=== PATIENT | female | born 1945 | race Caucasian/White ===

== ENCOUNTER 2023-04-25 14:16 | Outpatient (OUT) | payer MEDICARE, SELFPAY ==
[2023-04-25 15:15] LABS: Basophils Absolute Auto 0.1 10^3/uL (0.0-0.1); Eosinophils Absolute Auto 0.1 10^3/uL (0.0-0.7); Eosinophils Percent Auto 1.2 % (0.9-7.0); Hematocrit 38.3 % (36.0-48.0); Hemoglobin 12.5 g/dL (12.0-16.0); Immature Granulocytes Abs Auto 0.02 10^3/uL (0.00-0.03); Immature Granulocytes Pct Auto 0.3 % (0.0-0.5); Lymphocytes Absolute Auto 1.2 10^3/uL (1.2-3.8); Lymphocytes Percent Auto 17.4 % (20.5-60.0); Mean Corpuscular HGB Conc 32.6 g/dL (29.9-35.2); Mean Corpuscular Hemoglobin 29.6 pg (26.7-34.0); Mean Corpuscular Volume 90.5 fL (81.0-99.0); Mean Platelet Volume 11.5 fL (9.5-13.5); Monocytes Absolute Auto 0.6 10^3/uL (0.3-0.8); Monocytes Percent Auto 8.3 % (1.7-12.0); Neutrophils Absolute Auto 4.9 10^3/uL (1.4-6.5); Neutrophils Percent Auto 71.8 % (43.0-75.0); Platelet Count 197 10^3/uL (150-450); Red Blood Count 4.23 10^6/uL (4.20-5.40); Red Cell Distribution Width 13.8 % (11.0-15.0); White Blood Count 6.8 10^3/uL (4.0-11.0)
[2023-04-25 15:58] LABS: Alanine Aminotransferase 19 U/L (14-59); Albumin Globulin Ratio 0.6; Albumin Level 3.1 g/dL (3.4-5.0); Alkaline Phosphatase 102 U/L (46-116); Anion Gap 13.4; Aspartate Amino Transferase 11 U/L (15-37); BUN Creatinine Ratio 28.1; Bilirubin Total 0.6 mg/dL (0.2-1.0); Calcium 9.1 mg/dL (8.5-10.1); Carbon Dioxide 25.2 mmol/L (21.0-32.0); Chloride 97 mmol/L (98-107); Estimated GFR (African America 42 (>=60); Estimated GFR (Non-African Ame 35 (>=60); Globulin 4.9 g/dL; Potassium 5.6 mmol/L (3.5-5.1); Sodium 130 mmol/L (136-145)
[2023-04-25 16:13] LABS: Glucose 608 mg/dL (74-106)
== END 2023-04-25 14:17 ==
LOC: LAB 14:22
PROVIDERS: Visit Provider Internal Medicine Interventional Cardiology
DX: I48.0 Paroxysmal atrial fibrillation (principal)
CPT/HCPCS: 36415; 80053; 85025

== ENCOUNTER 2023-04-25 16:58 | Emergency (ER) | payer MEDICARE, SELFPAY ==
[2023-04-25 17:09] VITALS: BP 185/69; PULSE 52; RESP 16; TEMP 36.3; O2SAT 98; BMI 42.9
--- NOTE | 2023-04-25 17:13 | ED_ITS ---
Documented by User: Jenny Yeh MD 04/25/23 19:23 HPI - Recheck/Abnormal Lab/Rx General Chief Complaint: Recheck/Abnormal Lab/Rx Stated Complaint: HYPERGLYCEMIA Time Seen by Provider: 04/25/23 17:13 History of Present Illness HPI narrative: pt sent to the ed [facility] abnormal lab. Patient states she was seen by her doctor and sent to the net developer with [facility] for evaluation. She Dr. Oliveira ordered blood work as an outpatient. The patient was called and told to call to the emergency department for high blood sugar. Patient states she has been forgetful and forgot to take her insulin in the last 3 days. She denies any trauma. She denies any headache. She states she just felt sluggish in the last 3 days. She denies any nausea, vomiting, or diarrhea. She denies any chest pain, or shortness of breath. Denies any flank pain, hematuria, dysuria. She states she was admitted with dehydration and Shakila. 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 Related Data Home Medications Medication Instructions Recorded Confirmed alprazolam 0.25 mg tablet 0.25 mg PO TID PRN anxiety 04/25/23 04/25/23 atorvastatin 20 mg tablet 20 mg PO DAILY 04/25/23 04/25/23 biotin 5 mg capsule 5 mg PO DAILY 04/25/23 04/25/23 cholecalciferol (vitamin D3) 125 5,000 unit PO DAILY 04/25/23 04/25/23 mcg (5,000 unit) capsule diltiazem HCl 120 mg 120 mg PO Q24H 04/25/23 04/25/23 capsule,extended release 24 hr famotidine 20 mg tablet 20 mg PO BID 04/25/23 04/25/23 furosemide 40 mg tablet 40 mg PO DAILY 04/25/23 04/25/23 insulin glargine 100 unit/mL (3 45 unit subcut DAILY 04/25/23 04/25/23 mL) subcutaneous pen (Lantus Solostar U-100 Insulin) levothyroxine 112 mcg tablet 112 mcg PO DAILY 04/25/23 04/25/23 lisinopril 20 mg tablet 20 mg PO DAILY 04/25/23 04/25/23 metoprolol tartrate 100 mg tablet 150 mg PO BID 04/25/23 04/25/23 omega 3-zsq-yni-fish oil 1,200 mg 1 cap PO DAILY 04/25/23 04/25/23 (144 mg-216 mg) capsule (Fish Oil) oxycodone-acetaminophen 5 mg-325 1 tab PO BID PRN pain 04/25/23 04/25/23 mg tablet rivaroxaban 20 mg tablet (Xarelto) 20 mg PO QPM 04/25/23 04/25/23 selenium 200 mcg capsule 200 mcg PO DAILY 04/25/23 04/25/23 Allergies Allergy/AdvReac Type Severity Reaction Status Date / Time Sulfa (Sulfonamide Allergy Rash Verified 04/25/23 17:16 Antibiotics) shelfish Allergy Unknown Uncoded 04/25/23 17:16 Review of Systems ROS Status of ROS 10 or more systems reviewed and unremarkable except as noted in history and below [facility] Social History Smoking status: Former smoker Exam Narrative Exam Narrative: Nurses notes and vital signs reviewed and patient is not hypoxic. General: Nontoxic, Elderly, chronically ill, and in no apparent distress. Skin: Warm, dry, no pallor noted. No Rash Head: Normocephalic, atraumatic. Neck: Supple, non-tender. Eye: Pupils are equal, round and EOMI. No scleral icterus. Ears, Nose, Mouth, and Throat: TM clear, no posterior oropharynx erythema or nasal mucosal hypertrophy, uvula is mid-line Oral mucosa is dry Cardiovascular: Regular Rate and Rhythm without murmur, gallop or rub. Respiratory: No accessory muscle use or respiratory distress. Lungs are clear to auscultation, no wheezing, rales or rhonchi Chest Wall: no tenderness, Bilateral mastectomy scars. Back: No midline thoracic or lumbar vertebral tenderness. No CVA tenderness Musculoskeletal: bilateral upper extremity lymphedema,normal ROM, no calf or p opliteal tenderness, no lower extremity edema/swelling GI: Abdomen is soft, non-distended. Normal bowel sounds. No masses appreciated. No tenderness to palpation. No rebound, guarding, or rigidity noted. Neurological: A&O x4. No cranial nerve dysfunction observed. No truncal ataxia. Moves all extremities. Sensation intact. Psychiatric: Cooperative and interactive. Normal mood and affect. Constitutional Vital Signs - 24 hr 04/25/23 17:09 04/25/23 21:05 Temperature 97.4 F L Pulse Rate 62 Pulse Rate [Monitor] 52 L Respiratory Rate 16 16 Blood Pressure 167/82 H Blood Pressure [Right Arm] 185/69 H Pulse Oximetry 98 98 Oxygen Delivery Method Room Air Course Vital Signs Vital signs: Vital Signs Temperature 97.4 F L 04/25/23 17:09 Pulse Rate 52 L 04/25/23 17:09 Respiratory Rate 16 04/25/23 17:09 Blood Pressure 185/69 H 04/25/23 17:09 Pulse Oximetry 98 04/25/23 17:09 Oxygen Delivery Method Room Air 04/25/23 17:09 Temperature 97.4 F L 04/25/23 17:09 Pulse Rate 62 04/25/23 21:05 Respiratory Rate 16 04/25/23 21:05 Blood Pressure 167/82 H 04/25/23 21:05 Pulse Oximetry 98 04/25/23 21:05 Oxygen Delivery Method Room Air 04/25/23 17:09 MDM - Recheck/Abnormal Lab/Rx MDM Narrative Medical decision making narrative: pt was given IV fluids, and 10 units of insulin. Patient's potassium is 5.6. It should improve with insulin and IV fluids. Discussed all of the results with patient. She is not acidotic. CT scan of the brain is unremarkable. The patient wants to go home. The patient will be signed out to Dr. willis at the end of my shift for glucose rechecked, urinalysis check, complete IV fluids and disposition. Medical Records Attestation: I reviewed the patient's medical records. Lab Data Attestation: I reviewed the patient's lab results. Labs: Lab Results 04/25/23 04/25/23 04/25/23 Range/Units 17:35 17:50 17:59 VBG pH 7.346 (7.330-7.430) VBG pCO2 44.3 (40.0-52.0) mmHg Urine Color Lt. yellow (YELLOW) Urine Clarity Clear (CLEAR) Urine pH 5.5 (5.0-9.0) Ur Specific [place] 1.015 (1.005-1.025) Urine Protein 30 A (NEG/TRACE) mg/dL Urine Glucose (UA) >=1000 A (NEGATIVE) mg/dL Urine Ketones Negative (NEGATIVE) mg/dL Urine Occult Blood Trace-i (NEGATIVE) Urine Nitrite Negative (NEGATIVE) Urine Bilirubin Negative (NEGATIVE) Urine Urobilinogen 0.2 (0.2-1.0) EU/dL Ur Leukocyte Esterase Negative (NEGATIVE) Urine RBC 0-2 (0-2) #/HPF Urine WBC None seen (NONE SEEN) #/HPF Ur Squamous Epith Cells Rare (NONE/RARE) #/LPF Urine Crystals None seen (None Seen) #/HPF Urine Bacteria Trace A (NONE SEEN) #/HPF Urine Casts None seen (NONE SEEN) #/LPF Urine Mucus None seen (NONE SEEN) Ur Culture Indicated? No POC Glucose (74-106) mg/dL 04/25/23 04/25/23 04/25/23 Range/Units 18:51 19:30 20:16 VBG pH (7.330-7.430) VBG pCO2 (40.0-52.0) mmHg Urine Color (YELLOW) Urine Clarity (CLEAR) Urine pH (5.0-9.0) Ur Specific [place] (1.005-1.025) Urine Protein (NEG/TRACE) mg/dL Urine Glucose (UA) (NEGATIVE) mg/dL Urine Ketones (NEGATIVE) mg/dL Urine Occult Blood (NEGATIVE) Urine Nitrite (NEGATIVE) Urine Bilirubin (NEGATIVE) Urine Urobilinogen (0.2-1.0) EU/dL Ur Leukocyte Esterase (NEGATIVE) Urine RBC (0-2) #/HPF Urine WBC (NONE SEEN) #/HPF Ur Squamous Epith Cells (NONE/RARE) #/LPF Urine Crystals (None Seen) #/HPF Urine Bacteria (NONE SEEN) #/HPF Urine Casts (NONE SEEN) #/LPF Urine Mucus (NONE SEEN) Ur Culture Indicated? POC Glucose 513 H* 432 H 380 H (74-106) mg/dL 04/25/23 04/25/23 Range/Units 21:03 21:27 VBG pH (7.330-7.430) VBG pCO2 (40.0-52.0) mmHg Urine Color (YELLOW) Urine Clarity (CLEAR) Urine pH (5.0-9.0) Ur Specific [place] (1.005-1.025) Urine Protein (NEG/TRACE) mg/dL Urine Glucose (UA) (NEGATIVE) mg/dL Urine Ketones (NEGATIVE) mg/dL Urine Occult Blood (NEGATIVE) Urine Nitrite (NEGATIVE) Urine Bilirubin (NEGATIVE) Urine Urobilinogen (0.2-1.0) EU/dL Ur Leukocyte Esterase (NEGATIVE) Urine RBC (0-2) #/HPF Urine WBC (NONE SEEN) #/HPF Ur Squamous Epith Cells (NONE/RARE) #/LPF Urine Crystals (None Seen) #/HPF Urine Bacteria (NONE SEEN) #/HPF Urine Casts (NONE SEEN) #/LPF Urine Mucus (NONE SEEN) Ur Culture Indicated? POC Glucose 381 H 356 H (74-106) mg/dL Discharge Plan Discharge Chief Complaint: Recheck/Abnormal Lab/Rx Clinical Impression: Hyperglycemia Time of Disposition Decision: 21:36 Prescriptions / Home Meds: No Action alprazolam 0.25 mg tablet 0.25 mg PO TID PRN (Reason: anxiety) atorvastatin 20 mg tablet 20 mg PO DAILY cholecalciferol (vitamin D3) 125 mcg (5,000 unit) capsule 5,000 unit PO DAILY diltiazem HCl 120 mg capsule,extended release 24hr 120 mg PO Q24H famotidine 20 mg tablet 20 mg PO BID furosemide 40 mg tablet 40 mg PO DAILY insulin glargine [Lantus Solostar U-100 Insulin] 100 unit/mL (3 mL) insulin pen 45 unit SUBCUT DAILY levothyroxine 112 mcg tablet 112 mcg PO DAILY lisinopril 20 mg tablet 20 mg PO DAILY metoprolol tartrate 100 mg tablet 150 mg PO BID oxycodone-acetaminophen 5-325 mg tablet 1 tab PO BID PRN (Reason: pain) selenium 200 mcg capsule 200 mcg PO DAILY Xarelto 20 mg tablet 20 mg PO QPM Rx Instructions: must administer with evening meal omega 2-utq-pur-fish oil [Fish Oil] 1,200 (144-216) mg capsule 1 cap PO DAILY Rx Instructions: with food biotin 5 mg capsule 5 mg PO DAILY Instructions: Diabetic Hyperglycemia (ED) Stand Alone Forms: Portal Instructions Referrals: Theodora Cuevas MD [Primary Care Provider] - 1 week Documented by User: Luis Willis 04/25/23 21:37 HPI - Recheck/Abnormal Lab/Rx General Chief Complaint: Recheck/Abnormal Lab/Rx Stated Complaint: HYPERGLYCEMIA Time Seen by Provider: 04/25/23 17:13 Related Data Home Medications Medication Instructions Recorded Confirmed alprazolam 0.25 mg tablet 0.25 mg PO TID PRN anxiety 04/25/23 04/25/23 atorvastatin 20 mg tablet 20 mg PO DAILY 04/25/23 04/25/23 biotin 5 mg capsule 5 mg PO DAILY 04/25/23 04/25/23 cholecalciferol (vitamin D3) 125 5,000 unit PO DAILY 04/25/23 04/25/23 mcg (5,000 unit) capsule diltiazem HCl 120 mg 120 mg PO Q24H 04/25/23 04/25/23 capsule,extended release 24 hr famotidine 20 mg tablet 20 mg PO BID 04/25/23 04/25/23 furosemide 40 mg tablet 40 mg PO DAILY 04/25/23 04/25/23 insulin glargine 100 unit/mL (3 45 unit subcut DAILY 04/25/23 04/25/23 mL) subcutaneous pen (Lantus Solostar U-100 Insulin) levothyroxine 112 mcg tablet 112 mcg PO DAILY 04/25/23 04/25/23 lisinopril 20 mg tablet 20 mg PO DAILY 04/25/23 04/25/23 metoprolol tartrate 100 mg tablet 150 mg PO BID 04/25/23 04/25/23 omega 8-xox-tbh-fish oil 1,200 mg 1 cap PO DAILY 04/25/23 04/25/23 (144 mg-216 mg) capsule (Fish Oil) oxycodone-acetaminophen 5 mg-325 1 tab PO BID PRN pain 04/25/23 04/25/23 mg tablet rivaroxaban 20 mg tablet (Xarelto) 20 mg PO QPM 04/25/23 04/25/23 selenium 200 mcg capsule 200 mcg PO DAILY 04/25/23 04/25/23 Allergies Allergy/AdvReac Type Severity Reaction Status Date / Time Sulfa (Sulfonamide Allergy Rash Verified 04/25/23 17:16 Antibiotics) shelfish Allergy Unknown Uncoded 04/25/23 17:16 PFSH PFSH Social History Smoking status: Former smoker Exam Constitutional Vital Signs - 24 hr 04/25/23 17:09 04/25/23 21:05 Temperature 97.4 F L Pulse Rate 62 Pulse Rate [Monitor] 52 L Respiratory Rate 16 16 Blood Pressure 167/82 H Blood Pressure [Right Arm] 185/69 H Pulse Oximetry 98 98 Oxygen Delivery Method Room Air Course Vital Signs Vital signs: Vital Signs Temperature 97.4 F L 04/25/23 17:09 Pulse Rate 52 L 04/25/23 17:09 Respiratory Rate 16 04/25/23 17:09 Blood Pressure 185/69 H 04/25/23 17:09 Pulse Oximetry 98 04/25/23 17:09 Oxygen Delivery Method Room Air 04/25/23 17:09 Temperature 97.4 F L 04/25/23 17:09 Pulse Rate 62 04/25/23 21:05 Respiratory Rate 16 04/25/23 21:05 Blood Pressure 167/82 H 04/25/23 21:05 Pulse Oximetry 98 04/25/23 21:05 Oxygen Delivery Method Room Air 04/25/23 17:09 MDM - Recheck/Abnormal Lab/Rx MDM Narrative Medical decision making narrative: pt was given IV fluids, and 10 units of insulin. Patient's potassium is 5.6. It should improve with insulin and IV fluids. Discussed all of the results with patient. She is not acidotic. CT scan of the brain is unremarkable. The patient wants to go home. The patient will be signed out to Dr. willis at the end of my shift for glucose rechecked, urinalysis check, complete IV fluids and disposition. Patient signed out to me at 7pm shift change. I saw and examined the patient. Her glucose was downtrending so I did not order additional insulin. I ordered her to receive a second liter of NS IVF. Her blood sugar decreased to 351 and she was able to be discharged home with recommendation to resume her insulin and see her PCP for follow up. ED return if she worsens. - [place], DO Lab Data Labs: Lab Results 04/25/23 04/25/23 04/25/23 Range/Units 17:35 17:50 17:59 VBG pH 7.346 (7.330-7.430) VBG pCO2 44.3 (40.0-52.0) mmHg Urine Color Lt. yellow (YELLOW) Urine Clarity Clear (CLEAR) Urine pH 5.5 (5.0-9.0) Ur Specific [place] 1.015 (1.005-1.025) Urine Protein 30 A (NEG/TRACE) mg/dL Urine Glucose (UA) >=1000 A (NEGATIVE) mg/dL Urine Ketones Negative (NEGATIVE) mg/dL Urine Occult Blood Trace-i (NEGATIVE) Urine Nitrite Negative (NEGATIVE) Urine Bilirubin Negative (NEGATIVE) Urine Urobilinogen 0.2 (0.2-1.0) EU/dL Ur Leukocyte Esterase Negative (NEGATIVE) Urine RBC 0-2 (0-2) #/HPF Urine WBC None seen (NONE SEEN) #/HPF Ur Squamous Epith Cells Rare (NONE/RARE) #/LPF Urine Crystals None seen (None Seen) #/HPF Urine Bacteria Trace A (NONE SEEN) #/HPF Urine Casts None seen (NONE SEEN) #/LPF Urine Mucus None seen (NONE SEEN) Ur Culture Indicated? No POC Glucose (74-106) mg/dL 04/25/23 04/25/23 04/25/23 Range/Units 18:51 19:30 20:16 VBG pH (7.330-7.430) VBG pCO2 (40.0-52.0) mmHg Urine Color (YELLOW) Urine Clarity (CLEAR) Urine pH (5.0-9.0) Ur Specific [place] (1.005-1.025) Urine Protein (NEG/TRACE) mg/dL Urine Glucose (UA) (NEGATIVE) mg/dL Urine Ketones (NEGATIVE) mg/dL Urine Occult Blood (NEGATIVE) Urine Nitrite (NEGATIVE) Urine Bilirubin (NEGATIVE) Urine Urobilinogen (0.2-1.0) EU/dL Ur Leukocyte Esterase (NEGATIVE) Urine RBC (0-2) #/HPF Urine WBC (NONE SEEN) #/HPF Ur Squamous Epith Cells (NONE/RARE) #/LPF Urine Crystals (None Seen) #/HPF Urine Bacteria (NONE SEEN) #/HPF Urine Casts (NONE SEEN) #/LPF Urine Mucus (NONE SEEN) Ur Culture Indicated? POC Glucose 513 H* 432 H 380 H (74-106) mg/dL 04/25/23 04/25/23 Range/Units 21:03 21:27 VBG pH (7.330-7.430) VBG pCO2 (40.0-52.0) mmHg Urine Color (YELLOW) Urine Clarity (CLEAR) Urine pH (5.0-9.0) Ur Specific [place] (1.005-1.025) Urine Protein (NEG/TRACE) mg/dL Urine Glucose (UA) (NEGATIVE) mg/dL Urine Ketones (NEGATIVE) mg/dL Urine Occult Blood (NEGATIVE) Urine Nitrite (NEGATIVE) Urine Bilirubin (NEGATIVE) Urine Urobilinogen (0.2-1.0) EU/dL Ur Leukocyte Esterase (NEGATIVE) Urine RBC (0-2) #/HPF Urine WBC (NONE SEEN) #/HPF Ur Squamous Epith Cells (NONE/RARE) #/LPF Urine Crystals (None Seen) #/HPF Urine Bacteria (NONE SEEN) #/HPF Urine Casts (NONE SEEN) #/LPF Urine Mucus (NONE SEEN) Ur Culture Indicated? POC Glucose 381 H 356 H (74-106) mg/dL Discharge Plan Discharge Chief Complaint: Recheck/Abnormal Lab/Rx Clinical Impression: Hyperglycemia Time of Disposition Decision: 21:36 Prescriptions / Home Meds: No Action alprazolam 0.25 mg tablet 0.25 mg PO TID PRN (Reason: anxiety) atorvastatin 20 mg tablet 20 mg PO DAILY cholecalciferol (vitamin D3) 125 mcg (5,000 unit) capsule 5,000 unit PO DAILY diltiazem HCl 120 mg capsule,extended release 24hr 120 mg PO Q24H famotidine 20 mg tablet 20 mg PO BID furosemide 40 mg tablet 40 mg PO DAILY insulin glargine [Lantus Solostar U-100 Insulin] 100 unit/mL (3 mL) insulin pen 45 unit SUBCUT DAILY levothyroxine 112 mcg tablet 112 mcg PO DAILY lisinopril 20 mg tablet 20 mg PO DAILY metoprolol tartrate 100 mg tablet 150 mg PO BID oxycodone-acetaminophen 5-325 mg tablet 1 tab PO BID PRN (Reason: pain) selenium 200 mcg capsule 200 mcg PO DAILY Xarelto 20 mg tablet 20 mg PO QPM Rx Instructions: must administer with evening meal omega 5-bro-uiy-fish oil [Fish Oil] 1,200 (144-216) mg capsule 1 cap PO DAILY Rx Instructions: with food biotin 5 mg capsule 5 mg PO DAILY Instructions: Diabetic Hyperglycemia (ED) Stand Alone Forms: Portal Instructions Referrals: Theodora Cuevas MD [Primary Care Provider] - 1 week
--- NOTE | 2023-04-25 17:23 | CT_ITS ---
The [address] [address] Patient Name: JOE CALL MRN: [id number] date: 1945 Sex: F Assigned Patient Location: ER Current Patient Location: ER Accession/Order Number: [id number] Exam Date: 04/25/2023 17:54 Report Date: 04/25/2023 18:25 At the request of: LUZ SHAH Procedure: CT head/brain wo con EXAM: CT head/brain wo con HISTORY: forgetfull COMPARISON: None. TECHNIQUE: Axial CT scans through the head were obtained without IV contrast administration. Dose reduction techniques were achieved by using: automated exposure control and/or adjustment of mA and /or kV according to patient size and/or use of iterative reconstruction technique. FINDINGS: There is no evidence of acute intracranial hemorrhage or abnormal extra-axial fluid collection. No mass effect or midline shift is seen. There is no evidence of large acute territorial infarction. There is no hydrocephalus. Mild enlarged ventricles and sulci, consistent with age appropriate cerebral atrophy. Mild atherosclerotic calcifications are seen at anterior and posterior circulations. To the limit of CT, the posterior fossa appears unremarkable. No definite acute fracture is identified. Soft tissues are unremarkable. The visualized orbits show no abnormal mass. The visualized paranasal sinuses show no air-fluid level. Mastoid air cells are clear. IMPRESSION: No CT evidence of acute intracranial abnormality. Electronically authenticated by: RAVIN MARX Date: 04/25/2023 18:25
[2023-04-25 17:49] LABS: PCO2 VBG 44.3 mmHg (40.0-52.0); pH VBG 7.346 (7.330-7.430)
[2023-04-25 17:57] LABS: Bilirubin Urine NEGATIVE (NEGATIVE); Blood Urine TRACE-I (NEGATIVE); Clarity Urine CLEAR (CLEAR); Color Urine LT. YELLOW (YELLOW); Glucose Urine UA >=1000 mg/dL (NEGATIVE); Ketones Urine NEGATIVE (NEGATIVE); Leukocyte Esterase Urine NEGATIVE (NEGATIVE); Nitrite Urine NEGATIVE (NEGATIVE); Protein Urine 30 mg/dL (NEG/TRACE); Specific Gravity Urine 1.015 (1.005-1.025); Urobilinogen Urine 0.2 EU/dL (0.2-1.0); pH Urine 5.5 (5.0-9.0)
[2023-04-25 17:59] LABS: Urine Microscopic Indicated YES
[2023-04-25 18:13] LABS: Bacteria Urine TRACE #/HPF (NONE SEEN); Cast Seen? NONE SEEN #/LPF (NONE SEEN); Crystals Seen? None Seen #/HPF (None Seen); Mucus Urine NONE SEEN (NONE SEEN); RBC Urine 0-2 #/HPF (0-2); Squamous Epithelial Cell Urine RARE #/LPF (NONE/RARE); WBC Urine NONE SEEN #/HPF (NONE SEEN)
[2023-04-25 18:14] LABS: Urine Culture Indicated NO
[2023-04-25] MEDS: INSULIN REGULAR 300 UNITS/3 ML 10 UNIT INJ (18:24)
[2023-04-25] MEDS: 0.9 % SODIUM CHLORIDE 1,000 ML 999 ML IV (18:26)
[2023-04-25 19:04] LABS: Glucometer 513 mg/dL (74-106)
[2023-04-25 19:32] LABS: Glucometer 432 mg/dL (74-106)
[2023-04-25] MEDS: 0.9 % SODIUM CHLORIDE 1,000 ML 1000 ML IV (19:54)
[2023-04-25 20:18] LABS: Glucometer 380 mg/dL (74-106)
[2023-04-25 21:04] LABS: Glucometer 381 mg/dL (74-106)
[2023-04-25 21:05] VITALS: BP 167/82; PULSE 62; RESP 16; O2SAT 98
[2023-04-25 21:29] LABS: Glucometer 356 mg/dL (74-106)
== END 2023-04-25 21:52 | disposition home or self-care (01) ==
PROVIDERS: Emergency Medicine; Emergency Provider Emergency Medicine; PCP Family Medicine
DX: I48.0 Paroxysmal atrial fibrillation (principal); E11.65 Type 2 diabetes mellitus with hyperglycemia; E11.22 Type 2 diabetes mellitus with diabetic chronic kidney disease; N18.9 Chronic kidney disease, unspecified; Z79.899 Other long term (current) drug therapy; Z79.890 Hormone replacement therapy; Z79.4 Long term (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 insulin; Z87.891 Personal history of nicotine dependence
CPT/HCPCS: 36415; 70450; 80053; 81003; 81015; 82800; 85025; 99285

== ENCOUNTER 2023-07-08 00:35 | Inpatient (IN) | payer MEDICARE, SELFPAY ==
[2023-07-08] VITALS (134 sets, daily range): BP systolic 146–229; BP diastolic 57–109; PULSE 55–91; RESP 2–31; TEMP 36.6–36.8; O2SAT 73–98; BMI 43.3; BMI 45.3
--- NOTE | 2023-07-08 01:00 | ED.GENADUL1 ---
HPI - General Adult General Chief complaint: Abdominal Pain Stated complaint: GERD Time Seen by Provider: 07/08/23 00:57 Source: patient Mode of arrival: walk-in Limitations: no limitations History of Present Illness HPI narrative: presents complaining of shortness of breath. States it started yesterday . No associated chest pain, nausea or fever. Does have a past history of A. Fib, GERD and diabetes. Ex smoker. no complaint of cough or abdominal pain. recent weight gain Onset (ago): day(s) Related Data Home Medications Medication Instructions Recorded Confirmed alprazolam 0.25 mg tablet 0.25 mg PO TID PRN anxiety 04/25/23 07/08/23 atorvastatin 20 mg tablet 20 mg PO DAILY 04/25/23 07/08/23 biotin 5 mg capsule 5 mg PO DAILY 04/25/23 07/08/23 cholecalciferol (vitamin D3) 125 5,000 unit PO DAILY 04/25/23 07/08/23 mcg (5,000 unit) capsule diltiazem HCl 120 mg 120 mg PO Q24H 04/25/23 07/08/23 capsule,extended release 24 hr famotidine 20 mg tablet 20 mg PO BEDTIME PRN heartburn 04/25/23 07/08/23 furosemide 40 mg tablet 40 mg PO DAILY 04/25/23 07/08/23 insulin glargine 100 unit/mL (3 35 unit subcut BEDTIME 04/25/23 07/08/23 mL) subcutaneous pen (Lantus Solostar U-100 Insulin) levothyroxine 112 mcg tablet 112 mcg PO DAILY 04/25/23 07/08/23 lisinopril 20 mg tablet 20 mg PO DAILY 04/25/23 07/08/23 metoprolol tartrate 100 mg tablet 150 mg PO BID 04/25/23 07/08/23 omega 2-ljs-iwb-fish oil 1,200 mg 1 cap PO DAILY 04/25/23 07/08/23 (144 mg-216 mg) capsule (Fish Oil) oxycodone-acetaminophen 5 mg-325 1 tab PO BID PRN pain 04/25/23 07/08/23 mg tablet rivaroxaban 20 mg tablet (Xarelto) 20 mg PO QPM 04/25/23 07/08/23 selenium 200 mcg capsule 200 mcg PO DAILY 04/25/23 07/08/23 dapagliflozin propanediol 10 mg 10 mg PO DAILY 07/08/23 07/08/23 tablet (Farxiga) insulin aspar prot-insulin aspart 35 unit subcut DAILY 07/08/23 07/08/23 100 unit/mL (70-30) subcutaneous pen (Novolog Mix 70-30FlexPen U-100) spironolactone 25 mg tablet 25 mg PO DAILY 07/08/23 07/08/23 (Aldactone) sucralfate 1 gram tablet (Carafate) 1 g PO BID 07/08/23 07/08/23 Allergies Allergy/AdvReac Type Severity Reaction Status Date / Time Sulfa (Sulfonamide Allergy Rash Verified 04/25/23 17:16 Antibiotics) shelfish Allergy Unknown Uncoded 04/25/23 17:16 Review of Systems ROS Status of ROS 10 or more systems reviewed and unremarkable except as noted in history and below Respiratory Reports: shortness of breath [facility] PFS Medical History (Updated 07/08/23 @ 10:24 by Martine Ledesma DO) Family History (Updated 07/08/23 @ 04:02 by Mira Addison) Other Family history of CHF (congestive heart failure) Family history of cancer Family history of diabetes mellitus Family history of hypertension H/O mastectomy Social History Smoking status: Never smoker Exam Constitutional Vital Signs, click to edit/add: Last Vital Signs Temp 97.8 F 07/08/23 03:46 Pulse 73 07/08/23 18:30 Resp 19 07/08/23 17:00 BP 158/79 H 07/08/23 16:10 Pulse Ox 95 07/08/23 16:30 O2 Del Method Room Air 07/08/23 09:44 O2 Flow Rate 6 07/08/23 05:04 FiO2 40 07/08/23 05:31 Common normals: oriented x3 and alert Nutritional appearance: overweight Other: mild respiratory distress HENMT Common normals: normocephalic and head/scalp atraumatic Eye Common normals: PERRL, EOMs intact bilaterally and conjunctivae normal Respiratory Common normals: normal respiratory effort, no retractions, no use of accessory muscles and clear to auscultation bilaterally Cardio Common normals: regular rate, regular rhythm, S1 normal heart sound and S2 normal heart sound GI Common normals: Normal to inspection, nondistended, normoactive bowel sounds present, soft to palpation and non-tender Extremity Common normals: normal to inspection and full ROM Neuro Common normals: oriented x3, CN's II-XII intact bilaterally, moves all extremities and no focal motor deficits Psych Appearance: grossly normal Course Vital Signs Vital signs: Vital Signs Temperature 98.3 F 07/08/23 00:37 Pulse Rate 63 07/08/23 00:37 Respiratory Rate 22 07/08/23 00:37 Blood Pressure 184/82 H 07/08/23 00:37 Pulse Oximetry 94 L 07/08/23 00:37 Oxygen Delivery Method Room Air 07/08/23 00:37 Temperature 97.8 F 07/08/23 03:46 Pulse Rate 73 07/08/23 18:30 Respiratory Rate 19 07/08/23 17:00 Blood Pressure 158/79 H 07/08/23 16:10 Pulse Oximetry 95 07/08/23 16:30 Oxygen Delivery Method Room Air 07/08/23 09:44 Oxygen Delivery Flow Rate 6 07/08/23 05:04 Fraction of Inspired Oxygen 40 07/08/23 05:31 Medical Decision Making MDM Narrative Medical decision making narrative: patient presents complaining of shortness of breath. She is diabetic. Denies chest pain. Short of breath at rest and increased dyspnea with exertion. cxray with cardiomegaly and interstitial edema. Albumin ,0.6. Discussed with Telehospitalist and patient accepted for admission. EKG NSR without acute changes Lab Data Labs: Lab Results 07/08/23 07/08/23 07/08/23 Range/Units 01:29 01:30 02:55 WBC 8.3 (4.0-11.0) 10^3/uL RBC 3.83 L (4.20-5.40) 10^6/uL Hgb 11.4 L (12.0-16.0) g/dL Hct 34.6 L (36.0-48.0) % MCV 90.3 (81.0-99.0) fL MCH 29.8 (26.7-34.0) pg MCHC 32.9 (29.9-35.2) g/dL RDW 13.4 (11.0-15.0) % Plt Count 200 (150-450) 10^3/uL MPV 11.0 (9.5-13.5) fL Neut % (Auto) 72.3 (43.0-75.0) % Lymph % (Auto) 16.3 L (20.5-60.0) % [place] % (Auto) 8.6 (1.7-12.0) % Eos % (Auto) 1.9 (0.9-7.0) % Baso % (Auto) 0.7 (0.2-2.0) % Neut # (Auto) 6.0 (1.4-6.5) 10^3/uL Lymph # (Auto) 1.4 (1.2-3.8) 10^3/uL [place] # (Auto) 0.7 (0.3-0.8) 10^3/uL Eos # (Auto) 0.2 (0.0-0.7) 10^3/uL Baso # (Auto) 0.1 (0.0-0.1) 10^3/uL Abs Immat Gran (auto) 0.02 (0.00-0.03) 10^3/uL Imm/Tot Granulo (auto) 0.2 (0.0-0.5) % Sodium 138 (136-145) mmol/L Potassium 4.3 (3.5-5.1) mmol/L Chloride 105 (98-107) mmol/L Carbon Dioxide 25.5 (21.0-32.0) mmol/L Anion Gap 11.8 BUN 39.0 H (7.0-18.0) mg/dL Creatinine 1.29 H (0.55-1.02) mg/dL Est GFR ( Amer) 49 L (>=60) Est GFR (Non-Af Amer) 40 L (>=60) BUN/Creatinine Ratio 30.2 Glucose 193 H (74-106) mg/dL Calcium 8.4 L (8.5-10.1) mg/dL Total Bilirubin 0.3 (0.2-1.0) mg/dL AST 6 L (15-37) U/L ALT 8 L (14-59) U/L Alkaline Phosphatase 84 (46-116) U/L Troponin I High Sens 10.9 (4.0-51.3) pg/mL NT-Pro-B Natriuret Pep 1985.0 H* (<=1800.0) pg/mL Total Protein 7.4 (6.4-8.2) g/dL Albumin <0.6 L (3.4-5.0) g/dL Globulin 6.8 g/dL Albumin/Globulin Ratio 0.1 Lipase <10.0 L (73.0-393.0) U/L Urine Color Lt. yellow (YELLOW) Urine Clarity Clear (CLEAR) Urine pH 6.0 (5.0-9.0) Ur Specific [place] 1.020 (1.005-1.025) Urine Protein >=300 A (NEG/TRACE) mg/dL Urine Glucose (UA) Negative (NEGATIVE) mg/dL Urine Ketones Negative (NEGATIVE) mg/dL Urine Occult Blood Small A (NEGATIVE) Urine Nitrite Negative (NEGATIVE) Urine Bilirubin Negative (NEGATIVE) Urine Urobilinogen 0.2 (0.2-1.0) EU/dL Ur Leukocyte Esterase Negative (NEGATIVE) Urine RBC 0-2 (0-2) #/HPF Urine WBC 0-2 A (NONE SEEN) #/HPF Ur Squamous Epith Cells Many A (NONE/RARE) #/LPF Urine Crystals None seen (None Seen) #/HPF Urine Bacteria Small A (NONE SEEN) #/HPF Urine Casts None seen (NONE SEEN) #/LPF Urine Mucus None seen (NONE SEEN) Ur Culture Indicated? Yes Ur Random Creatinine 46.76 (20.00-300.00) mg/dL Ur Random Microalbumin 119.9 H (<=30.0) mg/dL U Random Total Protein Cancelled Ur Random Sodium Cancelled Ur 24 Hour Volume Cancelled Ur Total Protein 24 Hr Cancelled POC Glucose 171 H (74-106) mg/dL Imaging Data Chest x-ray: Radiologist's impression: At the request of: ANALISA WHYTE Procedure: XR chest 1V EXAMINATION:XR chest 1V INDICATION:short of breath COMPARISON:01/05/2023 TECHNIQUE:A single frontal view of the chest is submitted. FINDINGS: The cardiac silhouette is enlarged. There is prominence of the vascularity concerning for a degree of interstitial edema. No definitive acute infiltrates are present. There is no costophrenic angle blunting. IMPRESSION: Cardiac enlargement with a degree of interstitial edema. Electronically authenticated by: SHIRLEY CHRISTENSEN Date: 07/08/2023 01:59 Discharge Plan Discharge Chief Complaint: Abdominal Pain Clinical Impression: Edema due to hypoalbuminemia CHF (congestive heart failure) Qualifiers: Heart failure type: unspecified Heart failure chronicity: acute on chronic Qualified Code(s): I50.9 - Heart failure, unspecified Patient Disposition: Admitted As Inpatient Time of Disposition Decision: 02:54 Discharge Date/Time: 07/08/23 03:18
--- NOTE | 2023-07-08 01:03 | XR_ITS ---
The [address] [address] Patient Name: JOE CALL MRN: [id number] date: 1945 Sex: F Assigned Patient Location: ER Current Patient Location: ER Accession/Order Number: [id number] Exam Date: 07/08/2023 01:40 Report Date: 07/08/2023 01:59 At the request of: ANALISA WHYTE Procedure: XR chest 1V EXAMINATION:XR chest 1V INDICATION:short of breath COMPARISON:01/05/2023 TECHNIQUE:A single frontal view of the chest is submitted. FINDINGS: The cardiac silhouette is enlarged. There is prominence of the vascularity concerning for a degree of interstitial edema. No definitive acute infiltrates are present. There is no costophrenic angle blunting. XR/XR chest 1V IMPRESSION: Cardiac enlargement with a degree of interstitial edema. Electronically authenticated by: SHIRLEY CHRISTENSEN Date: 07/08/2023 01:59
[2023-07-08 01:32] LABS: Glucometer 171 mg/dL (74-106)
[2023-07-08 01:42] LABS: Basophils Absolute Auto 0.1 10^3/uL (0.0-0.1); Basophils Percent Auto 0.7 % (0.2-2.0); Eosinophils Absolute Auto 0.2 10^3/uL (0.0-0.7); Eosinophils Percent Auto 1.9 % (0.9-7.0); Hematocrit 34.6 % (36.0-48.0); Hemoglobin 11.4 g/dL (12.0-16.0); Immature Granulocytes Abs Auto 0.02 10^3/uL (0.00-0.03); Immature Granulocytes Pct Auto 0.2 % (0.0-0.5); Lymphocytes Absolute Auto 1.4 10^3/uL (1.2-3.8); Lymphocytes Percent Auto 16.3 % (20.5-60.0); Mean Corpuscular HGB Conc 32.9 g/dL (29.9-35.2); Mean Corpuscular Hemoglobin 29.8 pg (26.7-34.0); Mean Corpuscular Volume 90.3 fL (81.0-99.0); Monocytes Absolute Auto 0.7 10^3/uL (0.3-0.8); Monocytes Percent Auto 8.6 % (1.7-12.0); Neutrophils Percent Auto 72.3 % (43.0-75.0); Platelet Count 200 10^3/uL (150-450); Red Blood Count 3.83 10^6/uL (4.20-5.40); Red Cell Distribution Width 13.4 % (11.0-15.0); White Blood Count 8.3 10^3/uL (4.0-11.0)
[2023-07-08] MEDS: METHYLPREDNISOLONE SOD SUCC PF 125 MG/2 ML VIAL IVP (01:52)
[2023-07-08] MEDS: IPRATROPIUM/ALBUTEROL SULFATE 3 ML AMPUL.NEB IH (01:56)
[2023-07-08 02:00] LABS: Alanine Aminotransferase 8 U/L (14-59); Albumin Globulin Ratio 0.1; Albumin Level <0.6 g/dL (3.4-5.0); Alkaline Phosphatase 84 U/L (46-116); Anion Gap 11.8; Aspartate Amino Transferase 6 U/L (15-37); BUN Creatinine Ratio 30.2; Bilirubin Total 0.3 mg/dL (0.2-1.0); Calcium 8.4 mg/dL (8.5-10.1); Carbon Dioxide 25.5 mmol/L (21.0-32.0); Chloride 105 mmol/L (98-107); Estimated GFR (African America 49 (>=60); Estimated GFR (Non-African Ame 40 (>=60); Globulin 6.8 g/dL; Glucose 193 mg/dL (74-106); Lipase <10.0 U/L (73.0-393.0); Potassium 4.3 mmol/L (3.5-5.1); Sodium 138 mmol/L (136-145); Total Protein 7.4 g/dL (6.4-8.2)
[2023-07-08 02:05] LABS: Troponin I High Sensitivity 10.9 pg/mL (4.0-51.3)
[2023-07-08 04:25] LABS: Bilirubin Urine NEGATIVE (NEGATIVE); Blood Urine SMALL (NEGATIVE); Clarity Urine CLEAR (CLEAR); Color Urine LT. YELLOW (YELLOW); Glucose Urine UA NEGATIVE (NEGATIVE); Ketones Urine NEGATIVE (NEGATIVE); Leukocyte Esterase Urine NEGATIVE (NEGATIVE); Nitrite Urine NEGATIVE (NEGATIVE); Protein Urine >=300 mg/dL (NEG/TRACE); Urobilinogen Urine 0.2 EU/dL (0.2-1.0)
[2023-07-08 04:26] LABS: Urine Microscopic Indicated YES
[2023-07-08 04:33] LABS: Bacteria Urine SMALL #/HPF (NONE SEEN); RBC Urine 0-2 #/HPF (0-2); WBC Urine 0-2 #/HPF (NONE SEEN)
[2023-07-08 04:34] LABS: Cast Seen? NONE SEEN #/LPF (NONE SEEN); Crystals Seen? None Seen #/HPF (None Seen); Mucus Urine NONE SEEN (NONE SEEN); Squamous Epithelial Cell Urine MANY #/LPF (NONE/RARE); Urine Culture Indicated YES
--- NOTE | 2023-07-08 04:46 | W.PM.TELEPN ---
Progress Note: Subjective Subjective Interval history: Shortness of breath, retrosternal heaviness HPI: This is a 77 years old female with multiple comorbidities including diabetes, atrial fibrillation, hypertension, dyslipidemia, who presents for evaluation of above complaints. Patient stating that over the course of the last few days she developed shortness of breath and dyspnea on exertion. She denies any fevers, chills, nausea, vomiting or diarrhea. She has been diagnosed with congestive heart failure in the past. Patient follows with a cruise director. Patient reports of gaining about 30-40 pounds lately. Evaluation in the emergency room significant for signs of vascular congestion. Lab work remarkable for profound hypoalbuminemia. Troponins elevated but flat Exam Narrative Exam Narrative: Physical Exam: Not in distress, pleasant, lucid, cooperative, Head - atraumatic, eyes - pupils equal, round, reactive to light, extra ocular movement intact, MMM Neck - supple, thyroid not enlarged, LN not palpated Lungs - clear to auscultation, no dullness on percussion CVS - heart sounds S1, S2, no additional murmurs gallop, regular rate and rhythm Gastrointestinal?abdomen is soft, non-tender, non-distended, no organomegaly, positive bowel sounds Extremities no clubbing, cyanosis or edema Neurological?cranial nerve II?XII grossly intact, no meningeal signs, no cerebellar signs, no sensory deficit Musculoskeletal - joints, no effusions, ROM preserved Dermatological - the skin dry, warm, no rashes Psychiatric?patient is AAO X3, patient has normal affect Constitutional Vital Signs, click to edit/add: Last Vital Signs Temp 97.8 F 07/08/23 03:46 Pulse 73 07/08/23 04:05 Resp 19 07/08/23 04:00 BP 172/76 H 07/08/23 03:46 Pulse Ox 85 L 07/08/23 04:23 O2 Del Method Room Air 07/08/23 04:23 Progress Note: Objective Labs Labs: Short CBC 07/08/23 Range/Units 01:30 WBC 8.3 (4.0-11.0) 10^3/uL Hgb 11.4 L (12.0-16.0) g/dL Hct 34.6 L (36.0-48.0) % Plt Count 200 (150-450) 10^3/uL BMP 07/08/23 01:30 Sodium 138 Potassium 4.3 Chloride 105 Carbon Dioxide 25.5 BUN 39.0 H Creatinine 1.29 H Glucose 193 H Calcium 8.4 L Liver Function 07/08/23 Range/Units 01:30 Total Bilirubin 0.3 (0.2-1.0) mg/dL AST 6 L (15-37) U/L ALT 8 L (14-59) U/L Alkaline Phosphatase 84 (46-116) U/L Albumin <0.6 L (3.4-5.0) g/dL Urine 07/08/23 Range/Units 02:55 Urine Color Lt. yellow (YELLOW) Urine Clarity Clear (CLEAR) Urine pH 6.0 (5.0-9.0) Ur Specific [place] 1.020 (1.005-1.025) Urine Protein >=300 A (NEG/TRACE) mg/dL Urine Glucose (UA) Negative (NEGATIVE) mg/dL Progress Note: A&P Assessment and Plan (1) CHF (congestive heart failure): Assessment and Plan: CHF exacerbation, combined systolic and diastolic with impending Pulmonary edema -patient's condition is guarded and requires inpatient admission for close monitoring and medical management - admit to telemetry floor - heart failure protocol initiated with strict I/Os and daily weight - IV Lasix - O2 supplementation, use BiPAP if needed to - low threshold to transfer to ICU if no improvement - r/o acute CAD by serial Ai - will order an ECHO to ascertain an EF%, presence of wall motion abnormalities, valvular structures - consult Environmental Change Analyst to assist with management (2) Edema due to hypoalbuminemia: Assessment and Plan: See above Profound hypoalbuminemia noted Differential is broad would include nephrotic syndrome versus multiple myeloma versus diabetic nephrosclerosis versus others I ordered 24 hours urine protein collection as well as urine and serum protein electrophoresis as well as random urine sodium excretion and random protein/creatinine ratio Patient can benefit from consultation with photographer's model I ordered IV albumin to help with fluid management (3) Hyperglycemia: Assessment and Plan: DM- continue with ADA diet - hold off oral hypoglycemic agents while in the hospital to avoid hypoglycemic episodes - frequent accuchecks (TID AC + HS) - will provide coverage with long acting insulin as well as short acting insulin with meals - adjust as needed - hypoglycemia protocol in place (4) Atrial fibrillation: Assessment and Plan: Continue with rate/rhythm control Continue anticoagulation (5) Diabetes mellitus: Assessment and Plan: As above (6) Hypertension: Assessment and Plan: See above (7) Obesity: (8) Breast cancer: Assessment and Plan: See above Plan END: As the provider for the telehealth service, I attest that I introduced myself to the patient, provided my credentials, disclosed by location and determined that based on a review of the patient's chart and discussion with members of the patient's treatment team, telemedicine via real-time, 2 way, and interactive audio and video platform is an appropriate and effective means of providing the service. ?The patient and I mutually agree this visit is appropriate for telemedicine. ?The virtual encounter was taken place from? [place], [place]. ?The encounter took approximately 35 minutes. ?The nurse was present during the entire time and I was able to move the stethoscope in appropriate directions. ?The patient was evaluated at the Hospital ? Portions of this note may be dictated using [employer] voice recognition software. Variances in spelling and vocabulary are possible and unintentional. Not all errors may be caught and/or corrected. Please notify the author if any discrepancies are noted and/or if the meaning of any statement is unclear.? ? Patient verbally consented for treatment via video visit with patient currently located at [facility] and provider located in [place]. Telemedicine Attestation Telemedicine Attestation I conducted this encounter from [[place]] via secure live, [id number] video conference with the patient, located at [facility] with [CHF]. Prior to the interview, the risks and benefits of telemedicine were discussed with the patient and verbal consent was obtained.
[2023-07-08] MEDS: NITROGLYCERIN 2% 1 GRAM PACKET 1 GM TD (05:01)
[2023-07-08] MEDS: INSULIN DETEMIR 300 UNIT/3 ML INSULN.PEN 10 UNIT SUBQ (05:05)
[2023-07-08] MEDS: FUROSEMIDE 20 MG/2 ML VIAL IVP ×2 (05:14→16:15)
[2023-07-08 05:17] LABS: Creatinine Urine Random 46.76 mg/dL (20.00-300.00); Microalbumin Urine Random 119.9 mg/dL (<=30.0)
[2023-07-08 05:24] LABS: Basophils Absolute Auto 0.1 10^3/uL (0.0-0.1); Basophils Percent Auto 0.8 % (0.2-2.0); Eosinophils Absolute Auto 0.1 10^3/uL (0.0-0.7); Eosinophils Percent Auto 0.5 % (0.9-7.0); Hematocrit 40.9 % (36.0-48.0); Hemoglobin 13.4 g/dL (12.0-16.0); Immature Granulocytes Abs Auto 0.06 10^3/uL (0.00-0.03); Immature Granulocytes Pct Auto 0.5 % (0.0-0.5); Lymphocytes Percent Auto 8.3 % (20.5-60.0); Mean Corpuscular HGB Conc 32.8 g/dL (29.9-35.2); Mean Corpuscular Hemoglobin 29.8 pg (26.7-34.0); Mean Corpuscular Volume 91.1 fL (81.0-99.0); Mean Platelet Volume 10.6 fL (9.5-13.5); Monocytes Absolute Auto 0.2 10^3/uL (0.3-0.8); Monocytes Percent Auto 1.3 % (1.7-12.0); Neutrophils Absolute Auto 10.5 10^3/uL (1.4-6.5); Neutrophils Percent Auto 88.6 % (43.0-75.0); Platelet Count 228 10^3/uL (150-450); Red Blood Count 4.49 10^6/uL (4.20-5.40); Red Cell Distribution Width 13.5 % (11.0-15.0); White Blood Count 11.9 10^3/uL (4.0-11.0)
[2023-07-08 05:33] LABS: Anion Gap 11.6; BUN Creatinine Ratio 29.4; Calcium 8.6 mg/dL (8.5-10.1); Carbon Dioxide 25.4 mmol/L (21.0-32.0); Chloride 102 mmol/L (98-107); Estimated GFR (African America 50 (>=60); Estimated GFR (Non-African Ame 41 (>=60); Glucose 247 mg/dL (74-106); Sodium 135 mmol/L (136-145)
[2023-07-08 05:39] LABS: Chol HDL Ratio 2.1; Cholesterol 117 mg/dL (<=200); HDL Cholesterol 57 mg/dL (40-60); LDL Cholesterol Calculated 52.2 mg/dL; Prealbumin 22.1 mg/dL (20.9-45.5); Triglycerides 39 mg/dL (<=150); VLDL CHOLESTEROL 7.8 mg/dL
[2023-07-08] MEDS: ALBUMIN HUMAN 25 GM/100 ML PREMIX IV (05:49)
[2023-07-08] MEDS: LEVOTHYROXINE SODIUM 112 MCG TABLET PO (05:50)
[2023-07-08 06:12] LABS: Adenovirus NOT DETECTED (NOT DETECTE); Bordetella parapertussis NOT DETECTED (NOT DETECTE); Coronavirus 229E NOT DETECTED (NOT DETECTE); Coronavirus HKU1 NOT DETECTED (NOT DETECTE); Coronavirus NL63 NOT DETECTED (NOT DETECTE); Coronavirus OC43 NOT DETECTED (NOT DETECTE); Human Metapneumovirus NOT DETECTED (NOT DETECTE); Human Rhinovirus/Enterovirus NOT DETECTED (NOT DETECTE); Influenza A NOT DETECTED (NOT DETECTE); Influenza B NOT DETECTED (NOT DETECTE); Mycoplasma pneumoniae NOT DETECTED (NOT DETECTE); Parainfluenza Virus 1 NOT DETECTED (NOT DETECTE); Parainfluenza Virus 2 NOT DETECTED (NOT DETECTE); Parainfluenza Virus 3 NOT DETECTED (NOT DETECTE); Parainfluenza Virus 4 NOT DETECTED (NOT DETECTE); Respiratory Syncytial Virus NOT DETECTED (NOT DETECTE); SARS-CoV-2 NOT DETECTED (NOT DETECTE)
--- NOTE | 2023-07-08 06:35 | CA_ITS ---
Patient: JOE CALL Exam Date: 07/09/2023 : 1945 Gender:F Ordering : LD GUERRERO . Admission #: [id number] Family : DR RICA MEDRANO M.D. Order #: [id number] CLICK HERE TO VIEW EXAM ECHOCARDIOGRAM REPORT PROCEDURE: CA ECHO DOPPLER COMPLETE INDICATIONS: Acute decompensated CHF, atrial fibrillation, hypertension, diabetes COMPARISON: None. DESCRIPTION: COMPLETE ECHOCARDIOGRAM Real-time transthoracic echocardiography with 2D, M-mode, spectral and color flow Doppler performed. QUALITY: Technical quality was good. LEFT VENTRICLE: Normal chamber size. Moderate concentric left ventricular hypertrophy. LV EF: Normal left ventricular ejection fraction, (>55%). DIASTOLIC: Grade 2, moderate diastolic dysfunction. ATRIAL SEPTUM: Inadequately seen. LEFT ATRIUM: Moderate dilatation. RIGHT ATRIUM: Mild dilatation. RIGHT VENTRICLE: Normal chamber size. Normal right ventricular systolic function. TRICUSPID VALVE: Normal mobility and thickness. Mild regurgitation. Doppler studies reveal moderately (45-60) elevated right sided pressures. RVSP 48 mmHg MITRAL VALVE: Moderately thickened with decreased mobility. Mild mitral valve stenosis. Moderate mitral annular calcification. Mild mitral regurgitation. AORTIC VALVE: Normal trileaflet appearance. Mildly calcified aortic valve. No evidence of aortic valve stenosis. Trivial aortic regurgitation. AORTIC ROOT: Normal diameter and appearance. PULMONIC VALVE: Normal thickness and mobility. No stenosis. Trivial regurgitation. PERICARDIUM: No evidence of pericardial effusion. IVC: Collapses with inspirations. IVC is normal in size. CONCLUSION: 1. Global left ventricular systolic function is normal; visually estimated ejection fraction is 55 to 60% 2. No wall motion abnormalities 3. Moderate left ventricular hypertrophy 4. Grade 2, moderate diastolic dysfunction 5. Biatrial enlargement 6. The right ventricle is normal in size and systolic function 7. Mild tricuspid regurgitation 8. Moderately elevated right ventricular systolic pressure 9. Mild mitral regurgitation; mild mitral stenosis Adult Echocardiography Procedure Report Left Ventricle LVEDD (3.7 - 5.6 cm): 4.21 cm LVESD (2.2 - 4.0 cm): 2.65 cm LVIVS thickness (0.6 - 1.2 cm): 1.60 cm LVPW thickness (0.5 - 1.0 cm): 1.23 cm LVOT Max Gradient: 3.89 mm[Hg] LVOT Area (cm2): 0.99 m/s Peak Velocity (LVOT): 0.99 m/s Mean Velocity (LVOT): 0.57 m/s LVOT Diameter 1.74 cm Left Atrium LA Volume Index (2D A2C): 38.57 ml/m2 Left Atrium Systolic Dimension: 4.13 cm Mitral Valve MV E to A Ratio: 1.35 Mitral Valve A-Wave Peak Velocity: 1.04 m/s Mitral Valve E-Wave Peak Velocity: 1.41 m/s Right Ventricle Aorta AO Root Diam: 3.54 cm Ascending Ao Diam: 2.56 cm Aortic Valve AoV Area (Peak Jean Paul): 1.40 cm2, 1.40 cm2 AoV Area (VTI): 1.50 cm2, 1.50 cm2 Peak Velocity(Antegrade Flow): 1.67 m/s Peak Gradient(Antegrade Flow): 11.20 mm[Hg] Mean Velocity(Antegrade Flow): 1.15 m/s Mean Gradient(Antegrade Flow): 6.05 mm[Hg] Velocity Time Integral: 45.54 cm Tricuspid Valve Peak Velocity (Regurgitant Flow): 2.89 m/s, 3.34 m/s, 3.01 m/s Pulmonic Valve Peak Velocity: 0.98 m/s Peak Gradient: 3.81 mm[Hg], 3.88 mm[Hg] Right Atrium Right Atrium Systolic Pressure: 46.50 ml, 46.50 ml Dictated by: Mode Hernandez M.D. on 07/10/2023 at 13:39 Approved by: Mode Hernandez M.D. on 07/10/2023 at 13:44
--- NOTE | 2023-07-08 07:59 | PM.HP ---
H&P: HPI History of Present Illness Chief complaint: GERD Narrative: patient is a 77-year-old female with past medical history of type 2 diabetes insulin-dependent, atrial fibrillation on chronic anticoagulation,hyperlipidemia, GERD, hypothyroidism, hypertension who presented to the Emergency Room last night with shortness of breath that has been worsening over the last week. She also notes bilateral lower extremity edema on the top of ankles and feet. She states that she has been trying to use her walker and walk several laps in her house and yesterday developed some shortness of breath she reported that this gets worse if she is laying flat so she is not able to sleep well the last few nights. She woke her up last night with the inability to breathe so was taken to the Emergency Room for further evaluation. Last night was admitted to the hospital for acute decompensated heart failure, some pulmonary edema noted on chest x-ray and an elevated proBNP. She says that she's been watching her sodium intake but has noticed an increased weight gain of 10-20 pounds. She denies any underlying lung issues and she has not ever smoked. 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 Zapata, and she also sees [facility] cardiology. she reports she has been compliant with medications. Last night had a hypoxic episode and was placed on BiPAP and seemed to recover. She is saturating well on room air today and appears in no acute distress. Review of Systems ROS Narrative ROS: a complete review of systems were reviewed with patient and are positive as below or listed in History of Chief Complaint. General: no fever, chills, night sweats Head: no headache, trauma, visual changes, nausea or vomiting Skin: no reported rashes, itching or sores Eyes: no blurriness of vision Ears: no reported hearing loss, vertigo, earache, or tinnitus Throat: no sore throat, hoarseness, swelling of neck, or tongue pain Heart: no chest pain Lungs: shortness of breath no cough GI: no diarrhea or vomiting/nausea Urinary: no urinary urgency, frequency or pain Neuro: no numbness or tingling HEM: no bleeding issues or bruising ENDO: thyroid problems Psych: no anxiety or depression [facility] Medical History (Updated 07/08/23 @ 10:24 by Martine Ledesma DO) Family History (Updated 07/08/23 @ 04:02 by Mira Addison) Other Family history of CHF (congestive heart failure) Family history of cancer Family history of diabetes mellitus Family history of hypertension H/O mastectomy Social History Smoking status: Never smoker Meds Home Medications and Allergies Home Medications Medication Instructions Recorded Confirmed Type alprazolam 0.25 mg tablet 0.25 mg PO TID PRN anxiety 04/25/23 07/08/23 History atorvastatin 20 mg tablet 20 mg PO DAILY 04/25/23 07/08/23 History biotin 5 mg capsule 5 mg PO DAILY 04/25/23 07/08/23 History cholecalciferol (vitamin D3) 125 5,000 unit PO DAILY 04/25/23 07/08/23 History mcg (5,000 unit) capsule diltiazem HCl 120 mg 120 mg PO Q24H 04/25/23 07/08/23 History capsule,extended release 24 hr famotidine 20 mg tablet 20 mg PO BEDTIME PRN heartburn 04/25/23 07/08/23 History furosemide 40 mg tablet 40 mg PO DAILY 04/25/23 07/08/23 History insulin glargine 100 unit/mL (3 35 unit subcut BEDTIME 04/25/23 07/08/23 History mL) subcutaneous pen (Lantus Solostar U-100 Insulin) levothyroxine 112 mcg tablet 112 mcg PO DAILY 04/25/23 07/08/23 History lisinopril 20 mg tablet 20 mg PO DAILY 04/25/23 07/08/23 History metoprolol tartrate 100 mg tablet 150 mg PO BID 04/25/23 07/08/23 History omega 2-xhv-zmx-fish oil 1,200 mg 1 cap PO DAILY 04/25/23 07/08/23 History (144 mg-216 mg) capsule (Fish Oil) oxycodone-acetaminophen 5 mg-325 1 tab PO BID PRN pain 04/25/23 07/08/23 History mg tablet rivaroxaban 20 mg tablet (Xarelto) 20 mg PO QPM 04/25/23 07/08/23 History selenium 200 mcg capsule 200 mcg PO DAILY 04/25/23 07/08/23 History dapagliflozin propanediol 10 mg 10 mg PO DAILY 07/08/23 07/08/23 History tablet (Farxiga) insulin aspar prot-insulin aspart 35 unit subcut DAILY 07/08/23 07/08/23 History 100 unit/mL (70-30) subcutaneous pen (Novolog Mix 70-30FlexPen U-100) spironolactone 25 mg tablet 25 mg PO DAILY 07/08/23 07/08/23 History (Aldactone) sucralfate 1 gram tablet (Carafate) 1 g PO BID 07/08/23 07/08/23 History Allergies Allergy/AdvReac Type Severity Reaction Status Date / Time Sulfa (Sulfonamide Allergy Rash Verified 04/25/23 17:16 Antibiotics) shelfish Allergy Unknown Uncoded 04/25/23 17:16 Exam Narrative Exam Narrative: General: Patient is alert, and oriented to person, place and time with normal affect, proper hygiene, morbid obesity Skin: no visible rashes, or ulcers Head: atraumatic, acephalic Eyes: PERRLA, no nystagmus present, conjunctiva clear, no scleral icterus Ears: normal Tympanic Membrane, normal gross auditory acuity Nose: symmetric, no discharge, no maxillary or frontal sinus tenderness Mouth/Throat: no erythema, exudate, or tonsillar enlargement, normal dentition Neck: no masses palpated, normal thyroid, no JVD or audible carotid bruits Heart: Normal rate and rhythm, no murmurs/rubs/gallops Lungs: no audible wheezes, crackles and diminished breath sounds all lung morley Abdomen: Normal audible bowel sounds, no distension, No palpable masses, no organomegaly, no rebound/guarding/ or rigidity Musculoskeletal: muscle atrophy noted, ROM is limited due to being in hospital bed, +1 swelling bilateral lower extremities Vascular: Normal carotid, radial, femoral, posterior tibial, and dorsalis pedis pulses Lymph: no supraclavicular, axillary, or anterior/posterior cervical adenopathy Neuro: CN II-X grossly intact, normal sensation upper and lower extremities Constitutional Vital Signs, click to edit/add: Last Vital Signs Temp 97.8 F 07/08/23 03:46 Pulse 73 07/08/23 05:31 Resp 19 07/08/23 05:31 BP 183/92 H 07/08/23 05:31 Pulse Ox 98 07/08/23 05:31 O2 Del Method Room Air 07/08/23 04:45 O2 Flow Rate 6 07/08/23 05:04 FiO2 40 07/08/23 05:31 Results Labs Labs: Short CBC 07/08/23 07/08/23 Range/Units 01:30 05:16 WBC 8.3 11.9 H (4.0-11.0) 10^3/uL Hgb 11.4 L 13.4 (12.0-16.0) g/dL Hct 34.6 L 40.9 (36.0-48.0) % Plt Count 200 228 (150-450) 10^3/uL BMP 07/08/23 07/08/23 01:30 05:16 Sodium 138 135 L Potassium 4.3 4.0 Chloride 105 102 Carbon Dioxide 25.5 25.4 BUN 39.0 H 37.0 H Creatinine 1.29 H 1.26 H Glucose 193 H 247 H Calcium 8.4 L 8.6 Liver Function 07/08/23 Range/Units 01:30 Total Bilirubin 0.3 (0.2-1.0) mg/dL AST 6 L (15-37) U/L ALT 8 L (14-59) U/L Alkaline Phosphatase 84 (46-116) U/L Albumin <0.6 L (3.4-5.0) g/dL Urine 07/08/23 Range/Units 02:55 Urine Color Lt. yellow (YELLOW) Urine Clarity Clear (CLEAR) Urine pH 6.0 (5.0-9.0) Ur Specific [place] 1.020 (1.005-1.025) Urine Protein >=300 A (NEG/TRACE) mg/dL Urine Glucose (UA) Negative (NEGATIVE) mg/dL Assessment and Plan Assessment and Plan (1) CHF (congestive heart failure): Assessment and Plan: will continue Lasix 20 mg IV twice a day this is an increase by 20 mg daily from her oral intake. We'll continue to monitor strict I's and O's, fluid restriction of fifteen hundred mL's, daily weights. Chest x-ray consistent with cardiomegaly and pulmonary edema. This is most likely the cause of her hypoxic episode last night requiring BiPAP. Patient is in the ICU for closer monitoring of care. Echocardiogram was ordered. Cardiology consult in the morning. Monitor daily pro-BNPs and electrolytes. Qualifiers: Heart failure type: unspecified Heart failure chronicity: acute on chronic Qualified Code(s): I50.9 - Heart failure, unspecified (2) Atrial fibrillation: Assessment and Plan: currently rate controlled, continue oral diltiazem, metoprolol, lisinopril, Aldactone (3) Edema due to hypoalbuminemia: Assessment and Plan: most likely the hypoalbuminemia is secondary to 3rd spacing the nighttime doctor gave her some albumin and we'll see how she does with IV Lasix. (4) Diabetes mellitus: Assessment and Plan: monitor sugars with meals and at nighttime. Sliding scale insulin (5) Hypertension: Assessment and Plan: stable on home medications continue these (6) Obesity: Assessment and Plan: would benefit from weight reduction (7) Breast cancer: (8) Lymph edema: (9) Hypothyroidism (acquired): Assessment and Plan: continue home medication Plan patient is a full code Will continue Xarelto for dvt prophylaxis patient is inpatient status and is expected to stay more than two midnights
[2023-07-08] MEDS: CANAGLIFLOZIN 100 MG TABLET 300 MG PO (08:12)
[2023-07-08] MEDS: METRONIDAZOLE 250 MG TABLET 500 MG PO ×2 (08:12→22:29)
[2023-07-08] MEDS: LISINOPRIL 20 MG TABLET PO (08:12)
[2023-07-08] MEDS: ASPIRIN 81 MG TAB.CHEW PO (08:12)
[2023-07-08] MEDS: ATORVASTATIN CALCIUM 20 MG TABLET PO (08:13)
[2023-07-08] MEDS: FAMOTIDINE 20 MG TABLET PO ×2 (08:13→22:31)
[2023-07-08] MEDS: DILTIAZEM HCL 120 MG CAP.ER.24H PO (08:13)
[2023-07-08] MEDS: METOPROLOL TARTRATE 100 MG TABLET 150 MG PO ×2 (08:13→22:30)
[2023-07-08] MEDS: INSULIN ASPART 300 UNIT/3 ML PEN SUBQ ×4 (08:13→22:37)
[2023-07-08 08:18] LABS: Glucometer 272 mg/dL (74-106)
[2023-07-08 08:20] LABS: Troponin I High Sensitivity 11.1 pg/mL (4.0-51.3)
[2023-07-08 11:13] LABS: Troponin I High Sensitivity 12.3 pg/mL (4.0-51.3)
[2023-07-08 11:43] LABS: Glucometer 231 mg/dL (74-106)
--- NOTE | 2023-07-08 12:45 | ECG_ITS ---
The [facility] Test Date: 2023-07-08 Pat Name: JOE CALL Department: Room: - Gender: Female Display Maker: : 1945 Requested By: SHANTEL STEVEN Order Number: [id number] Reading MD: SHEBA POWELL Measurements Intervals [place] Rate: 63 P: 63 NH: 182 QRS: 31 QRSD: 94 T: 78 QT: 422 QTc: 430 Interpretive Statements 1100 Sinus rhythm 3114 Cannot rule out anterior myocardial infarction, age undetermined 9150 abnormal ECG No previous ECG available for comparison Electronically Signed On 07-08-2023 18:16:03 EDT by SHEBA POWELL
[2023-07-08] MEDS: SUCRALFATE 1 GM TABLET PO (16:15)
[2023-07-08 16:22] LABS: Glucometer 223 mg/dL (74-106)
[2023-07-08] MEDS: RIVAROXABAN 10 MG TABLET 20 MG PO (18:02)
[2023-07-08 22:46] LABS: Glucometer 258 mg/dL (74-106)
[2023-07-09] VITALS (61 sets, daily range): BP systolic 96–173; BP diastolic 50–85; PULSE 51–95; RESP 12–18; TEMP 36.5–37.1; O2SAT 94–96
[2023-07-09 04:16] LABS: Glucometer 262 mg/dL (74-106)
[2023-07-09 05:07] LABS: Basophils Percent Auto 0.2 % (0.2-2.0); Hematocrit 36.5 % (36.0-48.0); Hemoglobin 11.8 g/dL (12.0-16.0); Immature Granulocytes Abs Auto 0.08 10^3/uL (0.00-0.03); Immature Granulocytes Pct Auto 0.6 % (0.0-0.5); Lymphocytes Absolute Auto 0.8 10^3/uL (1.2-3.8); Lymphocytes Percent Auto 6.3 % (20.5-60.0); Mean Corpuscular HGB Conc 32.3 g/dL (29.9-35.2); Mean Corpuscular Hemoglobin 29.5 pg (26.7-34.0); Mean Corpuscular Volume 91.3 fL (81.0-99.0); Monocytes Absolute Auto 0.6 10^3/uL (0.3-0.8); Monocytes Percent Auto 4.4 % (1.7-12.0); Neutrophils Absolute Auto 11.2 10^3/uL (1.4-6.5); Neutrophils Percent Auto 88.5 % (43.0-75.0); Platelet Count 200 10^3/uL (150-450); Red Cell Distribution Width 13.6 % (11.0-15.0); White Blood Count 12.7 10^3/uL (4.0-11.0)
[2023-07-09 05:47] LABS: Alanine Aminotransferase 15 U/L (14-59); Albumin Globulin Ratio 0.8; Albumin Level 3.2 g/dL (3.4-5.0); Alkaline Phosphatase 75 U/L (46-116); Aspartate Amino Transferase 11 U/L (15-37); BUN Creatinine Ratio 30.4; Bilirubin Total 0.5 mg/dL (0.2-1.0); Calcium 8.7 mg/dL (8.5-10.1); Carbon Dioxide 22.2 mmol/L (21.0-32.0); Chloride 103 mmol/L (98-107); Estimated GFR (African America 45 (>=60); Estimated GFR (Non-African Ame 37 (>=60); Globulin 4.1 g/dL; Glucose 303 mg/dL (74-106); Potassium 4.2 mmol/L (3.5-5.1); Sodium 136 mmol/L (136-145); Total Protein 7.3 g/dL (6.4-8.2)
[2023-07-09] MEDS: FUROSEMIDE 20 MG/2 ML VIAL IVP ×2 (06:15→16:29)
[2023-07-09] MEDS: LEVOTHYROXINE SODIUM 112 MCG TABLET PO (06:17)
[2023-07-09 07:39] LABS: Glucometer 265 mg/dL (74-106)
--- NOTE | 2023-07-09 07:51 | PC.NURSE ---
Patient currently on room air sating at 94%. No visible s/s of distress at this time. No need for BIPAP
--- NOTE | 2023-07-09 08:19 | XR_ITS ---
The [address] [address] Patient Name: JOE CALL MRN: [id number] date: 1945 Sex: F Assigned Patient Location: ICU Current Patient Location: ICU Accession/Order Number: [id number] Exam Date: 07/09/2023 08:35 Report Date: 07/09/2023 08:58 At the request of: LD GUERRERO Procedure: XR chest 1V PROCEDURE: XR chest 1V DATE: 07/09/2023 7:35 AM CDT COMPARISONS: 07/08/2023 CLINICAL INDICATION: 77 years Female shortness of breath, chf FINDINGS: The heart is mildly enlarged and stable. The pulmonary vasculature appears mildly prominent but not as prominent as on previous exam. There is slight diffuse increased interstitial markings likely representing some interstitial fluid due to pulmonary vascular congestion, decreased from previous day. There is small left pleural effusion also seen on previous day. There is no right pleural effusion. There is no evidence of pneumothorax. XR/XR chest 1V IMPRESSION: Evidence of mild pulmonary vascular congestion, significantly less prominent than previous day. Electronically authenticated by: DADA CORRALES Date: 07/09/2023 08:58
--- NOTE | 2023-07-09 08:28 | PM.PN ---
Progress Note: Subjective Subjective Interval history: patient is a 77-year-old female with past medical history of type 2 diabetes insulin-dependent, atrial fibrillation on chronic anticoagulation,hyperlipidemia, GERD, hypothyroidism, hypertension who presented to the Emergency Room with shortness of breath that has been worsening over the last week. She also notes bilateral lower extremity edema on the top of ankles and feet. She states that she has been trying to use her walker and walk several laps in her house and yesterday developed some shortness of breath she reported that this gets worse if she is laying flat so she is not able to sleep well the last few nights. She woke her up with the inability to breathe so was taken to the Emergency Room for further evaluation. She was admitted to the hospital for acute decompensated heart failure, some pulmonary edema noted on chest x-ray and an elevated proBNP. She says that she's been watching her sodium intake but has noticed an increased weight gain of 10-20 pounds. She denies any underlying lung issues and she has not ever smoked. 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 Cuevas, and she also sees [facility] cardiology. she reports she has been compliant with medications. On night of admission, had hypoxic episode and was placed on BiPAP and seemed to recover. She is saturating well on room air today and no events last night and appears in no acute distress. She is down 2.2L of fluid. She overall feels much improved today. Exam Narrative Exam Narrative: General: Patient is alert, and oriented to person, place and time with normal affect, proper hygiene Skin: no visible rashes, or ulcers Head: atraumatic, acephalic Eyes: PERRLA, no nystagmus present, conjunctiva clear, no scleral icterus Ears: normal Tympanic Membrane, normal gross auditory acuity Nose: symmetric, no discharge, no maxillary or frontal sinus tenderness Mouth/Throat: no erythema, exudate, or tonsillar enlargement, normal dentition Neck: no masses palpated, normal thyroid, no JVD or audible carotid bruits Heart: Normal rate and rhythm, no murmurs/rubs/gallops Lungs: no audible wheezes, crackles and normal breath sounds all lung morley Abdomen: Normal audible bowel sounds, no distension, No palpable masses, no organomegaly, no rebound/guarding/ or rigidity Musculoskeletal: muscle atrophy noted, ROM is limited due to being in hospital bed, no swelling bilateral lower extremities Vascular: Normal carotid, radial, femoral, posterior tibial, and dorsalis pedis pulses Lymph: no supraclavicular, axillary, or anterior/posterior cervical adenopathy Neuro: CN II-X grossly intact, normal sensation upper and lower extremities Constitutional Vital Signs, click to edit/add: Last Vital Signs Temp 98.7 F 07/09/23 06:16 Pulse 71 07/09/23 06:20 Resp 12 07/09/23 06:16 BP 147/85 H 07/09/23 06:16 Pulse Ox 96 07/09/23 06:16 O2 Del Method Room Air 07/09/23 06:08 O2 Flow Rate 6 07/08/23 05:04 FiO2 40 07/08/23 05:31 Progress Note: Objective Labs Labs: Short CBC 07/09/23 Range/Units 04:45 WBC 12.7 H (4.0-11.0) 10^3/uL Hgb 11.8 L (12.0-16.0) g/dL Hct 36.5 (36.0-48.0) % Plt Count 200 (150-450) 10^3/uL BMP 07/09/23 04:45 Sodium 136 Potassium 4.2 Chloride 103 Carbon Dioxide 22.2 BUN 42.0 H Creatinine 1.38 H Glucose 303 H Calcium 8.7 Liver Function 07/09/23 Range/Units 04:45 Total Bilirubin 0.5 (0.2-1.0) mg/dL AST 11 L (15-37) U/L ALT 15 (14-59) U/L Alkaline Phosphatase 75 (46-116) U/L Albumin 3.2 L (3.4-5.0) g/dL Progress Note: A&P Assessment and Plan (1) CHF (congestive heart failure): Qualifiers: Heart failure chronicity: acute on chronic Heart failure type: unspecified Qualified Code(s): I50.9 - Heart failure, unspecified (2) Atrial fibrillation: (3) Edema due to hypoalbuminemia: (4) Diabetes mellitus: (5) Hypertension: (6) Obesity: (7) Breast cancer: (8) Lymph edema: (9) Hypothyroidism (acquired): Plan (1) CHF (congestive heart failure): Assessment and Plan: will continue Lasix 20 mg IV twice a day this is an increase by 20 mg daily from her oral intake. Will continue to monitor strict I's and O's, fluid restriction of 1500 mL's, daily weights. Chest x-ray consistent with cardiomegaly and pulmonary edema, repeat X-ray shows improvement today. Patient is in the ICU for closer monitoring of care. Echocardiogram was ordered. Cardiology consult. Monitor daily pro-BNPs and electrolytes. Qualifiers: Heart failure type: unspecified Heart failure chronicity: acute on chronic Qualified Code(s): I50.9 - Heart failure, unspecified (2) Atrial fibrillation: Assessment and Plan: currently rate controlled, continue oral diltiazem, metoprolol, lisinopril, Aldactone (3) Edema due to hypoalbuminemia: Assessment and Plan: most likely the hypoalbuminemia is secondary to 3rd spacing the nighttime doctor gave her some albumin and we'll see how she does with IV Lasix, back in range today (4) Diabetes mellitus: Assessment and Plan: monitor sugars with meals and at nighttime. Sliding scale insulin (5) Hypertension: Assessment and Plan: stable on home medications continue these (6) Obesity: Assessment and Plan: would benefit from weight reduction (7) Breast cancer: (8) Lymph edema: (9) Hypothyroidism (acquired): Assessment and Plan: continue home medication Plan patient is a full code Will continue Xarelto for dvt prophylaxis patient is inpatient status and is expected to stay more than two midnights
[2023-07-09] MEDS: INSULIN ASPART 300 UNIT/3 ML PEN SUBQ ×4 (08:45→21:39)
[2023-07-09] MEDS: DILTIAZEM HCL 120 MG CAP.ER.24H PO (08:46)
[2023-07-09] MEDS: ASPIRIN 81 MG TAB.CHEW PO (08:46)
[2023-07-09] MEDS: ATORVASTATIN CALCIUM 20 MG TABLET PO (08:46)
[2023-07-09] MEDS: LISINOPRIL 20 MG TABLET PO (08:46)
[2023-07-09] MEDS: FAMOTIDINE 20 MG TABLET PO ×2 (08:46→20:08)
[2023-07-09] MEDS: CANAGLIFLOZIN 100 MG TABLET 300 MG PO (08:46)
[2023-07-09] MEDS: SPIRONOLACTONE 25 MG TABLET PO (08:47)
[2023-07-09] MEDS: METRONIDAZOLE 250 MG TABLET 500 MG PO ×2 (08:47→20:08)
[2023-07-09] MEDS: SUCRALFATE 1 GM TABLET PO ×2 (08:47→16:29)
[2023-07-09] MEDS: METOPROLOL TARTRATE 100 MG TABLET 150 MG PO ×2 (08:47→20:08)
--- NOTE | 2023-07-09 11:28 | CM.NOTE ---
Rounds made with Dr. Ledesma, awaiting Cardiology to see pt for further recommendations. No discharge today. PT recommends HH, will meet with pt for preference of HH company.
[2023-07-09 11:31] LABS: Glucometer 263 mg/dL (74-106)
--- NOTE | 2023-07-09 12:03 | SWNOTE1 ---
SW met with pt to discuss dc needs. Pt lives at home with her . Pt's was in room during assessment. Pt uses a 4 wheeled walker at home and she has a cleaning lady that comes in once a week that is great. Pt stated her does all the cooking and grocery shopping. Pt voiced she does her own exercise program at home. She stated she walks around the house (it is a big house) and it usually takes her about 24 minutes. She does this once in morning and once in evening. In between that time she is getting up and down to let her animals outside. Pt does live in a 2 story home, but has not been upstairs, her goal is to get back to being able to do steps. Pt and SW spoke about home health coming in for a short time and that it would be beneficial for her. At this time pt is refusing home health and is going to continue her own exercise program at home. SW advised if she changes her mind to let SW know. SW reviewed Important message from Medicare form with pt. She voiced understanding, no questions. Pt signed form, original given to patient and copy placed in chart.
--- NOTE | 2023-07-09 14:47 | PM.CACN ---
History of Present Illness History of Present Illness Consult date: 07/09/23 Requesting physician: Martine Ledesma Consult reason: congestive heart failure Chief complaint: HFpEF Narrative: 77-year-old female is established with [place] [facility] for HFpEF and hx of PAF Patient noticed increased weight gain of 10 to 20 pounds over the last few weeks has been getting more short of breath with lower extremity swelling so she came to the ER. She has known history of HFpEF and had recent CARMELO. She states she thinks she was started on a water pill about a month ago but per documentation she was started 04/2023 on Lasix and was to have repeat BMP to evaluate kidney function history of recent CARMELO to see if diuretics need adjusted. It is unclear how much Lasix she was taking at home, home med list here at [place] states 20 mg daily and documentation 3 [facility] states 40 mg daily. Patient was started on 20 mg of Lasix IV twice daily and is diuresing well with urine output of 2 L in the last 24 hours and she is net -2.58 L. Labs: Sodium 136, K4.2, BUN 42, creatinine 1.38 I discussed with patient she will likely need to be on Lasix 40 mg daily at home until seen on follow-up in 1 week from discharge with BMP. Review of Systems ROS Constitutional Reports: change in weight, fatigue and change in sleep pattern Cardiovascular Reports: edema, swelling of feet/ankles, shortness of breath with exertion and shortness of breath when lying down Respiratory Reports: shortness of breath Musculoskeletal Reports: extremity swelling PFSH PFSH Medical History (Updated 07/08/23 @ 10:24 by Martine Ledesma DO) Family History (Updated 07/08/23 @ 04:02 by Mira Addison) Other Family history of CHF (congestive heart failure) Family history of cancer Family history of diabetes mellitus Family history of hypertension H/O mastectomy Social History Smoking status: Never smoker Meds Home Medications and Allergies Home Medications Medication Instructions Recorded Confirmed Type alprazolam 0.25 mg tablet 0.25 mg PO TID PRN anxiety 04/25/23 07/08/23 History atorvastatin 20 mg tablet 20 mg PO DAILY 04/25/23 07/08/23 History biotin 5 mg capsule 5 mg PO DAILY 04/25/23 07/08/23 History cholecalciferol (vitamin D3) 125 5,000 unit PO DAILY 04/25/23 07/08/23 History mcg (5,000 unit) capsule diltiazem HCl 120 mg 120 mg PO Q24H 04/25/23 07/08/23 History capsule,extended release 24 hr famotidine 20 mg tablet 20 mg PO BEDTIME PRN heartburn 04/25/23 07/08/23 History insulin glargine 100 unit/mL (3 35 unit subcut BEDTIME 04/25/23 07/08/23 History mL) subcutaneous pen (Lantus Solostar U-100 Insulin) levothyroxine 112 mcg tablet 112 mcg PO DAILY 04/25/23 07/08/23 History lisinopril 20 mg tablet 20 mg PO DAILY 04/25/23 07/08/23 History metoprolol tartrate 100 mg tablet 150 mg PO BID 04/25/23 07/08/23 History omega 8-icn-vsb-fish oil 1,200 mg 1 cap PO DAILY 04/25/23 07/08/23 History (144 mg-216 mg) capsule (Fish Oil) oxycodone-acetaminophen 5 mg-325 1 tab PO BID PRN pain 04/25/23 07/08/23 History mg tablet rivaroxaban 20 mg tablet (Xarelto) 20 mg PO QPM 04/25/23 07/08/23 History selenium 200 mcg capsule 200 mcg PO DAILY 04/25/23 07/08/23 History dapagliflozin propanediol 10 mg 10 mg PO DAILY 07/08/23 07/08/23 History tablet (Farxiga) insulin aspar prot-insulin aspart 35 unit subcut DAILY 07/08/23 07/08/23 History 100 unit/mL (70-30) subcutaneous pen (Novolog Mix 70-30FlexPen U-100) spironolactone 25 mg tablet 25 mg PO DAILY 07/08/23 07/08/23 History (Aldactone) sucralfate 1 gram tablet (Carafate) 1 g PO BID 07/08/23 07/08/23 History furosemide 40 mg tablet 40 mg PO DAILY 30 days #30 tabs 07/10/23 07/08/23 Rx Allergies Allergy/AdvReac Type Severity Reaction Status Date / Time Sulfa (Sulfonamide Allergy Rash Verified 04/25/23 17:16 Antibiotics) shelfish Allergy Unknown Uncoded 04/25/23 17:16 Exam Constitutional Vital Signs, click to edit/add: Last Vital Signs Temp 97.8 F 07/09/23 12:00 Pulse 51 L 07/09/23 13:00 Resp 16 07/09/23 12:00 BP 152/59 H 07/09/23 12:00 Pulse Ox 94 L 07/09/23 12:00 O2 Del Method Room Air 07/09/23 12:00 O2 Flow Rate 6 07/08/23 05:04 FiO2 40 07/08/23 05:31 Documenting provider has reviewed patient's vital signs: yes Common normals: no apparent distress, oriented x3 and alert General appearance: cooperative and comfortable Orientation/consciousness: Yes awake, Yes oriented to person, Yes oriented to place and Yes oriented to time Respiratory Common normals: normal respiratory effort Effort & inspection: able to speak in complete sentences Auscultation: clear to auscultation bilaterally Cardio Common normals: no JVD, regular rate and regular rhythm Peripheral pulses: pulses 2+ throughout Extremity General: edema (mild bilat le edema) Results Labs and Meds Lab results: Cardiac Enzymes 07/09/23 Range/Units 04:45 AST 11 L (15-37) U/L CBC 07/09/23 Range/Units 04:45 WBC 12.7 H (4.0-11.0) 10^3/uL RBC 4.00 L (4.20-5.40) 10^6/uL Hgb 11.8 L (12.0-16.0) g/dL Hct 36.5 (36.0-48.0) % Plt Count 200 (150-450) 10^3/uL Neut # (Auto) 11.2 H (1.4-6.5) 10^3/uL Lymph # (Auto) 0.8 L (1.2-3.8) 10^3/uL [place] # (Auto) 0.6 (0.3-0.8) 10^3/uL Eos # (Auto) 0.0 (0.0-0.7) 10^3/uL Baso # (Auto) 0.0 (0.0-0.1) 10^3/uL Comprehensive Metabolic Panel 07/09/23 Range/Units 04:45 Sodium 136 (136-145) mmol/L Potassium 4.2 (3.5-5.1) mmol/L Chloride 103 (98-107) mmol/L Carbon Dioxide 22.2 (21.0-32.0) mmol/L BUN 42.0 H (7.0-18.0) mg/dL Creatinine 1.38 H (0.55-1.02) mg/dL Glucose 303 H (74-106) mg/dL Calcium 8.7 (8.5-10.1) mg/dL AST 11 L (15-37) U/L ALT 15 (14-59) U/L Alkaline Phosphatase 75 (46-116) U/L Total Protein 7.3 (6.4-8.2) g/dL Albumin 3.2 L (3.4-5.0) g/dL Intake and Output 07/08/23 07/09/23 07/09/23 23:59 07:59 15:59 Intake Total 250 / 850 600 / 850 480 / 480 Output Total 2150 / 3825 675 / 3825 850 / 850 Balance -1900 / -2975 -75 / -2975 -370 / -370 Intake: Oral 250 / 850 600 / 850 480 / 480 Output: Urine 1200 / 2200 850 / 850 Urine Amount (Catheter) 950 / 1625 675 / 1625 Urethral 950 / 1625 675 / 1625 Other: Weight 119.5 kg 119.1 kg Patient Weight 07/10/23 07:59 Weight 119.1 kg Imaging and Cardiology Echo: pending ECG results: report reviewed Assessment and Plan Assessment and Plan (1) CHF (congestive heart failure): Assessment and Plan: NYHA II-III Has history of chronic diastolic heart failure Continue GDMT Farxiga 10 mg daily, lisinopril 20mg, Toprol tartrate 150 bid, Xarelto, Aldactone 25 mg, continue Lasix 20 mg IV twice daily, by tomorrow okay to transition to oral Lasix either 20 mg tablet twice daily or 40 mg daily. It is unclear what dose she was on outpatient and patient is unsure. She likely had issues with compliance regarding diuretic. -Follow-up in 1 week with BMP in clinic -She is pending her echo results on this admission -Echo 01/01/2023 shows normal LVEF 70 to 75%, mild to moderate concentric LVH, normal RV size and function, no significant valvular abnormalities Qualifiers: Heart failure chronicity: acute on chronic Heart failure type: unspecified Qualified Code(s): I50.9 - Heart failure, unspecified (2) Atrial fibrillation: Assessment and Plan: She has been in sinus rhythm -[id number] at least 4 for x2 age, HFpEF, gender -Continue Xarelto 20 mg daily, there is outpatient discussion regarding Watchman (3) Edema due to hypoalbuminemia: (4) Diabetes mellitus: (5) Hypertension: Assessment and Plan: Stable, continue medication. Once she is euvolemic can consider increasing lisinopril (6) Obesity: (7) Breast cancer: (8) Lymph edema: (9) Hypothyroidism (acquired): Plan Continue diuresis for goal 2 L urine output per day -Limit sodium intake to 2 g/day, fluid intake 1800 mL/day -follow up in clinic in 1 week with BMP I have reviewed and agree with the plan stated above. Yfn Sutherland MD
[2023-07-09 16:37] LABS: Glucometer 277 mg/dL (74-106)
[2023-07-09] MEDS: RIVAROXABAN 10 MG TABLET 20 MG PO (18:03)
[2023-07-09 21:38] LABS: Glucometer 259 mg/dL (74-106)
[2023-07-10] VITALS (56 sets, daily range): BP systolic 137–171; BP diastolic 61–79; PULSE 53–67; RESP 18–22; TEMP 36.6–37; O2SAT 94–96
[2023-07-10] MEDS: FUROSEMIDE 20 MG/2 ML VIAL IVP (04:38)
[2023-07-10 05:24] LABS: Basophils Absolute Auto 0.1 10^3/uL (0.0-0.1); Basophils Percent Auto 0.5 % (0.2-2.0); Eosinophils Absolute Auto 0.1 10^3/uL (0.0-0.7); Eosinophils Percent Auto 0.4 % (0.9-7.0); Hematocrit 39.9 % (36.0-48.0); Hemoglobin 13.1 g/dL (12.0-16.0); Immature Granulocytes Abs Auto 0.02 10^3/uL (0.00-0.03); Immature Granulocytes Pct Auto 0.2 % (0.0-0.5); Lymphocytes Absolute Auto 2.2 10^3/uL (1.2-3.8); Lymphocytes Percent Auto 18.9 % (20.5-60.0); Mean Corpuscular HGB Conc 32.8 g/dL (29.9-35.2); Mean Corpuscular Hemoglobin 29.7 pg (26.7-34.0); Mean Corpuscular Volume 90.5 fL (81.0-99.0); Mean Platelet Volume 10.9 fL (9.5-13.5); Monocytes Percent Auto 8.2 % (1.7-12.0); Neutrophils Absolute Auto 8.5 10^3/uL (1.4-6.5); Neutrophils Percent Auto 71.8 % (43.0-75.0); Platelet Count 225 10^3/uL (150-450); Red Blood Count 4.41 10^6/uL (4.20-5.40); Red Cell Distribution Width 13.6 % (11.0-15.0); White Blood Count 11.8 10^3/uL (4.0-11.0)
[2023-07-10] MEDS: LEVOTHYROXINE SODIUM 112 MCG TABLET PO (05:39)
[2023-07-10 05:50] LABS: Alanine Aminotransferase 25 U/L (14-59); Albumin Globulin Ratio 0.7; Albumin Level 3.4 g/dL (3.4-5.0); Alkaline Phosphatase 79 U/L (46-116); Anion Gap 14.2; Aspartate Amino Transferase 19 U/L (15-37); BUN Creatinine Ratio 31.9; Bilirubin Total 0.6 mg/dL (0.2-1.0); Calcium 9.1 mg/dL (8.5-10.1); Carbon Dioxide 26.7 mmol/L (21.0-32.0); Chloride 100 mmol/L (98-107); Estimated GFR (African America 37 (>=60); Estimated GFR (Non-African Ame 31 (>=60); Globulin 4.6 g/dL; Glucose 264 mg/dL (74-106); Potassium 3.9 mmol/L (3.5-5.1); Sodium 137 mmol/L (136-145)
[2023-07-10 07:26] LABS: Glucometer 278 mg/dL (74-106)
[2023-07-10] MEDS: METOPROLOL TARTRATE 100 MG TABLET 150 MG PO (08:17)
[2023-07-10] MEDS: SPIRONOLACTONE 25 MG TABLET PO (08:17)
[2023-07-10] MEDS: ASPIRIN 81 MG TAB.CHEW PO (08:18)
[2023-07-10] MEDS: METRONIDAZOLE 250 MG TABLET 500 MG PO (08:18)
[2023-07-10] MEDS: ATORVASTATIN CALCIUM 20 MG TABLET PO (08:19)
[2023-07-10] MEDS: LISINOPRIL 20 MG TABLET PO (08:19)
[2023-07-10] MEDS: CANAGLIFLOZIN 100 MG TABLET 300 MG PO (08:19)
[2023-07-10] MEDS: DILTIAZEM HCL 120 MG CAP.ER.24H PO (08:19)
[2023-07-10] MEDS: SUCRALFATE 1 GM TABLET PO (08:19)
[2023-07-10] MEDS: FAMOTIDINE 20 MG TABLET PO (08:19)
[2023-07-10] MEDS: INSULIN ASPART 300 UNIT/3 ML PEN SUBQ (08:20)
--- NOTE | 2023-07-10 10:59 | P.DS_ITS ---
DS: Providers Provider Date of admission: 07/08/23 03:24 Primary care physician: Theodora Cuevas MD Admitting clinician: Bradford Olivas Consults: 07/08/23 06:35 Consult to Cardiology Routine Consulting Provider: RICA MEDRANO Reason for consultation: acute decompensated CHF Has provider been notified: No 07/08/23 10:10 Occupational Therapy Eval and Treat Routine Reason for consultation: weakness Has provider been notified: No Physical Therapy Eval and Treat Routine Reason for consultation: weakness Has provider been notified: No Attending physician on discharge: Martine Ledesma DS: Diagnosis Discharge Diagnosis (1) CHF (congestive heart failure): Qualifiers: Heart failure chronicity: acute on chronic Heart failure type: unspecified Qualified Code(s): I50.9 - Heart failure, unspecified (2) Atrial fibrillation: (3) Edema due to hypoalbuminemia: (4) Diabetes mellitus: (5) Hypertension: (6) Obesity: (7) Breast cancer: (8) Lymph edema: (9) Hypothyroidism (acquired): DS: Summary Hospital Course Hospital Course: patient is a 77-year-old female with past medical history of type 2 diabetes insulin-dependent, atrial fibrillation on chronic anticoagulation,hyperlipidemia, GERD, hypothyroidism, hypertension who presented to the Emergency Room with shortness of breath that has been worsening over the last week. She also notes bilateral lower extremity edema on the top of ankles and feet. She states that she has been trying to use her walker and walk several laps in her house and yesterday developed some shortness of breath she reported that this gets worse if she is laying flat so she is not able to sleep well the last few nights. She woke her up with the inability to breathe so was taken to the Emergency Room for further evaluation. She was admitted to the hospital for acute decompensated heart failure, some pulmonary edema noted on chest x-ray and an elevated proBNP. She says that she's been watching her sodium intake but has noticed an increased weight gain of 10-20 pounds. She denies any underlying lung issues and she has not ever smoked. She sees a principal associate, her primary care physician is Dr. Cuevas, and she also sees [facility] cardiology. she reports she has been compliant with medications. She is down >2.2L of fluid daily. She overall feels much improved today. Respiratory symptoms have improved, less pulmonary edema on repeat Chest X-ray, electrolytes maintained on the lasix 40mg daily, will be discharged home with this. No other changes to home meds. Cardiology following, has follow up appt with them in 1 week for recheck bmp and to review echo results. Time Spent with Patient Time attestation: Total time spent providing and/or coordinating discharge services: Time spent: greater than 30 minutes Exam Narrative Exam Narrative: General: Patient is alert, and oriented to person, place and time with normal affect, proper hygiene, morbid obesity Skin: no visible rashes, or ulcers Head: atraumatic, acephalic Heart: Normal rate and rhythm, no murmurs/rubs/gallops Lungs: no audible wheezes, crackles and normal breath sounds all lung morley Abdomen: Normal audible bowel sounds, no distension, No palpable masses, no organomegaly, no rebound/guarding/ or rigidity Musculoskeletal: muscle atrophy noted, ROM is limited due to being in hospital bed, no swelling bilateral lower extremities, lymphedema noted Vascular: Normal carotid, radial, femoral, posterior tibial, and dorsalis pedis pulses Lymph: no supraclavicular, axillary, or anterior/posterior cervical adenopathy Neuro: CN II-X grossly intact, normal sensation upper and lower extremities Constitutional Vital Signs, click to edit/add: Last Vital Signs Temp 97.8 F 07/10/23 07:54 Pulse 53 L 07/10/23 10:00 Resp 22 07/10/23 04:27 BP 164/70 H 07/10/23 07:23 Pulse Ox 96 07/10/23 04:27 O2 Del Method Room Air 07/10/23 04:27 O2 Flow Rate 6 07/08/23 05:04 FiO2 40 07/08/23 05:31 DS: Data Data Completed and Pending Labs on day of discharge: Labs from last 24 hours 07/10/23 07/10/23 07/09/23 07:24 05:00 21:35 WBC 11.8 H RBC 4.41 Hgb 13.1 Hct 39.9 MCV 90.5 MCH 29.7 MCHC 32.8 RDW 13.6 Plt Count 225 MPV 10.9 Neut % (Auto) 71.8 Lymph % (Auto) 18.9 L Meade % (Auto) 8.2 Eos % (Auto) 0.4 L Baso % (Auto) 0.5 Neut # (Auto) 8.5 H Lymph # (Auto) 2.2 [place] # (Auto) 1.0 H Eos # (Auto) 0.1 Baso # (Auto) 0.1 Abs Immat Gran (auto) 0.02 Imm/Tot Granulo (auto) 0.2 Sodium 137 Potassium 3.9 Chloride 100 Carbon Dioxide 26.7 Anion Gap 14.2 BUN 52.0 H Creatinine 1.63 H Est GFR ( Amer) 37 L Est GFR (Non-Af Amer) 31 L BUN/Creatinine Ratio 31.9 Glucose 264 H Calcium 9.1 Total Bilirubin 0.6 AST 19 ALT 25 Alkaline Phosphatase 79 NT-Pro-B Natriuret Pep 2714.0 H* Total Protein 8.0 Albumin 3.4 Globulin 4.6 Albumin/Globulin Ratio 0.7 POC Glucose 278 H 259 H 07/09/23 07/09/23 16:27 11:30 WBC RBC Hgb Hct MCV MCH MCHC RDW Plt Count MPV Neut % (Auto) Lymph % (Auto) [place] % (Auto) Eos % (Auto) Baso % (Auto) Neut # (Auto) Lymph # (Auto) [place] # (Auto) Eos # (Auto) Baso # (Auto) Abs Immat Gran (auto) Imm/Tot Granulo (auto) Sodium Potassium Chloride Carbon Dioxide Anion Gap BUN Creatinine Est GFR ( Amer) Est GFR (Non-Af Amer) BUN/Creatinine Ratio Glucose Calcium Total Bilirubin AST ALT Alkaline Phosphatase NT-Pro-B Natriuret Pep Total Protein Albumin Globulin Albumin/Globulin Ratio POC Glucose 277 H 263 H Discharge Plan Discharge Disposition: Home, Self-Care Discharge Medications: Continued alprazolam 0.25 mg tablet 0.25 mg PO TID PRN (Reason: anxiety) atorvastatin 20 mg tablet 20 mg PO DAILY cholecalciferol (vitamin D3) 125 mcg (5,000 unit) capsule 5,000 unit PO DAILY diltiazem HCl 120 mg capsule,extended release 24hr 120 mg PO Q24H famotidine 20 mg tablet 20 mg PO BEDTIME PRN (Reason: heartburn) insulin glargine [Lantus Solostar U-100 Insulin] 100 unit/mL (3 mL) insulin pen 35 unit SUBCUT BEDTIME levothyroxine 112 mcg tablet 112 mcg PO DAILY lisinopril 20 mg tablet 20 mg PO DAILY metoprolol tartrate 100 mg tablet 150 mg PO BID oxycodone-acetaminophen 5-325 mg tablet 1 tab PO BID PRN (Reason: pain) Patient Comments: X 30 DAYS selenium 200 mcg capsule 200 mcg PO DAILY Xarelto 20 mg tablet 20 mg PO QPM Rx Instructions: must administer with evening meal omega 2-ywr-yis-fish oil [Fish Oil] 1,200 (144-216) mg capsule 1 cap PO DAILY Rx Instructions: with food biotin 5 mg capsule 5 mg PO DAILY Farxiga 10 mg tablet 10 mg PO DAILY Patient Comments: new med not started yet insulin asp prt-insulin aspart [Novolog Mix 70-30FlexPen U-100] 100 unit/mL (70-30) insulin pen 35 unit subcut DAILY Rx Instructions: USE DIRECTED PER SLIDING SCALE- MAX 35 UNITS DAILY spironolactone [Aldactone] 25 mg tablet 25 mg PO DAILY sucralfate [Carafate] 1 gram tablet 1 g PO BID furosemide 40 mg tablet 40 mg PO DAILY 30 Days Qty: 30 0RF Activity: ambulate only with your walker Diet: other Diet Detail: 1800mL fluid restriction, low sodium (1Gram) diet daily Patient Instructions: Heart Failure (DC) Forms: Portal Instructions Follow Up Appointments: [facility] Cardiology follow up appointment Sunday at 9:40 at the [facility], Get labs drawn Jul 20- call central scheduling for time. follow up Echo results with them as well Discharge location: home
--- NOTE | 2023-07-10 11:15 | CM.NOTE ---
Rounds made with micaela Herrera for discharge to home today.
--- NOTE | 2023-07-10 14:14 | SWNOTE1 ---
SW stopped in before pt was discharged to see if they have changed minds and want HH, at this time pt still refusing.
[2023-07-10 15:08] LABS: Albumin 3.4 g/dL (2.9-4.4); Alpha-1-Globulin 0.3 g/dL (0.0-0.4); Alpha-2-Globulin 1.2 g/dL (0.4-1.0); Gamma Globulin 1.3 g/dL (0.4-1.8); Protein, Total 7.5 g/dL (6.0-8.5)
--- NOTE | 2023-07-11 10:29 | CM.DCFOLLOWU ---
Person spoke with: Patient How are you feeling? still really weak but doing well How is your pain? No pain. Did you understand your discharge instructions? Yes. Do you have any questions about your discharge instructions? No. Were you given any prescriptions at discharge? n/a Were you able to get your prescriptions filled? n/a Do you understand how to take your medications as ordered? Yes. Do you have any questions about your follow up appointment and do you plan to keep your follow up appointment? Patient voiced she plans on keeping the following appointments:*[facility] Cardiology follow up appointment Sunday at 9:40 at the [facility], Get labs drawn Jul 20- call central scheduling for time. follow up Echo results with them as well. *Dr Cuevas follow up Jul 17 @10:30. Re-reviewed with the patient her follow up appointments, and her lab work that needs done on Jul.20 and that she is to call and schedule her lab work. Pt. voiced understanding. Is there anything else that you would like to discuss? Also reviewed the patient's 1800ml fluid restriction and informed her it is approximately 3 1/2 bottles per day (total fluid and not just water, including jello, etc.) Pt. voiced understanding. Questions/Comments/Concerns/Other: Pt. was very appreciative of her follow up call and voiced how much she liked Dr. Ledesma.
[2023-07-11 16:10] LABS: Albumin, U 69.1 % (.); Alpha-1-Globulin, U 2.1 % (.); Alpha-2-Globulin, U 5.3 % (.); Beta Globulin, U 12.4 % (.); Gamma Globulin, U 11.1 % (.); M-Spike, % Not Observed % (Not Observed)
== END 2023-07-10 11:19 | disposition home or self-care (01) | DRG 291 ==
LOC: ER 02:57 → ICU 03:32
PROVIDERS: Admitting Provider Family Medicine; Emergency Provider Internal Medicine; PCP Family Medicine; Visit Provider Internal Medicine
DX: I11.0 Hypertensive heart disease with heart failure (principal); I50.33 Acute on chronic diastolic (congestive) heart failure; Z68.41 Body mass index [BMI] 40.0-44.9, adult; I48.91 Unspecified atrial fibrillation; E88.09 Other disorders of plasma-protein metabolism, not elsewhere classified; E11.65 Type 2 diabetes mellitus with hyperglycemia; E66.9 Obesity, unspecified; E03.9 Hypothyroidism, unspecified; I89.0 Lymphedema, not elsewhere classified; C50.919 Malignant neoplasm of unspecified site of unspecified female breast; E78.5 Hyperlipidemia, unspecified; R60.0 Localized edema; K21.9 Gastro-esophageal reflux disease without esophagitis; D72.829 Elevated white blood cell count, unspecified; T38.0X5A Adverse effect of glucocorticoids and synthetic analogues, initial encounter; Z79.01 Long term (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 anticoagulants; Z79.4 Long term (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 insulin; Z79.899 Other long term (current) drug therapy; Z79.890 Hormone replacement therapy; Z88.2 Allergy status to sulfonamides; Z91.013 Allergy to seafood; Z83.3 Family history of diabetes mellitus; Z82.49 Family history of ischemic heart disease and other diseases of the circulatory system
CPT/HCPCS: 0202U; 36415; 51702; 71045; 80048; 80053; 80061; 81001; 82043; 82570; 82948; 83690; 83880; 84134; 84156; 84300; 84484; 85025; 87086; 93005; 93306; 94640; 94660; 94761; 96365; 96375; 96376; 97161; 97165; 99285; J2930; P9047; Q3014

== ENCOUNTER 2023-07-20 10:22 | Outpatient (OUT) | payer MEDICARE, SELFPAY ==
[2023-07-20 10:59] LABS: Anion Gap 9.9; BUN Creatinine Ratio 30.8; Calcium 8.4 mg/dL (8.5-10.1); Carbon Dioxide 26.6 mmol/L (21.0-32.0); Chloride 101 mmol/L (98-107); Estimated GFR (African America 47 (>=60); Estimated GFR (Non-African Ame 39 (>=60); Glucose 318 mg/dL (74-106); Potassium 4.5 mmol/L (3.5-5.1); Sodium 133 mmol/L (136-145)
== END 2023-07-20 10:23 | disposition home or self-care (01) ==
LOC: LAB 10:23
PROVIDERS: PCP Family Medicine; Visit Provider Nurse Practitioner
DX: I50.41 Acute combined systolic (congestive) and diastolic (congestive) heart failure (principal)
CPT/HCPCS: 36415; 80048

== ENCOUNTER 2023-09-07 10:47 | Outpatient (OUT) | payer MEDICARE, SELFPAY ==
--- NOTE | 2023-09-07 11:33 | XR_ITS ---
[address] [address] Patient Name: JOE CALL MRN: [id number] date: 1945 Sex: F Assigned Patient Location: LAB Current Patient Location: Accession/Order Number: [id number] Exam Date: 09/07/2023 11:40 Report Date: 09/09/2023 21:24 At the request of: SHANTEL STEVEN Procedure: XR lumbar spine 2-3V EXAM: XR lumbar spine 2-3V HISTORY: Lumbar Intervertebral Disc Degeneration M51.36 COMPARISON: None. TECHNIQUE: 3 views lumbar spine FINDINGS: Posterior fixation at L4-5 without hardware complication. Grade 1 anterolisthesis at L5-S1. Vertebral body heights are preserved. Severe degenerative disc disease most notable at L2-3 and L3-4 with diffuse endplate sclerosis noted. Calcific atherosclerosis of the abdominal aorta. Chain suture projects over the left pelvis. Surgical clips project over the right upper quadrant. XR/XR lumbar spine 2-3V IMPRESSION: Posterior fixation at L4-5 without hardware complication. Grade 1 anterolisthesis at L5-S1. Multilevel degenerative disc disease most severe at L2-3 and L3-4. Electronically authenticated by: DENVER MARIANO Date: 09/09/2023 21:24
[2023-09-07 12:11] LABS: Estimated Average Glucose 286 mg/dL; Glycohemoglobin A1C 11.6 % (4.5-6.2)
[2023-09-07 12:22] LABS: Alanine Aminotransferase 17 U/L (14-59); Albumin Globulin Ratio 0.6; Albumin Level 3.1 g/dL (3.4-5.0); Alkaline Phosphatase 89 U/L (46-116); Anion Gap 13.9; Aspartate Amino Transferase 9 U/L (15-37); BUN Creatinine Ratio 31.3; Bilirubin Total 0.4 mg/dL (0.2-1.0); Carbon Dioxide 23.3 mmol/L (21.0-32.0); Chloride 96 mmol/L (98-107); Estimated GFR (African America 30 (>=60); Estimated GFR (Non-African Ame 24 (>=60); Potassium 5.2 mmol/L (3.5-5.1); Sodium 128 mmol/L (136-145); Total Protein 8.1 g/dL (6.4-8.2)
[2023-09-07 12:45] LABS: Glucose 584 mg/dL (74-106)
== END 2023-09-07 10:48 | disposition home or self-care (01) ==
PROVIDERS: PCP Family Medicine; Visit Provider Family Medicine
DX: E11.65 Type 2 diabetes mellitus with hyperglycemia (principal); N39.3 Stress incontinence (female) (male); M51.36 Other intervertebral disc degeneration, lumbar region
CPT/HCPCS: 36415; 72100; 80053; 83036

== ENCOUNTER 2023-09-08 23:00 | Outpatient (REF) | payer MEDICARE, SELFPAY ==
[2023-09-11 11:43] LABS: Bilirubin Urine NEGATIVE (NEGATIVE); Blood Urine NEGATIVE (NEGATIVE); Clarity Urine SLIGHTLY CLOUDY (CLEAR); Color Urine YELLOW (YELLOW); Glucose Urine UA >=1000 mg/dL (NEGATIVE); Ketones Urine NEGATIVE (NEGATIVE); Leukocyte Esterase Urine NEGATIVE (NEGATIVE); Nitrite Urine NEGATIVE (NEGATIVE); Protein Urine 100 mg/dL (NEG/TRACE); Specific Gravity Urine 1.025 (1.005-1.025); Urobilinogen Urine 0.2 EU/dL (0.2-1.0)
== END 2023-09-08 23:01 | disposition home or self-care (01) ==
LOC: LAB 23:00
PROVIDERS: PCP Family Medicine; Visit Provider Family Medicine
DX: E11.65 Type 2 diabetes mellitus with hyperglycemia (principal); N39.3 Stress incontinence (female) (male)
CPT/HCPCS: 81003; 87086

== ENCOUNTER 2024-02-29 11:18 | Outpatient (OUT) | payer MEDICARE, SELFPAY ==
--- NOTE | 2024-02-29 | XR_ITS ---
The [address] [address] Patient Name: JOE CALL MRN: [id number] date: 1945 Sex: F Assigned Patient Location: Current Patient Location: Accession/Order Number: [id number] Exam Date: 02/29/2024 11:28 Report Date: 03/02/2024 05:07 At the request of: DEN GLEASON Procedure: XR lumbar spine min 4V EXAMINATION: XR lumbar spine min 4V HISTORY: LUMBAR SPINE PAIN COMPARISON: XR lumbar spine 09/07/2023 FINDINGS: BONES: Mechanical fusion of L4-L5 via bilateral pedicle screws and rods; no appreciable hardware fracture or loosening. No bone fracture or lesion. Mild grade 1 retrolisthesis of L3 on 4; no appreciable change in alignment during flexion and extension. Multilevel mild degenerative facet arthropathy. DISC SPACES: Marked narrowing L2-L3, L3 on 4. Intervertebral spacer at L4-L5. PARASPINOUS: Negative. No paraspinous abnormality is seen. OTHER: Negative. XR/XR lumbar spine min 4V IMPRESSION: 1. Grossly stable surgical changes and degenerative changes compared to prior study. Electronically authenticated by: SOFIA JOHN Date: 03/02/2024 05:07
== END 2024-02-29 11:19 | disposition home or self-care (01) ==
LOC: EC 11:18
PROVIDERS: PCP Family Medicine; Visit Provider Orthopaedic Surgery Orthopaedic Surgery of the Spine
DX: M54.50 Low back pain, unspecified (principal)
CPT/HCPCS: 72110

== ENCOUNTER 2024-03-26 04:59 | Observation (INO) | payer MEDICARE, SELFPAY ==
[2024-03-26] VITALS (17 sets, daily range): BP systolic 131–208; BP diastolic 61–106; PULSE 52–72; TEMP 36.3–36.8; O2SAT 91–97; BMI 43.9; BMI 44.0
--- OUTSIDE RECORDS SUMMARY | 2024-03-26 05:06 | XMS_ITS | CCD ---
Author Organization [facility] Care Team Providers Care Renal Dialysis Rn Name Role Phone UNKNOWN, PROVIDER Unavailable Unavailable UNKNOWN, PROVIDER Unavailable Unavailable NIC BRYAN Unavailable Unavailable Akbar Cui II Unavailable SHANTEL STEVEN Primary Care Physician [phone] Shantel Steven Un[address] DR SHANTEL STEVEN Primary Care Unavailable YAMEL MCCRACKEN Consulting Unavailable YAMEL MCCRACKEN Admitting Unavailable YAMEL MCCRACKEN Attending Unavailable MISC, DR MENA Consulting Unavailable MISC, DR MENA Admitting Unavailable MISC, DR MENA Attending Unavailable TENISHA, DR SHANTEL lAvarado Primary Care Unavailable TENISHA, DR SHANTEL Alvarado Primary Care Unavailable TENISHA, DR SHANTEL Alvarado Admitting Unavailable TENISHA, DR SHANTEL Alvarado Attending Unavailable TENISHA, DR SHANTEL Alvarado Primary Care Unavailable HOY ., DR BUTLER Consulting Unavailable HOY ., DR BUTLER Admitting Unavailable HOY ., DR BUTLER Attending Unavailable GRECHNY ., ALEJANDRO HALEY Consulting Unavailabl e KAZ, JACOB Consulting Unavailable BIN ROJAS Consulting Unavailable DIAB ., SANAZ Admitting Unavailable DIAB ., SANAZ Attending Unavailable TENISHA, DR SHANTEL Alvarado Primary Care Unavailable DIAB ., SANAZ Consulting Unavailable TENISHA, DR SHANTEL Alvarado Primary Care Unavailable SAMANTHA, DR LINDA Cramer Consulting Unavailhira e SAMANTHA, DR LINDA Cramer Admitting Unavailabl e SAAMNTHA, DR LINDA Cramer Attending Unavailabl e ANALISA WHYTE Consulting Unavailable CESAR ., LD Admitting Unavailable CSEAR .LD Attending Unavailable TENISHA, DR SHANTEL Alvarado Primary Care Unavailable LEATHA ALVAREZ Consulting Unavailable RENETTA WALLACE Consulting Unavailable CESAR ., LD Consulting Unavailable YAMEL MCCRACKEN Admitting Unavailable YAMEL MCCRACKEN Attending Unavailable TENISHA, DR SHANTEL Alvarado Primary Care Unavailable TENISHA, DR SHANTEL Alvarado Primary Care Unavailable TENISHA, DR SHANTEL Alvarado Admitting Unavailable DR SHANTEL STEVEN Attending Unavailable DR SHANTEL STEVEN Consulting Unavailable Jaleesa Vanessa Unavailable ENZO BARNES Attending Unavailable RICA MEDRANO Attending Unavailable RICA MEDRANO Attending Unavailable ENZO BARNES Attending Unavailable MD Shantel Steven Primary Care Provider MD Shantel Steven Other Provider MD Eloina Hussein Attending Provider MD Eloina Hussein Referring Provider Shantel Steven Consulting Unavailable Shantel Steven Primary Care Unavailable Eloina Hussein Referring Unavailable Eloina Hussein Attending Unavailable Eloina Hussein Admitting Unavailable Allergies Allergy Classification Reported Allergen(s) Allergy Type Date of Onset Reaction(s) Facility (1 source) Iodine (And Iodine Containting Drugs) Drug allergy (disorder) 03-04-20 12 [facility] (20 sources) Shellfish; 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: [Shellfish] Food allergy (disorder) 03-04-20 12 rash, Eruption of skin (disorder) [facility] (6 sources) Sulfonamides (Antibiotic); 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: [SULFA (SULFONAMIDE ANTIBIOTICS)] Drug allergy (disorder) 03-04-20 12 Rash [facility] (20 sources) Sulfacetamide Drug Allergy 02-15-20 24 diarrhea [facility] (13 sources) Contrast media; 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: [contrast media (iodine-based)] Drug allergy Unknown (qualifier value) [facility] [place] (2 sources) Sulfonamides (Antibiotic); 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: [sulfa drugs] Drug allergy Diarrhea (finding) [facility] (2 sources) Glucosamine Drug Allergy [facility] (2 sources) Iodine (And Iodine Containting Drugs) Drug allergy (disorder) 08-09-20 17 [facility] (11 sources) Contrast media Propensity to adverse reactions 11-18-[address] [facility] [employer] Other (12 sources) Iodine; 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: [IODINE] Drug Allergy 10-30-20 14 Unknown [facility] (11 sources) Substance with sulfonamide structure and antibacterial mechanism of action (substance) Drug allergy Unknown [employer] Other (11 sources) Dyes Propensity to adverse reactions Comment:CT Dyes,Dyes,IVP Dyes [facility] Other (4 sources) Shellfish; 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: [SHELLFISH DERIVED] Allergy to substance 10-30-20 14 [facility] (4 sources) Iodinated Contrast Media; 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: [IODINATED CONTRAST MEDIA] Allergy to substance 02-15-20 [facility] (1 source) Chocolate; 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: [CHOCOLATE FLAVOR] Propensity to adverse reactions to drug (disorder) 01-17-20 [facility] (1 source) Sulfacetamide Drug Allergy 02-15-20 [facility] (1 source) Sulfonamides (Antibiotic) Drug allergy (disorder) 02-15-20 [facility] Medications Current Medications Medication Drug Class(es) Dates Sig (Normalized) Sig (Original) 8 Hour Arthritis Pain Reliever (14 sources) acetaminophen 325 mg / oxyCODONE hydrochloride 5 mg oral tablet (20 sources) Opioid Agonist Start: 01-04-2024 End: 03-03-2024 take 1 tablet by mouth twice daily Oxycodone-Acetami nophen Active 1 TAB PO Twice daily 60 30 March 03, 2024 Start: 11-19-2023 take 1 tablet by joesph th twice daily as needed oxyCODONE-Acetaminophen 5-325 MG 1 table t Orally TWICE A DAY NEEDED for 30 days Nov, Active Start: 10-22-2023 take 1 tablet by joesph th twice daily as needed oxyCODONE-Acetaminophen 5-325 MG 1 table t Orally TWICE A DAY NEEDED for 30 days Oct, Active Start: 10-22-2023 take 1 tablet by joesph th once daily as needed oxyCODONE-Acetaminophen 5-325 MG 1 table t Orally daily prn for 30 days Oct, Active Start: 08-23-2023 take 1 tablet by joesph th twice daily oxyCODONE-Acetaminophen 5-325 MG 1 table t Orally two times daily Aug, Active Start: 07-23-2023 take 1 tablet by joesph th twice daily oxyCODONE-Acetaminophen 5-325 MG 1 table t Orally two times daily for 30 days Jul, Active Start: 07-17-2023 take 1 tablet by joesph th twice daily oxyCODONE-Acetaminophen 5-325 MG 1 table t Orally two times daily for 30 days Jul, Active Start: 05-22-2023 Start: 04-03-2023 take 1 tablet by joesph th twice daily oxyCODONE-Acetaminophen 5-325 MG 1 table t Orally two times daily for 30 days March, Active Start: 02-02-2023 take 1 tablet by joesph th twice daily oxyCODONE-Acetaminophen 5-325 MG 1 table t Orally two times daily for 30 days Jan, Active Start: 11-30-2022 take 1 tablet by joesph th twice daily oxyCODONE-Acetaminophen 5-325 MG 1 table t Orally two times daily for 30 days Nov, Active Start: 07-27-2022 take 1 tablet by joesph twice daily acetaminophen-oxycodone 325 mg-2.5 mg or al tablet 1 tab(s), Oral, BID, Refill(s) 0 Start Date: 07/27/22 Status: Ordered Start: 06-12-2021 End: 06-19-2021 take 1 tablet by mouth twice daily Oxycodone-Acetaminophen Discontinued 1 T AB PO Twice daily June 12, 2021 12:00am June 19, 2021 3:13am [id number] 200 actuat albuterol 0.09 mg/actuat metered dose inhaler (7 sources) beta2-Adrenergic Agonist Start: 01-17-2024 take 1 puff(s) by inhalation every four hours Albuterol Sulfate Active 2 PUFF INHALATION Every 4 hours January 17, 2024 1:00am Start: 10-18-2023 take 2 puff(s) by in halation every four hours as needed Albuterol Sulfate HFA 108 (90 Base) MCG/ACT 2 puff Inhalation every 4 hrs prn Oct, Active ALPRAZolam 0.25 mg oral tablet (20 sources) Benzodiazepine Start: 01-30-2024 take 0.25 mg by mouth twice daily Alprazolam Active 0.25 MG PO Twice daily January 30, 2024 12:55pm Start: 01-17-2024 End: 01-30-2024 take 0.25 mg by mouth three times daily Alprazolam Discontinued 0.25 MG PO Three times daily January 17, 2024 1:00am January 30, 2024 12:56pm Start: 12-03-2023 ALPRAZolam 0.2 5 mg TAKE 1 TABLET BY MOUTH THREE TIMES DAILY NEEDED *MUST LAST 30 DAYS* for 30 Nov, Active Start: 10-02-2023 take 1 tablet by joesph th three times daily as needed ALPRAZolam 0.25 MG 1 tablet Orally three times daily, as needed for 30 days Sep, Active Start: 08-23-2023 take 1 tablet by joesph three times daily as needed ALPRAZolam 0.25 MG 1 tablet Orally three times daily, as needed for 30 days Aug, Active Start: 07-23-2023 take 1 tablet by joesph three times daily as needed ALPRAZolam 0.25 MG 1 tablet Orally three times daily, as needed for 30 days Jul, Active Start: 06-12-2023 take 1 tablet by joesph three times daily as needed ALPRAZolam 0.25 MG 1 tablet Orally three times daily, as needed for 30 days Jun, Active Start: 05-30-2023 Start: 05-22-2023 Start: 04-13-2023 take 1 tablet by joesph three times daily as needed ALPRAZolam 0.25 MG 1 tablet Orally three times daily, as needed for 30 days Apr, Active Start: 03-05-2023 take 1 tablet by joesph th three times daily as needed ALPRAZolam 0.25 MG 1 tablet Orally three times daily, as needed for 30 days Feb, Active Start: 11-27-2022 take 1 tablet by joesph th three times daily as needed ALPRAZolam 0.25 MG 1 tablet Orally three times daily, as needed for 30 days Nov, Active Start: 07-27-2022 take 1 tablet by joesph three times daily as needed for anxiety alprazolam 0.25 mg Tab 0.25 mg = 1 tab(s), Oral, TID, PRN as needed for anxiety, Refills(s) 0 Start Date: 07/27/22 Status: Ordered ascorbic acid 113 mg / coppe r gluconate 0.4 mg / docosahexaenoic acid 87.5 mg / eicosapentaenoic acid 163 mg / lutein 2.5 mg / tocopherol acetate 100 unt / zeaxanthin 0.5 mg / zinc oxide 17.4 mg oral capsule (20 sources) Vitamin C PreserVision ARE DS 2 - as directed Orally ONCE A DAY Active atorvastatin 20 mg oral tablet (20 sources) HMG-CoA Reductase Inhibitor Start: 03-07-2021 take 20 mg by mouth once daily Atorvastatin Active 20 MG PO Daily June 11, 2021 12:00am B-12 (1 source) Start: 03-07-2021 B-12 Refills(s ) 0 Start Date: 03/07/21 Status: Ordered biotin 5 mg oral capsule (6 sources) Start: 01-17-2024 take 5 mg by mouth once daily Biotin Active 5 MG PO Daily January 17, 2024 1:00am take 1 capsule by mo [facility] every twenty-four hours Biotin 5 MG 1 capsule Orally Once a day Active cholecalciferol 0.125 mg oral capsule (8 sources) Vitamin D Start: 01-17-2024 take 125 ug by mouth once daily Cholecalciferol (Vitamin D3) Active 125 MCG PO Daily January 17, 2024 1:00am take 1 capsule by mo uth every twenty-four hours Vitamin D3 125 MCG (5000 UT) 1 capsule Orally Once a day Active take 1 capsule by mo ut every twenty-four hours Vitamin D3 25 MCG (1000 UT) 1 capsule Orally Once a day Active cholestyramine resin 4000 mg powder for oral suspension (1 source) Bile Acid Sequestrant Start: 03-07-2021 Questran 4 g/9 g oral powder = 1 packet(s), Oral, Daily, # 30 EA, Refills(s) 11, Pharmacy: [id number], 165.1, cm, 03/07/21 13:49:00 EDT, Height/Length Dosing, 121.8, kg, 03/07/21 13:49:00 EDT, Weight Dosing Start Date: 03/07/21 Status: Ordered dapagliflozin 10 mg oral tablet (11 sources) Sodium-Glucose Cotransporter 2 Inhibitor Start: 01-29-2024 take 1 tablet by mouth once daily Dapagliflozin Propanediol (Farxiga) 10 mg tablet Active 10 MG PO Daily January 29, 2024 12:00am Start: 01-22-2024 End: 01-23-2024 take 1 tablet by mouth once daily Dapagliflozin Propanediol (Farxiga) 10 mg tablet Active 10 MG PO Daily January 23, 2024 2:42pm FARXIGA Active Dapagliflozin Pr opanediol 10 MG 1 tablet once a day Active Dilt-CD 120 mg (14 sources) take 1 capsule by mouth once daily 12 hr dilTIAZem hydrochloride 120 mg extended release oral capsule (20 sources) Calcium Channel Khadijah Start: 07-27-2022 take 1 capsule by mouth once daily diltiazem 120 mg oral capsule, extended release 120 mg = 1 cap(s), Oral, Daily, Refills(s) 0 Start Date: 07/27/22 Status: Ordered Start: 06-19-2021 take 120 mg by mouth once mayte y Diltiazem Hcl Active 120 MG PO Daily June 19, 2021 12:00am take 1 capsule by mo [facility] every twelve hours dilTIAZem HCl ER 120 MG 1 capsule Orally Twice a day Active famotidine 20 mg oral tablet (20 sources) Histamine-2 Receptor Antagonist Start: 01-17-2024 take 20 mg by mouth once daily at bedtime Famotidine Active 20 MG PO Daily at bedtime January 17, 2024 1:00am Start: 01-07-2023 take 1 tablet by joesph every twenty-four hours Famotidine 20 MG 1 tablet at bedtime as needed Orally Once a day for 30 days Dec, Active Fish Oils (20 sources) Start: 07-27-2022 Fish Oil Refil l(s) 0 Start Date: 07/27/22 Status: Ordered take 1 capsule by mouth once jagjit ly Fish Oil 1200 MG 1 capsule Orally Once a day Active take 1 capsule by mouth once jagjit ly Fish Oil 1000 MG 1 capsule Orally Once a day Active furosemide 40 mg oral tablet (20 sources) Loop Diuretic Start: 01-17-2024 take 1 tablet by mouth once daily Furosemide (Lasix) 40 mg tablet Active 40 MG PO Daily January 17, 2024 1:00am Start: 07-27-2022 take 1 tablet by joesph th once daily Lasix 20 mg Tab 20 mg = 1 tab(s), Oral, Daily, Refills(s) 0 Start Date: 07/27/22 Status: Ordered take 1 tablet by joesph every twenty-four hours Lasix 40 MG 1 tablet Orally Once a day Active Garlic (20 sources) Non-Standardized Food Allergenic Extract Start: 01-17-2024 take 100 mg by mouth once daily Garlic Active 100 MG PO Daily January 17, 2024 1:00am Garlic 10 MG as directed Orally ONCE A DAY Active insulin glargine 100 unt/ml injectable solution (20 sources) Insulin Analog Start: 01-17-2024 End: 03-13-2024 inject 35 [IU] by subcutaneous injection once daily in the evening Insulin Glargine (Lantus U-100 Insulin) 100 unit/mL solution Active 35 UNIT SUBCUT Every evening March 13, 2024 5:10pm Start: 06-12-2021 End: 01-17-2024 inject 40 [IU] by subcutaneous injection once daily in the evening Insulin Glargine (Lantus U-100 Insulin) 100 unit/mL solution Discontinued 40 UNIT SUBCUT Every evening June 12, 2021 12:00am January 17, 2024 5:19pm Lantus SoloStar 100 UNIT/ML as directed Subcutaneous 35 UNITS Active Lantus SoloStar 100 UNIT/ML as directed Subcutaneous 25units Active 3 ml insulin isophane, human 100 unt/ml pen injector (2 sources) Start: 01-24-2024 inject 14 [IU] by subcutaneous injection three times daily Insulin Nph Isoph U-100 Human (Novolin N Flexpen) 100 unit/mL (3 mL) insulin pen Active 1 UNIT SUBCUT Three times daily January 24, 2024 12:00am 150-199 mg/dl 3 unit 200-249 mg/dl 4 unit 250-299 mg/dl 7 unit 300-349 mg/dl 10 unit 350-399 mg/dl 12 unit greater than or = 400 mg/dl 14 unit ketoconazole 20 mg/ml topical cream (2 sources) Azole Antifungal Start: 02-15-2024 Ketoconazole Active 1 APPLIC TOPICAL Daily February 15, 2024 12:00am Lantus Solostar Pen (1 source) Start: 09-15-2022 inject 35 [IU] by subcutaneous injection once daily at bedtime Lanroni Savagear Pen 35 unit(s), SubCutaneous, Once a day (at bedtime), Refill(s) 0 Start Date: 07/27/22 Status: Ordered levothyroxine sodium 0.112 mg oral tablet (20 sources) l-Thyroxine Start: 06-11-2021 take 112 ug by mouth once daily Levothyroxine Active 112 MCG PO Daily June 11, 2021 12:00am Start: 03-07-2021 take 112 ug by mouth once daily levothyroxine 112 mcg, Oral, Daily, Refills(s) 0 Start Date: 03/07/21 Status: Ordered Levothyroxine So dium 112 MCG TAKE 1 TABLET EVERY DAY for 90 Active lisinopril 20 mg oral tablet (20 sources) Angiotensin Converting Enzyme Inhibitor Start: 03-07-2021 take 20 mg by mouth once daily Lisinopril Active 20 MG PO Daily June 11, 2021 12:00am Loperamide (14 sources) Opioid Agonist Metoprolol (20 sources) beta-Adrenergic Khadijah Start: 02-19-2024 Metoprolol Tartrate Active 0 .ROUTE .COMPLEX 270 February 19, 2024 2:51pm TAKE 1 AND 1/2 TABLETS TWICE DAILY Start: 02-19-2024 End: 02-19-2024 take 100 mg by mouth twice daily Metoprolol Tartrate Discontinued 100 MG PO Twice daily February 19, 2024 12:00am February 19, 2024 2:51pm Start: 07-27-2022 metoprolol tar trate 100 mg Tab 150 mg = 1.5 tab(s), Oral, BID, Refills(s) 0 Start Date: 07/27/22 Status: Ordered Start: 06-19-2021 End: 01-17-2024 take 100 mg by mouth once daily Metoprolol Tartrate Di scontinued 100 MG PO Daily June 19, 2021 12:00am January 17, 2024 5:18pm Metoprolol Tartr ate 100 MG 1 1/2 tablet with food Orally Twice a day Active take 1 tablet by joesph th every twenty-four hours metroNIDAZOLE 500 mg oral tablet (20 sources) Nitroimidazole Antimicrobial Start: 01-30-2024 take 1 tablet by mouth three times daily Metronidazole Active 0 .ROUTE .COMPLEX January 30, 2024 12:55pm TAKE 1 TABLET BY MOUTH THREE TIMES DAILY FOR 10 DAYS Start: 01-29-2024 End: 01-30-2024 take 500 mg by mouth three times daily Metronidazole Discontinued 500 MG PO Three times daily 10 09January 29, 2024 12:00am January 30, 2024 12:56pm Start: 07-23-2023 take 1 tablet by joesph th every eight hours metroNIDAZOLE 500 MG 1 tablet Orally Three times a day for 10 days Jul, Active Start: 03-07-2023 take 1 tablet by joesph th every eight hours nystatin 012175 unt/ml topical cream (18 sources) Polyene Antifungal Start: 01-17-2024 Nystatin Ac tive 1 APPLIC TOPICAL Twice daily January 17, 2024 1:00am Nystatin 011384 UNIT/GM 1 application Externally Twice a day for 10 days Active Nystatin 311102 UNIT/GM 1 application Externally Twice a day for 10 days Active [place] 5-Qxu-Vdx-Fish Oil (Fish Oil) 1,000 mg (120 mg-180 mg) capsule (2 sources) Start: 01-17-2024 take 1 capsule by mouth once daily [place] 8-Xwa-Orf-Fish Oil (Fish Oil) 1,000 mg (120 mg-180 mg) capsule Active 1 CAP PO Daily January 17, 2024 1:00am 24 hr oxybutynin chloride 10 mg extended release oral tablet (2 sources) Cholinergic Muscarinic Antagonist Start: 02-15-2024 take 10 mg by mouth once daily Oxybutynin Chloride Active 10 MG PO Daily February 15, 2024 12:00am pantoprazole 40 mg delayed release oral tablet (1 source) Proton Pump Inhibitor Start: 07-27-2022 take 1 tablet by mouth once daily Pantoprazole [address] Tab 40 mg = 1 tab(s), Oral, Daily, Refills(s) 0 Start Date: 07/27/22 Status: Ordered PreserVision AREDS (1 source) Start: 07-27-2022 PreserVision AREDS Refill(s) 0 Start Date: 07/27/22 Status: Ordered rivaroxaban 20 mg oral tablet (20 sources) Factor Xa Inhibitor Start: 06-12-2021 take 1 tablet by mouth once daily Rivaroxaban (Xarelto) 20 mg Tablet Active 20 MG PO Daily [place] 1st, 2021 12:00am take 0.5 tablet by mouth once da meliton Xarelto 10 MG 1/2 tablet Orally Once a day for 90 days Active Selenium 200 MCG (4 sources) take 1 tablet by mouth once daily Selenium 200 MCG 1 tablet Orally Once a day Active selenomethionine 0.2 mg oral tablet (2 sources) Start: take 200 ug by mouth once daily Selenomethionine Active 200 MCG PO Daily January 17, 2024 1:00am spironolactone 25 mg oral tablet (20 sources) Aldosterone Antagonist Start: take 25 mg by mouth once daily Spironolactone Active 25 MG PO Daily January 17, 2024 1:00am take 1 tablet by joesph th every twenty-four hours Spironolactone 25 MG 1 tablet Orally Onc e a day Active sucralfate 1000 mg oral tablet (13 sources) Aluminum Complex Start: 01-17-2024 take 1 g by mouth twice daily Sucralfate Active 1 GM PO Twice daily January 17, 2024 1:00am Start: 03-23-2023 take 1 tablet by joesph th every twelve hours take 1 tablet by joesph th every twelve hours Sucralfate 1 GM 1 tablet on an empty stomach Orally Twice a day Active True Metrix Blood Glucose Test - (5 sources) True Metrix Bloo d Glucose Test - TEST BLOOD SUGAR EVERY DAY for 90 Active vitamin b12 1 mg extended release oral tablet (1 source) Vitamin B12 take 1 tablet by joesph th every twenty-four hours Vitamin B12 1000 MCG 1 tablet Orally Once a day Active Vitamin B12 1000 MCG (20 sources) take 1 tablet by mouth once mayte y Vitamin B12 1000 MCG 1 tablet Orally Once a day Active Vitamin D (1 source) Start: 07-27-2022 Vitamin D Refi lls(s) 0 Start Date: 07/27/22 Status: Ordered Vitamin D3 25 MCG (1000 UT) (20 sources) take 1 capsule by mouth once jagjit ly Vitamin D3 25 MCG (1000 UT) 1 capsule Orally Once a day Active Vitamins A,C,U-Jvpi-Jgoebl (Preservision Areds) 4,296 mcg-226 mg-90 mg capsule (2 sources) Start: 01-17-2024 take 1 capsule by mouth twice daily Vitamins A,C,R-Pipp-Rbvyjj (Preservision Areds) 4,296 mcg-226 mg-90 mg capsule Active 1 CAP PO Twice daily January 17, 2024 1:00am Completed/Discontinued Medications Medication Drug Class(es) Dates Sig (Normalized) Sig (Original) amitriptyline hydrochloride 10 mg oral tablet (12 sources) Tricyclic Antidepressant take 1 tablet by mouth every twenty-four hours Amitriptyline HCl 10 MG 1 tablet at bedtime Orally Once a day Not-Taking amylase 951631 unt / lipase 40240 unt / protease 26034 unt delayed release oral capsule (3 sources) Start: 06-11-2021 End: 06-19-2021 Rllptm-Fgeqerlv-Kq ylase (Creon) 24,000-76,000 -120,000 unit capsule,delayed release(DR/EC) Discontinued 1 - 2 CAP PO 1-2 TIMES DAILY June 11, 2021 12:00am June 19, 2021 3:12am Start: 05-10-2021 Creon 24,000 u nits oral delayed release capsule See Instructions, take 3 caps with each meal and 2 caps with each snack., # 390 caplet(s), Refills(s) 0, Pharmacy: [id number], 165.1, cm, 04/18/21 13:02:00 EDT, Height/Length Dosing, 116.4, kg, 04/18/21 13:02:00 EDT, Weight Dosing Start Date: 05/10/21 Status: Ordered carvedilol 6.25 mg oral tablet (2 sources) alpha-Adrenergic Khadijah, beta-Adrenergic Khadijah Start: 06-12-2021 End: 01-17-2024 take 6.25 mg by mouth twice daily at mealtime Carvedilol Discontinued 6.25 MG PO Twice daily with meals 60 June 12, 2021 12:00am January 17, 2024 5:18pm cefdinir 300 mg oral capsule (2 sources) Cephalosporin Antibacterial Start: 06-12-2021 End: 01-17-2024 take 300 mg by mouth twice daily Cefdinir Discontinued 300 MG PO Twice daily 10 June 12, 2021 12:00am January 17, 2024 5:18pm fluconazole 100 mg oral tablet (2 sources) Azole Antifungal Start: 06-12-2021 End: 01-17-2024 take 100 mg by mouth once daily Fluconazole Discontinued 100 MG PO Daily 05 18June 12, 2021 12:00am January 17, 2024 5:18pm 3 ml insulin aspart protamine, human 70 unt/ml / insulin aspart, human 30 unt/ml pen injector (20 sources) Insulin Analog Start: 06-12-2021 End: 06-12-2021 Insulin Asp Prt-Insulin Aspart (Novolog Mix 70-30flexpen U-100) 100 unit/mL (70-30) Insulin Pen Discontinued 20 UNIT SUBCUT With breakfast and supper June 12, 2021 12:00am June 12, 2021 12:52pm NovoLOG 70/30 Fl exPen ReliOn (70-30) 100 UNIT/ML as directed Subcutaneous SLIDING SCALE MAX 35 UNITS DAILY Active inject 1 [IU] by sub cutaneous injection once NovoLOG Mix 70/30 FlexPen (70-30) 100 UNIT/ML as directed Subcutaneous 1 unit per sliding scale Active Insulin Aspart U-100 (Novolog Flexpen U-100 Insulin) 100 unit/mL (3 mL) Insulin Pen (2 sources) Start: 06-12-2021 End: 01-15-2024 inject 14 [IU] by subcutaneous injection three times daily Insulin Aspart U-100 (Novolog Flexpen U-100 Insulin) 100 unit/mL (3 mL) Insulin Pen Discontinued 1 UNIT SUBCUT Three times daily June 12, 2021 12:00am January 15, 2024 3:28pm 150-199 mg/dl 3 unit 200-249 mg/dl 4 unit 250-299 mg/dl 7 unit 300-349 mg/dl 10 unit 350-399 mg/dl 12 unit greater than or = 400 mg/dl 14 unit Insulin Aspart U-100 (Novolog Flexpen U-100 Insulin) 100 unit/mL (3 mL) insulin pen (4 sources) Start: 01-16-2024 End: 01-24-2024 inject 14 [IU] by subcutaneous injection three times daily Insulin Aspart U-100 (Novolog Flexpen U-100 Insulin) 100 unit/mL (3 mL) insulin pen Discontinued 1 UNIT SUBCUT Three times daily January 16, 2024 3:12pm January 24, 2024 1:50pm 150-199 mg/dl 3 unit 200-249 mg/dl 4 unit 250-299 mg/dl 7 unit 300-349 mg/dl 10 unit 350-399 mg/dl 12 unit greater than or = 400 mg/dl 14 unit Start: 01-15-2024 End: 01-16-2024 inject 1 [IU] by subcutaneous injection three times daily Insulin Aspart U-100 (Novolog Flexpen U-100 Insulin) 100 unit/mL (3 mL) insulin pen Discontinued 1 UNIT SUBCUT Three times daily January 15, 2024 3:26pm January 16, 2024 3:13pm ketorolac tromethamine 5 mg/ml ophthalmic solution (2 sources) Nonsteroidal Anti-inflammatory Drug, Cyclooxygenase Inhibitor Start: 06-11-2021 End: 06-12-2021 Ketorolac Discontinued DROPS SOLUTION/ DROPS June 11, 2021 12:00am June 12, 2021 3:16am meloxicam 15 mg oral tablet (12 sources) Nonsteroidal Anti-inflammatory Drug Start: 08-25-2021 take 1 tablet by mouth every twenty-four hours Mobic 15 MG 1 tablet Orally Once a day for 30 day(s) Aug, Not-Taking 24 hr venlafaxine 37.5 mg extended release oral capsule (2 sources) Serotonin and Norepinephrine Reuptake Inhibitor Start: 06-11-2021 End: 01-17-2024 take 37.5 mg by mouth once daily Venlafaxine Discontinued 37.5 MG PO Daily June 11, 2021 12:00am January 17, 2024 5:18pm Problems Active Problems Problem Classification Problem Date Documented Date Episodic/Chronic Acute and unspecified renal failure (1 source) Acute kidney failure, unspecified Episodic Anxiety disorders (2 sources)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 [facility] Comment on above: Performed By: #### P OCGLUC #### [facility] [address] [place] [address] Dr. Kasia Nath MCHC (RBC) [Mass/Vol] 33.4 g/dL Normal 29.9-35.[address] [facility] Comment on above: Performed By: #### P OCGLUC #### [facility] [address] [place] [address] Dr. Kasia Nath MCV (RBC) [Entitic vol] 88.0 fL Normal 81.0-99.[address] [facility] Comment on above: Performed By: #### P OCGLUC #### [facility] [address] [place] [address] Dr. Kasia aNth MONO # 0.7 103/ul Normal 0.3-0.[address] [facility] Comment on above: Performed By: #### P OCGLUC #### [facility] [address] [place] [address] Dr. Kasia Nath Monocytes/100 WBC (Bld) 9.3 % Normal 1.7-12.[address] [facility] Comment on above: Performed By: #### P OCGLUC #### [facility] [address] [address] [address] Kasia Nath NEUT # 5.1 103/ul Normal 1.4-6.[address] [facility] Comment on above: Performed By: #### P OCGLUC #### [facility] [address] [address] [address] Kasia Nath Neutrophils/100 WBC (Bld) 64.4 % Normal 43.0-75.[address] [facility] Comment on above: Performed By: #### P OCGLUC #### [facility] [address] [address] [address] Kasia Nath Platelet mean volume (Bld) [Entitic vol] 11.7 fL Normal 9.5-13.[address] [facility] Comment on above: Performed By: #### P OCGLUC #### [facility] [address] [address] [address] Kasia Nath PLT 175 103/ul Normal 150-450 [facility] Comment on above: Performed By: #### P OCGLUC #### [facility] [address] [place] [address] Dr. Kasia Nath RBC 4.08 106/ul Critically low 4.20-5.40 [facility] Comment on above: Performed By: #### P OCGLUC #### [facility] [address] [address] [address] Kasia Nath WBC 7.9 103/ul Normal 4.0-11.0 [facility] Comment on above: Performed By: #### P OCGLUC #### [facility] [address] [address] [address] Kasia Nath LIPASEon 02-14-2023 Lipase [Catalytic activity/Vol] 51.0 U/L Critically low 73.0-393.[address] [facility] Comment on above: Performed By: #### L IPA, CMP ####[facility] [address] [address]Dr. Kasia Nath PROF 14(COMP METB)on 023 Albumin [Mass/Vol] 2.8 g/dL Critically low 3.4-5.0 Th [facility] Comment on above: Performed By: #### L IPA, CMP ####[facility] [address] [id number]. Kasia Nath Albumin/Globulin [Mass ratio] 0.7 {ratio} Normal [facility] Comment on above: Performed By: #### L IPA, CMP ####[facility] [address] [address]Dr. Kasia Nath ALP [Catalytic activity/Vol] 90 U/L Normal 46-[address] [facility] Comment on above: Performed By: #### L IPA, CMP ####[facility] [address] [address]Dr. Kasia Nath ALT [Catalytic activity/Vol] 15 U/L Normal 14-[address] [facility] Comment on above: Performed By: #### L IPA, CMP ####[facility] [address] [address]Dr. Kasia Nath Anion gap [Moles/Vol] 15.6 mmol/L Normal [facility] Comment on above: Performed By: #### L IPA, CMP ####[facility] [address] [address]Dr. Kasia Nath AST [Catalytic activity/Vol] 9 U/L Critically low 15-[address] [facility] Comment on above: Performed By: #### L IPA, CMP ####[facility] [address] [address]Dr. Kasia Nath Bilirubin [Mass/Vol] 0.4 mg/dL Normal 0.2-1.[address] [facility] Comment on above: Performed By: #### L IPA, CMP ####[facility] [address] [address]Dr. Kasia Nath Calcium [Mass/Vol] 9.1 mg/dL Normal 8.5-10.1 [facility] Comment on above: Performed By: #### L IPA, CMP ####[facility] [address] [address]Dr. Kasia Nath Chloride [Moles/Vol] 104 mmol/L Normal 98-107 [facility] Comment on above: Performed By: #### L IPA, CMP ####[facility] [address] [place], [place] [address]Dr. Kasia Nath CO2 [Moles/Vol] 17.0 mmol/L Critically low 21.0-32.[address] [facility] Comment on above: Performed By: #### L IPA, CMP ####[facility] [address] [place], [place] [address]Dr. Kasia Nath Creatinine [Mass/Vol] 1.78 mg/dL Critically high 0.55-1.[address] [facility] Comment on above: Performed By: #### L IPA, CMP ####[facility] [address] [place], [place] [address]Dr. Fartuncristy Portillo EGFR-AF CANADIAN 34 mL/min/1.73m2 Critically low >=[address] [facility] Comment on above: Performed By: #### L IPA, CMP ####[facility] [address] [place], [place] [address]Dr. Kasia Nath EGFR-NON AF CANADIAN 28 mL/min/1.73m2 Critically low >=[address] [facility] Comment on above: Performed By: #### L IPA, CMP ####[facility] [address] [place], [place] [address]Dr. Fartuncristy Nath Globulin (S) [Mass/Vol] 4.3 g/dL Normal [facility] Comment on above: Performed By: #### L IPA, CMP ####[facility] On[address] [place], [place] [address]Dr. Fartuncristy Portillo Glucose [Mass/Vol] 248 mg/dL Critically high 74-[address] [facility] Comment on above: Performed By: #### L IPA, CMP ####[facility] [address] [place], [place] [address]Dr. Kasia Nath Potassium [Moles/Vol] 4.6 mmol/L Normal 3.5-5.[address] [facility] Comment on above: Performed By: #### L IPA, CMP ####[facility] [address] [place], [place] [address]Dr. Kasia Nath Protein [Mass/Vol] 7.1 g/dL Normal 6.4-8.2 [facility] Comment on above: Performed By: #### L IPA, CMP ####[facility] [address] [place], [place] [address]Dr. Kasia Portillo Sodium [Moles/Vol] 132 mmol/L Critically low 136-145 Th [facility] Comment on above: Performed By: #### L IPA, CMP ####[facility] [address] [place], [place] [address]Dr. Kasia Nath Urea nitrogen [Mass/Vol] 78.0 mg/dL Critically high 7.0-18.[address] [facility] Comment on above: Performed By: #### L IPA, CMP ####[facility] [address] [place], [place] [address]Dr. Fartuncristy Nath Urea nitrogen/Creatinine [Mass ratio] 43.8 mg/mg Normal [facility] Comment on above: Performed By: #### L IPA, CMP ####[facility] [address] [place], [place] [address]Dr. Kasia Portillo CBC AUTO DIFFon 02-13-2023 BASO # 0.0 103/ul Normal 0.0-0.[address] [facility] Comment on above: Performed By: #### C BC ####[facility] C[address] [place], [place] [address]Dr. Kasia Portillo Basophils/100 WBC (Bld) 0.5 % Normal 0.2-2.[address] [facility] Comment on above: Performed By: #### C BC ####[facility] [address] [place], [place] [address]Dr. Kasia Nath EO # 0.1 103/ul Normal 0.0-0.[address] [facility] Comment on above: Performed By: #### C BC ####[facility] [address] [place], [place] [address]Dr. Kasia Nath Eosinophils/100 WBC (Bld) 1.0 % Normal 0.9-7.[address] [facility] Comment on above: Performed By: #### C BC ####[facility] [address] [place], [place] [address]Dr. Kasia Nath Erythrocyte distribution width (RBC) [Ratio] 12.8 % Normal 11.0-15.[address] [facility] Comment on above: Performed By: #### C BC ####[facility] [address] [place], [place] [address]Dr. Kasia Nath Hematocrit (Bld) [Volume fraction] 38.5 % Normal 36.0-48.[address] [facility] Comment on above: Performed By: #### C BC ####[facility] Q[address]jicur[address] [place], [place] [address]Dr. Kasia Nath Hemoglobin (Bld) [Mass/Vol] 13.0 g/dL Normal 12.0-16.[address] [facility] Comment on above: Performed By: #### C BC ####[facility] [address] [place], [place] [address]Dr. Kasia Nath IG # 0.02 10e3/ul Normal 0.00-0.03 [facility] Comment on above: Performed By: #### C BC ####[facility] K[address] [place], [place] [address]Dr. Kasia Nath IG % 0.2 % Normal 0.0-0.5 [facility] Comment on above: Performed By: #### C BC ####[facility] [address] [place], [place] [address]Dr. Kasia Nath LYMPH # 0.9 103/ul Critically low 1.2-3.8 [facility] Comment on above: Performed By: #### C BC ####[facility] [address] [place], [place] [address]Dr. Kasia Nath Lymphocytes/100 WBC (Bld) 10.0 % Critically low 20.5-60.0 [facility] Comment on above: Performed By: #### C BC ####[facility] [address] [place], [place] [address]Dr. Kasia Nath MANUAL DIFF REQ NO Normal [facility] Comment on above: Performed By: #### C BC ####[facility] [address] [address]Dr. Kasia Nath MCH (RBC) [Entitic mass] 29.5 pg Normal 26.7-34.[address] [facility] Comment on above: Performed By: #### C BC ####[facility] [address] [address]Dr. Kasia Nath MCHC (RBC) [Mass/Vol] 33.8 g/dL Normal 29.9-35.2 [facility] Comment on above: Performed By: #### C BC ####[facility] [address] [place], [place] [address]Dr. Kasia Nath MCV (RBC) [Entitic vol] 87.5 fL Normal 81.0-99.0 [facility] Comment on above: Performed By: #### C BC ####[facility] [address] [place], [place] [address]Dr. Kasia Nath MONO # 0.5 103/ul Normal 0.3-0.8 [facility] Comment on above: Performed By: #### C BC ####[facility] [address] [place], [place] [address]Dr. Kasia Nath Monocytes/100 WBC (Bld) 5.7 % Normal 1.7-12.0 [facility] Comment on above: Performed By: #### C BC ####[facility] [address] [place], [place] [address]Dr. Kasia Nath NEUT # 7.2 103/ul Critically high 1.4-6.5 [facility] Comment on above: Performed By: #### C BC ####[facility] [address] [place], [place] [address]Dr. Kasia Nath Neutrophils/100 WBC (Bld) 82.6 % Critically high 43.0-75.0 [facility] Comment on above: Performed By: #### C BC ####[facility] [address] [place], [place] [address]Dr. Kasia Nath Platelet mean volume (Bld) [Entitic vol] 11.8 fL Normal 9.5-13.[address] [facility] Comment on above: Performed By: #### C BC ####[facility] [address] [place], [place] [address]Ap. Kasia Nath PLT 187 103/ul Normal 150-450 [facility] Comment on above: Performed By: #### C BC ####[facility] [address] [place], [place] [address]Dd. Kasia Nath RBC 4.40 106/ul Normal 4.20-5.[address] [facility] Comment on above: Performed By: #### C BC ####[facility] [address] [place], [place] [address]Zw. Kasia Nath WBC 8.8 103/ul Normal 4.0-11.[address] [facility] Comment on above: Performed By: #### C BC ####[facility] [address] [place], [place] [address]Qo. K[address] Nath CT ABD/PELVIS WO CONon 02-13 CT ABD/PELVIS WO CON EXAMINATION: CT ABD/PELVIS WO CON, 02/13/2023 1:53 PM EDT HISTORY: DIARRHEA, UNSPECIFIED COMPARISON: None. TECHNIQUE: CT scan of the abdomen and pelvis was performed without IV contrast. CT dose reduction technique was used, including Automated Exposure Control. ABDOMEN/PELVIS FINDINGS: Lower Chest: Unremarkable. Liver: Normal nonenhanced appearance and contour. Biliary/Gallbladder: Prior cholecystectomy. Pancreas: Unremarkable. Spleen: Unremarkable. Adrenal Glands: Unremarkable. Kidneys: Unremarkable. Gastrointestinal/Neda toneum: No acute abnormality. Postoperative changes present of a partial colonic resection. Mild colonic diverticulosis is present. The appendix is not discretely visualized. No free air or free fluid. Vascular: Moderate scattered atherosclerotic calcifications in the infrarenal aorta. Lymph Nodes: No enlarged lymph nodes by CT size criteria. Pelvic Organs: A cystic structure is present in the right adnexal region measuring 4.6 x 3.1 cm. Prior hysterectomy. Bladder: Unremarkable. Bones: No acute osseous abnormality. Postoperative changes of a posterior lumbar fusion and laminectomy at L4-L5. There are moderate multilevel degenerative changes present in the lumbar spine. Soft tissues: Unremarkable. IMPRESSION: 1. No acute abnormality of the abdomen and pelvis. 2. Cystic structure in the right adnexal region measuring up to 4.6 cm. Prior hysterectomy. A pelvic ultrasound can be considered for further assessment. 3. Prior cholecystectomy. 4. Prior partial colonic resection. 5. Mild colonic diverticulosis. Electronically authenticated by: JACOB KAZ Date: 2023-02-13 14:40 Normal [facility] CULTURE URINEon 02-13-2023 CULTURE URINE Culture Observations : LIGHT GROWTH OF MIXED GENITAL VON. NO POTENTIAL PATHOGENS SEEN. Normal [facility] Comment on above: Performed By: #### U RCX ####[facility] [address] [place], [place] [address]FrDr. Kasia Nath Covid-19 PCR ([facility])on SARS-CoV-2 (COVID-19) RNA FERN+probe Ql (Unsp spec) Not detected Normal NOT DETECTED [facility] Comment on above: Result Comment: When diagnostic testing is negative, the possibility of a false negative should be considered in the context of a patient's recent exposures and the presence of clinical signs and symptoms consistent with SARS-CoV-2. This test is not yet approved or cleared by the [place] FDA. When there are no FDA-approved or cleared tests available, and other criteria are met, FDA can make tests available under an emergency access mechanism called an Emergency Use Authorization (EUA). The EUA for this test is supported by the [employer] Inspector of Health and Human Service's declaration that circumstances exist to justify the emergency use of in vitro diagnostics for the detection and/or diagnosis of the virus that causes COVID-19. This EUA will remain in effect for the duration of the COVID-19 declaration justifying emergency of IVDs, unless it is terminated or revoked by the FDA (after which the test may no longer be used). Performed By: #### P OCGLUC #### [facility] [address] [place], [place] [address] Dr. Kasia Nath GI PANEL (PCR)on 02-13-2023 Adenovirus F 40/41 Not detected Normal NOT DETECTED [facility] Comment on above: Performed By: #### C BC #### [facility] [address] [place], [place] [address] Dr. Kasia Nath Astrovirus Not detected Normal NOT DETECTED [facility] Comment on above: Performed By: #### C BC #### [facility] [address] [place] [address] Dr. Kasia Del Real. Diff toxin A/B Not detected Normal NOT DETECTED [facility] Comment on above: Performed By: #### C BC #### [facility] [address] [place] [address] Dr. Kasia Nath Campylobacter Not detected Normal NOT DETECTED [facility] Comment on above: Performed By: #### C BC #### [facility] [address] [place] [address] Dr. Kasia Nath Cryptosporidium Not detected Normal NOT DETECTED [facility] Comment on above: Performed By: #### C BC #### [facility] [address] [place] [address] Dr. Kasia Nath Cyclos. Cayetanensis Not detected Normal NOT DETECTED [facility] Comment on above: Performed By: #### C BC #### [facility] [address] [place] [address] Dr. Kasia Nath E. Coli O157 Not Applicable Normal Not Applicable [facility] Comment on above: Performed By: #### C BC #### [facility] [address] [place] [address] Dr. Kasia Nath E. histolytica Not detected Normal NOT DETECTED [facility] Comment on above: Performed By: #### C BC #### [facility] [address] [place] [address] Dr. Kasia Nath EAEC Not detected Normal NOT DETECTED [facility] Comment on above: Performed By: #### C BC #### [facility] [address] [place] [address] Dr. Kasia Nath EIEC Not detected Normal NOT DETECTED [facility] Comment on above: Performed By: #### C BC #### [facility] [address] [place] [address] Dr. Kasia Nath EPEC Not detected Normal NOT DETECTED [facility] Comment on above: Performed By: #### C BC #### [facility] [address] [address] [address] Kasia Nath ETEC Not detected Normal NOT DETECTED [facility] Comment on above: Performed By: #### C BC #### [facility] [address] [address] [address] Kasia Cramer. Lamblia Not detected Normal NOT DETECTED [facility] Comment on above: Performed By: #### C BC #### [facility] [address] [address] [address] Kasia KHAN CONTROLS PASSED Normal [facility] Comment on above: Performed By: #### C BC #### [facility] [address] [address] [address] Kasia FRAIRE HEADER GI PANEL BACTERIA Normal T [facility] Comment on above: Performed By: #### C BC #### [facility] [address] [address] [address] Kasia GE ECOLI GI PANEL DIARRHEAGENIC E.COLI / SHIGELLA Normal [facility] Comment on above: Performed By: #### C BC #### [facility] [address] [address] [address] Kasia GE INFO SEE BELOW [facility] Comment on above: Result Comment: EAEC - Enteroaggregative E. Coli EPEC- Enteropathogenic E. Coli ETEC- Enterotoxigenic E. Coli lt/st STEC- Shigella-like toxin-producing E. Coli stx1/stx2 EIEC- Shigella/Enteroinvasive E. Coli Performed By: #### C BC #### [facility] [address] [address] [address] Kasia GE PARASITES GI PANEL PARASITES Normal [facility] Comment on above: Performed By: #### C BC #### [facility] [address] [address] [address] Kasia GE VIRUS GI PANEL VIRUSES Normal [facility] Comment on above: Performed By: #### C BC #### [facility] [address] [address] [address] Kasia Nath Norovirus GI/GII Not detected Normal NOT DETECTED [facility] Comment on above: Performed By: #### C BC #### [facility] [address] [place] [address] Dr. Kasia Nath P. Shigelloides Not detected Normal NOT DETECTED [facility] Comment on above: Performed By: #### C BC #### [facility] [address] [place] [address] Dr. Kasia Nath Rotavirus A Not detected Normal NOT DETECTED [facility] Comment on above: Performed By: #### C BC #### [facility] [address] [place] [address] Dr. Kasia Nath Salmonella Not detected Normal NOT DETECTED [facility] Comment on above: Performed By: #### C BC #### [facility] [address] [place] [address] Dr. Kasia Nath Sapovirus Not detected Normal NOT DETECTED [facility] Comment on above: Performed By: #### C BC #### [facility] [address] [place] [address] Dr. Kasia Nath STEC Not detected Normal NOT DETECTED [facility] Comment on above: Performed By: #### C BC #### [facility] [address] [place] [address] Dr. Kasia Nath Vibrio Not detected Normal NOT DETECTED [facility] Comment on above: Performed By: #### C BC #### [facility] [address] [place] [address] Dr. Kasia Nath Vibrio Cholera Not detected Normal NOT DETECTED [facility] Comment on above: Performed By: #### C BC #### [facility] [address] [place] [address] Dr. Kasia Nath Y. Enterocolitica Not detected Normal NOT DETECTED [facility] Comment on above: Performed By: #### C BC #### [facility] [address] [place] [address] Dr. Kasia Nath LACTATE/LACTIC ACIDon 2022 Lactate [Moles/Vol] 1.7 mmol/L Normal 0.4-2.0 [facility] Comment on above: Performed By: #### L ACT ####[facility] [address] [address]Dr. Kasia Nath LIPASEon 02-13-2023 Lipase [Catalytic activity/Vol] 82.0 U/L Normal 73.0-393.[address] [facility] Comment on above: Performed By: #### L IPA, CMP #### [facility] [address] [address] [address] Kasia Nath POINT OF CARE GLUCOSEon Glucose [Mass/Vol] 229 mg/dL Critically high 74-106 [facility] Comment on above: Performed By: #### P OCGLUC #### [facility] [address] [place] [address] Dr. Kasia Nath Glucose [Mass/Vol] 474 mg/dL Critically high 74-106 [facility] Comment on above: Performed By: #### P OCGLUC #### [facility] [address] [place] [address] Dr. Kasia Nath PROF 14(COMP METB)on 023 Albumin [Mass/Vol] 3.4 g/dL Normal 3.4-5.0 [facility] Comment on above: Performed By: #### L IPA, CMP #### [facility] [address] [place] [address] Dr. Kasia Nath Albumin/Globulin [Mass ratio] 0.7 {ratio} Normal [facility] Comment on above: Performed By: #### L IPA, CMP #### [facility] [address] [place] [address] Dr. Kasia Nath ALP [Catalytic activity/Vol] 106 U/L Normal 46-[address] [facility] Comment on above: Performed By: #### L IPA, CMP #### [facility] [address] [place] [address] Dr. Kasia Nath ALT [Catalytic activity/Vol] 21 U/L Normal 14-[address] [facility] Comment on above: Performed By: #### L IPA, CMP #### [facility] [address] [place] [address] Dr. Kasia Nath Anion gap [Moles/Vol] 17.7 mmol/L Normal [facility] Comment on above: Performed By: #### L IPA, CMP #### [facility] [address] [address] [address] Kasia aNth AST [Catalytic activity/Vol] 11 U/L Critically low 15-[address] [facility] Comment on above: Performed By: #### L IPA, CMP #### [facility] [address] [address] [address] Kasia Nath Bilirubin [Mass/Vol] 0.5 mg/dL Normal 0.2-1.[address] [facility] Comment on above: Performed By: #### L IPA, CMP #### [facility] [address] [place] [address] Dr. Kasia Nath Calcium [Mass/Vol] 9.6 mg/dL Normal 8.5-10.1 [facility] Comment on above: Performed By: #### L IPA, CMP #### [facility] [address] [place] [address] Dr. Kasia Nath Chloride [Moles/Vol] 99 mmol/L Normal 98-[address] [facility] Comment on above: Performed By: #### L IPA, CMP #### [facility] [address] [place] [address] Dr. Kasia Nath CO2 [Moles/Vol] 20.6 mmol/L Critically low 21.0-32.[address] [facility] Comment on above: Performed By: #### L IPA, CMP #### [facility] [address] [place] [address] Dr. Kasia Nath Creatinine [Mass/Vol] 2.14 mg/dL Critically high 0.55-1.[address] [facility] Comment on above: Performed By: #### L IPA, CMP #### [facility] [address] [place] [address] Dr. Kasia Nath EGFR-AF CANADIAN 27 mL/min/1.73m2 Critically low >=60 [facility] Comment on above: Performed By: #### L IPA, CMP #### [facility] [address] [address] [address] Kasia Nath EGFR-NON AF CANADIAN 22 mL/min/1.73m2 Critically low >=[address] [facility] Comment on above: Performed By: #### L IPA, CMP #### [facility] [address] [address] [address] Kasia Nath Globulin (S) [Mass/Vol] 4.8 g/dL Normal [facility] Comment on above: Performed By: #### L IPA, CMP #### [facility] [address] [address] [address] Kasia Nath Glucose [Mass/Vol] 498 mg/dL Critically high 74-[address] [facility] Comment on above: Performed By: #### L IPA, CMP #### [facility] [address] [address] [address] Kasia Nath Potassium [Moles/Vol] 5.3 mmol/L Critically high 3.5-5.[address] [facility] Comment on above: Performed By: #### L IPA, CMP #### [facility] [address] [address] [address] Kasia Nath Protein [Mass/Vol] 8.2 g/dL Normal 6.4-8.2 [facility] Comment on above: Performed By: #### L IPA, CMP #### [facility] [address] [address] [address] Kasia Nath Sodium [Moles/Vol] 132 mmol/L Critically low 136-145 Th [facility] Comment on above: Performed By: #### L IPA, CMP #### [facility] [address] [address] [address] Kasia Nath Urea nitrogen [Mass/Vol] 86.0 mg/dL Critically high 7.0-18.[address] [facility] Comment on above: Performed By: #### L IPA, CMP #### [facility] [address] [address] [address] Kasia Nath Urea nitrogen/Creatinine [Mass ratio] 40.2 mg/mg Normal [facility] Comment on above: Performed By: #### L IPA, CMP #### [facility] [address] [place], [place] [address] Dr. Kasia Nath UA RANDOM W/MICROSCOPICon BACTERIA TRACE Abnormal NONE SEEN The [facility] Comment on above: Performed By: #### U AMIC ####[facility] [address] [address]Dr. Kasia Nath Bilirubin Ql (U) Negative Normal NEGATIVE [facility] Comment on above: Performed By: #### U AMIC ####[facility] [address] [address]Dr. Kasia Nath CAST SEEN Abnormal NONE SEEN The [facility] Comment on above: Performed By: #### U AMIC ####[facility] [address] [address]Dr. Kasia Nath Clarity (U) CLEAR Normal CLEAR [facility] Comment on above: Performed By: #### U AMIC ####[facility] [address] [address]Dr. Kasia Nath Color (U) LT. YELLOW Normal YELLOW [facility] Comment on above: Performed By: #### U AMIC ####[facility] [address] [address]Dr. Kasia Nath Crystals LM Nom (Urine sed) NONE SEEN Normal NONE SEEN [facility] Comment on above: Performed By: #### U AMIC ####[facility] [address] [address]Dr. Kasia Nath Epithelial cells LM Ql (Urine sed) FEW Abnormal NONE SEEN /RARE The [facility] Comment on above: Performed By: #### U AMIC ####[facility] [address] [address]Dr. Kasia Nath Glucose Ql (U) >1000 Abnormal NEGATIVE [facility] Comment on above: Performed By: #### U AMIC ####[facility] [address] [address]Dr. Kasia Nath Hemoglobin Ql (U) Negative Normal NEGATIVE [facility] Comment on above: Performed By: #### U AMIC ####[facility] [address] [address]Dr. Kasia Nath HYALINE CAST RARE Normal [facility] Comment on above: Performed By: #### U AMIC ####[facility] [address] [address]Dr. Kasia Nath Ketones Ql (U) Negative Normal NEGATIVE [facility] Comment on above: Performed By: #### U AMIC ####[facility] [address] [address]Dr. Kasia Nath LEUKOCYTES Negative Normal NEGATIVE [facility] Comment on above: Performed By: #### U AMIC ####[facility] [address] [address]Dr. Kasia Nath MUCOUS NONE SEEN Normal NONE SEEN The [facility] Comment on above: Performed By: #### U AMIC ####[facility] [address] [address]Dr. Kasia Nath Nitrite Ql (U) Negative Normal NEGATIVE [facility] Comment on above: Performed By: #### U AMIC ####[facility] [address] [address]Dr. Kasia Nath pH (U) 5.5 [pH] Normal 5-9 [facility] Comment on above: Performed By: #### U AMIC ####[facility] [address] [address]Dr. Kasia Nath RBC 0-2 Normal 0-2 [facility] Comment on above: Performed By: #### U AMIC ####[facility] [address] [address]Dr. Kasia Nath SPEC GRAVITY 1.015 Normal 1.005-<=1.025 [facility] Comment on above: Performed By: #### U AMIC ####[facility] [address] [address]Dr. Kasia Nath UA PROTEIN TRACE Normal NEGATIVE/ TRACE The [facility] Comment on above: Performed By: #### U AMIC ####[facility] [address] [place], [place] [address]Dr. Kasia Nath Urobilinogen Qn (U) 0.2 {Meka'U}/dL Normal 0.2 - 1. [address] [facility] Comment on above: Performed By: #### U AMIC ####[facility] [address] [address]Dr. Kasia Nath WBC 0-2 Abnormal NONE SEEN The [facility] Comment on above: Performed By: #### U AMIC ####[facility] [address] [address]Dr. Kasia Nath BNPon 01-16-2023 Natriuretic peptide B (Bld) [Mass/Vol] 1675.0 pg/mL Normal <=1,800.0 [facility] Comment on above: Performed By: #### B MAINTENANCE DEPARTMENT TECHNICIAN, CMP ####[facility] [address] [place], [place] [address]Dr. Kasia Nath PROF 14(COMP METB)on 023 Albumin [Mass/Vol] 3.4 g/dL Normal 3.4-5.0 [facility] Comment on above: Performed By: #### B MAINTENANCE DEPARTMENT TECHNICIAN, CMP ####[facility] [address] [place], [place] [address]Dr. Kasia Nath Albumin/Globulin [Mass ratio] 0.8 {ratio} Normal [facility] Comment on above: Performed By: #### B MAINTENANCE DEPARTMENT TECHNICIAN, CMP ####[facility] [address] [place], [place] [address]Dr. Kasia Nath ALP [Catalytic activity/Vol] 99 U/L Normal 46-116 [facility] Comment on above: Performed By: #### B MAINTENANCE DEPARTMENT TECHNICIAN, CMP ####[facility] [address] [place], [place] [address]Dr. Kasia Nath ALT [Catalytic activity/Vol] 18 U/L Normal 14-[address] [facility] Comment on above: Performed By: #### B MAINTENANCE DEPARTMENT TECHNICIAN, CMP ####[facility] [address] [place], [place] [address]Dr. Kasia Nath Anion gap [Moles/Vol] 10.6 mmol/L Normal [facility] Comment on above: Performed By: #### B MAINTENANCE DEPARTMENT TECHNICIAN, CMP ####[facility] [address] [id number]. Kasia Nath AST [Catalytic activity/Vol] 15 U/L Normal 15-[address] [facility] Comment on above: Performed By: #### B MAINTENANCE DEPARTMENT TECHNICIAN, CMP ####[facility] [address] [id number]. Kasia Nath Bilirubin [Mass/Vol] 0.5 mg/dL Normal 0.2-1.[address] [facility] Comment on above: Performed By: #### B MAINTENANCE DEPARTMENT TECHNICIAN, CMP ####[facility] [address] [place], [place] [address]Dr. Kasia Nath Calcium [Mass/Vol] 9.1 mg/dL Normal 8.5-10.1 [facility] Comment on above: Performed By: #### B MAINTENANCE DEPARTMENT TECHNICIAN, CMP ####[facility] [address] [place], [place] [address]Dr. Kasia Nath Chloride [Moles/Vol] 98 mmol/L Normal 98-[address] [facility] Comment on above: Performed By: #### B MAINTENANCE DEPARTMENT TECHNICIAN, CMP ####[facility] [address] [place], [place] [address]Dr. Kasia Nath CO2 [Moles/Vol] 30.4 mmol/L Normal 21.0-32.0 [facility] Comment on above: Performed By: #### B MAINTENANCE DEPARTMENT TECHNICIAN, CMP ####[facility] [address] [place], [place] [address]Dr. Kasia Nath Creatinine [Mass/Vol] 1.44 mg/dL Critically high 0.55-1.[address] [facility] Comment on above: Performed By: #### B MAINTENANCE DEPARTMENT TECHNICIAN, CMP ####[facility] [address] [place], [place] [address]Dr. Kasia Portillo EGFR-AF CANADIAN 43 mL/min/1.73m2 Critically low >=[address] [facility] Comment on above: Performed By: #### B MAINTENANCE DEPARTMENT TECHNICIAN, CMP ####[facility] [address] [place], [place] [address]Dr. Kasia Portillo EGFR-NON AF CANADIAN 35 mL/min/1.73m2 Critically low >=[address] [facility] Comment on above: Performed By: #### B MAINTENANCE DEPARTMENT TECHNICIAN, CMP ####[facility] [address] [place], [place] [address]Dr. Kasia Nath Globulin (S) [Mass/Vol] 4.4 g/dL Normal [facility] Comment on above: Performed By: #### B MAINTENANCE DEPARTMENT TECHNICIAN, CMP ####[facility] [address] [place], [place] [address]Dr. Fartuncristy Nath Glucose [Mass/Vol] 401 mg/dL Critically high 74-[address] [facility] Comment on above: Performed By: #### B MAINTENANCE DEPARTMENT TECHNICIAN, CMP ####[facility] [address] [place], [place] [address]Dr. Fartuncristy Portillo Potassium [Moles/Vol] 5.0 mmol/L Normal 3.5-5.[address] [facility] Comment on above: Performed By: #### B MAINTENANCE DEPARTMENT TECHNICIAN, CMP ####[facility] [address] [place], [place] [address]Dr. Kasia Nath Protein [Mass/Vol] 7.8 g/dL Normal 6.4-8.2 [facility] Comment on above: Performed By: #### B MAINTENANCE DEPARTMENT TECHNICIAN, CMP ####[facility] [address] [place], [place] [address]Dr. Kasia Portillo Sodium [Moles/Vol] 134 mmol/L Critically low 136-145 Th [facility] Comment on above: Performed By: #### B MAINTENANCE DEPARTMENT TECHNICIAN, CMP ####[facility] [address] [place], [place] [address]Dr. Kasia Portillo Urea nitrogen [Mass/Vol] 46.0 mg/dL Critically high 7.0-18.[address] [facility] Comment on above: Performed By: #### B MAINTENANCE DEPARTMENT TECHNICIAN, CMP ####[facility] [address] [place], [place] [address]Dr. Fartuncristy Portillo Urea nitrogen/Creatinine [Mass ratio] 31.9 mg/mg Normal [facility] Comment on above: Performed By: #### B MAINTENANCE DEPARTMENT TECHNICIAN, CMP ####[facility] [address] [place], [place] [address]Dr. Kasia Nath BNPon 01-05-2023 Natriuretic peptide B (Bld) [Mass/Vol] 1389.0 pg/mL Normal <=1,800.0 [facility] Comment on above: Performed By: #### B MAINTENANCE DEPARTMENT TECHNICIAN, CMADM, CMP ####[facility] [address] [id number]. Kasia Nath CARDIAC EMERY ADMITon 023 CK [Catalytic activity/Vol] 138 U/L Normal 26-192 [facility] Comment on above: Performed By: #### B MAINTENANCE DEPARTMENT TECHNICIAN, CMADM, CMP ####[facility] [address] [phone] Nath CK.MB [Mass/Vol] 2.22 ng/mL Normal <=3.60 [facility] Comment on above: Performed By: #### B MAINTENANCE DEPARTMENT TECHNICIAN, CMADM, CMP ####[facility] [address] [address]DrDoreen Nath HSTROP 15.9 pg/mL Normal 4.0-51.3 [facility] Comment on above: Result Comment: CUT- OFF POINTS HAVE BEEN ESTABLISHED BASED ON THE FOURTH UNIVERSAL DEFINITIONS OF MYOCARDIAL INFARCTION. THE UPPER REFERENCE LIMIT (URL) OF TROPONIN, DEFINED THE 99TH PERCENTILE OF cTnI DISTRIBUTION IN A REFERENCE POPULATION, HAS BEEN CONFIRMED THE DECISION THRESHOLD FOR [place] DIAGNOSIS. Performed By: #### B MAINTENANCE DEPARTMENT TECHNICIAN, CMADM, CMP ####[facility] [address] [phone] Nath GRETTA 178 ng/mL Critically high 9-82 [facility] Comment on above: Performed By: #### B MAINTENANCE DEPARTMENT TECHNICIAN, CMADM, CMP ####[facility] [address] [id number] Nath CBC AUTO DIFFon 01-05-2023 BASO # 0.1 103/ul Normal 0.0-0.[address] [facility] Comment on above: Performed By: #### C BC #### [facility] [address], [place] [address] Dr. Kasia Nath Basophils/100 WBC (Bld) 0.7 % Normal 0.2-2.0 [facility] Comment on above: Performed By: #### C BC #### [facility] [address] [place] [address] Dr. Kasia Nath EO # 0.3 103/ul Normal 0.0-0.[address] [facility] Comment on above: Performed By: #### C BC #### [facility] [address] [place] [address] Dr. Kasia Nath Eosinophils/100 WBC (Bld) 2.9 % Normal 0.9-7.[address] [facility] Comment on above: Performed By: #### C BC #### [facility] [address] [place] [address] Dr. Kasia Nath Erythrocyte distribution width (RBC) [Ratio] 13.5 % Normal 11.0-15.[address] [facility] Comment on above: Performed By: #### C BC #### [facility] [address] [place] [address] Dr. Kasia Nath Hematocrit (Bld) [Volume fraction] 39.8 % Normal 36.0-48.[address] [facility] Comment on above: Performed By: #### C BC #### [facility] [address] [place] [address] Dr. Kasia Nath Hemoglobin (Bld) [Mass/Vol] 13.5 g/dL Normal 12.0-16.[address] [facility] Comment on above: Performed By: #### C BC #### [facility] [address] [place] [address] Dr. Kasia Nath IG # 0.02 10e3/ul Normal 0.00-0.[address] [facility] Comment on above: Performed By: #### C BC #### [facility] [address] [place] [address] Dr. Kasia Nath IG % 0.2 % Normal 0.0-0.[address] [facility] Comment on above: Performed By: #### C BC #### [facility] [address] [place] [address] Dr. Kasia Nath LYMPH # 1.9 103/ul Normal 1.2-3.8 [facility] Comment on above: Performed By: #### C BC #### [facility] [address] [place] [address] Dr. Kasia Nath Lymphocytes/100 WBC (Bld) 22.0 % Normal 20.5-60.[address] [facility] Comment on above: Performed By: #### C BC #### [facility] [address] [place] [address] Dr. Kasia Nath MANUAL DIFF REQ NO Normal [facility] Comment on above: Performed By: #### C BC #### [facility] [address] [place] [address] Dr. Kasia Nath MCH (RBC) [Entitic mass] 29.8 pg Normal 26.7-34.[address] [facility] Comment on above: Performed By: #### C BC #### [facility] [address] [place] [address] Dr. Kasia Nath MCHC (RBC) [Mass/Vol] 33.9 g/dL Normal 29.9-35.[address] [facility] Comment on above: Performed By: #### C BC #### [facility] [address] [place] [address] Dr. Kasia Nath MCV (RBC) [Entitic vol] 87.9 fL Normal 81.0-99.[address] [facility] Comment on above: Performed By: #### C BC #### [facility] [address] [place] [address] Dr. Kasia Nath MONO # 0.8 103/ul Normal 0.3-0.8 [facility] Comment on above: Performed By: #### C BC #### [facility] [address] [place] [address] Dr. Kasia Nath Monocytes/100 WBC (Bld) 8.8 % Normal 1.7-12.0 [facility] Comment on above: Performed By: #### C BC #### [facility] [address] [place] [address] Dr. Kasia Nath NEUT # 5.6 103/ul Normal 1.4-6.5 [facility] Comment on above: Performed By: #### C BC #### [facility] [address] [place] [address] Dr. Kasia Nath Neutrophils/100 WBC (Bld) 65.4 % Normal 43.0-75.[address] [facility] Comment on above: Performed By: #### C BC #### [facility] [address] [place] [address] Dr. Kasia Nath Platelet mean volume (Bld) [Entitic vol] 10.6 fL Normal 9.5-13.[address] [facility] Comment on above: Performed By: #### C BC #### [facility] [address] [place] [address] Dr. Kasia Nath PLT 222 103/ul Normal 150-[address] [facility] Comment on above: Performed By: #### C BC #### [facility] [address] [place] [address] Dr. Kasia Nath RBC 4.53 106/ul Normal 4.20-5.[address] [facility] Comment on above: Performed By: #### C BC #### [facility] [address] [place] [address] Dr. Kasia Nath WBC 8.6 103/ul Normal 4.0-11.[address] [facility] Comment on above: Performed By: #### C BC #### [facility] [address] [place] [address] Dr. Kasia Nath PROF 14(COMP METB)on 023 Albumin [Mass/Vol] 3.3 g/dL Critically low 3.4-5.0 [facility] Comment on above: Performed By: #### B MAINTENANCE DEPARTMENT TECHNICIAN, CMADM, CMP #### [facility] [address] [place] [address] Dr. Kasia Nath Albumin/Globulin [Mass ratio] 0.7 {ratio} Normal [facility] Comment on above: Performed By: #### B MAINTENANCE DEPARTMENT TECHNICIAN, CMADM, CMP #### [facility] [address] [place] [address] Dr. Kasia Nath ALP [Catalytic activity/Vol] 106 U/L Normal 46-[address] [facility] Comment on above: Performed By: #### B MAINTENANCE DEPARTMENT TECHNICIAN, CMADM, CMP #### [facility] [address] [address] [address] Kasia Nath ALT [Catalytic activity/Vol] 22 U/L Normal 14-[address] [facility] Comment on above: Performed By: #### B MAINTENANCE DEPARTMENT TECHNICIAN, CMADM, CMP #### [facility] [address] [address] [address] Kasia Nath Anion gap [Moles/Vol] 12.0 mmol/L Normal [facility] Comment on above: Performed By: #### B MAINTENANCE DEPARTMENT TECHNICIAN, CMADM, CMP #### [facility] [address] [address] [address] Kasia Nath AST [Catalytic activity/Vol] 23 U/L Normal 15-[address] [facility] Comment on above: Performed By: #### B MAINTENANCE DEPARTMENT TECHNICIAN, CMADM, CMP #### [facility] [address] [address] [address] Kasia Nath Bilirubin [Mass/Vol] 0.7 mg/dL Normal 0.2-1.[address] [facility] Comment on above: Performed By: #### B MAINTENANCE DEPARTMENT TECHNICIAN, CMADM, CMP #### [facility] [address] [address] [address] Kasia Nath Calcium [Mass/Vol] 8.8 mg/dL Normal 8.5-10.1 [facility] Comment on above: Performed By: #### B MAINTENANCE DEPARTMENT TECHNICIAN, CMADM, CMP #### [facility] [address] [address] [address] Kasia Nath Chloride [Moles/Vol] 98 mmol/L Normal 98-[address] [facility] Comment on above: Performed By: #### B MAINTENANCE DEPARTMENT TECHNICIAN, CMADM, CMP #### [facility] [address] [address] [address] Kasia Nath CO2 [Moles/Vol] 30.2 mmol/L Normal 21.0-32.0 [facility] Comment on above: Performed By: #### B MAINTENANCE DEPARTMENT TECHNICIAN, CMADM, CMP #### [facility] [address] [address] [address] Kasia Nath Creatinine [Mass/Vol] 1.19 mg/dL Critically high 0.55-1.[address] [facility] Comment on above: Performed By: #### B MAINTENANCE DEPARTMENT TECHNICIAN, CMADM, CMP #### [facility] [address] [place] [address] Dr. Kasia Nath EGFR-AF CANADIAN 53 mL/min/1.73m2 Critically low >=[address] [facility] Comment on above: Performed By: #### B MAINTENANCE DEPARTMENT TECHNICIAN, CMADM, CMP #### [facility] [address] [place] [address] Dr. Kasia Nath EGFR-NON AF CANADIAN 44 mL/min/1.73m2 Critically low >=[address] [facility] Comment on above: Performed By: #### B MAINTENANCE DEPARTMENT TECHNICIAN, CMADM, CMP #### [facility] [address] [place] [address] Dr. Kasia Nath Globulin (S) [Mass/Vol] 4.7 g/dL Normal [facility] Comment on above: Performed By: #### B MAINTENANCE DEPARTMENT TECHNICIAN, CMADM, CMP #### [facility] [address] [place] [address] Dr. Kasia Nath Glucose [Mass/Vol] 124 mg/dL Critically high 74-106 [facility] Comment on above: Performed By: #### B MAINTENANCE DEPARTMENT TECHNICIAN, CMADM, CMP #### [facility] [address] [place] [address] Dr. Kasia Nath Potassium [Moles/Vol] 3.2 mmol/L Critically low 3.5-5.[address] [facility] Comment on above: Performed By: #### B MAINTENANCE DEPARTMENT TECHNICIAN, CMADM, CMP #### [facility] [address] [place] [address] Dr. Kasia Nath Protein [Mass/Vol] 8.0 g/dL Normal 6.4-8.2 [facility] Comment on above: Performed By: #### B MAINTENANCE DEPARTMENT TECHNICIAN, CMADM, CMP #### [facility] [address] [place] [address] Dr. Kasia Nath Sodium [Moles/Vol] 137 mmol/L Normal 136-145 [facility] Comment on above: Performed By: #### B MAINTENANCE DEPARTMENT TECHNICIAN, CMADM, CMP #### [facility] [address] [place], [place] [address] Dr. Kasia Nath Urea nitrogen [Mass/Vol] 29.0 mg/dL Critically high 7.0-18.[address] [facility] Comment on above: Performed By: #### B MAINTENANCE DEPARTMENT TECHNICIAN, CMADM, CMP #### [facility] [address] [place], [place] [address] Dr. Kasia Nath Urea nitrogen/Creatinine [Mass ratio] 24.4 mg/mg Normal [facility] Comment on above: Performed By: #### B MAINTENANCE DEPARTMENT TECHNICIAN, CMADM, CMP #### [facility] [address] [place], [place] [address] Dr. Kasia Nath TROPONIN, HIGH SENSITIVITYon 01-05-2023 HSTROP 18.4 pg/mL Normal 4.0-51.[address] [facility] Comment on above: Result Comment: CUT- OFF POINTS HAVE BEEN ESTABLISHED BASED ON THE FOURTH UNIVERSAL DEFINITIONS OF MYOCARDIAL INFARCTION. THE UPPER REFERENCE LIMIT (URL) OF TROPONIN, DEFINED THE 99TH PERCENTILE OF cTnI DISTRIBUTION IN A REFERENCE POPULATION, HAS BEEN CONFIRMED THE DECISION THRESHOLD FOR [place] DIAGNOSIS. Performed By: #### H STROPN ####[facility] [address] [place], [place] [address]IeDr. Kasia Nath XR CHEST 1 Von 01-05-2023 XR CHEST 1 V EXAM: XR CHEST 1 V HISTORY: CHEST PAIN, UNSPECIFIED COMPARISON: 01/01/2023 TECHNIQUE: Chest single view. FINDINGS: Lines/tubes/devices: EKG leads overlie the chest. No indwelling lines are seen. Cardiomediastinum: Cardiac silhouette appears stable, mildly enlarged. Aortic atherosclerosis. Stable mediastinal silhouette. Vasculature: Central vascular congestion and probable interstitial edema, appears slightly decreased. Lungs/pleura: Decreased bilateral pleural effusions and bibasilar airspace opacities. No new or worsening infiltrate or visualized pneumothorax. Bones/soft tissues: Bony thorax appears grossly intact as seen. Regional soft tissues appear unremarkable. IMPRESSION: Interval improvement with decreased pleural effusions, bibasilar atelectasis/airspace disease, and congestive changes. No acute finding. Electronically authenticated by: BIN ROJAS Date: 2023-01-05 04:39 Normal [facility] BNPon 01-02-2023 Natriuretic peptide B (Bld) [Mass/Vol] 2583.0 pg/mL Critically high <=1,800.0 [facility] Comment on above: Performed By: #### B MAINTENANCE DEPARTMENT TECHNICIAN, CMP ####[facility] [address] [address]Dr. Kasia Nath CBC AUTO DIFFon 01-02-2023 BASO # 0.1 103/ul Normal 0.0-0.[address] [facility] Comment on above: Performed By: #### P OCGLUC #### [facility] [address] [address] [address] Kasia Nath Basophils/100 WBC (Bld) 0.9 % Normal 0.2-2.[address] [facility] Comment on above: Performed By: #### P OCGLUC #### [facility] [address] [address] [address] Kasia Nath EO # 0.2 103/ul Normal 0.0-0.7 [facility] Comment on above: Performed By: #### P OCGLUC #### [facility] [address] [address] [address] Kasia Nath Eosinophils/100 WBC (Bld) 2.3 % Normal 0.9-7.[address] [facility] Comment on above: Performed By: #### P OCGLUC #### [facility] [address] [address] [address] Kasia Nath Erythrocyte distribution width (RBC) [Ratio] 13.8 % Normal 11.0-15.0 [facility] Comment on above: Performed By: #### P OCGLUC #### [facility] [address] [address] [address] Kasia Nath Hematocrit (Bld) [Volume fraction] 35.5 % Critically low 36.0-48.0 [facility] Comment on above: Performed By: #### P OCGLUC #### [facility] [address] [address] [address] Kasia Nath Hemoglobin (Bld) [Mass/Vol] 11.6 g/dL Critically low 12.0-16.0 [facility] Comment on above: Performed By: #### P OCGLUC #### [facility] [address] [address] [address] Kasia Nath IG # 0.02 10e3/ul Normal 0.00-0.[address] [facility] Comment on above: Performed By: #### P OCGLUC #### [facility] [address] [place] [address] Dr. Kasia Nath IG % 0.3 % Normal 0.0-0.[address] [facility] Comment on above: Performed By: #### P OCGLUC #### [facility] [address] [address] [address] Kasia Nath LYMPH # 2.0 103/ul Normal 1.2-3.[address] [facility] Comment on above: Performed By: #### P OCGLUC #### [facility] [address] [place] [address] Dr. Kasia Nath Lymphocytes/100 WBC (Bld) 24.8 % Normal 20.5-60.[address] [facility] Comment on above: Performed By: #### P OCGLUC #### [facility] [address] [place] [address] Dr. Kasia Nath MANUAL DIFF REQ NO Normal [facility] Comment on above: Performed By: #### P OCGLUC #### [facility] [address] [place] [address] Dr. Kasia Nath MCH (RBC) [Entitic mass] 28.7 pg Normal 26.7-34.[address] [facility] Comment on above: Performed By: #### P OCGLUC #### [facility] [address] [place] [address] Dr. Kasia Nath MCHC (RBC) [Mass/Vol] 32.7 g/dL Normal 29.9-35.[address] [facility] Comment on above: Performed By: #### P OCGLUC #### [facility] [address] [place] [address] Dr. Kasia Nath MCV (RBC) [Entitic vol] 87.9 fL Normal 81.0-99.[address] [facility] Comment on above: Performed By: #### P OCGLUC #### [facility] [address] [address] [address] Kasia Nath MONO # 0.8 103/ul Normal 0.3-0.[address] [facility] Comment on above: Performed By: #### P OCGLUC #### [facility] [address] [address] [address] Kasia Nath Monocytes/100 WBC (Bld) 9.6 % Normal 1.7-12.[address] [facility] Comment on above: Performed By: #### P OCGLUC #### [facility] [address] [address] [address] Kasia Nath NEUT # 5.0 103/ul Normal 1.4-6.[address] [facility] Comment on above: Performed By: #### P OCGLUC #### [facility] [address] [place] [address] Dr. Kasia Nath Neutrophils/100 WBC (Bld) 62.1 % Normal 43.0-75.[address] [facility] Comment on above: Performed By: #### P OCGLUC #### [facility] [address] [address] [address] Kasia Nath Platelet mean volume (Bld) [Entitic vol] 10.7 fL Normal 9.5-13.[address] [facility] Comment on above: Performed By: #### P OCGLUC #### [facility] [address] [place] [address] Dr. Kasia Nath PLT 204 103/ul Normal 150-450 [facility] Comment on above: Performed By: #### P OCGLUC #### [facility] [address] [address] [address] Kasia Nath RBC 4.04 106/ul Critically low 4.20-5.40 [facility] Comment on above: Performed By: #### P OCGLUC #### [facility] [address] [place] [address] Dr. Kasia Nath WBC 8.0 103/ul Normal 4.0-11.0 [facility] Comment on above: Performed By: #### P OCGLUC #### [facility] [address] [address] [address] Kasia Nath GLYCOHEMOGLOBIN A1Con 2022 ADA RECOMMENDATION SEE BELOW Normal [facility] Comment on above: Result Comment: ADA RECOMMENDED LIMIT 4.0 - 6.0 ADA THERAPEUTIC TARGET < 7.0 ACTION SUGGESTED > 7.0 Performed By: #### A 1C ####[facility] [address] [id number]. Kasia Nath Glucose [Mass/Vol] 298 mg/dL Normal [facility] Comment on above: Performed By: #### A 1C ####[facility] [address] [address]Dr. Kasia Nath HbA1c (Bld) [Mass fraction] 12.0 % Critically high 4.5-6.[address] [facility] Comment on above: Performed By: #### A 1C ####[facility] [address] [address]Dr. Kasia Nath POINT OF CARE GLUCOSEon 12-14 Glucose [Mass/Vol] 227 mg/dL Critically high 74-106 [facility] Comment on above: Performed By: #### C BC #### [facility] [address] [address] [address] Kasia Nath Glucose [Mass/Vol] 214 mg/dL Critically high 74-106 [facility] Comment on above: Performed By: #### C BC #### [facility] [address] [address] [address] Kasia Nath PROF 14(COMP METB)on 023 Albumin [Mass/Vol] 2.6 g/dL Critically low 3.4-5.0 [facility] Comment on above: Performed By: #### B MAINTENANCE DEPARTMENT TECHNICIAN, CMP ####[facility] [address] [address]DrDoreen Nath Albumin/Globulin [Mass ratio] 0.6 {ratio} Normal [facility] Comment on above: Performed By: #### B MAINTENANCE DEPARTMENT TECHNICIAN, CMP ####[facility] [address] [address]DrDoreen Nath ALP [Catalytic activity/Vol] 94 U/L Normal 46-[address] [facility] Comment on above: Performed By: #### B MAINTENANCE DEPARTMENT TECHNICIAN, CMP ####[facility] [address] [place], [place] [address]Dr. Kasia Nath ALT [Catalytic activity/Vol] 16 U/L Normal 14-[address] [facility] Comment on above: Performed By: #### B MAINTENANCE DEPARTMENT TECHNICIAN, CMP ####[facility] [address] [place], [place] [address]Dr. Fartuncristy Nath Anion gap [Moles/Vol] 10.6 mmol/L Normal [facility] Comment on above: Performed By: #### B MAINTENANCE DEPARTMENT TECHNICIAN, CMP ####[facility] [address] [place], [place] [address]Dr. Fartuncristy Portillo AST [Catalytic activity/Vol] 15 U/L Normal 15-[address] [facility] Comment on above: Performed By: #### B MAINTENANCE DEPARTMENT TECHNICIAN, CMP ####[facility] [address] [place], [place] [address]Dr. Fartuncristy Portillo Bilirubin [Mass/Vol] 0.8 mg/dL Normal 0.2-1.[address] [facility] Comment on above: Performed By: #### B MAINTENANCE DEPARTMENT TECHNICIAN, CMP ####[facility] [address] [place], [place] [address]Dr. Fartuncristy Portillo Calcium [Mass/Vol] 8.5 mg/dL Normal 8.5-10.1 [facility] Comment on above: Performed By: #### B MAINTENANCE DEPARTMENT TECHNICIAN, CMP ####[facility] [address] [place], [place] [address]Dr. Fartuncristy Portillo Chloride [Moles/Vol] 102 mmol/L Normal 98-107 [facility] Comment on above: Performed By: #### B MAINTENANCE DEPARTMENT TECHNICIAN, CMP ####[facility] [address] [place], [place] [address]Dr. Kasia Nath CO2 [Moles/Vol] 30.2 mmol/L Normal 21.0-32.0 [facility] Comment on above: Performed By: #### B MAINTENANCE DEPARTMENT TECHNICIAN, CMP ####[facility] [address] [place], [place] [address]Dr. Kasia Nath Creatinine [Mass/Vol] 0.94 mg/dL Normal 0.55-1.[address] [facility] Comment on above: Performed By: #### B MAINTENANCE DEPARTMENT TECHNICIAN, CMP ####[facility] [address] [address]Dr. Kasia Nath EGFR-AF CANADIAN >60 Normal >=60 [facility] Comment on above: Performed By: #### B MAINTENANCE DEPARTMENT TECHNICIAN, CMP ####[facility] [address] [id number]. Kasia Nath EGFR-NON AF CANADIAN 58 mL/min/1.73m2 Critically low >=[address] [facility] Comment on above: Performed By: #### B MAINTENANCE DEPARTMENT TECHNICIAN, CMP ####[facility] [address] [place], [place] [address]Dr. Kasia Nath Globulin (S) [Mass/Vol] 4.0 g/dL Normal [facility] Comment on above: Performed By: #### B MAINTENANCE DEPARTMENT TECHNICIAN, CMP ####[facility] [address] [place], [place] [address]Dr. Kasia Nath Glucose [Mass/Vol] 150 mg/dL Critically high 74-106 [facility] Comment on above: Performed By: #### B MAINTENANCE DEPARTMENT TECHNICIAN, CMP ####[facility] [address] [place], [place] [address]Dr. Kasia Nath Potassium [Moles/Vol] 3.8 mmol/L Normal 3.5-5.[address] [facility] Comment on above: Performed By: #### B MAINTENANCE DEPARTMENT TECHNICIAN, CMP ####[facility] [address] [place], [place] [address]Dr. Kasia Portillo Protein [Mass/Vol] 6.6 g/dL Normal 6.4-8.2 [facility] Comment on above: Performed By: #### B MAINTENANCE DEPARTMENT TECHNICIAN, CMP ####[facility] [address] [place], [place] [address]Dr. Kasia Nath Sodium [Moles/Vol] 139 mmol/L Normal 136-145 [facility] Comment on above: Performed By: #### B MAINTENANCE DEPARTMENT TECHNICIAN, CMP ####[facility] [address] [place], [place] [address]Dr. Kasia Nath Urea nitrogen [Mass/Vol] 24.0 mg/dL Critically high 7.0-18.[address] [facility] Comment on above: Performed By: #### B MAINTENANCE DEPARTMENT TECHNICIAN, CMP ####[facility] [address] [id number] Nath Urea nitrogen/Creatinine [Mass ratio] 25.5 mg/mg Normal [facility] Comment on above: Performed By: #### B MAINTENANCE DEPARTMENT TECHNICIAN, CMP ####[facility] [address] [id number]. Kasia Nath BNPon 01-01-2023 Natriuretic peptide B (Bld) [Mass/Vol] 1419.0 pg/mL Normal <=1,800.[address] [facility] Comment on above: Performed By: #### B MAINTENANCE DEPARTMENT TECHNICIAN #### [facility] [address] [place] [address] Dr. Kasia Nath CARDIAC EMERY 3-6on 3 CK [Catalytic activity/Vol] 80 U/L Normal 26-[address] [facility] Comment on above: Performed By: #### P OCGLUC #### [facility] [address] [place] [address] Dr. Kasia Nath CK.MB [Mass/Vol] 1.85 ng/mL Normal <=3.60 [facility] Comment on above: Performed By: #### P OCGLUC #### [facility] [address] [place] [address] Dr. Kasia Nath HSTROP 13.2 pg/mL Normal 4.0-51.3 [facility] Comment on above: Result Comment: CUT- OFF POINTS HAVE BEEN ESTABLISHED BASED ON THE FOURTH UNIVERSAL DEFINITIONS OF MYOCARDIAL INFARCTION. THE UPPER REFERENCE LIMIT (URL) OF TROPONIN, DEFINED THE 99TH PERCENTILE OF cTnI DISTRIBUTION IN A REFERENCE POPULATION, HAS BEEN CONFIRMED THE DECISION THRESHOLD FOR [place] DIAGNOSIS. Performed By: #### P OCGLUC #### [facility] [address] [place] [address] Dr. Kasia Nath CK [Catalytic activity/Vol] 73 U/L Normal 26-192 [facility] Comment on above: Performed By: #### P OCGLUC #### [facility] [address] [place] [address] Dr. Kasia Nath CK.MB [Mass/Vol] 1.71 ng/mL Normal <=3.60 [facility] Comment on above: Performed By: #### P OCGLUC #### [facility] [address] [place] [address] Dr. Kasia Nath HSTROP 13.6 pg/mL Normal 4.0-51.3 [facility] Comment on above: Result Comment: CUT- OFF POINTS HAVE BEEN ESTABLISHED BASED ON THE FOURTH UNIVERSAL DEFINITIONS OF MYOCARDIAL INFARCTION. THE UPPER REFERENCE LIMIT (URL) OF TROPONIN, DEFINED THE 99TH PERCENTILE OF cTnI DISTRIBUTION IN A REFERENCE POPULATION, HAS BEEN CONFIRMED THE DECISION THRESHOLD FOR [place] DIAGNOSIS. Performed By: #### P OCGLUC #### [facility] [address] [place] [address] Dr. Kasia Nath CARDIAC EMERY ADMITon 023 CK [Catalytic activity/Vol] 71 U/L Normal 26-[address] [facility] Comment on above: Performed By: #### C BC #### [facility] [address] [place] [address] Dr. Kasia Nath CK.MB [Mass/Vol] 1.69 ng/mL Normal <=3.60 [facility] Comment on above: Performed By: #### C BC #### [facility] [address] [place] [address] Dr. Kasia Nath HSTROP 13.0 pg/mL Normal 4.0-51.3 [facility] Comment on above: Result Comment: CUT- OFF POINTS HAVE BEEN ESTABLISHED BASED ON THE FOURTH UNIVERSAL DEFINITIONS OF MYOCARDIAL INFARCTION. THE UPPER REFERENCE LIMIT (URL) OF TROPONIN, DEFINED THE 99TH PERCENTILE OF cTnI DISTRIBUTION IN A REFERENCE POPULATION, HAS BEEN CONFIRMED THE DECISION THRESHOLD FOR KS DIAGNOSIS. Performed By: #### C BC #### [facility] [address] [place] [address] Dr. Kasia Nath GRETTA 75 ng/mL Normal 9-82 [facility] Comment on above: Performed By: #### C BC #### [facility] [address] [place] [address] Dr. Kasia Nath CBC AUTO DIFFon 01-01-2023 BASO # 0.1 103/ul Normal 0.0-0.[address] [facility] Comment on above: Performed By: #### C BC #### [facility] [address] [place] [address] Dr. Kasia Nath Basophils/100 WBC (Bld) 1.1 % Normal 0.2-2.0 [facility] Comment on above: Performed By: #### C BC #### [facility] [address] [place] [address] Dr. Kasia Nath EO # 0.2 103/ul Normal 0.0-0.7 [facility] Comment on above: Performed By: #### C BC #### [facility] [address] [place] [address] Dr. Kasia Nath Eosinophils/100 WBC (Bld) 2.9 % Normal 0.9-7.[address] [facility] Comment on above: Performed By: #### C BC #### [facility] [address] [place] [address] Dr. Kasia Nath Erythrocyte distribution width (RBC) [Ratio] 13.8 % Normal 11.0-15.[address] [facility] Comment on above: Performed By: #### C BC #### [facility] [address] [place] [address] Dr. Kasia Nath Hematocrit (Bld) [Volume fraction] 36.2 % Normal 36.0-48.0 [facility] Comment on above: Performed By: #### C BC #### [facility] [address] [place] [address] Dr. Kasia Nath Hemoglobin (Bld) [Mass/Vol] 12.1 g/dL Normal 12.0-16.0 [facility] Comment on above: Performed By: #### C BC #### [facility] [address] [place] [address] Dr. Kasia Nath IG # 0.02 10e3/ul Normal 0.00-0.03 [facility] Comment on above: Performed By: #### C BC #### [facility] [address] [place] [address] Dr. Kasia Nath IG % 0.3 % Normal 0.0-0.[address] [facility] Comment on above: Performed By: #### C BC #### [facility] [address] [place] [address] Dr. Kasia Nath LYMPH # 1.5 103/ul Normal 1.2-3.8 [facility] Comment on above: Performed By: #### C BC #### [facility] [address] [place] [address] Dr. Kasia Nath Lymphocytes/100 WBC (Bld) 19.9 % Critically low 20.5-60.0 [facility] Comment on above: Performed By: #### C BC #### [facility] [address] [place] [address] Dr. Kasia Nath MANUAL DIFF REQ NO Normal [facility] Comment on above: Performed By: #### C BC #### [facility] [address] [place] [address] Dr. Kasia Nath MCH (RBC) [Entitic mass] 29.7 pg Normal 26.7-34.[address] [facility] Comment on above: Performed By: #### C BC #### [facility] [address] [place] [address] Dr. Kasia Nath MCHC (RBC) [Mass/Vol] 33.4 g/dL Normal 29.9-35.2 [facility] Comment on above: Performed By: #### C BC #### [facility] [address] [place] [address] Dr. Kasia Nath MCV (RBC) [Entitic vol] 88.9 fL Normal 81.0-99.0 [facility] Comment on above: Performed By: #### C BC #### [facility] [address] [place] [address] Dr. Kasia Nath MONO # 0.6 103/ul Normal 0.3-0.8 [facility] Comment on above: Performed By: #### C BC #### [facility] [address] [place] [address] Dr. Kasia Nath Monocytes/100 WBC (Bld) 8.0 % Normal 1.7-12.[address] [facility] Comment on above: Performed By: #### C BC #### [facility] [address] [place] [address] Dr. Kasia Nath NEUT # 5.1 103/ul Normal 1.4-6.[address] [facility] Comment on above: Performed By: #### C BC #### [facility] [address] [place] [address] Dr. Kasia Nath Neutrophils/100 WBC (Bld) 67.8 % Normal 43.0-75.[address] [facility] Comment on above: Performed By: #### C BC #### [facility] [address] [place] [address] Dr. Kasia Nath Platelet mean volume (Bld) [Entitic vol] 10.4 fL Normal 9.5-13.[address] [facility] Comment on above: Performed By: #### C BC #### [facility] [address] [place] [address] Dr. Kasia Nath PLT 200 103/ul Normal 150-450 [facility] Comment on above: Performed By: #### C BC #### [facility] [address] [place] [address] Dr. Kasia Nath RBC 4.07 106/ul Critically low 4.20-5.40 [facility] Comment on above: Performed By: #### C BC #### [facility] [address] [place] [address] Dr. Kasia Nath WBC 7.5 103/ul Normal 4.0-11.[address] [facility] Comment on above: Performed By: #### C BC #### [facility] [address] [place] [address] CHEST WO CONon 01-01-2023 CT CHEST WO CON EXAMINATION: CT CHES T WO CON HISTORY: SHORTNESS OF BREATH COMPARISON: Same day chest radiograph TECHNIQUE: CT examination of the chest without IV contrast. Coronal and sagittal reformations were performed. Dose reduction techniques were achieved by using automated exposure control and/or adjustment of mA and/or kV according to patient size and/or use of iterative reconstruction technique. FINDINGS: There are small bilateral pleural effusions. Diffuse interstitial pulmonary edema. Mild, scattered areas of alveolar pulmonary edema appear to be seen as well. There is bibasilar compressive atelectasis without consolidation to specifically suggest pneumonia. The heart is enlarged. Moderate to heavy calcified coronary arteries. Coarse mitral annular calcification. Mildly enlarged pulmonary artery measuring 3.1 cm as may be seen with pulmonary hypertension. No suspicious lymphadenopathy in the chest. No thoracic aortic aneurysm. The aortic arch is moderately calcified. Small sliding hiatal hernia. No pneumothorax. Normal thyroid gland. Limited visualized upper abdomen. Relative increased density of the liver compared to the spleen. Correlate with amiodarone use. Degenerative changes of the thoracic spine. No acute bony findings. IMPRESSION: Cardiomegaly, interstitial pulmonary edema and small bilateral pleural effusions. Moderate to heavy calcified coronary arteries. Regarding coronary artery calcium, there is a growing consensus that reports for nongated low dose chest CT should include assessment of coronary artery calcium. A simple visual assessment, mild, moderate, or heavy coronary artery calcium is comparable to a Agatston scoring and strongly associated with outcomes ( related to coronary artery disease and all cause mortality). Mild is defined as isolated flecks in the coronary distribution (Agatston score <100). Heavy implies continuous or lengthy coronary artery calcium (Agatston score >1000). Moderate is for patients falling between these two extremes (Agatston score 101-1000). https://pubs.rsna.org /doi/abs/10.1148/radi ol.[email or web address] Electronically authenticated by: RENETTA WALLACE Date: 2023-01-01 14:55 Normal [facility] Covid-19 PCR (CVDTB)on 12-14 SARS-CoV-2 (COVID-19) RNA FERN+probe Ql (Unsp spec) Not detected Normal NOT DETECTED [facility] Comment on above: Result Comment: When diagnostic testing is negative, the possibility of a false negative should be considered in the context of a patient's recent exposures and the presence of clinical signs and symptoms consistent with SARS-CoV-2. This test is not yet approved or cleared by the [place] FDA. When there are no FDA-approved or cleared tests available, and other criteria are met, FDA can make tests available under an emergency access mechanism called an Emergency Use Authorization (EUA). The EUA for this test is supported by the [place] of Health and Human Service's declaration that circumstances exist to justify the emergency use of in vitro diagnostics for the detection and/or diagnosis of the virus that causes COVID-19. This EUA will remain in effect for the duration of the COVID-19 declaration justifying emergency of IVDs, unless it is terminated or revoked by the FDA (after which the test may no longer be used). Performed By: #### C [facility] #### [facility] [address] [address] [address] Kasia Nath ECHO LIMITED STUDYon 023 ECHO LIMITED STUDY Patient: SAIMA CALL Exam Date: 01/01/2023 : 1945 Gender:F Ordering : LD GUERRERO . Admission #: [id number] Family : Order #: [id number] CLICK HERE TO VIEW EXAM ECHOCARDIOGRAM REPORT PROCEDURE: CARDIO PULMONARY ECHO LIMITED STUDY INDICATIONS: Shortness of breath COMPARISON: None. DESCRIPTION: Limited ECHOCARDIOGRAM Real-time transthoracic echocardiography with 2D and M-mode performed. QUALITY: Technical quality was good. LEFT VENTRICLE: Normal chamber size. Thickened septal wall. Mild to moderate concentric hypertrophy. Hyperdynamic left ventricular systolic function. LV EF: Calculated left ventricular ejection fraction is 73%. DIASTOLIC: ATRIAL SEPTUM: LEFT ATRIUM: Moderate dilatation. RIGHT ATRIUM: Moderate dilatation. RIGHT VENTRICLE: Normal chamber size. Normal right ventricular systolic function. TRICUSPID VALVE: Normal mobility and thickness. MITRAL VALVE: Normal mobility and thickness. Moderate posterior mitral annular calcification. AORTIC VALVE: Normal trileaflet appearance. There is mild calcification and thickening of the aortic valve leaflets. Normal leaflet mobility. AORTIC ROOT: Normal diameter and appearance. PULMONIC VALVE: Normal thickness and mobility. PERICARDIUM: No evidence of pericardial effusion. IVC: Not well visualized. PLEURA: CONCLUSION: 1. Left ventricular systolic function is hyperdynamic. LVEF is 70 to 75%. 2. Mild to moderate concentric left ventricular hypertrophy. 3. Normal right ventricular size and systolic function. 4. Normal mobility of the aortic valve and mitral valve leaflets. 5. No pericardial effusion. 6. Limited study performed with no Doppler interrogation as requested. Adult Echocardiography Procedure Report Left Ventricle Left Atrium Mitral Valve Right Ventricle Aorta Aortic Valve Tricuspid Valve Pulmonic Valve Right Atrium Dictated by: Rica Medrano M.D. on 01/01/2023 at 13:15 Approved by: Rica Medrano M.D. on 01/01/2023 at 13:[address] [facility] GLYCOHEMOGLOBIN A1Con 2022 ADA RECOMMENDATION SEE BELOW Normal [facility] Comment on above: Result Comment: ADA RECOMMENDED LIMIT 4.0 - 6.0 ADA THERAPEUTIC TARGET < 7.0 ACTION SUGGESTED > 7.0 Performed By: #### P OCGLUC #### [facility] [address] [address] [address] Kasia Nath Glucose [Mass/Vol] 318 mg/dL Normal [facility] Comment on above: Performed By: #### P OCGLUC #### [facility] [address] [address] [address] Kasia Nath HbA1c (Bld) [Mass fraction] 12.7 % Critically high 4.5-6.[address] [facility] Comment on above: Performed By: #### P OCGLUC #### [facility] [address] [address] [address] Kasia Nath POINT OF CARE GLUCOSEon 12-14 Glucose [Mass/Vol] 162 mg/dL Critically high [address] [place] [address] Comment on above: Performed By: #### P OCGLUC ####[facility] [id number] [address]Dr. Kasia Nath Glucose [Mass/Vol] 213 mg/dL Critically high [facility] Comment on above: Performed By: #### P OCGLUC ####[facility] [id number] [id number]. Kasia Nath Glucose [Mass/Vol] 248 mg/dL Critically high [address] [place] [address] Comment on above: Performed By: #### P OCGLUC #### [facility] [address] [address] [address] Kasia Nath PROF CHEM 8 (BAS METB)on Anion gap [Moles/Vol] 11.8 mmol/L Normal [facility] Comment on above: Performed By: #### C BC #### [facility] [address] [address] [address] Kasia Nath Calcium [Mass/Vol] 8.4 mg/dL Critically low 8.5-10.1 Th [facility] Comment on above: Performed By: #### C BC #### [facility] [address] [address] [address] Kasia Nath Chloride [Moles/Vol] 102 mmol/L Normal 98-[address] [facility] Comment on above: Performed By: #### C BC #### [facility] [address] [address] [address] Kasia Nath CO2 [Moles/Vol] 28.4 mmol/L Normal 21.0-32.0 [facility] Comment on above: Performed By: #### C BC #### [facility] [address] [address] [address] Kasia Nath Creatinine [Mass/Vol] 1.09 mg/dL Critically high 0.55-1.[address] [facility] Comment on above: Performed By: #### C BC #### [facility] [address] [address] [address] Kasia Nath EGFR-AF CANADIAN 59 mL/min/1.73m2 Critically low >=[address] [facility] Comment on above: Performed By: #### C BC #### [facility] [address] [address] [address] Kasia Nath EGFR-NON AF CANADIAN 49 mL/min/1.73m2 Critically low >=[address] [facility] Comment on above: Performed By: #### C BC #### [facility] [address] [address] [address] Kasia Nath Glucose [Mass/Vol] 247 mg/dL Critically high 74-106 [facility] Comment on above: Performed By: #### C BC #### [facility] [address] [address] [address] Kasia Nath Potassium [Moles/Vol] 4.2 mmol/L Normal 3.5-5.[address] [facility] Comment on above: Performed By: #### C BC #### [facility] [address] [place], [place] [address] Dr. Kasia Nath Sodium [Moles/Vol] 138 mmol/L Normal 136-145 [facility] Comment on above: Performed By: #### C BC #### [facility] [address] [place], [place] [address] Dr. Kasia Nath Urea nitrogen [Mass/Vol] 28.0 mg/dL Critically high 7.0-18.[address] [facility] Comment on above: Performed By: #### C BC #### [facility] [address] [address] [address] Kasia Nath Urea nitrogen/Creatinine [Mass ratio] 25.7 mg/mg Normal [facility] Comment on above: Performed By: #### C BC #### [facility] [address] [address] [address] Kasia Nath XR CHEST 1 Von 01-01-2023 XR CHEST 1 V EXAM: XR CHEST 1 V HISTORY: SHORTNESS OF BREATH COMPARISON: Chest radiographs dated 08/26/2019. TECHNIQUE: One view of the chest was obtained. FINDINGS: The cardiac silhouette is mildly enlarged though stable in size. Aortic atherosclerotic disease is seen. There is interstitial prominence. There are small bilateral pleural effusions with bibasilar opacities. No acute osseous abnormality is seen. IMPRESSION: 1. Stable enlarged cardiac silhouette with small bilateral pleural effusions, suspected interstitial edema, and bibasilar opacities which could represent atelectasis, aspiration changes, and/or pneumonia. Electronically authenticated by: Miranda ALVAREZ Date: 2023-01-01 05:[address] [facility] ECHOCARDIO M/2D COMPLETEon 1 11-15-2021 ECHOCARDIO M/2D COMPLETE Patient: JOE CALL Exam Date: 09/15/2022 : 1945 Gender:F Ordering : [facility] Admission #: [id number] Family : DR SHANTEL STEVEN M.D. Order #: [id number] CLICK HERE TO VIEW EXAM ECHOCARDIOGRAM REPORT PROCEDURE: CARDIO PULMONARY ECHOCARDIO M/2D COMP INDICATIONS: Diastolic dysfunction, hypertension, atrial fibrillation, diabetes COMPARISON: None. DESCRIPTION: COMPLETE ECHOCARDIOGRAM Real-time transthoracic echocardiography with 2D, M-mode, spectral and color flow Doppler performed. QUALITY: Technical quality was good. 65 255# BP 144/88 LEFT VENTRICLE: Normal chamber size. Mild concentric left ventricular hypertrophy. Normal systolic function. LV EF: Normal left ventricular ejection fraction, (>55%). DIASTOLIC: Grade II diastolic dysfunction. ATRIAL SEPTUM: Visually appears intact. LEFT ATRIUM: Moderate dilatation. RIGHT ATRIUM: Moderate dilatation. RIGHT VENTRICLE: Mild dilatation. Normal systolic function. TRICUSPID VALVE: Normal mobility and thickness. No stenosis with trivial regurgitation. Unable to assess right-sided pressures due to lack of measurable tricuspid regurgitation. MITRAL VALVE: Normal mobility and thickness. No significant mitral valve stenosis. Moderate mitral annular calcification. Trivial mitral regurgitation. AORTIC VALVE: Normal trileaflet appearance. Mildly calcified aortic valve. Normal leaflet mobility. No evidence of aortic valve stenosis. Trivial aortic regurgitation. AORTIC ROOT: Normal diameter and appearance. PULMONIC VALVE: Normal thickness and mobility. No stenosis. Trivial regurgitation. PERICARDIUM: No evidence of pericardial effusion. IVC: Collapses with inspirations. PLEURA: CONCLUSION: 1. Mild concentric left ventricular hypertrophy. Normal left ventricular systolic function. LVEF is 65%. 2. Mild right ventricular dilation with normal systolic function. 3. Moderate biatrial dilatation. 4. No significant valvular dysfunction. 5. Unable to assess right-sided pressures due to lack of measurable tricuspid regurgitation. 6. No pericardial effusion. Adult Echocardiography Procedure Report Left Ventricle LVEDD (3.7 - 5.6 cm): 4.32 cm LVESD (2.2 - 4.0 cm): 2.28 cm LVIVS thickness (0.6 - 1.2 cm): 1.13 cm LVPW thickness (0.5 - 1.0 cm): 1.07 cm e': 0.07 m/s E - e': 15.22 LVOT Max Gradient: 6.46 mm[Hg] Peak Velocity (LVOT): 1.27 m/s Mean Velocity (LVOT): 0.93 m/s LVOT Diameter 2.11 cm Left Ventricular Ejection Fraction: 65 % Left Atrium LA Volume Index (2D A2C): 99.95 ml, 99.95 ml Left Atrium Systolic Dimension: 4.67 cm Mitral Valve MV E to A Ratio: 0.80 Mitral Valve A-Wave Peak Velocity: 1.28 m/s Mitral Valve E-Wave Peak Velocity: 1.03 m/s Right Ventricle Aorta AO Root Diam: 3.30 cm Aortic Valve AoV Area (Peak Jean Paul): 2.68 cm2, 2.68 cm2 AoV Area (VTI): 2.75 cm2, 2.75 cm2 Peak Velocity(Antegrade Flow): 1.65 m/s Peak Gradient(Antegrade Flow): 10.92 mm[Hg] Mean Velocity(Antegrade Flow): 1.12 m/s Mean Gradient(Antegrade Flow): 5.79 mm[Hg] Velocity Time Integral: 45.14 cm Tricuspid Valve Peak Velocity (Regurgitant Flow): 5.49 m/s Peak Velocity: 0.65 m/s Pulmonic Valve Peak Velocity: 1.16 m/s, 1.23 m/s Peak Gradient: 5.41 mm[Hg], 6.07 mm[Hg] Right Atrium Right Atrium Systolic Pressure: 58.89 ml, 58.89 ml Dictated by: Rica Medrano M.D. on 09/15/2022 at 18:09 Approved by: Rica Medrano M.D. on 09/15/2022 at 18:17 Normal [facility] GI PANEL (PCR)on 05-02-2022 Adenovirus F 40/41 Not detected Normal NOT DETECTED [facility] Comment on above: Performed By: #### P OCGLUC #### [facility] [address] [place] [address] Dr. Kasia Nath Astrovirus Not detected Normal NOT DETECTED [facility] Comment on above: Performed By: #### P OCGLUC #### [facility] [address] [place] [address] Dr. Kasia Nath C. Diff toxin A/B Not detected Normal NOT DETECTED [facility] Comment on above: Performed By: #### P OCGLUC #### [facility] [address] [place] [address] Dr. Kasia Nath Campylobacter Not detected Normal NOT DETECTED [facility] Comment on above: Performed By: #### P OCGLUC #### [facility] [address] [place] [address] Dr. Kasia Nath Cryptosporidium Not detected Normal NOT DETECTED [facility] Comment on above: Performed By: #### P OCGLUC #### [facility] [address] [place] [address] Dr. Kasia Nath Cyclos. Cayetanensis Not detected Normal NOT DETECTED [facility] Comment on above: Performed By: #### P OCGLUC #### [facility] [address] [place] [address] Dr. Kasia Nath E. Coli O157 Not Applicable Normal Not Applicable [facility] Comment on above: Performed By: #### P OCGLUC #### [facility] [address] [place] [address] Dr. Kasia Nath E. histolytica Not detected Normal NOT DETECTED [facility] Comment on above: Performed By: #### P OCGLUC #### [facility] [address] [place] [address] Dr. Kasia Nath EAEC Not detected Normal NOT DETECTED [facility] Comment on above: Performed By: #### P OCGLUC #### [facility] [address] [place] [address] Dr. Kasia Nath EIEC Not detected Normal NOT DETECTED [facility] Comment on above: Performed By: #### P OCGLUC #### [facility] [address] [place] [address] Dr. Kasia Nath EPEC Detected Abnormal NOT DETECTED [facility] Comment on above: Performed By: #### P OCGLUC #### [facility] [address] [place] [address] Dr. Kasia Nath ETEC Not detected Normal NOT DETECTED [facility] Comment on above: Performed By: #### P OCGLUC #### [facility] [address] [place] [address] Dr. Kasia Nath G. Lamblia Not detected Normal NOT DETECTED [facility] Comment on above: Performed By: #### P OCGLUC #### [facility] [address] [place] [address] Dr. Kasia Nath GIPANEL CONTROLS PASSED Normal [facility] Comment on above: Performed By: #### P OCGLUC #### [facility] [address] [address] [address] Kasia [facility] HEADER GI PANEL BACTERIA Normal T [facility] Comment on above: Performed By: #### P OCGLUC #### [facility] [address] [address] [address] Kasia GE ECOLI GI PANEL DIARRHEAGENIC E.COLI / SHIGELLA Normal [facility] Comment on above: Performed By: #### P OCGLUC #### [facility] [address] [address] [address] Kasia GE INFO SEE BELOW [facility] Comment on above: Result Comment: EAEC - Enteroaggregative E. Coli EPEC- Enteropathogenic E. Coli ETEC- Enterotoxigenic E. Coli lt/st STEC- Shigella-like toxin-producing E. Coli stx1/stx2 EIEC- Shigella/Enteroinvasive E. Coli Performed By: #### P OCGLUC #### [facility] [address] [address] [address] Kasia GE PARASITES GI PANEL PARASITES Normal [facility] Comment on above: Performed By: #### P OCGLUC #### [facility] [address] [address] [address] Kasia GE VIRUS GI PANEL VIRUSES Normal [facility] Comment on above: Performed By: #### P OCGLUC #### [facility] [address] [address] [address] Kasia Nath Norovirus GI/GII Not detected Normal NOT DETECTED [facility] Comment on above: Performed By: #### P OCGLUC #### [facility] [address] [address] [address] Kasia Nath P. Shigelloides Not detected Normal NOT DETECTED [facility] Comment on above: Performed By: #### P OCGLUC #### [facility] [address] [address] [address] Kasia Nath Rotavirus A Not detected Normal NOT DETECTED The [facility] Comment on above: Performed By: #### P OCGLUC #### [facility] [address] [address] [address] Kasia Nath Salmonella Not detected Normal NOT DETECTED [facility] Comment on above: Performed By: #### P OCGLUC #### [facility] [address] [address] [address] Kasia Nath Sapovirus Not detected Normal NOT DETECTED [facility] Comment on above: Performed By: #### P OCGLUC #### [facility] [address] [address] [address] Kasia Nath STEC Not detected Normal NOT DETECTED [facility] Comment on above: Performed By: #### P OCGLUC #### [facility] [address] [address] [address] Kasia Nath Vibrio Not detected Normal NOT DETECTED [facility] Comment on above: Performed By: #### P OCGLUC #### [facility] [address] [place] [address] Dr. Kasia Nath Vibrio Cholera Not detected Normal NOT DETECTED [facility] Comment on above: Performed By: #### P OCGLUC #### [facility] [address] [address] [address] Kasia Nath Y. Enterocolitica Not detected Normal NOT DETECTED [facility] Comment on above: Performed By: #### P OCGLUC #### [facility] [address] [place] [address] Dr. Kasia Nath OCC BLD IMMUNO SCREENon 04-13 OCCULT BLOOD Negative Normal NEGATIVE [facility] Comment on above: Performed By: #### C BC #### [facility] [address] [place] [address] Dr. Kasia Nath XR knee BI 4Von 08-25-2021 XR knee BI 4V [facility] [employer] Other XR knee BI 4V [facility] [employer] Other XR knee BI 4V [address] [place] [address] [employer] Other XR knee BI 4V [address] [employer] Other XR knee BI 4V XRay Report [place] [employer] Other XR knee BI 4V Signed [employer] Other XR knee BI 4V Patient: Joe Call MR#: [id number] [employer] Other XR knee BI 4V 0 [employer] Other XR knee BI 4V : 1945 Acct:[id number] [employer] Other XR knee BI 4V Age/Sex: 76 / F ADM Date: 08/25/21 [employer] Other XR knee BI 4V Loc: SOXD Room: Type : [facility] [employer] Other XR knee BI 4V Attending Dr: Akbar Cui II, MD [employer] Other XR knee BI 4V Ordering Provider: Akbar Cui MD [employer] Other XR knee BI 4V Date of Service: 08/25/21 [employer] Other XR knee BI 4V XR/XR knee BI 4V: Pain in right knee;Pain in left knee [employer] Other XR knee BI 4V Copies to: Akbar Cui MD [employer] Other XR knee BI 4V XR knee BI 4V 08/25/2021 1:32 PM [employer] Other XR knee BI 4V SIGNS AND SYMPTOMS: Bilateral knee pain with decreased range of motion, weakness [employer] Other XR knee BI 4V PROTOCOL: Frontal, lateral, and sunrise views of the bilateral knees [employer] Other XR knee BI 4V COMPARISON: None [employer] Other XR knee BI 4V FINDINGS: [employer] Other XR knee BI 4V There is mild narrowing of the medial weightbearing joint spaces. There is mild patellofemoral [employer] Other XR knee BI 4V joint space loss. There is spurring of the poles of the patella bilaterally. There is mild lateral [employer] Other XR knee BI 4V patellar subluxation bilaterally. There is no evidence of acute displaced fracture. Well-corticated [employer] Other XR knee BI 4V ossific structures o r separate from the right medial weightbearing joint space. This may represent a [employer] Other XR knee BI 4V calcified loose bodies. [employer] Other XR knee BI 4V XR/XR knee BI 4V [employer] Other XR knee BI 4V IMPRESSION: [employer] Other XR knee BI 4V Degenerative changes are noted are noted bilaterally, as above. [employer] Other XR knee BI 4V Well-corticated ossific structures or separate from the right medial weightbearing joint space. This [employer] Other XR knee BI 4V may represent a calcified loose bodies. [employer] Other XR knee BI 4V No acute displaced fracture. [employer] Other XR knee BI 4V There is mild latera l subluxation of the patella within the patellofemoral joint space bilaterally. [employer] Other XR knee BI 4V Impression dictated by: Emery Lobo M.D.08/25/2021 2:51 PM [employer] Other XR knee BI 4V Dictation Location: [address] [place] [address] [employer] Other XR knee BI 4V Transcribed By: RAFAEL 08/25/21 1451 [employer] Other XR knee BI 4V Dictated By: Emery Lobo II, MD 08/25/21 1441 [employer] Other XR knee BI 4V Signed By: [employer] Other XR knee BI 4V 08/25/21 145 [employer] [facility] [employer] Other XR pelvis 1-2Von 08-25-2021 XR pelvis 1-2V XR/XR pelvis 1-2V: Pain in right knee;Pain in left knee [employer] Other XR pelvis 1-2V XR pelvis 1-2V 08/25/2021 1:32 PM [employer] Other XR pelvis 1-2V SIGNS AND SYMPTOMS: Bilateral generalized knee pain, limited range of motion with weakness [employer] Other XR pelvis 1-2V PROTOCOL: Frontal radiograph of the pelvis [employer] Other XR pelvis 1-2V There is mild narrowing of the weightbearing joint spaces. Mild degenerative changes are noted in [employer] Other XR pelvis 1-2V the symphysis pubis. There is no evidence of fracture or dislocation. Vascular calcifications are [employer] Other XR pelvis 1-2V present in the pelvis. [employer] Other XR pelvis 1-2V XR/XR pelvis 1-2V [employer] Other XR pelvis 1-2V No fracture or dislocation. [employer] Other XR pelvis 1-2V Mild degenerative changes are noted in the joint space of the hips. [employer] Other XR pelvis 1-2V Impression dictated by: Emery Lobo M.D.08/25/2021 2:54 PM [employer] Other XR pelvis 1-2V Transcribed By: [facility] 08/25/21 1454 [employer] Other XR pelvis 1-2V Dictated By: Emery Lobo II, MD 08/25/21 [facility] [employer] Other XR pelvis 1-2V 08/25/211453 [employer] Other Vital Signs Date Time Vital Sign Value Performing Clinician Facility 02-15-2024 14:18-0400 Body height 165.[address] [facility] 02-15-2024 14:18-0400 Body mass index (BMI) [Ratio] 38.6 kg/m2 [facility] 02-15-2024 14:18-0400 Body weight 105.[address] [facility] 02-15-2024 14:18-0400 Diastolic blood pressure 66 mm[Hg] [facility] 02-15-2024 14:18-0400 Heart rate 55 /min [facility] 02-15-2024 14:18-0400 Systolic blood pressure 114 mm[Hg] [facility] 01-18-2024 10:23-0500 Body height 165.[address] [facility] 01-18-2024 10:23-0500 Body mass index (BMI) [Ratio] 43.2 kg/m2 [facility] 01-18-2024 10:23-0500 Body weight 117.[address] [facility] 01-18-2024 10:23-0500 Diastolic blood pressure 70 mm[Hg] [facility] 01-18-2024 10:23-0500 Heart rate 98 /min [facility] 01-18-2024 10:23-0500 SaO2% (BldA) [Mass fraction] 65 % [facility] 01-18-2024 10:23-0500 Systolic blood pressure 110 mm[Hg] [facility] 10-23-2023 16:00-0500 Body height 165.1 cm Jaleesa Vanessa Other [employer] Other 10-23-2023 16:00-0500 Body mass index (BMI) [Ratio] 44.63 kg/m2 Jaleesa Kochs Other [employer] Other 10-23-2023 16:00-0500 Body temperature 96.8 [degF] Jaleesa Kochs Other [employer] Other 10-23-2023 16:00-0500 Body weight 121.66 kg Jaleesa Vanessa Other [employer] Other 10-23-2023 16:00-0500 Diastolic blood pressure 60 mm[Hg] Jaleesa Kochs Other [employer] Other 10-23-2023 16:00-0500 Respiratory rate 18 /min Jaleesa Vanessa Other [employer] Other 10-23-2023 16:00-0500 SaO2% (BldA) [Mass fraction] 99 % Jaleesa Vanessa Other [employer] Other 10-23-2023 16:00-0500 Systolic blood pressure 124 mm[Hg] Jaleesa Vanessa Other [employer] Other 10-18-2023 13:45-0500 Body height 165.1 cm Shantel Steven Other [employer] Other 10-18-2023 13:45-0500 Body mass index (BMI) [Ratio] 44.86 kg/m2 Shantel Steven Other [employer] Other 10-18-2023 13:45-0500 Body temperature 97.3 [degF] Shantel Steevn Other [employer] Other 10-18-2023 13:45-0500 Body weight 122.29 kg Shantel Steven Other [employer] Other 10-18-2023 13:45-0500 Diastolic blood pressure 84 mm[Hg] Shantel Steven Other [employer] Other 10-18-2023 13:45-0500 SaO2% (BldA) [Mass fraction] 97 % Shantel Steven Other [employer] Other 10-18-2023 13:45-0500 Systolic blood pressure 132 mm[Hg] Shantel Steven Other [employer] Other 09-04-2023 14:00-0400 Body height 165.1 cm Shantel Steven Other [employer] Other 09-04-2023 14:00-0400 Body mass index (BMI) [Ratio] 43.06 kg/m2 Shantel Steven Other [employer] Other 09-04-2023 14:00-0400 Body weight 117.39 kg Shantel Steven Other [employer] Other 09-04-2023 14:00-0400 Diastolic blood pressure 69 mm[Hg] Shantel Steven Other [employer] Other 09-04-2023 14:00-0400 Systolic blood pressure 127 mm[Hg] Shantel Steven Other [employer] Other 07-17-2023 10:00-0400 Body height 165.1 cm Shantel Steven Other [employer] Other 07-17-2023 10:00-0400 Body mass index (BMI) [Ratio] 43.03 kg/m2 Shantel Steven Other [employer] Other 07-17-2023 10:00-0400 Body weight 117.3 kg Shantel tSeven Other [employer] Other 07-17-2023 10:00-0400 Diastolic blood pressure 76 mm[Hg] Shantel Steven Other [employer] Other 07-17-2023 10:00-0400 Systolic blood pressure 164 mm[Hg] Shantel Steven Other [employer] Other 04-30-2023 14:30-0400 Body height 165.1 cm Shantel Steven Other [employer] Other 04-30-2023 14:30-0400 Body mass index (BMI) [Ratio] 43.43 kg/m2 Shantel Steven Other [employer] Other 04-30-2023 14:30-0400 Body weight 118.39 kg Shantel Steven Other [employer] Other 04-30-2023 14:30-0400 Diastolic blood pressure 75 mm[Hg] Shantel Steven Other [employer] Other 04-30-2023 14:30-0400 Systolic blood pressure 135 mm[Hg] Shantel Steven Other [employer] Other 03-09-2023 12:15-0400 Body height 165.1 cm Shantel Steven Other [employer] Other 03-09-2023 12:15-0400 Body mass index (BMI) [Ratio] 43.59 kg/m2 Shantel Steven Other [employer] Other 03-09-2023 12:15-0400 Body weight 118.84 kg Shantel Steven Other [employer] Other 03-09-2023 12:15-0400 Diastolic blood pressure 82 mm[Hg] Shantel Steven Other [employer] Other 03-09-2023 12:15-0400 SaO2% (BldA) [Mass fraction] 97 % Shantel Steven Other [employer] Other 03-09-2023 12:15-0400 Systolic blood pressure 130 mm[Hg] Shantel Steven Other [employer] Other 02-20-2023 10:00-0400 Body height 165.1 cm Shantel Steven Other [employer] Other 02-20-2023 10:00-0400 Body mass index (BMI) [Ratio] 41.93 kg/m2 Shantel Steven Other [employer] Other 02-20-2023 10:00-0400 Body weight 114.31 kg Shantel Steven Other [employer] Other 02-20-2023 10:00-0400 Diastolic blood pressure 84 mm[Hg] Shantel Steven Other [employer] Other 02-20-2023 10:00-0400 Systolic blood pressure 132 mm[Hg] Shantel Steven Other [employer] Other 08-04-2022 13:33-0400 Blood Pressure Location Bin SORENSON [facility] [place] 08-04-2022 13:33-0400 Diastolic blood pressure 88 mm[Hg] Bin SORENSON [facility] [place] 08-04-2022 13:33-0400 Heart rate 76 /min Bin SORENSON [facility] [place] 08-04-2022 13:33-0400 Respiratory rate 16 /min Bin SORENSON [facility] [place] 08-04-2022 13:33-0400 Systolic blood pressure 130 mm[Hg] Bin SORENSON [facility] [place] 08-25-2021 14:30-0400 Body height 165.1 cm [employer] Other [employer] Other 08-25-2021 14:30-0400 Body mass index (BMI) [Ratio] 43.26 kg/m2 [employer] Other [employer] Other 08-25-2021 14:30-0400 Body weight 117.94 kg [employer] Other [employer] Other Encounters Encounter Date Encounter Type Care Provider Facility Start: 03-13-2024 End: 03-13-2024 ambulatory MD Shantel Steven Work Phone: [facility] Work Phone: Start: 03-13-2024 End: 03-13-2024 Patient encounter procedure MD Shantel Steven Work Phone: [facility] [address] Work Phone: Start: 03-07-2024 End: 03-07-2024 ambulatory [facility] Start: 02-19-2024 ambulatory Facility:J[facility] Start: 02-15-2024 End: 02-15-2024 ambulatory [facility] Work Phone: Start: 02-15-2024 End: 02-15-2024 Patient encounter procedure [facility] Work Phone: Start: 01-29-2024 Non-patient / Non-visit [facility] Work Phone: Start: 01-24-2024 Non-patient / Non-visit [facility] Work Phone: Start: 01-22-2024 Non-patient / Non-visit [facility] Work Phone: Start: 01-18-2024 End: 01-18-2024 Patient encounter procedure [facility] Work Phone: Start: 01-15-2024 Non-patient / Non-visit [facility] Work Phone: Start: 01-04-2024 Non-patient / Non-visit [facility] Work Phone: Start: 12-18-2023 End: 12-18-2023 ambulatory Shantel Steven Other [employer] Other Start: 12-18-2023 Telephone encounter Shantel Steven [facility] Start: 11-19-2023 End: 11-19-2023 ambulatory Shantel Steven Other [employer] Other Start: 11-19-2023 Telephone encounter Shantel Steven [facility] Start: 10-23-2023 End: 10-23-2023 ambulatory Jaleesa Vanessa Other [employer] Other Start: 10-23-2023 Office outpatient ne w 30 minutes Aziz Bakloves [facility] [place] Start: 10-22-2023 End: 10-22-2023 ambulatory Shantel Steven Other [employer] Other Start: 10-22-2023 Telephone encounter Shantel Steven [facility] Start: 10-18-2023 End: 10-18-2023 ambulatory Shantel Steven Other [employer] Other Start: 10-18-2023 Office outpatient vi sit 15 minutes Shantel Steven [facility] Start: 09-07-2023 End: 09-07-2023 ambulatory Shantel Steven Other [employer] Other Start: 09-07-2023 Telephone encounter Shantel Steven [facility] Start: 09-04-2023 End: 09-04-2023 ambulatory Shantel Steven Other [employer] Other Start: 09-04-2023 Office outpatient vi sit 25 minutes Shantel Steven [facility] Start: 08-23-2023 End: 08-23-2023 ambulatory Shantel Steven Other [employer] Other Start: 08-23-2023 Telephone encounter Shantel Steven [facility] Start: 08-17-2023 End: 08-17-2023 ambulatory [facility] Start: 07-23-2023 Telephone encounter Shantel Tenisha [facility] Start: 07-23-2023 End: 07-23-2023 ambulatory [facility] [employer] Other Start: 07-17-2023 End: 07-17-2023 ambulatory Shantel Steven Other [employer] Other Start: 07-17-2023 Office outpatient vi sit 25 minutes Shantel Steven [facility] Start: 05-30-2023 End: 05-30-2023 ambulatory Shantel Tenisha Other [employer] Other Start: 05-30-2023 Telephone encounter Shantel Tenisha [facility] Start: 05-22-2023 End: 05-22-2023 ambulatory Shantel Steven Other [employer] Other Start: 05-22-2023 Telephone encounter Shantel Tenisha [facility] Start: 05-16-2023 End: 05-16-2023 ambulatory Shantel Steven Other [employer] Other Start: 05-16-2023 Telephone encounter Shantel Steven [facility] Start: 05-07-2023 End: 05-07-2023 ambulatory Shantel Steven Other [employer] Other Start: 05-07-2023 Telephone encounter Shantel Steven [facility] Start: 04-30-2023 End: 04-30-2023 ambulatory Shantel Steven Other [employer] Other Start: 04-30-2023 Office outpatient vi sit 25 minutes Shantel Steven [facility] Start: 04-25-2023 End: 04-25-2023 ambulatory RICA MEDRANO [employer] Other Start: 04-25-2023 Telephone encounter Shantel Steven [facility] Start: 04-12-2023 End: 04-12-2023 ambulatory Shantel Steven Other [employer] Other Start: 04-12-2023 Telephone encounter Shantel Steven [facility] Start: 03-09-2023 End: 03-09-2023 ambulatory Shantel Steven Other [employer] Other Start: 03-09-2023 Office outpatient vi sit 15 minutes Shantel Steven [facility] Start: 03-07-2023 End: 03-07-2023 ambulatory Shantel Steven Other [employer] Other Start: 03-07-2023 Telephone encounter Shantel Steven [facility] Start: 03-06-2023 End: 03-06-[address] SHANTEL STEVEN Facility: Start: 03-05-2023 End: 03-05-2023 ambulatory Shantel Steven Other [employer] Other Start: 03-05-2023 Telephone encounter Shantel Steven [facility] Start: 02-26-2023 End: 02-26-2023 ambulatory Shantel Steven Other [employer] Other Start: 02-26-2023 Telephone encounter Shantel Steven [facility] Start: 02-24-2023 End: 02-24-[address] SHANTEL STEVEN Facility:[facility] Start: 02-23-2023 End: 02-23-2023 ambulatory Shantel Steven Other [employer] Other Start: 02-23-2023 Telephone encounter Shantel Steven [facility] Start: 02-20-2023 End: 02-20-2023 ambulatory Shantel Steven Other [employer] Other Start: 02-20-2023 Transitional care luz cabral [facility] 14 day discharge Shantel Steven [facility] Start: 02-16-2023 End: 02-16-2023 ambulatory Shantel Steven Other [employer] Other Start: 02-16-2023 Telephone encounter Shantel Steven [facility] Start: 02-13-2023 End: 02-14-[address] SHANTEL STEVEN Facility:[facility] Start: 02-02-2023 End: 02-02-2023 ambulatory Shantel Steven Other [employer] Other Start: 02-02-2023 Telephone encounter Shantel Steven [facility] Start: 01-16-2023 End: 01-17-[address] DOCTOR CARMONA Facility:[facility] Start: 01-05-2023 End: 01-05-2023 ambulatory BIN ROJAS Facility:[facility] Start: 01-01-2023 End: 01-02-2023 ambulatory ANALISA WHYTE Facility:[facility] Start: 11-29-2022 End: 11-29-2022 ambulatory Shantel Steven Other [employer] Other Start: 11-29-2022 Telephone encounter Shantel Steven [facility] Start: 11-27-2022 End: 11-27-2022 ambulatory Shantel Steven Other [employer] Other Start: 11-27-2022 Telephone encounter Shantel Steven [facility] Start: 11-24-2022 End: 11-24-2022 ambulatory Shantel Steven Other [employer] Other Start: 11-24-2022 Telephone encounter Shantel Steven [facility] Start: 11-06-2022 ambulatory YAMEL NAWAF Facility :[facility] Start: 09-15-2022 End: 09-16-[address] SHANTEL STEVEN Facility:[facility] Start: 08-04-2022 End: 08-04-2022 Patient encounter procedure Bin Butts NILL [facility] Nill/[facility]aid [place] Start: 05-02-2022 End: 05-02-[address] SHANTEL STEVEN Facility:[facility] Start: 08-25-2021 Office outpatient ne w 45 minutes Akbar Cui II [facility] Start: 08-09-2017 End: 08-12-2017 Ambulatory PROVIDER UNKNOWN Facility:[facility] Procedures Date Procedure Procedure Detail Performing Clinician Start: 03-13-2024 MR lumbar spine wo con MD Shantel Steven Work Phone: Start: 03-13-2024 MRI of cervical spine without contrast MD Shantel Steven Work Phone: Start: 03-13-2024 XR pre/post mri xray MD Shantel Steven Work Phone: Start: 03-12-2019 Colonoscopy Bin NILL Start: 11-12-1992 Bilateral mastectomy Bin NILL Cardiac catheterization [place] ael NILL Cholecystectomy Bin NILL Colonoscopy Bin NILL Decompression laminectomy [place] chael NILL Esophagogastroduodenoscopy M ichmonse NILL Excision of iliac lymph nodes Bin SORENSON Facetectomy of vertebra [place] SORENSON Foraminotomy Bin POPL History of operative procedure on shoulder Bin SORENSON History of sigmoid colectomy Bin SORENSON Total abdominal hyst erectomy with bilateral salpingo-oophorectomy Bin POPL Plan of Treatment Date Care Activity Detail Author Start: 02-15-2024 Patient referral [facility] Work Phone: Patient referral [facility] Work Phone: Immunizations Immunization Date Immunization Notes Care Provider Fa cilitrina 01-18-2024 Pneumococcal Conjugate Vaccine, 20 valent [facility] 09-04-2023 influenza, high dose seasonal, preservative-free Shantel Steven Other [employer] [facility] [employer] Other 09-04-2023 influenza virus vaccine, unspecified formulation [facility] 02-04-2021 COVID-19 mRNA, Comirnaty (Pfizer) [facility] 01-21-2021 COVID-19 mRNA, Comirnaty (Pfizer) [facility] 10-09-2018 influenza virus vaccine, split virus (incl. purified surface antigen) Shantel Steven Other [employer] Other 10-09-2018 influenza virus vaccine, unspecified formulation [facility] NEGATED: Highlighted row has not occurred!08-21-2019 influenza virus vaccine, split virus (incl. purified surface antigen) Shantel Steven Other [employer] Other Payers Date Payer Category Payer Self-pay [id number] 1958 Medicare [id number]. [id number] 1958 Self-pay [id number] 1945 Unknown [id number] 2.16.84 [id number] 1945 Unknown [id number] 2.16.84 [id number] 1945 Unknown [id number] 2.16.84 [id number] 1945 Unknown [id number] 2.16.84 [id number] 1945 Unknown [id number] 2.16.84 [id number] 1945 Unknown [id number] 2.16.84 [id number] 1945 Unknown [id number] 2.16.84 [id number] 1945 Unknown [id number] 2.16.84 [id number] 1945 Unknown [id number] 2.16.84 [id number] Unknown Unknown [id number] 2.16.8 [id number] Social History Date Type Detail Facility Sex Assigned At [place] [employer] Other Start: 08-04-2022 End: 01-18-2024 Tobacco smoking status Ex-smoker (finding) [facility] [place] Tobacco smoking status Never [facility] [place] Start: 1945 Sex Assigned At Female F [facility] Functional Status Date Assessment Result Facility 08-04-2022 Functional Status N/A [facility] [place] Clinical Notes 08-25-2021 to 03-07-2024 Note Date & Type Note Facility 03-07-2024 Note [facility] Orly Cramer Bassem is a 78 y.o. year old female patient being seen for Follow-up (6 month) Patient Active Problem List Diagnosis Aortic valve disorder Benign essential hypertension Carotid artery stenosis Coronary atherosclerosis Diverticulitis of colon History of malignant neoplasm of breast Intestinal disaccharidase deficiency Lymphedema of left arm Morbid obesity (CMS/HCC) Obstructive sleep apnea syndrome Paroxysmal supraventricular tachycardia (CMS/HCC) Psoriasis Type 2 diabetes mellitus without complication (CMS/HCC) Mixed hyperlipidemia Diastolic dysfunction Carotid bruit Chronic diarrhea Chronic low back pain Depressive disorder Diabetes mellitus (CMS/HCC) Diabetic neuropathy (CMS/HCC) Exocrine pancreatic insufficiency Gastroesophageal reflux disease Hypertension Hypomagnesemia Hypothyroidism Stage 3 chronic kidney disease (CMS/HCC) Hyperlipidemia Atrial fibrillation (CMS/HCC) Paroxysmal atrial fibrillation (CMS/HCC) Family History Problem Relation Name Age of Onset Coronary artery disease Other Diabetes Other Polycystic kidney disease Other Social History Tobacco Use Smoking status: Former Types: Cigarettes Smokeless tobacco: Never Substance Use Topics Alcohol use: Not Currently Drug use: Never SHANNA Joe is seen in follow up and to discuss the watchman procedure. She is a 78 yo woman. She has history of AF on xarelto. She has hypertension on treatment. She has mild carotid stenosis by Duplex in 2014. She has diabetes on insulin and morbid obesity. She underwent cardiac cath after abnormal stress test in 2017 and that did not show significant disease. She says she had prior cardiac catheterizations. She has history of KS in the past and underwent balloon angioplasty (many years ago, prior to the stent era). 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 In December 2022 she was admitted to the [facility] with decompensated diastolic heart failure, she was treated with diuretic therapy. In February 2023 she was admitted to [facility] with dehydration secondary to acute gastroenteritis. She also had acute kidney injury in that setting. She has history of breast cancer more than 25 years ago s/p mastectomy, chemo and radiation therapy. She has lymphedema in the left arm. In the past she saw a retail support manager for bleeding behind the eye . she continues to follow with them. We previously discussed left atrial appendage closure as an alternative to anticoagulation therapy but she did not want to proceed with it. She has had a lot of balance issues, uses a walker to ambulate and has had about 10 falls in the past year. Today she is seen in follow-up. She has been doing well. No chest pain. No dyspnea. No palpitations. Review of Systems Cardiovascular: Negative for chest pain, claudication, cyanosis, dyspnea on exertion, irregular heartbeat, leg swelling, near-syncope, orthopnea, palpitations, paroxysmal nocturnal dyspnea and syncope. Objective Visit Vitals BP 118/70 (BP Location: Right arm, Patient Position: Sitting, BP Cuff Size: Adult long) Pulse 54 Resp 16 Ht 1.626 m (5' 4 ) Wt 120 kg (264 lb 6.4 oz) SpO2 97% BMI 45.38 kg/m??? Smoking Status Former BSA 2.33 m??? Physical Exam Constitutional: Appearance: She is well-developed. She is obese. She is not ill-appearing. HENT: Head: Normocephalic and atraumatic. Nose: Nose normal. Eyes: General: No scleral icterus. Pupils: Pupils are equal, round, and reactive to light. Neck: Thyroid: No thyromegaly. Vascular: No JVD. Cardiovascular: Rate and Rhythm: Normal rate and regular rhythm. Pulses: Radial pulses are 2+ on the right side and 2+ on the left side. Heart sounds: Normal heart sounds. No murmur heard. No friction rub. No gallop. Pulmonary: Effort: Pulmonary effort is normal. No respiratory distress. Breath sounds: Normal breath sounds. No wheezing or rales. Chest: Chest wall: No tenderness. Abdominal: General: Bowel sounds are normal. There is no distension. Palpations: Abdomen is soft. Tenderness: There is no abdominal tenderness. Musculoskeletal: General: No swelling. Cervical back: Neck supple. Comments: Uses a walker to assist with ambulation Skin: General: Skin is warm and dry. Neurological: General: No focal deficit present. Mental Status: She is alert and oriented to person, place, and time. Psychiatric: Mood and Affect: Mood normal. Behavior: Behavior is cooperative. Judgment: Judgment normal. Allergies Allergies Allergen Reactions Chocolate Flavor Iodine Other Shellfish Derived Other Sulfa (Sulfonamide Antibiotics) Other Iodinated Contrast Media Rash and Unknown Medications Current Outpatient Medications: ALPRAZolam (Xanax) 0.25 mg tablet, TAKE 1 TABLET BY MOUTH THREE TIMES DAILY NEEDED (more content not included)... 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 Last serum creatinine from 2 months ago 1.98 mg/dL and GFR 24. Patient likely has proteinuria since diabetes has been out of control. I will check protein to creatinine ratio next visit. I explained the patient the necessity of keeping diabetes and blood pressure under good control to preserve kidney function. Advised the patient to avoid NSAIDs completely. I will check PTH calcium and phosphorus next visit. Check renal ultrasound. Follow-up with the patient in 3 months Oct, Diabetic nephropathy associated with type 2 diabetes mellitus (ICD-10 - E11.21) I explained the patient the necessity of keeping diabetes under good control to preserve kidney function. Patient is already on TOLU inhibitor 20 mg p.o. daily. Patient follows with Dr. Mcconnell for DM management Oct, Hypertensive nephropathy (ICD-10 - I12.9) Patient is on multiple blood pressure medications including Lasix, lisinopril, metoprolol, spironolactone. Blood pressure seems well-controlled. Advised the patient to follow low-salt diet and to monitor blood pressure at home Oct, Hyperkalemia (ICD-10 - E87.5) Potassium elevated likely from hyperglycemia. Keep blood glucose level below 200. It is okay to continue TOLU inhibitor and spironolactone. Advised the patient to follow low potassium diet. I will recheck potassium next visit Oct, Hyponatremia (ICD-10 - E87.1) This is likely from hyperglycemia. Please keep blood glucose level below 200. Patient today is asymptomatic from hyponatremia Oct, Vitamin D deficiency (ICD-10 - E55.9) Patient is taking vitamin D supplement. I will check 25-hydroxy vitamin D next visit Oct, Vitamin B12 deficiency (ICD-10 - E53.8) Patient is currently not taking vitamin B12 supplement I will check vitamin B12 level next visit [facility] Other 12-11-2023 Evaluation note* Encounter Date Diagnosis Assessment Notes Treatment Notes Treatment Clinical Notes Oct, Lumbar degenerative disc disease (ICD-10 - M51.36) [facility] Other 12-07-2023 Evaluation note* Encounter Date Diagnosis Assessment Notes Treatment Notes Treatment Clinical Notes Oct, Bronchitis (ICD-10 - J40) Finish meds. No acute need for antibiotic at this time Oct, Diabetes mellitus with chronic kidney disease (ICD-10 - E11.22) Due for labs, followup w Dr. Mcconnell Oct, Lumbar degenerative disc disease (ICD-10 - M51.36) Pt will contact neurosurgery. [facility] Other 10-27-2023 Evaluation note* Encounter Date Diagnosis Assessment Notes Treatment Notes Treatment Clinical Notes Aug, Chronic kidney disease, stage 4 (severe) (ICD-10 - N18.4) [facility] Other 10-24-2023 Evaluation note* Encounter Date Diagnosis Assessment Notes Treatment Notes Treatment Clinical Notes Aug, Paroxysmal a-fib (ICD-10 - I48.0) Pt requests a new rx. She is cutting xarelto 20mg in 1/4s. Will print w lower dose. Aug, Type 2 diabetes mellitus with hyperglycemia (ICD-10 - E11.65) Pt is established w Dr. Mcconnell Decrease Lantus to 20 units so she is not so hypoglycemic at night. Aug, Lumbar degenerative disc disease (ICD-10 - M51.36) Pt requests referral to [facility] pain [facility]. Reviewed O[facility] report. Aug, Stress incontinence of urine (ICD-10 - N39.3) R/o infection. Discussed could be related to her diabetes med as well. [facility] Other 10-12-2023 Evaluation note* Encounter Date Diagnosis Assessment Notes Treatment Notes Treatment Clinical Notes Aug, Lumbar degenerative disc disease (ICD-10 - M51.36) [facility] Other 10-06-2023 NotePatient here for 1 mo follow up CAD, chronic diastolic heart failure, and PAF. Follow up labs have not been completed yet. Her immigration patrol inspector recently started her on Farxiga but she has not started it yet. She is not back on Xarelto because she hasn't received it in the mail yet. Chest pain has resolved. She denies SOB and palpitations. Review of Systems Constitutional: Positive for malaise/fatigue. Eyes: Positive for visual disturbance. Cardiovascular: Positive for leg swelling. Musculoskeletal: Positive for arthritis, back pain and muscle weakness. Neurological: Positive for excessive daytime sleepiness and light-headedness. All other systems reviewed and are negative.[facility] 08-17-2023 NoteCardiology Clinic Note Subjective Joe Call is a 78 y.o. year old female with paroxysmal atrial fibrillation on Xarelto, CAD status post PTCA in 1991, cath in 2017 showed nonobstructive disease, hypertension, diabetes mellitus, obesity, breast cancer status post left mastectomy with lymphedema, seen in follow-up. Patient Active Problem List Diagnosis Aortic valve disorder Benign essential hypertension Carotid artery stenosis Coronary atherosclerosis Diverticulitis of colon History of malignant neoplasm of breast Intestinal disaccharidase deficiency Lymphedema of left arm Morbid obesity (CMS/HCC) Obstructive sleep apnea syndrome Paroxysmal supraventricular tachycardia Psoriasis Type 2 diabetes mellitus without complication (CMS/HCC) Mixed hyperlipidemia Diastolic dysfunction Carotid bruit Chronic diarrhea Chronic low back pain Depressive disorder Diabetes mellitus (CMS/HCC) Diabetic neuropathy (CMS/HCC) Exocrine pancreatic insufficiency Gastroesophageal reflux disease Hypertension Hypomagnesemia Hypothyroidism Stage 3 chronic kidney disease (CMS/HCC) Hyperlipidemia Atrial fibrillation (CMS/HCC) Paroxysmal atrial fibrillation (CMS/HCC) Family History Problem Relation Name Age of Onset Coronary artery disease Other Diabetes Other Polycystic kidney disease Other Social History Tobacco Use Smoking status: Former Types: Cigarettes Smokeless tobacco: Never Substance Use Topics Alcohol use: Not Currently Drug use: Never Joe Call is a 78 y.o. year old female with paroxysmal atrial fibrillation on Xarelto, CAD status post PTCA in 1991, cath in 2017 showed nonobstructive disease, hypertension, diabetes mellitus, obesity, breast cancer treated with chemo, radiation and status post left mastectomy with lymphedema. Update: 01/16/2023 She is seen in post-hospital follow-up discharged on 01/02/2023 for acute decompensated diastolic heart failure. Echo showed preserved EF, no significant valvular heart disease. She was seen by cardiology in consultation during hospitalization, and recommended Lasix 40 mg and continuation of her home dose spironolactone. Today, she reports she is doing well with resolution of acute dyspnea on exertion leading to hospitalization. She is tolerating medications without concerns at this time. Update: 04/25/2023 In February 2023 she was admitted to [facility] with dehydration secondary to acute gastroenteritis. She also had acute kidney injury in that setting. She has history of breast cancer more than 25 years ago s/p mastectomy, chemo and radiation therapy. She has lymphedema in the left arm. She has been doing well. No chest pain. No dyspnea. No palpitations. She reports that she is seeing a retail support manager for bleeding behind the eye . She has had a lot of balance issues, uses a walker to ambulate and has had about 10 falls in the past year. Update: 07/23/2023 She was admitted to [facility] 07/08-07/10/2023 for decompensated HFpEF She was diuresed and discharged on Lasix 40 mg She has been experiencing flu-like symptoms in the morning, thinks may be related to a medication but does not know which one LE edema has resolved since discharge with marked improvement in dyspneic symptoms She has started exercising since discharge Experiencing chest pressure at rest, does not occur on exertion lasting up to 45 minutes at a time, improves with activity She is climbing stairs which she has not been able to do in years without reproducible chest pressure Update: 08/17/2023 I saw her 3 weeks, she is seen today in follow-up with questions Was prescribed Farxiga by her immigration patrol inspector but did not start after reading about side effects She would like to know if can have other fluids other than water Chest discomfort and LE edema have resolved, denies palpitations Review of Systems Cardiovascular: Positive for dyspnea on exertion. Negative for chest pain, claudication, irregular heartbeat, leg swelling, near-syncope, orthopnea, palpitations, paroxysmal nocturnal dyspnea and syncope. Objective Visit Vitals BP 141/71 (BP Location: Right wrist, Patient Position: Sitting) Pulse 69 Ht 1.651 m (5' 5 ) Wt 118 kg (260 lb) SpO2 97% BMI 43.27 kg/m??? Smoking Status Former BSA 2.33 m??? Physical Exam General: Awake, alert, good spirits. NAD Pulm: Bibasilar crackles Cards: Regular rate and rhythm, S1, S2. No S3 or S4 gallop. Murmur: none Abd: Soft, Nontender, physiologic bowel sounds are present Extr: Lower extremity edema: None. Skin: warm, dry, well perfused Neuro: A&Ox3, No gross deficits Allergies Allergies Allergen Reactions Chocolate Flavor Iodine Other Shellfish Derived Other Sulfa (Sulfonamide Antibiotics) Other Medications Current Outpatient Medications: ALPRAZolam (Xanax) 0.25 mg tablet, TAKE 1 TABLET BY MOUTH THREE TIMES DAILY NEEDED MUST LAST 30 DAYS, Disp: , Rfl (more content not included)...[facility] Encounter Date Diagnosis Assessment Notes Treatment Notes Treatment Clinical Notes Jul, Lumbar degenerative disc disease (ICD-10 - M51.36) [facility] Other 09-11-2023 NoteCardiology Clinic Note Subjective Joe Call is a 78 y.o. year old female with paroxysmal atrial fibrillation on Xarelto, CAD status post PTCA in 1991, cath in 2016 showed nonobstructive disease, hypertension, diabetes mellitus, obesity, breast cancer status post left mastectomy with lymphedema, seen in follow-up. Patient Active Problem List Diagnosis Aortic valve disorder Benign essential hypertension Carotid artery stenosis Coronary atherosclerosis Diverticulitis of colon History of malignant neoplasm of breast Intestinal disaccharidase deficiency Lymphedema of left arm Morbid obesity (CMS/HCC) Obstructive sleep apnea syndrome Paroxysmal supraventricular tachycardia (CMS/HCC) Psoriasis Type 2 diabetes mellitus without complication (CMS/HCC) Mixed hyperlipidemia Diastolic dysfunction Carotid bruit Chronic diarrhea Chronic low back pain Depressive disorder Diabetes mellitus (CMS/HCC) Diabetic neuropathy (CMS/HCC) Exocrine pancreatic insufficiency Gastroesophageal reflux disease Hypertension Hypomagnesemia Hypothyroidism Stage 3 chronic kidney disease (CMS/HCC) Hyperlipidemia Atrial fibrillation (CMS/HCC) Paroxysmal atrial fibrillation (CMS/HCC) Family History Problem Relation Name Age of Onset Coronary artery disease Other Diabetes Other Polycystic kidney disease Other Social History Tobacco Use Smoking status: Former Types: Cigarettes Smokeless tobacco: Never Substance Use Topics Alcohol use: Not Currently Drug use: Never Joe Call is a 78 y.o. year old female with paroxysmal atrial fibrillation on Xarelto, CAD status post PTCA in 1991, cath in 2017 showed nonobstructive disease, hypertension, diabetes mellitus, obesity, breast cancer treated with chemo, radiation and status post left mastectomy with lymphedema. Update: 01/16/2023 She is seen in post-hospital follow-up discharged on 01/02/2023 for acute decompensated diastolic heart failure. Echo showed preserved EF, no significant valvular heart disease. She was seen by cardiology in consultation during hospitalization, and recommended Lasix 40 mg and continuation of her home dose spironolactone. Today, she reports she is doing well with resolution of acute dyspnea on exertion leading to hospitalization. She is tolerating medications without concerns at this time. Update: 04/25/2023 In February 2023 she was admitted to [facility] with dehydration secondary to acute gastroenteritis. She also had acute kidney injury in that setting. She has history of breast cancer more than 25 years ago s/p mastectomy, chemo and radiation therapy. She has lymphedema in the left arm. She has been doing well. No chest pain. No dyspnea. No palpitations. She reports that she is seeing a retail support manager for bleeding behind the eye . She has had a lot of balance issues, uses a walker to ambulate and has had about 10 falls in the past year. Update: 07/23/2023 She was admitted to [facility] 07/08-07/10/2023 for decompensated HFpEF She was diuresed and discharged on Lasix 40 mg She has been experiencing flu-like symptoms in the morning, thinks may be related to a medication but does not know which one LE edema has resolved since discharge with marked improvement in dyspneic symptoms She has started exercising since discharge Experiencing chest pressure at rest, does not occur on exertion lasting up to 45 minutes at a time, improves with activity She is climbing stairs which she has not been able to do in years without reproducible chest pressure Review of Systems Cardiovascular: Positive for dyspnea on exertion. Negative for chest pain, claudication, irregular heartbeat, leg swelling, near-syncope, orthopnea, palpitations, paroxysmal nocturnal dyspnea and syncope. Objective Visit Vitals BP 128/69 (BP Location: Right wrist, Patient Position: Sitting) Pulse 57 Ht 1.651 m (5' 5 ) Wt 115 kg (254 lb) SpO2 97% BMI 42.27 kg/m??? Smoking Status Former BSA 2.3 m??? Physical Exam General: Awake, alert, good spirits. NAD Pulm: Bibasilar crackles Cards: Regular rate and rhythm, S1, S2. No S3 or S4 gallop. Murmur: none Abd: Soft, Nontender, physiologic bowel sounds are present Extr: Lower extremity edema: None. Skin: warm, dry, well perfused Neuro: A&Ox3, No gross deficits Allergies Allergies Allergen Reactions Chocolate Flavor Iodine Other Shellfish Derived Other Sulfa (Sulfonamide Antibiotics) Other Medications Current Outpatient Medications: ALPRAZolam (Xanax) 0.25 mg tablet, TAKE 1 TABLET BY MOUTH THREE TIMES DAILY NEEDED MUST LAST 30 DAYS, Disp: , Rfl: atorvastatin (Lipitor) 20 mg tablet, Take 1 tablet every day by oral route., Disp: , Rfl: cholecalciferol (Vitamin D-3) 25 MCG (1000 UT) capsule, Take 1 capsule every day by oral route., Disp: , Rfl: dilTIAZem SR (Cardizem SR) 120 mg 12 hr capsule, Take 120 mg by mouth 1 (one) time each day., Disp: (more content not included)...[facility]09-11-2023 NotePatient here for follow up [facility] for CHF. She was seen as inpatient consult on 07/09 by Sorin Zuluaga CNP. Had repeat BMP a few days ago. Denies SOB, lightheadedness, and bleeding on Xarelto. Does get chest pressure from time to time . Review of Systems Cardiovascular: Positive for chest pain ( pressure ), leg swelling and palpitations. Musculoskeletal: Positive for arthritis, back pain and muscle weakness. All other systems reviewed and are negative.[facility] 07-17-2023 Evaluation note* Encounter Date Diagnosis Assessment Notes Treatment Notes Treatment Clinical Notes Jul, Acute on chronic diastolic CHF (congestive heart failure) (ICD-10 - I50.33) Has appt w Cardio on 07/23 and will have labs on 07/20. Symptoms improved. Jul, Paroxysmal a-fib (ICD-10 - I48.0) On Xarelto. Followup w Cardiology Jul, Edema due to hypoalbuminemia (ICD-10 - E88.09) Improved. She is drinking 3 16oz bottle of water daily. Jul, Cutaneous candidiasi s (ICD-10 - B37.2) Pt requests refill - Keep area clean and dry. Jul, Lumbar degenerative disc disease (ICD-10 - M51.36) States she takes 1-2 daily. Requests refill. Oarrs reviewed. No med changes needed. [facility] Other 07-05-2023 Evaluation note* Encounter Date Diagnosis Assessment Notes Treatment Notes Treatment Clinical Notes May, C. difficile colitis (ICD-10 - A04.72) [facility] Other 06-19-2023 Evaluation note* Encounter Date Diagnosis Assessment Notes Treatment Notes Treatment Clinical Notes Apr, Skin candidiasis (ICD-10 - B37.2) Discussed this is related to her hyperglycemia. Will treat w nystatin, but needs improvement in diet and glucose readings. Apr, Type 2 diabetes mellitus with hyperglycemia, unspecified whether termite exterminator insulin use (ICD-10 - E11.65) Pt agrees to see Dr Mcconnell again. Recently sent to ER for glucose of 608. Apr, Tremor of both hands (ICD-10 - R25.1) Referral to Dr. Lopez Apr, Memory changes (ICD- 10 - R41.3) Referral to Dr. Lopez Apr, Gastroesophageal reflux disease without esophagitis (ICD-10 - K21.9) Improved on carafate w PPI. [facility] Other 06-14-2023 NoteUT [facility]iology - [facility] Subjective Joe Call is a 77 y.o. year old female patient being seen for 3 month follow up Atrial Fibrillation, Congestive Heart Failure, and Hypertension Patient Active Problem List Diagnosis Aortic valve disorder Benign essential hypertension Carotid artery stenosis Coronary atherosclerosis Diverticulitis of colon History of malignant neoplasm of breast Intestinal disaccharidase deficiency Lymphedema of left arm Morbid obesity (CMS/HCC) Obstructive sleep apnea syndrome Paroxysmal supraventricular tachycardia (CMS/HCC) Psoriasis Type 2 diabetes mellitus without complication (CMS/HCC) Mixed hyperlipidemia Diastolic dysfunction Carotid bruit Chronic diarrhea Chronic low back pain Depressive disorder Diabetes mellitus (CMS/HCC) Diabetic neuropathy (CMS/HCC) Exocrine pancreatic insufficiency Gastroesophageal reflux disease Hypertension Hypomagnesemia Hypothyroidism Stage 3 chronic kidney disease (CMS/HCC) Hyperlipidemia Atrial fibrillation (CMS/HCC) Paroxysmal atrial fibrillation (CMS/HCC) Family History Problem Relation Name Age of Onset Coronary artery disease Other Diabetes Other Polycystic kidney disease Other Social History Tobacco Use Smoking status: Former Types: Cigarettes Smokeless tobacco: Never Substance Use Topics Alcohol use: Not Currently Drug use: Never HPI Joe is seen in follow up and to discuss the watchman procedure. She is a 77 yo woman. She has history of AF on xarelto. She has hypertension on treatment. She has mild carotid stenosis by Duplex in 2014. She has diabetes on insulin and morbid obesity. She underwent cardiac cath after abnormal stress test in 2017 and that did not show significant disease. She says she had prior cardiac catheterizations. She has history of KS in the past and underwent balloon angioplasty (many years ago, prior to the stent era). 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 [facility] December 2022 [facility] [facility]ens[facility] diastolic [facility] failure, she was treated with diuretic therapy. In February 2023 she was admitted to [facility] with dehydration secondary to acute gastroenteritis. She also had acute kidney injury in that setting. She has history of breast cancer more than 25 years ago s/p mastectomy, chemo and radiation therapy. She has lymphedema in the left arm. She has been doing well. No chest pain. No dyspnea. No palpitations. She reports that she is seeing a retail support manager for bleeding behind the eye . She has had a lot of balance issues, uses a walker to ambulate and has had about 10 falls in the past year. Review of Systems Cardiovascular: Positive for leg swelling. All other systems reviewed and are negative. Objective Visit Vitals BP 134/68 (BP Location: Right arm, Patient Position: Sitting) Pulse 56 Wt 117 kg (257 lb) BMI 42.77 kg/m??? Smoking Status Former BSA 2.32 m??? Physical Exam Constitutional: Appearance: She is well-developed. She is obese. She is not ill-appearing. HENT: Head: Normocephalic and atraumatic. Nose: Nose normal. Eyes: General: No scleral icterus. Pupils: Pupils are equal, round, and reactive to light. Neck: Thyroid: No thyromegaly. Vascular: No JVD. Cardiovascular: Rate and Rhythm: Normal rate and regular rhythm. Pulses: Radial pulses are 2+ on the right side and 2+ on the left side. Heart sounds: Normal heart sounds. No murmur heard. No friction rub. No gallop. Pulmonary: Effort: Pulmonary effort is normal. No respiratory distress. Breath sounds: Normal breath sounds. No wheezing or rales. Chest: Chest wall: No tenderness. Abdominal: General: Bowel sounds are normal. There is no distension. Palpations: Abdomen is soft. Tenderness: There is no abdominal tenderness. Musculoskeletal: General: No swelling. Cervical back: Neck supple. Comments: Uses a walker to assist with ambulation Skin: General: Skin is warm and dry. Neurological: General: No focal deficit present. Mental Status: She is alert and oriented to person, place, and time. Psychiatric: Mood and Affect: Mood normal. Behavior: Behavior is cooperative. Judgment: Judgment normal. Allergies Allergies Allergen Reactions Chocolate Flavor Iodine Other Shellfish Derived Other Sulfa (Sulfonamide Antibiotics) Other Medications Current Outpatient Medications: atorvastatin (Lipitor) 20 mg tablet, Take 1 tablet every day by oral route., Disp: , Rfl: cholecalciferol (Vitamin D-3) 25 MCG (1000 UT) capsule, Take 1 capsule every day by oral route., Disp: , Rfl: dilTIAZem SR (Cardizem SR) 120 mg 12 hr capsule, Take 120 mg by mouth 1 (one) time each day., Disp: , Rfl: famotidine (Pepcid) 20 mg tablet, Take 20 mg by mouth if needed at bedtime., Disp: , Rfl: furosemide (Lasix) 40 mg tablet, Take 40 mg by mouth (more content not included)...[facility]06-01-2023 Evaluation note* Encounter Date Diagnosis Assessment Notes Treatment Notes Treatment Clinical Notes Apr, Gastroesophageal ref lux disease without esophagitis (ICD-10 - K21.9) [facility] Other 04-28-2023 Evaluation note* Encounter Date Diagnosis Assessment Notes Treatment Notes Treatment Clinical Notes Feb, C. difficile colitis (ICD-10 - A04.72) Discussed c diff - finish med and will call in 2 weeks, may need another course or med if symptoms continue Feb, Weakness (ICD-10 - R53.1) considering PT - will check back for that. Feb, Type 2 diabetes mellitus with hyperglycemia (ICD-10 - E11.65) going to get lab ordered on 02/20 today Feb, terminal block assembler (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 insulin (ICD-10 - Z79.4) [facility] Other 04-26-2023 Evaluation note* Encounter Date Diagnosis Assessment Notes Treatment Notes Treatment Clinical Notes Feb, C. difficile colitis (ICD-10 - A04.72) [facility] Other 04-17-2023 Evaluation note* Encounter Date Diagnosis Assessment Notes Treatment Notes Treatment Clinical Notes Feb, Gastroesophageal ref lux disease without esophagitis (ICD-10 - K21.9) [facility] Other 04-14-2023 Evaluation note* Encounter Date Diagnosis Assessment Notes Treatment Notes Treatment Clinical Notes Feb, Chronic diarrhea (ICD-10 - K52.9) [facility] Other 04-11-2023 Evaluation note* Encounter Date Diagnosis Assessment Notes Treatment Notes Treatment Clinical Notes Feb, Acute kidney injury (ICD-10 - N17.9) Reviewed labs on discharge summary. Would like to recheck kidney function to ensure that numbers are continuing to normalize. Encouraged hydration and rest. Feb, Type 2 diabetes mellitus with hyperglycemia (ICD-10 - E11.65) Joe agreed to increase her long-acting insulin to 40 units daily. We will call her for an update in 2 weeks. Possibly will need to go up from there. Understand her hesitancy to continue the sliding scale as it really overall has not been helpful. [facility] Other 01-13-2023 Evaluation note* Encounter Date Diagnosis Assessment Notes Treatment Notes Treatment Clinical Notes Nov, Type 2 diabetes mellitus with hyperglycemia, unspecified whether care home insulin use (ICD-10 - E11.65) [facility] Other 10-14-2021 Evaluation note* Encounter Date Diagnosis Assessment Notes Treatment Notes Treatment Clinical Notes Aug, Primary osteoarthritis of right knee (ICD-10 - M17.11) The patient is suffering from degenerative arthritis involving the knee. We discussed the conservative treatment options which can be beneficial in relieving pain, including gentle non-impact motion exercise and non-steroidal anti-inflammatory medication. We discussed the use of occasional cortisone injections that can provide pain relief as well as hyaluronan lubricant injection. Patient given order for formal physical therapy. Prescription for mobic sent into patients pharmacy Aug, Primary osteoarthritis of left knee (ICD-10 - M17.12) Aug, Severe obesity (BMI >= 40) (ICD-10 - E66.01) Aug, Other 1. After discussion with the patient I do not feel that her primary issue is her knee arthritis. Her biggest issue is her overall weakness in her bilateral lower extremities from deconditioning. 2. Tylenol: Discussed taking Tylenol (acetaminophen). Recommended adjusting their dosing to 1000mg by mouth up to 3 times a day. 3. NSAIDs: Prescribed the patient 15 mg Mobic (meloxicam) to be taken by mouth daily. 4. We had a long discussion with the patient today concerning their right and left knee osteoarthritis. The radiographs do show osteoarthritis of the knees. At this time we will treat her osteoarthritis with adjusting her Tylenol and now starting her on Mobic. 5. In regards to her bilateral lower extremity weakness and falls, we will get her referred to physical therapy to work on quad strengthening and gait training 6. Follow up in 3 months. [facility] Other Evaluation + Plan note No data available for this section General Surgery [place] Evaluation noteNo InformationNort [employer] Other Evaluation noteNort [employer] Other Evaluation noteNoSamplesaint Other Evaluation note* Diagnosis Onset Date Resolution Status Chalazion of right eye acute Immunization due acute Urinary incontinence [facility] Work Phone: History general Narrative - Reported* Type Description Date Medical History heart attack Medical History breast cancer Medical History vasculitis Medical History Atrial fibrillation Medical History Diverticulitis Medical History DM Medical History lactose intolerant Medical History Lymph edema Medical History Osteoarthritis Medical History Macular degeneration Medical History CKD STAGE 3 SECONDARY TO DIABETE S Medical History HYPOTHYROIDISM Medical History HYPERCHOLESTEROLEMIA Medical History ATRILA FIBRILLATION Medical History NEUROPATHY IN DIABETES Medical History HYPERTENSION Medical History LEFT CAROTID BRUIT Medical History NODULAR THYROID DISEASE Surgical History Hysterectomy Surgical History Mastectomies- Left 1993, right 1997 Surgical History removal of armpit sweat glands Surgical History removal of gallbladder 2003 Surgical History Removal of sigmoid colon 2006 Surgical History Heart cath Surgical History back surgery 2014 Surgical History CARDIAC CATH X2 Surgical History SHOULDER PROCEDURE 2015 Surgical History COLONOSCOPY 08/2017 Surgical History COLONOSCOPY 04/10/2019 Hospitalization History See above [employer] [facility] Other History general Narrative - Reported* Type Description Date Medical History heart attack Medical History breast cancer Medical History vasculitis Medical History Atrial fibrillation Medical History Diverticulitis Medical History DM Medical History lactose intolerant Medical History Lymph edema Medical History Osteoarthritis Medical History Macular degeneration Medical History CKD STAGE 3 SECONDARY TO DIABETE S Medical History HYPOTHYROIDISM Medical History HYPERCHOLESTEROLEMIA Medical History ATRILA FIBRILLATION Medical History NEUROPATHY IN DIABETES Medical History HYPERTENSION Medical History LEFT CAROTID BRUIT Medical History NODUGERDLAR THYROID DISEASE Medical History GERD Surgical History Hysterectomy Surgical History Mastectomies- Left 1992, right 1997 Surgical History removal of armpit sweat glands Surgical History removal of gallbladder 2003 Surgical History Removal of sigmoid colon 2006 Surgical History Heart cath Surgical History back surgery 2014 Surgical History CARDIAC CATH X2 Surgical History SHOULDER PROCEDURE 2015 Surgical History COLONOSCOPY 08/2017 Surgical History COLONOSCOPY 04/10/2019 Hospitalization History See above [facility] Other [email or web address] general Narrative - ReportedEngine[employer] Ideas Other [email or web address] general Narrative - ReportedEngine[employer] Ideas Other [email or web address] general Narrative - Reported* Type Description Date Medical History heart attack Medical History breast cancer Medical History vasculitis Medical History Atrial fibrillation Medical History Diverticulitis Medical History DM Medical History lactose intolerant Medical History Lymph edema Medical History Osteoarthritis Medical History Macular degeneration Medical History CKD STAGE 3 SECONDARY TO DIABETE S Medical History HYPOTHYROIDISM Medical History HYPERCHOLESTEROLEMIA Medical History ATRILA FIBRILLATION Medical History NEUROPATHY IN DIABETES Medical History HYPERTENSION Medical History LEFT CAROTID BRUIT Medical History NODUGERDLAR THYROID DISEASE Medical History GERD Surgical History Hysterectomy Surgical History Mastectomies- Left 1993, right 1997 Surgical History removal of armpit sweat glands Surgical History removal of gallbladder 2003 Surgical History Removal of sigmoid colon 2006 Surgical History Heart cath Surgical History back surgery 2014 Surgical History CARDIAC CATH X2 Surgical History SHOULDER PROCEDURE 2015 Surgical History COLONOSCOPY 08/2017 Surgical History COLONOSCOPY 04/10/2019 Hospitalization History See above [facility], DUE TO HYPOALBUMINEMIA, CHF 07/10/2023 Hospitalization History CHF 01/2023 Hospitalization History GERD 2022 Hospitalization History DIABETES ISSUES 2022 [facility] Other Hospital Discharge instructions No data available for this section General Surgery [place] Progress note No data available for this section General Surgery [place] Summary Purpose Family History No Family History Records Found Relationship Condition Age at Onset Recorded Date/T deborah father Unknown Heart disease Unknown family member Family history of other condition Unknow n Not Specified Heart disease Unknown Unknown sister Alzheimer's dementia Unknown Advance Directives No Advanced Directives Records Found Advance Directive Response Recorded Date/ Time Advance Directives No June 11 9:56pm Reason for Referral Reason *Waiting for appt Labs last week. Sees endocrinology for diabetes. Renal function decreased. Diagnosis 1 Chronic kidney disea se, stage 4 (severe) (N18.4) Referral Organization [facility] Referring Provider First Name Shantel Referring Provider Last Name Tenisha Referring Provider Specialty [facility] Referred Organization [facility] Nephrology Referred Provider Cherie Rapp Referred Address [address] [place], [place],[address] Referred Provider Specialty Nephrology Referral Priority Routine General Notes Mariela Kingston 11:35:41 AM >received today, sent P2P Reason *FU 09/13 lumbar p ain Diagnosis 1 Lumbar degenerative disc disease (M51.36) Referral Organization [facility] Referring Provider First Name Shantel Referring Provider Last Name Tenisha Referring Provider Specialty [facility] Referred Organization [facility] Referred Provider Terell Soliz Referred Address [address], [place],[address] Referred Provider Specialty Pain Medicin e Referral Priority Routine General Notes Mariela Kingston 03:09:25 PM >received today, waiting for notes to be locked Mariela Kingston 09/06/2023 10:08:29 AM >notes locked, referral faxed Clinical Notes F: [id number] Reason Poorly controlled di abetes Diagnosis 1 Type 2 diabetes maranda itus with hyperglycemia, unspecified whether care home insulin use (E11.65) Referral Organization [facility] Referring Provider First Name Shantel Referring Provider Last Name Tenisha Referring Provider Specialty [facility] Referred Organization Unknown Facility Referred Provider Joshua Mcconnell Referred Provider Specialty Internal Med icine Referral Priority Routine Reason tremor and memory lo ss - family history of dementia Diagnosis 1 Tremor of both hands (R25.1) Referral Organization [facility] Referring Provider First Name Shantel Referring Provider Last Name Tenisha Referring Provider Specialty [facility] Referred Organization Unknown Facility Referred Provider Emery Lopez Referred Provider Specialty Neurology Referral Priority Routine Chief Complaint and Reason for Visit Chief Complaint Amb Documentation Amb Documentation Bump on eyelid Amb Documentation Amb Documentation Amb Documentation Discharge Issues/ Urinary Issues Reason for Visit Chalazion of right e ye Immunization due Urinary incontinence Chief Complaint Amb Documentation Amb Documentation Bump on eyelid Amb Documentation Amb Documentation Amb Documentation Discharge Issues/ Urinary Issues M54.50 Reason for Visit Chalazion of right e ye Immunization due Urinary incontinence Additional Source Comments INFORMATION SOURCE (unrecogn ized section and content) DATE CREATED AUTHOR 05/10/2018 [facility] DATE CREATED AUTHOR AUTHOR'S ORGANIZ ATION 03/10/2023 [facility] DATE CREATED AUTHOR AUTHOR'S ORGANIZ ATION 02/20/2024 [facility] DATE CREATED AUTHOR AUTHOR'S ORGANIZ ATION 03/10/2024 [facility] DATE CREATED AUTHOR AUTHOR'S ORGANIZ ATION 03/25/2024 [facility] REASON FOR VISIT (unrecogniz ed section and content) Bilateral Knee Painmedicatio nprescription refillprescription refillprescription refillsTCMTBHmessagerefillrefillc diff2 MONTH FOLLOW UPrefillcritical labBlood Work/RashmessagemedicationTBHRefillsrefillscriticalsleep issueslabsrefillRENAL CKD 4head cold for 2 weeksrefillmessage Care Team (unrecognized sect ion and content) Team Status: Active Member Role Status Dates Shantel Steven MD Primary Care Provider Active Team Status: Active Member Role Status Dates Shantel Steven MD Primary Care Provider Active Start: January 04, 2024 CHENCHO Spicer Attending Provider Active Start : January 04, 2024 Team Status: Active Member Role Status Dates Shantel Steven MD Primary Care Provider Active Start: January 15, 2024 CHENCHO Spicer Attending Provider Active Start : January 15, 2024 Team Status: Inactive Member Role Status Dates Shantel Steven MD Primary Care Provider Active Start: January 18, 2024 End: January 18, 2024 Franchesca Sullivan APRN MAINTENANCE DEPARTMENT TECHNICIAN-C Attending Provider Act chiqui Start: January 18, 2024 End: January 18, 2024 Team Status: Active Member Role Status Dates Shantel Steven MD Primary Care Provider Active Start: January 22, 2024 CHENCHO Spicer Attending Provider Active Start : January 22, 2024 Team Status: Active Member Role Status Dates Shantel Steven MD Primary Care Provider Active Start: January 24, 2024 CHENCHO Michaels Attending Provider Active St art: January 24, 2024 Team Status: Active Member Role Status Cecille Steven MD Primary Care Provider Active Start: January 29, 2024 CHENCHO Michaels Attending Provider Active St art: January 29, 2024 Team Status: Inactive Member Role Status Cecille Steven MD Primary Care Provide r, Attending Provider Active Start: February 15, 2024 End: February 15, 2024 Team Status: Inactive Member Role Status Cecille Steven MD Primary Care Provide r, Other Provider Active Start: March 13, 2024 End: March 13, 2024 Eloina Hussein MD Attending Provider , Referring Provider Active Start: March 13, 2024 End: March 13, 2024 Goals (unrecognized section and content) Goals may be documented in a n alternate section FOR RECORDS PERTAINING TO PATIENTS WHO ARE OR HAVE BEEN ENROLLED IN A CHEMICAL DEPENDENCY/SUBSTANCEABUSE PROGRAM, SOME INFORMATION MAY BE OMITTED. This clinical summary was aggregated from multiple sources. Caution should be exercised in using it in the provision of clinical care. This summary normalizes information from multiple sources, and as a consequence, information in this document may materially change the coding, format and clinical context of patient data. In addition, data may be omitted in some cases. CLINICAL DECISIONS SHOULD BE BASED ON THE PRIMARY CLINICAL RECORDS. [facility] [employer] [facility]. provides no warranty or guarantee of the accuracy or completeness of information in this document.
--- NOTE | 2024-03-26 05:08 | ECG_ITS ---
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
--- NOTE | 2024-03-26 05:21 | ED_ITS ---
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 pressure has now decreased. feels short of breath. Describes past history of CHF. Similar chest pressure last time she was in CHF. past history of IDDM and A. Fib. No fever, cough , nausea or abdominal pain Related Data Home Medications ?Medication ?Instructions ?Recorded ?Confirmed alprazolam 0.25 mg tablet 0.25 mg PO TID PRN anxiety 04/25/23 03/26/24 atorvastatin 20 mg tablet 20 mg PO DAILY 04/25/23 03/26/24 biotin 5 mg capsule 5 mg PO DAILY 04/25/23 03/26/24 cholecalciferol (vitamin D3) 125 5,000 unit PO DAILY 04/25/23 03/26/24 mcg (5,000 unit) capsule diltiazem HCl 120 mg 120 mg PO Q24H 04/25/23 03/26/24 capsule,extended release 24 hr famotidine 20 mg tablet 20 mg PO BEDTIME PRN heartburn 04/25/23 03/26/24 insulin glargine 100 unit/mL (3 35 unit subcut BEDTIME 04/25/23 03/26/24 mL) subcutaneous pen (Lantus Solostar U-100 Insulin) levothyroxine 112 mcg tablet 112 mcg PO DAILY 04/25/23 03/26/24 lisinopril 20 mg tablet 20 mg PO DAILY 04/25/23 03/26/24 metoprolol tartrate 100 mg tablet 150 mg PO BID 04/25/23 03/26/24 omega 8-ara-nck-fish oil 1,200 mg 1 cap PO DAILY 04/25/23 03/26/24 (144 mg-216 mg) capsule (Fish Oil) oxycodone-acetaminophen 5 mg-325 1 tab PO BID PRN pain 04/25/23 03/26/24 mg tablet rivaroxaban 20 mg tablet (Xarelto) 20 mg PO QPM 04/25/23 03/26/24 selenium 200 mcg capsule 200 mcg PO DAILY 04/25/23 03/26/24 dapagliflozin propanediol 10 mg 10 mg PO DAILY 07/08/23 03/26/24 tablet (Farxiga) insulin aspar prot-insulin aspart 35 unit subcut DAILY 07/08/23 03/26/24 100 unit/mL (70-30) subcutaneous pen (Novolog Mix 70-30FlexPen U-100) spironolactone 25 mg tablet 25 mg PO DAILY 07/08/23 03/26/24 (Aldactone) sucralfate 1 gram tablet (Carafate) 1 g PO BID 07/08/23 03/26/24 Previous Rx's ?Medication ?Instructions ?Recorded furosemide 40 mg tablet 40 mg PO DAILY 30 days #30 tabs 07/10/23 Allergies Allergy/AdvReac Type Severity Reaction Status Date / Time Sulfa (Sulfonamide Allergy Rash Verified 03/26/24 05:10 Antibiotics) Review of Systems ROS Status of ROS 10 or more systems reviewed and unremark able except as noted in history and below [facility] Medical History (Updated 03/26/24 @ 06:24 by Paco Bryant MD) Lymph edema ?I89.0 - Lymphedema, not elsewhere classified (ICD-10) Cataracts, bilateral ?H26.9 - Unspecified cataract (ICD-10) Hypertension ?I10 - Essential (primary) hypertension (ICD-10) Breast cancer ?C50.919 - Malignant neoplasm of unspecified site of unspecified female breast (ICD-10) Lumbar compression fracture ?S32.000A - Wedge compression fracture of unspecified lumbar vertebra, initial encounter for closed fracture (ICD-10) Atrial fibrillation ?I48.91 - Unspecified atrial fibrillation (ICD-10) Obesity ?E66.9 - Obesity, unspecified (ICD-10) Diabetes mellitus ?E11.9 - Type 2 diabetes mellitus without complications (ICD-10) Hyperglycemia ?R73.9 - Hyperglycemia, unspecified (ICD-10) Family History (Updated 07/08/23 @ 04:02 by Mira Addison) Other Family history of CHF (congestive heart failure) Family history of cancer Family history of diabetes mellitus Family history of hypertension H/O mastectomy Social History Smoking status: Never smoker Exam Constitutional Vital Signs, click to edit/add: Last Vital Signs Temp 97.9 F 03/26/24 05:04 Pulse 72 03/26/24 05:04 Resp 16 03/26/24 05:04 BP 172/62 H 03/26/24 06:15 Pulse Ox 95 03/26/24 05:04 O2 Del Method Room Air 03/26/24 05:04 Common normals: no apparent distress, average body habitus, oriented x3, no limitations, healthy appearing, alert and well nourished [facility] Common normals: normocephalic Eye Common normals: EOMs intact bilaterally and conjunctivae normal Respiratory Common normals: normal respiratory effort, no retractions and no use of accessory muscles Other: faint basilar crackles Cardio Common normals: regular rate, regular rhythm, S1 normal heart sound and S2 normal heart sound GI Common normals: Normal to inspection, nondistended, normoactive bowel sounds present, soft to palpation and non-tender Extremity Common normals: normal to inspection Neuro Common normals: oriented x3, CN's II-XII intact bilaterally, moves all extremities and no focal motor deficits Psych Appearance: grossly normal Course Vital Signs Vital signs: Vital Signs Temperature 97.9 F 03/26/24 05:04 Pulse Rate 72 03/26/24 05:04 Respiratory Rate 16 03/26/24 05:04 Blood Pressure 208/88 H 03/26/24 05:04 Pulse Oximetry 95 03/26/24 05:04 Oxygen Delivery Method Room Air 03/26/24 05:04 Temperature 97.9 F 03/26/24 05:04 Pulse Rate 72 03/26/24 05:04 Respiratory Rate 16 03/26/24 05:04 Blood Pressure 172/62 H 03/26/24 06:15 Pulse Oximetry 95 03/26/24 05:04 Oxygen Delivery Method Room Air 03/26/24 05:04 MDM - Chest Pain MDM Narrative Medical decision making narrative: past history of A. Fib, IDDM and CHF. Presents complaining of chest pressure and shortness of breath similar to the last time she had CHF. BP elevated on arrival. Improved from 208 systolic to 172 systolic with Hydralazine. cxray with CHF and BNP elevated. normal troponin. Lasix 60 IVP ordered. Discussed with Dr Cadet and patient accepted for admission Lab Data Labs: Lab Results 03/26/24 Range/Units 05:13 WBC 8.3 (4.0-11.0) 10^3/uL RBC 4.36 (4.20-5.40) 10^6/uL Hgb 12.7 (12.0-16.0) g/dL Hct 40.1 (36.0-48.0) % MCV 92.0 (81.0-99.0) fL MCH 29.1 (26.7-34.0) pg MCHC 31.7 (29.9-35.2) g/dL RDW 14.5 (11.0-15.0) % Plt Count 225 (150-450) 10^3/uL MPV 10.8 (9.5-13.5) fL Neut % (Auto) 73.4 (43.0-75.0) % Lymph % (Auto) 16.5 L (20.5-60.0) % [place] % (Auto) 7.9 (1.7-12.0) % Eos % (Auto) 1.2 (0.9-7.0) % Baso % (Auto) 0.8 (0.2-2.0) % Neut # (Auto) 6.1 (1.4-6.5) 10^3/uL Lymph # (Auto) 1.4 (1.2-3.8) 10^3/uL [place] # (Auto) 0.7 (0.3-0.8) 10^3/uL Eos # (Auto) 0.1 (0.0-0.7) 10^3/uL Baso # (Auto) 0.1 (0.0-0.1) 10^3/uL Abs Immat Gran (auto) 0.02 (0.00-0.03) 10^3/uL Imm/Tot Granulo (auto) 0.2 (0.0-0.5) % Sodium 136 (136-145) mmol/L Potassium 4.3 (3.5-5.1) mmol/L Chloride 102 (98-107) mmol/L Carbon Dioxide 28.5 (21.0-32.0) mmol/L Anion Gap 9.8 BUN 35.0 H (7.0-18.0) mg/dL Creatinine 1.14 H (0.55-1.02) mg/dL Est GFR ( Amer) 56 L (>=60) Est GFR (Non-Af Amer) 46 L (>=60) BUN/Creatinine Ratio 30.7 Glucose 246 H (74-106) mg/dL Calcium 9.1 (8.5-10.1) mg/dL Troponin I High Sens 12.4 (4.0-51.3) pg/mL NT-Pro-B Natriuret Pep 2890.0 H* (<=1800.0) pg/mL Discharge Plan Discharge Chief Complaint: Chest Pain Clinical Impression: CHF (congestive heart failure) Qualifiers: Heart failure type: unspecified Heart failure chronicity: acute on chronic Qualified Code(s): I50.9 - Heart failure, unspecified Patient Disposition: Admitted as Observation
--- NOTE | 2024-03-26 05:24 | XR_ITS ---
The [address] [address] Patient Name: JOE CALL MRN: [id number] date: 1945 Sex: F Assigned Patient Location: ER Current Patient Location: ER Accession/Order Number: [id number] Exam Date: 03/26/2024 05:30 Report Date: 03/26/2024 05:44 At the request of: ANALISA WHYTE Procedure: XR chest 1V EXAM: XR chest HISTORY: . chest pain . COMPARISON: 07/09/2023 TECHNIQUE: Single view of the chest FINDINGS: Heart is mildly enlarged. There is pulmonary venous congestion along with prominence of the interstitial markings. There is atelectasis and or infiltrate in the left retrocardiac region. Small bilateral effusions are noted. Atherosclerotic changes of the thoracic aorta are noted. EKG leads overlie the chest. XR/XR chest 1V IMPRESSION: 1. Cardiac enlargement. 2. Prominence of the vascularity and interstitial markings along with small bilateral effusions. Findings would be most consistent with congestive heart failure with interstitial edema. 3. The small amount of atelectasis versus early infiltrate in the left retrocardiac region. Electronically authenticated by: NICOLAS CASTANEDA Date: 03/26/2024 05:44
[2024-03-26 05:31] LABS: Basophils Absolute Auto 0.1 10^3/uL (0.0-0.1); Basophils Percent Auto 0.8 % (0.2-2.0); Eosinophils Absolute Auto 0.1 10^3/uL (0.0-0.7); Eosinophils Percent Auto 1.2 % (0.9-7.0); Hematocrit 40.1 % (36.0-48.0); Hemoglobin 12.7 g/dL (12.0-16.0); Immature Granulocytes Abs Auto 0.02 10^3/uL (0.00-0.03); Immature Granulocytes Pct Auto 0.2 % (0.0-0.5); Lymphocytes Absolute Auto 1.4 10^3/uL (1.2-3.8); Lymphocytes Percent Auto 16.5 % (20.5-60.0); Mean Corpuscular HGB Conc 31.7 g/dL (29.9-35.2); Mean Corpuscular Hemoglobin 29.1 pg (26.7-34.0); Mean Platelet Volume 10.8 fL (9.5-13.5); Monocytes Absolute Auto 0.7 10^3/uL (0.3-0.8); Monocytes Percent Auto 7.9 % (1.7-12.0); Neutrophils Absolute Auto 6.1 10^3/uL (1.4-6.5); Neutrophils Percent Auto 73.4 % (43.0-75.0); Platelet Count 225 10^3/uL (150-450); Red Blood Count 4.36 10^6/uL (4.20-5.40); Red Cell Distribution Width 14.5 % (11.0-15.0); White Blood Count 8.3 10^3/uL (4.0-11.0)
[2024-03-26] MEDS: HYDRALAZINE HCL 20 MG/ML VIAL 5 MG IVP (05:34)
[2024-03-26 05:53] LABS: Anion Gap 9.8; BUN Creatinine Ratio 30.7; Calcium 9.1 mg/dL (8.5-10.1); Carbon Dioxide 28.5 mmol/L (21.0-32.0); Chloride 102 mmol/L (98-107); Estimated GFR (African America 56 (>=60); Estimated GFR (Non-African Ame 46 (>=60); Glucose 246 mg/dL (74-106); Potassium 4.3 mmol/L (3.5-5.1); Sodium 136 mmol/L (136-145); Troponin I High Sensitivity 12.4 pg/mL (4.0-51.3)
[2024-03-26] MEDS: FUROSEMIDE 40 MG/4 ML VIAL 60 MG IVP (06:15)
--- NOTE | 2024-03-26 07:15 | CA_ITS ---
Patient Name: JOE CALL MR#: [id number] : 1945 Exam Date: 03/26/2024 Ordering Doctor: Rachana Plata ECHOCARDIOGRAM REPORT PROCEDURE: CA ECHO DOPPLER COMPLETE INDICATIONS: Congestive heart failure, elevated BNP, bilateral mastectomy, hypertension, diabetes COMPARISON: None. DESCRIPTION: COMPLETE ECHOCARDIOGRAM Real-time transthoracic echocardiography with 2D, M-mode, spectral and color flow Doppler performed. QUALITY: Technical quality was good. 65 , 264#, BSA 2.23 m2, BP 174/61 LEFT VENTRICLE: Normal chamber size. Moderate concentric hypertrophy. Normal systolic function. Abnormal septal motion consistent with pressure and/or volume overload. LV EF: Normal left ventricular ejection fraction, (>55%). DIASTOLIC: Grade II diastolic dysfunction. ATRIAL SEPTUM: LEFT ATRIUM: Severe dilatation. RIGHT ATRIUM: Moderate dilatation. RIGHT VENTRICLE: Normal chamber size. Normal right ventricular systolic function. TRICUSPID VALVE: Normal mobility and thickness. No stenosis with mild regurgitation. Doppler studies reveal severely (>60) elevated right sided pressures. RVSP 96 mmHg MITRAL VALVE: Moderately thickened with decreased mobility. Mild mitral valve stenosis. Moderate to severe mitral annular calcification. Mild mitral regurgitation. AORTIC VALVE: Normal trileaflet appearance. Mildly calcified aortic valve. Normal leaflet mobility. No evidence of aortic valve stenosis. Trivial aortic regurgitation. AORTIC ROOT: Normal diameter and appearance. Ascending aorta is normal in size. PULMONIC VALVE: Normal thickness and mobility. No stenosis. No regurgitation. PERICARDIUM: No evidence of pericardial effusion. IVC: Not well visualized. PLEURA: CONCLUSION: 1. Moderate concentric hypertrophy with normal systolic function. LVEF is 55-60%. 2. Normal right ventricular size and systolic function. 3. Grade II (moderate) diastolic dysfunction. 4. Moderate to severe biatrial dilatation. 5. Mild mitral stenosis and regurgitation. 6. Mild tricuspid regurgitation. 7. Severely elevated right sided pressures. RVSP is around 96 mmHg. 8. No pericardial effusion. Adult Echocardiography Procedure Report Left Ventricle LVEDD (3.7 - 5.6 cm): 3.84 cm LVESD (2.2 - 4.0 cm): 2.91 cm LVIVS thickness (0.6 - 1.2 cm): 1.85 cm LVPW thickness (0.5 - 1.0 cm): 1.11 cm LVOT Max Gradient: 4.74 mm[Hg] LVOT Area (cm2): 1.09 m/s Peak Velocity (LVOT): 1.09 m/s Mean Velocity (LVOT): 0.77 m/s LVOT Diameter 2.04 cm Left Atrium LA Volume Index (2D A2C): 36.41 ml/m2 Left Atrium Systolic Dimension: 3.82 cm Mitral Valve MV E to A Ratio: 1.27 Mitral Valve A-Wave Peak Velocity: 1.16 m/s Mitral Valve E-Wave Peak Velocity: 1.47 m/s Right Ventricle Aorta AO Root Diam: 3.57 cm Ascending Ao Diam: 2.61 cm Aortic Valve AoV Area (Peak Jean Paul): 2.14 cm2, 2.14 cm2 AoV Area (VTI): 2.63 cm2, 2.63 cm2 Peak Velocity(Antegrade Flow): 1.67 m/s Peak Gradient(Antegrade Flow): 11.18 mm[Hg] Mean Velocity(Antegrade Flow): 1.10 m/s Mean Gradient(Antegrade Flow): 5.70 mm[Hg] Velocity Time Integral: 44.47 cm Tricuspid Valve Peak Velocity (Regurgitant Flow): 3.25 m/s, 4.69 m/s Pulmonic Valve Peak Velocity: 0.98 m/s Peak Gradient: 3.44 mm[Hg], 4.21 mm[Hg] Right Atrium Right Atrium Systolic Pressure: 26.59 ml, 26.59 ml Dictated by: Akira Kaplan M.D. on 03/27/2024 at 08:46 Approved by: Akira Kaplan M.D. on 03/27/2024 at 08:59
--- NOTE | 2024-03-26 07:24 | PC.NURSE ---
Patient assisted to bathroom and voided in toilet without measurement device in place. Patient states she peed a gallon.
[2024-03-26 09:13] LABS: Estimated Average Glucose 275 mg/dL; Glycohemoglobin A1C 11.2 % (4.5-6.2)
[2024-03-26 09:21] LABS: TSH W/ REFLEX FT4 6.001 uIU/mL (0.358-3.740)
--- NOTE | 2024-03-26 09:41 | P.HP_ITS ---
<Statement entered by Ernesto Cadet MD - 03/26/24 11:16> Patient seen and examined, agree with H&P below. Presented with chest pressure and SOB. Found to have fluid overload on chest x-ray and elevated BNP. Admitted for CHF exacerbation and started IV lasix. Echo June 2023 with EF >55%. Will resume home medication. Diagnosis: 1. Acute on chronic HFpEF 2. DM2 with hyperglycemia 3. HTN 4. Paroxysmal afib 5. CKD 3a 6. Hypothyroidism HPI H&P: HPI History of Present Illness Chief complaint: CHEST HEAVINESS Narrative: 03/26/24 0850 This is a 78-year-old female patient with a past medical history as outlined below including DM2 with uncontrolled hyperglycemia, hypertension, GERD, HFpEF, hypothyroidism, and paroxysmal A-fib; who presented to the ED early this morning complaining of feeling chest heaviness that felt similar to a prior episode of CHF exacerbation. She denies actual chest pain, cough, orthopnea, or N/V/D. She does note increased abdominal girth for the last 6 months that she feels may be fluid. Workup in the ED revealed CKD, slightly improved from previous labs, elevated BNP (2890), and a chest x-ray revealed changes consistent with CHF and interstitial edema. She was admitted early this morning the patient for CHF exa cerbation. At the time of my exam the patient is resting comfortably in bed and is able to lie flat. She is not noticeably short of breath and there is no evidence of hypoxia. We have initiated twice daily IV Lasix and will obtain a 2D echo today. An A1c was added onto the ED labs and this reveals uncontrolled hyperglycemia (A1c 11.3). Her home insulin regimen has been adjusted and we will monitor her blood sugar levels closely. Opioid HPI Opioid Management Most Recent Opioid Data: Last Pain Scale 0 03/26/24 06:46 Last Pain Assessment 03/26/24 08:49 Last ORT Total Score 0 03/26/24 06:38 Last ORT Risk Category Low Risk 03/26/24 06:38 Review of Systems ROS Status of ROS 10 or more systems reviewed and unremark able except as noted in history and below [facility] Medical History (Updated 03/26/24 @ 09:52 by Rachana Plata NP) Hypothyroidism (acquired) ?E03.9 - Hypothyroidism, unspecified (ICD-10) CKD stage 3a, GFR 45-59 ml/min ?N18.31 - Chronic kidney disease, stage 3a (ICD-10) Hypertension ?I10 - Essential (primary) hypertension (ICD-10) Paroxysmal atrial fibrillation ?I48.0 - Paroxysmal atrial fibrillation (ICD-10) Diabetes mellitus with hyperglycemia, with long-term current use of insulin ?E11.65 - Type 2 diabetes mellitus with hyperglycemia (ICD-10) ?Z79.4 - CHCF (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 insulin (ICD-10) CHF (congestive heart failure) ?I50.9 - Heart failure, unspecified (ICD-10) Lymph edema ?I89.0 - Lymphedema, not elsewhere classified (ICD-10) Cataracts, bilateral ?H26.9 - Unspecified cataract (ICD-10) Breast cancer ?C50.919 - Malignant neoplasm of unspecified site of unspecified female breast (ICD-10) Lumbar compression fracture ?S32.000A - Wedge compression fracture of unspecified lumbar vertebra, initial encounter for closed fracture (ICD-10) Atrial fibrillation ?I48.91 - Unspecified atrial fibrillation (ICD-10) Obesity ?E66.9 - Obesity, unspecified (ICD-10) Diabetes mellitus ?E11.9 - Type 2 diabetes mellitus without complications (ICD-10) Hyperglycemia ?R73.9 - Hyperglycemia, unspecified (ICD-10) Surgical History (Updated 03/26/24 @ 06:36 by Brooke Conrad) H/O bilateral mastectomy ?Z90.13 - Acquired absence of bilateral breasts and nipples (ICD-10) Family History (Updated 07/08/23 @ 04:02 by Mira Addison) Other Family history of CHF (congestive heart failure) Family history of cancer Family history of diabetes mellitus Family history of hypertension H/O mastectomy Social History (Updated 03/26/24 @ 06:38 by Brooke Conrad) Within the past year, how often did you have a drink containing alcohol: never Within the past year, how often did you have six or more drinks on one occasion: never Score interpretation: A score less than 3 is consistent with normal alcohol consumption. 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 Highest level of school completed/degree received: high school graduate Do you want help with school or training: No Are you now , , , , never or living with a partner: In a typical week, how many times do you talk on the telephone with family, f riends, or neighbors: 3 or more times per week How often do you get together with friends or relatives: 3 or more times per week How often do you attend pentecostal or jewish services: never Do you belong to any clubs or organizations such as pentecostal groups unions, fraternal or athletic groups, or school groups: no Total score: 2 Score interpretation: A score of greater than or equal to 2 indicates the lowes t level of social isolation. Little interest or pleasure in doing things: not at all Feeling down, depressed, or hopeless: not at all Feel stressed/tense/nervous/anxious/difficulty sleeping: not at all Due to disability, difficulty making decisions: No Do you think of yourself as: straight/heterosexual Gender Identity: female Meds Home Medications and Allergies Home Medications ?Medication ?Instructions ?Recorded ?Confirmed ?Type alprazolam 0.25 mg tablet 0.25 mg PO TID PRN anxiety 04/25/23 03/26/24 History atorvastatin 20 mg tablet 20 mg PO DAILY 04/25/23 03/26/24 History biotin 5 mg capsule 5 mg PO DAILY 04/25/23 03/26/24 History cholecalciferol (vitamin D3) 125 5,000 unit PO DAILY 04/25/23 03/26/24 History mcg (5,000 unit) capsule diltiazem HCl 120 mg 120 mg PO Q24H 04/25/23 03/26/24 History capsule,extended release 24 hr famotidine 20 mg tablet 20 mg PO BEDTIME PRN heartburn 04/25/23 03/26/24 History insulin glargine 100 unit/mL (3 35 unit subcut BEDTIME 04/25/23 03/26/24 History mL) subcutaneous pen (Lantus Solostar U-100 Insulin) levothyroxine 112 mcg tablet 112 mcg PO DAILY 04/25/23 03/26/24 History lisinopril 20 mg tablet 20 mg PO DAILY 04/25/23 03/26/24 History metoprolol tartrate 100 mg tablet 150 mg PO BID 04/25/23 03/26/24 History omega 9-xcn-hdf-fish oil 1,200 mg 1 cap PO DAILY 04/25/23 03/26/24 History (144 mg-216 mg) capsule (Fish Oil) oxycodone-acetaminophen 5 mg-325 1 tab PO BID PRN pain 04/25/23 03/26/24 History mg tablet rivaroxaban 20 mg tablet (Xarelto) 20 mg PO QPM 04/25/23 03/26/24 History selenium 200 mcg capsule 200 mcg PO DAILY 04/25/23 03/26/24 History dapagliflozin propanediol 10 mg 10 mg PO DAILY 07/08/23 03/26/24 History tablet (Farxiga) insulin aspar prot-insulin aspart 35 unit subcut DAILY 07/08/23 03/26/24 History 100 unit/mL (70-30) subcutaneous pen (Novolog Mix 70-30FlexPen U-100) spironolactone 25 mg tablet 25 mg PO DAILY 07/08/23 03/26/24 History (Aldactone) sucralfate 1 gram tablet (Carafate) 1 g PO BID 07/08/23 03/26/24 History furosemide 40 mg tablet 40 mg PO DAILY 30 days #30 tabs 07/10/23 03/26/24 Rx Allergies Allergy/AdvReac Type Severity Reaction Status Date / Time Sulfa (Sulfonamide Allergy Rash Verified 03/26/24 05:10 Antibiotics) Exam Constitutional Vital Signs, click to edit/add: Last Vital Signs Temp 97.3 F L 03/26/24 07:55 Pulse 70 03/26/24 08:00 Resp 20 03/26/24 07:55 BP 174/61 H 03/26/24 07:55 Pulse Ox 94 L 03/26/24 07:55 O2 Del Method Room Air 03/26/24 07:55 Common normals: no apparent distress, oriented x3, alert and well nourished General appearance: cooperative Orientation/consciousness: Yes awake [facility] Common normals: normocephalic, head/scalp atraumatic, hearing grossly normal bilaterally, external nose normal and moist oral mucous membranes Eye Common normals: PERRL, EOMs intact bilaterally, conjunctivae normal and no scleral icterus Alignment: alignment normal Eyelid: eyelids normal Neck & C-Spine Common normals: full ROM, supple and no JVD Chest Chest: symmetrical chest wall rise Breast/axilla inspection: abnormal inspection of the breast (Bilat mastectomy) Other: Intertrigo to skin folds Respiratory Common normals: normal respiratory effort, no retractions, no use of accessory muscles and clear to auscultation bilaterally Effort & inspection: able to speak in complete sentences Auscultation: rales (Faint RLL) Cardio Common normals: no JVD, regular rate, regular rhythm, S1 normal heart sound, S2 normal heart sound, no gallops, no clicks, no rub and peripheral pulses 2+ throughout Heart sounds: murmur (HSM 2/6) GI Common normals: Normal to inspection, nondistended, normoactive bowel sounds present, soft to palpation, non-tender, no hepatosplenomegaly, no masses and no bruits Inspection: abdominal distension and fluid wave present Bladder/kidney exam: bladder normal to palpation Back & Pelvis Common normals: thoracic and lumbar spine normal to inspection Extremity Common normals: normal capillary refill General: normal exam except as noted and edema (1-2+ Bilat ankles/insteps); no clubbing and no cyanosis Other: Profound, chronic lymph edema LUE Neuro Lemitar Coma Scale: GCS not evaluated Common normals: CN's II-XII intact bilaterally, moves all extremities, no focal motor deficits and no sensory deficits noted Speech: speech normal Sensory exam: sensory level loss detected (Bilat feet, chronic peripheral neuropathy) Motor exam: strength 5/5 throughout Psych Common normals: mental status grossly normal, thought process normal, affect normal and activity/motor behavior normal Results Labs Labs: Short CBC 03/26/24 Range/Units 05:13 WBC 8.3 (4.0-11.0) 10^3/uL Hgb 12.7 (12.0-16.0) g/dL Hct 40.1 (36.0-48.0) % Plt Count 225 (150-450) 10^3/uL BMP 03/26/24 05:13 Sodium 136 Potassium 4.3 Chloride 102 Carbon Dioxide 28.5 BUN 35.0 H Creatinine 1.14 H Glucose 246 H Calcium 9.1 Pulse Oximetry Attestation: I have reviewed the pertinent pulse oximetry results. Imaging Chest x-ray: Attestation: I have reviewed the pertinent imaging results. Radiologist's impression: IMPRESSION: 1. Cardiac enlargement. 2. Prominence of the vascularity and interstitial markings along with small bilateral effusions. Findings would be most consistent with congestive heart failure with interstitial edema. 3. The small amount of atelectasis versus early infiltrate in the left retrocardiac region. Assessment and Plan Assessment and Plan (1) Acute on chronic heart failure with preserved ejection fraction (HFpEF): Assessment and Plan: Acute * Adm observation * IVP Lasix 40 mg BID * Strict I&O - place Peacock catheter for accurate monitoring in setting of chronic incontinence * Daily weights * 2D Echo today * Last Echo 06/2023 - LVEF 55-60%, Grd 2 moderate diastolic dysfunction, Biatrial enlargement, Mild tricuspid and mitral regurg, Mod elevated RV systolic pressure, Mild mitral stenosis * Continue home spironolactone * CBC, CMP, and BNP daily (2) Hypertensive urgency: Assessment and Plan: Chronic * BP 208/88 on arrival to the ED * Baseline BP reportedly 120/70s * Improved control after Hydralazine IVP x 1 in the ED * Possibly contributing to CHF exac, but may also result from CHF * Continue home Lisinopril, Lopressor, and Cardizem * IVP Lasix as above * Consider adjusting doses or adding agent such as amlodipine pending clinical course after adequate diuresis (3) Diabetes mellitus with hyperglycemia, with long-term current use of insulin: Assessment and Plan: Acute * Uncontrolled hyperglycemia * BS 246 on arrival to the ED * A1C 11.3 * Continue home Lantus as recently adjusted by her lead solutions architect * Hold home 70/30 SSI * 5 un Humalog TIDWM - hold if not eating * High dose SSI for glucose correction * ACHS glucometer checks * CC med diet * Pt is no longer taking Farxiga as she cannot afford it (4) Paroxysmal atrial fibrillation: Assessment and Plan: Chronic * Continue home diltiazem and metoprolol for rate control * Continue home xarelto for CVA prevention (5) CKD stage 3a, GFR 45-59 ml/min: Assessment and Plan: Chronic * Stable at baseline * CMP daily to monitor while on increased diuretic dosing (6) Hypothyroidism (acquired): Assessment and Plan: Chronic * TSH added on to ED labs - elevated at 6.001, but normal FT4 at 1.29 * Likely increase levothyroxine dosing once nursing has confirmed that the pt has been taking it daily as prescribed. (7) Breast cancer: Assessment and Plan: Chronic * s/p bilateral mastectomies Qualifiers: Breast location: unspecified site of breast Estrogen receptor status: unspecified Laterality: bilateral Patient sex: female Qualified Code(s): C50.911 - Malignant neoplasm of unspecified site of right female breast; C50.912 - Malignant neoplasm of unspecified site of left female breast
[2024-03-26 09:44] LABS: Free T4 1.29 ng/dL (0.76-1.46)
[2024-03-26] MEDS: DILTIAZEM HCL 120 MG CAP.ER.24H PO (09:47)
[2024-03-26] MEDS: SUCRALFATE 1 GM TABLET PO ×2 (09:47→20:58)
[2024-03-26] MEDS: METOPROLOL TARTRATE 100 MG TABLET 150 MG PO ×2 (09:47→20:58)
[2024-03-26] MEDS: LISINOPRIL 20 MG TABLET PO (09:47)
[2024-03-26] MEDS: SPIRONOLACTONE 25 MG TABLET PO (09:48)
[2024-03-26] MEDS: FUROSEMIDE 40 MG/4 ML VIAL IVP ×2 (09:48→23:16)
[2024-03-26] MEDS: ATORVASTATIN CALCIUM 20 MG TABLET PO (09:48)
--- NOTE | 2024-03-26 10:46 | CM.NOTE ---
Rounds made with Dr. Cadet. Dr. Cadet explains tests ordered and treatment plan. Ms. Luevano in agreement and verbalizes understanding.
--- NOTE | 2024-03-26 11:13 | CM.NOTE ---
Medicare Outpatient Observation Notice reviewed and discussed with patient. Pt. verbalized understanding and signed the form. Original given to patient and copy placed in patient?s chart.
[2024-03-26 12:17] LABS: Glucometer 304 mg/dL (74-106)
[2024-03-26] MEDS: INSULIN REGULAR 300 UNITS/3 ML 5 UNIT SUBQ ×2 (12:30→16:41)
[2024-03-26 16:28] LABS: Glucometer 293 mg/dL (74-106)
[2024-03-26] MEDS: RIVAROXABAN 10 MG TABLET 20 MG PO (20:58)
[2024-03-26 21:09] LABS: Glucometer 277 mg/dL (74-106)
[2024-03-26] MEDS: INSULIN DETEMIR 300 UNIT/3 ML INSULN.PEN 20 UNIT SQ (21:10)
[2024-03-27] VITALS (17 sets, daily range): BP systolic 119–156; BP diastolic 55–82; PULSE 53–72; TEMP 36.5–36.9; O2SAT 92–95
[2024-03-27 04:47] LABS: Basophils Absolute Auto 0.1 10^3/uL (0.0-0.1); Basophils Percent Auto 0.8 % (0.2-2.0); Eosinophils Absolute Auto 0.1 10^3/uL (0.0-0.7); Eosinophils Percent Auto 1.1 % (0.9-7.0); Hematocrit 37.4 % (36.0-48.0); Hemoglobin 12.1 g/dL (12.0-16.0); Immature Granulocytes Abs Auto 0.03 10^3/uL (0.00-0.03); Immature Granulocytes Pct Auto 0.3 % (0.0-0.5); Lymphocytes Absolute Auto 1.3 10^3/uL (1.2-3.8); Lymphocytes Percent Auto 13.3 % (20.5-60.0); Mean Corpuscular HGB Conc 32.4 g/dL (29.9-35.2); Mean Corpuscular Hemoglobin 29.2 pg (26.7-34.0); Mean Corpuscular Volume 90.3 fL (81.0-99.0); Mean Platelet Volume 10.6 fL (9.5-13.5); Monocytes Absolute Auto 0.8 10^3/uL (0.3-0.8); Monocytes Percent Auto 8.4 % (1.7-12.0); Neutrophils Absolute Auto 7.4 10^3/uL (1.4-6.5); Neutrophils Percent Auto 76.1 % (43.0-75.0); Platelet Count 204 10^3/uL (150-450); Red Blood Count 4.14 10^6/uL (4.20-5.40); Red Cell Distribution Width 14.2 % (11.0-15.0); White Blood Count 9.7 10^3/uL (4.0-11.0)
[2024-03-27 05:30] LABS: Estimated Average Glucose 275 mg/dL; Glycohemoglobin A1C 11.2 % (4.5-6.2)
[2024-03-27 05:34] LABS: Alanine Aminotransferase 12 U/L (14-59); Albumin Globulin Ratio 0.6; Albumin Level 2.6 g/dL (3.4-5.0); Alkaline Phosphatase 89 U/L (46-116); Anion Gap 10.8; Aspartate Amino Transferase 9 U/L (15-37); BUN Creatinine Ratio 28.6; Bilirubin Total 0.9 mg/dL (0.2-1.0); Calcium 9.1 mg/dL (8.5-10.1); Carbon Dioxide 28.8 mmol/L (21.0-32.0); Chloride 99 mmol/L (98-107); Estimated GFR (African America 53 (>=60); Estimated GFR (Non-African Ame 44 (>=60); Globulin 4.6 g/dL; Glucose 273 mg/dL (74-106); Magnesium 1.7 mg/dL (1.8-2.4); Potassium 3.6 mmol/L (3.5-5.1); Sodium 135 mmol/L (136-145); Total Protein 7.2 g/dL (6.4-8.2)
[2024-03-27] MEDS: LEVOTHYROXINE SODIUM 112 MCG TABLET PO (06:00)
--- NOTE | 2024-03-27 06:00 | XR_ITS ---
The [address] [address] Patient Name: JOE CALL MRN: [id number] date: 1945 Sex: F Assigned Patient Location: [place] Current Patient Location: [place] Accession/Order Number: [id number] Exam Date: 03/27/2024 04:38 Report Date: 03/27/2024 06:51 At the request of: OCDY PORTILLO Procedure: XR chest 2V EXAMINATION: XR chest 2V HISTORY: SOB COMPARISON: XR chest 07/09/2023 FINDINGS: LUNGS: Mild haziness and stranding within left lung base retrocardiac region. VASCULATURE: No increased pulmonary vasculature. PLEURA: No pneumothorax, effusion, or pleural thickening. CARDIAC: No cardiomegaly or cardiac silhouette abnormality. MEDIASTINUM: No visible mass or adenopathy. BONES: No fracture or visible bone lesion. OTHER: Negative. XR/XR chest 2V IMPRESSION: 1. Mild left basilar infiltrates versus atelectasis; new since prior study. Electronically authenticated by: SOFIA JOHN Date: 03/27/2024 06:51
[2024-03-27] MEDS: ATORVASTATIN CALCIUM 20 MG TABLET PO (08:32)
[2024-03-27] MEDS: SUCRALFATE 1 GM TABLET PO ×2 (08:32→21:32)
[2024-03-27] MEDS: METOPROLOL TARTRATE 100 MG TABLET 150 MG PO ×2 (08:32→21:32)
[2024-03-27] MEDS: DILTIAZEM HCL 120 MG CAP.ER.24H PO (08:32)
[2024-03-27] MEDS: LISINOPRIL 20 MG TABLET PO (08:33)
[2024-03-27] MEDS: SPIRONOLACTONE 25 MG TABLET PO (08:33)
[2024-03-27] MEDS: INSULIN REGULAR 300 UNITS/3 ML 5 UNIT SUBQ (08:34)
[2024-03-27] MEDS: NYSTATIN 15 GM POWDER 1 APPLIC TOPICAL ×2 (08:34→21:32)
[2024-03-27] MEDS: FUROSEMIDE 40 MG/4 ML VIAL 80 MG IVP ×2 (09:42→21:32)
[2024-03-27] MEDS: POTASSIUM CHLORIDE 10 MEQ ER TABLET 40 MEQ PO (09:42)
[2024-03-27] MEDS: MAGNESIUM SULFATE IN WATER 2 GM/50 ML PREMIX IV (09:43)
--- NOTE | 2024-03-27 11:52 | CM.NOTE ---
Rounds made with Dr. Cadet. Dr. Cadet discussed plan of care and tests results with patient and patient's . Possible discharge tomorrow. No plan for discharge today. No discharge needs anticipated.
--- NOTE | 2024-03-27 12:02 | P.PN_ITS ---
<Statement entered by Ernesto Cadet MD - 03/27/24 15:07> Patient seen and examined, agree with H&P below. Patient feels better this am and less SOB. Edema improved but BNP elevated and chest x-ray worse. Increase lasix. Diagnosis: 1. Acute on chronic HFpEF 2. DM2 with hyperglycemia 3. HTN 4. Paroxysmal afib 5. CKD 3a 6. Hypothyroidism Progress Note: Subjective Subjective Interval history: 03/27/24 0943 The patient is sitting up in a bedside chair at the time of my exam having just finished eating her breakfast. She reports feeling much improved since admission. Unfortunately, her BNP kurt precipitously overnight despite IVP Lasix dosing. Her renal function has remained basically stable. Will increase her Lasix to 80 mg twice daily and monitor her renal function closely. Discharge likely in the next 24 to 48 hours. Exam Constitutional Vital Signs, click to edit/add: Last Vital Signs Temp 98.5 F 03/27/24 08:39 Pulse 57 L 03/27/24 09:48 Resp 16 03/27/24 08:39 BP 156/69 H 03/27/24 08:39 Pulse Ox 92 L 03/27/24 08:39 O2 Del Method Room Air 03/27/24 08:39 Common normals: no apparent distress, oriented x3 and alert General appearance: cooperative Orientation/consciousness: Yes awake [facility] Common normals: normocephalic, head/scalp atraumatic and hearing grossly normal bilaterally Eye Common normals: PERRL, EOMs intact bilaterally, conjunctivae normal and no scleral icterus General eye: normal appearance of both eyes Chest Common normals: inspection of chest normal Chest: symmetrical chest wall rise Respiratory Common normals: normal respiratory effort, no use of accessory muscles and clear to auscultation bilaterally Effort & inspection: able to speak in complete sentences Auscultation: diminished lung sounds (BLL) Cardio Common normals: regular rate, regular rhythm, S1 normal heart sound, S2 normal heart sound and peripheral pulses 2+ throughout Heart sounds: murmur (HSM 2/6) GI Common normals: Normal to inspection, nondistended, normoactive bowel sounds present, soft to palpation, non-tender and no hepatosplenomegaly Inspection: abdominal distension and fluid wave present Bladder/kidney exam: bladder normal to palpation Extremity Common normals: normal to inspection and no calf tenderness General: edema (1-2+ BLE insteps/ankles); no clubbing and no cyanosis Neuro Common normals: CN's II-XII intact bilaterally, moves all extremities, no focal motor deficits and no sensory deficits noted Psych Common normals: mental status grossly normal Progress Note: Objective Labs Labs: Short CBC 03/27/24 Range/Units 04:29 WBC 9.7 (4.0-11.0) 10^3/uL Hgb 12.1 (12.0-16.0) g/dL Hct 37.4 (36.0-48.0) % Plt Count 204 (150-450) 10^3/uL BMP 03/27/24 04:29 Sodium 135 L Potassium 3.6 Chloride 99 Carbon Dioxide 28.8 BUN 34.0 H Creatinine 1.19 H Glucose 273 H Calcium 9.1 Liver Function 03/27/24 Range/Units 04:29 Total Bilirubin 0.9 (0.2-1.0) mg/dL AST 9 L (15-37) U/L ALT 12 L (14-59) U/L Alkaline Phosphatase 89 (46-116) U/L Albumin 2.6 L (3.4-5.0) g/dL Progress Note: A&P Assessment and Plan (1) Acute on chronic heart failure with preserved ejection fraction (HFpEF): Assessment and Plan: Acute * Clinically improved, but BNP worsened overnight to 4572 * Increase IVP Lasix to 80 mg BID * Strict I&O - place Peacock catheter for accurate monitoring in setting of chronic incontinence * Daily weights * 2D Echo today * Mostly unchanged from previous study except for new severely elevated RVSP at 96 mmHg. Suspect JED vs OHS * Last Echo 06/2023 - LVEF 55-60%, Grd 2 moderate diastolic dysfunction, Biatrial enlargement, Mild tricuspid and mitral regurg, Mod elevated RV systolic pressure, Mild mitral stenosis * Continue home spironolactone * CBC, CMP, and BNP daily (2) Hypertensive urgency: Assessment and Plan: Chronic * Improving * BP 150s/70s overnight * Baseline BP reportedly 120/70s * Continue to monitor trends * Possibly contributing to CHF exac, but may also result from CHF * Continue home Lisinopril, Lopressor, and Cardizem * IVP Lasix as above * Consider adjusting doses or adding agent such as amlodipine pending clinical course after adequate diuresis (3) Hypokalemia: Assessment and Plan: Acute * Borderline K+ 3.6 * Risk for significant hypokalemia with increased dosing of lasix today * KCL 40 mEq x 1 today * KCL 20 mEq daily while on IVP lasix (4) Diabetes mellitus with hyperglycemia, with long-term current use of insulin: Assessment and Plan: Acute * Uncontrolled hyperglycemia * BS 273 today * A1C 11.3 * Increase basal Levemir to 25 un at HS * Continue to hold home 70/30 SSI * Continue 5 un Humalog TIDWM - hold if not eating * Consider increasing dose pending clinical course * Continue high dose SSI for glucose correction * ACHS glucometer checks * CC med diet * Pt is no longer taking Farxiga as she cannot afford it (5) Paroxysmal atrial fibrillation: Assessment and Plan: Chronic * Continue home diltiazem and metoprolol for rate control * Continue home xarelto for CVA prevention (6) CKD stage 3a, GFR 45-59 ml/min: Assessment and Plan: Chronic * Stable at baseline * CMP daily to monitor while on increased diuretic dosing (7) Hypothyroidism (acquired): Assessment and Plan: Chronic * Subtherapeutic TSH at 6.001, but normal FT4 at 1.29 * Increase levothyroxine dosing to 125 mcg daily (8) Breast cancer: Assessment and Plan: Chronic * s/p bilateral mastectomies Qualifiers: Breast location: unspecified site of breast Estrogen receptor status: unspecified Patient sex: female Laterality: bilateral Qualified Code(s): C50.911 - Malignant neoplasm of unspecified site of right female breast; C50.912 - Malignant neoplasm of unspecified site of left female breast Urinary Catheter Management Urinary Catheter Management Urethral: Cath placed during this visit: yes Urethral indwelling: Yes Reason for continuing: measure accurate output Insertion date: 03/26/24 Insertion time: 12:10
[2024-03-27 13:02] LABS: Glucometer 341 mg/dL (74-106)
[2024-03-27] MEDS: INSULIN ASPART 300 UNIT/3 ML PEN SUBQ ×3 (14:16→16:32)
[2024-03-27 16:29] LABS: Glucometer 322 mg/dL (74-106)
[2024-03-27 19:42] LABS: Glucometer 119 mg/dL (74-106)
[2024-03-27] MEDS: RIVAROXABAN 10 MG TABLET 20 MG PO (21:32)
[2024-03-27 21:52] LABS: Glucometer 161 mg/dL (74-106)
[2024-03-28] VITALS (9 sets, daily range): BP systolic 131–154; BP diastolic 67–74; PULSE 56–67; TEMP 36.6; O2SAT 95
[2024-03-28 05:15] LABS: Basophils Absolute Auto 0.1 10^3/uL (0.0-0.1); Basophils Percent Auto 0.9 % (0.2-2.0); Eosinophils Absolute Auto 0.1 10^3/uL (0.0-0.7); Eosinophils Percent Auto 1.7 % (0.9-7.0); Hemoglobin 12.6 g/dL (12.0-16.0); Immature Granulocytes Abs Auto 0.03 10^3/uL (0.00-0.03); Immature Granulocytes Pct Auto 0.4 % (0.0-0.5); Lymphocytes Absolute Auto 1.8 10^3/uL (1.2-3.8); Lymphocytes Percent Auto 21.4 % (20.5-60.0); Mean Corpuscular HGB Conc 31.5 g/dL (29.9-35.2); Mean Platelet Volume 10.5 fL (9.5-13.5); Monocytes Absolute Auto 0.8 10^3/uL (0.3-0.8); Monocytes Percent Auto 9.7 % (1.7-12.0); Neutrophils Absolute Auto 5.6 10^3/uL (1.4-6.5); Neutrophils Percent Auto 65.9 % (43.0-75.0); Platelet Count 197 10^3/uL (150-450); Red Blood Count 4.35 10^6/uL (4.20-5.40); Red Cell Distribution Width 14.2 % (11.0-15.0); White Blood Count 8.4 10^3/uL (4.0-11.0)
[2024-03-28] MEDS: LEVOTHYROXINE SODIUM 112 MCG TABLET 125 MCG PO (05:33)
[2024-03-28 05:43] LABS: Anion Gap 13.7; Carbon Dioxide 27.1 mmol/L (21.0-32.0); Chloride 96 mmol/L (98-107); Glucose 261 mg/dL (74-106); Potassium 3.8 mmol/L (3.5-5.1); Sodium 133 mmol/L (136-145)
[2024-03-28 05:44] LABS: Alanine Aminotransferase 9 U/L (14-59); Albumin Globulin Ratio 0.5; Albumin Level 2.5 g/dL (3.4-5.0); Alkaline Phosphatase 93 U/L (46-116); Aspartate Amino Transferase 10 U/L (15-37); BUN Creatinine Ratio 27.1; Bilirubin Total 0.9 mg/dL (0.2-1.0); Calcium 8.5 mg/dL (8.5-10.1); Estimated GFR (African America 47 (>=60); Estimated GFR (Non-African Ame 39 (>=60); Globulin 4.8 g/dL; Magnesium 1.8 mg/dL (1.8-2.4); Total Protein 7.3 g/dL (6.4-8.2)
[2024-03-28 06:36] LABS: Glucometer 253 mg/dL (74-106)
[2024-03-28] MEDS: INSULIN ASPART 300 UNIT/3 ML PEN SUBQ ×4 (07:53→11:29)
[2024-03-28 08:00] LABS: Glucometer 333 mg/dL (74-106)
[2024-03-28] MEDS: SUCRALFATE 1 GM TABLET PO (08:30)
[2024-03-28] MEDS: CHOLECALCIFEROL (VITAMIN D3) 125 MCG/5,000 UNIT TABLET PO (08:30)
[2024-03-28] MEDS: ATORVASTATIN CALCIUM 20 MG TABLET PO (08:30)
[2024-03-28] MEDS: POTASSIUM CHLORIDE 10 MEQ ER TABLET 20 MEQ PO (08:30)
[2024-03-28] MEDS: DILTIAZEM HCL 120 MG CAP.ER.24H PO (08:30)
[2024-03-28] MEDS: LISINOPRIL 20 MG TABLET PO (08:30)
[2024-03-28] MEDS: SPIRONOLACTONE 25 MG TABLET PO (08:30)
[2024-03-28] MEDS: FISH OIL 1,000 MG CAPSULE 1000 MG PO (08:30)
[2024-03-28] MEDS: FUROSEMIDE 40 MG/4 ML VIAL 80 MG IVP (08:31)
[2024-03-28] MEDS: METOPROLOL TARTRATE 100 MG TABLET 150 MG PO (08:31)
[2024-03-28] MEDS: NYSTATIN 15 GM POWDER 1 APPLIC TOPICAL (08:32)
--- NOTE | 2024-03-28 11:29 | CM.NOTE ---
Rounds made with Dr. Cadet. Dr. Cadet reviewed labs with Kati. Dr. Cadet also explained CHF precautions-weigh daily, same scale, same time..if weight increases >5# call physician. Watch sodium intake. Dr. Cadet also reviewed she needs to increase Lasix 40mg po to BID, also increasing her Aldactone to 50mg daily. Will need to see Cardiology in ~2 weeks and family physician in 1 week. Kati verbalizes understanding.
[2024-03-28 11:34] LABS: Glucometer 256 mg/dL (74-106)
--- NOTE | 2024-03-28 12:15 | PM.DS1 ---
DS: Providers Provider Date of admission: 03/26/24 06:30 Primary care physician: Theodora Cuevas MD DS: Diagnosis Discharge Diagnosis (1) Acute on chronic heart failure with preserved ejection fraction (HFpEF): (2) Diabetes mellitus with hyperglycemia, with long-term current use of insulin: (3) Hypertension: (4) Paroxysmal atrial fibrillation: (5) CKD stage 3a, GFR 45-59 ml/min: (6) Hypothyroidism (acquired): DS: Summary Hospital Course Hospital Course: Reason for admission: See ER note and H&P for details. 78 y/o female to ER with chest tightness and SOB. History of CHF and felt like fluid overload. No edema in legs but c/o increased edema in abdomen. To ER and BNP elevated. Chest x-ray with fluid overload and admitted. Hospital course: Started IV lasix. Echo in June with EF > 55%. Resumed home medication. Patient felt better but BNP elevated and chest x-ray worse. Increased lasix. Patient improved. Edema much improved and abdomen not as distended. Ambulating well. Normal SpO2 on room air. Discharged home in stable condition. Will increase lasix to 40 BID. Increase aldactone to 50 mg daily. Resume other home medication as directed. Follow up with cardiology in 1-2 weeks. Time Spent with Patient Time attestation: Total time spent providing and/or coordinating discharge services: Time spent: greater than 30 minutes Exam Constitutional Vital Signs, click to edit/add: Last Vital Signs Temp 98 F 03/28/24 04:28 Pulse 56 L 03/28/24 10:00 Resp 16 03/28/24 04:28 BP 131/67 03/28/24 08:31 Pulse Ox 95 03/28/24 04:28 O2 Del Method Room Air 03/28/24 04:28 Documenting provider has reviewed patient's vital signs: yes Common normals: no apparent distress, oriented x3 and alert HENMT Common normals: normocephalic Eye Common normals: PERRL and EOMs intact bilaterally Respiratory Common normals: normal respiratory effort and clear to auscultation bilaterally Cardio Common normals: regular rate, regular rhythm, no gallops, no murmurs and no rub GI Common normals: Normal to inspection, nondistended, normoactive bowel sounds present and non-tender Extremity Common normals: no pedal edema DS: Data Data Completed and Pending Labs on day of discharge: Labs from last 24 hours 03/28/24 03/28/24 03/28/24 11:23 07:49 06:35 WBC RBC Hgb Hct MCV MCH MCHC RDW Plt Count MPV Neut % (Auto) Lymph % (Auto) [place] % (Auto) Eos % (Auto) Baso % (Auto) Neut # (Auto) Lymph # (Auto) [place] # (Auto) Eos # (Auto) Baso # (Auto) Abs Immat Gran (auto) Imm/Tot Granulo (auto) Sodium Potassium Chloride Carbon Dioxide Anion Gap BUN Creatinine Est GFR ( Amer) Est GFR (Non-Af Amer) BUN/Creatinine Ratio Glucose Calcium Magnesium Total Bilirubin AST ALT Alkaline Phosphatase NT-Pro-B Natriuret Pep Total Protein Albumin Globulin Albumin/Globulin Ratio POC Glucose 256 H 333 H 253 H 03/28/24 03/27/24 03/27/24 04:54 21:51 19:41 WBC 8.4 RBC 4.35 Hgb 12.6 Hct 40.0 MCV 92.0 MCH 29.0 MCHC 31.5 RDW 14.2 Plt Count 197 MPV 10.5 Neut % (Auto) 65.9 Lymph % (Auto) 21.4 [place] % (Auto) 9.7 Eos % (Auto) 1.7 Baso % (Auto) 0.9 Neut # (Auto) 5.6 Lymph # (Auto) 1.8 [place] # (Auto) 0.8 Eos # (Auto) 0.1 Baso # (Auto) 0.1 Abs Immat Gran (auto) 0.03 Imm/Tot Granulo (auto) 0.4 Sodium 133 L Potassium 3.8 Chloride 96 L Carbon Dioxide 27.1 Anion Gap 13.7 BUN 36.0 H Creatinine 1.33 H Est GFR ( Amer) 47 L Est GFR (Non-Af Amer) 39 L BUN/Creatinine Ratio 27.1 Glucose 261 H Calcium 8.5 Magnesium 1.8 Total Bilirubin 0.9 AST 10 L ALT 9 L Alkaline Phosphatase 93 NT-Pro-B Natriuret Pep 3338.0 H* Total Protein 7.3 Albumin 2.5 L Globulin 4.8 Albumin/Globulin Ratio 0.5 POC Glucose 161 H 119 H 03/27/24 03/27/24 16:28 13:01 WBC RBC Hgb Hct MCV MCH MCHC RDW Plt Count MPV Neut % (Auto) Lymph % (Auto) [place] % (Auto) Eos % (Auto) Baso % (Auto) Neut # (Auto) Lymph # (Auto) [place] # (Auto) Eos # (Auto) Baso # (Auto) Abs Immat Gran (auto) Imm/Tot Granulo (auto) Sodium Potassium Chloride Carbon Dioxide Anion Gap BUN Creatinine Est GFR ( Amer) Est GFR (Non-Af Amer) BUN/Creatinine Ratio Glucose Calcium Magnesium Total Bilirubin AST ALT Alkaline Phosphatase NT-Pro-B Natriuret Pep Total Protein Albumin Globulin Albumin/Globulin Ratio POC Glucose 322 H 341 H Discharge Plan Discharge Disposition: Home, Self-Care Condition: Fair Discharge Medications: New furosemide 40 mg tablet 40 mg PO BID Qty: 60 0RF spironolactone 50 mg tablet 50 mg PO DAILY Qty: 30 0RF Continued alprazolam 0.25 mg tablet 0.25 mg PO TID PRN (Reason: anxiety) atorvastatin 20 mg tablet 20 mg PO DAILY cholecalciferol (vitamin D3) 125 mcg (5,000 unit) capsule 5,000 unit PO DAILY diltiazem HCl 120 mg capsule,extended release 24hr 120 mg PO Q24H famotidine 20 mg tablet 20 mg PO BEDTIME PRN (Reason: heartburn) insulin glargine [Lantus Solostar U-100 Insulin] 100 unit/mL (3 mL) insulin pen 35 unit SUBCUT BEDTIME levothyroxine 112 mcg tablet 112 mcg PO DAILY lisinopril 20 mg tablet 20 mg PO DAILY metoprolol tartrate 100 mg tablet 150 mg PO BID oxycodone-acetaminophen 5-325 mg tablet 1 tab PO BID PRN (Reason: pain) Patient Comments: X 30 DAYS selenium 200 mcg capsule 200 mcg PO DAILY Xarelto 20 mg tablet 20 mg PO QPM Rx Instructions: must administer with evening meal biotin 5 mg capsule 5 mg PO DAILY dapagliflozin propanediol [Farxiga] 10 mg tablet 10 mg PO DAILY Patient Comments: new med not started yet insulin asp prt-insulin aspart [Novolog Mix 70-30FlexPen U-100] 100 unit/mL (70-30) insulin pen 35 unit subcut DAILY Rx Instructions: USE DIRECTED PER SLIDING SCALE- MAX 35 UNITS DAILY sucralfate [Carafate] 1 gram tablet 1 g PO BID Discontinued spironolactone [Aldactone] 25 mg tablet 25 mg PO DAILY furosemide 40 mg tablet 40 mg PO DAILY 30 Days Qty: 30 0RF Activity: increase activity as tolerated Diet: advance to your usual diet Print Language: Portuguese Patient Instructions: Heart Failure (DC) Forms: Portal Instructions Follow Up Appointments: . April 03 @ 11:30am with Dr. Cuevas [phone] Sun. April 09 @ 9:30am with [facility] at [facility] [phone]
--- NOTE | 2024-03-31 13:06 | CM.DCFOLLOWU ---
Person spoke with: Kati How are you feeling? Still resting a lot How is your pain? No pain Did you understand your discharge instructions? Yes Do you have any questions about your discharge instructions? No Were you given any prescriptions at discharge? Yes Were you able to get your prescriptions filled? Yes Do you understand how to take your medications as ordered? Yes but feel I am taking too many medications. Suggested to pt to take all pill bottles with her to appt with Dr. Cuevas and have discussion with her regarding medications. Do you have any questions about your follow up appointment and do you plan to keep your follow up appointment? No I will see Dr. Cuevas this week Is there anything else that you would like to discuss? No Questions/Comments/Concerns/Other:
== END 2024-03-28 12:40 | disposition home or self-care (01) ==
LOC: ER 06:24 → ICU 06:31 → MS 12:05
PROVIDERS: Admitting Provider Nurse Practitioner; Emergency Provider Internal Medicine; PCP Family Medicine; Visit Provider Family Medicine
DX: I13.0 Hypertensive heart and chronic kidney disease with heart failure and stage 1 through stage 4 chronic kidney disease, or unspecified chronic kidney disease (principal); I50.33 Acute on chronic diastolic (congestive) heart failure; N18.31 Chronic kidney disease, stage 3a; E11.22 Type 2 diabetes mellitus with diabetic chronic kidney disease; E11.65 Type 2 diabetes mellitus with hyperglycemia; I16.0 Hypertensive urgency; E87.6 Hypokalemia; I48.0 Paroxysmal atrial fibrillation; E11.42 Type 2 diabetes mellitus with diabetic polyneuropathy; E03.9 Hypothyroidism, unspecified; Z85.3 Personal history of malignant neoplasm of breast; E66.9 Obesity, unspecified; Z90.13 Acquired absence of bilateral breasts and nipples; Z79.899 Other long term (current) drug therapy; Z79.4 Long term (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 insulin; Z79.01 Long term (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 anticoagulants; Z79.890 Hormone replacement therapy; Z68.41 Body mass index [BMI] 40.0-44.9, adult
CPT/HCPCS: 36415; 51702; 71045; 71046; 80048; 80053; 82948; 83036; 83735; 83880; 84439; 84443; 84484; 85025; 93005; 93306; 96365; 96375; 96376; 99284; G0378

== ENCOUNTER 2024-04-30 04:42 | Observation (INO) | payer MEDICARE, SELFPAY ==
[2024-04-30] VITALS (29 sets, daily range): BP systolic 91–150; BP diastolic 39–79; PULSE 54–72; TEMP 36.4–36.6; O2SAT 94–100; BMI 40.4; BMI 41.6
--- NOTE | 2024-04-30 04:53 | ECG_ITS ---
[facility] Test Date: 2024-04-30 Pat Name: JOE CALL Department: Room: Gender: Female Float Operator: : 1945 Requested By: SHANTEL STEVEN Order Number: [id number] Reading MD: SHEBA POWELL Measurements Intervals [place] Rate: 57 P: 76 CA: 180 QRS: 21 QRSD: 100 T: 69 QT: 434 QTc: 427 Interpretive Statements 1100 Sinus rhythm 1102 Sinus arrhythmia 9110 normal ECG Compared to ECG 03/26/2024 05:08:37 No significant changes Electronically Signed On 04-30-2024 22:31:45 EDT by SHEBA POWELL
[2024-04-30 05:01] LABS: Glucometer 275 mg/dL (74-106)
--- OUTSIDE RECORDS SUMMARY | 2024-04-30 05:01 | XMS_ITS ---
Patient Summarization (C-CDA 2.1 CCD) Created on: April 30, 2024 Joe Call : 1945 Sex: Female Author Organization Sample organization Care Team Providers Care Safety And Security Officer Name Role Phone UNKNOWN, PROVIDER Unavailable Unavailable UNKNOWN, PROVIDER Unavailable Unavailable NIC BRYAN Unavailable Unavailable Akbar Cui II Unavailable SHANTEL STEVEN Primary Care Physician Shantel Steven Unavailable DR SHANTEL STEVEN Primary Care Unavailable YAMEL MCCRACKEN Consulting Unavailable YAMEL MCCRACKEN Admitting Unavailable YAMEL MCCRACKEN Attending Unavailable MISC, DR MENA Consulting Unavailable MISC, DR MENA Admitting Unavailable MISC, DR MENA Attending Unavailable TENISHA, DR SHANTEL Alvarado Primary Care Unavailable TENISHA, DR SHANTEL Alvarado Primary Care Unavailable STEVEN, DR SHANTEL Alvarado Admitting Unavailable STEVEN, DR SHANTEL Alvarado Attending Unavailable TENISHA, DR [...] Care Unavailable SAMANTHA, DR LINDA Cramer Consulting Unavailabl e SAMANTHA, DR LINDA Cramer Admitting Unavailabl e SAMANTHA, DR LINDA Cramer Attending Unavailabl e ANALISA WHYTE Consulting Unavailable CESAR ., LD Admitting Unavailable CESAR .LD Attending Unavailable TENISHA, DR SHANTEL Alvarado Primary Care Unavailable LEATHA ALVAREZ Consulting Unavailable RENETTA WALLACE Consulting Unavailable CESAR ., LD Consulting Unavailable YAMEL MCCRACKEN Admitting Unavailable YAMEL MCCRACKEN Attending Unavailable TENISHA, DR SHANTEL Alvarado Primary Care Unavailable TENISHA, DR SHANTEL Alvarado Primary Care Unavailable TENISHA, DR SHANTEL Alvarado Admitting Unavailable TENISHA, DR SHANTEL Alvarado Attending Unavailable DR SHANTEL STEVEN Consulting Unavailable Jaleesa Vanessa Unavailable ENZO BARNES Attending Unavailable RICA MEDRANO Attending Unavailable RICA MEDRANO Attending Unavailable ENZO BARNES Attending Unavailable MD Shantel Steven Primary Care Provider MD Shantel Steven Other Provider MD Eloina Hussein Attending Provider MD Eloina Hussein Referring Provider [phone] Shantel Steven Consulting Unavailable Shantel Steven Primary Care Unavailable Eloina Hussein Referring Unavailable Eloina Hussein Attending Unavailable Eloina Hussein Admitting Unavailable Allergies Allergy Classification Reported Allergen(s) Allergy Type Date of Onset Reaction(s) Facility (1 source) Iodine (And Iodine Containting Drugs) Drug allergy (disorder) 03-04-20 12 [facility] Repository (20 sources) Shellfish; 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: [Shellfish] Food allergy (disorder) 03-04-20 12 rash, Eruption of skin (disorder) [facility] Rep[facility] (7 sources) Sulfonamides (Antibiotic); 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: [SULFA (SULFONAMIDE ANTIBIOTICS)] Drug allergy (disorder) 03-04-20 12 Rash [facility] (20 sources) Sulfacetamide Drug Allergy 02-15-20 24 diarrhea [facility] (13 sources) Contrast media; 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: [contrast media (iodine-based)] Drug allergy Unknown (qualifier value) [facility] [place] (2 sources) Sulfonamides (Antibiotic); 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: [sulfa drugs] Drug allergy Diarrhea (finding) [facility] (2 sources) Glucosamine Drug Allergy [facility] (2 sources) Iodine (And Iodine Containting Drugs) Drug allergy (disorder) 08-09-20 17 [facility] (11 sources) Contrast media Propensity to adverse reactions 11-18-[address] [facility] [employer] [employer] Other (12 sources) Iodine; 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: [IODINE] Drug Allergy 10-30-20 14 Unknown [facility] Rep[facility] (11 sources) Substance with sulfonamide structure and antibacterial mechanism of action (substance) Drug allergy Unknown [facility] [employer] Other (11 sources) Dyes Propensity to adverse reactions Comment:CT Dyes,Dyes,IVP Dyes [facility] Other (5 sources) Shellfish; 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: [SHELLFISH DERIVED] Allergy to substance 10-30-[address] [facility] (5 sources) Iodinated Contrast Media; 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: [IODINATED CONTRAST MEDIA] Allergy to substance 02-15-20 [facility] (1 source) Chocolate; 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: [CHOCOLATE FLAVOR] Propensity to adverse reactions to drug (disorder) 01-17-20 [facility] Rep[facility] (1 source) Sulfacetamide Drug Allergy 02-15-20 [facility] Repository (1 source) Sulfonamides (Antibiotic) Drug allergy (disorder) 02-15-20 [facility] Repository Encounters Encounter Date Encounter Type Care Provider Facility Start: 04-03-2024 End: 04-03-2024 ambulatory MD Shantel Steven Work Phone: [facility] Work Phone: Start: 04-03-2024 End: 04-03-2024 Patient encounter procedure MD Shantel Steven Work Phone: [facility] Work Phone: Start: 04-01-2024 Non-patient / Non-visit MD Alessia Steven Work Phone: [facility] Work Phone: Start: 03-31-2024 Non-patient / Non-visit MD Alessia Steven Work Phone: [facility] Work Phone: Start: 03-28-2024 Non-patient / Non-visit MD Alessia Steven Work Phone: [facility] Work Phone: Start: 03-27-2024 Non-patient / Non-visit MD Alessia Steven Work Phone: [facility] Work Phone: Start: 03-26-2024 Non-patient / Non-visit MD Alessia Steven Work Phone: [facility] Physician [facility] [place] Work Phone: Start: 03-25-2024 End: 03-25-2024 Patient encounter procedure MD Shantel Steven Work Phone: [facility] Physician [facility] Work Phone: Start: 03-13-2024 End: 03-13-2024 ambulatory MD Shantel Steven Work Phone: [facility] Work Phone: Start: 03-13-2024 End: 03-13-2024 Patient encounter procedure MD Shantel Steven Work Phone: [facility] [address] Work Phone: Start: 03-07-2024 End: 03-07-2024 ambulatory [facility] Start: 02-19-2024 ambulatory Facility:[facility] Start: 02-15-2024 End: 02-15-2024 ambulatory [facility] Work Phone: Start: 02-15-2024 End: 02-15-2024 Patient encounter procedure [facility] Physician [facility] Work Phone: Start: 01-29-2024 Non-patient / Non-visit [facility] Physician [facility] Work Phone: Start: 01-24-2024 Non-patient / Non-visit [facility] Physician [facility] [place] Work Phone: Start: 01-22-2024 Non-patient / Non-visit [facility] Physician [facility] [place] Work Phone: Start: 01-18-2024 End: 01-18-2024 Patient encounter [address] [facility] Work Phone: Start: 01-15-2024 Non-patient / Non-visit [facility] Physician [facility] [place] Work Phone: Start: 01-04-2024 Non-patient / Non-visit [facility] Physician [facility] Work Phone: Start: 12-18-2023 End: 12-18-2023 ambulatory Shantel Steven Other [employer] Other Start: 12-18-2023 Telephone encounter Shantel Steven [facility] Start: 11-19-2023 End: 11-19-2023 ambulatory Shantel Steven Other [employer] Other Start: 11-19-2023 Telephone encounter Shantel Steven [facility] Start: 10-23-2023 End: 10-23-2023 ambulatory Azghassan Kochs Other [employer] Other Start: 10-23-2023 Office outpatient ne w 30 minutes Aziz Bakhous [facility] Start: 10-22-2023 End: 10-22-2023 ambulatory Shantel Steven Other [employer] Other Start: 10-22-2023 Telephone encounter Shantel Steven [facility] Start: 10-18-2023 End: 10-18-2023 ambulatory Shantel Steven Other [employer] Other Start: 10-18-2023 Office outpatient vi sit 15 minutes Shantel Steven [facility] Start: 09-07-2023 End: 09-07-2023 ambulatory Shantel Steven Other [employer] Other Start: 09-07-2023 Telephone encounter Shantel Steven [facility] Start: 09-04-2023 End: 09-04-2023 ambulatory Shantel Steven Other [employer] Other Start: 09-04-2023 Office outpatient vi sit 25 minutes Shantel Steven [facility] Start: 08-23-2023 End: 08-23-2023 ambulatory Shantel Steven Other [employer] Other Start: 08-23-2023 Telephone encounter Shantel Steven [facility] Start: 08-17-2023 End: 08-17-2023 ambulatory [facility] Start: 07-23-2023 Telephone encounter Shantel Steven [facility] Start: 07-23-2023 End: 07-23-2023 ambulatory [facility] [employer] Other Start: 07-17-2023 End: 07-17-2023 ambulatory Shantel Steven Other [employer] Other Start: 07-17-2023 Office outpatient vi sit 25 minutes Shantel Steven [facility] Start: 05-30-2023 End: 05-30-2023 ambulatory Shantel Steven Other [employer] Other Start: 05-30-2023 Telephone encounter Shantel Steven [facility] Start: 05-22-2023 End: 05-22-2023 ambulatory Shantel Steven Other [employer] Other Start: 05-22-2023 Telephone encounter Shantel Steven [facility] Start: 05-16-2023 End: 05-16-2023 ambulatory Shantel Steven Other [employer] Other Start: 05-16-2023 Telephone encounter Shantel Steven [facility] Start: 05-07-2023 End: 05-07-2023 ambulatory Shantel Steven Other [employer] Other Start: 05-07-2023 Telephone encounter Shantel Steven [facility] Start: 04-30-2023 End: 04-30-2023 ambulatory Shantel Steven Other [employer] Other Start: 04-30-2023 Office outpatient vi sit 25 minutes Shantel Steven [facility] Start: 04-25-2023 End: 04-25-2023 ambulatory RICA MEDRANO [employer] Other Start: 04-25-2023 Telephone encounter Shantel Steven [facility] Start: 04-12-2023 End: 04-12-2023 ambulatory Shantel Steven Other [employer] Other Start: 04-12-2023 Telephone encounter Shantel Steven [facility] Start: 03-09-2023 End: 03-09-2023 ambulatory Shantel Steven Other [employer] Other Start: 03-09-2023 Office outpatient vi sit 15 minutes Shantel Steven [facility] Start: 03-07-2023 End: 03-07-2023 ambulatory Shantel Steven Other [employer] Other Start: 03-07-2023 Telephone encounter Shantel Steven [facility] Start: 03-06-2023 End: 03-06-[address] SHANTEL STEVEN Facility:[facility] Start: 03-05-2023 End: 03-05-2023 ambulatory Shantel Steven Other [employer] Other Start: 03-05-2023 Telephone encounter Shantel Steven [facility] Start: 02-26-2023 End: 02-26-2023 ambulatory Shantel Steven Other [employer] Other Start: 02-26-2023 Telephone encounter Shantel Steven [facility] Start: 02-24-2023 End: 02-24-[address] SHANTEL STEVEN Facility:[facility] Start: 02-23-2023 End: 02-23-2023 ambulatory Shantel Steven Other [employer] Other Start: 02-23-2023 Telephone encounter Shantel Steven [facility] Start: 02-20-2023 End: 02-20-2023 ambulatory Shantel Steven Other [employer] Other Start: 02-20-2023 Transitional care [facility] 14 day discharge Shantel Steven [facility] Start: 02-16-2023 End: 02-16-2023 ambulatory Shantel Steven Other [employer] Other Start: 02-16-2023 Telephone encounter Shantel Steven [facility] Start: 02-13-2023 End: 02-14-[address] SHANTEL STEVEN Facility:[facility] Start: 02-02-2023 End: 02-02-2023 ambulatory Shantel Steven Other [employer] Other Start: 02-02-2023 Telephone encounter Shantel Steven [facility] Start: 01-16-2023 End: 01-17-[address] DOCTOR CARMONA Facility:[facility] Start: 01-05-2023 End: 01-05-2023 ambulatory BIN ROJAS Facility:[facility] Start: 01-01-2023 End: 01-02-2023 ambulatory ANALISA WHYTE Facility:[facility] Start: 11-29-2022 End: 11-29-2022 ambulatory Shantel Steven Other [employer] Other Start: 11-29-2022 Telephone encounter Shantel Steven [facility] Start: 11-27-2022 End: 11-27-2022 ambulatory Shantel Steven Other [employer] Other Start: 11-27-2022 Telephone encounter Shantel Tenisha [facility] Start: 11-24-2022 End: 11-24-2022 ambulatory Shantel Steven Other [employer] Other Start: 11-24-2022 Telephone encounter Shantel Steven [facility] Start: 12-26-2022 ambulatory YAMEL MCCRACKEN Facility :[facility] Start: 09-15-2022 End: 09-16-[address] SHANTEL STEVEN Facility:[facility] Start: 08-04-2022 End: 08-04-2022 Patient encounter procedure Bin SORENSON General Surgery Lauren[facility]Adenike [facility] Start: 05-02-2022 End: 05-02-[address] SHANTEL STEVEN Facility:[facility] Start: 08-25-2021 Office outpatient ne w 45 minutes Akbar Cui II [facility] Start: 08-09-2017 End: 08-12-2017 Ambulatory PROVIDER UNKNOWN Facility:[facility] Medical Equipment Procedure Code Equipment Code Equipment Origin al Text Equipment Identifier Dates Blood Sugar Diagnostic (True Metrix Glucose Test Strip) strip Start: 03-31-2024 Pen Needle, Diab etic (Comfort Ez Pen [place]) 33 gauge x 5/32 needle Start: 03-25-2024 Blood Sugar Diagnostic (True Metrix Glucose Test Strip) strip Start: 03-31-2024 End: 03-31-2024 Immunizations Immunization Date Immunization Notes Care Provider Fa aga 01-18-2024 Pneumococcal Conjugate Vaccine, 20 valent [facility] 09-04-2023 influenza, high dose seasonal, preservative-free Shantel Steven Other [employer] Other 09-04-2023 influenza virus vaccine, unspecified formulation [facility] 02-04-2021 COVID-19 mRNA, Comirnaty (Pfizer) [facility] 01-21-2021 COVID-19 mRNA, Comirnaty (Pfizer) [facility] 10-09-2018 influenza virus vaccine, split virus (incl. purified surface antigen) Shantel Steven Other [employer] Other 10-09-2018 influenza virus vaccine, unspecified formulation [facility] NEGATED: Highlighted row has not occurred!08-21-2019 influenza virus vaccine, split virus (incl. purified surface antigen) Shantel Steven Other [employer] Other Medications Current Medications Medication Drug Class(es) Dates Sig (Normalized) Sig (Original) 8 Hour Arthritis Pain Reliever (14 sources) ascorbic acid 113 mg / copper gluconate 0.4 mg / docosahexaenoic acid 87.5 [...] 12:00am B-12 (1 source) Start: 03-07-2021 B-12 Refills(s) 0 Start Date: 03/07/21 Status: Ordered cholecalciferol 0.125 mg oral capsule (9 sources) Vitamin D Start: 01-17-2024 take 125 ug by mouth once daily Cholecalciferol (Vitamin D3) Active 125 MCG PO Daily January 17, 2024 1:00am take 1 capsule by [facility] every twenty-four hours Vitamin D3 125 MCG (5000 UT) 1 capsule Orally Once a day Active take 1 capsule by mo [facility] every twenty-four hours Vitamin D3 25 MCG (1000 UT) 1 capsule Orally Once a day Active cholestyramine resin 4000 mg powder for oral suspension (1 source) Bile Acid Sequestrant Start: 03-07-2021 Questran 4 g/9 g oral powder = 1 packet(s), Oral, Daily, # 30 EA, Refills(s) 11, Pharmacy: [id number], 165.1, cm, 03/07/21 13:49:00 EDT, Height/Length Dosing, 121.8, kg, 03/07/21 13:49:00 EDT, Weight Dosing Start Date: 03/07/21 Status: Ordered Dilt-CD 120 mg (14 sources) take 1 [...] 2021 12:00am take 1 capsule by mo uth every twelve hours dilTIAZem HCl ER 120 MG 1 capsule Orally Twice a day Active famotidine 20 mg oral tablet (20 sources) Histamine-2 Receptor Antagonist Start: 01-17-2024 take 20 mg by mouth once daily at bedtime Famotidine Active 20 MG PO Daily at bedtime January 17, 2024 1:00am Start: 01-07-2023 take 1 tablet by joesph th every twenty-four hours Famotidine 20 MG 1 [...] Status: Ordered take 1 tablet by joesph th every twenty-four hours Lasix 40 MG 1 tablet Orally Once a day Active 3 ml insulin isophane, human 100 unt/ml pen injector (3 sources) Start: 01-24-2024 inject 14 [IU] by [...] 14 unit ketoconazole 20 mg/ml topical cream (3 sources) Azole Antifungal Start: 02-15-2024 Ketoconazole Active 1 APPLIC TOPICAL Daily February 15, 2024 12:00am Lantus Solostar Pen (1 source) Start: 07-27-2022 inject 35 [IU] by subcutaneous injection once daily at bedtime Lantus Solostar Pen 35 unit(s), SubCutaneous, Once a day (at bedtime), Refill(s) 0 Start Date: 07/27/22 Status: Ordered levothyroxine sodium 0.125 mg oral tablet (20 sources) l-Thyroxine Start: 04-03-2024 take 125 ug by mouth once daily Levothyroxine Active 125 MCG PO Daily April 03, 2024 12:00am Start: 06-11-2021 End: 04-03-2024 take 112 ug by mouth once daily Levothyroxine Discontinued 112 MCG PO Daily June 11, 2021 12:00am April 03, 2024 12:05pm Start: 03-07-2021 take 112 ug by mouth [...] tablet by joesph th every twenty-four hours nystatin [id number] unt/ml topical cream (19 sources) Polyene Antifungal Start: 01-17-2024 Nystatin Ac tive 1 APPLIC TOPICAL Twice daily January 17, 2024 1:00am Nystatin [id number] UNIT/GM 1 application Externally Twice a day for 10 days Active Nystatin 767584 UNIT/GM 1 application Externally Twice a day for 10 days Active 24 hr oxybutynin chloride 10 mg extended release oral tablet (3 sources) Cholinergic Muscarinic Antagonist Start: 02-15-2024 take [...] PreserVision AREDS (1 source) Start: 07-27-2022 PreserVision A REDS Refill(s) 0 Start Date: 07/27/22 Status: Ordered rivaroxaban 20 mg oral tablet (20 sources) Factor Xa Inhibitor Start: 06-12-2021 take 1 tablet by mouth once daily Rivaroxaban (Xarelto) 20 mg Tablet Active 20 MG PO Daily June 12, 2021 12:00am take 0.5 tablet by mouth once da meliton Xarelto 10 MG 1/2 tablet Orally Once a day for 90 days Active Selenium 200 MCG (4 sources) take 1 tablet by mouth once daily Selenium 200 MCG 1 tablet Orally Once a day Active spironolactone 25 mg oral tablet (20 sources) Aldosterone Antagonist Start: 01-17-20 take 25 mg by mouth once daily Spironolactone Active 25 MG PO Daily January 17, 2024 1:00am take 1 tablet by joesph th every twenty-four hours Spironolactone 25 MG 1 tablet Orally Onc e a day Active True Metrix Blood Glucose [...] capsule Orally Once a day Active Vitamins A,C,I-Ybst-Wywcbc (Preservision Areds) 4,296 mcg-226 mg-90 mg capsule (3 sources) Start: 01-17-2024 take 1 capsule by mouth twice daily Vitamins A,C,C-Kmuo-Hqjsnx (Preservision Areds) 4,296 mcg-226 mg-90 mg capsule Active 1 CAP PO Twice daily January 17, 2024 1:00am Completed/Discontinued Medications Medication Drug Class(es) Dates Sig (Normalized) Sig (Original) acetaminophen 325 mg / oxyCODONE hydrochloride 5 mg oral tablet (20 sources) Opioid Agonist Start: 01-04-2024 End: 03-03-2024 take 1 tablet by mouth twice daily Oxycodone-Acetamino phen Discontinued 1 TAB PO Twice daily 60 30 January 04, 2024 March 03, 2024 4:30pm Start: 11-19-2023 take 1 tablet by joesph [...] Start: 07-23-2023 take 1 tablet by joesph twice daily oxyCODONE-Acetaminophen 5-325 MG 1 table t Orally two times daily for 30 days Jul, Active Start: 07-17-2023 take 1 tablet by [facility] twice daily oxyCODONE-Acetaminophen 5-325 MG 1 table t Orally two times daily for 30 days Jul, Active Start: 05-22-2023 Start: 04-03-2023 take 1 tablet by [facility] twice daily oxyCODONE-Acetaminophen 5-325 MG 1 table t Orally two times daily for 30 days March, Active Start: 02-02-2023 take 1 tablet by [facility] twice daily oxyCODONE-Acetaminophen 5-325 MG 1 table t Orally two times daily for 30 days Jan, Active Start: 11-30-2022 take 1 tablet by [facility] twice daily oxyCODONE-Acetaminophen 5-325 MG 1 table t Orally two times daily for 30 days Nov, Active Start: 07-27-2022 take 1 tablet by [facility] twice daily acetaminophen-oxycodone 325 mg-2.5 mg or al tablet 1 tab(s), Oral, BID, Refill(s) 0 Start Date: 07/27/22 Status: Ordered Start: 06-12-2021 End: 06-19-2021 take 1 tablet by mouth twice daily Oxycodone-Acetaminophen Discontinued 1 T AB PO Twice daily June 12, 2021 12:00am June 19, 2021 3:13am [id number] 200 actuat albuterol 0.09 mg/actuat metered dose inhaler (8 sources) beta2-Adrenergic Agonist Start: 01-17-2024 End: 04-03-2024 take 1 puff(s) by inhalation every four hours Albuterol Sulfate Discontinued 2 PUFF INHALATION Every 4 hours January 17, 2024 1:00am April 03, 2024 11:36am Start: 10-18-2023 take 2 puff(s) by in halation every four hours as needed Albuterol Sulfate HFA 108 (90 Base) MCG/ACT 2 puff Inhalation every 4 hrs prn Oct, Active ALPRAZolam 0.25 mg oral tablet (20 sources) Benzodiazepine Start: 01-30-2024 End: 03-25-2024 take 0.25 mg by mouth twice daily Alprazolam Discontinued 0.25 MG PO Twice daily January 30, 2024 12:55pm March 25, 2024 3:46pm Start: 01-17-2024 End: 01-30-2024 take 0.25 mg by mouth three times daily Alprazolam Discontinued 0.25 MG PO Three times daily January 17, 2024 1:00am January 30, 2024 12:56pm Start: 12-03-2023 ALPRAZolam 0.2 5 mg TAKE 1 TABLET BY MOUTH THREE TIMES DAILY NEEDED *MUST LAST 30 DAYS* for 30 Nov, Active Start: 10-02-2023 take 1 tablet by joesph three times daily as needed ALPRAZolam 0.25 MG 1 tablet Orally three times daily, as needed for 30 days Sep, Active Start: 08-23-2023 take 1 tablet by joesph th three times daily as needed ALPRAZolam 0.25 MG 1 tablet Orally three times daily, as needed for 30 days Aug, Active Start: 07-23-2023 take 1 tablet by joesph th three times daily as needed ALPRAZolam 0.25 MG 1 tablet Orally three times daily, as needed for 30 days Jul, Active Start: 06-12-2023 take 1 tablet by joesph th three times daily as needed ALPRAZolam 0.25 MG 1 tablet Orally three times daily, as needed for 30 days Jun, Active Start: 05-30-2023 Start: 05-22-2023 Start: 04-13-2023 take 1 tablet by joesph th three [...] Refills(s) 0 Start Date: 07/27/22 Status: Ordered amitriptyline hydrochloride 10 mg oral tablet (12 sources) Tricyclic Antidepressant take 1 tablet by mouth every twenty-four hours Amitriptyline HCl 10 MG 1 tablet at bedtime Orally Once a day Not-Taking amylase 479094 unt / lipase 91123 unt / protease 57533 unt delayed release oral capsule (4 sources) Start: End: Jydyjp-Lbgszond-Lls lase (Creon) 24,000-76,000 -120,000 unit capsule,delayed release(DR/EC) Discontinued 1 - 2 CAP PO 1-2 TIMES DAILY June 11, 2021 12:00am June 19, 2021 3:12am Start: 05-10-2021 Creon 24,000 u nits oral delayed release capsule See Instructions, take 3 caps with each meal and 2 caps with each snack., # 390 caplet(s), Refills(s) 0, Pharmacy: [id number], 165.1, cm, 04/18/21 13:02:00 EDT, Height/Length Dosing, 116.4, kg, 04/18/21 13:02:00 EDT, Weight Dosing Start Date: 05/10/21 Status: Ordered biotin 5 mg oral capsule (7 sources) Start: 01-17-2024 End: 04-03-2024 take 5 mg by mouth once daily Biotin Discontinued 5 MG PO Daily January 17, 2024 1:00am April 03, 2024 11:46am take 1 capsule by mo [facility] every twenty-four hours Biotin 5 MG 1 capsule Orally Once a day Active carvedilol 6.25 mg oral tablet (3 sources) alpha-Adrenergic Khadijah, beta-Adrenergic Khadijah Start: 06-12-2021 End: 01-17-2024 take 6.25 mg by mouth twice daily at mealtime Carvedilol Discontinued 6.25 MG PO Twice daily with meals June 12, 2021 12:00am January 17, 2024 5:18pm cefdinir 300 mg oral capsule (3 sources) Cephalosporin Antibacterial Start: 06-12-2021 End: 01-17-2024 take 300 mg by mouth twice daily Cefdinir Discontinued 300 MG PO Twice daily 10 June 12, 2021 12:00am January 17, 2024 5:18pm dapagliflozin 10 mg oral tablet (14 sources) Sodium-Glucose Cotransporter 2 Inhibitor Start: 01-22-2024 End: 04-03-2024 take 1 tablet by mouth once daily Dapagliflozin Propanediol (Farxiga) 10 mg tablet Discontinued 10 MG PO Daily January 29, 2024 12:00am April 03, 2024 11:42am FARXIGA Active Dapagliflozin Pr opanediol 10 MG 1 tablet once a day Active fluconazole 100 mg oral tablet (3 sources) Azole Antifungal Start: 06-12-2021 End: 01-17-2024 take 100 mg by mouth once daily Fluconazole Discontinued 100 MG PO Daily 05 18June 12, 2021 12:00am January 17, 2024 5:18pm Garlic (20 sources) Non-Standardized Food Allergenic Extract Start: 01-17-2024 End: 04-03-2024 take 100 mg by mouth once daily Garlic Discontinued 100 MG PO Daily January 17, 2024 1:00am April 03, 2024 11:47am Start: 01-17-2024 take 100 mg by mouth once mayte y Garlic Active 100 MG PO Daily January 17, 2024 1:00am Garlic 10 MG as directed Orally ONCE A DAY Active 3 ml insulin aspart protamine, human 70 [...] Insulin) 100 unit/mL (3 mL) Insulin Pen (3 sources) Start: 06-12-2021 End: 01-15-2024 inject 14 [...] Insulin) 100 unit/mL (3 mL) insulin pen (6 sources) Start: 01-16-2024 End: 01-24-2024 inject 14 [...] 15, 2024 3:26pm January 16, 2024 3:13pm 3 ml insulin glargine 100 unt/ml pen injector (20 sources) Insulin Analog Start: 03-25-2024 End: 04-03-2024 Insulin Glargine (Lantus Solostar U-100 Insulin) 100 unit/mL (3 mL) insulin pen Discontinued 20 UNIT SUBCUT Every morning March 25, 2024 12:00am April 03, 2024 11:47am Start: 01-17-2024 End: 03-25-2024 inject 35 [IU] by subcutaneous injection once daily in the evening Insulin Glargine (Lantus U-100 Insulin) 100 unit/mL solution Discontinued 35 UNIT SUBCUT Every evening March 13, 2024 5:10pm March 25, 2024 4:20pm Start: 06-12-2021 End: 01-17-2024 inject 40 [IU] by subcutaneous injection once daily in the evening Insulin Glargine (Lantus U-100 Insulin) 100 unit/mL solution Discontinued 40 UNIT SUBCUT Every evening June 12, 2021 12:00am January 17, 2024 5:19pm Lantus SoloStar 100 UNIT/ML as directed Subcutaneous 35 UNITS Active Lantus SoloStar 100 UNIT/ML as directed Subcutaneous 25units Active ketorolac tromethamine 5 mg/ml ophthalmic solution (3 sources) Nonsteroidal Anti-inflammatory Drug, Cyclooxygenase Inhibitor Start: 06-11-2021 End: 06-12-2021 Ketorolac Discontinued DROPS SOLUTION/ DROPS June 11, 2021 12:00am June 12, 2021 3:16am meloxicam 15 mg oral tablet (12 sources) Nonsteroidal Anti-inflammatory Drug Start: 08-25-2021 take 1 tablet by mouth every twenty-four hours Mobic 15 MG 1 tablet Orally Once a day for 30 day(s) Aug, Not-Taking metroNIDAZOLE 500 mg oral tablet (20 sources) Nitroimidazole Antimicrobial Start: 01-30-2024 End: 03-25-2024 take 1 tablet by mouth three times daily Metronidazole Discontinued 0 .ROUTE .COMPLEX January 30, 2024 12:55pm March 25, 2024 3:47pm TAKE 1 TABLET BY MOUTH THREE TIMES [...] tablet by joesph th every eight hours Wayne 8-Hag-Ijv-Fish Oil (Fish Oil) 1,000 mg (120 mg-180 mg) capsule (3 sources) Start: 01-17-2024 End: 04-03-2024 take 1 capsule by mouth once daily Wayne 4-Gkt-Lvp-Fish Oil (Fish Oil) 1,000 mg (120 mg-180 mg) capsule Discontinued 1 CAP PO Daily January 17, 2024 1:00am April 03, 2024 11:49am Start: 01-17-2024 take 1 capsule by mo wvh once daily Wayne 8-Api-Yyv-Fish Oil (Fish Oil) 1,000 mg (120 mg-180 mg) capsule Active 1 CAP PO Daily January 17, 2024 1:00am selenomethionine 0.2 mg oral tablet (3 sources) Start: 01-17-2024 End: 04-03-2024 take 200 ug by mouth once daily Selenomethionine Discontinued 200 MCG PO Daily January 17, 2024 1:00am April 03, 2024 11:51am sucralfate 1000 mg oral tablet (14 sources) Aluminum Complex Start: 01-17-2024 End: 04-03-2024 take 1 g by mouth twice daily Sucralfate Discontinued 1 GM PO Twice daily January 17, 2024 1:00am April 03, 2024 11:49am Start: 03-23-2023 take 1 tablet by joesph every twelve hours take 1 tablet by joesph every twelve hours Sucralfate 1 GM 1 tablet on an empty stomach Orally Twice a day Active 24 hr venlafaxine 37.5 mg extended release oral capsule (3 sources) Serotonin and Norepinephrine Reuptake Inhibitor Start: 06-11-2021 End: 01-17-2024 take 37.5 mg by mouth once daily Venlafaxine Discontinued 37.5 MG PO Daily June 11, 2021 12:00am January 17, 2024 5:18pm Payers Date Payer Category Payer Self-pay [id number] 1958 Medicare [id number] 1958 Self-pay [id number] 1945 [facility] [id number] 2.16.84 [id number] 1945 Unknown [id number] 2.16.84 [id number] 1945 Unknown [id number] 2.16.84 [id number] 1945 Unknown [id number] 2.16.84 [id number] 1945 Unknown [id number] 2.16.84 [id number] 1945 Unknown [id number] 2.16.84 [id number] 1945 Unknown [id number] 2.16.84 [id number] 1945 Unknown [id number] 2.16.84 [id number] 1945 Unknown [id number] 2.16.84 [id number] Unknown Unknown [id number] 2.16.8 [id number] Plan of Treatment Date Care Activity Detail Author Start: 02-15-2024 Patient referral [facility] Work Phone: Comprehensive metabo lic 2000 panel - Serum or Plasma [facility] Microalbumin [Mass/v olume] in Urine [facility] Patient referral [facility] Work Phone: [facility] Problems Active Problems Problem Classification Problem Date Documented Date Episodic/Chronic Acute and unspecified renal failure (1 source) Acute kidney failure, unspecified Episodic Anxiety disorders (3 sources) Anxiety; 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: [Anxiety disorder, unspecified] 01-30-2024 Chronic Cancer of breast (2 sources) History of malignant neoplasm of breast; 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: [Personal history of malignant neoplasm of breast] Onset: 3 07-27-2022 Episodic Cardiac dysrhythmias (20 sources) Atrial fibrillation; 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: [Paroxysmal atrial fibrillation] Onset: 3 07-27-2022 Chronic Chronic kidney disease (14 sources) Chronic kidney disease stage 3; 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: [...] Coronary arteriosclerosis; 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: [Atherosclerotic heart disease of [place] coronary artery without angina pectoris] Onset: 3 01-17-2024 Chronic Coronary atherosclerosis and other heart disease (1 source) Coronary angioplasty status; 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: [CORONARY ANGIOPLASTY STATUS] Onset: 3 Episodic Diabetes mellitus with complications (20 sources) Disorder of kidney due to diabetes mellitus; 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: [Type 2 diabetes mellitus with diabetic chronic kidney disease] Onset: 3 07-27-2022 Chronic Diabetes mellitus without complication (7 sources) Diabetes mellitus; 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: [Type 2 diabetes mellitus without complications] Onset: 2 07-27-2022 Chronic Diabetes mellitus without complication (3 sources) Hyperglycemia; 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: [Hyperglycemia, unspecified] 06-12-2021 Episodic Disorders of lipid metabolism (3 sources) Hypercholesterolemia; 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: [Hyperlipidemia] Onset: 3 07-27-2022 Chronic Diverticulosis and diverticulitis (20 sources) Diverticulitis; 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: [Diverticulitis of intestine, part unspecified, without perforation or abscess without bleeding] Chronic Esophageal disorders (20 sources) Gastroesophageal reflux disease; 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: [Gastroesophageal reflux disease without esophagitis] Onset: 3 07-27-2022 Chronic Essential hypertension (12 sources) Hypertensive disorder; 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: [Essential (primary) hypertension] Onset: 2 07-27-2022 Chronic Fluid and electrolyte disorders (4 sources) Dehydration; 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: [Hypokalemia] Onset: 3 Episodic Genitourinary symptoms and ill-defined conditions (18 sources) Genuine stress incontinence; 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: [Stress incontinence (female) (male)] Chronic Hypertension with complications and secondary hypertension (20 sources) Chronic kidney disease due to hypertension; 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: [Hypertensive chronic kidney disease with stage 1 through stage 4 chronic kidney disease, or unspecified chronic kidney disease] Onset: 3 Chronic Immunizations and screening for infectious disease (6 sources) Immunization due; 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: [Encounter for immunization] 01-18-2024 Episodic Inflammation; infection of eye (except that caused by tuberculosis or sexually transmitteddisease) (3 sources) External hordeolum; 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: [Hordeolum externum unspecified eye, unspecified eyelid] 01-18-2024 Episodic Intestinal infection (3 sources) Enterocolitis due to Clostridium difficile, not specified as recurrent Episodic Malaise and fatigue (1 source) Weakness Episodic Menopausal disorders (1 source) Hormone replacement therapy; 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: [HORMONE REPLACEMENT THERAPY] Onset: 3 Episodic Mood disorders (1 source) Depressive disorder 07-27-2022 Chronic Mycoses (5 sources) Candidiasis of skin and nail; 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: [...] sources) Long-term current use of insulin; 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: [FDC (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 insulin] 01-17-2024 Episodic Other aftercare (1 source) Other correction (current) drug therapy; 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: [OTH FDC CURRENT DRUG THERAPY] Onset: 3 Episodic Other aftercare (1 source) 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; 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: [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] Onset: 3 Episodic Other [...] renal origin] 01-17-2024 Chronic Other diseases of kidney and ureters (1 source) Secondary hyperparathyroidism of renal origin; 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: [Secondary hyperparathyroidism (of renal origin)] 03-25-2024 Chronic Other diseases of veins and lymphatics (3 sources) Lymphedema; 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: [Lymphedema, not elsewhere classified] 01-17-2024 Chronic Other eye disorders (3 sources) Chalazion; 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: [Chalazion right eye, unspecified eyelid] 01-18-2024 Episodic Other eye disorders (3 sources) Chalazion right eye, unspecified eyelid; 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: [...] Onset: 3 Episodic Other lower respiratory disease (3 sources) Dyspnea; 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: [Dyspnea, unspecified] 06-12-2021 Episodic [...] Chronic Other nutritional; endocrine; and metabolic disorders (3 sources) Intolerance to lactose; 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: [Lactose intolerance, [...] UTERUS] Onset: 3 Episodic Residual codes; unclassified (19 sources) Memory impairment; 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: [Other amnesia] 01-17-2024 Episodic Residual codes; unclassified (1 source) Other amnesia Episodic Retinal detachments; defects; vascular occlusion; and retinopathy (4 sources) Unspecified macular degeneration; 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: [Degenerative disorder [...] Spondylosis; intervertebral disc disorders; other back problems (4 sources) Chronic low back pain; 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: [Post-surgery back pain] 07-27-2022 Episodic Syncope (3 sources) Near syncope; 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: [Syncope and collapse] 06-19-2021 Episodic Thyroid disorders (5 sources) Hypothyroidism; 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: [Hypothyroidism, unspecified] 07-27-2022 Chronic Unclassified (1 source) CONTACT W/AND (SUSP) EXPOS COVID-19; 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: [CONTACT W/AND (SUSP) EXPOS COVID-19] Onset: 3 Unclassified (1 source) Low back pain, unspecified; 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: [Low back pain, unspecified] Onset: 4 Past or Other Problems Problem Classification Problem Date Documented Da te Episodic/Chronic Other aftercare (4 sources) FDC (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 insulin; 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: [FDC CURRENT USE OF INSULIN] Onset: 3 Episodic [...] edema; 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: [GENERALIZED EDEMA] Onset: 2 Episodic Procedures Date Procedure Procedure Detail Performing Clinician Start: 03-13-2024 MR lumbar spine wo con MD Shantel Steven Work Phone: Start: 03-13-2024 MRI of cervical spine without contrast MD Shantel Steven Work Phone: Start: 03-13-2024 XR pre/post mri xray MD Shantel Steven Work Phone: Start: 03-12-2019 Colonoscopy Bin SORENSON Start: 11-12-1992 Bilateral mastectomy Bin SORENSON Cardiac catheterization [place] ael NILL Cholecystectomy Bin NILL Colonoscopy Bin NILL Decompression laminectomy Lenore magallon NILL Esophagogastroduodenoscopy Vandana ichmonse NILL Excision of iliac lymph nodes Bin NILL Facetectomy of vertebra [place] ael NILL Foraminotomy Bin NILL History of operative procedure on shoulder Bin NILL History of sigmoid colectomy Bin NILL Total abdominal hyst erectomy with bilateral salpingo-oophorectomy Bin NILL Results Test Name Value Interpretation Reference Range Facility Basophils Auto (Bld) [#/Vol] on 03-28-2024 Basophils (Bld) [#/Vol] 0.1 10 3/uL 0.0-0.1 [facility] Basophils/100 WBC Auto (Bld) on 03-28-2024 Basophils/100 WBC (Bld) 0.9 % 0.2-2.0 [facility] Eosinophils/100 WBC Auto (Bl d)on 03-28-2024 Eosinophils/100 WBC (Bld) 1.7 % 0.9-7.0 [facility] Erythrocyte distribution wid th Auto (RBC) [Ratio]on 03-28-2024 Erythrocyte distribution width (RBC) [Ratio] 14.2 % 11.0-15.0 [facility] Hematocrit Auto (Bld) [Volum e fraction]on 03-28-2024 Hematocrit (Bld) [Volume fraction] 40.0 % 36.0-48.0 [facility] Hemoglobin [Mass/volume] in Bloodon 03-28-2024 Hemoglobin (Bld) [Mass/Vol] 12.6 g/dL 12.0-16.0 [facility] Laboratory - Hematology and Cell countson 03-28-2024 Immature granulocytes/100 WBC (Bld) 0.4 % 0.0-0.5 [facility] Leukocytes [#/volume] correc gali for nucleated erythrocytes in Blood by Automated counon 03-28-2024 WBC corrected for nucl RBC Auto (Bld) [#/Vol] 8.4 10 3/uL 4.0-11.0 [facility] Lymphocytes Auto (Bld) [#/Vo l]on 03-28-2024 Lymphocytes (Bld) [#/Vol] 1.8 10 3/uL 1.2-3.8 [facility] Lymphocytes/100 WBC Auto (Bl d)on 03-28-2024 Lymphocytes/100 WBC (Bld) 21.4 % 20.5-60.0 [facility] MCH Auto (RBC) [Entitic mass ]on 03-28-2024 MCH (RBC) [Entitic mass] 29.0 pg 26.7-34.0 [facility] MCHC Auto (RBC) [Mass/Vol]on 03-28-2024 MCHC (RBC) [Mass/Vol] 31.5 g/dL 29.9-35.2 [facility] MCV Auto (RBC) [Entitic vol] on 03-28-2024 MCV (RBC) [Entitic vol] 92.0 fL 81.0-99.0 [facility] Monocytes Auto (Bld) [#/Vol] on 03-28-2024 Monocytes (Bld) [#/Vol] 0.8 10 3/uL 0.3-0.8 [facility] Monocytes/100 WBC Auto (Bld) on 03-28-2024 Monocytes/100 WBC (Bld) 9.7 % 1.7-12.0 [facility] Neutrophils Auto (Bld) [#/Vo l]on 03-28-2024 Neutrophils (Bld) [#/Vol] 5.6 10 3/uL 1.4-6.5 [facility] Neutrophils/100 WBC Auto (Bl d)on 03-28-2024 Neutrophils/100 WBC (Bld) 65.9 % 43.0-75.0 [facility] No Panel Informationon 03-28 Eosinophils # (Auto) 0.1 10 3/uL 0.0-0.7 [facility] Immature Granulocyte # (Auto) 0.03 10 3/uL 0.00-0.03 [facility] Platelet mean volume Auto (B ld) [Entitic vol]on 03-28-2024 Platelet mean volume (Bld) [Entitic vol] 10.5 fL 9.5-13.5 [facility] Platelets Auto (Bld) [#/Vol] on 03-28-2024 Platelets (Bld) [#/Vol] 197 10 3/uL 150-450 [facility] RBC Auto (Bld) [#/Vol]on RBC (Bld) [#/Vol] 4.35 10 6/uL 4.20-5.40 [facility] Basophils Auto (Bld) [#/Vol] on 03-27-2024 Basophils (Bld) [#/Vol] 0.1 10 3/uL 0.0-0.1 [facility] Basophils/100 WBC Auto (Bld) on 03-27-2024 Basophils/100 WBC (Bld) 0.8 % 0.2-2.0 [facility] Eosinophils/100 WBC Auto (Bl d)on 03-27-2024 Eosinophils/100 WBC (Bld) 1.1 % 0.9-7.0 [facility] Erythrocyte distribution wid th Auto (RBC) [Ratio]on 03-27-2024 Erythrocyte distribution width (RBC) [Ratio] 14.2 % 11.0-15.0 [facility] Glucose mean value [Mass/vol ume] in Blood Estimated from glycated hemoglobinon 03-27-2024 Average glucose Estimated from glycated hemoglobin (Bld) [Mass/Vol] 275 mg/dL [facility] Hematocrit Auto (Bld) [Volum e fraction]on 03-27-2024 Hematocrit (Bld) [Volume fraction] 37.4 % 36.0-48.0 [facility] Hemoglobin [Mass/volume] in Bloodon 03-27-2024 Hemoglobin (Bld) [Mass/Vol] 12.1 g/dL 12.0-16.0 [facility] Laboratory - Hematology and Cell countson 03-27-2024 HbA1c (Bld) [Mass fraction] 11.2 % 4.5-6.2 [facility] Comment on above: ADA RECOMMENDED LIMI T 4.0 - 6.0ADA THERAPEUTIC TARGET < 7.0ACTION SUGGESTED> 7.0 Immature granulocytes/100 WBC (Bld) 0.3 % 0.0-0.5 [facility] Leukocytes [#/volume] correc gali for nucleated erythrocytes in Blood by Automated counon 03-27-2024 WBC corrected for nucl RBC Auto (Bld) [#/Vol] 9.7 10 3/uL 4.0-11.0 [facility] Lymphocytes Auto (Bld) [#/Vo l]on 03-27-2024 Lymphocytes (Bld) [#/Vol] 1.3 10 3/uL 1.2-3.8 [facility] Lymphocytes/100 WBC Auto (Bl d)on 03-27-2024 Lymphocytes/100 WBC (Bld) 13.3 % 20.5-60.0 [facility] MCH Auto (RBC) [Entitic mass ]on 03-27-2024 MCH (RBC) [Entitic mass] 29.2 pg 26.7-34.0 [facility] MCHC Auto (RBC) [Mass/Vol]on 03-27-2024 MCHC (RBC) [Mass/Vol] 32.4 g/dL 29.9-35.2 [facility] MCV Auto (RBC) [Entitic vol] on 03-27-2024 MCV (RBC) [Entitic vol] 90.3 fL 81.0-99.0 [facility] Monocytes Auto (Bld) [#/Vol] on 03-27-2024 Monocytes (Bld) [#/Vol] 0.8 10 3/uL 0.3-0.8 [facility] Monocytes/100 WBC Auto (Bld) on 03-27-2024 Monocytes/100 WBC (Bld) 8.4 % 1.7-12.0 [facility] Neutrophils Auto (Bld) [#/Vo l]on 03-27-2024 Neutrophils (Bld) [#/Vol] 7.4 10 3/uL 1.4-6.5 [facility] Neutrophils/100 WBC Auto (Bl d)on 03-27-2024 Neutrophils/100 WBC (Bld) 76.1 % 43.0-75.0 [facility] No Panel Informationon 03-27 Eosinophils # (Auto) 0.1 10 3/uL 0.0-0.7 [facility] Immature Granulocyte # (Auto) 0.03 10 3/uL 0.00-0.03 [facility] Platelet mean volume Auto (B ld) [Entitic vol]on 03-27-2024 Platelet mean volume (Bld) [Entitic vol] 10.6 fL 9.5-13.5 [facility] Platelets Auto (Bld) [#/Vol] on 03-27-2024 Platelets (Bld) [#/Vol] 204 10 3/uL 150-450 [facility] RBC Auto (Bld) [#/Vol]on RBC (Bld) [#/Vol] 4.14 10 6/uL 4.20-5.40 [facility] Basophils Auto (Bld) [#/Vol] on 03-26-2024 Basophils (Bld) [#/Vol] 0.1 10 3/uL 0.0-0.1 [facility] Basophils/100 WBC Auto (Bld) on 03-26-2024 Basophils/100 WBC (Bld) 0.8 % 0.2-2.0 [facility] Eosinophils/100 WBC Auto (Bl d)on 03-26-2024 Eosinophils/100 WBC (Bld) 1.2 % 0.9-7.0 [facility] Erythrocyte distribution wid th Auto (RBC) [Ratio]on 03-26-2024 Erythrocyte distribution width (RBC) [Ratio] 14.5 % 11.0-15.0 [facility] Estimated glomerular filtrat ion rate (GFR) non- Americanon 03-26-2024 GFR/1.73 sq M.predicted among non-blacks MDRD (S/P/Bld) [Vol rate/Area] 46 mL/min/{1.73_m2} >=60 [facility] Glucose mean value [Mass/vol ume] in Blood Estimated from glycated hemoglobinon 03-26-2024 Average glucose Estimated from glycated hemoglobin (Bld) [Mass/Vol] 275 mg/dL [facility] Hematocrit Auto (Bld) [Volum e fraction]on 03-26-2024 Hematocrit (Bld) [Volume fraction] 40.1 % 36.0-48.0 [facility] Hemoglobin [Mass/volume] in Bloodon 03-26-2024 Hemoglobin (Bld) [Mass/Vol] 12.7 g/dL 12.0-16.0 [facility] Laboratory - Chemistry and C hemistry - challengeon 03-26-2024 Calcium [Mass/Vol] 9.1 mg/dL 8.5-10.1 [facility] Chloride [Moles/Vol] 102 mmol/L 98-107 [facility] CO2 [Moles/Vol] 28.5 mmol/L 21.0-32.0 [facility] Creatinine [Mass/Vol] 1.14 mg/dL 0.55-1.02 [facility] Free T4 [Mass/Vol] 1.29 ng/dL 0.76-1.46 [facility] GFR/1.73 sq M.predicted MDRD (S/P/Bld) [Vol rate/Area] 56 mL/min/{1.73_m2} >=60 [facility] Glucose [Mass/Vol] 246 mg/dL 74-106 [facility] Natriuretic peptide B (Bld) [Mass/Vol] 2890.0 pg/mL <=1800.0 [facility] Comment on above: RESULTS CALLED TO YOEL TAI RN @BY Alla Kunz 0556 Potassium [Moles/Vol] 4.3 mmol/L 3.5-5.1 [facility] Sodium [Moles/Vol] 136 mmol/L 136-145 [facility] TSH Qn 6.001 m[IU]/L 0.358-3.740 [facility] Urea nitrogen [Mass/Vol] 35.0 mg/dL 7.0-18.0 [facility] Urea nitrogen/Creatinine [Mass ratio] 30.7 mg/mg [facility] Laboratory - Hematology and Cell countson 03-26-2024 HbA1c (Bld) [Mass fraction] 11.2 % 4.5-6.2 [facility] Comment on above: ADA RECOMMENDED LIMI T 4.0 - 6.0ADA THERAPEUTIC TARGET < 7.0ACTION SUGGESTED> 7.0 Immature granulocytes/100 WBC (Bld) 0.2 % 0.0-0.5 [facility] Leukocytes [#/volume] correc gali for nucleated erythrocytes in Blood by Automated counon 03-26-2024 WBC corrected for nucl RBC Auto (Bld) [#/Vol] 8.3 10 3/uL 4.0-11.0 [facility] Lymphocytes Auto (Bld) [#/Vo l]on 03-26-2024 Lymphocytes (Bld) [#/Vol] 1.4 10 3/uL 1.2-3.8 [facility] Lymphocytes/100 WBC Auto (Bl d)on 03-26-2024 Lymphocytes/100 WBC (Bld) 16.5 % 20.5-60.0 [facility] MCH Auto (RBC) [Entitic mass ]on 03-26-2024 MCH (RBC) [Entitic mass] 29.1 pg 26.7-34.0 [facility] MCHC Auto (RBC) [Mass/Vol]on 03-26-2024 MCHC (RBC) [Mass/Vol] 31.7 g/dL 29.9-35.2 [facility] MCV Auto (RBC) [Entitic vol] on 03-26-2024 MCV (RBC) [Entitic vol] 92.0 fL 81.0-99.0 [facility] Monocytes Auto (Bld) [#/Vol] on 03-26-2024 Monocytes (Bld) [#/Vol] 0.7 10 3/uL 0.3-0.8 [facility] Monocytes/100 WBC Auto (Bld) on 03-26-2024 Monocytes/100 WBC (Bld) 7.9 % 1.7-12.0 [facility] Neutrophils Auto (Bld) [#/Vo l]on 03-26-2024 Neutrophils (Bld) [#/Vol] 6.1 10 3/uL 1.4-6.5 [facility] Neutrophils/100 WBC Auto (Bl d)on 03-26-2024 Neutrophils/100 WBC (Bld) 73.4 % 43.0-75.0 [facility] No Panel Informationon 03-26 Eosinophils # (Auto) 0.1 10 3/uL 0.0-0.7 [facility] Immature Granulocyte # (Auto) 0.02 10 3/uL 0.00-0.03 [facility] Troponin I High Sensitivity 12.4 pg/mL 4.0-51.3 [facility] Comment on above: CUT-OFF POINTS HAVE BEEN ESTABLISHED BASED ON THE FOURTHUNIVERSAL DEFINITION OF MYOCARDIAL INFARCTION. THE UPPERREFERENCE LIMIT (URL) OF TROPONIN, DEFINED THE 99THPERCENTILE OF cTnI DISTRIBUTION IN A REFERENCE POPULATION,HAS BEEN CONFIRMED THE DECISION THRESHOLD FOR MIDIAGNOSIS.99TH PERCENTILE = 51.4 PG/MLNOTE: HIGH-SENSITIVITY TROPONIN ASSAY IS NOT INTENDED TO BEUSED IN ISOLATION BUT SHOULD BE INTERPRETED IN CONJUNCTIONWITH OTHER DIAGNOSTIC AND CLINICAL INFORMATION. Platelet mean volume Auto (B ld) [Entitic vol]on 03-26-2024 Platelet mean volume (Bld) [Entitic vol] 10.8 fL 9.5-13.5 [facility] Platelets Auto (Bld) [#/Vol] on 03-26-2024 Platelets (Bld) [#/Vol] 225 10 3/uL 150-450 [facility] RBC Auto (Bld) [#/Vol]on RBC (Bld) [#/Vol] 4.36 10 6/uL 4.20-5.40 [facility] Serum or plasma anion gap de terminationon 03-26-2024 Anion gap [Moles/Vol] 9.8 mmol/L [facility] MR cervical spine wo conon 0 03-13-2024 MR cervical spine wo con [facility] [place] [address] MRI Report Signed Patient: Joe Call MR#: [id number] 0 : 1945 Acct:[id number] Age/Sex: 78 / F ADM Date: 03/13/24 Loc: [facility] Room: Type: [facility] Attending Dr: Eloina Hussein MD Copies [...] Jarred Randolph M.D.03/13/2024 3:47 PM Dictation Location: [place] [address] Transcribed By: [facility] 03/13/24 1547 Dictated By: Jarred Randolph DO 03/13/24 1542 Signed By: 03/13/24 1547 Normal [facility] XR pre/post mri xrayon 03-13 XR pre/post mri xray [facility] [place] [place] [address] MRI Report Signed Patient: Joe Call MR#: [id number] 0 : 1945 Acct:[id number] Age/Sex: 78 / F ADM Date: 03/13/24 Loc: [facility] Room: Type: [facility] Attending Dr: Eloina Hussein MD Copies to: Eloina Mullins MD Ordering Provider: Eloina Mullins MD Date of Service: 03/13/24 MR/MR lumbar spine wo con: M54.50 ([id number]) XR/XR pre/post mri xray: M54.50 MRI Lumbar [...] Jarred Randolph M.D.03/13/2024 3:58 PM Dictation Location: [place] [address] Transcribed By: [facility] 03/13/24 6466 Dictated By: Jarred Randolph DO 03/13/24 1551 Signed By: 03/13/24 1558 [facility] Office Visiton 03-07-2024 Follow-up visit [id number] Joe Call 1945 Provider Department Center 03/07/2024 RICA DEAN Family History Problem Relation Age of Onset Coronary artery disease Other Diabetes Other Polycystic kidney disease Other Family Status - Relation Status Age at Other Level of Service:32513 [place] OFFICE/OUTPATIENT ESTABLISHED MOD MDM 30 MIN Reason for Visit and Comments: Follow-up [332415] - 6 month [facility] Office Visiton 08-17-2023 Follow-up visit [id number] Joe Call 1945 Provider Department Center 08/17/2023 [id number] GILLILAND Family History Problem Relation Age of Onset Coronary artery disease Other Diabetes Other Polycystic kidney disease Other Family Status - Relation Status Age at Other Level of Service:34528 [place] OFFICE/OUTPATIENT ESTABLISHED MOD MDM 30-39 MIN [facility] 36on 07-25-2023 36 Pt informed [facility] 36on 07-24-2023 37 She does not need to drink 4 bottle of water. She needs to maintain a 2 L fluid restriction. This includes all fluid not just water. In regards to sleep, I told her she would need to discuss that with her PCP. Thanks. [facility] Office Visiton 07-23-2023 Follow-up visit [id number] Joe Call 1945 Date Provider Department Center 07/23/2023 ENZO BROWNE Family History Problem Relation Age of Onset Coronary artery disease Other Diabetes Other Polycystic kidney disease Other Family Status - Relation Status Age at Other Level of Service:94564 [place] OFFICE/OUTPATIENT ESTABLISHED MOD MDM 30-39 MIN [facility] Office Visiton 04-25-2023 Follow-up visit [id number] Joe Call 1945 Date Provider Department Center 04/25/2023 RICA DEAN Family History Problem Relation Age of Onset Coronary artery disease Other Diabetes Other Polycystic kidney disease Other Family Status - Relation Status Age at Other Level of Service:76562 [place] OFFICE/OUTPATIENT ESTABLISHED MOD MDM 30-39 MIN Reason for Visit and Comments: Atrial Fibrillation [80] Congestive Heart Failure [127] Hypertension [041314] Normal [facility] GI PANEL (PCR)on 03-06-2023 Adenovirus F 40/41 Not detected Normal NOT DETECTED [facility] Comment on above: Performed By: #### P OCGLUC #### [facility] [address] [place] [address] Dr. Kasia Nath Astrovirus Not detected Normal NOT DETECTED [facility] Comment on above: Performed By: #### P OCGLUC #### [facility] [address] [place] [address] Dr. Kasia Nath C. Diff toxin A/B Detected Critically abnormal NOT DETECTED [facility] Comment on above: Performed By: #### P OCGLUC #### [facility] [address] [place] [address] Dr. Kasia Nath Campylobacter Detected Critically abnormal NOT DETECTED [facility] Comment on above: Performed By: #### P OCGLUC #### [facility] [address] [place] [address] Dr. Kasia Nath Cryptosporidium Not detected Normal NOT DETECTED [facility] Comment on above: Performed By: #### P OCGLUC #### [facility] [address] [place] [address] Dr. Kasia Nath Cyclos. Cayetanensis Not detected Normal NOT DETECTED [facility] Comment on above: Performed By: #### P OCGLUC #### [facility] [address] [place] [address] Dr. Kasia Nath E. Coli O157 Not Applicable Normal Not Applicable [facility] Comment on above: Performed By: #### P OCGLUC #### [facility] [address] [place] [address] Dr. Kasia Nath E. histolytica Not detected Normal NOT DETECTED [facility] Comment on above: Performed By: #### P OCGLUC #### [facility] [address] [place] [address] Dr. Kasia Nath EAEC Not detected Normal NOT DETECTED [facility] Comment on above: Performed By: #### P OCGLUC #### [facility] [address] [place] [address] Dr. Kasia Nath EIEC Not detected Normal NOT DETECTED [facility] Comment on above: Performed By: #### P OCGLUC #### [facility] [address] [place] [address] Dr. Kasia Nath EPEC Not detected Normal NOT DETECTED [facility] Comment on above: Performed By: #### P OCGLUC #### [facility] [address] [place] [address] Dr. Kasia Nath ETEC Not detected Normal NOT DETECTED [facility] Comment on above: Performed By: #### P OCGLUC #### [facility] [address] [place] [address] Dr. Kasia Nath G. Lamblia Not detected Normal NOT DETECTED [facility] Comment on above: Performed By: #### P OCGLUC #### [facility] [address] [place] [address] Dr. Kasia KHAN CONTROLS PASSED Normal [facility] Comment on above: Performed By: #### P OCGLUC #### [facility] [address] [place] [address] Dr. Kasia [facility] HEADER GI PANEL BACTERIA Normal [facility] Comment on above: Performed By: #### P OCGLUC #### [facility] [address] [place] [address] Dr. Kasia GE ECOLI GI PANEL DIARRHEAGENIC E.COLI / SHIGELLA Normal [facility] Comment on above: Performed By: #### P OCGLUC #### [facility] [address] [place] [address] Dr. Kasia GE INFO SEE BELOW Normal [facility] Comment on above: Result Comment: EAEC - Enteroaggregative E. Coli EPEC- Enteropathogenic E. Coli ETEC- Enterotoxigenic E. Coli lt/st STEC- Shigella-like toxin-producing E. Coli stx1/stx2 EIEC- Shigella/Enteroinvasive E. Coli Performed By: #### P OCGLUC #### [facility] [address] [place] [address] [address] Kasia GE PARASITES GI PANEL PARASITES Normal [facility] Comment on above: Performed By: #### P OCGLUC #### [facility] [address] [place] [address] [address] Kasia GE VIRUS GI PANEL VIRUSES Normal [facility] Comment on above: Performed By: #### P OCGLUC #### [facility] [address] [place] [address] [address] Kasia Nath Norovirus GI/GII Not detected Normal NOT DETECTED [facility] Comment on above: Performed By: #### P OCGLUC #### [facility] [address] [place] [address] [address] Kasia Nath P. Shigelloides Not detected Normal NOT DETECTED [facility] Comment on above: Performed By: #### P OCGLUC #### [facility] [address] [place] [address] [address] Kasia Nath Rotavirus A Not detected Normal NOT DETECTED [facility] Comment on above: Performed By: #### P OCGLUC #### [facility] [address] [place] [address] [address] Kasia Nath Salmonella Not detected Normal NOT DETECTED [facility] Comment on above: Performed By: #### P OCGLUC #### [facility] [address] [place] [address] [address] Kasia Nath Sapovirus Not detected Normal NOT DETECTED [facility] Comment on above: Performed By: #### P OCGLUC #### [facility] [address] [place] [address] [address] Kasia Nath STEC Not detected Normal NOT DETECTED [facility] Comment on above: Performed By: #### P OCGLUC #### [facility] [address] [place] [address] [address] Kasia Nath Vibrio Not detected Normal NOT DETECTED [facility] Comment on above: Performed By: #### P OCGLUC #### [facility] [address] [place] [address] Dr. Kasia Nath Vibrio Cholera Not detected Normal NOT DETECTED [facility] Comment on above: Performed By: #### P OCGLUC #### [facility] [address] [place] [address] Dr. Kasia Nath Y. Enterocolitica Not detected Normal NOT DETECTED [facility] Comment on above: Performed By: #### P OCGLUC #### [facility] [address] [place] [address] Dr. Kasia Nath CBC AUTO DIFFon 02-14-2023 BASO # 0.0 103/ul Normal 0.0-0.1 [facility] Comment on above: Performed By: #### P OCGLUC #### [facility] [address] [place] [address] Dr. Kasia Nath Basophils/100 WBC (Bld) 0.5 % Normal 0.2-2.0 [facility] Comment on above: Performed By: #### P OCGLUC #### [facility] [address] [place] [address] Dr. Kasia Nath EO # 0.2 103/ul Normal 0.0-0.7 [facility] Comment on above: Performed By: #### P OCGLUC #### [facility] [address] [place] [address] Dr. Kasia Nath Eosinophils/100 WBC (Bld) 2.7 % Normal 0.9-7.0 [facility] Comment on above: Performed By: #### P OCGLUC #### [facility] [address] [place] [address] Dr. Kasia Nath Erythrocyte distribution width (RBC) [Ratio] 13.0 % Normal 11.0-15.0 [facility] Comment on above: Performed By: #### P OCGLUC #### [facility] [address] [place] [address] Dr. Kasia Nath Hematocrit (Bld) [Volume fraction] 35.9 % Critically low 36.0-48.0 [facility] Comment on above: Performed By: #### P OCGLUC #### [facility] [address] [place] [address] [address] Kasia Nath Hemoglobin (Bld) [Mass/Vol] 12.0 g/dL Normal 12.0-16.0 [facility] Comment on above: Performed By: #### P OCGLUC #### [facility] [address] [place] [address] Dr. Kasia Nath IG # 0.02 10e3/ul Normal 0.00-0.03 [facility] Comment on above: Performed By: #### P OCGLUC #### [facility] [address] [place] [address] Dr. Kasia Nath IG % 0.3 % Normal 0.0-0.5 [facility] Comment on above: Performed By: #### P OCGLUC #### [facility] [address] [place] [address] Dr. Kasia Nath LYMPH # 1.8 103/ul Normal 1.2-3.8 [facility] Comment on above: Performed By: #### P OCGLUC #### [facility] [address] [place] [address] Dr. Kasia Nath Lymphocytes/100 WBC (Bld) 22.8 % Normal 20.5-60.0 [facility] Comment on above: Performed By: #### P OCGLUC #### [facility] [address] [place] [address] Dr. Kasia Nath MANUAL DIFF REQ NO Normal [facility] Comment on above: Performed By: #### P OCGLUC #### [facility] [address] [place] [address] Dr. Kasia Nath MCH (RBC) [Entitic mass] 29.4 pg Normal 26.7-34.0 [facility] Comment on above: Performed By: #### P OCGLUC #### [facility] [address] [place] [address] Dr. Kasia Nath MCHC (RBC) [Mass/Vol] 33.4 g/dL Normal 29.9-35.2 [facility] Comment on above: Performed By: #### P OCGLUC #### [facility] [address] [place] [address] Dr. Kasia Nath MCV (RBC) [Entitic vol] 88.0 fL Normal 81.0-99.0 [facility] Comment on above: Performed By: #### P OCGLUC #### [facility] [address] [place] [address] Dr. Kasia Nath MONO # 0.7 103/ul Normal 0.3-0.8 [facility] Comment on above: Performed By: #### P OCGLUC #### [facility] [address] [place] [address] Dr. Kasia Nath Monocytes/100 WBC (Bld) 9.3 % Normal 1.7-12.0 [facility] Comment on above: Performed By: #### P OCGLUC #### [facility] [address] [place] [address] Dr. Kasia Nath NEUT # 5.1 103/ul Normal 1.4-6.5 [facility] Comment on above: Performed By: #### P OCGLUC #### [facility] [address] [place] [address] Dr. Kasia Nath Neutrophils/100 WBC (Bld) 64.4 % Normal 43.0-75.0 [facility] Comment on above: Performed By: #### P OCGLUC #### [facility] [address] [place] [address] Dr. Kasia Nath Platelet mean volume (Bld) [Entitic vol] 11.7 fL Normal 9.5-13.5 [facility] Comment on above: Performed By: #### P OCGLUC #### [facility] [address] [place] [address] Dr. Kasia Nath PLT 175 103/ul Normal 150-450 [facility] Comment on above: Performed By: #### P OCGLUC #### [facility] [address] [place] [address] Dr. Kasia Nath RBC 4.08 106/ul Critically low 4.20-5.40 [facility] Comment on above: Performed By: #### P OCGLUC #### [facility] [address] [place] [address] Dr. Kasia Nath WBC 7.9 103/ul Normal 4.0-11.0 [facility] Comment on above: Performed By: #### P OCGLUC #### [facility] [address] [place] [address] [address] Kasia Nath LIPASEon 02-14-2023 Lipase [Catalytic activity/Vol] 51.0 U/L Critically low 73.0-393.0 [facility] Comment on above: Performed By: #### L IPA, CMP ####[facility] [address] [place] [address]DrDoreen Nath PROF 14(COMP METB)on 023 Albumin [Mass/Vol] 2.8 g/dL Critically low 3.4-5.0 [facility] Comment on above: Performed By: #### L IPA, CMP ####[facility] [address] [place] [address]DrDoreen Nath Albumin/Globulin [Mass ratio] 0.7 {ratio} Normal [facility] Comment on above: Performed By: #### L IPA, CMP ####[facility] [address] [place] [address]Dr. Kasia Nath ALP [Catalytic activity/Vol] 90 U/L Normal 46-116 [facility] Comment on above: Performed By: #### L IPA, CMP ####[facility] [address] [place] [address]Dr. Kasia Nath ALT [Catalytic activity/Vol] 15 U/L Normal 14-59 [facility] Comment on above: Performed By: #### L IPA, CMP ####[facility] [address] [place] [address]Dr. Kasia Nath Anion gap [Moles/Vol] 15.6 mmol/L Normal [facility] Comment on above: Performed By: #### L IPA, CMP ####[facility] [address] [place] [address]Dr. Kasia Nath AST [Catalytic activity/Vol] 9 U/L Critically low 15-37 [facility] Comment on above: Performed By: #### L IPA, CMP ####[facility] [address] [place] [address]Dr. Kasia Nath Bilirubin [Mass/Vol] 0.4 mg/dL Normal 0.2-1.0 [facility] Comment on above: Performed By: #### L IPA, CMP ####[facility] [address] [place] [address]Dr. Kasia Nath Calcium [Mass/Vol] 9.1 mg/dL Normal 8.5-10.1 [facility] Comment on above: Performed By: #### L IPA, CMP ####[facility] [address] [place], [place] [address]Dr. Kasia Nath Chloride [Moles/Vol] 104 mmol/L Normal 98-107 [facility] Comment on above: Performed By: #### L IPA, CMP ####[facility] [address] [place], [place] [address]Dr. Kasia Nath CO2 [Moles/Vol] 17.0 mmol/L Critically low 21.0-32.0 [facility] Comment on above: Performed By: #### L IPA, CMP ####[facility] [address] [place], [place] [address]Dr. Kasia Nath Creatinine [Mass/Vol] 1.78 mg/dL Critically high 0.55-1.02 [facility] Comment on above: Performed By: #### L IPA, CMP ####[facility] [address] [place], [place] [address]Dr. Kasia Portillo EGFR-AF SRI LANKAN 34 mL/min/1.73m2 Critically low >=60 [facility] Comment on above: Performed By: #### L IPA, CMP ####[facility] [address] [place], [place] [address]Dr. Kasia Nath EGFR-NON AF SRI LANKAN 28 mL/min/1.73m2 Critically low >=60 [facility] Comment on above: Performed By: #### L IPA, CMP ####[facility] [address] [place], [place] [address]Dr. Kasia Portillo Globulin (S) [Mass/Vol] 4.3 g/dL Normal [facility] Comment on above: Performed By: #### L IPA, CMP ####[facility] [address] [place] [address]Dr. Kasia Nath Glucose [Mass/Vol] 248 mg/dL Critically high 74-106 [facility] Comment on above: Performed By: #### L IPA, CMP ####[facility] [address] [place], [place] [address]Dr. Kasia Nath Potassium [Moles/Vol] 4.6 mmol/L Normal 3.5-5.1 [facility] Comment on above: Performed By: #### L IPA, CMP ####[facility] [address] [place], [place] [address]Dr. Kasia Nath Protein [Mass/Vol] 7.1 g/dL Normal 6.4-8.2 [facility] Comment on above: Performed By: #### L IPA, CMP ####[facility] [address] [place], [place] [address]Dr. Kasia Nath Sodium [Moles/Vol] 132 mmol/L Critically low 136-145 [facility] Comment on above: Performed By: #### L IPA, CMP ####[facility] [address] [place], [place] [address]Dr. Kasia Nath Urea nitrogen [Mass/Vol] 78.0 mg/dL Critically high 7.0-18.0 [facility] Comment on above: Performed By: #### L IPA, CMP ####[facility] [address] [place], [place] [address]Dr. Kasia Nath Urea nitrogen/Creatinine [Mass ratio] 43.8 mg/mg Normal [facility] Comment on above: Performed By: #### L IPA, CMP ####[facility] [address] [place], [place] [address]Dr. Kasia Nath CBC AUTO DIFFon 02-13-2023 BASO # 0.0 103/ul Normal 0.0-0.1 [facility] Comment on above: Performed By: #### C BC ####[facility] [address] [place], [place] [address]Dr. Kasia Nath Basophils/100 WBC (Bld) 0.5 % Normal 0.2-2.0 [facility] Comment on above: Performed By: #### C BC ####[facility] [address] [place], [place] [address]Dr. Kasia Nath EO # 0.1 103/ul Normal 0.0-0.7 [facility] Comment on above: Performed By: #### C BC ####[facility] [address] [place], [place] [address]Dr. Kasia Nath Eosinophils/100 WBC (Bld) 1.0 % Normal 0.9-7.0 [facility] Comment on above: Performed By: #### C BC ####[facility] [address] [place], [place] [address]Dr. Kasia Nath Erythrocyte distribution width (RBC) [Ratio] 12.8 % Normal 11.0-15.0 [facility] Comment on above: Performed By: #### C BC ####[facility] [address] [place], [place] [address]Dr. Kasia Nath Hematocrit (Bld) [Volume fraction] 38.5 % Normal 36.0-48.0 [facility] Comment on above: Performed By: #### C BC ####[facility] [address] [place], [place] [address]Dr. Kasia Nath Hemoglobin (Bld) [Mass/Vol] 13.0 g/dL Normal 12.0-16.0 [facility] Comment on above: Performed By: #### C BC ####[facility] [address] [place], [place] [address]Dr. Kasia Nath IG # 0.02 10e3/ul Normal 0.00-0.03 [facility] Comment on above: Performed By: #### C BC ####[facility] [address] [place], [place] [address]Dr. Kasia Nath IG % 0.2 % Normal 0.0-0.5 [facility] Comment on above: Performed By: #### C BC ####[facility] [address] [place], [place] [address]Dr. Kasia Nath LYMPH # 0.9 103/ul Critically low 1.2-3.8 [facility] Comment on above: Performed By: #### C BC ####[facility] [address] [place] [address]Dr. Kasia Nath Lymphocytes/100 WBC (Bld) 10.0 % Critically low 20.5-60.0 [facility] Comment on above: Performed By: #### C BC ####[facility] [address] [place] [address]Dr. Kasia Nath MANUAL DIFF REQ NO Normal [facility] Comment on above: Performed By: #### C BC ####[facility] [address] [place] [address]Dr. Kasia Nath MCH (RBC) [Entitic mass] 29.5 pg Normal 26.7-34.0 [facility] Comment on above: Performed By: #### C BC ####[facility] [address] [place], [place] [address]Dr. Kasia Nath MCHC (RBC) [Mass/Vol] 33.8 g/dL Normal 29.9-35.2 [facility] Comment on above: Performed By: #### C BC ####[facility] [address] [place], [place] [address]Dr. Kasia Nath MCV (RBC) [Entitic vol] 87.5 fL Normal 81.0-99.0 [facility] Comment on above: Performed By: #### C BC ####[facility] [address] [place] [address]Dr. Kasia Nath MONO # 0.5 103/ul Normal 0.3-0.8 [facility] Comment on above: Performed By: #### C BC ####[facility] [address] [place] [address]Dr. Kasia Nath Monocytes/100 WBC (Bld) 5.7 % Normal 1.7-12.0 [facility] Comment on above: Performed By: #### C BC ####[facility] [address] [place], [place] [address]Dr. Kasia Nath NEUT # 7.2 103/ul Critically high 1.4-6.5 [facility] Comment on above: Performed By: #### C BC ####[facility] [address] [place] [id number]. Kasia Nath Neutrophils/100 WBC (Bld) 82.6 % Critically high 43.0-75.0 [facility] Comment on above: Performed By: #### C BC ####[facility] [address] [place] [id number]. Kasia Nath Platelet mean volume (Bld) [Entitic vol] 11.8 fL Normal 9.5-13.5 [facility] Comment on above: Performed By: #### C BC ####[facility] [address] [address]Dr. Kasia Nath PLT 187 103/ul Normal 150-450 [facility] Comment on above: Performed By: #### C BC ####[facility] [address] [id number]. Kasia Nath RBC 4.40 106/ul Normal 4.20-5.40 [facility] Comment on above: Performed By: #### C BC ####[facility] [address] [address]Dr. Kasia Nath WBC 8.8 103/ul Normal 4.0-11.0 [facility] Comment on above: Performed By: #### C BC ####[facility] [address] [address]. Kasia Nath CT ABD/PELVIS WO CONon 02-13 [...] Mild colonic diverticulosis. Electronically authenticated by: JACOB MCCURDY Date: 2023-02-13 14:40 Normal [facility] CULTURE URINEon 02-13-2023 CULTURE URINE Culture Observations : LIGHT GROWTH OF MIXED GENITAL VON. NO POTENTIAL PATHOGENS SEEN. Normal [facility] Comment on above: Performed By: #### U RCX ####[facility] [address] [address]DrDoreen Nath Covid-19 PCR ([facility])on SARS-CoV-2 (COVID-19) RNA FERN+probe Ql (Unsp spec) Not detected Normal NOT DETECTED [facility] Comment on above: Result Comment: When diagnostic [...] for this test is supported by the Junior Sales Assistant of Health and Human Service's declaration that [...] used). Performed By: #### P OCGLUC #### [facility] [address] [place] [address] Dr. Kasia Nath GI PANEL (PCR)on 02-13-2023 Adenovirus F 40/41 Not detected Normal NOT DETECTED [facility] Comment on above: Performed By: #### C BC #### [facility] [address] [place] [address] Dr. Kasia Nath Astrovirus Not detected Normal NOT DETECTED [facility] Comment on above: Performed By: #### C BC #### [facility] [address] [place] [address] Dr. Kasia Del Real. Diff toxin A/B Not detected Normal NOT DETECTED [facility] Comment on above: Performed By: #### C BC #### [facility] [address] [place] [address] Dr. Kasia Nath Campylobacter Not detected Normal NOT DETECTED [facility] Comment on above: Performed By: #### C BC #### [facility] [address] [place] [address] Dr. Kasia Nath Cryptosporidium Not detected Normal NOT DETECTED [facility] Comment on above: Performed By: #### C BC #### [facility] [address] [place] [address] Dr. Kasia Nath Cyclos. Cayetanensis Not detected Normal NOT DETECTED [facility] Comment on above: Performed By: #### C BC #### [facility] [address] [place] [address] Dr. Kasia Nath E. Coli O157 Not Applicable Normal Not Applicable [facility] Comment on above: Performed By: #### C BC #### [facility] [address] [place] [address] Dr. Kasia Nath E. histolytica Not detected Normal NOT DETECTED [facility] Comment on above: Performed By: #### C BC #### [facility] [address] [place] [address] Dr. Kasia Nath EAEC Not detected Normal NOT DETECTED [facility] Comment on above: Performed By: #### C BC #### [facility] [address] [place] [address] Dr. Kasia Nath EIEC Not detected Normal NOT DETECTED [facility] Comment on above: Performed By: #### C BC #### [facility] [address] [place] [address] Dr. Kasia Nath EPEC Not detected Normal NOT DETECTED [facility] Comment on above: Performed By: #### C BC #### [facility] [address] [place] [address] Dr. Kasia Nath ETEC Not detected Normal NOT DETECTED [facility] Comment on above: Performed By: #### C BC #### [facility] [address] [place] [address] Dr. Kasia Nath G. Lamblia Not detected Normal NOT DETECTED [facility] Comment on above: Performed By: #### C BC #### [facility] [address] [place] [address] Dr. Kasia KHAN CONTROLS PASSED Normal [facility] Comment on above: Performed By: #### C BC #### [facility] [address] [place] [address] Dr. Kasia [facility] HEADER GI PANEL BACTERIA Normal [facility] Comment on above: Performed By: #### C BC #### [facility] [address] [place] [address] Dr. Kasia GE ECOLI GI PANEL DIARRHEAGENIC E.COLI / SHIGELLA Normal [facility] Comment on above: Performed By: #### C BC #### [facility] [address] [place] [address] Dr. Kasia GE INFO SEE BELOW [facility] Comment on above: Result Comment: EAEC - Enteroaggregative E. Coli EPEC- Enteropathogenic E. Coli ETEC- Enterotoxigenic E. Coli lt/st STEC- Shigella-like toxin-producing E. Coli stx1/stx2 EIEC- Shigella/Enteroinvasive E. Coli Performed By: #### C BC #### [facility] [address] [place] [address] Dr. Kasia GE PARASITES GI PANEL PARASITES Normal [facility] Comment on above: Performed By: #### C BC #### [facility] [address] [address] [address] Kasia GE VIRUS GI PANEL VIRUSES Normal [facility] Comment on above: Performed By: #### C BC #### [facility] [address] [place] [address] Dr. Kasia Nath Norovirus GI/GII Not detected Normal NOT DETECTED [facility] Comment on above: Performed By: #### C BC #### [facility] [address] [place] [address] Dr. Kasia Nath P. Shigelloides Not detected Normal NOT DETECTED [facility] Comment on above: Performed By: #### C BC #### [facility] [address] [place] [address] Dr. Kasia Nath Rotavirus A Not detected Normal NOT DETECTED [facility] Comment on above: Performed By: #### C BC #### [facility] [address] [place] [address] Dr. Kasia Nath Salmonella Not detected Normal NOT DETECTED [facility] Comment on above: Performed By: #### C BC #### [facility] [address] [place] [address] Dr. Kasia Nath Sapovirus Not detected Normal NOT DETECTED [facility] Comment on above: Performed By: #### C BC #### [facility] [address] [place] [address] Dr. Kasia Nath STEC Not detected Normal NOT DETECTED [facility] Comment on above: Performed By: #### C BC #### [facility] [address] [place] [address] Dr. Kasia Nath Vibrio Not detected Normal NOT DETECTED [facility] Comment on above: Performed By: #### C BC #### [facility] [address] [place] [address] Dr. Kasia Nath Vibrio Cholera Not detected Normal NOT DETECTED [facility] Comment on above: Performed By: #### C BC #### [facility] [address] [place] [address] Dr. Kasia Nath Y. Enterocolitica Not detected Normal NOT DETECTED [facility] Comment on above: Performed By: #### C BC #### [facility] [address] [address] [address] Kasia Nath LACTATE/LACTIC ACIDon 2022 Lactate [Moles/Vol] 1.7 mmol/L Normal 0.4-2.0 [facility] Comment on above: Performed By: #### L ACT ####[facility] [address] [place], [place] [address]Dr. Kasia Nath LIPASEon 02-13-2023 Lipase [Catalytic activity/Vol] 82.0 U/L Normal 73.0-393.0 [facility] Comment on above: Performed By: #### L IPA, CMP #### [facility] [address] [place] [address] Dr. Kasia Nath POINT OF CARE GLUCOSEon Glucose [Mass/Vol] 474 mg/dL Critically high -106 [facility] Comment on above: Performed By: #### P OCGLUC #### [facility] [address] [place] [address] Dr. Kasia Nath Glucose [Mass/Vol] 229 mg/dL Critically high -106 [facility] Comment on above: Performed By: #### P OCGLUC #### [facility] [address] [place] [address] Dr. Kasia Nath PROF 14(COMP METB)on 023 Albumin [Mass/Vol] 3.4 g/dL Normal 3.4-5.0 [facility] Comment on above: Performed By: #### L IPA, CMP #### [facility] [address] [place] [address] Dr. Kasia Nath Albumin/Globulin [Mass ratio] 0.7 {ratio} Normal [facility] Comment on above: Performed By: #### L IPA, CMP #### [facility] [address] [address] [address] Kasia Nath ALP [Catalytic activity/Vol] 106 U/L Normal 46-116 [facility] Comment on above: Performed By: #### L IPA, CMP #### [facility] [address] [address] [address] Kasia Nath ALT [Catalytic activity/Vol] 21 U/L Normal 14-59 [facility] Comment on above: Performed By: #### L IPA, CMP #### [facility] [address] [address] [address] Kasia Nath Anion gap [Moles/Vol] 17.7 mmol/L Normal [facility] Comment on above: Performed By: #### L IPA, CMP #### [facility] [address] [address] [address] Kasia Nath AST [Catalytic activity/Vol] 11 U/L Critically low 15-37 [facility] Comment on above: Performed By: #### L IPA, CMP #### [facility] [address] [address] [address] Kasia Nath Bilirubin [Mass/Vol] 0.5 mg/dL Normal 0.2-1.0 [facility] Comment on above: Performed By: #### L IPA, CMP #### [facility] [address] [address] [address] Kasia Nath Calcium [Mass/Vol] 9.6 mg/dL Normal 8.5-10.1 [facility] Comment on above: Performed By: #### L IPA, CMP #### [facility] [address] [address] [address] Kasia Nath Chloride [Moles/Vol] 99 mmol/L Normal 98-107 [facility] Comment on above: Performed By: #### L IPA, CMP #### [facility] [address] [address] [address] Kasia Nath CO2 [Moles/Vol] 20.6 mmol/L Critically low 21.0-32.0 [facility] Comment on above: Performed By: #### L IPA, CMP #### [facility] [address] [address] [address] Kasia Nath Creatinine [Mass/Vol] 2.14 mg/dL Critically high 0.55-1.02 [facility] Comment on above: Performed By: #### L IPA, CMP #### [facility] [address] [address] [address] Kasia Nath EGFR-AF SRI LANKAN 27 mL/min/1.73m2 Critically low >=60 [facility] Comment on above: Performed By: #### L IPA, CMP #### [facility] [address] [address] [address] Kasia Nath EGFR-NON AF SRI LANKAN 22 mL/min/1.73m2 Critically low >=60 [facility] Comment on above: Performed By: #### L IPA, CMP #### [facility] [address] [address] [address] Kasia Nath Globulin (S) [Mass/Vol] 4.8 g/dL Normal [facility] Comment on above: Performed By: #### L IPA, CMP #### [facility] [address] [address] [address] Kasia Nath Glucose [Mass/Vol] 498 mg/dL Critically high 74-106 [facility] Comment on above: Performed By: #### L IPA, CMP #### [facility] [address] [address] [address] Kasia Nath Potassium [Moles/Vol] 5.3 mmol/L Critically high 3.5-5.1 [facility] Comment on above: Performed By: #### L IPA, CMP #### [facility] [address] [address] [address] Kasia Nath Protein [Mass/Vol] 8.2 g/dL Normal 6.4-8.2 [facility] Comment on above: Performed By: #### L IPA, CMP #### [facility] [address] [address] [address] Kasia Nath Sodium [Moles/Vol] 132 mmol/L Critically low 136-145 [facility] Comment on above: Performed By: #### L IPA, CMP #### [facility] [address] [address] [address] Kasia Nath Urea nitrogen [Mass/Vol] 86.0 mg/dL Critically high 7.0-18.0 [facility] Comment on above: Performed By: #### L IPA, CMP #### [facility] [address] [address] [address] Kasia Nath Urea nitrogen/Creatinine [Mass ratio] 40.2 mg/mg Normal [facility] Comment on above: Performed By: #### L IPA, CMP #### [facility] [address] [address] [address] Kasia Nath UA RANDOM W/MICROSCOPICon BACTERIA TRACE Abnormal NONE SEEN [facility] Comment on above: Performed By: #### U AMIC ####[facility] [address] [address]Dr. Kasia Nath Bilirubin Ql (U) Negative Normal NEGATIVE [facility] Comment on above: Performed By: #### U AMIC ####[facility] [address] [address]Dr. Kasia Nath CAST SEEN Abnormal NONE SEEN [facility] Comment on above: Performed By: #### U AMIC ####[facility] [address] [address]Dr. Kasia Nath Clarity (U) CLEAR Normal CLEAR [facility] Comment on above: Performed By: #### U AMIC ####[facility] [address] [address]Dr. Kasia Nath Color (U) LT. YELLOW Normal YELLOW [facility] Comment on above: Performed By: #### U AMIC ####[facility] [address] [address]Dr. Kasia Nath Crystals LM Nom (Urine sed) NONE SEEN Normal NONE SEEN [facility] Comment on above: Performed By: #### U AMIC ####[facility] [address] [place], [place] [address]DrDoreen Nath Epithelial cells LM Ql (Urine sed) FEW Abnormal NONE SEEN /RARE [facility] Comment on above: Performed By: #### U AMIC ####[facility] [address] [address]Dr. Kasia Nath Glucose Ql (U) >1000 Abnormal NEGATIVE [facility] Comment on above: Performed By: #### U AMIC ####[facility] [address] [address]Dr. Kasia Nath Hemoglobin Ql (U) Negative Normal NEGATIVE [facility] Comment on above: Performed By: #### U AMIC ####[facility] [address] [address]Dr. Kasia Nath HYALINE CAST RARE Normal [facility] Comment on above: Performed By: #### U AMIC ####[facility] [address] [place], [place] [address]Dr. Kasia Nath Ketones Ql (U) Negative Normal NEGATIVE [facility] Comment on above: Performed By: #### U AMIC ####[facility] [address] [place], [place] [address]Dr. Kasia Nath LEUKOCYTES Negative Normal NEGATIVE [facility] Comment on above: Performed By: #### U AMIC ####[facility] [address] [place], [place] [address]Dr. Fartuncristy Nath MUCOUS NONE SEEN Normal NONE SEEN [facility] Comment on above: Performed By: #### U AMIC ####[facility] [address] [address]Dr. Kasia Nath Nitrite Ql (U) Negative Normal NEGATIVE [facility] Comment on above: Performed By: #### U AMIC ####[facility] [address] [address]Dr. Kasia Nath pH (U) 5.5 [pH] Normal 5-9 [facility] Comment on above: Performed By: #### U AMIC ####[facility] [address] [address]Dr. Kasia Nath RBC 0-2 Normal 0-2 [facility] Comment on above: Performed By: #### U AMIC ####[facility] [address] [address]Dr. Kasia Nath SPEC GRAVITY 1.015 Normal 1.005-<=1.025 [facility] Comment on above: Performed By: #### U AMIC ####[facility] [address] [address]Dr. Kasia Nath UA PROTEIN TRACE Normal NEGATIVE/ TRACE [facility] Comment on above: Performed By: #### U AMIC ####[facility] [address] [address]Dr. Kasia Nath Urobilinogen Qn (U) 0.2 {Meka'U}/dL Normal 0.2 - 1. 0 [facility] Comment on above: Performed By: #### U AMIC ####[facility] [address] [address]Dr. Kasia Nath WBC 0-2 Abnormal NONE SEEN [facility] Comment on above: Performed By: #### U AMIC ####[facility] [address] [place], [place] [address]Dr. Kasia Nath BNPon 01-16-2023 Natriuretic peptide B (Bld) [Mass/Vol] 1675.0 pg/mL Normal <=1,800.0 [facility] Comment on above: Performed By: #### B COMMISSIONED SECURITY OFFICER, CMP ####[facility] [address] [place], [place] [address]Dr. Kasia Nath PROF 14(COMP METB)on 023 Albumin [Mass/Vol] 3.4 g/dL Normal 3.4-5.0 [facility] Comment on above: Performed By: #### B COMMISSIONED SECURITY OFFICER, CMP ####[facility] [address] [place], [place] [address]Dr. Kasia Nath Albumin/Globulin [Mass ratio] 0.8 {ratio} Normal [facility] Comment on above: Performed By: #### B COMMISSIONED SECURITY OFFICER, CMP ####[facility] [address] [place], [place] [address]Dr. Kasia Nath ALP [Catalytic activity/Vol] 99 U/L Normal 46-116 [facility] Comment on above: Performed By: #### B COMMISSIONED SECURITY OFFICER, CMP ####[facility] [address] [address]Dr. Kasia Nath ALT [Catalytic activity/Vol] 18 U/L Normal 14-59 [facility] Comment on above: Performed By: #### B COMMISSIONED SECURITY OFFICER, CMP ####[facility] [address] [address]Dr. Kasia Nath Anion gap [Moles/Vol] 10.6 mmol/L Normal [facility] Comment on above: Performed By: #### B COMMISSIONED SECURITY OFFICER, CMP ####[facility] [address] [place], [place] [address]Dr. Kasia Nath AST [Catalytic activity/Vol] 15 U/L Normal 15-37 [facility] Comment on above: Performed By: #### B COMMISSIONED SECURITY OFFICER, CMP ####[facility] [address] [place], [place] [address]Dr. Kasia Nath Bilirubin [Mass/Vol] 0.5 mg/dL Normal 0.2-1.0 [facility] Comment on above: Performed By: #### B COMMISSIONED SECURITY OFFICER, CMP ####[facility] Umws[address]en[address] [place], [place] [address]Dr. Kasia Nath Calcium [Mass/Vol] 9.1 mg/dL Normal 8.5-10.1 [facility] Comment on above: Performed By: #### B COMMISSIONED SECURITY OFFICER, CMP ####[facility] [address] [place], [place] [address]Dr. Kasia Nath Chloride [Moles/Vol] 98 mmol/L Normal 98-107 [facility] Comment on above: Performed By: #### B COMMISSIONED SECURITY OFFICER, CMP ####[facility] [address] [place], [place] [address]Dr. Kasia Nath CO2 [Moles/Vol] 30.4 mmol/L Normal 21.0-32.0 [facility] Comment on above: Performed By: #### B COMMISSIONED SECURITY OFFICER, CMP ####[facility] [address] [place], [place] [address]Dr. Kasia Nath Creatinine [Mass/Vol] 1.44 mg/dL Critically high 0.55-1.02 [facility] Comment on above: Performed By: #### B COMMISSIONED SECURITY OFFICER, CMP ####[facility] [address] [place], [place] [address]Dr. Kasia Nath EGFR-AF SRI LANKAN 43 mL/min/1.73m2 Critically low >=60 [facility] Comment on above: Performed By: #### B COMMISSIONED SECURITY OFFICER, CMP ####[facility] [address] [place], [place] [address]Dr. Kasia Portillo EGFR-NON AF SRI LANKAN 35 mL/min/1.73m2 Critically low >=60 [facility] Comment on above: Performed By: #### B COMMISSIONED SECURITY OFFICER, CMP ####[facility] [address] [place], [place] [address]Dr. Kasia Nath Globulin (S) [Mass/Vol] 4.4 g/dL Normal [facility] Comment on above: Performed By: #### B COMMISSIONED SECURITY OFFICER, CMP ####[facility] [address] [place], [place] [address]Dr. Kasia Nath Glucose [Mass/Vol] 401 mg/dL Critically high 74-106 [facility] Comment on above: Performed By: #### B COMMISSIONED SECURITY OFFICER, CMP ####[facility] [address] [place], [place] [address]Dr. Kasia Nath Potassium [Moles/Vol] 5.0 mmol/L Normal 3.5-5.1 [facility] Comment on above: Performed By: #### B COMMISSIONED SECURITY OFFICER, CMP ####[facility] [address] [place], [place] [address]Dr. Kasia Nath Protein [Mass/Vol] 7.8 g/dL Normal 6.4-8.2 [facility] Comment on above: Performed By: #### B COMMISSIONED SECURITY OFFICER, CMP ####[facility] [address] [place], [place] [address]Dr. Kasia Nath Sodium [Moles/Vol] 134 mmol/L Critically low 136-145 [facility] Comment on above: Performed By: #### B COMMISSIONED SECURITY OFFICER, CMP ####[facility] [address] [address]Dr. Kasia Nath Urea nitrogen [Mass/Vol] 46.0 mg/dL Critically high 7.0-18.0 [facility] Comment on above: Performed By: #### B COMMISSIONED SECURITY OFFICER, CMP ####[facility] [address] [address]Dr. Kasia Nath Urea nitrogen/Creatinine [Mass ratio] 31.9 mg/mg Normal [facility] Comment on above: Performed By: #### B COMMISSIONED SECURITY OFFICER, CMP ####[facility] [address] [address]Dr. Kasia Nath BNPon 01-05-2023 Natriuretic peptide B (Bld) [Mass/Vol] 1389.0 pg/mL Normal <=1,800.0 [facility] Comment on above: Performed By: #### B COMMISSIONED SECURITY OFFICER, CMADM, CMP ####[facility] [address] [address]Dr. Kasia Nath CARDIAC EMERY ADMITon 023 CK [Catalytic activity/Vol] 138 U/L Normal 26-192 [facility] Comment on above: Performed By: #### B COMMISSIONED SECURITY OFFICER, CMADM, CMP ####[facility] [address] [address]Dr. Kasia Portillo CK.MB [Mass/Vol] 2.22 ng/mL Normal <=3.60 [facility] Comment on above: Performed By: #### B COMMISSIONED SECURITY OFFICER, CMADM, CMP ####[facility] [address] [address]Dr. Kasia Nath HSTROP 15.9 pg/mL Normal 4.0-51.3 [facility] Comment on above: Result Comment: CUT- OFF POINTS HAVE BEEN ESTABLISHED BASED ON THE FOURTH UNIVERSAL DEFINITIONS OF MYOCARDIAL INFARCTION. THE UPPER REFERENCE LIMIT (URL) OF TROPONIN, DEFINED THE 99TH PERCENTILE OF cTnI DISTRIBUTION IN A REFERENCE POPULATION, HAS BEEN CONFIRMED THE DECISION THRESHOLD FOR VA DIAGNOSIS. Performed By: #### B COMMISSIONED SECURITY OFFICER, CMADM, CMP ####[facility] [address] [address]Dr. Fartuncristy Nath GRETTA 178 ng/mL Critically high 9-82 [facility] Comment on above: Performed By: #### B COMMISSIONED SECURITY OFFICER, CMADM, CMP ####[facility] [address] [place], [place] [address]Dr. Kasia Nath CBC AUTO DIFFon 01-05-2023 BASO # 0.1 103/ul Normal 0.0-0.1 [facility] Comment on above: Performed By: #### C BC #### [facility] [address] [place] [id number] Dr. Kasia Nath Basophils/100 WBC (Bld) 0.7 % Normal 0.2-2.0 [facility] Comment on above: Performed By: #### C BC #### [facility] [address] [place] [address] Dr. Kasia Nath EO # 0.3 103/ul Normal 0.0-0.7 [facility] Comment on above: Performed By: #### C BC #### [facility] [address] [address] [address] Kasia Nath Eosinophils/100 WBC (Bld) 2.9 % Normal 0.9-7.0 [facility] Comment on above: Performed By: #### C BC #### [facility] [address] [place] [address] Dr. Kasia Nath Erythrocyte distribution width (RBC) [Ratio] 13.5 % Normal 11.0-15.0 [facility] Comment on above: Performed By: #### C BC #### [facility] [address] [place] [address] Dr. Kasia Nath Hematocrit (Bld) [Volume fraction] 39.8 % Normal 36.0-48.0 [facility] Comment on above: Performed By: #### C BC #### [facility] [address] [place] [address] Dr. Kasia Nath Hemoglobin (Bld) [Mass/Vol] 13.5 g/dL Normal 12.0-16.0 [facility] Comment on above: Performed By: #### C BC #### [facility] [address] [place] [address] Dr. Kasia Nath IG # 0.02 10e3/ul Normal 0.00-0.03 [facility] Comment on above: Performed By: #### C BC #### [facility] [address] [place] [address] Dr. Kasia Nath IG % 0.2 % Normal 0.0-0.5 [facility] Comment on above: Performed By: #### C BC #### [facility] [address] [place] [address] Dr. Kasia Nath LYMPH # 1.9 103/ul Normal 1.2-3.8 [facility] Comment on above: Performed By: #### C BC #### [facility] [address] [place] [address] Dr. Kasia Nath Lymphocytes/100 WBC (Bld) 22.0 % Normal 20.5-60.0 [facility] Comment on above: Performed By: #### C BC #### [facility] [address] [place] [address] Dr. Kasia Nath MANUAL DIFF REQ NO Normal [facility] Comment on above: Performed By: #### C BC #### [facility] [address] [place] [address] Dr. Kasia Nath MCH (RBC) [Entitic mass] 29.8 pg Normal 26.7-34.0 [facility] Comment on above: Performed By: #### C BC #### [facility] [address] [place] [address] Dr. Kasia Nath MCHC (RBC) [Mass/Vol] 33.9 g/dL Normal 29.9-35.2 [facility] Comment on above: Performed By: #### C BC #### [facility] [address] [place] [address] Dr. Kasia Nath MCV (RBC) [Entitic vol] 87.9 fL Normal 81.0-99.0 [facility] Comment on above: Performed By: #### C BC #### [facility] [address] [place] [address] Dr. Kasia Nath MONO # 0.8 103/ul Normal 0.3-0.8 [facility] Comment on above: Performed By: #### C BC #### [facility] [address] [address] [address] Kasia Nath Monocytes/100 WBC (Bld) 8.8 % Normal 1.7-12.0 [facility] Comment on above: Performed By: #### C BC #### [facility] [address] [address] [address] Kasia Nath NEUT # 5.6 103/ul Normal 1.4-6.5 [facility] Comment on above: Performed By: #### C BC #### [facility] [address] [place] [address] Dr. Kasia Nath Neutrophils/100 WBC (Bld) 65.4 % Normal 43.0-75.0 [facility] Comment on above: Performed By: #### C BC #### [facility] [address] [place] [address] Dr. Kasia Nath Platelet mean volume (Bld) [Entitic vol] 10.6 fL Normal 9.5-13.5 [facility] Comment on above: Performed By: #### C BC #### [facility] [address] [place] [address] Dr. Kasia Nath PLT 222 103/ul Normal 150-450 [facility] Comment on above: Performed By: #### C BC #### [facility] [address] [place] [address] Dr. Kasia Nath RBC 4.53 106/ul Normal 4.20-5.40 [facility] Comment on above: Performed By: #### C BC #### [facility] [address] [place] [address] Dr. Kasia Nath WBC 8.6 103/ul Normal 4.0-11.0 [facility] Comment on above: Performed By: #### C BC #### [facility] [address] [place] [address] Dr. Kasia Nath PROF 14(COMP METB)on 023 Albumin [Mass/Vol] 3.3 g/dL Critically low 3.4-5.0 [facility] Comment on above: Performed By: #### B COMMISSIONED SECURITY OFFICER, CMADM, CMP #### [facility] [address] [address] [address] Kasia Nath Albumin/Globulin [Mass ratio] 0.7 {ratio} Normal [facility] Comment on above: Performed By: #### B COMMISSIONED SECURITY OFFICER, CMADM, CMP #### [facility] [address] [address] [address] Kasia Nath ALP [Catalytic activity/Vol] 106 U/L Normal 46-116 [facility] Comment on above: Performed By: #### B COMMISSIONED SECURITY OFFICER, CMADM, CMP #### [facility] [address] [address] [address] Kasia Nath ALT [Catalytic activity/Vol] 22 U/L Normal 14-59 [facility] Comment on above: Performed By: #### B COMMISSIONED SECURITY OFFICER, CMADM, CMP #### [facility] [address] [place] [address] [address] Kasia Nath Anion gap [Moles/Vol] 12.0 mmol/L Normal [facility] Comment on above: Performed By: #### B COMMISSIONED SECURITY OFFICER, CMADM, CMP #### [facility] [address] [place] [address] Dr. Kasia Nath AST [Catalytic activity/Vol] 23 U/L Normal 15-37 [facility] Comment on above: Performed By: #### B COMMISSIONED SECURITY OFFICER, CMADM, CMP #### [facility] [address] [address] [address] Kasia Nath Bilirubin [Mass/Vol] 0.7 mg/dL Normal 0.2-1.0 [facility] Comment on above: Performed By: #### B COMMISSIONED SECURITY OFFICER, CMADM, CMP #### [facility] [address] [address] [address] Kasia Nath Calcium [Mass/Vol] 8.8 mg/dL Normal 8.5-10.1 [facility] Comment on above: Performed By: #### B COMMISSIONED SECURITY OFFICER, CMADM, CMP #### [facility] [address] [address] [address] Kasia Nath Chloride [Moles/Vol] 98 mmol/L Normal 98-107 [facility] Comment on above: Performed By: #### B COMMISSIONED SECURITY OFFICERLEONORA, CMP #### [facility] [address] [place] [address] Dr. Kasia Nath CO2 [Moles/Vol] 30.2 mmol/L Normal 21.0-32.0 [facility] Comment on above: Performed By: #### B COMMISSIONED SECURITY OFFICER, MACDM, CMP #### [facility] [address] [place] [address] Dr. Kasia Nath Creatinine [Mass/Vol] 1.19 mg/dL Critically high 0.55-1.02 [facility] Comment on above: Performed By: #### B COMMISSIONED SECURITY OFFICER, LEONORA, CMP #### [facility] [address] [place] [address] Dr. Kasia Nath EGFR-AF SRI LANKAN 53 mL/min/1.73m2 Critically low >=60 [facility] Comment on above: Performed By: #### B COMMISSIONED SECURITY OFFICERMACDM, CMP #### [facility] [address] [place] [address] Dr. Kasia Nath EGFR-NON AF SRI LANKAN 44 mL/min/1.73m2 Critically low >=60 [facility] Comment on above: Performed By: #### B COMMISSIONED SECURITY OFFICERLEONORA, CMP #### [facility] [address] [place] [address] Dr. Kasia Nath Globulin (S) [Mass/Vol] 4.7 g/dL Normal [facility] Comment on above: Performed By: #### B COMMISSIONED SECURITY OFFICER, MACDM, CMP #### [facility] [address] [place] [address] Dr. Kasia Nath Glucose [Mass/Vol] 124 mg/dL Critically high 74-106 [facility] Comment on above: Performed By: #### B COMMISSIONED SECURITY OFFICER, MACDM, CMP #### [facility] [address] [place] [address] Dr. Kasia Nath Potassium [Moles/Vol] 3.2 mmol/L Critically low 3.5-5.1 [facility] Comment on above: Performed By: #### B COMMISSIONED SECURITY OFFICER, CMADM, CMP #### [facility] [address] [address] [address] Kasia Nath Protein [Mass/Vol] 8.0 g/dL Normal 6.4-8.2 [facility] Comment on above: Performed By: #### B COMMISSIONED SECURITY OFFICER, CMADM, CMP #### [facility] [address] [address] [address] Kasia Nath Sodium [Moles/Vol] 137 mmol/L Normal 136-145 [facility] Comment on above: Performed By: #### B COMMISSIONED SECURITY OFFICER, CMADM, CMP #### [facility] [address] [place] [address] [address] Kasia Nath Urea nitrogen [Mass/Vol] 29.0 mg/dL Critically high 7.0-18.0 [facility] Comment on above: Performed By: #### B COMMISSIONED SECURITY OFFICER, CMADM, CMP #### [facility] [address] [place] [address] [address] Kasia Nath Urea nitrogen/Creatinine [Mass ratio] 24.4 mg/mg Normal [facility] Comment on above: Performed By: #### B COMMISSIONED SECURITY OFFICER, CMADM, CMP #### [facility] [address] [place] [address] [address] Kasia Nath TROPONIN, HIGH SENSITIVITYon 01-05-2023 HSTROP 18.4 pg/mL Normal 4.0-51.3 [facility] Comment on above: Result Comment: CUT- OFF POINTS HAVE BEEN ESTABLISHED BASED ON THE FOURTH UNIVERSAL DEFINITIONS OF MYOCARDIAL INFARCTION. THE UPPER REFERENCE LIMIT (URL) OF TROPONIN, DEFINED THE 99TH PERCENTILE OF cTnI DISTRIBUTION IN A REFERENCE POPULATION, HAS BEEN CONFIRMED THE DECISION THRESHOLD FOR VA DIAGNOSIS. Performed By: #### H STROPN ####[facility] [id number] [place] [id number]. Kasia Nath XR CHEST 1 Von 01-05-2023 [...] BIN ROJAS Date: 2023-01-05 04:39 Normal [facility] BNPon 01-02-2023 Natriuretic peptide B (Bld) [Mass/Vol] 2583.0 pg/mL Critically high <=1,800.0 [facility] Comment on above: Performed By: #### B COMMISSIONED SECURITY OFFICER, CMP ####[facility] [address] [place] [address]Dr. Kasia Nath CBC AUTO DIFFon 01-02-2023 BASO # 0.1 103/ul Normal 0.0-0.1 [facility] Comment on above: Performed By: #### P OCGLUC #### [facility] [address] [place] [address] [address] Kasia Nath Basophils/100 WBC (Bld) 0.9 % Normal 0.2-2.0 [facility] Comment on above: Performed By: #### P OCGLUC #### [facility] [address] [place] [address] [address] Kasia Nath EO # 0.2 103/ul Normal 0.0-0.7 [facility] Comment on above: Performed By: #### P OCGLUC #### [facility] [address] [place] [address] [address] Kasia Nath Eosinophils/100 WBC (Bld) 2.3 % Normal 0.9-7.0 [facility] Comment on above: Performed By: #### P OCGLUC #### [facility] [address] [address] [address] Kasia Nath Erythrocyte distribution width (RBC) [Ratio] 13.8 % Normal 11.0-15.0 [facility] Comment on above: Performed By: #### P OCGLUC #### [facility] [address] [address] [address] Kasia Nath Hematocrit (Bld) [Volume fraction] 35.5 % Critically low 36.0-48.0 [facility] Comment on above: Performed By: #### P OCGLUC #### [facility] [address] [place] [address] [address] Kasia Nath Hemoglobin (Bld) [Mass/Vol] 11.6 g/dL Critically low 12.0-16.0 [facility] Comment on above: Performed By: #### P OCGLUC #### [facility] [address] [place] [address] [address] Kasia Nath IG # 0.02 10e3/ul Normal 0.00-0.03 [facility] Comment on above: Performed By: #### P OCGLUC #### [facility] [address] [place] [address] [address] Kasia Nath IG % 0.3 % Normal 0.0-0.5 [facility] Comment on above: Performed By: #### P OCGLUC #### [facility] [address] [place] [address] [address] Kasia Nath LYMPH # 2.0 103/ul Normal 1.2-3.8 [facility] Comment on above: Performed By: #### P OCGLUC #### [facility] [address] [place] [address] [address] Kasia Nath Lymphocytes/100 WBC (Bld) 24.8 % Normal 20.5-60.0 [facility] Comment on above: Performed By: #### P OCGLUC #### [facility] [address] [place] [address] [address] Kasia Nath MANUAL DIFF REQ NO Normal [facility] Comment on above: Performed By: #### P OCGLUC #### [facility] [address] [place] [address] Dr. Kasia Nath MCH (RBC) [Entitic mass] 28.7 pg Normal 26.7-34.0 [facility] Comment on above: Performed By: #### P OCGLUC #### [facility] [address] [address] [address] Kasia Nath MCHC (RBC) [Mass/Vol] 32.7 g/dL Normal 29.9-35.2 [facility] Comment on above: Performed By: #### P OCGLUC #### [facility] [address] [place] [address] Dr. Kasia Nath MCV (RBC) [Entitic vol] 87.9 fL Normal 81.0-99.0 [facility] Comment on above: Performed By: #### P OCGLUC #### [facility] [address] [place] [address] Dr. Kasia Nath MONO # 0.8 103/ul Normal 0.3-0.8 [facility] Comment on above: Performed By: #### P OCGLUC #### [facility] [address] [place] [address] Dr. Kasia Nath Monocytes/100 WBC (Bld) 9.6 % Normal 1.7-12.0 [facility] Comment on above: Performed By: #### P OCGLUC #### [facility] [address] [place] [address] Dr. Kasia Nath NEUT # 5.0 103/ul Normal 1.4-6.5 [facility] Comment on above: Performed By: #### P OCGLUC #### [facility] [address] [place] [address] Dr. Kasia Nath Neutrophils/100 WBC (Bld) 62.1 % Normal 43.0-75.0 [facility] Comment on above: Performed By: #### P OCGLUC #### [facility] [address] [place] [address] Dr. Kasia Nath Platelet mean volume (Bld) [Entitic vol] 10.7 fL Normal 9.5-13.5 [facility] Comment on above: Performed By: #### P OCGLUC #### [facility] [address] [place] [address] Dr. Kasia Ntah PLT 204 103/ul Normal 150-450 [facility] Comment on above: Performed By: #### P OCGLUC #### [facility] [address] [address] [address] Kasia Nath RBC 4.04 106/ul Critically low 4.20-5.40 [facility] Comment on above: Performed By: #### P OCGLUC #### [facility] [address] [address] [address] Kasia Nath WBC 8.0 103/ul Normal 4.0-11.0 [facility] Comment on above: Performed By: #### P OCGLUC #### [facility] [address] [address] [address] Kasia Nath GLYCOHEMOGLOBIN A1Con 2022 ADA RECOMMENDATION SEE BELOW Normal [facility] Comment on above: Result Comment: ADA RECOMMENDED LIMIT 4.0 - 6.0 ADA THERAPEUTIC TARGET < 7.0 ACTION SUGGESTED > 7.0 Performed By: #### A 1C ####[facility] [address] [place] [address]Dr. Kasia Nath Glucose [Mass/Vol] 298 mg/dL Normal [facility] Comment on above: Performed By: #### A 1C ####[facility] [address] [place] [address]Dr. Kasia Nath HbA1c (Bld) [Mass fraction] 12.0 % Critically high 4.5-6.2 [facility] Comment on above: Performed By: #### A 1C ####[facility] [address] [place] [address]Dr. Kasia Nath POINT OF CARE GLUCOSEon 12-14 Glucose [Mass/Vol] 214 mg/dL Critically high 74-106 [facility] Comment on above: Performed By: #### C BC #### [facility] [address] [address] [address] Kasia Nath Glucose [Mass/Vol] 227 mg/dL Critically high 74-106 [facility] Comment on above: Performed By: #### C BC #### [facility] [address] [place] [address] [address] Kasia Nath PROF 14(COMP METB)on 023 Albumin [Mass/Vol] 2.6 g/dL Critically low 3.4-5.0 [facility] Comment on above: Performed By: #### B COMMISSIONED SECURITY OFFICER, CMP ####[facility] [address] [place] [address]Dr. Kasia Nath Albumin/Globulin [Mass ratio] 0.6 {ratio} Normal [facility] Comment on above: Performed By: #### B COMMISSIONED SECURITY OFFICER, CMP ####[facility] [address] [place] [address]Dr. Kasia Nath ALP [Catalytic activity/Vol] 94 U/L Normal 46-116 [facility] Comment on above: Performed By: #### B COMMISSIONED SECURITY OFFICER, CMP ####[facility] [address] [place], [place] [address]Dr. Kasia Nath ALT [Catalytic activity/Vol] 16 U/L Normal 14-59 [facility] Comment on above: Performed By: #### B COMMISSIONED SECURITY OFFICER, CMP ####[facility] [address] [place], [place] [address]Dr. Kasia Nath Anion gap [Moles/Vol] 10.6 mmol/L Normal [facility] Comment on above: Performed By: #### B COMMISSIONED SECURITY OFFICER, CMP ####[facility] [address] [place], [place] [address]Dr. Kasia Nath AST [Catalytic activity/Vol] 15 U/L Normal 15-37 [facility] Comment on above: Performed By: #### B COMMISSIONED SECURITY OFFICER, CMP ####[facility] [address] [place], [place] [address]Dr. Kasia Nath Bilirubin [Mass/Vol] 0.8 mg/dL Normal 0.2-1.0 [facility] Comment on above: Performed By: #### B COMMISSIONED SECURITY OFFICER, CMP ####[facility] [address] [place], [place] [address]Dr. Kasia Nath Calcium [Mass/Vol] 8.5 mg/dL Normal 8.5-10.1 [facility] Comment on above: Performed By: #### B COMMISSIONED SECURITY OFFICER, CMP ####[facility] [address] [place] [address]Dr. Kasia Nath Chloride [Moles/Vol] 102 mmol/L Normal 98-107 [facility] Comment on above: Performed By: #### B COMMISSIONED SECURITY OFFICER, CMP ####[facility] [address] [place], [place] [address]Dr. Kasia Nath CO2 [Moles/Vol] 30.2 mmol/L Normal 21.0-32.0 [facility] Comment on above: Performed By: #### B COMMISSIONED SECURITY OFFICER, CMP ####[facility] [address] [place], [place] [address]Dr. Kasia Nath Creatinine [Mass/Vol] 0.94 mg/dL Normal 0.55-1.02 [facility] Comment on above: Performed By: #### B COMMISSIONED SECURITY OFFICER, CMP ####[facility] [address] [place], [place] [address]Dr. Kasia Nath EGFR-AF SRI LANKAN >60 Normal >=60 [facility] Comment on above: Performed By: #### B COMMISSIONED SECURITY OFFICER, CMP ####[facility] [address] [place], [place] [address]Dr. Kasia Nath EGFR-NON AF SRI LANKAN 58 mL/min/1.73m2 Critically low >=60 [facility] Comment on above: Performed By: #### B COMMISSIONED SECURITY OFFICER, CMP ####[facility] [address] [place], [place] [address]Dr. Kasia Nath Globulin (S) [Mass/Vol] 4.0 g/dL Normal [facility] Comment on above: Performed By: #### B COMMISSIONED SECURITY OFFICER, CMP ####[facility] [address] [place], [place] [address]Dr. Kasia Nath Glucose [Mass/Vol] 150 mg/dL Critically high 74-106 [facility] Comment on above: Performed By: #### B COMMISSIONED SECURITY OFFICER, CMP ####[facility] [address] [place], [place] [address]Dr. Kasia Nath Potassium [Moles/Vol] 3.8 mmol/L Normal 3.5-5.1 [facility] Comment on above: Performed By: #### B COMMISSIONED SECURITY OFFICER, CMP ####[facility] [address] [place] [id number]. Kasia Nath Protein [Mass/Vol] 6.6 g/dL Normal 6.4-8.2 [facility] Comment on above: Performed By: #### B COMMISSIONED SECURITY OFFICER, CMP ####[facility] [address] [place] [id number]. Kasia Nath Sodium [Moles/Vol] 139 mmol/L Normal 136-145 [facility] Comment on above: Performed By: #### B COMMISSIONED SECURITY OFFICER, CMP ####[facility] [address] [place] [id number]. Kasia Nath Urea nitrogen [Mass/Vol] 24.0 mg/dL Critically high 7.0-18.0 [facility] Comment on above: Performed By: #### B COMMISSIONED SECURITY OFFICER, CMP ####[facility] [address] [place] [address]Dr. Kasia Nath Urea nitrogen/Creatinine [Mass ratio] 25.5 mg/mg Normal [facility] Comment on above: Performed By: #### B COMMISSIONED SECURITY OFFICER, CMP ####[facility] [address] [place] [address]Dr. Kasia Nath BNPon 01-01-2023 Natriuretic peptide B (Bld) [Mass/Vol] 1419.0 pg/mL Normal <=1,800.0 [facility] Comment on above: Performed By: #### B COMMISSIONED SECURITY OFFICER #### [facility] [address] [place] [address] Dr. Kasia Nath CARDIAC EMERY 3-6on 3 CK [Catalytic activity/Vol] 73 U/L Normal 26-192 [facility] Comment on above: Performed By: #### P OCGLUC #### [facility] [address] [address] [address] Kasia Nath CK [Catalytic activity/Vol] 80 U/L Normal 26-192 [facility] Comment on above: Performed By: #### P OCGLUC #### [facility] [address] [address] [address] Kasia Nath CK.MB [Mass/Vol] 1.71 ng/mL Normal <=3.60 [facility] Comment on above: Performed By: #### P OCGLUC #### [facility] [address] [place] [address] Dr. Kasia Nath CK.MB [Mass/Vol] 1.85 ng/mL Normal <=3.60 [facility] Comment on above: Performed By: #### P OCGLUC #### [facility] [address] [address] [address] Kasia Nath HSTROP 13.6 pg/mL Normal 4.0-51.3 [facility] Comment on above: Result Comment: CUT- OFF POINTS HAVE BEEN ESTABLISHED BASED ON THE FOURTH UNIVERSAL DEFINITIONS OF MYOCARDIAL INFARCTION. THE UPPER REFERENCE LIMIT (URL) OF TROPONIN, DEFINED THE 99TH PERCENTILE OF cTnI DISTRIBUTION IN A REFERENCE POPULATION, HAS BEEN CONFIRMED THE DECISION THRESHOLD FOR VA DIAGNOSIS. Performed By: #### P OCGLUC #### [facility] [address] [place] [address] Dr. Kasia Nath HSTROP 13.2 pg/mL Normal 4.0-51.3 [facility] Comment on above: Result Comment: CUT- OFF POINTS HAVE BEEN ESTABLISHED BASED ON THE FOURTH UNIVERSAL DEFINITIONS OF MYOCARDIAL INFARCTION. THE UPPER REFERENCE LIMIT (URL) OF TROPONIN, DEFINED THE 99TH PERCENTILE OF cTnI DISTRIBUTION IN A REFERENCE POPULATION, HAS BEEN CONFIRMED THE DECISION THRESHOLD FOR VA DIAGNOSIS. Performed By: #### P OCGLUC #### [facility] [address] [place] [address] Dr. Kasia Nath CARDIAC EMERY ADMITon 023 CK [Catalytic activity/Vol] 71 U/L Normal 26-192 [facility] Comment on above: Performed By: #### C BC #### [facility] [address] [address] [address] Kasia Naht CK.MB [Mass/Vol] 1.69 ng/mL Normal <=3.60 [facility] Comment on above: Performed By: #### C BC #### [facility] [address] [place] [address] Dr. Kasia Nath HSTROP 13.0 pg/mL Normal 4.0-51.3 [facility] Comment on above: Result Comment: CUT- OFF POINTS HAVE BEEN ESTABLISHED BASED ON THE FOURTH UNIVERSAL DEFINITIONS OF MYOCARDIAL INFARCTION. THE UPPER REFERENCE LIMIT (URL) OF TROPONIN, DEFINED THE 99TH PERCENTILE OF cTnI DISTRIBUTION IN A REFERENCE POPULATION, HAS BEEN CONFIRMED THE DECISION THRESHOLD FOR VA DIAGNOSIS. Performed By: #### C BC #### [facility] [address] [place] [address] Dr. Kasia Nath GRETTA 75 ng/mL Normal 9-82 [facility] Comment on above: Performed By: #### C BC #### [facility] [address] [place] [address] Dr. Kasia Nath CBC AUTO DIFFon 01-01-2023 BASO # 0.1 103/ul Normal 0.0-0.1 [facility] Comment on above: Performed By: #### C BC #### [facility] [address] [place] [address] Dr. Kasia Nath Basophils/100 WBC (Bld) 1.1 % Normal 0.2-2.0 [facility] Comment on above: Performed By: #### C BC #### [facility] [address] [place] [address] Dr. Kasia Nath EO # 0.2 103/ul Normal 0.0-0.7 [facility] Comment on above: Performed By: #### C BC #### [facility] [address] [place] [address] Dr. Kasia Nath Eosinophils/100 WBC (Bld) 2.9 % Normal 0.9-7.0 [facility] Comment on above: Performed By: #### C BC #### [facility] [address] [place] [address] Dr. Kasia Nath Erythrocyte distribution width (RBC) [Ratio] 13.8 % Normal 11.0-15.0 [facility] Comment on above: Performed By: #### C BC #### [facility] [address] [place] [address] Dr. Kasia Nath Hematocrit (Bld) [Volume fraction] 36.2 % Normal 36.0-48.0 [facility] Comment on above: Performed By: #### C BC #### [facility] [address] [address] [address] Kasia Nath Hemoglobin (Bld) [Mass/Vol] 12.1 g/dL Normal 12.0-16.0 [facility] Comment on above: Performed By: #### C BC #### [facility] [address] [place] [address] Dr. Kasia Nath IG # 0.02 10e3/ul Normal 0.00-0.03 [facility] Comment on above: Performed By: #### C BC #### [facility] [address] [place] [address] Dr. Kasia Nath IG % 0.3 % Normal 0.0-0.5 [facility] Comment on above: Performed By: #### C BC #### [facility] [address] [place] [address] Dr. Kasia Nath LYMPH # 1.5 103/ul Normal 1.2-3.8 [facility] Comment on above: Performed By: #### C BC #### [facility] [address] [place] [address] Dr. Kasia Nath Lymphocytes/100 WBC (Bld) 19.9 % Critically low 20.5-60.0 [facility] Comment on above: Performed By: #### C BC #### [facility] [address] [place] [address] Dr. Kasia Nath MANUAL DIFF REQ NO Normal [facility] Comment on above: Performed By: #### C BC #### [facility] [address] [place] [address] Dr. Kasia Nath MCH (RBC) [Entitic mass] 29.7 pg Normal 26.7-34.0 [facility] Comment on above: Performed By: #### C BC #### [facility] [address] [place] [address] Dr. Kasia Nath MCHC (RBC) [Mass/Vol] 33.4 g/dL Normal 29.9-35.2 [facility] Comment on above: Performed By: #### C BC #### [facility] [address] [address] [address] Kasia Nath MCV (RBC) [Entitic vol] 88.9 fL Normal 81.0-99.0 [facility] Comment on above: Performed By: #### C BC #### [facility] [address] [place] [address] Dr. Kasia Nath MONO # 0.6 103/ul Normal 0.3-0.8 [facility] Comment on above: Performed By: #### C BC #### [facility] [address] [place] [address] Dr. Kasia Nath Monocytes/100 WBC (Bld) 8.0 % Normal 1.7-12.0 [facility] Comment on above: Performed By: #### C BC #### [facility] [address] [place] [address] Dr. Kasia Nath NEUT # 5.1 103/ul Normal 1.4-6.5 [facility] Comment on above: Performed By: #### C BC #### [facility] [address] [place] [address] Dr. Kasia Nath Neutrophils/100 WBC (Bld) 67.8 % Normal 43.0-75.0 [facility] Comment on above: Performed By: #### C BC #### [facility] [address] [place] [address] Dr. Kasia Nath Platelet mean volume (Bld) [Entitic vol] 10.4 fL Normal 9.5-13.5 [facility] Comment on above: Performed By: #### C BC #### [facility] [address] [place] [address] Dr. Kasia Nath PLT 200 103/ul Normal 150-450 [facility] Comment on above: Performed By: #### C BC #### [facility] [address] [place], [place] [id number] Dr. Kasia Nath RBC 4.07 106/ul Critically low 4.20-5.40 [facility] Comment on above: Performed By: #### C BC #### [facility] [address] [place] [address] Dr. Kasia Nath WBC 7.5 103/ul Normal 4.0-11.0 [facility] Comment on above: Performed By: #### C #### [facility] [id number] Kasia Nath CT CHEST WO CONon [...] two extremes (Agatston score 101-1000). [email or web address]://pubs.rsna.org /doi/abs/10.1148/radi [email or web address] Electronically authenticated by: RENETTA WALLACE Date: 2023-01-01 14:55 Normal [facility] Covid-19 PCR (CVDTB)on 12-14 SARS-CoV-2 (COVID-19) RNA FERN+probe Ql (Unsp spec) Not detected Normal NOT DETECTED [facility] Comment on above: Result Comment: When diagnostic [...] for this test is supported by the Transfer of Health and Human Service's declaration that [...] longer be used). Performed By: #### [facility] #### [facility] [address] [place] [address] Dr. Kasia Nath ECHO LIMITED STUDYon 023 ECHO LIMITED STUDY Patient: SAIMA CALL Exam Date: 01/01/2023 : 1945 Gender:F Ordering : LD GUERRERO . Admission #: [id number] Family : Order #: [id number] CLICK HERE TO VIEW EXAM ECHOCARDIOGRAM REPORT [...] Medrano M.D. on 01/01/2023 at 13:19 Normal [facility] GLYCOHEMOGLOBIN A1Con 2022 ADA RECOMMENDATION SEE BELOW Normal [facility] Comment on above: Result Comment: ADA RECOMMENDED LIMIT 4.0 - 6.0 ADA THERAPEUTIC TARGET < 7.0 ACTION SUGGESTED > 7.0 Performed By: #### P OCGLUC #### [facility] [address] [address] [address] Kasia Nath Glucose [Mass/Vol] 318 mg/dL Normal [facility] Comment on above: Performed By: #### P OCGLUC #### [facility] [address] [address] [address] Kasia Nath HbA1c (Bld) [Mass fraction] 12.7 % Critically high 4.5-6.2 [facility] Comment on above: Performed By: #### P OCGLUC #### [facility] [address] [address] [address] Kasia Nath POINT OF CARE GLUCOSEon 12-14 Glucose [Mass/Vol] 248 mg/dL Critically high -106 [facility] Comment on above: Performed By: #### P OCGLUC #### [facility] [address] [address] [address] Kasia Nath Glucose [Mass/Vol] 213 mg/dL Critically high 74-106 [facility] Comment on above: Performed By: #### P OCGLUC ####[facility] [id number] [place], [place] [address]TqDr. Kasia Nath Glucose [Mass/Vol] 162 mg/dL Critically high 74-106 [facility] Comment on above: Performed By: #### P OCGLUC ####[facility] [id number] [id number]. Kasia Nath PROF CHEM 8 (BAS METB)on Anion gap [Moles/Vol] 11.8 mmol/L Normal [facility] Comment on above: Performed By: #### C BC #### [facility] [address] [address] [address] Kasia Nath Calcium [Mass/Vol] 8.4 mg/dL Critically low 8.5-10.1 [facility] Comment on above: Performed By: #### C BC #### [facility] [address] [address] [address] Kasia Nath Chloride [Moles/Vol] 102 mmol/L Normal 98-107 [facility] Comment on above: Performed By: #### C BC #### [facility] [address] [address] [address] Kasia Nath CO2 [Moles/Vol] 28.4 mmol/L Normal 21.0-32.0 [facility] Comment on above: Performed By: #### C BC #### [facility] [address] [address] [address] Kasia Nath Creatinine [Mass/Vol] 1.09 mg/dL Critically high 0.55-1.02 [facility] Comment on above: Performed By: #### C BC #### [facility] [address] [address] [address] Kasia Nath EGFR-AF SRI LANKAN 59 mL/min/1.73m2 Critically low >=60 [facility] Comment on above: Performed By: #### C BC #### [facility] [address] [address] [address] Kasia Nath EGFR-NON AF SRI LANKAN 49 mL/min/1.73m2 Critically low >=60 [facility] Comment on above: Performed By: #### C BC #### [facility] [address] [address] [address] Kasia Nath Glucose [Mass/Vol] 247 mg/dL Critically high 74-106 [facility] Comment on above: Performed By: #### C BC #### [facility] [address] [address] [address] Kasia Nath Potassium [Moles/Vol] 4.2 mmol/L Normal 3.5-5.1 [facility] Comment on above: Performed By: #### C BC #### [facility] [address] [address] [address] Kasia Nath Sodium [Moles/Vol] 138 mmol/L Normal 136-145 [facility] Comment on above: Performed By: #### C BC #### [facility] [address] [address] [address] Kasia Nath Urea nitrogen [Mass/Vol] 28.0 mg/dL Critically high 7.0-18.0 [facility] Comment on above: Performed By: #### C BC #### [facility] [address] [place], [place] [address] Dr. Kasia Nath Urea nitrogen/Creatinine [Mass ratio] 25.7 mg/mg Normal [facility] Comment on above: Performed By: #### C BC #### [facility] [address] [place], [place] [address] Dr. Kasia Nath XR CHEST 1 Von [...] by: Miranda ALVAREZ Date: 2023-01-01 05:38 Normal [facility] ECHOCARDIO M/2D COMPLETEon 1 11-15-2021 ECHOCARDIO M/2D COMPLETE Patient: JOE CALL Exam Date: 09/15/2022 : 1945 Gender:F Ordering : [facility] Admission #: [id number] Family : DR SHANTEL STEVEN M.D. Order #: [id number] CLICK HERE TO VIEW EXAM ECHOCARDIOGRAM REPORT [...] M.D. on 09/15/2022 at 18:17 Normal [facility] GI PANEL (PCR)on 05-02-2022 Adenovirus F 40/41 Not detected Normal NOT DETECTED [facility] Comment on above: Performed By: #### P OCGLUC #### [facility] [address] [place] [address] Dr. Kasia Nath Astrovirus Not detected Normal NOT DETECTED [facility] Comment on above: Performed By: #### P OCGLUC #### [facility] [address] [address] [address] Kasia Nath C. Diff toxin A/B Not detected Normal NOT DETECTED [facility] Comment on above: Performed By: #### P OCGLUC #### [facility] [address] [address] [address] Kasia Nath Campylobacter Not detected Normal NOT DETECTED [facility] Comment on above: Performed By: #### P OCGLUC #### [facility] [address] [address] [address] Kasia Nath Cryptosporidium Not detected Normal NOT DETECTED [facility] Comment on above: Performed By: #### P OCGLUC #### [facility] [address] [address] [address] Kasia Nath Cyclos. Cayetanensis Not detected Normal NOT DETECTED [facility] Comment on above: Performed By: #### P OCGLUC #### [facility] [address] [address] [address] Kasia Nath E. Coli O157 Not Applicable Normal Not Applicable [facility] Comment on above: Performed By: #### P OCGLUC #### [facility] [address] [place] [address] Dr. Kasia Nath E. histolytica Not detected Normal NOT DETECTED [facility] Comment on above: Performed By: #### P OCGLUC #### [facility] [address] [address] [address] Kasia Nath EAEC Not detected Normal NOT DETECTED [facility] Comment on above: Performed By: #### P OCGLUC #### [facility] [address] [place] [address] Dr. Kasia Nath EIEC Not detected Normal NOT DETECTED [facility] Comment on above: Performed By: #### P OCGLUC #### [facility] [address] [place] [address] Dr. Kasia Nath EPEC Detected Abnormal NOT DETECTED [facility] Comment on above: Performed By: #### P OCGLUC #### [facility] [address] [place] [address] Dr. Kasia Nath ETEC Not detected Normal NOT DETECTED [facility] Comment on above: Performed By: #### P OCGLUC #### [facility] [address] [address] [address] Kasia Ewing Not detected Normal NOT DETECTED [facility] Comment on above: Performed By: #### P OCGLUC #### [facility] [address] [address] [address] Kasia KHAN CONTROLS PASSED Normal [facility] Comment on above: Performed By: #### P OCGLUC #### [facility] [address] [address] [address] Kasia FRAIRE HEADER GI PANEL BACTERIA Normal [facility] Comment on above: Performed By: #### P OCGLUC #### [facility] [address] [place] [address] Dr. Kasia GE ECOLI GI PANEL DIARRHEAGENIC E.COLI / SHIGELLA Normal [facility] Comment on above: Performed By: #### P OCGLUC #### [facility] [address] [place] [address] Dr. Kasia GE INFO SEE BELOW [facility] Comment on above: Result Comment: EAEC - Enteroaggregative E. Coli EPEC- Enteropathogenic E. Coli ETEC- Enterotoxigenic E. Coli lt/st STEC- Shigella-like toxin-producing E. Coli stx1/stx2 EIEC- Shigella/Enteroinvasive E. Coli Performed By: #### P OCGLUC #### [facility] [address] [place] [address] Dr. Kasia GE PARASITES GI PANEL PARASITES Normal [facility] Comment on above: Performed By: #### P OCGLUC #### [facility] [address] [address] [address] Kasia GE VIRUS GI PANEL VIRUSES Normal [facility] Comment on above: Performed By: #### P OCGLUC #### [facility] [address] [place] [address] Dr. Kasia Nath Norovirus GI/GII Not detected Normal NOT DETECTED [facility] Comment on above: Performed By: #### P OCGLUC #### [facility] [address] [place] [address] Dr. Kasia Garland. Shigelloides Not detected Normal NOT DETECTED [facility] Comment on above: Performed By: #### P OCGLUC #### [facility] [address] [place] [address] Dr. Kasia Nath Rotavirus A Not detected Normal NOT DETECTED [facility] Comment on above: Performed By: #### P OCGLUC #### [facility] [address] [place] [address] Dr. Kasia Nath Salmonella Not detected Normal NOT DETECTED [facility] Comment on above: Performed By: #### P OCGLUC #### [facility] [address] [place] [address] Dr. Kasia Nath Sapovirus Not detected Normal NOT DETECTED [facility] Comment on above: Performed By: #### P OCGLUC #### [facility] [address] [place] [address] Dr. Kasia Nath STEC Not detected Normal NOT DETECTED [facility] Comment on above: Performed By: #### P OCGLUC #### [facility] [address] [place] [address] Dr. Kasia Nath Vibrio Not detected Normal NOT DETECTED [facility] Comment on above: Performed By: #### P OCGLUC #### [facility] [address] [place] [address] Dr. Kasia Nath Vibrio Cholera Not detected Normal NOT DETECTED [facility] Comment on above: Performed By: #### P OCGLUC #### [facility] [address] [place] [address] Dr. Kasia Nath Y. Enterocolitica Not detected Normal NOT DETECTED [facility] Comment on above: Performed By: #### P OCGLUC #### [facility] [address] [place] [address] Dr. Kasia Nath OCC BLD IMMUNO SCREENon -2 OCCULT BLOOD Negative Normal NEGATIVE [facility] Comment on above: Performed By: #### C BC #### [facility] [address] [address] [address] Kasia Nath XR knee BI 4Von 08-25-2021 XR knee BI 4V [facility] [employer] Other XR knee BI 4V [facility] [employer] Other XR knee BI 4V [address] [place] [address] [employer] Other XR knee BI 4V [address] [employer] Other XR knee BI 4V XRay Report [facility] [employer] Other XR knee BI 4V Signed [employer] Other XR knee BI 4V Patient: Joe Call MR#: [id number] [place] [employer] Other XR knee BI 4V 0 [employer] Other XR knee BI 4V : 1945 Acct:[id number] [place] [employer] Other XR knee BI 4V Age/Sex: 76 / F ADM Date: 08/25/21 [employer] Other XR knee BI 4V Loc: [facility] Room: Type : [facility] [employer] Other XR knee BI 4V Attending Dr: Akbar Cui II, MD [employer] Other XR knee BI 4V Ordering Provider: Akbar Cui MD [employer] Other XR knee BI 4V Date of Service: 08/25/21 [employer] Other XR knee BI 4V XR/XR knee BI 4V: Pain in right knee;Pain in left knee [employer] Other XR knee BI 4V Copies to: Akbar Cui MD [employer] Other XR knee BI 4V XR knee BI 4V 08/25/2021 1:32 PM [employer] Other XR knee BI 4V SIGNS AND SYMPTOMS: Bilateral knee pain with decreased range of motion, weakness [employer] Other XR knee BI 4V PROTOCOL: Frontal, lateral, and sunrise views of the bilateral knees [employer] Other XR knee BI 4V COMPARISON: None [employer] Other XR knee BI 4V FINDINGS: [employer] Other XR knee BI 4V There is mild narrowing of the medial weightbearing joint spaces. There is mild patellofemoral [employer] Other XR knee BI 4V joint space loss. There is spurring of the poles of the patella bilaterally. There is mild lateral [employer] Other XR knee BI 4V patellar subluxation bilaterally. There is no evidence of acute displaced fracture. Well-corticated [employer] Other XR knee BI 4V ossific structures o r separate from the right medial weightbearing joint space. This may represent a [employer] Other XR knee BI 4V calcified loose bodies. [employer] Other XR knee BI 4V XR/XR knee BI 4V [employer] Other XR knee BI 4V IMPRESSION: [facility] [employer] Other XR knee BI 4V Degenerative changes are noted are noted bilaterally, as above. [employer] Other XR knee BI 4V Well-corticated ossific structures or separate from the right medial weightbearing joint space. This [employer] Other XR knee BI 4V may represent a calcified loose bodies. [employer] Other XR knee BI 4V No acute displaced fracture. [employer] Other XR knee BI 4V There is mild latera l subluxation of the patella within the patellofemoral joint space bilaterally. [employer] Other XR knee BI 4V Impression dictated by: Emery Lobo M.D.08/25/2021 2:51 PM [employer] Other XR knee BI 4V Dictation Location: [place] [address] [employer] Other XR knee BI 4V Transcribed By: [facility] 08/25/21 [facility] [employer] Other XR knee BI 4V Dictated By: Emery Lobo II, MD 08/25/21 [facility] [employer] Other XR knee BI 4V Signed By: [employer] Other XR knee BI 4V 08/25/21 [facility] [employer] Other XR pelvis 1-2Von 08-25-2021 XR pelvis 1-2V XR/XR pelvis 1-2V: Pain in right knee;Pain in left knee [employer] Other XR pelvis 1-2V XR pelvis 1-2V 08/25/2021 1:32 PM [employer] Other XR pelvis 1-2V SIGNS AND SYMPTOMS: Bilateral generalized knee pain, limited range of motion with weakness [employer] Other XR pelvis 1-2V PROTOCOL: Frontal radiograph of the pelvis [employer] Other XR pelvis 1-2V There is mild narrowing of the weightbearing joint spaces. Mild degenerative changes are noted in [employer] Other XR pelvis 1-2V the symphysis pubis. There is no evidence of fracture or dislocation. Vascular calcifications are [employer] Other XR pelvis 1-2V present in the pelvis. [employer] Other XR pelvis 1-2V XR/XR pelvis 1-2V [employer] Other XR pelvis 1-2V No fracture or dislocation. [employer] Other XR pelvis 1-2V Mild degenerative changes are noted in the joint space of the hips. [employer] Other XR pelvis 1-2V Impression dictated by: Emery Lobo M.D.08/25/2021 2:54 PM [employer] Other XR pelvis 1-2V Transcribed By: [facility] 08/25/21 [facility] [employer] Other XR pelvis 1-2V Dictated By: Emery Lobo II, MD 08/25/21 [facility] [employer] Other XR pelvis 1-2V 08/25/21 [facility] [employer] Other Social History Date Type Detail Facility Start: 08-04-2022 End: 01-18-2024 Tobacco smoking status Ex-smoker (finding) [facility] [place] Start: 1945 Sex Assigned At Female F [facility] Sex Assigned At [employer] Other Tobacco smoking status Never Gener al Surgery [facility] Vital Signs Date Time Vital Sign Value Performing Clinician Facility 04-03-2024 11:29-0400 Body height 165.1 cm MD Shantel Steven Work Phone: [facility] 04-03-2024 11:29-0400 Body mass index (BMI) [Ratio] 43.7 kg/m2 MD Shantel Steven Work Phone: [facility] 04-03-2024 11:29-0400 Body weight 119.29 kg MD Shantel Steven Work Phone: [facility] 04-03-2024 11:29-0400 Diastolic blood pressure 71 mm[Hg] MD Shantel Steven Work Phone: [facility] 04-03-2024 11:29-0400 Heart rate 56 /min MD Shantel Steven Work Phone: [facility] 04-03-2024 11:29-0400 Systolic blood pressure 116 mm[Hg] MD Shantel Steven Work Phone: [facility] 03-25-2024 15:15-0400 Body height 165.1 cm MD Shantel Steven Work Phone: [facility] 03-25-2024 15:15-0400 Body mass index (BMI) [Ratio] 43.9 kg/m2 MD Shantel Steven Work Phone: [facility] 03-25-2024 15:15-0400 Body weight 119.74 kg MD Shantel Steven Work Phone: [facility] 03-25-2024 15:15-0400 Diastolic blood pressure 87 mm[Hg] MD Shantel Steven Work Phone: [facility] 03-25-2024 15:15-0400 Heart rate 66 /min MD Shantel Steven Work Phone: [facility] 03-25-2024 15:15-0400 Systolic blood pressure 125 mm[Hg] MD Shantel Steven Work Phone: [facility] 02-15-2024 14:18-0400 Body height 165.1 cm [facility] 02-15-2024 14:18-0400 Body mass index (BMI) [Ratio] 38.6 kg/m2 [facility] 02-15-2024 14:18-0400 Body weight 105.23 kg [facility] 02-15-2024 14:18-0400 Diastolic blood pressure 66 mm[Hg] [facility] 02-15-2024 14:18-0400 Heart rate 55 /min [facility] 02-15-2024 14:18-0400 Systolic blood pressure 114 mm[Hg] [facility] 01-18-2024 10:23-0500 Body height 165.1 cm [facility] 01-18-2024 10:23-0500 Body mass index (BMI) [Ratio] 43.2 kg/m2 [facility] 01-18-2024 10:23-0500 Body weight 117.93 kg [facility] 01-18-2024 10:23-0500 Diastolic blood pressure 70 mm[Hg] [facility] 01-18-2024 10:23-0500 Heart rate 98 /min [facility] 01-18-2024 10:23-0500 SaO2% (BldA) [Mass fraction] 65 % [facility] 01-18-2024 10:23-0500 Systolic blood pressure 110 mm[Hg] [facility] 10-23-2023 16:00-0500 Body height 165.1 cm Azghassan Kochs Other [facility] Other 10-23-2023 16:00-0500 Body mass index (BMI) [Ratio] 44.63 kg/m2 Azghassan Kochs Other [facility] Other 10-23-2023 16:00-0500 Body temperature 96.8 [degF] Aziz Bakhous Other [facility] Other 10-23-2023 16:00-0500 Body weight 121.66 kg Aziz Bakhous Other [facility] Other 10-23-2023 16:00-0500 Diastolic blood pressure 60 mm[Hg] Aziz Bakhous Other [facility] Other 10-23-2023 16:00-0500 Respiratory rate 18 /min Aziz Bakhous Other [facility] Other 10-23-2023 16:00-0500 SaO2% (BldA) [Mass fraction] 99 % Aziz Bakhous Other [facility] [employer] Other 10-23-2023 16:00-0500 Systolic blood pressure 124 mm[Hg] Jaleesa Vanessa Other [facility] Other 10-18-2023 13:45-0500 Body height 165.1 cm Shantel Steven Other [facility] Other 10-18-2023 13:45-0500 Body mass index (BMI) [Ratio] 44.86 kg/m2 Shantel Steven Other [facility] Other 10-18-2023 13:45-0500 Body temperature 97.3 [degF] Shantel Steven Other [facility] Other 10-18-2023 13:45-0500 Body weight 122.29 kg Shantel Steven Other [facility] Other 10-18-2023 13:45-0500 Diastolic blood pressure 84 mm[Hg] Shantel Steven Other [facility] Other 10-18-2023 13:45-0500 SaO2% (BldA) [Mass fraction] 97 % Shantel Steven Other [facility] Other 10-18-2023 13:45-0500 Systolic blood pressure 132 mm[Hg] Shantel Steven Other [facility] Other 09-04-2023 14:00-0400 Body height 165.1 cm Shantel Steven Other [facility] Other 09-04-2023 14:00-0400 Body mass index (BMI) [Ratio] 43.06 kg/m2 Shantel Steven Other [facility] Other 09-04-2023 14:00-0400 Body weight 117.39 kg Shantel Steven Other [facility] Other 09-04-2023 14:00-0400 Diastolic blood pressure 69 mm[Hg] Shantel Steven Other [facility] Other 09-04-2023 14:00-0400 Systolic blood pressure 127 mm[Hg] Shantel Steven Other [facility] Other 07-17-2023 10:00-0400 Body height 165.1 cm Shantel Steven Other [facility] Other 07-17-2023 10:00-0400 Body mass index (BMI) [Ratio] 43.03 kg/m2 Shantel Steven Other [facility] Other 07-17-2023 10:00-0400 Body weight 117.3 kg Shantel Steven Other [facility] Other 07-17-2023 10:00-0400 Diastolic blood pressure 76 mm[Hg] Shantel Steven Other [facility] Other 07-17-2023 10:00-0400 Systolic blood pressure 164 mm[Hg] Shantel Steven Other [facility] Other 04-30-2023 14:30-0400 Body height 165.1 cm Shantel Steven Other [facility] Other 04-30-2023 14:30-0400 Body mass index (BMI) [Ratio] 43.43 kg/m2 Shantel Steven Other [facility] Other 04-30-2023 14:30-0400 Body weight 118.39 kg Shantel Steven Other [facility] Other 04-30-2023 14:30-0400 Diastolic blood pressure 75 mm[Hg] Shantel Steven Other [facility] Other 04-30-2023 14:30-0400 Systolic blood pressure 135 mm[Hg] Shantel Steven Other [facility] Other 03-09-2023 12:15-0400 Body height 165.1 cm Shantel Steven Other [facility] Other 03-09-2023 12:15-0400 Body mass index (BMI) [Ratio] 43.59 kg/m2 Shantel Steven Other [facility] Other 03-09-2023 12:15-0400 Body weight 118.84 kg Shantel Steven Other [facility] Other 03-09-2023 12:15-0400 Diastolic blood pressure 82 mm[Hg] Shantel Steven Other [facility] Other 03-09-2023 12:15-0400 SaO2% (BldA) [Mass fraction] 97 % Shantel Steven Other [facility] Other 03-09-2023 12:15-0400 Systolic blood pressure 130 mm[Hg] Shantel Steven Other [facility] Other 02-20-2023 10:00-0400 Body height 165.1 cm Shantel Steven Other [facility] Other 02-20-2023 10:00-0400 Body mass index (BMI) [Ratio] 41.93 kg/m2 Shantel Steven Other [facility] Other 02-20-2023 10:00-0400 Body weight 114.31 kg Shantel Steven Other [facility] Other 02-20-2023 10:00-0400 Diastolic blood pressure 84 mm[Hg] Shantel Steven Other [facility] Other 02-20-2023 10:00-0400 Systolic blood pressure 132 mm[Hg] Shantel Steven Other [facility] Other 08-04-2022 13:33-0400 Blood Pressure Location Bin NILL [facility] 08-04-2022 13:33-0400 Diastolic blood pressure 88 mm[Hg] Bin NILL [facility] 08-04-2022 13:33-0400 Heart rate 76 /min Bin NILL [facility] 08-04-2022 13:33-0400 Respiratory rate 16 /min Bin NILL [facility] 08-04-2022 13:33-0400 Systolic blood pressure 130 mm[Hg] Bin NILL [facility] 08-25-2021 14:30-0400 Body height 165.1 cm Akbar Wattsle II Other [facility] Other 08-25-2021 14:30-0400 Body mass index (BMI) [Ratio] 43.26 kg/m2 Akbar Gardnerisle II Other [facility] Other 08-25-2021 14:30-0400 Body weight 117.94 kg Akbar Wattsle II Other [facility] Other Functional Status Date Assessment Result Facility 08-04-2022 Functional Status N/A [facility] Clinical Notes 08-25-2021 to 03-07-2024 Note Date & Type Note Facility 03-07-2024 Note [place] [facility] Subjective Joe Call is a 78 y.o. [...] cardiac cath after abnormal stress test in 2016 and that did not show significant disease. She says she had prior cardiac catheterizations. She has history of VA in the past and underwent balloon angioplasty (many years ago, prior to the stent era). 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 In December 2022 she was admitted to the [facility] with decompensated diastolic heart failure, she was treated with diuretic therapy. In February 2023 she was admitted to [facility] with dehydration secondary to acute gastroenteritis. She also had acute kidney injury in that setting. She has history of breast cancer more than 25 years ago s/p mastectomy, chemo and radiation therapy. She has lymphedema in the left arm. In the past she saw a [employer] principal for bleeding behind the eye . she [...] TIMES DAILY NEEDED (more content not included)... [facility] 02-15-2024 Hospital Discharge instructions Ambulatory OrdersReferral to Urology Time Frame: 02/15/24, Location: None [facility] Work Phone: 11-19-2023 Evaluation note Encounter Date Diagnosis Assessment Notes Nov, Lumbar degenerative disc disease (ICD-10 - M51.36) [facility] Other [id number] Evaluation note* Encounter Date Diagnosis Assessment Notes [...] will check vitamin B12 level next visit [facility] Other 12-11-2023 Evaluation note* Encounter Date Diagnosis Assessment Notes Treatment Notes Treatment Clinical Notes Oct, Lumbar degenerative disc disease (ICD-10 - M51.36) [facility] Other 12-07-2023 Evaluation note* Encounter Date Diagnosis Assessment Notes Treatment Notes Treatment Clinical Notes Oct, Bronchitis (ICD-10 - J40) Finish meds. No acute need for antibiotic at this time Oct, Diabetes mellitus with chronic kidney disease (ICD-10 - E11.22) Due for labs, followup w Dr. Mcconnell Oct, Lumbar degenerative disc disease (ICD-10 - M51.36) Pt will contact neurosurgery. [facility] Other 10-27-2023 Evaluation note* Encounter Date Diagnosis Assessment Notes Treatment Notes Treatment Clinical Notes Aug, Chronic kidney disease, stage 4 (severe) (ICD-10 - N18.4) [facility] Other 10-24-2023 Evaluation note* Encounter Date Diagnosis [...] (ICD-10 - M51.36) Pt requests referral to [place] [facility]. Reviewed OAR[facility] report. Aug, Stress incontinence of urine (ICD-10 - N39.3) R/o infection. Discussed could be related to her diabetes med as well. [facility] Other 10-12-2023 Evaluation note* Encounter Date Diagnosis Assessment Notes Treatment Notes Treatment Clinical Notes 12 Oct, 2023 Lumbar degenerative disc disease (ICD-10 - M51.36) [facility] Other 10-06-2023 NotePatient here for 1 mo follow up CAD, chronic diastolic heart failure, and PAF. Follow up labs have not been completed yet. Her laborer mine recently started her on Farxiga but she [...] light-headedness. All other systems reviewed and are negative.[facility] 08-17-2023 NoteCardiology Clinic Note Subjective Joe [...] In February 2023 she was admitted to [facility] with dehydration secondary to acute gastroenteritis. She also had acute kidney injury in that setting. She has history of breast cancer more than 25 years ago s/p mastectomy, chemo and radiation therapy. She has lymphedema in the left arm. She has been doing well. No chest pain. No dyspnea. No palpitations. She reports that she is seeing a [employer] principal for bleeding behind the eye . She has had a lot of balance issues, uses a walker to ambulate and has had about 10 falls in the past year. Update: 07/23/2023 She was admitted to [facility] 07/08-07/10/2023 for decompensated HFpEF She was diuresed [...] with questions Was prescribed Farxiga by her laborer mine but did not start after reading about [...] DAYS, Disp: , Rfl (more content not included)...[facility]* Encounter Date Diagnosis Assessment Notes Treatment Notes Treatment Clinical Notes Jul, Lumbar degenerative disc disease (ICD-10 - M51.36) [facility] Other 09-11-2023 NoteCardiology Clinic Note Subjective Joe [...] In February 2023 she was admitted to [facility] with dehydration secondary to acute gastroenteritis. She also had acute kidney injury in that setting. She has history of breast cancer more than 25 years ago s/p mastectomy, chemo and radiation therapy. She has lymphedema in the left arm. She has been doing well. No chest pain. No dyspnea. No palpitations. She reports that she is seeing a [employer] principal for bleeding behind the eye . She has had a lot of balance issues, uses a walker to ambulate and has had about 10 falls in the past year. Update: 07/23/2023 She was admitted to [facility] 07/08-07/10/2023 for decompensated HFpEF She was diuresed [...] time each day., Disp: (more content not included)...[facility]09-11-2023 NotePatient here for follow up [facility] for CHF. She was seen as inpatient [...] weakness. All other systems reviewed and are negative.[facility] 07-17-2023 Evaluation note* Encounter Date Diagnosis [...] refill. Oarrs reviewed. No med changes needed. [facility] Other 07-05-2023 Evaluation note* Encounter Date Diagnosis Assessment Notes Treatment Notes Treatment Clinical Notes May, C. difficile colitis (ICD-10 - A04.72) [facility] Other 06-19-2023 Evaluation note* Encounter Date Diagnosis Assessment Notes Treatment Notes Treatment Clinical Notes Apr, Skin candidiasis (ICD-10 - B37.2) Discussed this is related to her hyperglycemia. Will treat w nystatin, but needs improvement in diet and glucose readings. Apr, Type 2 diabetes mellitus with hyperglycemia, unspecified whether joint terminal attack controller insulin use (ICD-10 - E11.65) Pt agrees to see Dr Mcconnell again. Recently sent to ER for glucose of 608. Apr, Tremor of both hands (ICD-10 - R25.1) Referral to Dr. Lopez Apr, Memory changes (ICD- 10 - R41.3) Referral to Dr. Lopez Apr, Gastroesophageal reflux disease without esophagitis (ICD-10 - K21.9) Improved on carafate w PPI. [facility] Other 06-14-2023 [place] Cardiology - [facility] Subjective Joe Call is a 77 [...] cardiac cath after abnormal stress test in 2016 and that did not show significant disease. She says she had prior cardiac catheterizations. She has history of VA in the past and underwent balloon angioplasty (many years ago, prior to the stent era). 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 In December 2022 she was admitted to the [facility] with decompensated diastolic heart failure, she was treated with diuretic therapy. In February 2023 she was admitted to [facility] with dehydration secondary to acute gastroenteritis. She also had acute kidney injury in that setting. She has history of breast cancer more than 25 years ago s/p mastectomy, chemo and radiation therapy. She has lymphedema in the left arm. She has been doing well. No chest pain. No dyspnea. No palpitations. She reports that she is seeing a [employer] principal for bleeding behind the eye . She [...] 40 mg by mouth (more content not included)...[facility]06-01-2023 Evaluation note* Encounter Date Diagnosis Assessment Notes Treatment Notes Treatment Clinical Notes Apr, Gastroesophageal ref lux disease without esophagitis (ICD-10 - K21.9) [facility] Other 04-28-2023 Evaluation note* Encounter Date Diagnosis [...] get lab ordered on 02/20 today Feb, joint terminal attack controller (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 insulin (ICD-10 - Z79.4) [facility] Other 04-26-2023 Evaluation note* Encounter Date Diagnosis Assessment Notes Treatment Notes Treatment Clinical Notes Feb, C. difficile colitis (ICD-10 - A04.72) [facility] Other 04-17-2023 Evaluation note* Encounter Date Diagnosis Assessment Notes Treatment Notes Treatment Clinical Notes Feb, Gastroesophageal ref lux disease without esophagitis (ICD-10 - K21.9) [facility] Other 04-14-2023 Evaluation note* Encounter Date Diagnosis Assessment Notes Treatment Notes Treatment Clinical Notes Feb, Chronic diarrhea (ICD-10 - K52.9) [facility] Other 04-11-2023 Evaluation note* Encounter Date Diagnosis [...] it really overall has not been helpful. [facility] Other 01-13-2023 Evaluation note* Encounter Date Diagnosis Assessment Notes Treatment Notes Treatment Clinical Notes Nov, Type 2 diabetes mellitus with hyperglycemia, unspecified whether correction insulin use (ICD-10 - E11.65) [facility] Other 10-14-2021 Evaluation note* Encounter Date Diagnosis [...] training 6. Follow up in 3 months. [facility] Other Evaluation + Plan note No data available for this section General Surgery [place] Evaluation noteNo InformationNort Jamgle Other Evaluation noteNort Jamgle Other Evaluation noteNort [employer] Other Evaluation note* Diagnosis Onset Date Resolution Status Chalazion of right eye acute Immunization due acute Urinary incontinence [facility] Work Phone: Evaluation note* Diagnosis Onset Date Resolution Status Chalazion of right eye acute Immunization due acute Urinary incontinence acute Diabetes mellitus with hyperglycemia acute Hypertension acute Hypothyroidism acute Lumbar spondylosis acute Secondary hyperparathyroidism [facility] Work Phone: [facility] general Narrative - Reported* Type Description Date [...] History COLONOSCOPY 04/10/2019 Hospitalization History See above [facility] Other [facility] general Narrative - Reported* Type Description Date [...] History COLONOSCOPY 04/10/2019 Hospitalization History See above [facility] Other History general Narrative - ReportedNoVYRE Limited Other Hisuafp general Narrative - ReportedNoVYRE Limited Other Hiskfes general Narrative - Reported* Type Description Date [...] sweat glands Surgical History removal of gallbladder 2002 Surgical History Removal of sigmoid colon 2005 Surgical History Heart cath Surgical History back surgery 2014 Surgical History CARDIAC CATH X2 Surgical History SHOULDER PROCEDURE 2016 Surgical History COLONOSCOPY 08/2017 Surgical History COLONOSCOPY 04/10/2019 Hospitalization History See above Hospitalization History [facility], DUE TO HYPOALBUMINEMIA, CHF 07/10/2023 Hospitalization History CHF 01/2023 Hospitalization History GERD 2022 Hospitalization History DIABETES ISSUES 2022 [facility] Other Hospital Discharge instructions No data available for this section General Surgery [place] Progress note No data available for this section General Surgery [place] Summary Purpose Family History Relationship Condition Age at Onset Recorded Date/T deborah father Unknown Heart disease Unknown family member Family history of other condition Unknow n Not Specified Heart disease Unknown Unknown sister Alzheimer's dementia Unknown Advance Directives Advance Directive Response Recorded Date/ Time Advance Directives No June 11 9:56pm Reason for Referral Reason *Waiting for appt Labs last week. Sees endocrinology for diabetes. Renal function decreased. Diagnosis 1 Chronic kidney disea se, stage 4 (severe) (N18.4) Referral Organization [facility] Referring Provider First Name Shantel Referring Provider Last Name Tenisha Referring Provider [facility] Referred Organization [facility] Referred Provider Cherie Rapp [place] Address [address] [place], [place],[address] Referred Provider Specialty Nephrology Referral Priority Routine General Notes Mariela Kingston 11:35:41 AM >received today, sent P2P Reason *FU 09/13 lumbar p ain Diagnosis 1 Lumbar degenerative disc disease (M51.36) Referral Organization [facility] Referring Provider First Name Shantel Referring Provider Last Name Tenisha Referring Provider Specialty [facility] Referred Organization [facility] Referred Provider Terell Soliz Referred Address [address], [place],[address] Referred Provider Specialty [facility] Referral Priority Routine General Notes Mariela Kingston 03:09:25 PM >received today, waiting for notes to be locked Mariela Kingston 09/06/2023 10:08:29 AM >notes locked, referral faxed Clinical Notes F: [id number] Reason Poorly controlled di abetes Diagnosis 1 Type 2 diabetes maranda itus with hyperglycemia, unspecified whether joint terminal attack controller insulin use (E11.65) Referral Organization [facility] Referring Provider First Name Shantel Referring Provider Last Name Tenisha Referring Provider Specialty [facility] Referred Organization Unknown Facility Referred Provider Joshua Mcconnell Referred Provider Specialty Internal Med icine Referral Priority Routine Reason tremor and memory lo ss - family history of dementia Diagnosis 1 Tremor of both hands (R25.1) Referral Organization [facility] Referring Provider First Name Shantel Referring Provider Last Name Tenisha Referring Provider Specialty [facility] [place] Referred Organization Unknown Facility Referred Provider Emery [...] due Urinary incontinence Chief Complaint Amb Documentation Bump on eyelid Amb Documentation Amb Documentation Amb Documentation Discharge Issues/ Urinary Issues M54.50 medication review Amb Documentation Amb Documentation tbh follow up Reason for Visit Chalazion of right e ye Immunization due Urinary incontinence Diabetes mellitus with hyperglycemia Hypertension Hypothyroidism Lumbar spondylosis Secondary hyperparathyroidism Additional Source Comments INFORMATION SOURCE (unrecogn ized section and content) DATE CREATED AUTHOR 05/10/2018 [facility] DATE CREATED AUTHOR AUTHOR'S ORGANIZ ATION 03/10/2023 [facility] DATE CREATED AUTHOR AUTHOR'S ORGANIZ ATION 02/20/2024 [facility] DATE CREATED AUTHOR AUTHOR'S ORGANIZ ATION 03/10/2024 [facility] DATE CREATED AUTHOR AUTHOR'S ORGANIZ ATION 03/25/2024 [facility] REASON FOR VISIT (unrecogniz [...] End: January 18, 2024 Franchesca Sullivan APRN [employer]ITY [employer]ICER-C Attending Provider Act chiqui Start: January 18, [...] Status Dates Shantel Steven MD Primary Care Provide r, Attending Provider Active Start: February 15, 2024 End: February 15, 2024 Team Status: Inactive Member Role Status Dates Shantel Steven MD Primary Care Provide r, Other Provider Active Start: March 13, 2024 End: March 13, 2024 Eloina Hussein MD Attending Provider , Referring Provider Active Start: March 13, 2024 End: March 13, 2024 Team Status: Inactive Member Role Status Dates Shantel Steven MD Primary Care Provide r, Attending Provider Active Start: March 25, 2024 End: March 25, 2024 Team Status: Active Member Role Status Dates Shantel Steven MD Primary Care Provide r, Attending Provider Active Start: March 26, 2024 Team Status: Active Member Role Status Dates Shantel Steven MD Primary Care Provide r, Attending Provider Active Start: March 27, 2024 Team Status: Active Member Role Status Dates Shantel Steven MD Primary Care Provide r, Attending Provider Active Start: March 28, 2024 Team Status: Active Member Role Status Dates Shantel Steven MD Primary Care Provider Active Start: March 31, 2024 CHENCHO Spicer Attending Provider Active Start : March 31, 2024 Team Status: Active Member Role Status Cecille Steven MD Primary Care Provider Active Start: April 01, 2024 Daniela Montana LPN Attending Provider Active S tart: April 01, 2024 Team Status: Inactive Member Role Status Cecille Steven MD Primary Care Provide r, Attending Provider Active Start: April 03, 2024 End: April 03, 2024 Goals (unrecognized section and content) Goals [...] BE BASED ON THE PRIMARY CLINICAL RECORDS. [employer] provides no warranty or guarantee of the accuracy or completeness of information in this document.
--- NOTE | 2024-04-30 05:05 | ED_ITS ---
HPI - SOB/Dyspnea General Chief Complaint: Shortness of Breath/Dyspnea Stated Complaint: sob Time Seen by Provider: 04/30/24 05:02 Source: patient and family Mode of arrival: Wheelchair History of Present Illness HPI Narrative: SOB and weak. Past history of A. fib, CHF and diabetes. Admitted last month for CHF with preserved EF 55%. Now presents complaining of weakness and short of breath. seen yesterday by PCP and noted to have hypotension and advised to decreased lasix dose. This AM presents complaining of feeling weak an d short of breath. RA pulse ox 98%. Denies any chest pain or nausea. No fever or cough Related Data Home Medications ?Medication ?Instructions ?Recorded ?Confirmed alprazolam 0.25 mg tablet 0.25 mg PO TID PRN anxiety 04/25/23 03/26/24 atorvastatin 20 mg tablet 20 mg PO DAILY 04/25/23 03/26/24 biotin 5 mg capsule 5 mg PO DAILY 04/25/23 03/26/24 cholecalciferol (vitamin D3) 125 5,000 unit PO DAILY 04/25/23 03/26/24 mcg (5,000 unit) capsule diltiazem HCl 120 mg 120 mg PO Q24H 04/25/23 03/26/24 capsule,extended release 24 hr famotidine 20 mg tablet 20 mg PO BEDTIME PRN heartburn 04/25/23 03/26/24 insulin glargine 100 unit/mL (3 35 unit subcut BEDTIME 04/25/23 03/26/24 mL) subcutaneous pen (Lantus Solostar U-100 Insulin) levothyroxine 112 mcg tablet 112 mcg PO DAILY 04/25/23 03/26/24 lisinopril 20 mg tablet 20 mg PO DAILY 04/25/23 03/26/24 metoprolol tartrate 100 mg tablet 150 mg PO BID 04/25/23 03/26/24 oxycodone-acetaminophen 5 mg-325 1 tab PO BID PRN pain 04/25/23 03/26/24 mg tablet rivaroxaban 20 mg tablet (Xarelto) 20 mg PO QPM 04/25/23 03/26/24 selenium 200 mcg capsule 200 mcg PO DAILY 04/25/23 03/26/24 dapagliflozin propanediol 10 mg 10 mg PO DAILY 07/08/23 03/26/24 tablet (Farxiga) insulin aspar prot-insulin aspart 35 unit subcut DAILY 07/08/23 03/26/24 100 unit/mL (70-30) subcutaneous pen (Novolog Mix 70-30FlexPen U-100) sucralfate 1 gram tablet (Carafate) 1 g PO BID 07/08/23 03/26/24 Previous Rx's ?Medication ?Instructions ?Recorded furosemide 40 mg tablet 40 mg PO BID #60 tabs 03/28/24 spironolactone 50 mg tablet 50 mg PO DAILY #30 tabs 03/28/24 Allergies Allergy/AdvReac Type Severity Reaction Status Date / Time Sulfa (Sulfonamide Allergy Rash Verified 03/26/24 05:10 Antibiotics) Review of Systems ROS Status of ROS 10 or more systems reviewed and unremark able except as noted in history and below [facility] Medical History (Updated 04/30/24 @ 06:33 by Paco Bryant MD) CKD stage 3a, GFR 45-59 ml/min ?N18.31 - Chronic kidney disease, stage 3a (ICD-10) Diabetes mellitus with hyperglycemia, with long-term current use of insulin ?E11.65 - Type 2 diabetes mellitus with hyperglycemia (ICD-10) ?Z79.4 - assisted (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 insulin (ICD-10) Paroxysmal atrial fibrillation ?I48.0 - Paroxysmal atrial fibrillation (ICD-10) Hypothyroidism (acquired) ?E03.9 - Hypothyroidism, unspecified (ICD-10) Hypertension ?I10 - Essential (primary) hypertension (ICD-10) Hypokalemia ?E87.6 - Hypokalemia (ICD-10) Hypertensive urgency ?I16.0 - Hypertensive urgency (ICD-10) CHF (congestive heart failure) ?I50.9 - Heart failure, unspecified (ICD-10) Lymph edema ?I89.0 - Lymphedema, not elsewhere classified (ICD-10) Cataracts, bilateral ?H26.9 - Unspecified cataract (ICD-10) Breast cancer ?C50.919 - Malignant neoplasm of unspecified site of unspecified female breast (ICD-10) Lumbar compression fracture ?S32.000A - Wedge compression fracture of unspecified lumbar vertebra, initial encounter for closed fracture (ICD-10) Atrial fibrillation ?I48.91 - Unspecified atrial fibrillation (ICD-10) Obesity ?E66.9 - Obesity, unspecified (ICD-10) Diabetes mellitus ?E11.9 - Type 2 diabetes mellitus without complications (ICD-10) Hyperglycemia ?R73.9 - Hyperglycemia, unspecified (ICD-10) Surgical History (Updated 03/26/24 @ 06:36 by Brooke Conrad) H/O bilateral mastectomy ?Z90.13 - Acquired absence of bilateral breasts and nipples (ICD-10) Family History (Updated 07/08/23 @ 04:02 by Mira Addison) Other Family history of CHF (congestive heart failure) Family history of cancer Family history of diabetes mellitus Family history of hypertension H/O mastectomy Social History (Updated 03/26/24 @ 06:38 by Brooke Conrad) Within the past year, how often did you have a drink containing alcohol: never Within the past year, how often did you have six or more drinks on one occasion: never Score interpretation: A score less than 3 is consistent with normal alcohol consumption. 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 Highest level of school completed/degree received: high school graduate Do you want help with school or training: No Are you now , , , , never or living with a partner: In a typical week, how many times do you talk on the telephone with family, friends, or neighbors: 3 or more times per week How often do you get together with friends or relatives: 3 or more times per week How often do you attend religion or christianity services: never Do you belong to any clubs or organizations such as religion groups unions, fraternal or athletic groups, or school groups: no Total score: 2 Score interpretation: A score of greater than or equal to 2 indicates the lowest level of social isolation. Little interest or pleasure in doing things: not at all Feeling down, depressed, or hopeless: not at all Feel stressed/tense/nervous/anxious/difficulty sleeping: not at all Due to disability, difficulty making decisions: No Do you think of yourself as: straight/heterosexual Gender Identity: female Exam Constitutional Vital Signs, click to edit/add: Last Vital Signs Temp 97.9 F 04/30/24 04:45 Pulse 58 L 04/30/24 06:10 Resp 14 04/30/24 06:10 BP 91/47 L 04/30/24 06:01 Pulse Ox 98 04/30/24 06:10 O2 Del Method Room Air 04/30/24 04:45 Common normals: no apparent distress, average body habitus, oriented x3, no limitations, healthy appearing, alert and well nourished [facility] Common normals: normocephalic and head/scalp atraumatic Eye Common normals: EOMs intact bilaterally and conjunctivae normal Respiratory Common normals: normal respiratory effort, no retractions, no use of accessory muscles and clear to auscultation bilaterally Cardio Common normals: regular rate, regular rhythm, S1 normal heart sound and S2 normal heart sound GI Common normals: Normal to inspection, nondistended, normoactive bowel sounds present, soft to palpation and non-tender Extremity Common normals: normal to inspection and full ROM Neuro Common normals: oriented x3, CN's II-XII intact bilaterally, moves all extremities and no focal motor deficits Psych Appearance: grossly normal Course Vital Signs Vital signs: Vital Signs Temperature 97.9 F 04/30/24 04:45 Pulse Rate 61 04/30/24 04:45 Respiratory Rate 16 04/30/24 04:45 Blood Pressure 150/64 H 04/30/24 04:45 Pulse Oximetry 96 04/30/24 04:45 Oxygen Delivery Method Room Air 04/30/24 04:45 Temperature 97.9 F 04/30/24 04:45 Pulse Rate 58 L 04/30/24 06:10 Respiratory Rate 14 04/30/24 06:10 Blood Pressure 91/47 L 04/30/24 06:01 Pulse Oximetry 98 04/30/24 06:10 Oxygen Delivery Method Room Air 04/30/24 04:45 MDM - SOB/Dyspnea MDM Narrative Medical decision making narrative: patient arrives with complaint of dyspnea and weakness. Exam unremarkable and chest clear to auscultation. No fever. labs revealed acute renal failure with elevated BUN/ creat and Normal BNP and troponin. EKG with normal sinus and no acute changes. Discussed with hospitalist who request IV LR at 75hr and tele bed. Patient and her informed Lab Data Labs: Lab Results 04/30/24 04/30/24 04/30/24 Range/Units 04:55 04:58 05:30 WBC 7.5 (4.0-11.0) 10^3/uL RBC 4.22 (4.20-5.40) 10^6/uL Hgb 12.5 (12.0-16.0) g/dL Hct 38.6 (36.0-48.0) % MCV 91.5 (81.0-99.0) fL MCH 29.6 (26.7-34.0) pg MCHC 32.4 (29.9-35.2) g/dL RDW 13.5 (11.0-15.0) % Plt Count 221 (150-450) 10^3/uL MPV 12.2 (9.5-13.5) fL Neut % (Auto) 58.8 (43.0-75.0) % Lymph % (Auto) 27.8 (20.5-60.0) % Gregory % (Auto) 10.0 (1.7-12.0) % Eos % (Auto) 2.4 (0.9-7.0) % Baso % (Auto) 0.9 (0.2-2.0) % Neut # (Auto) 4.4 (1.4-6.5) 10^3/uL Lymph # (Auto) 2.1 (1.2-3.8) 10^3/uL Gregory # (Auto) 0.8 (0.3-0.8) 10^3/uL Eos # (Auto) 0.2 (0.0-0.7) 10^3/uL Baso # (Auto) 0.1 (0.0-0.1) 10^3/uL Abs Immat Gran (auto) 0.01 (0.00-0.03) 10^3/uL Imm/Tot Granulo (auto) 0.1 (0.0-0.5) % D-Dimer 0.24 (<=0.59) mg/L FEU Sodium 133 L (136-145) mmol/L Potassium 5.3 H (3.5-5.1) mmol/L Chloride 100 (98-107) mmol/L Carbon Dioxide 24.4 (21.0-32.0) mmol/L Anion Gap 13.9 BUN 99.0 H* (7.0-18.0) mg/dL Creatinine 3.02 H (0.55-1.02) mg/dL Est GFR ( Amer) 18 L (>=60) Est GFR (Non-Af Amer) 15 L (>=60) BUN/Creatinine Ratio 32.8 Glucose 271 H (74-106) mg/dL Calcium 9.0 (8.5-10.1) mg/dL Troponin I High Sens 12.6 (4.0-51.3) pg/mL NT-Pro-B Natriuret Pep 1485.0 (<=1800.0) pg/mL POC Glucose 275 H (74-106) mg/dL Discharge Plan Discharge Chief Complaint: Shortness of Breath/Dyspnea Clinical Impression: Acute renal failure (ARF), Acute dehydration Patient Disposition: Admitted as Observation
--- NOTE | 2024-04-30 05:06 | XR_ITS ---
The [address] [address] Patient Name: JOE CALL MRN: [id number] date: 1945 Sex: F Assigned Patient Location: ER Current Patient Location: ER Accession/Order Number: [id number] Exam Date: 04/30/2024 05:15 Report Date: 04/30/2024 05:31 At the request of: ANALISA WHYTE Procedure: XR chest 1V EXAM: XR chest 1V HISTORY: Dyspnea COMPARISON: Chest radiograph dated 03/26/2024. TECHNIQUE: One view of the chest was obtained. FINDINGS: The cardiac silhouette is mildly enlarged though stable in size. Aortic atherosclerotic disease is seen. Mitral annular calcifications are noted. There is no significant pneumothorax or pleural effusion. There are mild left basilar opacities. No acute osseous abnormality is seen. XR/XR chest 1V IMPRESSION: 1. Stable mildly enlarged cardiac silhouette with mild left basilar opacities that could represent atelectasis, aspiration changes, and/or pneumonia. Electronically authenticated by: Miranda ALVAREZ Date: 04/30/2024 05:31
[2024-04-30 05:12] LABS: Basophils Absolute Auto 0.1 10^3/uL (0.0-0.1); Basophils Percent Auto 0.9 % (0.2-2.0); Eosinophils Absolute Auto 0.2 10^3/uL (0.0-0.7); Eosinophils Percent Auto 2.4 % (0.9-7.0); Hematocrit 38.6 % (36.0-48.0); Hemoglobin 12.5 g/dL (12.0-16.0); Immature Granulocytes Abs Auto 0.01 10^3/uL (0.00-0.03); Immature Granulocytes Pct Auto 0.1 % (0.0-0.5); Lymphocytes Absolute Auto 2.1 10^3/uL (1.2-3.8); Lymphocytes Percent Auto 27.8 % (20.5-60.0); Mean Corpuscular HGB Conc 32.4 g/dL (29.9-35.2); Mean Corpuscular Hemoglobin 29.6 pg (26.7-34.0); Mean Corpuscular Volume 91.5 fL (81.0-99.0); Mean Platelet Volume 12.2 fL (9.5-13.5); Monocytes Absolute Auto 0.8 10^3/uL (0.3-0.8); Neutrophils Absolute Auto 4.4 10^3/uL (1.4-6.5); Neutrophils Percent Auto 58.8 % (43.0-75.0); Platelet Count 221 10^3/uL (150-450); Red Blood Count 4.22 10^6/uL (4.20-5.40); Red Cell Distribution Width 13.5 % (11.0-15.0); White Blood Count 7.5 10^3/uL (4.0-11.0)
[2024-04-30 05:56] LABS: D Dimer 0.24 mg/L FEU (<=0.59)
[2024-04-30 06:00] LABS: Anion Gap 13.9; BUN Creatinine Ratio 32.8; Carbon Dioxide 24.4 mmol/L (21.0-32.0); Chloride 100 mmol/L (98-107); Estimated GFR (African America 18 (>=60); Estimated GFR (Non-African Ame 15 (>=60); Glucose 271 mg/dL (74-106); Potassium 5.3 mmol/L (3.5-5.1); Sodium 133 mmol/L (136-145); Troponin I High Sensitivity 12.6 pg/mL (4.0-51.3)
[2024-04-30] MEDS: LACTATED RINGER'S SOLUTION 1,000 ML 75 ML IV ×2 (06:32→21:27)
--- OUTSIDE RECORDS SUMMARY | 2024-04-30 06:50 | XMS_ITS ---
Patient Summarization (C-CDA 2.1 CCD) Created on: April 30, 2024 Joe Call : 1945 Sex: Female Author Organization Sample organization Care Team Providers Care Keg Raiser Name Role Phone UNKNOWN, PROVIDER Unavailable Unavailable [...] Unavailable DR SHANTEL STEVEN Consulting Unavailable Jaleesa Vaenssa Unavailable ENZO BARNES Attending Unavailable RICA MEDRANO Attending Unavailable RICA MEDRANO Attending Unavailable EZNO BARNES Attending Unavailable MD Shantel Steven Primary Care Provider [phone] MD Shantel Steven Other Provider MD Eloina Hussein Attending Provider [phone] MD Eloina Hussein Referring Provider [phone] Shantel Steven Consulting Unavailable Shantel Steven Primary Care Unavailable Eloina Hussein Referring Unavailable Eloina Hussein Attending Unavailable Eloina Hussein Admitting Unavailable Allergies Allergy Classification Reported Allergen(s) Allergy Type Date of Onset Reaction(s) Facility (1 source) Iodine (And Iodine Containting Drugs) Drug allergy (disorder) 03-04-20 12 [facility] (20 sources) Shellfish; 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: [Shellfish] Food allergy (disorder) 03-04-20 12 rash, Eruption of skin (disorder) [facility] (7 sources) Sulfonamides (Antibiotic); 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: [SULFA (SULFONAMIDE ANTIBIOTICS)] Drug allergy (disorder) 03-04-20 12 Rash [facility] (20 sources) Sulfacetamide Drug Allergy 02-15-20 24 diarrhea [facility] (13 sources) Contrast media; 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: [contrast media (iodine-based)] Drug allergy Unknown (qualifier value) [facility] [place] (2 sources) Sulfonamides (Antibiotic); 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: [sulfa drugs] Drug allergy Diarrhea (finding) [facility] (2 sources) Glucosamine Drug Allergy [facility] (2 sources) Iodine (And Iodine Containting Drugs) Drug allergy (disorder) 08-09-20 17 [facility] (11 sources) Contrast media Propensity to adverse reactions 11-18-[address] DYE [employer] Other (12 sources) Iodine; 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: [IODINE] Drug Allergy 10-30-20 14 Unknown [facility] (11 sources) Substance with sulfonamide structure and antibacterial mechanism of action (substance) Drug allergy Unknown Novavax AB [facility] [employer] Other (11 sources) Dyes Propensity to adverse reactions Comment:CT Dyes,Dyes,IVP Dyes [facility] [employer] Other (5 sources) Shellfish; 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: [SHELLFISH DERIVED] Allergy to substance 10-30-20 14 [facility] (5 sources) Iodinated Contrast Media; 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: [IODINATED CONTRAST MEDIA] Allergy to substance 02-15-20 [facility] (1 source) Chocolate; 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: [CHOCOLATE FLAVOR] Propensity to adverse reactions to drug (disorder) 01-17-20 [facility] (1 source) Sulfacetamide Drug Allergy 02-15-20 [facility] (1 source) Sulfonamides (Antibiotic) Drug allergy (disorder) 02-15-20 [facility] Encounters Encounter Date Encounter Type Care Provider Facility Start: 04-03-2024 End: 04-03-2024 ambulatory MD Shantel Steven Work Phone: [facility] Work Phone: Start: 04-03-2024 End: 04-03-2024 Patient encounter procedure MD Shantel Steven Work Phone: [facility] Work Phone: Start: 04-01-2024 Non-patient / Non-visit MD Alessia Steven Work Phone: [facility] Work Phone: Start: 03-31-2024 Non-patient / Non-visit MD Alessia Steven Work Phone: [facility] Work Phone: Start: 03-28-2024 Non-patient / Non-visit MD Alessia Steven Work Phone: [facility] Work Phone: Start: 03-27-2024 Non-patient / Non-visit MD Alessia Steven Work Phone: [facility] Work Phone: Start: 03-26-2024 Non-patient / Non-visit MD Alessia Steven Work Phone: [facility] Work Phone: Start: 03-25-2024 End: 03-25-2024 Patient encounter procedure MD Shantel Steven Work Phone: [facility] Work Phone: Start: 03-13-2024 End: 03-13-2024 ambulatory MD Shantel Steven Work Phone: [facility] Work Phone: Start: 03-13-2024 End: 03-13-2024 Patient encounter procedure MD Shantel Steven Work Phone: [facility] [address] Work Phone: Start: 03-07-2024 End: 03-07-2024 ambulatory [facility] Start: 02-19-2024 ambulatory Facility:[facility] Start: 02-15-2024 End: 02-15-2024 ambulatory [facility] Work Phone: Start: 02-15-2024 End: 02-15-2024 Patient encounter procedure [facility] Work Phone: Start: 01-29-2024 Non-patient / Non-visit [facility] Work Phone: Start: 01-24-2024 Non-patient / Non-visit [facility] Work Phone: Start: 01-22-2024 Non-patient / Non-visit [facility] Work Phone: Start: 01-18-2024 End: 01-18-2024 Patient encounter procedure [facility] Work Phone: Start: 01-15-2024 Non-patient / Non-visit [facility] Work Phone: Start: 01-04-2024 Non-patient / Non-visit [facility] Physician [facility] Work Phone: Start: 12-18-2023 End: 12-18-2023 ambulatory Shantel Steven Other [employer] Other Start: 12-18-2023 Telephone encounter Shantel Steven [facility] Start: 11-19-2023 End: 11-19-2023 ambulatory Shantel Steven Other [employer] Other Start: 11-19-2023 Telephone encounter Shantel Steven [facility] Start: 10-23-2023 End: 10-23-2023 ambulatory Azghassan Kochs Other [employer] Other Start: 10-23-2023 Office outpatient ne w 30 minutes Aziz Bakhous [facility] Start: 10-22-2023 End: 10-22-2023 ambulatory Shantel Steven Other [employer] Other Start: 10-22-2023 Telephone encounter Shantel Steven [facility] Start: 10-18-2023 End: 10-18-2023 ambulatory Shantel Steven Other [employer] Other Start: 10-18-2023 Office outpatient vi sit 15 minutes Shantel Steven [facility] Start: 09-07-2023 End: 09-07-2023 ambulatory Shantel Steven Other [employer] Other Start: 09-07-2023 Telephone encounter Shantel Steven [facility] Start: 09-04-2023 End: 09-04-2023 ambulatory Shantel Steven Other [employer] Other Start: 09-04-2023 Office outpatient vi sit 25 minutes Shantel Steven [facility] Start: 08-23-2023 End: 08-23-2023 ambulatory Shantel Steven Other [employer] Other Start: 08-23-2023 Telephone encounter Shantel Steven [facility] Start: 08-17-2023 End: 08-17-2023 ambulatory [facility] Start: 07-23-2023 Telephone encounter Shantel Steven [facility] Start: 07-23-2023 End: 07-23-2023 ambulatory [facility] [employer] Other Start: 07-17-2023 End: 07-17-2023 ambulatory Shantel Steven Other [employer] Other Start: 07-17-2023 Office outpatient vi sit 25 minutes Shantel Steven [facility] Start: 05-30-2023 End: 05-30-2023 ambulatory Shantel Steven Other [employer] Other Start: 05-30-2023 Telephone encounter Shantel Steven [facility] Start: 05-22-2023 End: 05-22-2023 ambulatory Shantel Steven Other [employer] Other Start: 05-22-2023 Telephone encounter Shantel Steven [facility] Start: 05-16-2023 End: 05-16-2023 ambulatory Shantel Steven Other [employer] Other Start: 05-16-2023 Telephone encounter Shantel Steven [facility] Start: 05-07-2023 End: 05-07-2023 ambulatory Shantel Steven Other [employer] Other Start: 05-07-2023 Telephone encounter Shantel Steven [facility] Start: 04-30-2023 End: 04-30-2023 ambulatory Shantel Steven Other [employer] Other Start: 04-30-2023 Office outpatient vi sit 25 minutes Shantel Steven [facility] Start: 04-25-2023 End: 04-25-2023 ambulatory RICA MEDRANO [employer] Other Start: 04-25-2023 Telephone encounter Shantel Steven [facility] Start: 04-12-2023 End: 04-12-2023 ambulatory Shantel Steven Other [employer] Other Start: 04-12-2023 Telephone encounter Shantel Steven [facility] Start: 03-09-2023 End: 03-09-2023 ambulatory Shantel Steven Other [employer] Other Start: 03-09-2023 Office outpatient vi sit 15 minutes Shantel Steven [facility] Start: 03-07-2023 End: 03-07-2023 ambulatory Shantel Steven Other [employer] Other Start: 03-07-2023 Telephone encounter Shantel Steven [facility] Start: 03-06-2023 End: 03-06-[address] SHANTEL STEVEN Facility:[facility] Start: 03-05-2023 End: 03-05-2023 ambulatory Shantel Steven Other [employer] Other Start: 03-05-2023 Telephone encounter Shantel Steven [facility] Start: 02-26-2023 End: 02-26-2023 ambulatory Shantel Steven Other [employer] Other Start: 02-26-2023 Telephone encounter Shantel Steven [facility] Start: 02-24-2023 End: 02-24-[address] SHANTEL STEVEN Facility:[facility] Start: 02-23-2023 End: 02-23-2023 ambulatory Shantel Steven Other [employer] Other Start: 02-23-2023 Telephone encounter Shantel Steven [facility] Start: 02-20-2023 End: 02-20-2023 ambulatory Shantel Steven Other [employer] Other Start: 02-20-2023 Transitional care luz misha [facility] 14 day discharge Shantel Steven [facility] Start: 02-16-2023 End: 02-16-2023 ambulatory Shantel Steven Other [employer] Other Start: 02-16-2023 Telephone encounter Shantel Steven [facility] Start: 02-13-2023 End: 02-14-[address] SHANTEL STEVEN Facility:[facility] Start: 02-02-2023 End: 02-02-2023 ambulatory Shantel Steven Other [employer] Other Start: 02-02-2023 Telephone encounter Shantel Steven [facility] Start: 01-16-2023 End: 01-17-[address] DOCTOR CARMONA Facility:[facility] Start: 01-05-2023 End: 01-05-2023 ambulatory BIN ROJAS Facility:[facility] Start: 01-01-2023 End: 01-02-2023 ambulatory ANALISA WHYTE Facility:[facility] Start: 11-29-2022 End: 11-29-2022 ambulatory Shantel Steven Other [employer] Other Start: 11-29-2022 Telephone encounter Shantel Steven [facility] Start: 11-27-2022 End: 11-27-2022 ambulatory Shantel Steven Other [employer] Other Start: 11-27-2022 Telephone encounter Shantel Tenisha [facility] Start: 11-24-2022 End: 11-24-2022 ambulatory Shantel Steven Other [employer] Other Start: 11-24-2022 Telephone encounter Shantel Steven [facility] Start: 12-26-2022 ambulatory YAMEL MCCRACKEN Facility :[facility] Start: 09-15-2022 End: 09-16-[address] SHANTEL STEVEN Facility:[facility] Start: 08-04-2022 End: 08-04-2022 Patient encounter procedure Bin SORENSON General Surgery Lauren/Adenike Becker Start: 05-02-2022 End: 05-02-[address] SHANTEL STEVEN Facility:[facility] Start: 08-25-2021 Office outpatient ne w 45 minutes Akbar Cui II [facility] Start: 08-09-2017 End: 08-12-2017 Ambulatory PROVIDER UNKNOWN Facility:[facility] Medical Equipment Procedure Code Equipment Code Equipment Origin al Text Equipment Identifier Dates Blood Sugar Diagnostic (True Metrix Glucose Test Strip) strip Start: 03-31-2024 Pen Needle, Diab etic (Comfort Ez Pen Riner) 33 gauge x 5/32 needle Start: 03-25-2024 Blood Sugar Diagnostic (True Metrix Glucose Test Strip) strip Start: 03-31-2024 End: 03-31-2024 Immunizations Immunization Date Immunization Notes Care Provider Fa aga 01-18-2024 Pneumococcal Conjugate Vaccine, 20 valent [facility] 09-04-2023 influenza, high dose seasonal, preservative-free Shantel Steven Other [employer] Other 09-04-2023 influenza virus vaccine, unspecified formulation [facility] 02-04-2021 COVID-19 mRNA, Comirnaty (Pfizer) [facility] 01-21-2021 COVID-19 mRNA, Comirnaty (Pfizer) [facility] 10-09-2018 influenza virus vaccine, split virus (incl. purified surface antigen) Shantel Steven Other [employer] Other 10-09-2018 influenza virus vaccine, unspecified formulation [facility] NEGATED: Highlighted row has not occurred!08-21-2019 influenza virus vaccine, split virus (incl. purified surface antigen) Shantel Steven Other [employer] Other Medications Current Medications Medication Drug Class(es) [...] 17, 2024 1:00am take 1 capsule by [facility] every twenty-four hours Vitamin D3 125 MCG (5000 UT) 1 capsule Orally Once a day Active take 1 capsule by mo [facility] every twenty-four hours Vitamin D3 25 MCG (1000 UT) 1 capsule Orally Once a day Active cholestyramine resin 4000 mg powder for oral suspension (1 source) Bile Acid Sequestrant Start: 03-07-2021 Questran 4 g/9 g oral powder = 1 packet(s), Oral, Daily, # 30 EA, Refills(s) 11, Pharmacy: [id number], 165.1, cm, 03/07/21 13:49:00 EDT, Height/Length [...] by joesph th every twenty-four hours nystatin 728852 unt/ml topical cream (19 sources) Polyene Antifungal Start: 01-17-2024 Nystatin Ac tive 1 APPLIC TOPICAL Twice daily January 17, 2024 1:00am Nystatin 932041 UNIT/GM 1 application Externally Twice a day for 10 days Active Nystatin 153651 UNIT/GM 1 application Externally Twice a day [...] capsule Orally Once a day Active Vitamins A,C,P-Fwqm-Fynxvo (Preservision Areds) 4,296 mcg-226 mg-90 mg capsule (3 sources) Start: 01-17-2024 take 1 capsule by mouth twice daily Vitamins A,C,H-Efgg-Ppzvoq (Preservision Areds) 4,296 mcg-226 mg-90 mg capsule [...] Active Start: 07-17-2023 take 1 tablet by [facility] twice daily oxyCODONE-Acetaminophen 5-325 MG 1 table t Orally two times daily for 30 days Jul, Active Start: 05-22-2023 Start: 04-03-2023 take 1 tablet by [facility] twice daily oxyCODONE-Acetaminophen 5-325 MG 1 table t Orally two times daily for 30 days March, Active Start: 02-02-2023 take 1 tablet by [facility] twice daily oxyCODONE-Acetaminophen 5-325 MG 1 table t Orally two times daily for 30 days Jan, Active Start: 11-30-2022 take 1 tablet by [facility] twice daily oxyCODONE-Acetaminophen 5-325 MG 1 table t Orally two times daily for 30 days Nov, Active Start: 07-27-2022 take 1 tablet by [facility] twice daily acetaminophen-oxycodone 325 mg-2.5 mg or al tablet 1 tab(s), Oral, BID, Refill(s) 0 Start Date: 07/27/22 Status: Ordered Start: 06-12-2021 End: 06-19-2021 take 1 tablet by mouth twice daily Oxycodone-Acetaminophen Discontinued 1 T AB PO Twice daily June 12, 2021 12:00am June 19, 2021 3:13am [id number] 200 actuat albuterol 0.09 mg/actuat metered dose [...] bedtime Orally Once a day Not-Taking amylase 512314 unt / lipase 26545 unt / protease 10410 unt delayed release oral capsule (4 sources) Start: End: Fpbzxd-Koqkgwpc-Zme lase (Creon) 24,000-76,000 -120,000 unit capsule,delayed release(DR/EC) Discontinued 1 - 2 CAP PO 1-2 TIMES DAILY June 11, 2021 12:00am June 19, 2021 3:12am Start: 05-10-2021 Creon 24,000 u nits oral delayed release capsule See Instructions, take 3 caps with each meal and 2 caps with each snack., # 390 caplet(s), Refills(s) 0, Pharmacy: [id number], 165.1, cm, 04/18/21 13:02:00 EDT, Height/Length Dosing, 116.4, kg, 04/18/21 13:02:00 EDT, Weight Dosing Start Date: 05/10/21 Status: Ordered biotin 5 mg oral capsule (7 sources) Start: 01-17-2024 End: 04-03-2024 take 5 mg by mouth once daily Biotin Discontinued 5 MG PO Daily January 17, 2024 1:00am April 03, 2024 11:46am take 1 capsule by mo [facility] every twenty-four hours Biotin 5 MG 1 [...] tablet by joesph th every eight hours Mobile 6-Vcp-Qpm-Fish Oil (Fish Oil) 1,000 mg (120 mg-180 mg) capsule (3 sources) Start: 01-17-2024 End: 04-03-2024 take 1 capsule by mouth once daily Mobile 0-Stb-Cws-Fish Oil (Fish Oil) 1,000 mg (120 mg-180 mg) capsule Discontinued 1 CAP PO Daily January 17, 2024 1:00am April 03, 2024 11:49am Start: 01-17-2024 take 1 capsule by mo vth once daily Mobile 5-Hxn-Nuh-Fish Oil (Fish Oil) 1,000 mg (120 mg-180 [...] 5:18pm Payers Date Payer Category Payer Self-pay [id number] 1958 Medicare [id number] [id number]. [id number] 1958 Self-pay [id number] 1945 [facility] [id number] 2.16.84 [id number] 1945 Unknown [id number] 2.16.84 [id number] 1945 Unknown [id number] 2.16.84 [id number] 1945 Unknown [id number] 2.16.84 [id number] 1945 Unknown [id number] 2.16.84 [id number] 1945 Unknown [id number] 2.16.84 [id number] 1945 Unknown [id number] 2.16.84 [id number] 1945 Unknown [id number] 2.16.84 [id number] 1945 Unknown [id number] 2.16.84 [id number] Unknown Unknown [id number] 2.16.8 [id number] Plan of Treatment Date Care Activity Detail Author Start: 02-15-2024 Patient referral [facility] Work Phone: Comprehensive metabo lic 2000 panel - Serum or Plasma [facility] Microalbumin [Mass/v olume] in Urine [facility] Patient referral [facility] Work Phone: [facility] Problems Active Problems Problem Classification Problem [...] Coronary arteriosclerosis; 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: [Atherosclerotic heart disease of [place] coronary artery without angina pectoris] Onset: 3 [...] sources) Long-term current use of insulin; 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: [MCFP (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 insulin] 01-17-2024 Episodic Other aftercare (1 source) Other retirement (current) drug therapy; 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: [OTH SKILLED NURSING CURRENT DRUG THERAPY] Onset: 3 Episodic Other aftercare (1 source) 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; 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: [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 CURRNT USE 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] Onset: 3 Episodic Other [...] Da te Episodic/Chronic Other aftercare (4 sources) MCFP (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 insulin; 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: [SKILLED NURSING CURRENT USE OF INSULIN] Onset: 3 Episodic [...] Basophils (Bld) [#/Vol] 0.1 10 3/uL 0.0-0.1 [facility] Basophils/100 WBC Auto (Bld) on 03-28-2024 Basophils/100 WBC (Bld) 0.9 % 0.2-2.0 [facility] Eosinophils/100 WBC Auto (Bl d)on 03-28-2024 Eosinophils/100 WBC (Bld) 1.7 % 0.9-7.0 [facility] Erythrocyte distribution wid th Auto (RBC) [Ratio]on 03-28-2024 Erythrocyte distribution width (RBC) [Ratio] 14.2 % 11.0-15.0 [facility] Hematocrit Auto (Bld) [Volum e fraction]on 03-28-2024 Hematocrit (Bld) [Volume fraction] 40.0 % 36.0-48.0 [facility] Hemoglobin [Mass/volume] in Bloodon 03-28-2024 Hemoglobin (Bld) [Mass/Vol] 12.6 g/dL 12.0-16.0 [facility] Laboratory - Hematology and Cell countson 03-28-2024 Immature granulocytes/100 WBC (Bld) 0.4 % 0.0-0.5 [facility] Leukocytes [#/volume] correc gali for nucleated erythrocytes in Blood by Automated counon 03-28-2024 WBC corrected for nucl RBC Auto (Bld) [#/Vol] 8.4 10 3/uL 4.0-11.0 [facility] Lymphocytes Auto (Bld) [#/Vo l]on 03-28-2024 Lymphocytes (Bld) [#/Vol] 1.8 10 3/uL 1.2-3.8 [facility] Lymphocytes/100 WBC Auto (Bl d)on 03-28-2024 Lymphocytes/100 WBC (Bld) 21.4 % 20.5-60.0 [facility] MCH Auto (RBC) [Entitic mass ]on 03-28-2024 MCH (RBC) [Entitic mass] 29.0 pg 26.7-34.0 [facility] MCHC Auto (RBC) [Mass/Vol]on 03-28-2024 MCHC (RBC) [Mass/Vol] 31.5 g/dL 29.9-35.2 [facility] MCV Auto (RBC) [Entitic vol] on 03-28-2024 MCV (RBC) [Entitic vol] 92.0 fL 81.0-99.0 [facility] Monocytes Auto (Bld) [#/Vol] on 03-28-2024 Monocytes (Bld) [#/Vol] 0.8 10 3/uL 0.3-0.8 [facility] Monocytes/100 WBC Auto (Bld) on 03-28-2024 Monocytes/100 WBC (Bld) 9.7 % 1.7-12.0 [facility] Neutrophils Auto (Bld) [#/Vo l]on 03-28-2024 Neutrophils (Bld) [#/Vol] 5.6 10 3/uL 1.4-6.5 [facility] Neutrophils/100 WBC Auto (Bl d)on 03-28-2024 Neutrophils/100 WBC (Bld) 65.9 % 43.0-75.0 [facility] No Panel Informationon 03-28 Eosinophils # (Auto) 0.1 10 3/uL 0.0-0.7 [facility] Immature Granulocyte # (Auto) 0.03 10 3/uL 0.00-0.03 [facility] Platelet mean volume Auto (B ld) [Entitic vol]on 03-28-2024 Platelet mean volume (Bld) [Entitic vol] 10.5 fL 9.5-13.5 [facility] Platelets Auto (Bld) [#/Vol] on 03-28-2024 Platelets (Bld) [#/Vol] 197 10 3/uL 150-450 [facility] RBC Auto (Bld) [#/Vol]on RBC (Bld) [#/Vol] 4.35 10 6/uL 4.20-5.[address] [facility] Basophils Auto (Bld) [#/Vol] on 03-27-2024 Basophils (Bld) [#/Vol] 0.1 10 3/uL 0.0-0.1 [facility] Basophils/100 WBC Auto (Bld) on 03-27-2024 Basophils/100 WBC (Bld) 0.8 % 0.2-2.0 [facility] Eosinophils/100 WBC Auto (Bl d)on 03-27-2024 Eosinophils/100 WBC (Bld) 1.1 % 0.9-7.0 [facility] Erythrocyte distribution wid th Auto (RBC) [Ratio]on 03-27-2024 Erythrocyte distribution width (RBC) [Ratio] 14.2 % 11.0-15.0 [facility] Glucose mean value [Mass/vol ume] in Blood Estimated from glycated hemoglobinon 03-27-2024 Average glucose Estimated from glycated hemoglobin (Bld) [Mass/Vol] 275 mg/dL [facility] Hematocrit Auto (Bld) [Volum e fraction]on 03-27-2024 Hematocrit (Bld) [Volume fraction] 37.4 % 36.0-48.0 [facility] Hemoglobin [Mass/volume] in Bloodon 03-27-2024 Hemoglobin (Bld) [Mass/Vol] 12.1 g/dL 12.0-16.0 [facility] Laboratory - Hematology and Cell countson 03-27-2024 HbA1c (Bld) [Mass fraction] 11.2 % 4.5-6.2 [facility] Comment on above: ADA RECOMMENDED LIMI T 4.0 - 6.0ADA THERAPEUTIC TARGET < 7.0ACTION SUGGESTED> 7.0 Immature granulocytes/100 WBC (Bld) 0.3 % 0.0-0.5 [facility] Leukocytes [#/volume] correc gali for nucleated erythrocytes in Blood by Automated counon 03-27-2024 WBC corrected for nucl RBC Auto (Bld) [#/Vol] 9.7 10 3/uL 4.0-11.0 [facility] Lymphocytes Auto (Bld) [#/Vo l]on 03-27-2024 Lymphocytes (Bld) [#/Vol] 1.3 10 3/uL 1.2-3.8 [facility] Lymphocytes/100 WBC Auto (Bl d)on 03-27-2024 Lymphocytes/100 WBC (Bld) 13.3 % 20.5-60.0 [facility] MCH Auto (RBC) [Entitic mass ]on 03-27-2024 MCH (RBC) [Entitic mass] 29.2 pg 26.7-34.0 [facility] MCHC Auto (RBC) [Mass/Vol]on 03-27-2024 MCHC (RBC) [Mass/Vol] 32.4 g/dL 29.9-35.2 [facility] MCV Auto (RBC) [Entitic vol] on 03-27-2024 MCV (RBC) [Entitic vol] 90.3 fL 81.0-99.0 [facility] Monocytes Auto (Bld) [#/Vol] on 03-27-2024 Monocytes (Bld) [#/Vol] 0.8 10 3/uL 0.3-0.8 [facility] Monocytes/100 WBC Auto (Bld) on 03-27-2024 Monocytes/100 WBC (Bld) 8.4 % 1.7-12.0 [facility] Neutrophils Auto (Bld) [#/Vo l]on 03-27-2024 Neutrophils (Bld) [#/Vol] 7.4 10 3/uL 1.4-6.5 [facility] Neutrophils/100 WBC Auto (Bl d)on 03-27-2024 Neutrophils/100 WBC (Bld) 76.1 % 43.0-75.0 [facility] No Panel Informationon 03-27 Eosinophils # (Auto) 0.1 10 3/uL 0.0-0.7 [facility] Immature Granulocyte # (Auto) 0.03 10 3/uL 0.00-0.03 [facility] Platelet mean volume Auto (B ld) [Entitic vol]on 03-27-2024 Platelet mean volume (Bld) [Entitic vol] 10.6 fL 9.5-13.5 [facility] Platelets Auto (Bld) [#/Vol] on 03-27-2024 Platelets (Bld) [#/Vol] 204 10 3/uL 150-450 [facility] RBC Auto (Bld) [#/Vol]on RBC (Bld) [#/Vol] 4.14 10 6/uL 4.20-5.[address] [facility] Basophils Auto (Bld) [#/Vol] on 03-26-2024 Basophils (Bld) [#/Vol] 0.1 10 3/uL 0.0-0.1 [facility] Basophils/100 WBC Auto (Bld) on 03-26-2024 Basophils/100 WBC (Bld) 0.8 % 0.2-2.0 [facility] Eosinophils/100 WBC Auto (Bl d)on 03-26-2024 Eosinophils/100 WBC (Bld) 1.2 % 0.9-7.0 [facility] Erythrocyte distribution wid th Auto (RBC) [Ratio]on 03-26-2024 Erythrocyte distribution width (RBC) [Ratio] 14.5 % 11.0-15.0 [facility] Estimated glomerular filtrat ion rate (GFR) non- Americanon 03-26-2024 GFR/1.73 sq M.predicted among non-blacks MDRD (S/P/Bld) [Vol rate/Area] 46 mL/min/{1.73_m2} >=60 [facility] Glucose mean value [Mass/vol ume] in Blood Estimated from glycated hemoglobinon 03-26-2024 Average glucose Estimated from glycated hemoglobin (Bld) [Mass/Vol] 275 mg/dL [facility] Hematocrit Auto (Bld) [Volum e fraction]on 03-26-2024 Hematocrit (Bld) [Volume fraction] 40.1 % 36.0-48.0 [facility] Hemoglobin [Mass/volume] in Bloodon 03-26-2024 Hemoglobin (Bld) [Mass/Vol] 12.7 g/dL 12.0-16.0 [facility] Laboratory - Chemistry and C hemistry - challengeon 03-26-2024 Calcium [Mass/Vol] 9.1 mg/dL 8.5-10.1 [facility] Chloride [Moles/Vol] 102 mmol/L 98-107 [facility] CO2 [Moles/Vol] 28.5 mmol/L 21.0-32.0 [facility] Creatinine [Mass/Vol] 1.14 mg/dL 0.55-1.02 [facility] Free T4 [Mass/Vol] 1.29 ng/dL 0.76-1.46 [facility] GFR/1.73 sq M.predicted MDRD (S/P/Bld) [Vol rate/Area] 56 mL/min/{1.73_m2} >=60 [facility] Glucose [Mass/Vol] 246 mg/dL 74-106 [facility] Natriuretic peptide B (Bld) [Mass/Vol] 2890.0 pg/mL <=1800.0 [facility] Comment on above: RESULTS CALLED TO YOEL TAI RN @BY Alla Kunz 0556 Potassium [Moles/Vol] 4.3 mmol/L 3.5-5.1 [facility] Sodium [Moles/Vol] 136 mmol/L 136-145 [facility] TSH Qn 6.001 m[IU]/L 0.358-3.740 [facility] Urea nitrogen [Mass/Vol] 35.0 mg/dL 7.0-18.0 [facility] Urea nitrogen/Creatinine [Mass ratio] 30.7 mg/mg [facility] Laboratory - Hematology and Cell countson 03-26-2024 HbA1c (Bld) [Mass fraction] 11.2 % 4.5-6.2 [facility] Comment on above: ADA RECOMMENDED LIMI T 4.0 - 6.0ADA THERAPEUTIC TARGET < 7.0ACTION SUGGESTED> 7.0 Immature granulocytes/100 WBC (Bld) 0.2 % 0.0-0.5 [facility] Leukocytes [#/volume] correc gali for nucleated erythrocytes in Blood by Automated counon 03-26-2024 WBC corrected for nucl RBC Auto (Bld) [#/Vol] 8.3 10 3/uL 4.0-11.0 [facility] Lymphocytes Auto (Bld) [#/Vo l]on 03-26-2024 Lymphocytes (Bld) [#/Vol] 1.4 10 3/uL 1.2-3.8 [facility] Lymphocytes/100 WBC Auto (Bl d)on 03-26-2024 Lymphocytes/100 WBC (Bld) 16.5 % 20.5-60.0 [facility] MCH Auto (RBC) [Entitic mass ]on 03-26-2024 MCH (RBC) [Entitic mass] 29.1 pg 26.7-34.0 [facility] MCHC Auto (RBC) [Mass/Vol]on 03-26-2024 MCHC (RBC) [Mass/Vol] 31.7 g/dL 29.9-35.2 [facility] MCV Auto (RBC) [Entitic vol] on 03-26-2024 MCV (RBC) [Entitic vol] 92.0 fL 81.0-99.0 [facility] Monocytes Auto (Bld) [#/Vol] on 03-26-2024 Monocytes (Bld) [#/Vol] 0.7 10 3/uL 0.3-0.8 [facility] Monocytes/100 WBC Auto (Bld) on 03-26-2024 Monocytes/100 WBC (Bld) 7.9 % 1.7-12.0 [facility] Neutrophils Auto (Bld) [#/Vo l]on 03-26-2024 Neutrophils (Bld) [#/Vol] 6.1 10 3/uL 1.4-6.5 [facility] Neutrophils/100 WBC Auto (Bl d)on 03-26-2024 Neutrophils/100 WBC (Bld) 73.4 % 43.0-75.0 [facility] No Panel Informationon 03-26 Eosinophils # (Auto) 0.1 10 3/uL 0.0-0.7 [facility] Immature Granulocyte # (Auto) 0.02 10 3/uL 0.00-0.03 [facility] Troponin I High Sensitivity 12.4 pg/mL 4.0-51.3 [facility] Comment on above: CUT-OFF POINTS HAVE BEEN [...] volume (Bld) [Entitic vol] 10.8 fL 9.5-13.5 [facility] Platelets Auto (Bld) [#/Vol] on 03-26-2024 Platelets (Bld) [#/Vol] 225 10 3/uL 150-450 [facility] RBC Auto (Bld) [#/Vol]on RBC (Bld) [#/Vol] 4.36 10 6/uL 4.20-5.[address] [facility] Serum or plasma anion gap de terminationon 03-26-2024 Anion gap [Moles/Vol] 9.8 mmol/L [facility] MR cervical spine wo conon 0 03-13-2024 MR cervical spine wo con [facility] [place] [address] MRI Report Signed Patient: Joe Call MR#: [id number] 0 : 1945 Acct:[id number] Age/Sex: 78 / F ADM Date: 03/13/24 Loc: [facility] Room: Type: [facility] Attending Dr: Eloina Hussein MD Copies [...] Jarred Randolph M.D.03/13/2024 3:47 PM Dictation Location: [place] [address] Transcribed By: [facility] 03/13/24 1547 Dictated By: Jarred Randolph DO 03/13/24 1542 Signed By: 03/13/24 1547 Normal [facility] XR pre/post mri xrayon 03-13 XR pre/post mri xray [facility] [place] [address] MRI Report Signed Patient: Joe Call MR#: [id number] 0 : 1945 Acct:[id number] Age/Sex: 78 / F ADM Date: 03/13/24 Loc: [facility] Room: Type: [facility] Attending Dr: Eloina Hussein MD Copies to: Eloina Mullins MD Ordering Provider: Eloina Mullins MD Date of Service: 03/13/24 MR/MR lumbar spine wo con: M54.50 ([id number]) XR/XR pre/post mri xray: M54.50 MRI Lumbar [...] Jarred Randolph M.D.03/13/2024 3:58 PM Dictation Location: [place] [address] Transcribed By: [facility] 03/13/24 3354 Dictated By: Jarred Randolph DO 03/13/24 1551 Signed By: 03/13/24 1558 [facility] Office Visiton 03-07-2024 Follow-up visit [id number] Joe Call 1945 Provider Department Center 03/07/2024 RICA DEAN Family History Problem Relation Age of Onset Coronary artery disease Other Diabetes Other Polycystic kidney disease Other Family Status - Relation Status Age at Other Level of Service:41530 NM OFFICE/OUTPATIENT ESTABLISHED MOD MDM 30 MIN Reason for Visit and Comments: Follow-up [959935] - 6 month [facility] Office Visiton 08-17-2023 Follow-up visit [id number] Joe Call 1945 Provider Department Center 08/17/2023 [id number] GILLILAND Family History Problem Relation Age of Onset Coronary artery disease Other Diabetes Other Polycystic kidney disease Other Family Status - Relation Status Age at Other Level of Service:22293 NM OFFICE/OUTPATIENT ESTABLISHED MOD MDM 30-39 MIN [facility] 36on 07-25-2023 36 Pt informed [facility] 36on 07-24-2023 37 She does not need to drink 4 bottle of water. She needs to maintain a 2 L fluid restriction. This includes all fluid not just water. In regards to sleep, I told her she would need to discuss that with her PCP. Thanks. [facility] Office Visiton 07-23-2023 Follow-up visit [id number] Joe Call 1945 Date Provider Department Center 07/23/2023 ENZO BROWNE Family History Problem Relation Age of Onset Coronary artery disease Other Diabetes Other Polycystic kidney disease Other Family Status - Relation Status Age at Other Level of Service:85186 NM OFFICE/OUTPATIENT ESTABLISHED MOD MDM 30-39 MIN [facility] Office Visiton 04-25-2023 Follow-up visit [id number] Joe Call 1945 Date Provider Department Center 04/25/2023 RICA DEAN Family History Problem Relation Age of Onset Coronary artery disease Other Diabetes Other Polycystic kidney disease Other Family Status - Relation Status Age at Other Level of Service:01894 NM OFFICE/OUTPATIENT ESTABLISHED MOD MDM 30-39 MIN Reason for Visit and Comments: Atrial Fibrillation [80] Congestive Heart Failure [127] Hypertension [343567] Normal [facility] GI PANEL (PCR)on 03-06-2023 Adenovirus F 40/41 Not detected Normal NOT DETECTED [facility] Comment on above: Performed By: #### P OCGLUC #### [facility] [address] [place] [address] Dr. Kasia Nath Astrovirus Not detected Normal NOT DETECTED [facility] Comment on above: Performed By: #### P OCGLUC #### [facility] [address] [place] [address] Dr. Kasia Nath C. Diff toxin A/B Detected Critically abnormal NOT DETECTED [facility] Comment on above: Performed By: #### P OCGLUC #### [facility] [address] [place] [address] Dr. Kasia Nath Campylobacter Detected Critically abnormal NOT DETECTED [facility] Comment on above: Performed By: #### P OCGLUC #### [facility] [address] [place] [address] Dr. Kasia Nath Cryptosporidium Not detected Normal NOT DETECTED [facility] Comment on above: Performed By: #### P OCGLUC #### [facility] [address] [place] [address] Dr. Kasia Nath Cyclos. Cayetanensis Not detected Normal NOT DETECTED [facility] Comment on above: Performed By: #### P OCGLUC #### [facility] [address] [place] [address] Dr. Kasia Nath E. Coli O157 Not Applicable Normal Not Applicable [facility] Comment on above: Performed By: #### P OCGLUC #### [facility] [address] [place] [address] Dr. Kasia Nath E. histolytica Not detected Normal NOT DETECTED [facility] Comment on above: Performed By: #### P OCGLUC #### [facility] [address] [place] [address] Dr. Kasia Nath EAEC Not detected Normal NOT DETECTED [facility] Comment on above: Performed By: #### P OCGLUC #### [facility] [address] [place] [address] Dr. Kasia Nath EIEC Not detected Normal NOT DETECTED [facility] Comment on above: Performed By: #### P OCGLUC #### [facility] [address] [place] [address] Dr. Kasia Nath EPEC Not detected Normal NOT DETECTED [facility] Comment on above: Performed By: #### P OCGLUC #### [facility] [address] [place] [address] Dr. Kasia Nath ETEC Not detected Normal NOT DETECTED [facility] Comment on above: Performed By: #### P OCGLUC #### [facility] [address] [place] [address] Dr. Kasia Nath G. Lamblia Not detected Normal NOT DETECTED [facility] Comment on above: Performed By: #### P OCGLUC #### [facility] [address] [place] [address] Dr. Kasia KHAN CONTROLS PASSED Normal [facility] Comment on above: Performed By: #### P OCGLUC #### [facility] [address] [place] [address] Dr. Kasia [facility] HEAD[facility] GI PANEL BACTERIA Normal [facility] Comment on above: Performed By: #### P OCGLUC #### [facility] [address] [place] [address] Dr. Kasia GE ECOLI GI PANEL DIARRHEAGENIC E.COLI / SHIGELLA Normal [facility] Comment on above: Performed By: #### P OCGLUC #### [facility] [address] [place] [address] Dr. Kasia GE INFO SEE BELOW Normal [facility] Comment on above: Result Comment: EAEC - Enteroaggregative E. Coli EPEC- Enteropathogenic E. Coli ETEC- Enterotoxigenic E. Coli lt/st STEC- Shigella-like toxin-producing E. Coli stx1/stx2 EIEC- Shigella/Enteroinvasive E. Coli Performed By: #### P OCGLUC #### [facility] [address] [place] [address] [address] Kasia GE PARASITES GI PANEL PARASITES Normal [facility] Comment on above: Performed By: #### P OCGLUC #### [facility] [address] [place] [address] [address] Kasia GE VIRUS GI PANEL VIRUSES Normal [facility] Comment on above: Performed By: #### P OCGLUC #### [facility] [address] [place] [address] [address] Kasia Nath Norovirus GI/GII Not detected Normal NOT DETECTED [facility] Comment on above: Performed By: #### P OCGLUC #### [facility] [address] [place] [address] [address] Kasia Nath P. Shigelloides Not detected Normal NOT DETECTED [facility] Comment on above: Performed By: #### P OCGLUC #### [facility] [address] [place] [address] [address] Kasia Nath Rotavirus A Not detected Normal NOT DETECTED [facility] Comment on above: Performed By: #### P OCGLUC #### [facility] [address] [place] [address] [address] Kasia Nath Salmonella Not detected Normal NOT DETECTED [facility] Comment on above: Performed By: #### P OCGLUC #### [facility] [address] [place] [address] [address] Kasia Nath Sapovirus Not detected Normal NOT DETECTED [facility] Comment on above: Performed By: #### P OCGLUC #### [facility] [address] [place] [address] [address] Kasia Nath STEC Not detected Normal NOT DETECTED [facility] Comment on above: Performed By: #### P OCGLUC #### [facility] [address] [place] [address] [address] Kasia Nath Vibrio Not detected Normal NOT DETECTED [facility] Comment on above: Performed By: #### P OCGLUC #### [facility] [address] [place] [address] Dr. Kasia Nath Vibrio Cholera Not detected Normal NOT DETECTED [facility] Comment on above: Performed By: #### P OCGLUC #### [facility] [address] [place] [address] Dr. Kasia Nath Y. Enterocolitica Not detected Normal NOT DETECTED [facility] Comment on above: Performed By: #### P OCGLUC #### [facility] [address] [place] [address] Dr. Kasia Nath CBC AUTO DIFFon 02-14-2023 BASO # 0.0 103/ul Normal 0.0-0.1 [facility] Comment on above: Performed By: #### P OCGLUC #### [facility] [address] [place] [address] Dr. Kasia Nath Basophils/100 WBC (Bld) 0.5 % Normal 0.2-2.0 [facility] Comment on above: Performed By: #### P OCGLUC #### [facility] [address] [place] [address] Dr. Kasia Nath EO # 0.2 103/ul Normal 0.0-0.7 [facility] Comment on above: Performed By: #### P OCGLUC #### [facility] [address] [place] [address] Dr. Kasia Nath Eosinophils/100 WBC (Bld) 2.7 % Normal 0.9-7.0 [facility] Comment on above: Performed By: #### P OCGLUC #### [facility] [address] [place] [address] Dr. Kasia Nath Erythrocyte distribution width (RBC) [Ratio] 13.0 % Normal 11.0-15.0 [facility] Comment on above: Performed By: #### P OCGLUC #### [facility] [address] [place] [address] Dr. Kasia Nath Hematocrit (Bld) [Volume fraction] 35.9 % Critically low 36.0-48.0 [facility] Comment on above: Performed By: #### P OCGLUC #### [facility] [address] [place] [address] [address] Kasia Nath Hemoglobin (Bld) [Mass/Vol] 12.0 g/dL Normal 12.0-16.0 [facility] Comment on above: Performed By: #### P OCGLUC #### [facility] [address] [place] [address] Dr. Kasia Nath IG # 0.02 10e3/ul Normal 0.00-0.03 [facility] Comment on above: Performed By: #### P OCGLUC #### [facility] [address] [place] [address] Dr. Kasia Nath IG % 0.3 % Normal 0.0-0.5 [facility] Comment on above: Performed By: #### P OCGLUC #### [facility] [address] [place] [address] Dr. Kasia Nath LYMPH # 1.8 103/ul Normal 1.2-3.8 [facility] Comment on above: Performed By: #### P OCGLUC #### [facility] [address] [place] [address] Dr. Kasia Nath Lymphocytes/100 WBC (Bld) 22.8 % Normal 20.5-60.0 [facility] Comment on above: Performed By: #### P OCGLUC #### [facility] [address] [place] [address] Dr. Kasia Nath MANUAL DIFF REQ NO Normal [facility] Comment on above: Performed By: #### P OCGLUC #### [facility] [address] [place] [address] Dr. Kasia Nath MCH (RBC) [Entitic mass] 29.4 pg Normal 26.7-34.0 [facility] Comment on above: Performed By: #### P OCGLUC #### [facility] [address] [place] [address] Dr. Kasia Nath MCHC (RBC) [Mass/Vol] 33.4 g/dL Normal 29.9-35.2 [facility] Comment on above: Performed By: #### P OCGLUC #### [facility] [address] [place] [address] Dr. Kasia Nath MCV (RBC) [Entitic vol] 88.0 fL Normal 81.0-99.0 [facility] Comment on above: Performed By: #### P OCGLUC #### [facility] [address] [place] [address] Dr. Kasia Nath MONO # 0.7 103/ul Normal 0.3-0.8 [facility] Comment on above: Performed By: #### P OCGLUC #### [facility] [address] [place] [address] Dr. Kasia Nath Monocytes/100 WBC (Bld) 9.3 % Normal 1.7-12.0 [facility] Comment on above: Performed By: #### P OCGLUC #### [facility] [address] [place] [address] Dr. Kasia Nath NEUT # 5.1 103/ul Normal 1.4-6.5 [facility] Comment on above: Performed By: #### P OCGLUC #### [facility] [address] [place] [address] Dr. Kasia Nath Neutrophils/100 WBC (Bld) 64.4 % Normal 43.0-75.0 [facility] Comment on above: Performed By: #### P OCGLUC #### [facility] [address] [place] [address] Dr. Kasia Nath Platelet mean volume (Bld) [Entitic vol] 11.7 fL Normal 9.5-13.5 [facility] Comment on above: Performed By: #### P OCGLUC #### [facility] [address] [place] [address] Dr. Kasia Nath PLT 175 103/ul Normal 150-450 [facility] Comment on above: Performed By: #### P OCGLUC #### [facility] [address] [place] [address] Dr. Kasia Nath RBC 4.08 106/ul Critically low 4.20-5.40 [facility] Comment on above: Performed By: #### P OCGLUC #### [facility] [address] [place] [address] Dr. Kasia Nath WBC 7.9 103/ul Normal 4.0-11.0 [facility] Comment on above: Performed By: #### P OCGLUC #### [facility] [address] [place] [address] [address] Kasia Nath LIPASEon 02-14-2023 Lipase [Catalytic activity/Vol] 51.0 U/L Critically low 73.0-393.0 [facility] Comment on above: Performed By: #### L IPA, CMP ####[facility] [address] [place] [address]DrDoreen Nath PROF 14(COMP METB)on 023 Albumin [Mass/Vol] 2.8 g/dL Critically low 3.4-5.0 [facility] Comment on above: Performed By: #### L IPA, CMP ####[facility] [address] [place] [address]DrDoreen Nath Albumin/Globulin [Mass ratio] 0.7 {ratio} Normal [facility] Comment on above: Performed By: #### L IPA, CMP ####[facility] [address] [place] [address]Dr. Kasia Nath ALP [Catalytic activity/Vol] 90 U/L Normal 46-116 [facility] Comment on above: Performed By: #### L IPA, CMP ####[facility] [address] [place] [address]Dr. Kasia Nath ALT [Catalytic activity/Vol] 15 U/L Normal 14-59 [facility] Comment on above: Performed By: #### L IPA, CMP ####[facility] [address] [place] [address]Dr. Kasia Nath Anion gap [Moles/Vol] 15.6 mmol/L Normal [facility] Comment on above: Performed By: #### L IPA, CMP ####[facility] [address] [place] [address]Dr. Kasia Nath AST [Catalytic activity/Vol] 9 U/L Critically low 15-37 [facility] Comment on above: Performed By: #### L IPA, CMP ####[facility] [address] [place] [address]Dr. Kasia Nath Bilirubin [Mass/Vol] 0.4 mg/dL Normal 0.2-1.0 [facility] Comment on above: Performed By: #### L IPA, CMP ####[facility] [address] [place] [address]Dr. Kasia Nath Calcium [Mass/Vol] 9.1 mg/dL Normal 8.5-10.1 [facility] Comment on above: Performed By: #### L IPA, CMP ####[facility] [address] [place], [place] [address]Dr. Kasia Nath Chloride [Moles/Vol] 104 mmol/L Normal 98-107 [facility] Comment on above: Performed By: #### L IPA, CMP ####[facility] [address] [place], [place] [address]Dr. Kasia Nath CO2 [Moles/Vol] 17.0 mmol/L Critically low 21.0-32.0 [facility] Comment on above: Performed By: #### L IPA, CMP ####[facility] [address] [place], [place] [address]Dr. Kasia Nath Creatinine [Mass/Vol] 1.78 mg/dL Critically high 0.55-1.02 [facility] Comment on above: Performed By: #### L IPA, CMP ####[facility] [address] [place], [place] [address]Dr. Kasia Portillo EGFR-AF [place] 34 mL/min/1.73m2 Critically low >=60 [facility] Comment on above: Performed By: #### L IPA, CMP ####[facility] [address] [place], [place] [address]Dr. Kasia Nath EGFR-NON AF [place] 28 mL/min/1.73m2 Critically low >=60 [facility] Comment on above: Performed By: #### L IPA, CMP ####[facility] [address] [place], [place] [address]Dr. Kasia Portillo Globulin (S) [Mass/Vol] 4.3 g/dL Normal [facility] Comment on above: Performed By: #### L IPA, CMP ####[facility] [address] [place] [address]Dr. Kasia Nath Glucose [Mass/Vol] 248 mg/dL Critically high 74-106 [facility] Comment on above: Performed By: #### L IPA, CMP ####[facility] [address] [place], [place] [address]Dr. Kasia Nath Potassium [Moles/Vol] 4.6 mmol/L Normal 3.5-5.1 [facility] Comment on above: Performed By: #### L IPA, CMP ####[facility] [address] [place], [place] [address]Dr. Kasia Nath Protein [Mass/Vol] 7.1 g/dL Normal 6.4-8.2 [facility] Comment on above: Performed By: #### L IPA, CMP ####[facility] [address] [place], [place] [address]Dr. Kasia Nath Sodium [Moles/Vol] 132 mmol/L Critically low 136-145 [facility] Comment on above: Performed By: #### L IPA, CMP ####[facility] [address] [place], [place] [address]Dr. Kasia Nath Urea nitrogen [Mass/Vol] 78.0 mg/dL Critically high 7.0-18.0 [facility] Comment on above: Performed By: #### L IPA, CMP ####[facility] [address] [place], [place] [address]Dr. Kasia Nath Urea nitrogen/Creatinine [Mass ratio] 43.8 mg/mg Normal [facility] Comment on above: Performed By: #### L IPA, CMP ####[facility] [address] [place], [place] [address]Dr. Kasia Nath CBC AUTO DIFFon 02-13-2023 BASO # 0.0 103/ul Normal 0.0-0.1 [facility] Comment on above: Performed By: #### C BC ####[facility] [address] [place], [place] [address]Dr. Kasia Nath Basophils/100 WBC (Bld) 0.5 % Normal 0.2-2.0 [facility] Comment on above: Performed By: #### C BC ####[facility] Ktnxf[address]pex[address] [place], [place] [address]Dr. Kasia Nath EO # 0.1 103/ul Normal 0.0-0.7 [facility] Comment on above: Performed By: #### C BC ####[facility] Hyufwmyqrh[address] [place], [place] [address]Dr. Kasia Nath Eosinophils/100 WBC (Bld) 1.0 % Normal 0.9-7.0 [facility] Comment on above: Performed By: #### C BC ####[facility] Wtcsflijsl[address] [place], [place] [address]Dr. Kasia Nath Erythrocyte distribution width (RBC) [Ratio] 12.8 % Normal 11.0-15.0 [facility] Comment on above: Performed By: #### C BC ####[facility] Xqhuojw[address] [place], [place] [address]Dr. Kasia Nath Hematocrit (Bld) [Volume fraction] 38.5 % Normal 36.0-48.0 [facility] Comment on above: Performed By: #### C BC ####[facility] Jzxgbmwvdf[address] [place], [place] [address]Dr. Kasia Nath Hemoglobin (Bld) [Mass/Vol] 13.0 g/dL Normal 12.0-16.0 [facility] Comment on above: Performed By: #### C BC ####[facility] Trxmayamge[address] [place], [place] [address]Dr. Kasia Nath IG # 0.02 10e3/ul Normal 0.00-0.03 [facility] Comment on above: Performed By: #### C BC ####[facility] Y[address]ynjrsuz[address] [place], [place] [address]Dr. Kasia Nath IG % 0.2 % Normal 0.0-0.5 [facility] Comment on above: Performed By: #### C BC ####[facility] Jeminmnqkf[address] [place], [place] [address]Dr. Kasia Nath LYMPH # 0.9 103/ul Critically low 1.2-3.8 [facility] Comment on above: Performed By: #### C BC ####[facility] [address] [place] [address]Dr. Kasia Nath Lymphocytes/100 WBC (Bld) 10.0 % Critically low 20.5-60.0 [facility] Comment on above: Performed By: #### C BC ####[facility] [address] [place] [address]Dr. Kasia Nath MANUAL DIFF REQ NO Normal [facility] Comment on above: Performed By: #### C BC ####[facility] Nowjzbloac[address] [place] [address]Dr. Kasia Nath MCH (RBC) [Entitic mass] 29.5 pg Normal 26.7-34.0 [facility] Comment on above: Performed By: #### C BC ####[facility] Vfytmmkiec[address] [place], [place] [address]Dr. Kasia Nath MCHC (RBC) [Mass/Vol] 33.8 g/dL Normal 29.9-35.2 [facility] Comment on above: Performed By: #### C BC ####[facility] Cogwwcovrm[address] [place], [place] [address]Dr. Kasia Nath MCV (RBC) [Entitic vol] 87.5 fL Normal 81.0-99.0 [facility] Comment on above: Performed By: #### C BC ####[facility] [address] [place] [address]Dr. Kasia Nath MONO # 0.5 103/ul Normal 0.3-0.8 [facility] Comment on above: Performed By: #### C BC ####[facility] [address] [place] [address]Dr. Kasia Nath Monocytes/100 WBC (Bld) 5.7 % Normal 1.7-12.0 [facility] Comment on above: Performed By: #### C BC ####[facility] Wpszx[address] [place], [place] [address]Dr. Kasia Nath NEUT # 7.2 103/ul Critically high 1.4-6.5 [facility] Comment on above: Performed By: #### C BC ####[facility] [address] [place] [id number]. Kasia Nath Neutrophils/100 WBC (Bld) 82.6 % Critically high 43.0-75.0 [facility] Comment on above: Performed By: #### C BC ####[facility] [address] [place] [id number]. Kasia Nath Platelet mean volume (Bld) [Entitic vol] 11.8 fL Normal 9.5-13.5 [facility] Comment on above: Performed By: #### C BC ####[facility] [address] [place] [address]Dr. Kasia Nath PLT 187 103/ul Normal 150-450 [facility] Comment on above: Performed By: #### C BC ####[facility] P[address] [place] [id number]. Kasia Nath RBC 4.40 106/ul Normal 4.20-5.40 [facility] Comment on above: Performed By: #### C BC ####[facility] [address] [place] [address]Dr. Kasia Nath WBC 8.8 103/ul Normal 4.0-11.0 [facility] Comment on above: Performed By: #### C BC ####[facility] [address]qbs[address]ws[address] [place] [address] Kasia Nath CT ABD/PELVIS WO CONon 02-13 [...] JACOB MCCURDY Date: 2023-02-13 14:40 Normal [facility] CULTURE URINEon 02-13-2023 CULTURE URINE Culture Observations : LIGHT GROWTH OF MIXED GENITAL VON. NO POTENTIAL PATHOGENS SEEN. Normal [facility] Comment on above: Performed By: #### U RCX ####[facility] [address] [place] [address]DrDoreen Nath Covid-19 PCR ([facility]on SARS-CoV-2 (COVID-19) RNA FERN+probe Ql (Unsp spec) Not detected Normal NOT DETECTED [facility] Comment on above: Result Comment: When [...] for this test is supported by the [employer] Worker of Health and Human Service's declaration that [...] used). Performed By: #### P OCGLUC #### [facility] [address] [place] [address] Dr. Kasia Nath GI PANEL (PCR)on 02-13-2023 Adenovirus F 40/41 Not detected Normal NOT DETECTED [facility] Comment on above: Performed By: #### C BC #### [facility] [address] [place] [address] Dr. Kasia Nath Astrovirus Not detected Normal NOT DETECTED [facility] Comment on above: Performed By: #### C BC #### [facility] [address] [place] [address] Dr. Kasia Del Real. Diff toxin A/B Not detected Normal NOT DETECTED [facility] Comment on above: Performed By: #### C BC #### [facility] [address] [place] [address] Dr. Kasia Nath Campylobacter Not detected Normal NOT DETECTED [facility] Comment on above: Performed By: #### C BC #### [facility] [address] [place] [address] Dr. Kasia Nath Cryptosporidium Not detected Normal NOT DETECTED [facility] Comment on above: Performed By: #### C BC #### [facility] [address] [place] [address] Dr. Kasia Nath Cyclos. Cayetanensis Not detected Normal NOT DETECTED [facility] Comment on above: Performed By: #### C BC #### [facility] [address] [place] [address] Dr. Kasia Nath E. Coli O157 Not Applicable Normal Not Applicable [facility] Comment on above: Performed By: #### C BC #### [facility] [address] [place] [address] Dr. Kasia Nath E. histolytica Not detected Normal NOT DETECTED [facility] Comment on above: Performed By: #### C BC #### [facility] [address] [place] [address] Dr. Kasia Nath EAEC Not detected Normal NOT DETECTED [facility] Comment on above: Performed By: #### C BC #### [facility] [address] [place] [address] Dr. Kasia Nath EIEC Not detected Normal NOT DETECTED [facility] Comment on above: Performed By: #### C BC #### [facility] [address] [place] [address] Dr. Kasia Naht EPEC Not detected Normal NOT DETECTED [facility] Comment on above: Performed By: #### C BC #### [facility] [address] [place] [address] Dr. Kasia Nath ETEC Not detected Normal NOT DETECTED [facility] Comment on above: Performed By: #### C BC #### [facility] [address] [place] [address] Dr. Kasia Nath G. Lamblia Not detected Normal NOT DETECTED [facility] Comment on above: Performed By: #### C BC #### [facility] [address] [place] [address] Dr. Kasia KHAN CONTROLS PASSED Normal [facility] Comment on above: Performed By: #### C BC #### [facility] [address] [place] [address] Dr. Kasia [facility] HEAD[facility] GI PANEL BACTERIA Normal [facility] Comment on above: Performed By: #### C BC #### [facility] [address] [place] [address] Dr. Kasia GE ECOLI GI PANEL DIARRHEAGENIC E.COLI / SHIGELLA Normal [facility] Comment on above: Performed By: #### C BC #### [facility] [address] [place] [address] Dr. Kasia GE INFO SEE BELOW [facility] Comment on above: Result Comment: EAEC - Enteroaggregative E. Coli EPEC- Enteropathogenic E. Coli ETEC- Enterotoxigenic E. Coli lt/st STEC- Shigella-like toxin-producing E. Coli stx1/stx2 EIEC- Shigella/Enteroinvasive E. Coli Performed By: #### C BC #### [facility] [address] [place] [address] Dr. Kasia GE PARASITES GI PANEL PARASITES Normal [facility] Comment on above: Performed By: #### C BC #### [facility] [address] [place] [address] [address] Kasia GE VIRUS GI PANEL VIRUSES Normal [facility] Comment on above: Performed By: #### C BC #### [facility] [address] [place] [address] Dr. Kasia Nath Norovirus GI/GII Not detected Normal NOT DETECTED [facility] Comment on above: Performed By: #### C BC #### [facility] [address] [place] [address] Dr. Kasia Nath P. Shigelloides Not detected Normal NOT DETECTED [facility] Comment on above: Performed By: #### C BC #### [facility] [address] [place] [address] Dr. Kasia Nath Rotavirus A Not detected Normal NOT DETECTED [facility] Comment on above: Performed By: #### C BC #### [facility] [address] [place] [address] Dr. Kasia Nath Salmonella Not detected Normal NOT DETECTED [facility] Comment on above: Performed By: #### C BC #### [facility] [address] [place] [address] Dr. Kasia Nath Sapovirus Not detected Normal NOT DETECTED [facility] Comment on above: Performed By: #### C BC #### [facility] [address] [place] [address] Dr. Kasia Nath STEC Not detected Normal NOT DETECTED [facility] Comment on above: Performed By: #### C BC #### [facility] [address] [place] [address] Dr. Kasia Nath Vibrio Not detected Normal NOT DETECTED [facility] Comment on above: Performed By: #### C BC #### [facility] [address] [place] [address] Dr. Kasia Nath Vibrio Cholera Not detected Normal NOT DETECTED [facility] Comment on above: Performed By: #### C BC #### [facility] [address] [place] [address] Dr. Kasia Nath Y. Enterocolitica Not detected Normal NOT DETECTED [facility] Comment on above: Performed By: #### C BC #### [facility] [address] [address] [address] Kasia Nath LACTATE/LACTIC ACIDon 2022 Lactate [Moles/Vol] 1.7 mmol/L Normal 0.4-2.0 [facility] Comment on above: Performed By: #### L ACT ####[facility] [address] [place], [place] [address]Dr. Kasia Nath LIPASEon 02-13-2023 Lipase [Catalytic activity/Vol] 82.0 U/L Normal 73.0-393.0 [facility] Comment on above: Performed By: #### L IPA, CMP #### [facility] [address] [place] [address] Dr. Kasia Nath POINT OF CARE GLUCOSEon Glucose [Mass/Vol] 474 mg/dL Critically high -106 [facility] Comment on above: Performed By: #### P OCGLUC #### [facility] [address] [place] [address] Dr. Kasia Nath Glucose [Mass/Vol] 229 mg/dL Critically high -106 [facility] Comment on above: Performed By: #### P OCGLUC #### [facility] [address] [place] [address] Dr. Kasia Nath PROF 14(COMP METB)on 023 Albumin [Mass/Vol] 3.4 g/dL Normal 3.4-5.0 [facility] Comment on above: Performed By: #### L IPA, CMP #### [facility] [address] [place] [address] Dr. Kasia Nath Albumin/Globulin [Mass ratio] 0.7 {ratio} Normal [facility] Comment on above: Performed By: #### L IPA, CMP #### [facility] [address] [address] [address] Kasia Nath ALP [Catalytic activity/Vol] 106 U/L Normal 46-116 [facility] Comment on above: Performed By: #### L IPA, CMP #### [facility] [address] [address] [address] Kasia Nath ALT [Catalytic activity/Vol] 21 U/L Normal 14-59 [facility] Comment on above: Performed By: #### L IPA, CMP #### [facility] [address] [address] [address] Kasia Nath Anion gap [Moles/Vol] 17.7 mmol/L Normal [facility] Comment on above: Performed By: #### L IPA, CMP #### [facility] [address] [address] [address] Kasia Nath AST [Catalytic activity/Vol] 11 U/L Critically low 15-37 [facility] Comment on above: Performed By: #### L IPA, CMP #### [facility] [address] [address] [address] Kasia Nath Bilirubin [Mass/Vol] 0.5 mg/dL Normal 0.2-1.0 [facility] Comment on above: Performed By: #### L IPA, CMP #### [facility] [address] [address] [address] Kasia Nath Calcium [Mass/Vol] 9.6 mg/dL Normal 8.5-10.1 [facility] Comment on above: Performed By: #### L IPA, CMP #### [facility] [address] [address] [address] Kasia Nath Chloride [Moles/Vol] 99 mmol/L Normal 98-107 [facility] Comment on above: Performed By: #### L IPA, CMP #### [facility] [address] [place] [address] [address] Kasia Nath CO2 [Moles/Vol] 20.6 mmol/L Critically low 21.0-32.0 [facility] Comment on above: Performed By: #### L IPA, CMP #### [facility] [address] [address] [address] Kasia Nath Creatinine [Mass/Vol] 2.14 mg/dL Critically high 0.55-1.02 [facility] Comment on above: Performed By: #### L IPA, CMP #### [facility] [address] [address] [address] Kasia Nath EGFR-AF [place] 27 mL/min/1.73m2 Critically low >=60 [facility] Comment on above: Performed By: #### L IPA, CMP #### [facility] [address] [address] [address] Kasia Nath EGFR-NON AF [place] 22 mL/min/1.73m2 Critically low >=60 [facility] Comment on above: Performed By: #### L IPA, CMP #### [facility] [address] [address] [address] Kasia Nath Globulin (S) [Mass/Vol] 4.8 g/dL Normal [facility] Comment on above: Performed By: #### L IPA, CMP #### [facility] [address] [address] [address] aKsia Nath Glucose [Mass/Vol] 498 mg/dL Critically high 74-106 [facility] Comment on above: Performed By: #### L IPA, CMP #### [facility] [address] [address] [address] Kasia Nath Potassium [Moles/Vol] 5.3 mmol/L Critically high 3.5-5.1 [facility] Comment on above: Performed By: #### L IPA, CMP #### [facility] [address] [address] [address] Kasia Nath Protein [Mass/Vol] 8.2 g/dL Normal 6.4-8.2 [facility] Comment on above: Performed By: #### L IPA, CMP #### [facility] [address] [place] [address] [address] Kasia Nath Sodium [Moles/Vol] 132 mmol/L Critically low 136-145 [facility] Comment on above: Performed By: #### L IPA, CMP #### [facility] [address] [place] [address] [address] Kasia Nath Urea nitrogen [Mass/Vol] 86.0 mg/dL Critically high 7.0-18.0 [facility] Comment on above: Performed By: #### L IPA, CMP #### [facility] [address] [place] [address] [address] Kasia Nath Urea nitrogen/Creatinine [Mass ratio] 40.2 mg/mg Normal [facility] Comment on above: Performed By: #### L IPA, CMP #### [facility] [address] [place] [address] [address] Kasia Nath UA RANDOM W/MICROSCOPICon BACTERIA TRACE Abnormal NONE SEEN [facility] Comment on above: Performed By: #### U AMIC ####[facility] [address] [place] [address]Dr. Kasia Nath Bilirubin Ql (U) Negative Normal NEGATIVE [facility] Comment on above: Performed By: #### U AMIC ####[facility] [address] [place] [address]Dr. Kasia Nath CAST SEEN Abnormal NONE SEEN [facility] Comment on above: Performed By: #### U AMIC ####[facility] [address] [place] [address]Dr. Kasia Nath Clarity (U) CLEAR Normal CLEAR [facility] Comment on above: Performed By: #### U AMIC ####[facility] [address] [place] [address]Dr. Kasia Nath Color (U) LT. YELLOW Normal YELLOW [facility] Comment on above: Performed By: #### U AMIC ####[facility] [address] [place] [address]Dr. Kasia Nath Crystals LM Nom (Urine sed) NONE SEEN Normal NONE SEEN [facility] Comment on above: Performed By: #### U AMIC ####[facility] [address] [place], [place] [address]DrDoreen Nath Epithelial cells LM Ql (Urine sed) FEW Abnormal NONE SEEN /RARE [facility] Comment on above: Performed By: #### U AMIC ####[facility] [address] [place] [address]Dr. Kasia Nath Glucose Ql (U) >1000 Abnormal NEGATIVE [facility] Comment on above: Performed By: #### U AMIC ####[facility] [address] [place] [address]Dr. Kasia Nath Hemoglobin Ql (U) Negative Normal NEGATIVE [facility] Comment on above: Performed By: #### U AMIC ####[facility] [address] [place] [address]Dr. Kasia Nath HYALINE CAST RARE Normal [facility] Comment on above: Performed By: #### U AMIC ####[facility] [address] [place], [place] [address]Dr. Kasia Nath Ketones Ql (U) Negative Normal NEGATIVE [facility] Comment on above: Performed By: #### U AMIC ####[facility] [address] [place], [place] [address]Dr. Kasia Nath LEUKOCYTES Negative Normal NEGATIVE [facility] Comment on above: Performed By: #### U AMIC ####[facility] [address] [place], [place] [address]Dr. Fartuncristy Nath MUCOUS NONE SEEN Normal NONE SEEN [facility] Comment on above: Performed By: #### U AMIC ####[facility] [address] [place] [address]Dr. Kasia Nath Nitrite Ql (U) Negative Normal NEGATIVE [facility] Comment on above: Performed By: #### U AMIC ####[facility] [address]vx[address] [place] [address]Dr. Kasia Nath pH (U) 5.5 [pH] Normal 5-9 [facility] Comment on above: Performed By: #### U AMIC ####[facility] [address] [place] [address]Dr. Kasia Nath RBC 0-2 Normal 0-2 [facility] Comment on above: Performed By: #### U AMIC ####[facility] [address]aw[address] [place] [address]Dr. Kasia Nath SPEC GRAVITY 1.015 Normal 1.005-<=1.025 [facility] Comment on above: Performed By: #### U AMIC ####[facility] [address] [place] [address]Dr. Kasia Nath UA PROTEIN TRACE Normal NEGATIVE/ TRACE [facility] Comment on above: Performed By: #### U AMIC ####[facility] [address] [place] [address]Dr. Kasia Nath Urobilinogen Qn (U) 0.2 {Meka'U}/dL Normal 0.2 - 1. 0 [facility] Comment on above: Performed By: #### U AMIC ####[facility] [address] [place] [address]Dr. Kasia Nath WBC 0-2 Abnormal NONE SEEN [facility] Comment on above: Performed By: #### U AMIC ####[facility] [address]qzltc[address] [place], [place] [address]Dr. Kasia Nath BNPon 01-16-2023 Natriuretic peptide B (Bld) [Mass/Vol] 1675.0 pg/mL Normal <=1,800.0 [facility] Comment on above: Performed By: #### B SEED ANALYST, CMP ####[facility] [address] [place], [place] [address]Dr. Kasia Nath PROF 14(COMP METB)on 023 Albumin [Mass/Vol] 3.4 g/dL Normal 3.4-5.0 [facility] Comment on above: Performed By: #### B SEED ANALYST, CMP ####[facility] [address] [place], [place] [address]Dr. Kasia Nath Albumin/Globulin [Mass ratio] 0.8 {ratio} Normal [facility] Comment on above: Performed By: #### B SEED ANALYST, CMP ####[facility] O[address]pp[address]nrp[address] [place], [place] [address]Dr. Kasia Nath ALP [Catalytic activity/Vol] 99 U/L Normal 46-116 [facility] Comment on above: Performed By: #### B SEED ANALYST, CMP ####[facility] [address] [place] [address]Dr. Kasia Nath ALT [Catalytic activity/Vol] 18 U/L Normal 14-59 [facility] Comment on above: Performed By: #### B SEED ANALYST, CMP ####[facility] [address] [place] [address]Dr. Kasia Nath Anion gap [Moles/Vol] 10.6 mmol/L Normal [facility] Comment on above: Performed By: #### B SEED ANALYST, CMP ####[facility] [address]rue[address] [place], [place] [address]Dr. Kasia Nath AST [Catalytic activity/Vol] 15 U/L Normal 15-37 [facility] Comment on above: Performed By: #### B SEED ANALYST, CMP ####[facility] B[address]srss[address] [place], [place] [address]Dr. Kasia Nath Bilirubin [Mass/Vol] 0.5 mg/dL Normal 0.2-1.0 [facility] Comment on above: Performed By: #### B SEED ANALYST, CMP ####[facility] Ofz[address]wxkil[address] [place], [place] [address]Dr. Kasia Nath Calcium [Mass/Vol] 9.1 mg/dL Normal 8.5-10.1 [facility] Comment on above: Performed By: #### B SEED ANALYST, CMP ####[facility] [address] [place], [place] [address]Dr. Kasai Nath Chloride [Moles/Vol] 98 mmol/L Normal 98-107 [facility] Comment on above: Performed By: #### B SEED ANALYST, CMP ####[facility] [address] [address] [place], [place] [address]Dr. Kasia Nath CO2 [Moles/Vol] 30.4 mmol/L Normal 21.0-32.0 [facility] Comment on above: Performed By: #### B SEED ANALYST, CMP ####[facility] [address] [place], [place] [address]Dr. Kasia Nath Creatinine [Mass/Vol] 1.44 mg/dL Critically high 0.55-1.02 [facility] Comment on above: Performed By: #### B SEED ANALYST, CMP ####[facility] [address] [place], [place] [address]Dr. Kasia Nath EGFR-AF [place] 43 mL/min/1.73m2 Critically low >=60 [facility] Comment on above: Performed By: #### B SEED ANALYST, CMP ####[facility] [address] [place], [place] [address]Dr. Kasia Portillo EGFR-NON AF [place] 35 mL/min/1.73m2 Critically low >=60 [facility] Comment on above: Performed By: #### B SEED ANALYST, CMP ####[facility] Ens[address] [place], [place] [address]Dr. Kasia Nath Globulin (S) [Mass/Vol] 4.4 g/dL Normal [facility] Comment on above: Performed By: #### B SEED ANALYST, CMP ####[facility] [address] [place], [place] [address]Dr. Kasia Nath Glucose [Mass/Vol] 401 mg/dL Critically high 74-106 [facility] Comment on above: Performed By: #### B SEED ANALYST, CMP ####[facility] Fweiz[address] [place], [place] [address]Dr. Kasia Nath Potassium [Moles/Vol] 5.0 mmol/L Normal 3.5-5.1 [facility] Comment on above: Performed By: #### B SEED ANALYST, CMP ####[facility] Eh[address]sewk[address] [place], [place] [address]Dr. Kasia Nath Protein [Mass/Vol] 7.8 g/dL Normal 6.4-8.2 [facility] Comment on above: Performed By: #### B SEED ANALYST, CMP ####[facility] Mhbrien[address] [place], [place] [address]Dr. Kasia Nath Sodium [Moles/Vol] 134 mmol/L Critically low 136-145 [facility] Comment on above: Performed By: #### B SEED ANALYST, CMP ####[facility] [address] [place] [address]Dr. Kasia Nath Urea nitrogen [Mass/Vol] 46.0 mg/dL Critically high 7.0-18.0 [facility] Comment on above: Performed By: #### B SEED ANALYST, CMP ####[facility] [address] [place] [address]Dr. Kaisa Nath Urea nitrogen/Creatinine [Mass ratio] 31.9 mg/mg Normal [facility] Comment on above: Performed By: #### B SEED ANALYST, CMP ####[facility] [address] [place] [address]Dr. Kasia Nath BNPon 01-05-2023 Natriuretic peptide B (Bld) [Mass/Vol] 1389.0 pg/mL Normal <=1,800.0 [facility] Comment on above: Performed By: #### B SEED ANALYST, CMADM, CMP ####[facility] [address] [place] [address]Dr. Kasia Nath CARDIAC EMERY ADMITon 023 CK [Catalytic activity/Vol] 138 U/L Normal 26-192 [facility] Comment on above: Performed By: #### B SEED ANALYST, CMADM, CMP ####[facility] [address] [place] [address]Dr. Kasia Portillo CK.MB [Mass/Vol] 2.22 ng/mL Normal <=3.60 [facility] Comment on above: Performed By: #### B SEED ANALYST, CMADM, CMP ####[facility] [address] [place] [address]Dr. Kasia Nath HSTROP 15.9 pg/mL Normal 4.0-51.3 [facility] Comment on above: Result Comment: CUT- OFF POINTS HAVE BEEN ESTABLISHED BASED ON THE FOURTH UNIVERSAL DEFINITIONS OF MYOCARDIAL INFARCTION. THE UPPER REFERENCE LIMIT (URL) OF TROPONIN, DEFINED THE 99TH PERCENTILE OF cTnI DISTRIBUTION IN A REFERENCE POPULATION, HAS BEEN CONFIRMED THE DECISION THRESHOLD FOR MA DIAGNOSIS. Performed By: #### B SEED ANALYST, CMADM, CMP ####[facility] [address] [address]Dr. Fartuncristy Nath GRETTA 178 ng/mL Critically high 9-82 [facility] Comment on above: Performed By: #### B SEED ANALYST, CMADM, CMP ####[facility] [address] [place], [place] [address]UoDr. Kasia Nath CBC AUTO DIFFon 01-05-2023 BASO # 0.1 103/ul Normal 0.0-0.1 [facility] Comment on above: Performed By: #### C BC #### [facility] [id number] Kasia Nath Basophils/100 WBC (Bld) 0.7 % Normal 0.2-2.0 [facility] Comment on above: Performed By: #### C BC #### [facility] [address] [place] [address] Dr. Kasia Nath EO # 0.3 103/ul Normal 0.0-0.7 [facility] Comment on above: Performed By: #### C BC #### [facility] [address] [address] [address] Kasia Nath Eosinophils/100 WBC (Bld) 2.9 % Normal 0.9-7.0 [facility] Comment on above: Performed By: #### C BC #### [facility] [address] [place] [address] Dr. Kasia Nath Erythrocyte distribution width (RBC) [Ratio] 13.5 % Normal 11.0-15.0 [facility] Comment on above: Performed By: #### C BC #### [facility] [address] [place] [address] Dr. Kasia Nath Hematocrit (Bld) [Volume fraction] 39.8 % Normal 36.0-48.0 [facility] Comment on above: Performed By: #### C BC #### [facility] [address] [place] [address] Dr. Kasia Nath Hemoglobin (Bld) [Mass/Vol] 13.5 g/dL Normal 12.0-16.0 [facility] Comment on above: Performed By: #### C BC #### [facility] [address] [place] [address] Dr. Kasia Nath IG # 0.02 10e3/ul Normal 0.00-0.03 [facility] Comment on above: Performed By: #### C BC #### [facility] [address] [place] [address] Dr. Kasia Nath IG % 0.2 % Normal 0.0-0.5 [facility] Comment on above: Performed By: #### C BC #### [facility] [address] [place] [address] Dr. Kasia Nath LYMPH # 1.9 103/ul Normal 1.2-3.8 [facility] Comment on above: Performed By: #### C BC #### [facility] [address] [place] [address] Dr. Kasia Nath Lymphocytes/100 WBC (Bld) 22.0 % Normal 20.5-60.0 [facility] Comment on above: Performed By: #### C BC #### [facility] [address] [place] [address] Dr. Kasia Nath MANUAL DIFF REQ NO Normal [facility] Comment on above: Performed By: #### C BC #### [facility] [address] [place] [address] Dr. Kasia Nath MCH (RBC) [Entitic mass] 29.8 pg Normal 26.7-34.0 [facility] Comment on above: Performed By: #### C BC #### [facility] [address] [place] [address] Dr. Kasia Nath MCHC (RBC) [Mass/Vol] 33.9 g/dL Normal 29.9-35.2 [facility] Comment on above: Performed By: #### C BC #### [facility] [address] [place] [address] Dr. Kasia Nath MCV (RBC) [Entitic vol] 87.9 fL Normal 81.0-99.0 [facility] Comment on above: Performed By: #### C BC #### [facility] [address] [place] [address] Dr. Kasia Nath MONO # 0.8 103/ul Normal 0.3-0.8 [facility] Comment on above: Performed By: #### C BC #### [facility] [address] [address] [address] Kasia Nath Monocytes/100 WBC (Bld) 8.8 % Normal 1.7-12.0 [facility] Comment on above: Performed By: #### C BC #### [facility] [address] [address] [address] Kasia Nath NEUT # 5.6 103/ul Normal 1.4-6.5 [facility] Comment on above: Performed By: #### C BC #### [facility] [address] [place] [address] Dr. Kasia Nath Neutrophils/100 WBC (Bld) 65.4 % Normal 43.0-75.0 [facility] Comment on above: Performed By: #### C BC #### [facility] [address] [place] [address] Dr. Kasia Nath Platelet mean volume (Bld) [Entitic vol] 10.6 fL Normal 9.5-13.5 [facility] Comment on above: Performed By: #### C BC #### [facility] [address] [place] [address] Dr. Kasia Nath PLT 222 103/ul Normal 150-450 [facility] Comment on above: Performed By: #### C BC #### [facility] [address] [place] [address] Dr. Kasia Nath RBC 4.53 106/ul Normal 4.20-5.40 [facility] Comment on above: Performed By: #### C BC #### [facility] [address] [place] [address] Dr. Kasia Nath WBC 8.6 103/ul Normal 4.0-11.0 [facility] Comment on above: Performed By: #### C BC #### [facility] [address] [place] [address] Dr. Kasia Nath PROF 14(COMP METB)on 023 Albumin [Mass/Vol] 3.3 g/dL Critically low 3.4-5.0 [facility] [place] Comment on above: Performed By: #### B SEED ANALYST, CMADM, CMP #### [facility] [address] [address] [address] Kasia Nath Albumin/Globulin [Mass ratio] 0.7 {ratio} Normal [facility] Comment on above: Performed By: #### B SEED ANALYST, CMADM, CMP #### [facility] [address] [address] [address] Kasia Nath ALP [Catalytic activity/Vol] 106 U/L Normal 46-116 [facility] Comment on above: Performed By: #### B SEED ANALYST, CMADM, CMP #### [facility] [address] [address] [address] Kasia Nath ALT [Catalytic activity/Vol] 22 U/L Normal 14-59 [facility] Comment on above: Performed By: #### B SEED ANALYST, CMADM, CMP #### [facility] [address] [address] [address] Kasia Nath Anion gap [Moles/Vol] 12.0 mmol/L Normal [facility] Comment on above: Performed By: #### B SEED ANALYST, CMADM, CMP #### [facility] [address] [place] [address] Dr. Kasia Nath AST [Catalytic activity/Vol] 23 U/L Normal 15-37 [facility] Comment on above: Performed By: #### B SEED ANALYST, CMADM, CMP #### [facility] [address] [address] [address] Kasia Nath Bilirubin [Mass/Vol] 0.7 mg/dL Normal 0.2-1.0 [facility] Comment on above: Performed By: #### B SEED ANALYST, CMADM, CMP #### [facility] [address] [address] [address] Kasia Nath Calcium [Mass/Vol] 8.8 mg/dL Normal 8.5-10.1 [facility] Comment on above: Performed By: #### B SEED ANALYST, CMADM, CMP #### [facility] [address] [address] [address] Kasia Nath Chloride [Moles/Vol] 98 mmol/L Normal 98-107 [facility] Comment on above: Performed By: #### B SEED ANALYSTLEONORA, CMP #### [facility] [address] [place] [address] Dr. Kasia Nath CO2 [Moles/Vol] 30.2 mmol/L Normal 21.0-32.0 [facility] Comment on above: Performed By: #### B SEED ANALYST, MACDM, CMP #### [facility] [address] [place] [address] Dr. Kasia Nath Creatinine [Mass/Vol] 1.19 mg/dL Critically high 0.55-1.02 [facility] Comment on above: Performed By: #### B SEED ANALYST, LEONORA, CMP #### [facility] [address] [place] [address] Dr. Kasia Nath EGFR-AF [place] 53 mL/min/1.73m2 Critically low >=60 [facility] Comment on above: Performed By: #### B SEED ANALYSTMACDM, CMP #### [facility] [address] [place] [address] Dr. Kasia Nath EGFR-NON AF [place] 44 mL/min/1.73m2 Critically low >=60 [facility] Comment on above: Performed By: #### B SEED ANALYSTLEONORA, CMP #### [facility] [address] [place] [address] Dr. Kasia Nath Globulin (S) [Mass/Vol] 4.7 g/dL Normal [facility] Comment on above: Performed By: #### B SEED ANALYST, MACDM, CMP #### [facility] [address] [place] [address] Dr. Kasia Nath Glucose [Mass/Vol] 124 mg/dL Critically high 74-106 [facility] Comment on above: Performed By: #### B SEED ANALYST, MACDM, CMP #### [facility] [address] [place] [address] Dr. Kasia Nath Potassium [Moles/Vol] 3.2 mmol/L Critically low 3.5-5.1 [facility] Comment on above: Performed By: #### B SEED ANALYST, CMADM, CMP #### [facility] [address] [address] [address] Kasia Nath Protein [Mass/Vol] 8.0 g/dL Normal 6.4-8.2 [facility] Comment on above: Performed By: #### B SEED ANALYST, CMADM, CMP #### [facility] [address] [address] [address] Kasia Nath Sodium [Moles/Vol] 137 mmol/L Normal 136-145 [facility] Comment on above: Performed By: #### B SEED ANALYST, CMADM, CMP #### [facility] [address] [address] [address] Kasia Nath Urea nitrogen [Mass/Vol] 29.0 mg/dL Critically high 7.0-18.0 [facility] Comment on above: Performed By: #### B SEED ANALYST, CMADM, CMP #### [facility] [address] [address] [address] Kasia Nath Urea nitrogen/Creatinine [Mass ratio] 24.4 mg/mg Normal [facility] Comment on above: Performed By: #### B SEED ANALYST, CMADM, CMP #### [facility] [address] [address] [address] Kasia Nath TROPONIN, HIGH SENSITIVITYon 01-05-2023 HSTROP 18.4 pg/mL Normal 4.0-51.3 [facility] Comment on above: Result Comment: CUT- OFF POINTS HAVE BEEN ESTABLISHED BASED ON THE FOURTH UNIVERSAL DEFINITIONS OF MYOCARDIAL INFARCTION. THE UPPER REFERENCE LIMIT (URL) OF TROPONIN, DEFINED THE 99TH PERCENTILE OF cTnI DISTRIBUTION IN A REFERENCE POPULATION, HAS BEEN CONFIRMED THE DECISION THRESHOLD FOR MA DIAGNOSIS. Performed By: #### H STROPN ####[facility] [address] [id number]. Kasia Nath XR CHEST 1 Von 01-05-2023 [...] BIN ROJAS Date: 2023-01-05 04:39 Normal [facility] BNPon 01-02-2023 Natriuretic peptide B (Bld) [Mass/Vol] 2583.0 pg/mL Critically high <=1,800.0 [facility] Comment on above: Performed By: #### B SEED ANALYST, CMP ####[facility] [address] [place] [address]Dr. Kasia Nath CBC AUTO DIFFon 01-02-2023 BASO # 0.1 103/ul Normal 0.0-0.1 [facility] Comment on above: Performed By: #### P OCGLUC #### [facility] [address] [address] [address] Kasia Nath Basophils/100 WBC (Bld) 0.9 % Normal 0.2-2.0 [facility] Comment on above: Performed By: #### P OCGLUC #### [facility] [address] [address] [address] Kasia Nath EO # 0.2 103/ul Normal 0.0-0.7 [facility] Comment on above: Performed By: #### P OCGLUC #### [facility] [address] [address] [address] Kasia Nath Eosinophils/100 WBC (Bld) 2.3 % Normal 0.9-7.0 [facility] Comment on above: Performed By: #### P OCGLUC #### [facility] [address] [address] [address] Kasia Nath Erythrocyte distribution width (RBC) [Ratio] 13.8 % Normal 11.0-15.0 [facility] Comment on above: Performed By: #### P OCGLUC #### [facility] [address] [address] [address] Kasia Nath Hematocrit (Bld) [Volume fraction] 35.5 % Critically low 36.0-48.0 [facility] Comment on above: Performed By: #### P OCGLUC #### [facility] [address] [address] [address] Kasia Nath Hemoglobin (Bld) [Mass/Vol] 11.6 g/dL Critically low 12.0-16.0 [facility] Comment on above: Performed By: #### P OCGLUC #### [facility] [address] [address] [address] Kasia Nath IG # 0.02 10e3/ul Normal 0.00-0.03 [facility] Comment on above: Performed By: #### P OCGLUC #### [facility] [address] [address] [address] Kasia Nath IG % 0.3 % Normal 0.0-0.5 [facility] Comment on above: Performed By: #### P OCGLUC #### [facility] [address] [address] [address] Kasia Nath LYMPH # 2.0 103/ul Normal 1.2-3.8 [facility] Comment on above: Performed By: #### P OCGLUC #### [facility] [address] [address] [address] Kasia Nath Lymphocytes/100 WBC (Bld) 24.8 % Normal 20.5-60.0 [facility] Comment on above: Performed By: #### P OCGLUC #### [facility] [address] [address] [address] Kasia Nath MANUAL DIFF REQ NO Normal [facility] Comment on above: Performed By: #### P OCGLUC #### [facility] [address] [place] [address] Dr. Kasia Nath MCH (RBC) [Entitic mass] 28.7 pg Normal 26.7-34.0 [facility] Comment on above: Performed By: #### P OCGLUC #### [facility] [address] [address] [address] Kasia Nath MCHC (RBC) [Mass/Vol] 32.7 g/dL Normal 29.9-35.2 [facility] Comment on above: Performed By: #### P OCGLUC #### [facility] [address] [place] [address] Dr. Kasia Nath MCV (RBC) [Entitic vol] 87.9 fL Normal 81.0-99.0 [facility] Comment on above: Performed By: #### P OCGLUC #### [facility] [address] [place] [address] Dr. Kasia Nath MONO # 0.8 103/ul Normal 0.3-0.8 [facility] Comment on above: Performed By: #### P OCGLUC #### [facility] [address] [place] [address] Dr. Kasia Nath Monocytes/100 WBC (Bld) 9.6 % Normal 1.7-12.0 [facility] Comment on above: Performed By: #### P OCGLUC #### [facility] [address] [place] [address] Dr. Kasia Nath NEUT # 5.0 103/ul Normal 1.4-6.5 [facility] Comment on above: Performed By: #### P OCGLUC #### [facility] [address] [place] [address] Dr. Kasia Nath Neutrophils/100 WBC (Bld) 62.1 % Normal 43.0-75.0 [facility] Comment on above: Performed By: #### P OCGLUC #### [facility] [address] [place] [address] Dr. Kasia Nath Platelet mean volume (Bld) [Entitic vol] 10.7 fL Normal 9.5-13.5 [facility] Comment on above: Performed By: #### P OCGLUC #### [facility] [address] [place] [address] Dr. Kasia Nath PLT 204 103/ul Normal 150-450 [facility] Comment on above: Performed By: #### P OCGLUC #### [facility] [address] [address] [address] Kasia Nath RBC 4.04 106/ul Critically low 4.20-5.40 [facility] Comment on above: Performed By: #### P OCGLUC #### [facility] [address] [address] [address] Kasia Nath WBC 8.0 103/ul Normal 4.0-11.0 [facility] Comment on above: Performed By: #### P OCGLUC #### [facility] [address] [address] [address] Kasia Nath GLYCOHEMOGLOBIN A1Con 2022 ADA RECOMMENDATION SEE BELOW Normal [facility] Comment on above: Result Comment: ADA RECOMMENDED LIMIT 4.0 - 6.0 ADA THERAPEUTIC TARGET < 7.0 ACTION SUGGESTED > 7.0 Performed By: #### A 1C ####[facility] [address] [address]Dr. Kasia Nath Glucose [Mass/Vol] 298 mg/dL Normal [facility] Comment on above: Performed By: #### A 1C ####[facility] [address] [place] [address]Dr. Kasia Nath HbA1c (Bld) [Mass fraction] 12.0 % Critically high 4.5-6.2 [facility] Comment on above: Performed By: #### A 1C ####[facility] [address] [place] [address]Dr. Kasia Nath POINT OF CARE GLUCOSEon 12-14 Glucose [Mass/Vol] 214 mg/dL Critically high 74-106 [facility] Comment on above: Performed By: #### C BC #### [facility] [address] [address] [address] Kasia Nath Glucose [Mass/Vol] 227 mg/dL Critically high 74-106 [facility] Comment on above: Performed By: #### C BC #### [facility] [address] [address] [address] Kasia Nath PROF 14(COMP METB)on 023 Albumin [Mass/Vol] 2.6 g/dL Critically low 3.4-5.0 [facility] e [facility] Comment on above: Performed By: #### B SEED ANALYST, CMP ####[facility] [address] [place] [address]Dr. Kasia Nath Albumin/Globulin [Mass ratio] 0.6 {ratio} Normal [facility] Comment on above: Performed By: #### B SEED ANALYST, CMP ####[facility] [address] [place] [address]Dr. Kasia Nath ALP [Catalytic activity/Vol] 94 U/L Normal 46-116 [facility] Comment on above: Performed By: #### B SEED ANALYST, CMP ####[facility] [address] [place], [place] [address]Dr. Kasia Nath ALT [Catalytic activity/Vol] 16 U/L Normal 14-59 [facility] Comment on above: Performed By: #### B SEED ANALYST, CMP ####[facility] [address] [place], [place] [address]Dr. Kasia Nath Anion gap [Moles/Vol] 10.6 mmol/L Normal [facility] Comment on above: Performed By: #### B SEED ANALYST, CMP ####[facility] [address] [place], [place] [address]Dr. Kasia Nath AST [Catalytic activity/Vol] 15 U/L Normal 15-37 [facility] Comment on above: Performed By: #### B SEED ANALYST, CMP ####[facility] [address] [place], [place] [address]Dr. Kasia Nath Bilirubin [Mass/Vol] 0.8 mg/dL Normal 0.2-1.0 [facility] Comment on above: Performed By: #### B SEED ANALYST, CMP ####[facility] [address] [place], [place] [address]Dr. Kasia Nath Calcium [Mass/Vol] 8.5 mg/dL Normal 8.5-10.1 [facility] Comment on above: Performed By: #### B SEED ANALYST, CMP ####[facility] [address] [place] [address]Dr. Kasia Nath Chloride [Moles/Vol] 102 mmol/L Normal 98-107 [facility] Comment on above: Performed By: #### B SEED ANALYST, CMP ####[facility] [address] [place], [place] [address]Dr. Kasia Nath CO2 [Moles/Vol] 30.2 mmol/L Normal 21.0-32.0 [facility] Comment on above: Performed By: #### B SEED ANALYST, CMP ####[facility] [address] [place], [place] [address]Dr. Kasia Nath Creatinine [Mass/Vol] 0.94 mg/dL Normal 0.55-1.02 [facility] Comment on above: Performed By: #### B SEED ANALYST, CMP ####[facility] [address] [place], [place] [address]Dr. Kasia Nath EGFR-AF [place] >60 Normal >=60 [facility] Comment on above: Performed By: #### B SEED ANALYST, CMP ####[facility] [address] [place], [place] [address]Dr. Kasia Nath EGFR-NON AF [place] 58 mL/min/1.73m2 Critically low >=60 [facility] Comment on above: Performed By: #### B SEED ANALYST, CMP ####[facility] [address] [place], [place] [address]Dr. Kasia Nath Globulin (S) [Mass/Vol] 4.0 g/dL Normal [facility] Comment on above: Performed By: #### B SEED ANALYST, CMP ####[facility] [address] [place], [place] [address]Dr. Kasia Nath Glucose [Mass/Vol] 150 mg/dL Critically high 74-106 [facility] Comment on above: Performed By: #### B SEED ANALYST, CMP ####[facility] [address] [place], [place] [address]Dr. Kasia Nath Potassium [Moles/Vol] 3.8 mmol/L Normal 3.5-5.1 [facility] Comment on above: Performed By: #### B SEED ANALYST, CMP ####[facility] [id number] [id number]. Kasia Nath Protein [Mass/Vol] 6.6 g/dL Normal 6.4-8.2 [facility] Comment on above: Performed By: #### B SEED ANALYST, CMP ####[facility] [address] [id number]. Kasia Nath Sodium [Moles/Vol] 139 mmol/L Normal 136-145 [facility] Comment on above: Performed By: #### B SEED ANALYST, CMP ####[facility] [address] [id number]. Kasia Nath Urea nitrogen [Mass/Vol] 24.0 mg/dL Critically high 7.0-18.0 [facility] Comment on above: Performed By: #### B SEED ANALYST, CMP ####[facility] [address] [address]Dr. Kasia Nath Urea nitrogen/Creatinine [Mass ratio] 25.5 mg/mg Normal [facility] Comment on above: Performed By: #### B SEED ANALYST, CMP ####[facility] [address] [address]Dr. Kasia Nath BNPon 01-01-2023 Natriuretic peptide B (Bld) [Mass/Vol] 1419.0 pg/mL Normal <=1,800.0 [facility] Comment on above: Performed By: #### B SEED ANALYST #### [facility] [address] [place] [address] Dr. Kasia Nath CARDIAC EMERY 3-6on 3 CK [Catalytic activity/Vol] 73 U/L Normal 26-192 [facility] Comment on above: Performed By: #### P OCGLUC #### [facility] [address] [address] [address] Kasia Nath CK [Catalytic activity/Vol] 80 U/L Normal 26-192 [facility] Comment on above: Performed By: #### P OCGLUC #### [facility] [address] [address] [address] Kasia Nath CK.MB [Mass/Vol] 1.71 ng/mL Normal <=3.60 [facility] Comment on above: Performed By: #### P OCGLUC #### [facility] [address] [place] [address] Dr. Kasia Nath CK.MB [Mass/Vol] 1.85 ng/mL Normal <=3.60 [facility] Comment on above: Performed By: #### P OCGLUC #### [facility] [address] [address] [address] Kasia Nath HSTROP 13.6 pg/mL Normal 4.0-51.3 [facility] Comment on above: Result Comment: CUT- OFF POINTS HAVE BEEN ESTABLISHED BASED ON THE FOURTH UNIVERSAL DEFINITIONS OF MYOCARDIAL INFARCTION. THE UPPER REFERENCE LIMIT (URL) OF TROPONIN, DEFINED THE 99TH PERCENTILE OF cTnI DISTRIBUTION IN A REFERENCE POPULATION, HAS BEEN CONFIRMED THE DECISION THRESHOLD FOR MA DIAGNOSIS. Performed By: #### P OCGLUC #### [facility] [address] [place] [address] Dr. Kasia Nath HSTROP 13.2 pg/mL Normal 4.0-51.3 [facility] Comment on above: Result Comment: CUT- OFF POINTS HAVE BEEN ESTABLISHED BASED ON THE FOURTH UNIVERSAL DEFINITIONS OF MYOCARDIAL INFARCTION. THE UPPER REFERENCE LIMIT (URL) OF TROPONIN, DEFINED THE 99TH PERCENTILE OF cTnI DISTRIBUTION IN A REFERENCE POPULATION, HAS BEEN CONFIRMED THE DECISION THRESHOLD FOR MA DIAGNOSIS. Performed By: #### P OCGLUC #### [facility] [address] [place] [address] Dr. Kasia Nath CARDIAC EMERY ADMITon 023 CK [Catalytic activity/Vol] 71 U/L Normal 26-192 [facility] Comment on above: Performed By: #### C BC #### [facility] [address] [address] [address] Kasia Nath CK.MB [Mass/Vol] 1.69 ng/mL Normal <=3.60 [facility] Comment on above: Performed By: #### C BC #### [facility] [address] [place] [address] Dr. Kasia Nath HSTROP 13.0 pg/mL Normal 4.0-51.3 [facility] Comment on above: Result Comment: CUT- OFF POINTS HAVE BEEN ESTABLISHED BASED ON THE FOURTH UNIVERSAL DEFINITIONS OF MYOCARDIAL INFARCTION. THE UPPER REFERENCE LIMIT (URL) OF TROPONIN, DEFINED THE 99TH PERCENTILE OF cTnI DISTRIBUTION IN A REFERENCE POPULATION, HAS BEEN CONFIRMED THE DECISION THRESHOLD FOR MA DIAGNOSIS. Performed By: #### C BC #### [facility] [address] [place] [address] Dr. Kasia Nath GRETTA 75 ng/mL Normal 9-82 [facility] Comment on above: Performed By: #### C BC #### [facility] [address] [place] [address] Dr. Kasia Nath CBC AUTO DIFFon 01-01-2023 BASO # 0.1 103/ul Normal 0.0-0.1 [facility] Comment on above: Performed By: #### C BC #### [facility] [address] [place] [address] Dr. Kasia Nath Basophils/100 WBC (Bld) 1.1 % Normal 0.2-2.0 [facility] Comment on above: Performed By: #### C BC #### [facility] [address] [place] [address] Dr. Kasia Nath EO # 0.2 103/ul Normal 0.0-0.7 [facility] Comment on above: Performed By: #### C BC #### [facility] [address] [place] [address] Dr. Kasia Nath Eosinophils/100 WBC (Bld) 2.9 % Normal 0.9-7.0 [facility] Comment on above: Performed By: #### C BC #### [facility] [address] [place] [address] Dr. Kasia Nath Erythrocyte distribution width (RBC) [Ratio] 13.8 % Normal 11.0-15.0 [facility] Comment on above: Performed By: #### C BC #### [facility] [address] [place] [address] Dr. Kasia Nath Hematocrit (Bld) [Volume fraction] 36.2 % Normal 36.0-48.0 [facility] Comment on above: Performed By: #### C BC #### [facility] [address] [address] [address] Kasia Nath Hemoglobin (Bld) [Mass/Vol] 12.1 g/dL Normal 12.0-16.0 [facility] Comment on above: Performed By: #### C BC #### [facility] [address] [place] [address] Dr. Kasia Nath IG # 0.02 10e3/ul Normal 0.00-0.03 [facility] Comment on above: Performed By: #### C BC #### [facility] [address] [place] [address] Dr. Kasia Nath IG % 0.3 % Normal 0.0-0.5 [facility] Comment on above: Performed By: #### C BC #### [facility] [address] [place] [address] Dr. Kasia Nath LYMPH # 1.5 103/ul Normal 1.2-3.8 [facility] Comment on above: Performed By: #### C BC #### [facility] [address] [place] [address] Dr. Kasia Nath Lymphocytes/100 WBC (Bld) 19.9 % Critically low 20.5-60.0 [facility] Comment on above: Performed By: #### C BC #### [facility] [address] [place] [address] Dr. Kasia Nath MANUAL DIFF REQ NO Normal [facility] Comment on above: Performed By: #### C BC #### [facility] [address] [place] [address] Dr. Kasia Nath MCH (RBC) [Entitic mass] 29.7 pg Normal 26.7-34.0 [facility] Comment on above: Performed By: #### C BC #### [facility] [address] [place] [address] Dr. Kasia Nath MCHC (RBC) [Mass/Vol] 33.4 g/dL Normal 29.9-35.2 [facility] Comment on above: Performed By: #### C BC #### [facility] [address] [address] [address] Kasia Nath MCV (RBC) [Entitic vol] 88.9 fL Normal 81.0-99.0 [facility] Comment on above: Performed By: #### C BC #### [facility] [address] [place] [address] Dr. Kasia Nath MONO # 0.6 103/ul Normal 0.3-0.8 [facility] Comment on above: Performed By: #### C BC #### [facility] [address] [place] [address] Dr. Kasia Nath Monocytes/100 WBC (Bld) 8.0 % Normal 1.7-12.0 [facility] Comment on above: Performed By: #### C BC #### [facility] [address] [place] [address] Dr. Kasia Nath NEUT # 5.1 103/ul Normal 1.4-6.5 [facility] Comment on above: Performed By: #### C BC #### [facility] [address] [place] [address] Dr. Kasia Nath Neutrophils/100 WBC (Bld) 67.8 % Normal 43.0-75.0 [facility] Comment on above: Performed By: #### C BC #### [facility] [address] [place] [address] Dr. Kasia Nath Platelet mean volume (Bld) [Entitic vol] 10.4 fL Normal 9.5-13.5 [facility] Comment on above: Performed By: #### C BC #### [facility] [address] [place] [address] Dr. Kasia Nath PLT 200 103/ul Normal 150-450 [facility] Comment on above: Performed By: #### C BC #### [facility] [address] [place], [place] [id number] Dr. Kasia Nath RBC 4.07 106/ul Critically low 4.20-5.40 [facility] Comment on above: Performed By: #### C BC #### [facility] [address] [place] [address] Dr. Kasia Nath WBC 7.5 103/ul Normal 4.0-11.0 [facility] Comment on above: Performed By: #### C #### [facility] [id number] Kasia Nath [address] CHEST WO CONon [...] two extremes (Agatston score 101-1000). https://pubs.rsna.org /doi/abs/10.1148/radi [email or web address] Electronically authenticated by: RENETTA WALLACE Date: 2023-01-01 14:55 Normal [facility] Covid-19 PCR (CVDTB)on 12-14 SARS-CoV-2 (COVID-19) RNA FERN+probe Ql (Unsp spec) Not detected Normal NOT DETECTED [facility] Comment on above: Result Comment: When [...] for this test is supported by the [place] of Health and Human Service's declaration that [...] longer be used). Performed By: #### [facility] #### [facility] [address] [place] [address] Dr. Kasia Nath ECHO LIMITED STUDYon 023 ECHO LIMITED STUDY Patient: SAIMA CALL Exam Date: 01/01/2023 : 1945 Gender:F Ordering : LD GUERRERO . Admission #: [id number] Family : Order #: [id number] CLICK HERE TO VIEW EXAM ECHOCARDIOGRAM REPORT [...] Medrano M.D. on 01/01/2023 at 13:19 Normal [facility] GLYCOHEMOGLOBIN A1Con 2022 ADA RECOMMENDATION SEE BELOW Normal [facility] Comment on above: Result Comment: ADA RECOMMENDED LIMIT 4.0 - 6.0 ADA THERAPEUTIC TARGET < 7.0 ACTION SUGGESTED > 7.0 Performed By: #### P OCGLUC #### [facility] [address] [address] [address] Kasia Nath Glucose [Mass/Vol] 318 mg/dL Normal [facility] Comment on above: Performed By: #### P OCGLUC #### [facility] [address] [address] [address] Kasia Nath HbA1c (Bld) [Mass fraction] 12.7 % Critically high 4.5-6.2 [facility] Comment on above: Performed By: #### P OCGLUC #### [facility] [address] [address] [address] Kasia Nath POINT OF CARE GLUCOSEon 12-14 Glucose [Mass/Vol] 248 mg/dL Critically high -106 [facility] Comment on above: Performed By: #### P OCGLUC #### [facility] [address] [address] [address] Kasia Nath Glucose [Mass/Vol] 213 mg/dL Critically high 74-106 [facility] Comment on above: Performed By: #### P OCGLUC ####[facility] [address] [place], [place] [address]EeDr. Kasia Nath Glucose [Mass/Vol] 162 mg/dL Critically high 74-106 [facility] Comment on above: Performed By: #### P OCGLUC ####[facility] [address] [id number]. Kasia Nath PROF CHEM 8 (BAS METB)on Anion gap [Moles/Vol] 11.8 mmol/L Normal [facility] Comment on above: Performed By: #### C BC #### [facility] [address] [address] [address] Kasia Nath Calcium [Mass/Vol] 8.4 mg/dL Critically low 8.5-10.1 [facility] Comment on above: Performed By: #### C BC #### [facility] [address] [address] [address] Kasia Nath Chloride [Moles/Vol] 102 mmol/L Normal 98-107 [facility] Comment on above: Performed By: #### C BC #### [facility] [address] [address] [address] Kasia Nath CO2 [Moles/Vol] 28.4 mmol/L Normal 21.0-32.0 [facility] Comment on above: Performed By: #### C BC #### [facility] [address] [address] [address] Kasia Nath Creatinine [Mass/Vol] 1.09 mg/dL Critically high 0.55-1.02 [facility] Comment on above: Performed By: #### C BC #### [facility] [address] [address] [address] Kasia Nath EGFR-AF [place] 59 mL/min/1.73m2 Critically low >=60 [facility] Comment on above: Performed By: #### C BC #### [facility] [address] [address] [address] Kasia Nath EGFR-NON AF [place] 49 mL/min/1.73m2 Critically low >=60 [facility] Comment on above: Performed By: #### C BC #### [facility] [address] [address] [address] Kasia Nath Glucose [Mass/Vol] 247 mg/dL Critically high 74-106 [facility] Comment on above: Performed By: #### C BC #### [facility] [address] [address] [address] Kasia Nath Potassium [Moles/Vol] 4.2 mmol/L Normal 3.5-5.1 [facility] Comment on above: Performed By: #### C BC #### [facility] [address] [address] [address] Kasia Nath Sodium [Moles/Vol] 138 mmol/L Normal 136-145 [facility] Comment on above: Performed By: #### C BC #### [facility] [address] [address] [address] Kasia Nath Urea nitrogen [Mass/Vol] 28.0 mg/dL Critically high 7.0-18.0 [facility] Comment on above: Performed By: #### C BC #### [facility] [address] [place], [place] [id number] Dr. Kasia Nath Urea nitrogen/Creatinine [Mass ratio] 25.7 mg/mg Normal [facility] Comment on above: Performed By: #### C BC #### [facility] [address] [place], [place] [id number] Dr. Kasia Nath XR CHEST 1 Von [...] by: Miranda ALVAREZ Date: 2023-01-01 05:38 Normal [facility] ECHOCARDIO M/2D COMPLETEon 1 11-15-2021 ECHOCARDIO M/2D COMPLETE Patient: JOE CALL Exam Date: 09/15/2022 : 1945 Gender:F Ordering : [facility] Admission #: [id number] Family : DR SHANTEL STEVEN M.D. Order #: [id number] CLICK HERE TO VIEW EXAM ECHOCARDIOGRAM REPORT [...] M.D. on 09/15/2022 at 18:17 Normal [facility] GI PANEL (PCR)on 05-02-2022 Adenovirus F 40/41 Not detected Normal NOT DETECTED [facility] [place] Comment on above: Performed By: #### P OCGLUC #### [facility] [address] [place] [address] Dr. Kasia Nath Astrovirus Not detected Normal NOT DETECTED [facility] Comment on above: Performed By: #### P OCGLUC #### [facility] [address] [address] [address] Kasia Nath C. Diff toxin A/B Not detected Normal NOT DETECTED [facility] Comment on above: Performed By: #### P OCGLUC #### [facility] [address] [address] [address] Kasia Nath Campylobacter Not detected Normal NOT DETECTED [facility] Comment on above: Performed By: #### P OCGLUC #### [facility] [address] [address] [address] Kasia Nath Cryptosporidium Not detected Normal NOT DETECTED [facility] Comment on above: Performed By: #### P OCGLUC #### [facility] [address] [address] [address] Kasia Nath Cyclos. Cayetanensis Not detected Normal NOT DETECTED [facility] Comment on above: Performed By: #### P OCGLUC #### [facility] [address] [address] [address] Kasia Nath E. Coli O157 Not Applicable Normal Not Applicable [facility] Comment on above: Performed By: #### P OCGLUC #### [facility] [address] [place] [address] Dr. Kasia Nath E. histolytica Not detected Normal NOT DETECTED [facility] Comment on above: Performed By: #### P OCGLUC #### [facility] [address] [address] [address] Kasia Nath EAEC Not detected Normal NOT DETECTED [facility] Comment on above: Performed By: #### P OCGLUC #### [facility] [address] [place] [address] Dr. Kasia Nath EIEC Not detected Normal NOT DETECTED [facility] Comment on above: Performed By: #### P OCGLUC #### [facility] [address] [place] [address] Dr. Kasia Nath EPEC Detected Abnormal NOT DETECTED [facility] Comment on above: Performed By: #### P OCGLUC #### [facility] [address] [place] [address] Dr. Kasia Nath ETEC Not detected Normal NOT DETECTED [facility] Comment on above: Performed By: #### P OCGLUC #### [facility] [address] [address] [address] Kasia Ewing Not detected Normal NOT DETECTED [facility] Comment on above: Performed By: #### P OCGLUC #### [facility] [address] [address] [address] Kasia KHAN CONTROLS PASSED Normal [facility] Comment on above: Performed By: #### P OCGLUC #### [facility] [address] [address] [address] Kasia FRAIRE HEADER GI PANEL BACTERIA Normal [facility] Comment on above: Performed By: #### P OCGLUC #### [facility] [address] [place] [address] Dr. Kasia GE ECOLI GI PANEL DIARRHEAGENIC E.COLI / SHIGELLA Normal [facility] Comment on above: Performed By: #### P OCGLUC #### [facility] [address] [place] [address] Dr. Kasia GE INFO SEE BELOW [facility] Comment on above: Result Comment: EAEC - Enteroaggregative E. Coli EPEC- Enteropathogenic E. Coli ETEC- Enterotoxigenic E. Coli lt/st STEC- Shigella-like toxin-producing E. Coli stx1/stx2 EIEC- Shigella/Enteroinvasive E. Coli Performed By: #### P OCGLUC #### [facility] [address] [place] [address] Dr. Kasia GE PARASITES GI PANEL PARASITES Normal [facility] Comment on above: Performed By: #### P OCGLUC #### [facility] [address] [address] [address] Kasia GE VIRUS GI PANEL VIRUSES Normal [facility] Comment on above: Performed By: #### P OCGLUC #### [facility] [address] [place] [address] Dr. Kasia Nath Norovirus GI/GII Not detected Normal NOT DETECTED [facility] Comment on above: Performed By: #### P OCGLUC #### [facility] [address] [place] [address] Dr. Kasia Garland. Shigelloides Not detected Normal NOT DETECTED [facility] Comment on above: Performed By: #### P OCGLUC #### [facility] [address] [place] [address] Dr. Kasia Nath Rotavirus A Not detected Normal NOT DETECTED [facility] Comment on above: Performed By: #### P OCGLUC #### [facility] [address] [place] [address] Dr. Kasia Nath Salmonella Not detected Normal NOT DETECTED [facility] Comment on above: Performed By: #### P OCGLUC #### [facility] [address] [place] [address] Dr. Kasia Nath Sapovirus Not detected Normal NOT DETECTED [facility] Comment on above: Performed By: #### P OCGLUC #### [facility] [address] [place] [address] Dr. Kasia Nath STEC Not detected Normal NOT DETECTED [facility] Comment on above: Performed By: #### P OCGLUC #### [facility] [address] [place] [address] Dr. Kasia Nath Vibrio Not detected Normal NOT DETECTED [facility] Comment on above: Performed By: #### P OCGLUC #### [facility] [address] [place] [address] Dr. Kasia Nath Vibrio Cholera Not detected Normal NOT DETECTED [facility] Comment on above: Performed By: #### P OCGLUC #### [facility] [address] [place] [address] Dr. Kasia Nath Y. Enterocolitica Not detected Normal NOT DETECTED [facility] Comment on above: Performed By: #### P OCGLUC #### [facility] [address] [place] [address] Dr. Kasia Nath OCC BLD IMMUNO SCREENon -2 OCCULT BLOOD Negative Normal NEGATIVE [facility] Comment on above: Performed By: #### C BC #### [facility] [address] [address] [address] Kasia Nath XR knee BI 4Von 08-25-2021 XR knee BI 4V [facility] [employer] Other XR knee BI 4V [facility] [employer] Other XR knee BI 4V [address] [place] [address] [employer] Other XR knee BI 4V [address] [employer] Other XR knee BI 4V XRay Report [facility] [employer] Other XR knee BI 4V Signed [employer] Other XR knee BI 4V Patient: Joe Call MR#: [id number] [place] [employer] Other XR knee BI 4V 0 [employer] Other XR knee BI 4V : 1945 Acct:[id number] [place] [employer] Other XR knee BI 4V Age/Sex: 76 / F ADM Date: 08/25/21 [employer] Other XR knee BI 4V Loc: SOX Room: Type : [facility] [employer] Other XR knee BI 4V Attending Dr: Akbar Cui II, MD [employer] Other XR knee BI 4V Ordering Provider: Akbar Cui MD [employer] Other XR knee BI 4V Date of Service: 08/25/21 [employer] Other XR knee BI 4V XR/XR knee BI 4V: Pain in right knee;Pain in left knee [employer] Other XR knee BI 4V Copies to: Akbar Cui MD [employer] Other XR knee BI 4V XR knee BI 4V 08/25/2021 1:32 PM [employer] Other XR knee BI 4V SIGNS AND SYMPTOMS: Bilateral knee pain with decreased range of motion, weakness [employer] Other XR knee BI 4V PROTOCOL: Frontal, lateral, and sunrise views of the bilateral knees [employer] Other XR knee BI 4V COMPARISON: None [employer] Other XR knee BI 4V FINDINGS: [employer] Other XR knee BI 4V There is mild narrowing of the medial weightbearing joint spaces. There is mild patellofemoral [employer] Other XR knee BI 4V joint space loss. There is spurring of the poles of the patella bilaterally. There is mild lateral [employer] Other XR knee BI 4V patellar subluxation bilaterally. There is no evidence of acute displaced fracture. Well-corticated [employer] Other XR knee BI 4V ossific structures o r separate from the right medial weightbearing joint space. This may represent a [employer] Other XR knee BI 4V calcified loose bodies. [employer] Other XR knee BI 4V XR/XR knee BI 4V [employer] Other XR knee BI 4V IMPRESSION: [employer] [facility] [employer] Other XR knee BI 4V Degenerative changes are noted are noted bilaterally, as above. [employer] Other XR knee BI 4V Well-corticated ossific structures or separate from the right medial weightbearing joint space. This [employer] Other XR knee BI 4V may represent a calcified loose bodies. [employer] Other XR knee BI 4V No acute displaced fracture. [employer] Other XR knee BI 4V There is mild latera l subluxation of the patella within the patellofemoral joint space bilaterally. [employer] Other XR knee BI 4V Impression dictated by: Emery Lobo M.D.08/25/2021 2:51 PM [employer] Other XR knee BI 4V Dictation Location: [place] [address] [employer] Other XR knee BI 4V Transcribed By: [facility] 08/25/21 [facility] [employer] Other XR knee BI 4V Dictated By: Emery Lobo II, MD 08/25/21 [facility] [employer] Other XR knee BI 4V Signed By: [employer] Other XR knee BI 4V 08/25/21 [facility] [employer] Other XR pelvis 1-2Von 08-25-2021 XR pelvis 1-2V XR/XR pelvis 1-2V: Pain in right knee;Pain in left knee [employer] Other XR pelvis 1-2V XR pelvis 1-2V 08/25/2021 1:32 PM [employer] Other XR pelvis 1-2V SIGNS AND SYMPTOMS: Bilateral generalized knee pain, limited range of motion with weakness [employer] Other XR pelvis 1-2V PROTOCOL: Frontal radiograph of the pelvis [employer] Other XR pelvis 1-2V There is mild narrowing of the weightbearing joint spaces. Mild degenerative changes are noted in [employer] Other XR pelvis 1-2V the symphysis pubis. There is no evidence of fracture or dislocation. Vascular calcifications are [employer] Other XR pelvis 1-2V present in the pelvis. [employer] Other XR pelvis 1-2V XR/XR pelvis 1-2V [employer] Other XR pelvis 1-2V No fracture or dislocation. [employer] Other XR pelvis 1-2V Mild degenerative changes are noted in the joint space of the hips. [employer] Other XR pelvis 1-2V Impression dictated by: Emery Lobo M.D.08/25/2021 2:54 PM [employer] Other XR pelvis 1-2V Transcribed By: [facility] 08/25/21 [facility] [employer] Other XR pelvis 1-2V Dictated By: Emery Lobo II, MD 08/25/21 [facility] [employer] Other XR pelvis 1-2V 08/25/21 [facility] [employer] Other Social History Date Type Detail Facility Start: 08-04-2022 End: 01-18-2024 Tobacco smoking status Ex-smoker (finding) General [facility] [place] Start: 1945 Sex Assigned At Female F [facility] Sex Assigned At [employer] Other Tobacco smoking status Never Gener al Surgery [facility] Vital Signs Date Time Vital Sign Value Performing Clinician Facility 04-03-2024 11:29-0400 Body height 165.1 cm MD Shantel Steven Work Phone: [facility] 04-03-2024 11:29-0400 Body mass index (BMI) [Ratio] 43.7 kg/m2 MD Shantel Steven Work Phone: [facility] 04-03-2024 11:29-0400 Body weight 119.29 kg MD Shantel Steven Work Phone: [facility] 04-03-2024 11:29-0400 Diastolic blood pressure 71 mm[Hg] MD Shantel Steven Work Phone: [facility] 04-03-2024 11:29-0400 Heart rate 56 /min MD Shantel Steven Work Phone: [facility] 04-03-2024 11:29-0400 Systolic blood pressure 116 mm[Hg] MD Shantel Steven Work Phone: [facility] 03-25-2024 15:15-0400 Body height 165.1 cm MD Shantel Steven Work Phone: [facility] 03-25-2024 15:15-0400 Body mass index (BMI) [Ratio] 43.9 kg/m2 MD Shantel Steven Work Phone: [facility] 03-25-2024 15:15-0400 Body weight 119.74 kg MD Shantel Steven Work Phone: [facility] 03-25-2024 15:15-0400 Diastolic blood pressure 87 mm[Hg] MD Shantel Steven Work Phone: [facility] 03-25-2024 15:15-0400 Heart rate 66 /min MD Shantel Steven Work Phone: [facility] 03-25-2024 15:15-0400 Systolic blood pressure 125 mm[Hg] MD Shantel Steven Work Phone: [facility] 02-15-2024 14:18-0400 Body height 165.1 cm [facility] 02-15-2024 14:18-0400 Body mass index (BMI) [Ratio] 38.6 kg/m2 [facility] 02-15-2024 14:18-0400 Body weight 105.23 kg [facility] 02-15-2024 14:18-0400 Diastolic blood pressure 66 mm[Hg] [facility] 02-15-2024 14:18-0400 Heart rate 55 /min [facility] 02-15-2024 14:18-0400 Systolic blood pressure 114 mm[Hg] [facility] 01-18-2024 10:23-0500 Body height 165.1 cm [facility] 01-18-2024 10:23-0500 Body mass index (BMI) [Ratio] 43.2 kg/m2 [facility] 01-18-2024 10:23-0500 Body weight 117.93 kg [facility] 01-18-2024 10:23-0500 Diastolic blood pressure 70 mm[Hg] [facility] 01-18-2024 10:23-0500 Heart rate 98 /min [facility] 01-18-2024 10:23-0500 SaO2% (BldA) [Mass fraction] 65 % [facility] 01-18-2024 10:23-0500 Systolic blood pressure 110 mm[Hg] [facility] 10-23-2023 16:00-0500 Body height 165.1 cm Azghassan Kochs Other [facility] [employer] Other 10-23-2023 16:00-0500 Body mass index (BMI) [Ratio] 44.63 kg/m2 Azghassan Kochs Other [employer] Other 10-23-2023 16:00-0500 Body temperature 96.8 [degF] Aziz Bakhous Other [employer] Other 10-23-2023 16:00-0500 Body weight 121.66 kg Aziz Bakhous Other [employer] Other 10-23-2023 16:00-0500 Diastolic blood pressure 60 mm[Hg] Aziz Bakhous Other [employer] Other 10-23-2023 16:00-0500 Respiratory rate 18 /min Aziz Bakhous Other [employer] Other 10-23-2023 16:00-0500 SaO2% (BldA) [Mass fraction] 99 % Aziz Bakhous Other [employer] Other 10-23-2023 16:00-0500 Systolic blood pressure 124 mm[Hg] Jaleesa Vanessa Other [employer] Other 10-18-2023 13:45-0500 Body height 165.1 cm Shantel Steven Other [employer] Other 10-18-2023 13:45-0500 Body mass index (BMI) [Ratio] 44.86 kg/m2 Shantel Steven Other [employer] Other 10-18-2023 13:45-0500 Body temperature 97.3 [degF] Shantel Steven Other [employer] Other 10-18-2023 13:45-0500 Body weight 122.29 kg Shantel Steven Other [employer] Other 10-18-2023 13:45-0500 Diastolic blood pressure 84 mm[Hg] Shantel Steven Other [employer] Other 10-18-2023 13:45-0500 SaO2% (BldA) [Mass fraction] 97 % Sahntel Steven Other [employer] Other 10-18-2023 13:45-0500 Systolic blood pressure 132 mm[Hg] Shantel Steven Other [employer] Other 09-04-2023 14:00-0400 Body height 165.1 cm Shantel Steven Other [employer] Other 09-04-2023 14:00-0400 Body mass index (BMI) [Ratio] 43.06 kg/m2 Shantel Steven Other [employer] Other 09-04-2023 14:00-0400 Body weight 117.39 kg Shantel Steven Other [employer] Other 09-04-2023 14:00-0400 Diastolic blood pressure 69 mm[Hg] Shantel Steven Other [employer] Other 09-04-2023 14:00-0400 Systolic blood pressure 127 mm[Hg] Shantel Steven Other [employer] Other 07-17-2023 10:00-0400 Body height 165.1 cm Shantel Steven Other [employer] Other 07-17-2023 10:00-0400 Body mass index (BMI) [Ratio] 43.03 kg/m2 Shantel Steven Other [employer] Other 07-17-2023 10:00-0400 Body weight 117.3 kg Shantel Steven Other [employer] Other 07-17-2023 10:00-0400 Diastolic blood pressure 76 mm[Hg] Shantel Steven Other [employer] Other 07-17-2023 10:00-0400 Systolic blood pressure 164 mm[Hg] Shantel Steven Other [employer] Other 04-30-2023 14:30-0400 Body height 165.1 cm Shantel Steven Other [employer] Other 04-30-2023 14:30-0400 Body mass index (BMI) [Ratio] 43.43 kg/m2 Shantel Steven Other [employer] Other 04-30-2023 14:30-0400 Body weight 118.39 kg Shantel Steven Other [employer] Other 04-30-2023 14:30-0400 Diastolic blood pressure 75 mm[Hg] Shantel Steven Other [employer] Other 04-30-2023 14:30-0400 Systolic blood pressure 135 mm[Hg] Shantel Steven Other [employer] Other 03-09-2023 12:15-0400 Body height 165.1 cm Shantel Steven Other [employer] Other 03-09-2023 12:15-0400 Body mass index (BMI) [Ratio] 43.59 kg/m2 Shantel Steven Other [employer] Other 03-09-2023 12:15-0400 Body weight 118.84 kg Shantel Steven Other [employer] Other 03-09-2023 12:15-0400 Diastolic blood pressure 82 mm[Hg] Shantel Steven Other [employer] Other 03-09-2023 12:15-0400 SaO2% (BldA) [Mass fraction] 97 % Shantel Steven Other [employer] Other 03-09-2023 12:15-0400 Systolic blood pressure 130 mm[Hg] Shantel Steven Other [employer] Other 02-20-2023 10:00-0400 Body height 165.1 cm Shantel Steven Other [employer] Other 02-20-2023 10:00-0400 Body mass index (BMI) [Ratio] 41.93 kg/m2 Shantel Steven Other [employer] Other 02-20-2023 10:00-0400 Body weight 114.31 kg Shantel Steven Other [employer] Other 02-20-2023 10:00-0400 Diastolic blood pressure 84 mm[Hg] Shantel Steven Other [employer] Other 02-20-2023 10:00-0400 Systolic blood pressure 132 mm[Hg] Shantel Steven Other [employer] Other 08-04-2022 13:33-0400 Blood Pressure Location Bin NILL [facility] 08-04-2022 13:33-0400 Diastolic blood pressure 88 mm[Hg] Bin NILL [facility] 08-04-2022 13:33-0400 Heart rate 76 /min Bin NILL [facility] 08-04-2022 13:33-0400 Respiratory rate 16 /min Bin NILL [facility] 08-04-2022 13:33-0400 Systolic blood pressure 130 mm[Hg] Bin NILL [facility] 08-25-2021 14:30-0400 Body height 165.1 cm Akbar Wattsle II Other [employer] Other 08-25-2021 14:30-0400 Body mass index (BMI) [Ratio] 43.26 kg/m2 Akbar Gardnerisle II Other [employer] Other 08-25-2021 14:30-0400 Body weight 117.94 kg Akbar Wattsle II Other [employer] Other Functional Status Date Assessment Result Facility 08-04-2022 Functional Status N/A [facility] Clinical Notes 08-25-2021 to 03-07-2024 Note Date & Type Note Facility 03-07-2024 Note ID Cardiology - [facility] Subjective Joe Call is a 78 [...] prior cardiac catheterizations. She has history of MA in the past and underwent balloon angioplasty (many years ago, prior to the stent era). 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 In December 2022 she was admitted to the [facility] with decompensated diastolic heart failure, she was treated with diuretic therapy. In February 2023 she was admitted to [facility] with dehydration secondary to acute gastroenteritis. She also had acute kidney injury in that setting. She has history of breast cancer more than 25 years ago s/p mastectomy, chemo and radiation therapy. She has lymphedema in the left arm. In the past she saw a profile mill operator tape control for bleeding behind the eye . she [...] TIMES DAILY NEEDED (more content not included)... [facility] 02-15-2024 Hospital Discharge instructions Ambulatory OrdersReferral to Urology Time Frame: 02/15/24, Location: None [facility] Work Phone: 11-19-2023 Evaluation note Encounter Date Diagnosis Assessment Notes Nov, Lumbar degenerative disc disease (ICD-10 - M51.36) [employer] Other [id number] Evaluation note* Encounter Date Diagnosis Assessment Notes [...] will check vitamin B12 level next visit [employer] Other 12-11-2023 Evaluation note* Encounter Date Diagnosis Assessment Notes Treatment Notes Treatment Clinical Notes Oct, Lumbar degenerative disc disease (ICD-10 - M51.36) [employer] Other 12-07-2023 Evaluation note* Encounter Date Diagnosis Assessment Notes Treatment Notes Treatment Clinical Notes Oct, Bronchitis (ICD-10 - J40) Finish meds. No acute need for antibiotic at this time Oct, Diabetes mellitus with chronic kidney disease (ICD-10 - E11.22) Due for labs, followup w Dr. Mcconnell Oct, Lumbar degenerative disc disease (ICD-10 - M51.36) Pt will contact neurosurgery. [employer] Other 10-27-2023 Evaluation note* Encounter Date Diagnosis Assessment Notes Treatment Notes Treatment Clinical Notes Aug, Chronic kidney disease, stage 4 (severe) (ICD-10 - N18.4) [employer] Other 10-24-2023 Evaluation note* Encounter Date Diagnosis [...] (ICD-10 - M51.36) Pt requests referral to [place] [facility]. Reviewed OARRS report. Aug, Stress incontinence of urine (ICD-10 - N39.3) R/o infection. Discussed could be related to her diabetes med as well. [employer] Other 10-12-2023 Evaluation note* Encounter Date Diagnosis Assessment Notes Treatment Notes Treatment Clinical Notes 12 Oct, 2023 Lumbar degenerative disc disease (ICD-10 - M51.36) [employer] Other 10-06-2023 NotePatient here for 1 mo follow up CAD, chronic diastolic heart failure, and PAF. Follow up labs have not been completed yet. Her applications sales representative recently started her on Farxiga but she [...] light-headedness. All other systems reviewed and are negative.[facility] 08-17-2023 NoteCardiology Clinic Note Subjective Joe Call [...] In February 2023 she was admitted to [facility] with dehydration secondary to acute gastroenteritis. She also had acute kidney injury in that setting. She has history of breast cancer more than 25 years ago s/p mastectomy, chemo and radiation therapy. She has lymphedema in the left arm. She has been doing well. No chest pain. No dyspnea. No palpitations. She reports that she is seeing a profile mill operator tape control for bleeding behind the eye . She has had a lot of balance issues, uses a walker to ambulate and has had about 10 falls in the past year. Update: 07/23/2023 She was admitted to [facility] 07/08-07/10/2023 for decompensated HFpEF She was diuresed [...] with questions Was prescribed Farxiga by her applications sales representative but did not start after reading about [...] DAYS, Disp: , Rfl (more content not included)...[facility] Encounter Date Diagnosis Assessment Notes Treatment Notes Treatment Clinical Notes Jul, Lumbar degenerative disc disease (ICD-10 - M51.36) [employer] Other 09-11-2023 NoteCardiology Clinic Note Subjective Joe [...] In February 2023 she was admitted to [facility] with dehydration secondary to acute gastroenteritis. She also had acute kidney injury in that setting. She has history of breast cancer more than 25 years ago s/p mastectomy, chemo and radiation therapy. She has lymphedema in the left arm. She has been doing well. No chest pain. No dyspnea. No palpitations. She reports that she is seeing a profile mill operator tape control for bleeding behind the eye . She has had a lot of balance issues, uses a walker to ambulate and has had about 10 falls in the past year. Update: 07/23/2023 She was admitted to [facility] 07/08-07/10/2023 for decompensated HFpEF She was diuresed [...] time each day., Disp: (more content not included)...[facility]09-11-2023 NotePatient here for follow up [facility] for CHF. She was seen as inpatient [...] weakness. All other systems reviewed and are negative.[facility] 07-17-2023 Evaluation note* Encounter Date Diagnosis Assessment [...] refill. Oarrs reviewed. No med changes needed. [employer] Other 07-05-2023 Evaluation note* Encounter Date Diagnosis Assessment Notes Treatment Notes Treatment Clinical Notes May, C. difficile colitis (ICD-10 - A04.72) [employer] Other 06-19-2023 Evaluation note* Encounter Date Diagnosis Assessment Notes Treatment Notes Treatment Clinical Notes Apr, Skin candidiasis (ICD-10 - B37.2) Discussed this is related to her hyperglycemia. Will treat w nystatin, but needs improvement in diet and glucose readings. Apr, Type 2 diabetes mellitus with hyperglycemia, unspecified whether long wall shear operator insulin use (ICD-10 - E11.65) Pt agrees to see Dr Mcconnell again. Recently sent to ER for glucose of 608. Apr, Tremor of both hands (ICD-10 - R25.1) Referral to Dr. Lopez Apr, Memory changes (ICD- 10 - R41.3) Referral to Dr. Lopez Apr, Gastroesophageal reflux disease without esophagitis (ICD-10 - K21.9) Improved on carafate w PPI. [employer] Other 06-14-2023 NoteUT Cardiology - [facility] Subjective Joe Call is a [...] prior cardiac catheterizations. She has history of MA in the past and underwent balloon angioplasty (many years ago, prior to the stent era). 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 In December 2022 she was admitted to the [facility] with decompensated diastolic heart failure, she was treated with diuretic therapy. In February 2023 she was admitted to [facility] with dehydration secondary to acute gastroenteritis. She also had acute kidney injury in that setting. She has history of breast cancer more than 25 years ago s/p mastectomy, chemo and radiation therapy. She has lymphedema in the left arm. She has been doing well. No chest pain. No dyspnea. No palpitations. She reports that she is seeing a profile mill operator tape control for bleeding behind the eye . She [...] 40 mg by mouth (more content not included)...[facility]06-01-2023 Evaluation note* Encounter Date Diagnosis Assessment Notes Treatment Notes Treatment Clinical Notes Apr, Gastroesophageal ref lux disease without esophagitis (ICD-10 - K21.9) [employer] Other 04-28-2023 Evaluation note* Encounter Date Diagnosis [...] lab ordered on 02/20 today Feb, terminal manager (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 insulin (ICD-10 - Z79.4) [employer] Other 04-26-2023 Evaluation note* Encounter Date Diagnosis Assessment Notes Treatment Notes Treatment Clinical Notes Feb, C. difficile colitis (ICD-10 - A04.72) [employer] Other 04-17-2023 Evaluation note* Encounter Date Diagnosis Assessment Notes Treatment Notes Treatment Clinical Notes Feb, Gastroesophageal ref lux disease without esophagitis (ICD-10 - K21.9) [employer] Other 04-14-2023 Evaluation note* Encounter Date Diagnosis Assessment Notes Treatment Notes Treatment Clinical Notes Feb, Chronic diarrhea (ICD-10 - K52.9) [employer] Other 04-11-2023 Evaluation note* Encounter Date Diagnosis [...] it really overall has not been helpful. [employer] Other 01-13-2023 Evaluation note* Encounter Date Diagnosis Assessment Notes Treatment Notes Treatment Clinical Notes Nov, Type 2 diabetes mellitus with hyperglycemia, unspecified whether retirement insulin use (ICD-10 - E11.65) [employer] Other 10-14-2021 Evaluation note* Encounter Date Diagnosis [...] training 6. Follow up in 3 months. [facility] [employer] Other Evaluation + Plan note No data available for this section General [facility] [place] Evaluation noteNo [employer] Other Evaluation noteNort [employer] Other Evaluation noteNort [employer] Other Evaluation note* Diagnosis Onset Date Resolution Status Chalazion of right eye acute Immunization due acute Urinary incontinence [facility] Work Phone: Evaluation note* Diagnosis Onset Date Resolution Status Chalazion of right eye acute Immunization due acute Urinary incontinence acute Diabetes mellitus with hyperglycemia acute Hypertension acute Hypothyroidism acute Lumbar spondylosis acute Secondary hyperparathyroidism [facility] Work Phone: Hisdmjc general Narrative - Reported* Type Description Date [...] History COLONOSCOPY 04/10/2019 Hospitalization History See above [employer] Other Hisvaxz general Narrative - Reported* Type Description Date [...] History COLONOSCOPY 04/10/2019 Hospitalization History See above [employer] Other History general Narrative - ReportedNo[employer]Buster Other Hislluf general Narrative - ReportedNoBugBuster Other Hisnnau general Narrative - Reported* Type Description Date [...] GERD 2022 Hospitalization History DIABETES ISSUES 2022 [employer] Other Hospital Discharge instructions No data available for this section General Surgery [place] Progress note No data available for this section General [facility] [place] Summary Purpose Family History Relationship Condition Age [...] se, stage 4 (severe) (N18.4) Referral Organization [facility] Referring Provider First Name Shantel Referring Provider Last Name Tenisha Referring Provider [facility] Referred Organization [facility] Nephrology Referred Provider Cherie Rapp [address] Address [address] [place], [place],[address] Referred Provider Specialty Nephrology Referral Priority Routine General Notes Mariela Kingston 11:35:41 AM >received today, sent P2P Reason *FU 09/13 lumbar p ain Diagnosis 1 Lumbar degenerative disc disease (M51.36) Referral Organization [facility] Referring Provider First Name Shantel Referring Provider Last Name Tenisha Referring Provider Specialty [facility] Referred Organization [facility] Referred Provider Terell Soliz Referred Address [address] [place], [place],[address] Referred Provider Specialty Pain Medicin e Referral Priority Routine General Notes Mariela Kingston 03:09:25 PM >received today, waiting for notes to be locked Mariela Kingston 09/06/2023 10:08:29 AM >notes locked, referral faxed Clinical Notes F: [id number] Reason Poorly controlled di abetes Diagnosis 1 Type 2 diabetes maranda itus with hyperglycemia, unspecified whether long wall shear operator insulin use (E11.65) Referral Organization [facility] Referring Provider First Name Shantel Referring Provider Last Name Tenisha Referring Provider Specialty [facility] Referred Organization Unknown Facility Referred Provider Joshua Mcconnell Referred Provider Specialty Internal Med icine Referral Priority Routine Reason tremor and memory lo ss - family history of dementia Diagnosis 1 Tremor of both hands (R25.1) Referral Organization [facility] Referring Provider First Name Shantel Referring Provider Last Name Tenisha Referring Provider Specialty [facility] Referred Organization Unknown Facility Referred Provider Emery [...] and content) DATE CREATED AUTHOR 05/10/2018 [facility] DATE CREATED AUTHOR AUTHOR'S ORGANIZ ATION 03/10/2023 [facility] DATE CREATED AUTHOR AUTHOR'S ORGANIZ ATION 02/20/2024 [facility] DATE CREATED AUTHOR AUTHOR'S ORGANIZ ATION 03/10/2024 [facility] DATE CREATED AUTHOR AUTHOR'S ORGANIZ ATION 03/25/2024 [facility] [employer] REASON FOR VISIT (unrecogniz [...] End: January 18, 2024 Franchesca Sullivan APRN SEED ANALYST-C Attending Provider Act chiqui Start: January 18, [...] BE BASED ON THE PRIMARY CLINICAL RECORDS. [employer] provides no warranty or guarantee of the accuracy or completeness of information in this document.
[2024-04-30 08:03] LABS: Magnesium 1.8 mg/dL (1.8-2.4)
[2024-04-30 08:15] LABS: Glucometer 287 mg/dL (74-106)
[2024-04-30] MEDS: INSULIN ASPART 300 UNIT/3 ML PEN SUBQ ×4 (09:26→21:28)
--- NOTE | 2024-04-30 10:02 | P.HP_ITS ---
<Statement entered by Martine Ledesma, DO - 04/30/24 14:48> This documentation has been reviewed and approved.I have also seen and evaluated patient and agree with the above assessments and plan of care. HPI H&P: HPI History of Present Illness Chief complaint: sammi LÓPEZ RENAL FAILURE Narrative: 04/30/24 0840 This is a 78-year-old female patient with a past medical history as outlined below including DM2 with uncontrolled hyperglycemia, hypertension, GERD, HFpEF, hypothyroidism, and paroxysmal A-fib; who presented to the ED early this morning complaining of weakness and difficulty breathing. She reports chronic intermittent diarrhea and experienced nonbloody diarrhea last week for 2 to 3 days. She did not experience nausea or vomiting with this diarrhea and it resolved prior to her presentation in the ED. She was admitted to this facility last month (discharged 03/28/2024) for acute CHF exacerbation. She was discharged on increased Lasix and spironolactone dosing. She notes complete resolution of her pedal edema after discharge. She followed up with her PCP yesterday who recommended she resume her previous Lasix dosing as the patient was hypotensive and her provider was concerned for dehydration. She woke up early this morning feeling weak and short of breath she presented to the ED for further evaluation. Workup in the ED was negative for hypoxia. She was initially slightly hypertensive but her blood pressures have fallen steadily in the ED and are slightly soft now. A chest x-ray revealed stable cardiomegaly and mild left basilar opacity possible atelectasis versus aspiration versus pneumonia. Labs revealed mild hyperkalemia (5.3), hyperglycemia (271), and CARMELO (BUN 99, CR 3.02, GFR 15). She was admitted in observation to the hospitalist service for CARMELO and dehydration. At the time of my exam the patient is resting comfortably in bed. She denies any shortness of breath at this time. IV fluids are infusing at a gentle rate and the patient already reports feeling slightly improved. We clinically suspect overdiuresis as both her Lasix and spironolactone were increased on her last admission. We will hold all renal toxic medications at this time and give gentle fluids and monitor her response and I&O's closely. We do not have clinical concern for an acute respiratory issue and favor atelectasis on imaging. Opioid HPI Opioid Management Most Recent Pain and Opioid Data: Last Pain Scale 0 03/26/24 06:46 Last Pain Assessment 04/30/24 10:00 Last ORT Total Score 0 04/30/24 07:17 Last ORT Risk Category Low Risk 04/30/24 07:17 Review of Systems ROS Status of ROS 10 or more systems reviewed and unremark able except as noted in history and below PFSH PFSH Medical History (Updated 04/30/24 @ 10:29 by Rachana Plata NP) CKD stage 3a, GFR 45-59 ml/min ?N18.31 - Chronic kidney disease, stage 3a (ICD-10) Diabetes mellitus with hyperglycemia, with long-term current use of insulin ?E11.65 - Type 2 diabetes mellitus with hyperglycemia (ICD-10) ?Z79.4 - senior care (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9 - Obesity, unspecified (ICD-10) Surgical History (Updated 03/26/24 @ 06:36 by Brooke Conrad) H/O bilateral mastectomy ?Z90.13 - Acquired absence of bilateral breasts and nipples (ICD-10) Family History (Updated 07/08/23 @ 04:02 by Mira Addison) Other Family history of CHF (congestive heart failure) Family history of cancer Family history of diabetes mellitus Family history of hypertension H/O mastectomy Social History (Updated 03/26/24 @ 06:38 by Brooke Conrad) Within the past year, how often did you have a drink containing alcohol: never Within the past year, how often did you have six or more drinks on one occasion: never Score interpretation: A score less than 3 is consistent with normal alcohol consumption. 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 Highest level of school completed/degree received: some college, no degree Do you want help with school or training: No Are you now , , , , never or living with a partner: In a typical week, how many times do you talk on the telephone with family, friends, or neighbors: 3 or more times per week How often do you get together with friends or relatives: 3 or more times per week How often do you attend taoist or samaritan services: never Do you belong to any clubs or organizations such as taoist groups unions, [employer] ([employer]) or athletic groups, or school groups: no Total score: 2 Score interpretation: A score of greater than or equal to 2 indicates the lowest level of social isolation. Little interest or pleasure in doing things: not at all Feeling down, depressed, or hopeless: not at all Feel stressed/tense/nervous/anxious/difficulty sleeping: not at all Due to disability, difficulty making decisions: No Do you think of yourself as: straight/heterosexual Gender Identity: female Meds Home Medications and Allergies Home Medications ?Medication ?Instructions ?Recorded ?Confirmed ?Type insulin glargine 100 unit/mL (3 35 unit subcut BEDTIME 04/25/23 04/30/24 History mL) subcutaneous pen (Lantus Solostar U-100 Insulin) lisinopril 20 mg tablet 20 mg PO DAILY 04/25/23 04/30/24 History metoprolol tartrate 100 mg tablet 150 mg PO BID 04/25/23 04/30/24 History rivaroxaban 20 mg tablet (Xarelto) 20 mg PO QPM 04/25/23 04/30/24 History insulin aspar prot-insulin aspart 35 unit subcut DAILY 07/08/23 04/30/24 History 100 unit/mL (70-30) subcutaneous pen (Novolog Mix 70-30FlexPen U-100) furosemide 40 mg tablet 40 mg PO BID #60 tabs 03/28/24 04/30/24 Rx spironolactone 50 mg tablet 50 mg PO DAILY #30 tabs 03/28/24 04/30/24 Rx levothyroxine 125 mcg tablet 125 mcg PO .acb 04/30/24 04/30/24 History Allergies Allergy/AdvReac Type Severity Reaction Status Date / Time Sulfa (Sulfonamide Allergy Rash Verified 03/26/24 05:10 Antibiotics) Exam Constitutional Vital Signs, click to edit/add: Last Vital Signs Temp 97.5 F L 04/30/24 08:23 Pulse 60 04/30/24 09:23 Resp 16 04/30/24 08:23 BP 118/74 04/30/24 08:23 Pulse Ox 94 L 04/30/24 08:23 O2 Del Method Room Air 04/30/24 08:23 Common normals: no apparent distress, oriented x3, alert and well nourished General appearance: cooperative Orientation/consciousness: Yes awake HENMT Common normals: normocephalic, head/scalp atraumatic, hearing grossly normal bilaterally, external nose normal and moist oral mucous membranes Eye Common normals: PERRL, EOMs intact bilaterally, conjunctivae normal and no scleral icterus Alignment: alignment normal Eyelid: eyelids normal Neck & C-Spine Common normals: full ROM, supple and no JVD Chest Common normals: inspection of chest normal Chest: symmetrical chest wall rise Respiratory Common normals: normal respiratory effort, no retractions, no use of accessory muscles and clear to auscultation bilaterally Effort & inspection: able to speak in complete sentences Cardio Common normals: no JVD, regular rate, S1 normal heart sound, S2 normal heart sound, no gallops, no clicks, no murmurs, no rub and peripheral pulses 2+ thr oughout Rhythm: abnormal rhythm irregularly irregular (Slight irregularity) GI Common normals: Normal to inspection, nondistended, normoactive bowel sounds present, soft to palpation, non-tender, no hepatosplenomegaly, no masses and no bruits Bladder/kidney exam: bladder normal to palpation Back & Pelvis Common normals: thoracic and lumbar spine normal to inspection Extremity Common normals: normal capillary refill and no pedal edema General: normal exam except as noted; no clubbing and no cyanosis Other: LUE chronic, severe lymph edema Neuro Eugenio Coma Scale: GCS not evaluated Common normals: CN's II-XII intact bilaterally, moves all extremities, no focal motor deficits and no sensory deficits noted Speech: speech normal Motor exam: strength 5/5 throughout Psych Common normals: mental status grossly normal, thought process normal, affect normal and activity/motor behavior normal Results Labs Labs: Short CBC 04/30/24 Range/Units 04:55 WBC 7.5 (4.0-11.0) 10^3/uL Hgb 12.5 (12.0-16.0) g/dL Hct 38.6 (36.0-48.0) % Plt Count 221 (150-450) 10^3/uL BMP 04/30/24 05:30 Sodium 133 L Potassium 5.3 H Chloride 100 Carbon Dioxide 24.4 BUN 99.0 H* Creatinine 3.02 H Glucose 271 H Calcium 9.0 Pulse Oximetry Attestation: I have reviewed the pertinent pulse oximetry results. Imaging Chest x-ray: Attestation: I have reviewed the pertinent imaging results. Radiologist's impression: IMPRESSION: 1. Stable mildly enlarged cardiac silhouette with mild left basilar opacities that could represent atelectasis, aspiration changes, and/or pneumonia. Assessment and Plan Assessment and Plan (1) Acute renal failure (ARF): Assessment and Plan: Acute * Adm observation * Suspect 2/2 dehydration from overdiuresis * Hold renal toxic medications including lasix, spironolactone, and lisinopril * NS IVF at 75 ml/hr for gentle rehydration * Consider Tele-nephrology consult pending clinical course * CMP daily (2) Acute dehydration: Assessment and Plan: Acute * 2/2 overdiuresis * See CARMELO above (3) Hyperkalemia: Assessment and Plan: Acute * Mild - K+ 5.3 * Suspect 2/2 dehydration/volume contraction and increased spironolactone dosing * Hold spironolactone and lasix * IVF as above * Tele monitoring for arrhythmias * No clinical indication for active reversal at this time * CMP daily (4) CHF (congestive heart failure): Assessment and Plan: Chronic * HFpEF at baseline * Appears hypovolemic at this time likely 2/2 overdiuresis * See CARMELO above * BNP WNL in ED * Hold home lasix and spironolactone for now * Daily weights, strict I&O * BNP daily Qualifiers: Heart failure chronicity: acute on chronic Heart failure type: unspecified Qualified Code(s): I50.9 - Heart failure, unspecified (5) Diabetes mellitus with hyperglycemia, with long-term current use of insulin: Assessment and Plan: Chronic * Continue home 70/30 insulin BID * ACHS glucometer checks * Med CC diet * Med SSI for glucose correction * Defer further management to pt's PCP (6) Paroxysmal atrial fibrillation: Assessment and Plan: Chronic * Continue home metoprolol for rate control * Continue home Xarelto for CVA prevention (7) Hypothyroidism (acquired): Assessment and Plan: Chronic * Continue home levothyroxine * TSH subtherapeutic on last admission and levothyroxine dose increased (8) Hypertension: Assessment and Plan: Chronic * BP currently soft * Hold home lisinopril d/t CARMELO and hypotension * Continue home metoprolol for rate control - hold for hypotension (9) Lymph edema: Assessment and Plan: Chronic * Chronic LUE lymphedema s/p mastectomy * Stable at baseline
[2024-04-30 11:12] LABS: Glucometer 292 mg/dL (74-106)
[2024-04-30] MEDS: LEVOTHYROXINE SODIUM 125 MCG TABLET PO (11:32)
--- NOTE | 2024-04-30 12:21 | CM.NOTE ---
Rounds made with Dr. Ledesma. Dr. Ledesma discussed lab results and medication adjustments. Patient verbalized understanding. No discharge today.
--- NOTE | 2024-04-30 14:42 | SWNOTE1 ---
SW met with pt and pt's in room. When SW initially walked in to speak with pt, she stated she is not feeling well and needs to see the surgeon. Pt's spoke up and stated they are getting ahold of the doctor right now. SW then asked pt permission to speak with her and she shook her head yes. Pt's just got to hospital and was not sure what was going on with pt. He voiced he brought her in and then went home at shift change this morning and has not spoke to anyone at this time. SW let pt's know that SW will see if the LICENSED PSYCHIATRIC TECHNICIAN will come back in to speak with him. voiced she was doing well at home until very early this morning. She uses a rollator at home and has no HH coming in. At this time unsure of discharge needs. During conversation with , pt did spit up/vomit in to the container provided. SW to let nurse and LICENSED PSYCHIATRIC TECHNICIAN know. SW spoke with LICENSED PSYCHIATRIC TECHNICIAN and nurse to update them and that requested to speak with LICENSED PSYCHIATRIC TECHNICIAN. Medicare Outpatient Observation Notice reviewed and discussed with patient's . Pt's verbalized understanding and signed the form. Original given to patient's and copy placed in patient?s chart.
[2024-04-30] MEDS: ONDANSETRON PF 4 MG/2 ML VIAL IV ×2 (14:49→21:32)
[2024-04-30 15:43] LABS: Glucometer 199 mg/dL (74-106)
[2024-04-30] MEDS: RIVAROXABAN 10 MG TABLET 20 MG PO (16:09)
[2024-04-30] MEDS: PANTOPRAZOLE SODIUM 40 MG VIAL IV (16:09)
[2024-04-30 20:44] LABS: Glucometer 219 mg/dL (74-106)
[2024-04-30] MEDS: METOPROLOL TARTRATE 100 MG TABLET 150 MG PO (21:27)
[2024-04-30] MEDS: INSULIN DETEMIR 300 UNIT/3 ML INSULN.PEN 35 UNIT SQ (21:28)
[2024-04-30] MEDS: OXYCODONE HCL/ACETAMINOPHEN 5MG/325MG 1 TAB PO (21:33)
[2024-04-30] MEDS: ALPRAZOLAM 0.25 MG TABLET PO (21:33)
[2024-04-30] MEDS: LIDOCAINE 5% PATCH 1 PATCH TOPICAL (21:33)
[2024-05-01] VITALS (9 sets, daily range): BP systolic 121; BP diastolic 70; PULSE 60–100; TEMP 36.3; O2SAT 95
[2024-05-01 05:21] LABS: Basophils Absolute Auto 0.1 10^3/uL (0.0-0.1); Basophils Percent Auto 0.7 % (0.2-2.0); Eosinophils Absolute Auto 0.2 10^3/uL (0.0-0.7); Eosinophils Percent Auto 2.3 % (0.9-7.0); Hematocrit 37.5 % (36.0-48.0); Hemoglobin 12.1 g/dL (12.0-16.0); Immature Granulocytes Abs Auto 0.01 10^3/uL (0.00-0.03); Immature Granulocytes Pct Auto 0.1 % (0.0-0.5); Lymphocytes Absolute Auto 2.2 10^3/uL (1.2-3.8); Lymphocytes Percent Auto 29.4 % (20.5-60.0); Mean Corpuscular HGB Conc 32.3 g/dL (29.9-35.2); Mean Corpuscular Hemoglobin 29.2 pg (26.7-34.0); Mean Corpuscular Volume 90.4 fL (81.0-99.0); Mean Platelet Volume 11.6 fL (9.5-13.5); Monocytes Absolute Auto 0.9 10^3/uL (0.3-0.8); Monocytes Percent Auto 11.5 % (1.7-12.0); Neutrophils Absolute Auto 4.1 10^3/uL (1.4-6.5); Platelet Count 151 10^3/uL (150-450); Red Blood Count 4.15 10^6/uL (4.20-5.40); Red Cell Distribution Width 13.6 % (11.0-15.0); White Blood Count 7.4 10^3/uL (4.0-11.0)
[2024-05-01] MEDS: LEVOTHYROXINE SODIUM 125 MCG TABLET PO (05:40)
[2024-05-01 05:56] LABS: Alanine Aminotransferase 16 U/L (14-59); Albumin Globulin Ratio 0.6; Albumin Level 2.8 g/dL (3.4-5.0); Alkaline Phosphatase 80 U/L (46-116); Anion Gap 14.3; Aspartate Amino Transferase 11 U/L (15-37); Bilirubin Total 0.4 mg/dL (0.2-1.0); Calcium 9.3 mg/dL (8.5-10.1); Carbon Dioxide 22.9 mmol/L (21.0-32.0); Chloride 104 mmol/L (98-107); Estimated GFR (African America 26 (>=60); Estimated GFR (Non-African Ame 22 (>=60); Globulin 4.4 g/dL; Glucose 126 mg/dL (74-106); Potassium 5.2 mmol/L (3.5-5.1); Sodium 136 mmol/L (136-145); Total Protein 7.2 g/dL (6.4-8.2)
[2024-05-01] MEDS: METOPROLOL TARTRATE 100 MG TABLET 150 MG PO (09:16)
[2024-05-01] MEDS: ALPRAZOLAM 0.25 MG TABLET PO (09:17)
--- NOTE | 2024-05-01 10:54 | CM.NOTE ---
Rounds made with Dr. Ledesma. Potential discharge later today if labs (repeat BNP) at 1300 improving.
--- NOTE | 2024-05-01 11:14 | REH.PTDLY ---
Physical Therapy Daily Note PT Daily Note/Assess Start: 05/01/24 11:10 Freq: Status: Active Protocol: Document 05/01/24 11:10 SONIDO (Rec: 05/01/24 11:14 SONIDO [id number]) Physical Therapy Daily Note/Assessment Time In 09:22 Time Out 09:35 Subjective Up in chair upon arrival, no complaints this morning. Therapeutic Exercise Minutes (minutes) 6 Therapeutic Exercise Units 0 Therapeutic Exercise Treatment Instructed in seated exs 10- 15x ea with B LEs for improved strength with exs including AP, LAQ, marching, and hip abd slides. Therapeutic Activity Minutes (minutes) 6 Therapeutic Activity Units 1 Chair Transfer Ability Standby Assistance Therapeutic Activity Comments Sit to stand transfers from chair SBA. Gait training with RW CGA with pt ambulating about 45 feet and then resorts to resting forearms on RW and ambulating this way due to back pain per pt. Cues for pt to stand upright after about 20 feet. Pt is then able to ambulate for about another 45 feet and then is wanting to rest forearms on RW with encouragement not to for the last 20 feet back to chair. OT enters room and takes over care. Total Therapy Minutes 12 Total Physical Therapy Units 1 Daily Note Summary Pt requires cues with gait to encourage upright posture as she wants to lean on RW to prevent LB pain. Pt states this is how she will walk at home with her rollator at times. Per pt report she is being DC later today to home.
--- NOTE | 2024-05-01 11:25 | SWNOTE1 ---
SW reviewed therapy notes and no needs for discharge at this time. Potential for discharge today.
[2024-05-01 11:52] LABS: Glucometer 347 mg/dL (74-106)
[2024-05-01] MEDS: INSULIN ASPART 300 UNIT/3 ML PEN SUBQ (12:00)
[2024-05-01 13:27] LABS: Anion Gap 12.1; BUN Creatinine Ratio 40.7; Calcium 9.2 mg/dL (8.5-10.1); Carbon Dioxide 23.2 mmol/L (21.0-32.0); Chloride 104 mmol/L (98-107); Estimated GFR (African America 27 (>=60); Estimated GFR (Non-African Ame 22 (>=60); Glucose 220 mg/dL (74-106); Potassium 5.3 mmol/L (3.5-5.1); Sodium 134 mmol/L (136-145)
--- NOTE | 2024-05-01 13:56 | P.DS_ITS ---
<Statement entered by Martine Ledesma DO - 05/01/24 15:34> This documentation has been reviewed and approved. I have also seen and examined patient at the time of discharge and agree with plan to discharge and follow up appt. DS: Providers Provider Date of admission: 04/30/24 06:47 Primary care physician: Theodora Cuevas MD Consults: 04/30/24 Consult to Dietitian Routine Reason for consultation: wt loss, poor appetite Has provider been notified: No 04/30/24 10:54 Physical Therapy Eval and Treat Routine Reason for consultation: Gen weakness Has provider been notified: No 04/30/24 10:55 Occupational Therapy Eval and Treat Routine Reason for consultation: Gen weakness Has provider been notified: No Discharging clinician: Rachana Plata DS: Diagnosis Discharge Diagnosis (1) Acute renal failure (ARF): (2) Acute dehydration: (3) Hyperkalemia: (4) CHF (congestive heart failure): Qualifiers: Heart failure chronicity: acute on chronic Heart failure type: unspecified Qualified Code(s): I50.9 - Heart failure, unspecified (5) Diabetes mellitus with hyperglycemia, with long-term current use of insulin: (6) Paroxysmal atrial fibrillation: (7) Hypothyroidism (acquired): (8) Hypertension: (9) Lymph edema: DS: Summary Hospital Course Hospital Course: The patient was admitted with acute dehydration, acute renal failure, and associated mild hyperkalemia thought to be secondary to overdiuresis. All renal toxic medications including lisinopril, Lasix, and spironolactone were held and she was given gentle IV fluids. Her renal function slowly improved during her stay. Her renal labs are not quite back to baseline but are significantly improved and the patient feels clinically better and is asking to be discharged. Her potassium level is nearly normal at the time of discharge and we expect it to continue to drop as the patient is holding her spironolactone. The patient is being discharged home in stable condition with instructions to hold her Lasix and spironolactone for 3 more days until her follow-up appointment with her PCP on 05/05/2024 where they can discuss what doses of these medications should be resumed. She should push fluids over the weekend, especially since it is so hot, in order to maintain hydration and continue to flush her kidneys. We recommend a repeat BMP per the PCP to continue to monitor her renal function. In addition, her PCP could consider as needed Lasix dosing in addition to her scheduled Lasix. The patient has been instructed to start weighing herself daily next week and to contact her PCP if she gains more than 3 pounds in a day or 5 pounds per week. Time Spent with Patient Time attestation: Total time spent providing and/or coordinating discharge services: Time spent: greater than 30 minutes Specific discharge activities: Physical exam, discussion of discharge plan, questions answered. Exam Constitutional Vital Signs, click to edit/add: Last Vital Signs Temp 97.3 F L 05/01/24 05:49 Pulse 68 05/01/24 13:54 Resp 18 05/01/24 05:49 BP 121/70 05/01/24 05:49 Pulse Ox 95 05/01/24 05:49 O2 Del Method Room Air 05/01/24 05:49 Common normals: no apparent distress, oriented x3 and alert General appearance: cooperative Orientation/consciousness: Yes awake HENMT Common normals: normocephalic and head/scalp atraumatic Eye Common normals: PERRL, EOMs intact bilaterally, conjunctivae normal and no scleral icterus Neck & C-Spine Common normals: no JVD Respiratory Common normals: normal respiratory effort, no use of accessory muscles and clear to auscultation bilaterally Effort & inspection: able to speak in complete sentences and symmetric chest movement Cardio Common normals: no JVD, regular rate, regular rhythm, S1 normal heart sound, S2 normal heart sound, no murmurs and peripheral pulses 2+ throughout GI Common normals: Normal to inspection, nondistended, normoactive bowel sounds present and soft to palpation Bladder/kidney exam: bladder normal to palpation Extremity Common normals: normal to inspection, full ROM, normal capillary refill and no pedal edema General: no clubbing and no cyanosis Neuro Common normals: moves all extremities, no focal motor deficits and no sensory deficits noted Speech: speech normal Psych Common normals: mental status grossly normal and activity/motor behavior normal DS: Data Data Completed and Pending Labs on day of discharge: Labs from last 24 hours 05/01/24 05/01/24 05/01/24 13:05 11:51 04:11 WBC 7.4 RBC 4.15 L Hgb 12.1 Hct 37.5 MCV 90.4 MCH 29.2 MCHC 32.3 RDW 13.6 Plt Count 151 MPV 11.6 Neut % (Auto) 56.0 Lymph % (Auto) 29.4 [place] % (Auto) 11.5 Eos % (Auto) 2.3 Baso % (Auto) 0.7 Neut # (Auto) 4.1 Lymph # (Auto) 2.2 [place] # (Auto) 0.9 H Eos # (Auto) 0.2 Baso # (Auto) 0.1 Abs Immat Gran (auto) 0.01 Imm/Tot Granulo (auto) 0.1 Sodium 134 L 136 Potassium 5.3 H 5.2 H Chloride 104 104 Carbon Dioxide 23.2 22.9 Anion Gap 12.1 14.3 BUN 87.0 H* 95.0 H* Creatinine 2.14 H 2.21 H Est GFR ( Amer) 27 L 26 L Est GFR (Non-Af Amer) 22 L 22 L BUN/Creatinine Ratio 40.7 43.0 Glucose 220 H 126 H Calcium 9.2 9.3 Total Bilirubin 0.4 AST 11 L ALT 16 Alkaline Phosphatase 80 NT-Pro-B Natriuret Pep 1624.0 Total Protein 7.2 Albumin 2.8 L Globulin 4.4 Albumin/Globulin Ratio 0.6 POC Glucose 347 H 04/30/24 04/30/24 20:42 15:38 WBC RBC Hgb Hct MCV MCH MCHC RDW Plt Count MPV Neut % (Auto) Lymph % (Auto) [place] % (Auto) Eos % (Auto) Baso % (Auto) Neut # (Auto) Lymph # (Auto) [place] # (Auto) Eos # (Auto) Baso # (Auto) Abs Immat Gran (auto) Imm/Tot Granulo (auto) Sodium Potassium Chloride Carbon Dioxide Anion Gap BUN Creatinine Est GFR ( Amer) Est GFR (Non-Af Amer) BUN/Creatinine Ratio Glucose Calcium Total Bilirubin AST ALT Alkaline Phosphatase NT-Pro-B Natriuret Pep Total Protein Albumin Globulin Albumin/Globulin Ratio POC Glucose 219 H 199 H Discharge Plan Discharge Disposition: Home, Self-Care Discharge Medications: Continued insulin glargine [Lantus Solostar U-100 Insulin] 100 unit/mL (3 mL) insulin pen 35 unit SUBCUT BEDTIME lisinopril 20 mg tablet 20 mg PO DAILY metoprolol tartrate 100 mg tablet 150 mg PO BID Xarelto 20 mg tablet 20 mg PO QPM Rx Instructions: must administer with evening meal insulin asp prt-insulin aspart [Novolog Mix 70-30FlexPen U-100] 100 unit/mL (70-30) insulin pen 35 unit subcut DAILY Rx Instructions: USE DIRECTED PER SLIDING SCALE- MAX 35 UNITS DAILY levothyroxine 125 mcg tablet 125 mcg PO .acb alprazolam 0.25 mg tablet 0.25 mg PO TID PRN (Reason: anxiety) Patient Comments: 0.25mg PO TID PRN for anxiety oxycodone-acetaminophen 5-325 mg tablet 1 tab PO BID PRN (Reason: pain) Held furosemide 40 mg tablet 40 mg PO BID Qty: 60 0RF Hold Instructions: Until follow up appt w/ PCP to discuss dosing Patient Comments: Was told to only take half of this med as of 04/29/2024 spironolactone 50 mg tablet 50 mg PO DAILY Qty: 30 0RF Hold Instructions: Until follow up appt w/ PCP to discuss dosing Print Language: British Activity Restrictions/Additional Instructions: - Push oral fluids for the next 3 days - Discuss Lasix and Spironolactone dosing with your PCP at your follow up appointment - Weight yourself daily starting next week. Call your provider if you gain more than 3#/day or 5#/week. - PCP to consider repeat BMP to continue to monitor renal function and potassium level Forms: Portal Instructions Follow Up Appointments: Sunday05/05/24 @ 1pm with Dr. Cuevas [phone]
== END 2024-05-01 16:20 | disposition home or self-care (01) ==
LOC: ER 06:33 → MS 06:48
PROVIDERS: Nurse Practitioner; Admitting Provider Family Medicine; Emergency Provider Internal Medicine; PCP Family Medicine; Visit Provider Family Medicine
DX: N17.9 Acute kidney failure, unspecified (principal); E86.0 Dehydration; E87.5 Hyperkalemia; I11.0 Hypertensive heart disease with heart failure; I50.32 Chronic diastolic (congestive) heart failure; E11.65 Type 2 diabetes mellitus with hyperglycemia; K21.9 Gastro-esophageal reflux disease without esophagitis; E03.9 Hypothyroidism, unspecified; I48.0 Paroxysmal atrial fibrillation; I89.0 Lymphedema, not elsewhere classified; Z90.13 Acquired absence of bilateral breasts and nipples; Z79.4 Long term (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 insulin; Z79.899 Other long term (current) drug therapy
CPT/HCPCS: 36415; 71045; 80048; 80053; 82948; 83735; 83880; 84484; 85025; 85378; 87045; 87493; 93005; 96361; 96374; 96375; 96376; 97161; 97165; 97530; 99285; G0378; J2405

== ENCOUNTER 2024-05-04 09:20 | Inpatient (IN) | payer MEDICARE, SELFPAY ==
[2024-05-04] VITALS (15 sets, daily range): BP systolic 112–161; BP diastolic 59–72; PULSE 57–115; TEMP 36.3–36.6; O2SAT 93–97; BMI 41.6
--- OUTSIDE RECORDS SUMMARY | 2024-05-04 09:30 | XMS_ITS | CCD ---
Author Organization [facility] CliniSynv Care Team Providers Care Boot Turner Name Role Phone UNKNOWN, PROVIDER Unavailable Unavailable [...] Unavailable MD Shantel Steven Primary Care Provider [phone] MD Shantel Steven Other Provider MD Eloina Hussein Attending Provider MD Eloina Hussein Referring Provider Shantel Steven Consulting Unavailable Shantel Steven Primary Care Unavailable Eloina Hussein Referring Unavailable Eloina Hussein Attending Unavailable Eloina Hussein Admitting Unavailable Allergies Allergy Classification Reported Allergen(s) Allergy Type Date of Onset Reaction(s) Facility (1 source) Iodine (And Iodine Containting Drugs) Drug allergy (disorder) 03-04-20 12 [facility] (20 sources) Shellfish; 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: [Shellfish] Food allergy (disorder) 03-04-20 12 rash, Eruption of skin (disorder) [facility] (7 sources) Sulfonamides (Antibiotic); 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: [SULFA (SULFONAMIDE ANTIBIOTICS)] Drug allergy (disorder) 03-04-20 12 Rash [facility] (20 sources) Sulfacetamide Drug Allergy 02-15-20 24 diarrhea [facility] (13 sources) Contrast media; 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: [contrast media (iodine-based)] Drug allergy Unknown (qualifier value) [facility] [place] (2 sources) Sulfonamides (Antibiotic); 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: [sulfa drugs] Drug allergy Diarrhea (finding) [facility] (2 sources) Glucosamine Drug Allergy [facility] Rep[facility] (2 sources) Iodine (And Iodine Containting Drugs) Drug allergy (disorder) 08-09-20 17 [facility] (11 sources) Contrast media Propensity to adverse reactions 11-18-[address] [facility] [employer] Other (12 sources) Iodine; 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: [IODINE] Drug Allergy 10-30-20 14 Unknown [facility] (11 sources) Substance with sulfonamide structure and antibacterial mechanism of action (substance) Drug allergy Unknown [facility] Other (11 sources) Dyes Propensity to adverse reactions Comment:CT Dyes,Dyes,IVP Dyes [facility] [employer] Other (5 sources) Shellfish; 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: [SHELLFISH DERIVED] Allergy to substance 10-30-20 [facility] (5 sources) Iodinated Contrast Media; 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: [IODINATED CONTRAST MEDIA] Allergy to substance 02-15-20 [facility] (1 source) Chocolate; 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: [CHOCOLATE FLAVOR] Propensity to adverse reactions to drug (disorder) 01-17-20 [facility] (1 source) Sulfacetamide Drug Allergy 02-15-20 [facility] (1 source) Sulfonamides (Antibiotic) Drug allergy (disorder) 02-15-20 [facility] Repository Medications Current Medications Medication Drug Class(es) [...] 2024 1:00am take 1 capsule by mo ut every twenty-four hours Vitamin D3 125 MCG [...] Daily, # 30 EA, Refills(s) 11, Pharmacy: [id number], 165.1, cm, 03/07/21 13:49:00 EDT, Height/Length [...] 19, 2021 12:00am take 1 capsule by [facility] every twelve hours dilTIAZem HCl ER 120 MG 1 capsule Orally Twice a day Active famotidine 20 mg oral tablet (20 sources) Histamine-2 Receptor Antagonist Start: 01-17-2024 take 20 mg by mouth once daily at bedtime Famotidine Active 20 MG PO Daily at bedtime January 17, 2024 1:00am Start: 01-07-2023 take 1 tablet by [facility] every twenty-four hours Famotidine 20 MG 1 [...] by joesph th every twenty-four hours nystatin [id number] unt/ml topical cream (19 sources) Polyene Antifungal Start: 01-17-2024 Nystatin Ac tive 1 APPLIC TOPICAL Twice daily January 17, 2024 1:00am Nystatin 921508 UNIT/GM 1 application Externally Twice a day for 10 days Active Nystatin 775104 UNIT/GM 1 application Externally Twice a day [...] tablet (20 sources) Aldosterone Antagonist Start: 01-17-20 24 take 25 mg by mouth once daily [...] capsule Orally Once a day Active Vitamins A,C,Y-Efqe-Btmzld (Preservision Areds) 4,296 mcg-226 mg-90 mg capsule (3 sources) Start: 01-17-2024 take 1 capsule by mouth twice daily Vitamins A,C,W-Reyb-Kiwamo (Preservision Areds) 4,296 mcg-226 mg-90 mg capsule Active 1 CAP PO Twice daily January 17, 2024 1:00am Completed/Discontinued Medications Medication Drug Class(es) Dates Sig (Normalized) Sig (Original) acetaminophen 325 mg / oxyCODONE hydrochloride 5 mg oral tablet (20 sources) Opioid Agonist Start: 01-04-2024 End: 03-03-2024 take 1 tablet by mouth twice daily Oxycodone-Acetamino phen Discontinued 1 TAB PO Twice daily January 04, 2024 March 03, 2024 4:30pm Start: 11-19-2023 take 1 tablet by joesph twice daily as needed oxyCODONE-Acetaminophen 5-325 MG 1 table t Orally TWICE A DAY NEEDED for 30 days Nov, Active Start: 10-22-2023 take 1 tablet by joesph twice daily as needed oxyCODONE-Acetaminophen 5-325 MG 1 table t Orally TWICE A DAY NEEDED for 30 days Oct, Active Start: 10-22-2023 take 1 tablet by joesph once daily as needed oxyCODONE-Acetaminophen 5-325 MG 1 table t Orally daily prn for 30 days Oct, Active Start: 08-23-2023 take 1 tablet by joesph twice daily oxyCODONE-Acetaminophen 5-325 MG 1 table t Orally two times daily Aug, Active Start: 07-23-2023 take 1 tablet by joesph twice daily oxyCODONE-Acetaminophen 5-325 MG 1 table t Orally two times daily for 30 days Jul, Active Start: 07-17-2023 take 1 tablet by joesph twice daily oxyCODONE-Acetaminophen 5-325 MG 1 table t Orally two times daily for 30 days Jul, Active Start: 05-22-2023 Start: 04-03-2023 take 1 tablet by joesph twice daily oxyCODONE-Acetaminophen 5-325 MG 1 table t Orally two times daily for 30 days March, Active Start: 02-02-2023 take 1 tablet by joesph twice daily oxyCODONE-Acetaminophen 5-325 MG 1 table t Orally two times daily for 30 days Jan, Active Start: 11-30-2022 take 1 tablet by joesph twice daily oxyCODONE-Acetaminophen 5-325 MG 1 table t Orally two times daily for 30 days Nov, Active Start: 07-27-2022 take 1 tablet by joesph th twice daily acetaminophen-oxycodone 325 mg-2.5 mg or al tablet 1 tab(s), Oral, BID, Refill(s) 0 Start Date: 07/27/22 Status: Ordered Start: 06-12-2021 End: 06-19-2021 take 1 tablet by mouth twice daily Oxycodone-Acetaminophen Discontinued 1 T AB PO Twice daily June 12, 2021 12:00am June 19, 2021 3:13am [id number] 200 actuat albuterol 0.09 mg/actuat metered dose [...] Start: 11-27-2022 take 1 tablet by joesph three times daily as needed ALPRAZolam 0.25 MG 1 tablet Orally three times daily, as needed for 30 days Nov, Active Start: 07-27-2022 take 1 tablet by joesph th three times daily as needed for anxiety alprazolam 0.25 mg Tab 0.25 mg = 1 tab(s), Oral, TID, PRN as needed for anxiety, Refills(s) 0 Start Date: 07/27/22 Status: Ordered amitriptyline hydrochloride 10 mg oral tablet (12 sources) Tricyclic Antidepressant take 1 tablet by mouth every twenty-four hours Amitriptyline HCl 10 MG 1 tablet at bedtime Orally Once a day Not-Taking amylase 680504 unt / lipase 89269 unt / protease 67235 unt delayed release oral capsule (4 sources) Start: End: Kiqluz-Yweujxql-Scq lase (Creon) 24,000-76,000 -120,000 unit capsule,delayed release(DR/EC) Discontinued 1 - 2 CAP PO 1-2 TIMES DAILY June 11, 2021 12:00am June 19, 2021 3:12am Start: 05-10-2021 Creon 24,000 u nits oral delayed release capsule See Instructions, take 3 caps with each meal and 2 caps with each snack., # 390 caplet(s), Refills(s) 0, Pharmacy: [facility] #[id number], 165.1, cm, 04/18/21 13:02:00 EDT, Height/Length Dosing, 116.4, kg, 04/18/21 13:02:00 EDT, Weight Dosing Start Date: 05/10/21 Status: Ordered biotin 5 mg oral capsule (7 sources) Start: 01-17-2024 End: 04-03-2024 take 5 mg by mouth once daily Biotin Discontinued 5 MG PO Daily January 17, 2024 1:00am April 03, 2024 11:46am take 1 capsule by [facility] every twenty-four hours Biotin 5 MG [...] Cefdinir Discontinued 300 MG PO Twice daily 08 16June 12, 2021 12:00am January 17, 2024 5:18pm [...] tablet by joesph th every eight hours Derry 3-Djl-Ssh-Fish Oil (Fish Oil) 1,000 mg (120 mg-180 mg) capsule (3 sources) Start: 01-17-2024 End: 04-03-2024 take 1 capsule by mouth once daily Derry 2-Rhf-Czw-Fish Oil (Fish Oil) 1,000 mg (120 mg-180 mg) capsule Discontinued 1 CAP PO Daily January 17, 2024 1:00am April 03, 2024 11:49am Start: 01-17-2024 take 1 capsule by mo [facility] once daily Derry 5-Ene-Hci-Fish Oil (Fish Oil) 1,000 mg (120 mg-180 [...] Coronary arteriosclerosis; 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: [Atherosclerotic heart disease of [place] coronary artery without angina pectoris] Onset: 3 [...] sources) Long-term current use of insulin; 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: [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] 01-17-2024 Episodic Other aftercare (1 source) Other 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 truck driver (current) drug therapy; 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: [OTH CANS VACUUM TESTER CURRENT DRUG THERAPY] Onset: 3 Episodic Other aftercare (1 source) 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 truck driver (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 anticoagulants; 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: [LONG-TERM CURRNT USE 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] Onset: 3 Episodic Other [...] Da te Episodic/Chronic Other aftercare (4 sources) senior care (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 insulin; 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: [CANS VACUUM TESTER CURRENT USE OF INSULIN] Onset: 3 Episodic [...] Basophils (Bld) [#/Vol] 0.1 10 3/uL 0.0-0.1 [facility] Basophils/100 WBC Auto (Bld) on 03-28-2024 Basophils/100 WBC (Bld) 0.9 % 0.2-2.0 [facility] Eosinophils/100 WBC Auto (Bl d)on 03-28-2024 Eosinophils/100 WBC (Bld) 1.7 % 0.9-7.0 [facility] Erythrocyte distribution wid th Auto (RBC) [Ratio]on 03-28-2024 Erythrocyte distribution width (RBC) [Ratio] 14.2 % 11.0-15.0 [facility] Hematocrit Auto (Bld) [Volum e fraction]on 03-28-2024 Hematocrit (Bld) [Volume fraction] 40.0 % 36.0-48.0 [facility] Hemoglobin [Mass/volume] in Bloodon 03-28-2024 Hemoglobin (Bld) [Mass/Vol] 12.6 g/dL 12.0-16.0 [facility] Laboratory - Hematology and Cell countson 03-28-2024 Immature granulocytes/100 WBC (Bld) 0.4 % 0.0-0.5 [facility] Leukocytes [#/volume] correc gali for nucleated erythrocytes in Blood by Automated counon 03-28-2024 WBC corrected for nucl RBC Auto (Bld) [#/Vol] 8.4 10 3/uL 4.0-11.0 [facility] Lymphocytes Auto (Bld) [#/Vo l]on 03-28-2024 Lymphocytes (Bld) [#/Vol] 1.8 10 3/uL 1.2-3.8 [facility] Lymphocytes/100 WBC Auto (Bl d)on 03-28-2024 Lymphocytes/100 WBC (Bld) 21.4 % 20.5-60.0 [facility] MCH Auto (RBC) [Entitic mass ]on 03-28-2024 MCH (RBC) [Entitic mass] 29.0 pg 26.7-34.0 [facility] MCHC Auto (RBC) [Mass/Vol]on 03-28-2024 MCHC (RBC) [Mass/Vol] 31.5 g/dL 29.9-35.2 [facility] MCV Auto (RBC) [Entitic vol] on 03-28-2024 MCV (RBC) [Entitic vol] 92.0 fL 81.0-99.0 [facility] Monocytes Auto (Bld) [#/Vol] on 03-28-2024 Monocytes (Bld) [#/Vol] 0.8 10 3/uL 0.3-0.8 [facility] Monocytes/100 WBC Auto (Bld) on 03-28-2024 Monocytes/100 WBC (Bld) 9.7 % 1.7-12.0 [facility] Neutrophils Auto (Bld) [#/Vo l]on 03-28-2024 Neutrophils (Bld) [#/Vol] 5.6 10 3/uL 1.4-6.5 [facility] Neutrophils/100 WBC Auto (Bl d)on 03-28-2024 Neutrophils/100 WBC (Bld) 65.9 % 43.0-75.0 [facility] No Panel Informationon 03-28 Eosinophils # (Auto) 0.1 10 3/uL 0.0-0.7 [facility] Immature Granulocyte # (Auto) 0.03 10 3/uL 0.00-0.03 [facility] Platelet mean volume Auto (B ld) [Entitic vol]on 03-28-2024 Platelet mean volume (Bld) [Entitic vol] 10.5 fL 9.5-13.5 [facility] Platelets Auto (Bld) [#/Vol] on 03-28-2024 Platelets (Bld) [#/Vol] 197 10 3/uL 150-450 [facility] RBC Auto (Bld) [#/Vol]on RBC (Bld) [#/Vol] 4.35 10 6/uL 4.20-5.40 [facility] Basophils Auto (Bld) [#/Vol] on 03-27-2024 Basophils (Bld) [#/Vol] 0.1 10 3/uL 0.0-0.1 [facility] Basophils/100 WBC Auto (Bld) on 03-27-2024 Basophils/100 WBC (Bld) 0.8 % 0.2-2.0 [facility] Eosinophils/100 WBC Auto (Bl d)on 03-27-2024 Eosinophils/100 WBC (Bld) 1.1 % 0.9-7.0 [facility] Erythrocyte distribution wid th Auto (RBC) [Ratio]on 03-27-2024 Erythrocyte distribution width (RBC) [Ratio] 14.2 % 11.0-15.0 [facility] Glucose mean value [Mass/vol ume] in Blood Estimated from glycated hemoglobinon 03-27-2024 Average glucose Estimated from glycated hemoglobin (Bld) [Mass/Vol] 275 mg/dL [facility] Hematocrit Auto (Bld) [Volum e fraction]on 03-27-2024 Hematocrit (Bld) [Volume fraction] 37.4 % 36.0-48.0 [facility] Hemoglobin [Mass/volume] in Bloodon 03-27-2024 Hemoglobin (Bld) [Mass/Vol] 12.1 g/dL 12.0-16.0 [facility] Laboratory - Hematology and Cell countson 03-27-2024 HbA1c (Bld) [Mass fraction] 11.2 % 4.5-6.2 [facility] Comment on above: ADA RECOMMENDED LIMI T 4.0 - 6.0ADA THERAPEUTIC TARGET < 7.0ACTION SUGGESTED> 7.0 Immature granulocytes/100 WBC (Bld) 0.3 % 0.0-0.5 [facility] Leukocytes [#/volume] correc gali for nucleated erythrocytes in Blood by Automated counon 03-27-2024 WBC corrected for nucl RBC Auto (Bld) [#/Vol] 9.7 10 3/uL 4.0-11.0 [facility] Lymphocytes Auto (Bld) [#/Vo l]on 03-27-2024 Lymphocytes (Bld) [#/Vol] 1.3 10 3/uL 1.2-3.8 [facility] Lymphocytes/100 WBC Auto (Bl d)on 03-27-2024 Lymphocytes/100 WBC (Bld) 13.3 % 20.5-60.0 [facility] MCH Auto (RBC) [Entitic mass ]on 03-27-2024 MCH (RBC) [Entitic mass] 29.2 pg 26.7-34.0 [facility] MCHC Auto (RBC) [Mass/Vol]on 03-27-2024 MCHC (RBC) [Mass/Vol] 32.4 g/dL 29.9-35.2 [facility] MCV Auto (RBC) [Entitic vol] on 03-27-2024 MCV (RBC) [Entitic vol] 90.3 fL 81.0-99.0 [facility] Monocytes Auto (Bld) [#/Vol] on 03-27-2024 Monocytes (Bld) [#/Vol] 0.8 10 3/uL 0.3-0.8 [facility] Monocytes/100 WBC Auto (Bld) on 03-27-2024 Monocytes/100 WBC (Bld) 8.4 % 1.7-12.0 [facility] Neutrophils Auto (Bld) [#/Vo l]on 03-27-2024 Neutrophils (Bld) [#/Vol] 7.4 10 3/uL 1.4-6.5 [facility] Neutrophils/100 WBC Auto (Bl d)on 03-27-2024 Neutrophils/100 WBC (Bld) 76.1 % 43.0-75.0 [facility] No Panel Informationon 03-27 Eosinophils # (Auto) 0.1 10 3/uL 0.0-0.7 [facility] Immature Granulocyte # (Auto) 0.03 10 3/uL 0.00-0.03 [facility] Platelet mean volume Auto (B ld) [Entitic vol]on 03-27-2024 Platelet mean volume (Bld) [Entitic vol] 10.6 fL 9.5-13.5 [facility] Platelets Auto (Bld) [#/Vol] on 03-27-2024 Platelets (Bld) [#/Vol] 204 10 3/uL 150-450 [facility] RBC Auto (Bld) [#/Vol]on RBC (Bld) [#/Vol] 4.14 10 6/uL 4.20-5.40 [facility] Basophils Auto (Bld) [#/Vol] on 03-26-2024 Basophils (Bld) [#/Vol] 0.1 10 3/uL 0.0-0.1 [facility] Basophils/100 WBC Auto (Bld) on 03-26-2024 Basophils/100 WBC (Bld) 0.8 % 0.2-2.0 [facility] Eosinophils/100 WBC Auto (Bl d)on 03-26-2024 Eosinophils/100 WBC (Bld) 1.2 % 0.9-7.0 [facility] Erythrocyte distribution wid th Auto (RBC) [Ratio]on 03-26-2024 Erythrocyte distribution width (RBC) [Ratio] 14.5 % 11.0-15.0 [facility] Estimated glomerular filtrat ion rate (GFR) non- Americanon 03-26-2024 GFR/1.73 sq M.predicted among non-blacks MDRD (S/P/Bld) [Vol rate/Area] 46 mL/min/{1.73_m2} >=60 [facility] Glucose mean value [Mass/vol ume] in Blood Estimated from glycated hemoglobinon 03-26-2024 Average glucose Estimated from glycated hemoglobin (Bld) [Mass/Vol] 275 mg/dL [facility] Hematocrit Auto (Bld) [Volum e fraction]on 03-26-2024 Hematocrit (Bld) [Volume fraction] 40.1 % 36.0-48.0 [facility] Hemoglobin [Mass/volume] in Bloodon 03-26-2024 Hemoglobin (Bld) [Mass/Vol] 12.7 g/dL 12.0-16.0 [facility] Laboratory - Chemistry and C hemistry - challengeon 03-26-2024 Calcium [Mass/Vol] 9.1 mg/dL 8.5-10.1 [facility] Chloride [Moles/Vol] 102 mmol/L 98-107 [facility] CO2 [Moles/Vol] 28.5 mmol/L 21.0-32.0 [facility] Creatinine [Mass/Vol] 1.14 mg/dL 0.55-1.02 [facility] Free T4 [Mass/Vol] 1.29 ng/dL 0.76-1.46 [facility] GFR/1.73 sq M.predicted MDRD (S/P/Bld) [Vol rate/Area] 56 mL/min/{1.73_m2} >=60 [facility] Glucose [Mass/Vol] 246 mg/dL 74-106 [facility] Natriuretic peptide B (Bld) [Mass/Vol] 2890.0 pg/mL <=1800.0 [facility] Comment on above: RESULTS CALLED TO YOEL TAI RN @BY Alla Kunz 0556 Potassium [Moles/Vol] 4.3 mmol/L 3.5-5.1 [facility] Sodium [Moles/Vol] 136 mmol/L 136-145 [facility] TSH Qn 6.001 m[IU]/L 0.358-3.740 [facility] Urea nitrogen [Mass/Vol] 35.0 mg/dL 7.0-18.0 [facility] Urea nitrogen/Creatinine [Mass ratio] 30.7 mg/mg [facility] Laboratory - Hematology and Cell countson 03-26-2024 HbA1c (Bld) [Mass fraction] 11.2 % 4.5-6.2 [facility] Comment on above: ADA RECOMMENDED LIMI T 4.0 - 6.0ADA THERAPEUTIC TARGET < 7.0ACTION SUGGESTED> 7.0 Immature granulocytes/100 WBC (Bld) 0.2 % 0.0-0.5 [facility] Leukocytes [#/volume] correc gali for nucleated erythrocytes in Blood by Automated counon 03-26-2024 WBC corrected for nucl RBC Auto (Bld) [#/Vol] 8.3 10 3/uL 4.0-11.0 [facility] Lymphocytes Auto (Bld) [#/Vo l]on 03-26-2024 Lymphocytes (Bld) [#/Vol] 1.4 10 3/uL 1.2-3.8 [facility] Lymphocytes/100 WBC Auto (Bl d)on 03-26-2024 Lymphocytes/100 WBC (Bld) 16.5 % 20.5-60.0 [facility] MCH Auto (RBC) [Entitic mass ]on 03-26-2024 MCH (RBC) [Entitic mass] 29.1 pg 26.7-34.0 [facility] MCHC Auto (RBC) [Mass/Vol]on 03-26-2024 MCHC (RBC) [Mass/Vol] 31.7 g/dL 29.9-35.2 [facility] MCV Auto (RBC) [Entitic vol] on 03-26-2024 MCV (RBC) [Entitic vol] 92.0 fL 81.0-99.0 [facility] Monocytes Auto (Bld) [#/Vol] on 03-26-2024 Monocytes (Bld) [#/Vol] 0.7 10 3/uL 0.3-0.8 [facility] Monocytes/100 WBC Auto (Bld) on 03-26-2024 Monocytes/100 WBC (Bld) 7.9 % 1.7-12.0 [facility] Neutrophils Auto (Bld) [#/Vo l]on 03-26-2024 Neutrophils (Bld) [#/Vol] 6.1 10 3/uL 1.4-6.5 [facility] Neutrophils/100 WBC Auto (Bl d)on 03-26-2024 Neutrophils/100 WBC (Bld) 73.4 % 43.0-75.0 [facility] No Panel Informationon 03-26 Eosinophils # (Auto) 0.1 10 3/uL 0.0-0.7 [facility] Immature Granulocyte # (Auto) 0.02 10 3/uL 0.00-0.03 [facility] Troponin I High Sensitivity 12.4 pg/mL 4.0-51.3 [facility] Comment on above: CUT-OFF POINTS HAVE [...] volume (Bld) [Entitic vol] 10.8 fL 9.5-13.5 [facility] Platelets Auto (Bld) [#/Vol] on 03-26-2024 Platelets (Bld) [#/Vol] 225 10 3/uL 150-450 [facility] RBC Auto (Bld) [#/Vol]on RBC (Bld) [#/Vol] 4.36 10 6/uL 4.20-5.40 [facility] Serum or plasma anion gap de terminationon 03-26-2024 Anion gap [Moles/Vol] 9.8 mmol/L [facility] MR cervical spine wo conon 0 03-13-2024 MR cervical spine wo con [place] [address] MRI Report Signed Patient: Joe Call MR#: [id number] 0 : 1945 Acct:[id number] Age/Sex: 78 / F ADM Date: 03/13/24 Loc: [facility] Room: Type: [facility] Attending Dr: Eloina Hussein MD Copies [...] Jarred Randolph M.D.03/13/2024 3:47 PM Dictation Location: [place] [address] Transcribed By: [facility] 03/13/24 1547 Dictated By: Jarred Randolph DO 03/13/24 154 Signed By: 03/13/24 1547 Normal [facility] XR pre/post mri xrayon 03-13 XR pre/post mri xray [place] [address] MRI Report Signed Patient: Joe Call MR#: [id number] 0 : 1945 Acct:[id number] Age/Sex: 78 / F ADM Date: 03/13/24 Loc: [facility] Room: Type: [facility] Attending Dr: Eloina Hussein MD Copies to: Eloina Mullins MD Ordering Provider: Eloina Mullins MD Date of Service: 03/13/24 MR/MR lumbar spine wo con: M54.50 ([id number]) XR/XR pre/post mri xray: M54.50 MRI Lumbar [...] Jarred Randolph M.D.03/13/2024 3:58 PM Dictation Location: [place] [address] Transcribed By: [facility] 03/13/24 1558 Dictated By: Jarred Randolph DO 03/13/24 1551 Signed By: 03/13/24 1558 Normal [facility] Office Visiton 03-07-2024 Follow-up visit [id number] Joe Call 1945 F Date Provider Department Center 03/07/2024 RICA DEAN LOVE [facility] Family History Problem Relation Age of Onset Coronary artery disease Other Diabetes Other Polycystic kidney disease Other Family Status - Relation Status Age at Other Level of Service:17753 HI OFFICE/OUTPATIENT ESTABLISHED MOD MDM 30 MIN Reason for Visit and Comments: Follow-up [010359] - 6 month [facility] Office Visiton 08-17-2023 Follow-up visit [id number] BassemJoe 1945 Date Provider Department Center 08/17/2023 [id number] [place] [facility] Family History Problem Relation Age of Onset Coronary artery disease Other Diabetes Other Polycystic kidney disease Other Family Status - Relation Status Age at Other Level of Service:39360 HI OFFICE/OUTPATIENT ESTABLISHED MOD MDM 30-39 MIN [facility] 36on 07-25-2023 37 Pt informed [facility] 36on 07-24-2023 37 She does not need to drink 4 bottle of water. She needs to maintain a 2 L fluid restriction. This includes all fluid not just water. In regards to sleep, I told her she would need to discuss that with her PCP. Thanks. [facility] Office Visiton 07-23-2023 Follow-up visit [id number] Joe Call 1945 Provider Department Center 07/23/2023 [id number] [place] LOVE [facility] Family History Problem Relation Age of Onset Coronary artery disease Other Diabetes Other Polycystic kidney disease Other Family Status - Relation Status Age at Other Level of Service:93133 HI OFFICE/OUTPATIENT ESTABLISHED MOD MDM 30-39 MIN [facility] Office Visiton 04-25-2023 Follow-up visit [id number] BassemJoe 1945 Date Provider Department Center 04/25/2023 RICA DEAN LOVE [facility] Family History Problem Relation Age of Onset Coronary artery disease Other Diabetes Other Polycystic kidney disease Other Family Status - Relation Status Age at Other Level of Service:06198 HI OFFICE/OUTPATIENT ESTABLISHED MOD MDM 30-39 MIN Reason for Visit and Comments: Atrial Fibrillation [80] Congestive Heart Failure [127] Hypertension [987897] [facility] GI PANEL (PCR)on 03-06-2023 Adenovirus F 40/41 Not detected Normal NOT DETECTED [facility] Comment on above: Performed By: #### P OCGLUC #### [facility] [address] [place] [address] Dr. Kasia Nath Astrovirus Not detected Normal NOT DETECTED [facility] Comment on above: Performed By: #### P OCGLUC #### [facility] [address] [place] [address] Dr. Kasia Nath C. Diff toxin A/B Detected Critically abnormal NOT DETECTED [facility] Comment on above: Performed By: #### P OCGLUC #### [facility] [address] [place] [address] Dr. Kasia Nath Campylobacter Detected Critically abnormal NOT DETECTED [facility] Comment on above: Performed By: #### P OCGLUC #### [facility] [address] [place] [address] Dr. Kasia Nath Cryptosporidium Not detected Normal NOT DETECTED [facility] Comment on above: Performed By: #### P OCGLUC #### [facility] [address] [place] [address] Dr. Kasia Nath Cyclos. Cayetanensis Not detected Normal NOT DETECTED [facility] Comment on above: Performed By: #### P OCGLUC #### [facility] [address] [place] [address] Dr. Kasia Nath E. Coli O157 Not Applicable Normal Not Applicable [facility] Comment on above: Performed By: #### P OCGLUC #### [facility] [address] [place] [address] Dr. Kasia Nath E. histolytica Not detected Normal NOT DETECTED The [facility] [place] Comment on above: Performed By: #### P OCGLUC #### [facility] [address] [place] [address] Dr. Kasia Nath EAEC Not detected Normal NOT DETECTED [facility] Comment on above: Performed By: #### P OCGLUC #### [facility] [address] [place] [address] Dr. Kasia Nath EIEC Not detected Normal NOT DETECTED [facility] Comment on above: Performed By: #### P OCGLUC #### [facility] [address] [place] [address] Dr. Kasia Nath EPEC Not detected Normal NOT DETECTED [facility] Comment on above: Performed By: #### P OCGLUC #### [facility] [address] [address] [address] Kasia Nath ETEC Not detected Normal NOT DETECTED [facility] Comment on above: Performed By: #### P OCGLUC #### [facility] [address] [address] [address] Kasia Cramer. Lamblia Not detected Normal NOT DETECTED [facility] Comment on above: Performed By: #### P OCGLUC #### [facility] [address] [address] [address] Kasia KHAN CONTROLS PASSED Normal [facility] Comment on above: Performed By: #### P OCGLUC #### [facility] [address] [address] [address] Kasia FRAIRE HEADER GI PANEL BACTERIA Normal [facility] Comment on above: Performed By: #### P OCGLUC #### [facility] [address] [address] [address] Kasia GE ECOLI GI PANEL DIARRHEAGENIC E.COLI / SHIGELLA Normal [facility] Comment on above: Performed By: #### P OCGLUC #### [facility] [address] [address] [address] Kasia GE INFO SEE BELOW Normal [facility] Comment on above: Result Comment: EAEC - Enteroaggregative E. Coli EPEC- Enteropathogenic E. Coli ETEC- Enterotoxigenic E. Coli lt/st STEC- Shigella-like toxin-producing E. Coli stx1/stx2 EIEC- Shigella/Enteroinvasive E. Coli Performed By: #### P OCGLUC #### [facility] [address] [address] [address] Kasia GE PARASITES GI PANEL PARASITES Normal [facility] Comment on above: Performed By: #### P OCGLUC #### [facility] [address] [address] [address] Kasia GE VIRUS GI PANEL VIRUSES Normal [facility] Comment on above: Performed By: #### P OCGLUC #### [facility] [address] [place] [address] Dr. Kasia Nath Norovirus GI/GII Not detected Normal NOT DETECTED [facility] Comment on above: Performed By: #### P OCGLUC #### [facility] [address] [place] [address] Dr. Kasia Garland. Shigelloides Not detected Normal NOT DETECTED [facility] Comment on above: Performed By: #### P OCGLUC #### [facility] [address] [place] [address] Dr. Kasia Nath Rotavirus A Not detected Normal NOT DETECTED [facility] Comment on above: Performed By: #### P OCGLUC #### [facility] [address] [place] [address] Dr. Kasia Nath Salmonella Not detected Normal NOT DETECTED [facility] Comment on above: Performed By: #### P OCGLUC #### [facility] [address] [place] [address] Dr. Kasia Nath Sapovirus Not detected Normal NOT DETECTED [facility] Comment on above: Performed By: #### P OCGLUC #### [facility] [address] [place] [address] Dr. Kasia Nath STEC Not detected Normal NOT DETECTED [facility] Comment on above: Performed By: #### P OCGLUC #### [facility] [address] [place] [address] Dr. Kasia Nath Vibrio Not detected Normal NOT DETECTED [facility] Comment on above: Performed By: #### P OCGLUC #### [facility] [address] [place] [address] Dr. Kasia Nath Vibrio Cholera Not detected Normal NOT DETECTED [facility] [place] Comment on above: Performed By: #### P OCGLUC #### [facility] [address] [place] [address] Dr. Kasia Nath Y. Enterocolitica Not detected Normal NOT DETECTED [facility] Comment on above: Performed By: #### P OCGLUC #### [facility] [address] [place] [address] Dr. Kasia Nath CBC AUTO DIFFon 02-14-2023 BASO # 0.0 103/ul Normal 0.0-0.1 [facility] Comment on above: Performed By: #### P OCGLUC #### [facility] [address] [address] [address] Kasia Nath Basophils/100 WBC (Bld) 0.5 % Normal 0.2-2.0 [facility] Comment on above: Performed By: #### P OCGLUC #### [facility] [address] [address] [address] Kasai Nath EO # 0.2 103/ul Normal 0.0-0.7 [facility] Comment on above: Performed By: #### P OCGLUC #### [facility] [address] [place] [address] Dr. Kasia Nath Eosinophils/100 WBC (Bld) 2.7 % Normal 0.9-7.0 [facility] Comment on above: Performed By: #### P OCGLUC #### [facility] [address] [place] [address] Dr. Kasia Nath Erythrocyte distribution width (RBC) [Ratio] 13.0 % Normal 11.0-15.0 [facility] Comment on above: Performed By: #### P OCGLUC #### [facility] [address] [place] [address] Dr. Kasia Nath Hematocrit (Bld) [Volume fraction] 35.9 % Critically low 36.0-48.0 [facility] Comment on above: Performed By: #### P OCGLUC #### [facility] [address] [place] [address] Dr. Kasia Nath Hemoglobin (Bld) [Mass/Vol] 12.0 g/dL Normal 12.0-16.0 [facility] Comment on above: Performed By: #### P OCGLUC #### [facility] [address] [place] [address] Dr. Kasia Nath IG # 0.02 10e3/ul Normal 0.00-0.03 [facility] Comment on above: Performed By: #### P OCGLUC #### [facility] [address] [place] [address] Dr. Kasia Nath IG % 0.3 % Normal 0.0-0.5 [facility] Comment on above: Performed By: #### P OCGLUC #### [facility] [address] [place] [address] Dr. Kasia Nath LYMPH # 1.8 103/ul Normal 1.2-3.8 [facility] Comment on above: Performed By: #### P OCGLUC #### [facility] [address] [place] [address] Dr. Kasia Nath Lymphocytes/100 WBC (Bld) 22.8 % Normal 20.5-60.0 [facility] Comment on above: Performed By: #### P OCGLUC #### [facility] [address] [place] [address] Dr. Kasia Nath MANUAL DIFF REQ NO Normal [facility] Comment on above: Performed By: #### P OCGLUC #### [facility] [address] [place] [address] Dr. Kasia Nath MCH (RBC) [Entitic mass] 29.4 pg Normal 26.7-34.0 [facility] Comment on above: Performed By: #### P OCGLUC #### [facility] [address] [place] [address] Dr. Kasia Nath MCHC (RBC) [Mass/Vol] 33.4 g/dL Normal 29.9-35.2 [facility] Comment on above: Performed By: #### P OCGLUC #### [facility] [address] [place] [address] Dr. Kasia Nath MCV (RBC) [Entitic vol] 88.0 fL Normal 81.0-99.0 [facility] Comment on above: Performed By: #### P OCGLUC #### [facility] [address] [place] [address] Dr. Kasia Nath MONO # 0.7 103/ul Normal 0.3-0.8 [facility] Comment on above: Performed By: #### P OCGLUC #### [facility] [address] [place] [address] Dr. Kasia Nath Monocytes/100 WBC (Bld) 9.3 % Normal 1.7-12.0 [facility] Comment on above: Performed By: #### P OCGLUC #### [facility] [address] [address] [address] Kasia Nath NEUT # 5.1 103/ul Normal 1.4-6.5 [facility] Comment on above: Performed By: #### P OCGLUC #### [facility] [address] [address] [address] Kasia Nath Neutrophils/100 WBC (Bld) 64.4 % Normal 43.0-75.0 [facility] Comment on above: Performed By: #### P OCGLUC #### [facility] [address] [address] [address] Kasia Nath Platelet mean volume (Bld) [Entitic vol] 11.7 fL Normal 9.5-13.5 [facility] Comment on above: Performed By: #### P OCGLUC #### [facility] [address] [place] [address] Dr. Kasia Nath PLT 175 103/ul Normal 150-450 [facility] Comment on above: Performed By: #### P OCGLUC #### [facility] [address] [address] [address] Kasia Nath RBC 4.08 106/ul Critically low 4.20-5.40 [facility] Comment on above: Performed By: #### P OCGLUC #### [facility] [address] [address] [address] Kasia Nath WBC 7.9 103/ul Normal 4.0-11.0 [facility] Comment on above: Performed By: #### P OCGLUC #### [facility] [address] [address] [address] Kasia Nath LIPASEon 02-14-2023 Lipase [Catalytic activity/Vol] 51.0 U/L Critically low 73.0-393.0 [facility] Comment on above: Performed By: #### L IPA, CMP ####[facility] [address] [address]Dr. Kasia Nath PROF 14(COMP METB)on 023 Albumin [Mass/Vol] 2.8 g/dL Critically low 3.4-5.[address] [facility] Comment on above: Performed By: #### L IPA, CMP ####[facility] [address] [address]Dr. Kasia Nath Albumin/Globulin [Mass ratio] 0.7 {ratio} Normal [facility] Comment on above: Performed By: #### L IPA, CMP ####[facility] [address] [address]Dr. Kasia Nath ALP [Catalytic activity/Vol] 90 U/L Normal 46-116 [facility] Comment on above: Performed By: #### L IPA, CMP ####[facility] [address] [address]Dr. Kasia Nath ALT [Catalytic activity/Vol] 15 U/L Normal 14-59 [facility] Comment on above: Performed By: #### L IPA, CMP ####[facility] [address] [address]Dr. Kasia Nath Anion gap [Moles/Vol] 15.6 mmol/L Normal [facility] Comment on above: Performed By: #### L IPA, CMP ####[facility] [address] [address]Dr. Kasia Nath AST [Catalytic activity/Vol] 9 U/L Critically low 15-37 [facility] Comment on above: Performed By: #### L IPA, CMP ####[facility] [address] [address]Dr. Kasia Nath Bilirubin [Mass/Vol] 0.4 mg/dL Normal 0.2-1.0 [facility] Comment on above: Performed By: #### L IPA, CMP ####[facility] [address] [address]Dr. Kasia Nath Calcium [Mass/Vol] 9.1 mg/dL Normal 8.5-10.1 [facility] Comment on above: Performed By: #### L IPA, CMP ####[facility] [address] [address]Dr. Kasia Nath Chloride [Moles/Vol] 104 mmol/L Normal 98-107 [facility] Comment on above: Performed By: #### L IPA, CMP ####[facility] [address] [address]Dr. Kasia Nath CO2 [Moles/Vol] 17.0 mmol/L Critically low 21.0-32.0 [facility] Comment on above: Performed By: #### L IPA, CMP ####[facility] [address] [place], [place] [address]Dr. Kasia Nath Creatinine [Mass/Vol] 1.78 mg/dL Critically high 0.55-1.02 [facility] Comment on above: Performed By: #### L IPA, CMP ####[facility] [address] [place], [place] [address]Dr. Kasia Portillo EGFR-AF TAJIK 34 mL/min/1.73m2 Critically low >=60 [facility] Comment on above: Performed By: #### L IPA, CMP ####[facility] [address] [place], [place] [address]Dr. Kasia Portillo EGFR-NON AF TAJIK 28 mL/min/1.73m2 Critically low >=60 [facility] Comment on above: Performed By: #### L IPA, CMP ####[facility] [address] [place], [place] [address]Dr. Kasia Portillo Globulin (S) [Mass/Vol] 4.3 g/dL Normal [facility] Comment on above: Performed By: #### L IPA, CMP ####[facility] [address] [place], [place] [address]Dr. Kasia Portillo Glucose [Mass/Vol] 248 mg/dL Critically high 74-106 [facility] Comment on above: Performed By: #### L IPA, CMP ####[facility] [address] [place], [place] [address]Dr. aFrtuncristy Nath Potassium [Moles/Vol] 4.6 mmol/L Normal 3.5-5.1 [facility] Comment on above: Performed By: #### L IPA, CMP ####[facility] [address] [place], [place] [address]Dr. Kasia Nath Protein [Mass/Vol] 7.1 g/dL Normal 6.4-8.2 [facility] Comment on above: Performed By: #### L IPA, CMP ####[facility] [address] [place], [place] [address]Dr. Kasia Nath Sodium [Moles/Vol] 132 mmol/L Critically low 136-[address] [facility] Comment on above: Performed By: #### L IPA, CMP ####[facility] [address] [place], [place] [address]Dr. Kasia Nath Urea nitrogen [Mass/Vol] 78.0 mg/dL Critically high 7.0-18.0 [facility] Comment on above: Performed By: #### L IPA, CMP ####[facility] [address] [place], [place] [address]Dr. Kasia Nath Urea nitrogen/Creatinine [Mass ratio] 43.8 mg/mg Normal [facility] Comment on above: Performed By: #### L IPA, CMP ####[facility] [address] [place], [place] [address]Dr. Kasia Nath CBC AUTO DIFFon 02-13-2023 BASO # 0.0 103/ul Normal 0.0-0.1 [facility] Comment on above: Performed By: #### C BC ####[facility] [address] [place], [place] [address]Dr. Kasia Nath Basophils/100 WBC (Bld) 0.5 % Normal 0.2-2.0 [facility] Comment on above: Performed By: #### C BC ####[facility] [address] [place], [place] [address]Dr. Kasia Nath EO # 0.1 103/ul Normal 0.0-0.7 [facility] Comment on above: Performed By: #### C BC ####[facility] [address] [place], [place] [address]Dr. Kasia Nath Eosinophils/100 WBC (Bld) 1.0 % Normal 0.9-7.0 [facility] Comment on above: Performed By: #### C BC ####[facility] [address] [place], [place] [address]Dr. Kasia Nath Erythrocyte distribution width (RBC) [Ratio] 12.8 % Normal 11.0-15.0 [facility] Comment on above: Performed By: #### C BC ####[facility] [address] [place], [place] [address]Dr. Kasia Nath Hematocrit (Bld) [Volume fraction] 38.5 % Normal 36.0-48.0 [facility] Comment on above: Performed By: #### C BC ####[facility] [address] [place], [place] [address]Dr. Kasia Nath Hemoglobin (Bld) [Mass/Vol] 13.0 g/dL Normal 12.0-16.0 [facility] Comment on above: Performed By: #### C BC ####[facility] [address] [place], [place] [address]Dr. Kasia Nath IG # 0.02 10e3/ul Normal 0.00-0.03 [facility] Comment on above: Performed By: #### C BC ####[facility] [address] [place], [place] [address]Dr. Kasia Nath IG % 0.2 % Normal 0.0-0.5 [facility] Comment on above: Performed By: #### C BC ####[facility] [address] [place], [place] [address]Dr. Kasia Nath LYMPH # 0.9 103/ul Critically low 1.2-3.8 [facility] Comment on above: Performed By: #### C BC ####[facility] [address] [place], [place] [address]Dr. Kasia Nath Lymphocytes/100 WBC (Bld) 10.0 % Critically low 20.5-60.0 [facility] Comment on above: Performed By: #### C BC ####[facility] [address] [place], [place] [address]Dr. Fartuncirsty Nath MANUAL DIFF REQ NO Normal [facility] Comment on above: Performed By: #### C BC ####[facility] [address] [address]Dr. Kasia Portillo MCH (RBC) [Entitic mass] 29.5 pg Normal 26.7-34.0 [facility] Comment on above: Performed By: #### C BC ####[facility] [address] [place], [place] [address]Dr. Kasia Portillo MCHC (RBC) [Mass/Vol] 33.8 g/dL Normal 29.9-35.2 [facility] Comment on above: Performed By: #### C BC ####[facility] [address] [place], [place] [address]Dr. Fartuncristy Nath MCV (RBC) [Entitic vol] 87.5 fL Normal 81.0-99.0 [facility] Comment on above: Performed By: #### C BC ####[facility] [address] [place], [place] [address]Dr. Kasia Nath MONO # 0.5 103/ul Normal 0.3-0.8 [facility] Comment on above: Performed By: #### C BC ####[facility] [address] [place], [place] [address]Dr. Kasia Nath Monocytes/100 WBC (Bld) 5.7 % Normal 1.7-12.0 [facility] Comment on above: Performed By: #### C BC ####[facility] [address] [place], [place] [address]DrDoreen Nath NEUT # 7.2 103/ul Critically high 1.4-6.5 [facility] Comment on above: Performed By: #### C BC ####[facility] [address] [place], [place] [address]DrDoreen Nath Neutrophils/100 WBC (Bld) 82.6 % Critically high 43.0-75.0 [facility] Comment on above: Performed By: #### C BC ####[facility] [address] [place], [place] [address]Dr. Kasia Nath Platelet mean volume (Bld) [Entitic vol] 11.8 fL Normal 9.5-13.5 [facility] Comment on above: Performed By: #### C BC ####[facility] [address] [place], [place] [address]Ba. Kasia Nath PLT 187 103/ul Normal 150-450 [facility] Comment on above: Performed By: #### C BC ####[facility] [address] [place], [place] [address]Xu. Kasia Nath RBC 4.40 106/ul Normal 4.20-5.40 [facility] Comment on above: Performed By: #### C BC ####[facility] [address] [place], [place] [address]Br. Kasia Nath WBC 8.8 103/ul Normal 4.0-11.0 [facility] Comment on above: Performed By: #### C BC ####[facility] [address] [place], [place] [address]Vg. Kasia Nath CT ABD/PELVIS WO CONon 02-13 [...] JACOB MCCURDY Date: 2023-02-13 14:40 Normal [facility] CULTURE URINEon 02-13-2023 CULTURE URINE Culture Observations : LIGHT GROWTH OF MIXED GENITAL VON. NO POTENTIAL PATHOGENS SEEN. Normal [facility] Comment on above: Performed By: #### U RCX ####[facility] [address] [place], [place] [address]UhDr. Kasia Nath Covid-19 PCR ([facility])on SARS-CoV-2 (COVID-19) RNA FERN+probe Ql (Unsp spec) Not detected Normal NOT DETECTED [facility] Comment on above: Result Comment: When diagnostic [...] for this test is supported by the [employer] of [employer] and Human Service's declaration that [...] used). Performed By: #### P OCGLUC #### [facility] [address] [place], [place] [address] Dr. Kasia Nath GI PANEL (PCR)on 02-13-2023 Adenovirus F 40/41 Not detected Normal NOT DETECTED [facility] Comment on above: Performed By: #### C BC #### [facility] [address] [place] [address] Dr. Kasia Nath Astrovirus Not detected Normal NOT DETECTED [facility] Comment on above: Performed By: #### C BC #### [facility] [address] [place] [address] Dr. Kasia Del Real. Diff toxin A/B Not detected Normal NOT DETECTED [facility] Comment on above: Performed By: #### C BC #### [facility] [address] [place] [address] Dr. Kasia Nath Campylobacter Not detected Normal NOT DETECTED [facility] Comment on above: Performed By: #### C BC #### [facility] [address] [place] [address] Dr. Kasia Nath Cryptosporidium Not detected Normal NOT DETECTED [facility] Comment on above: Performed By: #### C BC #### [facility] [address] [place] [address] Dr. Kasia Nath Cyclos. Cayetanensis Not detected Normal NOT DETECTED [facility] Comment on above: Performed By: #### C BC #### [facility] [address] [place] [address] Dr. Kasia Nath E. Coli O157 Not Applicable Normal Not Applicable [facility] Comment on above: Performed By: #### C BC #### [facility] [address] [place] [address] Dr. Kasia Nath E. histolytica Not detected Normal NOT DETECTED [facility] [place] Comment on above: Performed By: #### C BC #### [facility] [address] [place] [address] Dr. Kasia Nath EAEC Not detected Normal NOT DETECTED [facility] Comment on above: Performed By: #### C BC #### [facility] [address] [place] [address] Dr. Kasia Nath EIEC Not detected Normal NOT DETECTED [facility] Comment on above: Performed By: #### C BC #### [facility] [address] [place] [address] Dr. Kasia Nath EPEC Not detected Normal NOT DETECTED [facility] Comment on above: Performed By: #### C BC #### [facility] [address] [address] [address] Kasia Nath ETEC Not detected Normal NOT DETECTED [facility] Comment on above: Performed By: #### C BC #### [facility] [address] [address] [address] Kasia Nath G. Lamblia Not detected Normal NOT DETECTED [facility] Comment on above: Performed By: #### C BC #### [facility] [address] [address] [address] Kasia KHAN CONTROLS PASSED Normal [facility] Comment on above: Performed By: #### C BC #### [facility] [address] [address] [address] Kasia FRAIRE HEADER GI PANEL BACTERIA Normal [facility] Comment on above: Performed By: #### C BC #### [facility] [address] [address] [address] Kasia GE ECOLI GI PANEL DIARRHEAGENIC E.COLI / SHIGELLA Normal [facility] Comment on above: Performed By: #### C BC #### [facility] [address] [place] [address] Dr. Kasia GE INFO SEE BELOW [facility] Comment on above: Result Comment: EAEC - Enteroaggregative E. Coli EPEC- Enteropathogenic E. Coli ETEC- Enterotoxigenic E. Coli lt/st STEC- Shigella-like toxin-producing E. Coli stx1/stx2 EIEC- Shigella/Enteroinvasive E. Coli Performed By: #### C BC #### [facility] [address] [place] [address] Dr. Kasia GE PARASITES GI PANEL PARASITES Normal [facility] Comment on above: Performed By: #### C BC #### [facility] [address] [address] [address] Kasia GE VIRUS GI PANEL VIRUSES Normal [facility] Comment on above: Performed By: #### C BC #### [facility] [address] [place] [address] Dr. Kasia Nath Norovirus GI/GII Not detected Normal NOT DETECTED [facility] Comment on above: Performed By: #### C BC #### [facility] [address] [place] [address] Dr. Kasia Garland. Shigelloides Not detected Normal NOT DETECTED [facility] Comment on above: Performed By: #### C BC #### [facility] [address] [place] [address] Dr. Kasia Nath Rotavirus A Not detected Normal NOT DETECTED [facility] Comment on above: Performed By: #### C BC #### [facility] [address] [place] [address] Dr. Kasia Nath Salmonella Not detected Normal NOT DETECTED [facility] Comment on above: Performed By: #### C BC #### [facility] [address] [place] [address] Dr. Kasia Nath Sapovirus Not detected Normal NOT DETECTED [facility] Comment on above: Performed By: #### C BC #### [facility] [address] [place] [address] Dr. Kasia Nath STEC Not detected Normal NOT DETECTED [facility] Comment on above: Performed By: #### C BC #### [facility] [address] [place] [address] Dr. Kasia Nath Vibrio Not detected Normal NOT DETECTED [facility] Comment on above: Performed By: #### C BC #### [facility] [address] [place] [address] Dr. Kasia Nath Vibrio Cholera Not detected Normal NOT DETECTED [facility] Comment on above: Performed By: #### C BC #### [facility] [address] [place] [address] Dr. Kasia Nath Y. Enterocolitica Not detected Normal NOT DETECTED [facility] Comment on above: Performed By: #### C BC #### [facility] [address] [place] [address] Dr. Kasia Nath LACTATE/LACTIC ACIDon 2022 Lactate [Moles/Vol] 1.7 mmol/L Normal 0.4-2.0 [facility] Comment on above: Performed By: #### L ACT ####[facility] [address] [address]Dr. Kasia Nath LIPASEon 02-13-2023 Lipase [Catalytic activity/Vol] 82.0 U/L Normal 73.0-393.0 [facility] Comment on above: Performed By: #### L IPA, CMP #### [facility] [address] [address] [address] Kasia Nath POINT OF CARE GLUCOSEon Glucose [Mass/Vol] 229 mg/dL Critically high 74-106 [facility] Comment on above: Performed By: #### P OCGLUC #### [facility] [address] [place] [address] Dr. Kasia Nath Glucose [Mass/Vol] 474 mg/dL Critically high 74-106 [facility] Comment on above: Performed By: #### P OCGLUC #### [facility] [address] [place] [address] Dr. Kasia Nath PROF 14(COMP METB)on 023 Albumin [Mass/Vol] 3.4 g/dL Normal 3.4-5.0 [facility] Comment on above: Performed By: #### L IPA, CMP #### [facility] [address] [place] [address] Dr. Kasia Nath Albumin/Globulin [Mass ratio] 0.7 {ratio} Normal [facility] Comment on above: Performed By: #### L IPA, CMP #### [facility] [address] [place] [address] Dr. Kasia Nath ALP [Catalytic activity/Vol] 106 U/L Normal 46-116 [facility] Comment on above: Performed By: #### L IPA, CMP #### [facility] [address] [place] [address] Dr. Kasia Nath ALT [Catalytic activity/Vol] 21 U/L Normal 14-59 [facility] Comment on above: Performed By: #### L IPA, CMP #### [facility] [address] [address] [address] Kasia Nath Anion gap [Moles/Vol] 17.7 mmol/L Normal [facility] Comment on above: Performed By: #### L IPA, CMP #### [facility] [address] [address] [address] Kasia Nath AST [Catalytic activity/Vol] 11 U/L Critically low 15-37 [facility] Comment on above: Performed By: #### L IPA, CMP #### [facility] [address] [address] [address] Kasia Nath Bilirubin [Mass/Vol] 0.5 mg/dL Normal 0.2-1.0 [facility] Comment on above: Performed By: #### L IPA, CMP #### [facility] [address] [place] [address] Dr. Kasia Nath Calcium [Mass/Vol] 9.6 mg/dL Normal 8.5-10.1 [facility] Comment on above: Performed By: #### L IPA, CMP #### [facility] [address] [address] [address] Kasia Nath Chloride [Moles/Vol] 99 mmol/L Normal 98-107 [facility] Comment on above: Performed By: #### L IPA, CMP #### [facility] [address] [address] [address] Kasia Nath CO2 [Moles/Vol] 20.6 mmol/L Critically low 21.0-32.0 [facility] Comment on above: Performed By: #### L IPA, CMP #### [facility] [address] [address] [address] Kasia Nath Creatinine [Mass/Vol] 2.14 mg/dL Critically high 0.55-1.02 [facility] Comment on above: Performed By: #### L IPA, CMP #### [facility] [address] [address] [address] Kasia Nath EGFR-AF TAJIK 27 mL/min/1.73m2 Critically low >=60 [facility] Comment on above: Performed By: #### L IPA, CMP #### [facility] [address] [address] [address] Kasia Nath EGFR-NON AF TAJIK 22 mL/min/1.73m2 Critically low >=60 [facility] Comment on above: Performed By: #### L IPA, CMP #### [facility] [address] [address] [address] Kasia Nath Globulin (S) [Mass/Vol] 4.8 g/dL Normal [facility] Comment on above: Performed By: #### L IPA, CMP #### [facility] [address] [address] [address] Kasia Nath Glucose [Mass/Vol] 498 mg/dL Critically high 74-106 [facility] Comment on above: Performed By: #### L IPA, CMP #### [facility] [address] [address] [address] Kasia Nath Potassium [Moles/Vol] 5.3 mmol/L Critically high 3.5-5.1 [facility] Comment on above: Performed By: #### L IPA, CMP #### [facility] [address] [address] [address] Kasia Nath Protein [Mass/Vol] 8.2 g/dL Normal 6.4-8.2 [facility] Comment on above: Performed By: #### L IPA, CMP #### [facility] [address] [address] [address] Kasia Nath Sodium [Moles/Vol] 132 mmol/L Critically low 136-[address] [facility] Comment on above: Performed By: #### L IPA, CMP #### [facility] [address] [address] [address] Kasia Nath Urea nitrogen [Mass/Vol] 86.0 mg/dL Critically high 7.0-18.0 [facility] Comment on above: Performed By: #### L IPA, CMP #### [facility] [address] [address] [address] Kasia Nath Urea nitrogen/Creatinine [Mass ratio] 40.2 mg/mg Normal [facility] Comment on above: Performed By: #### L IPA, CMP #### [facility] [address] [address] [address] Kasia Nath UA RANDOM W/MICROSCOPICon BACTERIA TRACE Abnormal NONE SEEN [facility] Comment on above: Performed By: #### U AMIC ####[facility] [address] [address]Dr. Kasia Nath Bilirubin Ql (U) Negative Normal NEGATIVE [facility] Comment on above: Performed By: #### U AMIC ####[facility] [address] [address]Dr. Kasia Nath CAST SEEN Abnormal NONE SEEN [facility] Comment on above: Performed By: #### U AMIC ####[facility] [address] [address]Dr. Kasia Nath Clarity (U) CLEAR Normal CLEAR [facility] Comment on above: Performed By: #### U AMIC ####[facility] [address] [address]Dr. Kasia Nath Color (U) LT. YELLOW Normal YELLOW [facility] Comment on above: Performed By: #### U AMIC ####[facility] [address] [address]Dr. Kasia Nath Crystals LM Nom (Urine sed) NONE SEEN Normal NONE SEEN [facility] Comment on above: Performed By: #### U AMIC ####[facility] [address] [address]Dr. Kasia Nath Epithelial cells LM Ql (Urine sed) FEW Abnormal NONE SEEN /RARE [facility] Comment on above: Performed By: #### U AMIC ####[facility] [address] [address]Dr. Kasia Nath Glucose Ql (U) >1000 Abnormal NEGATIVE [facility] Comment on above: Performed By: #### U AMIC ####[facility] [address] [address]Dr. Kasia Nath Hemoglobin Ql (U) Negative Normal NEGATIVE [facility] Comment on above: Performed By: #### U AMIC ####[facility] [address] [address]Dr. Kasia Nath HYALINE CAST RARE Normal [facility] Comment on above: Performed By: #### U AMIC ####[facility] [address] [address]Dr. Fartuncristy Nath Ketones Ql (U) Negative Normal NEGATIVE [facility] Comment on above: Performed By: #### U AMIC ####[facility] [address] [address]Dr. Kasia Nath LEUKOCYTES Negative Normal NEGATIVE [facility] Comment on above: Performed By: #### U AMIC ####[facility] [address] [address]Dr. Kasia Nath MUCOUS NONE SEEN Normal NONE SEEN [facility] Comment on above: Performed By: #### U AMIC ####[facility] [address] [address]Dr. Kasia Nath Nitrite Ql (U) Negative Normal NEGATIVE [facility] Comment on above: Performed By: #### U AMIC ####[facility] [address] [place], [place] [address]Dr. Kasia Nath pH (U) 5.5 [pH] Normal 5-9 [facility] Comment on above: Performed By: #### U AMIC ####[facility] [address] [place] [address]Dr. Kasia Nath RBC 0-2 Normal 0-2 [facility] Comment on above: Performed By: #### U AMIC ####[facility] [address] [address]Dr. Kasia Nath SPEC GRAVITY 1.015 Normal 1.005-<=1.025 [facility] Comment on above: Performed By: #### U AMIC ####[facility] [address] [place] [address]Dr. Kasia Nath UA PROTEIN TRACE Normal NEGATIVE/ TRACE [facility] Comment on above: Performed By: #### U AMIC ####[facility] [address] [place] [address]Dr. Kasia Nath Urobilinogen Qn (U) 0.2 {Meka'U}/dL Normal 0.2 - 1. 0 [facility] Comment on above: Performed By: #### U AMIC ####[facility] [address] [place], [place] [address]Dr. Kasia Nath WBC 0-2 Abnormal NONE SEEN [facility] Comment on above: Performed By: #### U AMIC ####[facility] [address] [place], [place] [address]Dr. Kasia Nath BNPon 01-16-2023 Natriuretic peptide B (Bld) [Mass/Vol] 1675.0 pg/mL Normal <=1,800.0 [facility] Comment on above: Performed By: #### B TELECOMMUNICATIONS ANALYST, CMP ####[facility] [address] [place], [place] [address]Dr. Kasia Nath PROF 14(COMP METB)on 023 Albumin [Mass/Vol] 3.4 g/dL Normal 3.4-5.0 [facility] Comment on above: Performed By: #### B TELECOMMUNICATIONS ANALYST, CMP ####[facility] [address] [place], [place] [address]Dr. Kasia Nath Albumin/Globulin [Mass ratio] 0.8 {ratio} Normal [facility] Comment on above: Performed By: #### B TELECOMMUNICATIONS ANALYST, CMP ####[facility] [address] [place], [place] [address]Dr. Kasia Nath ALP [Catalytic activity/Vol] 99 U/L Normal 46-116 [facility] Comment on above: Performed By: #### B TELECOMMUNICATIONS ANALYST, CMP ####[facility] [address] [place], [place] [address]Dr. Kasia Nath ALT [Catalytic activity/Vol] 18 U/L Normal 14-59 [facility] Comment on above: Performed By: #### B TELECOMMUNICATIONS ANALYST, CMP ####[facility] [address] [place], [place] [address]Dr. Kasia Nath Anion gap [Moles/Vol] 10.6 mmol/L Normal [facility] Comment on above: Performed By: #### B TELECOMMUNICATIONS ANALYST, CMP ####[facility] [address] [place], [place] [address]Dr. Kasia Nath AST [Catalytic activity/Vol] 15 U/L Normal 15-37 [facility] Comment on above: Performed By: #### B TELECOMMUNICATIONS ANALYST, CMP ####[facility] [address] [place], [place] [address]Dr. Kasia Nath Bilirubin [Mass/Vol] 0.5 mg/dL Normal 0.2-1.0 [facility] Comment on above: Performed By: #### B TELECOMMUNICATIONS ANALYST, CMP ####[facility] [address] [place], [place] [address]Dr. Kasia Nath Calcium [Mass/Vol] 9.1 mg/dL Normal 8.5-10.1 [facility] Comment on above: Performed By: #### B TELECOMMUNICATIONS ANALYST, CMP ####[facility] S[address] [place], [place] [address]Dr. Kasia Nath Chloride [Moles/Vol] 98 mmol/L Normal 98-107 [facility] Comment on above: Performed By: #### B TELECOMMUNICATIONS ANALYST, CMP ####[facility] Qxp[address]rx[address] [place], [place] [address]Dr. Kasia Nath CO2 [Moles/Vol] 30.4 mmol/L Normal 21.0-32.0 [facility] Comment on above: Performed By: #### B TELECOMMUNICATIONS ANALYST, CMP ####[facility] [address] [place], [place] [address]Dr. Kasia Nath Creatinine [Mass/Vol] 1.44 mg/dL Critically high 0.55-1.02 [facility] Comment on above: Performed By: #### B TELECOMMUNICATIONS ANALYST, CMP ####[facility] [address] [place], [place] [address]Dr. Kasia Portillo EGFR-AF TAJIK 43 mL/min/1.73m2 Critically low >=60 [facility] Comment on above: Performed By: #### B TELECOMMUNICATIONS ANALYST, CMP ####[facility] [address] [place], [place] [address]Dr. Yicristy Nath EGFR-NON AF TAJIK 35 mL/min/1.73m2 Critically low >=60 [facility] Comment on above: Performed By: #### B TELECOMMUNICATIONS ANALYST, CMP ####[facility] [address] [place], [place] [address]Dr. Kasia Nath Globulin (S) [Mass/Vol] 4.4 g/dL Normal [facility] Comment on above: Performed By: #### B TELECOMMUNICATIONS ANALYST, CMP ####[facility] [address] [place], [place] [address]Dr. Kasia Nath Glucose [Mass/Vol] 401 mg/dL Critically high 74-106 [facility] Comment on above: Performed By: #### B TELECOMMUNICATIONS ANALYST, CMP ####[facility] [address] [place], [place] [address]Dr. Kasia Nath Potassium [Moles/Vol] 5.0 mmol/L Normal 3.5-5.1 [facility] Comment on above: Performed By: #### B TELECOMMUNICATIONS ANALYST, CMP ####[facility] [address] [place], [place] [address]Dr. Kasia Nath Protein [Mass/Vol] 7.8 g/dL Normal 6.4-8.2 [facility] Comment on above: Performed By: #### B TELECOMMUNICATIONS ANALYST, CMP ####[facility] [address] [place], [place] [address]Dr. Kasia Nath Sodium [Moles/Vol] 134 mmol/L Critically low 136-[address] [facility] Comment on above: Performed By: #### B TELECOMMUNICATIONS ANALYST, CMP ####[facility] [address] [place], [place] [address]Dr. Kasia Nath Urea nitrogen [Mass/Vol] 46.0 mg/dL Critically high 7.0-18.0 [facility] Comment on above: Performed By: #### B TELECOMMUNICATIONS ANALYST, CMP ####[facility] [address] [place], [place] [address]Dr. Kasia Nath Urea nitrogen/Creatinine [Mass ratio] 31.9 mg/mg Normal [facility] Comment on above: Performed By: #### B TELECOMMUNICATIONS ANALYST, CMP ####[facility] [address] [place] [address] Kasia Nath BNPon 01-05-2023 Natriuretic peptide B (Bld) [Mass/Vol] 1389.0 pg/mL Normal <=1,800.0 [facility] Comment on above: Performed By: #### B TELECOMMUNICATIONS ANALYST, CMADM, CMP ####[facility] [address] [address]Dr. Kasia Nath CARDIAC EMERY ADMITon 023 CK [Catalytic activity/Vol] 138 U/L Normal 26-192 [facility] Comment on above: Performed By: #### B TELECOMMUNICATIONS ANALYST, CMADM, CMP ####[facility] [address] [address]Dr. Kasia Nath CK.MB [Mass/Vol] 2.22 ng/mL Normal <=3.60 [facility] Comment on above: Performed By: #### B TELECOMMUNICATIONS ANALYST, CMADM, CMP ####[facility] [address] [address]Dr. Kasia Nath HSTROP 15.9 pg/mL Normal 4.0-51.3 [facility] Comment on above: Result Comment: CUT- OFF POINTS HAVE BEEN ESTABLISHED BASED ON THE FOURTH UNIVERSAL DEFINITIONS OF MYOCARDIAL INFARCTION. THE UPPER REFERENCE LIMIT (URL) OF TROPONIN, DEFINED THE 99TH PERCENTILE OF cTnI DISTRIBUTION IN A REFERENCE POPULATION, HAS BEEN CONFIRMED THE DECISION THRESHOLD FOR UT DIAGNOSIS. Performed By: #### B TELECOMMUNICATIONS ANALYST, CMADM, CMP ####[facility] [address] [address]DrDoreen Nath GRETTA 178 ng/mL Critically high 9-82 [facility] Comment on above: Performed By: #### B TELECOMMUNICATIONS ANALYST, CMADM, CMP ####[facility] [address] [address]DrDoreen Nath CBC AUTO DIFFon 01-05-2023 BASO # 0.1 103/ul Normal 0.0-0.1 [facility] Comment on above: Performed By: #### C BC #### [facility] [address] [address] [address] Kasia Nath Basophils/100 WBC (Bld) 0.7 % Normal 0.2-2.0 [facility] Comment on above: Performed By: #### C BC #### [facility] [address] [place] [address] Dr. Kasia Nath EO # 0.3 103/ul Normal 0.0-0.7 [facility] Comment on above: Performed By: #### C BC #### [facility] [address] [place] [address] Dr. Kasia Nath Eosinophils/100 WBC (Bld) 2.9 % Normal 0.9-7.0 [facility] Comment on above: Performed By: #### C BC #### [facility] [address] [place] [address] Dr. Kasia Nath Erythrocyte distribution width (RBC) [Ratio] 13.5 % Normal 11.0-15.0 [facility] Comment on above: Performed By: #### C BC #### [facility] [address] [place] [address] Dr. Kasia Nath Hematocrit (Bld) [Volume fraction] 39.8 % Normal 36.0-48.0 [facility] Comment on above: Performed By: #### C BC #### [facility] [address] [place] [address] Dr. Kasia Nath Hemoglobin (Bld) [Mass/Vol] 13.5 g/dL Normal 12.0-16.0 [facility] Comment on above: Performed By: #### C BC #### [facility] [address] [place] [address] Dr. Kasia Nath IG # 0.02 10e3/ul Normal 0.00-0.03 [facility] Comment on above: Performed By: #### C BC #### [facility] [address] [place] [address] Dr. Kasia Nath IG % 0.2 % Normal 0.0-0.5 [facility] Comment on above: Performed By: #### C BC #### [facility] [address] [place] [address] Dr. Kasia Nath LYMPH # 1.9 103/ul Normal 1.2-3.8 [facility] Comment on above: Performed By: #### C BC #### [facility] [address] [place] [address] Dr. Kasia Nath Lymphocytes/100 WBC (Bld) 22.0 % Normal 20.5-60.0 [facility] Comment on above: Performed By: #### C BC #### [facility] [address] [place] [address] Dr. Kasia Nath MANUAL DIFF REQ NO Normal [facility] Comment on above: Performed By: #### C BC #### [facility] [address] [place] [address] Dr. Kasia Nath MCH (RBC) [Entitic mass] 29.8 pg Normal 26.7-34.0 [facility] Comment on above: Performed By: #### C BC #### [facility] [address] [place] [address] Dr. Kasia Nath MCHC (RBC) [Mass/Vol] 33.9 g/dL Normal 29.9-35.2 [facility] Comment on above: Performed By: #### C BC #### [facility] [address] [place] [address] Dr. Kasia Nath MCV (RBC) [Entitic vol] 87.9 fL Normal 81.0-99.0 [facility] Comment on above: Performed By: #### C BC #### [facility] [address] [place] [address] Dr. Kasia Nath MONO # 0.8 103/ul Normal 0.3-0.8 [facility] Comment on above: Performed By: #### C BC #### [facility] [address] [place] [address] Dr. Kasia Nath Monocytes/100 WBC (Bld) 8.8 % Normal 1.7-12.0 [facility] Comment on above: Performed By: #### C BC #### [facility] [address] [place] [address] Dr. Kasia Nath NEUT # 5.6 103/ul Normal 1.4-6.5 [facility] Comment on above: Performed By: #### C BC #### [facility] [address] [address] [address] Kasia Nath Neutrophils/100 WBC (Bld) 65.4 % Normal 43.0-75.0 [facility] Comment on above: Performed By: #### C BC #### [facility] [address] [address] [address] Kasia Nath Platelet mean volume (Bld) [Entitic vol] 10.6 fL Normal 9.5-13.5 [facility] Comment on above: Performed By: #### C BC #### [facility] [address] [address] [address] Kasia Nath PLT 222 103/ul Normal 150-450 [facility] Comment on above: Performed By: #### C BC #### [facility] [address] [place] [address] Dr. Kasia Nath RBC 4.53 106/ul Normal 4.20-5.40 [facility] Comment on above: Performed By: #### C BC #### [facility] [address] [place] [address] Dr. Kasia Nath WBC 8.6 103/ul Normal 4.0-11.0 [facility] Comment on above: Performed By: #### C BC #### [facility] [address] [place] [address] Dr. Kasia Nath PROF 14(COMP METB)on 023 Albumin [Mass/Vol] 3.3 g/dL Critically low 3.4-5.0 [facility] Comment on above: Performed By: #### B TELECOMMUNICATIONS ANALYST, CMADM, CMP #### [facility] [address] [place] [address] Dr. Kasia Nath Albumin/Globulin [Mass ratio] 0.7 {ratio} Normal [facility] Comment on above: Performed By: #### B TELECOMMUNICATIONS ANALYST, CMADM, CMP #### [facility] [address] [place] [address] Dr. Kasia Nath ALP [Catalytic activity/Vol] 106 U/L Normal 46-116 [facility] Comment on above: Performed By: #### B TELECOMMUNICATIONS ANALYST, CMADM, CMP #### [facility] [address] [address] [address] Kasia Nath ALT [Catalytic activity/Vol] 22 U/L Normal 14-59 [facility] Comment on above: Performed By: #### B TELECOMMUNICATIONS ANALYST, CMADM, CMP #### [facility] [address] [address] [address] Kasia Nath Anion gap [Moles/Vol] 12.0 mmol/L Normal [facility] Comment on above: Performed By: #### B TELECOMMUNICATIONS ANALYST, CMADM, CMP #### [facility] [address] [address] [address] Kasia Nath AST [Catalytic activity/Vol] 23 U/L Normal 15-37 [facility] Comment on above: Performed By: #### B TELECOMMUNICATIONS ANALYST, CMADM, CMP #### [facility] [address] [place] [address] Dr. Kasia Nath Bilirubin [Mass/Vol] 0.7 mg/dL Normal 0.2-1.0 [facility] Comment on above: Performed By: #### B TELECOMMUNICATIONS ANALYST, CMADM, CMP #### [facility] [address] [place] [address] Dr. Kasia Nath Calcium [Mass/Vol] 8.8 mg/dL Normal 8.5-10.1 [facility] Comment on above: Performed By: #### B TELECOMMUNICATIONS ANALYST, CMADM, CMP #### [facility] [address] [place] [address] Dr. Kasia Nath Chloride [Moles/Vol] 98 mmol/L Normal 98-107 [facility] Comment on above: Performed By: #### B TELECOMMUNICATIONS ANALYST, CMADM, CMP #### [facility] [address] [place] [address] Dr. Kasia Nath CO2 [Moles/Vol] 30.2 mmol/L Normal 21.0-32.0 [facility] Comment on above: Performed By: #### B TELECOMMUNICATIONS ANALYST, CMADM, CMP #### [facility] [address] [place] [address] Dr. Kasia Nath Creatinine [Mass/Vol] 1.19 mg/dL Critically high 0.55-1.02 [facility] Comment on above: Performed By: #### B TELECOMMUNICATIONS ANALYST, LEONORA, CMP #### [facility] [address] [address] [address] Kasia Nath EGFR-AF TAJIK 53 mL/min/1.73m2 Critically low >=60 [facility] Comment on above: Performed By: #### B TELECOMMUNICATIONS ANALYST, MACDM, CMP #### [facility] [address] [address] [address] Kasia Nath EGFR-NON AF TAJIK 44 mL/min/1.73m2 Critically low >=60 [facility] Comment on above: Performed By: #### B TELECOMMUNICATIONS ANALYST, LEONORA, CMP #### [facility] [address] [place] [address] Dr. Kasia Nath Globulin (S) [Mass/Vol] 4.7 g/dL Normal [facility] Comment on above: Performed By: #### B TELECOMMUNICATIONS ANALYST, MACDM, CMP #### [facility] [address] [address] [address] Kasia Nath Glucose [Mass/Vol] 124 mg/dL Critically high 74-106 [facility] Comment on above: Performed By: #### B TELECOMMUNICATIONS ANALYSTLEONORA, CMP #### [facility] [address] [place] [address] Dr. Kasia Nath Potassium [Moles/Vol] 3.2 mmol/L Critically low 3.5-5.1 [facility] Comment on above: Performed By: #### B TELECOMMUNICATIONS ANALYST, MACDM, CMP #### [facility] [address] [address] [address] Kasia Nath Protein [Mass/Vol] 8.0 g/dL Normal 6.4-8.2 [facility] [place] Comment on above: Performed By: #### B TELECOMMUNICATIONS ANALYST, MACDM, CMP #### [facility] [address] [address] [address] Kasia Nath Sodium [Moles/Vol] 137 mmol/L Normal 136-145 [facility] [place] Comment on above: Performed By: #### B TELECOMMUNICATIONS ANALYST, CMADM, CMP #### [facility] [address] [place], [place] [address] Dr. Kasia Nath Urea nitrogen [Mass/Vol] 29.0 mg/dL Critically high 7.0-18.0 [facility] Comment on above: Performed By: #### B TELECOMMUNICATIONS ANALYST, CMADM, CMP #### [facility] [address] [place], [place] [address] Dr. Kasia Nath Urea nitrogen/Creatinine [Mass ratio] 24.4 mg/mg Normal [facility] Comment on above: Performed By: #### B TELECOMMUNICATIONS ANALYST, CMADM, CMP #### [facility] [address] [place], [place] [address] Dr. Kasia Nath TROPONIN, HIGH SENSITIVITYon 01-05-2023 HSTROP 18.4 pg/mL Normal 4.0-51.3 [facility] Comment on above: Result Comment: CUT- OFF POINTS HAVE BEEN ESTABLISHED BASED ON THE FOURTH UNIVERSAL DEFINITIONS OF MYOCARDIAL INFARCTION. THE UPPER REFERENCE LIMIT (URL) OF TROPONIN, DEFINED THE 99TH PERCENTILE OF cTnI DISTRIBUTION IN A REFERENCE POPULATION, HAS BEEN CONFIRMED THE DECISION THRESHOLD FOR UT DIAGNOSIS. Performed By: #### H STROPN ####[facility] [address] [place], [place] [address]CnDr. Kasia Nath XR CHEST 1 Von 01-05-2023 [...] BIN ROJAS Date: 2023-01-05 04:39 Normal [facility] BNPon 01-02-2023 Natriuretic peptide B (Bld) [Mass/Vol] 2583.0 pg/mL Critically high <=1,800.0 [facility] Comment on above: Performed By: #### B TELECOMMUNICATIONS ANALYST, CMP ####[facility] [address] [address]Dr. Kasia Nath CBC AUTO DIFFon 01-02-2023 BASO # 0.1 103/ul Normal 0.0-0.1 [facility] Comment on above: Performed By: #### P OCGLUC #### [facility] [address] [address] [address] Kasia Nath Basophils/100 WBC (Bld) 0.9 % Normal 0.2-2.0 [facility] Comment on above: Performed By: #### P OCGLUC #### [facility] [address] [place] [address] Dr. Kasia Nath EO # 0.2 103/ul Normal 0.0-0.7 [facility] Comment on above: Performed By: #### P OCGLUC #### [facility] [address] [address] [address] Kasia Nath Eosinophils/100 WBC (Bld) 2.3 % Normal 0.9-7.0 [facility] Comment on above: Performed By: #### P OCGLUC #### [facility] [address] [address] [address] Kasia Nath Erythrocyte distribution width (RBC) [Ratio] 13.8 % Normal 11.0-15.0 [facility] Comment on above: Performed By: #### P OCGLUC #### [facility] [address] [address] [address] Kasia Nath Hematocrit (Bld) [Volume fraction] 35.5 % Critically low 36.0-48.0 [facility] Comment on above: Performed By: #### P OCGLUC #### [facility] [address] [place] [address] Dr. Kasia Nath Hemoglobin (Bld) [Mass/Vol] 11.6 g/dL Critically low 12.0-16.0 [facility] Comment on above: Performed By: #### P OCGLUC #### [facility] [address] [address] [address] Kasia Nath IG # 0.02 10e3/ul Normal 0.00-0.03 [facility] Comment on above: Performed By: #### P OCGLUC #### [facility] [address] [address] [address] Kasia Nath IG % 0.3 % Normal 0.0-0.5 [facility] Comment on above: Performed By: #### P OCGLUC #### [facility] [address] [address] [address] Kasia Nath LYMPH # 2.0 103/ul Normal 1.2-3.8 [facility] Comment on above: Performed By: #### P OCGLUC #### [facility] [address] [place] [address] Dr. Kasia Nath Lymphocytes/100 WBC (Bld) 24.8 % Normal 20.5-60.0 [facility] Comment on above: Performed By: #### P OCGLUC #### [facility] [address] [address] [address] Kasia Nath MANUAL DIFF REQ NO Normal [facility] Comment on above: Performed By: #### P OCGLUC #### [facility] [address] [address] [address] Kasia Nath MCH (RBC) [Entitic mass] 28.7 pg Normal 26.7-34.0 [facility] Comment on above: Performed By: #### P OCGLUC #### [facility] [address] [address] [address] Kasia Nath MCHC (RBC) [Mass/Vol] 32.7 g/dL Normal 29.9-35.2 [facility] Comment on above: Performed By: #### P OCGLUC #### [facility] [address] [address] [address] Kasia Nath MCV (RBC) [Entitic vol] 87.9 fL Normal 81.0-99.0 [facility] Comment on above: Performed By: #### P OCGLUC #### [facility] [address] [address] [address] Kasia Nath MONO # 0.8 103/ul Normal 0.3-0.8 [facility] Comment on above: Performed By: #### P OCGLUC #### [facility] [address] [address] [address] Kasia Nath Monocytes/100 WBC (Bld) 9.6 % Normal 1.7-12.0 [facility] Comment on above: Performed By: #### P OCGLUC #### [facility] [address] [address] [address] Kasia Nath NEUT # 5.0 103/ul Normal 1.4-6.5 [facility] Comment on above: Performed By: #### P OCGLUC #### [facility] [address] [address] [address] Kasia Nath Neutrophils/100 WBC (Bld) 62.1 % Normal 43.0-75.0 [facility] Comment on above: Performed By: #### P OCGLUC #### [facility] [address] [address] [address] Kasia Nath Platelet mean volume (Bld) [Entitic vol] 10.7 fL Normal 9.5-13.5 [facility] Comment on above: Performed By: #### P OCGLUC #### [facility] [address] [address] [address] Kasia Nath PLT 204 103/ul Normal 150-450 [facility] Comment on above: Performed By: #### P OCGLUC #### [facility] [address] [address] [address] Kasia Nath RBC 4.04 106/ul Critically low 4.20-5.40 [facility] Comment on above: Performed By: #### P OCGLUC #### [facility] [address] [address] [address] Kasia Nath WBC 8.0 103/ul Normal 4.0-11.0 [facility] Comment on above: Performed By: #### P OCGLUC #### [facility] [address] [address] [address] Kasia Nath GLYCOHEMOGLOBIN A1Con 2022 ADA RECOMMENDATION SEE BELOW Normal [facility] Comment on above: Result Comment: ADA RECOMMENDED LIMIT 4.0 - 6.0 ADA THERAPEUTIC TARGET < 7.0 ACTION SUGGESTED > 7.0 Performed By: #### A 1C ####[facility] [address] [address]Dr. Kasia Nath Glucose [Mass/Vol] 298 mg/dL Normal [facility] Comment on above: Performed By: #### A 1C ####[facility] [address] [address]Dr. Kasia Nath HbA1c (Bld) [Mass fraction] 12.0 % Critically high 4.5-6.2 [facility] Comment on above: Performed By: #### A 1C ####[facility] [address] [place], [place] [address]Dr. Kasia Nath POINT OF CARE GLUCOSEon 12-14 Glucose [Mass/Vol] 227 mg/dL Critically high 74-106 [facility] Comment on above: Performed By: #### C BC #### [facility] [address] [address] [address] Kasia Nath Glucose [Mass/Vol] 214 mg/dL Critically high 74-106 [facility] Comment on above: Performed By: #### C BC #### [facility] [address] [address] [address] Kasia Nath PROF 14(COMP METB)on 023 Albumin [Mass/Vol] 2.6 g/dL Critically low 3.4-5.[address] [facility] Comment on above: Performed By: #### B TELECOMMUNICATIONS ANALYST, CMP ####[facility] [address] [address]Dr. Kasia Nath Albumin/Globulin [Mass ratio] 0.6 {ratio} Normal [facility] Comment on above: Performed By: #### B TELECOMMUNICATIONS ANALYST, CMP ####[facility] [address] [address]Dr. Kasia Nath ALP [Catalytic activity/Vol] 94 U/L Normal 46-116 [facility] Comment on above: Performed By: #### B TELECOMMUNICATIONS ANALYST, CMP ####[facility] [address] [place], [place] [address]Dr. Kasia Nath ALT [Catalytic activity/Vol] 16 U/L Normal 14-59 [facility] Comment on above: Performed By: #### B TELECOMMUNICATIONS ANALYST, CMP ####[facility] [address] [place], [place] [address]Dr. Kasia Nath Anion gap [Moles/Vol] 10.6 mmol/L Normal [facility] Comment on above: Performed By: #### B TELECOMMUNICATIONS ANALYST, CMP ####[facility] [address] [place], [place] [address]Dr. Kasia Nath AST [Catalytic activity/Vol] 15 U/L Normal 15-37 [facility] Comment on above: Performed By: #### B TELECOMMUNICATIONS ANALYST, CMP ####[facility] [address] [place], [place] [address]Dr. Kasia Nath Bilirubin [Mass/Vol] 0.8 mg/dL Normal 0.2-1.0 [facility] Comment on above: Performed By: #### B TELECOMMUNICATIONS ANALYST, CMP ####[facility] [address] [place], [place] [address]Dr. Kasia Nath Calcium [Mass/Vol] 8.5 mg/dL Normal 8.5-10.1 [facility] Comment on above: Performed By: #### B TELECOMMUNICATIONS ANALYST, CMP ####[facility] [address] [place], [place] [address]Dr. Kasia Portillo Chloride [Moles/Vol] 102 mmol/L Normal 98-107 [facility] Comment on above: Performed By: #### B TELECOMMUNICATIONS ANALYST, CMP ####[facility] [address] [place], [place] [address]Dr. Kasia Nath CO2 [Moles/Vol] 30.2 mmol/L Normal 21.0-32.0 [facility] Comment on above: Performed By: #### B TELECOMMUNICATIONS ANALYST, CMP ####[facility] [address] [place], [place] [id number]. Kasia Nath Creatinine [Mass/Vol] 0.94 mg/dL Normal 0.55-1.02 [facility] Comment on above: Performed By: #### B TELECOMMUNICATIONS ANALYST, CMP ####[facility] [address] [place], [place] [address]Dr. Kasia Nath EGFR-AF TAJIK >60 Normal >=60 [facility] Comment on above: Performed By: #### B TELECOMMUNICATIONS ANALYST, CMP ####[facility] [address] [place], [place] [address]Dr. Kasia Nath EGFR-NON AF TAJIK 58 mL/min/1.73m2 Critically low >=60 [facility] Comment on above: Performed By: #### B TELECOMMUNICATIONS ANALYST, CMP ####[facility] [address] [place], [place] [address]Dr. Kasia Nath Globulin (S) [Mass/Vol] 4.0 g/dL Normal [facility] Comment on above: Performed By: #### B TELECOMMUNICATIONS ANALYST, CMP ####[facility] [address] [place], [place] [address]Dr. Kasia Nath Glucose [Mass/Vol] 150 mg/dL Critically high 74-106 [facility] Comment on above: Performed By: #### B TELECOMMUNICATIONS ANALYST, CMP ####[facility] [address] [place], [place] [address]Dr. Kasia Nath Potassium [Moles/Vol] 3.8 mmol/L Normal 3.5-5.1 [facility] Comment on above: Performed By: #### B TELECOMMUNICATIONS ANALYST, CMP ####[facility] [address] [place], [place] [address]Dr. Kasia Nath Protein [Mass/Vol] 6.6 g/dL Normal 6.4-8.2 [facility] [place] Comment on above: Performed By: #### B TELECOMMUNICATIONS ANALYST, CMP ####[facility] [address] [place], [place] [address]Dr. Kasia Nath Sodium [Moles/Vol] 139 mmol/L Normal 136-145 [facility] Comment on above: Performed By: #### B TELECOMMUNICATIONS ANALYST, CMP ####[facility] [address] [place], [place] [address]QtDr. Kasia Nath Urea nitrogen [Mass/Vol] 24.0 mg/dL Critically high 7.0-18.0 [facility] Comment on above: Performed By: #### B TELECOMMUNICATIONS ANALYST, CMP ####[facility] [address] [place], [place] [address]PmDoreen Nath Urea nitrogen/Creatinine [Mass ratio] 25.5 mg/mg Normal [facility] Comment on above: Performed By: #### B TELECOMMUNICATIONS ANALYST, CMP ####[facility] [address] [place], [place] [address]DwDr. Kasia Nath BNPon 01-01-2023 Natriuretic peptide B (Bld) [Mass/Vol] 1419.0 pg/mL Normal <=1,800.0 [facility] Comment on above: Performed By: #### B TELECOMMUNICATIONS ANALYST #### [facility] [address] [place] [address] Dr. Kasia Nath CARDIAC EMERY 3-6on 3 CK [Catalytic activity/Vol] 80 U/L Normal 26-192 [facility] Comment on above: Performed By: #### P OCGLUC #### [facility] [address] [place] [address] Dr. Kasia Nath CK.MB [Mass/Vol] 1.85 ng/mL Normal <=3.60 [facility] Comment on above: Performed By: #### P OCGLUC #### [facility] [address] [place] [address] Dr. Kasia Nath HSTROP 13.2 pg/mL Normal 4.0-51.3 [facility] Comment on above: Result Comment: CUT- OFF POINTS HAVE BEEN ESTABLISHED BASED ON THE FOURTH UNIVERSAL DEFINITIONS OF MYOCARDIAL INFARCTION. THE UPPER REFERENCE LIMIT (URL) OF TROPONIN, DEFINED THE 99TH PERCENTILE OF cTnI DISTRIBUTION IN A REFERENCE POPULATION, HAS BEEN CONFIRMED THE DECISION THRESHOLD FOR UT DIAGNOSIS. Performed By: #### P OCGLUC #### [facility] [address] [place] [address] Dr. Kasia Nath CK [Catalytic activity/Vol] 73 U/L Normal 26-192 [facility] Comment on above: Performed By: #### P OCGLUC #### [facility] [address] [address] [address] Kasia Nath CK.MB [Mass/Vol] 1.71 ng/mL Normal <=3.60 [facility] Comment on above: Performed By: #### P OCGLUC #### [facility] [address] [place] [address] Dr. Kasia Nath HSTROP 13.6 pg/mL Normal 4.0-51.3 [facility] Comment on above: Result Comment: CUT- OFF POINTS HAVE BEEN ESTABLISHED BASED ON THE FOURTH UNIVERSAL DEFINITIONS OF MYOCARDIAL INFARCTION. THE UPPER REFERENCE LIMIT (URL) OF TROPONIN, DEFINED THE 99TH PERCENTILE OF cTnI DISTRIBUTION IN A REFERENCE POPULATION, HAS BEEN CONFIRMED THE DECISION THRESHOLD FOR UT DIAGNOSIS. Performed By: #### P OCGLUC #### [facility] [address] [place] [address] Dr. Kasia Nath CARDIAC EMERY ADMITon 023 CK [Catalytic activity/Vol] 71 U/L Normal 26-192 [facility] Comment on above: Performed By: #### C BC #### [facility] [address] [place] [address] Dr. Kasia Nath CK.MB [Mass/Vol] 1.69 ng/mL Normal <=3.60 [facility] Comment on above: Performed By: #### C BC #### [facility] [address] [place] [address] Dr. Kasia Nath HSTROP 13.0 pg/mL Normal 4.0-51.3 [facility] Comment on above: Result Comment: CUT- OFF POINTS HAVE BEEN ESTABLISHED BASED ON THE FOURTH UNIVERSAL DEFINITIONS OF MYOCARDIAL INFARCTION. THE UPPER REFERENCE LIMIT (URL) OF TROPONIN, DEFINED THE 99TH PERCENTILE OF cTnI DISTRIBUTION IN A REFERENCE POPULATION, HAS BEEN CONFIRMED THE DECISION THRESHOLD FOR UT DIAGNOSIS. Performed By: #### C BC #### [facility] [address] [place] [address] Dr. Kasia Nath GRETTA 75 ng/mL Normal 9-82 [facility] Comment on above: Performed By: #### C BC #### [facility] [address] [place] [address] Dr. Kasia Nath CBC AUTO DIFFon 01-01-2023 BASO # 0.1 103/ul Normal 0.0-0.1 [facility] Comment on above: Performed By: #### C BC #### [facility] [address] [place] [address] Dr. Kasia Nath Basophils/100 WBC (Bld) 1.1 % Normal 0.2-2.0 [facility] Comment on above: Performed By: #### C BC #### [facility] [address] [place] [address] Dr. Kasia Nath EO # 0.2 103/ul Normal 0.0-0.7 [facility] Comment on above: Performed By: #### C BC #### [facility] [address] [place] [address] Dr. Kasia Nath Eosinophils/100 WBC (Bld) 2.9 % Normal 0.9-7.0 [facility] Comment on above: Performed By: #### C BC #### [facility] [address] [place] [address] Dr. Kasia Nath Erythrocyte distribution width (RBC) [Ratio] 13.8 % Normal 11.0-15.0 [facility] Comment on above: Performed By: #### C BC #### [facility] [address] [place] [address] Dr. Kasia Nath Hematocrit (Bld) [Volume fraction] 36.2 % Normal 36.0-48.0 [facility] Comment on above: Performed By: #### C BC #### [facility] [address] [place] [address] Dr. Kasia Nath Hemoglobin (Bld) [Mass/Vol] 12.1 g/dL Normal 12.0-16.0 [facility] Comment on above: Performed By: #### C BC #### [facility] [address] [place] [address] Dr. Kasia Nath IG # 0.02 10e3/ul Normal 0.00-0.03 [facility] Comment on above: Performed By: #### C BC #### [facility] [address] [place] [address] Dr. Kasia Nath IG % 0.3 % Normal 0.0-0.5 [facility] Comment on above: Performed By: #### C BC #### [facility] [address] [place] [address] Dr. Kasia Nath LYMPH # 1.5 103/ul Normal 1.2-3.8 [facility] Comment on above: Performed By: #### C BC #### [facility] [address] [place] [address] Dr. Kasia Nath Lymphocytes/100 WBC (Bld) 19.9 % Critically low 20.5-60.0 [facility] Comment on above: Performed By: #### C BC #### [facility] [address] [place] [address] Dr. Kasia Nath MANUAL DIFF REQ NO Normal [facility] Comment on above: Performed By: #### C BC #### [facility] [address] [place] [address] Dr. Kasia Nath MCH (RBC) [Entitic mass] 29.7 pg Normal 26.7-34.0 [facility] Comment on above: Performed By: #### C BC #### [facility] [address] [place] [address] Dr. Kasia Nath MCHC (RBC) [Mass/Vol] 33.4 g/dL Normal 29.9-35.2 [facility] Comment on above: Performed By: #### C BC #### [facility] [address] [place] [address] Dr. Kasia Nath MCV (RBC) [Entitic vol] 88.9 fL Normal 81.0-99.0 [facility] Comment on above: Performed By: #### C BC #### [facility] [address] [place] [address] Dr. Kasia Nath MONO # 0.6 103/ul Normal 0.3-0.8 [facility] Comment on above: Performed By: #### C BC #### [facility] [address] [place] [address] Dr. Kasia Nath Monocytes/100 WBC (Bld) 8.0 % Normal 1.7-12.0 [facility] Comment on above: Performed By: #### C BC #### [facility] [address] [place] [address] Dr. Kasia Nath NEUT # 5.1 103/ul Normal 1.4-6.5 [facility] Comment on above: Performed By: #### C BC #### [facility] [address] [place] [address] Dr. Kasia Nath Neutrophils/100 WBC (Bld) 67.8 % Normal 43.0-75.0 [facility] Comment on above: Performed By: #### C BC #### [facility] [address] [place] [address] Dr. Kasia Nath Platelet mean volume (Bld) [Entitic vol] 10.4 fL Normal 9.5-13.5 [facility] Comment on above: Performed By: #### C BC #### [facility] [address] [place] [address] Dr. Kasia Nath PLT 200 103/ul Normal 150-450 [facility] Comment on above: Performed By: #### C BC #### [facility] [address] [place] [address] Dr. Kasia Nath RBC 4.07 106/ul Critically low 4.20-5.40 [facility] Comment on above: Performed By: #### C BC #### [facility] [address] [place] [address] Dr. Kasia Nath WBC 7.5 103/ul Normal 4.0-11.0 [facility] Comment on above: Performed By: #### C BC #### [facility] [address] [place] [address] CHEST WO CONon [...] two extremes (Agatston score 101-1000). https://pubs.rsna.org /doi/abs/10.1148/radi [email or web address] Electronically authenticated by: RENETTA WALLACE Date: 2023-01-01 14:55 Normal [facility] Covid-19 PCR (CVDTB)on 12-14 SARS-CoV-2 (COVID-19) RNA FERN+probe Ql (Unsp spec) Not detected Normal NOT DETECTED [facility] Comment on above: Result Comment: When diagnostic [...] for this test is supported by the [employer] of Health and Human Service's declaration that [...] longer be used). Performed By: #### C [facility] #### [facility] [address] [address] [address] Kasia Nath ECHO LIMITED STUDYon 023 ECHO LIMITED STUDY Patient: SAIMA CALL Exam Date: 01/01/2023 : 1945 Gender:F Ordering : LD GUERRERO . Admission #: [id number] Family : Order #: [id number] CLICK HERE TO VIEW EXAM ECHOCARDIOGRAM REPORT [...] Medrano M.D. on 01/01/2023 at 13:19 Normal [facility] GLYCOHEMOGLOBIN A1Con 2022 ADA RECOMMENDATION SEE BELOW Normal [facility] Comment on above: Result Comment: ADA RECOMMENDED LIMIT 4.0 - 6.0 ADA THERAPEUTIC TARGET < 7.0 ACTION SUGGESTED > 7.0 Performed By: #### P OCGLUC #### [facility] [address] [address] [address] Kasia Nath Glucose [Mass/Vol] 318 mg/dL Normal [facility] Comment on above: Performed By: #### P OCGLUC #### [facility] [address] [address] [address] Kasia Nath HbA1c (Bld) [Mass fraction] 12.7 % Critically high 4.5-6.2 [facility] Comment on above: Performed By: #### P OCGLUC #### [facility] [address] [address] [address] Kasia Nath POINT OF CARE GLUCOSEon 12-14 Glucose [Mass/Vol] 162 mg/dL Critically high [facility] Comment on above: Performed By: #### P OCGLUC ####[facility] [address] [address]Dr. Kasia Nath Glucose [Mass/Vol] 213 mg/dL Critically high -106 [facility] Comment on above: Performed By: #### P OCGLUC ####[facility] [address] [id number]. Kasia Nath Glucose [Mass/Vol] 248 mg/dL Critically high -106 [facility] Comment on above: Performed By: #### P OCGLUC #### [facility] [address] [address] [address] Kasia Nath PROF CHEM 8 (BAS METB)on 02- 20-2023 Anion gap [Moles/Vol] 11.8 mmol/L Normal [facility] Comment on above: Performed By: #### C BC #### [facility] [address] [place] [address] Dr. Kasia Nath Calcium [Mass/Vol] 8.4 mg/dL Critically low 8.5-10.[address] [facility] Comment on above: Performed By: #### C BC #### [facility] [address] [place] [address] Dr. Kasia Nath Chloride [Moles/Vol] 102 mmol/L Normal 98-107 [facility] Comment on above: Performed By: #### C BC #### [facility] [address] [place] [address] Dr. Kasia Nath CO2 [Moles/Vol] 28.4 mmol/L Normal 21.0-32.0 [facility] Comment on above: Performed By: #### C BC #### [facility] Laboratory [address] [place] [address] Dr. Kasia Nath Creatinine [Mass/Vol] 1.09 mg/dL Critically high 0.55-1.02 [facility] Comment on above: Performed By: #### C BC #### [facility] [address] [place] [address] Dr. Kasia Nath EGFR-AF TAJIK 59 mL/min/1.73m2 Critically low >=60 [facility] Comment on above: Performed By: #### C BC #### [facility] [address] [place] [address] Dr. Kasia Nath EGFR-NON AF TAJIK 49 mL/min/1.73m2 Critically low >=60 [facility] Comment on above: Performed By: #### C BC #### [facility] [address] [place] [address] Dr. Kasia Nath Glucose [Mass/Vol] 247 mg/dL Critically high 74-106 [facility] Comment on above: Performed By: #### C BC #### [facility] [address] [place] [address] Dr. Kasia Nath Potassium [Moles/Vol] 4.2 mmol/L Normal 3.5-5.1 [facility] Comment on above: Performed By: #### C BC #### [facility] [address] [address] [address] Kasia Nath Sodium [Moles/Vol] 138 mmol/L Normal 136-145 [facility] Comment on above: Performed By: #### C BC #### [facility] [address] [address] [address] Kasia Nath Urea nitrogen [Mass/Vol] 28.0 mg/dL Critically high 7.0-18.0 [facility] Comment on above: Performed By: #### C BC #### [facility] [address] [address] [address] Kasia Nath Urea nitrogen/Creatinine [Mass ratio] 25.7 mg/mg Normal [facility] Comment on above: Performed By: #### C BC #### [facility] [address] [address] [address] Kasia Nath XR CHEST 1 Von [...] by: Miranda ALVAREZ Date: 2023-01-01 05:38 Normal [facility] ECHOCARDIO M/2D COMPLETEon 1 11-15-2021 ECHOCARDIO M/2D COMPLETE Patient: JOE CALL Exam Date: 09/15/2022 : 1945 Gender:F Ordering : YAMEL [facility]CRACKEN [facility] Admission #: [id number] Family : DR SHANTEL STEVEN M.D. Order #: [id number] CLICK HERE TO VIEW EXAM ECHOCARDIOGRAM REPORT [...] M.D. on 09/15/2022 at 18:17 Normal [facility] GI PANEL (PCR)on 05-02-2022 Adenovirus F 40/41 Not detected Normal NOT DETECTED [facility] Comment on above: Performed By: #### P OCGLUC #### [facility] [address] [place] [address] Dr. Kasia Nath Astrovirus Not detected Normal NOT DETECTED [facility] Comment on above: Performed By: #### P OCGLUC #### [facility] [address] [place] [address] Dr. Kasia Nath C. Diff toxin A/B Not detected Normal NOT DETECTED [facility] Comment on above: Performed By: #### P OCGLUC #### [facility] [address] [place] [address] Dr. Kasia Nath Campylobacter Not detected Normal NOT DETECTED [facility] Comment on above: Performed By: #### P OCGLUC #### [facility] [address] [address] [address] Kasia Nath Cryptosporidium Not detected Normal NOT DETECTED [facility] Comment on above: Performed By: #### P OCGLUC #### [facility] [address] [address] [address] Kasia Nath Cyclos. Cayetanensis Not detected Normal NOT DETECTED [facility] Comment on above: Performed By: #### P OCGLUC #### [facility] [address] [place] [address] Dr. Kasia Nath E. Coli O157 Not Applicable Normal Not Applicable [facility] Comment on above: Performed By: #### P OCGLUC #### [facility] [address] [address] [address] Kasia Nath E. histolytica Not detected Normal NOT DETECTED [facility] Comment on above: Performed By: #### P OCGLUC #### [facility] [address] [place] [address] Dr. Kasia Nath EAEC Not detected Normal NOT DETECTED [facility] Comment on above: Performed By: #### P OCGLUC #### [facility] [address] [place] [address] Dr. Kasia Nath EIEC Not detected Normal NOT DETECTED [facility] Comment on above: Performed By: #### P OCGLUC #### [facility] [address] [place] [address] Dr. Kasia Nath EPEC Detected Abnormal NOT DETECTED [facility] Comment on above: Performed By: #### P OCGLUC #### [facility] [address] [place] [address] Dr. Kasia Nath ETEC Not detected Normal NOT DETECTED [facility] Comment on above: Performed By: #### P OCGLUC #### [facility] [address] [place] [address] Dr. Kasia Nath G. Lamblia Not detected Normal NOT DETECTED [facility] Comment on above: Performed By: #### P OCGLUC #### [facility] [address] [place] [address] Dr. Kasia Nath GIPANEL CONTROLS PASSED Normal [facility] Comment on above: Performed By: #### P OCGLUC #### [facility] [address] [address] [address] Kasia FRAIRE HEADER GI PANEL BACTERIA Normal [facility] Comment on above: Performed By: #### P OCGLUC #### [facility] [address] [address] [address] Kasia GE ECOLI GI PANEL DIARRHEAGENIC E.COLI / SHIGELLA Normal [facility] Comment on above: Performed By: #### P OCGLUC #### [facility] [address] [address] [address] Kasia GE INFO SEE BELOW [facility] Comment on above: Result Comment: EAEC - Enteroaggregative E. Coli EPEC- Enteropathogenic E. Coli ETEC- Enterotoxigenic E. Coli lt/st STEC- Shigella-like toxin-producing E. Coli stx1/stx2 EIEC- Shigella/Enteroinvasive E. Coli Performed By: #### P OCGLUC #### [facility] [address] [address] [address] Kasia GE PARASITES GI PANEL PARASITES Normal [facility] Comment on above: Performed By: #### P OCGLUC #### [facility] [address] [address] [address] Kasia GE VIRUS GI PANEL VIRUSES Normal [facility] Comment on above: Performed By: #### P OCGLUC #### [facility] [address] [address] [address] Kasia Nath Norovirus GI/GII Not detected Normal NOT DETECTED [facility] Comment on above: Performed By: #### P OCGLUC #### [facility] [address] [address] [address] Kasia Garland. Shigelloides Not detected Normal NOT DETECTED [facility] Comment on above: Performed By: #### P OCGLUC #### [facility] [address] [address] [address] Kasia Nath Rotavirus A Not detected Normal NOT DETECTED [facility] Comment on above: Performed By: #### P OCGLUC #### [facility] [address] [address] [address] Kasia Nath Salmonella Not detected Normal NOT DETECTED [facility] Comment on above: Performed By: #### P OCGLUC #### [facility] [address] [address] [address] Kasia Nath Sapovirus Not detected Normal NOT DETECTED [facility] Comment on above: Performed By: #### P OCGLUC #### [facility] [address] [address] [address] Kasia Nath STEC Not detected Normal NOT DETECTED [facility] Comment on above: Performed By: #### P OCGLUC #### [facility] [address] [place] [address] Dr. Kasia Nath Vibrio Not detected Normal NOT DETECTED [facility] Comment on above: Performed By: #### P OCGLUC #### [facility] [address] [address] [address] Kasia Nath Vibrio Cholera Not detected Normal NOT DETECTED [facility] Comment on above: Performed By: #### P OCGLUC #### [facility] [address] [address] [address] Kasia Nath Y. Enterocolitica Not detected Normal NOT DETECTED [facility] Comment on above: Performed By: #### P OCGLUC #### [facility] [address] [place] [address] Dr. Kasia Nath OCC BLD IMMUNO SCREENon 04-13 OCCULT BLOOD Negative Normal NEGATIVE [facility] Comment on above: Performed By: #### C BC #### [facility] [address] [place] [address] Dr. Kasia Nath XR knee BI 4Von 08-25-2021 XR knee BI 4V [facility] [employer] Other XR knee BI 4V [facility] [employer] Other XR knee BI 4V [address] [place] [address] [employer] Other XR knee BI 4V [address] [employer] Other XR knee BI 4V XRay Report [facility] [employer] Other XR knee BI 4V Signed [employer] Other XR knee BI 4V Patient: Joe Call MR#: [id number] [place] [employer] Other XR knee BI 4V 0 [employer] Other XR knee BI 4V : 1945 Acct:[id number] [employer] Other XR knee BI 4V Age/Sex: 76 / F ADM Date: 08/25/21 [employer] Other XR knee BI 4V Loc: [facility] Room: Type : [facility] [employer] Other XR knee BI 4V Attending Dr: Akbar Cui II, MD [employer] Other XR knee BI 4V Ordering Provider: Akbar Cui MD [employer] Other XR knee BI 4V Date of Service: 08/25/21 [employer] Other XR knee BI 4V XR/XR knee BI 4V: Pain in right knee;Pain in left knee [employer] Other XR knee BI 4V Copies to: Akbar Cui MD [employer] Other XR knee BI 4V XR knee BI 4V 08/25/2021 1:32 PM [employer] Other XR knee BI 4V SIGNS AND SYMPTOMS: Bilateral knee pain with decreased range of motion, weakness [employer] Other XR knee BI 4V PROTOCOL: Frontal, lateral, and sunrise views of the bilateral knees [employer] Other XR knee BI 4V COMPARISON: None [employer] Other XR knee BI 4V FINDINGS: [employer] Other XR knee BI 4V There is mild narrowing of the medial weightbearing joint spaces. There is mild patellofemoral [employer] Other XR knee BI 4V joint space loss. There is spurring of the poles of the patella bilaterally. There is mild lateral [employer] Other XR knee BI 4V patellar subluxation bilaterally. There is no evidence of acute displaced fracture. Well-corticated [employer] Other XR knee BI 4V ossific structures o r separate from the right medial weightbearing joint space. This may represent a [employer] Other XR knee BI 4V calcified loose bodies. [employer] Other XR knee BI 4V XR/XR knee BI 4V [employer] Other XR knee BI 4V IMPRESSION: [employer] Other XR knee BI 4V Degenerative changes are noted are noted bilaterally, as above. [employer] Other XR knee BI 4V Well-corticated ossific structures or separate from the right medial weightbearing joint space. This [employer] Other XR knee BI 4V may represent a calcified loose bodies. [employer] Other XR knee BI 4V No acute displaced fracture. [employer] Other XR knee BI 4V There is mild latera l subluxation of the patella within the patellofemoral joint space bilaterally. [employer] Other XR knee BI 4V Impression dictated by: Emery Lobo M.D.08/25/2021 2:51 PM [employer] Other XR knee BI 4V Dictation Location: [address] [address] [employer] Other XR knee BI 4V Transcribed By: RAFAEL 08/25/21 1451 [employer] Other XR knee BI 4V Dictated By: Emery Lobo II, MD 08/25/21 1447 [employer] Other XR knee BI 4V Signed By: [employer] Other XR knee BI 4V 08/25/21 1451 [facility] [facility] [employer] Other XR pelvis 1-2Von 08-25-2021 XR pelvis 1-2V XR/XR pelvis 1-2V: Pain in right knee;Pain in left knee [employer] Other XR pelvis 1-2V XR pelvis 1-2V 08/25/2021 1:32 PM [employer] Other XR pelvis 1-2V SIGNS AND SYMPTOMS: Bilateral generalized knee pain, limited range of motion with weakness [employer] Other XR pelvis 1-2V PROTOCOL: Frontal radiograph of the pelvis [employer] Other XR pelvis 1-2V There is mild narrowing of the weightbearing joint spaces. Mild degenerative changes are noted in [employer] Other XR pelvis 1-2V the symphysis pubis. There is no evidence of fracture or dislocation. Vascular calcifications are [employer] Other XR pelvis 1-2V present in the pelvis. [employer] Other XR pelvis 1-2V XR/XR pelvis 1-2V [employer] Other XR pelvis 1-2V No fracture or dislocation. [employer] Other XR pelvis 1-2V Mild degenerative changes are noted in the joint space of the hips. [employer] Other XR pelvis 1-2V Impression dictated by: Emery Lobo M.D.08/25/2021 2:54 PM [employer] Other XR pelvis 1-2V Transcribed By: PWS 08/25/21 [facility] [employer] Other XR pelvis 1-2V Dictated By: Emery Lobo II, MD 08/25/21 [facility] [employer] Other XR pelvis 1-2V 08/25/[address] [place] [address] [employer] Other Vital Signs Date Time Vital Sign Value Performing Clinician Facility 04-03-2024 11:29-0400 Body height 165.1 cm MD Shantel Steven Work Phone: [facility] 04-03-2024 11:29-0400 Body mass index (BMI) [Ratio] 43.7 kg/m2 MD Shantel Steven Work Phone: [facility] 04-03-2024 11:29-0400 Body weight 119.29 kg MD Shantel Steven Work Phone: [facility] 04-03-2024 11:29-0400 Diastolic blood pressure 71 mm[Hg] MD Shantel Steven Work Phone: [facility] 04-03-2024 11:29-0400 Heart rate 56 /min MD Shantel Steven Work Phone: [facility] 04-03-2024 11:29-0400 Systolic blood pressure 116 mm[Hg] MD Shantel Steven Work Phone: [facility] 03-25-2024 15:15-0400 Body height 165.1 cm MD Shantel Steven Work Phone: [facility] 03-25-2024 15:15-0400 Body mass index (BMI) [Ratio] 43.9 kg/m2 MD Shantel Steven Work Phone: [facility] 03-25-2024 15:15-0400 Body weight 119.74 kg MD Shantel Steven Work Phone: [facility] 03-25-2024 15:15-0400 Diastolic blood pressure 87 mm[Hg] MD Shantel Steven Work Phone: [facility] 03-25-2024 15:15-0400 Heart rate 66 /min MD Shantel Steven Work Phone: [facility] 03-25-2024 15:15-0400 Systolic blood pressure 125 mm[Hg] MD Shantel Steven Work Phone: [facility] 02-15-2024 14:18-0400 Body height 165.1 cm [facility] 02-15-2024 14:18-0400 Body mass index (BMI) [Ratio] 38.6 kg/m2 [facility] 02-15-2024 14:18-0400 Body weight 105.23 kg [facility] 02-15-2024 14:18-0400 Diastolic blood pressure 66 mm[Hg] [facility] 02-15-2024 14:18-0400 Heart rate 55 /min [facility] 02-15-2024 14:18-0400 Systolic blood pressure 114 mm[Hg] [facility] 01-18-2024 10:23-0500 Body height 165.1 cm [facility] 01-18-2024 10:23-0500 Body mass index (BMI) [Ratio] 43.2 kg/m2 [facility] 01-18-2024 10:23-0500 Body weight 117.93 kg [facility] 01-18-2024 10:23-0500 Diastolic blood pressure 70 mm[Hg] [facility] 01-18-2024 10:23-0500 Heart rate 98 /min [facility] 01-18-2024 10:23-0500 SaO2% (BldA) [Mass fraction] 65 % [facility] 01-18-2024 10:23-0500 Systolic blood pressure 110 mm[Hg] [facility] 10-23-2023 16:00-0500 Body height 165.1 cm [employer] Other [employer] Other 10-23-2023 16:00-0500 Body mass index (BMI) [Ratio] 44.63 kg/m2 Aziz Bakhous Other [employer] Other 10-23-2023 16:00-0500 Body temperature 96.8 [degF] Azghassan Kochs Other [employer] Other 10-23-2023 16:00-0500 Body weight 121.66 kg Azghassan Kochs Other [employer] Other 10-23-2023 16:00-0500 Diastolic blood pressure 60 mm[Hg] Jaleesa Kochs Other [employer] Other 10-23-2023 16:00-0500 Respiratory rate 18 /min Jaleesa Kochs Other [employer] Other 10-23-2023 16:00-0500 SaO2% (BldA) [Mass fraction] 99 % Jaleesa Kochs Other [employer] Other 10-23-2023 16:00-0500 Systolic blood pressure 124 mm[Hg] Jaleesa Kochs Other [employer] Other 10-18-2023 13:45-0500 Body height 165.1 cm Shantel Steven Other [employer] Other 10-18-2023 13:45-0500 Body mass index (BMI) [Ratio] 44.86 kg/m2 Shantel Steven Other [employer] Other 10-18-2023 13:45-0500 Body temperature 97.3 [degF] Shantel Steven Other [employer] Other 10-18-2023 13:45-0500 Body weight 122.29 kg Shantel Steven Other [employer] Other 10-18-2023 13:45-0500 Diastolic blood pressure 84 mm[Hg] Shantel Steven Other [employer] Other 10-18-2023 13:45-0500 SaO2% (BldA) [Mass fraction] 97 % Shantel Steven Other [employer] Other 10-18-2023 13:45-0500 Systolic blood pressure 132 mm[Hg] Shantel Steven Other [employer] Other 09-04-2023 14:00-0400 Body height 165.1 cm Shantel Steven Other [employer] Other 09-04-2023 14:00-0400 Body mass index (BMI) [Ratio] 43.06 kg/m2 Shantel Steven Other [employer] Other 09-04-2023 14:00-0400 Body weight 117.39 kg Shantel Steven Other [employer] Other 09-04-2023 14:00-0400 Diastolic blood pressure 69 mm[Hg] Shantel Steven Other [employer] Other 09-04-2023 14:00-0400 Systolic blood pressure 127 mm[Hg] Shantel Steven Other [employer] Other 07-17-2023 10:00-0400 Body height 165.1 cm Shantel Steven Other [employer] Other 07-17-2023 10:00-0400 Body mass index (BMI) [Ratio] 43.03 kg/m2 Shantel Steven Other [employer] Other 07-17-2023 10:00-0400 Body weight 117.3 kg Shantel Steven Other [employer] Other 07-17-2023 10:00-0400 Diastolic blood pressure 76 mm[Hg] Shantel Steven Other [employer] Other 07-17-2023 10:00-0400 Systolic blood pressure 164 mm[Hg] Shantel Steven Other [employer] Other 04-30-2023 14:30-0400 Body height 165.1 cm Shantel Steven Other [employer] Other 04-30-2023 14:30-0400 Body mass index (BMI) [Ratio] 43.43 kg/m2 Shantel Steven Other [employer] Other 04-30-2023 14:30-0400 Body weight 118.39 kg Shantel Steven Other [employer] Other 04-30-2023 14:30-0400 Diastolic blood pressure 75 mm[Hg] Shantel Steven Other [employer] Other 04-30-2023 14:30-0400 Systolic blood pressure 135 mm[Hg] Shantel Steven Other [employer] Other 03-09-2023 12:15-0400 Body height 165.1 cm Shantel Steven Other [employer] Other 03-09-2023 12:15-0400 Body mass index (BMI) [Ratio] 43.59 kg/m2 Shantel Steven Other [employer] Other 03-09-2023 12:15-0400 Body weight 118.84 kg Shantel Steven Other [employer] Other 03-09-2023 12:15-0400 Diastolic blood pressure 82 mm[Hg] Shantel Steven Other [employer] Other 03-09-2023 12:15-0400 SaO2% (BldA) [Mass fraction] 97 % Shantel Steven Other [employer] Other 03-09-2023 12:15-0400 Systolic blood pressure 130 mm[Hg] Shantel Steven Other [employer] Other 02-20-2023 10:00-0400 Body height 165.1 cm Shantel Steven Other [employer] Other 02-20-2023 10:00-0400 Body mass index (BMI) [Ratio] 41.93 kg/m2 Shantel Steven Other [employer] Other 02-20-2023 10:00-0400 Body weight 114.31 kg Shantel Steven Other [facility] Other 02-20-2023 10:00-0400 Diastolic blood pressure 84 mm[Hg] Shantel Steven Other [facility] Other 02-20-2023 10:00-0400 Systolic blood pressure 132 mm[Hg] Shantel Steven Other [employer] Other 08-04-2022 13:33-0400 Blood Pressure Location Bin SORENSON [facility] 08-04-2022 13:33-0400 Diastolic blood pressure 88 mm[Hg] Bin SORENSON [facility] [place] 08-04-2022 13:33-0400 Heart rate 76 /min Bin SORENSON [facility] [place] 08-04-2022 13:33-0400 Respiratory rate 16 /min Bin SORENSON [facility] [place] 08-04-2022 13:33-0400 Systolic blood pressure 130 mm[Hg] Bin SORENSON [facility] [place] 08-25-2021 14:30-0400 Body height 165.1 cm Akbar GardnerMMIT Other [employer] Other 08-25-2021 14:30-0400 Body mass index (BMI) [Ratio] 43.26 kg/m2 Akbar GardnerMMIT Other [employer] Other 08-25-2021 14:30-0400 Body weight 117.94 kg Akbar GardnerMMIT Other [employer] Other Encounters Encounter Date Encounter Type Care Provider Facility Start: 04-03-2024 End: 04-03-2024 ambulatory MD Shantel Steven Work Phone: [facility] Work Phone: Start: 04-03-2024 End: 04-03-2024 Patient encounter procedure MD Shantel Steven Work Phone: [facility] Physician [facility] Work Phone: Start: 04-01-2024 Non-patient / Non-visit MD Alessia Steven Work Phone: [facility] Physician [facility] Work Phone: Start: 03-31-2024 Non-patient / Non-visit MD Alessia Steven Work Phone: [facility] Physician [facility] Work Phone: Start: 03-28-2024 Non-patient / Non-visit MD Alessia Steven Work Phone: [facility] Work Phone: Start: 03-27-2024 Non-patient / Non-visit MD Alessia Steven Work Phone: [facility] Physician [facility] Work Phone: Start: 03-26-2024 Non-patient / Non-visit MD Alessia Steven Work Phone: [facility] Work Phone: Start: 03-25-2024 End: 03-25-2024 Patient encounter procedure MD Shantel Steven Work Phone: [facility] Physician [facility] Work Phone: Start: 03-13-2024 End: 03-13-2024 ambulatory MD Shantel Steven Work Phone: [facility] Work Phone: Start: 03-13-2024 End: 03-13-2024 Patient encounter procedure MD Shatnel Steven Work Phone: [facility] [address] Work Phone: Start: 03-07-2024 End: 03-07-2024 ambulatory [facility] Start: 02-19-2024 ambulatory Facility:[facility] Start: 02-15-2024 End: 02-15-2024 ambulatory [facility] Work Phone: Start: 02-15-2024 End: 02-15-2024 Patient encounter procedure [facility] Physician [facility] Work Phone: Start: 01-29-2024 Non-patient / Non-visit [facility] Physician [facility] Work Phone: Start: 01-24-2024 Non-patient / Non-visit [facility] Physician [facility] Work Phone: Start: 01-22-2024 Non-patient / Non-visit [facility] Physician [facility] Work Phone: Start: 01-18-2024 End: 01-18-2024 Patient encounter procedure [facility] Physician [facility] Work Phone: Start: 01-15-2024 Non-patient / Non-visit [facility] Physician [facility] Work Phone: Start: 01-04-2024 Non-patient / Non-visit [facility] Physician [facility] Work Phone: Start: 12-18-2023 End: 12-18-2023 ambulatory Shantel Steven Other [employer] Other Start: 12-18-2023 Telephone encounter Shantel Steven [facility] Start: 11-19-2023 End: 11-19-2023 ambulatory Shantel Steven Other [employer] Other Start: 11-19-2023 Telephone encounter Shantel Steven [facility] Start: 10-23-2023 End: 10-23-2023 ambulatory Aziz Bakhous Other [employer] Other Start: 10-23-2023 Office outpatient ne w 30 minutes Aziz Bakhous [facility] Start: 10-22-2023 End: 10-22-2023 ambulatory Shantel Steven Other [employer] Other Start: 10-22-2023 Telephone encounter Shantel Steven [facility] Start: 10-18-2023 End: 10-18-2023 ambulatory Shantel Steven Other [employer] Other Start: 10-18-2023 Office outpatient vi sit 15 minutes Shantel Steven [facility] Start: 09-07-2023 End: 09-07-2023 ambulatory Shantel Steven Other [employer] Other Start: 09-07-2023 Telephone encounter Shantel Steven [facility] Start: 09-04-2023 End: 09-04-2023 ambulatory Shantel Tenisha Other [employer] Other Start: 09-04-2023 Office outpatient vi sit 25 minutes Shantel Steven [facility] Start: 08-23-2023 End: 08-23-2023 ambulatory Shantel Steven Other [employer] Other Start: 08-23-2023 Telephone encounter Shantel Steven [facility] Start: 08-17-2023 End: 08-17-2023 ambulatory [facility] Start: 07-23-2023 Telephone encounter Shantel Steven [facility] Start: 07-23-2023 End: 07-23-2023 ambulatory [facility] Other Start: 07-17-2023 End: 07-17-2023 ambulatory Shantel Tenisha Other [facility] Other Start: 07-17-2023 Office outpatient vi sit 25 minutes Shantel Steven [facility] Start: 05-30-2023 End: 05-30-2023 ambulatory Shantel Steven Other [facility] Other Start: 05-30-2023 Telephone encounter Shantel Steven [facility] Start: 05-22-2023 End: 05-22-2023 ambulatory Shantel Tenisha Other [facility] Other Start: 05-22-2023 Telephone encounter Shantel Steven [facility] Start: 05-16-2023 End: 05-16-2023 ambulatory Shantel Steven Other [facility] Other Start: 05-16-2023 Telephone encounter Shantel Steven [facility] Start: 05-07-2023 End: 05-07-2023 ambulatory Shantel Tenisha Other [facility] Other Start: 05-07-2023 Telephone encounter Shantel Steven [facility] Start: 04-30-2023 End: 04-30-2023 ambulatory Shantel Steven Other [facility] Other Start: 04-30-2023 Office outpatient vi sit 25 minutes Shantel Steven [facility] Start: 04-25-2023 End: 04-25-2023 ambulatory RICA MEDRANO [facility] Other Start: 04-25-2023 Telephone encounter Shantel Tenisha [facility] Start: 04-12-2023 End: 04-12-2023 ambulatory Shantel Steven Other [facility] Other Start: 04-12-2023 Telephone encounter Shantel Tenisha [facility] Start: 03-09-2023 End: 03-09-2023 ambulatory Shantel Steven Other [facility] Other Start: 03-09-2023 Office outpatient vi sit 15 minutes Shantel Steven [facility] Start: 03-07-2023 End: 03-07-2023 ambulatory Shantel Steven Other [facility] Other Start: 03-07-2023 Telephone encounter Shantel Steven [facility] Start: 03-06-2023 End: 03-06-[address] HSANTEL STEVEN Facility:[facility]1 Start: 03-05-2023 End: 03-05-2023 ambulatory Shantel Steven Other [facility] Other Start: 03-05-2023 Telephone encounter Shantel Steven [facility] Start: 02-26-2023 End: 02-26-2023 ambulatory Shantel Steven Other [facility] Other Start: 02-26-2023 Telephone encounter Shantel Steven [facility] Start: 02-24-2023 End: 02-24-[address] SHANTEL STEVEN Facility:[facility] Start: 02-23-2023 End: 02-23-2023 ambulatory Shantel Steven Other [facility] Other Start: 02-23-2023 Telephone encounter Shantel Steven [facility] Start: 02-20-2023 End: 02-20-2023 ambulatory Shantel Steven Other [facility] Other Start: 02-20-2023 Transitional care luz [facility] 14 day discharge Shantel Steven [facility] Start: 02-16-2023 End: 02-16-2023 ambulatory Shantel Steven Other [facility] Other Start: 02-16-2023 Telephone encounter Shantel Steven [facility] Start: 02-13-2023 End: 02-14-[address] SHANTEL STEVEN Facility:[facility] Start: 02-02-2023 End: 02-02-2023 ambulatory Shantel Steven Other [facility] Other Start: 02-02-2023 Telephone encounter Shantel Steven [facility] Start: 01-16-2023 End: 01-17-[address] DOCTOR CARMONA Facility:[facility] Start: 01-05-2023 End: 01-05-2023 ambulatory BIN ROJAS Facility:[facility] Start: 01-01-2023 End: 01-02-2023 ambulatory ANALISA WHYTE Facility:[facility] Start: 11-29-2022 End: 11-29-2022 ambulatory Shantel Steven Other [facility] Other Start: 11-29-2022 Telephone encounter Shantel Steven [facility] Start: 11-27-2022 End: 11-27-2022 ambulatory Shantel Steven Other [facility] Other Start: 11-27-2022 Telephone encounter Shantel Steven [facility] Start: 11-24-2022 End: 11-24-2022 ambulatory Shantel Steven Other [facility] Other Start: 11-24-2022 Telephone encounter Shantel Steven [facility] Start: 11-06-2022 ambulatory YAMEL MCCRACKEN Facility :[facility] Start: 09-15-2022 End: 09-16-[address] SHANTEL STEVEN Facility:[facility] Start: 08-04-2022 End: 08-04-2022 Patient encounter procedure Bin R NILL General Surgery Nill/Said [place] Start: 05-02-2022 End: 05-02-[address] SHANTEL STEVEN Facility:[facility] Start: 08-25-2021 Office outpatient ne w 45 minutes Akbar Cui II [facility] Start: 08-09-2017 End: 08-12-2017 Ambulatory PROVIDER UNKNOWN Facility:[facility] Procedures Date Procedure Procedure Detail Performing Clinician [...] Decompression laminectomy Mi chael NILL Esophagogastroduodenoscopy M ichael NILL Excision of iliac lymph nodes Bin NILL Facetectomy of vertebra [place] ael NILL Foraminotomy Bin NILL History of operative procedure on shoulder Bin NILL History of sigmoid colectomy Bin NILL Total abdominal hyst erectomy with bilateral salpingo-oophorectomy Bin YAS Plan of Treatment Date Care Activity Detail Author Start: 02-15-2024 Patient referral [facility] Work Phone: Comprehensive metabo lic 2000 panel - Serum or Plasma [facility] Microalbumin [Mass/v olume] in Urine [facility] Patient referral [facility] Work Phone: [facility] Immunizations Immunization Date Immunization Notes Care Provider Fa cility 01-18-2024 Pneumococcal Conjugate Vaccine, 20 valent [facility] 09-04-2023 influenza, high dose seasonal, preservative-free Shantel Steven Other [facility] [employer] Other 09-04-2023 influenza virus vaccine, unspecified formulation [facility] 02-04-2021 COVID-19 mRNA, Comirnaty (Pfizer) [facility] 01-21-2021 COVID-19 mRNA, Comirnaty (Pfizer) [facility] 10-09-2018 influenza virus vaccine, split virus (incl. purified surface antigen) Shantel Steven Other [facility] [employer] Other 10-09-2018 influenza virus vaccine, unspecified formulation [facility] NEGATED: Highlighted row has not occurred!08-21-2019 influenza virus vaccine, split virus (incl. purified surface antigen) Shantel Steven Other [facility] [employer] Other Payers Date Payer Category Payer Self-pay [id number] 1958 Medicare [id number] 1958 Self-pay [id number] 1945 Unknown [id number] 2.16.84 [id number] 1945 Unknown [id number] 2.16.84 [id number] 1945 Unknown [id number] 2.16.84 [id number] 1945 Unknown [id number] 2.16.84 [id number] 1945 Unknown [id number] 2.16.84 [id number] 1945 Unknown [id number] 2.16.84 [id number] 1945 Unknown [id number] 2.16.84 [id number] 1945 Unknown [id number] 2.16.84 [id number] 1945 Unknown [id number] 2.16.84 [id number] Unknown Unknown [id number] 2.16.8 [id number] Social History Date Type Detail Facility Sex Assigned At [facility] [employer] Other Start: 08-04-2022 End: 01-18-2024 Tobacco smoking status Ex-smoker (finding) [facility] [place] Tobacco smoking status Never Gener [facility] [place] Start: 1945 Sex Assigned At Female F [facility] Medical Equipment Procedure Code Equipment Code Equipment Origin al Text Equipment Identifier Dates Blood Sugar Diagnostic (True Metrix Glucose Test Strip) strip Start: 03-31-2024 Pen Needle, Diab etic (Comfort Ez Pen Salol) 33 gauge x 5/32 needle Start: 03-25-2024 Blood Sugar Diagnostic (True Metrix Glucose Test Strip) strip Start: 03-31-2024 End: 03-31-2024 Functional Status Date Assessment Result Facility 08-04-2022 Functional Status N/A [facility] 08-25-2021 to 03-07-2024 Note Date & Type Note Facility 03-07-2024 Note [place] [facility] - [facility] Subjective Joe Call is a 78 [...] prior cardiac catheterizations. She has history of UT in the past and underwent balloon angioplasty (many years ago, prior to the stent era). 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 In December 2022 she was admitted to the [facility] with decompensated diastolic heart failure, she was treated with diuretic therapy. In February 2023 she was admitted to [facility] with dehydration secondary to acute gastroenteritis. She also had acute kidney injury in that setting. She has history of breast cancer more than 25 years ago s/p mastectomy, chemo and radiation therapy. She has lymphedema in the left arm. In the past she saw a hand roller engraver for bleeding behind the eye . she [...] TIMES DAILY NEEDED (more content not included)... [facility] 02-15-2024 Hospital Discharge instructions Ambulatory OrdersReferral to Urology Time Frame: 02/15/24, Location: None Selected [facility] Work Phone: 11-19-2023 Evaluation note Encounter Date Diagnosis Assessment Notes Nov, Lumbar degenerative disc disease (ICD-10 - M51.36) [facility] Other [id number] Evaluation note* Encounter Date Diagnosis Assessment Notes [...] will check vitamin B12 level next visit [facility] Other 12-11-2023 Evaluation note* Encounter Date Diagnosis Assessment Notes Treatment Notes Treatment Clinical Notes Oct, Lumbar degenerative disc disease (ICD-10 - M51.36) [facility] Other 12-07-2023 Evaluation note* Encounter Date Diagnosis Assessment Notes Treatment Notes Treatment Clinical Notes Oct, Bronchitis (ICD-10 - J40) Finish meds. No acute need for antibiotic at this time Oct, Diabetes mellitus with chronic kidney disease (ICD-10 - E11.22) Due for labs, followup w Dr. Mcconnell Oct, Lumbar degenerative disc disease (ICD-10 - M51.36) Pt will contact neurosurgery. [facility] Other 10-27-2023 Evaluation note* Encounter Date Diagnosis Assessment Notes Treatment Notes Treatment Clinical Notes Aug, Chronic kidney disease, stage 4 (severe) (ICD-10 - N18.4) [facility] Other 10-24-2023 Evaluation note* Encounter Date Diagnosis [...] (ICD-10 - M51.36) Pt requests referral to [place] [facility]. Reviewed OARRS report. Aug, Stress incontinence of urine (ICD-10 - N39.3) R/o infection. Discussed could be related to her diabetes med as well. [facility] Other 10-12-2023 Evaluation note* Encounter Date Diagnosis Assessment Notes Treatment Notes Treatment Clinical Notes Aug, Lumbar degenerative disc disease (ICD-10 - M51.36) [facility] Other 10-06-2023 NotePatient here for 1 mo follow up CAD, chronic diastolic heart failure, and PAF. Follow up labs have not been completed yet. 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 All other systems reviewed and are negative.[facility] 08-17-2023 NoteCardiology Clinic Note Subjective Joe [...] In February 2023 she was admitted to [facility] with dehydration secondary to acute gastroenteritis. She also had acute kidney injury in that setting. She has history of breast cancer more than 25 years ago s/p mastectomy, chemo and radiation therapy. She has lymphedema in the left arm. She has been doing well. No chest pain. No dyspnea. No palpitations. She reports that she is seeing a hand roller engraver for bleeding behind the eye . She has had a lot of balance issues, uses a walker to ambulate and has had about 10 falls in the past year. Update: 07/23/2023 She was admitted to [facility] 07/08-07/10/2023 for decompensated HFpEF She was [...] with questions Was prescribed Farxiga by her workers' compensation commissioner but did not start after reading about [...] DAYS, Disp: , Rfl (more content not included)...[facility]* Encounter Date Diagnosis Assessment Notes Treatment Notes Treatment Clinical Notes Jul, Lumbar degenerative disc disease (ICD-10 - M51.36) [facility] Other 09-11-2023 NoteCardiology Clinic Note Subjective Joe [...] In February 2023 she was admitted to [facility] with dehydration secondary to acute gastroenteritis. She also had acute kidney injury in that setting. She has history of breast cancer more than 25 years ago s/p mastectomy, chemo and radiation therapy. She has lymphedema in the left arm. She has been doing well. No chest pain. No dyspnea. No palpitations. She reports that she is seeing a hand roller engraver for bleeding behind the eye . She has had a lot of balance issues, uses a walker to ambulate and has had about 10 falls in the past year. Update: 07/23/2023 She was admitted to [facility] 07/08-07/10/2023 for decompensated HFpEF She was [...] time each day., Disp: (more content not included)...[facility]09-11-2023 NotePatient here for follow up [facility] for CHF. She was seen as [...] weakness. All other systems reviewed and are negative.[facility] 07-17-2023 Evaluation note* Encounter Date Diagnosis [...] refill. Oarrs reviewed. No med changes needed. [facility] Other 07-05-2023 Evaluation note* Encounter Date Diagnosis Assessment Notes Treatment Notes Treatment Clinical Notes May, C. difficile colitis (ICD-10 - A04.72) [facility] Other 06-19-2023 Evaluation note* Encounter Date Diagnosis Assessment Notes Treatment Notes Treatment Clinical Notes Apr, Skin candidiasis (ICD-10 - B37.2) Discussed this is related to her hyperglycemia. Will treat w nystatin, but needs improvement in diet and glucose readings. Apr, Type 2 diabetes mellitus with hyperglycemia, unspecified whether jail insulin use (ICD-10 - E11.65) Pt agrees to see Dr Mcconnell again. Recently sent to ER for glucose of 608. Apr, Tremor of both hands (ICD-10 - R25.1) Referral to Dr. Lopez Apr, Memory changes (ICD- 10 - R41.3) Referral to Dr. Lopez Apr, Gastroesophageal reflux disease without esophagitis (ICD-10 - K21.9) Improved on carafate w PPI. [facility] Other 06-14-2023 NoteUT Cardiology - [facility] Subjective Joe Call is a 77 [...] prior cardiac catheterizations. She has history of UT in the past and underwent balloon angioplasty (many years ago, prior to the stent era). 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 In December 2022 she was admitted to the [facility] with decompensated diastolic heart failure, she was treated with diuretic therapy. In February 2023 she was admitted to [facility] with dehydration secondary to acute gastroenteritis. She also had acute kidney injury in that setting. She has history of breast cancer more than 25 years ago s/p mastectomy, chemo and radiation therapy. She has lymphedema in the left arm. She has been doing well. No chest pain. No dyspnea. No palpitations. She reports that she is seeing a hand roller engraver for bleeding behind the eye . 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 difficile colitis (ICD-10 - A04.72) [facility] Other 04-17-2023 Evaluation note* Encounter Date Diagnosis Assessment Notes Treatment Notes Treatment Clinical Notes Feb, Gastroesophageal ref lux disease without esophagitis (ICD-10 - K21.9) [facility] Other 04-14-2023 Evaluation note* Encounter Date Diagnosis Assessment Notes Treatment Notes Treatment Clinical Notes Feb, Chronic diarrhea (ICD-10 - K52.9) [facility] Other 04-11-2023 Evaluation note* Encounter Date Diagnosis [...] it really overall has not been helpful. 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 Follow up in 3 months. [place] [employer] [facility] Other Evaluation + Plan note No data available for this section General [facility] [place] Evaluation noteNo InformationNort [employer] [facility] [employer] Other Evaluation noteNort [employer] [facility] Other Evaluation [facility]None[facility] [employer] [facility] [employer] Other Evaluation note* Diagnosis Onset Date Resolution Status Chalazion of right eye acute Immunization due acute Urinary incontinence [facility] Work Phone: Evaluation note* Diagnosis Onset Date Resolution Status Chalazion of right eye acute Immunization due acute Urinary incontinence acute Diabetes mellitus with hyperglycemia acute Hypertension acute Hypothyroidism acute Lumbar spondylosis acute Secondary hyperparathyroidism acute [facility] Work Phone: Hisqxyp general Narrative - Reported* Type Description Date [...] History COLONOSCOPY 04/10/2019 Hospitalization History See above [facility] Other Hisepcb general Narrative - Reported* Type Description Date [...] History Heart cath Surgical History back surgery 2015 Surgical History CARDIAC CATH X2 Surgical History SHOULDER PROCEDURE 2016 Surgical History COLONOSCOPY 08/2017 Surgical History COLONOSCOPY 04/10/2019 Hospitalization History See above [facility] Other History general Narrative - ReportedNoDrop Messages Other History general Narrative - ReportedNoDrop Messages Other Hisfjye general Narrative - Reported* Type Description Date [...] Hospitalization History See above [facility] DUE TO HYPOALBUMINEMIA, CHF 07/10/2023 Hospitalization History CHF 01/2023 Hospitalization History GERD 2022 Hospitalization History DIABETES ISSUES 2022 [facility] Other Hospital Discharge instructions No data available for this section [facility] [place] Progress note No data available for this section General [facility] [place] Summary Purpose Family History Relationship Condition Age [...] se, stage 4 (severe) (N18.4) Referral Organization [facility] helene Referring Provider First Name Shantel Referring Provider Last Name Tenisha Referring Provider [facility] Referred Organization [facility] Nephrology Referred Provider Cherie Rapp Referred Address [address] [place], [place],[address] Referred Provider Specialty Nephrology Referral Priority Routine General Notes Mariela Kingston 11:35:41 AM >received today, sent P2P Reason *FU 09/13 lumbar p ain Diagnosis 1 Lumbar degenerative disc disease (M51.36) Referral Organization [facility]ene Referring Provider First Name Shantel Referring Provider Last Name Tenisha Referring Provider Specialty [facility] Referred Organization [facility] Referred Provider Terell Soliz Referred Address [address] [place], [place],[address] Referred Provider Specialty Pain Medicin e Referral Priority Routine General Notes EfremMariela costello 03:09:25 PM >received today, waiting for notes to be locked EfremMariela costello 09/06/2023 10:08:29 AM >notes locked, referral faxed Clinical Notes F: [id number] Reason Poorly controlled di abetes Diagnosis 1 Type 2 diabetes maranda itus with hyperglycemia, unspecified whether jail insulin use (E11.65) Referral Organization [facility] helene Referring Provider First Name Shantel Referring Provider Last Name Tenisha Referring Provider Specialty [facility] Referred Organization Unknown Facility Referred Provider Joshua Mcconnell Referred Provider Specialty Internal Med icine Referral Priority Routine Reason tremor and memory lo ss - family history of dementia Diagnosis 1 Tremor of both hands (R25.1) Referral Organization [facility] [employer] helene Referring Provider First Name Shantel Referring Provider Last Name Tenisha Referring Provider Specialty [facility] Referred Organization Unknown Facility Referred Provider Emery [...] and content) DATE CREATED AUTHOR 05/10/2018 [facility] DATE CREATED AUTHOR AUTHOR'S ORGANIZ ATION 03/10/2023 [facility] DATE CREATED AUTHOR AUTHOR'S ORGANIZ ATION 02/20/2024 [facility] DATE CREATED AUTHOR AUTHOR'S ORGANIZ ATION 03/10/2024 [facility] DATE CREATED AUTHOR AUTHOR'S ORGANIZ ATION 03/25/2024 The [facility] REASON FOR VISIT (unrecogniz [...] End: January 18, 2024 Franchesca Sullivan APRN TELECOMMUNICATIONS ANALYST-C Attending Provider Act chiqui Start: January [...] BE BASED ON THE PRIMARY CLINICAL RECORDS. [employer] provides no warranty or guarantee of the accuracy or completeness of information in this document.
[2024-05-04 09:33] LABS: Glucometer 341 mg/dL (74-106)
--- NOTE | 2024-05-04 09:46 | CT_ITS ---
The [address] [address] Patient Name: JOE CALL MRN: [id number] date: 1945 Sex: F Assigned Patient Location: ER Current Patient Location: ER Accession/Order Number: [id number] Exam Date: 05/04/2024 11:25 Report Date: 05/04/2024 12:12 At the request of: LINDA SINGH Procedure: CT head/brain wo con EXAM: CT head/brain wo con HISTORY: Altered mental status COMPARISON: CT head 04/25/2023. TECHNIQUE: Axial noncontrast CT imaging of the brain was performed without intravenous contrast. This CT exam was performed using one or more of the following dose reduction techniques: Automated exposure control, adjustment of the MA and/or kV according to patient size, or use of iterative reconstruction technique. FINDINGS: Calvarium/skull base: No evidence of acute fracture or destructive lesion. Mastoids and middle ears demonstrate no substantial mucosal disease. Bilateral [place] ocular lens replacements. Paranasal sinuses: No air fluid levels. Brain: No acute intracranial hemorrhage. No acute large vascular territory infarct. Mild parenchymal volume loss. No mass lesion or mass effect. No hydrocephalus. Intracranial atherosclerosis. CT/CT head/brain wo con IMPRESSION: No acute intracranial process. Electronically authenticated by: JOSE TOM Date: 05/04/2024 12:12
--- NOTE | 2024-05-04 09:46 | XR_ITS ---
The [address] [address] Patient Name: JOE CALL MRN: [id number] date: 1945 Sex: F Assigned Patient Location: ED.MAIN Current Patient Location: [place] Accession/Order Number: [id number] Exam Date: 05/04/2024 11:25 Report Date: 05/04/2024 12:13 At the request of: LINDA SINGH Procedure: XR chest 1V EXAM: Chest x-ray HISTORY: . confusion . COMPARISON: 04/30/2024 TECHNIQUE: Single view of the chest FINDINGS: Upper limits normal in size. Vascularity is unremarkable. Lungs are free of focal infiltrates. Atherosclerotic changes of the thoracic aorta are noted. EKG leads overlie the chest. XR/XR chest 1V IMPRESSION: 1 borderline cardiac enlargement. 2. No infiltrates. 3. No change from the previous exam. Electronically authenticated by: NICOLAS CASTANEDA Date: 05/04/2024 12:13
--- NOTE | 2024-05-04 09:46 | ECG_ITS ---
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
--- NOTE | 2024-05-04 09:54 | ED_ITS ---
HPI HPI - General Adult General Chief complaint: Altered Mental Status Stated complaint: CONFUSION Time Seen by Provider: 05/04/24 09:42 Source: patient and family Mode of arrival: Wheelchair Limitations: no limitations History of Present Illness HPI narrative: This patient arrived by private vehicle from home. 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 He said that she has been having increasing confusion over some time now. This morning she seemed a little bit more disoriented. She was just here at this hospital for acute dehydration and acute kidney injury recently. The says he can hardly take care of her at home. He states that she can hardly use the remote TV. She has a number of medical problems as noted on her records. There is no real change in her medication. She is using oral nystatin for thrush. She said her mouth is extremely dry. She has not had any falls. He is not running a fever here in the emergency room today. Related Data Home Medications ?Medication ?Instructions ?Recorded ?Confirmed insulin glargine 100 unit/mL (3 35 unit subcut BEDTIME 04/25/23 04/30/24 mL) subcutaneous pen (Lantus Solostar U-100 Insulin) lisinopril 20 mg tablet 20 mg PO DAILY 04/25/23 04/30/24 metoprolol tartrate 100 mg tablet 150 mg PO BID 04/25/23 04/30/24 rivaroxaban 20 mg tablet (Xarelto) 20 mg PO QPM 04/25/23 04/30/24 insulin aspar prot-insulin aspart 35 unit subcut DAILY 07/08/23 04/30/24 100 unit/mL (70-30) subcutaneous pen (Novolog Mix 70-30FlexPen U-100) alprazolam 0.25 mg tablet 0.25 mg PO TID PRN anxiety 04/30/24 04/30/24 levothyroxine 125 mcg tablet 125 mcg PO .acb 04/30/24 04/30/24 oxycodone-acetaminophen 5 mg-325 1 tab PO BID PRN pain 04/30/24 04/30/24 mg tablet Previous Rx's ?Medication ?Instructions ?Recorded furosemide 40 mg tablet 40 mg PO BID #60 tabs 03/28/24 spironolactone 50 mg tablet 50 mg PO DAILY #30 tabs 03/28/24 Allergies Allergy/AdvReac Type Severity Reaction Status Date / Time shellfish derived Allergy Intermediate Verified 05/04/24 09:28 Sulfa (Sulfonamide Allergy Rash Verified 03/26/24 05:10 Antibiotics) Opioid HPI Opioid Management Most Recent Opioid Data: Last Pain Scale 0 05/01/24 05:45 Last Pain Assessment 05/01/24 16:08 Last ORT Total Score 0 04/30/24 07:17 Last ORT Risk Category Low Risk 04/30/24 07:17 PFSH PFSH Medical History (Updated 05/04/24 @ 11:51 by Lamine Rivera MD) CKD stage 3a, GFR 45-59 ml/min ?N18.31 - Chronic kidney disease, stage 3a (ICD-10) Diabetes mellitus with hyperglycemia, with long-term current use of insulin ?E11.65 - Type 2 diabetes mellitus with hyperglycemia (ICD-10) ?Z79.4 - emt intermediate (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9 - Obesity, unspecified (ICD-10) Surgical History (Updated 03/26/24 @ 06:36 by Brooke Conrad) H/O bilateral mastectomy ?Z90.13 - Acquired absence of bilateral breasts and nipples (ICD-10) Family History (Updated 07/08/23 @ 04:02 by Mira Addison) Other Family history of CHF (congestive heart failure) Family history of cancer Family history of diabetes mellitus Family history of hypertension H/O mastectomy Social History (Updated 03/26/24 @ 06:38 by Brooke Conrad) Within the past year, how often did you have a drink containing alcohol: never Within the past year, how often did you have six or more drinks on one occasion: never Score interpretation: A score less than 3 is consistent with normal alcohol consumption. 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 Highest level of school completed/degree received: some college, no degree Do you want help with school or training: No Are you now , , , , never or living with a partner: In a typical week, how many times do you talk on the telephone with family, friends, or neighbors: 3 or more times per week How often do you get together with friends or relatives: 3 or more times per week How often do you attend zoroastrianism or quaker services: never Do you belong to any clubs or organizations such as zoroastrianism groups unions, [employer] or athletic groups, or school groups: no Total score: 2 Score interpretation: A score of greater than or equal to 2 indicates the lowest level of social isolation. Little interest or pleasure in doing things: not at all Feeling down, depressed, or hopeless: not at all Feel stressed/tense/nervous/anxious/difficulty sleeping: not at all Due to disability, difficulty making decisions: No Do you think of yourself as: straight/heterosexual Gender Identity: female Exam Narrative Exam Narrative: Patient is awake alert she does not know what year it is. She knows that she will be 81 years old and 2 years and therefore she felt that she was 71 something years old. She does follow simple commands. She denies any headache chest pain or difficulty breathing. She says that she has had a rash in her perineum and lower abdominal area for many many years that is no different than usual. She said her mouth is extremely dry. Overall she appears older than stated age. She is quite morbidly obese. She is not complaining of any discomfort. Examination of chest she has some scattered rhonchi but no wheezing. There is no respiratory distress and her pulse oximetry is 96% on room air. Heart sounds are normal with no S3-S4 or murmur. I should note that she had an echocardiogram recently that showed normal left ventricular ejection fraction. Belly is obese. 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 She is having a normal brown bowel movement this time. Extremities do not show any evidence of phlebitis or DVT. She has no pain in the extremities at this time. Constitutional Vital Signs, click to edit/add: Last Vital Signs Pulse 61 05/04/24 09:24 Resp 22 H 05/04/24 09:24 BP 161/59 H 05/04/24 09:33 Pulse Ox 96 05/04/24 09:24 O2 Del Method Room Air 05/04/24 09:24 Course Vital Signs Vital signs: Vital Signs Pulse Rate 61 05/04/24 09:24 Respiratory Rate 22 H 05/04/24 09:24 Blood Pressure 151/71 H 05/04/24 09:24 Pulse Oximetry 96 05/04/24 09:24 Oxygen Delivery Method Room Air 05/04/24 09:24 Pulse Rate 61 05/04/24 09:24 Respiratory Rate 22 H 05/04/24 09:24 Blood Pressure 161/59 H 05/04/24 09:33 Pulse Oximetry 96 05/04/24 09:24 Oxygen Delivery Method Room Air 05/04/24 09:24 Medical Decision Making MDM Narrative Medical decision making narrative: I have reviewed previous admissions and discharge summaries. This patient came in with marked elevation of BUN and creatinine and while there is a trend there was no substantial improvement in her overall kidney function. Her is unable to take care of her at home. She apparently has been deteriorating recently. This will be discussed with the on-call hospitalist. Lab Data Labs: Lab Results 05/04/24 05/04/24 Range/Units 09:30 10:51 WBC 6.9 (4.0-11.0) 10^3/uL RBC 4.09 L (4.20-5.40) 10^6/uL Hgb 12.0 (12.0-16.0) g/dL Hct 37.6 (36.0-48.0) % MCV 91.9 (81.0-99.0) fL MCH 29.3 (26.7-34.0) pg MCHC 31.9 (29.9-35.2) g/dL RDW 13.6 (11.0-15.0) % Plt Count 160 (150-450) 10^3/uL MPV 11.4 (9.5-13.5) fL Neut % (Auto) 68.9 (43.0-75.0) % Lymph % (Auto) 17.8 L (20.5-60.0) % [place] % (Auto) 10.4 (1.7-12.0) % Eos % (Auto) 1.7 (0.9-7.0) % Baso % (Auto) 0.9 (0.2-2.0) % Neut # (Auto) 4.8 (1.4-6.5) 10^3/uL Lymph # (Auto) 1.2 (1.2-3.8) 10^3/uL [place] # (Auto) 0.7 (0.3-0.8) 10^3/uL Eos # (Auto) 0.1 (0.0-0.7) 10^3/uL Baso # (Auto) 0.1 (0.0-0.1) 10^3/uL Abs Immat Gran (auto) 0.02 (0.00-0.03) 10^3/uL Imm/Tot Granulo (auto) 0.3 (0.0-0.5) % VBG pH 7.353 (7.330-7.430) VBG pCO2 38.5 L (40.0-52.0) mmHg Sodium 134 L (136-145) mmol/L Potassium 5.6 H (3.5-5.1) mmol/L Chloride 101 (98-107) mmol/L Carbon Dioxide 22.4 (21.0-32.0) mmol/L Anion Gap 16.2 BUN 86.0 H* (7.0-18.0) mg/dL Creatinine 2.24 H (0.55-1.02) mg/dL Est GFR ( Amer) 26 L (>=60) Est GFR (Non-Af Amer) 21 L (>=60) BUN/Creatinine Ratio 38.4 Glucose 369 H (74-106) mg/dL Lactate 1.2 (0.4-2.0) mmol/L Calcium 8.8 (8.5-10.1) mg/dL Total Bilirubin 0.4 (0.2-1.0) mg/dL AST 8 L (15-37) U/L ALT 16 (14-59) U/L Alkaline Phosphatase 86 (46-116) U/L Ammonia 12 (11-32) umol/L Troponin I High Sens 10.5 (4.0-51.3) pg/mL NT-Pro-B Natriuret Pep 2342.0 H* (<=1800.0) pg/mL Total Protein 7.7 (6.4-8.2) g/dL Albumin 2.8 L (3.4-5.0) g/dL Globulin 4.9 g/dL Albumin/Globulin Ratio 0.6 POC Glucose 341 H (74-106) mg/dL Discharge Plan Discharge Chief Complaint: Altered Mental Status Clinical Impression: Acute renal failure Patient Disposition: Admitted as Observation Time of Disposition Decision: 11:51 Prescriptions / Home Meds: No Action insulin glargine [Lantus Solostar U-100 Insulin] 100 unit/mL (3 mL) insulin pen 35 unit SUBCUT BEDTIME lisinopril 20 mg tablet 20 mg PO DAILY metoprolol tartrate 100 mg tablet 150 mg PO BID Xarelto 20 mg tablet 20 mg PO QPM Rx Instructions: must administer with evening meal insulin asp prt-insulin aspart [Novolog Mix 70-30FlexPen U-100] 100 unit/mL (70-30) insulin pen 35 unit subcut DAILY Rx Instructions: USE DIRECTED PER SLIDING SCALE- MAX 35 UNITS DAILY furosemide 40 mg tablet 40 mg PO BID Qty: 60 0RF Hold Instructions: Until follow up appt w/ PCP to discuss dosing Patient Comments: Was told to only take half of this med as of 04/29/2024 spironolactone 50 mg tablet 50 mg PO DAILY Qty: 30 0RF Hold Instructions: Until follow up appt w/ PCP to discuss dosing levothyroxine 125 mcg tablet 125 mcg PO .acb alprazolam 0.25 mg tablet 0.25 mg PO TID PRN (Reason: anxiety) Patient Comments: 0.25mg PO TID PRN for anxiety oxycodone-acetaminophen 5-325 mg tablet 1 tab PO BID PRN (Reason: pain) Print Language: Guatemalan Referrals: Theodora Cuevas MD [Primary Care Provider] - 1 week
[2024-05-04 11:03] LABS: Basophils Absolute Auto 0.1 10^3/uL (0.0-0.1); Basophils Percent Auto 0.9 % (0.2-2.0); Eosinophils Absolute Auto 0.1 10^3/uL (0.0-0.7); Eosinophils Percent Auto 1.7 % (0.9-7.0); Hematocrit 37.6 % (36.0-48.0); Immature Granulocytes Abs Auto 0.02 10^3/uL (0.00-0.03); Immature Granulocytes Pct Auto 0.3 % (0.0-0.5); Lymphocytes Absolute Auto 1.2 10^3/uL (1.2-3.8); Lymphocytes Percent Auto 17.8 % (20.5-60.0); Mean Corpuscular HGB Conc 31.9 g/dL (29.9-35.2); Mean Corpuscular Hemoglobin 29.3 pg (26.7-34.0); Mean Corpuscular Volume 91.9 fL (81.0-99.0); Mean Platelet Volume 11.4 fL (9.5-13.5); Monocytes Absolute Auto 0.7 10^3/uL (0.3-0.8); Monocytes Percent Auto 10.4 % (1.7-12.0); Neutrophils Absolute Auto 4.8 10^3/uL (1.4-6.5); Neutrophils Percent Auto 68.9 % (43.0-75.0); Platelet Count 160 10^3/uL (150-450); Red Blood Count 4.09 10^6/uL (4.20-5.40); Red Cell Distribution Width 13.6 % (11.0-15.0); White Blood Count 6.9 10^3/uL (4.0-11.0)
[2024-05-04 11:12] LABS: PCO2 VBG 38.5 mmHg (40.0-52.0); pH VBG 7.353 (7.330-7.430)
[2024-05-04 11:13] LABS: Ammonia 12 umol/L (11-32)
[2024-05-04 11:18] LABS: Alanine Aminotransferase 16 U/L (14-59); Albumin Globulin Ratio 0.6; Albumin Level 2.8 g/dL (3.4-5.0); Alkaline Phosphatase 86 U/L (46-116); Anion Gap 16.2; Aspartate Amino Transferase 8 U/L (15-37); BUN Creatinine Ratio 38.4; Bilirubin Total 0.4 mg/dL (0.2-1.0); Calcium 8.8 mg/dL (8.5-10.1); Carbon Dioxide 22.4 mmol/L (21.0-32.0); Chloride 101 mmol/L (98-107); Estimated GFR (African America 26 (>=60); Estimated GFR (Non-African Ame 21 (>=60); Globulin 4.9 g/dL; Glucose 369 mg/dL (74-106); Potassium 5.6 mmol/L (3.5-5.1); Sodium 134 mmol/L (136-145); Total Protein 7.7 g/dL (6.4-8.2)
[2024-05-04 11:19] LABS: Lactate/Lactic Acid 1.2 mmol/L (0.4-2.0); Troponin I High Sensitivity 10.5 pg/mL (4.0-51.3)
[2024-05-04 12:00] LABS: Bilirubin Urine NEGATIVE (NEGATIVE); Blood Urine MODERATE (NEGATIVE); Glucose Urine UA 250 mg/dL (NEGATIVE); Ketones Urine NEGATIVE (NEGATIVE); Leukocyte Esterase Urine NEGATIVE (NEGATIVE); Nitrite Urine NEGATIVE (NEGATIVE); Protein Urine 100 mg/dL (NEG/TRACE); Specific Gravity Urine 1.015 (1.005-1.025); Urobilinogen Urine 0.2 EU/dL (0.2-1.0)
[2024-05-04 12:05] LABS: Clarity Urine SLIGHTLY CLOUDY (CLEAR); Color Urine YELLOW (YELLOW); Urine Microscopic Indicated YES
--- NOTE | 2024-05-04 12:05 | P.HP_ITS ---
HPI H&P: HPI History of Present Illness Chief complaint: ACUTE RENAL FAILURE/AMS Narrative: Patient presented to the emergency room with altered mental status, much more confused this morning compared to previous days. She did have a recent discharge from this facility. She was given some fluids in the ER and she does feel little bit better, is oriented currently. But this has been waxing and waning all morning according to the . When I saw patient in the emergency room, she was resting comfortably in bed, just feels general fatigue. No other specific complaints. She does have a history of coronary artery disease but not having any chest pain. Denies shortness of breath. With uncontrolled diabetes mellitus, generalized weakness high risk for fall and altered mental status, patient will be admitted to the medical surgical floor Opioid HPI Opioid Management Most Recent Pain and Opioid Data: Last Pain Scale 0 05/01/24 05:45 Last Pain Assessment 05/01/24 16:08 Last ORT Total Score 0 04/30/24 07:17 Last ORT Risk Category Low Risk 04/30/24 07:17 Review of Systems ROS Status of ROS 10 or more systems reviewed and unremark able except as noted in history and below [facility] Medical History (Updated 05/04/24 @ 11:51 by Lamine Rivera MD) CKD stage 3a, GFR 45-59 ml/min ?N18.31 - Chronic kidney disease, stage 3a (ICD-10) Diabetes mellitus with hyperglycemia, with long-term current use of insulin ?E11.65 - Type 2 diabetes mellitus with hyperglycemia (ICD-10) ?Z79.4 - intermediate manager (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9 - Obesity, unspecified (ICD-10) Surgical History (Updated 03/26/24 @ 06:36 by Brooke Conrad) H/O bilateral mastectomy ?Z90.13 - Acquired absence of bilateral breasts and nipples (ICD-10) Family History (Updated 07/08/23 @ 04:02 by Mira Addison) Other Family history of CHF (congestive heart failure) Family history of cancer Family history of diabetes mellitus Family history of hypertension H/O mastectomy Social History (Updated 03/26/24 @ 06:38 by Brooke Conrad) Within the past year, how often did you have a drink containing alcohol: never Within the past year, how often did you have six or more drinks on one occasion: never Score interpretation: A score less than 3 is consistent with normal alcohol consumption. 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 Highest level of school completed/degree received: some college, no degree Do you want help with school or training: No Are you now , , , , never or living with a partner: In a typical week, how many times do you talk on the telephone with family, friends, or neighbors: 3 or more times per week How often do you get together with friends or relatives: 3 or more times per week How often do you attend jehovah's witness or yarsani services: never Do you belong to any clubs or organizations such as jehovah's witness groups unions, [employer] or athletic groups, or school groups: no Total score: 2 Score interpretation: A score of greater than or equal to 2 indicates the lowest level of social isolation. Little interest or pleasure in doing things: not at all Feeling down, depressed, or hopeless: not at all Feel stressed/tense/nervous/anxious/difficulty sleeping: not at all Due to disability, difficulty making decisions: No Do you think of yourself as: straight/heterosexual Gender Identity: female Meds Home Medications and Allergies Home Medications ?Medication ?Instructions ?Recorded ?Confirmed ?Type insulin glargine 100 unit/mL (3 35 unit subcut BEDTIME 04/25/23 04/30/24 History mL) subcutaneous pen (Lantus Solostar U-100 Insulin) lisinopril 20 mg tablet 20 mg PO DAILY 04/25/23 04/30/24 History metoprolol tartrate 100 mg tablet 150 mg PO BID 04/25/23 04/30/24 History rivaroxaban 20 mg tablet (Xarelto) 20 mg PO QPM 04/25/23 04/30/24 History insulin aspar prot-insulin aspart 35 unit subcut DAILY 07/08/23 04/30/24 History 100 unit/mL (70-30) subcutaneous pen (Novolog Mix 70-30FlexPen U-100) furosemide 40 mg tablet 40 mg PO BID #60 tabs 03/28/24 04/30/24 Rx spironolactone 50 mg tablet 50 mg PO DAILY #30 tabs 03/28/24 04/30/24 Rx alprazolam 0.25 mg tablet 0.25 mg PO TID PRN anxiety 04/30/24 04/30/24 History levothyroxine 125 mcg tablet 125 mcg PO .acb 04/30/24 04/30/24 History oxycodone-acetaminophen 5 mg-325 1 tab PO BID PRN pain 04/30/24 04/30/24 History mg tablet Allergies Allergy/AdvReac Type Severity Reaction Status Date / Time shellfish derived Allergy Intermediate Verified 05/04/24 09:28 Sulfa (Sulfonamide Allergy Rash Verified 03/26/24 05:10 Antibiotics) Exam Constitutional Vital Signs, click to edit/add: Last Vital Signs Pulse 61 05/04/24 09:24 Resp 22 H 05/04/24 09:24 BP 161/59 H 05/04/24 09:33 Pulse Ox 96 05/04/24 09:24 O2 Del Method Room Air 05/04/24 09:24 Documenting provider has reviewed patient's vital signs: yes Common normals: no apparent distress Chest Common normals: inspection of chest normal Respiratory Common normals: normal respiratory effort, no retractions and clear to auscultation bilaterally Cardio Common normals: regular rate, regular rhythm and no murmurs GI Common normals: Normal to inspection, nondistended, normoactive bowel sounds present, soft to palpation, non-tender, no hepatosplenomegaly and no masses Extremity Common normals: normal to inspection, full ROM, no clubbing, cyanosis or edema and no calf tenderness Neuro Common normals: oriented x3, CN's II-XII intact bilaterally and moves all extremities Results Labs Labs: Short CBC 05/04/24 Range/Units 10:51 WBC 6.9 (4.0-11.0) 10^3/uL Hgb 12.0 (12.0-16.0) g/dL Hct 37.6 (36.0-48.0) % Plt Count 160 (150-450) 10^3/uL BMP 05/04/24 10:51 Sodium 134 L Potassium 5.6 H Chloride 101 Carbon Dioxide 22.4 BUN 86.0 H* Creatinine 2.24 H Glucose 369 H Calcium 8.8 Liver Function 05/04/24 Range/Units 10:51 Total Bilirubin 0.4 (0.2-1.0) mg/dL AST 8 L (15-37) U/L ALT 16 (14-59) U/L Alkaline Phosphatase 86 (46-116) U/L Albumin 2.8 L (3.4-5.0) g/dL ABG ABG results: 05/04/24 10:51 VBG pH 7.353 VBG pCO2 38.5 L Assessment and Plan Assessment and Plan (1) Acute renal failure: (2) Acute dehydration: (3) Hyperkalemia: (4) CKD stage 3a, GFR 45-59 ml/min: (5) Diabetes mellitus with hyperglycemia, with long-term current use of insulin: (6) Hypothyroidism (acquired): Plan Acute respiratory distress, altered mental status, uncontrolled hypertension, acute renal failure on top of chronic kidney disease secondary to diabetes mellitus being uncontrolled-Place patient on sliding scale, suspect infectious etiology. Check urinalysis, also check thyroid profile. Altered mental status likely secondary to uncontrolled diabetes and infectious etiology-urine culture pending Acute renal failure on top of chronic kidney disease-gentle hydration secondary to history of acute combined congestive heart failure and currently elevated BNP although that could be related to her acute renal failure Chronic combined congestive heart failure-check echocardiogram, consider consultation to cardiology Hyperkalemia-2 doses of Kayexalate, monitor daily Thrush-oral Diflucan Tinea corporis in skin folds-ketoconazole Generalized anxiety disorder-continue with home medications Hypertension-continue home medications-will hold off on TOLU inhibitors IDDM-insulin sliding scale Atrial fibrillation-continue with Xarelto Admission status: Patient with acute altered mental status likely infectious etiology, patient with recent discharge so failed outpatient treatment, medically necessary treatment will span 2 midnights. Inpatient status.
--- OUTSIDE RECORDS SUMMARY | 2024-05-04 12:17 | XMS_ITS | CCD ---
Author Organization [facility] CliniSyal Care Team Providers Care Supervisor Hard Candy Name Role Phone UNKNOWN, PROVIDER Unavailable Unavailable [...] Unavailable MD Shantel Steven Primary Care Provider [phone] MD Shantel Steven Other Provider MD Eloina Hussein Attending Provider [phone] MD Eloina Hussein Referring Provider Shantel Steven Consulting Unavailable Shantel Steven Primary Care Unavailable Eloina Hussein Referring Unavailable Eloina Hussein Attending Unavailable Eloina Hussein Admitting Unavailable Allergies Allergy Classification Reported Allergen(s) Allergy Type Date of Onset Reaction(s) Facility (1 source) Iodine (And Iodine Containting Drugs) Drug allergy (disorder) 03-04-20 12 [facility] (20 sources) Shellfish; 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: [Shellfish] Food allergy (disorder) 03-04-20 12 rash, Eruption of skin (disorder) [facility] (7 sources) Sulfonamides (Antibiotic); 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: [SULFA (SULFONAMIDE ANTIBIOTICS)] Drug allergy (disorder) 03-04-20 12 Rash [facility] (20 sources) Sulfacetamide Drug Allergy 02-15-20 24 diarrhea [facility] (13 sources) Contrast media; 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: [contrast media (iodine-based)] Drug allergy Unknown (qualifier value) [facility] [place] (2 sources) Sulfonamides (Antibiotic); 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: [sulfa drugs] Drug allergy Diarrhea (finding) [facility] (2 sources) Glucosamine Drug Allergy [facility] (2 sources) Iodine (And Iodine Containting Drugs) Drug allergy (disorder) 08-09-20 17 [facility] (11 sources) Contrast media Propensity to adverse reactions 11-18-[address] DYE hi5 Other (12 sources) Iodine; 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: [IODINE] Drug Allergy 10-30-20 14 Unknown [facility] (11 sources) Substance with sulfonamide structure and antibacterial mechanism of action (substance) Drug allergy Unknown hi5 Other (11 sources) Dyes Propensity to adverse reactions Comment:CT Dyes,Dyes,IVP Dyes LP33.TV [facility] [employer] Other (5 sources) Shellfish; 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: [SHELLFISH DERIVED] Allergy to substance 10-30-20 [facility] (5 sources) Iodinated Contrast Media; 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: [IODINATED CONTRAST MEDIA] Allergy to substance 02-15-20 [facility] (1 source) Chocolate; 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: [CHOCOLATE FLAVOR] Propensity to adverse reactions to drug (disorder) 01-17-20 [facility] (1 source) Sulfacetamide Drug Allergy 02-15-20 [facility] (1 source) Sulfonamides (Antibiotic) Drug allergy (disorder) 02-15-20 [facility] Medications Current Medications Medication Drug [...] Daily, # 30 EA, Refills(s) 11, Pharmacy: [facility], 165.1, cm, 03/07/21 13:49:00 EDT, Height/Length [...] 19, 2021 12:00am take 1 capsule by [facility] every twelve hours dilTIAZem HCl ER 120 MG 1 capsule Orally Twice a day Active famotidine 20 mg oral tablet (20 sources) Histamine-2 Receptor Antagonist Start: 01-17-2024 take 20 mg by mouth once daily at bedtime Famotidine Active 20 MG PO Daily at bedtime January 17, 2024 1:00am Start: 01-07-2023 take 1 tablet by [facility] every twenty-four hours Famotidine 20 MG [...] by joesph th every twenty-four hours nystatin [id number] unt/ml topical cream (19 sources) Polyene Antifungal Start: 01-17-2024 Nystatin Ac tive 1 APPLIC TOPICAL Twice daily January 17, 2024 1:00am Nystatin 939618 UNIT/GM 1 application Externally Twice a day for 10 days Active Nystatin 012518 UNIT/GM 1 application Externally Twice a day [...] capsule Orally Once a day Active Vitamins A,C,L-Iluh-Nwkaqc (Preservision Areds) 4,296 mcg-226 mg-90 mg capsule (3 sources) Start: 01-17-2024 take 1 capsule by mouth twice daily Vitamins A,C,D-Todi-Uygktc (Preservision Areds) 4,296 mcg-226 mg-90 mg capsule [...] 12, 2021 12:00am June 19, 2021 3:13am [id number] 200 actuat albuterol 0.09 mg/actuat metered dose [...] bedtime Orally Once a day Not-Taking amylase 873556 unt / lipase 68555 unt / protease 19655 unt delayed release oral capsule (4 sources) Start: End: Hvhrzc-Hiuputpw-Dwg lase (Creon) 24,000-76,000 -120,000 unit capsule,delayed release(DR/EC) Discontinued 1 - 2 CAP PO 1-2 TIMES DAILY June 11, 2021 12:00am June 19, 2021 3:12am Start: 05-10-2021 Creon 24,000 u nits oral delayed release capsule See Instructions, take 3 caps with each meal and 2 caps with each snack., # 390 caplet(s), Refills(s) 0, Pharmacy: [facility], 165.1, cm, 04/18/21 13:02:00 EDT, Height/Length Dosing, 116.4, kg, 04/18/21 13:02:00 EDT, Weight Dosing Start Date: 05/10/21 Status: Ordered biotin 5 mg oral capsule (7 sources) Start: 01-17-2024 End: 04-03-2024 take 5 mg by mouth once daily Biotin Discontinued 5 MG PO Daily January 17, 2024 1:00am April 03, 2024 11:46am take 1 capsule by [facility] every twenty-four hours Biotin 5 MG 1 [...] tablet by joesph th every eight hours Satin 8-Khx-Otu-Fish Oil (Fish Oil) 1,000 mg (120 mg-180 mg) capsule (3 sources) Start: 01-17-2024 End: 04-03-2024 take 1 capsule by mouth once daily Satin 5-Fkz-Mjr-Fish Oil (Fish Oil) 1,000 mg (120 mg-180 mg) capsule Discontinued 1 CAP PO Daily January 17, 2024 1:00am April 03, 2024 11:49am Start: 01-17-2024 take 1 capsule by [facility] once daily Satin 9-Ili-Axd-Fish Oil (Fish Oil) 1,000 mg (120 mg-180 [...] Coronary arteriosclerosis; 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: [Atherosclerotic heart disease of [place] coronary artery without angina pectoris] Onset: 3 [...] sources) Long-term current use of insulin; 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: [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] 01-17-2024 Episodic Other aftercare (1 source) Other continuous churn buttermaker (current) drug therapy; 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: [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] Onset: 3 Episodic Other aftercare (1 source) continuous churn buttermaker (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 anticoagulants; 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: [PRISON CURRNT USE 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] Onset: 3 Episodic Other [...] Da te Episodic/Chronic Other aftercare (4 sources) [facility] (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 insulin; 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: [BUSINESS OFFICE ASSISTANT CURRENT USE OF INSULIN] Onset: 3 Episodic [...] Basophils (Bld) [#/Vol] 0.1 10 3/uL 0.0-0.1 [facility] Basophils/100 WBC Auto (Bld) on 03-28-2024 Basophils/100 WBC (Bld) 0.9 % 0.2-2.0 [facility] Eosinophils/100 WBC Auto (Bl d)on 03-28-2024 Eosinophils/100 WBC (Bld) 1.7 % 0.9-7.0 [facility] Erythrocyte distribution wid th Auto (RBC) [Ratio]on 03-28-2024 Erythrocyte distribution width (RBC) [Ratio] 14.2 % 11.0-15.0 [facility] Hematocrit Auto (Bld) [Volum e fraction]on 03-28-2024 Hematocrit (Bld) [Volume fraction] 40.0 % 36.0-48.0 [facility] Hemoglobin [Mass/volume] in Bloodon 03-28-2024 Hemoglobin (Bld) [Mass/Vol] 12.6 g/dL 12.0-16.0 [facility] Laboratory - Hematology and Cell countson 03-28-2024 Immature granulocytes/100 WBC (Bld) 0.4 % 0.0-0.5 [facility] Leukocytes [#/volume] correc gali for nucleated erythrocytes in Blood by Automated counon 03-28-2024 WBC corrected for nucl RBC Auto (Bld) [#/Vol] 8.4 10 3/uL 4.0-11.0 [facility] Lymphocytes Auto (Bld) [#/Vo l]on 03-28-2024 Lymphocytes (Bld) [#/Vol] 1.8 10 3/uL 1.2-3.8 [facility] Lymphocytes/100 WBC Auto (Bl d)on 03-28-2024 Lymphocytes/100 WBC (Bld) 21.4 % 20.5-60.0 [facility] MCH Auto (RBC) [Entitic mass ]on 03-28-2024 MCH (RBC) [Entitic mass] 29.0 pg 26.7-34.0 [facility] MCHC Auto (RBC) [Mass/Vol]on 03-28-2024 MCHC (RBC) [Mass/Vol] 31.5 g/dL 29.9-35.2 [facility] MCV Auto (RBC) [Entitic vol] on 03-28-2024 MCV (RBC) [Entitic vol] 92.0 fL 81.0-99.0 [facility] Monocytes Auto (Bld) [#/Vol] on 03-28-2024 Monocytes (Bld) [#/Vol] 0.8 10 3/uL 0.3-0.8 [facility] Monocytes/100 WBC Auto (Bld) on 03-28-2024 Monocytes/100 WBC (Bld) 9.7 % 1.7-12.0 [facility] Neutrophils Auto (Bld) [#/Vo l]on 03-28-2024 Neutrophils (Bld) [#/Vol] 5.6 10 3/uL 1.4-6.5 [facility] Neutrophils/100 WBC Auto (Bl d)on 03-28-2024 Neutrophils/100 WBC (Bld) 65.9 % 43.0-75.0 [facility] No Panel Informationon 03-28 Eosinophils # (Auto) 0.1 10 3/uL 0.0-0.7 [facility] Immature Granulocyte # (Auto) 0.03 10 3/uL 0.00-0.03 [facility] Platelet mean volume Auto (B ld) [Entitic vol]on 03-28-2024 Platelet mean volume (Bld) [Entitic vol] 10.5 fL 9.5-13.5 [facility] Platelets Auto (Bld) [#/Vol] on 03-28-2024 Platelets (Bld) [#/Vol] 197 10 3/uL 150-450 [facility] RBC Auto (Bld) [#/Vol]on RBC (Bld) [#/Vol] 4.35 10 6/uL 4.20-5.[address] [facility] Basophils Auto (Bld) [#/Vol] on 03-27-2024 Basophils (Bld) [#/Vol] 0.1 10 3/uL 0.0-0.1 [facility] Basophils/100 WBC Auto (Bld) on 03-27-2024 Basophils/100 WBC (Bld) 0.8 % 0.2-2.0 [facility] Eosinophils/100 WBC Auto (Bl d)on 03-27-2024 Eosinophils/100 WBC (Bld) 1.1 % 0.9-7.0 [facility] Erythrocyte distribution wid th Auto (RBC) [Ratio]on 03-27-2024 Erythrocyte distribution width (RBC) [Ratio] 14.2 % 11.0-15.0 [facility] Glucose mean value [Mass/vol ume] in Blood Estimated from glycated hemoglobinon 03-27-2024 Average glucose Estimated from glycated hemoglobin (Bld) [Mass/Vol] 275 mg/dL [facility] Hematocrit Auto (Bld) [Volum e fraction]on 03-27-2024 Hematocrit (Bld) [Volume fraction] 37.4 % 36.0-48.0 [facility] Hemoglobin [Mass/volume] in Bloodon 03-27-2024 Hemoglobin (Bld) [Mass/Vol] 12.1 g/dL 12.0-16.0 [facility] Laboratory - Hematology and Cell countson 03-27-2024 HbA1c (Bld) [Mass fraction] 11.2 % 4.5-6.2 [facility] Comment on above: ADA RECOMMENDED LIMI T 4.0 - 6.0ADA THERAPEUTIC TARGET < 7.0ACTION SUGGESTED> 7.0 Immature granulocytes/100 WBC (Bld) 0.3 % 0.0-0.5 [facility] Leukocytes [#/volume] correc gali for nucleated erythrocytes in Blood by Automated counon 03-27-2024 WBC corrected for nucl RBC Auto (Bld) [#/Vol] 9.7 10 3/uL 4.0-11.0 [facility] Lymphocytes Auto (Bld) [#/Vo l]on 03-27-2024 Lymphocytes (Bld) [#/Vol] 1.3 10 3/uL 1.2-3.8 [facility] Lymphocytes/100 WBC Auto (Bl d)on 03-27-2024 Lymphocytes/100 WBC (Bld) 13.3 % 20.5-60.0 [facility] MCH Auto (RBC) [Entitic mass ]on 03-27-2024 MCH (RBC) [Entitic mass] 29.2 pg 26.7-34.0 [facility] MCHC Auto (RBC) [Mass/Vol]on 03-27-2024 MCHC (RBC) [Mass/Vol] 32.4 g/dL 29.9-35.2 [facility] MCV Auto (RBC) [Entitic vol] on 03-27-2024 MCV (RBC) [Entitic vol] 90.3 fL 81.0-99.0 [facility] Monocytes Auto (Bld) [#/Vol] on 03-27-2024 Monocytes (Bld) [#/Vol] 0.8 10 3/uL 0.3-0.8 [facility] Monocytes/100 WBC Auto (Bld) on 03-27-2024 Monocytes/100 WBC (Bld) 8.4 % 1.7-12.0 [facility] Neutrophils Auto (Bld) [#/Vo l]on 03-27-2024 Neutrophils (Bld) [#/Vol] 7.4 10 3/uL 1.4-6.5 [facility] Neutrophils/100 WBC Auto (Bl d)on 03-27-2024 Neutrophils/100 WBC (Bld) 76.1 % 43.0-75.0 [facility] No Panel Informationon 03-27 Eosinophils # (Auto) 0.1 10 3/uL 0.0-0.7 [facility] Immature Granulocyte # (Auto) 0.03 10 3/uL 0.00-0.03 [facility] Platelet mean volume Auto (B ld) [Entitic vol]on 03-27-2024 Platelet mean volume (Bld) [Entitic vol] 10.6 fL 9.5-13.5 [facility] Platelets Auto (Bld) [#/Vol] on 03-27-2024 Platelets (Bld) [#/Vol] 204 10 3/uL 150-450 [facility] RBC Auto (Bld) [#/Vol]on RBC (Bld) [#/Vol] 4.14 10 6/uL 4.20-5.[address] [facility] Basophils Auto (Bld) [#/Vol] on 03-26-2024 Basophils (Bld) [#/Vol] 0.1 10 3/uL 0.0-0.1 [facility] Basophils/100 WBC Auto (Bld) on 03-26-2024 Basophils/100 WBC (Bld) 0.8 % 0.2-2.0 [facility] Eosinophils/100 WBC Auto (Bl d)on 03-26-2024 Eosinophils/100 WBC (Bld) 1.2 % 0.9-7.0 [facility] Erythrocyte distribution wid th Auto (RBC) [Ratio]on 03-26-2024 Erythrocyte distribution width (RBC) [Ratio] 14.5 % 11.0-15.0 [facility] Estimated glomerular filtrat ion rate (GFR) non- Americanon 03-26-2024 GFR/1.73 sq M.predicted among non-blacks MDRD (S/P/Bld) [Vol rate/Area] 46 mL/min/{1.73_m2} >=60 [facility] Glucose mean value [Mass/vol ume] in Blood Estimated from glycated hemoglobinon 03-26-2024 Average glucose Estimated from glycated hemoglobin (Bld) [Mass/Vol] 275 mg/dL [facility] Hematocrit Auto (Bld) [Volum e fraction]on 03-26-2024 Hematocrit (Bld) [Volume fraction] 40.1 % 36.0-48.0 [facility] Hemoglobin [Mass/volume] in Bloodon 03-26-2024 Hemoglobin (Bld) [Mass/Vol] 12.7 g/dL 12.0-16.0 [facility] Laboratory - Chemistry and C hemistry - challengeon 03-26-2024 Calcium [Mass/Vol] 9.1 mg/dL 8.5-10.1 [facility] Chloride [Moles/Vol] 102 mmol/L 98-107 [facility] CO2 [Moles/Vol] 28.5 mmol/L 21.0-32.0 [facility] Creatinine [Mass/Vol] 1.14 mg/dL 0.55-1.02 [facility] Free T4 [Mass/Vol] 1.29 ng/dL 0.76-1.46 [facility] GFR/1.73 sq M.predicted MDRD (S/P/Bld) [Vol rate/Area] 56 mL/min/{1.73_m2} >=60 [facility] Glucose [Mass/Vol] 246 mg/dL 74-106 [facility] Natriuretic peptide B (Bld) [Mass/Vol] 2890.0 pg/mL <=1800.0 [facility] Comment on above: RESULTS CALLED TO YOEL TAI RN @BY Alla Kunz 0556 Potassium [Moles/Vol] 4.3 mmol/L 3.5-5.1 [facility] Sodium [Moles/Vol] 136 mmol/L 136-145 [facility] TSH Qn 6.001 m[IU]/L 0.358-3.740 [facility] Urea nitrogen [Mass/Vol] 35.0 mg/dL 7.0-18.0 [facility] Urea nitrogen/Creatinine [Mass ratio] 30.7 mg/mg [facility] Laboratory - Hematology and Cell countson 03-26-2024 HbA1c (Bld) [Mass fraction] 11.2 % 4.5-6.2 [facility] Comment on above: ADA RECOMMENDED LIMI T 4.0 - 6.0ADA THERAPEUTIC TARGET < 7.0ACTION SUGGESTED> 7.0 Immature granulocytes/100 WBC (Bld) 0.2 % 0.0-0.5 [facility] Leukocytes [#/volume] correc gali for nucleated erythrocytes in Blood by Automated counon 03-26-2024 WBC corrected for nucl RBC Auto (Bld) [#/Vol] 8.3 10 3/uL 4.0-11.0 [facility] Lymphocytes Auto (Bld) [#/Vo l]on 03-26-2024 Lymphocytes (Bld) [#/Vol] 1.4 10 3/uL 1.2-3.8 [facility] Lymphocytes/100 WBC Auto (Bl d)on 03-26-2024 Lymphocytes/100 WBC (Bld) 16.5 % 20.5-60.0 [facility] MCH Auto (RBC) [Entitic mass ]on 03-26-2024 MCH (RBC) [Entitic mass] 29.1 pg 26.7-34.0 [facility] MCHC Auto (RBC) [Mass/Vol]on 03-26-2024 MCHC (RBC) [Mass/Vol] 31.7 g/dL 29.9-35.2 [facility] MCV Auto (RBC) [Entitic vol] on 03-26-2024 MCV (RBC) [Entitic vol] 92.0 fL 81.0-99.0 [facility] Monocytes Auto (Bld) [#/Vol] on 03-26-2024 Monocytes (Bld) [#/Vol] 0.7 10 3/uL 0.3-0.8 [facility] Monocytes/100 WBC Auto (Bld) on 03-26-2024 Monocytes/100 WBC (Bld) 7.9 % 1.7-12.0 [facility] Neutrophils Auto (Bld) [#/Vo l]on 03-26-2024 Neutrophils (Bld) [#/Vol] 6.1 10 3/uL 1.4-6.5 [facility] Neutrophils/100 WBC Auto (Bl d)on 03-26-2024 Neutrophils/100 WBC (Bld) 73.4 % 43.0-75.0 [facility] No Panel Informationon 03-26 Eosinophils # (Auto) 0.1 10 3/uL 0.0-0.7 [facility] Immature Granulocyte # (Auto) 0.02 10 3/uL 0.00-0.03 [facility] Troponin I High Sensitivity 12.4 pg/mL 4.0-51.3 [facility] Comment on above: CUT-OFF POINTS HAVE [...] volume (Bld) [Entitic vol] 10.8 fL 9.5-13.5 [facility] Platelets Auto (Bld) [#/Vol] on 03-26-2024 Platelets (Bld) [#/Vol] 225 10 3/uL 150-450 [facility] RBC Auto (Bld) [#/Vol]on RBC (Bld) [#/Vol] 4.36 10 6/uL 4.20-5.[address] [facility] Serum or plasma anion gap de terminationon 03-26-2024 Anion gap [Moles/Vol] 9.8 mmol/L [facility] MR cervical spine wo conon 0 03-13-2024 MR cervical spine wo con [facility] [place] [place] [address] MRI Report Signed Patient: Joe Call MR#: [id number] 0 : 1945 Acct:[id number] Age/Sex: 78 / F ADM Date: 03/13/24 Loc: [facility] Room: Type: [facility] Attending Dr: Eloina Hussein MD Copies to: [...] Jarred Randolph M.D.03/13/2024 3:47 PM Dictation Location: [place] [address] Transcribed By: [facility] 03/13/24 1547 Dictated By: Jarred Randolph DO 03/13/24 154 Signed By: 03/13/24 1547 Normal [facility] XR pre/post mri xrayon 03-13 XR pre/post mri xray [facility] [address] MRI Report Signed Patient: Joe Call MR#: [id number] 0 : 1945 Acct:[id number] Age/Sex: 78 / F ADM Date: 03/13/24 Loc: [facility] Room: Type: [facility] Attending Dr: Eloina Hussein MD Copies to: Eloina Mullins MD Ordering Provider: Eloina Mullins MD Date of Service: 03/13/24 MR/MR lumbar spine wo con: M54.50 ([id number]) XR/XR pre/post mri xray: M54.50 MRI Lumbar [...] Jarred Randolph M.D.03/13/2024 3:58 PM Dictation Location: [place] [address] Transcribed By: [facility] 03/13/24 1558 Dictated By: Jarred Randolph DO 03/13/24 1551 Signed By: 03/13/24 1558 Normal [facility] Office Visiton 03-07-2024 Follow-up visit [id number] Joe Call 1945 F Date Provider Department Center 03/07/2024 RICA DEAN LOVE Bruno Family History Problem Relation Age of Onset Coronary artery disease Other Diabetes Other Polycystic kidney disease Other Family Status - Relation Status Age at Other Level of Service:[address]341 [place] OFFICE/OUTPATIENT ESTABLISHED MOD MDM 30 MIN Reason for Visit and Comments: Follow-up [133720] - 6 month [facility] Office Visiton 08-17-2023 Follow-up visit [id number] BassemJoe 1945 Date Provider Department Center 08/17/2023 [id number] [place] LOVE [facility] Family History Problem Relation Age of Onset Coronary artery disease Other Diabetes Other Polycystic kidney disease Other Family Status - Relation Status Age at Other Level of Service:[address]653 [place] OFFICE/OUTPATIENT ESTABLISHED MOD MDM 30-39 MIN [facility] 36on 07-25-2023 36 Pt informed [facility] 36on 07-24-2023 37 She does not need to drink 4 bottle of water. She needs to maintain a 2 L fluid restriction. This includes all fluid not just water. In regards to sleep, I told her she would need to discuss that with her PCP. Thanks. [facility] Office Visiton 07-23-2023 Follow-up visit [id number] Joe Call 1945 Provider Department Center 07/23/2023 [id number] [place] LOVE Bruno Family History Problem Relation Age of Onset Coronary artery disease Other Diabetes Other Polycystic kidney disease Other Family Status - Relation Status Age at Other Level of Service:27245 [place] OFFICE/OUTPATIENT ESTABLISHED MOD MDM 30-39 MIN [facility] Office Visiton 04-25-2023 Follow-up visit [id number] BassemJoe 1945 Date Provider Department Center 04/25/2023 RICA DEAN LOVE Bruno Family History Problem Relation Age of Onset Coronary artery disease Other Diabetes Other Polycystic kidney disease Other Family Status - Relation Status Age at Other Level of Service:[address]32 [place] OFFICE/OUTPATIENT ESTABLISHED MOD MDM 30-39 MIN Reason for Visit and Comments: Atrial Fibrillation [80] Congestive Heart Failure [127] Hypertension [660066] [facility] GI PANEL (PCR)on 03-06-2023 Adenovirus F 40/41 Not detected Normal NOT DETECTED [facility] Comment on above: Performed By: #### P OCGLUC #### [facility] [address] [place] [address] Dr. Kasia Nath Astrovirus Not detected Normal NOT DETECTED [facility] Comment on above: Performed By: #### P OCGLUC #### [facility] [address] [place] [address] Dr. Kasia Nath C. Diff toxin A/B Detected Critically abnormal NOT DETECTED [facility] Comment on above: Performed By: #### P OCGLUC #### [facility] [address] [place] [address] Dr. Kasia Nath Campylobacter Detected Critically abnormal NOT DETECTED [facility] Comment on above: Performed By: #### P OCGLUC #### [facility] [address] [place] [address] Dr. Kasia Nath Cryptosporidium Not detected Normal NOT DETECTED [facility] Comment on above: Performed By: #### P OCGLUC #### [facility] [address] [place] [address] Dr. Kasia Nath Cyclos. Cayetanensis Not detected Normal NOT DETECTED [facility] Comment on above: Performed By: #### P OCGLUC #### [facility] [address] [place] [address] Dr. Kasia Nath E. Coli O157 Not Applicable Normal Not Applicable [facility] Comment on above: Performed By: #### P OCGLUC #### [facility] [address] [place] [address] Dr. Kasia Nath E. histolytica Not detected Normal NOT DETECTED [facility] Comment on above: Performed By: #### P OCGLUC #### [facility] [address] [place] [address] Dr. Kasia Nath EAEC Not detected Normal NOT DETECTED [facility] Comment on above: Performed By: #### P OCGLUC #### [facility] [address] [place] [address] Dr. Kasia Nath EIEC Not detected Normal NOT DETECTED [facility] Comment on above: Performed By: #### P OCGLUC #### [facility] [address] [place] [address] Dr. Kasia Nath EPEC Not detected Normal NOT DETECTED [facility] Comment on above: Performed By: #### P OCGLUC #### [facility] [address] [place] [address] [address] Kasia Nath ETEC Not detected Normal NOT DETECTED [facility] Comment on above: Performed By: #### P OCGLUC #### [facility] [address] [place] [address] [address] Kasia Cramer. Lamblia Not detected Normal NOT DETECTED [facility] Comment on above: Performed By: #### P OCGLUC #### [facility] [address] [place] [address] [address] Kasia KHAN CONTROLS PASSED Normal [facility] Comment on above: Performed By: #### P OCGLUC #### [facility] [address] [place] [address] [address] Kasia FRAIRE HEADER GI PANEL BACTERIA Normal [facility] Comment on above: Performed By: #### P OCGLUC #### [facility] [address] [place] [address] [address] Kasia GE ECOLI GI PANEL DIARRHEAGENIC E.COLI / SHIGELLA Normal [facility] Comment on above: Performed By: #### P OCGLUC #### [facility] [address] [place] [address] [address] Kasia GE INFO SEE BELOW Normal [facility] Comment on above: Result Comment: EAEC - Enteroaggregative E. Coli EPEC- Enteropathogenic E. Coli ETEC- Enterotoxigenic E. Coli lt/st STEC- Shigella-like toxin-producing E. Coli stx1/stx2 EIEC- Shigella/Enteroinvasive E. Coli Performed By: #### P OCGLUC #### [facility] [address] [place] [address] [address] Kasia GE PARASITES GI PANEL PARASITES Normal [facility] Comment on above: Performed By: #### P OCGLUC #### [facility] [address] [place] [address] [address] Kasia GE VIRUS GI PANEL VIRUSES Normal [facility] Comment on above: Performed By: #### P OCGLUC #### [facility] [address] [place] [address] Dr. Kasia Nath Norovirus GI/GII Not detected Normal NOT DETECTED [facility] Comment on above: Performed By: #### P OCGLUC #### [facility] [address] [place] [address] Dr. Kasia Garland. Shigelloides Not detected Normal NOT DETECTED [facility] Comment on above: Performed By: #### P OCGLUC #### [facility] [address] [place] [address] Dr. Kasia Nath Rotavirus A Not detected Normal NOT DETECTED [facility] Comment on above: Performed By: #### P OCGLUC #### [facility] [address] [place] [address] Dr. Kasia Nath Salmonella Not detected Normal NOT DETECTED [facility] Comment on above: Performed By: #### P OCGLUC #### [facility] [address] [place] [address] Dr. Kasia Nath Sapovirus Not detected Normal NOT DETECTED [facility] Comment on above: Performed By: #### P OCGLUC #### [facility] [address] [place] [address] Dr. Kasia Nath STEC Not detected Normal NOT DETECTED [facility] Comment on above: Performed By: #### P OCGLUC #### [facility] [address] [place] [address] Dr. Kasia Nath Vibrio Not detected Normal NOT DETECTED [facility] Comment on above: Performed By: #### P OCGLUC #### [facility] [address] [place] [address] Dr. Kasia Nath Vibrio Cholera Not detected Normal NOT DETECTED [facility] Comment on above: Performed By: #### P OCGLUC #### [facility] [address] [place] [address] Dr. Kasia Nath Y. Enterocolitica Not detected Normal NOT DETECTED [facility] Comment on above: Performed By: #### P OCGLUC #### [facility] [address] [place] [address] Dr. Kasia Nath CBC AUTO DIFFon 02-14-2023 BASO # 0.0 103/ul Normal 0.0-0.1 [facility] Comment on above: Performed By: #### P OCGLUC #### [facility] [address] [address] [address] Kasia Nath Basophils/100 WBC (Bld) 0.5 % Normal 0.2-2.0 [facility] Comment on above: Performed By: #### P OCGLUC #### [facility] [address] [address] [address] Kasia Nath EO # 0.2 103/ul Normal 0.0-0.7 [facility] Comment on above: Performed By: #### P OCGLUC #### [facility] [address] [place] [address] Dr. Kasia Nath Eosinophils/100 WBC (Bld) 2.7 % Normal 0.9-7.0 [facility] Comment on above: Performed By: #### P OCGLUC #### [facility] [address] [place] [address] Dr. Kasia Nath Erythrocyte distribution width (RBC) [Ratio] 13.0 % Normal 11.0-15.0 [facility] Comment on above: Performed By: #### P OCGLUC #### [facility] [address] [place] [address] Dr. Kasia Nath Hematocrit (Bld) [Volume fraction] 35.9 % Critically low 36.0-48.0 [facility] Comment on above: Performed By: #### P OCGLUC #### [facility] [address] [place] [address] Dr. Kasia Nath Hemoglobin (Bld) [Mass/Vol] 12.0 g/dL Normal 12.0-16.0 [facility] Comment on above: Performed By: #### P OCGLUC #### [facility] [address] [place] [address] Dr. Kasia Nath IG # 0.02 10e3/ul Normal 0.00-0.03 [facility] Comment on above: Performed By: #### P OCGLUC #### [facility] [address] [place] [address] Dr. Kasia Nath IG % 0.3 % Normal 0.0-0.5 [facility] Comment on above: Performed By: #### P OCGLUC #### [facility] [address] [place] [address] Dr. Kasia Nath LYMPH # 1.8 103/ul Normal 1.2-3.8 [facility] Comment on above: Performed By: #### P OCGLUC #### [facility] [address] [place] [address] Dr. Kasia Nath Lymphocytes/100 WBC (Bld) 22.8 % Normal 20.5-60.0 [facility] Comment on above: Performed By: #### P OCGLUC #### [facility] [address] [place] [address] Dr. Kasia Nath MANUAL DIFF REQ NO Normal [facility] Comment on above: Performed By: #### P OCGLUC #### [facility] [address] [place] [address] Dr. Kasia Nath MCH (RBC) [Entitic mass] 29.4 pg Normal 26.7-34.0 [facility] Comment on above: Performed By: #### P OCGLUC #### [facility] [address] [place] [address] Dr. Kasia Nath MCHC (RBC) [Mass/Vol] 33.4 g/dL Normal 29.9-35.2 [facility] Comment on above: Performed By: #### P OCGLUC #### [facility] [address] [place] [address] Dr. Kasia Nath MCV (RBC) [Entitic vol] 88.0 fL Normal 81.0-99.0 [facility] Comment on above: Performed By: #### P OCGLUC #### [facility] [address] [place] [address] Dr. Kasia Nath MONO # 0.7 103/ul Normal 0.3-0.8 [facility] Comment on above: Performed By: #### P OCGLUC #### [facility] [address] [place] [address] Dr. Kasia Nath Monocytes/100 WBC (Bld) 9.3 % Normal 1.7-12.0 [facility] Comment on above: Performed By: #### P OCGLUC #### [facility] [address] [address] [address] Kasia Nath NEUT # 5.1 103/ul Normal 1.4-6.5 [facility] Comment on above: Performed By: #### P OCGLUC #### [facility] [address] [address] [address] Kasia Nath Neutrophils/100 WBC (Bld) 64.4 % Normal 43.0-75.0 [facility] Comment on above: Performed By: #### P OCGLUC #### [facility] [address] [address] [address] Kasia Nath Platelet mean volume (Bld) [Entitic vol] 11.7 fL Normal 9.5-13.5 [facility] Comment on above: Performed By: #### P OCGLUC #### [facility] [address] [place] [address] Dr. Kasia Nath PLT 175 103/ul Normal 150-450 [facility] Comment on above: Performed By: #### P OCGLUC #### [facility] [address] [address] [address] Kasia Nath RBC 4.08 106/ul Critically low 4.20-5.[address] [facility] Comment on above: Performed By: #### P OCGLUC #### [facility] [address] [address] [address] Kasia Nath WBC 7.9 103/ul Normal 4.0-11.0 [facility] Comment on above: Performed By: #### P OCGLUC #### [facility] [address] [address] [address] Kasia Nath LIPASEon 02-14-2023 Lipase [Catalytic activity/Vol] 51.0 U/L Critically low 73.0-393.0 [facility] Comment on above: Performed By: #### L IPA, CMP ####[facility] [address] [address]Dr. Kasia Nath PROF 14(COMP METB)on 023 Albumin [Mass/Vol] 2.8 g/dL Critically low 3.4-5.0 [facility] Comment on above: Performed By: #### L IPA, CMP ####[facility] [address] [address]Dr. Kasia Nath Albumin/Globulin [Mass ratio] 0.7 {ratio} Normal [facility] Comment on above: Performed By: #### L IPA, CMP ####[facility] [address] [address]Dr. Kasia Nath ALP [Catalytic activity/Vol] 90 U/L Normal 46-116 [facility] Comment on above: Performed By: #### L IPA, CMP ####[facility] [address] [address]Dr. Kasia Nath ALT [Catalytic activity/Vol] 15 U/L Normal 14-59 [facility] Comment on above: Performed By: #### L IPA, CMP ####[facility] [address] [address]Dr. Kasia Nath Anion gap [Moles/Vol] 15.6 mmol/L Normal [facility] Comment on above: Performed By: #### L IPA, CMP ####[facility] [address] [address]Dr. Kasia Nath AST [Catalytic activity/Vol] 9 U/L Critically low 15-37 [facility] Comment on above: Performed By: #### L IPA, CMP ####[facility] [address] [address]Dr. Kasia Nath Bilirubin [Mass/Vol] 0.4 mg/dL Normal 0.2-1.0 [facility] Comment on above: Performed By: #### L IPA, CMP ####[facility] [address] [address]Dr. Kasia Nath Calcium [Mass/Vol] 9.1 mg/dL Normal 8.5-10.1 [facility] Comment on above: Performed By: #### L IPA, CMP ####[facility] [address] [address]Dr. Kasia Nath Chloride [Moles/Vol] 104 mmol/L Normal 98-107 [facility] Comment on above: Performed By: #### L IPA, CMP ####[facility] [address] [address]Dr. Kasia Nath CO2 [Moles/Vol] 17.0 mmol/L Critically low 21.0-32.0 [facility] Comment on above: Performed By: #### L IPA, CMP ####[facility] [address] [place], [place] [address]Dr. Kasia Nath Creatinine [Mass/Vol] 1.78 mg/dL Critically high 0.55-1.02 [facility] Comment on above: Performed By: #### L IPA, CMP ####[facility] [address] [place], [place] [address]Dr. Kasia Portillo EGFR-AF FINNISH 34 mL/min/1.73m2 Critically low >=60 [facility] Comment on above: Performed By: #### L IPA, CMP ####[facility] [address] [place], [place] [address]Dr. Kasia Portillo EGFR-NON AF FINNISH 28 mL/min/1.73m2 Critically low >=60 [facility] Comment on above: Performed By: #### L IPA, CMP ####[facility] [address] [place], [place] [address]Dr. Kasia Portillo Globulin (S) [Mass/Vol] 4.3 g/dL Normal [facility] Comment on above: Performed By: #### L IPA, CMP ####[facility] [address] [place], [place] [address]Dr. Kasia Portillo Glucose [Mass/Vol] 248 mg/dL Critically high 74-106 T [facility] Comment on above: Performed By: #### L IPA, CMP ####[facility] [address] [place], [place] [address]Dr. Fartuncristy Nath Potassium [Moles/Vol] 4.6 mmol/L Normal 3.5-5.1 [facility] Comment on above: Performed By: #### L IPA, CMP ####[facility] [address] [place], [place] [address]Dr. Kasia Nath Protein [Mass/Vol] 7.1 g/dL Normal 6.4-8.2 [facility] Comment on above: Performed By: #### L IPA, CMP ####[facility] [address] [place], [place] [address]Dr. Kasia Nath Sodium [Moles/Vol] 132 mmol/L Critically low 136-145 [facility] Comment on above: Performed By: #### L IPA, CMP ####[facility] [address] [place], [place] [address]Dr. Kasia Nath Urea nitrogen [Mass/Vol] 78.0 mg/dL Critically high 7.0-18.0 [facility] Comment on above: Performed By: #### L IPA, CMP ####[facility] [address] [place], [place] [address]Dr. Kasia Nath Urea nitrogen/Creatinine [Mass ratio] 43.8 mg/mg Normal [facility] Comment on above: Performed By: #### L IPA, CMP ####[facility] [address] [place], [place] [address]Dr. Kasia Nath CBC AUTO DIFFon 02-13-2023 BASO # 0.0 103/ul Normal 0.0-0.1 [facility] Comment on above: Performed By: #### C BC ####[facility] [address] [place], [place] [address]Dr. Kasia Nath Basophils/100 WBC (Bld) 0.5 % Normal 0.2-2.0 [facility] Comment on above: Performed By: #### C BC ####[facility] [address] [place], [place] [address]Dr. Kasia Nath EO # 0.1 103/ul Normal 0.0-0.7 [facility] Comment on above: Performed By: #### C BC ####[facility] [address] [place], [place] [address]Dr. Kasia Nath Eosinophils/100 WBC (Bld) 1.0 % Normal 0.9-7.0 [facility] Comment on above: Performed By: #### C BC ####[facility] [address] [place], [place] [address]Dr. Kasia Nath Erythrocyte distribution width (RBC) [Ratio] 12.8 % Normal 11.0-15.0 [facility] Comment on above: Performed By: #### C BC ####[facility] [address] [place], [place] [address]Dr. Kasia Nath Hematocrit (Bld) [Volume fraction] 38.5 % Normal 36.0-48.0 [facility] Comment on above: Performed By: #### C BC ####[facility] [address] [place], [place] [address]Dr. Kasia Nath Hemoglobin (Bld) [Mass/Vol] 13.0 g/dL Normal 12.0-16.0 [facility] Comment on above: Performed By: #### C BC ####[facility] [address] [place], [place] [address]Dr. Kasia Nath IG # 0.02 10e3/ul Normal 0.00-0.03 [facility] Comment on above: Performed By: #### C BC ####[facility] [address] [place], [place] [address]Dr. Kasia Nath IG % 0.2 % Normal 0.0-0.5 [facility] Comment on above: Performed By: #### C BC ####[facility] [address] [place], [place] [address]Dr. Kasia Nath LYMPH # 0.9 103/ul Critically low 1.2-3.8 [facility] Comment on above: Performed By: #### C BC ####[facility] [address] [place], [place] [address]Dr. Kasia Nath Lymphocytes/100 WBC (Bld) 10.0 % Critically low 20.5-60.0 [facility] Comment on above: Performed By: #### C BC ####[facility] [address] [place], [place] [address]Dr. Fartuncristy Nath MANUAL DIFF REQ NO Normal [facility] Comment on above: Performed By: #### C BC ####[facility] [address] [address]Dr. Kasia Portillo MCH (RBC) [Entitic mass] 29.5 pg Normal 26.7-34.0 [facility] Comment on above: Performed By: #### C BC ####[facility] [address] [place], [place] [address]Dr. Kasia Portillo MCHC (RBC) [Mass/Vol] 33.8 g/dL Normal 29.9-35.2 [facility] Comment on above: Performed By: #### C BC ####[facility] [address] [place], [place] [address]Dr. Fartuncristy Nath MCV (RBC) [Entitic vol] 87.5 fL Normal 81.0-99.0 [facility] Comment on above: Performed By: #### C BC ####[facility] [address] [place], [place] [address]Dr. Kasia Nath MONO # 0.5 103/ul Normal 0.3-0.8 [facility] Comment on above: Performed By: #### C BC ####[facility] [address] [place], [place] [address]Dr. Kasia Nath Monocytes/100 WBC (Bld) 5.7 % Normal 1.7-12.0 [facility] Comment on above: Performed By: #### C BC ####[facility] [address] [place], [place] [address]DrDoreen Nath NEUT # 7.2 103/ul Critically high 1.4-6.[address] [facility] Comment on above: Performed By: #### C BC ####[facility] [address] [place], [place] [address]DrDoreen Nath Neutrophils/100 WBC (Bld) 82.6 % Critically high 43.0-75.0 [facility] Comment on above: Performed By: #### C BC ####[facility] [address] [place], [place] [address]Dr. Kasia Nath Platelet mean volume (Bld) [Entitic vol] 11.8 fL Normal 9.5-13.5 [facility] Comment on above: Performed By: #### C BC ####[facility] [address] [place], [place] [address]Sk. Kasia Nath PLT 187 103/ul Normal 150-450 [facility] Comment on above: Performed By: #### C BC ####[facility] [address] [place], [place] [address]Qy. Kasia Nath RBC 4.40 106/ul Normal 4.20-5.40 [facility] Comment on above: Performed By: #### C BC ####[facility] [address] [place], [place] [address]Mh. Kasia Nath WBC 8.8 103/ul Normal 4.0-11.0 [facility] Comment on above: Performed By: #### C BC ####[facility] [address] [place], [place] [address]. [address] N[address] CT ABD/PELVIS WO CONon 02-13 [...] JACOB MCCURDY Date: 2023-02-13 14:40 Normal [facility] CULTURE URINEon 02-13-2023 CULTURE URINE Culture Observations : LIGHT GROWTH OF MIXED GENITAL VON. NO POTENTIAL PATHOGENS SEEN. Normal [facility] Comment on above: Performed By: #### U RCX ####[facility] [address] [place], [place] [address]KnDr. Kasia Nath Covid-19 PCR ([facility])on SARS-CoV-2 (COVID-19) RNA FERN+probe Ql (Unsp spec) Not detected Normal NOT DETECTED [facility] Comment on above: Result Comment: When [...] for this test is supported by the Filter Operator of Health and Human Service's declaration that [...] used). Performed By: #### P OCGLUC #### [facility] [address] [place], [place] [address] Dr. Kasia Nath GI PANEL (PCR)on 02-13-2023 Adenovirus F 40/41 Not detected Normal NOT DETECTED [facility] Comment on above: Performed By: #### C BC #### [facility] [address] [place] [address] Dr. Kasia Nath Astrovirus Not detected Normal NOT DETECTED [facility] Comment on above: Performed By: #### C BC #### [facility] [address] [place] [address] Dr. Kasia Del Real. Diff toxin A/B Not detected Normal NOT DETECTED [facility] Comment on above: Performed By: #### C BC #### [facility] [address] [place] [address] Dr. Kasia Nath Campylobacter Not detected Normal NOT DETECTED [facility] Comment on above: Performed By: #### C BC #### [facility] [address] [place] [address] Dr. Kasia Nath Cryptosporidium Not detected Normal NOT DETECTED [facility] Comment on above: Performed By: #### C BC #### [facility] [address] [place] [address] Dr. Kasia Nath Cyclos. Cayetanensis Not detected Normal NOT DETECTED [facility] Comment on above: Performed By: #### C BC #### [facility] [address] [place] [address] Dr. Kasia Nath E. Coli O157 Not Applicable Normal Not Applicable [facility] Comment on above: Performed By: #### C BC #### [facility] [address] [place] [address] Dr. Kasia Nath E. histolytica Not detected Normal NOT DETECTED [facility] Comment on above: Performed By: #### C BC #### [facility] [address] [place] [address] Dr. Kasia Nath EAEC Not detected Normal NOT DETECTED [facility] Comment on above: Performed By: #### C BC #### [facility] [address] [place] [address] Dr. Kasia Nath EIEC Not detected Normal NOT DETECTED [facility] Comment on above: Performed By: #### C BC #### [facility] [address] [place] [address] Dr. Kasia Nath EPEC Not detected Normal NOT DETECTED [facility] Comment on above: Performed By: #### C BC #### [facility] [address] [address] [address] Kasia Nath ETEC Not detected Normal NOT DETECTED [facility] Comment on above: Performed By: #### C BC #### [facility] [address] [address] [address] Kasia Nath G. Lamblia Not detected Normal NOT DETECTED [facility] Comment on above: Performed By: #### C BC #### [facility] [address] [address] [address] Kasia KHAN CONTROLS PASSED Normal [facility] Comment on above: Performed By: #### C BC #### [facility] [address] [address] [address] Kasia FRAIRE HEADER GI PANEL BACTERIA Normal T [facility] Comment on above: Performed By: #### C BC #### [facility] [address] [address] [address] Kasia GE ECOLI GI PANEL DIARRHEAGENIC E.COLI / SHIGELLA Normal [facility] Comment on above: Performed By: #### C BC #### [facility] [address] [place] [address] Dr. Kasia GE INFO SEE BELOW [place] Comment on above: Result Comment: EAEC - Enteroaggregative E. Coli EPEC- Enteropathogenic E. Coli ETEC- Enterotoxigenic E. Coli lt/st STEC- Shigella-like toxin-producing E. Coli stx1/stx2 EIEC- Shigella/Enteroinvasive E. Coli Performed By: #### C BC #### [facility] [address] [place] [address] Dr. Kasia GE PARASITES GI PANEL PARASITES Normal [facility] Comment on above: Performed By: #### C BC #### [facility] [address] [address] [address] Kasia GE VIRUS GI PANEL VIRUSES Normal [facility] Comment on above: Performed By: #### C BC #### [facility] [address] [place] [address] Dr. Kasia Nath Norovirus GI/GII Not detected Normal NOT DETECTED [facility] Comment on above: Performed By: #### C BC #### [facility] [address] [place] [address] Dr. Kasia Garland. Shigelloides Not detected Normal NOT DETECTED [facility] Comment on above: Performed By: #### C BC #### [facility] [address] [place] [address] Dr. Kasia Nath Rotavirus A Not detected Normal NOT DETECTED [facility] Comment on above: Performed By: #### C BC #### [facility] [address] [place] [address] Dr. Kasia Nath Salmonella Not detected Normal NOT DETECTED [facility] Comment on above: Performed By: #### C BC #### [facility] [address] [place] [address] Dr. Kasia Nath Sapovirus Not detected Normal NOT DETECTED [facility] Comment on above: Performed By: #### C BC #### [facility] [address] [place] [address] Dr. Kasia Nath STEC Not detected Normal NOT DETECTED [facility] Comment on above: Performed By: #### C BC #### [facility] [address] [place] [address] Dr. Kasia Nath Vibrio Not detected Normal NOT DETECTED [facility] Comment on above: Performed By: #### C BC #### [facility] [address] [place] [address] Dr. Kasia Nath Vibrio Cholera Not detected Normal NOT DETECTED [facility] Comment on above: Performed By: #### C BC #### [facility] [address] [place] [address] Dr. Kasia Nath Y. Enterocolitica Not detected Normal NOT DETECTED [facility] Comment on above: Performed By: #### C BC #### [facility] [address] [place] [address] Dr. Kasia Nath LACTATE/LACTIC ACIDon 2022 Lactate [Moles/Vol] 1.7 mmol/L Normal 0.4-2.0 [facility] Comment on above: Performed By: #### L ACT ####[facility] [address] [address]Dr. Kasia Nath LIPASEon 02-13-2023 Lipase [Catalytic activity/Vol] 82.0 U/L Normal 73.0-393.0 [facility] Comment on above: Performed By: #### L IPA, CMP #### [facility] [address] [address] [address] Kasia Nath POINT OF CARE GLUCOSEon Glucose [Mass/Vol] 229 mg/dL Critically high 74-106 [facility] Comment on above: Performed By: #### P OCGLUC #### [facility] [address] [place] [address] Dr. Kasia Nath Glucose [Mass/Vol] 474 mg/dL Critically high 74-106 [facility] Comment on above: Performed By: #### P OCGLUC #### [facility] [address] [place] [address] Dr. Kasia Nath PROF 14(COMP METB)on 023 Albumin [Mass/Vol] 3.4 g/dL Normal 3.4-5.0 [facility] Comment on above: Performed By: #### L IPA, CMP #### [facility] [address] [place] [address] Dr. Kasia Nath Albumin/Globulin [Mass ratio] 0.7 {ratio} Normal [facility] Comment on above: Performed By: #### L IPA, CMP #### [facility] [address] [place] [address] Dr. Kasia Nath ALP [Catalytic activity/Vol] 106 U/L Normal 46-116 [facility] Comment on above: Performed By: #### L IPA, CMP #### [facility] [address] [place] [address] Dr. Kasia Nath ALT [Catalytic activity/Vol] 21 U/L Normal 14-59 [facility] Comment on above: Performed By: #### L IPA, CMP #### [facility] [address] [address] [address] Kasia Nath Anion gap [Moles/Vol] 17.7 mmol/L Normal [facility] Comment on above: Performed By: #### L IPA, CMP #### [facility] [address] [address] [address] Kasia Naht AST [Catalytic activity/Vol] 11 U/L Critically low 15-37 [facility] Comment on above: Performed By: #### L IPA, CMP #### [facility] [address] [address] [address] Kasia Nath Bilirubin [Mass/Vol] 0.5 mg/dL Normal 0.2-1.0 [facility] Comment on above: Performed By: #### L IPA, CMP #### [facility] [address] [place] [address] Dr. Kasia Nath Calcium [Mass/Vol] 9.6 mg/dL Normal 8.5-10.1 [facility] Comment on above: Performed By: #### L IPA, CMP #### [facility] [address] [address] [address] Kasia Nath Chloride [Moles/Vol] 99 mmol/L Normal 98-107 [facility] Comment on above: Performed By: #### L IPA, CMP #### [facility] [address] [address] [address] Kasia Nath CO2 [Moles/Vol] 20.6 mmol/L Critically low 21.0-32.0 [facility] Comment on above: Performed By: #### L IPA, CMP #### [facility] [address] [address] [address] Kasia Nath Creatinine [Mass/Vol] 2.14 mg/dL Critically high 0.55-1.02 [facility] Comment on above: Performed By: #### L IPA, CMP #### [facility] [address] [address] [address] Kasia Nath EGFR-AF FINNISH 27 mL/min/1.73m2 Critically low >=60 [facility] Comment on above: Performed By: #### L IPA, CMP #### [facility] [address] [address] [address] Kasia Nath EGFR-NON AF FINNISH 22 mL/min/1.73m2 Critically low >=60 [facility] Comment on above: Performed By: #### L IPA, CMP #### [facility] [address] [address] [address] Kasia Nath Globulin (S) [Mass/Vol] 4.8 g/dL Normal [facility] Comment on above: Performed By: #### L IPA, CMP #### [facility] [address] [address] [address] Kasia Nath Glucose [Mass/Vol] 498 mg/dL Critically high 74-106 T [facility] Comment on above: Performed By: #### L IPA, CMP #### [facility] [address] [address] [address] Kasia Nath Potassium [Moles/Vol] 5.3 mmol/L Critically high 3.5-5.1 [facility] Comment on above: Performed By: #### L IPA, CMP #### [facility] [address] [address] [address] Kasia Nath Protein [Mass/Vol] 8.2 g/dL Normal 6.4-8.2 [facility] Comment on above: Performed By: #### L IPA, CMP #### [facility] [address] [address] [address] Kasia Nath Sodium [Moles/Vol] 132 mmol/L Critically low 136-145 Th [facility] Comment on above: Performed By: #### L IPA, CMP #### [facility] [address] [address] [address] Kasia Nath Urea nitrogen [Mass/Vol] 86.0 mg/dL Critically high 7.0-18.0 [facility] Comment on above: Performed By: #### L IPA, CMP #### [facility] [address] [address] [address] Kasia Nath Urea nitrogen/Creatinine [Mass ratio] 40.2 mg/mg Normal [facility] Comment on above: Performed By: #### L IPA, CMP #### [facility] [address] [address] [address] Kasia Nath UA RANDOM W/MICROSCOPICon BACTERIA TRACE Abnormal NONE SEEN [facility] Comment on above: Performed By: #### U AMIC ####[facility] [address] [address]Dr. Kasia Nath Bilirubin Ql (U) Negative Normal NEGATIVE [facility] Comment on above: Performed By: #### U AMIC ####[facility] [address] [address]Dr. Kasia Nath CAST SEEN Abnormal NONE SEEN [facility] Comment on above: Performed By: #### U AMIC ####[facility] [address] [address]Dr. Kasia Nath Clarity (U) CLEAR Normal CLEAR [facility] Comment on above: Performed By: #### U AMIC ####[facility] [address] [address]Dr. Kasia Nath Color (U) LT. YELLOW Normal YELLOW [facility] Comment on above: Performed By: #### U AMIC ####[facility] [address] [address]Dr. Kasia Nath Crystals LM Nom (Urine sed) NONE SEEN Normal NONE SEEN [facility] Comment on above: Performed By: #### U AMIC ####[facility] [address] [address]Dr. Kasia Nath Epithelial cells LM Ql (Urine sed) FEW Abnormal NONE SEEN /RARE [facility] Comment on above: Performed By: #### U AMIC ####[facility] [address] [address]Dr. Kasia Nath Glucose Ql (U) >1000 Abnormal NEGATIVE [facility] Comment on above: Performed By: #### U AMIC ####[facility] [address] [address]Dr. Kasia Nath Hemoglobin Ql (U) Negative Normal NEGATIVE The [facility] Comment on above: Performed By: #### U AMIC ####[facility] [address] [address]Dr. Kasia Nath HYALINE CAST RARE Normal [facility] Comment on above: Performed By: #### U AMIC ####[facility] [address] [address]Dr. Fartuncristy Nath Ketones Ql (U) Negative Normal NEGATIVE [facility] Comment on above: Performed By: #### U AMIC ####[facility] [address] [address]Dr. Kasia Nath LEUKOCYTES Negative Normal NEGATIVE [facility] Comment on above: Performed By: #### U AMIC ####[facility] [address] [address]Dr. Kasia Nath MUCOUS NONE SEEN Normal NONE SEEN [facility] Comment on above: Performed By: #### U AMIC ####[facility] [address] [address]Dr. Kasia Nath Nitrite Ql (U) Negative Normal NEGATIVE [facility] Comment on above: Performed By: #### U AMIC ####[facility] [address] [place], [place] [address]Dr. Kasia Nath pH (U) 5.5 [pH] Normal 5-9 [facility] Comment on above: Performed By: #### U AMIC ####[facility] [address] [address]Dr. Kasia Nath RBC 0-2 Normal 0-2 [facility] Comment on above: Performed By: #### U AMIC ####[facility] [address] [address]Dr. Kasia Nath SPEC GRAVITY 1.015 Normal 1.005-<=1.[address] [facility] Comment on above: Performed By: #### U AMIC ####[facility] [address] [address]Dr. Kasia Nath UA PROTEIN TRACE Normal NEGATIVE/ TRACE [facility] Comment on above: Performed By: #### U AMIC ####[facility] [address] [address]Dr. Kasia Nath Urobilinogen Qn (U) 0.2 {Meka'U}/dL Normal 0.2 - 1. 0 [facility] Comment on above: Performed By: #### U AMIC ####[facility] [address] [place], [place] [address]Dr. Kasia Nath WBC 0-2 Abnormal NONE SEEN [facility] Comment on above: Performed By: #### U AMIC ####[facility] [address] [place], [place] [address]Dr. Kasia Nath BNPon 01-16-2023 Natriuretic peptide B (Bld) [Mass/Vol] 1675.0 pg/mL Normal <=1,800.0 [facility] Comment on above: Performed By: #### B NETWORK SUPPORT SPECIALIST, CMP ####[facility] [address] [place], [place] [address]Dr. Kasia Nath PROF 14(COMP METB)on 023 Albumin [Mass/Vol] 3.4 g/dL Normal 3.4-5.0 [facility] Comment on above: Performed By: #### B NETWORK SUPPORT SPECIALIST, CMP ####[facility] [address] [place], [place] [address]Dr. Kasia Naht Albumin/Globulin [Mass ratio] 0.8 {ratio} Normal [facility] Comment on above: Performed By: #### B NETWORK SUPPORT SPECIALIST, CMP ####[facility] [address] [place], [place] [address]Dr. Kasia Nath ALP [Catalytic activity/Vol] 99 U/L Normal 46-116 [facility] Comment on above: Performed By: #### B NETWORK SUPPORT SPECIALIST, CMP ####[facility] F[address]ae[address] [place], [place] [address]Dr. Kasia Nath ALT [Catalytic activity/Vol] 18 U/L Normal 14-59 [facility] Comment on above: Performed By: #### B NETWORK SUPPORT SPECIALIST, CMP ####[facility] Psrsrluqnb[address] [place], [place] [address]Dr. Kasia Nath Anion gap [Moles/Vol] 10.6 mmol/L Normal [facility] Comment on above: Performed By: #### B NETWORK SUPPORT SPECIALIST, CMP ####[facility] [address] [place], [place] [address]Dr. Kasia Nath AST [Catalytic activity/Vol] 15 U/L Normal 15-37 [facility] Comment on above: Performed By: #### B NETWORK SUPPORT SPECIALIST, CMP ####[facility] [address] [place], [place] [address]Dr. Kasia Nath Bilirubin [Mass/Vol] 0.5 mg/dL Normal 0.2-1.0 [facility] Comment on above: Performed By: #### B NETWORK SUPPORT SPECIALIST, CMP ####[facility] [address] [place], [place] [address]Dr. Kasia Nath Calcium [Mass/Vol] 9.1 mg/dL Normal 8.5-10.1 [facility] Comment on above: Performed By: #### B NETWORK SUPPORT SPECIALIST, CMP ####[facility] [address] [place], [place] [address]Dr. Kasia Nath Chloride [Moles/Vol] 98 mmol/L Normal 98-107 [facility] Comment on above: Performed By: #### B NETWORK SUPPORT SPECIALIST, CMP ####[facility] [address] [place], [place] [address]Dr. Kasia Nath CO2 [Moles/Vol] 30.4 mmol/L Normal 21.0-32.0 [facility] Comment on above: Performed By: #### B NETWORK SUPPORT SPECIALIST, CMP ####[facility] F[address] [place], [place] [address]Dr. Kasia Nath Creatinine [Mass/Vol] 1.44 mg/dL Critically high 0.55-1.02 [facility] Comment on above: Performed By: #### B NETWORK SUPPORT SPECIALIST, CMP ####[facility] [address] [place], [place] [address]Dr. Kasia Portillo EGFR-AF FINNISH 43 mL/min/1.73m2 Critically low >=60 [facility] Comment on above: Performed By: #### B NETWORK SUPPORT SPECIALIST, CMP ####[facility] Gjti[address] [place], [place] [address]Dr. Yicristy Nath EGFR-NON AF FINNISH 35 mL/min/1.73m2 Critically low >=60 [facility] Comment on above: Performed By: #### B NETWORK SUPPORT SPECIALIST, CMP ####[facility] [address]fn[address] [place], [place] [address]Dr. Kasia Nath Globulin (S) [Mass/Vol] 4.4 g/dL Normal [facility] Comment on above: Performed By: #### B NETWORK SUPPORT SPECIALIST, CMP ####[facility] [address] [place], [place] [address]Dr. Kasia Nath Glucose [Mass/Vol] 401 mg/dL Critically high 74-106 T [facility] Comment on above: Performed By: #### B NETWORK SUPPORT SPECIALIST, CMP ####[facility] [address] [place], [place] [address]Dr. Kasia Nath Potassium [Moles/Vol] 5.0 mmol/L Normal 3.5-5.1 [facility] Comment on above: Performed By: #### B NETWORK SUPPORT SPECIALIST, CMP ####[facility] X[address] [place], [place] [address]Dr. Kasia Nath Protein [Mass/Vol] 7.8 g/dL Normal 6.4-8.2 [facility] Comment on above: Performed By: #### B NETWORK SUPPORT SPECIALIST, CMP ####[facility] [address] [place], [place] [address]Dr. Kasia Nath Sodium [Moles/Vol] 134 mmol/L Critically low 136-145 Th [facility] Comment on above: Performed By: #### B NETWORK SUPPORT SPECIALIST, CMP ####[facility] [address] [place], [place] [address]Dr. Kasia Nath Urea nitrogen [Mass/Vol] 46.0 mg/dL Critically high 7.0-18.0 [facility] Comment on above: Performed By: #### B NETWORK SUPPORT SPECIALIST, CMP ####[facility] [address] [place], [place] [address]Dr. Kasia Nath Urea nitrogen/Creatinine [Mass ratio] 31.9 mg/mg Normal [facility] Comment on above: Performed By: #### B NETWORK SUPPORT SPECIALIST, CMP ####[facility] [address] [place] [id number] Kasia Nath BNPon 01-05-2023 Natriuretic peptide B (Bld) [Mass/Vol] 1389.0 pg/mL Normal <=1,800.0 [facility] Comment on above: Performed By: #### B NETWORK SUPPORT SPECIALIST, CMADM, CMP ####[facility] [address] [address]Dr. Kasia Nath CARDIAC EMERY ADMITon 023 CK [Catalytic activity/Vol] 138 U/L Normal 26-192 [facility] Comment on above: Performed By: #### B NETWORK SUPPORT SPECIALIST, CMADM, CMP ####[facility] [address] [address]Dr. Kasia Nath CK.MB [Mass/Vol] 2.22 ng/mL Normal <=3.60 [facility] Comment on above: Performed By: #### B NETWORK SUPPORT SPECIALIST, CMADM, CMP ####[facility] [address] [address]Dr. Kasia Nath HSTROP 15.9 pg/mL Normal 4.0-51.3 [facility] Comment on above: Result Comment: CUT- OFF POINTS HAVE BEEN ESTABLISHED BASED ON THE FOURTH UNIVERSAL DEFINITIONS OF MYOCARDIAL INFARCTION. THE UPPER REFERENCE LIMIT (URL) OF TROPONIN, DEFINED THE 99TH PERCENTILE OF cTnI DISTRIBUTION IN A REFERENCE POPULATION, HAS BEEN CONFIRMED THE DECISION THRESHOLD FOR [place] DIAGNOSIS. Performed By: #### B NETWORK SUPPORT SPECIALIST, CMADM, CMP ####[facility] [address] [address]DrDoreen Nath GRETTA 178 ng/mL Critically high 9-[address] [facility] Comment on above: Performed By: #### B NETWORK SUPPORT SPECIALIST, CMADM, CMP ####[facility] [address] [address]DrDoreen Nath CBC AUTO DIFFon 01-05-2023 BASO # 0.1 103/ul Normal 0.0-0.1 [facility] Comment on above: Performed By: #### C BC #### [facility] [address] [address] [address] Kasia Nath Basophils/100 WBC (Bld) 0.7 % Normal 0.2-2.0 [facility] Comment on above: Performed By: #### C BC #### [facility] [address] [place] [address] Dr. Kasia Nath EO # 0.3 103/ul Normal 0.0-0.7 [facility] Comment on above: Performed By: #### C BC #### [facility] [address] [place] [address] Dr. Kasia Nath Eosinophils/100 WBC (Bld) 2.9 % Normal 0.9-7.0 [facility] Comment on above: Performed By: #### C BC #### [facility] [address] [place] [address] Dr. Kasia Nath Erythrocyte distribution width (RBC) [Ratio] 13.5 % Normal 11.0-15.0 [facility] Comment on above: Performed By: #### C BC #### [facility] [address] [place] [address] Dr. Kasia Nath Hematocrit (Bld) [Volume fraction] 39.8 % Normal 36.0-48.0 [facility] Comment on above: Performed By: #### C BC #### [facility] [address] [place] [address] Dr. Kasia Naht Hemoglobin (Bld) [Mass/Vol] 13.5 g/dL Normal 12.0-16.0 [facility] Comment on above: Performed By: #### C BC #### [facility] [address] [place] [address] Dr. Kasia Nath IG # 0.02 10e3/ul Normal 0.00-0.03 [facility] Comment on above: Performed By: #### C BC #### [facility] [address] [place] [address] Dr. Kasia Nath IG % 0.2 % Normal 0.0-0.5 [facility] Comment on above: Performed By: #### C BC #### [facility] [address] [place] [address] Dr. Kasia Nath LYMPH # 1.9 103/ul Normal 1.2-3.8 [facility] Comment on above: Performed By: #### C BC #### [facility] [address] [place] [address] Dr. Kasia Nath Lymphocytes/100 WBC (Bld) 22.0 % Normal 20.5-60.0 [facility] Comment on above: Performed By: #### C BC #### [facility] [address] [place] [address] Dr. Kasia Nath MANUAL DIFF REQ NO Normal [facility] Comment on above: Performed By: #### C BC #### [facility] [address] [place] [address] Dr. Kasia Nath MCH (RBC) [Entitic mass] 29.8 pg Normal 26.7-34.0 [facility] Comment on above: Performed By: #### C BC #### [facility] [address] [place] [address] Dr. Kasia Nath MCHC (RBC) [Mass/Vol] 33.9 g/dL Normal 29.9-35.2 [facility] Comment on above: Performed By: #### C BC #### [facility] [address] [place] [address] Dr. Kasia Nath MCV (RBC) [Entitic vol] 87.9 fL Normal 81.0-99.0 [facility] Comment on above: Performed By: #### C BC #### [facility] [address] [place] [address] Dr. Kasia Nath MONO # 0.8 103/ul Normal 0.3-0.8 [facility] Comment on above: Performed By: #### C BC #### [facility] [address] [place] [address] Dr. Kasia Nath Monocytes/100 WBC (Bld) 8.8 % Normal 1.7-12.0 [facility] Comment on above: Performed By: #### C BC #### [facility] [address] [place] [address] Dr. Kasia Nath NEUT # 5.6 103/ul Normal 1.4-6.5 [facility] Comment on above: Performed By: #### C BC #### [facility] [address] [address] [address] Kasia Nath Neutrophils/100 WBC (Bld) 65.4 % Normal 43.0-75.0 [facility] Comment on above: Performed By: #### C BC #### [facility] [address] [address] [address] Kasia Nath Platelet mean volume (Bld) [Entitic vol] 10.6 fL Normal 9.5-13.5 [facility] Comment on above: Performed By: #### C BC #### [facility] [address] [address] [address] Kasia Nath PLT 222 103/ul Normal 150-450 [facility] Comment on above: Performed By: #### C BC #### [facility] [address] [place] [address] Dr. Kasia Nath RBC 4.53 106/ul Normal 4.20-5.40 [facility] Comment on above: Performed By: #### C BC #### [facility] [address] [place] [address] Dr. Kasia Nath WBC 8.6 103/ul Normal 4.0-11.0 [facility] Comment on above: Performed By: #### C BC #### [facility] [address] [place] [address] Dr. Kasia Nath PROF 14(COMP METB)on 023 Albumin [Mass/Vol] 3.3 g/dL Critically low 3.4-5.0 [facility] Comment on above: Performed By: #### B NETWORK SUPPORT SPECIALIST, CMADM, CMP #### [facility] [address] [place] [address] Dr. Kasia Nath Albumin/Globulin [Mass ratio] 0.7 {ratio} Normal [facility] Comment on above: Performed By: #### B NETWORK SUPPORT SPECIALIST, CMADM, CMP #### [facility] [address] [place] [address] Dr. Kasia Nath ALP [Catalytic activity/Vol] 106 U/L Normal 46-116 [facility] Comment on above: Performed By: #### B NETWORK SUPPORT SPECIALIST, CMADM, CMP #### [facility] [address] [address] [address] Kasia Nath ALT [Catalytic activity/Vol] 22 U/L Normal 14-59 [facility] Comment on above: Performed By: #### B NETWORK SUPPORT SPECIALIST, CMADM, CMP #### [facility] [address] [address] [address] Kasia Nath Anion gap [Moles/Vol] 12.0 mmol/L Normal [facility] Comment on above: Performed By: #### B NETWORK SUPPORT SPECIALIST, CMADM, CMP #### [facility] [address] [address] [address] Kasia Nath AST [Catalytic activity/Vol] 23 U/L Normal 15-37 [facility] Comment on above: Performed By: #### B NETWORK SUPPORT SPECIALIST, CMADM, CMP #### [facility] [address] [place] [address] Dr. Kasia Nath Bilirubin [Mass/Vol] 0.7 mg/dL Normal 0.2-1.0 [facility] Comment on above: Performed By: #### B NETWORK SUPPORT SPECIALIST, CMADM, CMP #### [facility] [address] [place] [address] Dr. Kasia Nath Calcium [Mass/Vol] 8.8 mg/dL Normal 8.5-10.1 [facility] Comment on above: Performed By: #### B NETWORK SUPPORT SPECIALIST, CMADM, CMP #### [facility] [address] [place] [address] Dr. Kasia Nath Chloride [Moles/Vol] 98 mmol/L Normal 98-107 [facility] Comment on above: Performed By: #### B NETWORK SUPPORT SPECIALIST, CMADM, CMP #### [facility] [address] [place] [address] Dr. Kasia Nath CO2 [Moles/Vol] 30.2 mmol/L Normal 21.0-32.0 [facility] Comment on above: Performed By: #### B NETWORK SUPPORT SPECIALIST, CMADM, CMP #### [facility] [address] [place] [address] Dr. Kasia Nath Creatinine [Mass/Vol] 1.19 mg/dL Critically high 0.55-1.02 [facility] Comment on above: Performed By: #### B NETWORK SUPPORT SPECIALIST, LEONORA, CMP #### [facility] [address] [address] [address] Kasia Nath EGFR-AF FINNISH 53 mL/min/1.73m2 Critically low >=60 [facility] Comment on above: Performed By: #### B NETWORK SUPPORT SPECIALIST, MACDM, CMP #### [facility] [address] [address] [address] Kasia Nath EGFR-NON AF FINNISH 44 mL/min/1.73m2 Critically low >=60 [facility] Comment on above: Performed By: #### B NETWORK SUPPORT SPECIALIST, LEONORA, CMP #### [facility] [address] [place] [address] Dr. Kasia Nath Globulin (S) [Mass/Vol] 4.7 g/dL Normal [facility] Comment on above: Performed By: #### B NETWORK SUPPORT SPECIALIST, MACDM, CMP #### [facility] [address] [address] [address] Kasia Nath Glucose [Mass/Vol] 124 mg/dL Critically high 74-106 [facility] Comment on above: Performed By: #### B NETWORK SUPPORT SPECIALISTLEONORA, CMP #### [facility] [address] [place] [address] Dr. Kasia Nath Potassium [Moles/Vol] 3.2 mmol/L Critically low 3.5-5.1 [facility] Comment on above: Performed By: #### B NETWORK SUPPORT SPECIALIST, MACDM, CMP #### [facility] [address] [address] [address] Kasia Nath Protein [Mass/Vol] 8.0 g/dL Normal 6.4-8.2 [facility] Comment on above: Performed By: #### B NETWORK SUPPORT SPECIALIST, MACDM, CMP #### [facility] [address] [address] [address] Kasia Nath Sodium [Moles/Vol] 137 mmol/L Normal 136-145 [facility] Comment on above: Performed By: #### B NETWORK SUPPORT SPECIALIST, CMADM, CMP #### [facility] [address] [place], [place] [address] Dr. Kasia Nath Urea nitrogen [Mass/Vol] 29.0 mg/dL Critically high 7.0-18.0 [facility] Comment on above: Performed By: #### B NETWORK SUPPORT SPECIALIST, CMADM, CMP #### [facility] [address] [place], [place] [address] Dr. Kasia Nath Urea nitrogen/Creatinine [Mass ratio] 24.4 mg/mg Normal [facility] Comment on above: Performed By: #### B NETWORK SUPPORT SPECIALIST, CMADM, CMP #### [facility] [address] [place], [place] [address] Dr. Kasia Nath TROPONIN, HIGH SENSITIVITYon 01-05-2023 HSTROP 18.4 pg/mL Normal 4.0-51.3 [facility] Comment on above: Result Comment: CUT- OFF POINTS HAVE BEEN ESTABLISHED BASED ON THE FOURTH UNIVERSAL DEFINITIONS OF MYOCARDIAL INFARCTION. THE UPPER REFERENCE LIMIT (URL) OF TROPONIN, DEFINED THE 99TH PERCENTILE OF cTnI DISTRIBUTION IN A REFERENCE POPULATION, HAS BEEN CONFIRMED THE DECISION THRESHOLD FOR [place] DIAGNOSIS. Performed By: #### H STROPN ####[facility] [address] [place], [place] [address]CkDr. Kasia Nath XR CHEST 1 Von 01-05-2023 [...] BIN ROJAS Date: 2023-01-05 04:39 Normal [facility] BNPon 01-02-2023 Natriuretic peptide B (Bld) [Mass/Vol] 2583.0 pg/mL Critically high <=1,800.0 [facility] Comment on above: Performed By: #### B NETWORK SUPPORT SPECIALIST, CMP ####[facility] [address] [address]Dr. Kasia Nath CBC AUTO DIFFon 01-02-2023 BASO # 0.1 103/ul Normal 0.0-0.1 [facility] Comment on above: Performed By: #### P OCGLUC #### [facility] [address] [address] [address] Kasia Nath Basophils/100 WBC (Bld) 0.9 % Normal 0.2-2.0 [facility] Comment on above: Performed By: #### P OCGLUC #### [facility] [address] [place] [address] Dr. Kasia Nath EO # 0.2 103/ul Normal 0.0-0.7 [facility] Comment on above: Performed By: #### P OCGLUC #### [facility] [address] [address] [address] Kasia Nath Eosinophils/100 WBC (Bld) 2.3 % Normal 0.9-7.0 [facility] Comment on above: Performed By: #### P OCGLUC #### [facility] [address] [address] [address] Kasia Nath Erythrocyte distribution width (RBC) [Ratio] 13.8 % Normal 11.0-15.0 [facility] Comment on above: Performed By: #### P OCGLUC #### [facility] [address] [address] [address] Kasia Nath Hematocrit (Bld) [Volume fraction] 35.5 % Critically low 36.0-48.0 [facility] Comment on above: Performed By: #### P OCGLUC #### [facility] [address] [place] [address] Dr. Kasia Nath Hemoglobin (Bld) [Mass/Vol] 11.6 g/dL Critically low 12.0-16.0 [facility] Comment on above: Performed By: #### P OCGLUC #### [facility] [address] [address] [address] Kasia Nath IG # 0.02 10e3/ul Normal 0.00-0.03 [facility] Comment on above: Performed By: #### P OCGLUC #### [facility] [address] [address] [address] Kasia Nath IG % 0.3 % Normal 0.0-0.5 [facility] Comment on above: Performed By: #### P OCGLUC #### [facility] [address] [address] [address] Kasia Nath LYMPH # 2.0 103/ul Normal 1.2-3.8 [facility] Comment on above: Performed By: #### P OCGLUC #### [facility] [address] [place] [address] Dr. Kasia Nath Lymphocytes/100 WBC (Bld) 24.8 % Normal 20.5-60.0 [facility] Comment on above: Performed By: #### P OCGLUC #### [facility] [address] [address] [address] Kasia Nath MANUAL DIFF REQ NO Normal [facility] Comment on above: Performed By: #### P OCGLUC #### [facility] [address] [address] [address] Kasia Nath MCH (RBC) [Entitic mass] 28.7 pg Normal 26.7-34.0 [facility] Comment on above: Performed By: #### P OCGLUC #### [facility] [address] [address] [address] Kasia Nath MCHC (RBC) [Mass/Vol] 32.7 g/dL Normal 29.9-35.2 [facility] Comment on above: Performed By: #### P OCGLUC #### [facility] [address] [address] [address] Kasia Nath MCV (RBC) [Entitic vol] 87.9 fL Normal 81.0-99.0 [facility] Comment on above: Performed By: #### P OCGLUC #### [facility] [address] [address] [address] Kasia Nath MONO # 0.8 103/ul Normal 0.3-0.8 [facility] Comment on above: Performed By: #### P OCGLUC #### [facility] [address] [address] [address] Kasia Nath Monocytes/100 WBC (Bld) 9.6 % Normal 1.7-12.0 [facility] Comment on above: Performed By: #### P OCGLUC #### [facility] [address] [address] [address] Kasia Nath NEUT # 5.0 103/ul Normal 1.4-6.5 [facility] Comment on above: Performed By: #### P OCGLUC #### [facility] [address] [address] [address] Kasia Nath Neutrophils/100 WBC (Bld) 62.1 % Normal 43.0-75.0 [facility] Comment on above: Performed By: #### P OCGLUC #### [facility] [address] [address] [address] Kasia Nath Platelet mean volume (Bld) [Entitic vol] 10.7 fL Normal 9.5-13.5 [facility] Comment on above: Performed By: #### P OCGLUC #### [facility] [address] [address] [address] Kasia Nath PLT 204 103/ul Normal 150-450 [facility] Comment on above: Performed By: #### P OCGLUC #### [facility] [address] [address] [address] Kasia Nath RBC 4.04 106/ul Critically low 4.20-5.[address] [facility] Comment on above: Performed By: #### P OCGLUC #### [facility] [address] [address] [address] Kasia Nath WBC 8.0 103/ul Normal 4.0-11.0 [facility] Comment on above: Performed By: #### P OCGLUC #### [facility] [address] [address] [address] Kasia Nath GLYCOHEMOGLOBIN A1Con 2022 ADA RECOMMENDATION SEE BELOW Normal [facility] Comment on above: Result Comment: ADA RECOMMENDED LIMIT 4.0 - 6.0 ADA THERAPEUTIC TARGET < 7.0 ACTION SUGGESTED > 7.0 Performed By: #### A 1C ####[facility] [address] [address]Dr. Kasia Nath Glucose [Mass/Vol] 298 mg/dL Normal [facility] Comment on above: Performed By: #### A 1C ####[facility] [address] [address]Dr. Kasia Nath HbA1c (Bld) [Mass fraction] 12.0 % Critically high 4.5-6.2 [facility] Comment on above: Performed By: #### A 1C ####[facility] [address] [place], [place] [address]Dr. Kasia Nath POINT OF CARE GLUCOSEon 12-14 Glucose [Mass/Vol] 227 mg/dL Critically high 74-106 [facility] Comment on above: Performed By: #### C BC #### [facility] [address] [address] [address] Kasia Nath Glucose [Mass/Vol] 214 mg/dL Critically high 74-106 [facility] Comment on above: Performed By: #### C BC #### [facility] [address] [address] [address] Kasia Nath PROF 14(COMP METB)on 023 Albumin [Mass/Vol] 2.6 g/dL Critically low 3.4-5.0 [facility] Comment on above: Performed By: #### B NETWORK SUPPORT SPECIALIST, CMP ####[facility] [address] [address]Dr. Kasia Nath Albumin/Globulin [Mass ratio] 0.6 {ratio} Normal [facility] Comment on above: Performed By: #### B NETWORK SUPPORT SPECIALIST, CMP ####[facility] [address] [address]Dr. Kasia Nath ALP [Catalytic activity/Vol] 94 U/L Normal 46-116 [facility] Comment on above: Performed By: #### B NETWORK SUPPORT SPECIALIST, CMP ####[facility] [address] [place], [place] [address]Dr. Kasia Nath ALT [Catalytic activity/Vol] 16 U/L Normal 14-59 [facility] Comment on above: Performed By: #### B NETWORK SUPPORT SPECIALIST, CMP ####[facility] [address] [place], [place] [address]Dr. Kasia Nath Anion gap [Moles/Vol] 10.6 mmol/L Normal [facility] Comment on above: Performed By: #### B NETWORK SUPPORT SPECIALIST, CMP ####[facility] [address] [place], [place] [address]Dr. Kasia Nath AST [Catalytic activity/Vol] 15 U/L Normal 15-37 [facility] Comment on above: Performed By: #### B NETWORK SUPPORT SPECIALIST, CMP ####[facility] [address] [place], [place] [address]Dr. Kasia Nath Bilirubin [Mass/Vol] 0.8 mg/dL Normal 0.2-1.0 [facility] Comment on above: Performed By: #### B NETWORK SUPPORT SPECIALIST, CMP ####[facility] [address] [place], [place] [address]Dr. Kasia Nath Calcium [Mass/Vol] 8.5 mg/dL Normal 8.5-10.1 [facility] Comment on above: Performed By: #### B NETWORK SUPPORT SPECIALIST, CMP ####[facility] [address] [place], [place] [address]Dr. Kasia Potrillo Chloride [Moles/Vol] 102 mmol/L Normal 98-107 [facility] Comment on above: Performed By: #### B NETWORK SUPPORT SPECIALIST, CMP ####[facility] [address] [place], [place] [address]Dr. Kasia Nath CO2 [Moles/Vol] 30.2 mmol/L Normal 21.0-32.0 [facility] Comment on above: Performed By: #### B NETWORK SUPPORT SPECIALIST, CMP ####[facility] [address] [place], [place] [id number]. Kasia Nath Creatinine [Mass/Vol] 0.94 mg/dL Normal 0.55-1.02 [facility] Comment on above: Performed By: #### B NETWORK SUPPORT SPECIALIST, CMP ####[facility] [address] [place], [place] [address]Dr. Kasia Nath EGFR-AF FINNISH >60 Normal >=60 [facility] Comment on above: Performed By: #### B NETWORK SUPPORT SPECIALIST, CMP ####[facility] [address] [place], [place] [address]Dr. Kasia Nath EGFR-NON AF FINNISH 58 mL/min/1.73m2 Critically low >=60 [facility] Comment on above: Performed By: #### B NETWORK SUPPORT SPECIALIST, CMP ####[facility] [address] [place], [place] [address]Dr. Kasia Nath Globulin (S) [Mass/Vol] 4.0 g/dL Normal [facility] Comment on above: Performed By: #### B NETWORK SUPPORT SPECIALIST, CMP ####[facility] [address] [place], [place] [address]Dr. Kasia Nath Glucose [Mass/Vol] 150 mg/dL Critically high 74-106 [facility] Comment on above: Performed By: #### B NETWORK SUPPORT SPECIALIST, CMP ####[facility] [address] [place], [place] [address]Dr. Kasia Nath Potassium [Moles/Vol] 3.8 mmol/L Normal 3.5-5.1 [facility] Comment on above: Performed By: #### B NETWORK SUPPORT SPECIALIST, CMP ####[facility] [address] [place], [place] [address]Dr. Kasia Nath Protein [Mass/Vol] 6.6 g/dL Normal 6.4-8.2 [facility] Comment on above: Performed By: #### B NETWORK SUPPORT SPECIALIST, CMP ####[facility] [address] [place], [place] [address]Dr. Kasia Nath Sodium [Moles/Vol] 139 mmol/L Normal 136-145 [facility] Comment on above: Performed By: #### B NETWORK SUPPORT SPECIALIST, CMP ####[facility] [address] [place], [place] [address]Dr. Kasia Nath Urea nitrogen [Mass/Vol] 24.0 mg/dL Critically high 7.0-18.0 [facility] Comment on above: Performed By: #### B NETWORK SUPPORT SPECIALIST, CMP ####[facility] [address] [place], [place] [address]JzDoreen Nath Urea nitrogen/Creatinine [Mass ratio] 25.5 mg/mg Normal [facility] Comment on above: Performed By: #### B NETWORK SUPPORT SPECIALIST, CMP ####[facility] [address] [place], [place] [address]VeDr. Kasia Nath BNPon 01-01-2023 Natriuretic peptide B (Bld) [Mass/Vol] 1419.0 pg/mL Normal <=1,800.0 [facility] Comment on above: Performed By: #### B NETWORK SUPPORT SPECIALIST #### [facility] [address] [place] [address] Dr. Kasia Nath CARDIAC EMERY 3-6on 3 CK [Catalytic activity/Vol] 80 U/L Normal 26-192 [facility] Comment on above: Performed By: #### P OCGLUC #### [facility] [address] [place] [address] Dr. Kasia Nath CK.MB [Mass/Vol] 1.85 ng/mL Normal <=3.60 [facility] Comment on above: Performed By: #### P OCGLUC #### [facility] [address] [place] [address] Dr. Kasia Nath HSTROP 13.2 pg/mL Normal 4.0-51.3 [facility] Comment on above: Result Comment: CUT- OFF POINTS HAVE BEEN ESTABLISHED BASED ON THE FOURTH UNIVERSAL DEFINITIONS OF MYOCARDIAL INFARCTION. THE UPPER REFERENCE LIMIT (URL) OF TROPONIN, DEFINED THE 99TH PERCENTILE OF cTnI DISTRIBUTION IN A REFERENCE POPULATION, HAS BEEN CONFIRMED THE DECISION THRESHOLD FOR FL DIAGNOSIS. Performed By: #### P OCGLUC #### [facility] [address] [place] [address] Dr. Kasia Nath CK [Catalytic activity/Vol] 73 U/L Normal 26-192 [facility] Comment on above: Performed By: #### P OCGLUC #### [facility] [address] [address] [address] Kasia Nath CK.MB [Mass/Vol] 1.71 ng/mL Normal <=3.60 [facility] Comment on above: Performed By: #### P OCGLUC #### [facility] [address] [place] [address] Dr. Kasia Nath HSTROP 13.6 pg/mL Normal 4.0-51.3 [facility] Comment on above: Result Comment: CUT- OFF POINTS HAVE BEEN ESTABLISHED BASED ON THE FOURTH UNIVERSAL DEFINITIONS OF MYOCARDIAL INFARCTION. THE UPPER REFERENCE LIMIT (URL) OF TROPONIN, DEFINED THE 99TH PERCENTILE OF cTnI DISTRIBUTION IN A REFERENCE POPULATION, HAS BEEN CONFIRMED THE DECISION THRESHOLD FOR [place] DIAGNOSIS. Performed By: #### P OCGLUC #### [facility] [address] [place] [address] Dr. Kasia Nath CARDIAC EMERY ADMITon 023 CK [Catalytic activity/Vol] 71 U/L Normal 26-192 [facility] Comment on above: Performed By: #### C BC #### [facility] [address] [place] [address] Dr. Kasia Nath CK.MB [Mass/Vol] 1.69 ng/mL Normal <=3.60 [facility] Comment on above: Performed By: #### C BC #### [facility] [address] [place] [address] Dr. Kasia Nath HSTROP 13.0 pg/mL Normal 4.0-51.3 [facility] Comment on above: Result Comment: CUT- OFF POINTS HAVE BEEN ESTABLISHED BASED ON THE FOURTH UNIVERSAL DEFINITIONS OF MYOCARDIAL INFARCTION. THE UPPER REFERENCE LIMIT (URL) OF TROPONIN, DEFINED THE 99TH PERCENTILE OF cTnI DISTRIBUTION IN A REFERENCE POPULATION, HAS BEEN CONFIRMED THE DECISION THRESHOLD FOR [place] DIAGNOSIS. Performed By: #### C BC #### [facility] [address] [place] [address] Dr. Kasia Nath GRETTA 75 ng/mL Normal 9-82 [facility] Comment on above: Performed By: #### C BC #### [facility] [address] [place] [address] Dr. Kasia Nath CBC AUTO DIFFon 01-01-2023 BASO # 0.1 103/ul Normal 0.0-0.1 [facility] Comment on above: Performed By: #### C BC #### [facility] [address] [place] [address] Dr. Kasia Nath Basophils/100 WBC (Bld) 1.1 % Normal 0.2-2.0 [facility] Comment on above: Performed By: #### C BC #### [facility] [address] [place] [address] Dr. Kasia Nath EO # 0.2 103/ul Normal 0.0-0.7 [facility] Comment on above: Performed By: #### C BC #### [facility] [address] [place] [address] Dr. Kasia Nath Eosinophils/100 WBC (Bld) 2.9 % Normal 0.9-7.0 [facility] Comment on above: Performed By: #### C BC #### [facility] [address] [place] [address] Dr. Kasia Nath Erythrocyte distribution width (RBC) [Ratio] 13.8 % Normal 11.0-15.0 [facility] Comment on above: Performed By: #### C BC #### [facility] [address] [place] [address] Dr. Kasia Nath Hematocrit (Bld) [Volume fraction] 36.2 % Normal 36.0-48.0 [facility] Comment on above: Performed By: #### C BC #### [facility] [address] [place] [address] Dr. Kasia Nath Hemoglobin (Bld) [Mass/Vol] 12.1 g/dL Normal 12.0-16.0 [facility] Comment on above: Performed By: #### C BC #### [facility] [address] [place] [address] Dr. Kasia Nath IG # 0.02 10e3/ul Normal 0.00-0.03 [facility] Comment on above: Performed By: #### C BC #### [facility] [address] [place] [address] Dr. Kasia Nath IG % 0.3 % Normal 0.0-0.5 [facility] Comment on above: Performed By: #### C BC #### [facility] [address] [place] [address] Dr. Kasia Nath LYMPH # 1.5 103/ul Normal 1.2-3.8 [facility] Comment on above: Performed By: #### C BC #### [facility] [address] [place] [address] Dr. Kasia Nath Lymphocytes/100 WBC (Bld) 19.9 % Critically low 20.5-60.0 [facility] Comment on above: Performed By: #### C BC #### [facility] [address] [place] [address] Dr. Kasia Nath MANUAL DIFF REQ NO Normal [facility] Comment on above: Performed By: #### C BC #### [facility] [address] [place] [address] Dr. Kasia Nath MCH (RBC) [Entitic mass] 29.7 pg Normal 26.7-34.0 [facility] Comment on above: Performed By: #### C BC #### [facility] [address] [place] [address] Dr. Kasia Nath MCHC (RBC) [Mass/Vol] 33.4 g/dL Normal 29.9-35.2 [facility] Comment on above: Performed By: #### C BC #### [facility] [address] [place] [address] Dr. Kasia Nath MCV (RBC) [Entitic vol] 88.9 fL Normal 81.0-99.0 [facility] Comment on above: Performed By: #### C BC #### [facility] [address] [place] [address] Dr. Kasia Nath MONO # 0.6 103/ul Normal 0.3-0.8 [facility] Comment on above: Performed By: #### C BC #### [facility] [address] [place] [address] Dr. Kasia Nath Monocytes/100 WBC (Bld) 8.0 % Normal 1.7-12.0 [facility] Comment on above: Performed By: #### C BC #### [facility] [address] [place] [address] Dr. Kasia Nath NEUT # 5.1 103/ul Normal 1.4-6.5 [facility] Comment on above: Performed By: #### C BC #### [facility] [address] [place] [address] Dr. Kasia Nath Neutrophils/100 WBC (Bld) 67.8 % Normal 43.0-75.0 [facility] Comment on above: Performed By: #### C BC #### [facility] [address] [place] [address] Dr. Kasia Nath Platelet mean volume (Bld) [Entitic vol] 10.4 fL Normal 9.5-13.5 [facility] Comment on above: Performed By: #### C BC #### [facility] [address] [place] [address] Dr. Kasia Nath PLT 200 103/ul Normal 150-450 [facility] Comment on above: Performed By: #### C BC #### [facility] [address] [place] [address] Dr. Kasia Nath RBC 4.07 106/ul Critically low 4.20-5.[address] [facility] Comment on above: Performed By: #### C BC #### [facility] [address] [place] [address] Dr. Kasia Nath WBC 7.5 103/ul Normal 4.0-11.0 [facility] Comment on above: Performed By: #### C BC #### [facility] [address] [place] [address] CHEST WO CONon [...] two extremes (Agatston score 101-1000). https://pubs.rsna.org /doi/abs/10.1148/radi [email or web address] Electronically authenticated by: RENETTA WALLACE Date: 2023-01-01 14:55 Normal [facility] Covid-19 PCR (CVDTB)on 12-14 SARS-CoV-2 (COVID-19) RNA FERN+probe Ql (Unsp spec) Not detected Normal NOT DETECTED [facility] Comment on above: Result Comment: When [...] for this test is supported by the Filter Operator of Health and Human Service's declaration that [...] longer be used). Performed By: #### C [facility] #### [facility] [address] [address] [address] Kasia Nath ECHO LIMITED STUDYon 023 ECHO LIMITED STUDY Patient: SAIMA CALL Exam Date: 01/01/2023 : 1945 Gender:F Ordering : LD GUERRERO . Admission #: [id number] Family : Order #: [id number] CLICK HERE TO VIEW EXAM ECHOCARDIOGRAM REPORT [...] Medrano M.D. on 01/01/2023 at 13:19 Normal [facility] GLYCOHEMOGLOBIN A1Con 2022 ADA RECOMMENDATION SEE BELOW Normal [facility] Comment on above: Result Comment: ADA RECOMMENDED LIMIT 4.0 - 6.0 ADA THERAPEUTIC TARGET < 7.0 ACTION SUGGESTED > 7.0 Performed By: #### P OCGLUC #### [facility] [address] [address] [address] Kasia Nath Glucose [Mass/Vol] 318 mg/dL Normal [facility] Comment on above: Performed By: #### P OCGLUC #### [facility] [address] [address] [address] Kasia Nath HbA1c (Bld) [Mass fraction] 12.7 % Critically high 4.5-6.2 [facility] Comment on above: Performed By: #### P OCGLUC #### [facility] [address] [address] [address] Kasia Nath POINT OF CARE GLUCOSEon 12-14 Glucose [Mass/Vol] 162 mg/dL Critically high [facility] Comment on above: Performed By: #### P OCGLUC ####[facility] [address] [address]Dr. Kasia Nath Glucose [Mass/Vol] 213 mg/dL Critically high -106 [facility] Comment on above: Performed By: #### P OCGLUC ####[facility] [address] [id number] Kasia Nath Glucose [Mass/Vol] 248 mg/dL Critically high -106 [facility] Comment on above: Performed By: #### P OCGLUC #### [facility] [address] [address] [address] Kasia Nath PROF CHEM 8 (BAS METB)on 02- 20-2023 Anion gap [Moles/Vol] 11.8 mmol/L Normal [facility] Comment on above: Performed By: #### C BC #### [facility] [address] [place] [address] Dr. Kasia Nath Calcium [Mass/Vol] 8.4 mg/dL Critically low 8.5-10.1 [facility] Comment on above: Performed By: #### C BC #### [facility] [address] [place] [address] Dr. Kasia Nath Chloride [Moles/Vol] 102 mmol/L Normal 98-107 [facility] Comment on above: Performed By: #### C BC #### [facility] [address] [place] [address] Dr. Kasia Nath CO2 [Moles/Vol] 28.4 mmol/L Normal 21.0-32.0 [facility] Comment on above: Performed By: #### C BC #### [facility] [address] [place] [address] Dr. Kasia Nath Creatinine [Mass/Vol] 1.09 mg/dL Critically high 0.55-1.02 [facility] Comment on above: Performed By: #### C BC #### [facility] [address] [place] [address] Dr. Kasia Nath EGFR-AF FINNISH 59 mL/min/1.73m2 Critically low >=60 [facility] Comment on above: Performed By: #### C BC #### [facility] [address] [place] [address] Dr. Kasia Nath EGFR-NON AF FINNISH 49 mL/min/1.73m2 Critically low >=60 [facility] Comment on above: Performed By: #### C BC #### [facility] [address] [place] [address] Dr. Kasia Nath Glucose [Mass/Vol] 247 mg/dL Critically high 74-106 [facility] Comment on above: Performed By: #### C BC #### [facility] [address] [place] [address] Dr. Kasia Nath Potassium [Moles/Vol] 4.2 mmol/L Normal 3.5-5.1 [facility] Comment on above: Performed By: #### C BC #### [facility] [address] [address] [address] Kasia Nath Sodium [Moles/Vol] 138 mmol/L Normal 136-145 [facility] Comment on above: Performed By: #### C BC #### [facility] [address] [address] [address] Kasia Nath Urea nitrogen [Mass/Vol] 28.0 mg/dL Critically high 7.0-18.0 [facility] Comment on above: Performed By: #### C BC #### [facility] [address] [address] [address] Kasia Nath Urea nitrogen/Creatinine [Mass ratio] 25.7 mg/mg Normal [facility] Comment on above: Performed By: #### C BC #### [facility] [address] [address] [address] Kasia Nath XR CHEST 1 Von [...] by: Miranda ALVAREZ Date: 2023-01-01 05:38 Normal [facility] ECHOCARDIO M/2D COMPLETEon 1 11-15-2021 ECHOCARDIO M/2D COMPLETE Patient: JOE CALL Exam Date: 09/15/2022 : 1945 Gender:F Ordering : Y[facility] Admission #: [id number] Family : DR SHANTEL STEVEN M.D. Order #: [id number] CLICK HERE TO VIEW EXAM ECHOCARDIOGRAM REPORT [...] M.D. on 09/15/2022 at 18:17 Normal [facility] GI PANEL (PCR)on 05-02-2022 Adenovirus F 40/41 Not detected Normal NOT DETECTED [facility] Comment on above: Performed By: #### P OCGLUC #### [facility] [address] [place] [address] Dr. Kasia Nath Astrovirus Not detected Normal NOT DETECTED [facility] Comment on above: Performed By: #### P OCGLUC #### [facility] [address] [place] [address] Dr. Kasia Nath C. Diff toxin A/B Not detected Normal NOT DETECTED [facility] Comment on above: Performed By: #### P OCGLUC #### [facility] [address] [place] [address] Dr. Kasia Nath Campylobacter Not detected Normal NOT DETECTED [facility] Comment on above: Performed By: #### P OCGLUC #### [facility] [address] [address] [address] Kasia Nath Cryptosporidium Not detected Normal NOT DETECTED [facility] Comment on above: Performed By: #### P OCGLUC #### [facility] [address] [address] [address] Kasia Nath Cyclos. Cayetanensis Not detected Normal NOT DETECTED [facility] Comment on above: Performed By: #### P OCGLUC #### [facility] [address] [place] [address] Dr. Kasia Nath E. Coli O157 Not Applicable Normal Not Applicable [facility] Comment on above: Performed By: #### P OCGLUC #### [facility] [address] [address] [address] Kasia Nath E. histolytica Not detected Normal NOT DETECTED [facility] Comment on above: Performed By: #### P OCGLUC #### [facility] [address] [place] [address] Dr. Kasia Nath EAEC Not detected Normal NOT DETECTED [facility] Comment on above: Performed By: #### P OCGLUC #### [facility] [address] [place] [address] Dr. Kasia Nath EIEC Not detected Normal NOT DETECTED [facility] Comment on above: Performed By: #### P OCGLUC #### [facility] [address] [place] [address] Dr. Kasia Nath EPEC Detected Abnormal NOT DETECTED [facility] Comment on above: Performed By: #### P OCGLUC #### [facility] [address] [place] [address] Dr. Kasia Nath ETEC Not detected Normal NOT DETECTED [facility] Comment on above: Performed By: #### P OCGLUC #### [facility] [address] [place] [address] Dr. Kasia Nath G. Lamblia Not detected Normal NOT DETECTED [facility] Comment on above: Performed By: #### P OCGLUC #### [facility] [address] [place] [address] Dr. Kasia Nath GIPANEL CONTROLS PASSED Normal [facility] Comment on above: Performed By: #### P OCGLUC #### [facility] [address] [address] [address] Kasia FRAIRE HEADER GI PANEL BACTERIA Normal T [facility] Comment on above: Performed By: #### P OCGLUC #### [facility] [address] [address] [address] Kasia GE ECOLI GI PANEL DIARRHEAGENIC E.COLI / SHIGELLA Normal [facility] Comment on above: Performed By: #### P OCGLUC #### [facility] [address] [address] [address] Kasia GE INFO SEE BELOW [place] Comment on above: Result Comment: EAEC - Enteroaggregative E. Coli EPEC- Enteropathogenic E. Coli ETEC- Enterotoxigenic E. Coli lt/st STEC- Shigella-like toxin-producing E. Coli stx1/stx2 EIEC- Shigella/Enteroinvasive E. Coli Performed By: #### P OCGLUC #### [facility] [address] [address] [address] Kasia GE PARASITES GI PANEL PARASITES Normal [facility] Comment on above: Performed By: #### P OCGLUC #### [facility] [address] [address] [address] Kasia GE VIRUS GI PANEL VIRUSES Normal [facility] Comment on above: Performed By: #### P OCGLUC #### [facility] [address] [address] [address] Kasia Nath Norovirus GI/GII Not detected Normal NOT DETECTED [facility] Comment on above: Performed By: #### P OCGLUC #### [facility] [address] [address] [address] Kasia Garland. Shigelloides Not detected Normal NOT DETECTED [facility] Comment on above: Performed By: #### P OCGLUC #### [facility] [address] [address] [address] Kasia Nath Rotavirus A Not detected Normal NOT DETECTED [facility] Comment on above: Performed By: #### P OCGLUC #### [facility] [address] [address] [address] Kasia Nath Salmonella Not detected Normal NOT DETECTED [facility] Comment on above: Performed By: #### P OCGLUC #### [facility] [address] [address] [address] Kasia Nath Sapovirus Not detected Normal NOT DETECTED [facility] Comment on above: Performed By: #### P OCGLUC #### [facility] [address] [address] [address] Kasia Nath STEC Not detected Normal NOT DETECTED [facility] Comment on above: Performed By: #### P OCGLUC #### [facility] [address] [place] [address] Dr. Kasia Nath Vibrio Not detected Normal NOT DETECTED [facility] Comment on above: Performed By: #### P OCGLUC #### [facility] [address] [address] [address] Kasia Nath Vibrio Cholera Not detected Normal NOT DETECTED [facility] Comment on above: Performed By: #### P OCGLUC #### [facility] [address] [address] [address] Kasia Nath Y. Enterocolitica Not detected Normal NOT DETECTED [facility] Comment on above: Performed By: #### P OCGLUC #### [facility] [address] [place] [address] Dr. Kasia Nath OCC BLD IMMUNO SCREENon 04-13 OCCULT BLOOD Negative Normal NEGATIVE [facility] Comment on above: Performed By: #### C BC #### [facility] [address] [place] [address] Dr. Kasia Nath XR knee BI 4Von 08-25-2021 XR knee BI 4V [facility] [employer] Other XR knee BI 4V [facility] [employer] Other XR knee BI 4V [address] [place] [address] [employer] Other XR knee BI 4V [address] [employer] Other XR knee BI 4V XRay Report [facility] [employer] Other XR knee BI 4V Signed hi5 Other XR knee BI 4V Patient: Joe Call MR#: [id number] [place] [employer] Other XR knee BI 4V 0 hi5 Other XR knee BI 4V : 1945 Acct:[id number] hi5 Other XR knee BI 4V Age/Sex: 76 / F ADM Date: 08/25/21 hi5 Other XR knee BI 4V Loc: SOXD Room: Type : [facility] hi5 Other XR knee BI 4V Attending Dr: Akbar Cui II, MD hi5 Other XR knee BI 4V Ordering Provider: Akbar Cui MD hi5 Other XR knee BI 4V Date of Service: 08/25/21 hi5 Other XR knee BI 4V XR/XR knee BI 4V: Pain in right knee;Pain in left knee hi5 Other XR knee BI 4V Copies to: Akbar Cui MD hi5 Other XR knee BI 4V XR knee BI 4V 08/25/2021 1:32 PM hi5 Other XR knee BI 4V SIGNS AND SYMPTOMS: Bilateral knee pain with decreased range of motion, weakness hi5 Other XR knee BI 4V PROTOCOL: Frontal, lateral, and sunrise views of the bilateral knees hi5 Other XR knee BI 4V COMPARISON: None hi5 Other XR knee BI 4V FINDINGS: hi5 Other XR knee BI 4V There is mild narrowing of the medial weightbearing joint spaces. There is mild patellofemoral hi5 Other XR knee BI 4V joint space loss. There is spurring of the poles of the patella bilaterally. There is mild lateral hi5 Other XR knee BI 4V patellar subluxation bilaterally. There is no evidence of acute displaced fracture. Well-corticated hi5 Other XR knee BI 4V ossific structures o r separate from the right medial weightbearing joint space. This may represent a hi5 Other XR knee BI 4V calcified loose bodies. hi5 Other XR knee BI 4V XR/XR knee BI 4V hi5 Other XR knee BI 4V IMPRESSION: [employer] Other XR knee BI 4V Degenerative changes are noted are noted bilaterally, as above. hi5 Other XR knee BI 4V Well-corticated ossific structures or separate from the right medial weightbearing joint space. This hi5 Other XR knee BI 4V may represent a calcified loose bodies. hi5 Other XR knee BI 4V No acute displaced fracture. hi5 Other XR knee BI 4V There is mild latera l subluxation of the patella within the patellofemoral joint space bilaterally. hi5 Other XR knee BI 4V Impression dictated by: Emery Lobo M.D.08/25/2021 2:51 PM hi5 Other XR knee BI 4V Dictation Location: [place] [address] hi5 Other XR knee BI 4V Transcribed By: RAFAEL 08/25/21 1451 hi5 Other XR knee BI 4V Dictated By: Emery Lobo II, MD 08/25/21 1447 hi5 Other XR knee BI 4V Signed By: hi5 Other XR knee BI 4V 08/25/21 1451 [id number] [facility] [employer] Other XR pelvis 1-2Von 08-25-2021 XR pelvis 1-2V XR/XR pelvis 1-2V: Pain in right knee;Pain in left knee hi5 Other XR pelvis 1-2V XR pelvis 1-2V 08/25/2021 1:32 PM hi5 Other XR pelvis 1-2V SIGNS AND SYMPTOMS: Bilateral generalized knee pain, limited range of motion with weakness hi5 Other XR pelvis 1-2V PROTOCOL: Frontal radiograph of the pelvis hi5 Other XR pelvis 1-2V There is mild narrowing of the weightbearing joint spaces. Mild degenerative changes are noted in hi5 Other XR pelvis 1-2V the symphysis pubis. There is no evidence of fracture or dislocation. Vascular calcifications are hi5 Other XR pelvis 1-2V present in the pelvis. hi5 Other XR pelvis 1-2V XR/XR pelvis 1-2V hi5 Other XR pelvis 1-2V No fracture or dislocation. hi5 Other XR pelvis 1-2V Mild degenerative changes are noted in the joint space of the hips. hi5 Other XR pelvis 1-2V Impression dictated by: Emery Lobo M.D.08/25/2021 2:54 PM hi5 Other XR pelvis 1-2V Transcribed By: PWS 08/25/21 [facility] hi5 Other XR pelvis 1-2V Dictated By: Emery Lobo II, MD 08/25/21 [facility] hi5 Other XR pelvis 1-2V 08/25/[address] [place] [address] [employer] Other Vital Signs Date Time Vital Sign Value Performing Clinician Facility 04-03-2024 11:29-0400 Body height 165.1 cm MD Shantel Steven Work Phone: [facility] 04-03-2024 11:29-0400 Body mass index (BMI) [Ratio] 43.7 kg/m2 MD Shantel Steven Work Phone: [facility] 04-03-2024 11:29-0400 Body weight 119.29 kg MD Shantel Steven Work Phone: [facility] 04-03-2024 11:29-0400 Diastolic blood pressure 71 mm[Hg] MD Shantel Steven Work Phone: [facility] 04-03-2024 11:29-0400 Heart rate 56 /min MD Shantel Steven Work Phone: [facility] 04-03-2024 11:29-0400 Systolic blood pressure 116 mm[Hg] MD Shantel Steven Work Phone: [facility] 03-25-2024 15:15-0400 Body height 165.1 cm MD Shantel Steven Work Phone: [facility] 03-25-2024 15:15-0400 Body mass index (BMI) [Ratio] 43.9 kg/m2 MD Shantel Steven Work Phone: [facility] 03-25-2024 15:15-0400 Body weight 119.74 kg MD Shantel Steven Work Phone: [facility] 03-25-2024 15:15-0400 Diastolic blood pressure 87 mm[Hg] MD Shantel Steven Work Phone: [facility] 03-25-2024 15:15-0400 Heart rate 66 /min MD Shantel Steven Work Phone: [facility] 03-25-2024 15:15-0400 Systolic blood pressure 125 mm[Hg] MD Shantel Steven Work Phone: [facility] 02-15-2024 14:18-0400 Body height 165.1 cm [facility] 02-15-2024 14:18-0400 Body mass index (BMI) [Ratio] 38.6 kg/m2 [facility] 02-15-2024 14:18-0400 Body weight 105.23 kg [facility] 02-15-2024 14:18-0400 Diastolic blood pressure 66 mm[Hg] [facility] 02-15-2024 14:18-0400 Heart rate 55 /min [facility] 02-15-2024 14:18-0400 Systolic blood pressure 114 mm[Hg] [facility] 01-18-2024 10:23-0500 Body height 165.1 cm [facility] 01-18-2024 10:23-0500 Body mass index (BMI) [Ratio] 43.2 kg/m2 [facility] 01-18-2024 10:23-0500 Body weight 117.93 kg [facility] 01-18-2024 10:23-0500 Diastolic blood pressure 70 mm[Hg] [facility] 01-18-2024 10:23-0500 Heart rate 98 /min [facility] 01-18-2024 10:23-0500 SaO2% (BldA) [Mass fraction] 65 % [facility] 01-18-2024 10:23-0500 Systolic blood pressure 110 mm[Hg] [facility] 10-23-2023 16:00-0500 Body height 165.1 cm [employer] Other hi5 Other 10-23-2023 16:00-0500 Body mass index (BMI) [Ratio] 44.63 kg/m2 Aziz Bakhous Other hi5 Other 10-23-2023 16:00-0500 Body temperature 96.8 [degF] Azghassan Kochs Other hi5 Other 10-23-2023 16:00-0500 Body weight 121.66 kg Azghassan Kochs Other hi5 Other 10-23-2023 16:00-0500 Diastolic blood pressure 60 mm[Hg] Jaleesa Kochs Other hi5 Other 10-23-2023 16:00-0500 Respiratory rate 18 /min Jaleesa Kochs Other hi5 Other 10-23-2023 16:00-0500 SaO2% (BldA) [Mass fraction] 99 % Jaleesa Kochs Other hi5 Other 10-23-2023 16:00-0500 Systolic blood pressure 124 mm[Hg] Jaleesa Kochs Other hi5 Other 10-18-2023 13:45-0500 Body height 165.1 cm Shantel Steven Other hi5 Other 10-18-2023 13:45-0500 Body mass index (BMI) [Ratio] 44.86 kg/m2 Shantel Steven Other hi5 Other 10-18-2023 13:45-0500 Body temperature 97.3 [degF] Shantel Steven Other hi5 Other 10-18-2023 13:45-0500 Body weight 122.29 kg Shantel Steven Other hi5 Other 10-18-2023 13:45-0500 Diastolic blood pressure 84 mm[Hg] Shantel Steven Other hi5 Other 10-18-2023 13:45-0500 SaO2% (BldA) [Mass fraction] 97 % Shantel Steven Other hi5 Other 10-18-2023 13:45-0500 Systolic blood pressure 132 mm[Hg] Shantel Steven Other hi5 Other 09-04-2023 14:00-0400 Body height 165.1 cm Shantel Steven Other hi5 Other 09-04-2023 14:00-0400 Body mass index (BMI) [Ratio] 43.06 kg/m2 Shantel Steven Other hi5 Other 09-04-2023 14:00-0400 Body weight 117.39 kg Shantel Steven Other hi5 Other 09-04-2023 14:00-0400 Diastolic blood pressure 69 mm[Hg] Shantel Steven Other hi5 Other 09-04-2023 14:00-0400 Systolic blood pressure 127 mm[Hg] Shantel Steven Other hi5 Other 07-17-2023 10:00-0400 Body height 165.1 cm Shantel Steven Other hi5 Other 07-17-2023 10:00-0400 Body mass index (BMI) [Ratio] 43.03 kg/m2 Shantel Steven Other hi5 Other 07-17-2023 10:00-0400 Body weight 117.3 kg Shantel Steven Other hi5 Other 07-17-2023 10:00-0400 Diastolic blood pressure 76 mm[Hg] Shantel Steven Other hi5 Other 07-17-2023 10:00-0400 Systolic blood pressure 164 mm[Hg] Shantel Steven Other hi5 Other 04-30-2023 14:30-0400 Body height 165.1 cm Shantel Steven Other hi5 Other 04-30-2023 14:30-0400 Body mass index (BMI) [Ratio] 43.43 kg/m2 Shantel Steven Other hi5 Other 04-30-2023 14:30-0400 Body weight 118.39 kg Shantel Steven Other hi5 Other 04-30-2023 14:30-0400 Diastolic blood pressure 75 mm[Hg] Shantel Steven Other hi5 Other 04-30-2023 14:30-0400 Systolic blood pressure 135 mm[Hg] Shantel Steven Other hi5 Other 03-09-2023 12:15-0400 Body height 165.1 cm Shantel Steven Other hi5 Other 03-09-2023 12:15-0400 Body mass index (BMI) [Ratio] 43.59 kg/m2 Shantel Steven Other hi5 Other 03-09-2023 12:15-0400 Body weight 118.84 kg Shantel Steven Other hi5 Other 03-09-2023 12:15-0400 Diastolic blood pressure 82 mm[Hg] Shantel Steven Other hi5 Other 03-09-2023 12:15-0400 SaO2% (BldA) [Mass fraction] 97 % Shantel Steven Other hi5 Other 03-09-2023 12:15-0400 Systolic blood pressure 130 mm[Hg] Shantel Steven Other hi5 Other 02-20-2023 10:00-0400 Body height 165.1 cm Shantel Steven Other hi5 Other 02-20-2023 10:00-0400 Body mass index (BMI) [Ratio] 41.93 kg/m2 Shantel Steven Other hi5 Other 02-20-2023 10:00-0400 Body weight 114.31 kg Shantel Steven Other hi5 Other 02-20-2023 10:00-0400 Diastolic blood pressure 84 mm[Hg] Shantel Steven Other hi5 Other 02-20-2023 10:00-0400 Systolic blood pressure 132 mm[Hg] Shantel Steven Other hi5 Other 08-04-2022 13:33-0400 Blood Pressure Location Bin SORENSON [facility] 08-04-2022 13:33-0400 Diastolic blood pressure 88 mm[Hg] Bin SORENSON [facility] [place] 08-04-2022 13:33-0400 Heart rate 76 /min Bin SORENSON [facility] [place] 08-04-2022 13:33-0400 Respiratory rate 16 /min Bin SORENSON [facility] [place] 08-04-2022 13:33-0400 Systolic blood pressure 130 mm[Hg] Bin SORENSON [facility] [place] 08-25-2021 14:30-0400 Body height 165.1 cm Akbar GardnerWandera Other hi5 Other 08-25-2021 14:30-0400 Body mass index (BMI) [Ratio] 43.26 kg/m2 Akbar GardnerWandera Other hi5 Other 08-25-2021 14:30-0400 Body weight 117.94 kg Akbar GardnerWandera Other hi5 Other Encounters Encounter Date Encounter Type Care Provider Facility Start: 04-03-2024 End: 04-03-2024 ambulatory MD Shantel Steven Work Phone: [facility] Work Phone: Start: 04-03-2024 End: 04-03-2024 Patient encounter procedure MD Shantel Steven Work Phone: [facility] Work Phone: Start: 04-01-2024 Non-patient / Non-visit MD Alessia Steven Work Phone: [facility] Work Phone: Start: 03-31-2024 Non-patient / Non-visit MD Alessia Steven Work Phone: [facility] Work Phone: Start: 03-28-2024 Non-patient / Non-visit MD Alessia Steven Work Phone: [facility] Work Phone: Start: 03-27-2024 Non-patient / Non-visit MD Alessia Steven Work Phone: [facility] Work Phone: Start: 03-26-2024 Non-patient / Non-visit MD Alessia Steven Work Phone: [facility] Work Phone: Start: 03-25-2024 End: 03-25-2024 Patient encounter procedure MD Shantel Steven Work Phone: [facility] Work Phone: Start: 03-13-2024 End: 03-13-2024 ambulatory MD Shantel Steven Work Phone: [facility] Work Phone: Start: 03-13-2024 End: 03-13-2024 Patient encounter procedure MD Shantel Steven Work Phone: [facility] [address] Work Phone: Start: 03-07-2024 End: 03-07-2024 ambulatory [facility] Start: 02-19-2024 ambulatory Facility:[facility] Start: 02-15-2024 End: 02-15-2024 ambulatory [facility] Work Phone: Start: 02-15-2024 End: 02-15-2024 Patient encounter procedure [facility] Work Phone: Start: 01-29-2024 Non-patient / Non-visit [facility] Work Phone: Start: 01-24-2024 Non-patient / Non-visit [facility] Work Phone: Start: 01-22-2024 Non-patient / Non-visit [facility] Work Phone: Start: 01-18-2024 End: 01-18-2024 Patient encounter procedure [facility] Work Phone: Start: 01-15-2024 Non-patient / Non-visit [facility] Work Phone: Start: 01-04-2024 Non-patient / Non-visit [facility] Work Phone: Start: 12-18-2023 End: 12-18-2023 ambulatory Shantel Steven Other hi5 Other Start: 12-18-2023 Telephone encounter Shantel Steven [facility] Start: 11-19-2023 End: 11-19-2023 ambulatory Shantel Steven Other hi5 Other Start: 11-19-2023 Telephone encounter Shantel Steven [facility] Start: 10-23-2023 End: 10-23-2023 ambulatory Aziz Bakhous Other hi5 Other Start: 10-23-2023 Office outpatient ne w 30 minutes Aziz Bakhous [facility] Start: 10-22-2023 End: 10-22-2023 ambulatory Shantel Steven Other hi5 Other Start: 10-22-2023 Telephone encounter Shantel Steven [facility] Start: 10-18-2023 End: 10-18-2023 ambulatory Shantel Steven Other hi5 Other Start: 10-18-2023 Office outpatient vi sit 15 minutes Shantel Steven [facility] Start: 09-07-2023 End: 09-07-2023 ambulatory Shantel Steven Other hi5 Other Start: 09-07-2023 Telephone encounter Shantel Steven [facility] Start: 09-04-2023 End: 09-04-2023 ambulatory Shantel Tenisha Other hi5 Other Start: 09-04-2023 Office outpatient vi sit 25 minutes Shantel Steven [facility] Start: 08-23-2023 End: 08-23-2023 ambulatory Shantel Steven Other hi5 Other Start: 08-23-2023 Telephone encounter Shantel Steven [facility] Start: 08-17-2023 End: 08-17-2023 ambulatory [facility] Start: 07-23-2023 Telephone encounter Shantel Steven [facility] Start: 07-23-2023 End: 07-23-2023 ambulatory [facility] hi5 Other Start: 07-17-2023 End: 07-17-2023 ambulatory Shantel Tenisha Other hi5 Other Start: 07-17-2023 Office outpatient vi sit 25 minutes Shantel Steven [facility] Start: 05-30-2023 End: 05-30-2023 ambulatory Shantel Steven Other hi5 Other Start: 05-30-2023 Telephone encounter Shantel Steven [facility] Start: 05-22-2023 End: 05-22-2023 ambulatory Shantel Tenisha Other hi5 Other Start: 05-22-2023 Telephone encounter Shantel Steven [facility] Start: 05-16-2023 End: 05-16-2023 ambulatory Shantel Steven Other hi5 Other Start: 05-16-2023 Telephone encounter Shantel Steven [facility] Start: 05-07-2023 End: 05-07-2023 ambulatory Shantel Tenisha Other hi5 Other Start: 05-07-2023 Telephone encounter Shantel Steven [facility] Start: 04-30-2023 End: 04-30-2023 ambulatory Shantel Steven Other hi5 Other Start: 04-30-2023 Office outpatient vi sit 25 minutes Shantel Steven [facility] Start: 04-25-2023 End: 04-25-2023 ambulatory RICA MEDRANO hi5 Other Start: 04-25-2023 Telephone encounter Shantel Tenisha [facility] Start: 04-12-2023 End: 04-12-2023 ambulatory Shantel Steven Other hi5 Other Start: 04-12-2023 Telephone encounter Shantel Tenisha [facility] Start: 03-09-2023 End: 03-09-2023 ambulatory Shantel Steven Other hi5 Other Start: 03-09-2023 Office outpatient vi sit 15 minutes Shantel Steven [facility] Start: 03-07-2023 End: 03-07-2023 ambulatory Shantel Steven Other hi5 Other Start: 03-07-2023 Telephone encounter Shantel Steven [facility] Start: 03-06-2023 End: 03-06-[address] SHANTEL STEVEN Facility:[facility] Start: 03-05-2023 End: 03-05-2023 ambulatory Shantel Steven Other hi5 Other Start: 03-05-2023 Telephone encounter Shantel Steven [facility] Start: 02-26-2023 End: 02-26-2023 ambulatory Shantel Steven Other hi5 Other Start: 02-26-2023 Telephone encounter Shantel Steven [facility] Start: 02-24-2023 End: 02-24-[address] SHANTEL STEVEN Facility:[facility] Start: 02-23-2023 End: 02-23-2023 ambulatory Shantel Steven Other hi5 Other Start: 02-23-2023 Telephone encounter Shantel Steven [facility] Start: 02-20-2023 End: 02-20-2023 ambulatory Shantel Steven Other hi5 Other Start: 02-20-2023 Transitional care [facility] 14 day discharge Shantel Steven [facility] Start: 02-16-2023 End: 02-16-2023 ambulatory Shantel Steven Other hi5 Other Start: 02-16-2023 Telephone encounter Shantel Steven [facility] Start: 02-13-2023 End: 02-14-[address] SHANTEL STEVEN Facility:[facility] Start: 02-02-2023 End: 02-02-2023 ambulatory Shantel Steven Other hi5 Other Start: 02-02-2023 Telephone encounter Shantel Steven [facility] Start: 01-16-2023 End: 01-17-[address] DOCTOR CARMONA Facility:[facility] Start: 01-05-2023 End: 01-05-2023 ambulatory BIN ROJAS Facility:[facility] Start: 01-01-2023 End: 01-02-2023 ambulatory ANALISA WHYTE Facility:[facility] Start: 11-29-2022 End: 11-29-2022 ambulatory Shantel Steven Other hi5 Other Start: 11-29-2022 Telephone encounter Shantel Steven [facility] Start: 11-27-2022 End: 11-27-2022 ambulatory Shantel Steven Other hi5 Other Start: 11-27-2022 Telephone encounter Shantel Steven [facility] Start: 11-24-2022 End: 11-24-2022 ambulatory Shantel Steven Other hi5 Other Start: 11-24-2022 Telephone encounter Shantel Steven [facility] Start: 11-06-2022 ambulatory YAMEL MCCRACKEN Facility :[facility] Start: 09-15-2022 End: 09-16-[address] SHANTEL STEVEN Facility:[facility] Start: 08-04-2022 End: 08-04-2022 Patient encounter procedure Bin R NILL [facility] [place] Start: 05-02-2022 End: 05-02-[address] SHANTEL STEVEN Facility:[facility] Start: 08-25-2021 Office outpatient ne w 45 minutes Akbar Cui II [facility] Start: 08-09-2017 End: 08-12-2017 Ambulatory PROVIDER UNKNOWN Facility:[facility] Procedures Date Procedure Procedure Detail Performing Clinician [...] Activity Detail Author Start: 02-15-2024 Patient referral [facility] Work Phone: Comprehensive metabo lic 2000 panel - Serum or Plasma [facility] Microalbumin [Mass/v olume] in Urine [facility] Patient referral [facility] Work Phone: [facility] Immunizations Immunization Date Immunization Notes Care Provider Fa cility 01-18-2024 Pneumococcal Conjugate Vaccine, 20 valent [facility] 09-04-2023 influenza, high dose seasonal, preservative-free Shantel Steven Other [facility] [employer] Other 09-04-2023 influenza virus vaccine, unspecified formulation [facility] 02-04-2021 COVID-19 mRNA, Comirnaty (Pfizer) [facility] 01-21-2021 COVID-19 mRNA, Comirnaty (Pfizer) [facility] 10-09-2018 influenza virus vaccine, split virus (incl. purified surface antigen) Shantel Steven Other [id number] [facility] [employer] Other 10-09-2018 influenza virus vaccine, unspecified formulation [facility] NEGATED: Highlighted row has not occurred!08-21-2019 influenza virus vaccine, split virus (incl. purified surface antigen) Shantel Steven Other [id number] [facility] [employer] Other Payers Date Payer Category Payer Self-pay [id number] 1958 Medicare [id number] 1958 Self-pay [id number] 1945 Unknown [id number] 2.16.84 [id number] 1945 Unknown [id number] 2.16.84 [id number] 1945 Unknown [id number] 2.16.84 [id number] 1945 Unknown [id number] 2.16.84 [id number] 1945 Unknown [id number] 2.16.84 [id number] 1945 Unknown [id number] 2.16.84 [id number] 1945 Unknown [id number] 2.16.84 [id number] 1945 Unknown [id number] 2.16.84 [id number] 1945 Unknown [id number] 2.16.84 [id number] Unknown Unknown [id number] 2.16.8 [id number] Social History Date Type Detail Facility Sex Assigned At [facility] [employer] Other Start: 08-04-2022 End: 01-18-2024 Tobacco smoking status Ex-smoker (finding) [facility] [place] Tobacco smoking status Never [facility] [place] Start: 1945 Sex Assigned At Female [facility] Medical Equipment Procedure Code Equipment Code Equipment Origin al Text Equipment Identifier Dates Blood Sugar Diagnostic (True Metrix Glucose Test Strip) strip Start: 03-31-2024 Pen Needle, Diab etic (Comfort Ez [place]) 33 gauge x 5/32 needle Start: 03-25-2024 Blood Sugar Diagnostic (True Metrix Glucose Test Strip) strip Start: 03-31-2024 End: 03-31-2024 Functional Status Date Assessment Result Facility 08-04-2022 Functional Status N/A [facility] Clinical Notes 08-25-2021 to 03-07-2024 Note Date & Type Note Facility 03-07-2024 Note [place] [facility] - [facility] Subjective Joe Call is a 78 [...] prior cardiac catheterizations. She has history of FL in the past and underwent balloon angioplasty (many years ago, prior to the stent era). 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 In December 2022 she was admitted to the [facility] with decompensated diastolic heart failure, she was treated with diuretic therapy. In February 2023 she was admitted to [facility] with dehydration secondary to acute gastroenteritis. She also had acute kidney injury in that setting. She has history of breast cancer more than 25 years ago s/p mastectomy, chemo and radiation therapy. She has lymphedema in the left arm. In the past she saw a hoist cylinder loader for bleeding behind the eye . she [...] TIMES DAILY NEEDED (more content not included)... [facility] 02-15-2024 Hospital Discharge instructions Ambulatory OrdersReferral to Urology Time Frame: 02/15/24, Location: None Selected [facility] Work Phone: 11-19-2023 Evaluation note Encounter Date Diagnosis Assessment Notes Nov, Lumbar degenerative disc disease (ICD-10 - M51.36) hi5 Other [id number] Evaluation note* Encounter Date Diagnosis Assessment Notes [...] will check vitamin B12 level next visit hi5 Other 12-11-2023 Evaluation note* Encounter Date Diagnosis Assessment Notes Treatment Notes Treatment Clinical Notes Oct, Lumbar degenerative disc disease (ICD-10 - M51.36) hi5 Other 12-07-2023 Evaluation note* Encounter Date Diagnosis Assessment Notes Treatment Notes Treatment Clinical Notes Oct, Bronchitis (ICD-10 - J40) Finish meds. No acute need for antibiotic at this time Oct, Diabetes mellitus with chronic kidney disease (ICD-10 - E11.22) Due for labs, followup w Dr. Mcconnell Oct, Lumbar degenerative disc disease (ICD-10 - M51.36) Pt will contact neurosurgery. hi5 Other 10-27-2023 Evaluation note* Encounter Date Diagnosis Assessment Notes Treatment Notes Treatment Clinical Notes Aug, Chronic kidney disease, stage 4 (severe) (ICD-10 - N18.4) hi5 Other 10-24-2023 Evaluation note* Encounter Date Diagnosis [...] (ICD-10 - M51.36) Pt requests referral to [place] [facility]. Reviewed OARRS report. Aug, Stress incontinence of urine (ICD-10 - N39.3) R/o infection. Discussed could be related to her diabetes med as well. hi5 Other 10-12-2023 Evaluation note* Encounter Date Diagnosis Assessment Notes Treatment Notes Treatment Clinical Notes Aug, Lumbar degenerative disc disease (ICD-10 - M51.36) hi5 Other 10-06-2023 NotePatient here for 1 mo follow up CAD, chronic diastolic heart failure, and PAF. Follow up labs have not been completed yet. Her hadoop admin recently started her on Farxiga but she [...] light-headedness. All other systems reviewed and are negative.[facility] 08-17-2023 NoteCardiology Clinic Note Subjective Joe Call [...] In February 2023 she was admitted to [facility] with dehydration secondary to acute gastroenteritis. She also had acute kidney injury in that setting. She has history of breast cancer more than 25 years ago s/p mastectomy, chemo and radiation therapy. She has lymphedema in the left arm. She has been doing well. No chest pain. No dyspnea. No palpitations. She reports that she is seeing a hoist cylinder loader for bleeding behind the eye . She has had a lot of balance issues, uses a walker to ambulate and has had about 10 falls in the past year. Update: 07/23/2023 She was admitted to [facility] 07/08-07/10/2023 for decompensated HFpEF She was [...] with questions Was prescribed Farxiga by her hadoop admin but did not start after reading about [...] DAYS, Disp: , Rfl (more content not included)...[facility] Encounter Date Diagnosis Assessment Notes Treatment Notes Treatment Clinical Notes Jul, Lumbar degenerative disc disease (ICD-10 - M51.36) hi5 Other 09-11-2023 NoteCardiology Clinic Note Subjective Joe [...] In February 2023 she was admitted to [facility] with dehydration secondary to acute gastroenteritis. She also had acute kidney injury in that setting. She has history of breast cancer more than 25 years ago s/p mastectomy, chemo and radiation therapy. She has lymphedema in the left arm. She has been doing well. No chest pain. No dyspnea. No palpitations. She reports that she is seeing a hoist cylinder loader for bleeding behind the eye . She has had a lot of balance issues, uses a walker to ambulate and has had about 10 falls in the past year. Update: 07/23/2023 She was admitted to [facility] 07/08-07/10/2023 for decompensated HFpEF She was [...] time each day., Disp: (more content not included)...[facility]-11-2023 NotePatient here for follow up [facility] for CHF. She was seen as [...] weakness. All other systems reviewed and are negative.[facility] 07-17-2023 Evaluation note* Encounter Date Diagnosis Assessment [...] refill. Oarrs reviewed. No med changes needed. hi5 Other 07-05-2023 Evaluation note* Encounter Date Diagnosis Assessment Notes Treatment Notes Treatment Clinical Notes May, C. difficile colitis (ICD-10 - A04.72) hi5 Other 06-19-2023 Evaluation note* Encounter Date Diagnosis Assessment Notes Treatment Notes Treatment Clinical Notes Apr, Skin candidiasis (ICD-10 - B37.2) Discussed this is related to her hyperglycemia. Will treat w nystatin, but needs improvement in diet and glucose readings. Apr, Type 2 diabetes mellitus with hyperglycemia, unspecified whether assisted insulin use (ICD-10 - E11.65) Pt agrees to see Dr Mcconnell again. Recently sent to ER for glucose of 608. Apr, Tremor of both hands (ICD-10 - R25.1) Referral to Dr. Lopez Apr, Memory changes (ICD- 10 - R41.3) Referral to Dr. Lopez Apr, Gastroesophageal reflux disease without esophagitis (ICD-10 - K21.9) Improved on carafate w PPI. hi5 Other 06-14-2023 NoteUT Cardiology - [facility] Subjective Joe Call is a [...] prior cardiac catheterizations. She has history of FL in the past and underwent balloon angioplasty (many years ago, prior to the stent era). 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 In December 2022 she was admitted to the [facility] with decompensated diastolic heart failure, she was treated with diuretic therapy. In February 2023 she was admitted to [facility] with dehydration secondary to acute gastroenteritis. She also had acute kidney injury in that setting. She has history of breast cancer more than 25 years ago s/p mastectomy, chemo and radiation therapy. She has lymphedema in the left arm. She has been doing well. No chest pain. No dyspnea. No palpitations. She reports that she is seeing a hoist cylinder loader for bleeding behind the eye . 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 difficile colitis (ICD-10 - A04.72) hi5 Other 04-17-2023 Evaluation note* Encounter Date Diagnosis Assessment Notes Treatment Notes Treatment Clinical Notes Feb, Gastroesophageal ref lux disease without esophagitis (ICD-10 - K21.9) hi5 Other 04-14-2023 Evaluation note* Encounter Date Diagnosis Assessment Notes Treatment Notes Treatment Clinical Notes Feb, Chronic diarrhea (ICD-10 - K52.9) hi5 Other 04-11-2023 Evaluation note* Encounter Date Diagnosis [...] it really overall has not been helpful. hi5 Other 01-13-2023 Evaluation note* Encounter Date Diagnosis Assessment Notes Treatment Notes Treatment Clinical Notes Nov, Type 2 diabetes mellitus with hyperglycemia, unspecified whether continuous churn buttermaker insulin use (ICD-10 - E11.65) hi5 Other 10-14-2021 Evaluation note* Encounter Date Diagnosis [...] training 6. Follow up in 3 months. [place] [employer] Other Evaluation + Plan note No data available for this section [facility] [place] Evaluation noteNo InformationNort [employer] Other Evaluation noteNort [employer] [facility] [employer] Other Evaluation note* Diagnosis Onset Date Resolution Status Chalazion of right eye acute Immunization due acute Urinary incontinence [facility] Work Phone: Evaluation note* Diagnosis Onset Date Resolution Status Chalazion of right eye acute Immunization due acute Urinary incontinence acute Diabetes mellitus with hyperglycemia acute Hypertension acute Hypothyroidism acute Lumbar spondylosis acute Secondary hyperparathyroidism acute [facility] Work Phone: Hiswzfd general Narrative - Reported* Type Description Date [...] History COLONOSCOPY 04/10/2019 Hospitalization History See above hi5 Other Hisshch general Narrative - Reported* Type Description Date [...] History COLONOSCOPY 04/10/2019 Hospitalization History See above hi5 Other History general Narrative - ReportedNoWinking [employer] Other History general Narrative - ReportedNoWinking [employer] Other Hislqho general Narrative - Reported* Type Description Date [...] Hospitalization History See above Hospitalization History [facility], DUE TO HYPOALBUMINEMIA, CHF 07/10/2023 Hospitalization History CHF 01/2023 Hospitalization History GERD 2022 Hospitalization History DIABETES ISSUES 2022 hi5 Other Hospital Discharge instructions No data available for this section [facility] [place] Progress note No data available for this section [facility] [place] Summary Purpose Family History Relationship Condition Age [...] se, stage 4 (severe) (N18.4) Referral Organization [facility]ene Referring Provider First Name Shantel Referring Provider Last Name Tenisha Referring Provider [facility] Referred Organization [facility] Nephrology Referred Provider Cherie Rapp Referred Address [address] [place], [place],[address] Referred Provider Specialty Nephrology Referral Priority Routine General Notes Mariela Kingston 11:35:41 AM >received today, sent P2P Reason *FU 09/13 lumbar p ain Diagnosis 1 Lumbar degenerative disc disease (M51.36) Referral Organization [facility] Referring Provider First Name Shantel Referring Provider Last Name Tenisha Referring Provider Specialty [facility] Referred Organization [facility] Referred Provider Terell Soliz Referred Address [address], [place],[address] Referred Provider Specialty Pain Medicin e Referral Priority Routine General Notes EfremMariela costello 03:09:25 PM >received today, waiting for notes to be locked EfremMariela costello 09/06/2023 10:08:29 AM >notes locked, referral faxed Clinical Notes F: [id number] Reason Poorly controlled di abetes Diagnosis 1 Type 2 diabetes maradna itus with hyperglycemia, unspecified whether assisted insulin use (E11.65) Referral Organization [facility] [employer] [facility]ene Referring Provider First Name Shantel Referring Provider Last Name Tenisha Referring Provider Specialty [facility] [employer] Referred Organization Unknown Facility Referred Provider Joshua Mcconnell Referred Provider Specialty Internal Med icine Referral Priority Routine Reason tremor and memory lo ss - family history of dementia Diagnosis 1 Tremor of both hands (R25.1) Referral Organization [facility] [employer] [facility]ene Referring Provider First Name Shantel Referring Provider Last Name Tenisha Referring Provider Specialty [facility] [employer] Referred Organization Unknown Facility Referred Provider Emery [...] and content) DATE CREATED AUTHOR 05/10/2018 [facility] DATE CREATED AUTHOR AUTHOR'S ORGANIZ ATION 03/10/2023 [facility] DATE CREATED AUTHOR AUTHOR'S ORGANIZ ATION 02/20/2024 [facility] DATE CREATED AUTHOR AUTHOR'S ORGANIZ ATION 03/10/2024 [facility] DATE CREATED AUTHOR AUTHOR'S ORGANIZ ATION 03/25/2024 [facility] [employer] REASON FOR VISIT (unrecogniz ed [...] End: January 18, 2024 Franchesca Sullivan APRN NETWORK SUPPORT SPECIALIST-C Attending Provider Act chiqui Start: January 18, [...] BE BASED ON THE PRIMARY CLINICAL RECORDS. [employer] provides no warranty or guarantee of the accuracy or completeness of information in this document.
[2024-05-04 12:30] LABS: Crystals Seen? None Seen #/HPF (None Seen); Squamous Epithelial Cell Urine FEW #/LPF (NONE/RARE)
[2024-05-04 12:34] LABS: Bacteria Urine MODERATE #/HPF (NONE SEEN)
[2024-05-04 12:36] LABS: Magnesium 1.7 mg/dL (1.8-2.4); Thyroid Stimulating Hormone 0.933 uIU/mL (0.358-3.740)
[2024-05-04 12:38] LABS: Cast Seen? SEEN #/LPF (NONE SEEN); Hyaline Casts Urine RARE; Mucus Urine NONE SEEN (NONE SEEN); Urine Culture Indicated ALREADY ORDERED
[2024-05-04 12:50] LABS: Acetone NEGATIVE (NEGATIVE)
[2024-05-04] MEDS: FLUCONAZOLE 100 MG TABLET PO (13:58)
[2024-05-04] MEDS: CEFTRIAXONE 1,000 MG in 0.9 % SODIUM CHLORIDE 50 ML 100 MG IV (13:59)
[2024-05-04] MEDS: SODIUM POLYSTYRENE SULFON 15 GM/60 ML ORAL.SUSP KAYEXALATE 30 GM PO (13:59)
[2024-05-04] MEDS: 0.9 % SODIUM CHLORIDE 1,000 ML 50 ML IV (13:59)
[2024-05-04] MEDS: CIPROFLOXACIN IN 5 % DEXTROSE 400 MG/200 ML PIGGYBACK 200 MG IV (15:32)
[2024-05-04] MEDS: ONDANSETRON PF 4 MG/2 ML VIAL IV (15:32)
[2024-05-04 16:05] LABS: Glucometer 425 mg/dL (74-106)
[2024-05-04] MEDS: INSULIN ASPART 300 UNIT/3 ML PEN SUBQ ×2 (17:26→21:07)
[2024-05-04] MEDS: RIVAROXABAN 10 MG TABLET 20 MG PO (17:26)
--- NOTE | 2024-05-04 19:25 | XR_ITS ---
[address] [address] Patient Name: JOE CALL MRN: [id number] date: 1945 Sex: F Assigned Patient Location: [place] Current Patient Location: Accession/Order Number: [id number] Exam Date: 05/04/2024 19:40 Report Date: 05/04/2024 21:03 At the request of: CARRIE FAULKNER Procedure: XR chest 1V EXAMINATION: XR chest 1V, , 05/04/2024 7:40 PM EDT INDICATION: picc placement HISTORY: Ordering Provider Reason for Exam: picc placement Technologist Note: Additional: COMPARISON: None. TECHNIQUE: Chest x-ray: One view. FINDINGS: Right upper extremity PICC line is seen in place with distal tip projecting over the expected location of the superior vena cava. No pneumothorax, pleural effusion or focal airspace consolidation. Heart is normal in size. Bony thorax is unremarkable. XR/XR chest 1V IMPRESSION: Right upper extremity PICC line is seen in place with distal tip projecting over the expected location of the superior vena cava. There is no evidence for pneumothorax. Electronically authenticated by: CASSIDY TEMPLE Date: 05/04/2024 21:03
[2024-05-04 20:03] LABS: Glucometer 354 mg/dL (74-106)
[2024-05-04] MEDS: METOPROLOL TARTRATE 50 MG TABLET 150 MG PO (21:00)
[2024-05-04] MEDS: KETOCONAZOLE 15 APPLIC TUBE TOPICAL (21:00)
[2024-05-04] MEDS: ENSURE HP 237 ML LIQUID PO (21:01)
[2024-05-04] MEDS: INSULIN DETEMIR 300 UNIT/3 ML INSULN.PEN 35 UNIT SUBQ (21:11)
[2024-05-05] VITALS (18 sets, daily range): BP systolic 102–146; BP diastolic 66–83; PULSE 59–81; TEMP 36.4–36.6; O2SAT 95–98
[2024-05-05] MEDS: OXYCODONE HCL/ACETAMINOPHEN 5MG/325MG 1 TAB PO ×2 (00:57→23:14)
[2024-05-05 05:12] LABS: Basophils Absolute Auto 0.1 10^3/uL (0.0-0.1); Basophils Percent Auto 0.9 % (0.2-2.0); Eosinophils Absolute Auto 0.1 10^3/uL (0.0-0.7); Eosinophils Percent Auto 1.9 % (0.9-7.0); Hematocrit 33.8 % (36.0-48.0); Hemoglobin 11.1 g/dL (12.0-16.0); Immature Granulocytes Abs Auto 0.02 10^3/uL (0.00-0.03); Immature Granulocytes Pct Auto 0.3 % (0.0-0.5); Lymphocytes Absolute Auto 1.2 10^3/uL (1.2-3.8); Mean Corpuscular HGB Conc 32.8 g/dL (29.9-35.2); Mean Corpuscular Hemoglobin 29.3 pg (26.7-34.0); Mean Corpuscular Volume 89.2 fL (81.0-99.0); Mean Platelet Volume 11.8 fL (9.5-13.5); Monocytes Absolute Auto 0.6 10^3/uL (0.3-0.8); Monocytes Percent Auto 8.7 % (1.7-12.0); Neutrophils Absolute Auto 4.8 10^3/uL (1.4-6.5); Neutrophils Percent Auto 70.2 % (43.0-75.0); Platelet Count 173 10^3/uL (150-450); Red Blood Count 3.79 10^6/uL (4.20-5.40); Red Cell Distribution Width 13.4 % (11.0-15.0); White Blood Count 6.9 10^3/uL (4.0-11.0)
[2024-05-05 05:45] LABS: Alanine Aminotransferase 17 U/L (14-59); Albumin Globulin Ratio 0.6; Albumin Level 2.6 g/dL (3.4-5.0); Alkaline Phosphatase 74 U/L (46-116); Anion Gap 15.8; Aspartate Amino Transferase 12 U/L (15-37); BUN Creatinine Ratio 40.4; Bilirubin Total 0.4 mg/dL (0.2-1.0); Calcium 6.1 mg/dL (8.5-10.1); Carbon Dioxide 24.1 mmol/L (21.0-32.0); Chloride 105 mmol/L (98-107); Estimated GFR (African America 35 (>=60); Estimated GFR (Non-African Ame 29 (>=60); Globulin 4.4 g/dL; Glucose 202 mg/dL (74-106); Magnesium 1.5 mg/dL (1.8-2.4); Potassium 5.9 mmol/L (3.5-5.1); Sodium 139 mmol/L (136-145)
[2024-05-05] MEDS: LEVOTHYROXINE SODIUM 125 MCG TABLET PO (05:51)
--- OUTSIDE RECORDS SUMMARY | 2024-05-05 06:11 | XMS_ITS | CCD ---
Author Organization [facility] Care Team Providers Care Treasury Associate Name Role Phone UNKNOWN, PROVIDER Unavailable Unavailable UNKNOWN, PROVIDER Unavailable Unavailable NIC BRYAN Unavailable Unavailable See STEVENSON Akbar Unavailable [phone] SHANTEL STEVEN Primary Care Physician Shantel Steven Unavailable DR SHANTEL STEVEN Primary Care Unavailable YAMEL MCCRACKEN Consulting Unavailable YAMEL MCCRACKEN Admitting Unavailable YAMEL MCCRACKEN Attending Unavailable MISC, DR MEAN Consulting Unavailable MISC, DR MENA Admitting Unavailable [...] Unavailable MD Shantel Steven Primary Care Provider [phone] MD Shantel Steven Other Provider MD Eloina Hussein Attending Provider [phone] MD Eloina Hussein Referring Provider [phone] Shantel Steven Consulting Unavailable Shantel Steven Primary Care Unavailable Eloina Hussein Referring Unavailable Eloina Hussein Attending Unavailable Eloina Hussein Admitting Unavailable Allergies Allergy Classification Reported Allergen(s) Allergy Type Date of Onset Reaction(s) Facility (1 source) Iodine (And Iodine Containting Drugs) Drug allergy (disorder) 03-04-[address] [facility] Repository (20 sources) Shellfish; 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: [Shellfish] Food allergy (disorder) 03-04-20 12 rash, Eruption of skin (disorder) [facility] (7 sources) Sulfonamides (Antibiotic); 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: [SULFA (SULFONAMIDE ANTIBIOTICS)] Drug allergy (disorder) 03-04-[address] [facility] (20 sources) Sulfacetamide Drug Allergy 02-15-20 24 diarrhea [facility] (13 sources) Contrast media; 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: [contrast media (iodine-based)] Drug allergy Unknown (qualifier value) [facility] [place] (2 sources) Sulfonamides (Antibiotic); 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: [sulfa drugs] Drug allergy Diarrhea (finding) [facility] (2 sources) Glucosamine Drug Allergy [facility] (2 sources) Iodine (And Iodine Containting Drugs) Drug allergy (disorder) 08-09-20 17 [facility] (11 sources) Contrast media Propensity to adverse reactions 11-18-[address] DYE [employer] Other (12 sources) Iodine; 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: [IODINE] Drug Allergy 10-30-[address] [facility] (11 sources) Substance with sulfonamide structure and antibacterial mechanism of action (substance) Drug allergy Unknown [employer] Other (11 sources) Dyes Propensity to adverse reactions Comment:CT Dyes,Dyes,IVP Dyes [facility] [employer] Other (5 sources) Shellfish; 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: [SHELLFISH DERIVED] Allergy to substance 10-30-20 [facility] (5 sources) Iodinated Contrast Media; 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: [IODINATED CONTRAST MEDIA] Allergy to substance 02-15-20 [facility] (1 source) Chocolate; 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: [CHOCOLATE FLAVOR] Propensity to adverse reactions to drug (disorder) 01-17-20 [facility] (1 source) Sulfacetamide Drug Allergy 02-15-20 [facility] Repository (1 source) Sulfonamides (Antibiotic) Drug allergy (disorder) 02-15-20 [facility] Repository Medications Current Medications Medication [...] Daily, # 30 EA, Refills(s) 11, Pharmacy: [facility], 165.1, cm, 03/07/21 13:49:00 EDT, Height/Length [...] 19, 2021 12:00am take 1 capsule by [facility] every twelve hours dilTIAZem HCl ER 120 MG 1 capsule Orally Twice a day Active famotidine 20 mg oral tablet (20 sources) Histamine-2 Receptor Antagonist Start: 01-17-2024 take 20 mg by mouth once daily at bedtime Famotidine Active 20 MG PO Daily at bedtime January 17, 2024 1:00am Start: 01-07-2023 take 1 tablet by [facility] every twenty-four hours Famotidine 20 MG [...] by joesph th every twenty-four hours nystatin [id number] unt/ml topical cream (19 sources) Polyene Antifungal Start: 01-17-2024 Nystatin Ac tive 1 APPLIC TOPICAL Twice daily January 17, 2024 1:00am Nystatin 592125 UNIT/GM 1 application Externally Twice a day for 10 days Active Nystatin 884500 UNIT/GM 1 application Externally Twice a day [...] capsule Orally Once a day Active Vitamins A,C,P-Wssv-Xsvync (Preservision Areds) 4,296 mcg-226 mg-90 mg capsule (3 sources) Start: 01-17-2024 take 1 capsule by mouth twice daily Vitamins A,C,N-Fbdj-Bznpcj (Preservision Areds) 4,296 mcg-226 mg-90 mg capsule [...] 12, 2021 12:00am June 19, 2021 3:13am [id number] 200 actuat albuterol 0.09 mg/actuat metered dose [...] bedtime Orally Once a day Not-Taking amylase 773563 unt / lipase 61684 unt / protease 69885 unt delayed release oral capsule (4 sources) Start: End: Arfbpi-Xyfazmul-Nre lase (Creon) 24,000-76,000 -120,000 unit capsule,delayed release(DR/EC) Discontinued 1 - 2 CAP PO 1-2 TIMES DAILY June 11, 2021 12:00am June 19, 2021 3:12am Start: 05-10-2021 Creon 24,000 u nits oral delayed release capsule See Instructions, take 3 caps with each meal and 2 caps with each snack., # 390 caplet(s), Refills(s) 0, Pharmacy: [facility] #[facility], 165.1, cm, 04/18/21 13:02:00 EDT, Height/Length Dosing, 116.4, kg, 04/18/21 13:02:00 EDT, Weight Dosing Start Date: 05/10/21 Status: Ordered biotin 5 mg oral capsule (7 sources) Start: 01-17-2024 End: 04-03-2024 take 5 mg by mouth once daily Biotin Discontinued 5 MG PO Daily January 17, 2024 1:00am April 03, 2024 11:46am take 1 capsule by [facility] every twenty-four hours Biotin 5 MG [...] Active Start: 03-07-2023 take 1 tablet by ojesph th every eight hours [place] 7-Jny-Wen-Fish Oil (Fish Oil) 1,000 mg (120 mg-180 mg) capsule (3 sources) Start: 01-17-2024 End: 04-03-2024 take 1 capsule by mouth once daily [place] 5-Hns-Bia-Fish Oil (Fish Oil) 1,000 mg (120 mg-180 mg) capsule Discontinued 1 CAP PO Daily January 17, 2024 1:00am April 03, 2024 11:49am Start: 01-17-2024 take 1 capsule by mo [facility] once daily [place] 3-Pvb-Qqa-Fish Oil (Fish Oil) 1,000 mg (120 mg-180 [...] Coronary arteriosclerosis; 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: [Atherosclerotic heart disease of saxman coronary artery without angina pectoris] Onset: 3 [...] sources) Long-term current use of insulin; 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: [terminal block assembler (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 insulin] 01-17-2024 Episodic Other aftercare (1 source) Other terminal block assembler (current) drug therapy; 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: [OTH ENGLISH AS A SECOND LANGUAGE INSTRUCTOR CURRENT DRUG THERAPY] Onset: 3 Episodic Other aftercare (1 source) terminal block assembler (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 anticoagulants; 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: [USP CURRNT USE 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] Onset: 3 Episodic Other [...] Da te Episodic/Chronic Other aftercare (4 sources) detention (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 insulin; 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: [ENGLISH AS A SECOND LANGUAGE INSTRUCTOR CURRENT USE OF INSULIN] Onset: 3 Episodic [...] Basophils (Bld) [#/Vol] 0.1 10 3/uL 0.0-0.1 [facility] Basophils/100 WBC Auto (Bld) on 03-28-2024 Basophils/100 WBC (Bld) 0.9 % 0.2-2.0 [facility] Eosinophils/100 WBC Auto (Bl d)on 03-28-2024 Eosinophils/100 WBC (Bld) 1.7 % 0.9-7.0 [facility] Erythrocyte distribution wid th Auto (RBC) [Ratio]on 03-28-2024 Erythrocyte distribution width (RBC) [Ratio] 14.2 % 11.0-15.0 [facility] Hematocrit Auto (Bld) [Volum e fraction]on 03-28-2024 Hematocrit (Bld) [Volume fraction] 40.0 % 36.0-48.0 [facility] Hemoglobin [Mass/volume] in Bloodon 03-28-2024 Hemoglobin (Bld) [Mass/Vol] 12.6 g/dL 12.0-16.0 [facility] Laboratory - Hematology and Cell countson 03-28-2024 Immature granulocytes/100 WBC (Bld) 0.4 % 0.0-0.5 [facility] Leukocytes [#/volume] correc gali for nucleated erythrocytes in Blood by Automated counon 03-28-2024 WBC corrected for nucl RBC Auto (Bld) [#/Vol] 8.4 10 3/uL 4.0-11.0 [facility] Lymphocytes Auto (Bld) [#/Vo l]on 03-28-2024 Lymphocytes (Bld) [#/Vol] 1.8 10 3/uL 1.2-3.8 [facility] Lymphocytes/100 WBC Auto (Bl d)on 03-28-2024 Lymphocytes/100 WBC (Bld) 21.4 % 20.5-60.0 [facility] MCH Auto (RBC) [Entitic mass ]on 03-28-2024 MCH (RBC) [Entitic mass] 29.0 pg 26.7-34.0 [facility] MCHC Auto (RBC) [Mass/Vol]on 03-28-2024 MCHC (RBC) [Mass/Vol] 31.5 g/dL 29.9-35.2 [facility] MCV Auto (RBC) [Entitic vol] on 03-28-2024 MCV (RBC) [Entitic vol] 92.0 fL 81.0-99.0 [facility] Monocytes Auto (Bld) [#/Vol] on 03-28-2024 Monocytes (Bld) [#/Vol] 0.8 10 3/uL 0.3-0.8 [facility] Monocytes/100 WBC Auto (Bld) on 03-28-2024 Monocytes/100 WBC (Bld) 9.7 % 1.7-12.0 [facility] Neutrophils Auto (Bld) [#/Vo l]on 03-28-2024 Neutrophils (Bld) [#/Vol] 5.6 10 3/uL 1.4-6.5 [facility] Neutrophils/100 WBC Auto (Bl d)on 03-28-2024 Neutrophils/100 WBC (Bld) 65.9 % 43.0-75.0 [facility] No Panel Informationon 03-28 Eosinophils # (Auto) 0.1 10 3/uL 0.0-0.7 [facility] Immature Granulocyte # (Auto) 0.03 10 3/uL 0.00-0.03 [facility] Platelet mean volume Auto (B ld) [Entitic vol]on 03-28-2024 Platelet mean volume (Bld) [Entitic vol] 10.5 fL 9.5-13.5 [facility] Platelets Auto (Bld) [#/Vol] on 03-28-2024 Platelets (Bld) [#/Vol] 197 10 3/uL 150-450 [facility] RBC Auto (Bld) [#/Vol]on RBC (Bld) [#/Vol] 4.35 10 6/uL 4.20-5.40 [facility] Basophils Auto (Bld) [#/Vol] on 03-27-2024 Basophils (Bld) [#/Vol] 0.1 10 3/uL 0.0-0.1 [facility] Basophils/100 WBC Auto (Bld) on 03-27-2024 Basophils/100 WBC (Bld) 0.8 % 0.2-2.0 [facility] Eosinophils/100 WBC Auto (Bl d)on 03-27-2024 Eosinophils/100 WBC (Bld) 1.1 % 0.9-7.0 [facility] Erythrocyte distribution wid th Auto (RBC) [Ratio]on 03-27-2024 Erythrocyte distribution width (RBC) [Ratio] 14.2 % 11.0-15.0 [facility] Glucose mean value [Mass/vol ume] in Blood Estimated from glycated hemoglobinon 03-27-2024 Average glucose Estimated from glycated hemoglobin (Bld) [Mass/Vol] 275 mg/dL [facility] Hematocrit Auto (Bld) [Volum e fraction]on 03-27-2024 Hematocrit (Bld) [Volume fraction] 37.4 % 36.0-48.0 [facility] Hemoglobin [Mass/volume] in Bloodon 03-27-2024 Hemoglobin (Bld) [Mass/Vol] 12.1 g/dL 12.0-16.0 [facility] Laboratory - Hematology and Cell countson 03-27-2024 HbA1c (Bld) [Mass fraction] 11.2 % 4.5-6.2 [facility] Comment on above: ADA RECOMMENDED LIMI T 4.0 - 6.0ADA THERAPEUTIC TARGET < 7.0ACTION SUGGESTED> 7.0 Immature granulocytes/100 WBC (Bld) 0.3 % 0.0-0.5 [facility] Leukocytes [#/volume] correc gali for nucleated erythrocytes in Blood by Automated counon 03-27-2024 WBC corrected for nucl RBC Auto (Bld) [#/Vol] 9.7 10 3/uL 4.0-11.0 [facility] Lymphocytes Auto (Bld) [#/Vo l]on 03-27-2024 Lymphocytes (Bld) [#/Vol] 1.3 10 3/uL 1.2-3.8 [facility] Lymphocytes/100 WBC Auto (Bl d)on 03-27-2024 Lymphocytes/100 WBC (Bld) 13.3 % 20.5-60.0 [facility] MCH Auto (RBC) [Entitic mass ]on 03-27-2024 MCH (RBC) [Entitic mass] 29.2 pg 26.7-34.0 [facility] MCHC Auto (RBC) [Mass/Vol]on 03-27-2024 MCHC (RBC) [Mass/Vol] 32.4 g/dL 29.9-35.2 [facility] MCV Auto (RBC) [Entitic vol] on 03-27-2024 MCV (RBC) [Entitic vol] 90.3 fL 81.0-99.0 [facility] Monocytes Auto (Bld) [#/Vol] on 03-27-2024 Monocytes (Bld) [#/Vol] 0.8 10 3/uL 0.3-0.8 [facility] Monocytes/100 WBC Auto (Bld) on 03-27-2024 Monocytes/100 WBC (Bld) 8.4 % 1.7-12.0 [facility] Neutrophils Auto (Bld) [#/Vo l]on 03-27-2024 Neutrophils (Bld) [#/Vol] 7.4 10 3/uL 1.4-6.5 [facility] Neutrophils/100 WBC Auto (Bl d)on 03-27-2024 Neutrophils/100 WBC (Bld) 76.1 % 43.0-75.0 [facility] No Panel Informationon 03-27 Eosinophils # (Auto) 0.1 10 3/uL 0.0-0.7 [facility] Immature Granulocyte # (Auto) 0.03 10 3/uL 0.00-0.03 [facility] Platelet mean volume Auto (B ld) [Entitic vol]on 03-27-2024 Platelet mean volume (Bld) [Entitic vol] 10.6 fL 9.5-13.5 [facility] Platelets Auto (Bld) [#/Vol] on 03-27-2024 Platelets (Bld) [#/Vol] 204 10 3/uL 150-450 [facility] RBC Auto (Bld) [#/Vol]on RBC (Bld) [#/Vol] 4.14 10 6/uL 4.20-5.40 [facility] Basophils Auto (Bld) [#/Vol] on 03-26-2024 Basophils (Bld) [#/Vol] 0.1 10 3/uL 0.0-0.1 [facility] Basophils/100 WBC Auto (Bld) on 03-26-2024 Basophils/100 WBC (Bld) 0.8 % 0.2-2.0 [facility] Eosinophils/100 WBC Auto (Bl d)on 03-26-2024 Eosinophils/100 WBC (Bld) 1.2 % 0.9-7.0 [facility] Erythrocyte distribution wid th Auto (RBC) [Ratio]on 03-26-2024 Erythrocyte distribution width (RBC) [Ratio] 14.5 % 11.0-15.0 [facility] Estimated glomerular filtrat ion rate (GFR) non- Americanon 03-26-2024 GFR/1.73 sq M.predicted among non-blacks MDRD (S/P/Bld) [Vol rate/Area] 46 mL/min/{1.73_m2} >=60 [facility] Glucose mean value [Mass/vol ume] in Blood Estimated from glycated hemoglobinon 03-26-2024 Average glucose Estimated from glycated hemoglobin (Bld) [Mass/Vol] 275 mg/dL [facility] Hematocrit Auto (Bld) [Volum e fraction]on 03-26-2024 Hematocrit (Bld) [Volume fraction] 40.1 % 36.0-48.0 [facility] Hemoglobin [Mass/volume] in Bloodon 03-26-2024 Hemoglobin (Bld) [Mass/Vol] 12.7 g/dL 12.0-16.0 [facility] Laboratory - Chemistry and C hemistry - challengeon 03-26-2024 Calcium [Mass/Vol] 9.1 mg/dL 8.5-10.1 [facility] Chloride [Moles/Vol] 102 mmol/L 98-107 [facility] CO2 [Moles/Vol] 28.5 mmol/L 21.0-32.0 [facility] Creatinine [Mass/Vol] 1.14 mg/dL 0.55-1.02 [facility] Free T4 [Mass/Vol] 1.29 ng/dL 0.76-1.46 [facility] GFR/1.73 sq M.predicted MDRD (S/P/Bld) [Vol rate/Area] 56 mL/min/{1.73_m2} >=60 [facility] Glucose [Mass/Vol] 246 mg/dL 74-106 [facility] Natriuretic peptide B (Bld) [Mass/Vol] 2890.0 pg/mL <=1800.0 [facility] Comment on above: RESULTS CALLED TO YOEL TAI RN @BY Alla Kunz 0556 Potassium [Moles/Vol] 4.3 mmol/L 3.5-5.1 [facility] Sodium [Moles/Vol] 136 mmol/L 136-145 [facility] TSH Qn 6.001 m[IU]/L 0.358-3.740 [facility] Urea nitrogen [Mass/Vol] 35.0 mg/dL 7.0-18.0 [facility] Urea nitrogen/Creatinine [Mass ratio] 30.7 mg/mg [facility] Laboratory - Hematology and Cell countson 03-26-2024 HbA1c (Bld) [Mass fraction] 11.2 % 4.5-6.2 [facility] Comment on above: ADA RECOMMENDED LIMI T 4.0 - 6.0ADA THERAPEUTIC TARGET < 7.0ACTION SUGGESTED> 7.0 Immature granulocytes/100 WBC (Bld) 0.2 % 0.0-0.5 [facility] Leukocytes [#/volume] correc gali for nucleated erythrocytes in Blood by Automated counon 03-26-2024 WBC corrected for nucl RBC Auto (Bld) [#/Vol] 8.3 10 3/uL 4.0-11.0 [facility] Lymphocytes Auto (Bld) [#/Vo l]on 03-26-2024 Lymphocytes (Bld) [#/Vol] 1.4 10 3/uL 1.2-3.8 [facility] Lymphocytes/100 WBC Auto (Bl d)on 03-26-2024 Lymphocytes/100 WBC (Bld) 16.5 % 20.5-60.0 [facility] MCH Auto (RBC) [Entitic mass ]on 03-26-2024 MCH (RBC) [Entitic mass] 29.1 pg 26.7-34.0 [facility] MCHC Auto (RBC) [Mass/Vol]on 03-26-2024 MCHC (RBC) [Mass/Vol] 31.7 g/dL 29.9-35.2 [facility] MCV Auto (RBC) [Entitic vol] on 03-26-2024 MCV (RBC) [Entitic vol] 92.0 fL 81.0-99.0 [facility] Monocytes Auto (Bld) [#/Vol] on 03-26-2024 Monocytes (Bld) [#/Vol] 0.7 10 3/uL 0.3-0.8 [facility] Monocytes/100 WBC Auto (Bld) on 03-26-2024 Monocytes/100 WBC (Bld) 7.9 % 1.7-12.0 [facility] Neutrophils Auto (Bld) [#/Vo l]on 03-26-2024 Neutrophils (Bld) [#/Vol] 6.1 10 3/uL 1.4-6.5 [facility] Neutrophils/100 WBC Auto (Bl d)on 03-26-2024 Neutrophils/100 WBC (Bld) 73.4 % 43.0-75.0 [facility] No Panel Informationon 03-26 Eosinophils # (Auto) 0.1 10 3/uL 0.0-0.7 [facility] Immature Granulocyte # (Auto) 0.02 10 3/uL 0.00-0.03 [facility] Troponin I High Sensitivity 12.4 pg/mL 4.0-51.3 [facility] Comment on above: CUT-OFF POINTS HAVE BEEN [...] volume (Bld) [Entitic vol] 10.8 fL 9.5-13.5 [facility] Platelets Auto (Bld) [#/Vol] on 03-26-2024 Platelets (Bld) [#/Vol] 225 10 3/uL 150-450 [facility] RBC Auto (Bld) [#/Vol]on RBC (Bld) [#/Vol] 4.36 10 6/uL 4.20-5.40 [facility] Serum or plasma anion gap de terminationon 03-26-2024 Anion gap [Moles/Vol] 9.8 mmol/L [facility] MR cervical spine wo conon 0 03-13-2024 MR cervical spine wo con [facility] [place] [address] MRI Report Signed Patient: Joe Call MR#: [id number] 0 : 1945 Acct:[id number] Age/Sex: 78 / F ADM Date: 03/13/24 Loc: [facility] Room: Type: [facility] Attending Dr: Eloina Hussein MD [...] Jarred Randolph M.D.03/13/2024 3:47 PM Dictation Location: [place] [address] Transcribed By: [facility] 03/13/24 1547 Dictated By: Jarred Randolph DO 03/13/24 154 Signed By: 03/13/24 1547 Normal [facility] XR pre/post mri xrayon 03-13 XR pre/post mri xray [facility] [place] [address] MRI Report Signed Patient: Joe Call MR#: [id number] 0 : 1945 Acct:[id number] Age/Sex: 78 / F ADM Date: 03/13/24 Loc: [facility] Room: Type: [facility] Attending Dr: Eloina Hussein MD Copies to: Eloina Mullins MD Ordering Provider: Eloina Mullins MD Date of Service: 03/13/24 MR/MR lumbar spine wo con: M54.50 ([id number]) XR/XR pre/post mri xray: M54.50 MRI Lumbar [...] Jarred Randolph M.D.03/13/2024 3:58 PM Dictation Location: [place] [address] Transcribed By: [facility] 03/13/24 1558 Dictated By: Jarred Randolph DO 03/13/24 1551 Signed By: 03/13/24 1558 Normal [facility] Office Visiton 03-07-2024 Follow-up visit [id number] Joe Call 1945 F Date Provider Department Center 03/07/2024 RICA DEAN LOVE Bruno Family History Problem Relation Age of Onset Coronary artery disease Other Diabetes Other Polycystic kidney disease Other Family Status - Relation Status Age at Other Level of Service:87444 DC OFFICE/OUTPATIENT ESTABLISHED MOD MDM 30 MIN Reason for Visit and Comments: Follow-up [416580] - 6 month [facility] Office Visiton 08-17-2023 Follow-up visit [id number] BassemJoe 1945 Date Provider Department Center 08/17/2023 [id number] [place] LOVE Bruno Family History Problem Relation Age of Onset Coronary artery disease Other Diabetes Other Polycystic kidney disease Other Family Status - Relation Status Age at Other Level of Service:18951 DC OFFICE/OUTPATIENT ESTABLISHED MOD MDM 30-39 MIN [facility] 36on 07-25-2023 36 Pt informed [facility] 36on 07-24-2023 37 She does not need to drink 4 bottle of water. She needs to maintain a 2 L fluid restriction. This includes all fluid not just water. In regards to sleep, I told her she would need to discuss that with her PCP. Thanks. [facility] Office Visiton 07-23-2023 Follow-up visit [id number] Joe Call 1945 Provider Department Center 07/23/2023 [id number] [place] LOVE Bruno Family History Problem Relation Age of Onset Coronary artery disease Other Diabetes Other Polycystic kidney disease Other Family Status - Relation Status Age at Other Level of Service:91626 DC OFFICE/OUTPATIENT ESTABLISHED MOD MDM 30-39 MIN [facility] Office Visiton 04-25-2023 Follow-up visit [id number] BassemJoe 1945 Date Provider Department Center 04/25/2023 RICA DEAN LOVE Bruno Family History Problem Relation Age of Onset Coronary artery disease Other Diabetes Other Polycystic kidney disease Other Family Status - Relation Status Age at Other Level of Service:39141 DC OFFICE/OUTPATIENT ESTABLISHED MOD MDM 30-39 MIN Reason for Visit and Comments: Atrial Fibrillation [80] Congestive Heart Failure [127] Hypertension [748815] [facility] GI PANEL (PCR)on 03-06-2023 Adenovirus F 40/41 Not detected Normal NOT DETECTED [facility] Comment on above: Performed By: #### P OCGLUC #### [facility] [address] [place] [address] Dr. Kasia Nath Astrovirus Not detected Normal NOT DETECTED [facility] Comment on above: Performed By: #### P OCGLUC #### [facility] [address] [place] [address] Dr. Kasia Nath C. Diff toxin A/B Detected Critically abnormal NOT DETECTED [facility] Comment on above: Performed By: #### P OCGLUC #### [facility] [address] [place] [address] Dr. Kasia Nath Campylobacter Detected Critically abnormal NOT DETECTED [facility] Comment on above: Performed By: #### P OCGLUC #### [facility] [address] [place] [address] Dr. Kasia Nath Cryptosporidium Not detected Normal NOT DETECTED [facility] Comment on above: Performed By: #### P OCGLUC #### [facility] [address] [place] [address] Dr. Kasia Nath Cyclos. Cayetanensis Not detected Normal NOT DETECTED [facility] Comment on above: Performed By: #### P OCGLUC #### [facility] [address] [place] [address] Dr. Kasia Nath E. Coli O157 Not Applicable Normal Not Applicable [facility] Comment on above: Performed By: #### P OCGLUC #### [facility] [address] [place] [address] Dr. Kasia Nath E. histolytica Not detected Normal NOT DETECTED [facility] Comment on above: Performed By: #### P OCGLUC #### [facility] [address] [place] [address] Dr. Kasia Nath EAEC Not detected Normal NOT DETECTED [facility] Comment on above: Performed By: #### P OCGLUC #### [facility] [address] [place] [address] Dr. Kasia Nath EIEC Not detected Normal NOT DETECTED [facility] Comment on above: Performed By: #### P OCGLUC #### [facility] [address] [place] [address] Dr. Kasia Nath EPEC Not detected Normal NOT DETECTED [facility] Comment on above: Performed By: #### P OCGLUC #### [facility] [address] [address] [address] Kasia Nath ETEC Not detected Normal NOT DETECTED [facility] Comment on above: Performed By: #### P OCGLUC #### [facility] [address] [address] [address] Kasia Cramer. Lamblia Not detected Normal NOT DETECTED [facility] Comment on above: Performed By: #### P OCGLUC #### [facility] [address] [address] [address] Kasia KHAN CONTROLS PASSED Normal The [facility] Comment on above: Performed By: #### P OCGLUC #### [facility] [address] [address] [address] Kasia FRAIRE HEADER GI PANEL BACTERIA Normal T [facility] Comment on above: Performed By: #### P OCGLUC #### [facility] [address] [address] [address] Kasia GE ECOLI GI PANEL DIARRHEAGENIC E.COLI / SHIGELLA Normal [facility] Comment on above: Performed By: #### P OCGLUC #### [facility] [address] [address] [address] Kasia GE INFO SEE BELOW Normal [facility] Comment on above: Result Comment: EAEC - Enteroaggregative E. Coli EPEC- Enteropathogenic E. Coli ETEC- Enterotoxigenic E. Coli lt/st STEC- Shigella-like toxin-producing E. Coli stx1/stx2 EIEC- Shigella/Enteroinvasive E. Coli Performed By: #### P OCGLUC #### [facility] [address] [address] [address] Kasia GE PARASITES GI PANEL PARASITES Normal [facility] Comment on above: Performed By: #### P OCGLUC #### [facility] [address] [address] [address] Kasia GE VIRUS GI PANEL VIRUSES Normal [facility] Comment on above: Performed By: #### P OCGLUC #### [facility] [address] [place] [address] Dr. Kasia Nath Norovirus GI/GII Not detected Normal NOT DETECTED [facility] Comment on above: Performed By: #### P OCGLUC #### [facility] [address] [place] [address] Dr. Kasia Garland. Shigelloides Not detected Normal NOT DETECTED The [facility] Comment on above: Performed By: #### P OCGLUC #### [facility] [address] [place] [address] Dr. Kasia Nath Rotavirus A Not detected Normal NOT DETECTED [facility] Comment on above: Performed By: #### P OCGLUC #### [facility] [address] [place] [address] Dr. Kasia Nath Salmonella Not detected Normal NOT DETECTED [facility] Comment on above: Performed By: #### P OCGLUC #### [facility] [address] [place] [address] Dr. Kasia Nath Sapovirus Not detected Normal NOT DETECTED [facility] Comment on above: Performed By: #### P OCGLUC #### [facility] [address] [place] [address] Dr. Kasia Nath STEC Not detected Normal NOT DETECTED [facility] Comment on above: Performed By: #### P OCGLUC #### [facility] [address] [place] [address] Dr. Kasia Nath Vibrio Not detected Normal NOT DETECTED [facility] Comment on above: Performed By: #### P OCGLUC #### [facility] [address] [place] [address] Dr. Kasia Nath Vibrio Cholera Not detected Normal NOT DETECTED [facility] Comment on above: Performed By: #### P OCGLUC #### [facility] [address] [place] [address] Dr. Kasia Nath Y. Enterocolitica Not detected Normal NOT DETECTED [facility] Comment on above: Performed By: #### P OCGLUC #### [facility] [address] [place] [address] Dr. Kasia Nath CBC AUTO DIFFon 02-14-2023 BASO # 0.0 103/ul Normal 0.0-0.1 [facility] Comment on above: Performed By: #### P OCGLUC #### [facility] [address] [address] [address] Kasia Nath Basophils/100 WBC (Bld) 0.5 % Normal 0.2-2.0 [facility] Comment on above: Performed By: #### P OCGLUC #### [facility] [address] [address] [address] Kasia Nath EO # 0.2 103/ul Normal 0.0-0.7 [facility] Comment on above: Performed By: #### P OCGLUC #### [facility] [address] [place] [address] Dr. Kasia Nath Eosinophils/100 WBC (Bld) 2.7 % Normal 0.9-7.0 [facility] Comment on above: Performed By: #### P OCGLUC #### [facility] [address] [place] [address] Dr. Kasia Nath Erythrocyte distribution width (RBC) [Ratio] 13.0 % Normal 11.0-15.0 [facility] Comment on above: Performed By: #### P OCGLUC #### [facility] [address] [place] [address] Dr. Kasia Nath Hematocrit (Bld) [Volume fraction] 35.9 % Critically low 36.0-48.0 [facility] Comment on above: Performed By: #### P OCGLUC #### [facility] [address] [place] [address] Dr. Kasia Nath Hemoglobin (Bld) [Mass/Vol] 12.0 g/dL Normal 12.0-16.0 [facility] Comment on above: Performed By: #### P OCGLUC #### [facility] [address] [place] [address] Dr. Kasia Nath IG # 0.02 10e3/ul Normal 0.00-0.03 [facility] Comment on above: Performed By: #### P OCGLUC #### [facility] [address] [place] [address] Dr. Kasia Nath IG % 0.3 % Normal 0.0-0.5 [facility] Comment on above: Performed By: #### P OCGLUC #### [facility] [address] [place] [address] Dr. Kasia Nath LYMPH # 1.8 103/ul Normal 1.2-3.8 [facility] Comment on above: Performed By: #### P OCGLUC #### [facility] [address] [place] [address] Dr. Kasia Nath Lymphocytes/100 WBC (Bld) 22.8 % Normal 20.5-60.0 [facility] Comment on above: Performed By: #### P OCGLUC #### [facility] [address] [place] [address] Dr. Kasia Nath MANUAL DIFF REQ NO Normal [facility] Comment on above: Performed By: #### P OCGLUC #### [facility] [address] [place] [address] Dr. Kasia Nath MCH (RBC) [Entitic mass] 29.4 pg Normal 26.7-34.0 [facility] Comment on above: Performed By: #### P OCGLUC #### [facility] [address] [place] [address] Dr. Kasia Nath MCHC (RBC) [Mass/Vol] 33.4 g/dL Normal 29.9-35.2 [facility] Comment on above: Performed By: #### P OCGLUC #### [facility] [address] [place] [address] Dr. Kasia Nath MCV (RBC) [Entitic vol] 88.0 fL Normal 81.0-99.0 [facility] Comment on above: Performed By: #### P OCGLUC #### [facility] [address] [place] [address] Dr. Kasia Nath MONO # 0.7 103/ul Normal 0.3-0.8 [facility] Comment on above: Performed By: #### P OCGLUC #### [facility] [address] [place] [address] Dr. Kasia Nath Monocytes/100 WBC (Bld) 9.3 % Normal 1.7-12.0 [facility] Comment on above: Performed By: #### P OCGLUC #### [facility] [address] [address] [address] Kasia Nath NEUT # 5.1 103/ul Normal 1.4-6.5 [facility] Comment on above: Performed By: #### P OCGLUC #### [facility] [address] [address] [address] Kasia Nath Neutrophils/100 WBC (Bld) 64.4 % Normal 43.0-75.0 [facility] Comment on above: Performed By: #### P OCGLUC #### [facility] [address] [address] [address] Kasia Nath Platelet mean volume (Bld) [Entitic vol] 11.7 fL Normal 9.5-13.5 [facility] Comment on above: Performed By: #### P OCGLUC #### [facility] [address] [place] [address] Dr. Kasia Nath PLT 175 103/ul Normal 150-450 [facility] Comment on above: Performed By: #### P OCGLUC #### [facility] [address] [address] [address] Kasia Naht RBC 4.08 106/ul Critically low 4.20-5.40 [facility] Comment on above: Performed By: #### P OCGLUC #### [facility] [address] [address] [address] Kasia Nath WBC 7.9 103/ul Normal 4.0-11.0 [facility] Comment on above: Performed By: #### P OCGLUC #### [facility] [address] [address] [address] Kasia Nath LIPASEon 02-14-2023 Lipase [Catalytic activity/Vol] 51.0 U/L Critically low 73.0-393.0 [facility] Comment on above: Performed By: #### L IPA, CMP ####[facility] [address] [address]Dr. Kasia Nath PROF 14(COMP METB)on 023 Albumin [Mass/Vol] 2.8 g/dL Critically low 3.4-5.0 Th [facility] Comment on above: Performed By: #### L IPA, CMP ####[facility] [address] [address]Dr. Kasia Nath Albumin/Globulin [Mass ratio] 0.7 {ratio} Normal [facility] Comment on above: Performed By: #### L IPA, CMP ####[facility] [address] [address]Dr. Kasia Nath ALP [Catalytic activity/Vol] 90 U/L Normal 46-116 [facility] Comment on above: Performed By: #### L IPA, CMP ####[facility] [address] [address]Dr. Kasia Nath ALT [Catalytic activity/Vol] 15 U/L Normal 14-59 [facility] Comment on above: Performed By: #### L IPA, CMP ####[facility] [address] [address]Dr. Kasia Nath Anion gap [Moles/Vol] 15.6 mmol/L Normal [facility] Comment on above: Performed By: #### L IPA, CMP ####[facility] [address] [address]Dr. Kasia Nath AST [Catalytic activity/Vol] 9 U/L Critically low 15-37 [facility] Comment on above: Performed By: #### L IPA, CMP ####[facility] [address] [address]Dr. Kasia Nath Bilirubin [Mass/Vol] 0.4 mg/dL Normal 0.2-1.0 [facility] Comment on above: Performed By: #### L IPA, CMP ####[facility] [address] [address]Dr. Kasia Nath Calcium [Mass/Vol] 9.1 mg/dL Normal 8.5-10.1 [facility] Comment on above: Performed By: #### L IPA, CMP ####[facility] [address] [address]Dr. Kasia Nath Chloride [Moles/Vol] 104 mmol/L Normal 98-107 [facility] Comment on above: Performed By: #### L IPA, CMP ####[facility] [address] [address]Dr. Kasia Nath CO2 [Moles/Vol] 17.0 mmol/L Critically low 21.0-32.0 [facility] Comment on above: Performed By: #### L IPA, CMP ####[facility] [address] [place], [place] [address]Dr. Kasia Nath Creatinine [Mass/Vol] 1.78 mg/dL Critically high 0.55-1.02 [facility] Comment on above: Performed By: #### L IPA, CMP ####[facility] [address] [place], [place] [address]Dr. Kasia Portillo EGFR-AF IVORIAN 34 mL/min/1.73m2 Critically low >=60 [facility] Comment on above: Performed By: #### L IPA, CMP ####[facility] [address] [place], [place] [address]Dr. Kasia Portillo EGFR-NON AF IVORIAN 28 mL/min/1.73m2 Critically low >=60 [facility] Comment on above: Performed By: #### L IPA, CMP ####[facility] [address] [place], [place] [address]Dr. Kasia Portillo Globulin (S) [Mass/Vol] 4.3 g/dL Normal [facility] Comment on above: Performed By: #### L IPA, CMP ####[facility] [address] [place], [place] [address]Dr. Kasia Portillo Glucose [Mass/Vol] 248 mg/dL Critically high 74-106 T [facility] Comment on above: Performed By: #### L IPA, CMP ####[facility] [address] [place], [place] [address]Dr. Fartuncristy Nath Potassium [Moles/Vol] 4.6 mmol/L Normal 3.5-5.1 [facility] Comment on above: Performed By: #### L IPA, CMP ####[facility] [address] [place], [place] [address]Dr. Kasia Nath Protein [Mass/Vol] 7.1 g/dL Normal 6.4-8.2 [facility] Comment on above: Performed By: #### L IPA, CMP ####[facility] [address] [place], [place] [address]Dr. Kasia Nath Sodium [Moles/Vol] 132 mmol/L Critically low 136-145 Th [facility] Comment on above: Performed By: #### L IPA, CMP ####[facility] [address] [place], [place] [address]Dr. Kasia Nath Urea nitrogen [Mass/Vol] 78.0 mg/dL Critically high 7.0-18.0 [facility] Comment on above: Performed By: #### L IPA, CMP ####[facility] [address] [place], [place] [address]Dr. Kasia Nath Urea nitrogen/Creatinine [Mass ratio] 43.8 mg/mg Normal [facility] Comment on above: Performed By: #### L IPA, CMP ####[facility] [address] [place], [place] [address]Dr. Kasia Nath CBC AUTO DIFFon 02-13-2023 BASO # 0.0 103/ul Normal 0.0-0.1 [facility] Comment on above: Performed By: #### C BC ####[facility] [address] [place], [place] [address]Dr. Kasia Nath Basophils/100 WBC (Bld) 0.5 % Normal 0.2-2.0 [facility] Comment on above: Performed By: #### C BC ####[facility] [address] [place], [place] [address]Dr. Kasia Nath EO # 0.1 103/ul Normal 0.0-0.7 [facility] Comment on above: Performed By: #### C BC ####[facility] [address] [place], [place] [address]Dr. Kasia Nath Eosinophils/100 WBC (Bld) 1.0 % Normal 0.9-7.0 [facility] Comment on above: Performed By: #### C BC ####[facility] [address] [place], [place] [address]Dr. Kasia Nath Erythrocyte distribution width (RBC) [Ratio] 12.8 % Normal 11.0-15.0 [facility] Comment on above: Performed By: #### C BC ####[facility] [address] [place], [place] [address]Dr. Kasia Nath Hematocrit (Bld) [Volume fraction] 38.5 % Normal 36.0-48.0 [facility] Comment on above: Performed By: #### C BC ####[facility] [address] [place], [place] [address]Dr. Kasia Nath Hemoglobin (Bld) [Mass/Vol] 13.0 g/dL Normal 12.0-16.0 [facility] Comment on above: Performed By: #### C BC ####[facility] [address] [place], [place] [address]Dr. Kasia Nath IG # 0.02 10e3/ul Normal 0.00-0.03 [facility] Comment on above: Performed By: #### C BC ####[facility] [address] [place], [place] [address]Dr. Kasia Nath IG % 0.2 % Normal 0.0-0.5 [facility] Comment on above: Performed By: #### C BC ####[facility] [address] [place], [place] [address]Dr. Kasia Nath LYMPH # 0.9 103/ul Critically low 1.2-3.[address] [facility] Comment on above: Performed By: #### C BC ####[facility] [address] [place], [place] [address]Dr. Kasia Nath Lymphocytes/100 WBC (Bld) 10.0 % Critically low 20.5-60.0 [facility] Comment on above: Performed By: #### C BC ####[facility] [address] [place], [place] [address]Dr. Fartuncristy Nath MANUAL DIFF REQ NO Normal [facility] Comment on above: Performed By: #### C BC ####[facility] [address] [address]Dr. Kasia Portillo MCH (RBC) [Entitic mass] 29.5 pg Normal 26.7-34.0 [facility] Comment on above: Performed By: #### C BC ####[facility] [address] [place], [place] [address]Dr. Kasia Portillo MCHC (RBC) [Mass/Vol] 33.8 g/dL Normal 29.9-35.2 [facility] Comment on above: Performed By: #### C BC ####[facility] [address] [place], [place] [address]Dr. Fartuncristy Nath MCV (RBC) [Entitic vol] 87.5 fL Normal 81.0-99.0 [facility] Comment on above: Performed By: #### C BC ####[facility] [address] [place], [place] [address]Dr. Kasia Nath MONO # 0.5 103/ul Normal 0.3-0.8 [facility] Comment on above: Performed By: #### C BC ####[facility] [address] [place], [place] [address]Dr. Kasia Nath Monocytes/100 WBC (Bld) 5.7 % Normal 1.7-12.0 [facility] Comment on above: Performed By: #### C BC ####[facility] [address] [place], [place] [address]DrDoreen Nath NEUT # 7.2 103/ul Critically high 1.4-6.5 [facility] Comment on above: Performed By: #### C BC ####[facility] [address] [place], [place] [address]DrDoreen Nath Neutrophils/100 WBC (Bld) 82.6 % Critically high 43.0-75.0 [facility] Comment on above: Performed By: #### C BC ####[facility] [address] [place], [place] [address]Dr. Kasia Nath Platelet mean volume (Bld) [Entitic vol] 11.8 fL Normal 9.5-13.5 [facility] Comment on above: Performed By: #### C BC ####[facility] [address] [place], [place] [address]Gm. Kasia Nath PLT 187 103/ul Normal 150-450 [facility] Comment on above: Performed By: #### C BC ####[facility] [address] [place], [place] [address]Qw. Kasia Nath RBC 4.40 106/ul Normal 4.20-5.40 [facility] Comment on above: Performed By: #### C BC ####[facility] [address] [place], [place] [address]Ta. Kasia Nath WBC 8.8 103/ul Normal 4.0-11.0 [facility] Comment on above: Performed By: #### C BC ####[facility] [address] [place], [place] [address]Gd. K[address] Nath CT ABD/PELVIS WO CONon 02-13 [...] JACOB MCCURDY Date: 2023-02-13 14:40 Normal [facility] CULTURE URINEon 02-13-2023 CULTURE URINE Culture Observations : LIGHT GROWTH OF MIXED GENITAL VON. NO POTENTIAL PATHOGENS SEEN. Normal [facility] Comment on above: Performed By: #### U RCX ####[facility] [address] [place], [place] [address]Dr. Kasia Nath Covid-19 PCR ([facility])on SARS-CoV-2 (COVID-19) RNA FERN+probe Ql (Unsp spec) Not detected Normal NOT DETECTED [facility] Comment on above: Result Comment: When [...] for this test is supported by the [employer]ur[employer] Operator of Health and Human Service's declaration [...] used). Performed By: #### P OCGLUC #### [facility] [address] [place], [place] [address] Dr. Kasia Nath GI PANEL (PCR)on 02-13-2023 Adenovirus F 40/41 Not detected Normal NOT DETECTED [facility] Comment on above: Performed By: #### C BC #### [facility] [address] [place] [address] Dr. Kasia Nath Astrovirus Not detected Normal NOT DETECTED [facility] Comment on above: Performed By: #### C BC #### [facility] [address] [place] [address] Dr. Kasia Del Real. Diff toxin A/B Not detected Normal NOT DETECTED [facility] Comment on above: Performed By: #### C BC #### [facility] [address] [place] [address] Dr. Kasia Nath Campylobacter Not detected Normal NOT DETECTED [facility] Comment on above: Performed By: #### C BC #### [facility] [address] [place] [address] Dr. Kasia Nath Cryptosporidium Not detected Normal NOT DETECTED [facility] Comment on above: Performed By: #### C BC #### [facility] [address] [place] [address] Dr. Kasia Nath Cyclos. Cayetanensis Not detected Normal NOT DETECTED [facility] Comment on above: Performed By: #### C BC #### [facility] [address] [place] [address] Dr. Kasia Nath E. Coli O157 Not Applicable Normal Not Applicable [facility] Comment on above: Performed By: #### C BC #### [facility] [address] [place] [address] Dr. Kasia Nath E. histolytica Not detected Normal NOT DETECTED [facility] Comment on above: Performed By: #### C BC #### [facility] [address] [place] [address] Dr. Kasia Nath EAEC Not detected Normal NOT DETECTED [facility] Comment on above: Performed By: #### C BC #### [facility] [address] [place] [address] Dr. Kasia Nath EIEC Not detected Normal NOT DETECTED [facility] Comment on above: Performed By: #### C BC #### [facility] [address] [place] [address] Dr. Kasia Nath EPEC Not detected Normal NOT DETECTED [facility] Comment on above: Performed By: #### C BC #### [facility] [address] [address] [address] Kasia Nath ETEC Not detected Normal NOT DETECTED [facility] Comment on above: Performed By: #### C BC #### [facility] [address] [address] [address] Kasia Nath G. Lamblia Not detected Normal NOT DETECTED [facility] Comment on above: Performed By: #### C BC #### [facility] [address] [address] [address] Kasia KHAN CONTROLS PASSED Normal [facility] Comment on above: Performed By: #### C BC #### [facility] [address] [address] [address] Kasia FRAIRE HEADER GI PANEL BACTERIA Normal T [facility] Comment on above: Performed By: #### C BC #### [facility] [address] [address] [address] Kasia GE ECOLI GI PANEL DIARRHEAGENIC E.COLI / SHIGELLA Normal [facility] Comment on above: Performed By: #### C BC #### [facility] [address] [place] [address] Dr. Kasia GE INFO SEE BELOW [facility] Comment on above: Result Comment: EAEC - Enteroaggregative E. Coli EPEC- Enteropathogenic E. Coli ETEC- Enterotoxigenic E. Coli lt/st STEC- Shigella-like toxin-producing E. Coli stx1/stx2 EIEC- Shigella/Enteroinvasive E. Coli Performed By: #### C BC #### [facility] [address] [place] [address] Dr. Kasia GE PARASITES GI PANEL PARASITES Normal [facility] Comment on above: Performed By: #### C BC #### [facility] [address] [address] [address] Kasia GE VIRUS GI PANEL VIRUSES Normal [facility] Comment on above: Performed By: #### C BC #### [facility] [address] [place] [address] Dr. Kasia Nath Norovirus GI/GII Not detected Normal NOT DETECTED [facility] Comment on above: Performed By: #### C BC #### [facility] [address] [place] [address] Dr. Kasia Garland. Shigelloides Not detected Normal NOT DETECTED The [facility] Comment on above: Performed By: #### C BC #### [facility] [address] [place] [address] Dr. Kasia Nath Rotavirus A Not detected Normal NOT DETECTED [facility] Comment on above: Performed By: #### C BC #### [facility] [address] [place] [address] Dr. Kasia Nath Salmonella Not detected Normal NOT DETECTED [facility] Comment on above: Performed By: #### C BC #### [facility] [address] [place] [address] Dr. Kasia Nath Sapovirus Not detected Normal NOT DETECTED [facility] Comment on above: Performed By: #### C BC #### [facility] [address] [place] [address] Dr. Kasia Nath STEC Not detected Normal NOT DETECTED [facility] Comment on above: Performed By: #### C BC #### [facility] [address] [place] [address] Dr. Kasia Nath Vibrio Not detected Normal NOT DETECTED [facility] Comment on above: Performed By: #### C BC #### [facility] [address] [place] [address] Dr. Kasia Nath Vibrio Cholera Not detected Normal NOT DETECTED [facility] Comment on above: Performed By: #### C BC #### [facility] [address] [place] [address] Dr. Kasia Nath Y. Enterocolitica Not detected Normal NOT DETECTED [facility] Comment on above: Performed By: #### C BC #### [facility] [address] [place] [address] Dr. Kasia Nath LACTATE/LACTIC ACIDon 2022 Lactate [Moles/Vol] 1.7 mmol/L Normal 0.4-2.0 [facility] Comment on above: Performed By: #### L ACT ####[facility] [address] [address]Dr. Kasia Nath LIPASEon 02-13-2023 Lipase [Catalytic activity/Vol] 82.0 U/L Normal 73.0-393.0 [facility] Comment on above: Performed By: #### L IPA, CMP #### [facility] [address] [address] [address] Kasia Nath POINT OF CARE GLUCOSEon Glucose [Mass/Vol] 229 mg/dL Critically high 74-106 [facility] Comment on above: Performed By: #### P OCGLUC #### [facility] [address] [place] [address] Dr. Kasia Nath Glucose [Mass/Vol] 474 mg/dL Critically high 74-106 [facility] Comment on above: Performed By: #### P OCGLUC #### [facility] [address] [place] [address] Dr. Kasia Nath PROF 14(COMP METB)on 023 Albumin [Mass/Vol] 3.4 g/dL Normal 3.4-5.0 [facility] Comment on above: Performed By: #### L IPA, CMP #### [facility] [address] [place] [address] Dr. Kasia Nath Albumin/Globulin [Mass ratio] 0.7 {ratio} Normal [facility] Comment on above: Performed By: #### L IPA, CMP #### [facility] [address] [place] [address] Dr. Kasia Nath ALP [Catalytic activity/Vol] 106 U/L Normal 46-116 [facility] Comment on above: Performed By: #### L IPA, CMP #### [facility] [address] [place] [address] Dr. Kasia Nath ALT [Catalytic activity/Vol] 21 U/L Normal 14-59 [facility] Comment on above: Performed By: #### L IPA, CMP #### [facility] [address] [address] [address] Kasia Nath Anion gap [Moles/Vol] 17.7 mmol/L Normal [facility] Comment on above: Performed By: #### L IPA, CMP #### [facility] [address] [address] [address] Kasia Nath AST [Catalytic activity/Vol] 11 U/L Critically low 15-37 [facility] Comment on above: Performed By: #### L IPA, CMP #### [facility] [address] [address] [address] Kasia Nath Bilirubin [Mass/Vol] 0.5 mg/dL Normal 0.2-1.0 [facility] Comment on above: Performed By: #### L IPA, CMP #### [facility] [address] [place] [address] Dr. Kasia Nath Calcium [Mass/Vol] 9.6 mg/dL Normal 8.5-10.1 [facility] Comment on above: Performed By: #### L IPA, CMP #### [facility] [address] [address] [address] Kasia Nath Chloride [Moles/Vol] 99 mmol/L Normal 98-107 [facility] Comment on above: Performed By: #### L IPA, CMP #### [facility] [address] [address] [address] Kasia Nath CO2 [Moles/Vol] 20.6 mmol/L Critically low 21.0-32.0 [facility] Comment on above: Performed By: #### L IPA, CMP #### [facility] [address] [address] [address] Kasia Nath Creatinine [Mass/Vol] 2.14 mg/dL Critically high 0.55-1.02 [facility] Comment on above: Performed By: #### L IPA, CMP #### [facility] [address] [address] [address] Kasia Nath EGFR-AF IVORIAN 27 mL/min/1.73m2 Critically low >=60 [facility] Comment on above: Performed By: #### L IPA, CMP #### [facility] [address] [address] [address] Kasia Nath EGFR-NON AF IVORIAN 22 mL/min/1.73m2 Critically low >=60 [facility] Comment on above: Performed By: #### L IPA, CMP #### [facility] [address] [address] [address] Kasia Nath Globulin (S) [Mass/Vol] 4.8 g/dL Normal [facility] Comment on above: Performed By: #### L IPA, CMP #### [facility] [address] [address] [address] Kasia Nath Glucose [Mass/Vol] 498 mg/dL Critically high 74-106 [facility] Comment on above: Performed By: #### L IPA, CMP #### [facility] [address] [address] [address] Kasia Nath Potassium [Moles/Vol] 5.3 mmol/L Critically high 3.5-5.1 [facility] Comment on above: Performed By: #### L IPA, CMP #### [facility] [address] [address] [address] Kasia Nath Protein [Mass/Vol] 8.2 g/dL Normal 6.4-8.2 [facility] Comment on above: Performed By: #### L IPA, CMP #### [facility] [address] [address] [address] aKsia Nath Sodium [Moles/Vol] 132 mmol/L Critically low 136-145 [facility] Comment on above: Performed By: #### L IPA, CMP #### [facility] [address] [address] [address] Kasia Nath Urea nitrogen [Mass/Vol] 86.0 mg/dL Critically high 7.0-18.0 [facility] Comment on above: Performed By: #### L IPA, CMP #### [facility] [address] [address] [address] Kasia Nath Urea nitrogen/Creatinine [Mass ratio] 40.2 mg/mg Normal [facility] Comment on above: Performed By: #### L IPA, CMP #### [facility] [address] [address] [address] Kasia Nath UA RANDOM W/MICROSCOPICon BACTERIA TRACE Abnormal NONE SEEN [facility] Comment on above: Performed By: #### U AMIC ####[facility] [address] [address]Dr. Kasia Nath Bilirubin Ql (U) Negative Normal NEGATIVE [facility] Comment on above: Performed By: #### U AMIC ####[facility] [address] [address]Dr. Kasia Nath CAST SEEN Abnormal NONE SEEN [facility] Comment on above: Performed By: #### U AMIC ####[facility] [address] [address]Dr. Kasia Nath Clarity (U) CLEAR Normal CLEAR [facility] Comment on above: Performed By: #### U AMIC ####[facility] [address] [address]Dr. Kasia Nath Color (U) LT. YELLOW Normal YELLOW [facility] Comment on above: Performed By: #### U AMIC ####[facility] [address] [address]Dr. Kasia Nath Crystals LM Nom (Urine sed) NONE SEEN Normal NONE SEEN [facility] Comment on above: Performed By: #### U AMIC ####[facility] [address] [address]Dr. Kasia Nath Epithelial cells LM Ql (Urine sed) FEW Abnormal NONE SEEN /RARE [facility] Comment on above: Performed By: #### U AMIC ####[facility] [address] [address]Dr. Kasia Nath Glucose Ql (U) >1000 Abnormal NEGATIVE [facility] Comment on above: Performed By: #### U AMIC ####[facility] [address] [address]Dr. Kasia Nath Hemoglobin Ql (U) Negative Normal NEGATIVE [facility] Comment on above: Performed By: #### U AMIC ####[facility] [address] [address]Dr. Kasia Nath HYALINE CAST RARE Normal [facility] Comment on above: Performed By: #### U AMIC ####[facility] [address] [address]Dr. Fartuncristy Nath Ketones Ql (U) Negative Normal NEGATIVE [facility] Comment on above: Performed By: #### U AMIC ####[facility] [address] [address]Dr. Kasia Nath LEUKOCYTES Negative Normal NEGATIVE [facility] Comment on above: Performed By: #### U AMIC ####[facility] [address] [address]Dr. Kasia Nath MUCOUS NONE SEEN Normal NONE SEEN [facility] Comment on above: Performed By: #### U AMIC ####[facility] [address] [address]Dr. Kasia Nath Nitrite Ql (U) Negative Normal NEGATIVE [facility] Comment on above: Performed By: #### U AMIC ####[facility] [address] [place], [place] [address]Dr. Kasia Nath pH (U) 5.5 [pH] Normal 5-9 [facility] Comment on above: Performed By: #### U AMIC ####[facility] [address] [address]Dr. Kasia Nath RBC 0-2 Normal 0-2 [facility] Comment on above: Performed By: #### U AMIC ####[facility] [address] [address]Dr. Kasia Nath SPEC GRAVITY 1.015 Normal 1.005-<=1.025 [facility] Comment on above: Performed By: #### U AMIC ####[facility] [address] [address]Dr. Kasia Nath UA PROTEIN TRACE Normal NEGATIVE/ TRACE [facility] Comment on above: Performed By: #### U AMIC ####[facility] [address] [address]Dr. Kasia Nath Urobilinogen Qn (U) 0.2 {Meka'U}/dL Normal 0.2 - 1. 0 [facility] Comment on above: Performed By: #### U AMIC ####[facility] [address] [place], [place] [address]Dr. Kasia Nath WBC 0-2 Abnormal NONE SEEN [facility] Comment on above: Performed By: #### U AMIC ####[facility] [address] [place], [place] [address]Dr. Kasia Nath BNPon 01-16-2023 Natriuretic peptide B (Bld) [Mass/Vol] 1675.0 pg/mL Normal <=1,800.0 [facility] Comment on above: Performed By: #### B NUCLEAR WEAPONS CUSTODIAN, CMP ####[facility] [address] [place], [place] [address]Dr. Kasia Nath PROF 14(COMP METB)on 023 Albumin [Mass/Vol] 3.4 g/dL Normal 3.4-5.0 [facility] Comment on above: Performed By: #### B NUCLEAR WEAP[employer] CUSTODIAN, CMP ####[facility] [address] [place], [place] [address]Dr. Kasia Nath Albumin/Globulin [Mass ratio] 0.8 {ratio} Normal [facility] Comment on above: Performed By: #### B NUCLEAR WEAP[employer] CUSTODIAN, CMP ####[facility] [address] [place], [place] [address]Dr. Kasia Nath ALP [Catalytic activity/Vol] 99 U/L Normal 46-116 [facility] Comment on above: Performed By: #### B NUCLEAR WEAP[employer] CUSTODIAN, CMP ####[facility] [address] [place], [place] [address]Dr. Kasia Nath ALT [Catalytic activity/Vol] 18 U/L Normal 14-59 [facility] Comment on above: Performed By: #### B NUCLEAR WE[employer] CUSTODIAN, CMP ####[facility] [address] [place], [place] [address]Dr. Kasia Nath Anion gap [Moles/Vol] 10.6 mmol/L Normal [facility] Comment on above: Performed By: #### B NUCLEAR WE[employer] CUSTODIAN, CMP ####[facility] [address] [place], [place] [address]Dr. Kasia Nath AST [Catalytic activity/Vol] 15 U/L Normal 15-37 [facility] Comment on above: Performed By: #### B NUCLEAR WE[employer] CUSTODIAN, CMP ####[facility] [address] [place], [place] [address]Dr. Kasia Nath Bilirubin [Mass/Vol] 0.5 mg/dL Normal 0.2-1.0 [facility] Comment on above: Performed By: #### B NUCLEAR WE[employer] CUSTODIAN, CMP ####[facility] [address] [place], [place] [address]Dr. Kasia Nath Calcium [Mass/Vol] 9.1 mg/dL Normal 8.5-10.1 [facility] Comment on above: Performed By: #### B NUCLEAR WEAP[employer] CUSTODIAN, CMP ####[facility] [address] [place], [place] [address]Dr. Kasia Nath Chloride [Moles/Vol] 98 mmol/L Normal 98-107 [facility] Comment on above: Performed By: #### B NUCLEAR WE[employer] CUSTODIAN, CMP ####[facility] [address] [place], [place] [address]Dr. Kasia Nath CO2 [Moles/Vol] 30.4 mmol/L Normal 21.0-32.0 [facility] Comment on above: Performed By: #### B NUCLEAR WEAPONS CUSTODIAN, CMP ####[facility] [address] [place], [place] [address]Dr. Kasia Nath Creatinine [Mass/Vol] 1.44 mg/dL Critically high 0.55-1.02 [facility] Comment on above: Performed By: #### B NUCLEAR WE[employer] CUSTODIAN, CMP ####[facility] X[address] [place], [place] [address]Dr. Kasia Portillo EGFR-AF IVORIAN 43 mL/min/1.73m2 Critically low >=60 [facility] Comment on above: Performed By: #### B NUCLEAR WEAPONS CUSTODIAN, CMP ####[facility] [address] [place], [place] [address]Dr. Yicristy Nath EGFR-NON AF IVORIAN 35 mL/min/1.73m2 Critically low >=60 [facility] Comment on above: Performed By: #### B NUCLEAR WEAPONS CUSTODIAN, CMP ####[facility] [address]cl[address] [place], [place] [address]Dr. Kasia Nath Globulin (S) [Mass/Vol] 4.4 g/dL Normal [facility] Comment on above: Performed By: #### B NUCLEAR WEAPONS CUSTODIAN, CMP ####[facility] [address] [place], [place] [address]Dr. Kasia Nath Glucose [Mass/Vol] 401 mg/dL Critically high 74-106 T [facility] Comment on above: Performed By: #### B NUCLEAR WEAPONS CUSTODIAN, CMP ####[facility] [address]ed[address] [place], [place] [address]Dr. Kasia Nath Potassium [Moles/Vol] 5.0 mmol/L Normal 3.5-5.1 [facility] Comment on above: Performed By: #### B NUCLEAR WEAPONS CUSTODIAN, CMP ####[facility] [address] [place], [place] [address]Dr. Kasia Nath Protein [Mass/Vol] 7.8 g/dL Normal 6.4-8.2 [facility] Comment on above: Performed By: #### B NUCLEAR WEAPONS CUSTODIAN, CMP ####[facility] [address] [place], [place] [address]Dr. Kasia Nath Sodium [Moles/Vol] 134 mmol/L Critically low 136-145 Th [facility] Comment on above: Performed By: #### B NUCLEAR WEAPONS CUSTODIAN, CMP ####[facility] [address] [place], [place] [address]Dr. Kasia Nath Urea nitrogen [Mass/Vol] 46.0 mg/dL Critically high 7.0-18.0 [facility] Comment on above: Performed By: #### B NUCLEAR WEAPONS CUSTODIAN, CMP ####[facility] [address] [place], [place] [address]Dr. Kasia Nath Urea nitrogen/Creatinine [Mass ratio] 31.9 mg/mg Normal [facility] Comment on above: Performed By: #### B NUCLEAR WEAPONS CUSTODIAN, CMP ####[facility] [address] [place] [address] Kasia Nath BNPon 01-05-2023 Natriuretic peptide B (Bld) [Mass/Vol] 1389.0 pg/mL Normal <=1,800.0 [facility] Comment on above: Performed By: #### B NUCLEAR WEAPONS CUSTODIAN, CMADM, CMP ####[facility] [address] [address]Dr. Kasia Nath CARDIAC EMERY ADMITon 023 CK [Catalytic activity/Vol] 138 U/L Normal 26-192 [facility] Comment on above: Performed By: #### B NUCLEAR WEAPONS CUSTODIAN, CMADM, CMP ####[facility] [address] [address]Dr. Kasia Nath CK.MB [Mass/Vol] 2.22 ng/mL Normal <=3.60 [facility] Comment on above: Performed By: #### B NUCLEAR WEAPONS CUSTODIAN, CMADM, CMP ####[facility] [address] [address]Dr. Kasia Nath HSTROP 15.9 pg/mL Normal 4.0-51.3 [facility] Comment on above: Result Comment: CUT- OFF POINTS HAVE BEEN ESTABLISHED BASED ON THE FOURTH UNIVERSAL DEFINITIONS OF MYOCARDIAL INFARCTION. THE UPPER REFERENCE LIMIT (URL) OF TROPONIN, DEFINED THE 99TH PERCENTILE OF cTnI DISTRIBUTION IN A REFERENCE POPULATION, HAS BEEN CONFIRMED THE DECISION THRESHOLD FOR MD DIAGNOSIS. Performed By: #### B NUCLEAR WEAPONS CUSTODIAN, CMADM, CMP ####[facility] [address] [address]DrDoreen Nath GRETTA 178 ng/mL Critically high 9-82 [facility] Comment on above: Performed By: #### B NUCLEAR WEAPONS CUSTODIAN, CMADM, CMP ####[facility] [address] [address]DrDoreen Nath CBC AUTO DIFFon 01-05-2023 BASO # 0.1 103/ul Normal 0.0-0.1 [facility] Comment on above: Performed By: #### C BC #### [facility] [address] [address] [address] Kasia Nath Basophils/100 WBC (Bld) 0.7 % Normal 0.2-2.0 [facility] Comment on above: Performed By: #### C BC #### [facility] [address] [place] [address] Dr. Kasia Nath EO # 0.3 103/ul Normal 0.0-0.7 [facility] Comment on above: Performed By: #### C BC #### [facility] [address] [place] [address] Dr. Kasia Nath Eosinophils/100 WBC (Bld) 2.9 % Normal 0.9-7.0 [facility] Comment on above: Performed By: #### C BC #### [facility] [address] [place] [address] Dr. Kasia Nath Erythrocyte distribution width (RBC) [Ratio] 13.5 % Normal 11.0-15.0 [facility] Comment on above: Performed By: #### C BC #### [facility] [address] [place] [address] Dr. Kasia Nath Hematocrit (Bld) [Volume fraction] 39.8 % Normal 36.0-48.0 [facility] Comment on above: Performed By: #### C BC #### [facility] [address] [place] [address] Dr. Kasia Nath Hemoglobin (Bld) [Mass/Vol] 13.5 g/dL Normal 12.0-16.0 [facility] Comment on above: Performed By: #### C BC #### [facility] [address] [place] [address] Dr. Kasia Nath IG # 0.02 10e3/ul Normal 0.00-0.03 [facility] Comment on above: Performed By: #### C BC #### [facility] [address] [place] [address] Dr. Kasia Nath IG % 0.2 % Normal 0.0-0.5 [facility] Comment on above: Performed By: #### C BC #### [facility] [address] [place] [address] Dr. Kasia Nath LYMPH # 1.9 103/ul Normal 1.2-3.8 [facility] Comment on above: Performed By: #### C BC #### [facility] [address] [place] [address] Dr. Kasia Nath Lymphocytes/100 WBC (Bld) 22.0 % Normal 20.5-60.0 [facility] Comment on above: Performed By: #### C BC #### [facility] [address] [place] [address] Dr. Kasia Nath MANUAL DIFF REQ NO Normal [facility] Comment on above: Performed By: #### C BC #### [facility] [address] [place] [address] Dr. Kasia Nath MCH (RBC) [Entitic mass] 29.8 pg Normal 26.7-34.0 [facility] Comment on above: Performed By: #### C BC #### [facility] [address] [place] [address] Dr. Kasia Nath MCHC (RBC) [Mass/Vol] 33.9 g/dL Normal 29.9-35.2 [facility] Comment on above: Performed By: #### C BC #### [facility] [address] [place] [address] Dr. Kasia Nath MCV (RBC) [Entitic vol] 87.9 fL Normal 81.0-99.0 [facility] Comment on above: Performed By: #### C BC #### [facility] [address] [place] [address] Dr. Kasia Nath MONO # 0.8 103/ul Normal 0.3-0.8 [facility] Comment on above: Performed By: #### C BC #### [facility] [address] [place] [address] Dr. Kasia Nath Monocytes/100 WBC (Bld) 8.8 % Normal 1.7-12.0 [facility] Comment on above: Performed By: #### C BC #### [facility] [address] [place] [address] Dr. Kasia Nath NEUT # 5.6 103/ul Normal 1.4-6.5 [facility] Comment on above: Performed By: #### C BC #### [facility] [address] [address] [address] Kasia aNth Neutrophils/100 WBC (Bld) 65.4 % Normal 43.0-75.0 [facility] Comment on above: Performed By: #### C BC #### [facility] [address] [address] [address] Kasia Nath Platelet mean volume (Bld) [Entitic vol] 10.6 fL Normal 9.5-13.5 [facility] Comment on above: Performed By: #### C BC #### [facility] [address] [address] [address] Kasia Nath PLT 222 103/ul Normal 150-450 [facility] Comment on above: Performed By: #### C BC #### [facility] [address] [place] [address] Dr. Kasia Nath RBC 4.53 106/ul Normal 4.20-5.40 [facility] Comment on above: Performed By: #### C BC #### [facility] [address] [place] [address] Dr. Kasia Nath WBC 8.6 103/ul Normal 4.0-11.0 [facility] Comment on above: Performed By: #### C BC #### [facility] [address] [place] [address] Dr. Kasia Nath PROF 14(COMP METB)on 023 Albumin [Mass/Vol] 3.3 g/dL Critically low 3.4-5.0 [facility] Comment on above: Performed By: #### B NUCLEAR WEAPONS CUSTODIAN, CMADM, CMP #### [facility] [address] [place] [address] Dr. Kasia Nath Albumin/Globulin [Mass ratio] 0.7 {ratio} Normal [facility] Comment on above: Performed By: #### B NUCLEAR WEAPONS CUSTODIAN, CMADM, CMP #### [facility] [address] [place] [address] Dr. Kasia Nath ALP [Catalytic activity/Vol] 106 U/L Normal 46-116 [facility] Comment on above: Performed By: #### B NUCLEAR WEAPONS CUSTODIAN, CMADM, CMP #### [facility] [address] [address] [address] Kasia Nath ALT [Catalytic activity/Vol] 22 U/L Normal 14-59 [facility] Comment on above: Performed By: #### B NUCLEAR WEAPONS CUSTODIAN, CMADM, CMP #### [facility] [address] [address] [address] Kasia Nath Anion gap [Moles/Vol] 12.0 mmol/L Normal [facility] Comment on above: Performed By: #### B NUCLEAR WEAPONS CUSTODIAN, CMADM, CMP #### [facility] [address] [address] [address] Kasia Nath AST [Catalytic activity/Vol] 23 U/L Normal 15-37 [facility] Comment on above: Performed By: #### B NUCLEAR WEAPONS CUSTODIAN, CMADM, CMP #### [facility] [address] [place] [address] Dr. Kasia Nath Bilirubin [Mass/Vol] 0.7 mg/dL Normal 0.2-1.0 [facility] Comment on above: Performed By: #### B NUCLEAR WEAPONS CUSTODIAN, CMADM, CMP #### [facility] [address] [place] [address] Dr. Kasia Nath Calcium [Mass/Vol] 8.8 mg/dL Normal 8.5-10.1 [facility] Comment on above: Performed By: #### B NUCLEAR WEAPONS CUSTODIAN, CMADM, CMP #### [facility] [address] [place] [address] Dr. Kasia Nath Chloride [Moles/Vol] 98 mmol/L Normal 98-107 [facility] Comment on above: Performed By: #### B NUCLEAR WEAPONS CUSTODIAN, CMADM, CMP #### [facility] [address] [place] [address] Dr. Kasia Nath CO2 [Moles/Vol] 30.2 mmol/L Normal 21.0-32.0 [facility] Comment on above: Performed By: #### B NUCLEAR WEAPONS CUSTODIAN, CMADM, CMP #### [facility] [address] [place] [address] Dr. Kasia Nath Creatinine [Mass/Vol] 1.19 mg/dL Critically high 0.55-1.02 [facility] Comment on above: Performed By: #### B NUCLEAR WEAPONS CUSTODIAN, LEONORA, CMP #### [facility] [address] [address] [address] Kasia Nath EGFR-AF IVORIAN 53 mL/min/1.73m2 Critically low >=60 [facility] Comment on above: Performed By: #### B NUCLEAR WEAPONS CUSTODIAN, MACDM, CMP #### [facility] [address] [address] [address] Kasia Nath EGFR-NON AF IVORIAN 44 mL/min/1.73m2 Critically low >=60 [facility] Comment on above: Performed By: #### B NUCLEAR WEAPONS CUSTODIAN, LEONORA, CMP #### [facility] [address] [place] [address] Dr. Kasia Nath Globulin (S) [Mass/Vol] 4.7 g/dL Normal [facility] Comment on above: Performed By: #### B NUCLEAR WEAPONS CUSTODIAN, MACDM, CMP #### [facility] [address] [address] [address] Kasia Nath Glucose [Mass/Vol] 124 mg/dL Critically high 74-106 [facility] Comment on above: Performed By: #### B NUCLEAR WEAPONS CUSTODIANLEONORA, CMP #### [facility] [address] [place] [address] Dr. Kasia Nath Potassium [Moles/Vol] 3.2 mmol/L Critically low 3.5-5.1 [facility] Comment on above: Performed By: #### B NUCLEAR WEAPONS CUSTODIAN, MACDM, CMP #### [facility] [address] [address] [address] Kasia Nath Protein [Mass/Vol] 8.0 g/dL Normal 6.4-8.2 [facility] Comment on above: Performed By: #### B NUCLEAR WEAPONS CUSTODIAN, MACDM, CMP #### [facility] [address] [address] [address] Kasia Nath Sodium [Moles/Vol] 137 mmol/L Normal 136-145 [facility] Comment on above: Performed By: #### B NUCLEAR WEAPONS CUSTODIAN, CMADM, CMP #### [facility] [address] [place], [place] [address] Dr. Kasia Nath Urea nitrogen [Mass/Vol] 29.0 mg/dL Critically high 7.0-18.0 [facility] Comment on above: Performed By: #### B NUCLEAR WEAPONS CUSTODIAN, CMADM, CMP #### [facility] [address] [place], [place] [address] Dr. Kasia Nath Urea nitrogen/Creatinine [Mass ratio] 24.4 mg/mg Normal [facility] Comment on above: Performed By: #### B NUCLEAR WEAPONS CUSTODIAN, CMADM, CMP #### [facility] [address] [place], [place] [address] Dr. Kasia Nath TROPONIN, HIGH SENSITIVITYon 01-05-2023 HSTROP 18.4 pg/mL Normal 4.0-51.3 [facility] Comment on above: Result Comment: CUT- OFF POINTS HAVE BEEN ESTABLISHED BASED ON THE FOURTH UNIVERSAL DEFINITIONS OF MYOCARDIAL INFARCTION. THE UPPER REFERENCE LIMIT (URL) OF TROPONIN, DEFINED THE 99TH PERCENTILE OF cTnI DISTRIBUTION IN A REFERENCE POPULATION, HAS BEEN CONFIRMED THE DECISION THRESHOLD FOR MD DIAGNOSIS. Performed By: #### H STROPN ####[facility] [address] [place], [place] [address]Dr. Kasia Nath XR CHEST 1 Von 01-05-2023 [...] BIN ROJAS Date: 2023-01-05 04:39 Normal [facility] BNPon 01-02-2023 Natriuretic peptide B (Bld) [Mass/Vol] 2583.0 pg/mL Critically high <=1,800.0 [facility] Comment on above: Performed By: #### B NUCLEAR WEAPONS CUSTODIAN, CMP ####[facility] [address] [address]Dr. Kasia Nath CBC AUTO DIFFon 01-02-2023 BASO # 0.1 103/ul Normal 0.0-0.1 [facility] Comment on above: Performed By: #### P OCGLUC #### [facility] [address] [address] [address] Kasia Nath Basophils/100 WBC (Bld) 0.9 % Normal 0.2-2.0 [facility] Comment on above: Performed By: #### P OCGLUC #### [facility] [address] [place] [address] Dr. Kasia Nath EO # 0.2 103/ul Normal 0.0-0.7 [facility] Comment on above: Performed By: #### P OCGLUC #### [facility] [address] [address] [address] Kasia Nath Eosinophils/100 WBC (Bld) 2.3 % Normal 0.9-7.0 [facility] Comment on above: Performed By: #### P OCGLUC #### [facility] [address] [address] [address] Kasia Nath Erythrocyte distribution width (RBC) [Ratio] 13.8 % Normal 11.0-15.0 [facility] Comment on above: Performed By: #### P OCGLUC #### [facility] [address] [address] [address] Kasia Nath Hematocrit (Bld) [Volume fraction] 35.5 % Critically low 36.0-48.0 [facility] Comment on above: Performed By: #### P OCGLUC #### [facility] [address] [place] [address] Dr. Kasia Nath Hemoglobin (Bld) [Mass/Vol] 11.6 g/dL Critically low 12.0-16.0 [facility] Comment on above: Performed By: #### P OCGLUC #### [facility] [address] [address] [address] Kasia Nath IG # 0.02 10e3/ul Normal 0.00-0.03 [facility] Comment on above: Performed By: #### P OCGLUC #### [facility] [address] [address] [address] Kasia Nath IG % 0.3 % Normal 0.0-0.5 [facility] Comment on above: Performed By: #### P OCGLUC #### [facility] [address] [address] [address] Kasia Nath LYMPH # 2.0 103/ul Normal 1.2-3.8 [facility] Comment on above: Performed By: #### P OCGLUC #### [facility] [address] [place] [address] Dr. Kasia Nath Lymphocytes/100 WBC (Bld) 24.8 % Normal 20.5-60.0 [facility] Comment on above: Performed By: #### P OCGLUC #### [facility] [address] [address] [address] Kasia Nath MANUAL DIFF REQ NO Normal [facility] Comment on above: Performed By: #### P OCGLUC #### [facility] [address] [address] [address] Kasia Nath MCH (RBC) [Entitic mass] 28.7 pg Normal 26.7-34.0 [facility] Comment on above: Performed By: #### P OCGLUC #### [facility] [address] [address] [address] Kasia Nath MCHC (RBC) [Mass/Vol] 32.7 g/dL Normal 29.9-35.2 [facility] Comment on above: Performed By: #### P OCGLUC #### [facility] [address] [address] [address] Kasia Nath MCV (RBC) [Entitic vol] 87.9 fL Normal 81.0-99.0 [facility] Comment on above: Performed By: #### P OCGLUC #### [facility] [address] [address] [address] Kasia Nath MONO # 0.8 103/ul Normal 0.3-0.8 [facility] Comment on above: Performed By: #### P OCGLUC #### [facility] [address] [address] [address] Kasia Nath Monocytes/100 WBC (Bld) 9.6 % Normal 1.7-12.0 [facility] Comment on above: Performed By: #### P OCGLUC #### [facility] [address] [address] [address] Kasia Nath NEUT # 5.0 103/ul Normal 1.4-6.5 [facility] Comment on above: Performed By: #### P OCGLUC #### [facility] [address] [address] [address] Kasia Nath Neutrophils/100 WBC (Bld) 62.1 % Normal 43.0-75.0 [facility] Comment on above: Performed By: #### P OCGLUC #### [facility] [address] [address] [address] Kasia Nath Platelet mean volume (Bld) [Entitic vol] 10.7 fL Normal 9.5-13.5 [facility] Comment on above: Performed By: #### P OCGLUC #### [facility] [address] [address] [address] Kasia Nath PLT 204 103/ul Normal 150-450 [facility] Comment on above: Performed By: #### P OCGLUC #### [facility] [address] [address] [address] Kasia Nath RBC 4.04 106/ul Critically low 4.20-5.40 [facility] Comment on above: Performed By: #### P OCGLUC #### [facility] [address] [address] [address] Kasia Nath WBC 8.0 103/ul Normal 4.0-11.0 [facility] Comment on above: Performed By: #### P OCGLUC #### [facility] [address] [address] [address] Kasia Nath GLYCOHEMOGLOBIN A1Con 2022 ADA RECOMMENDATION SEE BELOW Normal [facility] Comment on above: Result Comment: ADA RECOMMENDED LIMIT 4.0 - 6.0 ADA THERAPEUTIC TARGET < 7.0 ACTION SUGGESTED > 7.0 Performed By: #### A 1C ####[facility] [address] [address]Dr. Kasia Nath Glucose [Mass/Vol] 298 mg/dL Normal [facility] Comment on above: Performed By: #### A 1C ####[facility] [address] [address]Dr. Kasia Nath HbA1c (Bld) [Mass fraction] 12.0 % Critically high 4.5-6.2 [facility] Comment on above: Performed By: #### A 1C ####[facility] [address] [place], [place] [address]Dr. Kasia Nath POINT OF CARE GLUCOSEon 12-14 Glucose [Mass/Vol] 227 mg/dL Critically high 74-106 [facility] Comment on above: Performed By: #### C BC #### [facility] [address] [address] [address] Kasia Nath Glucose [Mass/Vol] 214 mg/dL Critically high 74-106 [facility] Comment on above: Performed By: #### C BC #### [facility] [address] [address] [address] Kasia Nath PROF 14(COMP METB)on 023 Albumin [Mass/Vol] 2.6 g/dL Critically low 3.4-5.0 [facility] Comment on above: Performed By: #### B NUCLEAR WEAPONS CUSTODIAN, CMP ####[facility] [address] [address]Dr. Kasia Nath Albumin/Globulin [Mass ratio] 0.6 {ratio} Normal [facility] Comment on above: Performed By: #### B NUCLEAR WEAPONS CUSTODIAN, CMP ####[facility] [address] [address]Dr. Kasia Nath ALP [Catalytic activity/Vol] 94 U/L Normal 46-116 [facility] Comment on above: Performed By: #### B NUCLEAR WEAPONS CUSTODIAN, CMP ####[facility] [address] [place], [place] [address]Dr. Kasia Nath ALT [Catalytic activity/Vol] 16 U/L Normal 14-59 [facility] Comment on above: Performed By: #### B NUCLEAR WEAPONS CUSTODIAN, CMP ####[facility] [address] [place], [place] [address]Dr. Kasia Nath Anion gap [Moles/Vol] 10.6 mmol/L Normal [facility] Comment on above: Performed By: #### B NUCLEAR WEAPONS CUSTODIAN, CMP ####[facility] [address] [place], [place] [address]Dr. Kasia Nath AST [Catalytic activity/Vol] 15 U/L Normal 15-37 [facility] Comment on above: Performed By: #### B NUCLEAR WEAPONS CUSTODIAN, CMP ####[facility] [address] [place], [place] [address]Dr. Kasia Nath Bilirubin [Mass/Vol] 0.8 mg/dL Normal 0.2-1.0 [facility] Comment on above: Performed By: #### B NUCLEAR WEAPONS CUSTODIAN, CMP ####[facility] [address] [place], [place] [address]Dr. Kasia Nath Calcium [Mass/Vol] 8.5 mg/dL Normal 8.5-10.1 [facility] Comment on above: Performed By: #### B NUCLEAR WEAPONS CUSTODIAN, CMP ####[facility] [address] [place], [place] [address]Dr. Kasia Portillo Chloride [Moles/Vol] 102 mmol/L Normal 98-107 [facility] Comment on above: Performed By: #### B NUCLEAR WEAPONS CUSTODIAN, CMP ####[facility] [address] [place], [place] [address]Dr. Kasia Nath CO2 [Moles/Vol] 30.2 mmol/L Normal 21.0-32.0 [facility] Comment on above: Performed By: #### B NUCLEAR WEAPONS CUSTODIAN, CMP ####[facility] [address] [place], [place] [id number]. Kasia Nath Creatinine [Mass/Vol] 0.94 mg/dL Normal 0.55-1.02 [facility] Comment on above: Performed By: #### B NUCLEAR WEAPONS CUSTODIAN, CMP ####[facility] [address] [place], [place] [address]Dr. Kasia Nath EGFR-AF IVORIAN >60 Normal >=60 [facility] Comment on above: Performed By: #### B NUCLEAR WEAPONS CUSTODIAN, CMP ####[facility] [address] [place], [place] [address]Dr. Kasia Nath EGFR-NON AF IVORIAN 58 mL/min/1.73m2 Critically low >=60 [facility] Comment on above: Performed By: #### B NUCLEAR WEAPONS CUSTODIAN, CMP ####[facility] [address] [place], [place] [address]Dr. Kasia Nath Globulin (S) [Mass/Vol] 4.0 g/dL Normal [facility] Comment on above: Performed By: #### B NUCLEAR WEAPONS CUSTODIAN, CMP ####[facility] [address] [place], [place] [address]Dr. Kasia Nath Glucose [Mass/Vol] 150 mg/dL Critically high 74-106 [facility] Comment on above: Performed By: #### B NUCLEAR WEAPONS CUSTODIAN, CMP ####[facility] [address] [place], [place] [address]Dr. Kasia Nath Potassium [Moles/Vol] 3.8 mmol/L Normal 3.5-5.1 [facility] Comment on above: Performed By: #### B NUCLEAR WEAPONS CUSTODIAN, CMP ####[facility] [address] [place], [place] [address]Dr. Kasia Nath Protein [Mass/Vol] 6.6 g/dL Normal 6.4-8.2 [facility] Comment on above: Performed By: #### B NUCLEAR WEAPONS CUSTODIAN, CMP ####[facility] [address] [place], [place] [address]Dr. Kasia Nath Sodium [Moles/Vol] 139 mmol/L Normal 136-145 [facility] Comment on above: Performed By: #### B NUCLEAR WEAPONS CUSTODIAN, CMP ####[facility] [address] [place], [place] [address]Dr. Kasia Nath Urea nitrogen [Mass/Vol] 24.0 mg/dL Critically high 7.0-18.0 [facility] Comment on above: Performed By: #### B NUCLEAR WEAPONS CUSTODIAN, CMP ####[facility] [address] [place], [place] [address]WxDoreen Nath Urea nitrogen/Creatinine [Mass ratio] 25.5 mg/mg Normal [facility] Comment on above: Performed By: #### B NUCLEAR WEAPONS CUSTODIAN, CMP ####[facility] [address] [place], [place] [address]Dr. Kasia Nath BNPon 01-01-2023 Natriuretic peptide B (Bld) [Mass/Vol] 1419.0 pg/mL Normal <=1,800.0 [facility] Comment on above: Performed By: #### B NUCLEAR WEAPONS CUSTODIAN #### [facility] [address] [place] [address] Dr. Kasia Nath CARDIAC EMERY 3-6on 3 CK [Catalytic activity/Vol] 80 U/L Normal 26-192 [facility] Comment on above: Performed By: #### P OCGLUC #### [facility] [address] [place] [address] Dr. Kasia Nath CK.MB [Mass/Vol] 1.85 ng/mL Normal <=3.60 [facility] Comment on above: Performed By: #### P OCGLUC #### [facility] [address] [place] [address] Dr. Kasia Nath HSTROP 13.2 pg/mL Normal 4.0-51.3 [facility] Comment on above: Result Comment: CUT- OFF POINTS HAVE BEEN ESTABLISHED BASED ON THE FOURTH UNIVERSAL DEFINITIONS OF MYOCARDIAL INFARCTION. THE UPPER REFERENCE LIMIT (URL) OF TROPONIN, DEFINED THE 99TH PERCENTILE OF cTnI DISTRIBUTION IN A REFERENCE POPULATION, HAS BEEN CONFIRMED THE DECISION THRESHOLD FOR MD DIAGNOSIS. Performed By: #### P OCGLUC #### [facility] [address] [place] [address] Dr. Kasia Nath CK [Catalytic activity/Vol] 73 U/L Normal 26-192 [facility] Comment on above: Performed By: #### P OCGLUC #### [facility] [address] [address] [address] Kasia Nath CK.MB [Mass/Vol] 1.71 ng/mL Normal <=3.60 [facility] Comment on above: Performed By: #### P OCGLUC #### [facility] [address] [place] [address] Dr. Kasia Nath HSTROP 13.6 pg/mL Normal 4.0-51.3 [facility] Comment on above: Result Comment: CUT- OFF POINTS HAVE BEEN ESTABLISHED BASED ON THE FOURTH UNIVERSAL DEFINITIONS OF MYOCARDIAL INFARCTION. THE UPPER REFERENCE LIMIT (URL) OF TROPONIN, DEFINED THE 99TH PERCENTILE OF cTnI DISTRIBUTION IN A REFERENCE POPULATION, HAS BEEN CONFIRMED THE DECISION THRESHOLD FOR MD DIAGNOSIS. Performed By: #### P OCGLUC #### [facility] [address] [place] [address] Dr. Kasia Nath CARDIAC EMERY ADMITon 023 CK [Catalytic activity/Vol] 71 U/L Normal 26-192 [facility] Comment on above: Performed By: #### C BC #### [facility] [address] [place] [address] Dr. Kasia Nath CK.MB [Mass/Vol] 1.69 ng/mL Normal <=3.60 [facility] Comment on above: Performed By: #### C BC #### [facility] [address] [place] [address] Dr. Kasia Nath HSTROP 13.0 pg/mL Normal 4.0-51.3 [facility] Comment on above: Result Comment: CUT- OFF POINTS HAVE BEEN ESTABLISHED BASED ON THE FOURTH UNIVERSAL DEFINITIONS OF MYOCARDIAL INFARCTION. THE UPPER REFERENCE LIMIT (URL) OF TROPONIN, DEFINED THE 99TH PERCENTILE OF cTnI DISTRIBUTION IN A REFERENCE POPULATION, HAS BEEN CONFIRMED THE DECISION THRESHOLD FOR MD DIAGNOSIS. Performed By: #### C BC #### [facility] [address] [place] [address] Dr. Kasia Nath GRETTA 75 ng/mL Normal 9-82 [facility] Comment on above: Performed By: #### C BC #### [facility] [address] [place] [address] Dr. Kasia Nath CBC AUTO DIFFon 01-01-2023 BASO # 0.1 103/ul Normal 0.0-0.1 [facility] Comment on above: Performed By: #### C BC #### [facility] [address] [place] [address] Dr. Kasia Nath Basophils/100 WBC (Bld) 1.1 % Normal 0.2-2.0 [facility] Comment on above: Performed By: #### C BC #### [facility] [address] [place] [address] Dr. Kasia Nath EO # 0.2 103/ul Normal 0.0-0.7 [facility] Comment on above: Performed By: #### C BC #### [facility] [address] [place] [address] Dr. Kasia Nath Eosinophils/100 WBC (Bld) 2.9 % Normal 0.9-7.0 [facility] Comment on above: Performed By: #### C BC #### [facility] [address] [place] [address] Dr. Kasia Nath Erythrocyte distribution width (RBC) [Ratio] 13.8 % Normal 11.0-15.0 [facility] Comment on above: Performed By: #### C BC #### [facility] [address] [place] [address] Dr. Kasia Nath Hematocrit (Bld) [Volume fraction] 36.2 % Normal 36.0-48.0 [facility] Comment on above: Performed By: #### C BC #### [facility] [address] [place] [address] Dr. Kasia Nath Hemoglobin (Bld) [Mass/Vol] 12.1 g/dL Normal 12.0-16.0 [facility] Comment on above: Performed By: #### C BC #### [facility] [address] [place] [address] Dr. Kasia Nath IG # 0.02 10e3/ul Normal 0.00-0.03 [facility] Comment on above: Performed By: #### C BC #### [facility] [address] [place] [address] Dr. Kasia Nath IG % 0.3 % Normal 0.0-0.5 [facility] Comment on above: Performed By: #### C BC #### [facility] [address] [place] [address] Dr. Kasia Nath LYMPH # 1.5 103/ul Normal 1.2-3.8 [facility] Comment on above: Performed By: #### C BC #### [facility] [address] [place] [address] Dr. Kasia Nath Lymphocytes/100 WBC (Bld) 19.9 % Critically low 20.5-60.0 [facility] Comment on above: Performed By: #### C BC #### [facility] [address] [place] [address] Dr. Kasia Nath MANUAL DIFF REQ NO Normal [facility] Comment on above: Performed By: #### C BC #### [facility] [address] [place] [address] Dr. Kasia Nath MCH (RBC) [Entitic mass] 29.7 pg Normal 26.7-34.0 [facility] Comment on above: Performed By: #### C BC #### [facility] [address] [place] [address] Dr. Kasia Nath MCHC (RBC) [Mass/Vol] 33.4 g/dL Normal 29.9-35.2 [facility] Comment on above: Performed By: #### C BC #### [facility] [address] [place] [address] Dr. Kasia Nath MCV (RBC) [Entitic vol] 88.9 fL Normal 81.0-99.0 [facility] Comment on above: Performed By: #### C BC #### [facility] [address] [place] [address] Dr. Kasia Nath MONO # 0.6 103/ul Normal 0.3-0.8 [facility] Comment on above: Performed By: #### C BC #### [facility] [address] [place] [address] Dr. Kasia Nath Monocytes/100 WBC (Bld) 8.0 % Normal 1.7-12.0 [facility] Comment on above: Performed By: #### C BC #### [facility] [address] [place] [address] Dr. Kasia Nath NEUT # 5.1 103/ul Normal 1.4-6.5 [facility] Comment on above: Performed By: #### C BC #### [facility] [address] [place] [address] Dr. Kasia Nath Neutrophils/100 WBC (Bld) 67.8 % Normal 43.0-75.0 [facility] Comment on above: Performed By: #### C BC #### [facility] [address] [place] [address] Dr. Kasia Nath Platelet mean volume (Bld) [Entitic vol] 10.4 fL Normal 9.5-13.5 [facility] Comment on above: Performed By: #### C BC #### [facility] [address] [place] [address] Dr. Kasia Nath PLT 200 103/ul Normal 150-450 [facility] Comment on above: Performed By: #### C BC #### [facility] [address] [place] [address] Dr. Kasia Nath RBC 4.07 106/ul Critically low 4.20-5.40 [facility] Comment on above: Performed By: #### C BC #### [facility] [address] [place] [address] Dr. Kasia Nath WBC 7.5 103/ul Normal 4.0-11.0 [facility] Comment on above: Performed By: #### C BC #### [facility] [address] [place] [address] CHEST WO CONon [...] two extremes (Agatston score 101-1000). https://pubs.rsna.org /doi/abs/10.1148/radi [email or web address] Electronically authenticated by: RENETTA WALLACE Date: 2023-01-01 14:55 Normal [facility] Covid-19 PCR (CVDTB)on 12-14 SARS-CoV-2 (COVID-19) RNA FERN+probe Ql (Unsp spec) Not detected Normal NOT DETECTED [facility] Comment on above: Result Comment: When [...] for this test is supported by the Desulfurizer Operator of Health and Human Service's declaration [...] longer be used). Performed By: #### C [facility] #### [facility] [address] [address] [address] Kasia Nath ECHO LIMITED STUDYon 023 ECHO LIMITED STUDY Patient: SAIMA CALL Exam Date: 01/01/2023 : 1945 Gender:F Ordering : LD GUERRERO . Admission #: [id number] Family : Order #: [id number] CLICK HERE TO VIEW EXAM ECHOCARDIOGRAM REPORT [...] Pulmonic Valve Right Atrium Dictated by: Rica Medrnao M.D. on 01/01/2023 at 13:15 Approved by: Rica Medrano M.D. on 01/01/2023 at 13:19 Normal [facility] GLYCOHEMOGLOBIN A1Con 2022 ADA RECOMMENDATION SEE BELOW Normal [facility] Comment on above: Result Comment: ADA RECOMMENDED LIMIT 4.0 - 6.0 ADA THERAPEUTIC TARGET < 7.0 ACTION SUGGESTED > 7.0 Performed By: #### P OCGLUC #### [facility] [address] [address] [address] Kasia Nath Glucose [Mass/Vol] 318 mg/dL Normal [facility] Comment on above: Performed By: #### P OCGLUC #### [facility] [address] [address] [address] Kasia Nath HbA1c (Bld) [Mass fraction] 12.7 % Critically high 4.5-6.2 [facility] Comment on above: Performed By: #### P OCGLUC #### [facility] [address] [address] [address] Kasia Nath POINT OF CARE GLUCOSEon 12-14 Glucose [Mass/Vol] 162 mg/dL Critically high [facility]106 [facility] Comment on above: Performed By: #### P OCGLUC ####[facility] [id number] [address]Dr. Kasia Nath Glucose [Mass/Vol] 213 mg/dL Critically high -106 [facility] Comment on above: Performed By: #### P OCGLUC ####[facility] [id number] [id number]. Kasia Nath Glucose [Mass/Vol] 248 mg/dL Critically high -106 [facility] Comment on above: Performed By: #### P OCGLUC #### [facility] [address] [address] [address] Kasia Nath PROF CHEM 8 (BAS METB)on 02- 20-2023 Anion gap [Moles/Vol] 11.8 mmol/L Normal [facility] Comment on above: Performed By: #### C BC #### [facility] [address] [place] [address] Dr. Kasia Nath Calcium [Mass/Vol] 8.4 mg/dL Critically low 8.5-10.1 Th [facility] Comment on above: Performed By: #### C BC #### [facility] [address] [place] [address] Dr. Kasia Nath Chloride [Moles/Vol] 102 mmol/L Normal 98-107 [facility] Comment on above: Performed By: #### C BC #### [facility] [address] [place] [address] Dr. Kasia Nath CO2 [Moles/Vol] 28.4 mmol/L Normal 21.0-32.0 [facility] Comment on above: Performed By: #### C BC #### [facility] [address] [place] [address] Dr. Kasia Nath Creatinine [Mass/Vol] 1.09 mg/dL Critically high 0.55-1.02 [facility] Comment on above: Performed By: #### C BC #### [facility] [address] [place] [address] Dr. Kasia Nath EGFR-AF IVORIAN 59 mL/min/1.73m2 Critically low >=60 [facility] Comment on above: Performed By: #### C BC #### [facility] [address] [place] [address] Dr. Kasia Nath EGFR-NON AF IVORIAN 49 mL/min/1.73m2 Critically low >=60 [facility] Comment on above: Performed By: #### C BC #### [facility] [address] [place] [address] Dr. Kasia Nath Glucose [Mass/Vol] 247 mg/dL Critically high 74-106 [facility] Comment on above: Performed By: #### C BC #### [facility] [address] [place] [address] Dr. Kasia Nath Potassium [Moles/Vol] 4.2 mmol/L Normal 3.5-5.1 [facility] Comment on above: Performed By: #### C BC #### [facility] [address] [address] [address] Kasia Nath Sodium [Moles/Vol] 138 mmol/L Normal 136-145 [facility] Comment on above: Performed By: #### C BC #### [facility] [address] [address] [address] Kasia Nath Urea nitrogen [Mass/Vol] 28.0 mg/dL Critically high 7.0-18.0 [facility] Comment on above: Performed By: #### C BC #### [facility] [address] [address] [address] Kasia Nath Urea nitrogen/Creatinine [Mass ratio] 25.7 mg/mg Normal [facility] Comment on above: Performed By: #### C BC #### [facility] [address] [address] [address] Kasia Nath XR CHEST 1 Von [...] by: Miranda ALVAREZ Date: 2023-01-01 05:38 Normal [facility] ECHOCARDIO M/2D COMPLETEon 1 11-15-2021 ECHOCARDIO M/2D COMPLETE Patient: JOE CALL Exam Date: 09/15/2022 : 1945 Gender:F [facility]ing [facility] Admission #: [id number] Family : DR SHANTEL STEVEN M.D. Order #: [id number] CLICK HERE TO VIEW EXAM ECHOCARDIOGRAM REPORT [...] M.D. on 09/15/2022 at 18:17 Normal [facility] GI PANEL (PCR)on 05-02-2022 Adenovirus F 40/41 Not detected Normal NOT DETECTED [facility] Comment on above: Performed By: #### P OCGLUC #### [facility] [address] [place] [address] Dr. Kasia Nath Astrovirus Not detected Normal NOT DETECTED [facility] Comment on above: Performed By: #### P OCGLUC #### [facility] [address] [place] [address] Dr. Kasia Nath C. Diff toxin A/B Not detected Normal NOT DETECTED [facility] Comment on above: Performed By: #### P OCGLUC #### [facility] [address] [place] [address] Dr. Kasia Nath Campylobacter Not detected Normal NOT DETECTED [facility] Comment on above: Performed By: #### P OCGLUC #### [facility] [address] [address] [address] Kasia Nath Cryptosporidium Not detected Normal NOT DETECTED [facility] Comment on above: Performed By: #### P OCGLUC #### [facility] [address] [address] [address] Kasia Nath Cyclos. Cayetanensis Not detected Normal NOT DETECTED [facility] Comment on above: Performed By: #### P OCGLUC #### [facility] [address] [place] [address] Dr. Kasia Nath E. Coli O157 Not Applicable Normal Not Applicable [facility] Comment on above: Performed By: #### P OCGLUC #### [facility] [address] [address] [address] Kasia Nath E. histolytica Not detected Normal NOT DETECTED [facility] Comment on above: Performed By: #### P OCGLUC #### [facility] [address] [place] [address] Dr. Kasia Nath EAEC Not detected Normal NOT DETECTED [facility] Comment on above: Performed By: #### P OCGLUC #### [facility] [address] [place] [address] Dr. Kasia Nath EIEC Not detected Normal NOT DETECTED [facility] Comment on above: Performed By: #### P OCGLUC #### [facility] [address] [place] [address] Dr. Kasia Nath EPEC Detected Abnormal NOT DETECTED [facility] Comment on above: Performed By: #### P OCGLUC #### [facility] [address] [place] [address] Dr. Kasia Nath ETEC Not detected Normal NOT DETECTED [facility] Comment on above: Performed By: #### P OCGLUC #### [facility] [address] [place] [address] Dr. Kasia Nath G. Lamblia Not detected Normal NOT DETECTED [facility] Comment on above: Performed By: #### P OCGLUC #### [facility] [address] [place] [address] Dr. Kasia Nath GIPANEL CONTROLS PASSED Normal [facility] Comment on above: Performed By: #### P OCGLUC #### [facility] [address] [address] [address] Kasia FRAIRE HEADER GI PANEL BACTERIA Normal [facility] Comment on above: Performed By: #### P OCGLUC #### [facility] [address] [address] [address] Kasia GE ECOLI GI PANEL DIARRHEAGENIC E.COLI / SHIGELLA Normal [facility] Comment on above: Performed By: #### P OCGLUC #### [facility] [address] [address] [address] Kasia GE INFO SEE BELOW [facility] Comment on above: Result Comment: EAEC - Enteroaggregative E. Coli EPEC- Enteropathogenic E. Coli ETEC- Enterotoxigenic E. Coli lt/st STEC- Shigella-like toxin-producing E. Coli stx1/stx2 EIEC- Shigella/Enteroinvasive E. Coli Performed By: #### P OCGLUC #### [facility] [address] [address] [address] Kasia GE PARASITES GI PANEL PARASITES Normal [facility] Comment on above: Performed By: #### P OCGLUC #### [facility] [address] [address] [address] Kasia GE VIRUS GI PANEL VIRUSES Normal [facility] Comment on above: Performed By: #### P OCGLUC #### [facility] [address] [address] [address] Kasia Nath Norovirus GI/GII Not detected Normal NOT DETECTED [facility] Comment on above: Performed By: #### P OCGLUC #### [facility] [address] [address] [address] Kasia Garland. Shigelloides Not detected Normal NOT DETECTED [facility] Comment on above: Performed By: #### P OCGLUC #### [facility] [address] [address] [address] Kasia Nath Rotavirus A Not detected Normal NOT DETECTED [facility] Comment on above: Performed By: #### P OCGLUC #### [facility] [address] [address] [address] Kasia Nath Salmonella Not detected Normal NOT DETECTED [facility] Comment on above: Performed By: #### P OCGLUC #### [facility] [address] [address] [address] Kasia Nath Sapovirus Not detected Normal NOT DETECTED [facility] Comment on above: Performed By: #### P OCGLUC #### [facility] [address] [address] [address] Kasia Nath STEC Not detected Normal NOT DETECTED [facility] Comment on above: Performed By: #### P OCGLUC #### [facility] [address] [place] [address] Dr. Kasia Nath Vibrio Not detected Normal NOT DETECTED [facility] Comment on above: Performed By: #### P OCGLUC #### [facility] [address] [address] [address] Kasia Nath Vibrio Cholera Not detected Normal NOT DETECTED [facility] Comment on above: Performed By: #### P OCGLUC #### [facility] [address] [address] [address] Kasia Nath Y. Enterocolitica Not detected Normal NOT DETECTED [facility] Comment on above: Performed By: #### P OCGLUC #### [facility] [address] [place] [address] Dr. Kasia Nath OCC BLD IMMUNO SCREENon 04-13 OCCULT BLOOD Negative Normal NEGATIVE [facility] Comment on above: Performed By: #### C BC #### [facility] [address] [place] [address] Dr. Kasia Nath XR knee BI 4Von 08-25-2021 XR knee BI 4V [facility] [employer] Other XR knee BI 4V [facility] [employer] Other XR knee BI 4V [address] [place] [address] [employer] Other XR knee BI 4V [address] [employer] Other XR knee BI 4V XRay Report [facility] [email or web address] Other XR knee BI 4V Signed [employer] Other XR knee BI 4V Patient: Joe Call MR#: [id number] [place] [employer] Other XR knee BI 4V 0 [employer] Other XR knee BI 4V : 1945 Acct:[id number] [employer] Other XR knee BI 4V Age/Sex: 76 / F ADM Date: 08/25/21 [employer] Other XR knee BI 4V Loc: SOXD Room: Type : [facility] [employer] Other XR knee BI 4V Attending Dr: Akbar Cui II, MD [employer] Other XR knee BI 4V Ordering Provider: Akbar Cui MD [employer] Other XR knee BI 4V Date of Service: 08/25/21 [employer] Other XR knee BI 4V XR/XR knee BI 4V: Pain in right knee;Pain in left knee [employer] Other XR knee BI 4V Copies to: Akbar Cui MD [employer] Other XR knee BI 4V XR knee BI 4V 08/25/2021 1:32 PM [employer] Other XR knee BI 4V SIGNS AND SYMPTOMS: Bilateral knee pain with decreased range of motion, weakness [employer] Other XR knee BI 4V PROTOCOL: Frontal, lateral, and sunrise views of the bilateral knees [employer] Other XR knee BI 4V COMPARISON: None [employer] Other XR knee BI 4V FINDINGS: [employer] Other XR knee BI 4V There is mild narrowing of the medial weightbearing joint spaces. There is mild patellofemoral [employer] Other XR knee BI 4V joint space loss. There is spurring of the poles of the patella bilaterally. There is mild lateral [employer] Other XR knee BI 4V patellar subluxation bilaterally. There is no evidence of acute displaced fracture. Well-corticated [employer] Other XR knee BI 4V ossific structures o r separate from the right medial weightbearing joint space. This may represent a [employer] Other XR knee BI 4V calcified loose bodies. [employer] Other XR knee BI 4V XR/XR knee BI 4V [employer] Other XR knee BI 4V IMPRESSION: [employer] Other XR knee BI 4V Degenerative changes are noted are noted bilaterally, as above. [employer] Other XR knee BI 4V Well-corticated ossific structures or separate from the right medial weightbearing joint space. This [employer] Other XR knee BI 4V may represent a calcified loose bodies. [employer] Other XR knee BI 4V No acute displaced fracture. [employer] Other XR knee BI 4V There is mild latera l subluxation of the patella within the patellofemoral joint space bilaterally. [employer] Other XR knee BI 4V Impression dictated by: Emery Lobo M.D.08/25/2021 2:51 PM [employer] Other XR knee BI 4V Dictation Location: [place] [address] [employer] Other XR knee BI 4V Transcribed By: RAFAEL 08/25/21 1451 [employer] Other XR knee BI 4V Dictated By: Emery Lobo II, MD 08/25/21 1447 [employer] Other XR knee BI 4V Signed By: [employer] Other XR knee BI 4V 08/25/21 1451 [facility] [employer] Other XR pelvis 1-2Von 08-25-2021 XR pelvis 1-2V XR/XR pelvis 1-2V: Pain in right knee;Pain in left knee [employer] Other XR pelvis 1-2V XR pelvis 1-2V 08/25/2021 1:32 PM [employer] Other XR pelvis 1-2V SIGNS AND SYMPTOMS: Bilateral generalized knee pain, limited range of motion with weakness [employer] Other XR pelvis 1-2V PROTOCOL: Frontal radiograph of the pelvis [employer] Other XR pelvis 1-2V There is mild narrowing of the weightbearing joint spaces. Mild degenerative changes are noted in [employer] Other XR pelvis 1-2V the symphysis pubis. There is no evidence of fracture or dislocation. Vascular calcifications are [employer] Other XR pelvis 1-2V present in the pelvis. [employer] Other XR pelvis 1-2V XR/XR pelvis 1-2V [employer] Other XR pelvis 1-2V No fracture or dislocation. [employer] Other XR pelvis 1-2V Mild degenerative changes are noted in the joint space of the hips. [employer] Other XR pelvis 1-2V Impression dictated by: Emery Lobo M.D.08/25/2021 2:54 PM [employer] Other XR pelvis 1-2V Transcribed By: PWS 08/25/21 [facility] [employer] Other XR pelvis 1-2V Dictated By: Emery Lobo II, MD 08/25/21 [facility] [employer] Other XR pelvis 1-2V 08/25/[address] [place] [address] [employer] Other Vital Signs Date Time Vital Sign Value Performing Clinician Facility 04-03-2024 11:29-0400 Body height 165.1 cm MD Shantel Steven Work Phone: [facility] 04-03-2024 11:29-0400 Body mass index (BMI) [Ratio] 43.7 kg/m2 MD Shantel Steven Work Phone: [facility] 04-03-2024 11:29-0400 Body weight 119.29 kg MD Shantel Steven Work Phone: [facility] 04-03-2024 11:29-0400 Diastolic blood pressure 71 mm[Hg] MD Shantel Steven Work Phone: [facility] 04-03-2024 11:29-0400 Heart rate 56 /min MD Shantel Steven Work Phone: [facility] 04-03-2024 11:29-0400 Systolic blood pressure 116 mm[Hg] MD Shantel Steven Work Phone: [facility] 03-25-2024 15:15-0400 Body height 165.1 cm MD Shantel Steven Work Phone: [facility] 03-25-2024 15:15-0400 Body mass index (BMI) [Ratio] 43.9 kg/m2 MD Shantel Steven Work Phone: [facility] 03-25-2024 15:15-0400 Body weight 119.74 kg MD Shantel Steven Work Phone: [facility] 03-25-2024 15:15-0400 Diastolic blood pressure 87 mm[Hg] MD Shantel Steven Work Phone: [facility] 03-25-2024 15:15-0400 Heart rate 66 /min MD Shantel Steven Work Phone: [facility] 03-25-2024 15:15-0400 Systolic blood pressure 125 mm[Hg] MD Shantel Steven Work Phone: [facility] 02-15-2024 14:18-0400 Body height 165.1 cm [facility] 02-15-2024 14:18-0400 Body mass index (BMI) [Ratio] 38.6 kg/m2 [facility] 02-15-2024 14:18-0400 Body weight 105.23 kg [facility] 02-15-2024 14:18-0400 Diastolic blood pressure 66 mm[Hg] [facility] 02-15-2024 14:18-0400 Heart rate 55 /min [facility] 02-15-2024 14:18-0400 Systolic blood pressure 114 mm[Hg] [facility] 01-18-2024 10:23-0500 Body height 165.1 cm [facility] 01-18-2024 10:23-0500 Body mass index (BMI) [Ratio] 43.2 kg/m2 [facility] 01-18-2024 10:23-0500 Body weight 117.93 kg [facility] 01-18-2024 10:23-0500 Diastolic blood pressure 70 mm[Hg] [facility] 01-18-2024 10:23-0500 Heart rate 98 /min [facility] 01-18-2024 10:23-0500 SaO2% (BldA) [Mass fraction] 65 % [facility] 01-18-2024 10:23-0500 Systolic blood pressure 110 mm[Hg] [facility] 10-23-2023 16:00-0500 Body height 165.1 cm [employer] Other [employer] Other 10-23-2023 16:00-0500 Body mass index (BMI) [Ratio] 44.63 kg/m2 Aziz Bakhous Other [employer] Other 10-23-2023 16:00-0500 Body temperature 96.8 [degF] Azghassan Kochs Other [employer] Other 10-23-2023 16:00-0500 Body weight 121.66 kg Azghassan Kochs Other [employer] Other 10-23-2023 16:00-0500 Diastolic blood pressure 60 mm[Hg] Jaleesa Kochs Other [employer] Other 10-23-2023 16:00-0500 Respiratory rate 18 /min Jaleesa Kochs Other [employer] Other 10-23-2023 16:00-0500 SaO2% (BldA) [Mass fraction] 99 % Jaleesa Kochs Other [employer] Other 10-23-2023 16:00-0500 Systolic blood pressure 124 mm[Hg] Jaleesa Kochs Other [employer] Other 10-18-2023 13:45-0500 Body height 165.1 cm Shantel Steven Other [employer] Other 10-18-2023 13:45-0500 Body mass index (BMI) [Ratio] 44.86 kg/m2 Shantel Steven Other [employer] Other 10-18-2023 13:45-0500 Body temperature 97.3 [degF] Shantel Steven Other [employer] Other 10-18-2023 13:45-0500 Body weight 122.29 kg Shantel Steven Other [employer] Other 10-18-2023 13:45-0500 Diastolic blood pressure 84 mm[Hg] Shantel Steven Other [employer] Other 10-18-2023 13:45-0500 SaO2% (BldA) [Mass fraction] 97 % Shantel Steven Other [employer] Other 10-18-2023 13:45-0500 Systolic blood pressure 132 mm[Hg] Shantel Steven Other [employer] Other 09-04-2023 14:00-0400 Body height 165.1 cm Shantel Steven Other [employer] Other 09-04-2023 14:00-0400 Body mass index (BMI) [Ratio] 43.06 kg/m2 Shantel Steven Other [employer] Other 09-04-2023 14:00-0400 Body weight 117.39 kg Shantel Steven Other [employer] Other 09-04-2023 14:00-0400 Diastolic blood pressure 69 mm[Hg] Shantel Steven Other [employer] Other 09-04-2023 14:00-0400 Systolic blood pressure 127 mm[Hg] Shantel Steven Other [employer] Other 07-17-2023 10:00-0400 Body height 165.1 cm Shantel Steven Other [employer] Other 07-17-2023 10:00-0400 Body mass index (BMI) [Ratio] 43.03 kg/m2 Shantel Steven Other [employer] Other 07-17-2023 10:00-0400 Body weight 117.3 kg Shantel Steven Other [employer] Other 07-17-2023 10:00-0400 Diastolic blood pressure 76 mm[Hg] Shantel Steven Other [employer] Other 07-17-2023 10:00-0400 Systolic blood pressure 164 mm[Hg] Shantel Steven Other [employer] Other 04-30-2023 14:30-0400 Body height 165.1 cm Shantel Steven Other [employer] Other 04-30-2023 14:30-0400 Body mass index (BMI) [Ratio] 43.43 kg/m2 Shantel Steven Other [employer] Other 04-30-2023 14:30-0400 Body weight 118.39 kg Shantel Steven Other [employer] Other 04-30-2023 14:30-0400 Diastolic blood pressure 75 mm[Hg] Shantel Steven Other [employer] Other 04-30-2023 14:30-0400 Systolic blood pressure 135 mm[Hg] Shantel Steven Other [employer] Other 03-09-2023 12:15-0400 Body height 165.1 cm Shantel Steven Other [employer] Other 03-09-2023 12:15-0400 Body mass index (BMI) [Ratio] 43.59 kg/m2 Shantel Steven Other [employer] Other 03-09-2023 12:15-0400 Body weight 118.84 kg Shantel Steven Other [employer] Other 03-09-2023 12:15-0400 Diastolic blood pressure 82 mm[Hg] Shantel Steven Other [employer] Other 03-09-2023 12:15-0400 SaO2% (BldA) [Mass fraction] 97 % Shantel Steven Other [employer] Other 03-09-2023 12:15-0400 Systolic blood pressure 130 mm[Hg] Shantel Steven Other [employer] Other 02-20-2023 10:00-0400 Body height 165.1 cm Shantel Steven Other [employer] Other 02-20-2023 10:00-0400 Body mass index (BMI) [Ratio] 41.93 kg/m2 Shantel Steven Other [employer] Other 02-20-2023 10:00-0400 Body weight 114.31 kg Shantel Steven Other [employer] Other 02-20-2023 10:00-0400 Diastolic blood pressure 84 mm[Hg] Shantel Steven Other [employer] Other 02-20-2023 10:00-0400 Systolic blood pressure 132 mm[Hg] Shantel Steven Other [employer] Other 08-04-2022 13:33-0400 Blood Pressure Location Bin SORENSON [facility] 08-04-2022 13:33-0400 Diastolic blood pressure 88 mm[Hg] Bin SORENSON [facility] [place] 08-04-2022 13:33-0400 Heart rate 76 /min Bin SORENSON [facility] [place] 08-04-2022 13:33-0400 Respiratory rate 16 /min Bin SORENSON [facility] [place] 08-04-2022 13:33-0400 Systolic blood pressure 130 mm[Hg] Bin SORENSON [facility] [place] 08-25-2021 14:30-0400 Body height 165.1 cm [facility] Other [employer] Other 08-25-2021 14:30-0400 Body mass index (BMI) [Ratio] 43.26 kg/m2 [facility] Other [employer] Other 08-25-2021 14:30-0400 Body weight 117.94 kg [facility] Other [employer] Other Encounters Encounter Date Encounter Type Care Provider Facility Start: 04-03-2024 End: 04-03-2024 ambulatory MD Shantel Steven Work Phone: [facility] Work Phone: Start: 04-03-2024 End: 04-03-2024 Patient encounter procedure MD Shantel Steven Work Phone: [facility] Work Phone: Start: 04-01-2024 Non-patient / Non-visit MD Alessia Steven Work Phone: [facility] Work Phone: Start: 03-31-2024 Non-patient / Non-visit MD Alessia Steven Work Phone: [facility] Work Phone: Start: 03-28-2024 Non-patient / Non-visit MD Alessia Steven Work Phone: [facility] Work Phone: Start: 03-27-2024 Non-patient / Non-visit MD Alessia Steven Work Phone: [facility] [place] [facility] Work Phone: Start: 03-26-2024 Non-patient / Non-visit MD Alessia Steven Work Phone: [facility] Work Phone: Start: 03-25-2024 End: 03-25-2024 Patient encounter procedure MD Shantel Steven Work Phone: [facility] Work Phone: Start: 03-13-2024 End: 03-13-2024 ambulatory MD Shantel Steven Work Phone: [facility] Work Phone: Start: 03-13-2024 End: 03-13-2024 Patient encounter procedure MD Shantel Steven Work Phone: [facility] [address] Work Phone: Start: 03-07-2024 End: 03-07-2024 ambulatory [facility] Start: 02-19-2024 ambulatory Facility:[facility] Start: 02-15-2024 End: 02-15-2024 ambulatory [facility] Work Phone: Start: 02-15-2024 End: 02-15-2024 Patient encounter procedure [facility] Work Phone: Start: 01-29-2024 Non-patient / Non-visit [facility] Work Phone: Start: 01-24-2024 Non-patient / Non-visit [facility] [place] [facility] Work Phone: Start: 01-22-2024 Non-patient / Non-visit [facility] [place] [facility] Work Phone: Start: 01-18-2024 End: 01-18-2024 Patient encounter procedure [facility] Work Phone: Start: 01-15-2024 Non-patient / Non-visit [facility] Work Phone: Start: 01-04-2024 Non-patient / Non-visit [facility] Work Phone: Start: 12-18-2023 End: 12-18-2023 ambulatory Shantel Steven Other [employer] Other Start: 12-18-2023 Telephone encounter Shantel Steven [facility] Start: 11-19-2023 End: 11-19-2023 ambulatory Shantel tSeven Other [employer] Other Start: 11-19-2023 Telephone encounter Shantel Steven [facility] Start: 10-23-2023 End: 10-23-2023 ambulatory Aziz Bakhous Other [employer] Other Start: 10-23-2023 Office outpatient ne w 30 minutes Aziz Bakhous [facility] Start: 10-22-2023 End: 10-22-2023 ambulatory Shantel Steven Other [employer] Other Start: 10-22-2023 Telephone encounter Shantel Steven [facility] Start: 10-18-2023 End: 10-18-2023 ambulatory Shantel Steven Other [employer] Other Start: 10-18-2023 Office outpatient vi sit 15 minutes Shantel Steven [facility] Start: 09-07-2023 End: 09-07-2023 ambulatory Shantel Steven Other [employer] Other Start: 09-07-2023 Telephone encounter Shantel Steven [facility] Start: 09-04-2023 End: 09-04-2023 ambulatory Shantel Tenisha Other [employer] Other Start: 09-04-2023 Office outpatient vi sit 25 minutes Shantel Steven [facility] Start: 08-23-2023 End: 08-23-2023 ambulatory Shantel Steven Other [employer] Other Start: 08-23-2023 Telephone encounter Shantel Steven [facility] Start: 08-17-2023 End: 08-17-2023 ambulatory [facility] Start: 07-23-2023 Telephone encounter Shantel Steven [facility] Start: 07-23-2023 End: 07-23-2023 ambulatory [facility] [employer] Other Start: 07-17-2023 End: 07-17-2023 ambulatory Shantel Tenisha Other [employer] Other Start: 07-17-2023 Office outpatient vi sit 25 minutes Shantel Steven [facility] Start: 05-30-2023 End: 05-30-2023 ambulatory Shantel Steven Other [employer] Other Start: 05-30-2023 Telephone encounter Shantel Steven [facility] Start: 05-22-2023 End: 05-22-2023 ambulatory Shantel Tenisha Other [employer] Other Start: 05-22-2023 Telephone encounter Shantel Steven [facility] Start: 05-16-2023 End: 05-16-2023 ambulatory Shantel Steven Other [employer] Other Start: 05-16-2023 Telephone encounter Shantel Steven [facility] Start: 05-07-2023 End: 05-07-2023 ambulatory Shantel Tenisha Other [employer] Other Start: 05-07-2023 Telephone encounter Shantel Steven [facility] Start: 04-30-2023 End: 04-30-2023 ambulatory Shantel Steven Other [employer] Other Start: 04-30-2023 Office outpatient vi sit 25 minutes Shantel Steven [facility] Start: 04-25-2023 End: 04-25-2023 ambulatory RICA MEDRANO [employer] Other Start: 04-25-2023 Telephone encounter Shantel Tenisha [facility] Start: 04-12-2023 End: 04-12-2023 ambulatory Shantel Steven Other [employer] Other Start: 04-12-2023 Telephone encounter Shantel Tenisha [facility] Start: 03-09-2023 End: 03-09-2023 ambulatory Shantel Steven Other [employer] Other Start: 03-09-2023 Office outpatient vi sit 15 minutes Shantel Steven [facility] Start: 03-07-2023 End: 03-07-2023 ambulatory Shantel Steven Other [employer] Other Start: 03-07-2023 Telephone encounter Shantel Steven [facility] Start: 03-06-2023 End: 03-06-[address] SHANTEL STEVEN Facility:[facility] Start: 03-05-2023 End: 03-05-2023 ambulatory Shantel Steven Other [employer] Other Start: 03-05-2023 Telephone encounter Shantel Steven [facility] Start: 02-26-2023 End: 02-26-2023 ambulatory Shantel Steven Other [employer] Other Start: 02-26-2023 Telephone encounter Shantel Steven [facility] Start: 02-24-2023 End: 02-24-[address] SHANTEL STEVEN Facility:[facility] Start: 02-23-2023 End: 02-23-2023 ambulatory Shantel Steven Other [employer] Other Start: 02-23-2023 Telephone encounter Shantel Steven [facility] Start: 02-20-2023 End: 02-20-2023 ambulatory Shantel Steven Other [employer] Other Start: 02-20-2023 [facility]itional [facility] Shantel Steven [facility] Start: 02-16-2023 End: 02-16-2023 ambulatory Shantel Steven Other [employer] Other Start: 02-16-2023 Telephone encounter Shantel Steven [facility] Start: 02-13-2023 End: 02-14-[address] SHANTEL STEVEN Facility:[facility] Start: 02-02-2023 End: 02-02-2023 ambulatory Shantel Steven Other [employer] Other Start: 02-02-2023 Telephone encounter Shantel Steven [facility] Start: 01-16-2023 End: 01-17-[address] DOCTOR CARMONA Facility:[facility] Start: 01-05-2023 End: 01-05-2023 ambulatory IBN ROJAS Facility:[facility] Start: 01-01-2023 End: 01-02-2023 ambulatory ANALISA WHYTE Facility:[facility] Start: 11-29-2022 End: 11-29-2022 ambulatory Shantel Steven Other [employer] Other Start: 11-29-2022 Telephone encounter Shantel Steven [facility] Start: 11-27-2022 End: 11-27-2022 ambulatory Shantel Steven Other [employer] Other Start: 11-27-2022 Telephone encounter Shantel Steven [facility] Start: 11-24-2022 End: 11-24-2022 ambulatory Shantel Steven Other [employer] Other Start: 11-24-2022 Telephone encounter Shantel Steven [facility] Start: 11-06-2022 ambulatory YAMEL MCCRACKEN Facility :[facility] Start: 09-15-2022 End: 09-16-[address] SHANTEL STEVEN Facility:[facility] Start: 08-04-2022 End: 08-04-2022 Patient encounter procedure Bin R NILL [facility] [place] Start: 05-02-2022 End: 05-02-[address] SHANTEL STEVEN Facility:[facility] Start: 08-25-2021 Office outpatient ne w 45 minutes Akbar Cui II [facility] Start: 08-09-2017 End: 08-12-2017 Ambulatory PROVIDER UNKNOWN Facility:[facility] Procedures Date Procedure Procedure Detail Performing [...] Activity Detail Author Start: 02-15-2024 Patient referral [facility] Work Phone: Comprehensive metabo lic 2000 panel - Serum or Plasma [facility] Microalbumin [Mass/v olume] in Urine [facility] Patient referral [facility] Work Phone: [facility] Immunizations Immunization Date Immunization Notes Care Provider Fa cility 01-18-2024 Pneumococcal Conjugate Vaccine, 20 valent [facility] 09-04-2023 influenza, high dose seasonal, preservative-free Shantel Steven Other [facility] [employer] Other 09-04-2023 influenza virus vaccine, unspecified formulation [facility] 02-04-2021 COVID-19 mRNA, Comirnaty (Pfizer) [facility] 01-21-2021 COVID-19 mRNA, Comirnaty (Pfizer) [facility] 10-09-2018 influenza virus vaccine, split virus (incl. purified surface antigen) Shantel Steven Other [facility] [employer] Other 10-09-2018 influenza virus vaccine, unspecified formulation [facility] NEGATED: Highlighted row has not occurred!08-21-2019 influenza virus vaccine, split virus (incl. purified surface antigen) Shantel Steven Other [facility] [employer] Other Payers Date Payer Category Payer Self-pay [id number] 1958 Medicare [id number] 1958 Self-pay [id number] 1945 Unknown [id number] 2.16.84 [id number] 1945 Unknown [id number] 2.16.84 [id number] 1945 Unknown [id number] 2.16.84 [id number] 1945 Unknown [id number] 2.16.84 [id number] 1945 Unknown [id number] 2.16.84 [id number] 1945 Unknown [id number] 2.16.84 [id number] 1945 Unknown [id number] 2.16.84 [id number] 1945 Unknown [id number] 2.16.84 [id number] 1945 Unknown [id number] 2.16.84 [id number] Unknown Unknown [id number] 2.16.8 [id number] Social History Date Type Detail Facility Sex Assigned At [facility] [employer] Other Start: 08-04-2022 End: 01-18-2024 Tobacco smoking status Ex-smoker (finding) [facility] [place] Tobacco smoking status Never [facility] [place] Start: 1945 Sex Assigned At Female F [facility] Procedure Code Equipment Code Equipment Origin al Text Equipment Identifier Dates Blood Sugar Diagnostic (True Metrix Glucose Test Strip) strip Start: 03-31-2024 Pen Needle, Diab etic (Comfort Ez Pen D[place]ridge) 33 gauge x 5/32 needle Start: 03-25-2024 Blood Sugar Diagnostic (True Metrix Glucose Test Strip) strip Start: 03-31-2024 End: 03-31-2024 Functional Status Date Assessment Result Facility 08-04-2022 Functional Status N/A [facility] 08-25-2021 to 03-07-2024 Note Date & Type Note Facility 03-07-2024 Note [place] [facility] - [facility] [...] prior cardiac catheterizations. She has history of MD in the past and underwent balloon angioplasty (many years ago, prior to the stent era). 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 In December 2022 she was admitted to the [facility] with decompensated diastolic heart failure, she was treated with diuretic therapy. In February 2023 she was admitted to [facility] with dehydration secondary to acute gastroenteritis. She also had acute kidney injury in that setting. She has history of breast cancer more than 25 years ago s/p mastectomy, chemo and radiation therapy. She has lymphedema in the left arm. In the past she saw a process trainer for bleeding behind the eye . she [...] TIMES DAILY NEEDED (more content not included)... [facility] 02-15-2024 Hospital Discharge instructions Ambulatory OrdersReferral to Urology Time Frame: 02/15/24, Location: None Selected [facility] Work Phone: 11-19-2023 Evaluation note Encounter Date Diagnosis Assessment Notes Nov, Lumbar degenerative disc disease (ICD-10 - M51.36) [employer] Other [id number] Evaluation note* Encounter Date Diagnosis Assessment Notes [...] will check vitamin B12 level next visit [employer] Other 12-11-2023 Evaluation note* Encounter Date Diagnosis Assessment Notes Treatment Notes Treatment Clinical Notes Oct, Lumbar degenerative disc disease (ICD-10 - M51.36) [employer] Other 12-07-2023 Evaluation note* Encounter Date Diagnosis Assessment Notes Treatment Notes Treatment Clinical Notes Oct, Bronchitis (ICD-10 - J40) Finish meds. No acute need for antibiotic at this time Oct, Diabetes mellitus with chronic kidney disease (ICD-10 - E11.22) Due for labs, followup w Dr. Mcconnell Oct, Lumbar degenerative disc disease (ICD-10 - M51.36) Pt will contact neurosurgery. [employer] Other 10-27-2023 Evaluation note* Encounter Date Diagnosis Assessment Notes Treatment Notes Treatment Clinical Notes Aug, Chronic kidney disease, stage 4 (severe) (ICD-10 - N18.4) [employer] Other 10-24-2023 Evaluation note* Encounter Date Diagnosis [...] (ICD-10 - M51.36) Pt requests referral to [place] [facility]. Reviewed OARRS report. Aug, Stress incontinence of urine (ICD-10 - N39.3) R/o infection. Discussed could be related to her diabetes med as well. [employer] Other 10-12-2023 Evaluation note* Encounter Date Diagnosis Assessment Notes Treatment Notes Treatment Clinical Notes Aug, Lumbar degenerative disc disease (ICD-10 - M51.36) [employer] Other 10-06-2023 NotePatient here for 1 mo follow up CAD, chronic diastolic heart failure, and PAF. Follow up labs have not been completed yet. Her room service server recently started her on Farxiga but she [...] light-headedness. All other systems reviewed and are negative.[facility] 08-17-2023 NoteCardiology Clinic Note Subjective Joe [...] In February 2023 she was admitted to [facility] with dehydration secondary to acute gastroenteritis. She also had acute kidney injury in that setting. She has history of breast cancer more than 25 years ago s/p mastectomy, chemo and radiation therapy. She has lymphedema in the left arm. She has been doing well. No chest pain. No dyspnea. No palpitations. She reports that she is seeing a process trainer for bleeding behind the eye . She has had a lot of balance issues, uses a walker to ambulate and has had about 10 falls in the past year. Update: 07/23/2023 She was admitted to [facility] 07/08-07/10/2023 for decompensated HFpEF She was [...] with questions Was prescribed Farxiga by her room service server but did not start after reading about [...] DAYS, Disp: , Rfl (more content not included)...[facility] Encounter Date Diagnosis Assessment Notes Treatment Notes Treatment Clinical Notes Jul, Lumbar degenerative disc disease (ICD-10 - M51.36) [employer] Other 09-11-2023 NoteCardiology Clinic Note Subjective Joe [...] In February 2023 she was admitted to [facility] with dehydration secondary to acute gastroenteritis. She also had acute kidney injury in that setting. She has history of breast cancer more than 25 years ago s/p mastectomy, chemo and radiation therapy. She has lymphedema in the left arm. She has been doing well. No chest pain. No dyspnea. No palpitations. She reports that she is seeing a process trainer for bleeding behind the eye . She has had a lot of balance issues, uses a walker to ambulate and has had about 10 falls in the past year. Update: 07/23/2023 She was admitted to [facility] 07/08-07/10/2023 for decompensated HFpEF She was [...] time each day., Disp: (more content not included)...[facility]09-11-2023 NotePatient here for follow up [facility] for CHF. She was seen as [...] weakness. All other systems reviewed and are negative.[facility] 07-17-2023 Evaluation note* Encounter Date Diagnosis [...] refill. Oarrs reviewed. No med changes needed. [employer] Other 07-05-2023 Evaluation note* Encounter Date Diagnosis Assessment Notes Treatment Notes Treatment Clinical Notes May, C. difficile colitis (ICD-10 - A04.72) [employer] Other 06-19-2023 Evaluation note* Encounter Date Diagnosis Assessment Notes Treatment Notes Treatment Clinical Notes Apr, Skin candidiasis (ICD-10 - B37.2) Discussed this is related to her hyperglycemia. Will treat w nystatin, but needs improvement in diet and glucose readings. Apr, Type 2 diabetes mellitus with hyperglycemia, unspecified whether half-way insulin use (ICD-10 - E11.65) Pt agrees to see Dr Mcconnell again. Recently sent to ER for glucose of 608. Apr, Tremor of both hands (ICD-10 - R25.1) Referral to Dr. Lopez Apr, Memory changes (ICD- 10 - R41.3) Referral to Dr. Lopez Apr, Gastroesophageal reflux disease without esophagitis (ICD-10 - K21.9) Improved on carafate w PPI. [employer] Other 06-14-2023 NoteUT Cardiology - [facility] Clinic Subjective Joe Call is a [...] prior cardiac catheterizations. She has history of MD in the past and underwent balloon angioplasty (many years ago, prior to the stent era). 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 In December 2022 she was admitted to the [facility] with decompensated diastolic heart failure, she was treated with diuretic therapy. In February 2023 she was admitted to [facility] with dehydration secondary to acute gastroenteritis. She also had acute kidney injury in that setting. She has history of breast cancer more than 25 years ago s/p mastectomy, chemo and radiation therapy. She has lymphedema in the left arm. She has been doing well. No chest pain. No dyspnea. No palpitations. She reports that she is seeing a process trainer for bleeding behind the eye . She [...] 40 mg by mouth (more content not included)...[facility]06-01-2023 Evaluation note* Encounter Date Diagnosis Assessment Notes Treatment Notes Treatment Clinical Notes Apr, Gastroesophageal ref lux disease without esophagitis (ICD-10 - K21.9) [employer] Other 04-28-2023 Evaluation note* Encounter Date Diagnosis [...] (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 insulin (ICD-10 - Z79.4) [employer] Other 04-26-2023 Evaluation note* Encounter Date Diagnosis Assessment Notes Treatment Notes Treatment Clinical Notes Feb, C. difficile colitis (ICD-10 - A04.72) [employer] Other 04-17-2023 Evaluation note* Encounter Date Diagnosis Assessment Notes Treatment Notes Treatment Clinical Notes Feb, Gastroesophageal ref lux disease without esophagitis (ICD-10 - K21.9) [employer] Other 04-14-2023 Evaluation note* Encounter Date Diagnosis Assessment Notes Treatment Notes Treatment Clinical Notes Feb, Chronic diarrhea (ICD-10 - K52.9) [employer] Other 04-11-2023 Evaluation note* Encounter Date Diagnosis [...] it really overall has not been helpful. 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 Follow up in 3 months. [place] [employer] Other Evaluation + Plan note No data available for this section [facility] [place] Evaluation noteNo InformationNort [employer] Other Evaluation noteNort [employer] Other Evaluation noteNoranken [facility] [employer] Other Evaluation note* Diagnosis Onset Date Resolution Status Chalazion of right eye acute Immunization due acute Urinary incontinence [facility] Work Phone: Evaluation note* Diagnosis Onset Date Resolution Status Chalazion of right eye acute Immunization due acute Urinary incontinence acute Diabetes mellitus with hyperglycemia acute Hypertension acute Hypothyroidism acute Lumbar spondylosis acute Secondary hyperparathyroidism acute [facility] Work Phone: Hisvoxw general Narrative - Reported* Type Description Date [...] History COLONOSCOPY 04/10/2019 Hospitalization History See above [employer] Other [employer] general Narrative - Reported* Type Description Date [...] History COLONOSCOPY 04/10/2019 Hospitalization History See above [employer] Other History general Narrative - ReportedNoLearndot Other History general Narrative - ReportedNoLearndot Other Hispfei general Narrative - Reported* Type Description Date [...] Hospitalization History See above [facility] DUE TO HYPOALBUMINEMIA, CHF 07/10/2023 Hospitalization History CHF 01/2023 Hospitalization History GERD 2022 Hospitalization History DIABETES ISSUES 2022 [employer] Other Hospital Discharge instructions No data available for this section [facility] [place] Progress note No data available for this section [facility] [place] Summary Purpose Family History Relationship Condition Age [...] se, stage 4 (severe) (N18.4) Referral Organization On license of [facility] helene Referring Provider First Name Shantel Referring Provider Last Name Tenisha Referring Provider [facility] Referred Organization [facility] Nephrology Referred Provider Cherie Rapp [address]erred Address [address] [place], [place],[address] Referred Provider Specialty Nephrology Referral Priority Routine General Notes Mariela Kingston 11:35:41 AM >received today, sent P2P Reason *FU 09/13 lumbar p ain Diagnosis 1 Lumbar degenerative disc disease (M51.36) Referral Organization On license of [facility] Referring Provider First Name Shantel Referring Provider Last Name Tenisha Referring Provider Specialty [facility] Referred Organization [facility] Referred Provider Terell Soliz Referred Address [address] [place], [place],[address] Referred Provider Specialty Pain Medicin e Referral Priority Routine General Notes EfremMariela costello 03:09:25 PM >received today, waiting for notes to be locked EfremMariela costello 09/06/2023 10:08:29 AM >notes locked, referral faxed Clinical Notes F: [id number] Reason Poorly controlled di abetes Diagnosis 1 Type 2 diabetes maranda itus with hyperglycemia, unspecified whether half-way insulin use (E11.65) Referral Organization [facility] [employer] [facility] helene Referring Provider First Name Shantel Referring Provider Last Name Tenisha Referring Provider Specialty [facility] Signature Referred Organization Unknown Facility Referred Provider Joshua Mcconnell Referred Provider Specialty Internal Med icine Referral Priority Routine Reason tremor and memory lo ss - family history of dementia Diagnosis 1 Tremor of both hands (R25.1) Referral Organization [facility] [employer] helene Referring Provider First Name Shantel Referring Provider Last Name Tenisha Referring Provider Specialty [facility] Signature Referred Organization Unknown Facility Referred Provider Emery [...] and content) DATE CREATED AUTHOR 05/10/2018 [facility] DATE CREATED AUTHOR AUTHOR'S ORGANIZ ATION 03/10/2023 [facility] DATE CREATED AUTHOR AUTHOR'S ORGANIZ ATION 02/20/2024 [facility] DATE CREATED AUTHOR AUTHOR'S ORGANIZ ATION 03/10/2024 [facility] DATE CREATED AUTHOR AUTHOR'S ORGANIZ ATION 03/25/2024 [facility] REASON FOR VISIT (unrecogniz ed [...] End: January 18, 2024 Franchesca Sullivan APRN [employer] Attending Provider Act chiqui Start: January 18, [...] BE BASED ON THE PRIMARY CLINICAL RECORDS. [employer] provides no warranty or guarantee of the accuracy or completeness of information in this document.
--- NOTE | 2024-05-05 08:18 | P.PN_ITS ---
Progress Note: Subjective Subjective Interval history: Patient does look much improved from previous day, alert and oriented Exam Constitutional Vital Signs, click to edit/add: Last Vital Signs Temp 97.9 F 05/05/24 07:45 Pulse 64 05/05/24 07:55 Resp 18 05/05/24 07:45 BP 102/66 05/05/24 07:45 Pulse Ox 95 05/05/24 07:45 O2 Del Method Room Air 05/05/24 07:45 Documenting provider has reviewed patient's vital signs: yes Common normals: no apparent distress Chest Common normals: inspection of chest normal Respiratory Common normals: normal respiratory effort, no retractions and clear to auscultation bilaterally Cardio Common normals: regular rate, regular rhythm and no murmurs GI Common normals: Normal to inspection, nondistended, normoactive bowel sounds present, soft to palpation, non-tender, no hepatosplenomegaly and no masses Extremity Common normals: normal to inspection, full ROM, no clubbing, cyanosis or edema and no calf tenderness Neuro Common normals: oriented x3, CN's II-XII intact bilaterally and moves all extremities Progress Note: Objective Labs Labs: Short CBC 05/04/24 05/05/24 Range/Units 10:51 04:49 WBC 6.9 6.9 (4.0-11.0) 10^3/uL Hgb 12.0 11.1 L (12.0-16.0) g/dL Hct 37.6 33.8 L (36.0-48.0) % Plt Count 160 173 (150-450) 10^3/uL BMP 05/04/24 05/05/24 10:51 04:49 Sodium 134 L 139 Potassium 5.6 H 5.9 H Chloride 101 105 Carbon Dioxide 22.4 24.1 BUN 86.0 H* 69.0 H Creatinine 2.24 H 1.71 H Glucose 369 H 202 H Calcium 8.8 6.1 L Liver Function 05/04/24 05/05/24 Range/Units 10:51 04:49 Total Bilirubin 0.4 0.4 (0.2-1.0) mg/dL AST 8 L 12 L (15-37) U/L ALT 16 17 (14-59) U/L Alkaline Phosphatase 86 74 (46-116) U/L Albumin 2.8 L 2.6 L (3.4-5.0) g/dL Urine 05/04/24 Range/Units 11:40 Urine Color Yellow (YELLOW) Urine Clarity Slightly cloudy A (CLEAR) Urine pH 6.0 (5.0-9.0) Ur Specific [place] 1.015 (1.005-1.025) Urine Protein 100 A (NEG/TRACE) mg/dL Urine Glucose (UA) 250 A (NEGATIVE) mg/dL Progress Note: A&P Assessment and Plan (1) Acute renal failure: (2) Acute dehydration: (3) Hyperkalemia: (4) CKD stage 3a, GFR 45-59 ml/min: (5) Diabetes mellitus with hyperglycemia, with long-term current use of insulin: (6) Hypothyroidism (acquired): Plan Acute respiratory distress, altered mental status, uncontrolled hypertension, acute renal failure on top of chronic kidney disease secondary to diabetes mellitus being uncontrolled-Place patient on sliding scale, suspect infectious etiology. Check urinalysis, also check thyroid profile. Altered mental status likely secondary to uncontrolled diabetes and infectious etiology-urine culture pending Acute renal failure on top of chronic kidney disease-gentle hydration secondary to history of acute combined congestive heart failure and currently elevated BNP although that could be related to her acute renal failure Chronic combined congestive heart failure-check echocardiogram, consider consultation to cardiology Hyperkalemia-2 doses of Kayexalate, monitor daily Thrush-oral Diflucan Tinea corporis in skin folds-ketoconazole Generalized anxiety disorder-continue with home medications Hypertension-continue home medications-will hold off on TOLU inhibitors IDDM-insulin sliding scale Atrial fibrillation-continue with Xarelto Admission status: Patient with acute altered mental status likely infectious etiology, patient with recent discharge so failed outpatient treatment, medically necessary treatment will span 2 midnights. Inpatient status.
--- NOTE | 2024-05-05 08:42 | CM.NOTE ---
Rounds made with Dr. Morales. Plan to place Lasix on HOLD and dc Kayexalate. Kati verbalizes understanding. Medicare Outpatient Observation Notice reviewed and discussed with patient. Pt. verbalized understanding and signed the form. Original given to patient and copy placed in patient?s chart.
--- NOTE | 2024-05-05 08:46 | CM.NOTE ---
Correction: Important Message from [employer] reviewed and discussed with patient. Pt. verbalized understanding and signed the form. Original given to patient and copy placed in patient?s chart.
[2024-05-05] MEDS: METOPROLOL TARTRATE 50 MG TABLET 150 MG PO ×2 (08:50→21:11)
[2024-05-05] MEDS: ENSURE HP 237 ML LIQUID PO ×2 (08:50→21:10)
[2024-05-05] MEDS: MAGNESIUM OXIDE 400 MG TABLET PO ×2 (08:51→21:11)
[2024-05-05] MEDS: FLUCONAZOLE 100 MG TABLET PO (08:51)
[2024-05-05] MEDS: SODIUM ZIRCONIUM CYCLOSILICATE 10 GM POWD.PACK PO ×3 (08:53→21:10)
[2024-05-05] MEDS: INSULIN ASPART 300 UNIT/3 ML PEN SUBQ ×4 (08:55→21:11)
[2024-05-05] MEDS: KETOCONAZOLE 15 APPLIC TUBE TOPICAL ×2 (08:56→21:10)
--- NOTE | 2024-05-05 09:14 | P.PN_ITS ---
Progress Note: Subjective Subjective Interval history: Patient does look much improved from previous day, alert and oriented Exam Constitutional Vital Signs, click to edit/add: Last Vital Signs Temp 97.9 F 05/05/24 07:45 Pulse 64 05/05/24 07:55 Resp 18 05/05/24 07:45 BP 102/66 05/05/24 07:45 Pulse Ox 95 05/05/24 07:45 O2 Del Method Room Air 05/05/24 07:45 Documenting provider has reviewed patient's vital signs: yes Common normals: no apparent distress Chest Common normals: inspection of chest normal Respiratory Common normals: normal respiratory effort, no retractions and clear to auscultation bilaterally Cardio Common normals: regular rate, regular rhythm and no murmurs GI Common normals: Normal to inspection, nondistended, normoactive bowel sounds present, soft to palpation, non-tender, no hepatosplenomegaly and no masses Extremity Common normals: normal to inspection, full ROM, no clubbing, cyanosis or edema and no calf tenderness Neuro Common normals: oriented x3, CN's II-XII intact bilaterally and moves all extremities Progress Note: Objective Labs Labs: Short CBC 05/04/24 05/05/24 Range/Units 10:51 04:49 WBC 6.9 6.9 (4.0-11.0) 10^3/uL Hgb 12.0 11.1 L (12.0-16.0) g/dL Hct 37.6 33.8 L (36.0-48.0) % Plt Count 160 173 (150-450) 10^3/uL BMP 05/04/24 05/05/24 10:51 04:49 Sodium 134 L 139 Potassium 5.6 H 5.9 H Chloride 101 105 Carbon Dioxide 22.4 24.1 BUN 86.0 H* 69.0 H Creatinine 2.24 H 1.71 H Glucose 369 H 202 H Calcium 8.8 6.1 L Liver Function 05/04/24 05/05/24 Range/Units 10:51 04:49 Total Bilirubin 0.4 0.4 (0.2-1.0) mg/dL AST 8 L 12 L (15-37) U/L ALT 16 17 (14-59) U/L Alkaline Phosphatase 86 74 (46-116) U/L Albumin 2.8 L 2.6 L (3.4-5.0) g/dL Urine 05/04/24 Range/Units 11:40 Urine Color Yellow (YELLOW) Urine Clarity Slightly cloudy A (CLEAR) Urine pH 6.0 (5.0-9.0) Ur Specific [place] 1.015 (1.005-1.025) Urine Protein 100 A (NEG/TRACE) mg/dL Urine Glucose (UA) 250 A (NEGATIVE) mg/dL Progress Note: A&P Assessment and Plan (1) Acute renal failure: (2) Acute dehydration: (3) Hyperkalemia: (4) CKD stage 3a, GFR 45-59 ml/min: (5) Diabetes mellitus with hyperglycemia, with long-term current use of insulin: (6) Hypothyroidism (acquired): Plan Acute respiratory distress, altered mental status, uncontrolled hypertension, acute renal failure on top of chronic kidney disease secondary to diabetes mellitus being uncontrolled-Place patient on sliding scale, suspect infectious etiology. This appears to be positive, continue with current antibiotics Altered mental status likely secondary to uncontrolled diabetes and infectious etiology-check on urine culture tomorrow continue with antibiotics Hyponatremia-improved to baseline Hypomagnesemia-supplement Acute renal failure on top of chronic kidney disease-continue with gentle hydration, her baseline creatinine is actually 1.14-this had progressed to 2.24 on admission which is 196.5% above baseline. Her creatinine is improved today but still 150% above baseline Chronic combined congestive heart failure-check echocardiogram, consider consultation to cardiology-no peripheral edema and lung exam is clear, BNP is higher today. Continue to monitor. Hold off on further diuretics Hyperkalemia-received 2 doses of Kayexalate yesterday without significant improvement in fact it is worse today, will try Priscilla for 3 doses Thrush-oral Diflucan Tinea corporis in skin folds-ketoconazole Generalized anxiety disorder-continue with home medications Hypertension-continue home medications-will hold off on TOLU inhibitors IDDM-insulin sliding scale-continue with that, she did have some low times. Atrial fibrillation-continue with Xarelto Admission status: Patient with acute altered mental status likely infectious etiology, patient with recent discharge so failed outpatient treatment, medically necessary treatment will span 2 midnights. Inpatient status. 2-3 more day hospital stay likely. ?
[2024-05-05] MEDS: CIPROFLOXACIN IN 5 % DEXTROSE 400 MG/200 ML PIGGYBACK 125 MG IV (09:49)
--- NOTE | 2024-05-05 10:28 | SWNOTE1 ---
SW attempted to see pt, but pt was sleeping. SW to check back later today.
--- NOTE | 2024-05-05 11:38 | SWNOTE1 ---
SW checked therapy notes and PT did recommend HH, but pt refusing at this time. SW to check with pt.
[2024-05-05] MEDS: CEFTRIAXONE 1,000 MG in 0.9 % SODIUM CHLORIDE 50 ML 100 MG IV (13:37)
--- NOTE | 2024-05-05 13:53 | SWNOTE1 ---
SW stopped in to speak with pt, student nurse was in room as well. SW spoke to pt about home health. She is not sure she wants it. She stated she will speak with her when he comes in and let SW know. Pt was falling asleep at end of conversation. SW to stop back tomorrow and offer HH again if recommended.
[2024-05-05] MEDS: ONDANSETRON PF 4 MG/2 ML VIAL IV (14:17)
[2024-05-05] MEDS: ALPRAZOLAM 0.25 MG TABLET PO (15:33)
[2024-05-05] MEDS: RIVAROXABAN 10 MG TABLET 20 MG PO (17:15)
[2024-05-05] MEDS: 0.9 % SODIUM CHLORIDE 1,000 ML 50 ML IV (19:28)
[2024-05-05] MEDS: CIPROFLOXACIN IN 5 % DEXTROSE 400 MG/200 ML PIGGYBACK 200 MG IV (21:11)
[2024-05-05] MEDS: INSULIN DETEMIR 300 UNIT/3 ML INSULN.PEN 35 UNIT SUBQ (21:12)
[2024-05-06] VITALS (8 sets, daily range): BP systolic 125–145; BP diastolic 68–76; PULSE 57–73; TEMP 36.4–36.7; O2SAT 93–96
[2024-05-06 04:44] LABS: Basophils Absolute Auto 0.1 10^3/uL (0.0-0.1); Basophils Percent Auto 0.9 % (0.2-2.0); Eosinophils Absolute Auto 0.2 10^3/uL (0.0-0.7); Eosinophils Percent Auto 2.7 % (0.9-7.0); Hematocrit 34.6 % (36.0-48.0); Hemoglobin 11.1 g/dL (12.0-16.0); Immature Granulocytes Abs Auto 0.01 10^3/uL (0.00-0.03); Immature Granulocytes Pct Auto 0.1 % (0.0-0.5); Lymphocytes Absolute Auto 1.5 10^3/uL (1.2-3.8); Lymphocytes Percent Auto 21.8 % (20.5-60.0); Mean Corpuscular HGB Conc 32.1 g/dL (29.9-35.2); Mean Corpuscular Volume 90.3 fL (81.0-99.0); Mean Platelet Volume 11.3 fL (9.5-13.5); Monocytes Absolute Auto 0.7 10^3/uL (0.3-0.8); Monocytes Percent Auto 10.6 % (1.7-12.0); Neutrophils Absolute Auto 4.3 10^3/uL (1.4-6.5); Neutrophils Percent Auto 63.9 % (43.0-75.0); Platelet Count 146 10^3/uL (150-450); Red Blood Count 3.83 10^6/uL (4.20-5.40); Red Cell Distribution Width 13.5 % (11.0-15.0); White Blood Count 6.7 10^3/uL (4.0-11.0)
[2024-05-06 05:08] LABS: Alanine Aminotransferase 16 U/L (14-59); Albumin Globulin Ratio 0.6; Albumin Level 2.5 g/dL (3.4-5.0); Alkaline Phosphatase 75 U/L (46-116); Anion Gap 12.4; Aspartate Amino Transferase 11 U/L (15-37); Bilirubin Total 0.4 mg/dL (0.2-1.0); Calcium 8.4 mg/dL (8.5-10.1); Carbon Dioxide 25.7 mmol/L (21.0-32.0); Chloride 107 mmol/L (98-107); Estimated GFR (African America 38 (>=60); Estimated GFR (Non-African Ame 32 (>=60); Globulin 4.3 g/dL; Glucose 146 mg/dL (74-106); Magnesium 1.6 mg/dL (1.8-2.4); Potassium 4.1 mmol/L (3.5-5.1); Sodium 141 mmol/L (136-145); Total Protein 6.8 g/dL (6.4-8.2); Troponin I High Sensitivity 13.2 pg/mL (4.0-51.3)
[2024-05-06] MEDS: LEVOTHYROXINE SODIUM 125 MCG TABLET PO (05:12)
--- NOTE | 2024-05-06 07:53 | CM.NOTE ---
Rounds made with Dr. Morales. Plan for discharge today. Follow up with PCP later this week. Kati verbalizes understanding.
[2024-05-06] MEDS: OXYCODONE HCL/ACETAMINOPHEN 5MG/325MG 1 TAB PO (08:00)
[2024-05-06] MEDS: INSULIN ASPART 300 UNIT/3 ML PEN SUBQ ×2 (08:02→11:29)
[2024-05-06] MEDS: METOPROLOL TARTRATE 50 MG TABLET 150 MG PO (08:54)
[2024-05-06] MEDS: KETOCONAZOLE 15 APPLIC TUBE TOPICAL (08:54)
[2024-05-06] MEDS: FLUCONAZOLE 100 MG TABLET PO (08:54)
[2024-05-06] MEDS: MAGNESIUM OXIDE 400 MG TABLET PO (08:54)
--- NOTE | 2024-05-06 09:55 | P.DS_ITS ---
DS: Providers Provider Date of admission: 05/04/24 12:10 Primary care physician: Theodora Cuevas MD Consults: 05/04/24 12:05 Consult to Pharmacy Routine Consulting Provider: Reason for consultation: Please [place] me when Med Rec is Updated Has provider been notified: No Occupational Therapy Eval and Treat Routine Reason for consultation: Only if needed for Rehab Has provider been notified: No Physical Therapy Eval and Treat Routine Reason for consultation: Eval and Treat Has provider been notified: No DS: Diagnosis Discharge Diagnosis (1) Acute renal failure: (2) Acute dehydration: (3) Hyperkalemia: (4) CKD stage 3a, GFR 45-59 ml/min: (5) Diabetes mellitus with hyperglycemia, with long-term current use of insulin: (6) Hypothyroidism (acquired): Plan Admission findings: Acute respiratory distress, altered mental status, uncontrolled hypertension, acute renal failure on top of chronic kidney disease secondary to diabetes mellitus being uncontrolled-Place patient on sliding scale, suspect infectious etiology. With acute UTI secondary to E. coli- improving at the time of discharge Altered mental status likely secondary to uncontrolled diabetes and infectious etiology-resolved at the time of discharge Hyponatremia-resolved with time of discharge Hypomagnesemia-supplement Acute renal failure on top of chronic kidney disease-still elevated at the time of discharge 138% above baseline today. But overall much improved at discharge Chronic combined congestive heart failure-check echocardiogram, consider consultation to cardiology-stable at the time of discharge off of diuretics Hyperkalemia-received 2 doses of Kayexalate yesterday without significant improvement in fact it is worse today, will try Priscilla for 3 doses-resolved at the time of discharge Thrush-oral Diflucan Tinea corporis in skin folds-ketoconazole Generalized anxiety disorder-continue with home medications Hypertension-continue home medications-will hold off on TOLU inhibitors and blood pressure stable at discharge IDDM-insulin sliding scale-continue with that, she did have some low times. Atrial fibrillation-continue with Xarelto Admission status: Patient with acute altered mental status likely infectious etiology, patient with recent discharge so failed outpatient treatment, medically necessary treatment will span 2 midnights. Inpatient status. 2-3 more day hospital stay likely. ? DS: Summary Hospital Course Hospital Course: Patient was admitted with increasing weakness and altered mental status. Her mentation improved after the first day. This was felt to be multifactorial with acute renal failure with creatinine 200% above baseline, that is improving at the time of discharge she also had acute UTI secondary to E. coli. Sensitive to current antibiotic regiment. Although she is not back to baseline she is much improved. She feels stable for going home today. Will discharge patient to home, continue hold off on lisinopril and diuretics, blood pressure here is excellent have her follow-up with her PCP early in this week. For close follow- up on blood pressure. Medications see list. Status at Discharge Overall status at discharge: patient is not back to baseline Time Spent with Patient Time attestation: Total time spent providing and/or coordinating discharge services: Time spent: greater than 30 minutes Exam Constitutional Vital Signs, click to edit/add: Last Vital Signs Temp 97.7 F 05/06/24 08:00 Pulse 61 05/06/24 08:00 Resp 18 05/06/24 08:00 BP 125/76 05/06/24 08:00 Pulse Ox 96 05/06/24 08:00 O2 Del Method Room Air 05/06/24 08:00 Documenting provider has reviewed patient's vital signs: yes Common normals: no apparent distress Chest Common normals: inspection of chest normal Respiratory Common normals: normal respiratory effort, no retractions and clear to auscultation bilaterally Cardio Common normals: regular rate, regular rhythm and no murmurs GI Common normals: Normal to inspection, nondistended, normoactive bowel sounds present, soft to palpation, non-tender, no hepatosplenomegaly and no masses Extremity Common normals: normal to inspection, full ROM, no clubbing, cyanosis or edema and no calf tenderness Neuro Common normals: oriented x3, CN's II-XII intact bilaterally and moves all extremities DS: Data Data Completed and Pending Labs on day of discharge: Labs from last 24 hours 05/06/24 04:27 WBC 6.7 RBC 3.83 L Hgb 11.1 L Hct 34.6 L MCV 90.3 MCH 29.0 MCHC 32.1 RDW 13.5 Plt Count 146 L MPV 11.3 Neut % (Auto) 63.9 Lymph % (Auto) 21.8 [place] % (Auto) 10.6 Eos % (Auto) 2.7 Baso % (Auto) 0.9 Neut # (Auto) 4.3 Lymph # (Auto) 1.5 [place] # (Auto) 0.7 Eos # (Auto) 0.2 Baso # (Auto) 0.1 Abs Immat Gran (auto) 0.01 Imm/Tot Granulo (auto) 0.1 Sodium 141 Potassium 4.1 Chloride 107 Carbon Dioxide 25.7 Anion Gap 12.4 BUN 49.0 H Creatinine 1.58 H Est GFR ( Amer) 38 L Est GFR (Non-Af Amer) 32 L BUN/Creatinine Ratio 31.0 Glucose 146 H Calcium 8.4 L Magnesium 1.6 L Total Bilirubin 0.4 AST 11 L ALT 16 Alkaline Phosphatase 75 Troponin I High Sens 13.2 NT-Pro-B Natriuret Pep 2762.0 H* Total Protein 6.8 Albumin 2.5 L Globulin 4.3 Albumin/Globulin Ratio 0.6 Discharge Plan Discharge Disposition: Home, Self-Care Discharge Medications: New cefdinir 300 mg capsule 600 mg PO DAILY Qty: 14 0RF Continued insulin glargine [Lantus Solostar U-100 Insulin] 100 unit/mL (3 mL) insulin pen 35 unit SUBCUT BEDTIME metoprolol tartrate 100 mg tablet 150 mg PO BID Xarelto 20 mg tablet 20 mg PO QPM Rx Instructions: must administer with evening meal insulin asp prt-insulin aspart [Novolog Mix 70-30FlexPen U-100] 100 unit/mL (70-30) insulin pen 35 unit subcut DAILY Rx Instructions: USE DIRECTED PER SLIDING SCALE- MAX 35 UNITS DAILY levothyroxine 125 mcg tablet 125 mcg PO .acb alprazolam 0.25 mg tablet 0.25 mg PO TID PRN (Reason: anxiety) Patient Comments: 0.25mg PO TID PRN for anxiety oxycodone-acetaminophen 5-325 mg tablet 1 tab PO BID PRN (Reason: pain) Discontinued lisinopril 20 mg tablet 20 mg PO DAILY spironolactone 50 mg tablet 50 mg PO DAILY Qty: 30 0RF Hold Instructions: Until follow up appt w/ PCP to discuss dosing furosemide 40 mg tablet 20 mg PO BID Hold Instructions: Until follow up appt w/ PCP to discuss dosing Patient Comments: Was told to only take half of this med as of 04/29/2024 Print Language: Belizean Forms: Portal Instructions Follow Up Appointments: Dr Theodora Cuevas.Jackelin 05/08/24 at 1030. [phone]
--- NOTE | 2024-05-06 09:58 | SWNOTE1 ---
SW spoke to pt about HH again. SW advised pt again that HH is covered under her insurance. SW also advised pt that for her safety HH is recommended and it would be beneficial to prevent her from coming back to hospital. Pt did voice she did not think about it that way and she wants to speak to her that will be coming in shortly. SW to check back in 20 minutes.
--- NOTE | 2024-05-06 10:09 | PT.DAILY ---
Physical Therapy Daily Note PT Daily Note/Assess Start: 05/06/24 10:07 Freq: Status: Active Protocol: Document 05/06/24 10:07 GALO (Rec: 05/06/24 10:08 GALO [id number]) Visit Not Completed Visit Not Completed Visit Not Completed Due to: Pt refusing,Other Other Reason Visit Not Completed Pt supine upon arrival. Very pleasant. Pt reports she would like to rest and wait for her . He is coming to pick her up to take her home once they figure out what home health provider they want. Confirmed this with nursing and Nitin planned dc this morning. Physical Therapy Daily Note/Assessment Time In/Time Out Time In 09:30 Time Out 09:35 Pain In Pain N/A Pain Out Pain N/A GG. Functional Abilities and Goals-Complete for Swing Bed Patients Only [id number]. Self-Care [id number]. Mobility
--- NOTE | 2024-05-06 10:19 | SWNOTE1 ---
SW spoke with pt and in room in regards to HH. Pt's is agreeable to HH as well as pt. SW provided with medicare.gov 5 star rating list. Pt and chose [facility] as first choice. Referral sent to [facility].. Referral included face sheet, ED note, H&P, provider notes, case management report,, med list, and PT/OT notes.
[2024-05-06] MEDS: CIPROFLOXACIN IN 5 % DEXTROSE 400 MG/200 ML PIGGYBACK 200 MG IV (10:45)
--- NOTE | 2024-05-06 12:31 | SWNOTE1 ---
[facility] is able to accept. BIJAL sent over CRF, discharge summary, and dc med rec. BIJAL let nursing know.
--- NOTE | 2024-05-07 14:23 | CM.DCFOLLOWU ---
Person spoke with: Kati How are you feeling? sick as a dog How is your pain? NA Did you understand your discharge instructions? yes Do you have any questions about your discharge instructions? no Were you given any prescriptions at discharge? yes-adjusted Were you able to get your prescriptions filled? yes Do you understand how to take your medications as ordered? yes Do you have any questions about your follow up appointment and do you plan to keep your follow up appointment? Yes, I seen my PCP today and she is setting me up with a Neprhologist. Is there anything else that you would like to discuss? Advised to come to the ER if she continues to decline. Kati agreed she would come in if need be. Questions/Comments/Concerns/Other:
== END 2024-05-06 12:10 | disposition home health service (06) | DRG 683 ==
LOC: ER 11:51 → MS 12:25
PROVIDERS: Admitting Provider Family Medicine; Emergency Provider Emergency Medicine Emergency Medical Services; PCP Family Medicine; Visit Provider Family Medicine
DX: N17.9 Acute kidney failure, unspecified (principal); B37.0 Candidal stomatitis; I13.0 Hypertensive heart and chronic kidney disease with heart failure and stage 1 through stage 4 chronic kidney disease, or unspecified chronic kidney disease; I50.42 Chronic combined systolic (congestive) and diastolic (congestive) heart failure; Z68.41 Body mass index [BMI] 40.0-44.9, adult; E87.1 Hypo-osmolality and hyponatremia; N39.0 Urinary tract infection, site not specified; B96.20 Unspecified Escherichia coli [E. coli] as the cause of diseases classified elsewhere; E86.0 Dehydration; E87.5 Hyperkalemia; E11.65 Type 2 diabetes mellitus with hyperglycemia; E11.22 Type 2 diabetes mellitus with diabetic chronic kidney disease; E03.9 Hypothyroidism, unspecified; E83.42 Hypomagnesemia; N18.31 Chronic kidney disease, stage 3a; I25.10 Atherosclerotic heart disease of native coronary artery without angina pectoris; E66.01 Morbid (severe) obesity due to excess calories; B35.4 Tinea corporis; F41.1 Generalized anxiety disorder; I48.91 Unspecified atrial fibrillation; K21.9 Gastro-esophageal reflux disease without esophagitis; I48.0 Paroxysmal atrial fibrillation; Z79.4 Long term (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 insulin; Z79.899 Other long term (current) drug therapy; Z79.890 Hormone replacement therapy; Z88.2 Allergy status to sulfonamides; Z91.013 Allergy to seafood; Z85.3 Personal history of malignant neoplasm of breast; Z90.13 Acquired absence of bilateral breasts and nipples; Z82.49 Family history of ischemic heart disease and other diseases of the circulatory system; Z83.3 Family history of diabetes mellitus; Z79.01 Long term (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 anticoagulants
CPT/HCPCS: 36415; 36416; 36569; 36592; 70450; 71045; 80048; 80053; 81001; 82009; 82140; 82800; 82948; 83605; 83735; 83880; 84436; 84443; 84484; 85025; 87040; 87086; 87150; 87186; 93005; 94667; 94668; 94761; 96361; 96365; 96366; 96367; 96375; 96376; 97161; 97165; 97530; 99285; C1887; J0696; J0744; J2405

== ENCOUNTER 2024-05-20 15:41 | Outpatient (OUT) | payer MEDICARE, SELFPAY ==
[2024-05-20 16:52] LABS: Anion Gap 15.7; BUN Creatinine Ratio 26.5; Calcium 8.8 mg/dL (8.5-10.1); Carbon Dioxide 24.3 mmol/L (21.0-32.0); Chloride 103 mmol/L (98-107); Estimated GFR (African America 47 (>=60); Estimated GFR (Non-African Ame 39 (>=60); Glucose 243 mg/dL (74-106); Sodium 138 mmol/L (136-145)
== END 2024-05-20 15:42 | disposition home or self-care (01) ==
LOC: LAB 15:42
PROVIDERS: PCP Family Medicine; Visit Provider Nurse Practitioner
DX: I25.10 Atherosclerotic heart disease of native coronary artery without angina pectoris (principal); I50.33 Acute on chronic diastolic (congestive) heart failure
CPT/HCPCS: 36415; 80048

== ENCOUNTER 2024-05-26 05:54 | Emergency (ER) | payer MEDICARE, SELFPAY ==
[2024-05-26 05:58] VITALS: BP 154/68; PULSE 68; TEMP 36.6; O2SAT 94; BMI 41.6
--- NOTE | 2024-05-26 06:12 | CT_ITS ---
[address] [address] Patient Name: JOE CALL MRN: [id number] date: 1945 Sex: F Assigned Patient Location: ER Current Patient Location: ER Accession/Order Number: [id number] Exam Date: 05/26/2024 06:46 Report Date: 05/26/2024 07:45 At the request of: RAMAKRISHNA MARKER Procedure: CT soft tissue neck wo con EXAMINATION: CT soft tissue neck wo con HISTORY: dyspahgia COMPARISON: No relevant comparison available. TECHNIQUE: Axial, Coronal, and Sagittal CT images created with IV contrast. Dose reduction techniques were achieved by using automated exposure control and/or adjustment of mA and/or kV according to patient size and/or use of iterative reconstruction technique. FINDINGS: Limited noncontrast exam NASOPHARYNX: No focal mass. ORAL CAVITY: No visible mass. OROPHARYNX: No asymmetry of the facial and lingual tonsils. HYPOPHARYNX: No mass or other visible lesion. LARYNX: No mass or asymmetry of the vocal cords. SINUSES: No significant fluid or mucosal thickening. NECK GLADS: No visible abnormality of the parotid, submandibular, and thyroid glands. LYMPH NODES: No pathological-appearing or enlarged lymph nodes. VASCULATURE: No suspicious abnormality. BONES: Moderate degenerative spondylosis. Suspected 4 mm disc herniation C4-C5 best seen on sagittal image 30 OTHER: No additional imaging findings. CT/CT soft tissue neck wo con IMPRESSION: Limited noncontrast exam with no airway narrowing or definitive mass 4 mm C4-C5 disc herniation suspected Electronically authenticated by: NICOLAS BRISCOE Date: 05/26/2024 07:45
--- NOTE | 2024-05-26 06:13 | ECG_ITS ---
[facility] Test Date: 2024-05-26 Pat Name: JOE CALL Department: Room: - Gender: Female Nurse Specialist: : 1945 Requested By: SHANTEL STEVEN Order Number: [id number] Reading MD: CARRIE FAULKNER Measurements Intervals Siren Rate: 64 P: 68 DC: 174 QRS: 29 QRSD: 96 T: 66 QT: 422 QTc: 431 Interpretive Statements 1100 Sinus rhythm 3114 Cannot rule out anterior myocardial infarction, age undetermined 9150 abnormal ECG Compared to ECG 05/04/2024 09:31:22 Myocardial infarct finding now present Electronically Signed On 05-27-2024 5:22:16 EDT by CARRIE FAULKNER
--- NOTE | 2024-05-26 06:14 | ED.GENADUL1 ---
Documented by User: Michela Medrano MD 05/26/24 06:43 HPI HPI - General Adult General Chief complaint: Upper Respiratory Infection Stated complaint: throat pain Time Seen by Provider: 05/26/24 05:57 Source: patient and family Mode of arrival: Wheelchair Limitations: no limitations History of Present Illness HPI narrative: This 78-year-old female with a history of diabetes, kidney disease, coronary artery disease with congestive heart failure and a history of breast cancer presents for evaluation of sore throat and pain with swallowing for the past 3 weeks. She states she thinks she has lost between 5 and 10 pounds. She states she is drinking water and eating applesauce only because that is all she can swallow. The patient states that her made her scrambled eggs this morning but she was unable to swallow them so he brought her to the emergency department. She has been seen by her family physician and referred to a specialist however she does not know who that specialist is or what specialty the physician is in. Her states she is also scheduled to have a CAT scan sometime next week. The patient has had an intermittent low-grade fever around 100 ?F. She was formally on diuretics for her congestive heart failure but the states she has recently been taken off of them. She was admitted last month for dehydration and confusion. She denies any chest pain or shortness of breath at this time. Related Data Home Medications ?Medication ?Instructions ?Recorded ?Confirmed insulin glargine 100 unit/mL (3 35 unit subcut BEDTIME 04/25/23 05/04/24 mL) subcutaneous pen (Lantus Solostar U-100 Insulin) metoprolol tartrate 100 mg tablet 150 mg PO BID 04/25/23 05/04/24 rivaroxaban 20 mg tablet (Xarelto) 20 mg PO QPM 04/25/23 05/04/24 insulin aspar prot-insulin aspart 35 unit subcut DAILY 07/08/23 05/04/24 100 unit/mL (70-30) subcutaneous pen (Novolog Mix 70-30FlexPen U-100) alprazolam 0.25 mg tablet 0.25 mg PO TID PRN anxiety 04/30/24 05/04/24 levothyroxine 125 mcg tablet 125 mcg PO .acb 04/30/24 05/04/24 oxycodone-acetaminophen 5 mg-325 1 tab PO BID PRN pain 04/30/24 05/04/24 mg tablet Previous Rx's ?Medication ?Instructions ?Recorded cefdinir 300 mg capsule 600 mg (2 x 300 mg) PO DAILY #14 05/06/24 caps Allergies Allergy/AdvReac Type Severity Reaction Status Date / Time Sulfa (Sulfonamide Allergy Rash Verified 05/26/24 06:01 Antibiotics) Opioid HPI Opioid Management Most Recent Opioid Data: Last Pain Scale 3 05/06/24 12:00 Last ORT Total Score 0 05/04/24 13:35 Last ORT Risk Category Low Risk 05/04/24 13:35 Review of Systems ROS Status of ROS 10 or more systems reviewed and unremarkable except as noted in history and below [facility] Medical History (Updated 05/26/24 @ 06:34 by Michela Medrano MD) Acute renal failure ?N17.9 - Acute kidney failure, unspecified (ICD-10) Hyperkalemia ?E87.5 - Hyperkalemia (ICD-10) Acute dehydration ?E86.0 - Dehydration (ICD-10) CKD stage 3a, GFR 45-59 ml/min ?N18.31 - Chronic kidney disease, stage 3a (ICD-10) Diabetes mellitus with hyperglycemia, with long-term current use of insulin ?E11.65 - Type 2 diabetes mellitus with hyperglycemia (ICD-10) ?Z79.4 - prison (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9 - Obesity, unspecified (ICD-10) Surgical History (Updated 03/26/24 @ 06:36 by Brooke Conrad) H/O bilateral mastectomy ?Z90.13 - Acquired absence of bilateral breasts and nipples (ICD-10) Family History (Updated 07/08/23 @ 04:02 by Mira Addison) Other Family history of CHF (congestive heart failure) Family history of cancer Family history of diabetes mellitus Family history of hypertension H/O mastectomy Social History (Updated 03/26/24 @ 06:38 by Brooke Conrad) Within the past year, how often did you have a drink containing alcohol: never Within the past year, how often did you have six or more drinks on one occasion: never Score interpretation: A score less than 3 is consistent with normal alcohol consumption. 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 Highest level of school completed/degree received: some college, no degree Do you want help with school or training: No Are you now , , , , never or living with a partner: In a typical week, how many times do you talk on the telephone with family, friends, or neighbors: 3 or more times per week How often do you get together with friends or relatives: 3 or more times per week How often do you attend baptist or gnosticism services: never Do you belong to any clubs or organizations such as baptist groups unions, fraternal or athletic groups, or school groups: no Total score: 2 Score interpretation: A score of greater than or equal to 2 indicates the lowest level of social isolation. Little interest or pleasure in doing things: not at all Feeling down, depressed, or hopeless: not at all Feel stressed/tense/nervous/anxious/difficulty sleeping: not at all Due to disability, difficulty making decisions: No Do you think of yourself as: straight/heterosexual Gender Identity: female Exam Narrative Exam Narrative: Vital signs and Nursing Notes reviewed: Patient is afebrile with a normal pulse, blood pressure is mildly elevated at 154/68, she was borderline hypoxic with a pulse ox of 94% on room air General: Obese elderly female lying comfortably on the stretcher, her speech is clear, no respiratory distress HEENT: Normocephalic atraumatic, mucous membranes are moist and pink, eyes are clear, normal conjunctiva, vision is grossly intact, posterior pharynx is normal in appearance without erythema or exudate, uvula is midline without notable abnormality, no appreciable posterior pharyngeal cobblestoning Neck: Supple, no meningeal signs, no anterior or posterior cervical lymphadenopathy, trachea is midline, no abnormal thyroid masses noted Chest: Lungs are clear to auscultation with good air entry, there is no wheezing rhonchi or rales appreciated no accessory muscle use, patient is speaking in complete sentences-no chest wall tenderness to palpation CVS: Regular rate and rhythm S1-S2, no murmurs rubs or gallops, pulses are brisk and equal bilaterally ABD: Obese, soft, nondistended, nontender, no rebound guarding or rigidity, bowel sounds are normal, no pulsatile masses appreciated Extremities: Moving all extremities, marked lymphedema of the left upper extremity, 1+ pitting edema to the lower extremities bilaterally Skin: Normal in appearance without rash,pallor, petechiae or purpura Neuro: No focal deficits, speech is clear, no facial droop, upper and lower extremity strength and sensation is intact Constitutional Vital Signs, click to edit/add: Last Vital Signs Temp 98 F 05/26/24 05:58 Pulse 05/26/24 05:58 Resp 05/26/24 05:58 BP 154/68 H 05/26/24 05:58 Pulse Ox 94 L 05/26/24 05:58 O2 Del Method Room Air 05/26/24 05:58 Course Vital Signs Vital signs: Vital Signs Temperature 98 F 05/26/24 05:58 Pulse Rate 05/26/24 05:58 Respiratory Rate 05/26/24 05:58 Blood Pressure 154/68 H 05/26/24 05:58 Pulse Oximetry 94 L 05/26/24 05:58 Oxygen Delivery Method Room Air 05/26/24 05:58 Temperature 98 F 05/26/24 05:58 Pulse Rate 05/26/24 05:58 Respiratory Rate 05/26/24 05:58 Blood Pressure 154/68 H 05/26/24 05:58 Pulse Oximetry 94 L 05/26/24 05:58 Oxygen Delivery Method Room Air 05/26/24 05:58 Medical Decision Making MDM Narrative Medical decision making narrative: This 78-year-old female with a history of diabetes, chronic kidney disease, hypertension, breast cancer with left upper extremity lymphedema is brought to the emergency department by her for evaluation of 3 days of dysphagia. The patient states that it hurts her to swallow so she has only been eating applesauce and drinking water. She denies any chest pain or shortness of breath. She was recently seen by her family physician and referred to a specialist however neither the patient nor her can recall the name of the specialist nor what here she specializes in. The patient's vital signs were stable with a mildly low pulse ox of 94% on room air. Her HEENT exam is benign. Her neck is supple. Trachea is midline, there is no stridor or appreciable masses. Lungs are clear, abdomen is soft. There is some mild lower extremity edema which is likely chronic in nature as the patient has been on Lasix in the past. Her states she has not been using any lozenges because they make her sugar go high and she has not tried any sugar-free lozenges. She is not having any pooling of secretions, her voice is clear, HEENT exam was benign. I ordered a strep test, mono, CBC with differential, TSH comprehensive metabolic profile, BNP and troponin. A non contrast CT scan of the neck was also ordered to further evaluate her complaint of dysphagia. I ordered gentle hydration for her with NS at 100ml/hr as she was most recently admitted for dehydration. Medical Records Medical records reviewed: Yes I reviewed the patient's medical records Lab Data Labs: Lab Results 05/26/24 05/26/24 Range/Units 06:22 06:32 WBC 7.3 (4.0-11.0) 10^3/uL RBC 3.95 L (4.20-5.40) 10^6/uL Hgb 12.0 (12.0-16.0) g/dL Hct 35.9 L (36.0-48.0) % MCV 90.9 (81.0-99.0) fL MCH 30.4 (26.7-34.0) pg MCHC 33.4 (29.9-35.2) g/dL RDW 14.0 (11.0-15.0) % Plt Count 215 (150-450) 10^3/uL MPV 10.6 (9.5-13.5) fL Neut % (Auto) 68.8 (43.0-75.0) % Lymph % (Auto) 18.4 L (20.5-60.0) % [place] % (Auto) 9.5 (1.7-12.0) % Eos % (Auto) 2.1 (0.9-7.0) % Baso % (Auto) 1.1 (0.2-2.0) % Neut # (Auto) 5.0 (1.4-6.5) 10^3/uL Lymph # (Auto) 1.3 (1.2-3.8) 10^3/uL [place] # (Auto) 0.7 (0.3-0.8) 10^3/uL Eos # (Auto) 0.2 (0.0-0.7) 10^3/uL Baso # (Auto) 0.1 (0.0-0.1) 10^3/uL Abs Immat Gran (auto) 0.01 (0.00-0.03) 10^3/uL Imm/Tot Granulo (auto) 0.1 (0.0-0.5) % Sodium 140 (136-145) mmol/L Potassium 4.0 (3.5-5.1) mmol/L Chloride 104 (98-107) mmol/L Carbon Dioxide 26.7 (21.0-32.0) mmol/L Anion Gap 13.3 BUN 33.0 H (7.0-18.0) mg/dL Creatinine 1.29 H (0.55-1.02) mg/dL Est GFR ( Amer) 49 L (>=60) Est GFR (Non-Af Amer) 40 L (>=60) BUN/Creatinine Ratio 25.6 Glucose 233 H (74-106) mg/dL Calcium 8.9 (8.5-10.1) mg/dL Total Bilirubin 0.5 (0.2-1.0) mg/dL AST 12 L (15-37) U/L ALT 20 (14-59) U/L Alkaline Phosphatase 88 (46-116) U/L Troponin I High Sens 14.9 (4.0-51.3) pg/mL NT-Pro-B Natriuret Pep 2687.0 H* (<=1800.0) pg/mL Total Protein 7.1 (6.4-8.2) g/dL Albumin 2.7 L (3.4-5.0) g/dL Globulin 4.4 g/dL Albumin/Globulin Ratio 0.6 Free T4 1.19 (0.76-1.46) ng/dL TSH & Free T4 Interp 4.487 H (0.358-3.740) uIU/mL Monoscreen Negative (NEGATIVE) SARS-CoV-2 RNA (FERN) Not detected (NOT DETECTE) Streptococcus Screen Negative Imaging Data CT soft tissue neck: Radiologist's impression: ITS Impressions Soft Tissue Neck CT 05/26/24 06:12 IMPRESSION: Limited noncontrast exam with no airway narrowing or definitive mass 4 mm C4-C5 disc herniation suspected Electronically authenticated by: NICOLAS BRISCOE Date: 05/26/2024 07:45 ECG Data Attestation: I personally reviewed and interpreted this ECG as follows: (Sinus rhythm at 64 bpm, normal axis, interpretation limited by patient movement, no acute ST segment elevation or T wave inversion) Discharge Plan Discharge Stand Alone Forms: Portal Instructions Chief Complaint: Upper Respiratory Infection Clinical Impression: Dysphagia Patient Disposition: Home, Self-Care Time of Disposition Decision: 08:11 Condition: Good Mode of Transportation: Private Vehicle Prescriptions / Home Meds: No Action insulin glargine [Lantus Solostar U-100 Insulin] 100 unit/mL (3 mL) insulin pen 35 unit SUBCUT BEDTIME metoprolol tartrate 100 mg tablet 150 mg PO BID Xarelto 20 mg tablet 20 mg PO QPM Rx Instructions: must administer with evening meal insulin asp prt-insulin aspart [Novolog Mix 70-30FlexPen U-100] 100 unit/mL (70-30) insulin pen 35 unit subcut DAILY Rx Instructions: USE DIRECTED PER SLIDING SCALE- MAX 35 UNITS DAILY levothyroxine 125 mcg tablet 125 mcg PO .acb alprazolam 0.25 mg tablet 0.25 mg PO TID PRN (Reason: anxiety) Patient Comments: 0.25mg PO TID PRN for anxiety oxycodone-acetaminophen 5-325 mg tablet 1 tab PO BID PRN (Reason: pain) cefdinir 300 mg capsule 600 mg PO DAILY Qty: 14 0RF Print Language: Citizen [place] Instructions: Dysphagia (ED) Additional Instructions: Call the office of your primary care doctor to arrange for follow-up within the above-stated timeframe. Your ED visit was focused on your acute issue and does not replace primary care. You should review your labs, imaging, and diagnoses from this ED visit with your primary care physician. There may be non-emergent/ incidental findings that need further evaluation. You should review your vital signs including blood pressure with your PCP. If you were prescribed medications you should discuss possible side-effects and drug interactions with your pharmacist. Call 911 or go to the nearest Emergency Department if you develop any new or worsening symptoms. Referrals: Ct Arnold MD [Physician] - 1 week Theodora Cuevas MD [Primary Care Provider] - 1 week Documented by User: Rene Alvarez MD 05/26/24 08:14 HPI HPI - General Adult General Chief complaint: Upper Respiratory Infection Stated complaint: throat pain Time Seen by Provider: 05/26/24 05:57 Related Data Home Medications ?Medication ?Instructions ?Recorded ?Confirmed insulin glargine 100 unit/mL (3 35 unit subcut BEDTIME 04/25/23 05/04/24 mL) subcutaneous pen (Lantus Solostar U-100 Insulin) metoprolol tartrate 100 mg tablet 150 mg PO BID 04/25/23 05/04/24 rivaroxaban 20 mg tablet (Xarelto) 20 mg PO QPM 04/25/23 05/04/24 insulin aspar prot-insulin aspart 35 unit subcut DAILY 07/08/23 05/04/24 100 unit/mL (70-30) subcutaneous pen (Novolog Mix 70-30FlexPen U-100) alprazolam 0.25 mg tablet 0.25 mg PO TID PRN anxiety 04/30/24 05/04/24 levothyroxine 125 mcg tablet 125 mcg PO .acb 04/30/24 05/04/24 oxycodone-acetaminophen 5 mg-325 1 tab PO BID PRN pain 04/30/24 05/04/24 mg tablet Previous Rx's ?Medication ?Instructions ?Recorded cefdinir 300 mg capsule 600 mg (2 x 300 mg) PO DAILY #14 05/06/24 caps Allergies Allergy/AdvReac Type Severity Reaction Status Date / Time Sulfa (Sulfonamide Allergy Rash Verified 05/26/24 06:01 Antibiotics) Opioid HPI Opioid Management Most Recent Opioid Data: Last Pain Scale 3 05/06/24 12:00 Last ORT Total Score 0 05/04/24 13:35 Last ORT Risk Category Low Risk 05/04/24 13:35 [facility] Medical History (Updated 05/26/24 @ 06:34 by Michela Medrano MD) Acute renal failure ?N17.9 - Acute kidney failure, unspecified (ICD-10) Hyperkalemia ?E87.5 - Hyperkalemia (ICD-10) Acute dehydration ?E86.0 - Dehydration (ICD-10) CKD stage 3a, GFR 45-59 ml/min ?N18.31 - Chronic kidney disease, stage 3a (ICD-10) Diabetes mellitus with hyperglycemia, with long-term current use of insulin ?E11.65 - Type 2 diabetes mellitus with hyperglycemia (ICD-10) ?Z79.4 - prison (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9 - Obesity, unspecified (ICD-10) Surgical History (Updated 03/26/24 @ 06:36 by Brooke Conrad) H/O bilateral mastectomy ?Z90.13 - Acquired absence of bilateral breasts and nipples (ICD-10) Family History (Updated 07/08/23 @ 04:02 by Mira Addison) Other Family history of CHF (congestive heart failure) Family history of cancer Family history of diabetes mellitus Family history of hypertension H/O mastectomy Social History (Updated 03/26/24 @ 06:38 by Brooke Conrad) Within the past year, how often did you have a drink containing alcohol: never Within the past year, how often did you have six or more drinks on one occasion: never Score interpretation: A score less than 3 is consistent with normal alcohol consumption. 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 Highest level of school completed/degree received: some college, no degree Do you want help with school or training: No Are you now , , , , never or living with a partner: In a typical week, how many times do you talk on the telephone with family, friends, or neighbors: 3 or more times per week How often do you get together with friends or relatives: 3 or more times per week How often do you attend baptist or gnosticism services: never Do you belong to any clubs or organizations such as baptist groups unions, [employer] or athletic groups, or school groups: no Total score: 2 Score interpretation: A score of greater than or equal to 2 indicates the lowest level of social isolation. Little interest or pleasure in doing things: not at all Feeling down, depressed, or hopeless: not at all Feel stressed/tense/nervous/anxious/difficulty sleeping: not at all Due to disability, difficulty making decisions: No Do you think of yourself as: straight/heterosexual Gender Identity: female Exam Constitutional Vital Signs, click to edit/add: Last Vital Signs Temp 98 F 05/26/24 05:58 Pulse 68 05/26/24 05:58 Resp 05/26/24 05:58 BP 154/68 H 05/26/24 05:58 Pulse Ox 94 L 05/26/24 05:58 O2 Del Method Room Air 05/26/24 05:58 Course Vital Signs Vital signs: Vital Signs Temperature 98 F 05/26/24 05:58 Pulse Rate 68 05/26/24 05:58 Respiratory Rate 14 05/26/24 05:58 Blood Pressure 154/68 H 05/26/24 05:58 Pulse Oximetry 94 L 05/26/24 05:58 Oxygen Delivery Method Room Air 05/26/24 05:58 Temperature 98 F 05/26/24 05:58 Pulse Rate 68 05/26/24 05:58 Respiratory Rate 05/26/24 05:58 Blood Pressure 154/68 H 05/26/24 05:58 Pulse Oximetry 94 L 05/26/24 05:58 Oxygen Delivery Method Room Air 05/26/24 05:58 Medical Decision Making MDM Narrative Medical decision making narrative: This 78-year-old female with a history of diabetes, chronic kidney disease, hypertension, breast cancer with left upper extremity lymphedema is brought to the emergency department by her for evaluation of 3 days of dysphagia. The patient states that it hurts her to swallow so she has only been eating applesauce and drinking water. She denies any chest pain or shortness of breath. She was recently seen by her family physician and referred to a specialist however neither the patient nor her can recall the name of the specialist nor what here she specializes in. The patient's vital signs were stable with a mildly low pulse ox of 94% on room air. Her HEENT exam is benign. Her neck is supple. Trachea is midline, there is no stridor or appreciable masses. Lungs are clear, abdomen is soft. There is some mild lower extremity edema which is likely chronic in nature as the patient has been on Lasix in the past. Her states she has not been using any lozenges because they make her sugar go high and she has not tried any sugar-free lozenges. She is not having any pooling of secretions, her voice is clear, HEENT exam was benign. I ordered a strep test, mono, CBC with differential, TSH comprehensive metabolic profile, BNP and troponin. A non contrast CT scan of the neck was also ordered to further evaluate her complaint of dysphagia. I ordered gentle hydration for her with NS at 100ml/hr as she was most recently admitted for dehydration. Signout note: Lab work reviewed and noted. Baseline for patient. No major abnormalities from her baseline. CT scan without acute findings to explain her symptoms. She does have an incidental herniated disc. She is given referral to ENT. She will follow-up with her primary care doctor for continued workup of this complaint. Return precautions were discussed. All questions were answered. The patient was discharged home. Rene Alvarez DO, FAAEM Lab Data Lab results reviewed: Yes I reviewed the patient's lab results Labs: Lab Results 05/26/24 05/26/24 Range/Units 06:22 06:32 WBC 7.3 (4.0-11.0) 10^3/uL RBC 3.95 L (4.20-5.40) 10^6/uL Hgb 12.0 (12.0-16.0) g/dL Hct 35.9 L (36.0-48.0) % MCV 90.9 (81.0-99.0) fL MCH 30.4 (26.7-34.0) pg MCHC 33.4 (29.9-35.2) g/dL RDW 14.0 (11.0-15.0) % Plt Count 215 (150-450) 10^3/uL MPV 10.6 (9.5-13.5) fL Neut % (Auto) 68.8 (43.0-75.0) % Lymph % (Auto) 18.4 L (20.5-60.0) % [place] % (Auto) 9.5 (1.7-12.0) % Eos % (Auto) 2.1 (0.9-7.0) % Baso % (Auto) 1.1 (0.2-2.0) % Neut # (Auto) 5.0 (1.4-6.5) 10^3/uL Lymph # (Auto) 1.3 (1.2-3.8) 10^3/uL [place] # (Auto) 0.7 (0.3-0.8) 10^3/uL Eos # (Auto) 0.2 (0.0-0.7) 10^3/uL Baso # (Auto) 0.1 (0.0-0.1) 10^3/uL Abs Immat Gran (auto) 0.01 (0.00-0.03) 10^3/uL Imm/Tot Granulo (auto) 0.1 (0.0-0.5) % Sodium 140 (136-145) mmol/L Potassium 4.0 (3.5-5.1) mmol/L Chloride 104 (98-107) mmol/L Carbon Dioxide 26.7 (21.0-32.0) mmol/L Anion Gap 13.3 BUN 33.0 H (7.0-18.0) mg/dL Creatinine 1.29 H (0.55-1.02) mg/dL Est GFR ( Amer) 49 L (>=60) Est GFR (Non-Af Amer) 40 L (>=60) BUN/Creatinine Ratio 25.6 Glucose 233 H (74-106) mg/dL Calcium 8.9 (8.5-10.1) mg/dL Total Bilirubin 0.5 (0.2-1.0) mg/dL AST 12 L (15-37) U/L ALT 20 (14-59) U/L Alkaline Phosphatase 88 (46-116) U/L Troponin I High Sens 14.9 (4.0-51.3) pg/mL NT-Pro-B Natriuret Pep 2687.0 H* (<=1800.0) pg/mL Total Protein 7.1 (6.4-8.2) g/dL Albumin 2.7 L (3.4-5.0) g/dL Globulin 4.4 g/dL Albumin/Globulin Ratio 0.6 Free T4 1.19 (0.76-1.46) ng/dL TSH & Free T4 Interp 4.487 H (0.358-3.740) uIU/mL Monoscreen Negative (NEGATIVE) SARS-CoV-2 RNA (FERN) Not detected (NOT DETECTE) Streptococcus Screen Negative Imaging Data CT soft tissue neck: Radiologist's impression: ITS Impressions Soft Tissue Neck CT 05/26/24 06:12 IMPRESSION: Limited noncontrast exam with no airway narrowing or definitive mass 4 mm C4-C5 disc herniation suspected Electronically authenticated by: NICOLAS BRISCOE Date: 05/26/2024 07:45 Discharge Plan Discharge Stand Alone Forms: Portal Instructions Chief Complaint: Upper Respiratory Infection Clinical Impression: Dysphagia Patient Disposition: Home, Self-Care Time of Disposition Decision: 08:11 Condition: Good Mode of Transportation: Private Vehicle Prescriptions / Home Meds: No Action insulin glargine [Lantus Solostar U-100 Insulin] 100 unit/mL (3 mL) insulin pen 35 unit SUBCUT BEDTIME metoprolol tartrate 100 mg tablet 150 mg PO BID Xarelto 20 mg tablet 20 mg PO QPM Rx Instructions: must administer with evening meal insulin asp prt-insulin aspart [Novolog Mix 70-30FlexPen U-100] 100 unit/mL (70-30) insulin pen 35 unit subcut DAILY Rx Instructions: USE DIRECTED PER SLIDING SCALE- MAX 35 UNITS DAILY levothyroxine 125 mcg tablet 125 mcg PO .acb alprazolam 0.25 mg tablet 0.25 mg PO TID PRN (Reason: anxiety) Patient Comments: 0.25mg PO TID PRN for anxiety oxycodone-acetaminophen 5-325 mg tablet 1 tab PO BID PRN (Reason: pain) cefdinir 300 mg capsule 600 mg PO DAILY Qty: 14 0RF Print Language: Citizen [place] Instructions: Dysphagia (ED) Additional Instructions: Call the office of your primary care doctor to arrange for follow-up within the above-stated timeframe. Your ED visit was focused on your acute issue and does not replace primary care. You should review your labs, imaging, and diagnoses from this ED visit with your primary care physician. There may be non-emergent/ incidental findings that need further evaluation. You should review your vital signs including blood pressure with your PCP. If you were prescribed medications you should discuss possible side-effects and drug interactions with your pharmacist. Call 911 or go to the nearest Emergency Department if you develop any new or worsening symptoms. Referrals: Ct Arnold MD [Physician] - 1 week Theodora Cuevas MD [Primary Care Provider] - 1 week
[2024-05-26] MEDS: 0.9 % SODIUM CHLORIDE 1,000 ML 100 ML IV (06:40)
[2024-05-26 06:41] LABS: Basophils Absolute Auto 0.1 10^3/uL (0.0-0.1); Basophils Percent Auto 1.1 % (0.2-2.0); Eosinophils Absolute Auto 0.2 10^3/uL (0.0-0.7); Eosinophils Percent Auto 2.1 % (0.9-7.0); Hematocrit 35.9 % (36.0-48.0); Immature Granulocytes Abs Auto 0.01 10^3/uL (0.00-0.03); Immature Granulocytes Pct Auto 0.1 % (0.0-0.5); Lymphocytes Absolute Auto 1.3 10^3/uL (1.2-3.8); Lymphocytes Percent Auto 18.4 % (20.5-60.0); Mean Corpuscular HGB Conc 33.4 g/dL (29.9-35.2); Mean Corpuscular Hemoglobin 30.4 pg (26.7-34.0); Mean Corpuscular Volume 90.9 fL (81.0-99.0); Mean Platelet Volume 10.6 fL (9.5-13.5); Monocytes Absolute Auto 0.7 10^3/uL (0.3-0.8); Monocytes Percent Auto 9.5 % (1.7-12.0); Neutrophils Percent Auto 68.8 % (43.0-75.0); Platelet Count 215 10^3/uL (150-450); Red Blood Count 3.95 10^6/uL (4.20-5.40); White Blood Count 7.3 10^3/uL (4.0-11.0)
[2024-05-26 06:53] LABS: Internal Control Within Normal Limits; SARS-CoV-2 NAA NOT DETECTED (NOT DETECTE); Strep A Antigen Screen Negative
[2024-05-26 07:15] LABS: Troponin I High Sensitivity 14.9 pg/mL (4.0-51.3)
[2024-05-26 07:17] LABS: Alanine Aminotransferase 20 U/L (14-59); Albumin Globulin Ratio 0.6; Albumin Level 2.7 g/dL (3.4-5.0); Alkaline Phosphatase 88 U/L (46-116); Anion Gap 13.3; Aspartate Amino Transferase 12 U/L (15-37); BUN Creatinine Ratio 25.6; Bilirubin Total 0.5 mg/dL (0.2-1.0); Calcium 8.9 mg/dL (8.5-10.1); Carbon Dioxide 26.7 mmol/L (21.0-32.0); Chloride 104 mmol/L (98-107); Estimated GFR (African America 49 (>=60); Estimated GFR (Non-African Ame 40 (>=60); Globulin 4.4 g/dL; Glucose 233 mg/dL (74-106); Sodium 140 mmol/L (136-145); TSH W/ REFLEX FT4 4.487 uIU/mL (0.358-3.740); Total Protein 7.1 g/dL (6.4-8.2)
[2024-05-26 07:24] LABS: Internal Control Within Normal Limits; Mono Screen NEGATIVE (NEGATIVE)
[2024-05-26 07:54] LABS: Free T4 1.19 ng/dL (0.76-1.46)
[2024-05-26 08:20] VITALS: BP 145/87; PULSE 65; O2SAT 99
== END 2024-05-26 08:20 | disposition home or self-care (01) ==
PROVIDERS: Emergency Medicine; Emergency Provider Student in an Organized Health Care Education/Training Program; PCP Family Medicine
DX: R13.10 Dysphagia, unspecified (principal); E11.9 Type 2 diabetes mellitus without complications; I25.10 Atherosclerotic heart disease of native coronary artery without angina pectoris; N28.9 Disorder of kidney and ureter, unspecified; Z79.4 Long term (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 insulin; E66.9 Obesity, unspecified; Z85.3 Personal history of malignant neoplasm of breast; Z20.822 Contact with and (suspected) exposure to COVID-19; Z68.41 Body mass index [BMI] 40.0-44.9, adult
CPT/HCPCS: 36415; 70490; 80053; 83880; 84439; 84443; 84484; 85025; 86308; 87070; 87635; 87880; 93005; 99285

== ENCOUNTER 2024-06-01 07:58 | Emergency (ER) | payer MEDICARE, SELFPAY ==
[2024-06-01] VITALS (13 sets, daily range): BP systolic 158; BP diastolic 90; PULSE 61–80; TEMP 36.6; O2SAT 94–98; BMI 34.5
--- OUTSIDE RECORDS SUMMARY | 2024-06-01 08:07 | XMS_ITS | CCD ---
Author Organization [facility] Care Team Providers Care Pulvi Mixer Operator Name Role Phone UNKNOWN, PROVIDER Unavailable Unavailable UNKNOWN, PROVIDER Unavailable Unavailable NIC BRYAN Unavailable Unavailable Akbar Cui II Unavailable SHANTEL STEVEN Primary Care Physician [phone] Shantel Steven Unavailable DR SHANTEL STEVEN Primary [...] SHANTEL Alvarado Primary Care Unavailable SAMANTHA, DR LAMINE Cramer Consulting Unavailabl e SAMANTHA, DR LAMINE Cramer Admitting Unavailabl e SAMANTHA, DR LAMINE Cramer Attending Unavailabl e ANALISA BRYANT Consulting Unavailable CESAR ., LD Admitting Unavailable CESAR .LD Attending Unavailable TENISHA, DR SHANTEL Alvarado Primary Care Unavailable LEATHA ALVAREZ Consulting Unavailable RENETTA MICHAELS Consulting Unavailable CESAR ., LD Consulting Unavailable YAMEL MCCRACKEN Admitting Unavailable YAMEL MCCRACKEN Attending Unavailable TENISHA, DR SHANTEL Alvarado Primary Care Unavailable TENISHA, DR SHANTEL Alvarado Primary Care Unavailable TENISHA, DR SHANTEL Alvarado Admitting Unavailable DR SHANTEL STEVEN Attending Unavailable DR SHANTEL STEVEN Consulting Unavailable Jaleesa Vanessa Unavailable ENZO BARNES Attending Unavailable RICA KAPLAN Attending Unavailable RICA KAPLAN Attending Unavailable ENZO BARNES Attending Unavailable MD Shantel Steven Primary Care Provider MD Shantel Steven Other Provider MD Eloina Hussein Attending Provider [phone] MD Eloina Hussein Referring Provider DO Jesus Barbour Emergency Provider JovitaEloina benito Admitting Unavailable Shantel Steven Consulting Unavailable Shantel Steven Primary Care Unavailable JovitaEloina benito Referring Unavailable Eloina Hussein F Attending Unavailable Jesus Barbour Attending Unavailable Jesus Barbour Admitting Unavailable Shantel Steven Primary Care Unavailable Allergies Allergy Classification Reported Allergen(s) Allergy Type Date of Onset Reaction(s) Facility (1 source) Iodine (And Iodine Containting Drugs) Drug allergy (disorder) 03-04-[address] [facility] Repository (20 sources) Shellfish; 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: [Shellfish] Food allergy (disorder) 03-04-20 12 rash, Eruption of skin (disorder) [facility] (10 sources) Sulfonamides (Antibiotic); 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: [SULFA (SULFONAMIDE ANTIBIOTICS)] Drug allergy (disorder) 03-04-[address] [facility] Repository (20 sources) Sulfacetamide Drug Allergy 02-15-20 24 diarrhea [facility] (13 sources) Contrast media; 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: [contrast media (iodine-based)] Drug allergy Unknown (qualifier value) [facility] [place] (2 sources) Sulfonamides (Antibiotic); 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: [sulfa drugs] Drug allergy Diarrhea (finding) [facility] (2 sources) Glucosamine Drug Allergy [facility] Repository (2 sources) Iodine (And Iodine Containting Drugs) Drug allergy (disorder) 08-09-20 17 [facility] Repository (11 sources) Contrast media Propensity to adverse reactions 11-18-[address] DYE [facility] Other (12 sources) Iodine; 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: [IODINE] Drug Allergy 10-30-[address] [facility] Repository (11 sources) Substance with sulfonamide structure and antibacterial mechanism of action (substance) Drug allergy Unknown [facility] [employer] Other (11 sources) Dyes Propensity to adverse reactions Comment:CT Dyes,Dyes,IVP Dyes [facility] [employer] Other (8 sources) Shellfish; 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: [SHELLFISH DERIVED] Allergy to substance 10-30-20 14 [facility] (8 sources) Iodinated Contrast Media; 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: [IODINATED CONTRAST MEDIA] Allergy to substance 02-15-20 24 [facility] (1 source) Chocolate; 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: [CHOCOLATE FLAVOR] Propensity to adverse reactions to drug (disorder) 01-17-20 [facility] Rep[facility] (1 source) Sulfacetamide Drug Allergy 05-22-20 24 [facility] Repository (1 source) Sulfonamides (Antibiotic) Drug allergy (disorder) 05-22-20 [facility] Repository Medications Current Medications Medication Drug Class(es) Dates Sig (Normalized) Sig (Original) 8 Hour Arthritis Pain Reliever (14 sources) acetaminophen 325 mg / oxyCODONE hydrochloride 5 mg oral tablet (20 sources) Opioid Agonist Start: 05-07-2024 take 1 tablet by mouth once daily Oxycodone-Acetami nophen Active 1 TAB PO Daily 30 May 07, 2024 Start: 01-04-2024 End: 05-07-2024 take 1 tablet by mouth twice daily Oxycodone-Acetaminophen Discontinued 1 T AB PO Twice daily January 04, 2024 March [...] 12, 2021 12:00am June 19, 2021 3:13am ascorbic acid 113 mg / coppe r [...] Status: Ordered cholecalciferol 0.125 mg oral capsule (12 sources) Vitamin D Start: 01-17-2024 take 125 [...] Daily, # 30 EA, Refills(s) 11, Pharmacy: [id number], 165.1, cm, 03/07/21 13:49:00 EDT, Height/Length [...] 2021 12:00am take 1 capsule by mo [facility] every twelve hours dilTIAZem HCl ER 120 [...] 1 capsule Orally Once a day Active Flash Glucose Sensor (Freestyle Familia 2 Sensor) kit (2 sources) Start: 05-07-2024 Flash Glucose Sensor (Freestyle Familia 2 Sensor) kit Active 0 .Route May 07, 2024 12:00am As directed 3 ml insulin isophane, human 100 unt/ml pen injector (6 sources) Start: 01-24-2024 inject 14 [IU] by [...] than or = 400 mg/dl 14 unit Lantus Solostar Pen (1 source) Start: 07-27-2022 inject 35 [IU] by subcutaneous injection once daily at bedtime Lantus Solostar Pen 35 unit(s), SubCutaneous, Once a day (at bedtime), Refill(s) 0 Start Date: 07/27/22 Status: Ordered levothyroxine sodium 0.125 mg oral tablet (20 sources) l-Thyrox ine Start: 04-03-2024 take 1 tablet by mouth once daily Levothyroxine Active 0 .ROUTE .COMPLEX April 03, 2024 3:16pm TAKE 1 TABLET BY MOUTH DAILY Start: 04-03-2024 End: 04-03-2024 take 125 ug by mouth once daily Levothyroxine Discontinued 125 MCG PO Daily April 03, 2024 12:00am April 03, 2024 3:16pm Start: 06-11-2021 End: 04-03-2024 take 112 ug by mouth once daily Levothyroxine Discontinued 112 MCG PO Daily June 11, 2021 12:00am April 03, 2024 12:05pm Start: 03-07-2021 take 112 ug by mouth once daily levothyroxine 112 mcg, Oral, Daily, Refills(s) 0 Start Date: 03/07/21 Status: Ordered Levothyroxine So dium 112 MCG TAKE 1 TABLET EVERY DAY for 90 Active Loperamide (14 sources) Opioid Agonist Metoprolol (20 sources) beta-Adrenergic Khadijah Start: 02-19-2024 Metopr olol Tartrate Active 0 .ROUTE .COMPLEX 270 February [...] oral tablet (20 sources) Nitroimidazole Antimicrobial Start: 04-10-2024 take 500 mg by mouth twice daily Metronidazole Active 500 MG PO Twice daily April 10, 2024 12:00am Start: 01-30-2024 End: 03-25-2024 take 1 tablet [...] tablet by joesph th every eight hours Nystatin (20 sources) Polyene Antifungal Start: 04-29-2024 take 1 mL by mouth three times daily Nystatin Active 1 ML PO Three times daily April 29, 2024 12:00am swish and swallow Start: 01-17-2024 Nystatin Activ e 1 APPLIC TOPICAL Twice daily January 17, 2024 1:00am Nystatin [id number] UNIT/GM 1 application Externally Twice a day for 10 days Active Nystatin [id number] UNIT/GM 1 application Externally Twice a day for 10 days Active 24 hr oxybutynin chloride 10 mg extended release oral tablet (6 sources) Cholinergic Muscarinic Antagonist Start: 02-15-2024 take [...] MCG (4 sources) take 1 tablet by joesph th once daily Selenium 200 MCG 1 tablet Orally Once a day Active True Metrix Blood Glucose [...] capsule Orally Once a day Active Vitamins A,C,P-Tfxv-Bbwico (Preservision Areds) 4,296 mcg-226 mg-90 mg capsule (6 sources) Start: 01-17-2024 take 1 capsule by mouth twice daily Vitamins A,C,M-Rdkn-Ahsnre (Preservision Areds) 4,296 mcg-226 mg-90 mg capsule Active 1 CAP PO Twice daily January 17, 2024 1:00am Completed/Discontinued Medications Medication Drug Class(es) Dates Sig (Normalized) Sig (Original) [id number] 200 actuat albuterol 0.09 mg/actuat metered dose inhaler (11 sources) beta2-Adrenergic Agonist Start: 01-17-2024 End: 04-03-2024 [...] bedtime Orally Once a day Not-Taking amylase 763218 unt / lipase 02716 unt / protease 57109 unt delayed release oral capsule (7 sources) Start: End: Qgocwm-Ucenoxta-Xau daisy (Creon) 24,000-76,000 -120,000 unit capsule,delayed release(DR/EC) Discontinued 1 - 2 CAP PO 1-2 TIMES DAILY June 11, 2021 12:00am June 19, 2021 3:12am Start: 05-10-2021 Creon 24,000 u nits oral delayed release capsule See Instructions, take 3 caps with each meal and 2 caps with each snack., # 390 caplet(s), Refills(s) 0, Pharmacy: [id number], 165.1, cm, 04/18/21 13:02:00 EDT, Height/Length Dosing, 116.4, kg, 04/18/21 13:02:00 EDT, Weight Dosing Start Date: 05/10/21 Status: Ordered biotin 5 mg oral capsule (10 sources) Start: 01-17-2024 End: 04-03-2024 take 5 mg by mouth once daily Biotin Discontinued 5 MG PO Daily January 17, 2024 1:00am April 03, 2024 11:46am take 1 capsule by [facility] every twenty-four hours Biotin 5 MG 1 capsule Orally Once a day Active carvedilol 6.25 mg oral tablet (6 sources) alpha-Adrenergic Khadijah, beta-Adrenergic Khadijah Start: 06-12-2021 End: 01-17-2024 take 6.25 mg by mouth twice daily at mealtime Carvedilol Discontinued 6.25 MG PO Twice daily with meals 60 June 12, 2021 12:00am January 17, 2024 5:18pm cefdinir 300 mg oral capsule (6 sources) Cephalosporin Antibacterial Start: 06-12-2021 End: 01-17-2024 take 300 mg by mouth twice daily Cefdinir Discontinued 300 MG PO Twice daily 10 June 12, 2021 12:00am January 17, 2024 5:18pm dapagliflozin 10 mg oral tablet (20 sources) Sodium-Glucose Cotransporter 2 Inhibitor Start: 01-22-2024 End: 04-03-2024 take 1 tablet by mouth once daily Dapagliflozin Propanediol (Farxiga) 10 mg tablet Discontinued 10 MG PO Daily January 29, 2024 12:00am April 03, 2024 11:42am FARXIGA Active Dapagliflozin Pr opanediol 10 MG 1 tablet once a day Active fluconazole 100 mg oral tablet (6 sources) Azole Antifungal Start: 06-12-2021 End: 01-17-2024 take 100 mg by mouth once daily Fluconazole Discontinued 100 MG PO Daily 05 18June 12, 2021 12:00am January 17, 2024 5:18pm furosemide 40 mg oral tablet (20 sources) Loop Diuretic Start: 01-17-2024 End: 05-07-2024 take 1 tablet by mouth once daily Furosemide (Lasix) 40 mg tablet Discontinued 40 MG PO Daily January 17, 2024 1:00am May 07, 2024 12:01pm Start: 07-27-2022 take 1 tablet by joesph [...] Insulin) 100 unit/mL (3 mL) Insulin Pen (6 sources) Start: 06-12-2021 End: 01-15-2024 inject 14 [...] Insulin) 100 unit/mL (3 mL) insulin pen (12 sources) Start: 01-16-2024 End: 01-24-2024 inject 14 [...] 100 UNIT/ML as directed Subcutaneous 25units Active ketoconazole 20 mg/ml topical cream (6 sources) Azole Antifungal Start: 02-15-2024 End: 04-29-2024 Ketoconazole Discontinued 1 APPLIC TOPICAL Daily February 15, 2024 12:00am April 29, 2024 1:36pm ketorolac tromethamine 5 mg/ml ophthalmic solution (6 sources) Nonsteroidal Anti-inflammatory Drug, Cyclooxygenase Inhibitor Start: 06-11-2021 End: 06-12-2021 Ketorolac Discontinued DROPS SOLUTION/ DROPS June 11, 2021 12:00am June 12, 2021 3:16am lisinopril 20 mg oral tablet (20 sources) Angiotensin Converting Enzyme Inhibitor Start: 03-07-2021 End: 05-07-2024 take 20 mg by mouth once daily Lisinopril Discontinued 20 MG PO Daily June 11, 2021 12:00am May 07, 2024 12:01pm meloxicam 15 mg oral tablet (12 sources) Nonsteroidal Anti-inflammatory Drug Start: 08-25-2021 take 1 tablet by mouth every twenty-four hours Mobic 15 MG 1 tablet Orally Once a day for 30 day(s) Aug, Not-Taking [place] 3-Tzg-Mhw-Fish Oil (Fish Oil) 1,000 mg (120 mg-180 mg) capsule (6 sources) Start: 01-17-2024 End: 04-03-2024 take 1 capsule by mouth once daily [place] 0-Yww-Xcq-Fish Oil (Fish Oil) 1,000 mg (120 mg-180 mg) capsule Discontinued 1 CAP PO Daily January 17, 2024 1:00am April 03, 2024 11:49am Start: 01-17-2024 take 1 capsule by mo [facility] once daily [place] 6-Szj-Gym-Fish Oil (Fish Oil) 1,000 mg (120 mg-180 mg) capsule Active 1 CAP PO Daily January 17, 2024 1:00am selenomethionine 0.2 mg oral tablet (6 sources) Start: 01-17-2024 End: 04-03-2024 take 200 ug by mouth once daily Selenomethionine Discontinued 200 MCG PO Daily January 17, 2024 1:00am April 03, 2024 11:51am spironolactone 25 mg oral tablet (20 sources) Aldosterone Antagonist Start: 01-17-2024 End: 05-07-2024 take 25 mg by mouth once daily Spironolactone Discontinued 25 MG PO Daily January 17, 2024 1:00am May 07, 2024 12:01pm take 1 tablet by joesph every twenty-four hours Spironolactone 25 MG 1 tablet Orally Onc e a day Active sucralfate 1000 mg oral tablet (17 sources) Aluminum Complex Start: 01-17-2024 End: 04-03-2024 [...] venlafaxine 37.5 mg extended release oral capsule (6 sources) Serotonin and Norepinephrine Reuptake Inhibitor Start: 06-11-2021 End: 01-17-2024 take 37.5 mg by mouth once daily Venlafaxine Discontinued 37.5 MG PO Daily June 11, 2021 12:00am January 17, 2024 5:18pm Problems Active Problems Problem Classification Problem Date Documented Date Episodic/Chronic Acute and unspecified renal failure (1 source) Acute kidney failure, unspecified Episodic Anxiety disorders (6 sources) Anxiety; 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: [Anxiety disorder, unspecified] 01-30-2024 Chronic Cancer of breast (2 sources) History of malignant neoplasm of breast; 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: [Personal history of malignant neoplasm of breast] Onset: 3 07-27-2022 Episodic Cardiac dysrhythmias (20 sources) Atrial fibrillation; 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: [Paroxysmal atrial fibrillation] Onset: 3 07-27-2022 Chronic Chronic kidney disease (20 sources) Chronic kidney disease stage 3; 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: [...] Coronary arteriosclerosis; 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: [Atherosclerotic heart disease of [place] coronary artery without angina pectoris] Onset: 3 01-17-2024 Chronic Coronary atherosclerosis and other heart disease (1 source) Coronary angioplasty status; 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: [CORONARY ANGIOPLASTY STATUS] Onset: 3 Episodic Diabetes mellitus with complications (20 sources) Disorder of kidney due to diabetes mellitus; 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: [Type 2 diabetes mellitus with diabetic chronic kidney disease] Onset: 3 07-27-2022 Chronic Diabetes mellitus without complication (10 sources) Diabetes mellitus; 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: [Type 2 diabetes mellitus without complications] Onset: 2 07-27-2022 Chronic Diabetes mellitus without complication (6 sources) Hyperglycemia; 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: [Hyperglycemia, unspecified] 06-12-2021 Episodic Disorders of lipid metabolism (3 sources) Hypercholesterolemia; 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: [Hyperlipidemia] Onset: 3 07-27-2022 Chronic Diverticulosis and diverticulitis (20 sources) Diverticulitis; 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: [Diverticulitis of intestine, part unspecified, without perforation or abscess without bleeding] Chronic Esophageal disorders (20 sources) Gastroesophageal reflux disease; 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: [Gastroesophageal reflux disease without esophagitis] Onset: 3 07-27-2022 Chronic Essential hypertension (20 sources) Hypertensive disorder; 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: [Essential (primary) hypertension] Onset: 2 07-27-2022 Chronic Fluid and electrolyte disorders (4 sources) Dehydration; 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: [Hypokalemia] Onset: 3 Episodic Genitourinary symptoms and ill-defined conditions (20 sources) Genuine stress incontinence; 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: [Stress incontinence (female) (male)] Chronic Hypertension with complications and secondary hypertension (20 sources) Chronic kidney disease due to hypertension; 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: [Hypertensive chronic kidney disease with stage 1 through stage 4 chronic kidney disease, or unspecified chronic kidney disease] Onset: 3 Chronic Immunizations and screening for infectious disease (9 sources) Immunization due; 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: [Encounter for immunization] 01-18-2024 Episodic Inflammation; infection of eye (except that caused by tuberculosis or sexually transmitteddisease) (6 sources) External hordeolum; 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: [Hordeolum externum unspecified eye, unspecified eyelid] 01-18-2024 Episodic Intestinal infection (3 sources) Enterocolitis due to Clostridium difficile, not specified as recurrent Episodic Malaise and fatigue (1 source) Weakness Episodic Menopausal disorders (1 source) Hormone replacement therapy; 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: [HORMONE REPLACEMENT THERAPY] Onset: 3 Episodic Mood disorders (1 source) Depressive disorder 07-27-2022 Chronic Mycoses (14 sources) Candidiasis of skin and nail; 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: [...] sources) Long-term current use of insulin; 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: [residential (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 insulin] 01-17-2024 Episodic Other aftercare (1 source) Other halfway (current) drug therapy; 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: [OTH PERFORMANCE ENGINEER CURRENT DRUG THERAPY] Onset: 3 Episodic Other aftercare (1 source) 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; Translations: [PERFORMANCE ENGINEER CURRNT USE 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] Onset: 3 Episodic Other [...] Chronic Other diseases of kidney and ureters (4 sources) Secondary hyperparathyroidism of renal origin; Translations: [Secondary hyperparathyroidism (of renal origin)] 03-25-2024 Chronic Other diseases of veins and lymphatics (6 sources) Lymphedema; Translations: [Lymphedema, not elsewhere classified] 01-17-2024 Chronic Other eye disorders (6 sources) Chalazion; Translations: [Chalazion right eye, unspecified [...] Translations: [DIARRHEA UNSPECIFIED] Onset: 2 Episodic Other gastrointestinal disorders (2 sources) Swollen abdomen; Translations: [Generalized intra-abdominal and pelvic swelling, mass and lump] 05-07-2024 Episodic Other gastrointestinal disorders (2 sources) Generalized intra-abdominal and pelvic swelling, mass and lump; Translations: [Abdominal or pelvic swelling, mass, or lump, generalized] 05-07-2024 Episodic Other lower respiratory disease (3 sources) Shortness of breath; Translations: [SHORTNESS OF BREATH] Onset: 3 Episodic Other lower respiratory disease (6 sources) Dyspnea; Translations: [Dyspnea, unspecified] 06-12-2021 Episodic [...] Chronic Other nutritional; endocrine; and metabolic disorders (6 sources) Intolerance to lactose; Translations: [Lactose intolerance, [...] UTERUS] Onset: 3 Episodic Residual codes; unclassified (20 sources) Memory impairment; Translations: [Other amnesia] 01-17-2024 Episodic Residual codes; unclassified (1 source) Other amnesia Episodic Retinal detachments; defects; vascular occlusion; and retinopathy (7 sources) Unspecified macular degeneration; Translations: [Degenerative disorder [...] Spondylosis; intervertebral disc disorders; other back problems (9 sources) Chronic low back pain; Translations: [Post-surgery back pain] 07-27-2022 Episodic Syncope (6 sources) Near syncope; Translations: [Syncope and collapse] 06-19-2021 Episodic Thyroid disorders (11 sources) Hypothyroidism; Translations: [Hypothyroidism, unspecified] 07-27-2022 Chronic Unclassified (1 source) CONTACT W/AND (SUSP) EXPOS COVID-19; Translations: [CONTACT W/AND (SUSP) EXPOS COVID-19] Onset: 3 Unclassified (1 source) Low back pain, unspecified; Translations: [Low back pain, unspecified] Onset: 4 Urinary tract infections (4 sources) Urinary tract infectious disease; Translations: [Urinary tract infection, site not specified] 05-07-2024 Episodic Past or Other Problems Problem Classification Problem Date Documented Da te Episodic/Chronic Other aftercare (4 sources) residential (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 insulin; Translations: [PERFORMANCE ENGINEER CURRENT USE OF INSULIN] Onset: 3 Episodic [...] Test Name Value Interpretation Reference Range Facility ECG 12 lead ECGon 05-22-2024 ECG 12 lead ECG [facility] [place] [id number] Electrocardiograph Report Signed Patient: Joe Call MR#: [id number] 0 : 1945 Acct:[id number] Age/Sex: 78 / F ADM Date: 05/22/24 Loc: ER Room: Type: [facility] ER Attending Dr: Ordering Provider: Jesus Barbour DO Date of Service: 05/22/2410/05/913 ECG/ECG 12 lead ECG: Shortness of Breath/Dyspnea Copies to: Test Reason : Blood Pressure : 140/64 mmHG Vent. Rate : 55 BPM Atrial Rate : 55 BPM P-R Int : 164 ms QRS Dur : 94 ms QT Int : 434 ms P-R-T Axes : 75 55 50 degrees QTcB Int : 415 ms Sinus bradycardia Confirmed by Daniele Jane DO ([id number]) on 05/22/2024 4:08:55 PM Referred By: Electronically Signed By: Daniele Jane DO Transcribed By: MUS Signed By Daniele Jane DO [id number] Normal [facility] Estimated glomerular filtrat ion rate (GFR) non- Americanon 05-20-2024 GFR/1.73 sq M.predicted among non-blacks MDRD (S/P/Bld) [Vol rate/Area] 39 mL/min/{1.73_m2} Low >=60 [facility] Laboratory - Chemistry and C hemistry - challengeon 05-20-2024 Calcium [Mass/Vol] 8.8 mg/dL 8.5-10.1 [facility] Chloride [Moles/Vol] 103 mmol/L 98-107 [facility] CO2 [Moles/Vol] 24.3 mmol/L 21.0-32.0 [facility] Creatinine [Mass/Vol] 1.32 mg/dL High 0.55-1.02 [facility] GFR/1.73 sq M.predicted MDRD (S/P/Bld) [Vol rate/Area] 47 mL/min/{1.73_m2} Low >=60 [facility] Glucose [Mass/Vol] 243 mg/dL High 74-106 [facility] Potassium [Moles/Vol] 5.0 mmol/L 3.5-5.1 [facility] Sodium [Moles/Vol] 138 mmol/L 136-145 [facility] Urea nitrogen [Mass/Vol] 35.0 mg/dL High 7.0-18.0 [facility] Urea nitrogen/Creatinine [Mass ratio] 26.5 mg/mg [facility] Serum or plasma anion gap de terminationon 05-20-2024 Anion gap [Moles/Vol] 15.7 mmol/L [facility] Basophils Auto (Bld) [#/Vol] on 05-06-2024 Basophils (Bld) [#/Vol] 0.1 10 3/uL 0.0-0.1 [facility] Basophils/100 WBC Auto (Bld) on 05-06-2024 Basophils/100 WBC (Bld) 0.9 % 0.2-2.0 [facility] Eosinophils/100 WBC Auto (Bl d)on 05-06-2024 Eosinophils/100 WBC (Bld) 2.7 % 0.9-7.0 [facility] Erythrocyte distribution wid th Auto (RBC) [Ratio]on 05-06-2024 Erythrocyte distribution width (RBC) [Ratio] 13.5 % 11.0-15.0 [facility] Estimated glomerular filtrat ion rate (GFR) non- Americanon 05-06-2024 GFR/1.73 sq M.predicted among non-blacks MDRD (S/P/Bld) [Vol rate/Area] 32 mL/min/{1.73_m2} Low >=60 [facility] Globulin Calc (S) [Mass/Vol] on 05-06-2024 Globulin (S) [Mass/Vol] 4.3 g/dL [facility] Hematocrit Auto (Bld) [Volum e fraction]on 05-06-2024 Hematocrit (Bld) [Volume fraction] 34.6 % Low 36.0-48.0 [facility] Hemoglobin [Mass/volume] in Bloodon 05-06-2024 Hemoglobin (Bld) [Mass/Vol] 11.1 g/dL Low 12.0-16.0 [facility] - Chemistry and C hemistry - challengeon 05-06-2024 Albumin [Mass/Vol] 2.5 g/dL Low 3.4-5.0 [facility] ALP [Catalytic activity/Vol] 75 U/L 46-116 [facility] ALT [Catalytic activity/Vol] 16 U/L 14-59 [facility] AST [Catalytic activity/Vol] 11 U/L Low 15-37 [facility] Bilirubin [Mass/Vol] 0.4 mg/dL 0.2-1.0 [facility] Calcium [Mass/Vol] 8.4 mg/dL Low 8.5-10.1 [facility] Chloride [Moles/Vol] 107 mmol/L 98-107 [facility] CO2 [Moles/Vol] 25.7 mmol/L 21.0-32.0 [facility] Creatinine [Mass/Vol] 1.58 mg/dL High 0.55-1.02 [facility] GFR/1.73 sq M.predicted MDRD (S/P/Bld) [Vol rate/Area] 38 mL/min/{1.73_m2} Low >=60 [facility] Glucose [Mass/Vol] 146 mg/dL High 74-106 [facility] Magnesium [Mass/Vol] 1.6 mg/dL Low 1.8-2.4 [facility] Natriuretic peptide B (Bld) [Mass/Vol] 2762.0 pg/mL High <=1800.0 [facility] Comment on above: RESULTS CALLED TO CLARITZA SELLERS RN @BY Alla Venegas at 0557 Potassium [Moles/Vol] 4.1 mmol/L 3.5-5.1 [facility] Protein [Mass/Vol] 6.8 g/dL 6.4-8.2 [facility] Sodium [Moles/Vol] 141 mmol/L 136-145 [facility] Urea nitrogen [Mass/Vol] 49.0 mg/dL High 7.0-18.0 [facility] Urea nitrogen/Creatinine [Mass ratio] 31.0 mg/mg [facility] - Hematology and Cell countson 05-06-2024 Immature granulocytes/100 WBC (Bld) 0.1 % 0.0-0.5 [facility] Leukocytes [#/volume] correc gali for nucleated erythrocytes in Blood by Automated counon 05-06-2024 WBC corrected for nucl RBC Auto (Bld) [#/Vol] 6.7 10 3/uL 4.0-11.0 [facility] Lymphocytes Auto (Bld) [#/Vo l]on 05-06-2024 Lymphocytes (Bld) [#/Vol] 1.5 10 3/uL 1.2-3.8 [facility] Lymphocytes/100 WBC Auto (Bl d)on 05-06-2024 Lymphocytes/100 WBC (Bld) 21.8 % 20.5-60.0 [facility] MCH Auto (RBC) [Entitic mass ]on 05-06-2024 MCH (RBC) [Entitic mass] 29.0 pg 26.7-34.0 [facility] MCHC Auto (RBC) [Mass/Vol]on 05-06-2024 MCHC (RBC) [Mass/Vol] 32.1 g/dL 29.9-35.2 [facility] MCV Auto (RBC) [Entitic vol] on 05-06-2024 MCV (RBC) [Entitic vol] 90.3 fL 81.0-99.0 [facility] Monocytes Auto (Bld) [#/Vol] on 05-06-2024 Monocytes (Bld) [#/Vol] 0.7 10 3/uL 0.3-0.8 [facility] Monocytes/100 WBC Auto (Bld) on 05-06-2024 Monocytes/100 WBC (Bld) 10.6 % 1.7-12.0 [facility] Neutrophils Auto (Bld) [#/Vo l]on 05-06-2024 Neutrophils (Bld) [#/Vol] 4.3 10 3/uL 1.4-6.5 [facility] Neutrophils/100 WBC Auto (Bl d)on 05-06-2024 Neutrophils/100 WBC (Bld) 63.9 % 43.0-75.0 [facility] No Panel Informationon 05-06 Eosinophils # (Auto) 0.2 10 3/uL 0.0-0.7 [facility] Immature Granulocyte # (Auto) 0.01 10 3/uL 0.00-0.03 [facility] Troponin I High Sensitivity 13.2 pg/mL 4.0-51.3 [facility] Comment on above: CUT-OFF POINTS HAVE [...] mean volume Auto (B ld) [Entitic vol]on 05-06-2024 Platelet mean volume (Bld) [Entitic vol] 11.3 fL 9.5-13.5 [facility] Platelets Auto (Bld) [#/Vol] on 05-06-2024 Platelets (Bld) [#/Vol] 146 10 3/uL Low 150-450 [facility] RBC Auto (Bld) [#/Vol]on RBC (Bld) [#/Vol] 3.83 10 6/uL Low 4.20-5.40 [facility] Serum or plasma albumin/glob ulin mass ratioon 05-06-2024 Albumin/Globulin [Mass ratio] 0.6 {ratio} [facility] Serum or plasma anion gap de terminationon 05-06-2024 Anion gap [Moles/Vol] 12.4 mmol/L [facility] Basophils Auto (Bld) [#/Vol] on 05-05-2024 Basophils (Bld) [#/Vol] 0.1 10 3/uL 0.0-0.1 [facility] Basophils/100 WBC Auto (Bld) on 05-05-2024 Basophils/100 WBC (Bld) 0.9 % 0.2-2.0 [facility] Eosinophils/100 WBC Auto (Bl d)on 05-05-2024 Eosinophils/100 WBC (Bld) 1.9 % 0.9-7.0 [facility] Erythrocyte distribution wid th Auto (RBC) [Ratio]on 05-05-2024 Erythrocyte distribution width (RBC) [Ratio] 13.4 % 11.0-15.0 [facility] Estimated glomerular filtrat ion rate (GFR) non- Americanon 05-05-2024 GFR/1.73 sq M.predicted among non-blacks MDRD (S/P/Bld) [Vol rate/Area] 29 mL/min/{1.73_m2} Low >=60 [facility] Globulin Calc (S) [Mass/Vol] on 05-05-2024 Globulin (S) [Mass/Vol] 4.4 g/dL [facility] Hematocrit Auto (Bld) [Volum e fraction]on 05-05-2024 Hematocrit (Bld) [Volume fraction] 33.8 % Low 36.0-48.0 [facility] Hemoglobin [Mass/volume] in Bloodon 05-05-2024 Hemoglobin (Bld) [Mass/Vol] 11.1 g/dL Low 12.0-16.0 [facility] Laboratory - Chemistry and C hemistry - challengeon 05-05-2024 Albumin [Mass/Vol] 2.6 g/dL Low 3.4-5.0 [facility] ALP [Catalytic activity/Vol] 74 U/L 46-116 [facility] ALT [Catalytic activity/Vol] 17 U/L 14-59 [facility] AST [Catalytic activity/Vol] 12 U/L Low 15-37 [facility] Bilirubin [Mass/Vol] 0.4 mg/dL 0.2-1.0 [facility] Calcium [Mass/Vol] 6.1 mg/dL Low 8.5-10.1 [facility] Chloride [Moles/Vol] 105 mmol/L 98-107 [facility] CO2 [Moles/Vol] 24.1 mmol/L 21.0-32.0 [facility] Creatinine [Mass/Vol] 1.71 mg/dL High 0.55-1.02 [facility] GFR/1.73 sq M.predicted MDRD (S/P/Bld) [Vol rate/Area] 35 mL/min/{1.73_m2} Low >=60 [facility] Glucose [Mass/Vol] 202 mg/dL High 74-106 [facility] Magnesium [Mass/Vol] 1.5 mg/dL Low 1.8-2.4 [facility] Natriuretic peptide B (Bld) [Mass/Vol] 2725.0 pg/mL High <=1800.0 [facility] Comment on above: RESULTS CALLED TO Frances Bryant (Austyn)@BY Franchesca Huynh MLT at 0547 Potassium [Moles/Vol] 5.9 mmol/L High 3.5-5.1 [facility] Protein [Mass/Vol] 7.0 g/dL 6.4-8.2 [facility] Sodium [Moles/Vol] 139 mmol/L 136-145 [facility] Urea nitrogen [Mass/Vol] 69.0 mg/dL High 7.0-18.0 [facility] Urea nitrogen/Creatinine [Mass ratio] 40.4 mg/mg [facility] Laboratory - Hematology and Cell countson 05-05-2024 Immature granulocytes/100 WBC (Bld) 0.3 % 0.0-0.5 [facility] Leukocytes [#/volume] correc gali for nucleated erythrocytes in Blood by Automated counon 05-05-2024 WBC corrected for nucl RBC Auto (Bld) [#/Vol] 6.9 10 3/uL 4.0-11.0 [facility] Lymphocytes Auto (Bld) [#/Vo l]on 05-05-2024 Lymphocytes (Bld) [#/Vol] 1.2 10 3/uL 1.2-3.8 [facility] Lymphocytes/100 WBC Auto (Bl d)on 05-05-2024 Lymphocytes/100 WBC (Bld) 18.0 % Low 20.5-60.0 [facility] MCH Auto (RBC) [Entitic mass ]on 05-05-2024 MCH (RBC) [Entitic mass] 29.3 pg 26.7-34.0 [facility] MCHC Auto (RBC) [Mass/Vol]on 05-05-2024 MCHC (RBC) [Mass/Vol] 32.8 g/dL 29.9-35.2 [facility] MCV Auto (RBC) [Entitic vol] on 05-05-2024 MCV (RBC) [Entitic vol] 89.2 fL 81.0-99.0 [facility] Monocytes Auto (Bld) [#/Vol] on 05-05-2024 Monocytes (Bld) [#/Vol] 0.6 10 3/uL 0.3-0.8 [facility] Monocytes/100 WBC Auto (Bld) on 05-05-2024 Monocytes/100 WBC (Bld) 8.7 % 1.7-12.0 [facility] Neutrophils Auto (Bld) [#/Vo l]on 05-05-2024 Neutrophils (Bld) [#/Vol] 4.8 10 3/uL 1.4-6.5 [facility] Neutrophils/100 WBC Auto (Bl d)on 05-05-2024 Neutrophils/100 WBC (Bld) 70.2 % 43.0-75.0 [facility] No Panel Informationon 05-05 Eosinophils # (Auto) 0.1 10 3/uL 0.0-0.7 [facility] Immature Granulocyte # (Auto) 0.02 10 3/uL 0.00-0.03 [facility] Troponin I High Sensitivity 14.0 pg/mL 4.0-51.3 [facility] Comment on above: CUT-OFF POINTS HAVE [...] mean volume Auto (B ld) [Entitic vol]on 05-05-2024 Platelet mean volume (Bld) [Entitic vol] 11.8 fL 9.5-13.5 [facility] Platelets Auto (Bld) [#/Vol] on 05-05-2024 Platelets (Bld) [#/Vol] 173 10 3/uL 150-450 [facility] RBC Auto (Bld) [#/Vol]on RBC (Bld) [#/Vol] 3.79 10 6/uL Low 4.20-5.40 [facility] Serum or plasma albumin/glob ulin mass ratioon 05-05-2024 Albumin/Globulin [Mass ratio] 0.6 {ratio} [facility] Serum or plasma anion gap de terminationon 05-05-2024 Anion gap [Moles/Vol] 15.8 mmol/L [facility] Basophils Auto (Bld) [#/Vol] on 05-04-2024 Basophils (Bld) [#/Vol] 0.1 10 3/uL 0.0-0.1 [facility] Basophils/100 WBC Auto (Bld) on 05-04-2024 Basophils/100 WBC (Bld) 0.9 % 0.2-2.0 [facility] Eosinophils/100 WBC Auto (Bl d)on 05-04-2024 Eosinophils/100 WBC (Bld) 1.7 % 0.9-7.0 [facility] Erythrocyte distribution wid th Auto (RBC) [Ratio]on 05-04-2024 Erythrocyte distribution width (RBC) [Ratio] 13.6 % 11.0-15.0 [facility] Estimated glomerular filtrat ion rate (GFR) non- Americanon 05-04-2024 GFR/1.73 sq M.predicted among non-blacks MDRD (S/P/Bld) [Vol rate/Area] 21 mL/min/{1.73_m2} Low >=60 [facility] Globulin Calc (S) [Mass/Vol] on 05-04-2024 Globulin (S) [Mass/Vol] 4.9 g/dL [facility] Hematocrit Auto (Bld) [Volum e fraction]on 05-04-2024 Hematocrit (Bld) [Volume fraction] 37.6 % 36.0-48.0 [facility] Hemoglobin [Mass/volume] in Bloodon 05-04-2024 Hemoglobin (Bld) [Mass/Vol] 12.0 g/dL 12.0-16.0 [facility] Laboratory - Chemistry and C hemistry - challengeon 05-04-2024 Bilirubin Ql (U) Negative NEGATIVE [facility] Glucose (U) [Mass/Vol] 250 mg/dL Abnormal NEGATIVE [facility] Ketones Ql (U) Negative NEGATIVE [facility] pH (U) 6.0 [pH] 5.0-9.0 [facility] Specific gravity (U) [Rel density] 1.015 1.005-1.025 [facility] Urobilinogen Qn (U) 0.2 {Meka'U}/dL 0.2-1.0 [facility] Albumin [Mass/Vol] 2.8 g/dL Low 3.4-5.0 [facility] ALP [Catalytic activity/Vol] 86 U/L 46-116 [facility] ALT [Catalytic activity/Vol] 16 U/L 14-59 [facility] Ammonia (P) [Moles/Vol] 12 umol/L 11-32 [facility] AST [Catalytic activity/Vol] 8 U/L Low 15-37 [facility] Bilirubin [Mass/Vol] 0.4 mg/dL 0.2-1.0 [facility] Calcium [Mass/Vol] 8.8 mg/dL 8.5-10.1 [facility] Chloride [Moles/Vol] 101 mmol/L 98-107 [facility] CO2 [Moles/Vol] 22.4 mmol/L 21.0-32.0 [facility] Creatinine [Mass/Vol] 2.24 mg/dL High 0.55-1.02 [facility] GFR/1.73 sq M.predicted MDRD (S/P/Bld) [Vol rate/Area] 26 mL/min/{1.73_m2} Low >=60 [facility] Glucose [Mass/Vol] 369 mg/dL High 74-106 [facility] Lactate [Moles/Vol] 1.2 mmol/L 0.4-2.0 [facility] Magnesium [Mass/Vol] 1.7 mg/dL Low 1.8-2.4 [facility] Natriuretic peptide B (Bld) [Mass/Vol] 2342.0 pg/mL High <=1800.0 [facility] Comment on above: RESULTS CALLED TO ER Rebecca Renteria RN @BY Andrea Long MLTat 1126 Potassium [Moles/Vol] 5.6 mmol/L High 3.5-5.1 [facility] Protein [Mass/Vol] 7.7 g/dL 6.4-8.2 [facility] Sodium [Moles/Vol] 134 mmol/L Low 136-145 [facility] T4 [Mass/Vol] 11.80 ug/dL 4.80-13.90 [facility] TSH Qn 0.933 m[IU]/L 0.358-3.740 [facility] Urea nitrogen [Mass/Vol] 86.0 mg/dL High 7.0-18.0 [facility] Comment on above: RESULTS CALLED TO ER Rebecca Renteria RN @BY Andrea Long MLTat 1126 Urea nitrogen/Creatinine [Mass ratio] 38.4 mg/mg [facility] Laboratory - Hematology and Cell countson 05-04-2024 Immature granulocytes/100 WBC (Bld) 0.3 % 0.0-0.5 [facility] - Microbiology an d Antimicrobial susceptibilityOrdered By: Carl oMrales on 05-04-2024 Bacteria identified Cx Nom (U) [facility] - Specimen inform ationon 05-04-2024 Appearance (U) SLIGHTLY CLOUDY Abnormal CLEAR [facility] Color (U) YELLOW YELLOW [facility] - Urinalysison Hyaline casts LM Ql (Urine sed) RARE [facility] Leukocyte esterase Test strip Ql (U) Negative NEGATIVE [facility] Mucus Ql (Urine sed) NONE SEEN NONE SEEN [facility] Nitrite Ql (U) Negative NEGATIVE [facility] Protein Ql (U) 100 mg/dL Abnormal NEG/TRACE [facility] Leukocytes [#/volume] correc gali for nucleated erythrocytes in Blood by Automated counon 05-04-2024 WBC corrected for nucl RBC Auto (Bld) [#/Vol] 6.9 10 3/uL 4.0-11.0 [facility] Lymphocytes Auto (Bld) [#/Vo l]on 05-04-2024 Lymphocytes (Bld) [#/Vol] 1.2 10 3/uL 1.2-3.8 [facility] Lymphocytes/100 WBC Auto (Bl d)on 05-04-2024 Lymphocytes/100 WBC (Bld) 17.8 % Low 20.5-60.0 [facility] MCH Auto (RBC) [Entitic mass ]on 05-04-2024 MCH (RBC) [Entitic mass] 29.3 pg 26.7-34.0 [facility] MCHC Auto (RBC) [Mass/Vol]on 05-04-2024 MCHC (RBC) [Mass/Vol] 31.9 g/dL 29.9-35.2 [facility] MCV Auto (RBC) [Entitic vol] on 05-04-2024 MCV (RBC) [Entitic vol] 91.9 fL 81.0-99.0 [facility] Monocytes Auto (Bld) [#/Vol] on 05-04-2024 Monocytes (Bld) [#/Vol] 0.7 10 3/uL 0.3-0.8 [facility] Monocytes/100 WBC Auto (Bld) on 05-04-2024 Monocytes/100 WBC (Bld) 10.4 % 1.7-12.0 [facility] Neutrophils Auto (Bld) [#/Vo l]on 05-04-2024 Neutrophils (Bld) [#/Vol] 4.8 10 3/uL 1.4-6.5 [facility] Neutrophils/100 WBC Auto (Bl d)on 05-04-2024 Neutrophils/100 WBC (Bld) 68.9 % 43.0-75.0 [facility] No Panel Informationon 05-04 Acetone Level Negative NEGATIVE [facility] Urine Bacteria MODERATE #/HPF Abnormal NONE SEEN [facility] Urine Culture Reflexed ALREADY ORDERED [facility] Urine Microscopic Review YES [facility] Urine Occult Blood MODERATE Abnormal NEGATIVE [facility] Urine Other Casts SEEN #/LPF Abnormal NONE SEEN [facility] Urine Other Crystals None Seen #/HPF None Seen [facility] Urine RBC 2-5 #/HPF Abnormal 0-2 [facility] Urine Squamous Epithelial Cells FEW #/LPF Abnormal NONE/RARE [facility] Urine WBC 2-5 #/HPF Abnormal NONE SEEN [facility] Eosinophils # (Auto) 0.1 10 3/uL 0.0-0.7 [facility] Immature Granulocyte # (Auto) 0.02 10 3/uL 0.00-0.03 [facility] Troponin I High Sensitivity 10.5 pg/mL 4.0-51.3 [facility] Comment on above: CUT-OFF POINTS HAVE [...] IN CONJUNCTIONWITH OTHER DIAGNOSTIC AND CLINICAL INFORMATION. Venous Blood Partial Pressure CO2 38.5 mm[Hg] Low 40.0-52.0 [facility] Venous Blood pH 7.353 7.330-7.430 [facility] No Panel InformationOrdered By: LAMINE SINGH on 05-04-2024 Blood Culture 1 [facility] Platelet mean volume Auto (B ld) [Entitic vol]on 05-04-2024 Platelet mean volume (Bld) [Entitic vol] 11.4 fL 9.5-13.5 [facility] Platelets Auto (Bld) [#/Vol] on 05-04-2024 Platelets (Bld) [#/Vol] 160 10 3/uL 150-450 [facility] RBC Auto (Bld) [#/Vol]on RBC (Bld) [#/Vol] 4.09 10 6/uL Low 4.20-5.40 [facility] Serum or plasma albumin/glob ulin mass ratioon 05-04-2024 Albumin/Globulin [Mass ratio] 0.6 {ratio} [facility] Serum or plasma anion gap de terminationon 05-04-2024 Anion gap [Moles/Vol] 16.2 mmol/L [facility] Basophils Auto (Bld) [#/Vol] on 05-01-2024 Basophils (Bld) [#/Vol] 0.1 10 3/uL 0.0-0.1 [facility] Basophils/100 WBC Auto (Bld) on 05-01-2024 Basophils/100 WBC (Bld) 0.7 % 0.2-2.0 [facility] Eosinophils/100 WBC Auto (Bl d)on 05-01-2024 Eosinophils/100 WBC (Bld) 2.3 % 0.9-7.0 [facility] Erythrocyte distribution wid th Auto (RBC) [Ratio]on 05-01-2024 Erythrocyte distribution width (RBC) [Ratio] 13.6 % 11.0-15.0 [facility] Estimated glomerular filtrat ion rate (GFR) non- Americanon 05-01-2024 GFR/1.73 sq M.predicted among non-blacks MDRD (S/P/Bld) [Vol rate/Area] 22 mL/min/{1.73_m2} Low >=60 [facility] Globulin Calc (S) [Mass/Vol] on 05-01-2024 Globulin (S) [Mass/Vol] 4.4 g/dL [facility] Hematocrit Auto (Bld) [Volum e fraction]on 05-01-2024 Hematocrit (Bld) [Volume fraction] 37.5 % 36.0-48.0 [facility] Hemoglobin [Mass/volume] in Bloodon 05-01-2024 Hemoglobin (Bld) [Mass/Vol] 12.1 g/dL 12.0-16.0 [facility] Laboratory - Chemistry and C hemistry - challengeon 05-01-2024 Calcium [Mass/Vol] 9.2 mg/dL 8.5-10.1 [facility] Chloride [Moles/Vol] 104 mmol/L 98-107 [facility] CO2 [Moles/Vol] 23.2 mmol/L 21.0-32.0 [facility] Creatinine [Mass/Vol] 2.14 mg/dL High 0.55-1.02 [facility] GFR/1.73 sq M.predicted MDRD (S/P/Bld) [Vol rate/Area] 27 mL/min/{1.73_m2} Low >=60 [facility] Glucose [Mass/Vol] 220 mg/dL High 74-106 [facility] Potassium [Moles/Vol] 5.3 mmol/L High 3.5-5.1 [facility] Sodium [Moles/Vol] 134 mmol/L Low 136-145 [facility] Urea nitrogen [Mass/Vol] 87.0 mg/dL High 7.0-18.0 [facility] Comment on above: RESULTS CALLED TO Klaus Michaels RN @BY Sury French [id number] Urea nitrogen/Creatinine [Mass ratio] 40.7 mg/mg [facility] Albumin [Mass/Vol] 2.8 g/dL Low 3.4-5.0 [facility] ALP [Catalytic activity/Vol] 80 U/L 46-116 [facility] ALT [Catalytic activity/Vol] 16 U/L 14-59 [facility] AST [Catalytic activity/Vol] 11 U/L Low 15-37 [facility] Bilirubin [Mass/Vol] 0.4 mg/dL 0.2-1.0 [facility] Natriuretic peptide B (Bld) [Mass/Vol] 1624.0 pg/mL <=1800.0 [facility] Protein [Mass/Vol] 7.2 g/dL 6.4-8.2 [facility] Laboratory - Hematology and Cell countson 05-01-2024 Immature granulocytes/100 WBC (Bld) 0.1 % 0.0-0.5 [facility] Leukocytes [#/volume] correc gali for nucleated erythrocytes in Blood by Automated counon 05-01-2024 WBC corrected for nucl RBC Auto (Bld) [#/Vol] 7.4 10 3/uL 4.0-11.0 [facility] Lymphocytes Auto (Bld) [#/Vo l]on 05-01-2024 Lymphocytes (Bld) [#/Vol] 2.2 10 3/uL 1.2-3.8 [facility] Lymphocytes/100 WBC Auto (Bl d)on 05-01-2024 Lymphocytes/100 WBC (Bld) 29.4 % 20.5-60.0 [facility] MCH Auto (RBC) [Entitic mass ]on 05-01-2024 MCH (RBC) [Entitic mass] 29.2 pg 26.7-34.0 [facility] MCHC Auto (RBC) [Mass/Vol]on 05-01-2024 MCHC (RBC) [Mass/Vol] 32.3 g/dL 29.9-35.2 [facility] MCV Auto (RBC) [Entitic vol] on 05-01-2024 MCV (RBC) [Entitic vol] 90.4 fL 81.0-99.0 [facility] Monocytes Auto (Bld) [#/Vol] on 05-01-2024 Monocytes (Bld) [#/Vol] 0.9 10 3/uL High 0.3-0.8 [facility] Monocytes/100 WBC Auto (Bld) on 05-01-2024 Monocytes/100 WBC (Bld) 11.5 % 1.7-12.0 [facility] Neutrophils Auto (Bld) [#/Vo l]on 05-01-2024 Neutrophils (Bld) [#/Vol] 4.1 10 3/uL 1.4-6.5 [facility] Neutrophils/100 WBC Auto (Bl d)on 05-01-2024 Neutrophils/100 WBC (Bld) 56.0 % 43.0-75.0 [facility] No Panel Informationon 05-01 Eosinophils # (Auto) 0.2 10 3/uL 0.0-0.7 [facility] Immature Granulocyte # (Auto) 0.01 10 3/uL 0.00-0.03 [facility] Platelet mean volume Auto (B ld) [Entitic vol]on 05-01-2024 Platelet mean volume (Bld) [Entitic vol] 11.6 fL 9.5-13.5 [facility] Platelets Auto (Bld) [#/Vol] on 05-01-2024 Platelets (Bld) [#/Vol] 151 10 3/uL 150-450 [facility] RBC Auto (Bld) [#/Vol]on RBC (Bld) [#/Vol] 4.15 10 6/uL Low 4.20-5.40 [facility] Serum or plasma albumin/glob ulin mass ratioon 05-01-2024 Albumin/Globulin [Mass ratio] 0.6 {ratio} [facility] Serum or plasma anion gap de terminationon 05-01-2024 Anion gap [Moles/Vol] 12.1 mmol/L [facility] Basophils Auto (Bld) [#/Vol] on 04-30-2024 Basophils (Bld) [#/Vol] 0.1 10 3/uL 0.0-0.1 [facility] Basophils/100 WBC Auto (Bld) on 04-30-2024 Basophils/100 WBC (Bld) 0.9 % 0.2-2.0 [facility] Eosinophils/100 WBC Auto (Bl d)on 04-30-2024 Eosinophils/100 WBC (Bld) 2.4 % 0.9-7.0 [facility] Erythrocyte distribution wid th Auto (RBC) [Ratio]on 04-30-2024 Erythrocyte distribution width (RBC) [Ratio] 13.5 % 11.0-15.0 [facility] Estimated glomerular filtrat ion rate (GFR) non- Americanon 04-30-2024 GFR/1.73 sq M.predicted among non-blacks MDRD (S/P/Bld) [Vol rate/Area] 15 mL/min/{1.73_m2} Low >=60 [facility] Fibrin D-dimer [Presence] in Platelet poor plasma by Latex agglutinationon 04-30-2024 Fibrin D-dimer LA Ql (PPP) 0.24 mg/L FEU <=0.59 [facility] Comment on above: Increases in D-Dimer concentration observed withthromboembolic events can be variable due to localization,size, and age of the thrombus. Therefore, a thromboembolicevent cannot be diagnosed with certainty on the basis of thereference range. D-Dimers may also be elevated for a varietyof disorders including advanced age, , coronarydisease, cancer, liver disease, infection, inflammation,hematoma, DIC, trauma, post-surgery, diabetes, thrombolyticor anticoagulant therapy, stress, and generalizedhospitalization. Hematocrit Auto (Bld) [Volum e fraction]on 04-30-2024 Hematocrit (Bld) [Volume fraction] 38.6 % 36.0-48.0 [facility] Hemoglobin [Mass/volume] in Bloodon 04-30-2024 Hemoglobin (Bld) [Mass/Vol] 12.5 g/dL 12.0-16.0 [facility] Laboratory - Chemistry and C hemistry - challengeon 04-30-2024 Calcium [Mass/Vol] 9.0 mg/dL 8.5-10.1 [facility] Chloride [Moles/Vol] 100 mmol/L 98-107 [facility] CO2 [Moles/Vol] 24.4 mmol/L 21.0-32.0 [facility] Creatinine [Mass/Vol] 3.02 mg/dL High 0.55-1.02 [facility] GFR/1.73 sq M.predicted MDRD (S/P/Bld) [Vol rate/Area] 18 mL/min/{1.73_m2} Low >=60 [facility] Glucose [Mass/Vol] 271 mg/dL High 74-106 [facility] Magnesium [Mass/Vol] 1.8 mg/dL 1.8-2.4 [facility] Natriuretic peptide B (Bld) [Mass/Vol] 1485.0 pg/mL <=1800.0 [facility] Potassium [Moles/Vol] 5.3 mmol/L High 3.5-5.1 [facility] Sodium [Moles/Vol] 133 mmol/L Low 136-145 [facility] Urea nitrogen [Mass/Vol] 99.0 mg/dL High 7.0-18.0 [facility] Comment on above: RESULTS CALLED TO Yeol WADE)@BY Franchesca Huynh MLT at 0603 Urea nitrogen/Creatinine [Mass ratio] 32.8 mg/mg [facility] Laboratory - Hematology and Cell countson 04-30-2024 Immature granulocytes/100 WBC (Bld) 0.1 % 0.0-0.5 [facility] Leukocytes [#/volume] correc gali for nucleated erythrocytes in Blood by Automated counon 04-30-2024 WBC corrected for nucl RBC Auto (Bld) [#/Vol] 7.5 10 3/uL 4.0-11.0 [facility] Lymphocytes Auto (Bld) [#/Vo l]on 04-30-2024 Lymphocytes (Bld) [#/Vol] 2.1 10 3/uL 1.2-3.8 [facility] Lymphocytes/100 WBC Auto (Bl d)on 04-30-2024 Lymphocytes/100 WBC (Bld) 27.8 % 20.5-60.0 [facility] MCH Auto (RBC) [Entitic mass ]on 04-30-2024 MCH (RBC) [Entitic mass] 29.6 pg 26.7-34.0 [facility] MCHC Auto (RBC) [Mass/Vol]on 04-30-2024 MCHC (RBC) [Mass/Vol] 32.4 g/dL 29.9-35.2 [facility] MCV Auto (RBC) [Entitic vol] on 04-30-2024 MCV (RBC) [Entitic vol] 91.5 fL 81.0-99.0 [facility] Monocytes Auto (Bld) [#/Vol] on 04-30-2024 Monocytes (Bld) [#/Vol] 0.8 10 3/uL 0.3-0.8 [facility] Monocytes/100 WBC Auto (Bld) on 04-30-2024 Monocytes/100 WBC (Bld) 10.0 % 1.7-12.0 [facility] Neutrophils Auto (Bld) [#/Vo l]on 04-30-2024 Neutrophils (Bld) [#/Vol] 4.4 10 3/uL 1.4-6.5 [facility] Neutrophils/100 WBC Auto (Bl d)on 04-30-2024 Neutrophils/100 WBC (Bld) 58.8 % 43.0-75.0 [facility] No Panel Informationon 04-30 Troponin I High Sensitivity 12.6 pg/mL 4.0-51.3 [facility] Comment on above: CUT-OFF POINTS HAVE [...] IN CONJUNCTIONWITH OTHER DIAGNOSTIC AND CLINICAL INFORMATION. Eosinophils # (Auto) 0.2 10 3/uL 0.0-0.7 [facility] Immature Granulocyte # (Auto) 0.01 10 3/uL 0.00-0.03 [facility] Platelet mean volume Auto (B ld) [Entitic vol]on 04-30-2024 Platelet mean volume (Bld) [Entitic vol] 12.2 fL 9.5-13.5 [facility] Platelets Auto (Bld) [#/Vol] on 04-30-2024 Platelets (Bld) [#/Vol] 221 10 3/uL 150-450 [facility] RBC Auto (Bld) [#/Vol]on RBC (Bld) [#/Vol] 4.22 10 6/uL 4.20-5.40 [facility] Serum or plasma anion gap de terminationon 04-30-2024 Anion gap [Moles/Vol] 13.9 mmol/L Fi [facility] Basophils Auto (Bld) [#/Vol] on 03-28-2024 Basophils (Bld) [#/Vol] 0.1 10 3/uL 0.0-0.1 [facility] Basophils/100 WBC Auto (Bld) on 03-28-2024 Basophils/100 WBC (Bld) 0.9 % 0.2-2.0 [facility] Eosinophils/100 WBC Auto (Bl d)on 03-28-2024 Eosinophils/100 WBC (Bld) 1.7 % 0.9-7.0 [facility] Erythrocyte distribution wid th Auto (RBC) [Ratio]on 03-28-2024 Erythrocyte distribution width (RBC) [Ratio] 14.2 % 11.0-15.0 [facility] Estimated glomerular filtrat ion rate (GFR) non- Americanon 03-28-2024 GFR/1.73 sq M.predicted among non-blacks MDRD (S/P/Bld) [Vol rate/Area] 39 mL/min/{1.73_m2} Low >=60 [facility] Globulin Calc (S) [Mass/Vol] on 03-28-2024 Globulin (S) [Mass/Vol] 4.8 g/dL F [facility] Hematocrit Auto (Bld) [Volum e fraction]on 03-28-2024 Hematocrit (Bld) [Volume fraction] 40.0 % 36.0-48.0 [facility] Hemoglobin [Mass/volume] in Bloodon 03-28-2024 Hemoglobin (Bld) [Mass/Vol] 12.6 g/dL 12.0-16.0 [facility] Laboratory - Chemistry and C hemistry - challengeon 03-28-2024 Albumin [Mass/Vol] 2.5 g/dL Low 3.4-5.0 [facility] ALP [Catalytic activity/Vol] 93 U/L 46-116 [facility] ALT [Catalytic activity/Vol] 9 U/L Low 14-59 [facility] AST [Catalytic activity/Vol] 10 U/L Low 15-37 [facility] Bilirubin [Mass/Vol] 0.9 mg/dL 0.2-1.0 [facility] Calcium [Mass/Vol] 8.5 mg/dL 8.5-10.1 [facility] Chloride [Moles/Vol] 96 mmol/L Low 98-107 [facility] CO2 [Moles/Vol] 27.1 mmol/L 21.0-32.0 [facility] Creatinine [Mass/Vol] 1.33 mg/dL High 0.55-1.02 [facility] GFR/1.73 sq M.predicted MDRD (S/P/Bld) [Vol rate/Area] 47 mL/min/{1.73_m2} Low >=60 [facility] Glucose [Mass/Vol] 261 mg/dL High 74-106 [facility] Magnesium [Mass/Vol] 1.8 mg/dL 1.8-2.4 [facility] Natriuretic peptide B (Bld) [Mass/Vol] 3338.0 pg/mL High <=1800.0 [facility] Comment on above: RESULTS CALLED TO Claritza ButtsRN)@BY Franchesca Huynh MLT at 0554 Potassium [Moles/Vol] 3.8 mmol/L 3.5-5.1 [facility] Protein [Mass/Vol] 7.3 g/dL 6.4-8.2 [facility] Sodium [Moles/Vol] 133 mmol/L Low 136-145 [facility] Urea nitrogen [Mass/Vol] 36.0 mg/dL High 7.0-18.0 [facility] Urea nitrogen/Creatinine [Mass ratio] 27.1 mg/mg [facility] Laboratory - Hematology and Cell countson 03-28-2024 Immature granulocytes/100 WBC (Bld) 0.4 % 0.0-0.5 [facility] Leukocytes [#/volume] correc gali for nucleated erythrocytes in Blood by Automated counon 03-28-2024 WBC corrected for nucl RBC Auto (Bld) [#/Vol] 8.4 10 3/uL 4.0-11.0 [facility] Lymphocytes Auto (Bld) [#/Vo l]on 03-28-2024 Lymphocytes (Bld) [#/Vol] 1.8 10 3/uL 1.2-3.8 [facility] Lymphocytes/100 WBC Auto (Bl d)on 03-28-2024 Lymphocytes/100 WBC (Bld) 21.4 % 20.5-60.0 [facility] MCH Auto (RBC) [Entitic mass ]on 03-28-2024 MCH (RBC) [Entitic mass] 29.0 pg 26.7-34.0 [facility] MCHC Auto (RBC) [Mass/Vol]on 03-28-2024 MCHC (RBC) [Mass/Vol] 31.5 g/dL 29.9-35.2 [facility] MCV Auto (RBC) [Entitic vol] on 03-28-2024 MCV (RBC) [Entitic vol] 92.0 fL 81.0-99.0 [facility] Monocytes Auto (Bld) [#/Vol] on 03-28-2024 Monocytes (Bld) [#/Vol] 0.8 10 3/uL 0.3-0.8 [facility] Monocytes/100 WBC Auto (Bld) on 03-28-2024 Monocytes/100 WBC (Bld) 9.7 % 1.7-12.0 [facility] Neutrophils Auto (Bld) [#/Vo l]on 03-28-2024 Neutrophils (Bld) [#/Vol] 5.6 10 3/uL 1.4-6.5 [facility] Neutrophils/100 WBC Auto (Bl d)on 03-28-2024 Neutrophils/100 WBC (Bld) 65.9 % 43.0-75.0 [facility] No Panel Informationon 03-28 Eosinophils # (Auto) 0.1 10 3/uL 0.0-0.7 [facility] Immature Granulocyte # (Auto) 0.03 10 3/uL 0.00-0.03 [facility] Platelet mean volume Auto (B ld) [Entitic vol]on 03-28-2024 Platelet mean volume (Bld) [Entitic vol] 10.5 fL 9.5-13.5 [facility] Platelets Auto (Bld) [#/Vol] on 03-28-2024 Platelets (Bld) [#/Vol] 197 10 3/uL 150-450 [facility] RBC Auto (Bld) [#/Vol]on RBC (Bld) [#/Vol] 4.35 10 6/uL 4.20-5.40 [facility] Serum or plasma albumin/glob ulin mass ratioon 03-28-2024 Albumin/Globulin [Mass ratio] 0.5 {ratio} [facility] Serum or plasma anion gap de terminationon 03-28-2024 Anion gap [Moles/Vol] 13.7 mmol/L [facility] Basophils Auto (Bld) [#/Vol] on 03-27-2024 Basophils (Bld) [#/Vol] 0.1 10 3/uL 0.0-0.1 [facility] Basophils/100 WBC Auto (Bld) on 03-27-2024 Basophils/100 WBC (Bld) 0.8 % 0.2-2.0 [facility] Eosinophils/100 WBC Auto (Bl d)on 03-27-2024 Eosinophils/100 WBC (Bld) 1.1 % 0.9-7.0 [facility] Erythrocyte distribution wid th Auto (RBC) [Ratio]on 03-27-2024 Erythrocyte distribution width (RBC) [Ratio] 14.2 % 11.0-15.0 [facility] Estimated glomerular filtrat ion rate (GFR) non- Americanon 03-27-2024 GFR/1.73 sq M.predicted among non-blacks MDRD (S/P/Bld) [Vol rate/Area] 44 mL/min/{1.73_m2} Low >=60 [facility] Globulin Calc (S) [Mass/Vol] on 03-27-2024 Globulin (S) [Mass/Vol] 4.6 g/dL [facility] Glucose mean value [Mass/vol ume] in Blood Estimated from glycated hemoglobinon 03-27-2024 Average glucose Estimated from glycated hemoglobin (Bld) [Mass/Vol] 275 mg/dL [facility] Hematocrit Auto (Bld) [Volum e fraction]on 03-27-2024 Hematocrit (Bld) [Volume fraction] 37.4 % 36.0-48.0 [facility] Hemoglobin [Mass/volume] in Bloodon 03-27-2024 Hemoglobin (Bld) [Mass/Vol] 12.1 g/dL 12.0-16.0 [facility] Laboratory - Chemistry and C hemistry - challengeon 03-27-2024 Albumin [Mass/Vol] 2.6 g/dL Low 3.4-5.0 [facility] ALP [Catalytic activity/Vol] 89 U/L 46-116 [facility] ALT [Catalytic activity/Vol] 12 U/L Low 14-59 [facility] AST [Catalytic activity/Vol] 9 U/L Low 15-37 [facility] Bilirubin [Mass/Vol] 0.9 mg/dL 0.2-1.0 [facility] Calcium [Mass/Vol] 9.1 mg/dL 8.5-10.1 [facility] Chloride [Moles/Vol] 99 mmol/L 98-107 [facility] CO2 [Moles/Vol] 28.8 mmol/L 21.0-32.0 [facility] Creatinine [Mass/Vol] 1.19 mg/dL High 0.55-1.02 [facility] GFR/1.73 sq M.predicted MDRD (S/P/Bld) [Vol rate/Area] 53 mL/min/{1.73_m2} Low >=60 [facility] Glucose [Mass/Vol] 273 mg/dL High 74-106 [facility] Magnesium [Mass/Vol] 1.7 mg/dL Low 1.8-2.4 [facility] Natriuretic peptide B (Bld) [Mass/Vol] 4572.0 pg/mL High <=1800.0 [facility] Comment on above: RESULTS CALLED TO SA RA MIGUEL RN @BY Alla Kevin [phone] Potassium [Moles/Vol] 3.6 mmol/L 3.5-5.1 [facility] Protein [Mass/Vol] 7.2 g/dL 6.4-8.2 [facility] Sodium [Moles/Vol] 135 mmol/L Low 136-145 [facility] Urea nitrogen [Mass/Vol] 34.0 mg/dL High 7.0-18.0 [facility] Urea nitrogen/Creatinine [Mass ratio] 28.6 mg/mg [facility] Laboratory - Hematology and Cell countson 03-27-2024 HbA1c (Bld) [Mass fraction] 11.2 % High 4.5-6.2 [facility] Comment on above: ADA RECOMMENDED LIMI T 4.0 - 6.0ADA THERAPEUTIC TARGET < 7.0ACTION SUGGESTED> 7.0 Immature granulocytes/100 WBC (Bld) 0.3 % 0.0-0.5 [facility] Leukocytes [#/volume] correc gali for nucleated erythrocytes in Blood by Automated counon 03-27-2024 WBC corrected for nucl RBC Auto (Bld) [#/Vol] 9.7 10 3/uL 4.0-11.0 [facility] Lymphocytes Auto (Bld) [#/Vo l]on 03-27-2024 Lymphocytes (Bld) [#/Vol] 1.3 10 3/uL 1.2-3.8 [facility] Lymphocytes/100 WBC Auto (Bl d)on 03-27-2024 Lymphocytes/100 WBC (Bld) 13.3 % Low 20.5-60.0 [facility] MCH Auto (RBC) [Entitic mass ]on 03-27-2024 MCH (RBC) [Entitic mass] 29.2 pg 26.7-34.0 [facility] MCHC Auto (RBC) [Mass/Vol]on 03-27-2024 MCHC (RBC) [Mass/Vol] 32.4 g/dL 29.9-35.2 [facility] MCV Auto (RBC) [Entitic vol] on 03-27-2024 MCV (RBC) [Entitic vol] 90.3 fL 81.0-99.0 [facility] Monocytes Auto (Bld) [#/Vol] on 03-27-2024 Monocytes (Bld) [#/Vol] 0.8 10 3/uL 0.3-0.8 [facility] Monocytes/100 WBC Auto (Bld) on 03-27-2024 Monocytes/100 WBC (Bld) 8.4 % 1.7-12.0 [facility] Neutrophils Auto (Bld) [#/Vo l]on 03-27-2024 Neutrophils (Bld) [#/Vol] 7.4 10 3/uL High 1.4-6.5 [facility] Neutrophils/100 WBC Auto (Bl d)on 03-27-2024 Neutrophils/100 WBC (Bld) 76.1 % High 43.0-75.0 [facility] No Panel Informationon 03-27 Eosinophils # (Auto) 0.1 10 3/uL 0.0-0.7 [facility] Immature Granulocyte # (Auto) 0.03 10 3/uL 0.00-0.03 [facility] Platelet mean volume Auto (B ld) [Entitic vol]on 03-27-2024 Platelet mean volume (Bld) [Entitic vol] 10.6 fL 9.5-13.5 [facility] Platelets Auto (Bld) [#/Vol] on 03-27-2024 Platelets (Bld) [#/Vol] 204 10 3/uL 150-450 [facility] RBC Auto (Bld) [#/Vol]on RBC (Bld) [#/Vol] 4.14 10 6/uL Low 4.20-5.40 [facility] Serum or plasma albumin/glob ulin mass ratioon 03-27-2024 Albumin/Globulin [Mass ratio] 0.6 {ratio} [facility] Serum or plasma anion gap de terminationon 03-27-2024 Anion gap [Moles/Vol] 10.8 mmol/L [facility] Basophils Auto (Bld) [#/Vol] on 03-26-2024 Basophils (Bld) [#/Vol] 0.1 10 3/uL 0.0-0.1 [facility] Basophils/100 WBC Auto (Bld) on 03-26-2024 Basophils/100 WBC (Bld) 0.8 % 0.2-2.0 [facility] Eosinophils/100 WBC Auto (Bl d)on 03-26-2024 Eosinophils/100 WBC (Bld) 1.2 % 0.9-7.0 [facility] Erythrocyte distribution wid th Auto (RBC) [Ratio]on 03-26-2024 Erythrocyte distribution width (RBC) [Ratio] 14.5 % 11.0-15.0 [facility] Estimated glomerular filtrat ion rate (GFR) non- Americanon 03-26-2024 GFR/1.73 sq M.predicted among non-blacks MDRD (S/P/Bld) [Vol rate/Area] 46 mL/min/{1.73_m2} Low >=60 [facility] Glucose mean value [Mass/vol ume] in Blood Estimated from glycated hemoglobinon 03-26-2024 Average glucose Estimated from glycated hemoglobin (Bld) [Mass/Vol] 275 mg/dL [facility] Hematocrit Auto (Bld) [Volum e fraction]on 03-26-2024 Hematocrit (Bld) [Volume fraction] 40.1 % 36.0-48.0 [facility] Hemoglobin [Mass/volume] in Bloodon 03-26-2024 Hemoglobin (Bld) [Mass/Vol] 12.7 g/dL 12.0-16.0 [facility] Laboratory - Chemistry and C hemistry - challengeon 03-26-2024 Calcium [Mass/Vol] 9.1 mg/dL 8.5-10.1 [facility] Chloride [Moles/Vol] 102 mmol/L 98-107 [facility] CO2 [Moles/Vol] 28.5 mmol/L 21.0-32.0 [facility] Creatinine [Mass/Vol] 1.14 mg/dL High 0.55-1.02 [facility] Free T4 [Mass/Vol] 1.29 ng/dL 0.76-1.46 [facility] GFR/1.73 sq M.predicted MDRD (S/P/Bld) [Vol rate/Area] 56 mL/min/{1.73_m2} Low >=60 [facility] Glucose [Mass/Vol] 246 mg/dL High 74-106 [facility] Natriuretic peptide B (Bld) [Mass/Vol] 2890.0 pg/mL High <=1800.0 [facility] Comment on above: RESULTS CALLED TO YOEL TAI RN @BY Alla Kunz 0556 Potassium [Moles/Vol] 4.3 mmol/L 3.5-5.1 [facility] Sodium [Moles/Vol] 136 mmol/L 136-145 [facility] TSH Qn 6.001 m[IU]/L High 0.358-3.740 [facility] Urea nitrogen [Mass/Vol] 35.0 mg/dL High 7.0-18.0 [facility] Urea nitrogen/Creatinine [Mass ratio] 30.7 mg/mg [facility] Laboratory - Hematology and Cell countson 03-26-2024 HbA1c (Bld) [Mass fraction] 11.2 % High 4.5-6.2 [facility] Comment on above: ADA RECOMMENDED LIMI T 4.0 - 6.0ADA THERAPEUTIC TARGET < 7.0ACTION SUGGESTED> 7.0 Immature granulocytes/100 WBC (Bld) 0.2 % 0.0-0.5 [facility] Leukocytes [#/volume] correc gali for nucleated erythrocytes in Blood by Automated counon 03-26-2024 WBC corrected for nucl RBC Auto (Bld) [#/Vol] 8.3 10 3/uL 4.0-11.0 [facility] Lymphocytes Auto (Bld) [#/Vo l]on 03-26-2024 Lymphocytes (Bld) [#/Vol] 1.4 10 3/uL 1.2-3.8 [facility] Lymphocytes/100 WBC Auto (Bl d)on 03-26-2024 Lymphocytes/100 WBC (Bld) 16.5 % Low 20.5-60.0 [facility] MCH Auto (RBC) [Entitic mass ]on 03-26-2024 MCH (RBC) [Entitic mass] 29.1 pg 26.7-34.0 [facility] MCHC Auto (RBC) [Mass/Vol]on 03-26-2024 MCHC (RBC) [Mass/Vol] 31.7 g/dL 29.9-35.2 [facility] MCV Auto (RBC) [Entitic vol] on 03-26-2024 MCV (RBC) [Entitic vol] 92.0 fL 81.0-99.0 [facility] Monocytes Auto (Bld) [#/Vol] on 03-26-2024 Monocytes (Bld) [#/Vol] 0.7 10 3/uL 0.3-0.8 [facility] Monocytes/100 WBC Auto (Bld) on 03-26-2024 Monocytes/100 WBC (Bld) 7.9 % 1.7-12.0 [facility] Neutrophils Auto (Bld) [#/Vo l]on 03-26-2024 Neutrophils (Bld) [#/Vol] 6.1 10 3/uL 1.4-6.5 [facility] Neutrophils/100 WBC Auto (Bl d)on 03-26-2024 Neutrophils/100 WBC (Bld) 73.4 % 43.0-75.0 [facility] No Panel Informationon 03-26 Eosinophils # (Auto) 0.1 10 3/uL 0.0-0.7 [facility] Immature Granulocyte # (Auto) 0.02 10 3/uL 0.00-0.03 [facility] Troponin I High Sensitivity 12.4 pg/mL 4.0-51.3 [facility] Comment on above: CUT-OFF POINTS HAVE [...] volume (Bld) [Entitic vol] 10.8 fL 9.5-13.5 [facility] Platelets Auto (Bld) [#/Vol] on 03-26-2024 Platelets (Bld) [#/Vol] 225 10 3/uL 150-450 [facility] RBC Auto (Bld) [#/Vol]on RBC (Bld) [#/Vol] 4.36 10 6/uL 4.20-5.40 [facility] Serum or plasma anion gap de terminationon 03-26-2024 Anion gap [Moles/Vol] 9.8 mmol/L [facility] MR cervical spine wo conon 0 03-13-2024 MR cervical spine wo [place] [address] MRI Report Signed Patient: Joe Call MR#: [id number] 0 : 1945 Acct:[id number] Age/Sex: 78 / F ADM Date: 03/13/24 [facility]: Type: [facility] Attending Dr: Eloina Hussein MD Copies to: [...] Jarred Randolph M.D.03/13/2024 3:47 PM Dictation Location: [place] [address] Transcribed By: [facility] 03/13/24 1547 Dictated By: Jarred Randolph DO 03/13/24 1542 Signed By: 03/13/24 1547 Normal [facility] XR pre/post mri xrayon 03-13 XR pre/post mri xray [place] [address] MRI Report Signed Patient: Joe Call MR#: [id number] 0 : 1945 Acct:[id number] Age/Sex: 78 / F ADM Date: 03/13/24 [facility] Room: Type: [facility] Attending Dr: Eloina Hussein MD Copies to: Eloina Mullins MD Ordering Provider: Eloina Mullins MD Date of Service: 03/13/24 MR/MR lumbar spine wo con: M54.50 ([id number]) XR/XR pre/post mri xray: M54.50 MRI Lumbar [...] Jarred Randolph M.D.03/13/2024 3:58 PM Dictation Location: [place] [address] Transcribed By: [facility] 03/13/24 1559 Dictated By: Jarred Randolph DO 03/13/24 1551 Signed By: 03/13/24 1558 [facility] Office Visiton 03-07-2024 Follow-up visit [id number] Joe Call 1945 Date Provider Department Center 03/07/2024 RICA DEAN Family History Problem Relation Age of Onset Coronary artery disease Other Diabetes Other Polycystic kidney disease Other Family Status - Relation Status Age at Other Level of Service:[address] [place] OFFICE/OUTPATIENT ESTABLISHED MOD MDM 30 MIN Reason for Visit and Comments: Follow-up [084156] - 6 month [facility] Office Visiton 08-17-2023 Follow-up visit [id number] Joe Call 1945 Date Provider Department Center 08/17/2023 [id number] GILLILAND Family History Problem Relation Age of Onset Coronary artery disease Other Diabetes Other Polycystic kidney disease Other Family Status - Relation Status Age at Other Level of Service:[address] [place] OFFICE/OUTPATIENT ESTABLISHED MOD MDM 30-39 MIN [facility] 36on 07-25-2023 36 Pt informed [facility] 36on 07-24-2023 37 She does not need to drink 4 bottle of water. She needs to maintain a 2 L fluid restriction. This includes all fluid not just water. In regards to sleep, I told her she would need to discuss that with her PCP. Thanks. [facility] Office Visiton 07-23-2023 Follow-up visit [id number] Joe Call 1945 Date Provider Department Center 07/23/2023 ENZO BROWNE Family History Problem Relation Age of Onset Coronary artery disease Other Diabetes Other Polycystic kidney disease Other Family Status - Relation Status Age at Other Level of Service:[address] [place] OFFICE/OUTPATIENT ESTABLISHED MOD MDM 30-39 MIN [facility] Office Visiton 04-25-2023 Follow-up visit [id number] Joe Call 1945 Date Provider Department Center 04/25/2023 RICA DEAN Family History Problem Relation Age of Onset Coronary artery disease Other Diabetes Other Polycystic kidney disease Other Family Status - Relation Status Age at Other Level of Service:[address] [place] OFFICE/OUTPATIENT ESTABLISHED MOD MDM 30-39 MIN Reason for Visit and Comments: Atrial Fibrillation [80] Congestive Heart Failure [127] Hypertension [302135] Normal [facility] GI PANEL (PCR)on 03-06-2023 Adenovirus F 40/41 Not detected Normal NOT DETECTED [facility] Comment on above: Performed By: #### P OCGLUC #### [facility] [address] [place] [address] Dr. Kasia Nath Astrovirus Not detected Normal NOT DETECTED [facility] Comment on above: Performed By: #### P OCGLUC #### [facility] [address] [place] [address] Dr. Kasia Nath C. Diff toxin A/B Detected Critically abnormal NOT DETECTED [facility] Comment on above: Performed By: #### P OCGLUC #### [facility] [address] [place] [address] Dr. Kasia Nath Campylobacter Detected Critically abnormal NOT DETECTED [facility] Comment on above: Performed By: #### P OCGLUC #### [facility] [address] [place] [address] Dr. Kasia Nath Cryptosporidium Not detected Normal NOT DETECTED [facility] Comment on above: Performed By: #### P OCGLUC #### [facility] [address] [place] [address] Dr. Kasia Nath Cyclos. Cayetanensis Not detected Normal NOT DETECTED [facility] Comment on above: Performed By: #### P OCGLUC #### [facility] [address] [place] [address] Dr. Kasia Nath E. Coli O157 Not Applicable Normal Not Applicable [facility] Comment on above: Performed By: #### P OCGLUC #### [facility] [address] [place] [address] Dr. Kasia Nath E. histolytica Not detected Normal NOT DETECTED [facility] Comment on above: Performed By: #### P OCGLUC #### [facility] [address] [place] [address] Dr. Kasia Nath EAEC Not detected Normal NOT DETECTED [facility] Comment on above: Performed By: #### P OCGLUC #### [facility] [address] [place] [address] Dr. Kasia Nath EIEC Not detected Normal NOT DETECTED [facility] Comment on above: Performed By: #### P OCGLUC #### [facility] [address] [place] [address] [address] Kasia Nath EPEC Not detected Normal NOT DETECTED [facility] Comment on above: Performed By: #### P OCGLUC #### [facility] [address] [place] [address] Dr. Kasia Nath ETEC Not detected Normal NOT DETECTED [facility] Comment on above: Performed By: #### P OCGLUC #### [facility] [address] [place] [address] Dr. Kasia Nath G. Lamblia Not detected Normal NOT DETECTED [facility] Comment on above: Performed By: #### P OCGLUC #### [facility] [address] [place] [address] Dr. Kasia KHAN CONTROLS PASSED Normal [facility] Comment on above: Performed By: #### P OCGLUC #### [facility] [address] [place] [address] Dr. Kasia [facility] HEAD[facility] GI PANEL BACTERIA Normal T [facility] Comment on above: Performed By: #### P OCGLUC #### [facility] [address] [place] [address] Dr. Kasia GE ECOLI GI PANEL DIARRHEAGENIC E.COLI / SHIGELLA Normal [facility] Comment on above: Performed By: #### P OCGLUC #### [facility] [address] [place] [address] [address] Kasia GE INFO SEE BELOW Normal [facility] Comment on above: Result Comment: EAEC - Enteroaggregative E. Coli EPEC- Enteropathogenic E. Coli ETEC- Enterotoxigenic E. Coli lt/st STEC- Shigella-like toxin-producing E. Coli stx1/stx2 EIEC- Shigella/Enteroinvasive E. Coli Performed By: #### P OCGLUC #### [facility] [address] [place] [address] [address] Kasia GE PARASITES GI PANEL PARASITES Normal [facility] Comment on above: Performed By: #### P OCGLUC #### [facility] [address] [place] [address] [address] Kasia GE VIRUS GI PANEL VIRUSES Normal [facility] Comment on above: Performed By: #### P OCGLUC #### [facility] [address] [place] [address] [address] Kasia Nath Norovirus GI/GII Not detected Normal NOT DETECTED [facility] Comment on above: Performed By: #### P OCGLUC #### [facility] [address] [place] [address] [address] Kasia Nath P. Shigelloides Not detected Normal NOT DETECTED [facility] Comment on above: Performed By: #### P OCGLUC #### [facility] [address] [place] [address] [address] Kasia Nath Rotavirus A Not detected Normal NOT DETECTED [facility] Comment on above: Performed By: #### P OCGLUC #### [facility] [address] [place] [address] [address] Kasia Nath Salmonella Not detected Normal NOT DETECTED [facility] Comment on above: Performed By: #### P OCGLUC #### [facility] [address] [place] [address] [address] Kasia Nath Sapovirus Not detected Normal NOT DETECTED [facility] Comment on above: Performed By: #### P OCGLUC #### [facility] [address] [place] [address] [address] Kasia Nath STEC Not detected Normal NOT DETECTED [facility] Comment on above: Performed By: #### P OCGLUC #### [facility] [address] [place] [address] [address] Kasia Nath Vibrio Not detected Normal NOT DETECTED [facility] Comment on above: Performed By: #### P OCGLUC #### [facility] [address] [place] [address] Dr. Kasia Nath Vibrio Cholera Not detected Normal NOT DETECTED [facility] Comment on above: Performed By: #### P OCGLUC #### [facility] [address] [place] [address] Dr. Kasia Nath Y. Enterocolitica Not detected Normal NOT DETECTED [facility] Comment on above: Performed By: #### P OCGLUC #### [facility] [address] [place] [address] Dr. Kasia Nath CBC AUTO DIFFon 02-14-2023 BASO # 0.0 103/ul Normal 0.0-0.1 [facility] Comment on above: Performed By: #### P OCGLUC #### [facility] [address] [place] [address] Dr. Kasia Nath Basophils/100 WBC (Bld) 0.5 % Normal 0.2-2.0 [facility] Comment on above: Performed By: #### P OCGLUC #### [facility] [address] [place] [address] Dr. Kasia Nath EO # 0.2 103/ul Normal 0.0-0.7 [facility] Comment on above: Performed By: #### P OCGLUC #### [facility] [address] [place] [address] Dr. Kasia Nath Eosinophils/100 WBC (Bld) 2.7 % Normal 0.9-7.0 [facility] Comment on above: Performed By: #### P OCGLUC #### [facility] [address] [place] [address] Dr. Kasia Nath Erythrocyte distribution width (RBC) [Ratio] 13.0 % Normal 11.0-15.0 [facility] Comment on above: Performed By: #### P OCGLUC #### [facility] [place] [facility] [address] [place] [address] Dr. Kasia Nath Hematocrit (Bld) [Volume fraction] 35.9 % Critically low 36.0-48.0 [facility] Comment on above: Performed By: #### P OCGLUC #### [facility] [place] [facility] [address] [place] [address] Dr. Kasia Nath Hemoglobin (Bld) [Mass/Vol] 12.0 g/dL Normal 12.0-16.0 [facility] [place] Comment on above: Performed By: #### P OCGLUC #### [facility] [place] [facility] [address] [address] [address] Kasia Nath IG # 0.02 10e3/ul Normal 0.00-0.03 [facility] Comment on above: Performed By: #### P OCGLUC #### [facility] [place] [facility] [address] [place] [address] Dr. Kasia Nath IG % 0.3 % Normal 0.0-0.5 [facility] Comment on above: Performed By: #### P OCGLUC #### [facility] [place] [facility] [address] [place] [address] Dr. Kasia Nath LYMPH # 1.8 103/ul Normal 1.2-3.8 [facility] Comment on above: Performed By: #### P OCGLUC #### [facility] [place] [facility] [address] [place] [address] Dr. Kasia Nath Lymphocytes/100 WBC (Bld) 22.8 % Normal 20.5-60.0 [facility] Comment on above: Performed By: #### P OCGLUC #### [facility] [place] [facility] [address] [place] [address] Dr. Kasia Nath MANUAL DIFF REQ NO Normal [facility] Comment on above: Performed By: #### P OCGLUC #### [facility] [place] [facility] [address] [address] [address] Kasia Nath MCH (RBC) [Entitic mass] 29.4 pg Normal 26.7-34.0 [facility] [place] Comment on above: Performed By: #### P OCGLUC #### [facility] [place] [facility] [address] [address] [address] Kasia Nath MCHC (RBC) [Mass/Vol] 33.4 g/dL Normal 29.9-35.2 [facility] [place] Comment on above: Performed By: #### P OCGLUC #### [facility] [place] [facility] [address] [place] [address] Dr. Kasia Nath MCV (RBC) [Entitic vol] 88.0 fL Normal 81.0-99.0 [facility] Comment on above: Performed By: #### P OCGLUC #### [facility] [place] [facility] [address] [place] [address] Dr. Kasia Nath MONO # 0.7 103/ul Normal 0.3-0.8 [facility] Comment on above: Performed By: #### P OCGLUC #### [facility] [place] [facility] [address] [place] [address] Dr. Kasia Nath Monocytes/100 WBC (Bld) 9.3 % Normal 1.7-12.0 [facility] Comment on above: Performed By: #### P OCGLUC #### [facility] [place] [facility] [address] [place] [address] Dr. Kasia Nath NEUT # 5.1 103/ul Normal 1.4-6.5 [facility] Comment on above: Performed By: #### P OCGLUC #### [facility] [place] [facility] [address] [place] [address] Dr. Kasia Nath Neutrophils/100 WBC (Bld) 64.4 % Normal 43.0-75.0 [facility] Comment on above: Performed By: #### P OCGLUC #### [facility] [place] [facility] [address] [place] [address] Dr. Kasia Nath Platelet mean volume (Bld) [Entitic vol] 11.7 fL Normal 9.5-13.5 [facility] Comment on above: Performed By: #### P OCGLUC #### [facility] [place] [facility] [address] [place] [address] Dr. Kasia Nath PLT 175 103/ul Normal 150-450 [facility] [place] Comment on above: Performed By: #### P OCGLUC #### [facility] [place] [facility] [address] [place] [address] Dr. Kasia Nath RBC 4.08 106/ul Critically low 4.20-5.40 [facility] Comment on above: Performed By: #### P OCGLUC #### [facility] [place] [facility] [address] [place] [address] Dr. Kasia Nath WBC 7.9 103/ul Normal 4.0-11.0 [facility] Comment on above: Performed By: #### P OCGLUC #### [facility] [place] [facility] [address] [place], [place] [address] Dr. Kasia Nath LIPASEon 02-14-2023 Lipase [Catalytic activity/Vol] 51.0 U/L Critically low 73.0-393.0 [facility] Comment on above: Performed By: #### L IPA, CMP ####[facility] [place] [address] [address]DrDoreen Nath PROF 14(COMP METB)on 023 Albumin [Mass/Vol] 2.8 g/dL Critically low 3.4-5.0 [facility] Comment on above: Performed By: #### L IPA, CMP ####[facility] [place] [address] [address]DrDoreen Nath Albumin/Globulin [Mass ratio] 0.7 {ratio} Normal [facility] Comment on above: Performed By: #### L IPA, CMP ####[facility] [place] [address] [address]Dr. Kasia Nath ALP [Catalytic activity/Vol] 90 U/L Normal 46-116 [facility] Comment on above: Performed By: #### L IPA, CMP ####[facility] [place] [address] [address]DrDoreen Nath ALT [Catalytic activity/Vol] 15 U/L Normal 14-59 [facility] Comment on above: Performed By: #### L IPA, CMP ####[facility] [place] [address] [address]Dr. Kasia Nath Anion gap [Moles/Vol] 15.6 mmol/L Normal [facility] Comment on above: Performed By: #### L IPA, CMP ####[facility] [place] [address] [address]Dr. Kasia Nath AST [Catalytic activity/Vol] 9 U/L Critically low 15-37 [facility] Comment on above: Performed By: #### L IPA, CMP ####[facility] [place] [address] [address]Dr. Fartuncristy Nath Bilirubin [Mass/Vol] 0.4 mg/dL Normal 0.2-1.0 [facility] Comment on above: Performed By: #### L IPA, CMP ####[facility] [place] [address] [address]Dr. Kasia Nath Calcium [Mass/Vol] 9.1 mg/dL Normal 8.5-10.1 [facility] Comment on above: Performed By: #### L IPA, CMP ####[facility] [place] [address] [place], [place] [address]Dr. Fartuncristy Nath Chloride [Moles/Vol] 104 mmol/L Normal 98-107 [facility] Comment on above: Performed By: #### L IPA, CMP ####[facility] [place] [address] [place], [place] [address]Dr. Kasia Nath CO2 [Moles/Vol] 17.0 mmol/L Critically low 21.0-32.0 [facility] Comment on above: Performed By: #### L IPA, CMP ####[facility] [place] [address] [place], [place] [address]Dr. Fartuncristy Nath Creatinine [Mass/Vol] 1.78 mg/dL Critically high 0.55-1.02 [facility] Comment on above: Performed By: #### L IPA, CMP ####[facility] [place] [address] [place], [place] [address]Dr. Kasia Nath EGFR-AF CAMEROONIAN 34 mL/min/1.73m2 Critically low >=60 [facility] [place] Comment on above: Performed By: #### L IPA, CMP ####[facility] [place] [address] [place], [place] [address]Dr. Kasia Nath EGFR-NON AF CAMEROONIAN 28 mL/min/1.73m2 Critically low >=60 [facility] Comment on above: Performed By: #### L IPA, CMP ####[facility] [place] [address] [place], [place] [address]Dr. Kasia Nath Globulin (S) [Mass/Vol] 4.3 g/dL Normal [facility] Comment on above: Performed By: #### L IPA, CMP ####[facility] [place] [address] [address]Dr. Fartuncristy Portillo Glucose [Mass/Vol] 248 mg/dL Critically high 74-106 [facility] Comment on above: Performed By: #### L IPA, CMP ####[facility] [place] [address] [place], [place] [address]Dr. Kasia Nath Potassium [Moles/Vol] 4.6 mmol/L Normal 3.5-5.1 [facility] Comment on above: Performed By: #### L IPA, CMP ####[facility] [place] [address] [place], [place] [address]Dr. Kasia Nath Protein [Mass/Vol] 7.1 g/dL Normal 6.4-8.2 [facility] Comment on above: Performed By: #### L IPA, CMP ####[facility] [place] [address] [place], [place] [address]Dr. Kasia Nath Sodium [Moles/Vol] 132 mmol/L Critically low 136-145 [facility] Comment on above: Performed By: #### L IPA, CMP ####[facility] [place] [address] [place], [place] [address]Dr. Kasia Nath Urea nitrogen [Mass/Vol] 78.0 mg/dL Critically high 7.0-18.0 [facility] Comment on above: Performed By: #### L IPA, CMP ####[facility] [place] [address] [place], [place] [address]Dr. Kasia Nath Urea nitrogen/Creatinine [Mass ratio] 43.8 mg/mg Normal [facility] Comment on above: Performed By: #### L IPA, CMP ####[facility] [place] [address] [place], [place] [address]Dr. Kasia Nath CBC AUTO DIFFon 02-13-2023 BASO # 0.0 103/ul Normal 0.0-0.1 [facility] Comment on above: Performed By: #### C BC ####[facility] [place] [address] [place], [place] [address]Dr. Kasia Nath Basophils/100 WBC (Bld) 0.5 % Normal 0.2-2.0 [facility] Comment on above: Performed By: #### C BC ####[facility] [place] [address] [address]Dr. Kasia Nath EO # 0.1 103/ul Normal 0.0-0.7 [facility] [place] Comment on above: Performed By: #### C BC ####[facility] [place] [address] [place], [place] [address]Dr. Kasia Nath Eosinophils/100 WBC (Bld) 1.0 % Normal 0.9-7.0 [facility] Comment on above: Performed By: #### C BC ####[facility] [place] [address] [place], [place] [address]Dr. Kasia Nath Erythrocyte distribution width (RBC) [Ratio] 12.8 % Normal 11.0-15.0 [facility] Comment on above: Performed By: #### C BC ####[facility] [place] [address] [place], [place] [address]Dr. Kasia Nath Hematocrit (Bld) [Volume fraction] 38.5 % Normal 36.0-48.0 [facility] Comment on above: Performed By: #### C BC ####[facility] [place] [address] [place], [place] [address]Dr. Kasia Nath Hemoglobin (Bld) [Mass/Vol] 13.0 g/dL Normal 12.0-16.0 [facility] Comment on above: Performed By: #### C BC ####[facility] [place] [address] [place], [place] [address]Dr. Kasia Nath IG # 0.02 10e3/ul Normal 0.00-0.03 [facility] [place] Comment on above: Performed By: #### C BC ####[facility] [place] [address] [place], [place] [address]Dr. Kasia Nath IG % 0.2 % Normal 0.0-0.5 [facility] Comment on above: Performed By: #### C BC ####[facility] [place] [address] [place], [place] [address]Dr. Kasia Nath LYMPH # 0.9 103/ul Critically low 1.2-3.8 [facility] Comment on above: Performed By: #### C BC ####[facility] [place] [address] [address]Dr. Fartuncristy Nath Lymphocytes/100 WBC (Bld) 10.0 % Critically low 20.5-60.0 [facility] Comment on above: Performed By: #### C BC ####[facility] [place] [address] [address]Dr. Kasia Nath MANUAL DIFF REQ NO Normal [facility] Comment on above: Performed By: #### C BC ####[facility] [place] [address] [address]Dr. Fartuncristy Nath MCH (RBC) [Entitic mass] 29.5 pg Normal 26.7-34.0 [facility] Comment on above: Performed By: #### C BC ####[facility] [place] [address] [place], [place] [address]Dr. Kasia Nath MCHC (RBC) [Mass/Vol] 33.8 g/dL Normal 29.9-35.2 [facility] Comment on above: Performed By: #### C BC ####[facility] [place] [address] [address]Dr. Kasia Nath MCV (RBC) [Entitic vol] 87.5 fL Normal 81.0-99.0 [facility] Comment on above: Performed By: #### C BC ####[facility] [place] [address] [place], [place] [address]Dr. Kasia Nath MONO # 0.5 103/ul Normal 0.3-0.8 [facility] Comment on above: Performed By: #### C BC ####[facility] [place] [address] [place], [place] [address]Dr. Kasia Nath Monocytes/100 WBC (Bld) 5.7 % Normal 1.7-12.0 [facility] Comment on above: Performed By: #### C BC ####[facility] [place] [address] [address]Dr. Kasia Nath NEUT # 7.2 103/ul Critically high 1.4-6.5 [facility] Comment on above: Performed By: #### C BC ####[facility] [place] [address] [address]Dr. Kasia Nath Neutrophils/100 WBC (Bld) 82.6 % Critically high 43.0-75.0 [facility] [place] Comment on above: Performed By: #### C BC ####[facility] [place] [address] [address]Dr. Kasia Nath Platelet mean volume (Bld) [Entitic vol] 11.8 fL Normal 9.5-13.5 [facility] [place] Comment on above: Performed By: #### C BC ####[facility] [place] [address] [address]Dr. Kasia Nath PLT 187 103/ul Normal 150-450 [facility] [place] Comment on above: Performed By: #### C BC ####[facility] [place] [address] [address]Dr. Kasia Nath RBC 4.40 106/ul Normal 4.20-5.40 [facility] [place] Comment on above: Performed By: #### C BC ####[facility] [place] [address] [address]Dr. Kasia Nath WBC 8.8 103/ul Normal 4.0-11.0 [facility] [place] Comment on above: Performed By: #### C BC ####[facility] [place] [address] [place], [place] [address]Dr. Kasia Nath CT ABD/PELVIS WO CONon 02-13 [...] JACOB MCCURDY Date: 2023-02-13 14:40 Normal [facility] [place] CULTURE URINEon 02-13-2023 CULTURE URINE Culture Observations : LIGHT GROWTH OF MIXED GENITAL VNO. NO POTENTIAL PATHOGENS SEEN. Normal [facility] [place] Comment on above: Performed By: #### U RCX ####[facility] [place] [address] [place], [place] [address]Dr. Kasia Nath [facility]-19 [facility]on SARS-CoV-2 (COVID-19) RNA FERN+probe Ql (Unsp spec) Not detected Normal NOT DETECTED [facility] [place] Comment on above: Result Comment: When diagnostic [...] for this test is supported by the Vice [employer] of [employer] Human Service's declaration that [...] used). Performed By: #### P OCGLUC #### [facility] [place] [facility] [address] [place] [address] Dr. Kasia Nath GI PANEL (PCR)on 02-13-2023 Adenovirus F 40/41 Not detected Normal NOT DETECTED [facility] Comment on above: Performed By: #### C BC #### [facility] [place] [facility] [address] [place] [address] Dr. Kasia Nath Astrovirus Not detected Normal NOT DETECTED [facility] Comment on above: Performed By: #### C BC #### [facility] [place] [facility] [address] [place] [address] Dr. Kasia Del Real. Diff toxin A/B Not detected Normal NOT DETECTED [facility] Comment on above: Performed By: #### C BC #### [facility] [place] [facility] [address] [place] [address] Dr. Kasia Nath Campylobacter Not detected Normal NOT DETECTED [facility] Comment on above: Performed By: #### C BC #### [facility] [place] [facility] [address] [place] [address] Dr. Kasia Nath Cryptosporidium Not detected Normal NOT DETECTED [facility] Comment on above: Performed By: #### C BC #### [facility] [place] [facility] [address] [place] [address] Dr. Kasia Nath Cyclos. Cayetanensis Not detected Normal NOT DETECTED [facility] [place] Comment on above: Performed By: #### C BC #### [facility] [place] [facility] [address] [place] [address] Dr. Kasia Nath E. Coli O157 Not Applicable Normal Not Applicable [facility] [place] Comment on above: Performed By: #### C BC #### [facility] [place] [facility] [address] [place] [address] Dr. Kasia Nath E. histolytica Not detected Normal NOT DETECTED [facility] Comment on above: Performed By: #### C BC #### [facility] [place] [facility] [address] [place], [place] [id number] Dr. Kasia Nath EAEC Not detected Normal NOT DETECTED [facility] Comment on above: Performed By: #### C BC #### [facility] [place] [facility] [address] [place] [address] Dr. Kasia Nath EIEC Not detected Normal NOT DETECTED [facility] Comment on above: Performed By: #### C BC #### [facility] [place] [facility] [address] [place] [address] Dr. Kasia Nath EPEC Not detected Normal NOT DETECTED [facility] Comment on above: Performed By: #### C BC #### [facility] [place] [facility] [address] [place] [address] Dr. Kasia Nath ETEC Not detected Normal NOT DETECTED [facility] Comment on above: Performed By: #### C BC #### [facility] [place] [facility] [address] [place] [address] Dr. Kasia Nath G. Lamblia Not detected Normal NOT DETECTED [facility] Comment on above: Performed By: #### C BC #### [facility] [place] [facility] [address] [place] [address] Dr. Kasia KHAN CONTROLS PASSED Normal [facility] Comment on above: Performed By: #### C BC #### [facility] [place] [facility] [address] [place] [address] Dr. Kasia [facility] HEADER GI PANEL BACTERIA Normal T [facility] Comment on above: Performed By: #### C BC #### [facility] [place] [facility] [address] [place] [address] Dr. Kasia GE ECOLI GI PANEL DIARRHEAGENIC E.COLI / SHIGELLA Normal [facility] Comment on above: Performed By: #### C BC #### [facility] [place] [facility] [address] [place] [address] Dr. Kasia GE INFO SEE BELOW Normal [facility] Comment on above: Result Comment: EAEC - Enteroaggregative E. Coli EPEC- Enteropathogenic E. Coli ETEC- Enterotoxigenic E. Coli lt/st STEC- Shigella-like toxin-producing E. Coli stx1/stx2 EIEC- Shigella/Enteroinvasive E. Coli Performed By: #### C BC #### [facility] [place] [facility] [address] [address] [address] Kasia GE PARASITES GI PANEL PARASITES Normal [facility] [place] Comment on above: Performed By: #### C BC #### [facility] [place] [facility] [address] [place] [address] Dr. Kasia GE VIRUS GI PANEL VIRUSES Normal [facility] Comment on above: Performed By: #### C BC #### [facility] [place] [facility] [address] [place] [address] Dr. Kasia Nath Norovirus GI/GII Not detected Normal NOT DETECTED [facility] [place] Comment on above: Performed By: #### C BC #### [facility] [place] [facility] [address] [place] [address] Dr. Kasia Nath P. Shigelloides Not detected Normal NOT DETECTED [facility] Comment on above: Performed By: #### C BC #### [facility] [place] [facility] [address] [place] [address] Dr. Kasia Nath Rotavirus A Not detected Normal NOT DETECTED [facility] Comment on above: Performed By: #### C BC #### [facility] [place] [facility] [address] [place] [address] Dr. Kasia Nath Salmonella Not detected Normal NOT DETECTED [facility] Comment on above: Performed By: #### C BC #### [facility] [place] [facility] [address] [place] [address] Dr. Kasia Nath Sapovirus Not detected Normal NOT DETECTED [facility] Comment on above: Performed By: #### C BC #### [facility] [place] [facility] [address] [place] [address] Dr. aKsia Nath STEC Not detected Normal NOT DETECTED [facility] Comment on above: Performed By: #### C BC #### [facility] [place] [facility] [address] [place] [address] Dr. Kasia Nath Vibrio Not detected Normal NOT DETECTED [facility] Comment on above: Performed By: #### C BC #### [facility] [place] [facility] [address] [place] [address] Dr. Kasia Nath Vibrio Cholera Not detected Normal NOT DETECTED [facility] Comment on above: Performed By: #### C BC #### [facility] [place] [facility] [address] [place] [address] Dr. Kasia Nath Y. Enterocolitica Not detected Normal NOT DETECTED [facility] Comment on above: Performed By: #### C BC #### [facility] [place] [facility] [address] [place] [address] Dr. Kasia Nath LACTATE/LACTIC ACIDon 2022 Lactate [Moles/Vol] 1.7 mmol/L Normal 0.4-2.0 [facility] Comment on above: Performed By: #### L ACT ####[facility] [place] [address] [place], [place] [address]Dr. Kasia Nath LIPASEon 02-13-2023 Lipase [Catalytic activity/Vol] 82.0 U/L Normal 73.0-393.0 [facility] Comment on above: Performed By: #### L IPA, CMP #### [facility] [place] [facility] [address] [place] [address] Dr. Kasia Nath POINT OF CARE GLUCOSEon Glucose [Mass/Vol] 229 mg/dL Critically high -106 [facility] Comment on above: Performed By: #### P OCGLUC #### [facility] [place] [facility] [address] [place] [address] Dr. Kasia Nath Glucose [Mass/Vol] 474 mg/dL Critically high [facility]106 [facility] Comment on above: Performed By: #### P OCGLUC #### [facility] [place] [facility] [address] [place] [address] Dr. Kasia Nath PROF 14(COMP METB)on 023 Albumin [Mass/Vol] 3.4 g/dL Normal 3.4-5.0 [facility] Comment on above: Performed By: #### L IPA, CMP #### [facility] [place] [facility] [address] [place] [address] Dr. Kasia Nath Albumin/Globulin [Mass ratio] 0.7 {ratio} Normal [facility] Comment on above: Performed By: #### L IPA, CMP #### [facility] [place] [facility] [address] [place] [address] Dr. Kasia Nath ALP [Catalytic activity/Vol] 106 U/L Normal 46-116 [facility] Comment on above: Performed By: #### L IPA, CMP #### [facility] [address] [place] [address] [address] Kasia Nath ALT [Catalytic activity/Vol] 21 U/L Normal 14-59 [facility] Comment on above: Performed By: #### L IPA, CMP #### [facility] [address] [address] [address] Kasia Nath Anion gap [Moles/Vol] 17.7 mmol/L Normal Th [facility] Comment on above: Performed By: #### L IPA, CMP #### [facility] [address] [place] [address] [address] Kasia Nath AST [Catalytic activity/Vol] 11 U/L Critically low 15-37 [facility] Comment on above: Performed By: #### L IPA, CMP #### [facility] [address] [place] [address] [address] Kasia Nath Bilirubin [Mass/Vol] 0.5 mg/dL Normal 0.2-1.0 [facility] Comment on above: Performed By: #### L IPA, CMP #### [facility] [address] [address] [address] Kasia Nath Calcium [Mass/Vol] 9.6 mg/dL Normal 8.5-10.1 [facility] Comment on above: Performed By: #### L IPA, CMP #### [facility] [address] [address] [address] Kasia Nath Chloride [Moles/Vol] 99 mmol/L Normal 98-107 [facility] Comment on above: Performed By: #### L IPA, CMP #### [facility] [address] [place] [address] [address] Kasia Nath CO2 [Moles/Vol] 20.6 mmol/L Critically low 21.0-32.0 [facility] Comment on above: Performed By: #### L IPA, CMP #### [facility] [address] [place] [address] [address] Kasia Nath Creatinine [Mass/Vol] 2.14 mg/dL Critically high 0.55-1.02 [facility] Comment on above: Performed By: #### L IPA, CMP #### [facility] [address] [place] [address] [address] Kasia Nath EGFR-AF CAMEROONIAN 27 mL/min/1.73m2 Critically low >=60 [facility] Comment on above: Performed By: #### L IPA, CMP #### [facility] [address] [place] [address] [address] Kasia Nath EGFR-NON AF CAMEROONIAN 22 mL/min/1.73m2 Critically low >=60 [facility] Comment on above: Performed By: #### L IPA, CMP #### [facility] [address] [place] [address] [address] Kasia Nath Globulin (S) [Mass/Vol] 4.8 g/dL Normal [facility] Comment on above: Performed By: #### L IPA, CMP #### [facility] [address] [place] [address] [address] Kasia Nath Glucose [Mass/Vol] 498 mg/dL Critically high 74-106 [facility] Comment on above: Performed By: #### L IPA, CMP #### [facility] [address] [place] [address] [address] Kasia Nath Potassium [Moles/Vol] 5.3 mmol/L Critically high 3.5-5.1 [facility] Comment on above: Performed By: #### L IPA, CMP #### [facility] [address] [place] [address] [address] Kasia Nath Protein [Mass/Vol] 8.2 g/dL Normal 6.4-8.2 [facility] Comment on above: Performed By: #### L IPA, CMP #### [facility] [address] [place] [address] [address] Kasia Nath Sodium [Moles/Vol] 132 mmol/L Critically low 136-145 [facility] Comment on above: Performed By: #### L IPA, CMP #### [facility] [address] [place] [address] [address] Kasia Nath Urea nitrogen [Mass/Vol] 86.0 mg/dL Critically high 7.0-18.0 [facility] Comment on above: Performed By: #### L IPA, CMP #### [facility] [address] [place] [address] [address] Kasia Nath Urea nitrogen/Creatinine [Mass ratio] 40.2 mg/mg Normal [facility] Comment on above: Performed By: #### L IPA, CMP #### [facility] [address] [place] [address] [address] Kasia Nath UA RANDOM W/MICROSCOPICon BACTERIA TRACE Abnormal NONE SEEN [facility] Comment on above: Performed By: #### U AMIC ####[facility] [place] [address] [place], [place] [address]Dr. Kasia Nath Bilirubin Ql (U) Negative Normal NEGATIVE [facility] Comment on above: Performed By: #### U AMIC ####[facility] [address] [place], [place] [address]DrDoreen Nath CAST SEEN Abnormal NONE SEEN [facility] Comment on above: Performed By: #### U AMIC ####[facility] [address] [place] [address]Dr. Kasia Nath Clarity (U) CLEAR Normal CLEAR [facility] Comment on above: Performed By: #### U AMIC ####[facility] [address] [place] [address]Dr. Kasia Nath Color (U) LT. YELLOW Normal YELLOW [facility] Comment on above: Performed By: #### U AMIC ####[facility] I[address] [place], [place] [address]Dr. Kasia Nath Crystals LM Nom (Urine sed) NONE SEEN Normal NONE SEEN [facility] Comment on above: Performed By: #### U AMIC ####[facility] [address] [place], [place] [address]Dr. Kasia Nath Epithelial cells LM Ql (Urine sed) FEW Abnormal NONE SEEN /RARE [facility] Comment on above: Performed By: #### U AMIC ####[facility] [address] [place] [address]Dr. Kasia Nath Glucose Ql (U) >1000 Abnormal NEGATIVE [facility] Comment on above: Performed By: #### U AMIC ####[facility] [address] [place] [address]Dr. Kasia Nath Hemoglobin Ql (U) Negative Normal NEGATIVE The [facility] Comment on above: Performed By: #### U AMIC ####[facility] We[address] [place], [place] [address]Dr. Kasia Nath HYALINE CAST RARE Normal [facility] Comment on above: Performed By: #### U AMIC ####[facility] F[address] [place], [place] [address]Dr. Kasia Nath Ketones Ql (U) Negative Normal NEGATIVE [facility] Comment on above: Performed By: #### U AMIC ####[facility] [address] [place], [place] [address]Dr. Kasia Nath LEUKOCYTES Negative Normal NEGATIVE [facility] Comment on above: Performed By: #### U AMIC ####[facility] Dwkx[address] [place], [place] [address]Dr. Kasia Nath MUCOUS NONE SEEN Normal NONE SEEN [facility] Comment on above: Performed By: #### U AMIC ####[facility] [address] [place], [place] [address]Dr. Kasia Nath Nitrite Ql (U) Negative Normal NEGATIVE [facility] Comment on above: Performed By: #### U AMIC ####[facility] J[address] [place], [place] [address]Dr. Kasia Nath pH (U) 5.5 [pH] Normal 5-9 [facility] Comment on above: Performed By: #### U AMIC ####[facility] Dr[address] [place], [place] [address]Dr. Kasia Nath RBC 0-2 Normal 0-2 [facility] Comment on above: Performed By: #### U AMIC ####[facility] [address] [place] [address]Dr. Kasia Nath SPEC GRAVITY 1.015 Normal 1.005-<=1.02 5 [facility] Comment on above: Performed By: #### U AMIC ####[facility] J[address]be[address]cn[address] [place], [place] [address]Dr. Kasia Nath UA PROTEIN TRACE Normal NEGATIVE/ TRACE [facility] Comment on above: Performed By: #### U AMIC ####[facility] [address] [place] [address]Dr. Kasia Nath Urobilinogen Qn (U) 0.2 {Meka'U}/dL Normal 0.2 - 1. 0 [facility] Comment on above: Performed By: #### U AMIC ####[facility] [address] [place], [place] [address]Dr. Kasia Nath WBC 0-2 Abnormal NONE SEEN [facility] Comment on above: Performed By: #### U AMIC ####[facility] [address]bi[address] [place], [place] [address]Dr. Kasia Nath BNPon 01-16-2023 Natriuretic peptide B (Bld) [Mass/Vol] 1675.0 pg/mL Normal <=1,800.0 [facility] Comment on above: Performed By: #### B SLOT FLOOR ATTENDANT, CMP ####[facility] Z[address]ks[address] [place], [place] [address]Dr. Kasia Nath PROF 14(COMP METB)on 023 Albumin [Mass/Vol] 3.4 g/dL Normal 3.4-5.0 [facility] Comment on above: Performed By: #### B SLOT FLOOR ATTENDANT, CMP ####[facility] Zn[address] [place], [place] [address]Dr. Kasia Nath Albumin/Globulin [Mass ratio] 0.8 {ratio} Normal [facility] Comment on above: Performed By: #### B SLOT FLOOR ATTENDANT, CMP ####[facility] Q[address] [place], [place] [address]Dr. Kasia Nath ALP [Catalytic activity/Vol] 99 U/L Normal 46-116 [facility] Comment on above: Performed By: #### B SLOT FLOOR ATTENDANT, CMP ####[facility] [address] [place] [address]Dr. Kasia Nath ALT [Catalytic activity/Vol] 18 U/L Normal 14-59 [facility] Comment on above: Performed By: #### B SLOT FLOOR ATTENDANT, CMP ####[facility] [address] [place], [place] [address]Dr. Fartuncristy Portillo Anion gap [Moles/Vol] 10.6 mmol/L Normal [facility] Comment on above: Performed By: #### B SLOT FLOOR ATTENDANT, CMP ####[facility] N[address] [place], [place] [address]Dr. Kasia Nath AST [Catalytic activity/Vol] 15 U/L Normal 15-37 [facility] Comment on above: Performed By: #### B SLOT FLOOR ATTENDANT, CMP ####[facility] [address] [place], [place] [address]Dr. Kasia Nath Bilirubin [Mass/Vol] 0.5 mg/dL Normal 0.2-1.0 [facility] Comment on above: Performed By: #### B SLOT FLOOR ATTENDANT, CMP ####[facility] [address]wu[address] [place], [place] [address]Dr. Kasia Nath Calcium [Mass/Vol] 9.1 mg/dL Normal 8.5-10.1 [facility] Comment on above: Performed By: #### B SLOT FLOOR ATTENDANT, CMP ####[facility] V[address] [place], [place] [address]Dr. Kasia Nath Chloride [Moles/Vol] 98 mmol/L Normal 98-107 [facility] Comment on above: Performed By: #### B SLOT FLOOR ATTENDANT, CMP ####[facility] [address]cf[address] [place], [place] [address]Dr. Kasia Nath CO2 [Moles/Vol] 30.4 mmol/L Normal 21.0-32.0 [facility] Comment on above: Performed By: #### B SLOT FLOOR ATTENDANT, CMP ####[facility] [address]ffq[address] [place], [place] [address]Dr. Kasia Nath Creatinine [Mass/Vol] 1.44 mg/dL Critically high 0.55-1.02 [facility] Comment on above: Performed By: #### B SLOT FLOOR ATTENDANT, CMP ####[facility] [address] [place] [id number]. Kasia Nath EGFR-AF CAMEROONIAN 43 mL/min/1.73m2 Critically low >=60 [facility] Comment on above: Performed By: #### B SLOT FLOOR ATTENDANT, CMP ####[facility] [address]yq[address] [place], [place] [address]Dr. Kasia Nath EGFR-NON AF CAMEROONIAN 35 mL/min/1.73m2 Critically low >=60 [facility] Comment on above: Performed By: #### B SLOT FLOOR ATTENDANT, CMP ####[facility] Rd[address]ale[address] [place], [place] [address]Dr. Kasia Nath Globulin (S) [Mass/Vol] 4.4 g/dL Normal [facility] Comment on above: Performed By: #### B SLOT FLOOR ATTENDANT, CMP ####[facility] P[address]hsri[address] [place], [place] [address]Dr. Kasia Nath Glucose [Mass/Vol] 401 mg/dL Critically high 74-106 [facility] Comment on above: Performed By: #### B SLOT FLOOR ATTENDANT, CMP ####[facility] [address] [place], [place] [address]Dr. Kasia Nath Potassium [Moles/Vol] 5.0 mmol/L Normal 3.5-5.1 [facility] Comment on above: Performed By: #### B SLOT FLOOR ATTENDANT, CMP ####[facility] [address]hc[address] [place], [place] [address]Dr. Kasia Nath Protein [Mass/Vol] 7.8 g/dL Normal 6.4-8.2 [facility] Comment on above: Performed By: #### B SLOT FLOOR ATTENDANT, CMP ####[facility] [address]va[address] [place], [place] [address]Dr. Kasia Nath Sodium [Moles/Vol] 134 mmol/L Critically low 136-145 [facility] Comment on above: Performed By: #### B SLOT FLOOR ATTENDANT, CMP ####[facility] [address] [place] [address]Dr. Kasia Nath Urea nitrogen [Mass/Vol] 46.0 mg/dL Critically high 7.0-18.0 [facility] Comment on above: Performed By: #### B SLOT FLOOR ATTENDANT, CMP ####[facility] [address] [place] [address]Dr. Kasia Nath Urea nitrogen/Creatinine [Mass ratio] 31.9 mg/mg Normal [facility] Comment on above: Performed By: #### B SLOT FLOOR ATTENDANT, CMP ####[facility] [address] [place] [address]Dr. Kasia Nath BNPon 01-05-2023 Natriuretic peptide B (Bld) [Mass/Vol] 1389.0 pg/mL Normal <=1,800.0 [facility] Comment on above: Performed By: #### B SLOT FLOOR ATTENDANT, CMADM, CMP ####[facility] [address] [place] [address]Dr. Kasia Nath CARDIAC EMERY ADMITon 023 CK [Catalytic activity/Vol] 138 U/L Normal 26-192 [facility] Comment on above: Performed By: #### B SLOT FLOOR ATTENDANT, CMADM, CMP ####[facility] [address] [place] [address]Dr. Kasia Portillo CK.MB [Mass/Vol] 2.22 ng/mL Normal <=3.60 [facility] Comment on above: Performed By: #### B SLOT FLOOR ATTENDANT, CMADM, CMP ####[facility] [address] [place] [address]Dr. Kasia Nath HSTROP 15.9 pg/mL Normal 4.0-51.3 [facility] Comment on above: Result Comment: CUT- OFF POINTS HAVE BEEN ESTABLISHED BASED ON THE FOURTH UNIVERSAL DEFINITIONS OF MYOCARDIAL INFARCTION. THE UPPER REFERENCE LIMIT (URL) OF TROPONIN, DEFINED THE 99TH PERCENTILE OF cTnI DISTRIBUTION IN A REFERENCE POPULATION, HAS BEEN CONFIRMED THE DECISION THRESHOLD FOR UT DIAGNOSIS. Performed By: #### B SLOT FLOOR ATTENDANT, CMADM, CMP ####[facility] [address] [place] [address]Dr. Kasia Nath GRETTA 178 ng/mL Critically high 9-82 [facility] Comment on above: Performed By: #### B SLOT FLOOR ATTENDANT, CMADM, CMP ####[facility] [address] [place] [id number]. Kasia Nath CBC AUTO DIFFon 01-05-2023 BASO # 0.1 103/ul Normal 0.0-0.1 [facility] Comment on above: Performed By: #### C BC #### [facility] [address] [place] [address] [address] Kasia Nath Basophils/100 WBC (Bld) 0.7 % Normal 0.2-2.0 [facility] Comment on above: Performed By: #### C BC #### [facility] [address] [place] [address] [address] Kasia Nath EO # 0.3 103/ul Normal 0.0-0.7 [facility] Comment on above: Performed By: #### C BC #### [facility] [address] [place] [address] [address] Kasia Nath Eosinophils/100 WBC (Bld) 2.9 % Normal 0.9-7.0 [facility] Comment on above: Performed By: #### C BC #### [facility] [address] [place] [address] [address] Kasia Nath Erythrocyte distribution width (RBC) [Ratio] 13.5 % Normal 11.0-15.0 [facility] Comment on above: Performed By: #### C BC #### [facility] [address] [place] [address] [address] Kasia Nath Hematocrit (Bld) [Volume fraction] 39.8 % Normal 36.0-48.0 [facility] Comment on above: Performed By: #### C BC #### [facility] [address] [place] [address] [address] Kasia Nath Hemoglobin (Bld) [Mass/Vol] 13.5 g/dL Normal 12.0-16.0 [facility] Comment on above: Performed By: #### C BC #### [facility] [address] [place] [address] [address] Kasia Nath IG # 0.02 10e3/ul Normal 0.00-0.03 [facility] Comment on above: Performed By: #### C BC #### [facility] [address] [place] [address] Dr. Kasia Nath IG % 0.2 % Normal 0.0-0.5 [facility] Comment on above: Performed By: #### C BC #### [facility] [address] [place] [address] Dr. Kasia Nath LYMPH # 1.9 103/ul Normal 1.2-3.8 [facility] Comment on above: Performed By: #### C BC #### [facility] [address] [place] [address] Dr. Kasia Nath Lymphocytes/100 WBC (Bld) 22.0 % Normal 20.5-60.0 [facility] Comment on above: Performed By: #### C BC #### [facility] [address] [place] [address] Dr. Kasia Nath MANUAL DIFF REQ NO Normal [facility] Comment on above: Performed By: #### C BC #### [facility] [address] [place] [address] Dr. Kasia Nath MCH (RBC) [Entitic mass] 29.8 pg Normal 26.7-34.0 [facility] Comment on above: Performed By: #### C BC #### [facility] [address] [place] [address] Dr. Kasia Nath MCHC (RBC) [Mass/Vol] 33.9 g/dL Normal 29.9-35.2 [facility] Comment on above: Performed By: #### C BC #### [facility] [address] [place] [address] Dr. Kasia Nath MCV (RBC) [Entitic vol] 87.9 fL Normal 81.0-99.0 [facility] Comment on above: Performed By: #### C BC #### [facility] [address] [place] [address] Dr. Kasia Nath MONO # 0.8 103/ul Normal 0.3-0.8 [facility] Comment on above: Performed By: #### C BC #### [facility] [address] [place] [address] Dr. Kasia Nath Monocytes/100 WBC (Bld) 8.8 % Normal 1.7-12.0 [facility] Comment on above: Performed By: #### C BC #### [facility] [address] [place] [address] Dr. Kasia Nath NEUT # 5.6 103/ul Normal 1.4-6.5 [facility] Comment on above: Performed By: #### C BC #### [facility] [address] [place] [address] Dr. Kasia Nath Neutrophils/100 WBC (Bld) 65.4 % Normal 43.0-75.0 [facility] Comment on above: Performed By: #### C BC #### [facility] [address] [place] [address] Dr. Kasia Nath Platelet mean volume (Bld) [Entitic vol] 10.6 fL Normal 9.5-13.5 [facility] Comment on above: Performed By: #### C BC #### [facility] [address] [place] [address] Dr. Kasia Nath PLT 222 103/ul Normal 150-450 [facility] Comment on above: Performed By: #### C BC #### [facility] [address] [place] [address] Dr. Kasia Nath RBC 4.53 106/ul Normal 4.20-5.40 [facility] Comment on above: Performed By: #### C BC #### [facility] [address] [place] [address] Dr. Kasia Nath WBC 8.6 103/ul Normal 4.0-11.0 [facility] Comment on above: Performed By: #### C BC #### [facility] [address] [place] [address] Dr. Kasia Nath PROF 14(COMP METB)on 023 Albumin [Mass/Vol] 3.3 g/dL Critically low 3.4-5.0 [facility] Comment on above: Performed By: #### B SLOT FLOOR ATTENDANT, CMADM, CMP #### [facility] [address] [address] [address] Kasia Nath Albumin/Globulin [Mass ratio] 0.7 {ratio} Normal [facility] Comment on above: Performed By: #### B SLOT FLOOR ATTENDANT, CMADM, CMP #### [facility] [address] [address] [address] Kasia Nath ALP [Catalytic activity/Vol] 106 U/L Normal 46-116 [facility] Comment on above: Performed By: #### B SLOT FLOOR ATTENDANT, CMADM, CMP #### [facility] [address] [address] [address] Kasia Nath ALT [Catalytic activity/Vol] 22 U/L Normal 14-59 [facility] Comment on above: Performed By: #### B SLOT FLOOR ATTENDANT, CMADM, CMP #### [facility] [address] [address] [address] Kasia Naht Anion gap [Moles/Vol] 12.0 mmol/L Normal [facility] Comment on above: Performed By: #### B SLOT FLOOR ATTENDANT, CMADM, CMP #### [facility] [address] [place] [address] Dr. Kasia Nath AST [Catalytic activity/Vol] 23 U/L Normal 15-37 [facility] Comment on above: Performed By: #### B SLOT FLOOR ATTENDANT, CMADM, CMP #### [facility] [address] [address] [address] Kasia Nath Bilirubin [Mass/Vol] 0.7 mg/dL Normal 0.2-1.0 [facility] Comment on above: Performed By: #### B SLOT FLOOR ATTENDANT, CMADM, CMP #### [facility] [address] [address] [address] Kasia Nath Calcium [Mass/Vol] 8.8 mg/dL Normal 8.5-10.1 [facility] Comment on above: Performed By: #### B SLOT FLOOR ATTENDANT, CMADM, CMP #### [facility] [address] [address] [address] Kasia Nath Chloride [Moles/Vol] 98 mmol/L Normal 98-107 [facility] Comment on above: Performed By: #### B SLOT FLOOR ATTENDANT, CMADM, CMP #### [facility] [address] [address] [address] Kasia Nath CO2 [Moles/Vol] 30.2 mmol/L Normal 21.0-32.0 [facility] Comment on above: Performed By: #### B SLOT FLOOR ATTENDANT, CMADM, CMP #### [facility] [address] [address] [address] Kasia Nath Creatinine [Mass/Vol] 1.19 mg/dL Critically high 0.55-1.02 [facility] Comment on above: Performed By: #### B SLOT FLOOR ATTENDANT, CMADM, CMP #### [facility] [address] [address] [address] Kasia Nath EGFR-AF CAMEROONIAN 53 mL/min/1.73m2 Critically low >=60 [facility] Comment on above: Performed By: #### B SLOT FLOOR ATTENDANT, CMADM, CMP #### [facility] [address] [address] [address] Kasia Nath EGFR-NON AF CAMEROONIAN 44 mL/min/1.73m2 Critically low >=60 [facility] Comment on above: Performed By: #### B SLOT FLOOR ATTENDANT, CMADM, CMP #### [facility] [place] [facility] [address] [address] [address] Kasia Nath Globulin (S) [Mass/Vol] 4.7 g/dL Normal [facility] Comment on above: Performed By: #### B SLOT FLOOR ATTENDANT, CMADM, CMP #### [facility] [place] [facility] [address] [address] [address] Kasia Nath Glucose [Mass/Vol] 124 mg/dL Critically high 74-106 [facility] Comment on above: Performed By: #### B SLOT FLOOR ATTENDANT, CMADM, CMP #### [facility] [place] [facility] [address] [address] [address] Kasia Ntah Potassium [Moles/Vol] 3.2 mmol/L Critically low 3.5-5.1 [facility] Comment on above: Performed By: #### B SLOT FLOOR ATTENDANT, CMADM, CMP #### [facility] [place] [facility] [address] [address] [address] Kasia Nath Protein [Mass/Vol] 8.0 g/dL Normal 6.4-8.2 [facility] Comment on above: Performed By: #### B SLOT FLOOR ATTENDANT, CMADM, CMP #### [facility] [place] [facility] [address] [address] [address] Kasia Nath Sodium [Moles/Vol] 137 mmol/L Normal 136-145 [facility] Comment on above: Performed By: #### B SLOT FLOOR ATTENDANT, CMADM, CMP #### [facility] [place] [facility] [address] [address] [address] Kasia Nath Urea nitrogen [Mass/Vol] 29.0 mg/dL Critically high 7.0-18.0 [facility] Comment on above: Performed By: #### B SLOT FLOOR ATTENDANT, CMADM, CMP #### [facility] [place] [facility] [address] [address] [address] Kasia Nath Urea nitrogen/Creatinine [Mass ratio] 24.4 mg/mg Normal [facility] Comment on above: Performed By: #### B SLOT FLOOR ATTENDANT, CMADM, CMP #### [facility] [place] [facility] [address] [address] [address] Kasia aNth TROPONIN, HIGH SENSITIVITYon 01-05-2023 HSTROP 18.4 pg/mL Normal 4.0-51.3 [facility] [place] Comment on above: Result Comment: CUT- OFF POINTS HAVE BEEN ESTABLISHED BASED ON THE FOURTH UNIVERSAL DEFINITIONS OF MYOCARDIAL INFARCTION. THE UPPER REFERENCE LIMIT (URL) OF TROPONIN, DEFINED THE 99TH PERCENTILE OF cTnI DISTRIBUTION IN A REFERENCE POPULATION, HAS BEEN CONFIRMED THE DECISION THRESHOLD FOR UT DIAGNOSIS. Performed By: #### H STROPN ####[facility] [place] [id number] [address]Dr. Kasia Nath XR CHEST 1 Von 01-05-2023 [...] BIN ROJAS Date: 2023-01-05 04:39 Normal [facility] [place] BNPon 01-02-2023 Natriuretic peptide B (Bld) [Mass/Vol] 2583.0 pg/mL Critically high <=1,800.0 [facility] Comment on above: Performed By: #### B SLOT FLOOR ATTENDANT, CMP ####[facility] [place] [address] [address]Dr. Kasia Nath CBC AUTO DIFFon 01-02-2023 BASO # 0.1 103/ul Normal 0.0-0.1 [facility] Comment on above: Performed By: #### P OCGLUC #### [facility] [place] [facility] [address] [address] [address] Kasia Nath Basophils/100 WBC (Bld) 0.9 % Normal 0.2-2.0 [facility] Comment on above: Performed By: #### P OCGLUC #### [facility] [place] [facility] [address] [address] [address] Kasia Nath EO # 0.2 103/ul Normal 0.0-0.7 [facility] Comment on above: Performed By: #### P OCGLUC #### [facility] [place] [facility] [address] [address] [address] Kasia Nath Eosinophils/100 WBC (Bld) 2.3 % Normal 0.9-7.0 [facility] Comment on above: Performed By: #### P OCGLUC #### [facility] [place] [facility] [address] [address] [address] Kasia Nath Erythrocyte distribution width (RBC) [Ratio] 13.8 % Normal 11.0-15.0 [facility] Comment on above: Performed By: #### P OCGLUC #### [facility] [place] [facility] [address] [place] [address] Dr. Kasia Nath Hematocrit (Bld) [Volume fraction] 35.5 % Critically low 36.0-48.0 [facility] Comment on above: Performed By: #### P OCGLUC #### [facility] [place] [facility] [address] [place] [address] Dr. Kasia Nath Hemoglobin (Bld) [Mass/Vol] 11.6 g/dL Critically low 12.0-16.0 [facility] Comment on above: Performed By: #### P OCGLUC #### [facility] [place] [facility] [address] [place] [address] Dr. Kasia Nath IG # 0.02 10e3/ul Normal 0.00-0.03 [facility] Comment on above: Performed By: #### P OCGLUC #### [facility] [place] [facility] [address] [place] [address] Dr. Kasia Nath IG % 0.3 % Normal 0.0-0.5 [facility] Comment on above: Performed By: #### P OCGLUC #### [facility] [place] [facility] [address] [place] [address] Dr. Kasia Nath LYMPH # 2.0 103/ul Normal 1.2-3.8 [facility] Comment on above: Performed By: #### P OCGLUC #### [facility] [place] [facility] [address] [place] [address] Dr. Kasia Nath Lymphocytes/100 WBC (Bld) 24.8 % Normal 20.5-60.0 [facility] Comment on above: Performed By: #### P OCGLUC #### [facility] [place] [facility] [address] [place] [address] Dr. Kasia Nath MANUAL DIFF REQ NO Normal [facility] Comment on above: Performed By: #### P OCGLUC #### [facility] [place] [facility] [address] [place] [address] Dr. Kasia Nath MCH (RBC) [Entitic mass] 28.7 pg Normal 26.7-34.0 [facility] Comment on above: Performed By: #### P OCGLUC #### [facility] [place] [facility] [address] [place] [address] Dr. Kasia Nath MCHC (RBC) [Mass/Vol] 32.7 g/dL Normal 29.9-35.2 [facility] Comment on above: Performed By: #### P OCGLUC #### [facility] [place] [facility] [address] [place] [address] Dr. Kasia Nath MCV (RBC) [Entitic vol] 87.9 fL Normal 81.0-99.0 [facility] Comment on above: Performed By: #### P OCGLUC #### [facility] [place] [facility] [address] [place] [address] Dr. Kasia Nath MONO # 0.8 103/ul Normal 0.3-0.8 [facility] Comment on above: Performed By: #### P OCGLUC #### [facility] [place] [facility] [address] [place] [address] Dr. Kasia Nath Monocytes/100 WBC (Bld) 9.6 % Normal 1.7-12.0 [facility] Comment on above: Performed By: #### P OCGLUC #### [facility] [place] [facility] [address] [place] [address] Dr. Kasia Nath NEUT # 5.0 103/ul Normal 1.4-6.5 [facility] Comment on above: Performed By: #### P OCGLUC #### [facility] [place] [facility] [address] [place] [address] Dr. Kasia Nath Neutrophils/100 WBC (Bld) 62.1 % Normal 43.0-75.0 [facility] Comment on above: Performed By: #### P OCGLUC #### [facility] [place] [facility] [address] [place] [address] Dr. Kasia Nath Platelet mean volume (Bld) [Entitic vol] 10.7 fL Normal 9.5-13.5 [facility] Comment on above: Performed By: #### P OCGLUC #### [facility] [place] [facility] [address] [place] [address] Dr. Kasia Nath PLT 204 103/ul Normal 150-450 [facility] Comment on above: Performed By: #### P OCGLUC #### [facility] [place] [facility] [address] [address] [address] Kasia Nath RBC 4.04 106/ul Critically low 4.20-5.40 [facility] Comment on above: Performed By: #### P OCGLUC #### [facility] [place] [facility] [address] [address] [address] Kasia Nath WBC 8.0 103/ul Normal 4.0-11.0 [facility] Comment on above: Performed By: #### P OCGLUC #### [facility] [place] [facility] [address] [address] [address] Kasia Nath GLYCOHEMOGLOBIN A1Con 2022 ADA RECOMMENDATION SEE BELOW Normal [facility] Comment on above: Result Comment: ADA RECOMMENDED LIMIT 4.0 - 6.0 ADA THERAPEUTIC TARGET < 7.0 ACTION SUGGESTED > 7.0 Performed By: #### A 1C ####[facility] [place] [address] [address]Dr. Kasia Nath Glucose [Mass/Vol] 298 mg/dL Normal [facility] Comment on above: Performed By: #### A 1C ####[facility] [place] [address] [address]Dr. Kasia Nath HbA1c (Bld) [Mass fraction] 12.0 % Critically high 4.5-6.2 [facility] Comment on above: Performed By: #### A 1C ####[facility] [place] [address] [address]Dr. Kasia Nath POINT OF CARE GLUCOSEon 12-14 Glucose [Mass/Vol] 227 mg/dL Critically high 74-106 [facility] Comment on above: Performed By: #### C BC #### [facility] [place] [facility] [address] [address] [address] Kasia Nath Glucose [Mass/Vol] 214 mg/dL Critically high 74-106 [facility] Comment on above: Performed By: #### C BC #### [facility] [place] [facility] [address] [address] [address] Kasia Nath PROF 14(COMP METB)on 023 Albumin [Mass/Vol] 2.6 g/dL Critically low 3.4-5.0 [facility] Comment on above: Performed By: #### B SLOT FLOOR ATTENDANT, CMP ####[facility] [place] [address] [address]Dr. Kasia Nath Albumin/Globulin [Mass ratio] 0.6 {ratio} Normal [facility] Comment on above: Performed By: #### B SLOT FLOOR ATTENDANT, CMP ####[facility] [place] [address] [address]Dr. Kasia Nath ALP [Catalytic activity/Vol] 94 U/L Normal 46-116 [facility] Comment on above: Performed By: #### B SLOT FLOOR ATTENDANT, CMP ####[facility] [place] [address] [address]Dr. Kasia Nath ALT [Catalytic activity/Vol] 16 U/L Normal 14-59 [facility] Comment on above: Performed By: #### B SLOT FLOOR ATTENDANT, CMP ####[facility] [place] [address] [address]Dr. Kasia Nath Anion gap [Moles/Vol] 10.6 mmol/L Normal [facility] Comment on above: Performed By: #### B SLOT FLOOR ATTENDANT, CMP ####[facility] [place] [address] [address]Dr. Kasia Nath AST [Catalytic activity/Vol] 15 U/L Normal 15-37 [facility] Comment on above: Performed By: #### B SLOT FLOOR ATTENDANT, CMP ####[facility] [place] [address] [address]Dr. Kasia Nath Bilirubin [Mass/Vol] 0.8 mg/dL Normal 0.2-1.0 [facility] Comment on above: Performed By: #### B SLOT FLOOR ATTENDANT, CMP ####[facility] [place] [address] [address]Dr. Kasia Nath Calcium [Mass/Vol] 8.5 mg/dL Normal 8.5-10.1 [facility] Comment on above: Performed By: #### B SLOT FLOOR ATTENDANT, CMP ####[facility] [place] [address] [address]Dr. Kasia Nath Chloride [Moles/Vol] 102 mmol/L Normal 98-107 [facility] [place] Comment on above: Performed By: #### B SLOT FLOOR ATTENDANT, CMP ####[facility] [place] [address] [address]Dr. Kasia Nath CO2 [Moles/Vol] 30.2 mmol/L Normal 21.0-32.0 [facility] Comment on above: Performed By: #### B SLOT FLOOR ATTENDANT, CMP ####[facility] [place] [address] [address]Dr. Kasia Nath Creatinine [Mass/Vol] 0.94 mg/dL Normal 0.55-1.02 [facility] Comment on above: Performed By: #### B SLOT FLOOR ATTENDANT, CMP ####[facility] [place] [address] [place], [place] [address]Dr. Kasia Nath EGFR-AF CAMEROONIAN >60 Normal >=60 [facility] Comment on above: Performed By: #### B SLOT FLOOR ATTENDANT, CMP ####[facility] [place] [address] [place], [place] [address]Dr. Kasia Nath EGFR-NON AF CAMEROONIAN 58 mL/min/1.73m2 Critically low >=60 [facility] Comment on above: Performed By: #### B SLOT FLOOR ATTENDANT, CMP ####[facility] [place] [address] [place], [place] [address]Dr. Kasia Nath Globulin (S) [Mass/Vol] 4.0 g/dL Normal [facility] Comment on above: Performed By: #### B SLOT FLOOR ATTENDANT, CMP ####[facility] [place] [address] [address]Dr. Kasia Nath Glucose [Mass/Vol] 150 mg/dL Critically high 74-106 [facility] Comment on above: Performed By: #### B SLOT FLOOR ATTENDANT, CMP ####[facility] [place] [address] [place], [place] [address]Dr. Kasia Nath Potassium [Moles/Vol] 3.8 mmol/L Normal 3.5-5.1 [facility] Comment on above: Performed By: #### B SLOT FLOOR ATTENDANT, CMP ####[facility] [place] [address] [address]Dr. Kasia Nath Protein [Mass/Vol] 6.6 g/dL Normal 6.4-8.2 [facility] Comment on above: Performed By: #### B SLOT FLOOR ATTENDANT, CMP ####[facility] [place] [address] [address]Dr. Kasia Nath Sodium [Moles/Vol] 139 mmol/L Normal 136-145 [facility] Comment on above: Performed By: #### B SLOT FLOOR ATTENDANT, CMP ####[facility] [place] [address] [address]Dr. Kasia Nath Urea nitrogen [Mass/Vol] 24.0 mg/dL Critically high 7.0-18.0 [facility] Comment on above: Performed By: #### B SLOT FLOOR ATTENDANT, CMP ####[facility] [place] [address] [address]Dr. Kasia Nath Urea nitrogen/Creatinine [Mass ratio] 25.5 mg/mg Normal [facility] Comment on above: Performed By: #### B SLOT FLOOR ATTENDANT, CMP ####[facility] [place] [address] [address]Dr. Kasia Nath BNPon 01-01-2023 Natriuretic peptide B (Bld) [Mass/Vol] 1419.0 pg/mL Normal <=1,800.0 [facility] Comment on above: Performed By: #### B SLOT FLOOR ATTENDANT #### [facility] [place] [facility] [address] [address] [address] Kasia Nath CARDIAC EMERY 3-6on 3 CK [Catalytic activity/Vol] 80 U/L Normal 26-192 [facility] [place] Comment on above: Performed By: #### P OCGLUC #### [facility] [place] [facility] [address] [address] [address] Kasia Nath CK.MB [Mass/Vol] 1.85 ng/mL Normal <=3.60 [facility] Comment on above: Performed By: #### P OCGLUC #### [facility] [place] [facility] [address] [address] [address] Kasia Nath HSTROP 13.2 pg/mL Normal 4.0-51.3 [facility] [place] Comment on above: Result Comment: CUT- OFF POINTS HAVE BEEN ESTABLISHED BASED ON THE FOURTH UNIVERSAL DEFINITIONS OF MYOCARDIAL INFARCTION. THE UPPER REFERENCE LIMIT (URL) OF TROPONIN, DEFINED THE 99TH PERCENTILE OF cTnI DISTRIBUTION IN A REFERENCE POPULATION, HAS BEEN CONFIRMED THE DECISION THRESHOLD FOR UT DIAGNOSIS. Performed By: #### P OCGLUC #### [facility] [place] [facility] [address] [place] [address] Dr. Kasia Nath CK [Catalytic activity/Vol] 73 U/L Normal 26-192 [facility] Comment on above: Performed By: #### P OCGLUC #### [facility] [place] [facility] [address] [place] [address] Dr. Kasia Nath CK.MB [Mass/Vol] 1.71 ng/mL Normal <=3.60 [facility] Comment on above: Performed By: #### P OCGLUC #### [facility] [place] [facility] [address] [place] [address] Dr. Kasia Nath HSTROP 13.6 pg/mL Normal 4.0-51.3 [facility] [place] Comment on above: Result Comment: CUT- OFF POINTS HAVE BEEN ESTABLISHED BASED ON THE FOURTH UNIVERSAL DEFINITIONS OF MYOCARDIAL INFARCTION. THE UPPER REFERENCE LIMIT (URL) OF TROPONIN, DEFINED THE 99TH PERCENTILE OF cTnI DISTRIBUTION IN A REFERENCE POPULATION, HAS BEEN CONFIRMED THE DECISION THRESHOLD FOR UT DIAGNOSIS. Performed By: #### P OCGLUC #### [facility] [place] [facility] [address] [place] [address] Dr. Kasia Nath CARDIAC EMERY ADMITon 023 CK [Catalytic activity/Vol] 71 U/L Normal 26-192 [facility] Comment on above: Performed By: #### C BC #### [facility] [place] [facility] [address] [place] [address] Dr. Kasia Nath CK.MB [Mass/Vol] 1.69 ng/mL Normal <=3.60 [facility] Comment on above: Performed By: #### C BC #### [facility] [place] [facility] [address] [place] [address] Dr. Kasia Nath HSTROP 13.0 pg/mL Normal 4.0-51.3 [facility] Comment on above: Result Comment: CUT- OFF POINTS HAVE BEEN ESTABLISHED BASED ON THE FOURTH UNIVERSAL DEFINITIONS OF MYOCARDIAL INFARCTION. THE UPPER REFERENCE LIMIT (URL) OF TROPONIN, DEFINED THE 99TH PERCENTILE OF cTnI DISTRIBUTION IN A REFERENCE POPULATION, HAS BEEN CONFIRMED THE DECISION THRESHOLD FOR UT DIAGNOSIS. Performed By: #### C BC #### [facility] [place] [facility] [address] [place] [address] Dr. Kasia Nath GRETTA 75 ng/mL Normal 9-82 [facility] Comment on above: Performed By: #### C BC #### [facility] [place] [facility] [address] [place] [address] Dr. Kasia Nath CBC AUTO DIFFon 01-01-2023 BASO # 0.1 103/ul Normal 0.0-0.1 [facility] Comment on above: Performed By: #### C BC #### [facility] [place] [facility] [address] [place] [address] Dr. Kasia Nath Basophils/100 WBC (Bld) 1.1 % Normal 0.2-2.0 [facility] Comment on above: Performed By: #### C BC #### [facility] [place] [facility] [address] [place] [address] Dr. Kasia Nath EO # 0.2 103/ul Normal 0.0-0.7 [facility] Comment on above: Performed By: #### C BC #### [facility] [place] [facility] [address] [place] [address] Dr. Kasia Nath Eosinophils/100 WBC (Bld) 2.9 % Normal 0.9-7.0 [facility] Comment on above: Performed By: #### C BC #### [facility] [place] [facility] [address] [place] [address] Dr. Kasia Nath Erythrocyte distribution width (RBC) [Ratio] 13.8 % Normal 11.0-15.0 [facility] Comment on above: Performed By: #### C BC #### [facility] [place] [facility] [address] [place] [address] Dr. Kasia Nath Hematocrit (Bld) [Volume fraction] 36.2 % Normal 36.0-48.0 [facility] Comment on above: Performed By: #### C BC #### [facility] [place] [facility] [address] [address] [address] Kasia Nath Hemoglobin (Bld) [Mass/Vol] 12.1 g/dL Normal 12.0-16.0 [facility] Comment on above: Performed By: #### C BC #### [facility] [place] [facility] [address] [address] [address] Kasia Nath IG # 0.02 10e3/ul Normal 0.00-0.03 [facility] Comment on above: Performed By: #### C BC #### [facility] [place] [facility] [address] [place] [address] Dr. Kasia Nath IG % 0.3 % Normal 0.0-0.5 [facility] Comment on above: Performed By: #### C BC #### [facility] [place] [facility] [address] [place] [address] Dr. Kasia Nath LYMPH # 1.5 103/ul Normal 1.2-3.8 [facility] Comment on above: Performed By: #### C BC #### [facility] [place] [facility] [address] [place] [address] Dr. Kasia Nath Lymphocytes/100 WBC (Bld) 19.9 % Critically low 20.5-60.0 [facility] Comment on above: Performed By: #### C BC #### [facility] [place] [facility] [address] [place] [address] Dr. Kasia Nath MANUAL DIFF REQ NO Normal [facility] Comment on above: Performed By: #### C BC #### [facility] [place] [facility] [address] [place] [address] Dr. Kasia Nath MCH (RBC) [Entitic mass] 29.7 pg Normal 26.7-34.0 [facility] Comment on above: Performed By: #### C BC #### [facility] [place] [facility] [address] [place] [address] Dr. Kasia Nath MCHC (RBC) [Mass/Vol] 33.4 g/dL Normal 29.9-35.2 [facility] Comment on above: Performed By: #### C BC #### [facility] [place] [facility] [address] [address] [address] Kasia Nath MCV (RBC) [Entitic vol] 88.9 fL Normal 81.0-99.0 [facility] Comment on above: Performed By: #### C BC #### [facility] [place] [facility] [address] [address] [address] Kasia Nath MONO # 0.6 103/ul Normal 0.3-0.8 [facility] Comment on above: Performed By: #### C BC #### [facility] [place] [facility] [address] [address] [address] Kasia Nath Monocytes/100 WBC (Bld) 8.0 % Normal 1.7-12.0 [facility] Comment on above: Performed By: #### C BC #### [facility] [place] [facility] [address] [place] [address] Dr. Kasia Nath NEUT # 5.1 103/ul Normal 1.4-6.5 [facility] Comment on above: Performed By: #### C BC #### [facility] [place] [facility] [address] [place] [address] Dr. Kasia Nath Neutrophils/100 WBC (Bld) 67.8 % Normal 43.0-75.0 [facility] Comment on above: Performed By: #### C BC #### [facility] [place] [facility] [address] [place] [address] Dr. Kasia Nath Platelet mean volume (Bld) [Entitic vol] 10.4 fL Normal 9.5-13.5 [facility] Comment on above: Performed By: #### C BC #### [facility] [place] [facility] [address] [place] [address] Dr. Kasia Nath PLT 200 103/ul Normal 150-450 [facility] [place] Comment on above: Performed By: #### C BC #### [facility] [place] [facility] [address] [address] [address] Kasia Nath RBC 4.07 106/ul Critically low 4.20-5.40 [facility] Comment on above: Performed By: #### C BC #### [facility] [place] [facility] [address] [place], [place] [address] Dr. Kasia Nath WBC 7.5 103/ul Normal 4.0-11.0 [facility] [place] Comment on above: Performed By: #### C #### [facility] [place] [facility] [address] [place], [place] [address] CHEST WO CONon [...] two extremes (Agatston score 101-1000). https://pubs.rsna.org /doi/abs/10.1148/radi [email or web address] Electronically authenticated by: RENETTA MICHAELS Date: 2023-01-01 14:55 Normal [facility] [place] Covid-19 PCR (CVDTBH)on 12-14 SARS-CoV-2 (COVID-19) RNA FERN+probe Ql (Unsp spec) Not detected Normal NOT DETECTED [facility] [place] Comment on above: Result Comment: When diagnostic [...] for this test is supported by the Vice President [employer] of Health and Human Service's declaration that [...] longer be used). Performed By: #### C ON LICENSE OF [facility] #### [facility] [place] [facility] [address] [place] [address] Dr. Kasia Nath ECHO LIMITED STUDYon 023 ECHO LIMITED STUDY Patient: SAIMA CALL Exam Date: 01/01/2023 : 1945 Gender:F Ordering : LD GUERRERO . Admission #: [id number] Family : Order #: [id number] CLICK HERE TO VIEW EXAM ECHOCARDIOGRAM REPORT [...] Pulmonic Valve Right Atrium Dictated by: Rica Kaplan M.D. on 01/01/2023 at 13:15 Approved by: Rica Kaplan M.D. on 01/01/2023 at 13:19 Normal [facility] GLYCOHEMOGLOBIN A1Con 2022 ADA RECOMMENDATION SEE BELOW Normal [facility] Comment on above: Result Comment: ADA RECOMMENDED LIMIT 4.0 - 6.0 ADA THERAPEUTIC TARGET < 7.0 ACTION SUGGESTED > 7.0 Performed By: #### P OCGLUC #### [facility] [place] [facility] [address] [address] [address] Kasia Nath Glucose [Mass/Vol] 318 mg/dL Normal [facility] Comment on above: Performed By: #### P OCGLUC #### [facility] [place] [facility] [address] [address] [address] Kasia Nath HbA1c (Bld) [Mass fraction] 12.7 % Critically high 4.5-6.2 [facility] Comment on above: Performed By: #### P OCGLUC #### [facility] [place] [facility] [address] [address] [address] Kasia Nath POINT OF CARE GLUCOSEon 12-14 Glucose [Mass/Vol] 162 mg/dL Critically high 74-106 T [facility] Comment on above: Performed By: #### P OCGLUC ####[facility] [place] [id number] [address]Dr. Kasia Nath Glucose [Mass/Vol] 213 mg/dL Critically high 74-106 [facility] Comment on above: Performed By: #### P OCGLUC ####[facility] [place] [id number] [place], [place] [address]NvDr. Kasia Nath Glucose [Mass/Vol] 248 mg/dL Critically high 74-106 [facility] Comment on above: Performed By: #### P OCGLUC #### [facility] [place] [facility] [address] [address] [address] Kasia Nath PROF CHEM 8 (BAS METB)on Anion gap [Moles/Vol] 11.8 mmol/L Normal [facility] Comment on above: Performed By: #### C BC #### [facility] [place] [facility] [address] [address] [address] Kasia Nath Calcium [Mass/Vol] 8.4 mg/dL Critically low 8.5-10.1 [facility] Comment on above: Performed By: #### C BC #### [facility] [place] [facility] [address] [address] [address] Kasia Nath Chloride [Moles/Vol] 102 mmol/L Normal 98-107 [facility] Comment on above: Performed By: #### C BC #### [facility] [place] [facility] [address] [address] [address] Kasia Nath CO2 [Moles/Vol] 28.4 mmol/L Normal 21.0-32.0 [facility] Comment on above: Performed By: #### C BC #### [facility] [place] [facility] [address] [address] [address] Kasia Nath Creatinine [Mass/Vol] 1.09 mg/dL Critically high 0.55-1.02 [facility] Comment on above: Performed By: #### C BC #### [facility] [place] [facility] [address] [address] [address] Kasia Nath EGFR-AF CAMEROONIAN 59 mL/min/1.73m2 Critically low >=60 [facility] Comment on above: Performed By: #### C BC #### [facility] [place] [facility] [address] [address] [address] Kasia Nath EGFR-NON AF CAMEROONIAN 49 mL/min/1.73m2 Critically low >=60 [facility] Comment on above: Performed By: #### C BC #### [facility] [place] [facility] [address] [address] [address] Kasia Nath Glucose [Mass/Vol] 247 mg/dL Critically high 74-106 T [facility] Comment on above: Performed By: #### C BC #### [facility] [place] [facility] [address] [address] [address] Kasia Nath Potassium [Moles/Vol] 4.2 mmol/L Normal 3.5-5.1 [facility] Comment on above: Performed By: #### C BC #### [facility] [place] [facility] [address] [address] [address] Kasia Nath Sodium [Moles/Vol] 138 mmol/L Normal 136-145 [facility] Comment on above: Performed By: #### C BC #### [facility] [place] [facility] [address] [address] [address] Kasia Nath Urea nitrogen [Mass/Vol] 28.0 mg/dL Critically high 7.0-18.0 [facility] Comment on above: Performed By: #### C BC #### [facility] [place] [facility] [id number] Kasia Nath Urea nitrogen/Creatinine [Mass ratio] 25.7 mg/mg Normal [facility] Comment on above: Performed By: #### C BC #### [facility] [place] [facility] [id number] Kasia Nath XR CHEST 1 Von [...] by: Miranda ALVAREZ Date: 2023-01-01 05:38 Normal [facility] ECHOCARDIO M/2D COMPLETEon 1 11-15-2021 ECHOCARDIO M/2D COMPLETE Patient: JOE CALL Exam Date: 09/15/2022 : 1945 Gender:F Ordering : YAMEL MCCRACKEN [facility] Admission #: [id number] Family : DR SHANTEL STEVEN M.D. Order #: [id number] CLICK HERE TO VIEW EXAM ECHOCARDIOGRAM REPORT [...] 58.89 ml, 58.89 ml Dictated by: Rica Kaplan M.D. on 09/15/2022 at 18:09 Approved by: Rica Kaplan M.D. on 09/15/2022 at 18:17 Normal [facility] [place] GI PANEL (PCR)on 05-02-2022 Adenovirus F 40/41 Not detected Normal NOT DETECTED [facility] Comment on above: Performed By: #### P OCGLUC #### [facility] [place] [facility] [address] [place] [address] Dr. Kasia Nath Astrovirus Not detected Normal NOT DETECTED [facility] Comment on above: Performed By: #### P OCGLUC #### [facility] [place] [facility] [address] [place] [address] Dr. Kasia Nath C. Diff toxin A/B Not detected Normal NOT DETECTED [facility] [place] Comment on above: Performed By: #### P OCGLUC #### [facility] [place] [facility] [address] [place] [address] Dr. Kasia Nath Campylobacter Not detected Normal NOT DETECTED The [facility] Comment on above: Performed By: #### P OCGLUC #### [facility] [place] [facility] [address] [place] [address] Dr. Kasia Nath Cryptosporidium Not detected Normal NOT DETECTED The [facility] Comment on above: Performed By: #### P OCGLUC #### [facility] [place] [facility] [address] [place] [address] Dr. Kasia Nath Cyclos. Cayetanensis Not detected Normal NOT DETECTED [facility] [place] Comment on above: Performed By: #### P OCGLUC #### [facility] [place] [facility] [address] [place] [address] Dr. Kasia Nath E. Coli O157 Not Applicable Normal Not Applicable [facility] [place] Comment on above: Performed By: #### P OCGLUC #### [facility] [place] [facility] [address] [place] [address] Dr. Kasia Nath E. histolytica Not detected Normal NOT DETECTED The [facility] Comment on above: Performed By: #### P OCGLUC #### [facility] [place] [facility] [address] [place] [address] Dr. Kasia Nath EAEC Not detected Normal NOT DETECTED [facility] Comment on above: Performed By: #### P OCGLUC #### [facility] [place] [facility] [address] [place] [address] Dr. Kasia Nath EIEC Not detected Normal NOT DETECTED [facility] Comment on above: Performed By: #### P OCGLUC #### [facility] [place] [facility] [address] [place] [address] Dr. Kasia Nath EPEC Detected Abnormal NOT DETECTED [facility] [place] Comment on above: Performed By: #### P OCGLUC #### [facility] [place] [facility] [address] [address] [address] Kasia Nath ETEC Not detected Normal NOT DETECTED [facility] Comment on above: Performed By: #### P OCGLUC #### [facility] [place] [facility] [address] [address] [address] Kasia Cramer. Lamblia Not detected Normal NOT DETECTED [facility] Comment on above: Performed By: #### P OCGLUC #### [facility] [place] [facility] [address] [address] [address] Kasia KHAN CONTROLS PASSED Normal The [facility] Comment on above: Performed By: #### P OCGLUC #### [facility] [place] [facility] [address] [address] [address] Kasia FRAIRE HEADER GI PANEL BACTERIA Normal T [facility] Comment on above: Performed By: #### P OCGLUC #### [facility] [place] [facility] [address] [address] [address] Kasia GE ECOLI GI PANEL DIARRHEAGENIC E.COLI / SHIGELLA Normal [facility] Comment on above: Performed By: #### P OCGLUC #### [facility] [place] [facility] [address] [address] [address] Kasia GE INFO SEE BELOW Normal [facility] Comment on above: Result Comment: EAEC - Enteroaggregative E. Coli EPEC- Enteropathogenic E. Coli ETEC- Enterotoxigenic E. Coli lt/st STEC- Shigella-like toxin-producing E. Coli stx1/stx2 EIEC- Shigella/Enteroinvasive E. Coli Performed By: #### P OCGLUC #### [facility] [place] [facility] [address] [address] [address] Kasia GE PARASITES GI PANEL PARASITES Normal [facility] [place] Comment on above: Performed By: #### P OCGLUC #### [facility] [place] [facility] [address] [address] [address] Kasia GE VIRUS GI PANEL VIRUSES Normal [facility] Comment on above: Performed By: #### P OCGLUC #### [facility] [place] [facility] [address] [place] [address] Dr. Kasia Nath Norovirus GI/GII Not detected Normal NOT DETECTED [facility] [place] Comment on above: Performed By: #### P OCGLUC #### [facility] [place] [facility] [address] [place] [address] Dr. Kasia Garland. Shigelloides Not detected Normal NOT DETECTED [facility] Comment on above: Performed By: #### P OCGLUC #### [facility] [place] [facility] [address] [place] [address] Dr. Kasia Nath Rotavirus A Not detected Normal NOT DETECTED The [facility] Comment on above: Performed By: #### P OCGLUC #### [facility] [place] [facility] [address] [place] [address] Dr. Kasia Nath Salmonella Not detected Normal NOT DETECTED [facility] Comment on above: Performed By: #### P OCGLUC #### [facility] [place] [facility] [address] [place] [address] Dr. Kasia Nath Sapovirus Not detected Normal NOT DETECTED [facility] Comment on above: Performed By: #### P OCGLUC #### [facility] [place] [facility] [address] [place] [address] Dr. Kasia Nath STEC Not detected Normal NOT DETECTED [facility] Comment on above: Performed By: #### P OCGLUC #### [facility] [place] [facility] [address] [place] [address] Dr. Kasia Nath Vibrio Not detected Normal NOT DETECTED [facility] Comment on above: Performed By: #### P OCGLUC #### [facility] [place] [facility] [address] [place] [address] Dr. Kasia Nath Vibrio Cholera Not detected Normal NOT DETECTED [facility] Comment on above: Performed By: #### P OCGLUC #### [facility] [place] [facility] [address] [place] [address] Dr. Kasia Nath Y. Enterocolitica Not detected Normal NOT DETECTED [facility] [place] Comment on above: Performed By: #### P OCGLUC #### [facility] [place] [facility] [address] [place] [address] Dr. Kasia Nath [facility] BLD IMMUNO SCREENon 06-2 1-2022 OCCULT BLOOD Negative Normal NEGATIVE [facility] [place] Comment on above: Performed By: #### C #### [facility] [place] [facility] [address] [address] [address] Kasia Nath XR knee BI 4Von 08-25-2021 XR knee BI 4V [facility] [employer] Other XR knee BI 4V [facility] [employer] Other XR knee BI 4V [address] [place] [address] [employer] Other XR knee BI 4V [address] [employer] Other XR knee BI 4V XRay Report [facility] [employer] Other XR knee BI 4V Signed [employer] Other XR knee BI 4V Patient: Joe Call MR#: [id number] [place] [employer] Other XR knee BI 4V 0 [employer] Other XR knee BI 4V : 1945 Acct:[id number] [employer] Other XR knee BI 4V Age/Sex: 76 / F ADM Date: 08/25/21 [employer] Other XR knee BI 4V Loc: SOXD Room: Type : [facility] CLI [employer] Other XR knee BI 4V Attending Dr: Akbar Cui II, MD [employer] Other XR knee BI 4V Ordering Provider: Akbar Cui MD [employer] Other XR knee BI 4V Date of Service: 08/25/21 [employer] Other XR knee BI 4V XR/XR knee BI 4V: Pain in right knee;Pain in left knee [employer] Other XR knee BI 4V Copies to: Akbar Cui MD [employer] Other XR knee BI 4V XR knee BI 4V 08/25/2021 1:32 PM [employer] Other XR knee BI 4V SIGNS AND SYMPTOMS: Bilateral knee pain with decreased range of motion, weakness [employer] Other XR knee BI 4V PROTOCOL: Frontal, lateral, and sunrise views of the bilateral knees [employer] Other XR knee BI 4V COMPARISON: None [employer] Other XR knee BI 4V FINDINGS: [employer] Other XR knee BI 4V There is mild narrowing of the medial weightbearing joint spaces. There is mild patellofemoral [employer] Other XR knee BI 4V joint space loss. There is spurring of the poles of the patella bilaterally. There is mild lateral [employer] Other XR knee BI 4V patellar subluxation bilaterally. There is no evidence of acute displaced fracture. Well-corticated [employer] Other XR knee BI 4V ossific structures o r separate from the right medial weightbearing joint space. This may represent a [employer] Other XR knee BI 4V calcified loose bodies. [employer] Other XR knee BI 4V XR/XR knee BI 4V [employer] Other XR knee BI 4V IMPRESSION: [employer] Other XR knee BI 4V Degenerative changes are noted are noted bilaterally, as above. [employer] Other XR knee BI 4V Well-corticated ossific structures or separate from the right medial weightbearing joint space. This [employer] Other XR knee BI 4V may represent a calcified loose bodies. [employer] Other XR knee BI 4V No acute displaced fracture. [employer] Other XR knee BI 4V There is mild latera l subluxation of the patella within the patellofemoral joint space bilaterally. [employer] Other XR knee BI 4V Impression dictated by: Emery Lobo M.D.08/25/2021 2:51 PM [employer] Other XR knee BI 4V Dictation Location: [place] [address] [employer] Other XR knee BI 4V Transcribed By: PWS 08/25/21 [facility] [employer] Other XR knee BI 4V Dictated By: Emery Lobo II, MD 08/25/21 [facility] [employer] Other XR knee BI 4V Signed By: [employer] Other XR knee BI 4V 08/25/21 [facility] [employer] Other XR pelvis 1-2Von 08-25-2021 XR pelvis 1-2V XR/XR pelvis 1-2V: Pain in right knee;Pain in left knee [employer] Other XR pelvis 1-2V XR pelvis 1-2V 08/25/2021 1:32 PM [employer] Other XR pelvis 1-2V SIGNS AND SYMPTOMS: Bilateral generalized knee pain, limited range of motion with weakness [employer] Other XR pelvis 1-2V PROTOCOL: Frontal radiograph of the pelvis [employer] Other XR pelvis 1-2V There is mild narrowing of the weightbearing joint spaces. Mild degenerative changes are noted in [employer] Other XR pelvis 1-2V the symphysis pubis. There is no evidence of fracture or dislocation. Vascular calcifications are [employer] Other XR pelvis 1-2V present in the pelvis. [employer] Other XR pelvis 1-2V XR/XR pelvis 1-2V [employer] Other XR pelvis 1-2V No fracture or dislocation. [employer] Other XR pelvis 1-2V Mild degenerative changes are noted in the joint space of the hips. [employer] Other XR pelvis 1-2V Impression dictated by: Emery Lobo M.D.08/25/2021 2:54 PM [employer] Other XR pelvis 1-2V Transcribed By: [facility] 08/25/21 [facility] [employer] Other XR pelvis 1-2V Dictated By: Emery Lobo II, MD 08/25/21 [facility] [employer] Other XR pelvis 1-2V 08/25/21 [facility] [employer] Other Vital Signs Date Time Vital Sign Value Performing Clinician Facility 05-22-2024 09:18-0400 Heart rate 55 /min MD Shantel Steven Work Phone: [facility] 05-22-2024 09:09-0400 Body temperature 97.8 [degF] MD Shantel Steven Work Phone: [facility] 05-22-2024 09:09-0400 Diastolic blood pressure 64 mm[Hg] MD Shantel Steven Work Phone: [facility] 05-22-2024 09:09-0400 Respiratory rate 22 /min MD Shantel Steven Work Phone: [facility] 05-22-2024 09:09-0400 SaO2% (BldA) [Mass fraction] 94 % MD Shantel Steven Work Phone: [facility] 05-22-2024 09:09-0400 Systolic blood pressure 140 mm[Hg] MD Shantel Steven Work Phone: [facility] 05-22-2024 09:08-0400 Body height 165.1 cm MD Shantel Steven Work Phone: [facility] 05-22-2024 09:08-0400 Body weight 117.48 kg MD Shantel Steven Work Phone: [facility] 05-19-2024 14:16-0400 Body height 165.1 cm MD Shantel Steven Work Phone: [facility] 05-19-2024 14:16-0400 Body mass index (BMI) [Ratio] 43.1 kg/m2 MD Shantel Steven Work Phone: [facility] 05-19-2024 14:16-0400 Body weight 117.48 kg MD Shantel Steven Work Phone: [facility] 05-19-2024 14:16-0400 Diastolic blood pressure 72 mm[Hg] MD Shantel Steven Work Phone: [facility] 05-19-2024 14:16-0400 Heart rate 56 /min MD Shantel Steven Work Phone: [facility] 05-19-2024 14:16-0400 Systolic blood pressure 133 mm[Hg] MD Sahntel Steven Work Phone: [facility] 05-07-2024 11:52-0400 Body height 165.1 cm MD Shantel Steven Work Phone: [facility] 05-07-2024 11:52-0400 Body mass index (BMI) [Ratio] 41.5 kg/m2 MD Shantel Steven Work Phone: [facility] 05-07-2024 11:52-0400 Body temperature 98.5 [degF] MD Shantel Steven Work Phone: [facility] 05-07-2024 11:52-0400 Body weight 113.39 kg MD Shantel Steven Work Phone: [facility] 05-07-2024 11:52-0400 Diastolic blood pressure 81 mm[Hg] MD Shantel Steven Work Phone: [facility] 05-07-2024 11:52-0400 Heart rate 91 /min MD Shantel Steven Work Phone: [facility] 05-07-2024 11:52-0400 Systolic blood pressure 141 mm[Hg] MD Shantel Steven Work Phone: [facility] 04-29-2024 12:54-0400 Body height 165.1 cm MD Shantel Steven Work Phone: [facility] 04-29-2024 12:54-0400 Body mass index (BMI) [Ratio] 41.5 kg/m2 MD Shantel Steven Work Phone: [facility] 04-29-2024 12:54-0400 Body weight 113.39 kg MD Shantel Steven Work Phone: [facility] 04-29-2024 12:54-0400 Diastolic blood pressure 58 mm[Hg] MD Shantel Steven Work Phone: [facility] 04-29-2024 12:54-0400 Heart rate 54 /min MD Shantel Steven Work Phone: [facility] 04-29-2024 12:54-0400 Systolic blood pressure 90 mm[Hg] MD Shantel Steven Work Phone: [facility] 04-03-2024 11:29-0400 Body height 165.1 cm MD Shantel Steven Work Phone: [facility] 04-03-2024 11:29-0400 Body mass index (BMI) [Ratio] 43.7 kg/m2 MD Shantel Steven Work Phone: [facility] 04-03-2024 11:29-0400 Body weight 119.29 kg MD Shantel Steven Work Phone: [facility] 04-03-2024 11:29-0400 Diastolic blood pressure 71 mm[Hg] MD Shantel Steven Work Phone: [facility] 04-03-2024 11:29-0400 Heart rate 56 /min MD Shantel Steven Work Phone: [facility] 04-03-2024 11:29-0400 Systolic blood pressure 116 mm[Hg] MD Shantel Steven Work Phone: [facility] 03-25-2024 15:15-0400 Body height 165.1 cm MD Shantel Steven Work Phone: [facility] 03-25-2024 15:15-0400 Body mass index (BMI) [Ratio] 43.9 kg/m2 MD Shantel Steven Work Phone: [facility] 03-25-2024 15:15-0400 Body weight 119.74 kg MD Shantel Steven Work Phone: [facility] 03-25-2024 15:15-0400 Diastolic blood pressure 87 mm[Hg] MD Shantel Steven Work Phone: [facility] 03-25-2024 15:15-0400 Heart rate 66 /min MD Shantel Steven Work Phone: [facility] 03-25-2024 15:15-0400 Systolic blood pressure 125 mm[Hg] MD Shantel Steven Work Phone: [facility] 02-15-2024 14:18-0400 Body height 165.1 cm [facility] 02-15-2024 14:18-0400 Body mass index (BMI) [Ratio] 38.6 kg/m2 [facility] 02-15-2024 14:18-0400 Body weight 105.23 kg [facility] 02-15-2024 14:18-0400 Diastolic blood pressure 66 mm[Hg] [facility] 02-15-2024 14:18-0400 Heart rate 55 /min [facility] 02-15-2024 14:18-0400 Systolic blood pressure 114 mm[Hg] [facility] 01-18-2024 10:23-0500 Body height 165.1 cm [facility] 01-18-2024 10:23-0500 Body mass index (BMI) [Ratio] 43.2 kg/m2 [facility] 01-18-2024 10:23-0500 Body weight 117.93 kg [facility] 01-18-2024 10:23-0500 Diastolic blood pressure 70 mm[Hg] [facility] 01-18-2024 10:23-0500 Heart rate 98 /min [facility] 01-18-2024 10:23-0500 SaO2% (BldA) [Mass fraction] 65 % [facility] 01-18-2024 10:23-0500 Systolic blood pressure 110 mm[Hg] [facility] 10-23-2023 16:00-0500 Body height 165.1 cm Azghassan Kochs Other [employer] [facility] [employer] Other 10-23-2023 16:00-0500 Body mass index (BMI) [Ratio] 44.63 kg/m2 Azghassan Hookerhous Other [employer] Other 10-23-2023 16:00-0500 Body temperature 96.8 [degF] Aziz Bakhous Other [employer] Other 10-23-2023 16:00-0500 Body weight 121.66 kg Azghassan Bakhous Other [employer] Other 10-23-2023 16:00-0500 Diastolic blood pressure 60 mm[Hg] Aziz Bakhous Other [employer] Other 10-23-2023 16:00-0500 Respiratory rate 18 /min Aziz Bakhous Other [employer] Other 10-23-2023 16:00-0500 SaO2% (BldA) [Mass fraction] 99 % Aziz Bakhous Other [employer] Other 10-23-2023 16:00-0500 Systolic blood pressure 124 mm[Hg] Jaleesa Vanessa Other [employer] Other 10-18-2023 13:45-0500 Body height 165.1 cm Shantel Steven Other [employer] Other 10-18-2023 13:45-0500 Body mass index (BMI) [Ratio] 44.86 kg/m2 Shantel Steven Other [employer] Other 10-18-2023 13:45-0500 Body temperature 97.3 [degF] Shantel Steven Other [employer] Other 10-18-2023 13:45-0500 Body weight 122.29 kg Shantel Steven Other [employer] Other 10-18-2023 13:45-0500 Diastolic blood pressure 84 mm[Hg] Shantel Steven Other [employer] Other 10-18-2023 13:45-0500 SaO2% (BldA) [Mass fraction] 97 % Shantel Steven Other [employer] Other 10-18-2023 13:45-0500 Systolic blood pressure 132 mm[Hg] Shantel Steven Other [employer] Other 09-04-2023 14:00-0400 Body height 165.1 cm Shantel Steven Other [employer] Other 09-04-2023 14:00-0400 Body mass index (BMI) [Ratio] 43.06 kg/m2 Shantel Steven Other [employer] Other 09-04-2023 14:00-0400 Body weight 117.39 kg Shantel Steven Other [employer] Other 09-04-2023 14:00-0400 Diastolic blood pressure 69 mm[Hg] Shantel Steven Other [employer] Other 09-04-2023 14:00-0400 Systolic blood pressure 127 mm[Hg] Shantel Steven Other [employer] Other 07-17-2023 10:00-0400 Body height 165.1 cm Shantel Steven Other [employer] Other 07-17-2023 10:00-0400 Body mass index (BMI) [Ratio] 43.03 kg/m2 Shantel Steven Other [employer] Other 07-17-2023 10:00-0400 Body weight 117.3 kg Shantel Steven Other [employer] Other 07-17-2023 10:00-0400 Diastolic blood pressure 76 mm[Hg] Shantel Steven Other [employer] Other 07-17-2023 10:00-0400 Systolic blood pressure 164 mm[Hg] Shantel Steven Other [employer] Other 04-30-2023 14:30-0400 Body height 165.1 cm Shantel Steven Other [employer] Other 04-30-2023 14:30-0400 Body mass index (BMI) [Ratio] 43.43 kg/m2 Shantel Steven Other [employer] Other 04-30-2023 14:30-0400 Body weight 118.39 kg Shantel Steven Other [employer] Other 04-30-2023 14:30-0400 Diastolic blood pressure 75 mm[Hg] Shantel Steven Other [employer] Other 04-30-2023 14:30-0400 Systolic blood pressure 135 mm[Hg] Shantel Steven Other [employer] Other 03-09-2023 12:15-0400 Body height 165.1 cm Shantel Steven Other [employer] Other 03-09-2023 12:15-0400 Body mass index (BMI) [Ratio] 43.59 kg/m2 Shantel Steven Other [facility] Other 03-09-2023 12:15-0400 Body weight 118.84 kg Shantel Steven Other [facility] Other 03-09-2023 12:15-0400 Diastolic blood pressure 82 mm[Hg] Shantel Steven Other [facility] Other 03-09-2023 12:15-0400 SaO2% (BldA) [Mass fraction] 97 % Shantel Steven Other [facility] Other 03-09-2023 12:15-0400 Systolic blood pressure 130 mm[Hg] Shantel Steven Other [facility] Other 02-20-2023 10:00-0400 Body height 165.1 cm Shantel Steven Other [facility] Other 02-20-2023 10:00-0400 Body mass index (BMI) [Ratio] 41.93 kg/m2 Shantel Steven Other [facility] Other 02-20-2023 10:00-0400 Body weight 114.31 kg Shantel Steven Other [facility] Other 02-20-2023 10:00-0400 Diastolic blood pressure 84 mm[Hg] Shantel Steven Other [facility] Other 02-20-2023 10:00-0400 Systolic blood pressure 132 mm[Hg] Shantel Steven Other [facility] Other 08-04-2022 13:33-0400 Blood Pressure Location [facility] [place] 08-04-2022 13:33-0400 Diastolic blood pressure 88 mm[Hg] [employer] [facility] [place] 08-04-2022 13:33-0400 Heart rate 76 /min Bin NILL [facility] [place] 08-04-2022 13:33-0400 Respiratory rate 16 /min [employer] [facility] [place] 08-04-2022 13:33-0400 Systolic blood pressure 130 mm[Hg] Bin NILL [facility] [place] 08-25-2021 14:30-0400 Body height 165.1 cm Akbar Cui II Other [facility] Other 08-25-2021 14:30-0400 Body mass index (BMI) [Ratio] 43.26 kg/m2 Akbar Cui II Other [facility] Other 08-25-2021 14:30-0400 Body weight 117.94 kg Akbar Cui II Other [facility] Other Encounters Encounter Date Encounter Type Care Provider Facility Start: 05-22-2024 End: 05-22-2024 Emergency department patient visit MD Shantel Steven Work Phone: [facility] Work Phone: Start: 05-20-2024 Non-patient / Non-visit MD Alessia Steven Work Phone: [facility] Work Phone: Start: 05-19-2024 End: 05-19-2024 ambulatory MD Shantel Steven Work Phone: [facility] Work Phone: Start: 05-19-2024 End: 05-19-2024 Patient encounter procedure MD Shantel Steven Work Phone: [facility] Work Phone: Start: 05-07-2024 End: 05-07-2024 ambulatory MD Shantel Steven Work Phone: [facility] Work Phone: Start: 05-07-2024 End: 05-07-2024 Patient encounter procedure MD Shantel Steven Work Phone: [facility] Work Phone: Start: 05-06-2024 Non-patient / Non-visit MD Alessia Steven Work Phone: [facility] Work Phone: Start: 05-05-2024 Non-patient / Non-visit MD Alessia Steven Work Phone: [facility] Work Phone: Start: 05-04-2024 Non-patient / Non-visit MD Alessia Steven Work Phone: [facility] Work Phone: Start: 05-02-2024 Non-patient / Non-visit MD Alessia Steven Work Phone: [facility] Work Phone: Start: 05-01-2024 Non-patient / Non-visit MD Alessia Steven Work Phone: [facility] Work Phone: Start: 04-30-2024 Non-patient / Non-visit MD Alessia Steven Work Phone: [facility] Work Phone: Start: 04-29-2024 End: 04-29-2024 Patient encounter procedure MD Shantel Steven Work Phone: [facility] Work Phone: Start: 04-03-2024 End: 04-03-2024 ambulatory MD Shantel Steven Work Phone: [facility] Work Phone: Start: 04-03-2024 End: 04-03-2024 Patient encounter procedure MD Shantel Steven Work Phone: [facility] Work Phone: Start: 04-01-2024 Non-patient / Non-visit MD Alessia Steven Work Phone: [facility] Work Phone: Start: 03-31-2024 Non-patient / Non-visit MD Alessia Steven Work Phone: [facility] Work Phone: Start: 03-28-2024 Non-patient / Non-visit MD Alessia Steven Work Phone: [facility] Work Phone: Start: 03-27-2024 Non-patient / Non-visit MD Alessia Steven Work Phone: [facility] Work Phone: Start: 03-26-2024 Non-patient / Non-visit MD Alessia Steven Work Phone: [facility] Work Phone: Start: 03-25-2024 End: 03-25-2024 Patient encounter procedure MD Shantel Steven Work Phone: [facility] Work Phone: Start: 03-13-2024 End: 03-13-2024 Patient encounter procedure MD Shantel Steven Work Phone: [facility] [address] Work Phone: Start: 03-13-2024 End: 03-13-2024 ambulatory MD Shantel Steven Work Phone: [facility] Work Phone: Start: 03-07-2024 End: 03-07-[address] [facility] Start: 02-19-2024 ambulatory Facility:[facility] Start: 02-15-2024 End: 02-15-2024 ambulatory [facility] Work Phone: Start: 02-15-2024 End: 02-15-2024 Patient encounter procedure [facility] Work Phone: Start: 01-29-2024 Non-patient / Non-visit [facility] Work Phone: Start: 01-24-2024 Non-patient / Non-visit [facility] Work Phone: Start: 01-22-2024 Non-patient / Non-visit [facility] Work Phone: Start: 01-18-2024 End: 01-18-2024 Patient encounter procedure [facility] Work Phone: Start: 01-15-2024 Non-patient / Non-visit [facility] Work Phone: Start: 01-04-2024 Non-patient / Non-visit [facility] Work Phone: Start: 12-18-2023 End: 12-18-2023 ambulatory Shantel Steven Other [facility] Other Start: 12-18-2023 Telephone encounter Shantel Steven [facility] Start: 11-19-2023 End: 11-19-2023 ambulatory Shantel Steven Other [facility] Other Start: 11-19-2023 Telephone encounter Shantel Steven [facility] Start: 10-23-2023 End: 10-23-2023 ambulatory Aziz Bakhous Other [facility] Other Start: 10-23-2023 Office outpatient ne w 30 minutes Aziz Bakhous [facility] Start: 10-22-2023 End: 10-22-2023 ambulatory Shantel Tenisha Other [facility] Other Start: 10-22-2023 Telephone encounter Shantel Steven [facility] Start: 10-18-2023 End: 10-18-2023 ambulatory Shantel Steven Other [facility] Other Start: 10-18-2023 Office outpatient vi sit 15 minutes Shantel Steven [facility] Start: 09-07-2023 End: 09-07-2023 ambulatory Shantel Steven Other [facility] Other Start: 09-07-2023 Telephone encounter Shantel Steven [facility] Start: 09-04-2023 End: 09-04-2023 ambulatory Shantel Steven Other [facility] Other Start: 09-04-2023 Office outpatient vi sit 25 minutes Shantel Steven [facility] Start: 08-23-2023 End: 08-23-2023 ambulatory Shantel Steven Other [facility] Other Start: 08-23-2023 Telephone encounter Shantel Steven [facility] Start: 08-17-2023 End: 08-17-2023 ambulatory [facility] Start: 07-23-2023 Telephone encounter Shantel Steven [facility] Start: 07-23-2023 End: 07-23-2023 ambulatory [facility] Other Start: 07-17-2023 End: 07-17-2023 ambulatory Shantel Steven Other [facility] Other Start: 07-17-2023 Office outpatient vi sit 25 minutes Shantel Steven [facility] Start: 05-30-2023 End: 05-30-2023 ambulatory Shantel Steven Other [facility] Other Start: 05-30-2023 Telephone encounter Shantel Steven [facility] Start: 05-22-2023 End: 05-22-2023 ambulatory Shantel Steven Other [facility] Other Start: 05-22-2023 Telephone encounter Shantel Steven [facility] Start: 05-16-2023 End: 05-16-2023 ambulatory Shantel Steven Other [facility] Other Start: 05-16-2023 Telephone encounter Shantel Steven [facility] Start: 05-07-2023 End: 05-07-2023 ambulatory Shantel Steven Other [facility] Other Start: 05-07-2023 Telephone encounter Shantel Steven [facility] Start: 04-30-2023 End: 04-30-2023 ambulatory Shantel Steven Other [facility] Other Start: 04-30-2023 Office outpatient vi sit 25 minutes Shantel Steven [facility] Start: 04-25-2023 End: 04-25-2023 ambulatory RICA KAPLAN [facility] Other Start: 04-25-2023 Telephone encounter Shantel Steven [facility] Start: 04-12-2023 End: 04-12-2023 ambulatory Shantel Steven Other [facility] Other Start: 04-12-2023 Telephone encounter Shantel Steven [facility] Start: 03-09-2023 End: 03-09-2023 ambulatory Shantel Steven Other [facility] Other Start: 03-09-2023 Office outpatient vi sit 15 minutes Shantel Steven [facility] Start: 03-07-2023 End: 03-07-2023 ambulatory Shantel Steven Other [facility] Other Start: 03-07-2023 Telephone encounter Shantel Steven [facility] Start: 03-06-2023 End: 03-06-[address] SHANTEL STEVEN Facility:[facility] Start: 03-05-2023 End: 03-05-2023 ambulatory Shantel Steven Other [facility] Other Start: 03-05-2023 Telephone encounter Shantel Steven [facility] Start: 02-26-2023 End: 02-26-2023 ambulatory Shantel Steven Other [facility] Other Start: 02-26-2023 Telephone encounter Shantel Steven [facility] Start: 02-24-2023 End: 02-24-[address] SHANTEL STEVEN Facility:[facility] Start: 02-23-2023 End: 02-23-2023 ambulatory Shantel Steven Other [facility] Other Start: 02-23-2023 Telephone encounter Shantel Steven [facility] Start: 02-20-2023 End: 02-20-2023 ambulatory Shantel Steven Other [facility] Other Start: 02-20-2023 Transitional care luz tavarezmehreen srvc 14 day discharge Shantel Steven [facility] Start: 02-16-2023 End: 02-16-2023 ambulatory Shantel Steven Other [facility] Other Start: 02-16-2023 Telephone encounter Shantel Steven [facility] Start: 02-13-2023 End: 02-14-[address] SHANTEL STEVEN Facility:[facility] Start: 02-02-2023 End: 02-02-2023 ambulatory Shantel Steven Other [facility] Other Start: 02-02-2023 Telephone encounter Shantel Tenisha [facility] Start: 01-16-2023 End: 01-17-[address] DOCTOR CARMONA Facility:[facility] Start: 01-05-2023 End: 01-05-2023 ambulatory BIN ROJAS Facility:[facility] Start: 01-01-2023 End: 01-02-2023 ambulatory ANALISA BRYANT Facility:[facility] Start: 11-29-2022 End: 11-29-2022 ambulatory Shantel Steven Other [facility] Other Start: 11-29-2022 Telephone encounter Shantel Tenisha [facility] Start: 11-27-2022 End: 11-27-2022 ambulatory Shantel Steven Other [facility] Other Start: 11-27-2022 Telephone encounter Shantel Tenisha [facility] Start: 11-24-2022 End: 11-24-2022 ambulatory Shantel Steven Other [facility] Other Start: 11-24-2022 Telephone encounter Shantel Steven [facility] Start: 11-06-2022 ambulatory YAMEL MCCRACKEN Facility :[facility] Start: 09-15-2022 End: 09-16-[address] SHANTEL STEVEN Facility:[facility] Start: 08-04-2022 End: 08-04-2022 Patient encounter procedure Bin SORENSON [facility] Start: 05-02-2022 End: 05-02-[address] SHANTEL STEVEN Facility: Start: 08-25-2021 Office outpatient ne w 45 minutes Akbar Gardneriswendy STEVENSON [facility] Start: 08-09-2017 End: 08-12-2017 Ambulatory PROVIDER UNKNOWN Facility:[facility] Procedures Date Procedure Procedure Detail Performing Clinician Start: 05-04-2024 Bacteria identified in Urine by Culture MD Shantel Steven Work Phone: Start: 05-04-2024 Blood Culture 1 MD Shantel Steven Work Phone: Start: 03-13-2024 MR lumbar spine wo con [...] hyst erectomy with bilateral salpingo-oophorectomy Bin NILL Plan of Treatment Date Care Activity Detail Author Start: 05-07-2024 Patient referral [facility] Work Phone: Start: 05-04-2024 Blood Culture 1 Blood Culture 1 [facility] Start: 02-15-2024 Patient referral [facility] Work Phone: Comprehensive metabo lic 2000 panel - Serum or Plasma [facility] CT Abdomen and Pelvi s WO contrast [facility] Microalbumin [Mass/v olume] in Urine [facility] Patient referral [facility] Work Phone: [facility] Immunizations Immunization Date Immunization Notes Care Provider Fa cility 01-18-2024 Pneumococcal Conjugate Vaccine, 20 valent [facility] 09-04-2023 influenza, high dose seasonal, preservative-free Shantel Steven Other [employer] [facility] [employer] Other 09-04-2023 influenza virus vaccine, unspecified formulation [facility] 02-04-2021 COVID-19 mRNA, Comirnaty (Pfizer) [facility] 01-21-2021 COVID-19 mRNA, Comirnaty (Pfizer) [facility] 10-09-2018 influenza virus vaccine, split virus (incl. purified surface antigen) Shantel Steven Other [facility] Other 10-09-2018 influenza virus vaccine, unspecified formulation [facility] NEGATED: Highlighted row has not occurred!08-21-2019 influenza virus vaccine, split virus (incl. purified surface antigen) Shantel Steven Other [facility] [facility] [employer] Other Payers Date Payer Category Payer Self-pay [id number] 1958 Medicare [id number] 1958 Self-pay [id number] 1945 Unknown [id number] 2.16.84 [id number] 1945 Unknown [id number] 2.16.84 [id number] 1945 Unknown [id number] 2.16.84 [id number] 1945 Unknown [id number] 2.16.84 [id number] 1945 Unknown [id number] 2.16.84 [id number] 1945 Unknown [id number] 2.16.84 [id number] 1945 Unknown [id number] 2.16.84 [id number] 1945 Unknown [id number] 2.16.84 [id number] 1945 Unknown [id number] 2.16.84 [id number] Unknown Unknown [id number] 2.16.8 [id number] Unknown [id number] 2.16.8 [id number] Social History Date Type Detail Facility Sex Assigned At [place] [employer] Other Start: 08-04-2022 End: 05-22-2024 Tobacco smoking status Ex-smoker (finding) [facility] Tobacco smoking status Never Gener al Surgery [facility] Start: 1945 Sex Assigned At Female F [facility] Medical Equipment Procedure Code Equipment Code Equipment Origin al Text Equipment Identifier Dates Blood Sugar Diagnostic (True Metrix Glucose Test Strip) strip Start: 03-31-2024 Pen Needle, Diab etic (Comfort Ez Pen [place]) 33 gauge x 5/32 needle Start: 03-25-2024 Blood Sugar Diagnostic (True Metrix Glucose Test Strip) strip Start: 03-31-2024 End: 03-31-2024 Blood Sugar Diagnostic (True Metrix Glucose Test Strip) strip Start: 03-31-2024 Pen Needle, Diab etic (Comfort Ez Pen [place]) 33 gauge x 5/32 needle Start: 03-25-2024 Blood Sugar Diagnostic (True Metrix Glucose Test Strip) strip Start: 03-31-2024 End: 03-31-2024 Blood Sugar Diagnostic (True Metrix Glucose Test Strip) strip Start: 03-31-2024 Pen Needle, Diab etic (Comfort Ez Pen [place]) 33 gauge x 5/32 needle Start: 03-25-2024 Blood Sugar Diagnostic (True Metrix Glucose Test Strip) strip Start: 03-31-2024 End: 03-31-2024 Blood Sugar Diagnostic (True Metrix Glucose Test Strip) strip Start: 03-31-2024 Pen Needle, Diab etic (Comfort Ez Pen [place]) 33 gauge x 5/32 needle Start: 03-25-2024 Blood Sugar Diagnostic (True Metrix Glucose Test Strip) strip Start: 03-31-2024 End: 03-31-2024 Functional Status Date Assessment Result Facility 08-04-2022 Functional Status N/A [facility] Clinical Notes 08-25-2021 to 03-07-2024 Note Date & Type Note Facility 03-07-2024 Note [facility] Subjective Joe Call is [...] December 2022 she was admitted to the [facility] with decompensated diastolic heart failure, she was treated with diuretic therapy. In February 2023 she was admitted to [facility] with dehydration secondary to acute gastroenteritis. She also had acute kidney injury in that setting. She has history of breast cancer more than 25 years ago s/p mastectomy, chemo and radiation therapy. She has lymphedema in the left arm. In the past she saw a sausage stringer for bleeding behind the eye . she [...] DAILY NEEDED (more content not included)... [facility] 02-15-2024 Hospital Discharge instructions Ambulatory OrdersReferral to Urology Time Frame: 02/15/24, Location: [facility] Work Phone: 11-19-2023 Evaluation note Encounter Date Diagnosis Assessment Notes Nov, Lumbar degenerative disc disease (ICD-10 - M51.36) [facility] [employer] Other [id number] Evaluation note* Encounter Date Diagnosis Assessment Notes [...] will check vitamin B12 level next visit [facility] Other 12-11-2023 Evaluation note* Encounter Date Diagnosis Assessment Notes Treatment Notes Treatment Clinical Notes Oct, Lumbar degenerative disc disease (ICD-10 - M51.36) [facility] Other 12-07-2023 Evaluation note* Encounter Date Diagnosis Assessment Notes Treatment Notes Treatment Clinical Notes Oct, Bronchitis (ICD-10 - J40) Finish meds. No acute need for antibiotic at this time Oct, Diabetes mellitus with chronic kidney disease (ICD-10 - E11.22) Due for labs, followup w Dr. Mcconnell Oct, Lumbar degenerative disc disease (ICD-10 - M51.36) Pt will contact neurosurgery. [facility] Other 10-27-2023 Evaluation note* Encounter Date Diagnosis Assessment Notes Treatment Notes Treatment Clinical Notes Aug, Chronic kidney disease, stage 4 (severe) (ICD-10 - N18.4) [facility] Other 10-24-2023 Evaluation note* Encounter Date Diagnosis [...] (ICD-10 - M51.36) Pt requests referral to [facility]. Reviewed OARRS report. Aug, Stress incontinence of urine (ICD-10 - N39.3) R/o infection. Discussed could be related to her diabetes med as well. [facility] Other 10-12-2023 Evaluation note* Encounter Date Diagnosis Assessment Notes Treatment Notes Treatment Clinical Notes Aug, Lumbar degenerative disc disease (ICD-10 - M51.36) [facility] Other 10-06-2023 NotePatient here for 1 mo follow up CAD, chronic diastolic heart failure, and PAF. Follow up labs have not been completed yet. Her rubber gasket inspector trimmer recently started her on Farxiga but she [...] All other systems reviewed and are negative.[facility] 08-17-2023 NoteCardiology Clinic Note Subjective Joe [...] In February 2023 she was admitted to [facility] with dehydration secondary to acute gastroenteritis. She also had acute kidney injury in that setting. She has history of breast cancer more than 25 years ago s/p mastectomy, chemo and radiation therapy. She has lymphedema in the left arm. She has been doing well. No chest pain. No dyspnea. No palpitations. She reports that she is seeing a sausage stringer for bleeding behind the eye . She has had a lot of balance issues, uses a walker to ambulate and has had about 10 falls in the past year. Update: 07/23/2023 She was admitted to [facility] 07/08-07/10/2023 for decompensated HFpEF She was diuresed [...] with questions Was prescribed Farxiga by her rubber gasket inspector trimmer but did not start after reading about [...] Disp: , Rfl (more content not included)...[facility] Encounter Date Diagnosis Assessment Notes Treatment Notes Treatment Clinical Notes Jul, Lumbar degenerative disc disease (ICD-10 - M51.36) [facility] Other 09-11-2023 NoteCardiology Clinic Note Subjective Joe [...] In February 2023 she was admitted to [facility] with dehydration secondary to acute gastroenteritis. She also had acute kidney injury in that setting. She has history of breast cancer more than 25 years ago s/p mastectomy, chemo and radiation therapy. She has lymphedema in the left arm. She has been doing well. No chest pain. No dyspnea. No palpitations. She reports that she is seeing a sausage stringer for bleeding behind the eye . She has had a lot of balance issues, uses a walker to ambulate and has had about 10 falls in the past year. Update: 07/23/2023 She was admitted to [facility] 07/08-07/10/2023 for decompensated HFpEF She was diuresed [...] each day., Disp: (more content not included)...[facility]09-11-2023 NotePatient here for follow up [facility] for CHF. She was seen as inpatient [...] All other systems reviewed and are negative.[facility] 07-17-2023 Evaluation note* Encounter Date Diagnosis [...] refill. Oarrs reviewed. No med changes needed. [facility] Other 07-05-2023 Evaluation note* Encounter Date Diagnosis Assessment Notes Treatment Notes Treatment Clinical Notes May, C. difficile colitis (ICD-10 - A04.72) [facility] Other 06-19-2023 Evaluation note* Encounter Date Diagnosis Assessment Notes Treatment Notes Treatment Clinical Notes Apr, Skin candidiasis (ICD-10 - B37.2) Discussed this is related to her hyperglycemia. Will treat w nystatin, but needs improvement in diet and glucose readings. Apr, Type 2 diabetes mellitus with hyperglycemia, unspecified whether medical terminologist insulin use (ICD-10 - E11.65) Pt agrees to see Dr Mcconnell again. Recently sent to ER for glucose of 608. Apr, Tremor of both hands (ICD-10 - R25.1) Referral to Dr. Lopez Apr, Memory changes (ICD- 10 - R41.3) Referral to Dr. Lopez Apr, Gastroesophageal reflux disease without esophagitis (ICD-10 - K21.9) Improved on carafate w PPI. [facility] Other 06-14-2023 NoteUT Cardiology - [facility] Subjective Joe Call is a 77 [...] December 2022 she was admitted to the [facility] with decompensated diastolic heart failure, she was treated with diuretic therapy. In February 2023 she was admitted to [facility] with dehydration secondary to acute gastroenteritis. She also had acute kidney injury in that setting. She has history of breast cancer more than 25 years ago s/p mastectomy, chemo and radiation therapy. She has lymphedema in the left arm. She has been doing well. No chest pain. No dyspnea. No palpitations. She reports that she is seeing a sausage stringer for bleeding behind the eye . She [...] mg by mouth (more content not included)...[facility]06-01-20[facility] Evaluation note* Encounter Date Diagnosis Assessment Notes Treatment Notes Treatment Clinical Notes Apr, Gastroesophageal ref lux disease without esophagitis (ICD-10 - K21.9) [facility] Other 04-28-2023 Evaluation note* Encounter Date Diagnosis [...] get lab ordered on 02/20 today Feb, residential (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 insulin (ICD-10 - Z79.4) [facility] Other 04-26-2023 Evaluation note* Encounter Date Diagnosis Assessment Notes Treatment Notes Treatment Clinical Notes Feb, C. difficile colitis (ICD-10 - A04.72) [facility] Other 04-17-2023 Evaluation note* Encounter Date Diagnosis Assessment Notes Treatment Notes Treatment Clinical Notes Feb, Gastroesophageal ref lux disease without esophagitis (ICD-10 - K21.9) [facility] Other 04-14-2023 Evaluation note* Encounter Date Diagnosis Assessment Notes Treatment Notes Treatment Clinical Notes Feb, Chronic diarrhea (ICD-10 - K52.9) [facility] Other 04-11-2023 Evaluation note* Encounter Date Diagnosis Assessment Notes Treatment Notes Treatment Clinical Notes 11 Feb, 2023 Acute kidney injury (ICD-10 - N17.9) Reviewed [...] it really overall has not been helpful. [facility] Other 01-13-2023 Evaluation note* Encounter Date Diagnosis Assessment Notes Treatment Notes Treatment Clinical Notes Nov, Type 2 diabetes mellitus with hyperglycemia, unspecified whether halfway insulin use (ICD-10 - E11.65) [facility] Other 10-14-2021 Evaluation note* Encounter Date Diagnosis [...] training 6. Follow up in 3 months. [facility] Other Evaluation + Plan note No data available for this section General [facility] [place] Evaluation noteNo InformationNort [employer] Other [facility] [employer] Other Evaluation noteNosain[facility] [employer] Other Evaluation note* Diagnosis Onset Date Resolution Status Chalazion of right eye acute Immunization due acute Urinary incontinence acute [facility] Work Phone: Evaluation note* Diagnosis Onset Date Resolution Status Chalazion of right eye acute Immunization due acute Urinary incontinence acute Diabetes mellitus with hyperglycemia acute Hypertension acute Hypothyroidism acute Lumbar spondylosis acute Secondary hyperparathyroidism acute [facility] Work Phone: Evaluation note* Diagnosis Onset Date Resolution Status Urinary incontinence acute Diabetes mellitus with hyperglycemia acute Hypertension acute Hypothyroidism acute Lumbar spondylosis acute Secondary hyperparathyroidism acute Acute on chronic diastolic C HF (congestive heart failure) acute Diabetes mellitus with hyperglycemia acute Hypertension acute Cervical disc disease acute CKD (chronic kidney disease), stage IV acute Diabetes mellitus with hyperglycemia acute Thrush of mouth and esophagus acute [facility] Work Phone: Evaluation note* Diagnosis Onset Date Resolution Status Diabetes mellitus with hyperglycemia acute Hypertension acute Hypothyroidism acute Lumbar spondylosis acute Secondary hyperparathyroidism acute Acute on chronic diastolic C HF (congestive heart failure) acute Diabetes mellitus with hyperglycemia acute Hypertension acute Cervical disc disease acute CKD (chronic kidney disease), stage IV acute Diabetes mellitus with hyperglycemia acute Thrush of mouth and esophagus acute Abdominal swelling, generalized acute Acute on chronic diastolic C HF (congestive heart failure) acute Back pain with history of spinal surgery acute Cervical disc disease acute CKD (chronic kidney disease), stage IV acute UTI (urinary tract infection) acute [facility] Work Phone: [employer] general Narrative - Reported* Type Description Date [...] History COLONOSCOPY 04/10/2019 Hospitalization History See above [facility] Other Hiscsnj general Narrative - Reported* Type Description Date [...] History COLONOSCOPY 04/10/2019 Hospitalization History See above [facility] Other History general Narrative - ReportedNoEspinela Other History general Narrative - ReportedNoEspinela Other Hisagog general Narrative - Reported* Type Description Date [...] GERD 2022 Hospitalization History DIABETES ISSUES 2022 [facility] Other Hospital Discharge instructions No data available for this section General Surgery [employer] Progress note No data available for this section General Surgery [employer] Summary Purpose Family History No Family History Records Found Relationship Condition Age at Onset Recorded Date/T deborah father Unknown Heart disease Unknown family member Family history of other condition Unknow n Not Specified Heart disease Unknown Unknown sister Alzheimer's dementia Unknown Relationship Condition Age at Onset Recorded Date/T deborah father Unknown Heart disease Unknown family member Family history of other condition Unknow n mother Heart disease Unknown Unknown sister Alzheimer's dementia Unknown Advance Directives No Advanced Directives Records Found Advance Directive Response Recorded Date/ Time Advance Directives No June 11 9:56pm Reason for Referral Reason *Waiting for appt Labs last week. Sees endocrinology for diabetes. Renal function decreased. Diagnosis 1 Chronic kidney disea se, stage 4 (severe) (N18.4) Referral Organization [facility] Waterfall helene Referring Provider First Name Shantel Referring Provider Last Name Tenisha Referring Provider Specialty [facility] [place] Referred Organization [facility] Nephrology Referred Provider Cherie Rapp Referred Address [address] ,[place], [place],[address] Referred Provider Specialty Nephrology Referral Priority Routine General Notes Mariela Kingston 11:35:41 AM >received today, sent P2P Reason *FU 09/13 lumbar p ain Diagnosis 1 Lumbar degenerative disc disease (M51.36) Referral Organization [facility] [employer] helene Referring Provider First Name Shantel Referring Provider Last Name Tenisha Referring Provider Specialty [facility] [place] Referred Organization [facility] [place] Referred Provider Terell Soliz Referred Address [address] [place], [place],[address] Referred Provider Specialty [facility] Referral Priority Routine General Notes Mariela Kingston 03:09:25 PM >received today, waiting for notes to be locked Vashti Mariela 09/06/2023 10:08:29 AM >notes locked, referral faxed Clinical Notes F: [id number] Reason Poorly controlled di abetes Diagnosis 1 Type 2 diabetes maranda itus with hyperglycemia, unspecified whether halfway insulin use (E11.65) Referral Organization [facility] [employer]yze helene Referring Provider First Name Shantel Referring Provider Last Name Tenisha Referring Provider Specialty [facility] [employer] Referred Organization Unknown Facility Referred Provider Joshua Mcconnell Referred Provider Specialty Internal Med icine Referral Priority Routine Reason tremor and memory lo ss - family history of dementia Diagnosis 1 Tremor of both hands (R25.1) Referral Organization [facility] [employer] helene Referring Provider First Name Shantel Referring Provider Last Name Tenisha Referring Provider Specialty [facility] [employer] Referred Organization Unknown Facility Referred Provider Emery [...] hyperglycemia Hypertension Hypothyroidism Lumbar spondylosis Secondary hyperparathyroidism Chief Complaint Discharge Issues/ Ur inary Issues M54.50 medication review Amb Documentation Amb Documentation tbh follow up difficulty swallowing Amb Documentation TBH follow up, Hypercolemia Reason for Visit Urinary incontinence Diabetes mellitus with hyperglycemia Hypertension Hypothyroidism Lumbar spondylosis Secondary hyperparathyroidism Acute on chronic diastolic CHF (congestive heart failure) Diabetes mellitus with hyperglycemia Hypertension Cervical disc disease CKD (chronic kidney disease), stage IV Diabetes mellitus with hyperglycemia Thrush of mouth and esophagus Chief Complaint M54.50 medication review Amb Documentation Amb Documentation tbh follow up difficulty swallowing Amb Documentation TBH follow up, Hypercolemia throat problem Reason for Visit Diabetes mellitus wi th hyperglycemia Hypertension Hypothyroidism Lumbar spondylosis Secondary hyperparathyroidism Acute on chronic diastolic CHF (congestive heart failure) Diabetes mellitus with hyperglycemia Hypertension Cervical disc disease CKD (chronic kidney disease), stage IV Diabetes mellitus with hyperglycemia Thrush of mouth and esophagus Abdominal swelling, generalized Acute on chronic diastolic CHF (congestive heart failure) Back pain with history of spinal surgery Cervical disc disease CKD (chronic kidney disease), stage IV UTI (urinary tract infection) Chief Complaint M54.50 medication review Amb Documentation Amb Documentation tbh follow up difficulty swallowing Amb Documentation [facility]H follow up, Hypercolemia throat problem SOB Reason for Visit Diabetes mellitus wi th hyperglycemia Hypertension Hypothyroidism Lumbar spondylosis Secondary hyperparathyroidism Acute on chronic diastolic CHF (congestive heart failure) Diabetes mellitus with hyperglycemia Hypertension Cervical disc disease CKD (chronic kidney disease), stage IV Diabetes mellitus with hyperglycemia Thrush of mouth and esophagus Abdominal swelling, generalized Acute on chronic diastolic CHF (congestive heart failure) Back pain with history of spinal surgery Cervical disc disease CKD (chronic kidney disease), stage IV UTI (urinary tract infection) Additional Source Comments INFORMATION SOURCE (unrecogn ized section and content) DATE CREATED AUTHOR 05/10/2018 [facility] [place] DATE CREATED AUTHOR AUTHOR'S ORGANIZ ATION 03/10/2023 [facility] DATE CREATED AUTHOR AUTHOR'S ORGANIZ ATION 02/20/2024 [facility] DATE CREATED AUTHOR AUTHOR'S ORGANIZ ATION 03/10/2024 [facility] DATE CREATED AUTHOR AUTHOR'S ORGANIZ ATION 05/28/2024 [facility] REASON FOR VISIT (unrecogniz ed section and content) Bilateral Knee Painmedicatio nprescription refillprescription refillprescription refillsTCMTBHmessagerefillrefillc diff2 MONTH FOLLOW UPrefillcritical labBlood Work/RashmessagemedicationTBHRefillsrefillscriticalsleep issueslabsrefillRENAL CKD 4head cold for 2 weeksrefillmessage Care Team (unrecognized sect ion and content) Team Status: Active Member Role Status Dates Shantel Steven MD Primary Care Provider Active Team Status: Inactive Member Role Status Dates [...] April 03, 2024 End: April 03, 2024 Team Status: Inactive Member Role Status Dates Shantel Steven MD Primary Care Provide r, Attending Provider Active Start: April 29, 2024 End: April 29, 2024 Team Status: Active Member Role Status Cecille Steven MD Primary Care Provider Active Start: April 30, 2024 Analisa Bryant MD Attending Provider Active St art: April 30, 2024 Team Status: Active Member Role Status Cecille Steven MD Primary Care Provide r, Attending Provider Active Start: May 01, 2024 Team Status: Active Member Role Status Cecille Steven MD Primary Care Provider Active Start: May 02, 2024 Daniela Montana LPN Attending Provider Active S tart: May 02, 2024 Team Status: Active Member Role Status Dates Shantel Steven MD Primary Care Provider Active Start: May 04, 2024 Lamine Singh Attending Provider Active Start: May 04, 2024 Team Status: Active Member Role Status Dates Shantel Steven MD Primary Care Provider Active Start: May 05, 2024 Carl Morales MD Attending Provider Active Sta rt: May 05, 2024 Team Status: Active Member Role Status Dates Shantel Steven MD Primary Care Provider Active Start: May 06, 2024 Carl Morales MD Attending Provider Active Sta rt: May 06, 2024 Team Status: Inactive Member Role Status Dates Shantel Steven MD Primary Care Provide r, Attending Provider Active Start: May 07, 2024 End: May 07, 2024 Team Status: Active Member Role Status [...] End: January 18, 2024 Franchesca Sullivan APRN [employer] FLOOR ATTENDANT-Nasima Attending Provider Act chiqui Start: January 18, [...] Care Provide r, Attending Provider Active Start: May 19, 2024 End: May 19, 2024 Team Status: Active Member Role Status Dates Shantel Steven MD Primary Care Provider Active Start: May 20, 2024 JORGE LUIS Espinoza Attending Provider Active S tart: May 20, 2024 Team Status: Inactive Member Role Status Dates Shantel Steven MD Primary Care Provider Active Start: May 22, 2024 End: May 22, 2024 Jesus Barbour DO Emergency Provider Active St art: May 22, 2024 End: May 22, 2024 Goals (unrecognized section and content) Goals [...] BE BASED ON THE PRIMARY CLINICAL RECORDS. [facility] [employer] [facility]. provides no warranty or guarantee of the accuracy or completeness of information in this document.
--- NOTE | 2024-06-01 08:10 | ECG_ITS ---
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
--- NOTE | 2024-06-01 08:41 | CT_ITS ---
[address] [address] Patient Name: JOE CALL MRN: [id number] date: 1945 Sex: F Assigned Patient Location: ER Current Patient Location: Accession/Order Number: [id number] Exam Date: 06/01/2024 08:52 Report Date: 06/01/2024 09:40 At the request of: SANAZ ALTAMIRANO Procedure: CT abdomen pelvis wo con EXAM: CT abdomen pelvis wo con INDICATION: abd pain. COMPARISON: CT abdomen pelvis 02/13/2023. TECHNIQUE: Multiple contiguous axial CT images of the abdomen and pelvis were obtained without the use of intravenous contrast. Sagittal and coronal reconstructions were performed. Dose reduction techniques were achieved by using: automated exposure control and/or adjustment of mA and /or kV according to patient size and/or use of iterative reconstruction technique. FINDINGS: Evaluation of visceral organs limited by noncontrast technique. LOWER CHEST: Clear lung bases. Small hiatal hernia. Severe mitral annulus calcifications. ABDOMEN AND PELVIS: LIVER: Unremarkable. BILIARY SYSTEM: Cholecystectomy. No biliary ductal dilatation. PANCREAS: Unremarkable. SPLEEN: Unremarkable. ADRENAL GLANDS: Stable right adrenal 1.3 cm adenoma. Normal left adrenal gland. URINARY SYSTEM: Unremarkable kidneys. No hydronephrosis or urolithiasis. Normal bladder. REPRODUCTIVE: Hysterectomy. Stable right ovary 3.7 cm cyst. GASTROINTESTINAL TRACT: Changes of sigmoidectomy. Normal caliber bowel without wall thickening or inflammation. Colonic diverticulosis. The appendix is not visualized. VESSELS: Nonaneurysmal abdominal aorta with severe atherosclerotic calcifications. LYMPH NODES: No adenopathy. PERITONEUM: No ascites or pneumoperitoneum. MUSCULOSKELETAL: SOFT TISSUES: Small fat-containing supraumbilical ventral hernias. BONES: No acute osseous abnormality or suspicious osseous lesion. Posterior fusion changes at L4-5. Advanced degenerative changes of the lumbar spine. MCDONALD: (series:image) CT/CT abdomen pelvis wo con IMPRESSION: No acute abdominal or pelvic process. Electronically authenticated by: NAN CONTRERAS Date: 06/01/2024 09:40
[2024-06-01 08:48] LABS: Basophils Absolute Auto 0.1 10^3/uL (0.0-0.1); Basophils Percent Auto 0.9 % (0.2-2.0); Eosinophils Absolute Auto 0.1 10^3/uL (0.0-0.7); Eosinophils Percent Auto 1.2 % (0.9-7.0); Hematocrit 37.6 % (36.0-48.0); Hemoglobin 12.5 g/dL (12.0-16.0); Immature Granulocytes Abs Auto 0.02 10^3/uL (0.00-0.03); Immature Granulocytes Pct Auto 0.2 % (0.0-0.5); Lymphocytes Absolute Auto 1.4 10^3/uL (1.2-3.8); Lymphocytes Percent Auto 15.9 % (20.5-60.0); Mean Corpuscular HGB Conc 33.2 g/dL (29.9-35.2); Mean Corpuscular Hemoglobin 29.5 pg (26.7-34.0); Mean Corpuscular Volume 88.7 fL (81.0-99.0); Mean Platelet Volume 11.1 fL (9.5-13.5); Monocytes Absolute Auto 0.8 10^3/uL (0.3-0.8); Monocytes Percent Auto 8.5 % (1.7-12.0); Neutrophils Absolute Auto 6.6 10^3/uL (1.4-6.5); Neutrophils Percent Auto 73.3 % (43.0-75.0); Platelet Count 162 10^3/uL (150-450); Red Blood Count 4.24 10^6/uL (4.20-5.40); Red Cell Distribution Width 14.1 % (11.0-15.0)
--- NOTE | 2024-06-01 08:53 | ED_ITS ---
HPI - Abdominal Pain General Chief Complaint: Abdominal Pain Stated Complaint: stomach pain Time Seen by Provider: 06/01/24 08:06 Source: patient Mode of arrival: Carry Limitations: no limitations History of Present Illness HPI narrative: The patient have history of chronic kidney disease congestive heart failure and also have a history of breast cancer, patient was just evaluated almost 6 days ago for decreased p.o. intake and dysphagia is coming to us today with 5 days history of constipation, patient also is complaining generalized abdominal pain and distention, no nausea no vomiting, last time she ate anything was this morning when she had 3 cookies The patient denies any fever chills or any other complaints Mentioned that the pain is crampy all over the abdomen She did had her last bowel movement 5 days ago and she had given herself today an enema that did not help Related Data Home Medications ?Medication ?Instructions ?Recorded ?Confirmed insulin glargine 100 unit/mL (3 35 unit subcut BEDTIME 04/25/23 05/04/24 mL) subcutaneous pen (Lantus Solostar U-100 Insulin) metoprolol tartrate 100 mg tablet 150 mg PO BID 04/25/23 05/04/24 rivaroxaban 20 mg tablet (Xarelto) 20 mg PO QPM 04/25/23 05/04/24 insulin aspar prot-insulin aspart 35 unit subcut DAILY 07/08/23 05/04/24 100 unit/mL (70-30) subcutaneous pen (Novolog Mix 70-30FlexPen U-100) alprazolam 0.25 mg tablet 0.25 mg PO TID PRN anxiety 04/30/24 05/04/24 levothyroxine 125 mcg tablet 125 mcg PO .acb 04/30/24 05/04/24 oxycodone-acetaminophen 5 mg-325 1 tab PO BID PRN pain 04/30/24 05/04/24 mg tablet Previous Rx's ?Medication ?Instructions ?Recorded cefdinir 300 mg capsule 600 mg (2 x 300 mg) PO DAILY #14 05/06/24 caps Allergies Allergy/AdvReac Type Severity Reaction Status Date / Time Sulfa (Sulfonamide Allergy Rash Verified 06/01/24 08:07 Antibiotics) Review of Systems ROS Status of ROS 10 or more systems reviewed and unremark able except as noted in history and below [facility] Medical History (Updated 06/01/24 @ 10:38 by Nikky Silverman MD) Acute renal failure ?N17.9 - Acute kidney failure, unspecified (ICD-10) Hyperkalemia ?E87.5 - Hyperkalemia (ICD-10) Acute dehydration ?E86.0 - Dehydration (ICD-10) CKD stage 3a, GFR 45-59 ml/min ?N18.31 - Chronic kidney disease, stage 3a (ICD-10) Diabetes mellitus with hyperglycemia, with long-term current use of insulin ?E11.65 - Type 2 diabetes mellitus with hyperglycemia (ICD-10) ?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9 - Obesity, unspecified (ICD-10) Surgical History (Updated 03/26/24 @ 06:36 by Brooke Conrad) H/O bilateral mastectomy ?Z90.13 - Acquired absence of bilateral breasts and nipples (ICD-10) Family History (Updated 07/08/23 @ 04:02 by Mira Addison) Other Family history of CHF (congestive heart failure) Family history of cancer Family history of diabetes mellitus Family history of hypertension H/O mastectomy Social History (Updated 03/26/24 @ 06:38 by Brooke Conrad) Within the past year, how often did you have a drink containing alcohol: never Within the past year, how often did you have six or more drinks on one occasion: never Score interpretation: A score less than 3 is consistent with normal alcohol consumption. 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 Highest level of school completed/degree received: some college, no degree Do you want help with school or training: No Are you now , , , , never or living with a partner: In a typical week, how many times do you talk on the telephone with family, friends, or neighbors: 3 or more times per week How often do you get together with friends or relatives: 3 or more times per week How often do you attend adventism or catholic services: never Do you belong to any clubs or organizations such as adventism groups unions, fraternal or athletic groups, or school groups: no Total score: 2 Score interpretation: A score of greater than or equal to 2 indicates the lowest level of social isolation. Little interest or pleasure in doing things: not at all Feeling down, depressed, or hopeless: not at all Feel stressed/tense/nervous/anxious/difficulty sleeping: not at all Due to disability, difficulty making decisions: No Do you think of yourself as: straight/heterosexual Gender Identity: female Exam Narrative Exam Narrative: Nurses notes and vital signs reviewed and patient is not hypoxic. General: Well-appearing and in no apparent distress. Skin: Warm, dry, no pallor noted. No rash. Head: Normocephalic, atraumatic. Neck: Supple, non-tender. Eye: Pupils are equal, round and EOMI. No scleral icterus. Ears, Nose, Mouth, and Throat: TM are clear, no nasal mucosal hypertrophy. Oral mucosa is moist, no posterior oropharynx erythema, uvula is mid-line Cardiovascular: Regular Rate and Rhythm without murmur, gallop or rub. Respiratory: No accessory muscle use or respiratory distress. Lungs are clear to auscultation, no wheezing, rales or rhonchi Chest Wall: no tenderness Back: No midline thoracic or lumbar vertebral tenderness. No CVA tenderness Musculoskeletal: normal ROM, no calf or popliteal tenderness, no lower extremity edema/swelling GI: Abdomen is soft, patient have a abdominal distention with generalized subjective pain Neurological: A&O x4. No cranial nerve dysfunction observed. No truncal ataxia. Moves all extremities. Sensation intact. Psychiatric: Cooperative and interactive. Normal mood and affect. Constitutional Vital Signs, click to edit/add: Last Vital Signs Temp 97.9 F 06/01/24 08:03 Pulse 67 07/21/24 10:10 Resp 14 06/01/24 10:10 BP 158/90 H 06/01/24 08:03 Pulse Ox 97 06/01/24 10:10 O2 Del Method Room Air 06/01/24 08:03 Course Vital Signs Vital signs: Vital Signs Temperature 97.9 F 06/01/24 08:03 Pulse Rate 67 06/01/24 08:03 Respiratory Rate 18 06/01/24 08:03 Blood Pressure 158/90 H 06/01/24 08:03 Pulse Oximetry 94 L 06/01/24 08:03 Oxygen Delivery Method Room Air 06/01/24 08:03 Temperature 97.9 F 06/01/24 08:03 Pulse Rate 67 06/01/24 10:10 Respiratory Rate 14 06/01/24 10:10 Blood Pressure 158/90 H 06/01/24 08:03 Pulse Oximetry 97 06/01/24 10:10 Oxygen Delivery Method Room Air 06/01/24 08:03 MDM - Abdominal Pain MDM Narrative Medical decision making narrative: The patient EKG showing sinus rhythm with a heart rate of [address] elevation or depression The patient CBC and chemistry showed no acute pathology and the CAT scan showed no significant pathology as well It was noted that the patient 6 days ago did not have enough p.o. intake and she still taking only applesauce and water I did explain to her right now that with her current diet and no increase in her fiber intake she does not expect to have a good bowel movement and she need to increase her fiber intake The patient understand The patient is to follow up with primary care physician in next 2-3 days or to return to the emergency department should any of the signs or symptoms worsen or new symptoms develop. The patient agrees with the following Diagnosis and Treatment plan and the patient will be discharged home. Lab Data Labs: Lab Results 06/01/24 Range/Units 08:36 WBC 9.0 (4.0-11.0) 10^3/uL RBC 4.24 (4.20-5.40) 10^6/uL Hgb 12.5 (12.0-16.0) g/dL Hct 37.6 (36.0-48.0) % MCV 88.7 (81.0-99.0) fL MCH 29.5 (26.7-34.0) pg MCHC 33.2 (29.9-35.2) g/dL RDW 14.1 (11.0-15.0) % Plt Count 162 (150-450) 10^3/uL MPV 11.1 (9.5-13.5) fL Neut % (Auto) 73.3 (43.0-75.0) % Lymph % (Auto) 15.9 L (20.5-60.0) % Cascade % (Auto) 8.5 (1.7-12.0) % Eos % (Auto) 1.2 (0.9-7.0) % Baso % (Auto) 0.9 (0.2-2.0) % Neut # (Auto) 6.6 H (1.4-6.5) 10^3/uL Lymph # (Auto) 1.4 (1.2-3.8) 10^3/uL Cascade # (Auto) 0.8 (0.3-0.8) 10^3/uL Eos # (Auto) 0.1 (0.0-0.7) 10^3/uL Baso # (Auto) 0.1 (0.0-0.1) 10^3/uL Abs Immat Gran (auto) 0.02 (0.00-0.03) 10^3/uL Imm/Tot Granulo (auto) 0.2 (0.0-0.5) % Sodium 137 (136-145) mmol/L Potassium 4.1 (3.5-5.1) mmol/L Chloride 101 (98-107) mmol/L Carbon Dioxide 28.9 (21.0-32.0) mmol/L Anion Gap 11.2 BUN 23.0 H (7.0-18.0) mg/dL Creatinine 1.12 H (0.55-1.02) mg/dL Est GFR ( Amer) 57 L (>=60) Est GFR (Non-Af Amer) 47 L (>=60) BUN/Creatinine Ratio 20.5 Glucose 232 H (74-106) mg/dL Calcium 8.7 (8.5-10.1) mg/dL Total Bilirubin 0.5 (0.2-1.0) mg/dL AST 16 (15-37) U/L ALT 18 (14-59) U/L Alkaline Phosphatase 87 (46-116) U/L Total Protein 7.1 (6.4-8.2) g/dL Albumin 2.7 L (3.4-5.0) g/dL Globulin 4.4 g/dL Albumin/Globulin Ratio 0.6 Discharge Plan Discharge Stand Alone Forms: Portal Instructions Chief Complaint: Abdominal Pain Clinical Impression: Abdominal pain Qualifiers: Abdominal location: generalized Qualified Code(s): R10.84 - Generalized abdominal pain Patient Disposition: Home, Self-Care Time of Disposition Decision: 10:38 Condition: Good Prescriptions / Home Meds: No Action insulin glargine [Lantus Solostar U-100 Insulin] 100 unit/mL (3 mL) insulin pen 35 unit SUBCUT BEDTIME metoprolol tartrate 100 mg tablet 150 mg PO BID Xarelto 20 mg tablet 20 mg PO QPM Rx Instructions: must administer with evening meal insulin asp prt-insulin aspart [Novolog Mix 70-30FlexPen U-100] 100 unit/mL (70-30) insulin pen 35 unit subcut DAILY Rx Instructions: USE DIRECTED PER SLIDING SCALE- MAX 35 UNITS DAILY levothyroxine 125 mcg tablet 125 mcg PO .acb alprazolam 0.25 mg tablet 0.25 mg PO TID PRN (Reason: anxiety) Patient Comments: 0.25mg PO TID PRN for anxiety oxycodone-acetaminophen 5-325 mg tablet 1 tab PO BID PRN (Reason: pain) cefdinir 300 mg capsule 600 mg PO DAILY Qty: 14 0RF Print Language: Kazakh Instructions: High Fiber Diet (ED) Referrals: Theodora Cuevas MD [Primary Care Provider] - 1 week
[2024-06-01 09:04] LABS: Alanine Aminotransferase 18 U/L (14-59); Albumin Globulin Ratio 0.6; Albumin Level 2.7 g/dL (3.4-5.0); Alkaline Phosphatase 87 U/L (46-116); Anion Gap 11.2; Aspartate Amino Transferase 16 U/L (15-37); BUN Creatinine Ratio 20.5; Bilirubin Total 0.5 mg/dL (0.2-1.0); Calcium 8.7 mg/dL (8.5-10.1); Carbon Dioxide 28.9 mmol/L (21.0-32.0); Chloride 101 mmol/L (98-107); Estimated GFR (African America 57 (>=60); Estimated GFR (Non-African Ame 47 (>=60); Globulin 4.4 g/dL; Glucose 232 mg/dL (74-106); Potassium 4.1 mmol/L (3.5-5.1); Sodium 137 mmol/L (136-145); Total Protein 7.1 g/dL (6.4-8.2)
[2024-06-01] MEDS: 0.9 % SODIUM CHLORIDE 1,000 ML 500 ML IV (09:18)
== END 2024-06-01 10:50 | disposition home or self-care (01) ==
PROVIDERS: Emergency Provider Emergency Medicine; PCP Family Medicine
DX: R10.84 Generalized abdominal pain (principal); N18.9 Chronic kidney disease, unspecified; I50.9 Heart failure, unspecified; Z85.3 Personal history of malignant neoplasm of breast
CPT/HCPCS: 36415; 74176; 80053; 85025; 93005; 99285

== ENCOUNTER 2024-06-09 04:45 | Observation (INO) | payer MEDICARE, SELFPAY ==
[2024-06-09] VITALS (40 sets, daily range): BP systolic 117–203; BP diastolic 61–110; PULSE 60–78; TEMP 36.4–36.8; O2SAT 92–96; BMI 43.3
--- OUTSIDE RECORDS SUMMARY | 2024-06-09 05:03 | XMS_ITS | CCD ---
Author Organization [facility] Care Team Providers Care Linen Room Custodian Name Role Phone UNKNOWN, PROVIDER Unavailable Unavailable UNKNOWN, PROVIDER Unavailable Unavailable NIC BRYAN Unavailable Unavailable Akbar Cui II Unavailable SHNATEL STEVEN Primary Care Physician [phone] Un[address] DR SHANTEL STEVEN Primary [...] Unavailable BIN ROJAS Consulting Unavailable DIAB ., NIKKY Admitting Unavailable DIAB ., NIKKY Attending Unavailable TENISHA, DR SHANTEL Alvarado Primary Care Unavailable DIAB ., NIKKY Consulting Unavailable TENISHA, DR SHANTEL Alvarado Primary [...] Attending Provider MD Eloina Hussein Referring Provider DO Jesus [...] Drugs) Drug allergy (disorder) 03-04-20 12 [facility] (20 sources) Shellfish; Translations: [Shellfish] Food allergy (disorder) 03-04-20 12 rash, Eruption of skin (disorder) [facility] (11 sources) Sulfonamides (Antibiotic); Translations: [SULFA (SULFONAMIDE ANTIBIOTICS)] Drug allergy (disorder) 03-04-20 12 Rash [facility] (20 sources) Sulfacetamide Drug Allergy 02-15-20 24 diarrhea [facility] (13 sources) Contrast media; Translations: [contrast media (iodine-based)] Drug allergy Unknown (qualifier value) [facility] [place] (2 sources) Sulfonamides (Antibiotic); Translations: [sulfa drugs] Drug allergy Diarrhea (finding) [facility] (2 sources) Glucosamine Drug Allergy [facility] (2 sources) Iodine (And Iodine Containting Drugs) Drug allergy (disorder) 08-09-20 17 [facility] (11 sources) Contrast media Propensity to adverse reactions 11-18-[address] DYE [facility] [place] Other (12 sources) Iodine; Translations: [IODINE] Drug Allergy 10-30-20 14 Unknown [facility] (11 sources) Substance with sulfonamide structure and antibacterial mechanism of action (substance) Drug allergy Unknown [facility] [place] Other (11 sources) Dyes Propensity to adverse reactions Comment:CT Dyes,Dyes,IVP Dyes [facility] [place] Other (9 sources) Shellfish; Translations: [SHELLFISH DERIVED] Allergy to substance 10-30-20 14 [facility] (9 sources) Iodinated Contrast Media; Translations: [IODINATED CONTRAST MEDIA] Allergy to substance 02-15-20 24 [facility] (1 source) Chocolate; Translations: [CHOCOLATE FLAVOR] Propensity to adverse reactions to drug (disorder) 01-17-20 [facility] (1 source) Sulfacetamide Drug Allergy 05-22-20 24 [facility] Rep[facility] (1 source) Sulfonamides (Antibiotic) Drug allergy (disorder) 05-22-20 [facility] Rep[facility] Medications Current Medications Medication Drug Class(es) Dates Sig (Normalized) Sig (Original) 8 Hour Arthritis Pain Reliever (14 sources) acetaminophen 325 mg / oxyCODONE hydrochloride 5 mg oral tablet (20 sources) Opioid Agonist Start: 06-05-2024 take 1 tablet by mouth once daily Oxycodone-Acetami nophen Active 1 TAB PO Daily June 05, 2024 Start: 05-07-2024 End: 06-05-2024 take 1 tablet by mouth once daily Oxycodone-Acetaminophen Discontinued 1 T AB PO Daily May 07, 2024 June 05, 2024 11:41am Start: 01-04-2024 End: 05-07-2024 take 1 tablet [...] Active Start: 07-17-2023 take 1 tablet by [facility] twice daily oxyCODONE-Acetaminophen 5-325 MG 1 table t Orally two times daily for 30 days Jul, Active Start: 05-22-2023 Start: 04-03-2023 take 1 tablet by [facility] twice daily oxyCODONE-Acetaminophen 5-325 MG 1 table t Orally two times daily for 30 days March, Active Start: 02-02-2023 take 1 tablet by [facility] twice daily oxyCODONE-Acetaminophen 5-325 MG 1 table t Orally two times daily for 30 days Jan, Active Start: 11-30-2022 take 1 tablet by [facility] twice daily oxyCODONE-Acetaminophen 5-325 MG 1 table [...] 12, 2021 12:00am June 19, 2021 3:13am ALPRAZolam 0.25 mg oral tablet (20 sources) Benzodiazepine Start: 06-05-2024 take 0.25 mg by mouth twice daily Alprazolam Active 0.25 MG PO Twice daily June 05, 2024 12:00am Start: 01-30-2024 End: 03-25-2024 take 0.25 mg [...] DAILY NEEDED *MUST LAST 30 DAYS* for Nov, Active Start: 10-02-2023 take 1 tablet [...] Active Start: 07-27-2022 take 1 tablet by [facility] three times daily as needed for anxiety [...] Refills(s) 0 Start Date: 03/07/21 Status: Ordered bifidobacterium infantis 4 mg oral capsule (1 source) Start: 06-05-2024 take 1 capsule by mouth once daily Bifidobacterium Infantis (Align) 4 mg capsule Active 4 MG PO Daily June 05, 2024 12:00am biotin 10 mg oral capsule (12 sources) Start: 06-05-2024 take 12700 ug by mouth once daily Biotin Active 15272 MCG PO daily June 05, 2024 12:00am Start: 01-17-2024 End: 04-03-2024 take 5 mg by mouth once daily Biotin Discontinued 5 MG PO Daily January 17, 2024 1:00am April 03, 2024 11:46am take 1 capsule by [facility] every twenty-four hours Biotin 5 MG 1 capsule Orally Once a day Active cholecalciferol 0.025 mg oral capsule (14 sources) Vitamin D Start: 06-05-2024 take 25 ug by mouth once daily Cholecalciferol (Vitamin D3) Active 25 MCG PO Daily June 05, 2024 12:00am Start: 01-17-2024 End: 06-05-2024 take 125 ug by mouth once daily Cholecalciferol (Vitamin D3) Discontinued 125 MCG PO Daily January 17, 2024 1:00am June 05, 2024 12:02pm take 1 capsule by [facility] every twenty-four hours Vitamin D3 125 MCG (5000 UT) 1 capsule Orally Once a day Active take 1 capsule by [facility] every twenty-four hours Vitamin D3 25 MCG (1000 UT) 1 capsule Orally Once a day Active cholestyramine resin 4000 mg powder for oral suspension (1 source) Bile Acid Sequestrant Start: 03-07-2021 Questran 4 g/9 g oral powder = 1 packet(s), Oral, Daily, # 30 EA, Refills(s) 11, Pharmacy: [id number], 165.1, cm, 03/07/21 13:49:00 EDT, Height/Length [...] 19, 2021 12:00am take 1 capsule by [facility] every twelve hours dilTIAZem HCl ER 120 MG 1 capsule Orally Twice a day Active famotidine 20 mg oral tablet (20 sources) Histamine-2 Receptor Antagonist Start: 01-17-2024 take 20 mg by mouth once daily at bedtime Famotidine Active 20 MG PO Daily at bedtime January 17, 2024 1:00am Start: 01-07-2023 take 1 tablet by [facility] every twenty-four hours Famotidine 20 MG 1 [...] Glucose Sensor (Freestyle Familia 2 Sensor) kit (3 sources) Start: 05-07-2024 Flash Glucose Sensor (Freestyle Familia 2 Sensor) kit Active 0 .Route 1 May 07, 2024 12:00am As directed 3 ml insulin glargine 100 unt/ml pen injector (20 sources) Insulin Analog Start: 06-05-2024 Insulin Glargi ne (Basaglar Kwikpen U-100 Insulin) 100 unit/mL (3 mL) insulin pen Active 20 UNIT SUBCUT Every evening June 05, 2024 12:00am Start: 03-25-2024 End: 04-03-2024 Insulin Glargine (Lantus Cha ostar U-100 Insulin) 100 unit/mL (3 mL) insulin [...] insulin isophane, human 100 unt/ml pen injector (7 sources) Start: 01-24-2024 inject 14 [IU] by [...] 90 Active Loperamide (14 sources) Opioid Agonist metoprolol tartrate 100 mg oral tablet (20 sources) beta-Adrenergic Khadijah Start: 05-27-2024 Metoprolol Tartrate Active 0 .ROUTE .COMPLEX May 27, 2024 3:55pm TAKE 1 AND 1/2 TABLETS TWICE DAILY Start: 02-19-2024 End: 05-27-2024 Metoprolol Tartrate Disconti nued 0 .ROUTE .COMPLEX February 19, 2024 2:51pm May 27, 2024 3:55pm TAKE 1 AND 1/2 TABLETS TWICE DAILY Start: 02-19-2024 Metoprolol Tar trate Active 0 .ROUTE .COMPLEX February 19, 2024 2:51pm TAKE 1 AND [...] tablet by joesph th every twenty-four hours pantoprazole 40 mg delayed release oral tablet [...] tablet Orally Once a day Active spironolactone 50 mg oral tablet (20 sources) Aldosterone Antagonist Start: 06-05-20 take 50 mg by mouth once daily Spironolactone Active 50 MG PO Daily June 05, 2024 12:00am Start: 01-17-2024 End: 05-07-2024 take 25 mg by mouth once daily Spironolactone Disconti nued 25 MG PO Daily January 17, 2024 1:00am May 07, 2024 12:01pm take 1 tablet by joesph th every twenty-four hours Spironolactone 25 MG 1 tablet Orally Once a day [...] capsule Orally Once a day Active Vitamins A,C,F-Gsyz-Fhaebu (Preservision Areds) 4,296 mcg-226 mg-90 mg capsule (7 sources) Start: 01-17-2024 take 1 capsule by mouth twice daily Vitamins A,C,Y-Buye-Iuecaa (Preservision Areds) 4,296 mcg-226 mg-90 mg capsule Active 1 CAP PO Twice daily January 17, 2024 1:00am Completed/Discontinued Medications Medication Drug Class(es) Dates Sig (Normalized) Sig (Original) [id number] 200 actuat albuterol 0.09 mg/actuat metered dose inhaler (12 sources) beta2-Adrenergic Agonist Start: 01-17-2024 End: 04-03-2024 take 1 puff(s) by inhalation every four hours Albuterol Sulfate Discontinued 2 PUFF INHALATION Every 4 hours January 17, 2024 1:00am April 03, 2024 11:36am Start: 10-18-2023 take 2 puff(s) by in halation every four hours as needed Albuterol Sulfate HFA 108 (90 Base) MCG/ACT 2 puff Inhalation every 4 hrs prn Oct, Active amitriptyline hydrochloride 10 mg oral tablet (12 sources) Tricyclic Antidepressant take 1 tablet by mouth every twenty-four hours Amitriptyline HCl 10 MG 1 tablet at bedtime Orally Once a day Not-Taking amylase 087606 unt / lipase 89539 unt / protease 70285 unt delayed release oral capsule (8 sources) Start: End: Fmpoda-Muhulxix-Vkn daisy (Creon) 24,000-76,000 -120,000 unit capsule,delayed release(DR/EC) Discontinued 1 - 2 CAP PO 1-2 TIMES DAILY June 11, 2021 12:00am June 19, 2021 3:12am Start: 05-10-2021 Creon 24,000 u nits oral delayed release capsule See Instructions, take 3 caps with each meal and 2 caps with each snack., # 390 caplet(s), Refills(s) 0, Pharmacy: [id number], 165.1, cm, 04/18/21 13:02:00 EDT, Height/Length Dosing, 116.4, kg, 04/18/21 13:02:00 EDT, Weight Dosing Start Date: 05/10/21 Status: Ordered carvedilol 6.25 mg oral tablet (7 sources) alpha-Adrenergic Khadijah, beta-Adrenergic Khadijah Start: 06-12-2021 End: 01-17-2024 take 6.25 mg by mouth twice daily at mealtime Carvedilol Discontinued 6.25 MG PO Twice daily with meals 60 June 12, 2021 12:00am January 17, 2024 5:18pm cefdinir 300 mg oral capsule (7 sources) Cephalosporin Antibacterial Start: 06-12-2021 End: 01-17-2024 [...] day Active fluconazole 100 mg oral tablet (7 sources) Azole Antifungal Start: 06-12-2021 End: 01-17-2024 take 100 mg by mouth once daily Fluconazole Discontinued 100 MG PO Daily 7 June 12, 2021 12:00am January 17, 2024 [...] Insulin) 100 unit/mL (3 mL) Insulin Pen (7 sources) Start: 06-12-2021 End: 01-15-2024 inject 14 [...] Insulin) 100 unit/mL (3 mL) insulin pen (14 sources) Start: 01-16-2024 End: 01-24-2024 inject 14 [...] 15, 2024 3:26pm January 16, 2024 3:13pm ketoconazole 20 mg/ml topical cream (7 sources) Azole Antifungal Start: 02-15-2024 End: 04-29-2024 Ketoconazole Discontinued 1 APPLIC TOPICAL Daily February 15, 2024 12:00am April 29, 2024 1:36pm ketorolac tromethamine 5 mg/ml ophthalmic solution (7 sources) Nonsteroidal Anti-inflammatory Drug, Cyclooxygenase Inhibitor Start: [...] tablet (20 sources) Nitroimidazole Antimicrobial Start: 04-10-2024 End: 06-05-2024 take 500 mg by mouth twice daily Metronidazole Discontinued 500 MG PO Twice daily April 10, 2024 12:00am June 05, 2024 12:06pm Start: 01-30-2024 End: 03-25-2024 take 1 tablet [...] Nystatin (20 sources) Polyene Antifungal Start: 04-29-2024 End: 06-05-2024 take 1 mL by mouth three times daily Nystatin Discontinued 1 ML PO Three times daily April 29, 2024 12:00am June 05, 2024 12:06pm swish and swallow Start: 04-29-2024 take 1 mL by mouth t hree times daily Nystatin Active 1 ML PO Three times daily April 29, 2024 12:00am swish and swallow Start: 01-17-2024 End: 06-05-2024 Nystatin Active 1 APPLIC TOP ICAL Twice daily June 05, 2024 12:06pm Nystatin [id number] UNIT/GM 1 application Externally Twice a day for 10 days Active Nystatin [id number] UNIT/GM 1 application Externally Twice a day for 10 days Active Wellman 1-Fqg-Szk-Fish Oil (Fish Oil) 1,000 mg (120 mg-180 mg) capsule (7 sources) Start: 01-17-2024 End: 04-03-2024 take 1 capsule by mouth once daily Wellman 9-Teb-Vkt-Fish Oil (Fish Oil) 1,000 mg (120 mg-180 mg) capsule Discontinued 1 CAP PO Daily January 17, 2024 1:00am April 03, 2024 11:49am Start: 01-17-2024 take 1 capsule by mo sdh once daily Wellman 1-Nzz-Slq-Fish Oil (Fish Oil) 1,000 mg (120 mg-180 mg) capsule Active 1 CAP PO Daily January 17, 2024 1:00am 24 hr oxybutynin chloride 10 mg extended release oral tablet (7 sources) Cholinergic Muscarinic Antagonist Start: 02-15-2024 End: 06-05-2024 take 10 mg by mouth once daily Oxybutynin Chloride Discontinued 10 MG PO Daily February 15, 2024 12:00am June 05, 2024 12:07pm selenomethionine 0.2 mg oral tablet (7 sources) Start: 01-17-2024 End: 04-03-2024 take 200 ug by mouth once daily Selenomethionine Discontinued 200 MCG PO Daily January 17, 2024 1:00am April 03, 2024 11:51am sucralfate 1000 mg oral tablet (18 sources) Aluminum Complex Start: 01-17-2024 End: 04-03-2024 [...] venlafaxine 37.5 mg extended release oral capsule (7 sources) Serotonin and Norepinephrine Reuptake Inhibitor Start: 06-11-2021 End: 01-17-2024 take 37.5 mg by mouth once daily Venlafaxine Discontinued 37.5 MG PO Daily June 11, 2021 12:00am January 17, 2024 5:18pm Problems Active Problems Problem Classification Problem Date Documented Date Episodic/Chronic Acute and unspecified renal failure (1 source) Acute kidney failure, unspecified Episodic Anxiety disorders (7 sources) Anxiety; Translations: [Anxiety disorder, unspecified] 01-30-2024 [...] Coronary arteriosclerosis; Translations: [Atherosclerotic heart disease of [place] coronary artery without angina pectoris] Onset: 3 01-17-2024 Chronic Coronary atherosclerosis and other heart disease (1 source) Coronary angioplasty status; Translations: [CORONARY ANGIOPLASTY STATUS] Onset: 3 Episodic Diabetes mellitus with complications (20 sources) Disorder of kidney due to diabetes mellitus; Translations: [Type 2 diabetes mellitus with diabetic chronic kidney disease] Onset: 3 07-27-2022 Chronic Diabetes mellitus without complication (11 sources) Diabetes mellitus; Translations: [Type 2 diabetes mellitus without complications] Onset: 2 07-27-2022 Chronic Diabetes mellitus without complication (7 sources) Hyperglycemia; Translations: [Hyperglycemia, unspecified] 06-12-2021 Episodic Disorders of lipid metabolism (4 sources) Hypercholesterolemia; Translations: [Hyperlipidemia] Onset: 3 07-27-2022 [...] Chronic Immunizations and screening for infectious disease (10 sources) Immunization due; Translations: [Encounter for immunization] 01-18-2024 Episodic Inflammation; infection of eye (except that caused by tuberculosis or sexually transmitteddisease) (7 sources) External hordeolum; Translations: [Hordeolum externum unspecified eye, unspecified eyelid] 01-18-2024 Episodic Intestinal infection (3 sources) Enterocolitis due to Clostridium difficile, not specified as recurrent Episodic Malaise and fatigue (1 source) Weakness Episodic Menopausal disorders (1 source) Hormone replacement therapy; Translations: [HORMONE REPLACEMENT THERAPY] Onset: 3 Episodic Mood disorders (1 source) Depressive disorder 07-27-2022 Chronic Mycoses (18 sources) Candidiasis of skin and nail; Translations: [...] Episodic Other aftercare (1 source) Other terminal clerk (current) drug therapy; Translations: [OTH GROUP HOME CURRENT DRUG THERAPY] Onset: 3 Episodic Other aftercare (1 source) FDC (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 anticoagulants; Translations: [GROUP HOME CURRNT USE 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] Onset: 3 Episodic Other [...] Chronic Other diseases of kidney and ureters (6 sources) Secondary hyperparathyroidism of renal origin; Translations: [Secondary hyperparathyroidism (of renal origin)] 03-25-2024 Chronic Other diseases of veins and lymphatics (7 sources) Lymphedema; Translations: [Lymphedema, not elsewhere classified] 01-17-2024 Chronic Other eye disorders (7 sources) Chalazion; Translations: [Chalazion right eye, unspecified [...] UNSPECIFIED] Onset: 2 Episodic Other gastrointestinal disorders (3 sources) Swollen abdomen; Translations: [Generalized intra-abdominal and pelvic swelling, mass and lump] 05-07-2024 Episodic Other gastrointestinal disorders (3 sources) Generalized intra-abdominal and pelvic swelling, mass and lump; Translations: [Abdominal or pelvic swelling, mass, or lump, generalized] 05-07-2024 Episodic Other lower respiratory disease (3 sources) Shortness of breath; Translations: [SHORTNESS OF BREATH] Onset: 3 Episodic Other lower respiratory disease (7 sources) Dyspnea; Translations: [Dyspnea, unspecified] 06-12-2021 Episodic [...] Chronic Other nutritional; endocrine; and metabolic disorders (7 sources) Intolerance to lactose; Translations: [Lactose intolerance, [...] Retinal detachments; defects; vascular occlusion; and retinopathy (8 sources) Unspecified macular degeneration; Translations: [Degenerative disorder [...] Spondylosis; intervertebral disc disorders; other back problems (11 sources) Chronic low back pain; Translations: [Post-surgery back pain] 07-27-2022 Episodic Syncope (7 sources) Near syncope; Translations: [Syncope and collapse] 06-19-2021 Episodic Thyroid disorders (13 sources) Hypothyroidism; Translations: [Hypothyroidism, unspecified] 07-27-2022 Chronic Unclassified (1 source) CONTACT W/AND (SUSP) EXPOS COVID-19; Translations: [CONTACT W/AND (SUSP) EXPOS COVID-19] Onset: 3 Unclassified (1 source) Low back pain, unspecified; Translations: [Low back pain, unspecified] Onset: 4 Urinary tract infections (6 sources) Urinary tract infectious disease; Translations: [Urinary tract infection, site not specified] 05-07-2024 Episodic Past or Other Problems Problem Classification Problem Date Documented Da te Episodic/Chronic Other aftercare (4 sources) FDC (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 insulin; Translations: [GROUP HOME CURRENT USE OF INSULIN] Onset: 3 Episodic [...] Range Facility Basophils Auto (Bld) [#/Vol] on 06-01-2024 Basophils (Bld) [#/Vol] 0.1 10 3/uL 0.0-0.1 [facility] Basophils/100 WBC Auto (Bld) on 06-01-2024 Basophils/100 WBC (Bld) 0.9 % 0.2-2.0 F [facility] Eosinophils/100 WBC Auto (Bl d)on 06-01-2024 Eosinophils/100 WBC (Bld) 1.2 % 0.9-7.0 [facility] Erythrocyte distribution wid th Auto (RBC) [Ratio]on 06-01-2024 Erythrocyte distribution width (RBC) [Ratio] 14.1 % 11.0-15.0 [facility] Estimated glomerular filtrat ion rate (GFR) non- Americanon 06-01-2024 GFR/1.73 sq M.predicted among non-blacks MDRD (S/P/Bld) [Vol rate/Area] 47 mL/min/{1.73_m2} Low >=60 [facility] Globulin Calc (S) [Mass/Vol] on 06-01-2024 Globulin (S) [Mass/Vol] 4.4 g/dL F [facility] Hematocrit Auto (Bld) [Volum e fraction]on 06-01-2024 Hematocrit (Bld) [Volume fraction] 37.6 % 36.0-48.0 [facility] Hemoglobin [Mass/volume] in Bloodon 06-01-2024 Hemoglobin (Bld) [Mass/Vol] 12.5 g/dL 12.0-16.0 [facility] Laboratory - Chemistry and C hemistry - challengeon 06-01-2024 Albumin [Mass/Vol] 2.7 g/dL Low 3.4-5.0 [facility] ALP [Catalytic activity/Vol] 87 U/L 46-116 [facility] ALT [Catalytic activity/Vol] 18 U/L 14-59 [facility] AST [Catalytic activity/Vol] 16 U/L 15-37 [facility] Bilirubin [Mass/Vol] 0.5 mg/dL 0.2-1.0 [facility] Calcium [Mass/Vol] 8.7 mg/dL 8.5-10.1 [facility] Chloride [Moles/Vol] 101 mmol/L 98-107 [facility] CO2 [Moles/Vol] 28.9 mmol/L 21.0-32.0 [facility] Creatinine [Mass/Vol] 1.12 mg/dL High 0.55-1.02 [facility] GFR/1.73 sq M.predicted MDRD (S/P/Bld) [Vol rate/Area] 57 mL/min/{1.73_m2} Low >=60 [facility] Glucose [Mass/Vol] 232 mg/dL High 74-106 [facility] Potassium [Moles/Vol] 4.1 mmol/L 3.5-5.1 [facility] Protein [Mass/Vol] 7.1 g/dL 6.4-8.2 [facility] Sodium [Moles/Vol] 137 mmol/L 136-145 [facility] Urea nitrogen [Mass/Vol] 23.0 mg/dL High 7.0-18.0 [facility] Urea nitrogen/Creatinine [Mass ratio] 20.5 mg/mg [facility] Laboratory - Hematology and Cell countson 06-01-2024 Immature granulocytes/100 WBC (Bld) 0.2 % 0.0-0.5 [facility] Leukocytes [#/volume] correc gali for nucleated erythrocytes in Blood by Automated counon 06-01-2024 WBC corrected for nucl RBC Auto (Bld) [#/Vol] 9.0 10 3/uL 4.0-11.0 [facility] Lymphocytes Auto (Bld) [#/Vo l]on 06-01-2024 Lymphocytes (Bld) [#/Vol] 1.4 10 3/uL 1.2-3.8 [facility] Lymphocytes/100 WBC Auto (Bl d)on 06-01-2024 Lymphocytes/100 WBC (Bld) 15.9 % Low 20.5-60.0 [facility] MCH Auto (RBC) [Entitic mass ]on 06-01-2024 MCH (RBC) [Entitic mass] 29.5 pg 26.7-34.0 [facility] MCHC Auto (RBC) [Mass/Vol]on 06-01-2024 MCHC (RBC) [Mass/Vol] 33.2 g/dL 29.9-35.2 [facility] MCV Auto (RBC) [Entitic vol] on 06-01-2024 MCV (RBC) [Entitic vol] 88.7 fL 81.0-99.0 F [facility] Monocytes Auto (Bld) [#/Vol] on 06-01-2024 Monocytes (Bld) [#/Vol] 0.8 10 3/uL 0.3-0.8 [facility] Monocytes/100 WBC Auto (Bld) on 06-01-2024 Monocytes/100 WBC (Bld) 8.5 % 1.7-12.0 [facility] Neutrophils Auto (Bld) [#/Vo l]on 06-01-2024 Neutrophils (Bld) [#/Vol] 6.6 10 3/uL High 1.4-6.5 [facility] Neutrophils/100 WBC Auto (Bl d)on 06-01-2024 Neutrophils/100 WBC (Bld) 73.3 % 43.0-75.0 [facility] No Panel Informationon 06-01 Eosinophils # (Auto) 0.1 10 3/uL 0.0-0.7 [facility] Immature Granulocyte # (Auto) 0.02 10 3/uL 0.00-0.03 [facility] Platelet mean volume Auto (B ld) [Entitic vol]on 06-01-2024 Platelet mean volume (Bld) [Entitic vol] 11.1 fL 9.5-13.5 [facility] Platelets Auto (Bld) [#/Vol] on 06-01-2024 Platelets (Bld) [#/Vol] 162 10 3/uL 150-450 [facility] RBC Auto (Bld) [#/Vol]on RBC (Bld) [#/Vol] 4.24 10 6/uL 4.20-5.40 [facility] Serum or plasma albumin/glob ulin mass ratioon 06-01-2024 Albumin/Globulin [Mass ratio] 0.6 {ratio} [facility] Serum or plasma anion gap de terminationon 06-01-2024 Anion gap [Moles/Vol] 11.2 mmol/L [facility] Basophils Auto (Bld) [#/Vol] on 05-26-2024 Basophils (Bld) [#/Vol] 0.1 10 3/uL 0.0-0.1 [facility] Basophils/100 WBC Auto (Bld) on 05-26-2024 Basophils/100 WBC (Bld) 1.1 % 0.2-2.0 [facility] Eosinophils/100 WBC Auto (Bl d)on 05-26-2024 Eosinophils/100 WBC (Bld) 2.1 % 0.9-7.0 [facility] Erythrocyte distribution wid th Auto (RBC) [Ratio]on 05-26-2024 Erythrocyte distribution width (RBC) [Ratio] 14.0 % 11.0-15.0 [facility] Estimated glomerular filtrat ion rate (GFR) non- Americanon 05-26-2024 GFR/1.73 sq M.predicted among non-blacks MDRD (S/P/Bld) [Vol rate/Area] 40 mL/min/{1.73_m2} Low >=60 [facility] Globulin Calc (S) [Mass/Vol] on 05-26-2024 Globulin (S) [Mass/Vol] 4.4 g/dL F [facility] Hematocrit Auto (Bld) [Volum e fraction]on 05-26-2024 Hematocrit (Bld) [Volume fraction] 35.9 % Low 36.0-48.0 [facility] Hemoglobin [Mass/volume] in Bloodon 05-26-2024 Hemoglobin (Bld) [Mass/Vol] 12.0 g/dL 12.0-16.0 [facility] Laboratory - Chemistry and C hemistry - challengeon 05-26-2024 Albumin [Mass/Vol] 2.7 g/dL Low 3.4-5.0 [facility] ALP [Catalytic activity/Vol] 88 U/L 46-116 [facility] ALT [Catalytic activity/Vol] 20 U/L 14-59 [facility] AST [Catalytic activity/Vol] 12 U/L Low 15-37 [facility] Bilirubin [Mass/Vol] 0.5 mg/dL 0.2-1.0 [facility] Calcium [Mass/Vol] 8.9 mg/dL 8.5-10.1 [facility] Chloride [Moles/Vol] 104 mmol/L 98-107 [facility] CO2 [Moles/Vol] 26.7 mmol/L 21.0-32.0 [facility] Creatinine [Mass/Vol] 1.29 mg/dL High 0.55-1.02 [facility] Free T4 [Mass/Vol] 1.19 ng/dL 0.76-1.46 [facility] GFR/1.73 sq M.predicted MDRD (S/P/Bld) [Vol rate/Area] 49 mL/min/{1.73_m2} Low >=60 [facility] Glucose [Mass/Vol] 233 mg/dL High 74-106 [facility] Natriuretic peptide B (Bld) [Mass/Vol] 2687.0 pg/mL High <=1800.0 [facility] Comment on above: RESULTS CALLED TO DR Miranda HENNING IN ER BY Mira Edwards [id number] Potassium [Moles/Vol] 4.0 mmol/L 3.5-5.1 [facility] Protein [Mass/Vol] 7.1 g/dL 6.4-8.2 [facility] Sodium [Moles/Vol] 140 mmol/L 136-145 [facility] TSH Qn 4.487 m[IU]/L High 0.358-3.740 [facility] Urea nitrogen [Mass/Vol] 33.0 mg/dL High 7.0-18.0 [facility] Urea nitrogen/Creatinine [Mass ratio] 25.6 mg/mg [facility] Laboratory - Hematology and Cell countson 05-26-2024 Immature granulocytes/100 WBC (Bld) 0.1 % 0.0-0.5 [facility] Laboratory - Microbiology an d Antimicrobial susceptibilityon 05-26-2024 S. pyogenes Ag Ql (Unsp spec) Negative [facility] SARS-CoV-2 (COVID-19) RNA FERN+probe Ql (Unsp spec) Not detected NOT DETECTE [facility] Comment on above: THIS TEST IS NOT PEREZ ROVDED BY THE FDA. It has beenauthorized for use under an Emergency Use Authorization. Leukocytes [#/volume] correc gali for nucleated erythrocytes in Blood by Automated counon 05-26-2024 WBC corrected for nucl RBC Auto (Bld) [#/Vol] 7.3 10 3/uL 4.0-11.0 [facility] Lymphocytes Auto (Bld) [#/Vo l]on 05-26-2024 Lymphocytes (Bld) [#/Vol] 1.3 10 3/uL 1.2-3.8 [facility] Lymphocytes/100 WBC Auto (Bl d)on 05-26-2024 Lymphocytes/100 WBC (Bld) 18.4 % Low 20.5-60.0 [facility] MCH Auto (RBC) [Entitic mass ]on 05-26-2024 MCH (RBC) [Entitic mass] 30.4 pg 26.7-34.0 [facility] MCHC Auto (RBC) [Mass/Vol]on 05-26-2024 MCHC (RBC) [Mass/Vol] 33.4 g/dL 29.9-35.[address] [facility] MCV Auto (RBC) [Entitic vol] on 05-26-2024 MCV (RBC) [Entitic vol] 90.9 fL 81.0-99.0 [facility] Monocytes Auto (Bld) [#/Vol] on 05-26-2024 Monocytes (Bld) [#/Vol] 0.7 10 3/uL 0.3-0.8 [facility] Monocytes/100 WBC Auto (Bld) on 05-26-2024 Monocytes/100 WBC (Bld) 9.5 % 1.7-12.0 [facility] Neutrophils Auto (Bld) [#/Vo l]on 05-26-2024 Neutrophils (Bld) [#/Vol] 5.0 10 3/uL 1.4-6.5 [facility] Neutrophils/100 WBC Auto (Bl d)on 05-26-2024 Neutrophils/100 WBC (Bld) 68.8 % 43.0-75.0 [facility] No Panel Informationon 05-26 Eosinophils # (Auto) 0.2 10 3/uL 0.0-0.[address] [facility] Immature Granulocyte # (Auto) 0.01 10 3/uL 0.00-0.03 [facility] Monoscreen Negative NEGATIVE [facility] Troponin I High Sensitivity 14.9 pg/mL 4.0-51.3 [facility] Comment on above: CUT-OFF POINTS HAVE BEEN ESTABLISHED BASED ON THE FOURTHIVERSAL DEFINITION OF MYOCARDIAL INFARCTION. THE UPPERREFERENCE LIMIT (URL) OF TROPONIN, DEFINED THE 99THPERCENTILE OF cTnI DISTRIBUTION IN A REFERENCE POPULATION,HAS BEEN CONFIRMED THE DECISION THRESHOLD FOR MIDIAGNOSIS.99TH PERCENTILE = 51.4 PG/MLNOTE: HIGH-SENSITIVITY TROPONIN ASSAY IS NOT INTENDED TO BEUSED IN ISOLATION BUT SHOULD BE INTERPRETED IN CONJUNCTIONWITH OTHER DIAGNOSTIC AND CLINICAL INFORMATION. Platelet mean volume Auto (B ld) [Entitic vol]on 05-26-2024 Platelet mean volume (Bld) [Entitic vol] 10.6 fL 9.5-13.5 [facility] Platelets Auto (Bld) [#/Vol] on 05-26-2024 Platelets (Bld) [#/Vol] 215 10 3/uL 150-450 [facility] RBC Auto (Bld) [#/Vol]on RBC (Bld) [#/Vol] 3.95 10 6/uL Low 4.20-5.40 [facility] Serum or plasma albumin/glob ulin mass ratioon 05-26-2024 Albumin/Globulin [Mass ratio] 0.6 {ratio} [facility] Serum or plasma anion gap de terminationon 05-26-2024 Anion gap [Moles/Vol] 13.3 mmol/L Fi [facility] ECG 12 lead ECGon 05-22-2024 ECG 12 lead ECG [address] [place] [address] Electrocardiograph Report Signed Patient: Joe Call MR#: [id number] 0 : 1945 Acct:[id number] Age/Sex: 78 / F ADM Date: 05/22/24 Loc: ER Room: Type: [facility] ER Attending Dr: Ordering Provider: Jesus [...] Sinus bradycardia Confirmed by Daniele Jane DO ([id number]) on 05/22/2024 4:08:55 PM Referred By: Electronically Signed By: Daniele Jane DO Transcribed By: MUS Signed By Daniele Jane DO [id number] Normal [facility] Estimated glomerular filtrat ion rate (GFR) non- Americanon 05-20-2024 GFR/1.73 sq M.predicted among non-blacks MDRD (S/P/Bld) [Vol rate/Area] 39 mL/min/{1.73_m2} Low >=60 [facility] Laboratory - Chemistry and C hemistry - challengeon 05-20-2024 Calcium [Mass/Vol] 8.8 mg/dL 8.5-10.1 [facility] Chloride [Moles/Vol] 103 mmol/L 98-107 [facility] CO2 [Moles/Vol] 24.3 mmol/L 21.0-32.0 [facility] Creatinine [Mass/Vol] 1.32 mg/dL High 0.55-1.02 [facility] GFR/1.73 sq M.predicted MDRD (S/P/Bld) [Vol rate/Area] 47 mL/min/{1.73_m2} Low >=60 [facility] Glucose [Mass/Vol] 243 mg/dL High 74-106 [facility] Potassium [Moles/Vol] 5.0 mmol/L 3.5-5.[address] [facility] Sodium [Moles/Vol] 138 mmol/L 136-145 [facility] Urea nitrogen [Mass/Vol] 35.0 mg/dL High 7.0-18.0 [facility] Urea nitrogen/Creatinine [Mass ratio] 26.5 mg/mg [facility] Serum or plasma anion gap de terminationon 05-20-2024 Anion gap [Moles/Vol] 15.7 mmol/L [facility] Basophils Auto (Bld) [#/Vol] on 05-06-2024 Basophils (Bld) [#/Vol] 0.1 10 3/uL 0.0-0.1 [facility] Basophils/100 WBC Auto (Bld) on 05-06-2024 Basophils/100 WBC (Bld) 0.9 % 0.2-2.0 [facility] Eosinophils/100 WBC Auto (Bl d)on 05-06-2024 Eosinophils/100 WBC (Bld) 2.7 % 0.9-7.0 [facility] Erythrocyte distribution wid th Auto (RBC) [Ratio]on 05-06-2024 Erythrocyte distribution width (RBC) [Ratio] 13.5 % 11.0-15.0 [facility] Estimated glomerular filtrat ion rate (GFR) non- Americanon 05-06-2024 GFR/1.73 sq M.predicted among non-blacks MDRD (S/P/Bld) [Vol rate/Area] 32 mL/min/{1.73_m2} Low >=60 [facility] Globulin Calc (S) [Mass/Vol] on 05-06-2024 Globulin (S) [Mass/Vol] 4.3 g/dL [facility] Hematocrit Auto (Bld) [Volum e fraction]on 05-06-2024 Hematocrit (Bld) [Volume fraction] 34.6 % Low 36.0-48.0 [facility] Hemoglobin [Mass/volume] in Bloodon 05-06-2024 Hemoglobin (Bld) [Mass/Vol] 11.1 g/dL Low 12.0-16.0 [facility] Laboratory - Chemistry and C hemistry - challengeon 05-06-2024 Albumin [Mass/Vol] 2.5 g/dL Low 3.4-5.0 [facility] ALP [Catalytic activity/Vol] 75 U/L 46-116 [facility] ALT [Catalytic activity/Vol] 16 U/L 14-59 [facility] AST [Catalytic activity/Vol] 11 U/L Low 15-37 [facility] Bilirubin [Mass/Vol] 0.4 mg/dL 0.2-1.0 [facility] Calcium [Mass/Vol] 8.4 mg/dL Low 8.5-10.1 [facility] Chloride [Moles/Vol] 107 mmol/L 98-107 [facility] CO2 [Moles/Vol] 25.7 mmol/L 21.0-32.0 [facility] Creatinine [Mass/Vol] 1.58 mg/dL High 0.55-1.02 [facility] GFR/1.73 sq M.predicted MDRD (S/P/Bld) [Vol rate/Area] 38 mL/min/{1.73_m2} Low >=60 [facility] Glucose [Mass/Vol] 146 mg/dL High 74-106 [facility] Magnesium [Mass/Vol] 1.6 mg/dL Low 1.8-2.4 [facility] Natriuretic peptide B (Bld) [Mass/Vol] 2762.0 pg/mL High <=1800.0 [facility] Comment on above: RESULTS CALLED TO CLARITZA SELLERS RN @BY Alla Venegas at 0557 Potassium [Moles/Vol] 4.1 mmol/L 3.5-5.1 [facility] Protein [Mass/Vol] 6.8 g/dL 6.4-8.2 [facility] Sodium [Moles/Vol] 141 mmol/L 136-145 [facility] Urea nitrogen [Mass/Vol] 49.0 mg/dL High 7.0-18.0 [facility] Urea nitrogen/Creatinine [Mass ratio] 31.0 mg/mg [facility] Laboratory - Hematology and Cell countson 05-06-2024 Immature granulocytes/100 WBC (Bld) 0.1 % 0.0-0.5 [facility] Leukocytes [#/volume] correc gali for nucleated erythrocytes in Blood by Automated counon 05-06-2024 WBC corrected for nucl RBC Auto (Bld) [#/Vol] 6.7 10 3/uL 4.0-11.0 [facility] Lymphocytes Auto (Bld) [#/Vo l]on 05-06-2024 Lymphocytes (Bld) [#/Vol] 1.5 10 3/uL 1.2-3.8 [facility] Lymphocytes/100 WBC Auto (Bl d)on 05-06-2024 Lymphocytes/100 WBC (Bld) 21.8 % 20.5-60.0 [facility] MCH Auto (RBC) [Entitic mass ]on 05-06-2024 MCH (RBC) [Entitic mass] 29.0 pg 26.7-34.0 [facility] MCHC Auto (RBC) [Mass/Vol]on 05-06-2024 MCHC (RBC) [Mass/Vol] 32.1 g/dL 29.9-35.[address] [facility] MCV Auto (RBC) [Entitic vol] on 05-06-2024 MCV (RBC) [Entitic vol] 90.3 fL 81.0-99.0 [facility] Monocytes Auto (Bld) [#/Vol] on 05-06-2024 Monocytes (Bld) [#/Vol] 0.7 10 3/uL 0.3-0.8 [facility] Monocytes/100 WBC Auto (Bld) on 05-06-2024 Monocytes/100 WBC (Bld) 10.6 % 1.7-12.0 [facility] Neutrophils Auto (Bld) [#/Vo l]on 05-06-2024 Neutrophils (Bld) [#/Vol] 4.3 10 3/uL 1.4-6.5 [facility] Neutrophils/100 WBC Auto (Bl d)on 05-06-2024 Neutrophils/100 WBC (Bld) 63.9 % 43.0-75.0 [facility] No Panel Informationon 05-06 Eosinophils # (Auto) 0.2 10 3/uL 0.0-0.7 [facility] Immature Granulocyte # (Auto) 0.01 10 3/uL 0.00-0.03 [facility] Troponin I High Sensitivity 13.2 pg/mL 4.0-51.3 [facility] Comment on above: CUT-OFF POINTS HAVE BEEN [...] volume (Bld) [Entitic vol] 11.3 fL 9.5-13.5 [facility] Platelets Auto (Bld) [#/Vol] on 05-06-2024 Platelets (Bld) [#/Vol] 146 10 3/uL Low 150-450 [facility] RBC Auto (Bld) [#/Vol]on RBC (Bld) [#/Vol] 3.83 10 6/uL Low 4.20-5.40 [facility] Serum or plasma albumin/glob ulin mass ratioon 05-06-2024 Albumin/Globulin [Mass ratio] 0.6 {ratio} [facility] Serum or plasma anion gap de terminationon 05-06-2024 Anion gap [Moles/Vol] 12.4 mmol/L [facility] Basophils Auto (Bld) [#/Vol] on 05-05-2024 Basophils (Bld) [#/Vol] 0.1 10 3/uL 0.0-0.1 [facility] Basophils/100 WBC Auto (Bld) on 05-05-2024 Basophils/100 WBC (Bld) 0.9 % 0.2-2.0 [facility] Eosinophils/100 WBC Auto (Bl d)on 05-05-2024 Eosinophils/100 WBC (Bld) 1.9 % 0.9-7.0 [facility] Erythrocyte distribution wid th Auto (RBC) [Ratio]on 05-05-2024 Erythrocyte distribution width (RBC) [Ratio] 13.4 % 11.0-15.0 [facility] Estimated glomerular filtrat ion rate (GFR) non- Americanon 05-05-2024 GFR/1.73 sq M.predicted among non-blacks MDRD (S/P/Bld) [Vol rate/Area] 29 mL/min/{1.73_m2} Low >=60 [facility] Globulin Calc (S) [Mass/Vol] on 05-05-2024 Globulin (S) [Mass/Vol] 4.4 g/dL [facility] Hematocrit Auto (Bld) [Volum e fraction]on 05-05-2024 Hematocrit (Bld) [Volume fraction] 33.8 % Low 36.0-48.0 [facility] Hemoglobin [Mass/volume] in Bloodon 05-05-2024 Hemoglobin (Bld) [Mass/Vol] 11.1 g/dL Low 12.0-16.0 [facility] Laboratory - Chemistry and C hemistry - challengeon 05-05-2024 Albumin [Mass/Vol] 2.6 g/dL Low 3.4-5.0 [facility] ALP [Catalytic activity/Vol] 74 U/L 46-116 [facility] ALT [Catalytic activity/Vol] 17 U/L 14-59 [facility] AST [Catalytic activity/Vol] 12 U/L Low 15-37 [facility] Bilirubin [Mass/Vol] 0.4 mg/dL 0.2-1.0 [facility] Calcium [Mass/Vol] 6.1 mg/dL Low 8.5-10.1 [facility] Chloride [Moles/Vol] 105 mmol/L 98-107 [facility] CO2 [Moles/Vol] 24.1 mmol/L 21.0-32.0 [facility] Creatinine [Mass/Vol] 1.71 mg/dL High 0.55-1.02 [facility] GFR/1.73 sq M.predicted MDRD (S/P/Bld) [Vol rate/Area] 35 mL/min/{1.73_m2} Low >=60 [facility] Glucose [Mass/Vol] 202 mg/dL High 74-106 [facility] Magnesium [Mass/Vol] 1.5 mg/dL Low 1.8-2.4 [facility] Natriuretic peptide B (Bld) [Mass/Vol] 2725.0 pg/mL High <=1800.0 [facility] Comment on above: RESULTS CALLED TO Frances Bryant (N)@BY Franchesca Huynh MLT at 0547 Potassium [Moles/Vol] 5.9 mmol/L High 3.5-5.1 [facility] Protein [Mass/Vol] 7.0 g/dL 6.4-8.2 [facility] Sodium [Moles/Vol] 139 mmol/L 136-145 [facility] Urea nitrogen [Mass/Vol] 69.0 mg/dL High 7.0-18.0 [facility] Urea nitrogen/Creatinine [Mass ratio] 40.4 mg/mg [facility] Laboratory - Hematology and Cell countson 05-05-2024 Immature granulocytes/100 WBC (Bld) 0.3 % 0.0-0.5 [facility] Leukocytes [#/volume] correc gali for nucleated erythrocytes in Blood by Automated counon 05-05-2024 WBC corrected for nucl RBC Auto (Bld) [#/Vol] 6.9 10 3/uL 4.0-11.0 [facility] Lymphocytes Auto (Bld) [#/Vo l]on 05-05-2024 Lymphocytes (Bld) [#/Vol] 1.2 10 3/uL 1.2-3.8 [facility] Lymphocytes/100 WBC Auto (Bl d)on 05-05-2024 Lymphocytes/100 WBC (Bld) 18.0 % Low 20.5-60.0 [facility] MCH Auto (RBC) [Entitic mass ]on 05-05-2024 MCH (RBC) [Entitic mass] 29.3 pg 26.7-34.0 [facility] MCHC Auto (RBC) [Mass/Vol]on 05-05-2024 MCHC (RBC) [Mass/Vol] 32.8 g/dL 29.9-35.2 [facility] MCV Auto (RBC) [Entitic vol] on 05-05-2024 MCV (RBC) [Entitic vol] 89.2 fL 81.0-99.0 [facility] Monocytes Auto (Bld) [#/Vol] on 05-05-2024 Monocytes (Bld) [#/Vol] 0.6 10 3/uL 0.3-0.8 [facility] Monocytes/100 WBC Auto (Bld) on 05-05-2024 Monocytes/100 WBC (Bld) 8.7 % 1.7-12.0 [facility] Neutrophils Auto (Bld) [#/Vo l]on 05-05-2024 Neutrophils (Bld) [#/Vol] 4.8 10 3/uL 1.4-6.5 [facility] Neutrophils/100 WBC Auto (Bl d)on 05-05-2024 Neutrophils/100 WBC (Bld) 70.2 % 43.0-75.0 [facility] No Panel Informationon 05-05 Eosinophils # (Auto) 0.1 10 3/uL 0.0-0.7 [facility] Immature Granulocyte # (Auto) 0.02 10 3/uL 0.00-0.03 [facility] Troponin I High Sensitivity 14.0 pg/mL 4.0-51.3 [facility] Comment on above: CUT-OFF POINTS HAVE BEEN [...] volume (Bld) [Entitic vol] 11.8 fL 9.5-13.5 [facility] Platelets Auto (Bld) [#/Vol] on 05-05-2024 Platelets (Bld) [#/Vol] 173 10 3/uL 150-450 [facility] RBC Auto (Bld) [#/Vol]on RBC (Bld) [#/Vol] 3.79 10 6/uL Low 4.20-5.40 [facility] Serum or plasma albumin/glob ulin mass ratioon 05-05-2024 Albumin/Globulin [Mass ratio] 0.6 {ratio} [facility] Serum or plasma anion gap de terminationon 05-05-2024 Anion gap [Moles/Vol] 15.8 mmol/L [facility] Basophils Auto (Bld) [#/Vol] on 05-04-2024 Basophils (Bld) [#/Vol] 0.1 10 3/uL 0.0-0.1 [facility] Basophils/100 WBC Auto (Bld) on 05-04-2024 Basophils/100 WBC (Bld) 0.9 % 0.2-2.0 [facility] Eosinophils/100 WBC Auto (Bl d)on 05-04-2024 Eosinophils/100 WBC (Bld) 1.7 % 0.9-7.0 [facility] Erythrocyte distribution wid th Auto (RBC) [Ratio]on 05-04-2024 Erythrocyte distribution width (RBC) [Ratio] 13.6 % 11.0-15.0 [facility] Estimated glomerular filtrat ion rate (GFR) non- Americanon 05-04-2024 GFR/1.73 sq M.predicted among non-blacks MDRD (S/P/Bld) [Vol rate/Area] 21 mL/min/{1.73_m2} Low >=60 [facility] Globulin Calc (S) [Mass/Vol] on 05-04-2024 Globulin (S) [Mass/Vol] 4.9 g/dL [facility] Hematocrit Auto (Bld) [Volum e fraction]on 05-04-2024 Hematocrit (Bld) [Volume fraction] 37.6 % 36.0-48.0 [facility] Hemoglobin [Mass/volume] in Bloodon 05-04-2024 Hemoglobin (Bld) [Mass/Vol] 12.0 g/dL 12.0-16.0 [facility] Laboratory - Chemistry and C hemistry - challengeon 05-04-2024 Bilirubin Ql (U) Negative NEGATIVE [facility] Glucose (U) [Mass/Vol] 250 mg/dL Abnormal NEGATIVE [facility] Ketones Ql (U) Negative NEGATIVE [facility] pH (U) 6.0 [pH] 5.0-9.0 [facility] Specific gravity (U) [Rel density] 1.015 1.005-1.025 [facility] Urobilinogen Qn (U) 0.2 {Meka'U}/dL 0.2-1.0 [facility] Albumin [Mass/Vol] 2.8 g/dL Low 3.4-5.0 [facility] ALP [Catalytic activity/Vol] 86 U/L 46-116 [facility] ALT [Catalytic activity/Vol] 16 U/L 14-59 [facility] Ammonia (P) [Moles/Vol] 12 umol/L 11-32 [facility] AST [Catalytic activity/Vol] 8 U/L Low 15-37 [facility] Bilirubin [Mass/Vol] 0.4 mg/dL 0.2-1.0 [facility] Calcium [Mass/Vol] 8.8 mg/dL 8.5-10.1 [facility] Chloride [Moles/Vol] 101 mmol/L 98-107 [facility] CO2 [Moles/Vol] 22.4 mmol/L 21.0-32.0 [facility] Creatinine [Mass/Vol] 2.24 mg/dL High 0.55-1.02 [facility] GFR/1.73 sq M.predicted MDRD (S/P/Bld) [Vol rate/Area] 26 mL/min/{1.73_m2} Low >=60 [facility] Glucose [Mass/Vol] 369 mg/dL High 74-106 [facility] Lactate [Moles/Vol] 1.2 mmol/L 0.4-2.0 [facility] Magnesium [Mass/Vol] 1.7 mg/dL Low 1.8-2.4 [facility] Natriuretic peptide B (Bld) [Mass/Vol] 2342.0 pg/mL High <=1800.0 [facility] Comment on above: RESULTS CALLED TO ER Rebecca RenteriaRN @BY Andrea Moncada, MLTat 1126 Potassium [Moles/Vol] 5.6 mmol/L High 3.5-5.1 [facility] Protein [Mass/Vol] 7.7 g/dL 6.4-8.2 [facility] Sodium [Moles/Vol] 134 mmol/L Low 136-145 [facility] T4 [Mass/Vol] 11.80 ug/dL 4.80-13.90 [facility] TSH Qn 0.933 m[IU]/L 0.358-3.740 [facility] Urea nitrogen [Mass/Vol] 86.0 mg/dL High 7.0-18.0 [facility] Comment on above: RESULTS CALLED TO RENETTA Renteria RN @BY Andrea Hiren [facility], MLTat 1126 Urea nitrogen/Creatinine [Mass ratio] 38.4 mg/mg [facility] Laboratory - Hematology and Cell countson 05-04-2024 Immature granulocytes/100 WBC (Bld) 0.3 % 0.0-0.5 [facility] Laboratory - Microbiology an d Antimicrobial susceptibilityOrdered By: Carl Morales on 05-04-2024 Bacteria identified Cx Nom (U) [facility] Laboratory - Specimen inform ationon 05-04-2024 Appearance (U) SLIGHTLY CLOUDY Abnormal CLEAR [facility] Color (U) YELLOW YELLOW [facility] Laboratory - Urinalysison Hyaline casts LM Ql (Urine sed) RARE [facility] Leukocyte esterase Test strip Ql (U) Negative NEGATIVE [facility] Mucus Ql (Urine sed) NONE SEEN NONE SEEN [facility] Nitrite Ql (U) Negative NEGATIVE [facility] Protein Ql (U) 100 mg/dL Abnormal NEG/TRACE [facility] Leukocytes [#/volume] correc gali for nucleated erythrocytes in Blood by Automated counon 05-04-2024 WBC corrected for nucl RBC Auto (Bld) [#/Vol] 6.9 10 3/uL 4.0-11.0 [facility] Lymphocytes Auto (Bld) [#/Vo l]on 05-04-2024 Lymphocytes (Bld) [#/Vol] 1.2 10 3/uL 1.2-3.8 [facility] Lymphocytes/100 WBC Auto (Bl d)on 05-04-2024 Lymphocytes/100 WBC (Bld) 17.8 % Low 20.5-60.0 [facility] MCH Auto (RBC) [Entitic mass ]on 05-04-2024 MCH (RBC) [Entitic mass] 29.3 pg 26.7-34.0 [facility] MCHC Auto (RBC) [Mass/Vol]on 05-04-2024 MCHC (RBC) [Mass/Vol] 31.9 g/dL 29.9-35.[address] [facility] MCV Auto (RBC) [Entitic vol] on 05-04-2024 MCV (RBC) [Entitic vol] 91.9 fL 81.0-99.0 [facility] Monocytes Auto (Bld) [#/Vol] on 05-04-2024 Monocytes (Bld) [#/Vol] 0.7 10 3/uL 0.3-0.8 [facility] Monocytes/100 WBC Auto (Bld) on 05-04-2024 Monocytes/100 WBC (Bld) 10.4 % 1.7-12.0 [facility] Neutrophils Auto (Bld) [#/Vo l]on 05-04-2024 Neutrophils (Bld) [#/Vol] 4.8 10 3/uL 1.4-6.5 [facility] Neutrophils/100 WBC Auto (Bl d)on 05-04-2024 Neutrophils/100 WBC (Bld) 68.9 % 43.0-75.0 [facility] No Panel Informationon 05-04 Acetone Level Negative NEGATIVE [facility] Urine Bacteria MODERATE #/HPF Abnormal NONE SEEN [facility] Urine Culture Reflexed ALREADY ORDERED [facility] Urine Microscopic Review YES [facility] Urine Occult Blood MODERATE Abnormal NEGATIVE [facility] Urine Other Casts SEEN #/LPF Abnormal NONE SEEN [facility] Urine Other Crystals None Seen #/HPF None Seen [facility] Urine RBC 2-5 #/HPF Abnormal 0-2 [facility] Urine Squamous Epithelial Cells FEW #/LPF Abnormal NONE/RARE [facility] Urine WBC 2-5 #/HPF Abnormal NONE SEEN [facility] Eosinophils # (Auto) 0.1 10 3/uL 0.0-0.7 [facility] Immature Granulocyte # (Auto) 0.02 10 3/uL 0.00-0.03 [facility] Troponin I High Sensitivity 10.5 pg/mL 4.0-51.3 [facility] Comment on above: CUT-OFF POINTS HAVE BEEN [...] Partial Pressure CO2 38.5 mm[Hg] Low 40.0-52.0 [facility] Venous Blood pH 7.353 7.330-7.430 [facility] No Panel InformationOrdered By: LAMINE SINGH on 05-04-2024 Blood Culture 1 [facility] Platelet mean volume Auto (B ld) [Entitic vol]on 05-04-2024 Platelet mean volume (Bld) [Entitic vol] 11.4 fL 9.5-13.5 [facility] Platelets Auto (Bld) [#/Vol] on 05-04-2024 Platelets (Bld) [#/Vol] 160 10 3/uL 150-450 [facility] RBC Auto (Bld) [#/Vol]on RBC (Bld) [#/Vol] 4.09 10 6/uL Low 4.20-5.40 [facility] Serum or plasma albumin/glob ulin mass ratioon 05-04-2024 Albumin/Globulin [Mass ratio] 0.6 {ratio} [facility] Serum or plasma anion gap de terminationon 05-04-2024 Anion gap [Moles/Vol] 16[facility]2 [facility] Basophils Auto (Bld) [#/Vol] on 05-01-2024 Basophils (Bld) [#/Vol] 0.1 10 3/uL 0.0-0.1 [facility] Basophils/100 WBC Auto (Bld) on 05-01-2024 Basophils/100 WBC (Bld) 0.7 % 0.2-2.0 [facility] Eosinophils/100 WBC Auto (Bl d)on 05-01-2024 Eosinophils/100 WBC (Bld) 2.3 % 0.9-7.0 [facility] Erythrocyte distribution wid th Auto (RBC) [Ratio]on 05-01-2024 Erythrocyte distribution width (RBC) [Ratio] 13.6 % 11.0-15.0 [facility] Estimated glomerular filtrat ion rate (GFR) non- Americanon 05-01-2024 GFR/1.73 sq M.predicted among non-blacks MDRD (S/P/Bld) [Vol rate/Area] 22 mL/min/{1.73_m2} Low >=60 [facility] Globulin Calc (S) [Mass/Vol] on 05-01-2024 Globulin (S) [Mass/Vol] 4.4 g/dL F [facility] Hematocrit Auto (Bld) [Volum e fraction]on 05-01-2024 Hematocrit (Bld) [Volume fraction] 37.5 % 36.0-48.0 [facility] Hemoglobin [Mass/volume] in Bloodon 05-01-2024 Hemoglobin (Bld) [Mass/Vol] 12.1 g/dL 12.0-16.0 [facility] Laboratory - Chemistry and C hemistry - challengeon 05-01-2024 Calcium [Mass/Vol] 9.2 mg/dL 8.5-10.1 [facility] Chloride [Moles/Vol] 104 mmol/L 98-107 [facility] CO2 [Moles/Vol] 23.2 mmol/L 21.0-32.0 [facility] Creatinine [Mass/Vol] 2.14 mg/dL High 0.55-1.02 [facility] GFR/1.73 sq M.predicted MDRD (S/P/Bld) [Vol rate/Area] 27 mL/min/{1.73_m2} Low >=60 [facility] Glucose [Mass/Vol] 220 mg/dL High 74-106 [facility] Potassium [Moles/Vol] 5.3 mmol/L High 3.5-5.1 [facility] Sodium [Moles/Vol] 134 mmol/L Low 136-145 [facility] Urea nitrogen [Mass/Vol] 87.0 mg/dL High 7.0-18.0 [facility] Comment on above: RESULTS CALLED TO Klaus Michaels RN @BY [employer] [id number] Urea nitrogen/Creatinine [Mass ratio] 40.7 mg/mg [facility] Albumin [Mass/Vol] 2.8 g/dL Low 3.4-5.0 [facility] ALP [Catalytic activity/Vol] 80 U/L 46-116 [facility] ALT [Catalytic activity/Vol] 16 U/L 14-59 [facility] AST [Catalytic activity/Vol] 11 U/L Low 15-37 [facility] Bilirubin [Mass/Vol] 0.4 mg/dL 0.2-1.0 [facility] Natriuretic peptide B (Bld) [Mass/Vol] 1624.0 pg/mL <=1800.0 [facility] Protein [Mass/Vol] 7.2 g/dL 6.4-8.2 [facility] Laboratory - Hematology and Cell countson 05-01-2024 Immature granulocytes/100 WBC (Bld) 0.1 % 0.0-0.5 [facility] Leukocytes [#/volume] correc gali for nucleated erythrocytes in Blood by Automated counon 05-01-2024 WBC corrected for nucl RBC Auto (Bld) [#/Vol] 7.4 10 3/uL 4.0-11.0 [facility] Lymphocytes Auto (Bld) [#/Vo l]on 05-01-2024 Lymphocytes (Bld) [#/Vol] 2.2 10 3/uL 1.2-3.8 [facility] Lymphocytes/100 WBC Auto (Bl d)on 05-01-2024 Lymphocytes/100 WBC (Bld) 29.4 % 20.5-60.0 [facility] MCH Auto (RBC) [Entitic mass ]on 05-01-2024 MCH (RBC) [Entitic mass] 29.2 pg 26.7-34.0 [facility] MCHC Auto (RBC) [Mass/Vol]on 05-01-2024 MCHC (RBC) [Mass/Vol] 32.3 g/dL 29.9-35.2 [facility] MCV Auto (RBC) [Entitic vol] on 05-01-2024 MCV (RBC) [Entitic vol] 90.4 fL 81.0-99.0 [facility] Monocytes Auto (Bld) [#/Vol] on 05-01-2024 Monocytes (Bld) [#/Vol] 0.9 10 3/uL High 0.3-0.8 [facility] Monocytes/100 WBC Auto (Bld) on 05-01-2024 Monocytes/100 WBC (Bld) 11.5 % 1.7-12.0 [facility] Neutrophils Auto (Bld) [#/Vo l]on 05-01-2024 Neutrophils (Bld) [#/Vol] 4.1 10 3/uL 1.4-6.5 [facility] Neutrophils/100 WBC Auto (Bl d)on 05-01-2024 Neutrophils/100 WBC (Bld) 56.0 % 43.0-75.0 [facility] No Panel Informationon 05-01 Eosinophils # (Auto) 0.2 10 3/uL 0.0-0.7 [facility] Immature Granulocyte # (Auto) 0.01 10 3/uL 0.00-0.03 [facility] Platelet mean volume Auto (B ld) [Entitic vol]on 05-01-2024 Platelet mean volume (Bld) [Entitic vol] 11.6 fL 9.5-13.5 [facility] Platelets Auto (Bld) [#/Vol] on 05-01-2024 Platelets (Bld) [#/Vol] 151 10 3/uL 150-450 [facility] RBC Auto (Bld) [#/Vol]on RBC (Bld) [#/Vol] 4.15 10 6/uL Low 4.20-5.40 [facility] Serum or plasma albumin/glob ulin mass ratioon 05-01-2024 Albumin/Globulin [Mass ratio] 0.6 {ratio} [facility] Serum or plasma anion gap de terminationon 05-01-2024 Anion gap [Moles/Vol] 12.1 [facility] Basophils Auto (Bld) [#/Vol] on 04-30-2024 Basophils (Bld) [#/Vol] 0.1 10 3/uL 0.0-0.1 [facility] Basophils/100 WBC Auto (Bld) on 04-30-2024 Basophils/100 WBC (Bld) 0.9 % 0.2-2.0 [facility] Eosinophils/100 WBC Auto (Bl d)on 04-30-2024 Eosinophils/100 WBC (Bld) 2.4 % 0.9-7.0 [facility] Erythrocyte distribution wid th Auto (RBC) [Ratio]on 04-30-2024 Erythrocyte distribution width (RBC) [Ratio] 13.5 % 11.0-15.0 [facility] Estimated glomerular filtrat ion rate (GFR) non- Americanon 04-30-2024 GFR/1.73 sq M.predicted among non-blacks MDRD (S/P/Bld) [Vol rate/Area] 15 mL/min/{1.73_m2} Low >=60 [facility] Fibrin D-dimer [Presence] in Platelet poor plasma by Latex agglutinationon 04-30-2024 Fibrin D-dimer LA Ql (PPP) 0.24 mg/L FEU <=0.59 [facility] Comment on above: Increases in D-Dimer concentration [...] Hematocrit (Bld) [Volume fraction] 38.6 % 36.0-48.0 [facility] Hemoglobin [Mass/volume] in Bloodon 04-30-2024 Hemoglobin (Bld) [Mass/Vol] 12.5 g/dL 12.0-16.0 [facility] Laboratory - Chemistry and C hemistry - challengeon 04-30-2024 Calcium [Mass/Vol] 9.0 mg/dL 8.5-10.1 [facility] Chloride [Moles/Vol] 100 mmol/L 98-107 [facility] CO2 [Moles/Vol] 24.4 mmol/L 21.0-32.0 [facility] Creatinine [Mass/Vol] 3.02 mg/dL High 0.55-1.02 [facility] GFR/1.73 sq M.predicted MDRD (S/P/Bld) [Vol rate/Area] 18 mL/min/{1.73_m2} Low >=60 [facility] Glucose [Mass/Vol] 271 mg/dL High 74-106 [facility] Magnesium [Mass/Vol] 1.8 mg/dL 1.8-2.4 [facility] Natriuretic peptide B (Bld) [Mass/Vol] 1485.0 pg/mL <=1800.0 [facility] Potassium [Moles/Vol] 5.3 mmol/L High 3.5-5.1 [facility] Sodium [Moles/Vol] 133 mmol/L Low 136-145 [facility] Urea nitrogen [Mass/Vol] 99.0 mg/dL High 7.0-18.0 [facility] Comment on above: RESULTS CALLED TO Yoel ButtsRN)@BY Franchesca Huynh MLT at 0603 Urea nitrogen/Creatinine [Mass ratio] 32.8 mg/mg [facility] Laboratory - Hematology and Cell countson 04-30-2024 Immature granulocytes/100 WBC (Bld) 0.1 % 0.0-0.5 [facility] Leukocytes [#/volume] correc gali for nucleated erythrocytes in Blood by Automated counon 04-30-2024 WBC corrected for nucl RBC Auto (Bld) [#/Vol] 7.5 10 3/uL 4.0-11.0 [facility] Lymphocytes Auto (Bld) [#/Vo l]on 04-30-2024 Lymphocytes (Bld) [#/Vol] 2.1 10 3/uL 1.2-3.8 [facility] Lymphocytes/100 WBC Auto (Bl d)on 04-30-2024 Lymphocytes/100 WBC (Bld) 27.8 % 20.5-60.0 [facility] MCH Auto (RBC) [Entitic mass ]on 04-30-2024 MCH (RBC) [Entitic mass] 29.6 pg 26.7-34.0 [facility] MCHC Auto (RBC) [Mass/Vol]on 04-30-2024 MCHC (RBC) [Mass/Vol] 32.4 g/dL 29.9-35.[address] [facility] MCV Auto (RBC) [Entitic vol] on 04-30-2024 MCV (RBC) [Entitic vol] 91.5 fL 81.0-99.0 [facility] Monocytes Auto (Bld) [#/Vol] on 04-30-2024 Monocytes (Bld) [#/Vol] 0.8 10 3/uL 0.3-0.8 [facility] Monocytes/100 WBC Auto (Bld) on 04-30-2024 Monocytes/100 WBC (Bld) 10.0 % 1.7-12.0 [facility] Neutrophils Auto (Bld) [#/Vo l]on 04-30-2024 Neutrophils (Bld) [#/Vol] 4.4 10 3/uL 1.4-6.5 [facility] Neutrophils/100 WBC Auto (Bl d)on 04-30-2024 Neutrophils/100 WBC (Bld) 58.8 % 43.0-75.0 [facility] No Panel Informationon 04-30 Troponin I High Sensitivity 12.6 pg/mL 4.0-51.3 [facility] Comment on above: CUT-OFF POINTS HAVE BEEN [...] Eosinophils # (Auto) 0.2 10 3/uL 0.0-0.7 [facility] Immature Granulocyte # (Auto) 0.01 10 3/uL 0.00-0.03 [facility] Platelet mean volume Auto (B ld) [Entitic vol]on 04-30-2024 Platelet mean volume (Bld) [Entitic vol] 12.2 fL 9.5-13.5 [facility] Platelets Auto (Bld) [#/Vol] on 04-30-2024 Platelets (Bld) [#/Vol] 221 10 3/uL 150-450 [facility] RBC Auto (Bld) [#/Vol]on RBC (Bld) [#/Vol] 4.22 10 6/uL 4.20-5.40 [facility] Serum or plasma anion gap de terminationon 04-30-2024 Anion gap [Moles/Vol] 13.9 mmol/L [facility] Basophils Auto (Bld) [#/Vol] on 03-28-2024 Basophils (Bld) [#/Vol] 0.1 10 3/uL 0.0-0.1 [facility] Basophils/100 WBC Auto (Bld) on 03-28-2024 Basophils/100 WBC (Bld) 0.9 % 0.2-2.0 [facility] Eosinophils/100 WBC Auto (Bl d)on 03-28-2024 Eosinophils/100 WBC (Bld) 1.7 % 0.9-7.0 [facility] Erythrocyte distribution wid th Auto (RBC) [Ratio]on 03-28-2024 Erythrocyte distribution width (RBC) [Ratio] 14.2 % 11.0-15.0 [facility] Estimated glomerular filtrat ion rate (GFR) non- Americanon 03-28-2024 GFR/1.73 sq M.predicted among non-blacks MDRD (S/P/Bld) [Vol rate/Area] 39 mL/min/{1.73_m2} Low >=60 [facility] Globulin Calc (S) [Mass/Vol] on 03-28-2024 Globulin (S) [Mass/Vol] 4.8 g/dL [facility] Hematocrit Auto (Bld) [Volum e fraction]on 03-28-2024 Hematocrit (Bld) [Volume fraction] 40.0 % 36.0-48.0 [facility] Hemoglobin [Mass/volume] in Bloodon 03-28-2024 Hemoglobin (Bld) [Mass/Vol] 12.6 g/dL 12.0-16.0 [facility] Laboratory - Chemistry and C hemistry - challengeon 03-28-2024 Albumin [Mass/Vol] 2.5 g/dL Low 3.4-5.0 [facility] ALP [Catalytic activity/Vol] 93 U/L 46-116 [facility] ALT [Catalytic activity/Vol] 9 U/L Low 14-59 [facility] AST [Catalytic activity/Vol] 10 U/L Low 15-37 [facility] Bilirubin [Mass/Vol] 0.9 mg/dL 0.2-1.0 [facility] Calcium [Mass/Vol] 8.5 mg/dL 8.5-10.1 [facility] Chloride [Moles/Vol] 96 mmol/L Low 98-107 [facility] CO2 [Moles/Vol] 27.1 mmol/L 21.0-32.0 [facility] Creatinine [Mass/Vol] 1.33 mg/dL High 0.55-1.02 [facility] GFR/1.73 sq M.predicted MDRD (S/P/Bld) [Vol rate/Area] 47 mL/min/{1.73_m2} Low >=60 [facility] Glucose [Mass/Vol] 261 mg/dL High 74-106 [facility] Magnesium [Mass/Vol] 1.8 mg/dL 1.8-2.4 [facility] Natriuretic peptide B (Bld) [Mass/Vol] 3338.0 pg/mL High <=1800.0 [facility] Comment on above: RESULTS CALLED TO Claritza ButtsRN)@BY Franchesca Huynh MLT at 0554 Potassium [Moles/Vol] 3.8 mmol/L 3.5-5.1 [facility] Protein [Mass/Vol] 7.3 g/dL 6.4-8.2 [facility] Sodium [Moles/Vol] 133 mmol/L Low 136-145 [facility] Urea nitrogen [Mass/Vol] 36.0 mg/dL High 7.0-18.0 [facility] Urea nitrogen/Creatinine [Mass ratio] 27.1 mg/mg [facility] Laboratory - Hematology and Cell countson 03-28-2024 Immature granulocytes/100 WBC (Bld) 0.4 % 0.0-0.5 [facility] Leukocytes [#/volume] correc gali for nucleated erythrocytes in Blood by Automated counon 03-28-2024 WBC corrected for nucl RBC Auto (Bld) [#/Vol] 8.4 10 3/uL 4.0-11.0 [facility] Lymphocytes Auto (Bld) [#/Vo l]on 03-28-2024 Lymphocytes (Bld) [#/Vol] 1.8 10 3/uL 1.2-3.8 [facility] Lymphocytes/100 WBC Auto (Bl d)on 03-28-2024 Lymphocytes/100 WBC (Bld) 21.4 % 20.5-60.0 [facility] MCH Auto (RBC) [Entitic mass ]on 03-28-2024 MCH (RBC) [Entitic mass] 29.0 pg 26.7-34.0 [facility] MCHC Auto (RBC) [Mass/Vol]on 03-28-2024 MCHC (RBC) [Mass/Vol] 31.5 g/dL 29.9-35.2 [facility] MCV Auto (RBC) [Entitic vol] on 03-28-2024 MCV (RBC) [Entitic vol] 92.0 fL 81.0-99.0 [facility] Monocytes Auto (Bld) [#/Vol] on 03-28-2024 Monocytes (Bld) [#/Vol] 0.8 10 3/uL 0.3-0.8 [facility] Monocytes/100 WBC Auto (Bld) on 03-28-2024 Monocytes/100 WBC (Bld) 9.7 % 1.7-12.0 [facility] Neutrophils Auto (Bld) [#/Vo l]on 03-28-2024 Neutrophils (Bld) [#/Vol] 5.6 10 3/uL 1.4-6.5 [facility] Neutrophils/100 WBC Auto (Bl d)on 03-28-2024 Neutrophils/100 WBC (Bld) 65.9 % 43.0-75.0 [facility] No Panel Informationon 03-28 Eosinophils # (Auto) 0.1 10 3/uL 0.0-0.7 [facility] Immature Granulocyte # (Auto) 0.03 10 3/uL 0.00-0.03 [facility] Platelet mean volume Auto (B ld) [Entitic vol]on 03-28-2024 Platelet mean volume (Bld) [Entitic vol] 10.5 fL 9.5-13.5 [facility] Platelets Auto (Bld) [#/Vol] on 03-28-2024 Platelets (Bld) [#/Vol] 197 10 3/uL 150-450 [facility] RBC Auto (Bld) [#/Vol]on RBC (Bld) [#/Vol] 4.35 10 6/uL 4.20-5.40 [facility] Serum or plasma albumin/glob ulin mass ratioon 03-28-2024 Albumin/Globulin [Mass ratio] 0.5 {ratio} [facility] Serum or plasma anion gap de terminationon 03-28-2024 Anion gap [Moles/Vol] 13.7 [facility] Basophils Auto (Bld) [#/Vol] on 03-27-2024 Basophils (Bld) [#/Vol] 0.1 10 3/uL 0.0-0.1 [facility] Basophils/100 WBC Auto (Bld) on 03-27-2024 Basophils/100 WBC (Bld) 0.8 % 0.2-2.0 [facility] Eosinophils/100 WBC Auto (Bl d)on 03-27-2024 Eosinophils/100 WBC (Bld) 1.1 % 0.9-7.0 [facility] Erythrocyte distribution wid th Auto (RBC) [Ratio]on 03-27-2024 Erythrocyte distribution width (RBC) [Ratio] 14.2 % 11.0-15.0 [facility] Estimated glomerular filtrat ion rate (GFR) non- Americanon 03-27-2024 GFR/1.73 sq M.predicted among non-blacks MDRD (S/P/Bld) [Vol rate/Area] 44 mL/min/{1.73_m2} Low >=60 [facility] Globulin Calc (S) [Mass/Vol] on 03-27-2024 Globulin (S) [Mass/Vol] 4.6 g/dL [facility] Glucose mean value [Mass/vol ume] in Blood Estimated from glycated hemoglobinon 03-27-2024 Average glucose Estimated from glycated hemoglobin (Bld) [Mass/Vol] 275 mg/dL [facility] Hematocrit Auto (Bld) [Volum e fraction]on 03-27-2024 Hematocrit (Bld) [Volume fraction] 37.4 % 36.0-48.0 [facility] Hemoglobin [Mass/volume] in Bloodon 03-27-2024 Hemoglobin (Bld) [Mass/Vol] 12.1 g/dL 12.0-16.0 [facility] Laboratory - Chemistry and C hemistry - challengeon 03-27-2024 Albumin [Mass/Vol] 2.6 g/dL Low 3.4-5.0 [facility] ALP [Catalytic activity/Vol] 89 U/L 46-116 [facility] ALT [Catalytic activity/Vol] 12 U/L Low 14-59 [facility] AST [Catalytic activity/Vol] 9 U/L Low 15-37 [facility] Bilirubin [Mass/Vol] 0.9 mg/dL 0.2-1.0 [facility] Calcium [Mass/Vol] 9.1 mg/dL 8.5-10.1 [facility] Chloride [Moles/Vol] 99 mmol/L 98-107 [facility] CO2 [Moles/Vol] 28.8 mmol/L 21.0-32.0 [facility] Creatinine [Mass/Vol] 1.19 mg/dL High 0.55-1.02 [facility] GFR/1.73 sq M.predicted MDRD (S/P/Bld) [Vol rate/Area] 53 mL/min/{1.73_m2} Low >=60 [facility] Glucose [Mass/Vol] 273 mg/dL High 74-106 [facility] Magnesium [Mass/Vol] 1.7 mg/dL Low 1.8-2.4 [facility] Natriuretic peptide B (Bld) [Mass/Vol] 4572.0 pg/mL High <=1800.0 [facility] Comment on above: RESULTS CALLED TO SA RA MIGUEL RN @BY Alla Kevin [id number] Potassium [Moles/Vol] 3.6 mmol/L 3.5-5.1 [facility] Protein [Mass/Vol] 7.2 g/dL 6.4-8.2 [facility] Sodium [Moles/Vol] 135 mmol/L Low 136-145 [facility] Urea nitrogen [Mass/Vol] 34.0 mg/dL High 7.0-18.0 [facility] Urea nitrogen/Creatinine [Mass ratio] 28.6 mg/mg [facility] Laboratory - Hematology and Cell countson 03-27-2024 HbA1c (Bld) [Mass fraction] 11.2 % High 4.5-6.2 [facility] Comment on above: ADA RECOMMENDED LIMI T 4.0 - 6.0ADA THERAPEUTIC TARGET < 7.0ACTION SUGGESTED> 7.0 Immature granulocytes/100 WBC (Bld) 0.3 % 0.0-0.5 [facility] Leukocytes [#/volume] correc gali for nucleated erythrocytes in Blood by Automated counon 03-27-2024 WBC corrected for nucl RBC Auto (Bld) [#/Vol] 9.7 10 3/uL 4.0-11.0 [facility] Lymphocytes Auto (Bld) [#/Vo l]on 03-27-2024 Lymphocytes (Bld) [#/Vol] 1.3 10 3/uL 1.2-3.8 [facility] Lymphocytes/100 WBC Auto (Bl d)on 03-27-2024 Lymphocytes/100 WBC (Bld) 13.3 % Low 20.5-60.0 [facility] MCH Auto (RBC) [Entitic mass ]on 03-27-2024 MCH (RBC) [Entitic mass] 29.2 pg 26.7-34.0 [facility] MCHC Auto (RBC) [Mass/Vol]on 03-27-2024 MCHC (RBC) [Mass/Vol] 32.4 g/dL 29.9-35.2 [facility] MCV Auto (RBC) [Entitic vol] on 03-27-2024 MCV (RBC) [Entitic vol] 90.3 fL 81.0-99.0 [facility] Monocytes Auto (Bld) [#/Vol] on 03-27-2024 Monocytes (Bld) [#/Vol] 0.8 10 3/uL 0.3-0.8 [facility] Monocytes/100 WBC Auto (Bld) on 03-27-2024 Monocytes/100 WBC (Bld) 8.4 % 1.7-12.0 [facility] Neutrophils Auto (Bld) [#/Vo l]on 03-27-2024 Neutrophils (Bld) [#/Vol] 7.4 10 3/uL High 1.4-6.5 [facility] Neutrophils/100 WBC Auto (Bl d)on 03-27-2024 Neutrophils/100 WBC (Bld) 76.1 % High 43.0-75.0 [facility] No Panel Informationon 03-27 Eosinophils # (Auto) 0.1 10 3/uL 0.0-0.7 [facility] Immature Granulocyte # (Auto) 0.03 10 3/uL 0.00-0.03 [facility] Platelet mean volume Auto (B ld) [Entitic vol]on 03-27-2024 Platelet mean volume (Bld) [Entitic vol] 10.6 fL 9.5-13.5 [facility] Platelets Auto (Bld) [#/Vol] on 03-27-2024 Platelets (Bld) [#/Vol] 204 10 3/uL 150-450 [facility] RBC Auto (Bld) [#/Vol]on RBC (Bld) [#/Vol] 4.14 10 6/uL Low 4.20-5.40 [facility] Serum or plasma albumin/glob ulin mass ratioon 03-27-2024 Albumin/Globulin [Mass ratio] 0.6 {ratio} [facility] Serum or plasma anion gap de terminationon 03-27-2024 Anion gap [Moles/Vol] 10.8 mmol/L Fi [facility] Basophils Auto (Bld) [#/Vol] on 03-26-2024 Basophils (Bld) [#/Vol] 0.1 10 3/uL 0.0-0.1 [facility] Basophils/100 WBC Auto (Bld) on 03-26-2024 Basophils/100 WBC (Bld) 0.8 % 0.2-2.0 [facility] Eosinophils/100 WBC Auto (Bl d)on 03-26-2024 Eosinophils/100 WBC (Bld) 1.2 % 0.9-7.0 [facility] Erythrocyte distribution wid th Auto (RBC) [Ratio]on 03-26-2024 Erythrocyte distribution width (RBC) [Ratio] 14.5 % 11.0-15.0 [facility] Estimated glomerular filtrat ion rate (GFR) non- Americanon 03-26-2024 GFR/1.73 sq M.predicted among non-blacks MDRD (S/P/Bld) [Vol rate/Area] 46 mL/min/{1.73_m2} Low >=60 [facility] Glucose mean value [Mass/vol ume] in Blood Estimated from glycated hemoglobinon 03-26-2024 Average glucose Estimated from glycated hemoglobin (Bld) [Mass/Vol] 275 mg/dL [facility] Hematocrit Auto (Bld) [Volum e fraction]on 03-26-2024 Hematocrit (Bld) [Volume fraction] 40.1 % 36.0-48.0 [facility] Hemoglobin [Mass/volume] in Bloodon 03-26-2024 Hemoglobin (Bld) [Mass/Vol] 12.7 g/dL 12.0-16.0 [facility] Laboratory - Chemistry and C hemistry - challengeon 03-26-2024 Calcium [Mass/Vol] 9.1 mg/dL 8.5-10.1 [facility] Chloride [Moles/Vol] 102 mmol/L 98-107 [facility] CO2 [Moles/Vol] 28.5 mmol/L 21.0-32.0 [facility] Creatinine [Mass/Vol] 1.14 mg/dL High 0.55-1.02 [facility] Free T4 [Mass/Vol] 1.29 ng/dL 0.76-1.46 [facility] GFR/1.73 sq M.predicted MDRD (S/P/Bld) [Vol rate/Area] 56 mL/min/{1.73_m2} Low >=60 [facility] Glucose [Mass/Vol] 246 mg/dL High 74-106 [facility] Natriuretic peptide B (Bld) [Mass/Vol] 2890.0 pg/mL High <=1800.0 [facility] Comment on above: RESULTS CALLED TO YOEL TAI RN @BY Alla Kunz 0556 Potassium [Moles/Vol] 4.3 mmol/L 3.5-5.1 [facility] Sodium [Moles/Vol] 136 mmol/L 136-145 [facility] TSH Qn 6.001 m[IU]/L High 0.358-3.740 [facility] Urea nitrogen [Mass/Vol] 35.0 mg/dL High 7.0-18.0 [facility] Urea nitrogen/Creatinine [Mass ratio] 30.7 mg/mg [facility] Laboratory - Hematology and Cell countson 03-26-2024 HbA1c (Bld) [Mass fraction] 11.2 % High 4.5-6.2 [facility] Comment on above: ADA RECOMMENDED LIMI T 4.0 - 6.0ADA THERAPEUTIC TARGET < 7.0ACTION SUGGESTED> 7.0 Immature granulocytes/100 WBC (Bld) 0.2 % 0.0-0.5 [facility] Leukocytes [#/volume] correc gali for nucleated erythrocytes in Blood by Automated counon 03-26-2024 WBC corrected for nucl RBC Auto (Bld) [#/Vol] 8.3 10 3/uL 4.0-11.0 [facility] Lymphocytes Auto (Bld) [#/Vo l]on 03-26-2024 Lymphocytes (Bld) [#/Vol] 1.4 10 3/uL 1.2-3.8 [facility] Lymphocytes/100 WBC Auto (Bl d)on 03-26-2024 Lymphocytes/100 WBC (Bld) 16.5 % Low 20.5-60.0 [facility] MCH Auto (RBC) [Entitic mass ]on 03-26-2024 MCH (RBC) [Entitic mass] 29.1 pg 26.7-34.0 [facility] MCHC Auto (RBC) [Mass/Vol]on 03-26-2024 MCHC (RBC) [Mass/Vol] 31.7 g/dL 29.9-35.2 [facility] MCV Auto (RBC) [Entitic vol] on 03-26-2024 MCV (RBC) [Entitic vol] 92.0 fL 81.0-99.0 [facility] Monocytes Auto (Bld) [#/Vol] on 03-26-2024 Monocytes (Bld) [#/Vol] 0.7 10 3/uL 0.3-0.8 [facility] Monocytes/100 WBC Auto (Bld) on 03-26-2024 Monocytes/100 WBC (Bld) 7.9 % 1.7-12.0 [facility] Neutrophils Auto (Bld) [#/Vo l]on 03-26-2024 Neutrophils (Bld) [#/Vol] 6.1 10 3/uL 1.4-6.5 [facility] Neutrophils/100 WBC Auto (Bl d)on 03-26-2024 Neutrophils/100 WBC (Bld) 73.4 % 43.0-75.0 [facility] No Panel Informationon 03-26 Eosinophils # (Auto) 0.1 10 3/uL 0.0-0.7 [facility] Immature Granulocyte # (Auto) 0.02 10 3/uL 0.00-0.03 [facility] Troponin I High Sensitivity 12.4 pg/mL 4.0-51.3 [facility] Comment on above: CUT-OFF POINTS HAVE BEEN [...] volume (Bld) [Entitic vol] 10.8 fL 9.5-13.5 [facility] Platelets Auto (Bld) [#/Vol] on 03-26-2024 Platelets (Bld) [#/Vol] 225 10 3/uL 150-450 [facility] RBC Auto (Bld) [#/Vol]on RBC (Bld) [#/Vol] 4.36 10 6/uL 4.20-5.40 [facility] Serum or plasma anion gap de terminationon 03-26-2024 Anion gap [Moles/Vol] 9.8 mmol/L [facility] MR cervical spine wo conon 0 03-13-2024 MR cervical spine wo con [facility] [place] [address] MRI Report Signed Patient: Joe Call MR#: [id number] 0 : 1945 Acct:[id number] Age/Sex: 78 / F ADM Date: 03/13/24 Loc: [facility] Room: Type: [facility] Attending Dr: Eloina Hussein MD [...] Jarred Randolph M.D.03/13/2024 3:47 PM Dictation Location: [place] [address] Transcribed By: [facility] 03/13/24 1547 Dictated By: Jarred Randolph DO 03/13/24 1542 Signed By: 03/13/24 1547 Normal [facility] XR pre/post mri xrayon 03-13 XR pre/post mri xray [facility] [place] [address] [place] [address] MRI Report Signed Patient: Joe Call MR#: [id number] 0 : 1945 Acct:[id number] Age/Sex: 78 / F ADM Date: 03/13/24 Loc: [facility] Room: Type: [facility] Attending Dr: Eloina Hussein MD Copies to: Eloina Mullins MD Ordering Provider: Eloina Mullins MD Date of Service: 03/13/24 MR/MR lumbar spine wo con: M54.50 ([id number]) XR/XR pre/post mri xray: M54.50 MRI Lumbar [...] Jarred Randolph M.D.03/13/2024 3:58 PM Dictation Location: [place] [address] Transcribed By: [facility] 03/13/24 1558 Dictated By: Jarred Randolph DO 03/13/24 1551 Signed By: 03/13/24 1558 Normal [facility] Office [place] 03-07-2024 Follow-up visit [id number] Joe Call 1945 F Date Provider Department [place] 03/07/2024 RICA DEAN [facility] CARD [facility] Family History Problem Relation Age of Onset Coronary artery disease Other Diabetes Other Polycystic kidney disease Other Family Status - Relation Status Age at Other Level of Service:15907 [place] OFFICE/OUTPATIENT ESTABLISHED MOD MDM 30 MIN Reason for Visit and Comments: Follow-up [[id number]] - 6 month [facility] Office Visiton 08-17-2023 Follow-up visit [id number] Leona Callmehreen Cramer 1945 F Date Provider Department Center 08/17/2023 [id number] [place] Family History Problem Relation Age of Onset Coronary artery disease Other Diabetes Other Polycystic kidney disease Other Family Status - Relation Status Age at Other Level of Service:84409 [place] OFFICE/OUTPATIENT ESTABLISHED MOD MDM 30-39 MIN [facility] 36on 07-25-2023 37 Pt informed [facility] 36on 07-24-2023 37 She does not need to drink 4 bottle of water. She needs to maintain a 2 L fluid restriction. This includes all fluid not just water. In regards to sleep, I told her she would need to discuss that with her PCP. Thanks. [facility] Office Visiton 07-23-2023 Follow-up visit [id number] BassemJoe Cramer 1945 F Date Provider Department Center 07/23/2023 ENZO BROWNE Family History Problem Relation Age of Onset Coronary artery disease Other Diabetes Other Polycystic kidney disease Other Family Status - Relation Status Age at Other Level of Service:[address]4913 [place] OFFICE/OUTPATIENT ESTABLISHED MOD MDM 30-39 MIN [facility] Office Visiton 04-25-2023 Follow-up visit [id number] Leona Callmehreen Cramer 1945 F Date Provider Department Center 04/25/2023 RICA DEAN Family History Problem Relation Age of Onset Coronary artery disease Other Diabetes Other Polycystic kidney disease Other Family Status - Relation Status Age at Other Level of Service:01954 [place] OFFICE/OUTPATIENT ESTABLISHED MOD MDM 30-39 MIN Reason for Visit and Comments: Atrial Fibrillation [80] Congestive Heart Failure [127] Hypertension [[id number]] [facility] GI PANEL (PCR)on 03-06-2023 Adenovirus F 40/41 Not detected Normal NOT DETECTED [facility] Comment on above: Performed By: #### P OCGLUC #### [facility] [address] [place] [address] Dr. Kasia Nath Astrovirus Not detected Normal NOT DETECTED [facility] Comment on above: Performed By: #### P OCGLUC #### [facility] [address] [place] [address] Dr. Kasia Nath C. Diff toxin A/B Detected Critically abnormal NOT DETECTED [facility] Comment on above: Performed By: #### P OCGLUC #### [facility] [address] [place] [address] Dr. Kasia Nath Campylobacter Detected Critically abnormal NOT DETECTED [facility] Comment on above: Performed By: #### P OCGLUC #### [facility] [address] [place] [address] Dr. Kasia Nath Cryptosporidium Not detected Normal NOT DETECTED [facility] Comment on above: Performed By: #### P OCGLUC #### [facility] [address] [place] [address] Dr. Kasia Nath Cyclos. Cayetanensis Not detected Normal NOT DETECTED [facility] Comment on above: Performed By: #### P OCGLUC #### [facility] [address] [place] [address] Dr. Kasia Nath E. Coli O157 Not Applicable Normal Not Applicable [facility] Comment on above: Performed By: #### P OCGLUC #### [facility] [address] [place] [address] Dr. Kasia Nath E. histolytica Not detected Normal NOT DETECTED [facility] Comment on above: Performed By: #### P OCGLUC #### [facility] [address] [place] [address] Dr. Kasai Nath EAEC Not detected Normal NOT DETECTED [facility] Comment on above: Performed By: #### P OCGLUC #### [facility] [address] [place] [address] Dr. Kasia Nath EIEC Not detected Normal NOT DETECTED [facility] Comment on above: Performed By: #### P OCGLUC #### [facility] [address] [address] [address] Kasia Nath EPEC Not detected Normal NOT DETECTED [facility] Comment on above: Performed By: #### P OCGLUC #### [facility] [address] [address] [address] Kasia Nath ETEC Not detected Normal NOT DETECTED [facility] Comment on above: Performed By: #### P OCGLUC #### [facility] [address] [address] [address] Kasia Nath G. Lamblia Not detected Normal NOT DETECTED [facility] Comment on above: Performed By: #### P OCGLUC #### [facility] [address] [address] [address] Kasia KHAN CONTROLS PASSED Normal [facility] Comment on above: Performed By: #### P OCGLUC #### [facility] [address] [address] [address] Kasia [facility] HEADER GI PANEL BACTERIA Normal [facility] Comment on above: Performed By: #### P OCGLUC #### [facility] [address] [address] [address] Kasia GE ECOLI GI PANEL DIARRHEAGENIC E.COLI / SHIGELLA Normal [facility] Comment on above: Performed By: #### P OCGLUC #### [facility] [address] [address] [address] Kasia GE INFO SEE BELOW Normal [facility] Comment on above: Result Comment: EAEC - Enteroaggregative E. Coli EPEC- Enteropathogenic E. Coli ETEC- Enterotoxigenic E. Coli lt/st STEC- Shigella-like toxin-producing E. Coli stx1/stx2 EIEC- Shigella/Enteroinvasive E. Coli Performed By: #### P OCGLUC #### [facility] [address] [address] [address] Kasia GE PARASITES GI PANEL PARASITES Normal [facility] Comment on above: Performed By: #### P OCGLUC #### [facility] [address] [address] [address] Kasia Nath [facility] VIRUS GI PANEL VIRUSES Normal [facility] Comment on above: Performed By: #### P OCGLUC #### [facility] [address] [address] [address] Kasia Nath Norovirus GI/GII Not detected Normal NOT DETECTED [facility] Comment on above: Performed By: #### P OCGLUC #### [facility] [address] [address] [address] Kasia Nath P. Shigelloides Not detected Normal NOT DETECTED [facility] Comment on above: Performed By: #### P OCGLUC #### [facility] [address] [place] [address] Dr. Kasia Nath Rotavirus A Not detected Normal NOT DETECTED [facility] Comment on above: Performed By: #### P OCGLUC #### [facility] [address] [place] [address] Dr. Kasia Nath Salmonella Not detected Normal NOT DETECTED [facility] Comment on above: Performed By: #### P OCGLUC #### [facility] [address] [place] [address] Dr. Kasia Nath Sapovirus Not detected Normal NOT DETECTED [facility] Comment on above: Performed By: #### P OCGLUC #### [facility] [address] [place] [address] Dr. Kasia Nath STEC Not detected Normal NOT DETECTED [facility] Comment on above: Performed By: #### P OCGLUC #### [facility] [address] [place] [address] Dr. Kasia Nath Vibrio Not detected Normal NOT DETECTED [facility] Comment on above: Performed By: #### P OCGLUC #### [facility] [address] [place] [address] Dr. Kasia Nath Vibrio Cholera Not detected Normal NOT DETECTED [facility] Comment on above: Performed By: #### P OCGLUC #### [facility] [address] [address] [address] Kasia Nath Y. Enterocolitica Not detected Normal NOT DETECTED [facility] Comment on above: Performed By: #### P OCGLUC #### [facility] [address] [place] [address] Dr. Kasia Nath CBC AUTO DIFFon 02-14-2023 BASO # 0.0 103/ul Normal 0.0-0.1 [facility] Comment on above: Performed By: #### P OCGLUC #### [facility] [address] [place] [address] Dr. Kasia Nath Basophils/100 WBC (Bld) 0.5 % Normal 0.2-2.0 [facility] Comment on above: Performed By: #### P OCGLUC #### [facility] [address] [place] [address] Dr. Kasia Nath EO # 0.2 103/ul Normal 0.0-0.7 [facility] Comment on above: Performed By: #### P OCGLUC #### [facility] [address] [place] [address] Dr. Kasia Nath Eosinophils/100 WBC (Bld) 2.7 % Normal 0.9-7.0 [facility] [place] Comment on above: Performed By: #### P OCGLUC #### [facility] [address] [place] [address] Dr. Kasia Nath Erythrocyte distribution width (RBC) [Ratio] 13.0 % Normal 11.0-15.0 [facility] [place] Comment on above: Performed By: #### P OCGLUC #### [facility] [address] [place] [address] Dr. Kasia Nath Hematocrit (Bld) [Volume fraction] 35.9 % Critically low 36.0-48.0 [facility] [place] Comment on above: Performed By: #### P OCGLUC #### [facility] [address] [place] [address] Dr. Kasia Nath Hemoglobin (Bld) [Mass/Vol] 12.0 g/dL Normal 12.0-16.0 [facility] Comment on above: Performed By: #### P OCGLUC #### [facility] [address] [place] [address] Dr. Kasia Nath IG # 0.02 10e3/ul Normal 0.00-0.03 [facility] [place] Comment on above: Performed By: #### P OCGLUC #### [facility] [address] [place] [address] Dr. Kasia Nath IG % 0.3 % Normal 0.0-0.5 [facility] [place] Comment on above: Performed By: #### P OCGLUC #### [facility] [address] [place] [address] Dr. Kasia Nath LYMPH # 1.8 103/ul Normal 1.2-3.8 [facility] [place] Comment on above: Performed By: #### P OCGLUC #### [facility] [address] [place] [address] Dr. Kasia Nath Lymphocytes/100 WBC (Bld) 22.8 % Normal 20.5-60.0 [facility] Comment on above: Performed By: #### P OCGLUC #### [facility] [address] [place] [address] Dr. Kasia Nath MANUAL DIFF REQ NO Normal [facility] Comment on above: Performed By: #### P OCGLUC #### [facility] [address] [place] [address] Dr. Kasia Nath MCH (RBC) [Entitic mass] 29.4 pg Normal 26.7-34.0 [facility] Comment on above: Performed By: #### P OCGLUC #### [facility] [address] [place] [address] Dr. Kasia Nath MCHC (RBC) [Mass/Vol] 33.4 g/dL Normal 29.9-35.2 [facility] Comment on above: Performed By: #### P OCGLUC #### [facility] [address] [place] [address] Dr. Kasia Nath MCV (RBC) [Entitic vol] 88.0 fL Normal 81.0-99.0 [facility] Comment on above: Performed By: #### P OCGLUC #### [facility] [address] [place] [address] Dr. Kasia Nath MONO # 0.7 103/ul Normal 0.3-0.8 [facility] Comment on above: Performed By: #### P OCGLUC #### [facility] [address] [place] [address] Dr. Kasia Nath Monocytes/100 WBC (Bld) 9.3 % Normal 1.7-12.0 [facility] Comment on above: Performed By: #### P OCGLUC #### [facility] [address] [place] [address] Dr. Kasia Nath NEUT # 5.1 103/ul Normal 1.4-6.5 [facility] [place] Comment on above: Performed By: #### P OCGLUC #### [facility] [address] [place] [address] Dr. Kasia Nath Neutrophils/100 WBC (Bld) 64.4 % Normal 43.0-75.0 [facility] [place] Comment on above: Performed By: #### P OCGLUC #### [facility] [address] [place] [address] Dr. Kasia Nath Platelet mean volume (Bld) [Entitic vol] 11.7 fL Normal 9.5-13.5 [facility] Comment on above: Performed By: #### P OCGLUC #### [facility] [address] [place] [address] Dr. Kasia Nath PLT 175 103/ul Normal 150-450 [facility] Comment on above: Performed By: #### P OCGLUC #### [facility] [address] [place] [address] Dr. Kasia Nath RBC 4.08 106/ul Critically low 4.20-5.40 [facility] Comment on above: Performed By: #### P OCGLUC #### [facility] [address] [place] [address] Dr. Kasia Nath WBC 7.9 103/ul Normal 4.0-11.0 [facility] Comment on above: Performed By: #### P OCGLUC #### [facility] [address] [place] [address] Dr. Kasia Nath LIPASEon 04-05-2023 Lipase [Catalytic activity/Vol] 51.0 U/L Critically low 73.0-393.0 [facility] [place] Comment on above: Performed By: #### L IPA, CMP ####[facility] [address] [address]Dr. Kasia Nath PROF 14(COMP METB)on 023 Albumin [Mass/Vol] 2.8 g/dL Critically low 3.4-5.0 [facility] Comment on above: Performed By: #### L IPA, CMP ####[facility] [address] [address]Dr. Kasia Nath Albumin/Globulin [Mass ratio] 0.7 {ratio} Normal [facility] Comment on above: Performed By: #### L IPA, CMP ####[facility] [address] [place], [place] [address]Dr. Kasia Nath ALP [Catalytic activity/Vol] 90 U/L Normal 46-116 [facility] [place] Comment on above: Performed By: #### L IPA, CMP ####[facility] [address] [place], [place] [address]Dr. Kasia Nath ALT [Catalytic activity/Vol] 15 U/L Normal 14-59 [facility] [place] Comment on above: Performed By: #### L IPA, CMP ####[facility] [address] [place], [place] [address]Dr. Kasia Nath Anion gap [Moles/Vol] 15.6 mmol/L Normal [facility] Comment on above: Performed By: #### L IPA, CMP ####[facility] [address] [place], [place] [address]Dr. Kasia Nath AST [Catalytic activity/Vol] 9 U/L Critically low 15-37 [facility] [place] Comment on above: Performed By: #### L IPA, CMP ####[facility] [address] [place], [place] [address]Dr. Kasia Nath Bilirubin [Mass/Vol] 0.4 mg/dL Normal 0.2-1.0 [facility] Comment on above: Performed By: #### L IPA, CMP ####[facility] [address] [address]Dr. Kasia Nath Calcium [Mass/Vol] 9.1 mg/dL Normal 8.5-10.[address] [facility] Comment on above: Performed By: #### L IPA, CMP ####[facility] [address] [place], [place] [address]Dr. Kasia Nath Chloride [Moles/Vol] 104 mmol/L Normal 98-107 [facility] Comment on above: Performed By: #### L IPA, CMP ####[facility] [address] [place], [place] [address]Dr. Kasia Nath CO2 [Moles/Vol] 17.0 mmol/L Critically low 21.0-32.0 [facility] Comment on above: Performed By: #### L IPA, CMP ####[facility] [address] [place], [place] [address]Dr. Kasia Nath Creatinine [Mass/Vol] 1.78 mg/dL Critically high 0.55-1.02 [facility] Comment on above: Performed By: #### L IPA, CMP ####[facility] [address] [place], [place] [address]Dr. Kasia Nath EGFR-AF SURINAMESE 34 mL/min/1.73m2 Critically low >=60 [facility] Comment on above: Performed By: #### L IPA, CMP ####[facility] [address] [place], [place] [address]Dr. Kasia Nath EGFR-NON AF SURINAMESE 28 mL/min/1.73m2 Critically low >=60 [facility] Comment on above: Performed By: #### L IPA, CMP ####[facility] [address] [place], [place] [address]Dr. Fartuncristy Nath Globulin (S) [Mass/Vol] 4.3 g/dL Normal [facility] Comment on above: Performed By: #### L IPA, CMP ####[facility] [address] [place], [place] [address]Dr. Kasia Nath Glucose [Mass/Vol] 248 mg/dL Critically high 74-106 [facility] Comment on above: Performed By: #### L IPA, CMP ####[facility] [address] [place], [place] [address]Dr. Kasai Nath Potassium [Moles/Vol] 4.6 mmol/L Normal 3.5-5.1 [facility] Comment on above: Performed By: #### L IPA, CMP ####[facility] [address] [place], [place] [address]Dr. Kasia Nath Protein [Mass/Vol] 7.1 g/dL Normal 6.4-8.[address] [facility] Comment on above: Performed By: #### L IPA, CMP ####[facility] [address] [place], [place] [address]Dr. Kasia Nath Sodium [Moles/Vol] 132 mmol/L Critically low 136-145 [facility] Comment on above: Performed By: #### L IPA, CMP ####[facility] [address] [place], [place] [address]Dr. Kasia Nath Urea nitrogen [Mass/Vol] 78.0 mg/dL Critically high 7.0-18.0 [facility] Comment on above: Performed By: #### L IPA, CMP ####[facility] [address] [place], [place] [address]Dr. Kasia Nath Urea nitrogen/Creatinine [Mass ratio] 43.8 mg/mg Normal [facility] Comment on above: Performed By: #### L IPA, CMP ####[facility] [address] [place], [place] [address]Dr. Kasia Nath CBC AUTO DIFFon 02-13-2023 BASO # 0.0 103/ul Normal 0.0-0.1 [facility] Comment on above: Performed By: #### C BC ####[facility] [address] [place], [place] [address]Dr. Kasia Nath Basophils/100 WBC (Bld) 0.5 % Normal 0.2-2.0 [facility] Comment on above: Performed By: #### C BC ####[facility] [address] [place], [place] [address]Dr. Kasia Nath EO # 0.1 103/ul Normal 0.0-0.7 [facility] Comment on above: Performed By: #### C BC ####[facility] [address] [place], [place] [address]Dr. Kasia Nath Eosinophils/100 WBC (Bld) 1.0 % Normal 0.9-7.0 [facility] Comment on above: Performed By: #### C BC ####[facility] [address] [place], [place] [address]Dr. Kasia Nath Erythrocyte distribution width (RBC) [Ratio] 12.8 % Normal 11.0-15.0 [facility] Comment on above: Performed By: #### C BC ####[facility] [address] [place], [place] [address]Dr. Kasia Nath Hematocrit (Bld) [Volume fraction] 38.5 % Normal 36.0-48.0 [facility] Comment on above: Performed By: #### C BC ####[facility] [address] [place], [place] [address]Dr. Kasia Nath Hemoglobin (Bld) [Mass/Vol] 13.0 g/dL Normal 12.0-16.0 [facility] Comment on above: Performed By: #### C BC ####[facility] [address] [place], [place] [address]Dr. Kasia Nath IG # 0.02 10e3/ul Normal 0.00-0.03 [facility] Comment on above: Performed By: #### C BC ####[facility] [address] [place], [place] [address]Dr. Kasia Nath IG % 0.2 % Normal 0.0-0.5 [facility] Comment on above: Performed By: #### C BC ####[facility] [address] [place], [place] [address]DrDoreen Nath LYMPH # 0.9 103/ul Critically low 1.2-3.8 [facility] Comment on above: Performed By: #### C BC ####[facility] [address] [place], [place] [address]DrDoreen Nath Lymphocytes/100 WBC (Bld) 10.0 % Critically low 20.5-60.0 [facility] Comment on above: Performed By: #### C BC ####[facility] [address] [address]DrDoreen Nath MANUAL DIFF REQ NO Normal [facility] Comment on above: Performed By: #### C BC ####[facility] [address] [address]DrDoreen Nath MCH (RBC) [Entitic mass] 29.5 pg Normal 26.7-34.0 [facility] Comment on above: Performed By: #### C BC ####[facility] [address] [place], [place] [address]DrDoreen Nath MCHC (RBC) [Mass/Vol] 33.8 g/dL Normal 29.9-35.2 [facility] Comment on above: Performed By: #### C BC ####[facility] [address] [place], [place] [address]DrDoreen Nath MCV (RBC) [Entitic vol] 87.5 fL Normal 81.0-99.0 [facility] Comment on above: Performed By: #### C BC ####[facility] [address] [place], [place] [address]DrDoreen Nath MONO # 0.5 103/ul Normal 0.3-0.8 [facility] Comment on above: Performed By: #### C BC ####[facility] [address] [place], [place] [address]DrDoreen Nath Monocytes/100 WBC (Bld) 5.7 % Normal 1.7-12.0 [facility] Comment on above: Performed By: #### C BC ####[facility] [address] [place], [place] [address]DrDoreen Nath NEUT # 7.2 103/ul Critically high 1.4-6.5 [facility] Comment on above: Performed By: #### C BC ####[facility] [address] [place], [place] [address]DrDoreen Nath Neutrophils/100 WBC (Bld) 82.6 % Critically high 43.0-75.0 [facility] Comment on above: Performed By: #### C BC ####[facility] [address] [place], [place] [address]Vg. Kasia Nath Platelet mean volume (Bld) [Entitic vol] 11.8 fL Normal 9.5-13.5 [facility] Comment on above: Performed By: #### C BC ####[facility] [address] [place], [place] [address]Qq. Kasia Nath PLT 187 103/ul Normal 150-450 [facility] Comment on above: Performed By: #### C BC ####[facility] [address] [place], [place] [address]Xm. Kasia Nath RBC 4.40 106/ul Normal 4.20-5.40 [facility] Comment on above: Performed By: #### C BC ####[facility] [address] [place], [place] [address]Iu. Kasia Nath WBC 8.8 103/ul Normal 4.0-11.0 [facility] Comment on above: Performed By: #### C BC ####[facility] [address] [place], [place] [address]Lf. [address]asia Nath CT ABD/PELVIS WO CONon 02-13 [...] JACOB MCCURDY Date: 2023-02-13 14:40 Normal The [facility] CULTURE URINEon 02-13-2023 CULTURE URINE Culture Observations : LIGHT GROWTH OF MIXED GENITAL VON. NO POTENTIAL PATHOGENS SEEN. Normal [facility] Comment on above: Performed By: #### U RCX ####[facility] [address] [place] [address]Dr. Kasia Nath Covid-19 PCR ([facility])on SARS-CoV-2 (COVID-19) RNA FERN+probe Ql (Unsp spec) Not detected Normal NOT DETECTED The [facility] Comment on above: Result Comment: When diagnostic [...] for this test is supported by the [place] of Health and Human Service's declaration that [...] used). Performed By: #### P OCGLUC #### [facility] Laboratory [address] [place], [place] [address] Dr. Kasia Nath GI PANEL (PCR)on 02-13-2023 Adenovirus F 40/41 Not detected Normal NOT DETECTED The [facility] Comment on above: Performed By: #### C BC #### [facility] Laboratory [address] [place] [address] Dr. Kasia Nath Astrovirus Not detected Normal NOT DETECTED The [facility] Comment on above: Performed By: #### C BC #### [facility] Laboratory [address] [place] [address] Dr. Kasia Del Real. Diff toxin A/B Not detected Normal NOT DETECTED The [facility] Comment on above: Performed By: #### C BC #### [facility] Laboratory [address] [place] [address] Dr. Kasia Nath Campylobacter Not detected Normal NOT DETECTED The [facility] Comment on above: Performed By: #### C BC #### [facility] Laboratory [address] [place] [address] Dr. Kasia Nath Cryptosporidium Not detected Normal NOT DETECTED The [facility] Comment on above: Performed By: #### C BC #### [facility] Laboratory [address] [place] [address] Dr. Kasia Nath Cyclos. Cayetanensis Not detected Normal NOT DETECTED The [facility] Comment on above: Performed By: #### C BC #### [facility] Laboratory [address] [place] [address] Dr. Kasia Nath E. Coli O157 Not Applicable Normal Not Applicable [facility] Comment on above: Performed By: #### C BC #### [facility] Laboratory [address] [place] [address] Dr. Kasia Nath E. histolytica Not detected Normal NOT DETECTED The [facility] Comment on above: Performed By: #### C BC #### [facility] [address] [place] [address] Dr. Kasia Nath EAEC Not detected Normal NOT DETECTED The [facility] Comment on above: Performed By: #### C BC #### [facility] [address] [place] [address] Dr. Kasia Nath EIEC Not detected Normal NOT DETECTED The [facility] Comment on above: Performed By: #### C BC #### [facility] [address] [place] [address] [address] Kasia Nath EPEC Not detected Normal NOT DETECTED The [facility] Comment on above: Performed By: #### C BC #### [facility] [address] [place] [address] [address] Kasia Nath ETEC Not detected Normal NOT DETECTED The [facility] Comment on above: Performed By: #### C BC #### [facility] [address] [place] [address] [address] Kasia Terrazas Lamblia Not detected Normal NOT DETECTED [facility] Comment on above: Performed By: #### C BC #### [facility] [address] [place] [address] [address] Kasia KHAN CONTROLS PASSED Normal [facility] Comment on above: Performed By: #### C BC #### [facility] [address] [place] [address] [address] Kasia FRAIRE HEADER GI PANEL BACTERIA Normal [facility] Comment on above: Performed By: #### C BC #### [facility] [address] [place] [address] [address] Kasia GE ECOLI GI PANEL DIARRHEAGENIC E.COLI / SHIGELLA Normal [facility] Comment on above: Performed By: #### C BC #### [facility] [address] [place] [address] [address] Kasia GE INFO SEE BELOW Normal [facility] Comment on above: Result Comment: EAEC - Enteroaggregative E. Coli EPEC- Enteropathogenic E. Coli ETEC- Enterotoxigenic E. Coli lt/st STEC- Shigella-like toxin-producing E. Coli stx1/stx2 EIEC- Shigella/Enteroinvasive E. Coli Performed By: #### C BC #### [facility] [address] [place] [address] [address] Kasia GE PARASITES GI PANEL PARASITES Normal [facility] Comment on above: Performed By: #### C BC #### [facility] [address] [place] [address] Dr. Kasia Nath [facility] VIRUS GI PANEL VIRUSES Normal [facility] Comment on above: Performed By: #### C BC #### [facility] [address] [place] [address] Dr. Kasia Nath Norovirus GI/GII Not detected Normal NOT DETECTED [facility] Comment on above: Performed By: #### C BC #### [facility] [address] [place] [address] Dr. Kasia Nath P. Shigelloides Not detected Normal NOT DETECTED [facility] Comment on above: Performed By: #### C BC #### [facility] [address] [place] [address] Dr. Kasia Nath Rotavirus A Not detected Normal NOT DETECTED The [facility] Comment on above: Performed By: #### C BC #### [facility] [address] [place] [address] Dr. Kasia Nath Salmonella Not detected Normal NOT DETECTED [facility] Comment on above: Performed By: #### C BC #### [facility] [address] [place] [address] Dr. Kasia Nath Sapovirus Not detected Normal NOT DETECTED [facility] Comment on above: Performed By: #### C BC #### [facility] [address] [place] [address] Dr. Kasia Nath STEC Not detected Normal NOT DETECTED The [facility] Comment on above: Performed By: #### C BC #### [facility] [address] [place] [address] Dr. Kasia Nath Vibrio Not detected Normal NOT DETECTED The [facility] Comment on above: Performed By: #### C BC #### [facility] [address] [place] [address] Dr. Kasia Nath Vibrio Cholera Not detected Normal NOT DETECTED The [facility] Comment on above: Performed By: #### C BC #### [facility] [address] [place] [address] Dr. Kasia Nath Y. Enterocolitica Not detected Normal NOT DETECTED [facility] Comment on above: Performed By: #### C BC #### [facility] Laboratory [address] [place] [address] [address] Kasia Nath LACTATE/LACTIC ACIDon 2022 Lactate [Moles/Vol] 1.7 mmol/L Normal 0.4-2.0 [facility] Comment on above: Performed By: #### L ACT ####[facility] [address] [place] [address]Dr. Kasia Nath LIPASEon 02-13-2023 Lipase [Catalytic activity/Vol] 82.0 U/L Normal 73.0-393.0 [facility] Comment on above: Performed By: #### L IPA, CMP #### [facility] [address] [place] [address] Dr. Kasia Nath POINT OF CARE GLUCOSEon Glucose [Mass/Vol] 229 mg/dL Critically high 74-106 [facility] Comment on above: Performed By: #### P OCGLUC #### [facility] [address] [place] [address] Dr. Kasia Nath Glucose [Mass/Vol] 474 mg/dL Critically high 74-106 [facility] Comment on above: Performed By: #### P OCGLUC #### [facility] [address] [place] [address] Dr. Kasia Nath PROF 14(COMP METB)on 023 Albumin [Mass/Vol] 3.4 g/dL Normal 3.4-5.[address] [facility] Comment on above: Performed By: #### L IPA, CMP #### [facility] [address] [place] [address] Dr. Kasia Nath Albumin/Globulin [Mass ratio] 0.7 {ratio} Normal [facility] Comment on above: Performed By: #### L IPA, CMP #### [facility] [address] [place] [address] Dr. Kasia Nath ALP [Catalytic activity/Vol] 106 U/L Normal 46-116 [facility] Comment on above: Performed By: #### L IPA, CMP #### [facility] [address] [place] [address] [address] Kasia Nath ALT [Catalytic activity/Vol] 21 U/L Normal 14-59 [facility] Comment on above: Performed By: #### L IPA, CMP #### [facility] [address] [place] [address] [address] Kasia Nath Anion gap [Moles/Vol] 17.7 mmol/L Normal [facility] Comment on above: Performed By: #### L IPA, CMP #### [facility] [address] [place] [address] [address] Kasia Nath AST [Catalytic activity/Vol] 11 U/L Critically low 15-37 [facility] Comment on above: Performed By: #### L IPA, CMP #### [facility] [address] [place] [address] [address] Kasia Nath Bilirubin [Mass/Vol] 0.5 mg/dL Normal 0.2-1.0 [facility] Comment on above: Performed By: #### L IPA, CMP #### [facility] [address] [place] [address] [address] Kasia Nath Calcium [Mass/Vol] 9.6 mg/dL Normal 8.5-10.[address] [facility] Comment on above: Performed By: #### L IPA, CMP #### [facility] [address] [place] [address] [address] Kasia Nath Chloride [Moles/Vol] 99 mmol/L Normal 98-107 [facility] Comment on above: Performed By: #### L IPA, CMP #### [facility] [address] [place] [address] [address] Kasia Nath CO2 [Moles/Vol] 20.6 mmol/L Critically low 21.0-32.0 [facility] Comment on above: Performed By: #### L IPA, CMP #### [facility] [address] [place] [address] [address] Kasia Nath Creatinine [Mass/Vol] 2.14 mg/dL Critically high 0.55-1.02 [facility] Comment on above: Performed By: #### L IPA, CMP #### [facility] [address] [place] [address] [address] Kasia Nath EGFR-AF SURINAMESE 27 mL/min/1.73m2 Critically low >=60 [facility] Comment on above: Performed By: #### L IPA, CMP #### [facility] [address] [place] [address] [address] Kasia Nath EGFR-NON AF SURINAMESE 22 mL/min/1.73m2 Critically low >=60 [facility] Comment on above: Performed By: #### L IPA, CMP #### [facility] [address] [place] [address] [address] Kasia Nath Globulin (S) [Mass/Vol] 4.8 g/dL Normal [facility] Comment on above: Performed By: #### L IPA, CMP #### [facility] [address] [place] [address] [address] Kasia Nath Glucose [Mass/Vol] 498 mg/dL Critically high 74-106 [facility] Comment on above: Performed By: #### L IPA, CMP #### [facility] [address] [place] [address] [address] Kasia Nath Potassium [Moles/Vol] 5.3 mmol/L Critically high 3.5-5.1 [facility] Comment on above: Performed By: #### L IPA, CMP #### [facility] [address] [place] [address] [address] Kasia Nath Protein [Mass/Vol] 8.2 g/dL Normal 6.4-8.[address] [facility] Comment on above: Performed By: #### L IPA, CMP #### [facility] [address] [place] [address] [address] Kasia Nath Sodium [Moles/Vol] 132 mmol/L Critically low 136-145 [facility] Comment on above: Performed By: #### L IPA, CMP #### [facility] [address] [place] [address] [address] Kasia Nath Urea nitrogen [Mass/Vol] 86.0 mg/dL Critically high 7.0-18.0 [facility] Comment on above: Performed By: #### L IPA, CMP #### [facility] [address] [place] [address] [address] Kasai Nath Urea nitrogen/Creatinine [Mass ratio] 40.2 mg/mg Normal [facility] Comment on above: Performed By: #### L IPA, CMP #### [facility] [address] [place] [address] [address] Kasia Nath UA RANDOM W/MICROSCOPICon BACTERIA TRACE Abnormal NONE SEEN The [facility] Comment on above: Performed By: #### U AMIC ####[facility] [address] [place] [address]Dr. Kasia Nath Bilirubin Ql (U) Negative Normal NEGATIVE [facility] Comment on above: Performed By: #### U AMIC ####[facility] [address] [place] [address]Dr. Kasia Nath CAST SEEN Abnormal NONE SEEN [facility] Comment on above: Performed By: #### U AMIC ####[facility] [address] [place] [address]Dr. Kasia Nath Clarity (U) CLEAR Normal CLEAR [facility] Comment on above: Performed By: #### U AMIC ####[facility] [address] [place] [address]Dr. Kasia Nath Color (U) LT. YELLOW Normal YELLOW [facility] Comment on above: Performed By: #### U AMIC ####[facility] [address] [place] [address]Dr. Kasia Nath Crystals LM Nom (Urine sed) NONE SEEN Normal NONE SEEN [facility] Comment on above: Performed By: #### U AMIC ####[facility] [address] [place] [address]Dr. Kasia Nath Epithelial cells LM Ql (Urine sed) FEW Abnormal NONE SEEN /RARE The [facility] Comment on above: Performed By: #### U AMIC ####[facility] [address] [place] [address]Dr. Kasia Nath Glucose Ql (U) >1000 Abnormal NEGATIVE [facility] Comment on above: Performed By: #### U AMIC ####[facility] [address] [place] [address]Dr. Kasia Nath Hemoglobin Ql (U) Negative Normal NEGATIVE The [facility] Comment on above: Performed By: #### U AMIC ####[facility] [address] [place] [address]Dr. Fartuncristy Nath HYALINE CAST RARE Normal The [facility] Comment on above: Performed By: #### U AMIC ####[facility] [address] [place] [address]Dr. Fartuncristy Nath Ketones Ql (U) Negative Normal NEGATIVE [facility] Comment on above: Performed By: #### U AMIC ####[facility] [address] [place] [address]Dr. Kasia Nath LEUKOCYTES Negative Normal NEGATIVE The [facility] Comment on above: Performed By: #### U AMIC ####[facility] [address] [place], [place] [address]Dr. Kasia Nath MUCOUS NONE SEEN Normal NONE SEEN The [facility] Comment on above: Performed By: #### U AMIC ####[facility] [address] [place] [address]Dr. Kasia Portillo Nitrite Ql (U) Negative Normal NEGATIVE [facility] Comment on above: Performed By: #### U AMIC ####[facility] [address] [place] [address]Dr. Kasia Nath pH (U) 5.5 [pH] Normal 5-9 [facility] Comment on above: Performed By: #### U AMIC ####[facility] [address] [place] [address]Dr. Kasia Nath RBC 0-2 Normal 0-2 [facility] Comment on above: Performed By: #### U AMIC ####[facility] [address] [place] [address]Dr. Kasia Nath SPEC GRAVITY 1.015 Normal 1.005-<=1.02 5 [facility] Comment on above: Performed By: #### U AMIC ####[facility] [address] [place] [address]Dr. Kasia Nath UA PROTEIN TRACE Normal NEGATIVE/ TRACE The [facility] Comment on above: Performed By: #### U AMIC ####[facility] [address] [place] [address]Dr. Kasia Nath Urobilinogen Qn (U) 0.2 {Meka'U}/dL Normal 0.2 - 1. 0 [facility] Comment on above: Performed By: #### U AMIC ####[facility] [address] [place] [address]Dr. Kasia Nath WBC 0-2 Abnormal NONE SEEN The [facility] Comment on above: Performed By: #### U AMIC ####[facility] [address] [place] [address]Dr. Kasia Nath BNPon 01-16-2023 Natriuretic peptide B (Bld) [Mass/Vol] 1675.0 pg/mL Normal <=1,800.0 [facility] Comment on above: Performed By: #### B ELECTRONICS MECHANIC, CMP ####[facility] [address] [place] [address]Dr. Kasia Nath PROF 14(COMP METB)on 023 Albumin [Mass/Vol] 3.4 g/dL Normal 3.4-5.[address] [facility] Comment on above: Performed By: #### B ELECTRONICS MECHANIC, CMP ####[facility] [address] [place] [address]Dr. Kasia Nath Albumin/Globulin [Mass ratio] 0.8 {ratio} Normal [facility] Comment on above: Performed By: #### B ELECTRONICS MECHANIC, CMP ####[facility] [address] [place] [address]Dr. Kasia Nath ALP [Catalytic activity/Vol] 99 U/L Normal 46-116 [facility] Comment on above: Performed By: #### B ELECTRONICS MECHANIC, CMP ####[facility] [address] [place] [address]Dr. Kasia Nath ALT [Catalytic activity/Vol] 18 U/L Normal 14-59 [facility] Comment on above: Performed By: #### B ELECTRONICS MECHANIC, CMP ####[facility] [address] [place] [id number]. Kasia Nath Anion gap [Moles/Vol] 10.6 mmol/L Normal [facility] Comment on above: Performed By: #### B ELECTRONICS MECHANIC, CMP ####[facility] [address] [place] [address]Dr. Kasia Nath AST [Catalytic activity/Vol] 15 U/L Normal 15-37 [facility] Comment on above: Performed By: #### B ELECTRONICS MECHANIC, CMP ####[facility] [address] [place] [address]Dr. Fartuncristy Portillo Bilirubin [Mass/Vol] 0.5 mg/dL Normal 0.2-1.0 [facility] Comment on above: Performed By: #### B ELECTRONICS MECHANIC, CMP ####[facility] [address] [place], [place] [address]Dr. Kasia Portillo Calcium [Mass/Vol] 9.1 mg/dL Normal 8.5-10.[address] [facility] Comment on above: Performed By: #### B ELECTRONICS MECHANIC, CMP ####[facility] [address] [place], [place] [address]Dr. Kasia Portillo Chloride [Moles/Vol] 98 mmol/L Normal 98-107 [facility] Comment on above: Performed By: #### B ELECTRONICS MECHANIC, CMP ####[facility] [address] [place] [address]Dr. Kasia Nath CO2 [Moles/Vol] 30.4 mmol/L Normal 21.0-32.0 [facility] Comment on above: Performed By: #### B ELECTRONICS MECHANIC, CMP ####[facility] [address] [place], [place] [address]Dr. Fartuncristy Portillo Creatinine [Mass/Vol] 1.44 mg/dL Critically high 0.55-1.02 [facility] Comment on above: Performed By: #### B ELECTRONICS MECHANIC, CMP ####[facility] [address] [place], [place] [address]Dr. Fartuncristy Portillo EGFR-AF SURINAMESE 43 mL/min/1.73m2 Critically low >=60 [facility] Comment on above: Performed By: #### B ELECTRONICS MECHANIC, CMP ####[facility] [address] [place], [place] [address]Dr. Kasia Nath EGFR-NON AF SURINAMESE 35 mL/min/1.73m2 Critically low >=60 [facility] Comment on above: Performed By: #### B ELECTRONICS MECHANIC, CMP ####[facility] [address] [place], [place] [address]Dr. Kasia Nath Globulin (S) [Mass/Vol] 4.4 g/dL Normal [facility] Comment on above: Performed By: #### B ELECTRONICS MECHANIC, CMP ####[facility] [address] [place], [place] [address]Dr. Kasia Nath Glucose [Mass/Vol] 401 mg/dL Critically high 74-106 [facility] Comment on above: Performed By: #### B ELECTRONICS MECHANIC, CMP ####[facility] [address] [place], [place] [address]Dr. Kasia Nath Potassium [Moles/Vol] 5.0 mmol/L Normal 3.5-5.1 [facility] Comment on above: Performed By: #### B ELECTRONICS MECHANIC, CMP ####[facility] [address] [place], [place] [address]Dr. Kasia Nath Protein [Mass/Vol] 7.8 g/dL Normal 6.4-8.[address] [facility] Comment on above: Performed By: #### B ELECTRONICS MECHANIC, CMP ####[facility] [address] [place], [place] [address]Dr. Kasia Nath Sodium [Moles/Vol] 134 mmol/L Critically low 136-145 [facility] Comment on above: Performed By: #### B ELECTRONICS MECHANIC, CMP ####[facility] [address] [place], [place] [address]Dr. Kasia Nath Urea nitrogen [Mass/Vol] 46.0 mg/dL Critically high 7.0-18.0 [facility] Comment on above: Performed By: #### B ELECTRONICS MECHANIC, CMP ####[facility] [facility] [id number] [place] [address]Dr. Kasia Nath Urea nitrogen/Creatinine [Mass ratio] 31.9 mg/mg Normal [facility] [place] Comment on above: Performed By: #### B ELECTRONICS MECHANIC, CMP ####[facility] [address] [place] [address]Dr. Kasia Nath BNPon 01-05-2023 Natriuretic peptide B (Bld) [Mass/Vol] 1389.0 pg/mL Normal <=1,800.0 [facility] Comment on above: Performed By: #### B ELECTRONICS MECHANIC, CMADM, CMP ####[facility] [address] [address]Dr. Kasia Nath CARDIAC EMERY ADMITon 023 CK [Catalytic activity/Vol] 138 U/L Normal 26-192 [facility] Comment on above: Performed By: #### B ELECTRONICS MECHANIC, CMADM, CMP ####[facility] [address] [place] [address]Dr. Fartuncristy Nath CK.MB [Mass/Vol] 2.22 ng/mL Normal <=3.60 [facility] Comment on above: Performed By: #### B ELECTRONICS MECHANIC, CMADM, CMP ####[facility] [address] [place], [place] [address]Dr. Kasia Nath HSTROP 15.9 pg/mL Normal 4.0-51.3 [facility] Comment on above: Result Comment: CUT- OFF POINTS HAVE BEEN ESTABLISHED BASED ON THE FOURTH UNIVERSAL DEFINITIONS OF MYOCARDIAL INFARCTION. THE UPPER REFERENCE LIMIT (URL) OF TROPONIN, DEFINED THE 99TH PERCENTILE OF cTnI DISTRIBUTION IN A REFERENCE POPULATION, HAS BEEN CONFIRMED THE DECISION THRESHOLD FOR CO DIAGNOSIS. Performed By: #### B ELECTRONICS MECHANIC, CMADM, CMP ####[facility] [address] [place] [address]Dr. Fartuncristy Nath GRETTA 178 ng/mL Critically high 9-82 The [facility] Comment on above: Performed By: #### B ELECTRONICS MECHANIC, CMADM, CMP ####[facility] [address] [place] [address]Dr. Kasia Nath CBC AUTO DIFFon 01-05-2023 BASO # 0.1 103/ul Normal 0.0-0.1 [facility] [place] Comment on above: Performed By: #### C BC #### [facility] [address] [place] [address] Dr. Kasia Nath Basophils/100 WBC (Bld) 0.7 % Normal 0.2-2.0 [facility] Comment on above: Performed By: #### C BC #### [facility] [address] [place] [address] Dr. Kasia Nath EO # 0.3 103/ul Normal 0.0-0.7 [facility] [place] Comment on above: Performed By: #### C BC #### [facility] [address] [place] [address] Dr. Kasia Nath Eosinophils/100 WBC (Bld) 2.9 % Normal 0.9-7.0 [facility] [place] Comment on above: Performed By: #### C BC #### [facility] [address] [place] [address] Dr. Kasia Nath Erythrocyte distribution width (RBC) [Ratio] 13.5 % Normal 11.0-15.0 [facility] [place] Comment on above: Performed By: #### C BC #### [facility] [address] [place] [address] Dr. Kasia Nath Hematocrit (Bld) [Volume fraction] 39.8 % Normal 36.0-48.0 [facility] [place] Comment on above: Performed By: #### C BC #### [facility] [address] [place] [address] Dr. Kasia Nath Hemoglobin (Bld) [Mass/Vol] 13.5 g/dL Normal 12.0-16.0 [facility] [place] Comment on above: Performed By: #### C BC #### [facility] [address] [place] [address] Dr. Kasia Nath IG # 0.02 10e3/ul Normal 0.00-0.03 [facility] [place] Comment on above: Performed By: #### C BC #### [facility] [address] [place] [address] Dr. Kasia Nath IG % 0.2 % Normal 0.0-0.5 [facility] [place] Comment on above: Performed By: #### C BC #### [facility] [address] [place] [address] Dr. Kasia Nath LYMPH # 1.9 103/ul Normal 1.2-3.8 [facility] [place] Comment on above: Performed By: #### C BC #### [facility] [address] [place] [address] Dr. Kasia Nath Lymphocytes/100 WBC (Bld) 22.0 % Normal 20.5-60.0 [facility] [place] Comment on above: Performed By: #### C BC #### [facility] [address] [place] [address] Dr. Kasia Nath MANUAL DIFF REQ NO Normal [facility] Comment on above: Performed By: #### C BC #### [facility] [address] [place] [address] Dr. Kasia Nath MCH (RBC) [Entitic mass] 29.8 pg Normal 26.7-34.0 [facility] [place] Comment on above: Performed By: #### C BC #### [facility] [address] [place] [address] Dr. Kasia Nath MCHC (RBC) [Mass/Vol] 33.9 g/dL Normal 29.9-35.2 [facility] [place] Comment on above: Performed By: #### C BC #### [facility] [address] [place] [address] Dr. Kasia Nath MCV (RBC) [Entitic vol] 87.9 fL Normal 81.0-99.0 [facility] Comment on above: Performed By: #### C BC #### [facility] [address] [place] [address] Dr. Kasia Nath MONO # 0.8 103/ul Normal 0.3-0.8 [facility] [place] Comment on above: Performed By: #### C BC #### [facility] [address] [place] [address] Dr. Kasia Nath Monocytes/100 WBC (Bld) 8.8 % Normal 1.7-12.0 [facility] Comment on above: Performed By: #### C BC #### [facility] [address] [address] [address] Kasia Nath NEUT # 5.6 103/ul Normal 1.4-6.5 [facility] [place] Comment on above: Performed By: #### C BC #### [facility] [address] [address] [address] Kasia Nath Neutrophils/100 WBC (Bld) 65.4 % Normal 43.0-75.0 [facility] [place] Comment on above: Performed By: #### C BC #### [facility] [address] [address] [address] Kasia Nath Platelet mean volume (Bld) [Entitic vol] 10.6 fL Normal 9.5-13.5 [facility] [place] Comment on above: Performed By: #### C BC #### [facility] [address] [place] [address] Dr. Kasia Nath PLT 222 103/ul Normal 150-450 [facility] [place] Comment on above: Performed By: #### C BC #### [facility] [address] [place] [address] Dr. Kasia Nath RBC 4.53 106/ul Normal 4.20-5.40 [facility] [place] Comment on above: Performed By: #### C BC #### [facility] [address] [place] [address] Dr. Kasia Nath WBC 8.6 103/ul Normal 4.0-11.0 [facility] [place] Comment on above: Performed By: #### C BC #### [facility] [address] [place] [address] Dr. Kasia Nath PROF 14(COMP METB)on 023 Albumin [Mass/Vol] 3.3 g/dL Critically low 3.4-5.0 [facility] Comment on above: Performed By: #### B ELECTRONICS MECHANIC, CMADM, CMP #### [facility] [address] [address] [address] Kasia Nath Albumin/Globulin [Mass ratio] 0.7 {ratio} Normal [facility] [place] Comment on above: Performed By: #### B ELECTRONICS MECHANIC, CMADM, CMP #### [facility] [address] [address] [address] Kasia Nath ALP [Catalytic activity/Vol] 106 U/L Normal 46-116 [facility] [place] Comment on above: Performed By: #### B ELECTRONICS MECHANIC, CMADM, CMP #### [facility] [address] [address] [address] Kasia Nath ALT [Catalytic activity/Vol] 22 U/L Normal 14-59 [facility] [place] Comment on above: Performed By: #### B ELECTRONICS MECHANIC, CMADM, CMP #### [facility] [address] [address] [address] Kasia Nath Anion gap [Moles/Vol] 12.0 mmol/L Normal [facility] Comment on above: Performed By: #### B ELECTRONICS MECHANIC, CMADM, CMP #### [facility] [address] [place] [address] Dr. Kasia Nath AST [Catalytic activity/Vol] 23 U/L Normal 15-37 [facility] [place] Comment on above: Performed By: #### B ELECTRONICS MECHANIC, CMADM, CMP #### [facility] [address] [place] [address] Dr. Kasia Nath Bilirubin [Mass/Vol] 0.7 mg/dL Normal 0.2-1.0 [facility] [place] Comment on above: Performed By: #### B ELECTRONICS MECHANIC, CMADM, CMP #### [facility] [address] [place] [address] Dr. Kasia Nath Calcium [Mass/Vol] 8.8 mg/dL Normal 8.5-10.[address] [facility] Comment on above: Performed By: #### B ELECTRONICS MECHANIC, CMADM, CMP #### [facility] [address] [place] [address] Dr. Kasia Nath Chloride [Moles/Vol] 98 mmol/L Normal 98-107 [facility] [place] Comment on above: Performed By: #### B ELECTRONICS MECHANIC, CMADM, CMP #### [facility] [address] [place] [address] Dr. Kasia Nath CO2 [Moles/Vol] 30.2 mmol/L Normal 21.0-32.0 [facility] Comment on above: Performed By: #### B ELECTRONICS MECHANICLEONORA, CMP #### [facility] [address] [address] [address] Kasia Nath Creatinine [Mass/Vol] 1.19 mg/dL Critically high 0.55-1.02 [facility] [place] Comment on above: Performed By: #### B ELECTRONICS MECHANIC, MACDM, CMP #### [facility] [address] [address] [address] Kasia Nath EGFR-AF SURINAMESE 53 mL/min/1.73m2 Critically low >=60 [facility] [place] Comment on above: Performed By: #### B ELECTRONICS MECHANIC, LEONORA, CMP #### [facility] [address] [place] [address] Dr. Kasia Nath EGFR-NON AF SURINAMESE 44 mL/min/1.73m2 Critically low >=60 [facility] [place] Comment on above: Performed By: #### B ELECTRONICS MECHANIC, MACDM, CMP #### [facility] [address] [address] [address] Kasia Nath Globulin (S) [Mass/Vol] 4.7 g/dL Normal [facility] Comment on above: Performed By: #### B ELECTRONICS MECHANIC, MACDM, CMP #### [facility] [address] [place] [address] Dr. Kasia Nath Glucose [Mass/Vol] 124 mg/dL Critically high 74-106 [facility] Comment on above: Performed By: #### B ELECTRONICS MECHANIC, MACDM, CMP #### [facility] [address] [address] [address] Kasia Nath Potassium [Moles/Vol] 3.2 mmol/L Critically low 3.5-5.1 [facility] [place] Comment on above: Performed By: #### B ELECTRONICS MECHANIC, MACDM, CMP #### [facility] [address] [address] [address] Kasia Nath Protein [Mass/Vol] 8.0 g/dL Normal 6.4-8.[address] [facility] Comment on above: Performed By: #### B ELECTRONICS MECHANIC, CMADM, CMP #### [facility] [address] [address] [address] Kasia Nath Sodium [Moles/Vol] 137 mmol/L Normal 136-[address] [facility] Comment on above: Performed By: #### B ELECTRONICS MECHANIC, CMADM, CMP #### [facility] [address] [address] [address] Kasia Nath Urea nitrogen [Mass/Vol] 29.0 mg/dL Critically high 7.0-18.0 [facility] [place] Comment on above: Performed By: #### B ELECTRONICS MECHANIC, CMADM, CMP #### [facility] [address] [address] [address] Kasia Nath Urea nitrogen/Creatinine [Mass ratio] 24.4 mg/mg Normal [facility] [place] Comment on above: Performed By: #### B ELECTRONICS MECHANIC, CMADM, CMP #### [facility] [address] [address] [address] Kasia Nath TROPONIN, HIGH SENSITIVITYon 01-05-2023 HSTROP 18.4 pg/mL Normal 4.0-51.3 [facility] [place] Comment on above: Result Comment: CUT- OFF POINTS HAVE BEEN ESTABLISHED BASED ON THE FOURTH UNIVERSAL DEFINITIONS OF MYOCARDIAL INFARCTION. THE UPPER REFERENCE LIMIT (URL) OF TROPONIN, DEFINED THE 99TH PERCENTILE OF cTnI DISTRIBUTION IN A REFERENCE POPULATION, HAS BEEN CONFIRMED THE DECISION THRESHOLD FOR CO DIAGNOSIS. Performed By: #### H STROPN ####[facility] [id number] [place] [id number]. Kasia Nath XR CHEST 1 Von 01-05-2023 [...] BIN ROJAS Date: 2023-01-05 04:39 Normal [facility] BNPon 01-02-2023 Natriuretic peptide B (Bld) [Mass/Vol] 2583.0 pg/mL Critically high <=1,800.0 [facility] Comment on above: Performed By: #### B ELECTRONICS MECHANIC, CMP ####[facility] [address] [place], [place] [address]IaDr. Kasia Nath CBC AUTO DIFFon 01-02-2023 BASO # 0.1 103/ul Normal 0.0-0.1 [facility] [place] Comment on above: Performed By: #### P OCGLUC #### [facility] [address] [address] [address] Kasia Nath Basophils/100 WBC (Bld) 0.9 % Normal 0.2-2.0 [facility] Comment on above: Performed By: #### P OCGLUC #### [facility] [address] [address] [address] Kasia Nath EO # 0.2 103/ul Normal 0.0-0.7 [facility] [place] Comment on above: Performed By: #### P OCGLUC #### [facility] [address] [address] [address] Kasia Nath Eosinophils/100 WBC (Bld) 2.3 % Normal 0.9-7.0 [facility] Comment on above: Performed By: #### P OCGLUC #### [facility] [address] [address] [address] Kasia Nath Erythrocyte distribution width (RBC) [Ratio] 13.8 % Normal 11.0-15.0 [facility] [place] Comment on above: Performed By: #### P OCGLUC #### [facility] [address] [address] [address] Kasia Nath Hematocrit (Bld) [Volume fraction] 35.5 % Critically low 36.0-48.0 [facility] Comment on above: Performed By: #### P OCGLUC #### [facility] [address] [address] [address] Kasia Nath Hemoglobin (Bld) [Mass/Vol] 11.6 g/dL Critically low 12.0-16.0 [facility] [place] Comment on above: Performed By: #### P OCGLUC #### [facility] [address] [address] [address] Kasia Nath IG # 0.02 10e3/ul Normal 0.00-0.03 [facility] [place] Comment on above: Performed By: #### P OCGLUC #### [facility] [address] [address] [address] Kasia Nath IG % 0.3 % Normal 0.0-0.5 [facility] [place] Comment on above: Performed By: #### P OCGLUC #### [facility] [address] [address] [address] Kasia Nath LYMPH # 2.0 103/ul Normal 1.2-3.8 [facility] [place] Comment on above: Performed By: #### P OCGLUC #### [facility] [address] [address] [address] Kasia Nath Lymphocytes/100 WBC (Bld) 24.8 % Normal 20.5-60.0 [facility] [place] Comment on above: Performed By: #### P OCGLUC #### [facility] [address] [address] [address] Kasia Nath MANUAL DIFF REQ NO Normal [facility] Comment on above: Performed By: #### P OCGLUC #### [facility] [address] [address] [address] Kasia Nath MCH (RBC) [Entitic mass] 28.7 pg Normal 26.7-34.0 [facility] [place] Comment on above: Performed By: #### P OCGLUC #### [facility] [address] [address] [address] Kasia Nath MCHC (RBC) [Mass/Vol] 32.7 g/dL Normal 29.9-35.2 [facility] [place] Comment on above: Performed By: #### P OCGLUC #### [facility] [address] [address] [address] Kasia Nath MCV (RBC) [Entitic vol] 87.9 fL Normal 81.0-99.0 [facility] Comment on above: Performed By: #### P OCGLUC #### [facility] [address] [address] [address] Kasia Nath MONO # 0.8 103/ul Normal 0.3-0.8 [facility] [place] Comment on above: Performed By: #### P OCGLUC #### [facility] [address] [address] [address] Kasia Nath Monocytes/100 WBC (Bld) 9.6 % Normal 1.7-12.0 [facility] Comment on above: Performed By: #### P OCGLUC #### [facility] [address] [address] [address] Kasia Nath NEUT # 5.0 103/ul Normal 1.4-6.5 [facility] [place] Comment on above: Performed By: #### P OCGLUC #### [facility] [address] [place] [address] Dr. Kasia Nath Neutrophils/100 WBC (Bld) 62.1 % Normal 43.0-75.0 [facility] [place] Comment on above: Performed By: #### P OCGLUC #### [facility] [address] [address] [address] Kasia Nath Platelet mean volume (Bld) [Entitic vol] 10.7 fL Normal 9.5-13.5 [facility] [place] Comment on above: Performed By: #### P OCGLUC #### [facility] [address] [address] [address] Kasia Nath PLT 204 103/ul Normal 150-450 [facility] [place] Comment on above: Performed By: #### P OCGLUC #### [facility] [address] [address] [address] Kasia Nath RBC 4.04 106/ul Critically low 4.20-5.40 [facility] Comment on above: Performed By: #### P OCGLUC #### [facility] [address] [address] [address] Kasia Nath WBC 8.0 103/ul Normal 4.0-11.0 [facility] [place] Comment on above: Performed By: #### P OCGLUC #### [facility] [address] [address] [address] Kasia Nath GLYCOHEMOGLOBIN A1Con 2022 ADA RECOMMENDATION SEE BELOW Normal [facility] Comment on above: Result Comment: ADA RECOMMENDED LIMIT 4.0 - 6.0 ADA THERAPEUTIC TARGET < 7.0 ACTION SUGGESTED > 7.0 Performed By: #### A 1C ####[facility] [address] [place] [address]Dr. Kasia Nath Glucose [Mass/Vol] 298 mg/dL Normal [facility] Comment on above: Performed By: #### A 1C ####[facility] [address] [place] [address]Dr. Kasia Nath HbA1c (Bld) [Mass fraction] 12.0 % Critically high 4.5-6.2 [facility] [place] Comment on above: Performed By: #### A 1C ####[facility] [address] [place], [place] [address]Dr. Kasia Nath POINT OF CARE GLUCOSEon 12-14 Glucose [Mass/Vol] 227 mg/dL Critically high 74-106 [facility] Comment on above: Performed By: #### C BC #### [facility] [address] [address] [address] Kasia Nath Glucose [Mass/Vol] 214 mg/dL Critically high 74-106 [facility] Comment on above: Performed By: #### C BC #### [facility] [address] [address] [address] Kasia Nath PROF 14(COMP METB)on 023 Albumin [Mass/Vol] 2.6 g/dL Critically low 3.4-5.0 [facility] Comment on above: Performed By: #### B ELECTRONICS MECHANIC, CMP ####[facility] [address] [id number]. Kasia Nath Albumin/Globulin [Mass ratio] 0.6 {ratio} Normal [facility] [place] Comment on above: Performed By: #### B ELECTRONICS MECHANIC, CMP ####[facility] [address] [place] [address]Dr. Kasia Nath ALP [Catalytic activity/Vol] 94 U/L Normal 46-116 [facility] [place] Comment on above: Performed By: #### B ELECTRONICS MECHANIC, CMP ####[facility] [address] [place], [place] [address]Dr. Kasia Nath ALT [Catalytic activity/Vol] 16 U/L Normal 14-59 [facility] [place] Comment on above: Performed By: #### B ELECTRONICS MECHANIC, CMP ####[facility] [address] [place], [place] [address]Dr. Fartuncristy Portillo Anion gap [Moles/Vol] 10.6 mmol/L Normal [facility] Comment on above: Performed By: #### B ELECTRONICS MECHANIC, CMP ####[facility] [address] [place], [place] [address]Dr. Kasia Portillo AST [Catalytic activity/Vol] 15 U/L Normal 15-37 [facility] [place] Comment on above: Performed By: #### B ELECTRONICS MECHANIC, CMP ####[facility] [address] [place], [place] [address]Dr. Kasia Portillo Bilirubin [Mass/Vol] 0.8 mg/dL Normal 0.2-1.0 [facility] [place] Comment on above: Performed By: #### B ELECTRONICS MECHANIC, CMP ####[facility] [address] [place], [place] [address]Dr. Kasia Portillo Calcium [Mass/Vol] 8.5 mg/dL Normal 8.5-10.[address] [facility] Comment on above: Performed By: #### B ELECTRONICS MECHANIC, CMP ####[facility] [address] [place], [place] [address]Dr. Kasia Nath Chloride [Moles/Vol] 102 mmol/L Normal 98-107 [facility] [place] Comment on above: Performed By: #### B ELECTRONICS MECHANIC, CMP ####[facility] [id number] [id number]. Kasia Nath CO2 [Moles/Vol] 30.2 mmol/L Normal 21.0-32.0 [facility] Comment on above: Performed By: #### B ELECTRONICS MECHANIC, CMP ####[facility] [id number] [phone]. Kasia Nath Creatinine [Mass/Vol] 0.94 mg/dL Normal 0.55-1.02 [facility] Comment on above: Performed By: #### B ELECTRONICS MECHANIC, CMP ####[facility] [id number] [phone]. Kasia Nath EGFR-AF SURINAMESE >60 Normal >=60 [facility] Comment on above: Performed By: #### B ELECTRONICS MECHANIC, CMP ####[facility] [id number] [phone]. Kasia Nath EGFR-NON AF SURINAMESE 58 mL/min/1.73m2 Critically low >=60 [facility] [place] Comment on above: Performed By: #### B ELECTRONICS MECHANIC, CMP ####[facility] [address] [place] [phone]. Kasia Nath Globulin (S) [Mass/Vol] 4.0 g/dL Normal [facility] Comment on above: Performed By: #### B ELECTRONICS MECHANIC, CMP ####[facility] [id number] [phone]. Kasia Nath Glucose [Mass/Vol] 150 mg/dL Critically high 74-106 [facility] Comment on above: Performed By: #### B ELECTRONICS MECHANIC, CMP ####[facility] [id number] [place] [phone]. Kasia Nath Potassium [Moles/Vol] 3.8 mmol/L Normal 3.5-5.1 [facility] [place] Comment on above: Performed By: #### B ELECTRONICS MECHANIC, CMP ####[facility] [id number] [place] [phone]. Kasia Nath Protein [Mass/Vol] 6.6 g/dL Normal 6.4-8.[address] [facility] Comment on above: Performed By: #### B ELECTRONICS MECHANIC, CMP ####[facility] [address] [address] [phone]. Kasia Nath Sodium [Moles/Vol] 139 mmol/L Normal 136-[address] [facility] Comment on above: Performed By: #### B ELECTRONICS MECHANIC, CMP ####[facility] [address] [place] [address]Dr. Kasia Nath Urea nitrogen [Mass/Vol] 24.0 mg/dL Critically high 7.0-18.0 [facility] [place] Comment on above: Performed By: #### B ELECTRONICS MECHANIC, CMP ####[facility] [address] [place] [address]Dr. Kasia Nath Urea nitrogen/Creatinine [Mass ratio] 25.5 mg/mg Normal [facility] [place] Comment on above: Performed By: #### B ELECTRONICS MECHANIC, CMP ####[facility] [address] [place] [address]Dr. Kasia Nath BNPon 01-01-2023 Natriuretic peptide B (Bld) [Mass/Vol] 1419.0 pg/mL Normal <=1,800.0 [facility] [place] Comment on above: Performed By: #### B ELECTRONICS MECHANIC #### [facility] Laboratory [address] [place] [address] Dr. Kasia Nath CARDIAC EMERY 3-6on 3 CK [Catalytic activity/Vol] 80 U/L Normal 26-192 [facility] [place] Comment on above: Performed By: #### P OCGLUC #### [facility] [address] [place] [address] Dr. Kasia Nath CK.MB [Mass/Vol] 1.85 ng/mL Normal <=3.60 [facility] Comment on above: Performed By: #### P OCGLUC #### [facility] [address] [place] [address] Dr. Kasia Nath HSTROP 13.2 pg/mL Normal 4.0-51.3 [facility] [place] Comment on above: Result Comment: CUT- OFF POINTS HAVE BEEN ESTABLISHED BASED ON THE FOURTH UNIVERSAL DEFINITIONS OF MYOCARDIAL INFARCTION. THE UPPER REFERENCE LIMIT (URL) OF TROPONIN, DEFINED THE 99TH PERCENTILE OF cTnI DISTRIBUTION IN A REFERENCE POPULATION, HAS BEEN CONFIRMED THE DECISION THRESHOLD FOR CO DIAGNOSIS. Performed By: #### P OCGLUC #### [facility] [address] [address] [address] Kasia Nath CK [Catalytic activity/Vol] 73 U/L Normal 26-192 [facility] Comment on above: Performed By: #### P OCGLUC #### [facility] Laboratory [address] [address] [address] Kasia Nath CK.MB [Mass/Vol] 1.71 ng/mL Normal <=3.60 [facility] Comment on above: Performed By: #### P OCGLUC #### [facility] [address] [place] [address] Dr. Kasia Nath HSTROP 13.6 pg/mL Normal 4.0-51.3 [facility] [place] Comment on above: Result Comment: CUT- OFF POINTS HAVE BEEN ESTABLISHED BASED ON THE FOURTH UNIVERSAL DEFINITIONS OF MYOCARDIAL INFARCTION. THE UPPER REFERENCE LIMIT (URL) OF TROPONIN, DEFINED THE 99TH PERCENTILE OF cTnI DISTRIBUTION IN A REFERENCE POPULATION, HAS BEEN CONFIRMED THE DECISION THRESHOLD FOR CO DIAGNOSIS. Performed By: #### P OCGLUC #### [facility] [address] [place] [address] Dr. Kasia Nath CARDIAC EMERY ADMITon 023 CK [Catalytic activity/Vol] 71 U/L Normal 26-192 [facility] [place] Comment on above: Performed By: #### C BC #### [facility] [address] [place] [address] Dr. Kasia Nath CK.MB [Mass/Vol] 1.69 ng/mL Normal <=3.60 [facility] Comment on above: Performed By: #### C BC #### [facility] [address] [address] [address] Kasia Nath HSTROP 13.0 pg/mL Normal 4.0-51.3 [facility] Comment on above: Result Comment: CUT- OFF POINTS HAVE BEEN ESTABLISHED BASED ON THE FOURTH UNIVERSAL DEFINITIONS OF MYOCARDIAL INFARCTION. THE UPPER REFERENCE LIMIT (URL) OF TROPONIN, DEFINED THE 99TH PERCENTILE OF cTnI DISTRIBUTION IN A REFERENCE POPULATION, HAS BEEN CONFIRMED THE DECISION THRESHOLD FOR CO DIAGNOSIS. Performed By: #### C BC #### [facility] [address] [address] [address] Kasia Nath GRETTA 75 ng/mL Normal 9-82 [facility] [place] Comment on above: Performed By: #### C BC #### [facility] [address] [phone] Kasia Nath CBC AUTO DIFFon 01-01-2023 BASO # 0.1 103/ul Normal 0.0-0.1 [facility] [place] Comment on above: Performed By: #### C BC #### [facility] [address] [place] [address] Dr. Kasia Nath Basophils/100 WBC (Bld) 1.1 % Normal 0.2-2.0 [facility] Comment on above: Performed By: #### C BC #### [facility] [address] [place] [address] Dr. Kasia Nath EO # 0.2 103/ul Normal 0.0-0.7 [facility] [place] Comment on above: Performed By: #### C BC #### [facility] [address] [place] [address] Dr. Kasia Nath Eosinophils/100 WBC (Bld) 2.9 % Normal 0.9-7.0 [facility] [place] Comment on above: Performed By: #### C BC #### [facility] [address] [place] [address] Dr. Kasia Nath Erythrocyte distribution width (RBC) [Ratio] 13.8 % Normal 11.0-15.0 [facility] [place] Comment on above: Performed By: #### C BC #### [facility] [address] [place] [address] Dr. Kasia Nath Hematocrit (Bld) [Volume fraction] 36.2 % Normal 36.0-48.0 [facility] [place] Comment on above: Performed By: #### C BC #### [facility] [address] [place] [address] Dr. Kasia Nath Hemoglobin (Bld) [Mass/Vol] 12.1 g/dL Normal 12.0-16.0 [facility] [place] Comment on above: Performed By: #### C BC #### [facility] [address] [place] [address] Dr. Kasia Nath IG # 0.02 10e3/ul Normal 0.00-0.03 [facility] [place] Comment on above: Performed By: #### C BC #### [facility] [address] [place] [address] Dr. Kasia Nath IG % 0.3 % Normal 0.0-0.5 [facility] [place] Comment on above: Performed By: #### C BC #### [facility] [address] [place] [address] Dr. Kasia Nath LYMPH # 1.5 103/ul Normal 1.2-3.8 [facility] [place] Comment on above: Performed By: #### C BC #### [facility] [address] [place] [address] Dr. Kasia Nath Lymphocytes/100 WBC (Bld) 19.9 % Critically low 20.5-60.0 [facility] [place] Comment on above: Performed By: #### C BC #### [facility] [address] [place] [address] Dr. Kasia Nath MANUAL DIFF REQ NO Normal [facility] Comment on above: Performed By: #### C BC #### [facility] [address] [place] [address] Dr. Kasia Nath MCH (RBC) [Entitic mass] 29.7 pg Normal 26.7-34.0 [facility] [place] Comment on above: Performed By: #### C BC #### [facility] [address] [place] [address] Dr. Kasia Nath MCHC (RBC) [Mass/Vol] 33.4 g/dL Normal 29.9-35.2 [facility] [place] Comment on above: Performed By: #### C BC #### [facility] [address] [place] [address] Dr. Kasia Nath MCV (RBC) [Entitic vol] 88.9 fL Normal 81.0-99.0 [facility] Comment on above: Performed By: #### C BC #### [facility] [address] [address] [address] Kasia Nath MONO # 0.6 103/ul Normal 0.3-0.8 [facility] [place] Comment on above: Performed By: #### C BC #### [facility] [address] [address] [address] Kasia Nath Monocytes/100 WBC (Bld) 8.0 % Normal 1.7-12.0 [facility] Comment on above: Performed By: #### C BC #### [facility] [address] [place] [address] Dr. Kasia Nath NEUT # 5.1 103/ul Normal 1.4-6.5 [facility] [place] Comment on above: Performed By: #### C BC #### [facility] [address] [place] [address] Dr. Kasia Nath Neutrophils/100 WBC (Bld) 67.8 % Normal 43.0-75.0 [facility] [place] Comment on above: Performed By: #### C BC #### [facility] [address] [place] [address] Dr. Kasia Nath Platelet mean volume (Bld) [Entitic vol] 10.4 fL Normal 9.5-13.5 [facility] [place] Comment on above: Performed By: #### C BC #### [facility] [address] [place] [address] Dr. Kasia Nath PLT 200 103/ul Normal 150-450 [facility] Comment on above: Performed By: #### C BC #### [facility] [address] [place] [address] Dr. Kasia Nath RBC 4.07 106/ul Critically low 4.20-5.40 [facility] Comment on above: Performed By: #### C BC #### [facility] [address] [place] [address] Dr. Kasia Nath WBC 7.5 103/ul Normal 4.0-11.0 [facility] [place] Comment on above: Performed By: #### C BC #### [facility] [address] [place] [address] CHEST WO CONon [...] two extremes (Agatston score 101-1000). https://pubs.rsna.org /doi/abs/10.1148/radi [email or web address] Electronically authenticated by: RENETTA MICHAELS Date: 2023-01-01 14:55 Normal [facility] Covid-19 PCR (CVDTBH)on 12-14 SARS-CoV-2 (COVID-19) RNA FERN+probe Ql (Unsp spec) Not detected Normal NOT DETECTED [facility] Comment on above: Result Comment: When diagnostic [...] for this test is supported by the [place] of Health and Human Service's declaration that [...] longer be used). Performed By: #### C [facility] #### [facility] [address] [place] [address] Dr. Kasia Nath ECHO LIMITED STUDYon 023 ECHO LIMITED STUDY Patient: LEONA CALL Exam Date: 01/01/2023 : 1945 Gender:F Ordering : LD GUERRERO . Admission #: [id number] Family : Order #: [id number] CLICK HERE TO VIEW EXAM ECHOCARDIOGRAM REPORT [...] Kaplan M.D. on 01/01/2023 at 13:19 Normal [facility] [place] GLYCOHEMOGLOBIN A1Con 2022 ADA RECOMMENDATION SEE BELOW Normal [facility] Comment on above: Result Comment: ADA RECOMMENDED LIMIT 4.0 - 6.0 ADA THERAPEUTIC TARGET < 7.0 ACTION SUGGESTED > 7.0 Performed By: #### P OCGLUC #### [facility] [address] [address] [address] Kasia Nath Glucose [Mass/Vol] 318 mg/dL Normal [facility] Comment on above: Performed By: #### P OCGLUC #### [facility] [address] [address] [address] Kasia Nath HbA1c (Bld) [Mass fraction] 12.7 % Critically high 4.5-6.2 [facility] [place] Comment on above: Performed By: #### P OCGLUC #### [facility] [address] [address] [address] Kasia Nath POINT OF CARE GLUCOSEon 12-14 Glucose [Mass/Vol] 162 mg/dL Critically high 74-106 [facility] Comment on above: Performed By: #### P OCGLUC ####[facility] [address] [address]Dr. Kasia Nath Glucose [Mass/Vol] 213 mg/dL Critically high 74-106 [facility] Comment on above: Performed By: #### P OCGLUC ####[facility] [address] [place] [address]Dr. Kasia Nath Glucose [Mass/Vol] 248 mg/dL Critically high 74-106 [facility] Comment on above: Performed By: #### P OCGLUC #### [facility] [address] [place] [address] Dr. Kasia Nath PROF CHEM 8 (BAS METB)on Anion gap [Moles/Vol] 11.8 mmol/L Normal [facility] Comment on above: Performed By: #### C BC #### [facility] [address] [place] [address] Dr. Kasia Nath Calcium [Mass/Vol] 8.4 mg/dL Critically low 8.5-10.1 [facility] Comment on above: Performed By: #### C BC #### [facility] [address] [place] [address] Dr. Kasia Nath Chloride [Moles/Vol] 102 mmol/L Normal 98-107 [facility] [place] Comment on above: Performed By: #### C BC #### [facility] [address] [place] [address] Dr. Kasia Nath CO2 [Moles/Vol] 28.4 mmol/L Normal 21.0-32.0 [facility] Comment on above: Performed By: #### C BC #### [facility] [address] [place] [address] Dr. Kasia Nath Creatinine [Mass/Vol] 1.09 mg/dL Critically high 0.55-1.02 [facility] [place] Comment on above: Performed By: #### C BC #### [facility] [address] [place] [address] Dr. Kasia Nath EGFR-AF SURINAMESE 59 mL/min/1.73m2 Critically low >=60 [facility] [place] Comment on above: Performed By: #### C BC #### [facility] [address] [place] [address] Dr. Kasia Nath EGFR-NON AF SURINAMESE 49 mL/min/1.73m2 Critically low >=60 [facility] [place] Comment on above: Performed By: #### C BC #### [facility] [address] [place] [address] Dr. Kasia Nath Glucose [Mass/Vol] 247 mg/dL Critically high 74-106 [facility] Comment on above: Performed By: #### C BC #### [facility] [address] [address] [address] Kasia Nath Potassium [Moles/Vol] 4.2 mmol/L Normal 3.5-5.1 [facility] [place] Comment on above: Performed By: #### C BC #### [facility] [address] [address] [address] Kasia Nath Sodium [Moles/Vol] 138 mmol/L Normal 136-[address] [facility] Comment on above: Performed By: #### C BC #### [facility] [address] [address] [address] Kasia Nath Urea nitrogen [Mass/Vol] 28.0 mg/dL Critically high 7.0-18.0 [facility] [place] Comment on above: Performed By: #### C BC #### [facility] [address] [address] [address] Kasia Nath Urea nitrogen/Creatinine [Mass ratio] 25.7 mg/mg Normal [facility] [place] Comment on above: Performed By: #### C BC #### [facility] [address] [address] [address] Kasia Nath XR CHEST 1 Von [...] ALVAREZ Date: 2023-01-01 05:38 Normal [facility] [place] ECHOCARDIO M/2D COMPLETEon 1 11-15-2021 ECHOCARDIO M/2D COMPLETE Patient: JOE CALL Exam Date: 09/15/2022 : 1945 Gender:F Ordering : YAMEL [facility]CRACKEN [facility] Admission #: [id number] Family : DR SHANTEL STEVEN M.D. Order #: [id number] CLICK HERE TO VIEW EXAM ECHOCARDIOGRAM REPORT [...] M.D. on 09/15/2022 at 18:17 Normal [facility] GI PANEL (PCR)on 05-02-2022 Adenovirus F 40/41 Not detected Normal NOT DETECTED [facility] Comment on above: Performed By: #### P OCGLUC #### [facility] [address] [address] [address] Kasia Nath Astrovirus Not detected Normal NOT DETECTED [facility] Comment on above: Performed By: #### P OCGLUC #### [facility] [address] [address] [address] Kasia Nath C. Diff toxin A/B Not detected Normal NOT DETECTED [facility] Comment on above: Performed By: #### P OCGLUC #### [facility] [address] [address] [address] Kasia Nath Campylobacter Not detected Normal NOT DETECTED [facility] Comment on above: Performed By: #### P OCGLUC #### [facility] [address] [address] [address] Kasia Nath Cryptosporidium Not detected Normal NOT DETECTED [facility] Comment on above: Performed By: #### P OCGLUC #### [facility] [address] [address] [address] Kasia Nath Cyclos. Cayetanensis Not detected Normal NOT DETECTED [facility] Comment on above: Performed By: #### P OCGLUC #### [facility] [address] [place] [address] Dr. Kasia Nath E. Coli O157 Not Applicable Normal Not Applicable [facility] Comment on above: Performed By: #### P OCGLUC #### [facility] [address] [address] [address] Kasia Nath E. histolytica Not detected Normal NOT DETECTED [facility] Comment on above: Performed By: #### P OCGLUC #### [facility] [address] [address] [address] Kasia Nath EAEC Not detected Normal NOT DETECTED [facility] Comment on above: Performed By: #### P OCGLUC #### [facility] [address] [address] [address] Kasia Nath EIEC Not detected Normal NOT DETECTED [facility] Comment on above: Performed By: #### P OCGLUC #### [facility] [address] [place] [address] Dr. Kasia Nath EPEC Detected Abnormal NOT DETECTED [facility] Comment on above: Performed By: #### P OCGLUC #### [facility] [address] [place] [address] Dr. Kasia Nath ETEC Not detected Normal NOT DETECTED [facility] Comment on above: Performed By: #### P OCGLUC #### [facility] [address] [place] [address] Dr. Kasia Terrazas Lamblijose Not detected Normal NOT DETECTED [facility] Comment on above: Performed By: #### P OCGLUC #### [facility] [address] [address] [address] Kasia KHAN CONTROLS PASSED Normal [facility] Comment on above: Performed By: #### P OCGLUC #### [facility] [address] [address] [address] Kasia FRAIRE HEADER GI PANEL BACTERIA Normal [facility] Comment on above: Performed By: #### P OCGLUC #### [facility] [address] [address] [address] Kasia GE ECOLI GI PANEL DIARRHEAGENIC E.COLI / SHIGELLA Normal [facility] [place] Comment on above: Performed By: #### P OCGLUC #### [facility] [address] [address] [address] Kasia GE INFO SEE BELOW Normal [facility] Comment on above: Result Comment: EAEC - Enteroaggregative E. Coli EPEC- Enteropathogenic E. Coli ETEC- Enterotoxigenic E. Coli lt/st STEC- Shigella-like toxin-producing E. Coli stx1/stx2 EIEC- Shigella/Enteroinvasive E. Coli Performed By: #### P OCGLUC #### [facility] [address] [address] [address] Kasia GE PARASITES GI PANEL PARASITES Normal [facility] Comment on above: Performed By: #### P OCGLUC #### [facility] [address] [address] [address] Kasia GE VIRUS GI PANEL VIRUSES Normal [facility] Comment on above: Performed By: #### P OCGLUC #### [facility] [address] [address] [address] Kasia Nath Norovirus GI/GII Not detected Normal NOT DETECTED [facility] Comment on above: Performed By: #### P OCGLUC #### [facility] [address] [address] [address] Yilan Nath P. Shigelloides Not detected Normal NOT DETECTED [facility] Comment on above: Performed By: #### P OCGLUC #### [facility] [address] [place] [address] Dr. Kasia Nath Rotavirus A Not detected Normal NOT DETECTED [facility] Comment on above: Performed By: #### P OCGLUC #### [facility] [address] [place] [address] Dr. Kasia Nath Salmonella Not detected Normal NOT DETECTED [facility] Comment on above: Performed By: #### P OCGLUC #### [facility] [address] [place] [address] Dr. Kasia Nath Sapovirus Not detected Normal NOT DETECTED [facility] Comment on above: Performed By: #### P OCGLUC #### [facility] [address] [place] [address] Dr. Kasia Nath STEC Not detected Normal NOT DETECTED [facility] Comment on above: Performed By: #### P OCGLUC #### [facility] [address] [place] [address] Dr. Kasia Nath Vibrio Not detected Normal NOT DETECTED [facility] Comment on above: Performed By: #### P OCGLUC #### [facility] [address] [place] [address] Dr. Kasia Nath Vibrio Cholera Not detected Normal NOT DETECTED [facility] Comment on above: Performed By: #### P OCGLUC #### [facility] [address] [place] [address] Dr. Kasia Nath Y. Enterocolitica Not detected Normal NOT DETECTED [facility] Comment on above: Performed By: #### P OCGLUC #### [facility] [address] [place] [address] Dr. Kasia Nath OCC BLD IMMUNO SCREENon 04-13 OCCULT BLOOD Negative Normal NEGATIVE [facility] Comment on above: Performed By: #### C BC #### [facility] [address] [place] [address] Dr. Kasia Nath XR knee BI 4Von 08-25-2021 XR knee BI 4V [facility] [employer] Other XR knee BI 4V [facility] Main [facility] [employer] Other XR knee BI 4V [address] [place] [address] [employer] Other [place] [address] [facility] [employer] Other XR knee BI 4V XRay Report [facility] [employer] Other XR knee BI 4V Signed [employer] Other XR knee BI 4V Patient: Joe Call MR#: [id number] [place] [employer] Other XR knee BI 4V 0 [place] [employer] Other XR knee BI 4V : 1945 Acct:[id number] [place] [employer] Other XR knee BI 4V Age/Sex: 76 / F ADM Date: 08/25/21 [employer] Other XR knee BI 4V Loc: [facility] Room: Type : [facility] [employer] Other XR knee BI 4V Attending Dr: Akbar Cui II, MD [employer] Other XR knee BI 4V Ordering Provider: Akbar Cui MD [employer] Other XR knee BI 4V Date of Service: 08/25/21 [employer] Other XR knee BI 4V XR/XR knee BI 4V: Pain in right knee;Pain in left knee [employer] Other XR knee BI 4V Copies to: Akbar Cui MD [employer] Other XR knee BI 4V XR knee BI 4V 08/25/2021 1:32 PM [employer] Other XR knee BI 4V SIGNS AND SYMPTOMS: Bilateral knee pain with decreased range of motion, weakness [employer] Other XR knee BI 4V PROTOCOL: Frontal, lateral, and sunrise views of the bilateral knees [employer] Other XR knee BI 4V COMPARISON: None [employer] Other XR knee BI 4V FINDINGS: [employer] Other XR knee BI 4V There is mild narrowing of the medial weightbearing joint spaces. There is mild patellofemoral [employer] Other XR knee BI 4V joint space loss. There is spurring of the poles of the patella bilaterally. There is mild lateral [employer] Other XR knee BI 4V patellar subluxation bilaterally. There is no evidence of acute displaced fracture. Well-corticated [employer] Other XR knee BI 4V ossific structures o r separate from the right medial weightbearing joint space. This may represent a [employer] Other XR knee BI 4V calcified loose bodies. [employer] Other XR knee BI 4V XR/XR knee BI 4V [employer] Other XR knee BI 4V IMPRESSION: [employer] Other XR knee BI 4V Degenerative changes are noted are noted bilaterally, as above. [employer] Other XR knee BI 4V Well-corticated ossific structures or separate from the right medial weightbearing joint space. This [employer] Other XR knee BI 4V may represent a calcified loose bodies. [employer] Other XR knee BI 4V No acute displaced fracture. [employer] Other XR knee BI 4V There is mild latera l subluxation of the patella within the patellofemoral joint space bilaterally. [employer] Other XR knee BI 4V Impression dictated by: Emery Lobo M.D.08/25/2021 2:51 PM [employer] Other XR knee BI 4V Dictation Location: [place] [address] [employer] Other XR knee BI 4V Transcribed By: [facility] 08/25/21 1451 [employer] Other XR knee BI 4V Dictated By: Emery Lobo II, MD 08/25/21 1447 [employer] Other XR knee BI 4V Signed By: [employer] Other XR knee BI 4V 08/25/21 1451 [employer] Other XR pelvis 1-2Von 08-25-2021 XR pelvis 1-2V XR/XR pelvis 1-2V: Pain in right knee;Pain in left knee [employer] Other XR pelvis 1-2V XR pelvis 1-2V 08/25/2021 1:32 PM [employer] Other XR pelvis 1-2V SIGNS AND SYMPTOMS: Bilateral generalized knee pain, limited range of motion with weakness [employer] Other XR pelvis 1-2V PROTOCOL: Frontal radiograph of the pelvis [employer] Other XR pelvis 1-2V There is mild narrowing of the weightbearing joint spaces. Mild degenerative changes are noted in [employer] Other XR pelvis 1-2V the symphysis pubis. There is no evidence of fracture or dislocation. Vascular calcifications are [employer] Other XR pelvis 1-2V present in the pelvis. [employer] Other XR pelvis 1-2V XR/XR pelvis 1-2V [employer] Other XR pelvis 1-2V No fracture or dislocation. [employer] Other XR pelvis 1-2V Mild degenerative changes are noted in the joint space of the hips. [employer] Other XR pelvis 1-2V Impression dictated by: Emery Lobo M.D.08/25/2021 2:54 PM [employer] Other XR pelvis 1-2V Transcribed By: PWS 08/25/21 [facility] [employer] Other XR pelvis 1-2V Dictated By: Emery Lobo II, MD 08/25/21 [facility] [employer] Other XR pelvis 1-2V 08/25/21 [facility] [employer] Other Vital Signs Date Time Vital Sign Value Performing Clinician Facility 06-05-2024 11:51-0400 Body height 165.1 cm MD Shantel Steven Work Phone: [facility] 06-05-2024 11:51-0400 Body mass index (BMI) [Ratio] 43.2 kg/m2 MD Shantel Steven Work Phone: [facility] 06-05-2024 11:51-0400 Body temperature 96.6 [degF] MD Shantel Steven Work Phone: [facility] 06-05-2024 11:51-0400 Body weight 117.7 kg MD Shantel Steven Work Phone: [facility] 06-05-2024 11:51-0400 Diastolic blood pressure 74 mm[Hg] MD Shantel Steven Work Phone: [facility] 06-05-2024 11:51-0400 Heart rate 63 /min MD Shantel Steven Work Phone: [facility] 06-05-2024 11:51-0400 Respiratory rate 18 /min MD Shantel Steven Work Phone: [facility] 06-05-2024 11:51-0400 SaO2% (BldA) [Mass fraction] 97 % MD Shantel Steven Work Phone: [facility] 06-05-2024 11:51-0400 Systolic blood pressure 138 mm[Hg] MD Shantel Steven Work Phone: [facility] 05-22-2024 09:18-0400 Heart rate 55 /min MD Shantel Steven Work Phone: [facility] 05-22-2024 09:09-0400 Body temperature 97.8 [degF] MD Shantel Steven Work Phone: [facility] 05-22-2024 09:09-0400 Diastolic blood pressure 64 mm[Hg] MD Shantel Steven Work Phone: [facility] 05-22-2024 09:09-0400 Respiratory rate 22 /min MD Shantel Steven Work Phone: [facility] 05-22-2024 09:09-0400 SaO2% (BldA) [Mass fraction] 94 % MD Shantel Steven Work Phone: [facility] 05-22-2024 09:09-0400 Systolic blood pressure 140 mm[Hg] MD Shantel Steven Work Phone: [facility] 05-22-2024 09:08-0400 Body height 165.1 cm MD Shantel Steven Work Phone: [facility] 05-22-2024 09:08-0400 Body weight 117.48 kg MD Shantel Steven Work Phone: [facility] 05-19-2024 14:16-0400 Body height 165.1 cm MD Shantel Steven Work Phone: [facility] 05-19-2024 14:16-0400 Body mass index (BMI) [Ratio] 43.1 kg/m2 MD Shantel Steven Work Phone: [facility] 05-19-2024 14:16-0400 Body weight 117.48 kg MD Shantel Steven Work Phone: [facility] 05-19-2024 14:16-0400 Diastolic blood pressure 72 mm[Hg] MD Shantel Steven Work Phone: [facility] 05-19-2024 14:16-0400 Heart rate 56 /min MD Shantel Steven Work Phone: [facility] 05-19-2024 14:16-0400 Systolic blood pressure 133 mm[Hg] MD Shantel Steven Work Phone: [facility] 05-07-2024 11:52-0400 Body height 165.1 cm MD Shantel Steven Work Phone: [facility] 05-07-2024 11:52-0400 Body mass index (BMI) [Ratio] 41.5 kg/m2 MD Shantel Steven Work Phone: [facility] 05-07-2024 11:52-0400 Body temperature 98.5 [degF] MD Shantel Steven Work Phone: [facility] 05-07-2024 11:52-0400 Body weight 113.39 kg MD Shantel Steven Work Phone: [facility] 05-07-2024 11:52-0400 Diastolic blood pressure 81 mm[Hg] MD Shantel Steven Work Phone: [facility] 05-07-2024 11:52-0400 Heart rate 91 /min MD Shantel Steven Work Phone: [facility] 05-07-2024 11:52-0400 Systolic blood pressure 141 mm[Hg] MD Shantel Steven Work Phone: [facility] 04-29-2024 12:54-0400 Body height 165.1 cm MD Shantel Steven Work Phone: [facility] 04-29-2024 12:54-0400 Body mass index (BMI) [Ratio] 41.5 kg/m2 MD Shantel Steven Work Phone: [facility] 04-29-2024 12:54-0400 Body weight 113.39 kg MD Shantel Steven Work Phone: [facility] 04-29-2024 12:54-0400 Diastolic blood pressure 58 mm[Hg] MD Shantel Steven Work Phone: [facility] 04-29-2024 12:54-0400 Heart rate 54 /min MD Shantel Steven Work Phone: [facility] 04-29-2024 12:54-0400 Systolic blood pressure 90 mm[Hg] MD Shantel Steven Work Phone: [facility] 04-03-2024 11:29-0400 Body height 165.1 cm MD Shantel Steven Work Phone: [facility] 04-03-2024 11:29-0400 Body mass index (BMI) [Ratio] 43.7 kg/m2 MD Shantel Steven Work Phone: [facility] 04-03-2024 11:29-0400 Body weight 119.29 kg MD Shantel Steven Work Phone: [facility] 04-03-2024 11:29-0400 Diastolic blood pressure 71 mm[Hg] MD Shantel Steven Work Phone: [facility] 04-03-2024 11:29-0400 Heart rate 56 /min MD Shantel Steven Work Phone: [facility] 04-03-2024 11:29-0400 Systolic blood pressure 116 mm[Hg] MD Shantel Steven Work Phone: [facility] 03-25-2024 15:15-0400 Body height 165.1 cm MD Shantel Steven Work Phone: [facility] 03-25-2024 15:15-0400 Body mass index (BMI) [Ratio] 43.9 kg/m2 MD Shantel Steven Work Phone: [facility] 03-25-2024 15:15-0400 Body weight 119.74 kg MD Shantel Steven Work Phone: [facility] 03-25-2024 15:15-0400 Diastolic blood pressure 87 mm[Hg] MD Shantel Steven Work Phone: [facility] 03-25-2024 15:15-0400 Heart rate 66 /min MD Shantel Steven Work Phone: [facility] 03-25-2024 15:15-0400 Systolic blood pressure 125 mm[Hg] MD Shantel Steven Work Phone: [facility] 02-15-2024 14:18-0400 Body height 165.1 cm [facility] 02-15-2024 14:18-0400 Body mass index (BMI) [Ratio] 38.6 kg/m2 [facility] 02-15-2024 14:18-0400 Body weight 105.23 kg [facility] 02-15-2024 14:18-0400 Diastolic blood pressure 66 mm[Hg] [facility] 02-15-2024 14:18-0400 Heart rate 55 /min [facility] 02-15-2024 14:18-0400 Systolic blood pressure 114 mm[Hg] [facility] 01-18-2024 10:23-0500 Body height 165.1 cm [facility] 01-18-2024 10:23-0500 Body mass index (BMI) [Ratio] 43.2 kg/m2 [facility] 01-18-2024 10:23-0500 Body weight 117.93 kg [facility] 01-18-2024 10:23-0500 Diastolic blood pressure 70 mm[Hg] [facility] 01-18-2024 10:23-0500 Heart rate 98 /min [facility] 01-18-2024 10:23-0500 SaO2% (BldA) [Mass fraction] 65 % [facility] 01-18-2024 10:23-0500 Systolic blood pressure 110 mm[Hg] [facility] 10-23-2023 16:00-0500 Body height 165.1 cm Jaleesa Hookerphill Other [employer] Other 10-23-2023 16:00-0500 Body mass index (BMI) [Ratio] 44.63 kg/m2 Jaleesa Kochs Other [employer] Other 10-23-2023 16:00-0500 Body temperature 96.8 [degF] Jaleesa Kochs Other [employer] Other 10-23-2023 16:00-0500 Body weight 121.66 kg Jaleesa Kochs Other [employer] Other 10-23-2023 16:00-0500 Diastolic blood pressure 60 mm[Hg] Jaleesa Kochs Other [employer] Other 10-23-2023 16:00-0500 Respiratory rate 18 /min Jaleesa Kochs Other [employer] Other 10-23-2023 16:00-0500 SaO2% (BldA) [Mass fraction] 99 % Jaleesa Kcohs Other [employer] Other 10-23-2023 16:00-0500 Systolic blood pressure 124 mm[Hg] Jaleesa Kochs Other [employer] Other 10-18-2023 13:45-0500 Body height 165.1 cm Shantel Steven Other [employer] Other 10-18-2023 13:45-0500 Body mass index (BMI) [Ratio] 44.86 kg/m2 Shanetl Steven Other [employer] Other 10-18-2023 13:45-0500 Body temperature 97.3 [degF] Shantel Steven Other [employer] Other 10-18-2023 13:45-0500 Body weight 122.29 kg Shantel Steven Other [employer] Other 10-18-2023 13:45-0500 Diastolic blood pressure 84 mm[Hg] Shantel Steven Other [employer] Other 10-18-2023 13:45-0500 SaO2% (BldA) [Mass fraction] 97 % Shantel Steven Other [employer] Other 10-18-2023 13:45-0500 Systolic blood pressure 132 mm[Hg] Shantel Steven Other [employer] Other 09-04-2023 14:00-0400 Body height 165.1 cm Shantel Steven Other [employer] Other 09-04-2023 14:00-0400 Body mass index (BMI) [Ratio] 43.06 kg/m2 Shantel Steven Other [employer] Other 09-04-2023 14:00-0400 Body weight 117.39 kg Shantel Steven Other [employer] Other 09-04-2023 14:00-0400 Diastolic blood pressure 69 mm[Hg] Shantel Steven Other [employer] Other 09-04-2023 14:00-0400 Systolic blood pressure 127 mm[Hg] Shantel Steven Other [employer] Other 07-17-2023 10:00-0400 Body height 165.1 cm Shantel Steven Other [employer] Other 07-17-2023 10:00-0400 Body mass index (BMI) [Ratio] 43.03 kg/m2 Shantel Steven Other [employer] Other 07-17-2023 10:00-0400 Body weight 117.3 kg Shantel Steven Other [employer] Other 07-17-2023 10:00-0400 Diastolic blood pressure 76 mm[Hg] Shantel Steven Other [employer] Other 07-17-2023 10:00-0400 Systolic blood pressure 164 mm[Hg] Shantel Steven Other [employer] Other 04-30-2023 14:30-0400 Body height 165.1 cm Shantel Steven Other [employer] Other 04-30-2023 14:30-0400 Body mass index (BMI) [Ratio] 43.43 kg/m2 Shantel Steven Other [employer] Other 04-30-2023 14:30-0400 Body weight 118.39 kg Shantel Steven Other [facility] Other 04-30-2023 14:30-0400 Diastolic blood pressure 75 mm[Hg] Shantel Steven Other [employer] Other 04-30-2023 14:30-0400 Systolic blood pressure 135 mm[Hg] Shantel Steven Other [employer] Other 03-09-2023 12:15-0400 Body height 165.1 cm Shantel Steven Other [employer] Other 03-09-2023 12:15-0400 Body mass index (BMI) [Ratio] 43.59 kg/m2 Shantel Steven Other [employer] Other 03-09-2023 12:15-0400 Body weight 118.84 kg Shantel Steven Other [employer] Other 03-09-2023 12:15-0400 Diastolic blood pressure 82 mm[Hg] Shantel Steven Other [employer] Other 03-09-2023 12:15-0400 SaO2% (BldA) [Mass fraction] 97 % Shantel Steven Other [employer] Other 03-09-2023 12:15-0400 Systolic blood pressure 130 mm[Hg] Shantel Steven Other [employer] Other 02-20-2023 10:00-0400 Body height 165.1 cm Shantel Steven Other [employer] Other 02-20-2023 10:00-0400 Body mass index (BMI) [Ratio] 41.93 kg/m2 Shantel Steven Other [employer] Other 02-20-2023 10:00-0400 Body weight 114.31 kg Shantel Steven Other [employer] Other 02-20-2023 10:00-0400 Diastolic blood pressure 84 mm[Hg] Shantel Steven Other [employer] Other 02-20-2023 10:00-0400 Systolic blood pressure 132 mm[Hg] Shantel Steven Other [facility] Other 08-04-2022 13:33-0400 Blood Pressure Location [facility] 08-04-2022 13:33-0400 Diastolic blood pressure 88 mm[Hg] [facility] 08-04-2022 13:33-0400 Heart rate 76 /min Bin [facility] 08-04-2022 13:33-0400 Respiratory rate 16 /min Bin [facility] 08-04-2022 13:33-0400 Systolic blood pressure 130 mm[Hg] Bin [facility] 08-25-2021 14:30-0400 Body height 165.1 cm [employer] Other [employer] Other 08-25-2021 14:30-0400 Body mass index (BMI) [Ratio] 43.26 kg/m2 [employer] Other [facility] Other 08-25-2021 14:30-0400 Body weight 117.94 kg [employer] Other [employer] Other Encounters Encounter Date Encounter Type Care Provider Facility Start: 06-05-2024 End: 06-05-2024 ambulatory MD Shantel Steven Work Phone: [facility] Work Phone: Start: 06-05-2024 End: 06-05-2024 Patient encounter procedure MD Shantel Steven Work Phone: [facility] Work Phone: Start: 06-01-2024 Non-patient / Non-visit MD Alessia Steven Work Phone: [facility] Work Phone: Start: 05-26-2024 Non-patient / Non-visit MD Alessia Steven Work Phone: [facility] Work Phone: Start: 05-22-2024 End: 05-22-2024 Emergency department patient visit MD Shantel Steven Work Phone: [facility] Work Phone: Start: 05-20-2024 Non-patient / Non-visit MD Alessia Steven Work Phone: [facility] Work Phone: Start: 05-19-2024 End: 05-19-2024 ambulatory MD Shantel Steven Work Phone: [facility] Work Phone: Start: 05-19-2024 End: 05-19-2024 Patient encounter procedure MD Shantel Steven Work Phone: [facility] Work Phone: Start: 05-07-2024 End: 05-07-2024 ambulatory MD Shantel Steven Work Phone: [facility] Work Phone: Start: 05-07-2024 End: 05-07-2024 Patient encounter procedure MD Shantel Steven Work Phone: [facility] Work Phone: Start: 05-06-2024 Non-patient / Non-visit MD Alessia Steven Work Phone: [facility] Work Phone: Start: 05-05-2024 Non-patient / Non-visit MD Alessia Steven Work Phone: [facility] Work Phone: Start: 05-04-2024 Non-patient / Non-visit MD Alessia Steven Work Phone: [facility] Work Phone: Start: 05-02-2024 Non-patient / Non-visit MD Alessia Steven Work Phone: [facility] Work Phone: Start: 05-01-2024 Non-patient / Non-visit MD Alessia Steven Work Phone: [facility] Work Phone: Start: 04-30-2024 Non-patient / Non-visit MD Alessia Steven Work Phone: [facility] Work Phone: Start: 04-29-2024 End: 04-29-2024 Patient encounter procedure MD Shantel Steven Work Phone: [facility] Work Phone: Start: 04-03-2024 End: 04-03-2024 ambulatory MD Shantel Steven Work Phone: [facility] Work Phone: Start: 04-03-2024 End: 04-03-2024 Patient encounter procedure MD Shantel Steven Work Phone: [facility] Work Phone: Start: 04-01-2024 Non-patient / Non-visit MD Alessia Steven Work Phone: [facility] Work Phone: Start: 03-31-2024 Non-patient / Non-visit MD Alessia Steven Work Phone: [facility] Work Phone: Start: 03-28-2024 Non-patient / Non-visit MD Alessia Steven Work Phone: [facility] Work Phone: Start: 03-27-2024 Non-patient / Non-visit MD Alessia Steven Work Phone: [facility] Work Phone: Start: 03-26-2024 Non-patient / Non-visit MD Alessia Steven Work Phone: [facility] Work Phone: Start: 03-25-2024 End: 03-25-2024 Patient encounter procedure MD Shantel Steven Work Phone: [facility] Physician [facility] Work Phone: Start: 03-13-2024 End: 03-13-2024 Patient encounter procedure MD Shantel Steven Work Phone: [facility] [address] Work Phone: Start: 03-13-2024 End: 03-13-2024 ambulatory MD Shantel Steven Work Phone: [facility] Work Phone: Start: 03-07-2024 End: 03-07-2024 ambulatory [facility] Start: 02-19-2024 ambulatory Facility:[facility] Start: 02-15-2024 End: 02-15-2024 ambulatory [facility] Work Phone: Start: 02-15-2024 End: 02-15-2024 Patient encounter procedure [facility] Work Phone: Start: 01-29-2024 Non-patient / Non-visit [facility] Work Phone: Start: 01-24-2024 Non-patient / Non-visit [facility] Work Phone: Start: 01-22-2024 Non-patient / Non-visit [facility] Work Phone: Start: 01-18-2024 End: 01-18-2024 Patient encounter procedure [facility] Work Phone: Start: 01-15-2024 Non-patient / Non-visit [facility] Work Phone: Start: 01-04-2024 Non-patient / Non-visit [facility] Work Phone: Start: 12-18-2023 End: 12-18-2023 ambulatory Shantel Steven Other [employer] Other Start: 12-18-2023 Telephone encounter Shantel Steven [facility] Start: 11-19-2023 End: 11-19-2023 ambulatory Shantel Steven Other [employer] Other Start: 11-19-2023 Telephone encounter Shantel Steven [facility] Start: 10-23-2023 End: 10-23-2023 ambulatory Aziz Bakhous Other [employer] Other Start: 10-23-2023 Office outpatient ne w 30 minutes Aziz Bakhous [facility] Start: 10-22-2023 End: 10-22-2023 ambulatory Shantel Steven Other [employer] Other Start: 10-22-2023 Telephone encounter Shantel Steven [facility] Start: 10-18-2023 End: 10-18-2023 ambulatory Shantel Steven Other [employer] Other Start: 10-18-2023 Office outpatient vi sit 15 minutes Shantel Steven [facility] Start: 09-07-2023 End: 09-07-2023 ambulatory Shantel Steven Other [employer] Other Start: 09-07-2023 Telephone encounter Shantel Steven [facility] Start: 09-04-2023 End: 09-04-2023 ambulatory Shantel Steven Other [employer] Other Start: 09-04-2023 Office outpatient vi sit 25 minutes Shantel Steven [facility] Start: 08-23-2023 End: 08-23-2023 ambulatory Shantel Steven Other [employer] Other Start: 08-23-2023 Telephone encounter Shantel Steven [facility] Start: 08-17-2023 End: 08-17-2023 ambulatory [facility] Start: 07-23-2023 Telephone encounter Shantel Steven [facility] Start: 07-23-2023 End: 07-23-2023 ambulatory [facility] [employer] Other Start: 07-17-2023 End: 07-17-2023 ambulatory Shantel Steven Other [employer] Other Start: 07-17-2023 Office outpatient vi sit 25 minutes Shantel Steven [facility] Start: 05-30-2023 End: 05-30-2023 ambulatory Shantel Steven Other [employer] Other Start: 05-30-2023 Telephone encounter Shantel Steven [facility] Start: 05-22-2023 End: 05-22-2023 ambulatory Shantel Steven Other [employer] Other Start: 05-22-2023 Telephone encounter Shantel Steven [facility] Start: 05-16-2023 End: 05-16-2023 ambulatory Shantel Steven Other [employer] Other Start: 05-16-2023 Telephone encounter Shantel Steven [facility] Start: 05-07-2023 End: 05-07-2023 ambulatory Shantel Steven Other [employer] Other Start: 05-07-2023 Telephone encounter Shantel Steven [facility] Start: 04-30-2023 End: 04-30-2023 ambulatory Shantel Steven Other [employer] Other Start: 04-30-2023 Office outpatient vi sit 25 minutes Shantel Steven [facility] Start: 04-25-2023 End: 04-25-2023 ambulatory RICA KAPLAN [facility] Other Start: 04-25-2023 Telephone encounter Shantel Steven [facility] Start: 04-12-2023 End: 04-12-2023 ambulatory Shantel Steven Other [employer] Other Start: 04-12-2023 Telephone encounter Shantel Steven [facility] Start: 03-09-2023 End: 03-09-2023 ambulatory Shantel Steven Other [employer] Other Start: 03-09-2023 Office outpatient vi sit 15 minutes Shantel Steven [facility] Start: 03-07-2023 End: 03-07-2023 ambulatory Shantel Steven Other [employer] Other Start: 03-07-2023 Telephone encounter Shantel Steven [facility] Start: 03-06-2023 End: 03-06-[address] SHANTEL STEVEN Facility:[facility] Start: 03-05-2023 End: 03-05-2023 ambulatory Shantel Steven Other [facility] Other Start: 03-05-2023 Telephone encounter Shantel Steven [facility] Start: 02-26-2023 End: 02-26-2023 ambulatory Shantel Steven Other [facility] Other Start: 02-26-2023 Telephone encounter Shantel Steven [facility] Start: 02-24-2023 End: 02-24-[address] SHANTEL STEVEN Facility:[facility]1 Start: 02-23-2023 End: 02-23-2023 ambulatory Shantel Steven Other [facility] Other Start: 02-23-2023 Telephone encounter Shantel Steven [facility] Start: 02-20-2023 End: 02-20-2023 ambulatory Shantel Steven Other [facility] Other Start: 02-20-2023 Transitional care luz misha srvc 14 day discharge Shantel Steven [facility] Start: 02-16-2023 End: 02-16-2023 ambulatory Shantel Steven Other [facility] Other Start: 02-16-2023 Telephone encounter Shantel Steven [facility] Start: 02-13-2023 End: 02-14-[address] SHANTEL STEVEN Facility:[facility] Start: 02-02-2023 End: 02-02-2023 ambulatory Shantel Steven Other [facility] Other Start: 02-02-2023 Telephone encounter Shantel Tenisha [facility] Start: 01-16-2023 End: 01-17-[address] DOCTOR CARMONA Facility:[facility] Start: 01-05-2023 End: 01-05-2023 ambulatory BIN ROJAS Facility:[facility] Start: 01-01-2023 End: 01-02-2023 ambulatory ANALISA BRYANT Facility:[facility] Start: 11-29-2022 End: 11-29-2022 ambulatory Shantel Steven Other [facility] Other Start: 11-29-2022 Telephone encounter Shantel Tenisha [facility] Start: 11-27-2022 End: 11-27-2022 ambulatory Shantel Steven Other [facility] Other Start: 11-27-2022 Telephone encounter Shantel Tenisha [facility] Start: 11-24-2022 End: 11-24-2022 ambulatory Shantel Steven Other [facility] Other Start: 11-24-2022 Telephone encounter Shantel Steven [facility] Start: 11-06-2022 ambulatory YAMEL MCCRACKEN Facility :[facility] Start: 09-15-2022 End: 09-16-[address] SHANTEL STEVEN Facility:[facility] Start: 08-04-2022 End: 08-04-2022 Patient encounter procedure Bin SORENSON General Surgery [facility] Start: 05-02-2022 End: 05-02-[address] SHANTEL STEVEN Facility: Start: 08-25-2021 Office outpatient ne w 45 minutes Akbar Gardneriswendy STEVENSON [facility] Start: 08-09-2017 End: 08-12-2017 Ambulatory PROVIDER UNKNOWN Facility:[facility] Procedures Date Procedure Procedure Detail Performing [...] Activity Detail Author Start: 05-07-2024 Patient referral [facility] Work Phone: Start: 05-04-2024 Blood Culture 1 Blood Culture 1 [facility] Start: 02-15-2024 Patient referral [facility] Work Phone: Comprehensive metabo lic 2000 panel - Serum or Plasma [facility] CT Abdomen and Pelvi s WO contrast [facility] Microalbumin [Mass/v olume] in Urine [facility] Patient referral [facility] Work Phone: Renal function 1999 panel - Serum or Plasma [facility] Immunizations Immunization Date Immunization Notes Care Provider Fa cility 01-18-2024 Pneumococcal Conjugate Vaccine, 20 valent [facility] 09-04-2023 influenza, high dose seasonal, preservative-free Shantel Steven Other [facility] [employer] [facility] Other 09-04-2023 influenza virus vaccine, unspecified formulation [facility] 02-04-2021 COVID-19 mRNA, Comirnaty (Pfizer) [facility] 01-21-2021 COVID-19 mRNA, Comirnaty (Pfizer) [facility] 10-09-2018 influenza virus vaccine, split virus (incl. purified surface antigen) Shantel Steven Other [facility] [employer] Other 10-09-2018 influenza virus vaccine, unspecified formulation [facility] NEGATED: Highlighted row has not occurred!08-21-2019 influenza virus vaccine, split virus (incl. purified surface antigen) Shantel Steven Other [facility] [employer] Other Payers Date Payer Category Payer Self-pay [id number] 1958 Medicare [id number] 1958 Self-pay [id number] 1945 Unknown [id number] 2.16.84 [id number] 1945 Unknown [id number] 2.16.84 [id number] 1945 Unknown [id number] 2.16.84 [id number] 1945 Unknown [id number] 2.16.84 [id number] 1946 Unknown [id number] 2.16.84 [id number] 1946 Unknown [id number] 2.16.84 [id number] 1946 Unknown [id number] 2.16.84 [id number] 1946 Unknown [id number] 2.16.84 [id number] 1945 Unknown [id number] 2.16.84 [id number] Unknown Unknown [id number] 2.16.8 [id number] Unknown [id number] 2.16.8 [id number] Social History Date Type Detail Facility Sex Assigned At [facility] [employer] Other Start: 08-04-2022 End: 06-05-2024 Tobacco smoking status Ex-smoker (finding) General [facility] Tobacco smoking status Never Gener al Surgery [facility] Start: 1945 Sex Assigned At Female F [facility] Medical Equipment Procedure Code Equipment Code Equipment Origin al Text Equipment Identifier Dates Blood Sugar Diagnostic (True Metrix Glucose Test Strip) strip Start: 03-31-2024 Pen Needle, Diab etic (Comfort Ez Pen [place]) 33 gauge x 5/32 needle Start: 03-25-2024 Blood Sugar Diagnostic (True Metrix Glucose Test Strip) strip Start: 03-31-2024 End: 03-31-2024 Blood Sugar Diagnostic (True Metrix Glucose Test Strip) strip Start: 03-31-2024 Pen Needle, Diab etic (Comfort Ez Pen [place]) 33 gauge x 5/32 needle Start: 03-25-2024 Blood Sugar Diagnostic (True Metrix Glucose Test Strip) strip Start: 03-31-2024 End: 03-31-2024 Blood Sugar Diagnostic (True Metrix Glucose Test Strip) strip Start: 03-31-2024 Pen Needle, Diab etic (Comfort Ez Pen [place]) 33 gauge x 5/32 needle Start: 03-25-2024 Blood Sugar Diagnostic (True Metrix Glucose Test Strip) strip Start: 03-31-2024 End: 03-31-2024 Blood Sugar Diagnostic (True Metrix Glucose Test Strip) strip Start: 03-31-2024 Pen Needle, Diab etic (Comfort Ez Pen [place]) 33 gauge x 5/32 needle Start: 03-25-2024 Blood Sugar Diagnostic (True Metrix Glucose Test Strip) strip Start: 03-31-2024 End: 03-31-2024 Blood Sugar Diagnostic (True Metrix Glucose Test Strip) strip Start: 03-31-2024 Pen Needle, Diab etic (Comfort Ez Pen [place]) 33 gauge x 5/32 needle Start: 03-25-2024 Blood Sugar Diagnostic (True Metrix Glucose Test Strip) strip Start: 03-31-2024 End: 03-31-2024 Functional Status Date Assessment Result Facility 08-04-2022 Functional Status N/A [facility] Clinical Notes 08-25-2021 to 03-07-2024 Note Date & Type Note Facility 03-07-2024 Note [facility] Subjective Joealisha Call is a 78 y.o. year old [...] prior cardiac catheterizations. She has history of CO in the past and underwent balloon angioplasty (many years ago, prior to the stent era). 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 In December 2022 she was admitted to the [facility] with decompensated diastolic heart failure, she was treated with diuretic therapy. In February 2023 she was admitted to [facility] with dehydration secondary to acute gastroenteritis. She also had acute kidney injury in that setting. She has history of breast cancer more than 25 years ago s/p mastectomy, chemo and radiation therapy. She has lymphedema in the left arm. In the past she saw a warehouse shipping associate for bleeding behind the eye . she [...] TIMES DAILY NEEDED (more content not included)... [facility] 02-15-2024 Hospital Discharge instructions Ambulatory OrdersReferral to Urology Time Frame: 02/15/24, Location: None [facility] Work Phone: 11-19-2023 Evaluation note Encounter Date Diagnosis Assessment Notes Nov, Lumbar degenerative disc disease (ICD-10 - M51.36) [facility] Other [id number] Evaluation note* Encounter Date Diagnosis Assessment Notes [...] will check vitamin B12 level next visit [facility] Other 12-11-2023 Evaluation note* Encounter Date Diagnosis Assessment Notes Treatment Notes Treatment Clinical Notes Oct, Lumbar degenerative disc disease (ICD-10 - M51.36) [facility] Other 12-07-2023 Evaluation note* Encounter Date Diagnosis Assessment Notes Treatment Notes Treatment Clinical Notes Oct, Bronchitis (ICD-10 - J40) Finish meds. No acute need for antibiotic at this time Oct, Diabetes mellitus with chronic kidney disease (ICD-10 - E11.22) Due for labs, followup w Dr. Mcconnell Oct, Lumbar degenerative disc disease (ICD-10 - M51.36) Pt will contact neurosurgery. [facility] Other 10-27-2023 Evaluation note* Encounter Date Diagnosis Assessment Notes Treatment Notes Treatment Clinical Notes Aug, Chronic kidney disease, stage 4 (severe) (ICD-10 - N18.4) [facility] Other 10-24-2023 Evaluation note* Encounter Date Diagnosis [...] (ICD-10 - M51.36) Pt requests referral to [facility]. Reviewed O[facility] report. Aug, Stress incontinence of urine (ICD-10 - N39.3) R/o infection. Discussed could be related to her diabetes med as well. [facility] Other 10-12-2023 Evaluation note* Encounter Date Diagnosis Assessment Notes Treatment Notes Treatment Clinical Notes Aug, Lumbar degenerative disc disease (ICD-10 - M51.36) [facility] Other 10-06-2023 NotePatient here for 1 mo follow up CAD, chronic diastolic heart failure, and PAF. Follow up labs have not been completed yet. Her tromper recently started her on Farxiga but she [...] light-headedness. All other systems reviewed and are negative.[facility] 08-17-2023 NoteCardiology Clinic Note Subjective Joe [...] In February 2023 she was admitted to [facility] with dehydration secondary to acute gastroenteritis. She also had acute kidney injury in that setting. She has history of breast cancer more than 25 years ago s/p mastectomy, chemo and radiation therapy. She has lymphedema in the left arm. She has been doing well. No chest pain. No dyspnea. No palpitations. She reports that she is seeing a warehouse shipping associate for bleeding behind the eye . She has had a lot of balance issues, uses a walker to ambulate and has had about 10 falls in the past year. Update: 07/23/2023 She was admitted to [facility] 07/08-07/10/2023 for decompensated HFpEF She was [...] with questions Was prescribed Farxiga by her tromper but did not start after reading about [...] DAYS, Disp: , Rfl (more content not included)...[facility] Encounter Date Diagnosis Assessment Notes Treatment Notes Treatment Clinical Notes Jul, Lumbar degenerative disc disease (ICD-10 - M51.36) [facility] Other 09-11-2023 NoteCardiology Clinic Note Subjective Joe [...] In February 2023 she was admitted to [facility] with dehydration secondary to acute gastroenteritis. She also had acute kidney injury in that setting. She has history of breast cancer more than 25 years ago s/p mastectomy, chemo and radiation therapy. She has lymphedema in the left arm. She has been doing well. No chest pain. No dyspnea. No palpitations. She reports that she is seeing a warehouse shipping associate for bleeding behind the eye . She has had a lot of balance issues, uses a walker to ambulate and has had about 10 falls in the past year. Update: 07/23/2023 She was admitted to [facility] 07/08-07/10/2023 for decompensated HFpEF She was [...] time each day., Disp: (more content not included)...[facility]09-11-2023 NotePatient here for follow up TBH [...] weakness. All other systems reviewed and are negative.[facility] 07-17-2023 Evaluation note* Encounter Date Diagnosis [...] refill. Oarrs reviewed. No med changes needed. [facility] Other 07-05-2023 Evaluation note* Encounter Date Diagnosis Assessment Notes Treatment Notes Treatment Clinical Notes May, C. difficile colitis (ICD-10 - A04.72) [facility] Other 06-19-2023 Evaluation note* Encounter Date Diagnosis Assessment Notes Treatment Notes Treatment Clinical Notes Apr, Skin candidiasis (ICD-10 - B37.2) Discussed this is related to her hyperglycemia. Will treat w nystatin, but needs improvement in diet and glucose readings. Apr, Type 2 diabetes mellitus with hyperglycemia, unspecified whether detention insulin use (ICD-10 - E11.65) Pt agrees to see Dr Mcconnell again. Recently sent to ER for glucose of 608. Apr, Tremor of both hands (ICD-10 - R25.1) Referral to Dr. Lopez Apr, Memory changes (ICD- 10 - R41.3) Referral to Dr. Lopez Apr, Gastroesophageal reflux disease without esophagitis (ICD-10 - K21.9) Improved on carafate w PPI. [facility] Other 06-14-2023 [facility] Subjective Joemehreen Call is a 77 y.o. year old [...] use: Not Currently Drug use: Never SHANNA Parikh is seen in follow up and to discuss the watchman procedure. She is a 77 yo woman. She has history of AF on xarelto. She has hypertension on treatment. She has mild carotid stenosis by Duplex in 2015. She has diabetes on insulin and morbid obesity. She underwent cardiac cath after abnormal stress test in 2017 and that did not show significant disease. She says she had prior cardiac catheterizations. She has history of CO in the past and underwent balloon angioplasty (many years ago, prior to the stent era). 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 In December 2022 she was admitted to the [facility] with decompensated diastolic heart failure, she was treated with diuretic therapy. In February 2023 she was admitted to [facility] with dehydration secondary to acute gastroenteritis. She also had acute kidney injury in that setting. She has history of breast cancer more than 25 years ago s/p mastectomy, chemo and radiation therapy. She has lymphedema in the left arm. She has been doing well. No chest pain. No dyspnea. No palpitations. She reports that she is seeing a warehouse shipping associate for bleeding behind the eye . She [...] 40 mg by mouth (more content not included)...[facility]06-01-2023 Evaluation note* Encounter Date Diagnosis Assessment Notes Treatment Notes Treatment Clinical Notes Apr, Gastroesophageal ref lux disease without esophagitis (ICD-10 - K21.9) [facility] Other 04-28-2023 Evaluation note* Encounter Date Diagnosis [...] get lab ordered on 02/20 today Feb, FDC (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 insulin (ICD-10 - Z79.4) [facility] Other 04-26-2023 Evaluation note* Encounter Date Diagnosis Assessment Notes Treatment Notes Treatment Clinical Notes Feb, C. difficile colitis (ICD-10 - A04.72) [facility] Other 04-17-2023 Evaluation note* Encounter Date Diagnosis Assessment Notes Treatment Notes Treatment Clinical Notes Feb, Gastroesophageal ref lux disease without esophagitis (ICD-10 - K21.9) [facility] Other 04-14-2023 Evaluation note* Encounter Date Diagnosis Assessment Notes Treatment Notes Treatment Clinical Notes Feb, Chronic diarrhea (ICD-10 - K52.9) [facility] Other 04-11-2023 Evaluation note* Encounter Date Diagnosis [...] it really overall has not been helpful. [facility] Other 01-13-2023 Evaluation note* Encounter Date Diagnosis Assessment Notes Treatment Notes Treatment Clinical Notes Nov, Type 2 diabetes mellitus with hyperglycemia, unspecified whether terminal clerk insulin use (ICD-10 - E11.65) [facility] Other 10-14-2021 Evaluation note* Encounter Date Diagnosis [...] obesity (BMI >= 40) (ICD-10 - E66.01) 14 Aug, 2021 Other 1. After discussion with the patient [...] training 6. Follow up in 3 months. [facility] Other Evaluation + Plan note No data available for this section General Surgery [place] [facility]No [facility] [employer] Other [facility]Now[facility] [employer] Other [facility]Now[facility] hospital [employer] Other Evaluation note* Diagnosis Onset Date Resolution Status Chalazion of right eye acute Immunization due acute Urinary incontinence acute [facility] Work Phone: Evaluation note* Diagnosis Onset Date Resolution Status Chalazion of right eye acute Immunization due acute Urinary incontinence acute Diabetes mellitus with hyperglycemia acute Hypertension acute Hypothyroidism acute Lumbar spondylosis acute Secondary hyperparathyroidism acute [facility] Work Phone: Evaluation note* Diagnosis Onset [...] acute Thrush of mouth and esophagus acute [facility] Work Phone: Evaluation note* Diagnosis Onset [...] IV acute UTI (urinary tract infection) acute [facility] Work Phone: Evaluation note* Diagnosis Onset [...] IV acute UTI (urinary tract infection) acute Lumbar degenerative disc disease acute Thrush of mouth and esophagus acute [id number] acute Secondary hyperparathyroidism acute [facility] Work Phone: History general Narrative - Reported* [...] 2002 Surgical History Removal of sigmoid colon 2006 Surgical History Heart cath Surgical History back surgery 2014 Surgical History CARDIAC CATH X2 Surgical History SHOULDER PROCEDURE 2016 Surgical History COLONOSCOPY 08/2017 Surgical History COLONOSCOPY 04/10/2019 Hospitalization History See above [facility] Other Hismdni general Narrative - Reported* Type Description Date [...] History COLONOSCOPY 04/10/2019 Hospitalization History See above [facility] Other History general Narrative - ReportedNoLoveSurf Other History general Narrative - ReportedNoLoveSurf Other History general Narrative - Reported* Type [...] GERD 2022 Hospitalization History DIABETES ISSUES 2022 [facility] Other Hospital Discharge instructions No data available for this section General Surgery [place] Progress note No data available for this section General Surgery [place] Summary Purpose Family History Relationship Condition Age [...] se, stage 4 (severe) (N18.4) Referral Organization [facility] [address] Referring Provider First Name Shantel Referring Provider Last Name Tenisha Referring Provider Specialty [facility] [employer] Referred Organization [facility] Nephrology Referred Provider Cherie Rapp Referred Address [address] [place], [place],[address] Referred Provider Specialty Nephrology Referral Priority Routine General Notes Mariela Kingston 11:35:41 AM >received today, sent P2P Reason *FU 09/13 lumbar p ain Diagnosis 1 Lumbar degenerative disc disease (M51.36) Referral Organization [facility] [employer] Referring Provider First Name Shantel Referring Provider Last Name Tensiha Referring Provider Specialty [facility] [employer] Referred Organization [facility] Referred Provider Terell Soliz Referred Address [address], [place],[address] Referred Provider Specialty Pain Medic[facility] e Referral Priority Routine General Notes Mariela Kingston 03:09:25 PM >received today, waiting for notes to be locked Mariela Kingston 09/06/2023 10:08:29 AM >notes locked, referral faxed Clinical Notes F: [id number] Reason Poorly controlled di abetes Diagnosis 1 Type 2 diabetes maranda itus with hyperglycemia, unspecified whether detention insulin use (E11.65) Referral Organization [facility] [employer] Referring Provider First Name Shantel Referring Provider Last Name Tenisha Referring Provider Specialty [facility] [employer] Referred Organization Unknown Facility Referred Provider Joshua Mcconnell Referred Provider Specialty Internal Med [facility]ig[facility] Referral Priority Routine Reason tremor and memory lo ss - family history of dementia Diagnosis 1 Tremor of both hands (R25.1) Referral Organization [facility] [address] Referring Provider First Name Shantel Referring Provider Last Name Tenisha Referring Provider Specialty [facility] [employer] Referred Organization Unknown Facility Referred Provider Emery [...] TBH follow up, Hypercolemia throat problem SOB RENAL CKD 4 Reason for Visit Diabetes mellitus wi th [...] disease), stage IV UTI (urinary tract infection) Lumbar degenerative disc disease Thrush of mouth and esophagus [id number] Secondary hyperparathyroidism Additional Source Comments INFORMATION SOURCE (unrecogn ized section and content) DATE CREATED AUTHOR 05/10/2018 [facility] DATE CREATED AUTHOR AUTHOR'S ORGANIZ ATION 03/10/2023 [facility] DATE CREATED AUTHOR AUTHOR'S ORGANIZ ATION 02/20/2024 [facility] DATE CREATED AUTHOR AUTHOR'S ORGANIZ ATION 03/10/2024 [facility] DATE CREATED AUTHOR AUTHOR'S ORGANIZ ATION 05/28/2024 [facility] [employer] [employer] REASON FOR VISIT (unrecogniz [...] End: January 18, 2024 Franchesca Sullivan APRN [employer] Attending Provider Act chiqui Start: January 18, [...] May 22, 2024 End: May 22, 2024 Team Status: Active Member Role Status Dates Shantel Steven MD Primary Care Provider Active Start: May 26, 2024 Michela Medrano DO Attending Provider Active Start: May 26, 2024 Team Status: Active Member Role Status Dates Shantel Steven MD Primary Care Provider Active Start: June 01, 2024 Nikky Silverman MD Attending Provider Active Sta rt: June 01, 2024 Team Status: Inactive Member Role Status Dates Shantel Steven MD Primary Care Provider Active Start: June 05, 2024 End: June 05, 2024 Cherie Rapp MD Attending Provider Active Start : June 05, 2024 End: June 05, 2024 Goals (unrecognized section and content) Goals [...] BE BASED ON THE PRIMARY CLINICAL RECORDS. [employer] provides no warranty or guarantee of the accuracy or completeness of information in this document.
--- NOTE | 2024-06-09 05:20 | ED.GENADUL1 ---
Documented by User: Paco Bryant MD 06/09/24 06:52 HPI HPI - General Adult General Chief complaint: Abdominal Pain Stated complaint: SOB Time Seen by Provider: 06/09/24 05:02 Source: patient Mode of arrival: Wheelchair History of Present Illness HPI narrative: past history of CHF, IDDM and PAF. Presents complaining she is having a hard time breathing. She feels it is because her abdomen is distended. Denies fever or chest pain. No nausea or vomiting. States if she lays on her left side her breathing is better Related Data Home Medications ?Medication ?Instructions ?Recorded ?Confirmed insulin glargine 100 unit/mL (3 35 unit subcut BEDTIME 04/25/23 05/04/24 mL) subcutaneous pen (Lantus Solostar U-100 Insulin) metoprolol tartrate 100 mg tablet 150 mg PO BID 04/25/23 05/04/24 rivaroxaban 20 mg tablet (Xarelto) 20 mg PO QPM 04/25/23 05/04/24 insulin aspar prot-insulin aspart 35 unit subcut DAILY 07/08/23 05/04/24 100 unit/mL (70-30) subcutaneous pen (Novolog Mix 70-30FlexPen U-100) alprazolam 0.25 mg tablet 0.25 mg PO TID PRN anxiety 04/30/24 05/04/24 levothyroxine 125 mcg tablet 125 mcg PO .acb 04/30/24 05/04/24 oxycodone-acetaminophen 5 mg-325 1 tab PO BID PRN pain 04/30/24 05/04/24 mg tablet Previous Rx's ?Medication ?Instructions ?Recorded cefdinir 300 mg capsule 600 mg (2 x 300 mg) PO DAILY #14 05/06/24 caps Allergies Allergy/AdvReac Type Severity Reaction Status Date / Time Iodinated Contrast Media Allergy Intermediate Hives Verified 06/09/24 05:03 shellfish derived Allergy Intermediate Hives Verified 06/09/24 05:03 Sulfa (Sulfonamide Allergy Rash Verified 06/09/24 05:03 Antibiotics) Opioid HPI Opioid Management Most Recent Opioid Data: Last Pain Scale 3 06/01/24 08:13 Last ORT Total Score 0 05/04/24 13:35 Last ORT Risk Category Low Risk 05/04/24 13:35 Review of Systems ROS Status of ROS 10 or more systems reviewed and unremarkable except as noted in history and below [facility] Medical History (Updated 06/09/24 @ 07:57 by Lamine Rivera MD) Acute renal failure ?N17.9 - Acute kidney failure, unspecified (ICD-10) Hyperkalemia ?E87.5 - Hyperkalemia (ICD-10) Acute dehydration ?E86.0 - Dehydration (ICD-10) CKD stage 3a, GFR 45-59 ml/min ?N18.31 - Chronic kidney disease, stage 3a (ICD-10) Diabetes mellitus with hyperglycemia, with long-term current use of insulin ?E11.65 - Type 2 diabetes mellitus with hyperglycemia (ICD-10) ?Z79.4 - intermediate frame tender (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9 - Obesity, unspecified (ICD-10) Surgical History (Updated 03/26/24 @ 06:36 by Brooke Conrad) H/O bilateral mastectomy ?Z90.13 - Acquired absence of bilateral breasts and nipples (ICD-10) Family History (Updated 07/08/23 @ 04:02 by Mira Addison) Other Family history of CHF (congestive heart failure) Family history of cancer Family history of diabetes mellitus Family history of hypertension H/O mastectomy Social History (Updated 03/26/24 @ 06:38 by Brooke Conrad) Within the past year, how often did you have a drink containing alcohol: never Within the past year, how often did you have six or more drinks on one occasion: never Score interpretation: A score less than 3 is consistent with normal alcohol consumption. 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 Highest level of school completed/degree received: some college, no degree Do you want help with school or training: No Are you now , , , , never or living with a partner: In a typical week, how many times do you talk on the telephone with family, friends, or neighbors: 3 or more times per week How often do you get together with friends or relatives: 3 or more times per week How often do you attend hindu or adventist services: never Do you belong to any clubs or organizations such as hindu groups unions, [employer] or athletic groups, or school groups: no Total score: 2 Score interpretation: A score of greater than or equal to 2 indicates the lowest level of social isolation. Little interest or pleasure in doing things: not at all Feeling down, depressed, or hopeless: not at all Feel stressed/tense/nervous/anxious/difficulty sleeping: not at all Due to disability, difficulty making decisions: No Do you think of yourself as: straight/heterosexual Gender Identity: female Exam Constitutional Vital Signs, click to edit/add: Last Vital Signs Temp 97.7 F 06/09/24 04:52 Pulse 68 06/09/24 04:52 Resp 06/09/24 04:52 BP 165/67 H 06/09/24 05:52 Pulse Ox 95 06/09/24 04:52 O2 Del Method Room Air 06/09/24 04:52 Common normals: no apparent distress, oriented x3, alert and well nourished [facility] Common normals: normocephalic and head/scalp atraumatic Eye Common normals: PERRL, EOMs intact bilaterally and conjunctivae normal Respiratory Common normals: normal respiratory effort, no retractions, no use of accessory muscles and clear to auscultation bilaterally Cardio Rhythm: abnormal rhythm GI Other: abdomen is distended . nontender Extremity Other: lymphedema Neuro Common normals: oriented x3, CN's II-XII intact bilaterally, moves all extremities and no focal motor deficits Psych Appearance: grossly normal Course Vital Signs Vital signs: Vital Signs Temperature 97.7 F 06/09/24 04:52 Pulse Rate 68 06/09/24 04:52 Respiratory Rate 18 06/09/24 04:52 Blood Pressure 192/110 H 06/09/24 04:52 Pulse Oximetry 95 06/09/24 04:52 Oxygen Delivery Method Room Air 06/09/24 04:52 Temperature 97.7 F 06/09/24 04:52 Pulse Rate 68 06/09/24 04:52 Respiratory Rate 18 06/09/24 04:52 Blood Pressure 165/67 H 06/09/24 05:52 Pulse Oximetry 95 06/09/24 04:52 Oxygen Delivery Method Room Air 06/09/24 04:52 Medical Decision Making MDM Narrative Medical decision making narrative: patient is morbidly obese and has lymphedema of her extremities. Complains of increasing abdominal girth now interfering with her breathing. No abdominal pain or chest pain. Abdomen is distended but not firm. Labs ordered along with CT abdomen. CT abdomen without acute findings. Cxray with findings CHF vs infiltrate. Patient re interviewed and denies cough. Admits that when she opens her mouth and breathes out she can hear a rattle. additional labs ordered including COVID 19 and D-dimer. Her BNP is elevated Lab Data Labs: Lab Results 06/09/24 06/09/24 Range/Units 05:20 07:03 WBC 8.9 (4.0-11.0) 10^3/uL RBC 4.12 L (4.20-5.40) 10^6/uL Hgb 12.5 (12.0-16.0) g/dL Hct 37.7 (36.0-48.0) % MCV 91.5 (81.0-99.0) fL MCH 30.3 (26.7-34.0) pg MCHC 33.2 (29.9-35.2) g/dL RDW 14.8 (11.0-15.0) % Plt Count 205 (150-450) 10^3/uL MPV 12.4 (9.5-13.5) fL Neut % (Auto) 74.2 (43.0-75.0) % Lymph % (Auto) 15.1 L (20.5-60.0) % Dixon % (Auto) 7.9 (1.7-12.0) % Eos % (Auto) 1.5 (0.9-7.0) % Baso % (Auto) 1.0 (0.2-2.0) % Neut # (Auto) 6.6 H (1.4-6.5) 10^3/uL Lymph # (Auto) 1.3 (1.2-3.8) 10^3/uL Dixon # (Auto) 0.7 (0.3-0.8) 10^3/uL Eos # (Auto) 0.1 (0.0-0.7) 10^3/uL Baso # (Auto) 0.1 (0.0-0.1) 10^3/uL Abs Immat Gran (auto) 0.03 (0.00-0.03) 10^3/uL Imm/Tot Granulo (auto) 0.3 (0.0-0.5) % D-Dimer 0.39 (<=0.59) mg/L FEU Sodium 135 L (136-145) mmol/L Potassium 5.0 (3.5-5.1) mmol/L Chloride 103 (98-107) mmol/L Carbon Dioxide 27.1 (21.0-32.0) mmol/L Anion Gap 9.9 BUN 28.0 H (7.0-18.0) mg/dL Creatinine 0.88 (0.55-1.02) mg/dL Est GFR ( Amer) >60 (>=60) Est GFR (Non-Af Amer) >60 (>=60) BUN/Creatinine Ratio 31.8 Glucose 142 H (74-106) mg/dL Calcium 8.6 (8.5-10.1) mg/dL Total Bilirubin 0.8 (0.2-1.0) mg/dL AST 34 (15-37) U/L ALT 18 (14-59) U/L Alkaline Phosphatase 86 (46-116) U/L Troponin I High Sens 17.0 (4.0-51.3) pg/mL NT-Pro-B Natriuret Pep 3488.0 H* (<=1800.0) pg/mL Total Protein 7.3 (6.4-8.2) g/dL Albumin 2.5 L (3.4-5.0) g/dL Globulin 4.8 g/dL Albumin/Globulin Ratio 0.5 Lipase 45.0 (16.0-77.0) U/L SARS-CoV-2 Ag (CV2AG) Negative (NEGATIVE) Imaging Data Chest x-ray: Radiologist's impression: ITS Impressions Abdomen/Pelvis CT 06/09/24 05:25 IMPRESSION: 1. Small layering bilateral pleural effusions with basilar increased interstitial markings suspicious for edema or less likely pneumonitis. Streaky left basilar consolidation could reflect atelectasis or infiltrate. 2. Cholecystectomy, unchanged. 3. Stable benign right adrenal adenoma. 4. Colonic diverticulosis. 5. Nonspecific 3.7 cm simple appearing right adnexal cystic lesion, abnormal in a postmenopausal female, but unchanged from the prior exam. Electronically authenticated by: MAGGY OCASIO Date: 06/09/2024 06:29 Chest X-Ray 06/09/24 05:25 IMPRESSION: Interval development of mild cardiomegaly, diffuse increased interstitial markings, left lower lobe infiltrate and small pleural effusion. Findings may reflect pulmonary edema from congestive heart failure and/or pneumonitis. Electronically authenticated by: MAGGY OCASIO Date: 06/09/2024 06:21 Discharge Plan Discharge Chief Complaint: Abdominal Pain Clinical Impression: Acute on chronic clinical systolic heart failure Patient Disposition: Admitted as Observation Time of Disposition Decision: 07:57 Prescriptions / Home Meds: No Action insulin glargine [Lantus Solostar U-100 Insulin] 100 unit/mL (3 mL) insulin pen 35 unit SUBCUT BEDTIME metoprolol tartrate 100 mg tablet 150 mg PO BID Xarelto 20 mg tablet 20 mg PO QPM Rx Instructions: must administer with evening meal insulin asp prt-insulin aspart [Novolog Mix 70-30FlexPen U-100] 100 unit/mL (70-30) insulin pen 35 unit subcut DAILY Rx Instructions: USE DIRECTED PER SLIDING SCALE- MAX 35 UNITS DAILY levothyroxine 125 mcg tablet 125 mcg PO .acb alprazolam 0.25 mg tablet 0.25 mg PO TID PRN (Reason: anxiety) Patient Comments: 0.25mg PO TID PRN for anxiety oxycodone-acetaminophen 5-325 mg tablet 1 tab PO BID PRN (Reason: pain) cefdinir 300 mg capsule 600 mg PO DAILY Qty: 14 0RF Print Language: Mozambican Referrals: Theodora Cuevas MD [Primary Care Provider] - 1 week Documented by User: Lamine Rivera MD 06/09/24 07:57 HPI HPI - General Adult General Chief complaint: Abdominal Pain Stated complaint: SOB Time Seen by Provider: 06/09/24 05:02 Related Data Home Medications ?Medication ?Instructions ?Recorded ?Confirmed insulin glargine 100 unit/mL (3 35 unit subcut BEDTIME 04/25/23 05/04/24 mL) subcutaneous pen (Lantus Solostar U-100 Insulin) metoprolol tartrate 100 mg tablet 150 mg PO BID 04/25/23 05/04/24 rivaroxaban 20 mg tablet (Xarelto) 20 mg PO QPM 04/25/23 05/04/24 insulin aspar prot-insulin aspart 35 unit subcut DAILY 07/08/23 05/04/24 100 unit/mL (70-30) subcutaneous pen (Novolog Mix 70-30FlexPen U-100) alprazolam 0.25 mg tablet 0.25 mg PO TID PRN anxiety 04/30/24 05/04/24 levothyroxine 125 mcg tablet 125 mcg PO .acb 04/30/24 05/04/24 oxycodone-acetaminophen 5 mg-325 1 tab PO BID PRN pain 04/30/24 05/04/24 mg tablet Previous Rx's ?Medication ?Instructions ?Recorded cefdinir 300 mg capsule 600 mg (2 x 300 mg) PO DAILY #14 05/06/24 caps Allergies Allergy/AdvReac Type Severity Reaction Status Date / Time Iodinated Contrast Media Allergy Intermediate Hives Verified 06/09/24 05:03 shellfish derived Allergy Intermediate Hives Verified 06/09/24 05:03 Sulfa (Sulfonamide Allergy Rash Verified 06/09/24 05:03 Antibiotics) Opioid HPI Opioid Management Most Recent Opioid Data: Last Pain Scale 3 06/01/24 08:13 Last ORT Total Score 0 05/04/24 13:35 Last ORT Risk Category Low Risk 05/04/24 13:35 PFSH PFSH Medical History (Updated 06/09/24 @ 07:57 by Lamine Rivrea MD) Acute renal failure ?N17.9 - Acute kidney failure, unspecified (ICD-10) Hyperkalemia ?E87.5 - Hyperkalemia (ICD-10) Acute dehydration ?E86.0 - Dehydration (ICD-10) CKD stage 3a, GFR 45-59 ml/min ?N18.31 - Chronic kidney disease, stage 3a (ICD-10) Diabetes mellitus with hyperglycemia, with long-term current use of insulin ?E11.65 - Type 2 diabetes mellitus with hyperglycemia (ICD-10) ?Z79.4 - intermediate frame tender (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9 - Obesity, unspecified (ICD-10) Surgical History (Updated 03/26/24 @ 06:36 by Brooke Conrad) H/O bilateral mastectomy ?Z90.13 - Acquired absence of bilateral breasts and nipples (ICD-10) Family History (Updated 07/08/23 @ 04:02 by Mira Addison) Other Family history of CHF (congestive heart failure) Family history of cancer Family history of diabetes mellitus Family history of hypertension H/O mastectomy Social History (Updated 03/26/24 @ 06:38 by Brooke Conrad) Within the past year, how often did you have a drink containing alcohol: never Within the past year, how often did you have six or more drinks on one occasion: never Score interpretation: A score less than 3 is consistent with normal alcohol consumption. 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 Highest level of school completed/degree received: some college, no degree Do you want help with school or training: No Are you now , , , , never or living with a partner: In a typical week, how many times do you talk on the telephone with family, friends, or neighbors: 3 or more times per week How often do you get together with friends or relatives: 3 or more times per week How often do you attend hindu or adventist services: never Do you belong to any clubs or organizations such as hindu groups unions, [employer] or athletic groups, or school groups: no Total score: 2 Score interpretation: A score of greater than or equal to 2 indicates the lowest level of social isolation. Little interest or pleasure in doing things: not at all Feeling down, depressed, or hopeless: not at all Feel stressed/tense/nervous/anxious/difficulty sleeping: not at all Due to disability, difficulty making decisions: No Do you think of yourself as: straight/heterosexual Gender Identity: female Exam Constitutional Vital Signs, click to edit/add: Last Vital Signs Temp 97.7 F 06/09/24 04:52 Pulse 06/09/24 04:52 Resp 06/09/24 04:52 BP 165/67 H 06/09/24 05:52 Pulse Ox 95 06/09/24 04:52 O2 Del Method Room Air 06/09/24 04:52 Course Vital Signs Vital signs: Vital Signs Temperature 97.7 F 06/09/24 04:52 Pulse Rate 68 06/09/24 04:52 Respiratory Rate 18 06/09/24 04:52 Blood Pressure 192/110 H 06/09/24 04:52 Pulse Oximetry 06/09/24 04:52 Oxygen Delivery Method Room Air 06/09/24 04:52 Temperature 97.7 F 06/09/24 04:52 Pulse Rate 68 06/09/24 04:52 Respiratory Rate 18 06/09/24 04:52 Blood Pressure 165/67 H 06/09/24 05:52 Pulse Oximetry 06/09/24 04:52 Oxygen Delivery Method Room Air 06/09/24 04:52 Medical Decision Making MDM Narrative Medical decision making narrative: patient is morbidly obese and has lymphedema of her extremities. Complains of increasing abdominal girth now interfering with her breathing. No abdominal pain or chest pain. Abdomen is distended but not firm. Labs ordered along with CT abdomen. CT abdomen without acute findings. Cxray with findings CHF vs infiltrate. Patient re interviewed and denies cough. Admits that when she opens her mouth and breathes out she can hear a rattle. additional labs ordered including COVID 19 and D-dimer. Her BNP is elevated This patient was turned over to myself at 07 100 a.m. She presents with abdominal distention but no severe pain. The workup shoulder CAT scan does show no acute findings however other ancillary studies show that her BNP is trending up. Her chest x-ray now has a new infiltrate/effusion in both bases but the infiltrates more noticeable on the left. They read this out as some increasing cardiomegaly. Her CBC is stable. Since she frequently has been admitted here and has clinical worsening over laboratory testing we will go ahead and admit her. Case was discussed with the hospitalist. Lab Data Labs: Lab Results 06/09/24 06/09/24 Range/Units 05:20 07:03 WBC 8.9 (4.0-11.0) 10^3/uL RBC 4.12 L (4.20-5.40) 10^6/uL Hgb 12.5 (12.0-16.0) g/dL Hct 37.7 (36.0-48.0) % MCV 91.5 (81.0-99.0) fL MCH 30.3 (26.7-34.0) pg MCHC 33.2 (29.9-35.2) g/dL RDW 14.8 (11.0-15.0) % Plt Count 205 (150-450) 10^3/uL MPV 12.4 (9.5-13.5) fL Neut % (Auto) 74.2 (43.0-75.0) % Lymph % (Auto) 15.1 L (20.5-60.0) % Dixon % (Auto) 7.9 (1.7-12.0) % Eos % (Auto) 1.5 (0.9-7.0) % Baso % (Auto) 1.0 (0.2-2.0) % Neut # (Auto) 6.6 H (1.4-6.5) 10^3/uL Lymph # (Auto) 1.3 (1.2-3.8) 10^3/uL Dixon # (Auto) 0.7 (0.3-0.8) 10^3/uL Eos # (Auto) 0.1 (0.0-0.7) 10^3/uL Baso # (Auto) 0.1 (0.0-0.1) 10^3/uL Abs Immat Gran (auto) 0.03 (0.00-0.03) 10^3/uL Imm/Tot Granulo (auto) 0.3 (0.0-0.5) % D-Dimer 0.39 (<=0.59) mg/L FEU Sodium 135 L (136-145) mmol/L Potassium 5.0 (3.5-5.1) mmol/L Chloride 103 (98-107) mmol/L Carbon Dioxide 27.1 (21.0-32.0) mmol/L Anion Gap 9.9 BUN 28.0 H (7.0-18.0) mg/dL Creatinine 0.88 (0.55-1.02) mg/dL Est GFR ( Amer) >60 (>=60) Est GFR (Non-Af Amer) >60 (>=60) BUN/Creatinine Ratio 31.8 Glucose 142 H (74-106) mg/dL Calcium 8.6 (8.5-10.1) mg/dL Total Bilirubin 0.8 (0.2-1.0) mg/dL AST 34 (15-37) U/L ALT 18 (14-59) U/L Alkaline Phosphatase 86 (46-116) U/L Troponin I High Sens 17.0 (4.0-51.3) pg/mL NT-Pro-B Natriuret Pep 3488.0 H* (<=1800.0) pg/mL Total Protein 7.3 (6.4-8.2) g/dL Albumin 2.5 L (3.4-5.0) g/dL Globulin 4.8 g/dL Albumin/Globulin Ratio 0.5 Lipase 45.0 (16.0-77.0) U/L SARS-CoV-2 Ag (CV2AG) Negative (NEGATIVE) Imaging Data Chest x-ray: Radiologist's impression: ITS Impressions Abdomen/Pelvis CT 06/09/24 05:25 IMPRESSION: 1. Small layering bilateral pleural effusions with basilar increased interstitial markings suspicious for edema or less likely pneumonitis. Streaky left basilar consolidation could reflect atelectasis or infiltrate. 2. Cholecystectomy, unchanged. 3. Stable benign right adrenal adenoma. 4. Colonic diverticulosis. 5. Nonspecific 3.7 cm simple appearing right adnexal cystic lesion, abnormal in a postmenopausal female, but unchanged from the prior exam. Electronically authenticated by: MAGGY OCASIO Date: 06/09/2024 06:29 Chest X-Ray 06/09/24 05:25
--- NOTE | 2024-06-09 05:25 | XR_ITS ---
The [address] [address] Patient Name: JOE CALL MRN: [id number] date: 1945 Sex: F Assigned Patient Location: ED.MAIN Current Patient Location: ER Accession/Order Number: [id number] Exam Date: 06/09/2024 05:40 Report Date: 06/09/2024 06:21 At the request of: ANALISA WHYTE Procedure: XR chest 2V EXAM: XR chest 2V HISTORY: short of breath . Dyspnea and intermittent abdominal pain for 6 months. COMPARISON: Chest x-ray, 05/04/2024. TECHNIQUE: Frontal and lateral chest x-rays. FINDINGS: Mild cardiomegaly is new. There are new diffuse increased interstitial markings with patchy infiltrate in the left lower lobe. New small left pleural effusion is noted. XR/XR chest 2V IMPRESSION: Interval development of mild cardiomegaly, diffuse increased interstitial markings, left lower lobe infiltrate and small pleural effusion. Findings may reflect pulmonary edema from congestive heart failure and/or pneumonitis. Electronically authenticated by: MAGGY OCASIO Date: 06/09/2024 06:21
--- NOTE | 2024-06-09 05:25 | CT_ITS ---
The [address] [address] Patient Name: JOE CALL MRN: [id number] date: 1945 Sex: F Assigned Patient Location: ED.MAIN Current Patient Location: Accession/Order Number: [id number] Exam Date: 06/09/2024 05:40 Report Date: 06/09/2024 06:29 At the request of: ANALISA WHYTE Procedure: CT abdomen pelvis wo con EXAM: CT abdomen pelvis wo con HISTORY: abdominal distension COMPARISON: CT abdomen pelvis, 06/01/2024. TECHNIQUE: Nonenhanced CT imaging of the abdomen and pelvis was performed with sagittal and coronal reconstructions. Dose reduction techniques were achieved by using automated exposure control and/or adjustment of mA and/or kV according to patient size and/or use of iterative reconstruction technique. FINDINGS: CT ABDOMEN: There are new small layering bilateral pleural effusions. Nonspecific mild bibasilar increased interstitial markings favor mild pulmonary edema with streaky left basilar atelectasis or infiltrate. The heart is mildly enlarged. There is no pericardial effusion. There are dense calcifications of the mitral valve annulus. Cholecystectomy clips are present. There is no biliary ductal dilatation. The exam is limited by the lack of IV contrast. Solid organ lesions or acute abnormalities could be missed. Allowing for this, the liver, pancreas, spleen, left adrenal gland and left kidney are grossly unremarkable. Previously noted benign 1.3 cm right adrenal adenoma is unchanged. There is a 1.6 cm cortical cyst in the posterior right kidney on image 60. The right kidney is otherwise unremarkable. The stomach and small bowel appear unremarkable. There are dense aortic calcifications without aneurysm. The IVC appears normal. There is a retroaortic left renal vein, normal variant. Fat-containing supraumbilical ventral hernias are noted on image 61. CT PELVIS: The appendix, pelvic small bowel loops and urinary bladder are unremarkable. Prior hysterectomy is noted. There is a simple appearing 3.7 x 3 cm right ovarian cystic lesion measuring 15 Hounsfield units, nonspecific. There is a surgical anastomosis in the sigmoid colon. Colonic diverticulosis is most prominent in the sigmoid region. No free fluid, loculated fluid, free air or soft tissue gas is seen in the abdomen or pelvis. Postoperative changes in the lumbar spine for discectomy, disc spacer placement and posterior interbody fusion at L4-L5 are unchanged. Advanced degenerative disc disease is again seen at L2-L4. No acute osseous abnormality or suspicious bony lesion is seen. CT/CT abdomen pelvis wo con IMPRESSION: 1. Small layering bilateral pleural effusions with basilar increased interstitial markings suspicious for edema or less likely pneumonitis. Streaky left basilar consolidation could reflect atelectasis or infiltrate. 2. Cholecystectomy, unchanged. 3. Stable benign right adrenal adenoma. 4. Colonic diverticulosis. 5. Nonspecific 3.7 cm simple appearing right adnexal cystic lesion, abnormal in a postmenopausal female, but unchanged from the prior exam. Electronically authenticated by: MAGGY OCASIO Date: 06/09/2024 06:29
[2024-06-09 05:30] LABS: Basophils Absolute Auto 0.1 10^3/uL (0.0-0.1); Eosinophils Absolute Auto 0.1 10^3/uL (0.0-0.7); Eosinophils Percent Auto 1.5 % (0.9-7.0); Hematocrit 37.7 % (36.0-48.0); Hemoglobin 12.5 g/dL (12.0-16.0); Immature Granulocytes Abs Auto 0.03 10^3/uL (0.00-0.03); Immature Granulocytes Pct Auto 0.3 % (0.0-0.5); Lymphocytes Absolute Auto 1.3 10^3/uL (1.2-3.8); Lymphocytes Percent Auto 15.1 % (20.5-60.0); Mean Corpuscular HGB Conc 33.2 g/dL (29.9-35.2); Mean Corpuscular Hemoglobin 30.3 pg (26.7-34.0); Mean Corpuscular Volume 91.5 fL (81.0-99.0); Mean Platelet Volume 12.4 fL (9.5-13.5); Monocytes Absolute Auto 0.7 10^3/uL (0.3-0.8); Monocytes Percent Auto 7.9 % (1.7-12.0); Neutrophils Absolute Auto 6.6 10^3/uL (1.4-6.5); Neutrophils Percent Auto 74.2 % (43.0-75.0); Platelet Count 205 10^3/uL (150-450); Red Blood Count 4.12 10^6/uL (4.20-5.40); Red Cell Distribution Width 14.8 % (11.0-15.0); White Blood Count 8.9 10^3/uL (4.0-11.0)
[2024-06-09 05:43] LABS: Anion Gap 9.9
[2024-06-09 05:48] LABS: Alanine Aminotransferase 18 U/L (14-59); Albumin Globulin Ratio 0.5; Albumin Level 2.5 g/dL (3.4-5.0); Alkaline Phosphatase 86 U/L (46-116); Aspartate Amino Transferase 34 U/L (15-37); BUN Creatinine Ratio 31.8; Bilirubin Total 0.8 mg/dL (0.2-1.0); Calcium 8.6 mg/dL (8.5-10.1); Carbon Dioxide 27.1 mmol/L (21.0-32.0); Chloride 103 mmol/L (98-107); Estimated GFR (African America >60 (>=60); Estimated GFR (Non-African Ame >60 (>=60); Globulin 4.8 g/dL; Glucose 142 mg/dL (74-106); Sodium 135 mmol/L (136-145); Total Protein 7.3 g/dL (6.4-8.2)
[2024-06-09 07:16] LABS: D Dimer 0.39 mg/L FEU (<=0.59)
[2024-06-09 07:31] LABS: Internal Control Within Normal Limits; SARS-CoV-2 Ag NEGATIVE (NEGATIVE)
[2024-06-09] MEDS: FUROSEMIDE 40 MG/4 ML VIAL IVP ×2 (10:07→21:02)
--- NOTE | 2024-06-09 10:26 | CM.NOTE ---
Rounds made with Dr. Parisi. Arrived to the Med/Surg floor from ER with shortness of breath. Dr. Parisi to give Lasix IV and determine plan of care.
--- NOTE | 2024-06-09 11:16 | SWNOTE1 ---
SW met with pt to discuss dc needs. OT was in room as well. Pt lives at home with her and uses a rollator. Pt has 2 floors, but everything is on first floor that is needed. Pt was set up with [facility] at discharge last visit. She stated they came in one time and it was decided that she did not need it. She does not have Home Health at this time. Pt does not anticipate any discharge needs at this time. SW to follow as needed. SW to review therapy assessments.
--- NOTE | 2024-06-09 11:25 | SWNOTE1 ---
Medicare Outpatient Observation Notice reviewed and discussed with patient. Pt. verbalized understanding and signed the form. Original given to patient and copy placed in patient?s chart.
--- NOTE | 2024-06-09 11:39 | P.HP_ITS ---
HPI H&P: HPI History of Present Illness Chief complaint: SOB/ACUTE ON CHRONIC SYSTOLIC HEART FAILURE Narrative: 78 y o female presented with worsening SOB for past few days along with worsening LE edema/abdominal swelling. No evidence of hypoxia or resp distress but work up consistent with acute on chronic diastolic HF. Patient admitted for IV diuresis and acute on chronic diastolic HF. Denies cough, fever/chills. Denies abdominal pain, nausea/vomiting. Reports compliance with diet but was taken off of lasix recently. Opioid HPI Opioid Management Most Recent Pain and Opioid Data: Last Pain Scale 7 06/09/24 10:02 Last Pain Assessment 06/09/24 11:13 Last ORT Total Score 0 06/09/24 08:55 Last ORT Risk Category Low Risk 06/09/24 08:55 Review of Systems ROS Status of ROS 10 or more systems reviewed and unremark able except as noted in history and below [facility] Medical History (Updated 06/09/24 @ 11:47 by Shaikh Isak MD) Acute renal failure ?N17.9 - Acute kidney failure, unspecified (ICD-10) Hyperkalemia ?E87.5 - Hyperkalemia (ICD-10) Acute dehydration ?E86.0 - Dehydration (ICD-10) CKD stage 3a, GFR 45-59 ml/min ?N18.31 - Chronic kidney disease, stage 3a (ICD-10) Diabetes mellitus with hyperglycemia, with long-term current use of insulin ?E11.65 - Type 2 diabetes mellitus with hyperglycemia (ICD-10) ?Z79.4 - exterminator helper (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9 - Obesity, unspecified (ICD-10) Surgical History (Updated 03/26/24 @ 06:36 by Brooke Conrad) H/O bilateral mastectomy ?Z90.13 - Acquired absence of bilateral breasts and nipples (ICD-10) Family History (Updated 07/08/23 @ 04:02 by Mira Addison) Other Family history of CHF (congestive heart failure) Family history of cancer Family history of diabetes mellitus Family history of hypertension H/O mastectomy Social History (Updated 03/26/24 @ 06:38 by Brooke Conrad) Within the past year, how often did you have a drink containing alcohol: never Within the past year, how often did you have six or more drinks on one occasion: never Score interpretation: A score less than 3 is consistent with normal alcohol consumption. 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 Highest level of school completed/degree received: some college, no degree Do you want help with school or training: No Are you now , , , , never or living with a partner: In a typical week, how many times do you talk on the telephone with family, friends, or neighbors: 3 or more times per week How often do you get together with friends or relatives: 3 or more times per week How often do you attend moravian or yazidism services: never Do you belong to any clubs or organizations such as moravian groups unions, fraternal or athletic groups, or school groups: no Total score: 2 Score interpretation: A score of greater than or equal to 2 indicates the lowest level of social isolation. Little interest or pleasure in doing things: not at all Feeling down, depressed, or hopeless: not at all Feel stressed/tense/nervous/anxious/difficulty sleeping: not at all Due to disability, difficulty making decisions: No Do you think of yourself as: straight/heterosexual Gender Identity: female Meds Home Medications and Allergies Home Medications ?Medication ?Instructions ?Recorded ?Confirmed ?Type insulin glargine 100 unit/mL (3 20 unit subcut BEDTIME 04/25/23 06/09/24 History mL) subcutaneous pen (Lantus Solostar U-100 Insulin) metoprolol tartrate 100 mg tablet 150 mg PO BID 04/25/23 06/09/24 History alprazolam 0.25 mg tablet 0.25 mg PO TID PRN anxiety 04/30/24 06/09/24 History levothyroxine 125 mcg tablet 125 mcg PO .acb 04/30/24 06/09/24 History oxycodone-acetaminophen 5 mg-325 1 tab PO BID PRN pain 04/30/24 06/09/24 History mg tablet insulin NPH isoph U-100 human 100 1 unit subcut QID 06/09/24 06/09/24 History unit/mL (3 mL) subcutaneous pen (Novolin N FlexPen) Allergies Allergy/AdvReac Type Severity Reaction Status Date / Time Iodinated Contrast Media Allergy Intermediate Hives Verified 06/09/24 05:03 shellfish derived Allergy Intermediate Hives Verified 06/09/24 05:03 Sulfa (Sulfonamide Allergy Rash Verified 06/09/24 05:03 Antibiotics) Exam Constitutional Vital Signs, click to edit/add: Last Vital Signs Temp 98.3 F 06/09/24 11:14 Pulse 72 06/09/24 11:14 Resp 18 06/09/24 11:14 BP 161/75 H 06/09/24 11:14 Pulse Ox 92 L 06/09/24 11:14 O2 Del Method Room Air 06/09/24 11:14 Documenting provider has reviewed patient's vital signs: yes Common normals: no apparent distress and oriented x3 General appearance: cooperative Nutritional appearance: obese Respiratory Common normals: normal respiratory effort and no use of accessory muscles Effort & inspection: able to speak in complete sentences Auscultation: diminished lung sounds Cardio Common normals: regular rate, S1 normal heart sound and S2 normal heart sound Rate: regular rate Heart sounds: S1 normal and S2 normal GI Common normals: Normal to inspection, nondistended, normoactive bowel sounds present, soft to palpation, non-tender and no hepatosplenomegaly Other: cutaneous candidiasis in abdomino/inguinal skin folds. Extremity Other: left arm lymphedema from mastectomy. b/l LE edema Neuro Common normals: oriented x3, moves all extremities and no focal motor deficits Psych Common normals: mental status grossly normal, denies hallucinations, denies homicidal ideation and denies suicidal ideation Results Labs Labs: Short CBC 06/09/24 Range/Units 05:20 WBC 8.9 (4.0-11.0) 10^3/uL Hgb 12.5 (12.0-16.0) g/dL Hct 37.7 (36.0-48.0) % Plt Count 205 (150-450) 10^3/uL BMP 06/09/24 05:20 Sodium 135 L Potassium 5.0 Chloride 103 Carbon Dioxide 27.1 BUN 28.0 H Creatinine 0.88 Glucose 142 H Calcium 8.6 Liver Function 06/09/24 Range/Units 05:20 Total Bilirubin 0.8 (0.2-1.0) mg/dL AST 34 (15-37) U/L ALT 18 (14-59) U/L Alkaline Phosphatase 86 (46-116) U/L Albumin 2.5 L (3.4-5.0) g/dL Assessment and Plan Assessment and Plan (1) Acute on chronic diastolic (congestive) heart failure: Assessment and Plan: Likely because her lasix was stopped recently by nephrology. Will start on IV Lasix 40 twice daily. Monitor intake and output. Daily weights. No need for an echo as one was done recently about 2 months ago (2) Diabetes mellitus with hyperglycemia, with long-term current use of insulin: Assessment and Plan: Continue with glargine and sliding scale insulin. Monitor blood glucose Qualifiers: Diabetes mellitus type: type 2 Qualified Code(s): E11.65 - Type 2 diabetes mellitus with hyperglycemia; Z79.4 - exterminator helper (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 insulin (3) Paroxysmal atrial fibrillation: Assessment and Plan: In normal sinus rhythm. Continue with metoprolol tartrate. Previously was on anticoagulation for stroke prophylaxis. (4) Hypothyroidism (acquired): Assessment and Plan: Continue with levothyroxine (5) Hypertension: Assessment and Plan: Blood pressure is above goal. Continue with metoprolol and IV Lasix. Monitor. IV hydralazine as needed Qualifiers: Hypertension type: primary hypertension Qualified Code(s): I10 - Essential (primary) hypertension (6) Obesity: Assessment and Plan: Recommend weight loss. Defer to outpatient. Qualifiers: Obesity type: due to excess calories Obesity classification: adult class 3 (BMI >= 40) Serious obesity comorbidity presence: with serious comorbidity Body mass index: BMI 40.0-44.9 Qualified Code(s): E66.01 - Morbid (severe) obesity due to excess calories; Z68.41 - Body mass index [BMI] 40.0- 44.9, adult
[2024-06-09] MEDS: LEVOTHYROXINE SODIUM 125 MCG TABLET PO (12:20)
[2024-06-09] MEDS: NYSTATIN 15 GM POWDER 1 APPLIC TOPICAL (13:04)
--- NOTE | 2024-06-09 13:15 | SWNOTE1 ---
OT did recommend home health. SW did get a call from PT and pt did better this afternoon and at this time home health is not recommended. SW to check therapy notes tomorrow to make sure pt is still doing well.
[2024-06-09] MEDS: METOPROLOL TARTRATE 50 MG TABLET 150 MG PO (21:02)
[2024-06-09] MEDS: INSULIN ASPART 300 UNIT/3 ML PEN SUBQ (21:04)
[2024-06-09] MEDS: INSULIN DETEMIR 300 UNIT/3 ML INSULN.PEN 20 UNIT SUBQ (21:05)
[2024-06-10] VITALS (9 sets, daily range): BP systolic 129–166; BP diastolic 73–74; PULSE 63–75; TEMP 36.6–36.7; O2SAT 94–97
[2024-06-10 01:23] LABS: Glucometer 99 mg/dL (74-106)
[2024-06-10] MEDS: LEVOTHYROXINE SODIUM 125 MCG TABLET PO (05:30)
[2024-06-10 06:24] LABS: Basophils Absolute Auto 0.1 10^3/uL (0.0-0.1); Eosinophils Absolute Auto 0.1 10^3/uL (0.0-0.7); Eosinophils Percent Auto 1.3 % (0.9-7.0); Hematocrit 36.8 % (36.0-48.0); Hemoglobin 12.1 g/dL (12.0-16.0); Immature Granulocytes Abs Auto 0.02 10^3/uL (0.00-0.03); Immature Granulocytes Pct Auto 0.3 % (0.0-0.5); Lymphocytes Absolute Auto 1.3 10^3/uL (1.2-3.8); Lymphocytes Percent Auto 16.8 % (20.5-60.0); Mean Corpuscular HGB Conc 32.9 g/dL (29.9-35.2); Mean Corpuscular Hemoglobin 29.8 pg (26.7-34.0); Mean Corpuscular Volume 90.6 fL (81.0-99.0); Mean Platelet Volume 11.2 fL (9.5-13.5); Monocytes Absolute Auto 0.8 10^3/uL (0.3-0.8); Monocytes Percent Auto 9.8 % (1.7-12.0); Neutrophils Absolute Auto 5.6 10^3/uL (1.4-6.5); Neutrophils Percent Auto 70.8 % (43.0-75.0); Platelet Count 189 10^3/uL (150-450); Red Blood Count 4.06 10^6/uL (4.20-5.40); Red Cell Distribution Width 14.6 % (11.0-15.0); White Blood Count 7.9 10^3/uL (4.0-11.0)
[2024-06-10 06:39] LABS: Alanine Aminotransferase 13 U/L (14-59); Albumin Globulin Ratio 0.5; Albumin Level 2.4 g/dL (3.4-5.0); Alkaline Phosphatase 94 U/L (46-116); Aspartate Amino Transferase 13 U/L (15-37); Bilirubin Total 0.9 mg/dL (0.2-1.0); Calcium 8.9 mg/dL (8.5-10.1); Carbon Dioxide 29.4 mmol/L (21.0-32.0); Chloride 101 mmol/L (98-107); Estimated GFR (African America >60 (>=60); Estimated GFR (Non-African Ame 54 (>=60); Globulin 4.5 g/dL; Glucose 167 mg/dL (74-106); Potassium 3.4 mmol/L (3.5-5.1); Sodium 136 mmol/L (136-145); Total Protein 6.9 g/dL (6.4-8.2)
[2024-06-10] MEDS: INSULIN ASPART 300 UNIT/3 ML PEN SUBQ (08:00)
[2024-06-10] MEDS: METOPROLOL TARTRATE 50 MG TABLET 150 MG PO (08:46)
[2024-06-10] MEDS: FUROSEMIDE 40 MG/4 ML VIAL IVP (08:52)
--- NOTE | 2024-06-10 10:44 | CM.NOTE ---
Rounds made with Dr. Parisi. Plan for discharge needs. Kati in agreement.
--- NOTE | 2024-06-10 10:49 | REH.PTDLY ---
Physical Therapy Daily Note PT Daily Note/Assess Start: 06/09/24 13:06 Freq: Status: Active Protocol: Document 06/10/24 10:46 SONIDO (Rec: 06/10/24 10:47 SONIDO [id number]) Visit Not Completed Visit Not Completed Due to: Pt refusing Other Reason Visit Not Completed Pt reports leaving to go home today. Declines therapy as she reports having diarrhea this morning. Pt is up ad karin in room. Physical Therapy Daily Note/Assessment Time In 09:20 Time Out 09:25
--- NOTE | 2024-06-10 11:05 | PM.DS1 ---
DS: Providers Provider Date of admission: 06/09/24 08:30 Primary care physician: Theodora Cuevas MD Admitting clinician: Shaikh Isak Attending physician on admission: Shaikh Isak Consults: 06/09/24 08:02 Occupational Therapy Eval and Treat Routine Reason for consultation: Ambulatory dysfunction/weakness Physical Therapy Eval and Treat Routine Reason for consultation: Ambulatory dysfunction/weakness Attending physician on discharge: Shaikh Isak Discharging clinician: Shaikh Isak Anticipated date of discharge: 06/10/24 DS: Diagnosis Discharge Diagnosis (1) Acute on chronic diastolic (congestive) heart failure: Assessment and plan: Improved with IV diuresis overnight. More or less euvolemic. Will discharge on oral Lasix. Will need to follow-up with cardiology and nephrology along with PCP as outpatient. (2) Diabetes mellitus with hyperglycemia, with long-term current use of insulin: Assessment and plan: Continue with home medications. Monitor as outpatient. Qualifiers: Diabetes mellitus type: type 2 Qualified Code(s): E11.65 - Type 2 diabetes mellitus with hyperglycemia; Z79.4 - exterminator 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 insulin (3) Paroxysmal atrial fibrillation: Assessment and plan: For unclear reason, patient is not on anticoagulation for stroke prophylaxis. Will defer to outpatient cardiology. (4) Hypothyroidism (acquired): Assessment and plan: Continue with levothyroxine (5) Hypertension: Assessment and plan: Blood pressure is stable. Continue with home medications. Qualifiers: Hypertension type: primary hypertension Qualified Code(s): I10 - Essential (primary) hypertension (6) Obesity: Assessment and plan: Patient will benefit from outpatient elevation for weight loss. Recommended caloric restriction and eating more vegetables/fruits. Qualifiers: Obesity type: due to excess calories Obesity classification: adult class 3 (BMI >= 40) Serious obesity comorbidity presence: with serious comorbidity Body mass index: BMI 40.0-44.9 Qualified Code(s): E66.01 - Morbid (severe) obesity due to excess calories; Z68.41 - Body mass index [BMI] 40.0-44.9, adult DS: Summary Hospital Course Hospital Course: 78-year-old female presented to ER with worsening shortness of breath along with lower extremity edema and lower abdominal wall edema after she was taken off of Lasix as outpatient. Patient's workup was consistent with acute on chronic diastolic heart failure for which she was started on IV Lasix. She responded well to IV diuretics and appears to be euvolemic today.. 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 Patient educated on worrisome signs and symptoms that should prompt her to seek care in ER. Status at Discharge Functional status at discharge: uses cane/walker Overall status at discharge: patient is back to baseline Time Spent with Patient Time attestation: Total time spent providing and/or coordinating discharge services: Time spent: greater than 30 minutes Quality: Stroke Symptom Onset Unknown: No Exam Constitutional Vital Signs, click to edit/add: Last Vital Signs Temp 98.0 F 06/10/24 08:44 Pulse 67 06/10/24 09:48 Resp 18 06/10/24 08:44 BP 129/73 06/10/24 08:44 Pulse Ox 94 L 06/10/24 08:44 O2 Del Method Room Air 06/10/24 08:44 Documenting provider has reviewed patient's vital signs: yes Common normals: no apparent distress and oriented x3 General appearance: cooperative Nutritional appearance: obese Respiratory Common normals: normal respiratory effort, no use of accessory muscles and clear to auscultation bilaterally Effort & inspection: able to speak in complete sentences Cardio Common normals: regular rate, S1 normal heart sound and S2 normal heart sound Rate: regular rate Heart sounds: S1 normal and S2 normal GI Common normals: Normal to inspection, nondistended, normoactive bowel sounds present, soft to palpation, non-tender and no hepatosplenomegaly Other: cutaneous candidiasis in abdomino/inguinal skin folds. Neuro Common normals: oriented x3, moves all extremities and no focal motor deficits Psych Common normals: mental status grossly normal, denies hallucinations, denies homicidal ideation and denies suicidal ideation DS: Data Data Completed and Pending Labs on day of discharge: Labs from last 24 hours 06/10/24 06/10/24 05:07 01:12 WBC 7.9 RBC 4.06 L Hgb 12.1 Hct 36.8 MCV 90.6 MCH 29.8 MCHC 32.9 RDW 14.6 Plt Count 189 MPV 11.2 Neut % (Auto) 70.8 Lymph % (Auto) 16.8 L [place] % (Auto) 9.8 Eos % (Auto) 1.3 Baso % (Auto) 1.0 Neut # (Auto) 5.6 Lymph # (Auto) 1.3 [place] # (Auto) 0.8 Eos # (Auto) 0.1 Baso # (Auto) 0.1 Abs Immat Gran (auto) 0.02 Imm/Tot Granulo (auto) 0.3 Sodium 136 Potassium 3.4 L Chloride 101 Carbon Dioxide 29.4 Anion Gap 9.0 BUN 24.0 H Creatinine 1.00 Est GFR ( Amer) >60 Est GFR (Non-Af Amer) 54 L BUN/Creatinine Ratio 24.0 Glucose 167 H Calcium 8.9 Total Bilirubin 0.9 AST 13 L ALT 13 L Alkaline Phosphatase 94 Total Protein 6.9 Albumin 2.4 L Globulin 4.5 Albumin/Globulin Ratio 0.5 POC Glucose 99 Discharge Plan Discharge Disposition: Home, Self-Care Discharge Medications: New furosemide [Lasix] 40 mg tablet 40 mg PO DAILY Qty: 30 0RF Continued insulin glargine [Lantus Solostar U-100 Insulin] 100 unit/mL (3 mL) insulin pen 20 unit SUBCUT BEDTIME metoprolol tartrate 100 mg tablet 150 mg PO BID levothyroxine 125 mcg tablet 125 mcg PO .acb alprazolam 0.25 mg tablet 0.25 mg PO TID PRN (Reason: anxiety) Patient Comments: 0.25mg PO TID PRN for anxiety oxycodone-acetaminophen 5-325 mg tablet 1 tab PO BID PRN (Reason: pain) Novolin N FlexPen 100 unit/mL (3 mL) insulin pen 1 unit SUBCUT QID Patient Comments: (if BLOOD SUGAR is BETWEEN 150-199 INJECT 3 (THREE) UNITS, if BETWEEN 200-249 INJECT FOUR UNITS, if BETWEEN 250-299 INJECT 7 (SEVEN) UNITS, if BETWEEN 300-349 INJECT TEN UNITS, if BETWEEN 350-399 INJECT 12 UNITS, if 400 or great INJECT 14 UNITS) Rx Instructions: SLIDING SCALE Activity: increase activity as tolerated Diet: advance to your usual diet Print Language: Gibraltarian Patient Instructions: Furosemide (By mouth), Heart Failure (DC) Forms: Portal Instructions Follow Up Appointments: F/u with ritesh cuevas in one sunday @ 1p [phone]
[2024-06-10] MEDS: POTASSIUM CHLORIDE 10 MEQ ER TABLET 40 MEQ PO (11:39)
--- NOTE | 2024-06-10 17:07 | NUTR.NU ---
Kati was admitted to [facility] 06/09/24 w/CHF exacerbation. She was given diuretics to resolve fluid overload and discharged to home 06/10/24. PO intakes of 1800 kcal CCD diet are good; suspect she still does not follow therapeutic diet guidelines at home (diet education was provided during previous admission in April,. Encouraged pt to phone Dietitian w/any diet questions or concerns.
--- NOTE | 2024-06-11 15:23 | CM.DCFOLLOWU ---
Person spoke with:patient How are you feeling? well, exercising on her exercise bike How is your pain? none Did you understand your discharge instructions? yes Do you have any questions about your discharge instructions? no Were you given any prescriptions at discharge? yes Were you able to get your prescriptions filled? yes Do you understand how to take your medications as ordered? yes Do you have any questions about your follow up appointment and do you plan to keep your follow up appointment? no questions, already had follow up scheduled with Dr. Cuevas Is there anything else that you would like to discuss? no Questions/Comments/Concerns/Other: none
== END 2024-06-10 11:50 | disposition home or self-care (01) ==
LOC: ER 08:31 → MS 08:33
PROVIDERS: Internal Medicine; Admitting Provider Internal Medicine; Emergency Provider Emergency Medicine Emergency Medical Services; PCP Family Medicine; Visit Provider Internal Medicine
DX: I11.0 Hypertensive heart disease with heart failure (principal); I50.33 Acute on chronic diastolic (congestive) heart failure; E11.65 Type 2 diabetes mellitus with hyperglycemia; Z79.4 Long term (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 insulin; I48.0 Paroxysmal atrial fibrillation; E03.9 Hypothyroidism, unspecified; Z79.890 Hormone replacement therapy; E66.01 Morbid (severe) obesity due to excess calories; Z68.41 Body mass index [BMI] 40.0-44.9, adult; I89.0 Lymphedema, not elsewhere classified; Z79.899 Other long term (current) drug therapy; Z90.13 Acquired absence of bilateral breasts and nipples
CPT/HCPCS: 36415; 71046; 74176; 80053; 83690; 83880; 84484; 85025; 85378; 87811; 94761; 96374; 96376; 97161; 97165; 99285; G0378; J1940

== ENCOUNTER 2024-06-17 12:48 | Outpatient (OUT) | payer MEDICARE, SELFPAY ==
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
== END 2024-06-17 12:49 | disposition home or self-care (01) ==
LOC: PM 12:49
PROVIDERS: PCP Family Medicine; Visit Provider Anesthesiology Pain Medicine
DX: M96.1 Postlaminectomy syndrome, not elsewhere classified (principal); M47.817 Spondylosis without myelopathy or radiculopathy, lumbosacral region; M79.18 Myalgia, other site; G92.9 Unspecified toxic encephalopathy; M62.838 Other muscle spasm
CPT/HCPCS: G0463

== ENCOUNTER 2024-06-24 07:56 | Outpatient (OUT) | payer MEDICARE, SELFPAY ==
[2024-06-24 09:19] LABS: Anion Gap 10.5; BUN Creatinine Ratio 23.9; Calcium 8.4 mg/dL (8.5-10.1); Carbon Dioxide 31.1 mmol/L (21.0-32.0); Chloride 100 mmol/L (98-107); Estimated GFR (African America 46 (>=60); Estimated GFR (Non-African Ame 38 (>=60); Glucose 222 mg/dL (74-106); Potassium 3.6 mmol/L (3.5-5.1); Sodium 138 mmol/L (136-145)
== END 2024-06-24 07:57 | disposition home or self-care (01) ==
LOC: LAB 07:58
PROVIDERS: PCP Family Medicine; Visit Provider Internal Medicine Interventional Cardiology
DX: I50.32 Chronic diastolic (congestive) heart failure (principal)
CPT/HCPCS: 36415; 80048

== ENCOUNTER 2024-07-01 09:01 | Day surgery (SDC) | payer MEDICARE, SELFPAY ==
[2024-07-01 09:18] VITALS: BP 145/70; PULSE 60; TEMP 36.5; O2SAT 96
--- OUTSIDE RECORDS SUMMARY | 2024-07-01 09:24 | XMS_ITS | CCD ---
Author Organization [facility] CliniSynv Care Team Providers Care Steam Hand Name Role Phone UNKNOWN, PROVIDER Unavailable Unavailable [...] SHANTEL STEVEN Consulting Unavailable Jaleesa Vanessa Unavailable MD Shantel Steven Primary Care Provider MD Shantel Steven Other Provider MD Eloina Hussein Attending Provider [phone] MD Eloina Hussein Referring Provider DO Jesus Barbour Emergency Provider Eloina Hussein Admitting Unavailable Shantel Steven Consulting Unavailable Shantel Steven Primary Care Unavailable Eloina Hussein Referring Unavailable Eloina Hussein Attending Unavailable Jesus Barbour Attending Unavailable Jesus Barbour Admitting Unavailable Shantel Steven Primary Care Unavailable MD Shantel Steven Primary Care Provider DO Jesus Barbour Emergency Provider ENZO BARNES Attending Unavailable ENZO BARNES Attending Unavailable RICA KAPLAN Attending Unavailable MICHELA DELACRUZ Attending Unavailable RICA KAPLAN Attending Unavailable MD Shantel Steven Primary Care Provider [phone] Allergies Allergy Classification Reported Allergen(s) Allergy Type Date of Onset Reaction(s) Facility (1 source) Iodine (And Iodine Containting Drugs) Drug allergy (disorder) 03-04-20 12 [facility] (20 sources) Shellfish; Translations: [Shellfish] Food allergy (disorder) 03-04-20 12 rash, Eruption of skin (disorder) [facility] (13 sources) Sulfonamides (Antibiotic); Translations: [SULFA (SULFONAMIDE ANTIBIOTICS)] Drug allergy (disorder) 03-04-20 12 Rash [facility] (20 sources) Sulfacetamide Drug Allergy 02-15-20 24 diarrhea [facility] (13 sources) Contrast media; Translations: [contrast media (iodine-based)] Drug allergy Unknown (qualifier value) [facility] [place] (2 sources) Sulfonamides (Antibiotic); Translations: [sulfa drugs] Drug allergy Diarrhea (finding) [facility] (2 sources) Glucosamine Drug Allergy [facility] (2 sources) Iodine (And Iodine Containting Drugs) Drug allergy (disorder) 08-09-20 17 [facility] (11 sources) Contrast media Propensity to adverse reactions 11-18-[address] DYE [employer] Other (12 sources) Iodine; Translations: [IODINE] Drug Allergy 10-30-20 14 [facility] (11 sources) Substance with sulfonamide structure and antibacterial mechanism of action (substance) Drug allergy Unknown [employer] Other (11 sources) Dyes Propensity to adverse reactions Comment:CT Dyes,Dyes,IVP Dyes b3 bio [facility] [employer] Other (11 sources) Shellfish; Translations: [shellfish derived] Allergy to substance 10-30-20 14 [facility] (11 sources) Iodinated Contrast Media; Translations: [Iodinated Contrast Media] Allergy to substance 02-15-20 24 [facility] (1 source) Sulfacetamide Drug Allergy 05-22-20 24 [facility] (1 source) Sulfonamides (Antibiotic) Drug allergy (disorder) 05-22-20 24 [facility] (1 source) Chocolate; Translations: [CHOCOLATE FLAVOR] Propensity to adverse reactions to drug (disorder) 01-17-20 23 [facility] Medications Current Medications Medication Drug Class(es) Dates Sig (Normalized) Sig (Original) 8 Hour Arthritis Pain Reliever (14 sources) ALPRAZolam 0.25 mg oral tablet (20 sources) Benzodiazepine Start: 06-05-2024 End: 06-07-2024 take 0.25 mg by mouth twice daily Alprazolam Active 0.25 MG PO Twice daily June 07, 2024 7:27am Start: 01-17-2024 End: 03-25-2024 take 0.25 mg by mouth [...] Ordered bifidobacterium infantis 4 mg oral capsule (3 sources) Start: 06-05-2024 take 1 capsule by mouth once daily Bifidobacterium Infantis (Align) 4 mg capsule Active 4 MG PO Daily June 05, 2024 12:00am biotin 10 mg oral capsule (16 sources) Start: 06-05-2024 take 20975 ug by mouth once daily Biotin Active 50096 MCG PO daily June 05, 2024 12:00am Start: 01-17-2024 End: 04-03-2024 take 5 mg by mouth once daily Biotin Discontinued 5 MG PO Daily January 17, 2024 1:00am April 03, 2024 11:46am take 1 capsule by [facility] every twenty-four hours Biotin 5 MG 1 capsule Orally Once a day Active cholecalciferol 0.025 mg oral capsule (18 sources) Vitamin D Start: 06-05-2024 take 25 ug by mouth once daily Cholecalciferol (Vitamin D3) Active 25 MCG PO Daily June 05, 2024 12:00am Start: 01-17-2024 End: 06-05-2024 take 125 ug by mouth once daily Cholecalciferol (Vitamin D3) Discontinued 125 MCG PO Daily January 17, 2024 1:00am June 05, 2024 12:02pm take 1 capsule by mo ut every twenty-four hours Vitamin D3 125 MCG (5000 UT) 1 capsule Orally Once a day Active take 1 capsule by mo [facility] every twenty-four hours Vitamin D3 25 MCG (1000 UT) 1 capsule Orally Once a day Active cholestyramine resin 4000 mg powder for oral suspension (1 source) Bile Acid Sequestrant Start: 04-26-2021 Questran 4 g/9 g oral powder = 1 packet(s), Oral, Daily, # 30 EA, Refills(s) 11, Pharmacy: [facility] ([facility] #[facility], 165.1, cm, 03/07/21 13:49:00 EDT, Height/Length [...] 2021 12:00am take 1 capsule by mo [facility] every twelve hours dilTIAZem HCl ER 120 MG 1 capsule Orally Twice a day Active famotidine 20 mg oral tablet (20 sources) Histamine-2 Receptor Antagonist Start: 01-17-2024 take 20 mg by mouth once daily at bedtime Famotidine Active 20 MG PO Daily at bedtime January 17, 2024 1:00am Start: 01-07-2023 [facility] Famotidine 20 MG 1 [...] Glucose Sensor (Freestyle Familia 2 Sensor) kit (4 sources) Start: 05-07-2024 Flash Glucose Sensor (Freestyle Familia 2 Sensor) kit Active 0 .Route May 07, 2024 12:00am As directed furosemide 20 mg oral tablet (20 sources) Loop Diuretic Start: 06-16-2024 take 1 tablet by mouth once daily Furosemide (Lasix) 20 mg tablet Active 20 MG PO Daily June 16, 2024 12:00am Start: 01-17-2024 End: 05-07-2024 take 1 tablet [...] Once a day Active 3 ml insulin glargine 100 unt/ml pen injector (20 sources) Insulin Analog Start: 06-05-2024 End: 06-13-2024 Insulin Glargine (Basaglar Kwikpen U-100 Insulin) 100 unit/mL (3 mL) insulin pen Active 20 UNIT SUBCUT Every evening June 13, 2024 11:12am Start: 03-25-2024 End: 04-03-2024 Insulin Glargine (Lantus Cha ostar U-100 Insulin) 100 unit/mL (3 mL) insulin pen Discontinued 20 UNIT SUBCUT Every morning March 25, 2024 12:00am April 03, 2024 11:47am Start: 06-12-2021 End: 03-25-2024 inject 35 [IU] by subcutaneous injection once daily in the evening Insulin Glargine (Lantus U-100 Insulin) 100 unit/mL solution Discontinued 35 UNIT SUBCUT Every evening January 17, 2024 5:15pm March 13, 2024 5:11pm Start: 06-12-2021 End: 01-17-2024 inject 40 [IU] [...] insulin isophane, human 100 unt/ml pen injector (9 sources) Start: 01-24-2024 inject 14 [IU] by [...] tablet (20 sources) l-Thyrox ine Start: 04-03-2024 End: 06-07-2024 take 1 tablet by mouth once daily Levothyroxine Active 0 .ROUTE .COMPLEX June 07, 2024 7:28am TAKE 1 TABLET BY MOUTH DAILY Start: 04-03-2024 End: 06-07-2024 Start: 04-03-2024 End: 04-03-2024 take 125 ug [...] tablet (20 sources) beta-Adrenergic Khadijah Start: 05-27-2024 End: 06-07-2024 Metoprolol Tartrate Active 0 .ROUTE .COMPLEX June 07, 2024 7:28am TAKE 1 AND 1/2 TABLETS TWICE DAILY Start: 02-19-2024 End: 05-27-2024 Metoprolol Tartrate Disconti nued 0 .ROUTE .COMPLEX 270 February 19, 2024 2:51pm May 27, 2024 3:55pm TAKE 1 AND 1/2 TABLETS TWICE DAILY Start: 02-19-2024 Metoprolol Tar trate Active 0 .ROUTE .COMPLEX 270 February 19, [...] 19, 2021 12:00am January 17, 2024 5:18pm Start: 06-19-2021 End: 01-17-2024 take 1 tablet by joesph th every [...] capsule Orally Once a day Active Vitamins A,C,E-Crgu-Tjdliy (Preservision Areds) 4,296 mcg-226 mg-90 mg capsule (8 sources) Start: 01-17-2024 take 1 capsule by mouth twice daily Vitamins A,C,R-Grdf-Pknmpr (Preservision Areds) 4,296 mcg-226 mg-90 mg capsule Active 1 CAP PO Twice daily January 17, 2024 1:00am (14 sources) Start: 06-05-2024 Start: 05-07-2024 Start: 04-29-2024 End: 06-05-2024 Start: 03-31-2024 Start: 03-31-2024 End: 03-31-2024 Start: 03-25-2024 Start: 02-19-2024 End: 05-27-2024 Start: 01-23-2024 End: 04-03-2024 Start: 01-22-2024 End: 01-23-2024 Start: 01-17-2024 Start: 01-17-2024 End: 04-03-2024 Start: 01-16-2024 End: 01-24-2024 Start: 01-15-2024 End: 01-16-2024 Start: 06-12-2021 End: 01-15-2024 Completed/Discontinued Medications Medication Drug Class(es) Dates Sig (Normalized) Sig (Original) acetaminophen 325 mg / oxyCODONE hydrochloride 5 mg oral tablet (20 sources) Opioid Agonist Start: 06-07-2024 End: 06-07-2024 take 1 tablet by mouth once daily Oxycodone-Acetamino phen Discontinued 1 TAB PO Daily June 07, 2024 June 07, 2024 7:30am Start: 06-07-2024 End: 06-07-2024 Start: 05-07-2024 End: 06-07-2024 take 1 tablet by mouth once daily Oxycodone-Acetaminophen Discontinued 1 TAB PO Daily June 05, 2024 June 07, 2024 7:29am Start: 01-04-2024 End: 05-07-2024 take 1 tablet by mouth twice daily Oxycodone-Acetaminophen Discontinued 1 TAB PO Twice daily January 04, 2024 March 03, 2024 4:30pm Start: 01-04-2024 End: 06-07-2024 Start: 11-19-2023 take 1 tablet by joesph twice daily as needed oxyCODONE-Acetaminophen 5-325 MG 1 tablet Orally TWICE A DAY NEEDED for 30 days Nov, Active Start: 10-22-2023 take 1 tablet by joesph th twice daily as needed oxyCODONE-Acetaminophen 5-325 MG 1 tablet Orally TWICE A DAY NEEDED for 30 days Oct, Active Start: 10-22-2023 take 1 tablet by joesph th once daily as needed oxyCODONE-Acetaminophen 5-325 MG 1 tablet Orally daily prn for 30 days Oct, Active Start: 08-23-2023 take 1 tablet by joesph th twice daily oxyCODONE-Acetaminophen 5-325 MG 1 tablet Orally two times daily Aug, Active Start: 07-23-2023 take 1 tablet by joesph th twice daily oxyCODONE-Acetaminophen 5-325 MG 1 tablet Orally two times daily for 30 days Jul, Active Start: 07-17-2023 take 1 tablet by [facility] twice daily oxyCODONE-Acetaminophen 5-325 MG 1 tablet Orally two times daily for 30 days Jul, Active Start: 05-22-2023 Start: 04-03-2023 take 1 tablet by [facility] twice daily oxyCODONE-Acetaminophen 5-325 MG 1 tablet Orally two times daily for 30 days March, Active Start: 02-02-2023 take 1 tablet by [facility] twice daily oxyCODONE-Acetaminophen 5-325 MG 1 tablet Orally two times daily for 30 days Jan, Active Start: 11-30-2022 take 1 tablet by [facility] twice daily oxyCODONE-Acetaminophen 5-325 MG 1 tablet Orally two times daily for 30 days Nov, Active Start: 07-27-2022 take 1 tablet by [facility] twice daily acetaminophen-oxycodone 325 mg-2.5 mg oral tablet 1 tab(s), Oral, BID, Refill(s) 0 Start Date: 07/27/22 Status: Ordered Start: 06-12-2021 End: 06-19-2021 take 1 tablet by mouth twice daily Oxycodone-Acetaminophen Discontinued 1 TAB PO Twice daily June 12, 2021 12:00am June 19, 2021 3:13am Start: 06-12-2021 End: 06-19-2021 [id number] 200 actuat albuterol 0.09 mg/actuat metered dose inhaler (14 sources) beta2-Adrenergic Agonist Start: 01-17-2024 End: 04-03-2024 take 1 puff(s) by inhalation every four hours Albuterol Sulfate Discontinued 2 PUFF INHALATION Every 4 hours January 17, 2024 1:00am April 03, 2024 11:36am Start: 01-17-2024 End: 04-03-2024 Start: 10-18-2023 take 2 puff(s) by in halation every four hours as needed Albuterol Sulfate HFA 108 (90 Base) MCG/ACT 2 puff Inhalation every 4 hrs prn Oct, Active amitriptyline hydrochloride 10 mg oral tablet (12 sources) Tricyclic Antidepressant take 1 tablet by mouth every twenty-four hours Amitriptyline HCl 10 MG 1 tablet at bedtime Orally Once a day Not-Taking amylase 012835 unt / lipase 77132 unt / protease 17633 unt delayed release oral capsule (10 sources) Start: End: Yhjiug-Isgknfch-Ytl lase (Creon) 24,000-76,000 -120,000 unit capsule,delayed release(DR/EC) Discontinued 1 - 2 CAP PO 1-2 TIMES DAILY June 11, 2021 12:00am June 19, 2021 3:12am Start: 06-11-2021 End: 06-19-2021 Start: 05-10-2021 Creon 24,000 u nits oral delayed release capsule See Instructions, take 3 caps with each meal and 2 caps with each snack., # 390 caplet(s), Refills(s) 0, Pharmacy: [facility] ([facility] #[facility], 165.1, cm, 04/18/21 13:02:00 EDT, Height/Length Dosing, 116.4, kg, 04/18/21 13:02:00 EDT, Weight Dosing Start Date: 05/10/21 Status: Ordered carvedilol 6.25 mg oral tablet (9 sources) alpha-Adrenergic Khadijah, beta-Adrenergic Khadijah Start: 06-12-2021 End: 01-17-2024 take 6.25 mg by mouth twice daily at mealtime Carvedilol Discontinued 6.25 MG PO Twice daily with meals 60 June 12, 2021 12:00am January 17, 2024 5:18pm cefdinir 300 mg oral capsule (9 sources) Cephalosporin Antibacterial Start: 06-12-2021 End: 01-17-2024 [...] day Active fluconazole 100 mg oral tablet (9 sources) Azole Antifungal Start: 06-12-2021 End: 01-17-2024 take 100 mg by mouth once daily Fluconazole Discontinued 100 MG PO Daily 05 18June 12, 2021 12:00am January 17, 2024 5:18pm Garlic (20 sources) Non-Standardized Food Allergenic Extract Start: 01-17-2024 End: 04-03-2024 Start: 01-17-2024 End: 04-03-2024 take 100 mg [...] 12, 2021 12:00am June 12, 2021 12:52pm Start: 06-12-2021 End: 06-12-2021 inject 1 [IU] by sub cutaneous injection once NovoLOG Mix 70/30 FlexPen (70-30) 100 UNIT/ML as directed Subcutaneous 1 unit per sliding scale Active Insulin Aspart U-100 (Novolog Flexpen U-100 Insulin) 100 unit/mL (3 mL) Insulin Pen (8 sources) Start: 06-12-2021 End: 01-15-2024 inject 14 [...] Insulin) 100 unit/mL (3 mL) insulin pen (16 sources) Start: 01-16-2024 End: 01-24-2024 inject 14 [...] 2024 3:13pm ketoconazole 20 mg/ml topical cream (9 sources) Azole Antifungal Start: 02-15-2024 End: 04-29-2024 Ketoconazole Discontinued 1 APPLIC TOPICAL Daily February 15, 2024 12:00am April 29, 2024 1:36pm Start: 02-15-2024 End: 04-29-2024 ketorolac tromethamine 5 mg/ml ophthalmic solution (9 sources) Nonsteroidal Anti-inflammatory Drug, Cyclooxygenase Inhibitor Start: 06-11-2021 End: 06-12-2021 Ketorolac Discontinued DROPS SOLUTION/ DROPS June 11, 2021 12:00am June 12, 2021 3:16am Start: 06-11-2021 End: 06-12-2021 lisinopril 20 mg oral tablet (20 sources) [...] THREE TIMES DAILY FOR 10 DAYS Start: 01-30-2024 End: 03-25-2024 Start: 01-29-2024 End: 01-30-2024 take 500 mg by mouth three times daily Metronidazole Discontinued 500 MG PO Three times daily 10 09January 29, 2024 12:00am January 30, 2024 12:56pm Start: 01-29-2024 End: 01-30-2024 Start: 07-23-2023 take 1 tablet by joesph [...] ICAL Twice daily June 05, 2024 12:06pm Start: 01-17-2024 End: 06-05-2024 Nystatin [id number] UNIT/GM 1 application Externally Twice a day for 10 days Active Nystatin [id number] UNIT/GM 1 application Externally Twice a day for 10 days Active Thompson 8-Ntb-Hff-Fish Oil (Fish Oil) 1,000 mg (120 mg-180 mg) capsule (8 sources) Start: 01-17-2024 End: 04-03-2024 take 1 capsule by mouth once daily Thompson 3-Zzv-Pdv-Fish Oil (Fish Oil) 1,000 mg (120 mg-180 mg) capsule Discontinued 1 CAP PO Daily January 17, 2024 1:00am April 03, 2024 11:49am Start: 01-17-2024 take 1 capsule by mo [facility] once daily Thompson 5-Lwv-Lnr-Fish Oil (Fish Oil) 1,000 mg (120 mg-180 mg) capsule Active 1 CAP PO Daily January 17, 2024 1:00am 24 hr oxybutynin chloride 10 mg extended release oral tablet (9 sources) Cholinergic Muscarinic Antagonist Start: 02-15-2024 End: 06-05-2024 take 10 mg by mouth once daily Oxybutynin Chloride Discontinued 10 MG PO Daily February 15, 2024 12:00am June 05, 2024 12:07pm selenomethionine 0.2 mg oral tablet (9 sources) Start: 01-17-2024 End: 04-03-2024 take 200 ug by mouth once daily Selenomethionine Discontinued 200 MCG PO Daily January 17, 2024 1:00am April 03, 2024 11:51am sucralfate 1000 mg oral tablet (20 sources) Aluminum Complex Start: 01-17-2024 End: 04-03-2024 [...] venlafaxine 37.5 mg extended release oral capsule (9 sources) Serotonin and Norepinephrine Reuptake Inhibitor Start: 06-11-2021 End: 01-17-2024 take 37.5 mg by mouth once daily Venlafaxine Discontinued 37.5 MG PO Daily June 11, 2021 12:00am January 17, 2024 5:18pm Problems Active Problems Problem Classification Problem Date Documented Date Episodic/Chronic Acute and unspecified renal failure (1 source) Acute kidney failure, unspecified Episodic Anxiety disorders (9 sources) Anxiety; Translations: [Anxiety disorder, unspecified] 01-30-2024 [...] Coronary arteriosclerosis; Translations: [Atherosclerotic heart disease of [place] coronary artery without angina pectoris] Onset: 2 01-17-2024 Chronic Coronary atherosclerosis and other heart disease (1 source) Coronary angioplasty status; Translations: [CORONARY ANGIOPLASTY STATUS] Onset: 3 Episodic Diabetes mellitus with complications (20 sources) Disorder of kidney due to diabetes mellitus; Translations: [Type 2 diabetes mellitus with diabetic chronic kidney disease] Onset: 3 07-27-2022 Chronic Diabetes mellitus without complication (13 sources) Diabetes mellitus; Translations: [Type 2 diabetes mellitus without complications] Onset: 2 07-27-2022 Chronic Diabetes mellitus without complication (9 sources) Hyperglycemia; Translations: [Hyperglycemia, unspecified] 06-12-2021 Episodic Disorders of lipid metabolism (10 sources) Hypercholesterolemia; Translations: [Hyperlipidemia] Onset: 2 07-27-2022 Chronic Diverticulosis and diverticulitis (20 sources) [...] Chronic Immunizations and screening for infectious disease (12 sources) Immunization due; Translations: [Encounter for immunization] 01-18-2024 Episodic Inflammation; infection of eye (except that caused by tuberculosis or sexually transmitteddisease) (9 sources) External hordeolum; Translations: [Hordeolum externum unspecified eye, unspecified eyelid] 01-18-2024 Episodic Intestinal infection (3 sources) Enterocolitis due to Clostridium difficile, not specified as recurrent Episodic Malaise and fatigue (1 source) Weakness Episodic Menopausal disorders (1 source) Hormone replacement therapy; Translations: [HORMONE REPLACEMENT THERAPY] Onset: 3 Episodic Mood disorders (1 source) Depressive disorder 07-27-2022 Chronic Mycoses (20 sources) Candidiasis of skin and nail; Translations: [...] sources) Long-term current use of insulin; Translations: [rodent exterminator (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 insulin] 01-17-2024 Episodic Other aftercare (1 source) Other halfway (current) drug therapy; Translations: [OTH GROUP HOME CURRENT DRUG THERAPY] Onset: 3 Episodic Other aftercare (1 source) residential (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 anticoagulants; Translations: [GROUP HOME CURRNT USE 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] Onset: 3 Episodic Other and ill-defined heart disease (1 source) Other ill-defined heart diseases; Translations: [OTHER ILL-DEFINED HEART DISEASES] Onset: 3 Chronic Other circulatory disease (1 source) Disorder of arteries and arterioles, unspecified; Translations: [DISORDER ARTERIES AND ARTERIOLES UNS] Onset: 3 Chronic Other circulatory disease (1 source) Carotid bruit 07-27-2022 Episodic Other connective tissue disease (2 sources) Repeated falls; Translations: [Repeated falls] Onset: 4 Episodic Other diseases of kidney and ureters (20 sources) Secondary hyperparathyroidism; Translations: [Secondary hyperparathyroidism of renal origin] 01-17-2024 Chronic Other diseases of kidney and ureters (9 sources) Secondary hyperparathyroidism of renal origin; Translations: [Secondary hyperparathyroidism (of renal origin)] 03-25-2024 Chronic Other diseases of veins and lymphatics (9 sources) Lymphedema; Translations: [Lymphedema, not elsewhere classified] 01-17-2024 Chronic Other eye disorders (9 sources) Chalazion; Translations: [Chalazion right eye, unspecified [...] UNSPECIFIED] Onset: 2 Episodic Other gastrointestinal disorders (5 sources) Swollen abdomen; Translations: [Generalized intra-abdominal and pelvic swelling, mass and lump] 05-07-2024 Episodic Other gastrointestinal disorders (5 sources) Generalized intra-abdominal and pelvic swelling, mass and lump; Translations: [Abdominal or pelvic swelling, mass, or lump, generalized] 05-07-2024 Episodic Other lower respiratory disease (3 sources) Shortness of breath; Translations: [SHORTNESS OF BREATH] Onset: 3 Episodic Other lower respiratory disease (9 sources) Dyspnea; Translations: [Dyspnea, unspecified] 06-12-2021 Episodic Other nervous system disorders (3 sources) Tremor, unspecified; Translations: [Abnormal involuntary movements] Episodic Other nervous system disorders (2 sources) Tremor; Translations: [Tremor, unspecified] 06-16-2024 Episodic Other nervous system disorders (2 sources) Other abnormalities of gait and mobility; Translations: [Other abnormalities of gait and mobility] Onset: 4 Episodic Other nutritional; endocrine; and metabolic disorders [...] Chronic Other nutritional; endocrine; and metabolic disorders (9 sources) Intolerance to lactose; Translations: [Lactose intolerance, unspecified] 01-17-2024 Chronic Other nutritional; endocrine; and metabolic disorders (20 sources) Loss of appetite; Translations: [Anorexia] Episodic Other upper respiratory infections (1 source) Pharyngitis; Translations: [Acute pharyngitis, unspecified] 06-25-2024 Episodic Pancreatic disorders (not diabetes) (1 source) Exocrine pancreatic insufficiency 07-27-2022 Episodic Phlebitis; thrombophlebitis and thromboembolism (2 sources) Phlebitis and thrombophlebitis of superficial vessels of unspecified lower extremity; Translations: [Phlebitis and thrombophlebitis of superficial vessels of unspecified lower extremity] Onset: 4 Episodic Pulmonary heart disease (1 source) Pulmonary [...] Retinal detachments; defects; vascular occlusion; and retinopathy (10 sources) Unspecified macular degeneration; Translations: [Degenerative disorder [...] Spondylosis; intervertebral disc disorders; other back problems (15 sources) Chronic low back pain; Translations: [Post-surgery back pain] 07-27-2022 Episodic Syncope (9 sources) Near syncope; Translations: [Syncope and collapse] 06-19-2021 Episodic Thyroid disorders (16 sources) Hypothyroidism; Translations: [Hypothyroidism, unspecified] 07-27-2022 Chronic Unclassified (1 source) CONTACT W/AND (SUSP) EXPOS COVID-19; Translations: [CONTACT W/AND (SUSP) EXPOS COVID-19] Onset: 3 Unclassified (1 source) Low back pain, unspecified; Translations: [Low back pain, unspecified] Onset: Urinary tract infections (10 sources) Urinary tract infectious disease; Translations: [Urinary tract infection, site not specified] 05-07-2024 Episodic Past or Other Problems Problem Classification Problem Date Documented Da te Episodic/Chronic Other aftercare (4 sources) rodent exterminator (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 insulin; Translations: [INVASIVE MANAGER CURRENT USE OF INSULIN] Onset: 02-19-2023 Episodic Residual codes; unclassified (1 source) Generalized edema; Translations: [GENERALIZED EDEMA] Onset: 09-21-2022 Episodic Results Test Name Value Interpretation Reference Range Facility Estimated glomerular filtrat ion rate (GFR) non- Americanon 06-24-2024 GFR/1.73 sq M.predicted among non-blacks MDRD (S/P/Bld) [Vol rate/Area] 38 mL/min/{1.73_m2} Low >=60 [facility] - Chemistry and C hemistry - challengeon 06-24-2024 Calcium [Mass/Vol] 8.4 mg/dL Low 8.5-10.[address] [facility] Chloride [Moles/Vol] 100 mmol/L 98-107 [facility] CO2 [Moles/Vol] 31.1 mmol/L 21.0-32.0 [facility] Creatinine [Mass/Vol] 1.34 mg/dL High 0.55-1.02 [facility] GFR/1.73 sq M.predicted MDRD (S/P/Bld) [Vol rate/Area] 46 mL/min/{1.73_m2} Low >=60 [facility] Glucose [Mass/Vol] 222 mg/dL High 74-[address] [facility] Potassium [Moles/Vol] 3.6 mmol/L 3.5-5.1 [facility] Sodium [Moles/Vol] 138 mmol/L 136-[address] [facility] Urea nitrogen [Mass/Vol] 32.0 mg/dL High 7.0-18.0 [facility] Urea nitrogen/Creatinine [Mass ratio] 23.9 mg/mg [facility] Serum or plasma anion gap de terminationon 06-24-2024 Anion gap [Moles/Vol] 10.5 mmol/L Fi [facility] Visiton 06-18-2024 Follow-up visit [id number] Joe Call 1945 F Date Provider Department Center 06/18/2024 RICA DEAN LOVE Afsaneh Bruno Family History Problem Relation Age of Onset Coronary artery disease Other Diabetes Other Polycystic kidney disease Other Family Status - Relation Status Age at Other Level of Service:[address] [facility] OFFICE/OUTPATIENT ESTABLISHED MOD MDM 30 MIN Normal [facility] Basophils Auto (Bld) [#/Vol] on 06-10-2024 Basophils (Bld) [#/Vol] 0.1 10 3/uL 0.0-0.1 [facility] Basophils/100 WBC Auto (Bld) on 06-10-2024 Basophils/100 WBC (Bld) 1.0 % 0.2-2.0 [facility] Eosinophils/100 WBC Auto (Bl d)on 06-10-2024 Eosinophils/100 WBC (Bld) 1.3 % 0.9-7.0 [facility] Erythrocyte distribution wid th Auto (RBC) [Ratio]on 06-10-2024 Erythrocyte distribution width (RBC) [Ratio] 14.6 % 11.0-15.0 [facility] Estimated glomerular filtrat ion rate (GFR) non- Americanon 06-10-2024 GFR/1.73 sq M.predicted among non-blacks MDRD (S/P/Bld) [Vol rate/Area] 54 mL/min/{1.73_m2} Low >=60 [facility] Globulin Calc (S) [Mass/Vol] on 06-10-2024 Globulin (S) [Mass/Vol] 4.5 g/dL [facility] Hematocrit Auto (Bld) [Volum e fraction]on 06-10-2024 Hematocrit (Bld) [Volume fraction] 36.8 % 36.0-48.0 [facility] Hemoglobin [Mass/volume] in Bloodon 06-10-2024 Hemoglobin (Bld) [Mass/Vol] 12.1 g/dL 12.0-16.0 [facility] Laboratory - Chemistry and C hemistry - challengeon 06-10-2024 Albumin [Mass/Vol] 2.4 g/dL Low 3.4-5.[address] [facility] ALP [Catalytic activity/Vol] 94 U/L 46-116 [facility] ALT [Catalytic activity/Vol] 13 U/L Low 14-59 [facility] AST [Catalytic activity/Vol] 13 U/L Low 15-37 [facility] Bilirubin [Mass/Vol] 0.9 mg/dL 0.2-1.0 [facility] Calcium [Mass/Vol] 8.9 mg/dL 8.5-10.[address] [facility] Chloride [Moles/Vol] 101 mmol/L 98-107 [facility] CO2 [Moles/Vol] 29.4 mmol/L 21.0-32.0 [facility] Creatinine [Mass/Vol] 1.00 mg/dL 0.55-1.02 [facility] GFR/1.73 sq M.predicted MDRD (S/P/Bld) [Vol rate/Area] mL/min/{1.73_m2} >=60 [facility] Glucose [Mass/Vol] 167 mg/dL High 74-[address] [facility] Potassium [Moles/Vol] 3.4 mmol/L Low 3.5-5.1 [facility] Protein [Mass/Vol] 6.9 g/dL 6.4-8.[address] [facility] Sodium [Moles/Vol] 136 mmol/L 136-[address] [facility] Urea nitrogen [Mass/Vol] 24.0 mg/dL High 7.0-18.0 [facility] Urea nitrogen/Creatinine [Mass ratio] 24.0 mg/mg [facility] Laboratory - Hematology and Cell countson 06-10-2024 Immature granulocytes/100 WBC (Bld) 0.3 % 0.0-0.5 [facility] Leukocytes [#/volume] correc gali for nucleated erythrocytes in Blood by Automated counon 06-10-2024 WBC corrected for nucl RBC Auto (Bld) [#/Vol] 7.9 10 3/uL 4.0-11.0 [facility] Lymphocytes Auto (Bld) [#/Vo l]on 06-10-2024 Lymphocytes (Bld) [#/Vol] 1.3 10 3/uL 1.2-3.8 [facility] Lymphocytes/100 WBC Auto (Bl d)on 06-10-2024 Lymphocytes/100 WBC (Bld) 16.8 % Low 20.5-60.0 [facility] MCH Auto (RBC) [Entitic mass ]on 06-10-2024 MCH (RBC) [Entitic mass] 29.8 pg 26.7-34.0 [facility] MCHC Auto (RBC) [Mass/Vol]on 06-10-2024 MCHC (RBC) [Mass/Vol] 32.9 g/dL 29.9-35.2 [facility] MCV Auto (RBC) [Entitic vol] on 06-10-2024 MCV (RBC) [Entitic vol] 90.6 fL 81.0-99.0 [facility] Monocytes Auto (Bld) [#/Vol] on 06-10-2024 Monocytes (Bld) [#/Vol] 0.8 10 3/uL 0.3-0.8 [facility] Monocytes/100 WBC Auto (Bld) on 06-10-2024 Monocytes/100 WBC (Bld) 9.8 % 1.7-12.0 [facility] Neutrophils Auto (Bld) [#/Vo l]on 06-10-2024 Neutrophils (Bld) [#/Vol] 5.6 10 3/uL 1.4-6.5 [facility] Neutrophils/100 WBC Auto (Bl d)on 06-10-2024 Neutrophils/100 WBC (Bld) 70.8 % 43.0-75.0 [facility] No Panel Informationon 06-10 Eosinophils # (Auto) 0.1 10 3/uL 0.0-0.7 [facility] Immature Granulocyte # (Auto) 0.02 10 3/uL 0.00-0.03 [facility] 2.4 g/dL Low 3.4-5.0 [facility] 0.1 10 3/uL 0.0-0.7 [facility] 94 U/L 46-116 [facility] 13 U/L Low 15-37 [facility] 24.0 [facility] 0.02 10 3/uL 0.00-0.03 [facility] 24.0 mg/dL High 7.0-18.0 [facility] 0.3 % 0.0-0.5 [facility] 8.9 mg/dL 8.5-10.1 [facility] 101 mmol/L 98-107 [facility] 29.4 mmol/L 21.0-32.0 [facility] 1.00 mg/dL 0.55-1.02 [facility] >60 >=60 [facility] 167 mg/dL High 74-106 [facility] 3.4 mmol/L Low 3.5-5.1 [facility] 136 mmol/L 136-145 [facility] 0.9 mg/dL 0.2-1.0 [facility] 6.9 g/dL 6.4-8.2 [facility] Platelet mean volume Auto (B ld) [Entitic vol]on 06-10-2024 Platelet mean volume (Bld) [Entitic vol] 11.2 fL 9.5-13.5 [facility] Platelets Auto (Bld) [#/Vol] on 06-10-2024 Platelets (Bld) [#/Vol] 189 10 3/uL 150-450 [facility] RBC Auto (Bld) [#/Vol]on RBC (Bld) [#/Vol] 4.06 10 6/uL Low 4.20-5.40 [facility] Serum or plasma albumin/glob ulin mass ratioon 06-10-2024 Albumin/Globulin [Mass ratio] 0.5 {ratio} [facility] Serum or plasma anion gap de terminationon 06-10-2024 Anion gap [Moles/Vol] 9.0 mmol/L [facility] Basophils Auto (Bld) [#/Vol] on 06-09-2024 Basophils (Bld) [#/Vol] 0.1 10 3/uL 0.0-0.1 [facility] Basophils/100 WBC Auto (Bld) on 07-29-2024 Basophils/100 WBC (Bld) 1.0 % 0.2-2.0 [facility] Eosinophils/100 WBC Auto (Bl d)on 06-09-2024 Eosinophils/100 WBC (Bld) 1.5 % 0.9-7.0 [facility] Erythrocyte distribution wid th Auto (RBC) [Ratio]on 06-09-2024 Erythrocyte distribution width (RBC) [Ratio] 14.8 % 11.0-15.0 [facility] Estimated glomerular filtrat ion rate (GFR) non- Americanon 06-09-2024 GFR/1.73 sq M.predicted among non-blacks MDRD (S/P/Bld) [Vol rate/Area] mL/min/{1.73_m2} >=60 [facility] Fibrin D-dimer [Presence] in Platelet poor plasma by Latex agglutinationon 06-09-2024 Fibrin D-dimer LA Ql (PPP) 0.39 mg/L FEU <=0.59 [facility] Comment on above: Increases in D-Dimer [...] diabetes, thrombolyticor anticoagulant therapy, stress, and generalizedhospitalization. Globulin Calc (S) [Mass/Vol] on 06-09-2024 Globulin (S) [Mass/Vol] 4.8 g/dL [facility] Hematocrit Auto (Bld) [Volum e fraction]on 06-09-2024 Hematocrit (Bld) [Volume fraction] 37.7 % 36.0-48.0 [facility] Hemoglobin [Mass/volume] in Bloodon 06-09-2024 Hemoglobin (Bld) [Mass/Vol] 12.5 g/dL 12.0-16.0 [facility] Laboratory - Chemistry and C hemistry - challengeon 06-09-2024 Albumin [Mass/Vol] 2.5 g/dL Low 3.4-5.[address] [facility] ALP [Catalytic activity/Vol] 86 U/L 46-116 [facility] ALT [Catalytic activity/Vol] 18 U/L 14-59 [facility] AST [Catalytic activity/Vol] 34 U/L 15-37 [facility] Bilirubin [Mass/Vol] 0.8 mg/dL 0.2-1.0 [facility] Calcium [Mass/Vol] 8.6 mg/dL 8.5-10.[address] [facility] Chloride [Moles/Vol] 103 mmol/L 98-107 [facility] CO2 [Moles/Vol] 27.1 mmol/L 21.0-32.0 [facility] Creatinine [Mass/Vol] 0.88 mg/dL 0.55-1.02 [facility] GFR/1.73 sq M.predicted MDRD (S/P/Bld) [Vol rate/Area] mL/min/{1.73_m2} >=60 [facility] Glucose [Mass/Vol] 142 mg/dL High 74-[address] [facility] Lipase [Catalytic activity/Vol] 45.0 U/L 16.0-77.0 [facility] Natriuretic peptide B (Bld) [Mass/Vol] 3488.0 pg/mL High <=1800.0 [facility] Comment on above: RESULTS CALLED TO MAIDA MCGOWAN RN @BY Alla Kevin [phone] Potassium [Moles/Vol] 5.0 mmol/L 3.5-5.1 [facility] Protein [Mass/Vol] 7.3 g/dL 6.4-8.[address] [facility] Sodium [Moles/Vol] 135 mmol/L Low 136-[address] [facility] Urea nitrogen [Mass/Vol] 28.0 mg/dL High 7.0-18.0 [facility] Urea nitrogen/Creatinine [Mass ratio] 31.8 mg/mg [facility] Laboratory - Hematology and Cell countson 06-09-2024 Immature granulocytes/100 WBC (Bld) 0.3 % 0.0-0.5 [facility] - Microbiology an d Antimicrobial susceptibilityon 06-09-2024 SARS-CoV-2 (COVID-19) RNA FERN+probe Ql (Unsp spec) Negative NEGATIVE [facility] Comment on above: This test has not be en FDA cleared or approved, but has beenauthorized by the FDA under an Emergency Use Authorization(EUA) for use by authorized laboratories certified underIA that meet the requirements to perform moderate or highcomplexity testing. This test has been authorized only forthe detection of proteins from SARS-CoV-2, not for any otherviruses or pathogens. The emergency use of this test isauthorized for the duration of the declaration thatcircumstances exist justifying the authorization ofemergency use of in vitro diagnostic tests for detectionand/or diagnosis of Covid-19 under section 564(b)(1) of theAct, U.S.C. 360bbb-3(b)(1), unless the declaration isterminated or authorization is revoked sooner. Leukocytes [#/volume] correc gali for nucleated erythrocytes in Blood by Automated counon 06-09-2024 WBC corrected for nucl RBC Auto (Bld) [#/Vol] 8.9 10 3/uL 4.0-11.0 [facility] Lymphocytes Auto (Bld) [#/Vo l]on 06-09-2024 Lymphocytes (Bld) [#/Vol] 1.3 10 3/uL 1.2-3.8 [facility] Lymphocytes/100 WBC Auto (Bl d)on 06-09-2024 Lymphocytes/100 WBC (Bld) 15.1 % Low 20.5-60.0 [facility] MCH Auto (RBC) [Entitic mass ]on 06-09-2024 MCH (RBC) [Entitic mass] 30.3 pg 26.7-34.0 [facility] MCHC Auto (RBC) [Mass/Vol]on 06-09-2024 MCHC (RBC) [Mass/Vol] 33.2 g/dL 29.9-35.2 [facility] MCV Auto (RBC) [Entitic vol] on 06-09-2024 MCV (RBC) [Entitic vol] 91.5 fL 81.0-99.0 [facility] Monocytes Auto (Bld) [#/Vol] on 06-09-2024 Monocytes (Bld) [#/Vol] 0.7 10 3/uL 0.3-0.8 [facility] Monocytes/100 WBC Auto (Bld) on 06-09-2024 Monocytes/100 WBC (Bld) 7.9 % 1.7-12.0 [facility] Neutrophils Auto (Bld) [#/Vo l]on 06-09-2024 Neutrophils (Bld) [#/Vol] 6.6 10 3/uL High 1.4-6.5 [facility] Neutrophils/100 WBC Auto (Bl d)on 06-09-2024 Neutrophils/100 WBC (Bld) 74.2 % 43.0-75.0 [facility] No Panel Informationon 06-09 Negative NEGATIVE [facility] Eosinophils # (Auto) 0.1 10 3/uL 0.0-0.7 [facility] Immature Granulocyte # (Auto) 0.03 10 3/uL 0.00-0.03 [facility] Troponin I High Sensitivity 17.0 pg/mL 4.0-51.3 [facility] Comment on above: CUT-OFF POINTS HAVE [...] IN CONJUNCTIONWITH OTHER DIAGNOSTIC AND CLINICAL INFORMATION. 3488.0 pg/mL High <=1800.0 [facility] 45.0 U/L 16.0-77.0 [facility] 17.0 pg/mL 4.0-51.3 [facility] 2.5 g/dL Low 3.4-5.0 [facility] 0.1 10 3/uL 0.0-0.7 [facility] 86 U/L 46-116 [facility] 18 U/L 14-59 [facility] 34 U/L 15-37 [facility] 31.8 [facility] 0.03 10 3/uL 0.00-0.03 [facility] 28.0 mg/dL High 7.0-18.0 [facility] 0.3 % 0.0-0.5 [facility] 8.6 mg/dL 8.5-10.1 [facility] 103 mmol/L 98-107 [facility] 27.1 mmol/L 21.0-32.0 [facility] 0.88 mg/dL 0.55-1.02 [facility] >60 >=60 [facility] 142 mg/dL High 74-106 [facility] 5.0 mmol/L 3.5-5.1 [facility] 135 mmol/L Low 136-145 [facility] 0.8 mg/dL 0.2-1.0 [facility] 7.3 g/dL 6.4-8.2 [facility] Platelet mean volume Auto (B ld) [Entitic vol]on 06-09-2024 Platelet mean volume (Bld) [Entitic vol] 12.4 fL 9.5-13.5 [facility] Platelets Auto (Bld) [#/Vol] on 06-09-2024 Platelets (Bld) [#/Vol] 205 10 3/uL 150-450 [facility] RBC Auto (Bld) [#/Vol]on RBC (Bld) [#/Vol] 4.12 10 6/uL Low 4.20-5.40 [facility] Serum or plasma albumin/glob ulin mass ratioon 06-09-2024 Albumin/Globulin [Mass ratio] 0.5 {ratio} [facility] Serum or plasma anion gap de terminationon 06-09-2024 Anion gap [Moles/Vol] 9.9 mmol/L [facility] Basophils Auto (Bld) [#/Vol] on 06-01-2024 Basophils (Bld) [#/Vol] 0.1 10 3/uL 0.0-0.1 [facility] Basophils/100 WBC Auto (Bld) on 06-01-2024 Basophils/100 WBC (Bld) 0.9 % 0.2-2.0 [facility] Eosinophils/100 WBC Auto (Bl d)on 06-01-2024 Eosinophils/100 WBC (Bld) 1.2 % 0.9-7.0 [facility] Erythrocyte distribution wid th Auto (RBC) [Ratio]on 06-01-2024 Erythrocyte distribution width (RBC) [Ratio] 14.1 % 11.0-15.0 [facility] Estimated glomerular filtrat ion rate (GFR) non- Americanon 06-01-2024 GFR/1.73 sq M.predicted among non-blacks MDRD (S/P/Bld) [Vol rate/Area] 47 mL/min/{1.73_m2} Low >=60 [facility] Globulin Calc (S) [Mass/Vol] on 06-01-2024 Globulin (S) [Mass/Vol] 4.4 g/dL [facility] Hematocrit Auto (Bld) [Volum e fraction]on 06-01-2024 Hematocrit (Bld) [Volume fraction] 37.6 % 36.0-48.0 [facility] Hemoglobin [Mass/volume] in Bloodon 06-01-2024 Hemoglobin (Bld) [Mass/Vol] 12.5 g/dL 12.0-16.0 [facility] Laboratory - Chemistry and C hemistry - challengeon 06-01-2024 Albumin [Mass/Vol] 2.7 g/dL Low 3.4-5.[address] [facility] ALP [Catalytic activity/Vol] 87 U/L 46-116 [facility] ALT [Catalytic activity/Vol] 18 U/L 14-59 [facility] AST [Catalytic activity/Vol] 16 U/L 15-37 [facility] Bilirubin [Mass/Vol] 0.5 mg/dL 0.2-1.0 [facility] Calcium [Mass/Vol] 8.7 mg/dL 8.5-10.[address] [facility] Chloride [Moles/Vol] 101 mmol/L 98-107 [facility] CO2 [Moles/Vol] 28.9 mmol/L 21.0-32.0 [facility] Creatinine [Mass/Vol] 1.12 mg/dL High 0.55-1.02 [facility] GFR/1.73 sq M.predicted MDRD (S/P/Bld) [Vol rate/Area] 57 mL/min/{1.73_m2} Low >=60 [facility] Glucose [Mass/Vol] 232 mg/dL High 74-[address] [facility] Potassium [Moles/Vol] 4.1 mmol/L 3.5-5.1 [facility] Protein [Mass/Vol] 7.1 g/dL 6.4-8.[address] [facility] Sodium [Moles/Vol] 137 mmol/L 136-[address] [facility] Urea nitrogen [Mass/Vol] 23.0 mg/dL High 7.0-18.0 [facility] Urea nitrogen/Creatinine [Mass ratio] 20.5 mg/mg [facility] Laboratory - Hematology and Cell countson 06-01-2024 Immature granulocytes/100 WBC (Bld) 0.2 % 0.0-0.5 [facility] Leukocytes [#/volume] correc gali for nucleated erythrocytes in Blood by Automated counon 06-01-2024 WBC corrected for nucl RBC Auto (Bld) [#/Vol] 9.0 10 3/uL 4.0-11.0 [facility] Lymphocytes Auto (Bld) [#/Vo l]on 06-01-2024 Lymphocytes (Bld) [#/Vol] 1.4 10 3/uL 1.2-3.8 [facility] Lymphocytes/100 WBC Auto (Bl d)on 06-01-2024 Lymphocytes/100 WBC (Bld) 15.9 % Low 20.5-60.0 [facility] MCH Auto (RBC) [Entitic mass ]on 06-01-2024 MCH (RBC) [Entitic mass] 29.5 pg 26.7-34.0 [facility] MCHC Auto (RBC) [Mass/Vol]on 06-01-2024 MCHC (RBC) [Mass/Vol] 33.2 g/dL 29.9-35.2 [facility] MCV Auto (RBC) [Entitic vol] on 06-01-2024 MCV (RBC) [Entitic vol] 88.7 fL 81.0-99.0 [facility] Monocytes Auto (Bld) [#/Vol] on 06-01-2024 Monocytes (Bld) [#/Vol] 0.8 10 3/uL 0.3-0.8 [facility] Monocytes/100 WBC Auto (Bld) on 06-01-2024 Monocytes/100 WBC (Bld) 8.5 % 1.7-12.0 [facility] Neutrophils Auto (Bld) [#/Vo l]on 06-01-2024 Neutrophils (Bld) [#/Vol] 6.6 10 3/uL High 1.4-6.5 [facility] Neutrophils/100 WBC Auto (Bl d)on 06-01-2024 Neutrophils/100 WBC (Bld) 73.3 % 43.0-75.0 [facility] No Panel Informationon 06-01 Eosinophils # (Auto) 0.1 10 3/uL 0.0-0.7 [facility] Immature Granulocyte # (Auto) 0.02 10 3/uL 0.00-0.03 [facility] 2.7 g/dL Low 3.4-5.0 [facility] 0.1 10 3/uL 0.0-0.7 [facility] 87 U/L 46-116 [facility] 18 U/L 14-59 [facility] 16 U/L 15-37 [facility] 20.5 [facility] 0.02 10 3/uL 0.00-0.03 [facility] 23.0 mg/dL High 7.0-18.0 [facility] 0.2 % 0.0-0.5 [facility] 8.7 mg/dL 8.5-10.1 [facility] 101 mmol/L 98-107 [facility] 28.9 mmol/L 21.0-32.0 [facility] 1.12 mg/dL High 0.55-1.02 [facility] 57 Low >=60 [facility] 232 mg/dL High 74-106 [facility] 4.1 mmol/L 3.5-5.1 [facility] 137 mmol/L 136-145 [facility] 0.5 mg/dL 0.2-1.0 [facility] 7.1 g/dL 6.4-8.2 [facility] Platelet mean volume Auto (B ld) [Entitic vol]on 06-01-2024 Platelet mean volume (Bld) [Entitic vol] 11.1 fL 9.5-13.5 [facility] Platelets Auto (Bld) [#/Vol] on 06-01-2024 Platelets (Bld) [#/Vol] 162 10 3/uL 150-450 [facility] RBC Auto (Bld) [#/Vol]on RBC (Bld) [#/Vol] 4.24 10 6/uL 4.20-5.40 [facility] Serum or plasma albumin/glob ulin mass ratioon 06-01-2024 Albumin/Globulin [Mass ratio] 0.6 {ratio} [facility] Serum or plasma anion gap de terminationon 06-01-2024 Anion gap [Moles/Vol] 11.2 mmol/L Fi [facility] Basophils Auto (Bld) [#/Vol] on 05-26-2024 Basophils (Bld) [#/Vol] 0.1 10 3/uL 0.0-0.1 [facility] Basophils/100 WBC Auto (Bld) on 05-26-2024 Basophils/100 WBC (Bld) 1.1 % 0.2-2.0 [facility] Eosinophils/100 WBC Auto (Bl d)on 05-26-2024 Eosinophils/100 WBC (Bld) 2.1 % 0.9-7.0 [facility] Erythrocyte distribution wid th Auto (RBC) [Ratio]on 05-26-2024 Erythrocyte distribution width (RBC) [Ratio] 14.0 % 11.0-15.0 [facility] Estimated glomerular filtrat ion rate (GFR) non- Americanon 05-26-2024 GFR/1.73 sq M.predicted among non-blacks MDRD (S/P/Bld) [Vol rate/Area] 40 mL/min/{1.73_m2} Low >=60 [facility] Globulin Calc (S) [Mass/Vol] on 07-15-2024 Globulin (S) [Mass/Vol] 4.4 g/dL [facility] Hematocrit Auto (Bld) [Volum e fraction]on 05-26-2024 Hematocrit (Bld) [Volume fraction] 35.9 % Low 36.0-48.0 [facility] Hemoglobin [Mass/volume] in Bloodon 05-26-2024 Hemoglobin (Bld) [Mass/Vol] 12.0 g/dL 12.0-16.0 [facility] - Chemistry and C hemistry - challengeon 05-26-2024 Albumin [Mass/Vol] 2.7 g/dL Low 3.4-5.[address] [facility] ALP [Catalytic activity/Vol] 88 U/L 46-116 [facility] ALT [Catalytic activity/Vol] 20 U/L 14-59 [facility] AST [Catalytic activity/Vol] 12 U/L Low 15-37 [facility] Bilirubin [Mass/Vol] 0.5 mg/dL 0.2-1.0 [facility] Calcium [Mass/Vol] 8.9 mg/dL 8.5-10.[address] [facility] Chloride [Moles/Vol] 104 mmol/L 98-107 [facility] CO2 [Moles/Vol] 26.7 mmol/L 21.0-32.0 [facility] Creatinine [Mass/Vol] 1.29 mg/dL High 0.55-1.02 [facility] Free T4 [Mass/Vol] 1.19 ng/dL 0.76-1.[address] [facility] GFR/1.73 sq M.predicted MDRD (S/P/Bld) [Vol rate/Area] 49 mL/min/{1.73_m2} Low >=60 [facility] Glucose [Mass/Vol] 233 mg/dL High 74-[address] [facility] Natriuretic peptide B (Bld) [Mass/Vol] 2687.0 pg/mL High <=1800.0 [facility] Comment on above: RESULTS CALLED TO DR Miranda HENNING IN ER BY Mira Edwards [phone] Potassium [Moles/Vol] 4.0 mmol/L 3.5-5.1 [facility] Protein [Mass/Vol] 7.1 g/dL 6.4-8.[address] [facility] Sodium [Moles/Vol] 140 mmol/L 136-[address] [facility] TSH Qn 4.487 m[IU]/L High 0.358-3.740 [facility] Urea nitrogen [Mass/Vol] 33.0 mg/dL High 7.0-18.0 [facility] Urea nitrogen/Creatinine [Mass ratio] 25.6 mg/mg [facility] Laboratory - Hematology and Cell countson 05-26-2024 Immature granulocytes/100 WBC (Bld) 0.1 % 0.0-0.5 [facility] - Microbiology an d Antimicrobial susceptibilityon 05-26-2024 S. pyogenes Ag Ql (Unsp spec) Negative [facility] SARS-CoV-2 (COVID-19) RNA FERN+probe Ql (Unsp spec) Not detected NOT DETECTE [facility] Comment on above: THIS TEST IS NOT PEREZ ROVDED BY THE FDA. It has beenauthorized for use under an Emergency Use Authorization. SARS-CoV-2 (COVID-19) RNA FERN+probe Ql (Unsp spec) See comment NOT DETECTE [facility] Comment on above: COVID AG PERFORMED-- - 06/06/24 1120 ---SARS-CoV-2 FERN previously reported as: NOT DETECTEDTHIS TEST IS NOT APPROVDED BY THE FDA. It has beenauthorized for use under an Emergency Use Authorization. SARS-CoV-2 (COVID-19) RNA FERN+probe Ql (Unsp spec) Negative NEGATIVE [facility] Comment on above: This test has not be en FDA cleared or approved, but has beenauthorized by the FDA under an Emergency Use Authorization(EUA) for use by authorized laboratories certified underIA that meet the requirements to perform moderate or highcomplexity testing. This test has been authorized only forthe detection of proteins from SARS-CoV-2, not for any otherviruses or pathogens. The emergency use of this test isauthorized for the duration of the declaration thatcircumstances exist justifying the authorization ofemergency use of in vitro diagnostic tests for detectionand/or diagnosis of Covid-19 under section 564(b)(1) of the[facility], U.[place].C. 360bbb-3(b)(1), unless the declaration isterminated or authorization is revoked sooner. Leukocytes [#/volume] correc gali for nucleated erythrocytes in Blood by Automated counon 05-26-2024 WBC corrected for nucl RBC Auto (Bld) [#/Vol] 7.3 10 3/uL 4.0-11.0 [facility] Lymphocytes Auto (Bld) [#/Vo l]on 05-26-2024 Lymphocytes (Bld) [#/Vol] 1.3 10 3/uL 1.2-3.8 [facility] Lymphocytes/100 WBC Auto (Bl d)on 05-26-2024 Lymphocytes/100 WBC (Bld) 18.4 % Low 20.5-60.0 [facility] MCH Auto (RBC) [Entitic mass ]on 05-26-2024 MCH (RBC) [Entitic mass] 30.4 pg 26.7-34.0 [facility] MCHC Auto (RBC) [Mass/Vol]on 05-26-2024 MCHC (RBC) [Mass/Vol] 33.4 g/dL 29.9-35.2 [facility] MCV Auto (RBC) [Entitic vol] on 05-26-2024 MCV (RBC) [Entitic vol] 90.9 fL 81.0-99.0 [facility] Monocytes Auto (Bld) [#/Vol] on 05-26-2024 Monocytes (Bld) [#/Vol] 0.7 10 3/uL 0.3-0.8 [facility] Monocytes/100 WBC Auto (Bld) on 05-26-2024 Monocytes/100 WBC (Bld) 9.5 % 1.7-12.0 [facility] Neutrophils Auto (Bld) [#/Vo l]on 05-26-2024 Neutrophils (Bld) [#/Vol] 5.0 10 3/uL 1.4-6.5 [facility] Neutrophils/100 WBC Auto (Bl d)on 05-26-2024 Neutrophils/100 WBC (Bld) 68.8 % 43.0-75.0 [facility] No Panel Informationon 05-26 See comment NOT DETECTE [facility] Negative [facility] Eosinophils # (Auto) 0.2 10 3/uL 0.0-0.7 [facility] Immature Granulocyte # (Auto) 0.01 10 3/uL 0.00-0.03 [facility] Monoscreen Negative NEGATIVE [facility] Troponin I High Sensitivity 14.9 pg/mL 4.0-51.3 [facility] Comment on above: CUT-OFF POINTS HAVE [...] IN CONJUNCTIONWITH OTHER DIAGNOSTIC AND CLINICAL INFORMATION. 1.19 ng/dL 0.76-1.46 [facility] 2687.0 pg/mL High <=1800.0 [facility] 14.9 pg/mL 4.0-51.3 [facility] 4.487 u[iU]/mL High 0.358-3.740 [facility] Negative NEGATIVE [facility] 2.7 g/dL Low 3.4-5.0 [facility] 0.2 10 3/uL 0.0-0.7 [facility] 88 U/L 46-116 [facility] 20 U/L 14-59 [facility] 12 U/L Low 15-37 [facility] 25.6 [facility] 0.01 10 3/uL 0.00-0.03 [facility] 33.0 mg/dL High 7.0-18.0 [facility] 0.1 % 0.0-0.5 [facility] 8.9 mg/dL 8.5-10.1 [facility] 104 mmol/L 98-107 [facility] 26.7 mmol/L 21.0-32.0 [facility] 1.29 mg/dL High 0.55-1.02 [facility] 49 Low >=60 [facility] 233 mg/dL High 74-106 [facility] 4.0 mmol/L 3.5-5.1 [facility] 140 mmol/L 136-145 [facility] 0.5 mg/dL 0.2-1.0 [facility] 7.1 g/dL 6.4-8.2 [facility] Platelet mean volume Auto (B ld) [Entitic vol]on 05-26-2024 Platelet mean volume (Bld) [Entitic vol] 10.6 fL 9.5-13.5 [facility] Platelets Auto (Bld) [#/Vol] on 05-26-2024 Platelets (Bld) [#/Vol] 215 10 3/uL 150-450 [facility] RBC Auto (Bld) [#/Vol]on RBC (Bld) [#/Vol] 3.95 10 6/uL Low 4.20-5.40 [facility] Serum or plasma albumin/glob ulin mass ratioon 05-26-2024 Albumin/Globulin [Mass ratio] 0.6 {ratio} [facility] Serum or plasma anion gap de terminationon 05-26-2024 Anion gap [Moles/Vol] 13.3 mmol/L [facility] ECG 12 lead ECGon 05-22-2024 ECG 12 [place] [address] Electrocardiograph Report Signed Patient: Joe Call MR#: [id number] 0 : 1945 Acct:[id number] Age/Sex: 78 / F ADM Date: 05/22/24 Loc: ER Room: Type: [facility] ER Attending Dr: Ordering Provider: Jesus Barbour [...] Sinus bradycardia Confirmed by Daniele Jane DO ([id number]) on 05/22/2024 4:08:55 PM Referred By: Electronically Signed By: Daniele Jane DO Transcribed By: MUS Signed By Daniele Jane DO [id number] Normal [facility] 37on 05-20-2024 37 Have blood drawn/ labs to check kidney function and electrolytes this week. *Continue heart healthy diet and low sodium diet. *Monitor daily weights, fluid restriction 1.5-2Liters/day, lab work to check kidney/renal function and electrolytes *Call office for weight gain of 2 pounds in 1 day or 5 pounds in 1 week, increased leg swelling, shortness of breath or shortness of breath at night and having to sleep sitting up taller/more pillows than normal or in recliner. Normal [facility] Estimated glomerular filtrat ion rate (GFR) non- Americanon 05-20-2024 GFR/1.73 sq M.predicted among non-blacks MDRD (S/P/Bld) [Vol rate/Area] 39 mL/min/{1.73_m2} Low >=60 [facility] Laboratory - Chemistry and C hemistry - challengeon 05-20-2024 Calcium [Mass/Vol] 8.8 mg/dL 8.5-10.[address] [facility] Chloride [Moles/Vol] 103 mmol/L 98-107 [facility] CO2 [Moles/Vol] 24.3 mmol/L 21.0-32.0 [facility] Creatinine [Mass/Vol] 1.32 mg/dL High 0.55-1.02 [facility] GFR/1.73 sq M.predicted MDRD (S/P/Bld) [Vol rate/Area] 47 mL/min/{1.73_m2} Low >=60 [facility] Glucose [Mass/Vol] 243 mg/dL High 74-[address] [facility] Potassium [Moles/Vol] 5.0 mmol/L 3.5-5.1 [facility] Sodium [Moles/Vol] 138 mmol/L 136-[address] [facility] Urea nitrogen [Mass/Vol] 35.0 mg/dL High 7.0-18.0 [facility] Urea nitrogen/Creatinine [Mass ratio] 26.5 mg/mg [facility] No Panel Informationon 05-20 26.5 [facility] 35.0 mg/dL High 7.0-18.0 [facility] 8.8 mg/dL 8.5-10.1 [facility] 103 mmol/L 98-107 [facility] 24.3 mmol/L 21.0-32.0 [facility] 1.32 mg/dL High 0.55-1.02 [facility] 47 Low >=60 [facility] 243 mg/dL High 74-106 [facility] 5.0 mmol/L 3.5-5.1 [facility] 138 mmol/L 136-145 [facility] Office Visiton 05-20-2024 Follow-up visit [id number] Joe Call 1945 F Date Provider Department Center 05/20/2024 MICHELA CHAMBERLAIN Family History Problem Relation Age of Onset Coronary artery disease Other Diabetes Other Polycystic kidney disease Other Family Status - Relation Status Age at Other Level of Service:50888 UT OFFICE/OUTPATIENT ESTABLISHED MOD MDM 30 MIN Normal [facility] Serum or plasma anion gap de terminationon 05-20-2024 Anion gap [Moles/Vol] 15.7 mmol/L [facility] Basophils Auto (Bld) [#/Vol] on 05-06-2024 Basophils (Bld) [#/Vol] 0.1 10 3/uL 0.0-0.1 [facility] Basophils/100 WBC Auto (Bld) on 05-06-2024 Basophils/100 WBC (Bld) 0.9 % 0.2-2.0 [facility] Eosinophils/100 WBC Auto (Bl d)on 05-06-2024 Eosinophils/100 WBC (Bld) 2.7 % 0.9-7.0 [facility] Erythrocyte distribution wid th Auto (RBC) [Ratio]on 05-06-2024 Erythrocyte distribution width (RBC) [Ratio] 13.5 % 11.0-15.0 [facility] Estimated glomerular filtrat ion rate (GFR) non- Americanon 05-06-2024 GFR/1.73 sq M.predicted among non-blacks MDRD (S/P/Bld) [Vol rate/Area] 32 mL/min/{1.73_m2} Low >=60 [facility] Globulin Calc (S) [Mass/Vol] on 05-06-2024 Globulin (S) [Mass/Vol] 4.3 g/dL [facility] Hematocrit Auto (Bld) [Volum e fraction]on 05-06-2024 Hematocrit (Bld) [Volume fraction] 34.6 % Low 36.0-48.0 [facility] Hemoglobin [Mass/volume] in Bloodon 05-06-2024 Hemoglobin (Bld) [Mass/Vol] 11.1 g/dL Low 12.0-16.0 [facility] Laboratory - Chemistry and C hemistry - challengeon 05-06-2024 Albumin [Mass/Vol] 2.5 g/dL Low 3.4-5.[address] [facility] ALP [Catalytic activity/Vol] 75 U/L 46-116 [facility] ALT [Catalytic activity/Vol] 16 U/L 14-59 [facility] AST [Catalytic activity/Vol] 11 U/L Low 15-37 [facility] Bilirubin [Mass/Vol] 0.4 mg/dL 0.2-1.0 [facility] Calcium [Mass/Vol] 8.4 mg/dL Low 8.5-10.[address] [facility] Chloride [Moles/Vol] 107 mmol/L 98-107 [facility] CO2 [Moles/Vol] 25.7 mmol/L 21.0-32.0 [facility] Creatinine [Mass/Vol] 1.58 mg/dL High 0.55-1.02 [facility] GFR/1.73 sq M.predicted MDRD (S/P/Bld) [Vol rate/Area] 38 mL/min/{1.73_m2} Low >=60 [facility] Glucose [Mass/Vol] 146 mg/dL High 74-[address] [facility] Magnesium [Mass/Vol] 1.6 mg/dL Low 1.8-2.4 [facility] Natriuretic peptide B (Bld) [Mass/Vol] 2762.0 pg/mL High <=1800.0 [facility] Comment on above: RESULTS CALLED TO CLARITZA SELLERS RN @BY Alla Venegas at 0557 Potassium [Moles/Vol] 4.1 mmol/L 3.5-5.1 [facility] Protein [Mass/Vol] 6.8 g/dL 6.4-8.[address] [facility] Sodium [Moles/Vol] 141 mmol/L 136-[address] [facility] Urea nitrogen [Mass/Vol] 49.0 mg/dL High 7.0-18.0 [facility] Urea nitrogen/Creatinine [Mass ratio] 31.0 mg/mg [facility] Laboratory - Hematology and Cell countson 05-06-2024 Immature granulocytes/100 WBC (Bld) 0.1 % 0.0-0.5 [facility] Leukocytes [#/volume] correc gali for nucleated erythrocytes in Blood by Automated counon 05-06-2024 WBC corrected for nucl RBC Auto (Bld) [#/Vol] 6.7 10 3/uL 4.0-11.0 [facility] Lymphocytes Auto (Bld) [#/Vo l]on 05-06-2024 Lymphocytes (Bld) [#/Vol] 1.5 10 3/uL 1.2-3.8 [facility] Lymphocytes/100 WBC Auto (Bl d)on 05-06-2024 Lymphocytes/100 WBC (Bld) 21.8 % 20.5-60.0 [facility] MCH Auto (RBC) [Entitic mass ]on 05-06-2024 MCH (RBC) [Entitic mass] 29.0 pg 26.7-34.0 [facility] MCHC Auto (RBC) [Mass/Vol]on 05-06-2024 MCHC (RBC) [Mass/Vol] 32.1 g/dL 29.9-35.2 [facility] MCV Auto (RBC) [Entitic vol] on 05-06-2024 MCV (RBC) [Entitic vol] 90.3 fL 81.0-99.0 [facility] Monocytes Auto (Bld) [#/Vol] on 05-06-2024 Monocytes (Bld) [#/Vol] 0.7 10 3/uL 0.3-0.8 [facility] Monocytes/100 WBC Auto (Bld) on 05-06-2024 Monocytes/100 WBC (Bld) 10.6 % 1.7-12.0 [facility] Neutrophils Auto (Bld) [#/Vo l]on 05-06-2024 Neutrophils (Bld) [#/Vol] 4.3 10 3/uL 1.4-6.5 [facility] Neutrophils/100 WBC Auto (Bl d)on 05-06-2024 Neutrophils/100 WBC (Bld) 63.9 % 43.0-75.0 [facility] No Panel Informationon 05-06 Eosinophils # (Auto) 0.2 10 3/uL 0.0-0.7 [facility] Immature Granulocyte # (Auto) 0.01 10 3/uL 0.00-0.03 [facility] Troponin I High Sensitivity 13.2 pg/mL 4.0-51.3 [facility] Comment on above: CUT-OFF POINTS HAVE [...] IN CONJUNCTIONWITH OTHER DIAGNOSTIC AND CLINICAL INFORMATION. 2762.0 pg/mL High <=1800.0 [facility] 13.2 pg/mL 4.0-51.3 [facility] 1.6 mg/dL Low 1.8-2.4 [facility] 2.5 g/dL Low 3.4-5.0 [facility] 0.2 10 3/uL 0.0-0.7 [facility] 75 U/L 46-116 [facility] 16 U/L 14-59 [facility] 11 U/L Low 15-37 [facility] 31.0 [facility] 0.01 10 3/uL 0.00-0.03 [facility] 49.0 mg/dL High 7.0-18.0 [facility] 0.1 % 0.0-0.5 [facility] 8.4 mg/dL Low 8.5-10.1 [facility] 107 mmol/L 98-107 [facility] 25.7 mmol/L 21.0-32.0 [facility] 1.58 mg/dL High 0.55-1.02 [facility] 38 Low >=60 [facility] 146 mg/dL High 74-106 [facility] 4.1 mmol/L 3.5-5.1 [facility] 141 mmol/L 136-145 [facility] 0.4 mg/dL 0.2-1.0 [facility] 6.8 g/dL 6.4-8.2 [facility] Platelet mean volume Auto (B ld) [Entitic vol]on 05-06-2024 Platelet mean volume (Bld) [Entitic vol] 11.3 fL 9.5-13.5 [facility] Platelets Auto (Bld) [#/Vol] on 05-06-2024 Platelets (Bld) [#/Vol] 146 10 3/uL Low 150-450 [facility] RBC Auto (Bld) [#/Vol]on RBC (Bld) [#/Vol] 3.83 10 6/uL Low 4.20-5.40 [facility] Serum or plasma albumin/glob ulin mass ratioon 05-06-2024 Albumin/Globulin [Mass ratio] 0.6 {ratio} [facility] Serum or plasma anion gap de terminationon 05-06-2024 Anion gap [Moles/Vol] 12.4 mmol/L [facility] Basophils Auto (Bld) [#/Vol] on 05-05-2024 Basophils (Bld) [#/Vol] 0.1 10 3/uL 0.0-0.1 [facility] Basophils/100 WBC Auto (Bld) on 05-05-2024 Basophils/100 WBC (Bld) 0.9 % 0.2-2.0 [facility] Eosinophils/100 WBC Auto (Bl d)on 05-05-2024 Eosinophils/100 WBC (Bld) 1.9 % 0.9-7.0 [facility] Erythrocyte distribution wid th Auto (RBC) [Ratio]on 05-05-2024 Erythrocyte distribution width (RBC) [Ratio] 13.4 % 11.0-15.0 [facility] Estimated glomerular filtrat ion rate (GFR) non- Americanon 05-05-2024 GFR/1.73 sq M.predicted among non-blacks MDRD (S/P/Bld) [Vol rate/Area] 29 mL/min/{1.73_m2} Low >=60 [facility] Globulin Calc (S) [Mass/Vol] on 05-05-2024 Globulin (S) [Mass/Vol] 4.4 g/dL [facility] Hematocrit Auto (Bld) [Volum e fraction]on 05-05-2024 Hematocrit (Bld) [Volume fraction] 33.8 % Low 36.0-48.0 [facility] Hemoglobin [Mass/volume] in Bloodon 05-05-2024 Hemoglobin (Bld) [Mass/Vol] 11.1 g/dL Low 12.0-16.0 [facility] Laboratory - Chemistry and C hemistry - challengeon 05-05-2024 Albumin [Mass/Vol] 2.6 g/dL Low 3.4-5.[address] [facility] ALP [Catalytic activity/Vol] 74 U/L 46-116 [facility] ALT [Catalytic activity/Vol] 17 U/L 14-59 [facility] AST [Catalytic activity/Vol] 12 U/L Low 15-37 [facility] Bilirubin [Mass/Vol] 0.4 mg/dL 0.2-1.0 [facility] Calcium [Mass/Vol] 6.1 mg/dL Low 8.5-10.[address] [facility] Chloride [Moles/Vol] 105 mmol/L 98-107 [facility] CO2 [Moles/Vol] 24.1 mmol/L 21.0-32.0 [facility] Creatinine [Mass/Vol] 1.71 mg/dL High 0.55-1.02 [facility] GFR/1.73 sq M.predicted MDRD (S/P/Bld) [Vol rate/Area] 35 mL/min/{1.73_m2} Low >=60 [facility] Glucose [Mass/Vol] 202 mg/dL High 74-[address] [facility] Magnesium [Mass/Vol] 1.5 mg/dL Low 1.8-2.4 [facility] Natriuretic peptide B (Bld) [Mass/Vol] 2725.0 pg/mL High <=1800.0 [facility] Comment on above: RESULTS CALLED TO Frances Bryant (Austyn)@BY Franchesca Huynh MLT at 0547 Potassium [Moles/Vol] 5.9 mmol/L High 3.5-5.1 [facility] Protein [Mass/Vol] 7.0 g/dL 6.4-8.[address] [facility] Sodium [Moles/Vol] 139 mmol/L 136-[address] [facility] Urea nitrogen [Mass/Vol] 69.0 mg/dL High 7.0-18.0 [facility] Urea nitrogen/Creatinine [Mass ratio] 40.4 mg/mg [facility] Laboratory - Hematology and Cell countson 05-05-2024 Immature granulocytes/100 WBC (Bld) 0.3 % 0.0-0.5 [facility] Leukocytes [#/volume] correc gali for nucleated erythrocytes in Blood by Automated counon 05-05-2024 WBC corrected for nucl RBC Auto (Bld) [#/Vol] 6.9 10 3/uL 4.0-11.0 [facility] Lymphocytes Auto (Bld) [#/Vo l]on 05-05-2024 Lymphocytes (Bld) [#/Vol] 1.2 10 3/uL 1.2-3.8 [facility] Lymphocytes/100 WBC Auto (Bl d)on 05-05-2024 Lymphocytes/100 WBC (Bld) 18.0 % Low 20.5-60.0 [facility] MCH Auto (RBC) [Entitic mass ]on 05-05-2024 MCH (RBC) [Entitic mass] 29.3 pg 26.7-34.0 [facility] MCHC Auto (RBC) [Mass/Vol]on 05-05-2024 MCHC (RBC) [Mass/Vol] 32.8 g/dL 29.9-35.2 [facility] MCV Auto (RBC) [Entitic vol] on 05-05-2024 MCV (RBC) [Entitic vol] 89.2 fL 81.0-99.0 [facility] Monocytes Auto (Bld) [#/Vol] on 05-05-2024 Monocytes (Bld) [#/Vol] 0.6 10 3/uL 0.3-0.8 [facility] Monocytes/100 WBC Auto (Bld) on 05-05-2024 Monocytes/100 WBC (Bld) 8.7 % 1.7-12.0 [facility] Neutrophils Auto (Bld) [#/Vo l]on 05-05-2024 Neutrophils (Bld) [#/Vol] 4.8 10 3/uL 1.4-6.5 [facility] Neutrophils/100 WBC Auto (Bl d)on 05-05-2024 Neutrophils/100 WBC (Bld) 70.2 % 43.0-75.0 [facility] No Panel Informationon 05-05 Eosinophils # (Auto) 0.1 10 3/uL 0.0-0.7 [facility] Immature Granulocyte # (Auto) 0.02 10 3/uL 0.00-0.03 [facility] Troponin I High Sensitivity 14.0 pg/mL 4.0-51.3 [facility] Comment on above: CUT-OFF POINTS HAVE [...] IN CONJUNCTIONWITH OTHER DIAGNOSTIC AND CLINICAL INFORMATION. 2725.0 pg/mL High <=1800.0 [facility] 14.0 pg/mL 4.0-51.3 [facility] 1.5 mg/dL Low 1.8-2.4 [facility] 2.6 g/dL Low 3.4-5.0 [facility] 0.1 10 3/uL 0.0-0.7 [facility] 74 U/L 46-116 [facility] 17 U/L 14-59 [facility] 12 U/L Low 15-37 [facility] 40.4 [facility] 0.02 10 3/uL 0.00-0.03 [facility] 69.0 mg/dL High 7.0-18.0 [facility] 0.3 % 0.0-0.5 [facility] 6.1 mg/dL Low 8.5-10.1 [facility] 105 mmol/L 98-107 [facility] 24.1 mmol/L 21.0-32.0 [facility] 1.71 mg/dL High 0.55-1.02 [facility] 35 Low >=60 [facility] 202 mg/dL High 74-106 [facility] 5.9 mmol/L High 3.5-5.1 [facility] 139 mmol/L 136-145 [facility] 0.4 mg/dL 0.2-1.0 [facility] 7.0 g/dL 6.4-8.2 [facility] Platelet mean volume Auto (B ld) [Entitic vol]on 05-05-2024 Platelet mean volume (Bld) [Entitic vol] 11.8 fL 9.5-13.5 [facility] Platelets Auto (Bld) [#/Vol] on 05-05-2024 Platelets (Bld) [#/Vol] 173 10 3/uL 150-450 [facility] RBC Auto (Bld) [#/Vol]on RBC (Bld) [#/Vol] 3.79 10 6/uL Low 4.20-5.40 [facility] Serum or plasma albumin/glob ulin mass ratioon 05-05-2024 Albumin/Globulin [Mass ratio] 0.6 {ratio} [facility] Serum or plasma anion gap de terminationon 05-05-2024 Anion gap [Moles/Vol] 15.8 mmol/L Fi [facility] Basophils Auto (Bld) [#/Vol] on 05-04-2024 Basophils (Bld) [#/Vol] 0.1 10 3/uL 0.0-0.1 [facility] Basophils/100 WBC Auto (Bld) on 05-04-2024 Basophils/100 WBC (Bld) 0.9 % 0.2-2.0 [facility] Eosinophils/100 WBC Auto (Bl d)on 05-04-2024 Eosinophils/100 WBC (Bld) 1.7 % 0.9-7.0 [facility] Erythrocyte distribution wid th Auto (RBC) [Ratio]on 05-04-2024 Erythrocyte distribution width (RBC) [Ratio] 13.6 % 11.0-15.0 [facility] Estimated glomerular filtrat ion rate (GFR) non- Americanon 05-04-2024 GFR/1.73 sq M.predicted among non-blacks MDRD (S/P/Bld) [Vol rate/Area] 21 mL/min/{1.73_m2} Low >=60 [facility] Globulin Calc (S) [Mass/Vol] on 05-04-2024 Globulin (S) [Mass/Vol] 4.9 g/dL [facility] Hematocrit Auto (Bld) [Volum e fraction]on 05-04-2024 Hematocrit (Bld) [Volume fraction] 37.6 % 36.0-48.0 [facility] Hemoglobin [Mass/volume] in Bloodon 05-04-2024 Hemoglobin (Bld) [Mass/Vol] 12.0 g/dL 12.0-16.0 [facility] Laboratory - Chemistry and C hemistry - challengeon 05-04-2024 Bilirubin Ql (U) Negative NEGATIVE [facility] Glucose (U) [Mass/Vol] 250 mg/dL Abnormal NEGATIVE [facility] Ketones Ql (U) Negative NEGATIVE [facility] pH (U) 6.0 [pH] 5.0-9.0 [facility] Specific gravity (U) [Rel density] 1.015 1.005-1.025 [facility] Urobilinogen Qn (U) 0.2 {Meka'U}/dL 0.2-1.0 [facility] Albumin [Mass/Vol] 2.8 g/dL Low 3.4-5.[address] [facility] ALP [Catalytic activity/Vol] 86 U/L 46-116 [facility] ALT [Catalytic activity/Vol] 16 U/L 14-59 [facility] Ammonia (P) [Moles/Vol] 12 umol/L 11-32 [facility] AST [Catalytic activity/Vol] 8 U/L Low 15-37 [facility] Bilirubin [Mass/Vol] 0.4 mg/dL 0.2-1.0 [facility] Calcium [Mass/Vol] 8.8 mg/dL 8.5-10.[address] [facility] Chloride [Moles/Vol] 101 mmol/L 98-107 [facility] CO2 [Moles/Vol] 22.4 mmol/L 21.0-32.0 [facility] Creatinine [Mass/Vol] 2.24 mg/dL High 0.55-1.02 [facility] GFR/1.73 sq M.predicted MDRD (S/P/Bld) [Vol rate/Area] 26 mL/min/{1.73_m2} Low >=60 [facility] Glucose [Mass/Vol] 369 mg/dL High 74-[address] [facility] Lactate [Moles/Vol] 1.2 mmol/L 0.4-2.0 [facility] Magnesium [Mass/Vol] 1.7 mg/dL Low 1.8-2.4 [facility] Natriuretic peptide B (Bld) [Mass/Vol] 2342.0 pg/mL High <=1800.0 [facility] Comment on above: RESULTS CALLED TO RENETTA Renteria,RN @BY Andrea Long, MLTat 1126 Potassium [Moles/Vol] 5.6 mmol/L High 3.5-5.1 [facility] Protein [Mass/Vol] 7.7 g/dL 6.4-8.[address] [facility] Sodium [Moles/Vol] 134 mmol/L Low 136-[address] [facility] T4 [Mass/Vol] 11.80 ug/dL 4.80-13.90 [facility] TSH Qn 0.933 m[IU]/L 0.358-3.740 [facility] Urea nitrogen [Mass/Vol] 86.0 mg/dL High 7.0-18.0 [facility] Comment on above: RESULTS CALLED TO ER Rebecca RenteriaRN @BY Andrea Long, MLTat 1126 Urea nitrogen/Creatinine [Mass ratio] 38.4 mg/mg [facility] Laboratory - Hematology and Cell countson 05-04-2024 Immature granulocytes/100 WBC (Bld) 0.3 % 0.0-0.5 [facility] - Microbiology an d Antimicrobial susceptibilityOrdered By: Carl Morales on 05-04-2024 Bacteria identified Cx Nom (U) [facility] - Specimen inform ationon 05-04-2024 Appearance (U) SLIGHTLY CLOUDY Abnormal CLEAR [facility] Color (U) YELLOW YELLOW [facility] - Urinalysison Hyaline casts LM Ql (Urine sed) RARE [facility] Leukocyte esterase Test strip Ql (U) Negative NEGATIVE [facility] Mucus Ql (Urine sed) NONE SEEN NONE SEEN [facility] Nitrite Ql (U) Negative NEGATIVE [facility] Protein Ql (U) 100 mg/dL Abnormal NEG/TRACE [facility] Leukocytes [#/volume] correc gali for nucleated erythrocytes in Blood by Automated counon 05-04-2024 WBC corrected for nucl RBC Auto (Bld) [#/Vol] 6.9 10 3/uL 4.0-11.0 [facility] Lymphocytes Auto (Bld) [#/Vo l]on 05-04-2024 Lymphocytes (Bld) [#/Vol] 1.2 10 3/uL 1.2-3.8 [facility] Lymphocytes/100 WBC Auto (Bl d)on 05-04-2024 Lymphocytes/100 WBC (Bld) 17.8 % Low 20.5-60.0 [facility] MCH Auto (RBC) [Entitic mass ]on 05-04-2024 MCH (RBC) [Entitic mass] 29.3 pg 26.7-34.0 [facility] MCHC Auto (RBC) [Mass/Vol]on 05-04-2024 MCHC (RBC) [Mass/Vol] 31.9 g/dL 29.9-35.2 [facility] MCV Auto (RBC) [Entitic vol] on 05-04-2024 MCV (RBC) [Entitic vol] 91.9 fL 81.0-99.0 [facility] Monocytes Auto (Bld) [#/Vol] on 05-04-2024 Monocytes (Bld) [#/Vol] 0.7 10 3/uL 0.3-0.8 [facility] Monocytes/100 WBC Auto (Bld) on 05-04-2024 Monocytes/100 WBC (Bld) 10.4 % 1.7-12.0 [facility] Neutrophils Auto (Bld) [#/Vo l]on 05-04-2024 Neutrophils (Bld) [#/Vol] 4.8 10 3/uL 1.4-6.5 [facility] Neutrophils/100 WBC Auto (Bl d)on 05-04-2024 Neutrophils/100 WBC (Bld) 68.9 % 43.0-75.0 [facility] No Panel Informationon 05-04 Acetone Level Negative NEGATIVE [facility] Negative NEGATIVE [facility] Urine Bacteria MODERATE #/HPF Abnormal NONE SEEN [facility] Urine Culture Reflexed ALREADY ORDERED [facility] Urine Microscopic Review YES [facility] Urine Occult Blood MODERATE Abnormal NEGATIVE [facility] Urine Other Casts SEEN #/LPF Abnormal NONE SEEN [facility] Urine Other Crystals None Seen #/HPF None Seen [facility] Urine RBC 2-5 #/HPF Abnormal 0-2 [facility] Urine Squamous Epithelial Cells FEW #/LPF Abnormal NONE/RARE [facility] Urine WBC 2-5 #/HPF Abnormal NONE SEEN [facility] ALREADY ORDERED [facility] YES [facility] SEEN #/LPF Abnormal NONE SEEN [facility] Negative NEGATIVE [facility] None Seen #/HPF None Seen [facility] MODERATE Abnormal NEGATIVE [facility] MODERATE #/HPF Abnormal NONE SEEN [facility] SLIGHTLY CLOUDY Abnormal CLEAR [facility] RARE [facility] YELLOW YELLOW [facility] NONE SEEN NONE SEEN [facility] 250 mg/dL Abnormal NEGATIVE [facility] 2-5 #/HPF Abnormal NONE SEEN [facility] FEW #/LPF Abnormal NONE/RARE [facility] 6.0 5.0-9.0 [facility] [facility] 100 [facility]/dL Abnormal NEG/TRACE [facility] 1.015 1.005-1.025 [facility] 0.2 EU/dL 0.2-1.0 [facility] Eosinophils # (Auto) 0.1 10 3/uL 0.0-0.7 [facility] Immature Granulocyte # (Auto) 0.02 10 3/uL 0.00-0.03 [facility] Troponin I High Sensitivity 10.5 pg/mL 4.0-51.3 [facility] Comment on above: CUT-OFF POINTS HAVE [...] Partial Pressure CO2 38.5 mm[Hg] Low 40.0-52.0 [facility] Venous Blood pH 7.353 7.330-7.430 [facility] 0.933 u[iU]/mL 0.358-3.740 [facility] 11.80 ug/dL 4.80-13.90 [facility] 1.7 mg/dL Low 1.8-2.4 [facility] 2342.0 pg/mL High <=1800.0 [facility] 1.2 mmol/L 0.4-2.0 [facility] 10.5 pg/mL 4.0-51.3 [facility] 12 umol/L 11-32 [facility] 38.5 mm[Hg] Low 40.0-52.0 [facility] 7.353 7.330-7.430 [facility] 2.8 g/dL Low 3.4-5.0 [facility] 0.1 10 3/uL 0.0-0.7 [facility] 86 U/L 46-116 [facility] 16 U/L 14-59 [facility] 8 U/L Low 15-37 [facility] 38.4 [facility] 0.02 10 3/uL 0.00-0.03 [facility] 86.0 mg/dL High 7.0-18.0 [facility] 0.3 % 0.0-0.5 [facility] 8.8 mg/dL 8.5-10.1 [facility] 101 mmol/L 98-107 [facility] 22.4 mmol/L 21.0-32.0 [facility] 2.24 mg/dL High 0.55-1.02 [facility] 26 Low >=60 [facility] 369 mg/dL High 74-106 [facility] 5.6 mmol/L High 3.5-5.1 [facility] 134 mmol/L Low 136-145 [facility] 0.4 mg/dL 0.2-1.0 [facility] 7.7 g/dL 6.4-8.2 [facility] No Panel InformationOrdered By: LAMINE SINGH on 05-04-2024 Blood Culture 1 [facility] Platelet mean volume Auto (B ld) [Entitic vol]on 05-04-2024 Platelet mean volume (Bld) [Entitic vol] 11.4 fL 9.5-13.5 [facility] Platelets Auto (Bld) [#/Vol] on 05-04-2024 Platelets (Bld) [#/Vol] 160 10 3/uL 150-450 [facility] RBC Auto (Bld) [#/Vol]on RBC (Bld) [#/Vol] 4.09 10 6/uL Low 4.20-5.40 [facility] Serum or plasma albumin/glob ulin mass ratioon 05-04-2024 Albumin/Globulin [Mass ratio] 0.6 {ratio} [facility] Serum or plasma anion gap de terminationon 05-04-2024 Anion gap [Moles/Vol] 16.2 [facility] Bas[facility] Auto (Bld) [#/Vol] on 05-01-2024 Basophils (Bld) [#/Vol] 0.1 10 3/uL 0.0-0.1 [facility] Basophils/100 WBC Auto (Bld) on 05-01-2024 Basophils/100 WBC (Bld) 0.7 % 0.2-2.0 [facility] Eosinophils/100 WBC Auto (Bl d)on 05-01-2024 Eosinophils/100 WBC (Bld) 2.3 % 0.9-7.0 [facility] Erythrocyte distribution wid th Auto (RBC) [Ratio]on 05-01-2024 Erythrocyte distribution width (RBC) [Ratio] 13.6 % 11.0-15.0 [facility] Estimated glomerular filtrat ion rate (GFR) non- Americanon 05-01-2024 GFR/1.73 sq M.predicted among non-blacks MDRD (S/P/Bld) [Vol rate/Area] 22 mL/min/{1.73_m2} Low >=60 [facility] Globulin Calc (S) [Mass/Vol] on 05-01-2024 Globulin (S) [Mass/Vol] 4.4 g/dL [facility] Hematocrit Auto (Bld) [Volum e fraction]on 05-01-2024 Hematocrit (Bld) [Volume fraction] 37.5 % 36.0-48.0 [facility] Hemoglobin [Mass/volume] in Bloodon 05-01-2024 Hemoglobin (Bld) [Mass/Vol] 12.1 g/dL 12.0-16.0 [facility] Laboratory - Chemistry and C hemistry - challengeon 05-01-2024 Calcium [Mass/Vol] 9.2 mg/dL 8.5-10.[address] [facility] Chloride [Moles/Vol] 104 mmol/L 98-107 [facility] CO2 [Moles/Vol] 23.2 mmol/L 21.0-32.0 [facility] Creatinine [Mass/Vol] 2.14 mg/dL High 0.55-1.02 [facility] GFR/1.73 sq M.predicted MDRD (S/P/Bld) [Vol rate/Area] 27 mL/min/{1.73_m2} Low >=60 [facility] Glucose [Mass/Vol] 220 mg/dL High 74-[address] [facility] Potassium [Moles/Vol] 5.3 mmol/L High 3.5-5.1 [facility] Sodium [Moles/Vol] 134 mmol/L Low 136-[address] [facility] Urea nitrogen [Mass/Vol] 87.0 mg/dL High 7.0-18.0 [facility] Comment on above: RESULTS CALLED TO Klaus Michaels RN @BY Sury French [id number] Urea nitrogen/Creatinine [Mass ratio] 40.7 mg/mg [facility] Albumin [Mass/Vol] 2.8 g/dL Low 3.4-5.[address] [facility] ALP [Catalytic activity/Vol] 80 U/L 46-116 [facility] ALT [Catalytic activity/Vol] 16 U/L 14-59 [facility] AST [Catalytic activity/Vol] 11 U/L Low 15-37 [facility] Bilirubin [Mass/Vol] 0.4 mg/dL 0.2-1.0 [facility] Natriuretic peptide B (Bld) [Mass/Vol] 1624.0 pg/mL <=1800.0 [facility] Protein [Mass/Vol] 7.2 g/dL 6.4-8.[address] [facility] Laboratory - Hematology and Cell countson 05-01-2024 Immature granulocytes/100 WBC (Bld) 0.1 % 0.0-0.5 [facility] Leukocytes [#/volume] correc gali for nucleated erythrocytes in Blood by Automated counon 05-01-2024 WBC corrected for nucl RBC Auto (Bld) [#/Vol] 7.4 10 3/uL 4.0-11.0 [facility] Lymphocytes Auto (Bld) [#/Vo l]on 05-01-2024 Lymphocytes (Bld) [#/Vol] 2.2 10 3/uL 1.2-3.8 [facility] Lymphocytes/100 WBC Auto (Bl d)on 05-01-2024 Lymphocytes/100 WBC (Bld) 29.4 % 20.5-60.0 [facility] MCH Auto (RBC) [Entitic mass ]on 05-01-2024 MCH (RBC) [Entitic mass] 29.2 pg 26.7-34.0 [facility] MCHC Auto (RBC) [Mass/Vol]on 05-01-2024 MCHC (RBC) [Mass/Vol] 32.3 g/dL 29.9-35.2 [facility] MCV Auto (RBC) [Entitic vol] on 05-01-2024 MCV (RBC) [Entitic vol] 90.4 fL 81.0-99.0 [facility] Monocytes Auto (Bld) [#/Vol] on 05-01-2024 Monocytes (Bld) [#/Vol] 0.9 10 3/uL High 0.3-0.8 [facility] Monocytes/100 WBC Auto (Bld) on 05-01-2024 Monocytes/100 WBC (Bld) 11.5 % 1.7-12.0 [facility] Neutrophils Auto (Bld) [#/Vo l]on 05-01-2024 Neutrophils (Bld) [#/Vol] 4.1 10 3/uL 1.4-6.5 [facility] Neutrophils/100 WBC Auto (Bl d)on 05-01-2024 Neutrophils/100 WBC (Bld) 56.0 % 43.0-75.0 [facility] No Panel Informationon 05-01 40.7 [facility] 87.0 mg/dL High 7.0-18.0 [facility] 9.2 mg/dL 8.5-10.1 [facility] 104 mmol/L 98-107 [facility] 23.2 mmol/L 21.0-32.0 [facility] 2.14 mg/dL High 0.55-1.02 [facility] 27 Low >=60 [facility] 220 mg/dL High 74-106 [facility] 5.3 mmol/L High 3.5-5.1 [facility] 134 mmol/L Low 136-145 [facility] Eosinophils # (Auto) 0.2 10 3/uL 0.0-0.7 [facility] Immature Granulocyte # (Auto) 0.01 10 3/uL 0.00-0.03 [facility] 1624.0 pg/mL <=1800.0 [facility] 2.8 g/dL Low 3.4-5.0 [facility] 0.2 10 3/uL 0.0-0.7 [facility] 80 U/L 46-116 [facility] 16 U/L 14-59 [facility] 11 U/L Low 15-37 [facility] 0.01 10 3/uL 0.00-0.03 [facility] 0.1 % 0.0-0.5 [facility] 0.4 mg/dL 0.2-1.0 [facility] 7.2 g/dL 6.4-8.2 [facility] Platelet mean volume Auto (B ld) [Entitic vol]on 05-01-2024 Platelet mean volume (Bld) [Entitic vol] 11.6 fL 9.5-13.5 [facility] Platelets Auto (Bld) [#/Vol] on 05-01-2024 Platelets (Bld) [#/Vol] 151 10 3/uL 150-450 [facility] RBC Auto (Bld) [#/Vol]on RBC (Bld) [#/Vol] 4.15 10 6/uL Low 4.20-5.40 [facility] Serum or plasma albumin/glob ulin mass ratioon 05-01-2024 Albumin/Globulin [Mass ratio] 0.6 {ratio} [facility] Serum or plasma anion gap de terminationon 05-01-2024 Anion gap [Moles/Vol] 12.1 mmol/L [facility] Basophils Auto (Bld) [#/Vol] on 04-30-2024 Basophils (Bld) [#/Vol] 0.1 10 3/uL 0.0-0.1 [facility] Basophils/100 WBC Auto (Bld) on 04-30-2024 Basophils/100 WBC (Bld) 0.9 % 0.2-2.0 [facility] Eosinophils/100 WBC Auto (Bl d)on 04-30-2024 Eosinophils/100 WBC (Bld) 2.4 % 0.9-7.0 [facility] Erythrocyte distribution wid th Auto (RBC) [Ratio]on 04-30-2024 Erythrocyte distribution width (RBC) [Ratio] 13.5 % 11.0-15.0 [facility] Estimated glomerular filtrat ion rate (GFR) non- Americanon 04-30-2024 GFR/1.73 sq M.predicted among non-blacks MDRD (S/P/Bld) [Vol rate/Area] 15 mL/min/{1.73_m2} Low >=60 [facility] Fibrin D-dimer [Presence] in Platelet poor plasma by Latex agglutinationon 04-30-2024 Fibrin D-dimer LA Ql (PPP) 0.24 mg/L FEU <=0.59 [facility] Comment on above: Increases in D-Dimer [...] Hematocrit (Bld) [Volume fraction] 38.6 % 36.0-48.0 [facility] Hemoglobin [Mass/volume] in Bloodon 04-30-2024 Hemoglobin (Bld) [Mass/Vol] 12.5 g/dL 12.0-16.0 [facility] Laboratory - Chemistry and C hemistry - challengeon 04-30-2024 Calcium [Mass/Vol] 9.0 mg/dL 8.5-10.[address] [facility] Chloride [Moles/Vol] 100 mmol/L 98-107 [facility] CO2 [Moles/Vol] 24.4 mmol/L 21.0-32.0 [facility] Creatinine [Mass/Vol] 3.02 mg/dL High 0.55-1.02 [facility] GFR/1.73 sq M.predicted MDRD (S/P/Bld) [Vol rate/Area] 18 mL/min/{1.73_m2} Low >=60 [facility] Glucose [Mass/Vol] 271 mg/dL High 74-[address] [facility] Magnesium [Mass/Vol] 1.8 mg/dL 1.8-2.4 [facility] Natriuretic peptide B (Bld) [Mass/Vol] 1485.0 pg/mL <=1800.0 [facility] Potassium [Moles/Vol] 5.3 mmol/L High 3.5-5.1 [facility] Sodium [Moles/Vol] 133 mmol/L Low 136-[address] [facility] Urea nitrogen [Mass/Vol] 99.0 mg/dL High 7.0-18.0 [facility] Comment on above: RESULTS CALLED TO Yoel Robin (REY)@BY Franchesca Huynh MLT at [phone] Urea nitrogen/Creatinine [Mass ratio] 32.8 mg/mg [facility] Laboratory - Hematology and Cell countson 04-30-2024 Immature granulocytes/100 WBC (Bld) 0.1 % 0.0-0.5 [facility] Leukocytes [#/volume] correc gali for nucleated erythrocytes in Blood by Automated counon 04-30-2024 WBC corrected for nucl RBC Auto (Bld) [#/Vol] 7.5 10 3/uL 4.0-11.0 [facility] Lymphocytes Auto (Bld) [#/Vo l]on 04-30-2024 Lymphocytes (Bld) [#/Vol] 2.1 10 3/uL 1.2-3.8 [facility] Lymphocytes/100 WBC Auto (Bl d)on 04-30-2024 Lymphocytes/100 WBC (Bld) 27.8 % 20.5-60.0 [facility] MCH Auto (RBC) [Entitic mass ]on 04-30-2024 MCH (RBC) [Entitic mass] 29.6 pg 26.7-34.0 [facility] MCHC Auto (RBC) [Mass/Vol]on 04-30-2024 MCHC (RBC) [Mass/Vol] 32.4 g/dL 29.9-35.2 [facility] MCV Auto (RBC) [Entitic vol] on 04-30-2024 MCV (RBC) [Entitic vol] 91.5 fL 81.0-99.0 [facility] Monocytes Auto (Bld) [#/Vol] on 04-30-2024 Monocytes (Bld) [#/Vol] 0.8 10 3/uL 0.3-0.8 [facility] Monocytes/100 WBC Auto (Bld) on 04-30-2024 Monocytes/100 WBC (Bld) 10.0 % 1.7-12.0 [facility] Neutrophils Auto (Bld) [#/Vo l]on 04-30-2024 Neutrophils (Bld) [#/Vol] 4.4 10 3/uL 1.4-6.5 [facility] Neutrophils/100 WBC Auto (Bl d)on 04-30-2024 Neutrophils/100 WBC (Bld) 58.8 % 43.0-75.0 [facility] No Panel Informationon 04-30 Troponin I High Sensitivity 12.6 pg/mL 4.0-51.3 [facility] Comment on above: CUT-OFF POINTS HAVE [...] IN CONJUNCTIONWITH OTHER DIAGNOSTIC AND CLINICAL INFORMATION. 1.8 mg/dL 1.8-2.4 [facility] 1485.0 pg/mL <=1800.0 [facility] 12.6 pg/mL 4.0-51.3 [facility] 32.8 [facility] 99.0 mg/dL High 7.0-18.0 [facility] 9.0 mg/dL 8.5-10.1 [facility] 100 mmol/L 98-107 [facility] 24.4 mmol/L 21.0-32.0 [facility] 3.02 mg/dL High 0.55-1.02 [facility] 18 Low >=60 [facility] 271 mg/dL High 74-106 [facility] 5.3 mmol/L High 3.5-5.1 [facility] 133 mmol/L Low 136-145 [facility] Eosinophils # (Auto) 0.2 10 3/uL 0.0-0.7 [facility] Immature Granulocyte # (Auto) 0.01 10 3/uL 0.00-0.03 [facility] 0.2 10 3/uL 0.0-0.7 [facility] 0.01 10 3/uL 0.00-0.03 [facility] 0.1 % 0.0-0.5 [facility] Platelet mean volume Auto (B ld) [Entitic vol]on 04-30-2024 Platelet mean volume (Bld) [Entitic vol] 12.2 fL 9.5-13.5 [facility] Platelets Auto (Bld) [#/Vol] on 04-30-2024 Platelets (Bld) [#/Vol] 221 10 3/uL 150-450 [facility] RBC Auto (Bld) [#/Vol]on RBC (Bld) [#/Vol] 4.22 10 6/uL 4.20-5.40 [facility] Serum or plasma anion gap de terminationon 04-30-2024 Anion gap [Moles/Vol] 13.9 mmol/L [facility] Basophils Auto (Bld) [#/Vol] on 03-28-2024 Basophils (Bld) [#/Vol] 0.1 10 3/uL 0.0-0.1 [facility] Basophils/100 WBC Auto (Bld) on 03-28-2024 Basophils/100 WBC (Bld) 0.9 % 0.2-2.0 [facility] Eosinophils/100 WBC Auto (Bl d)on 03-28-2024 Eosinophils/100 WBC (Bld) 1.7 % 0.9-7.0 [facility] Erythrocyte distribution wid th Auto (RBC) [Ratio]on 03-28-2024 Erythrocyte distribution width (RBC) [Ratio] 14.2 % 11.0-15.0 [facility] Estimated glomerular filtrat ion rate (GFR) non- Americanon 03-28-2024 GFR/1.73 sq M.predicted among non-blacks MDRD (S/P/Bld) [Vol rate/Area] 39 mL/min/{1.73_m2} Low >=60 [facility] Globulin Calc (S) [Mass/Vol] on 03-28-2024 Globulin (S) [Mass/Vol] 4.8 g/dL [facility] Hematocrit Auto (Bld) [Volum e fraction]on 03-28-2024 Hematocrit (Bld) [Volume fraction] 40.0 % 36.0-48.0 [facility] Hemoglobin [Mass/volume] in Bloodon 03-28-2024 Hemoglobin (Bld) [Mass/Vol] 12.6 g/dL 12.0-16.0 [facility] Laboratory - Chemistry and C hemistry - challengeon 03-28-2024 Albumin [Mass/Vol] 2.5 g/dL Low 3.4-5.[address] [facility] ALP [Catalytic activity/Vol] 93 U/L 46-116 [facility] ALT [Catalytic activity/Vol] 9 U/L Low 14-59 [facility] AST [Catalytic activity/Vol] 10 U/L Low 15-37 [facility] Bilirubin [Mass/Vol] 0.9 mg/dL 0.2-1.0 [facility] Calcium [Mass/Vol] 8.5 mg/dL 8.5-10.[address] [facility] Chloride [Moles/Vol] 96 mmol/L Low 98-107 [facility] CO2 [Moles/Vol] 27.1 mmol/L 21.0-32.0 [facility] Creatinine [Mass/Vol] 1.33 mg/dL High 0.55-1.02 [facility] GFR/1.73 sq M.predicted MDRD (S/P/Bld) [Vol rate/Area] 47 mL/min/{1.73_m2} Low >=60 [facility] Glucose [Mass/Vol] 261 mg/dL High 74-[address] [facility] Magnesium [Mass/Vol] 1.8 mg/dL 1.8-2.4 [facility] Natriuretic peptide B (Bld) [Mass/Vol] 3338.0 pg/mL High <=1800.0 [facility] Comment on above: RESULTS CALLED TO Claritza ButtsRN)@BY Franchesca Huynh MLT at [phone] Potassium [Moles/Vol] 3.8 mmol/L 3.5-5.1 [facility] Protein [Mass/Vol] 7.3 g/dL 6.4-8.[address] [facility] Sodium [Moles/Vol] 133 mmol/L Low 136-[address] [facility] Urea nitrogen [Mass/Vol] 36.0 mg/dL High 7.0-18.0 [facility] Urea nitrogen/Creatinine [Mass ratio] 27.1 mg/mg [facility] Laboratory - Hematology and Cell countson 03-28-2024 Immature granulocytes/100 WBC (Bld) 0.4 % 0.0-0.5 [facility] Leukocytes [#/volume] correc gali for nucleated erythrocytes in Blood by Automated counon 03-28-2024 WBC corrected for nucl RBC Auto (Bld) [#/Vol] 8.4 10 3/uL 4.0-11.0 [facility] Lymphocytes Auto (Bld) [#/Vo l]on 03-28-2024 Lymphocytes (Bld) [#/Vol] 1.8 10 3/uL 1.2-3.8 [facility] Lymphocytes/100 WBC Auto (Bl d)on 03-28-2024 Lymphocytes/100 WBC (Bld) 21.4 % 20.5-60.0 [facility] MCH Auto (RBC) [Entitic mass ]on 03-28-2024 MCH (RBC) [Entitic mass] 29.0 pg 26.7-34.0 [facility] MCHC Auto (RBC) [Mass/Vol]on 03-28-2024 MCHC (RBC) [Mass/Vol] 31.5 g/dL 29.9-35.2 [facility] MCV Auto (RBC) [Entitic vol] on 03-28-2024 MCV (RBC) [Entitic vol] 92.0 fL 81.0-99.0 [facility] Monocytes Auto (Bld) [#/Vol] on 03-28-2024 Monocytes (Bld) [#/Vol] 0.8 10 3/uL 0.3-0.8 [facility] Monocytes/100 WBC Auto (Bld) on 03-28-2024 Monocytes/100 WBC (Bld) 9.7 % 1.7-12.0 [facility] Neutrophils Auto (Bld) [#/Vo l]on 03-28-2024 Neutrophils (Bld) [#/Vol] 5.6 10 3/uL 1.4-6.5 [facility] Neutrophils/100 WBC Auto (Bl d)on 03-28-2024 Neutrophils/100 WBC (Bld) 65.9 % 43.0-75.0 [facility] No Panel Informationon 03-28 Eosinophils # (Auto) 0.1 10 3/uL 0.0-0.7 [facility] Immature Granulocyte # (Auto) 0.03 10 3/uL 0.00-0.03 [facility] 3338.0 pg/mL High <=1800.0 [facility] 1.8 mg/dL 1.8-2.4 [facility] 2.5 g/dL Low 3.4-5.0 [facility] 0.1 10 3/uL 0.0-0.7 [facility] 93 U/L 46-116 [facility] 9 U/L Low 14-59 [facility] 10 U/L Low 15-37 [facility] 27.1 [facility] 0.03 10 3/uL 0.00-0.03 [facility] 36.0 mg/dL High 7.0-18.0 [facility] 0.4 % 0.0-0.5 [facility] 8.5 mg/dL 8.5-10.1 [facility] 96 mmol/L Low 98-107 [facility] 27.1 mmol/L 21.0-32.0 [facility] 1.33 mg/dL High 0.55-1.02 [facility] 47 Low >=60 [facility] 261 mg/dL High 74-106 [facility] 3.8 mmol/L 3.5-5.1 [facility] 133 mmol/L Low 136-145 [facility] 0.9 mg/dL 0.2-1.0 [facility] 7.3 g/dL 6.4-8.2 [facility] Platelet mean volume Auto (B ld) [Entitic vol]on 03-28-2024 Platelet mean volume (Bld) [Entitic vol] 10.5 fL 9.5-13.5 [facility] Platelets Auto (Bld) [#/Vol] on 03-28-2024 Platelets (Bld) [#/Vol] 197 10 3/uL 150-450 [facility] RBC Auto (Bld) [#/Vol]on RBC (Bld) [#/Vol] 4.35 10 6/uL 4.20-5.40 [facility] Serum or plasma albumin/glob ulin mass ratioon 03-28-2024 Albumin/Globulin [Mass ratio] 0.5 {ratio} [facility] Serum or plasma anion gap de terminationon 03-28-2024 Anion gap [Moles/Vol] 13.7 mmol/L Fi [facility] Basophils Auto (Bld) [#/Vol] on 03-27-2024 Basophils (Bld) [#/Vol] 0.1 10 3/uL 0.0-0.1 [facility] Basophils/100 WBC Auto (Bld) on 03-27-2024 Basophils/100 WBC (Bld) 0.8 % 0.2-2.0 [facility] Eosinophils/100 WBC Auto (Bl d)on 03-27-2024 Eosinophils/100 WBC (Bld) 1.1 % 0.9-7.0 [facility] Erythrocyte distribution wid th Auto (RBC) [Ratio]on 03-27-2024 Erythrocyte distribution width (RBC) [Ratio] 14.2 % 11.0-15.0 [facility] Estimated glomerular filtrat ion rate (GFR) non- Americanon 03-27-2024 GFR/1.73 sq M.predicted among non-blacks MDRD (S/P/Bld) [Vol rate/Area] 44 mL/min/{1.73_m2} Low >=60 [facility] Globulin Calc (S) [Mass/Vol] on 03-27-2024 Globulin (S) [Mass/Vol] 4.6 g/dL [facility] Glucose mean value [Mass/vol ume] in Blood Estimated from glycated hemoglobinon 03-27-2024 Average glucose Estimated from glycated hemoglobin (Bld) [Mass/Vol] 275 mg/dL [facility] Hematocrit Auto (Bld) [Volum e fraction]on 03-27-2024 Hematocrit (Bld) [Volume fraction] 37.4 % 36.0-48.0 [facility] Hemoglobin [Mass/volume] in Bloodon 03-27-2024 Hemoglobin (Bld) [Mass/Vol] 12.1 g/dL 12.0-16.0 [facility] Laboratory - Chemistry and C hemistry - challengeon 03-27-2024 Albumin [Mass/Vol] 2.6 g/dL Low 3.4-5.[address] [facility] ALP [Catalytic activity/Vol] 89 U/L 46-116 [facility] ALT [Catalytic activity/Vol] 12 U/L Low 14-59 [facility] AST [Catalytic activity/Vol] 9 U/L Low 15-37 [facility] Bilirubin [Mass/Vol] 0.9 mg/dL 0.2-1.0 [facility] Calcium [Mass/Vol] 9.1 mg/dL 8.5-10.[address] [facility] Chloride [Moles/Vol] 99 mmol/L 98-107 [facility] CO2 [Moles/Vol] 28.8 mmol/L 21.0-32.0 [facility] Creatinine [Mass/Vol] 1.19 mg/dL High 0.55-1.02 [facility] GFR/1.73 sq M.predicted MDRD (S/P/Bld) [Vol rate/Area] 53 mL/min/{1.73_m2} Low >=60 [facility] Glucose [Mass/Vol] 273 mg/dL High 74-[address] [facility] Magnesium [Mass/Vol] 1.7 mg/dL Low 1.8-2.4 [facility] Natriuretic peptide B (Bld) [Mass/Vol] 4572.0 pg/mL High <=1800.0 [facility] Comment on above: RESULTS CALLED TO SA RA MIGUEL RN @BY Alla Kevin [id number] Potassium [Moles/Vol] 3.6 mmol/L 3.5-5.1 [facility] Protein [Mass/Vol] 7.2 g/dL 6.4-8.[address] [facility] Sodium [Moles/Vol] 135 mmol/L Low 136-[address] [facility] Urea nitrogen [Mass/Vol] 34.0 mg/dL High 7.0-18.0 [facility] Urea nitrogen/Creatinine [Mass ratio] 28.6 mg/mg [facility] Laboratory - Hematology and Cell countson 03-27-2024 HbA1c (Bld) [Mass fraction] 11.2 % High 4.5-6.2 [facility] Comment on above: ADA RECOMMENDED LIMI T 4.0 - 6.0ADA THERAPEUTIC TARGET < 7.0ACTION SUGGESTED> 7.0 Immature granulocytes/100 WBC (Bld) 0.3 % 0.0-0.5 [facility] Leukocytes [#/volume] correc gali for nucleated erythrocytes in Blood by Automated counon 03-27-2024 WBC corrected for nucl RBC Auto (Bld) [#/Vol] 9.7 10 3/uL 4.0-11.0 [facility] Lymphocytes Auto (Bld) [#/Vo l]on 03-27-2024 Lymphocytes (Bld) [#/Vol] 1.3 10 3/uL 1.2-3.8 [facility] Lymphocytes/100 WBC Auto (Bl d)on 03-27-2024 Lymphocytes/100 WBC (Bld) 13.3 % Low 20.5-60.0 [facility] MCH Auto (RBC) [Entitic mass ]on 03-27-2024 MCH (RBC) [Entitic mass] 29.2 pg 26.7-34.0 [facility] MCHC Auto (RBC) [Mass/Vol]on 03-27-2024 MCHC (RBC) [Mass/Vol] 32.4 g/dL 29.9-35.2 [facility] MCV Auto (RBC) [Entitic vol] on 03-27-2024 MCV (RBC) [Entitic vol] 90.3 fL 81.0-99.0 [facility] Monocytes Auto (Bld) [#/Vol] on 03-27-2024 Monocytes (Bld) [#/Vol] 0.8 10 3/uL 0.3-0.8 [facility] Monocytes/100 WBC Auto (Bld) on 03-27-2024 Monocytes/100 WBC (Bld) 8.4 % 1.7-12.0 [facility] Neutrophils Auto (Bld) [#/Vo l]on 03-27-2024 Neutrophils (Bld) [#/Vol] 7.4 10 3/uL High 1.4-6.5 [facility] Neutrophils/100 WBC Auto (Bl d)on 03-27-2024 Neutrophils/100 WBC (Bld) 76.1 % High 43.0-75.0 [facility] No Panel Informationon 03-27 Eosinophils # (Auto) 0.1 10 3/uL 0.0-0.7 [facility] Immature Granulocyte # (Auto) 0.03 10 3/uL 0.00-0.03 [facility] 4572.0 pg/mL High <=1800.0 [facility] 1.7 mg/dL Low 1.8-2.4 [facility] 11.2 % High 4.5-6.2 [facility] 2.6 g/dL Low 3.4-5.0 [facility] 0.1 10 3/uL 0.0-0.7 [facility] 89 U/L 46-116 [facility] 12 U/L Low 14-59 [facility] 9 U/L Low 15-37 [facility] 28.6 [facility] 0.03 10 3/uL 0.00-0.03 [facility] 34.0 mg/dL High 7.0-18.0 [facility] 0.3 % 0.0-0.5 [facility] 9.1 mg/dL 8.5-10.1 [facility] 99 mmol/L 98-107 [facility] 28.8 mmol/L 21.0-32.0 [facility] 1.19 mg/dL High 0.55-1.02 [facility] 53 Low >=60 [facility] 273 mg/dL High 74-106 [facility] 3.6 mmol/L 3.5-5.1 [facility] 135 mmol/L Low 136-145 [facility] 0.9 mg/dL 0.2-1.0 [facility] 7.2 g/dL 6.4-8.2 [facility] Platelet mean volume Auto (B ld) [Entitic vol]on 03-27-2024 Platelet mean volume (Bld) [Entitic vol] 10.6 fL 9.5-13.5 [facility] Platelets Auto (Bld) [#/Vol] on 03-27-2024 Platelets (Bld) [#/Vol] 204 10 3/uL 150-450 [facility] RBC Auto (Bld) [#/Vol]on RBC (Bld) [#/Vol] 4.14 10 6/uL Low 4.20-5.40 [facility] Serum or plasma albumin/glob ulin mass ratioon 03-27-2024 Albumin/Globulin [Mass ratio] 0.6 {ratio} [facility] Serum or plasma anion gap de terminationon 03-27-2024 Anion gap [Moles/Vol] 10.8 mmol/L Fi [facility] Basophils Auto (Bld) [#/Vol] on 03-26-2024 Basophils (Bld) [#/Vol] 0.1 10 3/uL 0.0-0.1 [facility] Basophils/100 WBC Auto (Bld) on 03-26-2024 Basophils/100 WBC (Bld) 0.8 % 0.2-2.0 [facility] Eosinophils/100 WBC Auto (Bl d)on 03-26-2024 Eosinophils/100 WBC (Bld) 1.2 % 0.9-7.0 [facility] Erythrocyte distribution wid th Auto (RBC) [Ratio]on 03-26-2024 Erythrocyte distribution width (RBC) [Ratio] 14.5 % 11.0-15.0 [facility] Estimated glomerular filtrat ion rate (GFR) non- Americanon 03-26-2024 GFR/1.73 sq M.predicted among non-blacks MDRD (S/P/Bld) [Vol rate/Area] 46 mL/min/{1.73_m2} Low >=60 [facility] Glucose mean value [Mass/vol ume] in Blood Estimated from glycated hemoglobinon 03-26-2024 Average glucose Estimated from glycated hemoglobin (Bld) [Mass/Vol] 275 mg/dL [facility] Hematocrit Auto (Bld) [Volum e fraction]on 03-26-2024 Hematocrit (Bld) [Volume fraction] 40.1 % 36.0-48.0 [facility] Hemoglobin [Mass/volume] in Bloodon 03-26-2024 Hemoglobin (Bld) [Mass/Vol] 12.7 g/dL 12.0-16.0 [facility] Laboratory - Chemistry and C hemistry - challengeon 03-26-2024 Calcium [Mass/Vol] 9.1 mg/dL 8.5-10.[address] [facility] Chloride [Moles/Vol] 102 mmol/L 98-107 [facility] CO2 [Moles/Vol] 28.5 mmol/L 21.0-32.0 [facility] Creatinine [Mass/Vol] 1.14 mg/dL High 0.55-1.02 [facility] Free T4 [Mass/Vol] 1.29 ng/dL 0.76-1.[address] [facility] GFR/1.73 sq M.predicted MDRD (S/P/Bld) [Vol rate/Area] 56 mL/min/{1.73_m2} Low >=60 [facility] Glucose [Mass/Vol] 246 mg/dL High 74-[address] [facility] Natriuretic peptide B (Bld) [Mass/Vol] 2890.0 pg/mL High <=1800.0 [facility] Comment on above: RESULTS CALLED TO YOEL ROBIN RN @BY Alla Kunz 0556 Potassium [Moles/Vol] 4.3 mmol/L 3.5-5.1 [facility] Sodium [Moles/Vol] 136 mmol/L 136-[address] [facility] TSH Qn 6.001 m[IU]/L High 0.358-3.740 [facility] Urea nitrogen [Mass/Vol] 35.0 mg/dL High 7.0-18.0 [facility] Urea nitrogen/Creatinine [Mass ratio] 30.7 mg/mg [facility] Laboratory - Hematology and Cell countson 03-26-2024 HbA1c (Bld) [Mass fraction] 11.2 % High 4.5-6.2 [facility] Comment on above: ADA RECOMMENDED LIMI T 4.0 - 6.0ADA THERAPEUTIC TARGET < 7.0ACTION SUGGESTED> 7.0 Immature granulocytes/100 WBC (Bld) 0.2 % 0.0-0.5 [facility] Leukocytes [#/volume] correc gali for nucleated erythrocytes in Blood by Automated counon 03-26-2024 WBC corrected for nucl RBC Auto (Bld) [#/Vol] 8.3 10 3/uL 4.0-11.0 [facility] Lymphocytes Auto (Bld) [#/Vo l]on 03-26-2024 Lymphocytes (Bld) [#/Vol] 1.4 10 3/uL 1.2-3.8 [facility] Lymphocytes/100 WBC Auto (Bl d)on 03-26-2024 Lymphocytes/100 WBC (Bld) 16.5 % Low 20.5-60.0 [facility] MCH Auto (RBC) [Entitic mass ]on 03-26-2024 MCH (RBC) [Entitic mass] 29.1 pg 26.7-34.0 [facility] MCHC Auto (RBC) [Mass/Vol]on 03-26-2024 MCHC (RBC) [Mass/Vol] 31.7 g/dL 29.9-35.2 [facility] MCV Auto (RBC) [Entitic vol] on 03-26-2024 MCV (RBC) [Entitic vol] 92.0 fL 81.0-99.0 [facility] Monocytes Auto (Bld) [#/Vol] on 03-26-2024 Monocytes (Bld) [#/Vol] 0.7 10 3/uL 0.3-0.8 [facility] Monocytes/100 WBC Auto (Bld) on 03-26-2024 Monocytes/100 WBC (Bld) 7.9 % 1.7-12.0 [facility] Neutrophils Auto (Bld) [#/Vo l]on 03-26-2024 Neutrophils (Bld) [#/Vol] 6.1 10 3/uL 1.4-6.5 [facility] Neutrophils/100 WBC Auto (Bl d)on 03-26-2024 Neutrophils/100 WBC (Bld) 73.4 % 43.0-75.0 [facility] No Panel Informationon 03-26 Eosinophils # (Auto) 0.1 10 3/uL 0.0-0.7 [facility] Immature Granulocyte # (Auto) 0.02 10 3/uL 0.00-0.03 [facility] Troponin I High Sensitivity 12.4 pg/mL 4.0-51.3 [facility] Comment on above: CUT-OFF POINTS HAVE [...] IN CONJUNCTIONWITH OTHER DIAGNOSTIC AND CLINICAL INFORMATION. 1.29 ng/dL 0.76-1.46 [facility] 6.001 u[iU]/mL High 0.358-3.740 [facility] 2890.0 pg/mL High <=1800.0 [facility] 12.4 pg/mL 4.0-51.3 [facility] 11.2 % High 4.5-6.2 [facility] 30.7 [facility] 35.0 mg/dL High 7.0-18.0 [facility] 0.1 10 3/uL 0.0-0.7 [facility] 9.1 mg/dL 8.5-10.1 [facility] 102 mmol/L 98-107 [facility] 28.5 mmol/L 21.0-32.0 [facility] 1.14 mg/dL High 0.55-1.02 [facility] 0.02 10 3/uL 0.00-0.03 [facility] 56 Low >=60 [facility] 0.2 % 0.0-0.5 [facility] 246 mg/dL High 74-106 [facility] 4.3 mmol/L 3.5-5.1 [facility] 136 mmol/L 136-145 [facility] Platelet mean volume Auto (B ld) [Entitic vol]on 03-26-2024 Platelet mean volume (Bld) [Entitic vol] 10.8 fL 9.5-13.5 [facility] Platelets Auto (Bld) [#/Vol] on 03-26-2024 Platelets (Bld) [#/Vol] 225 10 3/uL 150-450 [facility] RBC Auto (Bld) [#/Vol]on RBC (Bld) [#/Vol] 4.36 10 6/uL 4.20-5.40 [facility] Serum or plasma anion gap de terminationon 03-26-2024 Anion gap [Moles/Vol] 9.8 mmol/L [facility] MR cervical spine wo conon 0 03-13-2024 MR cervical spine wo con [address] [address] MRI Report Signed Patient: Joe Call MR#: [id number] 0 : 1945 Acct:[id number] Age/Sex: 78 / F ADM Date: 03/13/24 Loc: [facility] Room: Type: REG CLI Attending Dr: Eloina Hussein MD Copies to: Eloina Mullins MD Ordering Provider: Eloian Mullins MD Date of Service: 03/13/24 MR/MR [...] Jarred Randolph M.D.03/13/2024 3:47 PM Dictation Location: [place] [address] Transcribed By: [facility] 03/13/24 1547 Dictated By: Jarred Randolph DO 03/13/24 1542 Signed By: 03/13/24 1547 Normal [facility] XR pre/post mri xrayon 03-13 XR pre/post mri xray [facility] [place] [address] MRI Report Signed Patient: Joe Call MR#: [id number] 0 : 1945 Acct:[id number] Age/Sex: 78 / F ADM Date: 03/13/24 [facility]: Type: REG CLI Attending Dr: Eloina Hussein MD Copies to: Eloina Mullins MD Ordering Provider: Eloina Mullins MD Date of Service: 03/13/24 MR/MR lumbar spine wo con: M54.50 ([id number]) XR/XR pre/post mri xray: M54.50 MRI Lumbar [...] Jarred Randolph M.D.03/13/2024 3:58 PM Dictation Location: [place] [address] Transcribed By: [facility] 03/13/24 1558 Dictated By: Jarred Randolph DO 03/13/24 1551 Signed By: 03/13/24 1558 [facility] Office Visiton 03-07-2024 Follow-up visit [id number] Joe Call 1945 F Date Provider Department Center 03/07/2024 RICA DEAN Family History Problem Relation Age of Onset Coronary artery disease Other Diabetes Other Polycystic kidney disease Other Family Status - Relation Status Age at Other Level of Service:28583 [place] OFFICE/OUTPATIENT ESTABLISHED MOD MDM 30 MIN Reason for Visit and Comments: Follow-up [643195] - 6 month [facility] Office Visiton 08-17-2023 Follow-up visit [id number] Joe Call 1945 Date Provider Department Center 08/17/2023 [id number] GILLILAND Family History Problem Relation Age of Onset Coronary artery disease Other Diabetes Other Polycystic kidney disease Other Family Status - Relation Status Age at Other Level of Service:35089 UT OFFICE/OUTPATIENT ESTABLISHED MOD MDM 30-39 MIN Normal [facility] 36on 07-25-2023 36 Pt informed [facility] 36on 07-24-2023 37 She does not need to drink 4 bottle of water. She needs to maintain a 2 L fluid restriction. This includes all fluid not just water. In regards to sleep, I told her she would need to discuss that with her PCP. Thanks. Normal [facility] Office Visiton 07-23-2023 Follow-up visit [id number] Leona Calljenny Cramer 1945 Date Provider Department Center 07/23/2023 ENZO BROWNE Family History Problem Relation Age of Onset Coronary artery disease Other Diabetes Other Polycystic kidney disease Other Family Status - Relation Status Age at Other Level of Service:13369 UT OFFICE/OUTPATIENT ESTABLISHED MOD MDM 30-39 MIN [facility] GI PANEL (PCR)on 03-06-2023 Adenovirus F 40/41 Not detected Normal NOT DETECTED [facility] Comment on above: Performed By: #### P OCGLUC #### [facility] [address] [place] [address] Dr. Kasia Nath Astrovirus Not detected Normal NOT DETECTED [facility] [place] Comment on above: Performed By: #### P OCGLUC #### [facility] [address] [place] [address] Dr. Kasia Nath C. Diff toxin A/B Detected Critically abnormal NOT DETECTED The [facility] Comment on above: Performed By: #### P OCGLUC #### [facility] [address] [place] [address] Dr. Kasia Nath Campylobacter Detected Critically abnormal NOT DETECTED The [facility] Comment on above: Performed By: #### P OCGLUC #### [facility] [address] [place] [address] Dr. Kasia Nath Cryptosporidium Not detected Normal NOT DETECTED [facility] Comment on above: Performed By: #### P OCGLUC #### [facility] [address] [place] [address] Dr. Kasia Nath Cyclos. Cayetanensis Not detected Normal NOT DETECTED The [facility] Comment on above: Performed By: #### P OCGLUC #### [facility] [address] [place] [address] Dr. Kasia Nath E. Coli O157 Not Applicable Normal Not Applicable The [facility] Comment on above: Performed By: #### P OCGLUC #### [facility] [address] [place] [address] Dr. Kasia Nath E. histolytica Not detected Normal NOT DETECTED [facility] Comment on above: Performed By: #### P OCGLUC #### [facility] [address] [place] [address] Dr. Kasia Nath EAEC Not detected Normal NOT DETECTED [facility] [place] Comment on above: Performed By: #### P OCGLUC #### [facility] [address] [place] [address] Dr. Kasia Nath EIEC Not detected Normal NOT DETECTED [facility] [place] Comment on above: Performed By: #### P OCGLUC #### [facility] [address] [place] [address] [address] Kasia Nath EPEC Not detected Normal NOT DETECTED [facility] [place] Comment on above: Performed By: #### P OCGLUC #### [facility] [address] [place] [address] [address] Kasia Nath ETEC Not detected Normal NOT DETECTED [facility] [place] Comment on above: Performed By: #### P OCGLUC #### [facility] [address] [place] [address] [address] Kasia Nath G. Lamblia Not detected Normal NOT DETECTED [facility] [place] Comment on above: Performed By: #### P OCGLUC #### [facility] [address] [place] [address] [address] Kasia KHAN CONTROLS PASSED Normal [facility] Comment on above: Performed By: #### P OCGLUC #### [facility] [address] [place] [address] [address] Kasia FRAIRE HEADER GI PANEL BACTERIA Normal [facility] Comment on above: Performed By: #### P OCGLUC #### [facility] [address] [place] [address] [address] Kasia GE ECOLI GI PANEL DIARRHEAGENIC E.COLI / SHIGELLA Normal [facility] Comment on above: Performed By: #### P OCGLUC #### [facility] [address] [place] [address] Dr. Kasia GE INFO SEE BELOW Normal [facility] Comment on above: Result Comment: EAEC - Enteroaggregative E. Coli EPEC- Enteropathogenic E. Coli ETEC- Enterotoxigenic E. Coli lt/st STEC- Shigella-like toxin-producing E. Coli stx1/stx2 EIEC- Shigella/Enteroinvasive E. Coli Performed By: #### P OCGLUC #### [facility] [address] [place] [address] [address] Kasia GE PARASITES GI PANEL PARASITES Normal [facility] Comment on above: Performed By: #### P OCGLUC #### [facility] [address] [place] [address] [address] Kasia Nath GIPNLHD VIRUS GI PANEL VIRUSES Normal [facility] Comment on above: Performed By: #### P OCGLUC #### [facility] [address] [place] [address] [address] Kasia Nath Norovirus GI/GII Not detected Normal NOT DETECTED The [facility] Comment on above: Performed By: #### P OCGLUC #### [facility] [address] [place] [address] [address] Kasia Nath P. Shigelloides Not detected Normal NOT DETECTED [facility] Comment on above: Performed By: #### P OCGLUC #### [facility] [address] [place] [address] [address] Kasia Nath Rotavirus A Not detected Normal NOT DETECTED The [facility] Comment on above: Performed By: #### P OCGLUC #### [facility] [address] [place] [address] Dr. Kasia Nath Salmonella Not detected Normal NOT DETECTED [facility] [place] Comment on above: Performed By: #### P OCGLUC #### [facility] [address] [place] [address] Dr. Kasia Nath Sapovirus Not detected Normal NOT DETECTED [facility] [place] Comment on above: Performed By: #### P OCGLUC #### [facility] [address] [place] [address] Dr. Kasia Nath STEC Not detected Normal NOT DETECTED [facility] [place] Comment on above: Performed By: #### P OCGLUC #### [facility] [address] [address] [address] Kasia Nath Vibrio Not detected Normal NOT DETECTED [facility] [place] Comment on above: Performed By: #### P OCGLUC #### [facility] [address] [place] [address] [address] Kasia Nath Vibrio Cholera Not detected Normal NOT DETECTED [facility] Comment on above: Performed By: #### P OCGLUC #### [facility] [address] [place] [address] [address] Kasia Nath Y. Enterocolitica Not detected Normal NOT DETECTED The [facility] Comment on above: Performed By: #### P OCGLUC #### [facility] [address] [place] [address] [address] Kasia Nath CBC AUTO DIFFon 02-14-2023 BASO # 0.0 103/ul Normal 0.0-0.1 [facility] Comment on above: Performed By: #### P OCGLUC #### [facility] [address] [place] [address] Dr. Kasia Nath Basophils/100 WBC (Bld) 0.5 % Normal 0.2-2.0 [facility] Comment on above: Performed By: #### P OCGLUC #### [facility] [address] [place] [address] Dr. Kasia Nath EO # 0.2 103/ul Normal 0.0-0.7 [facility] Comment on above: Performed By: #### P OCGLUC #### [facility] [address] [place] [address] Dr. Kasia Nath Eosinophils/100 WBC (Bld) 2.7 % Normal 0.9-7.0 [facility] Comment on above: Performed By: #### P OCGLUC #### [facility] [address] [place] [address] Dr. Kasia Nath Erythrocyte distribution width (RBC) [Ratio] 13.0 % Normal 11.0-15.0 [facility] Comment on above: Performed By: #### P OCGLUC #### [facility] [address] [place] [address] Dr. Kasia Nath Hematocrit (Bld) [Volume fraction] 35.9 % Critically low 36.0-48.0 [facility] Comment on above: Performed By: #### P OCGLUC #### [facility] [address] [place] [address] Dr. Kasia Nath Hemoglobin (Bld) [Mass/Vol] 12.0 g/dL Normal 12.0-16.0 [facility] Comment on above: Performed By: #### P OCGLUC #### [facility] [address] [place] [address] Dr. Kasia Nath IG # 0.02 10e3/ul Normal 0.00-0.03 [facility] Comment on above: Performed By: #### P OCGLUC #### [facility] [address] [place] [address] Dr. Kasia Nath IG % 0.3 % Normal 0.0-0.5 [facility] Comment on above: Performed By: #### P OCGLUC #### [facility] [address] [place] [address] Dr. Kasia Nath LYMPH # 1.8 103/ul Normal 1.2-3.8 [facility] Comment on above: Performed By: #### P OCGLUC #### [facility] [address] [place] [address] Dr. Kasia Nath Lymphocytes/100 WBC (Bld) 22.8 % Normal 20.5-60.0 [facility] Comment on above: Performed By: #### P OCGLUC #### [facility] [address] [place] [address] Dr. Kasia Nath MANUAL DIFF REQ NO Normal [facility] Comment on above: Performed By: #### P OCGLUC #### [facility] [address] [place] [address] Dr. Kasia Nath MCH (RBC) [Entitic mass] 29.4 pg Normal 26.7-34.0 [facility] Comment on above: Performed By: #### P OCGLUC #### [facility] [address] [place] [address] Dr. Kasia Nath MCHC (RBC) [Mass/Vol] 33.4 g/dL Normal 29.9-35.2 [facility] Comment on above: Performed By: #### P OCGLUC #### [facility] [address] [place] [address] Dr. Kasia Nath MCV (RBC) [Entitic vol] 88.0 fL Normal 81.0-99.0 [facility] Comment on above: Performed By: #### P OCGLUC #### [facility] [address] [place] [address] Dr. Kasia Nath MONO # 0.7 103/ul Normal 0.3-0.8 [facility] Comment on above: Performed By: #### P OCGLUC #### [facility] [address] [place] [address] Dr. Kasia Nath Monocytes/100 WBC (Bld) 9.3 % Normal 1.7-12.0 [facility] Comment on above: Performed By: #### P OCGLUC #### [facility] [address] [place] [address] Dr. Kasia Nath NEUT # 5.1 103/ul Normal 1.4-6.5 [facility] Comment on above: Performed By: #### P OCGLUC #### [facility] [address] [place] [address] Dr. Kasia Nath Neutrophils/100 WBC (Bld) 64.4 % Normal 43.0-75.0 [facility] Comment on above: Performed By: #### P OCGLUC #### [facility] [address] [place] [address] Dr. Kasia Nath Platelet mean volume (Bld) [Entitic vol] 11.7 fL Normal 9.5-13.5 [facility] Comment on above: Performed By: #### P OCGLUC #### [facility] [address] [place] [address] Dr. Kasia Nath PLT 175 103/ul Normal 150-450 [facility] Comment on above: Performed By: #### P OCGLUC #### [facility] [address] [place] [address] Dr. Kasia Nath RBC 4.08 106/ul Critically low 4.20-5.40 [facility] Comment on above: Performed By: #### P OCGLUC #### [facility] [address] [place] [address] Dr. Kasia Nath WBC 7.9 103/ul Normal 4.0-11.0 [facility] Comment on above: Performed By: #### P OCGLUC #### [facility] [address] [place] [address] Dr. Kasia Nath LIPASEon 02-14-2023 Lipase [Catalytic activity/Vol] 51.0 U/L Critically low 73.0-393.0 [facility] Comment on above: Performed By: #### L IPA, CMP ####[facility] [id number] [place], [place] [address]Dr. Kasia Nath PROF 14(COMP METB)on 023 Albumin [Mass/Vol] 2.8 g/dL Critically low 3.4-5.0 [facility] Comment on above: Performed By: #### L IPA, CMP ####[facility] [id number] [place], [place] [address]Dr. Kasia Nath Albumin/Globulin [Mass ratio] 0.7 {ratio} Normal [facility] Comment on above: Performed By: #### L IPA, CMP ####[facility] [id number] [place], [place] [address]Dr. Kasia Nath ALP [Catalytic activity/Vol] 90 U/L Normal 46-116 [facility] Comment on above: Performed By: #### L IPA, CMP ####[facility] [address] [place], [place] [address]Dr. Kasia Nath ALT [Catalytic activity/Vol] 15 U/L Normal 14-59 [facility] Comment on above: Performed By: #### L IPA, CMP ####[facility] [id number] [place], [place] [address]Dr. Kasia Nath Anion gap [Moles/Vol] 15.6 mmol/L Normal [facility] Comment on above: Performed By: #### L IPA, CMP ####[facility] [address] [place], [place] [address]Dr. Kasia Nath AST [Catalytic activity/Vol] 9 U/L Critically low 15-37 [facility] Comment on above: Performed By: #### L IPA, CMP ####[facility] [address] [place], [place] [address]Dr. Kasia Nath Bilirubin [Mass/Vol] 0.4 mg/dL Normal 0.2-1.0 [facility] Comment on above: Performed By: #### L IPA, CMP ####[facility] [id number] [place], [place] [address]Dr. Kasia Nath Calcium [Mass/Vol] 9.1 mg/dL Normal 8.5-10.1 [facility] Comment on above: Performed By: #### L IPA, CMP ####[facility] [id number] [place], [place] [address]Dr. Kasia Nath Chloride [Moles/Vol] 104 mmol/L Normal 98-107 [facility] Comment on above: Performed By: #### L IPA, CMP ####[facility] [place] B[address]qrpqsch[address] [place], [place] [address]Dr. Kasia Nath CO2 [Moles/Vol] 17.0 mmol/L Critically low 21.0-32.0 [facility] Comment on above: Performed By: #### L IPA, CMP ####[facility] [place] Ivzpplznmq[address] [place], [place] [address]Dr. Kasia Nath Creatinine [Mass/Vol] 1.78 mg/dL Critically high 0.55-1.02 [facility] Comment on above: Performed By: #### L IPA, CMP ####[facility] [place] Smjgxipyub[address] [place], [place] [address]Dr. Kasia Nath EGFR-AF [facility] LUCIAN 34 mL/min/1.73m2 Critically low >=60 [facility] Comment on above: Performed By: #### L IPA, CMP ####[facility] [place] Znoxabgfnc59[address] [place], [place] [address]Dr. Kasia Nath EGFR-NON AF [facility] LUCIAN 28 mL/min/1.73m2 Critically low >=60 [facility] Comment on above: Performed By: #### L IPA, CMP ####[facility] [place] [address] [place] [address]Dr. Kasia Nath Globulin (S) [Mass/Vol] 4.3 g/dL Normal [facility] Comment on above: Performed By: #### L IPA, CMP ####[facility] [place] Wpkuznfjom[address] [place], [place] [address]Dr. Kasia Nath Glucose [Mass/Vol] 248 mg/dL Critically high 74-106 [facility] Comment on above: Performed By: #### L IPA, CMP ####[facility] [place] [address]ob[address] [place] [address]Dr. Kasia Nath Potassium [Moles/Vol] 4.6 mmol/L Normal 3.5-5.1 [facility] Comment on above: Performed By: #### L IPA, CMP ####[facility] [place] C[address]jjtxbfye[address] [place] [address]Dr. Kasia Nath Protein [Mass/Vol] 7.1 g/dL Normal 6.4-8.2 [facility] Comment on above: Performed By: #### L IPA, CMP ####[facility] [place] Vaugr[address]tf[address] [place], [place] [address]Dr. Kasia Nath Sodium [Moles/Vol] 132 mmol/L Critically low 136-145 [facility] Comment on above: Performed By: #### L IPA, CMP ####[facility] [place] Jvwnspb[address] [place], [place] [address]Dr. Kasia Nath Urea nitrogen [Mass/Vol] 78.0 mg/dL Critically high 7.0-18.0 [facility] Comment on above: Performed By: #### L IPA, CMP ####[facility] [place] Rdocmiforl[address] [place], [place] [address]Dr. Kasia Nath Urea nitrogen/Creatinine [Mass ratio] 43.8 mg/mg Normal [facility] Comment on above: Performed By: #### L IPA, CMP ####[facility] [place] Uenlqfokas[address] [place], [place] [address]Dr. Kasia Nath CBC AUTO DIFFon 02-13-2023 BASO # 0.0 103/ul Normal 0.0-0.1 [facility] Comment on above: Performed By: #### C BC ####[facility] [place] Jevdntjqgn[address] [place], [place] [address]Dr. Kasia Nath Basophils/100 WBC (Bld) 0.5 % Normal 0.2-2.0 [facility] Comment on above: Performed By: #### C BC ####[facility] [place] V[address]ahkpjwz[address] [place], [place] [address]Dr. Kasia Nath EO # 0.1 103/ul Normal 0.0-0.7 [facility] Comment on above: Performed By: #### C BC ####[facility] [place] [address]fzaw[address] [place] [address]Dr. Kasia Nath Eosinophils/100 WBC (Bld) 1.0 % Normal 0.9-7.0 [facility] Comment on above: Performed By: #### C BC ####[facility] [place] Fflhkowpbk[address] [place], [place] [address]Dr. Kasia Nath Erythrocyte distribution width (RBC) [Ratio] 12.8 % Normal 11.0-15.0 [facility] Comment on above: Performed By: #### C BC ####[facility] [place] Epxxhasvsy9[address] [place], [place] [address]Dr. Kasia Nath Hematocrit (Bld) [Volume fraction] 38.5 % Normal 36.0-48.0 [facility] Comment on above: Performed By: #### C BC ####[facility] [place] Bdmxmlwpuf[address] [place], [place] [address]Dr. Kasia Nath Hemoglobin (Bld) [Mass/Vol] 13.0 g/dL Normal 12.0-16.0 The [facility] [place] Comment on above: Performed By: #### C BC ####[facility] [place] Ejsvtidgdu[address] [place], [place] [address]Dr. Kasia Nath IG # 0.02 10e3/ul Normal 0.00-0.03 [facility] [place] Comment on above: Performed By: #### C BC ####[facility] [place] Mxckcawgux[address] [place], [place] [address]Dr. Kasia Nath IG % 0.2 % Normal 0.0-0.5 The [facility] [place] Comment on above: Performed By: #### C BC ####[facility] [place] Njsnazjkpv[address] [place], [place] [address]DrDoreen Kasia Portillo LYMPH # 0.9 103/ul Critically low 1.2-3.8 The [place] Comment on above: Performed By: #### C BC ####[facility] [place] Xqdmvywnkh[address] [place], [place] [address]Dr. Kasia Portillo Lymphocytes/100 WBC (Bld) 10.0 % Critically low 20.5-60.0 [facility] Comment on above: Performed By: #### C BC ####[facility] [place] [address] [place] [address]Dr. Kasia Nath MANUAL DIFF REQ NO Normal [facility] Comment on above: Performed By: #### C BC ####[facility] [place] Fut[address]fqiq[address] [place] [address]Dr. Kasia Nath MCH (RBC) [Entitic mass] 29.5 pg Normal 26.7-34.0 [facility] Comment on above: Performed By: #### C BC ####[facility] [place] B[address]ft[address]fyff[address] [place], [place] [address]Dr. Kasia Nath MCHC (RBC) [Mass/Vol] 33.8 g/dL Normal 29.9-35.2 [facility] Comment on above: Performed By: #### C BC ####[facility] [place] V[address]wezn[address] [place], [place] [address]Dr. Kasia Nath MCV (RBC) [Entitic vol] 87.5 fL Normal 81.0-99.0 [facility] Comment on above: Performed By: #### C BC ####[facility] [place] Fl[address]zhsv[address] [place], [place] [address]DrDoreen Nath MONO # 0.5 103/ul Normal 0.3-0.8 [facility] Comment on above: Performed By: #### C BC ####[facility] [place] [address]jxm[address] [place], [place] [address]Dr. Kasia Nath Monocytes/100 WBC (Bld) 5.7 % Normal 1.7-12.0 [facility] Comment on above: Performed By: #### C BC ####[facility] [place] N[address]ax[address]oul[address] [place], [place] [address]DrDoreen Nath NEUT # 7.2 103/ul Critically high 1.4-6.5 [facility] Comment on above: Performed By: #### C BC ####[facility] [place] V[address]wfv[address] [place], [place] [address]DrDoreen Nath Neutrophils/100 WBC (Bld) 82.6 % Critically high 43.0-75.0 [facility] Comment on above: Performed By: #### C BC ####[facility] [place] [address] [place] [address]Dr. Kasia Nath Platelet mean volume (Bld) [Entitic vol] 11.8 fL Normal 9.5-13.5 [facility] Comment on above: Performed By: #### C BC ####[facility] [place] [address] [place] [id number]. Kasia Nath PLT 187 103/ul Normal 150-450 [facility] Comment on above: Performed By: #### C BC ####[facility] [place] [address]ts[address] [place] [address]Dr. Kasia Nath RBC 4.40 106/ul Normal 4.20-5.40 [facility] Comment on above: Performed By: #### C BC ####[facility] [place] [address] [place] [address]Dr. Kasia Nath WBC 8.8 103/ul Normal 4.0-11.0 The [facility] [place] Comment on above: Performed By: #### C BC ####[facility] [place] [address] [place] [id number]. Kasia Nath CT ABD/PELVIS WO CONon 02-13 [...] JACOB KAZ Date: 2023-02-13 14:40 Normal The [facility] CULTURE URINEon 02-13-2023 CULTURE URINE Culture Observations : LIGHT GROWTH OF MIXED GENITAL VON. NO POTENTIAL PATHOGENS SEEN. Normal The [facility] Comment on above: Performed By: #### U RCX ####[facility] [place] [address] [place] [address]Dr. Kasia Nath Covid-19 PCR ([facility]on SARS-CoV-2 (COVID-19) RNA FERN+probe Ql (Unsp spec) Not detected Normal NOT DETECTED The [facility] [place] Comment on above: Result Comment: When [...] for this test is supported by the [place] of Health and Human Service's declaration that [...] used). Performed By: #### P OCGLUC #### [facility] [place] [facility] [address] [place], [place] [address] Dr. Kasia Nath GI PANEL (PCR)on 02-13-2023 Adenovirus F 40/41 Not detected Normal NOT DETECTED [facility] Comment on above: Performed By: #### C BC #### [facility] [place] [facility] [address] [place] [address] Dr. Kasia Nath Astrovirus Not detected Normal NOT DETECTED [facility] [place] Comment on above: Performed By: #### C BC #### [facility] [place] [facility] [address] [place] [address] Dr. Kasia Nath C. Diff toxin A/B Not detected Normal NOT DETECTED The [facility] [place] Comment on above: Performed By: #### C BC #### [facility] [place] [facility] [address] [place] [address] Dr. Kasia Nath Campylobacter Not detected Normal NOT DETECTED The [facility] Comment on above: Performed By: #### C BC #### [facility] [place] [facility] [address] [place] [address] Dr. Kasia Nath Cryptosporidium Not detected Normal NOT DETECTED The [facility] Comment on above: Performed By: #### C BC #### [facility] [place] [facility] [address] [place] [address] Dr. Kasia Nath Cyclos. Cayetanensis Not detected Normal NOT DETECTED The [facility] [place] Comment on above: Performed By: #### C BC #### [facility] [place] [facility] [address] [place] [address] Dr. Kasia Nath E. Coli O157 Not Applicable Normal Not Applicable The [facility] [place] Comment on above: Performed By: #### C BC #### [facility] [place] [facility] [address] [place] [address] Dr. Kasia Nath E. histolytica Not detected Normal NOT DETECTED The [facility] Comment on above: Performed By: #### C BC #### [facility] [place] [facility] [address] [place] [address] Dr. Kasia Nath EAEC Not detected Normal NOT DETECTED [facility] Comment on above: Performed By: #### C BC #### [facility] [place] [facility] [address] [place] [address] Dr. Kasia Nath EIEC Not detected Normal NOT DETECTED [facility] [place] Comment on above: Performed By: #### C BC #### [facility] [place] [facility] [address] [place] [address] [address] Kasia Nath EPEC Not detected Normal NOT DETECTED [facility] [place] Comment on above: Performed By: #### C BC #### [facility] [place] [facility] [address] [place] [address] [address] Kasia Nath ETEC Not detected Normal NOT DETECTED [facility] [place] Comment on above: Performed By: #### C BC #### [facility] [place] [facility] [address] [place] [address] [address] Kasia Terrazas Lamblia Not detected Normal NOT DETECTED [facility] Comment on above: Performed By: #### C BC #### [facility] [place] [facility] [address] [place] [address] Dr. Kasia KHAN CONTROLS PASSED Normal [facility] Comment on above: Performed By: #### C BC #### [facility] [place] [facility] [address] [place] [address] Dr. Kasia FRAIRE HEADER GI PANEL BACTERIA Normal [facility] Comment on above: Performed By: #### C BC #### [facility] [place] [facility] [address] [place] [address] [address] Kasia GE ECOLI GI PANEL DIARRHEAGENIC E.COLI / SHIGELLA Normal [facility] Comment on above: Performed By: #### C BC #### [facility] [place] [facility] [address] [place] [address] Dr. Kasia GE INFO SEE BELOW [facility] Comment on above: Result Comment: EAEC - Enteroaggregative E. Coli EPEC- Enteropathogenic E. Coli ETEC- Enterotoxigenic E. Coli lt/st STEC- Shigella-like toxin-producing E. Coli stx1/stx2 EIEC- Shigella/Enteroinvasive E. Coli Performed By: #### C BC #### [facility] [place] [facility] [address] [place] [address] Dr. Kasia GE PARASITES GI PANEL PARASITES [facility] Comment on above: Performed By: #### C BC #### [facility] [place] [facility] [address] [place], [place] [id number] Dr. Kasia Nath GIPNLHD VIRUS GI PANEL VIRUSES Normal The [facility] Comment on above: Performed By: #### C BC #### [facility] [place] [facility] [address] [place] [address] Dr. Kasia Nath Norovirus GI/GII Not detected Normal NOT DETECTED The [facility] [place] Comment on above: Performed By: #### C BC #### [facility] [place] [facility] [address] [place] [address] Dr. Kasia Nath P. Shigelloides Not detected Normal NOT DETECTED The [facility] Comment on above: Performed By: #### C BC #### [facility] [place] [facility] [address] [place] [address] Dr. Kasia Nath Rotavirus A Not detected Normal NOT DETECTED The [facility] Comment on above: Performed By: #### C BC #### [facility] [place] [facility] [address] [place] [address] Dr. Kasia Nath Salmonella Not detected Normal NOT DETECTED [facility] [place] Comment on above: Performed By: #### C BC #### [facility] [place] [facility] [address] [place] [address] Dr. Kasia Nath Sapovirus Not detected Normal NOT DETECTED [facility] [place] Comment on above: Performed By: #### C BC #### [facility] [place] [facility] [address] [place] [address] Dr. Kasia Nath STEC Not detected Normal NOT DETECTED [facility] [place] Comment on above: Performed By: #### C BC #### [facility] [place] [facility] [address] [place] [address] Dr. Kasia Nath Vibrio Not detected Normal NOT DETECTED [facility] [place] Comment on above: Performed By: #### C BC #### [facility] [place] [facility] [address] [place] [address] Dr. Kasia Nath Vibrio Cholera Not detected Normal NOT DETECTED [facility] Comment on above: Performed By: #### C BC #### [facility] [place] [facility] [address] [place] [address] Dr. Kasia Nath Y. Enterocolitica Not detected Normal NOT DETECTED The [facility] [place] Comment on above: Performed By: #### C BC #### [facility] [place] [facility] [address] [place] [address] Dr. Kasia Nath LACTATE/LACTIC ACIDon 2022 Lactate [Moles/Vol] 1.7 mmol/L Normal 0.4-2.0 [facility] Comment on above: Performed By: #### L ACT ####[facility] [place] [address] [place] [address]Dr. Kasia Nath LIPASEon 02-13-2023 Lipase [Catalytic activity/Vol] 82.0 U/L Normal 73.0-393.0 [facility] Comment on above: Performed By: #### L IPA, CMP #### [facility] [place] [facility] [address] [place] [address] Dr. Kasia Nath POINT OF CARE GLUCOSEon Glucose [Mass/Vol] 229 mg/dL Critically high 74-106 [facility] Comment on above: Performed By: #### P OCGLUC #### [facility] [place] [facility] [address] [place] [address] Dr. Kasia Nath Glucose [Mass/Vol] 474 mg/dL Critically high 74-106 [facility] Comment on above: Performed By: #### P OCGLUC #### [facility] [place] [facility] [address] [place] [address] Dr. Kasia Nath PROF 14(COMP METB)on 023 Albumin [Mass/Vol] 3.4 g/dL Normal 3.4-5.0 [facility] Comment on above: Performed By: #### L IPA, CMP #### [facility] [place] [facility] [address] [place] [address] Dr. Kasia Nath Albumin/Globulin [Mass ratio] 0.7 {ratio} Normal [facility] Comment on above: Performed By: #### L IPA, CMP #### [facility] [place] [facility] [address] [place] [address] Dr. Kasia Nath ALP [Catalytic activity/Vol] 106 U/L Normal 46-116 [facility] Comment on above: Performed By: #### L IPA, CMP #### [facility] [place] [facility] [address] [place] [address] Dr. Kasia Nath ALT [Catalytic activity/Vol] 21 U/L Normal 14-59 [facility] Comment on above: Performed By: #### L IPA, CMP #### [facility] [place] [facility] [address] [place] [address] [address] Kasia Nath Anion gap [Moles/Vol] 17.7 mmol/L Normal Th [facility] Comment on above: Performed By: #### L IPA, CMP #### [facility] [place] [facility] [address] [place] [address] [address] Kasia Nath AST [Catalytic activity/Vol] 11 U/L Critically low 15-37 [facility] Comment on above: Performed By: #### L IPA, CMP #### [facility] [place] [facility] [address] [place] [address] [address] Kasia Nath Bilirubin [Mass/Vol] 0.5 mg/dL Normal 0.2-1.0 [facility] Comment on above: Performed By: #### L IPA, CMP #### [facility] [place] [facility] [address] [place] [address] [address] Kasia Nath Calcium [Mass/Vol] 9.6 mg/dL Normal 8.5-10.1 [facility] Comment on above: Performed By: #### L IPA, CMP #### [facility] [place] [facility] [address] [place] [address] Dr. Kasia Nath Chloride [Moles/Vol] 99 mmol/L Normal 98-107 [facility] Comment on above: Performed By: #### L IPA, CMP #### [facility] [place] [facility] [address] [place] [address] [address] Kasia Nath CO2 [Moles/Vol] 20.6 mmol/L Critically low 21.0-32.0 [facility] Comment on above: Performed By: #### L IPA, CMP #### [facility] [place] [facility] [address] [place] [address] [address] Kasia Nath Creatinine [Mass/Vol] 2.14 mg/dL Critically high 0.55-1.02 [facility] Comment on above: Performed By: #### L IPA, CMP #### [facility] [place] [facility] [address] [place] [address] [address] Kasia Nath EGFR-AF [facility] LUCIAN 27 mL/min/1.73m2 Critically low >=60 [facility] Comment on above: Performed By: #### L IPA, CMP #### [facility] [place] [facility] [address] [place] [address] [address] Kasia Nath EGFR-NON AF [facility] LUCIAN 22 mL/min/1.73m2 Critically low >=60 [facility] Comment on above: Performed By: #### L IPA, CMP #### [facility] [place] [facility] [address] [place] [address] [address] Kasia Nath Globulin (S) [Mass/Vol] 4.8 g/dL Normal [facility] Comment on above: Performed By: #### L IPA, CMP #### [facility] [place] [facility] [address] [place] [address] [address] Kasia Nath Glucose [Mass/Vol] 498 mg/dL Critically high 74-106 [facility] Comment on above: Performed By: #### L IPA, CMP #### [facility] [place] [facility] [address] [place] [address] [address] Kasia Nath Potassium [Moles/Vol] 5.3 mmol/L Critically high 3.5-5.1 [facility] Comment on above: Performed By: #### L IPA, CMP #### [facility] [place] [facility] [address] [place] [address] [address] Kasia Nath Protein [Mass/Vol] 8.2 g/dL Normal 6.4-8.2 [facility] Comment on above: Performed By: #### L IPA, CMP #### [facility] [place] [facility] [address] [place] [address] [address] Kasia Nath Sodium [Moles/Vol] 132 mmol/L Critically low 136-145 [facility] Comment on above: Performed By: #### L IPA, CMP #### [facility] [place] [facility] [address] [place] [address] [address] Kasia Nath Urea nitrogen [Mass/Vol] 86.0 mg/dL Critically high 7.0-18.0 [facility] Comment on above: Performed By: #### L IPA, CMP #### [facility] [place] [facility] [address] [place] [address] [address] Kasia Nath Urea nitrogen/Creatinine [Mass ratio] 40.2 mg/mg Normal The [facility] [place] Comment on above: Performed By: #### L IPA, CMP #### [facility] [place] [facility] [address] [place] [address] [address] Kasia Nath UA RANDOM W/MICROSCOPICon BACTERIA TRACE Abnormal NONE SEEN The [facility] [place] Comment on above: Performed By: #### U AMIC ####[facility] [place] [address] [place] [address]Dr. Kasia Nath Bilirubin Ql (U) Negative Normal NEGATIVE The [facility] Comment on above: Performed By: #### U AMIC ####[facility] [place] [address] [place] [address]Dr. Kasia Nath CAST SEEN Abnormal NONE SEEN The [facility] [place] Comment on above: Performed By: #### U AMIC ####[facility] [place] [address] [place], [place] [address]Dr. Kasia Nath Clarity (U) CLEAR Normal CLEAR The [facility] [place] Comment on above: Performed By: #### U AMIC ####[facility] [place] [address] [place], [place] [address]Dr. Kasia Nath Color (U) LT. YELLOW Normal YELLOW The [facility] [place] Comment on above: Performed By: #### U AMIC ####[facility] [place] [address] [place] [address]Dr. Kasia Nath Crystals LM Nom (Urine sed) NONE SEEN Normal NONE SEEN The [facility] [place] Comment on above: Performed By: #### U AMIC ####[facility] [place] [address] [place] [address]Dr. Kasia Nath Epithelial cells LM Ql (Urine sed) FEW Abnormal NONE SEEN /RARE The [facility] [place] Comment on above: Performed By: #### U AMIC ####[facility] [place] [address] [place] [address]Dr. Kasia Nath Glucose Ql (U) >1000 Abnormal NEGATIVE The [facility] Comment on above: Performed By: #### U AMIC ####[facility] [place] [address] [place] [address]Dr. Fartuncristy Portillo Hemoglobin Ql (U) Negative Normal NEGATIVE The [facility] Comment on above: Performed By: #### U AMIC ####[facility] [place] [address] [place] [address]Dr. Fartuncristy Nath HYALINE CAST RARE Normal The [facility] [place] Comment on above: Performed By: #### U AMIC ####[facility] [place] [address] [place] [address]Dr. Kasia Nath Ketones Ql (U) Negative Normal NEGATIVE [facility] [place] Comment on above: Performed By: #### U AMIC ####[facility] [place] [id number] [place], [place] [address]Dr. Kasia Nath LEUKOCYTES Negative Normal NEGATIVE The [facility] [place] Comment on above: Performed By: #### U AMIC ####[facility] [place] Osjpgwrncf[address] [place], [place] [address]Dr. Kasia Nath MUCOUS NONE SEEN Normal NONE SEEN The [facility] [place] Comment on above: Performed By: #### U AMIC ####[facility] [place] Qdavtgknvo[address] [place], [place] [address]Dr. Kasia Nath Nitrite Ql (U) Negative Normal NEGATIVE [facility] [place] Comment on above: Performed By: #### U AMIC ####[facility] [place] T[address]wk[address] [place], [place] [address]Dr. Kasia Nath pH (U) 5.5 [pH] Normal 5-9 The [facility] [place] Comment on above: Performed By: #### U AMIC ####[facility] [place] I[address] [place], [place] [address]Dr. Kasia Nath RBC 0-2 Normal 0-2 The [facility] [place] Comment on above: Performed By: #### U AMIC ####[facility] [place] Drez[address] [place], [place] [address]Dr. Kasia Nath SPEC GRAVITY 1.015 Normal 1.005-<=1.02 5 [facility] Comment on above: Performed By: #### U AMIC ####[facility] [place] [address] [place] [address]Dr. Kasia Nath UA PROTEIN TRACE Normal NEGATIVE/ TRACE [facility] Comment on above: Performed By: #### U AMIC ####[facility] [place] G[address] [place], [place] [address]Dr. Kasia Nath Urobilinogen Qn (U) 0.2 {Meka'U}/dL Normal 0.2 - 1. 0 [facility] Comment on above: Performed By: #### U AMIC ####[facility] [place] T[address] [place], [place] [address]Dr. Kasia Nath WBC 0-2 Abnormal NONE SEEN The [facility] [place] Comment on above: Performed By: #### U AMIC ####[facility] [place] F[address] [place], [place] [address]Dr. Kasia Nath BNPon 01-16-2023 Natriuretic peptide B (Bld) [Mass/Vol] 1675.0 pg/mL Normal <=1,800.0 [facility] Comment on above: Performed By: #### B PIPE JEEPER, CMP ####[facility] [place] Q[address] [place], [place] [address]Dr. Kasia Nath PROF 14(COMP METB)on 023 Albumin [Mass/Vol] 3.4 g/dL Normal 3.4-5.0 [facility] Comment on above: Performed By: #### B PIPE JEEPER, CMP ####[facility] [place] P[address] [place], [place] [address]Dr. Kasia Nath Albumin/Globulin [Mass ratio] 0.8 {ratio} Normal [facility] Comment on above: Performed By: #### B PIPE JEEPER, CMP ####[facility] [place] Y[address] [place], [place] [address]Dr. Kasia Nath ALP [Catalytic activity/Vol] 99 U/L Normal 46-116 The [facility] [place] Comment on above: Performed By: #### B PIPE JEEPER, CMP ####[facility] [place] R[address] [place], [place] [address]Dr. Kasia Nath ALT [Catalytic activity/Vol] 18 U/L Normal 14-59 [facility] Comment on above: Performed By: #### B PIPE JEEPER, CMP ####[facility] [place] [address] [place] [id number]. Kasia Nath Anion gap [Moles/Vol] 10.6 mmol/L Normal Th [facility] Comment on above: Performed By: #### B PIPE JEEPER, CMP ####[facility] [place] [address] [place] [id number]. Kasia Nath AST [Catalytic activity/Vol] 15 U/L Normal 15-37 [facility] Comment on above: Performed By: #### B PIPE JEEPER, CMP ####[facility] [place] Eyariocupv[address] [place] [id number]. Kasia Nath Bilirubin [Mass/Vol] 0.5 mg/dL Normal 0.2-1.0 [facility] Comment on above: Performed By: #### B PIPE JEEPER, CMP ####[facility] [place] [address] [place], [place] [address]Dr. Kasia Nath Calcium [Mass/Vol] 9.1 mg/dL Normal 8.5-10.1 [facility] Comment on above: Performed By: #### B PIPE JEEPER, CMP ####[facility] [place] [address] [place] [id number]. Kasia Nath Chloride [Moles/Vol] 98 mmol/L Normal 98-107 [facility] Comment on above: Performed By: #### B PIPE JEEPER, CMP ####[facility] [place] [address] [place] [id number]. Kasia Nath CO2 [Moles/Vol] 30.4 mmol/L Normal 21.0-32.0 [facility] Comment on above: Performed By: #### B PIPE JEEPER, CMP ####[facility] [place] [address] [place] [id number]. Kasia Nath Creatinine [Mass/Vol] 1.44 mg/dL Critically high 0.55-1.02 [facility] Comment on above: Performed By: #### B PIPE JEEPER, CMP ####[facility] [place] [address]kt[address]ht[address] [place] [id number]. Kasia Portillo EGFR-AF [facility] LUCIAN 43 mL/min/1.73m2 Critically low >=60 [facility] Comment on above: Performed By: #### B PIPE JEEPER, CMP ####[facility] [place] [address] [place] [address]Dr. Kasia Nath EGFR-NON AF [facility] LUCIAN 35 mL/min/1.73m2 Critically low >=60 [facility] Comment on above: Performed By: #### B PIPE JEEPER, CMP ####[facility] [place] Cp[address] [place], [place] [address]Dr. Kasia Nath Globulin (S) [Mass/Vol] 4.4 g/dL Normal [facility] Comment on above: Performed By: #### B PIPE JEEPER, CMP ####[facility] [place] J[address]ls[address] [place], [place] [address]Dr. Kasia Nath Glucose [Mass/Vol] 401 mg/dL Critically high 74-106 [facility] Comment on above: Performed By: #### B PIPE JEEPER, CMP ####[facility] [place] P[address]fe[address] [place], [place] [address]Dr. Kasia Nath Potassium [Moles/Vol] 5.0 mmol/L Normal 3.5-5.1 [facility] Comment on above: Performed By: #### B PIPE JEEPER, CMP ####[facility] [place] Vs[address] [place], [place] [address]Dr. Kasia Nath Protein [Mass/Vol] 7.8 g/dL Normal 6.4-8.2 [facility] Comment on above: Performed By: #### B PIPE JEEPER, CMP ####[facility] [place] M[address] [place], [place] [address]Dr. Kasia Nath Sodium [Moles/Vol] 134 mmol/L Critically low 136-145 [facility] Comment on above: Performed By: #### B PIPE JEEPER, CMP ####[facility] [place] Ce[address] [place], [place] [address]Dr. Kasia Nath Urea nitrogen [Mass/Vol] 46.0 mg/dL Critically high 7.0-18.0 [facility] Comment on above: Performed By: #### B PIPE JEEPER, CMP ####[facility] [place] T[address]row[address]il[address] [place], [place] [address]Dr. Kasia Nath Urea nitrogen/Creatinine [Mass ratio] 31.9 mg/mg Normal [facility] Comment on above: Performed By: #### B PIPE JEEPER, CMP ####[facility] [place] [address]tr[address] [place] [address]Dr. Kasia Nath BNPon 01-05-2023 Natriuretic peptide B (Bld) [Mass/Vol] 1389.0 pg/mL Normal <=1,800.0 The [facility] [place] Comment on above: Performed By: #### B PIPE JEEPER, CMADM, CMP ####[facility] [place] [address] [place] [address]Dr. Kasia Nath CARDIAC EMERY ADMITon 023 CK [Catalytic activity/Vol] 138 U/L Normal 26-192 The [facility] [place] Comment on above: Performed By: #### B PIPE JEEPER, CMADM, CMP ####[facility] [place] [address] [place] [address]Dr. Kasia Nath CK.MB [Mass/Vol] 2.22 ng/mL Normal <=3.60 The [facility] Comment on above: Performed By: #### B PIPE JEEPER, CMADM, CMP ####[facility] [place] [address] [place] [address]Dr. Kasia Portillo HSTROP 15.9 pg/mL Normal 4.0-51.3 The [facility] Comment on above: Result Comment: CUT- OFF POINTS HAVE BEEN ESTABLISHED BASED ON THE FOURTH UNIVERSAL DEFINITIONS OF MYOCARDIAL INFARCTION. THE UPPER REFERENCE LIMIT (URL) OF TROPONIN, DEFINED THE 99TH PERCENTILE OF cTnI DISTRIBUTION IN A REFERENCE POPULATION, HAS BEEN CONFIRMED THE DECISION THRESHOLD FOR [place] DIAGNOSIS. Performed By: #### B PIPE JEEPER, CMADM, CMP ####[facility] [place] [address] [place] [address]Dr. Fartuncristy Nath GRETTA 178 ng/mL Critically high 9-82 The [facility] Comment on above: Performed By: #### B PIPE JEEPER, CMADM, CMP ####[facility] [place] [address] [place] [address]Dr. Kasia Nath CBC AUTO DIFFon 01-05-2023 BASO # 0.1 103/ul Normal 0.0-0.1 [facility] Comment on above: Performed By: #### C BC #### [facility] [place] Laboratory [address] [place] [address] Dr. Kasia Nath Basophils/100 WBC (Bld) 0.7 % Normal 0.2-2.0 [facility] Comment on above: Performed By: #### C BC #### [facility] [place] Laboratory [address] [place] [address] Dr. Kasia Nath EO # 0.3 103/ul Normal 0.0-0.7 [facility] Comment on above: Performed By: #### C BC #### [facility] [place] [facility] [address] [place] [address] Dr. Kasia Nath Eosinophils/100 WBC (Bld) 2.9 % Normal 0.9-7.0 [facility] Comment on above: Performed By: #### C BC #### [facility] [place] Laboratory [address] [place] [address] Dr. Kasia Nath Erythrocyte distribution width (RBC) [Ratio] 13.5 % Normal 11.0-15.0 [facility] Comment on above: Performed By: #### C BC #### [facility] [place] [facility] [address] [place] [address] Dr. Kasia Nath Hematocrit (Bld) [Volume fraction] 39.8 % Normal 36.0-48.0 [facility] Comment on above: Performed By: #### C BC #### [facility] [place] [facility] [address] [place] [address] Dr. Kasia Nath Hemoglobin (Bld) [Mass/Vol] 13.5 g/dL Normal 12.0-16.0 [facility] Comment on above: Performed By: #### C BC #### [facility] [place] [facility] [address] [place] [address] Dr. Kasia Nath IG # 0.02 10e3/ul Normal 0.00-0.03 [facility] Comment on above: Performed By: #### C BC #### [facility] [place] [facility] [address] [place] [address] Dr. Kasia Nath IG % 0.2 % Normal 0.0-0.5 [facility] Comment on above: Performed By: #### C BC #### [facility] [place] [facility] [address] [place] [address] [address] Kasia Nath LYMPH # 1.9 103/ul Normal 1.2-3.8 [facility] Comment on above: Performed By: #### C BC #### [facility] [place] [facility] [address] [place] [address] Dr. Kasia Nath Lymphocytes/100 WBC (Bld) 22.0 % Normal 20.5-60.0 [facility] Comment on above: Performed By: #### C BC #### [facility] [place] [facility] [address] [place] [address] Dr. Kasia Nath MANUAL DIFF REQ NO Normal [facility] Comment on above: Performed By: #### C BC #### [facility] [place] [facility] [address] [place] [address] Dr. Kasia Nath MCH (RBC) [Entitic mass] 29.8 pg Normal 26.7-34.0 [facility] Comment on above: Performed By: #### C BC #### [facility] [address] [place] [address] Dr. Kasia Nath MCHC (RBC) [Mass/Vol] 33.9 g/dL Normal 29.9-35.2 [facility] Comment on above: Performed By: #### C BC #### [facility] [place] [facility] [address] [place] [address] Dr. Kasia Nath MCV (RBC) [Entitic vol] 87.9 fL Normal 81.0-99.0 [facility] Comment on above: Performed By: #### C BC #### [facility] [place] [facility] [address] [place] [address] Dr. Kasia Nath MONO # 0.8 103/ul Normal 0.3-0.8 [facility] Comment on above: Performed By: #### C BC #### [facility] [place] [facility] [address] [place] [address] Dr. Kasia Nath Monocytes/100 WBC (Bld) 8.8 % Normal 1.7-12.0 [facility] Comment on above: Performed By: #### C BC #### [facility] [place] [facility] [address] [place] [address] Dr. Kasia Nath NEUT # 5.6 103/ul Normal 1.4-6.5 [facility] Comment on above: Performed By: #### C BC #### [facility] [place] [facility] [address] [place] [address] Dr. Kasia Nath Neutrophils/100 WBC (Bld) 65.4 % Normal 43.0-75.0 [facility] Comment on above: Performed By: #### C BC #### [facility] [place] [facility] [address] [place] [address] Dr. Kasia Nath Platelet mean volume (Bld) [Entitic vol] 10.6 fL Normal 9.5-13.5 [facility] Comment on above: Performed By: #### C BC #### [facility] [place] [facility] [address] [place] [address] Dr. Kasia Nath PLT 222 103/ul Normal 150-450 [facility] Comment on above: Performed By: #### C BC #### [facility] [place] [facility] [address] [place] [address] Dr. Kasia Nath RBC 4.53 106/ul Normal 4.20-5.40 [facility] Comment on above: Performed By: #### C BC #### [facility] [place] [facility] [address] [place] [address] Dr. Kasia Nath WBC 8.6 103/ul Normal 4.0-11.0 [facility] Comment on above: Performed By: #### C BC #### [facility] [place] [facility] [address] [place] [address] Dr. Kasia Nath PROF 14(COMP METB)on 023 Albumin [Mass/Vol] 3.3 g/dL Critically low 3.4-5.0 Th [facility] Comment on above: Performed By: #### B PIPE JEEPER, CMADM, CMP #### [facility] [place] [facility] [address] [place] [address] Dr. Kasia Nath Albumin/Globulin [Mass ratio] 0.7 {ratio} Normal [facility] Comment on above: Performed By: #### B PIPE JEEPER, CMADM, CMP #### [facility] [place] [facility] [address] [place] [address] [address] Kasia Nath ALP [Catalytic activity/Vol] 106 U/L Normal 46-116 [facility] Comment on above: Performed By: #### B PIPE JEEPER, CMADM, CMP #### [facility] [place] [facility] [address] [place] [address] [address] Kasia Nath ALT [Catalytic activity/Vol] 22 U/L Normal 14-59 [facility] Comment on above: Performed By: #### B PIPE JEEPER, CMADM, CMP #### [facility] [place] [facility] [address] [address] [address] Kasia Nath Anion gap [Moles/Vol] 12.0 mmol/L Normal [facility] Comment on above: Performed By: #### B PIPE JEEPER, CMADM, CMP #### [facility] [place] [facility] [address] [address] [address] Kasia Nath AST [Catalytic activity/Vol] 23 U/L Normal 15-37 [facility] Comment on above: Performed By: #### B PIPE JEEPER, CMADM, CMP #### [facility] [place] [facility] [address] [address] [address] Kasia Nath Bilirubin [Mass/Vol] 0.7 mg/dL Normal 0.2-1.0 [facility] Comment on above: Performed By: #### B PIPE JEEPER, CMADM, CMP #### [facility] [place] [facility] [address] [place] [address] [address] Kasia Nath Calcium [Mass/Vol] 8.8 mg/dL Normal 8.5-10.1 [facility] Comment on above: Performed By: #### B PIPE JEEPER, CMADM, CMP #### [facility] [place] [facility] [address] [address] [address] Kasia Nath Chloride [Moles/Vol] 98 mmol/L Normal 98-107 [facility] Comment on above: Performed By: #### B PIPE JEEPER, CMADM, CMP #### [facility] [place] [facility] [address] [address] [address] Kasia Nath CO2 [Moles/Vol] 30.2 mmol/L Normal 21.0-32.0 [facility] Comment on above: Performed By: #### B PIPE JEEPER, MACDM, CMP #### [facility] [place] [facility] [address] [place] [address] Dr. Kasia Nath Creatinine [Mass/Vol] 1.19 mg/dL Critically high 0.55-1.02 [facility] Comment on above: Performed By: #### B PIPE JEEPER, CMADM, CMP #### [facility] [place] [facility] [address] [address] [address] Kasia Nath EGFR-AF [facility] 53 mL/min/1.73m2 Critically low >=60 [facility] Comment on above: Performed By: #### B PIPE JEEPER, CMADM, CMP #### [facility] [place] [facility] [address] [place] [address] Dr. Kasia Nath EGFR-NON AF [facility] 44 mL/min/1.73m2 Critically low >=60 [facility] Comment on above: Performed By: #### B PIPE JEEPER, CMADM, CMP #### [facility] [place] [facility] [address] [place] [address] Dr. Kasia Nath Globulin (S) [Mass/Vol] 4.7 g/dL Normal [facility] Comment on above: Performed By: #### B PIPE JEEPER, MACDM, CMP #### [facility] [place] [facility] [address] [place] [address] Dr. Kasia Nath Glucose [Mass/Vol] 124 mg/dL Critically high 74-106 [facility] Comment on above: Performed By: #### B PIPE JEEPER, CMADM, CMP #### [facility] [place] [facility] [address] [place] [address] Dr. Kasia Nath Potassium [Moles/Vol] 3.2 mmol/L Critically low 3.5-5.1 [facility] Comment on above: Performed By: #### B PIPE JEEPER, CMADM, CMP #### [facility] [place] [facility] [address] [place] [address] Dr. Kasia Nath Protein [Mass/Vol] 8.0 g/dL Normal 6.4-8.2 [facility] Comment on above: Performed By: #### B PIPE JEEPER, CMADM, CMP #### [facility] [place] [facility] [address] [place], [place] [address] Dr. Kasia Nath Sodium [Moles/Vol] 137 mmol/L Normal 136-145 [facility] Comment on above: Performed By: #### B PIPE JEEPER, CMADM, CMP #### [facility] [place] [facility] [address] [place], [place] [address] Dr. Kasia Nath Urea nitrogen [Mass/Vol] 29.0 mg/dL Critically high 7.0-18.0 [facility] Comment on above: Performed By: #### B PIPE JEEPER, CMADM, CMP #### [facility] [place] [facility] [address] [place] [address] [address] Kasia Nath Urea nitrogen/Creatinine [Mass ratio] 24.4 mg/mg Normal [facility] Comment on above: Performed By: #### B PIPE JEEPER, CMADM, CMP #### [facility] [place] [facility] [address] [place] [address] [address] Kasia Nath TROPONIN, HIGH SENSITIVITYon 01-05-2023 HSTROP 18.4 pg/mL Normal 4.0-51.3 [facility] Comment on above: Result Comment: CUT- OFF POINTS HAVE BEEN ESTABLISHED BASED ON THE FOURTH UNIVERSAL DEFINITIONS OF MYOCARDIAL INFARCTION. THE UPPER REFERENCE LIMIT (URL) OF TROPONIN, DEFINED THE 99TH PERCENTILE OF cTnI DISTRIBUTION IN A REFERENCE POPULATION, HAS BEEN CONFIRMED THE DECISION THRESHOLD FOR [place] DIAGNOSIS. Performed By: #### H STROPN ####[facility] [place] [address] [place], [place] [address]MtDr. Kasia Nath XR CHEST 1 Von 01-05-2023 [...] BIN ROJAS Date: 2023-01-05 04:39 Normal The [facility] BNPon 01-02-2023 Natriuretic peptide B (Bld) [Mass/Vol] 2583.0 pg/mL Critically high <=1,800.0 The [facility] [place] Comment on above: Performed By: #### B PIPE JEEPER, CMP ####[facility] [place] [address] [place] [address]Dr. Kasia Nath CBC AUTO DIFFon 01-02-2023 BASO # 0.1 103/ul Normal 0.0-0.1 [facility] Comment on above: Performed By: #### P OCGLUC #### [facility] [place] [facility] [address] [address] [address] Kasia Nath Basophils/100 WBC (Bld) 0.9 % Normal 0.2-2.0 [facility] Comment on above: Performed By: #### P OCGLUC #### [facility] [place] [facility] [address] [address] [address] Kasia Nath EO # 0.2 103/ul Normal 0.0-0.7 The [facility] [place] Comment on above: Performed By: #### P OCGLUC #### [facility] [place] [facility] [address] [address] [address] Kasia Nath Eosinophils/100 WBC (Bld) 2.3 % Normal 0.9-7.0 The [facility] [place] Comment on above: Performed By: #### P OCGLUC #### [facility] [place] [facility] [address] [address] [address] Kasia Nath Erythrocyte distribution width (RBC) [Ratio] 13.8 % Normal 11.0-15.0 [facility] Comment on above: Performed By: #### P OCGLUC #### [facility] [place] [facility] [address] [address] [address] Kasia Nath Hematocrit (Bld) [Volume fraction] 35.5 % Critically low 36.0-48.0 [facility] Comment on above: Performed By: #### P OCGLUC #### [facility] [place] [facility] [address] [address] [address] Kasia Nath Hemoglobin (Bld) [Mass/Vol] 11.6 g/dL Critically low 12.0-16.0 [facility] Comment on above: Performed By: #### P OCGLUC #### [facility] [place] [facility] [address] [address] [address] Kasia Nath IG # 0.02 10e3/ul Normal 0.00-0.03 [facility] Comment on above: Performed By: #### P OCGLUC #### [facility] [place] [facility] [address] [place] [address] [address] Kasia Nath IG % 0.3 % Normal 0.0-0.5 [facility] Comment on above: Performed By: #### P OCGLUC #### [facility] [place] [facility] [address] [place] [address] [address] Kasia Nath LYMPH # 2.0 103/ul Normal 1.2-3.8 [facility] Comment on above: Performed By: #### P OCGLUC #### [facility] [place] [facility] [address] [address] [address] Kasia Nath Lymphocytes/100 WBC (Bld) 24.8 % Normal 20.5-60.0 [facility] Comment on above: Performed By: #### P OCGLUC #### [facility] [place] [facility] [address] [place] [address] [address] Kasia Nath MANUAL DIFF REQ NO Normal [facility] Comment on above: Performed By: #### P OCGLUC #### [facility] [place] [facility] [address] [address] [address] Kasia Nath MCH (RBC) [Entitic mass] 28.7 pg Normal 26.7-34.0 [facility] Comment on above: Performed By: #### P OCGLUC #### [facility] [place] [facility] [address] [address] [address] Kasia Nath MCHC (RBC) [Mass/Vol] 32.7 g/dL Normal 29.9-35.2 [facility] Comment on above: Performed By: #### P OCGLUC #### [facility] [place] [facility] [address] [address] [address] Kasia Nath MCV (RBC) [Entitic vol] 87.9 fL Normal 81.0-99.0 [facility] Comment on above: Performed By: #### P OCGLUC #### [facility] [place] [facility] [address] [address] [address] Kasia Nath MONO # 0.8 103/ul Normal 0.3-0.8 [facility] Comment on above: Performed By: #### P OCGLUC #### [facility] [address] [address] [address] Kasia Nath Monocytes/100 WBC (Bld) 9.6 % Normal 1.7-12.0 [facility] Comment on above: Performed By: #### P OCGLUC #### [facility] [address] [place] [address] Dr. Kasia Nath NEUT # 5.0 103/ul Normal 1.4-6.5 [facility] Comment on above: Performed By: #### P OCGLUC #### [facility] [address] [place] [address] Dr. Kasia Nath Neutrophils/100 WBC (Bld) 62.1 % Normal 43.0-75.0 [facility] Comment on above: Performed By: #### P OCGLUC #### [facility] [address] [place] [address] Dr. Kasia Nath Platelet mean volume (Bld) [Entitic vol] 10.7 fL Normal 9.5-13.5 [facility] Comment on above: Performed By: #### P OCGLUC #### [facility] [address] [address] [address] Kasia Nath PLT 204 103/ul Normal 150-450 [facility] Comment on above: Performed By: #### P OCGLUC #### [facility] [address] [address] [address] Kasia Nath RBC 4.04 106/ul Critically low 4.20-5.40 [facility] Comment on above: Performed By: #### P OCGLUC #### [facility] [address] [address] [address] Kasia Nath WBC 8.0 103/ul Normal 4.0-11.0 [facility] Comment on above: Performed By: #### P OCGLUC #### [facility] [address] [address] [address] Kasia Nath GLYCOHEMOGLOBIN A1Con 2022 ADA RECOMMENDATION SEE BELOW Normal [facility] Comment on above: Result Comment: ADA RECOMMENDED LIMIT 4.0 - 6.0 ADA THERAPEUTIC TARGET < 7.0 ACTION SUGGESTED > 7.0 Performed By: #### A 1C ####[facility] [address] [address]Dr. Kasia Nath Glucose [Mass/Vol] 298 mg/dL Normal [facility] Comment on above: Performed By: #### A 1C ####[facility] [address] [address]Dr. Kasia Nath HbA1c (Bld) [Mass fraction] 12.0 % Critically high 4.5-6.2 [facility] Comment on above: Performed By: #### A 1C ####[facility] [address] [place], [place] [address]Dr. Kasia Nath POINT OF CARE GLUCOSEon 12-14 Glucose [Mass/Vol] 227 mg/dL Critically high 74-106 [facility] Comment on above: Performed By: #### C BC #### [facility] [address] [address] [address] Kasia Nath Glucose [Mass/Vol] 214 mg/dL Critically high 74-106 [facility] Comment on above: Performed By: #### C BC #### [facility] [address] [address] [address] Kasia Nath PROF 14(COMP METB)on 023 Albumin [Mass/Vol] 2.6 g/dL Critically low 3.4-5.0 [facility] Comment on above: Performed By: #### B PIPE JEEPER, CMP ####[facility] [address] [place], [place] [address]Dr. Fartuncristy Portillo Albumin/Globulin [Mass ratio] 0.6 {ratio} Normal [facility] Comment on above: Performed By: #### B PIPE JEEPER, CMP ####[facility] [address] [address]Dr. Fartuncristy Portillo ALP [Catalytic activity/Vol] 94 U/L Normal 46-116 [facility] Comment on above: Performed By: #### B PIPE JEEPER, CMP ####[facility] [address] [address]Dr. Kasia Nath ALT [Catalytic activity/Vol] 16 U/L Normal 14-59 [facility] Comment on above: Performed By: #### B PIPE JEEPER, CMP ####[facility] [address] [address]Dr. Kasia Nath Anion gap [Moles/Vol] 10.6 mmol/L Normal [facility] Comment on above: Performed By: #### B PIPE JEEPER, CMP ####[facility] [address] [place], [place] [address]Dr. Kasia Nath AST [Catalytic activity/Vol] 15 U/L Normal 15-37 [facility] Comment on above: Performed By: #### B PIPE JEEPER, CMP ####[facility] [address] [address]Dr. Kasia Nath Bilirubin [Mass/Vol] 0.8 mg/dL Normal 0.2-1.0 [facility] Comment on above: Performed By: #### B PIPE JEEPER, CMP ####[facility] [address] [address]Dr. Kasia Nath Calcium [Mass/Vol] 8.5 mg/dL Normal 8.5-10.1 [facility] Comment on above: Performed By: #### B PIPE JEEPER, CMP ####[facility] [address] [address]Dr. Kasia Nath Chloride [Moles/Vol] 102 mmol/L Normal 98-107 [facility] Comment on above: Performed By: #### B PIPE JEEPER, CMP ####[facility] [address] [place], [place] [address]Dr. Kasia Nath CO2 [Moles/Vol] 30.2 mmol/L Normal 21.0-32.0 [facility] Comment on above: Performed By: #### B PIPE JEEPER, CMP ####[facility] [address] [address]Dr. Kasia Nath Creatinine [Mass/Vol] 0.94 mg/dL Normal 0.55-1.02 [facility] Comment on above: Performed By: #### B PIPE JEEPER, CMP ####[facility] [address] [address]Dr. Kasia Nath EGFR-AF ST LUCIAN >60 Normal >=60 [facility] Comment on above: Performed By: #### B PIPE JEEPER, CMP ####[facility] [address] [address]Dr. Fartuncristy Nath EGFR-NON AF ST LUCIAN 58 mL/min/1.73m2 Critically low >=60 [facility] Comment on above: Performed By: #### B PIPE JEEPER, CMP ####[facility] [address] [address]Dr. Kasia Nath Globulin (S) [Mass/Vol] 4.0 g/dL Normal [facility] Comment on above: Performed By: #### B PIPE JEEPER, CMP ####[facility] [address] [address]Dr. Kasia Nath Glucose [Mass/Vol] 150 mg/dL Critically high 74-106 [facility] Comment on above: Performed By: #### B PIPE JEEPER, CMP ####[facility] [address] [address]Dr. Kasia Nath Potassium [Moles/Vol] 3.8 mmol/L Normal 3.5-5.1 [facility] Comment on above: Performed By: #### B PIPE JEEPER, CMP ####[facility] [address] [address]Dr. Fartuncristy Nath Protein [Mass/Vol] 6.6 g/dL Normal 6.4-8.2 [facility] Comment on above: Performed By: #### B PIPE JEEPER, CMP ####[facility] [address] [id number] Kasia Nath Sodium [Moles/Vol] 139 mmol/L Normal 136-145 [facility] Comment on above: Performed By: #### B PIPE JEEPER, CMP ####[facility] [address] [id number] Kasia Nath Urea nitrogen [Mass/Vol] 24.0 mg/dL Critically high 7.0-18.0 [facility] Comment on above: Performed By: #### B PIPE JEEPER, CMP ####[facility] [address] [id number] Kasia Nath Urea nitrogen/Creatinine [Mass ratio] 25.5 mg/mg Normal [facility] Comment on above: Performed By: #### B PIPE JEEPER, CMP ####[facility] [address] [address]Dr. Kasia Nath BNPon 01-01-2023 Natriuretic peptide B (Bld) [Mass/Vol] 1419.0 pg/mL Normal <=1,800.0 [facility] Comment on above: Performed By: #### B PIPE JEEPER #### [facility] [address] [address] [address] Kasia Nath CARDIAC EMERY 3-6on 3 CK [Catalytic activity/Vol] 80 U/L Normal 26-192 [facility] Comment on above: Performed By: #### P OCGLUC #### [facility] [address] [address] [address] Kasia Nath CK.MB [Mass/Vol] 1.85 ng/mL Normal <=3.60 [facility] Comment on above: Performed By: #### P OCGLUC #### [facility] [address] [address] [address] Kasia Nath HSTROP 13.2 pg/mL Normal 4.0-51.3 [facility] Comment on above: Result Comment: CUT- OFF POINTS HAVE BEEN ESTABLISHED BASED ON THE FOURTH UNIVERSAL DEFINITIONS OF MYOCARDIAL INFARCTION. THE UPPER REFERENCE LIMIT (URL) OF TROPONIN, DEFINED THE 99TH PERCENTILE OF cTnI DISTRIBUTION IN A REFERENCE POPULATION, HAS BEEN CONFIRMED THE DECISION THRESHOLD FOR KS DIAGNOSIS. Performed By: #### P OCGLUC #### [facility] [address] [address] [address] Kasia Nath CK [Catalytic activity/Vol] 73 U/L Normal 26-192 [facility] Comment on above: Performed By: #### P OCGLUC #### [facility] [address] [address] [address] Kasia Nath CK.MB [Mass/Vol] 1.71 ng/mL Normal <=3.60 [facility] Comment on above: Performed By: #### P OCGLUC #### [facility] [address] [address] [address] Kasia Nath HSTROP 13.6 pg/mL Normal 4.0-51.3 [facility] Comment on above: Result Comment: CUT- OFF POINTS HAVE BEEN ESTABLISHED BASED ON THE FOURTH UNIVERSAL DEFINITIONS OF MYOCARDIAL INFARCTION. THE UPPER REFERENCE LIMIT (URL) OF TROPONIN, DEFINED THE 99TH PERCENTILE OF cTnI DISTRIBUTION IN A REFERENCE POPULATION, HAS BEEN CONFIRMED THE DECISION THRESHOLD FOR KS DIAGNOSIS. Performed By: #### P OCGLUC #### [facility] [address] [address] [address] Kasia Nath CARDIAC EMERY ADMITon 023 CK [Catalytic activity/Vol] 71 U/L Normal 26-192 [facility] Comment on above: Performed By: #### C BC #### [facility] [address] [address] [address] Kasia Nath CK.MB [Mass/Vol] 1.69 ng/mL Normal <=3.60 [facility] Comment on above: Performed By: #### C BC #### [facility] [address] [address] [address] Kasia Nath HSTROP 13.0 pg/mL Normal 4.0-51.3 [facility] Comment on above: Result Comment: CUT- OFF POINTS HAVE BEEN ESTABLISHED BASED ON THE FOURTH UNIVERSAL DEFINITIONS OF MYOCARDIAL INFARCTION. THE UPPER REFERENCE LIMIT (URL) OF TROPONIN, DEFINED THE 99TH PERCENTILE OF cTnI DISTRIBUTION IN A REFERENCE POPULATION, HAS BEEN CONFIRMED THE DECISION THRESHOLD FOR KS DIAGNOSIS. Performed By: #### C BC #### [facility] [address] [place] [address] Dr. Kasia Nath GRETTA 75 ng/mL Normal 9-82 [facility] Comment on above: Performed By: #### C BC #### [facility] [address] [place] [address] Dr. Kasia Nath CBC AUTO DIFFon 01-01-2023 BASO # 0.1 103/ul Normal 0.0-0.1 [facility] Comment on above: Performed By: #### C BC #### [facility] [address] [place] [address] Dr. Kasia Nath Basophils/100 WBC (Bld) 1.1 % Normal 0.2-2.0 [facility] Comment on above: Performed By: #### C BC #### [facility] [address] [place] [address] Dr. Kasia Nath EO # 0.2 103/ul Normal 0.0-0.7 [facility] Comment on above: Performed By: #### C BC #### [facility] [address] [place] [address] Dr. Kasia Nath Eosinophils/100 WBC (Bld) 2.9 % Normal 0.9-7.0 [facility] Comment on above: Performed By: #### C BC #### [facility] [address] [place] [address] Dr. Kasia Nath Erythrocyte distribution width (RBC) [Ratio] 13.8 % Normal 11.0-15.0 [facility] Comment on above: Performed By: #### C BC #### [facility] [address] [place] [address] Dr. Kasia Nath Hematocrit (Bld) [Volume fraction] 36.2 % Normal 36.0-48.0 [facility] Comment on above: Performed By: #### C BC #### [facility] [address] [place] [address] Dr. Kasia Nath Hemoglobin (Bld) [Mass/Vol] 12.1 g/dL Normal 12.0-16.0 [facility] Comment on above: Performed By: #### C BC #### [facility] [address] [address] [address] Kasia Nath IG # 0.02 10e3/ul Normal 0.00-0.03 [facility] Comment on above: Performed By: #### C BC #### [facility] [address] [address] [address] Kasia Nath IG % 0.3 % Normal 0.0-0.5 [facility] Comment on above: Performed By: #### C BC #### [facility] [address] [place] [address] Dr. Kasia Nath LYMPH # 1.5 103/ul Normal 1.2-3.8 [facility] Comment on above: Performed By: #### C BC #### [facility] [address] [place] [address] Dr. Kasia Nath Lymphocytes/100 WBC (Bld) 19.9 % Critically low 20.5-60.0 [facility] Comment on above: Performed By: #### C BC #### [facility] [address] [place] [address] Dr. Kasia Nath MANUAL DIFF REQ NO Normal [facility] Comment on above: Performed By: #### C BC #### [facility] [address] [place] [address] Dr. Kasia Nath MCH (RBC) [Entitic mass] 29.7 pg Normal 26.7-34.0 [facility] Comment on above: Performed By: #### C BC #### [facility] [address] [place] [address] Dr. Kasia Nath MCHC (RBC) [Mass/Vol] 33.4 g/dL Normal 29.9-35.2 [facility] Comment on above: Performed By: #### C BC #### [facility] [address] [place] [address] Dr. Kasia Nath MCV (RBC) [Entitic vol] 88.9 fL Normal 81.0-99.0 [facility] Comment on above: Performed By: #### C BC #### [facility] [address] [place] [address] Dr. Kasia Nath MONO # 0.6 103/ul Normal 0.3-0.8 [facility] Comment on above: Performed By: #### C BC #### [facility] [address] [place] [address] Dr. Kasia Nath Monocytes/100 WBC (Bld) 8.0 % Normal 1.7-12.0 [facility] Comment on above: Performed By: #### C BC #### [facility] [address] [place] [address] Dr. Kasia Nath NEUT # 5.1 103/ul Normal 1.4-6.5 [facility] Comment on above: Performed By: #### C BC #### [facility] [address] [place] [address] Dr. Kasia Nath Neutrophils/100 WBC (Bld) 67.8 % Normal 43.0-75.0 [facility] Comment on above: Performed By: #### C BC #### [facility] [address] [place] [address] Dr. Kasia Nath Platelet mean volume (Bld) [Entitic vol] 10.4 fL Normal 9.5-13.5 [facility] Comment on above: Performed By: #### C BC #### [facility] [address] [place] [address] Dr. Kasia Nath PLT 200 103/ul Normal 150-450 [facility] Comment on above: Performed By: #### C BC #### [facility] [address] [place] [address] Dr. Kasia Nath RBC 4.07 106/ul Critically low 4.20-5.40 [facility] Comment on above: Performed By: #### C BC #### [facility] [address] [place] [address] Dr. Kasia Nath WBC 7.5 103/ul Normal 4.0-11.0 [facility] Comment on above: Performed By: #### C BC #### [facility] [address] [place] [address] CHEST WO CONon [...] two extremes (Agatston score 101-1000). https://pubs.rsna.org /doi/abs/10.1148/radi ol.[email or web address] Electronically authenticated by: RENETTA MICHAELS Date: 2023-01-01 14:55 Normal [facility] Covid-19 PCR (CVDTBH)on 12-14 SARS-CoV-2 (COVID-19) RNA FERN+probe Ql (Unsp spec) Not detected Normal NOT DETECTED [facility] Comment on above: Result Comment: When [...] for this test is supported by the Cooler Tender of Health and Human Service's declaration that [...] longer be used). Performed By: #### C [facility] #### [facility] [address] [place] [address] Dr. Kasia Nath ECHO LIMITED STUDYon 023 ECHO LIMITED STUDY Patient: LEONA CALL Exam Date: 01/01/2023 : 1945 Gender:F Ordering : LD GUERRERO . Admission #: [id number] Family : Order #: [id number] CLICK HERE TO VIEW EXAM ECHOCARDIOGRAM REPORT [...] Kaplan M.D. on 01/01/2023 at 13:19 Normal [facility] GLYCOHEMOGLOBIN A1Con 2022 ADA RECOMMENDATION SEE BELOW Normal [facility] Comment on above: Result Comment: ADA RECOMMENDED LIMIT 4.0 - 6.0 ADA THERAPEUTIC TARGET < 7.0 ACTION SUGGESTED > 7.0 Performed By: #### P OCGLUC #### [facility] [address] [address] [address] Kasia Nath Glucose [Mass/Vol] 318 mg/dL Normal [facility] Comment on above: Performed By: #### P OCGLUC #### [facility] [address] [address] [address] Kasia Nath HbA1c (Bld) [Mass fraction] 12.7 % Critically high 4.5-6.2 [facility] Comment on above: Performed By: #### P OCGLUC #### [facility] [address] [address] [address] Kasia Nath POINT OF CARE GLUCOSEon 12-14 Glucose [Mass/Vol] 162 mg/dL Critically high 74-106 [facility] Comment on above: Performed By: #### P OCGLUC ####[facility] [address] [address]Dr. Kasia Nath Glucose [Mass/Vol] 213 mg/dL Critically high -106 [facility] Comment on above: Performed By: #### P OCGLUC ####[facility] [address] [address]Dr. Kasia Nath Glucose [Mass/Vol] 248 mg/dL Critically high 74-106 [facility] Comment on above: Performed By: #### P OCGLUC #### [facility] [address] [place] [address] Dr. Kasia Nath PROF CHEM 8 (BAS METB)on Anion gap [Moles/Vol] 11.8 mmol/L Normal [facility] Comment on above: Performed By: #### C BC #### [facility] [address] [place] [address] Dr. Kasia Nath Calcium [Mass/Vol] 8.4 mg/dL Critically low 8.5-10.1 [facility] Comment on above: Performed By: #### C BC #### [facility] [address] [place] [address] Dr. Kasia Nath Chloride [Moles/Vol] 102 mmol/L Normal 98-107 [facility] Comment on above: Performed By: #### C BC #### [facility] [address] [place] [address] Dr. Kasia Nath CO2 [Moles/Vol] 28.4 mmol/L Normal 21.0-32.0 [facility] Comment on above: Performed By: #### C BC #### [facility] [address] [place] [address] Dr. Kasia Nath Creatinine [Mass/Vol] 1.09 mg/dL Critically high 0.55-1.02 [facility] Comment on above: Performed By: #### C BC #### [facility] [address] [place] [address] Dr. Kasia Nath EGFR-AF [facility] LUCIAN 59 mL/min/1.73m2 Critically low >=60 [facility] Comment on above: Performed By: #### C BC #### [facility] [address] [place] [address] Dr. Kasia Nath EGFR-NON AF [facility] LUCIAN 49 mL/min/1.73m2 Critically low >=60 [facility] Comment on above: Performed By: #### C BC #### [facility] [address] [place] [address] Dr. Kasia Nath Glucose [Mass/Vol] 247 mg/dL Critically high 74-106 [facility] Comment on above: Performed By: #### C BC #### [facility] [address] [address] [address] Kasia Nath Potassium [Moles/Vol] 4.2 mmol/L Normal 3.5-5.1 [facility] Comment on above: Performed By: #### C BC #### [facility] [address] [address] [address] Kasia Nath Sodium [Moles/Vol] 138 mmol/L Normal 136-145 [facility] Comment on above: Performed By: #### C BC #### [facility] [address] [place] [address] Dr. Kasia Nath Urea nitrogen [Mass/Vol] 28.0 mg/dL Critically high 7.0-18.0 [facility] Comment on above: Performed By: #### C BC #### [facility] [address] [place] [address] Dr. Kasia Nath Urea nitrogen/Creatinine [Mass ratio] 25.7 mg/mg Normal [facility] Comment on above: Performed By: #### C BC #### [facility] [address] [place] [address] Dr. Kasia Nath XR CHEST 1 Von [...] by: Miranda ALVAREZ Date: 2023-01-01 05:38 Normal [facility] ECHOCARDIO M/2D COMPLETEon 1 11-15-2021 ECHOCARDIO M/2D COMPLETE Patient: JOE CALL Exam Date: 09/15/2022 : 1945 Gender:F Ordering : YAMEL MCCRACKEN [facility] Admission #: [id number] Family : DR SHANTEL STEVEN M.D. Order #: [id number] CLICK HERE TO VIEW EXAM ECHOCARDIOGRAM REPORT [...] M.D. on 09/15/2022 at 18:17 Normal [facility] GI PANEL (PCR)on 05-02-2022 Adenovirus F 40/41 Not detected Normal NOT DETECTED [facility] Comment on above: Performed By: #### P OCGLUC #### [facility] [address] [address] [address] Kasia Nath Astrovirus Not detected Normal NOT DETECTED [facility] [place] Comment on above: Performed By: #### P OCGLUC #### [facility] [address] [address] [address] Kasia Nath C. Diff toxin A/B Not detected Normal NOT DETECTED [facility] Comment on above: Performed By: #### P OCGLUC #### [facility] [address] [address] [address] Kasia Nath Campylobacter Not detected Normal NOT DETECTED [facility] Comment on above: Performed By: #### P OCGLUC #### [facility] [address] [address] [address] Kasia Nath Cryptosporidium Not detected Normal NOT DETECTED [facility] Comment on above: Performed By: #### P OCGLUC #### [facility] [address] [address] [address] Kasia Nath Cyclos. Cayetanensis Not detected Normal NOT DETECTED [facility] Comment on above: Performed By: #### P OCGLUC #### [facility] [address] [address] [address] Kasia Nath E. Coli O157 Not Applicable Normal Not Applicable The [facility] Comment on above: Performed By: #### P OCGLUC #### [facility] [address] [address] [address] Kasia Nath E. histolytica Not detected Normal NOT DETECTED The [facility] Comment on above: Performed By: #### P OCGLUC #### [facility] [address] [address] [address] Kasia Nath EAEC Not detected Normal NOT DETECTED The [place] Comment on above: Performed By: #### P OCGLUC #### [facility] [address] [place] [address] Dr. Kasia Nath EIEC Not detected Normal NOT DETECTED The [place] Comment on above: Performed By: #### P OCGLUC #### [facility] [address] [address] [address] Kasia Nath EPEC Detected Abnormal NOT DETECTED The [facility] Comment on above: Performed By: #### P OCGLUC #### [facility] [address] [place] [address] Dr. Kasia Nath ETEC Not detected Normal NOT DETECTED The [place] Comment on above: Performed By: #### P OCGLUC #### [facility] [address] [place] [address] Dr. Yilan Nath G. Lamblia Not detected Normal NOT DETECTED The [place] Comment on above: Performed By: #### P OCGLUC #### [facility] [address] [address] [address] Kasia KHAN CONTROLS PASSED Normal The [facility] Comment on above: Performed By: #### P OCGLUC #### [facility] [address] [address] [address] Kasia THOMPSON [facility] HEADER GI PANEL BACTERIA Normal T [facility] Comment on above: Performed By: #### P OCGLUC #### [facility] [address] [address] [address] Kasia GE ECOLI GI PANEL DIARRHEAGENIC E.COLI / SHIGELLA Normal [facility] Comment on above: Performed By: #### P OCGLUC #### [facility] [address] [place] [address] Dr. Kasia GE INFO SEE BELOW Normal The [facility] Comment on above: Result Comment: EAEC - Enteroaggregative E. Coli EPEC- Enteropathogenic E. Coli ETEC- Enterotoxigenic E. Coli lt/st STEC- Shigella-like toxin-producing E. Coli stx1/stx2 EIEC- Shigella/Enteroinvasive E. Coli Performed By: #### P OCGLUC #### [facility] [address] [address] [address] Kasia GE PARASITES GI PANEL PARASITES Normal The [facility] Comment on above: Performed By: #### P OCGLUC #### [facility] [address] [address] [address] Kasia GE VIRUS GI PANEL VIRUSES Normal The [facility] Comment on above: Performed By: #### P OCGLUC #### [facility] [address] [address] [address] Kasia Nath Norovirus GI/GII Not detected Normal NOT DETECTED The [facility] Comment on above: Performed By: #### P OCGLUC #### [facility] [address] [address] [address] Kasia Garland. Shigelloides Not detected Normal NOT DETECTED The [facility] Comment on above: Performed By: #### P OCGLUC #### [facility] [address] [place] [address] Dr. Kasia Nath Rotavirus A Not detected Normal NOT DETECTED The [facility] Comment on above: Performed By: #### P OCGLUC #### [facility] [address] [place] [address] Dr. Kasia Nath Salmonella Not detected Normal NOT DETECTED The [place] Comment on above: Performed By: #### P OCGLUC #### [facility] [address] [place] [address] Dr. Kasia Nath Sapovirus Not detected Normal NOT DETECTED The [place] Comment on above: Performed By: #### P OCGLUC #### [facility] [address] [place] [address] Dr. Kasia Nath STEC Not detected Normal NOT DETECTED The [place] Comment on above: Performed By: #### P OCGLUC #### [facility] [address] [place] [address] Dr. Kasia Nath Vibrio Not detected Normal NOT DETECTED The [place] Comment on above: Performed By: #### P OCGLUC #### [facility] [address] [place] [address] Dr. Kasia Nath Vibrio Cholera Not detected Normal NOT DETECTED The [facility] Comment on above: Performed By: #### P OCGLUC #### [facility] [address] [place] [address] Dr. Kasia Nath Y. Enterocolitica Not detected Normal NOT DETECTED The [facility] Comment on above: Performed By: #### P OCGLUC #### [facility] [address] [place] [address] Dr. Kasia Nath OCC BLD IMMUNO SCREENon 04-13 OCCULT BLOOD Negative Normal NEGATIVE The [facility] Comment on above: Performed By: #### C BC #### [facility] [address] [place] [address] Dr. Kasia Nath XR knee BI 4Von 08-25-2021 XR knee BI 4V [facility] [employer] Other XR knee BI 4V [facility] [employer] Other XR knee BI 4V [address] [place] [address] [employer] [place] [address] [facility] [employer] Other XR knee BI 4V XRay Report [facility] [employer] Other XR knee BI 4V Signed [employer] Other XR knee BI 4V Patient: Joe Call MR#: [id number] [place] [employer] Other XR knee BI 4V 0 [employer] Other XR knee BI 4V : 1945 Acct:[id number] [employer] Other XR knee BI 4V Age/Sex: 76 / F ADM Date: 08/25/21 [employer] Other XR knee BI 4V Loc: [facility] Room: Type : [facility] [employer] Other XR knee BI 4V Attending Dr: Akbar Cui II, MD [employer] Other XR knee BI 4V Ordering Provider: Akbar Cui MD [employer] Other XR knee BI 4V Date of Service: 08/25/21 [employer] Other XR knee BI 4V XR/XR knee BI 4V: Pain in right knee;Pain in left knee [employer] Other XR knee BI 4V Copies to: Akbar Cui MD [employer] Other XR knee BI 4V XR knee BI 4V 08/25/2021 1:32 PM [employer] Other XR knee BI 4V SIGNS AND SYMPTOMS: Bilateral knee pain with decreased range of motion, weakness [employer] Other XR knee BI 4V PROTOCOL: Frontal, lateral, and sunrise views of the bilateral knees [employer] Other XR knee BI 4V COMPARISON: None [employer] Other XR knee BI 4V FINDINGS: [employer] Other XR knee BI 4V There is mild narrowing of the medial weightbearing joint spaces. There is mild patellofemoral [employer] Other XR knee BI 4V joint space loss. There is spurring of the poles of the patella bilaterally. There is mild lateral [employer] Other XR knee BI 4V patellar subluxation bilaterally. There is no evidence of acute displaced fracture. Well-corticated [employer] Other XR knee BI 4V ossific structures o r separate from the right medial weightbearing joint space. This may represent a [employer] Other XR knee BI 4V calcified loose bodies. [employer] Other XR knee BI 4V XR/XR knee BI 4V [employer] Other XR knee BI 4V IMPRESSION: [employer] Other XR knee BI 4V Degenerative changes are noted are noted bilaterally, as above. [employer] Other XR knee BI 4V Well-corticated ossific structures or separate from the right medial weightbearing joint space. This [employer] Other XR knee BI 4V may represent a calcified loose bodies. [employer] Other XR knee BI 4V No acute displaced fracture. [employer] Other XR knee BI 4V There is mild latera l subluxation of the patella within the patellofemoral joint space bilaterally. [employer] Other XR knee BI 4V Impression dictated by: Emery Lobo M.D.08/25/2021 2:51 PM [employer] Other XR knee BI 4V Dictation Location: [facility] [employer] Other XR knee BI 4V Transcribed By: PWS 08/25/21 1451 [employer] Other XR knee BI 4V Dictated By: Emery Lobo II, MD 08/25/21 1447 [employer] Other XR knee BI 4V Signed By: [employer] Other XR knee BI 4V 08/25/21 145 [employer] [facility] [employer] Other XR pelvis 1-2Von 08-25-2021 XR pelvis 1-2V XR/XR pelvis 1-2V: Pain in right knee;Pain in left knee [employer] Other XR pelvis 1-2V XR pelvis 1-2V 08/25/2021 1:32 PM [employer] Other XR pelvis 1-2V SIGNS AND SYMPTOMS: Bilateral generalized knee pain, limited range of motion with weakness [employer] Other XR pelvis 1-2V PROTOCOL: Frontal radiograph of the pelvis [employer] Other XR pelvis 1-2V There is mild narrowing of the weightbearing joint spaces. Mild degenerative changes are noted in [employer] Other XR pelvis 1-2V the symphysis pubis. There is no evidence of fracture or dislocation. Vascular calcifications are [employer] Other XR pelvis 1-2V present in the pelvis. [employer] Other XR pelvis 1-2V XR/XR pelvis 1-2V [employer] Other XR pelvis 1-2V No fracture or dislocation. [employer] Other XR pelvis 1-2V Mild degenerative changes are noted in the joint space of the hips. [employer] Other XR pelvis 1-2V Impression dictated by: Emery Lobo M.D.08/25/2021 2:54 PM [employer] Other XR pelvis 1-2V Transcribed By: PWS 08/25/21 [facility] [employer] Other XR pelvis 1-2V Dictated By: Emery Lobo II, MD 08/25/21 [facility] [employer] Other XR pelvis 1-2V 08/25/21 [facility] [employer] Other Vital Signs Date Time Vital Sign Value Performing Clinician Facility 06-16-2024 13:08-0400 Body height 165.1 cm MD Shantel Steven Work Phone: [facility] 06-16-2024 13:08-0400 Body mass index (BMI) [Ratio] 41.9 kg/m2 MD Shantel Steven Work Phone: [facility] 06-16-2024 13:08-0400 Body weight 114.3 kg MD Shantel Steven Work Phone: [facility] 06-16-2024 13:08-0400 Diastolic blood pressure 73 mm[Hg] MD Shantel Steven Work Phone: [facility] 06-16-2024 13:08-0400 Heart rate 55 /min MD Shantel Steven Work Phone: [facility] 06-16-2024 13:08-0400 Systolic blood pressure 137 mm[Hg] MD Shantel Steven Work Phone: [facility] 06-05-2024 11:51-0400 Body height 165.1 cm MD Shantel Steven Work Phone: [facility] 06-05-2024 11:51-0400 Body mass index (BMI) [Ratio] 43.2 kg/m2 MD Shantel Steven Work Phone: [facility] 06-05-2024 11:51-0400 Body temperature 96.6 [degF] MD Shantel Steven Work Phone: [facility] 06-05-2024 11:51-0400 Body weight 117.7 kg MD Shantel Steven Work Phone: [facility] 06-05-2024 11:51-0400 Diastolic blood pressure 74 mm[Hg] MD Shantel Steven Work Phone: [facility] 06-05-2024 11:51-0400 Heart rate 63 /min MD Shantel Steven Work Phone: [facility] 06-05-2024 11:51-0400 Respiratory rate 18 /min MD Shantel Steven Work Phone: [facility] 06-05-2024 11:51-0400 SaO2% (BldA) [Mass fraction] 97 % MD Shantel Steven Work Phone: [facility] 06-05-2024 11:51-0400 Systolic blood pressure 138 mm[Hg] MD Shantel Steven Work Phone: [facility] 05-22-2024 09:18-0400 Heart rate 55 /min MD Shantel Steven Work Phone: [facility] 05-22-2024 09:09-0400 Body temperature 97.8 [degF] MD Shantel Steven Work Phone: [facility] 05-22-2024 09:09-0400 Diastolic blood pressure 64 mm[Hg] MD Shantel Steven Work Phone: [facility] 05-22-2024 09:09-0400 Respiratory rate 22 /min MD Shantel Steven Work Phone: [facility] 05-22-2024 09:09-0400 SaO2% (BldA) [Mass fraction] 94 % MD Shantel Steven Work Phone: [facility] 05-22-2024 09:09-0400 Systolic blood pressure 140 mm[Hg] MD Shantel Steven Work Phone: [facility] 05-22-2024 09:08-0400 Body height 165.1 cm MD Shantel Stevne Work Phone: [facility] 05-22-2024 09:08-0400 Body weight 117.48 kg MD Shantel Steven Work Phone: [facility] 05-19-2024 14:16-0400 Body height 165.1 cm MD Shantel Steven Work Phone: [facility] 05-19-2024 14:16-0400 Body mass index (BMI) [Ratio] 43.1 kg/m2 MD Shantel Steven Work Phone: [facility] 05-19-2024 14:16-0400 Body weight 117.48 kg MD Shantel Steven Work Phone: [facility] 05-19-2024 14:16-0400 Diastolic blood pressure 72 mm[Hg] MD Shantel Steven Work Phone: [facility] 05-19-2024 14:16-0400 Heart rate 56 /min MD Shantel Steven Work Phone: [facility] 05-19-2024 14:16-0400 Systolic blood pressure 133 mm[Hg] MD Shantel Steven Work Phone: [facility] 05-07-2024 11:52-0400 Body height 165.1 cm MD Shantel Steven Work Phone: [facility] 05-07-2024 11:52-0400 Body mass index (BMI) [Ratio] 41.5 kg/m2 MD Shantel Steven Work Phone: [facility] 05-07-2024 11:52-0400 Body temperature 98.5 [degF] MD Shantel Steven Work Phone: [facility] 05-07-2024 11:52-0400 Body weight 113.39 kg MD Shantel Steven Work Phone: [facility] 05-07-2024 11:52-0400 Diastolic blood pressure 81 mm[Hg] MD Shantel Steven Work Phone: [facility] 05-07-2024 11:52-0400 Heart rate 91 /min MD Shantel Steven Work Phone: [facility] 05-07-2024 11:52-0400 Systolic blood pressure 141 mm[Hg] MD Shantel Steven Work Phone: [facility] 04-29-2024 12:54-0400 Body height 165.1 cm MD Shantel Steven Work Phone: [facility] 04-29-2024 12:54-0400 Body mass index (BMI) [Ratio] 41.5 kg/m2 MD Shantel Steven Work Phone: [facility] 04-29-2024 12:54-0400 Body weight 113.39 kg MD Shantel Steven Work Phone: [facility] 04-29-2024 12:54-0400 Diastolic blood pressure 58 mm[Hg] MD Shantel Steven Work Phone: [facility] 04-29-2024 12:54-0400 Heart rate 54 /min MD Shantel Steven Work Phone: [facility] 04-29-2024 12:54-0400 Systolic blood pressure 90 mm[Hg] MD Shantel Steven Work Phone: [facility] 04-03-2024 11:29-0400 Body height 165.1 cm MD Shantel Steven Work Phone: [facility] 04-03-2024 11:29-0400 Body mass index (BMI) [Ratio] 43.7 kg/m2 MD Shantel Steven Work Phone: [facility] 04-03-2024 11:29-0400 Body weight 119.29 kg MD Shantel Steven Work Phone: [facility] 04-03-2024 11:29-0400 Diastolic blood pressure 71 mm[Hg] MD Shantel Steven Work Phone: [facility] 04-03-2024 11:29-0400 Heart rate 56 /min MD Shantel Steven Work Phone: [facility] 04-03-2024 11:29-0400 Systolic blood pressure 116 mm[Hg] MD Shantel Steven Work Phone: [facility] 03-25-2024 15:15-0400 Body height 165.1 cm MD Shantel Steven Work Phone: [facility] 03-25-2024 15:15-0400 Body mass index (BMI) [Ratio] 43.9 kg/m2 MD Shantel Steven Work Phone: [facility] 03-25-2024 15:15-0400 Body weight 119.74 kg MD Shantel Steven Work Phone: [facility] 03-25-2024 15:15-0400 Diastolic blood pressure 87 mm[Hg] MD Shantel Steven Work Phone: [facility] 03-25-2024 15:15-0400 Heart rate 66 /min MD Shantel Steven Work Phone: [facility] 03-25-2024 15:15-0400 Systolic blood pressure 125 mm[Hg] MD Shantel Steven Work Phone: [facility] 02-15-2024 14:18-0400 Body height 165.1 cm [facility] 02-15-2024 14:18-0400 Body mass index (BMI) [Ratio] 38.6 kg/m2 [facility] 02-15-2024 14:18-0400 Body weight 105.23 kg [facility] 02-15-2024 14:18-0400 Diastolic blood pressure 66 mm[Hg] [facility] 02-15-2024 14:18-0400 Heart rate 55 /min [facility] 02-15-2024 14:18-0400 Systolic blood pressure 114 mm[Hg] [facility] 01-18-2024 10:23-0500 Body height 165.1 cm [facility] 01-18-2024 10:23-0500 Body mass index (BMI) [Ratio] 43.2 kg/m2 [facility] 01-18-2024 10:23-0500 Body weight 117.93 kg [facility] 01-18-2024 10:23-0500 Diastolic blood pressure 70 mm[Hg] [facility] 01-18-2024 10:23-0500 Heart rate 98 /min [facility] 01-18-2024 10:23-0500 SaO2% (BldA) [Mass fraction] 65 % [facility] 01-18-2024 10:23-0500 Systolic blood pressure 110 mm[Hg] [facility] 10-23-2023 16:00-0500 Body height 165.1 cm [employer] Other [facility] [employer] Other 10-23-2023 16:00-0500 Body mass index (BMI) [Ratio] 44.63 kg/m2 [employer] Other [employer] [facility] [employer] Other 10-23-2023 16:00-0500 Body temperature 96.8 [degF] [employer]esa [employer] Other [employer] Other 10-23-2023 16:00-0500 Body weight 121.66 kg Jaleesa [employer] Other [employer] Other 10-23-2023 16:00-0500 Diastolic blood pressure 60 mm[Hg] Aziz [employer] Other [employer] Other 10-23-2023 16:00-0500 Respiratory rate 18 /min [employer] Other [employer] Other 10-23-2023 16:00-0500 SaO2% (BldA) [Mass fraction] 99 % Aziz Bakhous Other [employer] Other 10-23-2023 16:00-0500 Systolic blood pressure 124 mm[Hg] Jaleesa Vanessa Other [employer] Other 10-18-2023 13:45-0500 Body height 165.1 cm Shantel Steven Other [employer] Other 10-18-2023 13:45-0500 Body mass index (BMI) [Ratio] 44.86 kg/m2 Shantel Steven Other [employer] Other 10-18-2023 13:45-0500 Body temperature 97.3 [degF] Shantel Steven Other [employer] Other 10-18-2023 13:45-0500 Body weight 122.29 kg Shantel Steven Other [employer] Other 10-18-2023 13:45-0500 Diastolic blood pressure 84 mm[Hg] Shantel Steven Other [employer] Other 10-18-2023 13:45-0500 SaO2% (BldA) [Mass fraction] 97 % Shantel Steven Other [employer] Other 10-18-2023 13:45-0500 Systolic blood pressure 132 mm[Hg] Shantel Steven Other [employer] Other 09-04-2023 14:00-0400 Body height 165.1 cm Shantel Steven Other [employer] Other 09-04-2023 14:00-0400 Body mass index (BMI) [Ratio] 43.06 kg/m2 Shantel Steven Other [employer] Other 09-04-2023 14:00-0400 Body weight 117.39 kg Shantel Steven Other [employer] Other 09-04-2023 14:00-0400 Diastolic blood pressure 69 mm[Hg] Shantel Steven Other [employer] Other 09-04-2023 14:00-0400 Systolic blood pressure 127 mm[Hg] Shantel Steven Other [employer] Other 07-17-2023 10:00-0400 Body height 165.1 cm Shantel Steven Other [employer] Other 07-17-2023 10:00-0400 Body mass index (BMI) [Ratio] 43.03 kg/m2 Shantel Steven Other [employer] Other 07-17-2023 10:00-0400 Body weight 117.3 kg Shantel Steven Other [employer] Other 07-17-2023 10:00-0400 Diastolic blood pressure 76 mm[Hg] Shantel Steven Other [employer] Other 07-17-2023 10:00-0400 Systolic blood pressure 164 mm[Hg] Shantel Steven Other [employer] Other 04-30-2023 14:30-0400 Body height 165.1 cm Shantel Steven Other [employer] Other 04-30-2023 14:30-0400 Body mass index (BMI) [Ratio] 43.43 kg/m2 Shantel Steven Other [employer] Other 04-30-2023 14:30-0400 Body weight 118.39 kg Shantel Steven Other [employer] Other 04-30-2023 14:30-0400 Diastolic blood pressure 75 mm[Hg] Shantel Steven Other [employer] Other 04-30-2023 14:30-0400 Systolic blood pressure 135 mm[Hg] Shantel Steven Other [employer] Other 03-09-2023 12:15-0400 Body height 165.1 cm Shantel Steven Other [employer] Other 03-09-2023 12:15-0400 Body mass index (BMI) [Ratio] 43.59 kg/m2 Shantel Steven Other [employer] Other 03-09-2023 12:15-0400 Body weight 118.84 kg Shantel Steven Other [employer] Other 03-09-2023 12:15-0400 Diastolic blood pressure 82 mm[Hg] Shantel Steven Other [employer] Other 03-09-2023 12:15-0400 SaO2% (BldA) [Mass fraction] 97 % Shantel Steven Other [employer] Other 03-09-2023 12:15-0400 Systolic blood pressure 130 mm[Hg] Shantel Steven Other [employer] Other 02-20-2023 10:00-0400 Body height 165.1 cm Shantel Steven Other [employer] Other 02-20-2023 10:00-0400 Body mass index (BMI) [Ratio] 41.93 kg/m2 Shantel Steven Other [employer] Other 02-20-2023 10:00-0400 Body weight 114.31 kg Shantel Steven Other [employer] Other 02-20-2023 10:00-0400 Diastolic blood pressure 84 mm[Hg] Shantel Steven Other [employer] Other 02-20-2023 10:00-0400 Systolic blood pressure 132 mm[Hg] Shantel Steven Other [employer] Other 08-04-2022 13:33-0400 Blood Pressure Location [facility] [place] 08-04-2022 13:33-0400 Diastolic blood pressure 88 mm[Hg] Bin NILL [facility] [place] 08-04-2022 13:33-0400 Heart rate 76 /min Bin [facility] 08-04-2022 13:33-0400 Respiratory rate 16 /min Bin NILL [facility] [place] 08-04-2022 13:33-0400 Systolic blood pressure 130 mm[Hg] Bin N[facility] 08-25-2021 14:30-0400 Body height 165.1 cm Akbar Cui II Other [employer] Other 08-25-2021 14:30-0400 Body mass index (BMI) [Ratio] 43.26 kg/m2 Akbar Cui II Other [employer] Other 08-25-2021 14:30-0400 Body weight 117.94 kg Akbar Cui II Other [employer] Other Encounters Encounter Date Encounter Type Care Provider Facility Start: 06-25-2024 ambulatory MD Shantel gray Work Phone: [facility] Work Phone: Start: 06-25-2024 Non-patient / Non-visit MD Alessia Steven Work Phone: [facility] Work Phone: Start: 06-24-2024 Non-patient / Non-visit MD Alessia Steven Work Phone: [facility] Work Phone: Start: 06-18-2024 End: 06-18-2024 ambulatory [facility] Start: 06-16-2024 End: 06-16-2024 ambulatory MD Shantel Steven Work Phone: [facility] Work Phone: Start: 06-16-2024 End: 06-16-2024 Patient encounter procedure MD Shantel Steven Work Phone: [facility] Work Phone: Start: 06-16-2024 End: 06-16-2024 MD Shantel Steven Work Phone: [facility] Work Phone: Start: 06-10-2024 Non-patient / Non-visit MD Alessia Steven Work Phone: [facility] Work Phone: Start: 06-10-2024 MD Shantel painting Work Phone: [facility] Work Phone: Start: 06-09-2024 Non-patient / Non-visit MD Alessia Steven Work Phone: [facility] Work Phone: Start: 06-09-2024 MD Shantel painting Work Phone: [facility] Work Phone: Start: 06-05-2024 End: 06-05-2024 ambulatory MD Shantel Steven Work Phone: [facility] Work Phone: Start: 06-05-2024 End: 06-05-2024 Patient encounter procedure MD Shantel Steven Work Phone: [facility] Work Phone: Start: 06-05-2024 End: 06-05-2024 MD Shantel Steven Work Phone: [facility] Work Phone: Start: 06-01-2024 Non-patient / Non-visit MD Alessia Steven Work Phone: [facility] Work Phone: Start: 06-01-2024 MD Shantel painting Work Phone: [facility] Work Phone: Start: 05-26-2024 Non-patient / Non-visit MD Alessia Steven Work Phone: [facility] Work Phone: Start: 05-26-2024 MD Shantel painting Work Phone: [facility] Work Phone: Start: 05-22-2024 End: 05-22-2024 Emergency department patient visit MD Shantel Steven Work Phone: [facility] Work Phone: Start: 05-22-2024 End: 05-22-2024 MD Shantel Steven Work Phone: [facility] Work Phone: Start: 05-20-2024 Non-patient / Non-visit MD Alessia Steven Work Phone: [facility] Work Phone: Start: 05-20-2024 MD Shantel painting Work Phone: [facility] Work Phone: Start: 05-20-2024 End: 05-20-[address] [facility] Start: 05-19-2024 End: 05-19-2024 ambulatory MD Shantel Steven Work Phone: [facility] Work Phone: Start: 05-19-2024 End: 05-19-2024 Patient encounter procedure MD Shantel Steven Work Phone: [facility] Work Phone: Start: 05-19-2024 End: 05-19-2024 MD Shantel Steven Work Phone: [facility]ician [facility] Work Phone: Start: 05-07-2024 End: 05-07-2024 ambulatory MD Shantel Steven Work Phone: [facility] Work Phone: Start: 05-07-2024 End: 05-07-2024 Patient encounter procedure MD Shantel Steven Work Phone: [facility] Work Phone: Start: 05-07-2024 End: 05-07-2024 MD Shantel Steven Work Phone: [facility] Work Phone: Start: 05-06-2024 Non-patient / Non-visit MD Alessia Steven Work Phone: [facility] Work Phone: Start: 05-06-2024 MD Shantel painting Work Phone: [facility] Work Phone: Start: 05-05-2024 Non-patient / Non-visit MD Alessia Steven Work Phone: [facility] Work Phone: Start: 05-05-2024 MD Shantel painting Work Phone: [facility] Work Phone: Start: 05-04-2024 Non-patient / Non-visit MD Alessia Steven Work Phone: [facility] Work Phone: Start: 05-04-2024 MD Shantel painting Work Phone: [facility] Work Phone: Start: 05-02-2024 Non-patient / Non-visit MD Alessia Steven Work Phone: [facility] Work Phone: Start: 05-02-2024 MD Shantel painting Work Phone: [facility] Work Phone: Start: 05-01-2024 Non-patient / Non-visit MD Alessia Steven Work Phone: [facility] Work Phone: Start: 05-01-2024 MD Shantel painting Work Phone: [facility] Work Phone: Start: 04-30-2024 Non-patient / Non-visit MD Alessia Steven Work Phone: [facility] Work Phone: Start: 04-30-2024 MD Shantel painting Work Phone: [facility] Work Phone: Start: 04-29-2024 End: 04-29-2024 Patient encounter procedure MD Shantel Steven Work Phone: [facility] Work Phone: Start: 04-29-2024 End: 04-29-2024 MD Shantel Steven Work Phone: [facility] Work Phone: Start: 04-03-2024 End: 04-03-2024 ambulatory MD Shantel Steven Work Phone: [facility] Work Phone: Start: 04-03-2024 End: 04-03-2024 Patient encounter procedure MD Shantel Steven Work Phone: [facility] Work Phone: Start: 04-03-2024 End: 04-03-2024 MD Shantel Steven Work Phone: [facility] Work Phone: Start: 04-01-2024 Non-patient / Non-visit MD Alessia Steven Work Phone: [facility] Work Phone: Start: 04-01-2024 MD Shantel painting Work Phone: [facility] Work Phone: Start: 03-31-2024 Non-patient / Non-visit MD Alessia Steven Work Phone: [facility] Work Phone: Start: 03-31-2024 MD Shantel painting Work Phone: [facility] Work Phone: Start: 03-28-2024 Non-patient / Non-visit MD Alessia Steven Work Phone: [facility] Work Phone: Start: 03-28-2024 MD Shantel painting Work Phone: [facility] Work Phone: Start: 03-27-2024 Non-patient / Non-visit MD Alessia Steven Work Phone: [facility] Work Phone: Start: 03-27-2024 MD Shantel painting Work Phone: [facility] Work Phone: Start: 03-26-2024 Non-patient / Non-visit MD Alessia Steven Work Phone: [facility] Work Phone: Start: 03-26-2024 MD Shantel painting Work Phone: [facility] Work Phone: Start: 03-25-2024 End: 03-25-2024 Patient encounter procedure MD Shantel Steven Work Phone: [facility] Work Phone: Start: 03-25-2024 End: 03-25-2024 MD Shantel Steven Work Phone: [facility] Work Phone: Start: 03-13-2024 End: 03-13-2024 Patient encounter procedure MD Shantel Steven Work Phone: [facility] [address] Work Phone: Start: 03-13-2024 End: 03-13-2024 ambulatory MD Shantel Steven Work Phone: [facility] Work Phone: Start: 03-07-2024 End: 03-07-2024 ambulatory [facility] Start: 02-19-2024 ambulatory Facility:[facility] Start: 02-15-2024 End: 02-15-2024 ambulatory [facility] Work Phone: Start: 02-15-2024 End: 02-15-2024 Patient encounter procedure [facility] Work Phone: Start: 01-29-2024 Non-patient / Non-visit [facility] Work Phone: Start: 01-24-2024 Non-patient / Non-visit [facility] Work Phone: Start: 01-22-2024 Non-patient / Non-visit [facility] Work Phone: Start: 01-18-2024 End: 01-18-2024 Patient encounter procedure [facility] Work Phone: Start: 01-15-2024 Non-patient / Non-visit [facility] Work Phone: Start: 01-04-2024 Non-patient / Non-visit [facility] Work Phone: Start: 12-18-2023 End: 12-18-2023 ambulatory Shantel Steven Other [employer] Other Start: 12-18-2023 Telephone encounter Shantel Steven [facility] Start: 11-19-2023 End: 11-19-2023 ambulatory Shantel Steven Other [employer] Other Start: 11-19-2023 Telephone encounter Shantel Steven [facility] Start: 10-23-2023 End: 10-23-2023 ambulatory Jaleesa Vanessa Other [employer] Other Start: 10-23-2023 Office outpatient ne w 30 minutes Jaleesa Vanessa [facility] Start: 10-22-2023 End: 10-22-2023 ambulatory Shantel Steven Other [employer] Other Start: 10-22-2023 Telephone encounter Shantel Steven [facility] Start: 10-18-2023 End: 10-18-2023 ambulatory Shantel Steven Other [employer] Other Start: 10-18-2023 Office outpatient vi sit 15 minutes Shantel Steven [facility] Start: 09-07-2023 End: 09-07-2023 ambulatory Shantel Steven Other [employer] Other Start: 09-07-2023 Telephone encounter Shantel Steven [facility] Start: 09-04-2023 End: 09-04-2023 ambulatory Shantel Steven Other [employer] Other Start: 09-04-2023 Office outpatient vi sit 25 minutes Shantel Steven [facility] Start: 08-23-2023 End: 08-23-2023 ambulatory Shantel Steven Other [employer] Other Start: 08-23-2023 Telephone encounter Shantel Steven [facility] Start: 08-17-2023 End: 08-17-2023 ambulatory [facility] Start: 07-23-2023 Telephone encounter Shantel Steven [facility] Start: 07-23-2023 End: 07-23-2023 ambulatory [facility] [employer] Other Start: 07-17-2023 End: 07-17-2023 ambulatory Shantel Steven Other [employer] Other Start: 07-17-2023 Office outpatient vi sit 25 minutes Shantel Steven [facility] Start: 05-30-2023 End: 05-30-2023 ambulatory Shantel Steven Other [employer] Other Start: 05-30-2023 Telephone encounter Shantel Steven [facility] Start: 05-22-2023 End: 05-22-2023 ambulatory Shantel Steven Other [employer] Other Start: 05-22-2023 Telephone encounter Shantel Steven [facility] Start: 05-16-2023 End: 05-16-2023 ambulatory Shantel Steven Other [employer] Other Start: 05-16-2023 Telephone encounter Shantel Steven [facility] Start: 05-07-2023 End: 05-07-2023 ambulatory Shantel Steven Other [employer] Other Start: 05-07-2023 Telephone encounter Shantel Steven [facility] Start: 04-30-2023 End: 04-30-2023 ambulatory Shantel Steven Other [employer] Other Start: 04-30-2023 Office outpatient vi sit 25 minutes Shantel Steven [facility] Start: 04-25-2023 End: 04-25-2023 ambulatory Shantel Steven Other [employer] Other Start: 04-25-2023 Telephone encounter Shantel Steven [facility] Start: 04-12-2023 End: 04-12-2023 ambulatory Shantel Steven Other [employer] Other Start: 04-12-2023 Telephone encounter Shantel Steven [facility] Start: 03-09-2023 End: 03-09-2023 ambulatory Shantel Steven Other [employer] Other Start: 03-09-2023 Office outpatient vi sit 15 minutes Shantel Steven [facility] Start: 03-07-2023 End: 03-07-2023 ambulatory Shantel Steven Other [employer] Other Start: 03-07-2023 Telephone encounter Shantel Steven [facility] Start: 03-06-2023 End: 03-06-[address] SHANTEL STEVEN Facility:[facility] Start: 03-05-2023 End: 03-05-2023 ambulatory Shantel Steven Other [employer] Other Start: 03-05-2023 Telephone encounter Shantel Steven [facility] Start: 02-26-2023 End: 02-26-2023 ambulatory Shantel Steven Other [employer] Other Start: 02-26-2023 Telephone encounter Shantel Steven [facility] Start: 02-24-2023 End: 02-24-[address] SHANTEL STEVEN Facility:[facility] Start: 02-23-2023 End: 02-23-2023 ambulatory Shantel Steven Other [employer] Other Start: 02-23-2023 Telephone encounter Shantel Steven [facility] Start: 02-20-2023 End: 02-20-2023 ambulatory Shantel Steven Other [employer] Other Start: 02-20-2023 Transitional care luz cabral [facility] 14 day discharge Shantel Steven [facility] Start: 02-16-2023 End: 02-16-2023 ambulatory Shantel Steven Other [employer] Other Start: 02-16-2023 Telephone encounter Shantel Steven [facility] Start: 02-13-2023 End: 02-14-[address] SHANTEL STEVEN Facility:[facility] Start: 02-02-2023 End: 02-02-2023 ambulatory Shantel Steven Other [employer] Other Start: 02-02-2023 Telephone encounter Shantel Steven [facility] Start: 01-16-2023 End: 01-17-[address] DOCTOR CARMONA Facility:[facility] Start: 01-05-2023 End: 01-05-2023 ambulatory BIN ROJAS Facility:[facility] Start: 01-01-2023 End: 01-02-2023 ambulatory ANALISA ISABELL Facility:[facility] Start: 11-29-2022 End: 11-29-2022 ambulatory Shantel Steven Other [employer] Other Start: 11-29-2022 Telephone encounter Shantel Steven [facility] Start: 11-27-2022 End: 11-27-2022 ambulatory Shantel Steven Other [employer] Other Start: 11-27-2022 Telephone encounter Shantel Steven [facility] Start: 11-24-2022 End: 11-24-2022 ambulatory Shantel Steven Other [employer] Other Start: 11-24-2022 Telephone encounter Shantel Steven [facility] Start: 11-06-2022 ambulatory YAMEL MCCRACKEN Facility :[facility] Start: 09-15-2022 End: 09-16-[address] SHANTEL STEVEN Facility:[facility] Start: 08-04-2022 End: 08-04-2022 Patient encounter procedure Bin SORENSON General Surgery Lauren/Adenike Becker Start: 05-02-2022 End: 05-02-[address] SHANTEL STEVEN Facility:[facility] Start: 08-25-2021 Office outpatient ne w 45 minutes Akbar Cui II [facility] Start: 08-09-2017 End: 08-12-2017 Ambulatory PROVIDER UNKNOWN Facility:[facility] Procedures Date Procedure Procedure Detail Performing Clinician Start: 05-04-2024 Bacteria identified in Urine by Culture MD Shantel Steven Work Phone: Start: 05-04-2024 Blood Culture 1 MD Shantel Steven Work Phone: Start: 05-04-2024 MD Shantel Steven Work Phone: Start: 03-13-2024 [...] Treatment Date Care Activity Detail Author Start: 06-25-2024 Patient referral [facility] Work Phone: Start: 06-16-2024 Patient referral [facility] Work Phone: Start: 05-07-2024 Patient referral [facility] Work Phone: Start: 05-04-2024 Blood Culture 1 Blood Culture 1 [facility] Start: 02-15-2024 Patient referral [facility] Work Phone: Comprehensive metabo lic 2000 panel - Serum or Plasma [facility] CT Abdomen and Pelvi s WO contrast [facility] Microalbumin [Mass/v olume] in Urine [facility] Patient referral [facility] Work Phone: Renal function 2000 panel - Serum or Plasma [facility] Immunizations Immunization Date Immunization Notes Care Provider Lauro yung 01-18-2024 Pneumococcal Conjugate Vaccine, 20 valent [facility] 09-04-2023 influenza, high dose seasonal, preservative-free Shantel Steven Other [employer] [facility] [employer] Other 09-04-2023 influenza virus vaccine, unspecified formulation [facility] 02-04-2021 COVID-19 mRNA, Comirnaty (Pfizer) [facility] 01-21-2021 COVID-19 mRNA, Comirnaty (Pfizer) [facility] 10-09-2018 influenza virus vaccine, split virus (incl. purified surface antigen) Shantel Steven Other [employer] [facility] [employer] Other 10-09-2018 influenza virus vaccine, unspecified formulation [facility] NEGATED: Highlighted row has not occurred!08-21-2019 influenza virus vaccine, split virus (incl. purified surface antigen) Shantel Steven Other [employer] Other Payers Date Payer Category Payer Self-pay [id number] 1958 Medicare [id number] 1958 Self-pay [id number] 1945 Unknown [id number] 2.16.84 [id number] 1945 Unknown [id number] 2.16.84 [id number] 1945 Unknown [id number] 2.16.84 [id number] 1945 Unknown [id number] 2.16.84 [id number] 1945 Unknown [id number] 2.16.84 [id number] 1945 Unknown [id number] 2.16.84 [id number] 1945 Unknown [id number] 2.16.84 [id number] 1945 Unknown [id number] 2.16.84 [id number] 1945 Unknown [id number] 2.16.84 [id number] Unknown Unknown [id number] 2.16.8 [id number] Unknown [id number] 2.16.8 [id number] Social History Date Type Detail Facility Sex Assigned At [facility] [employer] Other Start: 08-04-2022 End: 06-05-2024 Tobacco smoking status Ex-smoker (finding) General Surgery [facility] Tobacco smoking status Never Gener al Surgery [place] Start: 1945 Sex Assigned At Female F [facility] Medical Equipment Procedure Code Equipment Code Equipment Origin al Text Equipment Identifier Dates Blood Sugar Diagnostic (True Metrix Glucose Test Strip) strip Start: 03-31-2024 Pen Needle, Diab etic (Comfort Ez Pen Gould) 33 gauge x 5/32 needle Start: 03-25-2024 Blood Sugar Diagnostic (True Metrix Glucose Test Strip) strip Start: 03-31-2024 End: 03-31-2024 Blood Sugar Diagnostic (True Metrix Glucose Test Strip) strip Start: 03-31-2024 Pen Needle, Diab etic (Comfort Ez Pen Gould) 33 gauge x 5/32 needle Start: 03-25-2024 Blood Sugar Diagnostic (True Metrix Glucose Test Strip) strip Start: 03-31-2024 End: 03-31-2024 Blood Sugar Diagnostic (True Metrix Glucose Test Strip) strip Start: 03-31-2024 Pen Needle, Diab etic (Comfort Ez Pen Gould) 33 gauge x 5/32 needle Start: 03-25-2024 Blood Sugar Diagnostic (True Metrix Glucose Test Strip) strip Start: 03-31-2024 End: 03-31-2024 Blood Sugar Diagnostic (True Metrix Glucose Test Strip) strip Start: 03-31-2024 Pen Needle, Diab etic (Comfort Ez Pen Gould) 33 gauge x 5/32 needle Start: 03-25-2024 Blood Sugar Diagnostic (True Metrix Glucose Test Strip) strip Start: 03-31-2024 End: 03-31-2024 Blood Sugar Diagnostic (True Metrix Glucose Test Strip) strip Start: 03-31-2024 Pen Needle, Diab etic (Comfort Ez Pen Gould) 33 gauge x 5/32 needle Start: 03-25-2024 Blood Sugar Diagnostic (True Metrix Glucose Test Strip) strip Start: 03-31-2024 End: 03-31-2024 Blood Sugar Diagnostic (True Metrix Glucose Test Strip) strip Start: 03-31-2024 Pen Needle, Diab etic (Comfort Ez Pen Gould) 33 gauge x 5/32 needle Start: 03-25-2024 Blood Sugar Diagnostic (True Metrix Glucose Test Strip) strip Start: 03-31-2024 End: 03-31-2024 Functional Status Date Assessment Result Facility 08-04-2022 Functional Status N/A General [facility] Clinical Notes 08-25-2021 to 06-18-2024 Note Date & Type Note Facility 06-18-2024 Note [facility] - [facility] Subjective Joe Call is a 78 y.o. year old female patient being seen for 1 mo follow up acute on chronic diastolic heart failure, CAD, and CARMELO. She's presented to [facility] ED several times over the past month. Most recently discharged on 06/10/2024 for CHF. She is back on lasix. Denies chest pain, palpitations, and bleeding on Xarelto. She is SOB w/ rest and says it goes away once she gets up and starts moving around. Patient Active Problem List Diagnosis Aortic valve [...] Atrial fibrillation (CMS/HCC) Paroxysmal atrial fibrillation (CMS/HCC) Abdominal swelling, generalized Acute on chronic diastolic CHF (congestive heart failure) (CMS/HCC) Anxiety Back pain with history of spinal surgery Cervical disc disease Chalazion of right eye Dyspnea Hordeolum externum (stye) Immunization due Lactose intolerance residential (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 insulin (CMS/HCC) Lumbar degenerative disc disease Lumbar spondylosis Lymph edema Macular degeneration Memory changes Osteoarthritis Secondary hyperparathyroidism (CMS/HCC) Stress incontinence of urine Thrush of mouth and esophagus (CMS/HCC) Urinary incontinence UTI (urinary tract infection) Yeast cystitis CARMELO (acute kidney injury) (CMS/HCC) Tremor Family History Problem Relation Name Age of [...] December 2022 she was admitted to the [facility] with decompensated diastolic heart failure, she was treated with diuretic therapy. In February 2023 she was admitted to [facility] with dehydration secondary to acute gastroenteritis. She also had acute kidney injury in that setting. She has history of breast cancer more than 25 years ago s/p mastectomy, chemo and radiation therapy. She has lymphedema in the left arm. In the past she saw a phone technician for bleeding behind the eye . she continues to follow with them. We previously discussed left atrial appendage closure as an alternative to anticoagulation therapy but she did not want to proceed with it. She has had a lot of balance issues, uses a walker to ambulate and has had about 10 falls in the past year. In April 2024 she was admitted to the [facility] with increasing weakness and altered mental status. She also had acute renal insufficiency. She had UTI secondary to E. coli. She was admitted again to the [facility] on 06/09/2020 for with acute on chronic diastolic heart failure and underwent IV diuretic therapy. Today she reports that she has been doing relatively well except that she started having some shortness of breath NYHA class II-III symptoms and lower extremity edema. She denies chest pain, dizziness or lightheadedness. Her blood pressure is elevated today but she has not taken her medications yet. Review of Systems Cardiovascular: Positive for leg swelling (feet). Respiratory: Positive for shortness of breath. Musculoskeletal: Positive for muscle weakness. Neurological: Positive for tremors. All other systems reviewed and are negative. Objective Visit Vitals BP 156/78 (BP Location: Right wrist, Patient Position: Sitting) Pulse 73 Ht 1.626 m (5' 4 ) Wt 118 kg (260 lb) SpO2 98% BMI 44.63 kg/m??? Smoking Status Former BSA 2.31 m??? Physical Exam Constitutional: Appearance: She is well-develo (more content not included)... [facility] 05-20-2024 Note BMP today to assess renal function and electrolytes [facility] 05-20-2024 Note Heart failure is unc hanged. NYHA Class II. Continue current treatment regimen. Dietary sodium restriction. Encouraged daily monitoring of the patient's weight. Continue current medications. Heart failure will be reassessed in 1 month. BMP to assess renal function and electrolytes today to see if can uptitrate GDMT- in light Lasix, lisinopril and aldactone on hold from recent hospitalization [facility] 05-20-2024 Note Coronary artery dise ase is unchanged. Continue current medications. Continue GDMT- lipitor, metoprolol continue risk factor modifications- heart healthy diet, regular exercise as tolerated and continue all medications. [facility] 05-20-2024 Note Lipid abnormalities are unchanged. Pharmacotherapy as ordered. Continue lipitor [facility] 05-20-2024 Note [facility] CARDIOLOGY PROGR ESS NOTE HPI: Joe Call is a 78 y.o. female here for hospital F/U HPI: Patient here for follow up [facility] for renal failure. She was also discharged back in March 2024 for CHF. Lisinopril, spironolactone, and furosemide were stopped during one of the admissions. She denies chest pain, SOB, and LE edema. Denies lightheadedness, syncope, and bleeding on Xarelto. Feels much better s/p hospital stay. Palpitations are no more than usual for her. She will be seeing her dermatology physician assistant (Dr. Rapp) on 06/05/2024. Currently weight is reduced from previous 264 and today 259 pounds. States that she walks daily at home, and walks up to a half mile in the house. Review of Systems Cardiovascular: Positive for palpitations. Musculoskeletal: Positive for muscle weakness. All other systems reviewed and are negative. 05/04/24 Discharge Summary Hospital Course: Patient was admitted with increasing weakness and altered mental status. Her mentation improved after the first day. This was felt to be multifactorial with acute renal failure with creatinine 200% above baseline, that is improving at the time of discharge she also had acute UTI secondary to E. coli. Sensitive to current antibiotic regiment. Although she is not back to baseline she is much improved. She feels stable for going home today. Will discharge patient to home, continue hold off on lisinopril and diuretics, blood pressure here is excellent have her follow-up with her PCP early in this week. For close follow-up on blood pressure. 05/01/24 DS: Summary Hospital Course Hospital Course: The patient was admitted with acute dehydration, acute renal failure, and associated mild hyperkalemia thought to be secondary to overdiuresis. All renal toxic medications including lisinopril, Lasix, and spironolactone were held and she was given gentle IV fluids. Her renal function slowly improved during her stay. Her renal labs are not quite back to baseline but are significantly improved and the patient feels clinically better and is asking to be discharged. Her potassium level is nearly normal at the time of discharge and we expect it to continue to drop as the patient is holding her spironolactone. The patient is being discharged home in stable condition with instructions to hold her Lasix and spironolactone for 3 more days until her follow-up appointment with her PCP on 05/05/2024 where they can discuss what doses of these medications should be resumed. She should push fluids over the weekend, especially since it is so hot, in order to maintain hydration and continue to flush her kidneys. We recommend a repeat BMP per the PCP to continue to monitor her renal function. In addition, her PCP could consider as needed Lasix dosing in addition to her scheduled Lasix. The patient has been instructed to start weighing herself daily next week and to contact her PCP if she gains more than 3 pounds in a day or 5 pounds per week. Previous HPI per Dr Rosaura OTERO Joe is seen in follow up and [...] December 2022 she was admitted to the [facility] with decompensated diastolic heart failure, she was treated with diuretic therapy. In February 2023 she was admitted to [facility] with dehydration secondary to acute gastroenteritis. She also had acute kidney injury in that setting. She has history of breast cancer more than 25 years ago s/p mastectomy, chemo and radiation therapy. She has lymphedema in the left arm. In the past she saw a phone technician for bleeding behind the eye . she [...] orthopnea, palpitations, paroxysmal nocturnal dyspnea and syncope. Visit Vitals BP 155/68 (BP Location: Right wrist, Patient Position: Sitting) Pulse 53 Ht 1.626 m (5' 4 ) Wt 117 kg (259 lb) SpO2 96% BMI 44.46 kg/m??? Smoking Status Former BSA 2.3 m??? Allergie (more content not included)... [facility] 05-20-2024 Note Patient here for [facility] for renal failure. She was also discharged back in March 2024 for CHF. Lisinopril, spironolactone, and furosemide were stopped during one of the admissions. She denies chest pain, SOB, and LE edema. Denies lightheadedness, syncope, and bleeding on Xarelto. Feels much better s/p hospital stay. Palpitations are no more than usual for her. She will be seeing her dermatology physician assistant (Dr. Rapp) on 06/05/2024. Review of Systems Cardiovascular: Positive for palpitations. Musculoskeletal: Positive for muscle weakness. All other systems reviewed and are negative. [facility] 03-07-2024 Note [facility] Cardiology - [facility] Subjective Joe Call is a 78 [...] December 2022 she was admitted to the [facility] with decompensated diastolic heart failure, she was treated with diuretic therapy. In February 2023 she was admitted to [facility] with dehydration secondary to acute gastroenteritis. She also had acute kidney injury in that setting. She has history of breast cancer more than 25 years ago s/p mastectomy, chemo and radiation therapy. She has lymphedema in the left arm. In the past she saw a phone technician for bleeding behind the eye . she [...] TIMES DAILY NEEDED (more content not included)... [facility] 02-15-2024 Hospital Discharge instructions Ambulatory OrdersReferral to Urology Time Frame: 02/15/24, Location: None [facility] Work Phone: 11-19-2023 Evaluation note Encounter Date Diagnosis Assessment Notes Nov, Lumbar degenerative disc disease (ICD-10 - M51.36) [facility] [employer] Other [id number] Evaluation note* Encounter Date Diagnosis Assessment Notes [...] will check vitamin B12 level next visit [employer] Other 12-11-2023 Evaluation note* Encounter Date Diagnosis Assessment Notes Treatment Notes Treatment Clinical Notes Oct, Lumbar degenerative disc disease (ICD-10 - M51.36) [employer] Other 12-07-2023 Evaluation note* Encounter Date Diagnosis Assessment Notes Treatment Notes Treatment Clinical Notes Oct, Bronchitis (ICD-10 - J40) Finish meds. No acute need for antibiotic at this time Oct, Diabetes mellitus with chronic kidney disease (ICD-10 - E11.22) Due for labs, followup w Dr. Mcconnell Oct, Lumbar degenerative disc disease (ICD-10 - M51.36) Pt will contact neurosurgery. [employer] Other 10-27-2023 Evaluation note* Encounter Date Diagnosis Assessment Notes Treatment Notes Treatment Clinical Notes Aug, Chronic kidney disease, stage 4 (severe) (ICD-10 - N18.4) [employer] Other 10-24-2023 Evaluation note* Encounter Date Diagnosis [...] (ICD-10 - M51.36) Pt requests referral to [facility]. Reviewed OARRS report. Aug, Stress incontinence of urine (ICD-10 - N39.3) R/o infection. Discussed could be related to her diabetes med as well. [employer] Other 10-12-2023 Evaluation note* Encounter Date Diagnosis Assessment Notes Treatment Notes Treatment Clinical Notes Aug, Lumbar degenerative disc disease (ICD-10 - M51.36) [employer] Other 10-06-2023 NoteCardiology Clinic Note Subjective Joe Call is [...] In February 2023 she was admitted to [facility] with dehydration secondary to acute gastroenteritis. She also had acute kidney injury in that setting. She has history of breast cancer more than 25 years ago s/p mastectomy, chemo and radiation therapy. She has lymphedema in the left arm. She has been doing well. No chest pain. No dyspnea. No palpitations. She reports that she is seeing a phone technician for bleeding behind the eye . She has had a lot of balance issues, uses a walker to ambulate and has had about 10 falls in the past year. Update: 07/23/2023 She was admitted to [facility] 07/08-07/10/2023 for decompensated HFpEF She was [...] with questions Was prescribed Farxiga by her shoeshiner but did not start after reading about [...] DAYS, Disp: , Rfl (more content not included)...[facility] NotePatient here for 1 mo follow up CAD, chronic diastolic heart failure, and PAF. Follow up labs have not been completed yet. Her shoeshiner recently started her on Farxiga but she [...] light-headedness. All other systems reviewed and are negative.[facility]* Encounter Date Diagnosis Assessment Notes Treatment Notes Treatment Clinical Notes Jul, Lumbar degenerative disc disease (ICD-10 - M51.36) [employer] Other 09-11-2023 NotePatient here for follow up [facility] for CHF. She was seen as [...] weakness. All other systems reviewed and are negative.[facility] 07-23-2023 NoteCardiology Clinic Note Subjective Joe Call is [...] In February 2023 she was admitted to [facility] with dehydration secondary to acute gastroenteritis. She also had acute kidney injury in that setting. She has history of breast cancer more than 25 years ago s/p mastectomy, chemo and radiation therapy. She has lymphedema in the left arm. She has been doing well. No chest pain. No dyspnea. No palpitations. She reports that she is seeing a phone technician for bleeding behind the eye . She has had a lot of balance issues, uses a walker to ambulate and has had about 10 falls in the past year. Update: 07/23/2023 She was admitted to [facility] 07/08-07/10/2023 for decompensated HFpEF She was [...] time each day., Disp: (more content not included)...[facility]09-05[facility]2023 Evaluation note* Encounter Date Diagnosis Assessment Notes [...] refill. Oarrs reviewed. No med changes needed. [employer] Other 07-05-2023 Evaluation note* Encounter Date Diagnosis Assessment Notes Treatment Notes Treatment Clinical Notes May, C. difficile colitis (ICD-10 - A04.72) [employer] Other 06-19-2023 Evaluation note* Encounter Date Diagnosis Assessment Notes Treatment Notes Treatment Clinical Notes Apr, Skin candidiasis (ICD-10 - B37.2) Discussed this is related to her hyperglycemia. Will treat w nystatin, but needs improvement in diet and glucose readings. Apr, Type 2 diabetes mellitus with hyperglycemia, unspecified whether halfway insulin use (ICD-10 - E11.65) Pt agrees to see Dr Mcconnell again. Recently sent to ER for glucose of 608. 19 Apr, 2023 Tremor of both hands (ICD-10 - R25.1) Referral to Dr. Lopez Apr, Memory changes (ICD- 10 - R41.3) Referral to Dr. Lopez Apr, Gastroesophageal reflux disease without esophagitis (ICD-10 - K21.9) Improved on carafate w PPI. [employer] Other 06-01-2023 Evaluation note* Encounter Date Diagnosis Assessment Notes Treatment Notes Treatment Clinical Notes Apr, Gastroesophageal ref lux disease without esophagitis (ICD-10 - K21.9) [employer] Other 04-28-2023 Evaluation note* Encounter Date Diagnosis [...] (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 insulin (ICD-10 - Z79.4) [employer] Other 04-26-2023 Evaluation note* Encounter Date Diagnosis Assessment Notes Treatment Notes Treatment Clinical Notes Feb, C. difficile colitis (ICD-10 - A04.72) [employer] Other 04-17-2023 Evaluation note* Encounter Date Diagnosis Assessment Notes Treatment Notes Treatment Clinical Notes Feb, Gastroesophageal ref lux disease without esophagitis (ICD-10 - K21.9) [employer] Other 04-14-2023 Evaluation note* Encounter Date Diagnosis Assessment Notes Treatment Notes Treatment Clinical Notes Feb, Chronic diarrhea (ICD-10 - K52.9) [employer] Other 04-11-2023 Evaluation note* Encounter Date Diagnosis [...] it really overall has not been helpful. [employer] Other 01-13-2023 Evaluation note* Encounter Date Diagnosis Assessment Notes Treatment Notes Treatment Clinical Notes Nov, Type 2 diabetes mellitus with hyperglycemia, unspecified whether halfway insulin use (ICD-10 - E11.65) [employer] Other 10-14-2021 Evaluation note* Encounter Date Diagnosis [...] training 6. Follow up in 3 months. [facility] [employer] Other Evaluation + Plan note No data available for this section General Surgery [place] Evaluation noteNo InformationN[facility] [employer] Other Evaluation [facility]Nort [employer] Other Evaluation noteNort [employer] Other Evaluation note* Diagnosis Onset Date Resolution Status Chalazion of right eye acute Immunization due acute Urinary incontinence acute [facility] Work Phone: Evaluation note* Diagnosis Onset Date Resolution Status Chalazion of right eye acute Immunization due acute Urinary incontinence acute Diabetes mellitus with hyperglycemia acute Hypertension acute Hypothyroidism acute Lumbar spondylosis acute Secondary hyperparathyroidism acute [facility] Work Phone: Evaluation note* Diagnosis Onset [...] acute Thrush of mouth and esophagus acute [facility] Work Phone: Evaluation note* Diagnosis Onset [...] IV acute UTI (urinary tract infection) acute [facility] Work Phone: Evaluation note* Diagnosis Onset [...] acute Thrush of mouth and esophagus acute [id number] acute Secondary hyperparathyroidism acute [facility] Work Phone: Evaluation note* Diagnosis Onset [...] acute Thrush of mouth and esophagus acute [id number] acute CKD (chronic kidney disease) stage 3, GFR 30-59 ml/min acute Hyperlipidemia acute [id number] acute Secondary hyperparathyroidism acute Type 2 diabetes mellitus wit h diabetic chronic kidney disease acute Tremor acute [facility] Work Phone: Evaluation note* Diagnosis Onset Date Resolution Status Acute on chronic diastolic C HF (congestive [...] acute Thrush of mouth and esophagus acute [id number] acute CKD (chronic kidney disease) stage 3, GFR 30-59 ml/min acute Hyperlipidemia acute [id number] acute Secondary hyperparathyroidism acute Type 2 diabetes mellitus wit h diabetic chronic kidney disease acute Acute on chronic diastolic C HF (congestive heart failure) acute [id number] acute Tremor acute [id number] acute [facility] Work Phone: Hispnuf general Narrative - Reported* Type Description Date [...] History COLONOSCOPY 04/10/2019 Hospitalization History See above [employer] Other Hisnmjo general Narrative - Reported* Type Description Date [...] History COLONOSCOPY 04/10/2019 Hospitalization History See above [employer] Other History general Narrative - ReportedNoFanLib Other History general Narrative - ReportedNoFanLib Other History general Narrative - Reported* Type [...] GERD 2022 Hospitalization History DIABETES ISSUES 2022 [employer] Other Hospital Discharge instructions No data available for this section [facility] [place] [facility] Discharge instructionsAmbulatory Orders* Referral to Neurology Time Frame: 06/16/24, Location: None [facility] Work Phone: Hospital Discharge instructionsAmbulatory Orders* Referral to ENT Time Frame: 06/25/24, Location: None [facility] Work Phone: Progress note No data available for this section General Surgery [place] Summary Purpose Family History Relationship Condition Age [...] se, stage 4 (severe) (N18.4) Referral Organization [facility] Osei narayan Referring Provider First Name Shantel Referring Provider Last Name Tenisha Referring Provider Specialty Family [facility] cine Referred Organization [facility] Nephrology Referred Provider Cherie Rapp Referred Address [address] [place] [address] Juan David Reina ,[place], [place],[address] Referred Provider Specialty Nephrology Referral Priority Routine General Notes Mariela Kingston 11:35:41 AM >received today, sent P2P Reason *FU 09/13 lumbar p ain Diagnosis 1 Lumbar degenerative disc disease (M51.36) Referral Organization [facility] [employer] helene Referring Provider First Name Shantel Referring Provider Last Name Tenisha Referring Provider Specialty [facility] Referred Organization [facility] Referred Provider Terell Soliz Referred Address [address], [place],[address] Referred Provider Specialty Pain [facility] Referral Priority Routine General Notes Alf Kingstonya 03:09:25 PM >received today, waiting for notes to be locked Mariela Kingston 09/06/2023 10:08:29 AM >notes locked, referral faxed Clinical Notes F: [id number] Reason Poorly controlled di abetes Diagnosis 1 Type 2 diabetes maranda itus with hyperglycemia, unspecified whether halfway insulin use (E11.65) Referral Organization [facility] [employer] Referring Provider First Name Shantel Referring Provider Last Name Tenisha Referring Provider Specialty [facility] [employer] Referred Organization Unknown Facility Referred Provider Joshua Mcconnell Referred Provider Specialty Internal Med icine Referral Priority Routine Reason tremor and memory lo ss - family history of dementia Diagnosis 1 Tremor of both hands (R25.1) Referral Organization [facility] [employer] Referring Provider First Name Shantel Referring Provider Last Name Tenisha Referring Provider Specialty [facility] [employer] Referred Organization Unknown Facility Referred Provider Emery [...] disc disease Thrush of mouth and esophagus [id number] Secondary hyperparathyroidism Chief Complaint medication review Amb Documentation Amb Documentation tbh follow up difficulty swallowing Amb Documentation TBH follow up, Hypercolemia throat problem SOB RENAL CKD 4 TBH follow up Reason for Visit Diabetes mellitus wi th [...] disc disease Thrush of mouth and esophagus [id number] CKD (chronic kidney disease) stage 3, GFR 30-59 ml/min Hyperlipidemia [id number] 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 Tremor Chief Complaint Amb Documentation Amb Documentation tbh follow up difficulty swallowing Amb Documentation TBH follow up, Hypercolemia throat problem SOB RENAL CKD 4 TBH follow up Reason for Visit Acute on chronic krystal stolic CHF (congestive heart failure) Diabetes mellitus with [...] disc disease Thrush of mouth and esophagus [id number] CKD (chronic kidney disease) stage 3, GFR 30-59 ml/min Hyperlipidemia [id number] 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 Acute on chronic diastolic CHF (congestive heart failure) [id number] Tremor [id number] Additional Source Comments INFORMATION SOURCE (unrecogn ized section and content) DATE CREATED AUTHOR 05/10/2018 [facility] DATE CREATED AUTHOR AUTHOR'S ORGANIZ ATION 03/10/2023 [facility] DATE CREATED AUTHOR AUTHOR'S ORGANIZ ATION 02/20/2024 [facility] DATE CREATED AUTHOR AUTHOR'S ORGANIZ ATION 05/28/2024 [facility] DATE CREATED AUTHOR AUTHOR'S ORGANIZ ATION 06/21/2024 [facility] REASON FOR VISIT (unrecogniz ed section and [...] 2024 End: May 07, 2024 Team Status: Inactive Member Role Status Dates Shantel Steven MD Primary Care Provide r, Attending Provider Active Start: May 19, 2024 End: May 19, 2024 Team Status: Active Member Role Status Dates Shantel Steven MD Primary Care Provider Active Start: May 20, 2024 JOSELITO Espinoza-Nasima Attending Provider Active S tart: May 20, [...] June 05, 2024 End: June 05, 2024 Team Status: Active Member Role Status Dates Shantel Steven MD Primary Care Provider Active Start: June 09, 2024 Analisa Bryant MD Attending Provider Active St art: June 09, 2024 Team Status: Active Member Role Status Cecille Steven MD Primary Care Provider Active Start: June 10, 2024 Shaikh Isak MD Attending Provider Active Sta rt: June 10, 2024 Team Status: Inactive Member Role Status Dates Shantel Steven MD Primary Care Provide r, Attending Provider Active Start: June 16, 2024 End: June 16, 2024 Team Status: Active Member Role Status Dates Shantel Steven MD Primary Care Provider Active Start: June 24, 2024 Rica Kaplan MD Attending Provider Active Start: June 24, 2024 Team Status: Active Member Role Status Dates Shantel Steven MD Primary Care Provide r, Attending Provider Active Start: June 25, 2024 Team Status: Active Member Role [...] End: January 18, 2024 Franchesca Sullivan APRN [employer] Attending Provider Act chiqui Start: January 18, [...] June 05, 2024 End: June 05, 2024 Team Status: Active Member Role Status Dates Shantel Steven MD Primary Care Provider Active Start: June 09, 2024 Analisa Bryant MD Attending Provider Active St art: June 09, 2024 Team Status: Active Member Role Status Dates Shantel Steven MD Primary Care Provider Active Start: June 10, 2024 Shaikh Isak MD Attending Provider Active Sta rt: June 10, 2024 Team Status: Inactive Member Role Status Dates Shantel Steven MD Primary Care Provide r, Attending Provider Active Start: June 16, 2024 End: June 16, 2024 Team Status: Active Member Role Status Dates Shantel Steven MD Primary Care Provider Active Start: June 24, 2024 Rica Kaplan MD Attending Provider Active Start: June 24, 2024 Team Status: Active Member Role Status Dates Shantel Steven MD Primary Care Provide r, Attending Provider Active Start: June 25, 2024 Goals (unrecognized section and content) Goals [...] BE BASED ON THE PRIMARY CLINICAL RECORDS. [facility] [employer] [facility]. provides no warranty or guarantee of the accuracy or completeness of information in this document.
[2024-07-01 09:36] VITALS: BP 147/68; PULSE 65; O2SAT 96
[2024-07-01 09:37] VITALS: BP 148/72; PULSE 68; O2SAT 96
[2024-07-01] MEDS: BUPIVACAINE HCL 0.25% PF 25 MG/10 ML VIAL 5 ML INJ (09:38)
--- NOTE | 2024-07-01 09:40 | P.ON_ITS ---
Date of procedure: 07/01/24 Pre-op diagnosis: Lumbar spondylosis Post-op diagnosis: same as pre-op Procedure: Bilateral Lumbar 5/sacral 1 medial branch block Preop diagnosis includes pain secondary to spondylosis, Postop diagnosis same Under fluoroscopic guidance Solution injected: 2milliliters Marcaine 0.25% Anesthesia :none Immediate complications none Time out process compliant After informed consent obtained from the patient placed in the Prone proposition . area was prepped and draped in a sterile fashion using betadine .25 gauge spinal needle inserted over each of the above mentioned target areas . Stanley were directed towards the target under fluoroscopic guidance . after encountering each of the targets , no indication of intravascular intraneuronal or intrathecal needle tip placement. Then 0 .5 to 1 Milliliter was injected at each level. Stanley removed postoperatively. patient transferred to recovery in stable condition to be discharged home after meeting criteria Anesthesia: Local Surgeon: Sri Soliz Condition: stable
== END 2024-07-01 09:46 | disposition home or self-care (01) ==
LOC: SURGOUT 09:01
PROVIDERS: PCP Family Medicine; Visit Provider Anesthesiology Pain Medicine
DX: M47.816 Spondylosis without myelopathy or radiculopathy, lumbar region (principal)
CPT/HCPCS: 64493; J0665

== ENCOUNTER 2024-07-09 14:36 | Outpatient (OUT) | payer MEDICARE, SELFPAY ==
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
--- OUTSIDE RECORDS SUMMARY | 2024-07-09 14:59 | XMS_ITS | CCD ---
Author Organization [facility] CliniSyin Care Team Providers Care Business Process Architect Name Role Phone UNKNOWN, PROVIDER Unavailable Unavailable UNKNOWN, PROVIDER Unavailable Unavailable NIC BRYAN Unavailable Unavailable Akbar Cui II Unavailable [phone] SHANTEL STEVEN Primary Care Physician Shantel [...] MCCRACKEN Admitting Unavailable YAMEL MCCRACKEN Attending Unavailable TEINSHA, DR SHANTEL Alvarado Primary Care Unavailable TENISHA, DR SHANTEL Alvarado Primary Care Unavailable TENISHA, DR SHANTEL Alvarado Admitting Unavailable DR SHANTEL STEVEN Attending Unavailable DR SHANTEL STEVEN Consulting Unavailable Jaleesa Vanessa Unavailable MD Shantel Steven Primary Care Provider [phone] MD Shantel Steven Other Provider MD Eloina Hussein Attending Provider MD Eloina Hussein Referring Provider DO Jesus Barbour Emergency Provider [phone] Eloina Hussein Admitting Unavailable Shantel Steven Consulting Unavailable Shantel Steven Primary Care Unavailable Eloina Hussein Referring Unavailable Eloina Hussein Attending Unavailable Jesus Barbour Attending Unavailable Jesus Barbour Admitting Unavailable Shantel Steven Primary Care Unavailable MD Shantel Steven Primary Care Provider [phone] DO Jesus Barbour Emergency Provider MD Shantel Steven Primary Care Provider [phone] ENZO BARNES Attending Unavailable ENZO BARNES Attending Unavailable RICA KAPLAN Attending Unavailable MICHELA DELACRUZ Attending Unavailable RICA KAPLAN Attending Unavailable Allergies Allergy Classification Reported Allergen(s) Allergy Type Date of Onset Reaction(s) Facility (1 source) Iodine (And Iodine Containting Drugs) Drug allergy (disorder) 03-04-20 12 [facility] (20 sources) Shellfish; Translations: [Shellfish] Food allergy (disorder) 03-04-20 12 rash, Eruption of skin (disorder) [facility] (14 sources) Sulfonamides (Antibiotic); Translations: [SULFA (SULFONAMIDE ANTIBIOTICS)] Drug allergy (disorder) 03-04-20 12 Rash [facility] (20 sources) Sulfacetamide Drug Allergy 02-15-20 24 diarrhea [facility] (13 sources) Contrast media; Translations: [contrast media (iodine-based)] Drug allergy Unknown (qualifier value) [facility] (2 sources) Sulfonamides (Antibiotic); Translations: [sulfa drugs] Drug allergy Diarrhea (finding) [facility] (2 sources) Glucosamine Drug Allergy [facility] (2 sources) Iodine (And Iodine Containting Drugs) Drug allergy (disorder) 08-09-20 17 [facility] (11 sources) Contrast media Propensity to adverse reactions 11-18-[address] DYE [employer] Other (12 sources) Iodine; Translations: [IODINE] Drug Allergy 10-30-20 14 Unknown [facility] (11 sources) Substance with sulfonamide structure and antibacterial mechanism of action (substance) Drug allergy Unknown [employer] Other (11 sources) Dyes Propensity to adverse reactions Comment:CT Dyes,Dyes,IVP Dyes [facility] Other (12 sources) Shellfish; Translations: [shellfish derived] Allergy to substance 10-30-20 14 [facility] (12 sources) Iodinated Contrast Media; Translations: [Iodinated Contrast Media] Allergy to substance 02-15-20 24 [facility] (1 source) Sulfacetamide Drug Allergy 05-22-20 24 [facility] Repository (1 source) Sulfonamides (Antibiotic) Drug allergy (disorder) 05-22-20 24 [facility] Repository (1 source) Chocolate; Translations: [CHOCOLATE FLAVOR] Propensity to adverse reactions to drug (disorder) 01-17-20 23 [facility] Medications Current Medications Medication Drug [...] Ordered bifidobacterium infantis 4 mg oral capsule (4 sources) Start: 06-05-2024 take 1 capsule by mouth once daily Bifidobacterium Infantis (Align) 4 mg capsule Active 4 MG PO Daily June 05, 2024 12:00am biotin 10 mg oral capsule (18 sources) Start: 06-05-2024 take 42871 ug by mouth once daily Biotin Active 04213 MCG PO daily June 05, 2024 12:00am Start: 01-17-2024 End: 04-03-2024 take 5 mg by mouth once daily Biotin Discontinued 5 MG PO Daily January 17, 2024 1:00am April 03, 2024 11:46am take 1 capsule by [facility] every twenty-four hours Biotin 5 MG 1 capsule Orally Once a day Active cholecalciferol 0.025 mg oral capsule (20 sources) Vitamin D Start: 06-05-2024 take 25 [...] day Active take 1 capsule by mo [facility] every twenty-four hours Vitamin D3 25 MCG (1000 UT) 1 capsule Orally Once a day Active cholestyramine resin 4000 mg powder for oral suspension (1 source) Bile Acid Sequestrant Start: 04-26-2021 Questran 4 g/9 g oral powder = 1 packet(s), Oral, Daily, # 30 EA, Refills(s) 11, Pharmacy: [id number], 165.1, cm, 03/07/21 13:49:00 EDT, Height/Length [...] 2021 12:00am take 1 capsule by mo [facility] every twelve hours dilTIAZem HCl ER 120 MG 1 capsule Orally Twice a day Active famotidine 20 mg oral tablet (20 sources) Histamine-2 Receptor Antagonist Start: 01-17-2024 take 20 mg by mouth once daily at bedtime Famotidine Active 20 MG PO Daily at bedtime January 17, 2024 1:00am Start: 01-07-2023 [facility]four [facility] Famotidine 20 [...] Glucose Sensor (Freestyle Familia 2 Sensor) kit (5 sources) Start: 05-07-2024 Flash Glucose Sensor (Freestyle Famliia 2 Sensor) kit Active 0 .Route May [...] insulin isophane, human 100 unt/ml pen injector (10 sources) Start: 01-24-2024 inject 14 [IU] by [...] (20 sources) Factor Xa Inhibitor Start: 06-12-2021 End: 06-30-2024 take 1 tablet by mouth once daily Rivaroxaban (Xarelto) 20 mg tablet Active 20 MG PO Daily June 30, 2024 9:49am take 0.5 tablet by mouth once da [...] capsule Orally Once a day Active Vitamins A,C,C-Drxw-Ytqxzf (Preservision Areds) 4,296 mcg-226 mg-90 mg capsule (9 sources) Start: 01-17-2024 take 1 capsule by mouth twice daily Vitamins A,C,J-Avoy-Vbfofm (Preservision Areds) 4,296 mcg-226 mg-90 mg capsule [...] 07, 2024 7:30am Start: 06-07-2024 End: 06-07-2024 take 1 tablet by mouth once daily Oxycodone-Acetaminophen Discontinued 1 T AB PO Daily June 07, 2024 June 07, 2024 7:30am Start: 06-07-2024 End: 06-07-2024 Start: 05-07-2024 End: 06-07-2024 take 1 tablet by mouth once daily Oxycodone-Acetaminophen Discontinued 1 T AB PO Daily June 05, 2024 June 07, [...] Active Start: 07-23-2023 take 1 tablet by [facility] twice daily oxyCODONE-Acetaminophen 5-325 MG 1 table t Orally two times daily for 30 days Jul, Active Start: 07-17-2023 take 1 tablet by [facility] twice daily oxyCODONE-Acetaminophen 5-325 MG 1 table t Orally two times daily for 30 days Jul, Active Start: 05-22-2023 Start: 04-03-2023 take 1 tablet by [facility] twice daily oxyCODONE-Acetaminophen 5-325 MG 1 table t Orally two times daily for 30 days March, Active Start: 02-02-2023 take 1 tablet by [facility] twice daily oxyCODONE-Acetaminophen 5-325 MG 1 table t Orally two times daily for 30 days Jan, Active Start: 11-30-2022 take 1 tablet by [facility] twice daily oxyCODONE-Acetaminophen 5-325 MG 1 table t Orally two times daily for 30 days Nov, Active Start: 07-27-2022 take 1 tablet by [facility] twice daily acetaminophen-oxycodone 325 mg-2.5 mg or al tablet 1 tab(s), Oral, BID, Refill(s) 0 Start Date: 07/27/22 Status: Ordered Start: 06-12-2021 End: 06-19-2021 take 1 tablet by mouth twice daily Oxycodone-Acetaminophen Discontinued 1 T AB PO Twice daily June 12, 2021 12:00am June 19, 2021 3:13am Start: 06-12-2021 End: 06-19-2021 [id number] 200 actuat albuterol 0.09 mg/actuat metered dose inhaler (15 sources) beta2-Adrenergic Agonist Start: 01-17-2024 End: 04-03-2024 [...] bedtime Orally Once a day Not-Taking amylase 610491 unt / lipase 76880 unt / protease 52133 unt delayed release oral capsule (11 sources) Start: End: Ignlha-Vapxvqjy-Efo lase (Creon) 24,000-76,000 -120,000 unit capsule,delayed release(DR/EC) Discontinued 1 - 2 CAP PO 1-2 TIMES DAILY June 11, 2021 12:00am June 19, 2021 3:12am Start: 06-11-2021 End: 06-19-2021 Start: 05-10-2021 Creon 24,000 u nits oral delayed release capsule See Instructions, take 3 caps with each meal and 2 caps with each snack., # 390 caplet(s), Refills(s) 0, Pharmacy: [id number], 165.1, cm, 04/18/21 13:02:00 EDT, Height/Length Dosing, 116.4, kg, 04/18/21 13:02:00 EDT, Weight Dosing Start Date: 05/10/21 Status: Ordered carvedilol 6.25 mg oral tablet (10 sources) alpha-Adrenergic Khadijah, beta-Adrenergic Khadijah Start: 06-12-2021 End: 01-17-2024 take 6.25 mg by mouth twice daily at mealtime Carvedilol Discontinued 6.25 MG PO Twice daily with meals 60 June 12, 2021 12:00am January 17, 2024 5:18pm cefdinir 300 mg oral capsule (10 sources) Cephalosporin Antibacterial Start: 06-12-2021 End: 01-17-2024 [...] day Active fluconazole 100 mg oral tablet (10 sources) Azole Antifungal Start: 06-12-2021 End: 01-17-2024 [...] Insulin) 100 unit/mL (3 mL) Insulin Pen (9 sources) Start: 06-12-2021 End: 01-15-2024 inject 14 [...] Insulin) 100 unit/mL (3 mL) insulin pen (18 sources) Start: 01-16-2024 End: 01-24-2024 inject 14 [...] 2024 3:13pm ketoconazole 20 mg/ml topical cream (10 sources) Azole Antifungal Start: 02-15-2024 End: 04-29-2024 Ketoconazole Discontinued 1 APPLIC TOPICAL Daily February 15, 2024 12:00am April 29, 2024 1:36pm Start: 02-15-2024 End: 04-29-2024 ketorolac tromethamine 5 mg/ml ophthalmic solution (10 sources) Nonsteroidal Anti-inflammatory Drug, Cyclooxygenase Inhibitor Start: [...] 2024 12:06pm Start: 01-17-2024 End: 06-05-2024 Nystatin [id number] UNIT/GM 1 application Externally Twice a day for 10 days Active Nystatin [id number] UNIT/GM 1 application Externally Twice a day for 10 days Active Lodge 9-Fck-Ydg-Fish Oil (Fish Oil) 1,000 mg (120 mg-180 mg) capsule (9 sources) Start: 01-17-2024 End: 04-03-2024 take 1 capsule by mouth once daily Lodge 0-Qqd-Xia-Fish Oil (Fish Oil) 1,000 mg (120 mg-180 mg) capsule Discontinued 1 CAP PO Daily January 17, 2024 1:00am April 03, 2024 11:49am Start: 01-17-2024 take 1 capsule by mo ksh once daily Lodge 5-Kau-Plu-Fish Oil (Fish Oil) 1,000 mg (120 mg-180 mg) capsule Active 1 CAP PO Daily January 17, 2024 1:00am 24 hr oxybutynin chloride 10 mg extended release oral tablet (10 sources) Cholinergic Muscarinic Antagonist Start: 02-15-2024 End: 06-05-2024 take 10 mg by mouth once daily Oxybutynin Chloride Discontinued 10 MG PO Daily February 15, 2024 12:00am June 05, 2024 12:07pm selenomethionine 0.2 mg oral tablet (10 sources) Start: 01-17-2024 End: 04-03-2024 take 200 [...] venlafaxine 37.5 mg extended release oral capsule (10 sources) Serotonin and Norepinephrine Reuptake Inhibitor Start: 06-11-2021 End: 01-17-2024 take 37.5 mg by mouth once daily Venlafaxine Discontinued 37.5 MG PO Daily June 11, 2021 12:00am January 17, 2024 5:18pm Problems Active Problems Problem Classification Problem Date Documented Date Episodic/Chronic Acute and unspecified renal failure (1 source) Acute kidney failure, unspecified Episodic Anxiety disorders (10 sources) Anxiety; Translations: [Anxiety disorder, unspecified] 01-30-2024 [...] Coronary arteriosclerosis; Translations: [Atherosclerotic heart disease of [place] coronary artery without angina pectoris] Onset: 2 01-17-2024 Chronic Coronary atherosclerosis and other heart disease (1 source) Coronary angioplasty status; Translations: [CORONARY ANGIOPLASTY STATUS] Onset: 3 Episodic Diabetes mellitus with complications (20 sources) Disorder of kidney due to diabetes mellitus; Translations: [Type 2 diabetes mellitus with diabetic chronic kidney disease] Onset: 3 07-27-2022 Chronic Diabetes mellitus without complication (14 sources) Diabetes mellitus; Translations: [Type 2 diabetes mellitus without complications] Onset: 2 07-27-2022 Chronic Diabetes mellitus without complication (10 sources) Hyperglycemia; Translations: [Hyperglycemia, unspecified] 06-12-2021 Episodic Disorders of lipid metabolism (12 sources) Hypercholesterolemia; Translations: [Hyperlipidemia] Onset: 2 07-27-2022 [...] Chronic Immunizations and screening for infectious disease (13 sources) Immunization due; Translations: [Encounter for immunization] 01-18-2024 Episodic Inflammation; infection of eye (except that caused by tuberculosis or sexually transmitteddisease) (10 sources) External hordeolum; Translations: [Hordeolum externum unspecified [...] sources) Long-term current use of insulin; Translations: [[facility] (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 insulin] 01-17-2024 Episodic Other aftercare (1 source) Other intermediate card tender (current) drug therapy; Translations: [OTH DETENTION CURRENT DRUG THERAPY] Onset: 3 Episodic Other aftercare (1 source) [facility] (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 anticoagulants; Translations: [[employer] CURRNT USE 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] Onset: 3 Episodic Other [...] Chronic Other diseases of kidney and ureters (10 sources) Secondary hyperparathyroidism of renal origin; Translations: [Secondary hyperparathyroidism (of renal origin)] 03-25-2024 Chronic Other diseases of veins and lymphatics (10 sources) Lymphedema; Translations: [Lymphedema, not elsewhere classified] 01-17-2024 Chronic Other eye disorders (10 sources) Chalazion; Translations: [Chalazion right eye, unspecified [...] UNSPECIFIED] Onset: 2 Episodic Other gastrointestinal disorders (6 sources) Swollen abdomen; Translations: [Generalized intra-abdominal and pelvic swelling, mass and lump] 05-07-2024 Episodic Other gastrointestinal disorders (6 sources) Generalized intra-abdominal and pelvic swelling, mass and lump; Translations: [Abdominal or pelvic swelling, mass, or lump, generalized] 05-07-2024 Episodic Other lower respiratory disease (3 sources) Shortness of breath; Translations: [SHORTNESS OF BREATH] Onset: 3 Episodic Other lower respiratory disease (10 sources) Dyspnea; Translations: [Dyspnea, unspecified] 06-12-2021 Episodic Other nervous system disorders (4 sources) Tremor, unspecified; Translations: [Abnormal involuntary movements] Episodic Other nervous system disorders (3 sources) Tremor; Translations: [Tremor, unspecified] 06-16-2024 Episodic [...] Chronic Other nutritional; endocrine; and metabolic disorders (10 sources) Intolerance to lactose; Translations: [Lactose intolerance, unspecified] 01-17-2024 Chronic Other nutritional; endocrine; and metabolic disorders (20 sources) Loss of appetite; Translations: [Anorexia] Episodic Other skin disorders (2 sources) Localized swelling, mass and lump, right upper limb; Translations: [Mass of right axilla] 07-07-2024 Episodic Other upper respiratory infections (2 sources) Pharyngitis; Translations: [Acute pharyngitis, unspecified] 06-25-2024 Episodic [...] Retinal detachments; defects; vascular occlusion; and retinopathy (11 sources) Unspecified macular degeneration; Translations: [Degenerative disorder [...] Spondylosis; intervertebral disc disorders; other back problems (17 sources) Chronic low back pain; Translations: [Post-surgery back pain] 07-27-2022 Episodic Syncope (10 sources) Near syncope; Translations: [Syncope and collapse] 06-19-2021 Episodic Thyroid disorders (17 sources) Hypothyroidism; Translations: [Hypothyroidism, unspecified] 07-27-2022 Chronic Unclassified (1 source) CONTACT W/AND (SUSP) EXPOS COVID-19; Translations: [CONTACT W/AND (SUSP) EXPOS COVID-19] Onset: 3 Unclassified (1 source) Low back pain, unspecified; Translations: [Low back pain, unspecified] Onset: 4 Urinary tract infections (12 sources) Urinary tract infectious disease; Translations: [Urinary tract infection, site not specified] 05-07-2024 Episodic Past or Other Problems Problem Classification Problem Date Documented Da te Episodic/Chronic Other aftercare (4 sources) [facility] (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 insulin; Translations: [[employer] CURRENT USE OF INSULIN] Onset: 02-19-2023 Episodic Residual codes; unclassified (1 source) Generalized edema; Translations: [GENERALIZED EDEMA] Onset: 09-21-2022 Episodic Results Test Name Value Interpretation Reference Range Facility 36on 07-01-2024 36 Regarding lab result s from 06/24/2024: MD Brooke Onofre MA Can you please check with her how she is doing on the Bumex. If she has lost weight and responded well then she can reduce it to once daily and take an extra pill if needed for increased swelling and weight gain. LM for patient to return my call. Normal [facility] Estimated glomerular filtrat ion rate (GFR) non- Americanon 06-24-2024 GFR/1.73 sq M.predicted among non-blacks MDRD (S/P/Bld) [Vol rate/Area] 38 mL/min/{1.73_m2} Low >=60 [facility] Laboratory - Chemistry and C hemistry - challengeon 06-24-2024 Calcium [Mass/Vol] 8.4 mg/dL Low 8.5-10.1 [facility] Chloride [Moles/Vol] 100 mmol/L 98-107 [facility] CO2 [Moles/Vol] 31.1 mmol/L 21.0-32.0 [facility] Creatinine [Mass/Vol] 1.34 mg/dL High 0.55-1.02 [facility] GFR/1.73 sq M.predicted MDRD (S/P/Bld) [Vol rate/Area] 46 mL/min/{1.73_m2} Low >=60 [facility] Glucose [Mass/Vol] 222 mg/dL High 74-106 [facility] Potassium [Moles/Vol] 3.6 mmol/L 3.5-5.1 [facility] Sodium [Moles/Vol] 138 mmol/L 136-145 [facility] Urea nitrogen [Mass/Vol] 32.0 mg/dL High 7.0-18.0 [facility] Urea nitrogen/Creatinine [Mass ratio] 23.9 mg/mg [facility] Serum or plasma anion gap de terminationon 06-24-2024 Anion gap [Moles/Vol] 10.5 mmol/L [facility] Office Visiton 06-18-2024 Follow-up visit [id number] Joe Call 1945 F Date Provider Department Center 06/18/2024 RICA DEAN LOVE [place] Family History Problem Relation Age of Onset Coronary artery disease Other Diabetes Other Polycystic kidney disease Other Family Status - Relation Status Age at Other Level of Service:67812 [place] OFFICE/OUTPATIENT ESTABLISHED MOD MDM 30 MIN Normal [facility] Basophils Auto (Bld) [#/Vol] on 06-10-2024 Basophils (Bld) [#/Vol] 0.1 10 3/uL 0.0-0.1 [facility] Basophils/100 WBC Auto (Bld) on 06-10-2024 Basophils/100 WBC (Bld) 1.0 % 0.2-2.0 F [facility] Eosinophils/100 WBC Auto (Bl d)on 06-10-2024 Eosinophils/100 WBC (Bld) 1.3 % 0.9-7.0 [facility] Erythrocyte distribution wid th Auto (RBC) [Ratio]on 06-10-2024 Erythrocyte distribution width (RBC) [Ratio] 14.6 % 11.0-15.0 [facility] Estimated glomerular filtrat ion rate (GFR) non- Americanon 06-10-2024 GFR/1.73 sq M.predicted among non-blacks MDRD (S/P/Bld) [Vol rate/Area] 54 mL/min/{1.73_m2} Low >=60 [facility] Globulin Calc (S) [Mass/Vol] on 06-10-2024 Globulin (S) [Mass/Vol] 4.5 g/dL F [facility] Hematocrit Auto (Bld) [Volum e fraction]on 06-10-2024 Hematocrit (Bld) [Volume fraction] 36.8 % 36.0-48.0 [facility] Hemoglobin [Mass/volume] in Bloodon 06-10-2024 Hemoglobin (Bld) [Mass/Vol] 12.1 g/dL 12.0-16.0 [facility] Laboratory - Chemistry and C hemistry - challengeon 06-10-2024 Albumin [Mass/Vol] 2.4 g/dL Low 3.4-5.0 [facility] ALP [Catalytic activity/Vol] 94 U/L 46-116 [facility] ALT [Catalytic activity/Vol] 13 U/L Low 14-59 [facility] AST [Catalytic activity/Vol] 13 U/L Low 15-37 [facility] Bilirubin [Mass/Vol] 0.9 mg/dL 0.2-1.0 [facility] Calcium [Mass/Vol] 8.9 mg/dL 8.5-10.1 [facility] Chloride [Moles/Vol] 101 mmol/L 98-107 [facility] CO2 [Moles/Vol] 29.4 mmol/L 21.0-32.0 [facility] Creatinine [Mass/Vol] 1.00 mg/dL 0.55-1.02 [facility] GFR/1.73 sq M.predicted MDRD (S/P/Bld) [Vol rate/Area] mL/min/{1.73_m2} >=60 [facility] Glucose [Mass/Vol] 167 mg/dL High 74-106 [facility] Potassium [Moles/Vol] 3.4 mmol/L Low 3.5-5.1 [facility] Protein [Mass/Vol] 6.9 g/dL 6.4-8.2 [facility] Sodium [Moles/Vol] 136 mmol/L 136-145 [facility] Urea nitrogen [Mass/Vol] 24.0 mg/dL High 7.0-18.0 [facility] Urea nitrogen/Creatinine [Mass ratio] 24.0 mg/mg [facility] Laboratory - Hematology and Cell countson 06-10-2024 Immature granulocytes/100 WBC (Bld) 0.3 % 0.0-0.5 [facility] Leukocytes [#/volume] correc gali for nucleated erythrocytes in Blood by Automated counon 06-10-2024 WBC corrected for nucl RBC Auto (Bld) [#/Vol] 7.9 10 3/uL 4.0-11.0 [facility] Lymphocytes Auto (Bld) [#/Vo l]on 06-10-2024 Lymphocytes (Bld) [#/Vol] 1.3 10 3/uL 1.2-3.8 [facility] Lymphocytes/100 WBC Auto (Bl d)on 06-10-2024 Lymphocytes/100 WBC (Bld) 16.8 % Low 20.5-60.0 [facility] MCH Auto (RBC) [Entitic mass ]on 06-10-2024 MCH (RBC) [Entitic mass] 29.8 pg 26.7-34.0 [facility] MCHC Auto (RBC) [Mass/Vol]on 06-10-2024 MCHC (RBC) [Mass/Vol] 32.9 g/dL 29.9-35.2 [facility] MCV Auto (RBC) [Entitic vol] on 06-10-2024 MCV (RBC) [Entitic vol] 90.6 fL 81.0-99.0 F [facility] Monocytes Auto (Bld) [#/Vol] on 06-10-2024 Monocytes (Bld) [#/Vol] 0.8 10 3/uL 0.3-0.8 [facility] Monocytes/100 WBC Auto (Bld) on 06-10-2024 Monocytes/100 WBC (Bld) 9.8 % 1.7-12.0 F [facility] Neutrophils Auto (Bld) [#/Vo l]on 06-10-2024 Neutrophils (Bld) [#/Vol] 5.6 10 3/uL 1.4-6.5 [facility] Neutrophils/100 WBC Auto (Bl d)on 06-10-2024 Neutrophils/100 WBC (Bld) 70.8 % 43.0-75.0 [facility] No Panel Informationon 06-10 Eosinophils # (Auto) 0.1 10 3/uL 0.0-0.7 [facility] Immature Granulocyte # (Auto) 0.02 10 3/uL 0.00-0.03 [facility] 2.4 g/dL Low 3.4-5.0 [facility] 0.1 10 3/uL 0.0-0.7 [facility] 94 U/L 46-116 [facility] 13 U/L Low 15-37 [facility] 24.0 [facility] 0.02 10 3/uL 0.00-0.03 [facility] 24.0 mg/dL High 7.0-18.0 [facility] 0.3 % 0.0-0.5 [facility] 8.9 mg/dL 8.5-10.1 [facility] 101 mmol/L 98-107 [facility] 29.4 mmol/L 21.0-32.0 [facility] 1.00 mg/dL 0.55-1.02 [facility] >60 >=60 [facility] 167 mg/dL High 74-106 [facility] 3.4 mmol/L Low 3.5-5.1 [facility] 136 mmol/L 136-145 [facility] 0.9 mg/dL 0.2-1.0 [facility] 6.9 g/dL 6.4-8.2 [facility] Platelet mean volume Auto (B ld) [Entitic vol]on 06-10-2024 Platelet mean volume (Bld) [Entitic vol] 11.2 fL 9.5-13.5 [facility] Platelets Auto (Bld) [#/Vol] on 06-10-2024 Platelets (Bld) [#/Vol] 189 10 3/uL 150-450 [facility] RBC Auto (Bld) [#/Vol]on RBC (Bld) [#/Vol] 4.06 10 6/uL Low 4.20-5.40 [facility] Serum or plasma albumin/glob ulin mass ratioon 06-10-2024 Albumin/Globulin [Mass ratio] 0.5 {ratio} [facility] Serum or plasma anion gap de terminationon 06-10-2024 Anion gap [Moles/Vol] 9.0 mmol/L [facility] Basophils Auto (Bld) [#/Vol] on 06-09-2024 Basophils (Bld) [#/Vol] 0.1 10 3/uL 0.0-0.1 [facility] Basophils/100 WBC Auto (Bld) on 06-09-2024 Basophils/100 WBC (Bld) 1.0 % 0.2-2.0 [facility] Eosinophils/100 WBC Auto (Bl d)on 06-09-2024 Eosinophils/100 WBC (Bld) 1.5 % 0.9-7.0 [facility] Erythrocyte distribution wid th Auto (RBC) [Ratio]on 06-09-2024 Erythrocyte distribution width (RBC) [Ratio] 14.8 % 11.0-15.0 [facility] Estimated glomerular filtrat ion rate (GFR) non- Americanon 06-09-2024 GFR/1.73 sq M.predicted among non-blacks MDRD (S/P/Bld) [Vol rate/Area] mL/min/{1.73_m2} >=60 [facility] Fibrin D-dimer [Presence] in Platelet poor plasma by Latex agglutinationon 06-09-2024 Fibrin D-dimer LA Ql (PPP) 0.39 mg/L FEU <=0.59 [facility] Comment on above: Increases in D-Dimer concentration [...] 06-09-2024 Globulin (S) [Mass/Vol] 4.8 g/dL F [facility] Hematocrit Auto (Bld) [Volum e fraction]on 06-09-2024 Hematocrit (Bld) [Volume fraction] 37.7 % 36.0-48.0 [facility] Hemoglobin [Mass/volume] in Bloodon 06-09-2024 Hemoglobin (Bld) [Mass/Vol] 12.5 g/dL 12.0-16.0 [facility] Laboratory - Chemistry and C hemistry - challengeon 06-09-2024 Albumin [Mass/Vol] 2.5 g/dL Low 3.4-5.0 [facility] ALP [Catalytic activity/Vol] 86 U/L 46-116 [facility] ALT [Catalytic activity/Vol] 18 U/L 14-59 [facility] AST [Catalytic activity/Vol] 34 U/L 15-37 [facility] Bilirubin [Mass/Vol] 0.8 mg/dL 0.2-1.0 [facility] Calcium [Mass/Vol] 8.6 mg/dL 8.5-10.1 [facility] Chloride [Moles/Vol] 103 mmol/L 98-107 [facility] CO2 [Moles/Vol] 27.1 mmol/L 21.0-32.0 [facility] Creatinine [Mass/Vol] 0.88 mg/dL 0.55-1.02 [facility] GFR/1.73 sq M.predicted MDRD (S/P/Bld) [Vol rate/Area] mL/min/{1.73_m2} >=60 [facility] Glucose [Mass/Vol] 142 mg/dL High 74-106 [facility] Lipase [Catalytic activity/Vol] 45.0 U/L 16.0-77.0 [facility] Natriuretic peptide B (Bld) [Mass/Vol] 3488.0 pg/mL High <=1800.0 [facility] Comment on above: RESULTS CALLED TO MAIDA MCGOWAN RN @BY Alla Kevin [phone] Potassium [Moles/Vol] 5.0 mmol/L 3.5-5.1 [facility] Protein [Mass/Vol] 7.3 g/dL 6.4-8.2 [facility] Sodium [Moles/Vol] 135 mmol/L Low 136-145 [facility] Urea nitrogen [Mass/Vol] 28.0 mg/dL High 7.0-18.0 [facility] Urea nitrogen/Creatinine [Mass ratio] 31.8 mg/mg [facility] Laboratory - Hematology and Cell countson 06-09-2024 Immature granulocytes/100 WBC (Bld) 0.3 % 0.0-0.5 [facility] Laboratory - Microbiology an d Antimicrobial susceptibilityon 06-09-2024 SARS-CoV-2 (COVID-19) RNA FERN+probe Ql (Unsp spec) Negative NEGATIVE [facility] Comment on above: This test has not [...] of Covid-19 under section 564(b)(1) of theAct, 21 U.S.C. 360bbb-3(b)(1), unless the declaration isterminated or authorization is revoked sooner. Leukocytes [#/volume] correc gali for nucleated erythrocytes in Blood by Automated counon 06-09-2024 WBC corrected for nucl RBC Auto (Bld) [#/Vol] 8.9 10 3/uL 4.0-11.0 [facility] Lymphocytes Auto (Bld) [#/Vo l]on 06-09-2024 Lymphocytes (Bld) [#/Vol] 1.3 10 3/uL 1.2-3.8 [facility] Lymphocytes/100 WBC Auto (Bl d)on 06-09-2024 Lymphocytes/100 WBC (Bld) 15.1 % Low 20.5-60.0 [facility] MCH Auto (RBC) [Entitic mass ]on 06-09-2024 MCH (RBC) [Entitic mass] 30.3 pg 26.7-34.0 [facility] MCHC Auto (RBC) [Mass/Vol]on 06-09-2024 MCHC (RBC) [Mass/Vol] 33.2 g/dL 29.9-35.2 [facility] MCV Auto (RBC) [Entitic vol] on 06-09-2024 MCV (RBC) [Entitic vol] 91.5 fL 81.0-99.0 F [facility] Monocytes Auto (Bld) [#/Vol] on 06-09-2024 Monocytes (Bld) [#/Vol] 0.7 10 3/uL 0.3-0.8 [facility] Monocytes/100 WBC Auto (Bld) on 06-09-2024 Monocytes/100 WBC (Bld) 7.9 % 1.7-12.0 F [facility] Neutrophils Auto (Bld) [#/Vo l]on 06-09-2024 Neutrophils (Bld) [#/Vol] 6.6 10 3/uL High 1.4-6.5 [facility] Neutrophils/100 WBC Auto (Bl d)on 06-09-2024 Neutrophils/100 WBC (Bld) 74.2 % 43.0-75.0 [facility] No Panel Informationon 06-09 Negative NEGATIVE [facility] Eosinophils # (Auto) 0.1 10 3/uL 0.0-0.7 [facility] Immature Granulocyte # (Auto) 0.03 10 3/uL 0.00-0.03 [facility] Troponin I High Sensitivity 17.0 pg/mL 4.0-51.3 [facility] Comment on above: CUT-OFF POINTS [...] AND CLINICAL INFORMATION. 3488.0 pg/mL High <=1800.0 [facility] 45.0 U/L 16.0-77.0 [facility] 17.0 pg/mL 4.0-51.3 [facility] 2.5 g/dL Low 3.4-5.0 [facility] 0.1 10 3/uL 0.0-0.7 [facility] 86 U/L 46-116 [facility] 18 U/L 14-59 [facility] 34 U/L 15-37 [facility] 31.8 [facility] 0.03 10 3/uL 0.00-0.03 [facility] 28.0 mg/dL High 7.0-18.0 [facility] 0.3 % 0.0-0.5 [facility] 8.6 mg/dL 8.5-10.1 [facility] 103 mmol/L 98-107 [facility] 27.1 mmol/L 21.0-32.0 [facility] 0.88 mg/dL 0.55-1.02 [facility] >60 >=60 [facility] 142 mg/dL High 74-106 [facility] 5.0 mmol/L 3.5-5.1 [facility] 135 mmol/L Low 136-145 [facility] 0.8 mg/dL 0.2-1.0 [facility] 7.3 g/dL 6.4-8.2 [facility] Platelet mean volume Auto (B ld) [Entitic vol]on 06-09-2024 Platelet mean volume (Bld) [Entitic vol] 12.4 fL 9.5-13.5 [facility] Platelets Auto (Bld) [#/Vol] on 06-09-2024 Platelets (Bld) [#/Vol] 205 10 3/uL 150-450 [facility] RBC Auto (Bld) [#/Vol]on RBC (Bld) [#/Vol] 4.12 10 6/uL Low 4.20-5.40 [facility] Serum or plasma albumin/glob ulin mass ratioon 06-09-2024 Albumin/Globulin [Mass ratio] 0.5 {ratio} [facility] Serum or plasma anion gap de terminationon 06-09-2024 Anion gap [Moles/Vol] 9.9 mmol/L Fir [facility] Basophils Auto (Bld) [#/Vol] on 06-01-2024 Basophils (Bld) [#/Vol] 0.1 10 3/uL 0.0-0.1 [facility] Basophils/100 WBC Auto (Bld) on 06-01-2024 Basophils/100 WBC (Bld) 0.9 % 0.2-2.0 F [facility] Eosinophils/100 WBC Auto (Bl d)on 06-01-2024 Eosinophils/100 WBC (Bld) 1.2 % 0.9-7.0 [facility] Erythrocyte distribution wid th Auto (RBC) [Ratio]on 06-01-2024 Erythrocyte distribution width (RBC) [Ratio] 14.1 % 11.0-15.0 [facility] Estimated glomerular filtrat ion rate (GFR) non- Americanon 06-01-2024 GFR/1.73 sq M.predicted among non-blacks MDRD (S/P/Bld) [Vol rate/Area] 47 mL/min/{1.73_m2} Low >=60 [facility] Globulin Calc (S) [Mass/Vol] on 06-01-2024 Globulin (S) [Mass/Vol] 4.4 g/dL F [facility] Hematocrit Auto (Bld) [Volum e fraction]on 06-01-2024 Hematocrit (Bld) [Volume fraction] 37.6 % 36.0-48.0 [facility] Hemoglobin [Mass/volume] in Bloodon 06-01-2024 Hemoglobin (Bld) [Mass/Vol] 12.5 g/dL 12.0-16.0 [facility] Laboratory - Chemistry and C hemistry - challengeon 06-01-2024 Albumin [Mass/Vol] 2.7 g/dL Low 3.4-5.0 [facility] ALP [Catalytic activity/Vol] 87 U/L 46-116 [facility] ALT [Catalytic activity/Vol] 18 U/L 14-59 [facility] AST [Catalytic activity/Vol] 16 U/L 15-37 [facility] Bilirubin [Mass/Vol] 0.5 mg/dL 0.2-1.0 [facility] Calcium [Mass/Vol] 8.7 mg/dL 8.5-10.1 [facility] Chloride [Moles/Vol] 101 mmol/L 98-107 [facility] CO2 [Moles/Vol] 28.9 mmol/L 21.0-32.0 [facility] Creatinine [Mass/Vol] 1.12 mg/dL High 0.55-1.02 [facility] GFR/1.73 sq M.predicted MDRD (S/P/Bld) [Vol rate/Area] 57 mL/min/{1.73_m2} Low >=60 [facility] Glucose [Mass/Vol] 232 mg/dL High 74-106 [facility] Potassium [Moles/Vol] 4.1 mmol/L 3.5-5.1 [facility] Protein [Mass/Vol] 7.1 g/dL 6.4-8.2 [facility] Sodium [Moles/Vol] 137 mmol/L 136-145 [facility] Urea nitrogen [Mass/Vol] 23.0 mg/dL High 7.0-18.0 [facility] Urea nitrogen/Creatinine [Mass ratio] 20.5 mg/mg [facility] Laboratory - Hematology and Cell countson 06-01-2024 Immature granulocytes/100 WBC (Bld) 0.2 % 0.0-0.5 [facility] Leukocytes [#/volume] correc gali for nucleated erythrocytes in Blood by Automated counon 06-01-2024 WBC corrected for nucl RBC Auto (Bld) [#/Vol] 9.0 10 3/uL 4.0-11.0 [facility] Lymphocytes Auto (Bld) [#/Vo l]on 06-01-2024 Lymphocytes (Bld) [#/Vol] 1.4 10 3/uL 1.2-3.8 [facility] Lymphocytes/100 WBC Auto (Bl d)on 06-01-2024 Lymphocytes/100 WBC (Bld) 15.9 % Low 20.5-60.0 [facility] MCH Auto (RBC) [Entitic mass ]on 06-01-2024 MCH (RBC) [Entitic mass] 29.5 pg 26.7-34.0 [facility] MCHC Auto (RBC) [Mass/Vol]on 06-01-2024 MCHC (RBC) [Mass/Vol] 33.2 g/dL 29.9-35.2 [facility] MCV Auto (RBC) [Entitic vol] on 06-01-2024 MCV (RBC) [Entitic vol] 88.7 fL 81.0-99.0 F [facility] Monocytes Auto (Bld) [#/Vol] on 06-01-2024 Monocytes (Bld) [#/Vol] 0.8 10 3/uL 0.3-0.8 [facility] Monocytes/100 WBC Auto (Bld) on 06-01-2024 Monocytes/100 WBC (Bld) 8.5 % 1.7-12.0 F [facility] Neutrophils Auto (Bld) [#/Vo l]on 06-01-2024 Neutrophils (Bld) [#/Vol] 6.6 10 3/uL High 1.4-6.5 [facility] Neutrophils/100 WBC Auto (Bl d)on 06-01-2024 Neutrophils/100 WBC (Bld) 73.3 % 43.0-75.0 [facility] No Panel Informationon 06-01 Eosinophils # (Auto) 0.1 10 3/uL 0.0-0.7 [facility] Immature Granulocyte # (Auto) 0.02 10 3/uL 0.00-0.03 [facility] 2.7 g/dL Low 3.4-5.0 [facility] 0.1 10 3/uL 0.0-0.7 [facility] 87 U/L 46-116 [facility] 18 U/L 14-59 [facility] 16 U/L 15-37 [facility] 20.5 [facility] 0.02 10 3/uL 0.00-0.03 [facility] 23.0 mg/dL High 7.0-18.0 [facility] 0.2 % 0.0-0.5 [facility] 8.7 mg/dL 8.5-10.1 [facility] 101 mmol/L 98-107 [facility] 28.9 mmol/L 21.0-32.0 [facility] 1.12 mg/dL High 0.55-1.02 [facility] 57 Low >=60 [facility] 232 mg/dL High 74-106 [facility] 4.1 mmol/L 3.5-5.1 [facility] 137 mmol/L 136-145 [facility] 0.5 mg/dL 0.2-1.0 [facility] 7.1 g/dL 6.4-8.2 [facility] Platelet mean volume Auto (B ld) [Entitic vol]on 06-01-2024 Platelet mean volume (Bld) [Entitic vol] 11.1 fL 9.5-13.5 [facility] Platelets Auto (Bld) [#/Vol] on 06-01-2024 Platelets (Bld) [#/Vol] 162 10 3/uL 150-450 [facility] RBC Auto (Bld) [#/Vol]on RBC (Bld) [#/Vol] 4.24 10 6/uL 4.20-5.40 [facility] Serum or plasma albumin/glob ulin mass ratioon 06-01-2024 Albumin/Globulin [Mass ratio] 0.6 {ratio} [facility] Serum or plasma anion gap de terminationon 06-01-2024 Anion gap [Moles/Vol] 11.2 mmol/L [facility] Basophils Auto (Bld) [#/Vol] on 05-26-2024 Basophils (Bld) [#/Vol] 0.1 10 3/uL 0.0-0.1 [facility] Basophils/100 WBC Auto (Bld) on 05-26-2024 Basophils/100 WBC (Bld) 1.1 % 0.2-2.0 F [facility] Eosinophils/100 WBC Auto (Bl d)on 05-26-2024 Eosinophils/100 WBC (Bld) 2.1 % 0.9-7.0 [facility] Erythrocyte distribution wid th Auto (RBC) [Ratio]on 05-26-2024 Erythrocyte distribution width (RBC) [Ratio] 14.0 % 11.0-15.0 [facility] Estimated glomerular filtrat ion rate (GFR) non- Americanon 05-26-2024 GFR/1.73 sq M.predicted among non-blacks MDRD (S/P/Bld) [Vol rate/Area] 40 mL/min/{1.73_m2} Low >=60 [facility] Globulin Calc (S) [Mass/Vol] on 05-26-2024 Globulin (S) [Mass/Vol] 4.4 g/dL F [facility] Hematocrit Auto (Bld) [Volum e fraction]on 05-26-2024 Hematocrit (Bld) [Volume fraction] 35.9 % Low 36.0-48.0 [facility] Hemoglobin [Mass/volume] in Bloodon 05-26-2024 Hemoglobin (Bld) [Mass/Vol] 12.0 g/dL 12.0-16.0 [facility] Laboratory - Chemistry and C hemistry - challengeon 05-26-2024 Albumin [Mass/Vol] 2.7 g/dL Low 3.4-5.0 [facility] ALP [Catalytic activity/Vol] 88 U/L 46-116 [facility] ALT [Catalytic activity/Vol] 20 U/L 14-59 [facility] AST [Catalytic activity/Vol] 12 U/L Low 15-37 [facility] Bilirubin [Mass/Vol] 0.5 mg/dL 0.2-1.0 [facility] Calcium [Mass/Vol] 8.9 mg/dL 8.5-10.1 [facility] Chloride [Moles/Vol] 104 mmol/L 98-107 [facility] CO2 [Moles/Vol] 26.7 mmol/L 21.0-32.0 [facility] Creatinine [Mass/Vol] 1.29 mg/dL High 0.55-1.02 [facility] Free T4 [Mass/Vol] 1.19 ng/dL 0.76-1.46 [facility] GFR/1.73 sq M.predicted MDRD (S/P/Bld) [Vol rate/Area] 49 mL/min/{1.73_m2} Low >=60 [facility] Glucose [Mass/Vol] 233 mg/dL High 74-106 [facility] Natriuretic peptide B (Bld) [Mass/Vol] 2687.0 pg/mL High <=1800.0 [facility] Comment on above: RESULTS CALLED TO DR Miranda HENNING IN ER BY Mira Edwards [phone] Potassium [Moles/Vol] 4.0 mmol/L 3.5-5.1 [facility] Protein [Mass/Vol] 7.1 g/dL 6.4-8.2 [facility] Sodium [Moles/Vol] 140 mmol/L 136-145 [facility] TSH Qn 4.487 m[IU]/L High 0.358-3.740 [facility] Urea nitrogen [Mass/Vol] 33.0 mg/dL High 7.0-18.0 [facility] Urea nitrogen/Creatinine [Mass ratio] 25.6 mg/mg [facility] Laboratory - Hematology and Cell countson 05-26-2024 Immature granulocytes/100 WBC (Bld) 0.1 % 0.0-0.5 [facility] Laboratory - Microbiology an d Antimicrobial susceptibilityon 05-26-2024 S. pyogenes Ag Ql (Unsp spec) Negative [facility] SARS-CoV-2 (COVID-19) RNA FERN+probe Ql (Unsp spec) Not detected NOT DETECTE [facility] Comment on above: THIS TEST IS NOT PEREZ ROVDED BY THE FDA. It has beenauthorized for use under an Emergency Use Authorization. SARS-CoV-2 (COVID-19) RNA FERN+probe Ql (Unsp spec) See comment NOT DETECTE [facility] Comment on above: COVID AG PERFORMED-- - 06/06/24 1120 ---SARS-CoV-2 FERN previously reported as: NOT DETECTEDTHIS TEST IS NOT APPROVDED BY THE FDA. It has beenauthorized for use under an Emergency Use Authorization. SARS-CoV-2 (COVID-19) RNA FERN+probe Ql (Unsp spec) Negative NEGATIVE [facility] Comment on above: This test has not [...] of Covid-19 under section 564(b)(1) of theAct, 21 U.S.C. 360bbb-3(b)(1), unless the declaration isterminated or authorization is revoked sooner. Leukocytes [#/volume] correc gali for nucleated erythrocytes in Blood by Automated counon 05-26-2024 WBC corrected for nucl RBC Auto (Bld) [#/Vol] 7.3 10 3/uL 4.0-11.0 [facility] Lymphocytes Auto (Bld) [#/Vo l]on 05-26-2024 Lymphocytes (Bld) [#/Vol] 1.3 10 3/uL 1.2-3.8 [facility] Lymphocytes/100 WBC Auto (Bl d)on 05-26-2024 Lymphocytes/100 WBC (Bld) 18.4 % Low 20.5-60.0 [facility] MCH Auto (RBC) [Entitic mass ]on 05-26-2024 MCH (RBC) [Entitic mass] 30.4 pg 26.7-34.0 [facility] MCHC Auto (RBC) [Mass/Vol]on 05-26-2024 MCHC (RBC) [Mass/Vol] 33.4 g/dL 29.9-35.2 [facility] MCV Auto (RBC) [Entitic vol] on 05-26-2024 MCV (RBC) [Entitic vol] 90.9 fL 81.0-99.0 F [facility] Monocytes Auto (Bld) [#/Vol] on 05-26-2024 Monocytes (Bld) [#/Vol] 0.7 10 3/uL 0.3-0.8 [facility] Monocytes/100 WBC Auto (Bld) on 05-26-2024 Monocytes/100 WBC (Bld) 9.5 % 1.7-12.0 F [facility] Neutrophils Auto (Bld) [#/Vo l]on 05-26-2024 Neutrophils (Bld) [#/Vol] 5.0 10 3/uL 1.4-6.5 [facility] Neutrophils/100 WBC Auto (Bl d)on 05-26-2024 Neutrophils/100 WBC (Bld) 68.8 % 43.0-75.0 [facility] No Panel Informationon 05-26 See comment NOT DETECTE [facility] Negative [facility] Eosinophils # (Auto) 0.2 10 3/uL 0.0-0.7 [facility]ir [facility] Immature Granulocyte # (Auto) 0.01 10 3/uL 0.00-0.03 [facility] Monoscreen Negative NEGATIVE [facility] Troponin I High Sensitivity 14.9 pg/mL 4.0-51.3 [facility] Comment on above: CUT-OFF POINTS [...] DIAGNOSTIC AND CLINICAL INFORMATION. 1.19 ng/dL 0.76-1.46 [facility] 2687.0 pg/mL High <=1800.0 [facility] 14.9 pg/mL 4.0-51.3 [facility] 4.487 u[iU]/mL High 0.358-3.740 [facility] Negative NEGATIVE [facility] 2.7 g/dL Low 3.4-5.0 [facility] 0.2 10 3/uL 0.0-0.7 [facility] 88 U/L 46-116 [facility] 20 U/L 14-59 [facility] 12 U/L Low 15-37 [facility] 25.6 [facility] 0.01 10 3/uL 0.00-0.03 [facility] 33.0 mg/dL High 7.0-18.0 [facility] 0.1 % 0.0-0.5 [facility] 8.9 mg/dL 8.5-10.1 [facility] 104 mmol/L 98-107 [facility] 26.7 mmol/L 21.0-32.0 [facility] 1.29 mg/dL High 0.55-1.02 [facility] 49 Low >=60 [facility] 233 mg/dL High 74-106 [facility] 4.0 mmol/L 3.5-5.1 [facility] 140 mmol/L 136-145 [facility] 0.5 mg/dL 0.2-1.0 [facility] 7.1 g/dL 6.4-8.2 [facility] Platelet mean volume Auto (B ld) [Entitic vol]on 05-26-2024 Platelet mean volume (Bld) [Entitic vol] 10.6 fL 9.5-13.5 [facility] Platelets Auto (Bld) [#/Vol] on 05-26-2024 Platelets (Bld) [#/Vol] 215 10 3/uL 150-450 [facility] RBC Auto (Bld) [#/Vol]on RBC (Bld) [#/Vol] 3.95 10 6/uL Low 4.20-5.40 [facility] Serum or plasma albumin/glob ulin mass ratioon 05-26-2024 Albumin/Globulin [Mass ratio] 0.6 {ratio} [facility] Serum or plasma anion gap de terminationon 05-26-2024 Anion gap [Moles/Vol] 13.3 mmol/L [facility] ECG 12 lead ECGon 05-22-2024 ECG 12 lead ECG [facility] Main [place] [address] [place] [address] Electrocardiograph Report Signed Patient: Joe Call MR#: [id number] 0 : 1945 Acct:[id number] Age/Sex: 78 / F ADM Date: 05/22/24 Loc: ER Room: Type: [facility] ER Attending Dr: Ordering Provider: Jesus Barbour [...] Sinus bradycardia Confirmed by Daniele Jane DO ([id number]) on 05/22/2024 4:08:55 PM Referred By: Electronically Signed By: Daniele Jane DO Transcribed By: MUS Signed By Daniele Jane DO [id number] Normal [facility] 37on 05-20-2024 37 Have [...] pillows than normal or in recliner. Normal [facility] Estimated glomerular filtrat ion rate (GFR) non- Americanon 05-20-2024 GFR/1.73 sq M.predicted among non-blacks MDRD (S/P/Bld) [Vol rate/Area] 39 mL/min/{1.73_m2} Low >=60 [facility] Laboratory - Chemistry and C hemistry - challengeon 05-20-2024 Calcium [Mass/Vol] 8.8 mg/dL 8.5-10.1 [facility] Chloride [Moles/Vol] 103 mmol/L 98-107 [facility] CO2 [Moles/Vol] 24.3 mmol/L 21.0-32.0 [facility] Creatinine [Mass/Vol] 1.32 mg/dL High 0.55-1.02 [facility] GFR/1.73 sq M.predicted MDRD (S/P/Bld) [Vol rate/Area] 47 mL/min/{1.73_m2} Low >=60 [facility] Glucose [Mass/Vol] 243 mg/dL High 74-106 [facility] Potassium [Moles/Vol] 5.0 mmol/L 3.5-5.1 [facility] Sodium [Moles/Vol] 138 mmol/L 136-145 [facility] Urea nitrogen [Mass/Vol] 35.0 mg/dL High 7.0-18.0 [facility] Urea nitrogen/Creatinine [Mass ratio] 26.5 mg/mg [facility] No Panel Informationon 05-20 26.5 [facility] 35.0 mg/dL High 7.0-18.0 [facility] 8.8 mg/dL 8.5-10.1 [facility] 103 mmol/L 98-107 [facility] 24.3 mmol/L 21.0-32.0 [facility] 1.32 mg/dL High 0.55-1.02 [facility] 47 Low >=60 [facility] 243 mg/dL High 74-106 [facility] 5.0 mmol/L 3.5-5.1 [facility] 138 mmol/L 136-145 [facility] Office Visiton 05-20-2024 Follow-up visit [id number] Joe Call 1945 F Date Provider Department Center 05/20/2024 [facility] Family History Problem Relation Age of Onset Coronary artery disease Other Diabetes Other Polycystic kidney disease Other Family Status - Relation Status Age at Other Level of Service:15238 [place] OFFICE/OUTPATIENT ESTABLISHED MOD MDM 30 MIN Normal [facility] Serum or plasma anion gap de terminationon 05-20-2024 Anion gap [Moles/Vol] 15.7 mmol/L [facility] Basophils Auto (Bld) [#/Vol] on 05-06-2024 Basophils (Bld) [#/Vol] 0.1 10 3/uL 0.0-0.1 [facility] Basophils/100 WBC Auto (Bld) on 05-06-2024 Basophils/100 WBC (Bld) 0.9 % 0.2-2.0 F [facility] Eosinophils/100 WBC Auto (Bl d)on 05-06-2024 Eosinophils/100 WBC (Bld) 2.7 % 0.9-7.0 [facility] Erythrocyte distribution wid th Auto (RBC) [Ratio]on 05-06-2024 Erythrocyte distribution width (RBC) [Ratio] 13.5 % 11.0-15.0 [facility] Estimated glomerular filtrat ion rate (GFR) non- Americanon 05-06-2024 GFR/1.73 sq M.predicted among non-blacks MDRD (S/P/Bld) [Vol rate/Area] 32 mL/min/{1.73_m2} Low >=60 [facility] Globulin Calc (S) [Mass/Vol] on 05-06-2024 Globulin (S) [Mass/Vol] 4.3 g/dL F [facility] Hematocrit Auto (Bld) [Volum e fraction]on 05-06-2024 Hematocrit (Bld) [Volume fraction] 34.6 % Low 36.0-48.0 [facility] Hemoglobin [Mass/volume] in Bloodon 05-06-2024 Hemoglobin (Bld) [Mass/Vol] 11.1 g/dL Low 12.0-16.0 [facility] Laboratory - Chemistry and C hemistry - challengeon 05-06-2024 Albumin [Mass/Vol] 2.5 g/dL Low 3.4-5.0 [facility] ALP [Catalytic activity/Vol] 75 U/L 46-116 [facility] ALT [Catalytic activity/Vol] 16 U/L 14-59 [facility] AST [Catalytic activity/Vol] 11 U/L Low 15-37 [facility] Bilirubin [Mass/Vol] 0.4 mg/dL 0.2-1.0 [facility] Calcium [Mass/Vol] 8.4 mg/dL Low 8.5-10.1 [facility] Chloride [Moles/Vol] 107 mmol/L 98-107 [facility] CO2 [Moles/Vol] 25.7 mmol/L 21.0-32.0 [facility] Creatinine [Mass/Vol] 1.58 mg/dL High 0.55-1.02 [facility] GFR/1.73 sq M.predicted MDRD (S/P/Bld) [Vol rate/Area] 38 mL/min/{1.73_m2} Low >=60 [facility] Glucose [Mass/Vol] 146 mg/dL High 74-106 [facility] Magnesium [Mass/Vol] 1.6 mg/dL Low 1.8-2.4 [facility] Natriuretic peptide B (Bld) [Mass/Vol] 2762.0 pg/mL High <=1800.0 [facility] Comment on above: RESULTS CALLED TO CLARITZA SELLERS RN @BY Alla Venegas at [phone] Potassium [Moles/Vol] 4.1 mmol/L 3.5-5.1 [facility] Protein [Mass/Vol] 6.8 g/dL 6.4-8.2 [facility] Sodium [Moles/Vol] 141 mmol/L 136-145 [facility] Urea nitrogen [Mass/Vol] 49.0 mg/dL High 7.0-18.0 [facility] Urea nitrogen/Creatinine [Mass ratio] 31.0 mg/mg [facility] Laboratory - Hematology and Cell countson 05-06-2024 Immature granulocytes/100 WBC (Bld) 0.1 % 0.0-0.5 [facility] Leukocytes [#/volume] correc gali for nucleated erythrocytes in Blood by Automated counon 05-06-2024 WBC corrected for nucl RBC Auto (Bld) [#/Vol] 6.7 10 3/uL 4.0-11.0 [facility] Lymphocytes Auto (Bld) [#/Vo l]on 05-06-2024 Lymphocytes (Bld) [#/Vol] 1.5 10 3/uL 1.2-3.8 [facility] Lymphocytes/100 WBC Auto (Bl d)on 05-06-2024 Lymphocytes/100 WBC (Bld) 21.8 % 20.5-60.0 [facility] MCH Auto (RBC) [Entitic mass ]on 05-06-2024 MCH (RBC) [Entitic mass] 29.0 pg 26.7-34.0 [facility] MCHC Auto (RBC) [Mass/Vol]on 05-06-2024 MCHC (RBC) [Mass/Vol] 32.1 g/dL 29.9-35.2 [facility] MCV Auto (RBC) [Entitic vol] on 05-06-2024 MCV (RBC) [Entitic vol] 90.3 fL 81.0-99.0 [facility] Monocytes Auto (Bld) [#/Vol] on 05-06-2024 Monocytes (Bld) [#/Vol] 0.7 10 3/uL 0.3-0.8 [facility] Monocytes/100 WBC Auto (Bld) on 05-06-2024 Monocytes/100 WBC (Bld) 10.6 % 1.7-12.0 [facility] Neutrophils Auto (Bld) [#/Vo l]on 05-06-2024 Neutrophils (Bld) [#/Vol] 4.3 10 3/uL 1.4-6.5 [facility] Neutrophils/100 WBC Auto (Bl d)on 05-06-2024 Neutrophils/100 WBC (Bld) 63.9 % 43.0-75.0 [facility] No Panel Informationon 05-06 Eosinophils # (Auto) 0.2 10 3/uL 0.0-0.7 [facility] Immature Granulocyte # (Auto) 0.01 10 3/uL 0.00-0.03 [facility] Troponin I High Sensitivity 13.2 pg/mL 4.0-51.3 [facility] Comment on above: CUT-OFF POINTS [...] AND CLINICAL INFORMATION. 2762.0 pg/mL High <=1800.0 [facility] 13.2 pg/mL 4.0-51.3 [facility] 1.6 mg/dL Low 1.8-2.4 [facility] 2.5 g/dL Low 3.4-5.0 [facility] 0.2 10 3/uL 0.0-0.7 [facility] 75 U/L 46-116 [facility] 16 U/L 14-59 [facility] 11 U/L Low 15-37 [facility] 31.0 [facility] 0.01 10 3/uL 0.00-0.03 [facility] 49.0 mg/dL High 7.0-18.0 [facility] 0.1 % 0.0-0.5 [facility] 8.4 mg/dL Low 8.5-10.1 [facility] 107 mmol/L 98-107 [facility] 25.7 mmol/L 21.0-32.0 [facility] 1.58 mg/dL High 0.55-1.02 [facility] 38 Low >=60 [facility] 146 mg/dL High 74-106 [facility] 4.1 mmol/L 3.5-5.1 [facility] 141 mmol/L 136-145 [facility] 0.4 mg/dL 0.2-1.0 [facility] 6.8 g/dL 6.4-8.2 [facility] Platelet mean volume Auto (B ld) [Entitic vol]on 05-06-2024 Platelet mean volume (Bld) [Entitic vol] 11.3 fL 9.5-13.5 [facility] Platelets Auto (Bld) [#/Vol] on 05-06-2024 Platelets (Bld) [#/Vol] 146 10 3/uL Low 150-450 [facility] RBC Auto (Bld) [#/Vol]on RBC (Bld) [#/Vol] 3.83 10 6/uL Low 4.20-5.40 [facility] Serum or plasma albumin/glob ulin mass ratioon 05-06-2024 Albumin/Globulin [Mass ratio] 0.6 {ratio} [facility] Serum or plasma anion gap de terminationon 05-06-2024 Anion gap [Moles/Vol] 12.4 mmol/L [facility] Basophils Auto (Bld) [#/Vol] on 05-05-2024 Basophils (Bld) [#/Vol] 0.1 10 3/uL 0.0-0.1 [facility] Basophils/100 WBC Auto (Bld) on 05-05-2024 Basophils/100 WBC (Bld) 0.9 % 0.2-2.0 [facility] Eosinophils/100 WBC Auto (Bl d)on 05-05-2024 Eosinophils/100 WBC (Bld) 1.9 % 0.9-7.0 [facility] Erythrocyte distribution wid th Auto (RBC) [Ratio]on 05-05-2024 Erythrocyte distribution width (RBC) [Ratio] 13.4 % 11.0-15.0 [facility] Estimated glomerular filtrat ion rate (GFR) non- Americanon 05-05-2024 GFR/1.73 sq M.predicted among non-blacks MDRD (S/P/Bld) [Vol rate/Area] 29 mL/min/{1.73_m2} Low >=60 [facility] Globulin Calc (S) [Mass/Vol] on 05-05-2024 Globulin (S) [Mass/Vol] 4.4 g/dL [facility] Hematocrit Auto (Bld) [Volum e fraction]on 05-05-2024 Hematocrit (Bld) [Volume fraction] 33.8 % Low 36.0-48.0 [facility] Hemoglobin [Mass/volume] in Bloodon 05-05-2024 Hemoglobin (Bld) [Mass/Vol] 11.1 g/dL Low 12.0-16.0 [facility] Laboratory - Chemistry and C hemistry - challengeon 05-05-2024 Albumin [Mass/Vol] 2.6 g/dL Low 3.4-5.0 [facility] ALP [Catalytic activity/Vol] 74 U/L 46-116 [facility] ALT [Catalytic activity/Vol] 17 U/L 14-59 [facility] AST [Catalytic activity/Vol] 12 U/L Low 15-37 [facility] Bilirubin [Mass/Vol] 0.4 mg/dL 0.2-1.0 [facility] Calcium [Mass/Vol] 6.1 mg/dL Low 8.5-10.1 [facility] Chloride [Moles/Vol] 105 mmol/L 98-107 [facility] CO2 [Moles/Vol] 24.1 mmol/L 21.0-32.0 [facility] Creatinine [Mass/Vol] 1.71 mg/dL High 0.55-1.02 [facility] GFR/1.73 sq M.predicted MDRD (S/P/Bld) [Vol rate/Area] 35 mL/min/{1.73_m2} Low >=60 [facility] Glucose [Mass/Vol] 202 mg/dL High 74-106 [facility] Magnesium [Mass/Vol] 1.5 mg/dL Low 1.8-2.4 [facility] Natriuretic peptide B (Bld) [Mass/Vol] 2725.0 pg/mL High <=1800.0 [facility] Comment on above: RESULTS CALLED TO Frances Bryant (Austyn)@BY Franchesca Huynh MLT at 0547 Potassium [Moles/Vol] 5.9 mmol/L High 3.5-5.1 [facility] Protein [Mass/Vol] 7.0 g/dL 6.4-8.2 [facility] Sodium [Moles/Vol] 139 mmol/L 136-145 [facility] Urea nitrogen [Mass/Vol] 69.0 mg/dL High 7.0-18.0 [facility] Urea nitrogen/Creatinine [Mass ratio] 40.4 mg/mg [facility] Laboratory - Hematology and Cell countson 05-05-2024 Immature granulocytes/100 WBC (Bld) 0.3 % 0.0-0.5 [facility] Leukocytes [#/volume] correc gali for nucleated erythrocytes in Blood by Automated counon 05-05-2024 WBC corrected for nucl RBC Auto (Bld) [#/Vol] 6.9 10 3/uL 4.0-11.0 [facility] Lymphocytes Auto (Bld) [#/Vo l]on 05-05-2024 Lymphocytes (Bld) [#/Vol] 1.2 10 3/uL 1.2-3.8 [facility] Lymphocytes/100 WBC Auto (Bl d)on 05-05-2024 Lymphocytes/100 WBC (Bld) 18.0 % Low 20.5-60.0 [facility] MCH Auto (RBC) [Entitic mass ]on 05-05-2024 MCH (RBC) [Entitic mass] 29.3 pg 26.7-34.0 [facility] MCHC Auto (RBC) [Mass/Vol]on 05-05-2024 MCHC (RBC) [Mass/Vol] 32.8 g/dL 29.9-35.2 [facility] MCV Auto (RBC) [Entitic vol] on 05-05-2024 MCV (RBC) [Entitic vol] 89.2 fL 81.0-99.0 [facility] Monocytes Auto (Bld) [#/Vol] on 05-05-2024 Monocytes (Bld) [#/Vol] 0.6 10 3/uL 0.3-0.8 [facility] Monocytes/100 WBC Auto (Bld) on 05-05-2024 Monocytes/100 WBC (Bld) 8.7 % 1.7-12.0 [facility] Neutrophils Auto (Bld) [#/Vo l]on 05-05-2024 Neutrophils (Bld) [#/Vol] 4.8 10 3/uL 1.4-6.5 [facility] Neutrophils/100 WBC Auto (Bl d)on 05-05-2024 Neutrophils/100 WBC (Bld) 70.2 % 43.0-75.0 [facility] No Panel Informationon 05-05 Eosinophils # (Auto) 0.1 10 3/uL 0.0-0.7 [facility] Immature Granulocyte # (Auto) 0.02 10 3/uL 0.00-0.03 [facility] Troponin I High Sensitivity 14.0 pg/mL 4.0-51.3 [facility] Comment on above: CUT-OFF POINTS [...] AND CLINICAL INFORMATION. 2725.0 pg/mL High <=1800.0 [facility] 14.0 pg/mL 4.0-51.3 [facility] 1.5 mg/dL Low 1.8-2.4 [facility] 2.6 g/dL Low 3.4-5.0 [facility] 0.1 10 3/uL 0.0-0.7 [facility] 74 U/L 46-116 [facility] 17 U/L 14-59 [facility] 12 U/L Low 15-37 [facility] 40.4 [facility] 0.02 10 3/uL 0.00-0.03 [facility] 69.0 mg/dL High 7.0-18.0 [facility] 0.3 % 0.0-0.5 [facility] 6.1 mg/dL Low 8.5-10.1 [facility] 105 mmol/L 98-107 [facility] 24.1 mmol/L 21.0-32.0 [facility] 1.71 mg/dL High 0.55-1.02 [facility] 35 Low >=60 [facility] 202 mg/dL High 74-106 [facility] 5.9 mmol/L High 3.5-5.1 [facility] 139 mmol/L 136-145 [facility] 0.4 mg/dL 0.2-1.0 [facility] 7.0 g/dL 6.4-8.2 [facility] Platelet mean volume Auto (B ld) [Entitic vol]on 05-05-2024 Platelet mean volume (Bld) [Entitic vol] 11.8 fL 9.5-13.5 [facility] Platelets Auto (Bld) [#/Vol] on 05-05-2024 Platelets (Bld) [#/Vol] 173 10 3/uL 150-450 [facility] RBC Auto (Bld) [#/Vol]on RBC (Bld) [#/Vol] 3.79 10 6/uL Low 4.20-5.40 [facility] Serum or plasma albumin/glob ulin mass ratioon 05-05-2024 Albumin/Globulin [Mass ratio] 0.6 {ratio} [facility] Serum or plasma anion gap de terminationon 05-05-2024 Anion gap [Moles/Vol] 15.8 mmol/L [facility] Basophils Auto (Bld) [#/Vol] on 05-04-2024 Basophils (Bld) [#/Vol] 0.1 10 3/uL 0.0-0.1 [facility] Basophils/100 WBC Auto (Bld) on 05-04-2024 Basophils/100 WBC (Bld) 0.9 % 0.2-2.0 [facility] Eosinophils/100 WBC Auto (Bl d)on 05-04-2024 Eosinophils/100 WBC (Bld) 1.7 % 0.9-7.0 [facility] Erythrocyte distribution wid th Auto (RBC) [Ratio]on 05-04-2024 Erythrocyte distribution width (RBC) [Ratio] 13.6 % 11.0-15.0 [facility] Estimated glomerular filtrat ion rate (GFR) non- Americanon 05-04-2024 GFR/1.73 sq M.predicted among non-blacks MDRD (S/P/Bld) [Vol rate/Area] 21 mL/min/{1.73_m2} Low >=60 [facility] Globulin Calc (S) [Mass/Vol] on 05-04-2024 Globulin (S) [Mass/Vol] 4.9 g/dL [facility] Hematocrit Auto (Bld) [Volum e fraction]on 05-04-2024 Hematocrit (Bld) [Volume fraction] 37.6 % 36.0-48.0 [facility] Hemoglobin [Mass/volume] in Bloodon 05-04-2024 Hemoglobin (Bld) [Mass/Vol] 12.0 g/dL 12.0-16.0 [facility] Laboratory - Chemistry and C hemistry - challengeon 05-04-2024 Bilirubin Ql (U) Negative NEGATIVE [facility] Glucose (U) [Mass/Vol] 250 mg/dL Abnormal NEGATIVE [facility] Ketones Ql (U) Negative NEGATIVE [facility] pH (U) 6.0 [pH] 5.0-9.0 [facility] Specific gravity (U) [Rel density] 1.015 1.005-1.025 [facility] Urobilinogen Qn (U) 0.2 {Meka'U}/dL 0.2-1.0 [facility] Albumin [Mass/Vol] 2.8 g/dL Low 3.4-5.0 [facility] ALP [Catalytic activity/Vol] 86 U/L 46-116 [facility] ALT [Catalytic activity/Vol] 16 U/L 14-59 [facility] Ammonia (P) [Moles/Vol] 12 umol/L 11-32 [facility] AST [Catalytic activity/Vol] 8 U/L Low 15-37 [facility] Bilirubin [Mass/Vol] 0.4 mg/dL 0.2-1.0 [facility] Calcium [Mass/Vol] 8.8 mg/dL 8.5-10.1 [facility] Chloride [Moles/Vol] 101 mmol/L 98-107 [facility] CO2 [Moles/Vol] 22.4 mmol/L 21.0-32.0 [facility] Creatinine [Mass/Vol] 2.24 mg/dL High 0.55-1.02 [facility] GFR/1.73 sq M.predicted MDRD (S/P/Bld) [Vol rate/Area] 26 mL/min/{1.73_m2} Low >=60 [facility] Glucose [Mass/Vol] 369 mg/dL High 74-106 [facility] Lactate [Moles/Vol] 1.2 mmol/L 0.4-2.0 [facility] Magnesium [Mass/Vol] 1.7 mg/dL Low 1.8-2.4 [facility] Natriuretic peptide B (Bld) [Mass/Vol] 2342.0 pg/mL High <=1800.0 [facility] Comment on above: RESULTS CALLED TO RENETTA Renteria RN @BY Andrea Long, MLTat 1126 Potassium [Moles/Vol] 5.6 mmol/L High 3.5-5.1 [facility] Protein [Mass/Vol] 7.7 g/dL 6.4-8.2 [facility] Sodium [Moles/Vol] 134 mmol/L Low 136-145 [facility] T4 [Mass/Vol] 11.80 ug/dL 4.80-13.90 [facility] TSH Qn 0.933 m[IU]/L 0.358-3.740 [facility] Urea nitrogen [Mass/Vol] 86.0 mg/dL High 7.0-18.0 [facility] Comment on above: RESULTS CALLED TO RENETTA Renteria RN @BY Andrea Long, MLTat 1126 Urea nitrogen/Creatinine [Mass ratio] 38.4 mg/mg [facility] Laboratory - Hematology and Cell countson 05-04-2024 Immature granulocytes/100 WBC (Bld) 0.3 % 0.0-0.5 [facility] Laboratory - Microbiology an d Antimicrobial susceptibilityOrdered By: Carl Morales on 05-04-2024 Bacteria identified Cx Nom (U) [facility] Laboratory - Specimen inform ationon 05-04-2024 Appearance (U) SLIGHTLY CLOUDY Abnormal CLEAR [facility] Color (U) YELLOW YELLOW [facility] Laboratory - Urinalysison Hyaline casts LM Ql (Urine sed) RARE [facility] Leukocyte esterase Test strip Ql (U) Negative NEGATIVE [facility] Mucus Ql (Urine sed) NONE SEEN NONE SEEN [facility] Nitrite Ql (U) Negative NEGATIVE [facility] Protein Ql (U) 100 mg/dL Abnormal NEG/TRACE [facility] Leukocytes [#/volume] correc gali for nucleated erythrocytes in Blood by Automated counon 05-04-2024 WBC corrected for nucl RBC Auto (Bld) [#/Vol] 6.9 10 3/uL 4.0-11.0 [facility] Lymphocytes Auto (Bld) [#/Vo l]on 05-04-2024 Lymphocytes (Bld) [#/Vol] 1.2 10 3/uL 1.2-3.8 [facility] Lymphocytes/100 WBC Auto (Bl d)on 05-04-2024 Lymphocytes/100 WBC (Bld) 17.8 % Low 20.5-60.0 [facility] MCH Auto (RBC) [Entitic mass ]on 05-04-2024 MCH (RBC) [Entitic mass] 29.3 pg 26.7-34.0 [facility] MCHC Auto (RBC) [Mass/Vol]on 05-04-2024 MCHC (RBC) [Mass/Vol] 31.9 g/dL 29.9-35.2 [facility] MCV Auto (RBC) [Entitic vol] on 05-04-2024 MCV (RBC) [Entitic vol] 91.9 fL 81.0-99.0 [facility] Monocytes Auto (Bld) [#/Vol] on 05-04-2024 Monocytes (Bld) [#/Vol] 0.7 10 3/uL 0.3-0.8 [facility] Monocytes/100 WBC Auto (Bld) on 05-04-2024 Monocytes/100 WBC (Bld) 10.4 % 1.7-12.0 [facility] Neutrophils Auto (Bld) [#/Vo l]on 05-04-2024 Neutrophils (Bld) [#/Vol] 4.8 10 3/uL 1.4-6.5 [facility] Neutrophils/100 WBC Auto (Bl d)on 05-04-2024 Neutrophils/100 WBC (Bld) 68.9 % 43.0-75.0 [facility] No Panel Informationon 05-04 Acetone Level Negative NEGATIVE [facility] Negative NEGATIVE [facility] Urine Bacteria MODERATE #/HPF Abnormal NONE SEEN [facility] Urine Culture Reflexed ALREADY ORDERED [facility] Urine Microscopic Review YES [facility] Urine Occult Blood MODERATE Abnormal NEGATIVE [facility] Urine Other Casts SEEN #/LPF Abnormal NONE SEEN [facility] Urine Other Crystals None Seen #/HPF None Seen [facility] Urine RBC 2-5 #/HPF Abnormal 0-2 [facility] Urine Squamous Epithelial Cells FEW #/LPF Abnormal NONE/RARE [facility] Urine WBC 2-5 #/HPF Abnormal NONE SEEN [facility] ALREADY ORDERED [facility] YES [facility] SEEN #/LPF Abnormal NONE SEEN [facility] Negative NEGATIVE [facility] None Seen #/HPF None Seen [facility] MODERATE Abnormal NEGATIVE [facility] MODERATE #/HPF Abnormal NONE SEEN [facility] SLIGHTLY CLOUDY Abnormal CLEAR [facility] RARE [facility] YELLOW YELLOW [facility] NONE SEEN NONE SEEN [facility] 250 mg/dL Abnormal NEGATIVE [facility] 2-5 #/HPF Abnormal NONE SEEN [facility] FEW #/LPF Abnormal [facility] 6.0 5.0-9.0 [facility] 100 mg/dL Abnormal NEG/TRACE [facility] 1.015 1.005-1.025 [facility] 0.2 EU/dL 0.2-1.0 [facility] Eosinophils # (Auto) 0.1 10 3/uL 0.0-0.7 [facility] Immature Granulocyte # (Auto) 0.02 10 3/uL 0.00-0.03 [facility] Troponin I High Sensitivity 10.5 pg/mL 4.0-51.3 [facility] Comment on above: CUT-OFF POINTS [...] Partial Pressure CO2 38.5 mm[Hg] Low 40.0-52.0 [facility] Venous Blood pH 7.353 7.330-7.430 [facility] 0.933 u[iU]/mL 0.358-3.740 [facility] 11.80 ug/dL 4.80-13.90 [facility] 1.7 mg/dL Low 1.8-2.4 [facility] 2342.0 pg/mL High <=1800.0 [facility] 1.2 mmol/L 0.4-2.0 [facility] 10.5 pg/mL 4.0-51.3 [facility] 12 umol/L 11-32 [facility] 38.5 mm[Hg] Low 40.0-52.0 [facility] 7.353 7.330-7.430 [facility] 2.8 g/dL Low 3.4-5.0 [facility] 0.1 10 3/uL 0.0-0.7 [facility] 86 U/L 46-116 [facility] 16 U/L 14-59 [facility] 8 U/L Low 15-37 [facility] 38.4 [facility] 0.02 10 3/uL 0.00-0.03 [facility] 86.0 mg/dL High 7.0-18.0 [facility] 0.3 % 0.0-0.5 [facility] 8.8 mg/dL 8.5-10.1 [facility] 101 mmol/L 98-107 [facility] 22.4 mmol/L 21.0-32.0 [facility] 2.24 mg/dL High 0.55-1.02 [facility] 26 Low >=60 [facility] 369 mg/dL High 74-106 [facility] 5.6 mmol/L High 3.5-5.1 [facility] 134 mmol/L Low 136-145 [facility] 0.4 mg/dL 0.2-1.0 [facility] 7.7 g/dL 6.4-8.2 [facility] No Panel InformationOrdered By: LAMINE SINGH on 05-04-2024 Blood Culture 1 [facility] Platelet mean volume Auto (B ld) [Entitic vol]on 05-04-2024 Platelet mean volume (Bld) [Entitic vol] 11.4 fL 9.5-13.5 [facility] Platelets Auto (Bld) [#/Vol] on 05-04-2024 Platelets (Bld) [#/Vol] 160 10 3/uL 150-450 [facility] RBC Auto (Bld) [#/Vol]on RBC (Bld) [#/Vol] 4.09 10 6/uL Low 4.20-5.40 [facility] Serum or plasma albumin/glob ulin mass ratioon 05-04-2024 Albumin/Globulin [Mass ratio] 0.6 {ratio} [facility] Serum or plasma anion gap de terminationon 05-04-2024 Anion gap [Moles/Vol] 16.2 mmol/L [facility] Basophils Auto (Bld) [#/Vol] on 05-01-2024 Basophils (Bld) [#/Vol] 0.1 10 3/uL 0.0-0.1 [facility] Basophils/100 WBC Auto (Bld) on 05-01-2024 Basophils/100 WBC (Bld) 0.7 % 0.2-2.0 [facility] Eosinophils/100 WBC Auto (Bl d)on 05-01-2024 Eosinophils/100 WBC (Bld) 2.3 % 0.9-7.0 [facility] Erythrocyte distribution wid th Auto (RBC) [Ratio]on 05-01-2024 Erythrocyte distribution width (RBC) [Ratio] 13.6 % 11.0-15.0 [facility] Estimated glomerular filtrat ion rate (GFR) non- Americanon 05-01-2024 GFR/1.73 sq M.predicted among non-blacks MDRD (S/P/Bld) [Vol rate/Area] 22 mL/min/{1.73_m2} Low >=60 [facility] Globulin Calc (S) [Mass/Vol] on 05-01-2024 Globulin (S) [Mass/Vol] 4.4 g/dL [facility] Hematocrit Auto (Bld) [Volum e fraction]on 05-01-2024 Hematocrit (Bld) [Volume fraction] 37.5 % 36.0-48.0 [facility] Hemoglobin [Mass/volume] in Bloodon 05-01-2024 Hemoglobin (Bld) [Mass/Vol] 12.1 g/dL 12.0-16.0 [facility] Laboratory - Chemistry and C hemistry - challengeon 05-01-2024 Calcium [Mass/Vol] 9.2 mg/dL 8.5-10.1 [facility] Chloride [Moles/Vol] 104 mmol/L 98-107 [facility] CO2 [Moles/Vol] 23.2 mmol/L 21.0-32.0 [facility] Creatinine [Mass/Vol] 2.14 mg/dL High 0.55-1.02 [facility] GFR/1.73 sq M.predicted MDRD (S/P/Bld) [Vol rate/Area] 27 mL/min/{1.73_m2} Low >=60 [facility] Glucose [Mass/Vol] 220 mg/dL High 74-106 [facility] Potassium [Moles/Vol] 5.3 mmol/L High 3.5-5.1 [facility] Sodium [Moles/Vol] 134 mmol/L Low 136-145 [facility] Urea nitrogen [Mass/Vol] 87.0 mg/dL High 7.0-18.0 [facility] Comment on above: RESULTS CALLED TO Klaus Michaels RN @BY Sury French [id number] Urea nitrogen/Creatinine [Mass ratio] 40.7 mg/mg [facility] Albumin [Mass/Vol] 2.8 g/dL Low 3.4-5.0 [facility] ALP [Catalytic activity/Vol] 80 U/L 46-116 [facility] ALT [Catalytic activity/Vol] 16 U/L 14-59 [facility] AST [Catalytic activity/Vol] 11 U/L Low 15-37 [facility] Bilirubin [Mass/Vol] 0.4 mg/dL 0.2-1.0 [facility] Natriuretic peptide B (Bld) [Mass/Vol] 1624.0 pg/mL <=1800.0 [facility] Protein [Mass/Vol] 7.2 g/dL 6.4-8.2 [facility] Laboratory - Hematology and Cell countson 05-01-2024 Immature granulocytes/100 WBC (Bld) 0.1 % 0.0-0.5 [facility] Leukocytes [#/volume] correc gali for nucleated erythrocytes in Blood by Automated counon 05-01-2024 WBC corrected for nucl RBC Auto (Bld) [#/Vol] 7.4 10 3/uL 4.0-11.0 [facility] Lymphocytes Auto (Bld) [#/Vo l]on 05-01-2024 Lymphocytes (Bld) [#/Vol] 2.2 10 3/uL 1.2-3.8 [facility] Lymphocytes/100 WBC Auto (Bl d)on 05-01-2024 Lymphocytes/100 WBC (Bld) 29.4 % 20.5-60.0 [facility] MCH Auto (RBC) [Entitic mass ]on 05-01-2024 MCH (RBC) [Entitic mass] 29.2 pg 26.7-34.0 [facility] MCHC Auto (RBC) [Mass/Vol]on 05-01-2024 MCHC (RBC) [Mass/Vol] 32.3 g/dL 29.9-35.2 [facility] MCV Auto (RBC) [Entitic vol] on 05-01-2024 MCV (RBC) [Entitic vol] 90.4 fL 81.0-99.0 [facility] [facility] Monocytes Auto (Bld) [#/Vol] on 05-01-2024 Monocytes (Bld) [#/Vol] 0.9 10 3/uL High 0.3-0.8 [facility] Monocytes/100 WBC Auto (Bld) on 05-01-2024 Monocytes/100 WBC (Bld) 11.5 % 1.7-12.0 [facility] Neutrophils Auto (Bld) [#/Vo l]on 05-01-2024 Neutrophils (Bld) [#/Vol] 4.1 10 3/uL 1.4-6.5 [facility] Neutrophils/100 WBC Auto (Bl d)on 05-01-2024 Neutrophils/100 WBC (Bld) 56.0 % 43.0-75.0 [facility] No Panel Informationon 05-01 40.7 [facility] 87.0 mg/dL High 7.0-18.0 [facility] 9.2 mg/dL 8.5-10.1 [facility] 104 mmol/L 98-107 [facility] 23.2 mmol/L 21.0-32.0 [facility] 2.14 mg/dL High 0.55-1.02 [facility] 27 Low >=60 [facility] 220 mg/dL High 74-106 [facility] 5.3 mmol/L High 3.5-5.1 [facility] 134 mmol/L Low 136-145 [facility] Eosinophils # (Auto) 0.2 10 3/uL 0.0-0.7 [facility] Immature Granulocyte # (Auto) 0.01 10 3/uL 0.00-0.03 [facility] 1624.0 pg/mL <=1800.0 [facility] 2.8 g/dL Low 3.4-5.0 [facility] 0.2 10 3/uL 0.0-0.7 [facility] 80 U/L 46-116 [facility] 16 U/L 14-59 [facility] 11 U/L Low 15-37 [facility] 0.01 10 3/uL 0.00-0.03 [facility] 0.1 % 0.0-0.5 [facility] 0.4 mg/dL 0.2-1.0 [facility] 7.2 g/dL 6.4-8.2 [facility] Platelet mean volume Auto (B ld) [Entitic vol]on 05-01-2024 Platelet mean volume (Bld) [Entitic vol] 11.6 fL 9.5-13.5 [facility] Platelets Auto (Bld) [#/Vol] on 05-01-2024 Platelets (Bld) [#/Vol] 151 10 3/uL 150-450 [facility] RBC Auto (Bld) [#/Vol]on RBC (Bld) [#/Vol] 4.15 10 6/uL Low 4.20-5.40 [facility] Serum or plasma albumin/glob ulin mass ratioon 05-01-2024 Albumin/Globulin [Mass ratio] 0.6 {ratio} [facility] Serum or plasma anion gap de terminationon 05-01-2024 Anion gap [Moles/Vol] 12.1 mmol/L [facility] Basophils Auto (Bld) [#/Vol] on 04-30-2024 Basophils (Bld) [#/Vol] 0.1 10 3/uL 0.0-0.1 [facility] Basophils/100 WBC Auto (Bld) on 04-30-2024 Basophils/100 WBC (Bld) 0.9 % 0.2-2.0 [facility] Eosinophils/100 WBC Auto (Bl d)on 04-30-2024 Eosinophils/100 WBC (Bld) 2.4 % 0.9-7.0 [facility] Erythrocyte distribution wid th Auto (RBC) [Ratio]on 04-30-2024 Erythrocyte distribution width (RBC) [Ratio] 13.5 % 11.0-15.0 [facility] Estimated glomerular filtrat ion rate (GFR) non- Americanon 04-30-2024 GFR/1.73 sq M.predicted among non-blacks MDRD (S/P/Bld) [Vol rate/Area] 15 mL/min/{1.73_m2} Low >=60 [facility] Fibrin D-dimer [Presence] in Platelet poor plasma by Latex agglutinationon 04-30-2024 Fibrin D-dimer LA Ql (PPP) 0.24 mg/L FEU <=0.59 [facility] Comment on above: Increases in D-Dimer concentration [...] Hematocrit (Bld) [Volume fraction] 38.6 % 36.0-48.0 [facility] Hemoglobin [Mass/volume] in Bloodon 04-30-2024 Hemoglobin (Bld) [Mass/Vol] 12.5 g/dL 12.0-16.0 [facility] Laboratory - Chemistry and C hemistry - challengeon 04-30-2024 Calcium [Mass/Vol] 9.0 mg/dL 8.5-10.1 [facility] Chloride [Moles/Vol] 100 mmol/L 98-107 [facility] CO2 [Moles/Vol] 24.4 mmol/L 21.0-32.0 [facility] Creatinine [Mass/Vol] 3.02 mg/dL High 0.55-1.02 [facility] GFR/1.73 sq M.predicted MDRD (S/P/Bld) [Vol rate/Area] 18 mL/min/{1.73_m2} Low >=60 [facility] Glucose [Mass/Vol] 271 mg/dL High 74-106 [facility] Magnesium [Mass/Vol] 1.8 mg/dL 1.8-2.4 [facility] Natriuretic peptide B (Bld) [Mass/Vol] 1485.0 pg/mL <=1800.0 [facility] Potassium [Moles/Vol] 5.3 mmol/L High 3.5-5.1 [facility] Sodium [Moles/Vol] 133 mmol/L Low 136-145 [facility] Urea nitrogen [Mass/Vol] 99.0 mg/dL High 7.0-18.0 [facility] Comment on above: RESULTS CALLED TO Yoel WADE)@BY Franchesca Huynh MLT at [phone] Urea nitrogen/Creatinine [Mass ratio] 32.8 mg/mg [facility] Laboratory - Hematology and Cell countson 04-30-2024 Immature granulocytes/100 WBC (Bld) 0.1 % 0.0-0.5 [facility] Leukocytes [#/volume] correc gali for nucleated erythrocytes in Blood by Automated counon 04-30-2024 WBC corrected for nucl RBC Auto (Bld) [#/Vol] 7.5 10 3/uL 4.0-11.0 [facility] Lymphocytes Auto (Bld) [#/Vo l]on 04-30-2024 Lymphocytes (Bld) [#/Vol] 2.1 10 3/uL 1.2-3.8 [facility] Lymphocytes/100 WBC Auto (Bl d)on 04-30-2024 Lymphocytes/100 WBC (Bld) 27.8 % 20.5-60.0 [facility] MCH Auto (RBC) [Entitic mass ]on 04-30-2024 MCH (RBC) [Entitic mass] 29.6 pg 26.7-34.0 [facility] MCHC Auto (RBC) [Mass/Vol]on 04-30-2024 MCHC (RBC) [Mass/Vol] 32.4 g/dL 29.9-35.2 [facility]ir [facility] MCV Auto (RBC) [Entitic vol] on 04-30-2024 MCV (RBC) [Entitic vol] 91.5 fL 81.0-99.0 [facility] Monocytes Auto (Bld) [#/Vol] on 04-30-2024 Monocytes (Bld) [#/Vol] 0.8 10 3/uL 0.3-0.8 [facility] Monocytes/100 WBC Auto (Bld) on 04-30-2024 Monocytes/100 WBC (Bld) 10.0 % 1.7-12.0 [facility] Neutrophils Auto (Bld) [#/Vo l]on 04-30-2024 Neutrophils (Bld) [#/Vol] 4.4 10 3/uL 1.4-6.5 [facility] Neutrophils/100 WBC Auto (Bl d)on 04-30-2024 Neutrophils/100 WBC (Bld) 58.8 % 43.0-75.0 [facility] No Panel Informationon 04-30 Troponin I High Sensitivity 12.6 pg/mL 4.0-51.3 [facility] Comment on above: CUT-OFF POINTS [...] DIAGNOSTIC AND CLINICAL INFORMATION. 1.8 mg/dL 1.8-2.4 [facility] 1485.0 pg/mL <=1800.0 [facility] 12.6 pg/mL 4.0-51.3 [facility] 32.8 [facility] 99.0 mg/dL High 7.0-18.0 [facility] 9.0 mg/dL 8.5-10.1 [facility] 100 mmol/L 98-107 [facility] 24.4 mmol/L 21.0-32.0 [facility] 3.02 mg/dL High 0.55-1.02 [facility] 18 Low >=60 [facility] 271 mg/dL High 74-106 [facility] 5.3 mmol/L High 3.5-5.1 [facility] 133 mmol/L Low 136-145 [facility] Eosinophils # (Auto) 0.2 10 3/uL 0.0-0.7 [facility] Immature Granulocyte # (Auto) 0.01 10 3/uL 0.00-0.03 [facility] 0.2 10 3/uL 0.0-0.7 [facility] 0.01 10 3/uL 0.00-0.03 [facility] 0.1 % 0.0-0.5 [facility] Platelet mean volume Auto (B ld) [Entitic vol]on 04-30-2024 Platelet mean volume (Bld) [Entitic vol] 12.2 fL 9.5-13.5 [facility] Platelets Auto (Bld) [#/Vol] on 04-30-2024 Platelets (Bld) [#/Vol] 221 10 3/uL 150-450 [facility] RBC Auto (Bld) [#/Vol]on RBC (Bld) [#/Vol] 4.22 10 6/uL 4.20-5.40 [facility] Serum or plasma anion gap de terminationon 04-30-2024 Anion gap [Moles/Vol] 13.9 mmol/L [facility] Basophils Auto (Bld) [#/Vol] on 03-28-2024 Basophils (Bld) [#/Vol] 0.1 10 3/uL 0.0-0.1 [facility] Basophils/100 WBC Auto (Bld) on 03-28-2024 Basophils/100 WBC (Bld) 0.9 % 0.2-2.0 [facility] Eosinophils/100 WBC Auto (Bl d)on 03-28-2024 Eosinophils/100 WBC (Bld) 1.7 % 0.9-7.0 [facility] Erythrocyte distribution wid th Auto (RBC) [Ratio]on 03-28-2024 Erythrocyte distribution width (RBC) [Ratio] 14.2 % 11.0-15.0 [facility] Estimated glomerular filtrat ion rate (GFR) non- Americanon 03-28-2024 GFR/1.73 sq M.predicted among non-blacks MDRD (S/P/Bld) [Vol rate/Area] 39 mL/min/{1.73_m2} Low >=60 [facility] Globulin Calc (S) [Mass/Vol] on 03-28-2024 Globulin (S) [Mass/Vol] 4.8 g/dL [facility] Hematocrit Auto (Bld) [Volum e fraction]on 03-28-2024 Hematocrit (Bld) [Volume fraction] 40.0 % 36.0-48.0 [facility] Hemoglobin [Mass/volume] in Bloodon 03-28-2024 Hemoglobin (Bld) [Mass/Vol] 12.6 g/dL 12.0-16.0 [facility] Laboratory - Chemistry and C hemistry - challengeon 03-28-2024 Albumin [Mass/Vol] 2.5 g/dL Low 3.4-5.0 [facility] ALP [Catalytic activity/Vol] 93 U/L 46-116 [facility] ALT [Catalytic activity/Vol] 9 U/L Low 14-59 [facility] AST [Catalytic activity/Vol] 10 U/L Low 15-37 [facility] Bilirubin [Mass/Vol] 0.9 mg/dL 0.2-1.0 [facility] Calcium [Mass/Vol] 8.5 mg/dL 8.5-10.1 [facility] Chloride [Moles/Vol] 96 mmol/L Low 98-107 [facility] CO2 [Moles/Vol] 27.1 mmol/L 21.0-32.0 [facility] Creatinine [Mass/Vol] 1.33 mg/dL High 0.55-1.02 [facility] GFR/1.73 sq M.predicted MDRD (S/P/Bld) [Vol rate/Area] 47 mL/min/{1.73_m2} Low >=60 [facility] Glucose [Mass/Vol] 261 mg/dL High 74-106 [facility] Magnesium [Mass/Vol] 1.8 mg/dL 1.8-2.4 [facility] Natriuretic peptide B (Bld) [Mass/Vol] 3338.0 pg/mL High <=1800.0 [facility] Comment on above: RESULTS CALLED TO Claritza WADE)@BY Franchesca Huynh MLT at [phone] Potassium [Moles/Vol] 3.8 mmol/L 3.5-5.1 [facility] Protein [Mass/Vol] 7.3 g/dL 6.4-8.2 [facility] Sodium [Moles/Vol] 133 mmol/L Low 136-145 [facility] Urea nitrogen [Mass/Vol] 36.0 mg/dL High 7.0-18.0 [facility] Urea nitrogen/Creatinine [Mass ratio] 27.1 mg/mg [facility] Laboratory - Hematology and Cell countson 03-28-2024 Immature granulocytes/100 WBC (Bld) 0.4 % 0.0-0.5 [facility] Leukocytes [#/volume] correc gali for nucleated erythrocytes in Blood by Automated counon 03-28-2024 WBC corrected for nucl RBC Auto (Bld) [#/Vol] 8.4 10 3/uL 4.0-11.0 [facility] Lymphocytes Auto (Bld) [#/Vo l]on 03-28-2024 Lymphocytes (Bld) [#/Vol] 1.8 10 3/uL 1.2-3.8 [facility] Lymphocytes/100 WBC Auto (Bl d)on 03-28-2024 Lymphocytes/100 WBC (Bld) 21.4 % 20.5-60.0 [facility] MCH Auto (RBC) [Entitic mass ]on 03-28-2024 MCH (RBC) [Entitic mass] 29.0 pg 26.7-34.0 [facility] MCHC Auto (RBC) [Mass/Vol]on 03-28-2024 MCHC (RBC) [Mass/Vol] 31.5 g/dL 29.9-35.2 [facility]ir [facility] MCV Auto (RBC) [Entitic vol] on 03-28-2024 MCV (RBC) [Entitic vol] 92.0 fL 81.0-99.0 [facility] Monocytes Auto (Bld) [#/Vol] on 03-28-2024 Monocytes (Bld) [#/Vol] 0.8 10 3/uL 0.3-0.8 [facility] Monocytes/100 WBC Auto (Bld) on 03-28-2024 Monocytes/100 WBC (Bld) 9.7 % 1.7-12.0 [facility] Neutrophils Auto (Bld) [#/Vo l]on 03-28-2024 Neutrophils (Bld) [#/Vol] 5.6 10 3/uL 1.4-6.5 [facility] Neutrophils/100 WBC Auto (Bl d)on 03-28-2024 Neutrophils/100 WBC (Bld) 65.9 % 43.0-75.0 [facility] No Panel Informationon 03-28 Eosinophils # (Auto) 0.1 10 3/uL 0.0-0.7 [facility] Immature Granulocyte # (Auto) 0.03 10 3/uL 0.00-0.03 [facility] 3338.0 pg/mL High <=1800.0 [facility] 1.8 mg/dL 1.8-2.4 [facility] 2.5 g/dL Low 3.4-5.0 [facility] 0.1 10 3/uL 0.0-0.7 [facility] 93 U/L 46-116 [facility] 9 U/L Low 14-59 [facility] 10 U/L Low 15-37 [facility] 27.1 [facility] 0.03 10 3/uL 0.00-0.03 [facility] 36.0 mg/dL High 7.0-18.0 [facility] 0.4 % 0.0-0.5 [facility] 8.5 mg/dL 8.5-10.1 [facility] 96 mmol/L Low 98-107 [facility] 27.1 mmol/L 21.0-32.0 [facility] 1.33 mg/dL High 0.55-1.02 [facility] 47 Low >=60 [facility] 261 mg/dL High 74-106 [facility] 3.8 mmol/L 3.5-5.1 [facility] 133 mmol/L Low 136-145 [facility] 0.9 mg/dL 0.2-1.0 [facility] 7.3 g/dL 6.4-8.2 [facility] Platelet mean volume Auto (B ld) [Entitic vol]on 03-28-2024 Platelet mean volume (Bld) [Entitic vol] 10.5 fL 9.5-13.5 [facility] Platelets Auto (Bld) [#/Vol] on 03-28-2024 Platelets (Bld) [#/Vol] 197 10 3/uL 150-450 [facility] RBC Auto (Bld) [#/Vol]on RBC (Bld) [#/Vol] 4.35 10 6/uL 4.20-5.40 [facility] Serum or plasma albumin/glob ulin mass ratioon 03-28-2024 Albumin/Globulin [Mass ratio] 0.5 {ratio} [facility] Serum or plasma anion gap de terminationon 03-28-2024 Anion gap [Moles/Vol] 13.7 mmol/L [facility] Basophils Auto (Bld) [#/Vol] on 03-27-2024 Basophils (Bld) [#/Vol] 0.1 10 3/uL 0.0-0.1 [facility] Basophils/100 WBC Auto (Bld) on 03-27-2024 Basophils/100 WBC (Bld) 0.8 % 0.2-2.0 [facility] Eosinophils/100 WBC Auto (Bl d)on 03-27-2024 Eosinophils/100 WBC (Bld) 1.1 % 0.9-7.0 [facility] Erythrocyte distribution wid th Auto (RBC) [Ratio]on 03-27-2024 Erythrocyte distribution width (RBC) [Ratio] 14.2 % 11.0-15.0 [facility] Estimated glomerular filtrat ion rate (GFR) non- Americanon 03-27-2024 GFR/1.73 sq M.predicted among non-blacks MDRD (S/P/Bld) [Vol rate/Area] 44 mL/min/{1.73_m2} Low >=60 [facility] Globulin Calc (S) [Mass/Vol] on 03-27-2024 Globulin (S) [Mass/Vol] 4.6 g/dL F [facility] Glucose mean value [Mass/vol ume] in Blood Estimated from glycated hemoglobinon 03-27-2024 Average glucose Estimated from glycated hemoglobin (Bld) [Mass/Vol] 275 mg/dL [facility] Hematocrit Auto (Bld) [Volum e fraction]on 03-27-2024 Hematocrit (Bld) [Volume fraction] 37.4 % 36.0-48.0 [facility] Hemoglobin [Mass/volume] in Bloodon 03-27-2024 Hemoglobin (Bld) [Mass/Vol] 12.1 g/dL 12.0-16.0 [facility] Laboratory - Chemistry and C hemistry - challengeon 03-27-2024 Albumin [Mass/Vol] 2.6 g/dL Low 3.4-5.0 [facility] ALP [Catalytic activity/Vol] 89 U/L 46-116 [facility] ALT [Catalytic activity/Vol] 12 U/L Low 14-59 [facility] AST [Catalytic activity/Vol] 9 U/L Low 15-37 [facility] Bilirubin [Mass/Vol] 0.9 mg/dL 0.2-1.0 [facility] Calcium [Mass/Vol] 9.1 mg/dL 8.5-10.1 [facility] Chloride [Moles/Vol] 99 mmol/L 98-107 [facility] CO2 [Moles/Vol] 28.8 mmol/L 21.0-32.0 [facility] Creatinine [Mass/Vol] 1.19 mg/dL High 0.55-1.02 [facility] GFR/1.73 sq M.predicted MDRD (S/P/Bld) [Vol rate/Area] 53 mL/min/{1.73_m2} Low >=60 [facility] Glucose [Mass/Vol] 273 mg/dL High 74-106 [facility] Magnesium [Mass/Vol] 1.7 mg/dL Low 1.8-2.4 [facility] Natriuretic peptide B (Bld) [Mass/Vol] 4572.0 pg/mL High <=1800.0 [facility] Comment on above: RESULTS CALLED TO SA RA MIGUEL RN @BY Alla Kevin [phone] Potassium [Moles/Vol] 3.6 mmol/L 3.5-5.1 [facility] Protein [Mass/Vol] 7.2 g/dL 6.4-8.2 [facility] Sodium [Moles/Vol] 135 mmol/L Low 136-145 [facility] Urea nitrogen [Mass/Vol] 34.0 mg/dL High 7.0-18.0 [facility] Urea nitrogen/Creatinine [Mass ratio] 28.6 mg/mg [facility] Laboratory - Hematology and Cell countson 03-27-2024 HbA1c (Bld) [Mass fraction] 11.2 % High 4.5-6.2 [facility] Comment on above: ADA RECOMMENDED LIMI T 4.0 - 6.0ADA THERAPEUTIC TARGET < 7.0ACTION SUGGESTED> 7.0 Immature granulocytes/100 WBC (Bld) 0.3 % 0.0-0.5 [facility] Leukocytes [#/volume] correc gali for nucleated erythrocytes in Blood by Automated counon 03-27-2024 WBC corrected for nucl RBC Auto (Bld) [#/Vol] 9.7 10 3/uL 4.0-11.0 [facility] Lymphocytes Auto (Bld) [#/Vo l]on 03-27-2024 Lymphocytes (Bld) [#/Vol] 1.3 10 3/uL 1.2-3.8 [facility] Lymphocytes/100 WBC Auto (Bl d)on 03-27-2024 Lymphocytes/100 WBC (Bld) 13.3 % Low 20.5-60.0 [facility] MCH Auto (RBC) [Entitic mass ]on 03-27-2024 MCH (RBC) [Entitic mass] 29.2 pg 26.7-34.0 [facility] MCHC Auto (RBC) [Mass/Vol]on 03-27-2024 MCHC (RBC) [Mass/Vol] 32.4 g/dL 29.9-35.2 [facility] MCV Auto (RBC) [Entitic vol] on 03-27-2024 MCV (RBC) [Entitic vol] 90.3 fL 81.0-99.0 [facility] Monocytes Auto (Bld) [#/Vol] on 03-27-2024 Monocytes (Bld) [#/Vol] 0.8 10 3/uL 0.3-0.8 [facility] Monocytes/100 WBC Auto (Bld) on 03-27-2024 Monocytes/100 WBC (Bld) 8.4 % 1.7-12.0 [facility] Neutrophils Auto (Bld) [#/Vo l]on 03-27-2024 Neutrophils (Bld) [#/Vol] 7.4 10 3/uL High 1.4-6.5 [facility] Neutrophils/100 WBC Auto (Bl d)on 03-27-2024 Neutrophils/100 WBC (Bld) 76.1 % High 43.0-75.0 [facility] No Panel Informationon 03-27 Eosinophils # (Auto) 0.1 10 3/uL 0.0-0.7 [facility] Immature Granulocyte # (Auto) 0.03 10 3/uL 0.00-0.03 [facility] 4572.0 pg/mL High <=1800.0 [facility] 1.7 mg/dL Low 1.8-2.4 [facility] 11.2 % High 4.5-6.2 [facility] 2.6 g/dL Low 3.4-5.0 [facility] 0.1 10 3/uL 0.0-0.7 [facility] 89 U/L 46-116 [facility] 12 U/L Low 14-59 [facility] 9 U/L Low 15-37 [facility] 28.6 [facility] 0.03 10 3/uL 0.00-0.03 [facility] 34.0 mg/dL High 7.0-18.0 [facility] 0.3 % 0.0-0.5 [facility] 9.1 mg/dL 8.5-10.1 [facility] 99 mmol/L 98-107 [facility] 28.8 mmol/L 21.0-32.0 [facility] 1.19 mg/dL High 0.55-1.02 [facility] 53 Low >=60 [facility] 273 mg/dL High 74-106 [facility] 3.6 mmol/L 3.5-5.1 [facility] 135 mmol/L Low 136-145 [facility] 0.9 mg/dL 0.2-1.0 [facility] 7.2 g/dL 6.4-8.2 [facility] Platelet mean volume Auto (B ld) [Entitic vol]on 03-27-2024 Platelet mean volume (Bld) [Entitic vol] 10.6 fL 9.5-13.5 [facility] Platelets Auto (Bld) [#/Vol] on 03-27-2024 Platelets (Bld) [#/Vol] 204 10 3/uL 150-450 [facility] RBC Auto (Bld) [#/Vol]on RBC (Bld) [#/Vol] 4.14 10 6/uL Low 4.20-5.40 [facility] Serum or plasma albumin/glob ulin mass ratioon 03-27-2024 Albumin/Globulin [Mass ratio] 0.6 {ratio} [facility] Serum or plasma anion gap de terminationon 03-27-2024 Anion gap [Moles/Vol] 10.8 mmol/L [facility] Basophils Auto (Bld) [#/Vol] on 03-26-2024 Basophils (Bld) [#/Vol] 0.1 10 3/uL 0.0-0.1 [facility] Basophils/100 WBC Auto (Bld) on 03-26-2024 Basophils/100 WBC (Bld) 0.8 % 0.2-2.0 [facility] Eosinophils/100 WBC Auto (Bl d)on 03-26-2024 Eosinophils/100 WBC (Bld) 1.2 % 0.9-7.0 [facility] Erythrocyte distribution wid th Auto (RBC) [Ratio]on 03-26-2024 Erythrocyte distribution width (RBC) [Ratio] 14.5 % 11.0-15.0 [facility] Estimated glomerular filtrat ion rate (GFR) non- Americanon 03-26-2024 GFR/1.73 sq M.predicted among non-blacks MDRD (S/P/Bld) [Vol rate/Area] 46 mL/min/{1.73_m2} Low >=60 [facility] Glucose mean value [Mass/vol ume] in Blood Estimated from glycated hemoglobinon 03-26-2024 Average glucose Estimated from glycated hemoglobin (Bld) [Mass/Vol] 275 mg/dL [facility] Hematocrit Auto (Bld) [Volum e fraction]on 03-26-2024 Hematocrit (Bld) [Volume fraction] 40.1 % 36.0-48.0 [facility] Hemoglobin [Mass/volume] in Bloodon 03-26-2024 Hemoglobin (Bld) [Mass/Vol] 12.7 g/dL 12.0-16.0 [facility] Laboratory - Chemistry and C hemistry - challengeon 03-26-2024 Calcium [Mass/Vol] 9.1 mg/dL 8.5-10.1 [facility] Chloride [Moles/Vol] 102 mmol/L 98-107 [facility] CO2 [Moles/Vol] 28.5 mmol/L 21.0-32.0 [facility] Creatinine [Mass/Vol] 1.14 mg/dL High 0.55-1.02 [facility] Free T4 [Mass/Vol] 1.29 ng/dL 0.76-1.46 [facility] GFR/1.73 sq M.predicted MDRD (S/P/Bld) [Vol rate/Area] 56 mL/min/{1.73_m2} Low >=60 [facility] Glucose [Mass/Vol] 246 mg/dL High 74-106 [facility] Natriuretic peptide B (Bld) [Mass/Vol] 2890.0 pg/mL High <=1800.0 [facility] Comment on above: RESULTS CALLED TO YOEL TAI RN @BY Alla Kunz [phone] Potassium [Moles/Vol] 4.3 mmol/L 3.5-5.1 [facility] Sodium [Moles/Vol] 136 mmol/L 136-145 [facility] TSH Qn 6.001 m[IU]/L High 0.358-3.740 [facility] Urea nitrogen [Mass/Vol] 35.0 mg/dL High 7.0-18.0 [facility] Urea nitrogen/Creatinine [Mass ratio] 30.7 mg/mg [facility] Laboratory - Hematology and Cell countson 03-26-2024 HbA1c (Bld) [Mass fraction] 11.2 % High 4.5-6.2 [facility] Comment on above: ADA RECOMMENDED LIMI T 4.0 - 6.0ADA THERAPEUTIC TARGET < 7.0ACTION SUGGESTED> 7.0 Immature granulocytes/100 WBC (Bld) 0.2 % 0.0-0.5 [facility] Leukocytes [#/volume] correc gali for nucleated erythrocytes in Blood by Automated counon 03-26-2024 WBC corrected for nucl RBC Auto (Bld) [#/Vol] 8.3 10 3/uL 4.0-11.0 [facility] Lymphocytes Auto (Bld) [#/Vo l]on 03-26-2024 Lymphocytes (Bld) [#/Vol] 1.4 10 3/uL 1.2-3.8 [facility] Lymphocytes/100 WBC Auto (Bl d)on 03-26-2024 Lymphocytes/100 WBC (Bld) 16.5 % Low 20.5-60.0 [facility] MCH Auto (RBC) [Entitic mass ]on 03-26-2024 MCH (RBC) [Entitic mass] 29.1 pg 26.7-34.0 [facility] MCHC Auto (RBC) [Mass/Vol]on 03-26-2024 MCHC (RBC) [Mass/Vol] 31.7 g/dL 29.9-35.2 [facility] MCV Auto (RBC) [Entitic vol] on 03-26-2024 MCV (RBC) [Entitic vol] 92.0 fL 81.0-99.0 [facility] Monocytes Auto (Bld) [#/Vol] on 03-26-2024 Monocytes (Bld) [#/Vol] 0.7 10 3/uL 0.3-0.8 [facility] Monocytes/100 WBC Auto (Bld) on 03-26-2024 Monocytes/100 WBC (Bld) 7.9 % 1.7-12.0 F [facility] Neutrophils Auto (Bld) [#/Vo l]on 03-26-2024 Neutrophils (Bld) [#/Vol] 6.1 10 3/uL 1.4-6.5 [facility] Neutrophils/100 WBC Auto (Bl d)on 03-26-2024 Neutrophils/100 WBC (Bld) 73.4 % 43.0-75.0 [facility] No Panel Informationon 03-26 Eosinophils # (Auto) 0.1 10 3/uL 0.0-0.7 [facility] Immature Granulocyte # (Auto) 0.02 10 3/uL 0.00-0.03 [facility] Troponin I High Sensitivity 12.4 pg/mL 4.0-51.3 [facility] Comment on above: CUT-OFF POINTS [...] DIAGNOSTIC AND CLINICAL INFORMATION. 1.29 ng/dL 0.76-1.46 [facility] 6.001 u[iU]/mL High 0.358-3.740 [facility] 2890.0 pg/mL High <=1800.0 [facility] 12.4 pg/mL 4.0-51.3 [facility] 11.2 % High 4.5-6.2 [facility] 30.7 [facility] 35.0 mg/dL High 7.0-18.0 [facility] 0.1 10 3/uL 0.0-0.7 [facility] 9.1 mg/dL 8.5-10.1 [facility] 102 mmol/L 98-107 [facility] 28.5 mmol/L 21.0-32.0 [facility] 1.14 mg/dL High 0.55-1.02 [facility] 0.02 10 3/uL 0.00-0.03 [facility] 56 Low >=60 [facility] 0.2 % 0.0-0.5 [facility] 246 mg/dL High 74-106 [facility] 4.3 mmol/L 3.5-5.1 [facility] 136 mmol/L 136-145 [facility] Platelet mean volume Auto (B ld) [Entitic vol]on 03-26-2024 Platelet mean volume (Bld) [Entitic vol] 10.8 fL 9.5-13.5 [facility] Platelets Auto (Bld) [#/Vol] on 03-26-2024 Platelets (Bld) [#/Vol] 225 10 3/uL 150-450 [facility] RBC Auto (Bld) [#/Vol]on RBC (Bld) [#/Vol] 4.36 10 6/uL 4.20-5.40 [facility] Serum or plasma anion gap de terminationon 03-26-2024 Anion gap [Moles/Vol] 9.8 mmol/L [facility] MR cervical spine wo conon 0 03-13-2024 MR cervical spine wo con [facility] [place] [address] [place] [address] MRI Report Signed Patient: Joe Call MR#: [id number] 0 : 1945 Acct:[id number] Age/Sex: 78 / F ADM Date: 03/13/24 Loc: [facility] Room: Type: [facility] Attending Dr: Eloina Hussein MD Copies [...] Jarred Randolph M.D.03/13/2024 3:47 PM Dictation Location: [place] [address] Transcribed By: [facility] 03/13/24 1547 Dictated By: Jarred Randolph DO 03/13/24 1542 Signed By: 03/13/24 1547 Normal [facility] XR pre/post mri xrayon 03-13 XR pre/post mri xray [facility] [place] [address] [place] [address] MRI Report Signed Patient: Joe Call MR#: [id number] 0 : 1945 Acct:[id number] Age/Sex: 78 / F ADM Date: 03/13/24 Loc: [facility] Room: Type[facility] Attending Dr: Eloina Hussein MD Copies to: Eloina Mullins MD Ordering Provider: Eloina Mullins MD Date of Service: 03/13/24 MR/MR lumbar spine wo con: M54.50 ([id number]) XR/XR pre/post mri xray: M54.50 MRI Lumbar [...] Jarred Randolph M.D.03/13/2024 3:58 PM Dictation Location: [place] [address] Transcribed By: [facility] 03/13/24 1558 Dictated By: Jarred Randolph DO 03/13/24 1551 Signed By: 03/13/24 1558 Normal [facility] Office Visiton 03-07-2024 Follow-up visit [id number] Joe Call 1945 F Date Provider Department Center 03/07/2024 RICA DEAN LOVE [facility] Family History Problem Relation Age of Onset Coronary artery disease Other Diabetes Other Polycystic kidney disease Other Family Status - Relation Status Age at Other Level of Service:37271 LA OFFICE/OUTPATIENT ESTABLISHED MOD MDM 30 MIN Reason for Visit and Comments: Follow-up [181433] - 6 month Normal [facility] Office Visiton 08-17-2023 Follow-up visit [id number] Joe Call 1945 Date Provider Department Center 08/17/2023 [id number] BARNES LOVE [facility] Family History Problem Relation Age of Onset Coronary artery disease Other Diabetes Other Polycystic kidney disease Other Family Status - Relation Status Age at Other Level of Service:41130 LA OFFICE/OUTPATIENT ESTABLISHED MOD MDM 30-39 MIN Normal [facility] 36on 07-25-2023 36 Pt informed [facility] 36on 07-24-2023 37 She does not need to drink 4 bottle of water. She needs to maintain a 2 L fluid restriction. This includes all fluid not just water. In regards to sleep, I told her she would need to discuss that with her PCP. Thanks. [facility] Office Visiton 07-23-2023 Follow-up visit [id number] Joe Call 1945 F Date Provider Department Center 07/23/2023 [id number] BARNES CARD [facility] Family History Problem Relation Age of Onset Coronary artery disease Other Diabetes Other Polycystic kidney disease Other Family Status - Relation Status Age at Other Level of Service:96587 LA OFFICE/OUTPATIENT ESTABLISHED MOD MDM 30-39 MIN [facility] GI PANEL (PCR)on 03-06-2023 Adenovirus F 40/41 Not detected Normal NOT DETECTED [facility] Comment on above: Performed By: #### P OCGLUC #### [facility] [address] [place] [address] Dr. Kasia Nath Astrovirus Not detected Normal NOT DETECTED [facility] Comment on above: Performed By: #### P OCGLUC #### [facility] [address] [place] [address] [address] Kasia Nath C. Diff toxin A/B Detected Critically abnormal NOT DETECTED [facility] Comment on above: Performed By: #### P OCGLUC #### [facility] [address] [place] [address] [address] Kasia Nath Campylobacter Detected Critically abnormal NOT DETECTED [facility] Comment on above: Performed By: #### P OCGLUC #### [facility] [address] [place] [address] [address] Kasia Nath Cryptosporidium Not detected Normal NOT DETECTED [facility] Comment on above: Performed By: #### P OCGLUC #### [facility] [address] [place] [address] [address] Kasia Nath Cyclos. Cayetanensis Not detected Normal NOT DETECTED [facility] Comment on above: Performed By: #### P OCGLUC #### [facility] [address] [place] [address] Dr. Kasia Nath E. Coli O157 Not Applicable Normal Not Applicable [facility] Comment on above: Performed By: #### P OCGLUC #### [facility] [address] [place] [address] Dr. Kasia Nath E. histolytica Not detected Normal NOT DETECTED [facility] Comment on above: Performed By: #### P OCGLUC #### [facility] [address] [place] [address] [address] Kasia Nath EAEC Not detected Normal NOT DETECTED [facility] Comment on above: Performed By: #### P OCGLUC #### [facility] [address] [place] [address] Dr. Kasia Nath EIEC Not detected Normal NOT DETECTED [facility] Comment on above: Performed By: #### P OCGLUC #### [facility] [address] [place] [address] Dr. Kasia Nath EPEC Not detected Normal NOT DETECTED [facility] Comment on above: Performed By: #### P OCGLUC #### [facility] [address] [place] [address] Dr. Kasia Nath ETEC Not detected Normal NOT DETECTED [facility] Comment on above: Performed By: #### P OCGLUC #### [facility] [address] [place] [address] Dr. Kasia Nath G. Lamblia Not detected Normal NOT DETECTED [facility] Comment on above: Performed By: #### P OCGLUC #### [facility] [address] [place] [address] Dr. Kasia MOYERANEL CONTROLS PASSED Normal [facility] Comment on above: Performed By: #### P OCGLUC #### [facility] [address] [place] [address] Dr. Kasia THOMPSON JUNO HEADER GI PANEL BACTERIA Normal [facility] Comment on above: Performed By: #### P OCGLUC #### [facility] [address] [place] [address] Dr. Kasia THOMPSONHD ECOLI GI PANEL DIARRHEAGENIC E.COLI / SHIGELLA Normal [facility] Comment on above: Performed By: #### P OCGLUC #### [facility] [address] [place] [address] [address] Kasia GE INFO SEE BELOW Normal [facility] Comment on above: Result Comment: EAEC - Enteroaggregative E. Coli EPEC- Enteropathogenic E. Coli ETEC- Enterotoxigenic E. Coli lt/st STEC- Shigella-like toxin-producing E. Coli stx1/stx2 EIEC- Shigella/Enteroinvasive E. Coli Performed By: #### P OCGLUC #### [facility] [address] [place] [address] [address] Kasia GE PARASITES GI PANEL PARASITES Normal [facility] Comment on above: Performed By: #### P OCGLUC #### [facility] [address] [place] [address] Dr. Kasia GE VIRUS GI PANEL VIRUSES Normal [facility] Comment on above: Performed By: #### P OCGLUC #### [facility] [address] [place] [address] [address] Kasia Nath Norovirus GI/GII Not detected Normal NOT DETECTED [facility] Comment on above: Performed By: #### P OCGLUC #### [facility] [address] [place] [address] [address] Kasia Nath P. Shigelloides Not detected Normal NOT DETECTED [facility] Comment on above: Performed By: #### P OCGLUC #### [facility] [address] [place] [address] [address] Kasia Nath Rotavirus A Not detected Normal NOT DETECTED [facility] Comment on above: Performed By: #### P OCGLUC #### [facility] [address] [place] [address] [address] Kasia Nath Salmonella Not detected Normal NOT DETECTED [facility] Comment on above: Performed By: #### P OCGLUC #### [facility] [address] [place] [address] [address] Kasia Nath Sapovirus Not detected Normal NOT DETECTED [facility] Comment on above: Performed By: #### P OCGLUC #### [facility] [address] [place] [address] Dr. Kasia Nath STEC Not detected Normal NOT DETECTED [facility] Comment on above: Performed By: #### P OCGLUC #### [facility] [address] [place] [address] Dr. Kasia Nath Vibrio Not detected Normal NOT DETECTED [facility] Comment on above: Performed By: #### P OCGLUC #### [facility] [address] [place] [address] Dr. Kasia Nath Vibrio Cholera Not detected Normal NOT DETECTED [facility] Comment on above: Performed By: #### P OCGLUC #### [facility] [address] [place] [address] Dr. Kasia Nath Y. Enterocolitica Not detected Normal NOT DETECTED [facility] Comment on above: Performed By: #### P OCGLUC #### [facility] [address] [place] [address] Dr. Kasia Nath CBC AUTO DIFFon 02-14-2023 BASO # 0.0 103/ul Normal 0.0-0.1 [facility] Comment on above: Performed By: #### P OCGLUC #### [facility] [address] [place] [address] Dr. Kasia Nath Basophils/100 WBC (Bld) 0.5 % Normal 0.2-2.[address] [facility] Comment on above: Performed By: #### P OCGLUC #### [facility] [address] [place] [address] Dr. Kasia Nath EO # 0.2 103/ul Normal 0.0-0.7 [facility] Comment on above: Performed By: #### P OCGLUC #### [facility] [address] [place] [address] Dr. Kasia Nath Eosinophils/100 WBC (Bld) 2.7 % Normal 0.9-7.0 [facility] Comment on above: Performed By: #### P OCGLUC #### [facility] [address] [place] [address] Dr. Kasia Nath Erythrocyte distribution width (RBC) [Ratio] 13.0 % Normal 11.0-15.0 [facility] Comment on above: Performed By: #### P OCGLUC #### [facility] [address] [place] [address] Dr. Kasia Nath Hematocrit (Bld) [Volume fraction] 35.9 % Critically low 36.0-48.0 [facility] Comment on above: Performed By: #### P OCGLUC #### [facility] [address] [place] [address] Dr. Kasia Nath Hemoglobin (Bld) [Mass/Vol] 12.0 g/dL Normal 12.0-16.0 [facility] Comment on above: Performed By: #### P OCGLUC #### [facility] [address] [place] [address] Dr. Kasia Nath IG # 0.02 10e3/ul Normal 0.00-0.03 [facility] Comment on above: Performed By: #### P OCGLUC #### [facility] [address] [place] [address] Dr. Kasia Nath IG % 0.3 % Normal 0.0-0.5 [facility] Comment on above: Performed By: #### P OCGLUC #### [facility] [address] [place] [address] Dr. Kasia Nath LYMPH # 1.8 103/ul Normal 1.2-3.8 [facility] Comment on above: Performed By: #### P OCGLUC #### [facility] [address] [place] [address] Dr. Kasia Nath Lymphocytes/100 WBC (Bld) 22.8 % Normal 20.5-60.0 [facility] Comment on above: Performed By: #### P OCGLUC #### [facility] [address] [place] [address] Dr. Kasia Nath MANUAL DIFF REQ NO Normal [facility] Comment on above: Performed By: #### P OCGLUC #### [facility] [address] [place] [address] Dr. Kasia Nath MCH (RBC) [Entitic mass] 29.4 pg Normal 26.7-34.0 [facility] Comment on above: Performed By: #### P OCGLUC #### [facility] [address] [place] [address] Dr. Kasia Nath MCHC (RBC) [Mass/Vol] 33.4 g/dL Normal 29.9-35.2 [facility] Comment on above: Performed By: #### P OCGLUC #### [facility] [address] [place] [address] Dr. Kasia Nath MCV (RBC) [Entitic vol] 88.0 fL Normal 81.0-99.[address] [facility] Comment on above: Performed By: #### P OCGLUC #### [facility] [address] [place] [address] Dr. Kasia Nath MONO # 0.7 103/ul Normal 0.3-0.8 [facility] Comment on above: Performed By: #### P OCGLUC #### [facility] [address] [place] [address] Dr. Kasia Nath Monocytes/100 WBC (Bld) 9.3 % Normal 1.7-12.[address] [facility] Comment on above: Performed By: #### P OCGLUC #### [facility] [address] [place] [address] Dr. Kasia Nath NEUT # 5.1 103/ul Normal 1.4-6.5 [facility] Comment on above: Performed By: #### P OCGLUC #### [facility] [address] [place] [address] Dr. Kasia Nath Neutrophils/100 WBC (Bld) 64.4 % Normal 43.0-75.0 [facility] Comment on above: Performed By: #### P OCGLUC #### [facility] [address] [place] [address] Dr. Kasia Nath Platelet mean volume (Bld) [Entitic vol] 11.7 fL Normal 9.5-13.5 [facility] Comment on above: Performed By: #### P OCGLUC #### [facility] [address] [place] [address] [address] Kasia Nath PLT 175 103/ul Normal 150-450 [facility] Comment on above: Performed By: #### P OCGLUC #### [facility] [address] [place] [address] [address] Kasia Nath RBC 4.08 106/ul Critically low 4.20-5.40 [facility] Comment on above: Performed By: #### P OCGLUC #### [facility] [address] [place] [address] [address] Kasia Nath WBC 7.9 103/ul Normal 4.0-11.0 [facility] Comment on above: Performed By: #### P OCGLUC #### [facility] [address] [place] [address] [address] Kasia Nath LIPASEon 02-14-2023 Lipase [Catalytic activity/Vol] 51.0 U/L Critically low 73.0-393.0 [facility] Comment on above: Performed By: #### L IPA, CMP ####[facility] [address] [place] [address]DrDoreen Nath PROF 14(COMP METB)on 023 Albumin [Mass/Vol] 2.8 g/dL Critically low 3.4-5.0 [facility] Comment on above: Performed By: #### L IPA, CMP ####[facility] [address] [place] [address]DrDoreen Nath Albumin/Globulin [Mass ratio] 0.7 {ratio} Normal [facility] Comment on above: Performed By: #### L IPA, CMP ####[facility] [address] [place] [address]DrDoreen Nath ALP [Catalytic activity/Vol] 90 U/L Normal 46-116 [facility] Comment on above: Performed By: #### L IPA, CMP ####[facility] [address] [place] [address]DrDoreen Nath ALT [Catalytic activity/Vol] 15 U/L Normal 14-59 [facility] Comment on above: Performed By: #### L IPA, CMP ####[facility] [address] [place] [address]Dr. Kasia Nath Anion gap [Moles/Vol] 15.6 mmol/L Normal [facility] Comment on above: Performed By: #### L IPA, CMP ####[facility] [address] [place] [address]Dr. Kasia Nath AST [Catalytic activity/Vol] 9 U/L Critically low 15-37 [facility] Comment on above: Performed By: #### L IPA, CMP ####[facility] [address] [place], [place] [address]Dr. Kasia Nath Bilirubin [Mass/Vol] 0.4 mg/dL Normal 0.2-1.0 [facility] Comment on above: Performed By: #### L IPA, CMP ####[facility] [address] [place], [place] [address]Dr. Kasia Nath Calcium [Mass/Vol] 9.1 mg/dL Normal 8.5-10.1 [facility] Comment on above: Performed By: #### L IPA, CMP ####[facility] [address] [place], [place] [address]Dr. Kasia Nath Chloride [Moles/Vol] 104 mmol/L Normal 98-107 [facility] Comment on above: Performed By: #### L IPA, CMP ####[facility] [address] [place], [place] [address]Dr. Kasia Nath CO2 [Moles/Vol] 17.0 mmol/L Critically low 21.0-32.0 [facility] Comment on above: Performed By: #### L IPA, CMP ####[facility] [address] [place], [place] [address]Dr. Kasia Nath Creatinine [Mass/Vol] 1.78 mg/dL Critically high 0.55-1.02 [facility] Comment on above: Performed By: #### L IPA, CMP ####[facility] [address] [place], [place] [address]Dr. Kasia Portillo EGFR-AF HAITIAN 34 mL/min/1.73m2 Critically low >=60 [facility] Comment on above: Performed By: #### L IPA, CMP ####[facility] [address] [place] [address]Dr. Kasia Nath EGFR-NON AF HAITIAN 28 mL/min/1.73m2 Critically low >=60 [facility] Comment on above: Performed By: #### L IPA, CMP ####[facility] [address] [place] [address]Dr. Fartuncristy Nath Globulin (S) [Mass/Vol] 4.3 g/dL Normal [facility] Comment on above: Performed By: #### L IPA, CMP ####[facility] [address] [place], [place] [address]Dr. Kasia Nath Glucose [Mass/Vol] 248 mg/dL Critically high 74-[address] [facility] Comment on above: Performed By: #### L IPA, CMP ####[facility] [address] [place], [place] [address]Dr. Kasia Nath Potassium [Moles/Vol] 4.6 mmol/L Normal 3.5-5.1 [facility] Comment on above: Performed By: #### L IPA, CMP ####[facility] [address] [place], [place] [address]Dr. Kasia Nath Protein [Mass/Vol] 7.1 g/dL Normal 6.4-8.2 [facility] Comment on above: Performed By: #### L IPA, CMP ####[facility] [address] [place], [place] [address]Dr. Kasia Nath Sodium [Moles/Vol] 132 mmol/L Critically low 136-145 [facility] Comment on above: Performed By: #### L IPA, CMP ####[facility] [address] [place], [place] [address]Dr. Kasia Nath Urea nitrogen [Mass/Vol] 78.0 mg/dL Critically high 7.0-18.0 [facility] Comment on above: Performed By: #### L IPA, CMP ####[facility] [address] [place], [place] [address]Dr. Kasia Nath Urea nitrogen/Creatinine [Mass ratio] 43.8 mg/mg Normal [facility] Comment on above: Performed By: #### L IPA, CMP ####[facility] [address] [place], [place] [address]Dr. Kasia Portillo CBC AUTO DIFFon 02-13-2023 BASO # 0.0 103/ul Normal 0.0-0.1 [facility] Comment on above: Performed By: #### C BC ####[facility] [address] [place], [place] [address]Dr. Fartuncristy Nath Basophils/100 WBC (Bld) 0.5 % Normal 0.2-2.[address] [facility] Comment on above: Performed By: #### C BC ####[facility] [address] [place], [place] [address]Dr. Fartuncristy Nath EO # 0.1 103/ul Normal 0.0-0.7 [facility] Comment on above: Performed By: #### C BC ####[facility] [id number] [place], [place] [address]Dr. Kasia Portillo Eosinophils/100 WBC (Bld) 1.0 % Normal 0.9-7.0 [facility] Comment on above: Performed By: #### C BC ####[facility] [address] [place], [place] [address]Dr. Kasia Nath Erythrocyte distribution width (RBC) [Ratio] 12.8 % Normal 11.0-15.0 [facility] Comment on above: Performed By: #### C BC ####[facility] [address] [place], [place] [address]Dr. Kasia Nath Hematocrit (Bld) [Volume fraction] 38.5 % Normal 36.0-48.0 [facility] Comment on above: Performed By: #### C BC ####[facility] [id number] [place], [place] [address]Dr. Kasia Nath Hemoglobin (Bld) [Mass/Vol] 13.0 g/dL Normal 12.0-16.0 [facility] Comment on above: Performed By: #### C BC ####[facility] [address] [place] [address]Dr. Kasia Nath IG # 0.02 10e3/ul Normal 0.00-0.03 [facility] Comment on above: Performed By: #### C BC ####[facility] [address] [place] [address]Dr. Kasia Nath IG % 0.2 % Normal 0.0-0.5 [facility] Comment on above: Performed By: #### C BC ####[facility] [address] [place] [address]Dr. Kasia Portillo LYMPH # 0.9 103/ul Critically low 1.2-3.8 [facility] Comment on above: Performed By: #### C BC ####[facility] [address] [place] [address]Dr. Kasia Nath Lymphocytes/100 WBC (Bld) 10.0 % Critically low 20.5-60.0 [facility] Comment on above: Performed By: #### C BC ####[facility] [address] [place] [address]Dr. Fartuncristy Nath MANUAL DIFF REQ NO Normal [facility] Comment on above: Performed By: #### C BC ####[facility] [address] [place] [address]Dr. Kasia Nath MCH (RBC) [Entitic mass] 29.5 pg Normal 26.7-34.0 [facility] Comment on above: Performed By: #### C BC ####[facility] [address] [place] [address]Dr. Kasia Portillo MCHC (RBC) [Mass/Vol] 33.8 g/dL Normal 29.9-35.2 [facility] Comment on above: Performed By: #### C BC ####[facility] [address] [place], [place] [address]Dr. Kasia Portillo MCV (RBC) [Entitic vol] 87.5 fL Normal 81.0-99.[address] [facility] Comment on above: Performed By: #### C BC ####[facility] [address] [place] [id number]. Kasia Nath MONO # 0.5 103/ul Normal 0.3-0.8 [facility] Comment on above: Performed By: #### C BC ####[facility] [address] [place] [id number]. Kasia Nath Monocytes/100 WBC (Bld) 5.7 % Normal 1.7-12.[address] [facility] Comment on above: Performed By: #### C BC ####[facility] [address] [place] [id number]. Kasia Nath NEUT # 7.2 103/ul Critically high 1.4-6.5 [facility] Comment on above: Performed By: #### C BC ####[facility] [address] [place] [id number]. Kasia Nath Neutrophils/100 WBC (Bld) 82.6 % Critically high 43.0-75.0 [facility] Comment on above: Performed By: #### C BC ####[facility] Vdrxezwrol[address] [place] [id number]. Kasia Nath Platelet mean volume (Bld) [Entitic vol] 11.8 fL Normal 9.5-13.5 [facility] Comment on above: Performed By: #### C BC ####[facility] [address]cv[address]qp[address] [place] [phone]. Kasia Nath PLT 187 103/ul Normal 150-450 [facility] Comment on above: Performed By: #### C BC ####[facility] Qoctjwhhpq[address] [place] [phone]. Kasia Nath RBC 4.40 106/ul Normal 4.20-5.40 [facility] Comment on above: Performed By: #### C BC ####[facility] Vmzmgsrr[address] [place] [id number]. Kasia Nath WBC 8.8 103/ul Normal 4.0-11.0 [facility] Comment on above: Performed By: #### C BC ####[facility] Ads[address]fr[address] [place], [place] [id number] Nath CT ABD/PELVIS WO CONon 02-13 CT [...] JACOB MCCURDY Date: 2023-02-13 14:40 Normal [facility] CULTURE URINEon 02-13-2023 CULTURE URINE Culture Observations : LIGHT GROWTH OF MIXED GENITAL VON. NO POTENTIAL PATHOGENS SEEN. Normal [facility] Comment on above: Performed By: #### U RCX ####[facility] [address] [place], [place] [address]UyDoreen Nath Covid-19 PCR ([facility])on SARS-CoV-2 (COVID-19) RNA FERN+probe Ql (Unsp spec) Not detected Normal NOT DETECTED [facility] Comment on above: Result Comment: When [...] for this test is supported by the Computer Systems Designer of Health and Human Service's declaration that [...] used). Performed By: #### P OCGLUC #### [facility] [address] [place] [address] Dr. Kasia Nath GI PANEL (PCR)on 02-13-2023 Adenovirus F 40/41 Not detected Normal NOT DETECTED [facility] Comment on above: Performed By: #### C BC #### [facility] [address] [place] [address] Dr. Kasia Nath Astrovirus Not detected Normal NOT DETECTED [facility] Comment on above: Performed By: #### C BC #### [facility] [address] [place] [address] Dr. Kasia Del Real. Diff toxin A/B Not detected Normal NOT DETECTED [facility] Comment on above: Performed By: #### C BC #### [facility] [address] [place] [address] Dr. Kasia Nath Campylobacter Not detected Normal NOT DETECTED [facility] [place] [facility] Comment on above: Performed By: #### C BC #### [facility] [address] [place] [address] Dr. Kasia Nath Cryptosporidium Not detected Normal NOT DETECTED [facility] Comment on above: Performed By: #### C BC #### [facility] [address] [place] [address] Dr. Kasia Nath Cyclos. Cayetanensis Not detected Normal NOT DETECTED [facility] Comment on above: Performed By: #### C BC #### [facility] [address] [place] [address] Dr. Kasia Nath E. Coli O157 Not Applicable Normal Not Applicable [facility] Comment on above: Performed By: #### C BC #### [facility] [address] [place] [address] Dr. Kasia Nath E. histolytica Not detected Normal NOT DETECTED [facility] Comment on above: Performed By: #### C BC #### [facility] [address] [place] [address] Dr. Kasia Nath EAEC Not detected Normal NOT DETECTED [facility] Comment on above: Performed By: #### C BC #### [facility] [address] [place] [address] Dr. Kasia Nath EIEC Not detected Normal NOT DETECTED [facility] Comment on above: Performed By: #### C BC #### [facility] [address] [place] [address] Dr. Kasia Nath EPEC Not detected Normal NOT DETECTED [facility] Comment on above: Performed By: #### C BC #### [facility] [address] [place] [address] Dr. Kasia Nath ETEC Not detected Normal NOT DETECTED [facility] Comment on above: Performed By: #### C BC #### [facility] [address] [place] [address] Dr. Kasia Nath G. Lamblia Not detected Normal NOT DETECTED [facility] Comment on above: Performed By: #### C BC #### [facility] [address] [place] [address] Dr. Kasia MOYERANEL CONTROLS PASSED Normal [facility] Comment on above: Performed By: #### C BC #### [facility] [address] [place] [address] Dr. Kasai THOMPSON JUNO HEADER GI PANEL BACTERIA Normal T [facility] Comment on above: Performed By: #### C BC #### [facility] [address] [place] [address] Dr. Kasia AGUILARLI GI PANEL DIARRHEAGENIC E.COLI / SHIGELLA Normal [facility] Comment on above: Performed By: #### C BC #### [facility] [address] [address] [address] Kasia GE INFO SEE BELOW Normal [facility] Comment on above: Result Comment: EAEC - Enteroaggregative E. Coli EPEC- Enteropathogenic E. Coli ETEC- Enterotoxigenic E. Coli lt/st STEC- Shigella-like toxin-producing E. Coli stx1/stx2 EIEC- Shigella/Enteroinvasive E. Coli Performed By: #### C BC #### [facility] [address] [address] [address] Kasia GE PARASITES GI PANEL PARASITES Normal [facility] Comment on above: Performed By: #### C BC #### [facility] [address] [place] [address] Dr. Kasia GE VIRUS GI PANEL VIRUSES Normal [facility] Comment on above: Performed By: #### C BC #### [facility] [address] [address] [address] Kasia Nath Norovirus GI/GII Not detected Normal NOT DETECTED [facility] Comment on above: Performed By: #### C BC #### [facility] [address] [place] [address] Dr. Kasia Nath P. Shigelloides Not detected Normal NOT DETECTED [facility] Comment on above: Performed By: #### C BC #### [facility] [address] [address] [address] Kasia Nath Rotavirus A Not detected Normal NOT DETECTED [facility] Comment on above: Performed By: #### C BC #### [facility] [address] [address] [address] Kasia Nath Salmonella Not detected Normal NOT DETECTED [facility] Comment on above: Performed By: #### C BC #### [facility] [address] [place] [address] Dr. Kasia Nath Sapovirus Not detected Normal NOT DETECTED [facility] Comment on above: Performed By: #### C BC #### [facility] [address] [address] [address] Kasia Nath STEC Not detected Normal NOT DETECTED [facility] Comment on above: Performed By: #### C BC #### [facility] [address] [address] [address] Kasia Nath Vibrio Not detected Normal NOT DETECTED [facility] Comment on above: Performed By: #### C BC #### [facility] [address] [address] [address] Kasia Nath Vibrio Cholera Not detected Normal NOT DETECTED [facility] Comment on above: Performed By: #### C BC #### [facility] [address] [place] [address] Dr. Kasia Nath Y. Enterocolitica Not detected Normal NOT DETECTED [facility] Comment on above: Performed By: #### C BC #### [facility] [address] [place] [address] Dr. Kasia Nath LACTATE/LACTIC ACIDon 2022 Lactate [Moles/Vol] 1.7 mmol/L Normal 0.4-2.0 [facility] Comment on above: Performed By: #### L ACT ####[facility] [address] [place] [address]Dr. Kasia Nath LIPASEon 02-13-2023 Lipase [Catalytic activity/Vol] 82.0 U/L Normal 73.0-393.0 [facility] Comment on above: Performed By: #### L IPA, CMP #### [facility] [address] [place] [address] Dr. Kasia Nath POINT OF CARE GLUCOSEon Glucose [Mass/Vol] 229 mg/dL Critically high -[address] [facility] Comment on above: Performed By: #### P OCGLUC #### [facility] [address] [place] [address] Dr. Kasia Nath Glucose [Mass/Vol] 474 mg/dL Critically high -[address] [facility] Comment on above: Performed By: #### P OCGLUC #### [facility] [address] [address] [address] Kasia aNth PROF 14(COMP METB)on 023 Albumin [Mass/Vol] 3.4 g/dL Normal 3.4-5.0 [facility] Comment on above: Performed By: #### L IPA, CMP #### [facility] [address] [address] [address] Kasia Nath Albumin/Globulin [Mass ratio] 0.7 {ratio} Normal [facility] Comment on above: Performed By: #### L IPA, CMP #### [facility] [address] [address] [address] Kasia Nath ALP [Catalytic activity/Vol] 106 U/L Normal 46-116 [facility] Comment on above: Performed By: #### L IPA, CMP #### [facility] [address] [place] [address] Dr. Kasia Nath ALT [Catalytic activity/Vol] 21 U/L Normal 14-59 [facility] Comment on above: Performed By: #### L IPA, CMP #### [facility] [address] [place] [address] Dr. Kasia Nath Anion gap [Moles/Vol] 17.7 mmol/L Normal [facility] Comment on above: Performed By: #### L IPA, CMP #### [facility] [address] [place] [address] Dr. Kasia Nath AST [Catalytic activity/Vol] 11 U/L Critically low 15-37 [facility] Comment on above: Performed By: #### L IPA, CMP #### [facility] [address] [place] [address] Dr. Kasia Nath Bilirubin [Mass/Vol] 0.5 mg/dL Normal 0.2-1.0 [facility] Comment on above: Performed By: #### L IPA, CMP #### [facility] [address] [address] [address] Kasia Nath Calcium [Mass/Vol] 9.6 mg/dL Normal 8.5-10.1 [facility] Comment on above: Performed By: #### L IPA, CMP #### [facility] [address] [address] [address] Kasia Nath Chloride [Moles/Vol] 99 mmol/L Normal 98-107 [facility] Comment on above: Performed By: #### L IPA, CMP #### [facility] [address] [address] [address] Kasia Nath CO2 [Moles/Vol] 20.6 mmol/L Critically low 21.0-32.0 [facility] Comment on above: Performed By: #### L IPA, CMP #### [facility] [address] [address] [address] Kasia Nath Creatinine [Mass/Vol] 2.14 mg/dL Critically high 0.55-1.02 [facility] Comment on above: Performed By: #### L IPA, CMP #### [facility] [address] [address] [address] Kasia Nath EGFR-AF HAITIAN 27 mL/min/1.73m2 Critically low >=60 [facility] Comment on above: Performed By: #### L IPA, CMP #### [facility] [address] [address] [address] Kasia Nath EGFR-NON AF HAITIAN 22 mL/min/1.73m2 Critically low >=60 [facility] Comment on above: Performed By: #### L IPA, CMP #### [facility] [address] [address] [address] Kasia Nath Globulin (S) [Mass/Vol] 4.8 g/dL Normal [facility] Comment on above: Performed By: #### L IPA, CMP #### [facility] [address] [address] [address] Kasia Nath Glucose [Mass/Vol] 498 mg/dL Critically high 74-[address] [facility] Comment on above: Performed By: #### L IPA, CMP #### [facility] [address] [address] [address] Kasia Nath Potassium [Moles/Vol] 5.3 mmol/L Critically high 3.5-5.1 [facility] Comment on above: Performed By: #### L IPA, CMP #### [facility] [address] [address] [address] Kasia Nath Protein [Mass/Vol] 8.2 g/dL Normal 6.4-8.2 [facility] Comment on above: Performed By: #### L IPA, CMP #### [facility] [address] [address] [address] Kasia Nath Sodium [Moles/Vol] 132 mmol/L Critically low 136-145 Th [facility] Comment on above: Performed By: #### L IPA, CMP #### [facility] [address] [address] [address] Kasia Nath Urea nitrogen [Mass/Vol] 86.0 mg/dL Critically high 7.0-18.0 [facility] Comment on above: Performed By: #### L IPA, CMP #### [facility] [address] [address] [address] Kasia Nath Urea nitrogen/Creatinine [Mass ratio] 40.2 mg/mg Normal [facility] Comment on above: Performed By: #### L IPA, CMP #### [facility] [address] [address] [address] Kasia Nath UA RANDOM W/MICROSCOPICon BACTERIA TRACE Abnormal NONE SEEN [facility] Comment on above: Performed By: #### U AMIC ####[facility] [address] [place] [address]DrDoreen Nath Bilirubin Ql (U) Negative Normal NEGATIVE [facility] Comment on above: Performed By: #### U AMIC ####[facility] [address] [place] [id number]. Kasia Nath CAST SEEN Abnormal NONE SEEN [facility] Comment on above: Performed By: #### U AMIC ####[facility] [address] [place] [id number] Nath Clarity (U) CLEAR Normal CLEAR [facility] Comment on above: Performed By: #### U AMIC ####[facility] [address] [place] [address]Dr. Kasia Nath Color (U) LT. YELLOW Normal YELLOW [facility] Comment on above: Performed By: #### U AMIC ####[facility] [address] [place] [address]Dr. Kasia Nath Crystals LM Nom (Urine sed) NONE SEEN Normal NONE SEEN [facility] Comment on above: Performed By: #### U AMIC ####[facility] [id number] [place], [place] [address]Dr. Kasia Nath Epithelial cells LM Ql (Urine sed) FEW Abnormal NONE SEEN /RARE [facility] Comment on above: Performed By: #### U AMIC ####[facility] [id number] [place], [place] [address]Dr. Kasia Nath Glucose Ql (U) >1000 Abnormal NEGATIVE [facility] Comment on above: Performed By: #### U AMIC ####[facility] [id number] [place], [place] [address]Dr. Kasia Nath Hemoglobin Ql (U) Negative Normal NEGATIVE [facility] Comment on above: Performed By: #### U AMIC ####[facility] [id number] [place], [place] [address]Dr. Kasia Nath HYALINE CAST RARE Normal [facility] Comment on above: Performed By: #### U AMIC ####[facility] [address] [place] [address]Dr. Kasia Nath Ketones Ql (U) Negative Normal NEGATIVE [facility] Comment on above: Performed By: #### U AMIC ####[facility] [id number] [place], [place] [address]Dr. Kasia Nath LEUKOCYTES Negative Normal NEGATIVE [facility] Comment on above: Performed By: #### U AMIC ####[facility] [id number] [place], [place] [address]Dr. Kasia Nath MUCOUS NONE SEEN Normal NONE SEEN [facility] Comment on above: Performed By: #### U AMIC ####[facility] [id number] [place], [place] [address]Dr. Kasia Nath Nitrite Ql (U) Negative Normal NEGATIVE [facility] Comment on above: Performed By: #### U AMIC ####[facility] [address] [place] [address]Dr. Kasia Nath pH (U) 5.5 [pH] Normal 5-9 [facility] Comment on above: Performed By: #### U AMIC ####[facility] [address]txq[address] [place] [address]Dr. Kasia Nath RBC 0-2 Normal 0-2 [facility] Comment on above: Performed By: #### U AMIC ####[facility] [address] [place] [address]Dr. Kasia Nath SPEC GRAVITY 1.015 Normal 1.005-<=1.02 5 [facility] Comment on above: Performed By: #### U AMIC ####[facility] [id number] [place], [place] [address]Dr. Kasia Nath UA PROTEIN TRACE Normal NEGATIVE/ TRACE [facility] Comment on above: Performed By: #### U AMIC ####[facility] [id number] [place], [place] [address]Dr. Kasia Nath Urobilinogen Qn (U) 0.2 {Meka'U}/dL Normal 0.2 - 1. 0 [facility] Comment on above: Performed By: #### U AMIC ####[facility] [id number] [place], [place] [address]Dr. Kasia Nath WBC 0-2 Abnormal NONE SEEN [facility] Comment on above: Performed By: #### U AMIC ####[facility] [address] [place] [address]Dr. Kasia Nath BNPon 01-16-2023 Natriuretic peptide B (Bld) [Mass/Vol] 1675.0 pg/mL Normal <=1,800.0 [facility] Comment on above: Performed By: #### B CAR MECHANIC HELPER, CMP ####[facility] [id number] [place], [place] [address]Dr. Kasia Nath PROF 14(COMP METB)on 023 Albumin [Mass/Vol] 3.4 g/dL Normal 3.4-5.0 [facility] Comment on above: Performed By: #### B CAR MECHANIC HELPER, CMP ####[facility] [address] [place] [address]Dr. Kasia Nath Albumin/Globulin [Mass ratio] 0.8 {ratio} Normal [facility] Comment on above: Performed By: #### B CAR MECHANIC HELPER, CMP ####[facility] [address] [place] [address]Dr. Kasia Nath ALP [Catalytic activity/Vol] 99 U/L Normal 46-116 [facility] Comment on above: Performed By: #### B CAR MECHANIC HELPER, CMP ####[facility] [id number] [place], [place] [address]Dr. Kasia Nath ALT [Catalytic activity/Vol] 18 U/L Normal 14-59 [facility] Comment on above: Performed By: #### B CAR MECHANIC HELPER, CMP ####[facility] [id number] [place], [place] [address]Dr. Kasia Nath Anion gap [Moles/Vol] 10.6 mmol/L Normal [facility] Comment on above: Performed By: #### B CAR MECHANIC HELPER, CMP ####[facility] Usxkuilm[address] [place], [place] [address]Dr. Kasia Nath AST [Catalytic activity/Vol] 15 U/L Normal 15-37 [facility] Comment on above: Performed By: #### B CAR MECHANIC HELPER, CMP ####[facility] [address] [place] [address]Dr. Kasia Nath Bilirubin [Mass/Vol] 0.5 mg/dL Normal 0.2-1.0 [facility] Comment on above: Performed By: #### B CAR MECHANIC HELPER, CMP ####[facility] Jlicf[address]iz[address] [place], [place] [address]Dr. Kasia Nath Calcium [Mass/Vol] 9.1 mg/dL Normal 8.5-10.1 [facility] Comment on above: Performed By: #### B CAR MECHANIC HELPER, CMP ####[facility] [id number] [place], [place] [address]Dr. Kasia Nath Chloride [Moles/Vol] 98 mmol/L Normal 98-107 [facility] Comment on above: Performed By: #### B CAR MECHANIC HELPER, CMP ####[facility] [id number] [place], [place] [address]Dr. Kasia Nath CO2 [Moles/Vol] 30.4 mmol/L Normal 21.0-32.0 [facility] Comment on above: Performed By: #### B CAR MECHANIC HELPER, CMP ####[facility] [id number] [place], [place] [address]Dr. Kasia Nath Creatinine [Mass/Vol] 1.44 mg/dL Critically high 0.55-1.02 [facility] Comment on above: Performed By: #### B CAR MECHANIC HELPER, CMP ####[facility] [id number] [place], [place] [address]Dr. Kasia Portillo EGFR-AF HAITIAN 43 mL/min/1.73m2 Critically low >=60 [facility] Comment on above: Performed By: #### B CAR MECHANIC HELPER, CMP ####[facility] [id number] [place], [place] [address]Dr. Kasia Nath EGFR-NON AF HAITIAN 35 mL/min/1.73m2 Critically low >=60 [facility] Comment on above: Performed By: #### B CAR MECHANIC HELPER, CMP ####[facility] [id number] [place], [place] [address]Dr. Kasia Portillo Globulin (S) [Mass/Vol] 4.4 g/dL Normal [facility] Comment on above: Performed By: #### B CAR MECHANIC HELPER, CMP ####[facility] [id number] [place], [place] [address]Dr. Kasia Portillo Glucose [Mass/Vol] 401 mg/dL Critically high 74-[address] [facility] Comment on above: Performed By: #### B CAR MECHANIC HELPER, CMP ####[facility] [id number] [place], [place] [address]Dr. Kasia Nath Potassium [Moles/Vol] 5.0 mmol/L Normal 3.5-5.1 [facility] Comment on above: Performed By: #### B CAR MECHANIC HELPER, CMP ####[facility] [address] [place] [address]Dr. Kasia Nath Protein [Mass/Vol] 7.8 g/dL Normal 6.4-8.2 [facility] Comment on above: Performed By: #### B CAR MECHANIC HELPER, CMP ####[facility] [id number] [place], [place] [address]Dr. Kasia Nath Sodium [Moles/Vol] 134 mmol/L Critically low 136-145 Th [facility] Comment on above: Performed By: #### B CAR MECHANIC HELPER, CMP ####[facility] Xeggjjdefs[address] [place], [place] [address]Dr. Kasia Nath Urea nitrogen [Mass/Vol] 46.0 mg/dL Critically high 7.0-18.0 [facility] Comment on above: Performed By: #### B CAR MECHANIC HELPER, CMP ####[facility] [id number] [place], [place] [address]Dr. Kasia Nath Urea nitrogen/Creatinine [Mass ratio] 31.9 mg/mg Normal [facility] Comment on above: Performed By: #### B CAR MECHANIC HELPER, CMP ####[facility] [id number] [place], [place] [address]Dr. Kasia Nath BNPon 01-05-2023 Natriuretic peptide B (Bld) [Mass/Vol] 1389.0 pg/mL Normal <=1,800.0 [facility] Comment on above: Performed By: #### B CAR MECHANIC HELPER, CMADM, CMP ####[facility] Gh[address]fo[address] [place], [place] [address]Dr. Kasia Nath CARDIAC EMERY ADMITon 023 CK [Catalytic activity/Vol] 138 U/L Normal 26-192 [facility] Comment on above: Performed By: #### B CAR MECHANIC HELPER, CMADM, CMP ####[facility] [id number] [place], [place] [address]Dr. Kasia Nath CK.MB [Mass/Vol] 2.22 ng/mL Normal <=3.60 [facility] Comment on above: Performed By: #### B CAR MECHANIC HELPER, CMADM, CMP ####[facility] [id number] [place], [place] [address]Dr. Kasia Nath HSTROP 15.9 pg/mL Normal 4.0-51.3 [facility] Comment on above: Result Comment: CUT- OFF POINTS HAVE BEEN ESTABLISHED BASED ON THE FOURTH UNIVERSAL DEFINITIONS OF MYOCARDIAL INFARCTION. THE UPPER REFERENCE LIMIT (URL) OF TROPONIN, DEFINED THE 99TH PERCENTILE OF cTnI DISTRIBUTION IN A REFERENCE POPULATION, HAS BEEN CONFIRMED THE DECISION THRESHOLD FOR [place] DIAGNOSIS. Performed By: #### B CAR MECHANIC HELPER, CMADM, CMP ####[facility] [address] [place] [id number]. Kasia Nath GRETTA 178 ng/mL Critically high 9-82 [facility] Comment on above: Performed By: #### B CAR MECHANIC HELPER, CMADM, CMP ####[facility] [id number] [place] [address]Dr. Kasia Nath CBC AUTO DIFFon 01-05-2023 BASO # 0.1 103/ul Normal 0.0-0.1 [facility] Comment on above: Performed By: #### C BC #### [facility] [address] [address] [address] Kasia Nath Basophils/100 WBC (Bld) 0.7 % Normal 0.2-2.[address] [facility] Comment on above: Performed By: #### C BC #### [facility] [address] [place] [address] Dr. Kasia Nath EO # 0.3 103/ul Normal 0.0-0.7 [facility] Comment on above: Performed By: #### C BC #### [facility] [address] [address] [address] Kasia Nath Eosinophils/100 WBC (Bld) 2.9 % Normal 0.9-7.0 [facility] Comment on above: Performed By: #### C BC #### [facility] [address] [place] [address] Dr. Kasia Nath Erythrocyte distribution width (RBC) [Ratio] 13.5 % Normal 11.0-15.0 [facility] Comment on above: Performed By: #### C BC #### [facility] [address] [place] [address] Dr. Kasia Nath Hematocrit (Bld) [Volume fraction] 39.8 % Normal 36.0-48.0 [facility] Comment on above: Performed By: #### C BC #### [facility] [address] [place] [address] Dr. Kasia Nath Hemoglobin (Bld) [Mass/Vol] 13.5 g/dL Normal 12.0-16.0 [facility] Comment on above: Performed By: #### C BC #### [facility] [address] [place] [address] Dr. Kasia Nath IG # 0.02 10e3/ul Normal 0.00-0.03 [facility] Comment on above: Performed By: #### C BC #### [facility] [address] [place] [address] Dr. Kasia Nath IG % 0.2 % Normal 0.0-0.5 [facility] Comment on above: Performed By: #### C BC #### [facility] [address] [place] [address] Dr. Kasia Nath LYMPH # 1.9 103/ul Normal 1.2-3.8 [facility] Comment on above: Performed By: #### C BC #### [facility] [address] [place] [address] Dr. Kasia Nath Lymphocytes/100 WBC (Bld) 22.0 % Normal 20.5-60.0 [facility] Comment on above: Performed By: #### C BC #### [facility] [address] [place] [address] Dr. Kasia Nath MANUAL DIFF REQ NO Normal [facility] Comment on above: Performed By: #### C BC #### [facility] [address] [place] [address] Dr. Kasia Nath MCH (RBC) [Entitic mass] 29.8 pg Normal 26.7-34.0 [facility] Comment on above: Performed By: #### C BC #### [facility] [address] [place] [address] Dr. Kasia Nath MCHC (RBC) [Mass/Vol] 33.9 g/dL Normal 29.9-35.2 [facility] Comment on above: Performed By: #### C BC #### [facility] [address] [place] [address] Dr. Kasia Nath MCV (RBC) [Entitic vol] 87.9 fL Normal 81.0-99.[address] [facility] Comment on above: Performed By: #### C BC #### [facility] [address] [place] [address] Dr. Kasia Nath MONO # 0.8 103/ul Normal 0.3-0.8 [facility] Comment on above: Performed By: #### C BC #### [facility] [address] [place] [address] Dr. Kasia Nath Monocytes/100 WBC (Bld) 8.8 % Normal 1.7-12.[address] [facility] Comment on above: Performed By: #### C BC #### [facility] [address] [place] [address] Dr. Kasia Nath NEUT # 5.6 103/ul Normal 1.4-6.5 [facility] Comment on above: Performed By: #### C BC #### [facility] [address] [place] [address] Dr. Kasia Nath Neutrophils/100 WBC (Bld) 65.4 % Normal 43.0-75.0 [facility] Comment on above: Performed By: #### C BC #### [facility] [address] [place] [address] Dr. Kasia Nath Platelet mean volume (Bld) [Entitic vol] 10.6 fL Normal 9.5-13.5 [facility] Comment on above: Performed By: #### C BC #### [facility] [address] [place] [address] Dr. Kasia Nath PLT 222 103/ul Normal 150-450 [facility] Comment on above: Performed By: #### C BC #### [facility] [address] [place] [address] Dr. Kasia Nath RBC 4.53 106/ul Normal 4.20-5.40 [facility] Comment on above: Performed By: #### C BC #### [facility] [address] [address] [address] Kasia Nath WBC 8.6 103/ul Normal 4.0-11.0 [facility] Comment on above: Performed By: #### C BC #### [facility] [address] [address] [address] Kasia Nath PROF 14(COMP METB)on 023 Albumin [Mass/Vol] 3.3 g/dL Critically low 3.4-5.0 [facility] Comment on above: Performed By: #### B CAR MECHANIC HELPER, CMADM, CMP #### [facility] [address] [place] [address] Dr. Kasia Nath Albumin/Globulin [Mass ratio] 0.7 {ratio} Normal [facility] Comment on above: Performed By: #### B CAR MECHANIC HELPER, CMADM, CMP #### [facility] [address] [address] [address] Kasia Nath ALP [Catalytic activity/Vol] 106 U/L Normal 46-116 [facility] Comment on above: Performed By: #### B CAR MECHANIC HELPER, CMADM, CMP #### [facility] [address] [place] [address] Dr. Kasia Nath ALT [Catalytic activity/Vol] 22 U/L Normal 14-59 [facility] Comment on above: Performed By: #### B CAR MECHANIC HELPER, CMADM, CMP #### [facility] [address] [address] [address] Kasia Nath Anion gap [Moles/Vol] 12.0 mmol/L Normal [facility] Comment on above: Performed By: #### B CAR MECHANIC HELPER, CMADM, CMP #### [facility] [address] [place] [address] Dr. Kasia Nath AST [Catalytic activity/Vol] 23 U/L Normal 15-37 [facility] Comment on above: Performed By: #### B CAR MECHANIC HELPER, CMADM, CMP #### [facility] [address] [place] [address] Dr. Kasia Nath Bilirubin [Mass/Vol] 0.7 mg/dL Normal 0.2-1.0 [facility] Comment on above: Performed By: #### B CAR MECHANIC HELPER, LEONORA, CMP #### [facility] [address] [address] [address] Kasia Nath Calcium [Mass/Vol] 8.8 mg/dL Normal 8.5-10.1 [facility] Comment on above: Performed By: #### B CAR MECHANIC HELPER, CMADM, CMP #### [facility] [address] [address] [address] Kasia Nath Chloride [Moles/Vol] 98 mmol/L Normal 98-107 [facility] Comment on above: Performed By: #### B CAR MECHANIC HELPER, LEONORA, CMP #### [facility] [address] [place] [address] Dr. Kasia Nath CO2 [Moles/Vol] 30.2 mmol/L Normal 21.0-32.0 [facility] Comment on above: Performed By: #### B CAR MECHANIC HELPER, MACDM, CMP #### [facility] [address] [place] [address] Dr. Kasia Nath Creatinine [Mass/Vol] 1.19 mg/dL Critically high 0.55-1.02 [facility] Comment on above: Performed By: #### B CAR MECHANIC HELPER, MACDM, CMP #### [facility] [address] [place] [address] Dr. Kasia Nath EGFR-AF HAITIAN 53 mL/min/1.73m2 Critically low >=60 [facility] Comment on above: Performed By: #### B CAR MECHANIC HELPER, CMADM, CMP #### [facility] [address] [place] [address] Dr. Kasia Nath EGFR-NON AF HAITIAN 44 mL/min/1.73m2 Critically low >=60 [facility] Comment on above: Performed By: #### B CAR MECHANIC HELPER, CMADM, CMP #### [facility] [address] [address] [address] Kasia Nath Globulin (S) [Mass/Vol] 4.7 g/dL Normal [facility] Comment on above: Performed By: #### B CAR MECHANIC HELPER, CMADM, CMP #### [facility] [address] [address] [address] Kasia Nath Glucose [Mass/Vol] 124 mg/dL Critically high 74-[address] [facility] Comment on above: Performed By: #### B CAR MECHANIC HELPER, CMADM, CMP #### [facility] [address] [place] [address] Dr. Kasia Nath Potassium [Moles/Vol] 3.2 mmol/L Critically low 3.5-5.1 [facility] Comment on above: Performed By: #### B CAR MECHANIC HELPER, CMADM, CMP #### [facility] [address] [place] [address] Dr. Kasia Nath Protein [Mass/Vol] 8.0 g/dL Normal 6.4-8.2 [facility] Comment on above: Performed By: #### B CAR MECHANIC HELPER, CMADM, CMP #### [facility] [address] [place] [address] Dr. Kasia Nath Sodium [Moles/Vol] 137 mmol/L Normal 136-145 [facility] Comment on above: Performed By: #### B CAR MECHANIC HELPER, CMADM, CMP #### [facility] [address] [place] [address] Dr. Kasia Nath Urea nitrogen [Mass/Vol] 29.0 mg/dL Critically high 7.0-18.0 [facility] Comment on above: Performed By: #### B CAR MECHANIC HELPER, CMADM, CMP #### [facility] [address] [place] [address] Dr. Kasia Nath Urea nitrogen/Creatinine [Mass ratio] 24.4 mg/mg Normal [facility] Comment on above: Performed By: #### B CAR MECHANIC HELPER, CMADM, CMP #### [facility] [address] [place] [address] Dr. Kasia Nath TROPONIN, HIGH SENSITIVITYon 01-05-2023 HSTROP 18.4 pg/mL Normal 4.0-51.3 [facility] Comment on above: Result Comment: CUT- OFF POINTS HAVE BEEN ESTABLISHED BASED ON THE FOURTH UNIVERSAL DEFINITIONS OF MYOCARDIAL INFARCTION. THE UPPER REFERENCE LIMIT (URL) OF TROPONIN, DEFINED THE 99TH PERCENTILE OF cTnI DISTRIBUTION IN A REFERENCE POPULATION, HAS BEEN CONFIRMED THE DECISION THRESHOLD FOR [place] DIAGNOSIS. Performed By: #### H STROPN ####[facility] [id number] [id number]. Kasia Nath XR CHEST 1 Von 01-05-2023 [...] by: BIN ROJAS Date: 2023-01-05 04:39 Normal [facility] BNPon 01-02-2023 Natriuretic peptide B (Bld) [Mass/Vol] 2583.0 pg/mL Critically high <=1,800.0 [facility] Comment on above: Performed By: #### B CAR MECHANIC HELPER, CMP ####[facility] [id number] [id number]. Kasia Nath CBC AUTO DIFFon 01-02-2023 BASO # 0.1 103/ul Normal 0.0-0.1 [facility] Comment on above: Performed By: #### P OCGLUC #### [facility] [address] [address] [address] Kasia Nath Basophils/100 WBC (Bld) 0.9 % Normal 0.2-2.[address] [facility] Comment on above: Performed By: #### P OCGLUC #### [facility] [address] [address] [address] Kasia Nath EO # 0.2 103/ul Normal 0.0-0.7 [facility] Comment on above: Performed By: #### P OCGLUC #### [facility] [address] [place] [address] Dr. Kasia Nath Eosinophils/100 WBC (Bld) 2.3 % Normal 0.9-7.0 [facility] Comment on above: Performed By: #### P OCGLUC #### [facility] [address] [place] [address] Dr. Kasia Nath Erythrocyte distribution width (RBC) [Ratio] 13.8 % Normal 11.0-15.0 [facility] Comment on above: Performed By: #### P OCGLUC #### [facility] [address] [place] [address] Dr. Kasia Nath Hematocrit (Bld) [Volume fraction] 35.5 % Critically low 36.0-48.0 [facility] Comment on above: Performed By: #### P OCGLUC #### [facility] [address] [place] [address] Dr. Kasia Nath Hemoglobin (Bld) [Mass/Vol] 11.6 g/dL Critically low 12.0-16.0 [facility] Comment on above: Performed By: #### P OCGLUC #### [facility] [address] [place] [address] Dr. Kasia Nath IG # 0.02 10e3/ul Normal 0.00-0.03 [facility] Comment on above: Performed By: #### P OCGLUC #### [facility] [address] [place] [address] Dr. Kasia Nath IG % 0.3 % Normal 0.0-0.5 [facility] Comment on above: Performed By: #### P OCGLUC #### [facility] [address] [place] [address] Dr. Kasia Nath LYMPH # 2.0 103/ul Normal 1.2-3.8 [facility] Comment on above: Performed By: #### P OCGLUC #### [facility] [address] [place] [address] Dr. Kasia Nath Lymphocytes/100 WBC (Bld) 24.8 % Normal 20.5-60.0 [facility] Comment on above: Performed By: #### P OCGLUC #### [facility] [address] [place] [address] Dr. Kasia Nath MANUAL DIFF REQ NO Normal [facility] Comment on above: Performed By: #### P OCGLUC #### [facility] [address] [place] [address] Dr. Kasia Nath MCH (RBC) [Entitic mass] 28.7 pg Normal 26.7-34.0 [facility] Comment on above: Performed By: #### P OCGLUC #### [facility] [address] [place] [address] Dr. Kasia Nath MCHC (RBC) [Mass/Vol] 32.7 g/dL Normal 29.9-35.2 [facility] Comment on above: Performed By: #### P OCGLUC #### [facility] [address] [place] [address] Dr. Kasia Nath MCV (RBC) [Entitic vol] 87.9 fL Normal 81.0-99.[address] [facility] Comment on above: Performed By: #### P OCGLUC #### [facility] [address] [place] [address] Dr. Kasia Nath MONO # 0.8 103/ul Normal 0.3-0.8 [facility] Comment on above: Performed By: #### P OCGLUC #### [facility] [address] [place] [address] Dr. Kasia Nath Monocytes/100 WBC (Bld) 9.6 % Normal 1.7-12.[address] [facility] Comment on above: Performed By: #### P OCGLUC #### [facility] [address] [place] [address] Dr. Kasia Nath NEUT # 5.0 103/ul Normal 1.4-6.5 [facility] Comment on above: Performed By: #### P OCGLUC #### [facility] [address] [place] [address] Dr. Kasia Nath Neutrophils/100 WBC (Bld) 62.1 % Normal 43.0-75.0 [facility] Comment on above: Performed By: #### P OCGLUC #### [facility] [address] [address] [address] Kasia Nath Platelet mean volume (Bld) [Entitic vol] 10.7 fL Normal 9.5-13.5 [facility] Comment on above: Performed By: #### P OCGLUC #### [facility] [address] [address] [address] Kasia Nath PLT 204 103/ul Normal 150-450 [facility] Comment on above: Performed By: #### P OCGLUC #### [facility] [address] [address] [address] Kasia Nath RBC 4.04 106/ul Critically low 4.20-5.40 [facility] Comment on above: Performed By: #### P OCGLUC #### [facility] [address] [address] [address] Kasia Nath WBC 8.0 103/ul Normal 4.0-11.0 [facility] Comment on above: Performed By: #### P OCGLUC #### [facility] [address] [address] [address] Kasia Nath GLYCOHEMOGLOBIN A1Con 2022 ADA RECOMMENDATION SEE BELOW Normal [facility] Comment on above: Result Comment: ADA RECOMMENDED LIMIT 4.0 - 6.0 ADA THERAPEUTIC TARGET < 7.0 ACTION SUGGESTED > 7.0 Performed By: #### A 1C ####[facility] [id number] [address]Dr. Kasia Nath Glucose [Mass/Vol] 298 mg/dL Normal [facility] Comment on above: Performed By: #### A 1C ####[facility] [id number] [place] [address]Dr. Kasia Nath HbA1c (Bld) [Mass fraction] 12.0 % Critically high 4.5-6.2 [facility] Comment on above: Performed By: #### A 1C ####[facility] [address] [place] [address]Dr. Kasia Nath POINT OF CARE GLUCOSEon 12-14 Glucose [Mass/Vol] 227 mg/dL Critically high 74-[address] [facility] Comment on above: Performed By: #### C BC #### [facility] [address] [address] [address] Kasia Nath Glucose [Mass/Vol] 214 mg/dL Critically high 74-[address] [facility] Comment on above: Performed By: #### C BC #### [facility] [address] [address] [address] Kasia Nath PROF 14(COMP METB)on 023 Albumin [Mass/Vol] 2.6 g/dL Critically low 3.4-5.0 [facility] Comment on above: Performed By: #### B CAR MECHANIC HELPER, CMP ####[facility] [id number] [address]Dr. Kasia Nath Albumin/Globulin [Mass ratio] 0.6 {ratio} Normal [facility] Comment on above: Performed By: #### B CAR MECHANIC HELPER, CMP ####[facility] [id number] [place] [address]Dr. Kasia Nath ALP [Catalytic activity/Vol] 94 U/L Normal 46-116 [facility] Comment on above: Performed By: #### B CAR MECHANIC HELPER, CMP ####[facility] [id number] [place] [address]Dr. Kasia Nath ALT [Catalytic activity/Vol] 16 U/L Normal 14-59 [facility] Comment on above: Performed By: #### B CAR MECHANIC HELPER, CMP ####[facility] [address] [place] [address]Dr. Kasia Nath Anion gap [Moles/Vol] 10.6 mmol/L Normal [facility] Comment on above: Performed By: #### B CAR MECHANIC HELPER, CMP ####[facility] [id number] [place] [address]Dr. Kasia Nath AST [Catalytic activity/Vol] 15 U/L Normal 15-37 [facility] Comment on above: Performed By: #### B CAR MECHANIC HELPER, CMP ####[facility] [id number] [place], [place] [address]Dr. Kasia Nath Bilirubin [Mass/Vol] 0.8 mg/dL Normal 0.2-1.0 [facility] Comment on above: Performed By: #### B CAR MECHANIC HELPER, CMP ####[facility] [id number] [place], [place] [address]Dr. Kasia Nath Calcium [Mass/Vol] 8.5 mg/dL Normal 8.5-10.1 [facility] Comment on above: Performed By: #### B CAR MECHANIC HELPER, CMP ####[facility] [id number] [place], [place] [address]Dr. Kasia Nath Chloride [Moles/Vol] 102 mmol/L Normal 98-107 [facility] Comment on above: Performed By: #### B CAR MECHANIC HELPER, CMP ####[facility] [id number] [place], [place] [address]Dr. Kasia Nath CO2 [Moles/Vol] 30.2 mmol/L Normal 21.0-32.0 [facility] Comment on above: Performed By: #### B CAR MECHANIC HELPER, CMP ####[facility] [id number] [place], [place] [address]Dr. Kasia Nath Creatinine [Mass/Vol] 0.94 mg/dL Normal 0.55-1.02 [facility] Comment on above: Performed By: #### B CAR MECHANIC HELPER, CMP ####[facility] [id number] [place], [place] [address]Dr. Kasia Portillo EGFR-AF HAITIAN >60 Normal >=60 [facility] Comment on above: Performed By: #### B CAR MECHANIC HELPER, CMP ####[facility] [id number] [place], [place] [address]Dr. Fartuncristy Portillo EGFR-NON AF HAITIAN 58 mL/min/1.73m2 Critically low >=60 [facility] Comment on above: Performed By: #### B CAR MECHANIC HELPER, CMP ####[facility] [id number] [place], [place] [address]Dr. Kasia Nath Globulin (S) [Mass/Vol] 4.0 g/dL Normal [facility] Comment on above: Performed By: #### B CAR MECHANIC HELPER, CMP ####[facility] [address] [place] [address]Dr. Kasia Nath Glucose [Mass/Vol] 150 mg/dL Critically high 74-[address] [facility] Comment on above: Performed By: #### B CAR MECHANIC HELPER, CMP ####[facility] [id number] [place] [address]Dr. Kasia Nath Potassium [Moles/Vol] 3.8 mmol/L Normal 3.5-5.1 [facility] Comment on above: Performed By: #### B CAR MECHANIC HELPER, CMP ####[facility] [address] [place] [address]Dr. Kasia Nath Protein [Mass/Vol] 6.6 g/dL Normal 6.4-8.2 [facility] Comment on above: Performed By: #### B CAR MECHANIC HELPER, CMP ####[facility] [id number] [place], [place] [address]Dr. Kasia Nath Sodium [Moles/Vol] 139 mmol/L Normal 136-145 [facility] Comment on above: Performed By: #### B CAR MECHANIC HELPER, CMP ####[facility] [address] [place] [address]Dr. Kasia Nath Urea nitrogen [Mass/Vol] 24.0 mg/dL Critically high 7.0-18.0 [facility] Comment on above: Performed By: #### B CAR MECHANIC HELPER, CMP ####[facility] [address] [place] [address]Dr. Kasia Nath Urea nitrogen/Creatinine [Mass ratio] 25.5 mg/mg Normal [facility] Comment on above: Performed By: #### B CAR MECHANIC HELPER, CMP ####[facility] [id number] [place] [address]DrDoreen Nath BNPon 01-01-2023 Natriuretic peptide B (Bld) [Mass/Vol] 1419.0 pg/mL Normal <=1,800.0 [facility] Comment on above: Performed By: #### B CAR MECHANIC HELPER #### [facility] [address] [address] [address] Kasia Nath CARDIAC EMERY 3-6on 3 CK [Catalytic activity/Vol] 80 U/L Normal 26-192 [facility] Comment on above: Performed By: #### P OCGLUC #### [facility] [address] [address] [address] Kasia Nath CK.MB [Mass/Vol] 1.85 ng/mL Normal <=3.60 [facility] Comment on above: Performed By: #### P OCGLUC #### [facility] [address] [address] [address] Kasia Nath HSTROP 13.2 pg/mL Normal 4.0-51.3 [facility] Comment on above: Result Comment: CUT- OFF POINTS HAVE BEEN ESTABLISHED BASED ON THE FOURTH UNIVERSAL DEFINITIONS OF MYOCARDIAL INFARCTION. THE UPPER REFERENCE LIMIT (URL) OF TROPONIN, DEFINED THE 99TH PERCENTILE OF cTnI DISTRIBUTION IN A REFERENCE POPULATION, HAS BEEN CONFIRMED THE DECISION THRESHOLD FOR [place] DIAGNOSIS. Performed By: #### P OCGLUC #### [facility] [address] [address] [address] Kasia Nath CK [Catalytic activity/Vol] 73 U/L Normal 26-192 [facility] Comment on above: Performed By: #### P OCGLUC #### [facility] [address] [address] [address] Kasia Nath CK.MB [Mass/Vol] 1.71 ng/mL Normal <=3.60 [facility] Comment on above: Performed By: #### P OCGLUC #### [facility] [address] [address] [address] Kasia Nath HSTROP 13.6 pg/mL Normal 4.0-51.3 [facility] Comment on above: Result Comment: CUT- OFF POINTS HAVE BEEN ESTABLISHED BASED ON THE FOURTH UNIVERSAL DEFINITIONS OF MYOCARDIAL INFARCTION. THE UPPER REFERENCE LIMIT (URL) OF TROPONIN, DEFINED THE 99TH PERCENTILE OF cTnI DISTRIBUTION IN A REFERENCE POPULATION, HAS BEEN CONFIRMED THE DECISION THRESHOLD FOR [place] DIAGNOSIS. Performed By: #### P OCGLUC #### [facility] [address] [place] [address] Dr. Kasia Nath CARDIAC EMERY ADMITon 023 CK [Catalytic activity/Vol] 71 U/L Normal 26-192 [facility] Comment on above: Performed By: #### C BC #### [facility] [address] [place] [address] Dr. Kasia Nath CK.MB [Mass/Vol] 1.69 ng/mL Normal <=3.60 [facility] Comment on above: Performed By: #### C BC #### [facility] [address] [place] [address] Dr. Kasia Nath HSTROP 13.0 pg/mL Normal 4.0-51.3 [facility] Comment on above: Result Comment: CUT- OFF POINTS HAVE BEEN ESTABLISHED BASED ON THE FOURTH UNIVERSAL DEFINITIONS OF MYOCARDIAL INFARCTION. THE UPPER REFERENCE LIMIT (URL) OF TROPONIN, DEFINED THE 99TH PERCENTILE OF cTnI DISTRIBUTION IN A REFERENCE POPULATION, HAS BEEN CONFIRMED THE DECISION THRESHOLD FOR [place] DIAGNOSIS. Performed By: #### C BC #### [facility] [address] [place] [address] Dr. Kasia Nath GRETTA 75 ng/mL Normal 9-82 [facility] Comment on above: Performed By: #### C BC #### [facility] [address] [place] [address] Dr. Kasia Nath CBC AUTO DIFFon 01-01-2023 BASO # 0.1 103/ul Normal 0.0-0.1 [facility] Comment on above: Performed By: #### C BC #### [facility] [address] [place] [address] Dr. Kasia Nath Basophils/100 WBC (Bld) 1.1 % Normal 0.2-2.[address] [facility] Comment on above: Performed By: #### C BC #### [facility] [address] [place] [address] Dr. Kasia Nath EO # 0.2 103/ul Normal 0.0-0.7 [facility] Comment on above: Performed By: #### C BC #### [facility] [address] [place] [address] Dr. Kasia Nath Eosinophils/100 WBC (Bld) 2.9 % Normal 0.9-7.0 [facility] Comment on above: Performed By: #### C BC #### [facility] [address] [place] [address] Dr. Kasia Nath Erythrocyte distribution width (RBC) [Ratio] 13.8 % Normal 11.0-15.0 [facility] Comment on above: Performed By: #### C BC #### [facility] [address] [place] [address] Dr. Kasia Nath Hematocrit (Bld) [Volume fraction] 36.2 % Normal 36.0-48.0 [facility] Comment on above: Performed By: #### C BC #### [facility] [address] [place] [address] Dr. Kasia Nath Hemoglobin (Bld) [Mass/Vol] 12.1 g/dL Normal 12.0-16.0 [facility] Comment on above: Performed By: #### C BC #### [facility] [address] [place] [address] Dr. Kasia Nath IG # 0.02 10e3/ul Normal 0.00-0.03 [facility] Comment on above: Performed By: #### C BC #### [facility] [address] [place] [address] Dr. Kasia Nath IG % 0.3 % Normal 0.0-0.5 [facility] Comment on above: Performed By: #### C BC #### [facility] [address] [place] [address] Dr. Kasia Nath LYMPH # 1.5 103/ul Normal 1.2-3.8 [facility] Comment on above: Performed By: #### C BC #### [facility] [address] [place] [address] Dr. Kasia Nath Lymphocytes/100 WBC (Bld) 19.9 % Critically low 20.5-60.0 [facility] Comment on above: Performed By: #### C BC #### [facility] [address] [place] [address] Dr. Kasia Nath MANUAL DIFF REQ NO Normal [facility] Comment on above: Performed By: #### C BC #### [facility] [address] [place] [address] Dr. Kasia Nath MCH (RBC) [Entitic mass] 29.7 pg Normal 26.7-34.0 [facility] Comment on above: Performed By: #### C BC #### [facility] [address] [place] [address] Dr. Kasia Nath MCHC (RBC) [Mass/Vol] 33.4 g/dL Normal 29.9-35.2 [facility] Comment on above: Performed By: #### C BC #### [facility] [address] [place] [address] Dr. Kasia Nath MCV (RBC) [Entitic vol] 88.9 fL Normal 81.0-99.[address] [facility] Comment on above: Performed By: #### C BC #### [facility] [address] [place] [address] Dr. Kasia Nath MONO # 0.6 103/ul Normal 0.3-0.8 [facility] Comment on above: Performed By: #### C BC #### [facility] [address] [place] [address] Dr. Kasia Nath Monocytes/100 WBC (Bld) 8.0 % Normal 1.7-12.[address] [facility] Comment on above: Performed By: #### C BC #### [facility] [address] [place] [address] Dr. Kasia Nath NEUT # 5.1 103/ul Normal 1.4-6.5 [facility] Comment on above: Performed By: #### C BC #### [facility] [address] [place] [address] Dr. Kasia Nath Neutrophils/100 WBC (Bld) 67.8 % Normal 43.0-75.0 [facility] Comment on above: Performed By: #### C BC #### [facility] [address] [place] [address] Dr. Kasia Nath Platelet mean volume (Bld) [Entitic vol] 10.4 fL Normal 9.5-13.5 [facility] Comment on above: Performed By: #### C BC #### [facility] [address] [place], [place] [address] Dr. Kasia Nath PLT 200 103/ul Normal 150-450 [facility] Comment on above: Performed By: #### C BC #### [facility] [address] [place], [place] [address] Dr. Kasia Nath RBC 4.07 106/ul Critically low 4.20-5.40 [facility] Comment on above: Performed By: #### C BC #### [facility] [address] [place], [place] [address] Dr. Kasia Nath WBC 7.5 103/ul Normal 4.0-11.0 [facility] Comment on above: Performed By: #### C BC #### [facility] [address] [place], [place] [address] CHEST WO CONon [...] two extremes (Agatston score 101-1000). https://pubs.rsna.org /doi/abs/10.1148/radi [email or web address] Electronically authenticated by: RENETTA MICHAELS Date: 2023-01-01 14:55 Normal [facility] Covid-19 PCR (CVDTBH)on 12-14 SARS-CoV-2 (COVID-19) RNA FERN+probe Ql (Unsp spec) Not detected Normal NOT DETECTED [facility] Comment on above: Result Comment: When [...] for this test is supported by the Computer Systems Designer of Health and Human Service's declaration that [...] longer be used). Performed By: #### C [facility] #### [facility] [address] [place] [address] Dr. Kasia Nath ECHO LIMITED STUDYon 023 ECHO LIMITED STUDY Patient: SAIMA CALL Exam Date: 01/01/2023 : 1945 Gender:F Ordering : LD GUERRERO . Admission #: [id number] Family : Order #: [id number] CLICK HERE TO VIEW EXAM ECHOCARDIOGRAM REPORT [...] Pulmonic Valve Right Atrium Dictated by: Rica Kapaln M.D. on 01/01/2023 at 13:15 Approved by: Rica Kaplan M.D. on 01/01/2023 at 13:19 Normal [facility] GLYCOHEMOGLOBIN A1Con 2022 ADA RECOMMENDATION SEE BELOW [facility] Comment on above: Result Comment: ADA RECOMMENDED LIMIT 4.0 - 6.0 ADA THERAPEUTIC TARGET < 7.0 ACTION SUGGESTED > 7.0 Performed By: #### P OCGLUC #### [facility] [address] [place] [address] [address] Kasia Nath Glucose [Mass/Vol] 318 mg/dL Normal [facility] Comment on above: Performed By: #### P OCGLUC #### [facility] [address] [place] [address] [address] Kasia Nath HbA1c (Bld) [Mass fraction] 12.7 % Critically high 4.5-6.2 [facility] Comment on above: Performed By: #### P OCGLUC #### [facility] [address] [place] [address] [address] Kasia Nath POINT OF CARE GLUCOSEon 12-14 Glucose [Mass/Vol] 162 mg/dL Critically high 74-[address] [facility] Comment on above: Performed By: #### P OCGLUC ####[facility] [address] [place] [address]Dr. Kasia Nath Glucose [Mass/Vol] 213 mg/dL Critically high 74-[address] [facility] Comment on above: Performed By: #### P OCGLUC ####[facility] [address] [place] [address]Dr. Kasia Nath Glucose [Mass/Vol] 248 mg/dL Critically high 74-[address] [facility] Comment on above: Performed By: #### P OCGLUC #### [facility] [address] [place] [address] [address] Kasia Nath PROF CHEM 8 (BAS METB)on Anion gap [Moles/Vol] 11.8 mmol/L Normal [facility] Comment on above: Performed By: #### C BC #### [facility] [address] [place] [address] Dr. Kasia Nath Calcium [Mass/Vol] 8.4 mg/dL Critically low 8.5-10.1 [facility] Comment on above: Performed By: #### C BC #### [facility] [address] [place] [address] Dr. Kasia Nath Chloride [Moles/Vol] 102 mmol/L Normal 98-107 [facility] Comment on above: Performed By: #### C BC #### [facility] [address] [place] [address] Dr. Kasia Nath CO2 [Moles/Vol] 28.4 mmol/L Normal 21.0-32.0 [facility] Comment on above: Performed By: #### C BC #### [facility] [id number] Kasia Nath Creatinine [Mass/Vol] 1.09 mg/dL Critically high 0.55-1.02 [facility] Comment on above: Performed By: #### C BC #### [facility] [id number] Kasia Nath EGFR-AF HAITIAN 59 mL/min/1.73m2 Critically low >=60 [facility] Comment on above: Performed By: #### C BC #### [facility] [id number] Kasia Nath EGFR-NON AF HAITIAN 49 mL/min/1.73m2 Critically low >=60 [facility] Comment on above: Performed By: #### C BC #### [facility] [address] [place] [address] [address] Kasia Nath Glucose [Mass/Vol] 247 mg/dL Critically high 74-106 [facility] Comment on above: Performed By: #### C BC #### [facility] [address] [place] [address] [address] Kasia Nath Potassium [Moles/Vol] 4.2 mmol/L Normal 3.5-5.1 [facility] Comment on above: Performed By: #### C BC #### [facility] [phone] Kasia Nath Sodium [Moles/Vol] 138 mmol/L Normal 136-145 [facility] Comment on above: Performed By: #### C BC #### [facility] [phone] Kasia Nath Urea nitrogen [Mass/Vol] 28.0 mg/dL Critically high 7.0-18.0 [facility] Comment on above: Performed By: #### C BC #### [facility] [phone] Kasia Nath Urea nitrogen/Creatinine [Mass ratio] 25.7 mg/mg Normal [facility] Comment on above: Performed By: #### C BC #### [facility] [phone] Kasia Nath XR CHEST 1 Von [...] by: Miranda ALVAREZ Date: 2023-01-01 05:38 Normal [facility] ECHOCARDIO M/2D COMPLETEon 1 11-15-2021 ECHOCARDIO M/2D COMPLETE Patient: JOE CALL Exam Date: 09/15/2022 : 1945 Gender:F Ordering : YAMEL [facility]CRACKEN [facility] Admission #: [id number] Family : DR SHANTEL STEVEN M.D. Order #: [id number] CLICK HERE TO VIEW EXAM ECHOCARDIOGRAM REPORT [...] M.D. on 09/15/2022 at 18:17 Normal [facility] GI PANEL (PCR)on 05-02-2022 Adenovirus F 40/41 Not detected Normal NOT DETECTED [facility] Comment on above: Performed By: #### P OCGLUC #### [facility] [address] [place] [address] Dr. Kasia Nath Astrovirus Not detected Normal NOT DETECTED [facility] Comment on above: Performed By: #### P OCGLUC #### [facility] [address] [place] [address] Dr. Kasia Nath C. Diff toxin A/B Not detected Normal NOT DETECTED [facility] Comment on above: Performed By: #### P OCGLUC #### [facility] [address] [place] [address] Dr. Kasia Nath Campylobacter Not detected Normal NOT DETECTED [facility] Comment on above: Performed By: #### P OCGLUC #### [facility] [address] [place] [address] Dr. Kasia Nath Cryptosporidium Not detected Normal NOT DETECTED [facility] Comment on above: Performed By: #### P OCGLUC #### [facility] [address] [place] [address] Dr. Kasia Nath Cyclos. Cayetanensis Not detected Normal NOT DETECTED [facility] Comment on above: Performed By: #### P OCGLUC #### [facility] [address] [place] [address] Dr. Kasia Nath E. Coli O157 Not Applicable Normal Not Applicable [facility] Comment on above: Performed By: #### P OCGLUC #### [facility] [address] [place] [address] Dr. Kasia Nath E. histolytica Not detected Normal NOT DETECTED [facility] Comment on above: Performed By: #### P OCGLUC #### [facility] [address] [place] [address] Dr. Kasia Nath EAEC Not detected Normal NOT DETECTED [facility] Comment on above: Performed By: #### P OCGLUC #### [facility] [address] [place] [address] Dr. Kasia Nath EIEC Not detected Normal NOT DETECTED [facility] Comment on above: Performed By: #### P OCGLUC #### [facility] [address] [place] [address] Dr. Kasia Nath EPEC Detected Abnormal NOT DETECTED [facility] Comment on above: Performed By: #### P OCGLUC #### [facility] [address] [place] [address] Dr. Kasia Nath ETEC Not detected Normal NOT DETECTED [facility] Comment on above: Performed By: #### P OCGLUC #### [facility] [address] [place] [address] Dr. Kasia Nath G. Lamblia Not detected Normal NOT DETECTED [facility] Comment on above: Performed By: #### P OCGLUC #### [facility] [address] [place] [address] Dr. Kasia KHAN CONTROLS PASSED Normal [facility] Comment on above: Performed By: #### P OCGLUC #### [facility] [address] [place] [address] Dr. Kasia [facility] HEADER GI PANEL BACTERIA Normal [facility] Comment on above: Performed By: #### P OCGLUC #### [facility] [address] [place] [address] Dr. Kasia GE ECOLI GI PANEL DIARRHEAGENIC E.COLI / SHIGELLA Normal [facility] Comment on above: Performed By: #### P OCGLUC #### [facility] [address] [place] [address] Dr. Kasia GE INFO SEE BELOW Normal [facility] Comment on above: Result Comment: EAEC - Enteroaggregative E. Coli EPEC- Enteropathogenic E. Coli ETEC- Enterotoxigenic E. Coli lt/st STEC- Shigella-like toxin-producing E. Coli stx1/stx2 EIEC- Shigella/Enteroinvasive E. Coli Performed By: #### P OCGLUC #### [facility] [address] [place] [address] [address] Kasia GE PARASITES GI PANEL PARASITES Normal [facility] Comment on above: Performed By: #### P OCGLUC #### [facility] [address] [place] [address] [address] Kasia GE VIRUS GI PANEL VIRUSES Normal [facility] Comment on above: Performed By: #### P OCGLUC #### [facility] [address] [place] [address] [address] Kasia Nath Norovirus GI/GII Not detected Normal NOT DETECTED [facility] Comment on above: Performed By: #### P OCGLUC #### [facility] [address] [place] [address] [address] Kasia Nath P. Shigelloides Not detected Normal NOT DETECTED [facility] Comment on above: Performed By: #### P OCGLUC #### [facility] [address] [place] [address] [address] Kasia Nath Rotavirus A Not detected Normal NOT DETECTED [facility] Comment on above: Performed By: #### P OCGLUC #### [facility] [address] [place] [address] [address] Kasia Nath Salmonella Not detected Normal NOT DETECTED [facility] Comment on above: Performed By: #### P OCGLUC #### [facility] [address] [place] [address] [address] Kasia Nath Sapovirus Not detected Normal NOT DETECTED [facility] Comment on above: Performed By: #### P OCGLUC #### [facility] [address] [place] [address] [address] Kasia Nath STEC Not detected Normal NOT DETECTED [facility] Comment on above: Performed By: #### P OCGLUC #### [facility] [address] [place] [address] [address] Kasia Nath Vibrio Not detected Normal NOT DETECTED [facility] Comment on above: Performed By: #### P OCGLUC #### [facility] [address] [place] [address] [address] Kasia Nath Vibrio Cholera Not detected Normal NOT DETECTED [facility] Comment on above: Performed By: #### P OCGLUC #### [facility] [address] [place] [address] [address] Kasia Nath Y. Enterocolitica Not detected Normal NOT DETECTED [facility] Comment on above: Performed By: #### P OCGLUC #### [facility] [address] [address] [address] Kasia Nath OCC BLD IMMUNO SCREENon 04-13 OCCULT BLOOD Negative Normal NEGATIVE [facility] Comment on above: Performed By: #### C BC #### [facility] [address] [place] [address] Dr. Kasia Nath XR knee BI 4Von 08-25-2021 XR knee BI 4V [facility] [employer] Other XR knee BI 4V [facility] [employer] Other XR knee BI 4V [address] [place] [address] [employer] Other XR knee BI 4V [address] [employer] Other XR knee BI 4V XRay Report [employer] Other XR knee BI 4V Signed [employer] Other XR knee BI 4V Patient: Joe Call MR#: [id number] [place] [employer] Other XR knee BI 4V 0 [employer] Other XR knee BI 4V : 1945 Acct:[id number] [employer] Other XR knee BI 4V Age/Sex: 76 / F ADM Date: 08/25/21 [employer] Other XR knee BI 4V Loc: [facility] Room: Type : [facility] [employer] Other XR knee BI 4V Attending Dr: Akbar Cui II, MD [employer] Other XR knee BI 4V Ordering Provider: Akbar Cui MD [employer] Other XR knee BI 4V Date of Service: 08/25/21 [employer] Other XR knee BI 4V XR/XR knee BI 4V: Pain in right knee;Pain in left knee [employer] Other XR knee BI 4V Copies to: Akbar Cui MD [employer] Other XR knee BI 4V XR knee BI 4V 08/25/2021 1:32 PM [employer] Other XR knee BI 4V SIGNS AND SYMPTOMS: Bilateral knee pain with decreased range of motion, weakness [employer] Other XR knee BI 4V PROTOCOL: Frontal, lateral, and sunrise views of the bilateral knees [employer] Other XR knee BI 4V COMPARISON: None [employer] Other XR knee BI 4V FINDINGS: [employer] Other XR knee BI 4V There is mild narrowing of the medial weightbearing joint spaces. There is mild patellofemoral [employer] Other XR knee BI 4V joint space loss. There is spurring of the poles of the patella bilaterally. There is mild lateral [employer] Other XR knee BI 4V patellar subluxation bilaterally. There is no evidence of acute displaced fracture. Well-corticated [employer] Other XR knee BI 4V ossific structures o r separate from the right medial weightbearing joint space. This may represent a [employer] Other XR knee BI 4V calcified loose bodies. [employer] Other XR knee BI 4V XR/XR knee BI 4V [employer] Other XR knee BI 4V IMPRESSION: [employer] Other XR knee BI 4V Degenerative changes are noted are noted bilaterally, as above. [employer] Other XR knee BI 4V Well-corticated ossific structures or separate from the right medial weightbearing joint space. This [employer] Other XR knee BI 4V may represent a calcified loose bodies. [employer] Other XR knee BI 4V No acute displaced fracture. [employer] Other XR knee BI 4V There is mild latera l subluxation of the patella within the patellofemoral joint space bilaterally. [employer] Other XR knee BI 4V Impression dictated by: Emery Lobo M.D.08/25/2021 2:51 PM [employer] Other XR knee BI 4V Dictation Location: [place] [address] [employer] Other XR knee BI 4V Transcribed By: [facility] 08/25/21 [facility] [employer] Other XR knee BI 4V Dictated By: Emery Lobo II, MD 08/25/21 [facility] [employer] Other XR knee BI 4V Signed By: [employer] Other XR knee BI 4V 08/25/21 [facility] [employer] [facility] [employer] Other XR pelvis 1-2Von 08-25-2021 XR pelvis 1-2V XR/XR pelvis 1-2V: Pain in right knee;Pain in left knee [employer] Other XR pelvis 1-2V XR pelvis 1-2V 08/25/2021 1:32 PM [employer] Other XR pelvis 1-2V SIGNS AND SYMPTOMS: Bilateral generalized knee pain, limited range of motion with weakness [employer] Other XR pelvis 1-2V PROTOCOL: Frontal radiograph of the pelvis [employer] Other XR pelvis 1-2V There is mild narrowing of the weightbearing joint spaces. Mild degenerative changes are noted in [employer] Other XR pelvis 1-2V the symphysis pubis. There is no evidence of fracture or dislocation. Vascular calcifications are [employer] Other XR pelvis 1-2V present in the pelvis. [employer] Other XR pelvis 1-2V XR/XR pelvis 1-2V [employer] Other XR pelvis 1-2V No fracture or dislocation. [employer] Other XR pelvis 1-2V Mild degenerative changes are noted in the joint space of the hips. [employer] Other XR pelvis 1-2V Impression dictated by: Emery Lobo M.D.08/25/2021 2:54 PM [employer] Other XR pelvis 1-2V Transcribed By: RAFAEL 08/25/21 [facility] [employer] Other XR pelvis 1-2V Dictated By: Emery Lobo II, MD 08/25/21 [facility] [employer] Other XR pelvis 1-2V 08/25/21 [facility] [employer] Other Vital Signs Date Time Vital Sign Value Performing Clinician Facility 07-07-2024 11:41-0400 Body height 165.1 cm MD Shantel Steven Work Phone: [facility] 07-07-2024 11:41-0400 Body mass index (BMI) [Ratio] 42.4 kg/m2 MD Shantel Steven Work Phone: [facility] 07-07-2024 11:41-0400 Body weight 115.66 kg MD Shantel Steven Work Phone: [facility] 07-07-2024 11:41-0400 Diastolic blood pressure 79 mm[Hg] MD Shantel Steven Work Phone: [facility] 07-07-2024 11:41-0400 Heart rate 66 /min MD Shantel Steven Work Phone: [facility] 07-07-2024 11:41-0400 Systolic blood pressure 132 mm[Hg] MD Shantel Steven Work Phone: [facility] 06-16-2024 13:08-0400 Body height 165.1 cm MD Shantel Steven Work Phone: [facility] 06-16-2024 13:08-0400 Body mass index (BMI) [Ratio] 41.9 kg/m2 MD Shantel Steven Work Phone: [facility] 06-16-2024 13:08-0400 Body weight 114.3 kg MD Shantel Steven Work Phone: [facility] 06-16-2024 13:08-0400 Diastolic blood pressure 73 mm[Hg] MD Shantel Steven Work Phone: [facility] 06-16-2024 13:08-0400 Heart rate 55 /min MD Shantel Steven Work Phone: [facility] 06-16-2024 13:08-0400 Systolic blood pressure 137 mm[Hg] MD Shantel Steven Work Phone: [facility] 06-05-2024 11:51-0400 Body height 165.1 cm MD Shantel Steven Work Phone: [facility] 06-05-2024 11:51-0400 Body mass index (BMI) [Ratio] 43.2 kg/m2 MD Shantel Steven Work Phone: [facility] 06-05-2024 11:51-0400 Body temperature 96.6 [degF] MD Shantel Steven Work Phone: [facility] 06-05-2024 11:51-0400 Body weight 117.7 kg MD Shantel Steven Work Phone: [facility] 06-05-2024 11:51-0400 Diastolic blood pressure 74 mm[Hg] MD Shantel Steven Work Phone: [facility] 06-05-2024 11:51-0400 Heart rate 63 /min MD Shantel Steven Work Phone: [facility] 06-05-2024 11:51-0400 Respiratory rate 18 /min MD Shantel Steven Work Phone: [facility] 06-05-2024 11:51-0400 SaO2% (BldA) [Mass fraction] 97 % MD Shantel Steven Work Phone: [facility] 06-05-2024 11:51-0400 Systolic blood pressure 138 mm[Hg] MD Shantel Steven Work Phone: [facility] 05-22-2024 09:18-0400 Heart rate 55 /min MD Shantel Steven Work Phone: [facility] 05-22-2024 09:09-0400 Body temperature 97.8 [degF] MD Shantel Steven Work Phone: [facility] 05-22-2024 09:09-0400 Diastolic blood pressure 64 mm[Hg] MD Shantel Steven Work Phone: [facility] 05-22-2024 09:09-0400 Respiratory rate 22 /min MD Shantel Steven Work Phone: [facility] 05-22-2024 09:09-0400 SaO2% (BldA) [Mass fraction] 94 % MD Shantel Steven Work Phone: [facility] 05-22-2024 09:09-0400 Systolic blood pressure 140 mm[Hg] MD Shantel Steven Work Phone: [facility] 05-22-2024 09:08-0400 Body height 165.1 cm MD Shantel Steven Work Phone: [facility] 05-22-2024 09:08-0400 Body weight 117.48 kg MD Shantel Steven Work Phone: [facility] 05-19-2024 14:16-0400 Body height 165.1 cm MD Shantel Steven Work Phone: [facility] 05-19-2024 14:16-0400 Body mass index (BMI) [Ratio] 43.1 kg/m2 MD Shantel Steven Work Phone: [facility] 05-19-2024 14:16-0400 Body weight 117.48 kg MD Shantel Steven Work Phone: [facility] 05-19-2024 14:16-0400 Diastolic blood pressure 72 mm[Hg] MD Shantel Steven Work Phone: [facility] 05-19-2024 14:16-0400 Heart rate 56 /min MD Shantel Steven Work Phone: [facility] 05-19-2024 14:16-0400 Systolic blood pressure 133 mm[Hg] MD Shantel Steven Work Phone: [facility] 05-07-2024 11:52-0400 Body height 165.1 cm MD Shantel Steven Work Phone: [facility] 05-07-2024 11:52-0400 Body mass index (BMI) [Ratio] 41.5 kg/m2 MD Shantel Steven Work Phone: [facility] 05-07-2024 11:52-0400 Body temperature 98.5 [degF] MD Shantel Steven Work Phone: [facility] 05-07-2024 11:52-0400 Body weight 113.39 kg MD Shantel Steven Work Phone: [facility] 05-07-2024 11:52-0400 Diastolic blood pressure 81 mm[Hg] MD Shantel Steven Work Phone: [facility] 05-07-2024 11:52-0400 Heart rate 91 /min MD Shantel Steven Work Phone: [facility] 05-07-2024 11:52-0400 Systolic blood pressure 141 mm[Hg] MD Shantel Steven Work Phone: [facility] 04-29-2024 12:54-0400 Body height 165.1 cm MD Shantel Steven Work Phone: [facility] 04-29-2024 12:54-0400 Body mass index (BMI) [Ratio] 41.5 kg/m2 MD Shantel Steven Work Phone: [facility] 04-29-2024 12:54-0400 Body weight 113.39 kg MD Shantel Steven Work Phone: [facility] 04-29-2024 12:54-0400 Diastolic blood pressure 58 mm[Hg] MD Shantel Steven Work Phone: [facility] 04-29-2024 12:54-0400 Heart rate 54 /min MD Shantel Steven Work Phone: [facility] 04-29-2024 12:54-0400 Systolic blood pressure 90 mm[Hg] MD Shantel Steven Work Phone: [facility] 04-03-2024 11:29-0400 Body height 165.1 cm MD Shantel Steven Work Phone: [facility] 04-03-2024 11:29-0400 Body mass index (BMI) [Ratio] 43.7 kg/m2 MD Shantel Steven Work Phone: [facility] 04-03-2024 11:29-0400 Body weight 119.29 kg MD Shantel Steven Work Phone: [facility] 04-03-2024 11:29-0400 Diastolic blood pressure 71 mm[Hg] MD Shantel Steven Work Phone: [facility] 04-03-2024 11:29-0400 Heart rate 56 /min MD Shantel Steven Work Phone: [facility] 04-03-2024 11:29-0400 Systolic blood pressure 116 mm[Hg] MD Shantel Steven Work Phone: [facility] 03-25-2024 15:15-0400 Body height 165.1 cm MD Shantel Steven Work Phone: [facility] 03-25-2024 15:15-0400 Body mass index (BMI) [Ratio] 43.9 kg/m2 MD Shantel Steven Work Phone: [facility] 03-25-2024 15:15-0400 Body weight 119.74 kg MD Shantel Steven Work Phone: [facility] 03-25-2024 15:15-0400 Diastolic blood pressure 87 mm[Hg] MD Shantel Steven Work Phone: [facility] 03-25-2024 15:15-0400 Heart rate 66 /min MD Shantel Steven Work Phone: [facility] 03-25-2024 15:15-0400 Systolic blood pressure 125 mm[Hg] MD Shantel Steven Work Phone: [facility] 02-15-2024 14:18-0400 Body height 165.1 cm [facility] 02-15-2024 14:18-0400 Body mass index (BMI) [Ratio] 38.6 kg/m2 [facility] 02-15-2024 14:18-0400 Body weight 105.23 kg [facility] 02-15-2024 14:18-0400 Diastolic blood pressure 66 mm[Hg] [facility] 02-15-2024 14:18-0400 Heart rate 55 /min [facility] 02-15-2024 14:18-0400 Systolic blood pressure 114 mm[Hg] [facility] 01-18-2024 10:23-0500 Body height 165.1 cm [facility] 01-18-2024 10:23-0500 Body mass index (BMI) [Ratio] 43.2 kg/m2 [facility] 01-18-2024 10:23-0500 Body weight 117.93 kg [facility] 01-18-2024 10:23-0500 Diastolic blood pressure 70 mm[Hg] [facility] 01-18-2024 10:23-0500 Heart rate 98 /min [facility] 01-18-2024 10:23-0500 SaO2% (BldA) [Mass fraction] 65 % [facility] 01-18-2024 10:23-0500 Systolic blood pressure 110 mm[Hg] [facility] 10-23-2023 16:00-0500 Body height 165.1 cm Aziz Bakhous Other [facility] [employer] Other 10-23-2023 16:00-0500 Body mass index (BMI) [Ratio] 44.63 kg/m2 Aziz Bakhous Other [facility] Other 10-23-2023 16:00-0500 Body temperature 96.8 [degF] Aziz Bakhous Other [facility] Other 10-23-2023 16:00-0500 Body weight 121.66 kg Aziz Bakhous Other [facility] Other 10-23-2023 16:00-0500 Diastolic blood pressure 60 mm[Hg] Aziz Bakhous Other [facility] Other 10-23-2023 16:00-0500 Respiratory rate 18 /min Aziz Bakhous Other [facility] Other 10-23-2023 16:00-0500 SaO2% (BldA) [Mass fraction] 99 % Aziz Bakhous Other [facility] Other 10-23-2023 16:00-0500 Systolic blood pressure 124 mm[Hg] Aziz Bakhous Other [facility] Other 10-18-2023 13:45-0500 Body height 165.1 cm Shantel Steven Other [employer] Other 10-18-2023 13:45-0500 Body mass index (BMI) [Ratio] 44.86 kg/m2 Shantel Steven Other [facility] Other 10-18-2023 13:45-0500 Body temperature 97.3 [degF] Shantel Steven Other [facility] Other 10-18-2023 13:45-0500 Body weight 122.29 kg Shantel Steven Other [facility] Other 10-18-2023 13:45-0500 Diastolic blood pressure 84 mm[Hg] Shantel Steven Other [facility] Other 10-18-2023 13:45-0500 SaO2% (BldA) [Mass fraction] 97 % Shantel Steven Other [facility] Other 10-18-2023 13:45-0500 Systolic blood pressure 132 mm[Hg] Shantel Steven Other [facility] Other 09-04-2023 14:00-0400 Body height 165.1 cm Shantel Steven Other [facility] Other 09-04-2023 14:00-0400 Body mass index (BMI) [Ratio] 43.06 kg/m2 Shantel Steven Other [facility] Other 09-04-2023 14:00-0400 Body weight 117.39 kg Shantel Steven Other [facility] Other 09-04-2023 14:00-0400 Diastolic blood pressure 69 mm[Hg] Shantel Steven Other [facility] Other 09-04-2023 14:00-0400 Systolic blood pressure 127 mm[Hg] Shantel Steven Other [facility] Other 07-17-2023 10:00-0400 Body height 165.1 cm Shantel Steven Other [facility] Other 07-17-2023 10:00-0400 Body mass index (BMI) [Ratio] 43.03 kg/m2 Shantel Steven Other [facility] Other 07-17-2023 10:00-0400 Body weight 117.3 kg Shantel Steven Other [facility] Other 07-17-2023 10:00-0400 Diastolic blood pressure 76 mm[Hg] Shantel Steven Other [facility] Other 07-17-2023 10:00-0400 Systolic blood pressure 164 mm[Hg] Shantel Steven Other [facility] Other 04-30-2023 14:30-0400 Body height 165.1 cm Shantel Steven Other [facility] Other 04-30-2023 14:30-0400 Body mass index (BMI) [Ratio] 43.43 kg/m2 Shantel Steven Other [facility] Other 04-30-2023 14:30-0400 Body weight 118.39 kg Shantel Steven Other [facility] Other 04-30-2023 14:30-0400 Diastolic blood pressure 75 mm[Hg] Shantel Steven Other [facility] Other 04-30-2023 14:30-0400 Systolic blood pressure 135 mm[Hg] Shantel Steven Other [facility] Other 03-09-2023 12:15-0400 Body height 165.1 cm Shantel Steven Other [facility] Other 03-09-2023 12:15-0400 Body mass index (BMI) [Ratio] 43.59 kg/m2 Shantel Steven Other [facility] Other 03-09-2023 12:15-0400 Body weight 118.84 kg Shantel Steven Other [facility] Other 03-09-2023 12:15-0400 Diastolic blood pressure 82 mm[Hg] Shantel Steven Other [facility] Other 03-09-2023 12:15-0400 SaO2% (BldA) [Mass fraction] 97 % Shantel Steven Other [facility] Other 03-09-2023 12:15-0400 Systolic blood pressure 130 mm[Hg] Shantel Steven Other [facility] Other 02-20-2023 10:00-0400 Body height 165.1 cm Shantel Steven Other [facility] Other 02-20-2023 10:00-0400 Body mass index (BMI) [Ratio] 41.93 kg/m2 Shantel Steven Other [facility] Other 02-20-2023 10:00-0400 Body weight 114.31 kg Sahntel Steven Other [facility] Other 02-20-2023 10:00-0400 Diastolic blood pressure 84 mm[Hg] Shantel Steven Other [facility] Other 02-20-2023 10:00-0400 Systolic blood pressure 132 mm[Hg] Shantel Steven Other [facility] Other 08-04-2022 13:33-0400 Blood Pressure Location [facility] 08-04-2022 13:33-0400 Diastolic blood pressure 88 mm[Hg] [facility] 08-04-2022 13:33-0400 Heart rate 76 /min [facility] 08-04-2022 13:33-0400 Respiratory rate 16 /min [facility] 08-04-2022 13:33-0400 Systolic blood pressure 130 mm[Hg] [facility] 08-25-2021 14:30-0400 Body height 165.1 cm Akbar Cui II Other [facility] Other 08-25-2021 14:30-0400 Body mass index (BMI) [Ratio] 43.26 kg/m2 Akbar Cui II Other [facility] Other 08-25-2021 14:30-0400 Body weight 117.94 kg Akbar Cui II Other [facility] Other Encounters Encounter Date Encounter Type Care Provider Facility Start: 07-07-2024 End: 07-07-2024 ambulatory MD Shantel Steven Work Phone: [facility] Work Phone: Start: 07-07-2024 End: 07-07-2024 Patient encounter procedure MD Shantel Steven Work Phone: [facility] Work Phone: Start: 06-25-2024 ambulatory MD Shantel gray Work Phone: [facility] Work Phone: Start: 06-25-2024 Non-patient / Non-visit MD Alessia Steven Work Phone: [facility] Work Phone: Start: 06-24-2024 Non-patient / Non-visit MD Alessia Steven Work Phone: [facility] Work Phone: Start: 06-18-2024 End: 06-18-2024 ambulatory [facility] Start: 06-16-2024 End: 06-16-2024 ambulatory MD Shantel Steven Work Phone: [facility] Work Phone: Start: 06-16-2024 End: 06-16-2024 Patient encounter procedure MD Shantel Steven Work Phone: [facility] Work Phone: Start: 06-16-2024 End: 06-16-2024 MD Shantel Steven Work Phone: [facility] Work Phone: Start: 06-10-2024 Non-patient / Non-visit MD Alessia Steven Work Phone: [facility] Work Phone: Start: 06-10-2024 MD Shantel painting Work Phone: [facility] Work Phone: Start: 06-09-2024 Non-patient / Non-visit MD Alessia Steven Work Phone: [facility] Work Phone: Start: 06-09-2024 MD Shantel painting Work Phone: [facility] Work Phone: Start: 06-05-2024 End: 06-05-2024 ambulatory MD Shantel Steven Work Phone: [facility] Work Phone: Start: 06-05-2024 End: 06-05-2024 Patient encounter procedure MD Shantel Steven Work Phone: [facility] Work Phone: Start: 06-05-2024 End: 06-05-2024 MD Shantel Steven Work Phone: [facility] Work Phone: Start: 06-01-2024 Non-patient / Non-visit MD Alessia Steven Work Phone: [facility] Work Phone: Start: 06-01-2024 MD Shantel painting Work Phone: [facility] Work Phone: Start: 05-26-2024 Non-patient / Non-visit MD Alessia Steven Work Phone: [facility] Work Phone: Start: 05-26-2024 MD Shantel painting Work Phone: [facility] Work Phone: Start: 05-22-2024 End: 05-22-2024 Emergency department patient visit MD Shantel Steven Work Phone: [facility] Work Phone: Start: 05-22-2024 End: 05-22-2024 MD Shantel Steven Work Phone: [facility] Work Phone: Start: 05-20-2024 Non-patient / Non-visit MD Alessia Steven Work Phone: [facility] Work Phone: Start: 05-20-2024 MD Shantel painting Work Phone: [facility] Work Phone: Start: 05-20-2024 End: 05-20-2024 ambulatory [facility] Start: 05-19-2024 End: 05-19-2024 ambulatory MD Shantel Steven Work Phone: [facility] Work Phone: Start: 05-19-2024 End: 05-19-2024 Patient encounter procedure MD Shantel Steven Work Phone: [facility] Work Phone: Start: 05-19-2024 End: 05-19-2024 MD Shantel Steven Work Phone: [facility] Work Phone: Start: 05-07-2024 End: 05-07-2024 ambulatory MD Shantel Steven Work Phone: [facility] Work Phone: Start: 05-07-2024 End: 05-07-2024 Patient encounter procedure MD Shantel Steven Work Phone: [facility] Work Phone: Start: 05-07-2024 End: 05-07-2024 MD Shantel Steven Work Phone: [facility] Work Phone: Start: 05-06-2024 Non-patient / Non-visit MD Alessia Steven Work Phone: [facility] Work Phone: Start: 05-06-2024 MD Shantel painting Work Phone: [facility] Work Phone: Start: 05-05-2024 Non-patient / Non-visit MD Alessia Steven Work Phone: [facility] Work Phone: Start: 05-05-2024 MD Shantel Bajwa n Work Phone: [facility] Work Phone: Start: 05-04-2024 Non-patient / Non-visit MD Alessia Steven Work Phone: [facility] Work Phone: Start: 05-04-2024 MD Shantel Bajwa n Work Phone: [facility] Work Phone: Start: 05-02-2024 Non-patient / Non-visit MD Alessia Steven Work Phone: [facility] Work Phone: Start: 05-02-2024 MD Shantel Bajwa n Work Phone: [facility] Work Phone: Start: 05-01-2024 Non-patient / Non-visit MD Alessia Steven Work Phone: [facility] Work Phone: Start: 05-01-2024 MD Shantel Bajwa n Work Phone: [facility] Work Phone: Start: 04-30-2024 Non-patient / Non-visit MD Alessia Steven Work Phone: [facility] Work Phone: Start: 04-30-2024 MD Shantel painting Work Phone: [facility] Work Phone: Start: 04-29-2024 End: 04-29-2024 Patient encounter procedure MD Shantel Steven Work Phone: [facility] Work Phone: Start: 04-29-2024 End: 04-29-2024 MD Shantel Steven Work Phone: [facility] Work Phone: Start: 04-03-2024 End: 04-03-2024 ambulatory MD Shantel Steven Work Phone: [facility] Work Phone: Start: 04-03-2024 End: 04-03-2024 Patient encounter procedure MD Shantel Steven Work Phone: [facility] Work Phone: Start: 04-03-2024 End: 04-03-2024 MD Shantel Steven Work Phone: [facility] Work Phone: Start: 04-01-2024 Non-patient / Non-visit MD Alessia Steven Work Phone: [facility] Work Phone: Start: 04-01-2024 MD Shantel painting Work Phone: [facility] Work Phone: Start: 03-31-2024 Non-patient / Non-visit MD Alessia Steven Work Phone: [facility] Work Phone: Start: 03-31-2024 MD Shantel painting Work Phone: [facility] Work Phone: Start: 03-28-2024 Non-patient / Non-visit MD Alessia Steven Work Phone: [facility] Work Phone: Start: 03-28-2024 MD Shantel painting Work Phone: [facility] Work Phone: Start: 03-27-2024 Non-patient / Non-visit MD Alessia Steven Work Phone: [facility] Work Phone: Start: 03-27-2024 MD Shantel painting Work Phone: [facility] Work Phone: Start: 03-26-2024 Non-patient / Non-visit MD Alessia Steven Work Phone: [facility] Work Phone: Start: 03-26-2024 MD Shantel painting Work Phone: [facility] Work Phone: Start: 03-25-2024 End: 03-25-2024 Patient encounter procedure MD Shantel Steven Work Phone: [facility] Work Phone: Start: 03-25-2024 End: 03-25-2024 MD Shantel Steven Work Phone: [facility] Work Phone: Start: 03-13-2024 End: 03-13-2024 Patient encounter procedure MD Shantel Steven Work Phone: [facility] [address] Work Phone: Start: 03-13-2024 End: 03-13-2024 ambulatory MD Shantel Steven Work Phone: [facility] Work Phone: Start: 03-07-2024 End: 03-07-2024 ambulatory [facility] Start: 02-19-2024 ambulatory Facility:[facility] Start: 02-15-2024 End: 02-15-[address] [facility] Work Phone: Start: 02-15-2024 End: 02-15-2024 Patient encounter procedure [facility] Work Phone: Start: 01-29-2024 Non-patient / Non-visit [facility] Work Phone: Start: 01-24-2024 Non-patient / Non-visit [facility] Work Phone: Start: 01-22-2024 Non-patient / Non-visit [facility] Work Phone: Start: 01-18-2024 End: 01-18-2024 Patient encounter procedure [facility] Work Phone: Start: 01-15-2024 Non-patient / Non-visit [facility] Work Phone: Start: 01-04-2024 Non-patient / Non-visit [facility] Work Phone: Start: 12-18-2023 End: 12-18-2023 ambulatory Shantel Steven Other [facility] Other Start: 12-18-2023 [address]phone [address]el Steven [facility] Start: 11-19-2023 End: 11-19-2023 ambulatory Shantel Steven Other [employer] Other Start: 11-19-2023 Telephone [address]antel Steven [facility] Start: 10-23-2023 End: 10-23-2023 ambulatory Jaleesa Vanessa Other [employer] Other Start: 10-23-2023 Office outpatient ne w 30 minutes Néstorghassan Nhunglovebuffy [facility] Start: 10-22-2023 End: 10-22-2023 ambulatory Sahntel Steven Other [facility] Other Start: 10-22-2023 Telephone encounter Shantel Steven [facility] Start: 10-18-2023 End: 10-18-2023 ambulatory Shantel Steven Other [employer] Other Start: 10-18-2023 Office outpatient vi sit [address] [facility] Start: 09-07-2023 End: 09-07-2023 ambulatory Shantel Steven Other [employer] Other Start: 09-07-2023 Telephone encounter Shantel Steven [facility] Start: 09-04-2023 End: 09-04-2023 ambulatory Shantel Tenisha Other [employer] Other Start: 09-04-2023 Office outpatient vi sit [address] [facility] Start: 08-23-2023 End: 08-23-2023 ambulatory Shantel Tenisha Other [employer] Other Start: 08-23-2023 Telephone encounter Shantel Steven [facility] Start: 08-17-2023 End: 08-17-2023 ambulatory [facility] Start: 07-23-2023 Telephone encounter Shantel Steven [facility] Start: 07-23-2023 End: 07-23-[address] [facility] Other Start: 07-17-2023 End: 07-17-2023 ambulatory Shantel Steven Other [employer] Other Start: 07-17-2023 Office outpatient vi sit [address] [facility] Start: 05-30-2023 End: 05-30-2023 ambulatory Shantel Steven Other [employer] Other Start: 05-30-2023 Telephone encounter Shantel Steven [facility] Start: 05-22-2023 End: 05-22-2023 ambulatory Shantel Steven Other [facility] Other Start: 05-22-2023 Telephone encounter Shantel Steven [facility] Start: 05-16-2023 End: 05-16-2023 ambulatory Shantel Steven Other [employer] Other Start: 05-16-2023 Telephone encounter Shantel Steven [facility] Start: 05-07-2023 End: 05-07-2023 ambulatory Shantel Steven Other [employer] Other Start: 05-07-2023 Telephone encounter Shantel Steven [facility] Start: 04-30-2023 End: 04-30-2023 ambulatory Shantel Steven Other [employer] Other Start: 04-30-2023 Office outpatient vi sit [address] [facility] Start: 04-25-2023 End: 04-25-2023 ambulatory Shantel Steven Other [employer] Other Start: 04-25-2023 Telephone encounter Shantel Steven [facility] Start: 04-12-2023 End: 04-12-2023 ambulatory Shantel Steven Other [employer] Other Start: 04-12-2023 Telephone encounter Shantel Steven [facility] Start: 03-09-2023 End: 03-09-2023 ambulatory Shantel Steven Other [employer] Other Start: 03-09-2023 Office outpatient vi sit [address] [facility] Start: 03-07-2023 End: 03-07-2023 ambulatory Shantel Steven Other [employer] Other Start: 03-07-2023 Telephone encounter Shantel Steven [facility] Start: 03-06-2023 End: 03-06-[address] SHANTEL STEVEN Facility:[facility] Start: 03-05-2023 End: 03-05-2023 ambulatory Shantel Steven Other [facility] Other Start: 03-05-2023 Telephone encounter Shantel Steven [facility] Start: 02-26-2023 End: 02-26-2023 ambulatory Shantel Steven Other [employer] Other Start: 02-26-2023 Telephone encounter Shantel Steven [facility] Start: 02-24-2023 End: 02-24-[address] SHANTEL STEVEN Facility:[facility] Start: 02-23-2023 End: 02-23-2023 ambulatory Shantel Steven Other [facility] Other Start: 02-23-2023 Telephone encounter Shantel Steven [facility] Start: 02-20-2023 End: 02-20-2023 ambulatory Shantel Steven Other [employer] Other Start: 02-20-2023 Transitional care luz cabral [facility] 14 day discharge Shantel Steven [facility] Start: 02-16-2023 End: 02-16-2023 ambulatory Shantel Steven Other [employer] Other Start: 02-16-2023 Telephone encounter Shantel Steven [facility] Start: 02-13-2023 End: 02-14-[address] SHANTEL STEVEN Facility:[facility] Start: 02-02-2023 End: 02-02-2023 ambulatory Shantel Steven Other [employer] Other Start: 02-02-2023 Telephone encounter Shantel Steven [facility] Start: 01-16-2023 End: 01-17-[address] DOCTOR CARMONA Facility:[facility] Start: 01-05-2023 End: 01-05-2023 ambulatory BIN ROJAS Facility:[facility] Start: 01-01-2023 End: 01-02-2023 ambulatory ANALISA BRYANT Facility:[facility] Start: 11-29-2022 End: 11-29-2022 ambulatory Shantel Steven Other [employer] Other Start: 11-29-2022 Telephone encounter Shantel Steven [facility] Start: 11-27-2022 End: 11-27-2022 ambulatory Shantel Steven Other [employer] Other Start: 11-27-2022 Telephone encounter Shantel Steven [facility] Start: 11-24-2022 End: 11-24-2022 ambulatory Shantel Steven Other [employer] Other Start: 11-24-2022 Telephone encounter Shantel Steven [facility] Start: 11-06-2022 ambulatory YAMEL MCCRACKEN Facility :H1 Start: 09-15-2022 End: 09-16-[address] SHANTEL STEVEN Facility:[facility]1 Start: 08-04-2022 End: 08-04-2022 Patient encounter procedure Bin SORENSON General Surgery Niljorden/Adenike Becker Start: 05-02-2022 End: 05-02-[address] SHANTEL STEVEN Facility:[facility]1 Start: 08-25-2021 Office outpatient ne w 45 minutes Akbar Cui II [facility] Start: 08-09-2017 End: 08-12-2017 Ambulatory PROVIDER UNKNOWN Facility:[facility] Procedures Date Procedure Procedure Detail Performing [...] Activity Detail Author Start: 06-25-2024 Patient referral [facility] Work Phone: Start: 06-16-2024 Patient referral [facility] Work Phone: Start: 05-07-2024 Patient referral [facility] Work Phone: Start: 05-04-2024 Blood Culture 1 Blood Culture 1 [facility] Start: 02-15-2024 Patient referral [facility] Work Phone: Comprehensive metabo lic 1999 panel - Serum or Plasma [facility] CT Abdomen and Pelvi s WO contrast [facility] Microalbumin [Mass/v olume] in Urine [facility] Patient referral [facility] Work Phone: Renal function 1999 panel - Serum or Plasma [facility] Immunizations Immunization Date Immunization Notes Care Provider Fa cility 01-18-2024 Pneumococcal Conjugate Vaccine, 20 valent [facility] 09-04-2023 influenza, high dose seasonal, preservative-free Shantel Steven Other [facility] [employer] Other 09-04-2023 influenza virus vaccine, unspecified formulation [facility] 02-04-2021 COVID-19 mRNA, Comirnaty (Pfizer) [facility] 01-21-2021 COVID-19 mRNA, Comirnaty (Pfizer) [facility] 10-09-2018 influenza virus vaccine, split virus (incl. purified surface antigen) Shantel Steven Other [facility] [employer] Other 10-09-2018 influenza virus vaccine, unspecified formulation [facility] NEGATED: Highlighted row has not occurred!08-21-2019 influenza virus vaccine, split virus (incl. purified surface antigen) Shantel Steven Other [facility] [employer] Other Payers Date Payer Category Payer Self-pay [id number] 1958 Medicare [id number]. [id number] 1958 Self-pay [id number] 1945 Unknown [id number] 2.16.84 [id number] 1945 Unknown [id number] 2.16.84 [id number] 1945 Unknown [id number] 2.16.84 [id number] 1946 Unknown [id number] 2.16.84 [id number] 1946 Unknown [id number] 2.16.84 [id number] 1946 Unknown [id number] 2.16.84 [id number] 1946 Unknown [id number] 2.16.84 [id number] 1946 Unknown [id number] 2.16.84 [id number] 1946 Unknown [id number] 2.16.84 [id number] Unknown Unknown [id number] 2.16.8 [id number] Unknown [id number] 2.16.8 [id number] Social History Date Type Detail Facility Sex Assigned At [facility] Other Start: 08-04-2022 End: 06-05-2024 Tobacco smoking status Ex-smoker (finding) General Surgery [facility] Tobacco smoking status Never Gener al Surgery [facility] Start: 1945 Sex Assigned At Female F [facility] Medical Equipment Procedure Code Equipment Code Equipment Origin al Text Equipment Identifier Dates Blood Sugar Diagnostic (True Metrix Glucose Test Strip) strip Start: 03-31-2024 Pen Needle, Diab etic (Comfort Ez Pen [place]) 33 gauge x 5/32 needle Start: 03-25-2024 Blood Sugar Diagnostic (True Metrix Glucose Test Strip) strip Start: 03-31-2024 End: 03-31-2024 Blood Sugar Diagnostic (True Metrix Glucose Test Strip) strip Start: 03-31-2024 Pen Needle, Diab etic (Comfort Ez Pen [place]) 33 gauge x 5/32 needle Start: 03-25-2024 Blood Sugar Diagnostic (True Metrix Glucose Test Strip) strip Start: 03-31-2024 End: 03-31-2024 Blood Sugar Diagnostic (True Metrix Glucose Test Strip) strip Start: 03-31-2024 Pen Needle, Diab etic (Comfort Ez Pen [place]) 33 gauge x 5/32 needle Start: 03-25-2024 Blood Sugar Diagnostic (True Metrix Glucose Test Strip) strip Start: 03-31-2024 End: 03-31-2024 Blood Sugar Diagnostic (True Metrix Glucose Test Strip) strip Start: 03-31-2024 Pen Needle, Diab etic (Comfort Ez Pen [place]) 33 gauge x 5/32 needle Start: 03-25-2024 Blood Sugar Diagnostic (True Metrix Glucose Test Strip) strip Start: 03-31-2024 End: 03-31-2024 Blood Sugar Diagnostic (True Metrix Glucose Test Strip) strip Start: 03-31-2024 Pen Needle, Diab etic (Comfort Ez Pen [place]) 33 gauge x 5/32 needle Start: 03-25-2024 Blood Sugar Diagnostic (True Metrix Glucose Test Strip) strip Start: 03-31-2024 End: 03-31-2024 Blood Sugar Diagnostic (True Metrix Glucose Test Strip) strip Start: 03-31-2024 Pen Needle, Diab etic (Comfort Ez Pen [place]) 33 gauge x 5/32 needle Start: 03-25-2024 Blood Sugar Diagnostic (True Metrix Glucose Test Strip) strip Start: 03-31-2024 End: 03-31-2024 Blood Sugar Diagnostic (True Metrix Glucose Test Strip) strip Start: 03-31-2024 Pen Needle, Diab etic (Comfort Ez Pen [place]) 33 gauge x 5/32 needle Start: 03-25-2024 Blood Sugar Diagnostic (True Metrix Glucose Test Strip) strip Start: 03-31-2024 End: 03-31-2024 Functional Status Date Assessment Result Facility 08-04-2022 Functional Status N/A General Garcia vito [facility] Clinical Notes 08-25-2021 to 06-18-2024 Note Date & Type Note Facility 06-18-2024 Note [facility] Subjective Joe Bela Call is a 78 y.o. year old female patient being seen for 1 mo follow up acute on chronic diastolic heart failure, CAD, and CARMELO. She's presented to [facility] ED several times over the past [...] Hordeolum externum (stye) Immunization due Lactose intolerance [facility] (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 insulin (CMS/HCC) Lumbar degenerative [...] prior cardiac catheterizations. She has history of NJ in the past and underwent balloon angioplasty (many years ago, prior to the stent era). 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 In December 2022 she was admitted to the [facility] with decompensated diastolic heart failure, she was treated with diuretic therapy. In February 2023 she was admitted to [facility] with dehydration secondary to acute gastroenteritis. She also had acute kidney injury in that setting. She has history of breast cancer more than 25 years ago s/p mastectomy, chemo and radiation therapy. She has lymphedema in the left arm. In the past she saw a skin piler for bleeding behind the eye . she [...] April 2024 she was admitted to the [facility] with increasing weakness and altered mental status. She also had acute renal insufficiency. She had UTI secondary to E. coli. She was admitted again to the [facility] on 06/09/2020 for with acute on chronic [...] She is well-develo (more content not included)... [facility] 05-20-2024 Note BMP today to assess renal function and electrolytes [facility] 05-20-2024 Note Heart failure is unc hanged. NYHA Class II. Continue current treatment regimen. Dietary sodium restriction. Encouraged daily monitoring of the patient's weight. Continue current medications. Heart failure will be reassessed in 1 month. BMP to assess renal function and electrolytes today to see if can uptitrate GDMT- in light Lasix, lisinopril and aldactone on hold from recent hospitalization [facility] 05-20-2024 Note Coronary artery dise ase is unchanged. Continue current medications. Continue GDMT- lipitor, metoprolol continue risk factor modifications- heart healthy diet, regular exercise as tolerated and continue all medications. [facility] 05-20-2024 Note Lipid abnormalities are unchanged. Pharmacotherapy as ordered. Continue lipitor [facility] 05-20-2024 Note [facility] CARDIOLOGY PROGR ESS NOTE HPI: Joe Call is a 78 y.o. female here for hospital F/U HPI: Patient here for follow up [facility] for renal failure. She was also discharged back in March 2024 for CHF. Lisinopril, spironolactone, and furosemide were stopped during one of the admissions. She denies chest pain, SOB, and LE edema. Denies lightheadedness, syncope, and bleeding on Xarelto. Feels much better s/p hospital stay. Palpitations are no more than usual for her. She will be seeing her cane pusher (Dr. Rapp) on 06/05/2024. Currently weight is [...] pounds per week. Previous HPI per Dr Kaplan HPI Joe is seen in follow up [...] prior cardiac catheterizations. She has history of NJ in the past and underwent balloon angioplasty (many years ago, prior to the stent era). 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 In December 2022 she was admitted to the [facility] with decompensated diastolic heart failure, she was treated with diuretic therapy. In February 2023 she was admitted to [facility] with dehydration secondary to acute gastroenteritis. She also had acute kidney injury in that setting. She has history of breast cancer more than 25 years ago s/p mastectomy, chemo and radiation therapy. She has lymphedema in the left arm. In the past she saw a skin piler for bleeding behind the eye . she [...] 2.3 m??? Allergie (more content not included)... [facility] 05-20-2024 Note Patient here for [facility] for renal failure. She was also discharged back in March 2024 for CHF. Lisinopril, spironolactone, and furosemide were stopped during one of the admissions. She denies chest pain, SOB, and LE edema. Denies lightheadedness, syncope, and bleeding on Xarelto. Feels much better s/p hospital stay. Palpitations are no more than usual for her. She will be seeing her cane pusher (Dr. Rapp) on 06/05/2024. Review of Systems Cardiovascular: Positive for palpitations. Musculoskeletal: Positive for muscle weakness. All other systems reviewed and are negative. [facility] 03-07-2024 Note [facility] Subjective Joe Call is [...] prior cardiac catheterizations. She has history of NJ in the past and underwent balloon angioplasty (many years ago, prior to the stent era). 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 In December 2022 she was admitted to the [facility] with decompensated diastolic heart failure, she was treated with diuretic therapy. In February 2023 she was admitted to [facility] with dehydration secondary to acute gastroenteritis. She also had acute kidney injury in that setting. She has history of breast cancer more than 25 years ago s/p mastectomy, chemo and radiation therapy. She has lymphedema in the left arm. In the past she saw a skin piler for bleeding behind the eye . she [...] TIMES DAILY NEEDED (more content not included)... [facility] 02-15-2024 Hospital Discharge instructions Ambulatory OrdersReferral to Urology Time Frame: 02/15/24, Location: None [facility] Work Phone: 11-19-2023 Evaluation note Encounter Date Diagnosis Assessment Notes Nov, Lumbar degenerative disc disease (ICD-10 - M51.36) [facility] 12-12-2023 Evaluation note* Encounter Date Diagnosis Assessment Notes [...] will check vitamin B12 level next visit [facility] 12-11-2023 Evaluation note* Encounter Date Diagnosis Assessment Notes Treatment Notes Treatment Clinical Notes Oct, Lumbar degenerative disc disease (ICD-10 - M51.36) [facility] Other 12-07-2023 Evaluation note* Encounter Date Diagnosis Assessment Notes Treatment Notes Treatment Clinical Notes Oct, Bronchitis (ICD-10 - J40) Finish meds. No acute need for antibiotic at this time Oct, Diabetes mellitus with chronic kidney disease (ICD-10 - E11.22) Due for labs, followup w Dr. Mcconnell Oct, Lumbar degenerative disc disease (ICD-10 - M51.36) Pt will contact neurosurgery. [facility] 10-27-2023 Evaluation note* Encounter Date Diagnosis Assessment Notes Treatment Notes Treatment Clinical Notes Aug, Chronic kidney disease, stage 4 (severe) (ICD-10 - N18.4) [facility] 10-24-2023 Evaluation note* Encounter Date Diagnosis [...] (ICD-10 - M51.36) Pt requests referral to [facility]. Reviewed OARRS report. Aug, Stress incontinence of urine (ICD-10 - N39.3) R/o infection. Discussed could be related to her diabetes med as well. [facility] Other 10-12-2023 Evaluation note* Encounter Date Diagnosis Assessment Notes Treatment Notes Treatment Clinical Notes Aug, Lumbar degenerative disc disease (ICD-10 - M51.36) [facility] Other 10-06-2023 NoteCardiology Clinic Note Subjective Joe [...] In February 2023 she was admitted to [facility] with dehydration secondary to acute gastroenteritis. She also had acute kidney injury in that setting. She has history of breast cancer more than 25 years ago s/p mastectomy, chemo and radiation therapy. She has lymphedema in the left arm. She has been doing well. No chest pain. No dyspnea. No palpitations. She reports that she is seeing a skin piler for bleeding behind the eye . She has had a lot of balance issues, uses a walker to ambulate and has had about 10 falls in the past year. Update: 07/23/2023 She was admitted to [facility] 07/08-07/10/2023 for decompensated HFpEF She was [...] with questions Was prescribed Farxiga by her housekeeping supervisor but did not start after reading about [...] DAYS, Disp: , Rfl (more content not included)...[facility]10-06-2023 NotePatient here for 1 mo follow up CAD, chronic diastolic heart failure, and PAF. Follow up labs have not been completed yet. Her housekeeping supervisor recently started her on Farxiga but she [...] light-headedness. All other systems reviewed and are negative.[facility] Encounter Date Diagnosis Assessment Notes Treatment Notes Treatment Clinical Notes Jul, Lumbar degenerative disc disease (ICD-10 - M51.36) [facility] 09-11-2023 NotePatient here for follow up [facility] for CHF. She was seen as [...] weakness. All other systems reviewed and are negative.[facility] 07-23-2023 NoteCardiology Clinic Note Subjective Joe [...] In February 2023 she was admitted to [facility] with dehydration secondary to acute gastroenteritis. She also had acute kidney injury in that setting. She has history of breast cancer more than 25 years ago s/p mastectomy, chemo and radiation therapy. She has lymphedema in the left arm. She has been doing well. No chest pain. No dyspnea. No palpitations. She reports that she is seeing a skin piler for bleeding behind the eye . She has had a lot of balance issues, uses a walker to ambulate and has had about 10 falls in the past year. Update: 07/23/2023 She was admitted to [facility] 07/08-07/10/2023 for decompensated HFpEF She was [...] time each day., Disp: (more content not included)...[facility]09-05-2023 Evaluation note* Encounter Date Diagnosis Assessment [...] refill. Oarrs reviewed. No med changes needed. [facility] 07-05-2023 Evaluation note* Encounter Date Diagnosis Assessment Notes Treatment Notes Treatment Clinical Notes May, C. difficile colitis (ICD-10 - A04.72) [facility] Other 06-19-2023 Evaluation note* Encounter Date Diagnosis Assessment Notes Treatment Notes Treatment Clinical Notes Apr, Skin candidiasis (ICD-10 - B37.2) Discussed this is related to her hyperglycemia. Will treat w nystatin, but needs improvement in diet and glucose readings. Apr, Type 2 diabetes mellitus with hyperglycemia, unspecified whether snf insulin use (ICD-10 - E11.65) Pt agrees to see Dr Mcconnell again. Recently sent to ER for glucose of 608. Apr, Tremor of both hands (ICD-10 - R25.1) Referral to Dr. Lopez Apr, Memory changes (ICD- 10 - R41.3) Referral to Dr. Lopez Apr, Gastroesophageal reflux disease without esophagitis (ICD-10 - K21.9) Improved on carafate w PPI. [facility] Other 06-01-2023 Evaluation note* Encounter Date Diagnosis Assessment Notes Treatment Notes Treatment Clinical Notes Apr, Gastroesophageal ref lux disease without esophagitis (ICD-10 - K21.9) [facility] Other 04-28-2023 Evaluation note* Encounter Date Diagnosis [...] get lab ordered on 02/20 today Feb, [facility] (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 insulin (ICD-10 - Z79.4) [facility] Other 04-26-2023 Evaluation note* Encounter Date Diagnosis Assessment Notes Treatment Notes Treatment Clinical Notes Feb, C. difficile colitis (ICD-10 - A04.72) [facility] Other 04-17-2023 Evaluation note* Encounter Date Diagnosis Assessment Notes Treatment Notes Treatment Clinical Notes 17 Feb, 2023 Gastroesophageal ref lux disease without esophagitis (ICD-10 - K21.9) [facility] Other 04-14-2023 Evaluation note* Encounter Date Diagnosis Assessment Notes Treatment Notes Treatment Clinical Notes 14 Feb, 2023 Chronic diarrhea (ICD-10 - K52.9) [facility] Other 04-11-2023 Evaluation note* Encounter Date Diagnosis [...] it really overall has not been helpful. [facility] Other 01-13-2023 Evaluation note* Encounter Date Diagnosis Assessment Notes Treatment Notes Treatment Clinical Notes Nov, Type 2 diabetes mellitus with hyperglycemia, unspecified whether snf insulin use (ICD-10 - E11.65) [facility] Other 10-14-2021 Evaluation note* Encounter Date Diagnosis [...] training 6. Follow up in 3 months. [facility] Other Evaluation + Plan note No data available for this section General Surgery [facility] Evaluation noteNo InformationNort [employer] Other Evaluation noteNort [employer] Other Evaluation noteNort [employer] Other Evaluation note* Diagnosis Onset Date Resolution Status Chalazion of right eye acute Immunization due acute Urinary incontinence acute [facility] Work Phone: Evaluation note* Diagnosis Onset Date Resolution Status Chalazion of right eye acute Immunization due acute Urinary incontinence acute Diabetes mellitus with hyperglycemia acute Hypertension acute Hypothyroidism acute Lumbar spondylosis acute Secondary hyperparathyroidism acute [facility] Work Phone: Evaluation note* Diagnosis Onset [...] acute Thrush of mouth and esophagus acute [facility] Work Phone: Evaluation note* Diagnosis Onset [...] IV acute UTI (urinary tract infection) acute [facility] Work Phone: Evaluation note* Diagnosis Onset [...] acute Thrush of mouth and esophagus acute [id number] acute Secondary hyperparathyroidism acute [facility] Work Phone: Evaluation note* Diagnosis Onset [...] acute Thrush of mouth and esophagus acute [id number] acute CKD (chronic kidney disease) stage 3, GFR 30-59 ml/min acute Hyperlipidemia acute [id number] acute Secondary hyperparathyroidism acute Type 2 diabetes mellitus wit h diabetic chronic kidney disease acute Tremor acute [facility] Work Phone: Evaluation note* Diagnosis Onset [...] acute Thrush of mouth and esophagus acute [id number] acute CKD (chronic kidney disease) stage 3, GFR 30-59 ml/min acute Hyperlipidemia acute [id number] acute Secondary hyperparathyroidism acute Type 2 diabetes mellitus wit h diabetic chronic kidney disease acute Acute on chronic diastolic C HF (congestive heart failure) acute [id number] acute Tremor acute [id number] acute [facility] Work Phone: Evaluation note* Diagnosis Onset Date Resolution Status Cervical disc disease acute CKD (chronic kidney [...] acute Thrush of mouth and esophagus acute [id number] acute CKD (chronic kidney disease) stage 3, GFR 30-59 ml/min acute Hyperlipidemia acute [id number] acute Secondary hyperparathyroidism acute Type 2 diabetes mellitus wit h diabetic chronic kidney disease acute Acute on chronic diastolic C HF (congestive heart failure) acute [id number] acute Tremor acute [id number] acute Mass of right axilla acute [facility] Work Phone: History general Narrative - [...] History COLONOSCOPY 04/10/2019 Hospitalization History See above [facility] Other Hisdamntheradio general Narrative - Reported* Type Description Date [...] History COLONOSCOPY 04/10/2019 Hospitalization History See above [facility] Other Ninite general Narrative - ReportedBuccaneer Other Ninite general Narrative - ReportedBuccaneer Other history general Narrative - Reported* Type Description Date [...] GERD 2022 Hospitalization History DIABETES ISSUES 2022 [facility] Other Hospital Discharge instructions No data available for this section [facility] Discharge instructionsAmbulatory Orders* Referral to Neurology Time Frame: 06/16/24, Location: None [facility] Work Phone: Hospital Discharge instructionsAmbulatory Orders* Referral to ENT Time Frame: 06/25/24, Location: None Selected [facility] Work Phone: Progress note No data available for this section General Surgery [place] Summary Purpose Family History Relationship Condition Age [...] se, stage 4 (severe) (N18.4) Referral Organization [facility] helene Referring Provider First Name Shantel Referring Provider Last Name Tenisha Referring Provider Specialty [facility] Referred Organization [facility] Nephrology Referred Provider Cherie Rapp [place] Address [address] [place],[address] Referred Provider Specialty Nephrology Referral Priority Routine General Notes Mariela Kingston 11:35:41 AM >received today, sent P2P Reason *FU 09/13 lumbar p ain Diagnosis 1 Lumbar degenerative disc disease (M51.36) Referral Organization [facility] helene Referring Provider First Name Shantel Referring Provider Last Name Tenisha Referring Provider Specialty [facility] Referred Organization [facility] Referred Provider Terell Soliz Referred Address [address], [place],[address] Referred Provider Specialty Pain Medicin e Referral Priority Routine General Notes Mariela Kingston 03:09:25 PM >received today, waiting for notes to be locked Mariela Kingston 09/06/2023 10:08:29 AM >notes locked, referral faxed Clinical Notes F: [id number] Reason Poorly controlled di abetes Diagnosis 1 Type 2 diabetes maranda itus with hyperglycemia, unspecified whether snf insulin use (E11.65) Referral Organization [facility] [employer] helene Referring Provider First Name Shantel Referring Provider Last Name Tenisha Referring Provider Specialty Family [email or web address] Referred Organization Unknown Facility Referred Provider Joshua Mcconnell Referred Provider Specialty Internal Med icine Referral Priority Routine Reason tremor and memory lo ss - family history of dementia Diagnosis 1 Tremor of both hands (R25.1) Referral Organization [facility] [employer] helene Referring Provider First Name Shantel Referring Provider Last Name Tenisha Referring Provider Specialty [facility] [email or web address] Referred Organization Unknown Facility Referred Provider Emery [...] disc disease Thrush of mouth and esophagus [id number] Secondary hyperparathyroidism Chief Complaint medication review Amb [...] disc disease Thrush of mouth and esophagus [id number] CKD (chronic kidney disease) stage 3, GFR 30-59 ml/min Hyperlipidemia [id number] Secondary hyperparathyroidism Type 2 diabetes mellitus with [...] disc disease Thrush of mouth and esophagus [id number] CKD (chronic kidney disease) stage 3, GFR 30-59 ml/min Hyperlipidemia [id number] 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 Acute on chronic diastolic CHF (congestive heart failure) [id number] Tremor [id number] Chief Complaint difficulty swallowin g Amb Documentation TBH follow up, Hypercolemia throat problem SOB RENAL CKD 4 TBH follow up 3 month f/u Reason for Visit Cervical disc diseas e CKD (chronic kidney disease), stage IV Diabetes mellitus with hyperglycemia Thrush of mouth and esophagus Abdominal swelling, generalized Acute on chronic diastolic CHF (congestive heart failure) Back pain with history of spinal surgery Cervical disc disease CKD (chronic kidney disease), stage IV UTI (urinary tract infection) Lumbar degenerative disc disease Thrush of mouth and esophagus [id number] CKD (chronic kidney disease) stage 3, GFR 30-59 ml/min Hyperlipidemia [id number] 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 Acute on chronic diastolic CHF (congestive heart failure) [id number] Tremor [id number] Mass of right axilla Additional Source Comments INFORMATION SOURCE (unrecogn ized section and content) DATE CREATED AUTHOR 05/10/2018 The [facility] DATE CREATED AUTHOR AUTHOR'S ORGANIZ ATION 03/10/2023 [facility] DATE CREATED AUTHOR AUTHOR'S ORGANIZ ATION 02/20/2024 [facility] DATE CREATED AUTHOR AUTHOR'S ORGANIZ ATION 05/28/2024 [facility] DATE CREATED AUTHOR AUTHOR'S ORGANIZ ATION 07/03/2024 [facility] REASON FOR VISIT (unrecogniz ed section [...] Active Start: May 26, 2024 Michela Medrano , Attending Provider Active Start: May 26, 2024 [...] Active Start: June 25, 2024 Team Status: Inactive Member Role Status Cecille Steven MD Primary Care Provide r, Attending Provider Active Start: July 07, 2024 End: July 07, 2024 Team Status: Active Member Role Status Cecille Steven MD Primary Care Provider Active Team [...] Active Start: June 25, 2024 Team Status: Inactive Member Role Status [...] January 18, 2024 End: January 18, 2024 AIMEE MichaudC Attending Provider Act chiqui Start: January 18, [...] Care Provide r, Attending Provider Active Start: July 07, 2024 End: July 07, 2024 Goals (unrecognized section and content) Goals [...] BE BASED ON THE PRIMARY CLINICAL RECORDS. [employer] [facility]. provides no warranty or guarantee of the accuracy or completeness of information in this document.
== END 2024-07-09 14:37 | disposition home or self-care (01) ==
LOC: PM 14:36
PROVIDERS: PCP Family Medicine; Visit Provider Nurse Practitioner
DX: M47.816 Spondylosis without myelopathy or radiculopathy, lumbar region (principal); E11.8 Type 2 diabetes mellitus with unspecified complications
CPT/HCPCS: G0463

== ENCOUNTER 2024-07-14 21:11 | Observation (INO) | payer MEDICARE, SELFPAY ==
[2024-07-14 21:18] VITALS: BP 182/74; PULSE 68; TEMP 36.6; O2SAT 98; BMI 42.4
[2024-07-14 21:43] VITALS: BP 177/68; PULSE 63
--- NOTE | 2024-07-14 22:01 | ECG_ITS ---
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
--- NOTE | 2024-07-14 22:01 | XR_ITS ---
The [address] [address] Patient Name: JOE CALL MRN: [id number] date: 1945 Sex: F Assigned Patient Location: ER Current Patient Location: ED.MAIN Accession/Order Number: [id number] Exam Date: 07/14/2024 22:10 Report Date: 07/14/2024 23:44 At the request of: MALCOM HENNING Procedure: XR chest 1V EXAM: XR chest 1V HISTORY: palpitations COMPARISON: Chest radiographs dated 05/04/2024. TECHNIQUE: One view of the chest was obtained. FINDINGS: The cardiac silhouette is enlarged though stable in size. Aortic atherosclerotic disease is seen. There is no significant pneumothorax or pleural effusion. There are hazy right basilar opacities. No acute osseous abnormality is seen. XR/XR chest 1V IMPRESSION: 1. Stable enlarged cardiac silhouette with hazy right basilar opacities that are felt to represent atelectasis. Electronically authenticated by: Miranda ALVAREZ Date: 07/14/2024 23:44
[2024-07-14 22:47] LABS: Basophils Absolute Auto 0.1 10^3/uL (0.0-0.1); Basophils Percent Auto 0.9 % (0.2-2.0); Eosinophils Absolute Auto 0.1 10^3/uL (0.0-0.7); Eosinophils Percent Auto 1.3 % (0.9-7.0); Hematocrit 38.5 % (36.0-48.0); Hemoglobin 12.8 g/dL (12.0-16.0); Immature Granulocytes Abs Auto 0.01 10^3/uL (0.00-0.03); Immature Granulocytes Pct Auto 0.1 % (0.0-0.5); Lymphocytes Absolute Auto 1.1 10^3/uL (1.2-3.8); Lymphocytes Percent Auto 13.7 % (20.5-60.0); Mean Corpuscular HGB Conc 33.2 g/dL (29.9-35.2); Mean Corpuscular Volume 90.2 fL (81.0-99.0); Monocytes Absolute Auto 0.5 10^3/uL (0.3-0.8); Monocytes Percent Auto 6.6 % (1.7-12.0); Neutrophils Absolute Auto 6.3 10^3/uL (1.4-6.5); Neutrophils Percent Auto 77.4 % (43.0-75.0); Platelet Count 182 10^3/uL (150-450); Red Blood Count 4.27 10^6/uL (4.20-5.40); Red Cell Distribution Width 13.5 % (11.0-15.0); White Blood Count 8.2 10^3/uL (4.0-11.0)
[2024-07-14 23:04] LABS: Anion Gap 7.5; BUN Creatinine Ratio 31.5; Carbon Dioxide 35.5 mmol/L (21.0-32.0); Chloride 96 mmol/L (98-107); Estimated GFR (African America 36 (>=60); Estimated GFR (Non-African Ame 30 (>=60); Glucose 458 mg/dL (74-106); Sodium 135 mmol/L (136-145); Troponin I High Sensitivity 17.9 pg/mL (4.0-51.3)
[2024-07-14 23:31] LABS: Glucometer 417 mg/dL (74-106)
[2024-07-14] MEDS: 0.9 % SODIUM CHLORIDE 1,000 ML 1000 ML IV (23:35)
[2024-07-14 23:37] VITALS: BP 141/45; PULSE 60; O2SAT 95
[2024-07-15 01:15] LABS: Glucometer 383 mg/dL (74-106)
--- NOTE | 2024-07-15 01:29 | ED_ITS ---
HPI HPI - General Adult General Chief complaint: Arrhythmia/Palpitations Stated complaint: HEART RHYTHM, NO PAIN Time Seen by Provider: 07/14/24 21:59 Source: patient Mode of arrival: walk-in Limitations: no limitations History of Present Illness HPI narrative: 79-year-old female to the emergency department chief complaint of intermittent palpitations. Patient reports that over the last few days she has had episodes of her heart racing. Does not respond like it normally does. She denies any chest pain or shortness of breath. She does have a history of atrial fibrillation and believes this feels slightly different. She did feel dizzy with the episodes. She has a history of congestive heart failure, atrial fibrillation. She is on metoprolol and a blood thinner per her report. She reports she normally lives in normal sinus rhythm. Related Data Home Medications ?Medication ?Instructions ?Recorded ?Confirmed insulin glargine 100 unit/mL (3 20 unit subcut BEDTIME 04/25/23 07/14/24 mL) subcutaneous pen (Lantus Solostar U-100 Insulin) metoprolol tartrate 100 mg tablet 150 mg PO BID 04/25/23 07/14/24 alprazolam 0.25 mg tablet 0.25 mg PO TID PRN anxiety 04/30/24 07/14/24 levothyroxine 125 mcg tablet 125 mcg PO .acb 04/30/24 07/14/24 oxycodone-acetaminophen 5 mg-325 1 tab PO BID PRN pain 04/30/24 07/14/24 mg tablet insulin NPH isoph U-100 human 100 1 unit subcut QID 06/09/24 07/14/24 unit/mL (3 mL) subcutaneous pen (Novolin N FlexPen) atorvastatin 20 mg tablet 20 mg PO DAILY 06/18/24 07/14/24 biotin 10,000 mcg disintegrating 10,000 mcg PO DAILY 06/18/24 07/14/24 tablet cholecalciferol (vitamin D3) 125 125 mcg PO DAILY 06/18/24 07/14/24 mcg (5,000 unit) tablet (Vitamin D3) lisinopril 10 mg tablet 10 mg PO DAILY 06/18/24 07/14/24 metronidazole 375 mg capsule 375 mg PO TID 06/18/24 07/14/24 rivaroxaban 20 mg tablet (Xarelto) 20 mg PO DAILY 06/18/24 07/14/24 vit C 226 mg-vit E 90 mg-copper 1 cap PO BID 06/18/24 07/14/24 0.8 mg-zinc oxide-lutein 5 mg capsule (PreserVision Lutein) bumetanide 1 mg tablet 1 mg PO Q12H 07/14/24 07/14/24 diltiazem HCl 120 mg 120 mg PO BID 07/14/24 07/14/24 capsule,extended release 24 hr gabapentin 100 mg capsule mg 07/14/24 insulin glargine 100 unit/mL 35 unit subcut DAILY 07/14/24 07/14/24 subcutaneous solution (Lantus U-100 Insulin) Previous Rx's ?Medication ?Instructions ?Recorded furosemide 40 mg tablet (Lasix) 40 mg PO DAILY #30 tabs 06/10/24 Allergies Allergy/AdvReac Type Severity Reaction Status Date / Time Iodinated Contrast Media Allergy Intermediate Hives Verified 07/14/24 21:23 shellfish derived Allergy Intermediate Hives Verified 07/14/24 21:23 Sulfa (Sulfonamide Allergy Rash Verified 07/14/24 21:23 Antibiotics) Opioid HPI Opioid Management Most Recent Opioid Data: Last Pain Scale 2 07/01/24 09:18 Last Pain Intensity 3 06/09/24 13:07 Last ORT Total Score 0 06/09/24 08:55 Last ORT Risk Category Low Risk 06/09/24 08:55 Review of Systems ROS Status of ROS 10 or more systems reviewed and unremark able except as noted in history and below [facility] Medical History (Updated 07/15/24 @ 01:37 by Rene Alvarez MD) Acute on chronic clinical systolic heart failure ?I50.23 - Acute on chronic systolic (congestive) heart failure (ICD-10) Acute renal failure ?N17.9 - Acute kidney failure, unspecified (ICD-10) Hyperkalemia ?E87.5 - Hyperkalemia (ICD-10) Acute dehydration ?E86.0 - Dehydration (ICD-10) CKD stage 3a, GFR 45-59 ml/min ?N18.31 - Chronic kidney disease, stage 3a (ICD-10) Diabetes mellitus with hyperglycemia, with long-term current use of insulin ?E11.65 - Type 2 diabetes mellitus with hyperglycemia (ICD-10) ?Z79.4 - FDC (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9 - Obesity, unspecified (ICD-10) Surgical History H/O bilateral mastectomy ?Z90.13 - Acquired absence of bilateral breasts and nipples (ICD-10) Family History Other Family history of CHF (congestive heart failure) Family history of cancer Family history of diabetes mellitus Family history of hypertension H/O mastectomy Social History Within the past year, how often did you have a drink containing alcohol: never Within the past year, how often did you have six or more drinks on one occasion: never Score interpretation: A score less than 3 is consistent with normal alcohol consumption. 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 Highest level of school completed/degree received: some college, no degree Do you want help with school or training: No Are you now , , , , never or living with a partner: In a typical week, how many times do you talk on the telephone with family, friends, or neighbors: 3 or more times per week How often do you get together with friends or relatives: 3 or more times per week How often do you attend presybeterian or zoroastrianism services: never Do you belong to any clubs or organizations such as presybeterian groups unions, fraEvergage or athletic groups, or school groups: no Total score: 2 Score interpretation: A score of greater than or equal to 2 indicates the lowest level of social isolation. Little interest or pleasure in doing things: not at all Feeling down, depressed, or hopeless: not at all Feel stressed/tense/nervous/anxious/difficulty sleeping: not at all Due to disability, difficulty making decisions: No Do you think of yourself as: straight/heterosexual Gender Identity: female Exam Narrative Exam Narrative: VITALS: I have reviewed the triage vital signs. GENERAL: Elderly female in no distress NEURO: Alert and oriented. Moves all extremities. Face is symmetric and expressive. EYES: PERRL. No scleral icterus or conjunctival injection. No discharge. HENT: Normocephalic, atraumatic. Hearing is grossly intact. Nares grossly patent and without discharge. Mucous membranes moist. NECK: No JVD. Patient moves neck without restriction. CARDIO: Rhythm regular. Normal rate. No murmur, rub, or gallop. Pulses equal bilaterally in the upper and lower extremity. No lower extremity edema. PULM: Lungs clear to auscultation in all [place]ley. No wheezes, rales, or rhonchi. No conversational dyspnea. No splinting, stridor, or accessory muscle use. GI/: Abdomen is soft and non-tender. Normoactive bowel sounds. EXTREMITIES: Symmetric muscle bulk. No joint swelling. No clubbing, cyanosis, or deformity. SKIN: Warm and dry. Normal turgor. No rash or lesions appreciated. PSYCH: Mood, affect, and interaction is appropriate to the setting. Constitutional Vital Signs, click to edit/add: Last Vital Signs Temp 97.9 F 07/14/24 21:18 Pulse 60 07/14/24 23:37 Resp 20 07/14/24 23:37 BP 141/45 L 07/14/24 23:37 Pulse Ox 95 07/14/24 23:37 O2 Del Method Room Air 07/14/24 23:37 Course Vital Signs Vital signs: Vital Signs Temperature 97.9 F 07/14/24 21:18 Pulse Rate 68 07/14/24 21:18 Respiratory Rate 18 07/14/24 21:18 Blood Pressure 182/74 H 07/14/24 21:18 Pulse Oximetry 98 07/14/24 21:18 Oxygen Delivery Method Room Air 07/14/24 21:18 Temperature 97.9 F 07/14/24 21:18 Pulse Rate 60 07/14/24 23:37 Respiratory Rate 20 07/14/24 23:37 Blood Pressure 141/45 L 07/14/24 23:37 Pulse Oximetry 95 07/14/24 23:37 Oxygen Delivery Method Room Air 07/14/24 23:37 Medical Decision Making MDM Narrative Medical decision making narrative: 79-year-old female to the emergency department chief complaint of palpitations. Vital stable, the patient is afebrile. She appears in normal sinus rhythm at this time. Basic labs ordered. Chest x-ray, EKG. Patient agrees with this plan. Patient found to have an CARMELO. She has some severe hyperglycemia. A liter of fluids was ordered. Will repeat blood glucose after the fluids. Consider insulin. EKG normal sinus rhythm, no evidence of ischemia. Normal QTc. Glucose remains elevated. In addition to the fluid she was given 10 units of lispro. Given her history of heart failure, palpitations will admit her for telemetry monitoring. Concern for arrhythmia. A-fib versus ventricular dysrhythmia. Gentle hydration. Case discussed with hospitalist who agrees to admit. Medical Records Medical records reviewed: Yes I reviewed the patient's medical records Lab Data Lab results reviewed: Yes I reviewed the patient's lab results Labs: Lab Results 07/14/24 07/14/24 07/15/24 Range/Units 22:40 23:30 01:14 WBC 8.2 (4.0-11.0) 10^3/uL RBC 4.27 (4.20-5.40) 10^6/uL Hgb 12.8 (12.0-16.0) g/dL Hct 38.5 (36.0-48.0) % MCV 90.2 (81.0-99.0) fL MCH 30.0 (26.7-34.0) pg MCHC 33.2 (29.9-35.2) g/dL RDW 13.5 (11.0-15.0) % Plt Count 182 (150-450) 10^3/uL MPV 11.0 (9.5-13.5) fL Neut % (Auto) 77.4 H (43.0-75.0) % Lymph % (Auto) 13.7 L (20.5-60.0) % [place] % (Auto) 6.6 (1.7-12.0) % Eos % (Auto) 1.3 (0.9-7.0) % Baso % (Auto) 0.9 (0.2-2.0) % Neut # (Auto) 6.3 (1.4-6.5) 10^3/uL Lymph # (Auto) 1.1 L (1.2-3.8) 10^3/uL [place] # (Auto) 0.5 (0.3-0.8) 10^3/uL Eos # (Auto) 0.1 (0.0-0.7) 10^3/uL Baso # (Auto) 0.1 (0.0-0.1) 10^3/uL Abs Immat Gran (auto) 0.01 (0.00-0.03) 10^3/uL Imm/Tot Granulo (auto) 0.1 (0.0-0.5) % Sodium 135 L (136-145) mmol/L Potassium 4.0 (3.5-5.1) mmol/L Chloride 96 L (98-107) mmol/L Carbon Dioxide 35.5 H (21.0-32.0) mmol/L Anion Gap 7.5 BUN 52.0 H (7.0-18.0) mg/dL Creatinine 1.65 H (0.55-1.02) mg/dL Est GFR ( Amer) 36 L (>=60) Est GFR (Non-Af Amer) 30 L (>=60) BUN/Creatinine Ratio 31.5 Glucose 458 H (74-106) mg/dL Calcium 9.0 (8.5-10.1) mg/dL Troponin I High Sens 17.9 (4.0-51.3) pg/mL POC Glucose 417 H 383 H (74-106) mg/dL Imaging Data Chest x-ray: Attestation: I have reviewed the pertinent imaging results. Radiologist's impression: ITS Impressions Chest X-Ray 07/14/24 22:01 IMPRESSION: 1. Stable enlarged cardiac silhouette with hazy right basilar opacities that are felt to represent atelectasis. Electronically authenticated by: Miranda ALVAREZ Date: 07/14/2024 23:44 ECG Data Attestation: I personally reviewed and interpreted this ECG as follows: (Normal sinus rhythm at a rate of 68. No STEMI. Normal QTc.) Discharge Plan Discharge Chief Complaint: Arrhythmia/Palpitations Clinical Impression: Acute kidney injury, Acute hyperglycemia, Intermittent palpitations Patient Disposition: Admitted as Observation Time of Disposition Decision: 01:37 Condition: Good Prescriptions / Home Meds: No Action insulin glargine [Lantus Solostar U-100 Insulin] 100 unit/mL (3 mL) insulin pen 20 unit SUBCUT BEDTIME metoprolol tartrate 100 mg tablet 150 mg PO BID levothyroxine 125 mcg tablet 125 mcg PO .acb alprazolam 0.25 mg tablet 0.25 mg PO TID PRN (Reason: anxiety) Patient Comments: 0.25mg PO TID PRN for anxiety oxycodone-acetaminophen 5-325 mg tablet 1 tab PO BID PRN (Reason: pain) bumetanide 1 mg tablet 1 mg PO Q12H diltiazem HCl 120 mg capsule,extended release 24hr 120 mg PO BID gabapentin 100 mg capsule insulin glargine [Lantus U-100 Insulin] 100 unit/mL solution 35 unit SUBCUT DAILY Xarelto 20 mg tablet 20 mg PO DAILY Rx Instructions: must administer with evening meal PreserVision Lutein 226-90-0.8-5 mg capsule 1 cap PO BID atorvastatin 20 mg tablet 20 mg PO DAILY cholecalciferol (vitamin D3) [Vitamin D3] 125 mcg (5,000 unit) tablet 125 mcg PO DAILY biotin 10,000 mcg tablet,disintegrating 10,000 mcg PO DAILY lisinopril 10 mg tablet 10 mg PO DAILY metronidazole 375 mg capsule 375 mg PO TID Novolin N FlexPen 100 unit/mL (3 mL) insulin pen 1 unit SUBCUT QID Patient Comments: (if BLOOD SUGAR is BETWEEN 150-199 INJECT 3 (THREE) UNITS, if BETWEEN 200-249 INJECT FOUR UNITS, if BETWEEN 250-299 INJECT 7 (SEVEN) UNITS, if BETWEEN 300-349 INJECT TEN UNITS, if BETWEEN 350-399 INJECT 12 UNITS, if 400 or great INJECT 14 UNITS) Rx Instructions: SLIDING SCALE furosemide [Lasix] 40 mg tablet 40 mg PO DAILY Qty: 30 0RF Print Language: Monegasque Referrals: Theodora Cuevas MD [Primary Care Provider] - 1 week
[2024-07-15] MEDS: INSULIN REGULAR, HUMAN (100 UNIT/ML) 10 ML MDV 10 UNIT SUBQ (02:01)
[2024-07-15 02:31] VITALS: BP 150/72; PULSE 64; TEMP 36.4; O2SAT 95; BMI 42.4
--- OUTSIDE RECORDS SUMMARY | 2024-07-15 02:34 | XMS_ITS | CCD ---
Author Organization [facility] CliniSypr Care Team Providers Care Opal Polisher Name Role Phone UNKNOWN, PROVIDER Unavailable Unavailable UNKNOWN, PROVIDER Unavailable Unavailable NIC BRYAN Unavailable Unavailable See STEVENSON Akbar Unavailable SHANTEL STEVEN Primary Care Physician Shantel [...] Attending Provider MD Eloina Hussein Referring Provider [phone] DO Jesus Barbour Emergency Provider Eloina Hussein Admitting Unavailable Shantel Steven Consulting Unavailable Shantel Steven Primary Care Unavailable Eloina Hussein Referring Unavailable Eloina Hussein Attending Unavailable Jesus Barbour Attending Unavailable Jesus Barbour Admitting Unavailable Shantel Steven Primary Care Unavailable MD Shantel Steven Primary Care Provider DO Jesus Barbour Emergency Provider MD Shantel Steven Primary Care Provider ENZO BARNES Attending Unavailable ENZO BARNES Attending Unavailable RICA KAPLAN Attending Unavailable MICHELA DELACRUZ Attending Unavailable RICA KAPLAN Attending Unavailable Allergies Allergy Classification Reported Allergen(s) Allergy Type Date of Onset Reaction(s) Facility (1 source) Iodine (And Iodine Containting Drugs) Drug allergy (disorder) 03-04-20 12 [facility] Repository (20 sources) Shellfish; Translations: [Shellfish] Food allergy (disorder) 03-04-20 12 rash, Eruption of skin (disorder) [facility] (14 sources) Sulfonamides (Antibiotic); Translations: [SULFA (SULFONAMIDE ANTIBIOTICS)] Drug allergy (disorder) 03-04-20 12 Rash [facility] (20 sources) Sulfacetamide Drug Allergy 02-15-[address] [facility] (13 sources) Contrast media; Translations: [contrast media (iodine-based)] Drug allergy Unknown (qualifier value) General Surgery [facility] (2 sources) Sulfonamides (Antibiotic); Translations: [sulfa drugs] Drug allergy Diarrhea (finding) [facility] (2 sources) Glucosamine Drug Allergy [facility] (2 sources) Iodine (And Iodine Containting Drugs) Drug allergy (disorder) 08-09-20 17 [facility] (11 sources) Contrast media Propensity to adverse reactions 11-18-[address] DYE Posterous Other (12 sources) Iodine; Translations: [IODINE] Drug Allergy 10-30-20 14 Unknown [facility] (11 sources) Substance with sulfonamide structure and antibacterial mechanism of action (substance) Drug allergy Unknown Posterous Other (11 sources) Dyes Propensity to adverse reactions Comment:CT Dyes,Dyes,IVP Dyes [facility] DDN Other (12 sources) Shellfish; Translations: [shellfish derived] Allergy to substance 10-30-20 14 [facility] (12 sources) Iodinated Contrast Media; Translations: [Iodinated Contrast Media] Allergy to substance 02-15-20 24 [facility] (1 source) Sulfacetamide Drug Allergy 05-22-[address] [facility] Repository (1 source) Sulfonamides (Antibiotic) Drug allergy (disorder) 05-22-[address] [facility] Repository (1 source) Chocolate; Translations: [CHOCOLATE FLAVOR] Propensity to adverse reactions to drug (disorder) 01-17-20 23 [facility] Rep[facility] Medications Current Medications [...] oral capsule (18 sources) Start: 06-05-2024 take 62187 ug by mouth once daily Biotin Active 14008 MCG PO daily June 05, 2024 12:00am Start: 01-17-2024 End: 04-03-2024 take 5 mg by mouth once daily Biotin Discontinued 5 MG PO Daily January 17, 2024 1:00am April 03, 2024 11:46am take 1 capsule by [facility] every twenty-four hours Biotin 5 MG [...] day Active take 1 capsule by mo [facility] every twenty-four hours Vitamin D3 25 MCG (1000 UT) 1 capsule Orally Once a day Active cholestyramine resin 4000 mg powder for oral suspension (1 source) Bile Acid Sequestrant Start: 04-26-2021 Questran 4 g/9 g oral powder = 1 packet(s), Oral, Daily, # 30 EA, Refills(s) 11, Pharmacy: [id number], 165.1, cm, 03/07/21 13:49:00 EDT, Height/Length [...] 2021 12:00am take 1 capsule by mo [facility] every twelve hours dilTIAZem HCl ER 120 MG 1 capsule Orally Twice a day Active famotidine 20 mg oral tablet (20 sources) Histamine-2 Receptor Antagonist Start: 01-17-2024 take 20 mg by mouth once daily at bedtime Famotidine Active 20 MG PO Daily at bedtime January 17, 2024 1:00am Start: 01-07-2023 [facility]four [facility] Famotidine 20 MG 1 [...] capsule Orally Once a day Active Vitamins A,C,L-Dxhy-Tmqtrj (Preservision Areds) 4,296 mcg-226 mg-90 mg capsule (9 sources) Start: 01-17-2024 take 1 capsule by mouth twice daily Vitamins A,C,L-Ltdo-Luqjuu (Preservision Areds) 4,296 mcg-226 mg-90 mg capsule [...] Active Start: 07-23-2023 take 1 tablet by [facility] twice daily oxyCODONE-Acetaminophen 5-325 MG 1 table t Orally two times daily for 30 days Jul, Active Start: 07-17-2023 take 1 tablet by [facility] twice daily oxyCODONE-Acetaminophen 5-325 MG 1 table t Orally two times daily for 30 days Jul, Active Start: 05-22-2023 Start: 04-03-2023 take 1 tablet by [facility] twice daily oxyCODONE-Acetaminophen 5-325 MG 1 table t Orally two times daily for 30 days March, Active Start: 02-02-2023 take 1 tablet by [facility] twice daily oxyCODONE-Acetaminophen 5-325 MG 1 table t Orally two times daily for 30 days Jan, Active Start: 11-30-2022 take 1 tablet by [facility] twice daily oxyCODONE-Acetaminophen 5-325 MG 1 table t Orally two times daily for 30 days Nov, Active Start: 07-27-2022 take 1 tablet by [facility] twice daily acetaminophen-oxycodone 325 mg-2.5 mg or al tablet 1 tab(s), Oral, BID, Refill(s) 0 Start Date: 07/27/22 Status: Ordered Start: 06-12-2021 End: 06-19-2021 take 1 tablet by mouth twice daily Oxycodone-Acetaminophen Discontinued 1 T AB PO Twice daily June 12, 2021 12:00am June 19, 2021 3:13am Start: 06-12-2021 End: 06-19-2021 [id number] 200 actuat albuterol 0.09 mg/actuat metered dose [...] bedtime Orally Once a day Not-Taking amylase 934871 unt / lipase 13044 unt / protease 85054 unt delayed release oral capsule (11 sources) Start: End: Cmsymb-Ivpfqcox-Cmd lase (Creon) 24,000-76,000 -120,000 unit capsule,delayed release(DR/EC) Discontinued 1 - 2 CAP PO 1-2 TIMES DAILY June 11, 2021 12:00am June 19, 2021 3:12am Start: 06-11-2021 End: 06-19-2021 Start: 05-10-2021 Creon 24,000 u nits oral delayed release capsule See Instructions, take 3 caps with each meal and 2 caps with each snack., # 390 caplet(s), Refills(s) 0, Pharmacy: [id number], 165.1, cm, 04/18/21 13:02:00 EDT, Height/Length [...] 2024 12:06pm Start: 01-17-2024 End: 06-05-2024 Nystatin [id number] UNIT/GM 1 application Externally Twice a day for 10 days Active Nystatin 496381 UNIT/GM 1 application Externally Twice a day for 10 days Active [place] 1-Zsd-Bzh-Fish Oil (Fish Oil) 1,000 mg (120 mg-180 mg) capsule (9 sources) Start: 01-17-2024 End: 04-03-2024 take 1 capsule by mouth once daily [place] 9-Ent-Eex-Fish Oil (Fish Oil) 1,000 mg (120 mg-180 mg) capsule Discontinued 1 CAP PO Daily January 17, 2024 1:00am April 03, 2024 11:49am Start: 01-17-2024 take 1 capsule by mo [facility] once daily [place] 5-Dfg-And-Fish Oil (Fish Oil) 1,000 mg (120 mg-180 [...] Coronary arteriosclerosis; Translations: [Atherosclerotic heart disease of [place] coronary artery without angina pectoris] Onset: 2 [...] sources) Long-term current use of insulin; Translations: [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 Normal [facility] Estimated glomerular filtrat ion rate (GFR) non- Americanon 06-24-2024 GFR/1.73 sq M.predicted among non-blacks MDRD (S/P/Bld) [Vol rate/Area] 38 mL/min/{1.73_m2} Low >=[address] [facility] Laboratory - Chemistry and C hemistry - challengeon 06-24-2024 Calcium [Mass/Vol] 8.4 mg/dL Low 8.5-10.1 [facility] Chloride [Moles/Vol] 100 mmol/L 98-107 [facility] CO2 [Moles/Vol] 31.1 mmol/L 21.0-32.0 [facility] Creatinine [Mass/Vol] 1.34 mg/dL High 0.55-1.02 [facility] GFR/1.73 sq M.predicted MDRD (S/P/Bld) [Vol rate/Area] 46 mL/min/{1.73_m2} Low >=[address] [facility] Glucose [Mass/Vol] 222 mg/dL High 74-106 [facility] Potassium [Moles/Vol] 3.6 mmol/L 3.5-5.1 [facility] Sodium [Moles/Vol] 138 mmol/L 136-145 [facility] Urea nitrogen [Mass/Vol] 32.0 mg/dL High 7.0-18.[address] [facility] Urea nitrogen/Creatinine [Mass ratio] 23.9 mg/mg [facility] Serum or plasma anion gap de terminationon 06-24-2024 Anion gap [Moles/Vol] 10.5 mmol/L [facility] Office Visiton 06-18-2024 Follow-up visit [id number] Joe Call 1945 F Date Provider Department Center 06/18/2024 RICA DEAN LOVE Bruno Family History Problem Relation Age of Onset Coronary artery disease Other Diabetes Other Polycystic kidney disease Other Family Status - Relation Status Age at Other Level of Service:55075 MS OFFICE/OUTPATIENT ESTABLISHED MOD MDM 30 MIN Normal [facility] Basophils Auto (Bld) [#/Vol] on 06-10-2024 Basophils (Bld) [#/Vol] 0.1 10 3/uL 0.0-0.[address] [facility] Basophils/100 WBC Auto (Bld) on 06-10-2024 Basophils/100 WBC (Bld) 1.0 % 0.2-2.0 [facility] Eosinophils/100 WBC Auto (Bl d)on 06-10-2024 Eosinophils/100 WBC (Bld) 1.3 % 0.9-7.[address] [facility] Erythrocyte distribution wid th Auto (RBC) [Ratio]on 06-10-2024 Erythrocyte distribution width (RBC) [Ratio] 14.6 % 11.0-15.[address] [facility] Estimated glomerular filtrat ion rate (GFR) non- Americanon 06-10-2024 GFR/1.73 sq M.predicted among non-blacks MDRD (S/P/Bld) [Vol rate/Area] 54 mL/min/{1.73_m2} Low >=[address] [facility] Globulin Calc (S) [Mass/Vol] on 06-10-2024 Globulin (S) [Mass/Vol] 4.5 g/dL [facility] Hematocrit Auto (Bld) [Volum e fraction]on 06-10-2024 Hematocrit (Bld) [Volume fraction] 36.8 % 36.0-48.[address] [facility] Hemoglobin [Mass/volume] in Bloodon 06-10-2024 Hemoglobin (Bld) [Mass/Vol] 12.1 g/dL 12.0-16.[address] [facility] Laboratory - Chemistry and C hemistry - challengeon 06-10-2024 Albumin [Mass/Vol] 2.4 g/dL Low 3.4-5.0 [facility] ALP [Catalytic activity/Vol] 94 U/L 46-[address] [facility] ALT [Catalytic activity/Vol] 13 U/L Low 14-[address] [facility] AST [Catalytic activity/Vol] 13 U/L Low 15-[address] [facility] Bilirubin [Mass/Vol] 0.9 mg/dL 0.2-1.0 [facility] Calcium [Mass/Vol] 8.9 mg/dL 8.5-10.1 [facility] Chloride [Moles/Vol] 101 mmol/L 98-107 [facility] CO2 [Moles/Vol] 29.4 mmol/L 21.0-32.0 [facility] Creatinine [Mass/Vol] 1.00 mg/dL 0.55-1.02 [facility] GFR/1.73 sq M.predicted MDRD (S/P/Bld) [Vol rate/Area] mL/min/{1.73_m2} >=[address] [facility] Glucose [Mass/Vol] 167 mg/dL High 74-106 [facility] Potassium [Moles/Vol] 3.4 mmol/L Low 3.5-5.1 [facility] Protein [Mass/Vol] 6.9 g/dL 6.4-8.2 [facility] Sodium [Moles/Vol] 136 mmol/L 136-145 [facility] Urea nitrogen [Mass/Vol] 24.0 mg/dL High 7.0-18.[address] [facility] Urea nitrogen/Creatinine [Mass ratio] 24.0 mg/mg [facility] Laboratory - Hematology and Cell countson 06-10-2024 Immature granulocytes/100 WBC (Bld) 0.3 % 0.0-0.[address] [facility] Leukocytes [#/volume] correc gali for nucleated erythrocytes in Blood by Automated counon 06-10-2024 WBC corrected for nucl RBC Auto (Bld) [#/Vol] 7.9 10 3/uL 4.0-11.[address] [facility] Lymphocytes Auto (Bld) [#/Vo l]on 06-10-2024 Lymphocytes (Bld) [#/Vol] 1.3 10 3/uL 1.2-3.[address] [facility] Lymphocytes/100 WBC Auto (Bl d)on 06-10-2024 Lymphocytes/100 WBC (Bld) 16.8 % Low 20.5-60.[address] [facility] MCH Auto (RBC) [Entitic mass ]on 06-10-2024 MCH (RBC) [Entitic mass] 29.8 pg 26.7-34.[address] [facility] MCHC Auto (RBC) [Mass/Vol]on 06-10-2024 MCHC (RBC) [Mass/Vol] 32.9 g/dL 29.9-35.2 [facility] MCV Auto (RBC) [Entitic vol] on 06-10-2024 MCV (RBC) [Entitic vol] 90.6 fL 81.0-99.0 [facility] Monocytes Auto (Bld) [#/Vol] on 06-10-2024 Monocytes (Bld) [#/Vol] 0.8 10 3/uL 0.3-0.[address] [facility] Monocytes/100 WBC Auto (Bld) on 06-10-2024 Monocytes/100 WBC (Bld) 9.8 % 1.7-12.0 [facility] Neutrophils Auto (Bld) [#/Vo l]on 06-10-2024 Neutrophils (Bld) [#/Vol] 5.6 10 3/uL 1.4-6.[address] [facility] Neutrophils/100 WBC Auto (Bl d)on 06-10-2024 Neutrophils/100 WBC (Bld) 70.8 % 43.0-75.[address] [facility] No Panel Informationon 06-10 Eosinophils # (Auto) 0.1 10 3/uL 0.0-0.7 [facility] Immature Granulocyte # (Auto) 0.02 10 3/uL 0.00-0.[address] [facility] 2.4 g/dL Low 3.4-5.[address] [facility] 0.1 10 3/uL 0.0-0.[address] [facility] 94 U/L 46-[address] [facility] 13 U/L Low 15-[address] [facility] [address] [facility] 0.02 10 3/uL 0.00-0.[address] [facility] 24.0 mg/dL High 7.0-18.[address] [facility] 0.3 % 0.0-0.[address] [facility] 8.9 mg/dL 8.5-10.[address] [facility] 101 mmol/L 98-[address] [facility] 29.4 mmol/L 21.0-32.[address] [facility] 1.00 mg/dL 0.55-1.[address] [facility] >60 >=[address] [facility] 167 mg/dL High 74-[address] [facility] 3.4 mmol/L Low 3.5-5.[address] [facility] 136 mmol/L 136-[address] [facility] 0.9 mg/dL 0.2-1.[address] [facility] 6.9 g/dL 6.4-8.[address] [facility] Platelet mean volume Auto (B ld) [Entitic vol]on 06-10-2024 Platelet mean volume (Bld) [Entitic vol] 11.2 fL 9.5-13.[address] [facility] Platelets Auto (Bld) [#/Vol] on 06-10-2024 Platelets (Bld) [#/Vol] 189 10 3/uL 150-[address] [facility] RBC Auto (Bld) [#/Vol]on RBC (Bld) [#/Vol] 4.06 10 6/uL Low 4.20-5.40 [facility] Serum or plasma albumin/glob ulin mass ratioon 06-10-2024 Albumin/Globulin [Mass ratio] 0.5 {ratio} [facility] Serum or plasma anion gap de terminationon 06-10-2024 Anion gap [Moles/Vol] 9.0 mmol/L [facility] Basophils Auto (Bld) [#/Vol] on 06-09-2024 Basophils (Bld) [#/Vol] 0.1 10 3/uL 0.0-0.[address] [facility] Basophils/100 WBC Auto (Bld) on 06-09-2024 Basophils/100 WBC (Bld) 1.0 % 0.2-2.0 [facility] Eosinophils/100 WBC Auto (Bl d)on 06-09-2024 Eosinophils/100 WBC (Bld) 1.5 % 0.9-7.[address] [facility] Erythrocyte distribution wid th Auto (RBC) [Ratio]on 06-09-2024 Erythrocyte distribution width (RBC) [Ratio] 14.8 % 11.0-15.[address] [facility] Estimated glomerular filtrat ion rate (GFR) non- Americanon 06-09-2024 GFR/1.73 sq M.predicted among non-blacks MDRD (S/P/Bld) [Vol rate/Area] mL/min/{1.73_m2} >=[address] [facility] Fibrin D-dimer [Presence] in Platelet poor plasma by Latex agglutinationon 06-09-2024 Fibrin D-dimer LA Ql (PPP) 0.39 mg/L FEU <=0.[address] [facility] Comment on above: Increases in D-Dimer [...] 06-09-2024 Globulin (S) [Mass/Vol] 4.8 g/dL [facility] Hematocrit Auto (Bld) [Volum e fraction]on 06-09-2024 Hematocrit (Bld) [Volume fraction] 37.7 % 36.0-48.[address] [facility] Hemoglobin [Mass/volume] in Bloodon 06-09-2024 Hemoglobin (Bld) [Mass/Vol] 12.5 g/dL 12.0-16.[address] [facility] Laboratory - Chemistry and C hemistry - challengeon 06-09-2024 Albumin [Mass/Vol] 2.5 g/dL Low 3.4-5.0 [facility] ALP [Catalytic activity/Vol] 86 U/L 46-[address] [facility] ALT [Catalytic activity/Vol] 18 U/L 14-[address] [facility] AST [Catalytic activity/Vol] 34 U/L 15-[address] [facility] Bilirubin [Mass/Vol] 0.8 mg/dL 0.2-1.0 [facility] Calcium [Mass/Vol] 8.6 mg/dL 8.5-10.1 [facility] Chloride [Moles/Vol] 103 mmol/L 98-107 [facility] CO2 [Moles/Vol] 27.1 mmol/L 21.0-32.0 [facility] Creatinine [Mass/Vol] 0.88 mg/dL 0.55-1.02 [facility] GFR/1.73 sq M.predicted MDRD (S/P/Bld) [Vol rate/Area] mL/min/{1.73_m2} >=[address] [facility] Glucose [Mass/Vol] 142 mg/dL High 74-106 [facility] Lipase [Catalytic activity/Vol] 45.0 U/L 16.0-77.[address] [facility] Natriuretic peptide B (Bld) [Mass/Vol] 3488.0 pg/mL High <=1800.[address] [facility] Comment on above: RESULTS CALLED TO MAIDA MCGOWAN RN @BY Alla Kevin [id number] Potassium [Moles/Vol] 5.0 mmol/L 3.5-5.1 [facility] Protein [Mass/Vol] 7.3 g/dL 6.4-8.2 [facility] Sodium [Moles/Vol] 135 mmol/L Low 136-145 [facility] Urea nitrogen [Mass/Vol] 28.0 mg/dL High 7.0-18.[address] [facility] Urea nitrogen/Creatinine [Mass ratio] 31.8 mg/mg [facility] Laboratory - Hematology and Cell countson 06-09-2024 Immature granulocytes/100 WBC (Bld) 0.3 % 0.0-0.[address] [facility] Laboratory - Microbiology an d Antimicrobial susceptibilityon 06-09-2024 SARS-CoV-2 (COVID-19) RNA FERN+probe Ql (Unsp spec) Negative NEGATIVE [facility] Comment on above: This test has [...] Auto (Bld) [#/Vol] 8.9 10 3/uL 4.0-11.[address] [facility] Lymphocytes Auto (Bld) [#/Vo l]on 06-09-2024 Lymphocytes (Bld) [#/Vol] 1.3 10 3/uL 1.2-3.[address] [facility] Lymphocytes/100 WBC Auto (Bl d)on 06-09-2024 Lymphocytes/100 WBC (Bld) 15.1 % Low 20.5-60.[address] [facility] MCH Auto (RBC) [Entitic mass ]on 06-09-2024 MCH (RBC) [Entitic mass] 30.3 pg 26.7-34.[address] [facility] MCHC Auto (RBC) [Mass/Vol]on 06-09-2024 MCHC (RBC) [Mass/Vol] 33.2 g/dL 29.9-35.2 [facility] MCV Auto (RBC) [Entitic vol] on 06-09-2024 MCV (RBC) [Entitic vol] 91.5 fL 81.0-99.0 [facility] Monocytes Auto (Bld) [#/Vol] on 06-09-2024 Monocytes (Bld) [#/Vol] 0.7 10 3/uL 0.3-0.[address] [facility] Monocytes/100 WBC Auto (Bld) on 06-09-2024 Monocytes/100 WBC (Bld) 7.9 % 1.7-12.0 [facility] Neutrophils Auto (Bld) [#/Vo l]on 06-09-2024 Neutrophils (Bld) [#/Vol] 6.6 10 3/uL High 1.4-6.[address] [facility] Neutrophils/100 WBC Auto (Bl d)on 06-09-2024 Neutrophils/100 WBC (Bld) 74.2 % 43.0-75.[address] [facility] No Panel Informationon 06-[address] [facility] Eosinophils # (Auto) 0.1 10 3/uL 0.0-0.7 [facility] Immature Granulocyte # (Auto) 0.03 10 3/uL 0.00-0.[address] [facility] Troponin I High Sensitivity 17.0 pg/mL 4.0-51.[address] [facility] Comment on above: CUT-OFF POINTS HAVE [...] AND CLINICAL INFORMATION. 3488.0 pg/mL High <=1800.[address] [facility] 45.0 U/L 16.0-77.[address] [facility] 17.0 pg/mL 4.0-51.[address] [facility] 2.5 g/dL Low 3.4-5.[address] [facility] 0.1 10 3/uL 0.0-0.[address] [facility] 86 U/L 46-[address] [facility] 18 U/L 14-[address] [facility] 34 U/L 15-[address] [facility] [address] [facility] 0.03 10 3/uL 0.00-0.[address] [facility] 28.0 mg/dL High 7.0-18.[address] [facility] 0.3 % 0.0-0.[address] [facility] 8.6 mg/dL 8.5-10.[address] [facility] 103 mmol/L 98-[address] [facility] 27.1 mmol/L 21.0-32.[address] [facility] 0.88 mg/dL 0.55-1.[address] [facility] >60 >=[address] [facility] 142 mg/dL High 74-[address] [facility] 5.0 mmol/L 3.5-5.[address] [facility] 135 mmol/L Low 136-[address] [facility] 0.8 mg/dL 0.2-1.[address] [facility] 7.3 g/dL 6.4-8.[address] [facility] Platelet mean volume Auto (B ld) [Entitic vol]on 06-09-2024 Platelet mean volume (Bld) [Entitic vol] 12.4 fL 9.5-13.[address] [facility] Platelets Auto (Bld) [#/Vol] on 06-09-2024 Platelets (Bld) [#/Vol] 205 10 3/uL 150-[address] [facility] RBC Auto (Bld) [#/Vol]on RBC (Bld) [#/Vol] 4.12 10 6/uL Low 4.20-5.40 [facility] Serum or plasma albumin/glob ulin mass ratioon 06-09-2024 Albumin/Globulin [Mass ratio] 0.5 {ratio} [facility] Serum or plasma anion gap de terminationon 06-09-2024 Anion gap [Moles/Vol] 9.9 mmol/L [facility] Basophils Auto (Bld) [#/Vol] on 06-01-2024 Basophils (Bld) [#/Vol] 0.1 10 3/uL 0.0-0.[address] [facility] Basophils/100 WBC Auto (Bld) on 06-01-2024 Basophils/100 WBC (Bld) 0.9 % 0.2-2.0 [facility] Eosinophils/100 WBC Auto (Bl d)on 06-01-2024 Eosinophils/100 WBC (Bld) 1.2 % 0.9-7.[address] [facility] Erythrocyte distribution wid th Auto (RBC) [Ratio]on 06-01-2024 Erythrocyte distribution width (RBC) [Ratio] 14.1 % 11.0-15.[address] [facility] Estimated glomerular filtrat ion rate (GFR) non- Americanon 06-01-2024 GFR/1.73 sq M.predicted among non-blacks MDRD (S/P/Bld) [Vol rate/Area] 47 mL/min/{1.73_m2} Low >=[address] [facility] Globulin Calc (S) [Mass/Vol] on 06-01-2024 Globulin (S) [Mass/Vol] 4.4 g/dL [facility] Hematocrit Auto (Bld) [Volum e fraction]on 06-01-2024 Hematocrit (Bld) [Volume fraction] 37.6 % 36.0-48.[address] [facility] Hemoglobin [Mass/volume] in Bloodon 06-01-2024 Hemoglobin (Bld) [Mass/Vol] 12.5 g/dL 12.0-16.[address] [facility] Laboratory - Chemistry and C hemistry - challengeon 06-01-2024 Albumin [Mass/Vol] 2.7 g/dL Low 3.4-5.0 [facility] ALP [Catalytic activity/Vol] 87 U/L 46-[address] [facility] ALT [Catalytic activity/Vol] 18 U/L 14-[address] [facility] AST [Catalytic activity/Vol] 16 U/L 15-[address] [facility] Bilirubin [Mass/Vol] 0.5 mg/dL 0.2-1.0 [facility] Calcium [Mass/Vol] 8.7 mg/dL 8.5-10.1 [facility] Chloride [Moles/Vol] 101 mmol/L 98-107 [facility] CO2 [Moles/Vol] 28.9 mmol/L 21.0-32.0 [facility] Creatinine [Mass/Vol] 1.12 mg/dL High 0.55-1.02 [facility] GFR/1.73 sq M.predicted MDRD (S/P/Bld) [Vol rate/Area] 57 mL/min/{1.73_m2} Low >=[address] [facility] Glucose [Mass/Vol] 232 mg/dL High 74-106 [facility] Potassium [Moles/Vol] 4.1 mmol/L 3.5-5.1 [facility] Protein [Mass/Vol] 7.1 g/dL 6.4-8.2 [facility] Sodium [Moles/Vol] 137 mmol/L 136-145 [facility] Urea nitrogen [Mass/Vol] 23.0 mg/dL High 7.0-18.[address] [facility] Urea nitrogen/Creatinine [Mass ratio] 20.5 mg/mg [facility] Laboratory - Hematology and Cell countson 06-01-2024 Immature granulocytes/100 WBC (Bld) 0.2 % 0.0-0.[address] [facility] Leukocytes [#/volume] correc gali for nucleated erythrocytes in Blood by Automated counon 06-01-2024 WBC corrected for nucl RBC Auto (Bld) [#/Vol] 9.0 10 3/uL 4.0-11.[address] [facility] Lymphocytes Auto (Bld) [#/Vo l]on 06-01-2024 Lymphocytes (Bld) [#/Vol] 1.4 10 3/uL 1.2-3.[address] [facility] Lymphocytes/100 WBC Auto (Bl d)on 06-01-2024 Lymphocytes/100 WBC (Bld) 15.9 % Low 20.5-60.[address] [facility] MCH Auto (RBC) [Entitic mass ]on 06-01-2024 MCH (RBC) [Entitic mass] 29.5 pg 26.7-34.[address] [facility] MCHC Auto (RBC) [Mass/Vol]on 06-01-2024 MCHC (RBC) [Mass/Vol] 33.2 g/dL 29.9-35.2 [facility] MCV Auto (RBC) [Entitic vol] on 06-01-2024 MCV (RBC) [Entitic vol] 88.7 fL 81.0-99.0 [facility] Monocytes Auto (Bld) [#/Vol] on 06-01-2024 Monocytes (Bld) [#/Vol] 0.8 10 3/uL 0.3-0.[address] [facility] Monocytes/100 WBC Auto (Bld) on 06-01-2024 Monocytes/100 WBC (Bld) 8.5 % 1.7-12.0 [facility] Neutrophils Auto (Bld) [#/Vo l]on 06-01-2024 Neutrophils (Bld) [#/Vol] 6.6 10 3/uL High 1.4-6.5 [facility] Neutrophils/100 WBC Auto (Bl d)on 06-01-2024 Neutrophils/100 WBC (Bld) 73.3 % 43.0-75.[address] [facility] No Panel Informationon 06-01 Eosinophils # (Auto) 0.1 10 3/uL 0.0-0.7 [facility] Immature Granulocyte # (Auto) 0.02 10 3/uL 0.00-0.[address] [facility] 2.7 g/dL Low 3.4-5.[address] [facility] 0.1 10 3/uL 0.0-0.[address] [facility] 87 U/L 46-[address] [facility] 18 U/L 14-[address] [facility] 16 U/L 15-[address] [facility] [address] [facility] 0.02 10 3/uL 0.00-0.[address] [facility] 23.0 mg/dL High 7.0-18.[address] [facility] 0.2 % 0.0-0.[address] [facility] 8.7 mg/dL 8.5-10.[address] [facility] 101 mmol/L 98-[address] [facility] 28.9 mmol/L 21.0-32.[address] [facility] 1.12 mg/dL High 0.55-1.[address] [facility] 57 Low >=[address] [facility] 232 mg/dL High 74-[address] [facility] 4.1 mmol/L 3.5-5.[address] [facility] 137 mmol/L 136-[address] [facility] 0.5 mg/dL 0.2-1.[address] [facility] 7.1 g/dL 6.4-8.[address] [facility] Platelet mean volume Auto (B ld) [Entitic vol]on 06-01-2024 Platelet mean volume (Bld) [Entitic vol] 11.1 fL 9.5-13.[address] [facility] Platelets Auto (Bld) [#/Vol] on 06-01-2024 Platelets (Bld) [#/Vol] 162 10 3/uL 150-[address] [facility] RBC Auto (Bld) [#/Vol]on RBC (Bld) [#/Vol] 4.24 10 6/uL 4.20-5.40 [facility] Serum or plasma albumin/glob ulin mass ratioon 06-01-2024 Albumin/Globulin [Mass ratio] 0.6 {ratio} [facility] Serum or plasma anion gap de terminationon 06-01-2024 Anion gap [Moles/Vol] 11.2 mmol/L [facility] Basophils Auto (Bld) [#/Vol] on 05-26-2024 Basophils (Bld) [#/Vol] 0.1 10 3/uL 0.0-0.[address] [facility] Basophils/100 WBC Auto (Bld) on 05-26-2024 Basophils/100 WBC (Bld) 1.1 % 0.2-2.0 [facility] Eosinophils/100 WBC Auto (Bl d)on 05-26-2024 Eosinophils/100 WBC (Bld) 2.1 % 0.9-7.[address] [facility] Erythrocyte distribution wid th Auto (RBC) [Ratio]on 05-26-2024 Erythrocyte distribution width (RBC) [Ratio] 14.0 % 11.0-15.[address] [facility] Estimated glomerular filtrat ion rate (GFR) non- Americanon 05-26-2024 GFR/1.73 sq M.predicted among non-blacks MDRD (S/P/Bld) [Vol rate/Area] 40 mL/min/{1.73_m2} Low >=[address] [facility] Globulin Calc (S) [Mass/Vol] on 05-26-2024 Globulin (S) [Mass/Vol] 4.4 g/dL [facility] Hematocrit Auto (Bld) [Volum e fraction]on 05-26-2024 Hematocrit (Bld) [Volume fraction] 35.9 % Low 36.0-48.[address] [facility] Hemoglobin [Mass/volume] in Bloodon 05-26-2024 Hemoglobin (Bld) [Mass/Vol] 12.0 g/dL 12.0-16.[address] [facility] Laboratory - Chemistry and C hemistry - challengeon 05-26-2024 Albumin [Mass/Vol] 2.7 g/dL Low 3.4-5.0 [facility] ALP [Catalytic activity/Vol] 88 U/L 46-[address] [facility] ALT [Catalytic activity/Vol] 20 U/L 14-[address] [facility] AST [Catalytic activity/Vol] 12 U/L Low 15-[address] [facility] Bilirubin [Mass/Vol] 0.5 mg/dL 0.2-1.0 [facility] Calcium [Mass/Vol] 8.9 mg/dL 8.5-10.1 [facility] Chloride [Moles/Vol] 104 mmol/L 98-107 [facility] CO2 [Moles/Vol] 26.7 mmol/L 21.0-32.0 [facility] Creatinine [Mass/Vol] 1.29 mg/dL High 0.55-1.02 [facility] Free T4 [Mass/Vol] 1.19 ng/dL 0.76-1.46 [facility] GFR/1.73 sq M.predicted MDRD (S/P/Bld) [Vol rate/Area] 49 mL/min/{1.73_m2} Low >=[address] [facility] Glucose [Mass/Vol] 233 mg/dL High 74-106 [facility] Natriuretic peptide B (Bld) [Mass/Vol] 2687.0 pg/mL High <=1800.[address] [facility] Comment on above: RESULTS CALLED TO DR Miranda HENNING IN ER BY Mira Edwards [id number] Potassium [Moles/Vol] 4.0 mmol/L 3.5-5.1 [facility] Protein [Mass/Vol] 7.1 g/dL 6.4-8.2 [facility] Sodium [Moles/Vol] 140 mmol/L 136-145 [facility] TSH Qn 4.487 m[IU]/L High 0.358-3.[address] [facility] Urea nitrogen [Mass/Vol] 33.0 mg/dL High 7.0-18.[address] [facility] Urea nitrogen/Creatinine [Mass ratio] 25.6 mg/mg [facility] Laboratory - Hematology and Cell countson 05-26-2024 Immature granulocytes/100 WBC (Bld) 0.1 % 0.0-0.[address] [facility] Laboratory - Microbiology an d Antimicrobial susceptibilityon 05-26-2024 S. pyogenes Ag Ql (Unsp spec) Negative [facility] SARS-CoV-2 (COVID-19) RNA FERN+probe Ql (Unsp spec) Not detected NOT DETECTE [facility] Comment on above: THIS TEST IS NOT PEREZ ROVDED BY THE FDA. It has beenauthorized for use under an Emergency Use Authorization. SARS-CoV-2 (COVID-19) RNA FERN+probe Ql (Unsp spec) See comment NOT DETECTE [facility] Comment on above: COVID AG PERFORMED-- - 06/06/24 1120 ---SARS-CoV-2 FERN previously reported as: NOT DETECTEDTHIS TEST IS NOT APPROVDED BY THE FDA. It has beenauthorized for use under an Emergency Use Authorization. SARS-CoV-2 (COVID-19) RNA FERN+probe Ql (Unsp spec) Negative NEGATIVE [facility] Comment on above: This test has [...] Auto (Bld) [#/Vol] 7.3 10 3/uL 4.0-11.[address] [facility] Lymphocytes Auto (Bld) [#/Vo l]on 05-26-2024 Lymphocytes (Bld) [#/Vol] 1.3 10 3/uL 1.2-3.[address] [facility] Lymphocytes/100 WBC Auto (Bl d)on 05-26-2024 Lymphocytes/100 WBC (Bld) 18.4 % Low 20.5-60.[address] [facility] MCH Auto (RBC) [Entitic mass ]on 05-26-2024 MCH (RBC) [Entitic mass] 30.4 pg 26.7-34.[address] [facility] MCHC Auto (RBC) [Mass/Vol]on 05-26-2024 MCHC (RBC) [Mass/Vol] 33.4 g/dL 29.9-35.2 [facility] MCV Auto (RBC) [Entitic vol] on 05-26-2024 MCV (RBC) [Entitic vol] 90.9 fL 81.0-99.0 [facility] Monocytes Auto (Bld) [#/Vol] on 05-26-2024 Monocytes (Bld) [#/Vol] 0.7 10 3/uL 0.3-0.[address] [facility] Monocytes/100 WBC Auto (Bld) on 05-26-2024 Monocytes/100 WBC (Bld) 9.5 % 1.7-12.0 [facility] Neutrophils Auto (Bld) [#/Vo l]on 05-26-2024 Neutrophils (Bld) [#/Vol] 5.0 10 3/uL 1.4-6.[address] [facility] Neutrophils/100 WBC Auto (Bl d)on 05-26-2024 Neutrophils/100 WBC (Bld) 68.8 % 43.0-75.[address] [facility] No Panel Informationon 05-26 See comment NOT DETECTE [facility] Negative [facility] Eosinophils # (Auto) 0.2 10 3/uL 0.0-0.7 [facility] Immature Granulocyte # (Auto) 0.01 10 3/uL 0.00-0.[address] [facility] Monoscreen Negative NEGATIVE [facility] Troponin I High Sensitivity 14.9 pg/mL 4.0-51.[address] [facility] Comment on above: CUT-OFF POINTS HAVE [...] DIAGNOSTIC AND CLINICAL INFORMATION. 1.19 ng/dL 0.76-1.[address] [facility] 2687.0 pg/mL High <=1800.[address] [facility] 14.9 pg/mL 4.0-51.[address] [facility] 4.487 u[iU]/mL High 0.358-3.[address] [facility] Negative NEGATIVE [facility] 2.7 g/dL Low 3.4-5.[address] [facility] 0.2 10 3/uL 0.0-0.[address] [facility] 88 U/L 46-[address] [facility] 20 U/L 14-[address] [facility] 12 U/L Low 15-[address] [facility] 25[address] [facility] 0.01 10 3/uL 0.00-0.[address] [facility] 33.0 mg/dL High 7.0-18.[address] [facility] 0.1 % 0.0-0.[address] [facility] 8.9 mg/dL 8.5-10.[address] [facility] 104 mmol/L 98-[address] [facility] 26.7 mmol/L 21.0-32.[address] [facility] 1.29 mg/dL High 0.55-1.[address] [facility] 49 Low >=[address] [facility] 233 mg/dL High 74-[address] [facility] 4.0 mmol/L 3.5-5.[address] [facility] 140 mmol/L 136-[address] [facility] 0.5 mg/dL 0.2-1.[address] [facility] 7.1 g/dL 6.4-8.[address] [facility] Platelet mean volume Auto (B ld) [Entitic vol]on 05-26-2024 Platelet mean volume (Bld) [Entitic vol] 10.6 fL 9.5-13.[address] [facility] Platelets Auto (Bld) [#/Vol] on 05-26-2024 Platelets (Bld) [#/Vol] 215 10 3/uL 150-[address] [facility] RBC Auto (Bld) [#/Vol]on RBC (Bld) [#/Vol] 3.95 10 6/uL Low 4.20-5.40 [facility] Serum or plasma albumin/glob ulin mass ratioon 05-26-2024 Albumin/Globulin [Mass ratio] 0.6 {ratio} [facility] Serum or plasma anion gap de terminationon 05-26-2024 Anion gap [Moles/Vol] 13.3 mmol/L [facility] ECG 12 lead ECGon 05-22-2024 ECG 12 lead ECG [facility] [place] [address] [place] [address] Electrocardiograph Report Signed Patient: Joe Call MR#: [id number] 0 : 1945 Acct:[id number] Age/Sex: 78 / F ADM Date: 05/22/24 Loc: ER Room: Type: [facility] ER Attending Dr: Ordering Provider: Jesus [...] Sinus bradycardia Confirmed by Daniele Jane DO ([id number]) on 05/22/2024 4:08:55 PM Referred By: Electronically Signed By: Daniele Jane DO Transcribed By: MUS Signed By Daniele Jane DO [id number] [facility] 37on 05-20-2024 37 Have [...] pillows than normal or in recliner. Normal [facility] Estimated glomerular filtrat ion rate (GFR) non- Americanon 05-20-2024 GFR/1.73 sq M.predicted among non-blacks MDRD (S/P/Bld) [Vol rate/Area] 39 mL/min/{1.73_m2} Low >=[address] [facility] Laboratory - Chemistry and C hemistry - challengeon 05-20-2024 Calcium [Mass/Vol] 8.8 mg/dL 8.5-10.1 [facility] Chloride [Moles/Vol] 103 mmol/L 98-107 [facility] CO2 [Moles/Vol] 24.3 mmol/L 21.0-32.0 [facility] Creatinine [Mass/Vol] 1.32 mg/dL High 0.55-1.02 [facility] GFR/1.73 sq M.predicted MDRD (S/P/Bld) [Vol rate/Area] 47 mL/min/{1.73_m2} Low >=[address] [facility] Glucose [Mass/Vol] 243 mg/dL High 74-106 [facility] Potassium [Moles/Vol] 5.0 mmol/L 3.5-5.1 [facility] Sodium [Moles/Vol] 138 mmol/L 136-145 [facility] Urea nitrogen [Mass/Vol] 35.0 mg/dL High 7.0-18.[address] [facility] Urea nitrogen/Creatinine [Mass ratio] 26.5 mg/mg [facility] No Panel Informationon 05-[address] [facility] 35.0 mg/dL High 7.0-18.[address] [facility] 8.8 mg/dL 8.5-10.[address] [facility] 103 mmol/L 98-[address] [facility] 24.3 mmol/L 21.0-32.[address] [facility] 1.32 mg/dL High 0.55-1.[address] [facility] 47 Low >=[address] [facility] 243 mg/dL High 74-[address] [facility] 5.0 mmol/L 3.5-5.[address] [facility] 138 mmol/L 136-[address] [facility] Office Visiton 05-20-2024 Follow-up visit [id number] Joe Call 1945 F Date Provider Department Center 05/20/2024 [facility] Family History Problem Relation Age of Onset Coronary artery disease Other Diabetes Other Polycystic kidney disease Other Family Status - Relation Status Age at Other Level of Service:36906 MS OFFICE/OUTPATIENT ESTABLISHED MOD MDM 30 MIN Normal [facility] Serum or plasma anion gap de terminationon 05-20-2024 Anion gap [Moles/Vol] 15.7 [facility] Basophils Auto (Bld) [#/Vol] on 05-06-2024 Basophils (Bld) [#/Vol] 0.1 10 3/uL 0.0-0.[address] [facility] Basophils/100 WBC Auto (Bld) on 05-06-2024 Basophils/100 WBC (Bld) 0.9 % 0.2-2.0 [facility] Eosinophils/100 WBC Auto (Bl d)on 05-06-2024 Eosinophils/100 WBC (Bld) 2.7 % 0.9-7.[address] [facility] Erythrocyte distribution wid th Auto (RBC) [Ratio]on 05-06-2024 Erythrocyte distribution width (RBC) [Ratio] 13.5 % 11.0-15.[address] [facility] Estimated glomerular filtrat ion rate (GFR) non- Americanon 05-06-2024 GFR/1.73 sq M.predicted among non-blacks MDRD (S/P/Bld) [Vol rate/Area] 32 mL/min/{1.73_m2} Low >=[address] [facility] Globulin Calc (S) [Mass/Vol] on 05-06-2024 Globulin (S) [Mass/Vol] 4.3 g/dL [facility] Hematocrit Auto (Bld) [Volum e fraction]on 05-06-2024 Hematocrit (Bld) [Volume fraction] 34.6 % Low 36.0-48.[address] [facility] Hemoglobin [Mass/volume] in Bloodon 05-06-2024 Hemoglobin (Bld) [Mass/Vol] 11.1 g/dL Low 12.0-16.[address] [facility] Laboratory - Chemistry and C hemistry - challengeon 05-06-2024 Albumin [Mass/Vol] 2.5 g/dL Low 3.4-5.0 [facility] ALP [Catalytic activity/Vol] 75 U/L 46-[address] [facility] ALT [Catalytic activity/Vol] 16 U/L 14-[address] [facility] AST [Catalytic activity/Vol] 11 U/L Low 15-[address] [facility] Bilirubin [Mass/Vol] 0.4 mg/dL 0.2-1.0 [facility] Calcium [Mass/Vol] 8.4 mg/dL Low 8.5-10.1 [facility] Chloride [Moles/Vol] 107 mmol/L 98-107 [facility] CO2 [Moles/Vol] 25.7 mmol/L 21.0-32.0 [facility] Creatinine [Mass/Vol] 1.58 mg/dL High 0.55-1.02 [facility] GFR/1.73 sq M.predicted MDRD (S/P/Bld) [Vol rate/Area] 38 mL/min/{1.73_m2} Low >=[address] [facility] Glucose [Mass/Vol] 146 mg/dL High 74-106 [facility] Magnesium [Mass/Vol] 1.6 mg/dL Low 1.8-2.4 [facility] Natriuretic peptide B (Bld) [Mass/Vol] 2762.0 pg/mL High <=1800.[address] [facility] Comment on above: RESULTS CALLED TO CLARITZA SELLERS RN @BY Alla Venegas at 0557 Potassium [Moles/Vol] 4.1 mmol/L 3.5-5.1 [facility] Protein [Mass/Vol] 6.8 g/dL 6.4-8.2 [facility] Sodium [Moles/Vol] 141 mmol/L 136-145 [facility] Urea nitrogen [Mass/Vol] 49.0 mg/dL High 7.0-18.[address] [facility] Urea nitrogen/Creatinine [Mass ratio] 31.0 mg/mg [facility] Laboratory - Hematology and Cell countson 05-06-2024 Immature granulocytes/100 WBC (Bld) 0.1 % 0.0-0.[address] [facility] Leukocytes [#/volume] correc gali for nucleated erythrocytes in Blood by Automated counon 05-06-2024 WBC corrected for nucl RBC Auto (Bld) [#/Vol] 6.7 10 3/uL 4.0-11.[address] [facility] Lymphocytes Auto (Bld) [#/Vo l]on 05-06-2024 Lymphocytes (Bld) [#/Vol] 1.5 10 3/uL 1.2-3.[address] [facility] Lymphocytes/100 WBC Auto (Bl d)on 05-06-2024 Lymphocytes/100 WBC (Bld) 21.8 % 20.5-60.[address] [facility] MCH Auto (RBC) [Entitic mass ]on 05-06-2024 MCH (RBC) [Entitic mass] 29.0 pg 26.7-34.[address] [facility] MCHC Auto (RBC) [Mass/Vol]on 05-06-2024 MCHC (RBC) [Mass/Vol] 32.1 g/dL 29.9-35.2 [facility] MCV Auto (RBC) [Entitic vol] on 05-06-2024 MCV (RBC) [Entitic vol] 90.3 fL 81.0-99.0 [facility] Monocytes Auto (Bld) [#/Vol] on 05-06-2024 Monocytes (Bld) [#/Vol] 0.7 10 3/uL 0.3-0.[address] [facility] Monocytes/100 WBC Auto (Bld) on 05-06-2024 Monocytes/100 WBC (Bld) 10.6 % 1.7-12.0 [facility] Neutrophils Auto (Bld) [#/Vo l]on 05-06-2024 Neutrophils (Bld) [#/Vol] 4.3 10 3/uL 1.4-6.[address] [facility] Neutrophils/100 WBC Auto (Bl d)on 05-06-2024 Neutrophils/100 WBC (Bld) 63.9 % 43.0-75.[address] [facility] No Panel Informationon 05-06 Eosinophils # (Auto) 0.2 10 3/uL 0.0-0.7 [facility] Immature Granulocyte # (Auto) 0.01 10 3/uL 0.00-0.[address] [facility] Troponin I High Sensitivity 13.2 pg/mL 4.0-51.[address] [facility] Comment on above: CUT-OFF POINTS HAVE [...] AND CLINICAL INFORMATION. 2762.0 pg/mL High <=1800.[address] [facility] 13.2 pg/mL 4.0-51.[address] [facility] 1.6 mg/dL Low 1.8-2.[address] [facility] 2.5 g/dL Low 3.4-5.[address] [facility] 0.2 10 3/uL 0.0-0.[address] [facility] 75 U/L 46-[address] [facility] 16 U/L 14-[address] [facility] 11 U/L Low 15-[address] [facility] [address] [facility] 0.01 10 3/uL 0.00-0.[address] [facility] 49.0 mg/dL High 7.0-18.[address] [facility] 0.1 % 0.0-0.[address] [facility] 8.4 mg/dL Low 8.5-10.[address] [facility] 107 mmol/L 98-[address] [facility] 25.7 mmol/L 21.0-32.[address] [facility] 1.58 mg/dL High 0.55-1.[address] [facility] 38 Low >=[address] [facility] 146 mg/dL High 74-[address] [facility] 4.1 mmol/L 3.5-5.[address] [facility] 141 mmol/L 136-[address] [facility] 0.4 mg/dL 0.2-1.[address] [facility] 6.8 g/dL 6.4-8.[address] [facility] Platelet mean volume Auto (B ld) [Entitic vol]on 05-06-2024 Platelet mean volume (Bld) [Entitic vol] 11.3 fL 9.5-13.[address] [facility] Platelets Auto (Bld) [#/Vol] on 05-06-2024 Platelets (Bld) [#/Vol] 146 10 3/uL Low 150-[address] [facility] RBC Auto (Bld) [#/Vol]on RBC (Bld) [#/Vol] 3.83 10 6/uL Low 4.20-5.40 [facility] Serum or plasma albumin/glob ulin mass ratioon 05-06-2024 Albumin/Globulin [Mass ratio] 0.6 {ratio} [facility] Serum or plasma anion gap de terminationon 05-06-2024 Anion gap [Moles/Vol] 12.4 mmol/L [facility] Basophils Auto (Bld) [#/Vol] on 05-05-2024 Basophils (Bld) [#/Vol] 0.1 10 3/uL 0.0-0.[address] [facility] Basophils/100 WBC Auto (Bld) on 05-05-2024 Basophils/100 WBC (Bld) 0.9 % 0.2-2.0 [facility] Eosinophils/100 WBC Auto (Bl d)on 05-05-2024 Eosinophils/100 WBC (Bld) 1.9 % 0.9-7.[address] [facility] Erythrocyte distribution wid th Auto (RBC) [Ratio]on 05-05-2024 Erythrocyte distribution width (RBC) [Ratio] 13.4 % 11.0-15.[address] [facility] Estimated glomerular filtrat ion rate (GFR) non- Americanon 05-05-2024 GFR/1.73 sq M.predicted among non-blacks MDRD (S/P/Bld) [Vol rate/Area] 29 mL/min/{1.73_m2} Low >=[address] [facility] Globulin Calc (S) [Mass/Vol] on 05-05-2024 Globulin (S) [Mass/Vol] 4.4 g/dL [facility] Hematocrit Auto (Bld) [Volum e fraction]on 05-05-2024 Hematocrit (Bld) [Volume fraction] 33.8 % Low 36.0-48.[address] [facility] Hemoglobin [Mass/volume] in Bloodon 05-05-2024 Hemoglobin (Bld) [Mass/Vol] 11.1 g/dL Low 12.0-16.[address] [facility] Laboratory - Chemistry and C hemistry - challengeon 05-05-2024 Albumin [Mass/Vol] 2.6 g/dL Low 3.4-5.0 [facility] ALP [Catalytic activity/Vol] 74 U/L 46-[address] [facility] ALT [Catalytic activity/Vol] 17 U/L 14-[address] [facility] AST [Catalytic activity/Vol] 12 U/L Low 15-[address] [facility] Bilirubin [Mass/Vol] 0.4 mg/dL 0.2-1.0 [facility] Calcium [Mass/Vol] 6.1 mg/dL Low 8.5-10.1 [facility] Chloride [Moles/Vol] 105 mmol/L 98-107 [facility] CO2 [Moles/Vol] 24.1 mmol/L 21.0-32.0 [facility] Creatinine [Mass/Vol] 1.71 mg/dL High 0.55-1.02 [facility] GFR/1.73 sq M.predicted MDRD (S/P/Bld) [Vol rate/Area] 35 mL/min/{1.73_m2} Low >=[address] [facility] Glucose [Mass/Vol] 202 mg/dL High 74-106 [facility] Magnesium [Mass/Vol] 1.5 mg/dL Low 1.8-2.4 [facility] Natriuretic peptide B (Bld) [Mass/Vol] 2725.0 pg/mL High <=1800.[address] [facility] Comment on above: RESULTS CALLED TO Frances Bryant (Austyn)@BY Franchesca Huynh MLT at 0547 Potassium [Moles/Vol] 5.9 mmol/L High 3.5-5.1 [facility] Protein [Mass/Vol] 7.0 g/dL 6.4-8.2 [facility] Sodium [Moles/Vol] 139 mmol/L 136-145 [facility] Urea nitrogen [Mass/Vol] 69.0 mg/dL High 7.0-18.[address] [facility] Urea nitrogen/Creatinine [Mass ratio] 40.4 mg/mg [facility] Laboratory - Hematology and Cell countson 05-05-2024 Immature granulocytes/100 WBC (Bld) 0.3 % 0.0-0.[address] [facility] Leukocytes [#/volume] correc gali for nucleated erythrocytes in Blood by Automated counon 05-05-2024 WBC corrected for nucl RBC Auto (Bld) [#/Vol] 6.9 10 3/uL 4.0-11.[address] [facility] Lymphocytes Auto (Bld) [#/Vo l]on 05-05-2024 Lymphocytes (Bld) [#/Vol] 1.2 10 3/uL 1.2-3.[address] [facility] Lymphocytes/100 WBC Auto (Bl d)on 05-05-2024 Lymphocytes/100 WBC (Bld) 18.0 % Low 20.5-60.[address] [facility] MCH Auto (RBC) [Entitic mass ]on 05-05-2024 MCH (RBC) [Entitic mass] 29.3 pg 26.7-34.[address] [facility] MCHC Auto (RBC) [Mass/Vol]on 05-05-2024 MCHC (RBC) [Mass/Vol] 32.8 g/dL 29.9-35.2 [facility] MCV Auto (RBC) [Entitic vol] on 05-05-2024 MCV (RBC) [Entitic vol] 89.2 fL 81.0-99.0 [facility] Monocytes Auto (Bld) [#/Vol] on 05-05-2024 Monocytes (Bld) [#/Vol] 0.6 10 3/uL 0.3-0.[address] [facility] Monocytes/100 WBC Auto (Bld) on 05-05-2024 Monocytes/100 WBC (Bld) 8.7 % 1.7-12.0 [facility] Neutrophils Auto (Bld) [#/Vo l]on 05-05-2024 Neutrophils (Bld) [#/Vol] 4.8 10 3/uL 1.4-6.[address] [facility] Neutrophils/100 WBC Auto (Bl d)on 05-05-2024 Neutrophils/100 WBC (Bld) 70.2 % 43.0-75.[address] [facility] No Panel Informationon 05-05 Eosinophils # (Auto) 0.1 10 3/uL 0.0-0.7 [facility] Immature Granulocyte # (Auto) 0.02 10 3/uL 0.00-0.[address] [facility] Troponin I High Sensitivity 14.0 pg/mL 4.0-51.[address] [facility] Comment on above: CUT-OFF POINTS HAVE [...] AND CLINICAL INFORMATION. 2725.0 pg/mL High <=1800.[address] [facility] 14.0 pg/mL 4.0-51.[address] [facility] 1.5 mg/dL Low 1.8-2.[address] [facility] 2.6 g/dL Low 3.4-5.[address] [facility] 0.1 10 3/uL 0.0-0.[address] [facility] 74 U/L 46-[address] [facility] 17 U/L 14-[address] [facility] 12 U/L Low 15-[address] [facility] [address] [facility] 0.02 10 3/uL 0.00-0.[address] [facility] 69.0 mg/dL High 7.0-18.[address] [facility] 0.3 % 0.0-0.[address] [facility] 6.1 mg/dL Low 8.5-10.[address] [facility] 105 mmol/L 98-[address] [facility] 24.1 mmol/L 21.0-32.[address] [facility] 1.71 mg/dL High 0.55-1.[address] [facility] 35 Low >=[address] [facility] 202 mg/dL High 74-[address] [facility] 5.9 mmol/L High 3.5-5.[address] [facility] 139 mmol/L 136-[address] [facility] 0.4 mg/dL 0.2-1.[address] [facility] 7.0 g/dL 6.4-8.[address] [facility] Platelet mean volume Auto (B ld) [Entitic vol]on 05-05-2024 Platelet mean volume (Bld) [Entitic vol] 11.8 fL 9.5-13.[address] [facility] Platelets Auto (Bld) [#/Vol] on 05-05-2024 Platelets (Bld) [#/Vol] 173 10 3/uL 150-[address] [facility] RBC Auto (Bld) [#/Vol]on RBC (Bld) [#/Vol] 3.79 10 6/uL Low 4.20-5.40 [facility] Serum or plasma albumin/glob ulin mass ratioon 05-05-2024 Albumin/Globulin [Mass ratio] 0.6 {ratio} [facility] Serum or plasma anion gap de terminationon 05-05-2024 Anion gap [Moles/Vol] 15.8 mmol/L Fi [facility] Basophils Auto (Bld) [#/Vol] on 05-04-2024 Basophils (Bld) [#/Vol] 0.1 10 3/uL 0.0-0.[address] [facility] Basophils/100 WBC Auto (Bld) on 05-04-2024 Basophils/100 WBC (Bld) 0.9 % 0.2-2.0 [facility] Eosinophils/100 WBC Auto (Bl d)on 05-04-2024 Eosinophils/100 WBC (Bld) 1.7 % 0.9-7.[address] [facility] Erythrocyte distribution wid th Auto (RBC) [Ratio]on 05-04-2024 Erythrocyte distribution width (RBC) [Ratio] 13.6 % 11.0-15.[address] [facility] Estimated glomerular filtrat ion rate (GFR) non- Americanon 05-04-2024 GFR/1.73 sq M.predicted among non-blacks MDRD (S/P/Bld) [Vol rate/Area] 21 mL/min/{1.73_m2} Low >=[address] [facility] Globulin Calc (S) [Mass/Vol] on 05-04-2024 Globulin (S) [Mass/Vol] 4.9 g/dL [facility] Hematocrit Auto (Bld) [Volum e fraction]on 05-04-2024 Hematocrit (Bld) [Volume fraction] 37.6 % 36.0-48.[address] [facility] Hemoglobin [Mass/volume] in Bloodon 05-04-2024 Hemoglobin (Bld) [Mass/Vol] 12.0 g/dL 12.0-16.[address] [facility] Laboratory - Chemistry and C hemistry - challengeon 05-04-2024 Bilirubin Ql (U) Negative NEGATIVE [facility] Glucose (U) [Mass/Vol] 250 mg/dL Abnormal NEGATIVE [facility] Ketones Ql (U) Negative NEGATIVE [facility] pH (U) 6.0 [pH] 5.0-9.[address] [facility] Specific gravity (U) [Rel density] 1.015 1.005-1.[address] [facility] Urobilinogen Qn (U) 0.2 {[place]'U}/dL 0.2-1.[address] [facility] Albumin [Mass/Vol] 2.8 g/dL Low 3.4-5.0 [facility] ALP [Catalytic activity/Vol] 86 U/L 46-[address] [facility] ALT [Catalytic activity/Vol] 16 U/L 14-[address] [facility] Ammonia (P) [Moles/Vol] 12 umol/L 11-32 [facility] AST [Catalytic activity/Vol] 8 U/L Low 15-37 [facility] [facility] Bilirubin [Mass/Vol] 0.4 mg/dL 0.2-1.0 [facility] Calcium [Mass/Vol] 8.8 mg/dL 8.5-10.1 [facility] Chloride [Moles/Vol] 101 mmol/L 98-107 [facility] CO2 [Moles/Vol] 22.4 mmol/L 21.0-32.0 [facility] Creatinine [Mass/Vol] 2.24 mg/dL High 0.55-1.02 [facility] GFR/1.73 sq M.predicted MDRD (S/P/Bld) [Vol rate/Area] 26 mL/min/{1.73_m2} Low >=[address] [facility] Glucose [Mass/Vol] 369 mg/dL High 74-106 [facility] Lactate [Moles/Vol] 1.2 mmol/L 0.4-2.0 [facility] Magnesium [Mass/Vol] 1.7 mg/dL Low 1.8-2.4 [facility] Natriuretic peptide B (Bld) [Mass/Vol] 2342.0 pg/mL High <=1800.[address] [facility] Comment on above: RESULTS CALLED TO RENETTA Renteria RN @BY Andrea Long, MLTat 1126 Potassium [Moles/Vol] 5.6 mmol/L High 3.5-5.1 [facility] Protein [Mass/Vol] 7.7 g/dL 6.4-8.2 [facility] Sodium [Moles/Vol] 134 mmol/L Low 136-145 [facility] T4 [Mass/Vol] 11.80 ug/dL 4.80-13.[address] [facility] TSH Qn 0.933 m[IU]/L 0.358-3.[address] [facility] Urea nitrogen [Mass/Vol] 86.0 mg/dL High 7.0-18.[address] [facility] Comment on above: RESULTS CALLED TO RENETTA Renteria RN @BY Andrea Long, MLTat 1126 Urea nitrogen/Creatinine [Mass ratio] 38.4 mg/mg [facility] Laboratory - Hematology and Cell countson 05-04-2024 Immature granulocytes/100 WBC (Bld) 0.3 % 0.0-0.[address] [facility] - Microbiology an d Antimicrobial susceptibilityOrdered By: Carl Morales on 05-04-2024 Bacteria identified Cx Nom (U) [facility] - Specimen inform ationon 05-04-2024 Appearance (U) SLIGHTLY CLOUDY Abnormal CLEAR [facility] Color (U) YELLOW YELLOW [facility] Laboratory - Urinalysison Hyaline casts LM Ql (Urine sed) RARE [facility] Leukocyte esterase Test strip Ql (U) Negative NEGATIVE [facility] Mucus Ql (Urine sed) NONE SEEN NONE SEEN [facility] Nitrite Ql (U) Negative NEGATIVE [facility] Protein Ql (U) 100 mg/dL Abnormal NEG/TRACE [facility] Leukocytes [#/volume] correc gali for nucleated erythrocytes in Blood by Automated counon 05-04-2024 WBC corrected for nucl RBC Auto (Bld) [#/Vol] 6.9 10 3/uL 4.0-11.[address] [facility] Lymphocytes Auto (Bld) [#/Vo l]on 05-04-2024 Lymphocytes (Bld) [#/Vol] 1.2 10 3/uL 1.2-3.[address] [facility] Lymphocytes/100 WBC Auto (Bl d)on 05-04-2024 Lymphocytes/100 WBC (Bld) 17.8 % Low 20.5-60.[address] [facility] MCH Auto (RBC) [Entitic mass ]on 05-04-2024 MCH (RBC) [Entitic mass] 29.3 pg 26.7-34.[address] [facility] MCHC Auto (RBC) [Mass/Vol]on 05-04-2024 MCHC (RBC) [Mass/Vol] 31.9 g/dL 29.9-35.2 [facility] MCV Auto (RBC) [Entitic vol] on 05-04-2024 MCV (RBC) [Entitic vol] 91.9 fL 81.0-99.0 [facility] Monocytes Auto (Bld) [#/Vol] on 05-04-2024 Monocytes (Bld) [#/Vol] 0.7 10 3/uL 0.3-0.[address] [facility] Monocytes/100 WBC Auto (Bld) on 05-04-2024 Monocytes/100 WBC (Bld) 10.4 % 1.7-12.0 [facility] Neutrophils Auto (Bld) [#/Vo l]on 05-04-2024 Neutrophils (Bld) [#/Vol] 4.8 10 3/uL 1.4-6.[address] [facility] Neutrophils/100 WBC Auto (Bl d)on 05-04-2024 Neutrophils/100 WBC (Bld) 68.9 % 43.0-75.[address] [facility] No Panel Informationon 05-04 Acetone Level Negative NEGATIVE [facility] Negative NEGATIVE [facility] Urine Bacteria MODERATE #/HPF Abnormal NONE SEEN [facility] Urine Culture Reflexed ALREADY ORDERED [facility] Urine Microscopic Review YES [facility] Urine Occult Blood MODERATE Abnormal NEGATIVE [facility] Urine Other Casts SEEN #/LPF Abnormal NONE SEEN [facility] Urine Other Crystals None Seen #/HPF None Seen [facility] Urine RBC 2-5 #/HPF Abnormal 0-[address] [facility] Urine Squamous Epithelial Cells FEW #/LPF Abnormal NONE/RARE [facility] Urine WBC 2-5 #/HPF Abnormal NONE SEEN [facility] ALREADY ORDERED [facility] YES [facility] SEEN #/LPF Abnormal NONE SEEN [facility] Negative NEGATIVE [facility] None Seen #/HPF None Seen [facility] MODERATE Abnormal NEGATIVE [facility] MODERATE #/HPF Abnormal NONE SEEN [facility] SLIGHTLY CLOUDY Abnormal CLEAR [facility] RARE [facility] YELLOW YELLOW [facility] NONE SEEN NONE SEEN [facility] 250 mg/dL Abnormal NEGATIVE [facility] 2-5 #/HPF Abnormal NONE SEEN [facility] FEW #/LPF Abnormal [facility] 6.0 5.0-9.[address] [facility] 100 mg/dL Abnormal NEG/TRACE [facility] 1.015 1.005-1.[address] [facility] 0.2 EU/dL 0.2-1.[address] [facility] Eosinophils # (Auto) 0.1 10 3/uL 0.0-0.7 [facility] Immature Granulocyte # (Auto) 0.02 10 3/uL 0.00-0.[address] [facility] Troponin I High Sensitivity 10.5 pg/mL 4.0-51.[address] [facility] Comment on above: CUT-OFF POINTS HAVE [...] Partial Pressure CO2 38.5 mm[Hg] Low 40.0-52.[address] [facility] Venous Blood pH 7.353 7.330-7.430 [facility] 0.933 u[iU]/mL 0.358-3.[address] [facility] 11.80 ug/dL 4.80-13.[address] [facility] 1.7 mg/dL Low 1.8-2.[address] [facility] 2342.0 pg/mL High <=1800.[address] [facility] 1.2 mmol/L 0.4-2.[address] [facility] 10.5 pg/mL 4.0-51.[address] [facility] 12 umol/L 11-[address] [facility] 38.5 mm[Hg] Low 40.0-52.[address] [facility] 7.353 7.330-7.[address] [facility] 2.8 g/dL Low 3.4-5.[address] [facility] 0.1 10 3/uL 0.0-0.[address] [facility] 86 U/L 46-[address] [facility] 16 U/L 14-[address] [facility] 8 U/L Low 15-[address] [facility] [address] [facility] 0.02 10 3/uL 0.00-0.[address] [facility] 86.0 mg/dL High 7.0-18.[address] [facility] 0.3 % 0.0-0.[address] [facility] 8.8 mg/dL 8.5-10.[address] [facility] 101 mmol/L 98-[address] [facility] 22.4 mmol/L 21.0-32.[address] [facility] 2.24 mg/dL High 0.55-1.[address] [facility] 26 Low >=[address] [facility] 369 mg/dL High 74-[address] [facility] 5.6 mmol/L High 3.5-5.[address] [facility] 134 mmol/L Low 136-[address] [facility] 0.4 mg/dL 0.2-1.[address] [facility] 7.7 g/dL 6.4-8.[address] [facility] No Panel InformationOrdered By: LAMINE SINGH on 05-04-2024 [address] [facility] Platelet mean volume Auto (B ld) [Entitic vol]on 05-04-2024 Platelet mean volume (Bld) [Entitic vol] 11.4 fL 9.5-13.[address] [facility] Platelets Auto (Bld) [#/Vol] on 05-04-2024 Platelets (Bld) [#/Vol] 160 10 3/uL 150-[address] [facility] RBC Auto (Bld) [#/Vol]on RBC (Bld) [#/Vol] 4.09 10 6/uL Low 4.20-5.40 [facility] Serum or plasma albumin/glob ulin mass ratioon 05-04-2024 Albumin/Globulin [Mass ratio] 0.6 {ratio} [facility] Serum or plasma anion gap de terminationon 05-04-2024 Anion gap [Moles/Vol] 16.2 mmol/L [facility] Basophils Auto (Bld) [#/Vol] on 05-01-2024 Basophils (Bld) [#/Vol] 0.1 10 3/uL 0.0-0.[address] [facility] Basophils/100 WBC Auto (Bld) on 05-01-2024 Basophils/100 WBC (Bld) 0.7 % 0.2-2.0 [facility] Eosinophils/100 WBC Auto (Bl d)on 05-01-2024 Eosinophils/100 WBC (Bld) 2.3 % 0.9-7.[address] [facility] Erythrocyte distribution wid th Auto (RBC) [Ratio]on 05-01-2024 Erythrocyte distribution width (RBC) [Ratio] 13.6 % 11.0-15.[address] [facility] Estimated glomerular filtrat ion rate (GFR) non- Americanon 05-01-2024 GFR/1.73 sq M.predicted among non-blacks MDRD (S/P/Bld) [Vol rate/Area] 22 mL/min/{1.73_m2} Low >=[address] [facility] Globulin Calc (S) [Mass/Vol] on 05-01-2024 Globulin (S) [Mass/Vol] 4.4 g/dL [facility] Hematocrit Auto (Bld) [Volum e fraction]on 05-01-2024 Hematocrit (Bld) [Volume fraction] 37.5 % 36.0-48.[address] [facility] Hemoglobin [Mass/volume] in Bloodon 05-01-2024 Hemoglobin (Bld) [Mass/Vol] 12.1 g/dL 12.0-16.[address] [facility] Laboratory - Chemistry and C hemistry - challengeon 05-01-2024 Calcium [Mass/Vol] 9.2 mg/dL 8.5-10.1 [facility] Chloride [Moles/Vol] 104 mmol/L 98-107 [facility] CO2 [Moles/Vol] 23.2 mmol/L 21.0-32.0 [facility] Creatinine [Mass/Vol] 2.14 mg/dL High 0.55-1.02 [facility] GFR/1.73 sq M.predicted MDRD (S/P/Bld) [Vol rate/Area] 27 mL/min/{1.73_m2} Low >=[address] [facility] Glucose [Mass/Vol] 220 mg/dL High 74-106 [facility] Potassium [Moles/Vol] 5.3 mmol/L High 3.5-5.1 [facility] Sodium [Moles/Vol] 134 mmol/L Low 136-145 [facility] Urea nitrogen [Mass/Vol] 87.0 mg/dL High 7.0-18.[address] [facility] Comment on above: RESULTS CALLED TO Klaus Michaels RN @BY Sury French [id number] Urea nitrogen/Creatinine [Mass ratio] 40.7 mg/mg [facility] Albumin [Mass/Vol] 2.8 g/dL Low 3.4-5.0 [facility] ALP [Catalytic activity/Vol] 80 U/L 46-[address] [facility] ALT [Catalytic activity/Vol] 16 U/L 14-[address] [facility] AST [Catalytic activity/Vol] 11 U/L Low 15-[address] [facility] Bilirubin [Mass/Vol] 0.4 mg/dL 0.2-1.0 [facility] Natriuretic peptide B (Bld) [Mass/Vol] 1624.0 pg/mL <=1800.[address] [facility] Protein [Mass/Vol] 7.2 g/dL 6.4-8.2 [facility] Laboratory - Hematology and Cell countson 05-01-2024 Immature granulocytes/100 WBC (Bld) 0.1 % 0.0-0.[address] [facility] Leukocytes [#/volume] correc gali for nucleated erythrocytes in Blood by Automated counon 05-01-2024 WBC corrected for nucl RBC Auto (Bld) [#/Vol] 7.4 10 3/uL 4.0-11.[address] [facility] Lymphocytes Auto (Bld) [#/Vo l]on 05-01-2024 Lymphocytes (Bld) [#/Vol] 2.2 10 3/uL 1.2-3.[address] [facility] Lymphocytes/100 WBC Auto (Bl d)on 05-01-2024 Lymphocytes/100 WBC (Bld) 29.4 % 20.5-60.[address] [facility] MCH Auto (RBC) [Entitic mass ]on 05-01-2024 MCH (RBC) [Entitic mass] 29.2 pg 26.7-34.[address] [facility] MCHC Auto (RBC) [Mass/Vol]on 05-01-2024 MCHC (RBC) [Mass/Vol] 32.3 g/dL 29.9-35.2 [facility] MCV Auto (RBC) [Entitic vol] on 05-01-2024 MCV (RBC) [Entitic vol] 90.4 fL 81.0-99.0 [facility] Monocytes Auto (Bld) [#/Vol] on 05-01-2024 Monocytes (Bld) [#/Vol] 0.9 10 3/uL High 0.3-0.[address] [facility] Monocytes/100 WBC Auto (Bld) on 05-01-2024 Monocytes/100 WBC (Bld) 11.5 % 1.7-12.0 [facility] Neutrophils Auto (Bld) [#/Vo l]on 05-01-2024 Neutrophils (Bld) [#/Vol] 4.1 10 3/uL 1.4-6.[address] [facility] Neutrophils/100 WBC Auto (Bl d)on 05-01-2024 Neutrophils/100 WBC (Bld) 56.0 % 43.0-75.[address] [facility] No Panel Informationon 05-[address] [facility] 87.0 mg/dL High 7.0-18.[address] [facility] 9.2 mg/dL 8.5-10.[address] [facility] 104 mmol/L 98-[address] [facility] 23.2 mmol/L 21.0-32.[address] [facility] 2.14 mg/dL High 0.55-1.[address] [facility] 27 Low >=[address] [facility] 220 mg/dL High 74-[address] [facility] 5.3 mmol/L High 3.5-5.[address] [facility] 134 mmol/L Low 136-[address] [facility] Eosinophils # (Auto) 0.2 10 3/uL 0.0-0.7 [facility] Immature Granulocyte # (Auto) 0.01 10 3/uL 0.00-0.[address] [facility] 1624.0 pg/mL <=1800.[address] [facility] 2.8 g/dL Low 3.4-5.[address] [facility] 0.2 10 3/uL 0.0-0.[address] [facility] 80 U/L 46-[address] [facility] 16 U/L 14-[address] [facility] 11 U/L Low 15-[address] [facility] 0.01 10 3/uL 0.00-0.[address] [facility] 0.1 % 0.0-0.[address] [facility] 0.4 mg/dL 0.2-1.[address] [facility] 7.2 g/dL 6.4-8.[address] [facility] Platelet mean volume Auto (B ld) [Entitic vol]on 05-01-2024 Platelet mean volume (Bld) [Entitic vol] 11.6 fL 9.5-13.[address] [facility] Platelets Auto (Bld) [#/Vol] on 05-01-2024 Platelets (Bld) [#/Vol] 151 10 3/uL 150-[address] [facility] RBC Auto (Bld) [#/Vol]on RBC (Bld) [#/Vol] 4.15 10 6/uL Low 4.20-5.40 [facility] Serum or plasma albumin/glob ulin mass ratioon 05-01-2024 Albumin/Globulin [Mass ratio] 0.6 {ratio} [facility] Serum or plasma anion gap de terminationon 05-01-2024 Anion gap [Moles/Vol] 12.1 mmol/L [facility] Basophils Auto (Bld) [#/Vol] on 04-30-2024 Basophils (Bld) [#/Vol] 0.1 10 3/uL 0.0-0.[address] [facility] Basophils/100 WBC Auto (Bld) on 04-30-2024 Basophils/100 WBC (Bld) 0.9 % 0.2-2.0 [facility] Eosinophils/100 WBC Auto (Bl d)on 04-30-2024 Eosinophils/100 WBC (Bld) 2.4 % 0.9-7.[address] [facility] Erythrocyte distribution wid th Auto (RBC) [Ratio]on 04-30-2024 Erythrocyte distribution width (RBC) [Ratio] 13.5 % 11.0-15.[address] [facility] Estimated glomerular filtrat ion rate (GFR) non- Americanon 04-30-2024 GFR/1.73 sq M.predicted among non-blacks MDRD (S/P/Bld) [Vol rate/Area] 15 mL/min/{1.73_m2} Low >=[address] [facility] Fibrin D-dimer [Presence] in Platelet poor plasma by Latex agglutinationon 04-30-2024 Fibrin D-dimer LA Ql (PPP) 0.24 mg/L FEU <=0.[address] [facility] Comment on above: Increases in D-Dimer [...] Hematocrit (Bld) [Volume fraction] 38.6 % 36.0-48.[address] [facility] Hemoglobin [Mass/volume] in Bloodon 04-30-2024 Hemoglobin (Bld) [Mass/Vol] 12.5 g/dL 12.0-16.[address] [facility] Laboratory - Chemistry and C hemistry - challengeon 04-30-2024 Calcium [Mass/Vol] 9.0 mg/dL 8.5-10.1 [facility] Chloride [Moles/Vol] 100 mmol/L 98-107 [facility] CO2 [Moles/Vol] 24.4 mmol/L 21.0-32.0 [facility] Creatinine [Mass/Vol] 3.02 mg/dL High 0.55-1.02 [facility] GFR/1.73 sq M.predicted MDRD (S/P/Bld) [Vol rate/Area] 18 mL/min/{1.73_m2} Low >=[address] [facility] Glucose [Mass/Vol] 271 mg/dL High 74-106 [facility] Magnesium [Mass/Vol] 1.8 mg/dL 1.8-2.4 [facility] Natriuretic peptide B (Bld) [Mass/Vol] 1485.0 pg/mL <=1800.[address] [facility] Potassium [Moles/Vol] 5.3 mmol/L High 3.5-5.1 [facility] Sodium [Moles/Vol] 133 mmol/L Low 136-145 [facility] Urea nitrogen [Mass/Vol] 99.0 mg/dL High 7.0-18.[address] [facility] Comment on above: RESULTS CALLED TO Yoel WADE)@BY Franchesca Huynh MLT at 0603 Urea nitrogen/Creatinine [Mass ratio] 32.8 mg/mg [facility] Laboratory - Hematology and Cell countson 04-30-2024 Immature granulocytes/100 WBC (Bld) 0.1 % 0.0-0.[address] [facility] Leukocytes [#/volume] correc gali for nucleated erythrocytes in Blood by Automated counon 04-30-2024 WBC corrected for nucl RBC Auto (Bld) [#/Vol] 7.5 10 3/uL 4.0-11.[address] [facility] Lymphocytes Auto (Bld) [#/Vo l]on 04-30-2024 Lymphocytes (Bld) [#/Vol] 2.1 10 3/uL 1.2-3.[address] [facility] Lymphocytes/100 WBC Auto (Bl d)on 04-30-2024 Lymphocytes/100 WBC (Bld) 27.8 % 20.5-60.[address] [facility] MCH Auto (RBC) [Entitic mass ]on 04-30-2024 MCH (RBC) [Entitic mass] 29.6 pg 26.7-34.[address] [facility] MCHC Auto (RBC) [Mass/Vol]on 04-30-2024 MCHC (RBC) [Mass/Vol] 32.4 g/dL 29.9-35.2 [facility] MCV Auto (RBC) [Entitic vol] on 04-30-2024 MCV (RBC) [Entitic vol] 91.5 fL 81.0-99.0 [facility] Monocytes Auto (Bld) [#/Vol] on 04-30-2024 Monocytes (Bld) [#/Vol] 0.8 10 3/uL 0.3-0.[address] [facility] Monocytes/100 WBC Auto (Bld) on 04-30-2024 Monocytes/100 WBC (Bld) 10.0 % 1.7-12.0 [facility] Neutrophils Auto (Bld) [#/Vo l]on 04-30-2024 Neutrophils (Bld) [#/Vol] 4.4 10 3/uL 1.4-6.[address] [facility] Neutrophils/100 WBC Auto (Bl d)on 04-30-2024 Neutrophils/100 WBC (Bld) 58.8 % 43.0-75.[address] [facility] No Panel Informationon 04-30 Troponin I High Sensitivity 12.6 pg/mL 4.0-51.[address] [facility] Comment on above: CUT-OFF POINTS HAVE [...] DIAGNOSTIC AND CLINICAL INFORMATION. 1.8 mg/dL 1.8-2.[address] [facility] 1485.0 pg/mL <=1800.[address] [facility] 12.6 pg/mL 4.0-51.[address] [facility] 32.[address] [facility] 99.0 mg/dL High 7.0-18.[address] [facility] 9.0 mg/dL 8.5-10.[address] [facility] 100 mmol/L 98-[address] [facility] 24.4 mmol/L 21.0-32.[address] [facility] 3.02 mg/dL High 0.55-1.[address] [facility] 18 Low >=[address] [facility] 271 mg/dL High 74-[address] [facility] 5.3 mmol/L High 3.5-5.[address] [facility] 133 mmol/L Low 136-[address] [facility] Eosinophils # (Auto) 0.2 10 3/uL 0.0-0.7 [facility] Immature Granulocyte # (Auto) 0.01 10 3/uL 0.00-0.[address] [facility] 0.2 10 3/uL 0.0-0.[address] [facility] 0.01 10 3/uL 0.00-0.[address] [facility] 0.1 % 0.0-0.[address] [facility] Platelet mean volume Auto (B ld) [Entitic vol]on 04-30-2024 Platelet mean volume (Bld) [Entitic vol] 12.2 fL 9.5-13.[address] [facility] Platelets Auto (Bld) [#/Vol] on 04-30-2024 Platelets (Bld) [#/Vol] 221 10 3/uL 150-[address] [facility] RBC Auto (Bld) [#/Vol]on RBC (Bld) [#/Vol] 4.22 10 6/uL 4.20-5.40 [facility] Serum or plasma anion gap de terminationon 04-30-2024 Anion gap [Moles/Vol] 13.9 [facility] Bas[facility] Auto (Bld) [#/Vol] on 03-28-2024 Basophils (Bld) [#/Vol] 0.1 10 3/uL 0.0-0.[address] [facility] Basophils/100 WBC Auto (Bld) on 03-28-2024 Basophils/100 WBC (Bld) 0.9 % 0.2-2.0 [facility] Eosinophils/100 WBC Auto (Bl d)on 03-28-2024 Eosinophils/100 WBC (Bld) 1.7 % 0.9-7.[address] [facility] Erythrocyte distribution wid th Auto (RBC) [Ratio]on 03-28-2024 Erythrocyte distribution width (RBC) [Ratio] 14.2 % 11.0-15.[address] [facility] Estimated glomerular filtrat ion rate (GFR) non- Americanon 03-28-2024 GFR/1.73 sq M.predicted among non-blacks MDRD (S/P/Bld) [Vol rate/Area] 39 mL/min/{1.73_m2} Low >=[address] [facility] Globulin Calc (S) [Mass/Vol] on 03-28-2024 Globulin (S) [Mass/Vol] 4.8 g/dL [facility] Hematocrit Auto (Bld) [Volum e fraction]on 03-28-2024 Hematocrit (Bld) [Volume fraction] 40.0 % 36.0-48.[address] [facility] Hemoglobin [Mass/volume] in Bloodon 03-28-2024 Hemoglobin (Bld) [Mass/Vol] 12.6 g/dL 12.0-16.[address] [facility] Laboratory - Chemistry and C hemistry - challengeon 03-28-2024 Albumin [Mass/Vol] 2.5 g/dL Low 3.4-5.0 [facility] ALP [Catalytic activity/Vol] 93 U/L 46-[address] [facility] ALT [Catalytic activity/Vol] 9 U/L Low 14-[address] [facility] AST [Catalytic activity/Vol] 10 U/L Low 15-[address] [facility] Bilirubin [Mass/Vol] 0.9 mg/dL 0.2-1.0 [facility] Calcium [Mass/Vol] 8.5 mg/dL 8.5-10.1 [facility] Chloride [Moles/Vol] 96 mmol/L Low 98-107 [facility] CO2 [Moles/Vol] 27.1 mmol/L 21.0-32.0 [facility] Creatinine [Mass/Vol] 1.33 mg/dL High 0.55-1.02 [facility] GFR/1.73 sq M.predicted MDRD (S/P/Bld) [Vol rate/Area] 47 mL/min/{1.73_m2} Low >=[address] [facility] Glucose [Mass/Vol] 261 mg/dL High 74-106 [facility] Magnesium [Mass/Vol] 1.8 mg/dL 1.8-2.4 [facility] Natriuretic peptide B (Bld) [Mass/Vol] 3338.0 pg/mL High <=1800.[address] [facility] Comment on above: RESULTS CALLED TO Claritza WADE)@BY Franchesca Huynh MLT at 0554 Potassium [Moles/Vol] 3.8 mmol/L 3.5-5.1 [facility] Protein [Mass/Vol] 7.3 g/dL 6.4-8.2 [facility] Sodium [Moles/Vol] 133 mmol/L Low 136-145 [facility] Urea nitrogen [Mass/Vol] 36.0 mg/dL High 7.0-18.[address] [facility] Urea nitrogen/Creatinine [Mass ratio] 27.1 mg/mg [facility] Laboratory - Hematology and Cell countson 03-28-2024 Immature granulocytes/100 WBC (Bld) 0.4 % 0.0-0.[address] [facility] Leukocytes [#/volume] correc gali for nucleated erythrocytes in Blood by Automated counon 03-28-2024 WBC corrected for nucl RBC Auto (Bld) [#/Vol] 8.4 10 3/uL 4.0-11.[address] [facility] Lymphocytes Auto (Bld) [#/Vo l]on 03-28-2024 Lymphocytes (Bld) [#/Vol] 1.8 10 3/uL 1.2-3.[address] [facility] Lymphocytes/100 WBC Auto (Bl d)on 03-28-2024 Lymphocytes/100 WBC (Bld) 21.4 % 20.5-60.[address] [facility] MCH Auto (RBC) [Entitic mass ]on 03-28-2024 MCH (RBC) [Entitic mass] 29.0 pg 26.7-34.[address] [facility] MCHC Auto (RBC) [Mass/Vol]on 03-28-2024 MCHC (RBC) [Mass/Vol] 31.5 g/dL 29.9-35.2 [facility] MCV Auto (RBC) [Entitic vol] on 03-28-2024 MCV (RBC) [Entitic vol] 92.0 fL 81.0-99.0 [facility] Monocytes Auto (Bld) [#/Vol] on 03-28-2024 Monocytes (Bld) [#/Vol] 0.8 10 3/uL 0.3-0.[address] [facility] Monocytes/100 WBC Auto (Bld) on 03-28-2024 Monocytes/100 WBC (Bld) 9.7 % 1.7-12.0 [facility] Neutrophils Auto (Bld) [#/Vo l]on 03-28-2024 Neutrophils (Bld) [#/Vol] 5.6 10 3/uL 1.4-6.[address] [facility] Neutrophils/100 WBC Auto (Bl d)on 03-28-2024 Neutrophils/100 WBC (Bld) 65.9 % 43.0-75.[address] [facility] No Panel Informationon 03-28 Eosinophils # (Auto) 0.1 10 3/uL 0.0-0.7 [facility] Immature Granulocyte # (Auto) 0.03 10 3/uL 0.00-0.[address] [facility] 3338.0 pg/mL High <=1800.[address] [facility] 1.8 mg/dL 1.8-2.[address] [facility] 2.5 g/dL Low 3.4-5.[address] [facility] 0.1 10 3/uL 0.0-0.[address] [facility] 93 U/L 46-[address] [facility] 9 U/L Low 14-[address] [facility] 10 U/L Low 15-[address] [facility] [address] [facility] 0.03 10 3/uL 0.00-0.[address] [facility] 36.0 mg/dL High 7.0-18.[address] [facility] 0.4 % 0.0-0.[address] [facility] 8.5 mg/dL 8.5-10.[address] [facility] 96 mmol/L Low 98-[address] [facility] 27.1 mmol/L 21.0-32.[address] [facility] 1.33 mg/dL High 0.55-1.[address] [facility] 47 Low >=[address] [facility] 261 mg/dL High 74-[address] [facility] 3.8 mmol/L 3.5-5.[address] [facility] 133 mmol/L Low 136-[address] [facility] 0.9 mg/dL 0.2-1.[address] [facility] 7.3 g/dL 6.4-8.[address] [facility] Platelet mean volume Auto (B ld) [Entitic vol]on 03-28-2024 Platelet mean volume (Bld) [Entitic vol] 10.5 fL 9.5-13.[address] [facility] Platelets Auto (Bld) [#/Vol] on 03-28-2024 Platelets (Bld) [#/Vol] 197 10 3/uL 150-[address] [facility] RBC Auto (Bld) [#/Vol]on RBC (Bld) [#/Vol] 4.35 10 6/uL 4.20-5.40 [facility] Serum or plasma albumin/glob ulin mass ratioon 03-28-2024 Albumin/Globulin [Mass ratio] 0.5 {ratio} [facility] Serum or plasma anion gap de terminationon 03-28-2024 Anion gap [Moles/Vol] 13.7 mmol[facility] Basophils Auto (Bld) [#/Vol] on 03-27-2024 Basophils (Bld) [#/Vol] 0.1 10 3/uL 0.0-0.[address] [facility] Basophils/100 WBC Auto (Bld) on 03-27-2024 Basophils/100 WBC (Bld) 0.8 % 0.2-2.0 [facility] Eosinophils/100 WBC Auto (Bl d)on 03-27-2024 Eosinophils/100 WBC (Bld) 1.1 % 0.9-7.[address] [facility] Erythrocyte distribution wid th Auto (RBC) [Ratio]on 03-27-2024 Erythrocyte distribution width (RBC) [Ratio] 14.2 % 11.0-15.[address] [facility] Estimated glomerular filtrat ion rate (GFR) non- Americanon 03-27-2024 GFR/1.73 sq M.predicted among non-blacks MDRD (S/P/Bld) [Vol rate/Area] 44 mL/min/{1.73_m2} Low >=[address] [facility] Globulin Calc (S) [Mass/Vol] on 03-27-2024 Globulin (S) [Mass/Vol] 4.6 g/dL [facility] Glucose mean value [Mass/vol ume] in Blood Estimated from glycated hemoglobinon 03-27-2024 Average glucose Estimated from glycated hemoglobin (Bld) [Mass/Vol] 275 mg/dL [facility] Hematocrit Auto (Bld) [Volum e fraction]on 03-27-2024 Hematocrit (Bld) [Volume fraction] 37.4 % 36.0-48.[address] [facility] Hem[facility] [Mass/volume] in Bloodon 03-27-2024 Hemoglobin (Bld) [Mass/Vol] 12.1 g/dL 12.0-16.[address] [facility] - Chemistry and C hemistry - challengeon 03-27-2024 Albumin [Mass/Vol] 2.6 g/dL Low 3.4-5.0 [facility] ALP [Catalytic activity/Vol] 89 U/L 46-[address] [facility] ALT [Catalytic activity/Vol] 12 U/L Low 14-[address] [facility] AST [Catalytic activity/Vol] 9 U/L Low 15-[address] [facility] Bilirubin [Mass/Vol] 0.9 mg/dL 0.2-1.0 [facility] Calcium [Mass/Vol] 9.1 mg/dL 8.5-10.1 [facility] Chloride [Moles/Vol] 99 mmol/L 98-107 [facility] CO2 [Moles/Vol] 28.8 mmol/L 21.0-32.0 [facility] Creatinine [Mass/Vol] 1.19 mg/dL High 0.55-1.02 [facility] GFR/1.73 sq M.predicted MDRD (S/P/Bld) [Vol rate/Area] 53 mL/min/{1.73_m2} Low >=[address] [facility] Glucose [Mass/Vol] 273 mg/dL High 74-106 [facility] Magnesium [Mass/Vol] 1.7 mg/dL Low 1.8-2.4 [facility] Natriuretic peptide B (Bld) [Mass/Vol] 4572.0 pg/mL High <=1800.[address] [facility] Comment on above: RESULTS CALLED TO SA RA MIGUEL RN @BY Alla Kevin [id number] Potassium [Moles/Vol] 3.6 mmol/L 3.5-5.1 [facility] Protein [Mass/Vol] 7.2 g/dL 6.4-8.2 [facility] Sodium [Moles/Vol] 135 mmol/L Low 136-145 [facility] Urea nitrogen [Mass/Vol] 34.0 mg/dL High 7.0-18.[address] [facility] Urea nitrogen/Creatinine [Mass ratio] 28.6 mg/mg [facility] - Hematology and Cell countson 03-27-2024 HbA1c (Bld) [Mass fraction] 11.2 % High 4.5-6.[address] [facility] Comment on above: ADA RECOMMENDED LIMI T 4.0 - 6.0ADA THERAPEUTIC TARGET < 7.0ACTION SUGGESTED> 7.0 Immature granulocytes/100 WBC (Bld) 0.3 % 0.0-0.[address] [facility] Leukocytes [#/volume] correc gali for nucleated erythrocytes in Blood by Automated counon 03-27-2024 WBC corrected for nucl RBC Auto (Bld) [#/Vol] 9.7 10 3/uL 4.0-11.[address] [facility] Lymphocytes Auto (Bld) [#/Vo l]on 03-27-2024 Lymphocytes (Bld) [#/Vol] 1.3 10 3/uL 1.2-3.[address] [facility] Lymphocytes/100 WBC Auto (Bl d)on 03-27-2024 Lymphocytes/100 WBC (Bld) 13.3 % Low 20.5-60.[address] [facility] MCH Auto (RBC) [Entitic mass ]on 03-27-2024 MCH (RBC) [Entitic mass] 29.2 pg 26.7-34.[address] [facility] MCHC Auto (RBC) [Mass/Vol]on 03-27-2024 MCHC (RBC) [Mass/Vol] 32.4 g/dL 29.9-35.2 [facility] MCV Auto (RBC) [Entitic vol] on 03-27-2024 MCV (RBC) [Entitic vol] 90.3 fL 81.0-99.0 [facility] Monocytes Auto (Bld) [#/Vol] on 03-27-2024 Monocytes (Bld) [#/Vol] 0.8 10 3/uL 0.3-0.[address] [facility] Monocytes/100 WBC Auto (Bld) on 03-27-2024 Monocytes/100 WBC (Bld) 8.4 % 1.7-12.0 [facility] Neutrophils Auto (Bld) [#/Vo l]on 03-27-2024 Neutrophils (Bld) [#/Vol] 7.4 10 3/uL High 1.4-6.[address] [facility] Neutrophils/100 WBC Auto (Bl d)on 03-27-2024 Neutrophils/100 WBC (Bld) 76.1 % High 43.0-75.[address] [facility] No Panel Informationon 03-27 Eosinophils # (Auto) 0.1 10 3/uL 0.0-0.7 [facility] Immature Granulocyte # (Auto) 0.03 10 3/uL 0.00-0.[address] [facility] 4572.0 pg/mL High <=1800.[address] [facility] 1.7 mg/dL Low 1.8-2.[address] [facility] 11.2 % High 4.5-6.[address] [facility] 2.6 g/dL Low 3.4-5.[address] [facility] 0.1 10 3/uL 0.0-0.[address] [facility] 89 U/L 46-[address] [facility] 12 U/L Low 14-[address] [facility] 9 U/L Low 15-[address] [facility] [address] [facility] 0.03 10 3/uL 0.00-0.[address] [facility] 34.0 mg/dL High 7.0-18.[address] [facility] 0.3 % 0.0-0.[address] [facility] 9.1 mg/dL 8.5-10.[address] [facility] 99 mmol/L 98-[address] [facility] 28.8 mmol/L 21.0-32.[address] [facility] 1.19 mg/dL High 0.55-1.[address] [facility] 53 Low >=[address] [facility] 273 mg/dL High 74-[address] [facility] 3.6 mmol/L 3.5-5.[address] [facility] 135 mmol/L Low 136-[address] [facility] 0.9 mg/dL 0.2-1.[address] [facility] 7.2 g/dL 6.4-8.[address] [facility] Platelet mean volume Auto (B ld) [Entitic vol]on 03-27-2024 Platelet mean volume (Bld) [Entitic vol] 10.6 fL 9.5-13.5 [facility] Platelets Auto (Bld) [#/Vol] on 03-27-2024 Platelets (Bld) [#/Vol] 204 10 3/uL 150-[address] [facility] RBC Auto (Bld) [#/Vol]on RBC (Bld) [#/Vol] 4.14 10 6/uL Low 4.20-5.40 [facility] Serum or plasma albumin/glob ulin mass ratioon 03-27-2024 Albumin/Globulin [Mass ratio] 0.6 {ratio} [facility] Serum or plasma anion gap de terminationon 03-27-2024 Anion gap [Moles/Vol] 10.8 mmol/L [facility] Basophils Auto (Bld) [#/Vol] on 03-26-2024 Basophils (Bld) [#/Vol] 0.1 10 3/uL 0.0-0.[address] [facility] Basophils/100 WBC Auto (Bld) on 03-26-2024 Basophils/100 WBC (Bld) 0.8 % 0.2-2.0 [facility] Eosinophils/100 WBC Auto (Bl d)on 03-26-2024 Eosinophils/100 WBC (Bld) 1.2 % 0.9-7.[address] [facility] Erythrocyte distribution wid th Auto (RBC) [Ratio]on 03-26-2024 Erythrocyte distribution width (RBC) [Ratio] 14.5 % 11.0-15.[address] [facility] Estimated glomerular filtrat ion rate (GFR) non- Americanon 03-26-2024 GFR/1.73 sq M.predicted among non-blacks MDRD (S/P/Bld) [Vol rate/Area] 46 mL/min/{1.73_m2} Low >=[address] [facility] Glucose mean value [Mass/vol ume] in Blood Estimated from glycated hemoglobinon 03-26-2024 Average glucose Estimated from glycated hemoglobin (Bld) [Mass/Vol] 275 mg/dL [facility] Hematocrit Auto (Bld) [Volum e fraction]on 03-26-2024 Hematocrit (Bld) [Volume fraction] 40.1 % 36.0-48.[address] [facility] Hemoglobin [Mass/volume] in Bloodon 03-26-2024 Hemoglobin (Bld) [Mass/Vol] 12.7 g/dL 12.0-16.[address] [facility] Laboratory - Chemistry and C hemistry - challengeon 03-26-2024 Calcium [Mass/Vol] 9.1 mg/dL 8.5-10.1 [facility] Chloride [Moles/Vol] 102 mmol/L 98-107 [facility] CO2 [Moles/Vol] 28.5 mmol/L 21.0-32.0 [facility] Creatinine [Mass/Vol] 1.14 mg/dL High 0.55-1.02 [facility] Free T4 [Mass/Vol] 1.29 ng/dL 0.76-1.46 [facility] GFR/1.73 sq M.predicted MDRD (S/P/Bld) [Vol rate/Area] 56 mL/min/{1.73_m2} Low >=[address] [facility] Glucose [Mass/Vol] 246 mg/dL High 74-106 [facility] Natriuretic peptide B (Bld) [Mass/Vol] 2890.0 pg/mL High <=1800.[address] [facility] Comment on above: RESULTS CALLED TO YOEL TAI RN @BY Alla Kunz [phone] Potassium [Moles/Vol] 4.3 mmol/L 3.5-5.1 [facility] Sodium [Moles/Vol] 136 mmol/L 136-145 [facility] TSH Qn 6.001 m[IU]/L High 0.358-3.[address] [facility] Urea nitrogen [Mass/Vol] 35.0 mg/dL High 7.0-18.[address] [facility] Urea nitrogen/Creatinine [Mass ratio] 30.7 mg/mg [facility] - Hematology and Cell countson 03-26-2024 HbA1c (Bld) [Mass fraction] 11.2 % High 4.5-6.[address] [facility] Comment on above: ADA RECOMMENDED LIMI T 4.0 - 6.0ADA THERAPEUTIC TARGET < 7.0ACTION SUGGESTED> 7.0 Immature granulocytes/100 WBC (Bld) 0.2 % 0.0-0.[address] [facility] Leukocytes [#/volume] correc gali for nucleated erythrocytes in Blood by Automated counon 03-26-2024 WBC corrected for nucl RBC Auto (Bld) [#/Vol] 8.3 10 3/uL 4.0-11.[address] [facility] Lymphocytes Auto (Bld) [#/Vo l]on 03-26-2024 Lymphocytes (Bld) [#/Vol] 1.4 10 3/uL 1.2-3.[address] [facility] Lymphocytes/100 WBC Auto (Bl d)on 03-26-2024 Lymphocytes/100 WBC (Bld) 16.5 % Low 20.5-60.[address] [facility] MCH Auto (RBC) [Entitic mass ]on 03-26-2024 MCH (RBC) [Entitic mass] 29.1 pg 26.7-34.[address] [facility] MCHC Auto (RBC) [Mass/Vol]on 03-26-2024 MCHC (RBC) [Mass/Vol] 31.7 g/dL 29.9-35.2 [facility] MCV Auto (RBC) [Entitic vol] on 03-26-2024 MCV (RBC) [Entitic vol] 92.0 fL 81.0-99.0 [facility] Monocytes Auto (Bld) [#/Vol] on 03-26-2024 Monocytes (Bld) [#/Vol] 0.7 10 3/uL 0.3-0.[address] [facility] Monocytes/100 WBC Auto (Bld) on 03-26-2024 Monocytes/100 WBC (Bld) 7.9 % 1.7-12.0 [facility] Neutrophils Auto (Bld) [#/Vo l]on 03-26-2024 Neutrophils (Bld) [#/Vol] 6.1 10 3/uL 1.4-6.[address] [facility] Neutrophils/100 WBC Auto (Bl d)on 03-26-2024 Neutrophils/100 WBC (Bld) 73.4 % 43.0-75.[address] [facility] No Panel Informationon 03-26 Eosinophils # (Auto) 0.1 10 3/uL 0.0-0.7 [facility] Immature Granulocyte # (Auto) 0.02 10 3/uL 0.00-0.[address] [facility] Troponin I High Sensitivity 12.4 pg/mL 4.0-51.[address] [facility] Comment on above: CUT-OFF POINTS HAVE [...] DIAGNOSTIC AND CLINICAL INFORMATION. 1.29 ng/dL 0.76-1.[address] [facility] 6.001 u[iU]/mL High 0.358-3.[address] [facility] 2890.0 pg/mL High <=1800.[address] [facility] 12.4 pg/mL 4.0-51.[address] [facility] 11.2 % High 4.5-6.[address] [facility] 30.[address] [facility] 35.0 mg/dL High 7.0-18.[address] [facility] 0.1 10 3/uL 0.0-0.[address] [facility] 9.1 mg/dL 8.5-10.[address] [facility] 102 mmol/L 98-[address] [facility] 28.5 mmol/L 21.0-32.[address] [facility] 1.14 mg/dL High 0.55-1.[address] [facility] 0.02 10 3/uL 0.00-0.[address] [facility] 56 Low >=[address] [facility] 0.2 % 0.0-0.[address] [facility] 246 mg/dL High 74-[address] [facility] 4.3 mmol/L 3.5-5.[address] [facility] 136 mmol/L 136-[address] [facility] Platelet mean volume Auto (B ld) [Entitic vol]on 03-26-2024 Platelet mean volume (Bld) [Entitic vol] 10.8 fL 9.5-13.[address] [facility] Platelets Auto (Bld) [#/Vol] on 03-26-2024 Platelets (Bld) [#/Vol] 225 10 3/uL 150-[address] [facility] RBC Auto (Bld) [#/Vol]on RBC (Bld) [#/Vol] 4.36 10 6/uL 4.20-5.40 [facility] Serum or plasma anion gap de terminationon 03-26-2024 Anion gap [Moles/Vol] 9.8 mmol/L [facility] MR cervical spine wo conon 0 03-13-2024 MR cervical spine wo con [facility] [place] [address] [place] [address] MRI Report Signed Patient: Joe Call MR#: [id number] 0 : 1945 Acct:[id number] Age/Sex: 78 / F ADM Date: 03/13/24 Loc: [facility] Room: Type: [facility] Attending Dr: Eloina Hussein MD Copies to: [...] Jarred Randolph M.D.03/13/2024 3:47 PM Dictation Location: [place] [address] Transcribed By: [facility] 03/13/24 1547 Dictated By: Jarred Randolph DO 03/13/24 1542 Signed By: 03/13/[address] [facility] XR pre/post mri xrayon 03-13 XR pre/post mri xray [facility] [place] [address] [place] [address] MRI Report Signed Patient: Joe Call MR#: [id number] 0 : 1945 Acct:[id number] Age/Sex: 78 / F ADM Date: 03/13/24 Loc: [facility] Room: Type: [facility] Attending Dr: Eloina Hussein MD Copies to: Eloina Mlulins MD Ordering Provider: Eloina Mullins MD Date of Service: 03/13/24 MR/MR lumbar spine wo con: M54.50 ([id number]) XR/XR pre/post mri xray: M54.50 MRI Lumbar [...] Jarred Randolph M.D.03/13/2024 3:58 PM Dictation Location: [place] [address] Transcribed By: [facility] 03/13/24 1558 Dictated By: Jarred Randolph DO 03/13/24 1551 Signed By: 03/13/24 1558 Normal [facility] Office Visiton 03-07-2024 Follow-up visit [id number] Joe Call 1945 F Date Provider Department Center 03/07/2024 RICA DEAN LOVE [facility] Family History Problem Relation Age of Onset Coronary artery disease Other Diabetes Other Polycystic kidney disease Other Family Status - Relation Status Age at Other Level of Service:19881 MS OFFICE/OUTPATIENT ESTABLISHED MOD MDM 30 MIN Reason for Visit and Comments: Follow-up [192104] - 6 month Normal [facility] Office Vis[facility] 08-17-2023 Follow-up visit [id number] Joe Call 1945 Date Provider Department Center 08/17/2023 [id number] BARNES LOVE [facility] Family History Problem Relation Age of Onset Coronary artery disease Other Diabetes Other Polycystic kidney disease Other Family Status - Relation Status Age at Other Level of Service:15366 MS OFFICE/OUTPATIENT ESTABLISHED MOD MDM 30-39 MIN Normal [facility] 36on 07-25-2023 36 Pt informed [facility] 36on 07-24-2023 37 She does not need to drink 4 bottle of water. She needs to maintain a 2 L fluid restriction. This includes all fluid not just water. In regards to sleep, I told her she would need to discuss that with her PCP. Thanks. [facility] Office Visiton 07-23-2023 Follow-up visit [id number] Joe Call 1945 F Date Provider Department Center 07/23/2023 [id number] BARNES CARD [facility] Family History Problem Relation Age of Onset Coronary artery disease Other Diabetes Other Polycystic kidney disease Other Family Status - Relation Status Age at Other Level of Service:23367 MS OFFICE/OUTPATIENT ESTABLISHED MOD MDM 30-39 MIN [facility] GI PANEL (PCR)on 03-06-2023 Adenovirus F 40/41 Not detected Normal NOT DETECTED [facility] Comment on above: Performed By: #### P OCGLUC #### [facility] [address] [place] [address] Dr. Kasia Nath Astrovirus Not detected Normal NOT DETECTED [facility] Comment on above: Performed By: #### P OCGLUC #### [facility] [address] [place] [address] [address] Kasia Nath C. Diff toxin A/B Detected Critically abnormal NOT DETECTED [facility] Comment on above: Performed By: #### P OCGLUC #### [facility] [address] [place] [address] [address] Kasia Nath Campylobacter Detected Critically abnormal NOT DETECTED [facility] Comment on above: Performed By: #### P OCGLUC #### [facility] [address] [place] [address] [address] Kasia Nath Cryptosporidium Not detected Normal NOT DETECTED [facility] Comment on above: Performed By: #### P OCGLUC #### [facility] [address] [place] [address] [address] Kasia Nath Cyclos. Cayetanensis Not detected Normal NOT DETECTED [facility] Comment on above: Performed By: #### P OCGLUC #### [facility] [address] [place] [address] Dr. Kasia Nath E. Coli O157 Not Applicable Normal Not Applicable [facility] Comment on above: Performed By: #### P OCGLUC #### [facility] [address] [place] [address] Dr. Kasia Nath E. histolytica Not detected Normal NOT DETECTED [facility] Comment on above: Performed By: #### P OCGLUC #### [facility] [address] [place] [address] [address] Kasia Nath EAEC Not detected Normal NOT DETECTED [facility] Comment on above: Performed By: #### P OCGLUC #### [facility] [address] [place] [address] Dr. Kasia Nath EIEC Not detected Normal NOT DETECTED [facility] Comment on above: Performed By: #### P OCGLUC #### [facility] [address] [place] [address] Dr. Kasia Nath EPEC Not detected Normal NOT DETECTED [facility] Comment on above: Performed By: #### P OCGLUC #### [facility] [address] [place] [address] Dr. Kasia Nath ETEC Not detected Normal NOT DETECTED [facility] Comment on above: Performed By: #### P OCGLUC #### [facility] [address] [place] [address] Dr. Kasia Nath G. Lamblia Not detected Normal NOT DETECTED [facility] Comment on above: Performed By: #### P OCGLUC #### [facility] [address] [place] [address] Dr. Kasia MOYERANEL CONTROLS PASSED Normal [facility] Comment on above: Performed By: #### P OCGLUC #### [facility] [address] [place] [address] Dr. Kasia THOMPSON JUNO HEADER GI PANEL BACTERIA Normal [facility] Comment on above: Performed By: #### P OCGLUC #### [facility] [address] [place] [address] Dr. Kasia THOMPSONHD ECOLI GI PANEL DIARRHEAGENIC E.COLI / SHIGELLA Normal [facility] Comment on above: Performed By: #### P OCGLUC #### [facility] [address] [place] [address] [address] Kasia GE INFO SEE BELOW Normal [facility] Comment on above: Result Comment: EAEC - Enteroaggregative E. Coli EPEC- Enteropathogenic E. Coli ETEC- Enterotoxigenic E. Coli lt/st STEC- Shigella-like toxin-producing E. Coli stx1/stx2 EIEC- Shigella/Enteroinvasive E. Coli Performed By: #### P OCGLUC #### [facility] [address] [place] [address] [address] Kasia GE PARASITES GI PANEL PARASITES Normal [facility] Comment on above: Performed By: #### P OCGLUC #### [facility] [address] [place] [address] Dr. Kasia GE VIRUS GI PANEL VIRUSES Normal [facility] Comment on above: Performed By: #### P OCGLUC #### [facility] [address] [place] [address] [address] Kasia Nath Norovirus GI/GII Not detected Normal NOT DETECTED [facility] Comment on above: Performed By: #### P OCGLUC #### [facility] [address] [place] [address] [address] Kasia Nath P. Shigelloides Not detected Normal NOT DETECTED [facility] Comment on above: Performed By: #### P OCGLUC #### [facility] [address] [place] [address] [address] Kasia Nath Rotavirus A Not detected Normal NOT DETECTED [facility] Comment on above: Performed By: #### P OCGLUC #### [facility] [address] [place] [address] [address] Kasia Nath Salmonella Not detected Normal NOT DETECTED [facility] Comment on above: Performed By: #### P OCGLUC #### [facility] [address] [place] [address] [address] Kasia Nath Sapovirus Not detected Normal NOT DETECTED [facility] Comment on above: Performed By: #### P OCGLUC #### [facility] [address] [place] [address] Dr. Kasia Nath STEC Not detected Normal NOT DETECTED [facility] Comment on above: Performed By: #### P OCGLUC #### [facility] [address] [place] [address] Dr. Kasia Nath Vibrio Not detected Normal NOT DETECTED [facility] Comment on above: Performed By: #### P OCGLUC #### [facility] [address] [place] [address] Dr. Kasia Nath Vibrio Cholera Not detected Normal NOT DETECTED [facility] Comment on above: Performed By: #### P OCGLUC #### [facility] [address] [place] [address] Dr. Kasia Nath Y. Enterocolitica Not detected Normal NOT DETECTED [facility] Comment on above: Performed By: #### P OCGLUC #### [facility] [address] [place] [address] Dr. Kasia Nath CBC AUTO DIFFon 02-14-2023 BASO # 0.0 103/ul Normal 0.0-0.[address] [facility] Comment on above: Performed By: #### P OCGLUC #### [facility] [address] [place] [address] Dr. Kasia Nath Basophils/100 WBC (Bld) 0.5 % Normal 0.2-2.0 [facility] Comment on above: Performed By: #### P OCGLUC #### [facility] [address] [place] [address] Dr. Kasia Nath EO # 0.2 103/ul Normal 0.0-0.[address] [facility] Comment on above: Performed By: #### P OCGLUC #### [facility] [address] [place] [address] Dr. Kasia Nath Eosinophils/100 WBC (Bld) 2.7 % Normal 0.9-7.[address] [facility] Comment on above: Performed By: #### P OCGLUC #### [facility] [address] [place] [address] Dr. Kasia Nath Erythrocyte distribution width (RBC) [Ratio] 13.0 % Normal 11.0-15.[address] [facility] Comment on above: Performed By: #### P OCGLUC #### [facility] [address] [place] [address] Dr. Kasia Nath Hematocrit (Bld) [Volume fraction] 35.9 % Critically low 36.0-48.[address] [facility] Comment on above: Performed By: #### P OCGLUC #### [facility] [address] [place] [address] Dr. Kasia Nath Hemoglobin (Bld) [Mass/Vol] 12.0 g/dL Normal 12.0-16.0 [facility] Comment on above: Performed By: #### P OCGLUC #### [facility] [address] [place] [address] Dr. Kasia Nath IG # 0.02 10e3/ul Normal 0.00-0.[address] [facility] Comment on above: Performed By: #### P OCGLUC #### [facility] [address] [place] [address] Dr. Kasia Nath IG % 0.3 % Normal 0.0-0.[address] [facility] Comment on above: Performed By: #### P OCGLUC #### [facility] [address] [place] [address] Dr. Kasia Nath LYMPH # 1.8 103/ul Normal 1.2-3.[address] [facility] Comment on above: Performed By: #### P OCGLUC #### [facility] [address] [place] [address] Dr. Kasia Nath Lymphocytes/100 WBC (Bld) 22.8 % Normal 20.5-60.0 [facility] Comment on above: Performed By: #### P OCGLUC #### [facility] [address] [place] [address] Dr. Kasia Nath MANUAL DIFF REQ NO Normal [facility] Comment on above: Performed By: #### P OCGLUC #### [facility] [address] [place] [address] Dr. Kasia Nath MCH (RBC) [Entitic mass] 29.4 pg Normal 26.7-34.[address] [facility] Comment on above: Performed By: #### P OCGLUC #### [facility] [address] [place] [address] Dr. Kasia Nath MCHC (RBC) [Mass/Vol] 33.4 g/dL Normal 29.9-35.[address] [facility] Comment on above: Performed By: #### P OCGLUC #### [facility] [address] [place] [address] Dr. Kasia Nath MCV (RBC) [Entitic vol] 88.0 fL Normal 81.0-99.0 [facility] Comment on above: Performed By: #### P OCGLUC #### [facility] [address] [place] [address] Dr. Kasia Nath MONO # 0.7 103/ul Normal 0.3-0.[address] [facility] Comment on above: Performed By: #### P OCGLUC #### [facility] [address] [place] [address] Dr. Kasia Nath Monocytes/100 WBC (Bld) 9.3 % Normal 1.7-12.0 [facility] Comment on above: Performed By: #### P OCGLUC #### [facility] [address] [place] [address] Dr. Kasia Nath NEUT # 5.1 103/ul Normal 1.4-6.[address] [facility] Comment on above: Performed By: #### P OCGLUC #### [facility] [address] [place] [address] Dr. Kasia Nath Neutrophils/100 WBC (Bld) 64.4 % Normal 43.0-75.[address] [facility] Comment on above: Performed By: #### P OCGLUC #### [facility] [address] [place] [address] Dr. Kasia Nath Platelet mean volume (Bld) [Entitic vol] 11.7 fL Normal 9.5-13.[address] [facility] Comment on above: Performed By: #### P OCGLUC #### [facility] [address] [place] [address] [address] Kasia Nath PLT 175 103/ul Normal 150-450 [facility] Comment on above: Performed By: #### P OCGLUC #### [facility] [address] [address] [address] Kasia Nath RBC 4.08 106/ul Critically low 4.20-5.40 [facility] Comment on above: Performed By: #### P OCGLUC #### [facility] [address] [address] [address] Kasia Nath WBC 7.9 103/ul Normal 4.0-11.[address] [facility] Comment on above: Performed By: #### P OCGLUC #### [facility] [address] [address] [address] Kasia Nath LIPASEon 02-14-2023 Lipase [Catalytic activity/Vol] 51.0 U/L Critically low 73.0-393.[address] [facility] Comment on above: Performed By: #### L IPA, CMP ####[facility] [address] [address]DrDoreen Nath PROF 14(COMP METB)on 023 Albumin [Mass/Vol] 2.8 g/dL Critically low 3.4-5.0 [facility] Comment on above: Performed By: #### L IPA, CMP ####[facility] [address] [address]DrDoreen Nath Albumin/Globulin [Mass ratio] 0.7 {ratio} Normal [facility] Comment on above: Performed By: #### L IPA, CMP ####[facility] [address] [address]DrDoreen Nath ALP [Catalytic activity/Vol] 90 U/L Normal 46-116 [facility] Comment on above: Performed By: #### L IPA, CMP ####[facility] [address] [address]DrDoreen Nath ALT [Catalytic activity/Vol] 15 U/L Normal 14-[address] [facility] Comment on above: Performed By: #### L IPA, CMP ####[facility] [address] [address]Dr. Kasia Nath Anion gap [Moles/Vol] 15.6 mmol/L Normal [facility] Comment on above: Performed By: #### L IPA, CMP ####[facility] [address] [address]Dr. Kasia Nath AST [Catalytic activity/Vol] 9 U/L Critically low 15-37 [facility] Comment on above: Performed By: #### L IPA, CMP ####[facility] S[address] [place], [place] [address]Dr. Kasia Nath Bilirubin [Mass/Vol] 0.4 mg/dL Normal 0.2-1.[address] [facility] Comment on above: Performed By: #### L IPA, CMP ####[facility] [address] [place], [place] [address]Dr. Kasia Nath Calcium [Mass/Vol] 9.1 mg/dL Normal 8.5-10.1 [facility] Comment on above: Performed By: #### L IPA, CMP ####[facility] [address] [place], [place] [address]Dr. Kasia Nath Chloride [Moles/Vol] 104 mmol/L Normal 98-[address] [facility] Comment on above: Performed By: #### L IPA, CMP ####[facility] [address] [place], [place] [address]Dr. Kasia Nath CO2 [Moles/Vol] 17.0 mmol/L Critically low 21.0-32.[address] [facility] Comment on above: Performed By: #### L IPA, CMP ####[facility] [address] [place], [place] [address]Dr. Kasia Nath Creatinine [Mass/Vol] 1.78 mg/dL Critically high 0.55-1.[address] [facility] Comment on above: Performed By: #### L IPA, CMP ####[facility] [address] [place], [place] [address]Dr. Kasia Portillo EGFR-AF ALBANIAN 34 mL/min/1.73m2 Critically low >=60 [facility] Comment on above: Performed By: #### L IPA, CMP ####[facility] [address] [address]Dr. Kasia Nath EGFR-NON AF ALBANIAN 28 mL/min/1.73m2 Critically low >=[address] [facility] Comment on above: Performed By: #### L IPA, CMP ####[facility] [address] [address]Dr. Fartuncristy Nath Globulin (S) [Mass/Vol] 4.3 g/dL Normal [facility] Comment on above: Performed By: #### L IPA, CMP ####[facility] [address] [place], [place] [address]Dr. Kasia Nath Glucose [Mass/Vol] 248 mg/dL Critically high 74-106 [facility] Comment on above: Performed By: #### L IPA, CMP ####[facility] Lf[address] [place], [place] [address]Dr. Kasia Nath Potassium [Moles/Vol] 4.6 mmol/L Normal 3.5-5.[address] [facility] Comment on above: Performed By: #### L IPA, CMP ####[facility] Xurt[address]se[address] [place], [place] [address]Dr. Kasia Nath Protein [Mass/Vol] 7.1 g/dL Normal 6.4-8.2 [facility] Comment on above: Performed By: #### L IPA, CMP ####[facility] Qsyibolnqz[address] [place], [place] [address]Dr. Kasia Nath Sodium [Moles/Vol] 132 mmol/L Critically low 136-145 [facility] Comment on above: Performed By: #### L IPA, CMP ####[facility] [address]jus[address] [place], [place] [address]Dr. Kasia Nath Urea nitrogen [Mass/Vol] 78.0 mg/dL Critically high 7.0-18.[address] [facility] Comment on above: Performed By: #### L IPA, CMP ####[facility] Eqkpxigz[address] [place], [place] [address]Dr. Kasia Nath Urea nitrogen/Creatinine [Mass ratio] 43.8 mg/mg Normal [facility] Comment on above: Performed By: #### L IPA, CMP ####[facility] Bbwazve[address] [place], [place] [address]Dr. Kasia Portillo CBC AUTO DIFFon 02-13-2023 BASO # 0.0 103/ul Normal 0.0-0.[address] [facility] Comment on above: Performed By: #### C BC ####[facility] Quwtbdcxkb[address] [place], [place] [address]Dr. Fartuncristy Nath Basophils/100 WBC (Bld) 0.5 % Normal 0.2-2.0 [facility] Comment on above: Performed By: #### C BC ####[facility] Snqtjq[address] [place], [place] [address]Dr. Fartuncristy Nath EO # 0.1 103/ul Normal 0.0-0.[address] [facility] Comment on above: Performed By: #### C BC ####[facility] N[address] [place], [place] [address]Dr. Kasia Portillo Eosinophils/100 WBC (Bld) 1.0 % Normal 0.9-7.0 [facility] Comment on above: Performed By: #### C BC ####[facility] Tewyf[address] [place], [place] [address]Dr. Kasia Nath Erythrocyte distribution width (RBC) [Ratio] 12.8 % Normal 11.0-15.[address] [facility] Comment on above: Performed By: #### C BC ####[facility] [address] [place], [place] [address]Dr. Kasia Nath Hematocrit (Bld) [Volume fraction] 38.5 % Normal 36.0-48.0 [facility] Comment on above: Performed By: #### C BC ####[facility] Bigv[address] [place], [place] [address]Dr. Kasia Nath Hemoglobin (Bld) [Mass/Vol] 13.0 g/dL Normal 12.0-16.0 [facility] Comment on above: Performed By: #### C BC ####[facility] [address] [address]Dr. Kasia Nath IG # 0.02 10e3/ul Normal 0.00-0.[address] [facility] Comment on above: Performed By: #### C BC ####[facility] [address] [address]Dr. Kasia Nath IG % 0.2 % Normal 0.0-0.[address] [facility] Comment on above: Performed By: #### C BC ####[facility] [address] [address]Dr. Kasia Portillo LYMPH # 0.9 103/ul Critically low 1.2-3.8 [facility] Comment on above: Performed By: #### C BC ####[facility] [address] [address]Dr. Kasia Nath Lymphocytes/100 WBC (Bld) 10.0 % Critically low 20.5-60.[address] [facility] Comment on above: Performed By: #### C BC ####[facility] [address] [address]Dr. Fartuncristy Nath MANUAL DIFF REQ NO Normal [facility] Comment on above: Performed By: #### C BC ####[facility] [address] [address]Dr. Kasia Nath MCH (RBC) [Entitic mass] 29.5 pg Normal 26.7-34.[address] [facility] Comment on above: Performed By: #### C BC ####[facility] [address] [address]Dr. Kasia Portillo MCHC (RBC) [Mass/Vol] 33.8 g/dL Normal 29.9-35.[address] [facility] Comment on above: Performed By: #### C BC ####[facility] [address] [place], [place] [address]Dr. Kasia Portillo MCV (RBC) [Entitic vol] 87.5 fL Normal 81.0-99.0 [facility] Comment on above: Performed By: #### C BC ####[facility] [address] [id number]. Kasia Nath MONO # 0.5 103/ul Normal 0.3-0.8 [facility] Comment on above: Performed By: #### C BC ####[facility] [address] [address]Dr. Kasia Nath Monocytes/100 WBC (Bld) 5.7 % Normal 1.7-12.0 [facility] Comment on above: Performed By: #### C BC ####[facility] [address] [address]Dr. Kasia Nath NEUT # 7.2 103/ul Critically high 1.4-6.5 [facility] Comment on above: Performed By: #### C BC ####[facility] [address] [address]Dr. Kasia Nath Neutrophils/100 WBC (Bld) 82.6 % Critically high 43.0-75.0 [facility] Comment on above: Performed By: #### C BC ####[facility] [address] [id number]. Kasia Nath Platelet mean volume (Bld) [Entitic vol] 11.8 fL Normal 9.5-13.[address] [facility] Comment on above: Performed By: #### C BC ####[facility] [address] [id number]. Kasia Nath PLT 187 103/ul Normal 150-450 [facility] Comment on above: Performed By: #### C BC ####[facility] [address] [address]Dr. Kasia Nath RBC 4.40 106/ul Normal 4.20-5.40 [facility] Comment on above: Performed By: #### C BC ####[facility] [address] [address]Dr. Kasia Nath WBC 8.8 103/ul Normal 4.0-11.0 [facility] Comment on above: Performed By: #### C BC ####[facility] [address] [place], [place] [id number] Nath CT ABD/PELVIS WO CONon 02-13 CT [...] 14:40 Normal [facility] CULTURE URINEon 02-13-2023 CULTURE URINE Culture Observations : LIGHT GROWTH OF MIXED GENITAL VON. NO POTENTIAL PATHOGENS SEEN. Normal [facility] Comment on above: Performed By: #### U RCX ####[facility] [address] [place], [place] [address]GpDoreen Nath [facility]on SARS-CoV-2 (COVID-19) RNA FERN+probe Ql (Unsp spec) Not detected Normal NOT DETECTED [facility] Comment on above: Result Comment: [...] for this test is supported by the [place] of Health and Human Service's declaration that [...] P OCGLUC #### [facility] [address] [place] [address] Dr. Kasia Nath GI PANEL (PCR)on 02-13-2023 Adenovirus F 40/41 Not detected Normal NOT DETECTED [facility] Comment on above: Performed By: #### C BC #### [facility] [address] [place] [address] Dr. Kasia Nath Astrovirus Not detected Normal NOT DETECTED [facility] Comment on above: Performed By: #### C BC #### [facility] [address] [place] [address] Dr. Kasia Del Real. Diff toxin A/B Not detected Normal NOT DETECTED [facility] Comment on above: Performed By: #### C BC #### [facility] [address] [place] [address] Dr. Kasia Nath Campylobacter Not detected Normal NOT DETECTED [facility] Comment on above: Performed By: #### C BC #### [facility] [address] [place] [address] Dr. Kasia Nath Cryptosporidium Not detected Normal NOT DETECTED [facility] Comment on above: Performed By: #### C BC #### [facility] [address] [place] [address] Dr. Kasia Nath Cyclos. Cayetanensis Not detected Normal NOT DETECTED [facility] Comment on above: Performed By: #### C BC #### [facility] [address] [place] [address] Dr. Kasia Nath E. Coli O157 Not Applicable Normal Not Applicable [facility] Comment on above: Performed By: #### C BC #### [facility] [address] [place] [address] Dr. Kasia Nath E. histolytica Not detected Normal NOT DETECTED [facility] Comment on above: Performed By: #### C BC #### [facility] [address] [place] [address] Dr. Kasia Nath EAEC Not detected Normal NOT DETECTED [facility] Comment on above: Performed By: #### C BC #### [facility] [address] [place] [address] Dr. Kasia Nath EIEC Not detected Normal NOT DETECTED [facility] Comment on above: Performed By: #### C BC #### [facility] [address] [place] [address] Dr. Kasia Nath EPEC Not detected Normal NOT DETECTED [facility] Comment on above: Performed By: #### C BC #### [facility] [address] [place] [address] Dr. Kasia Nath ETEC Not detected Normal NOT DETECTED [facility] Comment on above: Performed By: #### C BC #### [facility] [address] [place] [address] Dr. Kasia Nath G. Lamblia Not detected Normal NOT DETECTED [facility] Comment on above: Performed By: #### C BC #### [facility] [address] [place] [address] Dr. Kasia MOYERANEL CONTROLS PASSED Normal [facility] Comment on above: Performed By: #### C BC #### [facility] [address] [place] [address] Dr. Kasia THOMPSON JUNO HEADER GI PANEL BACTERIA Normal [facility] Comment on above: Performed By: #### C BC #### [facility] [address] [place] [address] Dr. Kasia AGUILARLI GI PANEL DIARRHEAGENIC E.COLI / SHIGELLA Normal [facility] Comment on above: Performed By: #### C BC #### [facility] [address] [address] [address] Kasia GE INFO SEE BELOW Normal [facility] Comment on above: Result Comment: EAEC - Enteroaggregative E. Coli EPEC- Enteropathogenic E. Coli ETEC- Enterotoxigenic E. Coli lt/st STEC- Shigella-like toxin-producing E. Coli stx1/stx2 EIEC- Shigella/Enteroinvasive E. Coli Performed By: #### C BC #### [facility] [address] [address] [address] Kasia GE PARASITES GI PANEL PARASITES Normal [facility] Comment on above: Performed By: #### C BC #### [facility] [address] [place] [address] Dr. Kasia GE VIRUS GI PANEL VIRUSES Normal [facility] Comment on above: Performed By: #### C BC #### [facility] [address] [address] [address] Kasia Nath Norovirus GI/GII Not detected Normal NOT DETECTED [facility] Comment on above: Performed By: #### C BC #### [facility] [address] [place] [address] Dr. Kasia Nath P. Shigelloides Not detected Normal NOT DETECTED [facility] Comment on above: Performed By: #### C BC #### [facility] [address] [address] [address] Kasia Nath Rotavirus A Not detected Normal NOT DETECTED [facility] Comment on above: Performed By: #### C BC #### [facility] [address] [address] [address] Kasia Nath Salmonella Not detected Normal NOT DETECTED [facility] Comment on above: Performed By: #### C BC #### [facility] [address] [place] [address] Dr. Kasia Nath Sapovirus Not detected Normal NOT DETECTED [facility] Comment on above: Performed By: #### C BC #### [facility] [address] [address] [address] Kasia Nath STEC Not detected Normal NOT DETECTED [facility] Comment on above: Performed By: #### C BC #### [facility] [address] [address] [address] Kasia Nath Vibrio Not detected Normal NOT DETECTED [facility] Comment on above: Performed By: #### C BC #### [facility] [address] [address] [address] Kasia Nath Vibrio Cholera Not detected Normal NOT DETECTED [facility] Comment on above: Performed By: #### C BC #### [facility] [address] [place] [address] Dr. Kasia Nath Y. Enterocolitica Not detected Normal NOT DETECTED [facility] Comment on above: Performed By: #### C BC #### [facility] [address] [place] [address] Dr. Kasia Nath LACTATE/LACTIC ACIDon 2022 Lactate [Moles/Vol] 1.7 mmol/L Normal 0.4-2.[address] [facility] Comment on above: Performed By: #### L ACT ####[facility] [address] [address]Dr. Kasia Nath LIPASEon 02-13-2023 Lipase [Catalytic activity/Vol] 82.0 U/L Normal 73.0-393.[address] [facility] Comment on above: Performed By: #### L IPA, CMP #### [facility] [address] [place] [address] Dr. Kasia Nath POINT OF CARE GLUCOSEon Glucose [Mass/Vol] 229 mg/dL Critically high -106 [facility] Comment on above: Performed By: #### P OCGLUC #### [facility] [address] [place] [address] Dr. Kasia Nath Glucose [Mass/Vol] 474 mg/dL Critically high -106 [facility] Comment on above: Performed By: #### P OCGLUC #### [facility] [address] [address] [address] Kasia Nath PROF 14(COMP METB)on 023 Albumin [Mass/Vol] 3.4 g/dL Normal 3.4-5.0 [facility] Comment on above: Performed By: #### L IPA, CMP #### [facility] [address] [address] [address] Kasia Nath Albumin/Globulin [Mass ratio] 0.7 {ratio} Normal [facility] Comment on above: Performed By: #### L IPA, CMP #### [facility] [address] [address] [address] Kasia Nath ALP [Catalytic activity/Vol] 106 U/L Normal 46-[address] [facility] Comment on above: Performed By: #### L IPA, CMP #### [facility] [address] [place] [address] Dr. Kasia Nath ALT [Catalytic activity/Vol] 21 U/L Normal 14-[address] [facility] Comment on above: Performed By: #### L IPA, CMP #### [facility] [address] [place] [address] Dr. Kasia Nath Anion gap [Moles/Vol] 17.7 mmol/L Normal [facility] Comment on above: Performed By: #### L IPA, CMP #### [facility] [address] [place] [address] Dr. Kasia Nath AST [Catalytic activity/Vol] 11 U/L Critically low 15-[address] [facility] Comment on above: Performed By: #### L IPA, CMP #### [facility] [address] [place] [address] Dr. Kasia Nath Bilirubin [Mass/Vol] 0.5 mg/dL Normal 0.2-1.[address] [facility] Comment on above: Performed By: #### L IPA, CMP #### [facility] [address] [address] [address] Kasia Nath Calcium [Mass/Vol] 9.6 mg/dL Normal 8.5-10.1 [facility] Comment on above: Performed By: #### L IPA, CMP #### [facility] [address] [address] [address] Kasia Nath Chloride [Moles/Vol] 99 mmol/L Normal 98-[address] [facility] Comment on above: Performed By: #### L IPA, CMP #### [facility] [address] [address] [address] Kasia Nath CO2 [Moles/Vol] 20.6 mmol/L Critically low 21.0-32.[address] [facility] Comment on above: Performed By: #### L IPA, CMP #### [facility] [address] [address] [address] Kasia Nath Creatinine [Mass/Vol] 2.14 mg/dL Critically high 0.55-1.[address] [facility] Comment on above: Performed By: #### L IPA, CMP #### [facility] [address] [address] [address] Kasia Nath EGFR-AF ALBANIAN 27 mL/min/1.73m2 Critically low >=[address] [facility] Comment on above: Performed By: #### L IPA, CMP #### [facility] [address] [address] [address] Kasia Nath EGFR-NON AF ALBANIAN 22 mL/min/1.73m2 Critically low >=[address] [facility] Comment on above: Performed By: #### L IPA, CMP #### [facility] [address] [address] [address] Kasia Nath Globulin (S) [Mass/Vol] 4.8 g/dL Normal [facility] Comment on above: Performed By: #### L IPA, CMP #### [facility] [address] [address] [address] Kasia Nath Glucose [Mass/Vol] 498 mg/dL Critically high 74-106 [facility] Comment on above: Performed By: #### L IPA, CMP #### [facility] [address] [address] [address] Kasia Nath Potassium [Moles/Vol] 5.3 mmol/L Critically high 3.5-5.[address] [facility] Comment on above: Performed By: #### L IPA, CMP #### [facility] [address] [address] [address] Kasia Nath Protein [Mass/Vol] 8.2 g/dL Normal 6.4-8.2 [facility] Comment on above: Performed By: #### L IPA, CMP #### [facility] [address] [address] [address] Kasia Nath Sodium [Moles/Vol] 132 mmol/L Critically low 136-145 [facility] Comment on above: Performed By: #### L IPA, CMP #### [facility] [address] [address] [address] Kasia Nath Urea nitrogen [Mass/Vol] 86.0 mg/dL Critically high 7.0-18.[address] [facility] Comment on above: Performed By: #### L IPA, CMP #### [facility] [address] [address] [address] Kasia Nath Urea nitrogen/Creatinine [Mass ratio] 40.2 mg/mg Normal [facility] Comment on above: Performed By: #### L IPA, CMP #### [facility] [address] [address] [address] Kasia Nath UA RANDOM W/MICROSCOPICon BACTERIA TRACE Abnormal NONE SEEN [facility] Comment on above: Performed By: #### U AMIC ####[facility] [address] [address]DrDoreen Nath Bilirubin Ql (U) Negative Normal NEGATIVE [facility] Comment on above: Performed By: #### U AMIC ####[facility] [address] [id number]. Kasia Nath CAST SEEN Abnormal NONE SEEN [facility] Comment on above: Performed By: #### U AMIC ####[facility] [address] [id number] Nath Clarity (U) CLEAR Normal CLEAR [facility] Comment on above: Performed By: #### U AMIC ####[facility] [address] [address]Dr. Kasia Nath Color (U) LT. YELLOW Normal YELLOW [facility] Comment on above: Performed By: #### U AMIC ####[facility] [address] [place] [address]Dr. Kasia Nath Crystals LM Nom (Urine sed) NONE SEEN Normal NONE SEEN [facility] Comment on above: Performed By: #### U AMIC ####[facility] [address] [place], [place] [address]Dr. Kasia Nath Epithelial cells LM Ql (Urine sed) FEW Abnormal NONE SEEN /RARE [facility] Comment on above: Performed By: #### U AMIC ####[facility] Mmpurvfph[address] [place], [place] [address]Dr. Kasia Nath Glucose Ql (U) >1000 Abnormal NEGATIVE [facility] Comment on above: Performed By: #### U AMIC ####[facility] Ngvocotiue[address] [place], [place] [address]Dr. Kasia Nath Hemoglobin Ql (U) Negative Normal NEGATIVE [facility] Comment on above: Performed By: #### U AMIC ####[facility] Mmbuevsnro[address] [place], [place] [address]Dr. Kasia Nath HYALINE CAST RARE Normal [facility] Comment on above: Performed By: #### U AMIC ####[facility] Djiduemgzb[address] [place] [address]Dr. Kasia Nath Ketones Ql (U) Negative Normal NEGATIVE [facility] Comment on above: Performed By: #### U AMIC ####[facility] Toipgpadju[address] [place], [place] [address]Dr. Kasia Nath LEUKOCYTES Negative Normal NEGATIVE [facility] Comment on above: Performed By: #### U AMIC ####[facility] Ukaehdrfma[address] [place], [place] [address]Dr. Kasia Nath MUCOUS NONE SEEN Normal NONE SEEN [facility] Comment on above: Performed By: #### U AMIC ####[facility] Cvvxggsllw[address] [place], [place] [address]Dr. Kasia Nath Nitrite Ql (U) Negative Normal NEGATIVE [facility] Comment on above: Performed By: #### U AMIC ####[facility] Ntkotyxepc0687 [place] [address]Dr. Kasia Nath pH (U) 5.5 [pH] Normal 5-9 [facility] Comment on above: Performed By: #### U AMIC ####[facility] [address]ahwzt[address] [place] [address]Dr. Kasia Nath RBC 0-2 Normal 0-[address] [facility] Comment on above: Performed By: #### U AMIC ####[facility] Xmiwtqjnsz5039 [place] [address]Dr. Kasia Nath SPEC GRAVITY 1.015 Normal 1.005-<=1.[address] [facility] Comment on above: Performed By: #### U AMIC ####[facility] Mqmvckecet[address] [place], [place] [address]Dr. Kasia Nath UA PROTEIN TRACE Normal NEGATIVE/ TRACE [facility] Comment on above: Performed By: #### U AMIC ####[facility] Pkgorltueh22[address] [place], [place] [address]Dr. Kasia Nath Urobilinogen Qn (U) 0.2 {Meka'U}/dL Normal 0.2 - 1. [address] [facility] Comment on above: Performed By: #### U AMIC ####[facility] Rmttwcubwr[address] [place], [place] [address]Dr. Kasia Nath WBC 0-2 Abnormal NONE SEEN [facility] Comment on above: Performed By: #### U AMIC ####[facility] Znfesbiwoo4441 [place] [address]Dr. Kasia Nath BNPon 01-16-2023 Natriuretic peptide B (Bld) [Mass/Vol] 1675.0 pg/mL Normal <=1,800.0 [facility] Comment on above: Performed By: #### B BOARDER HAND, CMP ####[facility] Ewkkgjxfpc[address] [place], [place] [address]Dr. Kasia Nath PROF 14(COMP METB)on 023 Albumin [Mass/Vol] 3.4 g/dL Normal 3.4-5.0 [facility] Comment on above: Performed By: #### B BOARDER HAND, CMP ####[facility] Dcnpsnuzom1376 [place] [address]Dr. Kasia Nath Albumin/Globulin [Mass ratio] 0.8 {ratio} Normal [facility] Comment on above: Performed By: #### B BOARDER HAND, CMP ####[facility] Wwixgmkuvw5123 [place] [address]Dr. Kasia Nath ALP [Catalytic activity/Vol] 99 U/L Normal 46-[address] [facility] Comment on above: Performed By: #### B BOARDER HAND, CMP ####[facility] Clrxkwfhcw[address] [place], [place] [address]Dr. Kasia Nath ALT [Catalytic activity/Vol] 18 U/L Normal 14-[address] [facility] Comment on above: Performed By: #### B BOARDER HAND, CMP ####[facility] Fdrhwtregm[address] [place], [place] [address]Dr. Kasia Nath Anion gap [Moles/Vol] 10.6 mmol/L Normal [facility] Comment on above: Performed By: #### B BOARDER HAND, CMP ####[facility] Cdzfwlbqkf[address] [place], [place] [address]Dr. Kasia Nath AST [Catalytic activity/Vol] 15 U/L Normal 15-[address] [facility] Comment on above: Performed By: #### B BOARDER HAND, CMP ####[facility] Gtvzpgyeae1638 [place] [address]Dr. Kasia Nath Bilirubin [Mass/Vol] 0.5 mg/dL Normal 0.2-1.[address] [facility] Comment on above: Performed By: #### B BOARDER HAND, CMP ####[facility] Qupesrroyn[address] [place], [place] [address]Dr. Kasia Nath Calcium [Mass/Vol] 9.1 mg/dL Normal 8.5-10.1 [facility] Comment on above: Performed By: #### B BOARDER HAND, CMP ####[facility] Zcpxlaujkn[address] [place], [place] [address]Dr. Kasia Nath Chloride [Moles/Vol] 98 mmol/L Normal 98-107 [facility] Comment on above: Performed By: #### B BOARDER HAND, CMP ####[facility] Ytfscknadq[address] [place], [place] [address]Dr. Kasia Nath CO2 [Moles/Vol] 30.4 mmol/L Normal 21.0-32.0 [facility] Comment on above: Performed By: #### B BOARDER HAND, CMP ####[facility] Cqfppawxtb[address] [place], [place] [address]Dr. Kasia Nath Creatinine [Mass/Vol] 1.44 mg/dL Critically high 0.55-1.[address] [facility] Comment on above: Performed By: #### B BOARDER HAND, CMP ####[facility] Yycvcabnyf886[address] [place], [place] [address]Dr. Kasia Portillo EGFR-AF ALBANIAN 43 mL/min/1.73m2 Critically low >=[address] [facility] Comment on above: Performed By: #### B BOARDER HAND, CMP ####[facility] Zmxpedecap[address] [place], [place] [address]Dr. Kasia Nath EGFR-NON AF ALBANIAN 35 mL/min/1.73m2 Critically low >=[address] [facility] Comment on above: Performed By: #### B BOARDER HAND, CMP ####[facility] Jaxhftcjok6[address] [place], [place] [address]Dr. Kasia Portillo Globulin (S) [Mass/Vol] 4.4 g/dL Normal [facility] Comment on above: Performed By: #### B BOARDER HAND, CMP ####[facility] Dkkpuadfrn[address] [place], [place] [address]Dr. Kasia Portillo Glucose [Mass/Vol] 401 mg/dL Critically high 74-106 [facility] Comment on above: Performed By: #### B BOARDER HAND, CMP ####[facility] Cjmgrfooyw329[address] [place], [place] [address]Dr. Kasia Nath Potassium [Moles/Vol] 5.0 mmol/L Normal 3.5-5.[address] [facility] Comment on above: Performed By: #### B BOARDER HAND, CMP ####[facility] Issscrmaxc3166 [place] [address]Dr. Kasia Nath Protein [Mass/Vol] 7.8 g/dL Normal 6.4-8.2 [facility] Comment on above: Performed By: #### B BOARDER HAND, CMP ####[facility] Igdqopncxo9[address] [place], [place] [address]Dr. Kasia Nath Sodium [Moles/Vol] 134 mmol/L Critically low 136-145 [facility] Comment on above: Performed By: #### B BOARDER HAND, CMP ####[facility] Nlyatcpjmn[address] [place], [place] [address]Dr. Kasia Nath Urea nitrogen [Mass/Vol] 46.0 mg/dL Critically high 7.0-18.[address] [facility] Comment on above: Performed By: #### B BOARDER HAND, CMP ####[facility] Uumzjrbvat[address] [place], [place] [address]Dr. Kasia Nath Urea nitrogen/Creatinine [Mass ratio] 31.9 mg/mg Normal [facility] Comment on above: Performed By: #### B BOARDER HAND, CMP ####[facility] C[address]qykamqd[address] [place], [place] [address]Dr. Kasia Nath BNPon 01-05-2023 Natriuretic peptide B (Bld) [Mass/Vol] 1389.0 pg/mL Normal <=1,800.[address] [facility] Comment on above: Performed By: #### B BOARDER HAND, CMADM, CMP ####[facility] Eqaukmodbi[address] [place], [place] [address]Dr. Kasia Nath CARDIAC EMERY ADMITon 023 CK [Catalytic activity/Vol] 138 U/L Normal 26-[address] [facility] Comment on above: Performed By: #### B BOARDER HAND, CMADM, CMP ####[facility] Mtsmasryop213[address] [place], [place] [address]Dr. Kasia Nath CK.MB [Mass/Vol] 2.22 ng/mL Normal <=3.60 [facility] Comment on above: Performed By: #### B BOARDER HAND, CMADM, CMP ####[facility] C[address]bfsddmcx[address] [place], [place] [address]Dr. Kasia Nath HSTROP 15.9 pg/mL Normal 4.0-51.[address] [facility] Comment on above: Result Comment: CUT- OFF POINTS HAVE BEEN ESTABLISHED BASED ON THE FOURTH UNIVERSAL DEFINITIONS OF MYOCARDIAL INFARCTION. THE UPPER REFERENCE LIMIT (URL) OF TROPONIN, DEFINED THE 99TH PERCENTILE OF cTnI DISTRIBUTION IN A REFERENCE POPULATION, HAS BEEN CONFIRMED THE DECISION THRESHOLD FOR [place] DIAGNOSIS. Performed By: #### B BOARDER HAND, CMADM, CMP ####[facility] [address]swvrqz64[address] [place] [id number]. Kasia Nath GRETTA 178 ng/mL Critically high 9-82 [facility] Comment on above: Performed By: #### B BOARDER HAND, CMADM, CMP ####[facility] Bdayxwpkzl[address] [place] [address]Dr. Kasia Nath CBC AUTO DIFFon 01-05-2023 BASO # 0.1 103/ul Normal 0.0-0.[address] [facility] Comment on above: Performed By: #### C BC #### [facility] [address] [place] [address] [address] Kasia Nath Basophils/100 WBC (Bld) 0.7 % Normal 0.2-2.0 [facility] Comment on above: Performed By: #### C BC #### [facility] [address] [place] [address] Dr. Kasia Nath EO # 0.3 103/ul Normal 0.0-0.[address] [facility] Comment on above: Performed By: #### C BC #### [facility] [address] [place] [address] [address] Kasia Nath Eosinophils/100 WBC (Bld) 2.9 % Normal 0.9-7.[address] [facility] Comment on above: Performed By: #### C BC #### [facility] [address] [place] [address] Dr. Kasia Nath Erythrocyte distribution width (RBC) [Ratio] 13.5 % Normal 11.0-15.[address] [facility] Comment on above: Performed By: #### C BC #### [facility] [address] [place] [address] Dr. Kasia Nath Hematocrit (Bld) [Volume fraction] 39.8 % Normal 36.0-48.[address] [facility] Comment on above: Performed By: #### C BC #### [facility] [address] [place] [address] Dr. Kasia Nath Hemoglobin (Bld) [Mass/Vol] 13.5 g/dL Normal 12.0-16.[address] [facility] Comment on above: Performed By: #### C BC #### [facility] [address] [place] [address] Dr. Kasia Nath IG # 0.02 10e3/ul Normal 0.00-0.[address] [facility] Comment on above: Performed By: #### C BC #### [facility] [address] [place] [address] Dr. Kasia Nath IG % 0.2 % Normal 0.0-0.[address] [facility] Comment on above: Performed By: #### C BC #### [facility] [address] [place] [address] Dr. Kasia Nath LYMPH # 1.9 103/ul Normal 1.2-3.8 [facility] Comment on above: Performed By: #### C BC #### [facility] [address] [place] [address] Dr. Kasia Nath Lymphocytes/100 WBC (Bld) 22.0 % Normal 20.5-60.[address] [facility] Comment on above: Performed By: #### C BC #### [facility] [address] [place] [address] Dr. Kasia Nath MANUAL DIFF REQ NO Normal [facility] Comment on above: Performed By: #### C BC #### [facility] [address] [place] [address] Dr. Kasia Nath MCH (RBC) [Entitic mass] 29.8 pg Normal 26.7-34.[address] [facility] Comment on above: Performed By: #### C BC #### [facility] [address] [place] [address] Dr. Kasia Nath MCHC (RBC) [Mass/Vol] 33.9 g/dL Normal 29.9-35.[address] [facility] Comment on above: Performed By: #### C BC #### [facility] [address] [place] [address] Dr. Kasia Nath MCV (RBC) [Entitic vol] 87.9 fL Normal 81.0-99.0 [facility] Comment on above: Performed By: #### C BC #### [facility] [address] [place] [address] Dr. Kasia Nath MONO # 0.8 103/ul Normal 0.3-0.[address] [facility] Comment on above: Performed By: #### C BC #### [facility] [address] [place] [address] Dr. Kasia Nath Monocytes/100 WBC (Bld) 8.8 % Normal 1.7-12.0 [facility] Comment on above: Performed By: #### C BC #### [facility] [address] [place] [address] Dr. Kasia Nath NEUT # 5.6 103/ul Normal 1.4-6.[address] [facility] Comment on above: Performed By: #### C BC #### [facility] [address] [place] [address] Dr. Kasia Nath Neutrophils/100 WBC (Bld) 65.4 % Normal 43.0-75.[address] [facility] Comment on above: Performed By: #### C BC #### [facility] [address] [place] [address] Dr. Kasia Nath Platelet mean volume (Bld) [Entitic vol] 10.6 fL Normal 9.5-13.[address] [facility] Comment on above: Performed By: #### C BC #### [facility] [address] [place] [address] Dr. Kasia Nath PLT 222 103/ul Normal 150-[address] [facility] Comment on above: Performed By: #### C BC #### [facility] [address] [place] [address] Dr. Kasia Nath RBC 4.53 106/ul Normal 4.20-5.40 [facility] Comment on above: Performed By: #### C BC #### [facility] [address] [place] [address] [address] Kasia Nath WBC 8.6 103/ul Normal 4.0-11.[address] [facility] Comment on above: Performed By: #### C BC #### [facility] [address] [place] [address] [address] Kasia Nath PROF 14(COMP METB)on 023 Albumin [Mass/Vol] 3.3 g/dL Critically low 3.4-5.0 [facility] Comment on above: Performed By: #### B BOARDER HAND, CMADM, CMP #### [facility] [address] [place] [address] Dr. Kasia Nath Albumin/Globulin [Mass ratio] 0.7 {ratio} Normal [facility] Comment on above: Performed By: #### B BOARDER HAND, CMADM, CMP #### [facility] [address] [place] [address] [address] Kasia Nath ALP [Catalytic activity/Vol] 106 U/L Normal 46-[address] [facility] Comment on above: Performed By: #### B BOARDER HAND, CMADM, CMP #### [facility] [address] [place] [address] Dr. Kasia Nath ALT [Catalytic activity/Vol] 22 U/L Normal 14-[address] [facility] Comment on above: Performed By: #### B BOARDER HAND, CMADM, CMP #### [facility] [address] [place] [address] [address] Kasia Nath Anion gap [Moles/Vol] 12.0 mmol/L Normal [facility] Comment on above: Performed By: #### B BOARDER HAND, CMADM, CMP #### [facility] [address] [place] [address] Dr. Kasia Nath AST [Catalytic activity/Vol] 23 U/L Normal 15-[address] [facility] Comment on above: Performed By: #### B BOARDER HAND, CMADM, CMP #### [facility] [address] [place] [address] Dr. Kasia Nath Bilirubin [Mass/Vol] 0.7 mg/dL Normal 0.2-1.[address] [facility] Comment on above: Performed By: #### B BOARDER HAND, LEONORA, CMP #### [facility] [address] [place] [address] [address] Kasia Nath Calcium [Mass/Vol] 8.8 mg/dL Normal 8.5-10.1 [facility] Comment on above: Performed By: #### B BOARDER HAND, CMADM, CMP #### [facility] [address] [place] [address] [address] Kasia Nath Chloride [Moles/Vol] 98 mmol/L Normal 98-[address] [facility] Comment on above: Performed By: #### B BOARDER HAND, LEONORA, CMP #### [facility] [address] [place] [address] Dr. Kasia Nath CO2 [Moles/Vol] 30.2 mmol/L Normal 21.0-32.0 [facility] Comment on above: Performed By: #### B BOARDER HAND, MACDM, CMP #### [facility] [address] [place] [address] Dr. Kasia Nath Creatinine [Mass/Vol] 1.19 mg/dL Critically high 0.55-1.[address] [facility] Comment on above: Performed By: #### B BOARDER HAND, MACDM, CMP #### [facility] [address] [place] [address] Dr. Kasia Nath EGFR-AF ALBANIAN 53 mL/min/1.73m2 Critically low >=[address] [facility] Comment on above: Performed By: #### B BOARDER HAND, CMADM, CMP #### [facility] [address] [place] [address] Dr. Kasia Nath EGFR-NON AF ALBANIAN 44 mL/min/1.73m2 Critically low >=[address] [facility] Comment on above: Performed By: #### B BOARDER HAND, CMADM, CMP #### [facility] [address] [place] [address] [address] Kasia Nath Globulin (S) [Mass/Vol] 4.7 g/dL Normal [facility] Comment on above: Performed By: #### B BOARDER HAND, CMADM, CMP #### [facility] [address] [place] [address] [address] Kasia Nath Glucose [Mass/Vol] 124 mg/dL Critically high 74-106 [facility] Comment on above: Performed By: #### B BOARDER HAND, CMADM, CMP #### [facility] [address] [place] [address] Dr. Kasia Nath Potassium [Moles/Vol] 3.2 mmol/L Critically low 3.5-5.[address] [facility] Comment on above: Performed By: #### B BOARDER HAND, CMADM, CMP #### [facility] [address] [place] [address] Dr. Kasia Nath Protein [Mass/Vol] 8.0 g/dL Normal 6.4-8.2 [facility] Comment on above: Performed By: #### B BOARDER HAND, CMADM, CMP #### [facility] [address] [place] [address] Dr. Kasia Nath Sodium [Moles/Vol] 137 mmol/L Normal 136-145 [facility] Comment on above: Performed By: #### B BOARDER HAND, CMADM, CMP #### [facility] [address] [place] [address] Dr. Kasia Nath Urea nitrogen [Mass/Vol] 29.0 mg/dL Critically high 7.0-18.[address] [facility] Comment on above: Performed By: #### B BOARDER HAND, CMADM, CMP #### [facility] [address] [place] [address] Dr. Kasia Nath Urea nitrogen/Creatinine [Mass ratio] 24.4 mg/mg Normal [facility] Comment on above: Performed By: #### B BOARDER HAND, CMADM, CMP #### [facility] [address] [place] [address] Dr. Kasia Nath TROPONIN, HIGH SENSITIVITYon 01-05-2023 HSTROP 18.4 pg/mL Normal 4.0-51.[address] [facility] Comment on above: Result Comment: CUT- OFF POINTS HAVE BEEN ESTABLISHED BASED ON THE FOURTH UNIVERSAL DEFINITIONS OF MYOCARDIAL INFARCTION. THE UPPER REFERENCE LIMIT (URL) OF TROPONIN, DEFINED THE 99TH PERCENTILE OF cTnI DISTRIBUTION IN A REFERENCE POPULATION, HAS BEEN CONFIRMED THE DECISION THRESHOLD FOR [place] DIAGNOSIS. Performed By: #### H STROPN ####[facility] [address] [place] [id number]. Kasia Nath XR CHEST 1 Von 01-05-2023 [...] by: BIN ROJAS Date: 2023-01-05 04:[address] [facility] BNPon 01-02-2023 Natriuretic peptide B (Bld) [Mass/Vol] 2583.0 pg/mL Critically high <=1,800.[address] [facility] Comment on above: Performed By: #### B BOARDER HAND, CMP ####[facility] [address] [place] [id number]. Kasia Nath CBC AUTO DIFFon 01-02-2023 BASO # 0.1 103/ul Normal 0.0-0.[address] [facility] Comment on above: Performed By: #### P OCGLUC #### [facility] [address] [place] [address] [address] Kasia Nath Basophils/100 WBC (Bld) 0.9 % Normal 0.2-2.0 [facility] Comment on above: Performed By: #### P OCGLUC #### [facility] [address] [place] [address] [address] Kasia Nath EO # 0.2 103/ul Normal 0.0-0.[address] [facility] Comment on above: Performed By: #### P OCGLUC #### [facility] [address] [place] [address] Dr. Kasia Nath Eosinophils/100 WBC (Bld) 2.3 % Normal 0.9-7.[address] [facility] Comment on above: Performed By: #### P OCGLUC #### [facility] [address] [place] [address] Dr. Kasia Nath Erythrocyte distribution width (RBC) [Ratio] 13.8 % Normal 11.0-15.[address] [facility] Comment on above: Performed By: #### P OCGLUC #### [facility] [address] [place] [address] Dr. Kasia Nath Hematocrit (Bld) [Volume fraction] 35.5 % Critically low 36.0-48.[address] [facility] Comment on above: Performed By: #### P OCGLUC #### [facility] [address] [place] [address] Dr. Kasia Nath Hemoglobin (Bld) [Mass/Vol] 11.6 g/dL Critically low 12.0-16.[address] [facility] Comment on above: Performed By: #### P OCGLUC #### [facility] [address] [place] [address] Dr. Kasia Nath IG # 0.02 10e3/ul Normal 0.00-0.[address] [facility] Comment on above: Performed By: #### P OCGLUC #### [facility] [address] [place] [address] Dr. Kasia Nath IG % 0.3 % Normal 0.0-0.5 [facility] Comment on above: Performed By: #### P OCGLUC #### [facility] [address] [place] [address] Dr. Kasia Nath LYMPH # 2.0 103/ul Normal 1.2-3.[address] [facility] Comment on above: Performed By: #### P OCGLUC #### [facility] [address] [place] [address] Dr. Kasia Nath Lymphocytes/100 WBC (Bld) 24.8 % Normal 20.5-60.[address] [facility] Comment on above: Performed By: #### P OCGLUC #### [facility] [address] [place] [address] Dr. Kasia Nath MANUAL DIFF REQ NO Normal [facility] Comment on above: Performed By: #### P OCGLUC #### [facility] [address] [place] [address] Dr. Kasia Nath MCH (RBC) [Entitic mass] 28.7 pg Normal 26.7-34.[address] [facility] Comment on above: Performed By: #### P OCGLUC #### [facility] [address] [place] [address] Dr. Kasia Nath MCHC (RBC) [Mass/Vol] 32.7 g/dL Normal 29.9-35.[address] [facility] Comment on above: Performed By: #### P OCGLUC #### [facility] [address] [place] [address] Dr. Kasia Nath MCV (RBC) [Entitic vol] 87.9 fL Normal 81.0-99.0 [facility] Comment on above: Performed By: #### P OCGLUC #### [facility] [address] [place] [address] Dr. Kasia Nath MONO # 0.8 103/ul Normal 0.3-0.[address] [facility] Comment on above: Performed By: #### P OCGLUC #### [facility] [address] [place] [address] Dr. Kasia Nath Monocytes/100 WBC (Bld) 9.6 % Normal 1.7-12.0 [facility] Comment on above: Performed By: #### P OCGLUC #### [facility] [address] [place] [address] Dr. Kasia Nath NEUT # 5.0 103/ul Normal 1.4-6.[address] [facility] Comment on above: Performed By: #### P OCGLUC #### [facility] [address] [place] [address] Dr. Kasia Nath Neutrophils/100 WBC (Bld) 62.1 % Normal 43.0-75.[address] [facility] Comment on above: Performed By: #### P OCGLUC #### [facility] [address] [address] [address] Kasia Nath Platelet mean volume (Bld) [Entitic vol] 10.7 fL Normal 9.5-13.[address] [facility] Comment on above: Performed By: #### P OCGLUC #### [facility] [address] [address] [address] Kasia Nath PLT 204 103/ul Normal 150-[address] [facility] Comment on above: Performed By: #### P OCGLUC #### [facility] [address] [address] [address] Kasia Nath RBC 4.04 106/ul Critically low 4.20-5.40 [facility] Comment on above: Performed By: #### P OCGLUC #### [facility] [address] [address] [address] Kasia Nath WBC 8.0 103/ul Normal 4.0-11.[address] [facility] Comment on above: Performed By: #### P OCGLUC #### [facility] [address] [address] [address] Kasia Nath GLYCOHEMOGLOBIN A1Con 2022 ADA RECOMMENDATION SEE BELOW Normal [facility] Comment on above: Result Comment: ADA RECOMMENDED LIMIT 4.0 - 6.0 ADA THERAPEUTIC TARGET < 7.0 ACTION SUGGESTED > 7.0 Performed By: #### A 1C ####[facility] [address] [address]Dr. Kasia Nath Glucose [Mass/Vol] 298 mg/dL Normal [facility] Comment on above: Performed By: #### A 1C ####[facility] [address] [address]Dr. Kasia Nath HbA1c (Bld) [Mass fraction] 12.0 % Critically high 4.5-6.[address] [facility] Comment on above: Performed By: #### A 1C ####[facility] [address] [address]Dr. Kasia Nath POINT OF CARE GLUCOSEon 12-14 Glucose [Mass/Vol] 227 mg/dL Critically high 74-106 [facility] Comment on above: Performed By: #### C BC #### [facility] [address] [address] [address] Kasia Nath Glucose [Mass/Vol] 214 mg/dL Critically high 74-106 [facility] Comment on above: Performed By: #### C BC #### [facility] [address] [address] [address] Kasia Nath PROF 14(COMP METB)on 023 Albumin [Mass/Vol] 2.6 g/dL Critically low 3.4-5.0 [facility] Comment on above: Performed By: #### B BOARDER HAND, CMP ####[facility] [address] [address]Dr. Kasia Nath Albumin/Globulin [Mass ratio] 0.6 {ratio} Normal [facility] Comment on above: Performed By: #### B BOARDER HAND, CMP ####[facility] [address] [address]Dr. Kasia Nath ALP [Catalytic activity/Vol] 94 U/L Normal 46-[address] [facility] Comment on above: Performed By: #### B BOARDER HAND, CMP ####[facility] [address] [address]Dr. Kasia Nath ALT [Catalytic activity/Vol] 16 U/L Normal 14-[address] [facility] Comment on above: Performed By: #### B BOARDER HAND, CMP ####[facility] [address] [address]Dr. Kasia Nath Anion gap [Moles/Vol] 10.6 mmol/L Normal [facility] Comment on above: Performed By: #### B BOARDER HAND, CMP ####[facility] [address] [address]Dr. Kasia Nath AST [Catalytic activity/Vol] 15 U/L Normal 15-[address] [facility] Comment on above: Performed By: #### B BOARDER HAND, CMP ####[facility] [address] [place], [place] [address]Dr. Kasia Nath Bilirubin [Mass/Vol] 0.8 mg/dL Normal 0.2-1.[address] [facility] Comment on above: Performed By: #### B BOARDER HAND, CMP ####[facility] [address] [place], [place] [address]Dr. Kasia Nath Calcium [Mass/Vol] 8.5 mg/dL Normal 8.5-10.1 [facility] Comment on above: Performed By: #### B BOARDER HAND, CMP ####[facility] [address] [place], [place] [address]Dr. Kasia Nath Chloride [Moles/Vol] 102 mmol/L Normal 98-[address] [facility] Comment on above: Performed By: #### B BOARDER HAND, CMP ####[facility] [address] [place], [place] [address]Dr. Kasia Nath CO2 [Moles/Vol] 30.2 mmol/L Normal 21.0-32.0 [facility] Comment on above: Performed By: #### B BOARDER HAND, CMP ####[facility] [address] [place], [place] [address]Dr. Kasia Nath Creatinine [Mass/Vol] 0.94 mg/dL Normal 0.55-1.[address] [facility] Comment on above: Performed By: #### B BOARDER HAND, CMP ####[facility] [address] [place], [place] [address]Dr. Kasia Portillo EGFR-AF ALBANIAN >60 Normal >=60 [facility] Comment on above: Performed By: #### B BOARDER HAND, CMP ####[facility] [address] [place], [place] [address]Dr. Fartuncristy Portillo EGFR-NON AF ALBANIAN 58 mL/min/1.73m2 Critically low >=[address] [facility] Comment on above: Performed By: #### B BOARDER HAND, CMP ####[facility] [address] [place], [place] [address]Dr. Kasia Nath Globulin (S) [Mass/Vol] 4.0 g/dL Normal [facility] Comment on above: Performed By: #### B BOARDER HAND, CMP ####[facility] [address] [address]Dr. Kasia Nath Glucose [Mass/Vol] 150 mg/dL Critically high 74-106 [facility] Comment on above: Performed By: #### B BOARDER HAND, CMP ####[facility] [address] [address]Dr. Kasia Nath Potassium [Moles/Vol] 3.8 mmol/L Normal 3.5-5.[address] [facility] Comment on above: Performed By: #### B BOARDER HAND, CMP ####[facility] [address] [address]Dr. Kasia Nath Protein [Mass/Vol] 6.6 g/dL Normal 6.4-8.2 [facility] Comment on above: Performed By: #### B BOARDER HAND, CMP ####[facility] [address] [place], [place] [address]Dr. Kasia Nath Sodium [Moles/Vol] 139 mmol/L Normal 136-145 [facility] Comment on above: Performed By: #### B BOARDER HAND, CMP ####[facility] [address] [address]Dr. Kasia Nath Urea nitrogen [Mass/Vol] 24.0 mg/dL Critically high 7.0-18.[address] [facility] Comment on above: Performed By: #### B BOARDER HAND, CMP ####[facility] [address] [address]Dr. Kasia Nath Urea nitrogen/Creatinine [Mass ratio] 25.5 mg/mg Normal [facility] Comment on above: Performed By: #### B BOARDER HAND, CMP ####[facility] [address] [address]DrDoreen Nath BNPon 01-01-2023 Natriuretic peptide B (Bld) [Mass/Vol] 1419.0 pg/mL Normal <=1,800.[address] [facility] Comment on above: Performed By: #### B BOARDER HAND #### [facility] [address] [address] [address] Kasia Nath CARDIAC EMERY 3-6on 3 CK [Catalytic activity/Vol] 80 U/L Normal 26-[address] [facility] Comment on above: Performed By: #### P OCGLUC #### [facility] [address] [address] [address] Kasia Nath CK.MB [Mass/Vol] 1.85 ng/mL Normal <=3.60 [facility] Comment on above: Performed By: #### P OCGLUC #### [facility] [address] [address] [address] Kasia Nath HSTROP 13.2 pg/mL Normal 4.0-51.3 [facility] Comment on above: Result Comment: CUT- OFF POINTS HAVE BEEN ESTABLISHED BASED ON THE FOURTH UNIVERSAL DEFINITIONS OF MYOCARDIAL INFARCTION. THE UPPER REFERENCE LIMIT (URL) OF TROPONIN, DEFINED THE 99TH PERCENTILE OF cTnI DISTRIBUTION IN A REFERENCE POPULATION, HAS BEEN CONFIRMED THE DECISION THRESHOLD FOR [place] DIAGNOSIS. Performed By: #### P OCGLUC #### [facility] [address] [address] [address] Kasia Nath CK [Catalytic activity/Vol] 73 U/L Normal 26-[address] [facility] Comment on above: Performed By: #### P OCGLUC #### [facility] [address] [address] [address] Kasia Nath CK.MB [Mass/Vol] 1.71 ng/mL Normal <=3.60 [facility] Comment on above: Performed By: #### P OCGLUC #### [facility] [address] [address] [address] Kasia Nath HSTROP 13.6 pg/mL Normal 4.0-51.3 [facility] Comment on above: Result Comment: CUT- OFF POINTS HAVE BEEN ESTABLISHED BASED ON THE FOURTH UNIVERSAL DEFINITIONS OF MYOCARDIAL INFARCTION. THE UPPER REFERENCE LIMIT (URL) OF TROPONIN, DEFINED THE 99TH PERCENTILE OF cTnI DISTRIBUTION IN A REFERENCE POPULATION, HAS BEEN CONFIRMED THE DECISION THRESHOLD FOR [place] DIAGNOSIS. Performed By: #### P OCGLUC #### [facility] [address] [place] [address] Dr. Kasia Nath CARDIAC EMERY ADMITon 023 CK [Catalytic activity/Vol] 71 U/L Normal 26-[address] [facility] Comment on above: Performed By: #### C BC #### [facility] [address] [place] [address] Dr. Kasia Nath CK.MB [Mass/Vol] 1.69 ng/mL Normal <=3.60 [facility] Comment on above: Performed By: #### C BC #### [facility] [address] [place] [address] Dr. Kasia Nath HSTROP 13.0 pg/mL Normal 4.0-51.3 [facility] Comment on above: Result Comment: CUT- OFF POINTS HAVE BEEN ESTABLISHED BASED ON THE FOURTH UNIVERSAL DEFINITIONS OF MYOCARDIAL INFARCTION. THE UPPER REFERENCE LIMIT (URL) OF TROPONIN, DEFINED THE 99TH PERCENTILE OF cTnI DISTRIBUTION IN A REFERENCE POPULATION, HAS BEEN CONFIRMED THE DECISION THRESHOLD FOR [place] DIAGNOSIS. Performed By: #### C BC #### [facility] [address] [place] [address] Dr. Kasia Nath GRETTA 75 ng/mL Normal 9-[address] [facility] Comment on above: Performed By: #### C BC #### [facility] [address] [place] [address] Dr. Kasia Nath CBC AUTO DIFFon 01-01-2023 BASO # 0.1 103/ul Normal 0.0-0.[address] [facility] Comment on above: Performed By: #### C BC #### [facility] [address] [place] [address] Dr. Kasia Nath Basophils/100 WBC (Bld) 1.1 % Normal 0.2-2.0 [facility] Comment on above: Performed By: #### C BC #### [facility] [address] [place] [address] Dr. Kasia Nath EO # 0.2 103/ul Normal 0.0-0.[address] [facility] Comment on above: Performed By: #### C BC #### [facility] [address] [place] [address] Dr. Kasia Nath Eosinophils/100 WBC (Bld) 2.9 % Normal 0.9-7.0 [facility] Comment on above: Performed By: #### C BC #### [facility] [address] [place] [address] Dr. Kasia Nath Erythrocyte distribution width (RBC) [Ratio] 13.8 % Normal 11.0-15.[address] [facility] Comment on above: Performed By: #### C BC #### [facility] [address] [place] [address] Dr. Kasia Nath Hematocrit (Bld) [Volume fraction] 36.2 % Normal 36.0-48.[address] [facility] Comment on above: Performed By: #### C BC #### [facility] [address] [place] [address] Dr. Kasia Nath Hemoglobin (Bld) [Mass/Vol] 12.1 g/dL Normal 12.0-16.[address] [facility] Comment on above: Performed By: #### C BC #### [facility] [address] [place] [address] Dr. Kasia Nath IG # 0.02 10e3/ul Normal 0.00-0.[address] [facility] Comment on above: Performed By: #### C BC #### [facility] [address] [place] [address] Dr. Kasia Nath IG % 0.3 % Normal 0.0-0.[address] [facility] Comment on above: Performed By: #### C BC #### [facility] [address] [place] [address] Dr. Kasia Nath LYMPH # 1.5 103/ul Normal 1.2-3.[address] [facility] Comment on above: Performed By: #### C BC #### [facility] [address] [place] [address] Dr. Kasia Nath Lymphocytes/100 WBC (Bld) 19.9 % Critically low 20.5-60.[address] [facility] Comment on above: Performed By: #### C BC #### [facility] [address] [place] [address] Dr. Kasia Nath MANUAL DIFF REQ NO Normal [facility] Comment on above: Performed By: #### C BC #### [facility] [address] [place] [address] Dr. Kasia Nath MCH (RBC) [Entitic mass] 29.7 pg Normal 26.7-34.[address] [facility] Comment on above: Performed By: #### C BC #### [facility] [address] [place] [address] Dr. Kasia Nath MCHC (RBC) [Mass/Vol] 33.4 g/dL Normal 29.9-35.[address] [facility] Comment on above: Performed By: #### C BC #### [facility] [address] [place] [address] Dr. Kasia Nath MCV (RBC) [Entitic vol] 88.9 fL Normal 81.0-99.0 [facility] Comment on above: Performed By: #### C BC #### [facility] [address] [place] [address] Dr. Kasia Nath MONO # 0.6 103/ul Normal 0.3-0.[address] [facility] Comment on above: Performed By: #### C BC #### [facility] [address] [place] [address] Dr. Kasia Nath Monocytes/100 WBC (Bld) 8.0 % Normal 1.7-12.0 [facility] Comment on above: Performed By: #### C BC #### [facility] [address] [place] [address] Dr. Kasia Nath NEUT # 5.1 103/ul Normal 1.4-6.[address] [facility] Comment on above: Performed By: #### C BC #### [facility] [address] [place] [address] Dr. Kasia Nath Neutrophils/100 WBC (Bld) 67.8 % Normal 43.0-75.[address] [facility] Comment on above: Performed By: #### C BC #### [facility] [address] [place] [address] Dr. Kasia Nath Platelet mean volume (Bld) [Entitic vol] 10.4 fL Normal 9.5-13.[address] [facility] Comment on above: Performed By: #### C BC #### [facility] [address] [place], [place] [address] Dr. Kasia Nath PLT 200 103/ul Normal 150-450 [facility] Comment on above: Performed By: #### C BC #### [facility] [address] [place], [place] [address] Dr. Kasia Nath RBC 4.07 106/ul Critically low 4.20-5.40 [facility] Comment on above: Performed By: #### C BC #### [facility] [address] [place], [place] [address] Dr. Kasia Nath WBC 7.5 103/ul Normal 4.0-11.[address] [facility] Comment on above: Performed By: #### C BC #### [facility] [address] [place], [place] [address] CHEST WO CONon [...] two extremes (Agatston score 101-1000). https://pubs.rsna.org /doi/abs/10.1148/radi ol.61610032 Electronically authenticated by: RENETTA MICHAELS Date: 2023-01-01 14:55 Normal [facility] Covid-19 PCR (CVDTBH)on 12-14 SARS-CoV-2 (COVID-19) RNA FERN+probe Ql (Unsp spec) Not detected Normal NOT DETECTED [facility] Comment on above: Result Comment: [...] for this test is supported by the Radiosonde Specialist of Health and Human Service's declaration that [...] longer be used). Performed By: #### C [facility] #### [facility] [address] [place] [address] Dr. Kasia Nath ECHO LIMITED STUDYon 023 ECHO LIMITED STUDY Patient: SAIMA CALL Exam Date: 01/01/2023 : 1945 Gender:F Ordering : LD GUERRERO . Admission #: [id number] Family : Order #: [id number] CLICK HERE TO VIEW EXAM ECHOCARDIOGRAM REPORT [...] Kaplan M.D. on 01/01/2023 at 13:[address] [facility] GLYCOHEMOGLOBIN A1Con 2022 ADA RECOMMENDATION SEE BELOW [facility] Comment on above: Result Comment: ADA RECOMMENDED LIMIT 4.0 - 6.0 ADA THERAPEUTIC TARGET < 7.0 ACTION SUGGESTED > 7.0 Performed By: #### P OCGLUC #### [facility] [address] [address] [address] Kasia Nath Glucose [Mass/Vol] 318 mg/dL Normal [facility] Comment on above: Performed By: #### P OCGLUC #### [facility] [address] [address] [address] Kasia Nath HbA1c (Bld) [Mass fraction] 12.7 % Critically high 4.5-6.[address] [facility] Comment on above: Performed By: #### P OCGLUC #### [facility] [address] [address] [address] Kasia Nath POINT OF CARE GLUCOSEon 12-14 Glucose [Mass/Vol] 162 mg/dL Critically high 74-106 [facility] Comment on above: Performed By: #### P OCGLUC ####[facility] [address] [address]Dr. Kasia Nath Glucose [Mass/Vol] 213 mg/dL Critically high 74-106 [facility] Comment on above: Performed By: #### P OCGLUC ####[facility] [address] [address]Dr. Kasia Nath Glucose [Mass/Vol] 248 mg/dL Critically high 74-106 [facility] Comment on above: Performed By: #### P OCGLUC #### [facility] [address] [address] [address] Kasia Nath PROF CHEM 8 (BAS METB)on Anion gap [Moles/Vol] 11.8 mmol/L Normal [facility] Comment on above: Performed By: #### C BC #### [facility] [address] [place] [address] Dr. Kasia Nath Calcium [Mass/Vol] 8.4 mg/dL Critically low 8.5-10.1 [facility] Comment on above: Performed By: #### C BC #### [facility] [address] [place] [address] Dr. Kasia Nath Chloride [Moles/Vol] 102 mmol/L Normal 98-[address] [facility] Comment on above: Performed By: #### C BC #### [facility] [address] [place] [address] Dr. Kasia Nath CO2 [Moles/Vol] 28.4 mmol/L Normal 21.0-32.0 [facility] Comment on above: Performed By: #### C BC #### [facility] [id number] Kasia Nath Creatinine [Mass/Vol] 1.09 mg/dL Critically high 0.55-1.[address] [facility] Comment on above: Performed By: #### C BC #### [facility] [id number] Kasia Nath EGFR-AF ALBANIAN 59 mL/min/1.73m2 Critically low >=[address] [facility] Comment on above: Performed By: #### C BC #### [facility] [id number] Kasia Nath EGFR-NON AF ALBANIAN 49 mL/min/1.73m2 Critically low >=[address] [facility] Comment on above: Performed By: #### C BC #### [facility] [address] [address] [address] Kasia Nath Glucose [Mass/Vol] 247 mg/dL Critically high 74-106 [facility] Comment on above: Performed By: #### C BC #### [facility] [address] [address] [address] Kasia Nath Potassium [Moles/Vol] 4.2 mmol/L Normal 3.5-5.[address] [facility] Comment on above: Performed By: #### C BC #### [facility] [id number] Kasia Nath Sodium [Moles/Vol] 138 mmol/L Normal 136-145 [facility] Comment on above: Performed By: #### C BC #### [facility] [id number] Kasia Nath Urea nitrogen [Mass/Vol] 28.0 mg/dL Critically high 7.0-18.[address] [facility] Comment on above: Performed By: #### C BC #### [facility] [id number] Kasia Nath Urea nitrogen/Creatinine [Mass ratio] 25.7 mg/mg Normal [facility] Comment on above: Performed By: #### C BC #### [facility] [id number] Kasia Nath XR CHEST 1 Von [...] : 1945 Gender:F Ordering : [facility] Admission #: [id number] Family : DR SHANTEL STEVEN M.D. Order #: [id number] CLICK HERE TO VIEW EXAM ECHOCARDIOGRAM REPORT [...] 18:17 Normal [facility] GI PANEL (PCR)on 05-02-2022 Adenovirus F 40/41 Not detected Normal NOT DETECTED [facility] Comment on above: Performed By: #### P OCGLUC #### [facility] [address] [place] [address] Dr. Kasia Nath Astrovirus Not detected Normal NOT DETECTED [facility] Comment on above: Performed By: #### P OCGLUC #### [facility] [address] [place] [address] Dr. Kasia Nath C. Diff toxin A/B Not detected Normal NOT DETECTED [facility] Comment on above: Performed By: #### P OCGLUC #### [facility] [address] [place] [address] Dr. Kasia Nath Campylobacter Not detected Normal NOT DETECTED [facility] Comment on above: Performed By: #### P OCGLUC #### [facility] [address] [place] [address] Dr. Kasia Nath Cryptosporidium Not detected Normal NOT DETECTED [facility] Comment on above: Performed By: #### P OCGLUC #### [facility] [address] [place] [address] Dr. Kasia Nath Cyclos. Cayetanensis Not detected Normal NOT DETECTED [facility] Comment on above: Performed By: #### P OCGLUC #### [facility] [address] [place] [address] Dr. Kasia Nath E. Coli O157 Not Applicable Normal Not Applicable [facility] Comment on above: Performed By: #### P OCGLUC #### [facility] [address] [place] [address] Dr. Kasia Nath E. histolytica Not detected Normal NOT DETECTED [facility] Comment on above: Performed By: #### P OCGLUC #### [facility] [address] [place] [address] Dr. Kasia Nath EAEC Not detected Normal NOT DETECTED [facility] Comment on above: Performed By: #### P OCGLUC #### [facility] [address] [place] [address] Dr. Kasia Nath EIEC Not detected Normal NOT DETECTED [facility] Comment on above: Performed By: #### P OCGLUC #### [facility] [address] [place] [address] Dr. Kasia Nath EPEC Detected Abnormal NOT DETECTED [facility] Comment on above: Performed By: #### P OCGLUC #### [facility] [address] [place] [address] Dr. Kasia Nath ETEC Not detected Normal NOT DETECTED [facility] Comment on above: Performed By: #### P OCGLUC #### [facility] [address] [place] [address] Dr. Kasia Nath G. Lamblia Not detected Normal NOT DETECTED [facility] Comment on above: Performed By: #### P OCGLUC #### [facility] [address] [place] [address] Dr. Kasia KHAN CONTROLS PASSED Normal [facility] Comment on above: Performed By: #### P OCGLUC #### [facility] [address] [place] [address] Dr. Kasia [facility] HEADER GI PANEL BACTERIA Normal [facility] Comment on above: Performed By: #### P OCGLUC #### [facility] [address] [place] [address] Dr. Kasia GE ECOLI GI PANEL DIARRHEAGENIC E.COLI / SHIGELLA Normal [facility] Comment on above: Performed By: #### P OCGLUC #### [facility] [address] [place] [address] Dr. Kasia GE INFO SEE BELOW Normal [facility] Comment on above: Result Comment: EAEC - Enteroaggregative E. Coli EPEC- Enteropathogenic E. Coli ETEC- Enterotoxigenic E. Coli lt/st STEC- Shigella-like toxin-producing E. Coli stx1/stx2 EIEC- Shigella/Enteroinvasive E. Coli Performed By: #### P OCGLUC #### [facility] [address] [address] [address] Kasia GE PARASITES GI PANEL PARASITES Normal [facility] Comment on above: Performed By: #### P OCGLUC #### [facility] [address] [address] [address] Kasia GE VIRUS GI PANEL VIRUSES Normal The [facility] Comment on above: Performed By: #### P OCGLUC #### [facility] [address] [address] [address] Kasia Nath Norovirus GI/GII Not detected Normal NOT DETECTED [facility] Comment on above: Performed By: #### P OCGLUC #### [facility] [address] [address] [address] Kasia Nath P. Shigelloides Not detected Normal NOT DETECTED [facility] Comment on above: Performed By: #### P OCGLUC #### [facility] [address] [address] [address] Kasia Nath Rotavirus A Not detected Normal NOT DETECTED The [facility] Comment on above: Performed By: #### P OCGLUC #### [facility] [address] [address] [address] Kasia Nath Salmonella Not detected Normal NOT DETECTED [facility] Comment on above: Performed By: #### P OCGLUC #### [facility] [address] [address] [address] Kasia Nath Sapovirus Not detected Normal NOT DETECTED [facility] Comment on above: Performed By: #### P OCGLUC #### [facility] [address] [address] [address] Kasia Nath STEC Not detected Normal NOT DETECTED [facility] Comment on above: Performed By: #### P OCGLUC #### [facility] [address] [address] [address] Kasia Nath Vibrio Not detected Normal NOT DETECTED [facility] Comment on above: Performed By: #### P OCGLUC #### [facility] [address] [address] [address] Kasia Nath Vibrio Cholera Not detected Normal NOT DETECTED The [facility] Comment on above: Performed By: #### P OCGLUC #### [facility] [address] [address] [address] Kasia Nath Y. Enterocolitica Not detected Normal NOT DETECTED [facility] Comment on above: Performed By: #### P OCGLUC #### [facility] [address] [address] [address] Kasia Nath OCC BLD IMMUNO SCREENon 04-13 OCCULT BLOOD Negative Normal NEGATIVE [facility] Comment on above: Performed By: #### C BC #### [facility] [address] [place] [address] Dr. Kasia Nath XR knee BI 4Von 08-25-2021 XR knee BI 4V [facility] Other XR knee BI 4V [facility] [employer] Other XR knee BI 4V [address] [place] [address] [employer] works Other XR knee BI 4V [address] [employer] works Other XR knee BI 4V XRay Report [employer] Other XR knee BI 4V Signed [facility] Other XR knee BI 4V Patient: Joe Call MR#: [id number] [place] [employer] works Other XR knee BI 4V 0 [facility] Other XR knee BI 4V : 1945 Acct:[id number] [facility] Other XR knee BI 4V Age/Sex: 76 / F ADM Date: 08/25/21 [facility] Other XR knee BI 4V Loc: [facility] Room: Type : [facility] Other XR knee BI 4V Attending Dr: Akbar Cui II, MD [facility] Other XR knee BI 4V Ordering Provider: Akbar Cui MD [facility] Other XR knee BI 4V Date of Service: 08/25/21 [facility] Other XR knee BI 4V XR/XR knee BI 4V: Pain in right knee;Pain in left knee [facility] Other XR knee BI 4V Copies to: Akbar Cui MD [facility] Other XR knee BI 4V XR knee BI 4V 08/25/2021 1:32 PM [facility] Other XR knee BI 4V SIGNS AND SYMPTOMS: Bilateral knee pain with decreased range of motion, weakness [facility] Other XR knee BI 4V PROTOCOL: Frontal, lateral, and sunrise views of the bilateral knees [facility] Other XR knee BI 4V COMPARISON: None [facility] Other XR knee BI 4V FINDINGS: [facility] Other XR knee BI 4V There is mild narrowing of the medial weightbearing joint spaces. There is mild patellofemoral [facility] Other XR knee BI 4V joint space loss. There is spurring of the poles of the patella bilaterally. There is mild lateral [facility] Other XR knee BI 4V patellar subluxation bilaterally. There is no evidence of acute displaced fracture. Well-corticated [facility] Other XR knee BI 4V ossific structures o r separate from the right medial weightbearing joint space. This may represent a [facility] Other XR knee BI 4V calcified loose bodies. [facility] Other XR knee BI 4V XR/XR knee BI 4V [facility] Other XR knee BI 4V IMPRESSION: [employer] Other XR knee BI 4V Degenerative changes are noted are noted bilaterally, as above. [facility] Other XR knee BI 4V Well-corticated ossific structures or separate from the right medial weightbearing joint space. This [facility] Other XR knee BI 4V may represent a calcified loose bodies. [facility] Other XR knee BI 4V No acute displaced fracture. [facility] Other XR knee BI 4V There is mild latera l subluxation of the patella within the patellofemoral joint space bilaterally. [facility] Other XR knee BI 4V Impression dictated by: Emery Lobo M.D.08/25/2021 2:51 PM [facility] Other XR knee BI 4V Dictation Location: [place] [address] [facility] Other XR knee BI 4V Transcribed By: [facility] 08/25/21 [facility] Other XR knee BI 4V Dictated By: Emery Lobo II, MD 08/25/21 [facility] Other XR knee BI 4V Signed By: [facility] Other XR knee BI 4V 08/25/21 [facility] [employer] [facility] Other XR pelvis 1-2Von 08-25-2021 XR pelvis 1-2V XR/XR pelvis 1-2V: Pain in right knee;Pain in left knee [facility] Other XR pelvis 1-2V XR pelvis 1-2V 08/25/2021 1:32 PM [facility] Other XR pelvis 1-2V SIGNS AND SYMPTOMS: Bilateral generalized knee pain, limited range of motion with weakness [facility] Other XR pelvis 1-2V PROTOCOL: Frontal radiograph of the pelvis [facility] Other XR pelvis 1-2V There is mild narrowing of the weightbearing joint spaces. Mild degenerative changes are noted in [facility] Other XR pelvis 1-2V the symphysis pubis. There is no evidence of fracture or dislocation. Vascular calcifications are [facility] Other XR pelvis 1-2V present in the pelvis. [facility] Other XR pelvis 1-2V XR/XR pelvis 1-2V [facility] Other XR pelvis 1-2V No fracture or dislocation. [facility] Other XR pelvis 1-2V Mild degenerative changes are noted in the joint space of the hips. [facility] Other XR pelvis 1-2V Impression dictated by: Emery Lobo M.D.08/25/2021 2:54 PM [facility] Other XR pelvis 1-2V Transcribed By: RAFAEL 08/25/21 [facility] Other XR pelvis 1-2V Dictated By: Emery Lobo II, MD 08/25/21 [facility] [employer] Other XR pelvis 1-2V 08/25/21 [facility] [employer] Other Vital Signs Date Time Vital Sign Value Performing Clinician Facility 07-07-2024 11:41-0400 Body height 165.1 cm MD Shantel Steven Work Phone: [facility] 07-07-2024 11:41-0400 Body mass index (BMI) [Ratio] 42.4 kg/m2 MD Shantel Steven Work Phone: [facility] 07-07-2024 11:41-0400 Body weight 115.66 kg MD Shantel Steven Work Phone: [facility] 07-07-2024 11:41-0400 Diastolic blood pressure 79 mm[Hg] MD Shantel Steven Work Phone: [facility] 07-07-2024 11:41-0400 Heart rate 66 /min MD Shantel Steven Work Phone: [facility] 07-07-2024 11:41-0400 Systolic blood pressure 132 mm[Hg] MD Shantel Steven Work Phone: [facility] 06-16-2024 13:08-0400 Body height 165.1 cm MD Shantel Steven Work Phone: [facility] 06-16-2024 13:08-0400 Body mass index (BMI) [Ratio] 41.9 kg/m2 MD Shantel Steven Work Phone: [facility] 06-16-2024 13:08-0400 Body weight 114.3 kg MD Shantel Steven Work Phone: [facility] 06-16-2024 13:08-0400 Diastolic blood pressure 73 mm[Hg] MD Shantel Steven Work Phone: [facility] 06-16-2024 13:08-0400 Heart rate 55 /min MD Shantel Steven Work Phone: [facility] 06-16-2024 13:08-0400 Systolic blood pressure 137 mm[Hg] MD Shantel Steven Work Phone: [facility] 06-05-2024 11:51-0400 Body height 165.1 cm MD Shantel Steven Work Phone: [facility] 06-05-2024 11:51-0400 Body mass index (BMI) [Ratio] 43.2 kg/m2 MD Shantel Steven Work Phone: [facility] 06-05-2024 11:51-0400 Body temperature 96.6 [degF] MD Shantel Steven Work Phone: [facility] 06-05-2024 11:51-0400 Body weight 117.7 kg MD Shantel Steven Work Phone: [facility] 06-05-2024 11:51-0400 Diastolic blood pressure 74 mm[Hg] MD Shantel Steven Work Phone: [facility] 06-05-2024 11:51-0400 Heart rate 63 /min MD Shantel Steven Work Phone: [facility] 06-05-2024 11:51-0400 Respiratory rate 18 /min MD Shantel Steven Work Phone: [facility] 06-05-2024 11:51-0400 SaO2% (BldA) [Mass fraction] 97 % MD Shantel Steven Work Phone: [facility] 06-05-2024 11:51-0400 Systolic blood pressure 138 mm[Hg] MD Shantel Steven Work Phone: [facility] 05-22-2024 09:18-0400 Heart rate 55 /min MD Shantel Steven Work Phone: [facility] 05-22-2024 09:09-0400 Body temperature 97.8 [degF] MD Shantel Steven Work Phone: [facility] 05-22-2024 09:09-0400 Diastolic blood pressure 64 mm[Hg] MD Shantel Steven Work Phone: [facility] 05-22-2024 09:09-0400 Respiratory rate 22 /min MD Shantel Steven Work Phone: [facility] 05-22-2024 09:09-0400 SaO2% (BldA) [Mass fraction] 94 % MD Shantel Steven Work Phone: [facility] 05-22-2024 09:09-0400 Systolic blood pressure 140 mm[Hg] MD Shantel Steven Work Phone: [facility] 05-22-2024 09:08-0400 Body height 165.1 cm MD Shantel Steven Work Phone: [facility] 05-22-2024 09:08-0400 Body weight 117.48 kg MD Shantel Steven Work Phone: [facility] 05-19-2024 14:16-0400 Body height 165.1 cm MD Shantel Steven Work Phone: [facility] 05-19-2024 14:16-0400 Body mass index (BMI) [Ratio] 43.1 kg/m2 MD Shantel Steven Work Phone: [facility] 05-19-2024 14:16-0400 Body weight 117.48 kg MD Shantel Steven Work Phone: [facility] 05-19-2024 14:16-0400 Diastolic blood pressure 72 mm[Hg] MD Shantel Steven Work Phone: [facility] 05-19-2024 14:16-0400 Heart rate 56 /min MD Shantel Steven Work Phone: [facility] 05-19-2024 14:16-0400 Systolic blood pressure 133 mm[Hg] MD Shantel Steven Work Phone: [facility] 05-07-2024 11:52-0400 Body height 165.1 cm MD Shantel Steven Work Phone: [facility] 05-07-2024 11:52-0400 Body mass index (BMI) [Ratio] 41.5 kg/m2 MD Shantel Steven Work Phone: [facility] 05-07-2024 11:52-0400 Body temperature 98.5 [degF] MD Shantel Steven Work Phone: [facility] 05-07-2024 11:52-0400 Body weight 113.39 kg MD Shantel Steven Work Phone: [facility] 05-07-2024 11:52-0400 Diastolic blood pressure 81 mm[Hg] MD Shantel Steven Work Phone: [facility] 05-07-2024 11:52-0400 Heart rate 91 /min MD Shantel Steven Work Phone: [facility] 05-07-2024 11:52-0400 Systolic blood pressure 141 mm[Hg] MD Shantel Steven Work Phone: [facility] 04-29-2024 12:54-0400 Body height 165.1 cm MD Shantel Steven Work Phone: [facility] 04-29-2024 12:54-0400 Body mass index (BMI) [Ratio] 41.5 kg/m2 MD Shantel Steven Work Phone: [facility] 04-29-2024 12:54-0400 Body weight 113.39 kg MD Shantel Steven Work Phone: [facility] 04-29-2024 12:54-0400 Diastolic blood pressure 58 mm[Hg] MD Shantel Steven Work Phone: [facility] 04-29-2024 12:54-0400 Heart rate 54 /min MD Shantel Steven Work Phone: [facility] 04-29-2024 12:54-0400 Systolic blood pressure 90 mm[Hg] MD Shantel Steven Work Phone: [facility] 04-03-2024 11:29-0400 Body height 165.1 cm MD Shantel Steven Work Phone: [facility] 04-03-2024 11:29-0400 Body mass index (BMI) [Ratio] 43.7 kg/m2 MD Shantel Steven Work Phone: [facility] 04-03-2024 11:29-0400 Body weight 119.29 kg MD Shantel Steven Work Phone: [facility] 04-03-2024 11:29-0400 Diastolic blood pressure 71 mm[Hg] MD Shantel Steven Work Phone: [facility] 04-03-2024 11:29-0400 Heart rate 56 /min MD Shantel Steven Work Phone: [facility] 04-03-2024 11:29-0400 Systolic blood pressure 116 mm[Hg] MD Shantel Steven Work Phone: [facility] 03-25-2024 15:15-0400 Body height 165.1 cm MD Shantel Steven Work Phone: [facility] 03-25-2024 15:15-0400 Body mass index (BMI) [Ratio] 43.9 kg/m2 MD Shantel Steven Work Phone: [facility] 03-25-2024 15:15-0400 Body weight 119.74 kg MD Shantel Steven Work Phone: [facility] 03-25-2024 15:15-0400 Diastolic blood pressure 87 mm[Hg] MD Shantel Steven Work Phone: [facility] 03-25-2024 15:15-0400 Heart rate 66 /min MD Shantel Steven Work Phone: [facility] 03-25-2024 15:15-0400 Systolic blood pressure 125 mm[Hg] MD Shantel Steven Work Phone: [facility] 02-15-2024 14:18-0400 Body height 165.1 cm [facility] 02-15-2024 14:18-0400 Body mass index (BMI) [Ratio] 38.6 kg/m2 [facility] 02-15-2024 14:18-0400 Body weight 105.23 kg [facility] 02-15-2024 14:18-0400 Diastolic blood pressure 66 mm[Hg] [facility] 02-15-2024 14:18-0400 Heart rate 55 /min [facility] 02-15-2024 14:18-0400 Systolic blood pressure 114 mm[Hg] [facility] 01-18-2024 10:23-0500 Body height 165.1 cm [facility] 01-18-2024 10:23-0500 Body mass index (BMI) [Ratio] 43.2 kg/m2 [facility] 01-18-2024 10:23-0500 Body weight 117.93 kg [facility] 01-18-2024 10:23-0500 Diastolic blood pressure 70 mm[Hg] [facility] 01-18-2024 10:23-0500 Heart rate 98 /min [facility] 01-18-2024 10:23-0500 SaO2% (BldA) [Mass fraction] 65 % [facility] 01-18-2024 10:23-0500 Systolic blood pressure 110 mm[Hg] [facility] 10-23-2023 16:00-0500 Body height 165.1 cm Aziz Bakhous Other [facility] Other 10-23-2023 16:00-0500 Body mass index (BMI) [Ratio] 44.63 kg/m2 Aziz Bakhous Other [facility] Other 10-23-2023 16:00-0500 Body temperature 96.8 [degF] Aziz Bakhous Other [facility] Other 10-23-2023 16:00-0500 Body weight 121.66 kg Aziz Bakhous Other [facility] Other 10-23-2023 16:00-0500 Diastolic blood pressure 60 mm[Hg] Aziz Bakhous Other [facility] Other 10-23-2023 16:00-0500 Respiratory rate 18 /min Aziz Bakhous Other [facility] Other 10-23-2023 16:00-0500 SaO2% (BldA) [Mass fraction] 99 % Aziz Bakhous Other [facility] Other 10-23-2023 16:00-0500 Systolic blood pressure 124 mm[Hg] Aziz Bakhous Other [facility] Other 10-18-2023 13:45-0500 Body height 165.1 cm Shantel Steven Other [facility] Other 10-18-2023 13:45-0500 Body mass index (BMI) [Ratio] 44.86 kg/m2 Shantel Steven Other [facility] Other 10-18-2023 13:45-0500 Body temperature 97.3 [degF] Shantel Steven Other [facility] Other 10-18-2023 13:45-0500 Body weight 122.29 kg Shantel Steven Other [facility] Other 10-18-2023 13:45-0500 Diastolic blood pressure 84 mm[Hg] Shantel Steven Other [facility] Other 10-18-2023 13:45-0500 SaO2% (BldA) [Mass fraction] 97 % Shantel Steven Other [facility] Other 10-18-2023 13:45-0500 Systolic blood pressure 132 mm[Hg] Shantel Steven Other [facility] Other 09-04-2023 14:00-0400 Body height 165.1 cm Shantel Steven Other [facility] Other 09-04-2023 14:00-0400 Body mass index (BMI) [Ratio] 43.06 kg/m2 Shantel Steven Other [facility] Other 09-04-2023 14:00-0400 Body weight 117.39 kg Shantel Steven Other [facility] Other 09-04-2023 14:00-0400 Diastolic blood pressure 69 mm[Hg] Shantel Steven Other [facility] Other 09-04-2023 14:00-0400 Systolic blood pressure 127 mm[Hg] Shantel Steven Other [facility] Other 07-17-2023 10:00-0400 Body height 165.1 cm Shantel Steven Other [facility] Other 07-17-2023 10:00-0400 Body mass index (BMI) [Ratio] 43.03 kg/m2 Shantel Steven Other [facility] Other 07-17-2023 10:00-0400 Body weight 117.3 kg Shantel Steven Other [facility] Other 07-17-2023 10:00-0400 Diastolic blood pressure 76 mm[Hg] Shantel Steven Other [facility] Other 07-17-2023 10:00-0400 Systolic blood pressure 164 mm[Hg] Shantel Steven Other [facility] Other 04-30-2023 14:30-0400 Body height 165.1 cm Shantel Steven Other [facility] Other 04-30-2023 14:30-0400 Body mass index (BMI) [Ratio] 43.43 kg/m2 Shantel Steven Other [facility] Other 04-30-2023 14:30-0400 Body weight 118.39 kg Shantel Steven Other [facility] Other 04-30-2023 14:30-0400 Diastolic blood pressure 75 mm[Hg] Shantel Steven Other [facility] Other 04-30-2023 14:30-0400 Systolic blood pressure 135 mm[Hg] Shantel Steven Other [facility] Other 03-09-2023 12:15-0400 Body height 165.1 cm Shantel Steven Other [facility] Other 03-09-2023 12:15-0400 Body mass index (BMI) [Ratio] 43.59 kg/m2 Shantel Steven Other [facility] Other 03-09-2023 12:15-0400 Body weight 118.84 kg Shantel Steven Other [facility] Other 03-09-2023 12:15-0400 Diastolic blood pressure 82 mm[Hg] Shantel Steven Other [facility] Other 03-09-2023 12:15-0400 SaO2% (BldA) [Mass fraction] 97 % Shantel Steven Other [facility] Other 03-09-2023 12:15-0400 Systolic blood pressure 130 mm[Hg] Shantel Steven Other [facility] Other 02-20-2023 10:00-0400 Body height 165.1 cm Shantel Steven Other [facility] Other 02-20-2023 10:00-0400 Body mass index (BMI) [Ratio] 41.93 kg/m2 Shantel Steven Other [facility] Other 02-20-2023 10:00-0400 Body weight 114.31 kg Shantel Steven Other [facility] Other 02-20-2023 10:00-0400 Diastolic blood pressure 84 mm[Hg] Shantel Steven Other [facility] Other 02-20-2023 10:00-0400 Systolic blood pressure 132 mm[Hg] Shantel Steven Other [facility] Other 08-04-2022 13:33-0400 Blood Pressure Location [facility] 08-04-2022 13:33-0400 Diastolic blood pressure 88 mm[Hg] [facility] 08-04-2022 13:33-0400 Heart rate 76 /min [facility] 08-04-2022 13:33-0400 Respiratory rate 16 /min [facility] 08-04-2022 13:33-0400 Systolic blood pressure 130 mm[Hg] [facility] 08-25-2021 14:30-0400 Body height 165.1 cm Akbar Cui II Other [facility] Other 08-25-2021 14:30-0400 Body mass index (BMI) [Ratio] 43.26 kg/m2 Akbar Cui II Other [facility] Other 08-25-2021 14:30-0400 Body weight 117.94 kg Akbar Cui II Other [facility] Other Encounters Encounter Date Encounter Type Care Provider Facility Start: 07-07-2024 End: 07-07-2024 ambulatory MD Shantel Steven Work Phone: [facility] Work Phone: Start: 07-07-2024 End: 07-07-2024 Patient encounter procedure MD Shantel Steven Work Phone: [facility] Work Phone: Start: 06-25-2024 ambulatory MD Shantel gray Work Phone: [facility] Work Phone: Start: 06-25-2024 Non-patient / Non-visit MD Alessia Steven Work Phone: [facility] Work Phone: Start: 06-24-2024 Non-patient / Non-visit MD Alessia Steven Work Phone: [facility] Work Phone: Start: 06-18-2024 End: 06-18-2024 ambulatory [facility] Start: 06-16-2024 End: 06-16-2024 ambulatory MD Shantel Steven Work Phone: [facility] Work Phone: Start: 06-16-2024 End: 06-16-2024 Patient encounter procedure MD Shantel Steven Work Phone: [facility] Work Phone: Start: 06-16-2024 End: 06-16-2024 MD Shantel Steven Work Phone: [facility] Work Phone: Start: 06-10-2024 Non-patient / Non-visit MD Alessia Steven Work Phone: [facility] Work Phone: Start: 06-10-2024 MD Shantel painting Work Phone: [facility] Work Phone: Start: 06-09-2024 Non-patient / Non-visit MD Alessia Steven Work Phone: [facility] Work Phone: Start: 06-09-2024 MD Shantel painting Work Phone: [facility] Work Phone: Start: 06-05-2024 End: 06-05-2024 ambulatory MD Shantel Steven Work Phone: [facility] Work Phone: Start: 06-05-2024 End: 06-05-2024 Patient encounter procedure MD Shantel Steven Work Phone: [facility] Work Phone: Start: 06-05-2024 End: 06-05-2024 MD Shantel Steven Work Phone: [facility] Work Phone: Start: 06-01-2024 Non-patient / Non-visit MD Alessia Steven Work Phone: [facility] Work Phone: Start: 06-01-2024 MD Shantel painting Work Phone: [facility] Work Phone: Start: 05-26-2024 Non-patient / Non-visit MD Alessia Steven Work Phone: [facility] Work Phone: Start: 05-26-2024 MD Shantel painting Work Phone: [facility] Work Phone: Start: 05-22-2024 End: 05-22-2024 Emergency department patient visit MD Shantel Steven Work Phone: [facility] Work Phone: Start: 05-22-2024 End: 05-22-2024 MD Shantel Steven Work Phone: [facility] Work Phone: Start: 05-20-2024 Non-patient / Non-visit MD Alessia Steven Work Phone: [facility] Work Phone: Start: 05-20-2024 MD Shantel painting Work Phone: [facility] Work Phone: Start: 05-20-2024 End: 05-20-2024 ambulatory [facility] Start: 05-19-2024 End: 05-19-2024 ambulatory MD Shantel Steven Work Phone: [facility] Work Phone: Start: 05-19-2024 End: 05-19-2024 Patient encounter procedure MD Shantel Steven Work Phone: [facility] Work Phone: Start: 05-19-2024 End: 05-19-2024 MD Shantel Steven Work Phone: [facility] Work Phone: Start: 05-07-2024 End: 05-07-2024 ambulatory MD Shantel Steven Work Phone: [facility] Work Phone: Start: 05-07-2024 End: 05-07-2024 Patient encounter procedure MD Shantel Steven Work Phone: [facility] Work Phone: Start: 05-07-2024 End: 05-07-2024 MD Shantel Steven Work Phone: [facility] Work Phone: Start: 05-06-2024 Non-patient / Non-visit MD Alessia Steven Work Phone: [facility] Co Work Phone: Start: 05-06-2024 MD Shantel painting Work Phone: [facility] Work Phone: Start: 05-05-2024 Non-patient / Non-visit MD Alessia Steven Work Phone: [facility] Work Phone: Start: 05-05-2024 MD Shantel Bajwa n Work Phone: [facility] Work Phone: Start: 05-04-2024 Non-patient / Non-visit MD Alessia Steven Work Phone: [facility] Work Phone: Start: 05-04-2024 MD Shantel Bajwa n Work Phone: [facility] Work Phone: Start: 05-02-2024 Non-patient / Non-visit MD Alessia Steven Work Phone: [facility] Work Phone: Start: 05-02-2024 MD Shantel Bajwa n Work Phone: [facility] Work Phone: Start: 05-01-2024 Non-patient / Non-visit MD Alessia Steven Work Phone: [facility] Work Phone: Start: 05-01-2024 MD Shantel Bajwa n Work Phone: [facility] Work Phone: Start: 04-30-2024 Non-patient / Non-visit MD Alessia Steven Work Phone: [facility] Work Phone: Start: 04-30-2024 MD Shantel painting Work Phone: [facility] Work Phone: Start: 04-29-2024 End: 04-29-2024 Patient encounter procedure MD Shantel Steven Work Phone: [facility] Work Phone: Start: 04-29-2024 End: 04-29-2024 MD Shantel Steven Work Phone: [facility] Work Phone: Start: 04-03-2024 End: 04-03-2024 ambulatory MD Shantel Steven Work Phone: [facility] Work Phone: Start: 04-03-2024 End: 04-03-2024 Patient encounter procedure MD Shantel Steven Work Phone: [facility] Work Phone: Start: 04-03-2024 End: 04-03-2024 MD Shantel Steven Work Phone: [facility] Work Phone: Start: 04-01-2024 Non-patient / Non-visit MD Alessia Steven Work Phone: [facility] Work Phone: Start: 04-01-2024 MD Shantel painting Work Phone: [facility] Work Phone: Start: 03-31-2024 Non-patient / Non-visit MD Alessia Steven Work Phone: [facility] Work Phone: Start: 03-31-2024 MD Shantel painting Work Phone: [facility] Work Phone: Start: 03-28-2024 Non-patient / Non-visit MD Alessia Steven Work Phone: [facility] Work Phone: Start: 03-28-2024 MD Shantel painting Work Phone: [facility] Work Phone: Start: 03-27-2024 Non-patient / Non-visit MD Alessia Steven Work Phone: [facility] Work Phone: Start: 03-27-2024 MD Shantel painting Work Phone: [facility] Work Phone: Start: 03-26-2024 Non-patient / Non-visit MD Alessia Steven Work Phone: [facility] Work Phone: Start: 03-26-2024 MD Shantel painting Work Phone: [facility] Work Phone: Start: 03-25-2024 End: 03-25-2024 Patient encounter procedure MD Shantel Steven Work Phone: [facility] Work Phone: Start: 03-25-2024 End: 03-25-2024 MD Shantel Steven Work Phone: [facility] Work Phone: Start: 03-13-2024 End: 03-13-2024 Patient encounter procedure MD Shantel Steven Work Phone: [facility] [address] Work Phone: Start: 03-13-2024 End: 03-13-2024 ambulatory MD Shantel Steven Work Phone: [facility] Work Phone: Start: 03-07-2024 End: 03-07-2024 ambulatory [facility] Start: 02-19-2024 ambulatory Facility:Jenny Browning Start: 02-15-2024 End: 02-15-2024 ambulatory [facility] Work Phone: Start: 02-15-2024 End: 02-15-[address] [facility] Work Phone: Start: 01-29-2024 Non-patient / Non-visit [facility] Work Phone: Start: 01-24-2024 Non-patient / Non-visit [facility] Work Phone: Start: 01-22-2024 Non-patient / Non-visit [facility] Work Phone: Start: 01-18-2024 End: 01-18-[address] [facility] Work Phone: Start: 01-15-2024 Non-patient / Non-visit [facility] Work Phone: Start: 01-04-2024 Non-patient / Non-visit [facility] Work Phone: Start: 12-18-2023 End: 12-18-2023 ambulatory Shantel Steven Other [facility] Other Start: 12-18-2023 Telephone encounter Shantel Steven [facility] Start: 11-19-2023 End: 11-19-2023 ambulatory Shantel Steven Other [facility] Other Start: 11-19-2023 Telephone encounter Shantel Steven [facility] Start: 10-23-2023 End: 10-23-2023 ambulatory Jaleesa Vanessa Other [facility] Other Start: 10-23-2023 Office outpatient ne w 30 minutes Néstorghassan Nhunglovebuffy [facility] Start: 10-22-2023 End: 10-22-2023 ambulatory Shantel Steven Other [facility] Other Start: 10-22-2023 Telephone encounter Shantel Steven [facility] Start: 10-18-2023 End: 10-18-2023 ambulatory Shantel Steven Other [facility] Other Start: 10-18-2023 Office outpatient vi sit 15 minutes Shantel Steven [facility] Start: 09-07-2023 End: 09-07-2023 ambulatory Shantel Steven Other [facility] Other Start: 09-07-2023 Telephone encounter Shantel Steven [facility] Start: 09-04-2023 End: 09-04-2023 ambulatory Shantel Tenisha Other [facility] Other Start: 09-04-2023 Office outpatient vi sit 25 minutes Shantel Steven [facility] Start: 08-23-2023 End: 08-23-2023 ambulatory Shantel Tenisha Other [facility] Other Start: 08-23-2023 Telephone encounter Shantel Steven [facility] Start: 08-17-2023 End: 08-17-2023 ambulatory [facility] Start: 07-23-2023 Telephone encounter Shantel Steven [facility] Start: 07-23-2023 End: 07-23-2023 ambulatory [facility] Other Start: 07-17-2023 End: 07-17-2023 ambulatory Shantel Steven Other [facility] Other Start: 07-17-2023 Office outpatient vi sit 25 minutes Shantel Steven [facility] Start: 05-30-2023 End: 05-30-2023 ambulatory Shantel Steven Other [facility] Other Start: 05-30-2023 Telephone encounter Shantel Steven [facility] Start: 05-22-2023 End: 05-22-2023 ambulatory Shantel Steven Other [facility] Other Start: 05-22-2023 Telephone encounter Shantel Steven [facility] Start: 05-16-2023 End: 05-16-2023 ambulatory Shantel Steven Other [facility] Other Start: 05-16-2023 Telephone encounter Shantel Steven [facility] Start: 05-07-2023 End: 05-07-2023 ambulatory Shantel Steven Other [facility] Other Start: 05-07-2023 Telephone encounter Shantel Steven [facility] Start: 04-30-2023 End: 04-30-2023 ambulatory Shantel Steven Other [facility] Other Start: 04-30-2023 Office outpatient vi sit 25 minutes Shantel Steven [facility] Start: 04-25-2023 End: 04-25-2023 ambulatory Shantel Steven Other [facility] Other Start: 04-25-2023 Telephone encounter Shantel Steven [facility] Start: 04-12-2023 End: 04-12-2023 ambulatory Shantel Steven Other [facility] Other Start: 04-12-2023 Telephone encounter Shantel Steven [facility] Start: 03-09-2023 End: 03-09-2023 ambulatory Shantel Steven Other [facility] Other Start: 03-09-2023 Office outpatient vi sit 15 minutes Shantel Steven [facility] Start: 03-07-2023 End: 03-07-2023 ambulatory Shantel Steven Other [facility] Other Start: 03-07-2023 Telephone encounter Shantel Steven [facility] Start: 03-06-2023 End: 03-06-[address] SHANTEL STEVEN Facility:[facility] Start: 03-05-2023 End: 03-05-2023 ambulatory Shantel Steven Other [facility] Other Start: 03-05-2023 Telephone encounter Shantel Steven [facility] Start: 02-26-2023 End: 02-26-2023 ambulatory Shantel Steven Other [facility] Other Start: 02-26-2023 Telephone encounter Shantel Steven [facility] Start: 02-24-2023 End: 02-24-[address] SHANTEL STEVEN Facility:[facility] Start: 02-23-2023 End: 02-23-2023 ambulatory Shantel Steven Other [facility] Other Start: 02-23-2023 Telephone encounter Shantel Steven [facility] Start: 02-20-2023 End: 02-20-2023 ambulatory Shantel Steven Other [facility] Other Start: 02-20-2023 Transitional care luz cabral [facility] 14 day discharge Shantel Steven [facility] Start: 02-16-2023 End: 02-16-2023 ambulatory Shantel Steven Other [facility] Other Start: 02-16-2023 Telephone encounter Shantel Steven [facility] Start: 02-13-2023 End: 02-14-[address] SHANTEL STEVEN Facility:[facility] Start: 02-02-2023 End: 02-02-2023 ambulatory Shantel Steven Other [facility] Other Start: 02-02-2023 Telephone encounter Shantel Steven [facility] Start: 01-16-2023 End: 01-17-[address] DOCTOR CARMONA Facility:[facility] Start: 01-05-2023 End: 01-05-2023 ambulatory BIN ROJAS Facility:[facility] Start: 01-01-2023 End: 01-02-2023 ambulatory ANALISA BRYANT Facility:[facility] Start: 11-29-2022 End: 11-29-2022 ambulatory Shantel Steven Other [facility] Other Start: 11-29-2022 Telephone encounter Shantel Steven [facility] Start: 11-27-2022 End: 11-27-2022 ambulatory Shantel Steven Other [facility] Other Start: 11-27-2022 Telephone encounter Shantel Steven [facility] Start: 11-24-2022 End: 11-24-2022 ambulatory Shantel Steven Other [facility] Other Start: 11-24-2022 Telephone encounter Shantel Steven [facility] Start: 11-06-2022 ambulatory YAMEL MCCRACKEN Facility :[facility] Start: 09-15-2022 End: 09-16-[address] SHANTEL STEVEN Facility:[facility] Start: 08-04-2022 End: 08-04-2022 Patient encounter procedure Bin SORENSON General Surgery [place]/Adenike Becker Start: 05-02-2022 End: 05-02-[address] SHANTEL STEVEN Facility:[facility] Start: 08-25-2021 Office outpatient ne w 45 minutes Ak[address] Cui II [facility] Start: 08-09-2017 End: 08-12-2017 Ambulatory PROVIDER UNKNOWN Facility:[facility] Procedures Date Procedure Procedure Detail [...] Activity Detail Author Start: 06-25-2024 Patient referral [facility] Work Phone: Start: 06-16-2024 Patient referral [facility] Work Phone: Start: 05-07-2024 Patient referral [facility] Work Phone: Start: 05-04-2024 Blood Culture 1 Blood Culture 1 [facility] Start: 02-15-2024 Patient referral [facility] Work Phone: Comprehensive metabo lic 1999 panel - Serum or Plasma [facility] CT Abdomen and Pelvi s WO contrast [facility] Microalbumin [Mass/v olume] in Urine [facility] Patient referral [facility] Work Phone: Renal function 1999 panel - Serum or Plasma [facility] Immunizations Immunization Date Immunization Notes Care Provider Fa cility 01-18-2024 Pneumococcal Conjugate Vaccine, [address] [facility] 09-04-2023 influenza, high dose seasonal, preservative-free Shantel Steven Other [facility] Other 09-04-2023 influenza virus vaccine, unspecified formulation [facility] 02-04-2021 COVID-19 mRNA, Comirnaty (Pfizer) [facility] 01-21-2021 COVID-19 mRNA, Comirnaty (Pfizer) [facility] 10-09-2018 influenza virus vaccine, split virus (incl. purified surface antigen) Shantel Steven Other [facility] Other 10-09-2018 influenza virus vaccine, unspecified formulation [facility] NEGATED: Highlighted row has not occurred!08-21-2019 influenza virus vaccine, split virus (incl. purified surface antigen) Shantel Steven Other [facility] Other Payers Date Payer Category Payer Self-pay [id number] 1958 Medicare [id number] 1958 Self-pay [id number] 1945 Unknown [id number] 2.16.84 [id number] 1945 Unknown [id number] 2.16.84 [id number] 1945 Unknown [id number] 2.16.84 [id number] 1946 Unknown [id number] 2.16.84 [id number] 1946 Unknown [id number] 2.16.84 [id number] 1946 Unknown [id number] 2.16.84 [id number] 1946 Unknown [id number] 2.16.84 [id number] 1946 Unknown [id number] 2.16.84 [id number] 1945 Unknown [id number] 2.16.84 [id number] Unknown Unknown [id number] 2.16.8 [id number] Unknown [id number] 2.16.8 [id number] Social History Date Type Detail Facility Sex Assigned At [facility] Other Start: 08-04-2022 End: 06-05-2024 Tobacco smoking status Ex-smoker (finding) [facility] Tobacco smoking status Never [facility] Start: 1945 Sex Assigned At Female F [facility] Medical Equipment Procedure Code Equipment Code Equipment Origin al Text Equipment Identifier Dates Blood Sugar Diagnostic (True Metrix Glucose Test Strip) strip Start: 03-31-2024 Pen Needle, Diab etic (Comfort Ez Pen [place]) 33 gauge x 5/32 needle Start: 03-25-2024 Blood Sugar Diagnostic (True Metrix Glucose Test Strip) strip Start: 03-31-2024 End: 03-31-2024 Blood Sugar Diagnostic (True Metrix Glucose Test Strip) strip Start: 03-31-2024 Pen Needle, Diab etic (Comfort Ez Pen [place]) 33 gauge x 5/32 needle Start: 03-25-2024 Blood Sugar Diagnostic (True Metrix Glucose Test Strip) strip Start: 03-31-2024 End: 03-31-2024 Blood Sugar Diagnostic (True Metrix Glucose Test Strip) strip Start: 03-31-2024 Pen Needle, Diab etic (Comfort Ez Pen [place]) 33 gauge x 5/32 needle Start: 03-25-2024 Blood Sugar Diagnostic (True Metrix Glucose Test Strip) strip Start: 03-31-2024 End: 03-31-2024 Blood Sugar Diagnostic (True Metrix Glucose Test Strip) strip Start: 03-31-2024 Pen Needle, Diab etic (Comfort Ez Pen [place]) 33 gauge x 5/32 needle Start: 03-25-2024 Blood Sugar Diagnostic (True Metrix Glucose Test Strip) strip Start: 03-31-2024 End: 03-31-2024 Blood Sugar Diagnostic (True Metrix Glucose Test Strip) strip Start: 03-31-2024 Pen Needle, Diab etic (Comfort Ez Pen [place]) 33 gauge x 5/32 needle Start: 03-25-2024 Blood Sugar Diagnostic (True Metrix Glucose Test Strip) strip Start: 03-31-2024 End: 03-31-2024 Blood Sugar Diagnostic (True Metrix Glucose Test Strip) strip Start: 03-31-2024 Pen Needle, Diab etic (Comfort Ez Pen [place]) 33 gauge x 5/32 needle Start: 03-25-2024 Blood Sugar Diagnostic (True Metrix Glucose Test Strip) strip Start: 03-31-2024 End: 03-31-2024 Blood Sugar Diagnostic (True Metrix Glucose Test Strip) strip Start: 03-31-2024 Pen Needle, Diab etic (Comfort Ez Pen [place]) 33 gauge x 5/32 needle Start: 03-25-2024 Blood Sugar Diagnostic (True Metrix Glucose Test Strip) strip Start: 03-31-2024 End: 03-31-2024 Functional Status Date Assessment Result Facility 08-04-2022 Functional Status N/A General [facility] Clinical Notes 08-25-2021 to 06-18-2024 Note Date & Type Note Facility 06-18-2024 Note [facility] Subjective Joe Bela Call is a 78 y.o. year old female patient being seen for 1 mo follow up acute on chronic diastolic heart failure, CAD, and CARMELO. She's presented to [facility] ED several times over the past [...] Hordeolum externum (stye) Immunization due Lactose intolerance detention (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 insulin (CMS/HCC) Lumbar degenerative [...] prior cardiac catheterizations. She has history of [place] in the past and underwent balloon angioplasty (many years ago, prior to the stent era). 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 In December 2022 she was admitted to the [facility] with decompensated diastolic heart failure, she was treated with diuretic therapy. In February 2023 she was admitted to [facility] with dehydration secondary to acute gastroenteritis. She also had acute kidney injury in that setting. She has history of breast cancer more than 25 years ago s/p mastectomy, chemo and radiation therapy. She has lymphedema in the left arm. In the past she saw a administrative representative for bleeding behind the eye . she [...] April 2024 she was admitted to the [facility] with increasing weakness and altered mental status. She also had acute renal insufficiency. She had UTI secondary to E. coli. She was admitted again to the [facility] on 06/09/2020 for with acute on chronic [...] She is well-develo (more content not included)... [facility] 05-20-2024 Note BMP today to assess renal function and electrolytes [facility] 05-20-2024 Note Heart failure is unc hanged. NYHA Class II. Continue current treatment regimen. Dietary sodium restriction. Encouraged daily monitoring of the patient's weight. Continue current medications. Heart failure will be reassessed in 1 month. BMP to assess renal function and electrolytes today to see if can uptitrate GDMT- in light Lasix, lisinopril and aldactone on hold from recent hospitalization [facility] 05-20-2024 Note Coronary artery dise ase is unchanged. Continue current medications. Continue GDMT- lipitor, metoprolol continue risk factor modifications- heart healthy diet, regular exercise as tolerated and continue all medications. [facility] 05-20-2024 Note Lipid abnormalities are unchanged. Pharmacotherapy as ordered. Continue lipitor [facility] 05-20-2024 Note [facility] CARDIOLOGY PROGR ESS NOTE HPI: Joe Call is a 78 y.o. female here for hospital F/U HPI: Patient here for follow up [facility] for renal failure. She was also discharged back in March 2024 for CHF. Lisinopril, spironolactone, and furosemide were stopped during one of the admissions. She denies chest pain, SOB, and LE edema. Denies lightheadedness, syncope, and bleeding on Xarelto. Feels much better s/p hospital stay. Palpitations are no more than usual for her. She will be seeing her activities aide (Dr. Rapp) on 06/05/2024. Currently weight is [...] prior cardiac catheterizations. She has history of [place] in the past and underwent balloon angioplasty (many years ago, prior to the stent era). 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 In December 2022 she was admitted to the [facility] with decompensated diastolic heart failure, she was treated with diuretic therapy. In February 2023 she was admitted to [facility] with dehydration secondary to acute gastroenteritis. She also had acute kidney injury in that setting. She has history of breast cancer more than 25 years ago s/p mastectomy, chemo and radiation therapy. She has lymphedema in the left arm. In the past she saw a administrative representative for bleeding behind the eye . she [...] 2.3 m??? Allergie (more content not included)... [facility] 05-20-2024 Note Patient here for [facility] for renal failure. She was also discharged back in March 2024 for CHF. Lisinopril, spironolactone, and furosemide were stopped during one of the admissions. She denies chest pain, SOB, and LE edema. Denies lightheadedness, syncope, and bleeding on Xarelto. Feels much better s/p hospital stay. Palpitations are no more than usual for her. She will be seeing her activities aide (Dr. Rapp) on 06/05/2024. Review of Systems Cardiovascular: Positive for palpitations. Musculoskeletal: Positive for muscle weakness. All other systems reviewed and are negative. [facility] 03-07-2024 Note [facility] Subjective Joe Call is a 78 [...] prior cardiac catheterizations. She has history of [place] in the past and underwent balloon angioplasty (many years ago, prior to the stent era). 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 In December 2022 she was admitted to the [facility] with decompensated diastolic heart failure, she was treated with diuretic therapy. In February 2023 she was admitted to [facility] with dehydration secondary to acute gastroenteritis. She also had acute kidney injury in that setting. She has history of breast cancer more than 25 years ago s/p mastectomy, chemo and radiation therapy. She has lymphedema in the left arm. In the past she saw a administrative representative for bleeding behind the eye . she [...] TIMES DAILY NEEDED (more content not included)... [facility] 02-15-2024 Hospital Discharge instructions Ambulatory OrdersReferral to Urology Time Frame: 02/15/24, Location: None [facility] Work Phone: 11-19-2023 Evaluation note Encounter Date Diagnosis Assessment Notes Nov, Lumbar degenerative disc disease (ICD-10 - M51.36) [facility] Other 12-12-2023 Evaluation note* Encounter Date Diagnosis [...] will check vitamin B12 level next visit [facility] Other 12-11-2023 Evaluation note* Encounter Date Diagnosis Assessment Notes Treatment Notes Treatment Clinical Notes Oct, Lumbar degenerative disc disease (ICD-10 - M51.36) [facility] Other 12-07-2023 Evaluation note* Encounter Date Diagnosis Assessment Notes Treatment Notes Treatment Clinical Notes Oct, Bronchitis (ICD-10 - J40) Finish meds. No acute need for antibiotic at this time Oct, Diabetes mellitus with chronic kidney disease (ICD-10 - E11.22) Due for labs, followup w Dr. Mcconnell Oct, Lumbar degenerative disc disease (ICD-10 - M51.36) Pt will contact neurosurgery. [facility] Other 10-27-2023 Evaluation note* Encounter Date Diagnosis Assessment Notes Treatment Notes Treatment Clinical Notes Aug, Chronic kidney disease, stage 4 (severe) (ICD-10 - N18.4) [facility] Other 10-24-2023 Evaluation note* Encounter Date Diagnosis [...] (ICD-10 - M51.36) Pt requests referral to [facility]. Reviewed [facility] report. Aug, Stress incontinence of urine (ICD-10 - N39.3) R/o infection. Discussed could be related to her diabetes med as well. [facility] Other 10-12-2023 Evaluation note* Encounter Date Diagnosis Assessment Notes Treatment Notes Treatment Clinical Notes Aug, Lumbar degenerative disc disease (ICD-10 - M51.36) [facility] Other 10-06-2023 NoteCardiology Clinic Note Subjective Joe [...] was admitted to [facility] with dehydration secondary to acute gastroenteritis. She also had acute kidney injury in that setting. She has history of breast cancer more than 25 years ago s/p mastectomy, chemo and radiation therapy. She has lymphedema in the left arm. She has been doing well. No chest pain. No dyspnea. No palpitations. She reports that she is seeing a administrative representative for bleeding behind the eye . She has had a lot of balance issues, uses a walker to ambulate and has had about 10 falls in the past year. Update: 07/23/2023 She was admitted to [facility] 07/08-07/10/2023 for decompensated HFpEF She was [...] with questions Was prescribed Farxiga by her wall taper but did not start after reading about [...] DAYS, Disp: , Rfl (more content not included)...[facility]10-06-2023 NotePatient here for 1 mo follow up CAD, chronic diastolic heart failure, and PAF. Follow up labs have not been completed yet. Her wall taper recently started her on Farxiga but she [...] light-headedness. All other systems reviewed and are negative.[place] [facility] [facility]* Encounter Date Diagnosis Assessment Notes Treatment Notes Treatment Clinical Notes Jul, Lumbar degenerative disc disease (ICD-10 - M51.36) Posterous Other 09-11-2023 NotePatient here for follow up [facility] for CHF. She was seen as [...] weakness. All other systems reviewed and are negative.[facility] 07-23-2023 NoteCardiology Clinic Note Subjective Joe [...] was admitted to [facility] with dehydration secondary to acute gastroenteritis. She also had acute kidney injury in that setting. She has history of breast cancer more than 25 years ago s/p mastectomy, chemo and radiation therapy. She has lymphedema in the left arm. She has been doing well. No chest pain. No dyspnea. No palpitations. She reports that she is seeing a administrative representative for bleeding behind the eye . She has had a lot of balance issues, uses a walker to ambulate and has had about 10 falls in the past year. Update: 07/23/2023 She was admitted to [facility] 07/08-07/10/2023 for decompensated HFpEF She was [...] time each day., Disp: (more content not included)...[facility]09-05-2023 Evaluation note* Encounter Date Diagnosis Assessment [...] refill. Oarrs reviewed. No med changes needed. Posterous Other 07-05-2023 Evaluation note* Encounter Date Diagnosis Assessment Notes Treatment Notes Treatment Clinical Notes May, C. difficile colitis (ICD-10 - A04.72) Posterous Other 06-19-2023 Evaluation note* Encounter Date Diagnosis Assessment Notes Treatment Notes Treatment Clinical Notes Apr, Skin candidiasis (ICD-10 - B37.2) Discussed this is related to her hyperglycemia. Will treat w nystatin, but needs improvement in diet and glucose readings. Apr, Type 2 diabetes mellitus with hyperglycemia, unspecified whether emt intermediate insulin use (ICD-10 - E11.65) Pt agrees to see Dr Mcconnell again. Recently sent to ER for glucose of 608. Apr, Tremor of both hands (ICD-10 - R25.1) Referral to Dr. Lopez Apr, Memory changes (ICD- 10 - R41.3) Referral to Dr. Lopez Apr, Gastroesophageal reflux disease without esophagitis (ICD-10 - K21.9) Improved on carafate w PPI. Posterous Other 06-01-2023 Evaluation note* Encounter Date Diagnosis Assessment Notes Treatment Notes Treatment Clinical Notes Apr, Gastroesophageal ref lux disease without esophagitis (ICD-10 - K21.9) Posterous Other 04-28-2023 Evaluation note* Encounter Date Diagnosis [...] get lab ordered on 02/20 today Feb, detention (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 insulin (ICD-10 - Z79.4) Posterous Other 04-26-2023 Evaluation note* Encounter Date Diagnosis Assessment Notes Treatment Notes Treatment Clinical Notes Feb, C. difficile colitis (ICD-10 - A04.72) Posterous Other 04-17-2023 Evaluation note* Encounter Date Diagnosis Assessment Notes Treatment Notes Treatment Clinical Notes 17 Feb, 2023 Gastroesophageal ref lux disease without esophagitis (ICD-10 - K21.9) Posterous Other 04-14-2023 Evaluation note* Encounter Date Diagnosis Assessment Notes Treatment Notes Treatment Clinical Notes 14 Feb, 2023 Chronic diarrhea (ICD-10 - K52.9) Posterous Other 04-11-2023 Evaluation note* Encounter Date Diagnosis [...] it really overall has not been helpful. Posterous Other 01-13-2023 Evaluation note* Encounter Date Diagnosis Assessment Notes Treatment Notes Treatment Clinical Notes Nov, Type 2 diabetes mellitus with hyperglycemia, unspecified whether emt intermediate insulin use (ICD-10 - E11.65) Posterous Other 10-14-2021 Evaluation note* Encounter Date Diagnosis [...] training 6. Follow up in 3 months. Posterous Other Evaluation + Plan note No data available for this section General Surgery [facility] Evaluation noteNo InformationNort EQ works Other Evaluation noteNort EQ works Other Evaluation noteNort EQ works Other Evaluation note* Diagnosis Onset Date Resolution Status Chalazion of right eye acute Immunization due acute Urinary incontinence acute [facility] Work Phone: Evaluation note* Diagnosis Onset Date Resolution Status Chalazion of right eye acute Immunization due acute Urinary incontinence acute Diabetes mellitus with hyperglycemia acute Hypertension acute Hypothyroidism acute Lumbar spondylosis acute Secondary hyperparathyroidism acute [facility] Work Phone: Evaluation note* Diagnosis Onset Date [...] acute Thrush of mouth and esophagus acute [facility] Work Phone: Evaluation note* Diagnosis Onset Date [...] IV acute UTI (urinary tract infection) acute [facility] Work Phone: Evaluation note* Diagnosis Onset Date [...] acute Thrush of mouth and esophagus acute [id number] acute Secondary hyperparathyroidism acute [facility] Work Phone: Evaluation note* Diagnosis Onset Date [...] acute Thrush of mouth and esophagus acute [id number] acute CKD (chronic kidney disease) stage 3, GFR 30-59 ml/min acute Hyperlipidemia acute [id number] acute Secondary hyperparathyroidism acute Type 2 diabetes mellitus wit h diabetic chronic kidney disease acute Tremor acute [facility] Work Phone: Evaluation note* Diagnosis Onset Date [...] acute Thrush of mouth and esophagus acute [id number] acute CKD (chronic kidney disease) stage 3, GFR 30-59 ml/min acute Hyperlipidemia acute [id number] acute Secondary hyperparathyroidism acute Type 2 diabetes mellitus wit h diabetic chronic kidney disease acute Acute on chronic diastolic C HF (congestive heart failure) acute [id number] acute Tremor acute [id number] acute [facility] Work Phone: Evaluation note* Diagnosis Onset Date [...] acute Thrush of mouth and esophagus acute [id number] acute CKD (chronic kidney disease) stage 3, GFR 30-59 ml/min acute Hyperlipidemia acute [id number] acute Secondary hyperparathyroidism acute Type 2 diabetes mellitus wit h diabetic chronic kidney disease acute Acute on chronic diastolic C HF (congestive heart failure) acute [id number] acute Tremor acute [id number] acute Mass of right axilla acute [facility] Work Phone: History general Narrative - [...] History COLONOSCOPY 04/10/2019 Hospitalization History See above Posterous Other [facility] general Narrative - Reported* Type Description Date [...] History COLONOSCOPY 04/10/2019 Hospitalization History See above Posterous Other [facility] [employer] [facility] general Narrative - ReportedPosterous Other [employer] [facility] general Narrative - ReportedPosterous Other history general Narrative - Reported* Type [...] GERD 2022 Hospitalization History DIABETES ISSUES 2022 Posterous Other Hospital Discharge instructions No data available for this section General Surgery [facility] Discharge instructionsAmbulatory Orders* Referral to Neurology Time Frame: 06/16/24, Location: None [facility] Work Phone: Hospital Discharge instructionsAmbulatory Orders* Referral to ENT Time Frame: 06/25/24, Location: None Selected [facility] Work Phone: Progress note No data available for this section General Surgery [place] Summary Purpose Family History Relationship Condition Age [...] se, stage 4 (severe) (N18.4) Referral Organization Count includes the [facility] helene Referring Provider First Name Shantel Referring Provider Last Name Tenisha Referring Provider Specialty [facility] Referred Organization [facility] Nephrology Referred Provider Cherie Rapp [place] Address [address] [place],[address] Referred Provider Specialty Nephrology Referral Priority Routine General Notes Mariela Kingston 11:35:41 AM >received today, sent P2P Reason *FU 09/13 lumbar p ain Diagnosis 1 Lumbar degenerative disc disease (M51.36) Referral Organization Count includes the [facility] helene Referring Provider First Name Shantel Referring Provider Last Name Tenisha Referring Provider Specialty [facility] Referred Organization [facility] Referred Provider Terell Soliz Referred Address [address] [place], [place],[address] Referred Provider Specialty Pain Medicin e Referral Priority Routine General Notes Mariela Kingston 03:09:25 PM >received today, waiting for notes to be locked Mariela Kingston 09/06/2023 10:08:29 AM >notes locked, referral faxed Clinical Notes F: [id number] Reason Poorly controlled di abetes Diagnosis 1 Type 2 diabetes maranda itus with hyperglycemia, unspecified whether half-way insulin use (E11.65) Referral Organization [facility] Yashi C helene Referring Provider First Name Shantel Referring Provider Last Name Tenisha Referring Provider Specialty [employer] Referred Organization Unknown Facility Referred Provider Joshua Mcconnell Referred Provider Specialty Internal Med icine Referral Priority Routine Reason tremor and memory lo ss - family history of dementia Diagnosis 1 Tremor of both hands (R25.1) Referral Organization [facility] Yashi helene Referring Provider First Name Shantel Referring Provider Last Name Tenisha Referring Provider Specialty [facility] [employer] Referred Organization Unknown Facility Referred Provider Emery [...] disc disease Thrush of mouth and esophagus [id number] Secondary hyperparathyroidism Chief Complaint medication review Amb [...] disc disease Thrush of mouth and esophagus [id number] CKD (chronic kidney disease) stage 3, GFR 30-59 ml/min Hyperlipidemia [id number] Secondary hyperparathyroidism Type 2 diabetes mellitus with [...] disc disease Thrush of mouth and esophagus [id number] CKD (chronic kidney disease) stage 3, GFR 30-59 ml/min Hyperlipidemia [id number] 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 Acute on chronic diastolic CHF (congestive heart failure) [id number] Tremor [id number] Chief Complaint difficulty swallowin g Amb Documentation [...] disc disease Thrush of mouth and esophagus [id number] CKD (chronic kidney disease) stage 3, GFR 30-59 ml/min Hyperlipidemia [id number] 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 Acute on chronic diastolic CHF (congestive heart failure) [id number] Tremor [id number] Mass of right axilla Additional Source Comments INFORMATION SOURCE (unrecogn ized section and content) DATE CREATED AUTHOR 05/10/2018 [facility] DATE CREATED AUTHOR AUTHOR'S ORGANIZ ATION 03/10/2023 [facility] DATE CREATED AUTHOR AUTHOR'S ORGANIZ ATION 02/20/2024 [facility] DATE CREATED AUTHOR AUTHOR'S ORGANIZ ATION 05/28/2024 [facility] DATE CREATED AUTHOR AUTHOR'S ORGANIZ ATION 07/03/2024 [facility] REASON FOR VISIT (unrecogniz ed section and content) Bilateral Knee Painmedicatio nprescription refillprescription refillprescription refillsTCMTBHmessagerefillrefillc diff2 MONTH FOLLOW UPrefillcritical labBlood Work/RashmessagemedicationTBHRefillsrefillscriticalsleep issueslabsrefillRENAL CKD 4head cold for 2 weeksrefillmessage Care Team (unrecognized sect ion and content) Team Status: Active Member Role Status Dates Shantel Steven MD Primary Care Provider Active Team Status: Inactive Member Role Status Dates Shanetl Steven MD Primary Care Provide r, Attending [...] 13, 2024 End: March 13, 2024 Eloina Hussien MD Attending Provider , Referring Provider Active [...] BE BASED ON THE PRIMARY CLINICAL RECORDS. [employer] [facility]. provides no warranty or guarantee of the accuracy or completeness of information in this document.
[2024-07-15] MEDS: 0.9 % SODIUM CHLORIDE 1,000 ML 100 ML IV (02:49)
[2024-07-15 04:00] VITALS: PULSE 65
[2024-07-15 05:29] VITALS: PULSE 67
[2024-07-15 05:46] LABS: Hematocrit 34.9 % (36.0-48.0); Hemoglobin 11.6 g/dL (12.0-16.0); Mean Corpuscular HGB Conc 33.2 g/dL (29.9-35.2); Mean Corpuscular Hemoglobin 29.9 pg (26.7-34.0); Mean Corpuscular Volume 89.9 fL (81.0-99.0); Platelet Count 177 10^3/uL (150-450); Red Blood Count 3.88 10^6/uL (4.20-5.40); Red Cell Distribution Width 13.3 % (11.0-15.0); White Blood Count 8.5 10^3/uL (4.0-11.0)
[2024-07-15 07:20] LABS: Glucometer 153 mg/dL (74-106)
[2024-07-15 07:26] VITALS: BP 151/82; PULSE 63; TEMP 36.5; O2SAT 93
--- NOTE | 2024-07-15 07:46 | CM.NOTE ---
Rounds made with Dr. Morales, possible discharge this afternoon if BS come back down. Pt denies any complaints this AM. PT and OT will evaluate pt for any discharge needs. Pt verbalizes her BS machine at home is not accurate, 100 off from the hospital machine. Pt's is calling today to get a new meter.
[2024-07-15 07:50] LABS: Alanine Aminotransferase 18 U/L (14-59); Albumin Globulin Ratio 0.6; Albumin Level 2.6 g/dL (3.4-5.0); Alkaline Phosphatase 87 U/L (46-116); Aspartate Amino Transferase 14 U/L (15-37); BUN Creatinine Ratio 38.4; Bilirubin Total 0.6 mg/dL (0.2-1.0); Calcium 8.6 mg/dL (8.5-10.1); Chloride 101 mmol/L (98-107); Estimated GFR (African America 57 (>=60); Estimated GFR (Non-African Ame 47 (>=60); Globulin 4.2 g/dL; Glucose 153 mg/dL (74-106); Potassium 3.6 mmol/L (3.5-5.1); Sodium 141 mmol/L (136-145); Total Protein 6.8 g/dL (6.4-8.2); Troponin I High Sensitivity 21.3 pg/mL (4.0-51.3)
[2024-07-15 07:59] VITALS: PULSE 61
[2024-07-15 08:01] LABS: Anion Gap 12.2; Carbon Dioxide 31.4 mmol/L (21.0-32.0)
--- NOTE | 2024-07-15 08:15 | P.HP_ITS ---
HPI H&P: HPI History of Present Illness Chief complaint: HEART RHYTHM PALPITATIONS HYPERGLYUMIA CARMELO Narrative: Patient had episode of what she felt was palpitations. She has a history of atrial fibrillation but has been in normal sinus rhythm. Presentation to the emergency room found patient to have acute renal failure likely secondary to severe hyperglycemia. She denies any changes in her doses of insulin lately. When I saw patient up on the medical surgical floor, she was resting comfortably in bed without any complaints. Opioid HPI Opioid Management Most Recent Pain and Opioid Data: Last Pain Scale 2 07/01/24 09:18 Last Pain Intensity 3 06/09/24 13:07 Last Pain Assessment 07/15/24 07:34 Last ORT Total Score 0 07/15/24 02:31 Last ORT Risk Category Low Risk 07/15/24 02:31 Review of Systems ROS Status of ROS 10 or more systems reviewed and unremark able except as noted in history and below [facility] Medical History (Updated 07/15/24 @ 01:37 by Rene Alvarez MD) Acute on chronic clinical systolic heart failure ?I50.23 - Acute on chronic systolic (congestive) heart failure (ICD-10) Acute renal failure ?N17.9 - Acute kidney failure, unspecified (ICD-10) Hyperkalemia ?E87.5 - Hyperkalemia (ICD-10) Acute dehydration ?E86.0 - Dehydration (ICD-10) CKD stage 3a, GFR 45-59 ml/min ?N18.31 - Chronic kidney disease, stage 3a (ICD-10) Diabetes mellitus with hyperglycemia, with long-term current use of insulin ?E11.65 - Type 2 diabetes mellitus with hyperglycemia (ICD-10) ?Z79.4 - termite control service representative (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9 - Obesity, unspecified (ICD-10) Surgical History H/O bilateral mastectomy ?Z90.13 - Acquired absence of bilateral breasts and nipples (ICD-10) Family History Other Family history of CHF (congestive heart failure) Family history of cancer Family history of diabetes mellitus Family history of hypertension H/O mastectomy Social History Within the past year, how often did you have a drink containing alcohol: never Within the past year, how often did you have six or more drinks on one occasion: never Score interpretation: A score less than 3 is consistent with normal alcohol consumption. 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 Highest level of school completed/degree received: some college, no degree Do you want help with school or training: No Are you now , , , , never or living with a partner: In a typical week, how many times do you talk on the telephone with family, friends, or neighbors: 3 or more times per week How often do you get together with friends or relatives: 3 or more times per week How often do you attend lutheran or restorationism services: never Do you belong to any clubs or organizations such as lutheran groups unions, fraternal or athletic groups, or school groups: no Total score: 2 Score interpretation: A score of greater than or equal to 2 indicates the lowest level of social isolation. Little interest or pleasure in doing things: not at all Feeling down, depressed, or hopeless: not at all Feel stressed/tense/nervous/anxious/difficulty sleeping: not at all Due to disability, difficulty making decisions: No Do you think of yourself as: straight/heterosexual Gender Identity: female Meds Home Medications and Allergies Home Medications ?Medication ?Instructions ?Recorded ?Confirmed ?Type insulin glargine 100 unit/mL (3 20 unit subcut BEDTIME 04/25/23 07/14/24 History mL) subcutaneous pen (Lantus Solostar U-100 Insulin) metoprolol tartrate 100 mg tablet 150 mg PO BID 04/25/23 07/14/24 History alprazolam 0.25 mg tablet 0.25 mg PO TID PRN anxiety 04/30/24 07/14/24 History levothyroxine 125 mcg tablet 125 mcg PO .acb 04/30/24 07/14/24 History oxycodone-acetaminophen 5 mg-325 1 tab PO DAILY PRN pain 04/30/24 07/15/24 History mg tablet insulin NPH isoph U-100 human 100 1 unit subcut QID 06/09/24 07/14/24 History unit/mL (3 mL) subcutaneous pen (Novolin N FlexPen) furosemide 40 mg tablet (Lasix) 40 mg PO DAILY #30 tabs 06/10/24 07/14/24 Rx atorvastatin 20 mg tablet 20 mg PO QPM 06/18/24 07/15/24 History biotin 10,000 mcg disintegrating 10,000 mcg PO DAILY 06/18/24 07/14/24 History tablet cholecalciferol (vitamin D3) 125 125 mcg PO DAILY 06/18/24 07/14/24 History mcg (5,000 unit) tablet (Vitamin D3) lisinopril 10 mg tablet 10 mg PO DAILY 06/18/24 07/14/24 History rivaroxaban 20 mg tablet (Xarelto) 20 mg PO DAILY 06/18/24 07/14/24 History vit C 226 mg-vit E 90 mg-copper 1 cap PO BID 06/18/24 07/14/24 History 0.8 mg-zinc oxide-lutein 5 mg capsule (PreserVision Lutein) bumetanide 1 mg tablet 1 mg PO Q12H 07/14/24 07/14/24 History diltiazem HCl 120 mg 120 mg PO .QD 07/14/24 07/15/24 History capsule,extended release 24 hr nystatin-triamcinolone 100,000 1 applic topical BID 07/15/24 07/15/24 History unit/g-0.1 % topical cream Allergies Allergy/AdvReac Type Severity Reaction Status Date / Time Iodinated Contrast Media Allergy Intermediate Hives Verified 07/14/24 21:23 shellfish derived Allergy Intermediate Hives Verified 07/14/24 21:23 Sulfa (Sulfonamide Allergy Rash Verified 07/14/24 21:23 Antibiotics) Exam Constitutional Vital Signs, click to edit/add: Last Vital Signs Temp 97.7 F 07/15/24 07:26 Pulse 61 07/15/24 07:59 Resp 16 07/15/24 07:36 BP 151/82 H 07/15/24 07:26 Pulse Ox 93 L 07/15/24 07:26 O2 Del Method Room Air 07/15/24 07:26 Documenting provider has reviewed patient's vital signs: yes Common normals: no apparent distress HENMT Common normals: normocephalic Chest Common normals: inspection of chest normal and palpation of chest normal Respiratory Common normals: normal respiratory effort, no retractions, no use of accessory muscles and clear to auscultation bilaterally Cardio Common normals: regular rate, regular rhythm and no murmurs GI Common normals: Normal to inspection, nondistended, normoactive bowel sounds present, soft to palpation and non-tender Extremity Common normals: normal to inspection, full ROM and no clubbing, cyanosis or edema Results Labs Labs: Short CBC 07/14/24 07/15/24 Range/Units 22:40 05:38 WBC 8.2 8.5 (4.0-11.0) 10^3/uL Hgb 12.8 11.6 L (12.0-16.0) g/dL Hct 38.5 34.9 L (36.0-48.0) % Plt Count 182 177 (150-450) 10^3/uL BMP 07/14/24 22:40 Sodium 135 L Potassium 4.0 Chloride 96 L Carbon Dioxide 35.5 H BUN 52.0 H Creatinine 1.65 H Glucose 458 H Calcium 9.0 Assessment and Plan Assessment and Plan (1) Intermittent palpitations: (2) Acute hyperglycemia: (3) Acute kidney injury: (4) Uncontrolled diabetes mellitus: Plan Admission findings: Severe hyperglycemia with sugar over 400, acute renal failure with creatinine elevated at 1.65 which is 187.5 percent above her baseline creatinine of 0.88. Acute renal failure-creatinine as outlined above-improved this morning back down to 1.1, also still above her baseline but overall improved Severe uncontrolled diabetes mellitus-much improved this morning. From 400 yesterday down to 1 low 100s today. If she tolerates breakfast and her sugars remain improved, likely discharge to home later today Elevated BNP-she does not have any peripheral edema and her lung exam is clear, this is likely her normal for her. She is slightly above her baseline BNP of 2500. Could continue workup as an outpatient Iron deficiency anemia-monitor daily, consider workup as an outpatient Hyponatremia-improved to normal, likely related to his severe hyperglycemia Atrial fibrillation-rate controlled, currently normal sinus rhythm Admission status: Patient with acute renal failure and acute severe hyperglycemia-improved with hydration overnight, her creatinine is almost back to baseline her sugar is back to baseline, BNP is at her baseline. Medically necessary treatment only span 1 midnight. Observation status.
--- NOTE | 2024-07-15 08:16 | P.DS_ITS ---
DS: Providers Provider Date of admission: 07/15/24 02:29 Primary care physician: Theodora Cuevas MD Consults: 07/15/24 06:39 Consult to Pharmacy Routine Consulting Provider: Reason for consultation: Please [place] me when Med Rec is Updated Has provider been notified: No Occupational Therapy Eval and Treat Routine Reason for consultation: Only if needed for Rehab Has provider been notified: No Physical Therapy Eval and Treat Routine Reason for consultation: Eval and Treat Has provider been notified: No DS: Diagnosis Discharge Diagnosis (1) Intermittent palpitations: (2) Acute hyperglycemia: (3) Acute kidney injury: (4) Uncontrolled diabetes mellitus: (5) Lumbar spondylosis: Plan The patient findings: Severe hyperglycemia with sugar over 400, acute renal failure with creatinine elevated at 1.65 which is 187.5 percent above her baseline creatinine of 0.88. Acute renal failure-creatinine as outlined above-improved this morning back down to 1.1, also still above her baseline but overall improved Severe uncontrolled diabetes mellitus-much improved this morning. From 400 yesterday down to low 100s today. Continue to monitor as an outpatient Elevated BNP-she does not have any peripheral edema and her lung exam is clear, this is likely her normal for her. She is slightly above her baseline BNP of 2500. Could continue workup as an outpatient Iron deficiency anemia-monitor daily, consider workup as an outpatient Hyponatremia-improved to normal, likely related to his severe hyperglycemia Atrial fibrillation-rate controlled, currently normal sinus rhythm Admission status: Patient with acute renal failure and acute severe hyperglyce kaela-improved with hydration overnight, her creatinine is almost back to baseline her sugar is back to baseline, BNP is at her baseline. Medically necessary treatment only span 1 midnight. Observation status. DS: Summary Hospital Course Hospital Course: Patient admitted for acute renal failure with creatinine 187.5% above baseline, secondary to severe hyperglycemia with sugars over 400, those are all improved this morning although not quite back to baseline. Her BNP is elevated but I do believe this is her baseline as she has no changes on lung or peripheral edema consistent with heart failure. Patient is eaten a good breakfast she is ambulated in the hallway with physical therapy without any issues. Will discha rge patient to home in improving condition. Medications see list. Follow-up with PCP within the next week. Status at Discharge Functional status at discharge: independent ambulation Overall status at discharge: patient is not back to baseline Time Spent with Patient Time attestation: Total time spent providing and/or coordinating discharge services: Time spent: greater than 30 minutes Exam Constitutional Vital Signs, click to edit/add: Last Vital Signs Temp 97.7 F 07/15/24 07:26 Pulse 61 07/15/24 07:59 Resp 16 07/15/24 07:36 BP 151/82 H 07/15/24 07:26 Pulse Ox 93 L 07/15/24 07:26 O2 Del Method Room Air 07/15/24 07:26 Documenting provider has reviewed patient's vital signs: yes Common normals: no apparent distress HENMT Common normals: normocephalic Chest Common normals: inspection of chest normal and palpation of chest normal Respiratory Common normals: normal respiratory effort, no retractions, no use of accessory muscles and clear to auscultation bilaterally Cardio Common normals: regular rate, regular rhythm and no murmurs GI Common normals: Normal to inspection, nondistended, normoactive bowel sounds present, soft to palpation and non-tender Extremity Common normals: normal to inspection, full ROM and no clubbing, cyanosis or edema DS: Data Data Completed and Pending Labs on day of discharge: Labs from last 24 hours 07/15/24 07/15/24 07/15/24 07:20 05:38 01:14 WBC 8.5 RBC 3.88 L Hgb 11.6 L Hct 34.9 L MCV 89.9 MCH 29.9 MCHC 33.2 RDW 13.3 Plt Count 177 MPV 11.0 Neut % (Auto) Lymph % (Auto) [place] % (Auto) Eos % (Auto) Baso % (Auto) Neut # (Auto) Lymph # (Auto) [place] # (Auto) Eos # (Auto) Baso # (Auto) Abs Immat Gran (auto) Imm/Tot Granulo (auto) Sodium Potassium Chloride Carbon Dioxide Anion Gap BUN Creatinine Est GFR ( Amer) Est GFR (Non-Af Amer) BUN/Creatinine Ratio Glucose Calcium Troponin I High Sens POC Glucose 153 H 383 H 07/14/24 07/14/24 23:30 22:40 WBC 8.2 RBC 4.27 Hgb 12.8 Hct 38.5 MCV 90.2 MCH 30.0 MCHC 33.2 RDW 13.5 Plt Count 182 MPV 11.0 Neut % (Auto) 77.4 H Lymph % (Auto) 13.7 L [place] % (Auto) 6.6 Eos % (Auto) 1.3 Baso % (Auto) 0.9 Neut # (Auto) 6.3 Lymph # (Auto) 1.1 L [place] # (Auto) 0.5 Eos # (Auto) 0.1 Baso # (Auto) 0.1 Abs Immat Gran (auto) 0.01 Imm/Tot Granulo (auto) 0.1 Sodium 135 L Potassium 4.0 Chloride 96 L Carbon Dioxide 35.5 H Anion Gap 7.5 BUN 52.0 H Creatinine 1.65 H Est GFR ( Amer) 36 L Est GFR (Non-Af Amer) 30 L BUN/Creatinine Ratio 31.5 Glucose 458 H Calcium 9.0 Troponin I High Sens 17.9 POC Glucose 417 H Discharge Plan Discharge Disposition: Home, Self-Care Condition: Good Discharge Medications: Continued insulin glargine [Lantus Solostar U-100 Insulin] 100 unit/mL (3 mL) insulin pen 20 unit SUBCUT BEDTIME metoprolol tartrate 100 mg tablet 150 mg PO BID levothyroxine 125 mcg tablet 125 mcg PO .acb alprazolam 0.25 mg tablet 0.25 mg PO TID PRN (Reason: anxiety) Patient Comments: 0.25mg PO TID PRN for anxiety oxycodone-acetaminophen 5-325 mg tablet 1 tab PO DAILY PRN (Reason: pain) bumetanide 1 mg tablet 1 mg PO Q12H diltiazem HCl 120 mg capsule,extended release 24hr 120 mg PO .QD nystatin-triamcinolone 100,000-0.1 unit/g-% cream 1 applic TOPICAL BID Xarelto 20 mg tablet 20 mg PO DAILY Rx Instructions: must administer with evening meal PreserVision Lutein 226-90-0.8-5 mg capsule 1 cap PO BID atorvastatin 20 mg tablet 20 mg PO QPM cholecalciferol (vitamin D3) [Vitamin D3] 125 mcg (5,000 unit) tablet 125 mcg PO DAILY biotin 10,000 mcg tablet,disintegrating 10,000 mcg PO DAILY lisinopril 10 mg tablet 10 mg PO DAILY Novolin N FlexPen 100 unit/mL (3 mL) insulin pen 1 unit SUBCUT QID Patient Comments: (if BLOOD SUGAR is BETWEEN 150-199 INJECT 3 (THREE) UNITS, if BETWEEN 200-249 INJECT FOUR UNITS, if BETWEEN 250-299 INJECT 7 (SEVEN) UNITS, if BETWEEN 300-349 INJECT TEN UNITS, if BETWEEN 350-399 INJECT 12 UNITS, if 400 or great INJECT 14 UNITS) Rx Instructions: SLIDING SCALE Discontinued furosemide [Lasix] 40 mg tablet 40 mg PO DAILY Qty: 30 0RF Print Language: Somali Forms: Portal Instructions
[2024-07-15] MEDS: METOPROLOL TARTRATE 100 MG TABLET 150 MG PO (09:13)
[2024-07-15] MEDS: CHOLECALCIFEROL (VITAMIN D3) 125 MCG/5,000 UNIT TABLET PO (09:13)
[2024-07-15] MEDS: INSULIN ASPART 300 UNIT/3 ML PEN SUBQ (09:13)
[2024-07-15] MEDS: LEVOTHYROXINE SODIUM 125 MCG TABLET PO (09:13)
[2024-07-15] MEDS: LISINOPRIL 10 MG TABLET PO (09:13)
[2024-07-15 09:14] LABS: Bilirubin Urine NEGATIVE (NEGATIVE); Blood Urine TRACE-I (NEGATIVE); Clarity Urine CLEAR (CLEAR); Color Urine LT. YELLOW (YELLOW); Glucose Urine UA NEGATIVE (NEGATIVE); Ketones Urine NEGATIVE (NEGATIVE); Leukocyte Esterase Urine NEGATIVE (NEGATIVE); Nitrite Urine NEGATIVE (NEGATIVE); Protein Urine 100 mg/dL (NEG/TRACE); Urobilinogen Urine 0.2 EU/dL (0.2-1.0); pH Urine 6.5 (5.0-9.0)
--- NOTE | 2024-07-15 09:18 | CM.NOTE ---
Medicare Outpatient Observation Notice discussed with pt, pt verbalizes understanding and signs paper. Original given to pt and copy placed on pt's chart.
[2024-07-15 09:52] VITALS: PULSE 80
--- NOTE | 2024-07-15 10:06 | SWNOTE1 ---
Pt worked with therapy and no needs were identified during assessment. At this time pt has no discharge needs and will be discharged to home today.
[2024-07-15 10:12] LABS: Bacteria Urine NONE SEEN #/HPF (NONE SEEN); RBC Urine 0-2 #/HPF (0-2); WBC Urine NONE SEEN #/HPF (NONE SEEN)
[2024-07-15 10:13] LABS: Mucus Urine NONE SEEN (NONE SEEN); Squamous Epithelial Cell Urine FEW #/LPF (NONE/RARE)
--- NOTE | 2024-07-16 14:46 | CM.DCFOLLOWU ---
Person spoke with:patient How are you feeling?well How is your pain?none Did you understand your discharge instructions?yes Do you have any questions about your discharge instructions? no Were you given any prescriptions at discharge? no Were you able to get your prescriptions filled?N/A Do you understand how to take your medications as ordered? yes Do you have any questions about your follow up appointment and do you plan to keep your follow up appointment? no questions, had follow up today Is there anything else that you would like to discuss? no Questions/Comments/Concerns/Other:n/a
== END 2024-07-15 10:50 | disposition home or self-care (01) ==
LOC: ER 07-15 01:37 → MS 07-15 02:30
PROVIDERS: Registered Nurse; Admitting Provider Family Medicine; Emergency Provider Student in an Organized Health Care Education/Training Program; PCP Family Medicine; Visit Provider Family Medicine
DX: N17.9 Acute kidney failure, unspecified (principal); E11.65 Type 2 diabetes mellitus with hyperglycemia; I48.0 Paroxysmal atrial fibrillation; R79.89 Other specified abnormal findings of blood chemistry; D50.9 Iron deficiency anemia, unspecified; E87.1 Hypo-osmolality and hyponatremia; M47.816 Spondylosis without myelopathy or radiculopathy, lumbar region; Z79.01 Long term (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 anticoagulants; I50.9 Heart failure, unspecified; Z79.899 Other long term (current) drug therapy; Z79.4 Long term (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 insulin
CPT/HCPCS: 36415; 71045; 80048; 80053; 81001; 82948; 83880; 84484; 85025; 85027; 87086; 93005; 96360; 97165; 99285; G0378; J1817

== ENCOUNTER 2024-07-17 10:44 | Outpatient (OUT) | payer MEDICARE, SELFPAY ==
--- NOTE | 2024-07-17 10:48 | US_ITS ---
The [address] [address] Patient Name: JOE CALL MRN: [id number] date: 1945 Sex: F Assigned Patient Location: US Current Patient Location: Accession/Order Number: [id number] Exam Date: 07/17/2024 10:55 Report Date: 07/18/2024 05:06 At the request of: SHANTEL STEVEN Procedure: US extremity nonvascular RT EXAMINATION: US extremity nonvascular RT HISTORY: Mass Of Right Axilla R22.31 COMPARISON: No relevant comparison available. FINDINGS: Ultrasound evaluation of upper right arm in area of palpable lump demonstrates a 2.0 x 1.5 x 0.7 cm thinly marginated isoechoic mass, likely a lipoma. US/US extremity nonvascular RT IMPRESSION: 1. Patient's palpable lump is suspected to represent a lipoma. Ultrasound-guided tissue sampling could be performed if clinically indicated. 2. No appreciable lymph nodes. Electronically authenticated by: SOFIA JOHN Date: 07/18/2024 05:06
== END 2024-07-17 10:45 | disposition home or self-care (01) ==
LOC: US 10:44
PROVIDERS: PCP Family Medicine; Visit Provider Family Medicine
DX: R22.31 Localized swelling, mass and lump, right upper limb (principal)
CPT/HCPCS: 76882

== ENCOUNTER 2024-07-24 12:53 | Observation (INO) | payer MEDICARE, SELFPAY ==
[2024-07-24] VITALS (22 sets, daily range): BP systolic 139–183; BP diastolic 69–100; PULSE 65–86; TEMP 36.4–36.8; O2SAT 90–96; BMI 42.6; BMI 44.6
--- NOTE | 2024-07-24 13:22 | ED_ITS ---
HPI - SOB/Dyspnea General Chief Complaint: Shortness of Breath/Dyspnea Stated Complaint: SOB Time Seen by Provider: 07/24/24 13:18 Source: patient and family Mode of arrival: Wheelchair Limitations: no limitations History of Present Illness HPI Narrative: 79-year-old female presents to the emergency department for shortness of breath. She believes it is due to congestive heart failure. She has had the symptoms for about a week and it has been getting worse and she has had trouble getting up and walking around or even lifting her arms. She does not complain to me of fever or chest pain. Related Data Home Medications ?Medication ?Instructions ?Recorded ?Confirmed insulin glargine 100 unit/mL (3 20 unit subcut BEDTIME 04/25/23 07/14/24 mL) subcutaneous pen (Lantus Solostar U-100 Insulin) metoprolol tartrate 100 mg tablet 150 mg PO BID 04/25/23 07/14/24 alprazolam 0.25 mg tablet 0.25 mg PO TID PRN anxiety 04/30/24 07/14/24 levothyroxine 125 mcg tablet 125 mcg PO .acb 04/30/24 07/14/24 oxycodone-acetaminophen 5 mg-325 1 tab PO DAILY PRN pain 04/30/24 07/15/24 mg tablet insulin NPH isoph U-100 human 100 1 unit subcut QID 06/09/24 07/14/24 unit/mL (3 mL) subcutaneous pen (Novolin N FlexPen) atorvastatin 20 mg tablet 20 mg PO QPM 06/18/24 07/15/24 biotin 10,000 mcg disintegrating 10,000 mcg PO DAILY 06/18/24 07/14/24 tablet cholecalciferol (vitamin D3) 125 125 mcg PO DAILY 06/18/24 07/14/24 mcg (5,000 unit) tablet (Vitamin D3) lisinopril 10 mg tablet 10 mg PO DAILY 06/18/24 07/14/24 rivaroxaban 20 mg tablet (Xarelto) 20 mg PO DAILY 06/18/24 07/14/24 vit C 226 mg-vit E 90 mg-copper 1 cap PO BID 06/18/24 07/14/24 0.8 mg-zinc oxide-lutein 5 mg capsule (PreserVision Lutein) bumetanide 1 mg tablet 1 mg PO Q12H 07/14/24 07/14/24 diltiazem HCl 120 mg 120 mg PO .QD 07/14/24 07/15/24 capsule,extended release 24 hr nystatin-triamcinolone 100,000 1 applic topical BID 07/15/24 07/15/24 unit/g-0.1 % topical cream Allergies Allergy/AdvReac Type Severity Reaction Status Date / Time Iodinated Contrast Media Allergy Intermediate Hives Verified 07/24/24 13:08 shellfish derived Allergy Intermediate Hives Verified 07/24/24 13:08 Sulfa (Sulfonamide Allergy Rash Verified 07/24/24 13:08 Antibiotics) Review of Systems ROS Narrative A ten point review of systems is negative except as noted above. [facility] Medical History (Updated 07/24/24 @ 14:49 by Elan Galan MD) Intermittent palpitations ?R00.2 - Palpitations (ICD-10) Acute hyperglycemia ?R73.9 - Hyperglycemia, unspecified (ICD-10) Acute kidney injury ?N17.9 - Acute kidney failure, unspecified (ICD-10) Uncontrolled diabetes mellitus Acute on chronic clinical systolic heart failure ?I50.23 - Acute on chronic systolic (congestive) heart failure (ICD-10) Acute renal failure ?N17.9 - Acute kidney failure, unspecified (ICD-10) Hyperkalemia ?E87.5 - Hyperkalemia (ICD-10) Acute dehydration ?E86.0 - Dehydration (ICD-10) CKD stage 3a, GFR 45-59 ml/min ?N18.31 - Chronic kidney disease, stage 3a (ICD-10) Diabetes mellitus with hyperglycemia, with long-term current use of insulin ?E11.65 - Type 2 diabetes mellitus with hyperglycemia (ICD-10) ?Z79.4 - [facility] (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9 - Obesity, unspecified (ICD-10) Surgical History (Updated 07/18/24 @ 11:16 by Callie Gray) History of cholecystectomy ?Z90.49 - Acquired absence of other specified parts of digestive tract (ICD- 10) History of appendectomy ?Z90.49 - Acquired absence of other specified parts of digestive tract (ICD- 10) History of hysterectomy ?Z90.710 - Acquired absence of both cervix and uterus (ICD-10) H/O lumbosacral spine surgery ?Z98.890 - Other specified postprocedural states (ICD-10) H/O bilateral mastectomy ?Z90.13 - Acquired absence of bilateral breasts and nipples (ICD-10) Family History Other Family history of CHF (congestive heart failure) Family history of cancer Family history of diabetes mellitus Family history of hypertension H/O mastectomy Social History Within the past year, how often did you have a drink containing alcohol: never Within the past year, how often did you have six or more drinks on one occasion: never Score interpretation: A score less than 3 is consistent with normal alcohol consumption. 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 Highest level of school completed/degree received: some college, no degree Do you want help with school or training: No Are you now , , , , never or living with a partner: In a typical week, how many times do you talk on the telephone with family, friends, or neighbors: 3 or more times per week How often do you get together with friends or relatives: 3 or more times per week How often do you attend hindu or buddhist services: never Do you belong to any clubs or organizations such as hindu groups unions, fraternal or athletic groups, or school groups: no Total score: 2 Score interpretation: A score of greater than or equal to 2 indicates the lowest level of social isolation. Little interest or pleasure in doing things: not at all Feeling down, depressed, or hopeless: not at all Feel stressed/tense/nervous/anxious/difficulty sleeping: not at all Due to disability, difficulty making decisions: No Do you think of yourself as: straight/heterosexual Gender Identity: female Exam Narrative Exam Narrative: Nurses note and vital signs reviewed and patient is not hypoxic. General: The patient appears in no apparent distress. Skin: Warm, dry, no pallor noted. There is no rash noted. Head: Normocephalic, atraumatic Eye: Normal conjunctiva, no drainage Ears, Nose, Mouth, and Throat: oral mucosa is moist. Nares patent. Cardiovascular: Regular Rate and Rhythm, not tachycardic Respiratory: Patient is in no distress, no accessory muscle use, lungs are clear to auscultation, no wheezing, rales or rhonchi Back: non-tender GI: Soft and nontender Musculoskeletal: Extremities are obese Neurological: A&O, normal speech Psychiatric: Cooperative Constitutional Vital Signs, click to edit/add: Last Vital Signs Temp 97.9 F 07/24/24 13:08 Pulse 66 07/24/24 14:40 Resp 17 07/24/24 14:40 BP 162/69 H 07/24/24 13:32 Pulse Ox 93 L 07/24/24 14:40 O2 Del Method Room Air 07/24/24 13:08 Course Vital Signs Vital signs: Vital Signs Temperature 97.9 F 07/24/24 13:08 Pulse Rate 67 07/24/24 13:08 Respiratory Rate 24 H 07/24/24 13:08 Blood Pressure 150/100 H 07/24/24 13:08 Pulse Oximetry 90 L 07/24/24 13:08 Oxygen Delivery Method Room Air 07/24/24 13:08 Temperature 97.9 F 07/24/24 13:08 Pulse Rate 66 07/24/24 14:40 Respiratory Rate 17 07/24/24 14:40 Blood Pressure 162/69 H 07/24/24 13:32 Pulse Oximetry 93 L 07/24/24 14:40 Oxygen Delivery Method Room Air 07/24/24 13:08 MDM - SOB/Dyspnea MDM Narrative Medical decision making narrative: CHF and pulmonary edema is identified and she was given IV Lasix here. Findings are discussed with the patient and she is being admitted. Differential Diagnosis Differential diagnosis: Likely congestive heart failure, community acquired pneumonia and other (Pulmonary edema, CHF) Lab Data Attestation: I reviewed the patient's lab results. Labs: Lab Results 07/24/24 Range/Units 13:50 WBC 9.7 (4.0-11.0) 10^3/uL RBC 3.75 L (4.20-5.40) 10^6/uL Hgb 11.2 L (12.0-16.0) g/dL Hct 34.5 L (36.0-48.0) % MCV 92.0 (81.0-99.0) fL MCH 29.9 (26.7-34.0) pg MCHC 32.5 (29.9-35.2) g/dL RDW 13.7 (11.0-15.0) % Plt Count 236 (150-450) 10^3/uL MPV 10.4 (9.5-13.5) fL Neut % (Auto) 82.8 H (43.0-75.0) % Lymph % (Auto) 9.2 L (20.5-60.0) % [place] % (Auto) 5.3 (1.7-12.0) % Eos % (Auto) 1.7 (0.9-7.0) % Baso % (Auto) 0.7 (0.2-2.0) % Neut # (Auto) 8.0 H (1.4-6.5) 10^3/uL Lymph # (Auto) 0.9 L (1.2-3.8) 10^3/uL [place] # (Auto) 0.5 (0.3-0.8) 10^3/uL Eos # (Auto) 0.2 (0.0-0.7) 10^3/uL Baso # (Auto) 0.1 (0.0-0.1) 10^3/uL Abs Immat Gran (auto) 0.03 (0.00-0.03) 10^3/uL Imm/Tot Granulo (auto) 0.3 (0.0-0.5) % Sodium 141 (136-145) mmol/L Potassium 4.1 (3.5-5.1) mmol/L Chloride 104 (98-107) mmol/L Carbon Dioxide 26.1 (21.0-32.0) mmol/L Anion Gap 15.0 BUN 28.0 H (7.0-18.0) mg/dL Creatinine 1.11 H (0.55-1.02) mg/dL Est GFR ( Amer) 58 L (>=60) Est GFR (Non-Af Amer) 48 L (>=60) BUN/Creatinine Ratio 25.2 Glucose 247 H (74-106) mg/dL Calcium 8.9 (8.5-10.1) mg/dL Troponin I High Sens 20.5 (4.0-51.3) pg/mL NT-Pro-B Natriuret Pep 6277.0 H* (<=1800.0) pg/mL Imaging Data Chest x-ray: Radiologist's impression: ITS Impressions Chest X-Ray 07/24/24 13:22 IMPRESSION: Pulmonary edema, consider congestive heart failure Left basilar infiltrate and pleural effusion Electronically authenticated by: NICOLAS BRISCOE Date: 07/24/2024 14:04 ECG Data Attestation: I personally reviewed and interpreted this ECG as follows: (EKG on my interpretation shows sinus rhythm with rate of 67 and no acute change) Critical Care Time Critical Care Time Critical Care Time: Yes Total Critical Care Time: 35 Attestation: Due to the high probability of sudden and clinically significant deterioration in the patient's condition he/she required the highest level of my preparedness to intervene urgently I provided critical care time including documentation time, medication orders and management, reevaluation, vital sign assessment, ordering and reviewing of lab tests, ordering and reviewing of x-ray studies, and admission orders. Aggregate critical care time is 35 minutes including only time during which I was engaged in work directly related to his/her care and did not include time spent treating other patients simultaneously. Discharge Plan Discharge Chief Complaint: Shortness of Breath/Dyspnea Clinical Impression: Pulmonary edema Patient Disposition: Admitted As Inpatient Time of Disposition Decision: 14:49 Condition: Fair Prescriptions / Home Meds: No Action insulin glargine [Lantus Solostar U-100 Insulin] 100 unit/mL (3 mL) insulin pen 20 unit SUBCUT BEDTIME metoprolol tartrate 100 mg tablet 150 mg PO BID levothyroxine 125 mcg tablet 125 mcg PO .acb alprazolam 0.25 mg tablet 0.25 mg PO TID PRN (Reason: anxiety) Patient Comments: 0.25mg PO TID PRN for anxiety oxycodone-acetaminophen 5-325 mg tablet 1 tab PO DAILY PRN (Reason: pain) bumetanide 1 mg tablet 1 mg PO Q12H diltiazem HCl 120 mg capsule,extended release 24hr 120 mg PO .QD nystatin-triamcinolone 100,000-0.1 unit/g-% cream 1 applic TOPICAL BID Xarelto 20 mg tablet 20 mg PO DAILY Rx Instructions: must administer with evening meal PreserVision Lutein 226-90-0.8-5 mg capsule 1 cap PO BID atorvastatin 20 mg tablet 20 mg PO QPM cholecalciferol (vitamin D3) [Vitamin D3] 125 mcg (5,000 unit) tablet 125 mcg PO DAILY biotin 10,000 mcg tablet,disintegrating 10,000 mcg PO DAILY lisinopril 10 mg tablet 10 mg PO DAILY Novolin N FlexPen 100 unit/mL (3 mL) insulin pen 1 unit SUBCUT QID Patient Comments: (if BLOOD SUGAR is BETWEEN 150-199 INJECT 3 (THREE) UNITS, if BETWEEN 200-249 INJECT FOUR UNITS, if BETWEEN 250-299 INJECT 7 (SEVEN) UNITS, if BETWEEN 300-349 INJECT TEN UNITS, if BETWEEN 350-399 INJECT 12 UNITS, if 400 or great INJECT 14 UNITS) Rx Instructions: SLIDING SCALE Print Language: Omani Referrals: Theodora Cuevas MD [Primary Care Provider] - 1 week
--- NOTE | 2024-07-24 13:22 | XR_ITS ---
The [address] [address] Patient Name: JOE CALL MRN: [id number] date: 1945 Sex: F Assigned Patient Location: ER Current Patient Location: ER Accession/Order Number: [id number] Exam Date: 07/24/2024 13:29 Report Date: 07/24/2024 14:04 At the request of: JANIE DURHAM Procedure: XR chest 1V EXAMINATION: XR chest 1V HISTORY: SOB COMPARISON: 07/14/2024 TECHNIQUE: AP portable erect FINDINGS: LUNGS: Moderate diffuse parenchymal infiltrates with a central and bibasilar predominance most significant in the left lower lobe obscuring the hemidiaphragm and partially obscuring the heart border. Mild peripheral intralobular septal thickening VASCULATURE: No increased pulmonary vasculature. PLEURA: No pneumothorax. Small left pleural effusion. CARDIAC: Cardiomegaly MEDIASTINUM: No visible mass or adenopathy. Atherosclerosis BONES: No fracture or visible bone lesion. OTHER: Negative. XR/XR chest 1V IMPRESSION: Pulmonary edema, consider congestive heart failure Left basilar infiltrate and pleural effusion Electronically authenticated by: NICOLAS BRISCOE Date: 07/24/2024 14:04
--- NOTE | 2024-07-24 13:22 | ECG_ITS ---
The [facility] Test Date: 2024-07-24 Pat Name: JOE CALL Department: Room: - Gender: Female [employer] Att[employer]: : 1945 Requested By: [id number] Order Number: [id number] Reading MD: SHEBA POWELL Measurements Intervals [place] Rate: 67 P: 64 NV: 144 QRS: 28 QRSD: 100 T: 53 QT: 420 QTc: 436 Interpretive Statements 1100 Sinus rhythm 3114 Cannot rule out anterior myocardial infarction, age undetermined 9150 abnormal ECG Compared to ECG 07/14/2024 21:27:37 Myocardial infarct finding now present Electronically Signed On 07-24-2024 22:27:08 EDT by SHEBA POWELL
[2024-07-24 13:59] LABS: Basophils Absolute Auto 0.1 10^3/uL (0.0-0.1); Basophils Percent Auto 0.7 % (0.2-2.0); Eosinophils Absolute Auto 0.2 10^3/uL (0.0-0.7); Eosinophils Percent Auto 1.7 % (0.9-7.0); Hematocrit 34.5 % (36.0-48.0); Hemoglobin 11.2 g/dL (12.0-16.0); Immature Granulocytes Abs Auto 0.03 10^3/uL (0.00-0.03); Immature Granulocytes Pct Auto 0.3 % (0.0-0.5); Lymphocytes Absolute Auto 0.9 10^3/uL (1.2-3.8); Lymphocytes Percent Auto 9.2 % (20.5-60.0); Mean Corpuscular HGB Conc 32.5 g/dL (29.9-35.2); Mean Corpuscular Hemoglobin 29.9 pg (26.7-34.0); Mean Platelet Volume 10.4 fL (9.5-13.5); Monocytes Absolute Auto 0.5 10^3/uL (0.3-0.8); Monocytes Percent Auto 5.3 % (1.7-12.0); Neutrophils Percent Auto 82.8 % (43.0-75.0); Platelet Count 236 10^3/uL (150-450); Red Blood Count 3.75 10^6/uL (4.20-5.40); Red Cell Distribution Width 13.7 % (11.0-15.0); White Blood Count 9.7 10^3/uL (4.0-11.0)
[2024-07-24 14:25] LABS: BUN Creatinine Ratio 25.2; Calcium 8.9 mg/dL (8.5-10.1); Carbon Dioxide 26.1 mmol/L (21.0-32.0); Chloride 104 mmol/L (98-107); Estimated GFR (African America 58 (>=60); Estimated GFR (Non-African Ame 48 (>=60); Glucose 247 mg/dL (74-106); Potassium 4.1 mmol/L (3.5-5.1); Sodium 141 mmol/L (136-145); Troponin I High Sensitivity 20.5 pg/mL (4.0-51.3)
[2024-07-24] MEDS: FUROSEMIDE 40 MG/4 ML VIAL IVP (15:14)
[2024-07-24] MEDS: ENOXAPARIN SODIUM 40 MG/0.4 ML SYRINGE SUBQ (16:48)
[2024-07-24] MEDS: INSULIN ASPART 300 UNIT/3 ML PEN SUBQ (16:49)
--- OUTSIDE RECORDS SUMMARY | 2024-07-24 16:56 | XMS_ITS | CCD ---
Author Organization [facility] Care Team Providers Care Senior Manager Name Role Phone UNKNOWN, PROVIDER Unavailable Unavailable [...] Referring Provider DO Jesus Barbour Emergency Provider MD Shantel Steven Primary Care Provider DO Jesus Barbour Emergency Provider [phone] MD Shantel Steven Primary Care Provider ENZO BARNES Attending Unavailable ENZO BARNES Attending Unavailable RICA KAPLAN Attending Unavailable MICHELA DELACRUZ Attending Unavailable RICA KAPLAN Attending Unavailable MD Shantel Steven Attending Provider Shantel Steven Attending Unavailable Shantel Steven Admitting Unavailable Jovita, Selvon F Referring Unavailable Jovita, Selvomert F Attending Unavailable Jovita, Selvon F Admitting Unavailable Shantel Steven Consulting Unavailable Shantel Steven Primary Care Unavailable Jesus Barbour Attending Unavailable Jesus Barbour Admitting Unavailable Shantel Steven Primary Care Unavailable TEODORA GARCIA Attending Unavailable SHANTEL STEVEN Referring Unavailable CHRISTEL CHACON Attending Unavailable SHANTEL STEVEN Referring Unavailable Allergies Allergy Classification Reported Allergen(s) Allergy Type Date of Onset Reaction(s) Facility (1 source) Iodine (And Iodine Containting Drugs) Drug allergy (disorder) 03-04-20 12 [facility] Repository (20 sources) Shellfish; Translations: [Shellfish] Food allergy (disorder) 03-04-20 12 rash, Eruption of skin (disorder) [facility] Rep[facility] (17 sources) Sulfonamides (Antibiotic); Translations: [SULFA (SULFONAMIDE ANTIBIOTICS)] Drug allergy (disorder) 03-04-20 12 Rash [facility] Rep[facility] (20 sources) Sulfacetamide Drug Allergy 02-15-20 24 diarrhea [facility] (13 sources) Contrast media; Translations: [contrast media (iodine-based)] Drug allergy Unknown (qualifier value) [facility] [place] (2 sources) Sulfonamides (Antibiotic); Translations: [sulfa drugs] Drug allergy Diarrhea (finding) [facility] (2 sources) Glucosamine Drug Allergy [facility] Rep[facility] (2 sources) Iodine (And Iodine Containting Drugs) Drug allergy (disorder) 08-09-20 17 [facility] Repository (11 sources) Contrast media Propensity to adverse reactions 11-18-[address] [facility] [employer] [facility] [employer] Other (12 sources) Iodine; Translations: [IODINE] Drug Allergy 10-30-20 14 Unknown [facility] Repository (11 sources) Substance with sulfonamide structure and antibacterial mechanism of action (substance) Drug allergy Unknown [employer] Other (11 sources) Dyes Propensity to adverse reactions Comment:CT Dyes,Dyes,IVP Dyes [employer] [facility] [employer] Other (15 sources) Shellfish; Translations: [SHELLFISH DERIVED] Allergy to substance 10-30-20 14 [facility] (15 sources) Iodinated [employer]; Translations: [IODINATED CONTRAST MEDIA] Allergy to substance 02-15-20 24 [facility] (1 source) Chocolate; Translations: [CHOCOLATE FLAVOR] Propensity to adverse reactions to drug (disorder) 01-17-20 23 [facility] Repository (1 source) Sulfacetamide Drug Allergy 07-16-20 24 [facility] Repository (1 source) Sulfonamides (Antibiotic) Drug allergy (disorder) 07-16-20 24 [facility] Repository Medications Current Medications Medication Drug Class(es) Dates Sig (Normalized) Sig (Original) 8 Hour Arthritis Pain Reliever (14 sources) acetaminophen 325 mg / oxyCODONE hydrochloride 5 mg oral tablet (20 sources) Opioid Agonist Start: 07-07-2024 Start: 07-07-2024 take 1 tablet by joesph th once daily Oxycodone-Acetaminophen Active 1 TAB PO Daily July 07, 2024 Start: 06-07-2024 End: 06-07-2024 Start: 06-07-2024 End: 06-07-2024 Start: 06-07-2024 End: 06-07-2024 take 1 tablet [...] June 07, 2024 7:29am Start: 01-04-2024 End: 06-07-2024 Start: 01-04-2024 End: 05-07-2024 take 1 tablet [...] 07/27/22 Status: Ordered Start: 06-12-2021 End: 06-19-2021 Start: 06-12-2021 End: 06-19-2021 take 1 tablet [...] (20 sources) HMG-CoA Reductase Inhibitor Start: 03-07-2021 B-12 (1 source) Start: 03-07-2021 B-12 Refills(s ) 0 Start Date: 03/07/21 Status: Ordered bifidobacterium infantis 4 mg oral capsule (7 sources) Start: 06-05-2024 biotin 10 mg oral capsule (20 sources) Start: 06-05-2024 Start: 01-17-2024 End: 04-03-2024 take 1 capsule by [facility] every twenty-four hours Biotin 5 MG 1 capsule Orally Once a day Active cholecalciferol 0.025 mg ora l capsule (20 sources) Vitamin D Start: 06-05-2024 Start: 01-17-2024 End: 06-05-2024 take 1 capsule by [facility] every twenty-four hours Vitamin D3 125 MCG (5000 UT) 1 capsule Orally Once a day Active take 1 capsule by [facility] every twenty-four hours Vitamin D3 25 MCG (1000 UT) 1 capsule Orally Once a day Active cholestyramine resin 4000 mg powder for oral suspension (1 source) Bile Acid Sequestrant Start: 03-07-2021 Questran 4 g/9 g oral powder = 1 packet(s), Oral, Daily, # 30 EA, Refills(s) 11, Pharmacy: [id number], 165.1, cm, 03/07/21 13:49:00 EDT, Height/Length [...] Date: 07/27/22 Status: Ordered Start: 06-19-2021 take 1 capsule by [facility] every twelve hours dilTIAZem HCl ER 120 MG 1 capsule Orally Twice a day Active famotidine 20 mg oral tablet (20 sources) Histamine-2 Receptor Antagonist Start: 01-17-2024 Start: 01-07-2023 take 1 tablet by [facility] every twenty-four hours Famotidine 20 [...] Glucose Sensor (Freestyle Familia 2 Sensor) kit (6 sources) Start: 05-07-2024 Flash Glucose Sensor (Freestyle Familia 2 Sensor) kit Active 0 .Route May 07, 2024 12:00am As directed furosemide 20 mg oral tablet (20 sources) Loop Diuretic Start: 06-16-2024 Start: 01-17-2024 End: 05-07-2024 Start: 07-27-2022 take 1 tablet by mouth once da meliton Lasix 20 mg Tab 20 mg = 1 tab(s), Oral, Daily, Refills(s) 0 Start Date: 07/27/22 Status: Ordered take 1 tablet by joesph th every twenty-four hours Lasix 40 MG 1 tablet Orally Once a day Active 3 ml insulin glargine 100 un t/ml pen injector (20 sources) Insulin Analog Start: 06-05-2024 End: 06-13-2024 Start: 03-25-2024 End: 04-03-2024 Start: 06-12-2021 End: 03-25-2024 Start: 06-12-2021 End: 01-17-2024 inject 40 [IU] [...] insulin isophane, human 100 unt/ml pen injector (13 sources) Start: 01-24-2024 Lantus Solostar Pen (1 source) Start: 07-27-2022 inject 35 [IU] by subcutaneous injection once daily at bedtime Lantus Solostar Pen 35 unit(s), SubCutaneous, Once a day (at bedtime), Refill(s) 0 Start Date: 07/27/22 Status: Ordered Loperamide (14 sources) Opioid Agonist metoprolol tartrate 100 mg oral tablet (20 sources) beta-Adrenergic Khadijah Start: 05-27-2024 End: 06-07-2024 Start: 02-19-2024 End: 05-27-2024 Metoprolol Tartrate Disconti nued 0 .ROUTE .COMPLEX 270 February 19, 2024 2:51pm May 27, 2024 3:55pm TAKE 1 AND 1/2 TABLETS TWICE DAILY Start: 02-19-2024 Metoprolol Tar trate Active 0 .ROUTE .COMPLEX 270 February 19, 2024 2:51pm TAKE 1 AND 1/2 TABLETS TWICE DAILY Start: 02-19-2024 End: 02-19-2024 Start: 07-27-2022 metoprolol tar trate 100 mg Tab 150 mg = 1.5 tab(s), Oral, BID, Refills(s) 0 Start Date: 07/27/22 Status: Ordered Start: 06-19-2021 End: 01-17-2024 Start: 06-19-2021 End: 01-17-2024 take 100 mg by mouth once daily Metoprolol Tartrate Di scontinued 100 MG PO Daily June 19, 2021 12:00am January 17, 2024 5:18pm take 1 tablet by joesph th every twenty-four hours nystatin [id number] unt/ml / triamcinolone acetonide 1 mg/ml topical cream (3 sources) Polyene Antifungal, Corticosteroid Start: 07-07-2024 Start: 07-07-2024 Nystatin-Triam cinolone Active 1 APPLIC TOPICAL Twice daily July 07, 2024 12:00am pantoprazole 40 mg delayed release [...] Xa Inhibitor Start: 06-12-2021 End: 06-30-2024 take 0.5 tablet by mouth once da [...] capsule Orally Once a day Active Vitamins A,C,L-Pqbt-Ecvodn (Preservision Areds) 4,296 mcg-226 mg-90 mg capsule (10 sources) Start: 01-17-2024 take 1 capsule by mouth twice daily Vitamins A,C,P-Nouk-Zyirhv (Preservision Areds) 4,296 mcg-226 mg-90 mg capsule Active 1 CAP PO Twice daily January 17, 2024 1:00am (20 sources) Start: 07-17-2024 Start: 07-16-2024 Start: 06-05-2024 End: 07-16-2024 Start: 06-05-2024 Start: 05-07-2024 End: 07-17-2024 Start: 05-07-2024 Start: 04-29-2024 End: 06-05-2024 Start: 03-31-2024 Start: 03-31-2024 End: 03-31-2024 Start: 03-25-2024 Start: 02-19-2024 End: 05-27-2024 Start: 01-23-2024 End: 04-03-2024 Start: 01-22-2024 End: 01-23-2024 Start: 01-17-2024 Start: 01-17-2024 End: 04-03-2024 Start: 01-16-2024 End: 01-24-2024 Start: 01-15-2024 End: 01-16-2024 Start: 06-12-2021 End: 01-15-2024 Completed/Discontinued Medications Medication Drug Class(es) Dates Sig (Normalized) Sig (Original) [id number] 200 actuat albuterol 0.09 mg/actuat metered dose inhaler (18 sources) beta2-Adrenergic Agonist Start: 01-17-2024 End: 04-03-2024 Start: 01-17-2024 End: 04-03-2024 take 1 puff(s) by inhalation every four hours Albuterol Sulfate Discontinued 2 PUFF INHALATION Every 4 hours January 17, 2024 1:00am April 03, 2024 11:36am Start: 10-18-2023 take 2 puff(s) by in halation every four hours as needed Albuterol Sulfate HFA 108 (90 Base) MCG/ACT 2 puff Inhalation every 4 hrs prn Oct, Active ALPRAZolam 0.25 mg oral tabl et (20 sources) Benzodiazepine Start: 06-05-2024 End: 07-07-2024 Start: 01-17-2024 End: 03-25-2024 Start: 01-17-2024 End: 01-30-2024 take 0.25 mg [...] bedtime Orally Once a day Not-Taking amylase 044474 unt / lipase 84817 unt / protease 75279 unt delayed release oral capsule (14 sources) Start: End: Start: 06-11-2021 End: 06-19-2021 Lqvrkp-Jgyjtfou-Tfzkklk (Cre on) 24,000-76,000 -120,000 unit capsule,delayed release(DR/EC) Discontinued 1 - 2 CAP PO 1-2 TIMES DAILY June 11, 2021 12:00am June 19, 2021 3:12am Start: 05-10-2021 Creon 24,000 u nits oral delayed release capsule See Instructions, take 3 caps with each meal and 2 caps with each snack., # 390 caplet(s), Refills(s) 0, Pharmacy: [id number], 165.1, cm, 04/18/21 13:02:00 EDT, Height/Length Dosing, 116.4, kg, 04/18/21 13:02:00 EDT, Weight Dosing Start Date: 05/10/21 Status: Ordered carvedilol 6.25 mg oral tabl et (13 sources) alpha-Adrenergic Khadijah, beta-Adrenergic Khadijah Start: 06-12-2021 End: 01-17-2024 cefdinir 300 mg oral capsule (13 sources) Cephalosporin Antibacterial Start: 06-12-2021 End: 01-17-2024 dapagliflozin 10 mg oral tablet (20 sources) Sodium-Glucose Cotransporter 2 Inhibitor Start: 01-22-2024 End: 04-03-2024 FARXIGA Active Dapagliflozin Pr opanediol 10 MG 1 tablet once a day Active fluconazole 100 mg oral tabl et (13 sources) Azole Antifungal Start: 06-12-2021 End: 01-17-2024 Garlic (20 sources) Non-Standardized Food Allergenic Extract [...] A DAY Active 3 ml insulin aspart protamin e, human 70 unt/ml / insulin aspart, human 30 unt/ml pen injector (20 sources) Insulin Analog Start: 06-12-2021 End: 06-12-2021 Start: 06-12-2021 End: 06-12-2021 Insulin Asp Prt-Insulin Aspa rt (Novolog Mix 70-30flexpen U-100) 100 unit/mL (70-30) Insulin Pen Discontinued 20 UNIT SUBCUT With breakfast and supper June 12, 2021 12:00am June 12, 2021 12:52pm inject 1 [IU] by sub cutaneous injection once NovoLOG Mix 70/30 FlexPen (70-30) 100 UNIT/ML as directed Subcutaneous 1 unit per sliding scale Active Insulin Aspart U-100 (Novolog Flexpen U-100 Insulin) 100 unit/mL (3 mL) Insulin Pen (10 sources) Start: 06-12-2021 End: 01-15-2024 inject 14 [...] Insulin) 100 unit/mL (3 mL) insulin pen (20 sources) Start: 01-16-2024 End: 01-24-2024 inject 14 [...] January 16, 2024 3:13pm ketoconazole 20 mg/ml topica l cream (13 sources) Azole Antifungal Start: 02-15-2024 End: 04-29-2024 Start: 02-15-2024 End: 04-29-2024 Ketoconazole Discontinued 1 APPLIC TOPICAL Daily February 15, 2024 12:00am April 29, 2024 1:36pm ketorolac tromethamine 5 mg/ml ophthalmic solution (13 sources) Nonsteroidal Anti-inflammatory Drug, Cyclooxygenase Inhibitor Start: 06-11-2021 End: 06-12-2021 Start: 06-11-2021 End: 06-12-2021 Ketorolac Discontinued DROPS SOLUTION/ DROPS June 11, 2021 12:00am June 12, 2021 3:16am levothyroxine sodium 0.125 m g oral tablet (20 sources) l-Thyroxine Start: 04-03-2024 End: 07-07-2024 Start: 04-03-2024 End: 07-07-2024 take 1 tablet by mouth once daily Levothyroxine Active 0 .ROUTE .COMPLEX July 07, 2024 12:54pm TAKE 1 TABLET BY MOUTH DAILY Start: 04-03-2024 End: 04-03-2024 Start: 06-11-2021 End: 04-03-2024 Start: 03-07-2021 take 112 ug by mouth once daily levothyroxine 112 mcg, Oral, Daily, Refills(s) 0 Start Date: 03/07/21 Status: Ordered Levothyroxine So dium 112 MCG TAKE 1 TABLET EVERY DAY for 90 Active lisinopril 20 mg oral tablet (20 sources) Angiotensin Converting Enzyme Inhibitor Start: 03-07-2021 End: 05-07-2024 meloxicam 15 mg oral tablet (12 sources) Nonsteroidal Anti-inflammatory Drug Start: 08-25-2021 take 1 tablet by mouth every twenty-four hours Mobic 15 MG 1 tablet Orally Once a day for 30 day(s) Aug, Not-Taking metroNIDAZOLE 500 mg oral tablet (20 sources) Nitroimidazole Antimicrobial Start: 04-10-2024 End: 06-05-2024 Start: 01-30-2024 End: 03-25-2024 Start: 01-30-2024 End: 03-25-2024 take 1 tablet by mouth three times daily Metronidazole Discontinued 0 .ROUTE .COMPLEX January 30, 2024 12:55pm March 25, 2024 3:47pm TAKE 1 TABLET BY MOUTH THREE TIMES DAILY FOR 10 DAYS Start: 01-29-2024 End: 01-30-2024 Start: 01-29-2024 End: 01-30-2024 take 500 mg by mouth three times daily Metronidazole Discontinued 500 MG PO Three times daily 10 09January 29, 2024 12:00am January 30, 2024 12:56pm Start: 07-23-2023 take 1 tablet by joesph th every eight hours metroNIDAZOLE 500 MG 1 tablet Orally Three times a day for 10 days Jul, Active Start: 03-07-2023 take 1 tablet by joesph every eight hours nystatin 305486 unt/ml topical cream (20 sources) Polyene Antifungal Start: 04-29-2024 End: 06-05-2024 take 1 mL by mouth three times daily Nystatin Discontinued 1 ML PO Three times daily 60 April 29, 2024 12:00am June 05, 2024 12:06pm swish and swallow Start: 04-29-2024 take 1 mL by mouth t hree times daily Nystatin Active 1 ML PO Three times daily 60 April 29, 2024 12:00am swish and swallow Start: 01-17-2024 End: 07-16-2024 Start: 01-17-2024 End: 07-16-2024 Nystatin Discontinued 1 APPL IC TOPICAL Twice daily June 05, 2024 12:06pm July 16, 2024 10:36am Nystatin [id number] UNIT/GM 1 application Externally Twice a day for 10 days Active Nystatin [id number] UNIT/GM 1 application Externally Twice a day for 10 days Active [place] 2-Hvm-Wjc-Fish Oil (Fish Oil) 1,000 mg (120 mg-180 mg) capsule (10 sources) Start: 01-17-2024 End: 04-03-2024 take 1 capsule by mouth once daily [place] 3-Veu-Wgi-Fish Oil (Fish Oil) 1,000 mg (120 mg-180 mg) capsule Discontinued 1 CAP PO Daily January 17, 2024 1:00am April 03, 2024 11:49am Start: 01-17-2024 take 1 capsule by mo [facility] once daily [place] 1-Uxv-Dmu-Fish Oil (Fish Oil) 1,000 mg (120 mg-180 mg) capsule Active 1 CAP PO Daily January 17, 2024 1:00am 24 hr oxybutynin chloride 10 mg extended release oral tablet (13 sources) Cholinergic Muscarinic Antagonist Start: 02-15-2024 End: 06-05-2024 selenomethionine 0.2 mg oral tablet (13 sources) Start: 01-17-2024 End: 04-03-2024 spironolactone 50 mg oral tablet (20 sources) Aldosterone Antagonist Start: 06-05-2024 End: 07-16-2024 take 50 mg by mouth once daily Spironolactone Discontinued 50 MG PO Daily June 05, 2024 12:00am July 16, 2024 10:38am Start: 01-17-2024 End: 05-07-2024 take 1 tablet by joesph th every twenty-four hours Spironolactone 25 MG 1 tablet Orally Once a day Active sucralfate 1000 mg oral tabl et (20 sources) Aluminum Complex Start: 01-17-2024 End: 04-03-2024 Start: 03-23-2023 take 1 tablet by joesph th every twelve hours take 1 tablet by joesph th every twelve hours Sucralfate 1 GM 1 tablet on an empty stomach Orally Twice a day Active 24 hr venlafaxine 37.5 mg extended release oral capsule (13 sources) Serotonin and Norepinephrine Reuptake Inhibitor Start: 06-11-2021 End: 01-17-2024 Problems Active Problems Problem Classification Problem Date Documented Date Episodic/Chronic Acute and unspecified renal failure (1 source) Acute kidney failure, unspecified Episodic Anxiety disorders (13 sources) Anxiety; Translations: [Anxiety disorder, unspecified] 01-30-2024 [...] Coronary arteriosclerosis; Translations: [Atherosclerotic heart disease of [place] coronary artery without angina pectoris] Onset: 2 01-17-2024 Chronic Coronary atherosclerosis and other heart disease (1 source) Coronary angioplasty status; Translations: [CORONARY ANGIOPLASTY STATUS] Onset: 3 Episodic Diabetes mellitus with complications (20 sources) Disorder of kidney due to diabetes mellitus; Translations: [Type 2 diabetes mellitus with diabetic chronic kidney disease] Onset: 3 07-27-2022 Chronic Diabetes mellitus without complication (17 sources) Diabetes mellitus; Translations: [Type 2 diabetes mellitus without complications] Onset: 2 07-27-2022 Chronic Diabetes mellitus without complication (13 sources) Hyperglycemia; Translations: [Hyperglycemia, unspecified] 06-12-2021 Episodic Disorders of lipid metabolism (18 sources) Hypercholesterolemia; Translations: [Hyperlipidemia] Onset: 2 07-27-2022 Chronic Diverticulosis and diverticulitis (20 sources) Diverticulitis; Translations: [Diverticulitis of intestine, part unspecified, without perforation or abscess without bleeding] Chronic Esophageal disorders (20 sources) Gastroesophageal reflux disease; Translations: [Gastroesophageal reflux disease without esophagitis] Onset: 3 07-27-2022 Chronic Essential hypertension (20 sources) Hypertensive disorder; Translations: [Essential (primary) hypertension] Onset: 2 07-27-2022 Chronic Fluid and electrolyte disorders (8 sources) Dehydration; Translations: [Hypokalemia] Onset: 3 Episodic Genitourinary symptoms and ill-defined conditions (20 sources) Genuine stress incontinence; Translations: [Stress incontinence (female) (male)] Chronic Genitourinary symptoms and ill-defined conditions (3 sources) Dysuria; Translations: [Dysuria] Onset: 4 07-17-2024 Episodic Hypertension with complications and secondary hypertension (20 sources) Chronic kidney disease due to hypertension; Translations: [Hypertensive chronic kidney disease with stage 1 through stage 4 chronic kidney disease, or unspecified chronic kidney disease] Onset: 3 Chronic Immunizations and screening for infectious disease (16 sources) Immunization due; Translations: [Encounter for immunization] 01-18-2024 Episodic Inflammation; infection of eye (except that caused by tuberculosis or sexually transmitteddisease) (13 sources) External hordeolum; Translations: [Hordeolum externum unspecified [...] sources) Long-term current use of insulin; Translations: [[facility] (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 insulin] 01-17-2024 Episodic Other aftercare (1 source) Other [facility] (current) drug therapy; 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: [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] Onset: 3 Episodic Other aftercare (1 source) [facility] (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 anticoagulants; Translations: [AUTOMATION DRIVER 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 USE 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] Onset: 3 Episodic Other [...] Chronic Other diseases of kidney and ureters (13 sources) Secondary hyperparathyroidism of renal origin; Translations: [Secondary hyperparathyroidism (of renal origin)] 03-25-2024 Chronic Other diseases of veins and lymphatics (13 sources) Lymphedema; Translations: [Lymphedema, not elsewhere classified] 01-17-2024 Chronic Other eye disorders (13 sources) Chalazion; Translations: [Chalazion right eye, unspecified [...] UNSPECIFIED] Onset: 2 Episodic Other gastrointestinal disorders (9 sources) Swollen abdomen; Translations: [Generalized intra-abdominal and pelvic swelling, mass and lump] 05-07-2024 Episodic Other gastrointestinal disorders (9 sources) Generalized intra-abdominal and pelvic swelling, mass and lump; Translations: [Abdominal or pelvic swelling, mass, or lump, generalized] 05-07-2024 Episodic Other lower respiratory disease (4 sources) Shortness of breath; Translations: [SHORTNESS OF BREATH] Onset: 3 Episodic Other lower respiratory disease (13 sources) Dyspnea; Translations: [Dyspnea, unspecified] 06-12-2021 Episodic Other nervous system disorders (7 sources) Tremor, unspecified; Translations: [Abnormal involuntary movements] Episodic Other nervous system disorders (6 sources) Tremor; Translations: [Tremor, unspecified] 06-16-2024 Episodic [...] Chronic Other nutritional; endocrine; and metabolic disorders (13 sources) Intolerance to lactose; Translations: [Lactose intolerance, unspecified] 01-17-2024 Chronic Other nutritional; endocrine; and metabolic disorders (20 sources) Loss of appetite; Translations: [Anorexia] Episodic Other skin disorders (8 sources) Localized swelling, mass and lump, right upper limb; Translations: [Mass of right axilla] 07-07-2024 Episodic Other upper respiratory infections (5 sources) Pharyngitis; Translations: [Acute pharyngitis, unspecified] 06-25-2024 Episodic Pancreatic disorders (not diabetes) (1 source) Exocrine pancreatic insufficiency 07-27-2022 Episodic Phlebitis; thrombophlebitis and thromboembolism (2 sources) Phlebitis and thrombophlebitis of superficial vessels of unspecified lower extremity; Translations: [Phlebitis and thrombophlebitis of superficial vessels of unspecified lower extremity] Onset: Episodic Pulmonary heart disease (1 source) Pulmonary [...] Retinal detachments; defects; vascular occlusion; and retinopathy (14 sources) Unspecified macular degeneration; Translations: [Degenerative disorder [...] disc disorders; other back problems (20 sources) Chronic low back pain; Translations: [Post-surgery back pain] 07-27-2022 Episodic Syncope (13 sources) Near syncope; Translations: [Syncope and collapse] 06-19-2021 Episodic Thyroid disorders (20 sources) Hypothyroidism; Translations: [Hypothyroidism, unspecified] 07-27-2022 Chronic Unclassified (1 source) CONTACT W/AND (SUSP) EXPOS COVID-19; Translations: [CONTACT W/AND (SUSP) EXPOS COVID-19] Onset: 3 Unclassified (1 source) Low back pain, unspecified; Translations: [Low back pain, unspecified] Onset: 4 Urinary tract infections (18 sources) Urinary tract infectious disease; Translations: [Urinary tract infection, site not specified] 05-07-2024 Episodic Past or Other Problems Problem Classification Problem Date Documented Da te Episodic/Chronic Other aftercare (4 sources) [facility] (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 insulin; Translations: [ASSISTED CURRENT USE OF INSULIN] Onset: 02-19-2023 Episodic Residual codes; unclassified (1 source) Generalized edema; Translations: [GENERALIZED EDEMA] Onset: 09-21-2022 Episodic Results Test Name Value Interpretation Reference Range Facility Urine Cultureon 07-17-2024 Bacteria identified Cx Nom (U) ORGANISM: Citrobacter freundii complex (O:CITFRC) [place] Count >100,000 ORGANISM: Proteus mirabilis (O:PROMIR) [place] Count 20,000 Aerobic MIRTHA Charge (NMIC56) ---- SUSCEPTIBILITY --- ORGANISM: O:CITFRC ANTIBIOTIC INTERPRETATION MIRTHA Amikacin S <16 Aztreonam IB <4 Cefepime S <2 Ceftazidime IB <1 Ceftazidime/Avibactam S <4 Ceftriaxone IB <1 Ciprofloxacin S <0.25 Ertapenem S <0.5 Gentamicin S <2 Levofloxacin S <0.5 Meropenem S <1 Nitrofurantoin S <32 Piperacillin/Tazobact am IB <8 Tetracycline S <4 Tigecycline S <2 Tobramycin S <2 Trimethoprim/Sulfamet hoxazole S <0.5 Aerobic MIRTHA Charge (NMIC56) ---- SUSCEPTIBILITY --- ORGANISM: O:PROMIR ANTIBIOTIC INTERPRETATION MIRTHA Amikacin S <16 Amoxacillin/K Clavulanate S <8 Ampicillin S <8 Ampicillin/Sulbactam S <4 Aztreonam S <4 Cefazolin S <2 Cefepime S <2 Ceftazidime S <1 Ceftazidime/Avibactam S <4 Ceftolozane/Tazobacta m S <2 Ceftriaxone S <1 Cefuroxime S <4 Ciprofloxacin S <0.25 Ertapenem S <0.5 Gentamicin S <2 Levofloxacin S <0.5 Meropenem S <1 Meropenem/Vaborbactam S <2 Piperacillin/Tazobact am S <8 Tobramycin S <2 Trimethoprim/Sulfamet hoxazole S <0.5 S = SUSCEPTIBLE I = INTERMEDIATE R = RESISTANT BLANK = DATA NOT AVAILABLE, OR DRUG NOT ADVISABLE OR TESTED R* = RESISTANCE DUE TO EXTENDED SPECTRUM BETA-LACTAMASES ESBL = EXTENDED SPECTRUM BETA-LACTAMASE TFG = THYMIDINE-DEPENDENT STRAIN WILLIAN = BETA-LACTAMASE POSITIVE IB = INDUCIBLE BETA-LACTAMASE. APPEARS IN PLACE OF 'S' WITH SPECIES KNOWN TO POSSESS INDUCIBLE BETA-LACTAMASES. POTENTIALLY THEY MAY BECOME RESISTANT TO ALL B-LACTAM DRUGS. PERFORMED BY: [address] [place] [address] PATHOLOGIST PARTS CHASER CHOLO YEAGER M.D. Normal [facility] Comment on above: Performed By: #### C UU #### [address] Erythrocyte distribution wid th Auto (RBC) [Ratio]on 07-15-2024 Erythrocyte distribution width (RBC) [Ratio] 13.3 % 11.0-15.0 [facility] Estimated glomerular filtrat ion rate (GFR) non- Americanon 07-15-2024 GFR/1.73 sq M.predicted among non-blacks MDRD (S/P/Bld) [Vol rate/Area] 47 mL/min/{1.73_m2} Low >=60 [facility] Globulin Calc (S) [Mass/Vol] on 07-15-2024 Globulin (S) [Mass/Vol] 4.2 g/dL [facility] Hematocrit Auto (Bld) [Volum e fraction]on 07-15-2024 Hematocrit (Bld) [Volume fraction] 34.9 % Low 36.0-48.0 [facility] Hemoglobin [Mass/volume] in Bloodon 07-15-2024 Hemoglobin (Bld) [Mass/Vol] 11.6 g/dL Low 12.0-16.0 [facility] Laboratory - Chemistry and C hemistry - challengeon 07-15-2024 Bilirubin Ql (U) Negative NEGATIVE [facility] Glucose (U) [Mass/Vol] Negative NEGATIVE [facility] Ketones Ql (U) Negative NEGATIVE [facility] pH (U) 6.5 [pH] 5.0-9.0 [facility] Specific gravity (U) [Rel density] 1.020 1.005-1.025 [facility] Urobilinogen Qn (U) 0.2 {Meka'U}/dL 0.2-1.0 [facility] Albumin [Mass/Vol] 2.6 g/dL Low 3.4-5.0 [facility] ALP [Catalytic activity/Vol] 87 U/L 46-116 [facility] ALT [Catalytic activity/Vol] 18 U/L 14-59 [facility] AST [Catalytic activity/Vol] 14 U/L Low 15-37 [facility] Bilirubin [Mass/Vol] 0.6 mg/dL 0.2-1.0 [facility] Calcium [Mass/Vol] 8.6 mg/dL 8.5-10.1 [facility] Chloride [Moles/Vol] 101 mmol/L 98-107 [facility] CO2 [Moles/Vol] 31.4 mmol/L 21.0-32.0 [facility] Creatinine [Mass/Vol] 1.12 mg/dL High 0.55-1.02 [facility] GFR/1.73 sq M.predicted MDRD (S/P/Bld) [Vol rate/Area] 57 mL/min/{1.73_m2} Low >=60 [facility] Glucose [Mass/Vol] 153 mg/dL High 74-106 [facility] Natriuretic peptide B (Bld) [Mass/Vol] 3410.0 pg/mL High <=1800.0 [facility] Comment on above: RESULTS CALLED TO Bogdan Robin RN at 0840 Potassium [Moles/Vol] 3.6 mmol/L 3.5-5.1 [facility] Protein [Mass/Vol] 6.8 g/dL 6.4-8.2 [facility] Sodium [Moles/Vol] 141 mmol/L 136-145 [facility] Urea nitrogen [Mass/Vol] 43.0 mg/dL High 7.0-18.0 [facility] Urea nitrogen/Creatinine [Mass ratio] 38.4 mg/mg [facility] Laboratory - Specimen inform ationon 07-15-2024 Appearance (U) CLEAR CLEAR [facility] Color (U) LT. YELLOW YELLOW [facility] Laboratory - Urinalysison Leukocyte esterase Test strip Ql (U) Negative NEGATIVE [facility] Mucus Ql (Urine sed) NONE SEEN NONE SEEN [facility] Nitrite Ql (U) Negative NEGATIVE [facility] Protein Ql (U) 100 mg/dL Abnormal NEG/TRACE [facility] Leukocytes [#/volume] correc gali for nucleated erythrocytes in Blood by Automated counon 09-03-2024 WBC corrected for nucl RBC Auto (Bld) [#/Vol] 8.5 10 3/uL 4.0-11.0 [facility] MCH Auto (RBC) [Entitic mass ]on 07-15-2024 MCH (RBC) [Entitic mass] 29.9 pg 26.7-34.0 [facility] MCHC Auto (RBC) [Mass/Vol]on 07-15-2024 MCHC (RBC) [Mass/Vol] 33.2 g/dL 29.9-35.2 Fir [facility] MCV Auto (RBC) [Entitic vol] on 07-15-2024 MCV (RBC) [Entitic vol] 89.9 fL 81.0-99.0 [facility] No Panel Informationon 07-15 Urine Bacteria NONE SEEN #/HPF NONE SEEN [facility] Urine Occult Blood TRACE-I NEGATIVE [facility] Urine RBC 0-2 #/HPF 0-2 [facility] Urine Squamous Epithelial Cells FEW #/LPF Abnormal NONE/RARE [facility] Urine WBC NONE SEEN #/HPF NONE SEEN [facility] NONE SEEN #/HPF NONE SEEN [facility] Negative NEGATIVE [facility] TRACE-I NEGATIVE [facility] CLEAR CLEAR [facility] LT. YELLOW YELLOW [facility] NONE SEEN NONE SEEN [facility] 6.5 5.0-9.0 [facility] 100 mg/dL Abnormal NEG/TRACE [facility] 0-2 #/HPF 0-2 [facility] 1.020 1.005-1.025 [facility] FEW #/LPF Abnormal NONE/RARE [facility] 0.2 EU/dL 0.2-1.0 [facility] Troponin I High Sensitivity 21.3 pg/mL 4.0-51.3 [facility] Comment on above: CUT-OFF POINTS HAVE [...] IN CONJUNCTIONWITH OTHER DIAGNOSTIC AND CLINICAL INFORMATION. 3410.0 pg/mL High <=1800.0 [facility] 21.3 pg/mL 4.0-51.3 [facility] 2.6 g/dL Low 3.4-5.0 [facility] 87 U/L 46-116 [facility] 18 U/L 14-59 [facility] 14 U/L Low 15-37 [facility] 38.4 [facility] 43.0 mg/dL High 7.0-18.0 [facility] 8.6 mg/dL 8.5-10.1 [facility] 101 mmol/L 98-107 [facility] 31.4 mmol/L 21.0-32.0 [facility] 1.12 mg/dL High 0.55-1.02 [facility] 57 Low >=60 [facility] 153 mg/dL High 74-106 [facility] 3.6 mmol/L 3.5-5.1 [facility] 141 mmol/L 136-145 [facility] 0.6 mg/dL 0.2-1.0 [facility] 6.8 g/dL 6.4-8.2 [facility] Platelet mean volume Auto (B ld) [Entitic vol]on 07-15-2024 Platelet mean volume (Bld) [Entitic vol] 11.0 fL 9.5-13.5 [facility] Platelets Auto (Bld) [#/Vol] on 07-15-2024 Platelets (Bld) [#/Vol] 177 10 3/uL 150-450 [facility] RBC Auto (Bld) [#/Vol]on RBC (Bld) [#/Vol] 3.88 10 6/uL Low 4.20-5.40 [facility] Serum or plasma albumin/glob ulin mass ratioon 07-15-2024 Albumin/Globulin [Mass ratio] 0.6 {ratio} [facility] Serum or plasma anion gap de terminationon 07-15-2024 Anion gap [Moles/Vol] 12.2 mmol/L [facility] Basophils Auto (Bld) [#/Vol] on 07-14-2024 Basophils (Bld) [#/Vol] 0.1 10 3/uL 0.0-0.1 [facility] Basophils/100 WBC Auto (Bld) on 07-14-2024 Basophils/100 WBC (Bld) 0.9 % 0.2-2.0 [facility] Eosinophils/100 WBC Auto (Bl d)on 07-14-2024 Eosinophils/100 WBC (Bld) 1.3 % 0.9-7.0 [facility] Erythrocyte distribution wid th Auto (RBC) [Ratio]on 07-14-2024 Erythrocyte distribution width (RBC) [Ratio] 13.5 % 11.0-15.0 [facility] Estimated glomerular filtrat ion rate (GFR) non- Americanon 07-14-2024 GFR/1.73 sq M.predicted among non-blacks MDRD (S/P/Bld) [Vol rate/Area] 30 mL/min/{1.73_m2} Low >=60 [facility] Hematocrit Auto (Bld) [Volum e fraction]on 07-14-2024 Hematocrit (Bld) [Volume fraction] 38.5 % 36.0-48.0 [facility] Hemoglobin [Mass/volume] in Bloodon 07-14-2024 Hemoglobin (Bld) [Mass/Vol] 12.8 g/dL 12.0-16.0 [facility] Laboratory - Chemistry and C hemistry - challengeon 07-14-2024 Calcium [Mass/Vol] 9.0 mg/dL 8.5-10.1 [facility] Chloride [Moles/Vol] 96 mmol/L Low 98-107 [facility] CO2 [Moles/Vol] 35.5 mmol/L High 21.0-32.0 [facility] Creatinine [Mass/Vol] 1.65 mg/dL High 0.55-1.02 [facility] GFR/1.73 sq M.predicted MDRD (S/P/Bld) [Vol rate/Area] 36 mL/min/{1.73_m2} Low >=60 [facility] Glucose [Mass/Vol] 458 mg/dL High 74-106 [facility] Potassium [Moles/Vol] 4.0 mmol/L 3.5-5.1 [facility] Sodium [Moles/Vol] 135 mmol/L Low 136-145 [facility] Urea nitrogen [Mass/Vol] 52.0 mg/dL High 7.0-18.0 [facility] Urea nitrogen/Creatinine [Mass ratio] 31.5 mg/mg [facility] Laboratory - Hematology and Cell countson 07-14-2024 Immature granulocytes/100 WBC (Bld) 0.1 % 0.0-0.5 [facility] Leukocytes [#/volume] correc gali for nucleated erythrocytes in Blood by Automated counon 07-14-2024 WBC corrected for nucl RBC Auto (Bld) [#/Vol] 8.2 10 3/uL 4.0-11.0 [facility] Lymphocytes Auto (Bld) [#/Vo l]on 07-14-2024 Lymphocytes (Bld) [#/Vol] 1.1 10 3/uL Low 1.2-3.8 [facility] Lymphocytes/100 WBC Auto (Bl d)on 07-14-2024 Lymphocytes/100 WBC (Bld) 13.7 % Low 20.5-60.0 [facility] MCH Auto (RBC) [Entitic mass ]on 07-14-2024 MCH (RBC) [Entitic mass] 30.0 pg 26.7-34.0 [facility] MCHC Auto (RBC) [Mass/Vol]on 07-14-2024 MCHC (RBC) [Mass/Vol] 33.2 g/dL 29.9-35.2 [facility] MCV Auto (RBC) [Entitic vol] on 07-14-2024 MCV (RBC) [Entitic vol] 90.2 fL 81.0-99.0 [facility] Monocytes Auto (Bld) [#/Vol] on 07-14-2024 Monocytes (Bld) [#/Vol] 0.5 10 3/uL 0.3-0.8 [facility] Monocytes/100 WBC Auto (Bld) on 07-14-2024 Monocytes/100 WBC (Bld) 6.6 % 1.7-12.0 [facility] Neutrophils Auto (Bld) [#/Vo l]on 07-14-2024 Neutrophils (Bld) [#/Vol] 6.3 10 3/uL 1.4-6.5 [facility] Neutrophils/100 WBC Auto (Bl d)on 07-14-2024 Neutrophils/100 WBC (Bld) 77.4 % High 43.0-75.0 [facility] No Panel Informationon 07-14 Eosinophils # (Auto) 0.1 10 3/uL 0.0-0.7 [facility] Immature Granulocyte # (Auto) 0.01 10 3/uL 0.00-0.03 [facility] Troponin I High Sensitivity 17.9 pg/mL 4.0-51.3 [facility] Comment on above: CUT-OFF POINTS HAVE [...] IN CONJUNCTIONWITH OTHER DIAGNOSTIC AND CLINICAL INFORMATION. 17.9 pg/mL 4.0-51.3 [facility] 31.5 [facility] 0.1 10 3/uL 0.0-0.7 [facility] 52.0 mg/dL High 7.0-18.0 [facility] 9.0 mg/dL 8.5-10.1 [facility] 96 mmol/L Low 98-107 [facility] 35.5 mmol/L High 21.0-32.0 [facility] 0.01 10 3/uL 0.00-0.03 [facility] 1.65 mg/dL High 0.55-1.02 [facility] 0.1 % 0.0-0.5 [facility] 36 Low >=60 [facility] 458 mg/dL High 74-106 [facility] 4.0 mmol/L 3.5-5.1 [facility] 135 mmol/L Low 136-145 [facility] Platelet mean volume Auto (B ld) [Entitic vol]on 07-14-2024 Platelet mean volume (Bld) [Entitic vol] 11.0 fL 9.5-13.5 [facility] Platelets Auto (Bld) [#/Vol] on 07-14-2024 Platelets (Bld) [#/Vol] 182 10 3/uL 150-450 [facility] RBC Auto (Bld) [#/Vol]on RBC (Bld) [#/Vol] 4.27 10 6/uL 4.20-5.40 [facility] Serum or plasma anion gap de terminationon 07-14-2024 Anion gap [Moles/Vol] 7.5 mmol/L [facility] 36on 07-01-2024 36 Regarding lab result s from 06/24/2024: MD Brooke Onofre MA Can you please check with her how she is doing on the Bumex. If she has lost weight and responded well then she can reduce it to once daily and take an extra pill if needed for increased swelling and weight gain. LM for patient to return my call. Normal [facility] Estimated glomerular filtrat ion rate (GFR) non- Americanon 06-24-2024 GFR/1.73 sq M.predicted among non-blacks MDRD (S/P/Bld) [Vol rate/Area] 38 mL/min/{1.73_m2} Low >=60 [facility] Laboratory - Chemistry and C hemistry - challengeon 06-24-2024 Calcium [Mass/Vol] 8.4 mg/dL Low 8.5-10.1 [facility] Chloride [Moles/Vol] 100 mmol/L 98-107 [facility] CO2 [Moles/Vol] 31.1 mmol/L 21.0-32.0 [facility] Creatinine [Mass/Vol] 1.34 mg/dL High 0.55-1.02 [facility] GFR/1.73 sq M.predicted MDRD (S/P/Bld) [Vol rate/Area] 46 mL/min/{1.73_m2} Low >=60 [facility] Glucose [Mass/Vol] 222 mg/dL High 74-106 [facility] Potassium [Moles/Vol] 3.6 mmol/L 3.5-5.1 Fir [facility] Sodium [Moles/Vol] 138 mmol/L 136-145 [facility] Urea nitrogen [Mass/Vol] 32.0 mg/dL High 7.0-18.0 [facility] Urea nitrogen/Creatinine [Mass ratio] 23.9 mg/mg [facility] No Panel Informationon 06-24 23.9 [facility] 32.0 mg/dL High 7.0-18.0 [facility] 8.4 mg/dL Low 8.5-10.1 [facility] 100 mmol/L 98-107 [facility] 31.1 mmol/L 21.0-32.0 [facility] 1.34 mg/dL High 0.55-1.02 [facility] 46 Low >=60 [facility] 222 mg/dL High 74-106 [facility] 3.6 mmol/L 3.5-5.1 [facility] 138 mmol/L 136-145 [facility] Serum or plasma anion gap de terminationon 06-24-2024 Anion gap [Moles/Vol] 10.5 mmol/L [facility] Office Visiton 06-18-2024 Follow-up visit [id number] Joe Call 1945 F Date Provider Department Center 06/18/2024 RICA DEAN LOVE Bruno Family History Problem Relation Age of Onset Coronary artery disease Other Diabetes Other Polycystic kidney disease Other Family Status - Relation Status Age at Other Level of Service:004[address] CT OFFICE/OUTPATIENT ESTABLISHED MOD MDM 30 MIN Normal [facility] Basophils Auto (Bld) [#/Vol] on 06-10-2024 Basophils (Bld) [#/Vol] 0.1 10 3/uL 0.0-0.1 [facility] Basophils/100 WBC Auto (Bld) on 06-10-2024 Basophils/100 WBC (Bld) 1.0 % 0.2-2.0 [facility] Eosinophils/100 WBC Auto (Bl d)on 06-10-2024 Eosinophils/100 WBC (Bld) 1.3 % 0.9-7.0 [facility] Erythrocyte distribution wid th Auto (RBC) [Ratio]on 06-10-2024 Erythrocyte distribution width (RBC) [Ratio] 14.6 % 11.0-15.0 [facility] Estimated glomerular filtrat ion rate (GFR) non- Americanon 06-10-2024 GFR/1.73 sq M.predicted among non-blacks MDRD (S/P/Bld) [Vol rate/Area] 54 mL/min/{1.73_m2} Low >=60 [facility] Globulin Calc (S) [Mass/Vol] on 06-10-2024 Globulin (S) [Mass/Vol] 4.5 g/dL [facility] Hematocrit Auto (Bld) [Volum e fraction]on 06-10-2024 Hematocrit (Bld) [Volume fraction] 36.8 % 36.0-48.0 [facility] Hemoglobin [Mass/volume] in Bloodon 06-10-2024 Hemoglobin (Bld) [Mass/Vol] 12.1 g/dL 12.0-16.0 [facility] Laboratory - Chemistry and C hemistry - challengeon 06-10-2024 Albumin [Mass/Vol] 2.4 g/dL Low 3.4-5.0 [facility] ALP [Catalytic activity/Vol] 94 U/L 46-116 [facility] ALT [Catalytic activity/Vol] 13 U/L Low 14-59 [facility] AST [Catalytic activity/Vol] 13 U/L Low 15-37 [facility] Bilirubin [Mass/Vol] 0.9 mg/dL 0.2-1.0 [facility] Calcium [Mass/Vol] 8.9 mg/dL 8.5-10.1 [facility] Chloride [Moles/Vol] 101 mmol/L 98-107 [facility] CO2 [Moles/Vol] 29.4 mmol/L 21.0-32.0 [facility] Creatinine [Mass/Vol] 1.00 mg/dL 0.55-1.02 [facility] GFR/1.73 sq M.predicted MDRD (S/P/Bld) [Vol rate/Area] mL/min/{1.73_m2} >=60 [facility] Glucose [Mass/Vol] 167 mg/dL High 74-106 [facility] Potassium [Moles/Vol] 3.4 mmol/L Low 3.5-5.1 [facility] Protein [Mass/Vol] 6.9 g/dL 6.4-8.2 [facility] Sodium [Moles/Vol] 136 mmol/L 136-145 [facility] Urea nitrogen [Mass/Vol] 24.0 mg/dL High 7.0-18.0 [facility] Urea nitrogen/Creatinine [Mass ratio] 24.0 mg/mg [facility] Laboratory - Hematology and Cell countson 06-10-2024 Immature granulocytes/100 WBC (Bld) 0.3 % 0.0-0.5 [facility] Leukocytes [#/volume] correc gali for nucleated erythrocytes in Blood by Automated counon 06-10-2024 WBC corrected for nucl RBC Auto (Bld) [#/Vol] 7.9 10 3/uL 4.0-11.0 [facility] Lymphocytes Auto (Bld) [#/Vo l]on 06-10-2024 Lymphocytes (Bld) [#/Vol] 1.3 10 3/uL 1.2-3.8 [facility] Lymphocytes/100 WBC Auto (Bl d)on 06-10-2024 Lymphocytes/100 WBC (Bld) 16.8 % Low 20.5-60.0 [facility] MCH Auto (RBC) [Entitic mass ]on 06-10-2024 MCH (RBC) [Entitic mass] 29.8 pg 26.7-34.0 [facility] MCHC Auto (RBC) [Mass/Vol]on 06-10-2024 MCHC (RBC) [Mass/Vol] 32.9 g/dL 29.9-35.2 [facility] MCV Auto (RBC) [Entitic vol] on 06-10-2024 MCV (RBC) [Entitic vol] 90.6 fL 81.0-99.0 [facility] Monocytes Auto (Bld) [#/Vol] on 06-10-2024 Monocytes (Bld) [#/Vol] 0.8 10 3/uL 0.3-0.8 [facility] Monocytes/100 WBC Auto (Bld) on 06-10-2024 Monocytes/100 WBC (Bld) 9.8 % 1.7-12.0 [facility] Neutrophils Auto (Bld) [#/Vo l]on 06-10-2024 Neutrophils (Bld) [#/Vol] 5.6 10 3/uL 1.4-6.5 [facility] Neutrophils/100 WBC Auto (Bl d)on 06-10-2024 Neutrophils/100 WBC (Bld) 70.8 % 43.0-75.0 [facility] No Panel Informationon 06-10 Eosinophils # (Auto) 0.1 10 3/uL 0.0-0.7 [facility]ir [facility] Immature Granulocyte # (Auto) 0.02 10 3/uL 0.00-0.03 [facility] 2.4 g/dL Low 3.4-5.0 [facility] 0.1 10 3/uL 0.0-0.7 [facility] 94 U/L 46-116 [facility] 13 U/L Low 15-37 [facility] 24.0 [facility] 0.02 10 3/uL 0.00-0.03 [facility] 24.0 mg/dL High 7.0-18.0 [facility] 0.3 % 0.0-0.5 [facility] 8.9 mg/dL 8.5-10.1 [facility] 101 mmol/L 98-107 [facility] 29.4 mmol/L 21.0-32.0 [facility] 1.00 mg/dL 0.55-1.02 [facility] >60 >=60 [facility] 167 mg/dL High 74-106 [facility] 3.4 mmol/L Low 3.5-5.1 [facility] 136 mmol/L 136-145 [facility] 0.9 mg/dL 0.2-1.0 [facility] 6.9 g/dL 6.4-8.2 [facility] Platelet mean volume Auto (B ld) [Entitic vol]on 06-10-2024 Platelet mean volume (Bld) [Entitic vol] 11.2 fL 9.5-13.5 [facility] Platelets Auto (Bld) [#/Vol] on 06-10-2024 Platelets (Bld) [#/Vol] 189 10 3/uL 150-450 [facility] RBC Auto (Bld) [#/Vol]on RBC (Bld) [#/Vol] 4.06 10 6/uL Low 4.20-5.40 [facility] Serum or plasma albumin/glob ulin mass ratioon 06-10-2024 Albumin/Globulin [Mass ratio] 0.5 {ratio} [facility] Serum or plasma anion gap de terminationon 06-10-2024 Anion gap [Moles/Vol] 9.0 mmol/L [facility] Basophils Auto (Bld) [#/Vol] on 06-09-2024 Basophils (Bld) [#/Vol] 0.1 10 3/uL 0.0-0.1 [facility] Basophils/100 WBC Auto (Bld) on 06-09-2024 Basophils/100 WBC (Bld) 1.0 % 0.2-2.0 [facility] Eosinophils/100 WBC Auto (Bl d)on 06-09-2024 Eosinophils/100 WBC (Bld) 1.5 % 0.9-7.0 [facility] Erythrocyte distribution wid th Auto (RBC) [Ratio]on 06-09-2024 Erythrocyte distribution width (RBC) [Ratio] 14.8 % 11.0-15.0 [facility] Estimated glomerular filtrat ion rate (GFR) non- Americanon 06-09-2024 GFR/1.73 sq M.predicted among non-blacks MDRD (S/P/Bld) [Vol rate/Area] mL/min/{1.73_m2} >=60 [facility] Fibrin D-dimer [Presence] in Platelet poor plasma by Latex agglutinationon 07-29-2024 Fibrin D-dimer LA Ql (PPP) 0.39 mg/L FEU <=0.59 [facility] Comment on above: Increases in D-Dimer [...] 06-09-2024 Globulin (S) [Mass/Vol] 4.8 g/dL [facility] Hematocrit Auto (Bld) [Volum e fraction]on 06-09-2024 Hematocrit (Bld) [Volume fraction] 37.7 % 36.0-48.0 [facility] Hemoglobin [Mass/volume] in Bloodon 06-09-2024 Hemoglobin (Bld) [Mass/Vol] 12.5 g/dL 12.0-16.0 [facility] Laboratory - Chemistry and C hemistry - challengeon 06-09-2024 Albumin [Mass/Vol] 2.5 g/dL Low 3.4-5.0 [facility] ALP [Catalytic activity/Vol] 86 U/L 46-116 [facility] ALT [Catalytic activity/Vol] 18 U/L 14-59 [facility] AST [Catalytic activity/Vol] 34 U/L 15-37 [facility] Bilirubin [Mass/Vol] 0.8 mg/dL 0.2-1.0 [facility] Calcium [Mass/Vol] 8.6 mg/dL 8.5-10.1 [facility] Chloride [Moles/Vol] 103 mmol/L 98-107 [facility] CO2 [Moles/Vol] 27.1 mmol/L 21.0-32.0 [facility] Creatinine [Mass/Vol] 0.88 mg/dL 0.55-1.02 [facility] GFR/1.73 sq M.predicted MDRD (S/P/Bld) [Vol rate/Area] mL/min/{1.73_m2} >=60 [facility] Glucose [Mass/Vol] 142 mg/dL High 74-106 [facility] Lipase [Catalytic activity/Vol] 45.0 U/L 16.0-77.0 [facility] Natriuretic peptide B (Bld) [Mass/Vol] 3488.0 pg/mL High <=1800.0 [facility] Comment on above: RESULTS CALLED TO MAIDA MCGOWAN RN @BY Alla Kevin [id number] Potassium [Moles/Vol] 5.0 mmol/L 3.5-5.1 [facility] Protein [Mass/Vol] 7.3 g/dL 6.4-8.2 [facility] Sodium [Moles/Vol] 135 mmol/L Low 136-145 [facility] Urea nitrogen [Mass/Vol] 28.0 mg/dL High 7.0-18.0 [facility] Urea nitrogen/Creatinine [Mass ratio] 31.8 mg/mg [facility] Laboratory - Hematology and Cell countson 06-09-2024 Immature granulocytes/100 WBC (Bld) 0.3 % 0.0-0.5 [facility] Laboratory - Microbiology an d Antimicrobial susceptibilityon 06-09-2024 SARS-CoV-2 (COVID-19) RNA FERN+probe Ql (Unsp spec) Negative NEGATIVE [facility] Comment on above: This test has [...] Auto (Bld) [#/Vol] 8.9 10 3/uL 4.0-11.0 [facility] Lymphocytes Auto (Bld) [#/Vo l]on 06-09-2024 Lymphocytes (Bld) [#/Vol] 1.3 10 3/uL 1.2-3.8 [facility] Lymphocytes/100 WBC Auto (Bl d)on 06-09-2024 Lymphocytes/100 WBC (Bld) 15.1 % Low 20.5-60.0 [facility] MCH Auto (RBC) [Entitic mass ]on 06-09-2024 MCH (RBC) [Entitic mass] 30.3 pg 26.7-34.0 [facility] MCHC Auto (RBC) [Mass/Vol]on 06-09-2024 MCHC (RBC) [Mass/Vol] 33.2 g/dL 29.9-35.2 [facility] MCV Auto (RBC) [Entitic vol] on 06-09-2024 MCV (RBC) [Entitic vol] 91.5 fL 81.0-99.0 [facility] Monocytes Auto (Bld) [#/Vol] on 06-09-2024 Monocytes (Bld) [#/Vol] 0.7 10 3/uL 0.3-0.8 [facility] Monocytes/100 WBC Auto (Bld) on 06-09-2024 Monocytes/100 WBC (Bld) 7.9 % 1.7-12.0 [facility] Neutrophils Auto (Bld) [#/Vo l]on 06-09-2024 Neutrophils (Bld) [#/Vol] 6.6 10 3/uL High 1.4-6.5 [facility] Neutrophils/100 WBC Auto (Bl d)on 06-09-2024 Neutrophils/100 WBC (Bld) 74.2 % 43.0-75.0 [facility] No Panel Informationon 06-09 Negative NEGATIVE [facility] Eosinophils # (Auto) 0.1 10 3/uL 0.0-0.7 [facility] Immature Granulocyte # (Auto) 0.03 10 3/uL 0.00-0.03 [facility] Troponin I High Sensitivity 17.0 pg/mL 4.0-51.3 [facility] Comment on above: CUT-OFF POINTS HAVE [...] AND CLINICAL INFORMATION. 3488.0 pg/mL High <=1800.0 [facility] 45.0 U/L 16.0-77.0 [facility] 17.0 pg/mL 4.0-51.3 [facility] 2.5 g/dL Low 3.4-5.0 [facility] 0.1 10 3/uL 0.0-0.7 [facility] 86 U/L 46-116 [facility] 18 U/L 14-59 [facility] 34 U/L 15-37 [facility] 31.8 [facility] 0.03 10 3/uL 0.00-0.03 [facility] 28.0 mg/dL High 7.0-18.0 [facility] 0.3 % 0.0-0.5 [facility] 8.6 mg/dL 8.5-10.1 [facility] 103 mmol/L 98-107 [facility] 27.1 mmol/L 21.0-32.0 [facility] 0.88 mg/dL 0.55-1.02 [facility] >60 >=60 [facility] 142 mg/dL High 74-106 [facility] 5.0 mmol/L 3.5-5.1 [facility] 135 mmol/L Low 136-145 [facility] 0.8 mg/dL 0.2-1.0 [facility] 7.3 g/dL 6.4-8.2 [facility] Platelet mean volume Auto (B ld) [Entitic vol]on 06-09-2024 Platelet mean volume (Bld) [Entitic vol] 12.4 fL 9.5-13.5 [facility] Platelets Auto (Bld) [#/Vol] on 06-09-2024 Platelets (Bld) [#/Vol] 205 10 3/uL 150-450 [facility] RBC Auto (Bld) [#/Vol]on RBC (Bld) [#/Vol] 4.12 10 6/uL Low 4.20-5.40 [facility] Serum or plasma albumin/glob ulin mass ratioon 06-09-2024 Albumin/Globulin [Mass ratio] 0.5 {ratio} [facility] Serum or plasma anion gap de terminationon 06-09-2024 Anion gap [Moles/Vol] 9.9 mmol/L [facility] Basophils Auto (Bld) [#/Vol] on 06-01-2024 Basophils (Bld) [#/Vol] 0.1 10 3/uL 0.0-0.1 [facility] Basophils/100 WBC Auto (Bld) on 06-01-2024 Basophils/100 WBC (Bld) 0.9 % 0.2-2.0 [facility] Eosinophils/100 WBC Auto (Bl d)on 06-01-2024 Eosinophils/100 WBC (Bld) 1.2 % 0.9-7.0 [facility] Erythrocyte distribution wid th Auto (RBC) [Ratio]on 06-01-2024 Erythrocyte distribution width (RBC) [Ratio] 14.1 % 11.0-15.0 [facility] Estimated glomerular filtrat ion rate (GFR) non- Americanon 06-01-2024 GFR/1.73 sq M.predicted among non-blacks MDRD (S/P/Bld) [Vol rate/Area] 47 mL/min/{1.73_m2} Low >=60 [facility] Globulin Calc (S) [Mass/Vol] on 06-01-2024 Globulin (S) [Mass/Vol] 4.4 g/dL [facility] Hematocrit Auto (Bld) [Volum e fraction]on 06-01-2024 Hematocrit (Bld) [Volume fraction] 37.6 % 36.0-48.0 [facility] Hemoglobin [Mass/volume] in Bloodon 06-01-2024 Hemoglobin (Bld) [Mass/Vol] 12.5 g/dL 12.0-16.0 [facility] Laboratory - Chemistry and C hemistry - challengeon 06-01-2024 Albumin [Mass/Vol] 2.7 g/dL Low 3.4-5.0 [facility] ALP [Catalytic activity/Vol] 87 U/L 46-116 [facility] ALT [Catalytic activity/Vol] 18 U/L 14-59 [facility] AST [Catalytic activity/Vol] 16 U/L 15-37 [facility] Bilirubin [Mass/Vol] 0.5 mg/dL 0.2-1.0 [facility] Calcium [Mass/Vol] 8.7 mg/dL 8.5-10.1 [facility] Chloride [Moles/Vol] 101 mmol/L 98-107 [facility] CO2 [Moles/Vol] 28.9 mmol/L 21.0-32.0 [facility] Creatinine [Mass/Vol] 1.12 mg/dL High 0.55-1.02 [facility] GFR/1.73 sq M.predicted MDRD (S/P/Bld) [Vol rate/Area] 57 mL/min/{1.73_m2} Low >=60 [facility] Glucose [Mass/Vol] 232 mg/dL High 74-106 [facility] Potassium [Moles/Vol] 4.1 mmol/L 3.5-5.1 [facility] Protein [Mass/Vol] 7.1 g/dL 6.4-8.2 [facility] Sodium [Moles/Vol] 137 mmol/L 136-145 [facility] Urea nitrogen [Mass/Vol] 23.0 mg/dL High 7.0-18.0 [facility] Urea nitrogen/Creatinine [Mass ratio] 20.5 mg/mg [facility] Laboratory - Hematology and Cell countson 07-21-2024 Immature granulocytes/100 WBC (Bld) 0.2 % 0.0-0.5 [facility] Leukocytes [#/volume] correc gali for nucleated erythrocytes in Blood by Automated counon 06-01-2024 WBC corrected for nucl RBC Auto (Bld) [#/Vol] 9.0 10 3/uL 4.0-11.0 [facility] Lymphocytes Auto (Bld) [#/Vo l]on 06-01-2024 Lymphocytes (Bld) [#/Vol] 1.4 10 3/uL 1.2-3.8 [facility] Lymphocytes/100 WBC Auto (Bl d)on 06-01-2024 Lymphocytes/100 WBC (Bld) 15.9 % Low 20.5-60.0 [facility] MCH Auto (RBC) [Entitic mass ]on 06-01-2024 MCH (RBC) [Entitic mass] 29.5 pg 26.7-34.0 [facility] MCHC Auto (RBC) [Mass/Vol]on 06-01-2024 MCHC (RBC) [Mass/Vol] 33.2 g/dL 29.9-35.2 [facility] MCV Auto (RBC) [Entitic vol] on 06-01-2024 MCV (RBC) [Entitic vol] 88.7 fL 81.0-99.0 [facility] Monocytes Auto (Bld) [#/Vol] on 06-01-2024 Monocytes (Bld) [#/Vol] 0.8 10 3/uL 0.3-0.8 [facility] Monocytes/100 WBC Auto (Bld) on 06-01-2024 Monocytes/100 WBC (Bld) 8.5 % 1.7-12.0 [facility] Neutrophils Auto (Bld) [#/Vo l]on 06-01-2024 Neutrophils (Bld) [#/Vol] 6.6 10 3/uL High 1.4-6.5 [facility] Neutrophils/100 WBC Auto (Bl d)on 06-01-2024 Neutrophils/100 WBC (Bld) 73.3 % 43.0-75.0 [facility] No Panel Informationon 06-01 Eosinophils # (Auto) 0.1 10 3/uL 0.0-0.7 [facility] Immature Granulocyte # (Auto) 0.02 10 3/uL 0.00-0.03 [facility] 2.7 g/dL Low 3.4-5.0 [facility] 0.1 10 3/uL 0.0-0.7 [facility] 87 U/L 46-116 [facility] 18 U/L 14-59 [facility] 16 U/L 15-37 [facility] 20.5 [facility] 0.02 10 3/uL 0.00-0.03 [facility] 23.0 mg/dL High 7.0-18.0 [facility] 0.2 % 0.0-0.5 [facility] 8.7 mg/dL 8.5-10.1 [facility] 101 mmol/L 98-107 [facility] 28.9 mmol/L 21.0-32.0 [facility] 1.12 mg/dL High 0.55-1.02 [facility] 57 Low >=60 [facility] 232 mg/dL High 74-106 [facility] 4.1 mmol/L 3.5-5.1 [facility] 137 mmol/L 136-145 [facility] 0.5 mg/dL 0.2-1.0 [facility] 7.1 g/dL 6.4-8.2 [facility] Platelet mean volume Auto (B ld) [Entitic vol]on 06-01-2024 Platelet mean volume (Bld) [Entitic vol] 11.1 fL 9.5-13.5 [facility] Platelets Auto (Bld) [#/Vol] on 06-01-2024 Platelets (Bld) [#/Vol] 162 10 3/uL 150-450 [facility] RBC Auto (Bld) [#/Vol]on RBC (Bld) [#/Vol] 4.24 10 6/uL 4.20-5.40 [facility] Serum or plasma albumin/glob ulin mass ratioon 06-01-2024 Albumin/Globulin [Mass ratio] 0.6 {ratio} [facility] Serum or plasma anion gap de terminationon 06-01-2024 Anion gap [Moles/Vol] 11.2 mmol/L [facility] Basophils Auto (Bld) [#/Vol] on 05-26-2024 Basophils (Bld) [#/Vol] 0.1 10 3/uL 0.0-0.1 [facility] Basophils/100 WBC Auto (Bld) on 05-26-2024 Basophils/100 WBC (Bld) 1.1 % 0.2-2.0 [facility] Eosinophils/100 WBC Auto (Bl d)on 05-26-2024 Eosinophils/100 WBC (Bld) 2.1 % 0.9-7.0 [facility] Erythrocyte distribution wid th Auto (RBC) [Ratio]on 05-26-2024 Erythrocyte distribution width (RBC) [Ratio] 14.0 % 11.0-15.0 [facility] Estimated glomerular filtrat ion rate (GFR) non- Americanon 05-26-2024 GFR/1.73 sq M.predicted among non-blacks MDRD (S/P/Bld) [Vol rate/Area] 40 mL/min/{1.73_m2} Low >=60 [facility] Globulin Calc (S) [Mass/Vol] on 05-26-2024 Globulin (S) [Mass/Vol] 4.4 g/dL [facility] Hematocrit Auto (Bld) [Volum e fraction]on 05-26-2024 Hematocrit (Bld) [Volume fraction] 35.9 % Low 36.0-48.0 [facility] Hemoglobin [Mass/volume] in Bloodon 05-26-2024 Hemoglobin (Bld) [Mass/Vol] 12.0 g/dL 12.0-16.0 [facility] Laboratory - Chemistry and C hemistry - challengeon 05-26-2024 Albumin [Mass/Vol] 2.7 g/dL Low 3.4-5.0 [facility] ALP [Catalytic activity/Vol] 88 U/L 46-116 [facility] ALT [Catalytic activity/Vol] 20 U/L 14-59 [facility] AST [Catalytic activity/Vol] 12 U/L Low 15-37 [facility] Bilirubin [Mass/Vol] 0.5 mg/dL 0.2-1.0 [facility] Calcium [Mass/Vol] 8.9 mg/dL 8.5-10.1 [facility] Chloride [Moles/Vol] 104 mmol/L 98-107 [facility] CO2 [Moles/Vol] 26.7 mmol/L 21.0-32.0 [facility] Creatinine [Mass/Vol] 1.29 mg/dL High 0.55-1.02 [facility] Free T4 [Mass/Vol] 1.19 ng/dL 0.76-1.46 [facility] GFR/1.73 sq M.predicted MDRD (S/P/Bld) [Vol rate/Area] 49 mL/min/{1.73_m2} Low >=60 [facility] Glucose [Mass/Vol] 233 mg/dL High 74-106 [facility] Natriuretic peptide B (Bld) [Mass/Vol] 2687.0 pg/mL High <=1800.0 [facility] Comment on above: RESULTS CALLED TO DR Miranda HENNING IN ER BY Mira Edwards [id number] Potassium [Moles/Vol] 4.0 mmol/L 3.5-5.1 [facility] Protein [Mass/Vol] 7.1 g/dL 6.4-8.2 [facility] Sodium [Moles/Vol] 140 mmol/L 136-145 [facility] TSH Qn 4.487 m[IU]/L High 0.358-3.740 [facility] Urea nitrogen [Mass/Vol] 33.0 mg/dL High 7.0-18.0 [facility] Urea nitrogen/Creatinine [Mass ratio] 25.6 mg/mg [facility] Laboratory - Hematology and Cell countson 05-26-2024 Immature granulocytes/100 WBC (Bld) 0.1 % 0.0-0.5 [facility] Laboratory - Microbiology an d Antimicrobial susceptibilityon 05-26-2024 S. pyogenes Ag Ql (Unsp spec) Negative [facility] SARS-CoV-2 (COVID-19) RNA FERN+probe Ql (Unsp spec) Not detected NOT DETECTE [facility] Comment on above: THIS TEST IS NOT PEREZ ROVDED BY THE FDA. It has beenauthorized for use under an Emergency Use Authorization. SARS-CoV-2 (COVID-19) RNA FERN+probe Ql (Unsp spec) See comment NOT DETECTE [facility] Comment on above: COVID AG PERFORMED-- - 06/06/24 1120 ---SARS-CoV-2 FERN previously reported as: NOT DETECTEDTHIS TEST IS NOT APPROVDED BY THE FDA. It has beenauthorized for use under an Emergency Use Authorization. SARS-CoV-2 (COVID-19) RNA FERN+probe Ql (Unsp spec) Negative NEGATIVE [facility] Comment on above: This test has [...] Auto (Bld) [#/Vol] 7.3 10 3/uL 4.0-11.0 [facility] Lymphocytes Auto (Bld) [#/Vo l]on 05-26-2024 Lymphocytes (Bld) [#/Vol] 1.3 10 3/uL 1.2-3.8 [facility] Lymphocytes/100 WBC Auto (Bl d)on 05-26-2024 Lymphocytes/100 WBC (Bld) 18.4 % Low 20.5-60.0 [facility] MCH Auto (RBC) [Entitic mass ]on 05-26-2024 MCH (RBC) [Entitic mass] 30.4 pg 26.7-34.0 [facility] MCHC Auto (RBC) [Mass/Vol]on 05-26-2024 MCHC (RBC) [Mass/Vol] 33.4 g/dL 29.9-35.2 [facility] MCV Auto (RBC) [Entitic vol] on 05-26-2024 MCV (RBC) [Entitic vol] 90.9 fL 81.0-99.0 [facility] Monocytes Auto (Bld) [#/Vol] on 05-26-2024 Monocytes (Bld) [#/Vol] 0.7 10 3/uL 0.3-0.8 [facility] Monocytes/100 WBC Auto (Bld) on 05-26-2024 Monocytes/100 WBC (Bld) 9.5 % 1.7-12.0 [facility] Neutrophils Auto (Bld) [#/Vo l]on 05-26-2024 Neutrophils (Bld) [#/Vol] 5.0 10 3/uL 1.4-6.5 [facility] Neutrophils/100 WBC Auto (Bl d)on 05-26-2024 Neutrophils/100 WBC (Bld) 68.8 % 43.0-75.0 [facility] No Panel Informationon 05-26 See comment NOT DETECTE [facility] Negative [facility] Eosinophils # (Auto) 0.2 10 3/uL 0.0-0.7 [facility] Immature Granulocyte # (Auto) 0.01 10 3/uL 0.00-0.03 [facility] Monoscreen Negative NEGATIVE [facility] Troponin I High Sensitivity 14.9 pg/mL 4.0-51.3 [facility] Comment on above: CUT-OFF POINTS HAVE [...] DIAGNOSTIC AND CLINICAL INFORMATION. 1.19 ng/dL 0.76-1.46 [facility] 2687.0 pg/mL High <=1800.0 [facility] 14.9 pg/mL 4.0-51.3 [facility] 4.487 u[iU]/mL High 0.358-3.740 [facility] Negative NEGATIVE [facility] 2.7 g/dL Low 3.4-5.0 [facility] 0.2 10 3/uL 0.0-0.7 [facility] 88 U/L 46-116 [facility] 20 U/L 14-59 [facility] 12 U/L Low 15-37 [facility] 25.6 [facility] 0.01 10 3/uL 0.00-0.03 [facility] 33.0 mg/dL High 7.0-18.0 [facility] 0.1 % 0.0-0.5 [facility] 8.9 mg/dL 8.5-10.1 [facility] 104 mmol/L 98-107 [facility] 26.7 mmol/L 21.0-32.0 [facility] 1.29 mg/dL High 0.55-1.02 [facility] 49 Low >=60 [facility] 233 mg/dL High 74-106 [facility] 4.0 mmol/L 3.5-5.1 [facility] 140 mmol/L 136-145 [facility] 0.5 mg/dL 0.2-1.0 [facility] 7.1 g/dL 6.4-8.2 [facility] Platelet mean volume Auto (B ld) [Entitic vol]on 05-26-2024 Platelet mean volume (Bld) [Entitic vol] 10.6 fL 9.5-13.5 [facility] Platelets Auto (Bld) [#/Vol] on 05-26-2024 Platelets (Bld) [#/Vol] 215 10 3/uL 150-450 [facility] RBC Auto (Bld) [#/Vol]on RBC (Bld) [#/Vol] 3.95 10 6/uL Low 4.20-5.40 [facility] Serum or plasma albumin/glob ulin mass ratioon 05-26-2024 Albumin/Globulin [Mass ratio] 0.6 {ratio} [facility] Serum or plasma anion gap de terminationon 05-26-2024 Anion gap [Moles/Vol] 13.3 mmol/L [facility] ECG 12 lead ECGon 05-22-2024 ECG 12 lead ECG [facility] [place] [address] Electrocardiograph Report Signed Patient: Joe Call MR#: [id number] 0 : 1945 Acct:[id number] Age/Sex: 78 / F ADM Date: 05/22/24 Loc: ER Room: Type: [facility] ER Attending Dr: Ordering Provider: [...] Sinus bradycardia Confirmed by Daniele Jane DO ([id number]) on 05/22/2024 4:08:55 PM Referred By: Electronically Signed By: Daniele Jane DO Transcribed By: MUS Signed By Daniele Jane DO [id number] Normal [facility] 37on 05-20-2024 37 Have [...] pillows than normal or in recliner. Normal [facility] Estimated glomerular filtrat ion rate (GFR) non- Americanon 05-20-2024 GFR/1.73 sq M.predicted among non-blacks MDRD (S/P/Bld) [Vol rate/Area] 39 mL/min/{1.73_m2} Low >=60 [facility] Laboratory - Chemistry and C hemistry - challengeon 05-20-2024 Calcium [Mass/Vol] 8.8 mg/dL 8.5-10.1 [facility] Chloride [Moles/Vol] 103 mmol/L 98-107 [facility] CO2 [Moles/Vol] 24.3 mmol/L 21.0-32.0 [facility] Creatinine [Mass/Vol] 1.32 mg/dL High 0.55-1.02 [facility] GFR/1.73 sq M.predicted MDRD (S/P/Bld) [Vol rate/Area] 47 mL/min/{1.73_m2} Low >=60 [facility] Glucose [Mass/Vol] 243 mg/dL High 74-106 [facility] Potassium [Moles/Vol] 5.0 mmol/L 3.5-5.1 [facility] Sodium [Moles/Vol] 138 mmol/L 136-145 [facility] Urea nitrogen [Mass/Vol] 35.0 mg/dL High 7.0-18.0 [facility] Urea nitrogen/Creatinine [Mass ratio] 26.5 mg/mg [facility] No Panel Informationon 05-20 26.5 [facility] 35.0 mg/dL High 7.0-18.0 [facility] 8.8 mg/dL 8.5-10.1 [facility] 103 mmol/L 98-107 [facility] 24.3 mmol/L 21.0-32.0 [facility] 1.32 mg/dL High 0.55-1.02 [facility] 47 Low >=60 [facility] 243 mg/dL High 74-106 [facility] 5.0 mmol/L 3.5-5.1 [facility] 138 mmol/L 136-145 [facility] Office Visiton 05-20-2024 Follow-up visit [id number] BassemJoe Cramer 1945 F Date Provider Department Center 05/20/2024 MICHELA CHAMBERLAIN Afsaneh Kiana Family History Problem Relation Age of Onset Coronary artery disease Other Diabetes Other Polycystic kidney disease Other Family Status - Relation Status Age at Other Level of Service:[address]16 CT OFFICE/OUTPATIENT ESTABLISHED MOD MDM 30 MIN Normal [facility] Serum or plasma anion gap de terminationon 05-20-2024 Anion gap [Moles/Vol] 15.7 mmol/L [facility] Basophils Auto (Bld) [#/Vol] on 05-06-2024 Basophils (Bld) [#/Vol] 0.1 10 3/uL 0.0-0.1 [facility] Basophils/100 WBC Auto (Bld) on 05-06-2024 Basophils/100 WBC (Bld) 0.9 % 0.2-2.0 [facility] Eosinophils/100 WBC Auto (Bl d)on 05-06-2024 Eosinophils/100 WBC (Bld) 2.7 % 0.9-7.0 [facility] Erythrocyte distribution wid th Auto (RBC) [Ratio]on 05-06-2024 Erythrocyte distribution width (RBC) [Ratio] 13.5 % 11.0-15.0 [facility] Estimated glomerular filtrat ion rate (GFR) non- Americanon 05-06-2024 GFR/1.73 sq M.predicted among non-blacks MDRD (S/P/Bld) [Vol rate/Area] 32 mL/min/{1.73_m2} Low >=60 [facility] Globulin Calc (S) [Mass/Vol] on 05-06-2024 Globulin (S) [Mass/Vol] 4.3 g/dL [facility] Hematocrit Auto (Bld) [Volum e fraction]on 05-06-2024 Hematocrit (Bld) [Volume fraction] 34.6 % Low 36.0-48.0 [facility] Hemoglobin [Mass/volume] in Bloodon 05-06-2024 Hemoglobin (Bld) [Mass/Vol] 11.1 g/dL Low 12.0-16.0 [facility] Laboratory - Chemistry and C hemistry - challengeon 05-06-2024 Albumin [Mass/Vol] 2.5 g/dL Low 3.4-5.0 [facility] ALP [Catalytic activity/Vol] 75 U/L 46-116 [facility] ALT [Catalytic activity/Vol] 16 U/L 14-59 [facility] AST [Catalytic activity/Vol] 11 U/L Low 15-37 [facility] Bilirubin [Mass/Vol] 0.4 mg/dL 0.2-1.0 [facility] Calcium [Mass/Vol] 8.4 mg/dL Low 8.5-10.1 [facility] Chloride [Moles/Vol] 107 mmol/L 98-107 [facility] CO2 [Moles/Vol] 25.7 mmol/L 21.0-32.0 [facility] Creatinine [Mass/Vol] 1.58 mg/dL High 0.55-1.02 [facility] GFR/1.73 sq M.predicted MDRD (S/P/Bld) [Vol rate/Area] 38 mL/min/{1.73_m2} Low >=60 [facility] Glucose [Mass/Vol] 146 mg/dL High 74-106 [facility] Magnesium [Mass/Vol] 1.6 mg/dL Low 1.8-2.4 [facility] Natriuretic peptide B (Bld) [Mass/Vol] 2762.0 pg/mL High <=1800.0 [facility] Comment on above: RESULTS CALLED TO [employer] RN @BY Alla Venegas at 0557 Potassium [Moles/Vol] 4.1 mmol/L 3.5-5.1 [facility] Protein [Mass/Vol] 6.8 g/dL 6.4-8.2 [facility] Sodium [Moles/Vol] 141 mmol/L 136-145 [facility] Urea nitrogen [Mass/Vol] 49.0 mg/dL High 7.0-18.0 [facility] Urea nitrogen/Creatinine [Mass ratio] 31.0 mg/mg [facility] Laboratory - Hematology and Cell countson 05-06-2024 Immature granulocytes/100 WBC (Bld) 0.1 % 0.0-0.5 [facility] Leukocytes [#/volume] correc gali for nucleated erythrocytes in Blood by Automated counon 05-06-2024 WBC corrected for nucl RBC Auto (Bld) [#/Vol] 6.7 10 3/uL 4.0-11.0 [facility] Lymphocytes Auto (Bld) [#/Vo l]on 05-06-2024 Lymphocytes (Bld) [#/Vol] 1.5 10 3/uL 1.2-3.8 [facility] Lymphocytes/100 WBC Auto (Bl d)on 05-06-2024 Lymphocytes/100 WBC (Bld) 21.8 % 20.5-60.0 [facility] MCH Auto (RBC) [Entitic mass ]on 05-06-2024 MCH (RBC) [Entitic mass] 29.0 pg 26.7-34.0 [facility] MCHC Auto (RBC) [Mass/Vol]on 05-06-2024 MCHC (RBC) [Mass/Vol] 32.1 g/dL 29.9-35.2 [facility] MCV Auto (RBC) [Entitic vol] on 05-06-2024 MCV (RBC) [Entitic vol] 90.3 fL 81.0-99.0 [facility] Monocytes Auto (Bld) [#/Vol] on 05-06-2024 Monocytes (Bld) [#/Vol] 0.7 10 3/uL 0.3-0.8 [facility] Monocytes/100 WBC Auto (Bld) on 05-06-2024 Monocytes/100 WBC (Bld) 10.6 % 1.7-12.0 [facility] Neutrophils Auto (Bld) [#/Vo l]on 05-06-2024 Neutrophils (Bld) [#/Vol] 4.3 10 3/uL 1.4-6.5 [facility] Neutrophils/100 WBC Auto (Bl d)on 05-06-2024 Neutrophils/100 WBC (Bld) 63.9 % 43.0-75.0 [facility] No Panel Informationon 05-06 Eosinophils # (Auto) 0.2 10 3/uL 0.0-0.7 [facility] Immature Granulocyte # (Auto) 0.01 10 3/uL 0.00-0.03 [facility] Troponin I High Sensitivity 13.2 pg/mL 4.0-51.3 [facility] Comment on above: CUT-OFF POINTS HAVE [...] AND CLINICAL INFORMATION. 2762.0 pg/mL High <=1800.0 [facility] 13.2 pg/mL 4.0-51.3 [facility] 1.6 mg/dL Low 1.8-2.4 [facility] 2.5 g/dL Low 3.4-5.0 [facility] 0.2 10 3/uL 0.0-0.7 [facility] 75 U/L 46-116 [facility] 16 U/L 14-59 [facility] 11 U/L Low 15-37 [facility] 31.0 [facility] 0.01 10 3/uL 0.00-0.03 [facility] 49.0 mg/dL High 7.0-18.0 [facility] 0.1 % 0.0-0.5 [facility] 8.4 mg/dL Low 8.5-10.1 [facility] 107 mmol/L 98-107 [facility] 25.7 mmol/L 21.0-32.0 [facility] 1.58 mg/dL High 0.55-1.02 [facility] 38 Low >=60 [facility] 146 mg/dL High 74-106 [facility] 4.1 mmol/L 3.5-5.1 [facility] 141 mmol/L 136-145 [facility] 0.4 mg/dL 0.2-1.0 [facility] 6.8 g/dL 6.4-8.2 [facility] Platelet mean volume Auto (B ld) [Entitic vol]on 05-06-2024 Platelet mean volume (Bld) [Entitic vol] 11.3 fL 9.5-13.5 [facility] Platelets Auto (Bld) [#/Vol] on 05-06-2024 Platelets (Bld) [#/Vol] 146 10 3/uL Low 150-450 [facility] RBC Auto (Bld) [#/Vol]on RBC (Bld) [#/Vol] 3.83 10 6/uL Low 4.20-5.40 [facility] Serum or plasma albumin/glob ulin mass ratioon 05-06-2024 Albumin/Globulin [Mass ratio] 0.6 {ratio} [facility] Serum or plasma anion gap de terminationon 05-06-2024 Anion gap [Moles/Vol] 12.4 mmol/L [facility] Basophils Auto (Bld) [#/Vol] on 05-05-2024 Basophils (Bld) [#/Vol] 0.1 10 3/uL 0.0-0.1 [facility] Basophils/100 WBC Auto (Bld) on 05-05-2024 Basophils/100 WBC (Bld) 0.9 % 0.2-2.0 [facility] Eosinophils/100 WBC Auto (Bl d)on 05-05-2024 Eosinophils/100 WBC (Bld) 1.9 % 0.9-7.0 [facility] Erythrocyte distribution wid th Auto (RBC) [Ratio]on 05-05-2024 Erythrocyte distribution width (RBC) [Ratio] 13.4 % 11.0-15.0 [facility] Estimated glomerular filtrat ion rate (GFR) non- Americanon 05-05-2024 GFR/1.73 sq M.predicted among non-blacks MDRD (S/P/Bld) [Vol rate/Area] 29 mL/min/{1.73_m2} Low >=60 [facility] Globulin Calc (S) [Mass/Vol] on 06-24-2024 Globulin (S) [Mass/Vol] 4.4 g/dL [facility] Hematocrit Auto (Bld) [Volum e fraction]on 05-05-2024 Hematocrit (Bld) [Volume fraction] 33.8 % Low 36.0-48.0 [facility] Hemoglobin [Mass/volume] in Bloodon 05-05-2024 Hemoglobin (Bld) [Mass/Vol] 11.1 g/dL Low 12.0-16.0 [facility] Laboratory - Chemistry and C hemistry - challengeon 05-05-2024 Albumin [Mass/Vol] 2.6 g/dL Low 3.4-5.0 [facility] ALP [Catalytic activity/Vol] 74 U/L 46-116 [facility] ALT [Catalytic activity/Vol] 17 U/L 14-59 [facility] AST [Catalytic activity/Vol] 12 U/L Low 15-37 [facility] Bilirubin [Mass/Vol] 0.4 mg/dL 0.2-1.0 [facility] Calcium [Mass/Vol] 6.1 mg/dL Low 8.5-10.1 [facility] Chloride [Moles/Vol] 105 mmol/L 98-107 [facility] CO2 [Moles/Vol] 24.1 mmol/L 21.0-32.0 [facility] Creatinine [Mass/Vol] 1.71 mg/dL High 0.55-1.02 [facility] GFR/1.73 sq M.predicted MDRD (S/P/Bld) [Vol rate/Area] 35 mL/min/{1.73_m2} Low >=60 [facility] Glucose [Mass/Vol] 202 mg/dL High 74-106 [facility] Magnesium [Mass/Vol] 1.5 mg/dL Low 1.8-2.4 [facility] Natriuretic peptide B (Bld) [Mass/Vol] 2725.0 pg/mL High <=1800.0 [facility] [facility] Comment on above: RESULTS CALLED TO Frances Bryant (Mert)@BY BRANDON BarberT at 0547 Potassium [Moles/Vol] 5.9 mmol/L High 3.5-5.1 [facility] Protein [Mass/Vol] 7.0 g/dL 6.4-8.2 [facility] Sodium [Moles/Vol] 139 mmol/L 136-145 [facility] Urea nitrogen [Mass/Vol] 69.0 mg/dL High 7.0-18.0 [facility] Urea nitrogen/Creatinine [Mass ratio] 40.4 mg/mg [facility] Laboratory - Hematology and Cell countson 05-05-2024 Immature granulocytes/100 WBC (Bld) 0.3 % 0.0-0.5 [facility] Leukocytes [#/volume] correc gali for nucleated erythrocytes in Blood by Automated counon 05-05-2024 WBC corrected for nucl RBC Auto (Bld) [#/Vol] 6.9 10 3/uL 4.0-11.0 [facility] Lymphocytes Auto (Bld) [#/Vo l]on 05-05-2024 Lymphocytes (Bld) [#/Vol] 1.2 10 3/uL 1.2-3.8 [facility] Lymphocytes/100 WBC Auto (Bl d)on 05-05-2024 Lymphocytes/100 WBC (Bld) 18.0 % Low 20.5-60.0 [facility] MCH Auto (RBC) [Entitic mass ]on 05-05-2024 MCH (RBC) [Entitic mass] 29.3 pg 26.7-34.0 [facility] MCHC Auto (RBC) [Mass/Vol]on 05-05-2024 MCHC (RBC) [Mass/Vol] 32.8 g/dL 29.9-35.2 [facility] MCV Auto (RBC) [Entitic vol] on 05-05-2024 MCV (RBC) [Entitic vol] 89.2 fL 81.0-99.0 [facility] Monocytes Auto (Bld) [#/Vol] on 05-05-2024 Monocytes (Bld) [#/Vol] 0.6 10 3/uL 0.3-0.8 [facility] Monocytes/100 WBC Auto (Bld) on 05-05-2024 Monocytes/100 WBC (Bld) 8.7 % 1.7-12.0 [facility] Neutrophils Auto (Bld) [#/Vo l]on 05-05-2024 Neutrophils (Bld) [#/Vol] 4.8 10 3/uL 1.4-6.5 [facility] Neutrophils/100 WBC Auto (Bl d)on 05-05-2024 Neutrophils/100 WBC (Bld) 70.2 % 43.0-75.0 [facility] No Panel Informationon 05-05 Eosinophils # (Auto) 0.1 10 3/uL 0.0-0.7 [facility] Immature Granulocyte # (Auto) 0.02 10 3/uL 0.00-0.03 [facility] Troponin I High Sensitivity 14.0 pg/mL 4.0-51.3 [facility] Comment on above: CUT-OFF POINTS HAVE BEEN ESTABLISHED BASED ON THE FOURTHIVERS DEFINITION OF MYOCARDIAL INFARCTION. THE UPPERREFERENCE LIMIT (URL) OF TROPONIN, DEFINED THE 99THPERCENTILE OF cTnI DISTRIBUTION IN A REFERENCE POPULATION,HAS BEEN CONFIRMED THE DECISION THRESHOLD FOR MIDIAGNOSIS.99TH PERCENTILE = 51.4 PG/MLNOTE: HIGH-SENSITIVITY TROPONIN ASSAY IS NOT INTENDED TO BEUSED IN ISOLATION BUT SHOULD BE INTERPRETED IN CONJUNCTIONWITH OTHER DIAGNOSTIC AND CLINICAL INFORMATION. 2725.0 pg/mL High <=1800.0 [facility] 14.0 pg/mL 4.0-51.3 [facility] 1.5 mg/dL Low 1.8-2.4 [facility] 2.6 g/dL Low 3.4-5.0 [facility] 0.1 10 3/uL 0.0-0.7 [facility] 74 U/L 46-116 [facility] 17 U/L 14-59 [facility] 12 U/L Low 15-37 [facility] 40.4 [facility] 0.02 10 3/uL 0.00-0.03 [facility] 69.0 mg/dL High 7.0-18.0 [facility] 0.3 % 0.0-0.5 [facility] 6.1 mg/dL Low 8.5-10.1 [facility] 105 mmol/L 98-107 [facility] 24.1 mmol/L 21.0-32.0 [facility] 1.71 mg/dL High 0.55-1.02 [facility] 35 Low >=60 [facility] 202 mg/dL High 74-106 [facility] 5.9 mmol/L High 3.5-5.1 [facility] 139 mmol/L 136-145 [facility] 0.4 mg/dL 0.2-1.0 [facility] 7.0 g/dL 6.4-8.2 [facility] Platelet mean volume Auto (B ld) [Entitic vol]on 05-05-2024 Platelet mean volume (Bld) [Entitic vol] 11.8 fL 9.5-13.5 [facility] Platelets Auto (Bld) [#/Vol] on 05-05-2024 Platelets (Bld) [#/Vol] 173 10 3/uL 150-450 [facility] RBC Auto (Bld) [#/Vol]on RBC (Bld) [#/Vol] 3.79 10 6/uL Low 4.20-5.40 [facility] Serum or plasma albumin/glob ulin mass ratioon 05-05-2024 Albumin/Globulin [Mass ratio] 0.6 {ratio} [facility] Serum or plasma anion gap de terminationon 05-05-2024 Anion gap [Moles/Vol] 15.8 [facility] Basophils Auto (Bld) [#/Vol] on 05-04-2024 Basophils (Bld) [#/Vol] 0.1 10 3/uL 0.0-0.1 [facility] Basophils/100 WBC Auto (Bld) on 05-04-2024 Basophils/100 WBC (Bld) 0.9 % 0.2-2.0 [facility] Eosinophils/100 WBC Auto (Bl d)on 05-04-2024 Eosinophils/100 WBC (Bld) 1.7 % 0.9-7.0 [facility] Erythrocyte distribution wid th Auto (RBC) [Ratio]on 05-04-2024 Erythrocyte distribution width (RBC) [Ratio] 13.6 % 11.0-15.0 [facility] Estimated glomerular filtrat ion rate (GFR) non- Americanon 05-04-2024 GFR/1.73 sq M.predicted among non-blacks MDRD (S/P/Bld) [Vol rate/Area] 21 mL/min/{1.73_m2} Low >=60 [facility] Globulin Calc (S) [Mass/Vol] on 05-04-2024 Globulin (S) [Mass/Vol] 4.9 g/dL [facility] Hematocrit Auto (Bld) [Volum e fraction]on 05-04-2024 Hematocrit (Bld) [Volume fraction] 37.6 % 36.0-48.0 [facility] Hemoglobin [Mass/volume] in Bloodon 05-04-2024 Hemoglobin (Bld) [Mass/Vol] 12.0 g/dL 12.0-16.0 [facility] Laboratory - Chemistry and C hemistry - challengeon 05-04-2024 Bilirubin Ql (U) Negative NEGATIVE [facility] Glucose (U) [Mass/Vol] 250 mg/dL Abnormal NEGATIVE [facility] Ketones Ql (U) Negative NEGATIVE [facility] pH (U) 6.0 [pH] 5.0-9.0 [facility] Specific gravity (U) [Rel density] 1.015 1.005-1.025 [facility] Urobilinogen Qn (U) 0.2 {Meka'U}/dL 0.2-1.0 [facility] Albumin [Mass/Vol] 2.8 g/dL Low 3.4-5.0 [facility] ALP [Catalytic activity/Vol] 86 U/L 46-116 [facility] ALT [Catalytic activity/Vol] 16 U/L 14-59 [facility] Ammonia (P) [Moles/Vol] 12 umol/L 11-32 [facility] AST [Catalytic activity/Vol] 8 U/L Low 15-37 [facility] Bilirubin [Mass/Vol] 0.4 mg/dL 0.2-1.0 [facility] Calcium [Mass/Vol] 8.8 mg/dL 8.5-10.1 [facility] Chloride [Moles/Vol] 101 mmol/L 98-107 [facility] CO2 [Moles/Vol] 22.4 mmol/L 21.0-32.0 [facility] Creatinine [Mass/Vol] 2.24 mg/dL High 0.55-1.02 [facility] GFR/1.73 sq M.predicted MDRD (S/P/Bld) [Vol rate/Area] 26 mL/min/{1.73_m2} Low >=60 [facility] Glucose [Mass/Vol] 369 mg/dL High 74-106 [facility] Lactate [Moles/Vol] 1.2 mmol/L 0.4-2.0 [facility] Magnesium [Mass/Vol] 1.7 mg/dL Low 1.8-2.4 [facility] Natriuretic peptide B (Bld) [Mass/Vol] 2342.0 pg/mL High <=1800.0 [facility] Comment on above: RESULTS CALLED TO RENETTA Renteria RN @BY Andrea Long MLTat 1126 Potassium [Moles/Vol] 5.6 mmol/L High 3.5-5.1 [facility] Protein [Mass/Vol] 7.7 g/dL 6.4-8.2 [facility] Sodium [Moles/Vol] 134 mmol/L Low 136-145 [facility] T4 [Mass/Vol] 11.80 ug/dL 4.80-13.90 [facility] TSH Qn 0.933 m[IU]/L 0.358-3.740 [facility] Urea nitrogen [Mass/Vol] 86.0 mg/dL High 7.0-18.0 [facility] Comment on above: RESULTS CALLED TO RENETTA Renteria RN @BY Andrea Long MLTat 1126 Urea nitrogen/Creatinine [Mass ratio] 38.4 mg/mg [facility] Laboratory - Hematology and Cell countson 05-04-2024 Immature granulocytes/100 WBC (Bld) 0.3 % 0.0-0.5 [facility] Laboratory - Microbiology an d Antimicrobial susceptibilityOrdered By: Carl Morales on 05-04-2024 Bacteria identified Cx Nom (U) [facility] Laboratory - Specimen inform ationon 05-04-2024 Appearance (U) SLIGHTLY CLOUDY Abnormal CLEAR [facility] Color (U) YELLOW YELLOW [facility] Laboratory - Urinalysison Hyaline casts LM Ql (Urine sed) RARE [facility] Leukocyte esterase Test strip Ql (U) Negative NEGATIVE [facility] Mucus Ql (Urine sed) NONE SEEN NONE SEEN [facility] Nitrite Ql (U) Negative NEGATIVE [facility] Protein Ql (U) 100 mg/dL Abnormal NEG/TRACE [facility] Leukocytes [#/volume] correc gali for nucleated erythrocytes in Blood by Automated counon 05-04-2024 WBC corrected for nucl RBC Auto (Bld) [#/Vol] 6.9 10 3/uL 4.0-11.0 [facility] Lymphocytes Auto (Bld) [#/Vo l]on 05-04-2024 Lymphocytes (Bld) [#/Vol] 1.2 10 3/uL 1.2-3.8 [facility] Lymphocytes/100 WBC Auto (Bl d)on 05-04-2024 Lymphocytes/100 WBC (Bld) 17.8 % Low 20.5-60.0 [facility] MCH Auto (RBC) [Entitic mass ]on 05-04-2024 MCH (RBC) [Entitic mass] 29.3 pg 26.7-34.0 [facility] MCHC Auto (RBC) [Mass/Vol]on 05-04-2024 MCHC (RBC) [Mass/Vol] 31.9 g/dL 29.9-35.2 [facility] MCV Auto (RBC) [Entitic vol] on 05-04-2024 MCV (RBC) [Entitic vol] 91.9 fL 81.0-99.0 [facility] Monocytes Auto (Bld) [#/Vol] on 05-04-2024 Monocytes (Bld) [#/Vol] 0.7 10 3/uL 0.3-0.8 [facility] Monocytes/100 WBC Auto (Bld) on 05-04-2024 Monocytes/100 WBC (Bld) 10.4 % 1.7-12.0 [facility] Neutrophils Auto (Bld) [#/Vo l]on 05-04-2024 Neutrophils (Bld) [#/Vol] 4.8 10 3/uL 1.4-6.5 [facility] Neutrophils/100 WBC Auto (Bl d)on 05-04-2024 Neutrophils/100 WBC (Bld) 68.9 % 43.0-75.0 [facility] No Panel Informationon 05-04 Acetone Level Negative NEGATIVE [facility] Negative NEGATIVE [facility] Urine Bacteria MODERATE #/HPF Abnormal NONE SEEN [facility] Urine Culture Reflexed ALREADY ORDERED [facility] Urine Microscopic Review YES [facility] Urine Occult Blood MODERATE Abnormal NEGATIVE [facility] Urine Other Casts SEEN #/LPF Abnormal NONE SEEN [facility] Urine Other Crystals None Seen #/HPF None Seen [facility] Urine RBC 2-5 #/HPF Abnormal 0-2 [facility] Urine Squamous Epithelial Cells FEW #/LPF Abnormal NONE/RARE [facility] Urine WBC 2-5 #/HPF Abnormal NONE SEEN [facility] ALREADY ORDERED [facility] YES [facility] SEEN #/LPF Abnormal NONE SEEN [facility] Negative NEGATIVE [facility] None Seen #/HPF None Seen [facility] MODERATE Abnormal NEGATIVE [facility] MODERATE #/HPF Abnormal NONE SEEN [facility] SLIGHTLY CLOUDY Abnormal CLEAR [facility] RARE [facility] YELLOW YELLOW [facility] NONE SEEN NONE SEEN [facility] 250 mg/dL Abnormal NEGATIVE [facility] 2-5 #/HPF Abnormal NONE SEEN [facility] FEW #/LPF Abnormal NONE/RARE [facility] 6.0 5.0-9.0 [facility] 100 mg/dL Abnormal NEG/TRACE [facility] 1.015 1.005-1.025 [facility] 0.2 EU/dL 0.2-1.0 [facility] Eosinophils # (Auto) 0.1 10 3/uL 0.0-0.7 [facility] Immature Granulocyte # (Auto) 0.02 10 3/uL 0.00-0.03 [facility] Troponin I High Sensitivity 10.5 pg/mL 4.0-51.3 [facility] Comment on above: CUT-OFF POINTS HAVE [...] Partial Pressure CO2 38.5 mm[Hg] Low 40.0-52.0 [facility] Venous Blood pH 7.353 7.330-7.430 [facility] 0.933 u[iU]/mL 0.358-3.740 [facility] 11.80 ug/dL 4.80-13.90 [facility] 1.7 mg/dL Low 1.8-2.4 [facility] 2342.0 pg/mL High <=1800.0 [facility] 1.2 mmol/L 0.4-2.0 [facility] 10.5 pg/mL 4.0-51.3 [facility] 12 umol/L 11-32 [facility] 38.5 mm[Hg] Low 40.0-52.0 [facility] 7.353 7.330-7.430 [facility] 2.8 g/dL Low 3.4-5.0 [facility] 0.1 10 3/uL 0.0-0.7 [facility] 86 U/L 46-116 [facility] 16 U/L 14-59 [facility] 8 U/L Low 15-37 [facility] 38.4 [facility] 0.02 10 3/uL 0.00-0.03 [facility] 86.0 mg/dL High 7.0-18.0 [facility] 0.3 % 0.0-0.5 [facility] 8.8 mg/dL 8.5-10.1 [facility] 101 mmol/L 98-107 [facility] 22.4 mmol/L 21.0-32.0 [facility] 2.24 mg/dL High 0.55-1.02 [facility] 26 Low >=60 [facility] 369 mg/dL High 74-106 [facility] 5.6 mmol/L High 3.5-5.1 [facility] 134 mmol/L Low 136-145 [facility] 0.4 mg/dL 0.2-1.0 [facility] 7.7 g/dL 6.4-8.2 [facility] No Panel InformationOrdered By: LAMINE SINGH on 05-04-2024 Blood Culture 1 [facility] Platelet mean volume Auto (B ld) [Entitic vol]on 05-04-2024 Platelet mean volume (Bld) [Entitic vol] 11.4 fL 9.5-13.5 [facility] Platelets Auto (Bld) [#/Vol] on 05-04-2024 Platelets (Bld) [#/Vol] 160 10 3/uL 150-450 [facility] RBC Auto (Bld) [#/Vol]on RBC (Bld) [#/Vol] 4.09 10 6/uL Low 4.20-5.40 [facility] Serum or plasma albumin/glob ulin mass ratioon 05-04-2024 Albumin/Globulin [Mass ratio] 0.6 {ratio} [facility] Serum or plasma anion gap de terminationon 05-04-2024 Anion gap [Moles/Vol] 16.2 [facility] Basophils Auto (Bld) [#/Vol] on 05-01-2024 Basophils (Bld) [#/Vol] 0.1 10 3/uL 0.0-0.1 [facility] Basophils/100 WBC Auto (Bld) on 05-01-2024 Basophils/100 WBC (Bld) 0.7 % 0.2-2.0 [facility] Eosinophils/100 WBC Auto (Bl d)on 05-01-2024 Eosinophils/100 WBC (Bld) 2.3 % 0.9-7.0 [facility] Erythrocyte distribution wid th Auto (RBC) [Ratio]on 05-01-2024 Erythrocyte distribution width (RBC) [Ratio] 13.6 % 11.0-15.0 [facility] Estimated glomerular filtrat ion rate (GFR) non- Americanon 05-01-2024 GFR/1.73 sq M.predicted among non-blacks MDRD (S/P/Bld) [Vol rate/Area] 22 mL/min/{1.73_m2} Low >=60 [facility] Globulin Calc (S) [Mass/Vol] on 05-01-2024 Globulin (S) [Mass/Vol] 4.4 g/dL [facility] Hematocrit Auto (Bld) [Volum e fraction]on 05-01-2024 Hematocrit (Bld) [Volume fraction] 37.5 % 36.0-48.0 [facility] Hemoglobin [Mass/volume] in Bloodon 05-01-2024 Hemoglobin (Bld) [Mass/Vol] 12.1 g/dL 12.0-16.0 [facility] Laboratory - Chemistry and C hemistry - challengeon 05-01-2024 Calcium [Mass/Vol] 9.2 mg/dL 8.5-10.1 [facility] Chloride [Moles/Vol] 104 mmol/L 98-107 [facility] CO2 [Moles/Vol] 23.2 mmol/L 21.0-32.0 [facility] Creatinine [Mass/Vol] 2.14 mg/dL High 0.55-1.02 [facility] GFR/1.73 sq M.predicted MDRD (S/P/Bld) [Vol rate/Area] 27 mL/min/{1.73_m2} Low >=60 [facility] Glucose [Mass/Vol] 220 mg/dL High 74-106 [facility] Potassium [Moles/Vol] 5.3 mmol/L High 3.5-5.1 [facility] Sodium [Moles/Vol] 134 mmol/L Low 136-145 [facility] Urea nitrogen [Mass/Vol] 87.0 mg/dL High 7.0-18.0 [facility] Comment on above: RESULTS CALLED TO Klaus Michaels RN @BY Sury French [phone] Urea nitrogen/Creatinine [Mass ratio] 40.7 mg/mg [facility] Albumin [Mass/Vol] 2.8 g/dL Low 3.4-5.0 [facility] ALP [Catalytic activity/Vol] 80 U/L 46-116 [facility] ALT [Catalytic activity/Vol] 16 U/L 14-59 [facility] AST [Catalytic activity/Vol] 11 U/L Low 15-37 [facility] Bilirubin [Mass/Vol] 0.4 mg/dL 0.2-1.0 [facility] Natriuretic peptide B (Bld) [Mass/Vol] 1624.0 pg/mL <=1800.0 [facility] Protein [Mass/Vol] 7.2 g/dL 6.4-8.2 [facility] Laboratory - Hematology and Cell countson 05-01-2024 Immature granulocytes/100 WBC (Bld) 0.1 % 0.0-0.5 [facility] Leukocytes [#/volume] correc gali for nucleated erythrocytes in Blood by Automated counon 05-01-2024 WBC corrected for nucl RBC Auto (Bld) [#/Vol] 7.4 10 3/uL 4.0-11.0 [facility] Lymphocytes Auto (Bld) [#/Vo l]on 05-01-2024 Lymphocytes (Bld) [#/Vol] 2.2 10 3/uL 1.2-3.8 [facility] Lymphocytes/100 WBC Auto (Bl d)on 05-01-2024 Lymphocytes/100 WBC (Bld) 29.4 % 20.5-60.0 [facility] MCH Auto (RBC) [Entitic mass ]on 05-01-2024 MCH (RBC) [Entitic mass] 29.2 pg 26.7-34.0 [facility] MCHC Auto (RBC) [Mass/Vol]on 05-01-2024 MCHC (RBC) [Mass/Vol] 32.3 g/dL 29.9-35.2 [facility] MCV Auto (RBC) [Entitic vol] on 05-01-2024 MCV (RBC) [Entitic vol] 90.4 fL 81.0-99.0 [facility] Monocytes Auto (Bld) [#/Vol] on 05-01-2024 Monocytes (Bld) [#/Vol] 0.9 10 3/uL High 0.3-0.8 [facility] Monocytes/100 WBC Auto (Bld) on 05-01-2024 Monocytes/100 WBC (Bld) 11.5 % 1.7-12.0 [facility] Neutrophils Auto (Bld) [#/Vo l]on 05-01-2024 Neutrophils (Bld) [#/Vol] 4.1 10 3/uL 1.4-6.5 [facility] Neutrophils/100 WBC Auto (Bl d)on 05-01-2024 Neutrophils/100 WBC (Bld) 56.0 % 43.0-75.0 [facility] No Panel Informationon 05-01 40.7 [facility] 87.0 mg/dL High 7.0-18.0 [facility] 9.2 mg/dL 8.5-10.1 [facility] 104 mmol/L 98-107 [facility] 23.2 mmol/L 21.0-32.0 [facility] 2.14 mg/dL High 0.55-1.02 [facility] 27 Low >=60 [facility] 220 mg/dL High 74-106 [facility] 5.3 mmol/L High 3.5-5.1 [facility] 134 mmol/L Low 136-145 [facility] Eosinophils # (Auto) 0.2 10 3/uL 0.0-0.7 [facility]ir [facility] Immature Granulocyte # (Auto) 0.01 10 3/uL 0.00-0.03 [facility] 1624.0 pg/mL <=1800.0 [facility] 2.8 g/dL Low 3.4-5.0 [facility] 0.2 10 3/uL 0.0-0.7 [facility] 80 U/L 46-116 [facility] 16 U/L 14-59 [facility] 11 U/L Low 15-37 [facility] 0.01 10 3/uL 0.00-0.03 [facility] 0.1 % 0.0-0.5 [facility] 0.4 mg/dL 0.2-1.0 [facility] 7.2 g/dL 6.4-8.2 [facility] Platelet mean volume Auto (B ld) [Entitic vol]on 05-01-2024 Platelet mean volume (Bld) [Entitic vol] 11.6 fL 9.5-13.5 [facility] Platelets Auto (Bld) [#/Vol] on 05-01-2024 Platelets (Bld) [#/Vol] 151 10 3/uL 150-450 [facility] RBC Auto (Bld) [#/Vol]on RBC (Bld) [#/Vol] 4.15 10 6/uL Low 4.20-5.40 [facility] Serum or plasma albumin/glob ulin mass ratioon 05-01-2024 Albumin/Globulin [Mass ratio] 0.6 {ratio} [facility] Serum or plasma anion gap de terminationon 05-01-2024 Anion gap [Moles/Vol] 12.1 mmol/L Fi [facility] Basophils Auto (Bld) [#/Vol] on 04-30-2024 Basophils (Bld) [#/Vol] 0.1 10 3/uL 0.0-0.1 [facility] Basophils/100 WBC Auto (Bld) on 04-30-2024 Basophils/100 WBC (Bld) 0.9 % 0.2-2.0 [facility] Eosinophils/100 WBC Auto (Bl d)on 04-30-2024 Eosinophils/100 WBC (Bld) 2.4 % 0.9-7.0 [facility] Erythrocyte distribution wid th Auto (RBC) [Ratio]on 04-30-2024 Erythrocyte distribution width (RBC) [Ratio] 13.5 % 11.0-15.0 [facility] Estimated glomerular filtrat ion rate (GFR) non- Americanon 04-30-2024 GFR/1.73 sq M.predicted among non-blacks MDRD (S/P/Bld) [Vol rate/Area] 15 mL/min/{1.73_m2} Low >=60 [facility] Fibrin D-dimer [Presence] in Platelet poor plasma by Latex agglutinationon 04-30-2024 Fibrin D-dimer LA Ql (PPP) 0.24 mg/L FEU <=0.59 [facility] Comment on above: Increases in D-Dimer [...] Hematocrit (Bld) [Volume fraction] 38.6 % 36.0-48.0 [facility] Hemoglobin [Mass/volume] in Bloodon 04-30-2024 Hemoglobin (Bld) [Mass/Vol] 12.5 g/dL 12.0-16.0 [facility] Laboratory - Chemistry and C hemistry - challengeon 04-30-2024 Calcium [Mass/Vol] 9.0 mg/dL 8.5-10.1 [facility] Chloride [Moles/Vol] 100 mmol/L 98-107 [facility] CO2 [Moles/Vol] 24.4 mmol/L 21.0-32.0 [facility] Creatinine [Mass/Vol] 3.02 mg/dL High 0.55-1.02 [facility] GFR/1.73 sq M.predicted MDRD (S/P/Bld) [Vol rate/Area] 18 mL/min/{1.73_m2} Low >=60 [facility] Glucose [Mass/Vol] 271 mg/dL High 74-106 [facility] Magnesium [Mass/Vol] 1.8 mg/dL 1.8-2.4 [facility] Natriuretic peptide B (Bld) [Mass/Vol] 1485.0 pg/mL <=1800.0 [facility] Potassium [Moles/Vol] 5.3 mmol/L High 3.5-5.1 [facility] Sodium [Moles/Vol] 133 mmol/L Low 136-145 [facility] Urea nitrogen [Mass/Vol] 99.0 mg/dL High 7.0-18.0 [facility] Comment on above: RESULTS CALLED TO Yoel WADE)@BY Franchesca Huynh MLT at 0603 Urea nitrogen/Creatinine [Mass ratio] 32.8 mg/mg [facility] Laboratory - Hematology and Cell countson 04-30-2024 Immature granulocytes/100 WBC (Bld) 0.1 % 0.0-0.5 [facility] Leukocytes [#/volume] correc gali for nucleated erythrocytes in Blood by Automated counon 04-30-2024 WBC corrected for nucl RBC Auto (Bld) [#/Vol] 7.5 10 3/uL 4.0-11.0 [facility] Lymphocytes Auto (Bld) [#/Vo l]on 04-30-2024 Lymphocytes (Bld) [#/Vol] 2.1 10 3/uL 1.2-3.8 [facility] Lymphocytes/100 WBC Auto (Bl d)on 04-30-2024 Lymphocytes/100 WBC (Bld) 27.8 % 20.5-60.0 [facility] MCH Auto (RBC) [Entitic mass ]on 04-30-2024 MCH (RBC) [Entitic mass] 29.6 pg 26.7-34.0 [facility] MCHC Auto (RBC) [Mass/Vol]on 04-30-2024 MCHC (RBC) [Mass/Vol] 32.4 g/dL 29.9-35.2 [facility] MCV Auto (RBC) [Entitic vol] on 04-30-2024 MCV (RBC) [Entitic vol] 91.5 fL 81.0-99.0 [facility] Monocytes Auto (Bld) [#/Vol] on 04-30-2024 Monocytes (Bld) [#/Vol] 0.8 10 3/uL 0.3-0.8 [facility] Monocytes/100 WBC Auto (Bld) on 04-30-2024 Monocytes/100 WBC (Bld) 10.0 % 1.7-12.0 [facility] Neutrophils Auto (Bld) [#/Vo l]on 04-30-2024 Neutrophils (Bld) [#/Vol] 4.4 10 3/uL 1.4-6.5 [facility] Neutrophils/100 WBC Auto (Bl d)on 04-30-2024 Neutrophils/100 WBC (Bld) 58.8 % 43.0-75.0 [facility] No Panel Informationon 04-30 Troponin I High Sensitivity 12.6 pg/mL 4.0-51.3 [facility] Comment on above: CUT-OFF POINTS HAVE [...] DIAGNOSTIC AND CLINICAL INFORMATION. 1.8 mg/dL 1.8-2.4 [facility] 1485.0 pg/mL <=1800.0 [facility] 12.6 pg/mL 4.0-51.3 [facility] 32.8 [facility] 99.0 mg/dL High 7.0-18.0 [facility] 9.0 mg/dL 8.5-10.1 [facility] 100 mmol/L 98-107 [facility] 24.4 mmol/L 21.0-32.0 [facility] 3.02 mg/dL High 0.55-1.02 [facility] 18 Low >=60 [facility] 271 mg/dL High 74-106 [facility] 5.3 mmol/L High 3.5-5.1 [facility] 133 mmol/L Low 136-145 [facility] Eosinophils # (Auto) 0.2 10 3/uL 0.0-0.7 [facility] Immature Granulocyte # (Auto) 0.01 10 3/uL 0.00-0.03 [facility] 0.2 10 3/uL 0.0-0.7 [facility] 0.01 10 3/uL 0.00-0.03 [facility] 0.1 % 0.0-0.5 [facility] Platelet mean volume Auto (B ld) [Entitic vol]on 04-30-2024 Platelet mean volume (Bld) [Entitic vol] 12.2 fL 9.5-13.5 [facility] Platelets Auto (Bld) [#/Vol] on 04-30-2024 Platelets (Bld) [#/Vol] 221 10 3/uL 150-450 [facility] RBC Auto (Bld) [#/Vol]on RBC (Bld) [#/Vol] 4.22 10 6/uL 4.20-5.40 [facility] Serum or plasma anion gap de terminationon 04-30-2024 Anion gap [Moles/Vol] 13.9 mmol/L [facility] Basophils Auto (Bld) [#/Vol] on 03-28-2024 Basophils (Bld) [#/Vol] 0.1 10 3/uL 0.0-0.1 [facility] Basophils/100 WBC Auto (Bld) on 03-28-2024 Basophils/100 WBC (Bld) 0.9 % 0.2-2.0 [facility] Eosinophils/100 WBC Auto (Bl d)on 03-28-2024 Eosinophils/100 WBC (Bld) 1.7 % 0.9-7.0 [facility] Erythrocyte distribution wid th Auto (RBC) [Ratio]on 03-28-2024 Erythrocyte distribution width (RBC) [Ratio] 14.2 % 11.0-15.0 [facility] Estimated glomerular filtrat ion rate (GFR) non- Americanon 03-28-2024 GFR/1.73 sq M.predicted among non-blacks MDRD (S/P/Bld) [Vol rate/Area] 39 mL/min/{1.73_m2} Low >=60 [facility] Globulin Calc (S) [Mass/Vol] on 03-28-2024 Globulin (S) [Mass/Vol] 4.8 g/dL [facility] Hematocrit Auto (Bld) [Volum e fraction]on 03-28-2024 Hematocrit (Bld) [Volume fraction] 40.0 % 36.0-48.0 [facility] Hemoglobin [Mass/volume] in Bloodon 03-28-2024 Hemoglobin (Bld) [Mass/Vol] 12.6 g/dL 12.0-16.0 [facility] Laboratory - Chemistry and C hemistry - challengeon 03-28-2024 Albumin [Mass/Vol] 2.5 g/dL Low 3.4-5.0 [facility] ALP [Catalytic activity/Vol] 93 U/L 46-116 [facility] ALT [Catalytic activity/Vol] 9 U/L Low 14-59 [facility] AST [Catalytic activity/Vol] 10 U/L Low 15-37 [facility] Bilirubin [Mass/Vol] 0.9 mg/dL 0.2-1.0 [facility] Calcium [Mass/Vol] 8.5 mg/dL 8.5-10.1 [facility] Chloride [Moles/Vol] 96 mmol/L Low 98-107 [facility] CO2 [Moles/Vol] 27.1 mmol/L 21.0-32.0 [facility] Creatinine [Mass/Vol] 1.33 mg/dL High 0.55-1.02 [facility] GFR/1.73 sq M.predicted MDRD (S/P/Bld) [Vol rate/Area] 47 mL/min/{1.73_m2} Low >=60 [facility] Glucose [Mass/Vol] 261 mg/dL High 74-106 [facility] Magnesium [Mass/Vol] 1.8 mg/dL 1.8-2.4 [facility] Natriuretic peptide B (Bld) [Mass/Vol] 3338.0 pg/mL High <=1800.0 [facility] Comment on above: RESULTS CALLED TO Claritza Sellers (RN)@BY Franchesca HuynhTIP LENGTH CHECKER at 0554 Potassium [Moles/Vol] 3.8 mmol/L 3.5-5.1 [facility] Protein [Mass/Vol] 7.3 g/dL 6.4-8.2 [facility] Sodium [Moles/Vol] 133 mmol/L Low 136-145 [facility] Urea nitrogen [Mass/Vol] 36.0 mg/dL High 7.0-18.0 [facility] Urea nitrogen/Creatinine [Mass ratio] 27.1 mg/mg [facility] Laboratory - Hematology and Cell countson 03-28-2024 Immature granulocytes/100 WBC (Bld) 0.4 % 0.0-0.5 [facility] Leukocytes [#/volume] correc gali for nucleated erythrocytes in Blood by Automated counon 03-28-2024 WBC corrected for nucl RBC Auto (Bld) [#/Vol] 8.4 10 3/uL 4.0-11.0 [facility] Lymphocytes Auto (Bld) [#/Vo l]on 03-28-2024 Lymphocytes (Bld) [#/Vol] 1.8 10 3/uL 1.2-3.8 [facility] Lymphocytes/100 WBC Auto (Bl d)on 03-28-2024 Lymphocytes/100 WBC (Bld) 21.4 % 20.5-60.0 [facility] MCH Auto (RBC) [Entitic mass ]on 03-28-2024 MCH (RBC) [Entitic mass] 29.0 pg 26.7-34.0 [facility] MCHC Auto (RBC) [Mass/Vol]on 03-28-2024 MCHC (RBC) [Mass/Vol] 31.5 g/dL 29.9-35.2 [facility] MCV Auto (RBC) [Entitic vol] on 03-28-2024 MCV (RBC) [Entitic vol] 92.0 fL 81.0-99.0 [facility] Monocytes Auto (Bld) [#/Vol] on 03-28-2024 Monocytes (Bld) [#/Vol] 0.8 10 3/uL 0.3-0.8 [facility] Monocytes/100 WBC Auto (Bld) on 03-28-2024 Monocytes/100 WBC (Bld) 9.7 % 1.7-12.0 [facility] Neutrophils Auto (Bld) [#/Vo l]on 03-28-2024 Neutrophils (Bld) [#/Vol] 5.6 10 3/uL 1.4-6.5 [facility] Neutrophils/100 WBC Auto (Bl d)on 03-28-2024 Neutrophils/100 WBC (Bld) 65.9 % 43.0-75.0 [facility] No Panel Informationon 03-28 Eosinophils # (Auto) 0.1 10 3/uL 0.0-0.7 [facility] Immature Granulocyte # (Auto) 0.03 10 3/uL 0.00-0.03 [facility] 3338.0 pg/mL High <=1800.0 [facility] 1.8 mg/dL 1.8-2.4 [facility] 2.5 g/dL Low 3.4-5.0 [facility] 0.1 10 3/uL 0.0-0.7 [facility] 93 U/L 46-116 [facility] 9 U/L Low 14-59 [facility] 10 U/L Low 15-37 [facility] 27.1 [facility] 0.03 10 3/uL 0.00-0.03 [facility] 36.0 mg/dL High 7.0-18.0 [facility] 0.4 % 0.0-0.5 [facility] 8.5 mg/dL 8.5-10.1 [facility] 96 mmol/L Low 98-107 [facility] 27.1 mmol/L 21.0-32.0 [facility] 1.33 mg/dL High 0.55-1.02 [facility] 47 Low >=60 [facility] 261 mg/dL High 74-106 [facility] 3.8 mmol/L 3.5-5.1 [facility] 133 mmol/L Low 136-145 [facility] 0.9 mg/dL 0.2-1.0 [facility] 7.3 g/dL 6.4-8.2 [facility] Platelet mean volume Auto (B ld) [Entitic vol]on 03-28-2024 Platelet mean volume (Bld) [Entitic vol] 10.5 fL 9.5-13.5 [facility] Platelets Auto (Bld) [#/Vol] on 03-28-2024 Platelets (Bld) [#/Vol] 197 10 3/uL 150-450 [facility] RBC Auto (Bld) [#/Vol]on RBC (Bld) [#/Vol] 4.35 10 6/uL 4.20-5.40 [facility] Serum or plasma albumin/glob ulin mass ratioon 03-28-2024 Albumin/Globulin [Mass ratio] 0.5 {ratio} [facility] Serum or plasma anion gap de terminationon 03-28-2024 Anion gap [Moles/Vol] 13.7 mmol/L [facility] Basophils Auto (Bld) [#/Vol] on 03-27-2024 Basophils (Bld) [#/Vol] 0.1 10 3/uL 0.0-0.1 [facility] Basophils/100 WBC Auto (Bld) on 03-27-2024 Basophils/100 WBC (Bld) 0.8 % 0.2-2.0 [facility] Eosinophils/100 WBC Auto (Bl d)on 03-27-2024 Eosinophils/100 WBC (Bld) 1.1 % 0.9-7.0 [facility] Erythrocyte distribution wid th Auto (RBC) [Ratio]on 03-27-2024 Erythrocyte distribution width (RBC) [Ratio] 14.2 % 11.0-15.0 [facility] Estimated glomerular filtrat ion rate (GFR) non- Americanon 03-27-2024 GFR/1.73 sq M.predicted among non-blacks MDRD (S/P/Bld) [Vol rate/Area] 44 mL/min/{1.73_m2} Low >=60 [facility] Globulin Calc (S) [Mass/Vol] on 03-27-2024 Globulin (S) [Mass/Vol] 4.6 g/dL [facility] Glucose mean value [Mass/vol ume] in Blood Estimated from glycated hemoglobinon 03-27-2024 Average glucose Estimated from glycated hemoglobin (Bld) [Mass/Vol] 275 mg/dL [facility] Hematocrit Auto (Bld) [Volum e fraction]on 03-27-2024 Hematocrit (Bld) [Volume fraction] 37.4 % 36.0-48.0 [facility] Hemoglobin [Mass/volume] in Bloodon 03-27-2024 Hemoglobin (Bld) [Mass/Vol] 12.1 g/dL 12.0-16.0 [facility] Laboratory - Chemistry and C hemistry - challengeon 03-27-2024 Albumin [Mass/Vol] 2.6 g/dL Low 3.4-5.0 [facility] ALP [Catalytic activity/Vol] 89 U/L 46-116 [facility] ALT [Catalytic activity/Vol] 12 U/L Low 14-59 [facility] AST [Catalytic activity/Vol] 9 U/L Low 15-37 [facility] Bilirubin [Mass/Vol] 0.9 mg/dL 0.2-1.0 [facility] Calcium [Mass/Vol] 9.1 mg/dL 8.5-10.1 [facility] Chloride [Moles/Vol] 99 mmol/L 98-107 [facility] CO2 [Moles/Vol] 28.8 mmol/L 21.0-32.0 [facility] Creatinine [Mass/Vol] 1.19 mg/dL High 0.55-1.02 [facility] GFR/1.73 sq M.predicted MDRD (S/P/Bld) [Vol rate/Area] 53 mL/min/{1.73_m2} Low >=60 [facility] Glucose [Mass/Vol] 273 mg/dL High 74-106 [facility] Magnesium [Mass/Vol] 1.7 mg/dL Low 1.8-2.4 [facility] Natriuretic peptide B (Bld) [Mass/Vol] 4572.0 pg/mL High <=1800.0 [facility] Comment on above: RESULTS CALLED TO SA RA MIGUEL RN @BY Alla Kevin [id number] Potassium [Moles/Vol] 3.6 mmol/L 3.5-5.1 [facility] Protein [Mass/Vol] 7.2 g/dL 6.4-8.2 [facility] Sodium [Moles/Vol] 135 mmol/L Low 136-145 [facility] Urea nitrogen [Mass/Vol] 34.0 mg/dL High 7.0-18.0 [facility] Urea nitrogen/Creatinine [Mass ratio] 28.6 mg/mg [facility] Laboratory - Hematology and Cell countson 03-27-2024 HbA1c (Bld) [Mass fraction] 11.2 % High 4.5-6.2 [facility] Comment on above: ADA RECOMMENDED LIMI T 4.0 - 6.0ADA THERAPEUTIC TARGET < 7.0ACTION SUGGESTED> 7.0 Immature granulocytes/100 WBC (Bld) 0.3 % 0.0-0.5 [facility] Leukocytes [#/volume] correc gali for nucleated erythrocytes in Blood by Automated counon 03-27-2024 WBC corrected for nucl RBC Auto (Bld) [#/Vol] 9.7 10 3/uL 4.0-11.0 [facility] Lymphocytes Auto (Bld) [#/Vo l]on 03-27-2024 Lymphocytes (Bld) [#/Vol] 1.3 10 3/uL 1.2-3.8 [facility] Lymphocytes/100 WBC Auto (Bl d)on 03-27-2024 Lymphocytes/100 WBC (Bld) 13.3 % Low 20.5-60.0 [facility] MCH Auto (RBC) [Entitic mass ]on 03-27-2024 MCH (RBC) [Entitic mass] 29.2 pg 26.7-34.0 [facility] MCHC Auto (RBC) [Mass/Vol]on 03-27-2024 MCHC (RBC) [Mass/Vol] 32.4 g/dL 29.9-35.2 [facility] MCV Auto (RBC) [Entitic vol] on 03-27-2024 MCV (RBC) [Entitic vol] 90.3 fL 81.0-99.0 [facility] Monocytes Auto (Bld) [#/Vol] on 03-27-2024 Monocytes (Bld) [#/Vol] 0.8 10 3/uL 0.3-0.8 [facility] Monocytes/100 WBC Auto (Bld) on 03-27-2024 Monocytes/100 WBC (Bld) 8.4 % 1.7-12.0 [facility] Neutrophils Auto (Bld) [#/Vo l]on 03-27-2024 Neutrophils (Bld) [#/Vol] 7.4 10 3/uL High 1.4-6.5 [facility] Neutrophils/100 WBC Auto (Bl d)on 03-27-2024 Neutrophils/100 WBC (Bld) 76.1 % High 43.0-75.0 [facility] No Panel Informationon 03-27 Eosinophils # (Auto) 0.1 10 3/uL 0.0-0.7 [facility] Immature Granulocyte # (Auto) 0.03 10 3/uL 0.00-0.03 [facility] 4572.0 pg/mL High <=1800.0 [facility] 1.7 mg/dL Low 1.8-2.4 [facility] 11.2 % High 4.5-6.2 [facility] 2.6 g/dL Low 3.4-5.0 [facility] 0.1 10 3/uL 0.0-0.7 [facility] 89 U/L 46-116 [facility] 12 U/L Low 14-59 [facility] 9 U/L Low 15-37 [facility] 28.6 [facility] 0.03 10 3/uL 0.00-0.03 [facility] 34.0 mg/dL High 7.0-18.0 [facility] 0.3 % 0.0-0.5 [facility] 9.1 mg/dL 8.5-10.1 [facility] 99 mmol/L 98-107 [facility] 28.8 mmol/L 21.0-32.0 [facility] 1.19 mg/dL High 0.55-1.02 [facility] 53 Low >=60 [facility] 273 mg/dL High 74-106 [facility] 3.6 mmol/L 3.5-5.1 [facility] 135 mmol/L Low 136-145 [facility] 0.9 mg/dL 0.2-1.0 [facility] 7.2 g/dL 6.4-8.2 [facility] Platelet mean volume Auto (B ld) [Entitic vol]on 03-27-2024 Platelet mean volume (Bld) [Entitic vol] 10.6 fL 9.5-13.5 [facility] Platelets Auto (Bld) [#/Vol] on 03-27-2024 Platelets (Bld) [#/Vol] 204 10 3/uL 150-450 [facility] RBC Auto (Bld) [#/Vol]on RBC (Bld) [#/Vol] 4.14 10 6/uL Low 4.20-5.40 [facility] Serum or plasma albumin/glob ulin mass ratioon 03-27-2024 Albumin/Globulin [Mass ratio] 0.6 {ratio} [facility] Serum or plasma anion gap de terminationon 03-27-2024 Anion gap [Moles/Vol] 10.8 mmol/L [facility] Basophils Auto (Bld) [#/Vol] on 03-26-2024 Basophils (Bld) [#/Vol] 0.1 10 3/uL 0.0-0.1 [facility] Basophils/100 WBC Auto (Bld) on 03-26-2024 Basophils/100 WBC (Bld) 0.8 % 0.2-2.0 [facility] Eosinophils/100 WBC Auto (Bl d)on 03-26-2024 Eosinophils/100 WBC (Bld) 1.2 % 0.9-7.0 [facility] Erythrocyte distribution wid th Auto (RBC) [Ratio]on 03-26-2024 Erythrocyte distribution width (RBC) [Ratio] 14.5 % 11.0-15.0 [facility] Estimated glomerular filtrat ion rate (GFR) non- Americanon 03-26-2024 GFR/1.73 sq M.predicted among non-blacks MDRD (S/P/Bld) [Vol rate/Area] 46 mL/min/{1.73_m2} Low >=60 [facility] Glucose mean value [Mass/vol ume] in Blood Estimated from glycated hemoglobinon 03-26-2024 Average glucose Estimated from glycated hemoglobin (Bld) [Mass/Vol] 275 mg/dL [facility] Hematocrit Auto (Bld) [Volum e fraction]on 03-26-2024 Hematocrit (Bld) [Volume fraction] 40.1 % 36.0-48.0 [facility] Hemoglobin [Mass/volume] in Bloodon 03-26-2024 Hemoglobin (Bld) [Mass/Vol] 12.7 g/dL 12.0-16.0 [facility] Laboratory - Chemistry and C hemistry - challengeon 03-26-2024 Calcium [Mass/Vol] 9.1 mg/dL 8.5-10.1 [facility] Chloride [Moles/Vol] 102 mmol/L 98-107 [facility] CO2 [Moles/Vol] 28.5 mmol/L 21.0-32.0 [facility] Creatinine [Mass/Vol] 1.14 mg/dL High 0.55-1.02 [facility] Free T4 [Mass/Vol] 1.29 ng/dL 0.76-1.46 [facility] GFR/1.73 sq M.predicted MDRD (S/P/Bld) [Vol rate/Area] 56 mL/min/{1.73_m2} Low >=60 [facility] Glucose [Mass/Vol] 246 mg/dL High 74-106 [facility] Natriuretic peptide B (Bld) [Mass/Vol] 2890.0 pg/mL High <=1800.0 [facility] Comment on above: RESULTS CALLED TO YOEL ROBIN RN @BY Alla Kunz 0556 Potassium [Moles/Vol] 4.3 mmol/L 3.5-5.1 [facility] Sodium [Moles/Vol] 136 mmol/L 136-145 [facility] TSH Qn 6.001 m[IU]/L High 0.358-3.740 [facility] Urea nitrogen [Mass/Vol] 35.0 mg/dL High 7.0-18.0 [facility] Urea nitrogen/Creatinine [Mass ratio] 30.7 mg/mg [facility] Laboratory - Hematology and Cell countson 03-26-2024 HbA1c (Bld) [Mass fraction] 11.2 % High 4.5-6.2 [facility] Comment on above: ADA RECOMMENDED LIMI T 4.0 - 6.0ADA THERAPEUTIC TARGET < 7.0ACTION SUGGESTED> 7.0 Immature granulocytes/100 WBC (Bld) 0.2 % 0.0-0.5 [facility] Leukocytes [#/volume] correc gali for nucleated erythrocytes in Blood by Automated counon 03-26-2024 WBC corrected for nucl RBC Auto (Bld) [#/Vol] 8.3 10 3/uL 4.0-11.0 [facility] Lymphocytes Auto (Bld) [#/Vo l]on 03-26-2024 Lymphocytes (Bld) [#/Vol] 1.4 10 3/uL 1.2-3.8 [facility] Lymphocytes/100 WBC Auto (Bl d)on 03-26-2024 Lymphocytes/100 WBC (Bld) 16.5 % Low 20.5-60.0 [facility] MCH Auto (RBC) [Entitic mass ]on 03-26-2024 MCH (RBC) [Entitic mass] 29.1 pg 26.7-34.0 [facility] MCHC Auto (RBC) [Mass/Vol]on 03-26-2024 MCHC (RBC) [Mass/Vol] 31.7 g/dL 29.9-35.2 [facility] MCV Auto (RBC) [Entitic vol] on 03-26-2024 MCV (RBC) [Entitic vol] 92.0 fL 81.0-99.0 [facility] Monocytes Auto (Bld) [#/Vol] on 03-26-2024 Monocytes (Bld) [#/Vol] 0.7 10 3/uL 0.3-0.8 [facility] Monocytes/100 WBC Auto (Bld) on 03-26-2024 Monocytes/100 WBC (Bld) 7.9 % 1.7-12.0 [facility] Neutrophils Auto (Bld) [#/Vo l]on 03-26-2024 Neutrophils (Bld) [#/Vol] 6.1 10 3/uL 1.4-6.5 [facility] Neutrophils/100 WBC Auto (Bl d)on 03-26-2024 Neutrophils/100 WBC (Bld) 73.4 % 43.0-75.0 [facility] No Panel Informationon 03-26 Eosinophils # (Auto) 0.1 10 3/uL 0.0-0.7 [facility] Immature Granulocyte # (Auto) 0.02 10 3/uL 0.00-0.03 [facility] Troponin I High Sensitivity 12.4 pg/mL 4.0-51.3 [facility] Comment on above: CUT-OFF POINTS HAVE [...] DIAGNOSTIC AND CLINICAL INFORMATION. 1.29 ng/dL 0.76-1.46 [facility] 6.001 u[iU]/mL High 0.358-3.740 [facility] 2890.0 pg/mL High <=1800.0 [facility] 12.4 pg/mL 4.0-51.3 [facility] 11.2 % High 4.5-6.2 [facility] 30.7 [facility] 35.0 mg/dL High 7.0-18.0 [facility] 0.1 10 3/uL 0.0-0.7 [facility] 9.1 mg/dL 8.5-10.1 [facility] 102 mmol/L 98-107 [facility] 28.5 mmol/L 21.0-32.0 [facility] 1.14 mg/dL High 0.55-1.02 [facility] 0.02 10 3/uL 0.00-0.03 [facility] 56 Low >=60 [facility] 0.2 % 0.0-0.5 [facility] 246 mg/dL High 74-106 [facility] 4.3 mmol/L 3.5-5.1 [facility] 136 mmol/L 136-145 [facility] Platelet mean volume Auto (B ld) [Entitic vol]on 03-26-2024 Platelet mean volume (Bld) [Entitic vol] 10.8 fL 9.5-13.5 [facility] Platelets Auto (Bld) [#/Vol] on 03-26-2024 Platelets (Bld) [#/Vol] 225 10 3/uL 150-450 [facility] RBC Auto (Bld) [#/Vol]on RBC (Bld) [#/Vol] 4.36 10 6/uL 4.20-5.40 [facility] Serum or plasma anion gap de terminationon 03-26-2024 Anion gap [Moles/Vol] 9.8 mmol/L [facility] MR cervical spine wo conon 0 03-13-2024 MR cervical spine wo con [facility] [place] [address] MRI Report Signed Patient: Joe Call MR#: [id number] 0 : 1945 Acct:[id number] Age/Sex: 78 / F ADM Date: 03/13/24 Loc: [facility] Room: Type: [facility] Attending Dr: Eloina Hussein MD [...] M.D.03/13/2024 3:47 PM Dictation Location: [place] [address] Transcribed By: [facility] 03/13/24 1547 Dictated By: Jarred Randolph DO 03/13/24 154 Signed By: 03/13/24 1547 Normal [facility] XR pre/post mri xrayon 03-13 XR pre/post mri xray [facility] [place] [address] [place] [address] MRI Report Signed Patient: Joe Call MR#: [id number] 0 : 1945 Acct:[id number] Age/Sex: 78 / F ADM Date: 03/13/24 Loc: [facility] Room: Type: [facility] Attending Dr: Eloina Hussein MD Copies to: Eloina Mullins MD Ordering Provider: Eloina Mullins MD Date of Service: 03/13/24 MR/MR lumbar spine wo con: M54.50 ([id number]) XR/XR pre/post mri xray: M54.50 MRI Lumbar [...] M.D.03/13/2024 3:58 PM Dictation Location: [place] [address] Transcribed By: [facility] 03/13/24 1558 Dictated By: Jarred Randolph DO 03/13/24 1551 Signed By: 03/13/24 1558 Normal [facility] Office [place] 03-07-2024 Follow-up visit [id number] Joe Call 1945 F Date Provider Department Center 03/07/2024 RICA DEAN [facility] Family History Problem Relation Age of Onset Coronary artery disease Other Diabetes Other Polycystic kidney disease Other Family Status - Relation Status Age at Other Level of Service:[address] CT OFFICE/OUTPATIENT ESTABLISHED MOD MDM 30 MIN Reason for Visit and Comments: Follow-up [905563] - 6 month Normal [facility] Office [place] 08-17-2023 Follow-up visit [id number] Joe Call 1945 Date Provider Department Center 08/17/2023 [id number] SEO Family History Problem Relation Age of Onset Coronary artery disease Other Diabetes Other Polycystic kidney disease Other Family Status - Relation Status Age at Other Level of Service:[address]184 CT OFFICE/OUTPATIENT ESTABLISHED MOD MDM 30-39 MIN [facility] 36on 07-25-2023 36 Pt informed [facility] 36on 07-24-2023 37 She does not need to drink 4 bottle of water. She needs to maintain a 2 L fluid restriction. This includes all fluid not just water. In regards to sleep, I told her she would need to discuss that with her PCP. Thanks. [facility] Office [place] 07-23-2023 Follow-up visit [id number] Joe Call 1945 Provider Department [place] 07/23/2023 [id number] SEO Family History Problem Relation Age of Onset Coronary artery disease Other Diabetes Other Polycystic kidney disease Other Family Status - Relation Status Age at Other Level of Service:82867 CT OFFICE/OUTPATIENT ESTABLISHED MOD MDM 30-39 MIN [facility] GI PANEL (PCR)on 03-06-2023 Adenovirus F 40/41 Not detected Normal NOT DETECTED [facility] Comment on above: Performed By: #### P OCGLUC #### [facility] [address] [place] [address] Dr. Kasia Nath Astrovirus Not detected Normal NOT DETECTED [facility] Comment on above: Performed By: #### P OCGLUC #### [facility] [address] [place] [address] Dr. Kasia Nath C. Diff toxin A/B Detected Critically abnormal NOT DETECTED [facility] Comment on above: Performed By: #### P OCGLUC #### [facility] [address] [place] [address] Dr. Kasia Nath Campylobacter Detected Critically abnormal NOT DETECTED [facility] Comment on above: Performed By: #### P OCGLUC #### [facility] [address] [place] [address] Dr. Kasia Nath Cryptosporidium Not detected Normal NOT DETECTED [facility] Comment on above: Performed By: #### P OCGLUC #### [facility] [address] [place] [address] Dr. Kasia Nath Cyclos. Cayetanensis Not detected Normal NOT DETECTED [facility] Comment on above: Performed By: #### P OCGLUC #### [facility] [address] [place] [address] [address] Kasia Nath E. Coli O157 Not Applicable Normal Not Applicable [facility] Comment on above: Performed By: #### P OCGLUC #### [facility] [address] [place] [address] [address] Kasia Nath E. histolytica Not detected Normal NOT DETECTED [facility] Comment on above: Performed By: #### P OCGLUC #### [facility] [address] [place] [address] Dr. Kasia Nath EAEC Not detected Normal NOT DETECTED [facility] Comment on above: Performed By: #### P OCGLUC #### [facility] [address] [place] [address] Dr. Kasia Nath EIEC Not detected Normal NOT DETECTED [facility] Comment on above: Performed By: #### P OCGLUC #### [facility] [address] [place] [address] Dr. Kasia Nath EPEC Not detected Normal NOT DETECTED [facility] Comment on above: Performed By: #### P OCGLUC #### [facility] [address] [place] [address] Dr. Kasia Nath ETEC Not detected Normal NOT DETECTED [facility] Comment on above: Performed By: #### P OCGLUC #### [facility] [address] [place] [address] Dr. Kasia Nath G. Lamblia Not detected Normal NOT DETECTED [facility] Comment on above: Performed By: #### P OCGLUC #### [facility] [address] [place] [address] Dr. Kasia Nath GIPANEL CONTROLS PASSED Normal [facility] Comment on above: Performed By: #### P OCGLUC #### [facility] [address] [place] [address] [address] Kasia FRAIRE HEADER GI PANEL BACTERIA Normal [facility] Comment on above: Performed By: #### P OCGLUC #### [facility] [address] [address] [address] Kasia GE ECOLI GI PANEL DIARRHEAGENIC E.COLI / SHIGELLA Normal [facility] Comment on above: Performed By: #### P OCGLUC #### [facility] [address] [address] [address] Kasia GE INFO SEE BELOW [facility] Comment on above: Result Comment: EAEC - Enteroaggregative E. Coli EPEC- Enteropathogenic E. Coli ETEC- Enterotoxigenic E. Coli lt/st STEC- Shigella-like toxin-producing E. Coli stx1/stx2 EIEC- Shigella/Enteroinvasive E. Coli Performed By: #### P OCGLUC #### [facility] [address] [place] [address] Dr. Kasia GE PARASITES GI PANEL PARASITES Normal [facility] Comment on above: Performed By: #### P OCGLUC #### [facility] [address] [address] [address] Kasia GE VIRUS GI PANEL VIRUSES Normal [facility] Comment on above: Performed By: #### P OCGLUC #### [facility] [address] [address] [address] Kasia Nath Norovirus GI/GII Not detected Normal NOT DETECTED The [facility] Comment on above: Performed By: #### P OCGLUC #### [facility] [address] [address] [address] Kasia Garland. Shigelloides Not detected Normal NOT DETECTED [facility] Comment on above: Performed By: #### P OCGLUC #### [facility] [address] [address] [address] Kasia Nath Rotavirus A Not detected Normal NOT DETECTED The [facility] Comment on above: Performed By: #### P OCGLUC #### [facility] [address] [place] [address] Dr. Kasia Nath Salmonella Not detected Normal NOT DETECTED The [facility] Comment on above: Performed By: #### P OCGLUC #### [facility] [address] [place] [address] Dr. Kasia Nath Sapovirus Not detected Normal NOT DETECTED [facility] Comment on above: Performed By: #### P OCGLUC #### [facility] [address] [place] [address] Dr. Kasia Nath STEC Not detected Normal NOT DETECTED [facility] Comment on above: Performed By: #### P OCGLUC #### [facility] [address] [place] [address] Dr. Kasia Nath Vibrio Not detected Normal NOT DETECTED [facility] Comment on above: Performed By: #### P OCGLUC #### [facility] [address] [place] [address] Dr. Kasia Nath Vibrio Cholera Not detected Normal NOT DETECTED [facility] Comment on above: Performed By: #### P OCGLUC #### [facility] [address] [place] [address] Dr. Kasia Nath Y. Enterocolitica Not detected Normal NOT DETECTED [facility] Comment on above: Performed By: #### P OCGLUC #### [facility] [address] [place] [address] Dr. Kasia Nath CBC AUTO DIFFon 02-14-2023 BASO # 0.0 103/ul Normal 0.0-0.1 [facility] Comment on above: Performed By: #### P OCGLUC #### [facility] [address] [place] [address] Dr. Kasia Nath Basophils/100 WBC (Bld) 0.5 % Normal 0.2-2.0 [facility] Comment on above: Performed By: #### P OCGLUC #### [facility] [address] [place] [address] Dr. Kasia Nath EO # 0.2 103/ul Normal 0.0-0.7 [facility] Comment on above: Performed By: #### P OCGLUC #### [facility] [address] [address] [address] Kasia Nath Eosinophils/100 WBC (Bld) 2.7 % Normal 0.9-7.0 [facility] Comment on above: Performed By: #### P OCGLUC #### [facility] [address] [place] [address] Dr. Kasia Naht Erythrocyte distribution width (RBC) [Ratio] 13.0 % Normal 11.0-15.0 [facility] Comment on above: Performed By: #### P OCGLUC #### [facility] [address] [place] [address] Dr. Kasia Nath Hematocrit (Bld) [Volume fraction] 35.9 % Critically low 36.0-48.0 [facility] Comment on above: Performed By: #### P OCGLUC #### [facility] [address] [place] [address] Dr. Kasia Nath Hemoglobin (Bld) [Mass/Vol] 12.0 g/dL Normal 12.0-16.0 [facility] Comment on above: Performed By: #### P OCGLUC #### [facility] [address] [place] [address] Dr. Kasia Nath IG # 0.02 10e3/ul Normal 0.00-0.03 [facility] Comment on above: Performed By: #### P OCGLUC #### [facility] [address] [place] [address] Dr. Kasia Nath IG % 0.3 % Normal 0.0-0.5 [facility] Comment on above: Performed By: #### P OCGLUC #### [facility] [address] [place] [address] Dr. Kasia Nath LYMPH # 1.8 103/ul Normal 1.2-3.8 [facility] Comment on above: Performed By: #### P OCGLUC #### [facility] [address] [place] [address] Dr. Kasia Nath Lymphocytes/100 WBC (Bld) 22.8 % Normal 20.5-60.0 [facility] Comment on above: Performed By: #### P OCGLUC #### [facility] [address] [address] [address] Kasia Nath MANUAL DIFF REQ NO Normal [facility] Comment on above: Performed By: #### P OCGLUC #### [facility] [address] [address] [address] Kasia Nath MCH (RBC) [Entitic mass] 29.4 pg Normal 26.7-34.0 [facility] Comment on above: Performed By: #### P OCGLUC #### [facility] [address] [address] [address] Kasia Nath MCHC (RBC) [Mass/Vol] 33.4 g/dL Normal 29.9-35.2 [facility] Comment on above: Performed By: #### P OCGLUC #### [facility] [address] [place] [address] Dr. Kasia Nath MCV (RBC) [Entitic vol] 88.0 fL Normal 81.0-99.0 [facility] Comment on above: Performed By: #### P OCGLUC #### [facility] [address] [address] [address] Kasia Nath MONO # 0.7 103/ul Normal 0.3-0.8 [facility] Comment on above: Performed By: #### P OCGLUC #### [facility] [address] [address] [address] Kasia Nath Monocytes/100 WBC (Bld) 9.3 % Normal 1.7-12.0 [facility] Comment on above: Performed By: #### P OCGLUC #### [facility] [address] [address] [address] Kasia Nath NEUT # 5.1 103/ul Normal 1.4-6.5 [facility] Comment on above: Performed By: #### P OCGLUC #### [facility] [address] [address] [address] Kasia Nath Neutrophils/100 WBC (Bld) 64.4 % Normal 43.0-75.0 [facility] Comment on above: Performed By: #### P OCGLUC #### [facility] [address] [address] [address] Kasia Nath Platelet mean volume (Bld) [Entitic vol] 11.7 fL Normal 9.5-13.5 [facility] Comment on above: Performed By: #### P OCGLUC #### [facility] [address] [address] [address] Kasia Nath PLT 175 103/ul Normal 150-450 [facility] Comment on above: Performed By: #### P OCGLUC #### [facility] [address] [address] [address] Kasia Nath RBC 4.08 106/ul Critically low 4.20-5.40 [facility] Comment on above: Performed By: #### P OCGLUC #### [facility] [address] [address] [address] Kasia Nath WBC 7.9 103/ul Normal 4.0-11.0 [facility] Comment on above: Performed By: #### P OCGLUC #### [facility] [address] [address] [address] Kasia Nath LIPASEon 02-14-2023 Lipase [Catalytic activity/Vol] 51.0 U/L Critically low 73.0-393.0 [facility] Comment on above: Performed By: #### L IPA, CMP ####[facility] [address] [address]Dr. Kasia Nath PROF 14(COMP METB)on 023 Albumin [Mass/Vol] 2.8 g/dL Critically low 3.4-5.0 [facility] Comment on above: Performed By: #### L IPA, CMP ####[facility] [address] [address]Dr. Kasia Nath Albumin/Globulin [Mass ratio] 0.7 {ratio} Normal [facility] Comment on above: Performed By: #### L IPA, CMP ####[facility] [address] [address]Dr. Kasia Nath ALP [Catalytic activity/Vol] 90 U/L Normal 46-116 [facility] Comment on above: Performed By: #### L IPA, CMP ####[facility] [address] [address]Dr. Kasia Nath ALT [Catalytic activity/Vol] 15 U/L Normal 14-59 [facility] Comment on above: Performed By: #### L IPA, CMP ####[facility] [address] [address]Dr. Kasia Nath Anion gap [Moles/Vol] 15.6 mmol/L Normal Th e [facility] Comment on above: Performed By: #### L IPA, CMP ####[facility] [address] [place], [place] [address]Dr. Kasia Nath AST [Catalytic activity/Vol] 9 U/L Critically low 15-37 [facility] Comment on above: Performed By: #### L IPA, CMP ####[facility] [address] [place], [place] [address]Dr. Kasia Nath Bilirubin [Mass/Vol] 0.4 mg/dL Normal 0.2-1.0 [facility] Comment on above: Performed By: #### L IPA, CMP ####[facility] [address] [place], [place] [address]Dr. Kasia Nath Calcium [Mass/Vol] 9.1 mg/dL Normal 8.5-10.1 [facility] Comment on above: Performed By: #### L IPA, CMP ####[facility] [address] [place], [place] [address]Dr. Kasia Nath Chloride [Moles/Vol] 104 mmol/L Normal 98-107 [facility] Comment on above: Performed By: #### L IPA, CMP ####[facility] [address] [place], [place] [address]Dr. Kasia Nath CO2 [Moles/Vol] 17.0 mmol/L Critically low 21.0-32.0 [facility] Comment on above: Performed By: #### L IPA, CMP ####[facility] [address] [place], [place] [address]Dr. Kasia Nath Creatinine [Mass/Vol] 1.78 mg/dL Critically high 0.55-1.02 [facility] Comment on above: Performed By: #### L IPA, CMP ####[facility] [address] [address]Dr. Kasia Nath EGFR-AF [place]IZ[place] 34 mL/min/1.73m2 Critically low >=60 [facility] Comment on above: Performed By: #### L IPA, CMP ####[facility] [address] [address]Dr. Kasia Nath EGFR-NON AF CITIZEN [place] 28 mL/min/1.73m2 Critically low >=60 [facility] Comment on above: Performed By: #### L IPA, CMP ####[facility] [address] [place], [place] [address]Dr. Kasia Nath Globulin (S) [Mass/Vol] 4.3 g/dL Normal [facility] Comment on above: Performed By: #### L IPA, CMP ####[facility] [address] [place], [place] [address]Dr. Kasia Nath Glucose [Mass/Vol] 248 mg/dL Critically high 74-106 [facility] Comment on above: Performed By: #### L IPA, CMP ####[facility] [address] [place], [place] [address]Dr. Kasia Nath Potassium [Moles/Vol] 4.6 mmol/L Normal 3.5-5.1 [facility] Comment on above: Performed By: #### L IPA, CMP ####[facility] [address] [place], [place] [address]Dr. Kasia Nath Protein [Mass/Vol] 7.1 g/dL Normal 6.4-8.2 [facility] Comment on above: Performed By: #### L IPA, CMP ####[facility] [address] [place], [place] [address]Dr. Kasia Nath Sodium [Moles/Vol] 132 mmol/L Critically low 136-145 [facility] Comment on above: Performed By: #### L IPA, CMP ####[facility] [address] [address]Dr. Fartuncristy Nath Urea nitrogen [Mass/Vol] 78.0 mg/dL Critically high 7.0-18.0 [facility] Comment on above: Performed By: #### L IPA, CMP ####[facility] [address] [place], [place] [address]Dr. Kasia Nath Urea nitrogen/Creatinine [Mass ratio] 43.8 mg/mg Normal [facility] Comment on above: Performed By: #### L IPA, CMP ####[facility] [address] [place], [place] [address]Dr. Kasia Nath CBC AUTO DIFFon 02-13-2023 BASO # 0.0 103/ul Normal 0.0-0.1 [facility] Comment on above: Performed By: #### C BC ####[facility] [address] [place], [place] [address]Dr. Kasia Nath Basophils/100 WBC (Bld) 0.5 % Normal 0.2-2.0 [facility] Comment on above: Performed By: #### C BC ####[facility] [address] [place], [place] [address]Dr. Kasia Nath EO # 0.1 103/ul Normal 0.0-0.7 [facility] Comment on above: Performed By: #### C BC ####[facility] [address] [place], [place] [address]Dr. Kasia Nath Eosinophils/100 WBC (Bld) 1.0 % Normal 0.9-7.0 [facility] Comment on above: Performed By: #### C BC ####[facility] [address] [place], [place] [address]Dr. Kasia Nath Erythrocyte distribution width (RBC) [Ratio] 12.8 % Normal 11.0-15.0 [facility] Comment on above: Performed By: #### C BC ####[facility] [address] [place], [place] [address]Dr. Kasia Nath Hematocrit (Bld) [Volume fraction] 38.5 % Normal 36.0-48.0 [facility] Comment on above: Performed By: #### C BC ####[facility] [address] [address]Dr. Kasia Nath Hemoglobin (Bld) [Mass/Vol] 13.0 g/dL Normal 12.0-16.0 [facility] Comment on above: Performed By: #### C BC ####[facility] [address] [address]Dr. Kasia Nath IG # 0.02 10e3/ul Normal 0.00-0.03 [facility] Comment on above: Performed By: #### C BC ####[facility] [address] [address]Dr. Kasia Nath IG % 0.2 % Normal 0.0-0.5 [facility] Comment on above: Performed By: #### C BC ####[facility] [address] [place], [place] [address]Dr. Kasia Nath LYMPH # 0.9 103/ul Critically low 1.2-3.8 [facility] Comment on above: Performed By: #### C BC ####[facility] [address] [address]Dr. Kasia Nath Lymphocytes/100 WBC (Bld) 10.0 % Critically low 20.5-60.0 [facility] Comment on above: Performed By: #### C BC ####[facility] [address] [place], [place] [address]Dr. Kasia Nath MANUAL DIFF REQ NO Normal [facility] Comment on above: Performed By: #### C BC ####[facility] [address] [address]Dr. Kasia Nath MCH (RBC) [Entitic mass] 29.5 pg Normal 26.7-34.0 [facility] Comment on above: Performed By: #### C BC ####[facility] [address] [place], [place] [address]Dr. Kasia Nath MCHC (RBC) [Mass/Vol] 33.8 g/dL Normal 29.9-35.2 [facility] Comment on above: Performed By: #### C BC ####[facility] [address] [address]Dr. Kasia Nath MCV (RBC) [Entitic vol] 87.5 fL Normal 81.0-99.0 [facility] Comment on above: Performed By: #### C BC ####[facility] [address] [address]Dr. Kasia Nath MONO # 0.5 103/ul Normal 0.3-0.8 [facility] Comment on above: Performed By: #### C BC ####[facility] [address] [address]Dr. Kasia Nath Monocytes/100 WBC (Bld) 5.7 % Normal 1.7-12.0 [facility] Comment on above: Performed By: #### C BC ####[facility] [address] [place], [place] [address]Dr. Kasia Nath NEUT # 7.2 103/ul Critically high 1.4-6.5 [facility] Comment on above: Performed By: #### C BC ####[facility] [address] [address]Dr. Kasia Portillo Neutrophils/100 WBC (Bld) 82.6 % Critically high 43.0-75.0 [facility] Comment on above: Performed By: #### C BC ####[facility] [address] [address]Dr. Kasia Portillo Platelet mean volume (Bld) [Entitic vol] 11.8 fL Normal 9.5-13.5 [facility] Comment on above: Performed By: #### C BC ####[facility] [address] [address]Dr. Kasia Portillo PLT 187 103/ul Normal 150-450 [facility] Comment on above: Performed By: #### C BC ####[facility] [address] [address]Dr. Kasia Nath RBC 4.40 106/ul Normal 4.20-5.40 [facility] Comment on above: Performed By: #### C BC ####[facility] [address] [place], [place] [address]ThDoreen Nath WBC 8.8 103/ul Normal 4.0-11.0 [facility] Comment on above: Performed By: #### C BC ####[facility] [address] [place], [place] [address]Ac. Kasia Nath CT ABD/PELVIS WO CONon 02-13 [...] JACOB MCCURDY Date: 2023-02-13 14:40 Normal [facility] CULTURE URINEon 02-13-2023 CULTURE URINE Culture Observations : LIGHT GROWTH OF MIXED GENITAL VON. NO POTENTIAL PATHOGENS SEEN. Normal [facility] Comment on above: Performed By: #### U RCX ####[facility] [address] [address]Dr. Kasia Nath Covid-19 PCR ([facility]on SARS-CoV-2 (COVID-19) RNA FERN+probe Ql (Unsp spec) Not detected Normal NOT DETECTED [facility] Comment on above: Result Comment: When diagnostic [...] for this test is supported by the Inspector Government Property of Health and Human Service's declaration that [...] used). Performed By: #### P OCGLUC #### [facility] [address] [place] [address] Dr. Kasia Nath GI PANEL (PCR)on 02-13-2023 Adenovirus F 40/41 Not detected Normal NOT DETECTED [facility] Comment on above: Performed By: #### C BC #### [facility] [address] [place] [address] Dr. Kasia Nath Astrovirus Not detected Normal NOT DETECTED [facility] Comment on above: Performed By: #### C BC #### [facility] [address] [place] [address] Dr. Kasia Del Real. Diff toxin A/B Not detected Normal NOT DETECTED [facility] Comment on above: Performed By: #### C BC #### [facility] [address] [address] [address] Kasia Nath Campylobacter Not detected Normal NOT DETECTED The [facility] Comment on above: Performed By: #### C BC #### [facility] [address] [place] [address] Dr. Kasia Nath Cryptosporidium Not detected Normal NOT DETECTED [facility] Comment on above: Performed By: #### C BC #### [facility] [address] [address] [address] Kasia Nath Cyclos. Cayetanensis Not detected Normal NOT DETECTED [facility] Comment on above: Performed By: #### C BC #### [facility] [address] [place] [address] Dr. Kasia Nath E. Coli O157 Not Applicable Normal Not Applicable [facility] Comment on above: Performed By: #### C BC #### [facility] [address] [place] [address] Dr. Kasia Nath E. histolytica Not detected Normal NOT DETECTED [facility] Comment on above: Performed By: #### C BC #### [facility] [address] [place] [address] Dr. Kasia Nath EAEC Not detected Normal NOT DETECTED [facility] Comment on above: Performed By: #### C BC #### [facility] [address] [place] [address] Dr. Kasia Nath EIEC Not detected Normal NOT DETECTED [facility] Comment on above: Performed By: #### C BC #### [facility] [address] [place] [address] Dr. Kasia Nath EPEC Not detected Normal NOT DETECTED [facility] Comment on above: Performed By: #### C BC #### [facility] [address] [place] [address] Dr. Kasia Nath ETEC Not detected Normal NOT DETECTED [facility] Comment on above: Performed By: #### C BC #### [facility] [address] [place] [address] Dr. Kasia Nath G. Lamblia Not detected Normal NOT DETECTED [facility] Comment on above: Performed By: #### C BC #### [facility] [address] [place] [address] Dr. Kasia Nath GIPANEL CONTROLS PASSED Normal [facility] Comment on above: Performed By: #### C BC #### [facility] [address] [address] [address] Kasia FRAIRE HEADER GI PANEL BACTERIA Normal [facility] Comment on above: Performed By: #### C BC #### [facility] [address] [address] [address] Kasia GE ECOLI GI PANEL DIARRHEAGENIC E.COLI / SHIGELLA Normal [facility] Comment on above: Performed By: #### C BC #### [facility] [address] [address] [address] Kasia GE INFO SEE BELOW Normal [facility] Comment on above: Result Comment: EAEC - Enteroaggregative E. Coli EPEC- Enteropathogenic E. Coli ETEC- Enterotoxigenic E. Coli lt/st STEC- Shigella-like toxin-producing E. Coli stx1/stx2 EIEC- Shigella/Enteroinvasive E. Coli Performed By: #### C BC #### [facility] [address] [address] [address] Kasia GE PARASITES GI PANEL PARASITES Normal [facility] Comment on above: Performed By: #### C BC #### [facility] [address] [address] [address] Kasia GE VIRUS GI PANEL VIRUSES Normal [facility] Comment on above: Performed By: #### C BC #### [facility] [address] [address] [address] Kasia Nath Norovirus GI/GII Not detected Normal NOT DETECTED [facility] Comment on above: Performed By: #### C BC #### [facility] [address] [address] [address] Kasia Nath P. Shigelloides Not detected Normal NOT DETECTED [facility] Comment on above: Performed By: #### C BC #### [facility] [address] [address] [address] Kasia Nath Rotavirus A Not detected Normal NOT DETECTED [facility] Comment on above: Performed By: #### C BC #### [facility] [address] [address] [address] Kasia Nath Salmonella Not detected Normal NOT DETECTED [facility] Comment on above: Performed By: #### C BC #### [facility] [address] [place] [address] Dr. Kasia Nath Sapovirus Not detected Normal NOT DETECTED [facility] Comment on above: Performed By: #### C BC #### [facility] [address] [place] [address] Dr. Kasia Nath STEC Not detected Normal NOT DETECTED [facility] Comment on above: Performed By: #### C BC #### [facility] [address] [place] [address] Dr. Kasia Nath Vibrio Not detected Normal NOT DETECTED [facility] Comment on above: Performed By: #### C BC #### [facility] [address] [place] [address] Dr. Kasia Nath Vibrio Cholera Not detected Normal NOT DETECTED [facility] Comment on above: Performed By: #### C BC #### [facility] [address] [place] [address] Dr. Kasia Nath Y. Enterocolitica Not detected Normal NOT DETECTED [facility] Comment on above: Performed By: #### C BC #### [facility] [address] [place] [address] Dr. Kasia Nath LACTATE/LACTIC ACIDon 2022 Lactate [Moles/Vol] 1.7 mmol/L Normal 0.4-2.0 [facility] Comment on above: Performed By: #### L ACT ####[facility] [address] [address]Dr. Kasia Nath LIPASEon 02-13-2023 Lipase [Catalytic activity/Vol] 82.0 U/L Normal 73.0-393.0 [facility] Comment on above: Performed By: #### L IPA, CMP #### [facility] [address] [place] [address] Dr. Kasia Nath POINT OF CARE GLUCOSEon Glucose [Mass/Vol] 229 mg/dL Critically high 74-106 [facility] Comment on above: Performed By: #### P OCGLUC #### [facility] [address] [place] [address] Dr. Kasia Nath Glucose [Mass/Vol] 474 mg/dL Critically high 74-106 [facility] Comment on above: Performed By: #### P OCGLUC #### [facility] [address] [place] [address] Dr. Kasia Nath PROF 14(COMP METB)on 023 Albumin [Mass/Vol] 3.4 g/dL Normal 3.4-5.0 [facility] Comment on above: Performed By: #### L IPA, CMP #### [facility] [address] [place] [address] Dr. Kasia Nath Albumin/Globulin [Mass ratio] 0.7 {ratio} Normal [facility] Comment on above: Performed By: #### L IPA, CMP #### [facility] [address] [place] [address] Dr. Kasia Nath ALP [Catalytic activity/Vol] 106 U/L Normal 46-116 [facility] Comment on above: Performed By: #### L IPA, CMP #### [facility] [address] [place] [address] Dr. Kasia Nath ALT [Catalytic activity/Vol] 21 U/L Normal 14-59 [facility] Comment on above: Performed By: #### L IPA, CMP #### [facility] [address] [place] [address] Dr. Kasia Nath Anion gap [Moles/Vol] 17.7 mmol/L Normal [facility] Comment on above: Performed By: #### L IPA, CMP #### [facility] [address] [place] [address] Dr. Kasia Nath AST [Catalytic activity/Vol] 11 U/L Critically low 15-37 [facility] Comment on above: Performed By: #### L IPA, CMP #### [facility] [address] [place] [address] Dr. Kasia Nath Bilirubin [Mass/Vol] 0.5 mg/dL Normal 0.2-1.0 [facility] Comment on above: Performed By: #### L IPA, CMP #### [facility] [address] [place] [address] Dr. Kasia Nath Calcium [Mass/Vol] 9.6 mg/dL Normal 8.5-10.1 [facility] Comment on above: Performed By: #### L IPA, CMP #### [facility] [address] [place] [address] Dr. Kasia Nath Chloride [Moles/Vol] 99 mmol/L Normal 98-107 [facility] Comment on above: Performed By: #### L IPA, CMP #### [facility] [address] [place] [address] Dr. Kasia Nath CO2 [Moles/Vol] 20.6 mmol/L Critically low 21.0-32.0 [facility] Comment on above: Performed By: #### L IPA, CMP #### [facility] [address] [place] [address] Dr. Kasia Nath Creatinine [Mass/Vol] 2.14 mg/dL Critically high 0.55-1.02 [facility] Comment on above: Performed By: #### L IPA, CMP #### [facility] [address] [place] [address] Dr. Kasia Nath EGFR-AF CITIZ[place] 27 mL/min/1.73m2 Critically low >=60 [facility] Comment on above: Performed By: #### L IPA, CMP #### [facility] [address] [place] [address] Dr. Kasia Nath EGFR-NON AF CITIZEN OF [place] 22 mL/min/1.73m2 Critically low >=60 [facility] Comment on above: Performed By: #### L IPA, CMP #### [facility] [address] [place] [address] Dr. Kasia Nath Globulin (S) [Mass/Vol] 4.8 g/dL Normal [facility] Comment on above: Performed By: #### L IPA, CMP #### [facility] [address] [place] [address] Dr. Kasia Nath Glucose [Mass/Vol] 498 mg/dL Critically high 74-106 [facility] Comment on above: Performed By: #### L IPA, CMP #### [facility] [address] [address] [address] Kasia Nath Potassium [Moles/Vol] 5.3 mmol/L Critically high 3.5-5.1 [facility] Comment on above: Performed By: #### L IPA, CMP #### [facility] [address] [address] [address] Kasia Nath Protein [Mass/Vol] 8.2 g/dL Normal 6.4-8.2 [facility] Comment on above: Performed By: #### L IPA, CMP #### [facility] [address] [place] [address] Dr. Kasia Nath Sodium [Moles/Vol] 132 mmol/L Critically low 136-145 [facility] Comment on above: Performed By: #### L IPA, CMP #### [facility] [address] [place] [address] Dr. Kasia Nath Urea nitrogen [Mass/Vol] 86.0 mg/dL Critically high 7.0-18.0 [facility] Comment on above: Performed By: #### L IPA, CMP #### [facility] [address] [place] [address] Dr. Kasia Nath Urea nitrogen/Creatinine [Mass ratio] 40.2 mg/mg Normal [facility] Comment on above: Performed By: #### L IPA, CMP #### [facility] [address] [address] [address] Kasia Nath UA RANDOM W/MICROSCOPICon BACTERIA TRACE Abnormal NONE SEEN [facility] Comment on above: Performed By: #### U AMIC ####[facility] [address] [address]Dr. Kasia Nath Bilirubin Ql (U) Negative Normal NEGATIVE [facility] Comment on above: Performed By: #### U AMIC ####[facility] [address] [address]Dr. Kasia Nath CAST SEEN Abnormal NONE SEEN [facility] Comment on above: Performed By: #### U AMIC ####[facility] [address] [address]Dr. Kasia Nath Clarity (U) CLEAR Normal CLEAR [facility] Comment on above: Performed By: #### U AMIC ####[facility] [address] [address]Dr. Kasia Nath Color (U) LT. YELLOW Normal YELLOW [facility] Comment on above: Performed By: #### U AMIC ####[facility] [address] [address]Dr. Kasia Nath Crystals LM Nom (Urine sed) NONE SEEN Normal NONE SEEN [facility] Comment on above: Performed By: #### U AMIC ####[facility] [address] [address]Dr. Kasia Nath Epithelial cells LM Ql (Urine sed) FEW Abnormal NONE SEEN /RARE [facility] Comment on above: Performed By: #### U AMIC ####[facility] [address] [place], [place] [address]Dr. Kasia Nath Glucose Ql (U) >1000 Abnormal NEGATIVE [facility] Comment on above: Performed By: #### U AMIC ####[facility] [address] [address]Dr. Kasia Nath Hemoglobin Ql (U) Negative Normal NEGATIVE [facility] Comment on above: Performed By: #### U AMIC ####[facility] [address] [address]Dr. Kasia Nath HYALINE CAST RARE Normal [facility] Comment on above: Performed By: #### U AMIC ####[facility] Em[address] [place], [place] [address]Dr. Kasia Nath Ketones Ql (U) Negative Normal NEGATIVE [facility] Comment on above: Performed By: #### U AMIC ####[facility] [address] [place], [place] [address]Dr. Kasia Nath LEUKOCYTES Negative Normal NEGATIVE [facility] Comment on above: Performed By: #### U AMIC ####[facility] [address] [address]Dr. Kasia Nath MUCOUS NONE SEEN Normal NONE SEEN [facility] Comment on above: Performed By: #### U AMIC ####[facility] [address] [address]Dr. Kasia Nath Nitrite Ql (U) Negative Normal NEGATIVE [facility] Comment on above: Performed By: #### U AMIC ####[facility] M[address] [place], [place] [address]Dr. Kasia Nath pH (U) 5.5 [pH] Normal 5-9 [facility] Comment on above: Performed By: #### U AMIC ####[facility] [address] [place], [place] [address]Dr. Kasia Nath RBC 0-2 Normal 0-2 [facility] Comment on above: Performed By: #### U AMIC ####[facility] [address] [place], [place] [address]Dr. Kasia Nath SPEC GRAVITY 1.015 Normal 1.005-<=1.02 5 [facility] Comment on above: Performed By: #### U AMIC ####[facility] [address] [place], [place] [address]Dr. Kasia Nath UA PROTEIN TRACE Normal NEGATIVE/ TRACE [facility] Comment on above: Performed By: #### U AMIC ####[facility] Cl[address] [place], [place] [address]Dr. Kasia Nath Urobilinogen Qn (U) 0.2 {Meka'U}/dL Normal 0.2 - 1. 0 [facility] Comment on above: Performed By: #### U AMIC ####[facility] [address] [place], [place] [address]Dr. Kasia Nath WBC 0-2 Abnormal NONE SEEN [facility] Comment on above: Performed By: #### U AMIC ####[facility] X[address]ce[address] [place], [place] [address]Dr. Kasia Nath BNPon 01-16-2023 Natriuretic peptide B (Bld) [Mass/Vol] 1675.0 pg/mL Normal <=1,800.0 [facility] Comment on above: Performed By: #### B TRUST OFFICER, CMP ####[facility] [address] [place], [place] [address]Dr. Kasia Nath PROF 14(COMP METB)on 023 Albumin [Mass/Vol] 3.4 g/dL Normal 3.4-5.0 [facility] Comment on above: Performed By: #### B TRUST OFFICER, CMP ####[facility] V[address] [place], [place] [address]Dr. Kasia Nath Albumin/Globulin [Mass ratio] 0.8 {ratio} Normal [facility] Comment on above: Performed By: #### B TRUST OFFICER, CMP ####[facility] [address] [place], [place] [address]Dr. Kasia Ntah ALP [Catalytic activity/Vol] 99 U/L Normal 46-116 [facility] Comment on above: Performed By: #### B TRUST OFFICER, CMP ####[facility] [address] [place], [place] [address]Dr. Kasia Nath ALT [Catalytic activity/Vol] 18 U/L Normal 14-59 [facility] Comment on above: Performed By: #### B TRUST OFFICER, CMP ####[facility] [address] [place], [place] [address]Dr. Kasia Nath Anion gap [Moles/Vol] 10.6 mmol/L Normal [facility] Comment on above: Performed By: #### B TRUST OFFICER, CMP ####[facility] [address] [place], [place] [address]Dr. Kasia Nath AST [Catalytic activity/Vol] 15 U/L Normal 15-37 [facility] Comment on above: Performed By: #### B TRUST OFFICER, CMP ####[facility] [address] [place], [place] [address]Dr. Kasia Nath Bilirubin [Mass/Vol] 0.5 mg/dL Normal 0.2-1.0 [facility] Comment on above: Performed By: #### B TRUST OFFICER, CMP ####[facility] [address] [address]Dr. Kasia Nath Calcium [Mass/Vol] 9.1 mg/dL Normal 8.5-10.1 [facility] Comment on above: Performed By: #### B TRUST OFFICER, CMP ####[facility] [address] [address]Dr. Kasia Nath Chloride [Moles/Vol] 98 mmol/L Normal 98-107 [facility] Comment on above: Performed By: #### B TRUST OFFICER, CMP ####[facility] [address] [address]Dr. Kasia Nath CO2 [Moles/Vol] 30.4 mmol/L Normal 21.0-32.0 [facility] Comment on above: Performed By: #### B TRUST OFFICER, CMP ####[facility] [address] [place], [place] [address]Dr. Kasia Nath Creatinine [Mass/Vol] 1.44 mg/dL Critically high 0.55-1.02 [facility] Comment on above: Performed By: #### B TRUST OFFICER, CMP ####[facility] M[address] [place], [place] [address]Dr. Kasia Nath EGFR-AF [place]IZ[place] 43 mL/min/1.73m2 Critically low >=60 [facility] Comment on above: Performed By: #### B TRUST OFFICER, CMP ####[facility] [address] [place], [place] [address]Dr. Kasia Nath EGFR-NON AF [place]IZ[place] 35 mL/min/1.73m2 Critically low >=60 [facility] Comment on above: Performed By: #### B TRUST OFFICER, CMP ####[facility] [address] [address]Dr. Kasia Portillo Globulin (S) [Mass/Vol] 4.4 g/dL Normal [facility] Comment on above: Performed By: #### B TRUST OFFICER, CMP ####[facility] [address] [address]Dr. Fartuncristy Portillo Glucose [Mass/Vol] 401 mg/dL Critically high 74-106 [facility] Comment on above: Performed By: #### B TRUST OFFICER, CMP ####[facility] [address] [address]Dr. Kasia Nath Potassium [Moles/Vol] 5.0 mmol/L Normal 3.5-5.1 [facility] Comment on above: Performed By: #### B TRUST OFFICER, CMP ####[facility] [address] [address]Dr. Kasia Nath Protein [Mass/Vol] 7.8 g/dL Normal 6.4-8.2 [facility] Comment on above: Performed By: #### B TRUST OFFICER, CMP ####[facility] [address] [place], [place] [address]Dr. Kasia Nath Sodium [Moles/Vol] 134 mmol/L Critically low 136-145 [facility] Comment on above: Performed By: #### B TRUST OFFICER, CMP ####[facility] [address] [place], [place] [address]Dr. Kasia Nath Urea nitrogen [Mass/Vol] 46.0 mg/dL Critically high 7.0-18.0 [facility] Comment on above: Performed By: #### B TRUST OFFICER, CMP ####[facility] [address] [place], [place] [address]Dr. Kasia Nath Urea nitrogen/Creatinine [Mass ratio] 31.9 mg/mg Normal [facility] Comment on above: Performed By: #### B TRUST OFFICER, CMP ####[facility] [address] [place], [place] [address]Dr. Kasia Nath BNPon 01-05-2023 Natriuretic peptide B (Bld) [Mass/Vol] 1389.0 pg/mL Normal <=1,800.0 [facility] Comment on above: Performed By: #### B TRUST OFFICER, CMADM, CMP ####[facility] [address] [place], [place] [address]Dr. Kasia Portillo CARDIAC EMERY ADMITon 023 CK [Catalytic activity/Vol] 138 U/L Normal 26-192 [facility] Comment on above: Performed By: #### B TRUST OFFICER, CMADM, CMP ####[facility] [address] [address]Dr. Kasia Nath CK.MB [Mass/Vol] 2.22 ng/mL Normal <=3.60 [facility] Comment on above: Performed By: #### B TRUST OFFICER, CMADM, CMP ####[facility] [address] [address]Dr. Kasia Nath HSTROP 15.9 pg/mL Normal 4.0-51.3 [facility] Comment on above: Result Comment: CUT- OFF POINTS HAVE BEEN ESTABLISHED BASED ON THE FOURTH UNIVERSAL DEFINITIONS OF MYOCARDIAL INFARCTION. THE UPPER REFERENCE LIMIT (URL) OF TROPONIN, DEFINED THE 99TH PERCENTILE OF cTnI DISTRIBUTION IN A REFERENCE POPULATION, HAS BEEN CONFIRMED THE DECISION THRESHOLD FOR [place] DIAGNOSIS. Performed By: #### B TRUST OFFICER, CMADM, CMP ####[facility] [address] [id number]. Kasia Nath GRETTA 178 ng/mL Critically high 9-82 [facility] Comment on above: Performed By: #### B TRUST OFFICER, CMADM, CMP ####[facility] [address] [id number]. Kasia Nath CBC AUTO DIFFon 01-05-2023 BASO # 0.1 103/ul Normal 0.0-0.1 [facility] Comment on above: Performed By: #### C BC #### [facility] [address] [address] [address] Kasia Nath Basophils/100 WBC (Bld) 0.7 % Normal 0.2-2.0 [facility] Comment on above: Performed By: #### C BC #### [facility] [address] [address] [address] Kasia Nath EO # 0.3 103/ul Normal 0.0-0.7 [facility] Comment on above: Performed By: #### C BC #### [facility] [address] [address] [address] Kasia Nath Eosinophils/100 WBC (Bld) 2.9 % Normal 0.9-7.0 [facility] Comment on above: Performed By: #### C BC #### [facility] [address] [place] [address] Dr. Kasia Nath Erythrocyte distribution width (RBC) [Ratio] 13.5 % Normal 11.0-15.0 [facility] Comment on above: Performed By: #### C BC #### [facility] [address] [place] [address] Dr. Kasia Nath Hematocrit (Bld) [Volume fraction] 39.8 % Normal 36.0-48.0 [facility] Comment on above: Performed By: #### C BC #### [facility] [address] [place] [address] Dr. Kasia Nath Hemoglobin (Bld) [Mass/Vol] 13.5 g/dL Normal 12.0-16.0 [facility] Comment on above: Performed By: #### C BC #### [facility] [address] [place] [address] Dr. Kasia Nath IG # 0.02 10e3/ul Normal 0.00-0.03 [facility] Comment on above: Performed By: #### C BC #### [facility] [address] [place] [address] Dr. Kasia Nath IG % 0.2 % Normal 0.0-0.5 [facility] Comment on above: Performed By: #### C BC #### [facility] [address] [place] [address] Dr. Kasia Nath LYMPH # 1.9 103/ul Normal 1.2-3.8 [facility] Comment on above: Performed By: #### C BC #### [facility] [address] [place] [address] Dr. Kasia Nath Lymphocytes/100 WBC (Bld) 22.0 % Normal 20.5-60.0 [facility] Comment on above: Performed By: #### C BC #### [facility] [address] [place] [address] Dr. Kasia Nath MANUAL DIFF REQ NO Normal [facility] Comment on above: Performed By: #### C BC #### [facility] [address] [place] [address] Dr. Kasia Nath MCH (RBC) [Entitic mass] 29.8 pg Normal 26.7-34.0 [facility] Comment on above: Performed By: #### C BC #### [facility] [address] [place] [address] Dr. Kasia Nath MCHC (RBC) [Mass/Vol] 33.9 g/dL Normal 29.9-35.2 [facility] Comment on above: Performed By: #### C BC #### [facility] [address] [place] [address] Dr. Kasia Nath MCV (RBC) [Entitic vol] 87.9 fL Normal 81.0-99.0 [facility] Comment on above: Performed By: #### C BC #### [facility] [address] [place] [address] Dr. Kasia Nath MONO # 0.8 103/ul Normal 0.3-0.8 [facility] Comment on above: Performed By: #### C BC #### [facility] [address] [place] [address] Dr. Kasia Nath Monocytes/100 WBC (Bld) 8.8 % Normal 1.7-12.0 [facility] Comment on above: Performed By: #### C BC #### [facility] [address] [place] [address] Dr. Kasia Nath NEUT # 5.6 103/ul Normal 1.4-6.5 [facility] Comment on above: Performed By: #### C BC #### [facility] [address] [place] [address] Dr. Kasia Nath Neutrophils/100 WBC (Bld) 65.4 % Normal 43.0-75.0 [facility] Comment on above: Performed By: #### C BC #### [facility] [address] [place] [address] Dr. Kasia Nath Platelet mean volume (Bld) [Entitic vol] 10.6 fL Normal 9.5-13.5 [facility] Comment on above: Performed By: #### C BC #### [facility] [address] [address] [address] Kasia Nath PLT 222 103/ul Normal 150-450 [facility] Comment on above: Performed By: #### C BC #### [facility] [address] [place] [address] Dr. Kasia Nath RBC 4.53 106/ul Normal 4.20-5.40 [facility] Comment on above: Performed By: #### C BC #### [facility] [address] [address] [address] Kasia Nath WBC 8.6 103/ul Normal 4.0-11.0 [facility] Comment on above: Performed By: #### C BC #### [facility] [address] [place] [address] Dr. Kasia Nath PROF 14(COMP METB)on 023 Albumin [Mass/Vol] 3.3 g/dL Critically low 3.4-5.0 [facility] Comment on above: Performed By: #### B TRUST OFFICER, CMADM, CMP #### [facility] [address] [place] [address] Dr. Kasia Nath Albumin/Globulin [Mass ratio] 0.7 {ratio} Normal [facility] Comment on above: Performed By: #### B TRUST OFFICER, CMADM, CMP #### [facility] [address] [place] [address] Dr. Kasia Nath ALP [Catalytic activity/Vol] 106 U/L Normal 46-116 [facility] Comment on above: Performed By: #### B TRUST OFFICER, CMADM, CMP #### [facility] [address] [place] [address] Dr. Kasia Nath ALT [Catalytic activity/Vol] 22 U/L Normal 14-59 [facility] Comment on above: Performed By: #### B TRUST OFFICER, CMADM, CMP #### [facility] [address] [place] [address] Dr. Kasia Nath Anion gap [Moles/Vol] 12.0 mmol/L Normal [facility] Comment on above: Performed By: #### B TRUST OFFICER, CMADM, CMP #### [facility] [address] [address] [address] Kasia Nath AST [Catalytic activity/Vol] 23 U/L Normal 15-37 [facility] Comment on above: Performed By: #### B TRUST OFFICER, CMADM, CMP #### [facility] [address] [address] [address] Kasia Nath Bilirubin [Mass/Vol] 0.7 mg/dL Normal 0.2-1.0 [facility] Comment on above: Performed By: #### B TRUST OFFICER, CMADM, CMP #### [facility] [address] [address] [address] Kasia Nath Calcium [Mass/Vol] 8.8 mg/dL Normal 8.5-10.1 [facility] Comment on above: Performed By: #### B TRUST OFFICER, CMADM, CMP #### [facility] [address] [address] [address] Kasia Nath Chloride [Moles/Vol] 98 mmol/L Normal 98-107 [facility] Comment on above: Performed By: #### B TRUST OFFICER, CMADM, CMP #### [facility] [address] [address] [address] Kasia Nath CO2 [Moles/Vol] 30.2 mmol/L Normal 21.0-32.0 [facility] Comment on above: Performed By: #### B TRUST OFFICER, CMADM, CMP #### [facility] [address] [address] [address] Kasia Nath Creatinine [Mass/Vol] 1.19 mg/dL Critically high 0.55-1.02 [facility] Comment on above: Performed By: #### B TRUST OFFICER, CMADM, CMP #### [facility] [address] [address] [address] Kasia Nath EGFR-AF CITIZEN [place] 53 mL/min/1.73m2 Critically low >=60 [facility] Comment on above: Performed By: #### B TRUST OFFICER, CMADM, CMP #### [facility] [address] [address] [address] Kasia Nath EGFR-NON AF CITIZEN [place] 44 mL/min/1.73m2 Critically low >=60 [facility] Comment on above: Performed By: #### B TRUST OFFICERLEONORA, CMP #### [facility] [address] [address] [address] Kasia Nath Globulin (S) [Mass/Vol] 4.7 g/dL Normal [facility] Comment on above: Performed By: #### B TRUST OFFICER, LEONORA, CMP #### [facility] [address] [address] [address] Kasia Nath Glucose [Mass/Vol] 124 mg/dL Critically high 74-106 [facility] Comment on above: Performed By: #### B TRUST OFFICERLEONORA, CMP #### [facility] [address] [address] [address] Kasia Nath Potassium [Moles/Vol] 3.2 mmol/L Critically low 3.5-5.1 [facility] Comment on above: Performed By: #### B TRUST OFFICERLEONORA, CMP #### [facility] [address] [place] [address] Dr. Kasia Nath Protein [Mass/Vol] 8.0 g/dL Normal 6.4-8.2 [facility] Comment on above: Performed By: #### B TRUST OFFICERLEONORA, CMP #### [facility] [address] [place] [address] Dr. Kasia Nath Sodium [Moles/Vol] 137 mmol/L Normal 136-145 [facility] Comment on above: Performed By: #### B TRUST OFFICER, LEONORA, CMP #### [facility] [address] [address] [address] Kasia Nath Urea nitrogen [Mass/Vol] 29.0 mg/dL Critically high 7.0-18.0 [facility] Comment on above: Performed By: #### B TRUST OFFICER, LEONORA, CMP #### [facility] [address] [address] [address] Kasia Nath Urea nitrogen/Creatinine [Mass ratio] 24.4 mg/mg Normal [facility] Comment on above: Performed By: #### B TRUST OFFICER, LEONORA, CMP #### [facility] [address] [address] [address] Kasia Nath TROPONIN, HIGH SENSITIVITYon 01-05-2023 HSTROP 18.4 pg/mL Normal 4.0-51.3 [facility] Comment on above: Result Comment: CUT- OFF POINTS HAVE BEEN ESTABLISHED BASED ON THE FOURTH UNIVERSAL DEFINITIONS OF MYOCARDIAL INFARCTION. THE UPPER REFERENCE LIMIT (URL) OF TROPONIN, DEFINED THE 99TH PERCENTILE OF cTnI DISTRIBUTION IN A REFERENCE POPULATION, HAS BEEN CONFIRMED THE DECISION THRESHOLD FOR [place] DIAGNOSIS. Performed By: #### H STROPN ####[facility] [address] [id number] Nath XR CHEST 1 Von 01-05-2023 XR [...] BIN ROJAS Date: 2023-01-05 04:39 Normal [facility] BNPon 01-02-2023 Natriuretic peptide B (Bld) [Mass/Vol] 2583.0 pg/mL Critically high <=1,800.0 [facility] Comment on above: Performed By: #### B TRUST OFFICER, CMP ####[facility] [address] [address]Dr. Kasia Nath CBC AUTO DIFFon 01-02-2023 BASO # 0.1 103/ul Normal 0.0-0.1 [facility] Comment on above: Performed By: #### P OCGLUC #### [facility] [address] [address] [address] Kasia Nath Basophils/100 WBC (Bld) 0.9 % Normal 0.2-2.0 [facility] Comment on above: Performed By: #### P OCGLUC #### [facility] [address] [place] [address] Dr. Kasia Nath EO # 0.2 103/ul Normal 0.0-0.7 [facility] Comment on above: Performed By: #### P OCGLUC #### [facility] [address] [place] [address] Dr. Kasia Nath Eosinophils/100 WBC (Bld) 2.3 % Normal 0.9-7.0 [facility] Comment on above: Performed By: #### P OCGLUC #### [facility] [address] [place] [address] Dr. Kasia Nath Erythrocyte distribution width (RBC) [Ratio] 13.8 % Normal 11.0-15.0 [facility] Comment on above: Performed By: #### P OCGLUC #### [facility] [address] [place] [address] Dr. Kasia Nath Hematocrit (Bld) [Volume fraction] 35.5 % Critically low 36.0-48.0 [facility] Comment on above: Performed By: #### P OCGLUC #### [facility] [address] [place] [address] Dr. Kasia Nath Hemoglobin (Bld) [Mass/Vol] 11.6 g/dL Critically low 12.0-16.0 [facility] Comment on above: Performed By: #### P OCGLUC #### [facility] [address] [place] [address] Dr. Kasia Nath IG # 0.02 10e3/ul Normal 0.00-0.03 [facility] Comment on above: Performed By: #### P OCGLUC #### [facility] [address] [place] [address] Dr. Kasia Nath IG % 0.3 % Normal 0.0-0.5 [facility] Comment on above: Performed By: #### P OCGLUC #### [facility] [address] [address] [address] Kasia Nath LYMPH # 2.0 103/ul Normal 1.2-3.8 [facility] Comment on above: Performed By: #### P OCGLUC #### [facility] [address] [address] [address] Kasia Nath Lymphocytes/100 WBC (Bld) 24.8 % Normal 20.5-60.0 [facility] Comment on above: Performed By: #### P OCGLUC #### [facility] [address] [address] [address] Kasia Nath MANUAL DIFF REQ NO Normal [facility] Comment on above: Performed By: #### P OCGLUC #### [facility] [address] [place] [address] Dr. Kasia Nath MCH (RBC) [Entitic mass] 28.7 pg Normal 26.7-34.0 [facility] Comment on above: Performed By: #### P OCGLUC #### [facility] [address] [place] [address] Dr. Kasia Nath MCHC (RBC) [Mass/Vol] 32.7 g/dL Normal 29.9-35.2 [facility] Comment on above: Performed By: #### P OCGLUC #### [facility] [address] [place] [address] Dr. Kasia Nath MCV (RBC) [Entitic vol] 87.9 fL Normal 81.0-99.0 [facility] Comment on above: Performed By: #### P OCGLUC #### [facility] [address] [place] [address] Dr. Kasia Nath MONO # 0.8 103/ul Normal 0.3-0.8 [facility] Comment on above: Performed By: #### P OCGLUC #### [facility] [address] [place] [address] Dr. Kasia Nath Monocytes/100 WBC (Bld) 9.6 % Normal 1.7-12.0 [facility] Comment on above: Performed By: #### P OCGLUC #### [facility] [address] [address] [address] Kasia Nath NEUT # 5.0 103/ul Normal 1.4-6.5 [facility] Comment on above: Performed By: #### P OCGLUC #### [facility] [address] [address] [address] Kasia Nath Neutrophils/100 WBC (Bld) 62.1 % Normal 43.0-75.0 [facility] Comment on above: Performed By: #### P OCGLUC #### [facility] [address] [address] [address] Kasia Nath Platelet mean volume (Bld) [Entitic vol] 10.7 fL Normal 9.5-13.5 [facility] Comment on above: Performed By: #### P OCGLUC #### [facility] [address] [address] [address] Kasia Nath PLT 204 103/ul Normal 150-450 [facility] Comment on above: Performed By: #### P OCGLUC #### [facility] [address] [address] [address] Kasia Nath RBC 4.04 106/ul Critically low 4.20-5.40 [facility] Comment on above: Performed By: #### P OCGLUC #### [facility] [address] [address] [address] Kasia Nath WBC 8.0 103/ul Normal 4.0-11.0 [facility] Comment on above: Performed By: #### P OCGLUC #### [facility] [address] [address] [address] Kasia Nath GLYCOHEMOGLOBIN A1Con 2022 ADA RECOMMENDATION SEE BELOW Normal [facility] Comment on above: Result Comment: ADA RECOMMENDED LIMIT 4.0 - 6.0 ADA THERAPEUTIC TARGET < 7.0 ACTION SUGGESTED > 7.0 Performed By: #### A 1C ####[facility] [address] [address]Dr. Kasia Nath Glucose [Mass/Vol] 298 mg/dL Normal [facility] Comment on above: Performed By: #### A 1C ####[facility] [address] [id number] Nath HbA1c (Bld) [Mass fraction] 12.0 % Critically high 4.5-6.2 [facility] Comment on above: Performed By: #### A 1C ####[facility] [address] [id number] Nath POINT OF CARE GLUCOSEon 12-14 Glucose [Mass/Vol] 227 mg/dL Critically high 74-106 [facility] Comment on above: Performed By: #### C BC #### [facility] [address] [address] [address] Kasia Nath Glucose [Mass/Vol] 214 mg/dL Critically high -106 [facility] Comment on above: Performed By: #### C BC #### [facility] [address] [address] [address] Kasia Nath PROF 14(COMP METB)on 023 Albumin [Mass/Vol] 2.6 g/dL Critically low 3.4-5.0 [facility] Comment on above: Performed By: #### B TRUST OFFICER, CMP ####[facility] [address] [address]Dr. Kasia Nath Albumin/Globulin [Mass ratio] 0.6 {ratio} Normal [facility] Comment on above: Performed By: #### B TRUST OFFICER, CMP ####[facility] [address] [address]Dr. Kasia Nath ALP [Catalytic activity/Vol] 94 U/L Normal 46-116 [facility] Comment on above: Performed By: #### B TRUST OFFICER, CMP ####[facility] [address] [address]Dr. Kasia Nath ALT [Catalytic activity/Vol] 16 U/L Normal 14-59 [facility] Comment on above: Performed By: #### B TRUST OFFICER, CMP ####[facility] [address] [address]Dr. Kasia Nath Anion gap [Moles/Vol] 10.6 mmol/L Normal [facility] Comment on above: Performed By: #### B TRUST OFFICER, CMP ####[facility] [address] [place], [place] [address]Dr. Kasia Nath AST [Catalytic activity/Vol] 15 U/L Normal 15-37 [facility] Comment on above: Performed By: #### B TRUST OFFICER, CMP ####[facility] [address] [place], [place] [address]Dr. Kasia Nath Bilirubin [Mass/Vol] 0.8 mg/dL Normal 0.2-1.0 [facility] Comment on above: Performed By: #### B TRUST OFFICER, CMP ####[facility] [address] [place], [place] [address]Dr. Kasia Nath Calcium [Mass/Vol] 8.5 mg/dL Normal 8.5-10.1 [facility] Comment on above: Performed By: #### B TRUST OFFICER, CMP ####[facility] [address] [place], [place] [address]Dr. Kasia Nath Chloride [Moles/Vol] 102 mmol/L Normal 98-107 [facility] Comment on above: Performed By: #### B TRUST OFFICER, CMP ####[facility] [address] [place], [place] [address]Dr. Kasia Nath CO2 [Moles/Vol] 30.2 mmol/L Normal 21.0-32.0 [facility] Comment on above: Performed By: #### B TRUST OFFICER, CMP ####[facility] [address] [place], [place] [address]Dr. Kasia Nath Creatinine [Mass/Vol] 0.94 mg/dL Normal 0.55-1.02 [facility] Comment on above: Performed By: #### B TRUST OFFICER, CMP ####[facility] [address] [place], [place] [address]Dr. Fartuncristy Portillo EGFR-AF [place]IZ[place] >60 Normal >=60 [facility] Comment on above: Performed By: #### B TRUST OFFICER, CMP ####[facility] [address] [place], [place] [address]Dr. Kasia Nath EGFR-NON AF CITIZ[place] 58 mL/min/1.73m2 Critically low >=60 [facility] Comment on above: Performed By: #### B TRUST OFFICER, CMP ####[facility] [address] [place], [place] [address]Dr. Kasia Nath Globulin (S) [Mass/Vol] 4.0 g/dL Normal [facility] Comment on above: Performed By: #### B TRUST OFFICER, CMP ####[facility] [address] [place], [place] [address]Dr. Kasia Nath Glucose [Mass/Vol] 150 mg/dL Critically high 74-106 [facility] Comment on above: Performed By: #### B TRUST OFFICER, CMP ####[facility] [address] [place], [place] [address]Dr. Kasia Nath Potassium [Moles/Vol] 3.8 mmol/L Normal 3.5-5.1 [facility] Comment on above: Performed By: #### B TRUST OFFICER, CMP ####[facility] [address] [place], [place] [address]Dr. Kasia Nath Protein [Mass/Vol] 6.6 g/dL Normal 6.4-8.2 [facility] Comment on above: Performed By: #### B TRUST OFFICER, CMP ####[facility] [address] [place], [place] [address]Dr. Kasia Nath Sodium [Moles/Vol] 139 mmol/L Normal 136-145 [facility] Comment on above: Performed By: #### B TRUST OFFICER, CMP ####[facility] [address] [place], [place] [address]Dr. Kasia Nath Urea nitrogen [Mass/Vol] 24.0 mg/dL Critically high 7.0-18.0 [facility] Comment on above: Performed By: #### B TRUST OFFICER, CMP ####[facility] [address] [place], [place] [address]Dr. Kasia Nath Urea nitrogen/Creatinine [Mass ratio] 25.5 mg/mg Normal [facility] Comment on above: Performed By: #### B TRUST OFFICER, CMP ####[facility] [address] [address]Dr. Kasia Nath BNPon 01-01-2023 Natriuretic peptide B (Bld) [Mass/Vol] 1419.0 pg/mL Normal <=1,800.0 [facility] Comment on above: Performed By: #### B TRUST OFFICER #### [facility] [address] [place] [address] Dr. Kasia Nath CARDIAC EMERY 3-6on 3 CK [Catalytic activity/Vol] 80 U/L Normal 26-192 [facility] Comment on above: Performed By: #### P OCGLUC #### [facility] [address] [place] [address] Dr. Kasia Nath CK.MB [Mass/Vol] 1.85 ng/mL Normal <=3.60 [facility] Comment on above: Performed By: #### P OCGLUC #### [facility] [address] [place] [address] Dr. aKsia Nath HSTROP 13.2 pg/mL Normal 4.0-51.3 [facility] Comment on above: Result Comment: CUT- OFF POINTS HAVE BEEN ESTABLISHED BASED ON THE FOURTH UNIVERSAL DEFINITIONS OF MYOCARDIAL INFARCTION. THE UPPER REFERENCE LIMIT (URL) OF TROPONIN, DEFINED THE 99TH PERCENTILE OF cTnI DISTRIBUTION IN A REFERENCE POPULATION, HAS BEEN CONFIRMED THE DECISION THRESHOLD FOR [place] DIAGNOSIS. Performed By: #### P OCGLUC #### [facility] [address] [place] [address] Dr. Kasia Nath CK [Catalytic activity/Vol] 73 U/L Normal 26-192 [facility] Comment on above: Performed By: #### P OCGLUC #### [facility] [address] [place] [address] Dr. Kasia Nath CK.MB [Mass/Vol] 1.71 ng/mL Normal <=3.60 [facility] Comment on above: Performed By: #### P OCGLUC #### [facility] [address] [place] [address] Dr. Kasia Nath HSTROP 13.6 pg/mL Normal 4.0-51.3 [facility] Comment on above: Result Comment: CUT- OFF POINTS HAVE BEEN ESTABLISHED BASED ON THE FOURTH UNIVERSAL DEFINITIONS OF MYOCARDIAL INFARCTION. THE UPPER REFERENCE LIMIT (URL) OF TROPONIN, DEFINED THE 99TH PERCENTILE OF cTnI DISTRIBUTION IN A REFERENCE POPULATION, HAS BEEN CONFIRMED THE DECISION THRESHOLD FOR [place] DIAGNOSIS. Performed By: #### P OCGLUC #### [facility] [address] [place] [address] Dr. Kasia Nath CARDIAC EMERY ADMITon 023 CK [Catalytic activity/Vol] 71 U/L Normal 26-192 [facility] Comment on above: Performed By: #### C BC #### [facility] [address] [place] [address] Dr. Kasia Nath CK.MB [Mass/Vol] 1.69 ng/mL Normal <=3.60 [facility] Comment on above: Performed By: #### C BC #### [facility] [address] [place] [address] Dr. Kasia Nath HSTROP 13.0 pg/mL Normal 4.0-51.3 [facility] Comment on above: Result Comment: CUT- OFF POINTS HAVE BEEN ESTABLISHED BASED ON THE FOURTH UNIVERSAL DEFINITIONS OF MYOCARDIAL INFARCTION. THE UPPER REFERENCE LIMIT (URL) OF TROPONIN, DEFINED THE 99TH PERCENTILE OF cTnI DISTRIBUTION IN A REFERENCE POPULATION, HAS BEEN CONFIRMED THE DECISION THRESHOLD FOR [place] DIAGNOSIS. Performed By: #### C BC #### [facility] [address] [place] [address] Dr. Kasia Nath GRETTA 75 ng/mL Normal 9-82 [facility] Comment on above: Performed By: #### C BC #### [facility] [address] [place] [address] Dr. Kasia Nath CBC AUTO DIFFon 01-01-2023 BASO # 0.1 103/ul Normal 0.0-0.1 [facility] Comment on above: Performed By: #### C BC #### [facility] [address] [place] [address] Dr. Kasia Nath Basophils/100 WBC (Bld) 1.1 % Normal 0.2-2.0 [facility] Comment on above: Performed By: #### C BC #### [facility] [address] [place] [address] Dr. Kasia Nath EO # 0.2 103/ul Normal 0.0-0.7 [facility] Comment on above: Performed By: #### C BC #### [facility] [address] [place] [address] Dr. Kasia Nath Eosinophils/100 WBC (Bld) 2.9 % Normal 0.9-7.0 [facility] Comment on above: Performed By: #### C BC #### [facility] [address] [place] [address] Dr. Kasia Nath Erythrocyte distribution width (RBC) [Ratio] 13.8 % Normal 11.0-15.0 [facility] Comment on above: Performed By: #### C BC #### [facility] [address] [place] [address] Dr. Kasia Nath Hematocrit (Bld) [Volume fraction] 36.2 % Normal 36.0-48.0 [facility] Comment on above: Performed By: #### C BC #### [facility] [address] [place] [address] Dr. Kasia Nath Hemoglobin (Bld) [Mass/Vol] 12.1 g/dL Normal 12.0-16.0 [facility] Comment on above: Performed By: #### C BC #### [facility] [address] [place] [address] Dr. Kasia Nath IG # 0.02 10e3/ul Normal 0.00-0.03 [facility] Comment on above: Performed By: #### C BC #### [facility] [address] [place] [address] Dr. Kasia Nath IG % 0.3 % Normal 0.0-0.5 [facility] Comment on above: Performed By: #### C BC #### [facility] [address] [place] [address] Dr. Kasia Nath LYMPH # 1.5 103/ul Normal 1.2-3.8 [facility] Comment on above: Performed By: #### C BC #### [facility] [address] [place] [address] Dr. Kasia Nath Lymphocytes/100 WBC (Bld) 19.9 % Critically low 20.5-60.0 [facility] Comment on above: Performed By: #### C BC #### [facility] [address] [place] [address] Dr. Kasia Nath MANUAL DIFF REQ NO Normal [facility] Comment on above: Performed By: #### C BC #### [facility] [address] [place] [address] Dr. Kasia Nath MCH (RBC) [Entitic mass] 29.7 pg Normal 26.7-34.0 [facility] Comment on above: Performed By: #### C BC #### [facility] [address] [place] [address] Dr. Kasia Nath MCHC (RBC) [Mass/Vol] 33.4 g/dL Normal 29.9-35.2 [facility] Comment on above: Performed By: #### C BC #### [facility] [address] [place] [address] Dr. Kasia Nath MCV (RBC) [Entitic vol] 88.9 fL Normal 81.0-99.0 [facility] Comment on above: Performed By: #### C BC #### [facility] [address] [place] [address] Dr. Kasia Nath MONO # 0.6 103/ul Normal 0.3-0.8 [facility] Comment on above: Performed By: #### C BC #### [facility] [address] [place] [address] Dr. Kasia Nath Monocytes/100 WBC (Bld) 8.0 % Normal 1.7-12.0 [facility] Comment on above: Performed By: #### C BC #### [facility] [address] [place] [address] Dr. Kasia Nath NEUT # 5.1 103/ul Normal 1.4-6.5 [facility] Comment on above: Performed By: #### C BC #### [facility] [address] [place] [address] Dr. Kasia Nath Neutrophils/100 WBC (Bld) 67.8 % Normal 43.0-75.0 [facility] Comment on above: Performed By: #### C BC #### [facility] [address] [address] [address] Kasia Nath Platelet mean volume (Bld) [Entitic vol] 10.4 fL Normal 9.5-13.5 [facility] Comment on above: Performed By: #### C BC #### [facility] [address] [address] [address] Kasia Nath PLT 200 103/ul Normal 150-450 [facility] Comment on above: Performed By: #### C BC #### [facility] [address] [address] [address] Kasia Nath RBC 4.07 106/ul Critically low 4.20-5.40 [facility] Comment on above: Performed By: #### C BC #### [facility] [address] [address] [address] Kasia Nath WBC 7.5 103/ul Normal 4.0-11.0 [facility] Comment on above: Performed By: #### C BC #### [facility] [address] [place] [address] CHEST WO CONon [...] two extremes (Agatston score 101-1000). https://pubs.rsna.org /doi/abs/10.1148/radi ol.95124664 Electronically authenticated by: RENETTA MICHAELS Date: 2023-01-01 14:55 Normal [facility]-19 [facility]on 12-14 SARS-CoV-2 (COVID-19) RNA FERN+probe Ql (Unsp spec) Not detected Normal NOT DETECTED [facility] Comment on above: Result Comment: When diagnostic [...] for this test is supported by the [place] of Health and Human Service's declaration that [...] be used). Performed By: #### C [facility] #### [facility] [address] [address] [address] Kasia Nath ECHO LIMITED STUDYon 023 ECHO LIMITED STUDY Patient: SAIMA CALL Exam Date: 01/01/2023 : 1945 Gender:F Ordering : LD GUERRERO . Admission #: [id number] Family : Order #: [id number] CLICK HERE TO VIEW EXAM ECHOCARDIOGRAM REPORT [...] Kaplan M.D. on 01/01/2023 at 13:19 Normal [facility] GLYCOHEMOGLOBIN A1Con 2022 ADA RECOMMENDATION SEE BELOW Normal [facility] Comment on above: Result Comment: ADA RECOMMENDED LIMIT 4.0 - 6.0 ADA THERAPEUTIC TARGET < 7.0 ACTION SUGGESTED > 7.0 Performed By: #### P OCGLUC #### [facility] [address] [address] [address] Kasia Nath Glucose [Mass/Vol] 318 mg/dL Normal [facility] Comment on above: Performed By: #### P OCGLUC #### [facility] [address] [address] [address] Kasia Nath HbA1c (Bld) [Mass fraction] 12.7 % Critically high 4.5-6.2 [facility] Comment on above: Performed By: #### P OCGLUC #### [facility] [address] [address] [address] Kasia Nath POINT OF CARE GLUCOSEon 12-14 Glucose [Mass/Vol] 162 mg/dL Critically high -106 [facility] Comment on above: Performed By: #### P OCGLUC ####[facility] [id number] [address]. Kasia Nath Glucose [Mass/Vol] 213 mg/dL Critically high [facility]106 [facility] Comment on above: Performed By: #### P OCGLUC ####[facility] [id number] [address]Dr. Kasia Nath Glucose [Mass/Vol] 248 mg/dL Critically high [address] [place] [address] Comment on above: Performed By: #### P OCGLUC #### [facility] [address] [address] [address] Kasia Nath PROF CHEM 8 (BAS METB)on Anion gap [Moles/Vol] 11.8 mmol/L Normal [facility] Comment on above: Performed By: #### C BC #### [facility] [address] [address] [address] Kasia Nath Calcium [Mass/Vol] 8.4 mg/dL Critically low 8.5-10.1 [facility] Comment on above: Performed By: #### C BC #### [facility] [address] [address] [address] Kasia Nath Chloride [Moles/Vol] 102 mmol/L Normal 98-107 [facility] Comment on above: Performed By: #### C BC #### [facility] [address] [address] [address] Kasia Nath CO2 [Moles/Vol] 28.4 mmol/L Normal 21.0-32.0 [facility] Comment on above: Performed By: #### C BC #### [facility] [address] [address] [address] Kasia Nath Creatinine [Mass/Vol] 1.09 mg/dL Critically high 0.55-1.02 [facility] Comment on above: Performed By: #### C BC #### [facility] [address] [address] [address] Kasia Nath EGFR-AF CITIZ[place] 59 mL/min/1.73m2 Critically low >=60 [facility] Comment on above: Performed By: #### C BC #### [facility] [address] [address] [address] Kasia Nath EGFR-NON AF CITIZEN [place] 49 mL/min/1.73m2 Critically low >=60 [facility] Comment on above: Performed By: #### C BC #### [facility] [address] [address] [address] Kasia Nath Glucose [Mass/Vol] 247 mg/dL Critically high 74-106 [facility] Comment on above: Performed By: #### C BC #### [facility] [address] [address] [address] Kasia Nath Potassium [Moles/Vol] 4.2 mmol/L Normal 3.5-5.1 [facility] Comment on above: Performed By: #### C BC #### [facility] [address] [address] [address] Kasia Nath Sodium [Moles/Vol] 138 mmol/L Normal 136-145 [facility] Comment on above: Performed By: #### C BC #### [facility] [address] [address] [address] Kasia Nath Urea nitrogen [Mass/Vol] 28.0 mg/dL Critically high 7.0-18.0 [facility] Comment on above: Performed By: #### C BC #### [facility] [address] [place], [place] [address] Dr. Kasia Nath Urea nitrogen/Creatinine [Mass ratio] 25.7 mg/mg Normal [facility] Comment on above: Performed By: #### C BC #### [facility] [address] [place], [place] [address] Dr. Kasia Nath XR CHEST 1 Von [...] by: Miranda ALVAREZ Date: 2023-01-01 05:38 Normal [facility] ECHOCARDIO M/2D COMPLETEon 1 11-15-2021 ECHOCARDIO M/2D COMPLETE Patient: JOE CALL Exam Date: 09/15/2022 : 1945 Gender:F Ordering : [facility] Admission #: [id number] Family : DR SHANTEL STEVEN M.D. Order #: [id number] CLICK HERE TO VIEW EXAM ECHOCARDIOGRAM REPORT [...] M.D. on 09/15/2022 at 18:17 Normal [facility] GI PANEL (PCR)on 05-02-2022 Adenovirus F 40/41 Not detected Normal NOT DETECTED [facility] Comment on above: Performed By: #### P OCGLUC #### [facility] [address] [place] [address] Dr. Kasia Nath Astrovirus Not detected Normal NOT DETECTED [facility] Comment on above: Performed By: #### P OCGLUC #### [facility] [address] [place] [address] Dr. Kasia Nath C. Diff toxin A/B Not detected Normal NOT DETECTED [facility] Comment on above: Performed By: #### P OCGLUC #### [facility] [address] [place] [address] Dr. Kasia Nath Campylobacter Not detected Normal NOT DETECTED [facility] Comment on above: Performed By: #### P OCGLUC #### [facility] [address] [place] [address] Dr. Kasia Nath Cryptosporidium Not detected Normal NOT DETECTED [facility] Comment on above: Performed By: #### P OCGLUC #### [facility] [address] [place] [address] Dr. Kasia Nath Cyclos. Cayetanensis Not detected Normal NOT DETECTED [facility] Comment on above: Performed By: #### P OCGLUC #### [facility] [address] [place] [address] Dr. Kasia Nath E. Coli O157 Not Applicable Normal Not Applicable [facility] Comment on above: Performed By: #### P OCGLUC #### [facility] [address] [address] [address] Kasia Nath E. histolytica Not detected Normal NOT DETECTED [facility] Comment on above: Performed By: #### P OCGLUC #### [facility] [address] [address] [address] Kasia Nath EAEC Not detected Normal NOT DETECTED [facility] Comment on above: Performed By: #### P OCGLUC #### [facility] [address] [address] [address] Kasia Nath EIEC Not detected Normal NOT DETECTED [facility] Comment on above: Performed By: #### P OCGLUC #### [facility] [address] [address] [address] Kasia Nath EPEC Detected Abnormal NOT DETECTED [facility] Comment on above: Performed By: #### P OCGLUC #### [facility] [address] [address] [address] Kasia Nath ETEC Not detected Normal NOT DETECTED [facility] Comment on above: Performed By: #### P OCGLUC #### [facility] [address] [address] [address] Kasia Nath G. Lamblia Not detected Normal NOT DETECTED [facility] Comment on above: Performed By: #### P OCGLUC #### [facility] [address] [address] [address] Kasia PAKL CONTROLS PASSED Normal [facility] Comment on above: Performed By: #### P OCGLUC #### [facility] [address] [address] [address] Kasia THOMPSON JUNO HEADER GI PANEL BACTERIA Normal [facility] Comment on above: Performed By: #### P OCGLUC #### [facility] [address] [address] [address] Kasia THOMPSONHD ECOLI GI PANEL DIARRHEAGENIC E.COLI / SHIGELLA Normal [facility] Comment on above: Performed By: #### P OCGLUC #### [facility] [address] [address] [address] Kasia GE INFO SEE BELOW Normal [facility] Comment on above: Result Comment: EAEC - Enteroaggregative E. Coli EPEC- Enteropathogenic E. Coli ETEC- Enterotoxigenic E. Coli lt/st STEC- Shigella-like toxin-producing E. Coli stx1/stx2 EIEC- Shigella/Enteroinvasive E. Coli Performed By: #### P OCGLUC #### [facility] [address] [address] [address] Kasia GE PARASITES GI PANEL PARASITES Normal [facility] Comment on above: Performed By: #### P OCGLUC #### [facility] [address] [address] [address] Kasia GE VIRUS GI PANEL VIRUSES Normal [facility] Comment on above: Performed By: #### P OCGLUC #### [facility] [address] [address] [address] Kasia Nath Norovirus GI/GII Not detected Normal NOT DETECTED [facility] Comment on above: Performed By: #### P OCGLUC #### [facility] [address] [address] [address] Kasia Garland. Shigelloides Not detected Normal NOT DETECTED [facility] Comment on above: Performed By: #### P OCGLUC #### [facility] [address] [address] [address] Kasia Nath Rotavirus A Not detected Normal NOT DETECTED [facility] Comment on above: Performed By: #### P OCGLUC #### [facility] [address] [address] [address] Kasia Nath Salmonella Not detected Normal NOT DETECTED [facility] Comment on above: Performed By: #### P OCGLUC #### [facility] [address] [place] [address] Dr. Kasia Nath Sapovirus Not detected Normal NOT DETECTED [facility] Comment on above: Performed By: #### P OCGLUC #### [facility] [address] [address] [address] Kasia Nath STEC Not detected Normal NOT DETECTED [facility] Comment on above: Performed By: #### P OCGLUC #### [facility] [address] [address] [address] Kasia Nath Vibrio Not detected Normal NOT DETECTED [facility] Comment on above: Performed By: #### P OCGLUC #### [facility] [address] [address] [address] Kasia Nath Vibrio Cholera Not detected Normal NOT DETECTED [facility] Comment on above: Performed By: #### P OCGLUC #### [facility] [address] [address] [address] Kasia Nath Y. Enterocolitica Not detected Normal NOT DETECTED [facility] Comment on above: Performed By: #### P OCGLUC #### [facility] [address] [address] [address] Kasia Nath OCC BLD IMMUNO SCREENon 04-13 OCCULT BLOOD Negative Normal NEGATIVE [facility] Comment on above: Performed By: #### C BC #### [facility] [address] [address] [address] Kasia Nath XR knee BI 4Von 08-25-2021 XR knee BI 4V [facility] [employer] Other XR knee BI 4V [facility] [employer] Other XR knee BI 4V [address] [place] [address] [employer] Other XR knee BI 4V [address] [employer] Other XR knee BI 4V XRay Report [employer] Other XR knee BI 4V Signed [place] [employer] Other XR knee BI 4V Patient: Joe Call MR#: [id number] [facility] [employer] Other XR knee BI 4V 0 [place] [employer] Other XR knee BI 4V : 1945 Acct:[id number] [employer] Other XR knee BI 4V Age/Sex: 76 / F ADM Date: 08/25/21 [employer] Other XR knee BI 4V Loc: [facility] Room: Type : [facility] [employer] Other XR knee BI 4V Attending Dr: Akbar Cui II, MD [employer] Other XR knee BI 4V Ordering Provider: Akbar Cui MD [employer] Other XR knee BI 4V Date of Service: 08/25/21 [employer] Other XR knee BI 4V XR/XR knee BI 4V: Pain in right knee;Pain in left knee [employer] Other XR knee BI 4V Copies to: Akbar Cui MD [employer] Other XR knee BI 4V XR knee BI 4V 08/25/2021 1:32 PM [employer] Other XR knee BI 4V SIGNS AND SYMPTOMS: Bilateral knee pain with decreased range of motion, weakness [employer] Other XR knee BI 4V PROTOCOL: Frontal, lateral, and sunrise views of the bilateral knees [employer] Other XR knee BI 4V COMPARISON: None [employer] Other XR knee BI 4V FINDINGS: [employer] Other XR knee BI 4V There is mild narrowing of the medial weightbearing joint spaces. There is mild patellofemoral [employer] Other XR knee BI 4V joint space loss. There is spurring of the poles of the patella bilaterally. There is mild lateral [employer] Other XR knee BI 4V patellar subluxation bilaterally. There is no evidence of acute displaced fracture. Well-corticated [employer] Other XR knee BI 4V ossific structures o r separate from the right medial weightbearing joint space. This may represent a [employer] Other XR knee BI 4V calcified loose bodies. [employer] Other XR knee BI 4V XR/XR knee BI 4V [employer] Other XR knee BI 4V IMPRESSION: [employer] [facility] Other XR knee BI 4V Degenerative changes are noted are noted bilaterally, as above. [employer] Other XR knee BI 4V Well-corticated ossific structures or separate from the right medial weightbearing joint space. This [employer] Other XR knee BI 4V may represent a calcified loose bodies. [employer] Other XR knee BI 4V No acute displaced fracture. [employer] Other XR knee BI 4V There is mild latera l subluxation of the patella within the patellofemoral joint space bilaterally. [employer] Other XR knee BI 4V Impression dictated by: Emery Lobo M.D.08/25/2021 2:51 PM [employer] Other XR knee BI 4V Dictation Location: [place] [address] [employer] Other XR knee BI 4V Transcribed By: RAFAEL 08/25/21 [facility] [employer] Other XR knee BI 4V Dictated By: Emery Lobo II, MD 08/25/21 [facility] [employer] Other XR knee BI 4V Signed By: [employer] Other XR knee BI 4V 08/25/21 [employer] Other XR pelvis 1-2Von 08-25-2021 XR pelvis 1-2V XR/XR pelvis 1-2V: Pain in right knee;Pain in left knee [employer] Other XR pelvis 1-2V XR pelvis 1-2V 08/25/2021 1:32 PM [employer] Other XR pelvis 1-2V SIGNS AND SYMPTOMS: Bilateral generalized knee pain, limited range of motion with weakness [employer] Other XR pelvis 1-2V PROTOCOL: Frontal radiograph of the pelvis [employer] Other XR pelvis 1-2V There is mild narrowing of the weightbearing joint spaces. Mild degenerative changes are noted in [employer] Other XR pelvis 1-2V the symphysis pubis. There is no evidence of fracture or dislocation. Vascular calcifications are [employer] Other XR pelvis 1-2V present in the pelvis. [employer] Other XR pelvis 1-2V XR/XR pelvis 1-2V [employer] Other XR pelvis 1-2V No fracture or dislocation. [employer] Other XR pelvis 1-2V Mild degenerative changes are noted in the joint space of the hips. [employer] Other XR pelvis 1-2V Impression dictated by: Emery Lobo M.D.08/25/2021 2:54 PM [employer] Other XR pelvis 1-2V Transcribed By: PWS 08/25/21 [facility] [employer] Other XR pelvis 1-2V Dictated By: Emery Lobo II, MD 08/25/21 [facility] [employer] Other XR pelvis 1-2V 08/25/21 [facility] [employer] Other Vital Signs Date Time Vital Sign Value Performing Clinician Facility 07-16-2024 10:20-0400 Body height 165.1 cm MD Shantel Steven Work Phone: [facility] 07-16-2024 10:20-0400 Body mass index (BMI) [Ratio] 43.1 kg/m2 MD Shantel Steven Work Phone: [facility] 07-16-2024 10:20-0400 Body weight 117.48 kg MD Shantel Steven Work Phone: [facility] 07-16-2024 10:20-0400 Diastolic blood pressure 80 mm[Hg] MD Shantel Steven Work Phone: [facility] 07-16-2024 10:20-0400 Heart rate 60 /min MD Shantel Steven Work Phone: [facility] 07-16-2024 10:20-0400 Systolic blood pressure 151 mm[Hg] MD Shantel Steven Work Phone: [facility] 07-07-2024 11:41-0400 Body height 165.1 cm MD Shantel Steven Work Phone: [facility] 07-07-2024 11:41-0400 Body mass index (BMI) [Ratio] 42.4 kg/m2 MD Shantel Steven Work Phone: [facility] 07-07-2024 11:41-0400 Body weight 115.66 kg MD Shantel Steven Work Phone: [facility] 07-07-2024 11:41-0400 Diastolic blood pressure 79 mm[Hg] MD Shantel Steven Work Phone: [facility] 07-07-2024 11:41-0400 Heart rate 66 /min MD Shantel Steven Work Phone: [facility] 07-07-2024 11:41-0400 Systolic blood pressure 132 mm[Hg] MD Shantel Steven Work Phone: [facility] 06-16-2024 13:08-0400 Body height 165.1 cm MD Shantel Steven Work Phone: [facility] 06-16-2024 13:08-0400 Body mass index (BMI) [Ratio] 41.9 kg/m2 MD Shantel Steven Work Phone: [facility] 06-16-2024 13:08-0400 Body weight 114.3 kg MD Shantel Steven Work Phone: [facility] 06-16-2024 13:08-0400 Diastolic blood pressure 73 mm[Hg] MD Shantel Steven Work Phone: [facility] 06-16-2024 13:08-0400 Heart rate 55 /min MD Shantel Steven Work Phone: [facility] 06-16-2024 13:08-0400 Systolic blood pressure 137 mm[Hg] MD Shantel Steven Work Phone: [facility] 06-05-2024 11:51-0400 Body height 165.1 cm MD Shantel Steven Work Phone: [facility] 06-05-2024 11:51-0400 Body mass index (BMI) [Ratio] 43.2 kg/m2 MD Shantel Steven Work Phone: [facility] 06-05-2024 11:51-0400 Body temperature 96.6 [degF] MD Shantel Steven Work Phone: [facility] 06-05-2024 11:51-0400 Body weight 117.7 kg MD Shantel Steven Work Phone: [facility] 06-05-2024 11:51-0400 Diastolic blood pressure 74 mm[Hg] MD Shantel Steven Work Phone: [facility] 06-05-2024 11:51-0400 Heart rate 63 /min MD Shantel Steven Work Phone: [facility] 06-05-2024 11:51-0400 Respiratory rate 18 /min MD Shantel Steven Work Phone: [facility] 06-05-2024 11:51-0400 SaO2% (BldA) [Mass fraction] 97 % MD Shantel Steven Work Phone: [facility] 06-05-2024 11:51-0400 Systolic blood pressure 138 mm[Hg] MD Shantel Steven Work Phone: [facility] 05-22-2024 09:18-0400 Heart rate 55 /min MD Shantel Steven Work Phone: [facility] 05-22-2024 09:09-0400 Body temperature 97.8 [degF] MD Shantel Steven Work Phone: [facility] 05-22-2024 09:09-0400 Diastolic blood pressure 64 mm[Hg] MD Shantel Steven Work Phone: [facility] 05-22-2024 09:09-0400 Respiratory rate 22 /min MD Shantel Steven Work Phone: [facility] 05-22-2024 09:09-0400 SaO2% (BldA) [Mass fraction] 94 % MD Shantel Steven Work Phone: [facility] 05-22-2024 09:09-0400 Systolic blood pressure 140 mm[Hg] MD Shantel Steven Work Phone: [facility] 05-22-2024 09:08-0400 Body height 165.1 cm MD Shantel Steven Work Phone: [facility] 05-22-2024 09:08-0400 Body weight 117.48 kg MD Shantel Steven Work Phone: [facility] 05-19-2024 14:16-0400 Body height 165.1 cm MD Shantel Steven Work Phone: [facility] 05-19-2024 14:16-0400 Body mass index (BMI) [Ratio] 43.1 kg/m2 MD Shantel Steven Work Phone: [facility] 05-19-2024 14:16-0400 Body weight 117.48 kg MD Shantel Steven Work Phone: [facility] 05-19-2024 14:16-0400 Diastolic blood pressure 72 mm[Hg] MD Shantel Steven Work Phone: [facility] 05-19-2024 14:16-0400 Heart rate 56 /min MD Shantel Steven Work Phone: [facility] 05-19-2024 14:16-0400 Systolic blood pressure 133 mm[Hg] MD Shantel Steven Work Phone: [facility] 05-07-2024 11:52-0400 Body height 165.1 cm MD Shantel Steven Work Phone: [facility] 05-07-2024 11:52-0400 Body mass index (BMI) [Ratio] 41.5 kg/m2 MD Shantel Steven Work Phone: [facility] 05-07-2024 11:52-0400 Body temperature 98.5 [degF] MD Shantel Steven Work Phone: [facility] 05-07-2024 11:52-0400 Body weight 113.39 kg MD Shantel Steven Work Phone: [facility] 05-07-2024 11:52-0400 Diastolic blood pressure 81 mm[Hg] MD Shantel Steven Work Phone: [facility] 05-07-2024 11:52-0400 Heart rate 91 /min MD Shantel Steven Work Phone: [facility] 05-07-2024 11:52-0400 Systolic blood pressure 141 mm[Hg] MD Shantel Steven Work Phone: [facility] 04-29-2024 12:54-0400 Body height 165.1 cm MD Shantel Steven Work Phone: [facility] 04-29-2024 12:54-0400 Body mass index (BMI) [Ratio] 41.5 kg/m2 MD Shantel Steven Work Phone: [facility] 04-29-2024 12:54-0400 Body weight 113.39 kg MD Shantel Steven Work Phone: [facility] 04-29-2024 12:54-0400 Diastolic blood pressure 58 mm[Hg] MD Shantel Steven Work Phone: [facility] 04-29-2024 12:54-0400 Heart rate 54 /min MD Shantel Steven Work Phone: [facility] 04-29-2024 12:54-0400 Systolic blood pressure 90 mm[Hg] MD Shantel Steven Work Phone: [facility] 04-03-2024 11:29-0400 Body height 165.1 cm MD Shantel Steven Work Phone: [facility] 04-03-2024 11:29-0400 Body mass index (BMI) [Ratio] 43.7 kg/m2 MD Shantel Steven Work Phone: [facility] 04-03-2024 11:29-0400 Body weight 119.29 kg MD Shantel Steven Work Phone: [facility] 04-03-2024 11:29-0400 Diastolic blood pressure 71 mm[Hg] MD Shantel Steven Work Phone: [facility] 04-03-2024 11:29-0400 Heart rate 56 /min MD Shantel Steven Work Phone: [facility] 04-03-2024 11:29-0400 Systolic blood pressure 116 mm[Hg] MD Shantel Steven Work Phone: [facility] 03-25-2024 15:15-0400 Body height 165.1 cm MD Shantel Steven Work Phone: [facility] 03-25-2024 15:15-0400 Body mass index (BMI) [Ratio] 43.9 kg/m2 MD Shantel Steven Work Phone: [facility] 03-25-2024 15:15-0400 Body weight 119.74 kg MD Shantel Steven Work Phone: [facility] 03-25-2024 15:15-0400 Diastolic blood pressure 87 mm[Hg] MD Shantel Steven Work Phone: [facility] 03-25-2024 15:15-0400 Heart rate 66 /min MD Shantel Steven Work Phone: [facility] 03-25-2024 15:15-0400 Systolic blood pressure 125 mm[Hg] MD Shantel Steven Work Phone: [facility] 02-15-2024 14:18-0400 Body height 165.1 cm [facility] 02-15-2024 14:18-0400 Body mass index (BMI) [Ratio] 38.6 kg/m2 [facility] 02-15-2024 14:18-0400 Body weight 105.23 kg [facility] 02-15-2024 14:18-0400 Diastolic blood pressure 66 mm[Hg] [facility] 02-15-2024 14:18-0400 Heart rate 55 /min [facility] 02-15-2024 14:18-0400 Systolic blood pressure 114 mm[Hg] [facility] 01-18-2024 10:23-0500 Body height 165.1 cm [facility] 01-18-2024 10:23-0500 Body mass index (BMI) [Ratio] 43.2 kg/m2 [facility] 01-18-2024 10:23-0500 Body weight 117.93 kg [facility] 01-18-2024 10:23-0500 Diastolic blood pressure 70 mm[Hg] [facility] 01-18-2024 10:23-0500 Heart rate 98 /min [facility] 01-18-2024 10:23-0500 SaO2% (BldA) [Mass fraction] 65 % [facility] 01-18-2024 10:23-0500 Systolic blood pressure 110 mm[Hg] [facility] 10-23-2023 16:00-0500 Body height 165.1 cm Jaleesa Vanessa Other [facility] Other 10-23-2023 16:00-0500 Body mass index (BMI) [Ratio] 44.63 kg/m2 Jaleesa Vanessa Other [facility] Other 10-23-2023 16:00-0500 Body temperature 96.8 [degF] Jaleesa Kochs Other [facility] Other 10-23-2023 16:00-0500 Body weight 121.66 kg Jaleesa Vanessa Other [facility] Other 10-23-2023 16:00-0500 Diastolic blood pressure 60 mm[Hg] Jaleesa Kochs Other [facility] Other 10-23-2023 16:00-0500 Respiratory rate 18 /min Jaleesa Vanessa Other [facility] Other 10-23-2023 16:00-0500 SaO2% (BldA) [Mass fraction] 99 % Jaleesa Vanessa Other [facility] Other 10-23-2023 16:00-0500 Systolic blood pressure 124 mm[Hg] Jaleesa Kochs Other [facility] Other 10-18-2023 13:45-0500 Body height 165.1 cm Shantel Steven Other [facility] Other 10-18-2023 13:45-0500 Body mass index (BMI) [Ratio] 44.86 kg/m2 Shantel Steven Other [facility] Other 10-18-2023 13:45-0500 Body temperature 97.3 [degF] Shantel Steven Other [facility] Other 10-18-2023 13:45-0500 Body weight 122.29 kg Shantel Steven Other [facility] Other 10-18-2023 13:45-0500 Diastolic blood pressure 84 mm[Hg] Shantel Steven Other [facility] Other 10-18-2023 13:45-0500 SaO2% (BldA) [Mass fraction] 97 % Sahntel Steven Other [facility] Other 10-18-2023 13:45-0500 Systolic blood pressure 132 mm[Hg] Shantel Steven Other [facility] Other 09-04-2023 14:00-0400 Body height 165.1 cm Shantel Steven Other [facility] Other 09-04-2023 14:00-0400 Body mass index (BMI) [Ratio] 43.06 kg/m2 Shantel Steven Other [facility] Other 09-04-2023 14:00-0400 Body weight 117.39 kg Shantel Steven Other [facility] Other 09-04-2023 14:00-0400 Diastolic blood pressure 69 mm[Hg] Shantel Steven Other [facility] Other 09-04-2023 14:00-0400 Systolic blood pressure 127 mm[Hg] Shantel Steven Other [facility] Other 07-17-2023 10:00-0400 Body height 165.1 cm Shantel Steven Other [facility] Other 07-17-2023 10:00-0400 Body mass index (BMI) [Ratio] 43.03 kg/m2 Shantel Steven Other [facility] Other 07-17-2023 10:00-0400 Body weight 117.3 kg Shantel Steven Other [facility] Other 07-17-2023 10:00-0400 Diastolic blood pressure 76 mm[Hg] Shantel Steven Other [facility] Other 07-17-2023 10:00-0400 Systolic blood pressure 164 mm[Hg] Shantel Steven Other [facility] Other 04-30-2023 14:30-0400 Body height 165.1 cm Shantel Steven Other [facility] Other 04-30-2023 14:30-0400 Body mass index (BMI) [Ratio] 43.43 kg/m2 Shantel Steven Other [facility] Other 04-30-2023 14:30-0400 Body weight 118.39 kg Shantel Steven Other [facility] Other 04-30-2023 14:30-0400 Diastolic blood pressure 75 mm[Hg] Shantel Steven Other [facility] Other 04-30-2023 14:30-0400 Systolic blood pressure 135 mm[Hg] Shantel Steven Other [facility] Other 03-09-2023 12:15-0400 Body height 165.1 cm Shantel Steven Other [facility] Other 03-09-2023 12:15-0400 Body mass index (BMI) [Ratio] 43.59 kg/m2 Shantel Steven Other [facility] Other 03-09-2023 12:15-0400 Body weight 118.84 kg Shantel Steven Other [facility] Other 03-09-2023 12:15-0400 Diastolic blood pressure 82 mm[Hg] Shantel Steven Other [facility] Other 03-09-2023 12:15-0400 SaO2% (BldA) [Mass fraction] 97 % Shantel Steven Other [facility] Other 03-09-2023 12:15-0400 Systolic blood pressure 130 mm[Hg] Shantel Steven Other [facility] Other 02-20-2023 10:00-0400 Body height 165.1 cm Shantel Steven Other [facility] Other 02-20-2023 10:00-0400 Body mass index (BMI) [Ratio] 41.93 kg/m2 Shantel Steven Other [facility] Other 02-20-2023 10:00-0400 Body weight 114.31 kg Shantel Steven Other [facility] Other 02-20-2023 10:00-0400 Diastolic blood pressure 84 mm[Hg] Shantel Steven Other [facility] Other 02-20-2023 10:00-0400 Systolic blood pressure 132 mm[Hg] Shantel Steven Other [facility] Other 08-04-2022 13:33-0400 Blood Pressure Location Bin SORENSON [facility] [place] 08-04-2022 13:33-0400 Diastolic blood pressure 88 mm[Hg] Bin SORENSON [facility] [place] 08-04-2022 13:33-0400 Heart rate 76 /min Bin POPL [facility] [place] 08-04-2022 13:33-0400 Respiratory rate 16 /min Bin SORENSON [facility] [place] 08-04-2022 13:33-0400 Systolic blood pressure 130 mm[Hg] Bin POPL [facility] [place] 08-25-2021 14:30-0400 Body height 165.1 cm [facility] Other [facility] Other 08-25-2021 14:30-0400 Body mass index (BMI) [Ratio] 43.26 kg/m2 [facility] Other [facility] Other 08-25-2021 14:30-0400 Body weight 117.94 kg [facility] Other [facility] Other Encounters Encounter Date Encounter Type Care Provider Facility Start: 07-22-2024 End: 07-22-2024 ambulatory CHRISTEL CHACON Not Available Start: 07-17-2024 End: 07-17-2024 ambulatory MD Shantel Steven Work Phone: [facility] Work Phone: Start: 07-17-2024 End: 07-17-2024 MD Shantel Steven Work Phone: [facility] Work Phone: Start: 07-16-2024 End: 07-16-2024 ambulatory MD Shantel Steven Work Phone: [facility] Work Phone: Start: 07-16-2024 End: 07-16-2024 Patient encounter procedure MD Shantel Steven Work Phone: [facility] Work Phone: Start: 07-16-2024 End: 07-16-2024 MD Shantel Steven Work Phone: [facility] Work Phone: Start: 07-15-2024 Non-patient / Non-visit MD Alessia Steven Work Phone: [facility] Work Phone: Start: 07-15-2024 MD Shantel painting Work Phone: [facility] Work Phone: Start: 07-14-2024 Non-patient / Non-visit MD Alessia Steven Work Phone: [facility] Work Phone: Start: 07-14-2024 MD Shantel painting Work Phone: [facility] Work Phone: Start: 07-10-2024 End: 07-10-2024 ambulatory TEODORA WOODARDIRVING Not Available Start: 07-07-2024 End: 07-07-2024 ambulatory MD Shantel Steven Work Phone: [facility] Work Phone: Start: 07-07-2024 End: 07-07-2024 Patient encounter procedure MD Shantel Steven Work Phone: [facility] Work Phone: Start: 07-07-2024 End: 07-07-2024 MD Shantel Steven Work Phone: [facility] Work Phone: Start: 06-25-2024 ambulatory MD Shantel gray Work Phone: [facility] Work Phone: Start: 06-25-2024 Non-patient / Non-visit MD Alessia Steven Work Phone: [facility] Work Phone: Start: 06-25-2024 MD Shantel painting Work Phone: [facility] Work Phone: Start: 06-24-2024 Non-patient / Non-visit MD Alessia Steven Work Phone: [facility] Work Phone: Start: 06-24-2024 MD Shantel painting Work Phone: [facility] Work Phone: Start: 06-18-2024 End: 06-18-2024 ambulatory [facility] Start: 06-16-2024 End: 06-16-2024 ambulatory MD Shantel Steven Work Phone: [facility] Work Phone: Start: 06-16-2024 End: 06-16-2024 Patient encounter procedure MD Shantel Steven Work Phone: [facility] Work Phone: Start: 06-16-2024 End: 06-16-2024 MD Shantel Steven Work Phone: [facility] Work Phone: Start: 06-10-2024 Non-patient / Non-visit MD Alessia Steven Work Phone: [facility] Work Phone: Start: 06-10-2024 MD Shantel painting Work Phone: [facility] Work Phone: Start: 06-09-2024 Non-patient / Non-visit MD Alessia Steven Work Phone: [facility] Work Phone: Start: 06-09-2024 MD Shantel painting Work Phone: [facility] Work Phone: Start: 06-05-2024 End: 06-05-2024 ambulatory MD Shantel Steven Work Phone: [facility] Work Phone: Start: 06-05-2024 End: 06-05-2024 Patient encounter procedure MD Shantel Steven Work Phone: [facility] Work Phone: Start: 06-05-2024 End: 06-05-2024 MD Shantel Steven Work Phone: [facility] Work Phone: Start: 06-01-2024 Non-patient / Non-visit MD Alessia Steven Work Phone: [facility] Work Phone: Start: 06-01-2024 MD Shantel painting Work Phone: [facility] Work Phone: Start: 05-26-2024 Non-patient / Non-visit MD Alessia Steven Work Phone: [facility] Work Phone: Start: 05-26-2024 MD Shantel painting Work Phone: [facility] Work Phone: Start: 05-22-2024 End: 05-22-2024 Emergency department patient visit MD Shantel Steven Work Phone: [facility] Work Phone: Start: 05-22-2024 End: 05-22-2024 MD Shantel Steven Work Phone: [facility] Work Phone: Start: 05-20-2024 Non-patient / Non-visit MD Alessia Steven Work Phone: [facility] Work Phone: Start: 05-20-2024 MD Shantel painting Work Phone: [facility] Work Phone: Start: 05-20-2024 End: 05-20-2024 ambulatory [facility] Start: 05-19-2024 End: 05-19-2024 ambulatory MD Shantel Steven Work Phone: [facility] Work Phone: Start: 05-19-2024 End: 05-19-2024 Patient encounter procedure MD Shantel Steven Work Phone: [facility] Work Phone: Start: 05-19-2024 End: 05-19-2024 MD Shantel Steven Work Phone: [facility] Work Phone: Start: 05-07-2024 End: 05-07-2024 ambulatory MD Shantel Steven Work Phone: [facility] Work Phone: Start: 05-07-2024 End: 05-07-2024 Patient encounter procedure MD Shantel Steven Work Phone: [facility] Work Phone: Start: 05-07-2024 End: 05-07-2024 MD Shantel Steven Work Phone: [facility] Work Phone: Start: 05-06-2024 Non-patient / Non-visit MD Alessia Steven Work Phone: [facility] Work Phone: Start: 05-06-2024 MD Shantel painting Work Phone: [facility] Work Phone: Start: 05-05-2024 Non-patient / Non-visit MD Alessia Steven Work Phone: [facility] Work Phone: Start: 05-05-2024 MD Shantel painting Work Phone: [facility] Work Phone: Start: 05-04-2024 End: 05-06-2024 Non-patient / Non-visit MD Shantel Steven Work Phone: [facility] Work Phone: Start: 05-04-2024 End: 05-06-2024 MD Shantel Steven Work Phone: [facility] Work Phone: Start: 05-04-2024 Non-patient / Non-visit MD Alessia Steven Work Phone: [facility] Work Phone: Start: 05-04-2024 MD Shantel painting Work Phone: [facility] Work Phone: Start: 05-02-2024 Non-patient / Non-visit MD Alessia Steven Work Phone: [facility] Work Phone: Start: 05-02-2024 MD Shantel painting Work Phone: [facility] Work Phone: Start: 05-01-2024 Non-patient / Non-visit MD Alessia Steven Work Phone: [facility] Work Phone: Start: 05-01-2024 MD Shantel painting Work Phone: [facility] Work Phone: Start: 04-30-2024 Non-patient / Non-visit MD Alessia Steven Work Phone: [facility] Work Phone: Start: 04-30-2024 MD Shantel painting Work Phone: [facility] Work Phone: Start: 04-30-2024 Non-patient / Non-visit MD Alessia Steven Work Phone: [facility] Work Phone: Start: 04-30-2024 MD Shantel painting Work Phone: [facility] Work Phone: Start: 04-29-2024 End: 04-29-2024 Patient encounter procedure MD Shantel Steven Work Phone: [facility] Work Phone: Start: 04-29-2024 End: 04-29-2024 MD Shantel Steven Work Phone: [facility] Work Phone: Start: 04-03-2024 End: 04-03-2024 ambulatory MD Shantel Steven Work Phone: [facility] Work Phone: Start: 04-03-2024 End: 04-03-2024 Patient encounter procedure MD Shantel Steven Work Phone: [facility] Work Phone: Start: 04-03-2024 End: 04-03-2024 MD Shantel Steven Work Phone: [facility] Work Phone: Start: 04-01-2024 Non-patient / Non-visit MD Alessia Steven Work Phone: [facility] Work Phone: Start: 04-01-2024 MD Shantel painting Work Phone: [facility] Work Phone: Start: 03-31-2024 Non-patient / Non-visit MD Alessia Steven Work Phone: [facility] Work Phone: Start: 03-31-2024 MD Shantel painting Work Phone: [facility] Work Phone: Start: 03-28-2024 Non-patient / Non-visit MD Alessia Steven Work Phone: [facility] Work Phone: Start: 03-28-2024 MD Shantel painting Work Phone: [facility] Work Phone: Start: 03-27-2024 Non-patient / Non-visit MD Alessia Steven Work Phone: [facility] Work Phone: Start: 03-27-2024 MD Shantel painting Work Phone: [facility] Work Phone: Start: 03-26-2024 Non-patient / Non-visit MD Alessia Steven Work Phone: [facility] Work Phone: Start: 03-26-2024 MD Shantel painting Work Phone: [facility] Work Phone: Start: 03-25-2024 End: 03-25-2024 Patient encounter procedure MD Shantel Steven Work Phone: [facility] Work Phone: Start: 03-25-2024 End: 03-25-2024 MD Shantel Steven Work Phone: [facility] Work Phone: Start: 03-13-2024 End: 03-13-2024 Patient encounter procedure MD Shantel Steven Work Phone: [facility] [address] Work Phone: Start: 03-13-2024 End: 03-13-2024 ambulatory MD Shantel Steven Work Phone: [facility] Work Phone: Start: 03-07-2024 End: 03-07-2024 ambulatory [facility] Start: 02-19-2024 ambulatory Facility:[facility] Start: 02-15-2024 End: 02-15-2024 ambulatory [facility] Work Phone: Start: 02-15-2024 End: 02-15-2024 Patient encounter procedure [facility] Work Phone: Start: 01-29-2024 Non-patient / Non-visit [facility] Work Phone: Start: 01-24-2024 Non-patient / Non-visit [facility] Work Phone: Start: 01-22-2024 Non-patient / Non-visit [facility] Work Phone: Start: 01-18-2024 End: 01-18-2024 Patient encounter procedure [facility] Work Phone: Start: 01-15-2024 Non-patient / Non-visit [facility] Work Phone: Start: 01-04-2024 Non-patient / Non-visit [facility] Work Phone: Start: 12-18-2023 End: 12-18-2023 ambulatory Shantel Tenisha Other [facility] Other Start: 12-18-2023 Telephone encounter Shantel Tenisha [facility] Start: 11-19-2023 End: 11-19-2023 ambulatory Shantel Tenisha Other [facility] Other Start: 11-19-2023 Telephone encounter Shantel Tenisha [facility] Start: 10-23-2023 End: 10-23-2023 ambulatory Néstorghassan Nhungloves Other [facility] Other Start: 10-23-2023 Office outpatient ne w 30 minutes Azghassan Nhungloves [facility] Start: 10-22-2023 End: 10-22-2023 ambulatory Shantel Tenisha Other [facility] Other Start: 10-22-2023 Telephone encounter Shantel Steven [facility] Start: 10-18-2023 End: 10-18-2023 ambulatory Shantel Tenisha Other [facility] Other Start: 10-18-2023 Office outpatient vi sit 15 minutes Shantel Tenisha [facility] Start: 09-07-2023 End: 09-07-2023 ambulatory Shantel Tenisha Other [facility] Other Start: 09-07-2023 Telephone encounter Shantel Steven [facility] Start: 09-04-2023 End: 09-04-2023 ambulatory Shantel Steven Other [facility] Other Start: 09-04-2023 Office outpatient vi sit 25 minutes Shantel Tenisha [facility] Start: 08-23-2023 End: 08-23-2023 ambulatory Shantelangelito Steven Other [facility] Other Start: 08-23-2023 Telephone encounter Shantel Steven [facility] Start: 08-17-2023 End: 08-17-2023 ambulatory [facility] Start: 07-23-2023 Telephone encounter Shantel Steven [facility] Start: 07-23-2023 End: 07-23-2023 ambulatory [facility] Other Start: 07-17-2023 End: 07-17-2023 ambulatory Shantel Tenisha Other [facility] Other Start: 07-17-2023 Office outpatient vi sit 25 minutes Shantel Tenisha [facility] Start: 05-30-2023 End: 05-30-2023 ambulatory Shantel Tenisha Other [facility] Other Start: 05-30-2023 Telephone encounter Shantel Steven [facility] Start: 05-22-2023 End: 05-22-2023 ambulatory Shantel Tenisha Other [facility] Other Start: 05-22-2023 Telephone encounter Shantel Steven [facility] Start: 05-16-2023 End: 05-16-2023 ambulatory Shantel Tenisha Other [facility] Other Start: 05-16-2023 Telephone encounter Shantel Steven [facility] Start: 05-07-2023 End: 05-07-2023 ambulatory Shantel Tenisha Other [facility] Other Start: 05-07-2023 Telephone encounter Shantel Steven [facility] Start: 04-30-2023 End: 04-30-2023 ambulatory Shantel Steven Other [facility] Other Start: 04-30-2023 Office outpatient vi sit 25 minutes Shantel Tenisha [facility] Start: 04-25-2023 End: 04-25-2023 ambulatory Shantel Steven Other [facility] Other Start: 04-25-2023 Telephone encounter Shantel Steven [facility] Start: 04-12-2023 End: 04-12-2023 ambulatory Shantel Steven Other [facility] Other Start: 04-12-2023 Telephone encounter Shantel Steven [facility] Start: 03-09-2023 End: 03-09-2023 ambulatory Shantel Steven Other [facility] Other Start: 03-09-2023 Office outpatient vi sit 15 minutes Shantel Steven [facility] Start: 03-07-2023 End: 03-07-2023 ambulatory Shantel Steven Other [facility] Other Start: 03-07-2023 Telephone encounter Shantel Steven [facility] Start: 03-06-2023 End: 03-06-[address] SHANTEL STEVEN Facility:[facility] Start: 03-05-2023 End: 03-05-2023 ambulatory Shantel Steven Other [facility] Other Start: 03-05-2023 Telephone encounter Shantel Steven [facility] Start: 02-26-2023 End: 02-26-2023 ambulatory Shantel Steven Other [facility] Other Start: 02-26-2023 Telephone encounter Shantel Steven [facility] Start: 02-24-2023 End: 02-24-[address] SHANTEL STEVEN Facility:[facility] Start: 02-23-2023 End: 02-23-2023 ambulatory Shantel Steven Other [facility] Other Start: 02-23-2023 Telephone encounter Shantel Steven [facility] Start: 02-20-2023 End: 02-20-2023 ambulatory Shantel Steven Other [facility] Other Start: 02-20-2023 Transitional care nd misha srvc 14 day discharge Shantel Steven [facility] Start: 02-16-2023 End: 02-16-2023 ambulatory Shantel Steven Other [facility] Other Start: 02-16-2023 Telephone encounter Shantel Steven [facility] Start: 02-13-2023 End: 02-14-[address] SHANTEL STEVEN Facility:[facility] Start: 02-02-2023 End: 02-02-2023 ambulatory Shantel Steven Other [facility] Other Start: 02-02-2023 Telephone encounter Shantel Steven [facility] Start: 01-16-2023 End: 01-17-[address] DOCTOR CARMONA Facility:[facility] Start: 01-05-2023 End: 01-05-2023 ambulatory BIN ROJAS Facility:[facility] Start: 01-01-2023 End: 01-02-2023 ambulatory ANALISA BRYANT Facility:[facility] Start: 11-29-2022 End: 11-29-2022 ambulatory Shantel Steven Other [facility] Other Start: 11-29-2022 Telephone encounter Shantel Steven [facility] Start: 11-27-2022 End: 11-27-2022 ambulatory Shantel Steven Other [facility] Other Start: 11-27-2022 Telephone encounter Shantel Steven [facility] Start: 11-24-2022 End: 11-24-2022 ambulatory Shantel Steven Other [facility] Other Start: 11-24-2022 Telephone encounter Shantel Steven [facility] Start: 11-06-2022 ambulatory YAMEL MCCRACKEN Facility :[facility] Start: 09-15-2022 End: 09-16-[address] SHANTEL STEVEN Facility:[facility] Start: 08-04-2022 End: 08-04-2022 Patient encounter procedure Bin Beckie NILL [facility] [place] Start: 05-02-2022 End: 05-02-[address] SHANTEL STEVEN Facility: Start: 08-25-2021 Office outpatient ne w 45 minutes Akbar Cui II [facility] Start: 08-09-2017 End: 08-12-2017 Ambulatory PROVIDER UNKNOWN Facility:[facility] Procedures Date Procedure Procedure Detail Performing [...] Bin NILL History of sigmoid colectomy Bin POPHiren Total abdominal hyst erectomy with bilateral salpingo-oophorectomy Bin YAS Plan of Treatment Date Care Activity Detail Author Start: 07-17-2024 Bacteria identified in Urine by Culture [facility] Start: 07-17-2024 [facility] Start: 06-25-2024 Patient referral [facility] Work Phone: Start: 06-16-2024 Patient referral [facility] Work Phone: Start: 05-07-2024 Patient referral [facility] Work Phone: Start: 05-04-2024 Blood Culture 1 Blood Culture 1 [facility] Start: 02-15-2024 [facility] [facility] Work Phone: Comprehensive metabo lic 2000 panel - Serum or Plasma [facility] CT Abdomen and Pelvi s WO contrast [facility] Microalbumin [Mass/v olume] in Urine [facility] Patient referral [facility] Work Phone: Renal function 2000 panel - Serum or Plasma [facility] US [facility] Immunizations Immunization Date Immunization Notes Care Provider Fa cility 01-18-2024 Pneumococcal Conjugate Vaccine, 20 valent [facility] 09-04-2023 influenza, high dose seasonal, preservative-free Shantel Steven Other [facility] Other 09-04-2023 influenza virus vaccine, unspecified formulation [facility] 02-04-2021 COVID-19 mRNA, Comirnaty (Pfizer) [facility] 01-21-2021 COVID-19 mRNA, Comirnaty (Pfizer) [facility] 10-09-2018 influenza virus vaccine, split virus (incl. purified surface antigen) Shantel Steven Other [facility] Other 10-09-2018 influenza virus vaccine, unspecified formulation [facility] NEGATED: Highlighted row has not occurred!08-21-2019 influenza virus vaccine, split virus (incl. purified surface antigen) Shantel Steven Other [facility] Other Payers Date Payer Category Payer Self-pay [id number] 1958 Medicare [id number] 2.16. [id number] 1958 Self-pay [id number] 1945 Unknown [id number] 2.16.84 0.1.291979.3.579.2.593 1945 Unknown [id number] 2.16.84 0.1.473641.3.579.2.593 1945 Unknown [id number] 2.16.84 0.1.570892.3.579.2.593 1946 Unknown [id number] 2.16.84 0.1.192654.3.579.2.593 1946 Unknown [id number] 2.16.84 0.1.080639.3.579.2.593 1946 Unknown [id number] 2.16.84 0.1.673656.3.579.2.593 1946 Unknown [id number] 2.16.84 0.1.705557.3.579.2.593 1946 Unknown [id number] 2.16.84 0.1.431092.3.579.2.593 1946 Unknown [id number] 2.16.84 0.1.288461.3.579.2.593 1946 Unknown [id number] 2.16.84 0.1.935035.3.579.2.1259 1946 Unknown [id number] 2.16.84 0.1.664300.3.579.2.1259 Unknown Unknown [id number] 2.16.8 40.1.945081.3.579.2.531 Unknown [id number] 2.16.8 40.1.242136.3.579.2.531 Unknown [id number] 2.16.8 40.1.411990.3.579.2.531 Social History Date Type Detail Facility Sex Assigned At [employer] Other Start: 08-04-2022 End: 06-05-2024 Tobacco smoking status Ex-smoker (finding) [facility] [place] Tobacco smoking status Never [facility] Start: 1945 Sex Assigned At Female F [facility] Medical Equipment Procedure Code Equipment Code Equipment Origin al Text Equipment Identifier Dates Blood Sugar Diagnostic (True Metrix Glucose Test Strip) strip Start: 03-31-2024 Pen Needle, Diab etic (Comfort Ez Pen [place]) 33 gauge x 5/32 needle Start: 03-25-2024 Blood Sugar Diagnostic (True Metrix Glucose Test Strip) strip Start: 03-31-2024 End: 03-31-2024 Blood Sugar Diagnostic (True Metrix Glucose Test Strip) strip Start: 03-31-2024 Pen Needle, Diab etic (Comfort Ez Pen [place]) 33 gauge x 5/32 needle Start: 03-25-2024 Blood Sugar Diagnostic (True Metrix Glucose Test Strip) strip Start: 03-31-2024 End: 03-31-2024 Blood Sugar Diagnostic (True Metrix Glucose Test Strip) strip Start: 03-31-2024 Pen Needle, Diab etic (Comfort Ez Pen [place]) 33 gauge x 5/32 needle Start: 03-25-2024 Blood Sugar Diagnostic (True Metrix Glucose Test Strip) strip Start: 03-31-2024 End: 03-31-2024 Blood Sugar Diagnostic (True Metrix Glucose Test Strip) strip Start: 03-31-2024 Pen Needle, Diab etic (Comfort Ez Pen [place]) 33 gauge x 5/32 needle Start: 03-25-2024 Blood Sugar Diagnostic (True Metrix Glucose Test Strip) strip Start: 03-31-2024 End: 03-31-2024 Blood Sugar Diagnostic (True Metrix Glucose Test Strip) strip Start: 03-31-2024 Pen Needle, Diab etic (Comfort Ez Pen [place]) 33 gauge x 5/32 needle Start: 03-25-2024 Blood Sugar Diagnostic (True Metrix Glucose Test Strip) strip Start: 03-31-2024 End: 03-31-2024 Blood Sugar Diagnostic (True Metrix Glucose Test Strip) strip Start: 03-31-2024 Pen Needle, Diab etic (Comfort Ez Pen [place]) 33 gauge x 5/32 needle Start: 03-25-2024 Blood Sugar Diagnostic (True Metrix Glucose Test Strip) strip Start: 03-31-2024 End: 03-31-2024 Blood Sugar Diagnostic (True Metrix Glucose Test Strip) strip Start: 03-31-2024 Pen Needle, Diab etic (Comfort Ez Pen [place]) 33 gauge x 5/32 needle Start: 03-25-2024 Blood Sugar Diagnostic (True Metrix Glucose Test Strip) strip Start: 03-31-2024 End: 03-31-2024 Blood Sugar Diagnostic (True Metrix Glucose Test Strip) strip Start: 03-31-2024 Pen Needle, Diab etic (Comfort Ez Pen [place]) 33 gauge x 5/32 needle Start: 03-25-2024 Blood Sugar Diagnostic (True Metrix Glucose Test Strip) strip Start: 03-31-2024 End: 03-31-2024 Functional Status Date Assessment Result Facility 08-04-2022 Functional Status N/A [facility] Clinical Notes 08-25-2021 to 06-18-2024 Note Date & Type Note Facility 06-18-2024 Note [facility] Subjective Joe Call is a 78 y.o. year old female patient being seen for 1 mo follow up acute on chronic diastolic heart failure, CAD, and CARMELO. She's presented to [facility] ED several times over the past [...] Hordeolum externum (stye) Immunization due Lactose intolerance MCC (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 insulin (CMS/HCC) Lumbar degenerative [...] prior cardiac catheterizations. She has history of MN in the past and underwent balloon angioplasty (many years ago, prior to the stent era). 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 In December 2022 she was admitted to the [facility] with decompensated diastolic heart failure, she was treated with diuretic therapy. In February 2023 she was admitted to [facility] with dehydration secondary to acute gastroenteritis. She also had acute kidney injury in that setting. She has history of breast cancer more than 25 years ago s/p mastectomy, chemo and radiation therapy. She has lymphedema in the left arm. In the past she saw a business info consultant for bleeding behind the eye . she [...] April 2024 she was admitted to the [facility] with increasing weakness and altered mental status. She also had acute renal insufficiency. She had UTI secondary to E. coli. She was admitted again to the [facility] on 06/09/2020 for with acute on chronic [...] She is well-develo (more content not included)... [facility] 05-20-2024 Note BMP today to assess renal function and electrolytes [facility] 05-20-2024 Note Heart failure is unc hanged. NYHA Class II. Continue current treatment regimen. Dietary sodium restriction. Encouraged daily monitoring of the patient's weight. Continue current medications. Heart failure will be reassessed in 1 month. BMP to assess renal function and electrolytes today to see if can uptitrate GDMT- in light Lasix, lisinopril and aldactone on hold from recent hospitalization [facility] 05-20-2024 Note Coronary artery dise ase is unchanged. Continue current medications. Continue GDMT- lipitor, metoprolol continue risk factor modifications- heart healthy diet, regular exercise as tolerated and continue all medications. [facility] 05-20-2024 Note Lipid abnormalities are unchanged. Pharmacotherapy as ordered. Continue lipitor [facility] 05-20-2024 Note [facility] CARDIOLOGY PROGR ESS NOTE HPI: Joe Call is a 78 y.o. female here for hospital F/U HPI: Patient here for follow up [facility] for renal failure. She was also discharged back in March 2024 for CHF. Lisinopril, spironolactone, and furosemide were stopped during one of the admissions. She denies chest pain, SOB, and LE edema. Denies lightheadedness, syncope, and bleeding on Xarelto. Feels much better s/p hospital stay. Palpitations are no more than usual for her. She will be seeing her certified tumor registrar (Dr. Rapp) on 06/05/2024. Currently weight is [...] per week. Previous HPI per Dr Rosaura Quevedonie is seen in follow up and to [...] prior cardiac catheterizations. She has history of MN in the past and underwent balloon angioplasty (many years ago, prior to the stent era). 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 In December 2022 she was admitted to the [facility] with decompensated diastolic heart failure, she was treated with diuretic therapy. In February 2023 she was admitted to [facility] with dehydration secondary to acute gastroenteritis. She also had acute kidney injury in that setting. She has history of breast cancer more than 25 years ago s/p mastectomy, chemo and radiation therapy. She has lymphedema in the left arm. In the past she saw a business info consultant for bleeding behind the eye . she [...] 2.3 m??? Allergie (more content not included)... [facility] 05-20-2024 Note Patient here for [facility] for renal failure. She was also discharged back in March 2024 for CHF. Lisinopril, spironolactone, and furosemide were stopped during one of the admissions. She denies chest pain, SOB, and LE edema. Denies lightheadedness, syncope, and bleeding on Xarelto. Feels much better s/p hospital stay. Palpitations are no more than usual for her. She will be seeing her certified tumor registrar (Dr. Rapp) on 06/05/2024. Review of Systems Cardiovascular: Positive for palpitations. Musculoskeletal: Positive for muscle weakness. All other systems reviewed and are negative. [facility] 03-07-2024 Note [facility] Subjective Joealisha Call is a 78 [...] prior cardiac catheterizations. She has history of MN in the past and underwent balloon angioplasty (many years ago, prior to the stent era). 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 In December 2022 she was admitted to the [facility] with decompensated diastolic heart failure, she was treated with diuretic therapy. In February 2023 she was admitted to [facility] with dehydration secondary to acute gastroenteritis. She also had acute kidney injury in that setting. She has history of breast cancer more than 25 years ago s/p mastectomy, chemo and radiation therapy. She has lymphedema in the left arm. In the past she saw a business info consultant for bleeding behind the eye . she [...] TIMES DAILY NEEDED (more content not included)... [facility] 02-15-2024 Hospital Discharge instructions Ambulatory OrdersReferral to Urology Time Frame: 02/15/24, Location: [facility] Work Phone: 11-19-2023 Evaluation note Encounter Date Diagnosis Assessment Notes Nov, Lumbar degenerative disc disease (ICD-10 - M51.36) [facility] Other [id number] Evaluation note* Encounter Date Diagnosis Assessment Notes [...] will check vitamin B12 level next visit [facility] Other 12-11-2023 Evaluation note* Encounter Date Diagnosis Assessment Notes Treatment Notes Treatment Clinical Notes Oct, Lumbar degenerative disc disease (ICD-10 - M51.36) [facility] Other 12-07-2023 Evaluation note* Encounter Date Diagnosis Assessment Notes Treatment Notes Treatment Clinical Notes Oct, Bronchitis (ICD-10 - J40) Finish meds. No acute need for antibiotic at this time Oct, Diabetes mellitus with chronic kidney disease (ICD-10 - E11.22) Due for labs, followup w Dr. Mcconnell Oct, Lumbar degenerative disc disease (ICD-10 - M51.36) Pt will contact neurosurgery. [facility] Other 10-27-2023 Evaluation note* Encounter Date Diagnosis Assessment Notes Treatment Notes Treatment Clinical Notes Aug, Chronic kidney disease, stage 4 (severe) (ICD-10 - N18.4) [facility] Other 10-24-2023 Evaluation note* Encounter Date Diagnosis [...] (ICD-10 - M51.36) Pt requests referral to [facility]. Reviewed OARRS report. Aug, Stress incontinence of urine (ICD-10 - N39.3) R/o infection. Discussed could be related to her diabetes med as well. [facility] Other 10-12-2023 Evaluation note* Encounter Date Diagnosis Assessment Notes Treatment Notes Treatment Clinical Notes Aug, Lumbar degenerative disc disease (ICD-10 - M51.36) [facility] Other 10-06-2023 NoteCardiology Clinic Note Subjective Joe [...] In February 2023 she was admitted to [facility] with dehydration secondary to acute gastroenteritis. She also had acute kidney injury in that setting. She has history of breast cancer more than 25 years ago s/p mastectomy, chemo and radiation therapy. She has lymphedema in the left arm. She has been doing well. No chest pain. No dyspnea. No palpitations. She reports that she is seeing a business info consultant for bleeding behind the eye . She has had a lot of balance issues, uses a walker to ambulate and has had about 10 falls in the past year. Update: 07/23/2023 She was admitted to [facility] 07/08-07/10/2023 for decompensated HFpEF She was [...] with questions Was prescribed Farxiga by her boat motor mechanic but did not start after reading about [...] DAYS, Disp: , Rfl (more content not included)...[facility]10-06-2023 NotePatient here for 1 mo follow up CAD, chronic diastolic heart failure, and PAF. Follow up labs have not been completed yet. Her boat motor mechanic recently started her on Farxiga but she [...] light-headedness. All other systems reviewed and are negative.[facility]* Encounter Date Diagnosis Assessment Notes Treatment Notes Treatment Clinical Notes Jul, Lumbar degenerative disc disease (ICD-10 - M51.36) [facility] Other 09-11-2023 NotePatient here for follow up [facility] for CHF. She was seen as [...] weakness. All other systems reviewed and are negative.[facility] 07-23-2023 NoteCardiology Clinic Note Subjective Joe Call [...] In February 2023 she was admitted to [facility] with dehydration secondary to acute gastroenteritis. She also had acute kidney injury in that setting. She has history of breast cancer more than 25 years ago s/p mastectomy, chemo and radiation therapy. She has lymphedema in the left arm. She has been doing well. No chest pain. No dyspnea. No palpitations. She reports that she is seeing a business info consultant for bleeding behind the eye . She has had a lot of balance issues, uses a walker to ambulate and has had about 10 falls in the past year. Update: 07/23/2023 She was admitted to [facility] 07/08-07/10/2023 for decompensated HFpEF She was [...] time each day., Disp: (more content not included)...[facility]09-05-2023 Evaluation note* Encounter Date Diagnosis Assessment Notes [...] refill. Oarrs reviewed. No med changes needed. [facility] Other 07-05-2023 Evaluation note* Encounter Date Diagnosis Assessment Notes Treatment Notes Treatment Clinical Notes May, C. difficile colitis (ICD-10 - A04.72) [facility] Other 06-19-2023 Evaluation note* Encounter Date Diagnosis Assessment Notes Treatment Notes Treatment Clinical Notes Apr, Skin candidiasis (ICD-10 - B37.2) Discussed this is related to her hyperglycemia. Will treat w nystatin, but needs improvement in diet and glucose readings. Apr, Type 2 diabetes mellitus with hyperglycemia, unspecified whether keno terminal operator insulin use (ICD-10 - E11.65) Pt agrees to see Dr Mcconnell again. Recently sent to ER for glucose of 608. 19 Apr, 2023 Tremor of both hands (ICD-10 - R25.1) Referral to Dr. Lopez Apr, Memory changes (ICD- 10 - R41.3) Referral to Dr. Lopez Apr, Gastroesophageal reflux disease without esophagitis (ICD-10 - K21.9) Improved on carafate w PPI. [facility] Other 06-01-2023 Evaluation note* Encounter Date Diagnosis Assessment Notes Treatment Notes Treatment Clinical Notes Apr, Gastroesophageal ref lux disease without esophagitis (ICD-10 - K21.9) [facility] Other 04-28-2023 Evaluation note* Encounter Date Diagnosis [...] get lab ordered on 02/20 today Feb, MCC (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 insulin (ICD-10 - Z79.4) [facility] Other 04-26-2023 Evaluation note* Encounter Date Diagnosis Assessment Notes Treatment Notes Treatment Clinical Notes Feb, C. difficile colitis (ICD-10 - A04.72) [facility] Other 04-17-2023 Evaluation note* Encounter Date Diagnosis Assessment Notes Treatment Notes Treatment Clinical Notes Feb, Gastroesophageal ref lux disease without esophagitis (ICD-10 - K21.9) [facility] Other 04-14-2023 Evaluation note* Encounter Date Diagnosis Assessment Notes Treatment Notes Treatment Clinical Notes Feb, Chronic diarrhea (ICD-10 - K52.9) [facility] Other 04-11-2023 Evaluation note* Encounter Date Diagnosis [...] it really overall has not been helpful. [facility] Other 01-13-2023 Evaluation note* Encounter Date Diagnosis Assessment Notes Treatment Notes Treatment Clinical Notes Nov, Type 2 diabetes mellitus with hyperglycemia, unspecified whether keno terminal operator insulin use (ICD-10 - E11.65) [facility] Other 10-14-2021 Evaluation note* Encounter Date Diagnosis [...] training 6. Follow up in 3 months. [employer] Other Evaluation + Plan note No data available for this section General Surgery [facility] Evaluation noteNo InformationNort [employer], [employer] Other Evaluation noteNort [employer] Other Evaluation noteNort [employer] Other Evaluation note* Diagnosis Onset Date Resolution Status Chalazion of right eye acute Immunization due acute Urinary incontinence acute [facility] Work Phone: evaluation note* Diagnosis Onset Date Resolution Status Chalazion of right eye acute Immunization due acute Urinary incontinence acute Diabetes mellitus with hyperglycemia acute Hypertension acute Hypothyroidism acute Lumbar spondylosis acute Secondary hyperparathyroidism acute [facility] Work Phone: Evaluation note* Diagnosis Onset [...] acute Thrush of mouth and esophagus acute [facility] Work Phone: Evaluation note* Diagnosis Onset [...] IV acute UTI (urinary tract infection) acute [facility] Work Phone: Evaluation note* Diagnosis Onset [...] acute Thrush of mouth and esophagus acute [id number] acute Secondary hyperparathyroidism acute [facility] Work Phone: Evaluation note* Diagnosis Onset [...] acute Thrush of mouth and esophagus acute [id number] acute CKD (chronic kidney disease) stage 3, GFR 30-59 ml/min acute Hyperlipidemia acute [id number] acute Secondary hyperparathyroidism acute Type 2 diabetes mellitus wit h diabetic chronic kidney disease acute Tremor acute [facility] Work Phone: Evaluation note* Diagnosis Onset [...] acute Thrush of mouth and esophagus acute [id number] acute CKD (chronic kidney disease) stage 3, GFR 30-59 ml/min acute Hyperlipidemia acute [id number] acute Secondary hyperparathyroidism acute Type 2 diabetes mellitus wit h diabetic chronic kidney disease acute Acute on chronic diastolic C HF (congestive heart failure) acute [id number] acute Tremor acute [id number] acute [facility] Work Phone: Evaluation note* Diagnosis Onset [...] acute Thrush of mouth and esophagus acute [id number] acute CKD (chronic kidney disease) stage 3, GFR 30-59 ml/min acute Hyperlipidemia acute [id number] acute Secondary hyperparathyroidism acute Type 2 diabetes mellitus wit h diabetic chronic kidney disease acute Acute on chronic diastolic C HF (congestive heart failure) acute [id number] acute Tremor acute [id number] acute Mass of right axilla acute [facility] Work Phone: Evaluation note* Diagnosis Onset [...] acute Thrush of mouth and esophagus acute [id number] acute CKD (chronic kidney disease) stage 3, GFR 30-59 ml/min acute Hyperlipidemia acute [id number] acute Secondary hyperparathyroidism acute Type 2 diabetes mellitus wit h diabetic chronic kidney disease acute Acute on chronic diastolic C HF (congestive heart failure) acute [id number] acute Tremor acute [id number] acute Mass of right axilla acute CHF (congestive heart failure) acute Dehydration acute [id number] acute [id number] acute [facility] Work Phone: Evaluation note* Diagnosis Onset [...] acute Thrush of mouth and esophagus acute [id number] acute CKD (chronic kidney disease) stage 3, GFR 30-59 ml/min acute Hyperlipidemia acute [id number] acute Secondary hyperparathyroidism acute Type 2 diabetes mellitus wit h diabetic chronic kidney disease acute Acute on chronic diastolic C HF (congestive heart failure) acute [id number] acute Tremor acute [id number] acute Back pain with history of spinal surgery acute Cervical disc disease acute CKD (chronic kidney disease), stage IV acute Mass of right axilla acute CHF (congestive heart failure) acute Dehydration acute [id number] acute [id number] acute Dysuria acute [facility] Work Phone: Hishldd general Narrative - Reported* Type Description Date [...] History COLONOSCOPY 04/10/2019 Hospitalization History See above [facility] Other Hismqhq general Narrative - Reported* Type Description Date [...] History COLONOSCOPY 04/10/2019 Hospitalization History See above [facility] Other Hisfcvn general Narrative - ReportedNoThemBid Other Hiswsfj general Narrative - ReportedNoThemBid Other Hiswishkicker general Narrative - Reported* Type Description Date [...] GERD 2022 Hospitalization History DIABETES ISSUES 2022 [facility] Other Hospital Discharge instructions No data available for this section [facility] Discharge instructionsAmbulatory Orders* Referral to Neurology Time Frame: 06/16/24, Location: None [facility] Work Phone: Hospital Discharge instructionsAmbulatory Orders* Referral to ENT Time Frame: 06/25/24, Location: None [facility] Work Phone: Progress note No data available for this section General Surgery [facility] Summary Purpose Family History No Family History [...] se, stage 4 (severe) (N18.4) Referral Organization [facility] helene Referring Provider First Name Shantel Referring Provider Last Name Tenisha Referring Provider Specialty [facility] Referred Organization [facility] Nephrology Referred Provider Cherie Rapp Referred Address [address] [place], [place],[address] Referred Provider Specialty Nephrology Referral Priority Routine General Notes Mariela Kingston 11:35:41 AM >received today, sent P2P Reason *FU 09/13 lumbar p ain Diagnosis 1 Lumbar degenerative disc disease (M51.36) Referral Organization [facility]ene Referring Provider First Name Shantel Referring Provider Last Name Tenisha Referring Provider [facility] Referred Organization [facility] Referred Provider Terell Soliz Referred Address [address], [place],[address] Referred Provider Specialty Pain Medicin e Referral Priority Routine General Notes Mariela Kingston 03:09:25 PM >received today, waiting for notes to be locked Mariela Kingston 09/06/2023 10:08:29 AM >notes locked, referral faxed Clinical Notes F: [id number] Reason Poorly controlled di abetes Diagnosis 1 Type 2 diabetes maranda itus with hyperglycemia, unspecified whether keno terminal operator insulin use (E11.65) Referral Organization [facility] helene Referring Provider First Name Shantel Referring Provider Last Name Tenisha Referring Provider Specialty [facility] Referred Organization Unknown Facility Referred Provider Joshua Mcconnell Referred Provider Specialty Internal Med icine Referral Priority Routine Reason tremor and memory lo ss - family history of dementia Diagnosis 1 Tremor of both hands (R25.1) Referral Organization [facility] helene Referring Provider First Name Shantel Referring Provider Last Name Tenisha Referring Provider Specialty [facility] Referred Organization Unknown Facility Referred [...] disc disease Thrush of mouth and esophagus [id number] Secondary hyperparathyroidism Chief Complaint medication review Amb [...] disc disease Thrush of mouth and esophagus [id number] CKD (chronic kidney disease) stage 3, GFR 30-59 ml/min Hyperlipidemia [id number] Secondary hyperparathyroidism Type 2 diabetes mellitus with [...] disc disease Thrush of mouth and esophagus [id number] CKD (chronic kidney disease) stage 3, GFR 30-59 ml/min Hyperlipidemia [id number] 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 Acute on chronic diastolic CHF (congestive heart failure) [id number] Tremor [id number] Chief Complaint difficulty swallowin g Amb Documentation [...] disc disease Thrush of mouth and esophagus [id number] CKD (chronic kidney disease) stage 3, GFR 30-59 ml/min Hyperlipidemia [id number] 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 Acute on chronic diastolic CHF (congestive heart failure) [id number] Tremor [id number] Mass of right axilla Chief Complaint difficulty swallowin g Amb Documentation TBH follow up, Hypercolemia throat problem SOB RENAL CKD 4 TBH follow up 3 month f/u Kidney injury, high BP Reason for Visit Cervical disc diseas e CKD (chronic kidney disease), stage IV Diabetes mellitus with hyperglycemia Thrush of mouth and esophagus Abdominal swelling, generalized Acute on chronic diastolic CHF (congestive heart failure) Back pain with history of spinal surgery Cervical disc disease CKD (chronic kidney disease), stage IV UTI (urinary tract infection) Lumbar degenerative disc disease Thrush of mouth and esophagus [id number] CKD (chronic kidney disease) stage 3, GFR 30-59 ml/min Hyperlipidemia [id number] 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 Acute on chronic diastolic CHF (congestive heart failure) [id number] Tremor [id number] Mass of right axilla Chief Complaint difficulty swallowin g Amb Documentation TBH follow up, Hypercolemia throat problem SOB RENAL CKD 4 TBH follow up 3 month f/u Kidney injury, high BP UA Reason for Visit Cervical disc diseas e CKD (chronic kidney disease), stage IV Diabetes mellitus with hyperglycemia Thrush of mouth and esophagus Abdominal swelling, generalized Acute on chronic diastolic CHF (congestive heart failure) Back pain with history of spinal surgery Cervical disc disease CKD (chronic kidney disease), stage IV UTI (urinary tract infection) Lumbar degenerative disc disease Thrush of mouth and esophagus [id number] CKD (chronic kidney disease) stage 3, GFR 30-59 ml/min Hyperlipidemia [id number] 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 Acute on chronic diastolic CHF (congestive heart failure) [id number] Tremor [id number] Mass of right axilla CHF (congestive heart failure) Dehydration [id number] Chief Complaint difficulty swallowin g Amb Documentation TBH follow up, Hypercolemia throat problem SOB RENAL CKD 4 TBH follow up 3 month f/u Kidney injury, high BP Dysuria UA Reason for Visit Cervical disc diseas e CKD (chronic kidney disease), stage IV Diabetes mellitus with hyperglycemia Thrush of mouth and esophagus Abdominal swelling, generalized Acute on chronic diastolic CHF (congestive heart failure) Back pain with history of spinal surgery Cervical disc disease CKD (chronic kidney disease), stage IV UTI (urinary tract infection) Lumbar degenerative disc disease Thrush of mouth and esophagus [id number] CKD (chronic kidney disease) stage 3, GFR 30-59 ml/min Hyperlipidemia [id number] 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 Acute on chronic diastolic CHF (congestive heart failure) [id number] Tremor [id number] Back pain with history of spinal surgery Cervical disc disease CKD (chronic kidney disease), stage IV Mass of right axilla CHF (congestive heart failure) Dehydration [id number] Dysuria Additional Source Comments INFORMATION SOURCE (unrecogn ized section and content) DATE CREATED AUTHOR 05/10/2018 [facility] DATE CREATED AUTHOR AUTHOR'S ORGANIZ ATION 03/10/2023 [facility] DATE CREATED AUTHOR AUTHOR'S ORGANIZ ATION 02/20/2024 [facility] DATE CREATED AUTHOR AUTHOR'S ORGANIZ ATION 07/03/2024 [facility] DATE CREATED AUTHOR AUTHOR'S ORGANIZ ATION 07/21/2024 [facility] DATE CREATED AUTHOR AUTHOR'S ORGANIZ ATION 07/24/2024 [facility] EPIC REASON FOR VISIT (unrecogniz ed section and [...] Care Provider Active Start: May 20, 2024 MARY JANE EspinozaP-C Attending Provider Active S tart: May 20, [...] 18, 2024 End: January 18, 2024 Franchesca Rohrbacher , PHOTOSTAT OPERATOR TRUST OFFICER-C Attending Provider Act chiqui Start: January [...] St art: January 29, 2024 Team Status: Active Member Role Status Dates Shantel Steven MD Primary Care Provider Active Start: April 30, 2024 Asael Sandoval DO Attending Provider Active Sta rt: April 30, 2024 Team Status: Active Member Role Status Dates Shantel Steven MD Primary Care Provider Active Start: May 04, 2024 End: May 06, 2024 Asael Sandoval DO Attending Provider Active Sta rt: May 04, 2024 End: May 06, 2024 Carl Morales MD Referring Provider Active Sta rt: May 04, 2024 End: May 06, 2024 Team Status: Active Member Role Status Cecille Steven MD Primary Care Provide r, Attending Provider Active Start: July 14, 2024 Team Status: Active Member Role Status Cecille Steven MD Primary Care Provider Active Start: July 15, 2024 Cherie Rapp MD Attending Provider Active Start : July 15, 2024 Team Status: Inactive Member Role Status Cecille Steven MD Primary Care Provide r, Attending Provider Active Start: July 16, 2024 End: July 16, 2024 Team Status: Inactive Member Role Status Cecille Steven MD Primary Care Provide r, Attending Provider Active Start: July 17, 2024 End: July 17, 2024 Team Status: Inactive Member Role Status Cecille Steven MD Attending Provider Active St art: July 17, 2024 End: July 17, 2024 Goals (unrecognized section and content) Goals [...] BE BASED ON THE PRIMARY CLINICAL RECORDS. [facility]. provides no warranty or guarantee of the accuracy or completeness of information in this document.
[2024-07-24] MEDS: RIVAROXABAN 10 MG TABLET 20 MG PO (22:07)
[2024-07-24] MEDS: FAMOTIDINE 20 MG TABLET PO (22:07)
[2024-07-25] VITALS (9 sets, daily range): BP systolic 161; BP diastolic 94; PULSE 72–99; TEMP 36.6; O2SAT 92–93
[2024-07-25] MEDS: GABAPENTIN 100 MG CAPSULE PO (06:20)
[2024-07-25] MEDS: FUROSEMIDE 40 MG/4 ML VIAL IVP (06:20)
[2024-07-25] MEDS: LEVOTHYROXINE SODIUM 125 MCG TABLET PO (06:20)
[2024-07-25 06:43] LABS: Basophils Absolute Auto 0.1 10^3/uL (0.0-0.1); Basophils Percent Auto 1.2 % (0.2-2.0); Eosinophils Absolute Auto 0.1 10^3/uL (0.0-0.7); Eosinophils Percent Auto 1.6 % (0.9-7.0); Hematocrit 33.6 % (36.0-48.0); Immature Granulocytes Abs Auto 0.02 10^3/uL (0.00-0.03); Immature Granulocytes Pct Auto 0.2 % (0.0-0.5); Lymphocytes Absolute Auto 1.4 10^3/uL (1.2-3.8); Lymphocytes Percent Auto 15.9 % (20.5-60.0); Mean Corpuscular HGB Conc 32.7 g/dL (29.9-35.2); Mean Corpuscular Hemoglobin 29.7 pg (26.7-34.0); Mean Corpuscular Volume 90.8 fL (81.0-99.0); Mean Platelet Volume 10.3 fL (9.5-13.5); Monocytes Absolute Auto 0.7 10^3/uL (0.3-0.8); Monocytes Percent Auto 8.2 % (1.7-12.0); Neutrophils Absolute Auto 6.3 10^3/uL (1.4-6.5); Neutrophils Percent Auto 72.9 % (43.0-75.0); Platelet Count 239 10^3/uL (150-450); Red Cell Distribution Width 13.7 % (11.0-15.0); White Blood Count 8.7 10^3/uL (4.0-11.0)
--- NOTE | 2024-07-25 07:00 | XR_ITS ---
The [address] [address] Patient Name: JOE CALL MRN: [id number] date: 1945 Sex: F Assigned Patient Location: [place] Current Patient Location: Accession/Order Number: [id number] Exam Date: 07/25/2024 06:00 Report Date: 07/25/2024 07:05 At the request of: SHAIKH RAY Procedure: XR chest 2V PROCEDURE: XR chest 2V DATE: 07/25/2024 5:00 AM CDT COMPARISONS: 06/09/2024 CLINICAL INDICATION: 79 years Female CHF FINDINGS: The heart is mildly prominent and stable. There is moderately prominent diffuse increased interstitial markings throughout all lung morley. Much of this likely represents interstitial fluid and pulmonary edema secondary to congestive heart failure. There is vvgtl-lb-uakxubsz size left pleural effusion. There is small amount of right pleural effusion. These effusions have progressed somewhat since previous exam There is no evidence of pneumothorax XR/XR chest 2V IMPRESSION: Findings most consistent with congestive heart failure more prominent than 06/09/2024. Pleural effusions have increased in size. Electronically authenticated by: DADA CORRALES Date: 07/25/2024 07:05
[2024-07-25 07:17] LABS: Alanine Aminotransferase 14 U/L (14-59); Albumin Globulin Ratio 0.5; Albumin Level 2.3 g/dL (3.4-5.0); Alkaline Phosphatase 101 U/L (46-116); Anion Gap 13.9; Aspartate Amino Transferase 13 U/L (15-37); Bilirubin Total 0.8 mg/dL (0.2-1.0); Calcium 8.6 mg/dL (8.5-10.1); Carbon Dioxide 27.8 mmol/L (21.0-32.0); Chloride 102 mmol/L (98-107); Estimated GFR (African America 56 (>=60); Estimated GFR (Non-African Ame 47 (>=60); Globulin 4.7 g/dL; Glucose 228 mg/dL (74-106); Potassium 3.7 mmol/L (3.5-5.1); Sodium 140 mmol/L (136-145)
[2024-07-25] MEDS: INSULIN ASPART 300 UNIT/3 ML PEN SUBQ (08:47)
[2024-07-25] MEDS: LISINOPRIL 10 MG TABLET PO (08:47)
[2024-07-25] MEDS: VITS A,C,E/LUTEIN/MINERALS 1 TABLET 1 TAB PO (08:47)
[2024-07-25] MEDS: FAMOTIDINE 20 MG TABLET PO (08:48)
[2024-07-25] MEDS: DILTIAZEM HCL 120 MG CAP.ER.24H PO (08:48)
[2024-07-25] MEDS: METOPROLOL TARTRATE 100 MG TABLET 150 MG PO (08:48)
[2024-07-25] MEDS: ALPRAZOLAM 0.25 MG TABLET PO (08:48)
--- NOTE | 2024-07-25 10:11 | P.HP_ITS ---
HPI H&P: HPI History of Present Illness Chief complaint: SOB Pulmonary Edema CHF Narrative: This is a delayed note for my encounter on 06/23/24 I saw the patient in ED when she was admitted on 06/23/24 79 y o female with hx of HFpEF, multiple admissions for CHF exacerbations this past year, presented to ED with worsening LE edema, shortness of breath and abdominal wall edema. Patient's diuretic regimen has been changed multiple times and each time, one of her providers stop her diuretic - she ends up having CHF exacerbation, requiring hospital admission and IV diuresis. Patient was apparently told by her Commercial Maintenance Technician that she needs to drink atleast 150 fl oz of water daily and she has been doing that daily. It seems more likely that she misunderstood those instructions as this is a sig amount of water intake for anyone. Her CHF exacerbation is likely due to excessive fluid intake and not using her diuretic. By the time, I evaluated her, she had already received IV lasix and reported to me that she felt a little better but patient was still visibly short of breath and could barely carry on a conversation w/o having to stop and rest. She denies CP, cough, palpitations. Opioid HPI Opioid Management Most Recent Pain and Opioid Data: Last Pain Scale 2 07/01/24 09:18 Last Pain Intensity 3 06/09/24 13:07 Last Pain Assessment 07/25/24 10:00 Last ORT Total Score 0 07/24/24 15:31 Last ORT Risk Category Low Risk 07/24/24 15:31 Review of Systems ROS Status of ROS 10 or more systems reviewed and unremark able except as noted in history and below [facility] Medical History (Updated 07/25/24 @ 10:48 by Shaikh Isak MD) Intermittent palpitations ?R00.2 - Palpitations (ICD-10) Acute hyperglycemia ?R73.9 - Hyperglycemia, unspecified (ICD-10) Acute kidney injury ?N17.9 - Acute kidney failure, unspecified (ICD-10) Uncontrolled diabetes mellitus Acute on chronic clinical systolic heart failure ?I50.23 - Acute on chronic systolic (congestive) heart failure (ICD-10) Acute renal failure ?N17.9 - Acute kidney failure, unspecified (ICD-10) Hyperkalemia ?E87.5 - Hyperkalemia (ICD-10) Acute dehydration ?E86.0 - Dehydration (ICD-10) CKD stage 3a, GFR 45-59 ml/min ?N18.31 - Chronic kidney disease, stage 3a (ICD-10) Diabetes mellitus with hyperglycemia, with long-term current use of insulin ?E11.65 - Type 2 diabetes mellitus with hyperglycemia (ICD-10) ?Z79.4 - halfway (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9 - Obesity, unspecified (ICD-10) Surgical History (Updated 07/18/24 @ 11:16 by Callie Gray) History of cholecystectomy ?Z90.49 - Acquired absence of other specified parts of digestive tract (ICD- 10) History of appendectomy ?Z90.49 - Acquired absence of other specified parts of digestive tract (ICD- 10) History of hysterectomy ?Z90.710 - Acquired absence of both cervix and uterus (ICD-10) H/O lumbosacral spine surgery ?Z98.890 - Other specified postprocedural states (ICD-10) H/O bilateral mastectomy ?Z90.13 - Acquired absence of bilateral breasts and nipples (ICD-10) Family History Other Family history of CHF (congestive heart failure) Family history of cancer Family history of diabetes mellitus Family history of hypertension H/O mastectomy Social History (Updated 07/24/24 @ 15:41 by Deanne Reyes) Within the past year, how often did you have a drink containing alcohol: never Within the past year, how often did you have six or more drinks on one occasion: never Score interpretation: A score less than 3 is consistent with normal alcohol consumption. 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 Highest level of school completed/degree received: some college, no degree Do you want help with school or training: No Are you now , , , , never or living with a partner: In a typical week, how many times do you talk on the telephone with family, friends, or neighbors: twice per week How often do you get together with friends or relatives: twice per week How often do you attend temple or sabianism services: never Do you belong to any clubs or organizations such as temple groups unions, [employer] or athletic groups, or school groups: no Total score: 2 Score interpretation: A score of greater than or equal to 2 indicates the lowest level of social isolation. Little interest or pleasure in doing things: not at all Feeling down, depressed, or hopeless: not at all Feel stressed/tense/nervous/anxious/difficulty sleeping: not at all Due to disability, difficulty making decisions: No Do you think of yourself as: straight/heterosexual Gender Identity: female Meds Home Medications and Allergies Home Medications ?Medication ?Instructions ?Recorded ?Confirmed ?Type insulin glargine 100 unit/mL (3 20 unit subcut BEDTIME 04/25/23 07/24/24 History mL) subcutaneous pen (Lantus Solostar U-100 Insulin) metoprolol tartrate 100 mg tablet 150 mg PO BID 04/25/23 07/24/24 History alprazolam 0.25 mg tablet 0.25 mg PO TID PRN anxiety 04/30/24 07/24/24 History levothyroxine 125 mcg tablet 125 mcg PO .acb 04/30/24 07/24/24 History oxycodone-acetaminophen 5 mg-325 1 tab PO DAILY PRN pain 04/30/24 07/24/24 History mg tablet insulin NPH isoph U-100 human 100 1 unit subcut ACHS 06/09/24 07/24/24 History unit/mL (3 mL) subcutaneous pen (Novolin N FlexPen) atorvastatin 20 mg tablet 20 mg PO QPM 06/18/24 07/24/24 History biotin 10,000 mcg disintegrating 10,000 mcg PO DAILY 06/18/24 07/24/24 History tablet cholecalciferol (vitamin D3) 125 125 mcg PO DAILY 06/18/24 07/24/24 History mcg (5,000 unit) tablet (Vitamin D3) lisinopril 10 mg tablet 10 mg PO DAILY 06/18/24 07/24/24 History rivaroxaban 20 mg tablet (Xarelto) 20 mg PO DAILY 06/18/24 07/24/24 History vit C 226 mg-vit E 90 mg-copper 1 cap PO BID 06/18/24 07/24/24 History 0.8 mg-zinc oxide-lutein 5 mg capsule (PreserVision Lutein) bumetanide 1 mg tablet 1 mg PO Q12H 07/14/24 07/24/24 History diltiazem HCl 120 mg 120 mg PO .QD 07/14/24 07/24/24 History capsule,extended release 24 hr ciprofloxacin HCl 250 mg tablet 250 mg PO DAILY 07/24/24 07/24/24 History famotidine 20 mg tablet 20 mg PO .qhs 07/24/24 07/24/24 History gabapentin 100 mg capsule 100 mg PO TID 07/24/24 07/24/24 History omeprazole 40 mg capsule,delayed 40 mg PO .acb 07/24/24 07/24/24 History release Allergies Allergy/AdvReac Type Severity Reaction Status Date / Time Iodinated Contrast Media Allergy Intermediate Hives Verified 07/24/24 13:08 shellfish derived Allergy Intermediate Hives Verified 07/24/24 13:08 Sulfa (Sulfonamide Allergy Rash Verified 07/24/24 13:08 Antibiotics) Exam Constitutional Vital Signs, click to edit/add: Last Vital Signs Temp 98 F 07/25/24 05:33 Pulse 72 07/25/24 09:58 Resp 20 07/25/24 05:33 BP 161/94 H 07/25/24 05:33 Pulse Ox 92 L 07/25/24 05:33 O2 Del Method Room Air 07/25/24 05:33 General appearance: cooperative, in distress mild and ill appearing Nutritional appearance: obese [facility] Common normals: normocephalic and head/scalp atraumatic Respiratory Common normals: normal respiratory effort Effort & inspection: tachypneic Auscultation: rales bilateral Other: Conversational dyspnea noted during exam. Cardio Common normals: regular rate, regular rhythm, S1 normal heart sound and S2 normal heart sound Jugular venous distention: JVD to the level of the angle of the jaw GI Common normals: Normal to inspection, nondistended, normoactive bowel sounds present, soft to palpation, non-tender and no hepatosplenomegaly Extremity Common normals: full ROM General: edema (+2 LE edema) Neuro Common normals: oriented x3, moves all extremities, no focal motor deficits and no sensory deficits noted Psych Common normals: mental status grossly normal, thought process normal, denies homicidal ideation and denies suicidal ideation Results Labs Labs: Short CBC 07/24/24 07/25/24 Range/Units 13:50 06:25 WBC 9.7 8.7 (4.0-11.0) 10^3/uL Hgb 11.2 L 11.0 L (12.0-16.0) g/dL Hct 34.5 L 33.6 L (36.0-48.0) % Plt Count 236 239 (150-450) 10^3/uL BMP 07/24/24 07/25/24 13:50 06:25 Sodium 141 140 Potassium 4.1 3.7 Chloride 104 102 Carbon Dioxide 26.1 27.8 BUN 28.0 H 26.0 H Creatinine 1.11 H 1.13 H Glucose 247 H 228 H Calcium 8.9 8.6 Liver Function 07/25/24 Range/Units 06:25 Total Bilirubin 0.8 (0.2-1.0) mg/dL AST 13 L (15-37) U/L ALT 14 (14-59) U/L Alkaline Phosphatase 101 (46-116) U/L Albumin 2.3 L (3.4-5.0) g/dL Assessment and Plan Assessment and Plan (1) Acute on chronic diastolic HF (heart failure): Assessment and Plan: Sig volume overload based on exam with SOB at rest. Needs IV diuresis. Started on Lasix 40 q12, Monitor I/O, daily weight. No need for repeat ECHO as one was done fairly recently. (2) Diabetes mellitus with hyperglycemia, with long-term current use of insulin: Assessment and Plan: C/w home regimen. Defer changes to his regimen to PCP. Qualifiers: Diabetes mellitus type: type 2 Qualified Code(s): E11.65 - Type 2 diabetes mellitus with hyperglycemia; Z79.4 - 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 driver (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 insulin (3) Paroxysmal atrial fibrillation: Assessment and Plan: In NSR. On Eliquis for AC. (4) CKD stage 3a, GFR 45-59 ml/min: Assessment and Plan: Renal function at baseline. Monitor closely while on diuretics. (5) Hypothyroidism (acquired): Assessment and Plan: C/w levothyroxine. (6) Hypertension: Assessment and Plan: Above goal. Likely due to dyspnea. C/w home medicaitons. Qualifiers: Hypertension type: primary hypertension Qualified Code(s): I10 - Essential (primary) hypertension (7) Obesity: Assessment and Plan: Recommend weight loss. She will be a good candidate for GLP agonsits. Qualifiers: Obesity type: due to excess calories Obesity classification: adult class 3 (BMI >= 40) Serious obesity comorbidity presence: with serious comorbidity Body mass index: BMI 40.0-44.9 Qualified Code(s): E66.01 - Morbid (severe) obesity due to excess calories; Z68.41 - Body mass index [BMI] 40.0- 44.9, adult
--- NOTE | 2024-07-25 10:17 | CM.NOTE ---
Rounds made with Dr. Parisi, pt will discharge to home today. Pt denies any respiratory distress or discomforts. Pt up with walker ad karin in room. No discharge needs identified.
--- NOTE | 2024-07-25 10:52 | PM.DS1 ---
DS: Providers Provider Date of admission: 07/24/24 15:26 Primary care physician: Theodora Cuevas MD Admitting clinician: Shaikh Isak Attending physician on admission: Shaikh Isak Consults: 07/24/24 14:37 Occupational Therapy Eval and Treat Routine Reason for consultation: Ambulatory dysfunction/weakness Physical Therapy Eval and Treat Routine Reason for consultation: Ambulatory dysfunction/weakness Attending physician on discharge: Shaikh Isak Discharging clinician: Shaikh Isak Anticipated date of discharge: 07/25/24 DS: Diagnosis Discharge Diagnosis (1) Acute on chronic diastolic HF (heart failure): (2) Diabetes mellitus with hyperglycemia, with long-term current use of insulin: Qualifiers: Diabetes mellitus type: type 2 Qualified Code(s): E11.65 - Type 2 diabetes mellitus with hyperglycemia; Z79.4 - assisted (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 insulin (3) Paroxysmal atrial fibrillation: (4) CKD stage 3a, GFR 45-59 ml/min: (5) Hypothyroidism (acquired): (6) Hypertension: Qualifiers: Hypertension type: primary hypertension Qualified Code(s): I10 - Essential (primary) hypertension (7) Obesity: Qualifiers: Obesity type: due to excess calories Obesity classification: adult class 3 (BMI >= 40) Serious obesity comorbidity presence: with serious comorbidity Body mass index: BMI 40.0-44.9 Qualified Code(s): E66.01 - Morbid (severe) obesity due to excess calories; Z68.41 - Body mass index [BMI] 40.0-44.9, adult DS: Summary Hospital Course Hospital Course: 79 y o female with hx of HFpEF, multiple admissions for CHF exacerbations this past year, presented to ED with worsening LE edema, shortness of breath and abdominal wall edema. Patient's diuretic regimen has been changed multiple times and each time, one of her providers stop her diuretic - she ends up having CHF exacerbation, requiring hospital admission and IV diuresis. Patient was apparently told by her Bioinformatics Specialist that she needs to drink atleast 150 fl oz of water daily and she has been doing that daily. It seems more likely that she misunderstood those instructions as this is a sig amount of water intake for anyone. Her CHF exacerbation is likely due to excessive fluid intake and not using her diuretic. Patient was admitted for acute on chronic diastolic HF, started on IV lasix. She had good UO on it and improved considerably with overnight diuresis. She is stable for discharge on oral lasix, aldactone. Patient was educated on fluid/salt restrictions. She will need f/u with PCP In one week Status at Discharge Functional status at discharge: independent ambulation Overall status at discharge: patient is back to baseline Time Spent with Patient Time attestation: Total time spent providing and/or coordinating discharge services: Time spent: greater than 30 minutes Exam Constitutional Vital Signs, click to edit/add: Last Vital Signs Temp 98 F 07/25/24 05:33 Pulse 72 07/25/24 09:58 Resp 20 07/25/24 05:33 BP 161/94 H 07/25/24 05:33 Pulse Ox 92 L 07/25/24 10:24 O2 Del Method Room Air 07/25/24 10:24 General appearance: cooperative, in distress mild and ill appearing Nutritional appearance: obese Respiratory Common normals: normal respiratory effort, no use of accessory muscles and clear to auscultation bilaterally Effort & inspection: able to speak in complete sentences Other: Conversational dyspnea noted during exam. Cardio Common normals: regular rate, regular rhythm, S1 normal heart sound and S2 normal heart sound Jugular venous distention: JVD to the level of the angle of the jaw Extremity Common normals: normal to inspection and full ROM Neuro Common normals: oriented x3, moves all extremities, no focal motor deficits and no sensory deficits noted Psych Common normals: mental status grossly normal, thought process normal, denies homicidal ideation and denies suicidal ideation DS: Data Data Completed and Pending Labs on day of discharge: Labs from last 24 hours 07/25/24 07/24/24 06:25 13:50 WBC 8.7 9.7 RBC 3.70 L 3.75 L Hgb 11.0 L 11.2 L Hct 33.6 L 34.5 L MCV 90.8 92.0 MCH 29.7 29.9 MCHC 32.7 32.5 RDW 13.7 13.7 Plt Count 239 236 MPV 10.3 10.4 Neut % (Auto) 72.9 82.8 H Lymph % (Auto) 15.9 L 9.2 L [place] % (Auto) 8.2 5.3 Eos % (Auto) 1.6 1.7 Baso % (Auto) 1.2 0.7 Neut # (Auto) 6.3 8.0 H Lymph # (Auto) 1.4 0.9 L [place] # (Auto) 0.7 0.5 Eos # (Auto) 0.1 0.2 Baso # (Auto) 0.1 0.1 Abs Immat Gran (auto) 0.02 0.03 Imm/Tot Granulo (auto) 0.2 0.3 Sodium 140 141 Potassium 3.7 4.1 Chloride 102 104 Carbon Dioxide 27.8 26.1 Anion Gap 13.9 15.0 BUN 26.0 H 28.0 H Creatinine 1.13 H 1.11 H Est GFR ( Amer) 56 L 58 L Est GFR (Non-Af Amer) 47 L 48 L BUN/Creatinine Ratio 23.0 25.2 Glucose 228 H 247 H Calcium 8.6 8.9 Total Bilirubin 0.8 AST 13 L ALT 14 Alkaline Phosphatase 101 Troponin I High Sens 20.5 NT-Pro-B Natriuret Pep 6277.0 H* Total Protein 7.0 Albumin 2.3 L Globulin 4.7 Albumin/Globulin Ratio 0.5 Discharge Plan Discharge Disposition: Home, Self-Care Condition: Fair Discharge Medications: New furosemide [Lasix] 40 mg tablet 40 mg PO DAILY Qty: 30 0RF spironolactone [Aldactone] 25 mg tablet 25 mg PO DAILY Qty: 30 0RF Continued insulin glargine [Lantus Solostar U-100 Insulin] 100 unit/mL (3 mL) insulin pen 20 unit SUBCUT BEDTIME metoprolol tartrate 100 mg tablet 150 mg PO BID levothyroxine 125 mcg tablet 125 mcg PO .acb alprazolam 0.25 mg tablet 0.25 mg PO TID PRN (Reason: anxiety) Patient Comments: 0.25mg PO TID PRN for anxiety oxycodone-acetaminophen 5-325 mg tablet 1 tab PO DAILY PRN (Reason: pain) diltiazem HCl 120 mg capsule,extended release 24hr 120 mg PO .QD Xarelto 20 mg tablet 20 mg PO DAILY Rx Instructions: must administer with evening meal PreserVision Lutein 226-90-0.8-5 mg capsule 1 cap PO BID atorvastatin 20 mg tablet 20 mg PO QPM cholecalciferol (vitamin D3) [Vitamin D3] 125 mcg (5,000 unit) tablet 125 mcg PO DAILY biotin 10,000 mcg tablet,disintegrating 10,000 mcg PO DAILY lisinopril 10 mg tablet 10 mg PO DAILY Novolin N FlexPen 100 unit/mL (3 mL) insulin pen 1 unit SUBCUT ACHS Patient Comments: (if BLOOD SUGAR is BETWEEN 150-199 INJECT 3 (THREE) UNITS, if BETWEEN 200-249 INJECT FOUR UNITS, if BETWEEN 250-299 INJECT 7 (SEVEN) UNITS, if BETWEEN 300-349 INJECT TEN UNITS, if BETWEEN 350-399 INJECT 12 UNITS, if 400 or great INJECT 14 UNITS) Rx Instructions: SLIDING SCALE famotidine 20 mg tablet 20 mg PO .qhs gabapentin 100 mg capsule 100 mg PO TID omeprazole 40 mg capsule,delayed release(DR/EC) 40 mg PO .acb Discontinued bumetanide 1 mg tablet 1 mg PO Q12H ciprofloxacin HCl 250 mg tablet 250 mg PO DAILY Rx Instructions: 07/21/24-07/27/24 Print Language: Luxembourger Forms: Portal Instructions Follow Up Appointments: F/u with PCP in one week
--- NOTE | 2024-07-25 11:17 | CM.NOTE ---
Medicare Outpatient Observation Notice discussed with pt, pt verbalizes understanding and signs paper. Original given to pt and copy placed in pt's chart.
--- NOTE | 2024-07-25 12:09 | CM.NOTE ---
Discharge education discussed with pt and regarding CHF. Talked with pt about daily weights and recording weights (taking information to f/u appts). Also discussed importance of taking medications as prescribed, attending regular doctor appts, decreasing fluid intake. Talked with pt about new medications ordered and reason for taking medications. Pt will f/u with primary care doctor at discharge. Pt and both verbalize understanding and deny any questions.
--- NOTE | 2024-07-25 14:08 | NUTR.NU ---
Pt was admitted 07/24/24 (her fifth admission this calendar year that I'm aware of). Diet education was provided 04/30/24 during a previous admission, and she has declined nutritional follow-ups during subsequent hospital stays. Today she was discharged before Dietitian was able to connect w/her; Dietitian will telephone and offer outpatient counseling d/t poorly-controlled IDDM, renal function impairment, and CHF.
--- NOTE | 2024-07-25 14:39 | NUTR.NU ---
Telephoned Kati at home; left VM offering outpatient diet counseling. Will continue to follow PRN.
--- NOTE | 2024-07-28 10:36 | CM.DCFOLLOWU ---
Person spoke with: Kati How are you feeling? Much better How is your pain? None Did you understand your discharge instructions? Yes Do you have any questions about your discharge instructions? No Were you given any prescriptions at discharge? Yes Were you able to get your prescriptions filled? Yes Do you understand how to take your medications as ordered? Yes Do you have any questions about your follow up appointment and do you plan to keep your follow up appointment? I didn't know I had an appointment. Pt wrote down date and time and will go to f/u appt. Is there anything else that you would like to discuss? No Questions/Comments/Concerns/Other:
== END 2024-07-25 12:10 | disposition home or self-care (01) ==
LOC: ER 15:03 → MS 16:32
PROVIDERS: Admitting Provider Internal Medicine; Emergency Provider Emergency Medicine; PCP Family Medicine; Visit Provider Internal Medicine
DX: I13.0 Hypertensive heart and chronic kidney disease with heart failure and stage 1 through stage 4 chronic kidney disease, or unspecified chronic kidney disease (principal); I50.33 Acute on chronic diastolic (congestive) heart failure; N18.31 Chronic kidney disease, stage 3a; E11.22 Type 2 diabetes mellitus with diabetic chronic kidney disease; E11.65 Type 2 diabetes mellitus with hyperglycemia; I48.0 Paroxysmal atrial fibrillation; Z79.01 Long term (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 anticoagulants; E66.01 Morbid (severe) obesity due to excess calories; Z68.41 Body mass index [BMI] 40.0-44.9, adult; E03.9 Hypothyroidism, unspecified; Z79.890 Hormone replacement therapy; Z79.899 Other long term (current) drug therapy; Z79.4 Long term (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 insulin
CPT/HCPCS: 36415; 71045; 71046; 80048; 80053; 82948; 83880; 84484; 85025; 93005; 94761; 96372; 96374; 96376; 99285; G0378; J1650; J1940

== ENCOUNTER 2024-07-29 09:03 | Day surgery (SDC) | payer MEDICARE, SELFPAY ==
[2024-07-29 10:03] VITALS: BP 150/68; PULSE 58; TEMP 36.4; O2SAT 97
[2024-07-29 10:08] LABS: Glucometer 269 mg/dL (74-106)
[2024-07-29 10:31] VITALS: BP 166/80; PULSE 60; O2SAT 93
[2024-07-29 10:32] VITALS: BP 166/69; PULSE 60; O2SAT 93
[2024-07-29] MEDS: BUPIVACAINE HCL 0.25% PF 25 MG/10 ML VIAL 4 ML INJ (10:36)
--- NOTE | 2024-07-29 10:47 | W.PM.PROCNOT ---
Date of procedure: 07/29/24 Pre-op diagnosis: Lumbar spondylosis Post-op diagnosis: same as pre-op Procedure: Bilateral Lumbar 3/4, 4/5 medial branch block Preop diagnosis includes pain secondary to spondylosis, Postop diagnosis same Under fluoroscopic guidance Solution injected: 2milliliters Marcaine 0.25% Anesthesia :none Immediate complications none Time out process compliant After informed consent obtained from the patient placed in the Prone proposition . area was prepped and draped in a sterile fashion using betadine .25 gauge spinal needle inserted over each of the above mentioned target areas . [place] were directed towards the target under fluoroscopic guidance . after encountering each of the targets , no indication of intravascular intraneuronal or intrathecal needle tip placement. Then 0 .5 to 1 Milliliter was injected at each level. [place] removed postoperatively. patient transferred to recovery in stable condition to be discharged home after meeting criteria Anesthesia: Local Surgeon: Sri Soliz Condition: stable
== END 2024-07-29 10:43 | disposition home or self-care (01) ==
LOC: SURGOUT 09:04
PROVIDERS: PCP Family Medicine; Visit Provider Anesthesiology Pain Medicine
DX: M47.816 Spondylosis without myelopathy or radiculopathy, lumbar region (principal); Z79.4 Long term (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 insulin
CPT/HCPCS: 36415; 64493; 64494; 82948; J0665

== ENCOUNTER 2024-08-06 14:09 | Outpatient (OUT) | payer MEDICARE, SELFPAY ==
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
== END 2024-08-06 14:10 | disposition home or self-care (01) ==
LOC: PM 14:09
PROVIDERS: PCP Family Medicine; Visit Provider Nurse Practitioner
DX: M47.816 Spondylosis without myelopathy or radiculopathy, lumbar region (principal); E11.8 Type 2 diabetes mellitus with unspecified complications
CPT/HCPCS: G0463

== ENCOUNTER 2024-08-27 14:38 | Outpatient (OUT) | payer MEDICARE, SELFPAY ==
--- NOTE | 2024-08-27 14:33 | CA_ITS ---
Patient Name: JOE CALL MR#: [id number] : 1945 Exam Date: 08/27/2024 Ordering Doctor: YAMEL MCCRACKEN CNP ECHOCARDIOGRAM REPORT PROCEDURE: CA ECHO DOPPLER COMPLETE INDICATIONS: Diastolic heart failure COMPARISON: None. DESCRIPTION: COMPLETE ECHOCARDIOGRAM Real-time transthoracic echocardiography with 2D, M-mode, spectral and color flow Doppler performed. QUALITY: Technical quality was good. LEFT VENTRICLE: Normal chamber size. Moderate concentric left ventricular hypertrophy. Global left ventricular systolic function is normal. No left ventricular outflow obstruction. LV EF: Estimated left ventricular ejection fraction is 65%. DIASTOLIC: Grade 2 diastolic dysfunction. ATRIAL SEPTUM: Doppler studies reveal a possible PFO vs. a small ASD. LEFT ATRIUM: Severe dilatation. RIGHT ATRIUM: Moderate dilatation. RIGHT VENTRICLE: Mild dilatation. Normal right ventricular systolic function. TRICUSPID VALVE: Normal mobility and thickness. No stenosis with mild regurgitation. No evidence of pulmonary hypertension. RVSP 31 mmHg MITRAL VALVE: Mildly thickened with normal mobility. No evidence of mitral valve stenosis. Moderate mitral annular calcification. Mild mitral regurgitation. AORTIC VALVE: Trileaflet appearance with focal calcifications. Normal leaflet mobility. No evidence of aortic valve stenosis. Mild aortic regurgitation. AORTIC ROOT: Normal diameter and appearance. PULMONIC VALVE: Normal thickness and mobility. No stenosis. Trivial regurgitation. PERICARDIUM: No evidence of pericardial effusion. IVC: Collapses with inspirations. Normal size. PLEURA: CONCLUSION: 1. Moderate concentric left ventricular hypertrophy with normal systolic function. LVEF is 65%. 2. Mildly dilated right ventricle with normal systolic function. 3. Moderate to severe biatrial dilatation. 4. Mild mitral, tricuspid and aortic regurgitation. 5. Grade 2 diastolic dysfunction. 6. Normal right-sided pressures. 7. Possible PFO versus small ASD seen by color Doppler imaging. Adult Echocardiography Procedure Report Left Ventricle LVEDD (3.7 - 5.6 cm): 4.14 cm LVESD (2.2 - 4.0 cm): 2.61 cm LVIVS thickness (0.6 - 1.2 cm): 1.50 cm LVPW thickness (0.5 - 1.0 cm): 1.36 cm e': 0.06 m/s E - e': 19.02 LVOT Max Gradient: 5.55 mm[Hg] LVOT Area (cm2): 1.18 m/s Peak Velocity (LVOT): 1.18 m/s Mean Velocity (LVOT): 0.92 m/s LVOT Diameter 2.08 cm Left Ventricular Ejection Fraction: 65 % Left Atrium LA Volume Index (2D A2C): 58.82 ml/m2 Left Atrium Systolic Dimension: 4.93 cm Mitral Valve MV E to A Ratio: 1.14 Mitral Valve A-Wave Peak Velocity: 1.08 m/s Mitral Valve E-Wave Peak Velocity: 1.23 m/s Right Ventricle RV Internal Diastolic Dimension: 4.39 cm Aorta AO Root Diam: 3.07 cm Ascending Ao Diam: 2.90 cm Aortic Valve AoV Area (Peak Jean Paul): 2.26 cm2, 2.26 cm2 AoV Area (VTI): 2.34 cm2, 2.34 cm2 Deceleration Henderson: 1.19 m/s2 Pressure Half-Time: 753.95 ms Peak Velocity(Antegrade Flow): 1.77 m/s Peak Gradient(Antegrade Flow): 12.55 mm[Hg] Mean Velocity(Antegrade Flow): 1.19 m/s Mean Gradient(Antegrade Flow): 6.72 mm[Hg] Velocity Time Integral: 48.88 cm Tricuspid Valve Peak Velocity (Regurgitant Flow): 2.66 m/s, 2.47 m/s Pulmonic Valve Mean Gradient: 3.50 mm[Hg], 3.14 mm[Hg] Mean Velocity: 0.90 m/s, 0.84 m/s Peak Velocity: 1.14 m/s Peak Gradient: 5.49 mm[Hg], 5.00 mm[Hg] Right Atrium Right Atrium Systolic Pressure: 60.67 ml, 60.67 ml Dictated by: Akira Kaplan M.D. on 08/28/2024 at 17:09 Approved by: Akira Kaplan M.D. on 08/28/2024 at 17:28
== END 2024-08-27 14:39 | disposition home or self-care (01) ==
LOC: CARD 14:39
PROVIDERS: PCP Family Medicine; Visit Provider Nurse Practitioner Family
DX: I50.32 Chronic diastolic (congestive) heart failure (principal)
CPT/HCPCS: 93306

== ENCOUNTER 2024-09-03 15:20 | Outpatient (OUT) | payer MEDICARE, SELFPAY ==
--- OUTSIDE RECORDS SUMMARY | 2024-09-03 15:26 | XMS_ITS | CCD ---
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 Name Role Phone UNKNOWN, PROVIDER Unavailable Unavailable UNKNOWN, PROVIDER Unavailable Unavailable NIC BRYAN Unavailable Unavailable Akbar Cui II Unavailable SHANTEL STEVEN Primary Care Physician Shantel Steven Unavailable DR SHANTEL STEVEN Primary Care Unavailable YAMEL MCCRACKEN Consulting Unavailable YAMEL MCCRACKEN Admitting Unavailable YAMEL MCCRACKEN Attending Unavailable MISC, DR MENA Consulting Unavailable MISC, DR MENA Admitting Unavailable MISC, DR MENA Attending Unavailable TENIHSA, DR SHANTEL Alvarado Primary Care Unavailable TENISHA, [...] Provider MD Shantel Steven Primary Care Provider MD Shantel Steven Attending Provider Shantel Steven Attending Unavailable Shantel Steven Admitting Unavailable JovitaEloina lacey Referring Unavailable JovitaEloina lacey Attending Unavailable JovitaEloina lacey F Admitting Unavailable Shantel Steven Consulting Unavailable Shantel Steven Primary Care Unavailable Jesus Barbour Attending Unavailable Jesus Barbour Admitting Unavailable Shantel Steven Primary Care Unavailable TEODORA GARCIA Attending Unavailable SHANTEL STEVEN Referring Unavailable CHRISTEL CHACON Attending Unavailable SHANTEL STEVEN Referring Unavailable MD Shantel Steven Attending Provider [phone] RICA KAPLAN Attending Unavailable MICHELA DELACRUZ Attending Unavailable RICA KAPLAN Attending Unavailable YAMEL MCCRACKEN Attending Unavailable Allergies Allergy Classification Reported Allergen(s) Allergy Type Date of Onset Reaction(s) Facility (1 source) Iodine (And Iodine Containting Drugs) Drug allergy (disorder) 03-04-20 12 [facility] Rep[facility] (20 sources) Shellfish; Translations: [Shellfish] Food allergy (disorder) 03-04-20 12 rash, Eruption of skin (disorder) [facility] (18 sources) Sulfonamides (Antibiotic); Translations: [SULFA (SULFONAMIDE ANTIBIOTICS)] Drug allergy (disorder) 03-04-20 12 Rash [facility] (20 sources) Sulfacetamide Drug Allergy 02-15-20 24 diarrhea [facility] (13 sources) Contrast media; Translations: [contrast media (iodine-based)] Drug allergy Unknown (qualifier value) [facility] [place] (2 sources) Sulfonamides (Antibiotic); Translations: [sulfa drugs] Drug allergy Diarrhea (finding) [facility] (2 sources) Glucosamine Drug Allergy [facility] (2 sources) Iodine (And Iodine Containting Drugs) Drug allergy (disorder) 08-09-20 17 [facility] Rep[facility] (11 sources) Contrast media Propensity to adverse reactions 11-18-[address] [facility] [facility] Other (12 sources) Iodine; Translations: [IODINE] Drug Allergy 10-30-20 14 Unknown [facility] (11 sources) Substance with sulfonamide structure and antibacterial mechanism of action (substance) Drug allergy Unknown [employer] Other (11 sources) Dyes Propensity to adverse reactions Comment:CT Dyes,Dyes,IVP Dyes [facility] [employer] [facility] Other (16 sources) Shellfish; Translations: [shellfish derived] Allergy to substance 10-30-20 14 [facility] (16 sources) Iodinated Contrast Media; Translations: [Iodinated Contrast Media] Allergy to substance 02-15-20 24 [facility] (1 source) Sulfacetamide Drug Allergy 07-16-20 24 [facility] Repository (1 source) Sulfonamides (Antibiotic) Drug allergy (disorder) 07-16-20 24 [facility] Rep[facility] (1 source) Chocolate; Translations: [CHOCOLATE FLAVOR] Propensity to adverse reactions to drug (disorder) 01-17-20 23 [facility] Medications Current Medications Medication Drug Class(es) Dates Sig (Normalized) Sig (Original) 8 Hour Arthritis Pain Reliever (14 sources) acetaminophen 325 mg / oxyCODONE hydrochloride 5 mg oral tablet (20 sources) Opioid Agonist Start: 08-07-2024 take 1 tablet by mouth once daily Oxycodone-Acetami nophen Active 1 TAB PO Daily August 07, 2024 Start: 07-07-2024 End: 08-07-2024 take 1 tablet by mouth once daily Oxycodone-Acetaminophen Discontinued 1 T AB PO Daily July 07, 2024 August 07, 2024 10:19am Start: 07-07-2024 Start: 06-07-2024 End: 06-07-2024 take 1 tablet by mouth once daily Oxycodone-Acetaminophen Discontinued 1 T AB PO Daily 30 June 07, 2024 June 07, 2024 7:30am Start: 06-07-2024 End: 06-07-2024 Start: 06-07-2024 End: [...] 19, 2021 3:13am Start: 06-12-2021 End: 06-19-2021 ascorbic acid 113 mg / coppe r [...] Ordered bifidobacterium infantis 4 mg oral capsule (8 sources) Start: 06-05-2024 take 1 capsule by mouth once daily Bifidobacterium Infantis (Align) 4 mg capsule Active 4 MG PO Daily June 05, 2024 12:00am biotin 10 mg oral capsule (20 sources) Start: 06-05-2024 take 87536 ug by mouth once daily Biotin Active 64743 MCG PO daily June 05, 2024 12:00am Start: 01-17-2024 End: 04-03-2024 take 5 mg by mouth once daily Biotin Discontinued 5 MG PO Daily January 17, 2024 1:00am April 03, 2024 11:46am take 1 capsule by [facility] every twenty-four hours Biotin 5 [...] 2024 12:02pm take 1 capsule by mo [facility] every twenty-four hours Vitamin D3 125 MCG [...] Daily, # 30 EA, Refills(s) 11, Pharmacy: [id number], 967.1, cm, 03/07/21 13:49:00 EDT, Height/Length Dosing, 121.8, kg, 03/07/21 13:49:00 EDT, Weight Dosing Start Date: 03/07/21 Status: Ordered ciprofloxacin 250 mg oral tablet (1 source) Quinolone Antimicrobial Start: 07-21-2024 take 250 mg by mouth once daily Ciprofloxacin Hcl Active 250 MG PO Daily July 21, 2024 12:00am Dilt-CD 120 mg (14 sources) take 1 [...] 2021 12:00am take 1 capsule by mo [facility] every twelve hours dilTIAZem HCl ER 120 [...] Orally Once a day Active Flash Glucose Scanning Reade r ([employer]estyle Familia 2 [place]) misc (1 source) Start: 07-16-2024 Flash Glucose Scanning [place] (Freestyle Familia 2 [place]) misc Active 0 .Route July 16, 2024 12:00am As directed Flash Glucose Sensor (Freest yle Familia 2 Sensor) kit (8 sources) Start: 07-17-2024 Flash Glucose Sensor (Freestyle Familia 2 Sensor) kit Active 0 .ROUTE .COMPLEX 1 July 17, 2024 11:19am USE DIRECTED to test BLOOD SUGAR DAILY *change EVERY 14 days * Start: 05-07-2024 End: 07-17-2024 Flash Glucose Sensor (Freest yle Familia 2 Sensor) kit Discontinued 0 .Route 1 May 07, 2024 12:00am July 17, 2024 11:19am As directed Start: 05-07-2024 Flash Glucose Sensor (Freestyle Familia 2 Sensor) kit Active 0 .Route 1 May 07, 2024 12:00am As directed furosemide [...] insulin isophane, human 100 unt/ml pen injector (14 sources) Start: 01-24-2024 inject 14 [IU] by [...] 14 unit ketoconazole 20 mg/ml topical cream (15 sources) Azole Antifungal Start: 08-07-2024 Ketoconazole Active 1 APPLIC TOPICAL Twice daily August 07, 2024 12:00am Start: 02-15-2024 End: 04-29-2024 Ketoconazole Discontinued 1 APPLIC TOPICAL Daily February 15, 2024 12:00am April 29, 2024 1:36pm Start: 02-15-2024 End: 04-29-2024 Lantus Solostar Pen (1 source) Start: 07-27-2022 inject 35 [IU] by subcutaneous injection once daily at bedtime Lantus Solostar Pen 35 unit(s), SubCutaneous, Once a day (at bedtime), Refill(s) 0 Start Date: 07/27/22 Status: Ordered Loperamide (14 sources) Opioid Agonist metoprolol tartrate 100 mg oral tablet (20 sources) beta-Adrenergi c Khadijah Start: 05-27-2024 End: 06-07-2024 Metoprolol Tartrate Active 0 .ROUTE .COMPLEX 270 June 07, 2024 7:28am TAKE 1 AND [...] by joesph th every twenty-four hours nystatin 900215 unt/ml / triamcinolone acetonide 1 mg/ml topical cream (4 sources) Polyene Antifungal, Corticosteroid Start: 07-07-2024 Nystatin-Triamcinolone Active 1 APPLIC TOPICAL Twice daily July 07, 2024 12:00am Start: 07-07-2024 pantoprazole 40 mg delayed release oral tablet [...] capsule Orally Once a day Active Vitamins A,C,S-Opqc-Siotad (Preservision Areds) 4,296 mcg-226 mg-90 mg capsule (11 sources) Start: 01-17-2024 take 1 capsule by mouth twice daily Vitamins A,C,T-Edum-Bczuqk (Preservision Areds) 4,296 mcg-226 mg-90 mg capsule [...] Drug Class(es) Dates Sig (Normalized) Sig (Original) [id number] 200 actuat albuterol 0.09 mg/actuat metered dose inhaler (19 sources) beta2-Adrenergic Agonist Start: 01-17-2024 End: 04-03-2024 [...] tablet (20 sources) Benzodiazepine Start: 06-05-2024 End: 07-07-2024 take 0.25 mg by mouth twice daily Alprazolam Discontinued 0.25 MG PO Twice daily June 07, 2024 7:27am July 07, 2024 12:55pm Start: 01-17-2024 End: 03-25-2024 take 0.25 mg by mouth twice daily Alprazolam Discontinued 0.25 MG PO Twice daily January 30, 2024 12:55pm March 25, 2024 3:46pm Start: 01-17-2024 End: 01-30-2024 take 0.25 mg by mouth three times daily Alprazolam Discontinued 0.25 MG PO Three times daily January 17, 2024 1:00am January 30, 2024 12:56pm Start: 01-22-2024 ALPRAZolam 0.2 5 mg TAKE 1 TABLET [...] Start: 03-05-2023 take 1 tablet by joesph three times [...] bedtime Orally Once a day Not-Taking amylase 151388 unt / lipase 86673 unt / protease 14845 unt delayed release oral capsule (15 sources) Start: End: Ukscgx-Lzagkqbj-Gdb lase (Creon) 24,000-76,000 -120,000 unit capsule,delayed release(DR/EC) Discontinued 1 - 2 CAP PO 1-2 TIMES DAILY June 11, 2021 12:00am June 19, 2021 3:12am Start: 06-11-2021 End: 06-19-2021 Start: 05-10-2021 Creon 24,000 u nits oral delayed release capsule See Instructions, take 3 caps with each meal and 2 caps with each snack., # 390 caplet(s), Refills(s) 0, Pharmacy: [id number], 165.1, cm, 04/18/21 13:02:00 EDT, Height/Length Dosing, 116.4, kg, 04/18/21 13:02:00 EDT, Weight Dosing Start Date: 05/10/21 Status: Ordered carvedilol 6.25 mg oral tablet (14 sources) alpha-Adrenergic Khadijah, beta-Adrenergic Khadijah Start: 06-12-2021 End: 01-17-2024 take 6.25 mg by mouth twice daily at mealtime Carvedilol Discontinued 6.25 MG PO Twice daily with meals 60 June 12, 2021 12:00am January 17, 2024 5:18pm cefdinir 300 mg oral capsule (14 sources) Cephalosporin Antibacterial Start: 06-12-2021 End: 01-17-2024 [...] day Active fluconazole 100 mg oral tablet (14 sources) Azole Antifungal Start: 06-12-2021 End: 01-17-2024 [...] Insulin) 100 unit/mL (3 mL) Insulin Pen (11 sources) Start: 06-12-2021 End: 01-15-2024 inject 14 [...] 3:13pm ketorolac tromethamine 5 mg/ml ophthalmic solution (14 sources) Nonsteroidal Anti-inflammatory Drug, Cyclooxygenase Inhibitor Start: 06-11-2021 End: 06-12-2021 Ketorolac Discontinued DROPS SOLUTION/ DROPS June 11, 2021 12:00am June 12, 2021 3:16am Start: 06-11-2021 End: 06-12-2021 levothyroxine sodium 0.125 mg oral tablet (20 sources) l-Thyroxine Start: 04-03-2024 End: 07-07-2024 take 1 tablet by mouth once daily Levothyroxine Discontinued 0 .ROUTE .COMPLEX June 07, 2024 7:28am July 07, 2024 12:55pm TAKE 1 TABLET BY MOUTH DAILY Start: 04-03-2024 End: 07-07-2024 Start: 04-03-2024 End: 04-03-2024 take 125 ug [...] swish and swallow Start: 01-17-2024 End: 07-16-2024 Nystatin Discontinued 1 APPL IC TOPICAL Twice daily June 05, 2024 12:06pm July 16, 2024 10:36am Start: 01-17-2024 End: 07-16-2024 Nystatin [id number] UNIT/GM 1 application Externally Twice a day for 10 days Active Nystatin [id number] UNIT/GM 1 application Externally Twice a day for 10 days Active [place] 5-Bpb-Lxt-Fish Oil (Fish Oil) 1,000 mg (120 mg-180 mg) capsule (11 sources) Start: 01-17-2024 End: 04-03-2024 take 1 capsule by mouth once daily [place] 9-Xgo-Xpb-Fish Oil (Fish Oil) 1,000 mg (120 mg-180 mg) capsule Discontinued 1 CAP PO Daily January 17, 2024 1:00am April 03, 2024 11:49am Start: 01-17-2024 take 1 capsule by mo [facility] once daily Yorklyn 6-Omo-Mdw-Fish Oil (Fish Oil) 1,000 mg (120 mg-180 mg) capsule Active 1 CAP PO Daily January 17, 2024 1:00am 24 hr oxybutynin chloride 10 mg extended release oral tablet (14 sources) Cholinergic Muscarinic Antagonist Start: 02-15-2024 End: 06-05-2024 take 10 mg by mouth once daily Oxybutynin Chloride Discontinued 10 MG PO Daily February 15, 2024 12:00am June 05, 2024 12:07pm selenomethionine 0.2 mg oral tablet (14 sources) Start: 01-17-2024 End: 04-03-2024 take 200 ug by mouth once daily Selenomethionine Discontinued 200 MCG PO Daily January 17, 2024 1:00am April 03, 2024 11:51am spironolactone 50 mg oral tablet (20 sources) Aldosterone Antagonist Start: 06-05-2024 End: 07-16-2024 take 50 mg by mouth once daily Spironolactone Discontinued 50 MG PO Daily June 05, 2024 12:00am July 16, 2024 10:38am Start: 01-17-2024 End: 05-07-2024 take 25 mg by mouth once daily Spironolactone Disconti nued 25 MG PO Daily January 17, 2024 1:00am May 07, 2024 12:01pm take 1 tablet by joesph th every twenty-four hours Spironolactone 25 MG 1 tablet Orally Once a day Active sucralfate 1000 mg oral tablet (20 sources) [...] venlafaxine 37.5 mg extended release oral capsule (14 sources) Serotonin and Norepinephrine Reuptake Inhibitor Start: 06-11-2021 End: 01-17-2024 take 37.5 mg by mouth once daily Venlafaxine Discontinued 37.5 MG PO Daily June 11, 2021 12:00am January 17, 2024 5:18pm Problems Active Problems Problem Classification Problem Date Documented Date Episodic/Chronic Acute and unspecified renal failure (1 source) Acute kidney failure, unspecified Episodic Anxiety disorders (14 sources) Anxiety; Translations: [Anxiety disorder, unspecified] 01-30-2024 [...] on chronic diastolic (congestive) heart failure] Onset: Chronic Coronary atherosclerosis and other heart disease (20 sources) Coronary arteriosclerosis; Translations: [Atherosclerotic heart disease of [place] coronary artery without angina pectoris] Onset: 2 01-17-2024 Chronic Coronary atherosclerosis and other heart disease (1 source) Coronary angioplasty status; Translations: [CORONARY ANGIOPLASTY STATUS] Onset: 3 Episodic Diabetes mellitus with complications (20 sources) Disorder of kidney due to diabetes mellitus; Translations: [Type 2 diabetes mellitus with diabetic chronic kidney disease] Onset: 3 07-27-2022 Chronic Diabetes mellitus without complication (16 sources) Diabetes mellitus; Translations: [Type 2 diabetes mellitus without complications] Onset: 2 07-27-2022 Chronic Diabetes mellitus without complication (14 sources) Hyperglycemia; Translations: [Hyperglycemia, unspecified] 06-12-2021 Episodic Disorders of lipid metabolism (20 sources) Hypercholesterolemia; Translations: [Hyperlipidemia] Onset: 2 07-27-2022 Chronic Diverticulosis and diverticulitis (20 sources) Diverticulitis; Translations: [Diverticulitis of intestine, part unspecified, without perforation or abscess without bleeding] Chronic Esophageal disorders (20 sources) Gastroesophageal reflux disease; Translations: [Gastroesophageal reflux disease without esophagitis] Onset: 3 07-27-2022 Chronic Essential hypertension (20 sources) Hypertensive disorder; Translations: [Essential (primary) hypertension] Onset: 2 07-27-2022 Chronic Fluid and electrolyte disorders (10 sources) Dehydration; Translations: [Hypokalemia] Onset: 3 Episodic Genitourinary symptoms and ill-defined conditions (20 sources) Genuine stress incontinence; Translations: [Stress incontinence (female) (male)] Chronic Genitourinary symptoms and ill-defined conditions (5 sources) Dysuria; Translations: [Dysuria] Onset: 4 07-17-2024 Episodic Hypertension with complications and secondary hypertension (20 sources) Chronic kidney disease due to hypertension; Translations: [Hypertensive chronic kidney disease with stage 1 through stage 4 chronic kidney disease, or unspecified chronic kidney disease] Onset: 3 Chronic Immunizations and screening for infectious disease (17 sources) Immunization due; Translations: [Encounter for immunization] 01-18-2024 Episodic Inflammation; infection of eye (except that caused by tuberculosis or sexually transmitteddisease) (14 sources) External hordeolum; Translations: [Hordeolum externum unspecified [...] sources) Long-term current use of insulin; 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] 01-17-2024 Episodic Other aftercare (2 sources) skilled nursing (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 insulin; Translations: [[facility] CURRENT USE OF INSULIN] Onset: 3 Episodic Other aftercare (1 source) Other usp (current) drug therapy; Translations: [OTH [facility] CURRENT DRUG THERAPY] Onset: 3 Episodic Other aftercare (1 source) skilled nursing (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 anticoagulants; Translations: [[facility] CURRNT USE 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] Onset: 3 Episodic Other [...] Chronic Other diseases of kidney and ureters (14 sources) Secondary hyperparathyroidism of renal origin; Translations: [Secondary hyperparathyroidism (of renal origin)] 03-25-2024 Chronic Other diseases of veins and lymphatics (14 sources) Lymphedema; Translations: [Lymphedema, not elsewhere classified] 01-17-2024 Chronic Other eye disorders (14 sources) Chalazion; Translations: [Chalazion right eye, unspecified [...] UNSPECIFIED] Onset: 2 Episodic Other gastrointestinal disorders (10 sources) Swollen abdomen; Translations: [Generalized intra-abdominal and pelvic swelling, mass and lump] 05-07-2024 Episodic Other gastrointestinal disorders (9 sources) Generalized intra-abdominal and pelvic swelling, mass and lump; Translations: [Abdominal or pelvic swelling, mass, or lump, generalized] 05-07-2024 Episodic Other lower respiratory disease (4 sources) Shortness of breath; Translations: [SHORTNESS OF BREATH] Onset: 3 Episodic Other lower respiratory disease (14 sources) Dyspnea; Translations: [Dyspnea, unspecified] 06-12-2021 Episodic Other nervous system disorders (8 sources) Tremor, unspecified; Translations: [Abnormal involuntary movements] Episodic Other nervous system disorders (7 sources) Tremor; Translations: [Tremor, unspecified] 06-16-2024 Episodic Other nutritional; endocrine; and metabolic disorders (20 sources) Body mass index 40+ - severely obese; Translations: [Morbid (severe) obesity due to excess calories] Chronic Other nutritional; endocrine; and metabolic disorders (2 sources) Morbid (severe) obesity due to excess [...] Chronic Other nutritional; endocrine; and metabolic disorders (14 sources) Intolerance to lactose; Translations: [Lactose intolerance, unspecified] 01-17-2024 Chronic Other nutritional; endocrine; and metabolic disorders (20 sources) Loss of appetite; Translations: [Anorexia] Episodic Other skin disorders (10 sources) Localized swelling, mass and lump, right upper limb; Translations: [Mass of right axilla] 07-07-2024 Episodic Other upper respiratory infections (6 sources) Pharyngitis; Translations: [Acute pharyngitis, unspecified] 06-25-2024 [...] Retinal detachments; defects; vascular occlusion; and retinopathy (15 sources) Unspecified macular degeneration; Translations: [Degenerative disorder [...] Translations: [Post-surgery back pain] 07-27-2022 Episodic Syncope (14 sources) Near syncope; Translations: [Syncope and collapse] 06-19-2021 Episodic Thyroid disorders (20 sources) Hypothyroidism; Translations: [Hypothyroidism, unspecified] 07-27-2022 Chronic Unclassified (1 source) CONTACT W/AND (SUSP) EXPOS COVID-19; Translations: [CONTACT W/AND (SUSP) EXPOS COVID-19] Onset: 3 Unclassified (1 source) Low back pain, unspecified; Translations: [Low back pain, unspecified] Onset: 4 Urinary tract infections (19 sources) Urinary tract infectious disease; Translations: [Urinary tract infection, site not specified] 05-07-2024 Episodic Past or Other Problems Problem Classification Problem Date Documented Da te Episodic/Chronic Other connective tissue disease (2 sources) Repeated falls; Translations: [Repeated falls] Onset: 4 Episodic Other nervous system disorders (2 sources) Other abnormalities of gait and mobility; Translations: [Other abnormalities of gait and mobility] Onset: 4 Episodic Phlebitis; thrombophlebitis and thromboembolism (2 sources) Phlebitis and thrombophlebitis of superficial vessels of unspecified lower extremity; Translations: [Phlebitis and thrombophlebitis of superficial vessels of unspecified lower extremity] Onset: 4 Episodic Residual codes; unclassified (1 source) Generalized edema; Translations: [GENERALIZED EDEMA] Onset: 2 Episodic Results Test Name Value Interpretation Reference Range Facility Office Visiton 08-20-2024 Follow-up visit [id number] Sae Callalisha Cramer 1945 F Date Provider Department Center 08/20/2024 Y[facility]EL [facility] Family History Problem Relation Age of Onset Coronary artery disease Other Diabetes Other Polycystic kidney disease Other Family Status - Relation Status Age at Other Level of Service:86172 DC OFFICE/OUTPATIENT ESTABLISHED MOD MDM 30 MIN Reason for Visit and Comments: Congestive Heart Failure [127] Normal [facility] Basophils Auto (Bld) [#/Vol] on 07-25-2024 Basophils (Bld) [#/Vol] 0.1 10 3/uL 0.0-0.1 [facility] Basophils/100 WBC Auto (Bld) on 07-25-2024 Basophils/100 WBC (Bld) 1.2 % 0.2-2.0 [facility] Eosinophils/100 WBC Auto (Bl d)on 07-25-2024 Eosinophils/100 WBC (Bld) 1.6 % 0.9-7.0 [facility] Erythrocyte distribution wid th Auto (RBC) [Ratio]on 07-25-2024 Erythrocyte distribution width (RBC) [Ratio] 13.7 % 11.0-15.0 [facility] Estimated glomerular filtrat ion rate (GFR) non- Americanon 07-25-2024 GFR/1.73 sq M.predicted among non-blacks MDRD (S/P/Bld) [Vol rate/Area] 47 mL/min/{1.73_m2} Low >=60 [facility] Globulin Calc (S) [Mass/Vol] on 07-25-2024 Globulin (S) [Mass/Vol] 4.7 g/dL [facility] Hematocrit Auto (Bld) [Volum e fraction]on 07-25-2024 Hematocrit (Bld) [Volume fraction] 33.6 % Low 36.0-48.0 [facility] Hemoglobin [Mass/volume] in Bloodon 07-25-2024 Hemoglobin (Bld) [Mass/Vol] 11.0 g/dL Low 12.0-16.0 [facility] Laboratory - Chemistry and C hemistry - challengeon 07-25-2024 Albumin [Mass/Vol] 2.3 g/dL Low 3.4-5.0 [facility] ALP [Catalytic activity/Vol] 101 U/L 46-116 [facility] ALT [Catalytic activity/Vol] 14 U/L 14-59 [facility] AST [Catalytic activity/Vol] 13 U/L Low 15-37 [facility] Bilirubin [Mass/Vol] 0.8 mg/dL 0.2-1.0 [facility] Calcium [Mass/Vol] 8.6 mg/dL 8.5-10.1 [facility] Chloride [Moles/Vol] 102 mmol/L 98-107 [facility] CO2 [Moles/Vol] 27.8 mmol/L 21.0-32.0 [facility] Creatinine [Mass/Vol] 1.13 mg/dL High 0.55-1.02 [facility] GFR/1.73 sq M.predicted MDRD (S/P/Bld) [Vol rate/Area] 56 mL/min/{1.73_m2} Low >=60 [facility] Glucose [Mass/Vol] 228 mg/dL High 74-106 [facility] Potassium [Moles/Vol] 3.7 mmol/L 3.5-5.1 [facility] Protein [Mass/Vol] 7.0 g/dL 6.4-8.2 [facility] Sodium [Moles/Vol] 140 mmol/L 136-145 [facility] Urea nitrogen [Mass/Vol] 26.0 mg/dL High 7.0-18.0 [facility] Urea nitrogen/Creatinine [Mass ratio] 23.0 mg/mg [facility] Laboratory - Hematology and Cell countson 07-25-2024 Immature granulocytes/100 WBC (Bld) 0.2 % 0.0-0.5 [facility] Leukocytes [#/volume] correc gali for nucleated erythrocytes in Blood by Automated counon 07-25-2024 WBC corrected for nucl RBC Auto (Bld) [#/Vol] 8.7 10 3/uL 4.0-11.0 [facility] Lymphocytes Auto (Bld) [#/Vo l]on 07-25-2024 Lymphocytes (Bld) [#/Vol] 1.4 10 3/uL 1.2-3.8 [facility] Lymphocytes/100 WBC Auto (Bl d)on 07-25-2024 Lymphocytes/100 WBC (Bld) 15.9 % Low 20.5-60.0 [facility] MCH Auto (RBC) [Entitic mass ]on 07-25-2024 MCH (RBC) [Entitic mass] 29.7 pg 26.7-34.0 [facility] MCHC Auto (RBC) [Mass/Vol]on 07-25-2024 MCHC (RBC) [Mass/Vol] 32.7 g/dL 29.9-35.2 [facility] MCV Auto (RBC) [Entitic vol] on 07-25-2024 MCV (RBC) [Entitic vol] 90.8 fL 81.0-99.0 [facility] Monocytes Auto (Bld) [#/Vol] on 07-25-2024 Monocytes (Bld) [#/Vol] 0.7 10 3/uL 0.3-0.8 [facility] Monocytes/100 WBC Auto (Bld) on 07-25-2024 Monocytes/100 WBC (Bld) 8.2 % 1.7-12.0 [facility] Neutrophils Auto (Bld) [#/Vo l]on 07-25-2024 Neutrophils (Bld) [#/Vol] 6.3 10 3/uL 1.4-6.5 [facility] Neutrophils/100 WBC Auto (Bl d)on 07-25-2024 Neutrophils/100 WBC (Bld) 72.9 % 43.0-75.0 [facility] No Panel Informationon 07-25 Eosinophils # (Auto) 0.1 10 3/uL 0.0-0.7 [facility] Immature Granulocyte # (Auto) 0.02 10 3/uL 0.00-0.03 [facility] Platelet mean volume Auto (B ld) [Entitic vol]on 07-25-2024 Platelet mean volume (Bld) [Entitic vol] 10.3 fL 9.5-13.5 [facility] Platelets Auto (Bld) [#/Vol] on 07-25-2024 Platelets (Bld) [#/Vol] 239 10 3/uL 150-450 [facility] RBC Auto (Bld) [#/Vol]on RBC (Bld) [#/Vol] 3.70 10 6/uL Low 4.20-5.40 [facility] Serum or plasma albumin/glob ulin mass ratioon 07-25-2024 Albumin/Globulin [Mass ratio] 0.5 {ratio} [facility] Serum or plasma anion gap de terminationon 07-25-2024 Anion gap [Moles/Vol] 13.9 mmol/L [facility] Basophils Auto (Bld) [#/Vol] on 07-24-2024 Basophils (Bld) [#/Vol] 0.1 10 3/uL 0.0-0.1 [facility] Basophils/100 WBC Auto (Bld) on 07-24-2024 Basophils/100 WBC (Bld) 0.7 % 0.2-2.0 [facility] Eosinophils/100 WBC Auto (Bl d)on 07-24-2024 Eosinophils/100 WBC (Bld) 1.7 % 0.9-7.0 [facility] Erythrocyte distribution wid th Auto (RBC) [Ratio]on 07-24-2024 Erythrocyte distribution width (RBC) [Ratio] 13.7 % 11.0-15.0 [facility] Estimated glomerular filtrat ion rate (GFR) non- Americanon 07-24-2024 GFR/1.73 sq M.predicted among non-blacks MDRD (S/P/Bld) [Vol rate/Area] 48 mL/min/{1.73_m2} Low >=60 [facility] Hematocrit Auto (Bld) [Volum e fraction]on 07-24-2024 Hematocrit (Bld) [Volume fraction] 34.5 % Low 36.0-48.0 [facility] Hemoglobin [Mass/volume] in Bloodon 07-24-2024 Hemoglobin (Bld) [Mass/Vol] 11.2 g/dL Low 12.0-16.0 [facility] Laboratory - Chemistry and C hemistry - challengeon 07-24-2024 Calcium [Mass/Vol] 8.9 mg/dL 8.5-10.1 [facility] Chloride [Moles/Vol] 104 mmol/L 98-107 [facility] CO2 [Moles/Vol] 26.1 mmol/L 21.0-32.0 [facility] Creatinine [Mass/Vol] 1.11 mg/dL High 0.55-1.02 [facility] GFR/1.73 sq M.predicted MDRD (S/P/Bld) [Vol rate/Area] 58 mL/min/{1.73_m2} Low >=60 [facility] Glucose [Mass/Vol] 247 mg/dL High 74-106 [facility] Natriuretic peptide B (Bld) [Mass/Vol] 6277.0 pg/mL High <=1800.0 [facility] Comment on above: RESULTS CALLED TO YOEL STEWARD RN IN ER BY Mira Martinez at 1430 Potassium [Moles/Vol] 4.1 mmol/L 3.5-5.1 [facility] Sodium [Moles/Vol] 141 mmol/L 136-145 [facility] Urea nitrogen [Mass/Vol] 28.0 mg/dL High 7.0-18.0 [facility] Urea nitrogen/Creatinine [Mass ratio] 25.2 mg/mg [facility] Laboratory - Hematology and Cell countson 07-24-2024 Immature granulocytes/100 WBC (Bld) 0.3 % 0.0-0.5 [facility] Leukocytes [#/volume] correc gali for nucleated erythrocytes in Blood by Automated counon 07-24-2024 WBC corrected for nucl RBC Auto (Bld) [#/Vol] 9.7 10 3/uL 4.0-11.0 [facility] Lymphocytes Auto (Bld) [#/Vo l]on 07-24-2024 Lymphocytes (Bld) [#/Vol] 0.9 10 3/uL Low 1.2-3.8 [facility] Lymphocytes/100 WBC Auto (Bl d)on 07-24-2024 Lymphocytes/100 WBC (Bld) 9.2 % Low 20.5-60.0 [facility] MCH Auto (RBC) [Entitic mass ]on 07-24-2024 MCH (RBC) [Entitic mass] 29.9 pg 26.7-34.0 [facility] MCHC Auto (RBC) [Mass/Vol]on 07-24-2024 MCHC (RBC) [Mass/Vol] 32.5 g/dL 29.9-35.2 [facility] MCV Auto (RBC) [Entitic vol] on 07-24-2024 MCV (RBC) [Entitic vol] 92.0 fL 81.0-99.0 [facility] Monocytes Auto (Bld) [#/Vol] on 07-24-2024 Monocytes (Bld) [#/Vol] 0.5 10 3/uL 0.3-0.8 [facility] Monocytes/100 WBC Auto (Bld) on 07-24-2024 Monocytes/100 WBC (Bld) 5.3 % 1.7-12.0 [facility] Neutrophils Auto (Bld) [#/Vo l]on 07-24-2024 Neutrophils (Bld) [#/Vol] 8.0 10 3/uL High 1.4-6.5 [facility] Neutrophils/100 WBC Auto (Bl d)on 07-24-2024 Neutrophils/100 WBC (Bld) 82.8 % High 43.0-75.0 [facility] No Panel Informationon 07-24 Eosinophils # (Auto) 0.2 10 3/uL 0.0-0.7 [facility] Immature Granulocyte # (Auto) 0.03 10 3/uL 0.00-0.03 [facility] Troponin I High Sensitivity 20.5 pg/mL 4.0-51.3 [facility] Comment on above: CUT-OFF POINTS HAVE [...] mean volume Auto (B ld) [Entitic vol]on 07-24-2024 Platelet mean volume (Bld) [Entitic vol] 10.4 fL 9.5-13.5 [facility] Platelets Auto (Bld) [#/Vol] on 07-24-2024 Platelets (Bld) [#/Vol] 236 10 3/uL 150-450 [facility] RBC Auto (Bld) [#/Vol]on RBC (Bld) [#/Vol] 3.75 10 6/uL Low 4.20-5.40 [facility] Serum or plasma anion gap de terminationon 07-24-2024 Anion gap [Moles/Vol] 15.0 mmol/L [facility] Urine Cultureon 07-17-2024 Bacteria identified Cx Nom (U) ORGANISM: Citrobacter freundii complex (O:CITFRC) [place] Count >100,000 ORGANISM: Proteus mirabilis (O:PROMIR) [place] Count 20,000 Aerobic MIRTHA Charge (NMIC56) ---- [...] RESISTANT TO ALL B-LACTAM DRUGS. PERFORMED BY: [place] [address] PATHOLOGIST [employer] YARDMAN CHOLO YEAGER M.D. Normal [facility] Comment on above: Performed By: #### C UU #### [address] Urine culture routineOrdered By: Shantel Steven on 07-17-2024 Bacteria identified Cx Nom (U) Proteus mirabilis Abnormal [facility] Erythrocyte distribution wid th Auto (RBC) [Ratio]on 07-15-2024 Erythrocyte distribution width (RBC) [Ratio] 13.3 % 11.0-15.0 [facility] Estimated glomerular filtrat ion rate (GFR) non- Americanon 07-15-2024 GFR/1.73 sq M.predicted among non-blacks MDRD (S/P/Bld) [Vol rate/Area] 47 mL/min/{1.73_m2} Low >=60 [facility] Globulin Calc (S) [Mass/Vol] on 07-15-2024 Globulin (S) [Mass/Vol] 4.2 g/dL [facility] Hematocrit Auto (Bld) [Volum e fraction]on 07-15-2024 Hematocrit (Bld) [Volume fraction] 34.9 % Low 36.0-48.0 [facility] Hemoglobin [Mass/volume] in Bloodon 07-15-2024 Hemoglobin (Bld) [Mass/Vol] 11.6 g/dL Low 12.0-16.0 [facility] Laboratory - Chemistry and C hemistry - challengeon 07-15-2024 Bilirubin Ql (U) Negative NEGATIVE [facility] Glucose (U) [Mass/Vol] Negative NEGATIVE [facility] Ketones Ql (U) Negative NEGATIVE [facility] pH (U) 6.5 [pH] 5.0-9.0 [facility] Specific gravity (U) [Rel density] 1.020 1.005-1.025 [facility] Urobilinogen Qn (U) 0.2 {Meka'U}/dL 0.2-1.0 [facility] Albumin [Mass/Vol] 2.6 g/dL Low 3.4-5.0 [facility] ALP [Catalytic activity/Vol] 87 U/L 46-116 [facility] ALT [Catalytic activity/Vol] 18 U/L 14-59 [facility] AST [Catalytic activity/Vol] 14 U/L Low 15-37 [facility] Bilirubin [Mass/Vol] 0.6 mg/dL 0.2-1.0 [facility] Calcium [Mass/Vol] 8.6 mg/dL 8.5-10.1 [facility] Chloride [Moles/Vol] 101 mmol/L 98-107 [facility] CO2 [Moles/Vol] 31.4 mmol/L 21.0-32.0 [facility] Creatinine [Mass/Vol] 1.12 mg/dL High 0.55-1.02 [facility] GFR/1.73 sq M.predicted MDRD (S/P/Bld) [Vol rate/Area] 57 mL/min/{1.73_m2} Low >=60 [facility] Glucose [Mass/Vol] 153 mg/dL High 74-106 [facility] Natriuretic peptide B (Bld) [Mass/Vol] 3410.0 pg/mL High <=1800.0 [facility] Comment on above: RESULTS CALLED TO Bogdan Robin RN at 0840 Potassium [Moles/Vol] 3.6 mmol/L 3.5-5.1 [facility] Protein [Mass/Vol] 6.8 g/dL 6.4-8.2 [facility] Sodium [Moles/Vol] 141 mmol/L 136-145 [facility] Urea nitrogen [Mass/Vol] 43.0 mg/dL High 7.0-18.0 [facility] Urea nitrogen/Creatinine [Mass ratio] 38.4 mg/mg [facility] Laboratory - Specimen inform ationon 07-15-2024 Appearance (U) CLEAR CLEAR [facility] Color (U) LT. YELLOW YELLOW [facility] Laboratory - Urinalysison Leukocyte esterase Test strip Ql (U) Negative NEGATIVE [facility] Mucus Ql (Urine sed) NONE SEEN NONE SEEN [facility] Nitrite Ql (U) Negative NEGATIVE [facility] Protein Ql (U) 100 mg/dL Abnormal NEG/TRACE [facility] Leukocytes [#/volume] correc gali for nucleated erythrocytes in Blood by Automated counon 07-15-2024 WBC corrected for nucl RBC Auto (Bld) [#/Vol] 8.5 10 3/uL 4.0-11.0 [facility] MCH Auto (RBC) [Entitic mass ]on 07-15-2024 MCH (RBC) [Entitic mass] 29.9 pg 26.7-34.0 [facility] MCHC Auto (RBC) [Mass/Vol]on 07-15-2024 MCHC (RBC) [Mass/Vol] 33.2 g/dL 29.9-35.2 [facility] MCV Auto (RBC) [Entitic vol] on 07-15-2024 MCV (RBC) [Entitic vol] 89.9 fL 81.0-99.0 [facility] No Panel Informationon 07-15 Urine Bacteria NONE SEEN #/HPF NONE SEEN [facility] Urine Occult Blood TRACE-I NEGATIVE [facility] Urine RBC 0-2 #/HPF 0-2 [facility] Urine Squamous Epithelial Cells FEW #/LPF Abnormal NONE/RARE [facility] Urine WBC NONE SEEN #/HPF NONE SEEN [facility] NONE SEEN #/HPF NONE SEEN [facility] Negative NEGATIVE [facility] TRACE-I NEGATIVE [facility] CLEAR CLEAR [facility] LT. YELLOW YELLOW [facility] NONE SEEN NONE SEEN [facility] 6.5 5.0-9.0 [facility] 100 mg/dL Abnormal NEG/TRACE [facility] 0-2 #/HPF 0-2 [facility] 1.020 1.005-1.025 [facility] FEW #/LPF Abnormal NONE/RARE [facility] 0.2 EU/dL 0.2-1.0 [facility] Troponin I High Sensitivity 21.3 pg/mL 4.0-51.3 [facility] Comment on above: CUT-OFF POINTS HAVE [...] AND CLINICAL INFORMATION. 3410.0 pg/mL High <=1800.0 [facility] 21.3 pg/mL 4.0-51.3 [facility] 2.6 g/dL Low 3.4-5.0 [facility] 87 U/L 46-116 [facility] 18 U/L 14-59 [facility] 14 U/L Low 15-37 [facility] 38.4 [facility] 43.0 mg/dL High 7.0-18.0 [facility] 8.6 mg/dL 8.5-10.1 [facility] 101 mmol/L 98-107 [facility] 31.4 mmol/L 21.0-32.0 [facility] 1.12 mg/dL High 0.55-1.02 [facility] 57 Low >=60 [facility] 153 mg/dL High 74-106 [facility] 3.6 mmol/L 3.5-5.1 [facility] 141 mmol/L 136-145 [facility] 0.6 mg/dL 0.2-1.0 [facility] 6.8 g/dL 6.4-8.2 [facility] Platelet mean volume Auto (B ld) [Entitic vol]on 07-15-2024 Platelet mean volume (Bld) [Entitic vol] 11.0 fL 9.5-13.5 [facility] Platelets Auto (Bld) [#/Vol] on 07-15-2024 Platelets (Bld) [#/Vol] 177 10 3/uL 150-450 [facility] RBC Auto (Bld) [#/Vol]on RBC (Bld) [#/Vol] 3.88 10 6/uL Low 4.20-5.40 [facility] Serum or plasma albumin/glob ulin mass ratioon 07-15-2024 Albumin/Globulin [Mass ratio] 0.6 {ratio} [facility] Serum or plasma anion gap de terminationon 07-15-2024 Anion gap [Moles/Vol] 12.2 mmol/L [facility] Basophils Auto (Bld) [#/Vol] on 07-14-2024 Basophils (Bld) [#/Vol] 0.1 10 3/uL 0.0-0.1 [facility] Basophils/100 WBC Auto (Bld) on 07-14-2024 Basophils/100 WBC (Bld) 0.9 % 0.2-2.0 [facility] Eosinophils/100 WBC Auto (Bl d)on 07-14-2024 Eosinophils/100 WBC (Bld) 1.3 % 0.9-7.0 [facility] Erythrocyte distribution wid th Auto (RBC) [Ratio]on 07-14-2024 Erythrocyte distribution width (RBC) [Ratio] 13.5 % 11.0-15.0 [facility] Estimated glomerular filtrat ion rate (GFR) non- Americanon 07-14-2024 GFR/1.73 sq M.predicted among non-blacks MDRD (S/P/Bld) [Vol rate/Area] 30 mL/min/{1.73_m2} Low >=60 [facility] Hematocrit Auto (Bld) [Volum e fraction]on 07-14-2024 Hematocrit (Bld) [Volume fraction] 38.5 % 36.0-48.0 [facility] Hemoglobin [Mass/volume] in Bloodon 07-14-2024 Hemoglobin (Bld) [Mass/Vol] 12.8 g/dL 12.0-16.0 [facility] Laboratory - Chemistry and C hemistry - challengeon 07-14-2024 Calcium [Mass/Vol] 9.0 mg/dL 8.5-10.1 [facility] Chloride [Moles/Vol] 96 mmol/L Low 98-107 [facility] CO2 [Moles/Vol] 35.5 mmol/L High 21.0-32.0 [facility] Creatinine [Mass/Vol] 1.65 mg/dL High 0.55-1.02 [facility] GFR/1.73 sq M.predicted MDRD (S/P/Bld) [Vol rate/Area] 36 mL/min/{1.73_m2} Low >=60 [facility] Glucose [Mass/Vol] 458 mg/dL High 74-106 [facility] Potassium [Moles/Vol] 4.0 mmol/L 3.5-5.1 [facility] Sodium [Moles/Vol] 135 mmol/L Low 136-145 [facility] Urea nitrogen [Mass/Vol] 52.0 mg/dL High 7.0-18.0 [facility] Urea nitrogen/Creatinine [Mass ratio] 31.5 mg/mg [facility] Laboratory - Hematology and Cell countson 07-14-2024 Immature granulocytes/100 WBC (Bld) 0.1 % 0.0-0.5 [facility] Leukocytes [#/volume] correc gali for nucleated erythrocytes in Blood by Automated counon 07-14-2024 WBC corrected for nucl RBC Auto (Bld) [#/Vol] 8.2 10 3/uL 4.0-11.0 [facility] Lymphocytes Auto (Bld) [#/Vo l]on 07-14-2024 Lymphocytes (Bld) [#/Vol] 1.1 10 3/uL Low 1.2-3.8 [facility] Lymphocytes/100 WBC Auto (Bl d)on 07-14-2024 Lymphocytes/100 WBC (Bld) 13.7 % Low 20.5-60.0 [facility] MCH Auto (RBC) [Entitic mass ]on 07-14-2024 MCH (RBC) [Entitic mass] 30.0 pg 26.7-34.0 [facility] MCHC Auto (RBC) [Mass/Vol]on 07-14-2024 MCHC (RBC) [Mass/Vol] 33.2 g/dL 29.9-35.2 [facility] MCV Auto (RBC) [Entitic vol] on 07-14-2024 MCV (RBC) [Entitic vol] 90.2 fL 81.0-99.0 [facility] Monocytes Auto (Bld) [#/Vol] on 07-14-2024 Monocytes (Bld) [#/Vol] 0.5 10 3/uL 0.3-0.8 [facility] Monocytes/100 WBC Auto (Bld) on 07-14-2024 Monocytes/100 WBC (Bld) 6.6 % 1.7-12.0 [facility] Neutrophils Auto (Bld) [#/Vo l]on 07-14-2024 Neutrophils (Bld) [#/Vol] 6.3 10 3/uL 1.4-6.5 [facility] Neutrophils/100 WBC Auto (Bl d)on 07-14-2024 Neutrophils/100 WBC (Bld) 77.4 % High 43.0-75.0 [facility] No Panel Informationon 07-14 Eosinophils # (Auto) 0.1 10 3/uL 0.0-0.7 [facility] Immature Granulocyte # (Auto) 0.01 10 3/uL 0.00-0.03 [facility] Troponin I High Sensitivity 17.9 pg/mL 4.0-51.3 [facility] Comment on above: CUT-OFF POINTS HAVE [...] DIAGNOSTIC AND CLINICAL INFORMATION. 17.9 pg/mL 4.0-51.3 [facility] 31.5 [facility] 0.1 10 3/uL 0.0-0.7 [facility] 52.0 mg/dL High 7.0-18.0 [facility] 9.0 mg/dL 8.5-10.1 [facility] 96 mmol/L Low 98-107 [facility] 35.5 mmol/L High 21.0-32.0 [facility] 0.01 10 3/uL 0.00-0.03 [facility] 1.65 mg/dL High 0.55-1.02 [facility] 0.1 % 0.0-0.5 [facility] 36 Low >=60 [facility] 458 mg/dL High 74-106 [facility] 4.0 mmol/L 3.5-5.1 [facility] 135 mmol/L Low 136-145 [facility] Platelet mean volume Auto (B ld) [Entitic vol]on 07-14-2024 Platelet mean volume (Bld) [Entitic vol] 11.0 fL 9.5-13.5 [facility] Platelets Auto (Bld) [#/Vol] on 07-14-2024 Platelets (Bld) [#/Vol] 182 10 3/uL 150-450 [facility] RBC Auto (Bld) [#/Vol]on RBC (Bld) [#/Vol] 4.27 10 6/uL 4.20-5.40 [facility] Serum or plasma anion gap de terminationon 07-14-2024 Anion gap [Moles/Vol] 7.5 mmol/L [facility] 36on 07-01-2024 36 Regarding lab [...] for patient to return my call. Normal [facility] Estimated glomerular filtrat ion rate (GFR) non- Americanon 06-24-2024 GFR/1.73 sq M.predicted among non-blacks MDRD (S/P/Bld) [Vol rate/Area] 38 mL/min/{1.73_m2} Low >=60 [facility] Laboratory - Chemistry and C hemistry - challengeon 06-24-2024 Calcium [Mass/Vol] 8.4 mg/dL Low 8.5-10.1 [facility] Chloride [Moles/Vol] 100 mmol/L 98-107 [facility] CO2 [Moles/Vol] 31.1 mmol/L 21.0-32.0 [facility] Creatinine [Mass/Vol] 1.34 mg/dL High 0.55-1.02 [facility] GFR/1.73 sq M.predicted MDRD (S/P/Bld) [Vol rate/Area] 46 mL/min/{1.73_m2} Low >=60 [facility] Glucose [Mass/Vol] 222 mg/dL High 74-106 [facility] Potassium [Moles/Vol] 3.6 mmol/L 3.5-5.1 [facility] Sodium [Moles/Vol] 138 mmol/L 136-145 [facility] Urea nitrogen [Mass/Vol] 32.0 mg/dL High 7.0-18.0 [facility] Urea nitrogen/Creatinine [Mass ratio] 23.9 mg/mg [facility] No Panel Informationon 06-24 23.9 [facility] 32.0 mg/dL High 7.0-18.0 [facility] 8.4 mg/dL Low 8.5-10.1 [facility] 100 mmol/L 98-107 [facility] 31.1 mmol/L 21.0-32.0 [facility] 1.34 mg/dL High 0.55-1.02 [facility] 46 Low >=60 [facility] 222 mg/dL High 74-106 [facility] 3.6 mmol/L 3.5-5.1 [facility] 138 mmol/L 136-145 [facility] Serum or plasma anion gap de terminationon 06-24-2024 Anion gap [Moles/Vol] 10.5 mmol/L [facility] Office Visiton 06-18-2024 Follow-up visit [id number] Joe Call 1945 F Date Provider Department Center 06/18/2024 RICA DEAN LOVE Bruno Family History Problem Relation Age of Onset Coronary artery disease Other Diabetes Other Polycystic kidney disease Other Family Status - Relation Status Age at Other Level of Service:77968 DC OFFICE/OUTPATIENT ESTABLISHED MOD MDM 30 MIN Normal [facility] Basophils Auto (Bld) [#/Vol] on 06-10-2024 Basophils (Bld) [#/Vol] 0.1 10 3/uL 0.0-0.1 [facility] Basophils/100 WBC Auto (Bld) on 06-10-2024 Basophils/100 WBC (Bld) 1.0 % 0.2-2.0 [facility] Eosinophils/100 WBC Auto (Bl d)on 06-10-2024 Eosinophils/100 WBC (Bld) 1.3 % 0.9-7.0 [facility] Erythrocyte distribution wid th Auto (RBC) [Ratio]on 06-10-2024 Erythrocyte distribution width (RBC) [Ratio] 14.6 % 11.0-15.0 [facility] Estimated glomerular filtrat ion rate (GFR) non- Americanon 06-10-2024 GFR/1.73 sq M.predicted among non-blacks MDRD (S/P/Bld) [Vol rate/Area] 54 mL/min/{1.73_m2} Low >=60 [facility] Globulin Calc (S) [Mass/Vol] on 06-10-2024 Globulin (S) [Mass/Vol] 4.5 g/dL [facility] Hematocrit Auto (Bld) [Volum e fraction]on 06-10-2024 Hematocrit (Bld) [Volume fraction] 36.8 % 36.0-48.0 [facility] Hemoglobin [Mass/volume] in Bloodon 06-10-2024 Hemoglobin (Bld) [Mass/Vol] 12.1 g/dL 12.0-16.0 [facility] Laboratory - Chemistry and C hemistry - challengeon 06-10-2024 Albumin [Mass/Vol] 2.4 g/dL Low 3.4-5.0 [facility] ALP [Catalytic activity/Vol] 94 U/L 46-116 [facility] ALT [Catalytic activity/Vol] 13 U/L Low 14-59 [facility] AST [Catalytic activity/Vol] 13 U/L Low 15-37 [facility] Bilirubin [Mass/Vol] 0.9 mg/dL 0.2-1.0 [facility] Calcium [Mass/Vol] 8.9 mg/dL 8.5-10.1 [facility] Chloride [Moles/Vol] 101 mmol/L 98-107 [facility] CO2 [Moles/Vol] 29.4 mmol/L 21.0-32.0 [facility] Creatinine [Mass/Vol] 1.00 mg/dL 0.55-1.02 [facility] GFR/1.73 sq M.predicted MDRD (S/P/Bld) [Vol rate/Area] mL/min/{1.73_m2} >=60 [facility] Glucose [Mass/Vol] 167 mg/dL High 74-106 [facility] Potassium [Moles/Vol] 3.4 mmol/L Low 3.5-5.1 [facility] Protein [Mass/Vol] 6.9 g/dL 6.4-8.2 [facility] Sodium [Moles/Vol] 136 mmol/L 136-145 [facility] Urea nitrogen [Mass/Vol] 24.0 mg/dL High 7.0-18.0 [facility] Urea nitrogen/Creatinine [Mass ratio] 24.0 mg/mg [facility] Laboratory - Hematology and Cell countson 06-10-2024 Immature granulocytes/100 WBC (Bld) 0.3 % 0.0-0.5 [facility] Leukocytes [#/volume] correc gali for nucleated erythrocytes in Blood by Automated counon 06-10-2024 WBC corrected for nucl RBC Auto (Bld) [#/Vol] 7.9 10 3/uL 4.0-11.0 [facility] Lymphocytes Auto (Bld) [#/Vo l]on 06-10-2024 Lymphocytes (Bld) [#/Vol] 1.3 10 3/uL 1.2-3.8 [facility] Lymphocytes/100 WBC Auto (Bl d)on 06-10-2024 Lymphocytes/100 WBC (Bld) 16.8 % Low 20.5-60.0 [facility] MCH Auto (RBC) [Entitic mass ]on 06-10-2024 MCH (RBC) [Entitic mass] 29.8 pg 26.7-34.0 [facility] MCHC Auto (RBC) [Mass/Vol]on 06-10-2024 MCHC (RBC) [Mass/Vol] 32.9 g/dL 29.9-35.2 [facility] MCV Auto (RBC) [Entitic vol] on 06-10-2024 MCV (RBC) [Entitic vol] 90.6 fL 81.0-99.0 [facility] Monocytes Auto (Bld) [#/Vol] on 06-10-2024 Monocytes (Bld) [#/Vol] 0.8 10 3/uL 0.3-0.8 [facility] Monocytes/100 WBC Auto (Bld) on 06-10-2024 Monocytes/100 WBC (Bld) 9.8 % 1.7-12.0 [facility] Neutrophils Auto (Bld) [#/Vo l]on 06-10-2024 Neutrophils (Bld) [#/Vol] 5.6 10 3/uL 1.4-6.5 [facility] Neutrophils/100 WBC Auto (Bl d)on 06-10-2024 Neutrophils/100 WBC (Bld) 70.8 % 43.0-75.0 [facility] No Panel Informationon 06-10 Eosinophils # (Auto) 0.1 10 3/uL 0.0-0.7 [facility] Immature Granulocyte # (Auto) 0.02 10 3/uL 0.00-0.03 [facility] 2.4 g/dL Low 3.4-5.0 [facility] 0.1 10 3/uL 0.0-0.7 [facility] 94 U/L 46-116 [facility] 13 U/L Low 15-37 [facility] 24.0 [facility] 0.02 10 3/uL 0.00-0.03 [facility] 24.0 mg/dL High 7.0-18.0 [facility] 0.3 % 0.0-0.5 [facility] 8.9 mg/dL 8.5-10.1 [facility] 101 mmol/L 98-107 [facility] 29.4 mmol/L 21.0-32.0 [facility] 1.00 mg/dL 0.55-1.02 [facility] >60 >=60 [facility] 167 mg/dL High 74-106 [facility] 3.4 mmol/L Low 3.5-5.1 [facility] 136 mmol/L 136-145 [facility] 0.9 mg/dL 0.2-1.0 [facility] 6.9 g/dL 6.4-8.2 [facility] Platelet mean volume Auto (B ld) [Entitic vol]on 06-10-2024 Platelet mean volume (Bld) [Entitic vol] 11.2 fL 9.5-13.5 [facility] Platelets Auto (Bld) [#/Vol] on 06-10-2024 Platelets (Bld) [#/Vol] 189 10 3/uL 150-450 [facility] RBC Auto (Bld) [#/Vol]on RBC (Bld) [#/Vol] 4.06 10 6/uL Low 4.20-5.40 [facility] Serum or plasma albumin/glob ulin mass ratioon 06-10-2024 Albumin/Globulin [Mass ratio] 0.5 {ratio} [facility] Serum or plasma anion gap de terminationon 06-10-2024 Anion gap [Moles/Vol] 9.0 mmol/L [facility] Basophils Auto (Bld) [#/Vol] on 06-09-2024 Basophils (Bld) [#/Vol] 0.1 10 3/uL 0.0-0.1 [facility] Basophils/100 WBC Auto (Bld) on 06-09-2024 Basophils/100 WBC (Bld) 1.0 % 0.2-2.0 [facility] Eosinophils/100 WBC Auto (Bl d)on 06-09-2024 Eosinophils/100 WBC (Bld) 1.5 % 0.9-7.0 [facility] Erythrocyte distribution wid th Auto (RBC) [Ratio]on 06-09-2024 Erythrocyte distribution width (RBC) [Ratio] 14.8 % 11.0-15.0 [facility] Estimated glomerular filtrat ion rate (GFR) non- Americanon 06-09-2024 GFR/1.73 sq M.predicted among non-blacks MDRD (S/P/Bld) [Vol rate/Area] mL/min/{1.73_m2} >=60 [facility] Fibrin D-dimer [Presence] in Platelet poor plasma by Latex agglutinationon 06-09-2024 Fibrin D-dimer LA Ql (PPP) 0.39 mg/L FEU <=0.59 [facility] Comment on above: Increases in D-Dimer [...] 06-09-2024 Globulin (S) [Mass/Vol] 4.8 g/dL [facility] Hematocrit Auto (Bld) [Volum e fraction]on 06-09-2024 Hematocrit (Bld) [Volume fraction] 37.7 % 36.0-48.0 [facility] Hemoglobin [Mass/volume] in Bloodon 06-09-2024 Hemoglobin (Bld) [Mass/Vol] 12.5 g/dL 12.0-16.0 [facility] Laboratory - Chemistry and C hemistry - challengeon 06-09-2024 Albumin [Mass/Vol] 2.5 g/dL Low 3.4-5.0 [facility] ALP [Catalytic activity/Vol] 86 U/L 46-116 [facility] ALT [Catalytic activity/Vol] 18 U/L 14-59 [facility] AST [Catalytic activity/Vol] 34 U/L 15-37 [facility] Bilirubin [Mass/Vol] 0.8 mg/dL 0.2-1.0 [facility] Calcium [Mass/Vol] 8.6 mg/dL 8.5-10.1 [facility] Chloride [Moles/Vol] 103 mmol/L 98-107 [facility] CO2 [Moles/Vol] 27.1 mmol/L 21.0-32.0 [facility] Creatinine [Mass/Vol] 0.88 mg/dL 0.55-1.02 [facility] GFR/1.73 sq M.predicted MDRD (S/P/Bld) [Vol rate/Area] mL/min/{1.73_m2} >=60 [facility] Glucose [Mass/Vol] 142 mg/dL High 74-106 [facility] Lipase [Catalytic activity/Vol] 45.0 U/L 16.0-77.0 [facility] Natriuretic peptide B (Bld) [Mass/Vol] 3488.0 pg/mL High <=1800.0 [facility] Comment on above: RESULTS CALLED TO MAIDA MCGOWAN RN @BY Alla Kevin [phone] Potassium [Moles/Vol] 5.0 mmol/L 3.5-5.1 [facility] Protein [Mass/Vol] 7.3 g/dL 6.4-8.2 [facility] Sodium [Moles/Vol] 135 mmol/L Low 136-145 [facility] Urea nitrogen [Mass/Vol] 28.0 mg/dL High 7.0-18.0 [facility] Urea nitrogen/Creatinine [Mass ratio] 31.8 mg/mg [facility] Laboratory - Hematology and Cell countson 06-09-2024 Immature granulocytes/100 WBC (Bld) 0.3 % 0.0-0.5 [facility] Laboratory - Microbiology an d Antimicrobial susceptibilityon 06-09-2024 SARS-CoV-2 (COVID-19) RNA FERN+probe Ql (Unsp spec) Negative NEGATIVE [facility] Comment on above: This test has [...] Auto (Bld) [#/Vol] 8.9 10 3/uL 4.0-11.0 [facility] Lymphocytes Auto (Bld) [#/Vo l]on 06-09-2024 Lymphocytes (Bld) [#/Vol] 1.3 10 3/uL 1.2-3.8 [facility] Lymphocytes/100 WBC Auto (Bl d)on 06-09-2024 Lymphocytes/100 WBC (Bld) 15.1 % Low 20.5-60.0 [facility] MCH Auto (RBC) [Entitic mass ]on 06-09-2024 MCH (RBC) [Entitic mass] 30.3 pg 26.7-34.0 [facility] MCHC Auto (RBC) [Mass/Vol]on 06-09-2024 MCHC (RBC) [Mass/Vol] 33.2 g/dL 29.9-35.2 [facility] MCV Auto (RBC) [Entitic vol] on 06-09-2024 MCV (RBC) [Entitic vol] 91.5 fL 81.0-99.0 [facility] Monocytes Auto (Bld) [#/Vol] on 06-09-2024 Monocytes (Bld) [#/Vol] 0.7 10 3/uL 0.3-0.8 [facility] Monocytes/100 WBC Auto (Bld) on 06-09-2024 Monocytes/100 WBC (Bld) 7.9 % 1.7-12.0 [facility] Neutrophils Auto (Bld) [#/Vo l]on 06-09-2024 Neutrophils (Bld) [#/Vol] 6.6 10 3/uL High 1.4-6.5 [facility] Neutrophils/100 WBC Auto (Bl d)on 06-09-2024 Neutrophils/100 WBC (Bld) 74.2 % 43.0-75.0 [facility] No Panel Informationon 06-09 Negative NEGATIVE [facility] Eosinophils # (Auto) 0.1 10 3/uL 0.0-0.7 [facility] Immature Granulocyte # (Auto) 0.03 10 3/uL 0.00-0.03 [facility] Troponin I High Sensitivity 17.0 pg/mL 4.0-51.3 [facility] Comment on above: CUT-OFF POINTS HAVE [...] AND CLINICAL INFORMATION. 3488.0 pg/mL High <=1800.0 [facility] 45.0 U/L 16.0-77.0 [facility] 17.0 pg/mL 4.0-51.3 [facility] 2.5 g/dL Low 3.4-5.0 [facility] 0.1 10 3/uL 0.0-0.7 [facility] 86 U/L 46-116 [facility] 18 U/L 14-59 [facility] 34 U/L 15-37 [facility] 31.8 [facility] 0.03 10 3/uL 0.00-0.03 [facility] 28.0 mg/dL High 7.0-18.0 [facility] 0.3 % 0.0-0.5 [facility] 8.6 mg/dL 8.5-10.1 [facility] 103 mmol/L 98-107 [facility] 27.1 mmol/L 21.0-32.0 [facility] 0.88 mg/dL 0.55-1.02 [facility] >60 >=60 [facility] 142 mg/dL High 74-106 [facility] 5.0 mmol/L 3.5-5.1 [facility] 135 mmol/L Low 136-145 [facility] 0.8 mg/dL 0.2-1.0 [facility] 7.3 g/dL 6.4-8.2 [facility] Platelet mean volume Auto (B ld) [Entitic vol]on 06-09-2024 Platelet mean volume (Bld) [Entitic vol] 12.4 fL 9.5-13.5 [facility] Platelets Auto (Bld) [#/Vol] on 06-09-2024 Platelets (Bld) [#/Vol] 205 10 3/uL 150-450 [facility] RBC Auto (Bld) [#/Vol]on RBC (Bld) [#/Vol] 4.12 10 6/uL Low 4.20-5.40 [facility] Serum or plasma albumin/glob ulin mass ratioon 06-09-2024 Albumin/Globulin [Mass ratio] 0.5 {ratio} [facility] Serum or plasma anion gap de terminationon 06-09-2024 Anion gap [Moles/Vol] 9.9 mmol/L [facility] Basophils Auto (Bld) [#/Vol] on 06-01-2024 Basophils (Bld) [#/Vol] 0.1 10 3/uL 0.0-0.1 [facility] Basophils/100 WBC Auto (Bld) on 06-01-2024 Basophils/100 WBC (Bld) 0.9 % 0.2-2.0 [facility] Eosinophils/100 WBC Auto (Bl d)on 06-01-2024 Eosinophils/100 WBC (Bld) 1.2 % 0.9-7.0 [facility] Erythrocyte distribution wid th Auto (RBC) [Ratio]on 06-01-2024 Erythrocyte distribution width (RBC) [Ratio] 14.1 % 11.0-15.0 [facility] Estimated glomerular filtrat ion rate (GFR) non- Americanon 06-01-2024 GFR/1.73 sq M.predicted among non-blacks MDRD (S/P/Bld) [Vol rate/Area] 47 mL/min/{1.73_m2} Low >=60 [facility] Globulin Calc (S) [Mass/Vol] on 06-01-2024 Globulin (S) [Mass/Vol] 4.4 g/dL [facility] Hematocrit Auto (Bld) [Volum e fraction]on 06-01-2024 Hematocrit (Bld) [Volume fraction] 37.6 % 36.0-48.0 [facility] Hemoglobin [Mass/volume] in Bloodon 06-01-2024 Hemoglobin (Bld) [Mass/Vol] 12.5 g/dL 12.0-16.0 [facility] Laboratory - Chemistry and C hemistry - challengeon 06-01-2024 Albumin [Mass/Vol] 2.7 g/dL Low 3.4-5.0 [facility] ALP [Catalytic activity/Vol] 87 U/L 46-116 [facility] ALT [Catalytic activity/Vol] 18 U/L 14-59 [facility] AST [Catalytic activity/Vol] 16 U/L 15-37 [facility] Bilirubin [Mass/Vol] 0.5 mg/dL 0.2-1.0 [facility] Calcium [Mass/Vol] 8.7 mg/dL 8.5-10.1 [facility] Chloride [Moles/Vol] 101 mmol/L 98-107 [facility] CO2 [Moles/Vol] 28.9 mmol/L 21.0-32.0 [facility] Creatinine [Mass/Vol] 1.12 mg/dL High 0.55-1.02 [facility] GFR/1.73 sq M.predicted MDRD (S/P/Bld) [Vol rate/Area] 57 mL/min/{1.73_m2} Low >=60 [facility] Glucose [Mass/Vol] 232 mg/dL High 74-106 [facility] Potassium [Moles/Vol] 4.1 mmol/L 3.5-5.1 [facility] Protein [Mass/Vol] 7.1 g/dL 6.4-8.2 [facility] Sodium [Moles/Vol] 137 mmol/L 136-145 [facility] Urea nitrogen [Mass/Vol] 23.0 mg/dL High 7.0-18.0 [facility] Urea nitrogen/Creatinine [Mass ratio] 20.5 mg/mg [facility] Laboratory - Hematology and Cell countson 06-01-2024 Immature granulocytes/100 WBC (Bld) 0.2 % 0.0-0.5 [facility] Leukocytes [#/volume] correc gali for nucleated erythrocytes in Blood by Automated counon 06-01-2024 WBC corrected for nucl RBC Auto (Bld) [#/Vol] 9.0 10 3/uL 4.0-11.0 [facility] Lymphocytes Auto (Bld) [#/Vo l]on 06-01-2024 Lymphocytes (Bld) [#/Vol] 1.4 10 3/uL 1.2-3.8 [facility] Lymphocytes/100 WBC Auto (Bl d)on 06-01-2024 Lymphocytes/100 WBC (Bld) 15.9 % Low 20.5-60.0 [facility] MCH Auto (RBC) [Entitic mass ]on 06-01-2024 MCH (RBC) [Entitic mass] 29.5 pg 26.7-34.0 [facility] MCHC Auto (RBC) [Mass/Vol]on 06-01-2024 MCHC (RBC) [Mass/Vol] 33.2 g/dL 29.9-35.2 [facility] MCV Auto (RBC) [Entitic vol] on 06-01-2024 MCV (RBC) [Entitic vol] 88.7 fL 81.0-99.0 [facility] Monocytes Auto (Bld) [#/Vol] on 06-01-2024 Monocytes (Bld) [#/Vol] 0.8 10 3/uL 0.3-0.8 [facility] Monocytes/100 WBC Auto (Bld) on 06-01-2024 Monocytes/100 WBC (Bld) 8.5 % 1.7-12.0 [facility] Neutrophils Auto (Bld) [#/Vo l]on 06-01-2024 Neutrophils (Bld) [#/Vol] 6.6 10 3/uL High 1.4-6.5 [facility] Neutrophils/100 WBC Auto (Bl d)on 06-01-2024 Neutrophils/100 WBC (Bld) 73.3 % 43.0-75.0 [facility] No Panel Informationon 06-01 Eosinophils # (Auto) 0.1 10 3/uL 0.0-0.7 [facility] Immature Granulocyte # (Auto) 0.02 10 3/uL 0.00-0.03 [facility] 2.7 g/dL Low 3.4-5.0 [facility] 0.1 10 3/uL 0.0-0.7 [facility] 87 U/L 46-116 [facility] 18 U/L 14-59 [facility] 16 U/L 15-37 [facility] 20.5 [facility] 0.02 10 3/uL 0.00-0.03 [facility] 23.0 mg/dL High 7.0-18.0 [facility] 0.2 % 0.0-0.5 [facility] 8.7 mg/dL 8.5-10.1 [facility] 101 mmol/L 98-107 [facility] 28.9 mmol/L 21.0-32.0 [facility] 1.12 mg/dL High 0.55-1.02 [facility] 57 Low >=60 [facility] 232 mg/dL High 74-106 [facility] 4.1 mmol/L 3.5-5.1 [facility] 137 mmol/L 136-145 [facility] 0.5 mg/dL 0.2-1.0 [facility] 7.1 g/dL 6.4-8.2 [facility] Platelet mean volume Auto (B ld) [Entitic vol]on 06-01-2024 Platelet mean volume (Bld) [Entitic vol] 11.1 fL 9.5-13.5 [facility] Platelets Auto (Bld) [#/Vol] on 06-01-2024 Platelets (Bld) [#/Vol] 162 10 3/uL 150-450 [facility] RBC Auto (Bld) [#/Vol]on RBC (Bld) [#/Vol] 4.24 10 6/uL 4.20-5.40 [facility] Serum or plasma albumin/glob ulin mass ratioon 06-01-2024 Albumin/Globulin [Mass ratio] 0.6 {ratio} [facility] Serum or plasma anion gap de terminationon 06-01-2024 Anion gap [Moles/Vol] 11.2 mmol/L [facility] Basophils Auto (Bld) [#/Vol] on 05-26-2024 Basophils (Bld) [#/Vol] 0.1 10 3/uL 0.0-0.1 [facility] Basophils/100 WBC Auto (Bld) on 05-26-2024 Basophils/100 WBC (Bld) 1.1 % 0.2-2.0 [facility] Eosinophils/100 WBC Auto (Bl d)on 05-26-2024 Eosinophils/100 WBC (Bld) 2.1 % 0.9-7.0 [facility] Erythrocyte distribution wid th Auto (RBC) [Ratio]on 05-26-2024 Erythrocyte distribution width (RBC) [Ratio] 14.0 % 11.0-15.0 [facility] Estimated glomerular filtrat ion rate (GFR) non- Americanon 05-26-2024 GFR/1.73 sq M.predicted among non-blacks MDRD (S/P/Bld) [Vol rate/Area] 40 mL/min/{1.73_m2} Low >=60 [facility] Globulin Calc (S) [Mass/Vol] on 05-26-2024 Globulin (S) [Mass/Vol] 4.4 g/dL [facility] Hematocrit Auto (Bld) [Volum e fraction]on 05-26-2024 Hematocrit (Bld) [Volume fraction] 35.9 % Low 36.0-48.0 [facility] Hemoglobin [Mass/volume] in Bloodon 05-26-2024 Hemoglobin (Bld) [Mass/Vol] 12.0 g/dL 12.0-16.0 [facility] Laboratory - Chemistry and C hemistry - challengeon 05-26-2024 Albumin [Mass/Vol] 2.7 g/dL Low 3.4-5.0 [facility] ALP [Catalytic activity/Vol] 88 U/L 46-116 [facility] ALT [Catalytic activity/Vol] 20 U/L 14-59 [facility] AST [Catalytic activity/Vol] 12 U/L Low 15-37 [facility] Bilirubin [Mass/Vol] 0.5 mg/dL 0.2-1.0 [facility] Calcium [Mass/Vol] 8.9 mg/dL 8.5-10.1 [facility] Chloride [Moles/Vol] 104 mmol/L 98-107 [facility] CO2 [Moles/Vol] 26.7 mmol/L 21.0-32.0 [facility] Creatinine [Mass/Vol] 1.29 mg/dL High 0.55-1.02 [facility] Free T4 [Mass/Vol] 1.19 ng/dL 0.76-1.46 [facility] GFR/1.73 sq M.predicted MDRD (S/P/Bld) [Vol rate/Area] 49 mL/min/{1.73_m2} Low >=60 [facility] Glucose [Mass/Vol] 233 mg/dL High 74-106 [facility] Natriuretic peptide B (Bld) [Mass/Vol] 2687.0 pg/mL High <=1800.0 [facility] Comment on above: RESULTS CALLED TO DR Miranda HENNING IN ER BY Mira Edwards [phone] Potassium [Moles/Vol] 4.0 mmol/L 3.5-5.1 [facility] Protein [Mass/Vol] 7.1 g/dL 6.4-8.2 [facility] Sodium [Moles/Vol] 140 mmol/L 136-145 [facility] TSH Qn 4.487 m[IU]/L High 0.358-3.740 [facility] Urea nitrogen [Mass/Vol] 33.0 mg/dL High 7.0-18.0 [facility] Urea nitrogen/Creatinine [Mass ratio] 25.6 mg/mg [facility] Laboratory - Hematology and Cell countson 05-26-2024 Immature granulocytes/100 WBC (Bld) 0.1 % 0.0-0.5 [facility] Laboratory - Microbiology an d Antimicrobial susceptibilityon 05-26-2024 S. pyogenes Ag Ql (Unsp spec) Negative [facility] SARS-CoV-2 (COVID-19) RNA FERN+probe Ql (Unsp spec) Not detected NOT DETECTE [facility] Comment on above: THIS TEST IS NOT PEREZ ROVDED BY THE FDA. It has beenauthorized for use under an Emergency Use Authorization. SARS-CoV-2 (COVID-19) RNA FERN+probe Ql (Unsp spec) See comment NOT DETECTE [facility] Comment on above: COVID AG PERFORMED-- - 06/06/24 1120 ---SARS-CoV-2 FERN previously reported as: NOT DETECTEDTHIS TEST IS NOT APPROVDED BY THE FDA. It has beenauthorized for use under an Emergency Use Authorization. SARS-CoV-2 (COVID-19) RNA FERN+probe Ql (Unsp spec) Negative NEGATIVE [facility] Comment on above: This test has not be en FDA cleared or approved, but has beenauthorized by the FDA under an Emergency Use Authorization(EUA) for use by authorized laboratories certified underCLIA that meet the requirements to perform moderate [...] Auto (Bld) [#/Vol] 7.3 10 3/uL 4.0-11.0 [facility] Lymphocytes Auto (Bld) [#/Vo l]on 05-26-2024 Lymphocytes (Bld) [#/Vol] 1.3 10 3/uL 1.2-3.8 [facility] Lymphocytes/100 WBC Auto (Bl d)on 05-26-2024 Lymphocytes/100 WBC (Bld) 18.4 % Low 20.5-60.0 [facility] MCH Auto (RBC) [Entitic mass ]on 05-26-2024 MCH (RBC) [Entitic mass] 30.4 pg 26.7-34.0 [facility] MCHC Auto (RBC) [Mass/Vol]on 05-26-2024 MCHC (RBC) [Mass/Vol] 33.4 g/dL 29.9-35.2 [facility] MCV Auto (RBC) [Entitic vol] on 05-26-2024 MCV (RBC) [Entitic vol] 90.9 fL 81.0-99.0 [facility] Monocytes Auto (Bld) [#/Vol] on 05-26-2024 Monocytes (Bld) [#/Vol] 0.7 10 3/uL 0.3-0.8 [facility] Monocytes/100 WBC Auto (Bld) on 05-26-2024 Monocytes/100 WBC (Bld) 9.5 % 1.7-12.0 [facility] Neutrophils Auto (Bld) [#/Vo l]on 05-26-2024 Neutrophils (Bld) [#/Vol] 5.0 10 3/uL 1.4-6.5 [facility] Neutrophils/100 WBC Auto (Bl d)on 05-26-2024 Neutrophils/100 WBC (Bld) 68.8 % 43.0-75.0 [facility] No Panel Informationon 05-26 See comment NOT DETECTE [facility] Negative [facility] Eosinophils # (Auto) 0.2 10 3/uL 0.0-0.7 [facility] Immature Granulocyte # (Auto) 0.01 10 3/uL 0.00-0.03 [facility] Monoscreen Negative NEGATIVE [facility] Troponin I High Sensitivity 14.9 pg/mL 4.0-51.3 [facility] Comment on above: CUT-OFF POINTS HAVE [...] DIAGNOSTIC AND CLINICAL INFORMATION. 1.19 ng/dL 0.76-1.46 [facility] 2687.0 pg/mL High <=1800.0 [facility] 14.9 pg/mL 4.0-51.3 [facility] 4.487 u[iU]/mL High 0.358-3.740 [facility] Negative NEGATIVE [facility] 2.7 g/dL Low 3.4-5.0 [facility] 0.2 10 3/uL 0.0-0.7 [facility] 88 U/L 46-116 [facility] 20 U/L 14-59 [facility] 12 U/L Low 15-37 [facility] 25.6 [facility] 0.01 10 3/uL 0.00-0.03 [facility] 33.0 mg/dL High 7.0-18.0 [facility] 0.1 % 0.0-0.5 [facility] 8.9 mg/dL 8.5-10.1 [facility] 104 mmol/L 98-107 [facility] 26.7 mmol/L 21.0-32.0 [facility] 1.29 mg/dL High 0.55-1.02 [facility] 49 Low >=60 [facility] 233 mg/dL High 74-106 [facility] 4.0 mmol/L 3.5-5.1 [facility] 140 mmol/L 136-145 [facility] 0.5 mg/dL 0.2-1.0 [facility] 7.1 g/dL 6.4-8.2 [facility] Platelet mean volume Auto (B ld) [Entitic vol]on 05-26-2024 Platelet mean volume (Bld) [Entitic vol] 10.6 fL 9.5-13.5 [facility] Platelets Auto (Bld) [#/Vol] on 05-26-2024 Platelets (Bld) [#/Vol] 215 10 3/uL 150-450 [facility] RBC Auto (Bld) [#/Vol]on RBC (Bld) [#/Vol] 3.95 10 6/uL Low 4.20-5.40 [facility] Serum or plasma albumin/glob ulin mass ratioon 05-26-2024 Albumin/Globulin [Mass ratio] 0.6 {ratio} [facility] Serum or plasma anion gap de terminationon 05-26-2024 Anion gap [Moles/Vol] 13.3 mmol/L [facility] ECG 12 lead ECGon 05-22-2024 ECG 12 lead ECG [facility] [place] [address] Electrocardiograph Report Signed Patient: Joe Call MR#: [id number] 0 : 1945 Acct:[id number] Age/Sex: 78 / F ADM Date: 05/22/24 Loc: ER Room: Type: [facility] ER Attending Dr: Ordering Provider: [...] Sinus bradycardia Confirmed by Daniele Jane DO ([id number]) on 05/22/2024 4:08:55 PM Referred By: Electronically Signed By: Daniele Jane DO Transcribed By: MUS Signed By Daniele Jane DO [id number] Normal [facility] 37on 05-20-2024 37 Have [...] pillows than normal or in recliner. Normal [facility] Estimated glomerular filtrat ion rate (GFR) non- Americanon 05-20-2024 GFR/1.73 sq M.predicted among non-blacks MDRD (S/P/Bld) [Vol rate/Area] 39 mL/min/{1.73_m2} Low >=60 [facility] Laboratory - Chemistry and C hemistry - challengeon 05-20-2024 Calcium [Mass/Vol] 8.8 mg/dL 8.5-10.1 [facility] Chloride [Moles/Vol] 103 mmol/L 98-107 [facility] CO2 [Moles/Vol] 24.3 mmol/L 21.0-32.0 [facility] Creatinine [Mass/Vol] 1.32 mg/dL High 0.55-1.02 [facility] GFR/1.73 sq M.predicted MDRD (S/P/Bld) [Vol rate/Area] 47 mL/min/{1.73_m2} Low >=60 [facility] Glucose [Mass/Vol] 243 mg/dL High 74-106 [facility] Potassium [Moles/Vol] 5.0 mmol/L 3.5-5.1 [facility] Sodium [Moles/Vol] 138 mmol/L 136-145 [facility] Urea nitrogen [Mass/Vol] 35.0 mg/dL High 7.0-18.0 [facility] Urea nitrogen/Creatinine [Mass ratio] 26.5 mg/mg [facility] No Panel Informationon 05-20 26.5 [facility] 35.0 mg/dL High 7.0-18.0 [facility] 8.8 mg/dL 8.5-10.1 [facility] 103 mmol/L 98-107 [facility] 24.3 mmol/L 21.0-32.0 [facility] 1.32 mg/dL High 0.55-1.02 [facility] 47 Low >=60 [facility] 243 mg/dL High 74-106 [facility] 5.0 mmol/L 3.5-5.1 [facility] 138 mmol/L 136-145 [facility] Office Visiton 05-20-2024 Follow-up visit [id number] Joe Call 1945 F Date Provider Department Center 05/20/2024 [facility] Family History Problem Relation Age of Onset Coronary artery disease Other Diabetes Other Polycystic kidney disease Other Family Status - Relation Status Age at Other Level of Service:13276 DC OFFICE/OUTPATIENT ESTABLISHED MOD MDM 30 MIN Normal [facility] Serum or plasma anion gap de terminationon 05-20-2024 Anion gap [Moles/Vol] 15.7 mmol/L [facility] Basophils Auto (Bld) [#/Vol] on 05-06-2024 Basophils (Bld) [#/Vol] 0.1 10 3/uL 0.0-0.1 [facility] Basophils/100 WBC Auto (Bld) on 05-06-2024 Basophils/100 WBC (Bld) 0.9 % 0.2-2.0 [facility] Eosinophils/100 WBC Auto (Bl d)on 05-06-2024 Eosinophils/100 WBC (Bld) 2.7 % 0.9-7.0 [facility] Erythrocyte distribution wid th Auto (RBC) [Ratio]on 05-06-2024 Erythrocyte distribution width (RBC) [Ratio] 13.5 % 11.0-15.0 [facility] Estimated glomerular filtrat ion rate (GFR) non- Americanon 05-06-2024 GFR/1.73 sq M.predicted among non-blacks MDRD (S/P/Bld) [Vol rate/Area] 32 mL/min/{1.73_m2} Low >=60 [facility] Globulin Calc (S) [Mass/Vol] on 05-06-2024 Globulin (S) [Mass/Vol] 4.3 g/dL [facility] Hematocrit Auto (Bld) [Volum e fraction]on 05-06-2024 Hematocrit (Bld) [Volume fraction] 34.6 % Low 36.0-48.0 [facility] Hemoglobin [Mass/volume] in Bloodon 05-06-2024 Hemoglobin (Bld) [Mass/Vol] 11.1 g/dL Low 12.0-16.0 [facility] Laboratory - Chemistry and C hemistry - challengeon 05-06-2024 Albumin [Mass/Vol] 2.5 g/dL Low 3.4-5.0 [facility] ALP [Catalytic activity/Vol] 75 U/L 46-116 [facility] ALT [Catalytic activity/Vol] 16 U/L 14-59 [facility] AST [Catalytic activity/Vol] 11 U/L Low 15-37 [facility] Bilirubin [Mass/Vol] 0.4 mg/dL 0.2-1.0 [facility] Calcium [Mass/Vol] 8.4 mg/dL Low 8.5-10.1 [facility] Chloride [Moles/Vol] 107 mmol/L 98-107 [facility] CO2 [Moles/Vol] 25.7 mmol/L 21.0-32.0 [facility] Creatinine [Mass/Vol] 1.58 mg/dL High 0.55-1.02 [facility] GFR/1.73 sq M.predicted MDRD (S/P/Bld) [Vol rate/Area] 38 mL/min/{1.73_m2} Low >=60 [facility] Glucose [Mass/Vol] 146 mg/dL High 74-106 [facility] Magnesium [Mass/Vol] 1.6 mg/dL Low 1.8-2.4 [facility] Natriuretic peptide B (Bld) [Mass/Vol] 2762.0 pg/mL High <=1800.0 [facility] Comment on above: RESULTS CALLED TO CLARITZA SELLERS RN @BY Alla Venegas at [phone] Potassium [Moles/Vol] 4.1 mmol/L 3.5-5.1 [facility] Protein [Mass/Vol] 6.8 g/dL 6.4-8.2 [facility] Sodium [Moles/Vol] 141 mmol/L 136-145 [facility] Urea nitrogen [Mass/Vol] 49.0 mg/dL High 7.0-18.0 [facility] Urea nitrogen/Creatinine [Mass ratio] 31.0 mg/mg [facility] Laboratory - Hematology and Cell countson 05-06-2024 Immature granulocytes/100 WBC (Bld) 0.1 % 0.0-0.5 [facility] Leukocytes [#/volume] correc gali for nucleated erythrocytes in Blood by Automated counon 05-06-2024 WBC corrected for nucl RBC Auto (Bld) [#/Vol] 6.7 10 3/uL 4.0-11.0 [facility] Lymphocytes Auto (Bld) [#/Vo l]on 05-06-2024 Lymphocytes (Bld) [#/Vol] 1.5 10 3/uL 1.2-3.8 [facility] Lymphocytes/100 WBC Auto (Bl d)on 05-06-2024 Lymphocytes/100 WBC (Bld) 21.8 % 20.5-60.0 [facility] MCH Auto (RBC) [Entitic mass ]on 05-06-2024 MCH (RBC) [Entitic mass] 29.0 pg 26.7-34.0 [facility] MCHC Auto (RBC) [Mass/Vol]on 05-06-2024 MCHC (RBC) [Mass/Vol] 32.1 g/dL 29.9-35.2 [facility] MCV Auto (RBC) [Entitic vol] on 05-06-2024 MCV (RBC) [Entitic vol] 90.3 fL 81.0-99.0 [facility] Monocytes Auto (Bld) [#/Vol] on 05-06-2024 Monocytes (Bld) [#/Vol] 0.7 10 3/uL 0.3-0.8 [facility] Monocytes/100 WBC Auto (Bld) on 05-06-2024 Monocytes/100 WBC (Bld) 10.6 % 1.7-12.0 [facility] Neutrophils Auto (Bld) [#/Vo l]on 05-06-2024 Neutrophils (Bld) [#/Vol] 4.3 10 3/uL 1.4-6.5 [facility] Neutrophils/100 WBC Auto (Bl d)on 05-06-2024 Neutrophils/100 WBC (Bld) 63.9 % 43.0-75.0 [facility] No Panel Informationon 05-06 Eosinophils # (Auto) 0.2 10 3/uL 0.0-0.7 [facility] Immature Granulocyte # (Auto) 0.01 10 3/uL 0.00-0.03 [facility] Troponin I High Sensitivity 13.2 pg/mL 4.0-51.3 [facility] Comment on above: CUT-OFF POINTS HAVE [...] AND CLINICAL INFORMATION. 2762.0 pg/mL High <=1800.0 [facility] 13.2 pg/mL 4.0-51.3 [facility] 1.6 mg/dL Low 1.8-2.4 [facility] 2.5 g/dL Low 3.4-5.0 [facility] 0.2 10 3/uL 0.0-0.7 [facility] 75 U/L 46-116 [facility] 16 U/L 14-59 [facility] 11 U/L Low 15-37 [facility] 31.0 [facility] 0.01 10 3/uL 0.00-0.03 [facility] 49.0 mg/dL High 7.0-18.0 [facility] 0.1 % 0.0-0.5 [facility] 8.4 mg/dL Low 8.5-10.1 [facility] 107 mmol/L 98-107 [facility] 25.7 mmol/L 21.0-32.0 [facility] 1.58 mg/dL High 0.55-1.02 [facility] 38 Low >=60 [facility] 146 mg/dL High 74-106 [facility] 4.1 mmol/L 3.5-5.1 [facility] 141 mmol/L 136-145 [facility] 0.4 mg/dL 0.2-1.0 [facility] 6.8 g/dL 6.4-8.2 [facility] Platelet mean volume Auto (B ld) [Entitic vol]on 05-06-2024 Platelet mean volume (Bld) [Entitic vol] 11.3 fL 9.5-13.5 [facility] Platelets Auto (Bld) [#/Vol] on 05-06-2024 Platelets (Bld) [#/Vol] 146 10 3/uL Low 150-450 [facility] RBC Auto (Bld) [#/Vol]on RBC (Bld) [#/Vol] 3.83 10 6/uL Low 4.20-5.40 [facility] Serum or plasma albumin/glob ulin mass ratioon 05-06-2024 Albumin/Globulin [Mass ratio] 0.6 {ratio} [facility] Serum or plasma anion gap de terminationon 05-06-2024 Anion gap [Moles/Vol] 12.4 mmol/L [facility] Basophils Auto (Bld) [#/Vol] on 05-05-2024 Basophils (Bld) [#/Vol] 0.1 10 3/uL 0.0-0.1 [facility] Basophils/100 WBC Auto (Bld) on 05-05-2024 Basophils/100 WBC (Bld) 0.9 % 0.2-2.0 [facility] Eosinophils/100 WBC Auto (Bl d)on 05-05-2024 Eosinophils/100 WBC (Bld) 1.9 % 0.9-7.0 [facility] Erythrocyte distribution wid th Auto (RBC) [Ratio]on 05-05-2024 Erythrocyte distribution width (RBC) [Ratio] 13.4 % 11.0-15.0 [facility] Estimated glomerular filtrat ion rate (GFR) non- Americanon 05-05-2024 GFR/1.73 sq M.predicted among non-blacks MDRD (S/P/Bld) [Vol rate/Area] 29 mL/min/{1.73_m2} Low >=60 [facility] Globulin Calc (S) [Mass/Vol] on 05-05-2024 Globulin (S) [Mass/Vol] 4.4 g/dL [facility] Hematocrit Auto (Bld) [Volum e fraction]on 05-05-2024 Hematocrit (Bld) [Volume fraction] 33.8 % Low 36.0-48.0 [facility] Hemoglobin [Mass/volume] in Bloodon 05-05-2024 Hemoglobin (Bld) [Mass/Vol] 11.1 g/dL Low 12.0-16.0 [facility] Laboratory - Chemistry and C hemistry - challengeon 05-05-2024 Albumin [Mass/Vol] 2.6 g/dL Low 3.4-5.0 [facility] ALP [Catalytic activity/Vol] 74 U/L 46-116 [facility] ALT [Catalytic activity/Vol] 17 U/L 14-59 [facility] AST [Catalytic activity/Vol] 12 U/L Low 15-37 [facility] Bilirubin [Mass/Vol] 0.4 mg/dL 0.2-1.0 [facility] Calcium [Mass/Vol] 6.1 mg/dL Low 8.5-10.1 [facility] Chloride [Moles/Vol] 105 mmol/L 98-107 [facility] CO2 [Moles/Vol] 24.1 mmol/L 21.0-32.0 [facility] Creatinine [Mass/Vol] 1.71 mg/dL High 0.55-1.02 [facility] GFR/1.73 sq M.predicted MDRD (S/P/Bld) [Vol rate/Area] 35 mL/min/{1.73_m2} Low >=60 [facility] Glucose [Mass/Vol] 202 mg/dL High 74-106 [facility] Magnesium [Mass/Vol] 1.5 mg/dL Low 1.8-2.4 [facility] Natriuretic peptide B (Bld) [Mass/Vol] 2725.0 pg/mL High <=1800.0 [facility] Comment on above: RESULTS CALLED TO Frances Bryant (N)@BY Franchesca HuynhNARCOTICS AND VICE DETECTIVE at 0547 Potassium [Moles/Vol] 5.9 mmol/L High 3.5-5.1 [facility] Protein [Mass/Vol] 7.0 g/dL 6.4-8.2 [facility] Sodium [Moles/Vol] 139 mmol/L 136-145 [facility] Urea nitrogen [Mass/Vol] 69.0 mg/dL High 7.0-18.0 [facility] Urea nitrogen/Creatinine [Mass ratio] 40.4 mg/mg [facility] Laboratory - Hematology and Cell countson 05-05-2024 Immature granulocytes/100 WBC (Bld) 0.3 % 0.0-0.5 [facility] Leukocytes [#/volume] correc gali for nucleated erythrocytes in Blood by Automated counon 05-05-2024 WBC corrected for nucl RBC Auto (Bld) [#/Vol] 6.9 10 3/uL 4.0-11.0 [facility] Lymphocytes Auto (Bld) [#/Vo l]on 05-05-2024 Lymphocytes (Bld) [#/Vol] 1.2 10 3/uL 1.2-3.8 [facility] Lymphocytes/100 WBC Auto (Bl d)on 05-05-2024 Lymphocytes/100 WBC (Bld) 18.0 % Low 20.5-60.0 [facility] MCH Auto (RBC) [Entitic mass ]on 05-05-2024 MCH (RBC) [Entitic mass] 29.3 pg 26.7-34.0 [facility] MCHC Auto (RBC) [Mass/Vol]on 05-05-2024 MCHC (RBC) [Mass/Vol] 32.8 g/dL 29.9-35.2 [facility] MCV Auto (RBC) [Entitic vol] on 05-05-2024 MCV (RBC) [Entitic vol] 89.2 fL 81.0-99.0 [facility] Monocytes Auto (Bld) [#/Vol] on 05-05-2024 Monocytes (Bld) [#/Vol] 0.6 10 3/uL 0.3-0.8 [facility] Monocytes/100 WBC Auto (Bld) on 05-05-2024 Monocytes/100 WBC (Bld) 8.7 % 1.7-12.0 [facility] Neutrophils Auto (Bld) [#/Vo l]on 05-05-2024 Neutrophils (Bld) [#/Vol] 4.8 10 3/uL 1.4-6.5 [facility] Neutrophils/100 WBC Auto (Bl d)on 05-05-2024 Neutrophils/100 WBC (Bld) 70.2 % 43.0-75.0 [facility] No Panel Informationon 05-05 Eosinophils # (Auto) 0.1 10 3/uL 0.0-0.7 [facility] Immature Granulocyte # (Auto) 0.02 10 3/uL 0.00-0.03 [facility] Troponin I High Sensitivity 14.0 pg/mL 4.0-51.3 [facility] Comment on above: CUT-OFF POINTS HAVE [...] AND CLINICAL INFORMATION. 2725.0 pg/mL High <=1800.0 [facility] 14.0 pg/mL 4.0-51.3 [facility] 1.5 mg/dL Low 1.8-2.4 [facility] 2.6 g/dL Low 3.4-5.0 [facility] 0.1 10 3/uL 0.0-0.7 [facility] 74 U/L 46-116 [facility] 17 U/L 14-59 [facility] 12 U/L Low 15-37 [facility] 40.4 [facility] 0.02 10 3/uL 0.00-0.03 [facility] 69.0 mg/dL High 7.0-18.0 [facility] 0.3 % 0.0-0.5 [facility] 6.1 mg/dL Low 8.5-10.1 [facility] 105 mmol/L 98-107 [facility] 24.1 mmol/L 21.0-32.0 [facility] 1.71 mg/dL High 0.55-1.02 [facility] 35 Low >=60 [facility] 202 mg/dL High 74-106 [facility] 5.9 mmol/L High 3.5-5.1 [facility] 139 mmol/L 136-145 [facility] 0.4 mg/dL 0.2-1.0 [facility] 7.0 g/dL 6.4-8.2 [facility] Platelet mean volume Auto (B ld) [Entitic vol]on 05-05-2024 Platelet mean volume (Bld) [Entitic vol] 11.8 fL 9.5-13.5 [facility] Platelets Auto (Bld) [#/Vol] on 05-05-2024 Platelets (Bld) [#/Vol] 173 10 3/uL 150-450 [facility] RBC Auto (Bld) [#/Vol]on RBC (Bld) [#/Vol] 3.79 10 6/uL Low 4.20-5.40 [facility] Serum or plasma albumin/glob ulin mass ratioon 05-05-2024 Albumin/Globulin [Mass ratio] 0.6 {ratio} [facility] Serum or plasma anion gap de terminationon 05-05-2024 Anion gap [Moles/Vol] 15.8 mmol/L [facility] Basophils Auto (Bld) [#/Vol] on 05-04-2024 Basophils (Bld) [#/Vol] 0.1 10 3/uL 0.0-0.1 [facility] Basophils/100 WBC Auto (Bld) on 05-04-2024 Basophils/100 WBC (Bld) 0.9 % 0.2-2.0 [facility] Eosinophils/100 WBC Auto (Bl d)on 05-04-2024 Eosinophils/100 WBC (Bld) 1.7 % 0.9-7.0 [facility] Erythrocyte distribution wid th Auto (RBC) [Ratio]on 05-04-2024 Erythrocyte distribution width (RBC) [Ratio] 13.6 % 11.0-15.0 [facility] Estimated glomerular filtrat ion rate (GFR) non- Americanon 05-04-2024 GFR/1.73 sq M.predicted among non-blacks MDRD (S/P/Bld) [Vol rate/Area] 21 mL/min/{1.73_m2} Low >=60 [facility] Globulin Calc (S) [Mass/Vol] on 05-04-2024 Globulin (S) [Mass/Vol] 4.9 g/dL [facility] Hematocrit Auto (Bld) [Volum e fraction]on 05-04-2024 Hematocrit (Bld) [Volume fraction] 37.6 % 36.0-48.0 [facility] Hemoglobin [Mass/volume] in Bloodon 05-04-2024 Hemoglobin (Bld) [Mass/Vol] 12.0 g/dL 12.0-16.0 [facility] Laboratory - Chemistry and C hemistry - challengeon 05-04-2024 Bilirubin Ql (U) Negative NEGATIVE [facility] Glucose (U) [Mass/Vol] 250 mg/dL Abnormal NEGATIVE [facility] Ketones Ql (U) Negative NEGATIVE [facility] pH (U) 6.0 [pH] 5.0-9.0 [facility] Specific gravity (U) [Rel density] 1.015 1.005-1.025 [facility] Urobilinogen Qn (U) 0.2 {Meka'U}/dL 0.2-1.0 [facility] Albumin [Mass/Vol] 2.8 g/dL Low 3.4-5.0 [facility] ALP [Catalytic activity/Vol] 86 U/L 46-116 [facility] ALT [Catalytic activity/Vol] 16 U/L 14-59 [facility] Ammonia (P) [Moles/Vol] 12 umol/L 11-32 [facility] AST [Catalytic activity/Vol] 8 U/L Low 15-37 [facility] Bilirubin [Mass/Vol] 0.4 mg/dL 0.2-1.0 [facility] Calcium [Mass/Vol] 8.8 mg/dL 8.5-10.1 [facility] Chloride [Moles/Vol] 101 mmol/L 98-107 [facility] CO2 [Moles/Vol] 22.4 mmol/L 21.0-32.0 [facility] Creatinine [Mass/Vol] 2.24 mg/dL High 0.55-1.02 [facility] GFR/1.73 sq M.predicted MDRD (S/P/Bld) [Vol rate/Area] 26 mL/min/{1.73_m2} Low >=60 [facility] Glucose [Mass/Vol] 369 mg/dL High 74-106 [facility] Lactate [Moles/Vol] 1.2 mmol/L 0.4-2.0 [facility] Magnesium [Mass/Vol] 1.7 mg/dL Low 1.8-2.4 [facility] Natriuretic peptide B (Bld) [Mass/Vol] 2342.0 pg/mL High <=1800.0 [facility] Comment on above: RESULTS CALLED TO RENETTA Renteria RN @BY Andrea Long, MLTat 1126 Potassium [Moles/Vol] 5.6 mmol/L High 3.5-5.1 [facility] Protein [Mass/Vol] 7.7 g/dL 6.4-8.2 [facility] Sodium [Moles/Vol] 134 mmol/L Low 136-145 [facility] T4 [Mass/Vol] 11.80 ug/dL 4.80-13.90 [facility] TSH Qn 0.933 m[IU]/L 0.358-3.740 [facility] Urea nitrogen [Mass/Vol] 86.0 mg/dL High 7.0-18.0 [facility] Comment on above: RESULTS CALLED TO RENETTA Renteria RN @BY Andrea Long, MLTat 1126 Urea nitrogen/Creatinine [Mass ratio] 38.4 mg/mg [facility] Laboratory - Hematology and Cell countson 05-04-2024 Immature granulocytes/100 WBC (Bld) 0.3 % 0.0-0.5 [facility] Laboratory - Microbiology an d Antimicrobial susceptibilityOrdered By: Carl Morales on 05-04-2024 Bacteria identified Cx Nom (U) [facility] Laboratory - Specimen inform ationon 05-04-2024 Appearance (U) SLIGHTLY CLOUDY Abnormal CLEAR [facility] Color (U) YELLOW YELLOW [facility] Laboratory - Urinalysison Hyaline casts LM Ql (Urine sed) RARE [facility] Leukocyte esterase Test strip Ql (U) Negative NEGATIVE [facility] Mucus Ql (Urine sed) NONE SEEN NONE SEEN [facility] Nitrite Ql (U) Negative NEGATIVE [facility] Protein Ql (U) 100 mg/dL Abnormal NEG/TRACE [facility] Leukocytes [#/volume] correc gali for nucleated erythrocytes in Blood by Automated counon 05-04-2024 WBC corrected for nucl RBC Auto (Bld) [#/Vol] 6.9 10 3/uL 4.0-11.0 [facility] Lymphocytes Auto (Bld) [#/Vo l]on 05-04-2024 Lymphocytes (Bld) [#/Vol] 1.2 10 3/uL 1.2-3.8 [facility] Lymphocytes/100 WBC Auto (Bl d)on 05-04-2024 Lymphocytes/100 WBC (Bld) 17.8 % Low 20.5-60.0 [facility] MCH Auto (RBC) [Entitic mass ]on 05-04-2024 MCH (RBC) [Entitic mass] 29.3 pg 26.7-34.0 [facility] MCHC Auto (RBC) [Mass/Vol]on 05-04-2024 MCHC (RBC) [Mass/Vol] 31.9 g/dL 29.9-35.2 [facility] MCV Auto (RBC) [Entitic vol] on 05-04-2024 MCV (RBC) [Entitic vol] 91.9 fL 81.0-99.0 [facility] Monocytes Auto (Bld) [#/Vol] on 05-04-2024 Monocytes (Bld) [#/Vol] 0.7 10 3/uL 0.3-0.8 [facility] Monocytes/100 WBC Auto (Bld) on 05-04-2024 Monocytes/100 WBC (Bld) 10.4 % 1.7-12.0 [facility] Neutrophils Auto (Bld) [#/Vo l]on 05-04-2024 Neutrophils (Bld) [#/Vol] 4.8 10 3/uL 1.4-6.5 [facility] Neutrophils/100 WBC Auto (Bl d)on 05-04-2024 Neutrophils/100 WBC (Bld) 68.9 % 43.0-75.0 [facility] No Panel Informationon 05-04 Acetone Level Negative NEGATIVE [facility] Negative NEGATIVE [facility] Urine Bacteria MODERATE #/HPF Abnormal NONE SEEN [facility] Urine Culture Reflexed ALREADY ORDERED [facility] Urine Microscopic Review YES [facility] Urine Occult Blood MODERATE Abnormal NEGATIVE [facility] Urine Other Casts SEEN #/LPF Abnormal NONE SEEN [facility] Urine Other Crystals None Seen #/HPF None Seen [facility] Urine RBC 2-5 #/HPF Abnormal 0-2 [facility] Urine Squamous Epithelial Cells FEW #/LPF Abnormal NONE/RARE [facility] Urine WBC 2-5 #/HPF Abnormal NONE SEEN [facility] ALREADY ORDERED [facility] YES [facility] SEEN #/LPF Abnormal NONE SEEN [facility] Negative NEGATIVE [facility] None Seen #/HPF None Seen [facility] MODERATE Abnormal NEGATIVE [facility] MODERATE #/HPF Abnormal NONE SEEN [facility] SLIGHTLY CLOUDY Abnormal CLEAR [facility] RARE [facility] YELLOW YELLOW [facility] NONE SEEN NONE SEEN [facility] 250 mg/dL Abnormal NEGATIVE [facility] 2-5 #/HPF Abnormal NONE SEEN [facility] FEW #/LPF Abnormal NONE/RARE [facility] 6.0 5.0-9.0 [facility] 100 mg/dL Abnormal NEG/TRACE [facility] 1.015 1.005-1.025 [facility] 0.2 EU/dL 0.2-1.0 [facility] Eosinophils # (Auto) 0.1 10 3/uL 0.0-0.7 [facility] Immature Granulocyte # (Auto) 0.02 10 3/uL 0.00-0.03 [facility] Troponin I High Sensitivity 10.5 pg/mL 4.0-51.3 [facility] Comment on above: CUT-OFF POINTS HAVE [...] Partial Pressure CO2 38.5 mm[Hg] Low 40.0-52.0 [facility] Venous Blood pH 7.353 7.330-7.430 [facility] 0.933 u[iU]/mL 0.358-3.740 [facility] 11.80 ug/dL 4.80-13.90 [facility] 1.7 mg/dL Low 1.8-2.4 [facility] 2342.0 pg/mL High <=1800.0 [facility] 1.2 mmol/L 0.4-2.0 [facility] 10.5 pg/mL 4.0-51.3 [facility] 12 umol/L 11-32 [facility] 38.5 mm[Hg] Low 40.0-52.0 [facility] 7.353 7.330-7.430 [facility] 2.8 g/dL Low 3.4-5.0 [facility] 0.1 10 3/uL 0.0-0.7 [facility] 86 U/L 46-116 [facility] 16 U/L 14-59 [facility] 8 U/L Low 15-37 [facility] 38.4 [facility] 0.02 10 3/uL 0.00-0.03 [facility] 86.0 mg/dL High 7.0-18.0 [facility] 0.3 % 0.0-0.5 [facility] 8.8 mg/dL 8.5-10.1 [facility] 101 mmol/L 98-107 [facility] 22.4 mmol/L 21.0-32.0 [facility] 2.24 mg/dL High 0.55-1.02 [facility] 26 Low >=60 [facility] 369 mg/dL High 74-106 [facility] 5.6 mmol/L High 3.5-5.1 [facility] 134 mmol/L Low 136-145 [facility] 0.4 mg/dL 0.2-1.0 [facility] 7.7 g/dL 6.4-8.2 [facility] No Panel InformationOrdered By: LAMINE SINGH on 05-04-2024 Blood Culture 1 [facility] Platelet mean volume Auto (B ld) [Entitic vol]on 05-04-2024 Platelet mean volume (Bld) [Entitic vol] 11.4 fL 9.5-13.5 [facility] Platelets Auto (Bld) [#/Vol] on 05-04-2024 Platelets (Bld) [#/Vol] 160 10 3/uL 150-450 [facility] RBC Auto (Bld) [#/Vol]on RBC (Bld) [#/Vol] 4.09 10 6/uL Low 4.20-5.40 [facility] Serum or plasma albumin/glob ulin mass ratioon 05-04-2024 Albumin/Globulin [Mass ratio] 0.6 {ratio} [facility] Serum or plasma anion gap de terminationon 05-04-2024 Anion gap [Moles/Vol] 16.2 mmol/L [facility] Basophils Auto (Bld) [#/Vol] on 05-01-2024 Basophils (Bld) [#/Vol] 0.1 10 3/uL 0.0-0.1 [facility] Basophils/100 WBC Auto (Bld) on 05-01-2024 Basophils/100 WBC (Bld) 0.7 % 0.2-2.0 [facility] Eosinophils/100 WBC Auto (Bl d)on 05-01-2024 Eosinophils/100 WBC (Bld) 2.3 % 0.9-7.0 [facility] Erythrocyte distribution wid th Auto (RBC) [Ratio]on 05-01-2024 Erythrocyte distribution width (RBC) [Ratio] 13.6 % 11.0-15.0 [facility] Estimated glomerular filtrat ion rate (GFR) non- Americanon 05-01-2024 GFR/1.73 sq M.predicted among non-blacks MDRD (S/P/Bld) [Vol rate/Area] 22 mL/min/{1.73_m2} Low >=60 [facility] Globulin Calc (S) [Mass/Vol] on 05-01-2024 Globulin (S) [Mass/Vol] 4.4 g/dL [facility] Hematocrit Auto (Bld) [Volum e fraction]on 05-01-2024 Hematocrit (Bld) [Volume fraction] 37.5 % 36.0-48.0 [facility] Hemoglobin [Mass/volume] in Bloodon 05-01-2024 Hemoglobin (Bld) [Mass/Vol] 12.1 g/dL 12.0-16.0 [facility] Laboratory - Chemistry and C hemistry - challengeon 05-01-2024 Calcium [Mass/Vol] 9.2 mg/dL 8.5-10.1 [facility] Chloride [Moles/Vol] 104 mmol/L 98-107 [facility] CO2 [Moles/Vol] 23.2 mmol/L 21.0-32.0 [facility] Creatinine [Mass/Vol] 2.14 mg/dL High 0.55-1.02 [facility] GFR/1.73 sq M.predicted MDRD (S/P/Bld) [Vol rate/Area] 27 mL/min/{1.73_m2} Low >=60 [facility] Glucose [Mass/Vol] 220 mg/dL High 74-106 [facility] Potassium [Moles/Vol] 5.3 mmol/L High 3.5-5.1 [facility] Sodium [Moles/Vol] 134 mmol/L Low 136-145 [facility] Urea nitrogen [Mass/Vol] 87.0 mg/dL High 7.0-18.0 [facility] Comment on above: RESULTS CALLED TO Klaus Michaels RN @BY Sury French [id number] Urea nitrogen/Creatinine [Mass ratio] 40.7 mg/mg [facility] Albumin [Mass/Vol] 2.8 g/dL Low 3.4-5.0 [facility] ALP [Catalytic activity/Vol] 80 U/L 46-116 [facility] ALT [Catalytic activity/Vol] 16 U/L 14-59 [facility] AST [Catalytic activity/Vol] 11 U/L Low 15-37 [facility] Bilirubin [Mass/Vol] 0.4 mg/dL 0.2-1.0 [facility] Natriuretic peptide B (Bld) [Mass/Vol] 1624.0 pg/mL <=1800.0 [facility] Protein [Mass/Vol] 7.2 g/dL 6.4-8.2 [facility] Laboratory - Hematology and Cell countson 05-01-2024 Immature granulocytes/100 WBC (Bld) 0.1 % 0.0-0.5 [facility] Leukocytes [#/volume] correc gali for nucleated erythrocytes in Blood by Automated counon 05-01-2024 WBC corrected for nucl RBC Auto (Bld) [#/Vol] 7.4 10 3/uL 4.0-11.0 [facility] Lymphocytes Auto (Bld) [#/Vo l]on 05-01-2024 Lymphocytes (Bld) [#/Vol] 2.2 10 3/uL 1.2-3.8 [facility] Lymphocytes/100 WBC Auto (Bl d)on 05-01-2024 Lymphocytes/100 WBC (Bld) 29.4 % 20.5-60.0 [facility] MCH Auto (RBC) [Entitic mass ]on 05-01-2024 MCH (RBC) [Entitic mass] 29.2 pg 26.7-34.0 [facility] MCHC Auto (RBC) [Mass/Vol]on 05-01-2024 MCHC (RBC) [Mass/Vol] 32.3 g/dL 29.9-35.2 [facility] MCV Auto (RBC) [Entitic vol] on 05-01-2024 MCV (RBC) [Entitic vol] 90.4 fL 81.0-99.0 [facility] Monocytes Auto (Bld) [#/Vol] on 05-01-2024 Monocytes (Bld) [#/Vol] 0.9 10 3/uL High 0.3-0.8 [facility] Monocytes/100 WBC Auto (Bld) on 05-01-2024 Monocytes/100 WBC (Bld) 11.5 % 1.7-12.0 [facility] Neutrophils Auto (Bld) [#/Vo l]on 05-01-2024 Neutrophils (Bld) [#/Vol] 4.1 10 3/uL 1.4-6.5 [facility] Neutrophils/100 WBC Auto (Bl d)on 05-01-2024 Neutrophils/100 WBC (Bld) 56.0 % 43.0-75.0 [facility] No Panel Informationon 05-01 40.7 [facility] 87.0 mg/dL High 7.0-18.0 [facility] 9.2 mg/dL 8.5-10.1 [facility] 104 mmol/L 98-107 [facility] 23.2 mmol/L 21.0-32.0 [facility] 2.14 mg/dL High 0.55-1.02 [facility] 27 Low >=60 [facility] 220 mg/dL High 74-106 [facility] 5.3 mmol/L High 3.5-5.1 [facility] 134 mmol/L Low 136-145 [facility] Eosinophils # (Auto) 0.2 10 3/uL 0.0-0.7 [facility] Immature Granulocyte # (Auto) 0.01 10 3/uL 0.00-0.03 [facility] 1624.0 pg/mL <=1800.0 [facility] 2.8 g/dL Low 3.4-5.0 [facility] 0.2 10 3/uL 0.0-0.7 [facility] 80 U/L 46-116 [facility] 16 U/L 14-59 [facility] 11 U/L Low 15-37 [facility] 0.01 10 3/uL 0.00-0.03 [facility] 0.1 % 0.0-0.5 [facility] 0.4 mg/dL 0.2-1.0 [facility] 7.2 g/dL 6.4-8.2 [facility] Platelet mean volume Auto (B ld) [Entitic vol]on 05-01-2024 Platelet mean volume (Bld) [Entitic vol] 11.6 fL 9.5-13.5 [facility] Platelets Auto (Bld) [#/Vol] on 05-01-2024 Platelets (Bld) [#/Vol] 151 10 3/uL 150-450 [facility] RBC Auto (Bld) [#/Vol]on RBC (Bld) [#/Vol] 4.15 10 6/uL Low 4.20-5.40 [facility] Serum or plasma albumin/glob ulin mass ratioon 05-01-2024 Albumin/Globulin [Mass ratio] 0.6 {ratio} [facility] Serum or plasma anion gap de terminationon 05-01-2024 Anion gap [Moles/Vol] 12.1 mmol/L Fi [facility] Basophils Auto (Bld) [#/Vol] on 04-30-2024 Basophils (Bld) [#/Vol] 0.1 10 3/uL 0.0-0.1 [facility] Basophils/100 WBC Auto (Bld) on 04-30-2024 Basophils/100 WBC (Bld) 0.9 % 0.2-2.0 [facility] Eosinophils/100 WBC Auto (Bl d)on 04-30-2024 Eosinophils/100 WBC (Bld) 2.4 % 0.9-7.0 [facility] Erythrocyte distribution wid th Auto (RBC) [Ratio]on 04-30-2024 Erythrocyte distribution width (RBC) [Ratio] 13.5 % 11.0-15.0 [facility] Estimated glomerular filtrat ion rate (GFR) non- Americanon 04-30-2024 GFR/1.73 sq M.predicted among non-blacks MDRD (S/P/Bld) [Vol rate/Area] 15 mL/min/{1.73_m2} Low >=60 [facility] Fibrin D-dimer [Presence] in Platelet poor plasma by Latex agglutinationon 04-30-2024 Fibrin D-dimer LA Ql (PPP) 0.24 mg/L FEU <=0.59 [facility] Comment on above: Increases in D-Dimer [...] Hematocrit (Bld) [Volume fraction] 38.6 % 36.0-48.0 [facility] Hemoglobin [Mass/volume] in Bloodon 04-30-2024 Hemoglobin (Bld) [Mass/Vol] 12.5 g/dL 12.0-16.0 [facility] Laboratory - Chemistry and C hemistry - challengeon 04-30-2024 Calcium [Mass/Vol] 9.0 mg/dL 8.5-10.1 [facility] Chloride [Moles/Vol] 100 mmol/L 98-107 [facility] CO2 [Moles/Vol] 24.4 mmol/L 21.0-32.0 [facility] Creatinine [Mass/Vol] 3.02 mg/dL High 0.55-1.02 [facility] GFR/1.73 sq M.predicted MDRD (S/P/Bld) [Vol rate/Area] 18 mL/min/{1.73_m2} Low >=60 [facility] Glucose [Mass/Vol] 271 mg/dL High 74-106 [facility] Magnesium [Mass/Vol] 1.8 mg/dL 1.8-2.4 [facility] Natriuretic peptide B (Bld) [Mass/Vol] 1485.0 pg/mL <=1800.0 [facility] Potassium [Moles/Vol] 5.3 mmol/L High 3.5-5.1 [facility] Sodium [Moles/Vol] 133 mmol/L Low 136-145 [facility] Urea nitrogen [Mass/Vol] 99.0 mg/dL High 7.0-18.0 [facility] Comment on above: RESULTS CALLED TO Yoel Robin (RN)@BY Franchesca Huynh MLT at 0603 Urea nitrogen/Creatinine [Mass ratio] 32.8 mg/mg [facility] Laboratory - Hematology and Cell countson 04-30-2024 Immature granulocytes/100 WBC (Bld) 0.1 % 0.0-0.5 [facility] Leukocytes [#/volume] correc gali for nucleated erythrocytes in Blood by Automated counon 04-30-2024 WBC corrected for nucl RBC Auto (Bld) [#/Vol] 7.5 10 3/uL 4.0-11.0 [facility] Lymphocytes Auto (Bld) [#/Vo l]on 04-30-2024 Lymphocytes (Bld) [#/Vol] 2.1 10 3/uL 1.2-3.8 [facility] Lymphocytes/100 WBC Auto (Bl d)on 04-30-2024 Lymphocytes/100 WBC (Bld) 27.8 % 20.5-60.0 [facility] MCH Auto (RBC) [Entitic mass ]on 04-30-2024 MCH (RBC) [Entitic mass] 29.6 pg 26.7-34.0 [facility] MCHC Auto (RBC) [Mass/Vol]on 04-30-2024 MCHC (RBC) [Mass/Vol] 32.4 g/dL 29.9-35.2 [facility] MCV Auto (RBC) [Entitic vol] on 04-30-2024 MCV (RBC) [Entitic vol] 91.5 fL 81.0-99.0 [facility] Monocytes Auto (Bld) [#/Vol] on 04-30-2024 Monocytes (Bld) [#/Vol] 0.8 10 3/uL 0.3-0.8 [facility] Monocytes/100 WBC Auto (Bld) on 04-30-2024 Monocytes/100 WBC (Bld) 10.0 % 1.7-12.0 [facility] Neutrophils Auto (Bld) [#/Vo l]on 04-30-2024 Neutrophils (Bld) [#/Vol] 4.4 10 3/uL 1.4-6.5 [facility] Neutrophils/100 WBC Auto (Bl d)on 04-30-2024 Neutrophils/100 WBC (Bld) 58.8 % 43.0-75.0 [facility] No Panel Informationon 04-30 Troponin I High Sensitivity 12.6 pg/mL 4.0-51.3 [facility] Comment on above: CUT-OFF POINTS HAVE [...] DIAGNOSTIC AND CLINICAL INFORMATION. 1.8 mg/dL 1.8-2.4 [facility] 1485.0 pg/mL <=1800.0 [facility] 12.6 pg/mL 4.0-51.3 [facility] 32.8 [facility] 99.0 mg/dL High 7.0-18.0 [facility] 9.0 mg/dL 8.5-10.1 [facility] 100 mmol/L 98-107 [facility] 24.4 mmol/L 21.0-32.0 [facility] 3.02 mg/dL High 0.55-1.02 [facility] 18 Low >=60 [facility] 271 mg/dL High 74-106 [facility] 5.3 mmol/L High 3.5-5.1 [facility] 133 mmol/L Low 136-145 [facility] Eosinophils # (Auto) 0.2 10 3/uL 0.0-0.7 [facility] Immature Granulocyte # (Auto) 0.01 10 3/uL 0.00-0.03 [facility] 0.2 10 3/uL 0.0-0.7 [facility] 0.01 10 3/uL 0.00-0.03 [facility] 0.1 % 0.0-0.5 [facility] Platelet mean volume Auto (B ld) [Entitic vol]on 04-30-2024 Platelet mean volume (Bld) [Entitic vol] 12.2 fL 9.5-13.5 [facility] Platelets Auto (Bld) [#/Vol] on 04-30-2024 Platelets (Bld) [#/Vol] 221 10 3/uL 150-450 [facility] RBC Auto (Bld) [#/Vol]on RBC (Bld) [#/Vol] 4.22 10 6/uL 4.20-5.40 [facility] Serum or plasma anion gap de terminationon 04-30-2024 Anion gap [Moles/Vol] 13.9 mmol/L [facility] Basophils Auto (Bld) [#/Vol] on 03-28-2024 Basophils (Bld) [#/Vol] 0.1 10 3/uL 0.0-0.1 [facility] Basophils/100 WBC Auto (Bld) on 03-28-2024 Basophils/100 WBC (Bld) 0.9 % 0.2-2.0 [facility] Eosinophils/100 WBC Auto (Bl d)on 03-28-2024 Eosinophils/100 WBC (Bld) 1.7 % 0.9-7.0 [facility] Erythrocyte distribution wid th Auto (RBC) [Ratio]on 03-28-2024 Erythrocyte distribution width (RBC) [Ratio] 14.2 % 11.0-15.0 [facility] Estimated glomerular filtrat ion rate (GFR) non- Americanon 03-28-2024 GFR/1.73 sq M.predicted among non-blacks MDRD (S/P/Bld) [Vol rate/Area] 39 mL/min/{1.73_m2} Low >=60 [facility] Globulin Calc (S) [Mass/Vol] on 03-28-2024 Globulin (S) [Mass/Vol] 4.8 g/dL [facility] Hematocrit Auto (Bld) [Volum e fraction]on 03-28-2024 Hematocrit (Bld) [Volume fraction] 40.0 % 36.0-48.0 [facility] Hemoglobin [Mass/volume] in Bloodon 03-28-2024 Hemoglobin (Bld) [Mass/Vol] 12.6 g/dL 12.0-16.0 [facility] Laboratory - Chemistry and C hemistry - challengeon 03-28-2024 Albumin [Mass/Vol] 2.5 g/dL Low 3.4-5.0 [facility] ALP [Catalytic activity/Vol] 93 U/L 46-116 [facility] ALT [Catalytic activity/Vol] 9 U/L Low 14-59 [facility] AST [Catalytic activity/Vol] 10 U/L Low 15-37 [facility] Bilirubin [Mass/Vol] 0.9 mg/dL 0.2-1.0 [facility] Calcium [Mass/Vol] 8.5 mg/dL 8.5-10.1 [facility] Chloride [Moles/Vol] 96 mmol/L Low 98-107 [facility] CO2 [Moles/Vol] 27.1 mmol/L 21.0-32.0 [facility] Creatinine [Mass/Vol] 1.33 mg/dL High 0.55-1.02 [facility] GFR/1.73 sq M.predicted MDRD (S/P/Bld) [Vol rate/Area] 47 mL/min/{1.73_m2} Low >=60 [facility] Glucose [Mass/Vol] 261 mg/dL High 74-106 [facility] Magnesium [Mass/Vol] 1.8 mg/dL 1.8-2.4 [facility] Natriuretic peptide B (Bld) [Mass/Vol] 3338.0 pg/mL High <=1800.0 [facility] Comment on above: RESULTS CALLED TO Claritza Sellers (RN)@BY Franchesca Huynh MLT at 0554 Potassium [Moles/Vol] 3.8 mmol/L 3.5-5.1 [facility] Protein [Mass/Vol] 7.3 g/dL 6.4-8.2 [facility] Sodium [Moles/Vol] 133 mmol/L Low 136-145 [facility] Urea nitrogen [Mass/Vol] 36.0 mg/dL High 7.0-18.0 [facility] Urea nitrogen/Creatinine [Mass ratio] 27.1 mg/mg [facility] Laboratory - Hematology and Cell countson 03-28-2024 Immature granulocytes/100 WBC (Bld) 0.4 % 0.0-0.5 [facility] Leukocytes [#/volume] correc gali for nucleated erythrocytes in Blood by Automated counon 03-28-2024 WBC corrected for nucl RBC Auto (Bld) [#/Vol] 8.4 10 3/uL 4.0-11.0 [facility] Lymphocytes Auto (Bld) [#/Vo l]on 03-28-2024 Lymphocytes (Bld) [#/Vol] 1.8 10 3/uL 1.2-3.8 [facility] Lymphocytes/100 WBC Auto (Bl d)on 03-28-2024 Lymphocytes/100 WBC (Bld) 21.4 % 20.5-60.0 [facility] MCH Auto (RBC) [Entitic mass ]on 03-28-2024 MCH (RBC) [Entitic mass] 29.0 pg 26.7-34.0 [facility] MCHC Auto (RBC) [Mass/Vol]on 03-28-2024 MCHC (RBC) [Mass/Vol] 31.5 g/dL 29.9-35.2 [facility] MCV Auto (RBC) [Entitic vol] on 03-28-2024 MCV (RBC) [Entitic vol] 92.0 fL 81.0-99.0 [facility] Monocytes Auto (Bld) [#/Vol] on 03-28-2024 Monocytes (Bld) [#/Vol] 0.8 10 3/uL 0.3-0.8 [facility] Monocytes/100 WBC Auto (Bld) on 03-28-2024 Monocytes/100 WBC (Bld) 9.7 % 1.7-12.0 [facility] Neutrophils Auto (Bld) [#/Vo l]on 03-28-2024 Neutrophils (Bld) [#/Vol] 5.6 10 3/uL 1.4-6.5 [facility] Neutrophils/100 WBC Auto (Bl d)on 03-28-2024 Neutrophils/100 WBC (Bld) 65.9 % 43.0-75.0 [facility] No Panel Informationon 03-28 Eosinophils # (Auto) 0.1 10 3/uL 0.0-0.7 [facility] Immature Granulocyte # (Auto) 0.03 10 3/uL 0.00-0.03 [facility] 3338.0 pg/mL High <=1800.0 [facility] 1.8 mg/dL 1.8-2.4 [facility] 2.5 g/dL Low 3.4-5.0 [facility] 0.1 10 3/uL 0.0-0.7 [facility] 93 U/L 46-116 [facility] 9 U/L Low 14-59 [facility] 10 U/L Low 15-37 [facility] 27.1 [facility] 0.03 10 3/uL 0.00-0.03 [facility] 36.0 mg/dL High 7.0-18.0 [facility] 0.4 % 0.0-0.5 [facility] 8.5 mg/dL 8.5-10.1 [facility] 96 mmol/L Low 98-107 [facility] 27.1 mmol/L 21.0-32.0 [facility] 1.33 mg/dL High 0.55-1.02 [facility] 47 Low >=60 [facility] 261 mg/dL High 74-106 [facility] 3.8 mmol/L 3.5-5.1 [facility] 133 mmol/L Low 136-145 [facility] 0.9 mg/dL 0.2-1.0 [facility] 7.3 g/dL 6.4-8.2 [facility] Platelet mean volume Auto (B ld) [Entitic vol]on 03-28-2024 Platelet mean volume (Bld) [Entitic vol] 10.5 fL 9.5-13.5 [facility] Platelets Auto (Bld) [#/Vol] on 03-28-2024 Platelets (Bld) [#/Vol] 197 10 3/uL 150-450 [facility] RBC Auto (Bld) [#/Vol]on RBC (Bld) [#/Vol] 4.35 10 6/uL 4.20-5.40 [facility] Serum or plasma albumin/glob ulin mass ratioon 03-28-2024 Albumin/Globulin [Mass ratio] 0.5 {ratio} [facility] Serum or plasma anion gap de terminationon 03-28-2024 Anion gap [Moles/Vol] 13.7 mmol/L [facility] Basophils Auto (Bld) [#/Vol] on 03-27-2024 Basophils (Bld) [#/Vol] 0.1 10 3/uL 0.0-0.1 [facility] Basophils/100 WBC Auto (Bld) on 03-27-2024 Basophils/100 WBC (Bld) 0.8 % 0.2-2.0 [facility] Eosinophils/100 WBC Auto (Bl d)on 03-27-2024 Eosinophils/100 WBC (Bld) 1.1 % 0.9-7.0 [facility] Erythrocyte distribution wid th Auto (RBC) [Ratio]on 03-27-2024 Erythrocyte distribution width (RBC) [Ratio] 14.2 % 11.0-15.0 [facility] Estimated glomerular filtrat ion rate (GFR) non- Americanon 03-27-2024 GFR/1.73 sq M.predicted among non-blacks MDRD (S/P/Bld) [Vol rate/Area] 44 mL/min/{1.73_m2} Low >=60 [facility] Globulin Calc (S) [Mass/Vol] on 03-27-2024 Globulin (S) [Mass/Vol] 4.6 g/dL [facility] Glucose mean value [Mass/vol ume] in Blood Estimated from glycated hemoglobinon 03-27-2024 Average glucose Estimated from glycated hemoglobin (Bld) [Mass/Vol] 275 mg/dL [facility] Hematocrit Auto (Bld) [Volum e fraction]on 03-27-2024 Hematocrit (Bld) [Volume fraction] 37.4 % 36.0-48.0 [facility] Hemoglobin [Mass/volume] in Bloodon 03-27-2024 Hemoglobin (Bld) [Mass/Vol] 12.1 g/dL 12.0-16.0 [facility] Laboratory - Chemistry and C hemistry - challengeon 03-27-2024 Albumin [Mass/Vol] 2.6 g/dL Low 3.4-5.0 [facility] ALP [Catalytic activity/Vol] 89 U/L 46-116 [facility] ALT [Catalytic activity/Vol] 12 U/L Low 14-59 [facility] AST [Catalytic activity/Vol] 9 U/L Low 15-37 [facility] Bilirubin [Mass/Vol] 0.9 mg/dL 0.2-1.0 [facility] Calcium [Mass/Vol] 9.1 mg/dL 8.5-10.1 [facility] Chloride [Moles/Vol] 99 mmol/L 98-107 [facility] CO2 [Moles/Vol] 28.8 mmol/L 21.0-32.0 [facility] Creatinine [Mass/Vol] 1.19 mg/dL High 0.55-1.02 [facility] GFR/1.73 sq M.predicted MDRD (S/P/Bld) [Vol rate/Area] 53 mL/min/{1.73_m2} Low >=60 [facility] Glucose [Mass/Vol] 273 mg/dL High 74-106 [facility] Magnesium [Mass/Vol] 1.7 mg/dL Low 1.8-2.4 [facility] Natriuretic peptide B (Bld) [Mass/Vol] 4572.0 pg/mL High <=1800.0 [facility] Comment on above: RESULTS CALLED TO SA RA MIGUEL RN @BY Alla Kevin [id number] Potassium [Moles/Vol] 3.6 mmol/L 3.5-5.1 [facility] Protein [Mass/Vol] 7.2 g/dL 6.4-8.2 [facility] Sodium [Moles/Vol] 135 mmol/L Low 136-145 [facility] Urea nitrogen [Mass/Vol] 34.0 mg/dL High 7.0-18.0 [facility] Urea nitrogen/Creatinine [Mass ratio] 28.6 mg/mg [facility] Laboratory - Hematology and Cell countson 03-27-2024 HbA1c (Bld) [Mass fraction] 11.2 % High 4.5-6.2 [facility] Comment on above: ADA RECOMMENDED LIMI T 4.0 - 6.0ADA THERAPEUTIC TARGET < 7.0ACTION SUGGESTED> 7.0 Immature granulocytes/100 WBC (Bld) 0.3 % 0.0-0.5 [facility] Leukocytes [#/volume] correc gali for nucleated erythrocytes in Blood by Automated counon 03-27-2024 WBC corrected for nucl RBC Auto (Bld) [#/Vol] 9.7 10 3/uL 4.0-11.0 [facility] Lymphocytes Auto (Bld) [#/Vo l]on 03-27-2024 Lymphocytes (Bld) [#/Vol] 1.3 10 3/uL 1.2-3.8 [facility] Lymphocytes/100 WBC Auto (Bl d)on 03-27-2024 Lymphocytes/100 WBC (Bld) 13.3 % Low 20.5-60.0 [facility] MCH Auto (RBC) [Entitic mass ]on 03-27-2024 MCH (RBC) [Entitic mass] 29.2 pg 26.7-34.0 [facility] MCHC Auto (RBC) [Mass/Vol]on 03-27-2024 MCHC (RBC) [Mass/Vol] 32.4 g/dL 29.9-35.2 [facility] MCV Auto (RBC) [Entitic vol] on 03-27-2024 MCV (RBC) [Entitic vol] 90.3 fL 81.0-99.0 [facility] Monocytes Auto (Bld) [#/Vol] on 03-27-2024 Monocytes (Bld) [#/Vol] 0.8 10 3/uL 0.3-0.8 [facility] Monocytes/100 WBC Auto (Bld) on 03-27-2024 Monocytes/100 WBC (Bld) 8.4 % 1.7-12.0 [facility] Neutrophils Auto (Bld) [#/Vo l]on 03-27-2024 Neutrophils (Bld) [#/Vol] 7.4 10 3/uL High 1.4-6.5 [facility] Neutrophils/100 WBC Auto (Bl d)on 03-27-2024 Neutrophils/100 WBC (Bld) 76.1 % High 43.0-75.0 [facility] No Panel Informationon 03-27 Eosinophils # (Auto) 0.1 10 3/uL 0.0-0.7 [facility] Immature Granulocyte # (Auto) 0.03 10 3/uL 0.00-0.03 [facility] 4572.0 pg/mL High <=1800.0 [facility] 1.7 mg/dL Low 1.8-2.4 [facility] 11.2 % High 4.5-6.2 [facility] 2.6 g/dL Low 3.4-5.0 [facility] 0.1 10 3/uL 0.0-0.7 [facility] 89 U/L 46-116 [facility] 12 U/L Low 14-59 [facility] 9 U/L Low 15-37 [facility] 28.6 [facility] 0.03 10 3/uL 0.00-0.03 [facility] 34.0 mg/dL High 7.0-18.0 [facility] 0.3 % 0.0-0.5 [facility] 9.1 mg/dL 8.5-10.1 [facility] 99 mmol/L 98-107 [facility] 28.8 mmol/L 21.0-32.0 [facility] 1.19 mg/dL High 0.55-1.02 [facility] 53 Low >=60 [facility] 273 mg/dL High 74-106 [facility] 3.6 mmol/L 3.5-5.1 [facility] 135 mmol/L Low 136-145 [facility] 0.9 mg/dL 0.2-1.0 [facility] 7.2 g/dL 6.4-8.2 [facility] Platelet mean volume Auto (B ld) [Entitic vol]on 03-27-2024 Platelet mean volume (Bld) [Entitic vol] 10.6 fL 9.5-13.5 [facility] Platelets Auto (Bld) [#/Vol] on 03-27-2024 Platelets (Bld) [#/Vol] 204 10 3/uL 150-450 [facility] RBC Auto (Bld) [#/Vol]on RBC (Bld) [#/Vol] 4.14 10 6/uL Low 4.20-5.40 [facility] Serum or plasma albumin/glob ulin mass ratioon 03-27-2024 Albumin/Globulin [Mass ratio] 0.6 {ratio} [facility] Serum or plasma anion gap de terminationon 03-27-2024 Anion gap [Moles/Vol] 10.8 mmol/L Fi [facility] Basophils Auto (Bld) [#/Vol] on 03-26-2024 Basophils (Bld) [#/Vol] 0.1 10 3/uL 0.0-0.1 [facility] Basophils/100 WBC Auto (Bld) on 03-26-2024 Basophils/100 WBC (Bld) 0.8 % 0.2-2.0 [facility] Eosinophils/100 WBC Auto (Bl d)on 03-26-2024 Eosinophils/100 WBC (Bld) 1.2 % 0.9-7.0 [facility] Erythrocyte distribution wid th Auto (RBC) [Ratio]on 03-26-2024 Erythrocyte distribution width (RBC) [Ratio] 14.5 % 11.0-15.0 [facility] Estimated glomerular filtrat ion rate (GFR) non- Americanon 03-26-2024 GFR/1.73 sq M.predicted among non-blacks MDRD (S/P/Bld) [Vol rate/Area] 46 mL/min/{1.73_m2} Low >=60 [facility] Glucose mean value [Mass/vol ume] in Blood Estimated from glycated hemoglobinon 03-26-2024 Average glucose Estimated from glycated hemoglobin (Bld) [Mass/Vol] 275 mg/dL [facility] Hematocrit Auto (Bld) [Volum e fraction]on 03-26-2024 Hematocrit (Bld) [Volume fraction] 40.1 % 36.0-48.0 [facility] Hemoglobin [Mass/volume] in Bloodon 03-26-2024 Hemoglobin (Bld) [Mass/Vol] 12.7 g/dL 12.0-16.0 [facility] Laboratory - Chemistry and C hemistry - challengeon 03-26-2024 Calcium [Mass/Vol] 9.1 mg/dL 8.5-10.1 [facility] Chloride [Moles/Vol] 102 mmol/L 98-107 [facility] CO2 [Moles/Vol] 28.5 mmol/L 21.0-32.0 [facility] Creatinine [Mass/Vol] 1.14 mg/dL High 0.55-1.02 [facility] Free T4 [Mass/Vol] 1.29 ng/dL 0.76-1.46 [facility] GFR/1.73 sq M.predicted MDRD (S/P/Bld) [Vol rate/Area] 56 mL/min/{1.73_m2} Low >=60 [facility] Glucose [Mass/Vol] 246 mg/dL High 74-106 [facility] Natriuretic peptide B (Bld) [Mass/Vol] 2890.0 pg/mL High <=1800.0 [facility] Comment on above: RESULTS CALLED TO YOEL ROBIN RN @BY Alla Kunz 0556 Potassium [Moles/Vol] 4.3 mmol/L 3.5-5.1 [facility] Sodium [Moles/Vol] 136 mmol/L 136-145 [facility] TSH Qn 6.001 m[IU]/L High 0.358-3.740 [facility] Urea nitrogen [Mass/Vol] 35.0 mg/dL High 7.0-18.0 [facility] Urea nitrogen/Creatinine [Mass ratio] 30.7 mg/mg [facility] Laboratory - Hematology and Cell countson 03-26-2024 HbA1c (Bld) [Mass fraction] 11.2 % High 4.5-6.2 [facility] Comment on above: ADA RECOMMENDED LIMI T 4.0 - 6.0ADA THERAPEUTIC TARGET < 7.0ACTION SUGGESTED> 7.0 Immature granulocytes/100 WBC (Bld) 0.2 % 0.0-0.5 [facility] Leukocytes [#/volume] correc gali for nucleated erythrocytes in Blood by Automated counon 03-26-2024 WBC corrected for nucl RBC Auto (Bld) [#/Vol] 8.3 10 3/uL 4.0-11.0 [facility] Lymphocytes Auto (Bld) [#/Vo l]on 03-26-2024 Lymphocytes (Bld) [#/Vol] 1.4 10 3/uL 1.2-3.8 [facility] Lymphocytes/100 WBC Auto (Bl d)on 03-26-2024 Lymphocytes/100 WBC (Bld) 16.5 % Low 20.5-60.0 [facility] MCH Auto (RBC) [Entitic mass ]on 03-26-2024 MCH (RBC) [Entitic mass] 29.1 pg 26.7-34.0 [facility] MCHC Auto (RBC) [Mass/Vol]on 03-26-2024 MCHC (RBC) [Mass/Vol] 31.7 g/dL 29.9-35.2 [facility] MCV Auto (RBC) [Entitic vol] on 03-26-2024 MCV (RBC) [Entitic vol] 92.0 fL 81.0-99.0 [facility] Monocytes Auto (Bld) [#/Vol] on 03-26-2024 Monocytes (Bld) [#/Vol] 0.7 10 3/uL 0.3-0.8 [facility] Monocytes/100 WBC Auto (Bld) on 03-26-2024 Monocytes/100 WBC (Bld) 7.9 % 1.7-12.0 [facility] Neutrophils Auto (Bld) [#/Vo l]on 03-26-2024 Neutrophils (Bld) [#/Vol] 6.1 10 3/uL 1.4-6.5 [facility] Neutrophils/100 WBC Auto (Bl d)on 03-26-2024 Neutrophils/100 WBC (Bld) 73.4 % 43.0-75.0 [facility] No Panel Informationon 03-26 Eosinophils # (Auto) 0.1 10 3/uL 0.0-0.7 [facility] Immature Granulocyte # (Auto) 0.02 10 3/uL 0.00-0.03 [facility] Troponin I High Sensitivity 12.4 pg/mL 4.0-51.3 [facility] Comment on above: CUT-OFF POINTS HAVE [...] DIAGNOSTIC AND CLINICAL INFORMATION. 1.29 ng/dL 0.76-1.46 [facility] 6.001 u[iU]/mL High 0.358-3.740 [facility] 2890.0 pg/mL High <=1800.0 [facility] 12.4 pg/mL 4.0-51.3 [facility] 11.2 % High 4.5-6.2 [facility] 30.7 [facility] 35.0 mg/dL High 7.0-18.0 [facility] 0.1 10 3/uL 0.0-0.7 [facility] 9.1 mg/dL 8.5-10.1 [facility] 102 mmol/L 98-107 [facility] 28.5 mmol/L 21.0-32.0 [facility] 1.14 mg/dL High 0.55-1.02 [facility] 0.02 10 3/uL 0.00-0.03 [facility] 56 Low >=60 [facility] 0.2 % 0.0-0.5 [facility] 246 mg/dL High 74-106 [facility] 4.3 mmol/L 3.5-5.1 [facility] 136 mmol/L 136-145 [facility] Platelet mean volume Auto (B ld) [Entitic vol]on 03-26-2024 Platelet mean volume (Bld) [Entitic vol] 10.8 fL 9.5-13.5 [facility] Platelets Auto (Bld) [#/Vol] on 03-26-2024 Platelets (Bld) [#/Vol] 225 10 3/uL 150-450 [facility] RBC Auto (Bld) [#/Vol]on RBC (Bld) [#/Vol] 4.36 10 6/uL 4.20-5.40 [facility] Serum or plasma anion gap de terminationon 03-26-2024 Anion gap [Moles/Vol] 9.8 mmol/L [facility] MR cervical spine wo conon 0 03-13-2024 MR cervical spine wo con [facility] [place] [address] [place] [address] MRI Report Signed Patient: Joe Call MR#: [id number] 0 : 1945 Acct:[id number] Age/Sex: 78 / F ADM Date: 03/13/24 Loc: [facility] Room: Type: [facility] Attending Dr: Eloina Hussein MD Copies [...] Jarred Randolph M.D.03/13/2024 3:47 PM Dictation Location: [place] [address] Transcribed By: [facility] 03/13/24 1547 Dictated By: Jarred Randolph DO 03/13/24 1542 Signed By: 03/13/24 1547 Normal [facility] XR pre/post mri xrayon 03-13 XR pre/post mri xray [facility] [address] [place] [address] [place] [address] MRI Report Signed Patient: Joe Call MR#: [id number] 0 : 1945 Acct:[id number] Age/Sex: 78 / F ADM Date: 03/13/24 Loc: [facility] Room: Type: [facility] Attending Dr: Eloina Hussein MD Copies to: Eloina Mullins MD Ordering Provider: Eloina Mullins MD Date of Service: 03/13/24 MR/MR lumbar spine wo con: M54.50 ([id number]) XR/XR pre/post mri xray: M54.50 MRI Lumbar [...] Jarred Randolph M.D.03/13/2024 3:58 PM Dictation Location: [place] [address] Transcribed By: [facility] 03/13/24 1558 Dictated By: Jarred Randolph DO 03/13/24 1551 Signed By: 03/13/24 1558 Normal [facility] Office Visiton 03-07-2024 Follow-up visit [id number] Joe Call 1945 F Date Provider Department Center 03/07/2024 RICA DEAN [facility] Family History Problem Relation Age of Onset Coronary artery disease Other Diabetes Other Polycystic kidney disease Other Family Status - Relation Status Age at Other Level of Service:14284 DC OFFICE/OUTPATIENT ESTABLISHED MOD MDM 30 MIN Reason for Visit and Comments: Follow-up [731306] - 6 month Normal [facility] GI PANEL (PCR)on 03-06-2023 Adenovirus F 40/41 Not detected Normal NOT DETECTED [facility] Comment on above: Performed By: #### P OCGLUC #### [facility] [address] [place] [address] Dr. Kasia Nath Astrovirus Not detected Normal NOT DETECTED [facility] Comment on above: Performed By: #### P OCGLUC #### [facility] [address] [place] [address] Dr. Kasia Nath C. Diff toxin A/B Detected Critically abnormal NOT DETECTED [facility] Comment on above: Performed By: #### P OCGLUC #### [facility] [address] [place] [address] Dr. Kasia Nath Campylobacter Detected Critically abnormal NOT DETECTED [facility] Comment on above: Performed By: #### P OCGLUC #### [facility] [address] [place] [address] Dr. Kasia Nath Cryptosporidium Not detected Normal NOT DETECTED [facility] Comment on above: Performed By: #### P OCGLUC #### [facility] [address] [address] [address] Kasia Nath Cyclos. Cayetanensis Not detected Normal NOT DETECTED [facility] Comment on above: Performed By: #### P OCGLUC #### [facility] [address] [place] [address] Dr. Kasia Nath E. Coli O157 Not Applicable Normal Not Applicable [facility] Comment on above: Performed By: #### P OCGLUC #### [facility] [address] [address] [address] Kasia Nath E. histolytica Not detected Normal NOT DETECTED [facility] Comment on above: Performed By: #### P OCGLUC #### [facility] [address] [place] [address] Dr. Kasia Nath EAEC Not detected Normal NOT DETECTED [facility] Comment on above: Performed By: #### P OCGLUC #### [facility] [address] [place] [address] Dr. Kasia Nath EIEC Not detected Normal NOT DETECTED [facility] Comment on above: Performed By: #### P OCGLUC #### [facility] [address] [place] [address] Dr. Kasia Nath EPEC Not detected Normal NOT DETECTED [facility] Comment on above: Performed By: #### P OCGLUC #### [facility] [address] [place] [address] Dr. Kasia Nath ETEC Not detected Normal NOT DETECTED [facility] Comment on above: Performed By: #### P OCGLUC #### [facility] [address] [place] [address] Dr. Kasia Nath G. Lamblia Not detected Normal NOT DETECTED [facility] Comment on above: Performed By: #### P OCGLUC #### [facility] [address] [place] [address] Dr. Kasia Nath GIPANEL CONTROLS PASSED Normal The [facility] Comment on above: Performed By: #### P OCGLUC #### [facility] [address] [address] [address] Kasia [facility] HEADER GI PANEL BACTERIA Normal [facility] Comment on above: Performed By: #### P OCGLUC #### [facility] [address] [address] [address] Kasia GE ECOLI GI PANEL DIARRHEAGENIC E.COLI / SHIGELLA Normal [facility] Comment on above: Performed By: #### P OCGLUC #### [facility] [address] [address] [address] aKsia GE INFO SEE BELOW [facility] Comment on above: Result Comment: EAEC - Enteroaggregative E. Coli EPEC- Enteropathogenic E. Coli ETEC- Enterotoxigenic E. Coli lt/st STEC- Shigella-like toxin-producing E. Coli stx1/stx2 EIEC- Shigella/Enteroinvasive E. Coli Performed By: #### P OCGLUC #### [facility] [address] [address] [address] Kasia GE PARASITES GI PANEL PARASITES Normal [facility] Comment on above: Performed By: #### P OCGLUC #### [facility] [address] [address] [address] Kasia GE VIRUS GI PANEL VIRUSES Normal [facility] Comment on above: Performed By: #### P OCGLUC #### [facility] [address] [address] [address] Kasia Nath Norovirus GI/GII Not detected Normal NOT DETECTED [facility] Comment on above: Performed By: #### P OCGLUC #### [facility] [address] [address] [address] Kasia Garland. Shigelloides Not detected Normal NOT DETECTED [facility] Comment on above: Performed By: #### P OCGLUC #### [facility] [address] [address] [address] Kasia Nath Rotavirus A Not detected Normal NOT DETECTED [facility] Comment on above: Performed By: #### P OCGLUC #### [facility] [address] [place] [address] Dr. Kasia Nath Salmonella Not detected Normal NOT DETECTED [facility] Comment on above: Performed By: #### P OCGLUC #### [facility] [address] [place] [address] Dr. Kasia Nath Sapovirus Not detected Normal NOT DETECTED [facility] Comment on above: Performed By: #### P OCGLUC #### [facility] [address] [place] [address] Dr. Kasia Nath STEC Not detected Normal NOT DETECTED [facility] Comment on above: Performed By: #### P OCGLUC #### [facility] [address] [place] [address] Dr. Kasia Nath Vibrio Not detected Normal NOT DETECTED [facility] Comment on above: Performed By: #### P OCGLUC #### [facility] [address] [place] [address] Dr. Kasia Nath Vibrio Cholera Not detected Normal NOT DETECTED [facility] Comment on above: Performed By: #### P OCGLUC #### [facility] [address] [place] [address] Dr. Kasia Nath Y. Enterocolitica Not detected Normal NOT DETECTED [facility] Comment on above: Performed By: #### P OCGLUC #### [facility] [address] [place] [address] Dr. Kasia Ntah CBC AUTO DIFFon 02-14-2023 BASO # 0.0 103/ul Normal 0.0-0.1 [facility] Comment on above: Performed By: #### P OCGLUC #### [facility] [address] [place] [address] Dr. Kasia Nath Basophils/100 WBC (Bld) 0.5 % Normal 0.2-2.0 [facility] Comment on above: Performed By: #### P OCGLUC #### [facility] [address] [place] [address] Dr. Kasia Nath EO # 0.2 103/ul Normal 0.0-0.7 [facility] Comment on above: Performed By: #### P OCGLUC #### [facility] [address] [address] [address] Kasia Nath Eosinophils/100 WBC (Bld) 2.7 % Normal 0.9-7.0 [facility] Comment on above: Performed By: #### P OCGLUC #### [facility] [address] [place] [address] Dr. Kasia Nath Erythrocyte distribution width (RBC) [Ratio] 13.0 % Normal 11.0-15.0 [facility] Comment on above: Performed By: #### P OCGLUC #### [facility] [address] [place] [address] Dr. Kasia Nath Hematocrit (Bld) [Volume fraction] 35.9 % Critically low 36.0-48.0 [facility] Comment on above: Performed By: #### P OCGLUC #### [facility] [address] [place] [address] Dr. Kasia Nath Hemoglobin (Bld) [Mass/Vol] 12.0 g/dL Normal 12.0-16.0 [facility] Comment on above: Performed By: #### P OCGLUC #### [facility] [address] [place] [address] Dr. Kasia Nath IG # 0.02 10e3/ul Normal 0.00-0.03 [facility] Comment on above: Performed By: #### P OCGLUC #### [facility] [address] [place] [address] Dr. Kasia Nath IG % 0.3 % Normal 0.0-0.5 [facility] Comment on above: Performed By: #### P OCGLUC #### [facility] [address] [place] [address] Dr. Kasia Nath LYMPH # 1.8 103/ul Normal 1.2-3.8 [facility] Comment on above: Performed By: #### P OCGLUC #### [facility] [address] [place] [address] Dr. Kasia Nath Lymphocytes/100 WBC (Bld) 22.8 % Normal 20.5-60.0 [facility] Comment on above: Performed By: #### P OCGLUC #### [facility] [address] [address] [address] Kasia Nath MANUAL DIFF REQ NO Normal [facility] Comment on above: Performed By: #### P OCGLUC #### [facility] [address] [place] [address] Dr. Kasia Nath MCH (RBC) [Entitic mass] 29.4 pg Normal 26.7-34.0 [facility] Comment on above: Performed By: #### P OCGLUC #### [facility] [address] [place] [address] Dr. Kasia Nath MCHC (RBC) [Mass/Vol] 33.4 g/dL Normal 29.9-35.2 [facility] Comment on above: Performed By: #### P OCGLUC #### [facility] [address] [place] [address] Dr. Kaisa Nath MCV (RBC) [Entitic vol] 88.0 fL Normal 81.0-99.0 [facility] Comment on above: Performed By: #### P OCGLUC #### [facility] [address] [place] [address] Dr. Kasia Nath MONO # 0.7 103/ul Normal 0.3-0.8 [facility] Comment on above: Performed By: #### P OCGLUC #### [facility] [address] [place] [address] Dr. Kasia Nath Monocytes/100 WBC (Bld) 9.3 % Normal 1.7-12.0 [facility] Comment on above: Performed By: #### P OCGLUC #### [facility] [address] [place] [address] Dr. Kasia Nath NEUT # 5.1 103/ul Normal 1.4-6.5 [facility] Comment on above: Performed By: #### P OCGLUC #### [facility] [address] [place] [address] Dr. Kasia Nath Neutrophils/100 WBC (Bld) 64.4 % Normal 43.0-75.0 [facility] Comment on above: Performed By: #### P OCGLUC #### [facility] [address] [address] [address] Kasia Nath Platelet mean volume (Bld) [Entitic vol] 11.7 fL Normal 9.5-13.5 [facility] Comment on above: Performed By: #### P OCGLUC #### [facility] [address] [address] [address] Kasia Nath PLT 175 103/ul Normal 150-450 [facility] Comment on above: Performed By: #### P OCGLUC #### [facility] [address] [address] [address] Kasia Nath RBC 4.08 106/ul Critically low 4.20-5.40 [facility] Comment on above: Performed By: #### P OCGLUC #### [facility] [address] [address] [address] Kasia Nath WBC 7.9 103/ul Normal 4.0-11.0 [facility] Comment on above: Performed By: #### P OCGLUC #### [facility] [address] [address] [address] Kasia Nath LIPASEon 02-14-2023 Lipase [Catalytic activity/Vol] 51.0 U/L Critically low 73.0-393.0 [facility] Comment on above: Performed By: #### L IPA, CMP ####[facility] [address] [address]Dr. Kasia Nath PROF 14(COMP METB)on 023 Albumin [Mass/Vol] 2.8 g/dL Critically low 3.4-5.0 [facility] Comment on above: Performed By: #### L IPA, CMP ####[facility] [address] [id number]. Kasia Nath Albumin/Globulin [Mass ratio] 0.7 {ratio} Normal [facility] Comment on above: Performed By: #### L IPA, CMP ####[facility] [address] [id number]. Kasia Nath ALP [Catalytic activity/Vol] 90 U/L Normal 46-116 [facility] Comment on above: Performed By: #### L IPA, CMP ####[facility] [address] [address]Dr. Kasia Nath ALT [Catalytic activity/Vol] 15 U/L Normal 14-59 [facility] Comment on above: Performed By: #### L IPA, CMP ####[facility] [address] [address]Dr. Kasia Nath Anion gap [Moles/Vol] 15.6 mmol/L Normal [facility] Comment on above: Performed By: #### L IPA, CMP ####[facility] [address] [place], [place] [address]Dr. Kasia Nath AST [Catalytic activity/Vol] 9 U/L Critically low 15-37 [facility] Comment on above: Performed By: #### L IPA, CMP ####[facility] [address] [place], [place] [address]Dr. Kasia Nath Bilirubin [Mass/Vol] 0.4 mg/dL Normal 0.2-1.0 [facility] Comment on above: Performed By: #### L IPA, CMP ####[facility] [address] [place], [place] [address]Dr. Kasia Nath Calcium [Mass/Vol] 9.1 mg/dL Normal 8.5-10.1 [facility] Comment on above: Performed By: #### L IPA, CMP ####[facility] [address] [place], [place] [address]Dr. Kasia Nath Chloride [Moles/Vol] 104 mmol/L Normal 98-107 [facility] Comment on above: Performed By: #### L IPA, CMP ####[facility] [address] [place], [place] [address]Dr. Kasia Nath CO2 [Moles/Vol] 17.0 mmol/L Critically low 21.0-32.0 [facility] Comment on above: Performed By: #### L IPA, CMP ####[facility] [address] [place], [place] [address]Dr. Kasia Nath Creatinine [Mass/Vol] 1.78 mg/dL Critically high 0.55-1.02 [facility] Comment on above: Performed By: #### L IPA, CMP ####[facility] [address] [place], [place] [address]Dr. Kasia Nath EGFR-AF YEMENI 34 mL/min/1.73m2 Critically low >=60 [facility] Comment on above: Performed By: #### L IPA, CMP ####[facility] [address] [place], [place] [address]Dr. Kasia Portillo EGFR-NON AF YEMENI 28 mL/min/1.73m2 Critically low >=60 [facility] Comment on above: Performed By: #### L IPA, CMP ####[facility] [address] [place], [place] [address]Dr. Kasia Nath Globulin (S) [Mass/Vol] 4.3 g/dL Normal [facility] Comment on above: Performed By: #### L IPA, CMP ####[facility] [address] [place], [place] [address]Dr. Kasia Nath Glucose [Mass/Vol] 248 mg/dL Critically high 74-106 [facility] Comment on above: Performed By: #### L IPA, CMP ####[facility] [address] [place], [place] [address]Dr. Kasia Nath Potassium [Moles/Vol] 4.6 mmol/L Normal 3.5-5.1 [facility] Comment on above: Performed By: #### L IPA, CMP ####[facility] [address] [place], [place] [address]Dr. Kasia Nath Protein [Mass/Vol] 7.1 g/dL Normal 6.4-8.2 [facility] Comment on above: Performed By: #### L IPA, CMP ####[facility] [address] [place], [place] [address]Dr. Kasia Nath Sodium [Moles/Vol] 132 mmol/L Critically low 136-145 [facility] Comment on above: Performed By: #### L IPA, CMP ####[facility] [address] [place], [place] [address]Dr. Kasia Nath Urea nitrogen [Mass/Vol] 78.0 mg/dL Critically high 7.0-18.0 [facility] Comment on above: Performed By: #### L IPA, CMP ####[facility] [address] [place], [place] [address]Dr. Kasia Portillo Urea nitrogen/Creatinine [Mass ratio] 43.8 mg/mg Normal [facility] Comment on above: Performed By: #### L IPA, CMP ####[facility] [address] [place], [place] [address]Dr. Kasia Portillo CBC AUTO DIFFon 02-13-2023 BASO # 0.0 103/ul Normal 0.0-0.1 [facility] Comment on above: Performed By: #### C BC ####[facility] M[address] [place], [place] [address]Dr. Kasia Nath Basophils/100 WBC (Bld) 0.5 % Normal 0.2-2.0 [facility] Comment on above: Performed By: #### C BC ####[facility] Sep[address] [place], [place] [address]Dr. Fartuncristy Nath EO # 0.1 103/ul Normal 0.0-0.7 [facility] Comment on above: Performed By: #### C BC ####[facility] [address] [place], [place] [address]Dr. Kasia Nath Eosinophils/100 WBC (Bld) 1.0 % Normal 0.9-7.0 [facility] Comment on above: Performed By: #### C BC ####[facility] [address] [place], [place] [address]Dr. Fartuncristy Nath Erythrocyte distribution width (RBC) [Ratio] 12.8 % Normal 11.0-15.0 [facility] Comment on above: Performed By: #### C BC ####[facility] [address] [place], [place] [address]Dr. Kasia Nath Hematocrit (Bld) [Volume fraction] 38.5 % Normal 36.0-48.0 [facility] Comment on above: Performed By: #### C BC ####[facility] [address] [id number]. Kasia Nath Hemoglobin (Bld) [Mass/Vol] 13.0 g/dL Normal 12.0-16.0 [facility] Comment on above: Performed By: #### C BC ####[facility] [address] [id number]. Kasia Nath IG # 0.02 10e3/ul Normal 0.00-0.03 [facility] Comment on above: Performed By: #### C BC ####[facility] [address] [address]Dr. Kasia Nath IG % 0.2 % Normal 0.0-0.5 [facility] Comment on above: Performed By: #### C BC ####[facility] [address] [place], [place] [address]Dr. Kasia Nath LYMPH # 0.9 103/ul Critically low 1.2-3.8 [facility] Comment on above: Performed By: #### C BC ####[facility] [address] [address]Dr. Kasia Nath Lymphocytes/100 WBC (Bld) 10.0 % Critically low 20.5-60.0 [facility] Comment on above: Performed By: #### C BC ####[facility] [address] [address]Dr. Kasia Nath MANUAL DIFF REQ NO Normal [facility] Comment on above: Performed By: #### C BC ####[facility] [address] [place], [place] [id number]. Kasia Nath MCH (RBC) [Entitic mass] 29.5 pg Normal 26.7-34.0 [facility] Comment on above: Performed By: #### C BC ####[facility] [address] [place], [place] [address]Dr. Kasia Nath MCHC (RBC) [Mass/Vol] 33.8 g/dL Normal 29.9-35.2 [facility] Comment on above: Performed By: #### C BC ####[facility] [address] [id number]. Kasia Nath MCV (RBC) [Entitic vol] 87.5 fL Normal 81.0-99.0 [facility] Comment on above: Performed By: #### C BC ####[facility] [address] [id number]. Kasia Nath MONO # 0.5 103/ul Normal 0.3-0.8 [facility] Comment on above: Performed By: #### C BC ####[facility] [address] [id number]. Kasia Nath Monocytes/100 WBC (Bld) 5.7 % Normal 1.7-12.0 [facility] Comment on above: Performed By: #### C BC ####[facility] [address] [place], [place] [id number]. Kasia Nath NEUT # 7.2 103/ul Critically high 1.4-6.5 [facility] Comment on above: Performed By: #### C BC ####[facility] [address] [place], [place] [id number]. Kasia Nath Neutrophils/100 WBC (Bld) 82.6 % Critically high 43.0-75.0 [facility] Comment on above: Performed By: #### C BC ####[facility] [address] [place], [place] [id number]. Kasia Nath Platelet mean volume (Bld) [Entitic vol] 11.8 fL Normal 9.5-13.5 [facility] Comment on above: Performed By: #### C BC ####[facility] [address] [id number]. Kasia Nath PLT 187 103/ul Normal 150-450 [facility] Comment on above: Performed By: #### C BC ####[facility] [address] [id number]. Fartuncristy Portillo RBC 4.40 106/ul Normal 4.20-5.40 [facility] Comment on above: Performed By: #### C BC ####[facility] [address] [place], [place] [address]Yz. Kasia Nath WBC 8.8 103/ul Normal 4.0-11.0 [facility] Comment on above: Performed By: #### C BC ####[facility] [address] [place], [place] [address]Bc. K[address] Naht CT ABD/PELVIS WO CONon 02-13 CT ABD/PELVIS [...] MCCURDY Date: 2023-02-13 14:40 Normal [facility] CULTURE URINEon 02-13-2023 CULTURE URINE Culture Observations : LIGHT GROWTH OF MIXED GENITAL VON. NO POTENTIAL PATHOGENS SEEN. Normal [facility] Comment on above: Performed By: #### U RCX ####[facility] [address] [place], [place] [address]Dr. Kasia Nath Covid-19 PCR (CVDTBH)on SARS-CoV-2 (COVID-19) RNA FERN+probe Ql (Unsp spec) Not detected Normal NOT DETECTED [facility] Comment on above: Result Comment: When [...] for this test is supported by the [place] of [employer] and Human Service's declaration that [...] Performed By: #### P OCGLUC #### [facility] [address] [place] [address] Dr. Kasia Nath GI PANEL (PCR)on 02-13-2023 Adenovirus F 40/41 Not detected Normal NOT DETECTED [facility] Comment on above: Performed By: #### C BC #### [facility] [address] [place] [address] Dr. Kasia Nath Astrovirus Not detected Normal NOT DETECTED [facility] Comment on above: Performed By: #### C BC #### [facility] [address] [place] [address] Dr. Kasia Del Real. Diff toxin A/B Not detected Normal NOT DETECTED [facility] Comment on above: Performed By: #### C BC #### [facility] [address] [place] [address] Dr. Kasia Nath Campylobacter Not detected Normal NOT DETECTED [facility] Comment on above: Performed By: #### C BC #### [facility] [address] [place] [address] Dr. Kasia Nath Cryptosporidium Not detected Normal NOT DETECTED [facility] Comment on above: Performed By: #### C BC #### [facility] [address] [place] [address] Dr. Kasia Nath Cyclos. Cayetanensis Not detected Normal NOT DETECTED [facility] Comment on above: Performed By: #### C BC #### [facility] [address] [place] [address] Dr. Kasia Nath E. Coli O157 Not Applicable Normal Not Applicable [facility] Comment on above: Performed By: #### C BC #### [facility] [address] [place] [address] Dr. Kasia Nath E. histolytica Not detected Normal NOT DETECTED [facility] Comment on above: Performed By: #### C BC #### [facility] [address] [place] [address] Dr. Kasia Nath EAEC Not detected Normal NOT DETECTED [facility] Comment on above: Performed By: #### C BC #### [facility] [address] [place] [address] Dr. Kasia Nath EIEC Not detected Normal NOT DETECTED [facility] Comment on above: Performed By: #### C BC #### [facility] [address] [place] [address] Dr. Kasia Nath EPEC Not detected Normal NOT DETECTED [facility] Comment on above: Performed By: #### C BC #### [facility] [address] [place] [address] Dr. Kasia Nath ETEC Not detected Normal NOT DETECTED [facility] Comment on above: Performed By: #### C BC #### [facility] [address] [place] [address] Dr. Kasia Nath G. Lamblia Not detected Normal NOT DETECTED [facility] Comment on above: Performed By: #### C BC #### [facility] [address] [place] [address] Dr. Kasia Nath GIPANEL CONTROLS PASSED Normal The [facility] Comment on above: Performed By: #### C BC #### [facility] [address] [address] [address] Kasia THOMPSON JUNO HEADER GI PANEL BACTERIA Normal T [facility] Comment on above: Performed By: #### C BC #### [facility] [address] [address] [address] Kasia GE ECOLI GI PANEL DIARRHEAGENIC E.COLI / SHIGELLA Normal [facility] Comment on above: Performed By: #### C BC #### [facility] [address] [address] [address] Kasia GE INFO SEE BELOW Normal [facility] Comment on above: Result Comment: EAEC - Enteroaggregative E. Coli EPEC- Enteropathogenic E. Coli ETEC- Enterotoxigenic E. Coli lt/st STEC- Shigella-like toxin-producing E. Coli stx1/stx2 EIEC- Shigella/Enteroinvasive E. Coli Performed By: #### C BC #### [facility] [address] [address] [address] Kasia GE PARASITES GI PANEL PARASITES Normal [facility] Comment on above: Performed By: #### C BC #### [facility] [address] [address] [address] Kasia GE VIRUS GI PANEL VIRUSES Normal The [facility] Comment on above: Performed By: #### C BC #### [facility] [address] [address] [address] Kasia Nath Norovirus GI/GII Not detected Normal NOT DETECTED The [facility] Comment on above: Performed By: #### C BC #### [facility] [address] [address] [address] Kasia Nath P. Shigelloides Not detected Normal NOT DETECTED [facility] Comment on above: Performed By: #### C BC #### [facility] [address] [address] [address] Kasia Nath Rotavirus A Not detected Normal NOT DETECTED [facility] Comment on above: Performed By: #### C BC #### [facility] [address] [address] [address] Kasia Nath Salmonella Not detected Normal NOT DETECTED [facility] Comment on above: Performed By: #### C BC #### [facility] [address] [place] [address] Dr. Kasia Nath Sapovirus Not detected Normal NOT DETECTED [facility] Comment on above: Performed By: #### C BC #### [facility] [address] [place] [address] Dr. Kasia Nath STEC Not detected Normal NOT DETECTED [facility] Comment on above: Performed By: #### C BC #### [facility] [address] [place] [address] Dr. Kasia Nath Vibrio Not detected Normal NOT DETECTED [facility] Comment on above: Performed By: #### C BC #### [facility] [address] [place] [address] Dr. Kasia Nath Vibrio Cholera Not detected Normal NOT DETECTED The [facility] Comment on above: Performed By: #### C BC #### [facility] [address] [place] [address] Dr. Kasia Nath Y. Enterocolitica Not detected Normal NOT DETECTED The [facility] Comment on above: Performed By: #### C BC #### [facility] [address] [place] [address] Dr. Kasia Nath LACTATE/LACTIC ACIDon 2022 Lactate [Moles/Vol] 1.7 mmol/L Normal 0.4-2.0 [facility] Comment on above: Performed By: #### L ACT ####[facility] [address] [address]. Kasia Nath LIPASEon 02-13-2023 Lipase [Catalytic activity/Vol] 82.0 U/L Normal 73.0-393.0 [facility] Comment on above: Performed By: #### L IPA, CMP #### [facility] [address] [place] [address] Dr. Kasia Nath POINT OF CARE GLUCOSEon Glucose [Mass/Vol] 229 mg/dL Critically high 74-106 T [facility] Comment on above: Performed By: #### P OCGLUC #### [facility] [address] [address] [address] Kasia Nath Glucose [Mass/Vol] 474 mg/dL Critically high 74-106 [facility] Comment on above: Performed By: #### P OCGLUC #### [facility] [address] [address] [address] Kasia Nath PROF 14(COMP METB)on 023 Albumin [Mass/Vol] 3.4 g/dL Normal 3.4-5.0 [facility] Comment on above: Performed By: #### L IPA, CMP #### [facility] [address] [place] [address] Dr. Kasia Nath Albumin/Globulin [Mass ratio] 0.7 {ratio} Normal [facility] Comment on above: Performed By: #### L IPA, CMP #### [facility] [address] [address] [address] Kasia Nath ALP [Catalytic activity/Vol] 106 U/L Normal 46-116 [facility] Comment on above: Performed By: #### L IPA, CMP #### [facility] [address] [place] [address] Dr. Kasia Nath ALT [Catalytic activity/Vol] 21 U/L Normal 14-59 [facility] Comment on above: Performed By: #### L IPA, CMP #### [facility] [address] [address] [address] Kasia Nath Anion gap [Moles/Vol] 17.7 mmol/L Normal [facility] Comment on above: Performed By: #### L IPA, CMP #### [facility] [address] [address] [address] Kasia Nath AST [Catalytic activity/Vol] 11 U/L Critically low 15-37 [facility] Comment on above: Performed By: #### L IPA, CMP #### [facility] [address] [place] [address] Dr. Kasia Nath Bilirubin [Mass/Vol] 0.5 mg/dL Normal 0.2-1.0 [facility] Comment on above: Performed By: #### L IPA, CMP #### [facility] [address] [place] [address] Dr. Kasia Nath Calcium [Mass/Vol] 9.6 mg/dL Normal 8.5-10.1 [facility] Comment on above: Performed By: #### L IPA, CMP #### [facility] [address] [place] [address] Dr. Kasia Nath Chloride [Moles/Vol] 99 mmol/L Normal 98-107 [facility] Comment on above: Performed By: #### L IPA, CMP #### [facility] [address] [place] [address] Dr. Kasia Nath CO2 [Moles/Vol] 20.6 mmol/L Critically low 21.0-32.0 [facility] Comment on above: Performed By: #### L IPA, CMP #### [facility] [address] [place] [address] Dr. Kasia Nath Creatinine [Mass/Vol] 2.14 mg/dL Critically high 0.55-1.02 [facility] Comment on above: Performed By: #### L IPA, CMP #### [facility] [address] [place] [address] Dr. Kasia Nath EGFR-AF YEMENI 27 mL/min/1.73m2 Critically low >=60 [facility] Comment on above: Performed By: #### L IPA, CMP #### [facility] [address] [place] [address] Dr. Kasia Nath EGFR-NON AF YEMENI 22 mL/min/1.73m2 Critically low >=60 [facility] Comment on above: Performed By: #### L IPA, CMP #### [facility] [address] [place] [address] Dr. Kasia Nath Globulin (S) [Mass/Vol] 4.8 g/dL Normal T [facility] Comment on above: Performed By: #### L IPA, CMP #### [facility] [address] [place] [address] Dr. Kasia Nath Glucose [Mass/Vol] 498 mg/dL Critically high 74-106 [facility] Comment on above: Performed By: #### L IPA, CMP #### [facility] [address] [address] [address] Kasia Nath Potassium [Moles/Vol] 5.3 mmol/L Critically high 3.5-5.1 [facility] Comment on above: Performed By: #### L IPA, CMP #### [facility] [address] [address] [address] Kasia Nath Protein [Mass/Vol] 8.2 g/dL Normal 6.4-8.2 [facility] Comment on above: Performed By: #### L IPA, CMP #### [facility] [address] [address] [address] Kasia Nath Sodium [Moles/Vol] 132 mmol/L Critically low 136-145 [facility] Comment on above: Performed By: #### L IPA, CMP #### [facility] [address] [address] [address] Kasia Nath Urea nitrogen [Mass/Vol] 86.0 mg/dL Critically high 7.0-18.0 [facility] Comment on above: Performed By: #### L IPA, CMP #### [facility] [address] [place] [address] Dr. Kasia Nath Urea nitrogen/Creatinine [Mass ratio] 40.2 mg/mg Normal [facility] Comment on above: Performed By: #### L IPA, CMP #### [facility] [address] [address] [address] Kasia Nath UA RANDOM W/MICROSCOPICon BACTERIA TRACE Abnormal NONE SEEN [facility] Comment on above: Performed By: #### U AMIC ####[facility] [address] [address]Dr. Kasia Nath Bilirubin Ql (U) Negative Normal NEGATIVE The [facility] Comment on above: Performed By: #### U AMIC ####[facility] [address] [address]Dr. Kasia Nath CAST SEEN Abnormal NONE SEEN The [facility] Comment on above: Performed By: #### U AMIC ####[facility] [address] [address]Dr. Kasia Nath Clarity (U) CLEAR Normal CLEAR [facility] Comment on above: Performed By: #### U AMIC ####[facility] [address] [address]Dr. Kasia Nath Color (U) LT. YELLOW Normal YELLOW The [facility] Comment on above: Performed By: #### U AMIC ####[facility] [address] [address]Dr. Kasia Nath Crystals LM Nom (Urine sed) NONE SEEN Normal NONE SEEN The [facility] Comment on above: Performed By: #### U AMIC ####[facility] [address] [address]Dr. Kasia Nath Epithelial cells LM Ql (Urine sed) FEW Abnormal NONE SEEN /RARE The [facility] Comment on above: Performed By: #### U AMIC ####[facility] [address] [place], [place] [address]Dr. Kasia Nath Glucose Ql (U) >1000 Abnormal NEGATIVE The [facility] Comment on above: Performed By: #### U AMIC ####[facility] [address] [place], [place] [address]Dr. Kasia Nath Hemoglobin Ql (U) Negative Normal NEGATIVE The [facility] Comment on above: Performed By: #### U AMIC ####[facility] [address] [place], [place] [address]Dr. Kasia Nath HYALINE CAST RARE Normal The [facility] Comment on above: Performed By: #### U AMIC ####[facility] [address] [place], [place] [address]Dr. Kasia Nath Ketones Ql (U) Negative Normal NEGATIVE [facility] Comment on above: Performed By: #### U AMIC ####[facility] [address] [place], [place] [address]Dr. Kasia Nath LEUKOCYTES Negative Normal NEGATIVE The [facility] Comment on above: Performed By: #### U AMIC ####[facility] [address] [address]Dr. Kasia Nath MUCOUS NONE SEEN Normal NONE SEEN The [facility] Comment on above: Performed By: #### U AMIC ####[facility] [address] [address]Dr. Kasia Nath Nitrite Ql (U) Negative Normal NEGATIVE [facility] Comment on above: Performed By: #### U AMIC ####[facility] [address] [place], [place] [address]Dr. Kasia Nath pH (U) 5.5 [pH] Normal 5-9 [facility] Comment on above: Performed By: #### U AMIC ####[facility] [address] [place], [place] [address]Dr. Kasia Nath RBC 0-2 Normal 0-2 [facility] Comment on above: Performed By: #### U AMIC ####[facility] [address] [place], [place] [address]Dr. Kasia Nath SPEC GRAVITY 1.015 Normal 1.005-<=1.02 5 [facility] Comment on above: Performed By: #### U AMIC ####[facility] [address] [place], [place] [address]Dr. Kasia Nath UA PROTEIN TRACE Normal NEGATIVE/ TRACE The [facility] Comment on above: Performed By: #### U AMIC ####[facility] [address] [place], [place] [address]Dr. Kasia Nath Urobilinogen Qn (U) 0.2 {Meka'U}/dL Normal 0.2 - 1. 0 The [facility] Comment on above: Performed By: #### U AMIC ####[facility] Sz[address] [place], [place] [address]Dr. Kasia Nath WBC 0-2 Abnormal NONE SEEN [facility] Comment on above: Performed By: #### U AMIC ####[facility] Eddqi[address] [place], [place] [address]Dr. Kasia Nath BNPon 01-16-2023 Natriuretic peptide B (Bld) [Mass/Vol] 1675.0 pg/mL Normal <=1,800.0 [facility] Comment on above: Performed By: #### B HAND FABRIC CUTTER, CMP ####[facility] [address] [place], [place] [address]Dr. Kasia Nath PROF 14(COMP METB)on 023 Albumin [Mass/Vol] 3.4 g/dL Normal 3.4-5.0 [facility] Comment on above: Performed By: #### B HAND FABRIC CUTTER, CMP ####[facility] X[address] [place], [place] [address]Dr. Kasia Nath Albumin/Globulin [Mass ratio] 0.8 {ratio} Normal [facility] Comment on above: Performed By: #### B HAND FABRIC CUTTER, CMP ####[facility] [address] [place], [place] [address]Dr. Kasia Nath ALP [Catalytic activity/Vol] 99 U/L Normal 46-116 [facility] Comment on above: Performed By: #### B HAND FABRIC CUTTER, CMP ####[facility] Yct[address]bznd[address] [place], [place] [address]Dr. Kasia Nath ALT [Catalytic activity/Vol] 18 U/L Normal 14-59 [facility] Comment on above: Performed By: #### B HAND FABRIC CUTTER, CMP ####[facility] X[address] [place], [place] [address]Dr. Kasia Nath Anion gap [Moles/Vol] 10.6 mmol/L Normal [facility] Comment on above: Performed By: #### B HAND FABRIC CUTTER, CMP ####[facility] [address]xf[address] [place], [place] [address]Dr. Kasia Nath AST [Catalytic activity/Vol] 15 U/L Normal 15-37 [facility] Comment on above: Performed By: #### B HAND FABRIC CUTTER, CMP ####[facility] T[address] [place], [place] [address]Dr. Kasia Nath Bilirubin [Mass/Vol] 0.5 mg/dL Normal 0.2-1.0 [facility] Comment on above: Performed By: #### B HAND FABRIC CUTTER, CMP ####[facility] Oz[address]xs[address] [place], [place] [address]Dr. Kasia Nath Calcium [Mass/Vol] 9.1 mg/dL Normal 8.5-10.1 [facility] Comment on above: Performed By: #### B HAND FABRIC CUTTER, CMP ####[facility] [address] [place], [place] [address]Dr. Kasia Nath Chloride [Moles/Vol] 98 mmol/L Normal 98-107 [facility] Comment on above: Performed By: #### B HAND FABRIC CUTTER, CMP ####[facility] Z[address] [place], [place] [address]Dr. Kasia Nath CO2 [Moles/Vol] 30.4 mmol/L Normal 21.0-32.0 [facility] Comment on above: Performed By: #### B HAND FABRIC CUTTER, CMP ####[facility] [address] [place], [place] [address]Dr. Kasia Nath Creatinine [Mass/Vol] 1.44 mg/dL Critically high 0.55-1.02 [facility] Comment on above: Performed By: #### B HAND FABRIC CUTTER, CMP ####[facility] [address] [place], [place] [address]Dr. Kasia Nath EGFR-AF YEMENI 43 mL/min/1.73m2 Critically low >=60 [facility] Comment on above: Performed By: #### B HAND FABRIC CUTTER, CMP ####[facility] H[address]zc[address]chsx[address] [place], [place] [address]Dr. Kasia Nath EGFR-NON AF YEMENI 35 mL/min/1.73m2 Critically low >=60 [facility] Comment on above: Performed By: #### B HAND FABRIC CUTTER, CMP ####[facility] K[address] [place], [place] [address]Dr. Kasia Nath Globulin (S) [Mass/Vol] 4.4 g/dL Normal [facility] Comment on above: Performed By: #### B HAND FABRIC CUTTER, CMP ####[facility] [address] [place], [place] [address]Dr. Kasia Ntah Glucose [Mass/Vol] 401 mg/dL Critically high 74-106 [facility] Comment on above: Performed By: #### B HAND FABRIC CUTTER, CMP ####[facility] [address] [address]Dr. Kasia Nath Potassium [Moles/Vol] 5.0 mmol/L Normal 3.5-5.1 [facility] Comment on above: Performed By: #### B HAND FABRIC CUTTER, CMP ####[facility] [address] [address]Dr. Kasia Nath Protein [Mass/Vol] 7.8 g/dL Normal 6.4-8.2 [facility] Comment on above: Performed By: #### B HAND FABRIC CUTTER, CMP ####[facility] [address] [place], [place] [address]Dr. Kasia Nath Sodium [Moles/Vol] 134 mmol/L Critically low 136-145 Th [facility] Comment on above: Performed By: #### B HAND FABRIC CUTTER, CMP ####[facility] E[address]zt[address] [place], [place] [address]Dr. Kasia Nath Urea nitrogen [Mass/Vol] 46.0 mg/dL Critically high 7.0-18.0 [facility] Comment on above: Performed By: #### B HAND FABRIC CUTTER, CMP ####[facility] Jr[address] [place], [place] [address]Dr. Kasia Nath Urea nitrogen/Creatinine [Mass ratio] 31.9 mg/mg Normal [facility] Comment on above: Performed By: #### B HAND FABRIC CUTTER, CMP ####[facility] [address] [place], [place] [address]Dr. Kasia Nath BNPon 01-05-2023 Natriuretic peptide B (Bld) [Mass/Vol] 1389.0 pg/mL Normal <=1,800.0 [facility] Comment on above: Performed By: #### B HAND FABRIC CUTTER, CMADM, CMP ####[facility] [address] [place], [place] [address]Dr. Kasia Nath CARDIAC EMERY ADMITon 023 CK [Catalytic activity/Vol] 138 U/L Normal 26-192 [facility] Comment on above: Performed By: #### B HAND FABRIC CUTTER, CMADM, CMP ####[facility] [address] [id number]. Kasia Nath CK.MB [Mass/Vol] 2.22 ng/mL Normal <=3.60 [facility] Comment on above: Performed By: #### B HAND FABRIC CUTTER, CMADM, CMP ####[facility] [address] [id number] Nath HSTROP 15.9 pg/mL Normal 4.0-51.3 [facility] Comment on above: Result Comment: CUT- OFF POINTS HAVE BEEN ESTABLISHED BASED ON THE FOURTH UNIVERSAL DEFINITIONS OF MYOCARDIAL INFARCTION. THE UPPER REFERENCE LIMIT (URL) OF TROPONIN, DEFINED THE 99TH PERCENTILE OF cTnI DISTRIBUTION IN A REFERENCE POPULATION, HAS BEEN CONFIRMED THE DECISION THRESHOLD FOR [place] DIAGNOSIS. Performed By: #### B HAND FABRIC CUTTER, CMADM, CMP ####[facility] [address] [address]DrDoreen Nath GRETTA 178 ng/mL Critically high 9-82 [facility] Comment on above: Performed By: #### B HAND FABRIC CUTTER, CMADM, CMP ####[facility] [address] [id number] Nath CBC AUTO DIFFon 01-05-2023 BASO # 0.1 103/ul Normal 0.0-0.1 [facility] Comment on above: Performed By: #### C BC #### [facility] [address] [address] [address] Kasia Nath Basophils/100 WBC (Bld) 0.7 % Normal 0.2-2.0 [facility] Comment on above: Performed By: #### C BC #### [facility] [address] [address] [address] Kasia Nath EO # 0.3 103/ul Normal 0.0-0.7 [facility] Comment on above: Performed By: #### C BC #### [facility] [address] [address] [address] Kasia Nath Eosinophils/100 WBC (Bld) 2.9 % Normal 0.9-7.0 [facility] Comment on above: Performed By: #### C BC #### [facility] [address] [place] [address] Dr. Kasia Nath Erythrocyte distribution width (RBC) [Ratio] 13.5 % Normal 11.0-15.0 [facility] Comment on above: Performed By: #### C BC #### [facility] [address] [place] [address] Dr. Kasia Nath Hematocrit (Bld) [Volume fraction] 39.8 % Normal 36.0-48.0 [facility] Comment on above: Performed By: #### C BC #### [facility] [address] [place] [address] Dr. Kasia Nath Hemoglobin (Bld) [Mass/Vol] 13.5 g/dL Normal 12.0-16.0 [facility] Comment on above: Performed By: #### C BC #### [facility] [address] [place] [address] Dr. Kasia Nath IG # 0.02 10e3/ul Normal 0.00-0.03 [facility] Comment on above: Performed By: #### C BC #### [facility] [address] [place] [address] Dr. Kasia Nath IG % 0.2 % Normal 0.0-0.5 [facility] Comment on above: Performed By: #### C BC #### [facility] [address] [place] [address] Dr. Kasia Nath LYMPH # 1.9 103/ul Normal 1.2-3.8 [facility] Comment on above: Performed By: #### C BC #### [facility] [address] [place] [address] Dr. Kasia Nath Lymphocytes/100 WBC (Bld) 22.0 % Normal 20.5-60.0 [facility] Comment on above: Performed By: #### C BC #### [facility] [address] [place] [address] Dr. Kasia Nath MANUAL DIFF REQ NO Normal [facility] Comment on above: Performed By: #### C BC #### [facility] [address] [place] [address] Dr. Kasia Nath MCH (RBC) [Entitic mass] 29.8 pg Normal 26.7-34.0 [facility] Comment on above: Performed By: #### C BC #### [facility] [address] [place] [address] Dr. Kasia Nath MCHC (RBC) [Mass/Vol] 33.9 g/dL Normal 29.9-35.2 [facility] Comment on above: Performed By: #### C BC #### [facility] [address] [place] [address] Dr. Kasia Nath MCV (RBC) [Entitic vol] 87.9 fL Normal 81.0-99.0 [facility] Comment on above: Performed By: #### C BC #### [facility] [address] [place] [address] Dr. Kasia Nath MONO # 0.8 103/ul Normal 0.3-0.8 [facility] Comment on above: Performed By: #### C BC #### [facility] [address] [place] [address] Dr. Kasia Nath Monocytes/100 WBC (Bld) 8.8 % Normal 1.7-12.0 [facility] Comment on above: Performed By: #### C BC #### [facility] [address] [place] [address] Dr. Kasia Nath NEUT # 5.6 103/ul Normal 1.4-6.5 [facility] Comment on above: Performed By: #### C BC #### [facility] [address] [place] [address] Dr. Kasia Nath Neutrophils/100 WBC (Bld) 65.4 % Normal 43.0-75.0 [facility] Comment on above: Performed By: #### C BC #### [facility] [address] [place] [address] Dr. Kasia Nath Platelet mean volume (Bld) [Entitic vol] 10.6 fL Normal 9.5-13.5 [facility] Comment on above: Performed By: #### C BC #### [facility] [address] [address] [address] Kasia Nath PLT 222 103/ul Normal 150-450 [facility] Comment on above: Performed By: #### C BC #### [facility] [address] [place] [address] Dr. Kaisa Nath RBC 4.53 106/ul Normal 4.20-5.40 [facility] Comment on above: Performed By: #### C BC #### [facility] [address] [place] [address] Dr. Kasia Nath WBC 8.6 103/ul Normal 4.0-11.0 [facility] Comment on above: Performed By: #### C BC #### [facility] [address] [place] [address] Dr. Kasia Nath PROF 14(COMP METB)on 023 Albumin [Mass/Vol] 3.3 g/dL Critically low 3.4-5.0 [facility] Comment on above: Performed By: #### B HAND FABRIC CUTTER, CMADM, CMP #### [facility] [address] [place] [address] Dr. Kasia Nath Albumin/Globulin [Mass ratio] 0.7 {ratio} Normal [facility] Comment on above: Performed By: #### B HAND FABRIC CUTTER, CMADM, CMP #### [facility] [address] [place] [address] Dr. Kasia Nath ALP [Catalytic activity/Vol] 106 U/L Normal 46-116 [facility] Comment on above: Performed By: #### B HAND FABRIC CUTTER, CMADM, CMP #### [facility] [address] [place] [address] Dr. Kasia Nath ALT [Catalytic activity/Vol] 22 U/L Normal 14-59 [facility] Comment on above: Performed By: #### B HAND FABRIC CUTTER, CMADM, CMP #### [facility] [address] [place] [address] Dr. Kasia Nath Anion gap [Moles/Vol] 12.0 mmol/L Normal [facility] Comment on above: Performed By: #### B HAND FABRIC CUTTER, CMADM, CMP #### [facility] [address] [address] [address] Kasia Nath AST [Catalytic activity/Vol] 23 U/L Normal 15-37 [facility] Comment on above: Performed By: #### B HAND FABRIC CUTTER, CMADM, CMP #### [facility] [address] [address] [address] Kasia Nath Bilirubin [Mass/Vol] 0.7 mg/dL Normal 0.2-1.0 [facility] Comment on above: Performed By: #### B HAND FABRIC CUTTER, CMADM, CMP #### [facility] [address] [address] [address] Kasia Nath Calcium [Mass/Vol] 8.8 mg/dL Normal 8.5-10.1 [facility] Comment on above: Performed By: #### B HAND FABRIC CUTTER, CMADM, CMP #### [facility] [address] [place] [address] Dr. Kasia Nath Chloride [Moles/Vol] 98 mmol/L Normal 98-107 [facility] Comment on above: Performed By: #### B HAND FABRIC CUTTER, CMADM, CMP #### [facility] [address] [address] [address] Kasia Nath CO2 [Moles/Vol] 30.2 mmol/L Normal 21.0-32.0 [facility] Comment on above: Performed By: #### B HAND FABRIC CUTTER, CMADM, CMP #### [facility] [address] [address] [address] Kasia Nath Creatinine [Mass/Vol] 1.19 mg/dL Critically high 0.55-1.02 [facility] Comment on above: Performed By: #### B HAND FABRIC CUTTER, CMADM, CMP #### [facility] [address] [address] [address] Kasia Nath EGFR-AF YEMENI 53 mL/min/1.73m2 Critically low >=60 [facility] Comment on above: Performed By: #### B HAND FABRIC CUTTER, CMADM, CMP #### [facility] [address] [address] [address] Kasia Nath EGFR-NON AF YEMENI 44 mL/min/1.73m2 Critically low >=60 [facility] Comment on above: Performed By: #### B HAND FABRIC CUTTER, CMADM, CMP #### [facility] [address] [address] [address] Kasia Nath Globulin (S) [Mass/Vol] 4.7 g/dL Normal [facility] Comment on above: Performed By: #### B HAND FABRIC CUTTER, CMADM, CMP #### [facility] [address] [address] [address] Kasia Nath Glucose [Mass/Vol] 124 mg/dL Critically high 74-106 [facility] Comment on above: Performed By: #### B HAND FABRIC CUTTER, CMADM, CMP #### [facility] [address] [place] [address] Dr. Kasia Nath Potassium [Moles/Vol] 3.2 mmol/L Critically low 3.5-5.1 [facility] Comment on above: Performed By: #### B HAND FABRIC CUTTER, CMADM, CMP #### [facility] [address] [place] [address] Dr. Kasia Nath Protein [Mass/Vol] 8.0 g/dL Normal 6.4-8.2 [facility] Comment on above: Performed By: #### B HAND FABRIC CUTTER, CMADM, CMP #### [facility] [address] [place] [address] Dr. Kasia Nath Sodium [Moles/Vol] 137 mmol/L Normal 136-145 [facility] Comment on above: Performed By: #### B HAND FABRIC CUTTER, CMADM, CMP #### [facility] [address] [place] [address] Dr. Kasia Nath Urea nitrogen [Mass/Vol] 29.0 mg/dL Critically high 7.0-18.0 [facility] Comment on above: Performed By: #### B HAND FABRIC CUTTER, CMADM, CMP #### [facility] [address] [place] [address] Dr. Kasia Nath Urea nitrogen/Creatinine [Mass ratio] 24.4 mg/mg Normal [facility] Comment on above: Performed By: #### B HAND FABRIC CUTTER, CMADM, CMP #### [facility] [address] [address] [address] Kasia Nath TROPONIN, HIGH SENSITIVITYon 01-05-2023 HSTROP 18.4 pg/mL Normal 4.0-51.3 [facility] Comment on above: Result Comment: CUT- OFF POINTS HAVE BEEN ESTABLISHED BASED ON THE FOURTH UNIVERSAL DEFINITIONS OF MYOCARDIAL INFARCTION. THE UPPER REFERENCE LIMIT (URL) OF TROPONIN, DEFINED THE 99TH PERCENTILE OF cTnI DISTRIBUTION IN A REFERENCE POPULATION, HAS BEEN CONFIRMED THE DECISION THRESHOLD FOR [place] DIAGNOSIS. Performed By: #### H STROPN ####[facility] [id number] [id number]. Kasia Nath XR CHEST 1 Von 01-05-2023 [...] ROJAS Date: 2023-01-05 04:39 Normal [facility] BNPon 01-02-2023 Natriuretic peptide B (Bld) [Mass/Vol] 2583.0 pg/mL Critically high <=1,800.0 [facility] Comment on above: Performed By: #### B HAND FABRIC CUTTER, CMP ####[facility] [address] [id number]. Kasia Nath CBC AUTO DIFFon 01-02-2023 BASO # 0.1 103/ul Normal 0.0-0.1 [facility] Comment on above: Performed By: #### P OCGLUC #### [facility] [address] [address] [address] Kasia Nath Basophils/100 WBC (Bld) 0.9 % Normal 0.2-2.0 [facility] Comment on above: Performed By: #### P OCGLUC #### [facility] [address] [place] [address] Dr. Kasia Nath EO # 0.2 103/ul Normal 0.0-0.7 [facility] Comment on above: Performed By: #### P OCGLUC #### [facility] [address] [place] [address] Dr. Kasia Nath Eosinophils/100 WBC (Bld) 2.3 % Normal 0.9-7.0 [facility] Comment on above: Performed By: #### P OCGLUC #### [facility] [address] [place] [address] Dr. Kasia Nath Erythrocyte distribution width (RBC) [Ratio] 13.8 % Normal 11.0-15.0 [facility] Comment on above: Performed By: #### P OCGLUC #### [facility] [address] [place] [address] Dr. Kasia Nath Hematocrit (Bld) [Volume fraction] 35.5 % Critically low 36.0-48.0 [facility] Comment on above: Performed By: #### P OCGLUC #### [facility] [address] [place] [address] Dr. Kasia Nath Hemoglobin (Bld) [Mass/Vol] 11.6 g/dL Critically low 12.0-16.0 [facility] Comment on above: Performed By: #### P OCGLUC #### [facility] [address] [place] [address] Dr. Kasia Nath IG # 0.02 10e3/ul Normal 0.00-0.03 [facility] Comment on above: Performed By: #### P OCGLUC #### [facility] [address] [place] [address] Dr. Kasia Nath IG % 0.3 % Normal 0.0-0.5 [facility] Comment on above: Performed By: #### P OCGLUC #### [facility] [address] [address] [address] Kasia Nath LYMPH # 2.0 103/ul Normal 1.2-3.8 [facility] Comment on above: Performed By: #### P OCGLUC #### [facility] [address] [place] [address] Dr. Kasia Nath Lymphocytes/100 WBC (Bld) 24.8 % Normal 20.5-60.0 [facility] Comment on above: Performed By: #### P OCGLUC #### [facility] [address] [place] [address] Dr. Kasia Nath MANUAL DIFF REQ NO Normal [facility] Comment on above: Performed By: #### P OCGLUC #### [facility] [address] [place] [address] Dr. Kasia Nath MCH (RBC) [Entitic mass] 28.7 pg Normal 26.7-34.0 [facility] Comment on above: Performed By: #### P OCGLUC #### [facility] [address] [place] [address] Dr. Kasia Nath MCHC (RBC) [Mass/Vol] 32.7 g/dL Normal 29.9-35.2 [facility] Comment on above: Performed By: #### P OCGLUC #### [facility] [address] [place] [address] Dr. Kasia Nath MCV (RBC) [Entitic vol] 87.9 fL Normal 81.0-99.0 [facility] Comment on above: Performed By: #### P OCGLUC #### [facility] [address] [place] [address] Dr. Kasia Nath MONO # 0.8 103/ul Normal 0.3-0.8 [facility] Comment on above: Performed By: #### P OCGLUC #### [facility] [address] [place] [address] Dr. Kasia Nath Monocytes/100 WBC (Bld) 9.6 % Normal 1.7-12.0 [facility] Comment on above: Performed By: #### P OCGLUC #### [facility] [address] [address] [address] Kasia Nath NEUT # 5.0 103/ul Normal 1.4-6.5 [facility] Comment on above: Performed By: #### P OCGLUC #### [facility] [address] [address] [address] Kasia Nath Neutrophils/100 WBC (Bld) 62.1 % Normal 43.0-75.0 [facility] Comment on above: Performed By: #### P OCGLUC #### [facility] [address] [address] [address] Kasia Nath Platelet mean volume (Bld) [Entitic vol] 10.7 fL Normal 9.5-13.5 [facility] Comment on above: Performed By: #### P OCGLUC #### [facility] [address] [address] [address] Kasia Nath PLT 204 103/ul Normal 150-450 [facility] Comment on above: Performed By: #### P OCGLUC #### [facility] [address] [address] [address] Kasia Nath RBC 4.04 106/ul Critically low 4.20-5.40 [facility] Comment on above: Performed By: #### P OCGLUC #### [facility] [address] [address] [address] Kasia Nath WBC 8.0 103/ul Normal 4.0-11.0 [facility] Comment on above: Performed By: #### P OCGLUC #### [facility] [address] [address] [address] Kasia Nath GLYCOHEMOGLOBIN A1Con 2022 ADA RECOMMENDATION SEE BELOW Normal [facility] Comment on above: Result Comment: ADA RECOMMENDED LIMIT 4.0 - 6.0 ADA THERAPEUTIC TARGET < 7.0 ACTION SUGGESTED > 7.0 Performed By: #### A 1C ####[facility] [address] [id number]. Kasia Nath Glucose [Mass/Vol] 298 mg/dL Normal [facility] Comment on above: Performed By: #### A 1C ####[facility] [address] [id number]. Kasia Nath HbA1c (Bld) [Mass fraction] 12.0 % Critically high 4.5-6.2 [facility] Comment on above: Performed By: #### A 1C ####[facility] [address] [id number] Nath POINT OF CARE GLUCOSEon 12-14 Glucose [Mass/Vol] 227 mg/dL Critically high 74-106 [facility] Comment on above: Performed By: #### C BC #### [facility] [address] [address] [address] Kasia Nath Glucose [Mass/Vol] 214 mg/dL Critically high -106 [facility] Comment on above: Performed By: #### C BC #### [facility] [address] [address] [address] Kasia Nath PROF 14(COMP METB)on 023 Albumin [Mass/Vol] 2.6 g/dL Critically low 3.4-5.0 [facility] Comment on above: Performed By: #### B HAND FABRIC CUTTER, CMP ####[facility] [address] [address]Dr. Kasia Nath Albumin/Globulin [Mass ratio] 0.6 {ratio} Normal [facility] Comment on above: Performed By: #### B HAND FABRIC CUTTER, CMP ####[facility] [address] [address]Dr. Kasia Nath ALP [Catalytic activity/Vol] 94 U/L Normal 46-116 [facility] Comment on above: Performed By: #### B HAND FABRIC CUTTER, CMP ####[facility] [address] [id number]. Kasia Nath ALT [Catalytic activity/Vol] 16 U/L Normal 14-59 [facility] Comment on above: Performed By: #### B HAND FABRIC CUTTER, CMP ####[facility] [address] [id number]. Kasia Nath Anion gap [Moles/Vol] 10.6 mmol/L Normal [facility] Comment on above: Performed By: #### B HAND FABRIC CUTTER, CMP ####[facility] [address] [address]Dr. Kasia Nath AST [Catalytic activity/Vol] 15 U/L Normal 15-37 [facility] Comment on above: Performed By: #### B HAND FABRIC CUTTER, CMP ####[facility] [address] [place], [place] [id number]. Kasia Nath Bilirubin [Mass/Vol] 0.8 mg/dL Normal 0.2-1.0 [facility] Comment on above: Performed By: #### B HAND FABRIC CUTTER, CMP ####[facility] [address] [place], [place] [address]Dr. Kasia Nath Calcium [Mass/Vol] 8.5 mg/dL Normal 8.5-10.1 [facility] Comment on above: Performed By: #### B HAND FABRIC CUTTER, CMP ####[facility] [address] [place], [place] [address]Dr. Kasia Nath Chloride [Moles/Vol] 102 mmol/L Normal 98-107 [facility] Comment on above: Performed By: #### B HAND FABRIC CUTTER, CMP ####[facility] [address] [place], [place] [address]Dr. Kasia Nath CO2 [Moles/Vol] 30.2 mmol/L Normal 21.0-32.0 [facility] Comment on above: Performed By: #### B HAND FABRIC CUTTER, CMP ####[facility] [address] [place], [place] [address]Dr. Kasia Nath Creatinine [Mass/Vol] 0.94 mg/dL Normal 0.55-1.02 [facility] Comment on above: Performed By: #### B HAND FABRIC CUTTER, CMP ####[facility] [address] [place], [place] [address]Dr. Kasia Nath EGFR-AF YEMENI >60 Normal >=60 [facility] Comment on above: Performed By: #### B HAND FABRIC CUTTER, CMP ####[facility] [address] [place], [place] [address]Dr. Kasia Portillo EGFR-NON AF YEMENI 58 mL/min/1.73m2 Critically low >=60 [facility] Comment on above: Performed By: #### B HAND FABRIC CUTTER, CMP ####[facility] [address] [address]Dr. Kasia Nath Globulin (S) [Mass/Vol] 4.0 g/dL Normal [facility] Comment on above: Performed By: #### B HAND FABRIC CUTTER, CMP ####[facility] [address] [place], [place] [address]Dr. Fartuncristy Portillo Glucose [Mass/Vol] 150 mg/dL Critically high 74-106 [facility] Comment on above: Performed By: #### B HAND FABRIC CUTTER, CMP ####[facility] [address] [place], [place] [address]Dr. Fartuncristy Portillo Potassium [Moles/Vol] 3.8 mmol/L Normal 3.5-5.1 [facility] Comment on above: Performed By: #### B HAND FABRIC CUTTER, CMP ####[facility] [address] [place], [place] [address]Dr. Fartuncristy Nath Protein [Mass/Vol] 6.6 g/dL Normal 6.4-8.2 [facility] Comment on above: Performed By: #### B HAND FABRIC CUTTER, CMP ####[facility] [address] [place], [place] [address]Dr. Fartuncristy Portillo Sodium [Moles/Vol] 139 mmol/L Normal 136-145 [facility] Comment on above: Performed By: #### B HAND FABRIC CUTTER, CMP ####[facility] [address] [place], [place] [address]Dr. Fartuncristy Portillo Urea nitrogen [Mass/Vol] 24.0 mg/dL Critically high 7.0-18.0 [facility] Comment on above: Performed By: #### B HAND FABRIC CUTTER, CMP ####[facility] [address] [place], [place] [address]Dr. Fartuncristy Portillo Urea nitrogen/Creatinine [Mass ratio] 25.5 mg/mg Normal [facility] Comment on above: Performed By: #### B HAND FABRIC CUTTER, CMP ####[facility] [address] [place], [place] [address]Dr. Kasia Nath BNPon 01-01-2023 Natriuretic peptide B (Bld) [Mass/Vol] 1419.0 pg/mL Normal <=1,800.0 [facility] Comment on above: Performed By: #### B HAND FABRIC CUTTER #### [facility] [address] [place] [address] Dr. Kasia Nath CARDIAC EMERY 3-6on 3 CK [Catalytic activity/Vol] 80 U/L Normal 26-192 [facility] Comment on above: Performed By: #### P OCGLUC #### [facility] [address] [place] [address] Dr. Kasia Nath CK.MB [Mass/Vol] 1.85 ng/mL Normal <=3.60 [facility] Comment on above: Performed By: #### P OCGLUC #### [facility] [address] [place] [address] Dr. Kasia Nath HSTROP 13.2 pg/mL Normal 4.0-51.3 [facility] Comment on above: Result Comment: CUT- OFF POINTS HAVE BEEN ESTABLISHED BASED ON THE FOURTH UNIVERSAL DEFINITIONS OF MYOCARDIAL INFARCTION. THE UPPER REFERENCE LIMIT (URL) OF TROPONIN, DEFINED THE 99TH PERCENTILE OF cTnI DISTRIBUTION IN A REFERENCE POPULATION, HAS BEEN CONFIRMED THE DECISION THRESHOLD FOR [place] DIAGNOSIS. Performed By: #### P OCGLUC #### [facility] [address] [place] [address] Dr. Kasia Nath CK [Catalytic activity/Vol] 73 U/L Normal 26-192 [facility] Comment on above: Performed By: #### P OCGLUC #### [facility] [address] [place] [address] Dr. Kasia Nath CK.MB [Mass/Vol] 1.71 ng/mL Normal <=3.60 [facility] Comment on above: Performed By: #### P OCGLUC #### [facility] [address] [place] [address] Dr. Kasia Nath HSTROP 13.6 pg/mL Normal 4.0-51.3 [facility] Comment on above: Result Comment: CUT- OFF POINTS HAVE BEEN ESTABLISHED BASED ON THE FOURTH UNIVERSAL DEFINITIONS OF MYOCARDIAL INFARCTION. THE UPPER REFERENCE LIMIT (URL) OF TROPONIN, DEFINED THE 99TH PERCENTILE OF cTnI DISTRIBUTION IN A REFERENCE POPULATION, HAS BEEN CONFIRMED THE DECISION THRESHOLD FOR [place] DIAGNOSIS. Performed By: #### P OCGLUC #### [facility] [address] [place] [address] Dr. Kasia Nath CARDIAC EMERY ADMITon 023 CK [Catalytic activity/Vol] 71 U/L Normal 26-192 [facility] Comment on above: Performed By: #### C BC #### [facility] [address] [place] [address] Dr. Kasia Nath CK.MB [Mass/Vol] 1.69 ng/mL Normal <=3.60 [facility] Comment on above: Performed By: #### C BC #### [facility] [address] [place] [address] Dr. Kasia Nath HSTROP 13.0 pg/mL Normal 4.0-51.3 [facility] Comment on above: Result Comment: CUT- OFF POINTS HAVE BEEN ESTABLISHED BASED ON THE FOURTH UNIVERSAL DEFINITIONS OF MYOCARDIAL INFARCTION. THE UPPER REFERENCE LIMIT (URL) OF TROPONIN, DEFINED THE 99TH PERCENTILE OF cTnI DISTRIBUTION IN A REFERENCE POPULATION, HAS BEEN CONFIRMED THE DECISION THRESHOLD FOR [place] DIAGNOSIS. Performed By: #### C BC #### [facility] [address] [place] [address] Dr. Kasia Nath GRETTA 75 ng/mL Normal 9-82 [facility] Comment on above: Performed By: #### C BC #### [facility] [address] [place] [address] Dr. Kasia Nath CBC AUTO DIFFon 01-01-2023 BASO # 0.1 103/ul Normal 0.0-0.1 [facility] Comment on above: Performed By: #### C BC #### [facility] [address] [place] [address] Dr. Kasia Nath Basophils/100 WBC (Bld) 1.1 % Normal 0.2-2.0 [facility] Comment on above: Performed By: #### C BC #### [facility] [address] [place] [address] Dr. Kasia Nath EO # 0.2 103/ul Normal 0.0-0.7 [facility] Comment on above: Performed By: #### C BC #### [facility] [address] [place] [address] Dr. Kasia Nath Eosinophils/100 WBC (Bld) 2.9 % Normal 0.9-7.0 [facility] Comment on above: Performed By: #### C BC #### [facility] [address] [place] [address] Dr. Kasia Nath Erythrocyte distribution width (RBC) [Ratio] 13.8 % Normal 11.0-15.0 [facility] Comment on above: Performed By: #### C BC #### [facility] [address] [place] [address] Dr. Kasia Nath Hematocrit (Bld) [Volume fraction] 36.2 % Normal 36.0-48.0 [facility] Comment on above: Performed By: #### C BC #### [facility] [facility] [address] [place] [address] Dr. Kasia Nath Hemoglobin (Bld) [Mass/Vol] 12.1 g/dL Normal 12.0-16.0 [facility] Comment on above: Performed By: #### C BC #### [facility] [address] [place] [address] Dr. Kasia Nath IG # 0.02 10e3/ul Normal 0.00-0.03 [facility] Comment on above: Performed By: #### C BC #### [facility] [address] [place] [address] Dr. Kasia Nath IG % 0.3 % Normal 0.0-0.5 [facility] Comment on above: Performed By: #### C BC #### [facility] [address] [place] [address] Dr. Kasia Nath LYMPH # 1.5 103/ul Normal 1.2-3.8 [facility] Comment on above: Performed By: #### C BC #### [facility] [address] [place] [address] Dr. Kasia Nath Lymphocytes/100 WBC (Bld) 19.9 % Critically low 20.5-60.0 [facility] Comment on above: Performed By: #### C BC #### [facility] [address] [place] [address] Dr. Kasia Nath MANUAL DIFF REQ NO Normal [facility] Comment on above: Performed By: #### C BC #### [facility] [address] [place] [address] Dr. Kasia Nath MCH (RBC) [Entitic mass] 29.7 pg Normal 26.7-34.0 [facility] Comment on above: Performed By: #### C BC #### [facility] [address] [place] [address] Dr. Kasia Nath MCHC (RBC) [Mass/Vol] 33.4 g/dL Normal 29.9-35.2 [facility] Comment on above: Performed By: #### C BC #### [facility] [address] [place] [address] Dr. Kasia Nath MCV (RBC) [Entitic vol] 88.9 fL Normal 81.0-99.0 [facility] Comment on above: Performed By: #### C BC #### [facility] [address] [place] [address] Dr. Kasia Nath MONO # 0.6 103/ul Normal 0.3-0.8 [facility] Comment on above: Performed By: #### C BC #### [facility] [address] [place] [address] Dr. Kasia Nath Monocytes/100 WBC (Bld) 8.0 % Normal 1.7-12.0 [facility] Comment on above: Performed By: #### C BC #### [facility] [address] [place] [address] Dr. Kasia Nath NEUT # 5.1 103/ul Normal 1.4-6.5 [facility] Comment on above: Performed By: #### C BC #### [facility] [address] [place] [address] Dr. Kasia Nath Neutrophils/100 WBC (Bld) 67.8 % Normal 43.0-75.0 [facility] Comment on above: Performed By: #### C BC #### [facility] [address] [address] [address] Kasia Nath Platelet mean volume (Bld) [Entitic vol] 10.4 fL Normal 9.5-13.5 [facility] Comment on above: Performed By: #### C BC #### [facility] [address] [address] [address] Kasia Nath PLT 200 103/ul Normal 150-450 [facility] Comment on above: Performed By: #### C BC #### [facility] [address] [address] [address] Kasia Nath RBC 4.07 106/ul Critically low 4.20-5.40 [facility] Comment on above: Performed By: #### C BC #### [facility] [address] [address] [address] Kasia Nath WBC 7.5 103/ul Normal 4.0-11.0 [facility] Comment on above: Performed By: #### C BC #### [facility] [address] CHEST WO CONon [...] two extremes (Agatston score 101-1000). https://pubs.rsna.org /doi/abs/10.1148/radi [email or web address] Electronically authenticated by: RENETTA MICHAELS Date: 2023-01-01 14:55 Normal [facility] Covid-19 PCR (CVDTBH)on 12-14 SARS-CoV-2 (COVID-19) RNA FERN+probe Ql (Unsp spec) Not detected Normal NOT DETECTED [facility] Comment on above: Result Comment: When [...] for this test is supported by the Captain'S Assistant of Health and Human Service's declaration [...] longer be used). Performed By: #### [facility] #### [facility] [address] [address] [address] Kasia Nath ECHO LIMITED STUDYon 023 ECHO LIMITED STUDY Patient: SAIMA CALL Exam Date: 01/01/2023 : 1945 Gender:F Ordering : LD GUERRERO . Admission #: [id number] Family : Order #: [id number] CLICK HERE TO VIEW EXAM ECHOCARDIOGRAM REPORT [...] Kaplan M.D. on 01/01/2023 at 13:19 Normal [facility] GLYCOHEMOGLOBIN A1Con 2022 ADA RECOMMENDATION SEE BELOW Normal [facility] Comment on above: Result Comment: ADA RECOMMENDED LIMIT 4.0 - 6.0 ADA THERAPEUTIC TARGET < 7.0 ACTION SUGGESTED > 7.0 Performed By: #### P OCGLUC #### [facility] [address] [address] [address] Kasia Nath Glucose [Mass/Vol] 318 mg/dL Normal [facility] Comment on above: Performed By: #### P OCGLUC #### [facility] [address] [address] [address] Kasia Nath HbA1c (Bld) [Mass fraction] 12.7 % Critically high 4.5-6.2 [facility] Comment on above: Performed By: #### P OCGLUC #### [facility] [address] [address] [address] Kasia Nath POINT OF CARE GLUCOSEon 12-14 Glucose [Mass/Vol] 162 mg/dL Critically high 74-106 [facility] Comment on above: Performed By: #### P OCGLUC ####[facility] [id number] [address]Dr. Kasia Nath Glucose [Mass/Vol] 213 mg/dL Critically high 74-106 [facility] Comment on above: Performed By: #### P OCGLUC ####[facility] [id number] [address]Dr. Kasia Nath Glucose [Mass/Vol] 248 mg/dL Critically high 74-106 [facility] Comment on above: Performed By: #### P OCGLUC #### [facility] [address] [address] [address] Kasia Nath PROF CHEM 8 (BAS METB)on Anion gap [Moles/Vol] 11.8 mmol/L Normal [facility] Comment on above: Performed By: #### C BC #### [facility] [address] [address] [address] Kasia Nath Calcium [Mass/Vol] 8.4 mg/dL Critically low 8.5-10.1 [facility] Comment on above: Performed By: #### C BC #### [facility] [address] [address] [address] Kasia Nath Chloride [Moles/Vol] 102 mmol/L Normal 98-107 [facility] Comment on above: Performed By: #### C BC #### [facility] [address] [address] [address] Kasia Nath CO2 [Moles/Vol] 28.4 mmol/L Normal 21.0-32.0 [facility] Comment on above: Performed By: #### C BC #### [facility] [address] [address] [address] Kasia Nath Creatinine [Mass/Vol] 1.09 mg/dL Critically high 0.55-1.02 [facility] Comment on above: Performed By: #### C BC #### [facility] [address] [address] [address] Kasia Nath EGFR-AF YEMENI 59 mL/min/1.73m2 Critically low >=60 [facility] Comment on above: Performed By: #### C BC #### [facility] [address] [address] [address] Kasia Nath EGFR-NON AF YEMENI 49 mL/min/1.73m2 Critically low >=60 [facility] Comment on above: Performed By: #### C BC #### [facility] [address] [address] [address] Kasia Nath Glucose [Mass/Vol] 247 mg/dL Critically high 74-106 [facility] Comment on above: Performed By: #### C BC #### [facility] [address] [address] [address] Kasia Nath Potassium [Moles/Vol] 4.2 mmol/L Normal 3.5-5.1 [facility] Comment on above: Performed By: #### C BC #### [facility] [address] [address] [address] Kasia Nath Sodium [Moles/Vol] 138 mmol/L Normal 136-145 [facility] Comment on above: Performed By: #### C BC #### [facility] [address] [address] [address] Kasia Nath Urea nitrogen [Mass/Vol] 28.0 mg/dL Critically high 7.0-18.0 [facility] Comment on above: Performed By: #### C BC #### [facility] [address] [place], [place] [address] Dr. Kasia Nath Urea nitrogen/Creatinine [Mass ratio] 25.7 mg/mg Normal [facility] Comment on above: Performed By: #### C BC #### [facility] [address] [place], [place] [address] Dr. Kasia Nath XR CHEST 1 Von [...] by: Miranda ALVAREZ Date: 2023-01-01 05:38 Normal [facility] ECHOCARDIO M/2D COMPLETEon 1 11-15-2021 ECHOCARDIO M/2D COMPLETE Patient: JOE CALL Exam Date: 09/15/2022 : 1945 Gender:F Ordering : YAMEL MCCRACKEN [facility] Admission #: [id number] Family : DR SHANTEL STEVEN M.D. Order #: [id number] CLICK HERE TO VIEW EXAM ECHOCARDIOGRAM REPORT [...] on 09/15/2022 at 18:17 Normal [facility] GI PANEL (PCR)on 05-02-2022 Adenovirus F 40/41 Not detected Normal NOT DETECTED [facility] Comment on above: Performed By: #### P OCGLUC #### [facility] [address] [place] [address] Dr. Kasia Nath Astrovirus Not detected Normal NOT DETECTED [facility] Comment on above: Performed By: #### P OCGLUC #### [facility] [address] [place] [address] Dr. Kasia Nath C. Diff toxin A/B Not detected Normal NOT DETECTED [facility] Comment on above: Performed By: #### P OCGLUC #### [facility] [address] [place] [address] Dr. Kasia Nath Campylobacter Not detected Normal NOT DETECTED [facility] Comment on above: Performed By: #### P OCGLUC #### [facility] [address] [place] [address] Dr. Kasia Nath Cryptosporidium Not detected Normal NOT DETECTED [facility] Comment on above: Performed By: #### P OCGLUC #### [facility] [address] [place] [address] Dr. Kasia Nath Cyclos. Cayetanensis Not detected Normal NOT DETECTED [facility] Comment on above: Performed By: #### P OCGLUC #### [facility] [address] [place] [address] Dr. Kasia Nath E. Coli O157 Not Applicable Normal Not Applicable [facility] Comment on above: Performed By: #### P OCGLUC #### [facility] [address] [place] [address] Dr. Kasia Nath E. histolytica Not detected Normal NOT DETECTED [facility] Comment on above: Performed By: #### P OCGLUC #### [facility] [address] [address] [address] Kasia Nath EAEC Not detected Normal NOT DETECTED [facility] Comment on above: Performed By: #### P OCGLUC #### [facility] [address] [place] [address] Dr. Kasia Nath EIEC Not detected Normal NOT DETECTED [facility] Comment on above: Performed By: #### P OCGLUC #### [facility] [address] [place] [address] Dr. Kasia Nath EPEC Detected Abnormal NOT DETECTED [facility] Comment on above: Performed By: #### P OCGLUC #### [facility] [address] [place] [address] Dr. Kasia Nath ETEC Not detected Normal NOT DETECTED [facility] Comment on above: Performed By: #### P OCGLUC #### [facility] [address] [place] [address] Dr. Kasia Nath G. Lamblia Not detected Normal NOT DETECTED [facility] Comment on above: Performed By: #### P OCGLUC #### [facility] [address] [place] [address] Dr. Kasia KHAN CONTROLS PASSED Normal [facility] Comment on above: Performed By: #### P OCGLUC #### [facility] [address] [place] [address] Dr. Kasia THOMPSON JUNO HEADER GI PANEL BACTERIA Normal [facility] Comment on above: Performed By: #### P OCGLUC #### [facility] [address] [place] [address] Dr. Kasia THOMPSONHD ECOLI GI PANEL DIARRHEAGENIC E.COLI / SHIGELLA Normal [facility] Comment on above: Performed By: #### P OCGLUC #### [facility] [address] [place] [address] Dr. Kasia GE INFO SEE BELOW Normal [facility] Comment on above: Result Comment: EAEC - Enteroaggregative E. Coli EPEC- Enteropathogenic E. Coli ETEC- Enterotoxigenic E. Coli lt/st STEC- Shigella-like toxin-producing E. Coli stx1/stx2 EIEC- Shigella/Enteroinvasive E. Coli Performed By: #### P OCGLUC #### [facility] [address] [place] [address] Dr. Kasia GE PARASITES GI PANEL PARASITES Normal [facility] Comment on above: Performed By: #### P OCGLUC #### [facility] [address] [address] [address] Kasia GE VIRUS GI PANEL VIRUSES Normal [facility] Comment on above: Performed By: #### P OCGLUC #### [facility] [address] [place] [address] Dr. Kasia Nath Norovirus GI/GII Not detected Normal NOT DETECTED [facility] Comment on above: Performed By: #### P OCGLUC #### [facility] [address] [place] [address] Dr. Kasia Nath P. Shigelloides Not detected Normal NOT DETECTED [facility] Comment on above: Performed By: #### P OCGLUC #### [facility] [address] [place] [address] Dr. Kasia Nath Rotavirus A Not detected Normal NOT DETECTED [facility] Comment on above: Performed By: #### P OCGLUC #### [facility] [address] [place] [address] Dr. Kasia Nath Salmonella Not detected Normal NOT DETECTED [facility] Comment on above: Performed By: #### P OCGLUC #### [facility] [address] [place] [address] Dr. Kasia Nath Sapovirus Not detected Normal NOT DETECTED [facility] Comment on above: Performed By: #### P OCGLUC #### [facility] [address] [address] [address] Kasia Nath STEC Not detected Normal NOT DETECTED [facility] Comment on above: Performed By: #### P OCGLUC #### [facility] [address] [address] [address] Kasia Nath Vibrio Not detected Normal NOT DETECTED [facility] Comment on above: Performed By: #### P OCGLUC #### [facility] [address] [address] [address] Kasia Nath Vibrio Cholera Not detected Normal NOT DETECTED [facility] Comment on above: Performed By: #### P OCGLUC #### [facility] [address] [address] [address] Kasia Nath Y. Enterocolitica Not detected Normal NOT DETECTED [facility] Comment on above: Performed By: #### P OCGLUC #### [facility] [address] [address] [address] Kasia Nath OCC BLD IMMUNO SCREENon 04-13 OCCULT BLOOD Negative Normal NEGATIVE [facility] Comment on above: Performed By: #### C BC #### [facility] [address] [address] [address] aKsia Nath XR knee BI 4Von 08-25-2021 XR knee BI 4V [facility] [employer] Other XR knee BI 4V [facility] [employer] Other XR knee BI 4V [address] [place] [address] [employer] Other XR knee BI 4V [address] [employer] Other XR knee BI 4V XRay Report [employer] Other XR knee BI 4V Signed [employer] Other XR knee BI 4V Patient: Joe Call MR#: [id number] [facility] [employer] Other XR knee BI 4V 0 [place] [employer] Other XR knee BI 4V : 1945 Acct:[id number] [place] [employer] Other XR knee BI 4V Age/Sex: 76 / F ADM Date: 08/25/21 [employer] Other XR knee BI 4V Loc: [facility] Room: Type : [facility] [employer] Other XR knee BI 4V Attending Dr: Akbar Cui II, MD [employer] Other XR knee BI 4V Ordering Provider: Akbar Cui MD [employer] Other XR knee BI 4V Date of Service: 08/25/21 [employer] Other XR knee BI 4V XR/XR knee BI 4V: Pain in right knee;Pain in left knee [employer] Other XR knee BI 4V Copies to: Akbar Cui MD [employer] Other XR knee BI 4V XR knee BI 4V 08/25/2021 1:32 PM [employer] Other XR knee BI 4V SIGNS AND SYMPTOMS: Bilateral knee pain with decreased range of motion, weakness [employer] Other XR knee BI 4V PROTOCOL: Frontal, lateral, and sunrise views of the bilateral knees [employer] Other XR knee BI 4V COMPARISON: None [employer] Other XR knee BI 4V FINDINGS: [employer] Other XR knee BI 4V There is mild narrowing of the medial weightbearing joint spaces. There is mild patellofemoral [employer] Other XR knee BI 4V joint space loss. There is spurring of the poles of the patella bilaterally. There is mild lateral [employer] Other XR knee BI 4V patellar subluxation bilaterally. There is no evidence of acute displaced fracture. Well-corticated [employer] Other XR knee BI 4V ossific structures o r separate from the right medial weightbearing joint space. This may represent a [employer] Other XR knee BI 4V calcified loose bodies. [employer] Other XR knee BI 4V XR/XR knee BI 4V [employer] Other XR knee BI 4V IMPRESSION: [employer] Other XR knee BI 4V Degenerative changes are noted are noted bilaterally, as above. [employer] Other XR knee BI 4V Well-corticated ossific structures or separate from the right medial weightbearing joint space. This [employer] Other XR knee BI 4V may represent a calcified loose bodies. [employer] Other XR knee BI 4V No acute displaced fracture. [employer] Other XR knee BI 4V There is mild latera l subluxation of the patella within the patellofemoral joint space bilaterally. [employer] Other XR knee BI 4V Impression dictated by: Emery Lobo M.D.08/25/2021 2:51 PM [employer] Other XR knee BI 4V Dictation Location: [place] [address] [employer] Other XR knee BI 4V Transcribed By: RAFAEL 08/25/21 [facility] [employer] Other XR knee BI 4V Dictated By: Emery Lobo II, MD 08/25/21 [facility] [employer] Other XR knee BI 4V Signed By: [employer] Other XR knee BI 4V 08/25/21 [facility] [employer] Other XR pelvis 1-2Von 08-25-2021 XR pelvis 1-2V XR/XR pelvis 1-2V: Pain in right knee;Pain in left knee [employer] Other XR pelvis 1-2V XR pelvis 1-2V 08/25/2021 1:32 PM [employer] Other XR pelvis 1-2V SIGNS AND SYMPTOMS: Bilateral generalized knee pain, limited range of motion with weakness [employer] Other XR pelvis 1-2V PROTOCOL: Frontal radiograph of the pelvis [employer] Other XR pelvis 1-2V There is mild narrowing of the weightbearing joint spaces. Mild degenerative changes are noted in [employer] Other XR pelvis 1-2V the symphysis pubis. There is no evidence of fracture or dislocation. Vascular calcifications are [employer] Other XR pelvis 1-2V present in the pelvis. [employer] Other XR pelvis 1-2V XR/XR pelvis 1-2V [employer] Other XR pelvis 1-2V No fracture or dislocation. [employer] Other XR pelvis 1-2V Mild degenerative changes are noted in the joint space of the hips. [employer] Other XR pelvis 1-2V Impression dictated by: Emery Lobo M.D.08/25/2021 2:54 PM [employer] Other XR pelvis 1-2V Transcribed By: PWS 08/25/21 [facility] [employer] Other XR pelvis 1-2V Dictated By: Emery Lobo II, MD 08/25/21 [facility] [employer] Other XR pelvis 1-2V 08/25/21 [facility] [employer] Other Vital Signs Date Time Vital Sign Value Performing Clinician Facility 08-07-2024 10:04-0400 Body height 165.1 cm MD Shantel Steven Work Phone: [facility] 08-07-2024 10:04-0400 Body mass index (BMI) [Ratio] 43.1 kg/m2 MD Shantel Steven Work Phone: [facility] 08-07-2024 10:04-0400 Body weight 117.48 kg MD Shantel Steven Work Phone: [facility] 08-07-2024 10:04-0400 Diastolic blood pressure 69 mm[Hg] MD Shantel Steven Work Phone: [facility] 08-07-2024 10:04-0400 Heart rate 52 /min MD Shantel Steven Work Phone: [facility] 08-07-2024 10:04-0400 SaO2% (BldA) [Mass fraction] 93 % MD Shantel Steven Work Phone: [facility] 08-07-2024 10:04-0400 Systolic blood pressure 117 mm[Hg] MD Shantel Steven Work Phone: [facility] 07-16-2024 10:20-0400 Body height 165.1 cm MD Shantel Steven Work Phone: [facility] 07-16-2024 10:20-0400 Body mass index (BMI) [Ratio] 43.1 kg/m2 MD Shantel Steven Work Phone: [facility] 07-16-2024 10:20-0400 Body weight 117.48 kg MD Shantel Steven Work Phone: [facility] 07-16-2024 10:20-0400 Diastolic blood pressure 80 mm[Hg] MD Shantel Steven Work Phone: [facility] 07-16-2024 10:20-0400 Heart rate 60 /min MD Shantel Steven Work Phone: [facility] 07-16-2024 10:20-0400 Systolic blood pressure 151 mm[Hg] MD Shantel Steven Work Phone: [facility] 07-07-2024 11:41-0400 Body height 165.1 cm MD Shantel Steven Work Phone: [facility] 07-07-2024 11:41-0400 Body mass index (BMI) [Ratio] 42.4 kg/m2 MD Shantel Steven Work Phone: [facility] 07-07-2024 11:41-0400 Body weight 115.66 kg MD Shantel Steven Work Phone: [facility] 07-07-2024 11:41-0400 Diastolic blood pressure 79 mm[Hg] MD Shantel Steven Work Phone: [facility] 07-07-2024 11:41-0400 Heart rate 66 /min MD Shantel Steven Work Phone: [facility] 07-07-2024 11:41-0400 Systolic blood pressure 132 mm[Hg] MD Shantel Steven Work Phone: [facility] 06-16-2024 13:08-0400 Body height 165.1 cm MD Shantel Steven Work Phone: [facility] 06-16-2024 13:08-0400 Body mass index (BMI) [Ratio] 41.9 kg/m2 MD Shantel Steven Work Phone: [facility] 06-16-2024 13:08-0400 Body weight 114.3 kg MD Shantel Steven Work Phone: [facility] 06-16-2024 13:08-0400 Diastolic blood pressure 73 mm[Hg] MD Shantel Steven Work Phone: [facility] 06-16-2024 13:08-0400 Heart rate 55 /min MD Shantel Steven Work Phone: [facility] 06-16-2024 13:08-0400 Systolic blood pressure 137 mm[Hg] MD Shantel Steven Work Phone: [facility] 06-05-2024 11:51-0400 Body height 165.1 cm MD Shantel Steven Work Phone: [facility] 06-05-2024 11:51-0400 Body mass index (BMI) [Ratio] 43.2 kg/m2 MD Shantel Steven Work Phone: [facility] 06-05-2024 11:51-0400 Body temperature 96.6 [degF] MD Shantel Steven Work Phone: [facility] 06-05-2024 11:51-0400 Body weight 117.7 kg MD Shantel Steven Work Phone: [facility] 06-05-2024 11:51-0400 Diastolic blood pressure 74 mm[Hg] MD Shantel Steven Work Phone: [facility] 06-05-2024 11:51-0400 Heart rate 63 /min MD Shantel Steven Work Phone: [facility] 06-05-2024 11:51-0400 Respiratory rate 18 /min MD Shantel Steven Work Phone: [facility] 06-05-2024 11:51-0400 SaO2% (BldA) [Mass fraction] 97 % MD Shantel Steven Work Phone: [facility] 06-05-2024 11:51-0400 Systolic blood pressure 138 mm[Hg] MD Shantel Steven Work Phone: [facility] 05-22-2024 09:18-0400 Heart rate 55 /min MD Shantel Steven Work Phone: [facility] 05-22-2024 09:09-0400 Body temperature 97.8 [degF] MD Shantel Steven Work Phone: [facility] 05-22-2024 09:09-0400 Diastolic blood pressure 64 mm[Hg] MD Shantel Steven Work Phone: [facility] 05-22-2024 09:09-0400 Respiratory rate 22 /min MD Shantel Steven Work Phone: [facility] 05-22-2024 09:09-0400 SaO2% (BldA) [Mass fraction] 94 % MD Shantel Steven Work Phone: [facility] 05-22-2024 09:09-0400 Systolic blood pressure 140 mm[Hg] MD Shantel Steven Work Phone: [facility] 05-22-2024 09:08-0400 Body height 165.1 cm MD Shantel Steven Work Phone: [facility] 05-22-2024 09:08-0400 Body weight 117.48 kg MD Shantel Steven Work Phone: [facility] 05-19-2024 14:16-0400 Body height 165.1 cm MD Shantel Steven Work Phone: [facility] 05-19-2024 14:16-0400 Body mass index (BMI) [Ratio] 43.1 kg/m2 MD Shantel Steven Work Phone: [facility] 05-19-2024 14:16-0400 Body weight 117.48 kg MD Shantel Steven Work Phone: [facility] 05-19-2024 14:16-0400 Diastolic blood pressure 72 mm[Hg] MD Shantel Steven Work Phone: [facility] 05-19-2024 14:16-0400 Heart rate 56 /min MD Shantel Steven Work Phone: [facility] 05-19-2024 14:16-0400 Systolic blood pressure 133 mm[Hg] MD Shantel Steven Work Phone: [facility] 05-07-2024 11:52-0400 Body height 165.1 cm MD Shantel Steven Work Phone: [facility] 05-07-2024 11:52-0400 Body mass index (BMI) [Ratio] 41.5 kg/m2 MD Shantel Steven Work Phone: [facility] 05-07-2024 11:52-0400 Body temperature 98.5 [degF] MD Shantel Steven Work Phone: [facility] 05-07-2024 11:52-0400 Body weight 113.39 kg MD Shantel Steven Work Phone: [facility] 05-07-2024 11:52-0400 Diastolic blood pressure 81 mm[Hg] MD Shantel Steven Work Phone: [facility] 05-07-2024 11:52-0400 Heart rate 91 /min MD Shantel Steven Work Phone: [facility] 05-07-2024 11:52-0400 Systolic blood pressure 141 mm[Hg] MD Shantel Steven Work Phone: [facility] 04-29-2024 12:54-0400 Body height 165.1 cm MD Shantel Steven Work Phone: [facility] 04-29-2024 12:54-0400 Body mass index (BMI) [Ratio] 41.5 kg/m2 MD Shantel Steven Work Phone: [facility] 04-29-2024 12:54-0400 Body weight 113.39 kg MD Shantel Steven Work Phone: [facility] 04-29-2024 12:54-0400 Diastolic blood pressure 58 mm[Hg] MD Shantel Steven Work Phone: [facility] 04-29-2024 12:54-0400 Heart rate 54 /min MD Shantel Steven Work Phone: [facility] 04-29-2024 12:54-0400 Systolic blood pressure 90 mm[Hg] MD Shantel Steven Work Phone: [facility] 04-03-2024 11:29-0400 Body height 165.1 cm MD Shantel Steven Work Phone: [facility] 04-03-2024 11:29-0400 Body mass index (BMI) [Ratio] 43.7 kg/m2 MD Shantel Steven Work Phone: [facility] 04-03-2024 11:29-0400 Body weight 119.29 kg MD Shantel Steven Work Phone: [facility] 04-03-2024 11:29-0400 Diastolic blood pressure 71 mm[Hg] MD Shantel Steven Work Phone: [facility] 04-03-2024 11:29-0400 Heart rate 56 /min MD Shantel Steven Work Phone: [facility] 04-03-2024 11:29-0400 Systolic blood pressure 116 mm[Hg] MD Shantel Steven Work Phone: [facility] 03-25-2024 15:15-0400 Body height 165.1 cm MD Shantel Steven Work Phone: [facility] 03-25-2024 15:15-0400 Body mass index (BMI) [Ratio] 43.9 kg/m2 MD Shantel Steven Work Phone: [facility] 03-25-2024 15:15-0400 Body weight 119.74 kg MD Shantel Steven Work Phone: [facility] 03-25-2024 15:15-0400 Diastolic blood pressure 87 mm[Hg] MD Shantel Steven Work Phone: [facility] 03-25-2024 15:15-0400 Heart rate 66 /min MD Shantel Steven Work Phone: [facility] 03-25-2024 15:15-0400 Systolic blood pressure 125 mm[Hg] MD Shantel Steven Work Phone: [facility] 02-15-2024 14:18-0400 Body height 165.1 cm [facility] 02-15-2024 14:18-0400 Body mass index (BMI) [Ratio] 38.6 kg/m2 [facility] 02-15-2024 14:18-0400 Body weight 105.23 kg [facility] 02-15-2024 14:18-0400 Diastolic blood pressure 66 mm[Hg] [facility] 02-15-2024 14:18-0400 Heart rate 55 /min [facility] 02-15-2024 14:18-0400 Systolic blood pressure 114 mm[Hg] [facility] 01-18-2024 10:23-0500 Body height 165.1 cm [facility] 01-18-2024 10:23-0500 Body mass index (BMI) [Ratio] 43.2 kg/m2 [facility] 01-18-2024 10:23-0500 Body weight 117.93 kg [facility] 01-18-2024 10:23-0500 Diastolic blood pressure 70 mm[Hg] [facility] 01-18-2024 10:23-0500 Heart rate 98 /min [facility] 01-18-2024 10:23-0500 SaO2% (BldA) [Mass fraction] 65 % [facility] 01-18-2024 10:23-0500 Systolic blood pressure 110 mm[Hg] [facility] 10-23-2023 16:00-0500 Body height 165.1 cm Jaleesa Six3loves Other [facility] [employer] Other 10-23-2023 16:00-0500 Body mass index (BMI) [Ratio] 44.63 kg/m2 Azghassan Six3hous Other [facility] [employer] Other 10-23-2023 16:00-0500 Body temperature 96.8 [degF] Azghassan Six3hous Other [employer] Other 10-23-2023 16:00-0500 Body weight 121.66 kg Aziz Six3hous Other [employer] Other 10-23-2023 16:00-0500 Diastolic blood pressure 60 mm[Hg] Aziz Bakhous Other [employer] Other 10-23-2023 16:00-0500 Respiratory rate 18 /min Aziz Bakhous Other [employer] Other 10-23-2023 16:00-0500 SaO2% (BldA) [Mass fraction] 99 % Jaleesa Vanessa Other [employer] Other 10-23-2023 16:00-0500 Systolic blood pressure 124 mm[Hg] Jaleesa Vanessa Other [employer] Other 10-18-2023 13:45-0500 Body height 165.1 cm Shantel Steven Other [employer] Other 10-18-2023 13:45-0500 Body mass index (BMI) [Ratio] 44.86 kg/m2 Shantel Steven Other [employer] Other 10-18-2023 13:45-0500 Body temperature 97.3 [degF] Shantel Steven Other [employer] Other 10-18-2023 13:45-0500 Body weight 122.29 kg Shantel Steven Other [employer] Other 10-18-2023 13:45-0500 Diastolic blood pressure 84 mm[Hg] Shantel Steven Other [employer] Other 10-18-2023 13:45-0500 SaO2% (BldA) [Mass fraction] 97 % Shantel Steven Other [employer] Other 10-18-2023 13:45-0500 Systolic blood pressure 132 mm[Hg] Shantel Steven Other [employer] Other 09-04-2023 14:00-0400 Body height 165.1 cm hSantel Steven Other [employer] Other 09-04-2023 14:00-0400 Body mass index (BMI) [Ratio] 43.06 kg/m2 Shantel Steven Other [employer] Other 09-04-2023 14:00-0400 Body weight 117.39 kg Shantel Steven Other [employer] Other 09-04-2023 14:00-0400 Diastolic blood pressure 69 mm[Hg] Shantel Steven Other [employer] Other 09-04-2023 14:00-0400 Systolic blood pressure 127 mm[Hg] Shantel Steven Other [employer] Other 07-17-2023 10:00-0400 Body height 165.1 cm Shantel Steven Other [employer] Other 07-17-2023 10:00-0400 Body mass index (BMI) [Ratio] 43.03 kg/m2 Shantel Steven Other [employer] Other 07-17-2023 10:00-0400 Body weight 117.3 kg Shantel Steven Other [employer] Other 07-17-2023 10:00-0400 Diastolic blood pressure 76 mm[Hg] Shantel Steven Other [employer] Other 07-17-2023 10:00-0400 Systolic blood pressure 164 mm[Hg] Shantel Steven Other [employer] Other 04-30-2023 14:30-0400 Body height 165.1 cm Shantel Steven Other [employer] Other 04-30-2023 14:30-0400 Body mass index (BMI) [Ratio] 43.43 kg/m2 Shantel Steven Other [employer] Other 04-30-2023 14:30-0400 Body weight 118.39 kg Shantel Steven Other [employer] Other 04-30-2023 14:30-0400 Diastolic blood pressure 75 mm[Hg] Shantel Steven Other [employer] Other 04-30-2023 14:30-0400 Systolic blood pressure 135 mm[Hg] Shantel Steven Other [employer] Other 03-09-2023 12:15-0400 Body height 165.1 cm Shantel Steven Other [employer] Other 03-09-2023 12:15-0400 Body mass index (BMI) [Ratio] 43.59 kg/m2 Shantel Steven Other [employer] Other 03-09-2023 12:15-0400 Body weight 118.84 kg Shantel Steven Other [employer] Other 03-09-2023 12:15-0400 Diastolic blood pressure 82 mm[Hg] Shantel Steven Other [employer] Other 03-09-2023 12:15-0400 SaO2% (BldA) [Mass fraction] 97 % Shantel Steven Other [employer] Other 03-09-2023 12:15-0400 Systolic blood pressure 130 mm[Hg] Shantel Steven Other [employer] Other 02-20-2023 10:00-0400 Body height 165.1 cm Shantel Steven Other [employer] Other 02-20-2023 10:00-0400 Body mass index (BMI) [Ratio] 41.93 kg/m2 Shantel Steven Other [employer] Other 02-20-2023 10:00-0400 Body weight 114.31 kg Shantel Steven Other [employer] Other 02-20-2023 10:00-0400 Diastolic blood pressure 84 mm[Hg] Shantel Steven Other [employer] Other 02-20-2023 10:00-0400 Systolic blood pressure 132 mm[Hg] Shantel Steven Other [employer] Other 08-04-2022 13:33-0400 Blood Pressure Location [facility] [place] 08-04-2022 13:33-0400 Diastolic blood pressure 88 mm[Hg] [facility] [place] 08-04-2022 13:33-0400 Heart rate 76 /min [facility] [place] 08-04-2022 13:33-0400 Respiratory rate 16 /min [facility] [place] 08-04-2022 13:33-0400 Systolic blood pressure 130 mm[Hg] [facility] [place] 08-25-2021 14:30-0400 Body height 165.1 cm Akbar Cui II Other [employer] Other 08-25-2021 14:30-0400 Body mass index (BMI) [Ratio] 43.26 kg/m2 Akbar Cui II Other [employer] Other 08-25-2021 14:30-0400 Body weight 117.94 kg Akbar Cui II Other [facility] [employer] Other Encounters Encounter Date Encounter Type Care Provider Facility Start: 08-20-2024 End: 08-20-2024 ambulatory [facility] Start: 08-07-2024 End: 08-07-2024 ambulatory MD Shantel Steven Work Phone: [facility] Work Phone: Start: 08-07-2024 End: 08-07-2024 Patient encounter procedure MD Shantel Steven Work Phone: [facility] Work Phone: Start: 07-30-2024 Non-patient / Non-visit MD Alessia Steven Work Phone: [facility] Work Phone: Start: 07-25-2024 Non-patient / Non-visit MD Alessia Steven Work Phone: [facility] Work Phone: Start: 07-24-2024 Non-patient / Non-visit MD Alessia Steven Work Phone: [facility] Work Phone: Start: 07-22-2024 End: 07-22-2024 ambulatory CHRISTEL CHACON Not Available Start: 07-17-2024 End: 07-17-2024 Patient encounter procedure MD Shantel Steven Work Phone: [facility] Work Phone: Start: 07-17-2024 End: 07-17-2024 ambulatory MD Shantel Steven Work Phone: [facility] Work Phone: Start: 07-17-2024 End: 07-17-2024 Departed Referred MD Shantel Steven Work Phone: [facility] [place] Work Phone: Start: 07-17-2024 End: 07-17-2024 MD Shantel Steven Work Phone: [facility] Work Phone: Start: 07-16-2024 End: 07-16-2024 ambulatory MD Shantel Steven Work Phone: [facility] Work Phone: Start: 07-16-2024 End: 07-16-2024 Patient encounter procedure MD Shantel Steven Work Phone: [facility] Work Phone: Start: 07-16-2024 End: 07-16-2024 MD Shantel Steven Work Phone: [facility] Work Phone: Start: 07-15-2024 End: 07-15-2024 Non-patient / Non-visit MD Shantel Steven Work Phone: [facility] Work Phone: Start: 07-15-2024 Non-patient / Non-visit MD Alessia Steven Work Phone: [facility] Work Phone: Start: 07-15-2024 MD Shantel painting Work Phone: [facility] Work Phone: Start: 07-14-2024 Non-patient / Non-visit MD Alessia Steven Work Phone: [facility] Work Phone: Start: 07-14-2024 MD Shantel painting Work Phone: [facility] Work Phone: Start: 07-10-2024 End: 07-10-2024 ambulatory TEODORA GARCIA Not Available Start: 07-07-2024 End: 07-07-2024 ambulatory MD Shantel Steven Work Phone: [facility] Work Phone: Start: 07-07-2024 End: 07-07-2024 Patient encounter procedure MD Shantel Steven Work Phone: [facility] Work Phone: Start: 07-07-2024 End: 07-07-2024 MD Shantel Steven Work Phone: [facility] Work Phone: Start: 06-25-2024 ambulatory MD Shantel gray Work Phone: [facility] Work Phone: Start: 06-25-2024 Non-patient / Non-visit MD Alessia Steven Work Phone: [facility] Work Phone: Start: 06-25-2024 MD Shantel painting Work Phone: [facility] Work Phone: Start: 06-24-2024 Non-patient / Non-visit MD Alessia Steven Work Phone: [facility] Work Phone: Start: 06-24-2024 MD Shantel painting Work Phone: [facility] Work Phone: Start: 06-18-2024 End: 06-18-2024 ambulatory [facility] Start: 06-16-2024 End: 06-16-2024 ambulatory MD Shantel Steven Work Phone: [facility] Work Phone: Start: 06-16-2024 End: 06-16-2024 Patient encounter procedure MD Shantel Steven Work Phone: [facility] Work Phone: Start: 06-16-2024 End: 06-16-2024 MD Shantel Steven Work Phone: [facility] Work Phone: Start: 06-10-2024 Non-patient / Non-visit MD Alessia Steven Work Phone: [facility] Work Phone: Start: 06-10-2024 MD Shantel painting Work Phone: [facility] Work Phone: Start: 06-09-2024 Non-patient / Non-visit MD Alessia Steven Work Phone: [facility] Work Phone: Start: 06-09-2024 MD Shantel painting Work Phone: [facility] Work Phone: Start: 06-05-2024 End: 06-05-2024 ambulatory MD Shantel Steven Work Phone: [facility] Work Phone: Start: 06-05-2024 End: 06-05-2024 Patient encounter procedure MD Shantel Steven Work Phone: [facility] Work Phone: Start: 06-05-2024 End: 06-05-2024 MD Shantel Steven Work Phone: [facility] Work Phone: Start: 06-01-2024 Non-patient / Non-visit MD Alessia Steven Work Phone: [facility] Work Phone: Start: 06-01-2024 MD Shantel painting Work Phone: [facility] Work Phone: Start: 05-26-2024 Non-patient / Non-visit MD Alessia Steven Work Phone: [facility] Work Phone: Start: 05-26-2024 MD Shantel painting Work Phone: [facility] Work Phone: Start: 05-22-2024 End: 05-22-2024 Emergency department patient visit MD Shantel Steven Work Phone: [facility] Work Phone: Start: 05-22-2024 End: 05-22-2024 MD Shantel Steven Work Phone: [facility] Work Phone: Start: 05-20-2024 Non-patient / Non-visit MD Alessia Steven Work Phone: [facility] Work Phone: Start: 05-20-2024 MD Shantel painting Work Phone: [facility] Work Phone: Start: 05-20-2024 End: 05-20[facility] Start: 05-19-[facility]24 End: 05-19-2024 ambulatory MD Shantel Steven Work Phone: [facility] Work Phone: Start: 05-19-2024 End: 05-19-2024 Patient encounter procedure MD Shantel Steven Work Phone: [facility] Work Phone: Start: 05-19-2024 End: 05-19-2024 MD Shantel Steven Work Phone: [facility] Work Phone: Start: 05-07-2024 End: 05-07-2024 ambulatory MD Shantel Steven Work Phone: [facility] Work Phone: Start: 05-07-2024 End: 05-07-2024 Patient encounter procedure MD Shantel Steven Work Phone: [facility] Work Phone: Start: 05-07-2024 End: 05-07-2024 MD Shantel Steven Work Phone: [facility] Work Phone: Start: 05-06-2024 Non-patient / Non-visit MD Alessia Steven Work Phone: [facility] Work Phone: Start: 05-06-2024 MD Shantel painting Work Phone: [facility] Work Phone: Start: 05-05-2024 Non-patient / Non-visit MD Alessia Steven Work Phone: [facility] Work Phone: Start: 05-05-2024 MD Shantel painting Work Phone: [facility] Work Phone: Start: 05-04-2024 End: 05-06-2024 Non-patient / Non-visit MD Shantel Steven Work Phone: [facility] Work Phone: Start: 05-04-2024 End: 05-06-2024 MD Shantel Steven Work Phone: [facility] Work Phone: Start: 05-04-2024 Non-patient / Non-visit MD Alessia Steven Work Phone: [facility] Work Phone: Start: 05-04-2024 MD Shantel painting Work Phone: [facility] Work Phone: Start: 05-02-2024 Non-patient / Non-visit MD Alessia Steven Work Phone: [facility] Work Phone: Start: 05-02-2024 MD Shantel painting Work Phone: [facility] Work Phone: Start: 05-01-2024 Non-patient / Non-visit MD Alessia Steven Work Phone: [facility] Work Phone: Start: 05-01-2024 MD Shantel painting Work Phone: [facility] Work Phone: Start: 04-30-2024 Non-patient / Non-visit MD Alessia Steven Work Phone: [facility] Work Phone: Start: 04-30-2024 MD Shantel painting Work Phone: [facility] Work Phone: Start: 04-30-2024 Non-patient / Non-visit MD Alessia Steven Work Phone: [facility] Work Phone: Start: 04-30-2024 MD Shantel painting Work Phone: [facility] Work Phone: Start: 04-29-2024 End: 04-29-2024 Patient encounter procedure MD Shantel Steven Work Phone: [facility] Work Phone: Start: 04-29-2024 End: 04-29-2024 MD Shantel Steven Work Phone: [facility] Work Phone: Start: 04-03-2024 End: 04-03-2024 ambulatory MD Shantel Steven Work Phone: [facility] Work Phone: Start: 04-03-2024 End: 04-03-2024 Patient encounter procedure MD Shantel Steven Work Phone: [facility] Work Phone: Start: 04-03-2024 End: 04-03-2024 MD Shantel Steven Work Phone: [facility] Work Phone: Start: 04-01-2024 Non-patient / Non-visit MD Alessia Steven Work Phone: [facility] Work Phone: Start: 04-01-2024 MD Shantel painting Work Phone: [facility] Work Phone: Start: 03-31-2024 Non-patient / Non-visit MD Alessia Steven Work Phone: [facility] Work Phone: Start: 03-31-2024 MD Shantel painting Work Phone: [facility] Work Phone: Start: 03-28-2024 Non-patient / Non-visit MD Alessia Steven Work Phone: [facility] Work Phone: Start: 03-28-2024 MD Shantel painting Work Phone: [facility] Work Phone: Start: 03-27-2024 Non-patient / Non-visit MD Alessia Steven Work Phone: [facility] Work Phone: Start: 03-27-2024 MD Shantel painting Work Phone: [facility] Work Phone: Start: 03-26-2024 Non-patient / Non-visit MD Alessia Steven Work Phone: [facility] Work Phone: Start: 03-26-2024 MD Shantel painting Work Phone: [facility] Work Phone: Start: 03-25-2024 End: 03-25-2024 Patient encounter procedure MD Shantel Steven Work Phone: [facility] Work Phone: Start: 03-25-2024 End: 03-25-2024 MD Shantel Steven Work Phone: [facility] Work Phone: Start: 03-13-2024 End: 03-13-2024 Patient encounter procedure MD Shantel Steven Work Phone: [facility] [address] Work Phone: Start: 03-13-2024 End: 03-13-2024 ambulatory MD Shantel Steven Work Phone: [facility] Work Phone: Start: 03-07-2024 End: 03-07-2024 ambulatory [facility] Start: 02-19-2024 ambulatory Facility:[facility] Start: 02-15-2024 End: 02-15-2024 ambulatory [facility] Work Phone: Start: 02-15-2024 End: 02-15-2024 Patient encounter procedure [facility] Work Phone: Start: 01-29-2024 Non-patient / Non-visit [facility] Work Phone: Start: 01-24-2024 Non-patient / Non-visit [facility] Work Phone: Start: 01-22-2024 Non-patient / Non-visit [facility] Work Phone: Start: 01-18-2024 End: 01-18-2024 Patient encounter procedure [facility] Work Phone: Start: 01-15-2024 Non-patient / Non-visit [facility] Work Phone: Start: 01-04-2024 Non-patient / Non-visit [facility] Work Phone: Start: 12-18-2023 End: 12-18-2023 ambulatory Shantel Steven Other [employer] Other Start: 12-18-2023 Telephone encounter [address]antel Steven [facility] Start: 11-19-2023 End: 11-19-2023 ambulatory Shantel Steven Other [employer] Other Start: 11-19-2023 Telephone encounter Shantel Steven [facility] Start: 10-23-2023 End: 10-23-2023 ambulatory Azghassan Bakloves Other [employer] Other Start: 10-23-2023 Office outpatient ne w 30 minutes Aziz Bakhous [facility] Start: 10-22-2023 End: 10-22-2023 ambulatory Shantel Steven Other [employer] Other Start: 10-22-2023 Telephone encounter Shantel Steven [facility] Start: 10-18-2023 End: 10-18-2023 ambulatory Shantel Steven Other [employer] Other Start: 10-18-2023 Office outpatient vi sit [address] [facility] Start: 09-07-2023 End: 09-07-2023 ambulatory Shantel Steven Other [employer] Other Start: 09-07-2023 Telephone encounter Shantel Steven [facility] Start: 09-04-2023 End: 09-04-2023 ambulatory Shantel Steven Other [employer] Other Start: 09-04-2023 Office outpatient vi sit [address] [facility] Start: 08-23-2023 End: 08-23-2023 ambulatory Shantel Steven Other [employer] Other Start: 08-23-2023 Telephone encounter Shantel Steven [facility] Start: 07-23-2023 End: 07-23-2023 ambulatory Shantel Steven Other [employer] Other Start: 07-23-2023 Telephone encounter Shantel Steven [facility] Start: 07-17-2023 End: 07-17-2023 ambulatory Shantel Steven Other [employer] Other Start: 07-17-2023 Office outpatient vi sit [address] [facility] Start: 05-30-2023 End: 05-30-2023 ambulatory Shantel Steven Other [employer] Other Start: 05-30-2023 Telephone [address]antel Steven [facility] Start: 05-22-2023 End: 05-22-2023 ambulatory Shantel Steven Other [employer] Other Start: 05-22-2023 Telephone encounter Shantel Tenisha [facility] Start: 05-16-2023 End: 05-16-2023 ambulatory Shantel Tenisha Other [employer] Other Start: 05-16-2023 Telephone encounter Shantel Steven [facility] Start: 05-07-2023 End: 05-07-2023 ambulatory Shantel Steven Other [employer] Other Start: 05-07-2023 Telephone encounter Shantel Tenisha [facility] Start: 04-30-2023 End: 04-30-2023 ambulatory Shantel Steven Other [employer] Other Start: 04-30-2023 Office outpatient vi sit [address] [facility] Start: 04-25-2023 End: 04-25-2023 ambulatory Shantel Steven Other [employer] Other Start: 04-25-2023 Telephone encounter Shantel Tenisha [facility] Start: 04-12-2023 End: 04-12-2023 ambulatory Shnatel Steven Other [employer] Other Start: 04-12-2023 Telephone encounter Shantel Tenisha [facility] Start: 03-09-2023 End: 03-09-2023 ambulatory Shantel Steven Other [employer] Other Start: 03-09-2023 Office outpatient vi sit [address] [facility] Start: 03-07-2023 End: 03-07-2023 ambulatory Shantel Steven Other [employer] Other Start: 03-07-2023 Telephone encounter Shantel Tenisha [facility] Start: 03-06-2023 End: 03-06-[address] SHANTEL STEVEN Facility: Start: 03-05-2023 End: 03-05-2023 ambulatory Shantel Steven Other [employer] Other Start: 03-05-2023 Telephone encounter Shantel Steven [facility] Start: 02-26-2023 End: 02-26-2023 ambulatory Shantel Steven Other [employer] Other Start: 02-26-2023 Telephone encounter Shantel Steven [facility] Start: 02-24-2023 End: 02-24-[address] SHANTEL STEVEN Facility:[facility] Start: 02-23-2023 End: 02-23-2023 ambulatory Shantel Steven Other [employer] Other Start: 02-23-2023 Telephone encounter Shantel Steven [facility] Start: 02-20-2023 End: 02-20-2023 ambulatory Shantel Steven Other [employer] Other Start: 02-20-2023 Transitional care luz cabral [facility] 14 day discharge Shantel Steven [facility] Start: 02-16-2023 End: 02-16-2023 ambulatory Shantel Steven Other [employer] Other Start: 02-16-2023 Telephone encounter Shantel Steven [facility] Start: 02-13-2023 End: 02-14-[address] SHANTEL STEVEN Facility:[facility] Start: 02-02-2023 End: 02-02-2023 ambulatory Shantel Steven Other [employer] Other Start: 02-02-2023 Telephone encounter Shantel Steven [facility] Start: 01-16-2023 End: 01-17-[address] DOCTOR CARMONA Facility:[facility] Start: 01-05-2023 End: 01-05-2023 ambulatory BIN ROJAS Facility:[facility] Start: 01-01-2023 End: 01-02-2023 ambulatory ANALISA BRYANT Facility:[facility] Start: 11-29-2022 End: 11-29-2022 ambulatory Shantel Steven Other [employer] Other Start: 11-29-2022 Telephone encounter Shantel Steven [facility] Start: 11-27-2022 End: 11-27-2022 ambulatory Shantel Steven Other [employer] Other Start: 11-27-2022 Telephone encounter Shantel Steven [facility] Start: 11-24-2022 End: 11-24-2022 ambulatory Shantel Steven Other [employer] Other Start: 11-24-2022 Telephone encounter Shantel Steven [facility] Start: 11-06-2022 ambulatory YAMEL MCCRACKEN Facility :[facility] Start: 09-15-2022 End: 09-16-[address] SHANTEL STEVEN Facility:[facility] Start: 08-04-2022 End: 08-04-2022 Patient encounter procedure Bin SORENSON General Surgery Nill/Adenike Becker Start: 05-02-2022 End: 05-02-[address] SHANTEL STEVEN Facility:[facility] Start: 08-25-2021 Office outpatient ne w 45 minutes Akbar Cui II [facility] Start: 08-09-2017 End: 08-12-2017 Ambulatory PROVIDER UNKNOWN Facility:[facility] Procedures Date Procedure Procedure Detail Performing Clinician Start: 07-17-2024 Urine culture MD Shantel Steven Work Phone: Start: 05-04-2024 Bacteria identified in Urine by [...] Bilateral mastectomy Bin NILL Cardiac catheterization [place] aejorden NILL Cholecystectomy Bin NILL Colonoscopy Bin NILL Decompression laminectomy Mi chachi NILL Esophagogastroduodenoscopy M ichmonse NILL Excision of iliac lymph nodes Bin NILL Facetectomy of vertebra [place] ael NILL Foraminotomy Bin NILL History of operative procedure on shoulder Bin NILL History of sigmoid colectomy Bin NILL Total abdominal hyst erectomy with bilateral salpingo-oophorectomy Bin NILL Plan of Treatment Date Care Activity Detail Author Start: 07-17-2024 Bacteria identified in Urine by Culture [facility] Start: 07-17-2024 [facility] Start: 06-25-2024 Patient referral [facility] Work Phone: Start: 06-16-2024 Patient referral [facility] Work Phone: Start: 05-07-2024 Patient referral [facility] Work Phone: Start: 05-04-2024 Blood Culture 1 Blood Culture 1 [facility] Start: 02-15-2024 Patient referral [facility] Work Phone: Comprehensive metabo lic 2000 panel - Serum or Plasma [facility] CT Abdomen and Pelvi s WO contrast [facility] Microalbumin [Mass/v olume] in Urine [facility] Patient referral [facility] Work Phone: Renal function 2000 panel - Serum or Plasma [facility] US [facility] Immunizations Immunization Date Immunization Notes Care Provider Fa aga 01-18-2024 Pneumococcal Conjugate Vaccine, 20 valent [facility] 09-04-2023 influenza, high dose seasonal, preservative-free Shantel Steven Other [employer] [facility] [facility] Other 09-04-2023 influenza virus vaccine, unspecified formulation [facility] 02-04-2021 COVID-19 mRNA, Comirnaty (Pfizer) [facility] 01-21-2021 COVID-19 mRNA, Comirnaty (Pfizer) [facility] 10-09-2018 influenza virus vaccine, split virus (incl. purified surface antigen) Shantel Steven Other [employer] [facility] Other 10-09-2018 influenza virus vaccine, unspecified formulation [facility] NEGATED: Highlighted row has not occurred!08-21-2019 influenza virus vaccine, split virus (incl. purified surface antigen) Shantel Steven Other [employer] [facility] Other Payers Date Payer Category Payer Self-pay [id number] 1958 Medicare [id number]. [id number] 1958 Self-pay [id number] 1945 Unknown [id number] 2.16.84 [id number] 1945 Unknown [id number] 2.16.84 [id number] 1945 Unknown [id number] 2.16.84 [id number] 1946 Unknown [id number] 2.16.84 [id number] 1945 Unknown [id number] 2.16.84 [id number] 1945 Unknown [id number] 2.16.84 [id number] 1946 Unknown [id number] 2.16.84 [id number] 1946 Unknown [id number] 2.16.84 [id number] 1946 Unknown [id number] 2.16.84 [id number] 1946 Unknown [id number] 2.16.84 [id number] 1945 Unknown [id number] 2.16.84 [id number] Unknown Unknown [id number] 2.16.8 [id number] Unknown [id number] 2.16.8 [id number] Unknown [id number] 2.16.8 [id number] Social History Date Type Detail Facility Sex Assigned At [place] [employer] Other Start: 08-04-2022 End: 07-25-2024 Tobacco smoking status Ex-smoker (finding) General [facility] Tobacco smoking status Never Gener al Surgery Afs[facility]h Start: 1945 Sex Assigned At Female [facility] Medical Equipment Procedure Code Equipment Code Equipment Origin al Text Equipment Identifier Dates Blood Sugar Diagnostic (True Metrix Glucose Test Strip) strip Start: 03-31-2024 Pen Needle, Diab etic (Comfort Ez Pen Hensel) 33 gauge x 5/32 needle Start: 03-25-2024 Blood Sugar Diagnostic (True Metrix Glucose Test Strip) strip Start: 03-31-2024 End: 03-31-2024 Blood Sugar Diagnostic (True Metrix Glucose Test Strip) strip Start: 03-31-2024 Pen Needle, Diab etic (Comfort Ez Pen Hensel) 33 gauge x 5/32 needle Start: 03-25-2024 Blood Sugar Diagnostic (True Metrix Glucose Test Strip) strip Start: 03-31-2024 End: 03-31-2024 Blood Sugar Diagnostic (True Metrix Glucose Test Strip) strip Start: 03-31-2024 Pen Needle, Diab etic (Comfort Ez Pen Hensel) 33 gauge x 5/32 needle Start: 03-25-2024 Blood Sugar Diagnostic (True Metrix Glucose Test Strip) strip Start: 03-31-2024 End: 03-31-2024 Blood Sugar Diagnostic (True Metrix Glucose Test Strip) strip Start: 03-31-2024 Pen Needle, Diab etic (Comfort Ez Pen Hensel) 33 gauge x 5/32 needle Start: 03-25-2024 Blood Sugar Diagnostic (True Metrix Glucose Test Strip) strip Start: 03-31-2024 End: 03-31-2024 Blood Sugar Diagnostic (True Metrix Glucose Test Strip) strip Start: 03-31-2024 Pen Needle, Diab etic (Comfort Ez Pen Hensel) 33 gauge x 5/32 needle Start: 03-25-2024 Blood Sugar Diagnostic (True Metrix Glucose Test Strip) strip Start: 03-31-2024 End: 03-31-2024 Blood Sugar Diagnostic (True Metrix Glucose Test Strip) strip Start: 03-31-2024 Pen Needle, Diab etic (Comfort Ez Pen Hensel) 33 gauge x 5/32 needle Start: 03-25-2024 Blood Sugar Diagnostic (True Metrix Glucose Test Strip) strip Start: 03-31-2024 End: 03-31-2024 Blood Sugar Diagnostic (True Metrix Glucose Test Strip) strip Start: 03-31-2024 Pen Needle, Diab etic (Comfort Ez Pen Hensel) 33 gauge x 5/32 needle Start: 03-25-2024 Blood Sugar Diagnostic (True Metrix Glucose Test Strip) strip Start: 03-31-2024 End: 03-31-2024 Blood Sugar Diagnostic (True Metrix Glucose Test Strip) strip Start: 03-31-2024 Pen Needle, Diab etic (Comfort Ez Pen Hensel) 33 gauge x 5/32 needle Start: 03-25-2024 Blood Sugar Diagnostic (True Metrix Glucose Test Strip) strip Start: 03-31-2024 End: 03-31-2024 Blood Sugar Diagnostic (True Metrix Glucose Test Strip) strip Start: 03-31-2024 Pen Needle, Diab etic (Comfort Ez Pen Hensel) 33 gauge x 5/32 needle Start: 03-25-2024 Blood Sugar Diagnostic (True Metrix Glucose Test Strip) strip Start: 03-31-2024 End: 03-31-2024 Functional Status Date Assessment Result Facility 08-04-2022 Functional Status N/A General [facility] [place] Clinical Notes 08-25-2021 to 08-20-2024 Note Date & Type Note Facility 08-20-2024 Note Cardiovascular Medic [facility] SUBJECTIVE Chief Complaint Patient presents with Congestive Heart Failure Joe Call is a 79 y.o. female here for follow-up. HPI PMHx: HFpEF, PAF, DMII, CKD III, HTN, hypothyroidism, mild carotid stenosis, breast CA s/p chemo/radiation +25years ago There is some confusion regarding her diuretic as there has been a lot of changes between lasix and bumex in the past few months. Patient here for follow up [facility]. Her diuretic was switched again back to lasix, after Dr. Kaplan switched her to bumex in Jun 2024. She has been out of lasix for 3 days now. She was also started on spironolactone upon discharge. Her RX for lasix was 40mg daily. Patient and her brought all her medication bottles with her to the office today. The bottles for Xarelto and lisinopril are not with her. She says she does have Xarelto at home but she isn't sure if she's taking lisinopril or not. She hasn't noticed increased SOB or LE edema. Denies chest pain and bleeding on Xarelto. Denies palpitations and lightheadedness/syncope/falls. -she found Xarelto Rx in her bag. She was admitted in July for CHF exacerbation. She states she had been told to drink 150ml Oz of fluid a day per the deputy sheriff civil division. Her most recent discharge on 07/25/24 she was discharged on lasix 40mg daily and spironolactone 25mg daily. She confirmed she has been taken off of lisinopril at a previous admission. Her kidney function is normal per her recent blood work. She last saw her kidney doctor 6 months ago. She was told at that time that she did not need to see him until 1 year. Her weight has been stable, around 257#. She will drink about 2-3 cups of tea a day and 3 cups of water a day. She doesn't check her BP at home. She has noticed occasional horseness and rattling in her chest when laying down in the evening. Patient Active Problem List Diagnosis Aortic valve disorder Benign essential hypertension Carotid artery stenosis Coronary atherosclerosis Diverticulitis of colon History of malignant neoplasm of breast Intestinal disaccharidase deficiency Lymphedema of left arm Morbid obesity ([facility]) Obstructive sleep apnea syndrome Paroxysmal supraventricular tachycardia ([facility]) Psoriasis Type 2 diabetes mellitus without complication ([facility]) Mixed hyperlipidemia Diastolic dysfunction Carotid bruit Chronic diarrhea Chronic low back pain Depressive disorder Diabetes mellitus ([facility]) Diabetic neuropathy ([facility]) Exocrine pancreatic insufficiency Gastroesophageal reflux disease Hypertension Hypomagnesemia Hypothyroidism Stage 3 chronic kidney disease ([facility]) Hyperlipidemia Atrial fibrillation ([facility]) Paroxysmal atrial fibrillation ([facility]) Abdominal swelling, generalized Acute on chronic diastolic CHF (congestive heart failure) ([facility]) Anxiety Back pain with history of spinal surgery Cervical disc disease Chalazion of right eye Dyspnea Hordeolum externum (stye) Immunization due Lactose intolerance skilled nursing (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 insulin ([facility]) Lumbar degenerative disc disease Lumbar spondylosis Lymph edema Macular degeneration Memory changes Osteoarthritis Secondary hyperparathyroidism ([facility]) Stress incontinence of urine Thrush of mouth and esophagus ([facility]) Urinary incontinence UTI (urinary tract infection) Yeast cystitis CARMELO (acute kidney injury) ([facility]) Tremor Acquired hammer toe of right foot Ataxia Balance disorder CHF (congestive heart failure) ([facility]) Dehydration Diabetic foot ([facility]) Diabetic peripheral neuropathy associated with type 2 diabetes mellitus ([facility]) Disability of walking Essential tremor LPRD (laryngopharyngeal reflux disease) Mass of right axilla Paresthesia Throat tightness Type 2 diabetes mellitus with hyperglycemia, with long-term current use of insulin ([facility]) Venous insufficiency (chronic) (peripheral) Debility Past Medical History: Diagnosis Date Atrial fibrillation ([facility]) Cancer ([facility]) Carotid artery stenosis Coronary artery disease Diabetes mellitus ([facility]) GERD (gastroesophageal reflux disease) Hypertension Sleep apnea Family History Problem Relation Name Age of Onset Coronary artery disease Other Diabetes Other Polycystic kidney disease Other Social History Tobacco Use Smoking status: Former Types: Cigarettes Smokeless tobacco: Never Substance Use Topics Alcohol use: Not Currently Drug use: Never Allergies Allergen Reactions Chocolate Flavor Iodine Other Shellfish Derived Other Sulfa (Sulfonamide Antibiotics) Other Iodinated Contrast Media Rash and Unknown ROS Cardiovascular: Positive for leg swelling (feet). Respiratory: Positive for shortness of breath. Musculoskeletal: Positive for muscle weakness. Neurological: Positive for tremors. All other systems reviewed (more content not included)... [facility] 08-20-2024 Note Patient here for [facility]. Her diuretic was switched again back to lasix, after Dr. Kaplan switched her to bumex in Jun 2024. She has been out of lasix for 3 days now. She was also started on spironolactone upon discharge. Her RX for lasix was 40mg daily. Patient and her brought all her medication bottles with her to the office today. The bottles for Xarelto and lisinopril are not with her. She says she does have Xarelto at home but she isn't sure if she's taking lisinopril or not. She hasn't noticed increased SOB or LE edema. Denies chest pain and bleeding on Xarelto. Denies palpitations and lightheadedness/syncope/falls. Review of Systems Cardiovascular: Positive for leg swelling (feet). Respiratory: Positive for shortness of breath. Musculoskeletal: Positive for muscle weakness. Neurological: Positive for tremors. All other systems reviewed and are negative. [facility] 06-18-2024 Note SD Cardiology - [facility] Subjective Joe Call is a 78 y.o. year old female patient being seen for 1 mo follow up acute on chronic diastolic heart failure, CAD, and CARMELO. 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 In February 2023 she was admitted to [facility] with dehydration secondary to acute gastroenteritis. She also had acute kidney injury in that setting. She has history of breast cancer more than 25 years ago s/p mastectomy, chemo and radiation therapy. She has lymphedema in the left arm. In the past she saw a wind operations manager for bleeding behind the eye . [...] April 2024 she was admitted to the [facility] with increasing weakness and altered mental status. She also had acute renal insufficiency. She had UTI secondary to E. coli. She was admitted again to the [facility] on 06/09/2020 for with acute on chronic [...] She is well-develo (more content not included)... [facility] 05-20-2024 Note BMP today to assess renal function and electrolytes [facility] 05-20-2024 Note Heart failure is unc hanged. NYHA Class II. Continue current treatment regimen. Dietary sodium restriction. Encouraged daily monitoring of the patient's weight. Continue current medications. Heart failure will be reassessed in 1 month. BMP to assess renal function and electrolytes today to see if can uptitrate GDMT- in light Lasix, lisinopril and aldactone on hold from recent hospitalization [facility] 05-20-2024 Note Coronary artery dise ase is unchanged. Continue current medications. Continue GDMT- lipitor, metoprolol continue risk factor modifications- heart healthy diet, regular exercise as tolerated and continue all medications. [facility] 05-20-2024 Note Lipid abnormalities are unchanged. Pharmacotherapy as ordered. Continue lipitor [facility] 05-20-2024 Note [facility] CARDIOLOGY PROGR ESS NOTE HPI: Joe Call is a 78 y.o. female here for hospital F/U HPI: Patient here for follow up [facility] for renal failure. She was also discharged back in March 2024 for CHF. Lisinopril, spironolactone, and furosemide were stopped during one of the admissions. She denies chest pain, SOB, and LE edema. Denies lightheadedness, syncope, and bleeding on Xarelto. Feels much better s/p hospital stay. Palpitations are no more than usual for her. She will be seeing her deputy sheriff civil division (Dr. Rapp) on 06/05/2024. Currently weight is [...] 2022 she was admitted to the [facility] with decompensated diastolic heart failure, she was treated with diuretic therapy. In February 2023 she was admitted to [facility] with dehydration secondary to acute gastroenteritis. She also had acute kidney injury in that setting. She has history of breast cancer more than 25 years ago s/p mastectomy, chemo and radiation therapy. She has lymphedema in the left arm. In the past she saw a wind operations manager for bleeding behind the eye . [...] 2.3 m??? Allergie (more content not included)... [facility] 05-20-2024 Note Patient here for [facility] for renal failure. She was also discharged back in March 2024 for CHF. Lisinopril, spironolactone, and furosemide were stopped during one of the admissions. She denies chest pain, SOB, and LE edema. Denies lightheadedness, syncope, and bleeding on Xarelto. Feels much better s/p hospital stay. Palpitations are no more than usual for her. She will be seeing her deputy sheriff civil division (Dr. Rapp) on 06/05/2024. Review of Systems Cardiovascular: Positive for palpitations. Musculoskeletal: Positive for muscle weakness. All other systems reviewed and are negative. [facility] 03-07-2024 Note [facility] Cardiology - [facility] Subjective Joe Call is a 78 [...] Alcohol use: Not Currently Drug use: Never [facility] Joe is seen in follow up and [...] 2022 she was admitted to the [facility] with decompensated diastolic heart failure, she was treated with diuretic therapy. In February 2023 she was admitted to [facility] with dehydration secondary to acute gastroenteritis. She also had acute kidney injury in that setting. She has history of breast cancer more than 25 years ago s/p mastectomy, chemo and radiation therapy. She has lymphedema in the left arm. In the past she saw a wind operations manager for bleeding behind the eye . [...] TIMES DAILY NEEDED (more content not included)... [facility] 02-15-2024 Hospital Discharge instructions Ambulatory OrdersReferral to Urology Time Frame: 02/15/24, Location: [facility] Work Phone: 11-19-2023 Evaluation note Encounter Date Diagnosis Assessment Notes Nov, Lumbar degenerative disc disease (ICD-10 - M51.36) [employer] Other [id number] Evaluation note* Encounter Date Diagnosis Assessment Notes [...] will check vitamin B12 level next visit [employer] Other 12-11-2023 Evaluation note* Encounter Date Diagnosis Assessment Notes Treatment Notes Treatment Clinical Notes Oct, Lumbar degenerative disc disease (ICD-10 - M51.36) [employer] Other 12-07-2023 Evaluation note* Encounter Date Diagnosis Assessment Notes Treatment Notes Treatment Clinical Notes Oct, Bronchitis (ICD-10 - J40) Finish meds. No acute need for antibiotic at this time Oct, Diabetes mellitus with chronic kidney disease (ICD-10 - E11.22) Due for labs, followup w Dr. Mcconnell Oct, Lumbar degenerative disc disease (ICD-10 - M51.36) Pt will contact neurosurgery. [employer] Other 10-27-2023 Evaluation note* Encounter Date Diagnosis Assessment Notes Treatment Notes Treatment Clinical Notes Aug, Chronic kidney disease, stage 4 (severe) (ICD-10 - N18.4) [employer] Other 10-24-2023 Evaluation note* Encounter Date Diagnosis [...] (ICD-10 - M51.36) Pt requests referral to [facility]. Reviewed [facility] report. Aug, Stress incontinence of urine (ICD-10 - N39.3) R/o infection. Discussed could be related to her diabetes med as well. [employer] Other 10-12-2023 Evaluation note* Encounter Date Diagnosis Assessment Notes Treatment Notes Treatment Clinical Notes Aug, Lumbar degenerative disc disease (ICD-10 - M51.36) [employer] Other 09-11-2023 Evaluation note* Encounter Date Diagnosis Assessment Notes Treatment Notes Treatment Clinical Notes Jul, Lumbar degenerative disc disease (ICD-10 - M51.36) [employer] Other 09-05-2023 Evaluation note* Encounter Date Diagnosis Assessment Notes [...] refill. [facility]arrs reviewed. No med changes needed. [employer] Other 07-05-2023 Evaluation note* Encounter Date Diagnosis Assessment Notes Treatment Notes Treatment Clinical Notes May, C. difficile colitis (ICD-10 - A04.72) [employer] Other 06-19-2023 Evaluation note* Encounter Date Diagnosis Assessment Notes Treatment Notes Treatment Clinical Notes Apr, Skin candidiasis (ICD-10 - B37.2) Discussed this is related to her hyperglycemia. Will treat w nystatin, but needs improvement in diet and glucose readings. Apr, Type 2 diabetes mellitus with hyperglycemia, unspecified whether bowling ball marker insulin use (ICD-10 - E11.65) Pt agrees to see Dr Mcconnell again. Recently sent to ER for glucose of 608. Apr, Tremor of both hands (ICD-10 - R25.1) Referral to Dr. Lopez Apr, Memory changes (ICD- 10 - R41.3) Referral to Dr. Lopez Apr, Gastroesophageal reflux disease without esophagitis (ICD-10 - K21.9) Improved on carafate w PPI. [employer] Other 06-01-2023 Evaluation note* Encounter Date Diagnosis Assessment Notes Treatment Notes Treatment Clinical Notes Apr, Gastroesophageal ref lux disease without esophagitis (ICD-10 - K21.9) [employer] Other 04-28-2023 Evaluation note* Encounter Date Diagnosis [...] get lab ordered on 02/20 today Feb, skilled nursing (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 insulin (ICD-10 - Z79.4) [employer] Other 04-26-2023 Evaluation note* Encounter Date Diagnosis Assessment Notes Treatment Notes Treatment Clinical Notes Feb, C. difficile colitis (ICD-10 - A04.72) [employer] Other 04-17-2023 Evaluation note* Encounter Date Diagnosis Assessment Notes Treatment Notes Treatment Clinical Notes Feb, Gastroesophageal ref lux disease without esophagitis (ICD-10 - K21.9) [employer] Other 04-14-2023 Evaluation note* Encounter Date Diagnosis Assessment Notes Treatment Notes Treatment Clinical Notes Feb, Chronic diarrhea (ICD-10 - K52.9) [employer] Other 04-11-2023 Evaluation note* Encounter Date Diagnosis [...] it really overall has not been helpful. [employer] Other 01-13-2023 Evaluation note* Encounter Date Diagnosis Assessment Notes Treatment Notes Treatment Clinical Notes Nov, Type 2 diabetes mellitus with hyperglycemia, unspecified whether usp insulin use (ICD-10 - E11.65) [employer] Other 10-14-2021 Evaluation note* Encounter Date Diagnosis [...] training 6. Follow up in 3 months. [place] [employer] Other Evaluation + Plan note No data available for this section General Surgery [place] [facility]No [facility] Other Evaluation note* Diagnosis Onset Date Resolution Status Chalazion of right eye acute Immunization due acute Urinary incontinence [facility] Work Phone: Evaluation note* Diagnosis Onset Date Resolution Status Chalazion of right eye acute Immunization due acute Urinary incontinence acute Diabetes mellitus with hyperglycemia acute Hypertension acute Hypothyroidism acute Lumbar spondylosis acute Secondary hyperparathyroidism [facility] Work Phone: Evaluation note* Diagnosis Onset Date [...] acute Thrush of mouth and esophagus acute [facility] Work Phone: Evaluation note* Diagnosis [...] IV acute UTI (urinary tract infection) acute [facility] Work Phone: Evaluation note* Diagnosis [...] acute Thrush of mouth and esophagus acute [id number] acute Secondary hyperparathyroidism acute [facility] Work Phone: Evaluation note* Diagnosis [...] acute Thrush of mouth and esophagus acute [id number] acute CKD (chronic kidney disease) stage 3, GFR 30-59 ml/min acute Hyperlipidemia acute [id number] acute Secondary hyperparathyroidism acute Type 2 diabetes mellitus wit h diabetic chronic kidney disease acute Tremor acute [facility] Work Phone: Evaluation note* Diagnosis [...] acute Thrush of mouth and esophagus acute [id number] acute CKD (chronic kidney disease) stage 3, GFR 30-59 ml/min acute Hyperlipidemia acute [id number] acute Secondary hyperparathyroidism acute Type 2 diabetes mellitus wit h diabetic chronic kidney disease acute Acute on chronic diastolic C HF (congestive heart failure) acute [id number] acute Tremor acute [id number] acute [facility] Work Phone: Evaluation note* Diagnosis [...] acute Thrush of mouth and esophagus acute [id number] acute CKD (chronic kidney disease) stage 3, GFR 30-59 ml/min acute Hyperlipidemia acute [id number]-[id number] acute Secondary hyperparathyroidism acute Type 2 diabetes mellitus wit h diabetic chronic kidney disease acute Acute on chronic diastolic C HF (congestive heart failure) acute [id number]-[id number] acute Tremor acute [id number] acute Mass of right axilla acute [facility] Work Phone: Evaluation note* Diagnosis [...] acute Thrush of mouth and esophagus acute [id number] acute CKD (chronic kidney disease) stage 3, GFR 30-59 ml/min acute Hyperlipidemia acute [id number] acute Secondary hyperparathyroidism acute Type 2 diabetes mellitus wit h diabetic chronic kidney disease acute Acute on chronic diastolic C HF (congestive heart failure) acute [id number] acute Tremor acute FWI-[id number] acute Mass of right axilla acute CHF (congestive heart failure) acute Dehydration acute [id number] acute [id number]-[id number] acute [facility] Work Phone: Evaluation note* Diagnosis [...] acute Thrush of mouth and esophagus acute [id number] acute CKD (chronic kidney disease) stage 3, GFR 30-59 ml/min acute Hyperlipidemia acute [id number] acute Secondary hyperparathyroidism acute Type 2 diabetes mellitus wit h diabetic chronic kidney disease acute Acute on chronic diastolic C HF (congestive heart failure) acute [id number] acute Tremor acute [id number]-[id number]-[id number] acute Back pain with history of spinal surgery acute Cervical disc disease acute CKD (chronic kidney disease), stage IV acute Mass of right axilla acute CHF (congestive heart failure) acute Dehydration acute [id number] acute [id number] acute Dysuria acute [facility] Work Phone: Evaluation note* Diagnosis Onset Date Resolution Status Lumbar degenerative disc disease acute Thrush of mouth and esophagus acute [id number] acute CKD (chronic kidney disease) stage 3, GFR 30-59 ml/min acute Hyperlipidemia acute [id number] acute Secondary hyperparathyroidism acute Type 2 diabetes mellitus wit h diabetic chronic kidney disease acute Acute on chronic diastolic C HF (congestive heart failure) acute [id number] acute Tremor acute CCJ-[id number]-53018639 acute Back pain with history of spinal surgery acute Cervical disc disease acute CKD (chronic kidney disease), stage IV acute Mass of right axilla acute CHF (congestive heart failure) acute Dehydration acute [id number] acute [id number]-QYXH-[id number] acute Dysuria acute [facility] Work Phone: History general Narrative - Reported* [...] History COLONOSCOPY 04/10/2019 Hospitalization History See above [employer] Other [facility] general Narrative - Reported* Type Description Date [...] History COLONOSCOPY 04/10/2019 Hospitalization History See above [employer] Other History general Narrative - [place] [employer] [facility] Other [facility] general Narrative - Reported* Type Description Date [...] GERD 2022 Hospitalization History DIABETES ISSUES 2022 [facility] [employer] Other Hospital Discharge instructions No data available for this section General Surgery [facility] Discharge instructionsAmbulatory Orders* Referral to Neurology Time Frame: 06/16/24, Location: None [facility] Work Phone: Hospital Discharge instructionsAmbulatory Orders* Referral to ENT Time Frame: 06/25/24, Location: None [facility] Work Phone: Progress note No data available [...] Time Advance Directives No June 11 9:56pm Advance Directive Response Recorded Date/ Time Advance Directives No July 11:28am Reason for Referral Reason *Waiting for appt Labs last week. Sees endocrinology for diabetes. Renal function decreased. Diagnosis 1 Chronic kidney disea se, stage 4 (severe) (N18.4) Referral Organization [facility] [employer] [facility] Referring Provider First Name Shantel Referring Provider Last Name Tenisha Referring Provider Specialty [facility] [employer] Referred Organization [facility] Nephrology Referred Provider Cherie Rapp Referred Address [address] [place],[address] Referred Provider Specialty Nephrology Referral Priority Routine General Notes Mariela Kingston 11:35:41 AM >received today, sent P2P Reason *FU 09/13 lumbar p ain Diagnosis 1 Lumbar degenerative disc disease (M51.36) Referral Organization [facility] [employer] [facility] Referring Provider First Name Shantel Referring Provider Last Name Tenisha Referring Provider Specialty [facility] [place] Referred Organization [facility] Referred Provider Terell Soliz Referred Address [address] [place], [place],[address] Referred Provider Specialty Pain Medicin e Referral Priority Routine General Notes Mariela Kingston 03:09:25 PM >received today, waiting for notes to be locked Mariela Kingston 09/06/2023 10:08:29 AM >notes locked, referral faxed Clinical Notes F: [id number] Reason Poorly controlled di abetes Diagnosis 1 Type 2 diabetes maranda itus with hyperglycemia, unspecified whether bowling ball marker insulin use (E11.65) Referral Organization [facility] [employer] [facility] Referring Provider First Name Shantel Referring Provider Last Name Tenisha Referring Provider Specialty [facility] [employer] Referred Organization Unknown Facility Referred Provider Joshua Mcconnell Referred Provider Specialty Internal Med icine Referral Priority Routine Reason tremor and memory lo ss - family history of dementia Diagnosis 1 Tremor of both hands (R25.1) Referral Organization [facility] [employer] [facility] Referring Provider First Name Shantel Referring Provider Last Name Tenisha Referring Provider Specialty [facility] [employer] Referred Organization Unknown Facility Referred Provider Emery [...] disc disease Thrush of mouth and esophagus [id number] Secondary hyperparathyroidism Chief Complaint medication review Amb [...] disc disease Thrush of mouth and esophagus [id number] CKD (chronic kidney disease) stage 3, GFR 30-59 ml/min Hyperlipidemia [id number] Secondary hyperparathyroidism Type 2 diabetes mellitus with [...] disc disease Thrush of mouth and esophagus [id number]-[id number] CKD (chronic kidney disease) stage 3, GFR 30-59 ml/min Hyperlipidemia [id number]-FYZB-[id number] 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 Acute on chronic diastolic CHF (congestive heart failure) [id number] Tremor [id number]-[id number]-[id number] Chief Complaint difficulty swallowin g Amb Documentation [...] disc disease Thrush of mouth and esophagus [id number] CKD (chronic kidney disease) stage 3, GFR 30-59 ml/min Hyperlipidemia [id number] 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 Acute on chronic diastolic CHF (congestive heart failure) [id number]-[id number] Tremor [id number]-[id number] Mass of right axilla Chief Complaint difficulty [...] disc disease Thrush of mouth and esophagus [id number] CKD (chronic kidney disease) stage 3, GFR 30-59 ml/min Hyperlipidemia [id number]-RIOW-92707957 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 Acute on chronic diastolic CHF (congestive heart failure) [id number]-[id number]-44940452 Tremor [id number]-ISIR-[id number] Mass of right axilla Chief Complaint difficulty [...] disc disease Thrush of mouth and esophagus [id number]-[id number] CKD (chronic kidney disease) stage 3, GFR 30-59 ml/min Hyperlipidemia JGQ-[id number] 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 Acute on chronic diastolic CHF (congestive heart failure) [id number]-[id number]-68446647 Tremor [id number]-JIDL-30754119 Mass of right axilla CHF (congestive heart failure) Dehydration [id number]-[id number] [id number] Chief Complaint difficulty swallowin g Amb Documentation [...] disc disease Thrush of mouth and esophagus [id number] CKD (chronic kidney disease) stage 3, GFR 30-59 ml/min Hyperlipidemia [id number]-[id number] 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 Acute on chronic diastolic CHF (congestive heart failure) [id number]-[id number] Tremor [id number]-YRGH-[id number] Back pain with history of spinal surgery Cervical disc disease CKD (chronic kidney disease), stage IV Mass of right axilla CHF (congestive heart failure) Dehydration [id number]-[id number] Dysuria Chief Complaint throat problem SOB RENAL CKD 4 [facility] follow up 3 month f/u Kidney injury, high BP R30.0 UA Amb Documentation TBH f/u:Pulmonary Adema Reason for Visit Lumbar degenerative disc disease Thrush of mouth and esophagus [id number]-[id number] CKD (chronic kidney disease) stage 3, GFR 30-59 ml/min Hyperlipidemia [id number] 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 Acute on chronic diastolic CHF (congestive heart failure) [id number] Tremor [id number]-[id number] Back pain with history of spinal surgery Cervical disc disease CKD (chronic kidney disease), stage IV Mass of right axilla CHF (congestive heart failure) Dehydration GXK-[id number]-[id number] Dysuria Additional Source Comments INFORMATION SOURCE (unrecogn ized section and content) DATE CREATED AUTHOR 05/10/[address] [facility] DATE CREATED AUTHOR AUTHOR'S ORGANIZ ATION 03/10/2023 [facility] DATE CREATED AUTHOR AUTHOR'S ORGANIZ ATION 02/20/2024 [facility] DATE CREATED AUTHOR AUTHOR'S ORGANIZ ATION 07/21/2024 [facility] DATE CREATED AUTHOR AUTHOR'S ORGANIZ ATION 07/24/2024 [facility] EPIC DATE CREATED AUTHOR AUTHOR'S ORGANIZ ATION 08/29/2024 [facility] REASON FOR VISIT (unrecogniz ed section [...] Team Status: Inactive Member Role Status Cecille Setven MD Primary Care Provide r, Attending Provider [...] End: January 18, 2024 Franchesca Sullivan APRN [employer]-C Attending Provider Act chiqui Start: January 18, [...] 2024 Team Status: Active Member Role Status Cecilel Steven MD Primary Care Provider Active Start: [...] Member Role Status Dates Shantel Steven MD Attending Provider Active St art: July 17, 2024 End: July 17, 2024 Team Status: Active Member Role Status Dates Asael Sandoval DO Attending Provider Active Sta rt: July 15, 2024 End: July 15, 2024 Carl Morales MD Referring Provider Active Sta rt: July 15, 2024 End: July 15, 2024 Team Status: Active Member Role Status Dates Jarred Galan DO Attending Provider Active S tart: July 24, 2024 Team Status: Active Member Role Status Dates Shaikh Isak MD Attending Provider Active Sta rt: July 25, 2024 Team Status: Active Member Role Status Dates Daniela Montana LPN Attending Provider Active S tart: July 30, 2024 Team Status: Inactive Member Role Status Dates Shantel Steven MD Primary Care Provide r, Attending Provider Active Start: August 07, 2024 End: August 07, 2024 Goals (unrecognized section and content) [...] BE BASED ON THE PRIMARY CLINICAL RECORDS. [facility] [employer] [facility]. provides no warranty or guarantee of the accuracy or completeness of information in this document.
[2024-09-03 15:59] LABS: Anion Gap 16.3; BUN Creatinine Ratio 26.7; Calcium 9.2 mg/dL (8.5-10.1); Carbon Dioxide 25.2 mmol/L (21.0-32.0); Chloride 101 mmol/L (98-107); Estimated GFR (African America 23 (>=60 mL/min/1.73m^2); Estimated GFR (Non-African Ame 19 (>=60 mL/min/1.73m^2); Glucose 261 mg/dL (74-106); Potassium 5.5 mmol/L (3.5-5.1); Sodium 137 mmol/L (136-145)
== END 2024-09-03 15:21 | disposition home or self-care (01) ==
LOC: LAB 15:21
PROVIDERS: PCP Family Medicine; Visit Provider Nurse Practitioner Family
DX: I50.32 Chronic diastolic (congestive) heart failure (principal)
CPT/HCPCS: 36415; 80048; 83880

== ENCOUNTER 2024-09-29 15:59 | Outpatient (OUT) | payer MEDICARE, SELFPAY ==
[2024-09-29 16:45] LABS: Anion Gap 14.1; BUN Creatinine Ratio 33.3; Calcium 8.8 mg/dL (8.5-10.1); Carbon Dioxide 24.9 mmol/L (21.0-32.0); Chloride 102 mmol/L (98-107); Estimated GFR (African America 31 (>=60 mL/min/1.73m^2); Estimated GFR (Non-African Ame 25 (>=60 mL/min/1.73m^2); Glucose 387 mg/dL (74-106); Sodium 136 mmol/L (136-145)
== END 2024-09-29 16:00 | disposition home or self-care (01) ==
LOC: LAB 16:00
PROVIDERS: PCP Family Medicine; Visit Provider Nurse Practitioner Family
DX: N17.9 Acute kidney failure, unspecified (principal); I50.32 Chronic diastolic (congestive) heart failure
CPT/HCPCS: 36415; 80048

== ENCOUNTER 2024-10-25 22:16 | Emergency (ER) | payer MEDICARE, SELFPAY ==
--- OUTSIDE RECORDS SUMMARY | 2024-10-25 22:24 | XMS_ITS | CCD ---
Author Organization [facility] Care Team Providers Care Sprinkling System Installer Name Role Phone UNKNOWN, PROVIDER Unavailable Unavailable [...] Other Provider MD Eloina Hussein Attending Provider [phone] MD Eloina Hussein Referring Provider DO Jorge Luis Zavala Emergency Provider [phone] MD Shantel Steven Primary Care Provider DO Jorge Luis Zavala Emergency Provider MD Shantel Steven Primary Care Provider [phone] MD Shantel Steven Attending Provider [phone] MD Shantel Steven Attending Provider Shantel Steven MD Primary Care Provider TEODORA GARCIA Attending Unavailable SHANTEL STEVEN Referring Unavailable CHRISTEL CHACON Attending Unavailable SHANTEL STEVEN Referring Unavailable CHRISTEL CHACON Attending Unavailable SHANTEL STEVEN Referring Unavailable RICA KAPLAN Attending Unavailable YAMEL MCCRACKEN Attending Unavailable YAMEL MCCRACKEN Attending Unavailable YAMEL MCCRACKEN Attending Unavailable RICA KAPLAN Attending Unavailable MICHELA DELACRUZ Attending Unavailable FRANCHESCA PERAZA Attending Unavailable Shantel Steven Primary Care Unavailable Shantel Steven Consulting Unavailable Jovita Selshemar F Admitting Unavailable Eloina Hussein Attending Unavailable Eloina Hussein F Referring Unavailable Shantel Steven Primary Care Unavailable Jorge Luis Zavala Admitting Unavailable Jorge Luis Zavala Attending Unavailable Ange Vergara Consulting Unavailable Shantel Steven Primary Care Unavailable Mauri Chavira Admitting Unavailable Kavin Escobar Attending UnavailRenetta Renteria Consulting Unavaila Shantel Daniels Primary Care Unavailable Zhang Norwood Admitting Unavailable Zhang Norwood Attending Unavailable Shantel Steven Attending Unavailable Shantel Steven Admitting Unavailable Allergies Allergy Classification Reported Allergen(s) Allergy Type Date of Onset Reaction(s) Facility (1 source) Iodine (And Iodine Containting Drugs) Drug allergy (disorder) 03-04-20 12 [facility] Repository (20 sources) Shellfish; Translations: [Shellfish] Food allergy (disorder) 03-04-20 12 rash, Eruption of skin (disorder) [facility] Rep[facility] (18 sources) Sulfonamides (Antibiotic); Translations: [SULFA (SULFONAMIDE ANTIBIOTICS)] Drug allergy (disorder) 03-04-20 12 Rash [facility] Rep[facility] (20 sources) Sulfacetamide Drug Allergy 02-15-20 24 diarrhea [facility] (17 sources) Contrast media; Translations: [contrast media (iodine-based)] Drug allergy 02-15-20 Unknown (qualifier value), Rash [facility] [place] (2 sources) Sulfonamides (Antibiotic); Translations: [sulfa drugs] Drug allergy Diarrhea (finding) [facility] (2 sources) Glucosamine Drug Allergy [facility] (2 sources) Iodine (And Iodine Containting Drugs) Drug allergy (disorder) 08-09-20 17 [facility] Repository (11 sources) Contrast media Propensity to adverse reactions 11-18-[address] DYE [facility] Other (16 sources) Iodine; Translations: [IODINE] Drug Allergy 10-30-20 14 Other, Unknown [facility] Other (15 sources) Substance with sulfonamide structure and antibacterial mechanism of action (substance) Drug allergy 10-30-20 14 Unknown [facility] Other (11 sources) Dyes Propensity to adverse reactions Comment:CT Dyes,Dyes,IVP Dyes [facility] Other (16 sources) Shellfish; Translations: [SHELLFISH DERIVED] Allergy to substance 10-30-20 14 [facility] (16 sources) Iodinated Contrast Media; Translations: [IODINATED CONTRAST MEDIA] Allergy to substance 02-15-20 [facility] (4 sources) metFORMIN Drug Allergy 07-03-20 [facility] (4 sources) Chocolate Flavoring Agent (Non-Screening) Propensity to adverse reactions 03 [facility] Work Phone: (4 sources) Shellfish-Derive d Products Drug Intolerance 03-15-20 [facility] (1 source) Chocolate; Translations: [CHOCOLATE FLAVOR] Propensity to adverse reactions to drug (disorder) 01-17-20 [facility] Repository (1 source) Sulfacetamide Drug Allergy 10-24-20 [facility] Repository (1 source) Sulfonamides (Antibiotic) Drug allergy (disorder) 10-24-20 [facility] Repository Medications Current Medications Medication [...] (20 sources) Benzodiazepine Start: 06-05-2024 End: 07-07-2024 ALPRAZolam (Xanax) 0.25 MG tablet Take 0.25 mg by mouth as needed at bedtime 06/07/2024 Active Start: 01-17-2024 End: 03-25-2024 take 0.25 mg [...] Ordered bifidobacterium infantis 4 mg oral capsule (12 sources) Start: 06-05-2024 take 1 capsule by mouth once daily Probiotic Product (Align) 4 MG capsule Take 1 capsule by mouth Daily 06/05/2024 Active biotin 10 mg oral capsule (20 sources) Start: 06-05-2024 take 1 capsule by mouth once daily biotin 10 MG capsule Take 1 capsule by mouth Daily 06/05/2024 Active Start: 06-05-2024 [facility] 70[facility] Biotin Active 96675 MCG PO daily June 05, 2024 12:00am Start: 01-17-2024 End: 04-03-2024 take 5 mg by mouth once daily Biotin Discontinued 5 MG PO Daily January 17, 2024 1:00am April 03, 2024 11:46am take 1 capsule by [facility] every twenty-four hours Biotin 5 MG 1 capsule Orally Once a day Active bumetanide 1 mg oral tablet (4 sources) Loop Diuretic Start: 06-18-2024 End: 06-18-2025 take 1 tablet by mouth in the morning bumetanide (Bumex) 1 MG tablet Take 1 mg by mouth in the morning and 1 mg in the evening. 06/18/2024 06/18/2025 Active cholecalciferol 0.025 mg oral capsule (20 sources) Vitamin D Start: 06-05-2024 take 1 capsule by mouth once daily cholecalciferol (Vitamin D-3) 25 MCG (1000 UT) capsule Take 25 mcg by mouth Daily 06/05/2024 Active Start: 01-17-2024 End: 06-05-2024 take 125 ug by mouth once daily Cholecalciferol (Vitamin D3) Discontinued 125 MCG PO Daily January 17, 2024 1:00am June 05, 2024 12:02pm take 1 capsule by mo [facility] every twenty-four hours Vitamin D3 125 MCG (5000 UT) 1 capsule Orally Once a day Active take 1 capsule by mo [facility] every twenty-four hours Vitamin D3 25 MCG (1000 UT) 1 capsule Orally Once a day Active cholestyramine resin 4000 mg powder for oral suspension (1 source) Bile Acid Sequestrant Start: 03-07-2021 Questran 4 g/9 g oral powder = 1 packet(s), Oral, Daily, # 30 EA, Refills(s) 11, Pharmacy: [id number], 165.1, cm, 03/07/21 13:49:00 EDT, Height/Length Dosing, 121.8, kg, 03/07/21 13:49:00 EDT, Weight Dosing Start Date: 03/07/21 Status: Ordered ciprofloxacin 250 mg oral tablet (1 source) Quinolone Antimicrobial Start: 07-21-2024 take 250 mg by mouth once daily Ciprofloxacin Hcl Active 250 MG PO Daily July 21, 2024 12:00am Dilt-CD 120 mg (14 sources) take 1 capsule by mouth once daily 24 hr dilTIAZem hydrochloride 120 mg extended release oral capsule (20 sources) Calcium Channel Khadijah Start: 07-27-2022 take 1 capsule by mouth once daily diltiazem 120 mg oral capsule, extended release 120 mg = 1 cap(s), Oral, Daily, Refills(s) 0 Start Date: 07/27/22 Status: Ordered Start: 06-19-2021 take 1 capsule by [facility] once daily, then take 1 capsule by mouth every twenty-four hours dilTIAZem CD (Cardizem CD) 120 MG 24 hr capsule Take 120 mg by mouth Daily 12/07/2023 Active take 1 capsule by [facility] every twelve hours dilTIAZem HCl ER 120 MG 1 capsule Orally Twice a day Active famotidine 20 mg oral tablet (20 sources) Histamine-2 Receptor Antagonist Start: 01-17-2024 End: 10-20-2024 take 1 tablet by mouth at bedtime famotidine (Pepcid) 20 MG tablet Indications: LPRD (laryngopharyngeal reflux disease) Take 1 tablet (20 mg) by mouth at bedtime 90 tablet 07/22/2024 10/20/2024 Active Start: 01-07-2023 take 1 tablet by [facility] every twenty-four hours Famotidine 20 MG [...] Glucose Scanning Reade r (Freestyle Familia 2 [place]) misc (1 source) Start: 07-16-2024 Flash Glucose Scanning [place] (Freestyle Familia 2 [place]) misc Active 0 .Route 1 July 16, 2024 12:00am As directed Flash [...] 1 tablet Orally Once a day Active gabapentin 100 mg oral capsule (4 sources) Anti-epileptic Agent Start: 07-10-2024 End: 07-10-2025 take 1 capsule by mouth in the morning, then take 1 capsule by mouth in the evening, then take 1 capsule by mouth at bedtime gabapentin (Neurontin) 100 MG capsule Indications: Diabetic polyneuropathy associated with type 2 diabetes mellitus (CMS/HCC) , Paresthesias Take 1 capsule (100 mg) by mouth in the morning and 1 capsule (100 mg) in the evening and 1 capsule (100 mg) before bedtime. 30 capsule 2 07/10/2024 07/10/2025 Active 3 ml insulin glargine 100 unt/ml pen injector (20 sources) Insulin Analog Start: 06-13-2024 inject 20 [IU] by subcutaneous injection in the morning Basaglar KwikPen 100 UNIT/ML pen Inject 20 Units under the skin in the morning and 20 Units before bedtime. 06/13/2024 Active Start: 06-05-2024 End: 06-13-2024 Insulin Glargine (Basaglar Kwikpen U-100 Insulin) 100 unit/mL (3 mL) insulin pen Active 20 UNIT SUBCUT Every evening June 13, 2024 11:12am Start: 03-25-2024 End: 04-03-2024 Insulin Glargine (Lantus Cha ostar U-100 Insulin) 100 unit/mL (3 mL) insulin pen Discontinued 20 UNIT SUBCUT Every morning March 25, 2024 12:00am April 03, 2024 11:47am Start: 03-13-2024 inject 35 [IU] by alvarez bcutaneous injection in the morning Lantus 100 UNIT/ML injection Inject 35 Units under the skin in the morning. 03/13/2024 Active Start: 06-12-2021 End: 03-25-2024 inject 35 [IU] [...] insulin isophane, human 100 unt/ml pen injector (18 sources) Start: 01-24-2024 insulin NPH, I sophane, (HumuLIN N,NovoLIN N) 100 UNIT/ML injection Inject 1 Units under the skin 01/24/2024 Active Start: 01-24-2024 inject 14 [IU] by alvarez bcutaneous injection three times daily Insulin Nph Isoph [...] oral tablet (20 sources) l-Thyrox ine Start: 06-07-2024 take 1 tablet by mouth before mealtime levothyroxine (Synthroid, Levoxyl) 125 MCG tablet Take 125 mcg by mouth in the morning. Take before meals. 06/07/2024 Active Start: 04-03-2024 End: 07-07-2024 take 1 tablet [...] oral tablet (20 sources) beta-Adrenergic Khadijah Start: 06-07-2024 take 1.5 tablets by mouth in the morning metoprolol tartrate (Lopressor) 100 MG tablet Take 1.5 tablets by mouth in the morning and 1.5 tablets before bedtime. 06/07/2024 Active Start: 05-27-2024 End: 06-07-2024 Metoprolol Tartrate Active [...] tablet by joesph th every twenty-four hours Multiple Vitamins-Minerals (PRESERVISION AREDS 2 PO) (4 sources) Multiple Vitamins-Minerals (PRESERVISION AREDS 2 PO) Take by mouth Active nystatin [id number] unt/ml topical cream (20 sources) Polyene Antifungal Start: End: take 1 mL by mouth three times daily Nystatin Discontinued 1 ML PO Three times daily 60 April 29, 2024 12:00am June 05, 2024 12:06pm swish and swallow Start: 04-29-2024 take 1 mL by mouth t hree times daily Nystatin Active 1 ML PO Three times daily 60 April 29, 2024 12:00am swish and swallow Start: 01-17-2024 End: 07-16-2024 nystatin (Mycostatin) cream Apply 1 application topically if needed 06/05/2024 Active Start: 01-17-2024 End: 07-16-2024 Nystatin Discontinued 1 APPL IC TOPICAL Twice daily June 05, 2024 12:06pm July 16, 2024 10:36am Nystatin [id number] UNIT/GM 1 application Externally Twice a day for 10 days Active Nystatin 161869 UNIT/GM 1 application Externally Twice a day for 10 days Active nystatin 707450 unt/ml / triamcinolone acetonide 1 mg/ml topical cream (4 sources) Polyene Antifungal, Corticosteroid Start: 07-07-2024 Nystatin-Triamcinolone Active 1 APPLIC TOPICAL Twice daily July 07, 2024 12:00am Start: 07-07-2024 omeprazole 40 mg delayed release oral capsule (4 sources) Proton Pump Inhibitor Start: 07-22-2024 End: 10-20-2024 take 1 capsule by mouth before mealtime omeprazole (PriLOSEC) [address] capsule Indications: LPRD (laryngopharyngeal reflux disease) Take 1 capsule (40 mg) by mouth in the morning. Take before meals. Do not crush or chew.. 90 capsule 07/22/2024 10/20/2024 Active pantoprazole 40 mg delayed release oral tablet [...] End: 06-30-2024 take 1 tablet by mouth at mealtime rivaroxaban (Xarelto) 20 MG tablet Take 20 mg by mouth in the evening. Take with meals 03/17/2024 Active take 0.5 tablet by mouth once da meliton Xarelto 10 MG 1/2 tablet Orally Once a day for 90 days Active Selenium 200 MCG (4 sources) take 1 tablet by mouth once daily Selenium 200 MCG 1 tablet Orally Once a day Active spironolactone 50 mg oral tablet (20 sources) Aldosterone Antagonist Start: 03-28-20 End: 07-16-20 take 1 tablet by mouth once daily spironolactone (Aldactone) 50 MG tablet Take 50 mg by mouth Daily 03/28/2024 Active Start: 01-17-2024 End: 05-07-2024 take 25 mg [...] capsule Orally Once a day Active Vitamins A,C,O-Vkce-Mffpws (Preservision Areds) 4,296 mcg-226 mg-90 mg capsule (11 sources) Start: 01-17-2024 take 1 capsule by mouth twice daily Vitamins A,C,A-Ohdb-Jibxxz (Preservision Areds) 4,296 mcg-226 mg-90 mg capsule [...] Drug Class(es) Dates Sig (Normalized) Sig (Original) [id number] 200 actuat albuterol 0.09 mg/actuat metered dose [...] bedtime Orally Once a day Not-Taking amylase 826684 unt / lipase 04672 unt / protease 30976 unt delayed release oral capsule (15 sources) Start: End: Oyx[place]i-Aixkcswt-Eeq lase (Creon) 24,000-76,000 -120,000 unit capsule,delayed release(DR/EC) Discontinued 1 - 2 CAP PO 1-2 TIMES DAILY June 11, 2021 12:00am June 19, 2021 3:12am Start: 06-11-2021 End: 06-19-2021 Start: 05-10-2021 Creon 24,000 u nits oral delayed release capsule See Instructions, take 3 caps with each meal and 2 caps with each snack., # 390 caplet(s), Refills(s) 0, Pharmacy: [id number], 165.1, cm, 04/18/21 13:02:00 EDT, Height/Length [...] 11, 2021 12:00am May 07, 2024 12:01pm take 2 tablets by mouth in the m orning lisinopril 10 MG tablet Take 20 mg by mouth in the morning. Active meloxicam 15 mg oral tablet (12 sources) [...] Start: 07-23-2023 take 1 tablet by joesph every eight hours metroNIDAZOLE 500 MG 1 tablet Orally Three times a day for 10 days Jul, Active Start: 03-07-2023 take 1 tablet by joesph th every eight hours [place] 0-Rzd-Tkw-Fish Oil (Fish Oil) 1,000 mg (120 mg-180 mg) capsule (11 sources) Start: 01-17-2024 End: 04-03-2024 take 1 capsule by mouth once daily [place] 0-Etu-Brd-Fish Oil (Fish Oil) 1,000 mg (120 mg-180 mg) capsule Discontinued 1 CAP PO Daily January 17, 2024 1:00am April 03, 2024 11:49am Start: 01-17-2024 take 1 capsule by mo [facility] once daily [place] 0-Wos-Izl-Fish Oil (Fish Oil) 1,000 mg (120 mg-180 [...] Problem Classification Problem Date Documented Date Episodic/Chronic Acquired foot deformities (4 sources) Acquired hammer toe of right foot; Translations: [Other hammer toe(s) (acquired), right foot] Onset: 4 07-03-2024 Chronic Acute and unspecified renal failure (8 sources) Acute kidney failure, unspecified; Translations: [Acute renal failure syndrome] Onset: 4 Episodic Anxiety disorders (18 sources) Anxiety; Translations: [Anxiety disorder, unspecified] Onset: 4 01-30-2024 Chronic Cardiac dysrhythmias (20 sources) Atrial fibrillation; Translations: [Paroxysmal atrial fibrillation] Onset: 2 07-27-2022 Chronic Cardiac dysrhythmias (1 source) Bradycardia, unspecified; Translations: [Bradycardia, unspecified] Onset: 4 Episodic Chronic kidney disease (20 sources) Chronic kidney disease stage 3; Translations: [Chronic kidney disease, unspecified] Onset: 3 Resolved: 4 07-27-2022 Chronic Chronic kidney disease (3 sources) Chronic kidney disease; Translations: [Chronic kidney disease, stage 3 unspecified] Onset: 3 Chronic obstructive pulmonary disease and bronchiectasis (1 source) Bronchitis, not specified as acute or chronic Episodic Congestive heart failure; nonhypertensive (20 sources) Acute on chronic diastolic heart failure; Translations: [Acute on chronic diastolic (congestive) heart failure] Onset: 3 Chronic Coronary atherosclerosis and other heart disease (20 sources) Coronary arteriosclerosis; Translations: [Atherosclerotic heart disease of [place] coronary artery without angina pectoris] Onset: 2 01-17-2024 Chronic Coronary atherosclerosis and other heart disease (1 source) Coronary angioplasty status; Translations: [CORONARY ANGIOPLASTY STATUS] Onset: 3 Episodic Diabetes mellitus with complications (20 sources) Disorder of kidney due to diabetes mellitus; Translations: [Type 2 diabetes mellitus with diabetic chronic kidney disease] Onset: 3 07-27-2022 Chronic Diabetes mellitus without complication (20 sources) Diabetes mellitus; Translations: [Type 2 diabetes mellitus without complications] Onset: 2 07-27-2022 Chronic Diabetes mellitus without complication (14 sources) Hyperglycemia; Translations: [Hyperglycemia, unspecified] 06-12-2021 Episodic Disorders of lipid metabolism (20 sources) Hypercholesterolemia; Translations: [Hyperlipidemia] Onset: 2 07-27-2022 Chronic Diverticulosis and diverticulitis (20 sources) Diverticulitis; Translations: [Diverticulitis of intestine, part unspecified, without perforation or abscess without bleeding] Onset: 2 07-03-2024 Chronic Esophageal disorders (20 sources) Gastroesophageal reflux disease; Translations: [Gastroesophageal reflux disease without esophagitis] Onset: 3 07-27-2022 Chronic Essential hypertension (20 sources) Hypertensive disorder; Translations: [Essential (primary) hypertension] Onset: 2 07-27-2022 Chronic Fluid and electrolyte disorders (12 sources) Dehydration; Translations: [Hypokalemia] Onset: 3 Episodic Genitourinary symptoms and ill-defined conditions (6 sources) Dysuria; Translations: [Dysuria] Onset: 4 07-17-2024 Episodic Heart valve disorders (4 sources) Aortic valve disorder; Translations: [Nonrheumatic aortic valve disorder, unspecified] Onset: 2 07-03-2024 Chronic Hypertension with complications and secondary hypertension (20 sources) Chronic kidney disease due to hypertension; Translations: [Hypertensive chronic kidney disease with stage 1 through stage 4 chronic kidney disease, or unspecified chronic kidney disease] Onset: 3 Chronic Immunizations and screening for infectious disease (17 sources) Immunization due; Translations: [Encounter for immunization] 01-18-2024 Episodic Intestinal infection (3 sources) Enterocolitis due to Clostridium difficile, not specified as recurrent Episodic Malaise and fatigue (9 sources) Weakness; Translations: [Asthenia] Onset: 4 Episodic Menopausal disorders (1 source) Hormone replacement therapy; Translations: [HORMONE REPLACEMENT THERAPY] Onset: 3 Episodic Mood disorders (5 sources) Depressive disorder; Translations: [Depressive disorder] Onset: 3 07-27-2022 Chronic Nonspecific chest pain (4 sources) Other chest pain; Translations: [OTHER CHEST PAIN] Onset: 3 Episodic Nutritional deficiencies (5 sources) Vitamin D deficiency; Translations: [Vitamin D deficiency, unspecified] Chronic Nutritional deficiencies (1 source) Deficiency of other specified B group vitamins Episodic Occlusion or stenosis of precerebral arteries (4 sources) Carotid artery stenosis; Translations: [Occlusion and stenosis of unspecified carotid artery] Onset: 2 07-03-2024 Chronic Osteoarthritis (20 sources) Osteoarthritis of right knee joint; Translations: [Unilateral primary osteoarthritis, right knee] Onset: 1 Resolved: 1 Chronic Other aftercare (3 sources) halfway (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 insulin; Translations: [GUEST RELATIONS ASSOCIATE CURRENT USE OF INSULIN] Onset: 3 Episodic Other aftercare (1 source) Other 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 driver (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) drug therapy; Translations: [OTH SENIOR CARE CURRENT DRUG THERAPY] Onset: 3 Episodic Other aftercare (1 source) 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 truck driver (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 anticoagulants; Translations: [SENIOR CARE CURRNT USE 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] Onset: 3 Episodic Other and ill-defined heart disease (1 source) Other ill-defined heart diseases; Translations: [OTHER ILL-DEFINED HEART DISEASES] Onset: 3 Chronic Other and ill-defined heart disease (4 sources) Diastolic dysfunction; Translations: [Other ill-defined heart diseases] Onset: 2 07-03-2024 Chronic Other circulatory disease (1 source) Disorder of arteries and arterioles, unspecified; Translations: [DISORDER ARTERIES AND ARTERIOLES UNS] Onset: 3 Chronic Other circulatory disease (4 sources) Tightness in throat; Translations: [Other specified symptoms and signs involving the circulatory and respiratory systems] Onset: 4 07-22-2024 Episodic Other diseases of kidney and ureters (20 sources) Secondary hyperparathyroidism; Translations: [Secondary hyperparathyroidism of renal origin] Onset: 4 01-17-2024 Chronic Other diseases of kidney and ureters (14 sources) Secondary hyperparathyroidism of renal origin; Translations: [Secondary hyperparathyroidism (of renal origin)] 03-25-2024 Chronic Other diseases of veins and lymphatics (18 sources) Lymphedema; Translations: [Lymphedema, not elsewhere classified] Onset: 4 01-17-2024 Chronic Other diseases of veins and lymphatics (4 sources) Lymphedema of left upper limb; Translations: [Lymphedema, not elsewhere classified] Onset: 2 07-03-2024 Chronic Other eye disorders (14 sources) Chalazion; [...] 2 Episodic Other gastrointestinal disorders (9 sources) Generalized intra-abdominal and pelvic swelling, mass and lump; Translations: [Abdominal or pelvic swelling, mass, or lump, generalized] 05-07-2024 Episodic Other hereditary and degenerative nervous system conditions (4 sources) Essential tremor; Translations: [Essential tremor] Onset: 4 07-08-2024 Chronic Other inflammatory condition of skin (4 sources) Psoriasis; Translations: [Psoriasis, unspecified] Onset: 2 07-03-2024 Chronic Other nervous system disorders (4 sources) Walking disability; Translations: [Difficulty in walking, not elsewhere classified] Onset: 4 07-03-2024 Chronic Other nervous system disorders (8 sources) Tremor, unspecified; Translations: [Abnormal involuntary movements] Episodic Other nervous system disorders (4 sources) Impairment of balance; Translations: [Other abnormalities of gait and mobility] Onset: 4 07-08-2024 Episodic Other nervous system disorders (4 sources) Ataxia; Translations: [Ataxia, unspecified] Onset: 4 07-08-2024 Episodic Other nervous system disorders (8 sources) Paresthesia; Translations: [Paresthesia of skin] Onset: 4 07-08-2024 Episodic Other nervous system disorders (4 sources) Sensory ataxia ; Translations: [Other lack of coordination] Onset: 4 07-10-2024 Episodic Other nutritional; endocrine; and metabolic disorders (20 sources) Body mass index 40+ - severely obese; Translations: [Morbid (severe) obesity due to excess calories] Chronic Other nutritional; endocrine; and metabolic disorders (2 sources) Morbid (severe) obesity due to excess calories; Translations: [Severe obesity (BMI >= 40) E66.01] Onset: 1 Resolved: 1 Chronic Other nutritional; endocrine; and metabolic disorders (5 sources) Hypomagnesemia; Translations: [Hypomagnesemia] Onset: 3 07-27-2022 Chronic Other nutritional; endocrine; and metabolic [...] nutritional; endocrine; and metabolic disorders (4 sources) Intestinal disaccharidase deficiency; Translations: [Lactose intolerance, unspecified] Onset: 2 07-03-2024 Chronic Other nutritional; endocrine; and metabolic disorders (4 sources) Morbid obesity; Translations: [Morbid (severe) obesity due to excess calories] Onset: 2 07-03-2024 Chronic Other nutritional; endocrine; and metabolic disorders (1 source) Hypomagnesemia; Translations: [Hypomagnesemia] Onset: 4 Chronic Other nutritional; endocrine; and metabolic disorders (20 sources) Loss of appetite; Translations: [Anorexia] Episodic Other skin disorders (10 sources) Localized swelling, mass and lump, right upper limb; Translations: [Mass of right axilla] 07-07-2024 Episodic Pulmonary heart disease (1 source) Pulmonary hypertension, unspecified; Translations: [PULMONARY HYPERTENSION UNSPECIFIED] Onset: 3 Chronic Residual codes; unclassified (10 sources) Obstructive sleep apnea syndrome; Translations: [Obstructive sleep apnea (adult) (pediatric)] Onset: 2 07-03-2024 Chronic Residual codes; unclassified (1 source) Acquired [...] UTERUS] Onset: 3 Episodic Residual codes; unclassified (1 source) Other amnesia Episodic Residual codes; unclassified (1 source) Other specified postprocedural states; Translations: [Other specified postprocedural states] Onset: 4 Episodic Residual codes; unclassified (1 source) Disorientation, unspecified; Translations: [Disorientation, unspecified] Onset: 4 Episodic Retinal detachments; defects; vascular occlusion; and retinopathy (19 sources) Unspecified macular degeneration; Translations: [Degenerative disorder of macula ] Onset: 3 01-17-2024 Chronic Screening and history of mental health and substance abuse codes (1 source) Personal history of nicotine dependence; Translations: [PERSONAL HISTORY OF NICOTINE DEPEND] Onset: 3 Episodic Spondylosis; intervertebral disc disorders; other back problems (20 sources) Degeneration of lumbar intervertebral disc; Translations: [Other intervertebral disc degeneration, lumbar region] Onset: 4 Chronic Spondylosis; intervertebral disc disorders; other back problems (20 sources) Chronic low back pain; Translations: [Post-surgery back pain] Onset: 3 07-27-2022 Episodic Thyroid disorders (20 sources) Hypothyroidism; Translations: [Hypothyroidism, unspecified] Onset: 3 07-27-2022 Chronic Unclassified (1 source) CONTACT W/AND (SUSP) EXPOS COVID-19; Translations: [CONTACT W/AND (SUSP) EXPOS COVID-19] Onset: 3 Unclassified (1 source) Low back pain, unspecified; Translations: [Low back pain, unspecified] Onset: 4 Past or Other Problems Problem Classification Problem Date Documented Da te Episodic/Chronic Cancer of breast (6 sources) History of malignant neoplasm of breast; Translations: [Personal history of malignant neoplasm of breast] Onset: 2 07-27-2022 Episodic Genitourinary symptoms and ill-defined conditions (20 sources) Genuine stress incontinence; Translations: [Stress incontinence (female) (male)] Onset: 4 Resolved: 4 Chronic Inflammation; infection of eye (except that caused by tuberculosis or sexually transmitteddisease) (18 sources) External hordeolum; Translations: [Hordeolum externum unspecified eye, unspecified eyelid] Onset: 4 01-18-2024 Episodic Mycoses (20 sources) Candidiasis of skin and nail; Translations: [Monilial cystitis] Onset: 4 Resolved: 4 Episodic Noninfectious gastroenteritis (11 sources) Chronic diarrhea; Translations: [Noninfective gastroenteritis and colitis, unspecified] Onset: 3 07-27-2022 Episodic Other aftercare (20 sources) Long-term current use of insulin; Translations: [halfway (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 insulin] Onset: 4 Resolved: 4 01-17-2024 Episodic Other circulatory disease (5 sources) Carotid bruit; Translations: [Other specified symptoms and signs involving the circulatory and respiratory systems] Onset: 3 07-27-2022 Episodic Other connective tissue disease (2 sources) Repeated falls; Translations: [Repeated falls] Onset: 4 Episodic Other diseases of veins and lymphatics (4 sources) Peripheral venous insufficiency; Translations: [Venous insufficiency (chronic) (peripheral)] Onset: 4 07-03-2024 Episodic Other eye disorders (4 sources) Chalazion of right eyelid; Translations: [Chalazion right eye, unspecified eyelid] Onset: 4 07-03-2024 Episodic Other gastrointestinal disorders (14 sources) Swollen abdomen; Translations: [Generalized intra-abdominal and pelvic swelling, mass and lump] Onset: 4 05-07-2024 Episodic Other lower respiratory disease (4 sources) Shortness of breath; Translations: [SHORTNESS OF BREATH] Onset: 3 Episodic Other lower respiratory disease (18 sources) Dyspnea; Translations: [Dyspnea, unspecified] Onset: 4 06-12-2021 Episodic Other nervous system disorders (11 sources) Tremor; Translations: [Tremor, unspecified] Onset: 4 06-16-2024 Episodic Other nervous system disorders (2 sources) Other abnormalities of gait and mobility; Translations: [Other abnormalities of gait and mobility] Onset: 4 Episodic Other non-traumatic joint disorders (4 sources) Pain in left shoulder; Translations: [Pain in joint, shoulder region] Onset: 4 Resolved: 4 07-03-2024 Episodic Other nutritional; endocrine; and metabolic disorders (18 sources) Intolerance to lactose; Translations: [Lactose intolerance, unspecified] Onset: 4 Resolved: 4 01-17-2024 Chronic Other upper respiratory infections (10 sources) Pharyngitis; Translations: [Acute pharyngitis, unspecified] Onset: 4 Resolved: 4 06-25-2024 Episodic Pancreatic disorders (not diabetes) (5 sources) Exocrine pancreatic insufficiency; Translations: [Exocrine pancreatic insufficiency] Onset: 3 07-27-2022 Episodic Phlebitis; thrombophlebitis and thromboembolism (2 sources) Phlebitis and thrombophlebitis of superficial vessels of unspecified lower extremity; Translations: [Phlebitis and thrombophlebitis of superficial vessels of unspecified lower extremity] Onset: 4 Episodic Residual codes; unclassified (1 source) Generalized edema; Translations: [GENERALIZED EDEMA] Onset: 2 Episodic Residual codes; unclassified (20 sources) Memory impairment; Translations: [Other amnesia] Onset: 4 01-17-2024 Episodic Syncope (18 sources) Near syncope; Translations: [Syncope and collapse] Onset: 4 06-19-2021 Episodic Urinary tract infections (20 sources) Urinary tract infectious disease; Translations: [Urinary tract infection, site not specified] Onset: 4 Resolved: 4 05-07-2024 Episodic Results Test Name Value Interpretation Reference Range Facility Dipstick and Microscopicon 1 12-23-2023 Appearance (U) Cloudy Critically abnormal Clear [facility] Comment on above: Order Comment: Name Collection Type:: Peacock Catheter Performed By: #### M G, BMP #### [facility] [address] [place] [id number] [place] Bacteria,Urine None Seen Normal None Seen [facility] Comment on above: Order Comment: Name Collection Type:: Peacock Catheter Performed By: #### M G, BMP #### [facility] [address] [place] [address] [place] Bilirubin,Urine Negative Normal Negative The [facility] Comment on above: Order Comment: Name Collection Type:: Peacock Catheter Performed By: #### M G, BMP #### [facility] [address] [place] [address] [place] Calcium Oxalate Crystals,Urine Rare Normal [facility] Comment on above: Order Comment: Name Collection Type:: Peacock Catheter Performed By: #### M G, BMP #### [facility] [address] [place] [address] [place] Color (U) Yellow Normal Yellow [facility] Comment on above: Order Comment: Name Collection Type:: Peacock Catheter Performed By: #### M G, BMP #### [address] Glucose Ql (U) 30 mg/dL High Normal The [facility] Comment on above: Order Comment: Name Collection Type:: Peacock Catheter Performed By: #### M G, BMP #### [place] [address] [place] Hyaline Casts,Urine 0 [LPF] Normal 0-8 The [facility] Comment on above: Order Comment: Name Collection Type:: Peacock Catheter Performed By: #### M G, BMP #### [address] Ketones Ql (U) Negative Normal Negative The [facility] Comment on above: Order Comment: Name Collection Type:: Peacock Catheter Performed By: #### M G, BMP #### [address] Leukocyte esterase Test strip Ql (U) 1+ High Negative [facility] Comment on above: Order Comment: Name Collection Type:: Peacock Catheter Performed By: #### M G, BMP #### [place] [address] [place] Mucus,Urine Rare Normal [facility] Comment on above: Order Comment: Name Collection Type:: Peacock Catheter Result Comment: PERF ORMED BY: [place] [address] PATHOLOGIST HOT SAW OPERATOR MAY HYDE M.D. Performed By: #### M G, BMP #### [place] [address] [place] Nitrite,Urine Negative Normal Negative The [facility] Comment on above: Order Comment: Name Collection Type:: Peacock Catheter Performed By: #### M G, BMP #### [place] [address] [place] Occult Blood,Urine 3+ High Negative The [facility] Comment on above: Order Comment: Name Collection Type:: Peacock Catheter Result Comment: PERF ORMED BY: [place] [address] PATHOLOGIST HOT SAW OPERATOR MAY HYDE M.D. Performed By: #### M G, BMP #### [address] pH (U) 5.5 [pH] Normal 5.0-9.0 [facility] Comment on above: Order Comment: Name Collection Type:: Peacock Catheter Performed By: #### M G, BMP #### [address] Protein (U) [Mass/Vol] 300 mg/dL High Negative Th e [facility] Comment on above: Order Comment: Name Collection Type:: Peacock Catheter Performed By: #### M G, BMP #### [address] RBC,Urine Innumerable High 0-4 [facility] Comment on above: Order Comment: Name Collection Type:: Peacock Catheter Performed By: #### M G, BMP #### [place] [address] [place] Specificy [place],Urine 1.019 Normal 1.001-1.030 [facility] Comment on above: Order Comment: Name Collection Type:: Peacock Catheter Performed By: #### M G, BMP #### [place] [address] [place] Squamous Epithelial Cell,Urine 1 [HPF] Normal 0-2 [facility] Comment on above: Order Comment: Name Collection Type:: Peacock Catheter Performed By: #### M G, BMP #### [place] [address] [place] Urobilinogen,Urine Normal Normal Normal The [facility] Comment on above: Order Comment: Name Collection Type:: Peacock Catheter Performed By: #### M G, BMP #### [place] [address] [place] WBC,Urine 10 [HPF] High 0-4 [facility] Comment on above: Order Comment: Name Collection Type:: Peacock Catheter Performed By: #### M Bela, BMP #### [address] Urine Cultureon 10-22-2024 Bacteria identified Cx Nom (U) 15,000 colonies/ml mixed bacterial skin contaminants 2 Days PERFORMED BY: [place] [address] PATHOLOGIST HOT SAW OPERATOR MAY HYDE M.D. Normal The [facility] Comment on above: Performed By: #### M G, BMP #### [address] A1C with Estimated Average Bela hansen 10-20-2024 Glucose [Mass/Vol] 292 mg/dL Normal The [facility] Comment on above: Result Comment: PERF ORMED BY: [place] [address] PATHOLOGIST HOT SAW OPERATOR MAY HYDE M.D. Performed By: #### G LULS #### Point of Care testing , HbA1c (Bld) [Mass fraction] 11.8 % High 4.3-5.6 [facility] Comment on above: Result Comment: Incr eased risk for diabetes: 5.7 - 6.4 diabetes: >6.4 glycemic control for adults with diabetes: <7.0 Performed By: #### G LULS #### Point of Care testing , Basic Metabolic Panelon Anion gap [Moles/Vol] Not performed Normal 6.0-15.0 [facility] Comment on above: Performed By: #### M Bela, BMP #### [place] [address] [place] Calcium [Mass/Vol] 8.7 mg/dL Normal 8.6-10.3 The [facility] Comment on above: Performed By: #### M G, BMP #### [address] Chloride [Moles/Vol] 97 mmol/L Low 98-107 [facility] Comment on above: Performed By: #### M Bela, BMP #### [address] CO2 [Moles/Vol] 26.0 mmol/L Normal 21.0-31.0 The [facility] Comment on above: Performed By: #### M G, BMP #### [address] Creatinine [Mass/Vol] 3.06 mg/dL High 0.60-1.20 [facility] Comment on above: Performed By: #### M G, BMP #### [address] Creatinine Clr Calc Pharmacy 18.79 Normal [facility] Comment on above: Performed By: #### M G, BMP #### [address] Estimated GFR 15.067 mL/Min Normal The [facility] Comment on above: Performed By: #### M G, BMP #### [address] Glucose [Mass/Vol] 159 mg/dL Significant change up 70-100 [facility] Comment on above: Result Comment: [facility] Glucose Reference Range is dependent on time and content of last meal. Glucose of more than 200 mg/dL in a nonstressed, ambulatory subject supports the diagnosis of Diabetes Mellitus. ADA recommended reference range Performed By: #### M G, BMP #### [address] Potassium Normal 3.5-5.1 [facility] Comment on above: Result Comment: Spec imen hemolyzed, redraw requested Performed By: #### M G, BMP #### [place] [address] [place] Sodium Normal 136-145 [facility] Comment on above: Result Comment: Spec imen hemolyzed, redraw requested Performed By: #### M G, BMP #### [address] Urea nitrogen [Mass/Vol] 91 mg/dL High 7-25 [facility] Comment on above: Performed By: #### M G, BMP #### [place] [id number] [facility] Glucose Poct Glucometerson 1 12-21-2023 Glucose [Mass/Vol] 209 mg/dL Normal The [facility] Comment on above: Result Comment: [place] om Glucose Reference Range is dependent on time and content of last meal. Glucose of more than 200 mg/dL in a nonstressed, ambulatory subject supports the diagnosis of Diabetes Mellitus. PERFORMED BY: [place] [address] PATHOLOGIST HOT SAW OPERATOR MAY HYDE M.D. Performed By: #### Vandana Cramer, BMP #### [address] Glucose [Mass/Vol] 164 mg/dL Normal The [facility] Comment on above: Result Comment: [place] [facility] Glucose Reference Range is dependent on time and content of last meal. Glucose of more than 200 mg/dL in a nonstressed, ambulatory subject supports the diagnosis of Diabetes Mellitus. PERFORMED BY: [place] [address] PATHOLOGIST HOT SAW OPERATOR MAY HYDE M.D. Performed By: #### Vandana Cramer, BMP #### [place] [id number] [facility] Magnesiumon 10-20-2024 Magnesium Normal 1.9-2.7 [facility] Comment on above: Result Comment: Spec imen hemolyzed, redraw requested PERFORMED BY: [place] [address] PATHOLOGIST HOT SAW OPERATOR MAY HYDE M.D. Performed By: #### Vandana Cramer, BMP #### [place] [id number] [facility] Redraw Magnesiumon Magnesium [Mass/Vol] 1.9 mg/dL Normal 1.9-2.7 [facility] Comment on above: Result Comment: PERF ORMED BY: [place] [id number] PATHOLOGIST HOT SAW OPERATOR MAY HYDE M.D. Performed By: #### G LULS #### Point of Care testing , Redraw Magnesium Normal 1.9-2.7 The [facility] Comment on above: Result Comment: Spec imen hemolyzed, redraw requested PERFORMED BY: [place] [address] PATHOLOGIST HOT SAW OPERATOR MAY HYDE M.D. Performed By: #### G LULS #### Point of Care testing , Redraw Potassiumon Potassium [Moles/Vol] 4.0 mmol/L Normal 3.5-5.1 [facility] Comment on above: Performed By: #### G LULS #### Point of Care testing , Redraw Potassium Normal 3.5-5.1 The [facility] Comment on above: Result Comment: Spec imen hemolyzed, redraw requested Performed By: #### G LULS #### Point of Care testing , Redraw Sodiumon 10-20-2024 Sodium [Moles/Vol] 134 mmol/L Low 136-145 The [facility] Comment on above: Performed By: #### G LULS #### Point of Care testing , Basic Metabolic Panelon Anion gap [Moles/Vol] 14.7 mmol/L Normal 6.0-15.0 Th e [facility] Comment on above: Performed By: #### Vandana Cramer, BMP #### [place] [address] [place] Calcium [Mass/Vol] 9.1 mg/dL Normal 8.6-10.3 The [facility] Comment on above: Performed By: #### Vandana Cramer, BMP #### [place] [address] [place] Chloride [Moles/Vol] 95 mmol/L Low 98-107 [facility] Comment on above: Performed By: #### Vandana Cramer, BMP #### [place] [address] [place] CO2 [Moles/Vol] 28.6 mmol/L Normal 21.0-31.0 The [facility] Comment on above: Performed By: #### M Bela, BMP #### [address] Creatinine [Mass/Vol] 2.71 mg/dL Significan t change up 0.60-1.20 [facility] Comment on above: Performed By: #### M G, BMP #### [address] Creatinine Clr Calc Pharmacy 21.49 Normal [facility] Comment on above: Performed By: #### M G, BMP #### [address] Estimated GFR 17.432 mL/Min Normal The [facility] Comment on above: Performed By: #### Vandana Cramer, BMP #### [address] Glucose [Mass/Vol] 288 mg/dL High 70-100 The [facility] Comment on above: Result Comment: [facility] [place] Glucose Reference Range is dependent on time and content of last meal. Glucose of more than 200 mg/dL in a nonstressed, ambulatory subject supports the diagnosis of Diabetes Mellitus. ADA recommended reference range Performed By: #### M G, BMP #### [address] Potassium [Moles/Vol] 4.3 mmol/L Normal 3.5-5.1 [facility] Comment on above: Performed By: #### Vandana Cramer, BMP #### [place] [address] [place] Sodium [Moles/Vol] 134 mmol/L Low 136-145 The [facility] Comment on above: Performed By: #### Vandana G, BMP #### [address] Urea nitrogen [Mass/Vol] 77 mg/dL High 7-25 [facility] Comment on above: Performed By: #### Vandana G, BMP #### [place] [address] [facility] Glucose Poct Glucometerson 1 12-20-2023 Glucose [Mass/Vol] 222 mg/dL Normal [facility] Comment on above: Result Comment: [facility] Glucose Reference Range is dependent on time and content of last meal. Glucose of more than 200 mg/dL in a nonstressed, ambulatory subject supports the diagnosis of Diabetes Mellitus. PERFORMED BY: [place] [id number] PATHOLOGIST HOT SAW OPERATOR MAY HYDE M.D. Performed By: #### G LULS #### Point of Care testing , Glucose [Mass/Vol] 306 mg/dL Normal [facility] Comment on above: Result Comment: [facility] Glucose Reference Range is dependent on time and content of last meal. Glucose of more than 200 mg/dL in a nonstressed, ambulatory subject supports the diagnosis of Diabetes Mellitus. PERFORMED BY: [address] [address] PATHOLOGIST HOT SAW OPERATOR MAY HYDE M.D. Performed By: #### G LULS #### Point of Care testing , Glucose [Mass/Vol] 342 mg/dL Normal [facility] Comment on above: Result Comment: [facility] [place] Glucose Reference Range is dependent on time and content of last meal. Glucose of more than 200 mg/dL in a nonstressed, ambulatory subject supports the diagnosis of Diabetes Mellitus. PERFORMED BY: [address] [address] PATHOLOGIST HOT SAW OPERATOR MAY HYDE M.D. Performed By: #### G LULS #### Point of Care testing , Glucose [Mass/Vol] 267 mg/dL Normal [facility] Comment on above: Result Comment: [facility] [place] Glucose Reference Range is dependent on time and content of last meal. Glucose of more than 200 mg/dL in a nonstressed, ambulatory subject supports the diagnosis of Diabetes Mellitus. PERFORMED BY: [address] [address] PATHOLOGIST HOT SAW OPERATOR MAY HYDE M.D. Performed By: #### Bela LULS #### Point of Care testing , Magnesiumon 10-19-2024 Magnesium [Mass/Vol] 2.0 mg/dL Normal 1.9-2.7 [facility] Comment on above: Result Comment: PERF ORMED BY: [place] [address] PATHOLOGIST HOT SAW OPERATOR MAY HYDE M.D. Performed By: #### Vandana Cramer, BMP #### [address] Basic Metabolic Panelon 12 Anion gap [Moles/Vol] 15.4 mmol/L High 6.0-15.0 [facility] e [facility] Comment on above: Order Comment: REY PARKER NOTIFIED. SMB 0442. Performed By: #### Vandana Cramer, KAREN, TSH3, T4F #### [address] Calcium [Mass/Vol] 9.5 mg/dL Normal 8.6-10.3 The [facility] Comment on above: Order Comment: REY PARKER NOTIFIED. SMB 0442. Performed By: #### Vandana Cramer, KAREN, TSH3, T4F #### [address] Chloride [Moles/Vol] 97 mmol/L Low 98-107 [facility] Comment on above: Order Comment: REY PARKER NOTIFIED. SMB 0442. Performed By: #### Vandana Cramer, KAREN, TSH3, T4F #### [address] CO2 [Moles/Vol] 29.7 mmol/L Normal 21.0-31.0 The [facility] Comment on above: Order Comment: REY PARKER NOTIFIED. SMB 0442. Performed By: #### Vandana Cramer, BMP, TSH3, T4F #### [address] Creatinine [Mass/Vol] 1.81 mg/dL High 0.60-1.20 [facility] Comment on above: Order Comment: REY PARKER NOTIFIED. SMB 0442. Performed By: #### Vandana Cramer, KAREN, TSH3, T4F #### [facility] [address] Creatinine Clr Calc Pharmacy 32.95 Normal [facility] Comment on above: Order Comment: REY PARKER NOTIFIED. SMB 0442. Performed By: #### Vandana Cramer, KAREN, TSH3, T4F #### [facility] [address] Estimated GFR 28.294 mL/Min Normal The [facility] Comment on above: Order Comment: REY PARKER NOTIFIED. SMB 0442. Performed By: #### KAREN Hansen, TSH3, T4F #### [address] Glucose [Mass/Vol] 220 mg/dL High 70-100 The [facility] Comment on above: Order Comment: REY PARKER NOTIFIED. SMB 0442. Result Comment: [facility] Glucose Reference Range is dependent on time and content of last meal. Glucose of more than 200 mg/dL in a nonstressed, ambulatory subject supports the diagnosis of Diabetes Mellitus. ADA recommended reference range Performed By: #### Vandana Cramer, KAREN, TSH3, T4F #### [address] Potassium [Moles/Vol] 4.1 mmol/L Normal 3.5-5.1 [facility] Comment on above: Order Comment: REY PARKER NOTIFIED. SMB 0442. Performed By: #### Vandana Cramer, KAREN, TSH3, T4F #### [facility] [address] [place] [id number] [facility] Sodium [Moles/Vol] 138 mmol/L Normal 136-145 The [facility] Comment on above: Order Comment: REY PARKER NOTIFIED. SMB 0442. Performed By: #### Vandana Cramer, BMP, TSH3, T4F #### [address] Urea nitrogen [Mass/Vol] 66 mg/dL High 7-25 [facility] Comment on above: Order Comment: REY PARKER NOTIFIED. SMB 0442. Performed By: #### KAREN Hansen, TSH3, T4F #### [facility] [address] Free T4 (Free Thyroxine)on 1 12-19-2023 Free T4 [Mass/Vol] 1.26 ng/dL High 0.61-1.12 The [facility] Comment on above: Order Comment: REY PARKER NOTIFIED. SMB 0442. Performed By: #### G LULS #### Point of Care testing , Glucose Poct Glucometerson 12-19-2023 Glucose [Mass/Vol] 329 mg/dL Normal [facility] [facility] Comment on above: Result Comment: [place] Glucose Reference Range is dependent on time and content of last meal. Glucose of more than 200 mg/dL in a nonstressed, ambulatory subject supports the diagnosis of Diabetes Mellitus. PERFORMED BY: [address] [place] [address] PATHOLOGIST HOT SAW OPERATOR MAY HYDE M.D. Performed By: #### G LULS #### Point of Care testing , Glucose [Mass/Vol] 210 mg/dL Normal The [facility] Comment on above: Result Comment: [place] Glucose Reference Range is dependent on time and content of last meal. Glucose of more than 200 mg/dL in a nonstressed, ambulatory subject supports the diagnosis of Diabetes Mellitus. PERFORMED BY: [address] [place] [address] PATHOLOGIST HOT SAW OPERATOR MAY HYDE M.D. Performed By: #### Vandana Cramer, BMP #### [facility] [address] Glucose [Mass/Vol] 251 mg/dL Normal The [facility] Comment on above: Result Comment: [place] Glucose Reference Range is dependent on time and content of last meal. Glucose of more than 200 mg/dL in a nonstressed, ambulatory subject supports the diagnosis of Diabetes Mellitus. PERFORMED BY: [address] [place] [address] PATHOLOGIST HOT SAW OPERATOR MAY HYDE M.D. Performed By: #### Vandana Cramer, BMP #### [address] Glucose [Mass/Vol] 207 mg/dL Normal The [facility] Comment on above: Result Comment: [place] Glucose Reference Range is dependent on time and content of last meal. Glucose of more than 200 mg/dL in a nonstressed, ambulatory subject supports the diagnosis of Diabetes Mellitus. PERFORMED BY: [place] [address] PATHOLOGIST HOT SAW OPERATOR MAY HYDE M.D. Performed By: #### Vandana Cramer, BMP #### [address] Glucose [Mass/Vol] 188 mg/dL Normal The [facility] Comment on above: Result Comment: [place] Glucose Reference Range is dependent on time and content of last meal. Glucose of more than 200 mg/dL in a nonstressed, ambulatory subject supports the diagnosis of Diabetes Mellitus. PERFORMED BY: [place] [address] PATHOLOGIST HOT SAW OPERATOR MAY HYDE M.D. Performed By: #### G LULS #### Point of Care testing , Magnesiumon 10-18-2024 Magnesium [Mass/Vol] 2.1 mg/dL Normal 1.9-2.7 The [facility] Comment on above: Order Comment: REY PARKER NOTIFIED. SMB 0442. Performed By: #### G LULS #### Point of Care testing , Thyroid Peroxidase Antibodie son 10-18-2024 Thyroid Peroxidase Antibodies <9 Normal 0-34 The [facility] Comment on above: Order Comment: REY PARKER NOTIFIED. SMB 0442. Result Comment: Perf ormed at: - [facility] [address] [id number] [place] Repairer: Dimitri Landis PhD, Phone: [phone] PERFORMED BY: [place] [address] PATHOLOGIST HOT SAW OPERATOR MAY HYDE M.D. Performed By: #### Vandana Cramer, BMP #### [address] Thyroid Stimulating Hormoneo n 10-18-2024 TSH Qn 1.86 m[IU]/L Normal 0.45-5.33 The [facility] Comment on above: Order Comment: REY PARKER NOTIFIED. B 2122. Result Comment: PERF ORMED BY: [place] [address] PATHOLOGIST HOT SAW OPERATOR MAY HYDE M.D. Performed By: #### G MICK #### Point of Care testing , Complete Blood Count Auto Di ffon 10-17-2024 Basophils (Bld) [#/Vol] 0.1 10*3/uL Normal 0.0-0.2 The [facility] Comment on above: Result Comment: PERF ORMED BY: [place] [address] PATHOLOGIST HOT SAW OPERATOR MAY HYDE M.D. Performed By: #### Vandana Cramer, BMP #### [address] Basophils/100 WBC (Bld) 0.8 % Normal . T lauren [facility] Comment on above: Performed By: #### Vandana Cramer, BMP #### [address] Eosinophils (Bld) [#/Vol] 0.1 10*3/uL Normal 0.0-0.45 The [facility] Comment on above: Performed By: #### Vandana Cramer, BMP #### [address] Eosinophils/100 WBC (Bld) 0.7 % Normal . [facility] Comment on above: Performed By: #### Vandana Cramer, BMP #### [address] Erythrocyte distribution width (RBC) [Ratio] 15.4 % High 11.9-15.3 The [facility] Comment on above: Performed By: #### M G, BMP #### [address] Hematocrit (Bld) [Volume fraction] 40.4 % Normal 34.0-46.4 The [facility] Comment on above: Performed By: #### M G, BMP #### [address] Hemoglobin (Bld) [Mass/Vol] 13.3 g/dL Normal 11.8-15.4 The [facility] Comment on above: Performed By: #### M G, BMP #### [address] Lymphocytes (Bld) [#/Vol] 1.4 10*3/uL Normal 1.00-4.8 The [facility] Comment on above: Performed By: #### Vandana G, BMP #### [address] Lymphocytes/100 WBC (Bld) 15.2 % Normal . [facility] Comment on above: Performed By: #### M G, BMP #### [address] MCH (RBC) [Entitic mass] 29.3 pg Normal 24.7-34.3 The [facility] Comment on above: Performed By: #### M G, BMP #### [address] MCV (RBC) [Entitic vol] 88.8 fL Normal 80-100 T he [facility] Comment on above: Performed By: #### M G, BMP #### [address] Mean Corpuscular HGB Conc 33.0 g/dL Normal 32.0-35.0 [facility] Comment on above: Performed By: #### M G, BMP #### [address] Monocytes (Bld) [#/Vol] 0.7 10*3/uL Normal 0.0-0.8 The [facility] Comment on above: Performed By: #### M G, BMP #### [facility] [address] [place] [address] [place] Monocytes/100 WBC (Bld) 7.2 % Normal . T [facility] Comment on above: Performed By: #### M G, BMP #### [facility] [address] [place] [address] [place] Neutrophils (Bld) [#/Vol] 7.0 10*3/uL Normal 1.8-7.7 The [facility] Comment on above: Performed By: #### M G, BMP #### [facility] [address] [place] [address] [place] Neutrophils/100 WBC (Bld) 76.1 % Normal . The [facility] Comment on above: Performed By: #### M G, BMP #### [facility] [address] [place] [address] [place] NRBC% 0.0 /100{WBC} Normal 0-0.5 The [facility] Comment on above: Performed By: #### M G, BMP #### [facility] [address] [place] [address] [place] Platelet mean volume (Bld) [Entitic vol] 9.5 fL Normal 6.3-10.7 The [facility] Comment on above: Performed By: #### M G, BMP #### [facility] [address] [place] [id number] [place] Platelets (Bld) [#/Vol] 183 10*3/uL Normal 150-450 [facility] Comment on above: Performed By: #### M G, BMP #### [facility] [address] [place] [id number] [place] RBC (Bld) [#/Vol] 4.55 10*6/uL Normal 3.60-5.00 The [facility] Comment on above: Performed By: #### M G, BMP #### [facility] [address] [place] [address] [place] WBC (Bld) [#/Vol] 9.2 10*3/uL Normal 3.8-11.6 The [facility] Comment on above: Performed By: #### Vandana Cramer, BMP #### [address] Comprehensive Metabolic Pane daniele 10-17-2024 Albumin [Mass/Vol] 3.5 g/dL Normal 3.5-5.7 The [facility] Comment on above: Performed By: #### Vandana Cramer, BMP #### [address] Albumin/Globulin [Mass ratio] 0.9 {ratio} Normal [facility] Comment on above: Performed By: #### Vandana Cramer, BMP #### [address] ALP [Catalytic activity/Vol] 99 U/L Normal 34-104 [facility] Comment on above: Performed By: #### Vandana Cramer, BMP #### [address] ALT [Catalytic activity/Vol] 42 U/L Normal 7-52 [facility] Comment on above: Performed By: #### Vandana Cramer, BMP #### [address] Anion gap [Moles/Vol] 14.7 mmol/L Normal 6.0-15.0 e [facility] Comment on above: Performed By: #### Vandana G, BMP #### [address] AST [Catalytic activity/Vol] 35 U/L Normal 13-39 [facility] Comment on above: Performed By: #### Vandana G, BMP #### [address] Bilirubin [Mass/Vol] 0.6 mg/dL Normal 0.3-1.0 The [facility] Comment on above: Performed By: #### Vandana G, BMP #### [address] Calcium [Mass/Vol] 9.6 mg/dL Normal 8.6-10.3 The [facility] Comment on above: Performed By: #### M G, BMP #### [facility] [address] [place] [address] [place] Chloride [Moles/Vol] 99 mmol/L Normal 98-107 The [facility] Comment on above: Performed By: #### M G, BMP #### [facility] [address] CO2 [Moles/Vol] 25.3 mmol/L Normal 21.0-31.0 The [facility] Comment on above: Performed By: #### M G, BMP #### [address] Creatinine [Mass/Vol] 1.99 mg/dL High 0.60-1.20 [facility] Comment on above: Performed By: #### M G, BMP #### [address] Creatinine Clr Calc Pharmacy 29.98 Normal [facility] Comment on above: Performed By: #### M G, BMP #### [address] Estimated GFR 25.252 mL/Min Normal The [facility] Comment on above: Performed By: #### M G, BMP #### [address] Globulin (S) [Mass/Vol] 3.9 g/dL Normal T he [facility] Comment on above: Performed By: #### M G, BMP #### [address] Glucose [Mass/Vol] 228 mg/dL High 70-100 The [facility] Comment on above: Result Comment: [place] Glucose Reference Range is dependent on time and content of last meal. Glucose of more than 200 mg/dL in a nonstressed, ambulatory subject supports the diagnosis of Diabetes Mellitus. ADA recommended reference range Performed By: #### M G, BMP #### [address] Potassium [Moles/Vol] 5.0 mmol/L Normal 3.5-5.1 The [facility] Comment on above: Performed By: #### M G, BMP #### [address] Protein [Mass/Vol] 7.4 g/dL Normal 6.4-8.9 The [facility] Comment on above: Performed By: #### M G, BMP #### [place] [address] [place] Sodium [Moles/Vol] 134 mmol/L Low 136-145 The [facility] Comment on above: Performed By: #### M G, BMP #### [address] Urea nitrogen [Mass/Vol] 67 mg/dL High 7-25 [facility] Comment on above: Performed By: #### M G, BMP #### [address] Glucose Poct Glucometerson 1 12-18-2023 Glucose [Mass/Vol] 245 mg/dL Normal The [facility] Comment on above: Result Comment: [facility] Glucose Reference Range is dependent on time and content of last meal. Glucose of more than 200 mg/dL in a nonstressed, ambulatory subject supports the diagnosis of Diabetes Mellitus. PERFORMED BY: [place] [address] PATHOLOGIST HOT SAW OPERATOR MAY HYDE M.D. Performed By: #### M G, BMP #### [address] Glucose [Mass/Vol] 335 mg/dL Normal The [facility] Comment on above: Result Comment: [facility] Glucose Reference Range is dependent on time and content of last meal. Glucose of more than 200 mg/dL in a nonstressed, ambulatory subject supports the diagnosis of Diabetes Mellitus. PERFORMED BY: [place] [address] PATHOLOGIST HOT SAW OPERATOR MAY HYDE M.D. Performed By: #### G LULS #### Point of Care testing , Glucose [Mass/Vol] 324 mg/dL Normal [facility] Comment on above: Result Comment: [facility] Glucose Reference Range is dependent on time and content of last meal. Glucose of more than 200 mg/dL in a nonstressed, ambulatory subject supports the diagnosis of Diabetes Mellitus. PERFORMED BY: [place] [address] PATHOLOGIST HOT SAW OPERATOR MAY HYDE M.D. Performed By: #### G LULS #### Point of Care testing , Glucose [Mass/Vol] 253 mg/dL Normal [facility] Comment on above: Result Comment: [facility] Glucose Reference Range is dependent on time and content of last meal. Glucose of more than 200 mg/dL in a nonstressed, ambulatory subject supports the diagnosis of Diabetes Mellitus. PERFORMED BY: [place] [address] PATHOLOGIST HOT SAW OPERATOR MAY HYDE M.D. Performed By: #### M Bela, BMP #### [address] Magnesiumon 10-17-2024 Magnesium [Mass/Vol] 1.6 mg/dL Low 1.9-2.7 The [facility] Comment on above: Result Comment: PERF ORMED BY: [place] [address] PATHOLOGIST HOT SAW OPERATOR MAY HYDE M.D. Performed By: #### M Bela, BMP #### [place] [id number] [facility] B-Type Natriuretic Peptideon 10-16-2024 Natriuretic peptide B (Bld) [Mass/Vol] 547.0 pg/mL High 5-100 The [facility] Comment on above: Result Comment: PERF ORMED BY: [place] [address] PATHOLOGIST HOT SAW OPERATOR MAY HYDE M.D. Performed By: #### M Bela, BMP #### [facility] [address] [place] [address] Basic Metabolic Panelon 12-0 Anion gap [Moles/Vol] 18.1 mmol/L High 6.0-15.0 Th e [facility] Comment on above: Performed By: #### G LULS #### Point of Care testing , Calcium [Mass/Vol] 9.7 mg/dL Significant change down 8.6-10.3 [facility] Comment on above: Performed By: #### G LULS #### Point of Care testing , Chloride [Moles/Vol] 100 mmol/L Normal 98-107 The [facility] Comment on above: Performed By: #### G LULS #### Point of Care testing , CO2 [Moles/Vol] 23.3 mmol/L Normal 21.0-31.0 The [facility] Comment on above: Performed By: #### G LULS #### Point of Care testing , Creatinine [Mass/Vol] 2.14 mg/dL High 0.60-1.20 The [facility] Comment on above: Performed By: #### G LULS #### Point of Care testing , Creatinine Clr Calc Pharmacy 27.88 Normal The [facility] Comment on above: Result Comment: PERF ORMED BY: [facility] [address] [place] [id number] PATHOLOGIST HOT SAW OPERATOR MAY HYDE M.D. Performed By: #### G LULS #### Point of Care testing , Estimated GFR 23.142 mL/Min Normal The [facility] Comment on above: Performed By: #### G LULS #### Point of Care testing , Glucose [Mass/Vol] 301 mg/dL High 70-100 The [facility] Comment on above: Result Comment: [place] Glucose Reference Range is dependent on time and content of last meal. Glucose of more than 200 mg/dL in a nonstressed, ambulatory subject supports the diagnosis of Diabetes Mellitus. ADA recommended reference range Performed By: #### G LULS #### Point of Care testing , Potassium [Moles/Vol] 6.4 mmol/L Off scale high 3.5-5.1 The [facility] Comment on above: Result Comment: Resu lts called at 1909 on 10/16/24 Critical Result Called to and read back by: ISMA AVILA/RENETTA at: 10/16/2024 19:04:24 by:[id number] Performed By: #### G LULS #### Point of Care testing , Sodium [Moles/Vol] 135 mmol/L Low 136-145 The [facility] Comment on above: Performed By: #### G LULS #### Point of Care testing , Urea nitrogen [Mass/Vol] 74 mg/dL High 7-25 [facility] Comment on above: Performed By: #### G LULS #### Point of Care testing , Anion gap [Moles/Vol] 13.8 mmol/L Normal 6.0-15.0 [facility] Comment on above: Performed By: #### M G, BMP #### [facility] [address] [place] [address] [place] Calcium [Mass/Vol] 8.1 mg/dL Low 8.6-10.3 [facility] Comment on above: Performed By: #### M G, BMP #### [facility] [address] [place] [id number] [place] Chloride [Moles/Vol] 104 mmol/L Normal 98-107 The [facility] Comment on above: Performed By: #### M G, BMP #### [facility] [address] [place] [address] [place] CO2 [Moles/Vol] 21.5 mmol/L Normal 21.0-31.0 The [facility] Comment on above: Performed By: #### M G, BMP #### [facility] [address] [place] [address] [place] Creatinine [Mass/Vol] 2.25 mg/dL High 0.60-1.20 The [facility] Comment on above: Performed By: #### M G, BMP #### [facility] [address] [place] [address] [place] Creatinine Clr Calc Pharmacy 5.50 Normal The [facility] Comment on above: Performed By: #### M G, BMP #### [address] Estimated GFR 21.792 mL/Min Normal The [facility] Comment on above: Performed By: #### Vandana Cramer, BMP #### [address] Glucose [Mass/Vol] 388 mg/dL High 70-100 The [facility] Comment on above: Result Comment: [place] Glucose Reference Range is dependent on time and content of last meal. Glucose of more than 200 mg/dL in a nonstressed, ambulatory subject supports the diagnosis of Diabetes Mellitus. ADA recommended reference range Performed By: #### Vandana Cramer, BMP #### [address] Potassium [Moles/Vol] 6.3 mmol/L Off scale high 3.5-5.1 [facility] Comment on above: Result Comment: Crit ical Result Called to and read back by: LYNN KLINE at: 10/16/2024 14:01:43 by:[id number] Performed By: #### Vandana Cramer, BMP #### [address] Sodium [Moles/Vol] 133 mmol/L Low 136-145 [facility] Comment on above: Performed By: #### Vandana Cramer, BMP #### [address] Urea nitrogen [Mass/Vol] 73 mg/dL High 7-25 [facility] Comment on above: Performed By: #### Vandana Cramer, BMP #### [address] Complete Blood Count Auto Di ffon 10-16-2024 Basophils (Bld) [#/Vol] 0.1 10*3/uL Normal 0.0-0.2 [facility] Comment on above: Result Comment: PERF ORMED BY: [place] [address] PATHOLOGIST HOT SAW OPERATOR MAY HYDE M.D. Performed By: #### Vandana Cramer, BMP #### [place] [id number] [place] Basophils/100 WBC (Bld) 0.7 % Normal . T lauren [facility] Comment on above: Performed By: #### Vandana Cramer, BMP #### [address] Eosinophils (Bld) [#/Vol] 0.1 10*3/uL Normal 0.0-0.45 The [facility] Comment on above: Performed By: #### Vandana Cramer, BMP #### [address] Eosinophils/100 WBC (Bld) 0.6 % Normal . [facility] Comment on above: Performed By: #### Vandana Cramer, BMP #### [address] Erythrocyte distribution width (RBC) [Ratio] 15.2 % Normal 11.9-15.3 [facility] Comment on above: Performed By: #### Vandana Cramer, BMP #### [address] Hematocrit (Bld) [Volume fraction] 35.5 % Normal 34.0-46.4 [facility] Comment on above: Performed By: #### Vandana Cramer, BMP #### [address] Hemoglobin (Bld) [Mass/Vol] 11.6 g/dL Low 11.8-15.4 [facility] Comment on above: Performed By: #### Vandana Cramer, BMP #### [address] Lymphocytes (Bld) [#/Vol] 1.2 10*3/uL Normal 1.00-4.8 [facility] Comment on above: Performed By: #### Vandana Cramer, BMP #### [address] Lymphocytes/100 WBC (Bld) 12.5 % Normal . [facility] Comment on above: Performed By: #### Vandana Cramer, BMP #### [address] MCH (RBC) [Entitic mass] 29.0 pg Normal 24.7-34.3 [facility] Comment on above: Performed By: #### Vandana G, BMP #### [address] MCV (RBC) [Entitic vol] 89.1 fL Normal 80-100 T [facility] Comment on above: Performed By: #### Vandana G, BMP #### [address] Mean Corpuscular HGB Conc 32.6 g/dL Normal 32.0-35.0 [facility] Comment on above: Performed By: #### Vandana Cramer, BMP #### [address] Monocytes (Bld) [#/Vol] 0.7 10*3/uL Normal 0.0-0.8 [facility] Comment on above: Performed By: #### Vandana Cramer, BMP #### [address] Monocytes/100 WBC (Bld) 18.11 % Normal 0.00-20.00 [facility] Comment on above: Performed By: #### Vandana Cramer, BMP #### [address] Monocytes/100 WBC (Bld) 6.8 % Normal . [facility] Comment on above: Performed By: #### Vandana G, BMP #### [address] Neutrophils (Bld) [#/Vol] 8.0 10*3/uL High 1.8-7.7 [facility] Comment on above: Performed By: #### Vandana G, BMP #### [address] Neutrophils/100 WBC (Bld) 79.4 % Normal . [facility] Comment on above: Performed By: #### Vandana G, BMP #### [address] NRBC% 0.1 /100{WBC} Normal 0-0.5 The [facility] Comment on above: Performed By: #### Vandana G, BMP #### [facility] [address] Platelet mean volume (Bld) [Entitic vol] 9.7 fL Normal 6.3-10.7 [facility] Comment on above: Performed By: #### M G, BMP #### [place] [id number] [facility] Platelets (Bld) [#/Vol] 181 10*3/uL Normal 150-450 [facility] Comment on above: Performed By: #### Vandana G, BMP #### [address] RBC (Bld) [#/Vol] 3.98 10*6/uL Normal 3.60-5.00 The [facility] Comment on above: Performed By: #### Vandana G, BMP #### [address] WBC (Bld) [#/Vol] 10.0 10*3/uL Normal 3.8-11.6 [facility] Comment on above: Performed By: #### Vandana G, BMP #### [address] Creatine Kinaseon 10-16-2024 CK [Catalytic activity/Vol] 37 U/L Normal 30-223 [facility] Comment on above: Performed By: #### Vandana G, BMP #### [place] [id number] [facility] ECG 12 lead ECGon 10-16-2024 ECG 12 lead ECG [facility] [place] [address] [place] [address] Electrocardiograph Report Signed Patient: Joe Call MR#: [id number] 0 : 1945 Acct:[id number] Age/Sex: 79 / F ADM Date: 10/16/24 Loc: Room: [address] [place] [address] Type: DIS IN Attending Dr: Kavin Escobar DO Ordering Provider: Mauri Chavira DO Date of Service: 10/16/2404/04/1714 ECG/ECG 12 lead ECG: routine / per protocol Copies to: Test Reason : Blood Pressure : 139/67 mmHG Vent. Rate : 70 BPM Atrial Rate : 70 BPM P-R Int : 194 ms QRS Dur : 104 ms QT Int : 404 ms P-R-T Axes : 73 61 17 degrees QTcB Int : 436 ms Sinus rhythm with premature ventricular complexes Possible Anterior infarct , age undetermined Abnormal ECG When compared with ECG of 16-Oct-2024 13:17, Sinus rhythm has replaced Electronic ventricular pacemaker Confirmed by FIONA MORENO MD ([id number]) on 10/23/2024 3:16:00 PM Referred By: Electronically Signed By: FIONA MORENO MD Transcribed By: MUS Signed By Fiona Moreno MD 1 12/24/23 1516 Normal [facility] ECG 12 lead ECG [facility] [place] [address] Electrocardiograph Report Signed Patient: Joe Call MR#: [id number] 0 : 1945 Acct:[id number] Age/Sex: 79 / F ADM Date: 10/16/24 Loc: Room: [address] [place] [address] Type: ADM IN Attending Dr: Mauri Chavira DO Ordering Provider: Jorge Luis Zavala DO Date of Service: 10/16/2404/04/1334 ECG/ECG 12 lead ECG: Nausea/Vomiting/Diarr hea Copies to: Test Reason : Blood Pressure : 142/63 mmHG Vent. Rate : 59 BPM Atrial Rate : 72 BPM P-R Int : * ms QRS Dur : 192 ms QT Int : 516 ms P-R-T Axes : * 263 85 degrees QTcB Int : 510 ms Ventricular-paced rhythm Right bundle branch block , plus right ventricular hypertrophy Left ventricular hypertrophy with repolarization abnormality Cannot rule out Anteroseptal infarct , age undetermined Abnormal ECG When compared with ECG of 16-Oct-2024 13:02, (Unconfirmed) Wide QRS rhythm has replaced Junctional rhythm Vent. rate has increased by 33 bpm Confirmed by JORGE LUIS ZAVALA DO ([id number]) on 10/16/2024 7:27:16 PM Referred By: Electronically Signed By: JORGE LUIS ZAVALA DO Transcribed By: KATT Signed By Jorge Luis Zavala DO 1925 Normal [facility] ECG 12 lead ECG [facility] Main [address] [address] Electrocardiograph Report Signed Patient: Joe Call MR#: [id number] 0 : 1945 Acct:[id number] Age/Sex: 79 / F ADM Date: 10/16/24 Loc: Room: [address] [place] [address] Type: ADM IN Attending Dr: Mauri Chavira DO Ordering Provider: Jorge Luis Zavala DO Date of Service: 10/16/2404/04/1322 ECG/ECG 12 lead ECG: Nausea/Vomiting/Diarr hea Copies to: Test Reason : Blood Pressure : 110/53 mmHG Vent. Rate : 26 BPM Atrial Rate : 26 BPM P-R Int : * ms QRS Dur : 90 ms QT Int : 498 ms P-R-T Axes : * 103 63 degrees QTcB Int : 327 ms Poor data quality, interpretation may be adversely affected Junctional bradycardia with premature ventricular complexes or fusion complexes Anterolateral infarct (cited on or before 12-Jun-2021) Abnormal ECG When compared with ECG of 22-May-2024 09:16, Junctional rhythm has replaced Sinus rhythm Vent. rate has decreased by 29 bpm Questionable change in initial forces of Lateral leads QT has shortened Confirmed by JORGE LUIS ZAVALA DO ([id number]) on 10/16/2024 7:27:05 PM Referred By: Electronically Signed By: JORGE LUIS ZAVALA DO Transcribed By: MUS Signed By Jorge Luis Zavala DO 1925 Normal [facility] Glucose Poct Glucometerson 1 12-17-2023 Glucose [Mass/Vol] 266 mg/dL Normal [facility] Comment on above: Result Comment: [facility] Glucose Reference Range is dependent on time and content of last meal. Glucose of more than 200 mg/dL in a nonstressed, ambulatory subject supports the diagnosis of Diabetes Mellitus. PERFORMED BY: [address] [address] PATHOLOGIST HOT SAW OPERATOR MAY HYDE M.D. Performed By: #### Vandana Cramer, BMP #### [place] [id number] [facility] Magnesiumon 10-16-2024 Magnesium [Mass/Vol] 1.4 mg/dL Low 1.9-2.7 [facility] Comment on above: Result Comment: PERF ORMED BY: [place] [address] PATHOLOGIST HOT SAW OPERATOR MAY HYDE M.D. Performed By: #### Vandana Cramer, BMP #### [place] [id number] [facility] Prothrombin Time INRon 10-16 INR Coag (PPP) [Relative time] 2.6 {INR} Normal [facility] Comment on above: Result Comment: INR Therapeutic Range A) Pre- and Peroperative OAT started two weeks before surgery. NOT HIP SURGERY: 1.5 - 2.5 HIP SURGERY: 2 - 3 B) Primary and secondary prevention of venous THROMBOSIS: 2 - 3 C) Active venous thrombosis, pulmonary embolism and prevention of recurrent venous thrombosis: 2 - 3 D) Prevention of arterial thromboembolism including patients with mechanical heart valves: 3 - 4.5 PERFORMED BY: [place] [address] PATHOLOGIST HOT SAW OPERATOR MAY HYDE M.D. Performed By: #### Vandana G, BMP #### [place] [id number] [facility] PT Coag (PPP) [Time] 28.9 s High 9.0-12.9 [facility] Comment on above: Result Comment: A he matocrit value greater than 55% may lead to inaccurate results in coagulation testing. Patients having hematocrit values >55% require a special collection tube for coagulation studies. Please contact the laboratory at [phone] for redraw instructions. Performed By: #### Vandana G, BMP #### [address] Troponin I High Sensitivityo n 10-16-2024 Troponin I High Sensitivity 9.9 pg/mL Normal 0.0-15.0 [facility] Comment on above: Result Comment: PERF ORMED BY: [place] [address] PATHOLOGIST HOT SAW OPERATOR MAY HYDE M.D. Performed By: #### KAREN Hansen #### [place] [id number] [facility] XR chest 1V portableon 10-16 XR chest 1V portable [facility] Main [place] [address] [place] [address] XRay Report Signed Patient: Joe Call MR#: [id number] 0 : 1945 Acct:[id number] Age/Sex: 79 / F ADM Date: 10/16/24 Loc: ER Room: Type: [facility] ER Attending Dr: Copies to: Jorge Luis Zavala DO Ordering Provider: Jorge Luis Zavala DO Date of Service: 10/16/24 XR/XR chest 1V portable: Nausea/Vomiting/Diarr hea Plain film chest Single view HISTORY: Nausea and vomiting. External pacemaker COMPARISON: None FINDINGS: SUPPORT DEVICES: None POSTSURGICAL CHANGES: Right IJ catheter. This may correspond with the external pacer. Potential identification of tip base of heart. Defibrillator pads present. HEART: Similar cardiomegaly PULMONARY ERIKA: Within normal limits MEDIASTINUM: Unremarkable LUNGS AND PLEURA: No acute lung process, pleural effusion or pneumothorax identified. Mild basilar atelectasis BONY STRUCTURES: Intact ADDITIONAL FINDINGS None XR/XR chest 1V portable IMPRESSION: No acute process. Cardiomegaly. Limited findings of external pacemaker. Impression dictated by: Jarred Randolph M.D.10/16/2024 2:10 PM Dictation Location: [place] [address] Transcribed By: [facility] 10/16/24 1410 Dictated By: Jarred Randolph DO 10/16/24 1407 Signed By: 10/16/24 1410 Normal [facility] 37on 10-08-2024 37 *Cut lisinopril in half to 10mg daily. *Follow-up labs in 2 weeks. *Limit fluid intake to 64oz or 2 liters a day. Normal [facility] 37on 09-03-2024 37 *Your kidney functio n worsened. Please hold your lasix for 2 days and resume on 09/06/24 and only take 40mg once a day in the morning. *Hold your lisinopril. *Have follow-up lab work in 1 week to recheck your kidney function. *Let cardiology know if you have any weight gain or worsening shortness of breath or worsening leg swelling. Normal [facility] Office Visiton 09-03-2024 Follow-up visit [id number] Joe Call 1945 Date Provider Department Center 09/03/2024 YAMEL OCAMPO Family History Problem Relation Age of Onset Coronary artery disease Other Diabetes Other Polycystic kidney disease Other Family Status - Relation Status Age at Other Level of Service:22305 IN OFFICE/OUTPATIENT ESTABLISHED MOD MDM 30 MIN Reason for Visit and Comments: Congestive Heart Failure [127] Atrial Fibrillation [80] Hypertension [552636] Normal [facility] Office Visiton 08-20-2024 Follow-up visit [id number] Joe Call 1945 [facility] Provider Department Center 08/20/2024 YAMEL OCAMPO Family History Problem Relation Age of Onset Coronary artery disease Other Diabetes Other Polycystic kidney disease Other Family Status - Relation Status Age at Other Level of Service:26562 IN OFFICE/OUTPATIENT ESTABLISHED MOD MDM 30 MIN Reason for Visit and Comments: Congestive Heart Failure [127] Normal [facility] Basophils Auto (Bld) [#/Vol] on 07-25-2024 Basophils (Bld) [#/Vol] 0.1 10 3/uL 0.0-0.1 [facility] Basophils/100 WBC Auto (Bld) on 07-25-2024 Basophils/100 WBC (Bld) 1.2 % 0.2-2.0 [facility] Eosinophils/100 WBC Auto (Bl d)on 07-25-2024 Eosinophils/100 WBC (Bld) 1.6 % 0.9-7.0 [facility] Erythrocyte distribution wid th Auto (RBC) [Ratio]on 07-25-2024 Erythrocyte distribution width (RBC) [Ratio] 13.7 % 11.0-15.0 [facility] Estimated glomerular filtrat ion rate (GFR) non- Americanon 07-25-2024 GFR/1.73 sq M.predicted among non-blacks MDRD (S/P/Bld) [Vol rate/Area] 47 mL/min/{1.73_m2} Low >=60 [facility] Globulin Calc (S) [Mass/Vol] on 07-25-2024 Globulin (S) [Mass/Vol] 4.7 g/dL [facility] Hematocrit Auto (Bld) [Volum e fraction]on 07-25-2024 Hematocrit (Bld) [Volume fraction] 33.6 % Low 36.0-48.0 [facility] Hemoglobin [Mass/volume] in Bloodon 07-25-2024 Hemoglobin (Bld) [Mass/Vol] 11.0 g/dL Low 12.0-16.0 [facility] Laboratory - Chemistry and C hemistry - challengeon 07-25-2024 Albumin [Mass/Vol] 2.3 g/dL Low 3.4-5.0 [facility] ALP [Catalytic activity/Vol] 101 U/L 46-116 [facility] ALT [Catalytic activity/Vol] 14 U/L 14-59 [facility] AST [Catalytic activity/Vol] 13 U/L Low 15-37 [facility] Bilirubin [Mass/Vol] 0.8 mg/dL 0.2-1.0 [facility] Calcium [Mass/Vol] 8.6 mg/dL 8.5-10.1 [facility] Chloride [Moles/Vol] 102 mmol/L 98-107 [facility] CO2 [Moles/Vol] 27.8 mmol/L 21.0-32.0 [facility] Creatinine [Mass/Vol] 1.13 mg/dL High 0.55-1.02 [facility] GFR/1.73 sq M.predicted MDRD (S/P/Bld) [Vol rate/Area] 56 mL/min/{1.73_m2} Low >=60 [facility] Glucose [Mass/Vol] 228 mg/dL High 74-106 [facility] Potassium [Moles/Vol] 3.7 mmol/L 3.5-5.1 [facility] Protein [Mass/Vol] 7.0 g/dL 6.4-8.2 [facility] Sodium [Moles/Vol] 140 mmol/L 136-145 [facility] Urea nitrogen [Mass/Vol] 26.0 mg/dL High 7.0-18.0 [facility] Urea nitrogen/Creatinine [Mass ratio] 23.0 mg/mg [facility] Laboratory - Hematology and Cell countson 07-25-2024 Immature granulocytes/100 WBC (Bld) 0.2 % 0.0-0.5 [facility] Leukocytes [#/volume] correc gali for nucleated erythrocytes in Blood by Automated counon 07-25-2024 WBC corrected for nucl RBC Auto (Bld) [#/Vol] 8.7 10 3/uL 4.0-11.0 [facility] Lymphocytes Auto (Bld) [#/Vo l]on 07-25-2024 Lymphocytes (Bld) [#/Vol] 1.4 10 3/uL 1.2-3.8 [facility] Lymphocytes/100 WBC Auto (Bl d)on 07-25-2024 Lymphocytes/100 WBC (Bld) 15.9 % Low 20.5-60.0 [facility] MCH Auto (RBC) [Entitic mass ]on 07-25-2024 MCH (RBC) [Entitic mass] 29.7 pg 26.7-34.0 [facility] MCHC Auto (RBC) [Mass/Vol]on 07-25-2024 MCHC (RBC) [Mass/Vol] 32.7 g/dL 29.9-35.2 [facility] MCV Auto (RBC) [Entitic vol] on 07-25-2024 MCV (RBC) [Entitic vol] 90.8 fL 81.0-99.0 [facility] Monocytes Auto (Bld) [#/Vol] on 07-25-2024 Monocytes (Bld) [#/Vol] 0.7 10 3/uL 0.3-0.8 [facility] Monocytes/100 WBC Auto (Bld) on 07-25-2024 Monocytes/100 WBC (Bld) 8.2 % 1.7-12.0 [facility] Neutrophils Auto (Bld) [#/Vo l]on 07-25-2024 Neutrophils (Bld) [#/Vol] 6.3 10 3/uL 1.4-6.5 [facility] Neutrophils/100 WBC Auto (Bl d)on 07-25-2024 Neutrophils/100 WBC (Bld) 72.9 % 43.0-75.0 [facility] No Panel Informationon 07-25 Eosinophils # (Auto) 0.1 10 3/uL 0.0-0.7 [facility] Immature Granulocyte # (Auto) 0.02 10 3/uL 0.00-0.03 [facility] Platelet mean volume Auto (B ld) [Entitic vol]on 07-25-2024 Platelet mean volume (Bld) [Entitic vol] 10.3 fL 9.5-13.5 [facility] Platelets Auto (Bld) [#/Vol] on 07-25-2024 Platelets (Bld) [#/Vol] 239 10 3/uL 150-450 [facility] RBC Auto (Bld) [#/Vol]on RBC (Bld) [#/Vol] 3.70 10 6/uL Low 4.20-5.40 [facility] Serum or plasma albumin/glob ulin mass ratioon 07-25-2024 Albumin/Globulin [Mass ratio] 0.5 {ratio} [facility] Serum or plasma anion gap de terminationon 07-25-2024 Anion gap [Moles/Vol] 13.9 mmol/[facility] Basophils Auto (Bld) [#/Vol] on 07-24-2024 Basophils (Bld) [#/Vol] 0.1 10 3/uL 0.0-0.1 [facility] Basophils/100 WBC Auto (Bld) on 07-24-2024 Basophils/100 WBC (Bld) 0.7 % 0.2-2.0 [facility] Eosinophils/100 WBC Auto (Bl d)on 07-24-2024 Eosinophils/100 WBC (Bld) 1.7 % 0.9-7.0 [facility] Erythrocyte distribution wid th Auto (RBC) [Ratio]on 07-24-2024 Erythrocyte distribution width (RBC) [Ratio] 13.7 % 11.0-15.0 [facility] Estimated glomerular filtrat ion rate (GFR) non- Americanon 07-24-2024 GFR/1.73 sq M.predicted among non-blacks MDRD (S/P/Bld) [Vol rate/Area] 48 mL/min/{1.73_m2} Low >=60 [facility] Hematocrit Auto (Bld) [Volum e fraction]on 07-24-2024 Hematocrit (Bld) [Volume fraction] 34.5 % Low 36.0-48.0 [facility] Hemoglobin [Mass/volume] in Bloodon 07-24-2024 Hemoglobin (Bld) [Mass/Vol] 11.2 g/dL Low 12.0-16.0 [facility] Laboratory - Chemistry and C hemistry - challengeon 07-24-2024 Calcium [Mass/Vol] 8.9 mg/dL 8.5-10.1 [facility] Chloride [Moles/Vol] 104 mmol/L 98-107 [facility] CO2 [Moles/Vol] 26.1 mmol/L 21.0-32.0 [facility] Creatinine [Mass/Vol] 1.11 mg/dL High 0.55-1.02 [facility] GFR/1.73 sq M.predicted MDRD (S/P/Bld) [Vol rate/Area] 58 mL/min/{1.73_m2} Low >=60 [facility] Glucose [Mass/Vol] 247 mg/dL High 74-106 [facility] Natriuretic peptide B (Bld) [Mass/Vol] 6277.0 pg/mL High <=1800.0 [facility] Comment on above: RESULTS CALLED TO YOEL STEWARD RN IN ER BY Mira Martinez at 1430 Potassium [Moles/Vol] 4.1 mmol/L 3.5-5.1 [facility] Sodium [Moles/Vol] 141 mmol/L 136-145 [facility] Urea nitrogen [Mass/Vol] 28.0 mg/dL High 7.0-18.0 [facility] Urea nitrogen/Creatinine [Mass ratio] 25.2 mg/mg [facility] Laboratory - Hematology and Cell countson 07-24-2024 Immature granulocytes/100 WBC (Bld) 0.3 % 0.0-0.5 [facility] Leukocytes [#/volume] correc gali for nucleated erythrocytes in Blood by Automated counon 07-24-2024 WBC corrected for nucl RBC Auto (Bld) [#/Vol] 9.7 10 3/uL 4.0-11.0 [facility] Lymphocytes Auto (Bld) [#/Vo l]on 07-24-2024 Lymphocytes (Bld) [#/Vol] 0.9 10 3/uL Low 1.2-3.8 [facility] Lymphocytes/100 WBC Auto (Bl d)on 07-24-2024 Lymphocytes/100 WBC (Bld) 9.2 % Low 20.5-60.0 [facility] MCH Auto (RBC) [Entitic mass ]on 07-24-2024 MCH (RBC) [Entitic mass] 29.9 pg 26.7-34.0 [facility] MCHC Auto (RBC) [Mass/Vol]on 07-24-2024 MCHC (RBC) [Mass/Vol] 32.5 g/dL 29.9-35.2 [facility] MCV Auto (RBC) [Entitic vol] on 07-24-2024 MCV (RBC) [Entitic vol] 92.0 fL 81.0-99.0 [facility] Monocytes Auto (Bld) [#/Vol] on 07-24-2024 Monocytes (Bld) [#/Vol] 0.5 10 3/uL 0.3-0.8 [facility] Monocytes/100 WBC Auto (Bld) on 07-24-2024 Monocytes/100 WBC (Bld) 5.3 % 1.7-12.0 [facility] Neutrophils Auto (Bld) [#/Vo l]on 07-24-2024 Neutrophils (Bld) [#/Vol] 8.0 10 3/uL High 1.4-6.5 [facility] Neutrophils/100 WBC Auto (Bl d)on 07-24-2024 Neutrophils/100 WBC (Bld) 82.8 % High 43.0-75.0 [facility] No Panel Informationon 07-24 Eosinophils # (Auto) 0.2 10 3/uL 0.0-0.7 [facility] Immature Granulocyte # (Auto) 0.03 10 3/uL 0.00-0.03 [facility] Troponin I High Sensitivity 20.5 pg/mL 4.0-51.3 [facility] Comment on above: CUT-OFF POINTS [...] volume (Bld) [Entitic vol] 10.4 fL 9.5-13.5 [facility] Platelets Auto (Bld) [#/Vol] on 07-24-2024 Platelets (Bld) [#/Vol] 236 10 3/uL 150-450 [facility] RBC Auto (Bld) [#/Vol]on RBC (Bld) [#/Vol] 3.75 10 6/uL Low 4.20-5.40 [facility] Serum or plasma anion gap de terminationon 07-24-2024 Anion gap [Moles/Vol] 15.0 mmol/L [facility] Urine Cultureon 07-17-2024 Bacteria identified Cx Nom (U) ORGANISM: Citrobacter freundii complex (O:CITFRC) [place] Count >100,000 ORGANISM: Proteus mirabilis (O:PROMIR) [place] Count 20,000 Aerobic MIRTHA Charge (NMIC56) ---- SUSCEPTIBILITY --- ORGANISM: O:CITFRC ANTIBIOTIC INTERPRETATION IMRTHA Amikacin S <16 Aztreonam IB <4 Cefepime [...] RESISTANT TO ALL B-LACTAM DRUGS. PERFORMED BY: [address] [place] [address] PATHOLOGIST HOT SAW OPERATOR CHOLO YEAGER M.D. Normal [facility] Comment on above: Performed By: #### M KAREN Cramer #### [facility] [address] Urine culture routineOrdered By: Shantel Steven on 07-17-2024 Bacteria identified Cx Nom (U) Proteus mirabilis Abnormal [facility] Erythrocyte distribution wid th Auto (RBC) [Ratio]on 07-15-2024 Erythrocyte distribution width (RBC) [Ratio] 13.3 % 11.0-15.0 [facility] Estimated glomerular filtrat ion rate (GFR) non- Americanon 07-15-2024 GFR/1.73 sq M.predicted among non-blacks MDRD (S/P/Bld) [Vol rate/Area] 47 mL/min/{1.73_m2} Low >=60 [facility] Globulin Calc (S) [Mass/Vol] on 07-15-2024 Globulin (S) [Mass/Vol] 4.2 g/dL [facility] Hematocrit Auto (Bld) [Volum e fraction]on 07-15-2024 Hematocrit (Bld) [Volume fraction] 34.9 % Low 36.0-48.0 [facility] Hemoglobin [Mass/volume] in Bloodon 07-15-2024 Hemoglobin (Bld) [Mass/Vol] 11.6 g/dL Low 12.0-16.0 [facility] Laboratory - Chemistry and C hemistry - challengeon 07-15-2024 Bilirubin Ql (U) Negative NEGATIVE [facility] Glucose (U) [Mass/Vol] Negative NEGATIVE [facility] Ketones Ql (U) Negative NEGATIVE [facility] pH (U) 6.5 [pH] 5.0-9.0 [facility] Specific gravity (U) [Rel density] 1.020 1.005-1.025 [facility] Urobilinogen Qn (U) 0.2 {Meka'U}/dL 0.2-1.0 [facility] Albumin [Mass/Vol] 2.6 g/dL Low 3.4-5.0 [facility] ALP [Catalytic activity/Vol] 87 U/L 46-116 [facility] ALT [Catalytic activity/Vol] 18 U/L 14-59 [facility] AST [Catalytic activity/Vol] 14 U/L Low 15-37 [facility] Bilirubin [Mass/Vol] 0.6 mg/dL 0.2-1.0 [facility] Calcium [Mass/Vol] 8.6 mg/dL 8.5-10.1 [facility] Chloride [Moles/Vol] 101 mmol/L 98-107 [facility] CO2 [Moles/Vol] 31.4 mmol/L 21.0-32.0 [facility] Creatinine [Mass/Vol] 1.12 mg/dL High 0.55-1.02 [facility] GFR/1.73 sq M.predicted MDRD (S/P/Bld) [Vol rate/Area] 57 mL/min/{1.73_m2} Low >=60 [facility] Glucose [Mass/Vol] 153 mg/dL High 74-106 [facility] Natriuretic peptide B (Bld) [Mass/Vol] 3410.0 pg/mL High <=1800.0 [facility] Comment on above: RESULTS CALLED TO Bogdan Robin RN at 0840 Potassium [Moles/Vol] 3.6 mmol/L 3.5-5.1 [facility] Protein [Mass/Vol] 6.8 g/dL 6.4-8.2 [facility] Sodium [Moles/Vol] 141 mmol/L 136-145 [facility] Urea nitrogen [Mass/Vol] 43.0 mg/dL High 7.0-18.0 [facility] Urea nitrogen/Creatinine [Mass ratio] 38.4 mg/mg [facility] Laboratory - Specimen inform ationon 07-15-2024 Appearance (U) CLEAR CLEAR [facility] Color (U) LT. YELLOW YELLOW [facility] Laboratory - Urinalysison Leukocyte esterase Test strip Ql (U) Negative NEGATIVE [facility] Mucus Ql (Urine sed) NONE SEEN NONE SEEN [facility] Nitrite Ql (U) Negative NEGATIVE [facility] Protein Ql (U) 100 mg/dL Abnormal NEG/TRACE [facility] Leukocytes [#/volume] correc gali for nucleated erythrocytes in Blood by Automated counon 07-15-2024 WBC corrected for nucl RBC Auto (Bld) [#/Vol] 8.5 10 3/uL 4.0-11.0 [facility] MCH Auto (RBC) [Entitic mass ]on 07-15-2024 MCH (RBC) [Entitic mass] 29.9 pg 26.7-34.0 [facility] MCHC Auto (RBC) [Mass/Vol]on 07-15-2024 MCHC (RBC) [Mass/Vol] 33.2 g/dL 29.9-35.2 [facility] MCV Auto (RBC) [Entitic vol] on 07-15-2024 MCV (RBC) [Entitic vol] 89.9 fL 81.0-99.0 [facility] No Panel Informationon 07-15 Urine Bacteria NONE SEEN #/HPF NONE SEEN [facility] Urine Occult Blood TRACE-I NEGATIVE [facility] Urine RBC 0-2 #/HPF 0-2 [facility] Urine Squamous Epithelial Cells FEW #/LPF Abnormal NONE/RARE [facility] Urine WBC NONE SEEN #/HPF NONE SEEN [facility] NONE SEEN #/HPF NONE SEEN [facility] Negative NEGATIVE [facility] TRACE-I NEGATIVE [facility] CLEAR CLEAR [facility] LT. YELLOW YELLOW [facility] NONE SEEN NONE SEEN [facility] 6.5 5.0-9.0 [facility] 100 mg/dL Abnormal NEG/TRACE [facility] 0-2 #/HPF 0-2 [facility] 1.020 1.005-1.025 [facility] FEW #/LPF Abnormal NONE/RARE [facility] 0.2 EU/dL 0.2-1.0 [facility] Troponin I High Sensitivity 21.3 pg/mL 4.0-51.3 [facility] Comment on above: CUT-OFF POINTS [...] AND CLINICAL INFORMATION. 3410.0 pg/mL High <=1800.0 [facility] 21.3 pg/mL 4.0-51.3 [facility] 2.6 g/dL Low 3.4-5.0 [facility] 87 U/L 46-116 [facility] 18 U/L 14-59 [facility] 14 U/L Low 15-37 [facility] 38.4 [facility] 43.0 mg/dL High 7.0-18.0 [facility] 8.6 mg/dL 8.5-10.1 [facility] 101 mmol/L 98-107 [facility] 31.4 mmol/L 21.0-32.0 [facility] 1.12 mg/dL High 0.55-1.02 [facility] 57 Low >=60 [facility] 153 mg/dL High 74-106 [facility] 3.6 mmol/L 3.5-5.1 [facility] 141 mmol/L 136-145 [facility] 0.6 mg/dL 0.2-1.0 [facility] 6.8 g/dL 6.4-8.2 [facility] Platelet mean volume Auto (B ld) [Entitic vol]on 07-15-2024 Platelet mean volume (Bld) [Entitic vol] 11.0 fL 9.5-13.5 [facility] Platelets Auto (Bld) [#/Vol] on 07-15-2024 Platelets (Bld) [#/Vol] 177 10 3/uL 150-450 [facility] RBC Auto (Bld) [#/Vol]on RBC (Bld) [#/Vol] 3.88 10 6/uL Low 4.20-5.40 [facility] Serum or plasma albumin/glob ulin mass ratioon 07-15-2024 Albumin/Globulin [Mass ratio] 0.6 {ratio} [facility] Serum or plasma anion gap de terminationon 07-15-2024 Anion gap [Moles/Vol] 12.2 mmol/L Fi [facility] Basophils Auto (Bld) [#/Vol] on 07-14-2024 Basophils (Bld) [#/Vol] 0.1 10 3/uL 0.0-0.1 [facility] Basophils/100 WBC Auto (Bld) on 07-14-2024 Basophils/100 WBC (Bld) 0.9 % 0.2-2.0 [facility] Eosinophils/100 WBC Auto (Bl d)on 07-14-2024 Eosinophils/100 WBC (Bld) 1.3 % 0.9-7.0 [facility] Erythrocyte distribution wid th Auto (RBC) [Ratio]on 07-14-2024 Erythrocyte distribution width (RBC) [Ratio] 13.5 % 11.0-15.0 [facility] Estimated glomerular filtrat ion rate (GFR) non- Americanon 07-14-2024 GFR/1.73 sq M.predicted among non-blacks MDRD (S/P/Bld) [Vol rate/Area] 30 mL/min/{1.73_m2} Low >=60 [facility] Hematocrit Auto (Bld) [Volum e fraction]on 07-14-2024 Hematocrit (Bld) [Volume fraction] 38.5 % 36.0-48.0 [facility] Hemoglobin [Mass/volume] in Bloodon 07-14-2024 Hemoglobin (Bld) [Mass/Vol] 12.8 g/dL 12.0-16.0 [facility] Laboratory - Chemistry and C hemistry - challengeon 07-14-2024 Calcium [Mass/Vol] 9.0 mg/dL 8.5-10.1 [facility] Chloride [Moles/Vol] 96 mmol/L Low 98-107 [facility] CO2 [Moles/Vol] 35.5 mmol/L High 21.0-32.0 [facility] Creatinine [Mass/Vol] 1.65 mg/dL High 0.55-1.02 [facility] GFR/1.73 sq M.predicted MDRD (S/P/Bld) [Vol rate/Area] 36 mL/min/{1.73_m2} Low >=60 [facility] Glucose [Mass/Vol] 458 mg/dL High 74-106 [facility] Potassium [Moles/Vol] 4.0 mmol/L 3.5-5.1 [facility] Sodium [Moles/Vol] 135 mmol/L Low 136-145 [facility] Urea nitrogen [Mass/Vol] 52.0 mg/dL High 7.0-18.0 [facility] Urea nitrogen/Creatinine [Mass ratio] 31.5 mg/mg [facility] Laboratory - Hematology and Cell countson 07-14-2024 Immature granulocytes/100 WBC (Bld) 0.1 % 0.0-0.5 [facility] Leukocytes [#/volume] correc gali for nucleated erythrocytes in Blood by Automated counon 07-14-2024 WBC corrected for nucl RBC Auto (Bld) [#/Vol] 8.2 10 3/uL 4.0-11.0 [facility] Lymphocytes Auto (Bld) [#/Vo l]on 07-14-2024 Lymphocytes (Bld) [#/Vol] 1.1 10 3/uL Low 1.2-3.8 [facility] Lymphocytes/100 WBC Auto (Bl d)on 07-14-2024 Lymphocytes/100 WBC (Bld) 13.7 % Low 20.5-60.0 [facility] MCH Auto (RBC) [Entitic mass ]on 07-14-2024 MCH (RBC) [Entitic mass] 30.0 pg 26.7-34.0 [facility] MCHC Auto (RBC) [Mass/Vol]on 07-14-2024 MCHC (RBC) [Mass/Vol] 33.2 g/dL 29.9-35.2 [facility] MCV Auto (RBC) [Entitic vol] on 07-14-2024 MCV (RBC) [Entitic vol] 90.2 fL 81.0-99.0 [facility] Monocytes Auto (Bld) [#/Vol] on 07-14-2024 Monocytes (Bld) [#/Vol] 0.5 10 3/uL 0.3-0.8 [facility] Monocytes/100 WBC Auto (Bld) on 07-14-2024 Monocytes/100 WBC (Bld) 6.6 % 1.7-12.0 [facility] Neutrophils Auto (Bld) [#/Vo l]on 07-14-2024 Neutrophils (Bld) [#/Vol] 6.3 10 3/uL 1.4-6.5 [facility] Neutrophils/100 WBC Auto (Bl d)on 07-14-2024 Neutrophils/100 WBC (Bld) 77.4 % High 43.0-75.0 [facility] No Panel Informationon 07-14 Eosinophils # (Auto) 0.1 10 3/uL 0.0-0.7 [facility] Immature Granulocyte # (Auto) 0.01 10 3/uL 0.00-0.03 [facility] Troponin I High Sensitivity 17.9 pg/mL 4.0-51.3 [facility] Comment on above: CUT-OFF POINTS [...] DIAGNOSTIC AND CLINICAL INFORMATION. 17.9 pg/mL 4.0-51.3 [facility] 31.5 [facility] 0.1 10 3/uL 0.0-0.7 [facility] 52.0 mg/dL High 7.0-18.0 [facility] 9.0 mg/dL 8.5-10.1 [facility] 96 mmol/L Low 98-107 [facility] 35.5 mmol/L High 21.0-32.0 [facility] 0.01 10 3/uL 0.00-0.03 [facility] 1.65 mg/dL High 0.55-1.02 [facility] 0.1 % 0.0-0.5 [facility] 36 Low >=60 [facility] 458 mg/dL High 74-106 [facility] 4.0 mmol/L 3.5-5.1 [facility] 135 mmol/L Low 136-145 [facility] Platelet mean volume Auto (B ld) [Entitic vol]on 07-14-2024 Platelet mean volume (Bld) [Entitic vol] 11.0 fL 9.5-13.5 [facility] Platelets Auto (Bld) [#/Vol] on 07-14-2024 Platelets (Bld) [#/Vol] 182 10 3/uL 150-450 [facility] RBC Auto (Bld) [#/Vol]on RBC (Bld) [#/Vol] 4.27 10 6/uL 4.20-5.40 [facility] Serum or plasma anion gap de terminationon 07-14-2024 Anion gap [Moles/Vol] 7.5 mmol/L [facility] 36on 07-01-2024 36 Regarding lab result s from 06/24/2024: MD Brooke Onofre MA Can you please check with her how she is doing on the Bumex. If she has lost weight and responded well then she can reduce it to once daily and take an extra pill if needed for increased swelling and weight gain. LM for patient to return my call. Normal [facility] Estimated glomerular filtrat ion rate (GFR) non- Americanon 06-24-2024 GFR/1.73 sq M.predicted among non-blacks MDRD (S/P/Bld) [Vol rate/Area] 38 mL/min/{1.73_m2} Low >=60 [facility] Laboratory - Chemistry and C hemistry - challengeon 06-24-2024 Calcium [Mass/Vol] 8.4 mg/dL Low 8.5-10.1 [facility] Chloride [Moles/Vol] 100 mmol/L 98-107 [facility] CO2 [Moles/Vol] 31.1 mmol/L 21.0-32.0 [facility] Creatinine [Mass/Vol] 1.34 mg/dL High 0.55-1.02 [facility] GFR/1.73 sq M.predicted MDRD (S/P/Bld) [Vol rate/Area] 46 mL/min/{1.73_m2} Low >=60 [facility] Glucose [Mass/Vol] 222 mg/dL High 74-106 [facility] Potassium [Moles/Vol] 3.6 mmol/L 3.5-5.1 [facility] Sodium [Moles/Vol] 138 mmol/L 136-145 [facility] Urea nitrogen [Mass/Vol] 32.0 mg/dL High 7.0-18.0 [facility] Urea nitrogen/Creatinine [Mass ratio] 23.9 mg/mg [facility] No Panel Informationon 06-24 23.9 [facility] 32.0 mg/dL High 7.0-18.0 [facility] 8.4 mg/dL Low 8.5-10.1 [facility] 100 mmol/L 98-107 [facility] 31.1 mmol/L 21.0-32.0 [facility] 1.34 mg/dL High 0.55-1.02 [facility] 46 Low >=60 [facility] 222 mg/dL High 74-106 [facility] 3.6 mmol/L 3.5-5.1 [facility] 138 mmol/L 136-145 [facility] Serum or plasma anion gap de terminationon 06-24-2024 Anion gap [Moles/Vol] 10.5 mmol/L [facility] Office Visiton 06-18-2024 Follow-up visit [id number] Joe Call 1945 F Date Provider Department Center 06/18/2024 RICA DEAN LOVE [place] Family History Problem Relation Age of Onset Coronary artery disease Other Diabetes Other Polycystic kidney disease Other Family Status - Relation Status Age at Other Level of Service:[id number] IN OFFICE/OUTPATIENT ESTABLISHED MOD MDM 30 MIN Normal [facility] Basophils Auto (Bld) [#/Vol] on 06-10-2024 Basophils (Bld) [#/Vol] 0.1 10 3/uL 0.0-0.1 [facility] Basophils/100 WBC Auto (Bld) on 06-10-2024 Basophils/100 WBC (Bld) 1.0 % 0.2-2.0 [facility] Eosinophils/100 WBC Auto (Bl d)on 06-10-2024 Eosinophils/100 WBC (Bld) 1.3 % 0.9-7.0 [facility] Erythrocyte distribution wid th Auto (RBC) [Ratio]on 06-10-2024 Erythrocyte distribution width (RBC) [Ratio] 14.6 % 11.0-15.0 [facility] Estimated glomerular filtrat ion rate (GFR) non- Americanon 06-10-2024 GFR/1.73 sq M.predicted among non-blacks MDRD (S/P/Bld) [Vol rate/Area] 54 mL/min/{1.73_m2} Low >=60 [facility] Globulin Calc (S) [Mass/Vol] on 06-10-2024 Globulin (S) [Mass/Vol] 4.5 g/dL [facility] Hematocrit Auto (Bld) [Volum e fraction]on 06-10-2024 Hematocrit (Bld) [Volume fraction] 36.8 % 36.0-48.0 [facility] Hemoglobin [Mass/volume] in Bloodon 06-10-2024 Hemoglobin (Bld) [Mass/Vol] 12.1 g/dL 12.0-16.0 [facility] Laboratory - Chemistry and C hemistry - challengeon 06-10-2024 Albumin [Mass/Vol] 2.4 g/dL Low 3.4-5.0 [facility] ALP [Catalytic activity/Vol] 94 U/L 46-116 [facility] ALT [Catalytic activity/Vol] 13 U/L Low 14-59 [facility] AST [Catalytic activity/Vol] 13 U/L Low 15-37 [facility] Bilirubin [Mass/Vol] 0.9 mg/dL 0.2-1.0 [facility] Calcium [Mass/Vol] 8.9 mg/dL 8.5-10.1 [facility] Chloride [Moles/Vol] 101 mmol/L 98-107 [facility] CO2 [Moles/Vol] 29.4 mmol/L 21.0-32.0 [facility] Creatinine [Mass/Vol] 1.00 mg/dL 0.55-1.02 [facility] GFR/1.73 sq M.predicted MDRD (S/P/Bld) [Vol rate/Area] mL/min/{1.73_m2} >=60 [facility] Glucose [Mass/Vol] 167 mg/dL High 74-106 [facility] Potassium [Moles/Vol] 3.4 mmol/L Low 3.5-5.1 [facility] Protein [Mass/Vol] 6.9 g/dL 6.4-8.2 [facility] Sodium [Moles/Vol] 136 mmol/L 136-145 [facility] Urea nitrogen [Mass/Vol] 24.0 mg/dL High 7.0-18.0 [facility] Urea nitrogen/Creatinine [Mass ratio] 24.0 mg/mg [facility] Laboratory - Hematology and Cell countson 06-10-2024 Immature granulocytes/100 WBC (Bld) 0.3 % 0.0-0.5 [facility] Leukocytes [#/volume] correc gali for nucleated erythrocytes in Blood by Automated counon 06-10-2024 WBC corrected for nucl RBC Auto (Bld) [#/Vol] 7.9 10 3/uL 4.0-11.0 [facility] Lymphocytes Auto (Bld) [#/Vo l]on 06-10-2024 Lymphocytes (Bld) [#/Vol] 1.3 10 3/uL 1.2-3.8 [facility] Lymphocytes/100 WBC Auto (Bl d)on 06-10-2024 Lymphocytes/100 WBC (Bld) 16.8 % Low 20.5-60.0 [facility] MCH Auto (RBC) [Entitic mass ]on 06-10-2024 MCH (RBC) [Entitic mass] 29.8 pg 26.7-34.0 [facility] MCHC Auto (RBC) [Mass/Vol]on 06-10-2024 MCHC (RBC) [Mass/Vol] 32.9 g/dL 29.9-35.2 [facility] MCV Auto (RBC) [Entitic vol] on 06-10-2024 MCV (RBC) [Entitic vol] 90.6 fL 81.0-99.0 [facility] Monocytes Auto (Bld) [#/Vol] on 06-10-2024 Monocytes (Bld) [#/Vol] 0.8 10 3/uL 0.3-0.8 [facility] Monocytes/100 WBC Auto (Bld) on 06-10-2024 Monocytes/100 WBC (Bld) 9.8 % 1.7-12.0 [facility] Neutrophils Auto (Bld) [#/Vo l]on 06-10-2024 Neutrophils (Bld) [#/Vol] 5.6 10 3/uL 1.4-6.5 [facility] Neutrophils/100 WBC Auto (Bl d)on 06-10-2024 Neutrophils/100 WBC (Bld) 70.8 % 43.0-75.0 [facility] No Panel Informationon 06-10 Eosinophils # (Auto) 0.1 10 3/uL 0.0-0.7 [facility] Immature Granulocyte # (Auto) 0.02 10 3/uL 0.00-0.03 [facility] 2.4 g/dL Low 3.4-5.0 [facility] 0.1 10 3/uL 0.0-0.7 [facility] 94 U/L 46-116 [facility] 13 U/L Low 15-37 [facility] 24.0 [facility] 0.02 10 3/uL 0.00-0.03 [facility] 24.0 mg/dL High 7.0-18.0 [facility] 0.3 % 0.0-0.5 [facility] 8.9 mg/dL 8.5-10.1 [facility] 101 mmol/L 98-107 [facility] 29.4 mmol/L 21.0-32.0 [facility] 1.00 mg/dL 0.55-1.02 [facility] >60 >=60 [facility] 167 mg/dL High 74-106 [facility] 3.4 mmol/L Low 3.5-5.1 [facility] 136 mmol/L 136-145 [facility] 0.9 mg/dL 0.2-1.0 [facility] 6.9 g/dL 6.4-8.2 [facility] Platelet mean volume Auto (B ld) [Entitic vol]on 06-10-2024 Platelet mean volume (Bld) [Entitic vol] 11.2 fL 9.5-13.5 [facility] Platelets Auto (Bld) [#/Vol] on 06-10-2024 Platelets (Bld) [#/Vol] 189 10 3/uL 150-450 [facility] RBC Auto (Bld) [#/Vol]on RBC (Bld) [#/Vol] 4.06 10 6/uL Low 4.20-5.40 [facility] Serum or plasma albumin/glob ulin mass ratioon 06-10-2024 Albumin/Globulin [Mass ratio] 0.5 {ratio} [facility] Serum or plasma anion gap de terminationon 06-10-2024 Anion gap [Moles/Vol] 9.0 mmol/L [facility] Basophils Auto (Bld) [#/Vol] on 06-09-2024 Basophils (Bld) [#/Vol] 0.1 10 3/uL 0.0-0.1 [facility] Basophils/100 WBC Auto (Bld) on 06-09-2024 Basophils/100 WBC (Bld) 1.0 % 0.2-2.0 [facility] Eosinophils/100 WBC Auto (Bl d)on 06-09-2024 Eosinophils/100 WBC (Bld) 1.5 % 0.9-7.0 [facility] Erythrocyte distribution wid th Auto (RBC) [Ratio]on 06-09-2024 Erythrocyte distribution width (RBC) [Ratio] 14.8 % 11.0-15.0 [facility] Estimated glomerular filtrat ion rate (GFR) non- Americanon 06-09-2024 GFR/1.73 sq M.predicted among non-blacks MDRD (S/P/Bld) [Vol rate/Area] mL/min/{1.73_m2} >=60 [facility] Fibrin D-dimer [Presence] in Platelet poor plasma by Latex agglutinationon 06-09-2024 Fibrin D-dimer LA Ql (PPP) 0.39 mg/L FEU <=0.59 [facility] Comment on above: Increases in [...] 06-09-2024 Globulin (S) [Mass/Vol] 4.8 g/dL [facility] Hematocrit Auto (Bld) [Volum e fraction]on 06-09-2024 Hematocrit (Bld) [Volume fraction] 37.7 % 36.0-48.0 [facility] Hemoglobin [Mass/volume] in Bloodon 06-09-2024 Hemoglobin (Bld) [Mass/Vol] 12.5 g/dL 12.0-16.0 [facility] Laboratory - Chemistry and C hemistry - challengeon 06-09-2024 Albumin [Mass/Vol] 2.5 g/dL Low 3.4-5.0 [facility] ALP [Catalytic activity/Vol] 86 U/L 46-116 [facility] ALT [Catalytic activity/Vol] 18 U/L 14-59 [facility] AST [Catalytic activity/Vol] 34 U/L 15-37 [facility] Bilirubin [Mass/Vol] 0.8 mg/dL 0.2-1.0 [facility] Calcium [Mass/Vol] 8.6 mg/dL 8.5-10.1 [facility] Chloride [Moles/Vol] 103 mmol/L 98-107 [facility] CO2 [Moles/Vol] 27.1 mmol/L 21.0-32.0 [facility] Creatinine [Mass/Vol] 0.88 mg/dL 0.55-1.02 [facility] GFR/1.73 sq M.predicted MDRD (S/P/Bld) [Vol rate/Area] mL/min/{1.73_m2} >=60 [facility] Glucose [Mass/Vol] 142 mg/dL High 74-106 [facility] Lipase [Catalytic activity/Vol] 45.0 U/L 16.0-77.0 [facility] Natriuretic peptide B (Bld) [Mass/Vol] 3488.0 pg/mL High <=1800.0 [facility] Comment on above: RESULTS CALLED TO MAIDA MCGOWAN RN @BY Alla Kevin [id number] Potassium [Moles/Vol] 5.0 mmol/L 3.5-5.1 [facility] Protein [Mass/Vol] 7.3 g/dL 6.4-8.2 [facility] Sodium [Moles/Vol] 135 mmol/L Low 136-145 [facility] Urea nitrogen [Mass/Vol] 28.0 mg/dL High 7.0-18.0 [facility] Urea nitrogen/Creatinine [Mass ratio] 31.8 mg/mg [facility] Laboratory - Hematology and Cell countson 06-09-2024 Immature granulocytes/100 WBC (Bld) 0.3 % 0.0-0.5 [facility] Laboratory - Microbiology an d Antimicrobial susceptibilityon 06-09-2024 SARS-CoV-2 (COVID-19) RNA FERN+probe Ql (Unsp spec) Negative NEGATIVE [facility] Comment on above: This test [...] (Bld) [#/Vol] 8.9 10 3/uL 4.0-11.0 [facility] Lymphocytes Auto (Bld) [#/Vo l]on 06-09-2024 Lymphocytes (Bld) [#/Vol] 1.3 10 3/uL 1.2-3.8 [facility] Lymphocytes/100 WBC Auto (Bl d)on 06-09-2024 Lymphocytes/100 WBC (Bld) 15.1 % Low 20.5-60.0 [facility] MCH Auto (RBC) [Entitic mass ]on 06-09-2024 MCH (RBC) [Entitic mass] 30.3 pg 26.7-34.0 [facility] MCHC Auto (RBC) [Mass/Vol]on 06-09-2024 MCHC (RBC) [Mass/Vol] 33.2 g/dL 29.9-35.2 [facility] MCV Auto (RBC) [Entitic vol] on 06-09-2024 MCV (RBC) [Entitic vol] 91.5 fL 81.0-99.0 [facility] Monocytes Auto (Bld) [#/Vol] on 06-09-2024 Monocytes (Bld) [#/Vol] 0.7 10 3/uL 0.3-0.8 [facility] Monocytes/100 WBC Auto (Bld) on 06-09-2024 Monocytes/100 WBC (Bld) 7.9 % 1.7-12.0 [facility] Neutrophils Auto (Bld) [#/Vo l]on 06-09-2024 Neutrophils (Bld) [#/Vol] 6.6 10 3/uL High 1.4-6.5 [facility] Neutrophils/100 WBC Auto (Bl d)on 06-09-2024 Neutrophils/100 WBC (Bld) 74.2 % 43.0-75.0 [facility] No Panel Informationon 06-09 Negative NEGATIVE [facility] Eosinophils # (Auto) 0.1 10 3/uL 0.0-0.7 [facility] Immature Granulocyte # (Auto) 0.03 10 3/uL 0.00-0.03 [facility] Troponin I High Sensitivity 17.0 pg/mL 4.0-51.3 [facility] Comment on above: CUT-OFF POINTS [...] CLINICAL INFORMATION. 3488.0 pg/mL High <=1800.0 [facility] 45.0 U/L 16.0-77.0 [facility] 17.0 pg/mL 4.0-51.3 [facility] 2.5 g/dL Low 3.4-5.0 [facility] 0.1 10 3/uL 0.0-0.7 [facility] 86 U/L 46-116 [facility] 18 U/L 14-59 [facility] 34 U/L 15-37 [facility] 31.8 [facility] 0.03 10 3/uL 0.00-0.03 [facility] 28.0 mg/dL High 7.0-18.0 [facility] 0.3 % 0.0-0.5 [facility] 8.6 mg/dL 8.5-10.1 [facility] 103 mmol/L 98-107 [facility] 27.1 mmol/L 21.0-32.0 [facility] 0.88 mg/dL 0.55-1.02 [facility] >60 >=60 [facility] 142 mg/dL High 74-106 [facility] 5.0 mmol/L 3.5-5.1 [facility] 135 mmol/L Low 136-145 [facility] 0.8 mg/dL 0.2-1.0 [facility] 7.3 g/dL 6.4-8.2 [facility] Platelet mean volume Auto (B ld) [Entitic vol]on 06-09-2024 Platelet mean volume (Bld) [Entitic vol] 12.4 fL 9.5-13.5 [facility] Platelets Auto (Bld) [#/Vol] on 06-09-2024 Platelets (Bld) [#/Vol] 205 10 3/uL 150-450 [facility] RBC Auto (Bld) [#/Vol]on RBC (Bld) [#/Vol] 4.12 10 6/uL Low 4.20-5.40 [facility] Serum or plasma albumin/glob ulin mass ratioon 06-09-2024 Albumin/Globulin [Mass ratio] 0.5 {ratio} [facility] Serum or plasma anion gap de terminationon 06-09-2024 Anion gap [Moles/Vol] 9.9 mmol/L [facility] Basophils Auto (Bld) [#/Vol] on 06-01-2024 Basophils (Bld) [#/Vol] 0.1 10 3/uL 0.0-0.1 [facility] Basophils/100 WBC Auto (Bld) on 06-01-2024 Basophils/100 WBC (Bld) 0.9 % 0.2-2.0 [facility] Eosinophils/100 WBC Auto (Bl d)on 06-01-2024 Eosinophils/100 WBC (Bld) 1.2 % 0.9-7.0 [facility] Erythrocyte distribution wid th Auto (RBC) [Ratio]on 06-01-2024 Erythrocyte distribution width (RBC) [Ratio] 14.1 % 11.0-15.0 [facility] Estimated glomerular filtrat ion rate (GFR) non- Americanon 06-01-2024 GFR/1.73 sq M.predicted among non-blacks MDRD (S/P/Bld) [Vol rate/Area] 47 mL/min/{1.73_m2} Low >=60 [facility] Globulin Calc (S) [Mass/Vol] on 06-01-2024 Globulin (S) [Mass/Vol] 4.4 g/dL [facility] Hematocrit Auto (Bld) [Volum e fraction]on 06-01-2024 Hematocrit (Bld) [Volume fraction] 37.6 % 36.0-48.0 [facility] Hemoglobin [Mass/volume] in Bloodon 06-01-2024 Hemoglobin (Bld) [Mass/Vol] 12.5 g/dL 12.0-16.0 [facility] Laboratory - Chemistry and C hemistry - challengeon 06-01-2024 Albumin [Mass/Vol] 2.7 g/dL Low 3.4-5.0 [facility] ALP [Catalytic activity/Vol] 87 U/L 46-116 [facility] ALT [Catalytic activity/Vol] 18 U/L 14-59 [facility] AST [Catalytic activity/Vol] 16 U/L 15-37 [facility] Bilirubin [Mass/Vol] 0.5 mg/dL 0.2-1.0 [facility] Calcium [Mass/Vol] 8.7 mg/dL 8.5-10.1 [facility] Chloride [Moles/Vol] 101 mmol/L 98-107 [facility] CO2 [Moles/Vol] 28.9 mmol/L 21.0-32.0 [facility] Creatinine [Mass/Vol] 1.12 mg/dL High 0.55-1.02 [facility] GFR/1.73 sq M.predicted MDRD (S/P/Bld) [Vol rate/Area] 57 mL/min/{1.73_m2} Low >=60 [facility] Glucose [Mass/Vol] 232 mg/dL High 74-106 [facility] Potassium [Moles/Vol] 4.1 mmol/L 3.5-5.1 [facility] Protein [Mass/Vol] 7.1 g/dL 6.4-8.2 [facility] Sodium [Moles/Vol] 137 mmol/L 136-145 [facility] Urea nitrogen [Mass/Vol] 23.0 mg/dL High 7.0-18.0 [facility] Urea nitrogen/Creatinine [Mass ratio] 20.5 mg/mg [facility] Laboratory - Hematology and Cell countson 06-01-2024 Immature granulocytes/100 WBC (Bld) 0.2 % 0.0-0.5 [facility] Leukocytes [#/volume] correc gali for nucleated erythrocytes in Blood by Automated counon 06-01-2024 WBC corrected for nucl RBC Auto (Bld) [#/Vol] 9.0 10 3/uL 4.0-11.0 [facility] Lymphocytes Auto (Bld) [#/Vo l]on 06-01-2024 Lymphocytes (Bld) [#/Vol] 1.4 10 3/uL 1.2-3.8 [facility] Lymphocytes/100 WBC Auto (Bl d)on 06-01-2024 Lymphocytes/100 WBC (Bld) 15.9 % Low 20.5-60.0 [facility] MCH Auto (RBC) [Entitic mass ]on 06-01-2024 MCH (RBC) [Entitic mass] 29.5 pg 26.7-34.0 [facility] MCHC Auto (RBC) [Mass/Vol]on 06-01-2024 MCHC (RBC) [Mass/Vol] 33.2 g/dL 29.9-35.2 [facility] MCV Auto (RBC) [Entitic vol] on 06-01-2024 MCV (RBC) [Entitic vol] 88.7 fL 81.0-99.0 [facility] Monocytes Auto (Bld) [#/Vol] on 06-01-2024 Monocytes (Bld) [#/Vol] 0.8 10 3/uL 0.3-0.8 [facility] Monocytes/100 WBC Auto (Bld) on 06-01-2024 Monocytes/100 WBC (Bld) 8.5 % 1.7-12.0 [facility] Neutrophils Auto (Bld) [#/Vo l]on 06-01-2024 Neutrophils (Bld) [#/Vol] 6.6 10 3/uL High 1.4-6.5 [facility] Neutrophils/100 WBC Auto (Bl d)on 06-01-2024 Neutrophils/100 WBC (Bld) 73.3 % 43.0-75.0 [facility] No Panel Informationon 06-01 Eosinophils # (Auto) 0.1 10 3/uL 0.0-0.7 [facility] Immature Granulocyte # (Auto) 0.02 10 3/uL 0.00-0.03 [facility] 2.7 g/dL Low 3.4-5.0 [facility] 0.1 10 3/uL 0.0-0.7 [facility] 87 U/L 46-116 [facility] 18 U/L 14-59 [facility] 16 U/L 15-37 [facility] 20.5 [facility] 0.02 10 3/uL 0.00-0.03 [facility] 23.0 mg/dL High 7.0-18.0 [facility] 0.2 % 0.0-0.5 [facility] 8.7 mg/dL 8.5-10.1 [facility] 101 mmol/L 98-107 [facility] 28.9 mmol/L 21.0-32.0 [facility] 1.12 mg/dL High 0.55-1.02 [facility] 57 Low >=60 [facility] 232 mg/dL High 74-106 [facility] 4.1 mmol/L 3.5-5.1 [facility] 137 mmol/L 136-145 [facility] 0.5 mg/dL 0.2-1.0 [facility] 7.1 g/dL 6.4-8.2 [facility] Platelet mean volume Auto (B ld) [Entitic vol]on 06-01-2024 Platelet mean volume (Bld) [Entitic vol] 11.1 fL 9.5-13.5 [facility] Platelets Auto (Bld) [#/Vol] on 06-01-2024 Platelets (Bld) [#/Vol] 162 10 3/uL 150-450 [facility] RBC Auto (Bld) [#/Vol]on RBC (Bld) [#/Vol] 4.24 10 6/uL 4.20-5.40 [facility] Serum or plasma albumin/glob ulin mass ratioon 06-01-2024 Albumin/Globulin [Mass ratio] 0.6 {ratio} [facility] Serum or plasma anion gap de terminationon 06-01-2024 Anion gap [Moles/Vol] 11.2 mmol/[facility] Basophils Auto (Bld) [#/Vol] on 05-26-2024 Basophils (Bld) [#/Vol] 0.1 10 3/uL 0.0-0.1 [facility] Basophils/100 WBC Auto (Bld) on 05-26-2024 Basophils/100 WBC (Bld) 1.1 % 0.2-2.0 [facility] Eosinophils/100 WBC Auto (Bl d)on 05-26-2024 Eosinophils/100 WBC (Bld) 2.1 % 0.9-7.0 [facility] Erythrocyte distribution wid th Auto (RBC) [Ratio]on 05-26-2024 Erythrocyte distribution width (RBC) [Ratio] 14.0 % 11.0-15.0 [facility] Estimated glomerular filtrat ion rate (GFR) non- Americanon 05-26-2024 GFR/1.73 sq M.predicted among non-blacks MDRD (S/P/Bld) [Vol rate/Area] 40 mL/min/{1.73_m2} Low >=60 [facility] Globulin Calc (S) [Mass/Vol] on 05-26-2024 Globulin (S) [Mass/Vol] 4.4 g/dL [facility] Hematocrit Auto (Bld) [Volum e fraction]on 05-26-2024 Hematocrit (Bld) [Volume fraction] 35.9 % Low 36.0-48.0 [facility] Hemoglobin [Mass/volume] in Bloodon 05-26-2024 Hemoglobin (Bld) [Mass/Vol] 12.0 g/dL 12.0-16.0 [facility] Laboratory - Chemistry and C hemistry - challengeon 05-26-2024 Albumin [Mass/Vol] 2.7 g/dL Low 3.4-5.0 [facility] ALP [Catalytic activity/Vol] 88 U/L 46-116 [facility] ALT [Catalytic activity/Vol] 20 U/L 14-59 [facility] AST [Catalytic activity/Vol] 12 U/L Low 15-37 [facility] Bilirubin [Mass/Vol] 0.5 mg/dL 0.2-1.0 [facility] Calcium [Mass/Vol] 8.9 mg/dL 8.5-10.1 [facility] Chloride [Moles/Vol] 104 mmol/L 98-107 [facility] CO2 [Moles/Vol] 26.7 mmol/L 21.0-32.0 [facility] Creatinine [Mass/Vol] 1.29 mg/dL High 0.55-1.02 [facility] Free T4 [Mass/Vol] 1.19 ng/dL 0.76-1.46 [facility] GFR/1.73 sq M.predicted MDRD (S/P/Bld) [Vol rate/Area] 49 mL/min/{1.73_m2} Low >=60 [facility] Glucose [Mass/Vol] 233 mg/dL High 74-106 [facility] Natriuretic peptide B (Bld) [Mass/Vol] 2687.0 pg/mL High <=1800.0 [facility] Comment on above: RESULTS CALLED TO DR Miranda HENNING IN ER BY Mira Edwards [id number] Potassium [Moles/Vol] 4.0 mmol/L 3.5-5.1 [facility] Protein [Mass/Vol] 7.1 g/dL 6.4-8.2 [facility] Sodium [Moles/Vol] 140 mmol/L 136-145 [facility] TSH Qn 4.487 m[IU]/L High 0.358-3.740 [facility] Urea nitrogen [Mass/Vol] 33.0 mg/dL High 7.0-18.0 [facility] Urea nitrogen/Creatinine [Mass ratio] 25.6 mg/mg [facility] Laboratory - Hematology and Cell countson 05-26-2024 Immature granulocytes/100 WBC (Bld) 0.1 % 0.0-0.5 [facility] Laboratory - Microbiology an d Antimicrobial susceptibilityon 05-26-2024 S. pyogenes Ag Ql (Unsp spec) Negative [facility] SARS-CoV-2 (COVID-19) RNA FERN+probe Ql (Unsp spec) Not detected NOT DETECTE [facility] Comment on above: THIS TEST IS NOT PEREZ ROVDED BY THE FDA. It has beenauthorized for use under an Emergency Use Authorization. SARS-CoV-2 (COVID-19) RNA FERN+probe Ql (Unsp spec) See comment NOT DETECTE [facility] Comment on above: COVID AG PERFORMED-- - 06/06/24 1120 ---SARS-CoV-2 FERN previously reported as: NOT DETECTEDTHIS TEST IS NOT APPROVDED BY THE FDA. It has beenauthorized for use under an Emergency Use Authorization. SARS-CoV-2 (COVID-19) RNA FERN+probe Ql (Unsp spec) Negative NEGATIVE [facility] Comment on above: This test [...] (Bld) [#/Vol] 7.3 10 3/uL 4.0-11.0 [facility] Lymphocytes Auto (Bld) [#/Vo l]on 05-26-2024 Lymphocytes (Bld) [#/Vol] 1.3 10 3/uL 1.2-3.8 [facility] Lymphocytes/100 WBC Auto (Bl d)on 07-15-2024 Lymphocytes/100 WBC (Bld) 18.4 % Low 20.5-60.0 [facility] MCH Auto (RBC) [Entitic mass ]on 05-26-2024 MCH (RBC) [Entitic mass] 30.4 pg 26.7-34.0 [facility] MCHC Auto (RBC) [Mass/Vol]on 05-26-2024 MCHC (RBC) [Mass/Vol] 33.4 g/dL 29.9-35.2 [facility] MCV Auto (RBC) [Entitic vol] on 05-26-2024 MCV (RBC) [Entitic vol] 90.9 fL 81.0-99.0 [facility] Monocytes Auto (Bld) [#/Vol] on 05-26-2024 Monocytes (Bld) [#/Vol] 0.7 10 3/uL 0.3-0.8 [facility] Monocytes/100 WBC Auto (Bld) on 05-26-2024 Monocytes/100 WBC (Bld) 9.5 % 1.7-12.0 [facility] Neutrophils Auto (Bld) [#/Vo l]on 05-26-2024 Neutrophils (Bld) [#/Vol] 5.0 10 3/uL 1.4-6.5 [facility] Neutrophils/100 WBC Auto (Bl d)on 05-26-2024 Neutrophils/100 WBC (Bld) 68.8 % 43.0-75.0 [facility] No Panel Informationon 05-26 See comment NOT DETECTE [facility] Negative [facility] Eosinophils # (Auto) 0.2 10 3/uL 0.0-0.7 [facility] Immature Granulocyte # (Auto) 0.01 10 3/uL 0.00-0.03 [facility] Monoscreen Negative NEGATIVE [facility] Troponin I High Sensitivity 14.9 pg/mL 4.0-51.3 [facility] Comment on above: CUT-OFF POINTS [...] AND CLINICAL INFORMATION. 1.19 ng/dL 0.76-1.46 [facility] 2687.0 pg/mL High <=1800.0 [facility] 14.9 pg/mL 4.0-51.3 [facility] 4.487 u[iU]/mL High 0.358-3.740 [facility] Negative NEGATIVE [facility] 2.7 g/dL Low 3.4-5.0 [facility] 0.2 10 3/uL 0.0-0.7 [facility] 88 U/L 46-116 [facility] 20 U/L 14-59 [facility] 12 U/L Low 15-37 [facility] 25.6 [facility] 0.01 10 3/uL 0.00-0.03 [facility] 33.0 mg/dL High 7.0-18.0 [facility] 0.1 % 0.0-0.5 [facility] 8.9 mg/dL 8.5-10.1 [facility] 104 mmol/L 98-107 [facility] 26.7 mmol/L 21.0-32.0 [facility] 1.29 mg/dL High 0.55-1.02 [facility] 49 Low >=60 [facility] 233 mg/dL High 74-106 [facility] 4.0 mmol/L 3.5-5.1 [facility] 140 mmol/L 136-145 [facility] 0.5 mg/dL 0.2-1.0 [facility] 7.1 g/dL 6.4-8.2 [facility] Platelet mean volume Auto (B ld) [Entitic vol]on 05-26-2024 Platelet mean volume (Bld) [Entitic vol] 10.6 fL 9.5-13.5 [facility] Platelets Auto (Bld) [#/Vol] on 05-26-2024 Platelets (Bld) [#/Vol] 215 10 3/uL 150-450 [facility] RBC Auto (Bld) [#/Vol]on RBC (Bld) [#/Vol] 3.95 10 6/uL Low 4.20-5.40 [facility] Serum or plasma albumin/glob ulin mass ratioon 05-26-2024 Albumin/Globulin [Mass ratio] 0.6 {ratio} [facility] Serum or plasma anion gap de terminationon 05-26-2024 Anion gap [Moles/Vol] 13.3 mmol/L [facility] ECG 12 lead ECGon 05-22-2024 ECG 12 lead ECG [facility] [place] [address] Electrocardiograph Report Signed Patient: Joe Call MR#: [id number] 0 : 1945 Acct:[id number] Age/Sex: 78 / F ADM Date: 05/22/24 Loc: ER Room: Type: [facility] ER Attending Dr: Ordering Provider: Jorge Luis Zavala DO Date of Service: 05/22/2410/05/913 ECG/ECG 12 [...] Sinus bradycardia Confirmed by Daniele Jane DO ([id number]) on 05/22/2024 4:08:55 PM Referred By: Electronically Signed By: Daniele Jane DO Transcribed By: MUS Signed By Daniele Jane DO [id number] Normal [facility] 37on 05-20-2024 37 Have [...] pillows than normal or in recliner. Normal [facility] Estimated glomerular filtrat ion rate (GFR) non- Americanon 05-20-2024 GFR/1.73 sq M.predicted among non-blacks MDRD (S/P/Bld) [Vol rate/Area] 39 mL/min/{1.73_m2} Low >=60 [facility] Laboratory - Chemistry and C hemistry - challengeon 05-20-2024 Calcium [Mass/Vol] 8.8 mg/dL 8.5-10.1 [facility] Chloride [Moles/Vol] 103 mmol/L 98-107 [facility] CO2 [Moles/Vol] 24.3 mmol/L 21.0-32.0 [facility] Creatinine [Mass/Vol] 1.32 mg/dL High 0.55-1.02 [facility] GFR/1.73 sq M.predicted MDRD (S/P/Bld) [Vol rate/Area] 47 mL/min/{1.73_m2} Low >=60 [facility] Glucose [Mass/Vol] 243 mg/dL High 74-106 [facility] Potassium [Moles/Vol] 5.0 mmol/L 3.5-5.1 [facility] Sodium [Moles/Vol] 138 mmol/L 136-145 [facility] Urea nitrogen [Mass/Vol] 35.0 mg/dL High 7.0-18.0 [facility] Urea nitrogen/Creatinine [Mass ratio] 26.5 mg/mg [facility] No Panel Informationon 05-20 26.5 [facility] 35.0 mg/dL High 7.0-18.0 [facility] 8.8 mg/dL 8.5-10.1 [facility] 103 mmol/L 98-107 [facility] 24.3 mmol/L 21.0-32.0 [facility] 1.32 mg/dL High 0.55-1.02 [facility] 47 Low >=60 [facility] 243 mg/dL High 74-106 [facility] 5.0 mmol/L 3.5-5.1 [facility] 138 mmol/L 136-145 [facility] Office Visiton 05-20-2024 Follow-up visit [id number] BassemJoe Cramer 1945 F Date Provider Department Center 05/20/2024 [facility]HELA [facility]AMBERLAIN [facility] Family History Problem Relation Age of Onset Coronary artery disease Other Diabetes Other Polycystic kidney disease Other Family Status - Relation Status Age at Other Level of Service:74333 IN OFFICE/OUTPATIENT ESTABLISHED MOD MDM 30 MIN Normal [facility] Serum or plasma anion gap de terminationon 05-20-2024 Anion gap [Moles/Vol] 15.7 [facility] Basophils Auto (Bld) [#/Vol] on 05-06-2024 Basophils (Bld) [#/Vol] 0.1 10 3/uL 0.0-0.1 [facility] Basophils/100 WBC Auto (Bld) on 05-06-2024 Basophils/100 WBC (Bld) 0.9 % 0.2-2.0 [facility] Eosinophils/100 WBC Auto (Bl d)on 05-06-2024 Eosinophils/100 WBC (Bld) 2.7 % 0.9-7.0 [facility] Erythrocyte distribution wid th Auto (RBC) [Ratio]on 05-06-2024 Erythrocyte distribution width (RBC) [Ratio] 13.5 % 11.0-15.0 [facility] Estimated glomerular filtrat ion rate (GFR) non- Americanon 05-06-2024 GFR/1.73 sq M.predicted among non-blacks MDRD (S/P/Bld) [Vol rate/Area] 32 mL/min/{1.73_m2} Low >=60 [facility] Globulin Calc (S) [Mass/Vol] on 05-06-2024 Globulin (S) [Mass/Vol] 4.3 g/dL [facility] Hematocrit Auto (Bld) [Volum e fraction]on 05-06-2024 Hematocrit (Bld) [Volume fraction] 34.6 % Low 36.0-48.0 [facility] Hemoglobin [Mass/volume] in Bloodon 05-06-2024 Hemoglobin (Bld) [Mass/Vol] 11.1 g/dL Low 12.0-16.0 [facility] Laboratory - Chemistry and C hemistry - challengeon 05-06-2024 Albumin [Mass/Vol] 2.5 g/dL Low 3.4-5.0 [facility] ALP [Catalytic activity/Vol] 75 U/L 46-116 [facility] ALT [Catalytic activity/Vol] 16 U/L 14-59 [facility] AST [Catalytic activity/Vol] 11 U/L Low 15-37 [facility] Bilirubin [Mass/Vol] 0.4 mg/dL 0.2-1.0 [facility] Calcium [Mass/Vol] 8.4 mg/dL Low 8.5-10.1 [facility] Chloride [Moles/Vol] 107 mmol/L 98-107 [facility] CO2 [Moles/Vol] 25.7 mmol/L 21.0-32.0 [facility] Creatinine [Mass/Vol] 1.58 mg/dL High 0.55-1.02 [facility] GFR/1.73 sq M.predicted MDRD (S/P/Bld) [Vol rate/Area] 38 mL/min/{1.73_m2} Low >=60 [facility] Glucose [Mass/Vol] 146 mg/dL High 74-106 [facility] Magnesium [Mass/Vol] 1.6 mg/dL Low 1.8-2.4 [facility] Natriuretic peptide B (Bld) [Mass/Vol] 2762.0 pg/mL High <=1800.0 [facility] Comment on above: RESULTS CALLED TO CLARITZA SELLERS RN @BY Alla Venegas at 0557 Potassium [Moles/Vol] 4.1 mmol/L 3.5-5.1 [facility] Protein [Mass/Vol] 6.8 g/dL 6.4-8.2 [facility] Sodium [Moles/Vol] 141 mmol/L 136-145 [facility] Urea nitrogen [Mass/Vol] 49.0 mg/dL High 7.0-18.0 [facility] Urea nitrogen/Creatinine [Mass ratio] 31.0 mg/mg [facility] Laboratory - Hematology and Cell countson 05-06-2024 Immature granulocytes/100 WBC (Bld) 0.1 % 0.0-0.5 [facility] Leukocytes [#/volume] correc gali for nucleated erythrocytes in Blood by Automated counon 05-06-2024 WBC corrected for nucl RBC Auto (Bld) [#/Vol] 6.7 10 3/uL 4.0-11.0 [facility] Lymphocytes Auto (Bld) [#/Vo l]on 05-06-2024 Lymphocytes (Bld) [#/Vol] 1.5 10 3/uL 1.2-3.8 [facility] Lymphocytes/100 WBC Auto (Bl d)on 05-06-2024 Lymphocytes/100 WBC (Bld) 21.8 % 20.5-60.0 [facility] MCH Auto (RBC) [Entitic mass ]on 05-06-2024 MCH (RBC) [Entitic mass] 29.0 pg 26.7-34.0 [facility] MCHC Auto (RBC) [Mass/Vol]on 05-06-2024 MCHC (RBC) [Mass/Vol] 32.1 g/dL 29.9-35.2 [facility] MCV Auto (RBC) [Entitic vol] on 05-06-2024 MCV (RBC) [Entitic vol] 90.3 fL 81.0-99.0 [facility] Monocytes Auto (Bld) [#/Vol] on 05-06-2024 Monocytes (Bld) [#/Vol] 0.7 10 3/uL 0.3-0.8 [facility] Monocytes/100 WBC Auto (Bld) on 05-06-2024 Monocytes/100 WBC (Bld) 10.6 % 1.7-12.0 [facility] Neutrophils Auto (Bld) [#/Vo l]on 05-06-2024 Neutrophils (Bld) [#/Vol] 4.3 10 3/uL 1.4-6.5 [facility] Neutrophils/100 WBC Auto (Bl d)on 05-06-2024 Neutrophils/100 WBC (Bld) 63.9 % 43.0-75.0 [facility] No Panel Informationon 05-06 Eosinophils # (Auto) 0.2 10 3/uL 0.0-0.7 [facility] Immature Granulocyte # (Auto) 0.01 10 3/uL 0.00-0.03 [facility] Troponin I High Sensitivity 13.2 pg/mL 4.0-51.3 [facility] Comment on above: CUT-OFF POINTS [...] CLINICAL INFORMATION. 2762.0 pg/mL High <=1800.0 [facility] 13.2 pg/mL 4.0-51.3 [facility] 1.6 mg/dL Low 1.8-2.4 [facility] 2.5 g/dL Low 3.4-5.0 [facility] 0.2 10 3/uL 0.0-0.7 [facility] 75 U/L 46-116 [facility] 16 U/L 14-59 [facility] 11 U/L Low 15-37 [facility] 31.0 [facility] 0.01 10 3/uL 0.00-0.03 [facility] 49.0 mg/dL High 7.0-18.0 [facility] 0.1 % 0.0-0.5 [facility] 8.4 mg/dL Low 8.5-10.1 [facility] 107 mmol/L 98-107 [facility] 25.7 mmol/L 21.0-32.0 [facility] 1.58 mg/dL High 0.55-1.02 [facility] 38 Low >=60 [facility] 146 mg/dL High 74-106 [facility] 4.1 mmol/L 3.5-5.1 [facility] 141 mmol/L 136-145 [facility] 0.4 mg/dL 0.2-1.0 [facility] 6.8 g/dL 6.4-8.2 [facility] Platelet mean volume Auto (B ld) [Entitic vol]on 05-06-2024 Platelet mean volume (Bld) [Entitic vol] 11.3 fL 9.5-13.5 [facility] Platelets Auto (Bld) [#/Vol] on 05-06-2024 Platelets (Bld) [#/Vol] 146 10 3/uL Low 150-450 [facility] RBC Auto (Bld) [#/Vol]on RBC (Bld) [#/Vol] 3.83 10 6/uL Low 4.20-5.40 [facility] Serum or plasma albumin/glob ulin mass ratioon 05-06-2024 Albumin/Globulin [Mass ratio] 0.6 {ratio} [facility] Serum or plasma anion gap de terminationon 05-06-2024 Anion gap [Moles/Vol] 12.4 mmol/L Fi [facility] Basophils Auto (Bld) [#/Vol] on 05-05-2024 Basophils (Bld) [#/Vol] 0.1 10 3/uL 0.0-0.1 [facility] Basophils/100 WBC Auto (Bld) on 05-05-2024 Basophils/100 WBC (Bld) 0.9 % 0.2-2.0 [facility] Eosinophils/100 WBC Auto (Bl d)on 05-05-2024 Eosinophils/100 WBC (Bld) 1.9 % 0.9-7.0 [facility] Erythrocyte distribution wid th Auto (RBC) [Ratio]on 05-05-2024 Erythrocyte distribution width (RBC) [Ratio] 13.4 % 11.0-15.0 [facility] Estimated glomerular filtrat ion rate (GFR) non- Americanon 05-05-2024 GFR/1.73 sq M.predicted among non-blacks MDRD (S/P/Bld) [Vol rate/Area] 29 mL/min/{1.73_m2} Low >=60 [facility] Globulin Calc (S) [Mass/Vol] on 05-05-2024 Globulin (S) [Mass/Vol] 4.4 g/dL [facility] Hematocrit Auto (Bld) [Volum e fraction]on 05-05-2024 Hematocrit (Bld) [Volume fraction] 33.8 % Low 36.0-48.0 [facility] Hemoglobin [Mass/volume] in Bloodon 05-05-2024 Hemoglobin (Bld) [Mass/Vol] 11.1 g/dL Low 12.0-16.0 [facility] Laboratory - Chemistry and C hemistry - challengeon 05-05-2024 Albumin [Mass/Vol] 2.6 g/dL Low 3.4-5.0 [facility] ALP [Catalytic activity/Vol] 74 U/L 46-116 [facility] ALT [Catalytic activity/Vol] 17 U/L 14-59 [facility] AST [Catalytic activity/Vol] 12 U/L Low 15-37 [facility] Bilirubin [Mass/Vol] 0.4 mg/dL 0.2-1.0 [facility] Calcium [Mass/Vol] 6.1 mg/dL Low 8.5-10.1 [facility] Chloride [Moles/Vol] 105 mmol/L 98-107 [facility] CO2 [Moles/Vol] 24.1 mmol/L 21.0-32.0 [facility] Creatinine [Mass/Vol] 1.71 mg/dL High 0.55-1.02 [facility] GFR/1.73 sq M.predicted MDRD (S/P/Bld) [Vol rate/Area] 35 mL/min/{1.73_m2} Low >=60 [facility] Glucose [Mass/Vol] 202 mg/dL High 74-106 [facility] Magnesium [Mass/Vol] 1.5 mg/dL Low 1.8-2.4 [facility] Natriuretic peptide B (Bld) [Mass/Vol] 2725.0 pg/mL High <=1800.0 [facility] Comment on above: RESULTS CALLED TO Frances Bryant (Austyn)@BY Franchesca Huynh MLT at 0547 Potassium [Moles/Vol] 5.9 mmol/L High 3.5-5.1 [facility] Protein [Mass/Vol] 7.0 g/dL 6.4-8.2 [facility] Sodium [Moles/Vol] 139 mmol/L 136-145 [facility] Urea nitrogen [Mass/Vol] 69.0 mg/dL High 7.0-18.0 [facility] Urea nitrogen/Creatinine [Mass ratio] 40.4 mg/mg [facility] Laboratory - Hematology and Cell countson 05-05-2024 Immature granulocytes/100 WBC (Bld) 0.3 % 0.0-0.5 [facility] Leukocytes [#/volume] correc gali for nucleated erythrocytes in Blood by Automated counon 05-05-2024 WBC corrected for nucl RBC Auto (Bld) [#/Vol] 6.9 10 3/uL 4.0-11.0 [facility] Lymphocytes Auto (Bld) [#/Vo l]on 05-05-2024 Lymphocytes (Bld) [#/Vol] 1.2 10 3/uL 1.2-3.8 [facility] Lymphocytes/100 WBC Auto (Bl d)on 05-05-2024 Lymphocytes/100 WBC (Bld) 18.0 % Low 20.5-60.0 [facility] MCH Auto (RBC) [Entitic mass ]on 05-05-2024 MCH (RBC) [Entitic mass] 29.3 pg 26.7-34.0 [facility] MCHC Auto (RBC) [Mass/Vol]on 05-05-2024 MCHC (RBC) [Mass/Vol] 32.8 g/dL 29.9-35.2 [facility] MCV Auto (RBC) [Entitic vol] on 05-05-2024 MCV (RBC) [Entitic vol] 89.2 fL 81.0-99.0 [facility] Monocytes Auto (Bld) [#/Vol] on 05-05-2024 Monocytes (Bld) [#/Vol] 0.6 10 3/uL 0.3-0.8 [facility] Monocytes/100 WBC Auto (Bld) on 05-05-2024 Monocytes/100 WBC (Bld) 8.7 % 1.7-12.0 [facility] Neutrophils Auto (Bld) [#/Vo l]on 05-05-2024 Neutrophils (Bld) [#/Vol] 4.8 10 3/uL 1.4-6.5 [facility] Neutrophils/100 WBC Auto (Bl d)on 05-05-2024 Neutrophils/100 WBC (Bld) 70.2 % 43.0-75.0 [facility] No Panel Informationon 05-05 Eosinophils # (Auto) 0.1 10 3/uL 0.0-0.7 [facility] Immature Granulocyte # (Auto) 0.02 10 3/uL 0.00-0.03 [facility] Troponin I High Sensitivity 14.0 pg/mL 4.0-51.3 [facility] Comment on above: CUT-OFF POINTS [...] CLINICAL INFORMATION. 2725.0 pg/mL High <=1800.0 [facility] 14.0 pg/mL 4.0-51.3 [facility] 1.5 mg/dL Low 1.8-2.4 [facility] 2.6 g/dL Low 3.4-5.0 [facility] 0.1 10 3/uL 0.0-0.7 [facility] 74 U/L 46-116 [facility] 17 U/L 14-59 [facility] 12 U/L Low 15-37 [facility] 40.4 [facility] 0.02 10 3/uL 0.00-0.03 [facility] 69.0 mg/dL High 7.0-18.0 [facility] 0.3 % 0.0-0.5 [facility] 6.1 mg/dL Low 8.5-10.1 [facility] 105 mmol/L 98-107 [facility] 24.1 mmol/L 21.0-32.0 [facility] 1.71 mg/dL High 0.55-1.02 [facility] 35 Low >=60 [facility] 202 mg/dL High 74-106 [facility] 5.9 mmol/L High 3.5-5.1 [facility] 139 mmol/L 136-145 [facility] 0.4 mg/dL 0.2-1.0 [facility] 7.0 g/dL 6.4-8.2 [facility] Platelet mean volume Auto (B ld) [Entitic vol]on 05-05-2024 Platelet mean volume (Bld) [Entitic vol] 11.8 fL 9.5-13.5 [facility] Platelets Auto (Bld) [#/Vol] on 05-05-2024 Platelets (Bld) [#/Vol] 173 10 3/uL 150-450 [facility] RBC Auto (Bld) [#/Vol]on RBC (Bld) [#/Vol] 3.79 10 6/uL Low 4.20-5.40 [facility] Serum or plasma albumin/glob ulin mass ratioon 05-05-2024 Albumin/Globulin [Mass ratio] 0.6 {ratio} [facility] Serum or plasma anion gap de terminationon 05-05-2024 Anion gap [Moles/Vol] 15.8 mmol/[facility] Basophils Auto (Bld) [#/Vol] on 05-04-2024 Basophils (Bld) [#/Vol] 0.1 10 3/uL 0.0-0.1 [facility] Basophils/100 WBC Auto (Bld) on 05-04-2024 Basophils/100 WBC (Bld) 0.9 % 0.2-2.0 [facility] Eosinophils/100 WBC Auto (Bl d)on 05-04-2024 Eosinophils/100 WBC (Bld) 1.7 % 0.9-7.0 [facility] Erythrocyte distribution wid th Auto (RBC) [Ratio]on 05-04-2024 Erythrocyte distribution width (RBC) [Ratio] 13.6 % 11.0-15.0 [facility] Estimated glomerular filtrat ion rate (GFR) non- Americanon 05-04-2024 GFR/1.73 sq M.predicted among non-blacks MDRD (S/P/Bld) [Vol rate/Area] 21 mL/min/{1.73_m2} Low >=60 [facility] Globulin Calc (S) [Mass/Vol] on 05-04-2024 Globulin (S) [Mass/Vol] 4.9 g/dL [facility] Hematocrit Auto (Bld) [Volum e fraction]on 05-04-2024 Hematocrit (Bld) [Volume fraction] 37.6 % 36.0-48.0 [facility] Hemoglobin [Mass/volume] in Bloodon 05-04-2024 Hemoglobin (Bld) [Mass/Vol] 12.0 g/dL 12.0-16.0 [facility] Laboratory - Chemistry and C hemistry - challengeon 05-04-2024 Bilirubin Ql (U) Negative NEGATIVE [facility] Glucose (U) [Mass/Vol] 250 mg/dL Abnormal NEGATIVE [facility] Ketones Ql (U) Negative NEGATIVE [facility] pH (U) 6.0 [pH] 5.0-9.0 [facility] Specific gravity (U) [Rel density] 1.015 1.005-1.025 [facility] Urobilinogen Qn (U) 0.2 {Meka'U}/dL 0.2-1.0 [facility] Albumin [Mass/Vol] 2.8 g/dL Low 3.4-5.0 [facility] ALP [Catalytic activity/Vol] 86 U/L 46-116 [facility] ALT [Catalytic activity/Vol] 16 U/L 14-59 [facility] Ammonia (P) [Moles/Vol] 12 umol/L 11-32 [facility] AST [Catalytic activity/Vol] 8 U/L Low 15-37 [facility] Bilirubin [Mass/Vol] 0.4 mg/dL 0.2-1.0 [facility] Calcium [Mass/Vol] 8.8 mg/dL 8.5-10.1 [facility] Chloride [Moles/Vol] 101 mmol/L 98-107 [facility] CO2 [Moles/Vol] 22.4 mmol/L 21.0-32.0 [facility] Creatinine [Mass/Vol] 2.24 mg/dL High 0.55-1.02 [facility] GFR/1.73 sq M.predicted MDRD (S/P/Bld) [Vol rate/Area] 26 mL/min/{1.73_m2} Low >=60 [facility] Glucose [Mass/Vol] 369 mg/dL High 74-106 [facility] Lactate [Moles/Vol] 1.2 mmol/L 0.4-2.0 [facility] Magnesium [Mass/Vol] 1.7 mg/dL Low 1.8-2.4 [facility] Natriuretic peptide B (Bld) [Mass/Vol] 2342.0 pg/mL High <=1800.0 [facility] Comment on above: RESULTS CALLED TO RENETTA Renteria RN @BY Andrea Long, MLTat [phone] Potassium [Moles/Vol] 5.6 mmol/L High 3.5-5.1 [facility] Protein [Mass/Vol] 7.7 g/dL 6.4-8.2 [facility] Sodium [Moles/Vol] 134 mmol/L Low 136-145 [facility] T4 [Mass/Vol] 11.80 ug/dL 4.80-13.90 [facility] TSH Qn 0.933 m[IU]/L 0.358-3.740 [facility] Urea nitrogen [Mass/Vol] 86.0 mg/dL High 7.0-18.0 [facility] Comment on above: RESULTS CALLED TO RENETTA Renteria RN @BY Andrea Long, MLTat 1126 Urea nitrogen/Creatinine [Mass ratio] 38.4 mg/mg [facility] Laboratory - Hematology and Cell countson 05-04-2024 Immature granulocytes/100 WBC (Bld) 0.3 % 0.0-0.5 [facility] Laboratory - Microbiology an d Antimicrobial susceptibilityOrdered By: Carl Morales on 05-04-2024 Bacteria identified Cx Nom (U) [facility] Laboratory - Specimen inform ationon 05-04-2024 Appearance (U) SLIGHTLY CLOUDY Abnormal CLEAR [facility] Color (U) YELLOW YELLOW [facility] Laboratory - Urinalysison Hyaline casts LM Ql (Urine sed) RARE [facility] Leukocyte esterase Test strip Ql (U) Negative NEGATIVE [facility] Mucus Ql (Urine sed) NONE SEEN NONE SEEN [facility] Nitrite Ql (U) Negative NEGATIVE [facility] Protein Ql (U) 100 mg/dL Abnormal NEG/TRACE [facility] Leukocytes [#/volume] correc gali for nucleated erythrocytes in Blood by Automated counon 05-04-2024 WBC corrected for nucl RBC Auto (Bld) [#/Vol] 6.9 10 3/uL 4.0-11.0 [facility] Lymphocytes Auto (Bld) [#/Vo l]on 05-04-2024 Lymphocytes (Bld) [#/Vol] 1.2 10 3/uL 1.2-3.8 [facility] Lymphocytes/100 WBC Auto (Bl d)on 05-04-2024 Lymphocytes/100 WBC (Bld) 17.8 % Low 20.5-60.0 [facility] MCH Auto (RBC) [Entitic mass ]on 05-04-2024 MCH (RBC) [Entitic mass] 29.3 pg 26.7-34.0 [facility] MCHC Auto (RBC) [Mass/Vol]on 05-04-2024 MCHC (RBC) [Mass/Vol] 31.9 g/dL 29.9-35.2 [facility] MCV Auto (RBC) [Entitic vol] on 05-04-2024 MCV (RBC) [Entitic vol] 91.9 fL 81.0-99.0 [facility] Monocytes Auto (Bld) [#/Vol] on 05-04-2024 Monocytes (Bld) [#/Vol] 0.7 10 3/uL 0.3-0.8 [facility] Monocytes/100 WBC Auto (Bld) on 05-04-2024 Monocytes/100 WBC (Bld) 10.4 % 1.7-12.0 [facility] Neutrophils Auto (Bld) [#/Vo l]on 05-04-2024 Neutrophils (Bld) [#/Vol] 4.8 10 3/uL 1.4-6.5 [facility] Neutrophils/100 WBC Auto (Bl d)on 05-04-2024 Neutrophils/100 WBC (Bld) 68.9 % 43.0-75.0 [facility] No Panel Informationon 05-04 Acetone Level Negative NEGATIVE [facility] Negative NEGATIVE [facility] Urine Bacteria MODERATE #/HPF Abnormal NONE SEEN [facility] Urine Culture Reflexed ALREADY ORDERED [facility] Urine Microscopic Review YES [facility] Urine Occult Blood MODERATE Abnormal NEGATIVE [facility] Urine Other Casts SEEN #/LPF Abnormal NONE SEEN [facility] Urine Other Crystals None Seen #/HPF None Seen [facility] Urine RBC 2-5 #/HPF Abnormal 0-2 [facility] Urine Squamous Epithelial Cells FEW #/LPF Abnormal NONE/RARE [facility] Urine WBC 2-5 #/HPF Abnormal NONE SEEN [facility] ALREADY ORDERED [facility] YES [facility] SEEN #/LPF Abnormal NONE SEEN [facility] Negative NEGATIVE [facility] None Seen #/HPF None Seen [facility] MODERATE Abnormal NEGATIVE [facility] MODERATE #/HPF Abnormal NONE SEEN [facility] SLIGHTLY CLOUDY Abnormal CLEAR [facility] RARE [facility] YELLOW YELLOW [facility] NONE SEEN NONE SEEN [facility] 250 mg/dL Abnormal NEGATIVE [facility] 2-5 #/HPF Abnormal NONE SEEN [facility] FEW #/LPF Abnormal NONE/RARE [facility] 6.0 5.0-9.0 [facility] 100 mg/dL Abnormal NEG/TRACE [facility] 1.015 1.005-1.025 [facility] 0.2 EU/dL 0.2-1.0 [facility] Eosinophils # (Auto) 0.1 10 3/uL 0.0-0.7 [facility] Immature Granulocyte # (Auto) 0.02 10 3/uL 0.00-0.03 [facility] Troponin I High Sensitivity 10.5 pg/mL 4.0-51.3 [facility] Comment on above: CUT-OFF POINTS [...] Pressure CO2 38.5 mm[Hg] Low 40.0-52.0 [facility] Venous Blood pH 7.353 7.330-7.430 [facility] 0.933 u[iU]/mL 0.358-3.740 [facility] 11.80 ug/dL 4.80-13.90 [facility] 1.7 mg/dL Low 1.8-2.4 [facility] 2342.0 pg/mL High <=1800.0 [facility] 1.2 mmol/L 0.4-2.0 [facility] 10.5 pg/mL 4.0-51.3 [facility] 12 umol/L 11-32 [facility] 38.5 mm[Hg] Low 40.0-52.0 [facility] 7.353 7.330-7.430 [facility] 2.8 g/dL Low 3.4-5.0 [facility] 0.1 10 3/uL 0.0-0.7 [facility] 86 U/L 46-116 [facility] 16 U/L 14-59 [facility] 8 U/L Low 15-37 [facility] 38.4 [facility] 0.02 10 3/uL 0.00-0.03 [facility] 86.0 mg/dL High 7.0-18.0 [facility] 0.3 % 0.0-0.5 [facility] 8.8 mg/dL 8.5-10.1 [facility] 101 mmol/L 98-107 [facility] 22.4 mmol/L 21.0-32.0 [facility] 2.24 mg/dL High 0.55-1.02 [facility] 26 Low >=60 [facility] 369 mg/dL High 74-106 [facility] 5.6 mmol/L High 3.5-5.1 [facility] 134 mmol/L Low 136-145 [facility] 0.4 mg/dL 0.2-1.0 [facility] 7.7 g/dL 6.4-8.2 [facility] No Panel InformationOrdered By: LAMINE SINGH on 05-04-2024 Blood Culture 1 [facility] Platelet mean volume Auto (B ld) [Entitic vol]on 05-04-2024 Platelet mean volume (Bld) [Entitic vol] 11.4 fL 9.5-13.5 [facility] Platelets Auto (Bld) [#/Vol] on 05-04-2024 Platelets (Bld) [#/Vol] 160 10 3/uL 150-450 [facility] RBC Auto (Bld) [#/Vol]on RBC (Bld) [#/Vol] 4.09 10 6/uL Low 4.20-5.40 [facility] Serum or plasma albumin/glob ulin mass ratioon 05-04-2024 Albumin/Globulin [Mass ratio] 0.6 {ratio} [facility] Serum or plasma anion gap de terminationon 05-04-2024 Anion gap [Moles/Vol] 16.2 mmol/L Fi [facility] Basophils Auto (Bld) [#/Vol] on 05-01-2024 Basophils (Bld) [#/Vol] 0.1 10 3/uL 0.0-0.1 [facility] Basophils/100 WBC Auto (Bld) on 05-01-2024 Basophils/100 WBC (Bld) 0.7 % 0.2-2.0 [facility] Eosinophils/100 WBC Auto (Bl d)on 05-01-2024 Eosinophils/100 WBC (Bld) 2.3 % 0.9-7.0 [facility] Erythrocyte distribution wid th Auto (RBC) [Ratio]on 05-01-2024 Erythrocyte distribution width (RBC) [Ratio] 13.6 % 11.0-15.0 [facility] Estimated glomerular filtrat ion rate (GFR) non- Americanon 05-01-2024 GFR/1.73 sq M.predicted among non-blacks MDRD (S/P/Bld) [Vol rate/Area] 22 mL/min/{1.73_m2} Low >=60 [facility] Globulin Calc (S) [Mass/Vol] on 05-01-2024 Globulin (S) [Mass/Vol] 4.4 g/dL [facility] Hematocrit Auto (Bld) [Volum e fraction]on 05-01-2024 Hematocrit (Bld) [Volume fraction] 37.5 % 36.0-48.0 [facility] Hemoglobin [Mass/volume] in Bloodon 05-01-2024 Hemoglobin (Bld) [Mass/Vol] 12.1 g/dL 12.0-16.0 [facility] Laboratory - Chemistry and C hemistry - challengeon 05-01-2024 Calcium [Mass/Vol] 9.2 mg/dL 8.5-10.1 [facility] Chloride [Moles/Vol] 104 mmol/L 98-107 [facility] CO2 [Moles/Vol] 23.2 mmol/L 21.0-32.0 [facility] Creatinine [Mass/Vol] 2.14 mg/dL High 0.55-1.02 [facility] GFR/1.73 sq M.predicted MDRD (S/P/Bld) [Vol rate/Area] 27 mL/min/{1.73_m2} Low >=60 [facility] Glucose [Mass/Vol] 220 mg/dL High 74-106 [facility] Potassium [Moles/Vol] 5.3 mmol/L High 3.5-5.1 [facility] Sodium [Moles/Vol] 134 mmol/L Low 136-145 [facility] Urea nitrogen [Mass/Vol] 87.0 mg/dL High 7.0-18.0 [facility] Comment on above: RESULTS CALLED TO Klaus Michaels RN @BY Sury French [phone] Urea nitrogen/Creatinine [Mass ratio] 40.7 mg/mg [facility] Albumin [Mass/Vol] 2.8 g/dL Low 3.4-5.0 [facility] ALP [Catalytic activity/Vol] 80 U/L 46-116 [facility] ALT [Catalytic activity/Vol] 16 U/L 14-59 [facility] AST [Catalytic activity/Vol] 11 U/L Low 15-37 [facility] Bilirubin [Mass/Vol] 0.4 mg/dL 0.2-1.0 [facility] Natriuretic peptide B (Bld) [Mass/Vol] 1624.0 pg/mL <=1800.0 [facility] Protein [Mass/Vol] 7.2 g/dL 6.4-8.2 [facility] Laboratory - Hematology and Cell countson 05-01-2024 Immature granulocytes/100 WBC (Bld) 0.1 % 0.0-0.5 [facility] Leukocytes [#/volume] correc gali for nucleated erythrocytes in Blood by Automated counon 05-01-2024 WBC corrected for nucl RBC Auto (Bld) [#/Vol] 7.4 10 3/uL 4.0-11.0 [facility] Lymphocytes Auto (Bld) [#/Vo l]on 05-01-2024 Lymphocytes (Bld) [#/Vol] 2.2 10 3/uL 1.2-3.8 [facility] Lymphocytes/100 WBC Auto (Bl d)on 05-01-2024 Lymphocytes/100 WBC (Bld) 29.4 % 20.5-60.0 [facility] MCH Auto (RBC) [Entitic mass ]on 05-01-2024 MCH (RBC) [Entitic mass] 29.2 pg 26.7-34.0 [facility] MCHC Auto (RBC) [Mass/Vol]on 05-01-2024 MCHC (RBC) [Mass/Vol] 32.3 g/dL 29.9-35.2 [facility] MCV Auto (RBC) [Entitic vol] on 05-01-2024 MCV (RBC) [Entitic vol] 90.4 fL 81.0-99.0 [facility] Monocytes Auto (Bld) [#/Vol] on 05-01-2024 Monocytes (Bld) [#/Vol] 0.9 10 3/uL High 0.3-0.8 [facility] Monocytes/100 WBC Auto (Bld) on 05-01-2024 Monocytes/100 WBC (Bld) 11.5 % 1.7-12.0 [facility] Neutrophils Auto (Bld) [#/Vo l]on 05-01-2024 Neutrophils (Bld) [#/Vol] 4.1 10 3/uL 1.4-6.5 [facility] Neutrophils/100 WBC Auto (Bl d)on 05-01-2024 Neutrophils/100 WBC (Bld) 56.0 % 43.0-75.0 [facility] No Panel Informationon 05-01 40.7 [facility] 87.0 mg/dL High 7.0-18.0 [facility] 9.2 mg/dL 8.5-10.1 [facility] 104 mmol/L 98-107 [facility] 23.2 mmol/L 21.0-32.0 [facility] 2.14 mg/dL High 0.55-1.02 [facility] 27 Low >=60 [facility] 220 mg/dL High 74-106 [facility] 5.3 mmol/L High 3.5-5.1 [facility] 134 mmol/L Low 136-145 [facility] Eosinophils # (Auto) 0.2 10 3/uL 0.0-0.7 [facility] Immature Granulocyte # (Auto) 0.01 10 3/uL 0.00-0.03 [facility] 1624.0 pg/mL <=1800.0 [facility] 2.8 g/dL Low 3.4-5.0 [facility] 0.2 10 3/uL 0.0-0.7 [facility] 80 U/L 46-116 [facility] 16 U/L 14-59 [facility] 11 U/L Low 15-37 [facility] 0.01 10 3/uL 0.00-0.03 [facility] 0.1 % 0.0-0.5 [facility] 0.4 mg/dL 0.2-1.0 [facility] 7.2 g/dL 6.4-8.2 [facility] Platelet mean volume Auto (B ld) [Entitic vol]on 05-01-2024 Platelet mean volume (Bld) [Entitic vol] 11.6 fL 9.5-13.5 [facility] Platelets Auto (Bld) [#/Vol] on 05-01-2024 Platelets (Bld) [#/Vol] 151 10 3/uL 150-450 [facility] RBC Auto (Bld) [#/Vol]on RBC (Bld) [#/Vol] 4.15 10 6/uL Low 4.20-5.40 [facility] Serum or plasma albumin/glob ulin mass ratioon 05-01-2024 Albumin/Globulin [Mass ratio] 0.6 {ratio} [facility] Serum or plasma anion gap de terminationon 05-01-2024 Anion gap [Moles/Vol] 12.1 mmol/L Fi [facility] Basophils Auto (Bld) [#/Vol] on 04-30-2024 Basophils (Bld) [#/Vol] 0.1 10 3/uL 0.0-0.1 [facility] Basophils/100 WBC Auto (Bld) on 04-30-2024 Basophils/100 WBC (Bld) 0.9 % 0.2-2.0 [facility] Eosinophils/100 WBC Auto (Bl d)on 04-30-2024 Eosinophils/100 WBC (Bld) 2.4 % 0.9-7.0 [facility] Erythrocyte distribution wid th Auto (RBC) [Ratio]on 04-30-2024 Erythrocyte distribution width (RBC) [Ratio] 13.5 % 11.0-15.0 [facility] Estimated glomerular filtrat ion rate (GFR) non- Americanon 04-30-2024 GFR/1.73 sq M.predicted among non-blacks MDRD (S/P/Bld) [Vol rate/Area] 15 mL/min/{1.73_m2} Low >=60 [facility] Fibrin D-dimer [Presence] in Platelet poor plasma by Latex agglutinationon 04-30-2024 Fibrin D-dimer LA Ql (PPP) 0.24 mg/L FEU <=0.59 [facility] Comment on above: Increases in [...] (Bld) [Volume fraction] 38.6 % 36.0-48.0 [facility] Hemoglobin [Mass/volume] in Bloodon 04-30-2024 Hemoglobin (Bld) [Mass/Vol] 12.5 g/dL 12.0-16.0 [facility] Laboratory - Chemistry and C hemistry - challengeon 04-30-2024 Calcium [Mass/Vol] 9.0 mg/dL 8.5-10.1 [facility] Chloride [Moles/Vol] 100 mmol/L 98-107 [facility] CO2 [Moles/Vol] 24.4 mmol/L 21.0-32.0 [facility] Creatinine [Mass/Vol] 3.02 mg/dL High 0.55-1.02 [facility] GFR/1.73 sq M.predicted MDRD (S/P/Bld) [Vol rate/Area] 18 mL/min/{1.73_m2} Low >=60 [facility] Glucose [Mass/Vol] 271 mg/dL High 74-106 [facility] Magnesium [Mass/Vol] 1.8 mg/dL 1.8-2.4 [facility] Natriuretic peptide B (Bld) [Mass/Vol] 1485.0 pg/mL <=1800.0 [facility] Potassium [Moles/Vol] 5.3 mmol/L High 3.5-5.1 [facility] Sodium [Moles/Vol] 133 mmol/L Low 136-145 [facility] Urea nitrogen [Mass/Vol] 99.0 mg/dL High 7.0-18.0 [facility] Comment on above: RESULTS CALLED TO Yoel WADE)@BY Franchesca Huynh MLT at [phone] Urea nitrogen/Creatinine [Mass ratio] 32.8 mg/mg [facility] Laboratory - Hematology and Cell countson 04-30-2024 Immature granulocytes/100 WBC (Bld) 0.1 % 0.0-0.5 [facility] Leukocytes [#/volume] correc gali for nucleated erythrocytes in Blood by Automated counon 04-30-2024 WBC corrected for nucl RBC Auto (Bld) [#/Vol] 7.5 10 3/uL 4.0-11.0 [facility] Lymphocytes Auto (Bld) [#/Vo l]on 04-30-2024 Lymphocytes (Bld) [#/Vol] 2.1 10 3/uL 1.2-3.8 [facility] Lymphocytes/100 WBC Auto (Bl d)on 04-30-2024 Lymphocytes/100 WBC (Bld) 27.8 % 20.5-60.0 [facility] MCH Auto (RBC) [Entitic mass ]on 04-30-2024 MCH (RBC) [Entitic mass] 29.6 pg 26.7-34.0 [facility] MCHC Auto (RBC) [Mass/Vol]on 04-30-2024 MCHC (RBC) [Mass/Vol] 32.4 g/dL 29.9-35.2 [facility] MCV Auto (RBC) [Entitic vol] on 04-30-2024 MCV (RBC) [Entitic vol] 91.5 fL 81.0-99.0 [facility] Monocytes Auto (Bld) [#/Vol] on 04-30-2024 Monocytes (Bld) [#/Vol] 0.8 10 3/uL 0.3-0.8 [facility] Monocytes/100 WBC Auto (Bld) on 04-30-2024 Monocytes/100 WBC (Bld) 10.0 % 1.7-12.0 [facility] Neutrophils Auto (Bld) [#/Vo l]on 04-30-2024 Neutrophils (Bld) [#/Vol] 4.4 10 3/uL 1.4-6.5 [facility] Neutrophils/100 WBC Auto (Bl d)on 04-30-2024 Neutrophils/100 WBC (Bld) 58.8 % 43.0-75.0 [facility] No Panel Informationon 04-30 Troponin I High Sensitivity 12.6 pg/mL 4.0-51.3 [facility] Comment on above: CUT-OFF POINTS [...] AND CLINICAL INFORMATION. 1.8 mg/dL 1.8-2.4 [facility] [facility] 1485.0 pg/mL <=1800.0 [facility] 12.6 pg/mL 4.0-51.3 [facility] 32.8 [facility] 99.0 mg/dL High 7.0-18.0 [facility] 9.0 mg/dL 8.5-10.1 [facility] 100 mmol/L 98-107 [facility] 24.4 mmol/L 21.0-32.0 [facility] 3.02 mg/dL High 0.55-1.02 [facility] 18 Low >=60 [facility] 271 mg/dL High 74-106 [facility] 5.3 mmol/L High 3.5-5.1 [facility] 133 mmol/L Low 136-145 [facility] Eosinophils # (Auto) 0.2 10 3/uL 0.0-0.7 [facility] Immature Granulocyte # (Auto) 0.01 10 3/uL 0.00-0.03 [facility] 0.2 10 3/uL 0.0-0.7 [facility] 0.01 10 3/uL 0.00-0.03 [facility] 0.1 % 0.0-0.5 [facility] Platelet mean volume Auto (B ld) [Entitic vol]on 04-30-2024 Platelet mean volume (Bld) [Entitic vol] 12.2 fL 9.5-13.5 [facility] Platelets Auto (Bld) [#/Vol] on 04-30-2024 Platelets (Bld) [#/Vol] 221 10 3/uL 150-450 [facility] RBC Auto (Bld) [#/Vol]on RBC (Bld) [#/Vol] 4.22 10 6/uL 4.20-5.40 [facility] Serum or plasma anion gap de terminationon 04-30-2024 Anion gap [Moles/Vol] 13.9 mmol/L Fi [facility] Basophils Auto (Bld) [#/Vol] on 03-28-2024 Basophils (Bld) [#/Vol] 0.1 10 3/uL 0.0-0.1 [facility] Basophils/100 WBC Auto (Bld) on 03-28-2024 Basophils/100 WBC (Bld) 0.9 % 0.2-2.0 [facility] Eosinophils/100 WBC Auto (Bl d)on 03-28-2024 Eosinophils/100 WBC (Bld) 1.7 % 0.9-7.0 [facility] Erythrocyte distribution wid th Auto (RBC) [Ratio]on 03-28-2024 Erythrocyte distribution width (RBC) [Ratio] 14.2 % 11.0-15.0 [facility] Estimated glomerular filtrat ion rate (GFR) non- Americanon 03-28-2024 GFR/1.73 sq M.predicted among non-blacks MDRD (S/P/Bld) [Vol rate/Area] 39 mL/min/{1.73_m2} Low >=60 [facility] Globulin Calc (S) [Mass/Vol] on 03-28-2024 Globulin (S) [Mass/Vol] 4.8 g/dL [facility] Hematocrit Auto (Bld) [Volum e fraction]on 03-28-2024 Hematocrit (Bld) [Volume fraction] 40.0 % 36.0-48.0 [facility] Hemoglobin [Mass/volume] in Bloodon 03-28-2024 Hemoglobin (Bld) [Mass/Vol] 12.6 g/dL 12.0-16.0 [facility] Laboratory - Chemistry and C hemistry - challengeon 03-28-2024 Albumin [Mass/Vol] 2.5 g/dL Low 3.4-5.0 [facility] ALP [Catalytic activity/Vol] 93 U/L 46-116 [facility] ALT [Catalytic activity/Vol] 9 U/L Low 14-59 [facility] AST [Catalytic activity/Vol] 10 U/L Low 15-37 [facility] Bilirubin [Mass/Vol] 0.9 mg/dL 0.2-1.0 [facility] Calcium [Mass/Vol] 8.5 mg/dL 8.5-10.1 [facility] Chloride [Moles/Vol] 96 mmol/L Low 98-107 [facility] CO2 [Moles/Vol] 27.1 mmol/L 21.0-32.0 [facility] Creatinine [Mass/Vol] 1.33 mg/dL High 0.55-1.02 [facility] GFR/1.73 sq M.predicted MDRD (S/P/Bld) [Vol rate/Area] 47 mL/min/{1.73_m2} Low >=60 [facility] Glucose [Mass/Vol] 261 mg/dL High 74-106 [facility] Magnesium [Mass/Vol] 1.8 mg/dL 1.8-2.4 [facility] Natriuretic peptide B (Bld) [Mass/Vol] 3338.0 pg/mL High <=1800.0 [facility] Comment on above: RESULTS CALLED TO Claritza ButtsRN)@BY Franchesca Huynh MLT at 0554 Potassium [Moles/Vol] 3.8 mmol/L 3.5-5.1 [facility] Protein [Mass/Vol] 7.3 g/dL 6.4-8.2 [facility] Sodium [Moles/Vol] 133 mmol/L Low 136-145 [facility] Urea nitrogen [Mass/Vol] 36.0 mg/dL High 7.0-18.0 [facility] Urea nitrogen/Creatinine [Mass ratio] 27.1 mg/mg [facility] Laboratory - Hematology and Cell countson 03-28-2024 Immature granulocytes/100 WBC (Bld) 0.4 % 0.0-0.5 [facility] Leukocytes [#/volume] correc gali for nucleated erythrocytes in Blood by Automated counon 03-28-2024 WBC corrected for nucl RBC Auto (Bld) [#/Vol] 8.4 10 3/uL 4.0-11.0 [facility] Lymphocytes Auto (Bld) [#/Vo l]on 03-28-2024 Lymphocytes (Bld) [#/Vol] 1.8 10 3/uL 1.2-3.8 [facility] Lymphocytes/100 WBC Auto (Bl d)on 03-28-2024 Lymphocytes/100 WBC (Bld) 21.4 % 20.5-60.0 [facility] MCH Auto (RBC) [Entitic mass ]on 03-28-2024 MCH (RBC) [Entitic mass] 29.0 pg 26.7-34.0 [facility] MCHC Auto (RBC) [Mass/Vol]on 03-28-2024 MCHC (RBC) [Mass/Vol] 31.5 g/dL 29.9-35.2 [facility] MCV Auto (RBC) [Entitic vol] on 03-28-2024 MCV (RBC) [Entitic vol] 92.0 fL 81.0-99.0 [facility] Monocytes Auto (Bld) [#/Vol] on 03-28-2024 Monocytes (Bld) [#/Vol] 0.8 10 3/uL 0.3-0.8 [facility] Monocytes/100 WBC Auto (Bld) on 03-28-2024 Monocytes/100 WBC (Bld) 9.7 % 1.7-12.0 [facility] Neutrophils Auto (Bld) [#/Vo l]on 03-28-2024 Neutrophils (Bld) [#/Vol] 5.6 10 3/uL 1.4-6.5 [facility] Neutrophils/100 WBC Auto (Bl d)on 03-28-2024 Neutrophils/100 WBC (Bld) 65.9 % 43.0-75.0 [facility] No Panel Informationon 03-28 Eosinophils # (Auto) 0.1 10 3/uL 0.0-0.7 [facility] Immature Granulocyte # (Auto) 0.03 10 3/uL 0.00-0.03 [facility] 3338.0 pg/mL High <=1800.0 [facility] 1.8 mg/dL 1.8-2.4 [facility] 2.5 g/dL Low 3.4-5.0 [facility] 0.1 10 3/uL 0.0-0.7 [facility] 93 U/L 46-116 [facility] 9 U/L Low 14-59 [facility] 10 U/L Low 15-37 [facility] 27.1 [facility] 0.03 10 3/uL 0.00-0.03 [facility] 36.0 mg/dL High 7.0-18.0 [facility] 0.4 % 0.0-0.5 [facility] 8.5 mg/dL 8.5-10.1 [facility] 96 mmol/L Low 98-107 [facility] 27.1 mmol/L 21.0-32.0 [facility] 1.33 mg/dL High 0.55-1.02 [facility] 47 Low >=60 [facility] 261 mg/dL High 74-106 [facility] 3.8 mmol/L 3.5-5.1 [facility] 133 mmol/L Low 136-145 [facility] 0.9 mg/dL 0.2-1.0 [facility] 7.3 g/dL 6.4-8.2 [facility] Platelet mean volume Auto (B ld) [Entitic vol]on 03-28-2024 Platelet mean volume (Bld) [Entitic vol] 10.5 fL 9.5-13.5 [facility] Platelets Auto (Bld) [#/Vol] on 03-28-2024 Platelets (Bld) [#/Vol] 197 10 3/uL 150-450 [facility] RBC Auto (Bld) [#/Vol]on RBC (Bld) [#/Vol] 4.35 10 6/uL 4.20-5.40 [facility] Serum or plasma albumin/glob ulin mass ratioon 03-28-2024 Albumin/Globulin [Mass ratio] 0.5 {ratio} [facility] Serum or plasma anion gap de terminationon 03-28-2024 Anion gap [Moles/Vol] 13.7 mmol/L Fi [facility] Basophils Auto (Bld) [#/Vol] on 03-27-2024 Basophils (Bld) [#/Vol] 0.1 10 3/uL 0.0-0.1 [facility] Basophils/100 WBC Auto (Bld) on 03-27-2024 Basophils/100 WBC (Bld) 0.8 % 0.2-2.0 [facility] Eosinophils/100 WBC Auto (Bl d)on 03-27-2024 Eosinophils/100 WBC (Bld) 1.1 % 0.9-7.0 [facility] Erythrocyte distribution wid th Auto (RBC) [Ratio]on 03-27-2024 Erythrocyte distribution width (RBC) [Ratio] 14.2 % 11.0-15.0 [facility] Estimated glomerular filtrat ion rate (GFR) non- Americanon 03-27-2024 GFR/1.73 sq M.predicted among non-blacks MDRD (S/P/Bld) [Vol rate/Area] 44 mL/min/{1.73_m2} Low >=60 [facility] Globulin Calc (S) [Mass/Vol] on 03-27-2024 Globulin (S) [Mass/Vol] 4.6 g/dL [facility] Glucose mean value [Mass/vol ume] in Blood Estimated from glycated hemoglobinon 03-27-2024 Average glucose Estimated from glycated hemoglobin (Bld) [Mass/Vol] 275 mg/dL [facility] Hematocrit Auto (Bld) [Volum e fraction]on 03-27-2024 Hematocrit (Bld) [Volume fraction] 37.4 % 36.0-48.0 [facility] Hemoglobin [Mass/volume] in Bloodon 03-27-2024 Hemoglobin (Bld) [Mass/Vol] 12.1 g/dL 12.0-16.0 [facility] Laboratory - Chemistry and C hemistry - challengeon 03-27-2024 Albumin [Mass/Vol] 2.6 g/dL Low 3.4-5.0 [facility] ALP [Catalytic activity/Vol] 89 U/L 46-116 [facility] ALT [Catalytic activity/Vol] 12 U/L Low 14-59 [facility] AST [Catalytic activity/Vol] 9 U/L Low 15-37 [facility] Bilirubin [Mass/Vol] 0.9 mg/dL 0.2-1.0 [facility] Calcium [Mass/Vol] 9.1 mg/dL 8.5-10.1 [facility] Chloride [Moles/Vol] 99 mmol/L 98-107 [facility] CO2 [Moles/Vol] 28.8 mmol/L 21.0-32.0 [facility] Creatinine [Mass/Vol] 1.19 mg/dL High 0.55-1.02 [facility] GFR/1.73 sq M.predicted MDRD (S/P/Bld) [Vol rate/Area] 53 mL/min/{1.73_m2} Low >=60 [facility] Glucose [Mass/Vol] 273 mg/dL High 74-106 [facility] Magnesium [Mass/Vol] 1.7 mg/dL Low 1.8-2.4 [facility] Natriuretic peptide B (Bld) [Mass/Vol] 4572.0 pg/mL High <=1800.0 [facility] Comment on above: RESULTS CALLED TO SA RA MIGUEL RN @BY Alla Kevin [phone] Potassium [Moles/Vol] 3.6 mmol/L 3.5-5.1 [facility] Protein [Mass/Vol] 7.2 g/dL 6.4-8.2 [facility] Sodium [Moles/Vol] 135 mmol/L Low 136-145 [facility] Urea nitrogen [Mass/Vol] 34.0 mg/dL High 7.0-18.0 [facility] Urea nitrogen/Creatinine [Mass ratio] 28.6 mg/mg [facility] Laboratory - Hematology and Cell countson 03-27-2024 HbA1c (Bld) [Mass fraction] 11.2 % High 4.5-6.2 [facility] Comment on above: ADA RECOMMENDED LIMI T 4.0 - 6.0ADA THERAPEUTIC TARGET < 7.0ACTION SUGGESTED> 7.0 Immature granulocytes/100 WBC (Bld) 0.3 % 0.0-0.5 [facility] Leukocytes [#/volume] correc gali for nucleated erythrocytes in Blood by Automated counon 03-27-2024 WBC corrected for nucl RBC Auto (Bld) [#/Vol] 9.7 10 3/uL 4.0-11.0 [facility] Lymphocytes Auto (Bld) [#/Vo l]on 03-27-2024 Lymphocytes (Bld) [#/Vol] 1.3 10 3/uL 1.2-3.8 [facility] Lymphocytes/100 WBC Auto (Bl d)on 03-27-2024 Lymphocytes/100 WBC (Bld) 13.3 % Low 20.5-60.0 [facility] MCH Auto (RBC) [Entitic mass ]on 03-27-2024 MCH (RBC) [Entitic mass] 29.2 pg 26.7-34.0 [facility] MCHC Auto (RBC) [Mass/Vol]on 03-27-2024 MCHC (RBC) [Mass/Vol] 32.4 g/dL 29.9-35.2 [facility] MCV Auto (RBC) [Entitic vol] on 03-27-2024 MCV (RBC) [Entitic vol] 90.3 fL 81.0-99.0 [facility] Monocytes Auto (Bld) [#/Vol] on 03-27-2024 Monocytes (Bld) [#/Vol] 0.8 10 3/uL 0.3-0.8 [facility] Monocytes/100 WBC Auto (Bld) on 03-27-2024 Monocytes/100 WBC (Bld) 8.4 % 1.7-12.0 [facility] Neutrophils Auto (Bld) [#/Vo l]on 03-27-2024 Neutrophils (Bld) [#/Vol] 7.4 10 3/uL High 1.4-6.5 [facility] Neutrophils/100 WBC Auto (Bl d)on 03-27-2024 Neutrophils/100 WBC (Bld) 76.1 % High 43.0-75.0 [facility] No Panel Informationon 03-27 Eosinophils # (Auto) 0.1 10 3/uL 0.0-0.7 [facility] Immature Granulocyte # (Auto) 0.03 10 3/uL 0.00-0.03 [facility] 4572.0 pg/mL High <=1800.0 [facility] 1.7 mg/dL Low 1.8-2.4 [facility] 11.2 % High 4.5-6.2 [facility] 2.6 g/dL Low 3.4-5.0 [facility] 0.1 10 3/uL 0.0-0.7 [facility] 89 U/L 46-116 [facility] 12 U/L Low 14-59 [facility] 9 U/L Low 15-37 [facility] 28.6 [facility] 0.03 10 3/uL 0.00-0.03 [facility] 34.0 mg/dL High 7.0-18.0 [facility] 0.3 % 0.0-0.5 [facility] 9.1 mg/dL 8.5-10.1 [facility] 99 mmol/L 98-107 [facility] 28.8 mmol/L 21.0-32.0 [facility] 1.19 mg/dL High 0.55-1.02 [facility] 53 Low >=60 [facility] 273 mg/dL High 74-106 [facility] 3.6 mmol/L 3.5-5.1 [facility] 135 mmol/L Low 136-145 [facility] 0.9 mg/dL 0.2-1.0 [facility] 7.2 g/dL 6.4-8.2 [facility] Platelet mean volume Auto (B ld) [Entitic vol]on 03-27-2024 Platelet mean volume (Bld) [Entitic vol] 10.6 fL 9.5-13.5 [facility] Platelets Auto (Bld) [#/Vol] on 03-27-2024 Platelets (Bld) [#/Vol] 204 10 3/uL 150-450 [facility] RBC Auto (Bld) [#/Vol]on RBC (Bld) [#/Vol] 4.14 10 6/uL Low 4.20-5.40 [facility] Serum or plasma albumin/glob ulin mass ratioon 03-27-2024 Albumin/Globulin [Mass ratio] 0.6 {ratio} [facility] Serum or plasma anion gap de terminationon 03-27-2024 Anion gap [Moles/Vol] 10.8 mmol/L Fi [facility] Basophils Auto (Bld) [#/Vol] on 03-26-2024 Basophils (Bld) [#/Vol] 0.1 10 3/uL 0.0-0.1 [facility] Basophils/100 WBC Auto (Bld) on 03-26-2024 Basophils/100 WBC (Bld) 0.8 % 0.2-2.0 [facility] Eosinophils/100 WBC Auto (Bl d)on 03-26-2024 Eosinophils/100 WBC (Bld) 1.2 % 0.9-7.0 [facility] Erythrocyte distribution wid th Auto (RBC) [Ratio]on 03-26-2024 Erythrocyte distribution width (RBC) [Ratio] 14.5 % 11.0-15.0 [facility] Estimated glomerular filtrat ion rate (GFR) non- Americanon 03-26-2024 GFR/1.73 sq M.predicted among non-blacks MDRD (S/P/Bld) [Vol rate/Area] 46 mL/min/{1.73_m2} Low >=60 [facility] Glucose mean value [Mass/vol ume] in Blood Estimated from glycated hemoglobinon 03-26-2024 Average glucose Estimated from glycated hemoglobin (Bld) [Mass/Vol] 275 mg/dL [facility] Hematocrit Auto (Bld) [Volum e fraction]on 03-26-2024 Hematocrit (Bld) [Volume fraction] 40.1 % 36.0-48.0 [facility] Hemoglobin [Mass/volume] in Bloodon 03-26-2024 Hemoglobin (Bld) [Mass/Vol] 12.7 g/dL 12.0-16.0 [facility] Laboratory - Chemistry and C hemistry - challengeon 03-26-2024 Calcium [Mass/Vol] 9.1 mg/dL 8.5-10.1 [facility] Chloride [Moles/Vol] 102 mmol/L 98-107 [facility] CO2 [Moles/Vol] 28.5 mmol/L 21.0-32.0 [facility] Creatinine [Mass/Vol] 1.14 mg/dL High 0.55-1.02 [facility] Free T4 [Mass/Vol] 1.29 ng/dL 0.76-1.46 [facility] GFR/1.73 sq M.predicted MDRD (S/P/Bld) [Vol rate/Area] 56 mL/min/{1.73_m2} Low >=60 [facility] Glucose [Mass/Vol] 246 mg/dL High 74-106 [facility] Natriuretic peptide B (Bld) [Mass/Vol] 2890.0 pg/mL High <=1800.0 [facility] Comment on above: RESULTS CALLED TO YOEL ROBIN RN @BY Alla Kunz 0556 Potassium [Moles/Vol] 4.3 mmol/L 3.5-5.1 [facility] Sodium [Moles/Vol] 136 mmol/L 136-145 [facility] TSH Qn 6.001 m[IU]/L High 0.358-3.740 [facility] Urea nitrogen [Mass/Vol] 35.0 mg/dL High 7.0-18.0 [facility] Urea nitrogen/Creatinine [Mass ratio] 30.7 mg/mg [facility] Laboratory - Hematology and Cell countson 03-26-2024 HbA1c (Bld) [Mass fraction] 11.2 % High 4.5-6.2 [facility] Comment on above: ADA RECOMMENDED LIMI T 4.0 - 6.0ADA THERAPEUTIC TARGET < 7.0ACTION SUGGESTED> 7.0 Immature granulocytes/100 WBC (Bld) 0.2 % 0.0-0.5 [facility] Leukocytes [#/volume] correc gali for nucleated erythrocytes in Blood by Automated counon 03-26-2024 WBC corrected for nucl RBC Auto (Bld) [#/Vol] 8.3 10 3/uL 4.0-11.0 [facility] Lymphocytes Auto (Bld) [#/Vo l]on 03-26-2024 Lymphocytes (Bld) [#/Vol] 1.4 10 3/uL 1.2-3.8 [facility] Lymphocytes/100 WBC Auto (Bl d)on 03-26-2024 Lymphocytes/100 WBC (Bld) 16.5 % Low 20.5-60.0 [facility] MCH Auto (RBC) [Entitic mass ]on 03-26-2024 MCH (RBC) [Entitic mass] 29.1 pg 26.7-34.0 [facility] MCHC Auto (RBC) [Mass/Vol]on 03-26-2024 MCHC (RBC) [Mass/Vol] 31.7 g/dL 29.9-35.2 [facility] MCV Auto (RBC) [Entitic vol] on 03-26-2024 MCV (RBC) [Entitic vol] 92.0 fL 81.0-99.0 [facility] Monocytes Auto (Bld) [#/Vol] on 03-26-2024 Monocytes (Bld) [#/Vol] 0.7 10 3/uL 0.3-0.8 [facility] Monocytes/100 WBC Auto (Bld) on 03-26-2024 Monocytes/100 WBC (Bld) 7.9 % 1.7-12.0 [facility] Neutrophils Auto (Bld) [#/Vo l]on 03-26-2024 Neutrophils (Bld) [#/Vol] 6.1 10 3/uL 1.4-6.5 [facility] Neutrophils/100 WBC Auto (Bl d)on 03-26-2024 Neutrophils/100 WBC (Bld) 73.4 % 43.0-75.0 [facility] No Panel Informationon 03-26 Eosinophils # (Auto) 0.1 10 3/uL 0.0-0.7 [facility] Immature Granulocyte # (Auto) 0.02 10 3/uL 0.00-0.03 [facility] Troponin I High Sensitivity 12.4 pg/mL 4.0-51.3 [facility] Comment on above: CUT-OFF POINTS [...] AND CLINICAL INFORMATION. 1.29 ng/dL 0.76-1.46 [facility] 6.001 u[iU]/mL High 0.358-3.740 [facility] 2890.0 pg/mL High <=1800.0 [facility] 12.4 pg/mL 4.0-51.3 [facility] 11.2 % High 4.5-6.2 [facility] 30.7 [facility] 35.0 mg/dL High 7.0-18.0 [facility] 0.1 10 3/uL 0.0-0.7 [facility] 9.1 mg/dL 8.5-10.1 [facility] 102 mmol/L 98-107 [facility] 28.5 mmol/L 21.0-32.0 [facility] 1.14 mg/dL High 0.55-1.02 [facility] 0.02 10 3/uL 0.00-0.03 [facility] 56 Low >=60 [facility] 0.2 % 0.0-0.5 [facility] 246 mg/dL High 74-106 [facility] 4.3 mmol/L 3.5-5.1 [facility] 136 mmol/L 136-145 [facility] Platelet mean volume Auto (B ld) [Entitic vol]on 03-26-2024 Platelet mean volume (Bld) [Entitic vol] 10.8 fL 9.5-13.5 [facility] Platelets Auto (Bld) [#/Vol] on 03-26-2024 Platelets (Bld) [#/Vol] 225 10 3/uL 150-450 [facility] RBC Auto (Bld) [#/Vol]on RBC (Bld) [#/Vol] 4.36 10 6/uL 4.20-5.40 [facility] Serum or plasma anion gap de terminationon 03-26-2024 Anion gap [Moles/Vol] 9.8 mmol/L [facility] MR cervical spine wo conon 0 03-13-2024 MR cervical spine wo con [facility] [place] [address] MRI Report Signed Patient: Joe Call MR#: [id number] 0 : 1945 Acct:[id number] Age/Sex: 78 / F ADM Date: 03/13/24 Loc: [facility] Room: Type: [facility] Attending Dr: Eloina [...] Jarred Randolph M.D.03/13/2024 3:47 PM Dictation Location: [place] [address] Transcribed By: [facility] 03/13/24 154 Dictated By: Jarred Randolph DO 03/13/241541 Signed By: 03/13/24 1547 Normal [facility] XR pre/post mri xrayon 03-13 XR pre/post mri xray [facility] [place] [address] [place] [address] MRI Report Signed Patient: Joe Call MR#: [id number] 0 : 1945 Acct:[id number] Age/Sex: 78 / F ADM Date: 03/13/24 Loc: [facility] Room: Type: [facility] Attending Dr: Eloina Hussein MD Copies to: Eloina Mullins MD Ordering Provider: Eloina Mullins MD Date of Service: 03/13/24 MR/MR lumbar spine wo con: M54.50 ([id number]) XR/XR pre/post mri xray: M54.50 MRI Lumbar [...] Jarred Randolph M.D.03/13/2024 3:58 PM Dictation Location: [place] [address] Transcribed By: [facility] 03/13/24 1558 Dictated By: Jarred Randolph DO 03/13/24 1551 Signed By: 03/13/24 1558 Normal [facility] Office Visiton 03-07-2024 Follow-up visit [id number] Joe Call 1945 F Date Provider Department Center 03/07/2024 [facility] DEAN Family History Problem Relation Age of Onset Coronary artery disease Other Diabetes Other Polycystic kidney disease Other Family Status - Relation Status Age at Other Level of Service:36493 IN OFFICE/OUTPATIENT ESTABLISHED MOD MDM 30 MIN Reason for Visit and Comments: Follow-up [201795] - 6 month Normal [facility] GI PANEL (PCR)on 03-06-2023 Adenovirus F 40/41 Not detected Normal NOT DETECTED [facility] Comment on above: Performed By: #### P OCGLUC #### [facility] [address] [place] [address] Dr. Kasia Nath Astrovirus Not detected Normal NOT DETECTED [facility] Comment on above: Performed By: #### P OCGLUC #### [facility] [address] [place] [address] Dr. Kasia Ntah C. Diff toxin A/B Detected Critically abnormal NOT DETECTED [facility] Comment on above: Performed By: #### P OCGLUC #### [facility] [address] [place] [address] Dr. Kasia Nath Campylobacter Detected Critically abnormal NOT DETECTED [facility] Comment on above: Performed By: #### P OCGLUC #### [facility] [address] [place] [address] Dr. Kasia Nath Cryptosporidium Not detected Normal NOT DETECTED [facility] Comment on above: Performed By: #### P OCGLUC #### [facility] [address] [place] [address] Dr. Kasia Nath Cyclos. Cayetanensis Not detected Normal NOT DETECTED [facility] Comment on above: Performed By: #### P OCGLUC #### [facility] [address] [place] [address] Dr. Kasia Nath E. Coli O157 Not Applicable Normal Not Applicable [facility] Comment on above: Performed By: #### P OCGLUC #### [facility] [address] [place] [address] Dr. Kasia Nath E. histolytica Not detected Normal NOT DETECTED [facility] Comment on above: Performed By: #### P OCGLUC #### [facility] [address] [place] [address] Dr. Kasia Nath EAEC Not detected Normal NOT DETECTED [facility] Comment on above: Performed By: #### P OCGLUC #### [facility] [address] [place] [address] Dr. Kasia Nath EIEC Not detected Normal NOT DETECTED [facility] Comment on above: Performed By: #### P OCGLUC #### [facility] [address] [address] [address] Kasia Nath EPEC Not detected Normal NOT DETECTED [facility] Comment on above: Performed By: #### P OCGLUC #### [facility] [address] [address] [address] Kasia Nath ETEC Not detected Normal NOT DETECTED [facility] Comment on above: Performed By: #### P OCGLUC #### [facility] [address] [address] [address] Kasia Nath G. Lamblia Not detected Normal NOT DETECTED [facility] Comment on above: Performed By: #### P OCGLUC #### [facility] [address] [place] [address] Dr. Kasia KHAN CONTROLS PASSED Normal [facility] Comment on above: Performed By: #### P OCGLUC #### [facility] [address] [address] [address] Kasia FRAIRE HEADER GI PANEL BACTERIA Normal T [facility] Comment on above: Performed By: #### P OCGLUC #### [facility] [address] [place] [address] Dr. Kasia GE ECOLI GI PANEL DIARRHEAGENIC E.COLI / SHIGELLA Normal [facility] Comment on above: Performed By: #### P OCGLUC #### [facility] [address] [place] [address] Dr. Kasia GE INFO SEE BELOW Normal [facility] Comment on above: Result Comment: EAEC - Enteroaggregative E. Coli EPEC- Enteropathogenic E. Coli ETEC- Enterotoxigenic E. Coli lt/st STEC- Shigella-like toxin-producing E. Coli stx1/stx2 EIEC- Shigella/Enteroinvasive E. Coli Performed By: #### P OCGLUC #### [facility] [address] [place] [address] Dr. Kasia GE PARASITES GI PANEL PARASITES Normal [facility] Comment on above: Performed By: #### P OCGLUC #### [facility] [address] [address] [address] [facility] VIRUSES Normal [facility] Comment on above: Performed By: #### P OCGLUC #### [facility] [address] [address] [address] Kasia Nath Norovirus GI/GII Not detected Normal NOT DETECTED [facility] Comment on above: Performed By: #### P OCGLUC #### [facility] [address] [address] [address] Kasia Nath P. Shigelloides Not detected Normal NOT DETECTED [facility] Comment on above: Performed By: #### P OCGLUC #### [facility] [address] [address] [address] Kasia Nath Rotavirus A Not detected Normal NOT DETECTED [facility] Comment on above: Performed By: #### P OCGLUC #### [facility] [address] [address] [address] Kasia Nath Salmonella Not detected Normal NOT DETECTED [facility] Comment on above: Performed By: #### P OCGLUC #### [facility] [address] [address] [address] Kasia Nath Sapovirus Not detected Normal NOT DETECTED [facility] Comment on above: Performed By: #### P OCGLUC #### [facility] [address] [place] [address] Dr. Kasia Nath STEC Not detected Normal NOT DETECTED [facility] Comment on above: Performed By: #### P OCGLUC #### [facility] [address] [address] [address] Kasia Nath Vibrio Not detected Normal NOT DETECTED [facility] Comment on above: Performed By: #### P OCGLUC #### [facility] [address] [place] [address] Dr. Kasia Nath Vibrio Cholera Not detected Normal NOT DETECTED [facility] Comment on above: Performed By: #### P OCGLUC #### [facility] [address] [place] [address] Dr. Yilan Nath Y. Enterocolitica Not detected Normal NOT DETECTED [facility] Comment on above: Performed By: #### P OCGLUC #### [facility] [address] [place] [address] Dr. Kasia Nath CBC AUTO DIFFon 02-14-2023 BASO # 0.0 103/ul Normal 0.0-0.1 [facility] Comment on above: Performed By: #### P OCGLUC #### [facility] [address] [place] [address] Dr. Kasia Nath Basophils/100 WBC (Bld) 0.5 % Normal 0.2-2.0 [facility] Comment on above: Performed By: #### P OCGLUC #### [facility] [address] [place] [address] Dr. Kasia Nath EO # 0.2 103/ul Normal 0.0-0.7 [facility] Comment on above: Performed By: #### P OCGLUC #### [facility] [address] [place] [address] Dr. Kasia Nath Eosinophils/100 WBC (Bld) 2.7 % Normal 0.9-7.0 [facility] Comment on above: Performed By: #### P OCGLUC #### [facility] [address] [place] [address] Dr. Kasia Nath Erythrocyte distribution width (RBC) [Ratio] 13.0 % Normal 11.0-15.0 [facility] Comment on above: Performed By: #### P OCGLUC #### [facility] [address] [place] [address] Dr. Kasia Nath Hematocrit (Bld) [Volume fraction] 35.9 % Critically low 36.0-48.0 [facility] Comment on above: Performed By: #### P OCGLUC #### [facility] [address] [place] [address] Dr. Kasia Nath Hemoglobin (Bld) [Mass/Vol] 12.0 g/dL Normal 12.0-16.0 [facility] Comment on above: Performed By: #### P OCGLUC #### [facility] [address] [address] [address] Kasia Nath IG # 0.02 10e3/ul Normal 0.00-0.03 [facility] Comment on above: Performed By: #### P OCGLUC #### [facility] [address] [place] [address] Dr. Kasia Nath IG % 0.3 % Normal 0.0-0.5 [facility] Comment on above: Performed By: #### P OCGLUC #### [facility] [address] [place] [address] Dr. Kasia Nath LYMPH # 1.8 103/ul Normal 1.2-3.8 [facility] Comment on above: Performed By: #### P OCGLUC #### [facility] [address] [place] [address] Dr. Kasia Nath Lymphocytes/100 WBC (Bld) 22.8 % Normal 20.5-60.0 [facility] Comment on above: Performed By: #### P OCGLUC #### [facility] [address] [place] [address] Dr. Kasia Nath MANUAL DIFF REQ NO Normal [facility] Comment on above: Performed By: #### P OCGLUC #### [facility] [address] [place] [address] Dr. Kasia Nath MCH (RBC) [Entitic mass] 29.4 pg Normal 26.7-34.0 [facility] Comment on above: Performed By: #### P OCGLUC #### [facility] [address] [place] [address] Dr. Kasia Nath MCHC (RBC) [Mass/Vol] 33.4 g/dL Normal 29.9-35.2 [facility] Comment on above: Performed By: #### P OCGLUC #### [facility] [address] [place] [address] Dr. Kasia Nath MCV (RBC) [Entitic vol] 88.0 fL Normal 81.0-99.0 [facility] Comment on above: Performed By: #### P OCGLUC #### [facility] [address] [place] [address] Dr. Kasia Nath MONO # 0.7 103/ul Normal 0.3-0.8 [facility] Comment on above: Performed By: #### P OCGLUC #### [facility] [address] [address] [address] Kasia Nath Monocytes/100 WBC (Bld) 9.3 % Normal 1.7-12.0 [facility] Comment on above: Performed By: #### P OCGLUC #### [facility] [address] [address] [address] Kasia Nath NEUT # 5.1 103/ul Normal 1.4-6.5 [facility] Comment on above: Performed By: #### P OCGLUC #### [facility] [address] [place] [address] Dr. Kasia Nath Neutrophils/100 WBC (Bld) 64.4 % Normal 43.0-75.0 [facility] Comment on above: Performed By: #### P OCGLUC #### [facility] [address] [place] [address] Dr. Kasia Nath Platelet mean volume (Bld) [Entitic vol] 11.7 fL Normal 9.5-13.5 [facility] Comment on above: Performed By: #### P OCGLUC #### [facility] [address] [place] [address] Dr. Kasia Nath PLT 175 103/ul Normal 150-450 [facility] Comment on above: Performed By: #### P OCGLUC #### [facility] [address] [address] [address] Kasia Nath RBC 4.08 106/ul Critically low 4.20-5.[address] [facility] Comment on above: Performed By: #### P OCGLUC #### [facility] [address] [address] [address] Kasia Nath WBC 7.9 103/ul Normal 4.0-11.0 [facility] Comment on above: Performed By: #### P OCGLUC #### [facility] [address] [address] [address] Kasia Nath LIPASEon 02-14-2023 Lipase [Catalytic activity/Vol] 51.0 U/L Critically low 73.0-393.0 [facility] Comment on above: Performed By: #### L IPA, CMP ####[facility] [address] [place], [place] [address]DrDoreen Nath PROF 14(COMP METB)on 023 Albumin [Mass/Vol] 2.8 g/dL Critically low 3.4-5.0 [facility] Comment on above: Performed By: #### L IPA, CMP ####[facility] [address] [place], [place] [address]Dr. Kasia Nath Albumin/Globulin [Mass ratio] 0.7 {ratio} Normal [facility] Comment on above: Performed By: #### L IPA, CMP ####[facility] [address] [place], [place] [address]Dr. Kasia Nath ALP [Catalytic activity/Vol] 90 U/L Normal 46-116 [facility] Comment on above: Performed By: #### L IPA, CMP ####[facility] [address] [place], [place] [address]Dr. Kasia Nath ALT [Catalytic activity/Vol] 15 U/L Normal 14-59 [facility] Comment on above: Performed By: #### L IPA, CMP ####[facility] [address] [place], [place] [address]Dr. Kasia Nath Anion gap [Moles/Vol] 15.6 mmol/L Normal [facility] Comment on above: Performed By: #### L IPA, CMP ####[facility] [address] [place], [place] [address]Dr. Kasia Nath AST [Catalytic activity/Vol] 9 U/L Critically low 15-37 [facility] Comment on above: Performed By: #### L IPA, CMP ####[facility] [address] [place], [place] [address]Dr. Kasia Nath Bilirubin [Mass/Vol] 0.4 mg/dL Normal 0.2-1.0 [facility] Comment on above: Performed By: #### L IPA, CMP ####[facility] [address] [address]Dr. Kasia Nath Calcium [Mass/Vol] 9.1 mg/dL Normal 8.5-10.1 [facility] Comment on above: Performed By: #### L IPA, CMP ####[facility] [address] [address]Dr. Kasia Nath Chloride [Moles/Vol] 104 mmol/L Normal 98-107 [facility] Comment on above: Performed By: #### L IPA, CMP ####[facility] [address] [place], [place] [address]Dr. Kasia Nath CO2 [Moles/Vol] 17.0 mmol/L Critically low 21.0-32.0 [facility] Comment on above: Performed By: #### L IPA, CMP ####[facility] [address] [place], [place] [address]Dr. Kasia Nath Creatinine [Mass/Vol] 1.78 mg/dL Critically high 0.55-1.02 [facility] Comment on above: Performed By: #### L IPA, CMP ####[facility] [address] [place], [place] [address]Dr. Kasia Nath EGFR-AF GREENLANDIC 34 mL/min/1.73m2 Critically low >=60 [facility] Comment on above: Performed By: #### L IPA, CMP ####[facility] [address] [place], [place] [address]Dr. Kasia Portillo EGFR-NON AF GREENLANDIC 28 mL/min/1.73m2 Critically low >=60 [facility] Comment on above: Performed By: #### L IPA, CMP ####[facility] [address] [place], [place] [address]Dr. Kasia Nath Globulin (S) [Mass/Vol] 4.3 g/dL Normal [facility] Comment on above: Performed By: #### L IPA, CMP ####[facility] [address] [place], [place] [address]Dr. Kasia Portillo Glucose [Mass/Vol] 248 mg/dL Critically high 74-106 [facility] Comment on above: Performed By: #### L IPA, CMP ####[facility] [address] [address]Dr. Kasia Nath Potassium [Moles/Vol] 4.6 mmol/L Normal 3.5-5.1 [facility] Comment on above: Performed By: #### L IPA, CMP ####[facility] [address] [place], [place] [address]Dr. Kasia Nath Protein [Mass/Vol] 7.1 g/dL Normal 6.4-8.2 [facility] Comment on above: Performed By: #### L IPA, CMP ####[facility] [address] [place], [place] [address]Dr. Kasia Nath Sodium [Moles/Vol] 132 mmol/L Critically low 136-145 [facility] Comment on above: Performed By: #### L IPA, CMP ####[facility] [address] [place], [place] [address]Dr. Kasia Nath Urea nitrogen [Mass/Vol] 78.0 mg/dL Critically high 7.0-18.0 [facility] Comment on above: Performed By: #### L IPA, CMP ####[facility] [address] [place], [place] [address]Dr. Kasia Nath Urea nitrogen/Creatinine [Mass ratio] 43.8 mg/mg Normal [facility] Comment on above: Performed By: #### L IPA, CMP ####[facility] [address] [place], [place] [address]Dr. Fartuncristy Portillo CBC AUTO DIFFon 02-13-2023 BASO # 0.0 103/ul Normal 0.0-0.1 [facility] Comment on above: Performed By: #### C BC ####[facility] [address] [place], [place] [address]Dr. Kasia Nath Basophils/100 WBC (Bld) 0.5 % Normal 0.2-2.0 [facility] Comment on above: Performed By: #### C BC ####[facility] [address] [place], [place] [address]Dr. Kasia Nath EO # 0.1 103/ul Normal 0.0-0.7 [facility] Comment on above: Performed By: #### C BC ####[facility] [address] [address]Dr. Kasia Nath Eosinophils/100 WBC (Bld) 1.0 % Normal 0.9-7.0 [facility] Comment on above: Performed By: #### C BC ####[facility] [address] [address]Dr. Kasia Nath Erythrocyte distribution width (RBC) [Ratio] 12.8 % Normal 11.0-15.0 [facility] Comment on above: Performed By: #### C BC ####[facility] [address] [place], [place] [address]Dr. Kasia Nath Hematocrit (Bld) [Volume fraction] 38.5 % Normal 36.0-48.0 [facility] Comment on above: Performed By: #### C BC ####[facility] [address] [place], [place] [address]Dr. Kasia Nath Hemoglobin (Bld) [Mass/Vol] 13.0 g/dL Normal 12.0-16.0 [facility] Comment on above: Performed By: #### C BC ####[facility] [address] [place], [place] [address]Dr. Kasia Nath IG # 0.02 10e3/ul Normal 0.00-0.03 [facility] Comment on above: Performed By: #### C BC ####[facility] [address] [address]Dr. Kasia Nath IG % 0.2 % Normal 0.0-0.5 [facility] Comment on above: Performed By: #### C BC ####[facility] [address] [place], [place] [address]Dr. Kasia Nath LYMPH # 0.9 103/ul Critically low 1.2-3.8 [facility] Comment on above: Performed By: #### C BC ####[facility] [address] [address]Dr. Kasia Nath Lymphocytes/100 WBC (Bld) 10.0 % Critically low 20.5-60.0 [facility] Comment on above: Performed By: #### C BC ####[facility] [address] [address]Dr. Fartuncristy Nath MANUAL DIFF REQ NO Normal [facility] Comment on above: Performed By: #### C BC ####[facility] [address] [place], [place] [address]Dr. Fartuncristy Nath MCH (RBC) [Entitic mass] 29.5 pg Normal 26.7-34.0 [facility] Comment on above: Performed By: #### C BC ####[facility] [address] [place], [place] [address]Dr. Kasia Nath MCHC (RBC) [Mass/Vol] 33.8 g/dL Normal 29.9-35.2 [facility] Comment on above: Performed By: #### C BC ####[facility] [address] [place], [place] [address]Dr. Kasia Nath MCV (RBC) [Entitic vol] 87.5 fL Normal 81.0-99.0 [facility] Comment on above: Performed By: #### C BC ####[facility] [address] [place], [place] [address]Dr. Kasia Nath MONO # 0.5 103/ul Normal 0.3-0.8 [facility] Comment on above: Performed By: #### C BC ####[facility] [address] [place], [place] [address]Dr. Kasia Nath Monocytes/100 WBC (Bld) 5.7 % Normal 1.7-12.0 [facility] Comment on above: Performed By: #### C BC ####[facility] [address] [place], [place] [address]Dr. Kasia Nath NEUT # 7.2 103/ul Critically high 1.4-6.5 [facility] Comment on above: Performed By: #### C BC ####[facility] [address] [place], [place] [address]Jo. Kasia Nath Neutrophils/100 WBC (Bld) 82.6 % Critically high 43.0-75.0 [facility] Comment on above: Performed By: #### C BC ####[facility] [address] [id number]. Kasia Nath Platelet mean volume (Bld) [Entitic vol] 11.8 fL Normal 9.5-13.5 [facility] Comment on above: Performed By: #### C BC ####[facility] [address] [id number]. Kasia Nath PLT 187 103/ul Normal 150-450 [facility] Comment on above: Performed By: #### C BC ####[facility] [address] [id number]. Kasia Nath RBC 4.40 106/ul Normal 4.20-5.40 [facility] Comment on above: Performed By: #### C BC ####[facility] [address] [id number]. Kasia Nath WBC 8.8 103/ul Normal 4.0-11.0 [facility] Comment on above: Performed By: #### C BC ####[facility] [id number]. Kasia Nath CT ABD/PELVIS WO CONon 02-13 [...] JACOB MCCURDY Date: 2023-02-13 14:40 Normal [facility] CULTURE URINEon 02-13-2023 CULTURE URINE Culture Observations : LIGHT GROWTH OF MIXED GENITAL VON. NO POTENTIAL PATHOGENS SEEN. Normal [facility] Comment on above: Performed By: #### U RCX ####[facility] [address] [place], [place] [address]Om. Kasia Portillo [facility]on SARS-CoV-2 (COVID-19) RNA FERN+probe Ql (Unsp spec) Not detected Normal NOT DETECTED [facility] Comment on above: Result Comment: [...] for this test is supported by the [place] of Health and Human Service's declaration that [...] used). Performed By: #### P OCGLUC #### [facility] [address] [place] [address] Dr. Kasia Nath GI PANEL (PCR)on 02-13-2023 Adenovirus F 40/41 Not detected Normal NOT DETECTED [facility] Comment on above: Performed By: #### C BC #### [facility] [address] [place] [address] Dr. Kasia Nath Astrovirus Not detected Normal NOT DETECTED [facility] Comment on above: Performed By: #### C BC #### [facility] [address] [place] [address] Dr. Kasia Nath C. Diff toxin A/B Not detected Normal NOT DETECTED [facility] Comment on above: Performed By: #### C BC #### [facility] [address] [place] [address] Dr. Kasia Nath Campylobacter Not detected Normal NOT DETECTED [facility] Comment on above: Performed By: #### C BC #### [facility] [address] [place] [address] Dr. Kasia Nath Cryptosporidium Not detected Normal NOT DETECTED [facility] Comment on above: Performed By: #### C BC #### [facility] [address] [place] [address] Dr. Kasia Nath Cyclos. Cayetanensis Not detected Normal NOT DETECTED [facility] Comment on above: Performed By: #### C BC #### [facility] [address] [place] [address] Dr. Kasia Nath E. Coli O157 Not Applicable Normal Not Applicable [facility] Comment on above: Performed By: #### C BC #### [facility] [address] [place] [address] Dr. Kasia Nath E. histolytica Not detected Normal NOT DETECTED [facility] Comment on above: Performed By: #### C BC #### [facility] [address] [place] [address] Dr. Kasia Nath EAEC Not detected Normal NOT DETECTED [facility] Comment on above: Performed By: #### C BC #### [facility] [address] [place] [address] Dr. Kasia Nath EIEC Not detected Normal NOT DETECTED [facility] Comment on above: Performed By: #### C BC #### [facility] [address] [place] [address] Dr. Kasia Nath EPEC Not detected Normal NOT DETECTED [facility] Comment on above: Performed By: #### C BC #### [facility] [address] [place] [address] Dr. Kaisa aNth ETEC Not detected Normal NOT DETECTED [facility] Comment on above: Performed By: #### C BC #### [facility] [address] [place] [address] Dr. Kasia Nath G. Lamblia Not detected Normal NOT DETECTED [facility] Comment on above: Performed By: #### C BC #### [facility] [address] [place] [address] Dr. Kasia KHAN CONTROLS PASSED Normal [facility] Comment on above: Performed By: #### C BC #### [facility] [address] [place] [address] Dr. Kasia FRAIRE HEADER GI PANEL BACTERIA Normal T [facility] Comment on above: Performed By: #### C BC #### [facility] [address] [place] [address] Dr. Kasia GE ECOLI GI PANEL DIARRHEAGENIC E.COLI / SHIGELLA Normal [facility] Comment on above: Performed By: #### C BC #### [facility] [address] [place] [address] Dr. Kasia GE INFO SEE BELOW [facility] Comment on above: Result Comment: EAEC - Enteroaggregative E. Coli EPEC- Enteropathogenic E. Coli ETEC- Enterotoxigenic E. Coli lt/st STEC- Shigella-like toxin-producing E. Coli stx1/stx2 EIEC- Shigella/Enteroinvasive E. Coli Performed By: #### C BC #### [facility] [address] [place] [address] Dr. Kasia GE PARASITES GI PANEL PARASITES Normal [facility] Comment on above: Performed By: #### C BC #### [facility] [address] [place] [address] Dr. Kasia Nath GIPHD VIRUS GI PANEL VIRUSES Normal [facility] Comment on above: Performed By: #### C BC #### [facility] [address] [address] [address] Kasia Nath Norovirus GI/GII Not detected Normal NOT DETECTED [facility] Comment on above: Performed By: #### C BC #### [facility] [address] [place] [address] Dr. Kasia Nath P. Shigelloides Not detected Normal NOT DETECTED [facility] Comment on above: Performed By: #### C BC #### [facility] [address] [place] [address] Dr. Kasia Nath Rotavirus A Not detected Normal NOT DETECTED [facility] Comment on above: Performed By: #### C BC #### [facility] [address] [place] [address] Dr. Kasia Nath Salmonella Not detected Normal NOT DETECTED [facility] Comment on above: Performed By: #### C BC #### [facility] [address] [place] [address] Dr. Kasia Nath Sapovirus Not detected Normal NOT DETECTED [facility] Comment on above: Performed By: #### C BC #### [facility] [address] [place] [address] Dr. Kasia Nath STEC Not detected Normal NOT DETECTED [facility] Comment on above: Performed By: #### C BC #### [facility] [address] [place] [address] Dr. Kasia Nath Vibrio Not detected Normal NOT DETECTED [facility] Comment on above: Performed By: #### C BC #### [facility] [address] [place] [address] Dr. Kasia Nath Vibrio Cholera Not detected Normal NOT DETECTED [facility] Comment on above: Performed By: #### C BC #### [facility] [address] [place] [address] Dr. Kasia Nath Y. Enterocolitica Not detected Normal NOT DETECTED [facility] Comment on above: Performed By: #### C BC #### [facility] [address] [place] [address] Dr. Kasia Nath LACTATE/LACTIC ACIDon 2022 Lactate [Moles/Vol] 1.7 mmol/L Normal 0.4-2.0 [facility] Comment on above: Performed By: #### L ACT ####[facility] [address] [address]Dr. Kasia Nath LIPASEon 02-13-2023 Lipase [Catalytic activity/Vol] 82.0 U/L Normal 73.0-393.0 [facility] Comment on above: Performed By: #### L IPA, CMP #### [facility] [address] [place] [address] Dr. Kasia Nath POINT OF CARE GLUCOSEon Glucose [Mass/Vol] 229 mg/dL Critically high 74-106 [facility] Comment on above: Performed By: #### P OCGLUC #### [facility] [address] [place] [address] Dr. Kasia Nath Glucose [Mass/Vol] 474 mg/dL Critically high 74-106 [facility] Comment on above: Performed By: #### P OCGLUC #### [facility] [address] [place] [address] Dr. Kasia Nath PROF 14(COMP METB)on 023 Albumin [Mass/Vol] 3.4 g/dL Normal 3.4-5.0 [facility] Comment on above: Performed By: #### L IPA, CMP #### [facility] [address] [place] [address] Dr. Kasia Nath Albumin/Globulin [Mass ratio] 0.7 {ratio} Normal [facility] Comment on above: Performed By: #### L IPA, CMP #### [facility] [address] [place] [address] Dr. Kasia Nath ALP [Catalytic activity/Vol] 106 U/L Normal 46-116 [facility] Comment on above: Performed By: #### L IPA, CMP #### [facility] [address] [address] [address] Kasia Nath ALT [Catalytic activity/Vol] 21 U/L Normal 14-59 [facility] Comment on above: Performed By: #### L IPA, CMP #### [facility] [address] [address] [address] Kasia Nath Anion gap [Moles/Vol] 17.7 mmol/L Normal [facility] Comment on above: Performed By: #### L IPA, CMP #### [facility] [address] [address] [address] Kasia Nath AST [Catalytic activity/Vol] 11 U/L Critically low 15-37 [facility] Comment on above: Performed By: #### L IPA, CMP #### [facility] [address] [address] [address] Kasia Nath Bilirubin [Mass/Vol] 0.5 mg/dL Normal 0.2-1.0 [facility] Comment on above: Performed By: #### L IPA, CMP #### [facility] [address] [address] [address] Kasia Nath Calcium [Mass/Vol] 9.6 mg/dL Normal 8.5-10.1 [facility] Comment on above: Performed By: #### L IPA, CMP #### [facility] [address] [address] [address] Kasia Nath Chloride [Moles/Vol] 99 mmol/L Normal 98-107 [facility] Comment on above: Performed By: #### L IPA, CMP #### [facility] [address] [address] [address] Kasia Nath CO2 [Moles/Vol] 20.6 mmol/L Critically low 21.0-32.0 [facility] Comment on above: Performed By: #### L IPA, CMP #### [facility] [address] [address] [address] Kasia Nath Creatinine [Mass/Vol] 2.14 mg/dL Critically high 0.55-1.02 [facility] Comment on above: Performed By: #### L IPA, CMP #### [facility] [address] [address] [address] Kasia Nath EGFR-AF GREENLANDIC 27 mL/min/1.73m2 Critically low >=60 [facility] Comment on above: Performed By: #### L IPA, CMP #### [facility] [address] [address] [address] Kasia Nath EGFR-NON AF GREENLANDIC 22 mL/min/1.73m2 Critically low >=60 [facility] Comment on above: Performed By: #### L IPA, CMP #### [facility] [address] [address] [address] Kasia Nath Globulin (S) [Mass/Vol] 4.8 g/dL Normal [facility] Comment on above: Performed By: #### L IPA, CMP #### [facility] [address] [address] [address] Kasia Nath Glucose [Mass/Vol] 498 mg/dL Critically high 74-106 [facility] Comment on above: Performed By: #### L IPA, CMP #### [facility] [address] [address] [address] Kasia Nath Potassium [Moles/Vol] 5.3 mmol/L Critically high 3.5-5.1 [facility] Comment on above: Performed By: #### L IPA, CMP #### [facility] [address] [address] [address] Kasia Nath Protein [Mass/Vol] 8.2 g/dL Normal 6.4-8.2 [facility] Comment on above: Performed By: #### L IPA, CMP #### [facility] [address] [address] [address] Kasia Nath Sodium [Moles/Vol] 132 mmol/L Critically low 136-145 [facility] Comment on above: Performed By: #### L IPA, CMP #### [facility] [address] [address] [address] Kasia Nath Urea nitrogen [Mass/Vol] 86.0 mg/dL Critically high 7.0-18.0 [facility] Comment on above: Performed By: #### L IPA, CMP #### [facility] [address] [address] [address] Kasia Nath Urea nitrogen/Creatinine [Mass ratio] 40.2 mg/mg Normal [facility] Comment on above: Performed By: #### L IPA, CMP #### [facility] [address] [address] [address] Kasia Nath UA RANDOM W/MICROSCOPICon BACTERIA TRACE Abnormal NONE SEEN [facility] Comment on above: Performed By: #### U AMIC ####[facility] [address] [address]Dr. Kasia Nath Bilirubin Ql (U) Negative Normal NEGATIVE [facility] Comment on above: Performed By: #### U AMIC ####[facility] [address] [address]Dr. Kasia Nath CAST SEEN Abnormal NONE SEEN [facility] Comment on above: Performed By: #### U AMIC ####[facility] [address] [address]Dr. Kasia Nath Clarity (U) CLEAR Normal CLEAR [facility] Comment on above: Performed By: #### U AMIC ####[facility] [address] [address]Dr. Kasia Nath Color (U) LT. YELLOW Normal YELLOW [facility] Comment on above: Performed By: #### U AMIC ####[facility] [address] [address]Dr. Kasia Nath Crystals LM Nom (Urine sed) NONE SEEN Normal NONE SEEN [facility] Comment on above: Performed By: #### U AMIC ####[facility] [address] [address]Dr. Kasia Nath Epithelial cells LM Ql (Urine sed) FEW Abnormal NONE SEEN /RARE [facility] Comment on above: Performed By: #### U AMIC ####[facility] [address] [place], [place] [address]Dr. Kasia Nath Glucose Ql (U) >1000 Abnormal NEGATIVE [facility] Comment on above: Performed By: #### U AMIC ####[facility] [address] [address]Dr. Kasia Nath Hemoglobin Ql (U) Negative Normal NEGATIVE [facility] Comment on above: Performed By: #### U AMIC ####[facility] [address] [address]Dr. Kasia Nath HYALINE CAST RARE Normal [facility] Comment on above: Performed By: #### U AMIC ####[facility] [address] [place] [address]Dr. Kasia Nath Ketones Ql (U) Negative Normal NEGATIVE [facility] Comment on above: Performed By: #### U AMIC ####[facility] [address] [address]Dr. Kasia Nath LEUKOCYTES Negative Normal NEGATIVE [facility] Comment on above: Performed By: #### U AMIC ####[facility] [address] [place], [place] [address]Dr. Kasia Portillo MUCOUS NONE SEEN Normal NONE SEEN [facility] Comment on above: Performed By: #### U AMIC ####[facility] [address] [place], [place] [address]Dr. Kasia Portillo Nitrite Ql (U) Negative Normal NEGATIVE [facility] Comment on above: Performed By: #### U AMIC ####[facility] [address] [address]Dr. Kasia Nath pH (U) 5.5 [pH] Normal 5-9 [facility] Comment on above: Performed By: #### U AMIC ####[facility] [address] [place], [place] [address]Dr. Kasia Nath RBC 0-2 Normal 0-2 [facility] Comment on above: Performed By: #### U AMIC ####[facility] [address] [place] [address]Dr. Kasia Nath SPEC GRAVITY 1.015 Normal 1.005-<=1.[address] [place] [address] Comment on above: Performed By: #### U AMIC ####[facility] [address] [address]Dr. Kasia Nath UA PROTEIN TRACE Normal NEGATIVE/ TRACE [facility] Comment on above: Performed By: #### U AMIC ####[facility] [address] [address]Dr. Kasia Nath Urobilinogen Qn (U) 0.2 {Meka'U}/dL Normal 0.2 - 1. 0 [facility] Comment on above: Performed By: #### U AMIC ####[facility] [address] [place] [address]Dr. Kasia Nath WBC 0-2 Abnormal NONE SEEN [facility] Comment on above: Performed By: #### U AMIC ####[facility] [address] [place] [address]Dr. Kasia Nath BNPon 01-16-2023 Natriuretic peptide B (Bld) [Mass/Vol] 1675.0 pg/mL Normal <=1,800.0 [facility] Comment on above: Performed By: #### B SECURITY PROGRAM MANAGER, CMP ####[facility] [address] [place], [place] [address]Dr. Kasia Nath PROF 14(COMP METB)on 023 Albumin [Mass/Vol] 3.4 g/dL Normal 3.4-5.0 [facility] Comment on above: Performed By: #### B SECURITY PROGRAM MANAGER, CMP ####[facility] [address] [place], [place] [address]Dr. Kasia Nath Albumin/Globulin [Mass ratio] 0.8 {ratio} Normal [facility] Comment on above: Performed By: #### B SECURITY PROGRAM MANAGER, CMP ####[facility] [address] [place], [place] [address]Dr. Kasia Nath ALP [Catalytic activity/Vol] 99 U/L Normal 46-116 [facility] Comment on above: Performed By: #### B SECURITY PROGRAM MANAGER, CMP ####[facility] [address] [place], [place] [address]Dr. Kasia Nath ALT [Catalytic activity/Vol] 18 U/L Normal 14-59 [facility] Comment on above: Performed By: #### B SECURITY PROGRAM MANAGER, CMP ####[facility] [address] [place], [place] [address]Dr. Kasia Nath Anion gap [Moles/Vol] 10.6 mmol/L Normal [facility] Comment on above: Performed By: #### B SECURITY PROGRAM MANAGER, CMP ####[facility] [address] [place], [place] [address]Dr. Kasia Nath AST [Catalytic activity/Vol] 15 U/L Normal 15-37 [facility] Comment on above: Performed By: #### B SECURITY PROGRAM MANAGER, CMP ####[facility] [address] [place], [place] [address]Dr. Fartuncristy Nath Bilirubin [Mass/Vol] 0.5 mg/dL Normal 0.2-1.0 [facility] Comment on above: Performed By: #### B SECURITY PROGRAM MANAGER, CMP ####[facility] [address] [place], [place] [address]Dr. Fartuncristy Portillo Calcium [Mass/Vol] 9.1 mg/dL Normal 8.5-10.1 [facility] Comment on above: Performed By: #### B SECURITY PROGRAM MANAGER, CMP ####[facility] [address] [place], [place] [address]Dr. Kasia Nath Chloride [Moles/Vol] 98 mmol/L Normal 98-107 [facility] Comment on above: Performed By: #### B SECURITY PROGRAM MANAGER, CMP ####[facility] [address] [place], [place] [address]Dr. Fartuncristy Nath CO2 [Moles/Vol] 30.4 mmol/L Normal 21.0-32.0 [facility] Comment on above: Performed By: #### B SECURITY PROGRAM MANAGER, CMP ####[facility] [address] [place], [place] [address]Dr. Kasia Nath Creatinine [Mass/Vol] 1.44 mg/dL Critically high 0.55-1.02 [facility] Comment on above: Performed By: #### B SECURITY PROGRAM MANAGER, CMP ####[facility] [address] [place], [place] [address]Dr. Kasia Nath EGFR-AF GREENLANDIC 43 mL/min/1.73m2 Critically low >=60 [facility] Comment on above: Performed By: #### B SECURITY PROGRAM MANAGER, CMP ####[facility] [address] [place], [place] [address]Dr. Kasia Nath EGFR-NON AF GREENLANDIC 35 mL/min/1.73m2 Critically low >=60 [facility] Comment on above: Performed By: #### B SECURITY PROGRAM MANAGER, CMP ####[facility] [address] [place], [place] [address]Dr. Kasia Nath Globulin (S) [Mass/Vol] 4.4 g/dL Normal [facility] Comment on above: Performed By: #### B SECURITY PROGRAM MANAGER, CMP ####[facility] [address] [place], [place] [address]Dr. Kasia Nath Glucose [Mass/Vol] 401 mg/dL Critically high 74-106 [facility] Comment on above: Performed By: #### B SECURITY PROGRAM MANAGER, CMP ####[facility] [address] [place], [place] [address]Dr. Kasia Nath Potassium [Moles/Vol] 5.0 mmol/L Normal 3.5-5.1 [facility] Comment on above: Performed By: #### B SECURITY PROGRAM MANAGER, CMP ####[facility] [address] [place], [place] [address]Dr. Kasia Nath Protein [Mass/Vol] 7.8 g/dL Normal 6.4-8.2 [facility] Comment on above: Performed By: #### B SECURITY PROGRAM MANAGER, CMP ####[facility] [address] [place], [place] [address]Dr. Kasia Nath Sodium [Moles/Vol] 134 mmol/L Critically low 136-145 [facility] Comment on above: Performed By: #### B SECURITY PROGRAM MANAGER, CMP ####[facility] [address] [place], [place] [address]Dr. Kasia Nath Urea nitrogen [Mass/Vol] 46.0 mg/dL Critically high 7.0-18.0 [facility] Comment on above: Performed By: #### B SECURITY PROGRAM MANAGER, CMP ####[facility] [address] [address]Dr. Kasia Nath Urea nitrogen/Creatinine [Mass ratio] 31.9 mg/mg Normal [facility] Comment on above: Performed By: #### B SECURITY PROGRAM MANAGER, CMP ####[facility] [address] [address]Dr. Kasia Nath BNPon 01-05-2023 Natriuretic peptide B (Bld) [Mass/Vol] 1389.0 pg/mL Normal <=1,800.0 [facility] Comment on above: Performed By: #### B SECURITY PROGRAM MANAGER, CMADM, CMP ####[facility] [address] [address]Dr. Kasia Nath CARDIAC EMERY ADMITon 023 CK [Catalytic activity/Vol] 138 U/L Normal 26-192 [facility] Comment on above: Performed By: #### B SECURITY PROGRAM MANAGER, CMADM, CMP ####[facility] [address] [address]Dr. Kasia Nath CK.MB [Mass/Vol] 2.22 ng/mL Normal <=3.60 [facility] Comment on above: Performed By: #### B SECURITY PROGRAM MANAGER, CMADM, CMP ####[facility] [address] [address]Dr. Kasia Nath HSTROP 15.9 pg/mL Normal 4.0-51.3 [facility] Comment on above: Result Comment: CUT- OFF POINTS HAVE BEEN ESTABLISHED BASED ON THE FOURTH UNIVERSAL DEFINITIONS OF MYOCARDIAL INFARCTION. THE UPPER REFERENCE LIMIT (URL) OF TROPONIN, DEFINED THE 99TH PERCENTILE OF cTnI DISTRIBUTION IN A REFERENCE POPULATION, HAS BEEN CONFIRMED THE DECISION THRESHOLD FOR NE DIAGNOSIS. Performed By: #### B SECURITY PROGRAM MANAGER, CMADM, CMP ####[facility] [address] [address]Dr. Kasia Nath GRETTA 178 ng/mL Critically high 9-[address] [facility] Comment on above: Performed By: #### B SECURITY PROGRAM MANAGER, CMADM, CMP ####[facility] [address] [address]Dr. Kasia Nath CBC AUTO DIFFon 01-05-2023 BASO # 0.1 103/ul Normal 0.0-0.1 [facility] Comment on above: Performed By: #### C BC #### [facility] [address] [place] [address] Dr. Kasia Nath Basophils/100 WBC (Bld) 0.7 % Normal 0.2-2.0 [facility] Comment on above: Performed By: #### C BC #### [facility] [address] [place] [address] Dr. Kasia Nath EO # 0.3 103/ul Normal 0.0-0.7 [facility] Comment on above: Performed By: #### C BC #### [facility] [address] [place] [address] Dr. Kasia Nath Eosinophils/100 WBC (Bld) 2.9 % Normal 0.9-7.0 [facility] Comment on above: Performed By: #### C BC #### [facility] [address] [place] [address] Dr. Kasia Nath Erythrocyte distribution width (RBC) [Ratio] 13.5 % Normal 11.0-15.0 [facility] Comment on above: Performed By: #### C BC #### [facility] [address] [place] [address] Dr. Kasia Nath Hematocrit (Bld) [Volume fraction] 39.8 % Normal 36.0-48.0 [facility] Comment on above: Performed By: #### C BC #### [facility] [address] [place] [address] Dr. Kasia Nath Hemoglobin (Bld) [Mass/Vol] 13.5 g/dL Normal 12.0-16.0 [facility] Comment on above: Performed By: #### C BC #### [facility] [address] [place] [address] Dr. Kasia Nath IG # 0.02 10e3/ul Normal 0.00-0.03 [facility] Comment on above: Performed By: #### C BC #### [facility] [address] [place] [address] Dr. Kasia Nath IG % 0.2 % Normal 0.0-0.5 [facility] Comment on above: Performed By: #### C BC #### [facility] [address] [place] [address] Dr. Kasia Nath LYMPH # 1.9 103/ul Normal 1.2-3.8 [facility] Comment on above: Performed By: #### C BC #### [facility] [address] [place] [address] Dr. Kasia Nath Lymphocytes/100 WBC (Bld) 22.0 % Normal 20.5-60.0 [facility] Comment on above: Performed By: #### C BC #### [facility] [address] [place] [address] Dr. Kasia Nath MANUAL DIFF REQ NO Normal [facility] Comment on above: Performed By: #### C BC #### [facility] [address] [place] [address] Dr. Kasia Nath MCH (RBC) [Entitic mass] 29.8 pg Normal 26.7-34.0 [facility] Comment on above: Performed By: #### C BC #### [facility] [address] [place] [address] Dr. Kasia Nath MCHC (RBC) [Mass/Vol] 33.9 g/dL Normal 29.9-35.2 [facility] Comment on above: Performed By: #### C BC #### [facility] [address] [place] [address] Dr. Kasia Nath MCV (RBC) [Entitic vol] 87.9 fL Normal 81.0-99.0 [facility] Comment on above: Performed By: #### C BC #### [facility] [address] [place] [address] Dr. Kasia Nath MONO # 0.8 103/ul Normal 0.3-0.8 [facility] Comment on above: Performed By: #### C BC #### [facility] [address] [place] [address] Dr. Kasia Nath Monocytes/100 WBC (Bld) 8.8 % Normal 1.7-12.0 [facility] Comment on above: Performed By: #### C BC #### [facility] [address] [place] [address] Dr. Kasia Nath NEUT # 5.6 103/ul Normal 1.4-6.5 [facility] Comment on above: Performed By: #### C BC #### [facility] [address] [place] [address] Dr. Kasia Nath Neutrophils/100 WBC (Bld) 65.4 % Normal 43.0-75.0 [facility] Comment on above: Performed By: #### C BC #### [facility] [address] [place] [address] Dr. Kasia Nath Platelet mean volume (Bld) [Entitic vol] 10.6 fL Normal 9.5-13.5 [facility] Comment on above: Performed By: #### C BC #### [facility] [address] [place] [address] Dr. Kasia Nath PLT 222 103/ul Normal 150-450 [facility] Comment on above: Performed By: #### C BC #### [facility] [address] [place] [address] Dr. Kasia Nath RBC 4.53 106/ul Normal 4.20-5.40 [facility] Comment on above: Performed By: #### C BC #### [facility] [address] [place] [address] Dr. Kasia Nath WBC 8.6 103/ul Normal 4.0-11.0 [facility] Comment on above: Performed By: #### C BC #### [facility] [address] [place] [address] Dr. Kasia Nath PROF 14(COMP METB)on 023 Albumin [Mass/Vol] 3.3 g/dL Critically low 3.4-5.0 [facility] Comment on above: Performed By: #### B SECURITY PROGRAM MANAGER, CMADM, CMP #### [facility] [address] [place] [address] Dr. Kasia Nath Albumin/Globulin [Mass ratio] 0.7 {ratio} Normal [facility] Comment on above: Performed By: #### B SECURITY PROGRAM MANAGER, CMADM, CMP #### [facility] [address] [address] [address] Kasia Nath ALP [Catalytic activity/Vol] 106 U/L Normal 46-116 [facility] Comment on above: Performed By: #### B SECURITY PROGRAM MANAGER, CMADM, CMP #### [facility] [address] [address] [address] Kasia Nath ALT [Catalytic activity/Vol] 22 U/L Normal 14-59 [facility] Comment on above: Performed By: #### B SECURITY PROGRAM MANAGER, CMADM, CMP #### [facility] [address] [place] [address] Dr. Kasia Nath Anion gap [Moles/Vol] 12.0 mmol/L Normal [facility] Comment on above: Performed By: #### B SECURITY PROGRAM MANAGER, CMADM, CMP #### [facility] [address] [place] [address] Dr. Kasia Nath AST [Catalytic activity/Vol] 23 U/L Normal 15-37 [facility] Comment on above: Performed By: #### B SECURITY PROGRAM MANAGER, CMADM, CMP #### [facility] [address] [place] [address] Dr. Kasia Nath Bilirubin [Mass/Vol] 0.7 mg/dL Normal 0.2-1.0 [facility] Comment on above: Performed By: #### B SECURITY PROGRAM MANAGER, CMADM, CMP #### [facility] [address] [place] [address] Dr. Kasia Nath Calcium [Mass/Vol] 8.8 mg/dL Normal 8.5-10.1 [facility] Comment on above: Performed By: #### B SECURITY PROGRAM MANAGER, CMADM, CMP #### [facility] [address] [place] [address] Dr. Kasia Nath Chloride [Moles/Vol] 98 mmol/L Normal 98-107 [facility] Comment on above: Performed By: #### B SECURITY PROGRAM MANAGER, CMADM, CMP #### [facility] [address] [address] [address] Kaisa Nath CO2 [Moles/Vol] 30.2 mmol/L Normal 21.0-32.0 [facility] Comment on above: Performed By: #### B SECURITY PROGRAM MANAGER, CMADM, CMP #### [facility] [address] [address] [address] Kasia Nath Creatinine [Mass/Vol] 1.19 mg/dL Critically high 0.55-1.02 [facility] Comment on above: Performed By: #### B SECURITY PROGRAM MANAGER, CMADM, CMP #### [facility] [address] [address] [address] Kasia Nath EGFR-AF GREENLANDIC 53 mL/min/1.73m2 Critically low >=60 [facility] Comment on above: Performed By: #### B SECURITY PROGRAM MANAGER, CMADM, CMP #### [facility] [address] [place] [address] Dr. Kasia Nath EGFR-NON AF GREENLANDIC 44 mL/min/1.73m2 Critically low >=60 [facility] Comment on above: Performed By: #### B SECURITY PROGRAM MANAGER, CMADM, CMP #### [facility] [address] [address] [address] Kasia Nath Globulin (S) [Mass/Vol] 4.7 g/dL Normal [facility] Comment on above: Performed By: #### B SECURITY PROGRAM MANAGER, CMADM, CMP #### [facility] [address] [place] [address] Dr. Kasia Nath Glucose [Mass/Vol] 124 mg/dL Critically high 74-106 [facility] Comment on above: Performed By: #### B SECURITY PROGRAM MANAGER, CMADM, CMP #### [facility] [address] [place] [address] Dr. Kasia Nath Potassium [Moles/Vol] 3.2 mmol/L Critically low 3.5-5.1 [facility] Comment on above: Performed By: #### B SECURITY PROGRAM MANAGER, CMADM, CMP #### [facility] [address] [address] [address] Kasia Nath Protein [Mass/Vol] 8.0 g/dL Normal 6.4-8.2 [facility] Comment on above: Performed By: #### B SECURITY PROGRAM MANAGER, CMADM, CMP #### [facility] [address] [address] [address] Kasia Nath Sodium [Moles/Vol] 137 mmol/L Normal 136-145 [facility] Comment on above: Performed By: #### B SECURITY PROGRAM MANAGER, CMADM, CMP #### [facility] [address] [address] [address] Kasia Nath Urea nitrogen [Mass/Vol] 29.0 mg/dL Critically high 7.0-18.0 [facility] Comment on above: Performed By: #### B SECURITY PROGRAM MANAGER, CMADM, CMP #### [facility] [address] [address] [address] Kasia Nath Urea nitrogen/Creatinine [Mass ratio] 24.4 mg/mg Normal [facility] Comment on above: Performed By: #### B SECURITY PROGRAM MANAGER, CMADM, CMP #### [facility] [address] [address] [address] Kasia Nath TROPONIN, HIGH SENSITIVITYon 01-05-2023 HSTROP 18.4 pg/mL Normal 4.0-51.3 [facility] Comment on above: Result Comment: CUT- OFF POINTS HAVE BEEN ESTABLISHED BASED ON THE FOURTH UNIVERSAL DEFINITIONS OF MYOCARDIAL INFARCTION. THE UPPER REFERENCE LIMIT (URL) OF TROPONIN, DEFINED THE 99TH PERCENTILE OF cTnI DISTRIBUTION IN A REFERENCE POPULATION, HAS BEEN CONFIRMED THE DECISION THRESHOLD FOR NE DIAGNOSIS. Performed By: #### H STROPN ####[facility] [address] [address]Dr. Kasia Nath XR CHEST 1 Von 01-05-2023 [...] BIN ROJAS Date: 2023-01-05 04:39 Normal [facility] BNPon 01-02-2023 Natriuretic peptide B (Bld) [Mass/Vol] 2583.0 pg/mL Critically high <=1,800.0 [facility] Comment on above: Performed By: #### B SECURITY PROGRAM MANAGER, CMP ####[facility] [address] [address]Dr. Kasia Nath CBC AUTO DIFFon 01-02-2023 BASO # 0.1 103/ul Normal 0.0-0.1 [facility] Comment on above: Performed By: #### P OCGLUC #### [facility] [address] [address] [address] Kasia Nath Basophils/100 WBC (Bld) 0.9 % Normal 0.2-2.0 [facility] Comment on above: Performed By: #### P OCGLUC #### [facility] [address] [address] [address] Kasia Nath EO # 0.2 103/ul Normal 0.0-0.7 [facility] Comment on above: Performed By: #### P OCGLUC #### [facility] [address] [address] [address] Kasia Nath Eosinophils/100 WBC (Bld) 2.3 % Normal 0.9-7.0 [facility] Comment on above: Performed By: #### P OCGLUC #### [facility] [address] [address] [address] Kasia Nath Erythrocyte distribution width (RBC) [Ratio] 13.8 % Normal 11.0-15.0 [facility] Comment on above: Performed By: #### P OCGLUC #### [facility] [address] [address] [address] Kasia Nath Hematocrit (Bld) [Volume fraction] 35.5 % Critically low 36.0-48.0 [facility] Comment on above: Performed By: #### P OCGLUC #### [facility] [address] [place] [address] Dr. Kasia Nath Hemoglobin (Bld) [Mass/Vol] 11.6 g/dL Critically low 12.0-16.0 [facility] Comment on above: Performed By: #### P OCGLUC #### [facility] [address] [address] [address] Kasia Nath IG # 0.02 10e3/ul Normal 0.00-0.03 [facility] Comment on above: Performed By: #### P OCGLUC #### [facility] [address] [place] [address] Dr. Kasia Nath IG % 0.3 % Normal 0.0-0.5 [facility] Comment on above: Performed By: #### P OCGLUC #### [facility] [address] [place] [address] Dr. Kasia Nath LYMPH # 2.0 103/ul Normal 1.2-3.8 [facility] Comment on above: Performed By: #### P OCGLUC #### [facility] [address] [place] [address] Dr. Kasia Nath Lymphocytes/100 WBC (Bld) 24.8 % Normal 20.5-60.0 [facility] Comment on above: Performed By: #### P OCGLUC #### [facility] [address] [place] [address] Dr. Kasia Nath MANUAL DIFF REQ NO Normal [facility] Comment on above: Performed By: #### P OCGLUC #### [facility] [address] [address] [address] Kasia Nath MCH (RBC) [Entitic mass] 28.7 pg Normal 26.7-34.0 [facility] Comment on above: Performed By: #### P OCGLUC #### [facility] [address] [place] [address] Dr. Kasia Nath MCHC (RBC) [Mass/Vol] 32.7 g/dL Normal 29.9-35.2 [facility] Comment on above: Performed By: #### P OCGLUC #### [facility] [address] [place] [address] Dr. Kasia Nath MCV (RBC) [Entitic vol] 87.9 fL Normal 81.0-99.0 [facility] Comment on above: Performed By: #### P OCGLUC #### [facility] [address] [place] [address] Dr. Kasia Nath MONO # 0.8 103/ul Normal 0.3-0.8 [facility] Comment on above: Performed By: #### P OCGLUC #### [facility] [address] [place] [address] Dr. Kasia Nath Monocytes/100 WBC (Bld) 9.6 % Normal 1.7-12.0 [facility] Comment on above: Performed By: #### P OCGLUC #### [facility] [address] [place] [address] Dr. Kasia Nath NEUT # 5.0 103/ul Normal 1.4-6.5 [facility] Comment on above: Performed By: #### P OCGLUC #### [facility] [address] [place] [address] Dr. Kasia Nath Neutrophils/100 WBC (Bld) 62.1 % Normal 43.0-75.0 [facility] Comment on above: Performed By: #### P OCGLUC #### [facility] [address] [place] [address] Dr. Kasia Nath Platelet mean volume (Bld) [Entitic vol] 10.7 fL Normal 9.5-13.5 [facility] Comment on above: Performed By: #### P OCGLUC #### [facility] [address] [place] [address] Dr. Kasia Nath PLT 204 103/ul Normal 150-450 [facility] Comment on above: Performed By: #### P OCGLUC #### [facility] [address] [place] [address] Dr. Kasia Nath RBC 4.04 106/ul Critically low 4.20-5.[address] [facility] Comment on above: Performed By: #### P OCGLUC #### [facility] [address] [address] [address] Kasia Nath WBC 8.0 103/ul Normal 4.0-11.0 [facility] Comment on above: Performed By: #### P OCGLUC #### [facility] [address] [address] [address] Kasia Nath GLYCOHEMOGLOBIN A1Con 2022 ADA RECOMMENDATION SEE BELOW Normal [facility] Comment on above: Result Comment: ADA RECOMMENDED LIMIT 4.0 - 6.0 ADA THERAPEUTIC TARGET < 7.0 ACTION SUGGESTED > 7.0 Performed By: #### A 1C ####[facility] [address] [address]Dr. Kasia Nath Glucose [Mass/Vol] 298 mg/dL Normal [facility] Comment on above: Performed By: #### A 1C ####[facility] [address] [address]Dr. Kasia Nath HbA1c (Bld) [Mass fraction] 12.0 % Critically high 4.5-6.2 [facility] Comment on above: Performed By: #### A 1C ####[facility] [address] [id number] Kasia Nath POINT OF CARE GLUCOSEon 12-14 Glucose [Mass/Vol] 227 mg/dL Critically high 74-106 [facility] Comment on above: Performed By: #### C BC #### [facility] [address] [address] [address] Kasia Nath Glucose [Mass/Vol] 214 mg/dL Critically high 74-106 [facility] Comment on above: Performed By: #### C BC #### [facility] [address] [address] [address] Kasia Nath PROF 14(COMP METB)on 023 Albumin [Mass/Vol] 2.6 g/dL Critically low 3.4-5.0 [facility] Comment on above: Performed By: #### B SECURITY PROGRAM MANAGER, CMP ####[facility] [address] [id number]. Fartuncristy Portillo Albumin/Globulin [Mass ratio] 0.6 {ratio} Normal [facility] Comment on above: Performed By: #### B SECURITY PROGRAM MANAGER, CMP ####[facility] [address] [id number] Kasia Nath ALP [Catalytic activity/Vol] 94 U/L Normal 46-116 [facility] Comment on above: Performed By: #### B SECURITY PROGRAM MANAGER, CMP ####[facility] [address] [id number]. Kasia Nath ALT [Catalytic activity/Vol] 16 U/L Normal 14-59 [facility] Comment on above: Performed By: #### B SECURITY PROGRAM MANAGER, CMP ####[facility] [address] [address]Dr. Kasia Nath Anion gap [Moles/Vol] 10.6 mmol/L Normal [facility] Comment on above: Performed By: #### B SECURITY PROGRAM MANAGER, CMP ####[facility] [address] [address]Dr. Kasia Nath AST [Catalytic activity/Vol] 15 U/L Normal 15-37 [facility] Comment on above: Performed By: #### B SECURITY PROGRAM MANAGER, CMP ####[facility] [address] [id number]. Kasia Nath Bilirubin [Mass/Vol] 0.8 mg/dL Normal 0.2-1.0 [facility] Comment on above: Performed By: #### B SECURITY PROGRAM MANAGER, CMP ####[facility] [address] [id number]. Kasia Nath Calcium [Mass/Vol] 8.5 mg/dL Normal 8.5-10.1 [facility] Comment on above: Performed By: #### B SECURITY PROGRAM MANAGER, CMP ####[facility] [address] [address]Dr. Kasia Nath Chloride [Moles/Vol] 102 mmol/L Normal 98-107 [facility] Comment on above: Performed By: #### B SECURITY PROGRAM MANAGER, CMP ####[facility] [address] [address]Dr. Kasia Nath CO2 [Moles/Vol] 30.2 mmol/L Normal 21.0-32.0 [facility] Comment on above: Performed By: #### B SECURITY PROGRAM MANAGER, CMP ####[facility] [address] [address]Dr. Kasia Nath Creatinine [Mass/Vol] 0.94 mg/dL Normal 0.55-1.02 [facility] Comment on above: Performed By: #### B SECURITY PROGRAM MANAGER, CMP ####[facility] [address] [place], [place] [address]Dr. Kasia Portillo EGFR-AF GREENLANDIC >60 Normal >=60 [facility] Comment on above: Performed By: #### B SECURITY PROGRAM MANAGER, CMP ####[facility] [address] [place], [place] [address]Dr. Kasia Nath EGFR-NON AF GREENLANDIC 58 mL/min/1.73m2 Critically low >=60 [facility] Comment on above: Performed By: #### B SECURITY PROGRAM MANAGER, CMP ####[facility] [address] [place], [place] [address]Dr. Kasia Nath Globulin (S) [Mass/Vol] 4.0 g/dL Normal [facility] Comment on above: Performed By: #### B SECURITY PROGRAM MANAGER, CMP ####[facility] [address] [place], [place] [address]Dr. Kasia Nath Glucose [Mass/Vol] 150 mg/dL Critically high 74-106 [facility] Comment on above: Performed By: #### B SECURITY PROGRAM MANAGER, CMP ####[facility] [address] [place], [place] [address]Dr. Fartuncristy Portillo Potassium [Moles/Vol] 3.8 mmol/L Normal 3.5-5.1 [facility] Comment on above: Performed By: #### B SECURITY PROGRAM MANAGER, CMP ####[facility] [address] [place], [place] [address]Dr. Kasia Nath Protein [Mass/Vol] 6.6 g/dL Normal 6.4-8.2 [facility] Comment on above: Performed By: #### B SECURITY PROGRAM MANAGER, CMP ####[facility] [address] [address]DrDoreen Nath Sodium [Moles/Vol] 139 mmol/L Normal 136-145 [facility] Comment on above: Performed By: #### B SECURITY PROGRAM MANAGER, CMP ####[facility] [address] [address]Dr. Kasia Nath Urea nitrogen [Mass/Vol] 24.0 mg/dL Critically high 7.0-18.0 [facility] Comment on above: Performed By: #### B SECURITY PROGRAM MANAGER, CMP ####[facility] [address] [address]Dr. Kasia Nath Urea nitrogen/Creatinine [Mass ratio] 25.5 mg/mg Normal [facility] Comment on above: Performed By: #### B SECURITY PROGRAM MANAGER, CMP ####[facility] [address] [address]Dr. Kasia Nath BNPon 01-01-2023 Natriuretic peptide B (Bld) [Mass/Vol] 1419.0 pg/mL Normal <=1,800.0 [facility] Comment on above: Performed By: #### B SECURITY PROGRAM MANAGER #### [facility] [address] [place] [address] Dr. Kasia Nath CARDIAC EMERY 3-6on 3 CK [Catalytic activity/Vol] 80 U/L Normal 26-192 [facility] Comment on above: Performed By: #### P OCGLUC #### [facility] [address] [place] [address] Dr. Kasia Nath CK.MB [Mass/Vol] 1.85 ng/mL Normal <=3.60 [facility] Comment on above: Performed By: #### P OCGLUC #### [facility] [address] [place] [address] Dr. Kasia Nath HSTROP 13.2 pg/mL Normal 4.0-51.3 [facility] Comment on above: Result Comment: CUT- OFF POINTS HAVE BEEN ESTABLISHED BASED ON THE FOURTH UNIVERSAL DEFINITIONS OF MYOCARDIAL INFARCTION. THE UPPER REFERENCE LIMIT (URL) OF TROPONIN, DEFINED THE 99TH PERCENTILE OF cTnI DISTRIBUTION IN A REFERENCE POPULATION, HAS BEEN CONFIRMED THE DECISION THRESHOLD FOR NE DIAGNOSIS. Performed By: #### P OCGLUC #### [facility] [address] [place] [address] Dr. Kasia Nath CK [Catalytic activity/Vol] 73 U/L Normal 26-192 [facility] Comment on above: Performed By: #### P OCGLUC #### [facility] [address] [place] [address] Dr. Kasia Nath CK.MB [Mass/Vol] 1.71 ng/mL Normal <=3.60 [facility] Comment on above: Performed By: #### P OCGLUC #### [facility] [address] [place] [address] Dr. Kasia Nath HSTROP 13.6 pg/mL Normal 4.0-51.3 [facility] Comment on above: Result Comment: CUT- OFF POINTS HAVE BEEN ESTABLISHED BASED ON THE FOURTH UNIVERSAL DEFINITIONS OF MYOCARDIAL INFARCTION. THE UPPER REFERENCE LIMIT (URL) OF TROPONIN, DEFINED THE 99TH PERCENTILE OF cTnI DISTRIBUTION IN A REFERENCE POPULATION, HAS BEEN CONFIRMED THE DECISION THRESHOLD FOR NE DIAGNOSIS. Performed By: #### P OCGLUC #### [facility] [address] [place] [address] Dr. Kasia Nath CARDIAC EMERY ADMITon 023 CK [Catalytic activity/Vol] 71 U/L Normal 26-192 [facility] Comment on above: Performed By: #### C BC #### [facility] [address] [place] [address] Dr. Kasia Nath CK.MB [Mass/Vol] 1.69 ng/mL Normal <=3.60 [facility] Comment on above: Performed By: #### C BC #### [facility] [address] [place] [address] Dr. Kasia Nath HSTROP 13.0 pg/mL Normal 4.0-51.3 [facility] Comment on above: Result Comment: CUT- OFF POINTS HAVE BEEN ESTABLISHED BASED ON THE FOURTH UNIVERSAL DEFINITIONS OF MYOCARDIAL INFARCTION. THE UPPER REFERENCE LIMIT (URL) OF TROPONIN, DEFINED THE 99TH PERCENTILE OF cTnI DISTRIBUTION IN A REFERENCE POPULATION, HAS BEEN CONFIRMED THE DECISION THRESHOLD FOR NE DIAGNOSIS. Performed By: #### C BC #### [facility] [address] [place] [address] Dr. Kasia Nath GRETTA 75 ng/mL Normal 9-82 [facility] Comment on above: Performed By: #### C BC #### [facility] [address] [place] [address] Dr. Kasia Nath CBC AUTO DIFFon 01-01-2023 BASO # 0.1 103/ul Normal 0.0-0.1 [facility] Comment on above: Performed By: #### C BC #### [facility] [address] [place] [address] Dr. Kasia Nath Basophils/100 WBC (Bld) 1.1 % Normal 0.2-2.0 [facility] Comment on above: Performed By: #### C BC #### [facility] [address] [place] [address] Dr. Kasia Nath EO # 0.2 103/ul Normal 0.0-0.7 [facility] Comment on above: Performed By: #### C BC #### [facility] [address] [place] [address] Dr. Kasia Nath Eosinophils/100 WBC (Bld) 2.9 % Normal 0.9-7.0 [facility] Comment on above: Performed By: #### C BC #### [facility] [address] [place] [address] Dr. Kasia Nath Erythrocyte distribution width (RBC) [Ratio] 13.8 % Normal 11.0-15.0 [facility] Comment on above: Performed By: #### C BC #### [facility] [address] [place] [address] Dr. Kasia Nath Hematocrit (Bld) [Volume fraction] 36.2 % Normal 36.0-48.0 [facility] Comment on above: Performed By: #### C BC #### [facility] [address] [place] [address] Dr. Kasia Nath Hemoglobin (Bld) [Mass/Vol] 12.1 g/dL Normal 12.0-16.0 [facility] Comment on above: Performed By: #### C BC #### [facility] [address] [place] [address] Dr. Kasia Nath IG # 0.02 10e3/ul Normal 0.00-0.03 [facility] Comment on above: Performed By: #### C BC #### [facility] [address] [place] [address] Dr. Kasia Nath IG % 0.3 % Normal 0.0-0.5 [facility] Comment on above: Performed By: #### C BC #### [facility] [address] [place] [address] Dr. Kasia Nath LYMPH # 1.5 103/ul Normal 1.2-3.8 [facility] Comment on above: Performed By: #### C BC #### [facility] [address] [place] [address] Dr. Kasia Nath Lymphocytes/100 WBC (Bld) 19.9 % Critically low 20.5-60.0 [facility] Comment on above: Performed By: #### C BC #### [facility] [address] [place] [address] Dr. Kasia Nath MANUAL DIFF REQ NO Normal [facility] Comment on above: Performed By: #### C BC #### [facility] [address] [place] [address] Dr. Kasia Nath MCH (RBC) [Entitic mass] 29.7 pg Normal 26.7-34.0 [facility] Comment on above: Performed By: #### C BC #### [facility] [address] [place] [address] Dr. Kasia Nath MCHC (RBC) [Mass/Vol] 33.4 g/dL Normal 29.9-35.2 [facility] Comment on above: Performed By: #### C BC #### [facility] [address] [place] [address] Dr. Kasia Nath MCV (RBC) [Entitic vol] 88.9 fL Normal 81.0-99.0 [facility] Comment on above: Performed By: #### C BC #### [facility] [address] [address] [address] Kasia Nath MONO # 0.6 103/ul Normal 0.3-0.8 [facility] Comment on above: Performed By: #### C BC #### [facility] [address] [address] [address] Kasia Nath Monocytes/100 WBC (Bld) 8.0 % Normal 1.7-12.0 [facility] Comment on above: Performed By: #### C BC #### [facility] [address] [address] [address] Kasia Nath NEUT # 5.1 103/ul Normal 1.4-6.5 [facility] Comment on above: Performed By: #### C BC #### [facility] [address] [address] [address] Kasia Nath Neutrophils/100 WBC (Bld) 67.8 % Normal 43.0-75.0 [facility] Comment on above: Performed By: #### C BC #### [facility] [address] [address] [address] Kasia Nath Platelet mean volume (Bld) [Entitic vol] 10.4 fL Normal 9.5-13.5 [facility] Comment on above: Performed By: #### C BC #### [facility] [address] [address] [address] Kasia Nath PLT 200 103/ul Normal 150-450 [facility] Comment on above: Performed By: #### C BC #### [facility] [address] [address] [address] Kasia Nath RBC 4.07 106/ul Critically low 4.20-5.40 [facility] Comment on above: Performed By: #### C BC #### [facility] [address] [address] [address] Kasia Nath WBC 7.5 103/ul Normal 4.0-11.0 [facility] Comment on above: Performed By: #### C BC #### [facility] [address] [address] CHEST WO CONon [...] two extremes (Agatston score 101-1000). https://pubs.rsna.org /doi/abs/10.1148/radi ol.[email or web address] Electronically authenticated by: RENETTA MICHAELS Date: 2023-01-01 14:55 Normal [facility] Covid-19 PCR (CVDTBH)on 12-14 SARS-CoV-2 (COVID-19) RNA FERN+probe Ql (Unsp spec) Not detected Normal NOT DETECTED [facility] Comment on above: Result Comment: [...] for this test is supported by the [place] of Health and Human Service's declaration that [...] longer be used). Performed By: #### C [facility] #### [facility] [address] [place] [address] Dr. Kasia Nath ECHO LIMITED STUDYon 023 ECHO LIMITED STUDY Patient: SAIMA CALL Exam Date: 01/01/2023 : 1945 Gender:F Ordering : LD GUERRERO . Admission #: [id number] Family : Order #: [id number] CLICK HERE TO VIEW EXAM ECHOCARDIOGRAM REPORT [...] Kaplan M.D. on 01/01/2023 at 13:19 Normal [facility] GLYCOHEMOGLOBIN A1Con 2022 ADA RECOMMENDATION SEE BELOW Normal [facility] Comment on above: Result Comment: ADA RECOMMENDED LIMIT 4.0 - 6.0 ADA THERAPEUTIC TARGET < 7.0 ACTION SUGGESTED > 7.0 Performed By: #### P OCGLUC #### [facility] [address] [address] [address] Kasia Nath Glucose [Mass/Vol] 318 mg/dL Normal [facility] Comment on above: Performed By: #### P OCGLUC #### [facility] [address] [address] [address] Kasia Nath HbA1c (Bld) [Mass fraction] 12.7 % Critically high 4.5-6.2 [facility] Comment on above: Performed By: #### P OCGLUC #### [facility] [address] [address] [address] Kasia Nath POINT OF CARE GLUCOSEon 12-14 Glucose [Mass/Vol] 162 mg/dL Critically high 74-106 [facility] Comment on above: Performed By: #### P OCGLUC ####[facility] [id number] [place] [address]Dr. Kasia Nath Glucose [Mass/Vol] 213 mg/dL Critically high 74-106 [facility] Comment on above: Performed By: #### P OCGLUC ####[facility] [id number] [place] [address]Dr. Kasia Nath Glucose [Mass/Vol] 248 mg/dL Critically high 74-106 [facility] Comment on above: Performed By: #### P OCGLUC #### [facility] [address] [address] [address] Kasia Nath PROF CHEM 8 (BAS METB)on Anion gap [Moles/Vol] 11.8 mmol/L Normal [facility] Comment on above: Performed By: #### C BC #### [facility] [address] [address] [address] Kasia Nath Calcium [Mass/Vol] 8.4 mg/dL Critically low 8.5-10.1 [facility] Comment on above: Performed By: #### C BC #### [facility] [address] [address] [address] Kasia Nath Chloride [Moles/Vol] 102 mmol/L Normal 98-107 [facility] Comment on above: Performed By: #### C BC #### [facility] [address] [address] [address] Kasia Nath CO2 [Moles/Vol] 28.4 mmol/L Normal 21.0-32.0 [facility] Comment on above: Performed By: #### C BC #### [facility] [address] [address] [address] Kasia Nath Creatinine [Mass/Vol] 1.09 mg/dL Critically high 0.55-1.02 [facility] Comment on above: Performed By: #### C BC #### [facility] [address] [address] [address] Kasia Nath EGFR-AF GREENLANDIC 59 mL/min/1.73m2 Critically low >=60 [facility] Comment on above: Performed By: #### C BC #### [facility] [address] [address] [address] Kasia Nath EGFR-NON AF GREENLANDIC 49 mL/min/1.73m2 Critically low >=60 [facility] Comment on above: Performed By: #### C BC #### [facility] [address] [address] [address] Kasia Nath Glucose [Mass/Vol] 247 mg/dL Critically high 74-106 [facility] Comment on above: Performed By: #### C BC #### [facility] [address] [address] [address] Kasia Nath Potassium [Moles/Vol] 4.2 mmol/L Normal 3.5-5.1 [facility] Comment on above: Performed By: #### C BC #### [facility] [address] [address] [address] Kasia Nath Sodium [Moles/Vol] 138 mmol/L Normal 136-145 [facility] Comment on above: Performed By: #### C BC #### [facility] [address] [address] [address] Kasia Nath Urea nitrogen [Mass/Vol] 28.0 mg/dL Critically high 7.0-18.0 [facility] Comment on above: Performed By: #### C BC #### [facility] [address] [address] [address] Kasia Nath Urea nitrogen/Creatinine [Mass ratio] 25.7 mg/mg Normal [facility] Comment on above: Performed By: #### C BC #### [facility] [address] [address] [address] Kasia Nath XR CHEST 1 Von [...] by: Miranda ALVAREZ Date: 2023-01-01 05:38 Normal [facility] ECHOCARDIO M/2D COMPLETEon 1 11-15-2021 ECHOCARDIO M/2D COMPLETE Patient: JOE CALL Exam Date: 09/15/2022 : 1945 Gender:F Ordering : [facility] Admission #: [id number] Family : DR SHANTEL STEVEN M.D. Order #: [id number] CLICK HERE TO VIEW EXAM ECHOCARDIOGRAM REPORT [...] M.D. on 09/15/2022 at 18:17 Normal [facility] GI PANEL (PCR)on 05-02-2022 Adenovirus F 40/41 Not detected Normal NOT DETECTED [facility] Comment on above: Performed By: #### P OCGLUC #### [facility] [address] [place] [address] Dr. Kasia Nath Astrovirus Not detected Normal NOT DETECTED [facility] Comment on above: Performed By: #### P OCGLUC #### [facility] [address] [place] [address] Dr. Kasia Nath C. Diff toxin A/B Not detected Normal NOT DETECTED [facility] Comment on above: Performed By: #### P OCGLUC #### [facility] [address] [place] [address] Dr. Kasia Nath Campylobacter Not detected Normal NOT DETECTED [facility] Comment on above: Performed By: #### P OCGLUC #### [facility] [address] [place] [address] Dr. Kasia Nath Cryptosporidium Not detected Normal NOT DETECTED [facility] Comment on above: Performed By: #### P OCGLUC #### [facility] [address] [address] [address] Kasia Nath Cyclos. Cayetanensis Not detected Normal NOT DETECTED [facility] Comment on above: Performed By: #### P OCGLUC #### [facility] [address] [place] [address] Dr. Kasia Nath E. Coli O157 Not Applicable Normal Not Applicable [facility] Comment on above: Performed By: #### P OCGLUC #### [facility] [address] [place] [address] Dr. Kasia Nath E. histolytica Not detected Normal NOT DETECTED [facility] Comment on above: Performed By: #### P OCGLUC #### [facility] [address] [place] [address] Dr. Kasia Nath EAEC Not detected Normal NOT DETECTED [facility] Comment on above: Performed By: #### P OCGLUC #### [facility] [address] [place] [address] Dr. Kasia Nath EIEC Not detected Normal NOT DETECTED [facility] Comment on above: Performed By: #### P OCGLUC #### [facility] [address] [address] [address] Kasia Nath EPEC Detected Abnormal NOT DETECTED [facility] Comment on above: Performed By: #### P OCGLUC #### [facility] [address] [place] [address] Dr. Kasia Nath ETEC Not detected Normal NOT DETECTED [facility] Comment on above: Performed By: #### P OCGLUC #### [facility] [address] [address] [address] Kasia Terrazas Lamblia Not detected Normal NOT DETECTED [facility] Comment on above: Performed By: #### P OCGLUC #### [facility] [address] [address] [address] Kasia KHAN CONTROLS PASSED Normal [facility] Comment on above: Performed By: #### P OCGLUC #### [facility] [address] [address] [address] Kasia THOMPSON BANNER HEADER GI PANEL BACTERIA Normal [facility] Comment on above: Performed By: #### P OCGLUC #### [facility] [address] [address] [address] Kasia GE ECOLI GI PANEL DIARRHEAGENIC E.COLI / SHIGELLA Normal [facility] Comment on above: Performed By: #### P OCGLUC #### [facility] [address] [address] [address] Kasia GE INFO SEE BELOW Normal [facility] Comment on above: Result Comment: EAEC - Enteroaggregative E. Coli EPEC- Enteropathogenic E. Coli ETEC- Enterotoxigenic E. Coli lt/st STEC- Shigella-like toxin-producing E. Coli stx1/stx2 EIEC- Shigella/Enteroinvasive E. Coli Performed By: #### P OCGLUC #### [facility] [address] [address] [address] Kasia GE PARASITES GI PANEL PARASITES Normal [facility] Comment on above: Performed By: #### P OCGLUC #### [facility] [address] [address] [address] Kasia GE VIRUS GI PANEL VIRUSES Normal [facility] Comment on above: Performed By: #### P OCGLUC #### [facility] [address] [address] [address] Kasia Nath Norovirus GI/GII Not detected Normal NOT DETECTED [facility] Comment on above: Performed By: #### P OCGLUC #### [facility] [address] [place] [address] Dr. Kasia Garland. Shigelloides Not detected Normal NOT DETECTED [facility] Comment on above: Performed By: #### P OCGLUC #### [facility] [address] [place] [address] Dr. Kasia Nath Rotavirus A Not detected Normal NOT DETECTED [facility] Comment on above: Performed By: #### P OCGLUC #### [facility] [address] [place] [address] Dr. Kasia Nath Salmonella Not detected Normal NOT DETECTED [facility] Comment on above: Performed By: #### P OCGLUC #### [facility] [address] [place] [address] Dr. Kasia Nath Sapovirus Not detected Normal NOT DETECTED [facility] Comment on above: Performed By: #### P OCGLUC #### [facility] [address] [place] [address] Dr. Kasia Nath STEC Not detected Normal NOT DETECTED [facility] Comment on above: Performed By: #### P OCGLUC #### [facility] [address] [place] [address] Dr. Kasia Nath Vibrio Not detected Normal NOT DETECTED [facility] Comment on above: Performed By: #### P OCGLUC #### [facility] [address] [place] [address] Dr. Kasia Nath Vibrio Cholera Not detected Normal NOT DETECTED [facility] Comment on above: Performed By: #### P OCGLUC #### [facility] [address] [place] [address] Dr. Kasia Nath Y. Enterocolitica Not detected Normal NOT DETECTED [facility] Comment on above: Performed By: #### P OCGLUC #### [facility] [address] [place] [address] Dr. Kasia Nath OCC BLD IMMUNO SCREENon 04-13 OCCULT BLOOD Negative Normal NEGATIVE [facility] Comment on above: Performed By: #### C BC #### [facility] [address] [place] [address] Dr. Kasia Nath XR knee BI 4Von 08-25-2021 XR knee BI 4V [facility] [employer] Other XR knee BI 4V [facility] [employer] Other XR knee BI 4V [address] [facility] [employer] Other XR [place] [address] [address] [facility] [employer] Other XR knee BI 4V XRay Report [facility] [employer] Other XR knee BI 4V Signed [employer] Other XR knee BI 4V Patient: Joe Call MR#: [id number] [place] [employer] Other XR knee BI 4V 0 [employer] Other XR knee BI 4V : 1945 Acct:[id number] [place] [employer] Other XR knee BI 4V Age/Sex: 76 / F ADM Date: 08/25/21 [employer] Other XR knee BI 4V Loc: SOXD Room: Type : [facility] [employer] Other XR knee BI 4V Attending Dr: Akbar Cui II, MD [employer] Other XR knee BI 4V Ordering Provider: Akbar Cui MD [employer] Other XR knee BI 4V Date of Service: 08/25/21 [employer] Other XR knee BI 4V XR/XR knee BI 4V: Pain in right knee;Pain in left knee [employer] Other XR knee BI 4V Copies to: Akbar Cui MD [employer] Other XR knee BI 4V XR knee BI 4V 08/25/2021 1:32 PM [employer] Other XR knee BI 4V SIGNS AND SYMPTOMS: Bilateral knee pain with decreased range of motion, weakness [employer] Other XR knee BI 4V PROTOCOL: Frontal, lateral, and sunrise views of the bilateral knees [employer] Other XR knee BI 4V COMPARISON: None [employer] Other XR knee BI 4V FINDINGS: [employer] Other XR knee BI 4V There is mild narrowing of the medial weightbearing joint spaces. There is mild patellofemoral [employer] Other XR knee BI 4V joint space loss. There is spurring of the poles of the patella bilaterally. There is mild lateral [employer] Other XR knee BI 4V patellar subluxation bilaterally. There is no evidence of acute displaced fracture. Well-corticated [employer] Other XR knee BI 4V ossific structures o r separate from the right medial weightbearing joint space. This may represent a [employer] Other XR knee BI 4V calcified loose bodies. [employer] Other XR knee BI 4V XR/XR knee BI 4V [employer] Other XR knee BI 4V IMPRESSION: [employer] Other XR knee BI 4V Degenerative changes are noted are noted bilaterally, as above. [employer] Other XR knee BI 4V Well-corticated ossific structures or separate from the right medial weightbearing joint space. This [employer] Other XR knee BI 4V may represent a calcified loose bodies. [employer] Other XR knee BI 4V No acute displaced fracture. [employer] Other XR knee BI 4V There is mild latera l subluxation of the patella within the patellofemoral joint space bilaterally. [employer] Other XR knee BI 4V Impression dictated by: Emery Lobo M.D.08/25/2021 2:51 PM [employer] Other XR knee BI 4V Dictation Location: [place] [address] [employer] Other XR knee BI 4V Transcribed By: PWS 08/25/21 [facility] [employer] Other XR knee BI 4V Dictated By: Emery Lobo II, MD 08/25/21 [facility] [employer] Other XR knee BI 4V Signed By: [employer] Other XR knee BI 4V 08/25/21 [facility] [employer] Other XR pelvis 1-2Von 08-25-2021 XR pelvis 1-2V XR/XR pelvis 1-2V: Pain in right knee;Pain in left knee [employer] Other XR pelvis 1-2V XR pelvis 1-2V 08/25/2021 1:32 PM [employer] Other XR pelvis 1-2V SIGNS AND SYMPTOMS: Bilateral generalized knee pain, limited range of motion with weakness [employer] Other XR pelvis 1-2V PROTOCOL: Frontal radiograph of the pelvis [employer] Other XR pelvis 1-2V There is mild narrowing of the weightbearing joint spaces. Mild degenerative changes are noted in [employer] Other XR pelvis 1-2V the symphysis pubis. There is no evidence of fracture or dislocation. Vascular calcifications are [employer] Other XR pelvis 1-2V present in the pelvis. [employer] Other XR pelvis 1-2V XR/XR pelvis 1-2V [employer] Other XR pelvis 1-2V No fracture or dislocation. [employer] Other XR pelvis 1-2V Mild degenerative changes are noted in the joint space of the hips. [employer] Other XR pelvis 1-2V Impression dictated by: Emery Lobo M.D.08/25/2021 2:54 PM [employer] Other XR pelvis 1-2V Transcribed By: PWS 08/25/21 [facility] [employer] Other XR pelvis 1-2V Dictated By: Emery Lobo II, MD 08/25/21 [facility] [employer] Other XR pelvis 1-2V 08/25/21 [facility] [employer] Other Vital Signs Date Time Vital Sign Value Performing Clinician Facility 10-01-2024 09:51-0500 Body height 165.1 cm Christel Chacon MD Work Phone: [facility] 10-01-2024 09:51-0500 Body mass index (BMI) [Ratio] 42.27 kg/m2 Christel Chacon MD Work Phone: [facility] 10-01-2024 09:51-0500 Body weight 115.21 kg Christel Chacon MD Work Phone: [facility] 10-01-2024 09:51-0500 Diastolic blood pressure 110 mm[Hg] Christel Chacon MD Work Phone: [facility] 10-01-2024 09:51-0500 Systolic blood pressure 138 mm[Hg] Christel Chacon MD Work Phone: [facility] 08-07-2024 10:04-0400 Body height 165.1 cm MD Shantel Steven Work Phone: [facility] 08-07-2024 10:04-0400 Body mass index (BMI) [Ratio] 43.1 kg/m2 MD Shantel Steven Work Phone: [facility] 08-07-2024 10:04-0400 Body weight 117.48 kg MD Shantel Steven Work Phone: [facility] 08-07-2024 10:04-0400 Diastolic blood pressure 69 mm[Hg] MD Shantel Steven Work Phone: [facility] 08-07-2024 10:04-0400 Heart rate 52 /min MD Shantel Steven Work Phone: [facility] 08-07-2024 10:04-0400 SaO2% (BldA) [Mass fraction] 93 % MD Shantel Steven Work Phone: [facility] 08-07-2024 10:04-0400 Systolic blood pressure 117 mm[Hg] MD Shantel Steven Work Phone: [facility] 07-16-2024 10:20-0400 Body height 165.1 cm MD Shantel Steven Work Phone: [facility] 07-16-2024 10:20-0400 Body mass index (BMI) [Ratio] 43.1 kg/m2 MD Shantel Steven Work Phone: [facility] 07-16-2024 10:20-0400 Body weight 117.48 kg MD Shantel Steven Work Phone: [facility] 07-16-2024 10:20-0400 Diastolic blood pressure 80 mm[Hg] MD Shantel Steven Work Phone: [facility] 07-16-2024 10:20-0400 Heart rate 60 /min MD Shantel Steven Work Phone: [facility] 07-16-2024 10:20-0400 Systolic blood pressure 151 mm[Hg] MD Shantel Steven Work Phone: [facility] 07-07-2024 11:41-0400 Body height 165.1 cm MD Shantel Steven Work Phone: [facility] 07-07-2024 11:41-0400 Body mass index (BMI) [Ratio] 42.4 kg/m2 MD Shantel Steven Work Phone: [facility] 07-07-2024 11:41-0400 Body weight 115.66 kg MD Shantel Steven Work Phone: [facility] 07-07-2024 11:41-0400 Diastolic blood pressure 79 mm[Hg] MD Shantel Steven Work Phone: [facility] 07-07-2024 11:41-0400 Heart rate 66 /min MD Shantel Steven Work Phone: [facility] 07-07-2024 11:41-0400 Systolic blood pressure 132 mm[Hg] MD Shantel Steven Work Phone: [facility] 06-16-2024 13:08-0400 Body height 165.1 cm MD Shantel Steven Work Phone: [facility] 06-16-2024 13:08-0400 Body mass index (BMI) [Ratio] 41.9 kg/m2 MD Shantel Steven Work Phone: [facility] 06-16-2024 13:08-0400 Body weight 114.3 kg MD Shantel tSeven Work Phone: [facility] 06-16-2024 13:08-0400 Diastolic blood pressure 73 mm[Hg] MD Shantel Steven Work Phone: [facility] 06-16-2024 13:08-0400 Heart rate 55 /min MD Shantel Steven Work Phone: [facility] 06-16-2024 13:08-0400 Systolic blood pressure 137 mm[Hg] MD Shantel Steven Work Phone: [facility] 06-05-2024 11:51-0400 Body height 165.1 cm MD Shantel Steven Work Phone: [facility] 06-05-2024 11:51-0400 Body mass index (BMI) [Ratio] 43.2 kg/m2 MD Shantel Steven Work Phone: [facility] 06-05-2024 11:51-0400 Body temperature 96.6 [degF] MD Shantel Steven Work Phone: [facility] 06-05-2024 11:51-0400 Body weight 117.7 kg MD Shantel Steven Work Phone: [facility] 06-05-2024 11:51-0400 Diastolic blood pressure 74 mm[Hg] MD Shantel Steven Work Phone: [facility] 06-05-2024 11:51-0400 Heart rate 63 /min MD Shantel Steven Work Phone: [facility] 06-05-2024 11:51-0400 Respiratory rate 18 /min MD Shantel Steven Work Phone: [facility] 06-05-2024 11:51-0400 SaO2% (BldA) [Mass fraction] 97 % MD Shantel Steven Work Phone: [facility] 06-05-2024 11:51-0400 Systolic blood pressure 138 mm[Hg] MD Shantel Steven Work Phone: [facility] 05-22-2024 09:18-0400 Heart rate 55 /min MD Shantel Steven Work Phone: [facility] 05-22-2024 09:09-0400 Body temperature 97.8 [degF] MD Shantel Steven Work Phone: [facility] 05-22-2024 09:09-0400 Diastolic blood pressure 64 mm[Hg] MD Shantel Steven Work Phone: [facility] 05-22-2024 09:09-0400 Respiratory rate 22 /min MD Shantel Steven Work Phone: [facility] 05-22-2024 09:09-0400 SaO2% (BldA) [Mass fraction] 94 % MD Shantel Steven Work Phone: [facility] 05-22-2024 09:09-0400 Systolic blood pressure 140 mm[Hg] MD Shantel Steven Work Phone: [facility] 05-22-2024 09:08-0400 Body height 165.1 cm MD Shantel Steven Work Phone: [facility] 05-22-2024 09:08-0400 Body weight 117.48 kg MD Shantel Steven Work Phone: [facility] 05-19-2024 14:16-0400 Body height 165.1 cm MD Shantel Steven Work Phone: [facility] 05-19-2024 14:16-0400 Body mass index (BMI) [Ratio] 43.1 kg/m2 MD Shantel Steven Work Phone: [facility] 05-19-2024 14:16-0400 Body weight 117.48 kg MD Shantel Steven Work Phone: [facility] 05-19-2024 14:16-0400 Diastolic blood pressure 72 mm[Hg] MD Shantel Steven Work Phone: [facility] 05-19-2024 14:16-0400 Heart rate 56 /min MD Shantel Steven Work Phone: [facility] 05-19-2024 14:16-0400 Systolic blood pressure 133 mm[Hg] MD Shantel Steven Work Phone: [facility] 05-07-2024 11:52-0400 Body height 165.1 cm MD Shantel Steven Work Phone: [facility] 05-07-2024 11:52-0400 Body mass index (BMI) [Ratio] 41.5 kg/m2 MD Shantel Steven Work Phone: [facility] 05-07-2024 11:52-0400 Body temperature 98.5 [degF] MD Shantel Steven Work Phone: [facility] 05-07-2024 11:52-0400 Body weight 113.39 kg MD Shantel Steven Work Phone: [facility] 05-07-2024 11:52-0400 Diastolic blood pressure 81 mm[Hg] MD Shantel Steven Work Phone: [facility] 05-07-2024 11:52-0400 Heart rate 91 /min MD Shantel Steven Work Phone: [facility] 05-07-2024 11:52-0400 Systolic blood pressure 141 mm[Hg] MD Shantel Steven Work Phone: [facility] 04-29-2024 12:54-0400 Body height 165.1 cm MD Shantel Steven Work Phone: [facility] 04-29-2024 12:54-0400 Body mass index (BMI) [Ratio] 41.5 kg/m2 MD Shantel Steven Work Phone: [facility] 04-29-2024 12:54-0400 Body weight 113.39 kg MD Shantel Steven Work Phone: [facility] 04-29-2024 12:54-0400 Diastolic blood pressure 58 mm[Hg] MD Shantel Steven Work Phone: [facility] 04-29-2024 12:54-0400 Heart rate 54 /min MD Shantel Steven Work Phone: [facility] 04-29-2024 12:54-0400 Systolic blood pressure 90 mm[Hg] MD Shantel Steven Work Phone: [facility] 04-03-2024 11:29-0400 Body height 165.1 cm MD Shantel Steven Work Phone: [facility] 04-03-2024 11:29-0400 Body mass index (BMI) [Ratio] 43.7 kg/m2 MD Shantel Steven Work Phone: [facility] 04-03-2024 11:29-0400 Body weight 119.29 kg MD Shantel Steven Work Phone: [facility] 04-03-2024 11:29-0400 Diastolic blood pressure 71 mm[Hg] MD Shantel Steven Work Phone: [facility] 04-03-2024 11:29-0400 Heart rate 56 /min MD Shantel Steven Work Phone: [facility] 04-03-2024 11:29-0400 Systolic blood pressure 116 mm[Hg] MD Shantel Steven Work Phone: [facility] 03-25-2024 15:15-0400 Body height 165.1 cm MD Shantel Steven Work Phone: [facility] 03-25-2024 15:15-0400 Body mass index (BMI) [Ratio] 43.9 kg/m2 MD Shantel Steven Work Phone: [facility] 03-25-2024 15:15-0400 Body weight 119.74 kg MD Shantel Steven Work Phone: [facility] 03-25-2024 15:15-0400 Diastolic blood pressure 87 mm[Hg] MD Shantel Steven Work Phone: [facility] 03-25-2024 15:15-0400 Heart rate 66 /min MD Shantel Steven Work Phone: [facility] 03-25-2024 15:15-0400 Systolic blood pressure 125 mm[Hg] MD Shantel Steven Work Phone: [facility] 02-15-2024 14:18-0400 Body height 165.1 cm [facility] 02-15-2024 14:18-0400 Body mass index (BMI) [Ratio] 38.6 kg/m2 [facility] 02-15-2024 14:18-0400 Body weight 105.23 kg [facility] 02-15-2024 14:18-0400 Diastolic blood pressure 66 mm[Hg] [facility] 02-15-2024 14:18-0400 Heart rate 55 /min [facility] 02-15-2024 14:18-0400 Systolic blood pressure 114 mm[Hg] [facility] [facility]24 10:23-0500 Body height 165.1 cm [facility] 01-18-2024 10:23-0500 Body mass index (BMI) [Ratio] 43.2 kg/m2 [facility] 01-18-2024 10:23-0500 Body weight 117.93 kg [facility] 01-18-2024 10:23-0500 Diastolic blood pressure 70 mm[Hg] [facility] 01-18-2024 10:23-0500 Heart rate 98 /min [facility] 01-18-2024 10:23-0500 SaO2% (BldA) [Mass fraction] 65 % [facility] 01-18-2024 10:23-0500 Systolic blood pressure 110 mm[Hg] [facility] 10-23-2023 16:00-0500 Body height 165.1 cm Néstorghassan Kochs Other [facility] [employer] Other 10-23-2023 16:00-0500 Body mass index (BMI) [Ratio] 44.63 kg/m2 Azghassan Kochs Other [employer] Other 10-23-2023 16:00-0500 Body temperature 96.8 [degF] Aziz Bakloves Other [employer] Other 10-23-2023 16:00-0500 Body weight 121.66 kg Azghassan Bakloves Other [employer] Other 10-23-2023 16:00-0500 Diastolic blood pressure 60 mm[Hg] Aziz Bakhous Other [employer] Other 10-23-2023 16:00-0500 Respiratory rate 18 /min Aziz Bakhous Other [employer] Other 10-23-2023 16:00-0500 SaO2% (BldA) [Mass fraction] 99 % Aziz Bakhous Other [employer] Other 10-23-2023 16:00-0500 Systolic blood pressure 124 mm[Hg] Jaleesa Vanessa Other [employer] Other 10-18-2023 13:45-0500 Body height 165.1 cm Shantel Steven Other [employer] Other 10-18-2023 13:45-0500 Body mass index (BMI) [Ratio] 44.86 kg/m2 Shantel Steven Other [employer] Other 10-18-2023 13:45-0500 Body temperature 97.3 [degF] Shantel Steven Other [employer] Other 10-18-2023 13:45-0500 Body weight 122.29 kg Shantel Steven Other [employer] Other 10-18-2023 13:45-0500 Diastolic blood pressure 84 mm[Hg] Shantel Steven Other [employer] Other 10-18-2023 13:45-0500 SaO2% (BldA) [Mass fraction] 97 % Shantel Steven Other [employer] Other 10-18-2023 13:45-0500 Systolic blood pressure 132 mm[Hg] Shantel Steven Other [employer] Other 09-04-2023 14:00-0400 Body height 165.1 cm Shantel Steven Other [employer] Other 09-04-2023 14:00-0400 Body mass index (BMI) [Ratio] 43.06 kg/m2 Shantel Steven Other [employer] Other 09-04-2023 14:00-0400 Body weight 117.39 kg Shantel Steven Other [employer] Other 09-04-2023 14:00-0400 Diastolic blood pressure 69 mm[Hg] Shantel Steven Other [employer] Other 09-04-2023 14:00-0400 Systolic blood pressure 127 mm[Hg] Shantel Steven Other [employer] Other 07-17-2023 10:00-0400 Body height 165.1 cm Shantel Steven Other [employer] Other 07-17-2023 10:00-0400 Body mass index (BMI) [Ratio] 43.03 kg/m2 Shantel Steven Other [employer] Other 07-17-2023 10:00-0400 Body weight 117.3 kg Shantel Steven Other [employer] Other 07-17-2023 10:00-0400 Diastolic blood pressure 76 mm[Hg] Shantel Steven Other [employer] Other 07-17-2023 10:00-0400 Systolic blood pressure 164 mm[Hg] Shantel Steven Other [employer] Other 04-30-2023 14:30-0400 Body height 165.1 cm Shantel Steven Other [employer] Other 04-30-2023 14:30-0400 Body mass index (BMI) [Ratio] 43.43 kg/m2 Shantel Steven Other [employer] Other 04-30-2023 14:30-0400 Body weight 118.39 kg Shantel Steven Other [employer] Other 04-30-2023 14:30-0400 Diastolic blood pressure 75 mm[Hg] Shantel Steven Other [employer] Other 04-30-2023 14:30-0400 Systolic blood pressure 135 mm[Hg] Shantel Steven Other [employer] Other 03-09-2023 12:15-0400 Body height 165.1 cm Shantel Steven Other [employer] Other 03-09-2023 12:15-0400 Body mass index (BMI) [Ratio] 43.59 kg/m2 Shantel Steven Other [employer] Other 03-09-2023 12:15-0400 Body weight 118.84 kg Shantel Steven Other [employer] Other 03-09-2023 12:15-0400 Diastolic blood pressure 82 mm[Hg] Shantel Steven Other [employer] Other 03-09-2023 12:15-0400 SaO2% (BldA) [Mass fraction] 97 % Shantel Steven Other [employer] Other 03-09-2023 12:15-0400 Systolic blood pressure 130 mm[Hg] Shantel Steven Other [employer] Other 02-20-2023 10:00-0400 Body height 165.1 cm Shantel Steven Other [employer] Other 02-20-2023 10:00-0400 Body mass index (BMI) [Ratio] 41.93 kg/m2 Shantel Steven Other [employer] Other 02-20-2023 10:00-0400 Body weight 114.31 kg Shantel Steven Other [employer] Other 02-20-2023 10:00-0400 Diastolic blood pressure 84 mm[Hg] Shantel Steven Other [employer] Other 02-20-2023 10:00-0400 Systolic blood pressure 132 mm[Hg] Shantel Steven Other [employer] Other 08-04-2022 13:33-0400 Blood Pressure Location [employer] [facility] [place] 08-04-2022 13:33-0400 Diastolic blood pressure 88 mm[Hg] [employer] [facility] [facility] [place] 08-04-2022 13:33-0400 Heart rate 76 /min Bin N[employer] [facility] [place] 08-04-2022 13:33-0400 Respiratory rate 16 /min [facility] [facility] [place] 08-04-2022 13:33-0400 Systolic blood pressure 130 mm[Hg] Bin N[employer] [facility] [place] 08-25-2021 14:30-0400 Body height 165.1 cm Akbar Cui II Other [employer] Other 08-25-2021 14:30-0400 Body mass index (BMI) [Ratio] 43.26 kg/m2 Akbar Cui II Other [employer] Other 08-25-2021 14:30-0400 Body weight 117.94 kg Akbar Cui II Other [employer] Other Encounters Encounter Date Encounter Type Care Provider Facility Start: 11-04-2024 ambulatory FRANCHESCA Garcia ty:DESIRE Becker Start: 10-22-2024 End: 10-22-2024 Emergency department patient visit Shantel Steven Facility:[facility] Start: 10-16-2024 End: 10-20-2024 Evaluation and management of inpatient Ange Vergara Facility:[facility] Start: 10-08-2024 End: 10-08-2024 ambulatory [facility] Start: 10-01-2024 End: 10-01-2024 Bambocherri flowsmagdalene Chacon MD Work Phone: [facility] Start: 10-01-2024 End: 10-01-2024 Juliette Chacon MD Work Phone: [facility] Start: 10-01-2024 End: 10-01-2024 Office outpatient visit 15 minutes Christel Chacon MD Work Phone: [facility] Comment on above: JED (obstructive sle ep apnea) (Primary Dx); Hypothyroidism (acquired) (CMS/HCC) Start: 10-01-2024 End: 10-01-2024 ambulatory CHRISTEL CHACON Not Available Start: 09-26-2024 End: 09-30-2024 Telephone encounter Christel Chacon MD Work Phone: [facility] Start: 09-03-2024 ambulatory [facility] Start: 08-20-2024 End: 08-20-2024 ambulatory [facility] Start: 08-07-2024 End: 08-07-2024 ambulatory MD Shantel Steven Work Phone: [facility] Work Phone: Start: 08-07-2024 End: 08-07-2024 Patient encounter procedure MD Shantel Steven Work Phone: [facility] Work Phone: Start: 07-30-2024 Non-patient / Non-visit MD Alessia Steven Work Phone: [facility] Work Phone: Start: 07-25-2024 Non-patient / Non-visit MD Alessia Steven Work Phone: [facility] Work Phone: Start: 07-24-2024 Non-patient / Non-visit MD Alessia Steven Work Phone: [facility] Work Phone: Start: 07-22-2024 End: 07-22-2024 ambulatory CHRISTEL CHACON Not Available Start: 07-17-2024 End: 07-17-2024 Patient encounter procedure MD Shantel Steven Work Phone: [facility] Work Phone: Start: 07-17-2024 End: 07-17-2024 ambulatory MD Shantel Steven Work Phone: [facility] Work Phone: Start: 07-17-2024 End: 07-17-2024 Departed Referred MD Shantel Steven Work Phone: [facility] [place] Work Phone: Start: 07-17-2024 End: 07-17-2024 MD Shantel Steven Work Phone: [facility] Work Phone: Start: 07-16-2024 End: 07-16-2024 ambulatory MD Shantel Steven Work Phone: [facility] Work Phone: Start: 07-16-2024 End: 07-16-2024 Patient encounter procedure MD Shantel Steven Work Phone: [facility] Work Phone: Start: 07-16-2024 End: 07-16-2024 MD Shantel Steven Work Phone: [facility] Work Phone: Start: 07-15-2024 End: 07-15-2024 Non-patient / Non-visit MD Shantel Steven Work Phone: [facility] Work Phone: Start: 07-15-2024 Non-patient / Non-visit MD Alessia Steven Work Phone: [facility] Work Phone: Start: 07-15-2024 MD Shantel painting Work Phone: [facility] Work Phone: Start: 07-14-2024 Non-patient / Non-visit MD Alessia Steven Work Phone: [facility] Work Phone: Start: 07-14-2024 MD Shantel paniting Work Phone: [facility] Work Phone: Start: 07-10-2024 End: 07-10-2024 ambulatory TEODORA GARCIA Not Available Start: 07-07-2024 End: 07-07-2024 ambulatory MD Shantel Steven Work Phone: [facility] Work Phone: Start: 07-07-2024 End: 07-07-2024 Patient encounter procedure MD Shantel Steven Work Phone: [facility] Work Phone: Start: 07-07-2024 End: 07-07-2024 MD Shantel Steven Work Phone: [facility] Work Phone: Start: 06-25-2024 ambulatory MD Shantel gray Work Phone: [facility] Work Phone: Start: 06-25-2024 Non-patient / Non-visit MD Alessia Steven Work Phone: [facility] Work Phone: Start: 06-25-2024 MD Shantel painting Work Phone: [facility] Work Phone: Start: 06-24-2024 Non-patient / Non-visit MD Alessia Steven Work Phone: [facility] Work Phone: Start: 06-24-2024 MD Shantel painting Work Phone: [facility] Work Phone: Start: 06-18-2024 End: 06-18-[address] [facility] Start: 06-16-2024 End: 06-16-2024 ambulatory MD Shantel Steven Work Phone: [facility] Work Phone: Start: 06-16-2024 End: 06-16-2024 Patient encounter procedure MD Shantel Steven Work Phone: [facility] Work Phone: Start: 06-16-2024 End: 06-16-2024 MD Shantel Steven Work Phone: [facility] Work Phone: Start: 06-10-2024 Non-patient / Non-visit MD Alessia Steven Work Phone: [facility] Work Phone: Start: 06-10-2024 MD Shantel painting Work Phone: [facility] Work Phone: Start: 06-09-2024 Non-patient / Non-visit MD Alessia Steven Work Phone: [facility] Work Phone: Start: 06-09-2024 MD Shantel painting Work Phone: [facility] Work Phone: Start: 06-05-2024 End: 06-05-2024 ambulatory MD Shantel Steven Work Phone: [facility] Work Phone: Start: 06-05-2024 End: 06-05-2024 Patient encounter procedure MD Shantel Steven Work Phone: [facility] Work Phone: Start: 06-05-2024 End: 06-05-2024 MD Shantel Steven Work Phone: [facility] Work Phone: Start: 06-01-2024 Non-patient / Non-visit MD Alessia Steven Work Phone: [facility] Work Phone: Start: 06-01-2024 MD Shantel painting Work Phone: [facility] Work Phone: Start: 05-26-2024 Non-patient / Non-visit MD Alessia Steven Work Phone: [facility] Work Phone: Start: 05-26-2024 MD Shantel painting Work Phone: [facility] Work Phone: Start: 05-22-2024 End: 05-22-2024 Emergency department patient visit MD Shantel Steven Work Phone: [facility] Work Phone: Start: 05-22-2024 End: 05-22-2024 MD Shantel Steven Work Phone: [facility] Work Phone: Start: 05-20-2024 Non-patient / Non-visit MD Alessia Steven Work Phone: [facility] Work Phone: Start: 05-20-2024 MD Shantel painting Work Phone: [facility] Work Phone: Start: 05-20-2024 End: 05-20-2024 ambulatory [facility] Start: 05-19-2024 End: 05-19-2024 ambulatory MD Shantel Steven Work Phone: [facility] Work Phone: Start: 05-19-2024 End: 05-19-2024 Patient encounter procedure MD Shantel Steven Work Phone: [facility] Work Phone: Start: 05-19-2024 End: 05-19-2024 MD Shantel Steven Work Phone: [facility] Work Phone: Start: 05-07-2024 End: 05-07-2024 ambulatory MD Shantel Steven Work Phone: [facility] Work Phone: Start: 05-07-2024 End: 05-07-2024 Patient encounter procedure MD Shantel Steven Work Phone: [facility] Work Phone: Start: 05-07-2024 End: 05-07-2024 MD Shantel Steven Work Phone: [facility] Work Phone: Start: 05-06-2024 Non-patient / Non-visit MD Alessia Steven Work Phone: [facility] Work Phone: Start: 05-06-2024 MD Shantel painting Work Phone: [facility] Work Phone: Start: 05-05-2024 Non-patient / Non-visit MD Alessia Steven Work Phone: [facility] Work Phone: Start: 05-05-2024 MD Shantel painting Work Phone: [facility] Work Phone: Start: 05-04-2024 End: 05-06-2024 Non-patient / Non-visit MD Shantel Steven Work Phone: [facility] Work Phone: Start: 05-04-2024 End: 05-06-2024 MD Shantel Steven Work Phone: [facility] Work Phone: Start: 05-04-2024 Non-patient / Non-visit MD Alessia Steven Work Phone: [facility] Work Phone: Start: 05-04-2024 MD Shantel painting Work Phone: [facility] Work Phone: Start: 05-02-2024 Non-patient / Non-visit MD Alessia Steven Work Phone: [facility] Work Phone: Start: 05-02-2024 MD Shantel painting Work Phone: [facility] Work Phone: Start: 05-01-2024 Non-patient / Non-visit MD Alessia Steven Work Phone: [facility] Work Phone: Start: 05-01-2024 MD Shantel painting Work Phone: [facility] Work Phone: Start: 04-30-2024 Non-patient / Non-visit MD Alessia Steven Work Phone: [facility] Work Phone: Start: 04-30-2024 MD Shantel painting Work Phone: [facility] Work Phone: Start: 04-30-2024 Non-patient / Non-visit MD Alessia Steven Work Phone: [facility] Work Phone: Start: 04-30-2024 MD Shantel painting Work Phone: [facility] Work Phone: Start: 04-29-2024 End: 04-29-2024 Patient encounter procedure MD Shantel Steven Work Phone: [facility] Work Phone: Start: 04-29-2024 End: 04-29-2024 MD Shantel Steven Work Phone: [facility] Work Phone: Start: 04-03-2024 End: 04-03-2024 ambulatory MD Shantel Steven Work Phone: [facility] Work Phone: Start: 04-03-2024 End: 04-03-2024 Patient encounter procedure MD Shantel Steven Work Phone: [facility] Work Phone: Start: 04-03-2024 End: 04-03-2024 MD Shantel Steven Work Phone: [facility] Work Phone: Start: 04-01-2024 Non-patient / Non-visit MD Alessia Steven Work Phone: [facility] Work Phone: Start: 04-01-2024 MD Shantel painting Work Phone: [facility] Work Phone: Start: 03-31-2024 Non-patient / Non-visit MD Alessia Steven Work Phone: [facility] Work Phone: Start: 03-31-2024 MD Shantel painting Work Phone: [facility] Work Phone: Start: 03-28-2024 Non-patient / Non-visit MD Alessia Steven Work Phone: [facility] Work Phone: Start: 03-28-2024 MD Shantel painting Work Phone: [facility] Work Phone: Start: 03-27-2024 Non-patient / Non-visit MD Alessia Steven Work Phone: [facility] Work Phone: Start: 03-27-2024 MD Shantel painting Work Phone: [facility] Work Phone: Start: 03-26-2024 Non-patient / Non-visit MD Alessia Steven Work Phone: [facility] Work Phone: Start: 03-26-2024 MD Shantel painting Work Phone: [facility] Work Phone: Start: 03-25-2024 End: 03-25-2024 Patient encounter procedure MD Shantel Steven Work Phone: [facility] Work Phone: Start: 03-25-2024 End: 03-25-2024 MD Shantel Steven Work Phone: [facility] Work Phone: Start: 03-13-2024 End: 03-13-2024 Patient encounter procedure MD Shantel Steven Work Phone: [facility] [address] Work Phone: Start: 03-13-2024 End: 03-13-2024 ambulatory MD Shantel Steven Work Phone: [facility] Work Phone: Start: 03-07-2024 End: 03-07-[address] [facility] Start: 02-19-2024 [facility] Start: 02-15-2024 End: 02-15-2024 ambulatory [facility] Work Phone: Start: 02-15-2024 End: 02-15-2024 Patient encounter procedure [facility] Work Phone: Start: 01-29-2024 Non-patient / Non-visit [facility] Work Phone: Start: 01-24-2024 Non-patient / Non-visit [facility] Work Phone: Start: 01-22-2024 Non-patient / Non-visit [facility] Work Phone: Start: 01-18-2024 End: 01-18-2024 Patient encounter procedure [facility] Work Phone: Start: 01-15-2024 Non-patient / Non-visit [facility] Work Phone: Start: 01-04-2024 Non-patient / Non-visit [facility] Work Phone: Start: 12-18-2023 End: 12-18-2023 ambulatory Shantel Tenisha Other [employer] Other Start: 12-18-2023 Telephone encounter Shantel Tenisha [facility] Start: 11-19-2023 End: 11-19-2023 ambulatory Shantel Tenisha Other [employer] Other Start: 11-19-2023 Telephone encounter Shantel Tenisha [facility] Start: 10-23-2023 End: 10-23-2023 ambulatory Azghassan Nhungloves Other [employer] Other Start: 10-23-2023 Office outpatient ne w 30 minutes Aziz Bakhous [facility] Start: 10-22-2023 End: 10-22-2023 ambulatory Shantel Tenisha Other [employer] Other Start: 10-22-2023 Telephone encounter Shantel Tenisha [facility] Start: 10-18-2023 End: 10-18-2023 ambulatory Shantel Tenisha Other [employer] Other Start: 10-18-2023 Office outpatient vi sit 15 minutes Shantel Tenisha [facility] Start: 09-07-2023 End: 09-07-2023 ambulatory Shantel Tenisha Other [employer] Other Start: 09-07-2023 Telephone encounter Shantel Tenisha [facility] Start: 09-04-2023 End: 09-04-2023 ambulatory Shantel Steven Other [employer] Other Start: 09-04-2023 Office outpatient vi sit 25 minutes Shantel Steven [facility] Start: 08-23-2023 End: 08-23-2023 ambulatory Shantel Steven Other [employer] Other Start: 08-23-2023 Telephone encounter Shantel Steven [facility] Start: 07-23-2023 End: 07-23-2023 ambulatory Shantel Steven Other [employer] Other Start: 07-23-2023 Telephone encounter Shantel Steven [facility] Start: 07-17-2023 End: 07-17-2023 ambulatory Shantel Steven Other [employer] Other Start: 07-17-2023 Office outpatient vi sit 25 minutes Shantel Steven [facility] Start: 05-30-2023 End: 05-30-2023 ambulatory Shantel Steven Other [employer] Other Start: 05-30-2023 Telephone encounter Shantel Steven [facility] Start: 05-22-2023 End: 05-22-2023 ambulatory Shantel Steven Other [employer] Other Start: 05-22-2023 Telephone encounter Shantel Steven [facility] Start: 05-16-2023 End: 05-16-2023 ambulatory Shantel Steven Other [employer] Other Start: 05-16-2023 Telephone encounter Shantel Steven [facility] Start: 05-07-2023 End: 05-07-2023 ambulatory Shantel Steven Other [employer] Other Start: 05-07-2023 Telephone encounter Shantel Steven [facility] Start: 04-30-2023 End: 04-30-2023 ambulatory Shantel Steven Other [employer] Other Start: 04-30-2023 Office outpatient vi sit 25 minutes Shantel Steven [facility] Start: 04-25-2023 End: 04-25-2023 ambulatory Shantel Steven Other [employer] Other Start: 04-25-2023 Telephone encounter Shantel Steven [facility] Start: 04-12-2023 End: 04-12-2023 ambulatory Shantel Steven Other [employer] Other Start: 04-12-2023 Telephone encounter Shantel Steven [facility] Start: 03-09-2023 End: 03-09-2023 ambulatory Shantel Steven Other [employer] Other Start: 03-09-2023 Office outpatient vi sit 15 minutes Shantel Steven [facility] Start: 03-07-2023 End: 03-07-2023 ambulatory Shantel Steven Other [employer] Other Start: 03-07-2023 Telephone encounter Shantel Steven [facility] Start: 03-06-2023 End: 03-06-[address] SHANTEL STEVEN Facility:[facility] Start: 03-05-2023 End: 03-05-2023 ambulatory Shantel Steven Other [employer] Other Start: 03-05-2023 Telephone encounter Shantel Steven [facility] Start: 02-26-2023 End: 02-26-2023 ambulatory Shantel Steven Other [employer] Other Start: 02-26-2023 Telephone encounter Shantel Steven [facility] Start: 02-24-2023 End: 02-24-[address] SHANTEL STEVEN Facility:[facility] Start: 02-23-2023 End: 02-23-2023 ambulatory Shantel Steven Other [employer] Other Start: 02-23-2023 Telephone encounter Shantel Steven [facility] Start: 02-20-2023 End: 02-20-2023 ambulatory Shantel Steven Other [employer] Other Start: 02-20-2023 Transitional care nm misha srvc 14 day discharge Shantel Steven [facility] Start: 02-16-2023 End: 02-16-2023 ambulatory Shantel Steven Other [employer] Other Start: 02-16-2023 Telephone encounter Shantel Steven [facility] Start: 02-13-2023 End: 02-14-[address] SHANTEL STEVEN Facility:[facility] Start: 02-02-2023 End: 02-02-2023 ambulatory Shantel Steven Other [employer] Other Start: 02-02-2023 Telephone encounter Shantel Steven [facility] Start: 01-16-2023 End: 01-17-[address] DOCTOR CARMONA Facility:[facility] Start: 01-05-2023 End: 01-05-2023 ambulatory BIN ROJAS Facility:[facility] Start: 01-01-2023 End: 01-02-2023 ambulatory ANALISA BRYANT Facility:[facility] Start: 11-29-2022 End: 11-29-2022 ambulatory Shantel Steven Other [employer] Other Start: 11-29-2022 Telephone encounter Shantel Steven [facility] Start: 11-27-2022 End: 11-27-2022 ambulatory Shantel Steven Other [employer] Other Start: 11-27-2022 Telephone encounter Shantel Steven [facility] Start: 11-24-2022 End: 11-24-2022 ambulatory Shantel Steven Other [employer] Other Start: 11-24-2022 Telephone encounter Shantel Steven [facility] Start: 11-06-2022 ambulatory YAMEL MCCRACKEN Facility :H1 Start: 09-15-2022 End: 09-16-[address] SHANTEL STEVEN Facility:H1 Start: 08-04-2022 End: 08-04-2022 Patient encounter procedure Bin Butts NILL General Surgery Nill/Said Afsaneh Start: 05-02-2022 End: 05-02-[address] SHANTEL STEVEN Facility: Start: 08-25-2021 Office outpatient ne w 45 minutes Akbar Cui II [facility] Start: 08-09-2017 End: 08-12-2017 Ambulatory [...] abdominal hyst erectomy with bilateral salpingo-oophorectomy Bin SORENSON Plan of Treatment Date Care Activity Detail Author Start: 10-01-2024 End: 10-01-2024 Patient encounter procedure [facility] Comment on above: Arrived Start: 09-30-2024 End: 09-30-2024 Patient encounter procedure 09/30/2024 1:00 PM EST Office Visit [facility] [address] [place] [address] Wanda Patel, [address] [place] [address] [facility] [address] Start: 07-17-2024 Bacteria identified in Urine by Culture [facility] Start: 07-17-2024 [facility] Start: 2024 Influenza vaccination Influenz a Vaccine (#1) [facility] Start: 06-25-2024 Patient referral [facility] Work Phone: Start: 06-16-2024 Patient referral [facility] Work Phone: Start: 05-07-2024 Patient referral [facility] Work Phone: Start: 05-04-2024 Blood Culture 1 Blood Culture 1 [facility] Start: 02-15-2024 Patient referral [facility] Work Phone: Comprehensive metabo lic 2000 panel - Serum or Plasma [facility] CT Abdomen and Pelvi s WO contrast [facility] Microalbumin [Mass/volume] in Urine [facility] Patient referral [facility] Work Phone: Renal function 1999 panel - Serum or Plasma [facility] US [facility] Immunizations Immunization Date Immunization Notes Care Provider Fa aga 01-18-2024 Pneumococcal Conjugate Vaccine, 20 valent [facility] 09-04-2023 influenza, high dose seasonal, preservative-free Shantel Steven Other [facility] Other 09-04-2023 influenza virus vaccine, unspecified formulation [facility] 02-04-2021 COVID-19 mRNA, Comirnaty (Pfizer) [facility] 01-21-2021 COVID-19 mRNA, Comirnaty (Pfizer) [facility] 10-09-2018 influenza virus vaccine, split virus (incl. purified surface antigen) Shantel Steven Other [facility] Other 10-09-2018 influenza virus vaccine, unspecified formulation [facility] NEGATED: Highlighted row has not occurred!08-21-2019 influenza virus vaccine, split virus (incl. purified surface antigen) Shantel Steven Other [employer] Other Payers Date Payer Category Payer Self-pay [id number] 2023 Medicare (Managed Care) [employer] [id number] 1959 Medicare [id number] 1959 Self-pay [id number] 1945 Unknown [id number] [id number]. 2.593 1946 Unknown [id number] 2.16.840.1.909410.3.579. 2.593 1946 Unknown [id number] 2.16.840.1.508006.3.579. 2.593 1946 Unknown [id number] 2.16.840.1.943358.3.579. 2.593 1946 Unknown [id number] 2.16.840.1.593451.3.579. 2.593 1946 Unknown [id number] 2.16.840.1.864121.3.579. 2.593 1946 Unknown [id number] 2.16.840.1.598221.3.579. 2.593 1946 Unknown [id number] 2.16.840.1.521137.3.579. 2.593 1946 Unknown [id number] 2.16.840.1.503991.3.579. 2.593 1946 Unknown [id number] 2.16.840.1.557770.3.579. 2.1259 1946 Unknown [id number] 2.16.840.1.728952.3.579. 2.1259 1946 Unknown [id number] 2.16.840.1.800165.3.579. 2.1259 1946 Unknown [id number] 2.16.840.1.390892.3.579. 2.727 Unknown Unknown [id number] 2.16.840.1.888347.3.579. 2.531 Unknown [id number] 2.16.840.1.318960.3.579. 2.531 Unknown [id number] 2.16.840.1.947652.3.579. 2.531 Unknown [id number] 2.16.840.1.945786.3.579. 2.531 Unknown [id number] 2.16.840.1.518388.3.579. 2.531 Social History Date Type Detail Facility Start: 07-22-2024 End: 10-01-2024 Sex Assigned At [facility] [place] Other Start: 08-04-2022 End: 07-03-2024 Tobacco smoking status Ex-smoker (finding) General Surgery Afsaneh Tobacco smoking status Never Gener al Surgery Afsaneh Start: 1945 Sex Assigned At Female F [facility] History of tobacco use Current smoker [facility] History of tobacco use Cigarette Smoker N [facility] Start: 07-03-2024 Tobacco use and exposure Smokeless tobacco non-user [facility] Start: 07-22-2024 End: 10-01-2024 Alcoholic beverage intake Lifetime non-drinker (finding) [facility] Start: 07-22-2024 End: 10-01-2024 History of Social function [facility] Start: 07-08-2024 Alcohol Comment caffeine: 1-2 cups per day [facility] Start: 1945 Sex assigned at Not on file N [facility] Medical Equipment Procedure Code Equipment Code Equipment Origin al Text Equipment Identifier Dates Blood Sugar Diagnostic (True Metrix Glucose Test Strip) strip Start: 03-31-2024 Pen Needle, Diab etic (Comfort Ez Pen [place]) 33 gauge x 5/32 needle Start: 03-25-2024 Blood Sugar Diagnostic (True Metrix Glucose Test Strip) strip Start: 03-31-2024 End: 03-31-2024 Blood Sugar Diagnostic (True Metrix Glucose Test Strip) strip Start: 03-31-2024 Pen Needle, Diab etic (Comfort Ez Pen [place]) 33 gauge x 5/32 needle Start: 03-25-2024 Blood Sugar Diagnostic (True Metrix Glucose Test Strip) strip Start: 03-31-2024 End: 03-31-2024 Blood Sugar Diagnostic (True Metrix Glucose Test Strip) strip Start: 03-31-2024 Pen Needle, Diab etic (Comfort Ez Pen [place]) 33 gauge x 5/32 needle Start: 03-25-2024 Blood Sugar Diagnostic (True Metrix Glucose Test Strip) strip Start: 03-31-2024 End: 03-31-2024 Blood Sugar Diagnostic (True Metrix Glucose Test Strip) strip Start: 03-31-2024 Pen Needle, Diab etic (Comfort Ez Pen [place]) 33 gauge x 5/32 needle Start: 03-25-2024 Blood Sugar Diagnostic (True Metrix Glucose Test Strip) strip Start: 03-31-2024 End: 03-31-2024 Blood Sugar Diagnostic (True Metrix Glucose Test Strip) strip Start: 03-31-2024 Pen Needle, Diab etic (Comfort Ez Pen [place]) 33 gauge x 5/32 needle Start: 03-25-2024 Blood Sugar Diagnostic (True Metrix Glucose Test Strip) strip Start: 03-31-2024 End: 03-31-2024 Blood Sugar Diagnostic (True Metrix Glucose Test Strip) strip Start: 03-31-2024 Pen Needle, Diab etic (Comfort Ez Pen [place]) 33 gauge x 5/32 needle Start: 03-25-2024 Blood Sugar Diagnostic (True Metrix Glucose Test Strip) strip Start: 03-31-2024 End: 03-31-2024 Blood Sugar Diagnostic (True Metrix Glucose Test Strip) strip Start: 03-31-2024 Pen Needle, Diab etic (Comfort Ez Pen [place]) 33 gauge x 5/32 needle Start: 03-25-2024 Blood Sugar Diagnostic (True Metrix Glucose Test Strip) strip Start: 03-31-2024 End: 03-31-2024 Blood Sugar Diagnostic (True Metrix Glucose Test Strip) strip Start: 03-31-2024 Pen Needle, Diab etic (Comfort Ez Pen [place]) 33 gauge x 5/32 needle Start: 03-25-2024 Blood Sugar Diagnostic (True Metrix Glucose Test Strip) strip Start: 03-31-2024 End: 03-31-2024 Blood Sugar Diagnostic (True Metrix Glucose Test Strip) strip Start: 03-31-2024 Pen Needle, Diab etic (Comfort Ez Pen [place]) 33 gauge x 5/32 needle Start: 03-25-2024 Blood Sugar Diagnostic (True Metrix Glucose Test Strip) strip Start: 03-31-2024 End: 03-31-2024 Functional Status Date Assessment Result Facility 08-04-2022 Functional Status N/A [facility] 08-25-2021 to 10-08-2024 Christel Chacon MD - 10/01/2024 9:50 AM ESTTelephone Encounter - Jeanne Chacon - 09/30/2024 11:01 AM ESTTelephone Encounter - Jeanne Chacon - 09/30/2024 11:01 AM EST Note Date & Type Note Facility 10-08-2024 Note Patient here for 1 m o follow up chronic diastolic heart failure, hypertension, PAF, and CAD. Lisinopril was held at last visit due to acute CARMELO. She said she did not stop this. She had repeat labs 2 weeks ago. Denies chest pain, palpitations, and bleeding on Xarelto. Says her SOB is intermittent. Review of Systems Cardiovascular: Positive for dyspnea on exertion (intermittent). Respiratory: Positive for shortness of breath (intermittent). Musculoskeletal: Positive for muscle weakness. Neurological: Positive for light-headedness and tremors. All other systems reviewed and are negative. [facility] 10-01-2024 History of Present illness Narrative Subjective Patient ID: Joe Call is a 79 y.o. female who presents for Sleep Apnea Pt did not get sleep study due to claustrophobia. TFTs pending Family History Problem Relation Name Age of Onset Heart failure Mother Coronary artery disease Mother Heart failure Father Coronary artery disease Father Alzheimer's disease Sister Active Ambulatory Problems Diagnosis Date Noted Abdominal swelling, generalized 05/20/2024 Acquired hammer toe of right foot 07/03/2024 Acute on chronic diastolic CHF (congestive heart failure) (CMS/HCC) 05/20/2024 CARMELO (acute kidney injury) (CMS/HCC) 05/20/2024 Anxiety 05/20/2024 Aortic valve disorder 08/20/2012 Back pain with history of spinal surgery 05/20/2024 Benign essential hypertension (CMS/HCC) 04/02/2012 Carotid artery stenosis 07/20/2022 Carotid bruit 01/16/2023 Cervical disc disease 05/20/2024 Chalazion of right eye 05/20/2024 Chronic diarrhea 01/16/2023 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) 01/16/2023 Diabetes mellitus ([facility]) 07/03/2024 Diabetic foot ([facility]) 07/03/2024 Diabetic neuropathy ([facility]) 01/16/2023 Diabetic peripheral neuropathy associated with type 2 diabetes mellitus ([facility]) 07/03/2024 Diastolic dysfunction 09/05/2022 Disability of walking 07/03/2024 Diverticulitis of colon 03/20/2012 Dyspnea 05/20/2024 Exocrine pancreatic insufficiency (CMS/[facility]) 01/16/2023 Gastroesophageal reflux disease 01/16/2023 History of malignant neoplasm of breast 03/20/2012 Hordeolum externum (stye) 05/20/2024 Hyperlipidemia ([facility]) 07/03/2024 Hypertension ([facility]) 01/16/2023 Near syncope 07/03/2024 Hypomagnesemia 01/16/2023 Hypothyroidism ([facility]) 01/16/2023 Lumbar degenerative disc disease 05/20/2024 Lumbar spondylosis 05/20/2024 Lymph edema 05/20/2024 Lymphedema of left arm 03/20/2012 Macular degeneration 05/20/2024 Memory changes 05/20/2024 Morbid obesity ([facility]) 07/20/2022 Obstructive sleep apnea syndrome 03/20/2012 Paroxysmal atrial fibrillation ([facility]) 03/20/2012 Paroxysmal supraventricular tachycardia ([facility]) 03/26/2012 Psoriasis ([facility]) 03/20/2012 Secondary hyperparathyroidism ([facility]) 05/20/2024 Stage 3 chronic kidney disease (HCC) ([facility]) 01/16/2023 Hypertensive chronic kidney disease with stage 1 through stage 4 chronic kidney disease, or unspecified chronic kidney disease ([facility]) 07/03/2024 Thrush of mouth and esophagus ([facility]) 05/20/2024 Tremor 06/18/2024 Type 2 diabetes mellitus with hyperglycemia, with long-term current use of insulin ([facility]) 07/03/2024 Venous insufficiency (chronic) (peripheral) 07/03/2024 Essential tremor 07/08/2024 Balance disorder 07/08/2024 Ataxia 07/08/2024 Diabetic peripheral neuropathy (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 ([facility] 05/20/2024 Pharyngitis 07/03/2024 CKD (chronic kidney disease), stage IV ([facility]) 07/03/2024 Stress incontinence of urine 05/20/2024 Urinary incontinence 05/20/2024 UTI (urinary tract infection) 05/20/2024 Yeast cystitis 05/20/2024 Past Medical History: Diagnosis Date Anemia Breast cancer ([facility]) Coronary heart disease ([facility]) Diverticulosis GERD (gastroesophageal reflux disease) NE (myocardial infarction) ([facility]) Myocardial infarction ([facility]) Type II diabetes mellitus ([facility]) Past Surgical History: Procedure Laterality Date APPENDECTOMY BACK SURGERY CARDIAC CATHETERIZATION CARPAL TUNNEL RELEASE CHOLECYSTECTOMY COLECTOMY HYSTERECTOMY MASTECTOMY Bilateral Allergies Allergen Reactions Chocolate Flavoring Agent (Non-Screening) Iodine Other and Unknown Metformin Hcl Other Reaction(s): diarrhea Shellfish-Derived Products Sulfa Antibiotics Other Reaction(s): diarrhea, GI problems, Other, Rash Iodinated Contrast Media Rash Other Reaction(s): Unknown Current Outpatient Medications on File Prior to Visit Medication Sig Dispense Refill ALPRAZolam (Xanax) 0.25 MG tablet Take 0.25 mg by mouth as needed at bedtime atorvastatin (Lipitor) 20 MG tablet Take 20 mg by mouth in the morning. Basaglar KwikPen 100 UNIT/ML pen Inject 20 Units under the skin in the morning and 20 Units before bedtime. biotin 10 MG capsule Take 1 capsule by mouth Daily bumetanide (Bumex) 1 MG tablet Take 1 mg by mouth in the morning and 1 mg in the evening. cholecalciferol (Vitamin D-3) 25 MCG (1000 UT) capsule Take 25 mcg by mouth Daily dilTIAZem CD (Cardizem CD) 120 MG 24 hr capsule Take 120 mg by mouth Daily famotidine (Pepcid) 20 MG tablet Take 1 tablet (20 mg) by mouth at bedtime 90 tablet 0 gabapentin (Neurontin) 100 MG capsule Take 1 capsule (100 mg) by mouth in the morning and 1 capsule (100 mg) in the evening and 1 capsule (100 mg) before bedtime. 30 capsule 2 insulin NPH, Isophane, (HumuLIN N,NovoLIN N) 100 UNIT/ML injection Inject 1 Units under the skin Lantus 100 UNIT/ML injection Inject 35 Units under the skin in the morning. levothyroxine (Synthroid, Levoxyl) 125 MCG tablet Take 125 mcg by mouth in the morning. Take before meals. lisinopril 10 MG tablet Take 20 mg by mouth in the morning. metoprolol tartrate (Lopressor) 100 MG tablet Take 1.5 tablets by mouth in the morning and 1.5 tablets before bedtime. Multiple Vitamins-Minerals (PRESERVISION AREDS 2 PO) Take by mouth nystatin (Mycostatin) cream Apply 1 application topically if needed omeprazole (PriLOSEC) [address] capsule Take 1 capsule (40 mg) by mouth in the morning. Take before meals. Do not crush or chew.. 90 capsule 0 oxyCODONE-acetaminophen (Percocet) 5-325 MG tablet Take 1 tablet by mouth in the morning and 1 tablet before bedtime. Probiotic Product (Align) 4 MG capsule Take 1 capsule by mouth Daily rivaroxaban (Xarelto) 20 MG tablet Take 20 mg by mouth in the evening. Take with meals spironolactone (Aldactone) 50 MG tablet Take 50 mg by mouth Daily No current facility-administered medications on file prior to visit. Objective Last Recorded Vitals Vitals: 10/01/24 0951 BP: (!) 138/110 ENT Physical Exam Constitutional Appearance: patient appears well-developed, well-nourished and well-groomed, Communication/Voice: communication appropriate for developmental age; vocal quality normal; Assessment/Plan Diagnoses and all orders for this visit: JED (obstructive sleep apnea) Hypothyroidism (acquired) (CMS/HCC) Pt clearly needs a new sleep study and CPAP. Since she clearly needs tx, I will have her see Dr Hurd for eval Once we get TFTs I will call pt. documented in this encounter [facility] 09-30-2024 Telephone encounter Note Pt is scheduled with Dr Chacon 10/01/2024. [facility] 09-30-2024 Miscellaneous Notes Pt is scheduled with Dr Chacon 10/01/2024. Tried to call pt to schedule a follow up appt for labs, unable to leave a message. documented in this encounter [facility] 09-26-2024 Telephone encounter Note Tried to call pt to schedule a follow up appt for labs, unable to leave a message. [facility] 09-03-2024 Note Cardiovascular Medic [facility] SUBJECTIVE Chief Complaint Patient presents with Congestive Heart Failure Atrial Fibrillation Hypertension Joe Call is a 79 y.o. female here for follow-up. HPI PMHx: HFpEF, PAF, DMII, CKD III, HTN, hypothyroidism, mild carotid stenosis, breast CA s/p chemo/radiation +25years ago There is some confusion regarding her diuretic as there has been a lot of changes between lasix and bumex in the past few months. Patient here for follow up [facility]. 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 Her most recent discharge on 07/25/24 she [...] chest when laying down in the evening. 09/03/2024 She is feeling better since last seen. At her last visit we resumed lisinopril. We also increased lasix to BID given she was fluid overloaded on exam. She is down 3# in 2 weeks. No more hoarseness in her voice and no more rattling in her chest. She thinks she drinks about 2L or less of day. Her blood sugars have been running on the higher side. 200s. Last night it alarmed at 360. Advised she reach out to her PCP about her blood sugars. Patient Active Problem List Diagnosis Aortic valve [...] Hordeolum externum (stye) Immunization due Lactose intolerance halfway (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 insulin ([facility]/HCC) Lumbar degenerative disc disease Lumbar spondylosis Lymph edema Macular degeneration Memory changes Osteoarthritis Secondary hyperparathyroidism (CMS/HCC) Stress incontinence of urine Thrush of mouth and esophagus (CMS/HCC) Urinary incontinence UTI (urinary tract infection) Yeast cystitis CARMELO (acute kidney injury) (CMS/HCC) Tremor Acquired hammer toe of right foot Ataxia Balance disorder CHF (congestive heart failure) (CMS/HCC) Dehydration Diabetic foot ([facility]/HCC) Diabetic peripheral neuropathy associated with type 2 diabetes mellitus ([facility]/HCC) Disability of walking Essential tremor LPRD (laryngopharyngeal reflux disease) Mass of right axilla Paresthesia Throat tightness Type 2 diabetes mellitus with hyperglycemia, with long-term current use of insulin ([facility]) Venous insufficiency (chronic) (peripheral) Debility Past Medical History: Diagnosis Date Atrial fibrillation (CMS/HCC) Cancer ([facility]) Carotid artery stenosis Coronary artery disease Diabetes mellitus ([facility]) GERD (gastroesophageal reflux disease) Hypertension Sleep apnea Family History Problem Relation Name Age of Onset Coronary artery disease Other Diabetes Other Polycystic kidney disease Other Social History Tobacco Use Smoking status: Former Types: Ci (more content not included)... [facility] 09-03-2024 Note Patient here for 2 w jamul follow up. Had echo last week and labs drawn this afternoon. Says she's feeling better. Still denies chest pain, palpitations, and bleeding on Xarelto. Review of Systems Cardiovascular: Positive for leg swelling (feet). Respiratory: Positive for shortness of breath. Musculoskeletal: Positive for muscle weakness. Neurological: Positive for tremors. All other systems reviewed and are negative. [facility] 08-20-2024 Note Cardiovascular Medic [facility] SUBJECTIVE Chief Complaint Patient presents with [...] few months. Patient here for follow up [facility]. 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 Her most recent discharge on 07/25/24 she [...] Hordeolum externum (stye) Immunization due Lactose intolerance halfway (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 insulin ([facility]/HCC) Lumbar degenerative disc disease Lumbar spondylosis Lymph edema Macular degeneration Memory changes Osteoarthritis Secondary hyperparathyroidism ([facility]/HCC) Stress incontinence of urine Thrush of mouth and esophagus ([facility]/HCC) Urinary incontinence UTI (urinary tract infection) Yeast cystitis CARMELO (acute kidney injury) ([facility]) Tremor Acquired hammer toe of right foot Ataxia Balance disorder CHF (congestive heart failure) ([facility]) Dehydration Diabetic foot ([facility]) Diabetic peripheral neuropathy associated with type 2 diabetes mellitus ([facility]) Disability of walking Essential tremor LPRD (laryngopharyngeal reflux disease) Mass of right axilla Paresthesia Throat tightness Type 2 diabetes mellitus with hyperglycemia, with long-term current use of insulin ([facility]) Venous insufficiency (chronic) (peripheral) Debility Past Medical History: Diagnosis Date Atrial fibrillation ([facility]) Cancer ([facility]) Carotid artery stenosis Coronary artery disease Diabetes mellitus ([facility]) GERD (gastroesophageal reflux disease) Hypertension Sleep apnea [...] other systems reviewed (more content not included)... [facility] 08-20-2024 Note Patient here for [facility]. Her diuretic was switched [...] All other systems reviewed and are negative. [facility] 06-18-2024 Note MA Cardiology - [facility] Subjective Joe Call is a 78 y.o. year old female patient being seen for 1 mo follow up acute on chronic diastolic heart failure, CAD, and CARMELO. She's presented to [facility] ED several times over the past [...] Hordeolum externum (stye) Immunization due Lactose intolerance halfway (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 insulin (CMS/HCC) Lumbar degenerative [...] prior cardiac catheterizations. She has history of NE in the past and underwent balloon angioplasty (many years ago, prior to the stent era). 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 In December 2022 she was admitted to the [facility] with decompensated diastolic heart failure, she was treated with diuretic therapy. In February 2023 she was admitted to [facility] with dehydration secondary to acute gastroenteritis. She also had acute kidney injury in that setting. She has history of breast cancer more than 25 years ago s/p mastectomy, chemo and radiation therapy. She has lymphedema in the left arm. In the past she saw a apprenticeship training representative for bleeding behind the eye . [...] April 2024 she was admitted to the [facility] with increasing weakness and altered mental status. She also had acute renal insufficiency. She had UTI secondary to E. coli. She was admitted again to the [facility] on 06/09/2020 for with acute [...] She is well-develo (more content not included)... [facility] 05-20-2024 Note BMP today to assess renal function and electrolytes [facility] 05-20-2024 Note Heart failure is unc hanged. NYHA Class II. Continue current treatment regimen. Dietary sodium restriction. Encouraged daily monitoring of the patient's weight. Continue current medications. Heart failure will be reassessed in 1 month. BMP to assess renal function and electrolytes today to see if can uptitrate GDMT- in light Lasix, lisinopril and aldactone on hold from recent hospitalization [facility] 05-20-2024 Note Coronary artery dise ase is unchanged. Continue current medications. Continue GDMT- lipitor, metoprolol continue risk factor modifications- heart healthy diet, regular exercise as tolerated and continue all medications. [facility] 05-20-2024 Note Lipid abnormalities are unchanged. Pharmacotherapy as ordered. Continue lipitor [facility] 05-20-2024 Note UTP CARDIOLOGY PROGR ESS NOTE HPI: Joe Call is a 78 y.o. female here for hospital F/U HPI: Patient here for follow up [facility] for renal failure. She was also discharged back in March 2024 for CHF. Lisinopril, spironolactone, and furosemide were stopped during one of the admissions. She denies chest pain, SOB, and LE edema. Denies lightheadedness, syncope, and bleeding on Xarelto. Feels much better s/p hospital stay. Palpitations are no more than usual for her. She will be seeing her fire management technician (Dr. Rapp) on 06/05/2024. Currently weight is [...] per week. Previous HPI per Dr Rosaura Parikh is seen in follow up and [...] prior cardiac catheterizations. She has history of NE in the past and underwent balloon angioplasty (many years ago, prior to the stent era). 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 In December 2022 she was admitted to the [facility] with decompensated diastolic heart failure, she was treated with diuretic therapy. In February 2023 she was admitted to [facility] with dehydration secondary to acute gastroenteritis. She also had acute kidney injury in that setting. She has history of breast cancer more than 25 years ago s/p mastectomy, chemo and radiation therapy. She has lymphedema in the left arm. In the past she saw a apprenticeship training representative for bleeding behind the eye . [...] 2.3 m??? Allergie (more content not included)... [facility] 05-20-2024 Note Patient here for [facility] for renal failure. She was also discharged back in March 2024 for CHF. Lisinopril, spironolactone, and furosemide were stopped during one of the admissions. She denies chest pain, SOB, and LE edema. Denies lightheadedness, syncope, and bleeding on Xarelto. Feels much better s/p hospital stay. Palpitations are no more than usual for her. She will be seeing her fire management technician (Dr. Rapp) on 06/05/2024. Review of Systems Cardiovascular: Positive for palpitations. Musculoskeletal: Positive for muscle weakness. All other systems reviewed and are negative. [facility] 03-07-2024 Note MA Cardiology - [facility] Subjective Joe G Bassem is a 78 y.o. year old [...] prior cardiac catheterizations. She has history of NE in the past and underwent balloon angioplasty (many years ago, prior to the stent era). 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 In December 2022 she was admitted to the [facility] with decompensated diastolic heart failure, she was treated with diuretic therapy. In February 2023 she was admitted to [facility] with dehydration secondary to acute gastroenteritis. She also had acute kidney injury in that setting. She has history of breast cancer more than 25 years ago s/p mastectomy, chemo and radiation therapy. She has lymphedema in the left arm. In the past she saw a apprenticeship training representative for bleeding behind the eye . [...] TIMES DAILY NEEDED (more content not included)... [facility] 02-15-2024 Hospital Discharge instructions Ambulatory OrdersReferral to Urology Time Frame: 02/15/24, Location: None Selected [facility] Work Phone: 11-19-2023 Evaluation note Encounter Date Diagnosis Assessment Notes Nov, Lumbar degenerative disc disease (ICD-10 - M51.36) [facility] Other [id number] Evaluation note* Encounter Date Diagnosis Assessment Notes [...] will check vitamin B12 level next visit [facility] Other 12-11-2023 Evaluation note* Encounter Date Diagnosis Assessment Notes Treatment Notes Treatment Clinical Notes Oct, Lumbar degenerative disc disease (ICD-10 - M51.36) [facility] Other 12-07-2023 Evaluation note* Encounter Date Diagnosis Assessment Notes Treatment Notes Treatment Clinical Notes Oct, Bronchitis (ICD-10 - J40) Finish meds. No acute need for antibiotic at this time Oct, Diabetes mellitus with chronic kidney disease (ICD-10 - E11.22) Due for labs, followup w Dr. Mcconnell Oct, Lumbar degenerative disc disease (ICD-10 - M51.36) Pt will contact neurosurgery. [facility] Other 10-27-2023 Evaluation note* Encounter Date Diagnosis Assessment Notes Treatment Notes Treatment Clinical Notes Aug, Chronic kidney disease, stage 4 (severe) (ICD-10 - N18.4) [facility] Other 10-24-2023 Evaluation note* Encounter Date Diagnosis [...] (ICD-10 - M51.36) Pt requests referral to [facility]. Reviewed OARRS report. Aug, Stress incontinence of urine (ICD-10 - N39.3) R/o infection. Discussed could be related to her diabetes med as well. [facility] Other 10-12-2023 Evaluation note* Encounter Date Diagnosis Assessment Notes Treatment Notes Treatment Clinical Notes Aug, Lumbar degenerative disc disease (ICD-10 - M51.36) [facility] Other 09-11-2023 Evaluation note* Encounter Date Diagnosis Assessment Notes Treatment Notes Treatment Clinical Notes Jul, Lumbar degenerative disc disease (ICD-10 - M51.36) [facility] Other 09-05-2023 Evaluation note* Encounter Date Diagnosis [...] refill. Oarrs reviewed. No med changes needed. [facility] Other 07-05-2023 Evaluation note* Encounter Date Diagnosis Assessment Notes Treatment Notes Treatment Clinical Notes May, C. difficile colitis (ICD-10 - A04.72) [facility] Other 06-19-2023 Evaluation note* Encounter Date Diagnosis Assessment Notes Treatment Notes Treatment Clinical Notes Apr, Skin candidiasis (ICD-10 - B37.2) Discussed this is related to her hyperglycemia. Will treat w nystatin, but needs improvement in diet and glucose readings. Apr, Type 2 diabetes mellitus with hyperglycemia, unspecified whether nursing home insulin use (ICD-10 - E11.65) Pt agrees to see Dr Mcconnell again. Recently sent to ER for glucose of 608. Apr, Tremor of both hands (ICD-10 - R25.1) Referral to Dr. Lopez Apr, Memory changes (ICD- 10 - R41.3) Referral to Dr. Lopez Apr, Gastroesophageal reflux disease without esophagitis (ICD-10 - K21.9) Improved on carafate w PPI. [facility] Other 06-01-2023 Evaluation note* Encounter Date Diagnosis Assessment Notes Treatment Notes Treatment Clinical Notes Apr, Gastroesophageal ref lux disease without esophagitis (ICD-10 - K21.9) [facility] Other 04-28-2023 Evaluation note* Encounter Date Diagnosis [...] get lab ordered on 02/20 today Feb, halfway (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 insulin (ICD-10 - Z79.4) [facility] Other 04-26-2023 Evaluation note* Encounter Date Diagnosis Assessment Notes Treatment Notes Treatment Clinical Notes Feb, C. difficile colitis (ICD-10 - A04.72) [facility] Other 04-17-2023 Evaluation note* Encounter Date Diagnosis Assessment Notes Treatment Notes Treatment Clinical Notes Feb, Gastroesophageal ref lux disease without esophagitis (ICD-10 - K21.9) [facility] Other 04-14-2023 Evaluation note* Encounter Date Diagnosis Assessment Notes Treatment Notes Treatment Clinical Notes Feb, Chronic diarrhea (ICD-10 - K52.9) [facility] Other 04-11-2023 Evaluation note* Encounter Date Diagnosis [...] it really overall has not been helpful. [facility] Other 01-13-2023 Evaluation note* Encounter Date Diagnosis Assessment Notes Treatment Notes Treatment Clinical Notes Nov, Type 2 diabetes mellitus with hyperglycemia, unspecified whether nursing home insulin use (ICD-10 - E11.65) [facility] Other 10-14-2021 Evaluation note* Encounter Date Diagnosis [...] training 6. Follow up in 3 months. [facility] Other Evaluation + Plan note No data available for this section General Surgery [facility] Evaluation noteNo InformationNort [employer] Other Evaluation noteNort [employer] Other Evaluation noteNort [employer] Other Evaluation note* Diagnosis Onset Date Resolution Status Chalazion of right eye acute Immunization due acute Urinary incontinence acute [facility] Work Phone: Evaluation note* Diagnosis Onset Date Resolution Status Chalazion of right eye acute Immunization due acute Urinary incontinence acute Diabetes mellitus with hyperglycemia acute Hypertension acute Hypothyroidism acute Lumbar spondylosis acute Secondary hyperparathyroidism acute [facility] Work Phone: Evaluation note* Diagnosis [...] acute Thrush of mouth and esophagus acute [facility] Work Phone: evaluation note* Diagnosis Onset Date Resolution Status Diabetes [...] IV acute UTI (urinary tract infection) acute [facility] Work Phone: Evaluation note* Diagnosis [...] acute Thrush of mouth and esophagus acute [id number] acute Secondary hyperparathyroidism acute [facility] Work Phone: Evaluation note* Diagnosis Onset [...] acute Thrush of mouth and esophagus acute [id number] acute CKD (chronic kidney disease) stage 3, GFR 30-59 ml/min acute Hyperlipidemia acute [id number] acute Secondary hyperparathyroidism acute Type 2 diabetes mellitus wit h diabetic chronic kidney disease acute Tremor acute [facility] Work Phone: Evaluation note* Diagnosis [...] acute Thrush of mouth and esophagus acute [id number] acute CKD (chronic kidney disease) stage 3, GFR 30-59 ml/min acute Hyperlipidemia acute [id number] acute Secondary hyperparathyroidism acute Type 2 diabetes mellitus wit h diabetic chronic kidney disease acute Acute on chronic diastolic C HF (congestive heart failure) acute [id number] acute Tremor acute [id number] acute [facility] Work Phone: Evaluation note* Diagnosis Onset [...] acute Thrush of mouth and esophagus acute [id number] acute CKD (chronic kidney disease) stage 3, GFR 30-59 ml/min acute Hyperlipidemia acute [id number] acute Secondary hyperparathyroidism acute Type 2 diabetes mellitus wit h diabetic chronic kidney disease acute Acute on chronic diastolic C HF (congestive heart failure) acute [id number] acute Tremor acute [id number] acute Mass of right axilla acute [facility] Work Phone: Evaluation note* Diagnosis [...] acute Thrush of mouth and esophagus acute [id number] acute CKD (chronic kidney disease) stage 3, GFR 30-59 ml/min acute Hyperlipidemia acute [id number] acute Secondary hyperparathyroidism acute Type 2 diabetes mellitus wit h diabetic chronic kidney disease acute Acute on chronic diastolic C HF (congestive heart failure) acute [id number] acute Tremor acute [id number] acute Mass of right axilla acute CHF (congestive heart failure) acute Dehydration acute [id number] acute [id number] acute [facility] Work Phone: Evaluation note* Diagnosis [...] acute Thrush of mouth and esophagus acute [id number] acute CKD (chronic kidney disease) stage 3, GFR 30-59 ml/min acute Hyperlipidemia acute [id number] acute Secondary hyperparathyroidism acute Type 2 diabetes mellitus wit h diabetic chronic kidney disease acute Acute on chronic diastolic C HF (congestive heart failure) acute [id number] acute Tremor acute [id number]-[id number] acute Back pain with history of spinal surgery acute Cervical disc disease acute CKD (chronic kidney disease), stage IV acute Mass of right axilla acute CHF (congestive heart failure) acute Dehydration acute [id number] acute [id number]-[id number] acute Dysuria acute [facility] Work Phone: Evaluation note* Diagnosis Onset Date Resolution Status Lumbar degenerative disc disease acute Thrush of mouth and esophagus acute [id number] acute CKD (chronic kidney disease) stage 3, GFR 30-59 ml/min acute Hyperlipidemia acute [id number] acute Secondary hyperparathyroidism acute Type 2 diabetes mellitus wit h diabetic chronic kidney disease acute Acute on chronic diastolic C HF (congestive heart failure) acute [id number] acute Tremor acute [id number]-[id number] acute Back pain with history of spinal surgery acute Cervical disc disease acute CKD (chronic kidney disease), stage IV acute Mass of right axilla acute CHF (congestive heart failure) acute Dehydration acute [id number] acute [id number] acute Dysuria acute [facility] Work Phone: Evaluation note* Diagnosis JED (obstructive sleep apnea)- Primary Obstructive sleep apnea (adult) (pediatric) Hypothyroidism (acquired) ([facility]) Unspecified hypothyroidism documented in this encounter [facility] N[facility]ative - Reported* Type Description Date [...] History COLONOSCOPY 04/10/2019 Hospitalization History See above [facility] Other [facility] general Narrative - Reported* Type Description Date [...] History COLONOSCOPY 04/10/2019 Hospitalization History See above [facility] Other [place] [facility] general Narrative - ReportedTivity Other [place] [facility] general Narrative - ReportedNoRedux Other history general Narrative - Reported* Type [...] GERD 2022 Hospitalization History DIABETES ISSUES 2022 [facility] Other Hospital Discharge instructions No data available for this section General Surgery [facility] Discharge instructionsAmbulatory Orders* Referral to Neurology Time Frame: 06/16/24, Location: None [facility] Work Phone: Hospital Discharge instructionsAmbulatory Orders* Referral to ENT Time Frame: 06/25/24, Location: None [facility] Work Phone: Progress note No data available for this section General Surgery [facility] Summary Purpose Family History No Family History [...] se, stage 4 (severe) (N18.4) Referral Organization [facility]ene Referring Provider First Name Shantel Referring Provider Last Name Tenisha Referring Provider Specialty [facility] Referred Organization [facility] Nephrology Referred Provider Cherie Rapp [place] Address [address] [place],[address] Referred Provider Specialty Nephrology Referral Priority Routine General Notes Mariela Kingston 11:35:41 AM >received today, sent P2P Reason *FU 09/13 lumbar p ain Diagnosis 1 Lumbar degenerative disc disease (M51.36) Referral Organization [facility] Referring Provider First Name Shantel Referring Provider Last Name Tenisha Referring Provider Specialty [facility] Referred Organization [facility] Referred Provider Terell Soliz Referred Address [address], [place],[address] Referred Provider Specialty Pain Medicin e Referral Priority Routine General Notes Vashti Mariela 03:09:25 PM >received today, waiting for notes to be locked Vashti Mariela 09/06/2023 10:08:29 AM >notes locked, referral faxed Clinical Notes F: [id number] Reason Poorly controlled di abetes Diagnosis 1 Type 2 diabetes maranda itus with hyperglycemia, unspecified whether nursing home insulin use (E11.65) Referral Organization [facility] [employer] [facility]ene Referring Provider First Name Shantel Referring Provider Last Name Tenisha Referring Provider Specialty [facility] DNage Referred Organization Unknown Facility Referred Provider Joshua Mcconnell Referred Provider Specialty Internal Med icine Referral Priority Routine Reason tremor and memory lo ss - family history of dementia Diagnosis 1 Tremor of both hands (R25.1) Referral Organization [facility] [employer] [facility]ene Referring Provider First Name Shantel Referring Provider Last Name Tenisha Referring Provider Specialty [facility] Referred Organization Unknown Facility Referred Provider Emery [...] disc disease Thrush of mouth and esophagus [id number] Secondary hyperparathyroidism Chief Complaint medication review Amb [...] disc disease Thrush of mouth and esophagus [id number] CKD (chronic kidney disease) stage 3, GFR 30-59 ml/min Hyperlipidemia [id number] Secondary hyperparathyroidism Type 2 diabetes mellitus with [...] disc disease Thrush of mouth and esophagus [id number]-[id number] CKD (chronic kidney disease) stage 3, GFR 30-59 ml/min Hyperlipidemia [id number]-[id number] 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 Acute on chronic diastolic CHF (congestive heart failure) [id number]-[id number] Tremor [id number] Chief Complaint difficulty swallowin g Amb Documentation [...] disc disease Thrush of mouth and esophagus [id number] CKD (chronic kidney disease) stage 3, GFR 30-59 ml/min Hyperlipidemia [id number] 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 Acute on chronic diastolic CHF (congestive heart failure) [id number] Tremor [id number] Mass of right axilla Chief Complaint difficulty [...] disc disease Thrush of mouth and esophagus [id number]-[id number] CKD (chronic kidney disease) stage 3, GFR 30-59 ml/min Hyperlipidemia [id number]-[id number] 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 Acute on chronic diastolic CHF (congestive heart failure) [id number] Tremor [id number] Mass of right axilla Chief Complaint difficulty [...] disc disease Thrush of mouth and esophagus [id number] CKD (chronic kidney disease) stage 3, GFR 30-59 ml/min Hyperlipidemia [id number] 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 Acute on chronic diastolic CHF (congestive heart failure) [id number] Tremor [id number] Mass of right axilla CHF (congestive heart failure) Dehydration [id number] Chief Complaint difficulty swallowin g Amb Documentation [...] disc disease Thrush of mouth and esophagus [id number] CKD (chronic kidney disease) stage 3, GFR 30-59 ml/min Hyperlipidemia [id number] 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 Acute on chronic diastolic CHF (congestive heart failure) [id number]-77794084 Tremor SKG-[id number] Back pain with history of spinal surgery Cervical disc disease CKD (chronic kidney disease), stage IV Mass of right axilla CHF (congestive heart failure) Dehydration [id number]-[id number]-[id number] Dysuria Chief Complaint throat problem SOB RENAL CKD 4 [facility] follow up 3 month f/u Kidney injury, high BP R30.0 UA Amb Documentation [facility] f/u:Pulmonary Adema Reason for Visit Lumbar degenerative disc disease Thrush of mouth and esophagus [id number]-[id number] CKD (chronic kidney disease) stage 3, GFR 30-59 ml/min Hyperlipidemia [id number] 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 Acute on chronic diastolic CHF (congestive heart failure) [id number]-[id number] Tremor URT-SCCI-[id number] Back pain with history of spinal surgery Cervical disc disease CKD (chronic kidney disease), stage IV Mass of right axilla CHF (congestive heart failure) Dehydration [id number]-[id number] Dysuria Additional Source Comments INFORMATION SOURCE (unrecogn ized section and content) DATE CREATED AUTHOR 05/10/2018 [facility] DATE CREATED AUTHOR AUTHOR'S ORGANIZ ATION 03/10/2023 [facility] DATE CREATED AUTHOR AUTHOR'S ORGANIZ ATION 10/04/2024 [facility] EPIC DATE CREATED AUTHOR AUTHOR'S ORGANIZ ATION 10/11/2024 [facility] DATE CREATED AUTHOR AUTHOR'S ORGANIZ ATION 10/23/2024 [facility] DATE CREATED AUTHOR AUTHOR'S ORGANIZ ATION 10/25/2024 [facility] REASON FOR VISIT (unrecogniz ed section and content) Reason Comments Sleep Apnea Care Team (unrecognized sect ion and content) [...] May 22, 2024 End: May 22, 2024 Jorge Luis Zavala DO Emergency Provider Active St art: May [...] End: January 18, 2024 Franchesca Sullivan APRN SECURITY PROGRAM MANAGER-C Attending Provider Act chiqui Start: January 18, [...] 15, 2024 End: July 15, 2024 Carl Moralse MD Referring Provider Active Sta rt: July [...] August 07, 2024 End: August 07, 2024 Sprinkling System Installer Relationship Specialty Start Date End Date Shantel Steven MD [address] [place] [address] PCP - General Family Medicine 06/25/24 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 [facility] [employer] [facility]. provides no warranty or guarantee of the accuracy or completeness of information in this document.
[2024-10-25 22:37] VITALS: BP 131/65; PULSE 95; TEMP 36.6; O2SAT 95; BMI 45.1
--- NOTE | 2024-10-25 22:49 | PC.NURSE ---
Patient c/o burning and pain from chiang catheter. On assessment, patient's chiang tubing was kinked off and was not flowing. This issue was fixed and patient began to feel relief immediately. She is currently on Keflex for UTI that she was discharged from [facility] with
--- NOTE | 2024-10-26 01:40 | ED_ITS ---
HPI - Female Genitourinary General Chief complaint: Urogenital-Female Stated complaint: URINARY CATH COMP Time Seen by Provider: 10/25/24 22:46 Source: patient Mode of arrival: Wheelchair Limitations: no limitations History of Present Illness HPI Narrative: The patient is coming to the ER with a recent history of placement of a Peacock catheter after she was admitted to [facility] for management in the ICU. The kulwant ent is coming to us after she was driving around and she noticed she having suprapubic pain upon arrival to the triage the patient was noted to have a kinked Peacock catheter tubing and when corrected the patient started having almost 800 cc of urine drained The patient have no complaint upon my arrival to the bedside for evaluation Related Data Home Medications ?Medication ?Instructions ?Recorded ?Confirmed insulin glargine 100 unit/mL (3 20 unit subcut BEDTIME 04/25/23 07/29/24 mL) subcutaneous pen (Lantus Solostar U-100 Insulin) metoprolol tartrate 100 mg tablet 150 mg PO BID 04/25/23 07/29/24 alprazolam 0.25 mg tablet 0.25 mg PO TID PRN anxiety 04/30/24 07/29/24 levothyroxine 125 mcg tablet 125 mcg PO .acb 04/30/24 07/29/24 oxycodone-acetaminophen 5 mg-325 1 tab PO DAILY PRN pain 04/30/24 07/29/24 mg tablet insulin NPH isoph U-100 human 100 1 unit subcut ACHS 06/09/24 07/29/24 unit/mL (3 mL) subcutaneous pen (Novolin N FlexPen) atorvastatin 20 mg tablet 20 mg PO QPM 06/18/24 07/29/24 biotin 10,000 mcg disintegrating 10,000 mcg PO DAILY 06/18/24 07/29/24 tablet cholecalciferol (vitamin D3) 125 125 mcg PO DAILY 06/18/24 07/29/24 mcg (5,000 unit) tablet (Vitamin D3) lisinopril 10 mg tablet 10 mg PO DAILY 06/18/24 07/29/24 rivaroxaban 20 mg tablet (Xarelto) 20 mg PO DAILY 06/18/24 07/29/24 vit C 226 mg-vit E 90 mg-copper 1 cap PO BID 08/07/24 09/17/24 0.8 mg-zinc oxide-lutein 5 mg capsule (PreserVision Lutein) diltiazem HCl 120 mg 120 mg PO .QD 07/14/24 07/29/24 capsule,extended release 24 hr famotidine 20 mg tablet 20 mg PO .qhs 07/24/24 07/29/24 omeprazole 40 mg capsule,delayed 40 mg PO .acb 07/24/24 07/29/24 release Previous Rx's ?Medication ?Instructions ?Recorded furosemide 40 mg tablet (Lasix) 40 mg PO DAILY #30 tabs 07/25/24 spironolactone 25 mg tablet 25 mg PO DAILY #30 tabs 07/25/24 (Aldactone) Allergies Allergy/AdvReac Type Severity Reaction Status Date / Time Iodinated Contrast Media Allergy Intermediate Hives Verified 10/25/24 22:42 shellfish derived Allergy Intermediate Hives Verified 10/25/24 22:42 Sulfa (Sulfonamide Allergy Rash Verified 10/25/24 22:42 Antibiotics) Review of Systems ROS Status of ROS 10 or more systems reviewed and unremark able except as noted in history and below [facility] Medical History (Updated 10/25/24 @ 22:55 by Nikky Silverman MD) Intermittent palpitations ?R00.2 - Palpitations (ICD-10) Acute hyperglycemia ?R73.9 - Hyperglycemia, unspecified (ICD-10) Acute kidney injury ?N17.9 - Acute kidney failure, unspecified (ICD-10) Uncontrolled diabetes mellitus Acute on chronic clinical systolic heart failure ?I50.23 - Acute on chronic systolic (congestive) heart failure (ICD-10) Acute renal failure ?N17.9 - Acute kidney failure, unspecified (ICD-10) Hyperkalemia ?E87.5 - Hyperkalemia (ICD-10) Acute dehydration ?E86.0 - Dehydration (ICD-10) CKD stage 3a, GFR 45-59 ml/min ?N18.31 - Chronic kidney disease, stage 3a (ICD-10) Diabetes mellitus with hyperglycemia, with long-term current use of insulin ?E11.65 - Type 2 diabetes mellitus with hyperglycemia (ICD-10) ?Z79.4 - watermelon inspector (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9 - Obesity, unspecified (ICD-10) Surgical History History of cholecystectomy ?Z90.49 - Acquired absence of other specified parts of digestive tract (ICD- 10) History of appendectomy ?Z90.49 - Acquired absence of other specified parts of digestive tract (ICD- 10) History of hysterectomy ?Z90.710 - Acquired absence of both cervix and uterus (ICD-10) H/O lumbosacral spine surgery ?Z98.890 - Other specified postprocedural states (ICD-10) H/O bilateral mastectomy ?Z90.13 - Acquired absence of bilateral breasts and nipples (ICD-10) Family History Other Family history of CHF (congestive heart failure) Family history of cancer Family history of diabetes mellitus Family history of hypertension H/O mastectomy Social History Within the past year, how often did you have a drink containing alcohol: never Within the past year, how often did you have six or more drinks on one occasion: never Score interpretation: A score less than 3 is consistent with normal alcohol consumption. 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 Highest level of school completed/degree received: some college, no degree Do you want help with school or training: No Are you now , , , , never or living with a partner: In a typical week, how many times do you talk on the telephone with family, friends, or neighbors: twice per week How often do you get together with friends or relatives: twice per week How often do you attend hinduism or evangelical services: never Do you belong to any clubs or organizations such as hinduism groups unions, fraternal or athletic groups, or school groups: no Total score: 2 Score interpretation: A score of greater than or equal to 2 indicates the lowest level of social isolation. Little interest or pleasure in doing things: not at all Feeling down, depressed, or hopeless: not at all Feel stressed/tense/nervous/anxious/difficulty sleeping: not at all Due to disability, difficulty making decisions: No Do you think of yourself as: straight/heterosexual Gender Identity: female Exam Narrative Exam Narrative: Nurses notes and vital signs reviewed and patient is not hypoxic. General: Well-appearing and in no apparent distress. Skin: Warm, dry, no pallor noted. No rash. Head: Normocephalic, atraumatic. Neck: Supple, non-tender. Eye: Pupils are equal, round and EOMI. No scleral icterus. Ears, Nose, Mouth, and Throat: TM are clear, no nasal mucosal hypertrophy. Oral mucosa is moist, no posterior oropharynx erythema, uvula is mid-line Cardiovascular: Regular Rate and Rhythm without murmur, gallop or rub. Respiratory: No accessory muscle use or respiratory distress. Lungs are clear to auscultation, no wheezing, rales or rhonchi Chest Wall: no tenderness Back: No midline thoracic or lumbar vertebral tenderness. No CVA tenderness Musculoskeletal: normal ROM, no calf or popliteal tenderness, no lower extremity edema/swelling GI: Abdomen is soft, non-distended. Normal bowel sounds. No masses appreciated. No tenderness to palpation. No rebound, guarding, or rigidity noted. Peacock catheter in place Neurological: A&O x4. No cranial nerve dysfunction observed. No truncal ataxia. Moves all extremities. Sensation intact. Psychiatric: Cooperative and interactive. Normal mood and affect. Constitutional Vital Signs, click to edit/add: Last Vital Signs Temp 97.9 F 10/25/24 22:37 Pulse 95 H 10/25/24 22:37 Resp 18 10/25/24 22:37 BP 131/65 10/25/24 22:37 Pulse Ox 95 10/25/24 22:37 O2 Del Method Room Air 10/25/24 22:37 Course Vital Signs Vital signs: Vital Signs Temperature 97.9 F 10/25/24 22:37 Pulse Rate 95 H 10/25/24 22:37 Respiratory Rate 18 10/25/24 22:37 Blood Pressure 131/65 10/25/24 22:37 Pulse Oximetry 95 10/25/24 22:37 Oxygen Delivery Method Room Air 10/25/24 22:37 Temperature 97.9 F 10/25/24 22:37 Pulse Rate 95 H 10/25/24 22:37 Respiratory Rate 18 10/25/24 22:37 Blood Pressure 131/65 10/25/24 22:37 Pulse Oximetry 95 10/25/24 22:37 Oxygen Delivery Method Room Air 10/25/24 22:37 MDM - Female Genitourinary MDM Narrative Medical decision making narrative: The patient right now already had the kink in the catheter corrected she was instructed about the proper care of her catheter She does not have any complain at the moment The patient is to follow up with primary care physician in next 2-3 days or to return to the emergency department should any of the signs or symptoms worsen or new symptoms develop. The patient agrees with the following Diagnosis and Treatment plan and the patient will be discharged home. Discharge Plan Discharge Chief Complaint: Urogenital-Female Clinical Impression: Peacock catheter in place Patient Disposition: Home, Self-Care Time of Disposition Decision: 22:54 Condition: Good Prescriptions / Home Meds: No Action insulin glargine [Lantus Solostar U-100 Insulin] 100 unit/mL (3 mL) insulin pen 20 unit SUBCUT BEDTIME metoprolol tartrate 100 mg tablet 150 mg PO BID levothyroxine 125 mcg tablet 125 mcg PO .acb alprazolam 0.25 mg tablet 0.25 mg PO TID PRN (Reason: anxiety) Patient Comments: 0.25mg PO TID PRN for anxiety oxycodone-acetaminophen 5-325 mg tablet 1 tab PO DAILY PRN (Reason: pain) diltiazem HCl 120 mg capsule,extended release 24hr 120 mg PO .QD Xarelto 20 mg tablet 20 mg PO DAILY Rx Instructions: must administer with evening meal PreserVision Lutein 226-90-0.8-5 mg capsule 1 cap PO BID atorvastatin 20 mg tablet 20 mg PO QPM cholecalciferol (vitamin D3) [Vitamin D3] 125 mcg (5,000 unit) tablet 125 mcg PO DAILY biotin 10,000 mcg tablet,disintegrating 10,000 mcg PO DAILY lisinopril 10 mg tablet 10 mg PO DAILY Novolin N FlexPen 100 unit/mL (3 mL) insulin pen 1 unit SUBCUT ACHS Patient Comments: (if BLOOD SUGAR is BETWEEN 150-199 INJECT 3 (THREE) UNITS, if BETWEEN 200-249 INJECT FOUR UNITS, if BETWEEN 250-299 INJECT 7 (SEVEN) UNITS, if BETWEEN 300-349 INJECT TEN UNITS, if BETWEEN 350-399 INJECT 12 UNITS, if 400 or great INJECT 14 UNITS) Rx Instructions: SLIDING SCALE famotidine 20 mg tablet 20 mg PO .qhs omeprazole 40 mg capsule,delayed release(DR/EC) 40 mg PO .acb furosemide [Lasix] 40 mg tablet 40 mg PO DAILY Qty: 30 0RF spironolactone [Aldactone] 25 mg tablet 25 mg PO DAILY Qty: 30 0RF Print Language: Burundian Instructions: Peacock Catheter Placement and Care (ED) Referrals: Theodora Cuevas MD [Primary Care Provider] - 1 week Discharge Date/Time: 10/25/24 23:08
== END 2024-10-25 23:08 | disposition home or self-care (01) ==
PROVIDERS: Emergency Provider Emergency Medicine; PCP Family Medicine
DX: T83.098A Other mechanical complication of other urinary catheter, initial encounter (principal); Z90.49 Acquired absence of other specified parts of digestive tract; Z90.710 Acquired absence of both cervix and uterus; Z90.13 Acquired absence of bilateral breasts and nipples
CPT/HCPCS: 99281

== ENCOUNTER 2024-11-03 09:38 | Outpatient (OUT) | payer MEDICARE, SELFPAY ==
[2024-11-03 11:04] LABS: Anion Gap 16.6; BUN Creatinine Ratio 18.3; Calcium 8.8 mg/dL (8.5-10.1); Carbon Dioxide 23.1 mmol/L (21.0-32.0); Chloride 99 mmol/L (98-107); Estimated GFR (African America 32 (>=60 mL/min/1.73m^2); Estimated GFR (Non-African Ame 26 (>=60 mL/min/1.73m^2); Glucose 367 mg/dL (74-106); Potassium 4.7 mmol/L (3.5-5.1); Sodium 134 mmol/L (136-145)
== END 2024-11-03 09:39 | disposition home or self-care (01) ==
PROVIDERS: PCP Family Medicine; Visit Provider Internal Medicine Cardiovascular Disease
DX: I50.32 Chronic diastolic (congestive) heart failure (principal)
CPT/HCPCS: 36415; 80048

== ENCOUNTER 2024-11-10 15:39 | Outpatient (OUT) | payer MEDICARE, SELFPAY ==
[2024-11-10 16:17] LABS: Anion Gap 15.3; Calcium 8.5 mg/dL (8.5-10.1); Carbon Dioxide 26.2 mmol/L (21.0-32.0); Chloride 99 mmol/L (98-107); Estimated GFR (African America 29 (>=60 mL/min/1.73m^2); Estimated GFR (Non-African Ame 24 (>=60 mL/min/1.73m^2); Glucose 424 mg/dL (74-106); Phosphorus 3.6 mg/dL (2.6-4.7); Potassium 4.5 mmol/L (3.5-5.1); Sodium 136 mmol/L (136-145)
== END 2024-11-10 15:40 | disposition home or self-care (01) ==
LOC: LAB 15:40
PROVIDERS: PCP Family Medicine; Visit Provider Physician Assistant
DX: N18.9 Chronic kidney disease, unspecified (principal)
CPT/HCPCS: 36415; 80069

== ENCOUNTER 2024-12-04 15:46 | Emergency (ER) | payer MEDICARE, SELFPAY ==
[2024-12-04] VITALS (17 sets, daily range): BP systolic 138–204; BP diastolic 72–114; PULSE 75–120; TEMP 36.9; O2SAT 93–99; BMI 43.8
--- NOTE | 2024-12-04 16:10 | ECG_ITS ---
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
--- NOTE | 2024-12-04 16:10 | ED.SOB1 ---
HPI - SOB/Dyspnea General Chief Complaint: Shortness of Breath/Dyspnea Stated Complaint: short of breath Time Seen by Provider: 12/04/24 16:00 Source: patient Mode of arrival: Wheelchair History of Present Illness HPI Narrative: The patient presented to the ER for concern of chest discomfort and acid reflux increase, he also mentioned that she think that she has been having hypoglycemic episode more than usual for the last few days. Patient blood sugar monitor attached to her arm is showing her low blood sugar in the middle of the night and she have to eat to make sure that it get elevated The patient is also concerned that she have some swelling and edema in her leg although she admits that the swelling is better than yesterday and she denies any other concerns Related Data Home Medications ?Medication ?Instructions ?Recorded ?Confirmed insulin glargine 100 unit/mL (3 20 unit subcut BEDTIME 04/25/23 12/04/24 mL) subcutaneous pen (Lantus Solostar U-100 Insulin) metoprolol tartrate 100 mg tablet 150 mg PO BID 04/25/23 12/04/24 alprazolam 0.25 mg tablet 0.25 mg PO TID PRN anxiety 04/30/24 12/04/24 levothyroxine 125 mcg tablet 125 mcg PO .acb 04/30/24 12/04/24 oxycodone-acetaminophen 5 mg-325 1 tab PO DAILY PRN pain 04/30/24 12/04/24 mg tablet insulin NPH isoph U-100 human 100 1 unit subcut ACHS 06/09/24 12/04/24 unit/mL (3 mL) subcutaneous pen (Novolin N FlexPen) atorvastatin 20 mg tablet 20 mg PO QPM 06/18/24 12/04/24 biotin 10,000 mcg disintegrating 10,000 mcg PO DAILY 06/18/24 12/04/24 tablet cholecalciferol (vitamin D3) 125 125 mcg PO DAILY 06/18/24 12/04/24 mcg (5,000 unit) tablet (Vitamin D3) lisinopril 10 mg tablet 10 mg PO DAILY 06/18/24 12/04/24 rivaroxaban 20 mg tablet (Xarelto) 20 mg PO DAILY 06/18/24 12/04/24 vit C 226 mg-vit E 90 mg-copper 1 cap PO BID 06/18/24 12/04/24 0.8 mg-zinc oxide-lutein 5 mg capsule (PreserVision Lutein) diltiazem HCl 120 mg 120 mg PO .QD 07/14/24 12/04/24 capsule,extended release 24 hr famotidine 20 mg tablet 20 mg PO .qhs 07/24/24 12/04/24 omeprazole 40 mg capsule,delayed 40 mg PO .acb 07/24/24 12/04/24 release Previous Rx's ?Medication ?Instructions ?Recorded furosemide 40 mg tablet (Lasix) 40 mg PO DAILY #30 tabs 07/25/24 spironolactone 25 mg tablet 25 mg PO DAILY #30 tabs 07/25/24 (Aldactone) famotidine 20 mg tablet (Pepcid) 20 mg PO BID #14 tabs 12/04/24 Allergies Allergy/AdvReac Type Severity Reaction Status Date / Time Iodinated Contrast Media Allergy Intermediate Hives Verified 12/04/24 16:02 shellfish derived Allergy Intermediate Hives Verified 12/04/24 16:02 Sulfa (Sulfonamide Allergy Rash Verified 12/04/24 16:02 Antibiotics) Review of Systems ROS Status of ROS 10 or more systems reviewed and unremarkable except as noted in history and below [facility] Medical History (Updated 12/04/24 @ 17:58 by Nikky Silverman MD) Intermittent palpitations ?R00.2 - Palpitations (ICD-10) Acute hyperglycemia ?R73.9 - Hyperglycemia, unspecified (ICD-10) Acute kidney injury ?N17.9 - Acute kidney failure, unspecified (ICD-10) Uncontrolled diabetes mellitus Acute on chronic clinical systolic heart failure ?I50.23 - Acute on chronic systolic (congestive) heart failure (ICD-10) Acute renal failure ?N17.9 - Acute kidney failure, unspecified (ICD-10) Hyperkalemia ?E87.5 - Hyperkalemia (ICD-10) Acute dehydration ?E86.0 - Dehydration (ICD-10) CKD stage 3a, GFR 45-59 ml/min ?N18.31 - Chronic kidney disease, stage 3a (ICD-10) Diabetes mellitus with hyperglycemia, with long-term current use of insulin ?E11.65 - Type 2 diabetes mellitus with hyperglycemia (ICD-10) ?Z79.4 - longterm (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9 - Obesity, unspecified (ICD-10) Surgical History History of cholecystectomy ?Z90.49 - Acquired absence of other specified parts of digestive tract (ICD-10) History of appendectomy ?Z90.49 - Acquired absence of other specified parts of digestive tract (ICD-10) History of hysterectomy ?Z90.710 - Acquired absence of both cervix and uterus (ICD-10) H/O lumbosacral spine surgery ?Z98.890 - Other specified postprocedural states (ICD-10) H/O bilateral mastectomy ?Z90.13 - Acquired absence of bilateral breasts and nipples (ICD-10) Family History Other Family history of CHF (congestive heart failure) Family history of cancer Family history of diabetes mellitus Family history of hypertension H/O mastectomy Social History Within the past year, how often did you have a drink containing alcohol: never Within the past year, how often did you have six or more drinks on one occasion: never Score interpretation: A score less than 3 is consistent with normal alcohol consumption. 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 Highest level of school completed/degree received: some college, no degree Do you want help with school or training: No Are you now , , , , never or living with a partner: In a typical week, how many times do you talk on the telephone with family, friends, or neighbors: twice per week How often do you get together with friends or relatives: twice per week How often do you attend mormon or anabaptist services: never Do you belong to any clubs or organizations such as mormon groups unions, fraternal or athletic groups, or school groups: no Total score: 2 Score interpretation: A score of greater than or equal to 2 indicates the lowest level of social isolation. Little interest or pleasure in doing things: not at all Feeling down, depressed, or hopeless: not at all Feel stressed/tense/nervous/anxious/difficulty sleeping: not at all Due to disability, difficulty making decisions: No Do you think of yourself as: straight/heterosexual Gender Identity: female Exam Narrative Exam Narrative: Nurses notes and vital signs reviewed and patient is not hypoxic. General: Well-appearing and in no apparent distress. Skin: Warm, dry, no pallor noted. No rash. Head: Normocephalic, atraumatic. Neck: Supple, non-tender. Eye: Pupils are equal, round and EOMI. No scleral icterus. Ears, Nose, Mouth, and Throat: TM are clear, no nasal mucosal hypertrophy. Oral mucosa is moist, no posterior oropharynx erythema, uvula is mid-line Cardiovascular: Regular Rate and Rhythm without murmur, gallop or rub. Respiratory: Decreased air entry in the bases no wheezing Back: No midline thoracic or lumbar vertebral tenderness. No CVA tenderness Musculoskeletal: The patient have a chronic edema of the left upper extremity secondary to her mastectomy She also have bilateral leg edema although not pitting GI: Abdomen is soft, non-distended. Normal bowel sounds. No masses appreciated. No tenderness to palpation. No rebound, guarding, or rigidity noted. Neurological: A&O x4. No cranial nerve dysfunction observed Constitutional Vital Signs, click to edit/add: Last Vital Signs Temp 98.5 F 12/04/24 16:02 Pulse 91 H 12/04/24 16:02 Resp 20 12/04/24 16:02 BP 180/100 H 12/04/24 16:30 Pulse Ox 96 12/04/24 16:02 O2 Del Method Room Air 12/04/24 16:02 Course Vital Signs Vital signs: Vital Signs Temperature 98.5 F 12/04/24 16:02 Pulse Rate 91 H 12/04/24 16:02 Respiratory Rate 20 12/04/24 16:02 Blood Pressure 186/84 H 12/04/24 16:02 Pulse Oximetry 96 12/04/24 16:02 Oxygen Delivery Method Room Air 12/04/24 16:02 Temperature 98.5 F 12/04/24 16:02 Pulse Rate 91 H 12/04/24 16:02 Respiratory Rate 20 12/04/24 16:02 Blood Pressure 180/100 H 12/04/24 16:30 Pulse Oximetry 96 12/04/24 16:02 Oxygen Delivery Method Room Air 12/04/24 16:02 MDM - SOB/Dyspnea MDM Narrative Medical decision making narrative: The patient EKG showing sinus rhythm with a heart rate of [address] elevation or depression compared to her baseline EKG It was noted that the patient was not hypoxemic at any time her blood sugar was not also low at any time It is actually in the same time that she measured a 92 blood sugar and her monitor it was found to be 286 an hour readings And her blood sugar here in the blood workup was 331 with improvement of her kidney function and her BNP but baseline not different than her usual BNP The patient is taking Lasix every other day and apparently her kidney function is better. She was able to ambulate in the room with no difficulty her pulse ox never dropped below 96% The patient will follow-up with her primary care doctor within the next few days as she was supposed to follow-up with him today She is to come back to us in case of any new symptoms of concern but it seems that the patient main concern with her acid reflux because of her assumedly low blood sugar readings although the machine is not working and her blood sugar is within normal and that was the main reason the patient was in the ER Patient was discharged to replace her blood sugar monitor tomorrow morning meanwhile she can still depend on the [id number] blood sugar in case needed The patient is to follow up with primary care physician in next 2-3 days or to return to the emergency department should any of the signs or symptoms worsen or new symptoms develop. The patient agrees with the following Diagnosis and Treatment plan and the patient will be discharged home. Lab Data Labs: Lab Results 12/04/24 12/04/24 12/04/24 Range/Units 16:20 16:54 17:48 WBC 8.5 (4.0-11.0) 10^3/uL RBC 4.09 L (4.20-5.40) 10^6/uL Hgb 11.9 L (12.0-16.0) g/dL Hct 37.3 (36.0-48.0) % MCV 91.2 (81.0-99.0) fL MCH 29.1 (26.7-34.0) pg MCHC 31.9 (29.9-35.2) g/dL RDW 14.9 (11.0-15.0) % Plt Count 213 (150-450) 10^3/uL MPV 11.0 (9.5-13.5) fL Neut % (Auto) 74.5 (43.0-75.0) % Lymph % (Auto) 16.4 L (20.5-60.0) % [place] % (Auto) 6.8 (1.7-12.0) % Eos % (Auto) 1.2 (0.9-7.0) % Baso % (Auto) 0.9 (0.2-2.0) % Neut # (Auto) 6.3 (1.4-6.5) 10^3/uL Lymph # (Auto) 1.4 (1.2-3.8) 10^3/uL [place] # (Auto) 0.6 (0.3-0.8) 10^3/uL Eos # (Auto) 0.1 (0.0-0.7) 10^3/uL Baso # (Auto) 0.1 (0.0-0.1) 10^3/uL Abs Immat Gran (auto) 0.02 (0.00-0.03) 10^3/uL Imm/Tot Granulo (auto) 0.2 (0.0-0.5) % PT 11.9 H (9.0-11.6) sec INR 1.14 Sodium 138 (136-145) mmol/L Potassium 4.3 (3.5-5.1) mmol/L Chloride 101 (98-107) mmol/L Carbon Dioxide 29.9 (21.0-32.0) mmol/L Anion Gap 11.4 BUN 28.0 H (7.0-18.0) mg/dL Creatinine 1.24 H (0.55-1.02) mg/dL Est GFR ( Amer) 51 L (>=60 mL/min/1.73m^2) Est GFR (Non-Af Amer) 42 L (>=60 mL/min/1.73m^2) BUN/Creatinine Ratio 22.6 Glucose 310 H (74-106) mg/dL Calcium 8.7 (8.5-10.1) mg/dL Total Bilirubin 0.6 (0.2-1.0) mg/dL AST 16 (15-37) U/L ALT 19 (14-59) U/L Alkaline Phosphatase 111 (46-116) U/L Troponin I High Sens 19.6 (4.0-51.3) pg/mL NT-Pro-B Natriuret Pep 3884.0 H* (<=1800.0) pg/mL Total Protein 7.0 (6.4-8.2) g/dL Albumin 2.7 L (3.4-5.0) g/dL Globulin 4.3 g/dL Albumin/Globulin Ratio 0.6 POC Glucose 258 H (74-106) mg/dL Discharge Plan Discharge Chief Complaint: Shortness of Breath/Dyspnea Clinical Impression: CHF (congestive heart failure) Patient Disposition: Home, Self-Care Time of Disposition Decision: 17:58 Condition: Good Prescriptions / Home Meds: New famotidine [Pepcid] 20 mg tablet 20 mg PO BID Qty: 14 0RF No Action insulin glargine [Lantus Solostar U-100 Insulin] 100 unit/mL (3 mL) insulin pen 20 unit SUBCUT BEDTIME metoprolol tartrate 100 mg tablet 150 mg PO BID levothyroxine 125 mcg tablet 125 mcg PO .acb alprazolam 0.25 mg tablet 0.25 mg PO TID PRN (Reason: anxiety) Patient Comments: 0.25mg PO TID PRN for anxiety oxycodone-acetaminophen 5-325 mg tablet 1 tab PO DAILY PRN (Reason: pain) diltiazem HCl 120 mg capsule,extended release 24hr 120 mg PO .QD Xarelto 20 mg tablet 20 mg PO DAILY Rx Instructions: must administer with evening meal PreserVision Lutein 226-90-0.8-5 mg capsule 1 cap PO BID atorvastatin 20 mg tablet 20 mg PO QPM cholecalciferol (vitamin D3) [Vitamin D3] 125 mcg (5,000 unit) tablet 125 mcg PO DAILY biotin 10,000 mcg tablet,disintegrating 10,000 mcg PO DAILY lisinopril 10 mg tablet 10 mg PO DAILY Novolin N FlexPen 100 unit/mL (3 mL) insulin pen 1 unit SUBCUT ACHS Patient Comments: (if BLOOD SUGAR is BETWEEN 150-199 INJECT 3 (THREE) UNITS, if BETWEEN 200-249 INJECT FOUR UNITS, if BETWEEN 250-299 INJECT 7 (SEVEN) UNITS, if BETWEEN 300-349 INJECT TEN UNITS, if BETWEEN 350-399 INJECT 12 UNITS, if 400 or great INJECT 14 UNITS) Rx Instructions: SLIDING SCALE famotidine 20 mg tablet 20 mg PO .qhs omeprazole 40 mg capsule,delayed release(DR/EC) 40 mg PO .acb furosemide [Lasix] 40 mg tablet 40 mg PO DAILY Qty: 30 0RF spironolactone [Aldactone] 25 mg tablet 25 mg PO DAILY Qty: 30 0RF Print Language: Bruneian Instructions: Heart Failure (DC) Referrals: Theodora Cuevas MD [Primary Care Provider] - 1 week
--- NOTE | 2024-12-04 16:25 | XR_ITS ---
The [address] [address] Patient Name: JOE CALL MRN: [id number] date: 1945 Sex: F Assigned Patient Location: ER Current Patient Location: ER Accession/Order Number: [id number] Exam Date: 12/04/2024 16:20 Report Date: 12/04/2024 17:51 At the request of: SANAZ ALTAMIRANO Procedure: XR chest 1V EXAM: XR chest 1V TECHNIQUE: Single AP view chest HISTORY: sob COMPARISON: 07/24/2024 FINDINGS: The heart and mediastinum are unremarkable. Mild blunting of left costophrenic angle. No acute bony abnormality. XR/XR chest 1V IMPRESSION: Mild blunting of left costophrenic angle which may suggest a small effusion and/or scarring. Electronically authenticated by: BANDAR CERNA Date: 12/04/2024 17:51
[2024-12-04] MEDS: NITROGLYCERIN 0.4 MG BOTTLE SL (16:39)
[2024-12-04 16:48] LABS: Basophils Absolute Auto 0.1 10^3/uL (0.0-0.1); Basophils Percent Auto 0.9 % (0.2-2.0); Eosinophils Absolute Auto 0.1 10^3/uL (0.0-0.7); Eosinophils Percent Auto 1.2 % (0.9-7.0); Hematocrit 37.3 % (36.0-48.0); Hemoglobin 11.9 g/dL (12.0-16.0); Immature Granulocytes Abs Auto 0.02 10^3/uL (0.00-0.03); Immature Granulocytes Pct Auto 0.2 % (0.0-0.5); Lymphocytes Absolute Auto 1.4 10^3/uL (1.2-3.8); Lymphocytes Percent Auto 16.4 % (20.5-60.0); Mean Corpuscular HGB Conc 31.9 g/dL (29.9-35.2); Mean Corpuscular Hemoglobin 29.1 pg (26.7-34.0); Mean Corpuscular Volume 91.2 fL (81.0-99.0); Monocytes Absolute Auto 0.6 10^3/uL (0.3-0.8); Monocytes Percent Auto 6.8 % (1.7-12.0); Neutrophils Absolute Auto 6.3 10^3/uL (1.4-6.5); Neutrophils Percent Auto 74.5 % (43.0-75.0); Platelet Count 213 10^3/uL (150-450); Red Blood Count 4.09 10^6/uL (4.20-5.40); Red Cell Distribution Width 14.9 % (11.0-15.0); White Blood Count 8.5 10^3/uL (4.0-11.0)
[2024-12-04 17:05] LABS: Alanine Aminotransferase 19 U/L (14-59); Albumin Globulin Ratio 0.6; Albumin Level 2.7 g/dL (3.4-5.0); Alkaline Phosphatase 111 U/L (46-116); Anion Gap 11.4; Aspartate Amino Transferase 16 U/L (15-37); BUN Creatinine Ratio 22.6; Bilirubin Total 0.6 mg/dL (0.2-1.0); Calcium 8.7 mg/dL (8.5-10.1); Carbon Dioxide 29.9 mmol/L (21.0-32.0); Chloride 101 mmol/L (98-107); Estimated GFR (African America 51 (>=60 mL/min/1.73m^2); Estimated GFR (Non-African Ame 42 (>=60 mL/min/1.73m^2); Globulin 4.3 g/dL; Glucose 310 mg/dL (74-106); Potassium 4.3 mmol/L (3.5-5.1); Sodium 138 mmol/L (136-145); Troponin I High Sensitivity 19.6 pg/mL (4.0-51.3)
[2024-12-04 17:21] LABS: INR 1.14; Prothrombin Time 11.9 sec (9.0-11.6)
[2024-12-04 17:49] LABS: Glucometer 258 mg/dL (74-106)
== END 2024-12-04 18:14 | disposition home or self-care (01) ==
PROVIDERS: Emergency Provider Emergency Medicine; PCP Family Medicine
DX: I50.9 Heart failure, unspecified (principal); R06.02 Shortness of breath; Z90.49 Acquired absence of other specified parts of digestive tract; Z90.710 Acquired absence of both cervix and uterus; Z90.13 Acquired absence of bilateral breasts and nipples; K21.9 Gastro-esophageal reflux disease without esophagitis
CPT/HCPCS: 36415; 71045; 80053; 83880; 84484; 85025; 85610; 93005; 99285

== ENCOUNTER 2025-01-12 13:49 | Emergency (ER) | payer MEDICARE, SELFPAY ==
[2025-01-12 14:07] VITALS: BP 162/98; PULSE 60; TEMP 36.6; O2SAT 93; BMI 43.9
--- NOTE | 2025-01-12 14:50 | ED.GENADUL1 ---
HPI HPI - General Adult General Chief complaint: Abdominal Pain Stated complaint: TROUBLE W/ GERD , ABDOMINAL PAIN Time Seen by Provider: 01/12/25 14:47 Source: patient Mode of arrival: Wheelchair History of Present Illness HPI narrative: Patient is a 79-year-old female who is here for multiple ongoing chronic complaints. Patient's newer concern is today she had a harder time swallowing cottage cheese. Patient has a history of GERD and acid reflux, and patient states that she has a lot of complications from her GERD. She complains of intermittent shortness of breath, not new today. She states that her abdomen is swollen. She was here 6 months ago for similar complaints, and was told that nothing is wrong with her abdomen patient states that she normally has a flat stomach in her abdomen is swollen. Patient also has chronic lymphedema to her left upper extremity from breast cancer and a radical mastectomy in the past. Patient also has chronic swelling to bilateral lower extremities that is chronic. All systems are negative except as noted/marked. All systems reviewed and otherwise negative. Nurses note and vital signs reviewed and patient is not hypoxic. General: The patient appears well and in no apparent distress. Patient is resting comfortably on cart. Patient is not toxic, lethargic, or listless Skin: Warm, dry, no pallor noted. There is no rash noted. No petechiae, purpura. Head: Normocephalic, atraumatic; patient is able to swallow with no difficulty, no thyromegaly. Patient was drinking tea in the lobby when patient was brought back to room 11. Eye: Normal conjunctiva, no drainage, EOMI. PERRL Ears, Nose, Mouth, and Throat: oral mucosa is moist. Nares patent. Mouth without vesicles. Cardiovascular: Regular Rate and Rhythm, no murmur, gallop, rub Respiratory: Patient is in no distress, no accessory muscle use, lungs are clear to auscultation, no wheezing, rales or rhonchi Back: non-tender, no CVA tenderness bilaterally to percussion. No CT LS midline pain GI: Obese, no pitting edema to abdomen, mild midepigastric tenderness palpation, no flank pain bilateral, no peritoneal signs, otherwise no tenderness to palpation, no masses appreciated. No rebound, guarding, or rigidity noted. No distention Musculoskeletal: Patient has full range of motion of all of the extremities, no motor, sensory, or focal neurological deficits Neurological: A&O x4, normal speech Psychiatric: Cooperative Related Data Home Medications ?Medication ?Instructions ?Recorded ?Confirmed insulin glargine 100 unit/mL (3 20 unit subcut BEDTIME 04/25/23 12/04/24 mL) subcutaneous pen (Lantus Solostar U-100 Insulin) metoprolol tartrate 100 mg tablet 150 mg PO BID 04/25/23 12/04/24 alprazolam 0.25 mg tablet 0.25 mg PO TID PRN anxiety 04/30/24 12/04/24 levothyroxine 125 mcg tablet 125 mcg PO .acb 04/30/24 12/04/24 oxycodone-acetaminophen 5 mg-325 1 tab PO DAILY PRN pain 04/30/24 12/04/24 mg tablet insulin NPH isoph U-100 human 100 1 unit subcut ACHS 06/09/24 12/04/24 unit/mL (3 mL) subcutaneous pen (Novolin N FlexPen) atorvastatin 20 mg tablet 20 mg PO QPM 06/18/24 12/04/24 biotin 10,000 mcg disintegrating 10,000 mcg PO DAILY 06/18/24 12/04/24 tablet cholecalciferol (vitamin D3) 125 125 mcg PO DAILY 06/18/24 12/04/24 mcg (5,000 unit) tablet (Vitamin D3) lisinopril 10 mg tablet 10 mg PO DAILY 06/18/24 12/04/24 rivaroxaban 20 mg tablet (Xarelto) 20 mg PO DAILY 06/18/24 12/04/24 vit C 226 mg-vit E 90 mg-copper 1 cap PO BID 06/18/24 12/04/24 0.8 mg-zinc oxide-lutein 5 mg capsule (PreserVision Lutein) diltiazem HCl 120 mg 120 mg PO .QD 07/14/24 12/04/24 capsule,extended release 24 hr famotidine 20 mg tablet 20 mg PO .qhs 07/24/24 12/04/24 omeprazole 40 mg capsule,delayed 40 mg PO .acb 07/24/24 12/04/24 release Previous Rx's ?Medication ?Instructions ?Recorded furosemide 40 mg tablet (Lasix) 40 mg PO DAILY #30 tabs 07/25/24 spironolactone 25 mg tablet 25 mg PO DAILY #30 tabs 07/25/24 (Aldactone) famotidine 20 mg tablet (Pepcid) 20 mg PO BID #14 tabs 12/04/24 Allergies Allergy/AdvReac Type Severity Reaction Status Date / Time Iodinated Contrast Media Allergy Intermediate Hives Verified 12/04/24 16:02 shellfish derived Allergy Intermediate Hives Verified 12/04/24 16:02 Sulfa (Sulfonamide Allergy Rash Verified 12/04/24 16:02 Antibiotics) Opioid HPI Opioid Management Most Recent Opioid Data: Last Pain Scale 3 07/29/24 10:03 07/29/24 Last Pain Intensity 3 06/09/24 13:07 06/09/24 Last ORT Total Score 0 07/24/24 15:31 07/24/24 Last ORT Risk Category Low Risk 07/24/24 15:31 07/24/24 [facility] Medical History (Updated 01/12/25 @ 15:29 by Jarred Montoya MD) Intermittent palpitations ?R00.2 - Palpitations (ICD-10) Acute hyperglycemia ?R73.9 - Hyperglycemia, unspecified (ICD-10) Acute kidney injury ?N17.9 - Acute kidney failure, unspecified (ICD-10) Uncontrolled diabetes mellitus Acute on chronic clinical systolic heart failure ?I50.23 - Acute on chronic systolic (congestive) heart failure (ICD-10) Acute renal failure ?N17.9 - Acute kidney failure, unspecified (ICD-10) Hyperkalemia ?E87.5 - Hyperkalemia (ICD-10) Acute dehydration ?E86.0 - Dehydration (ICD-10) CKD stage 3a, GFR 45-59 ml/min ?N18.31 - Chronic kidney disease, stage 3a (ICD-10) Diabetes mellitus with hyperglycemia, with long-term current use of insulin ?E11.65 - Type 2 diabetes mellitus with hyperglycemia (ICD-10) ?Z79.4 - intermediate project manager (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9 - Obesity, unspecified (ICD-10) Surgical History History of cholecystectomy ?Z90.49 - Acquired absence of other specified parts of digestive tract (ICD-10) History of appendectomy ?Z90.49 - Acquired absence of other specified parts of digestive tract (ICD-10) History of hysterectomy ?Z90.710 - Acquired absence of both cervix and uterus (ICD-10) H/O lumbosacral spine surgery ?Z98.890 - Other specified postprocedural states (ICD-10) H/O bilateral mastectomy ?Z90.13 - Acquired absence of bilateral breasts and nipples (ICD-10) Family History Other Family history of CHF (congestive heart failure) Family history of cancer Family history of diabetes mellitus Family history of hypertension H/O mastectomy Social History Within the past year, how often did you have a drink containing alcohol: never Within the past year, how often did you have six or more drinks on one occasion: never Score interpretation: A score less than 3 is consistent with normal alcohol consumption. 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 Highest level of school completed/degree received: some college, no degree Do you want help with school or training: No Are you now , , , , never or living with a partner: In a typical week, how many times do you talk on the telephone with family, friends, or neighbors: twice per week How often do you get together with friends or relatives: twice per week How often do you attend gnosticist or rastafarian services: never Do you belong to any clubs or organizations such as gnosticist groups unions, fraSoftricity or athletic groups, or school groups: no Total score: 2 Score interpretation: A score of greater than or equal to 2 indicates the lowest level of social isolation. Little interest or pleasure in doing things: not at all Feeling down, depressed, or hopeless: not at all Feel stressed/tense/nervous/anxious/difficulty sleeping: not at all Due to disability, difficulty making decisions: No Do you think of yourself as: straight/heterosexual Gender Identity: female Exam Constitutional Vital Signs, click to edit/add: Last Vital Signs Temp 97.9 F 01/12/25 14:07 Pulse 60 01/12/25 14:07 Resp 18 01/12/25 14:07 BP 162/98 H 01/12/25 14:07 Pulse Ox 93 L 01/12/25 14:07 O2 Del Method Room Air 01/12/25 14:07 Course Vital Signs Vital signs: Vital Signs Temperature 97.9 F 01/12/25 14:07 Pulse Rate 60 01/12/25 14:07 Respiratory Rate 18 01/12/25 14:07 Blood Pressure 162/98 H 01/12/25 14:07 Pulse Oximetry 93 L 01/12/25 14:07 Oxygen Delivery Method Room Air 01/12/25 14:07 Temperature 97.9 F 01/12/25 14:07 Pulse Rate 60 01/12/25 14:07 Respiratory Rate 18 01/12/25 14:07 Blood Pressure 162/98 H 01/12/25 14:07 Pulse Oximetry 93 L 01/12/25 14:07 Oxygen Delivery Method Room Air 01/12/25 14:07 Medical Decision Making MDM Narrative Medical decision making narrative: Patient was seen and evaluated. 1515 we have is called the GI office at [facility]. Patient has an appointment with Dr. Brown in early February. Patient is at bedside, he had a colonoscopy recently with Dr. Vanessa. 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 Cuevas, PCP, for her ongoing chronic concerns. Patient understands this. No acute indication for testing at this time. Patient was drinking liquids in the lab with no difficulty. Patient states she has had ongoing issues for months and years. Patient has had diarrhea intermittently for 5 years. Patient states she has chronic swelling to the left arm, lower legs. Patient understands with her ongoing chronic problems, she has to follow-up with specialist, unfortunately no acute testing at this time there is no GI specialty that is on consult today they can see her today in the ER. Patient was explained this. No question at discharge. Discharge Plan Discharge Chief Complaint: Abdominal Pain Clinical Impression: Dysphagia Patient Disposition: Home, Self-Care Time of Disposition Decision: 15:37 Condition: Fair Prescriptions / Home Meds: No Action insulin glargine [Lantus Solostar U-100 Insulin] 100 unit/mL (3 mL) insulin pen 20 unit SUBCUT BEDTIME metoprolol tartrate 100 mg tablet 150 mg PO BID levothyroxine 125 mcg tablet 125 mcg PO .acb alprazolam 0.25 mg tablet 0.25 mg PO TID PRN (Reason: anxiety) Patient Comments: 0.25mg PO TID PRN for anxiety oxycodone-acetaminophen 5-325 mg tablet 1 tab PO DAILY PRN (Reason: pain) diltiazem HCl 120 mg capsule,extended release 24hr 120 mg PO .QD famotidine [Pepcid] 20 mg tablet 20 mg PO BID Qty: 14 0RF Xarelto 20 mg tablet 20 mg PO DAILY Rx Instructions: must administer with evening meal PreserVision Lutein 226-90-0.8-5 mg capsule 1 cap PO BID atorvastatin 20 mg tablet 20 mg PO QPM cholecalciferol (vitamin D3) [Vitamin D3] 125 mcg (5,000 unit) tablet 125 mcg PO DAILY biotin 10,000 mcg tablet,disintegrating 10,000 mcg PO DAILY lisinopril 10 mg tablet 10 mg PO DAILY Novolin N FlexPen 100 unit/mL (3 mL) insulin pen 1 unit SUBCUT ACHS Patient Comments: (if BLOOD SUGAR is BETWEEN 150-199 INJECT 3 (THREE) UNITS, if BETWEEN 200-249 INJECT FOUR UNITS, if BETWEEN 250-299 INJECT 7 (SEVEN) UNITS, if BETWEEN 300-349 INJECT TEN UNITS, if BETWEEN 350-399 INJECT 12 UNITS, if 400 or great INJECT 14 UNITS) Rx Instructions: SLIDING SCALE famotidine 20 mg tablet 20 mg PO .qhs omeprazole 40 mg capsule,delayed release(DR/EC) 40 mg PO .acb furosemide [Lasix] 40 mg tablet 40 mg PO DAILY Qty: 30 0RF spironolactone [Aldactone] 25 mg tablet 25 mg PO DAILY Qty: 30 0RF Print Language: Estonian Instructions: Dysphagia (ED) Additional Instructions: You have an appointment scheduled for Dr. Cuevas at 10 AM on January 14, Sunday. We have called the GI office trying to help get you a sooner appointment compared to early February. Patient is not able to get a sooner appointment, they are booked out past March. Continue to soft diet, also use protein shakes, Ensure drinks, Gatorade, Powerade Referrals: Theodora Cuevas MD [Primary Care Provider] - 1 week
== END 2025-01-12 15:50 | disposition home or self-care (01) ==
PROVIDERS: Emergency Provider Emergency Medicine; PCP Family Medicine
DX: R13.10 Dysphagia, unspecified (principal); R10.9 Unspecified abdominal pain; K21.9 Gastro-esophageal reflux disease without esophagitis; Z85.3 Personal history of malignant neoplasm of breast; Z90.710 Acquired absence of both cervix and uterus; Z90.13 Acquired absence of bilateral breasts and nipples; Z90.49 Acquired absence of other specified parts of digestive tract
CPT/HCPCS: 99283

== ENCOUNTER 2025-01-25 03:56 | Inpatient (IN) | payer MEDICARE, SELFPAY ==
[2025-01-25] VITALS (34 sets, daily range): BP systolic 146–198; BP diastolic 68–86; PULSE 53–100; TEMP 36.3–36.5; O2SAT 87–100; BMI 41.9
--- OUTSIDE RECORDS SUMMARY | 2025-01-25 04:03 | XMS_ITS | CCD ---
Author Organization [facility] Care Team Providers Care Facility Maintenance Supervisor Name Role Phone UNKNOWN, PROVIDER Unavailable Unavailable UNKNOWN, PROVIDER Unavailable Unavailable NIC BRYAN Unavailable Unavailable Akbar Cui II Unavailable SHANTEL STEVEN Primary Care Physician [phone] SHANTEL STEVEN Primary [...] Care Provider MD Shantel Steven Other Provider [phone] MD Eloina Hussein Attending Provider MD Eloina Hussein Referring Provider DO Jorge Luis Zavala Emergency Provider [phone] MD Shantel Steven Primary Care Provider DO Jorge Luis Zavala Emergency Provider MD Shantel Steven Primary Care Provider MD Shantel Steven Attending Provider MD Shantel Steven Attending Provider [phone] Steven Shantel ESCOBAR Primary Care Provider LIZETT JACINTO Attending Unavailable SHANTEL STEVEN Referring Unavailable JOSEPHSCHRISTEL Attending Unavailable SHANTEL STEVEN Referring Unavailable TIMMISCHRISTEL Attending Unavailable SHANTEL STEVEN Referring Unavailable SABRINA LUNA Attending Unavailable SABRINA LUNA Attending Unavailable YAMEL MCCRACKEN Attending Unavailable YAMEL MCCRACKEN Attending Unavailable YAMEL MCCRACKEN Attending Unavailable RICA KAPLAN Attending Unavailable MICHELA DELACRUZ Attending Unavailable RICA KAPLAN Attending Unavailable Zhang Norwood Admitting Unavailable Zhang Norwood Attending Unavailable Shantel Steven Primary Care Unavailable Shantel Steven Primary Care Unavailable Shantel Steven Consulting Unavailable Jovita, Selvon F Admitting Unavailable Jovita, Selvon F Attending Unavailable Jovita, Selvon F Referring Unavailable Shantel Steven Attending Unavailable Shantel Steven Admitting Unavailable Shantel Steven Primary Care Unavailable Jorge Luis Zavala Admitting Unavailable Jorge Luis Zavala Attending Unavailable Kavin Escobar Attending UnavailMauri Pleitez Admitting Unavailable Ange Vergara Consulting Unavailable Shantel Steven Primary Care Unavailable Renetta Trivedi Consulting UnavailDaniele Booth Admitting Unavailable Daniele Jane Attending Unavailable Shantel Steven Primary Care Unavailable FRANCHESCA PERAZA Attending Unavailable FRANCHESCA PERAZA Attending Unavailable FRANCHESCA PERAZA Attending Unavailable FRANCHESCA PERAZA Attending Unavailable FRANCHESCA PERAZA Attending Unavailable Jorge Luis Zavala DO Emergency Provider Shantel Steven MD Primary Care Provider Mauri Chavira DO Admit Provider [phone] Ange Vergara MD Other Provider Renetta Trivedi MD Other Provider Kavin Escobar DO Attending Provider Zhang Norwood DO Emergency Provider Daniele Jane DO Emergency Provider Shantel Cho MD Primary Care Provider Zhang Norwood DO Emergency Provider Daniele Jane DO Emergency Provider Shantel Cho MD Primary Care Provider Allergies Allergy Classification Reported Allergen(s) Allergy Type Date of Onset Reaction(s) Facility (1 source) Iodine (And Iodine Containting Drugs) Drug allergy (disorder) 03-04-[address] [facility] (20 sources) Shellfish; Translations: [Shellfish] Food allergy (disorder) 03-04-20 12 rash, Eruption of skin (disorder) [facility] (20 sources) Sulfonamides (Antibiotic); Translations: [SULFA (SULFONAMIDE ANTIBIOTICS)] Drug allergy (disorder) 03-04-[address] [facility] (20 sources) Sulfacetamide Drug Allergy 02-15-20 24 diarrhea [facility] (20 sources) Contrast media; Translations: [contrast media (iodine-based)] Drug allergy 02-15-20 24 Unknown (qualifier value), Rash [facility] (6 sources) Sulfonamides (Antibiotic); Translations: [sulfa drugs] Drug allergy Diarrhea (finding) [facility] (2 sources) Glucosamine Drug Allergy [facility] (2 sources) Iodine (And Iodine Containting Drugs) Drug allergy (disorder) 08-09-20 17 [facility] (11 sources) Contrast media Propensity to adverse reactions 11-18-[address] DYE [facility] Other (20 sources) Iodine; Translations: [IODINE] Drug Allergy 10-30-20 14 Other, Unknown [facility] Other (20 sources) Substance with sulfonamide structure and antibacterial mechanism of action (substance) Drug allergy 10-30-20 14 Unknown [facility] Other (11 sources) Dyes Propensity to adverse reactions Comment:CT Dyes,Dyes,IVP Dyes [facility] Other (19 sources) Shellfish; Translations: [SHELLFISH DERIVED] Allergy to substance 10-30-20 14 [facility] (19 sources) Iodinated Contrast Media; Translations: [IODINATED CONTRAST MEDIA] Allergy to substance 02-15-20 24 [facility] (12 sources) metFORMIN Drug Allergy 07-03-20 24 [facility] (6 sources) Chocolate Flavoring Agent (Non-Screening) Propensity to adverse reactions 01-17-20 23 [facility] [employer] Work Phone: (12 sources) Shellfish-Derive d Products Drug Intolerance 03-15-20 18 [facility] (7 sources) Chocolate; Translations: [CHOCOLATE FLAVOR] Propensity to adverse reactions 01-17-20 23 [facility] [employer] Work Phone: (1 source) Sulfacetamide Drug Allergy 11-11-20 [facility] Rep[facility] (1 source) Sulfonamides (Antibiotic) Drug allergy (disorder) 11-11-20 [facility] Rep[facility] Medications Current Medications Medication Drug Class(es) [...] sources) HMG-CoA Reductase Inhibitor Start: 03-07-2021 take 1 tablet by mouth once daily Atorvastatin 20 mg tablet Active 20 MG PO Daily June 11, 2021 12:00am B-12 (5 sources) Start: 03-07-2021 B-12 Refills(s ) 0 Start Date: 03/07/21 Status: Ordered biotin 10 mg oral capsule (20 sources) Start: 06-05-2024 take 1 capsule by mouth once daily biotin 10 MG capsule Take 1 capsule by mouth Daily 06/05/2024 Active Start: 06-05-2024 End: 11-03-2024 take 1 capsule by mouth once daily Biotin 10,000 mcg capsule Discontinued 52271 MCG PO daily June 05, 2024 12:00am November 03, 2024 12:41pm Start: 01-17-2024 End: 04-03-2024 take 1 capsule by mouth once daily Biotin 5 mg capsule Discontinued 5 MG PO Daily January 17, 2024 1:00am April 03, 2024 11:46am take 1 capsule by [facility] every twenty-four hours Biotin 5 MG 1 capsule Orally Once a day Active bumetanide 1 mg oral tablet (8 sources) Loop Diuretic Start: 06-18-2024 End: 06-18-2025 take 1 tablet by mouth in the morning bumetanide (Bumex) 1 MG tablet Take 1 mg by mouth in the morning and 1 mg in the evening. 06/18/2024 06/18/2025 Active busPIRone hydrochloride 5 mg oral tablet (5 sources) Start: 01-06-2025 take 1 tablet by mouth twice daily Buspirone 5 mg tablet Active 0 .ROUTE .COMPLEX January 06, 2025 3:13pm TAKE 1 TABLET BY MOUTH TWICE DAILY Start: 12-09-2024 End: 01-06-2025 take 1 tablet by mouth twice daily Buspirone 5 mg tablet Discontinued 5 MG PO Twice daily December 09, 2024 1:00am January 06, 2025 3:14pm cholecalciferol 0.025 mg oral capsule (20 sources) Vitamin D Start: 06-05-2024 take 1 capsule by mouth once daily Cholecalciferol (Vitamin D3) 25 mcg (1,000 unit) capsule Active 25 MCG PO Daily June 05, 2024 12:00am Start: 01-17-2024 End: 06-05-2024 take 1 capsule by mouth once daily Cholecalciferol (Vitamin D3) 125 mcg (5,000 unit) capsule Discontinued 125 MCG PO Daily January 17, 2024 1:00am June 05, 2024 12:02pm take 1 capsule by [facility] every twenty-four hours Vitamin D3 125 MCG (5000 UT) 1 capsule Orally Once a day Active take 1 capsule by [facility] every twenty-four hours Vitamin D3 25 MCG (1000 UT) 1 capsule Orally Once a day Active cholestyramine resin 4000 mg powder for oral suspension (5 sources) Bile Acid Sequestrant Start: 03-07-2021 Questran 4 g/9 g ora l powder = 1 packet(s), Oral, Daily, # 30 EA, Refills(s) 11, Pharmacy: [id number], 165.1, cm, 03/07/21 13:49:00 EDT, Height/Length Dosing, 121.8, kg, 03/07/21 13:49:00 EDT, Weight Dosing Start Date: 03/07/21 Status: Ordered Start: 03-07-2021 Questran 4 g/9 g oral powder = 1 packet(s), Oral, Daily, # 30 EA, Refills(s) 11, Pharmacy: [id number], 165.1, cm, 03/07/21 13:49:00 EDT, Height/Length [...] Ordered Start: 06-19-2021 take 1 capsule by [facility] once daily Diltiazem Hcl 120 mg capsule,extended release 24hr Active 120 MG PO Daily June 19, 2021 12:00am End: 07-22-2024 take 1 tablet by mouth in the morning dilTIAZem (Cardizem) 120 MG immediate release tablet Take 120 mg by mouth in the morning. 07/22/2024 Discontinued (Duplicate order) take 1 capsule by mo [facility] every twelve hours dilTIAZem HCl ER 120 MG 1 capsule Orally Twice a day Active DULoxetine 20 mg delayed release oral capsule (5 sources) Serotonin and Norepinephrine Reuptake Inhibitor Start: 01-06-2025 take 1 capsule by mouth once daily Duloxetine 20 mg capsule,delayed release(DR/EC) Active 0 .ROUTE .COMPLEX January 06, 2025 3:13pm TAKE 1 CAPSULE BY MOUTH DAILY Start: 12-09-2024 End: 01-06-2025 take 1 capsule by mouth once daily Duloxetine (Cymbalta) 20 mg capsule,delayed release(DR/EC) Discontinued 20 MG PO Daily December 09, 2024 1:00am January 06, 2025 3:14pm famotidine 20 mg oral tablet (20 sources) Histamine-2 Receptor Antagonist Start: 01-06-2025 take 1 tablet by mouth at bedtime Famotidine 20 mg tablet Active 0 .ROUTE .COMPLEX January 06, 2025 3:13pm TAKE 1 TABLET BY MOUTH AT BEDTIME Start: 01-17-2024 End: 01-06-2025 take 1 tablet by mouth once daily at bedtime Famotidine 20 mg tablet Discontinued 20 MG PO Daily at bedtime December 09, 2024 2:56pm January 06, 2025 3:14pm Start: 01-07-2023 take 1 tablet by [facility] every twenty-four hours Famotidine [...] Glucose Scanning Reade r (Freestyle Familia 2 [place]) misc (7 sources) Start: 09-10-2024 Flash Glucose Scanning [place] (Freestyle Familia 2 [place]) misc Active 0 .Route 1 September 10, 2024 8:12am As directed Start: 09-10-2024 Flash Glucose Scanning [place] (Freestyle Familia 2 [place]) misc Active 0 .Route 1 September 10, 2024 7:12am As directed Start: 07-16-2024 End: 09-10-2024 Flash Glucose Scanning Reade r (Freestyle Familia 2 [place]) misc Discontinued 0 .Route July 16, 2024 12:00am September 10, 2024 8:13am As directed Start: 07-16-2024 End: 09-10-2024 Flash Glucose Scanning Reade r (Freestyle Familia 2 [place]) misc Discontinued 0 .Route July 15, 2024 11:00pm September 10, 2024 7:13am As directed Start: 07-16-2024 Flash Glucose Scanning [place] (Freestyle Familia 2 [place]) misc Active 0 .Route 1 July 16, 2024 12:00am As directed Flash Glucose Sensor (Freest yle Familia 2 Sensor) kit (20 sources) Start: 12-23-2024 Flash Glucose Sensor (Freestyle Familia 2 Sensor) kit Active 0 .ROUTE .COMPLEX 1 December 23, 2024 2:15pm USE DIRECTED to test BLOOD SUGAR DAILY *change EVERY 14 days * Start: 12-23-2024 Flash Glucose Sensor (Freestyle Familia 2 Sensor) kit Active 0 .ROUTE .COMPLEX 1 December 23, 2024 1:15pm USE DIRECTED to test BLOOD SUGAR DAILY *change EVERY 14 days * Start: 10-27-2024 End: 12-23-2024 Flash Glucose Sensor (Freest yle Familia 2 Sensor) kit Discontinued 0 .ROUTE .COMPLEX October 27, 2024 4:09pm December 23, 2024 2:15pm USE DIRECTED to test BLOOD SUGAR DAILY *change EVERY 14 days * Start: 10-27-2024 End: 12-23-2024 Flash Glucose Sensor (Freest yle Familia 2 Sensor) kit Discontinued 0 .ROUTE .COMPLEX 1 October 27, 2024 3:09pm December 23, 2024 1:15pm USE DIRECTED to test BLOOD SUGAR DAILY *change EVERY 14 days * Start: 09-01-2024 End: 10-27-2024 Flash Glucose Sensor (Freest yle Familia 2 Sensor) kit Discontinued 0 .ROUTE .COMPLEX 1 September 01, 2024 4:55pm October 27, 2024 4:09pm USE DIRECTED to test BLOOD SUGAR DAILY *change EVERY 14 days * Start: 09-01-2024 End: 10-27-2024 Flash Glucose Sensor (Freest yle Familia 2 Sensor) kit Discontinued 0 .ROUTE .COMPLEX 1 September 01, 2024 3:55pm October 27, 2024 3:09pm USE DIRECTED to test BLOOD SUGAR DAILY *change EVERY 14 days * Start: 07-17-2024 End: 09-01-2024 Flash Glucose Sensor (Freest yle Familia 2 Sensor) kit Discontinued 0 .ROUTE .COMPLEX 1 July 17, 2024 11:19am September 01, 2024 4:55pm USE DIRECTED to test BLOOD SUGAR DAILY *change EVERY 14 days * Start: 07-17-2024 End: 09-01-2024 Flash Glucose Sensor (Freest yle Familia 2 Sensor) kit Discontinued 0 .ROUTE .COMPLEX 1 July 17, 2024 10:19am September 01, 2024 3:55pm USE DIRECTED to test BLOOD SUGAR DAILY *change EVERY 14 days * Start: 07-17-2024 Flash Glucose Sensor (Freestyle Familia 2 Sensor) kit Active 0 .ROUTE .COMPLEX 1 July 17, 2024 11:19am USE DIRECTED to test BLOOD SUGAR DAILY *change EVERY 14 days * Start: 05-07-2024 End: 07-17-2024 Flash Glucose Sensor (Freest yle Familia 2 Sensor) kit Discontinued 0 .Route 1 May 06, 2024 11:00pm July 17, 2024 10:19am As directed Start: 05-07-2024 End: 07-17-2024 Flash Glucose Sensor (Freest yle Familia 2 Sensor) kit Discontinued 0 .Route 1 May 07, 2024 12:00am July 17, 2024 11:19am As directed Start: 05-07-2024 Flash Glucose Sensor (Freestyle Familia 2 Sensor) kit Active 0 .Route 1 May 07, 2024 12:00am As directed furosemide 40 mg oral tablet (20 sources) Loop Diuretic Start: 11-11-2024 Furosemide 40 mg tablet Active 40 MG PO Every 48 hours November 11, 2024 3:11pm further refills or dose adjustment per Nephrology. Start: 10-20-2024 End: 11-11-2024 take 1 tablet by mouth once daily Furosemide 40 mg Tablet Discontinued 40 MG PO Daily October 20, 2024 1:00am November 11, 2024 3:11pm further refills or dose adjustment per Nephrology. Start: 01-17-2024 End: 05-07-2024 take 1 tablet by mouth once daily Furosemide (Lasix) 40 mg tablet Discontinued 40 MG PO Daily January 17, 2024 1:00am May 07, 2024 12:01pm Start: 07-27-2022 End: 10-20-2024 take 1 tablet by mouth once daily Furosemide (Lasix) 20 mg tablet Discontinued 20 MG PO Daily June 16, 2024 12:00am October 20, 2024 2:15pm take 1 tablet by joesph th every twenty-four hours Lasix 40 MG 1 tablet Orally Once a day Active gabapentin 100 mg oral capsule (11 sources) Anti-epileptic Agent Start: 07-10-2024 End: 07-10-2025 [...] pen injector (20 sources) Insulin Analog Start: 12-31-2024 Insulin Glargine (Basaglar Kwikpen U-100 Insulin) 100 unit/mL (3 mL) insulin pen Active 15 UNIT SUBCUT Every evening December 31, 2024 11:58am Start: 06-13-2024 inject 20 [IU] by garcia bcutaneous injection in the morning Basaglar KwikPen 100 UNIT/ML pen Inject 20 Units under the skin in the morning and 20 Units before bedtime. 06/13/2024 Active Start: 06-05-2024 End: 12-31-2024 Insulin Glargine (Basaglar Kwikpen U-100 Insulin) 100 unit/mL (3 mL) insulin pen Discontinued 20 UNIT SUBCUT Every evening June 13, 2024 11:12am December 31, 2024 11:58am Start: 03-25-2024 End: 04-03-2024 Insulin Glargine (Lantus Cha ostar U-100 Insulin) 100 unit/mL (3 mL) insulin pen Discontinued 20 UNIT SUBCUT Every morning March 25, 2024 12:00am April 03, 2024 11:47am Start: 03-13-2024 inject 35 [IU] by garcia bcutaneous injection in the morning Lantus 100 [...] insulin isophane, human 100 unt/ml pen injector (20 sources) Start: 01-24-2024 insulin NPH, I sophane, (HumuLIN N,NovoLIN N) 100 UNIT/ML injection Inject 1 Units under the skin 01/24/2024 Active Start: 01-24-2024 inject 14 [IU] by garcia bcutaneous injection three times daily Insulin Nph Isoph U-100 Human (Novolin N Flexpen) 100 unit/mL (3 mL) insulin pen Active 1 UNIT SUBCUT Three times daily January 24, 2024 12:00am 150-199 mg/dl 3 unit 200-249 mg/dl 4 unit 250-299 mg/dl 7 unit 300-349 mg/dl 10 unit 350-399 mg/dl 12 unit greater than or = 400 mg/dl 14 unit ketoconazole 20 mg/ml medicated shampoo (20 sources) Azole Antifungal Start: 12-26-2024 Ketoconazole 2 % shampoo Active 1 APPLIC TOPICAL Twice a Week December 26, 2024 1:00am Start: 08-07-2024 End: 11-03-2024 Ketoconazole 2 % cream Disco ntinued 1 APPLIC TOPICAL Twice daily August 07, 2024 12:00am November 03, 2024 12:41pm Start: 02-15-2024 End: 04-29-2024 Ketoconazole 2 % cream Disco ntinued 1 APPLIC TOPICAL Daily February 15, 2024 12:00am April 29, 2024 1:36pm Lantus Solostar Pen (5 sources) Start: 07-27-2022 inject 35 [IU] by subcutaneous injection once daily at bedtime Lantus Solostar Pen 35 unit(s), SubCutaneous, Once a day (at bedtime), Refill(s) 0 Start Date: 07/27/22 Status: Ordered levothyroxine sodium 0.112 mg oral capsule (20 sources) l-Thyrox ine Start: 11-03-2024 take 1 capsule by mouth once daily Levothyroxine 112 mcg capsule Active 112 MCG PO Daily November 03, 2024 1:00am Start: 06-07-2024 take 1 tablet by joesph th before mealtime levothyroxine (Synthroid, Levoxyl) 125 MCG tablet Take 125 mcg by mouth in the morning. Take before meals. 06/07/2024 Active Start: 04-03-2024 End: 11-03-2024 take 1 tablet by mouth once daily Levothyroxine 125 mcg tablet Discontinued 0 .ROUTE .COMPLEX July 07, 2024 12:54pm October 06, 2024 2:15pm TAKE 1 TABLET BY MOUTH DAILY Start: 04-03-2024 End: 04-03-2024 take 1 tablet by mouth once daily Levothyroxine 125 mcg tablet Discontinued 125 MCG PO Daily April 03, 2024 12:00am April 03, 2024 3:16pm Start: 06-11-2021 End: 04-03-2024 take 1 tablet by mouth once daily Levothyroxine 112 mcg tablet Discontinued 112 MCG PO Daily June 11, 2021 12:00am April 03, 2024 12:05pm Start: 03-07-2021 take 112 ug by mouth once mayte y levothyroxine 112 mcg, Oral, Daily, Refills(s) 0 Start Date: 03/07/21 Status: Ordered Levothyroxine So dium 112 MCG TAKE 1 TABLET EVERY DAY for 90 Active Loperamide (14 sources) Opioid Agonist metroNIDAZOLE 500 mg oral tablet (20 sources) Nitroimidazole Antimicrobial Start: 01-15-20 take 1 tablet by mouth three times daily Metronidazole 500 mg tablet Active 0 .ROUTE .COMPLEX January 14, 2025 11:27am TAKE 1 TABLET BY MOUTH THREE TIMES DAILY FOR 10 DAYS Start: 09-16-2024 End: 10-16-2024 take 1 tablet by mouth three times daily Metronidazole 500 mg tablet Discontinued 0 .ROUTE .COMPLEX September 16, 2024 10:28am October 16, 2024 3:28pm TAKE 1 TABLET BY MOUTH THREE TIMES DAILY FOR 10 DAYS Start: 04-10-2024 End: 06-05-2024 take 1 tablet by mouth twice daily Metronidazole 500 mg tablet Discontinued 500 MG PO Twice daily April 10, 2024 12:00am June 05, 2024 12:06pm Start: 01-30-2024 End: 03-25-2024 take 1 tablet by mouth three times daily Metronidazole 500 mg tablet Discontinued 0 .ROUTE .COMPLEX January 30, 2024 12:55pm March 25, 2024 3:47pm TAKE 1 TABLET BY MOUTH THREE TIMES DAILY FOR 10 DAYS Start: 01-29-2024 End: 01-30-2024 take 1 tablet by mouth three times daily Metronidazole 500 mg tablet Discontinued 500 MG PO Three times daily 10 09January 29, 2024 12:00am January 30, 2024 12:56pm Start: 01-29-2024 End: 01-30-2024 Start: 07-23-2023 take 1 tablet by joesph th every eight hours metroNIDAZOLE 500 MG 1 tablet Orally Three times a day for 10 days Jul, Active Start: 03-07-2023 take 1 tablet by joesph th every eight hours Multiple Vitamins-Minerals (PRESERVISION AREDS 2 PO) (8 sources) Multiple Vitamins-Minerals (PRESERVISION AREDS 2 PO) Take by mouth Active omeprazole 40 mg delayed release oral capsule (13 sources) Proton Pump Inhibitor Start: 025 take 1 capsule by mouth once daily Omeprazole 40 mg capsule,delayed release(DR/EC) Active 0 .ROUTE .COMPLEX January 06, 2025 3:13pm TAKE 1 CAPSULE BY MOUTH DAILY Start: 12-09-2024 End: 01-06-2025 take 1 capsule by mouth once daily Omeprazole 40 mg capsule,delayed release(DR/EC) Discontinued 40 MG PO Daily December 09, 2024 1:00am January 06, 2025 3:14pm Start: 07-22-2024 End: 10-20-2024 take 1 capsule by mouth before mealtime omeprazole (PriLOSEC) [address] capsule Indications: LPRD (laryngopharyngeal reflux disease) Take 1 capsule (40 mg) by mouth in the morning. Take before meals. Do not crush or chew.. 90 capsule 07/22/2024 Active pantoprazole 40 mg delayed release oral tablet (5 sources) Proton Pump Inhibitor Start: 07-27-2022 take 1 tablet by mouth once daily Pantoprazole [address] Tab 40 mg = 1 tab(s), Oral, Daily, Refills(s) 0 Start Date: 07/27/22 Status: Ordered PreserVision AREDS (5 sources) Start: 07-27-2022 PreserVision A REDS Refill(s) 0 Start Date: 07/27/22 Status: Ordered propranolol hydrochloride 40 mg oral tablet (3 sources) beta-Adrenergic Khadijah Start: 12-26-2024 take 1 tablet by mouth twice daily Propranolol 40 mg tablet Active 40 MG PO Twice daily December 26, 2024 1:00am rivaroxaban 20 mg oral tablet (20 sources) [...] oral tablet (20 sources) Aluminum Complex Start: 01-14-2025 take 1 tablet by mouth once before mealtime Sucralfate (Carafate) 1 gram tablet Active 1 GM PO 3x/Day before meals January 14, 2025 1:00am Start: 01-17-2024 End: 04-03-2024 take 1 tablet by mouth twice daily Sucralfate 1 gram tablet Discontinued 1 GM PO Twice daily January [...] Orally Once a day Active Vitamin D (5 sources) Start: 07-27-2022 Vitamin D Refi lls(s) 0 Start Date: 07/27/22 Status: Ordered Vitamin D3 25 MCG (1000 UT) (20 sources) take 1 capsule by mouth once jagjit ly Vitamin D3 25 MCG (1000 UT) 1 capsule Orally Once a day Active Vitamins A,C,W-Ozct-Glsjkh (Preservision Areds) 4,296 mcg-226 mg-90 mg capsule (14 sources) Start: 01-17-2024 take 1 capsule by mouth twice daily Vitamins A,C,R-Ghom-Estpww (Preservision Areds) 4,296 mcg-226 mg-90 mg capsule Active 1 CAP PO Twice daily January 17, 2024 12:00am Start: 01-17-2024 take 1 capsule by mo uth twice daily Vitamins A,C,C-Izml-Tzowsc (Preservision Areds) 4,296 mcg-226 mg-90 mg capsule [...] tablet (20 sources) Opioid Agonist Start: 07-07-2024 End: 12-23-2024 take 1 tablet by mouth once daily as needed for pain Oxycodone-Acetamino phen 5-325 mg tablet Discontinued 1 TAB PO Daily as needed for pain August 07, 2024 September 10, 2024 8:13am Start: 07-07-2024 Start: 06-07-2024 End: 06-07-2024 take 1 tablet by mouth once daily as needed for pain Oxycodone-Acetaminophen 5-325 mg tablet Discontinued 1 TAB PO Daily as needed for pain June 07, 2024 June 07, 2024 7:30am Start: 06-07-2024 End: 06-07-2024 take 1 tablet by mouth once daily as needed for pain Oxycodone-Acetaminophen 5-325 mg tablet Discontinued 1 TAB PO Daily as needed for pain June 07, 2024 June 07, 2024 7:30am Start: 06-07-2024 End: 06-07-2024 take 1 tablet by mouth once daily as needed for pain Oxycodone-Acetaminophen 5-325 mg tablet Discontinued 1 TAB PO Daily as needed for pain June 07, 2024 June 07, 2024 6:30am Start: 06-07-2024 End: 06-07-2024 take 1 tablet by mouth once daily Oxycodone-Acetaminophen Discontinued 1 TAB PO Daily June 07, 2024 June 07, 2024 7:30am Start: 06-07-2024 End: 06-07-2024 Start: 06-07-2024 End: 06-07-2024 Start: 06-07-2024 End: 06-07-2024 take 1 tablet by mouth once daily Oxycodone-Acetaminophen Discontinued 1 TAB PO Daily June 07, 2024 June 07, 2024 7:30am Start: 06-07-2024 End: 06-07-2024 take 1 tablet by mouth once daily Oxycodone-Acetaminophen Discontinued 1 TAB PO Daily June 07, 2024 June 07, 2024 7:30am Start: 06-07-2024 End: 06-07-2024 take 1 tablet by mouth once daily Oxycodone-Acetaminophen Discontinued 1 TAB PO Daily June 07, 2024 June 07, 2024 7:30am Start: 06-07-2024 End: 06-07-2024 Start: 05-07-2024 End: 06-07-2024 take 1 tablet by mouth once daily as needed for pain Oxycodone-Acetaminophen 5-325 mg tablet Discontinued 1 TAB PO Daily as needed for pain June 05, 2024 June 07, 2024 7:29am Start: 01-04-2024 End: 05-07-2024 take 1 tablet by mouth twice daily as needed for pain Oxycodone-Acetaminophen 5-325 mg tablet Discontinued 1 TAB PO Twice daily as needed for pain 60 January 04, 2024 March 03, 2024 4:30pm [...] joesph twice daily oxyCODONE-Acetaminophen 5-325 MG 1 tablet Orally two times daily for 30 days March, Active Start: 02-02-2023 take 1 tablet by joesph twice daily oxyCODONE-Acetaminophen 5-325 MG 1 tablet Orally two times daily for 30 days Jan, Active Start: 11-30-2022 take 1 tablet by joesph twice daily oxyCODONE-Acetaminophen 5-325 MG 1 tablet Orally two times daily for 30 days Nov, Active Start: 07-27-2022 take 1 tablet by joesph twice daily acetaminophen-oxycodone 325 mg-2.5 mg oral tablet 1 tab(s), Oral, BID, Refill(s) 0 Start Date: 07/27/22 Status: Ordered Start: 06-12-2021 End: 06-19-2021 take 1 tablet by mouth twice daily as needed for pain Oxycodone-Acetaminophen 5-325 mg tablet Discontinued 1 TAB PO Twice daily as needed for Pain June 12, 2021 12:00am June 19, 2021 3:13am Start: 06-12-2021 End: 06-19-2021 [id number] 200 actuat albuterol 0.09 mg/actuat metered dose inhaler (20 sources) beta2-Adrenergic Agonist Start: 10-25-2024 End: 11-03-2024 Albuterol Sulfate 90 mcg/actuation HFA aerosol inhaler Discontinued 2 INH INHALATION Q6H as needed for shortness of breath or wheezing 8 October 25, 2024 1:00am November 03, 2024 12:41pm administer with spacer Start: 01-17-2024 End: 04-03-2024 take 1 puff(s) by inhalation every four hours as needed Albuterol Sulfate 90 mcg/actuation HFA aerosol inhaler Discontinued 2 PUFF INHALATION Every 4 hours as needed January 17, 2024 1:00am April 03, 2024 11:36am Start: 01-17-2024 End: 04-03-2024 Start: 10-18-2023 take 2 puff(s) by in halation every four hours as needed Albuterol Sulfate HFA 108 (90 Base) MCG/ACT 2 puff Inhalation every 4 hrs prn Oct, Active ALPRAZolam 0.25 mg oral tablet (20 sources) Benzodiazepine Start: 06-05-2024 End: 11-10-2024 take 1 tablet by mouth twice daily Alprazolam 0.25 mg tablet Discontinued 0.25 MG PO Twice daily November 03, 2024 1:00am November 10, 2024 11:38am Start: 01-17-2024 End: 03-25-2024 take 1 tablet by mouth twice daily as needed for anxiety Alprazolam 0.25 mg tablet Discontinued 0.25 MG PO Twice daily as needed for anxiety January 30, 2024 12:55pm March 25, 2024 3:46pm Start: 05-30-2023 Start: 05-22-2023 Start: 07-27-2022 End: 01-30-2024 take 1 tablet by mouth three times daily as needed Alprazolam 0.25 mg tablet Discontinued 0.25 MG PO Three times daily as needed January 17, 2024 1:00am January 30, 2024 12:56pm amitriptyline hydrochloride 10 mg oral tablet (12 sources) Tricyclic Antidepressant take 1 tablet by mouth every twenty-four hours Amitriptyline HCl 10 MG 1 tablet at bedtime Orally Once a day Not-Taking amylase 141544 unt / lipase 45883 unt / protease 89901 unt delayed release oral capsule (20 sources) Start: End: Pcsphx-Tjvczyyv-Dne lase (Creon) 24,000-76,000 -120,000 unit capsule,delayed release(DR/EC) Discontinued 1 - 2 CAP PO 1-2 TIMES DAILY June 11, 2021 12:00am June 19, 2021 3:12am Start: 06-11-2021 End: 06-19-2021 Start: 05-10-2021 Creon 24,000 u nits oral delayed release capsule See Instructions, take 3 caps with each meal and 2 caps with each snack., # 390 caplet(s), Refills(s) 0, Pharmacy: [id number], 165.1, cm, 04/18/21 13:02:00 EDT, Height/Length Dosing, 116.4, kg, 04/18/21 13:02:00 EDT, Weight Dosing Start Date: 05/10/21 Status: Ordered bifidobacterium infantis 4 mg oral capsule (20 sources) Start: 06-05-2024 End: 11-03-2024 take 1 capsule by mouth once daily Bifidobacterium Infantis (Align (B.Infantis)) 4 mg capsule Discontinued 4 MG PO Daily June 05, 2024 12:00am November 03, 2024 12:41pm carvedilol 6.25 mg oral tablet (17 sources) alpha-Adrenergic Khadijah, beta-Adrenergic Khadijah Start: 06-12-2021 End: 01-17-2024 take 1 tablet by mouth twice daily at mealtime Carvedilol 6.25 mg Tablet Discontinued 6.25 MG PO Twice daily with meals 60 June 12, 2021 12:00am January 17, 2024 5:18pm cefdinir 300 mg oral capsule (17 sources) Cephalosporin Antibacterial Start: 06-12-2021 End: 01-17-2024 take 1 capsule by mouth twice daily Cefdinir 300 mg capsule Discontinued 300 MG PO Twice daily 10 June 12, 2021 12:00am January 17, 2024 5:18pm cephalexin 500 mg oral capsule (3 sources) Cephalosporin Antibacterial Start: 10-22-2024 End: 11-03-2024 take 1 capsule by mouth twice daily Cephalexin 500 mg capsule Discontinued 500 MG PO Twice daily 14 October 22, 2024 1:00am November 03, 2024 12:41pm ciprofloxacin 250 mg oral tablet (4 sources) Quinolone Antimicrobial Start: 07-21-2024 End: 10-16-2024 take 1 tablet by mouth once daily Ciprofloxacin Hcl 250 mg tablet Discontinued 250 MG PO Daily July 21, 2024 12:00am October 16, 2024 3:27pm dapagliflozin 10 mg oral tablet (20 sources) Sodium-Glucose Cotransporter 2 Inhibitor Start: 01-22-2024 End: 04-03-2024 take 1 tablet by mouth once daily Dapagliflozin Propanediol (Farxiga) 10 mg tablet Discontinued 10 MG PO Daily January 29, 2024 12:00am April 03, 2024 11:42am FARXIGA Active Dapagliflozin Pr opanediol 10 MG 1 tablet once a day Active diclofenac sodium 0.01 mg/mg topical gel (3 sources) Nonsteroidal Anti-inflammatory Drug Start: 10-20-2024 End: 11-03-2024 apply 4 g topically four times daily as needed for pain Diclofenac Sodium 1 % Gel Discontinued 4 GM TOPICAL Four times daily as needed for neck muscle pain October 20, 2024 1:00am November 03, 2024 12:41pm fluconazole 100 mg oral tablet (17 sources) Azole Antifungal Start: 06-12-2021 End: 01-17-2024 take 1 tablet by mouth once daily Fluconazole 100 mg tablet Discontinued 100 MG PO Daily 05 18June 12, 2021 12:00am January 17, 2024 5:18pm Garlic (20 sources) Non-Standardized Food Allergenic Extract Start: 01-17-2024 End: 04-03-2024 take 1 tablet by mouth once daily Garlic 100 mg tablet Discontinued 100 MG PO Daily January 17, 2024 1:00am April 03, 2024 11:47am Start: 01-17-2024 End: 04-03-2024 take 1 tablet by mouth once daily Garlic 100 mg tablet Discontinued 100 MG PO Daily January 17, 2024 12:00am April 03, 2024 10:47am Start: 01-17-2024 End: 04-03-2024 Start: 01-17-2024 End: 04-03-2024 take 100 mg by mouth once daily Garlic Discontinued 10 0 MG PO Daily January 17, 2024 1:00am [...] Insulin) 100 unit/mL (3 mL) Insulin Pen (14 sources) Start: 06-12-2021 End: 01-15-2024 inject 14 [IU] by subcutaneous injection three times daily Insulin Aspart U-100 (Novolog Flexpen U-100 Insulin) 100 unit/mL (3 mL) Insulin Pen Discontinued 1 UNIT SUBCUT Three times daily June 11, 2021 11:00pm January 15, 2024 2:28pm 150-199 mg/dl 3 unit 200-249 mg/dl 4 unit 250-299 mg/dl 7 unit 300-349 mg/dl 10 unit 350-399 mg/dl 12 unit greater than or = 400 mg/dl 14 unit Start: 06-12-2021 End: 01-15-2024 inject 14 [IU] [...] SUBCUT Three times daily January 16, 2024 2:12pm January 24, 2024 12:50pm 150-199 mg/dl 3 unit 200-249 mg/dl 4 unit 250-299 mg/dl 7 unit 300-349 mg/dl 10 unit 350-399 mg/dl 12 unit greater than or = 400 mg/dl 14 unit Start: 01-16-2024 End: 01-24-2024 inject 14 [IU] [...] SUBCUT Three times daily January 15, 2024 2:26pm January 16, 2024 2:13pm Start: 01-15-2024 End: 01-16-2024 inject 1 [IU] by subcutaneous injection three times daily Insulin Aspart U-100 (Novolog Flexpen U-100 Insulin) 100 unit/mL (3 mL) insulin pen Discontinued 1 UNIT SUBCUT Three times daily January 15, 2024 3:26pm January 16, 2024 3:13pm ketorolac tromethamine 5 mg/ml ophthalmic solution (17 sources) Nonsteroidal Anti-inflammatory Drug, Cyclooxygenase Inhibitor Start: 06-11-2021 End: 06-12-2021 Ketorolac 0.5 % drops Discontinued DROPS SOLUTION/ DROPS June 11, 2021 12:00am June 12, 2021 3:16am Start: 06-11-2021 End: 06-12-2021 Ketorolac Discontinued DROPS SOLUTION/ DROPS June 11, 2021 12:00am June 12, 2021 3:16am Start: 06-11-2021 End: 06-12-2021 lisinopril 20 mg oral tablet (20 sources) Angiotensin Converting Enzyme Inhibitor Start: 03-07-2021 End: 05-07-2024 take 1 tablet by mouth once daily Lisinopril 20 mg tablet Discontinued 20 MG PO Daily June 11, [...] a day for 30 day(s) Aug, Not-Taking Metoprolol (20 sources) beta-Adrenergic Khadijah Start: 08-12-2024 End: 10-20-2024 Metoprolol Tartrate 100 mg tablet Discontinued 0 .ROUTE .COMPLEX 270 August 12, 2024 8:28am October 20, 2024 2:15pm TAKE 1 AND 1/2 TABLETS TWICE DAILY Start: 08-12-2024 End: 10-20-2024 Metoprolol Tartrate 100 mg t ablet Discontinued 0 .ROUTE .COMPLEX 270 August 12, 2024 7:28am October 20, 2024 1:15pm TAKE 1 AND 1/2 TABLETS TWICE DAILY Start: 06-07-2024 take 1.5 tablets by mouth in the morning metoprolol tartrate (Lopressor) 100 MG tablet Take 1.5 tablets by mouth in the morning and 1.5 tablets before bedtime. 06/07/2024 Active Start: 05-27-2024 End: 08-12-2024 Metoprolol Tartrate 100 mg t ablet Discontinued 0 .ROUTE .COMPLEX 270 June 07, 2024 7:28am August 12, 2024 8:28am TAKE 1 AND 1/2 TABLETS TWICE DAILY Start: 05-27-2024 End: 06-07-2024 Metoprolol Tartrate Active 0 .ROUTE .COMPLEX 270 June 07, 2024 7:28am TAKE 1 AND 1/2 TABLETS TWICE DAILY Start: 02-19-2024 End: 05-27-2024 Metoprolol Tartrate 100 mg t ablet Discontinued 0 .ROUTE .COMPLEX 270 February 19, 2024 2:51pm May 27, 2024 3:55pm TAKE 1 AND 1/2 TABLETS TWICE DAILY Start: 02-19-2024 End: 05-27-2024 Metoprolol Tartrate 100 mg t ablet Discontinued 0 .ROUTE .COMPLEX 270 February 19, 2024 1:51pm May 27, 2024 2:55pm TAKE 1 AND 1/2 TABLETS TWICE DAILY Start: 02-19-2024 End: 05-27-2024 Metoprolol Tartrate Disconti nued 0 .ROUTE .COMPLEX 270 February 19, 2024 2:51pm May 27, 2024 3:55pm TAKE 1 AND 1/2 TABLETS TWICE DAILY Start: 02-19-2024 Metoprolol Tar trate Active 0 .ROUTE .COMPLEX 270 February 19, 2024 2:51pm TAKE 1 AND 1/2 TABLETS TWICE DAILY Start: 02-19-2024 End: 02-19-2024 take 1 tablet by mouth twice daily Metoprolol Tartrate 100 mg tablet Discontinued 100 MG PO Twice daily February 19, 2024 12:00am February 19, 2024 2:51pm Start: 07-27-2022 metoprolol tar trate 100 mg Tab 150 mg = 1.5 tab(s), Oral, BID, Refills(s) 0 Start Date: 07/27/22 Status: Ordered Start: 06-19-2021 End: 01-17-2024 take 1 tablet by mouth once daily Metoprolol Tartrate 100 mg tablet Discontinued 100 MG PO Daily June 19, 2021 12:00am January 17, 2024 5:18pm Start: 06-19-2021 End: 01-17-2024 take 1 tablet by joesph th every twenty-four hours nystatin [id number] unt/ml topical cream (20 sources) Polyene Antifungal [...] and swallow Start: 01-17-2024 End: 07-16-2024 Nystatin 100,000 unit/gram c ream Discontinued 1 APPLIC TOPICAL Twice daily as needed June 05, 2024 12:06pm July 16, 2024 10:36am Start: 01-17-2024 End: 07-16-2024 nystatin (Mycostatin) cream Apply 1 application topically if needed 06/05/2024 Active Nystatin [id number] UNIT/GM 1 application Externally Twice a day for 10 days Active Nystatin [id number] UNIT/GM 1 application Externally Twice a day for 10 days Active nystatin 400016 unt/ml / triamcinolone acetonide 1 mg/ml topical cream (7 sources) Polyene Antifungal, Corticosteroid Start: 07-07-2024 End: 11-03-2024 Nystatin-Triamcinolone 100,000-0.1 unit/g-% cream Discontinued 1 APPLIC TOPICAL Twice daily 15 July 07, 2024 12:00am November 03, 2024 12:41pm Start: 07-07-2024 Nystatin 100,000 unit/mL suspension (3 sources) Start: 04-29-2024 End: 06-05-2024 take 1 mL by mouth three times daily Nystatin 100,000 unit/mL suspension Discontinued 1 ML PO Three times daily 60 April 29, 2024 12:00am June 05, 2024 12:06pm swish and swallow Start: 04-29-2024 End: 06-05-2024 take 1 mL by mouth three times daily Nystatin 100,000 unit/mL suspension Discontinued 1 ML PO Three times daily 60 April 28, 2024 11:00pm June 05, 2024 11:06am swish and swallow [place] 1-Waw-Qvp-Fish Oil (Fish Oil) 1,000 mg (120 mg-180 mg) capsule (14 sources) Start: 01-17-2024 End: 04-03-2024 take 1 capsule by mouth once daily [place] 1-Aeg-Tjn-Fish Oil (Fish Oil) 1,000 mg (120 mg-180 mg) capsule Discontinued 1 CAP PO Daily January 17, 2024 12:00am April 03, 2024 10:49am Start: 01-17-2024 End: 04-03-2024 take 1 capsule by mouth once daily [place] 6-Kne-Akx-Fish Oil (Fish Oil) 1,000 mg (120 mg-180 mg) capsule Discontinued 1 CAP PO Daily January 17, 2024 1:00am April 03, 2024 11:49am Start: 01-17-2024 take 1 capsule by mo [facility] once daily [place] 7-Bfi-Ytq-Fish Oil (Fish Oil) 1,000 mg (120 mg-180 mg) capsule Active 1 CAP PO Daily January 17, 2024 1:00am 24 hr oxybutynin chloride 10 mg extended release oral tablet (17 sources) Cholinergic Muscarinic Antagonist Start: 02-15-2024 End: 06-05-2024 take 1 tablet by mouth once daily Oxybutynin Chloride 10 mg tablet extended release 24hr Discontinued 10 MG PO Daily February 15, 2024 12:00am June 05, 2024 12:07pm selenomethionine 0.2 mg oral tablet (17 sources) Start: 01-17-2024 End: 04-03-2024 take 1 tablet by mouth once daily Selenomethionine 200 mcg tablet Discontinued 200 MCG PO Daily January 17, 2024 1:00am April 03, 2024 11:51am sodium chloride 0.111 meq/ml nasal spray (3 sources) Start: 10-25-2024 End: 11-03-2024 Sodium Chloride (Nasal Preston (Sodium Chloride)) 0.65 % aerosol,spray Discontinued 1 SPRAY INTRANASAL Twice daily as needed for nasal congestion 44 5 October 25, 2024 1:00am November 03, 2024 12:41pm spironolactone 50 mg oral tablet (20 sources) Aldosterone Antagonist Start: 03-28-2024 End: 07-16-2024 take 1 tablet by mouth once daily Spironolactone 50 mg tablet Discontinued 50 MG PO Daily June 05, 2024 12:00am July 16, 2024 10:38am Start: 01-17-2024 End: 05-07-2024 take 1 tablet by mouth once daily Spironolactone 25 mg tablet Discontinued 25 MG PO Daily January 17, 2024 1:00am May 07, 2024 12:01pm take 1 tablet by [facility] every twenty-four hours Spironolactone 25 MG 1 tablet Orally Once a day Active 24 hr venlafaxine 37.5 mg extended release oral capsule (17 sources) Serotonin and Norepinephrine Reuptake Inhibitor Start: 06-11-2021 End: 01-17-2024 take 1 capsule by mouth once daily Venlafaxine 37.5 mg capsule,extended release 24hr Discontinued 37.5 MG PO Daily June 11, 2021 12:00am January 17, 2024 5:18pm Problems Active Problems Problem Classification Problem Date Documented Date Episodic/Chronic Abdominal pain (4 sources) Epigastric pain 08-06-2022 Episodic Acquired foot deformities (12 sources) Acquired hammer toe of right foot; Translations: [Other hammer toe(s) (acquired), right foot] Onset: 4 07-03-2024 Chronic Acute and unspecified renal failure (20 sources) Acute kidney failure, unspecified; Translations: [Acute renal failure syndrome] Onset: 4 Episodic Anxiety disorders (20 sources) Anxiety; Translations: [Anxiety disorder, unspecified] Onset: 4 01-30-2024 Chronic Cardiac dysrhythmias (20 sources) Atrial fibrillation; Translations: [Paroxysmal atrial fibrillation] Onset: 2 07-27-2022 Chronic Cardiac dysrhythmias (13 sources) Bradycardia, unspecified; Translations: [Bradycardia] Onset: 4 Episodic Chronic kidney disease (20 [...] Coronary arteriosclerosis; Translations: [Atherosclerotic heart disease of [place] coronary artery without angina pectoris] Onset: 2 [...] 2 07-27-2022 Chronic Diabetes mellitus without complication (17 sources) Hyperglycemia; Translations: [Hyperglycemia, unspecified] 06-12-2021 Episodic [...] 2 07-27-2022 Chronic Fluid and electrolyte disorders (17 sources) Dehydration; Translations: [Hypokalemia] Onset: 3 Episodic Genitourinary symptoms and ill-defined conditions (20 sources) Genuine stress incontinence; Translations: [Stress incontinence (female) (male)] Onset: 4 Resolved: 4 Chronic Genitourinary symptoms and ill-defined conditions (20 sources) Dysuria; Translations: [Dysuria] Onset: 4 07-17-2024 Episodic Heart valve disorders (12 sources) Aortic valve disorder; Translations: [Nonrheumatic aortic valve disorder, unspecified] Onset: 2 07-03-2024 Chronic Hypertension with complications and secondary hypertension (20 sources) Chronic kidney disease due to hypertension; Translations: [Hypertensive chronic kidney disease with stage 1 through stage 4 chronic kidney disease, or unspecified chronic kidney disease] Onset: 3 Chronic Immunizations and screening for infectious disease (20 sources) Immunization due; Translations: [Encounter for immunization] 01-18-2024 Episodic Inflammation; infection of eye (except that caused by tuberculosis or sexually transmitteddisease) (20 sources) External hordeolum; Translations: [Hordeolum externum unspecified eye, unspecified eyelid] Onset: 4 01-18-2024 Episodic Intestinal infection (5 sources) Enterocolitis due to Clostridium difficile, not specified as recurrent; Translations: [Clostridium difficile diarrhea] Episodic Menopausal disorders (1 source) Hormone replacement therapy; Translations: [HORMONE REPLACEMENT THERAPY] Onset: 3 Episodic Mood disorders (17 sources) Depressive disorder; Translations: [Depressive disorder] Onset: 3 07-27-2022 Chronic Mycoses (20 sources) Candidiasis of skin and nail; Translations: [Monilial cystitis] Onset: 4 Resolved: 4 Episodic Nonspecific chest pain (4 sources) Other chest pain; Translations: [OTHER CHEST PAIN] Onset: 3 Episodic Nutritional deficiencies (5 sources) Vitamin D deficiency; Translations: [Vitamin D deficiency, unspecified] Chronic Nutritional deficiencies (1 source) Deficiency of other specified B group vitamins Episodic Occlusion or stenosis of precerebral arteries (12 sources) Carotid artery stenosis; Translations: [Occlusion and stenosis of unspecified carotid artery] Onset: 2 07-03-2024 Chronic Osteoarthritis (20 sources) Osteoarthritis of right knee joint; Translations: [Unilateral primary osteoarthritis, right knee] Onset: 1 Resolved: 1 Chronic Other aftercare (20 sources) Long-term current use of insulin; Translations: [intermission coordinator (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 insulin] Onset: 4 Resolved: 4 01-17-2024 Episodic Other aftercare (5 sources) [facility] (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 insulin; Translations: [SOFTWARE RECRUITER CURRENT USE OF INSULIN] Onset: 3 Episodic Other aftercare (1 source) Other exterminator 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) drug therapy; Translations: [OTH SOFTWARE RECRUITER CURRENT DRUG THERAPY] Onset: 3 Episodic Other aftercare (1 source) [facility] (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 anticoagulants; Translations: [HALFWAY CURRNT USE 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] Onset: 3 Episodic Other and ill-defined heart disease (1 source) Other ill-defined heart diseases; Translations: [OTHER ILL-DEFINED HEART DISEASES] Onset: 3 Chronic Other and ill-defined heart disease (12 sources) Diastolic dysfunction; Translations: [Other ill-defined heart diseases] Onset: 2 07-03-2024 Chronic Other circulatory disease (1 source) Disorder of arteries and arterioles, unspecified; Translations: [DISORDER ARTERIES AND ARTERIOLES UNS] Onset: 3 Chronic Other circulatory disease (3 sources) Elevated blood pressure; Translations: [Elevated blood-pressure reading, without diagnosis of hypertension] 11-02-2024 Episodic Other diseases of kidney and ureters (20 sources) Secondary hyperparathyroidism; Translations: [Secondary hyperparathyroidism of renal origin] Onset: 4 01-17-2024 Chronic Other diseases of kidney and ureters (17 sources) Secondary hyperparathyroidism of renal origin; Translations: [Secondary hyperparathyroidism (of renal origin)] 03-25-2024 Chronic Other diseases of veins and lymphatics (20 sources) Lymphedema; Translations: [Lymphedema, not elsewhere classified] Onset: 4 01-17-2024 Chronic Other diseases of veins and lymphatics (12 sources) Lymphedema of left upper limb; Translations: [Lymphedema, not elsewhere classified] Onset: 2 07-03-2024 Chronic Other eye disorders (17 sources) Chalazion; Translations: [Chalazion right eye, unspecified [...] UNSPECIFIED] Onset: 2 Episodic Other gastrointestinal disorders (20 sources) Swollen abdomen; Translations: [Generalized intra-abdominal and pelvic swelling, mass and lump] Onset: 4 05-07-2024 Episodic Other gastrointestinal disorders (14 sources) Generalized intra-abdominal and pelvic swelling, mass and lump; Translations: [Abdominal or pelvic swelling, mass, or lump, generalized] 05-07-2024 Episodic Other gastrointestinal disorders (3 sources) Abdominal bloating; Translations: [Abdominal distension (gaseous)] 12-10-2024 Episodic Other gastrointestinal disorders (5 sources) Abdominal distension (gaseous); Translations: [Flatulence, eructation, and gas pain] 12-09-2024 Episodic Other hereditary and degenerative nervous system conditions (16 sources) Essential tremor; Translations: [Essential tremor] Onset: 4 07-08-2024 Chronic Other hereditary and degenerative nervous system conditions (2 sources) Essential tremor; Translations: [Essential and other specified forms of tremor] 12-26-2024 Chronic Other inflammatory condition of skin (12 sources) Psoriasis; Translations: [Psoriasis, unspecified] Onset: 2 07-03-2024 Chronic Other inflammatory condition of skin (2 sources) Seborrheic dermatitis of scalp; Translations: [Seborrhea capitis] 01-06-2025 Episodic Other inflammatory condition of skin (2 sources) Seborrhea capitis; Translations: [Other seborrheic dermatitis] 12-26-2024 Episodic Other lower respiratory disease (20 sources) Dyspnea; Translations: [Dyspnea, unspecified] Onset: 4 06-12-2021 Episodic Other nervous system disorders (12 sources) Walking disability; Translations: [Difficulty in walking, not elsewhere classified] Onset: 4 07-03-2024 Chronic Other nervous system disorders (8 sources) Tremor, unspecified; Translations: [Abnormal involuntary movements] Episodic Other nervous system disorders (20 sources) Tremor; Translations: [Tremor, unspecified] Onset: 4 06-16-2024 Episodic Other nutritional; endocrine; and metabolic disorders (20 sources) Body mass index 40+ - severely obese; Translations: [Morbid (severe) obesity due to excess calories] 08-06-2022 Chronic Other nutritional; endocrine; and metabolic disorders (4 sources) Morbid (severe) obesity due to excess calories; Translations: [Severe obesity (BMI >= 40) E66.01] Onset: 1 Resolved: 1 Chronic Other nutritional; endocrine; and metabolic disorders (20 sources) Hypomagnesemia; Translations: [Hypomagnesemia] Onset: 3 07-27-2022 [...] nutritional; endocrine; and metabolic disorders (20 sources) Intolerance to lactose; Translations: [Lactose intolerance, unspecified] Onset: 4 Resolved: 4 01-17-2024 Chronic Other nutritional; endocrine; and metabolic disorders (12 sources) Intestinal disaccharidase deficiency; Translations: [Lactose intolerance, unspecified] Onset: 2 07-03-2024 Chronic Other nutritional; endocrine; and metabolic disorders (12 sources) Morbid obesity; Translations: [Morbid (severe) obesity due to excess calories] Onset: 2 07-03-2024 Chronic Other nutritional; endocrine; and metabolic disorders (2 sources) Hypomagnesemia; Translations: [Disorders of magnesium metabolism] Onset: 4 10-20-2024 Chronic Other nutritional; endocrine; and metabolic disorders (20 sources) Loss of appetite; Translations: [Anorexia] Episodic Other skin disorders (13 sources) Localized swelling, mass and lump, right upper limb; Translations: [Mass of right axilla] 07-07-2024 Episodic Other upper respiratory infections (20 sources) Pharyngitis; Translations: [Acute pharyngitis, unspecified] Onset: 4 Resolved: 4 06-25-2024 Episodic Pulmonary heart disease (1 source) Pulmonary hypertension, unspecified; Translations: [PULMONARY HYPERTENSION UNSPECIFIED] Onset: 3 Chronic Residual codes; unclassified (20 sources) Obstructive sleep apnea syndrome; Translations: [Obstructive sleep apnea (adult) (pediatric)] Onset: 2 07-03-2024 Chronic Residual codes; unclassified (2 sources) Obstructive sleep apnea (adult) (pediatric); Translations: [Obstructive sleep apnea (adult) (pediatric)] Onset: 2 Chronic Residual codes; unclassified (1 source) Acquired [...] Translations: [Other amnesia] Onset: 4 01-17-2024 Episodic Residual codes; unclassified (1 source) Other amnesia Episodic Residual codes; unclassified (1 source) Other specified postprocedural states; Translations: [Other specified postprocedural states] Onset: 4 Episodic Residual codes; unclassified (2 sources) Disorientation, unspecified; Translations: [Other alteration of consciousness] Onset: 4 10-20-2024 Episodic Residual codes; unclassified (3 sources) Delirium; Translations: [Disorientation, unspecified] 10-28-2024 Episodic Retinal detachments; defects; vascular occlusion; and retinopathy (20 sources) Unspecified macular degeneration; Translations: [Degenerative disorder [...] [Post-surgery back pain] Onset: 3 07-27-2022 Episodic Syncope (20 sources) Near syncope; Translations: [Syncope and collapse] Onset: 4 06-19-2021 Episodic Thyroid disorders (20 sources) Hypothyroidism; Translations: [Hypothyroidism, unspecified] Onset: 3 07-27-2022 Chronic Unclassified (1 source) CONTACT W/AND (SUSP) EXPOS COVID-19; Translations: [CONTACT W/AND (SUSP) EXPOS COVID-19] Onset: 3 Unclassified (1 source) Low back pain, unspecified; Translations: [Low back pain, unspecified] Onset: 4 Urinary tract infections (20 sources) Urinary tract infectious disease; Translations: [Urinary tract infection, site not specified] Onset: 4 Resolved: 4 05-07-2024 Episodic Viral infection (3 sources) Disease caused by 2019-nCoV; Translations: [COVID-19] 10-25-2024 Episodic Past or Other Problems Problem Classification Problem Date Documented Da te Episodic/Chronic Cancer of breast (18 sources) History of malignant neoplasm of breast; Translations: [Personal history of malignant neoplasm of breast] Onset: 2 07-27-2022 Episodic Malaise and fatigue (20 sources) Weakness; Translations: [Asthenia] Onset: 4 Episodic Noninfectious gastroenteritis (20 sources) Chronic diarrhea; Translations: [Noninfective gastroenteritis and colitis, unspecified] Onset: 3 07-27-2022 Episodic Other circulatory disease (17 sources) Carotid bruit; Translations: [Other specified symptoms and signs involving the circulatory and respiratory systems] Onset: 3 07-27-2022 Episodic Other circulatory disease (10 sources) Tightness in throat; Translations: [Other specified symptoms and signs involving the circulatory and respiratory systems] Onset: 4 07-22-2024 Episodic Other connective tissue disease (2 sources) Repeated falls; Translations: [Repeated falls] Onset: 4 Episodic Other diseases of veins and lymphatics (12 sources) Peripheral venous insufficiency; Translations: [Venous insufficiency (chronic) (peripheral)] Onset: 4 07-03-2024 Episodic Other eye disorders (12 sources) Chalazion of right eyelid; Translations: [Chalazion right eye, unspecified eyelid] Onset: 4 07-03-2024 Episodic Other lower respiratory disease (4 sources) Shortness of breath; Translations: [SHORTNESS OF BREATH] Onset: 3 Episodic Other nervous system disorders (14 sources) Impairment of balance; Translations: [Other abnormalities of gait and mobility] Onset: 4 07-08-2024 Episodic Other nervous system disorders (12 sources) Ataxia; Translations: [Ataxia, unspecified] Onset: 4 07-08-2024 Episodic Other nervous system disorders (20 sources) Paresthesia; Translations: [Paresthesia of skin] Onset: 4 07-08-2024 Episodic Other nervous system disorders (13 sources) Sensory ataxia ; Translations: [Other lack of coordination] Onset: 4 07-10-2024 Episodic Other nervous system disorders (2 sources) Other abnormalities of gait and mobility; Translations: [Other abnormalities of gait and mobility] Onset: 4 Episodic Other non-traumatic joint disorders (12 sources) Pain in left shoulder; Translations: [Pain in joint, shoulder region] Onset: 4 Resolved: 4 07-03-2024 Episodic Pancreatic disorders (not diabetes) (17 sources) Exocrine pancreatic insufficiency; Translations: [Exocrine pancreatic [...] Range Facility Basophils Auto (Bld) [#/Vol] on 12-04-2024 Basophils (Bld) [#/Vol] Automated basophil count 0.0-0.[address] [facility] Basophils/100 WBC Auto (Bld) on 12-04-2024 Basophils/100 WBC (Bld) Automated basophil % 0.2-2.0 [facility] Eosinophils/100 WBC Auto (Bl d)on 12-04-2024 Eosinophils/100 WBC (Bld) Automated eosinophil % 0.9-7.0 [facility] Erythrocyte distribution wid th Auto (RBC) [Ratio]on 12-04-2024 Erythrocyte distribution width (RBC) [Ratio] Erythrocyte distribution width [Ratio] by Automated count 11.0-15.0 [facility] Estimated glomerular filtrat ion rate (GFR) non- Americanon 12-04-2024 GFR/1.73 sq M.predicted among non-blacks MDRD (S/P/Bld) [Vol rate/Area] Estimated glomerular filtration rate (GFR) non- Low >=60 mL/min/1.73 m 2 [facility] Globulin Calc (S) [Mass/Vol] on 12-04-2024 Globulin (S) [Mass/Vol] Serum globulin measurement by calculation (mass/volume) [facility] Hematocrit Auto (Bld) [Volum e fraction]on 12-04-2024 Hematocrit (Bld) [Volume fraction] Hematocrit [Volume Fraction] of Blood by Automated count 36.0-48.0 [facility] Hemoglobin [Mass/volume] in Bloodon 12-04-2024 Hemoglobin (Bld) [Mass/Vol] Hemoglobin [Mass/volume] in Blood Low 12.0-16.0 [facility] INR in Platelet poor plasma by Coagulation assayon 12-04-2024 INR Coag (PPP) [Relative time] INR in Platelet poor plasma by Coagulation assay [facility] Comment on above: DESIRED INR:2.0-3.0 CONDITIONS NOT LISTED BELOW2.5-3.5 FOR PROSTHETIC HEART VALVE REPLACEMENT2.5-3.5 RECURRENT THROMBOSIS Laboratory - Chemistry and C hemistry - challengeon 12-04-2024 Albumin [Mass/Vol] 2.7 g/dL Low 3.4-5.0 [facility] ALP [Catalytic activity/Vol] 111 U/L 46-116 [facility] ALT [Catalytic activity/Vol] 19 U/L 14-59 [facility] AST [Catalytic activity/Vol] 16 U/L 15-37 [facility] Bilirubin [Mass/Vol] 0.6 mg/dL 0.2-1.0 [facility] Calcium [Mass/Vol] 8.7 mg/dL 8.5-10.1 [facility] Chloride [Moles/Vol] 101 mmol/L 98-107 [facility] CO2 [Moles/Vol] 29.9 mmol/L 21.0-32.0 [facility] Creatinine [Mass/Vol] 1.24 mg/dL High 0.55-1.[address] [facility] GFR/1.73 sq M.predicted MDRD (S/P/Bld) [Vol rate/Area] 51 mL/min/{1.73_m2} Low >=60 mL/min/1.73 m 2 [facility] Glucose [Mass/Vol] 310 mg/dL High 74-106 [facility] Natriuretic peptide B (Bld) [Mass/Vol] 3884.0 pg/mL Critically high <=1800.0 [facility] Comment on above: RESULTS CALLED TO MAIK RANGEL RN Potassium [Moles/Vol] 4.3 mmol/L 3.5-5.[address] [facility] Protein [Mass/Vol] 7.0 g/dL 6.4-8.2 [facility] Sodium [Moles/Vol] 138 mmol/L 136-145 [facility] Urea nitrogen [Mass/Vol] 28.0 mg/dL High 7.0-18.0 [facility] Urea nitrogen/Creatinine [Mass ratio] 22.6 mg/mg [facility] Laboratory - Hematology and Cell countson 12-04-2024 Immature granulocytes/100 WBC (Bld) 0.2 % 0.0-0.5 [facility] Leukocytes [#/volume] correc gali for nucleated erythrocytes in Blood by Automated counon 12-04-2024 WBC corrected for nucl RBC Auto (Bld) [#/Vol] Leukocytes [#/volume] corrected for nucleated erythrocytes in Blood by Automated coun 4.0-11.0 [facility] Lymphocytes Auto (Bld) [#/Vo l]on 12-04-2024 Lymphocytes (Bld) [#/Vol] Lymphocytes [#/volume] in Blood by Automated count 1.2-3.8 [facility] Lymphocytes/100 WBC Auto (Bl d)on 12-04-2024 Lymphocytes/100 WBC (Bld) Lymphocytes/100 leukocytes in Blood by Automated count Low 20.5-60.0 [facility] MCH Auto (RBC) [Entitic mass ]on 12-04-2024 MCH (RBC) [Entitic mass] MCH [Entitic mass] by Automated count 26.7-34.0 [facility] MCHC Auto (RBC) [Mass/Vol]on 12-04-2024 MCHC (RBC) [Mass/Vol] MCHC [Mass/volume] by Automated count 29.9-35.2 [facility] MCV Auto (RBC) [Entitic vol] on 12-04-2024 MCV (RBC) [Entitic vol] MCV [Entitic volume] by Automated count 81.0-99.0 [facility] Monocytes Auto (Bld) [#/Vol] on 12-04-2024 Monocytes (Bld) [#/Vol] Automated blood monocyte count 0.3-0.8 [facility] Monocytes/100 WBC Auto (Bld) on 12-04-2024 Monocytes/100 WBC (Bld) Automated monocyte % 1.7-12.0 [facility] Neutrophils Auto (Bld) [#/Vo l]on 12-04-2024 Neutrophils (Bld) [#/Vol] Neutrophils [#/volume] in Blood by Automated count 1.4-6.5 [facility] Neutrophils/100 WBC Auto (Bl d)on 12-04-2024 Neutrophils/100 WBC (Bld) Automated neutrophil % 43.0-75.0 [facility] No Panel Informationon 12-04 Eosinophils # (Auto) 0.1 10 3/uL 0.0-0.[address] [facility] Immature Granulocyte # (Auto) 0.02 10 3/uL 0.00-0.03 [facility] Troponin I High Sensitivity 19.6 pg/mL 4.0-51.3 [facility] Comment on above: CUT-OFF POINTS HAVE BEEN [...] mean volume Auto (B ld) [Entitic vol]on 12-04-2024 Platelet mean volume (Bld) [Entitic vol] Platelet mean volume [Entitic volume] in Blood by Automated count 9.5-13.5 [facility] Platelets Auto (Bld) [#/Vol] on 12-04-2024 Platelets (Bld) [#/Vol] Platelets [#/volume] in Blood by Automated count 150-450 [facility] Prothrombin time (PT)on 11-13 PT Coag (PPP) [Time] Prothrombin time (PT) High 9.0- 11.6 [facility] RBC Auto (Bld) [#/Vol]on RBC (Bld) [#/Vol] Erythrocytes [#/volu me] in Blood by Automated count Low 4.20-5.40 [facility] Serum or plasma albumin/glob ulin mass ratioon 12-04-2024 Albumin/Globulin [Mass ratio] Serum or plasma albumin/globulin mass ratio [facility] Serum or plasma anion gap de terminationon 12-04-2024 Anion gap [Moles/Vol] Serum or plasma an ion gap determination [facility] Office Visiton 12-02-2024 Follow-up visit [id number] Joe Call 1945 F Date Provider Department Center 12/02/2024 [id number] LUNA LOVE [facility] Family History Problem Relation Age of Onset Coronary artery disease Other Diabetes Other Polycystic kidney disease Other Family Status - Relation Status Age at Other Level of Service:05253 [place] OFFICE/OUTPATIENT ESTABLISHED MOD MDM 30 MIN Reason for Visit and Comments: Atrial Fibrillation [80] Congestive Heart Failure [127] - Had BMP 3 weeks ago. Taking lasix PRN. Hypertension [384079] Bradycardia [494310] Normal [facility] 36on 11-18-2024 36 Regarding lab result s from 11/03/2024: MD Brooke Sawyer MA Creatinine appears to be better. Patient's made aware. [facility] Ambulatory Visit Summaryon 0 11-13-2024 Ambulatory Visit Summary Ambulatory Visit Summary JOE CALL :1945 Visit Date:11/13/2024 Ambulatory Visit Instructions Your Diagnosis Urine retention Your Care Team Attending Physician - FRANCHESCA PERAZA PA-C Primary Care Physician - SHANTEL STEVEN MD This Is Your Medications List acetaminophen-oxycodone (acetaminophen-oxycodone 325 mg-2.5 mg oral tablet) alprazolam (alprazolam 0.25 mg Tab) atorvastatin cholestyramine (Questran 4 g/9 g oral powder) cyanocobalamin (B-12) diltiazem (diltiazem 120 mg oral capsule, extended release) ergocalciferol (Vitamin D) furosemide (Lasix 20 mg Tab) insulin glargine (Lantus Solostar Pen) metoprolol (metoprolol tartrate 100 mg Tab) multivitamin with minerals (PreserVision AREDS) pancrelipase (Creon 24,000 units oral delayed release capsule) pantoprazole (Pantoprazole [address] Tab) rivaroxaban (Xarelto 20 mg oral tablet) Procedures Performed Colonoscopy (03/2019), Bilateral mastectomy (1992), Cardiac catheterization, Cardiac catheterization, Cholecystectomy, Colonoscopy, Decompression laminectomy, EGD - Esophagogastroduodenosco py, Excision of iliac lymph nodes, Facetectomy of vertebra, Foraminotomy, History of shoulder surgery, History of sigmoid colectomy, NEGRA BSO - Total abdominal hysterectomy and bilateral salpingo-oophorectomy. What to do next Scheduled Follow-Up Appointments Sunday 11:40 AM EST With: FRANCHESCA PERAZA PA-C Where: [facility] [address] [place] [address] [place] [address] 11:20 AM EST With: FRANCHESCA PERAZA PA-C Where: [facility] [address] [place] [address] [place] [address]- Medications What How Much When Why Instructions Unchanged acetaminophen-oxycodone (acetaminophen-oxycodone 325 mg-2.5 mg oral tablet) 1 Tablets By Mouth 2 times a day Unchanged alprazolam (alprazolam 0.25 mg Tab) 1 Tablets By Mouth 3 times a day as needed for as needed for anxiety Unchanged atorvastatin 20 Milligram By Mouth Every day Unchanged cholestyramine (Questran 4 g/ 9 g oral powder) 1 Packets By Mouth Every day Chronic diarrhea Unchanged cyanocobalamin (B-12) Unchanged diltiazem (diltiazem 120 mg oral capsule, extended release) 1 Capsules By Mouth Every day Unchanged ergocalciferol (Vitamin D) Unchanged furosemide (Lasix 20 mg Tab) 1 Tablets By Mouth Every day Unchanged insulin glargine (Lantus Solostar Pen) 35 Units Subcutaneous Once a day (at bedtime) Unchanged metoprolol (metoprolol tartrate 100 mg Tab) 1.5 Tablets By Mouth 2 times a day Unchanged multivitamin with minerals (PreserVision AREDS) Unchanged pancrelipase (Creon 24,000 units oral delayed release capsule) See instructions take 3 caps with each meal and 2 caps with each snack. Unchanged pantoprazole (Pantoprazole [address] Tab) 1 Tablets By Mouth Every day Unchanged rivaroxaban (Xarelto 20 mg oral tablet) 1 Tablets By Mouth Once a day (in the evening) Allergies contrast media (iodine-based) (Unknown) shellfish (Rash) sulfa drugs (Diarrhea) Problems Ongoing - Any problem that you are currently receiving treatment for. A-fib BMI 40.0-44.9, adult Chronic diarrhea Chronic low back pain CKD stage 3 secondary to diabetes Depression Diabetes Diabetic neuropathy Epigastric pain Exocrine pancreatic insufficiency GERD (gastroesophageal reflux disease) History of breast cancer HTN (hypertension) Hypercholesteremia Hyperlipidemia Hypomagnesemia Hypothyroidism Left carotid bruit Stress incontinence Urine retention Patient Survey You may receive a survey via text or e-mail asking about your office visit. Please share your experience with us by completing your survey. We appreciate your feedback and thank you for choosing us for your care. Normal [facility] Estimated glomerular filtrat ion rate (GFR) non- Americanon 11-10-2024 GFR/1.73 sq M.predicted among non-blacks MDRD (S/P/Bld) [Vol rate/Area] Estimated glomerular filtration rate (GFR) non- Low >=60 mL/min/1.73 m 2 [facility] Laboratory - Chemistry and C hemistry - challengeon 11-10-2024 Albumin [Mass/Vol] 3.0 g/dL Low 3.4-5.0 [facility] Calcium [Mass/Vol] 8.5 mg/dL 8.5-10.1 [facility] Chloride [Moles/Vol] 99 mmol/L 98-107 [facility] CO2 [Moles/Vol] 26.2 mmol/L 21.0-32.0 [facility] Creatinine [Mass/Vol] 2.00 mg/dL High 0.55-1.[address] [facility] GFR/1.73 sq M.predicted MDRD (S/P/Bld) [Vol rate/Area] 29 mL/min/{1.73_m2} Low >=60 mL/min/1.73 m 2 [facility] Glucose [Mass/Vol] 424 mg/dL High 74-106 [facility] Potassium [Moles/Vol] 4.5 mmol/L 3.5-5.[address] [facility] Sodium [Moles/Vol] 136 mmol/L 136-145 [facility] Urea nitrogen [Mass/Vol] 58.0 mg/dL High 7.0-18.0 [facility] Urea nitrogen/Creatinine [Mass ratio] 29.0 mg/mg [facility] No Panel Informationon 11-10 Phosphorus Level 3.6 mg/dL 2.6-4.7 [facility] Serum or plasma anion gap de terminationon 11-10-2024 Anion gap [Moles/Vol] Serum or plasma an ion gap determination [facility] Urology Office/Clinic Noteon 11-04-2024 Urology Office/Clinic Note Urology Office/Clinic Note Chief Complaint Hospital follow up HPI Staff Pt. did see Dr. Gallardo about 20 years ago Admitted [facility] 10/16 after going to ER for weakness/SOB and found to have HR 23. Treated w temporary pacer. high K 6.3 Beta blockers were held. HR improved. Potassium improved. Had CARMELO on CKD. After in the hospital a few days was found to have urinary retention (625ml per hospitalist progress note, 650ml per nephro progress note, >700ml per dc note. I cannot find nursing note of the bladder scan anywhere on [facility] system or output volume once peacock placed). /pt state she was NOT having trouble urinating. She was bedridden due to the pacer and the staff was using a PureWick, but they think she was voiding too much for the PureWick to handle/starting to get skin breakdown so they think that is why the peacock was placed. Peacock placed and remained at hospital wy, no void trial attempted. Dc'd 10/20. Urine cx 10/22 neg. Has been having a lot of pain and discomfort from the peacock. Not tolerating it well. Follows w nephrology for CKD. Transition Assistant 10/25/24 1.31 compared to 3.06 on 10/20/24 (dc) and 2.14 (admission) Pt. states before having catheter she would have some stress incontinence, Pt. will use 2-4 pads a day. Denies any hx of urinary retention. Says the only times she has had a cath were w surgeries. Review of Systems no fever, chills, malaise, myalgia. no rash/lesions. no chest pain, palpitations, or SOB. no abdominal pain, nausea, vomiting. Physical Exam Vitals & Measurements HT: 65 in HT: 164 cm WT: 110 kg WT: 242.508 lb BMI: 40.9 General: nontoxic, NAD Mouth: moist mucosa Lungs: normal respiratory effort Cardio: regular rate, good distal perfusion Abdomen: nondistended, no suprapubic distention or tenderness, no CVA tenderness Neurologic: Grossly normal Skin: No rashes or suspicious lesions Assessment/Plan 1. Urine retention (R33.9: Retention of urine, unspecified) No hx. Conflicting stories re recent hospital admission - pt/ don't think she was having trouble voiding & I can't find documentation of PVR or output w peacock placement, however retention 625-700ml documented in hospitalist/nephro notes. Pt would like peacock removed today and attempt void trial. Peacock removed IO. (1) She will return for nurse visit PVR via straight cath in 2 days as we are closed tomorrow for the holiday (I do not think bladder scan will be accurate due to body habitus & hx peripheral fluid accumulation). If PVR <200ml, pt ok to go & f/u as noted in step 3. If PVR >350ml, peacock needs replaced. If PVR 200-350ml, peacock can stay out but she will need office visit w 11/10 or 11/11. (2) Repeat renal function labs in 1 week to ensure they don't worsen since peacock removal. (3) f/u 4-6 weeks w me assuming good outcome of (1) and (2). Ordered: E&M of New Patient High 60-74 Min 98306 2. CKD (chronic kidney disease) (N18.9: Chronic kidney disease, unspecified) Follows w Dr Rapp Transition Assistant 1.31 on day of dc (10/25/24) Most recent labs 11/03/24 - BUN 34 Transition Assistant 1.86 GFR 26 Pretty variable all year. (Results scanned into documents) Will repeat in 1 week after peacock removal. Sees Dr Rapp either 11/10 or 11/11. Ordered: E&M of New Patient High 60-74 Min 12450 Renal Function Panel 3. Stress incontinence (N39.3: Stress incontinence (female) (male)) At baseline. Typically when stands from seated position or coughing. 2-4 pads per day. Reassess baseline sx at f/u in 4-6 wks. Ordered: E&M of New Patient High 60-74 Min 52810 Total time spent reviewing previous notes/results/external documents, preparing the chart, conducting the encounter with the patient and family, ordering tests/medications, and documenting the encounter was 60 minutes. Follow-up With When Contact Information SYDNIE HASSAN Within 6 weeks [address] [place] [address] Business (1) Additional Instructions: Patient Education Acute Urinary Retention, Female Problem List/Past Medical History Ongoing A-fib BMI 40.0-44.9, adult Chronic diarrhea Chronic low back pain CKD stage 3 secondary to diabetes Depression Diabetes Diabetic neuropathy Epigastric pain Exocrine pancreatic insufficiency GERD (gastroesophageal reflux disease) History of breast cancer HTN (hypertension) Hypercholesteremia Hyperlipidemia Hypomagnesemia Hypothyroidism Left carotid bruit Stress incontinence Urine retention Historical No qualifying data Procedure/Surgical History Colonoscopy (03/2019), Bilateral mastectomy (1992), Cardiac catheterization, Cardiac catheterization, Cholecystectomy, Colonoscopy, Decompression laminectomy, EGD - Esophagogastroduodenosco py, Excision of iliac lymph nodes, Facetectomy of vertebra, Foraminotomy, History of shoulder surgery, History of sigmoid colectomy, NEGRA BSO - Total abdominal hysterectomy and bilateral salpingo-oophorectomy. Medications acetaminophen-oxycodone 3 (more content not included)... Normal [facility] Comment on above: Result Comment: Elec tronically Signed By: STU GARAY, FRANCHESCA Alvarado\.br\Date and Time Signed: 11/04/24 11:13 EST Estimated glomerular filtrat ion rate (GFR) non- Americanon 11-03-2024 GFR/1.73 sq M.predicted among non-blacks MDRD (S/P/Bld) [Vol rate/Area] Estimated glomerular filtration rate (GFR) non- Low >=60 mL/min/1.73 m 2 [facility] Laboratory - Chemistry and C hemistry - challengeon 11-03-2024 Calcium [Mass/Vol] 8.8 mg/dL 8.5-10.1 [facility] Chloride [Moles/Vol] 99 mmol/L 98-107 [facility] CO2 [Moles/Vol] 23.1 mmol/L 21.0-32.0 [facility] Creatinine [Mass/Vol] 1.86 mg/dL High 0.55-1.[address] [facility] GFR/1.73 sq M.predicted MDRD (S/P/Bld) [Vol rate/Area] 32 mL/min/{1.73_m2} Low >=60 mL/min/1.73 m 2 [facility] Glucose [Mass/Vol] 367 mg/dL High 74-106 [facility] Potassium [Moles/Vol] 4.7 mmol/L 3.5-5.[address] [facility] Sodium [Moles/Vol] 134 mmol/L Low 136-145 [facility] Urea nitrogen [Mass/Vol] 34.0 mg/dL High 7.0-18.0 [facility] Urea nitrogen/Creatinine [Mass ratio] 18.3 mg/mg [facility] Serum or plasma anion gap de terminationon 11-03-2024 Anion gap [Moles/Vol] Serum or plasma an ion gap determination [facility] Office Visiton 10-31-2024 Follow-up visit [id number] Joe Call Bela 1945 F Date Provider Department Center 10/31/2024 [id number] TIRADO LOVE [facility] Family History Problem Relation Age of Onset Coronary artery disease Other Diabetes Other Polycystic kidney disease Other Family Status - Relation Status Age at Other Level of Service:44358 [place] OFFICE/OUTPATIENT ESTABLISHED MOD MDM [address] [facility] B-Type Natriuretic Peptideon 10-25-2024 Natriuretic peptide B (Bld) [Mass/Vol] 455.0 pg/mL High 5-100 [facility] Comment on above: Result Comment: PERF ORMED BY: [facility] [address] [place] [address] PATHOLOGIST APPRENTICE EMBALMER MAY HYDE M.D. Performed By: #### G LULS #### Point of Care testing , Basic Metabolic Panelon 10-12 Anion gap [Moles/Vol] 13.0 mmol/L Normal 6.0-15.0 [facility] Comment on above: Performed By: #### G LULS #### Point of Care testing , Calcium [Mass/Vol] 8.6 mg/dL Normal 8.6-10.3 [facility] Comment on above: Performed By: #### G LULS #### Point of Care testing , Chloride [Moles/Vol] 101 mmol/L Normal 98-107 [facility] Comment on above: Performed By: #### G LULS #### Point of Care testing , CO2 [Moles/Vol] 23.8 mmol/L Normal 21.0-31.0 [facility] Comment on above: Performed By: #### G LULS #### Point of Care testing , Creatinine [Mass/Vol] 1.31 mg/dL High 0.60-1.20 [facility] Comment on above: Performed By: #### G LULS #### Point of Care testing , Creatinine Clr Calc Pharmacy 46.58 Normal [facility] Comment on above: Result Comment: PERF ORMED BY: [place] [address] PATHOLOGIST APPRENTICE EMBALMER MAY HYDE M.D. Performed By: #### G LULS #### Point of Care testing , Estimated GFR 41.704 mL/Min Normal [facility] Comment on above: Performed By: #### G LULS #### Point of Care testing , Glucose [Mass/Vol] 232 mg/dL High 70-100 [facility] Comment on above: Result Comment: [place] Glucose Reference Range is dependent on time and content of last meal. Glucose of more than 200 mg/dL in a nonstressed, ambulatory subject supports the diagnosis of Diabetes Mellitus. ADA recommended reference range Performed By: #### G LULS #### Point of Care testing , Potassium [Moles/Vol] 4.8 mmol/L Normal 3.5-5.1 [facility] Comment on above: Performed By: #### G LULS #### Point of Care testing , Sodium [Moles/Vol] 133 mmol/L Low 136-145 [facility] Comment on above: Performed By: #### G LULS #### Point of Care testing , Urea nitrogen [Mass/Vol] 39 mg/dL High 7-25 [facility] Comment on above: Performed By: #### G LULS #### Point of Care testing , Basophils Auto (Bld) [#/Vol] Ordered By: Daniele Jane on 10-25-2024 Basophils (Bld) [#/Vol] Automated basophil count 0.0-0.[address] [facility] Basophils/100 WBC Auto (Bld) Ordered By: Daniele Jane on 10-25-2024 Basophils/100 WBC (Bld) Automated basophil % . [facility] COVID CepheidOrdered By: Trino Jane on 10-25-2024 SARS-CoV-2 (COVID-19) Ab IA Ql COVID Cepheid Abnormal Negative [facility] Comment on above: This is a duplicate Cepheid Xpert Xpress CoV-2/Flu/RSV Plus RNA by RT-PCR result to be used for statistical tracking purpose only. COVID-19 / Flu A/B / RSV PCR on 10-25-2024 SARS-CoV-2 (COVID-19) RNA FERN+probe Ql (Unsp spec) COVID-19 Cepheid Result Positive for SARS-CoV-2 RNA by RT-PCR Flu A Cepheid Result Negative for Flu A RNA by RT-PCR Flu B Cepheid Result Negative for Flu B RNA by RT-PCR RSV Cepheid Result Negative for RSV RNA by RT-PCR COVID19 Blank Space ------ Reference: Negative COVID19 Blank Space ------ Cepheid Disclaimer The Cepheid Xpert Xpress CoV-2/Flu/RSV Plus has Cepheid Disclaimer not been FDA cleared or approved; this test has Cepheid Disclaimer been authorized by FDA under an EUA for use by Cepheid Disclaimer authorized laboratories; this test has been Cepheid Disclaimer authorized only for the simultaneous qualitative Cepheid Disclaimer detection and differentiation of nucleic acids from Cepheid Disclaimer SARS-CoV-2, influenza A, influenza B, and Cepheid Disclaimer respiratory syncytial virus (RSV), and not for any Cepheid Disclaimer other viruses or pathogens; and this test is only Cepheid Disclaimer authorized for the duration of the declaration that Cepheid Disclaimer circumstances exist justifying the authorization of Cepheid Disclaimer emergency use of in vitro diagnostic tests for Cepheid Disclaimer detection and/or diagnosis of COVID-19 under Cepheid Disclaimer Section 564(b)(1) of the Act, 21 U.S.C. 360bbb- Cepheid Disclaimer 3(b)(1), unless the authorization is terminated or Cepheid Disclaimer revoked sooner. PERFORMED BY: [address] [place] [address] PATHOLOGIST APPRENTICE EMBALMER MAY HYDE M.D. Normal [facility] Comment on above: Performed By: #### G LULS #### Point of Care testing , Calcium [Mass/volume] in Ser um or PlasmaOrdered By: Daniele Jane on 10-25-2024 Calcium [Mass/Vol] Calcium [Mass/volume ] in Serum or Plasma 8.6-10.3 [facility] Carbon dioxide, total [Moles /volume] in Serum or PlasmaOrdered By: Daniele Jane on 10-25-2024 CO2 [Moles/Vol] Carbon dioxide, tota l [Moles/volume] in Serum or Plasma 21.0-31.0 [facility] Cepheid COVID PCR Positiveon 10-25-2024 SARS-CoV-2 (COVID-19) RNA FERN+probe Ql (Unsp spec) Positive Critically abnormal Negative [facility] Comment on above: Result Comment: This is a duplicate CepGeoramaid Xpert Xpress CoV-2/Flu/RSV Plus RNA by RT-PCR result to be used for statistical tracking purpose only. PERFORMED BY: [address] [place] [address] PATHOLOGIST APPRENTICE EMBALMER MAY HYDE M.D. Performed By: #### G LULS #### Point of Care testing , Chloride [Moles/volume] in S oziel or PlasmaOrdered By: Daniele Jane on 10-25-2024 Chloride [Moles/Vol] Chloride [Moles/vol ume] in Serum or Plasma 98-107 [facility] Complete Blood Count Auto Di ffon 10-25-2024 Basophils (Bld) [#/Vol] 0.1 10*3/uL Normal 0.0-0.2 [facility] Comment on above: Result Comment: PERF ORMED BY: [address] [place] [address] PATHOLOGIST APPRENTICE EMBALMER MAY HYDE M.D. Performed By: #### G LULS #### Point of Care testing , Basophils/100 WBC (Bld) 0.9 % Normal . [facility] Comment on above: Performed By: #### G LULS #### Point of Care testing , Eosinophils (Bld) [#/Vol] 0.1 10*3/uL Normal 0.0-0.45 [facility] Comment on above: Performed By: #### G LULS #### Point of Care testing , Eosinophils/100 WBC (Bld) 1.5 % Normal . [facility] Comment on above: Performed By: #### G LULS #### Point of Care testing , Erythrocyte distribution width (RBC) [Ratio] 15.3 % Normal 11.9-15.3 [facility] Comment on above: Performed By: #### G LULS #### Point of Care testing , Hematocrit (Bld) [Volume fraction] 36.2 % Normal 34.0-46.4 [facility] Comment on above: Performed By: #### G LULS #### Point of Care testing , Hemoglobin (Bld) [Mass/Vol] 12.2 g/dL Normal 11.8-15.4 [facility] Comment on above: Performed By: #### G LULS #### Point of Care testing , Lymphocytes (Bld) [#/Vol] 0.8 10*3/uL Low 1.00-4.8 [facility] Comment on above: Performed By: #### G LULS #### Point of Care testing , Lymphocytes/100 WBC (Bld) 9.8 % Normal . [facility] Comment on above: Performed By: #### G LULS #### Point of Care testing , MCH (RBC) [Entitic mass] 29.5 pg Normal 24.7-34.3 [facility] Comment on above: Performed By: #### G LULS #### Point of Care testing , MCV (RBC) [Entitic vol] 87.6 fL Normal 80-100 [facility] Comment on above: Performed By: #### G LULS #### Point of Care testing , Mean Corpuscular HGB Conc 33.7 g/dL Normal 32.0-35.0 [facility] Comment on above: Performed By: #### G LULS #### Point of Care testing , Monocytes (Bld) [#/Vol] 0.8 10*3/uL Normal 0.0-0.8 [facility] Comment on above: Performed By: #### G LULS #### Point of Care testing , Monocytes/100 WBC (Bld) 25.33 % High 0.00-20.00 [facility] Comment on above: Result Comment: For adults in ED, MDW > 20.0 may be associated with a higher risk of sepsis during the first 12 hrs of hospital admission Performed By: #### G LULS #### Point of Care testing , Monocytes/100 WBC (Bld) 10.7 % Normal . [facility] Comment on above: Performed By: #### G LULS #### Point of Care testing , Neutrophils (Bld) [#/Vol] 6.1 10*3/uL Normal 1.8-7.7 [facility] Comment on above: Performed By: #### G LULS #### Point of Care testing , Neutrophils/100 WBC (Bld) 77.1 % Normal . [facility] Comment on above: Performed By: #### G LULS #### Point of Care testing , NRBC% 0.1 /100{WBC} Normal 0-0.5 [facility] Comment on above: Performed By: #### G LULS #### Point of Care testing , Platelet mean volume (Bld) [Entitic vol] 9.0 fL Normal 6.3-10.7 [facility] Comment on above: Performed By: #### G LULS #### Point of Care testing , Platelets (Bld) [#/Vol] 142 10*3/uL Low 150-450 [facility] Comment on above: Performed By: #### G LULS #### Point of Care testing , RBC (Bld) [#/Vol] 4.13 10*6/uL Normal 3.60-5.00 [facility] Comment on above: Performed By: #### G LULS #### Point of Care testing , WBC (Bld) [#/Vol] 7.9 10*3/uL Normal 3.8-11.6 [facility] Comment on above: Performed By: #### G LULS #### Point of Care testing , Creatinine [Mass/volume] in Serum or PlasmaOrdered By: Daniele Jane on 10-25-2024 Creatinine [Mass/Vol] Creatinine [Mass/v olume] in Serum or Plasma High 0.60-1.20 [facility] ECG 12 lead ECGon 10-25-2024 ECG 12 lead ECG [facility] [place] [address] Electrocardiograph Report Signed Patient: Joe Call MR#: [id number] 0 : 1945 Acct:[id number] Age/Sex: 79 / F ADM Date: 10/25/24 Loc: ER Room: Type: [facility] ER Attending Dr: Ordering Provider: Daniele Jane DO Date of Service: 10/25/24 ECG/ECG 12 lead ECG: Shortness of Breath/Dyspnea Copies to: Test Reason : Blood Pressure : 181/88 mmHG Vent. Rate : 91 BPM Atrial Rate : 91 BPM P-R Int : 172 ms QRS Dur : 88 ms QT Int : 360 ms P-R-T Axes : 68 40 42 degrees QTcB Int : 442 ms Normal sinus rhythm with sinus arrhythmia Confirmed by Daniele Jane DO ([id number]) on 10/25/2024 2:01:48 PM Referred By: Electronically Signed By: Daniele Jane DO Transcribed By: MUS Signed By Daniele Jane DO 1401 Normal [facility] Eosinophils Auto (Bld) [#/Vo l]Ordered By: Daniele Jane on 10-25-2024 Eosinophils (Bld) [#/Vol] Automated eosinophil count 0.0-0.45 [facility] Eosinophils/100 WBC Auto (Bl d)Ordered By: Daniele Jane on 10-25-2024 Eosinophils/100 WBC (Bld) Automated eosinophil % . [facility] Erythrocyte distribution wid th Auto (RBC) [Ratio]Ordered By: Daniele Jane on 10-25-2024 Erythrocyte distribution width (RBC) [Ratio] Erythrocyte distribution width [Ratio] by Automated count 11.9-15.3 [facility] Glucose [Mass/volume] in Ser um or PlasmaOrdered By: Daniele Jane on 10-25-2024 Glucose [Mass/Vol] Glucose [Mass/volume ] in Serum or Plasma High 70-100 [facility] Comment on above: ADA recommended refe rence rangeRandom Glucose Reference Range is dependent on time and content of last meal. Glucose of more than 200 mg/dL in a nonstressed, ambulatory subject supports the diagnosis of Diabetes Mellitus. Hematocrit Auto (Bld) [Volum e fraction]Ordered By: Daniele Jane on 10-25-2024 Hematocrit (Bld) [Volume fraction] Hematocrit [Volume Fraction] of Blood by Automated count 34.0-46.4 [facility] Hemoglobin [Mass/volume] in BloodOrdered By: Daniele Jane on 10-25-2024 Hemoglobin (Bld) [Mass/Vol] Hemoglobin [Mass/volume] in Blood 11.8-15.4 [facility] INR in Platelet poor plasma by Coagulation assayOrdered By: Daniele Jane on 10-25-2024 INR Coag (PPP) [Relative time] INR in Platelet poor plasma by Coagulation assay [facility] Comment on above: INR Therapeutic Rang e A) Pre- and Peroperative OAT started two weeks before surgery. NOT HIP SURGERY: 1.5 - 2.5 HIP SURGERY: 2 - 3B) Primary and secondary prevention of venous THROMBOSIS: 2 - 3C) Active venous thrombosis, pulmonary embolismand prevention of recurrent venous thrombosis: 2 - 3D) Prevention of arterial thromboembolismincluding patients with mechanical heart valves: 3 - 4.5 Leukocytes [#/volume] correc gali for nucleated erythrocytes in Blood by Automated counOrdered By: Daniele Jane on 10-25-2024 WBC corrected for nucl RBC Auto (Bld) [#/Vol] Leukocytes [#/volume] corrected for nucleated erythrocytes in Blood by Automated coun 3.8-11.6 [facility] Lymphocytes Auto (Bld) [#/Vo l]Ordered By: Daniele Jane on 10-25-2024 Lymphocytes (Bld) [#/Vol] Lymphocytes [#/volume] in Blood by Automated count Low 1.00-4.8 [facility] Lymphocytes/100 WBC Auto (Bl d)Ordered By: Daniele Jnae on 10-25-2024 Lymphocytes/100 WBC (Bld) Lymphocytes/100 leukocytes in Blood by Automated count . [facility] MCH Auto (RBC) [Entitic mass ]Ordered By: Daniele Jane on 10-25-2024 MCH (RBC) [Entitic mass] MCH [Entitic mass] by Automated count 24.7-34.3 [facility] MCHC Auto (RBC) [Mass/Vol]Or dered By: Daniele Jane on 10-25-2024 MCHC (RBC) [Mass/Vol] MCHC [Mass/volume] by Automated count 32.0-35.0 [facility] MCV Auto (RBC) [Entitic vol] Ordered By: Daniele Jane on 10-25-2024 MCV (RBC) [Entitic vol] MCV [Entitic volume] by Automated count 80-100 [facility] Monocyte distribution width [Entitic volume] in Blood by AutomatedOrdered By: Daniele Jane on 10-25-2024 Monocyte distribution width Auto (Bld) [Entitic vol] Monocyte distribution width [Entitic volume] in Blood by Automated High 0.00-20.00 [facility] Comment on above: For adults in ED, MD W > 20.0 may be associated with a higher risk of sepsis during the first 12 hrs of hospital admission Monocytes Auto (Bld) [#/Vol] Ordered By: Daniele Jane on 10-25-2024 Monocytes (Bld) [#/Vol] Automated blood monocyte count 0.0-0.8 [facility] Monocytes/100 WBC Auto (Bld) Ordered By: Daniele Jane on 10-25-2024 Monocytes/100 WBC (Bld) Automated monocyte % . [facility] Natriuretic peptide B [Mass/ Vol]Ordered By: Daniele Jane on 10-25-2024 Natriuretic peptide B (Bld) [Mass/Vol] BNP ser/plas High 5-100 [facility] Neutrophils Auto (Bld) [#/Vo l]Ordered By: Daniele Jane on 10-25-2024 Neutrophils (Bld) [#/Vol] Neutrophils [#/volume] in Blood by Automated count 1.8-7.7 [facility] Neutrophils/100 WBC Auto (Bl d)Ordered By: Daniele Jane on 10-25-2024 Neutrophils/100 WBC (Bld) Automated neutrophil % . [facility] No Panel InformationOrdered By: Daniele Jane on 10-25-2024 Estimated GFR (CKD-EPI) 41.704 mL/Min [facility] Pharmacy Creatinine Clearance (Chem 46.58 [facility] Nucleated erythrocytes [Pres ence] in Blood by Automated countOrdered By: Daniele Jane on 10-25-2024 Nucleated RBC Auto Ql (Bld) Nucleated erythrocytes [Presence] in Blood by Automated count 0-0.5 [facility] Partial Thromboplastin Timeo n 10-25-2024 aPTT Coag (Bld) [Time] 28.6 s Normal 25.1-36.5 [facility] Comment on above: Result Comment: A he matocrit value greater than 55% may lead to inaccurate results in coagulation testing. Patients having hematocrit values >55% require a special collection tube for coagulation studies. Please contact the laboratory at [phone] for redraw instructions. PERFORMED BY: [facility] [address] [place] [address] PATHOLOGIST APPRENTICE EMBALMER MAY HYDE M.D. Performed By: #### G LULS #### Point of Care testing , Platelet mean volume Auto (B ld) [Entitic vol]Ordered By: Daniele Jane on 10-25-2024 Platelet mean volume (Bld) [Entitic vol] Platelet mean volume [Entitic volume] in Blood by Automated count 6.3-10.7 [facility] Platelets Auto (Bld) [#/Vol] Ordered By: Daniele Jane on 10-25-2024 Platelets (Bld) [#/Vol] Platelets [#/volume] in Blood by Automated count Low 150-450 [facility] Potassium [Moles/volume] in Serum or PlasmaOrdered By: Daniele Jane on 10-25-2024 Potassium [Moles/Vol] Potassium [Moles/v olume] in Serum or Plasma 3.5-5.1 [facility] Prothrombin Time INRon 10-25 INR Coag (PPP) [Relative time] 1.2 {INR} Normal [facility] Comment on above: Result [...] with mechanical heart valves: 3 - 4.5 Performed By: #### G LULS #### Point of Care testing , PT Coag (PPP) [Time] 13.5 s High 9.0-12.9 [facility] Comment on above: Result Comment: A he matocrit value greater than 55% may lead to inaccurate results in coagulation testing. Patients having hematocrit values >55% require a special collection tube for coagulation studies. Please contact the laboratory at [phone] for redraw instructions. Performed By: #### G LULS #### Point of Care testing , Prothrombin time (PT)Ordered By: Daniele Jane on 10-25-2024 PT Coag (PPP) [Time] Prothrombin time (PT) High 9.0- 12.9 [facility] Comment on above: A hematocrit value g reater than 55% may lead to inaccurate results in coagulation testing. Patients having hematocrit values >55% require a special collection tube for coagulation studies. Please contact the laboratory at [phone] for redraw instructions. RBC Auto (Bld) [#/Vol]Ordere d By: Daniele Jane on 10-25-2024 RBC (Bld) [#/Vol] Erythrocytes [#/volu me] in Blood by Automated count 3.60-5.00 [facility] Respiratory specimen influen za A virus, influenza B virus, respiratory syncytical virOrdered By: Daniele Jane on 10-25-2024 SARS-CoV-2 (COVID-19) RNA FERN+probe Ql (Unsp spec) Respiratory specimen influenza A virus, influenza B virus, respiratory syncytical vir [facility] SARS-CoV-2 (COVID-19) RNA FERN+probe Ql (Unsp spec) Respiratory specimen influenza A virus, influenza B virus, respiratory syncytical vir [facility] Serum or plasma anion gap de terminationOrdered By: Daniele Jane on 10-25-2024 Anion gap [Moles/Vol] Serum or plasma an ion gap determination 6.0-15.0 [facility] Sodium [Moles/volume] in Ser um or PlasmaOrdered By: Daniele Jane on 10-25-2024 Sodium [Moles/Vol] Sodium [Moles/volume ] in Serum or Plasma Low 136-145 [facility] Troponin I High Sensitivityo n 10-25-2024 Troponin I High Sensitivity 14.6 pg/mL Normal 0.0-15.0 [facility] Comment on above: Result Comment: PERF ORMED BY: [facility] [address] [place] [address] PATHOLOGIST APPRENTICE EMBALMER MAY HYDE M.D. Performed By: #### G MICK #### Point of Care testing , Troponin I.cardiac [Mass/vol ume] in Serum or Plasma by Detection limit <= 0.01 ng/Ordered By: Daniele Jane on 10-25-2024 Troponin I.cardiac DL <= 0.01 ng/mL [Mass/Vol] Troponin I.cardiac [Mass/volume] in Serum or Plasma by Detection limit <= 0.01 ng/ 0.0-15.0 [facility] Urea nitrogen [Mass/volume] in Serum or PlasmaOrdered By: Daniele Jane on 10-25-2024 Urea nitrogen [Mass/Vol] Urea nitrogen [Mass/volume] in Serum or Plasma High 7-25 [facility] WBC Auto (Bld) [#/Vol]Ordere d By: Daniele Jane on 10-25-2024 WBC (Bld) [#/Vol] Leukocytes [#/volume ] in Blood by Automated count 3.8-11.6 [facility] XR chest 1V portableon 10-25 XR chest 1V portable [facility] [place] [address] [place] [address] XRay Report Signed Patient: Joe Call MR#: [id number] 0 : 1945 Acct:[id number] Age/Sex: 79 / F ADM Date: 10/25/24 Loc: ER Room: Type: [facility] ER Attending Dr: Copies to: Daniele Jane DO Ordering Provider: Daniele Jane DO Date of Service: 10/25/24 XR/XR chest 1V portable: Shortness of Breath/Dyspnea Plain film chest Single view HISTORY: Shortness of breath. Nasal congestion. COMPARISON: 10/16/2024 FINDINGS: SUPPORT DEVICES: None POSTSURGICAL CHANGES: None HEART: Within normal limits calcification of the mitral annulus. PULMONARY ERIKA: Within normal limits MEDIASTINUM: Atherosclerosis of the thoracic aorta. LUNGS AND PLEURA: No acute lung process, pleural effusion or pneumothorax identified. BONY STRUCTURES: Intact ADDITIONAL FINDINGS None XR/XR chest 1V portable IMPRESSION: No acute process. Impression dictated by: Jarred Randolph M.D.10/25/2024 7:35 AM Dictation Location: [place] [address] Transcribed By: [facility] 10/25/24 0735 Dictated By: Jarred Randolph DO 10/25/24 0734 Signed By: 10/25/24 0735 Normal [facility] aPTT in Platelet poor plasma by Coagulation assayOrdered By: Daniele Jane on 10-25-2024 aPTT Coag (PPP) [Time] Activated partial thromboplastin time (aPTT) in platelet poor plasma by coagulation a 25.1-36.5 [facility] Comment on above: A hematocrit value g reater than 55% may lead to inaccurate results in coagulation testing. Patients having hematocrit values >55% require a special collection tube for coagulation studies. Please contact the laboratory at [phone] for redraw instructions. Appearance of UrineOrdered B y: Zhang Norwood on 10-22-2024 Appearance (U) Urine appearance Abnormal Clear [facility] Bacteria [Presence] in Urine by AutomatedOrdered By: Zhang Norwood on 10-22-2024 Bacteria Auto Ql (U) Bacteria [Presence] in Urine by Automated None Seen [facility] Bilirubin Test strip Ql (U)O rdered By: Zhang Norwood on 10-22-2024 Bilirubin Ql (U) Bilirubin.total [Presence] in Urine by Test strip Negative [facility] Calcium oxalate crystals [Pr esence] in Urine by Computer assisted methodOrdered By: Zhang Norwood on 10-22-2024 Calcium oxalate crystals Computer assisted Ql (U) Calcium oxalate crystals [Presence] in Urine by Computer assisted method [facility] Color Auto (U)Ordered By: Renetta Norwood on 10-22-2024 Color (U) Color of Urine by Auto Yellow Fi [facility] Dipstick and Microscopicon 1 12-23-2023 Appearance (U) Cloudy Critically abnormal Clear [facility] Comment on above: Order Comment: Name Collection Type:: Peacock Catheter Performed By: #### M G, BMP #### [facility] [address] [place] [id number] [place] Bacteria,Urine None Seen Normal None Seen [facility] Comment on above: Order Comment: Name Collection Type:: Peacock Catheter Performed By: #### M G, BMP #### [facility] [address] [place] [address] [place] Bilirubin,Urine Negative Normal Negative [facility] Comment on above: Order Comment: Name Collection Type:: Peacock Catheter Performed By: #### M G, BMP #### [facility] [address] [place] [address] [place] Calcium Oxalate Crystals,Urine Rare Normal [facility] Comment on above: Order Comment: Name Collection Type:: Peacock Catheter Performed By: #### M G, BMP #### [facility] [address] [place] [address] [place] Color (U) Yellow Normal Yellow [facility] Comment on above: Order Comment: Name Collection Type:: Peacock Catheter Performed By: #### M G, BMP #### [facility] [address] [place] [address] [place] Glucose Ql (U) 30 mg/dL High Normal [facility] Comment on above: Order Comment: Name Collection Type:: Peacock Catheter Performed By: #### M G, BMP #### [place] [address] [place] Hyaline Casts,Urine 0 [LPF] Normal 0-8 [facility] Comment on above: Order Comment: Name Collection Type:: Peacock Catheter Performed By: #### M G, BMP #### [address] Ketones Ql (U) Negative Normal Negative [facility] Comment on above: Order Comment: Name Collection Type:: Peacock Catheter Performed By: #### M G, BMP #### [address] Leukocyte esterase Test strip Ql (U) 1+ High Negative [facility] Comment on above: Order Comment: Name Collection Type:: Peacock Catheter Performed By: #### M G, BMP #### [place] [address] [place] Mucus,Urine Rare Normal [facility] Comment on above: Order Comment: Name Collection Type:: Peacock Catheter Result Comment: PERF ORMED BY: [place] [id number] PATHOLOGIST APPRENTICE EMBALMER MAY HYDE M.D. Performed By: #### M G, BMP #### [place] [address] [place] Nitrite,Urine Negative Normal Negative [facility] Comment on above: Order Comment: Name Collection Type:: Peacock Catheter Performed By: #### M G, BMP #### [place] [address] [place] Occult Blood,Urine 3+ High Negative [facility] Comment on above: Order Comment: Name Collection Type:: Peacock Catheter Result Comment: PERF ORMED BY: [place] [address] PATHOLOGIST APPRENTICE EMBALMER MAY HYDE M.D. Performed By: #### M G, BMP #### [address] pH (U) 5.5 [pH] Normal 5.0-9.0 [facility] Comment on above: Order Comment: Name Collection Type:: Peacock Catheter Performed By: #### M G, BMP #### [address] Protein (U) [Mass/Vol] 300 mg/dL High Negative [facility] Comment on above: Order Comment: Name Collection Type:: Peacock Catheter Performed By: #### M G, BMP #### [address] RBC,Urine Innumerable High 0-4 [facility] Comment on above: Order Comment: Name Collection Type:: Peacock Catheter Performed By: #### M G, BMP #### [address] Specificy [place],Urine 1.019 Normal 1.001-1.030 [facility] Comment on above: Order Comment: Name Collection Type:: Peacock Catheter Performed By: #### M G, BMP #### [place] [address] [place] Squamous Epithelial Cell,Urine 1 [HPF] Normal 0-2 [facility] Comment on above: Order Comment: Name Collection Type:: Peacock Catheter Performed By: #### M G, BMP #### [address] Urobilinogen,Urine Normal Normal Normal [facility] Comment on above: Order Comment: Name Collection Type:: Peacock Catheter Performed By: #### M G, BMP #### [place] [address] [place] WBC,Urine 10 [HPF] High 0-4 [facility] Comment on above: Order Comment: Name Collection Type:: Peacock Catheter Performed By: #### M G, BMP #### [place] [address] [place] Epithelial cells.squamous [# /area] in Urine sediment by Automated countOrdered By: Zhang Norwood on 10-22-2024 Epithelial cells.squamous Auto (Urine sed) [#/Area] Epithelial cells.squamous [#/area] in Urine sediment by Automated count 0-2 [facility] Erythrocytes [#/area] in Uri ne sediment by Automated countOrdered By: Zhang Norwood on 10-22-2024 RBC Auto (Urine sed) [#/Area] Erythrocytes [#/area] in Urine sediment by Automated count High 0-4 [facility] Glucose [Mass/volume] in Uri ne by Test stripOrdered By: Zhang Norwood on 10-22-2024 Glucose Test strip (U) [Mass/Vol] Glucose [Mass/volume] in Urine by Test strip [facility] Normal [facility] Hemoglobin Test strip Ql (U) Ordered By: Zhang Norwood on 10-22-2024 Hemoglobin Ql (U) Hemoglobin [Presence ] in Urine by Test strip [facility] Negative [facility] Hyaline casts [#/area] in Ur ine sediment by Automated countOrdered By: Zhang Norwood on 10-22-2024 Hyaline casts Auto (Urine sed) [#/Area] Hyaline casts [#/area] in Urine sediment by Automated count 0-8 [facility] Ketones Test strip Ql (U)Ord ered By: Zhang Norwood on 10-22-2024 Ketones Ql (U) Ketones [Presence] i n Urine by Test strip Negative [facility] Leukocyte esterase [Presence ] in Urine by Test stripOrdered By: Zhang Norwood on 10-22-2024 Leukocyte esterase Test strip Ql (U) Leukocyte esterase [Presence] in Urine by Test strip [facility] Negative [facility] Leukocytes [#/area] in Urine sediment by Automated countOrdered By: Zhang Norwood on 10-22-2024 WBC Auto (Urine sed) [#/Area] Leukocytes [#/area] in Urine sediment by Automated count [facility] 0-4 [facility] Mucus [Presence] in Urine by AutomatedOrdered By: Zhang Norwood on 10-22-2024 Mucus Auto Ql (U) Mucus [Presence] in Urine by Automated [facility] Nitrite Test strip Ql (U)Ord ered By: Zhang Norwood on 10-22-2024 Nitrite Ql (U) Nitrite [Presence] i n Urine by Test strip Negative [facility] Protein Test strip (U) [Mass /Vol]Ordered By: Zhang Norwood on 10-22-2024 Protein (U) [Mass/Vol] Protein [Mass/vol ume] in Urine by Test strip High Negative [facility] Specific gravity Test strip (U) [Rel density]Ordered By: Zhang Norwood on 10-22-2024 Specific gravity (U) [Rel density] Specific gravity of Urine by Test strip 1.001-1.030 [facility] Urine Cultureon 10-22-2024 Bacteria identified Cx Nom (U) 15,000 colonies/ml mixed bacterial skin contaminants 2 Days PERFORMED BY: [place] [id number] PATHOLOGIST APPRENTICE EMBALMER MAY HYDE M.D. Normal [facility] Comment on above: Performed By: #### M G, BMP #### [address] Urine cultureOrdered By: Hortensia Norwood on 10-22-2024 Bacteria identified Cx Nom (U) Urine culture [facility] Bacteria identified Cx Nom (U) Urine culture [facility] Urobilinogen Test strip (U) [Mass/Vol]Ordered By: Zhang Norwood on 10-22-2024 Urobilinogen (U) [Mass/Vol] Urobilinogen [Mass/volume] in Urine by Test strip Normal [facility] pH Test strip (U)Ordered By: Zhang Norwood on 10-22-2024 pH (U) pH of Urine by Test strip 5.0-9.0 [facility] A1C with Estimated Average G keciamert 10-20-2024 Glucose [Mass/Vol] 292 mg/dL Normal [facility] Comment on above: Result Comment: PERF ORMED BY: [place] [address] PATHOLOGIST APPRENTICE EMBALMER MAY HYDE M.D. Performed By: #### G LULS #### Point of Care testing , HbA1c (Bld) [Mass fraction] 11.8 % High 4.3-5.6 [facility] Comment on above: Result Comment: Incr eased risk for diabetes: 5.7 - 6.4 diabetes: >6.4 glycemic control for adults with diabetes: <7.0 Performed By: #### G MICK #### Point of Care testing , Basic Metabolic Panelon 12-0 Anion gap [Moles/Vol] Not performed Normal 6.0-15.0 [facility] Comment on above: Performed By: #### Vandana Cramer, BMP #### [facility] [address] Calcium [Mass/Vol] 8.7 mg/dL Normal 8.6-10.3 [facility] Comment on above: Performed By: #### Vandana Cramer, BMP #### [facility] [address] Chloride [Moles/Vol] 97 mmol/L Low 98-107 [facility] Comment on above: Performed By: #### Vandana Cramer, BMP #### [facility] [address] CO2 [Moles/Vol] 26.0 mmol/L Normal 21.0-31.0 [facility] Comment on above: Performed By: #### Vandana Cramer, BMP #### [facility] [address] [place] [address] [place] Creatinine [Mass/Vol] 3.06 mg/dL High 0.60-1.20 [facility] Comment on above: Performed By: #### Vandana Cramer, BMP #### [facility] [address] [place] [address] [place] Creatinine Clr Calc Pharmacy 18.79 Normal [facility] Comment on above: Performed By: #### Vandana Cramer, BMP #### [facility] [address] [place] [address] [place] Estimated GFR 15.067 mL/Min Normal [facility] Comment on above: Performed By: #### Vandana Cramer, BMP #### [address] Glucose [Mass/Vol] 159 mg/dL Significant change up 70-100 [facility] Comment on above: Result Comment: [facility] Glucose Reference Range is dependent on time and content of last meal. Glucose of more than 200 mg/dL in a nonstressed, ambulatory subject supports the diagnosis of Diabetes Mellitus. ADA recommended reference range Performed By: #### M G, BMP #### [facility] [address] Potassium Normal 3.5-5.1 [facility] Comment on above: Result Comment: Spec imen hemolyzed, redraw requested Performed By: #### M Bela, BMP #### [facility] [address] Sodium Normal 136-145 [facility] Comment on above: Result Comment: Spec imen hemolyzed, redraw requested Performed By: #### Vandana Cramer, BMP #### [facility] [address] Urea nitrogen [Mass/Vol] 91 mg/dL High 7-25 [facility] Comment on above: Performed By: #### Vandana Cramer, BMP #### [facility] [address] Blood estimated average gluc ose determination by estimation from glycated hemoglobinOrdered By: Kavin Escobar on 10-20-2024 Average glucose Estimated from glycated hemoglobin (Bld) [Mass/Vol] Glucose mean value [Mass/volume] in Blood Estimated from glycated hemoglobin [facility] Calcium [Mass/volume] in Ser um or PlasmaOrdered By: Mauri Chavira on 10-20-2024 Calcium [Mass/Vol] Calcium [Mass/volume ] in Serum or Plasma 8.6-10.3 [facility] Carbon dioxide, total [Moles /volume] in Serum or PlasmaOrdered By: Mauri Chavira on 10-20-2024 CO2 [Moles/Vol] Carbon dioxide, tota l [Moles/volume] in Serum or Plasma 21.0-31.0 [facility] Chloride [Moles/volume] in S oziel or PlasmaOrdered By: Mauri Chavira on 10-20-2024 Chloride [Moles/Vol] Chloride [Moles/vol ume] in Serum or Plasma Low 98-107 [facility] Creatinine [Mass/volume] in Serum or PlasmaOrdered By: Mauri Chavira on 10-20-2024 Creatinine [Mass/Vol] Creatinine [Mass/v olume] in Serum or Plasma High 0.60-1.20 [facility] Glucose Glucometer (BldC) [M ass/Vol]Ordered By: Kavin Escobar on 10-20-2024 Glucose [Mass/Vol] Capillary blood gluc ose measurement by glucometer (mass/volume) [facility] Comment on above: Random Glucose Refer ence Range is dependent on time and content of last meal. Glucose of more than 200 mg/dL in a nonstressed, ambulatory subject supports the diagnosis of Diabetes Mellitus. Glucose Poct Glucometerson 1 12-21-2023 Glucose [Mass/Vol] 209 mg/dL Normal [facility] Comment on above: Result Comment: [place] om Glucose Reference Range is dependent on time and content of last meal. Glucose of more than 200 mg/dL in a nonstressed, ambulatory subject supports the diagnosis of Diabetes Mellitus. PERFORMED BY: [place] [address] PATHOLOGIST APPRENTICE EMBALMER MAY HYDE M.D. Performed By: #### Vandana Cramer, BMP #### [facility] [address] [place] [address] [facility] Glucose [Mass/Vol] 164 mg/dL Normal [facility] Comment on above: Result Comment: [place] Glucose Reference Range is dependent on time and content of last meal. Glucose of more than 200 mg/dL in a nonstressed, ambulatory subject supports the diagnosis of Diabetes Mellitus. PERFORMED BY: [place] [id number] PATHOLOGIST APPRENTICE EMBALMER MAY HYDE M.D. Performed By: #### Vandana Cramer, BMP #### [facility] [address] [place], [place] [id number] [place] Glucose [Mass/volume] in Ser um or PlasmaOrdered By: Mauri Chavira on 10-20-2024 Glucose [Mass/Vol] Glucose [Mass/volume ] in Serum or Plasma Invalid Interpretation Code 70-100 [facility] Comment on above: Delta: 288 on 11ADA recommended reference rangeRandom Glucose Reference Range is dependent on time and content of last meal. Glucose of more than 200 mg/dL in a nonstressed, ambulatory subject supports the diagnosis of Diabetes Mellitus. Hemoglobin A1c/Hemoglobin.to vinicio in BloodOrdered By: Kavin Escobar on 10-20-2024 HbA1c (Bld) [Mass fraction] Hemoglobin A1c percentage High 4.3-5.6 [facility] Comment on above: Increased risk for d iabetes: 5.7 - 6.4diabetes: >6.4glycemic control for adults with diabetes: <7.0 Magnesiumon 10-20-2024 Magnesium Normal 1.9-2.7 [facility] Comment on above: Result Comment: Spec imen hemolyzed, redraw requested PERFORMED BY: [address] [address] PATHOLOGIST APPRENTICE EMBALMER MAY HYDE M.D. Performed By: #### Vandana Cramer, [facility] #### [place] [id number] [facility] Magnesium [Mass/volume] in S oziel or PlasmaOrdered By: Mauri Chavira on 10-20-2024 Magnesium [Mass/Vol] Magnesium [Mass/vol ume] in Serum or Plasma 1.9-2.7 [facility] No Panel InformationOrdered By: Mauri Chavira on 10-20-2024 Estimated GFR (CKD-EPI) 15.067 mL/Min [facility] Pharmacy Creatinine Clearance (Chem 18.79 [facility] Potassium [Moles/volume] in Serum or PlasmaOrdered By: Mauri Chvaira on 10-20-2024 Potassium [Moles/Vol] Potassium [Moles/v olume] in Serum or Plasma 3.5-5.1 [facility] Redraw Magnesiumon Magnesium [Mass/Vol] 1.9 mg/dL Normal 1.9-2.7 [facility] Comment on above: Result Comment: PERF ORMED BY: [address] [address] PATHOLOGIST APPRENTICE EMBALMER MAY HYDE M.D. Performed By: #### M G, BMP #### [facility] [address] [place] [address] Redraw Magnesium Normal 1.9-2.7 [facility] Comment on above: Result Comment: Spec imen hemolyzed, redraw requested PERFORMED BY: [place] [address] PATHOLOGIST APPRENTICE EMBALMER MAY HYDE M.D. Performed By: #### M G, BMP #### [address] Redraw Potassiumon Potassium [Moles/Vol] 4.0 mmol/L Normal 3.5-5.1 [facility] Comment on above: Performed By: #### M G, BMP #### [address] Redraw Potassium Normal 3.5-5.1 [facility] Comment on above: Result Comment: Spec imen hemolyzed, redraw requested Performed By: #### M G, BMP #### [address] Redraw Sodiumon 10-20-2024 Sodium [Moles/Vol] 134 mmol/L Low 136-145 [facility] Comment on above: Performed By: #### M G, BMP #### [address] Serum or plasma anion gap de terminationOrdered By: Mauri Chavira on 10-20-2024 Anion gap [Moles/Vol] Serum or plasma an ion gap determination [facility] Comment on above: Test not performed Sodium [Moles/volume] in Ser um or PlasmaOrdered By: Mauri Chavira on 10-20-2024 Sodium [Moles/Vol] Sodium [Moles/volume ] in Serum or Plasma Low 136-145 [facility] Urea nitrogen [Mass/volume] in Serum or PlasmaOrdered By: Mauri Chavira on 12-09-2024 Urea nitrogen [Mass/Vol] Urea nitrogen [Mass/volume] in Serum or Plasma High 7-25 [facility] Basic Metabolic Panelon 12-0 Anion gap [Moles/Vol] 14.7 mmol/L Normal 6.0-15.0 [facility] Comment on above: Performed By: #### Vandana G, BMP #### [facility] [address] [place] [id number] [facility] Calcium [Mass/Vol] 9.1 mg/dL Normal 8.6-10.3 [facility] Comment on above: Performed By: #### Vandana G, BMP #### [facility] [address] [place] [address] [place] Chloride [Moles/Vol] 95 mmol/L Low 98-107 [facility] Comment on above: Performed By: #### Vandana G, BMP #### [facility] [address] [place] [address] [place] CO2 [Moles/Vol] 28.6 mmol/L Normal 21.0-31.0 [facility] Comment on above: Performed By: #### Vandana G, BMP #### [facility] [address] [place] [address] [place] Creatinine [Mass/Vol] 2.71 mg/dL Significan t change up 0.60-1.20 [facility] Comment on above: Performed By: #### Vandana G, BMP #### [facility] [address] [place] [id number] [place] Creatinine Clr Calc Pharmacy 21.49 Normal [facility] Comment on above: Performed By: #### Vandana G, BMP #### [facility] [address] [place] [id number] [place] Estimated GFR 17.432 mL/Min Normal [facility] Comment on above: Performed By: #### Vandana G, BMP #### [facility] [address] [place] [id number] [facility] Glucose [Mass/Vol] 288 mg/dL High 70-100 [facility] Comment on above: Result Comment: [place] Glucose Reference Range is dependent on time and content of last meal. Glucose of more than 200 mg/dL in a nonstressed, ambulatory subject supports the diagnosis of Diabetes Mellitus. ADA recommended reference range Performed By: #### M G, BMP #### [address] Potassium [Moles/Vol] 4.3 mmol/L Normal 3.5-5.1 [facility] Comment on above: Performed By: #### M G, BMP #### [address] Sodium [Moles/Vol] 134 mmol/L Low 136-145 [facility] Comment on above: Performed By: #### M G, BMP #### [address] Urea nitrogen [Mass/Vol] 77 mg/dL High 7-25 [facility] Comment on above: Performed By: #### M G, BMP #### [address] Glucose Poct Glucometerson 1 12-20-2023 Glucose [Mass/Vol] 222 mg/dL Normal [facility] Comment on above: Result Comment: [facility] Glucose Reference Range is dependent on time and content of last meal. Glucose of more than 200 mg/dL in a nonstressed, ambulatory subject supports the diagnosis of Diabetes Mellitus. PERFORMED BY: [place] [address] PATHOLOGIST APPRENTICE EMBALMER MAY HYDE M.D. Performed By: #### Vandana G, BMP #### [address] Glucose [Mass/Vol] 306 mg/dL Normal [facility] Comment on above: Result Comment: [place] Glucose Reference Range is dependent on time and content of last meal. Glucose of more than 200 mg/dL in a nonstressed, ambulatory subject supports the diagnosis of Diabetes Mellitus. PERFORMED BY: [place] [address] PATHOLOGIST APPRENTICE EMBALMER MAY HYDE M.D. Performed By: #### Vandana G, BMP #### [address] [place] [address] [place] Glucose [Mass/Vol] 342 mg/dL Normal [facility] Comment on above: Result Comment: [place] Glucose Reference Range is dependent on time and content of last meal. Glucose of more than 200 mg/dL in a nonstressed, ambulatory subject supports the diagnosis of Diabetes Mellitus. PERFORMED BY: [place] [address] PATHOLOGIST APPRENTICE EMBALMER MAY HYDE M.D. Performed By: #### Vandana Cramer, BMP #### [address] Glucose [Mass/Vol] 267 mg/dL Normal [facility] Comment on above: Result Comment: [place] Glucose Reference Range is dependent on time and content of last meal. Glucose of more than 200 mg/dL in a nonstressed, ambulatory subject supports the diagnosis of Diabetes Mellitus. PERFORMED BY: [place] [address] PATHOLOGIST APPRENTICE EMBALMER MAY HYDE M.D. Performed By: #### Vandana Cramer, BMP #### [address] Magnesiumon 10-19-2024 Magnesium [Mass/Vol] 2.0 mg/dL Normal 1.9-2.7 [facility] Comment on above: Result Comment: PERF ORMED BY: [place] [address] PATHOLOGIST APPRENTICE EMBALMER MAY HYDE M.D. Performed By: #### Vandana Cramer, BMP #### [address] Basic Metabolic Panelon 12-0 Anion gap [Moles/Vol] 15.4 mmol/L High 6.0-15.0 [facility] Comment on above: Order Comment: REY PARKER NOTIFIED. SMB 0442. Performed By: #### Vandana Cramer, KAREN, TSH3, T4F ####[address] Calcium [Mass/Vol] 9.5 mg/dL Normal 8.6-10.3 [facility] Comment on above: Order Comment: REY PARKER NOTIFIED. SMB 0442. Performed By: #### Vandana Cramer, KAREN, TSH3, T4F ####[place] [id number] [facility] Chloride [Moles/Vol] 97 mmol/L Low 98-107 [facility] Comment on above: Order Comment: REY PARKER NOTIFIED. SMB 0442. Performed By: #### Vandana Cramer, KAREN, TSH3, T4F ####[place] [id number] [facility] CO2 [Moles/Vol] 29.7 mmol/L Normal 21.0-31.0 [facility] Comment on above: Order Comment: REY PARKER NOTIFIED. SMB 0442. Performed By: #### KAREN Hansen, TSH3, T4F ####[place] [id number] [facility] Creatinine [Mass/Vol] 1.81 mg/dL High 0.60-1.20 [facility] Comment on above: Order Comment: REY PARKER NOTIFIED. SMB 044. Performed By: #### Vandana Cramer, KAREN, TSH3, T4F ####[place] [id number] [facility] Creatinine Clr Calc Pharmacy 32.95 Normal [facility] Comment on above: Order Comment: REY PARKER NOTIFIED. SMB 044. Performed By: #### Vandana Cramer, KAREN, TSH3, T4F ####[place] [id number] [facility] Estimated GFR 28.294 mL/Min Normal [facility] Comment on above: Order Comment: REY PARKER NOTIFIED. SMB 0442. Performed By: #### Vandana Cramer, KAREN, TSH3, T4F ####[place] [id number] [facility] Glucose [Mass/Vol] 220 mg/dL High 70-100 [facility] Comment on above: Order Comment: REY PARKER NOTIFIED. SMB 0442. Result Comment: [facility] Glucose Reference Range is dependent on time and content of last meal. Glucose of more than 200 mg/dL in a nonstressed, ambulatory subject supports the diagnosis of Diabetes Mellitus. ADA recommended reference range Performed By: #### M G, BMP, TSH3, T4F ####[place] [address] [place] [address] [facility] Potassium [Moles/Vol] 4.1 mmol/L Normal 3.5-5.1 [facility] Comment on above: Order Comment: REY PARKER NOTIFIED. SMB 0442. Performed By: #### M G, BMP, TSH3, T4F ####[place] [id number] [facility] Sodium [Moles/Vol] 138 mmol/L Normal 136-145 [facility] Comment on above: Order Comment: REY PARKER NOTIFIED. SMB 0442. Performed By: #### M G, BMP, TSH3, T4F ####[address] [address] [facility] Urea nitrogen [Mass/Vol] 66 mg/dL High 7-25 [facility] Comment on above: Order Comment: REY PARKER NOTIFIED. SMB 0442. Performed By: #### M G, BMP, TSH3, T4F ####[address] [address] [facility] Free T4 (Free Thyroxine)on 12-19-2023 Free T4 [Mass/Vol] 1.26 ng/dL High 0.61-1.12 [facility] Comment on above: Order Comment: REY PARKER NOTIFIED. SMB 0442. Performed By: #### M G, BMP, TSH3, T4F ####[place] [id number] [facility] Glucose Poct Glucometerson 12-19-2023 Glucose [Mass/Vol] 329 mg/dL Normal [facility] Comment on above: Result Comment: [facility] Glucose Reference Range is dependent on time and content of last meal. Glucose of more than 200 mg/dL in a nonstressed, ambulatory subject supports the diagnosis of Diabetes Mellitus. PERFORMED BY: [place] [address] PATHOLOGIST APPRENTICE EMBALMER MAY HYDE M.D. Performed By: #### G MICK #### Point of Care testing , Glucose [Mass/Vol] 210 mg/dL Normal [facility] Comment on above: Result Comment: [place] Glucose Reference Range is dependent on time and content of last meal. Glucose of more than 200 mg/dL in a nonstressed, ambulatory subject supports the diagnosis of Diabetes Mellitus. PERFORMED BY: [place] [address] PATHOLOGIST APPRENTICE EMBALMER MAY HYDE M.D. Performed By: #### Vandana Cramer, BMP #### [address] Glucose [Mass/Vol] 251 mg/dL Normal [facility] Comment on above: Result Comment: [place] Glucose Reference Range is dependent on time and content of last meal. Glucose of more than 200 mg/dL in a nonstressed, ambulatory subject supports the diagnosis of Diabetes Mellitus. PERFORMED BY: [place] [address] PATHOLOGIST APPRENTICE EMBALMER MAY HYDE M.D. Performed By: #### M Bela, BMP #### [address] Glucose [Mass/Vol] 207 mg/dL Normal [facility] Comment on above: Result Comment: [place] Glucose Reference Range is dependent on time and content of last meal. Glucose of more than 200 mg/dL in a nonstressed, ambulatory subject supports the diagnosis of Diabetes Mellitus. PERFORMED BY: [place] [address] PATHOLOGIST APPRENTICE EMBALMER MAY HYDE M.D. Performed By: #### Vandana Cramer, BMP #### [place] [address] [place] Glucose [Mass/Vol] 188 mg/dL Normal [facility] Comment on above: Result Comment: [facility] Glucose Reference Range is dependent on time and content of last meal. Glucose of more than 200 mg/dL in a nonstressed, ambulatory subject supports the diagnosis of Diabetes Mellitus. PERFORMED BY: [facility] [address] [place] [address] PATHOLOGIST APPRENTICE EMBALMER MAY HYDE M.D. Performed By: #### Vandana Cramer, BMP #### [facility] [address] [place] [id number] [facility] Magnesiumon 10-18-2024 Magnesium [Mass/Vol] 2.1 mg/dL Normal 1.9-2.7 [facility] Comment on above: Order Comment: REY PARKER NOTIFIED. SMB [id number]. Performed By: #### Vandana Cramer, KAREN, TSH3, T4F ####[facility] Serum or plasma thyroperoxid ase antibody assay (units/volume)Ordered By: Mauri Chavira on 10-18-2024 TPO Ab Qn Serum or plasma thyroperoxidase antibody assay (units/volume) 0-34 [facility] Comment on above: Performed at: [facility] [place] [id number] Director: Dimitri Landis PhD, Phone: [phone] Thyroid Peroxidase Antibodie son 10-18-2024 Thyroid Peroxidase Antibodies <9 Normal 0-34 [facility] Comment on above: Order Comment: REY PARKER NOTIFIED. SMB [id number]. Result Comment: Perf ormed at: [facility] [place] [id number] [employer]: Dimitri Landis PhD, Phone: [phone] PERFORMED BY: [place] [address] PATHOLOGIST APPRENTICE EMBALMER MAY HYDE M.D. Performed By: #### T PO #### [facility] , Thyroid Stimulating Hormoneo n 10-18-2024 TSH Qn 1.86 m[IU]/L Normal 0.45-5.33 [facility] Comment on above: Order Comment: REY PARKER NOTIFIED. SMB [id number]. Result Comment: PERF ORMED BY: [facility] [address] [facility] [place] [address] PATHOLOGIST APPRENTICE EMBALMER MAY HYDE M.D. Performed By: #### M G, BMP, TSH3, T4F ####[facility] [id number] [place] [address] [facility] Thyrotropin [Units/volume] i n Serum or PlasmaOrdered By: Mauri Chavira on 10-18-2024 TSH Qn Thyrotropin [Units/volume] in Serum or Plasma 0.45-5.33 [facility] Thyroxine (T4) free [Mass/vo lume] in Serum or PlasmaOrdered By: Mauri Chavira on 10-18-2024 Free T4 [Mass/Vol] Thyroxine (T4) free [Mass/volume] in Serum or Plasma High 0.61-1.12 [facility] Alanine aminotransferase [En zymatic activity/volume] in Serum or PlasmaOrdered By: Mauri Chavira on 10-17-2024 ALT [Catalytic activity/Vol] Alanine aminotransferase [Enzymatic activity/volume] in Serum or Plasma [facility] Albumin [Mass/volume] in Ser um or Plasma by Bromocresol green (BCG) dye binding methoOrdered By: Mauri Chavira on 10-17-2024 Albumin BCG dye [Mass/Vol] Albumin [Mass/volume] in Serum or Plasma by Bromocresol green (BCG) dye binding metho 3.5-5.7 [facility] Alkaline phosphatase [Enzyma tic activity/volume] in Serum or PlasmaOrdered By: Mauri Chavira on 10-17-2024 ALP [Catalytic activity/Vol] Alkaline phosphatase [Enzymatic activity/volume] in Serum or Plasma 34-104 [facility] Aspartate aminotransferase [ Enzymatic activity/volume] in Serum or PlasmaOrdered By: Mauri Chavira on 10-17-2024 AST [Catalytic activity/Vol] Aspartate aminotransferase [Enzymatic activity/volume] in Serum or Plasma 13-39 [facility] Basophils Auto (Bld) [#/Vol] Ordered By: Mauri Chavira on 10-17-2024 Basophils (Bld) [#/Vol] Automated basophil count 0.0-0.[address] [facility] Basophils/100 WBC Auto (Bld) Ordered By: Mauri Chavira on 10-17-2024 Basophils/100 WBC (Bld) Automated basophil % . [facility] Bilirubin.total [Mass/volume ] in Serum or PlasmaOrdered By: Mauri Chavira on 10-17-2024 Bilirubin [Mass/Vol] Bilirubin.total [Mass/volume] in Serum or Plasma 0.3-1.0 [facility] Complete Blood Count Auto Di ffon 10-17-2024 Basophils (Bld) [#/Vol] 0.1 10*3/uL Normal 0.0-0.2 [facility] Comment on above: Result Comment: PERF ORMED BY: [place] [address] PATHOLOGIST APPRENTICE EMBALMER MAY HYDE M.D. Performed By: #### Vandana Cramer, BMP #### [address] Basophils/100 WBC (Bld) 0.8 % Normal . [facility] Comment on above: Performed By: #### Vandana Cramer, BMP #### [address] Eosinophils (Bld) [#/Vol] 0.1 10*3/uL Normal 0.0-0.45 [facility] Comment on above: Performed By: #### Vandana Cramer, BMP #### [place] [address] [place] Eosinophils/100 WBC (Bld) 0.7 % Normal . [facility] Comment on above: Performed By: #### Vandana Cramer, BMP #### [address] Erythrocyte distribution width (RBC) [Ratio] 15.4 % High 11.9-15.3 [facility] Comment on above: Performed By: #### Vandana rCamer, BMP #### [address] Hematocrit (Bld) [Volume fraction] 40.4 % Normal 34.0-46.4 [facility] Comment on above: Performed By: #### Vandana G, BMP #### [address] Hemoglobin (Bld) [Mass/Vol] 13.3 g/dL Normal 11.8-15.4 [facility] Comment on above: Performed By: #### Vandana G, BMP #### [address] Lymphocytes (Bld) [#/Vol] 1.4 10*3/uL Normal 1.00-4.8 [facility] Comment on above: Performed By: #### Vandana Cramer, BMP #### [address] Lymphocytes/100 WBC (Bld) 15.2 % Normal . [facility] Comment on above: Performed By: #### Vandana Cramer, BMP #### [address] MCH (RBC) [Entitic mass] 29.3 pg Normal 24.7-34.3 [facility] Comment on above: Performed By: #### Vandana Cramer, BMP #### [address] MCV (RBC) [Entitic vol] 88.8 fL Normal 80-100 [facility] Comment on above: Performed By: #### Vandana G, BMP #### [address] Mean Corpuscular HGB Conc 33.0 g/dL Normal 32.0-35.0 [facility] Comment on above: Performed By: #### Vandana G, BMP #### [address] Monocytes (Bld) [#/Vol] 0.7 10*3/uL Normal 0.0-0.8 [facility] Comment on above: Performed By: #### Vandana G, BMP #### [facility] [address] [place] [address] [place] Monocytes/100 WBC (Bld) 7.2 % Normal . [facility] Comment on above: Performed By: #### Vandana Cramer, BMP #### [facility] [address] [place] [address] [place] Neutrophils (Bld) [#/Vol] 7.0 10*3/uL Normal 1.8-7.7 [facility] Comment on above: Performed By: #### Vandana Cramer, BMP #### [place] [address] [place] Neutrophils/100 WBC (Bld) 76.1 % Normal . [facility] Comment on above: Performed By: #### Vandana Cramer, BMP #### [address] NRBC% 0.0 /100{WBC} Normal 0-0.5 [facility] Comment on above: Performed By: #### Vandana Cramer, BMP #### [address] Platelet mean volume (Bld) [Entitic vol] 9.5 fL Normal 6.3-10.7 [facility] Comment on above: Performed By: #### M Bela, BMP #### [place] [id number] [place] Platelets (Bld) [#/Vol] 183 10*3/uL Normal 150-450 [facility] Comment on above: Performed By: #### M Bela, BMP #### [place] [id number] [place] RBC (Bld) [#/Vol] 4.55 10*6/uL Normal 3.60-5.00 [facility] Comment on above: Performed By: #### M Bela, BMP #### [place] [id number] [place] WBC (Bld) [#/Vol] 9.2 10*3/uL Normal 3.8-11.6 [facility] Comment on above: Performed By: #### M Bela, BMP #### [address] Comprehensive Metabolic Pane daniele 10-17-2024 Albumin [Mass/Vol] 3.5 g/dL Normal 3.5-5.7 [facility] Comment on above: Performed By: #### Vandana Cramer, BMP #### [place] [id number] [facility] Albumin/Globulin [Mass ratio] 0.9 {ratio} Normal [facility] Comment on above: Performed By: #### Vandana Cramer, BMP #### [address] ALP [Catalytic activity/Vol] 99 U/L Normal 34-104 [facility] Comment on above: Performed By: #### Vandana Cramer, BMP #### [address] ALT [Catalytic activity/Vol] 42 U/L Normal 7-52 [facility] Comment on above: Performed By: #### Vandana Cramer, BMP #### [address] Anion gap [Moles/Vol] 14.7 mmol/L Normal 6.0-15.0 [facility] Comment on above: Performed By: #### Vandana Cramer, BMP #### [address] AST [Catalytic activity/Vol] 35 U/L Normal 13-39 [facility] Comment on above: Performed By: #### Vandana Cramer, BMP #### [address] Bilirubin [Mass/Vol] 0.6 mg/dL Normal 0.3-1.0 [facility] Comment on above: Performed By: #### Vandana Cramer, BMP #### [address] Calcium [Mass/Vol] 9.6 mg/dL Normal 8.6-10.3 [facility] Comment on above: Performed By: #### Vandana Cramer, BMP #### [address] Chloride [Moles/Vol] 99 mmol/L Normal 98-107 [facility] Comment on above: Performed By: #### M G, BMP #### [address] CO2 [Moles/Vol] 25.3 mmol/L Normal 21.0-31.0 [facility] Comment on above: Performed By: #### M G, BMP #### [address] Creatinine [Mass/Vol] 1.99 mg/dL High 0.60-1.20 [facility] Comment on above: Performed By: #### M G, BMP #### [address] Creatinine Clr Calc Pharmacy 29.98 Normal [facility] Comment on above: Performed By: #### M G, BMP #### [address] Estimated GFR 25.252 mL/Min Normal [facility] Comment on above: Performed By: #### M G, BMP #### [address] Globulin (S) [Mass/Vol] 3.9 g/dL Normal [facility] Comment on above: Performed By: #### M G, BMP #### [address] Glucose [Mass/Vol] 228 mg/dL High 70-100 [facility] Comment on above: Result Comment: [place] Glucose Reference Range is dependent on time and content of last meal. Glucose of more than 200 mg/dL in a nonstressed, ambulatory subject supports the diagnosis of Diabetes Mellitus. ADA recommended reference range Performed By: #### M G, BMP #### [address] Potassium [Moles/Vol] 5.0 mmol/L Normal 3.5-5.1 [facility] Comment on above: Performed By: #### M G, BMP #### [address] Protein [Mass/Vol] 7.4 g/dL Normal 6.4-8.9 [facility] Comment on above: Performed By: #### Vandana Cramer, BMP #### [address] Sodium [Moles/Vol] 134 mmol/L Low 136-145 [facility] Comment on above: Performed By: #### M Bela, BMP #### [address] Urea nitrogen [Mass/Vol] 67 mg/dL High 7-25 [facility] Comment on above: Performed By: #### Vandana Cramer, BMP #### [address] Eosinophils Auto (Bld) [#/Vo l]Ordered By: Mauri Chavira on 10-17-2024 Eosinophils (Bld) [#/Vol] Automated eosinophil count 0.0-0.45 [facility] Eosinophils/100 WBC Auto (Bl d)Ordered By: Mauri Chavira on 10-17-2024 Eosinophils/100 WBC (Bld) Automated eosinophil % . [facility] Erythrocyte distribution wid th Auto (RBC) [Ratio]Ordered By: Mauri Chavira on 10-17-2024 Erythrocyte distribution width (RBC) [Ratio] Erythrocyte distribution width [Ratio] by Automated count High 11.9-15.3 [facility] Globulin Calc (S) [Mass/Vol] Ordered By: Mauri Chavira on 10-17-2024 Globulin (S) [Mass/Vol] Serum globulin measurement by calculation (mass/volume) [facility] Glucose Poct Glucometerson 1 12-18-2023 Glucose [Mass/Vol] 245 mg/dL Normal [facility] Comment on above: Result Comment: [facility] Glucose Reference Range is dependent on time and content of last meal. Glucose of more than 200 mg/dL in a nonstressed, ambulatory subject supports the diagnosis of Diabetes Mellitus. PERFORMED BY: [place] [address] PATHOLOGIST APPRENTICE EMBALMER MAY HYDE M.D. Performed By: #### G LULS #### Point of Care testing , Glucose [Mass/Vol] 335 mg/dL Normal [facility] Comment on above: Result Comment: [place] om Glucose Reference Range is dependent on time and content of last meal. Glucose of more than 200 mg/dL in a nonstressed, ambulatory subject supports the diagnosis of Diabetes Mellitus. PERFORMED BY: [place] [address] PATHOLOGIST APPRENTICE EMBALMER MAY HYDE M.D. Performed By: #### Vandana Cramer, BMP #### [address] Glucose [Mass/Vol] 324 mg/dL Normal [facility] Comment on above: Result Comment: [place] om Glucose Reference Range is dependent on time and content of last meal. Glucose of more than 200 mg/dL in a nonstressed, ambulatory subject supports the diagnosis of Diabetes Mellitus. PERFORMED BY: [place] [address] PATHOLOGIST APPRENTICE EMBALMER MAY HYDE M.D. Performed By: #### Vandana Cramer, BMP #### [address] Glucose [Mass/Vol] 253 mg/dL Normal [facility] Comment on above: Result Comment: [place] om Glucose Reference Range is dependent on time and content of last meal. Glucose of more than 200 mg/dL in a nonstressed, ambulatory subject supports the diagnosis of Diabetes Mellitus. PERFORMED BY: [place] [address] PATHOLOGIST APPRENTICE EMBALMER MAY HYDE M.D. Performed By: #### Vandana Cramer, BMP #### [address] Hematocrit Auto (Bld) [Volum e fraction]Ordered By: Mauri Chavira on 10-17-2024 Hematocrit (Bld) [Volume fraction] Hematocrit [Volume Fraction] of Blood by Automated count 34.0-46.4 [facility] Hemoglobin [Mass/volume] in BloodOrdered By: Mauri Chavira on 10-17-2024 Hemoglobin (Bld) [Mass/Vol] Hemoglobin [Mass/volume] in Blood 11.8-15.4 [facility] Leukocytes [#/volume] correc gali for nucleated erythrocytes in Blood by Automated counOrdered By: Mauri Chavira on 10-17-2024 WBC corrected for nucl RBC Auto (Bld) [#/Vol] Leukocytes [#/volume] corrected for nucleated erythrocytes in Blood by Automated coun 3.8-11.6 [facility] Lymphocytes Auto (Bld) [#/Vo l]Ordered By: Mauri Chavira on 10-17-2024 Lymphocytes (Bld) [#/Vol] Lymphocytes [#/volume] in Blood by Automated count 1.00-4.8 [facility] Lymphocytes/100 WBC Auto (Bl d)Ordered By: Mauri Chavira on 10-17-2024 Lymphocytes/100 WBC (Bld) Lymphocytes/100 leukocytes in Blood by Automated count . [facility] MCH Auto (RBC) [Entitic mass ]Ordered By: Mauri Chavira on 10-17-2024 MCH (RBC) [Entitic mass] MCH [Entitic mass] by Automated count 24.7-34.3 [facility] MCHC Auto (RBC) [Mass/Vol]Or dered By: Mauri Chavira on 10-17-2024 MCHC (RBC) [Mass/Vol] MCHC [Mass/volume] by Automated count 32.0-35.0 [facility] MCV Auto (RBC) [Entitic vol] Ordered By: Mauri Chavira on 10-17-2024 MCV (RBC) [Entitic vol] MCV [Entitic volume] by Automated count 80-100 [facility] Magnesiumon 10-17-2024 Magnesium [Mass/Vol] 1.6 mg/dL Low 1.9-2.7 [facility] Comment on above: Result Comment: PERF ORMED BY: [facility] [address] [facility] [place] [address] PATHOLOGIST APPRENTICE EMBALMER MAY HYDE M.D. Performed By: #### M Bela, BMP #### [facility] [address] [place] [id number] [facility] Monocytes Auto (Bld) [#/Vol] Ordered By: Mauri Chavira on 10-17-2024 Monocytes (Bld) [#/Vol] Automated blood monocyte count 0.0-0.8 [facility] Monocytes/100 WBC Auto (Bld) Ordered By: Mauri Chavira on 10-17-2024 Monocytes/100 WBC (Bld) Automated monocyte % . [facility] Neutrophils Auto (Bld) [#/Vo l]Ordered By: Mauri Chavira on 10-17-2024 Neutrophils (Bld) [#/Vol] Neutrophils [#/volume] in Blood by Automated count 1.8-7.7 [facility] Neutrophils/100 WBC Auto (Bl d)Ordered By: Mauri Chavira on 10-17-2024 Neutrophils/100 WBC (Bld) Automated neutrophil % . [facility] Nucleated erythrocytes [Pres ence] in Blood by Automated countOrdered By: Mauri Chavira on 10-17-2024 Nucleated RBC Auto Ql (Bld) Nucleated erythrocytes [Presence] in Blood by Automated count 0-0.5 [facility] Platelet mean volume Auto (B ld) [Entitic vol]Ordered By: Mauri Chavira on 10-17-2024 Platelet mean volume (Bld) [Entitic vol] Platelet mean volume [Entitic volume] in Blood by Automated count 6.3-10.7 [facility] Platelets Auto (Bld) [#/Vol] Ordered By: Mauri Chavira on 10-17-2024 Platelets (Bld) [#/Vol] Platelets [#/volume] in Blood by Automated count 150-450 [facility] Protein [Mass/volume] in Ser um or PlasmaOrdered By: Mauri Chavira on 10-17-2024 Protein [Mass/Vol] Protein [Mass/volume ] in Serum or Plasma 6.4-8.9 [facility] RBC Auto (Bld) [#/Vol]Ordere d By: Mauri Chavira on 10-17-2024 RBC (Bld) [#/Vol] Erythrocytes [#/volu me] in Blood by Automated count 3.60-5.00 [facility] Serum or plasma albumin/glob ulin mass ratioOrdered By: Mauri Chavira on 10-17-2024 Albumin/Globulin [Mass ratio] Serum or plasma albumin/globulin mass ratio [facility] WBC Auto (Bld) [#/Vol]Ordere d By: Mauri Chavira on 10-17-2024 WBC (Bld) [#/Vol] Leukocytes [#/volume ] in Blood by Automated count 3.8-11.6 [facility] B-Type Natriuretic Peptideon 10-16-2024 Natriuretic peptide B (Bld) [Mass/Vol] 547.0 pg/mL High 5-100 [facility] Comment on above: Result Comment: PERF ORMED BY: [facility] [address] [place] [address] PATHOLOGIST APPRENTICE EMBALMER MAY HYDE M.D. Performed By: #### M G, BMP #### [address] Basic Metabolic Panelon 12-0 Anion gap [Moles/Vol] 18.1 mmol/L High 6.0-15.0 [facility] Comment on above: Performed By: #### B MP ####[address] Calcium [Mass/Vol] 9.7 mg/dL Significant change down 8.6-10.3 [facility] Comment on above: Performed By: #### B MP ####[address] Chloride [Moles/Vol] 100 mmol/L Normal 98-107 [facility] Comment on above: Performed By: #### B MP ####[address] CO2 [Moles/Vol] 23.3 mmol/L Normal 21.0-31.0 [facility] Comment on above: Performed By: #### B MP ####[address] Creatinine [Mass/Vol] 2.14 mg/dL High 0.60-1.20 [facility] Comment on above: Performed By: #### B MP ####[place] [address] [place] [address] [facility] Creatinine Clr Calc Pharmacy 27.88 Normal [facility] Comment on above: Result Comment: PERF ORMED BY: [facility] [address] [place] [id number] PATHOLOGIST APPRENTICE EMBALMER MAY HYDE M.D. Performed By: #### B MP ####[place] [address] [place] [id number] [facility] Estimated GFR 23.142 mL/Min Normal [facility] Comment on above: Performed By: #### B MP ####[place] [address] [place] [id number] [facility] Glucose [Mass/Vol] 301 mg/dL High 70-100 [facility] Comment on above: Result Comment: [facility] Glucose Reference Range is dependent on time and content of last meal. Glucose of more than 200 mg/dL in a nonstressed, ambulatory subject supports the diagnosis of Diabetes Mellitus. ADA recommended reference range Performed By: #### B MP ####[place] [id number] [facility] Potassium [Moles/Vol] 6.4 mmol/L Off scale high 3.5-5.1 [facility] Comment on above: Result Comment: Resu lts called at 1909 on 10/16/24 Critical Result Called to and read back by: ISMA AVILA/RENETTA at: 10/16/2024 19:04:24 by:[id number] Performed By: #### B MP ####[place] [id number] [facility] Sodium [Moles/Vol] 135 mmol/L Low 136-145 [facility] Comment on above: Performed By: #### B MP ####[place] [id number] [facility] Urea nitrogen [Mass/Vol] 74 mg/dL High 7-25 [facility] Comment on above: Performed By: #### B MP ####[place] [address] [place] [id number] [facility] Anion gap [Moles/Vol] 13.8 mmol/L Normal 6.0-15.0 [facility] Comment on above: Performed By: #### Vandana Cramer, BMP #### [facility] [address] Calcium [Mass/Vol] 8.1 mg/dL Low 8.6-10.3 [facility] Comment on above: Performed By: #### Vandana Cramer, BMP #### [address] Chloride [Moles/Vol] 104 mmol/L Normal 98-107 [facility] Comment on above: Performed By: #### Vandana Cramer, BMP #### [address] CO2 [Moles/Vol] 21.5 mmol/L Normal 21.0-31.0 [facility] Comment on above: Performed By: #### Vandana Cramer, BMP #### [place] [address] [place] Creatinine [Mass/Vol] 2.25 mg/dL High 0.60-1.20 [facility] Comment on above: Performed By: #### Vandana Cramer, BMP #### [place] [address] [place] Creatinine Clr Calc Pharmacy 5.50 Normal [facility] Comment on above: Performed By: #### Vandana Cramer, BMP #### [place] [address] [place] Estimated GFR 21.792 mL/Min Normal [facility] Comment on above: Performed By: #### Vandana G, BMP #### [address] Glucose [Mass/Vol] 388 mg/dL High 70-100 [facility] Comment on above: Result Comment: [place] Glucose Reference Range is dependent on time and content of last meal. Glucose of more than 200 mg/dL in a nonstressed, ambulatory subject supports the diagnosis of Diabetes Mellitus. ADA recommended reference range Performed By: #### Vandana Cramer, BMP #### [address] Potassium [Moles/Vol] 6.3 mmol/L Off scale high 3.5-5.1 [facility] Comment on above: Result Comment: Crit ical Result Called to and read back by: LYNN KLINE at: 10/16/2024 14:01:43 by:[id number] Performed By: #### M G, BMP #### [address] Sodium [Moles/Vol] 133 mmol/L Low 136-145 [facility] Comment on above: Performed By: #### M G, BMP #### [address] Urea nitrogen [Mass/Vol] 73 mg/dL High 7-25 [facility] Comment on above: Performed By: #### Vandana G, BMP #### [address] Blood carbon dioxide, total measurement by calculation (moles/volume)Ordered By: Kavin Escobar on 10-16-2024 CO2 Calc (Bld) [Moles/Vol] Blood carbon dioxide, total measurement by calculation (moles/volume) Low 23-29 [facility] Chloride (Bld) [Moles/Vol]Or dered By: Kavin Escobar on 10-16-2024 Chloride [Moles/Vol] Whole blood chlorid e measurement 98-109 [facility] Complete Blood Count Auto Di ffon 10-16-2024 Basophils (Bld) [#/Vol] 0.1 10*3/uL Normal 0.0-0.2 [facility] Comment on above: Result Comment: PERF ORMED BY: [place] [address] PATHOLOGIST APPRENTICE EMBALMER MAY HYDE M.D. Performed By: #### Vandana G, BMP #### [address] Basophils/100 WBC (Bld) 0.7 % Normal . [facility] Comment on above: Performed By: #### M G, BMP #### [facility] [address] [place] [address] [place] Eosinophils (Bld) [#/Vol] 0.1 10*3/uL Normal 0.0-0.45 [facility] Comment on above: Performed By: #### M G, BMP #### [facility] [address] [place] [id number] [place] Eosinophils/100 WBC (Bld) 0.6 % Normal . [facility] Comment on above: Performed By: #### M G, BMP #### [address] Erythrocyte distribution width (RBC) [Ratio] 15.2 % Normal 11.9-15.3 [facility] [facility] Comment on above: Performed By: #### M G, BMP #### [address] Hematocrit (Bld) [Volume fraction] 35.5 % Normal 34.0-46.4 [facility] Comment on above: Performed By: #### M G, BMP #### [address] Hemoglobin (Bld) [Mass/Vol] 11.6 g/dL Low 11.8-15.4 [facility] Comment on above: Performed By: #### M G, BMP #### [place] [address] [place] Lymphocytes (Bld) [#/Vol] 1.2 10*3/uL Normal 1.00-4.8 [facility] Comment on above: Performed By: #### M G, BMP #### [place] [id number] [place] Lymphocytes/100 WBC (Bld) 12.5 % Normal . [facility] Comment on above: Performed By: #### M G, BMP #### [address] MCH (RBC) [Entitic mass] 29.0 pg Normal 24.7-34.3 [facility] Comment on above: Performed By: #### M G, BMP #### [address] MCV (RBC) [Entitic vol] 89.1 fL Normal 80-100 [facility] Comment on above: Performed By: #### M G, BMP #### [address] Mean Corpuscular HGB Conc 32.6 g/dL Normal 32.0-35.0 [facility] Comment on above: Performed By: #### Vandana G, BMP #### [place] [address] [place] Monocytes (Bld) [#/Vol] 0.7 10*3/uL Normal 0.0-0.8 [facility] Comment on above: Performed By: #### Vandana G, BMP #### [place] [address] [place] Monocytes/100 WBC (Bld) 18.11 % Normal 0.00-20.00 [facility] Comment on above: Performed By: #### Vandana G, BMP #### [place] [address] [place] Monocytes/100 WBC (Bld) 6.8 % Normal . [facility] Comment on above: Performed By: #### Vandana G, BMP #### [address] Neutrophils (Bld) [#/Vol] 8.0 10*3/uL High 1.8-7.7 [facility] Comment on above: Performed By: #### Vandana G, BMP #### [place] [address] [place] Neutrophils/100 WBC (Bld) 79.4 % Normal . [facility] Comment on above: Performed By: #### Vandana G, BMP #### [address] NRBC% 0.1 /100{WBC} Normal 0-0.5 [facility] Comment on above: Performed By: #### Vandana G, BMP #### [facility] [address] [place] [id number] [facility] Platelet mean volume (Bld) [Entitic vol] 9.7 fL Normal 6.3-10.7 [facility] Comment on above: Performed By: #### M G, BMP #### [facility] [address] [place] [address] [facility] Platelets (Bld) [#/Vol] 181 10*3/uL Normal 150-450 [facility] Comment on above: Performed By: #### M G, BMP #### [facility] [address] [place] [id number] [facility] RBC (Bld) [#/Vol] 3.98 10*6/uL Normal 3.60-5.00 [facility] Comment on above: Performed By: #### M G, BMP #### [facility] [address] [place] [id number] [facility] WBC (Bld) [#/Vol] 10.0 10*3/uL Normal 3.8-11.6 [facility] Comment on above: Performed By: #### Vandana G, BMP #### [address] Creatine Kinaseon 10-16-2024 CK [Catalytic activity/Vol] 37 U/L Normal 30-223 [facility] Comment on above: Performed By: #### M G, BMP #### [place] [id number] [facility] Creatine kinase [Enzymatic a ctivity/volume] in Serum or PlasmaOrdered By: Jorge Luis Zavala on 10-16-2024 CK [Catalytic activity/Vol] Creatine kinase [Enzymatic activity/volume] in Serum or Plasma 30- [facility] Creatinine (Bld) [Mass/Vol]O rdered By: Kavin Escobar on 10-16-2024 Creatinine [Mass/Vol] Whole blood creati nine measurement High 0.6-1.3 [facility] Comment on above: ER/ESD physician is notified/shown all ISTAT results.Critical values may be confirmed by laboratory testing ifdeemed necessary by ER attending doctor. ECG 12 lead ECGon 10-16-2024 ECG 12 lead ECG [facility] Main [address] [address] Electrocardiograph Report Signed Patient: Joe Call MR#: [id number] 0 : 1945 Acct:[id number] Age/Sex: 79 / F ADM Date: 10/16/24 Loc: Room: [address] [place] [address] Type: DIS IN Attending Dr: Kavin Escobar [...] Moreno MD 1 12/24/23 1516 Normal [facility] ECG 12 lead ECG [address] [address] Electrocardiograph Report Signed Patient: Joe Call MR#: [id number] 0 : 1945 Acct:[id number] Age/Sex: 79 / F ADM Date: 10/16/24 Loc: Room: 2O3669-6 Type: ADM IN Attending Dr: Mauri Chavira DO Ordering Provider: Jorge Luis Zavala DO Date of Service: 10/16/2404/04/1334 ECG/ECG 12 lead ECG: Nausea/Vomiting/Diarrhea Copies to: Test Reason : Blood Pressure [...] Jorge Luis Zavala DO 1925 Normal [facility] ECG 12 lead ECG [facility] Main [place] [address] [place] [address] Electrocardiograph Report Signed Patient: Joe Call MR#: [id number] 0 : 1945 Acct:[id number] Age/Sex: 79 / F ADM Date: 10/16/24 Loc: Room: [address] [place] [address] Type: ADM IN Attending Dr: Mauri Chavira DO Ordering Provider: Jorge Luis Zavala DO Date of Service: 10/16/2404/04/1322 ECG/ECG 12 lead ECG: Nausea/Vomiting/Diarrhea Copies to: Test Reason : Blood Pressure [...] Jorge Luis Zavala DO 1926 Normal [facility] Glucose Glucometer (BldC) [M ass/Vol]Ordered By: Kavin Escobar on 10-16-2024 Glucose [Mass/Vol] Capillary blood gluc ose measurement by glucometer (mass/volume) High 70-105 [facility] Glucose Poct Glucometerson 1 12-17-2023 Glucose [Mass/Vol] 266 mg/dL Normal [facility] Comment on above: Result Comment: [place] Glucose Reference Range is dependent on time and content of last meal. Glucose of more than 200 mg/dL in a nonstressed, ambulatory subject supports the diagnosis of Diabetes Mellitus. PERFORMED BY: [place] [address] PATHOLOGIST APPRENTICE EMBALMER MAY HYDE M.D. Performed By: #### M G, BMP #### [address] Hemoglobin Calc (Bld) [Mass/ Vol]Ordered By: Kavin Escobar on 10-16-2024 Hemoglobin (Bld) [Mass/Vol] Blood hemoglobin measurement by calculation (mass/volume) 12.0-17.0 [facility] INR in Platelet poor plasma by Coagulation assayOrdered By: Jorge Luis Zavala on 10-16-2024 INR Coag (PPP) [Relative time] INR in Platelet poor plasma by Coagulation assay [facility] Comment on above: INR Therapeutic Rang e A) Pre- and Peroperative OAT started two weeks before surgery. NOT HIP SURGERY: 1.5 - 2.5 HIP SURGERY: 2 - 3B) Primary and secondary prevention of venous THROMBOSIS: 2 - 3C) Active venous thrombosis, pulmonary embolismand prevention of recurrent venous thrombosis: 2 - 3D) Prevention of arterial thromboembolismincluding patients with mechanical heart valves: 3 - 4.5 ISTAT ER Chem8+ Panelon Chloride [Moles/Vol] 104.0 mmol/L Normal 98-109 [facility] Comment on above: Performed By: #### G LULS #### Point of Care testing , CO2 [Moles/Vol] 22 mmol/L Low 23-29 [facility] Comment on above: Performed By: #### G LULS #### Point of Care testing , Creatinine [Mass/Vol] 2.3 mg/dL High 0.6-1.3 [facility] Comment on above: Result Comment: ER/E SD physician is notified/shown all ISTAT results. Critical values may be confirmed by laboratory testing if deemed necessary by ER attending doctor. Performed By: #### G LULS #### Point of Care testing , Glucose [Mass/Vol] 390 mg/dL High 70-105 [facility] Comment on above: Result Comment: PERF ORMED BY: [place] [address] PATHOLOGIST APPRENTICE EMBALMER MAY HYDE M.D. Performed By: #### G LULS #### Point of Care testing , Hemoglobin (Bld) [Mass/Vol] 12.2 g/dL Normal 12.0-17.0 [facility] Comment on above: Performed By: #### G LULS #### Point of Care testing , ISTAT Ionized Calcium 1.11 mol/L Low 1.12-1.32 [facility] Comment on above: Performed By: #### G LULS #### Point of Care testing , Potassium [Moles/Vol] 6.4 mmol/L Off scale high 3.5-4.9 [facility] Comment on above: Performed By: #### G LULS #### Point of Care testing , Sodium [Moles/Vol] 134 mmol/L Low 138-146 [facility] Comment on above: Performed By: #### G LULS #### Point of Care testing , Urea nitrogen [Mass/Vol] 69 mg/dL High 8-26 [facility] Comment on above: Performed By: #### G LULS #### Point of Care testing , ISTAT ER Chem8+ PanelOrdered By: Kavin Escobar on 10-16-2024 Hematocrit (Bld) [Volume fraction] 36.0 % Low 38.0-51.0 [facility] Comment on above: Performed By: #### G LULS #### Point of Care testing , Magnesiumon 10-16-2024 Magnesium [Mass/Vol] 1.4 mg/dL Low 1.9-2.7 [facility] Comment on above: Result Comment: PERF ORMED BY: [address] [place] [address] PATHOLOGIST APPRENTICE EMBALMER MAY HYDE M.D. Performed By: #### Vandana Cramer, BMP #### [facility] [address] [place] [address] [facility] Monocyte distribution width [Entitic volume] in Blood by AutomatedOrdered By: Jorge Luis Zavala on 10-16-2024 Monocyte distribution width Auto (Bld) [Entitic vol] Monocyte distribution width [Entitic volume] in Blood by Automated 0.00-20.00 [facility] Natriuretic peptide B [Mass/ Vol]Ordered By: Jorge Luis Zavala on 10-16-2024 Natriuretic peptide B (Bld) [Mass/Vol] BNP ser/plas High 5-100 [facility] Potassium (Bld) [Moles/Vol]O rdered By: Kavin Escobar on 10-16-2024 Potassium [Moles/Vol] Whole blood potass ium measurement Critically high 3.5-4.9 [facility] Prothrombin Time INRon 10-16 INR Coag (PPP) [Relative time] 2.6 {INR} Normal [facility] Comment on above: Result [...] heart valves: 3 - 4.5 PERFORMED BY: [address] [place] [address] PATHOLOGIST APPRENTICE EMBALMER MAY HYDE M.D. Performed By: #### Vandana Cramer, BMP #### [facility] [address] [place] [id number] [facility] PT Coag (PPP) [Time] 28.9 s High 9.0-12.9 [facility] Comment on above: Result Comment: A he matocrit value greater than 55% may lead to inaccurate results in coagulation testing. Patients having hematocrit values >55% require a special collection tube for coagulation studies. Please contact the laboratory at [phone] for redraw instructions. Performed By: #### KAREN Hansen #### [facility] [address] [place] [address] Prothrombin time (PT)Ordered By: Jorge Luis Zavala on 10-16-2024 PT Coag (PPP) [Time] Prothrombin time (PT) High 9.0- 12.9 [facility] Comment on above: A hematocrit value g reater than 55% may lead to inaccurate results in coagulation testing. Patients having hematocrit values >55% require a special collection tube for coagulation studies. Please contact the laboratory at [phone] for redraw instructions. Sodium (Bld) [Moles/Vol]Orde red By: Kavin Escobar on 10-16-2024 Sodium [Moles/Vol] Whole blood sodium measurement Low 138-146 [facility] Troponin I High Sensitivityo n 10-16-2024 Troponin I High Sensitivity 9.9 pg/mL Normal 0.0-15.0 [facility] Comment on above: Result Comment: PERF ORMED BY: [address] [place] [address] PATHOLOGIST APPRENTICE EMBALMER MAY HYDE M.D. Performed By: #### KAREN Hansen #### [address] Troponin I.cardiac [Mass/vol ume] in Serum or Plasma by Detection limit <= 0.01 ng/Ordered By: Jorge Luis Zavala on 10-16-2024 Troponin I.cardiac DL <= 0.01 ng/mL [Mass/Vol] Troponin I.cardiac [Mass/volume] in Serum or Plasma by Detection limit <= 0.01 ng/ 0.0-15.0 [facility] Urea nitrogen (Bld) [Mass/Vo l]Ordered By: Kavin Escobar on 10-16-2024 Urea nitrogen [Mass/Vol] Blood urea nitrogen (BUN) measurement in whole blood (mass/volume) High 8-26 [facility] Whole blood ionized calcium measurement (moles/volume)Ordered By: Kavin Escobar on 10-16-2024 Calcium.ionized (Bld) [Moles/Vol] Whole blood ionized calcium measurement (moles/volume) Low 1.12-1.32 [facility] XR chest 1V portableon 10-16 XR chest 1V portable [facility] Main [place] [address] [place] [address] XRay Report Signed Patient: Joe Call MR#: [id number] 0 : 1945 Acct:[id number] Age/Sex: 79 / F ADM Date: 10/16/24 Loc: ER Room: Type: [facility] ER Attending Dr: Copies to: Jorge Luis Zavala DO Ordering Provider: Jorge Luis Zavala DO Date of Service: 10/16/24 XR/XR chest 1V portable: Nausea/Vomiting/Diarrhea Plain film chest Single view HISTORY: Nausea [...] Jarred Randolph M.D.10/16/2024 2:10 PM Dictation Location: [facility]-- Transcribed By: [facility] 10/16/24 1410 Dictated By: Jarred Randolph DO 10/16/24 1407 Signed By: 10/16/[address] [facility] 37on 10-08-2024 37 *Cut lisinopril in h [facility] to 10mg daily. *Follow-up labs in 2 weeks. *Limit fluid intake to 64oz or 2 liters a day. Normal [facility] Office Visiton 10-08-2024 Follow-up visit [id number] Joe Call 1945 F Date Provider Department Center 10/08/2024 YAMEL OCAMPO Family History Problem Relation Age of Onset Coronary artery disease Other Diabetes Other Polycystic kidney disease Other Family Status - Relation Status Age at Other Level of Service:28306 [place] OFFICE/OUTPATIENT ESTABLISHED MOD MDM 30 MIN Reason for Visit and Comments: Congestive Heart Failure [127] Hypertension [037810] Atrial Fibrillation [80] Normal [facility] Estimated glomerular filtrat ion rate (GFR) non- Americanon 09-29-2024 GFR/1.73 sq M.predicted among non-blacks MDRD (S/P/Bld) [Vol rate/Area] Estimated glomerular filtration rate (GFR) non- Low >=60 mL/min/1.73 m 2 [facility] Laboratory - Chemistry and C hemistry - challengeon 09-29-2024 Calcium [Mass/Vol] 8.8 mg/dL 8.5-10.1 [facility] Chloride [Moles/Vol] 102 mmol/L 98-107 [facility] CO2 [Moles/Vol] 24.9 mmol/L 21.0-32.0 [facility] Creatinine [Mass/Vol] 1.92 mg/dL High 0.55-1.[address] [facility] GFR/1.73 sq M.predicted MDRD (S/P/Bld) [Vol rate/Area] 31 mL/min/{1.73_m2} Low >=60 mL/min/1.73 m 2 [facility] Glucose [Mass/Vol] 387 mg/dL High 74-106 [facility] Potassium [Moles/Vol] 5.0 mmol/L 3.5-5.[address] [facility] Sodium [Moles/Vol] 136 mmol/L 136-145 [facility] Urea nitrogen [Mass/Vol] 64.0 mg/dL High 7.0-18.0 [facility] Urea nitrogen/Creatinine [Mass ratio] 33.3 mg/mg [facility] Serum or plasma anion gap de terminationon 09-29-2024 Anion gap [Moles/Vol] Serum or plasma an ion gap determination [facility] 37on 09-03-2024 37 *Your kidney functio n worsened. Please hold your lasix for 2 days and resume on 09/06/24 and only take 40mg once a day in the morning. *Hold your lisinopril. *Have follow-up lab work in 1 week to recheck your kidney function. *Let cardiology know if you have any weight gain or worsening shortness of breath or worsening leg swelling. Normal [facility] Office Visiton 09-03-2024 Follow-up visit [id number] Joe Call 1945 F Date Provider Department Center 09/03/2024 YAMEL OCAMPO Family History Problem Relation Age of Onset Coronary artery disease Other Diabetes Other Polycystic kidney disease Other Family Status - Relation Status Age at Other Level of Service:47680 [place] OFFICE/OUTPATIENT ESTABLISHED MOD MDM 30 MIN Reason for Visit and Comments: Congestive Heart Failure [127] Atrial Fibrillation [80] Hypertension [105205] Normal [facility] Office Visiton 08-20-2024 Follow-up visit [id number] Joe Call 1945 F Date Provider Department Center 08/20/2024 YAMEL OCAMPO Family History Problem Relation Age of Onset Coronary artery disease Other Diabetes Other Polycystic kidney disease Other Family Status - Relation Status Age at Other Level of Service:61788 [place] OFFICE/OUTPATIENT ESTABLISHED MOD MDM 30 MIN Reason for Visit and Comments: Congestive Heart Failure [127] Normal [facility] Basophils Auto (Bld) [#/Vol] on 07-25-2024 Basophils (Bld) [#/Vol] 0.1 10 3/uL 0.0-0.1 [facility] Basophils/100 WBC Auto (Bld) on 07-25-2024 Basophils/100 WBC (Bld) 1.2 % 0.2-2.0 [facility] Eosinophils/100 WBC Auto (Bl d)on 07-25-2024 Eosinophils/100 WBC (Bld) 1.6 % 0.9-7.0 [facility] Erythrocyte distribution wid th Auto (RBC) [Ratio]on 07-25-2024 Erythrocyte distribution width (RBC) [Ratio] 13.7 % 11.0-15.0 [facility] Estimated glomerular filtrat ion rate (GFR) non- Americanon 07-25-2024 GFR/1.73 sq M.predicted among non-blacks MDRD (S/P/Bld) [Vol rate/Area] 47 mL/min/{1.73_m2} Low >=60 [facility] Globulin Calc (S) [Mass/Vol] on 07-25-2024 Globulin (S) [Mass/Vol] 4.7 g/dL [facility] Hematocrit Auto (Bld) [Volum e fraction]on 07-25-2024 Hematocrit (Bld) [Volume fraction] 33.6 % Low 36.0-48.0 [facility] Hemoglobin [Mass/volume] in Bloodon 07-25-2024 Hemoglobin (Bld) [Mass/Vol] 11.0 g/dL Low 12.0-16.0 [facility] Laboratory - Chemistry and C hemistry - challengeon 07-25-2024 Albumin [Mass/Vol] 2.3 g/dL Low 3.4-5.0 [facility] ALP [Catalytic activity/Vol] 101 U/L 46-116 [facility] ALT [Catalytic activity/Vol] 14 U/L 14-59 [facility] AST [Catalytic activity/Vol] 13 U/L Low 15-37 [facility] Bilirubin [Mass/Vol] 0.8 mg/dL 0.2-1.0 [facility] Calcium [Mass/Vol] 8.6 mg/dL 8.5-10.1 [facility] Chloride [Moles/Vol] 102 mmol/L 98-107 [facility] CO2 [Moles/Vol] 27.8 mmol/L 21.0-32.0 [facility] Creatinine [Mass/Vol] 1.13 mg/dL High 0.55-1.[address] [facility] GFR/1.73 sq M.predicted MDRD (S/P/Bld) [Vol rate/Area] 56 mL/min/{1.73_m2} Low >=60 [facility] Glucose [Mass/Vol] 228 mg/dL High 74-106 [facility] Potassium [Moles/Vol] 3.7 mmol/L 3.5-5.[address] [facility] Protein [Mass/Vol] 7.0 g/dL 6.4-8.2 [facility] Sodium [Moles/Vol] 140 mmol/L 136-145 [facility] Urea nitrogen [Mass/Vol] 26.0 mg/dL High 7.0-18.0 [facility] Urea nitrogen/Creatinine [Mass ratio] 23.0 mg/mg [facility] Laboratory - Hematology and Cell countson 07-25-2024 Immature granulocytes/100 WBC (Bld) 0.2 % 0.0-0.5 [facility] Leukocytes [#/volume] correc gali for nucleated erythrocytes in Blood by Automated counon 07-25-2024 WBC corrected for nucl RBC Auto (Bld) [#/Vol] 8.7 10 3/uL 4.0-11.0 [facility] Lymphocytes Auto (Bld) [#/Vo l]on 07-25-2024 Lymphocytes (Bld) [#/Vol] 1.4 10 3/uL 1.2-3.8 [facility] Lymphocytes/100 WBC Auto (Bl d)on 07-25-2024 Lymphocytes/100 WBC (Bld) 15.9 % Low 20.5-60.0 [facility] MCH Auto (RBC) [Entitic mass ]on 07-25-2024 MCH (RBC) [Entitic mass] 29.7 pg 26.7-34.0 [facility] MCHC Auto (RBC) [Mass/Vol]on 07-25-2024 MCHC (RBC) [Mass/Vol] 32.7 g/dL 29.9-35.[address] [facility] MCV Auto (RBC) [Entitic vol] on 07-25-2024 MCV (RBC) [Entitic vol] 90.8 fL 81.0-99.0 [facility] Monocytes Auto (Bld) [#/Vol] on 07-25-2024 Monocytes (Bld) [#/Vol] 0.7 10 3/uL 0.3-0.8 [facility] Monocytes/100 WBC Auto (Bld) on 07-25-2024 Monocytes/100 WBC (Bld) 8.2 % 1.7-12.0 [facility] Neutrophils Auto (Bld) [#/Vo l]on 07-25-2024 Neutrophils (Bld) [#/Vol] 6.3 10 3/uL 1.4-6.5 [facility] Neutrophils/100 WBC Auto (Bl d)on 07-25-2024 Neutrophils/100 WBC (Bld) 72.9 % 43.0-75.0 [facility] No Panel Informationon 07-25 Eosinophils # (Auto) 0.1 10 3/uL 0.0-0.[address] [facility] Immature Granulocyte # (Auto) 0.02 10 3/uL 0.00-0.03 [facility] Platelet mean volume Auto (B ld) [Entitic vol]on 07-25-2024 Platelet mean volume (Bld) [Entitic vol] 10.3 fL 9.5-13.5 [facility] Platelets Auto (Bld) [#/Vol] on 07-25-2024 Platelets (Bld) [#/Vol] 239 10 3/uL 150-450 [facility] RBC Auto (Bld) [#/Vol]on RBC (Bld) [#/Vol] 3.70 10 6/uL Low 4.20-5.40 [facility] Serum or plasma albumin/glob ulin mass ratioon 07-25-2024 Albumin/Globulin [Mass ratio] 0.5 {ratio} [facility] Serum or plasma anion gap de terminationon 07-25-2024 Anion gap [Moles/Vol] 13.9 [facility] Basophils Auto (Bld) [#/Vol] on 07-24-2024 Basophils (Bld) [#/Vol] 0.1 10 3/uL 0.0-0.1 [facility] Basophils/100 WBC Auto (Bld) on 07-24-2024 Basophils/100 WBC (Bld) 0.7 % 0.2-2.0 [facility] Eosinophils/100 WBC Auto (Bl d)on 07-24-2024 Eosinophils/100 WBC (Bld) 1.7 % 0.9-7.0 [facility] Erythrocyte distribution wid th Auto (RBC) [Ratio]on 07-24-2024 Erythrocyte distribution width (RBC) [Ratio] 13.7 % 11.0-15.0 [facility] Estimated glomerular filtrat ion rate (GFR) non- Americanon 07-24-2024 GFR/1.73 sq M.predicted among non-blacks MDRD (S/P/Bld) [Vol rate/Area] 48 mL/min/{1.73_m2} Low >=60 [facility] Hematocrit Auto (Bld) [Volum e fraction]on 07-24-2024 Hematocrit (Bld) [Volume fraction] 34.5 % Low 36.0-48.0 [facility] Hemoglobin [Mass/volume] in Bloodon 07-24-2024 Hemoglobin (Bld) [Mass/Vol] 11.2 g/dL Low 12.0-16.0 [facility] Laboratory - Chemistry and C hemistry - challengeon 07-24-2024 Calcium [Mass/Vol] 8.9 mg/dL 8.5-10.1 [facility] Chloride [Moles/Vol] 104 mmol/L 98-107 [facility] CO2 [Moles/Vol] 26.1 mmol/L 21.0-32.0 [facility] Creatinine [Mass/Vol] 1.11 mg/dL High 0.55-1.[address] [facility] GFR/1.73 sq M.predicted MDRD (S/P/Bld) [Vol rate/Area] 58 mL/min/{1.73_m2} Low >=60 [facility] Glucose [Mass/Vol] 247 mg/dL High 74-106 [facility] Natriuretic peptide B (Bld) [Mass/Vol] 6277.0 pg/mL High <=1800.0 [facility] Comment on above: RESULTS CALLED TO YOEL STEWARD RN IN ER BY Mira Martinez at 1430 Potassium [Moles/Vol] 4.1 mmol/L 3.5-5.[address] [facility] Sodium [Moles/Vol] 141 mmol/L 136-145 [facility] Urea nitrogen [Mass/Vol] 28.0 mg/dL High 7.0-18.0 [facility] Urea nitrogen/Creatinine [Mass ratio] 25.2 mg/mg [facility] Laboratory - Hematology and Cell countson 07-24-2024 Immature granulocytes/100 WBC (Bld) 0.3 % 0.0-0.5 [facility] Leukocytes [#/volume] correc gali for nucleated erythrocytes in Blood by Automated counon 07-24-2024 WBC corrected for nucl RBC Auto (Bld) [#/Vol] 9.7 10 3/uL 4.0-11.0 [facility] Lymphocytes Auto (Bld) [#/Vo l]on 07-24-2024 Lymphocytes (Bld) [#/Vol] 0.9 10 3/uL Low 1.2-3.8 [facility] Lymphocytes/100 WBC Auto (Bl d)on 07-24-2024 Lymphocytes/100 WBC (Bld) 9.2 % Low 20.5-60.0 [facility] MCH Auto (RBC) [Entitic mass ]on 07-24-2024 MCH (RBC) [Entitic mass] 29.9 pg 26.7-34.0 [facility] MCHC Auto (RBC) [Mass/Vol]on 07-24-2024 MCHC (RBC) [Mass/Vol] 32.5 g/dL 29.9-35.[address] [facility] MCV Auto (RBC) [Entitic vol] on 07-24-2024 MCV (RBC) [Entitic vol] 92.0 fL 81.0-99.0 [facility] Monocytes Auto (Bld) [#/Vol] on 07-24-2024 Monocytes (Bld) [#/Vol] 0.5 10 3/uL 0.3-0.8 [facility] Monocytes/100 WBC Auto (Bld) on 07-24-2024 Monocytes/100 WBC (Bld) 5.3 % 1.7-12.0 [facility] Neutrophils Auto (Bld) [#/Vo l]on 07-24-2024 Neutrophils (Bld) [#/Vol] 8.0 10 3/uL High 1.4-6.5 [facility] Neutrophils/100 WBC Auto (Bl d)on 07-24-2024 Neutrophils/100 WBC (Bld) 82.8 % High 43.0-75.0 [facility] No Panel Informationon 07-24 Eosinophils # (Auto) 0.2 10 3/uL 0.0-0.[address] [facility] Immature Granulocyte # (Auto) 0.03 10 3/uL 0.00-0.03 [facility] Troponin I High Sensitivity 20.5 pg/mL 4.0-51.3 [facility] Comment on above: CUT-OFF POINTS HAVE BEEN [...] volume (Bld) [Entitic vol] 10.4 fL 9.5-13.5 [facility] Platelets Auto (Bld) [#/Vol] on 07-24-2024 Platelets (Bld) [#/Vol] 236 10 3/uL 150-450 [facility] RBC Auto (Bld) [#/Vol]on RBC (Bld) [#/Vol] 3.75 10 6/uL Low 4.20-5.40 [facility] Serum or plasma anion gap de terminationon 07-24-2024 Anion gap [Moles/Vol] 15.0 mmol/L [facility] Urine Cultureon 07-17-2024 Bacteria identified Cx Nom (U) ORGANISM: Citrobacter freundii complex (O:CITFRC) [place] Count >100,000 ORGANISM: Proteus mirabilis (O:PROMIR) [place] Count 20,000 Aerobic MIRTHA Charge (NMIC56) - SUSCEPTIBILITY ORGANISM: O:CITFRC ANTIBIOTIC INTERPRETATION MIRTHA Amikacin S <16 Aztreonam IB <4 Cefepime S <2 Ceftazidime IB <1 Ceftazidime/Avibactam S <4 Ceftriaxone IB <1 Ciprofloxacin S <0.25 Ertapenem S <0.5 Gentamicin S <2 Levofloxacin S <0.5 Meropenem S <1 Nitrofurantoin S <32 Piperacillin/Tazobactam IB <8 Tetracycline S <4 Tigecycline S <2 Tobramycin S <2 Trimethoprim/Sulfamethox azole S <0.5 Aerobic MIRTHA Charge (NMIC56) - SUSCEPTIBILITY ORGANISM: O:PROMIR ANTIBIOTIC INTERPRETATION MIRTHA Amikacin S <16 Amoxacillin/K Clavulanate S <8 Ampicillin S <8 Ampicillin/Sulbactam S <4 Aztreonam S <4 Cefazolin S <2 Cefepime S <2 Ceftazidime S <1 Ceftazidime/Avibactam S <4 Ceftolozane/Tazobactam S <2 Ceftriaxone S <1 Cefuroxime S <4 Ciprofloxacin S <0.25 Ertapenem S <0.5 Gentamicin S <2 Levofloxacin S <0.5 Meropenem S <1 Meropenem/Vaborbactam S <2 Piperacillin/Tazobactam S <8 Tobramycin S <2 Trimethoprim/Sulfamethox azole S <0.5 S = SUSCEPTIBLE I = [...] RESISTANT TO ALL B-LACTAM DRUGS. PERFORMED BY: [facility] [id number] [place] [address] PATHOLOGIST APPRENTICE EMBALMER CHOLO YEAGER M.D. Normal [facility] Comment on above: Performed By: #### M G, BMP #### [facility] [address] Urine culture routineOrdered By: Shantel Steven on 07-17-2024 Bacteria identified Cx Nom (U) Proteus mirabilis Abnormal [facility] Erythrocyte distribution wid th Auto (RBC) [Ratio]on 07-15-2024 Erythrocyte distribution width (RBC) [Ratio] 13.3 % 11.0-15.0 [facility] Estimated glomerular filtrat ion rate (GFR) non- Americanon 07-15-2024 GFR/1.73 sq M.predicted among non-blacks MDRD (S/P/Bld) [Vol rate/Area] 47 mL/min/{1.73_m2} Low >=60 [facility] Globulin Calc (S) [Mass/Vol] on 07-15-2024 Globulin (S) [Mass/Vol] 4.2 g/dL [facility] Hematocrit Auto (Bld) [Volum e fraction]on 07-15-2024 Hematocrit (Bld) [Volume fraction] 34.9 % Low 36.0-48.0 [facility] Hemoglobin [Mass/volume] in Bloodon 07-15-2024 Hemoglobin (Bld) [Mass/Vol] 11.6 g/dL Low 12.0-16.0 [facility] Laboratory - Chemistry and C hemistry - challengeon 07-15-2024 Bilirubin Ql (U) Negative NEGATIVE [facility] Glucose (U) [Mass/Vol] [facility] Ketones Ql (U) Negative NEGATIVE [facility] pH (U) 6.5 [pH] 5.0-9.0 [facility] Specific gravity (U) [Rel density] 1.020 1.005-1.025 [facility] Urobilinogen Qn (U) 0.2 {Meka'U}/dL 0.2-1.0 [facility] Albumin [Mass/Vol] 2.6 g/dL Low 3.4-5.0 [facility] ALP [Catalytic activity/Vol] 87 U/L 46-116 [facility] ALT [Catalytic activity/Vol] 18 U/L 14-59 [facility] AST [Catalytic activity/Vol] 14 U/L Low 15-37 [facility] Bilirubin [Mass/Vol] 0.6 mg/dL 0.2-1.0 [facility] Calcium [Mass/Vol] 8.6 mg/dL 8.5-10.1 [facility] Chloride [Moles/Vol] 101 mmol/L 98-107 [facility] CO2 [Moles/Vol] 31.4 mmol/L 21.0-32.0 [facility] Creatinine [Mass/Vol] 1.12 mg/dL High 0.55-1.[address] [facility] GFR/1.73 sq M.predicted MDRD (S/P/Bld) [Vol rate/Area] 57 mL/min/{1.73_m2} Low >=60 [facility] Glucose [Mass/Vol] 153 mg/dL High 74-106 [facility] Natriuretic peptide B (Bld) [Mass/Vol] 3410.0 pg/mL High <=1800.0 [facility] Comment on above: RESULTS CALLED TO Bogdan Robin RN at 0840 Potassium [Moles/Vol] 3.6 mmol/L 3.5-5.[address] [facility] Protein [Mass/Vol] 6.8 g/dL 6.4-8.2 [facility] Sodium [Moles/Vol] 141 mmol/L 136-145 [facility] Urea nitrogen [Mass/Vol] 43.0 mg/dL High 7.0-18.0 [facility] Urea nitrogen/Creatinine [Mass ratio] 38.4 mg/mg [facility] Laboratory - Specimen inform ationon 07-15-2024 Appearance (U) CLEAR CLEAR [facility] Color (U) LT. YELLOW YELLOW [facility] Laboratory - Urinalysison Leukocyte esterase Test strip Ql (U) Negative NEGATIVE [facility] Mucus Ql (Urine sed) NONE SEEN NONE SEEN [facility] Nitrite Ql (U) Negative NEGATIVE [facility] Protein Ql (U) 100 mg/dL Abnormal NEG/TRACE [facility] Leukocytes [#/volume] correc gali for nucleated erythrocytes in Blood by Automated counon 07-15-2024 WBC corrected for nucl RBC Auto (Bld) [#/Vol] 8.5 10 3/uL 4.0-11.0 [facility] MCH Auto (RBC) [Entitic mass ]on 07-15-2024 MCH (RBC) [Entitic mass] 29.9 pg 26.7-34.0 [facility] MCHC Auto (RBC) [Mass/Vol]on 07-15-2024 MCHC (RBC) [Mass/Vol] 33.2 g/dL 29.9-35.[address] [facility] MCV Auto (RBC) [Entitic vol] on 07-15-2024 MCV (RBC) [Entitic vol] 89.9 fL 81.0-99.0 [facility] No Panel Informationon 07-15 Urine Bacteria NONE SEEN #/HPF NONE SEEN [facility] Urine Occult Blood TRACE-I NEGATIVE [facility] Urine RBC 0-2 #/HPF 0-2 [facility] Urine Squamous Epithelial Cells FEW #/LPF Abnormal NONE/RARE [facility] Urine WBC NONE SEEN #/HPF NONE SEEN [facility] NONE SEEN #/HPF NONE SEEN [facility] Negative NEGATIVE [facility] TRACE-I NEGATIVE [facility] CLEAR CLEAR [facility] LT. YELLOW YELLOW [facility] NONE SEEN NONE SEEN [facility] 6.5 5.0-9.0 [facility] 100 mg/dL Abnormal NEG/TRACE [facility] 0-2 #/HPF 0-2 [facility] 1.020 1.005-1.025 [facility] FEW #/LPF Abnormal NONE/RARE [facility] 0.2 EU/dL 0.2-1.0 [facility] Troponin I High Sensitivity 21.3 pg/mL 4.0-51.3 [facility] Comment on above: CUT-OFF POINTS HAVE BEEN [...] AND CLINICAL INFORMATION. 3410.0 pg/mL High <=1800.0 [facility] 21.3 pg/mL 4.0-51.3 [facility] 2.6 g/dL Low 3.4-5.0 [facility] 87 U/L 46-116 [facility] 18 U/L 14-59 [facility] 14 U/L Low 15-37 [facility] 38.4 [facility] 43.0 mg/dL High 7.0-18.0 [facility] 8.6 mg/dL 8.5-10.1 [facility] 101 mmol/L 98-107 [facility] 31.4 mmol/L 21.0-32.0 [facility] 1.12 mg/dL High 0.55-1.02 [facility] 57 Low >=60 [facility] 153 mg/dL High 74-106 [facility] 3.6 mmol/L 3.5-5.1 [facility] 141 mmol/L 136-145 [facility] 0.6 mg/dL 0.2-1.0 [facility] 6.8 g/dL 6.4-8.2 [facility] Platelet mean volume Auto (B ld) [Entitic vol]on 07-15-2024 Platelet mean volume (Bld) [Entitic vol] 11.0 fL 9.5-13.5 [facility] Platelets Auto (Bld) [#/Vol] on 07-15-2024 Platelets (Bld) [#/Vol] 177 10 3/uL 150-450 [facility] RBC Auto (Bld) [#/Vol]on RBC (Bld) [#/Vol] 3.88 10 6/uL Low 4.20-5.40 [facility] Serum or plasma albumin/glob ulin mass ratioon 07-15-2024 Albumin/Globulin [Mass ratio] 0.6 {ratio} [facility] Serum or plasma anion gap de terminationon 07-15-2024 Anion gap [Moles/Vol] 12.2 mmol/L [facility] Basophils Auto (Bld) [#/Vol] on 07-14-2024 Basophils (Bld) [#/Vol] 0.1 10 3/uL 0.0-0.1 [facility] Basophils/100 WBC Auto (Bld) on 07-14-2024 Basophils/100 WBC (Bld) 0.9 % 0.2-2.0 [facility] Eosinophils/100 WBC Auto (Bl d)on 07-14-2024 Eosinophils/100 WBC (Bld) 1.3 % 0.9-7.0 [facility] Erythrocyte distribution wid th Auto (RBC) [Ratio]on 07-14-2024 Erythrocyte distribution width (RBC) [Ratio] 13.5 % 11.0-15.0 [facility] Estimated glomerular filtrat ion rate (GFR) non- Americanon 07-14-2024 GFR/1.73 sq M.predicted among non-blacks MDRD (S/P/Bld) [Vol rate/Area] 30 mL/min/{1.73_m2} Low >=60 [facility] Hematocrit Auto (Bld) [Volum e fraction]on 07-14-2024 Hematocrit (Bld) [Volume fraction] 38.5 % 36.0-48.0 [facility] Hemoglobin [Mass/volume] in Bloodon 07-14-2024 Hemoglobin (Bld) [Mass/Vol] 12.8 g/dL 12.0-16.0 [facility] Laboratory - Chemistry and C hemistry - challengeon 07-14-2024 Calcium [Mass/Vol] 9.0 mg/dL 8.5-10.1 [facility] Chloride [Moles/Vol] 96 mmol/L Low 98-107 [facility] CO2 [Moles/Vol] 35.5 mmol/L High 21.0-32.0 [facility] Creatinine [Mass/Vol] 1.65 mg/dL High 0.55-1.[address] [facility] GFR/1.73 sq M.predicted MDRD (S/P/Bld) [Vol rate/Area] 36 mL/min/{1.73_m2} Low >=60 [facility] Glucose [Mass/Vol] 458 mg/dL High 74-106 [facility] Potassium [Moles/Vol] 4.0 mmol/L 3.5-5.[address] [facility] Sodium [Moles/Vol] 135 mmol/L Low 136-145 [facility] Urea nitrogen [Mass/Vol] 52.0 mg/dL High 7.0-18.0 [facility] Urea nitrogen/Creatinine [Mass ratio] 31.5 mg/mg [facility] Laboratory - Hematology and Cell countson 07-14-2024 Immature granulocytes/100 WBC (Bld) 0.1 % 0.0-0.5 [facility] Leukocytes [#/volume] correc gali for nucleated erythrocytes in Blood by Automated counon 07-14-2024 WBC corrected for nucl RBC Auto (Bld) [#/Vol] 8.2 10 3/uL 4.0-11.0 [facility] Lymphocytes Auto (Bld) [#/Vo l]on 07-14-2024 Lymphocytes (Bld) [#/Vol] 1.1 10 3/uL Low 1.2-3.8 [facility] Lymphocytes/100 WBC Auto (Bl d)on 07-14-2024 Lymphocytes/100 WBC (Bld) 13.7 % Low 20.5-60.0 [facility] MCH Auto (RBC) [Entitic mass ]on 07-14-2024 MCH (RBC) [Entitic mass] 30.0 pg 26.7-34.0 [facility] MCHC Auto (RBC) [Mass/Vol]on 07-14-2024 MCHC (RBC) [Mass/Vol] 33.2 g/dL 29.9-35.[address] [facility] MCV Auto (RBC) [Entitic vol] on 07-14-2024 MCV (RBC) [Entitic vol] 90.2 fL 81.0-99.0 [facility] Monocytes Auto (Bld) [#/Vol] on 07-14-2024 Monocytes (Bld) [#/Vol] 0.5 10 3/uL 0.3-0.8 [facility] Monocytes/100 WBC Auto (Bld) on 07-14-2024 Monocytes/100 WBC (Bld) 6.6 % 1.7-12.0 [facility] Neutrophils Auto (Bld) [#/Vo l]on 07-14-2024 Neutrophils (Bld) [#/Vol] 6.3 10 3/uL 1.4-6.5 [facility] Neutrophils/100 WBC Auto (Bl d)on 07-14-2024 Neutrophils/100 WBC (Bld) 77.4 % High 43.0-75.0 [facility] No Panel Informationon 07-14 Eosinophils # (Auto) 0.1 10 3/uL 0.0-0.[address] [facility] Immature Granulocyte # (Auto) 0.01 10 3/uL 0.00-0.03 [facility] Troponin I High Sensitivity 17.9 pg/mL 4.0-51.3 [facility] Comment on above: CUT-OFF POINTS HAVE BEEN [...] DIAGNOSTIC AND CLINICAL INFORMATION. 17.9 pg/mL 4.0-51.3 [facility] 31.5 [facility] 0.1 10 3/uL 0.0-0.7 [facility] 52.0 mg/dL High 7.0-18.0 [facility] 9.0 mg/dL 8.5-10.1 [facility] 96 mmol/L Low 98-107 [facility] 35.5 mmol/L High 21.0-32.0 [facility] 0.01 10 3/uL 0.00-0.03 [facility] 1.65 mg/dL High 0.55-1.02 [facility] 0.1 % 0.0-0.5 [facility] 36 Low >=60 [facility] 458 mg/dL High 74-106 [facility] 4.0 mmol/L 3.5-5.1 [facility] 135 mmol/L Low 136-145 [facility] Platelet mean volume Auto (B ld) [Entitic vol]on 07-14-2024 Platelet mean volume (Bld) [Entitic vol] 11.0 fL 9.5-13.5 [facility] Platelets Auto (Bld) [#/Vol] on 07-14-2024 Platelets (Bld) [#/Vol] 182 10 3/uL 150-450 [facility] RBC Auto (Bld) [#/Vol]on RBC (Bld) [#/Vol] 4.27 10 6/uL 4.20-5.40 [facility] Serum or plasma anion gap de terminationon 07-14-2024 Anion gap [Moles/Vol] 7.5 mmol/L [facility] 36on 07-01-2024 36 Regarding lab result s from 06/24/2024: MD Brooke Onofre MA Can you please check with her how she is doing on the Bumex. If she has lost weight and responded well then she can reduce it to once daily and take an extra pill if needed for increased swelling and weight gain. LM for patient to return my call. Normal [facility] Estimated glomerular filtrat ion rate (GFR) non- Americanon 06-24-2024 GFR/1.73 sq M.predicted among non-blacks MDRD (S/P/Bld) [Vol rate/Area] 38 mL/min/{1.73_m2} Low >=60 [facility] Laboratory - Chemistry and C hemistry - challengeon 06-24-2024 Calcium [Mass/Vol] 8.4 mg/dL Low 8.5-10.1 [facility] Chloride [Moles/Vol] 100 mmol/L 98-107 [facility] CO2 [Moles/Vol] 31.1 mmol/L 21.0-32.0 [facility] Creatinine [Mass/Vol] 1.34 mg/dL High 0.55-1.[address] [facility] GFR/1.73 sq M.predicted MDRD (S/P/Bld) [Vol rate/Area] 46 mL/min/{1.73_m2} Low >=60 [facility] Glucose [Mass/Vol] 222 mg/dL High 74-106 [facility] Potassium [Moles/Vol] 3.6 mmol/L 3.5-5.[address] [facility] Sodium [Moles/Vol] 138 mmol/L 136-145 [facility] Urea nitrogen [Mass/Vol] 32.0 mg/dL High 7.0-18.0 [facility] Urea nitrogen/Creatinine [Mass ratio] 23.9 mg/mg [facility] No Panel Informationon 06-24 23.9 [facility] 32.0 mg/dL High 7.0-18.0 [facility] 8.4 mg/dL Low 8.5-10.1 [facility] 100 mmol/L 98-107 [facility] 31.1 mmol/L 21.0-32.0 [facility] 1.34 mg/dL High 0.55-1.02 [facility] 46 Low >=60 [facility] 222 mg/dL High 74-106 [facility] 3.6 mmol/L 3.5-5.1 [facility] 138 mmol/L 136-145 [facility] Serum or plasma anion gap de terminationon 06-24-2024 Anion gap [Moles/Vol] 10.5 mmol/L [facility] Office Visiton 06-18-2024 Follow-up visit [id number] Joe Call 1945 F Date Provider Department Center 06/18/2024 [facility] Family History Problem Relation Age of Onset Coronary artery disease Other Diabetes Other Polycystic kidney disease Other Family Status - Relation Status Age at Other Level of Service:13365 [place] OFFICE/OUTPATIENT ESTABLISHED MOD MDM [address] [facility] Basophils Auto (Bld) [#/Vol] on 06-10-2024 Basophils (Bld) [#/Vol] 0.1 10 3/uL 0.0-0.1 [facility] Basophils/100 WBC Auto (Bld) on 06-10-2024 Basophils/100 WBC (Bld) 1.0 % 0.2-2.0 [facility] Eosinophils/100 WBC Auto (Bl d)on 06-10-2024 Eosinophils/100 WBC (Bld) 1.3 % 0.9-7.0 [facility] Erythrocyte distribution wid th Auto (RBC) [Ratio]on 06-10-2024 Erythrocyte distribution width (RBC) [Ratio] 14.6 % 11.0-15.0 [facility] Estimated glomerular filtrat ion rate (GFR) non- Americanon 06-10-2024 GFR/1.73 sq M.predicted among non-blacks MDRD (S/P/Bld) [Vol rate/Area] 54 mL/min/{1.73_m2} Low >=60 [facility] Globulin Calc (S) [Mass/Vol] on 06-10-2024 Globulin (S) [Mass/Vol] 4.5 g/dL [facility] Hematocrit Auto (Bld) [Volum e fraction]on 06-10-2024 Hematocrit (Bld) [Volume fraction] 36.8 % 36.0-48.0 [facility] Hemoglobin [Mass/volume] in Bloodon 06-10-2024 Hemoglobin (Bld) [Mass/Vol] 12.1 g/dL 12.0-16.0 [facility] Laboratory - Chemistry and C hemistry - challengeon 06-10-2024 Albumin [Mass/Vol] 2.4 g/dL Low 3.4-5.0 [facility] ALP [Catalytic activity/Vol] 94 U/L 46-116 [facility] ALT [Catalytic activity/Vol] 13 U/L Low 14-59 [facility] AST [Catalytic activity/Vol] 13 U/L Low 15-37 [facility] Bilirubin [Mass/Vol] 0.9 mg/dL 0.2-1.0 [facility] Calcium [Mass/Vol] 8.9 mg/dL 8.5-10.1 [facility] Chloride [Moles/Vol] 101 mmol/L 98-107 [facility] CO2 [Moles/Vol] 29.4 mmol/L 21.0-32.0 [facility] Creatinine [Mass/Vol] 1.00 mg/dL 0.55-1.[address] [facility] GFR/1.73 sq M.predicted MDRD (S/P/Bld) [Vol rate/Area] mL/min/{1.73_m2} >=60 [facility] Glucose [Mass/Vol] 167 mg/dL High 74-106 [facility] Potassium [Moles/Vol] 3.4 mmol/L Low 3.5-5.[address] [facility] Protein [Mass/Vol] 6.9 g/dL 6.4-8.2 [facility] Sodium [Moles/Vol] 136 mmol/L 136-145 [facility] Urea nitrogen [Mass/Vol] 24.0 mg/dL High 7.0-18.0 [facility] Urea nitrogen/Creatinine [Mass ratio] 24.0 mg/mg [facility] Laboratory - Hematology and Cell countson 06-10-2024 Immature granulocytes/100 WBC (Bld) 0.3 % 0.0-0.5 [facility] Leukocytes [#/volume] correc gali for nucleated erythrocytes in Blood by Automated counon 06-10-2024 WBC corrected for nucl RBC Auto (Bld) [#/Vol] 7.9 10 3/uL 4.0-11.0 [facility] Lymphocytes Auto (Bld) [#/Vo l]on 06-10-2024 Lymphocytes (Bld) [#/Vol] 1.3 10 3/uL 1.2-3.8 [facility] Lymphocytes/100 WBC Auto (Bl d)on 06-10-2024 Lymphocytes/100 WBC (Bld) 16.8 % Low 20.5-60.0 [facility] MCH Auto (RBC) [Entitic mass ]on 06-10-2024 MCH (RBC) [Entitic mass] 29.8 pg 26.7-34.0 [facility] MCHC Auto (RBC) [Mass/Vol]on 06-10-2024 MCHC (RBC) [Mass/Vol] 32.9 g/dL 29.9-35.[address] [facility] MCV Auto (RBC) [Entitic vol] on 06-10-2024 MCV (RBC) [Entitic vol] 90.6 fL 81.0-99.0 [facility] Monocytes Auto (Bld) [#/Vol] on 06-10-2024 Monocytes (Bld) [#/Vol] 0.8 10 3/uL 0.3-0.8 [facility] Monocytes/100 WBC Auto (Bld) on 06-10-2024 Monocytes/100 WBC (Bld) 9.8 % 1.7-12.0 [facility] Neutrophils Auto (Bld) [#/Vo l]on 06-10-2024 Neutrophils (Bld) [#/Vol] 5.6 10 3/uL 1.4-6.5 [facility] Neutrophils/100 WBC Auto (Bl d)on 06-10-2024 Neutrophils/100 WBC (Bld) 70.8 % 43.0-75.0 [facility] No Panel Informationon 06-10 Eosinophils # (Auto) 0.1 10 3/uL 0.0-0.[address] [facility] Immature Granulocyte # (Auto) 0.02 10 3/uL 0.00-0.03 [facility] 2.4 g/dL Low 3.4-5.0 [facility] 0.1 10 3/uL 0.0-0.7 [facility] 94 U/L 46-116 [facility] 13 U/L Low 15-37 [facility] 24.0 [facility] 0.02 10 3/uL 0.00-0.03 [facility] 24.0 mg/dL High 7.0-18.0 [facility] 0.3 % 0.0-0.5 [facility] 8.9 mg/dL 8.5-10.1 [facility] 101 mmol/L 98-107 [facility] 29.4 mmol/L 21.0-32.0 [facility] 1.00 mg/dL 0.55-1.02 [facility] >60 >=60 [facility] 167 mg/dL High 74-106 [facility] 3.4 mmol/L Low 3.5-5.1 [facility] 136 mmol/L 136-145 [facility] 0.9 mg/dL 0.2-1.0 [facility] 6.9 g/dL 6.4-8.2 [facility] Platelet mean volume Auto (B ld) [Entitic vol]on 06-10-2024 Platelet mean volume (Bld) [Entitic vol] 11.2 fL 9.5-13.5 [facility] Platelets Auto (Bld) [#/Vol] on 06-10-2024 Platelets (Bld) [#/Vol] 189 10 3/uL 150-450 [facility] [facility] RBC Auto (Bld) [#/Vol]on RBC (Bld) [#/Vol] 4.06 10 6/uL Low 4.20-5.40 [facility] Serum or plasma albumin/glob ulin mass ratioon 06-10-2024 Albumin/Globulin [Mass ratio] 0.5 {ratio} [facility] Serum or plasma anion gap de terminationon 06-10-2024 Anion gap [Moles/Vol] 9.0 mmol/L [facility] Basophils Auto (Bld) [#/Vol] on 06-09-2024 Basophils (Bld) [#/Vol] 0.1 10 3/uL 0.0-0.1 [facility] Basophils/100 WBC Auto (Bld) on 06-09-2024 Basophils/100 WBC (Bld) 1.0 % 0.2-2.0 [facility] Eosinophils/100 WBC Auto (Bl d)on 06-09-2024 Eosinophils/100 WBC (Bld) 1.5 % 0.9-7.0 [facility] Erythrocyte distribution wid th Auto (RBC) [Ratio]on 06-09-2024 Erythrocyte distribution width (RBC) [Ratio] 14.8 % 11.0-15.0 [facility] Estimated glomerular filtrat ion rate (GFR) non- Americanon 06-09-2024 GFR/1.73 sq M.predicted among non-blacks MDRD (S/P/Bld) [Vol rate/Area] mL/min/{1.73_m2} >=60 [facility] Fibrin D-dimer [Presence] in Platelet poor plasma by Latex agglutinationon 06-09-2024 Fibrin D-dimer LA Ql (PPP) 0.39 mg/L FEU <=0.59 [facility] Comment on above: Increases in D-Dimer concentration [...] on 06-09-2024 Globulin (S) [Mass/Vol] 4.8 g/dL [facility] Hematocrit Auto (Bld) [Volum e fraction]on 06-09-2024 Hematocrit (Bld) [Volume fraction] 37.7 % 36.0-48.0 [facility] Hemoglobin [Mass/volume] in Bloodon 06-09-2024 Hemoglobin (Bld) [Mass/Vol] 12.5 g/dL 12.0-16.0 [facility] Laboratory - Chemistry and C hemistry - challengeon 06-09-2024 Albumin [Mass/Vol] 2.5 g/dL Low 3.4-5.0 [facility] ALP [Catalytic activity/Vol] 86 U/L 46-116 [facility] ALT [Catalytic activity/Vol] 18 U/L 14-59 [facility] AST [Catalytic activity/Vol] 34 U/L 15-37 [facility] Bilirubin [Mass/Vol] 0.8 mg/dL 0.2-1.0 [facility] Calcium [Mass/Vol] 8.6 mg/dL 8.5-10.1 [facility] Chloride [Moles/Vol] 103 mmol/L 98-107 [facility] CO2 [Moles/Vol] 27.1 mmol/L 21.0-32.0 [facility] Creatinine [Mass/Vol] 0.88 mg/dL 0.55-1.[address] [facility] GFR/1.73 sq M.predicted MDRD (S/P/Bld) [Vol rate/Area] mL/min/{1.73_m2} >=60 [facility] Glucose [Mass/Vol] 142 mg/dL High 74-106 [facility] Lipase [Catalytic activity/Vol] 45.0 U/L 16.0-77.0 [facility] Natriuretic peptide B (Bld) [Mass/Vol] 3488.0 pg/mL High <=1800.0 [facility] Comment on above: RESULTS CALLED TO MAIDA MCGOWAN RN @BY Alla Kevin [phone] Potassium [Moles/Vol] 5.0 mmol/L 3.5-5.[address] [facility] Protein [Mass/Vol] 7.3 g/dL 6.4-8.2 [facility] Sodium [Moles/Vol] 135 mmol/L Low 136-145 [facility] Urea nitrogen [Mass/Vol] 28.0 mg/dL High 7.0-18.0 [facility] Urea nitrogen/Creatinine [Mass ratio] 31.8 mg/mg [facility] Laboratory - Hematology and Cell countson 06-09-2024 Immature granulocytes/100 WBC (Bld) 0.3 % 0.0-0.5 [facility] Laboratory - Microbiology an d Antimicrobial susceptibilityon 06-09-2024 SARS-CoV-2 (COVID-19) RNA FERN+probe Ql (Unsp spec) Negative NEGATIVE [facility] Comment on above: This test has not [...] Auto (Bld) [#/Vol] 8.9 10 3/uL 4.0-11.0 [facility] Lymphocytes Auto (Bld) [#/Vo l]on 06-09-2024 Lymphocytes (Bld) [#/Vol] 1.3 10 3/uL 1.2-3.8 [facility] Lymphocytes/100 WBC Auto (Bl d)on 06-09-2024 Lymphocytes/100 WBC (Bld) 15.1 % Low 20.5-60.0 [facility] MCH Auto (RBC) [Entitic mass ]on 06-09-2024 MCH (RBC) [Entitic mass] 30.3 pg 26.7-34.0 [facility] MCHC Auto (RBC) [Mass/Vol]on 06-09-2024 MCHC (RBC) [Mass/Vol] 33.2 g/dL 29.9-35.[address] [facility] MCV Auto (RBC) [Entitic vol] on 06-09-2024 MCV (RBC) [Entitic vol] 91.5 fL 81.0-99.0 [facility] Monocytes Auto (Bld) [#/Vol] on 06-09-2024 Monocytes (Bld) [#/Vol] 0.7 10 3/uL 0.3-0.8 [facility] Monocytes/100 WBC Auto (Bld) on 06-09-2024 Monocytes/100 WBC (Bld) 7.9 % 1.7-12.0 [facility] Neutrophils Auto (Bld) [#/Vo l]on 06-09-2024 Neutrophils (Bld) [#/Vol] 6.6 10 3/uL High 1.4-6.5 [facility] Neutrophils/100 WBC Auto (Bl d)on 06-09-2024 Neutrophils/100 WBC (Bld) 74.2 % 43.0-75.0 [facility] No Panel Informationon 06-09 Negative NEGATIVE [facility] Eosinophils # (Auto) 0.1 10 3/uL 0.0-0.7 [facility] Immature Granulocyte # (Auto) 0.03 10 3/uL 0.00-0.03 [facility] Troponin I High Sensitivity 17.0 pg/mL 4.0-51.3 [facility] Comment on above: CUT-OFF POINTS HAVE BEEN [...] AND CLINICAL INFORMATION. 3488.0 pg/mL High <=1800.0 [facility] 45.0 U/L 16.0-77.0 [facility] 17.0 pg/mL 4.0-51.3 [facility] 2.5 g/dL Low 3.4-5.0 [facility] 0.1 10 3/uL 0.0-0.7 [facility] 86 U/L 46-116 [facility] 18 U/L 14-59 [facility] 34 U/L 15-37 [facility] 31.8 [facility] 0.03 10 3/uL 0.00-0.03 [facility] 28.0 mg/dL High 7.0-18.0 [facility] 0.3 % 0.0-0.5 [facility] 8.6 mg/dL 8.5-10.1 [facility] 103 mmol/L 98-107 [facility] 27.1 mmol/L 21.0-32.0 [facility] 0.88 mg/dL 0.55-1.02 [facility] >60 >=60 [facility] 142 mg/dL High 74-106 [facility] 5.0 mmol/L 3.5-5.1 [facility] 135 mmol/L Low 136-145 [facility] 0.8 mg/dL 0.2-1.0 [facility] 7.3 g/dL 6.4-8.2 [facility] Platelet mean volume Auto (B ld) [Entitic vol]on 06-09-2024 Platelet mean volume (Bld) [Entitic vol] 12.4 fL 9.5-13.5 [facility] Platelets Auto (Bld) [#/Vol] on 06-09-2024 Platelets (Bld) [#/Vol] 205 10 3/uL 150-450 [facility] RBC Auto (Bld) [#/Vol]on RBC (Bld) [#/Vol] 4.12 10 6/uL Low 4.20-5.40 [facility] Serum or plasma albumin/glob ulin mass ratioon 06-09-2024 Albumin/Globulin [Mass ratio] 0.5 {ratio} [facility] Serum or plasma anion gap de terminationon 06-09-2024 Anion gap [Moles/Vol] 9.9 mmol/L [facility] Basophils Auto (Bld) [#/Vol] on 06-01-2024 Basophils (Bld) [#/Vol] 0.1 10 3/uL 0.0-0.1 [facility] Basophils/100 WBC Auto (Bld) on 06-01-2024 Basophils/100 WBC (Bld) 0.9 % 0.2-2.0 [facility] Eosinophils/100 WBC Auto (Bl d)on 06-01-2024 Eosinophils/100 WBC (Bld) 1.2 % 0.9-7.0 [facility] Erythrocyte distribution wid th Auto (RBC) [Ratio]on 06-01-2024 Erythrocyte distribution width (RBC) [Ratio] 14.1 % 11.0-15.0 [facility] Estimated glomerular filtrat ion rate (GFR) non- Americanon 06-01-2024 GFR/1.73 sq M.predicted among non-blacks MDRD (S/P/Bld) [Vol rate/Area] 47 mL/min/{1.73_m2} Low >=60 [facility] Globulin Calc (S) [Mass/Vol] on 06-01-2024 Globulin (S) [Mass/Vol] 4.4 g/dL [facility] Hematocrit Auto (Bld) [Volum e fraction]on 06-01-2024 Hematocrit (Bld) [Volume fraction] 37.6 % 36.0-48.0 [facility] Hemoglobin [Mass/volume] in Bloodon 06-01-2024 Hemoglobin (Bld) [Mass/Vol] 12.5 g/dL 12.0-16.0 [facility] Laboratory - Chemistry and C hemistry - challengeon 06-01-2024 Albumin [Mass/Vol] 2.7 g/dL Low 3.4-5.0 [facility] ALP [Catalytic activity/Vol] 87 U/L 46-116 [facility] ALT [Catalytic activity/Vol] 18 U/L 14-59 [facility] AST [Catalytic activity/Vol] 16 U/L 15-37 [facility] Bilirubin [Mass/Vol] 0.5 mg/dL 0.2-1.0 [facility] Calcium [Mass/Vol] 8.7 mg/dL 8.5-10.1 [facility] Chloride [Moles/Vol] 101 mmol/L 98-107 [facility] CO2 [Moles/Vol] 28.9 mmol/L 21.0-32.0 [facility] Creatinine [Mass/Vol] 1.12 mg/dL High 0.55-1.[address] [facility] GFR/1.73 sq M.predicted MDRD (S/P/Bld) [Vol rate/Area] 57 mL/min/{1.73_m2} Low >=60 [facility] Glucose [Mass/Vol] 232 mg/dL High 74-106 [facility] Potassium [Moles/Vol] 4.1 mmol/L 3.5-5.[address] [facility] Protein [Mass/Vol] 7.1 g/dL 6.4-8.2 [facility] Sodium [Moles/Vol] 137 mmol/L 136-145 [facility] Urea nitrogen [Mass/Vol] 23.0 mg/dL High 7.0-18.0 [facility] Urea nitrogen/Creatinine [Mass ratio] 20.5 mg/mg [facility] Laboratory - Hematology and Cell countson 06-01-2024 Immature granulocytes/100 WBC (Bld) 0.2 % 0.0-0.5 [facility] Leukocytes [#/volume] correc gali for nucleated erythrocytes in Blood by Automated counon 06-01-2024 WBC corrected for nucl RBC Auto (Bld) [#/Vol] 9.0 10 3/uL 4.0-11.0 [facility] Lymphocytes Auto (Bld) [#/Vo l]on 06-01-2024 Lymphocytes (Bld) [#/Vol] 1.4 10 3/uL 1.2-3.8 [facility] Lymphocytes/100 WBC Auto (Bl d)on 06-01-2024 Lymphocytes/100 WBC (Bld) 15.9 % Low 20.5-60.0 [facility] MCH Auto (RBC) [Entitic mass ]on 06-01-2024 MCH (RBC) [Entitic mass] 29.5 pg 26.7-34.0 [facility] MCHC Auto (RBC) [Mass/Vol]on 06-01-2024 MCHC (RBC) [Mass/Vol] 33.2 g/dL 29.9-35.[address] [facility] MCV Auto (RBC) [Entitic vol] on 06-01-2024 MCV (RBC) [Entitic vol] 88.7 fL 81.0-99.0 [facility] Monocytes Auto (Bld) [#/Vol] on 06-01-2024 Monocytes (Bld) [#/Vol] 0.8 10 3/uL 0.3-0.8 [facility] Monocytes/100 WBC Auto (Bld) on 06-01-2024 Monocytes/100 WBC (Bld) 8.5 % 1.7-12.0 [facility] Neutrophils Auto (Bld) [#/Vo l]on 06-01-2024 Neutrophils (Bld) [#/Vol] 6.6 10 3/uL High 1.4-6.5 [facility] Neutrophils/100 WBC Auto (Bl d)on 06-01-2024 Neutrophils/100 WBC (Bld) 73.3 % 43.0-75.0 [facility] No Panel Informationon 06-01 Eosinophils # (Auto) 0.1 10 3/uL 0.0-0.[address] [facility] Immature Granulocyte # (Auto) 0.02 10 3/uL 0.00-0.03 [facility] 2.7 g/dL Low 3.4-5.0 [facility] 0.1 10 3/uL 0.0-0.7 [facility] 87 U/L 46-116 [facility] 18 U/L 14-59 [facility] 16 U/L 15-37 [facility] 20.5 [facility] 0.02 10 3/uL 0.00-0.03 [facility] 23.0 mg/dL High 7.0-18.0 [facility] 0.2 % 0.0-0.5 [facility] 8.7 mg/dL 8.5-10.1 [facility] 101 mmol/L 98-107 [facility] 28.9 mmol/L 21.0-32.0 [facility] 1.12 mg/dL High 0.55-1.02 [facility] 57 Low >=60 [facility] 232 mg/dL High 74-106 [facility] 4.1 mmol/L 3.5-5.1 [facility] 137 mmol/L 136-145 [facility] 0.5 mg/dL 0.2-1.0 [facility] 7.1 g/dL 6.4-8.2 [facility] Platelet mean volume Auto (B ld) [Entitic vol]on 06-01-2024 Platelet mean volume (Bld) [Entitic vol] 11.1 fL 9.5-13.5 [facility] Platelets Auto (Bld) [#/Vol] on 06-01-2024 Platelets (Bld) [#/Vol] 162 10 3/uL 150-450 [facility] RBC Auto (Bld) [#/Vol]on RBC (Bld) [#/Vol] 4.24 10 6/uL 4.20-5.40 [facility] Serum or plasma albumin/glob ulin mass ratioon 06-01-2024 Albumin/Globulin [Mass ratio] 0.6 {ratio} [facility] Serum or plasma anion gap de terminationon 06-01-2024 Anion gap [Moles/Vol] 11.2 [facility] Basophils Auto (Bld) [#/Vol] on 05-26-2024 Basophils (Bld) [#/Vol] 0.1 10 3/uL 0.0-0.1 [facility] Basophils/100 WBC Auto (Bld) on 05-26-2024 Basophils/100 WBC (Bld) 1.1 % 0.2-2.0 [facility] Eosinophils/100 WBC Auto (Bl d)on 05-26-2024 Eosinophils/100 WBC (Bld) 2.1 % 0.9-7.0 [facility] Erythrocyte distribution wid th Auto (RBC) [Ratio]on 05-26-2024 Erythrocyte distribution width (RBC) [Ratio] 14.0 % 11.0-15.0 [facility] Estimated glomerular filtrat ion rate (GFR) non- Americanon 05-26-2024 GFR/1.73 sq M.predicted among non-blacks MDRD (S/P/Bld) [Vol rate/Area] 40 mL/min/{1.73_m2} Low >=60 [facility] Globulin Calc (S) [Mass/Vol] on 05-26-2024 Globulin (S) [Mass/Vol] 4.4 g/dL [facility] Hematocrit Auto (Bld) [Volum e fraction]on 05-26-2024 Hematocrit (Bld) [Volume fraction] 35.9 % Low 36.0-48.0 [facility] Hemoglobin [Mass/volume] in Bloodon 05-26-2024 Hemoglobin (Bld) [Mass/Vol] 12.0 g/dL 12.0-16.0 [facility] Laboratory - Chemistry and C hemistry - challengeon 05-26-2024 Albumin [Mass/Vol] 2.7 g/dL Low 3.4-5.0 [facility] ALP [Catalytic activity/Vol] 88 U/L 46-116 [facility] ALT [Catalytic activity/Vol] 20 U/L 14-59 [facility] AST [Catalytic activity/Vol] 12 U/L Low 15-37 [facility] Bilirubin [Mass/Vol] 0.5 mg/dL 0.2-1.0 [facility] Calcium [Mass/Vol] 8.9 mg/dL 8.5-10.1 [facility] Chloride [Moles/Vol] 104 mmol/L 98-107 [facility] CO2 [Moles/Vol] 26.7 mmol/L 21.0-32.0 [facility] Creatinine [Mass/Vol] 1.29 mg/dL High 0.55-1.[address] [facility] Free T4 [Mass/Vol] 1.19 ng/dL 0.76-1.46 [facility] GFR/1.73 sq M.predicted MDRD (S/P/Bld) [Vol rate/Area] 49 mL/min/{1.73_m2} Low >=60 [facility] Glucose [Mass/Vol] 233 mg/dL High 74-106 [facility] Natriuretic peptide B (Bld) [Mass/Vol] 2687.0 pg/mL High <=1800.0 [facility] Comment on above: RESULTS CALLED TO DR Miranda ALVAREZ IN ER BY Mira Edwards [phone] Potassium [Moles/Vol] 4.0 mmol/L 3.5-5.[address] [facility] Protein [Mass/Vol] 7.1 g/dL 6.4-8.2 [facility] Sodium [Moles/Vol] 140 mmol/L 136-145 [facility] TSH Qn 4.487 m[IU]/L High 0.358-3.740 [facility] Urea nitrogen [Mass/Vol] 33.0 mg/dL High 7.0-18.0 [facility] Urea nitrogen/Creatinine [Mass ratio] 25.6 mg/mg [facility] Laboratory - Hematology and Cell countson 05-26-2024 Immature granulocytes/100 WBC (Bld) 0.1 % 0.0-0.5 [facility] Laboratory - Microbiology an d Antimicrobial susceptibilityon 05-26-2024 S. pyogenes Ag Ql (Unsp spec) Negative [facility] SARS-CoV-2 (COVID-19) RNA FERN+probe Ql (Unsp spec) Not detected NOT DETECTE [facility] Comment on above: THIS TEST IS NOT PEREZ ROVDED BY THE FDA. It has beenauthorized for use under an Emergency Use Authorization. SARS-CoV-2 (COVID-19) RNA FERN+probe Ql (Unsp spec) See comment NOT DETECTE [facility] Comment on above: COVID AG PERFORMED-- - 06/06/24 1120 ---SARS-CoV-2 FERN previously reported as: NOT DETECTEDTHIS TEST IS NOT APPROVDED BY THE FDA. It has beenauthorized for use under an Emergency Use Authorization. SARS-CoV-2 (COVID-19) RNA FERN+probe Ql (Unsp spec) Negative NEGATIVE [facility] Comment on above: This test has not [...] Auto (Bld) [#/Vol] 7.3 10 3/uL 4.0-11.0 [facility] Lymphocytes Auto (Bld) [#/Vo l]on 05-26-2024 Lymphocytes (Bld) [#/Vol] 1.3 10 3/uL 1.2-3.8 [facility] Lymphocytes/100 WBC Auto (Bl d)on 05-26-2024 Lymphocytes/100 WBC (Bld) 18.4 % Low 20.5-60.0 [facility] MCH Auto (RBC) [Entitic mass ]on 05-26-2024 MCH (RBC) [Entitic mass] 30.4 pg 26.7-34.0 [facility] MCHC Auto (RBC) [Mass/Vol]on 05-26-2024 MCHC (RBC) [Mass/Vol] 33.4 g/dL 29.9-35.[address] [facility] MCV Auto (RBC) [Entitic vol] on 05-26-2024 MCV (RBC) [Entitic vol] 90.9 fL 81.0-99.0 [facility] Monocytes Auto (Bld) [#/Vol] on 05-26-2024 Monocytes (Bld) [#/Vol] 0.7 10 3/uL 0.3-0.8 [facility] Monocytes/100 WBC Auto (Bld) on 05-26-2024 Monocytes/100 WBC (Bld) 9.5 % 1.7-12.0 [facility] Neutrophils Auto (Bld) [#/Vo l]on 05-26-2024 Neutrophils (Bld) [#/Vol] 5.0 10 3/uL 1.4-6.5 [facility] Neutrophils/100 WBC Auto (Bl d)on 05-26-2024 Neutrophils/100 WBC (Bld) 68.8 % 43.0-75.0 [facility] No Panel Informationon 05-26 See comment NOT DETECTE [facility] Negative [facility] Eosinophils # (Auto) 0.2 10 3/uL 0.0-0.[address] [facility] Immature Granulocyte # (Auto) 0.01 10 3/uL 0.00-0.03 [facility] Monoscreen Negative NEGATIVE [facility] Troponin I High Sensitivity 14.9 pg/mL 4.0-51.3 [facility] Comment on above: CUT-OFF POINTS HAVE BEEN [...] DIAGNOSTIC AND CLINICAL INFORMATION. 1.19 ng/dL 0.76-1.46 [facility] 2687.0 pg/mL High <=1800.0 [facility] 14.9 pg/mL 4.0-51.3 [facility] 4.487 u[iU]/mL High 0.358-3.740 [facility] Negative NEGATIVE [facility] 2.7 g/dL Low 3.4-5.0 [facility] 0.2 10 3/uL 0.0-0.7 [facility] 88 U/L 46-116 [facility] 20 U/L 14-59 [facility] 12 U/L Low 15-37 [facility] 25.6 [facility] 0.01 10 3/uL 0.00-0.03 [facility] 33.0 mg/dL High 7.0-18.0 [facility] 0.1 % 0.0-0.5 [facility] 8.9 mg/dL 8.5-10.1 [facility] 104 mmol/L 98-107 [facility] 26.7 mmol/L 21.0-32.0 [facility] 1.29 mg/dL High 0.55-1.02 [facility] 49 Low >=60 [facility] 233 mg/dL High 74-106 [facility] 4.0 mmol/L 3.5-5.1 [facility] 140 mmol/L 136-145 [facility] 0.5 mg/dL 0.2-1.0 [facility] 7.1 g/dL 6.4-8.2 [facility] Platelet mean volume Auto (B ld) [Entitic vol]on 05-26-2024 Platelet mean volume (Bld) [Entitic vol] 10.6 fL 9.5-13.5 [facility] Platelets Auto (Bld) [#/Vol] on 05-26-2024 Platelets (Bld) [#/Vol] 215 10 3/uL 150-450 [facility] RBC Auto (Bld) [#/Vol]on RBC (Bld) [#/Vol] 3.95 10 6/uL Low 4.20-5.40 [facility] Serum or plasma albumin/glob ulin mass ratioon 05-26-2024 Albumin/Globulin [Mass ratio] 0.6 {ratio} [facility] Serum or plasma anion gap de terminationon 05-26-2024 Anion gap [Moles/Vol] 13.3 mmol/L [facility] ECG 12 lead ECGon 05-22-2024 ECG 12 lead ECG [facility] [place] [address] Electrocardiograph Report Signed Patient: Joe Call MR#: [id number] 0 : 1945 Acct:[id number] Age/Sex: 78 / F ADM Date: 05/22/24 Loc: ER Room: Type: [facility] ER Attending Dr: Ordering Provider: [...] Sinus bradycardia Confirmed by Daniele Jane DO ([id number]) on 05/22/2024 4:08:55 PM Referred By: Electronically Signed By: Daniele Jane DO Transcribed By: MUS Signed By Daniele Jane DO 160 Normal [facility] 37on 05-20-2024 37 Have blood drawn/ la bs to check kidney function and electrolytes this [...] pillows than normal or in recliner. Normal [facility] Estimated glomerular filtrat ion rate (GFR) non- Americanon 05-20-2024 GFR/1.73 sq M.predicted among non-blacks MDRD (S/P/Bld) [Vol rate/Area] 39 mL/min/{1.73_m2} Low >=60 [facility] Laboratory - Chemistry and C hemistry - challengeon 05-20-2024 Calcium [Mass/Vol] 8.8 mg/dL 8.5-10.1 [facility] Chloride [Moles/Vol] 103 mmol/L 98-107 [facility] CO2 [Moles/Vol] 24.3 mmol/L 21.0-32.0 [facility] Creatinine [Mass/Vol] 1.32 mg/dL High 0.55-1.[address] [facility] GFR/1.73 sq M.predicted MDRD (S/P/Bld) [Vol rate/Area] 47 mL/min/{1.73_m2} Low >=60 [facility] Glucose [Mass/Vol] 243 mg/dL High 74-106 [facility] Potassium [Moles/Vol] 5.0 mmol/L 3.5-5.[address] [facility] Sodium [Moles/Vol] 138 mmol/L 136-145 [facility] Urea nitrogen [Mass/Vol] 35.0 mg/dL High 7.0-18.0 [facility] Urea nitrogen/Creatinine [Mass ratio] 26.5 mg/mg [facility] No Panel Informationon 05-20 26.5 [facility] 35.0 mg/dL High 7.0-18.0 [facility] 8.8 mg/dL 8.5-10.1 [facility] 103 mmol/L 98-107 [facility] 24.3 mmol/L 21.0-32.0 [facility] 1.32 mg/dL High 0.55-1.02 [facility] 47 Low >=60 [facility] 243 mg/dL High 74-106 [facility] 5.0 mmol/L 3.5-5.1 [facility] 138 mmol/L 136-145 [facility] Office Visiton 05-20-2024 Follow-up visit [id number] BassemJoe G 1945 F Date Provider Department Center 05/20/2024 MICHELA CHAMBERLAIN [facility] Family History Problem Relation Age of Onset Coronary artery disease Other Diabetes Other Polycystic kidney disease Other Family Status - Relation Status Age at Other Level of Service:[address] [place] OFFICE/OUTPATIENT ESTABLISHED MOD MDM [address] [facility] Serum or plasma anion gap de terminationon 05-20-2024 Anion gap [Moles/Vol] 15.7 [facility] Basophils Auto (Bld) [#/Vol] on 05-06-2024 Basophils (Bld) [#/Vol] 0.1 10 3/uL 0.0-0.1 [facility] Basophils/100 WBC Auto (Bld) on 05-06-2024 Basophils/100 WBC (Bld) 0.9 % 0.2-2.0 [facility] Eosinophils/100 WBC Auto (Bl d)on 05-06-2024 Eosinophils/100 WBC (Bld) 2.7 % 0.9-7.0 [facility] Erythrocyte distribution wid th Auto (RBC) [Ratio]on 05-06-2024 Erythrocyte distribution width (RBC) [Ratio] 13.5 % 11.0-15.0 [facility] Estimated glomerular filtrat ion rate (GFR) non- Americanon 05-06-2024 GFR/1.73 sq M.predicted among non-blacks MDRD (S/P/Bld) [Vol rate/Area] 32 mL/min/{1.73_m2} Low >=60 [facility] Globulin Calc (S) [Mass/Vol] on 05-06-2024 Globulin (S) [Mass/Vol] 4.3 g/dL [facility] Hematocrit Auto (Bld) [Volum e fraction]on 05-06-2024 Hematocrit (Bld) [Volume fraction] 34.6 % Low 36.0-48.0 [facility] Hemoglobin [Mass/volume] in Bloodon 05-06-2024 Hemoglobin (Bld) [Mass/Vol] 11.1 g/dL Low 12.0-16.0 [facility] Laboratory - Chemistry and C hemistry - challengeon 05-06-2024 Albumin [Mass/Vol] 2.5 g/dL Low 3.4-5.0 [facility] ALP [Catalytic activity/Vol] 75 U/L 46-116 [facility] ALT [Catalytic activity/Vol] 16 U/L 14-59 [facility] AST [Catalytic activity/Vol] 11 U/L Low 15-37 [facility] Bilirubin [Mass/Vol] 0.4 mg/dL 0.2-1.0 [facility] Calcium [Mass/Vol] 8.4 mg/dL Low 8.5-10.1 [facility] Chloride [Moles/Vol] 107 mmol/L 98-107 [facility] CO2 [Moles/Vol] 25.7 mmol/L 21.0-32.0 [facility] Creatinine [Mass/Vol] 1.58 mg/dL High 0.55-1.[address] [facility] GFR/1.73 sq M.predicted MDRD (S/P/Bld) [Vol rate/Area] 38 mL/min/{1.73_m2} Low >=60 [facility] Glucose [Mass/Vol] 146 mg/dL High 74-106 [facility] Magnesium [Mass/Vol] 1.6 mg/dL Low 1.8-2.4 [facility] Natriuretic peptide B (Bld) [Mass/Vol] 2762.0 pg/mL High <=1800.0 [facility] Comment on above: RESULTS CALLED TO CLARITZA SELLERS RN @BY Alla Venegas at 0557 Potassium [Moles/Vol] 4.1 mmol/L 3.5-5.[address] [facility] Protein [Mass/Vol] 6.8 g/dL 6.4-8.2 [facility] Sodium [Moles/Vol] 141 mmol/L 136-145 [facility] Urea nitrogen [Mass/Vol] 49.0 mg/dL High 7.0-18.0 [facility] Urea nitrogen/Creatinine [Mass ratio] 31.0 mg/mg [facility] Laboratory - Hematology and Cell countson 05-06-2024 Immature granulocytes/100 WBC (Bld) 0.1 % 0.0-0.5 [facility] Leukocytes [#/volume] correc gali for nucleated erythrocytes in Blood by Automated counon 05-06-2024 WBC corrected for nucl RBC Auto (Bld) [#/Vol] 6.7 10 3/uL 4.0-11.0 [facility] Lymphocytes Auto (Bld) [#/Vo l]on 05-06-2024 Lymphocytes (Bld) [#/Vol] 1.5 10 3/uL 1.2-3.8 [facility] Lymphocytes/100 WBC Auto (Bl d)on 05-06-2024 Lymphocytes/100 WBC (Bld) 21.8 % 20.5-60.0 [facility] MCH Auto (RBC) [Entitic mass ]on 05-06-2024 MCH (RBC) [Entitic mass] 29.0 pg 26.7-34.0 [facility] MCHC Auto (RBC) [Mass/Vol]on 05-06-2024 MCHC (RBC) [Mass/Vol] 32.1 g/dL 29.9-35.[address] [facility] MCV Auto (RBC) [Entitic vol] on 05-06-2024 MCV (RBC) [Entitic vol] 90.3 fL 81.0-99.0 [facility] Monocytes Auto (Bld) [#/Vol] on 05-06-2024 Monocytes (Bld) [#/Vol] 0.7 10 3/uL 0.3-0.8 [facility] Monocytes/100 WBC Auto (Bld) on 05-06-2024 Monocytes/100 WBC (Bld) 10.6 % 1.7-12.0 [facility] Neutrophils Auto (Bld) [#/Vo l]on 05-06-2024 Neutrophils (Bld) [#/Vol] 4.3 10 3/uL 1.4-6.5 [facility] Neutrophils/100 WBC Auto (Bl d)on 05-06-2024 Neutrophils/100 WBC (Bld) 63.9 % 43.0-75.0 [facility] No Panel Informationon 05-06 Eosinophils # (Auto) 0.2 10 3/uL 0.0-0.7 [facility] Immature Granulocyte # (Auto) 0.01 10 3/uL 0.00-0.03 [facility] Troponin I High Sensitivity 13.2 pg/mL 4.0-51.3 [facility] Comment on above: CUT-OFF POINTS HAVE BEEN [...] AND CLINICAL INFORMATION. 2762.0 pg/mL High <=1800.0 [facility] 13.2 pg/mL 4.0-51.3 [facility] 1.6 mg/dL Low 1.8-2.4 [facility] 2.5 g/dL Low 3.4-5.0 [facility] 0.2 10 3/uL 0.0-0.7 [facility] 75 U/L 46-116 [facility] 16 U/L 14-59 [facility] 11 U/L Low 15-37 [facility] 31.0 [facility] 0.01 10 3/uL 0.00-0.03 [facility] 49.0 mg/dL High 7.0-18.0 [facility] 0.1 % 0.0-0.5 [facility] 8.4 mg/dL Low 8.5-10.1 [facility] 107 mmol/L 98-107 [facility] 25.7 mmol/L 21.0-32.0 [facility] 1.58 mg/dL High 0.55-1.02 [facility] 38 Low >=60 [facility] 146 mg/dL High 74-106 [facility] 4.1 mmol/L 3.5-5.1 [facility] 141 mmol/L 136-145 [facility] 0.4 mg/dL 0.2-1.0 [facility] 6.8 g/dL 6.4-8.2 [facility] Platelet mean volume Auto (B ld) [Entitic vol]on 05-06-2024 Platelet mean volume (Bld) [Entitic vol] 11.3 fL 9.5-13.5 [facility] Platelets Auto (Bld) [#/Vol] on 05-06-2024 Platelets (Bld) [#/Vol] 146 10 3/uL Low 150-450 [facility] RBC Auto (Bld) [#/Vol]on RBC (Bld) [#/Vol] 3.83 10 6/uL Low 4.20-5.40 [facility] Serum or plasma albumin/glob ulin mass ratioon 05-06-2024 Albumin/Globulin [Mass ratio] 0.6 {ratio} [facility] Serum or plasma anion gap de terminationon 05-06-2024 Anion gap [Moles/Vol] 12.4 mmol/L [facility] Basophils Auto (Bld) [#/Vol] on 05-05-2024 Basophils (Bld) [#/Vol] 0.1 10 3/uL 0.0-0.1 [facility] Basophils/100 WBC Auto (Bld) on 05-05-2024 Basophils/100 WBC (Bld) 0.9 % 0.2-2.0 [facility] Eosinophils/100 WBC Auto (Bl d)on 05-05-2024 Eosinophils/100 WBC (Bld) 1.9 % 0.9-7.0 [facility] Erythrocyte distribution wid th Auto (RBC) [Ratio]on 05-05-2024 Erythrocyte distribution width (RBC) [Ratio] 13.4 % 11.0-15.0 [facility] Estimated glomerular filtrat ion rate (GFR) non- Americanon 05-05-2024 GFR/1.73 sq M.predicted among non-blacks MDRD (S/P/Bld) [Vol rate/Area] 29 mL/min/{1.73_m2} Low >=60 [facility] Globulin Calc (S) [Mass/Vol] on 05-05-2024 Globulin (S) [Mass/Vol] 4.4 g/dL [facility] Hematocrit Auto (Bld) [Volum e fraction]on 05-05-2024 Hematocrit (Bld) [Volume fraction] 33.8 % Low 36.0-48.0 [facility] Hemoglobin [Mass/volume] in Bloodon 05-05-2024 Hemoglobin (Bld) [Mass/Vol] 11.1 g/dL Low 12.0-16.0 [facility] Laboratory - Chemistry and C hemistry - challengeon 05-05-2024 Albumin [Mass/Vol] 2.6 g/dL Low 3.4-5.0 [facility] ALP [Catalytic activity/Vol] 74 U/L 46-116 [facility] ALT [Catalytic activity/Vol] 17 U/L 14-59 [facility] AST [Catalytic activity/Vol] 12 U/L Low 15-37 [facility] Bilirubin [Mass/Vol] 0.4 mg/dL 0.2-1.0 [facility] Calcium [Mass/Vol] 6.1 mg/dL Low 8.5-10.1 [facility] Chloride [Moles/Vol] 105 mmol/L 98-107 [facility] CO2 [Moles/Vol] 24.1 mmol/L 21.0-32.0 [facility] Creatinine [Mass/Vol] 1.71 mg/dL High 0.55-1.[address] [facility] GFR/1.73 sq M.predicted MDRD (S/P/Bld) [Vol rate/Area] 35 mL/min/{1.73_m2} Low >=60 [facility] Glucose [Mass/Vol] 202 mg/dL High 74-106 [facility] Magnesium [Mass/Vol] 1.5 mg/dL Low 1.8-2.4 [facility] Natriuretic peptide B (Bld) [Mass/Vol] 2725.0 pg/mL High <=1800.0 [facility] Comment on above: RESULTS CALLED TO Frances Bryant (Mert)@BY Franchesca Huynh MLT at 0547 Potassium [Moles/Vol] 5.9 mmol/L High 3.5-5.[address] [facility] Protein [Mass/Vol] 7.0 g/dL 6.4-8.2 [facility] Sodium [Moles/Vol] 139 mmol/L 136-145 [facility] Urea nitrogen [Mass/Vol] 69.0 mg/dL High 7.0-18.0 [facility] Urea nitrogen/Creatinine [Mass ratio] 40.4 mg/mg [facility] Laboratory - Hematology and Cell countson 05-05-2024 Immature granulocytes/100 WBC (Bld) 0.3 % 0.0-0.5 [facility] Leukocytes [#/volume] correc gali for nucleated erythrocytes in Blood by Automated counon 05-05-2024 WBC corrected for nucl RBC Auto (Bld) [#/Vol] 6.9 10 3/uL 4.0-11.0 [facility] Lymphocytes Auto (Bld) [#/Vo l]on 05-05-2024 Lymphocytes (Bld) [#/Vol] 1.2 10 3/uL 1.2-3.8 [facility] Lymphocytes/100 WBC Auto (Bl d)on 05-05-2024 Lymphocytes/100 WBC (Bld) 18.0 % Low 20.5-60.0 [facility] MCH Auto (RBC) [Entitic mass ]on 05-05-2024 MCH (RBC) [Entitic mass] 29.3 pg 26.7-34.0 [facility] MCHC Auto (RBC) [Mass/Vol]on 05-05-2024 MCHC (RBC) [Mass/Vol] 32.8 g/dL 29.9-35.[address] [facility] MCV Auto (RBC) [Entitic vol] on 05-05-2024 MCV (RBC) [Entitic vol] 89.2 fL 81.0-99.0 [facility] Monocytes Auto (Bld) [#/Vol] on 05-05-2024 Monocytes (Bld) [#/Vol] 0.6 10 3/uL 0.3-0.8 [facility] Monocytes/100 WBC Auto (Bld) on 05-05-2024 Monocytes/100 WBC (Bld) 8.7 % 1.7-12.0 [facility] Neutrophils Auto (Bld) [#/Vo l]on 05-05-2024 Neutrophils (Bld) [#/Vol] 4.8 10 3/uL 1.4-6.5 [facility] Neutrophils/100 WBC Auto (Bl d)on 05-05-2024 Neutrophils/100 WBC (Bld) 70.2 % 43.0-75.0 [facility] No Panel Informationon 05-05 Eosinophils # (Auto) 0.1 10 3/uL 0.0-0.[address] [facility] Immature Granulocyte # (Auto) 0.02 10 3/uL 0.00-0.03 [facility] Troponin I High Sensitivity 14.0 pg/mL 4.0-51.3 [facility] Comment on above: CUT-OFF POINTS HAVE BEEN [...] AND CLINICAL INFORMATION. 2725.0 pg/mL High <=1800.0 [facility] 14.0 pg/mL 4.0-51.3 [facility] 1.5 mg/dL Low 1.8-2.4 [facility] 2.6 g/dL Low 3.4-5.0 [facility] 0.1 10 3/uL 0.0-0.7 [facility] 74 U/L 46-116 [facility] 17 U/L 14-59 [facility] 12 U/L Low 15-37 [facility] 40.4 [facility] 0.02 10 3/uL 0.00-0.03 [facility] 69.0 mg/dL High 7.0-18.0 [facility] 0.3 % 0.0-0.5 [facility] 6.1 mg/dL Low 8.5-10.1 [facility] 105 mmol/L 98-107 [facility] 24.1 mmol/L 21.0-32.0 [facility] 1.71 mg/dL High 0.55-1.02 [facility] 35 Low >=60 [facility] 202 mg/dL High 74-106 [facility] 5.9 mmol/L High 3.5-5.1 [facility] 139 mmol/L 136-145 [facility] 0.4 mg/dL 0.2-1.0 [facility] 7.0 g/dL 6.4-8.2 [facility] Platelet mean volume Auto (B ld) [Entitic vol]on 05-05-2024 Platelet mean volume (Bld) [Entitic vol] 11.8 fL 9.5-13.5 [facility] Platelets Auto (Bld) [#/Vol] on 05-05-2024 Platelets (Bld) [#/Vol] 173 10 3/uL 150-450 [facility] RBC Auto (Bld) [#/Vol]on RBC (Bld) [#/Vol] 3.79 10 6/uL Low 4.20-5.40 [facility] Serum or plasma albumin/glob ulin mass ratioon 05-05-2024 Albumin/Globulin [Mass ratio] 0.6 {ratio} [facility] Serum or plasma anion gap de terminationon 05-05-2024 Anion gap [Moles/Vol] 15.8 [facility] Basophils Auto (Bld) [#/Vol] on 05-04-2024 Basophils (Bld) [#/Vol] 0.1 10 3/uL 0.0-0.1 [facility] Basophils/100 WBC Auto (Bld) on 05-04-2024 Basophils/100 WBC (Bld) 0.9 % 0.2-2.0 [facility] Eosinophils/100 WBC Auto (Bl d)on 05-04-2024 Eosinophils/100 WBC (Bld) 1.7 % 0.9-7.0 [facility] Erythrocyte distribution wid th Auto (RBC) [Ratio]on 05-04-2024 Erythrocyte distribution width (RBC) [Ratio] 13.6 % 11.0-15.0 [facility] Estimated glomerular filtrat ion rate (GFR) non- Americanon 05-04-2024 GFR/1.73 sq M.predicted among non-blacks MDRD (S/P/Bld) [Vol rate/Area] 21 mL/min/{1.73_m2} Low >=60 [facility] Globulin Calc (S) [Mass/Vol] on 05-04-2024 Globulin (S) [Mass/Vol] 4.9 g/dL [facility] Hematocrit Auto (Bld) [Volum e fraction]on 05-04-2024 Hematocrit (Bld) [Volume fraction] 37.6 % 36.0-48.0 [facility] Hemoglobin [Mass/volume] in Bloodon 05-04-2024 Hemoglobin (Bld) [Mass/Vol] 12.0 g/dL 12.0-16.0 [facility] Laboratory - Chemistry and C hemistry - challengeon 05-04-2024 Bilirubin Ql (U) Negative NEGATIVE [facility] Glucose (U) [Mass/Vol] 250 mg/dL Abnormal NEGATIVE [facility] Ketones Ql (U) Negative NEGATIVE [facility] pH (U) 6.0 [pH] 5.0-9.0 [facility] Specific gravity (U) [Rel density] 1.015 1.005-1.025 [facility] Urobilinogen Qn (U) 0.2 {Meka'U}/dL 0.2-1.0 [facility] Albumin [Mass/Vol] 2.8 g/dL Low 3.4-5.0 [facility] ALP [Catalytic activity/Vol] 86 U/L 46-116 [facility] ALT [Catalytic activity/Vol] 16 U/L 14-59 [facility] Ammonia (P) [Moles/Vol] 12 umol/L 11-32 [facility] AST [Catalytic activity/Vol] 8 U/L Low 15-37 [facility] Bilirubin [Mass/Vol] 0.4 mg/dL 0.2-1.0 [facility] Calcium [Mass/Vol] 8.8 mg/dL 8.5-10.1 [facility] Chloride [Moles/Vol] 101 mmol/L 98-107 [facility] CO2 [Moles/Vol] 22.4 mmol/L 21.0-32.0 [facility] Creatinine [Mass/Vol] 2.24 mg/dL High 0.55-1.[address] [facility] GFR/1.73 sq M.predicted MDRD (S/P/Bld) [Vol rate/Area] 26 mL/min/{1.73_m2} Low >=60 [facility] Glucose [Mass/Vol] 369 mg/dL High 74-106 [facility] Lactate [Moles/Vol] 1.2 mmol/L 0.4-2.0 [facility] Magnesium [Mass/Vol] 1.7 mg/dL Low 1.8-2.4 [facility] Natriuretic peptide B (Bld) [Mass/Vol] 2342.0 pg/mL High <=1800.0 [facility] Comment on above: RESULTS CALLED TO RENETTA Renteria RN @BY Andrea Long, MLTat 1126 Potassium [Moles/Vol] 5.6 mmol/L High 3.5-5.[address] [facility] Protein [Mass/Vol] 7.7 g/dL 6.4-8.2 [facility] Sodium [Moles/Vol] 134 mmol/L Low 136-145 [facility] T4 [Mass/Vol] 11.80 ug/dL 4.80-13.90 [facility] TSH Qn 0.933 m[IU]/L 0.358-3.740 [facility] Urea nitrogen [Mass/Vol] 86.0 mg/dL High 7.0-18.0 [facility] Comment on above: RESULTS CALLED TO RENETTA Renteria RN @BY Andrea Long MLTat 1126 Urea nitrogen/Creatinine [Mass ratio] 38.4 mg/mg [facility] Laboratory - Hematology and Cell countson 05-04-2024 Immature granulocytes/100 WBC (Bld) 0.3 % 0.0-0.5 [facility] Laboratory - Microbiology an d Antimicrobial susceptibilityOrdered By: Carl Morales on 05-04-2024 Bacteria identified Cx Nom (U) [facility] Laboratory - Specimen inform ationon 05-04-2024 Appearance (U) SLIGHTLY CLOUDY Abnormal CLEAR [facility] Color (U) YELLOW YELLOW [facility] Laboratory - Urinalysison Hyaline casts LM Ql (Urine sed) RARE [facility] Leukocyte esterase Test strip Ql (U) Negative NEGATIVE [facility] Mucus Ql (Urine sed) NONE SEEN NONE SEEN [facility] Nitrite Ql (U) Negative NEGATIVE [facility] Protein Ql (U) 100 mg/dL Abnormal NEG/TRACE [facility] Leukocytes [#/volume] correc gali for nucleated erythrocytes in Blood by Automated counon 05-04-2024 WBC corrected for nucl RBC Auto (Bld) [#/Vol] 6.9 10 3/uL 4.0-11.0 [facility] Lymphocytes Auto (Bld) [#/Vo l]on 05-04-2024 Lymphocytes (Bld) [#/Vol] 1.2 10 3/uL 1.2-3.8 [facility] Lymphocytes/100 WBC Auto (Bl d)on 05-04-2024 Lymphocytes/100 WBC (Bld) 17.8 % Low 20.5-60.0 [facility] MCH Auto (RBC) [Entitic mass ]on 05-04-2024 MCH (RBC) [Entitic mass] 29.3 pg 26.7-34.0 [facility] MCHC Auto (RBC) [Mass/Vol]on 05-04-2024 MCHC (RBC) [Mass/Vol] 31.9 g/dL 29.9-35.[address] [facility] MCV Auto (RBC) [Entitic vol] on 05-04-2024 MCV (RBC) [Entitic vol] 91.9 fL 81.0-99.0 [facility] Monocytes Auto (Bld) [#/Vol] on 05-04-2024 Monocytes (Bld) [#/Vol] 0.7 10 3/uL 0.3-0.8 [facility] Monocytes/100 WBC Auto (Bld) on 05-04-2024 Monocytes/100 WBC (Bld) 10.4 % 1.7-12.0 [facility] Neutrophils Auto (Bld) [#/Vo l]on 05-04-2024 Neutrophils (Bld) [#/Vol] 4.8 10 3/uL 1.4-6.5 [facility] Neutrophils/100 WBC Auto (Bl d)on 05-04-2024 Neutrophils/100 WBC (Bld) 68.9 % 43.0-75.0 [facility] No Panel Informationon 05-04 Acetone Level Negative NEGATIVE [facility] Negative NEGATIVE [facility] Urine Bacteria MODERATE #/HPF Abnormal NONE SEEN [facility] Urine Culture Reflexed ALREADY ORDERED [facility] Urine Microscopic Review YES [facility] Urine Occult Blood MODERATE Abnormal NEGATIVE [facility] Urine Other Casts SEEN #/LPF Abnormal NONE SEEN [facility] Urine Other Crystals None Seen #/HPF None Seen [facility] Urine RBC 2-5 #/HPF Abnormal 0-2 [facility] Urine Squamous Epithelial Cells FEW #/LPF Abnormal NONE/RARE [facility] Urine WBC 2-5 #/HPF Abnormal NONE SEEN [facility] ALREADY ORDERED [facility] YES [facility] SEEN #/LPF Abnormal NONE SEEN [facility] Negative NEGATIVE [facility] None Seen #/HPF None Seen [facility] MODERATE Abnormal NEGATIVE [facility] MODERATE #/HPF Abnormal NONE SEEN [facility] SLIGHTLY CLOUDY Abnormal CLEAR [facility] RARE [facility] YELLOW YELLOW [facility] NONE SEEN NONE SEEN [facility] 250 mg/dL Abnormal NEGATIVE [facility] 2-5 #/HPF Abnormal NONE SEEN [facility] FEW #/LPF Abnormal NONE/RARE [facility] 6.0 5.0-9.0 [facility] 100 mg/dL Abnormal NEG/TRACE [facility] 1.015 1.005-1.025 [facility] 0.2 EU/dL 0.2-1.0 [facility] Eosinophils # (Auto) 0.1 10 3/uL 0.0-0.7 [facility] Immature Granulocyte # (Auto) 0.02 10 3/uL 0.00-0.03 [facility] Troponin I High Sensitivity 10.5 pg/mL 4.0-51.3 [facility] Comment on above: CUT-OFF POINTS HAVE BEEN [...] Partial Pressure CO2 38.5 mm[Hg] Low 40.0-52.0 [facility] Venous Blood pH 7.353 7.330-7.430 [facility] 0.933 u[iU]/mL 0.358-3.740 [facility] 11.80 ug/dL 4.80-13.90 [facility] 1.7 mg/dL Low 1.8-2.4 [facility] 2342.0 pg/mL High <=1800.0 [facility] 1.2 mmol/L 0.4-2.0 [facility] 10.5 pg/mL 4.0-51.3 [facility] 12 umol/L 11-32 [facility] 38.5 mm[Hg] Low 40.0-52.0 [facility] 7.353 7.330-7.430 [facility] 2.8 g/dL Low 3.4-5.0 [facility] 0.1 10 3/uL 0.0-0.7 [facility] 86 U/L 46-116 [facility] 16 U/L 14-59 [facility] 8 U/L Low 15-37 [facility] 38.4 [facility] 0.02 10 3/uL 0.00-0.03 [facility] 86.0 mg/dL High 7.0-18.0 [facility] 0.3 % 0.0-0.5 [facility] 8.8 mg/dL 8.5-10.1 [facility] 101 mmol/L 98-107 [facility] 22.4 mmol/L 21.0-32.0 [facility] 2.24 mg/dL High 0.55-1.02 [facility] 26 Low >=60 [facility] 369 mg/dL High 74-106 [facility] 5.6 mmol/L High 3.5-5.1 [facility] 134 mmol/L Low 136-145 [facility] 0.4 mg/dL 0.2-1.0 [facility] 7.7 g/dL 6.4-8.2 [facility] No Panel InformationOrdered By: LAMINE SINGH on 05-04-2024 Blood Culture 1 [facility] Platelet mean volume Auto (B ld) [Entitic vol]on 05-04-2024 Platelet mean volume (Bld) [Entitic vol] 11.4 fL 9.5-13.5 [facility] Platelets Auto (Bld) [#/Vol] on 05-04-2024 Platelets (Bld) [#/Vol] 160 10 3/uL 150-450 [facility] RBC Auto (Bld) [#/Vol]on RBC (Bld) [#/Vol] 4.09 10 6/uL Low 4.20-5.40 [facility] Serum or plasma albumin/glob ulin mass ratioon 05-04-2024 Albumin/Globulin [Mass ratio] 0.6 {ratio} [facility] Serum or plasma anion gap de terminationon 05-04-2024 Anion gap [Moles/Vol] 16.2 mmol/L Fi [facility] Basophils Auto (Bld) [#/Vol] on 05-01-2024 Basophils (Bld) [#/Vol] 0.1 10 3/uL 0.0-0.1 [facility] Basophils/100 WBC Auto (Bld) on 05-01-2024 Basophils/100 WBC (Bld) 0.7 % 0.2-2.0 [facility] Eosinophils/100 WBC Auto (Bl d)on 05-01-2024 Eosinophils/100 WBC (Bld) 2.3 % 0.9-7.0 [facility] Erythrocyte distribution wid th Auto (RBC) [Ratio]on 05-01-2024 Erythrocyte distribution width (RBC) [Ratio] 13.6 % 11.0-15.0 [facility] Estimated glomerular filtrat ion rate (GFR) non- Americanon 05-01-2024 GFR/1.73 sq M.predicted among non-blacks MDRD (S/P/Bld) [Vol rate/Area] 22 mL/min/{1.73_m2} Low >=60 [facility] Globulin Calc (S) [Mass/Vol] on 05-01-2024 Globulin (S) [Mass/Vol] 4.4 g/dL [facility] Hematocrit Auto (Bld) [Volum e fraction]on 05-01-2024 Hematocrit (Bld) [Volume fraction] 37.5 % 36.0-48.0 [facility] Hemoglobin [Mass/volume] in Bloodon 05-01-2024 Hemoglobin (Bld) [Mass/Vol] 12.1 g/dL 12.0-16.0 [facility] Laboratory - Chemistry and C hemistry - challengeon 05-01-2024 Calcium [Mass/Vol] 9.2 mg/dL 8.5-10.1 [facility] Chloride [Moles/Vol] 104 mmol/L 98-107 [facility] CO2 [Moles/Vol] 23.2 mmol/L 21.0-32.0 [facility] Creatinine [Mass/Vol] 2.14 mg/dL High 0.55-1.[address] [facility] GFR/1.73 sq M.predicted MDRD (S/P/Bld) [Vol rate/Area] 27 mL/min/{1.73_m2} Low >=60 [facility] Glucose [Mass/Vol] 220 mg/dL High 74-106 [facility] Potassium [Moles/Vol] 5.3 mmol/L High 3.5-5.[address] [facility] Sodium [Moles/Vol] 134 mmol/L Low 136-145 [facility] Urea nitrogen [Mass/Vol] 87.0 mg/dL High 7.0-18.0 [facility] Comment on above: RESULTS CALLED TO Klaus Michaels RN @BY Sury Blaynedaljit [id number] Urea nitrogen/Creatinine [Mass ratio] 40.7 mg/mg [facility] Albumin [Mass/Vol] 2.8 g/dL Low 3.4-5.0 [facility] ALP [Catalytic activity/Vol] 80 U/L 46-116 [facility] ALT [Catalytic activity/Vol] 16 U/L 14-59 [facility] AST [Catalytic activity/Vol] 11 U/L Low 15-37 [facility] Bilirubin [Mass/Vol] 0.4 mg/dL 0.2-1.0 [facility] Natriuretic peptide B (Bld) [Mass/Vol] 1624.0 pg/mL <=1800.0 [facility] Protein [Mass/Vol] 7.2 g/dL 6.4-8.2 [facility] Laboratory - Hematology and Cell countson 05-01-2024 Immature granulocytes/100 WBC (Bld) 0.1 % 0.0-0.5 [facility] Leukocytes [#/volume] correc gali for nucleated erythrocytes in Blood by Automated counon 05-01-2024 WBC corrected for nucl RBC Auto (Bld) [#/Vol] 7.4 10 3/uL 4.0-11.0 [facility] Lymphocytes Auto (Bld) [#/Vo l]on 05-01-2024 Lymphocytes (Bld) [#/Vol] 2.2 10 3/uL 1.2-3.8 [facility] Lymphocytes/100 WBC Auto (Bl d)on 05-01-2024 Lymphocytes/100 WBC (Bld) 29.4 % 20.5-60.0 [facility] MCH Auto (RBC) [Entitic mass ]on 05-01-2024 MCH (RBC) [Entitic mass] 29.2 pg 26.7-34.0 [facility] MCHC Auto (RBC) [Mass/Vol]on 05-01-2024 MCHC (RBC) [Mass/Vol] 32.3 g/dL 29.9-35.[address] [facility] MCV Auto (RBC) [Entitic vol] on 05-01-2024 MCV (RBC) [Entitic vol] 90.4 fL 81.0-99.0 [facility] Monocytes Auto (Bld) [#/Vol] on 05-01-2024 Monocytes (Bld) [#/Vol] 0.9 10 3/uL High 0.3-0.8 [facility] Monocytes/100 WBC Auto (Bld) on 05-01-2024 Monocytes/100 WBC (Bld) 11.5 % 1.7-12.0 [facility] Neutrophils Auto (Bld) [#/Vo l]on 05-01-2024 Neutrophils (Bld) [#/Vol] 4.1 10 3/uL 1.4-6.5 [facility] Neutrophils/100 WBC Auto (Bl d)on 05-01-2024 Neutrophils/100 WBC (Bld) 56.0 % 43.0-75.0 [facility] No Panel Informationon 05-01 40.7 [facility] 87.0 mg/dL High 7.0-18.0 [facility] 9.2 mg/dL 8.5-10.1 [facility] 104 mmol/L 98-107 [facility] 23.2 mmol/L 21.0-32.0 [facility] 2.14 mg/dL High 0.55-1.02 [facility] 27 Low >=60 [facility] 220 mg/dL High 74-106 [facility] 5.3 mmol/L High 3.5-5.1 [facility] 134 mmol/L Low 136-145 [facility] Eosinophils # (Auto) 0.2 10 3/uL 0.0-0.[address] [facility] Immature Granulocyte # (Auto) 0.01 10 3/uL 0.00-0.03 [facility] 1624.0 pg/mL <=1800.0 [facility] 2.8 g/dL Low 3.4-5.0 [facility] 0.2 10 3/uL 0.0-0.7 [facility] 80 U/L 46-116 [facility] 16 U/L 14-59 [facility] 11 U/L Low 15-37 [facility] 0.01 10 3/uL 0.00-0.03 [facility] 0.1 % 0.0-0.5 [facility] 0.4 mg/dL 0.2-1.0 [facility] 7.2 g/dL 6.4-8.2 [facility] Platelet mean volume Auto (B ld) [Entitic vol]on 05-01-2024 Platelet mean volume (Bld) [Entitic vol] 11.6 fL 9.5-13.5 [facility] Platelets Auto (Bld) [#/Vol] on 05-01-2024 Platelets (Bld) [#/Vol] 151 10 3/uL 150-450 [facility] RBC Auto (Bld) [#/Vol]on RBC (Bld) [#/Vol] 4.15 10 6/uL Low 4.20-5.40 [facility] Serum or plasma albumin/glob ulin mass ratioon 05-01-2024 Albumin/Globulin [Mass ratio] 0.6 {ratio} [facility] Serum or plasma anion gap de terminationon 05-01-2024 Anion gap [Moles/Vol] 12.1 mmol/L Fi [facility] Basophils Auto (Bld) [#/Vol] on 04-30-2024 Basophils (Bld) [#/Vol] 0.1 10 3/uL 0.0-0.1 [facility] Basophils/100 WBC Auto (Bld) on 04-30-2024 Basophils/100 WBC (Bld) 0.9 % 0.2-2.0 [facility] Eosinophils/100 WBC Auto (Bl d)on 04-30-2024 Eosinophils/100 WBC (Bld) 2.4 % 0.9-7.0 [facility] Erythrocyte distribution wid th Auto (RBC) [Ratio]on 04-30-2024 Erythrocyte distribution width (RBC) [Ratio] 13.5 % 11.0-15.0 [facility] Estimated glomerular filtrat ion rate (GFR) non- Americanon 04-30-2024 GFR/1.73 sq M.predicted among non-blacks MDRD (S/P/Bld) [Vol rate/Area] 15 mL/min/{1.73_m2} Low >=60 [facility] Fibrin D-dimer [Presence] in Platelet poor plasma by Latex agglutinationon 04-30-2024 Fibrin D-dimer LA Ql (PPP) 0.24 mg/L FEU <=0.59 [facility] Comment on above: Increases in D-Dimer concentration [...] Hematocrit (Bld) [Volume fraction] 38.6 % 36.0-48.0 [facility] Hemoglobin [Mass/volume] in Bloodon 04-30-2024 Hemoglobin (Bld) [Mass/Vol] 12.5 g/dL 12.0-16.0 [facility] Laboratory - Chemistry and C hemistry - challengeon 04-30-2024 Calcium [Mass/Vol] 9.0 mg/dL 8.5-10.1 [facility] Chloride [Moles/Vol] 100 mmol/L 98-107 [facility] CO2 [Moles/Vol] 24.4 mmol/L 21.0-32.0 [facility] Creatinine [Mass/Vol] 3.02 mg/dL High 0.55-1.[address] [facility] GFR/1.73 sq M.predicted MDRD (S/P/Bld) [Vol rate/Area] 18 mL/min/{1.73_m2} Low >=60 [facility] Glucose [Mass/Vol] 271 mg/dL High 74-106 [facility] Magnesium [Mass/Vol] 1.8 mg/dL 1.8-2.4 [facility] Natriuretic peptide B (Bld) [Mass/Vol] 1485.0 pg/mL <=1800.0 [facility] Potassium [Moles/Vol] 5.3 mmol/L High 3.5-5.[address] [facility] Sodium [Moles/Vol] 133 mmol/L Low 136-145 [facility] Urea nitrogen [Mass/Vol] 99.0 mg/dL High 7.0-18.0 [facility] Comment on above: RESULTS CALLED TO Yoel WADE)@BY Franchesca Huynh MLT at 0603 Urea nitrogen/Creatinine [Mass ratio] 32.8 mg/mg [facility] Laboratory - Hematology and Cell countson 04-30-2024 Immature granulocytes/100 WBC (Bld) 0.1 % 0.0-0.5 [facility] Leukocytes [#/volume] correc gali for nucleated erythrocytes in Blood by Automated counon 04-30-2024 WBC corrected for nucl RBC Auto (Bld) [#/Vol] 7.5 10 3/uL 4.0-11.0 [facility] Lymphocytes Auto (Bld) [#/Vo l]on 04-30-2024 Lymphocytes (Bld) [#/Vol] 2.1 10 3/uL 1.2-3.8 [facility] Lymphocytes/100 WBC Auto (Bl d)on 04-30-2024 Lymphocytes/100 WBC (Bld) 27.8 % 20.5-60.0 [facility] MCH Auto (RBC) [Entitic mass ]on 04-30-2024 MCH (RBC) [Entitic mass] 29.6 pg 26.7-34.0 [facility] MCHC Auto (RBC) [Mass/Vol]on 04-30-2024 MCHC (RBC) [Mass/Vol] 32.4 g/dL 29.9-35.[address] [facility] MCV Auto (RBC) [Entitic vol] on 04-30-2024 MCV (RBC) [Entitic vol] 91.5 fL 81.0-99.0 [facility] Monocytes Auto (Bld) [#/Vol] on 04-30-2024 Monocytes (Bld) [#/Vol] 0.8 10 3/uL 0.3-0.8 [facility] Monocytes/100 WBC Auto (Bld) on 04-30-2024 Monocytes/100 WBC (Bld) 10.0 % 1.7-12.0 [facility] Neutrophils Auto (Bld) [#/Vo l]on 04-30-2024 Neutrophils (Bld) [#/Vol] 4.4 10 3/uL 1.4-6.5 [facility] Neutrophils/100 WBC Auto (Bl d)on 04-30-2024 Neutrophils/100 WBC (Bld) 58.8 % 43.0-75.0 [facility] No Panel Informationon 04-30 Troponin I High Sensitivity 12.6 pg/mL 4.0-51.3 [facility] Comment on above: CUT-OFF POINTS HAVE BEEN [...] DIAGNOSTIC AND CLINICAL INFORMATION. 1.8 mg/dL 1.8-2.4 [facility] 1485.0 pg/mL <=1800.0 [facility] 12.6 pg/mL 4.0-51.3 [facility] 32.8 [facility] 99.0 mg/dL High 7.0-18.0 [facility] 9.0 mg/dL 8.5-10.1 [facility] 100 mmol/L 98-107 [facility] 24.4 mmol/L 21.0-32.0 [facility] 3.02 mg/dL High 0.55-1.02 [facility] 18 Low >=60 [facility] 271 mg/dL High 74-106 [facility] 5.3 mmol/L High 3.5-5.1 [facility] 133 mmol/L Low 136-145 [facility] Eosinophils # (Auto) 0.2 10 3/uL 0.0-0.[address] [facility] Immature Granulocyte # (Auto) 0.01 10 3/uL 0.00-0.03 [facility] 0.2 10 3/uL 0.0-0.7 [facility] 0.01 10 3/uL 0.00-0.03 [facility] 0.1 % 0.0-0.5 [facility] Platelet mean volume Auto (B ld) [Entitic vol]on 04-30-2024 Platelet mean volume (Bld) [Entitic vol] 12.2 fL 9.5-13.5 [facility] Platelets Auto (Bld) [#/Vol] on 04-30-2024 Platelets (Bld) [#/Vol] 221 10 3/uL 150-450 [facility] RBC Auto (Bld) [#/Vol]on RBC (Bld) [#/Vol] 4.22 10 6/uL 4.20-5.40 [facility] Serum or plasma anion gap de terminationon 04-30-2024 Anion gap [Moles/Vol] 13.9 [facility] Basophils Auto (Bld) [#/Vol] on 03-28-2024 Basophils (Bld) [#/Vol] 0.1 10 3/uL 0.0-0.1 [facility] Basophils/100 WBC Auto (Bld) on 03-28-2024 Basophils/100 WBC (Bld) 0.9 % 0.2-2.0 [facility] Eosinophils/100 WBC Auto (Bl d)on 03-28-2024 Eosinophils/100 WBC (Bld) 1.7 % 0.9-7.0 [facility] Erythrocyte distribution wid th Auto (RBC) [Ratio]on 03-28-2024 Erythrocyte distribution width (RBC) [Ratio] 14.2 % 11.0-15.0 [facility] Estimated glomerular filtrat ion rate (GFR) non- Americanon 03-28-2024 GFR/1.73 sq M.predicted among non-blacks MDRD (S/P/Bld) [Vol rate/Area] 39 mL/min/{1.73_m2} Low >=60 [facility] Globulin Calc (S) [Mass/Vol] on 03-28-2024 Globulin (S) [Mass/Vol] 4.8 g/dL [facility] Hematocrit Auto (Bld) [Volum e fraction]on 03-28-2024 Hematocrit (Bld) [Volume fraction] 40.0 % 36.0-48.0 [facility] Hemoglobin [Mass/volume] in Bloodon 03-28-2024 Hemoglobin (Bld) [Mass/Vol] 12.6 g/dL 12.0-16.0 [facility] Laboratory - Chemistry and C hemistry - challengeon 03-28-2024 Albumin [Mass/Vol] 2.5 g/dL Low 3.4-5.0 [facility] ALP [Catalytic activity/Vol] 93 U/L 46-116 [facility] ALT [Catalytic activity/Vol] 9 U/L Low 14-59 [facility] AST [Catalytic activity/Vol] 10 U/L Low 15-37 [facility] Bilirubin [Mass/Vol] 0.9 mg/dL 0.2-1.0 [facility] Calcium [Mass/Vol] 8.5 mg/dL 8.5-10.1 [facility] Chloride [Moles/Vol] 96 mmol/L Low 98-107 [facility] CO2 [Moles/Vol] 27.1 mmol/L 21.0-32.0 [facility] Creatinine [Mass/Vol] 1.33 mg/dL High 0.55-1.[address] [facility] GFR/1.73 sq M.predicted MDRD (S/P/Bld) [Vol rate/Area] 47 mL/min/{1.73_m2} Low >=60 [facility] Glucose [Mass/Vol] 261 mg/dL High 74-106 [facility] Magnesium [Mass/Vol] 1.8 mg/dL 1.8-2.4 [facility] Natriuretic peptide B (Bld) [Mass/Vol] 3338.0 pg/mL High <=1800.0 [facility] Comment on above: RESULTS CALLED TO Claritza Sellers (RN)@BY BRANDON BarberT at 0554 Potassium [Moles/Vol] 3.8 mmol/L 3.5-5.[address] [facility] Protein [Mass/Vol] 7.3 g/dL 6.4-8.2 [facility] Sodium [Moles/Vol] 133 mmol/L Low 136-145 [facility] Urea nitrogen [Mass/Vol] 36.0 mg/dL High 7.0-18.0 [facility] Urea nitrogen/Creatinine [Mass ratio] 27.1 mg/mg [facility] Laboratory - Hematology and Cell countson 03-28-2024 Immature granulocytes/100 WBC (Bld) 0.4 % 0.0-0.5 [facility] Leukocytes [#/volume] correc gali for nucleated erythrocytes in Blood by Automated counon 03-28-2024 WBC corrected for nucl RBC Auto (Bld) [#/Vol] 8.4 10 3/uL 4.0-11.0 [facility] Lymphocytes Auto (Bld) [#/Vo l]on 03-28-2024 Lymphocytes (Bld) [#/Vol] 1.8 10 3/uL 1.2-3.8 [facility] Lymphocytes/100 WBC Auto (Bl d)on 03-28-2024 Lymphocytes/100 WBC (Bld) 21.4 % 20.5-60.0 [facility] MCH Auto (RBC) [Entitic mass ]on 03-28-2024 MCH (RBC) [Entitic mass] 29.0 pg 26.7-34.0 [facility] MCHC Auto (RBC) [Mass/Vol]on 03-28-2024 MCHC (RBC) [Mass/Vol] 31.5 g/dL 29.9-35.[address] [facility] MCV Auto (RBC) [Entitic vol] on 03-28-2024 MCV (RBC) [Entitic vol] 92.0 fL 81.0-99.0 [facility] Monocytes Auto (Bld) [#/Vol] on 03-28-2024 Monocytes (Bld) [#/Vol] 0.8 10 3/uL 0.3-0.8 [facility] Monocytes/100 WBC Auto (Bld) on 03-28-2024 Monocytes/100 WBC (Bld) 9.7 % 1.7-12.0 [facility] Neutrophils Auto (Bld) [#/Vo l]on 03-28-2024 Neutrophils (Bld) [#/Vol] 5.6 10 3/uL 1.4-6.5 [facility] Neutrophils/100 WBC Auto (Bl d)on 03-28-2024 Neutrophils/100 WBC (Bld) 65.9 % 43.0-75.0 [facility] No Panel Informationon 03-28 Eosinophils # (Auto) 0.1 10 3/uL 0.0-0.[address] [facility] Immature Granulocyte # (Auto) 0.03 10 3/uL 0.00-0.03 [facility] 3338.0 pg/mL High <=1800.0 [facility] 1.8 mg/dL 1.8-2.4 [facility] 2.5 g/dL Low 3.4-5.0 [facility] 0.1 10 3/uL 0.0-0.7 [facility] 93 U/L 46-116 [facility] 9 U/L Low 14-59 [facility] 10 U/L Low 15-37 [facility] 27.1 [facility] 0.03 10 3/uL 0.00-0.03 [facility] 36.0 mg/dL High 7.0-18.0 [facility] 0.4 % 0.0-0.5 [facility] 8.5 mg/dL 8.5-10.1 [facility] 96 mmol/L Low 98-107 [facility] 27.1 mmol/L 21.0-32.0 [facility] 1.33 mg/dL High 0.55-1.02 [facility] 47 Low >=60 [facility] 261 mg/dL High 74-106 [facility] 3.8 mmol/L 3.5-5.1 [facility] 133 mmol/L Low 136-145 [facility] 0.9 mg/dL 0.2-1.0 [facility] 7.3 g/dL 6.4-8.2 [facility] Platelet mean volume Auto (B ld) [Entitic vol]on 03-28-2024 Platelet mean volume (Bld) [Entitic vol] 10.5 fL 9.5-13.5 [facility] Platelets Auto (Bld) [#/Vol] on 03-28-2024 Platelets (Bld) [#/Vol] 197 10 3/uL 150-450 [facility] RBC Auto (Bld) [#/Vol]on RBC (Bld) [#/Vol] 4.35 10 6/uL 4.20-5.40 [facility] Serum or plasma albumin/glob ulin mass ratioon 03-28-2024 Albumin/Globulin [Mass ratio] 0.5 {ratio} [facility] Serum or plasma anion gap de terminationon 03-28-2024 Anion gap [Moles/Vol] 13.7 mmol/L Fi [facility] Basophils Auto (Bld) [#/Vol] on 03-27-2024 Basophils (Bld) [#/Vol] 0.1 10 3/uL 0.0-0.1 [facility] Basophils/100 WBC Auto (Bld) on 03-27-2024 Basophils/100 WBC (Bld) 0.8 % 0.2-2.0 [facility] Eosinophils/100 WBC Auto (Bl d)on 03-27-2024 Eosinophils/100 WBC (Bld) 1.1 % 0.9-7.0 [facility] Erythrocyte distribution wid th Auto (RBC) [Ratio]on 03-27-2024 Erythrocyte distribution width (RBC) [Ratio] 14.2 % 11.0-15.0 [facility] Estimated glomerular filtrat ion rate (GFR) non- Americanon 03-27-2024 GFR/1.73 sq M.predicted among non-blacks MDRD (S/P/Bld) [Vol rate/Area] 44 mL/min/{1.73_m2} Low >=60 [facility] Globulin Calc (S) [Mass/Vol] on 03-27-2024 Globulin (S) [Mass/Vol] 4.6 g/dL [facility] Glucose mean value [Mass/vol ume] in Blood Estimated from glycated hemoglobinon 03-27-2024 Average glucose Estimated from glycated hemoglobin (Bld) [Mass/Vol] 275 mg/dL [facility] Hematocrit Auto (Bld) [Volum e fraction]on 03-27-2024 Hematocrit (Bld) [Volume fraction] 37.4 % 36.0-48.0 [facility] Hemoglobin [Mass/volume] in Bloodon 03-27-2024 Hemoglobin (Bld) [Mass/Vol] 12.1 g/dL 12.0-16.0 [facility] Laboratory - Chemistry and C hemistry - challengeon 03-27-2024 Albumin [Mass/Vol] 2.6 g/dL Low 3.4-5.0 [facility] ALP [Catalytic activity/Vol] 89 U/L 46-116 [facility] ALT [Catalytic activity/Vol] 12 U/L Low 14-59 [facility] AST [Catalytic activity/Vol] 9 U/L Low 15-37 [facility] Bilirubin [Mass/Vol] 0.9 mg/dL 0.2-1.0 [facility] Calcium [Mass/Vol] 9.1 mg/dL 8.5-10.1 [facility] Chloride [Moles/Vol] 99 mmol/L 98-107 [facility] CO2 [Moles/Vol] 28.8 mmol/L 21.0-32.0 [facility] Creatinine [Mass/Vol] 1.19 mg/dL High 0.55-1.[address] [facility] GFR/1.73 sq M.predicted MDRD (S/P/Bld) [Vol rate/Area] 53 mL/min/{1.73_m2} Low >=60 [facility] Glucose [Mass/Vol] 273 mg/dL High 74-106 [facility] Magnesium [Mass/Vol] 1.7 mg/dL Low 1.8-2.4 [facility] Natriuretic peptide B (Bld) [Mass/Vol] 4572.0 pg/mL High <=1800.0 [facility] Comment on above: RESULTS CALLED TO SA RA MIGUEL RN @BY Alla Kevin [id number] Potassium [Moles/Vol] 3.6 mmol/L 3.5-5.[address] [facility] Protein [Mass/Vol] 7.2 g/dL 6.4-8.2 [facility] Sodium [Moles/Vol] 135 mmol/L Low 136-145 [facility] Urea nitrogen [Mass/Vol] 34.0 mg/dL High 7.0-18.0 [facility] Urea nitrogen/Creatinine [Mass ratio] 28.6 mg/mg [facility] Laboratory - Hematology and Cell countson 03-27-2024 HbA1c (Bld) [Mass fraction] 11.2 % High 4.5-6.2 [facility] Comment on above: ADA RECOMMENDED LIMI T 4.0 - 6.0ADA THERAPEUTIC TARGET < 7.0ACTION SUGGESTED> 7.0 Immature granulocytes/100 WBC (Bld) 0.3 % 0.0-0.5 [facility] Leukocytes [#/volume] correc gali for nucleated erythrocytes in Blood by Automated counon 03-27-2024 WBC corrected for nucl RBC Auto (Bld) [#/Vol] 9.7 10 3/uL 4.0-11.0 [facility] Lymphocytes Auto (Bld) [#/Vo l]on 03-27-2024 Lymphocytes (Bld) [#/Vol] 1.3 10 3/uL 1.2-3.8 [facility] Lymphocytes/100 WBC Auto (Bl d)on 03-27-2024 Lymphocytes/100 WBC (Bld) 13.3 % Low 20.5-60.0 [facility] MCH Auto (RBC) [Entitic mass ]on 03-27-2024 MCH (RBC) [Entitic mass] 29.2 pg 26.7-34.0 [facility] MCHC Auto (RBC) [Mass/Vol]on 03-27-2024 MCHC (RBC) [Mass/Vol] 32.4 g/dL 29.9-35.[address] [facility] MCV Auto (RBC) [Entitic vol] on 03-27-2024 MCV (RBC) [Entitic vol] 90.3 fL 81.0-99.0 [facility] Monocytes Auto (Bld) [#/Vol] on 03-27-2024 Monocytes (Bld) [#/Vol] 0.8 10 3/uL 0.3-0.8 [facility] Monocytes/100 WBC Auto (Bld) on 03-27-2024 Monocytes/100 WBC (Bld) 8.4 % 1.7-12.0 [facility] Neutrophils Auto (Bld) [#/Vo l]on 03-27-2024 Neutrophils (Bld) [#/Vol] 7.4 10 3/uL High 1.4-6.5 [facility] [place] Neutrophils/100 WBC Auto (Bl d)on 03-27-2024 Neutrophils/100 WBC (Bld) 76.1 % High 43.0-75.0 [facility] [place] No Panel Informationon 03-27 Eosinophils # (Auto) 0.1 10 3/uL 0.0-0.[address] [facility] Immature Granulocyte # (Auto) 0.03 10 3/uL 0.00-0.03 [facility] [place] 4572.0 pg/mL High <=1800.0 [facility] [place] 1.7 mg/dL Low 1.8-2.4 [facility] 11.2 % High 4.5-6.2 [facility] 2.6 g/dL Low 3.4-5.0 [facility] 0.1 10 3/uL 0.0-0.7 [facility] 89 U/L 46-116 [facility] 12 U/L Low 14-59 [facility] 9 U/L Low 15-37 [facility] 28.6 [facility] 0.03 10 3/uL 0.00-0.03 [facility] 34.0 mg/dL High 7.0-18.0 [facility] 0.3 % 0.0-0.5 [facility] 9.1 mg/dL 8.5-10.1 [facility] 99 mmol/L 98-107 [facility] 28.8 mmol/L 21.0-32.0 [facility] 1.19 mg/dL High 0.55-1.02 [facility] 53 Low >=60 [facility] 273 mg/dL High 74-106 [facility] 3.6 mmol/L 3.5-5.1 [facility] 135 mmol/L Low 136-145 [facility] 0.9 mg/dL 0.2-1.0 [facility] 7.2 g/dL 6.4-8.2 [facility] Platelet mean volume Auto (B ld) [Entitic vol]on 03-27-2024 Platelet mean volume (Bld) [Entitic vol] 10.6 fL 9.5-13.5 [facility] Platelets Auto (Bld) [#/Vol] on 03-27-2024 Platelets (Bld) [#/Vol] 204 10 3/uL 150-450 [facility] RBC Auto (Bld) [#/Vol]on RBC (Bld) [#/Vol] 4.14 10 6/uL Low 4.20-5.40 [facility] Serum or plasma albumin/glob ulin mass ratioon 03-27-2024 Albumin/Globulin [Mass ratio] 0.6 {ratio} [facility] Serum or plasma anion gap de terminationon 03-27-2024 Anion gap [Moles/Vol] 10.8 mmol/L [facility] Basophils Auto (Bld) [#/Vol] on 03-26-2024 Basophils (Bld) [#/Vol] 0.1 10 3/uL 0.0-0.1 [facility] Basophils/100 WBC Auto (Bld) on 03-26-2024 Basophils/100 WBC (Bld) 0.8 % 0.2-2.0 [facility] Eosinophils/100 WBC Auto (Bl d)on 03-26-2024 Eosinophils/100 WBC (Bld) 1.2 % 0.9-7.0 [facility] Erythrocyte distribution wid th Auto (RBC) [Ratio]on 03-26-2024 Erythrocyte distribution width (RBC) [Ratio] 14.5 % 11.0-15.0 [facility] Estimated glomerular filtrat ion rate (GFR) non- Americanon 03-26-2024 GFR/1.73 sq M.predicted among non-blacks MDRD (S/P/Bld) [Vol rate/Area] 46 mL/min/{1.73_m2} Low >=60 [facility] Glucose mean value [Mass/vol ume] in Blood Estimated from glycated hemoglobinon 03-26-2024 Average glucose Estimated from glycated hemoglobin (Bld) [Mass/Vol] 275 mg/dL [facility] Hematocrit Auto (Bld) [Volum e fraction]on 03-26-2024 Hematocrit (Bld) [Volume fraction] 40.1 % 36.0-48.0 [facility] Hemoglobin [Mass/volume] in Bloodon 03-26-2024 Hemoglobin (Bld) [Mass/Vol] 12.7 g/dL 12.0-16.0 [facility] Laboratory - Chemistry and C hemistry - challengeon 03-26-2024 Calcium [Mass/Vol] 9.1 mg/dL 8.5-10.1 [facility] Chloride [Moles/Vol] 102 mmol/L 98-107 [facility] CO2 [Moles/Vol] 28.5 mmol/L 21.0-32.0 [facility] Creatinine [Mass/Vol] 1.14 mg/dL High 0.55-1.[address] [facility] Free T4 [Mass/Vol] 1.29 ng/dL 0.76-1.46 [facility] GFR/1.73 sq M.predicted MDRD (S/P/Bld) [Vol rate/Area] 56 mL/min/{1.73_m2} Low >=60 [facility] Glucose [Mass/Vol] 246 mg/dL High 74-106 [facility] Natriuretic peptide B (Bld) [Mass/Vol] 2890.0 pg/mL High <=1800.0 [facility] Comment on above: RESULTS CALLED TO YOEL ROBIN RN @BY Alla Kunz 0556 Potassium [Moles/Vol] 4.3 mmol/L 3.5-5.[address] [facility] Sodium [Moles/Vol] 136 mmol/L 136-145 [facility] TSH Qn 6.001 m[IU]/L High 0.358-3.740 [facility] Urea nitrogen [Mass/Vol] 35.0 mg/dL High 7.0-18.0 [facility] Urea nitrogen/Creatinine [Mass ratio] 30.7 mg/mg [facility] Laboratory - Hematology and Cell countson 03-26-2024 HbA1c (Bld) [Mass fraction] 11.2 % High 4.5-6.2 [facility] Comment on above: ADA RECOMMENDED LIMI T 4.0 - 6.0ADA THERAPEUTIC TARGET < 7.0ACTION SUGGESTED> 7.0 Immature granulocytes/100 WBC (Bld) 0.2 % 0.0-0.5 [facility] Leukocytes [#/volume] correc gali for nucleated erythrocytes in Blood by Automated counon 03-26-2024 WBC corrected for nucl RBC Auto (Bld) [#/Vol] 8.3 10 3/uL 4.0-11.0 [facility] Lymphocytes Auto (Bld) [#/Vo l]on 03-26-2024 Lymphocytes (Bld) [#/Vol] 1.4 10 3/uL 1.2-3.8 [facility] Lymphocytes/100 WBC Auto (Bl d)on 03-26-2024 Lymphocytes/100 WBC (Bld) 16.5 % Low 20.5-60.0 [facility] MCH Auto (RBC) [Entitic mass ]on 03-26-2024 MCH (RBC) [Entitic mass] 29.1 pg 26.7-34.0 [facility] MCHC Auto (RBC) [Mass/Vol]on 03-26-2024 MCHC (RBC) [Mass/Vol] 31.7 g/dL 29.9-35.[address] [facility] MCV Auto (RBC) [Entitic vol] on 03-26-2024 MCV (RBC) [Entitic vol] 92.0 fL 81.0-99.0 [facility] Monocytes Auto (Bld) [#/Vol] on 03-26-2024 Monocytes (Bld) [#/Vol] 0.7 10 3/uL 0.3-0.8 [facility] Monocytes/100 WBC Auto (Bld) on 03-26-2024 Monocytes/100 WBC (Bld) 7.9 % 1.7-12.0 [facility] Neutrophils Auto (Bld) [#/Vo l]on 03-26-2024 Neutrophils (Bld) [#/Vol] 6.1 10 3/uL 1.4-6.5 [facility] Neutrophils/100 WBC Auto (Bl d)on 03-26-2024 Neutrophils/100 WBC (Bld) 73.4 % 43.0-75.0 [facility] No Panel Informationon 03-26 Eosinophils # (Auto) 0.1 10 3/uL 0.0-0.7 [facility] Immature Granulocyte # (Auto) 0.02 10 3/uL 0.00-0.03 [facility] Troponin I High Sensitivity 12.4 pg/mL 4.0-51.3 [facility] Comment on above: CUT-OFF POINTS HAVE BEEN [...] DIAGNOSTIC AND CLINICAL INFORMATION. 1.29 ng/dL 0.76-1.46 [facility] 6.001 u[iU]/mL High 0.358-3.740 [facility] 2890.0 pg/mL High <=1800.0 [facility] 12.4 pg/mL 4.0-51.3 [facility] 11.2 % High 4.5-6.2 [facility] 30.7 [facility] 35.0 mg/dL High 7.0-18.0 [facility] 0.1 10 3/uL 0.0-0.7 [facility] 9.1 mg/dL 8.5-10.1 [facility] 102 mmol/L 98-107 [facility] 28.5 mmol/L 21.0-32.0 [facility] 1.14 mg/dL High 0.55-1.02 [facility] 0.02 10 3/uL 0.00-0.03 [facility] 56 Low >=60 [facility] 0.2 % 0.0-0.5 [facility] 246 mg/dL High 74-106 [facility] 4.3 mmol/L 3.5-5.1 [facility] 136 mmol/L 136-145 [facility] Platelet mean volume Auto (B ld) [Entitic vol]on 03-26-2024 Platelet mean volume (Bld) [Entitic vol] 10.8 fL 9.5-13.5 [facility] Platelets Auto (Bld) [#/Vol] on 03-26-2024 Platelets (Bld) [#/Vol] 225 10 3/uL 150-450 [facility] RBC Auto (Bld) [#/Vol]on RBC (Bld) [#/Vol] 4.36 10 6/uL 4.20-5.40 [facility] Serum or plasma anion gap de terminationon 03-26-2024 Anion gap [Moles/Vol] 9.8 mmol/L [facility] MR cervical spine wo conon 0 03-13-2024 MR cervical spine wo con [facility] [place] [address] MRI Report Signed Patient: Joe Call MR#: [id number] 0 : 1945 Acct:[id number] Age/Sex: 78 / F ADM Date: 03/13/24 Loc: [facility] Room: Type: [facility] Attending Dr: Eloina Hussein MD Copies to: [...] M.D.03/13/2024 3:47 PM Dictation Location: [place] [address] Transcribed By: [facility] 03/13/24 154 Dictated By: Jarred Randolph DO 03/13/24 154 Signed By: 03/13/24 154 Normal [facility] XR pre/post mri xrayon 03-13 XR pre/post mri xray [facility] [place] [address] MRI Report Signed Patient: Joe Call MR#: [id number] 0 : 1945 Acct:[id number] Age/Sex: 78 / F ADM Date: 03/13/24 Loc: [facility] Room: Type: [facility] Attending Dr: Eloina Hussein MD Copies to: Eloina Mullins MD Ordering Provider: Eloina Mullins MD Date of Service: 03/13/24 MR/MR lumbar spine wo con: M54.50 ([id number]) XR/XR pre/post mri xray: M54.50 MRI Lumbar [...] M.D.03/13/2024 3:58 PM Dictation Location: [place] [address] Transcribed By: [facility] 03/13/24 1558 Dictated By: Jarred Randolph DO 03/13/24 1551 Signed By: 03/13/[address] [facility] Office Visiton 03-07-2024 Follow-up visit [id number] Joe Call 1945 F Date Provider Department Center 03/07/2024 RICA DEAN [facility] Family History Problem Relation Age of Onset Coronary artery disease Other Diabetes Other Polycystic kidney disease Other Family Status - Relation Status Age at Other Level of Service:90391 [place] OFFICE/OUTPATIENT ESTABLISHED MOD MDM 30 MIN Reason for Visit and Comments: Follow-up [980537] - [address] [facility] GI PANEL (PCR)on 03-06-2023 Adenovirus F 40/41 Not detected Normal NOT DETECTED [facility] Comment on above: Performed By: #### P OCGLUC #### [facility] [address] [place] [address] Dr. Kasia Nath Astrovirus Not detected Normal NOT DETECTED [facility] Comment on above: Performed By: #### P OCGLUC #### [facility] [address] [place] [address] Dr. Kasia Nath C. Diff toxin A/B Detected Critically abnormal NOT DETECTED [facility] Comment on above: Performed By: #### P OCGLUC #### [facility] [address] [place] [address] Dr. Kasia Nath Campylobacter Detected Critically abnormal NOT DETECTED [facility] Comment on above: Performed By: #### P OCGLUC #### [facility] [address] [place] [address] Dr. Kasia Nath Cryptosporidium Not detected Normal NOT DETECTED [facility] Comment on above: Performed By: #### P OCGLUC #### [facility] [address] [place] [address] Dr. Kasia Nath Cyclos. Cayetanensis Not detected Normal NOT DETECTED [facility] Comment on above: Performed By: #### P OCGLUC #### [facility] [address] [place] [address] Dr. Kasia Nath E. Coli O157 Not Applicable Normal Not Applicable [facility] Comment on above: Performed By: #### P OCGLUC #### [facility] [address] [place] [address] Dr. Kasia Nath E. histolytica Not detected Normal NOT DETECTED [facility] Comment on above: Performed By: #### P OCGLUC #### [facility] [address] [place] [address] Dr. Kasia Nath EAEC Not detected Normal NOT DETECTED [facility] Comment on above: Performed By: #### P OCGLUC #### [facility] [address] [place] [address] Dr. Kasia Nath EIEC Not detected Normal NOT DETECTED [facility] Comment on above: Performed By: #### P OCGLUC #### [facility] [address] [place] [address] Dr. Kasia Nath EPEC Not detected Normal NOT DETECTED [facility] Comment on above: Performed By: #### P OCGLUC #### [facility] [address] [place] [address] [address] Kasia Nath ETEC Not detected Normal NOT DETECTED [facility] Comment on above: Performed By: #### P OCGLUC #### [facility] [address] [place] [address] [address] Kasia Nath G. Lamblia Not detected Normal NOT DETECTED [facility] Comment on above: Performed By: #### P OCGLUC #### [facility] [address] [place] [address] [address] Kasia KHAN CONTROLS PASSED Normal [facility] Comment on above: Performed By: #### P OCGLUC #### [facility] [address] [place] [address] Dr. Kasia FRAIRE HEADER GI PANEL BACTERIA Normal T [facility] Comment on above: Performed By: #### P OCGLUC #### [facility] [address] [place] [address] [address] Kasia GE ECOLI GI PANEL DIARRHEAGEN IC E.COLI / SHIGELLA Normal [facility] Comment on above: Performed By: #### P OCGLUC #### [facility] [address] [place] [address] Dr. Kasia GE INFO SEE BELOW Normal [facility] Comment on above: Result Comment: EAEC - Enteroaggregative E. Coli EPEC- Enteropathogenic E. Coli ETEC- Enterotoxigenic E. Coli lt/st STEC- Shigella-like toxin-producing E. Coli stx1/stx2 EIEC- Shigella/Enteroinvasive E. Coli Performed By: #### P OCGLUC #### [facility] [address] [place] [address] [address] Kasia GE PARASITES GI PANEL PARASITES Normal [facility] Comment on above: Performed By: #### P OCGLUC #### [facility] [address] [place] [address] [address] Yilan Nath GIPNLHD VIRUS GI PANEL VIRUSES Normal [facility] Comment on above: Performed By: #### P OCGLUC #### [facility] [address] [place] [address] Dr. Kasia Nath Norovirus GI/GII Not detected Normal NOT DETECTED [facility] Comment on above: Performed By: #### P OCGLUC #### [facility] [address] [place] [address] Dr. Kasia Nath P. Shigelloides Not detected Normal NOT DETECTED [facility] Comment on above: Performed By: #### P OCGLUC #### [facility] [address] [place] [address] Dr. Kasia Nath Rotavirus A Not detected Normal NOT DETECTED [facility] Comment on above: Performed By: #### P OCGLUC #### [facility] [address] [place] [address] Dr. Kasia Nath Salmonella Not detected Normal NOT DETECTED [facility] Comment on above: Performed By: #### P OCGLUC #### [facility] [address] [place] [address] Dr. Kasia Nath Sapovirus Not detected Normal NOT DETECTED [facility] Comment on above: Performed By: #### P OCGLUC #### [facility] [address] [place] [address] Dr. Kasia Nath STEC Not detected Normal NOT DETECTED [facility] Comment on above: Performed By: #### P OCGLUC #### [facility] [address] [place] [address] Dr. Kasia Nath Vibrio Not detected Normal NOT DETECTED [facility] Comment on above: Performed By: #### P OCGLUC #### [facility] [address] [place] [address] Dr. Kasia Nath Vibrio Cholera Not detected Normal NOT DETECTED [facility] Comment on above: Performed By: #### P OCGLUC #### [facility] [address] [place] [address] Dr. Kasia Nath Y. Enterocolitica Not detected Normal NOT DETECTED [facility] Comment on above: Performed By: #### P OCGLUC #### [facility] [address] [place] [address] Dr. Kasia Nath CBC AUTO DIFFon 02-14-2023 BASO # 0.0 103/ul Normal 0.0-0.1 [facility] Comment on above: Performed By: #### P OCGLUC #### [facility] [address] [place] [address] Dr. Kasia Nath Basophils/100 WBC (Bld) 0.5 % Normal 0.2-2.0 [facility] Comment on above: Performed By: #### P OCGLUC #### [facility] [address] [place] [address] Dr. Kasia Nath EO # 0.2 103/ul Normal 0.0-0.7 [facility] Comment on above: Performed By: #### P OCGLUC #### [facility] [address] [place] [address] Dr. Kasia Nath Eosinophils/100 WBC (Bld) 2.7 % Normal 0.9-7.0 [facility] Comment on above: Performed By: #### P OCGLUC #### [facility] [address] [place] [address] Dr. Kasia Nath Erythrocyte distribution width (RBC) [Ratio] 13.0 % Normal 11.0-15.0 [facility] Comment on above: Performed By: #### P OCGLUC #### [facility] [address] [place] [address] Dr. Kasia Nath Hematocrit (Bld) [Volume fraction] 35.9 % Critically low 36.0-48.0 [facility] Comment on above: Performed By: #### P OCGLUC #### [facility] [address] [place] [address] Dr. Kasia Nath Hemoglobin (Bld) [Mass/Vol] 12.0 g/dL Normal 12.0-16.0 [facility] Comment on above: Performed By: #### P OCGLUC #### [facility] [address] [place] [address] Dr. Kasia Nath IG # 0.02 10e3/ul Normal 0.00-0.03 [facility] Comment on above: Performed By: #### P OCGLUC #### [facility] [address] [place] [address] [address] Kasia Nath IG % 0.3 % Normal 0.0-0.5 [facility] Comment on above: Performed By: #### P OCGLUC #### [facility] [address] [place] [address] [address] Kasia Nath LYMPH # 1.8 103/ul Normal 1.2-3.8 [facility] Comment on above: Performed By: #### P OCGLUC #### [facility] [address] [address] [address] Kasia Nath Lymphocytes/100 WBC (Bld) 22.8 % Normal 20.5-60.0 [facility] Comment on above: Performed By: #### P OCGLUC #### [facility] [address] [place] [address] Dr. Kasia Nath MANUAL DIFF REQ NO Normal [facility] Comment on above: Performed By: #### P OCGLUC #### [facility] [address] [place] [address] Dr. Kasia Nath MCH (RBC) [Entitic mass] 29.4 pg Normal 26.7-34.0 [facility] Comment on above: Performed By: #### P OCGLUC #### [facility] [address] [place] [address] Dr. Kasia Nath MCHC (RBC) [Mass/Vol] 33.4 g/dL Normal 29.9-35.2 [facility] Comment on above: Performed By: #### P OCGLUC #### [facility] [address] [place] [address] Dr. Kasia Nath MCV (RBC) [Entitic vol] 88.0 fL Normal 81.0-99.0 [facility] Comment on above: Performed By: #### P OCGLUC #### [facility] [address] [place] [address] Dr. Kasia Nath MONO # 0.7 103/ul Normal 0.3-0.8 [facility] Comment on above: Performed By: #### P OCGLUC #### [facility] [address] [address] [address] Kasia Ntah Monocytes/100 WBC (Bld) 9.3 % Normal 1.7-12.0 [facility] Comment on above: Performed By: #### P OCGLUC #### [facility] [address] [address] [address] Kasia Nath NEUT # 5.1 103/ul Normal 1.4-6.5 [facility] Comment on above: Performed By: #### P OCGLUC #### [facility] [address] [address] [address] Kasia Nath Neutrophils/100 WBC (Bld) 64.4 % Normal 43.0-75.0 [facility] Comment on above: Performed By: #### P OCGLUC #### [facility] [address] [place] [address] Dr. Kasia Nath Platelet mean volume (Bld) [Entitic vol] 11.7 fL Normal 9.5-13.5 [facility] Comment on above: Performed By: #### P OCGLUC #### [facility] [address] [place] [address] Dr. Kasia Nath PLT 175 103/ul Normal 150-450 [facility] Comment on above: Performed By: #### P OCGLUC #### [facility] [address] [place] [address] Dr. Kasia Nath RBC 4.08 106/ul Critically low 4.20-5.40 [facility] Comment on above: Performed By: #### P OCGLUC #### [facility] [address] [place] [address] Dr. Kasia Nath WBC 7.9 103/ul Normal 4.0-11.0 [facility] Comment on above: Performed By: #### P OCGLUC #### [facility] [address] [place] [address] Dr. Kasia Nath LIPASEon 02-14-2023 Lipase [Catalytic activity/Vol] 51.0 U/L Critically low 73.0-393.0 [facility] Comment on above: Performed By: #### L IPA, CMP ####[facility] [address] [place] [address]Dr. Kasia Nath PROF 14(COMP METB)on 023 Albumin [Mass/Vol] 2.8 g/dL Critically low 3.4-5.0 [facility] Comment on above: Performed By: #### L IPA, CMP ####[facility] [id number] [place] [address]Dr. Kasia Nath Albumin/Globulin [Mass ratio] 0.7 {ratio} Normal [facility] Comment on above: Performed By: #### L IPA, CMP ####[facility] [id number] [place] [address]Dr. Kasia Nath ALP [Catalytic activity/Vol] 90 U/L Normal 46-116 [facility] Comment on above: Performed By: #### L IPA, CMP ####[facility] [address] [place] [address]Dr. Kasia Nath ALT [Catalytic activity/Vol] 15 U/L Normal 14-59 [facility] Comment on above: Performed By: #### L IPA, CMP ####[facility] [address] [place] [address]Dr. Kasia Nath Anion gap [Moles/Vol] 15.6 mmol/L Normal [facility] Comment on above: Performed By: #### L IPA, CMP ####[facility] [address] [place] [address]Dr. Kasia Nath AST [Catalytic activity/Vol] 9 U/L Critically low 15-37 [facility] Comment on above: Performed By: #### L IPA, CMP ####[facility] [address] [place] [address]Dr. Kasia Nath Bilirubin [Mass/Vol] 0.4 mg/dL Normal 0.2-1.0 [facility] Comment on above: Performed By: #### L IPA, CMP ####[facility] [address] [place] [address]Dr. Kasia Nath Calcium [Mass/Vol] 9.1 mg/dL Normal 8.5-10.1 [facility] Comment on above: Performed By: #### L IPA, CMP ####[facility] [id number] [place], [place] [address]Dr. Kasia Nath Chloride [Moles/Vol] 104 mmol/L Normal 98-107 [facility] Comment on above: Performed By: #### L IPA, CMP ####[facility] [address] [place], [place] [address]Dr. Kasia Nath CO2 [Moles/Vol] 17.0 mmol/L Critically low 21.0-32.0 [facility] Comment on above: Performed By: #### L IPA, CMP ####[facility] [address]thjvt[address] [place], [place] [address]Dr. Kasia Nath Creatinine [Mass/Vol] 1.78 mg/dL Critically high 0.55-1.02 [facility] Comment on above: Performed By: #### L IPA, CMP ####[facility] [address]igzw[address] [place], [place] [address]Dr. Kasia Nath EGFR-AF GUATEMALAN 34 mL/min/1.73m2 Critically low >=60 [facility] Comment on above: Performed By: #### L IPA, CMP ####[facility] Vdxs[address] [place], [place] [address]Dr. Kasia Nath EGFR-NON AF GUATEMALAN 28 mL/min/1.73m2 Critically low >=60 [facility] Comment on above: Performed By: #### L IPA, CMP ####[facility] Icigsriw[address] [place], [place] [address]Dr. Kasia Nath Globulin (S) [Mass/Vol] 4.3 g/dL Normal [facility] Comment on above: Performed By: #### L IPA, CMP ####[facility] Rmxhknfcgt[address] [place], [place] [address]Dr. Kasia Nath Glucose [Mass/Vol] 248 mg/dL Critically high 74-106 T [facility] Comment on above: Performed By: #### L IPA, CMP ####[facility] Hweqlgqkpr[address] [place], [place] [address]Dr. Kasia Nath Potassium [Moles/Vol] 4.6 mmol/L Normal 3.5-5.1 [facility] Comment on above: Performed By: #### L IPA, CMP ####[facility] Inaxfs[address]jo[address] [place], [place] [address]Dr. Kasia Nath Protein [Mass/Vol] 7.1 g/dL Normal 6.4-8.[address] [facility] Comment on above: Performed By: #### L IPA, CMP ####[facility] Vgloymp[address] [place], [place] [address]Dr. Kasia Portillo Sodium [Moles/Vol] 132 mmol/L Critically low 136-145 Th [facility] Comment on above: Performed By: #### L IPA, CMP ####[facility] Igpjffjric[address] [place], [place] [address]Dr. Kasia Portillo Urea nitrogen [Mass/Vol] 78.0 mg/dL Critically high 7.0-18.0 [facility] Comment on above: Performed By: #### L IPA, CMP ####[facility] Yikzqncm[address] [place], [place] [address]Dr. Fartuncristy Nath Urea nitrogen/Creatinine [Mass ratio] 43.8 mg/mg Normal [facility] Comment on above: Performed By: #### L IPA, CMP ####[facility] Hxxz[address] [place], [place] [address]Dr. Kasia Portillo CBC AUTO DIFFon 02-13-2023 BASO # 0.0 103/ul Normal 0.0-0.1 [facility] Comment on above: Performed By: #### C BC ####[facility] Lpt[address]tyj[address] [place], [place] [address]Dr. Kasia Nath Basophils/100 WBC (Bld) 0.5 % Normal 0.2-2.0 [facility] Comment on above: Performed By: #### C BC ####[facility] Dlgxpoxwxw[address] [place], [place] [address]Dr. Kasia Nath EO # 0.1 103/ul Normal 0.0-0.7 [facility] Comment on above: Performed By: #### C BC ####[facility] [address] [place] [id number]. Kasia Nath Eosinophils/100 WBC (Bld) 1.0 % Normal 0.9-7.0 [facility] Comment on above: Performed By: #### C BC ####[facility] [address]eoqxiiedl[address] [place] [id number]. Kasia Nath Erythrocyte distribution width (RBC) [Ratio] 12.8 % Normal 11.0-15.0 [facility] Comment on above: Performed By: #### C BC ####[facility] Hedpnopacs[address] [place], [place] [address]Dr. Kasia Nath Hematocrit (Bld) [Volume fraction] 38.5 % Normal 36.0-48.0 [facility] Comment on above: Performed By: #### C BC ####[facility] Nwhc[address] [place], [place] [address]Dr. Kasia Nath Hemoglobin (Bld) [Mass/Vol] 13.0 g/dL Normal 12.0-16.0 [facility] Comment on above: Performed By: #### C BC ####[facility] [address] [place] [address]Dr. Kasia Nath IG # 0.02 10e3/ul Normal 0.00-0.03 [facility] Comment on above: Performed By: #### C BC ####[facility] Gxxq[address]axfi[address] [place] [address]Dr. Kasia Nath IG % 0.2 % Normal 0.0-0.5 [facility] Comment on above: Performed By: #### C BC ####[facility] [address]azff[address] [place] [id number]. Kasia Nath LYMPH # 0.9 103/ul Critically low 1.2-3.8 [facility] Comment on above: Performed By: #### C BC ####[facility] Domvsg[address] [place], [place] [address]Dr. Kasia Nath Lymphocytes/100 WBC (Bld) 10.0 % Critically low 20.5-60.0 [facility] Comment on above: Performed By: #### C BC ####[facility] Losb[address]hw[address] [place] [id number]. Kasia Nath MANUAL DIFF REQ NO Normal [facility] Comment on above: Performed By: #### C BC ####[facility] Z[address]spdf[address] [place] [id number]. Kasia Nath MCH (RBC) [Entitic mass] 29.5 pg Normal 26.7-34.0 [facility] Comment on above: Performed By: #### C BC ####[facility] [address]qpf[address]hc[address] [place] [id number]. Kasia Nath MCHC (RBC) [Mass/Vol] 33.8 g/dL Normal 29.9-35.2 [facility] Comment on above: Performed By: #### C BC ####[facility] T[address] [place] [id number]. Kasia Nath MCV (RBC) [Entitic vol] 87.5 fL Normal 81.0-99.0 [facility] Comment on above: Performed By: #### C BC ####[facility] [address]izyc[address] [place] [id number]. Kasia Nath MONO # 0.5 103/ul Normal 0.3-0.8 [facility] Comment on above: Performed By: #### C BC ####[facility] [address]ugx[address] [place] [id number]. Kasia Portillo Monocytes/100 WBC (Bld) 5.7 % Normal 1.7-12.0 [facility] Comment on above: Performed By: #### C BC ####[facility] [address] [place] [id number]. Kasia Nath NEUT # 7.2 103/ul Critically high 1.4-6.5 [facility] Comment on above: Performed By: #### C BC ####[facility] Sh[address] [place], [place] [id number]. Kasia Portillo Neutrophils/100 WBC (Bld) 82.6 % Critically high 43.0-75.0 [facility] Comment on above: Performed By: #### C BC ####[facility] [address] [place], [place] [address]Tj. Kasia Nath Platelet mean volume (Bld) [Entitic vol] 11.8 fL Normal 9.5-13.5 [facility] Comment on above: Performed By: #### C BC ####[facility] [address] [place], [place] [address]Bb. Kasia Nath PLT 187 103/ul Normal 150-450 [facility] Comment on above: Performed By: #### C BC ####[facility] L[address] [place], [place] [address]Hi. Kasia Nath RBC 4.40 106/ul Normal 4.20-5.40 [facility] Comment on above: Performed By: #### C BC ####[facility] [address] [place], [place] [address]Qt. Kasia Nath WBC 8.8 103/ul Normal 4.0-11.0 [facility] Comment on above: Performed By: #### C BC ####[facility] V[address] [place], [place] [address]Oz. Kasia Nath CT ABD/PELVIS WO CONon 02-13 [...] Spleen: Unremarkable. Adrenal Glands: Unremarkable. Kidneys: Unremarkable. Gastrointestinal/Periton eum: No acute abnormality. Postoperative changes present of [...] JACOB MCCURDY Date: 2023-02-13 14:40 Normal [facility] CULTURE URINEon 02-13-2023 CULTURE URINE Culture Observations : LIGHT GROWTH OF MIXED GENITAL VON. NO POTENTIAL PATHOGENS SEEN. Normal [facility] Comment on above: Performed By: #### U RCX ####[facility] I[address] [place], [place] [address]EfDr. Kasia Nath Covid-19 PCR ([facility])on SARS-CoV-2 (COVID-19) RNA FERN+probe Ql (Unsp spec) Not detected Normal NOT DETECTED [facility] Comment on above: Result Comment: When [...] for this test is supported by the [place] of [employer] and Human Service's declaration that [...] used). Performed By: #### P OCGLUC #### [facility] [address] [place], [place] [address] Dr. Kasia Nath GI PANEL (PCR)on 02-13-2023 Adenovirus F 40/41 Not detected Normal NOT DETECTED [facility] Comment on above: Performed By: #### C BC #### [facility] [address] [place] [address] Dr. Kasia Nath Astrovirus Not detected Normal NOT DETECTED [facility] Comment on above: Performed By: #### C BC #### [facility] [address] [place] [address] Dr. Kasia Del Real. Diff toxin A/B Not detected Normal NOT DETECTED [facility] Comment on above: Performed By: #### C BC #### [facility] [address] [place] [address] Dr. Kasia Nath Campylobacter Not detected Normal NOT DETECTED [facility] Comment on above: Performed By: #### C BC #### [facility] [address] [place] [address] Dr. Kasia Nath Cryptosporidium Not detected Normal NOT DETECTED [facility] Comment on above: Performed By: #### C BC #### [facility] [address] [place] [address] Dr. Kasia Nath Cyclos. Cayetanensis Not detected Normal NOT DETECTED [facility] Comment on above: Performed By: #### C BC #### [facility] [address] [place] [address] Dr. Kasia Nath E. Coli O157 Not Applicable Normal Not Applicable [facility] Comment on above: Performed By: #### C BC #### [facility] [address] [place] [address] Dr. Kasia Nath E. histolytica Not detected Normal NOT DETECTED [facility] Comment on above: Performed By: #### C BC #### [facility] [address] [place] [address] Dr. Kasia Nath EAEC Not detected Normal NOT DETECTED [facility] Comment on above: Performed By: #### C BC #### [facility] [address] [place] [address] Dr. Kasia Nath EIEC Not detected Normal NOT DETECTED [facility] Comment on above: Performed By: #### C BC #### [facility] [address] [place] [address] Dr. Kasia Nath EPEC Not detected Normal NOT DETECTED [facility] Comment on above: Performed By: #### C BC #### [facility] [address] [place] [address] [address] Kasia Nath ETEC Not detected Normal NOT DETECTED [facility] Comment on above: Performed By: #### C BC #### [facility] [address] [place] [address] [address] Kasia Terrazas Lamblia Not detected Normal NOT DETECTED [facility] Comment on above: Performed By: #### C BC #### [facility] [address] [place] [address] [address] Kasia KHAN CONTROLS PASSED Normal [facility] Comment on above: Performed By: #### C BC #### [facility] [address] [place] [address] [address] Kasia FRAIRE HEADER GI PANEL BACTERIA Normal T [facility] Comment on above: Performed By: #### C BC #### [facility] [address] [place] [address] [address] Kasia GE ECOLI GI PANEL DIARRHEAGEN IC E.COLI / SHIGELLA Normal [facility] Comment on above: Performed By: #### C BC #### [facility] [address] [place] [address] Dr. Kasia GE INFO SEE BELOW Normal [facility] Comment on above: Result Comment: EAEC - Enteroaggregative E. Coli EPEC- Enteropathogenic E. Coli ETEC- Enterotoxigenic E. Coli lt/st STEC- Shigella-like toxin-producing E. Coli stx1/stx2 EIEC- Shigella/Enteroinvasive E. Coli Performed By: #### C BC #### [facility] [address] [place] [address] Dr. Kasia GE PARASITES GI PANEL PARASITES Normal [facility] Comment on above: Performed By: #### C BC #### [facility] [address] [place] [address] [address] Kasia GE VIRUS GI PANEL VIRUSES Normal [facility] Comment on above: Performed By: #### C BC #### [facility] [address] [place] [address] Dr. Kasia Nath Norovirus GI/GII Not detected Normal NOT DETECTED [facility] Comment on above: Performed By: #### C BC #### [facility] [address] [place] [address] Dr. Kasia Nath P. Shigelloides Not detected Normal NOT DETECTED [facility] Comment on above: Performed By: #### C BC #### [facility] [address] [place] [address] Dr. Kasia Nath Rotavirus A Not detected Normal NOT DETECTED [facility] Comment on above: Performed By: #### C BC #### [facility] [address] [place] [address] Dr. Kasia Nath Salmonella Not detected Normal NOT DETECTED [facility] Comment on above: Performed By: #### C BC #### [facility] [address] [place] [address] Dr. Kasia Nath Sapovirus Not detected Normal NOT DETECTED [facility] Comment on above: Performed By: #### C BC #### [facility] [address] [place] [address] Dr. Kasia Nath STEC Not detected Normal NOT DETECTED [facility] Comment on above: Performed By: #### C BC #### [facility] [address] [place] [address] Dr. Kasia Nath Vibrio Not detected Normal NOT DETECTED [facility] Comment on above: Performed By: #### C BC #### [facility] [address] [place] [address] Dr. Kasia Nath Vibrio Cholera Not detected Normal NOT DETECTED [facility] Comment on above: Performed By: #### C BC #### [facility] [address] [place] [address] Dr. Kasia Nath Y. Enterocolitica Not detected Normal NOT DETECTED [facility] Comment on above: Performed By: #### C BC #### [facility] [address] [place] [address] Dr. Kasia Nath LACTATE/LACTIC ACIDon 2022 Lactate [Moles/Vol] 1.7 mmol/L Normal 0.4-2.0 [facility] Comment on above: Performed By: #### L ACT ####[facility] [address] [place] [address]Dr. Kasia Nath LIPASEon 02-13-2023 Lipase [Catalytic activity/Vol] 82.0 U/L Normal 73.0-393.0 [facility] Comment on above: Performed By: #### L IPA, CMP #### [facility] [address] [place] [address] [address] Kasia Nath POINT OF CARE GLUCOSEon Glucose [Mass/Vol] 229 mg/dL Critically high 74-106 [facility] Comment on above: Performed By: #### P OCGLUC #### [facility] [address] [place] [address] Dr. Kasia Nath Glucose [Mass/Vol] 474 mg/dL Critically high 74-106 [facility] Comment on above: Performed By: #### P OCGLUC #### [facility] [address] [place] [address] Dr. Kasia Nath PROF 14(COMP METB)on 023 Albumin [Mass/Vol] 3.4 g/dL Normal 3.4-5.[address] [facility] Comment on above: Performed By: #### L IPA, CMP #### [facility] [address] [place] [address] Dr. Kasia Nath Albumin/Globulin [Mass ratio] 0.7 {ratio} Normal [facility] Comment on above: Performed By: #### L IPA, CMP #### [facility] [address] [place] [address] Dr. Kasia Nath ALP [Catalytic activity/Vol] 106 U/L Normal 46-116 [facility] Comment on above: Performed By: #### L IPA, CMP #### [facility] [address] [place] [address] Dr. Kasia Nath ALT [Catalytic activity/Vol] 21 U/L Normal 14-59 [facility] Comment on above: Performed By: #### L IPA, CMP #### [facility] [address] [place] [address] [address] Kasia Nath Anion gap [Moles/Vol] 17.7 mmol/L Normal Th [facility] Comment on above: Performed By: #### L IPA, CMP #### [facility] [address] [place] [address] [address] Kasia Nath AST [Catalytic activity/Vol] 11 U/L Critically low 15-37 [facility] Comment on above: Performed By: #### L IPA, CMP #### [facility] [address] [place] [address] [address] Kasia Nath Bilirubin [Mass/Vol] 0.5 mg/dL Normal 0.2-1.0 [facility] Comment on above: Performed By: #### L IPA, CMP #### [facility] [address] [place] [address] [address] Kasia Nath Calcium [Mass/Vol] 9.6 mg/dL Normal 8.5-10.[address] [facility] Comment on above: Performed By: #### L IPA, CMP #### [facility] [address] [place] [address] [address] Kasia Nath Chloride [Moles/Vol] 99 mmol/L Normal 98-107 [facility] Comment on above: Performed By: #### L IPA, CMP #### [facility] [address] [place] [address] [address] Kasia Nath CO2 [Moles/Vol] 20.6 mmol/L Critically low 21.0-32.0 [facility] Comment on above: Performed By: #### L IPA, CMP #### [facility] [address] [place] [address] [address] Kasia Nath Creatinine [Mass/Vol] 2.14 mg/dL Critically high 0.55-1.02 [facility] Comment on above: Performed By: #### L IPA, CMP #### [facility] [address] [place] [address] [address] Kasia Nath EGFR-AF GUATEMALAN 27 mL/min/1.73m2 Critically low >=60 [facility] Comment on above: Performed By: #### L IPA, CMP #### [facility] [address] [place] [address] [address] Kasia Nath EGFR-NON AF GUATEMALAN 22 mL/min/1.73m2 Critically low >=60 [facility] Comment on above: Performed By: #### L IPA, CMP #### [facility] [address] [place] [address] [address] Kasia Nath Globulin (S) [Mass/Vol] 4.8 g/dL Normal [facility] Comment on above: Performed By: #### L IPA, CMP #### [facility] [address] [place] [address] [address] Kasia Nath Glucose [Mass/Vol] 498 mg/dL Critically high 74-106 T [facility] Comment on above: Performed By: #### L IPA, CMP #### [facility] [address] [place] [address] [address] Kasia Nath Potassium [Moles/Vol] 5.3 mmol/L Critically high 3.5-5.1 [facility] Comment on above: Performed By: #### L IPA, CMP #### [facility] [address] [place] [address] [address] Kasia Nath Protein [Mass/Vol] 8.2 g/dL Normal 6.4-8.[address] [facility] Comment on above: Performed By: #### L IPA, CMP #### [facility] [address] [place] [address] [address] Kasia Nath Sodium [Moles/Vol] 132 mmol/L Critically low 136-145 Th [facility] Comment on above: Performed By: #### L IPA, CMP #### [facility] [address] [place] [address] [address] Kasia Nath Urea nitrogen [Mass/Vol] 86.0 mg/dL Critically high 7.0-18.0 [facility] Comment on above: Performed By: #### L IPA, CMP #### [facility] [address] [place] [address] [address] Kasia Nath Urea nitrogen/Creatinine [Mass ratio] 40.2 mg/mg Normal [facility] Comment on above: Performed By: #### L IPA, CMP #### [facility] [address] [place] [address] [address] Kasia Nath UA RANDOM W/MICROSCOPICon BACTERIA TRACE Abnormal NONE SEEN [facility] Comment on above: Performed By: #### U AMIC ####[facility] [address] [place] [address]Dr. Kasia Nath Bilirubin Ql (U) Negative Normal NEGATIVE [facility] Comment on above: Performed By: #### U AMIC ####[facility] [address] [place] [address]Dr. Kasia Nath CAST SEEN Abnormal NONE SEEN [facility] Comment on above: Performed By: #### U AMIC ####[facility] [address] [place] [address]Dr. Kasia Nath Clarity (U) CLEAR Normal CLEAR [facility] Comment on above: Performed By: #### U AMIC ####[facility] [address] [place] [address]Dr. Kaisa Nath Color (U) LT. YELLOW Normal YELLOW [facility] Comment on above: Performed By: #### U AMIC ####[facility] [address] [place] [address]Dr. Kasia Nath Crystals LM Nom (Urine sed) NONE SEEN Normal NONE SEEN [facility] Comment on above: Performed By: #### U AMIC ####[facility] [address] [place] [address]Dr. Kasia Nath Epithelial cells LM Ql (Urine sed) FEW Abnormal NONE SEEN /RARE [facility] Comment on above: Performed By: #### U AMIC ####[facility] [address] [place] [address]Dr. Kasia Nath Glucose Ql (U) >1000 Abnormal NEGATIVE [facility] Comment on above: Performed By: #### U AMIC ####[facility] [address] [place] [address]Dr. Kasia Nath Hemoglobin Ql (U) Negative Normal NEGATIVE [facility] Comment on above: Performed By: #### U AMIC ####[facility] [address] [place] [address]Dr. Kasia Nath HYALINE CAST RARE Normal [facility] Comment on above: Performed By: #### U AMIC ####[facility] [address] [place] [address]Dr. Kasia Nath Ketones Ql (U) Negative Normal NEGATIVE [facility] Comment on above: Performed By: #### U AMIC ####[facility] [address] [place] [address]Dr. Kasia Nath LEUKOCYTES Negative Normal NEGATIVE [facility] Comment on above: Performed By: #### U AMIC ####[facility] [address] [place] [address]Dr. Kasia Nath MUCOUS NONE SEEN Normal NONE SEEN [facility] Comment on above: Performed By: #### U AMIC ####[facility] [address] [place] [address]Dr. Kasia Nath Nitrite Ql (U) Negative Normal NEGATIVE [facility] Comment on above: Performed By: #### U AMIC ####[facility] [address] [place], [place] [address]Dr. Kasia Nath pH (U) 5.5 [pH] Normal 5-9 [facility] Comment on above: Performed By: #### U AMIC ####[facility] [address] [place] [address]Dr. Kasia Nath RBC 0-2 Normal 0-2 [facility] Comment on above: Performed By: #### U AMIC ####[facility] [address] [place] [address]Dr. Kasia Nath SPEC GRAVITY 1.015 Normal 1.005-<=1.0 25 [facility] Comment on above: Performed By: #### U AMIC ####[facility] [address] [place] [address]Dr. Kasia Nath UA PROTEIN TRACE Normal NEGATIVE/ TRACE [facility] Comment on above: Performed By: #### U AMIC ####[facility] [address] [place] [address]Dr. Kasia Nath Urobilinogen Qn (U) 0.2 {[place]'U}/dL Normal 0.2 - 1. 0 [facility] Comment on above: Performed By: #### U AMIC ####[facility] [address] [place] [address]Dr. Kasia Nath WBC 0-2 Abnormal NONE SEEN [facility] Comment on above: Performed By: #### U AMIC ####[facility] [address] [place] [address]Dr. Kasia Nath BNPon 01-16-2023 Natriuretic peptide B (Bld) [Mass/Vol] 1675.0 pg/mL Normal <=1,800.0 [facility] Comment on above: Performed By: #### B FIELD CONTACT TECHNICIAN, CMP ####[facility] [id number] [place], [place] [address]Dr. Kasia Nath PROF 14(COMP METB)on 023 Albumin [Mass/Vol] 3.4 g/dL Normal 3.4-5.[address] [facility] Comment on above: Performed By: #### B FIELD CONTACT TECHNICIAN, CMP ####[facility] [address] [place], [place] [address]Dr. Kasia Nath Albumin/Globulin [Mass ratio] 0.8 {ratio} Normal [facility] Comment on above: Performed By: #### B FIELD CONTACT TECHNICIAN, CMP ####[facility] [address] [place], [place] [address]Dr. Kasia Nath ALP [Catalytic activity/Vol] 99 U/L Normal 46-116 [facility] Comment on above: Performed By: #### B FIELD CONTACT TECHNICIAN, CMP ####[facility] [address] [place], [place] [address]Dr. Kasia Nath ALT [Catalytic activity/Vol] 18 U/L Normal 14-59 [facility] Comment on above: Performed By: #### B FIELD CONTACT TECHNICIAN, CMP ####[facility] [address] [place], [place] [address]Dr. Kasia Nath Anion gap [Moles/Vol] 10.6 mmol/L Normal [facility] Comment on above: Performed By: #### B FIELD CONTACT TECHNICIAN, CMP ####[facility] [id number] [place], [place] [address]Dr. Kasia Portillo AST [Catalytic activity/Vol] 15 U/L Normal 15-37 [facility] Comment on above: Performed By: #### B FIELD CONTACT TECHNICIAN, CMP ####[facility] C[address] [place], [place] [address]Dr. Fartuncristy Portillo Bilirubin [Mass/Vol] 0.5 mg/dL Normal 0.2-1.0 [facility] Comment on above: Performed By: #### B FIELD CONTACT TECHNICIAN, CMP ####[facility] V[address] [place], [place] [address]Dr. Kasia Nath Calcium [Mass/Vol] 9.1 mg/dL Normal 8.5-10.[address] [facility] Comment on above: Performed By: #### B FIELD CONTACT TECHNICIAN, CMP ####[facility] Im[address] [place], [place] [address]Dr. Kasia Nath Chloride [Moles/Vol] 98 mmol/L Normal 98-107 [facility] Comment on above: Performed By: #### B FIELD CONTACT TECHNICIAN, CMP ####[facility] [address] [place], [place] [address]Dr. Kasia Nath CO2 [Moles/Vol] 30.4 mmol/L Normal 21.0-32.0 [facility] Comment on above: Performed By: #### B FIELD CONTACT TECHNICIAN, CMP ####[facility] [address] [place], [place] [address]Dr. Kasia Nath Creatinine [Mass/Vol] 1.44 mg/dL Critically high 0.55-1.02 [facility] Comment on above: Performed By: #### B FIELD CONTACT TECHNICIAN, CMP ####[facility] [address] [place], [place] [address]Dr. Kasia Nath EGFR-AF GUATEMALAN 43 mL/min/1.73m2 Critically low >=60 [facility] Comment on above: Performed By: #### B FIELD CONTACT TECHNICIAN, CMP ####[facility] [address] [place], [place] [address]Dr. Kasia Nath EGFR-NON AF GUATEMALAN 35 mL/min/1.73m2 Critically low >=60 [facility] Comment on above: Performed By: #### B FIELD CONTACT TECHNICIAN, CMP ####[facility] [address] [address]Dr. Kasia Nath Globulin (S) [Mass/Vol] 4.4 g/dL Normal [facility] Comment on above: Performed By: #### B FIELD CONTACT TECHNICIAN, CMP ####[facility] [address] [place], [place] [address]Dr. Kasia Nath Glucose [Mass/Vol] 401 mg/dL Critically high 74-106 T [facility] Comment on above: Performed By: #### B FIELD CONTACT TECHNICIAN, CMP ####[facility] [address] [place], [place] [address]Dr. Kasia Nath Potassium [Moles/Vol] 5.0 mmol/L Normal 3.5-5.1 [facility] Comment on above: Performed By: #### B FIELD CONTACT TECHNICIAN, CMP ####[facility] [address] [place], [place] [address]Dr. Kasia Nath Protein [Mass/Vol] 7.8 g/dL Normal 6.4-8.[address] [facility] Comment on above: Performed By: #### B FIELD CONTACT TECHNICIAN, CMP ####[facility] [address] [place], [place] [address]Dr. Kasia Nath Sodium [Moles/Vol] 134 mmol/L Critically low 136-145 Th [facility] Comment on above: Performed By: #### B FIELD CONTACT TECHNICIAN, CMP ####[facility] [address] [place], [place] [address]Dr. Kasia Nath Urea nitrogen [Mass/Vol] 46.0 mg/dL Critically high 7.0-18.0 [facility] Comment on above: Performed By: #### B FIELD CONTACT TECHNICIAN, CMP ####[facility] Jr[address] [place], [place] [address]Dr. Kasia Nath Urea nitrogen/Creatinine [Mass ratio] 31.9 mg/mg Normal [facility] Comment on above: Performed By: #### B FIELD CONTACT TECHNICIAN, CMP ####[facility] [address] [place] [id number]. Kasia Nath BNPon 01-05-2023 Natriuretic peptide B (Bld) [Mass/Vol] 1389.0 pg/mL Normal <=1,800.0 [facility] Comment on above: Performed By: #### B FIELD CONTACT TECHNICIAN, CMADM, CMP ####[facility] [address] [address]Dr. Kasia Nath CARDIAC EMERY ADMITon 023 CK [Catalytic activity/Vol] 138 U/L Normal 26-192 [facility] Comment on above: Performed By: #### B FIELD CONTACT TECHNICIAN, CMADM, CMP ####[facility] [address] [address]Dr. Kasia Nath CK.MB [Mass/Vol] 2.22 ng/mL Normal <=3.60 [facility] Comment on above: Performed By: #### B FIELD CONTACT TECHNICIAN, CMADM, CMP ####[facility] [address] [address]Dr. Kasia Nath HSTROP 15.9 pg/mL Normal 4.0-51.3 [facility] Comment on above: Result Comment: CUT- OFF POINTS HAVE BEEN ESTABLISHED BASED ON THE FOURTH UNIVERSAL DEFINITIONS OF MYOCARDIAL INFARCTION. THE UPPER REFERENCE LIMIT (URL) OF TROPONIN, DEFINED THE 99TH PERCENTILE OF cTnI DISTRIBUTION IN A REFERENCE POPULATION, HAS BEEN CONFIRMED THE DECISION THRESHOLD FOR [place] DIAGNOSIS. Performed By: #### B FIELD CONTACT TECHNICIAN, CMADM, CMP ####[facility] [address] [place] [address]DrDoreen Nath GRETTA 178 ng/mL Critically high 9-82 [facility] Comment on above: Performed By: #### B FIELD CONTACT TECHNICIAN, CMADM, CMP ####[facility] [address] [place] [id number]. Kasia Nath CBC AUTO DIFFon 01-05-2023 BASO # 0.1 103/ul Normal 0.0-0.1 [facility] Comment on above: Performed By: #### C BC #### [facility] [id number] Kasia Nath Basophils/100 WBC (Bld) 0.7 % Normal 0.2-2.0 [facility] Comment on above: Performed By: #### C BC #### [facility] [address] [place] [address] Dr. aKsia Nath EO # 0.3 103/ul Normal 0.0-0.7 [facility] Comment on above: Performed By: #### C BC #### [facility] [address] [place] [address] Dr. Kasia Nath Eosinophils/100 WBC (Bld) 2.9 % Normal 0.9-7.0 [facility] Comment on above: Performed By: #### C BC #### [facility] [address] [place] [address] Dr. Kasia Nath Erythrocyte distribution width (RBC) [Ratio] 13.5 % Normal 11.0-15.0 [facility] Comment on above: Performed By: #### C BC #### [facility] [address] [place] [address] Dr. Kasia Nath Hematocrit (Bld) [Volume fraction] 39.8 % Normal 36.0-48.0 [facility] Comment on above: Performed By: #### C BC #### [facility] [address] [place] [address] Dr. Kasia Nath Hemoglobin (Bld) [Mass/Vol] 13.5 g/dL Normal 12.0-16.0 [facility] Comment on above: Performed By: #### C BC #### [facility] [address] [place] [address] Dr. Kasia Nath IG # 0.02 10e3/ul Normal 0.00-0.03 [facility] Comment on above: Performed By: #### C BC #### [facility] [address] [place] [address] Dr. Kasia Nath IG % 0.2 % Normal 0.0-0.5 [facility] Comment on above: Performed By: #### C BC #### [facility] [address] [place] [address] Dr. Kasia Nath LYMPH # 1.9 103/ul Normal 1.2-3.8 [facility] Comment on above: Performed By: #### C BC #### [facility] [address] [place] [address] Dr. Kasia Nath Lymphocytes/100 WBC (Bld) 22.0 % Normal 20.5-60.0 [facility] Comment on above: Performed By: #### C BC #### [facility] [address] [place] [address] Dr. Kasia Nath MANUAL DIFF REQ NO Normal [facility] Comment on above: Performed By: #### C BC #### [facility] [address] [place] [address] Dr. Kasia Nath MCH (RBC) [Entitic mass] 29.8 pg Normal 26.7-34.0 [facility] Comment on above: Performed By: #### C BC #### [facility] [address] [place] [address] Dr. Kasia Nath MCHC (RBC) [Mass/Vol] 33.9 g/dL Normal 29.9-35.2 [facility] Comment on above: Performed By: #### C BC #### [facility] [address] [place] [address] Dr. Kasia Nath MCV (RBC) [Entitic vol] 87.9 fL Normal 81.0-99.0 [facility] Comment on above: Performed By: #### C BC #### [facility] [address] [place] [address] Dr. Kasia Nath MONO # 0.8 103/ul Normal 0.3-0.8 [facility] Comment on above: Performed By: #### C BC #### [facility] [address] [place] [address] Dr. Kasia Nath Monocytes/100 WBC (Bld) 8.8 % Normal 1.7-12.0 [facility] Comment on above: Performed By: #### C BC #### [facility] [address] [place] [address] Dr. Kasia Nath NEUT # 5.6 103/ul Normal 1.4-6.5 [facility] Comment on above: Performed By: #### C BC #### [facility] [address] [address] [address] Kasia Nath Neutrophils/100 WBC (Bld) 65.4 % Normal 43.0-75.0 [facility] Comment on above: Performed By: #### C BC #### [facility] [address] [address] [address] Kasia Nath Platelet mean volume (Bld) [Entitic vol] 10.6 fL Normal 9.5-13.5 [facility] Comment on above: Performed By: #### C BC #### [facility] [address] [address] [address] Kasia Nath PLT 222 103/ul Normal 150-450 [facility] Comment on above: Performed By: #### C BC #### [facility] [address] [address] [address] Kasia Nath RBC 4.53 106/ul Normal 4.20-5.40 [facility] Comment on above: Performed By: #### C BC #### [facility] [address] [address] [address] Kasia Nath WBC 8.6 103/ul Normal 4.0-11.0 [facility] Comment on above: Performed By: #### C BC #### [facility] [address] [place] [address] Dr. Kasia Nath PROF 14(COMP METB)on 023 Albumin [Mass/Vol] 3.3 g/dL Critically low 3.4-5.0 [facility] Comment on above: Performed By: #### B FIELD CONTACT TECHNICIAN, CMADM, CMP #### [facility] [address] [address] [address] Kasia Nath Albumin/Globulin [Mass ratio] 0.7 {ratio} Normal [facility] Comment on above: Performed By: #### B FIELD CONTACT TECHNICIAN, CMADM, CMP #### [facility] [address] [address] [address] Kasia Nath ALP [Catalytic activity/Vol] 106 U/L Normal 46-116 [facility] Comment on above: Performed By: #### B FIELD CONTACT TECHNICIAN, CMADM, CMP #### [facility] [address] [address] [address] Kasia Nath ALT [Catalytic activity/Vol] 22 U/L Normal 14-59 [facility] Comment on above: Performed By: #### B FIELD CONTACT TECHNICIAN, CMADM, CMP #### [facility] [address] [address] [address] Kasia Nath Anion gap [Moles/Vol] 12.0 mmol/L Normal [facility] Comment on above: Performed By: #### B FIELD CONTACT TECHNICIAN, CMADM, CMP #### [facility] [address] [place] [address] Dr. Kasia Nath AST [Catalytic activity/Vol] 23 U/L Normal 15-37 [facility] Comment on above: Performed By: #### B FIELD CONTACT TECHNICIAN, CMADM, CMP #### [facility] [address] [place] [address] Dr. Kasia Nath Bilirubin [Mass/Vol] 0.7 mg/dL Normal 0.2-1.0 [facility] Comment on above: Performed By: #### B FIELD CONTACT TECHNICIAN, CMADM, CMP #### [facility] [address] [place] [address] Dr. Kasia Nath Calcium [Mass/Vol] 8.8 mg/dL Normal 8.5-10.[address] [facility] Comment on above: Performed By: #### B FIELD CONTACT TECHNICIAN, CMADM, CMP #### [facility] [address] [address] [address] Kasia Nath Chloride [Moles/Vol] 98 mmol/L Normal 98-107 [facility] Comment on above: Performed By: #### B FIELD CONTACT TECHNICIAN, CMADM, CMP #### [facility] [address] [place] [address] Dr. Kasia Nath CO2 [Moles/Vol] 30.2 mmol/L Normal 21.0-32.0 [facility] Comment on above: Performed By: #### B FIELD CONTACT TECHNICIAN, CMADM, CMP #### [facility] [address] [place] [address] Dr. Kasia Nath Creatinine [Mass/Vol] 1.19 mg/dL Critically high 0.55-1.02 [facility] Comment on above: Performed By: #### B FIELD CONTACT TECHNICIAN, MACDM, CMP #### [facility] [address] [address] [address] Kasia Nath EGFR-AF GUATEMALAN 53 mL/min/1.73m2 Critically low >=60 [facility] Comment on above: Performed By: #### B FIELD CONTACT TECHNICIAN, CMADM, CMP #### [facility] [address] [place] [address] Dr. Kasia Nath EGFR-NON AF GUATEMALAN 44 mL/min/1.73m2 Critically low >=60 [facility] Comment on above: Performed By: #### B FIELD CONTACT TECHNICIAN, CMADM, CMP #### [facility] [address] [place] [address] Dr. Kasia Nath Globulin (S) [Mass/Vol] 4.7 g/dL Normal [facility] Comment on above: Performed By: #### B FIELD CONTACT TECHNICIAN, CMADM, CMP #### [facility] [address] [place] [address] Dr. Kasia Nath Glucose [Mass/Vol] 124 mg/dL Critically high 74-106 [facility] Comment on above: Performed By: #### B FIELD CONTACT TECHNICIAN, MACDM, CMP #### [facility] [address] [place] [address] Dr. Kasia Nath Potassium [Moles/Vol] 3.2 mmol/L Critically low 3.5-5.1 [facility] Comment on above: Performed By: #### B FIELD CONTACT TECHNICIAN, CMADM, CMP #### [facility] [address] [place] [address] Dr. Kasia Nath Protein [Mass/Vol] 8.0 g/dL Normal 6.4-8.2 [facility] Comment on above: Performed By: #### B FIELD CONTACT TECHNICIAN, CMADM, CMP #### [facility] [address] [place] [address] Dr. Kasia Nath Sodium [Moles/Vol] 137 mmol/L Normal 136-[address] [facility] Comment on above: Performed By: #### B FIELD CONTACT TECHNICIAN, CMADM, CMP #### [facility] [address] [place], [place] [address] Dr. Kasia Nath Urea nitrogen [Mass/Vol] 29.0 mg/dL Critically high 7.0-18.0 [facility] Comment on above: Performed By: #### B FIELD CONTACT TECHNICIAN, CMADM, CMP #### [facility] [address] [place], [place] [address] Dr. Kasia Nath Urea nitrogen/Creatinine [Mass ratio] 24.4 mg/mg Normal [facility] Comment on above: Performed By: #### B FIELD CONTACT TECHNICIAN, CMADM, CMP #### [facility] [address] [place], [place] [address] Dr. Kasia Nath TROPONIN, HIGH SENSITIVITYon 01-05-2023 HSTROP 18.4 pg/mL Normal 4.0-51.3 [facility] Comment on above: Result Comment: CUT- OFF POINTS HAVE BEEN ESTABLISHED BASED ON THE FOURTH UNIVERSAL DEFINITIONS OF MYOCARDIAL INFARCTION. THE UPPER REFERENCE LIMIT (URL) OF TROPONIN, DEFINED THE 99TH PERCENTILE OF cTnI DISTRIBUTION IN A REFERENCE POPULATION, HAS BEEN CONFIRMED THE DECISION THRESHOLD FOR [place] DIAGNOSIS. Performed By: #### H STROPN ####[facility] [address] [place], [place] [address]YaDr. Kasia Nath XR CHEST 1 Von 01-05-2023 [...] BIN ROJAS Date: 2023-01-05 04:39 Normal [facility] BNPon 01-02-2023 Natriuretic peptide B (Bld) [Mass/Vol] 2583.0 pg/mL Critically high <=1,800.0 [facility] Comment on above: Performed By: #### B FIELD CONTACT TECHNICIAN, CMP ####[facility] [address] [place], [place] [address]CfDr. Kasia Nath CBC AUTO DIFFon 01-02-2023 BASO # 0.1 103/ul Normal 0.0-0.1 [facility] Comment on above: Performed By: #### P OCGLUC #### [facility] [address] [address] [address] Kasia Nath Basophils/100 WBC (Bld) 0.9 % Normal 0.2-2.0 [facility] Comment on above: Performed By: #### P OCGLUC #### [facility] [address] [address] [address] Kasia Nath EO # 0.2 103/ul Normal 0.0-0.7 [facility] Comment on above: Performed By: #### P OCGLUC #### [facility] [address] [address] [address] Kasia Nath Eosinophils/100 WBC (Bld) 2.3 % Normal 0.9-7.0 [facility] Comment on above: Performed By: #### P OCGLUC #### [facility] [address] [address] [address] Kasia Nath Erythrocyte distribution width (RBC) [Ratio] 13.8 % Normal 11.0-15.0 [facility] Comment on above: Performed By: #### P OCGLUC #### [facility] [address] [address] [address] Kasia Nath Hematocrit (Bld) [Volume fraction] 35.5 % Critically low 36.0-48.0 [facility] Comment on above: Performed By: #### P OCGLUC #### [facility] [address] [address] [address] Kasia Nath Hemoglobin (Bld) [Mass/Vol] 11.6 g/dL Critically low 12.0-16.0 [facility] Comment on above: Performed By: #### P OCGLUC #### [facility] [address] [address] [address] Kasia Nath IG # 0.02 10e3/ul Normal 0.00-0.03 [facility] Comment on above: Performed By: #### P OCGLUC #### [facility] [address] [address] [address] Kasia Nath IG % 0.3 % Normal 0.0-0.5 [facility] Comment on above: Performed By: #### P OCGLUC #### [facility] [address] [address] [address] Kasia Nath LYMPH # 2.0 103/ul Normal 1.2-3.8 [facility] Comment on above: Performed By: #### P OCGLUC #### [facility] [address] [place] [address] Dr. Kasia Nath Lymphocytes/100 WBC (Bld) 24.8 % Normal 20.5-60.0 [facility] Comment on above: Performed By: #### P OCGLUC #### [facility] [address] [address] [address] Kasia Nath MANUAL DIFF REQ NO Normal [facility] Comment on above: Performed By: #### P OCGLUC #### [facility] [address] [address] [address] Kasia Nath MCH (RBC) [Entitic mass] 28.7 pg Normal 26.7-34.0 [facility] Comment on above: Performed By: #### P OCGLUC #### [facility] [address] [address] [address] Kasia Nath MCHC (RBC) [Mass/Vol] 32.7 g/dL Normal 29.9-35.2 [facility] Comment on above: Performed By: #### P OCGLUC #### [facility] [address] [place] [address] Dr. Kasia Nath MCV (RBC) [Entitic vol] 87.9 fL Normal 81.0-99.0 [facility] Comment on above: Performed By: #### P OCGLUC #### [facility] [address] [address] [address] Kasia Nath MONO # 0.8 103/ul Normal 0.3-0.8 [facility] Comment on above: Performed By: #### P OCGLUC #### [facility] [address] [address] [address] Kasia Nath Monocytes/100 WBC (Bld) 9.6 % Normal 1.7-12.0 [facility] Comment on above: Performed By: #### P OCGLUC #### [facility] [address] [address] [address] Kasia Nath NEUT # 5.0 103/ul Normal 1.4-6.5 [facility] Comment on above: Performed By: #### P OCGLUC #### [facility] [address] [address] [address] Kasia Nath Neutrophils/100 WBC (Bld) 62.1 % Normal 43.0-75.0 [facility] Comment on above: Performed By: #### P OCGLUC #### [facility] [address] [address] [address] Kasia Nath Platelet mean volume (Bld) [Entitic vol] 10.7 fL Normal 9.5-13.5 [facility] Comment on above: Performed By: #### P OCGLUC #### [facility] [address] [address] [address] Kasia Nath PLT 204 103/ul Normal 150-450 [facility] Comment on above: Performed By: #### P OCGLUC #### [facility] [address] [address] [address] Kasia Nath RBC 4.04 106/ul Critically low 4.20-5.40 [facility] Comment on above: Performed By: #### P OCGLUC #### [facility] [address] [address] [address] Kasia Nath WBC 8.0 103/ul Normal 4.0-11.0 [facility] Comment on above: Performed By: #### P OCGLUC #### [facility] [address] [address] [address] Kasia Nath GLYCOHEMOGLOBIN A1Con 2022 ADA RECOMMENDATION SEE BELOW Normal [facility] Comment on above: Result Comment: ADA RECOMMENDED LIMIT 4.0 - 6.0 ADA THERAPEUTIC TARGET < 7.0 ACTION SUGGESTED > 7.0 Performed By: #### A 1C ####[facility] [address] [place] [address]Dr. Kasia Nath Glucose [Mass/Vol] 298 mg/dL Normal [facility] Comment on above: Performed By: #### A 1C ####[facility] [address] [place] [address]Dr. Kasia Nath HbA1c (Bld) [Mass fraction] 12.0 % Critically high 4.5-6.2 [facility] Comment on above: Performed By: #### A 1C ####[facility] [address] [place], [place] [address]Dr. Kasia Nath POINT OF CARE GLUCOSEon 12-14 Glucose [Mass/Vol] 227 mg/dL Critically high 74-106 [facility] Comment on above: Performed By: #### C BC #### [facility] [address] [address] [address] Kasia Nath Glucose [Mass/Vol] 214 mg/dL Critically high 74-106 [facility] Comment on above: Performed By: #### C BC #### [facility] [address] [address] [address] Kasia Nath PROF 14(COMP METB)on 023 Albumin [Mass/Vol] 2.6 g/dL Critically low 3.4-5.0 [facility] Comment on above: Performed By: #### B FIELD CONTACT TECHNICIAN, CMP ####[facility] [address] [address]DrDoreen Nath Albumin/Globulin [Mass ratio] 0.6 {ratio} Normal [facility] Comment on above: Performed By: #### B FIELD CONTACT TECHNICIAN, CMP ####[facility] [address] [address]Dr. Kasia Nath ALP [Catalytic activity/Vol] 94 U/L Normal 46-116 [facility] Comment on above: Performed By: #### B FIELD CONTACT TECHNICIAN, CMP ####[facility] [address] [place], [place] [address]Dr. Kasia Nath ALT [Catalytic activity/Vol] 16 U/L Normal 14-59 [facility] Comment on above: Performed By: #### B FIELD CONTACT TECHNICIAN, CMP ####[facility] [address] [place], [place] [address]Dr. Kasia Nath Anion gap [Moles/Vol] 10.6 mmol/L Normal [facility] Comment on above: Performed By: #### B FIELD CONTACT TECHNICIAN, CMP ####[facility] [address] [place], [place] [address]Dr. Kasia Nath AST [Catalytic activity/Vol] 15 U/L Normal 15-37 [facility] Comment on above: Performed By: #### B FIELD CONTACT TECHNICIAN, CMP ####[facility] [address] [place], [place] [address]Dr. Kasia Nath Bilirubin [Mass/Vol] 0.8 mg/dL Normal 0.2-1.0 [facility] Comment on above: Performed By: #### B FIELD CONTACT TECHNICIAN, CMP ####[facility] [address] [place], [place] [address]Dr. Kasia Nath Calcium [Mass/Vol] 8.5 mg/dL Normal 8.5-10.[address] [facility] Comment on above: Performed By: #### B FIELD CONTACT TECHNICIAN, CMP ####[facility] [address] [place], [place] [address]Dr. Kasia Nath Chloride [Moles/Vol] 102 mmol/L Normal 98-107 [facility] Comment on above: Performed By: #### B FIELD CONTACT TECHNICIAN, CMP ####[facility] [address] [place], [place] [address]Dr. Kasia Nath CO2 [Moles/Vol] 30.2 mmol/L Normal 21.0-32.0 [facility] Comment on above: Performed By: #### B FIELD CONTACT TECHNICIAN, CMP ####[facility] [address] [id number]. Kasia Nath Creatinine [Mass/Vol] 0.94 mg/dL Normal 0.55-1.02 [facility] Comment on above: Performed By: #### B FIELD CONTACT TECHNICIAN, CMP ####[facility] [address] [id number]. Kasia Nath EGFR-AF GUATEMALAN >60 Normal >=60 [facility] Comment on above: Performed By: #### B FIELD CONTACT TECHNICIAN, CMP ####[facility] [address] [id number]. Kasia Nath EGFR-NON AF GUATEMALAN 58 mL/min/1.73m2 Critically low >=60 [facility] Comment on above: Performed By: #### B FIELD CONTACT TECHNICIAN, CMP ####[facility] [address] [address]Dr. Kasia Nath Globulin (S) [Mass/Vol] 4.0 g/dL Normal [facility] Comment on above: Performed By: #### B FIELD CONTACT TECHNICIAN, CMP ####[facility] [address] [id number]. Kasia Nath Glucose [Mass/Vol] 150 mg/dL Critically high 74-106 [facility] Comment on above: Performed By: #### B FIELD CONTACT TECHNICIAN, CMP ####[facility] [address] [phone]. Kasia Nath Potassium [Moles/Vol] 3.8 mmol/L Normal 3.5-5.1 [facility] Comment on above: Performed By: #### B FIELD CONTACT TECHNICIAN, CMP ####[facility] [address] [id number]. Kasia Nath Protein [Mass/Vol] 6.6 g/dL Normal 6.4-8.2 [facility] Comment on above: Performed By: #### B FIELD CONTACT TECHNICIAN, CMP ####[facility] [address] [address]Dr. Kasia Nath Sodium [Moles/Vol] 139 mmol/L Normal 136-145 [facility] Comment on above: Performed By: #### B FIELD CONTACT TECHNICIAN, CMP ####[facility] [address] [phone] Nath Urea nitrogen [Mass/Vol] 24.0 mg/dL Critically high 7.0-18.0 [facility] Comment on above: Performed By: #### B FIELD CONTACT TECHNICIAN, CMP ####[facility] [address] [phone] Nath Urea nitrogen/Creatinine [Mass ratio] 25.5 mg/mg Normal [facility] Comment on above: Performed By: #### B FIELD CONTACT TECHNICIAN, CMP ####[facility] [address] [id number]. Kasia Nath BNPon 01-01-2023 Natriuretic peptide B (Bld) [Mass/Vol] 1419.0 pg/mL Normal <=1,800.0 [facility] Comment on above: Performed By: #### B FIELD CONTACT TECHNICIAN #### [facility] [address] [place] [address] Dr. Kasia Nath CARDIAC EMERY 3-6on 3 CK [Catalytic activity/Vol] 80 U/L Normal 26-192 [facility] Comment on above: Performed By: #### P OCGLUC #### [facility] [address] [place] [address] Dr. Kasia Nath CK.MB [Mass/Vol] 1.85 ng/mL Normal <=3.60 [facility] Comment on above: Performed By: #### P OCGLUC #### [facility] [address] [place] [address] Dr. Kasia Nath HSTROP 13.2 pg/mL Normal 4.0-51.3 [facility] Comment on above: Result Comment: CUT- OFF POINTS HAVE BEEN ESTABLISHED BASED ON THE FOURTH UNIVERSAL DEFINITIONS OF MYOCARDIAL INFARCTION. THE UPPER REFERENCE LIMIT (URL) OF TROPONIN, DEFINED THE 99TH PERCENTILE OF cTnI DISTRIBUTION IN A REFERENCE POPULATION, HAS BEEN CONFIRMED THE DECISION THRESHOLD FOR [place] DIAGNOSIS. Performed By: #### P OCGLUC #### [facility] [address] [place] [address] Dr. Kasia Nath CK [Catalytic activity/Vol] 73 U/L Normal 26-192 [facility] Comment on above: Performed By: #### P OCGLUC #### [facility] [address] [address] [address] Kasia Nath CK.MB [Mass/Vol] 1.71 ng/mL Normal <=3.60 [facility] Comment on above: Performed By: #### P OCGLUC #### [facility] [address] [address] [address] Kasia Nath HSTROP 13.6 pg/mL Normal 4.0-51.3 [facility] Comment on above: Result Comment: CUT- OFF POINTS HAVE BEEN ESTABLISHED BASED ON THE FOURTH UNIVERSAL DEFINITIONS OF MYOCARDIAL INFARCTION. THE UPPER REFERENCE LIMIT (URL) OF TROPONIN, DEFINED THE 99TH PERCENTILE OF cTnI DISTRIBUTION IN A REFERENCE POPULATION, HAS BEEN CONFIRMED THE DECISION THRESHOLD FOR MN DIAGNOSIS. Performed By: #### P OCGLUC #### [facility] [address] [place] [address] Dr. Kasia Nath CARDIAC EMERY ADMITon 023 CK [Catalytic activity/Vol] 71 U/L Normal 26-192 [facility] Comment on above: Performed By: #### C BC #### [facility] [address] [place] [address] Dr. Kasia Nath CK.MB [Mass/Vol] 1.69 ng/mL Normal <=3.60 [facility] Comment on above: Performed By: #### C BC #### [facility] [address] [place] [address] Dr. Kasia Nath HSTROP 13.0 pg/mL Normal 4.0-51.3 [facility] Comment on above: Result Comment: CUT- OFF POINTS HAVE BEEN ESTABLISHED BASED ON THE FOURTH UNIVERSAL DEFINITIONS OF MYOCARDIAL INFARCTION. THE UPPER REFERENCE LIMIT (URL) OF TROPONIN, DEFINED THE 99TH PERCENTILE OF cTnI DISTRIBUTION IN A REFERENCE POPULATION, HAS BEEN CONFIRMED THE DECISION THRESHOLD FOR [place] DIAGNOSIS. Performed By: #### C BC #### [facility] [address] [address] [address] Kasia Nath GRETTA 75 ng/mL Normal 9-82 [facility] Comment on above: Performed By: #### C BC #### [facility] [address] [place] [address] Dr. Kasia Nath CBC AUTO DIFFon 01-01-2023 BASO # 0.1 103/ul Normal 0.0-0.1 [facility] Comment on above: Performed By: #### C BC #### [facility] [address] [place] [address] Dr. Kasia Nath Basophils/100 WBC (Bld) 1.1 % Normal 0.2-2.0 [facility] Comment on above: Performed By: #### C BC #### [facility] [address] [place] [address] Dr. Kasia Nath EO # 0.2 103/ul Normal 0.0-0.7 [facility] Comment on above: Performed By: #### C BC #### [facility] [address] [place] [address] Dr. Kasia Nath Eosinophils/100 WBC (Bld) 2.9 % Normal 0.9-7.0 [facility] Comment on above: Performed By: #### C BC #### [facility] [address] [place] [address] Dr. Kasia Nath Erythrocyte distribution width (RBC) [Ratio] 13.8 % Normal 11.0-15.0 [facility] Comment on above: Performed By: #### C BC #### [facility] [address] [place] [address] Dr. Kasia Nath Hematocrit (Bld) [Volume fraction] 36.2 % Normal 36.0-48.0 [facility] Comment on above: Performed By: #### C BC #### [facility] [address] [place] [address] Dr. Kasia Nath Hemoglobin (Bld) [Mass/Vol] 12.1 g/dL Normal 12.0-16.0 [facility] Comment on above: Performed By: #### C BC #### [facility] [address] [place] [address] Dr. Kasia Nath IG # 0.02 10e3/ul Normal 0.00-0.03 [facility] Comment on above: Performed By: #### C BC #### [facility] [address] [place] [address] Dr. Kasia Nath IG % 0.3 % Normal 0.0-0.5 [facility] Comment on above: Performed By: #### C BC #### [facility] [address] [place] [address] Dr. Kasia Nath LYMPH # 1.5 103/ul Normal 1.2-3.8 [facility] Comment on above: Performed By: #### C BC #### [facility] [address] [place] [address] Dr. Kasia Nath Lymphocytes/100 WBC (Bld) 19.9 % Critically low 20.5-60.0 [facility] Comment on above: Performed By: #### C BC #### [facility] [address] [place] [address] Dr. Kasia Nath MANUAL DIFF REQ NO Normal [facility] Comment on above: Performed By: #### C BC #### [facility] [address] [place] [address] Dr. Kasia Nath MCH (RBC) [Entitic mass] 29.7 pg Normal 26.7-34.0 [facility] Comment on above: Performed By: #### C BC #### [facility] [address] [place] [address] Dr. Kasia Nath MCHC (RBC) [Mass/Vol] 33.4 g/dL Normal 29.9-35.2 [facility] Comment on above: Performed By: #### C BC #### [facility] [address] [place] [address] Dr. Kasia Nath MCV (RBC) [Entitic vol] 88.9 fL Normal 81.0-99.0 [facility] Comment on above: Performed By: #### C BC #### [facility] [address] [place] [address] Dr. Kasia Nath MONO # 0.6 103/ul Normal 0.3-0.8 [facility] Comment on above: Performed By: #### C BC #### [facility] [address] [place] [address] Dr. Kasia Nath Monocytes/100 WBC (Bld) 8.0 % Normal 1.7-12.0 [facility] Comment on above: Performed By: #### C BC #### [facility] [address] [place] [address] Dr. Kasia Nath NEUT # 5.1 103/ul Normal 1.4-6.5 [facility] Comment on above: Performed By: #### C BC #### [facility] [address] [place] [address] Dr. Kasia Nath Neutrophils/100 WBC (Bld) 67.8 % Normal 43.0-75.0 [facility] Comment on above: Performed By: #### C BC #### [facility] [address] [place] [address] Dr. Kasia Nath Platelet mean volume (Bld) [Entitic vol] 10.4 fL Normal 9.5-13.5 [facility] Comment on above: Performed By: #### C BC #### [facility] [address] [place] [address] Dr. Kasia Nath PLT 200 103/ul Normal 150-450 [facility] Comment on above: Performed By: #### C BC #### [facility] [address] [place] [address] Dr. Kasia Nath RBC 4.07 106/ul Critically low 4.20-5.40 [facility] Comment on above: Performed By: #### C BC #### [facility] [address] [place] [address] Dr. Kasia Nath WBC 7.5 103/ul Normal 4.0-11.0 [facility] Comment on above: Performed By: #### C BC #### [facility] [address] [place] [address] CHEST WO CONon [...] between these two extremes (Agatston score 101-1000). https://pubs.rsna.org/do i/abs/10.1148/[email or web address] Electronically authenticated by: RENETTA MICHAELS Date: 2023-01-01 14:55 Normal [facility] Covid-19 PCR (CVDTBH)on 12-14 SARS-CoV-2 (COVID-19) RNA FERN+probe Ql (Unsp spec) Not detected Normal NOT DETECTED [facility] Comment on above: Result Comment: When [...] for this test is supported by the Equipment Tech of Health and Human Service's declaration that [...] longer be used). Performed By: #### C [facility] #### [facility] [address] [place] [address] Dr. Kasia Nath ECHO LIMITED STUDYon 023 ECHO LIMITED STUDY Patient: SAIMA CALL Exam Date: 01/01/2023 : 1945 Gender:F Ordering : LD GUERRERO . Admission #: [id number] Family : Order #: [id number] CLICK HERE TO VIEW EXAM ECHOCARDIOGRAM REPORT [...] Kaplan M.D. on 01/01/2023 at 13:19 Normal [facility] GLYCOHEMOGLOBIN A1Con 2022 ADA RECOMMENDATION SEE BELOW Normal [facility] Comment on above: Result Comment: ADA RECOMMENDED LIMIT 4.0 - 6.0 ADA THERAPEUTIC TARGET < 7.0 ACTION SUGGESTED > 7.0 Performed By: #### P OCGLUC #### [facility] [address] [address] [address] Kasia Nath Glucose [Mass/Vol] 318 mg/dL Normal [facility] Comment on above: Performed By: #### P OCGLUC #### [facility] [address] [address] [address] Kasia Nath HbA1c (Bld) [Mass fraction] 12.7 % Critically high 4.5-6.2 [facility] Comment on above: Performed By: #### P OCGLUC #### [facility] [address] [address] [address] Kasia Nath POINT OF CARE GLUCOSEon 12-14 Glucose [Mass/Vol] 162 mg/dL Critically high -106 [facility] Comment on above: Performed By: #### P OCGLUC ####[facility] [address] [address]Dr. Kasia Nath Glucose [Mass/Vol] 213 mg/dL Critically high -106 [facility] Comment on above: Performed By: #### P OCGLUC ####[facility] [address] [address]Dr. Kasia Nath Glucose [Mass/Vol] 248 mg/dL Critically high -106 [facility] Comment on above: Performed By: #### P OCGLUC #### [facility] [address] [address] [address] Kasia Nath PROF CHEM 8 (BAS METB)on Anion gap [Moles/Vol] 11.8 mmol/L Normal [facility] Comment on above: Performed By: #### C BC #### [facility] [address] [address] [address] Kasia Nath Calcium [Mass/Vol] 8.4 mg/dL Critically low 8.5-10.1 [facility] Comment on above: Performed By: #### C BC #### [facility] [address] [address] [address] Kasia Nath Chloride [Moles/Vol] 102 mmol/L Normal 98-107 [facility] Comment on above: Performed By: #### C BC #### [facility] [address] [place] [address] Dr. Kasia Nath CO2 [Moles/Vol] 28.4 mmol/L Normal 21.0-32.0 [facility] Comment on above: Performed By: #### C BC #### [facility] [address] [place] [address] Dr. Kasia Nath Creatinine [Mass/Vol] 1.09 mg/dL Critically high 0.55-1.02 [facility] Comment on above: Performed By: #### C BC #### [facility] [address] [place] [address] Dr. Kasia Nath EGFR-AF GUATEMALAN 59 mL/min/1.73m2 Critically low >=60 [facility] Comment on above: Performed By: #### C BC #### [facility] [address] [place] [address] Dr. Kasia Nath EGFR-NON AF GUATEMALAN 49 mL/min/1.73m2 Critically low >=60 [facility] Comment on above: Performed By: #### C BC #### [facility] [address] [place] [address] Dr. Kasia Nath Glucose [Mass/Vol] 247 mg/dL Critically high 74-106 [facility] Comment on above: Performed By: #### C BC #### [facility] [address] [place] [address] Dr. Kasia Nath Potassium [Moles/Vol] 4.2 mmol/L Normal 3.5-5.1 [facility] Comment on above: Performed By: #### C BC #### [facility] [address] [address] [address] Kasia Nath Sodium [Moles/Vol] 138 mmol/L Normal 136-[address] [facility] Comment on above: Performed By: #### C BC #### [facility] [address] [address] [address] Kasia Nath Urea nitrogen [Mass/Vol] 28.0 mg/dL Critically high 7.0-18.0 [facility] Comment on above: Performed By: #### C BC #### [facility] [address] [address] [address] Kasia Nath Urea nitrogen/Creatinine [Mass ratio] 25.7 mg/mg Normal [facility] Comment on above: Performed By: #### C BC #### [facility] [address] [place] [address] Dr. Kasia Nath XR CHEST 1 Von [...] ALVAREZ Date: 2023-01-01 05:38 Normal [facility] ECHOCARDIO M/2D COMPLETEon 1 11-15-2021 ECHOCARDIO M/2D COMPLETE Patient: JOE CALL Exam Date: 09/15/2022 : 1945 Gender:F Ordering : YAMEL MCCRACKEN [facility] Admission #: [id number] Family : DR SHANTEL STEVEN M.D. Order #: [id number] CLICK HERE TO VIEW EXAM ECHOCARDIOGRAM REPORT [...] M.D. on 09/15/2022 at 18:17 Normal [facility] GI PANEL (PCR)on 05-02-2022 Adenovirus F 40/41 Not detected Normal NOT DETECTED [facility] Comment on above: Performed By: #### P OCGLUC #### [facility] [address] [place] [address] Dr. Kasia Nath Astrovirus Not detected Normal NOT DETECTED [facility] Comment on above: Performed By: #### P OCGLUC #### [facility] [address] [place] [address] Dr. Kasia Nath C. Diff toxin A/B Not detected Normal NOT DETECTED [facility] Comment on above: Performed By: #### P OCGLUC #### [facility] [address] [place] [address] Dr. Kasia Nath Campylobacter Not detected Normal NOT DETECTED [facility] Comment on above: Performed By: #### P OCGLUC #### [facility] [address] [address] [address] Kasia Nath Cryptosporidium Not detected Normal NOT DETECTED [facility] Comment on above: Performed By: #### P OCGLUC #### [facility] [address] [address] [address] Kasia Nath Cyclos. Cayetanensis Not detected Normal NOT DETECTED [facility] Comment on above: Performed By: #### P OCGLUC #### [facility] [address] [address] [address] Kasia Nath E. Coli O157 Not Applicable Normal Not Applicable [facility] Comment on above: Performed By: #### P OCGLUC #### [facility] [address] [place] [address] Dr. Kasia Nath E. histolytica Not detected Normal NOT DETECTED [facility] Comment on above: Performed By: #### P OCGLUC #### [facility] [address] [place] [address] Dr. Kasia Nath EAEC Not detected Normal NOT DETECTED [facility] Comment on above: Performed By: #### P OCGLUC #### [facility] [address] [place] [address] Dr. Kasia Nath EIEC Not detected Normal NOT DETECTED [facility] Comment on above: Performed By: #### P OCGLUC #### [facility] [address] [place] [address] Dr. Kasia Nath EPEC Detected Abnormal NOT DETECTED [facility] Comment on above: Performed By: #### P OCGLUC #### [facility] [address] [place] [address] Dr. Kasia Nath ETEC Not detected Normal NOT DETECTED [facility] Comment on above: Performed By: #### P OCGLUC #### [facility] [address] [place] [address] Dr. Kasia Nath G. Lamblia Not detected Normal NOT DETECTED [facility] Comment on above: Performed By: #### P OCGLUC #### [facility] [address] [place] [address] Dr. Kasia Nath GIPANEL CONTROLS PASSED Normal [facility] Comment on above: Performed By: #### P OCGLUC #### [facility] [address] [address] [address] Kasia FRAIRE HEADER GI PANEL BACTERIA Normal [facility] Comment on above: Performed By: #### P OCGLUC #### [facility] [address] [address] [address] Kasia GE ECOLI GI PANEL DIARRHEAGEN IC E.COLI / SHIGELLA Normal [facility] Comment on above: Performed By: #### P OCGLUC #### [facility] [address] [address] [address] Kasia GE INFO SEE BELOW [facility] Comment on above: Result Comment: EAEC - Enteroaggregative E. Coli EPEC- Enteropathogenic E. Coli ETEC- Enterotoxigenic E. Coli lt/st STEC- Shigella-like toxin-producing E. Coli stx1/stx2 EIEC- Shigella/Enteroinvasive E. Coli Performed By: #### P OCGLUC #### [facility] [address] [address] [address] Kasia GE PARASITES GI PANEL PARASITES Normal [facility] Comment on above: Performed By: #### P OCGLUC #### [facility] [address] [address] [address] Kasia GE VIRUS GI PANEL VIRUSES Normal [facility] Comment on above: Performed By: #### P OCGLUC #### [facility] [address] [address] [address] Kasia Nath Norovirus GI/GII Not detected Normal NOT DETECTED [facility] Comment on above: Performed By: #### P OCGLUC #### [facility] [address] [address] [address] Kasia Garland. Shigelloides Not detected Normal NOT DETECTED [facility] Comment on above: Performed By: #### P OCGLUC #### [facility] [address] [address] [address] Kasia Nath Rotavirus A Not detected Normal NOT DETECTED [facility] Comment on above: Performed By: #### P OCGLUC #### [facility] [address] [address] [address] Kasia Nath Salmonella Not detected Normal NOT DETECTED [facility] Comment on above: Performed By: #### P OCGLUC #### [facility] [address] [address] [address] Kasia Nath Sapovirus Not detected Normal NOT DETECTED [facility] Comment on above: Performed By: #### P OCGLUC #### [facility] [address] [address] [address] Kasia Nath STEC Not detected Normal NOT DETECTED [facility] Comment on above: Performed By: #### P OCGLUC #### [facility] [address] [address] [address] Kasia Nath Vibrio Not detected Normal NOT DETECTED [facility] Comment on above: Performed By: #### P OCGLUC #### [facility] [address] [address] [address] Kasia Nath Vibrio Cholera Not detected Normal NOT DETECTED [facility] Comment on above: Performed By: #### P OCGLUC #### [facility] [address] [address] [address] Kasia Nath Y. Enterocolitica Not detected Normal NOT DETECTED [facility] Comment on above: Performed By: #### P OCGLUC #### [facility] [address] [address] [address] Kasia Nath OCC BLD IMMUNO SCREENon -2 OCCULT BLOOD Negative Normal NEGATIVE [facility] Comment on above: Performed By: #### C BC #### [facility] [address] [address] [address] Kasia Nath XR knee BI 4Von 08-25-2021 XR knee BI 4V [facility] [employer] Other XR knee BI 4V [facility] [employer] Other XR knee BI 4V [address] [place] [address] [employer] Other XR knee BI 4V [address] [employer] Other XR knee BI 4V XRay Report [place] [employer] Other XR knee BI 4V Signed [employer] Other XR knee BI 4V Patient: Joe Call MR#: [id number] [employer] Other XR knee BI 4V 0 [employer] Other XR knee BI 4V : 1945 Acct:[id number] [employer] Other XR knee BI 4V Age/Sex: 76 / F ADM Date: 08/25/21 [employer] Other XR knee BI 4V Loc: [facility] Room: Type : [facility] [employer] Other XR knee BI 4V Attending Dr: Akbar Cui II, MD [employer] Other XR knee BI 4V Ordering Provider: Akbar Cui MD [facility] Other XR knee BI 4V Date of Service: 08/25/21 [employer] Other XR knee BI 4V XR/XR knee BI 4V: Pain in right knee;Pain in left knee [employer] Other XR knee BI 4V Copies to: Akbar Cui MD [facility] Other XR knee BI 4V XR knee BI 4V 2020 1:32 PM [employer] Other XR knee BI 4V SIGNS AND SYMPTOMS: Bilateral knee pain with decreased range of motion, weakness [employer] Other XR knee BI 4V PROTOCOL: Frontal, lateral, and sunrise views of the bilateral knees [employer] Other XR knee BI 4V COMPARISON: None [employer] Other XR knee BI 4V FINDINGS: [employer] Other XR knee BI 4V There is mild narrow ing of the medial weightbearing joint spaces. There is mild patellofemoral [employer] Other XR knee BI 4V joint space loss. Th ere is spurring of the poles of the patella bilaterally. There is mild lateral [employer] Other XR knee BI 4V patellar subluxation bilaterally. There is no evidence of acute displaced fracture. Well-corticated [employer] Other XR knee BI 4V ossific structures o r separate from the right medial weightbearing joint space. This may represent a [employer] Other XR knee BI 4V calcified loose bodies. [employer] Other XR knee BI 4V X R/XR knee BI 4V [employer] Other XR knee BI 4V IMPRESSION: [employer] Other XR knee BI 4V Degenerative changes are noted are noted bilaterally, as above. [employer] Other XR knee BI 4V Well-corticated ossi fic structures or separate from the right medial weightbearing joint space. This [employer] Other XR knee BI 4V may represent a calcified loose bodies. [employer] Other XR knee BI 4V No acute displaced fracture. [employer] Other XR knee BI 4V There is mild latera l subluxation of the patella within the patellofemoral joint space bilaterally. [employer] Other XR knee BI 4V Impression dictated by: Emery Lobo M.D.08/25/2021 2:51 PM [facility] Other XR knee BI 4V Dictation Location: [address] [address] [employer] Other XR knee BI 4V Transcribed By: RAFAEL 08/25/21 1451 [facility] Other XR knee BI 4V Dictated By: Emery Lobo II, MD 08/25/21 1447 [facility] Other XR knee BI 4V Signed By: [facility] Other XR knee BI 4V 08/25/21 1451 [facility] [employer] Other XR pelvis 1-2Von 08-25-2021 XR pelvis 1-2V XR/XR pelvis 1-2V: Pain in right knee;Pain in left knee [employer] Other XR pelvis 1-2V XR pelvis 1-2V 08/25/2021 1:32 PM [employer] Other XR pelvis 1-2V SIGNS AND SYMPTOMS: Bilateral generalized knee pain, limited range of motion with weakness [employer] Other XR pelvis 1-2V PROTOCOL: Frontal radiograph of the pelvis [employer] Other XR pelvis 1-2V There is mild narrow ing of the weightbearing joint spaces. Mild degenerative changes are noted in [employer] Other XR pelvis 1-2V the symphysis pubis. There is no evidence of fracture or dislocation. Vascular calcifications are [facility] Other XR pelvis 1-2V present in the pelvis. [employer] Other XR pelvis 1-2V X R/XR pelvis 1-2V [employer] Other XR pelvis 1-2V No fracture or dislocation. [employer] Other XR pelvis 1-2V Mild degenerative changes are noted in the joint space of the hips. [employer] Other XR pelvis 1-2V Impression dictated by: Emery Lobo M.D.08/25/2021 2:54 PM [facility] Other XR pelvis 1-2V Transcribed By: PWS 08/25/[address] [place] [address] [employer] Other XR pelvis 1-2V Dictated By: Emery Lobo II, MD 08/25/[address] [place] [address] [employer] Other XR pelvis 1-2V 08/25/[address] [place] [address] [facility] Other Vital Signs Date Time Vital Sign Value Performing Clinician Facility 01-14-2025 10:00-0500 Body height 165.1 cm Shantel Steven MD Work Phone: [facility] 01-14-2025 10:00-0500 Body mass index (BMI) [Ratio] 44.3 kg/m2 Shantel Steven MD Work Phone: [facility] 01-14-2025 10:00-0500 Body weight 120.88 kg Shantel Steven MD Work Phone: [facility] 01-14-2025 10:00-0500 Diastolic blood pressure 80 mm[Hg] Shantel Steven MD Work Phone: [facility] 01-14-2025 10:00-0500 Heart rate 66 /min Shantel Steven MD Work Phone: [facility] 01-14-2025 10:00-0500 SaO2% (BldA) [Mass fraction] 93 % Shantel Steven MD Work Phone: [facility] 01-14-2025 10:00-0500 Systolic blood pressure 176 mm[Hg] Shantel Steven MD Work Phone: [facility] 01-06-2025 15:22-0500 Body height 165.1 cm Shantel Steven MD Work Phone: [facility] 01-06-2025 15:22-0500 Body mass index (BMI) [Ratio] 44.7 kg/m2 Shantel Steven MD Work Phone: [facility] 01-06-2025 15:22-0500 Body weight 122.01 kg Shantel Steven MD Work Phone: [facility] 01-06-2025 15:22-0500 Diastolic blood pressure 83 mm[Hg] Shantel Steven MD Work Phone: [facility] 01-06-2025 15:22-0500 Heart rate 66 /min Shantel Steven MD Work Phone: [facility] 01-06-2025 15:22-0500 Systolic blood pressure 155 mm[Hg] Shantel Steven MD Work Phone: [facility] 12-26-2024 12:58-0500 Body height 165.1 cm Jorge Luis Tupa DO Work Phone: [facility] 12-26-2024 12:58-0500 Body mass index (BMI) [Ratio] 43.6 kg/m2 Jorge Luis Tupa DO Work Phone: [facility] 12-26-2024 12:58-0500 Body weight 118.84 kg Jorge Luis Tupa DO Work Phone: [facility] 12-26-2024 12:58-0500 Diastolic blood pressure 79 mm[Hg] Jorge Luis Tupa DO Work Phone: [facility] 12-26-2024 12:58-0500 Heart rate 92 /min Jorge Luis Tupa DO Work Phone: [facility] 12-26-2024 12:58-0500 SaO2% (BldA) [Mass fraction] 97 % Jorge Luis Tupa DO Work Phone: [facility] 12-26-2024 12:58-0500 Systolic blood pressure 175 mm[Hg] Jorge Luis Tupa DO Work Phone: [facility] 12-09-2024 13:33-0500 Body height 165.1 cm Jorge Luis Tupa DO Work Phone: [facility] 12-09-2024 13:33-0500 Body mass index (BMI) [Ratio] 43.4 kg/m2 Jorge Luis Tupa DO Work Phone: [facility] 12-09-2024 13:33-0500 Body weight 118.55 kg Jorge Luis Tupa DO Work Phone: [facility] 12-09-2024 13:33-0500 Diastolic blood pressure 83 mm[Hg] Jorge Luis Tupa DO Work Phone: [facility] 12-09-2024 13:33-0500 Heart rate 81 /min Jorge Luis Tupa DO Work Phone: [facility] 12-09-2024 13:33-0500 Respiratory rate 14 /min Ojrge Luis Tupa DO Work Phone: [facility] 12-09-2024 13:33-0500 Systolic blood pressure 156 mm[Hg] Jorge Luis Tupa DO Work Phone: [facility] 11-11-2024 13:46-0500 Body height 165.1 cm Jorge Luis Tupa DO Work Phone: [facility] 11-11-2024 13:46-0500 Body mass index (BMI) [Ratio] 41.1 kg/m2 Jorge Luis Tupa DO Work Phone: [facility] 11-11-2024 13:46-0500 Body temperature 97.3 [degF] Jorge Luis Tupa DO Work Phone: [facility] 11-11-2024 13:46-0500 Body weight 112.03 kg Jorge Luis Tupa DO Work Phone: [facility] 11-11-2024 13:46-0500 Diastolic blood pressure 84 mm[Hg] Jorge Luis Tupa DO Work Phone: [facility] 11-11-2024 13:46-0500 Heart rate 95 /min Jorge Luis Tupa DO Work Phone: [facility] 11-11-2024 13:46-0500 Respiratory rate 16 /min Jorge Luis Tupa DO Work Phone: [facility] 11-11-2024 13:46-0500 SaO2% (BldA) [Mass fraction] 96 % Jorge Luis Tupa DO Work Phone: [facility] 11-11-2024 13:46-0500 Systolic blood pressure 145 mm[Hg] Jorge Luis Tupa DO Work Phone: [facility] 11-03-2024 11:43-0500 Body height 165.1 cm Jorge Luis Tupa DO Work Phone: [facility] 11-03-2024 11:43-0500 Body mass index (BMI) [Ratio] 41.1 kg/m2 Jorge Luis Tupa DO Work Phone: [facility] 11-03-2024 11:43-0500 Body weight 112.03 kg Jorge Luis Tupa DO Work Phone: [facility] 11-03-2024 11:43-0500 Diastolic blood pressure 70 mm[Hg] Jorge Luis Tupa DO Work Phone: [facility] 11-03-2024 11:43-0500 Heart rate 78 /min Jorge Luis Tupa DO Work Phone: [facility] 11-03-2024 11:43-0500 SaO2% (BldA) [Mass fraction] 97 % Jorge Luis Tupa DO Work Phone: [facility] 11-03-2024 11:43-0500 Systolic blood pressure 138 mm[Hg] Jorge Luis Tupa DO Work Phone: [facility] 10-25-2024 07:49-0500 Diastolic blood pressure 73 mm[Hg] Jorge Luis Tupa DO Work Phone: [facility] 10-25-2024 07:49-0500 Heart rate 85 /min Jorge Luis Tupa DO Work Phone: [facility] 10-25-2024 07:49-0500 Respiratory rate 18 /min Jorge Luis Tupa DO Work Phone: [facility] 10-25-2024 07:49-0500 SaO2% (BldA) [Mass fraction] 98 % Jorge Luis Tupa DO Work Phone: [facility] 10-25-2024 07:49-0500 Systolic blood pressure 135 mm[Hg] Jorge Luis Tupa DO Work Phone: [facility] 10-25-2024 05:58-0500 Body height 165.1 cm Jorge Luis Tupa DO Work Phone: [facility] 10-25-2024 05:58-0500 Body temperature 98 [degF] Jorge Luis Tupa DO Work Phone: [facility] 10-25-2024 05:58-0500 Body weight 122.92 kg Jorge Luis Tupa DO Work Phone: [facility] 10-22-2024 04:48-0500 Body height 165.1 cm Jorge Luis Tupa DO Work Phone: [facility] 10-22-2024 04:48-0500 Body temperature 98.5 [degF] Jorge Luis Tupa DO Work Phone: [facility] 10-22-2024 04:48-0500 Body weight 114.8 kg Jorge Luis Tupa DO Work Phone: [facility] 10-22-2024 04:48-0500 Diastolic blood pressure 68 mm[Hg] Jorge Luis Tupa DO Work Phone: [facility] 10-22-2024 04:48-0500 Heart rate 100 /min Jorge Luis Tupa DO Work Phone: [facility] 10-22-2024 04:48-0500 Respiratory rate 18 /min Jorge Luis Tupa DO Work Phone: [facility] 10-22-2024 04:48-0500 SaO2% (BldA) [Mass fraction] 97 % Jorge Luis Tupa DO Work Phone: [facility] 10-22-2024 04:48-0500 Systolic blood pressure 132 mm[Hg] Jorge Luis Tupa DO Work Phone: [facility] 10-20-2024 12:00-0500 Body temperature 97.4 [degF] Jorge Luis Tupa DO Work Phone: [facility] 10-20-2024 12:00-0500 Diastolic blood pressure 73 mm[Hg] Jorge Luis Tupa DO Work Phone: [facility] 10-20-2024 12:00-0500 Heart rate 98 /min Jorge Luis Tupa DO Work Phone: [facility] 10-20-2024 12:00-0500 Respiratory rate 20 /min Jorge Luis Tupa DO Work Phone: [facility] 10-20-2024 12:00-0500 SaO2% (BldA) [Mass fraction] 98 % Jorge Luis Tupa DO Work Phone: [facility] 10-20-2024 12:00-0500 Systolic blood pressure 116 mm[Hg] Jorge Luis Tupa DO Work Phone: [facility] 10-20-2024 05:57-0500 Body weight 110.9 kg Jorge Luis Tupa DO Work Phone: [facility] 10-17-2024 14:18-0500 Body height 165.1 cm Jorge Luis Tupa DO Work Phone: [facility] 10-01-2024 09:51-0500 Body height 165.1 cm Christel Chacon MD Work Phone: [facility] 10-01-2024 09:51-0500 Body mass index (BMI) [Ratio] 42.27 kg/m2 Christel Chacon MD Work Phone: [facility] 10-01-2024 09:51-0500 Body weight 115.21 kg Christel Chacon MD Work Phone: [facility] 10-01-2024 09:51-0500 Diastolic blood pressure 110 mm[Hg] Christel Chacon MD Work Phone: [facility] 10-01-2024 09:51-0500 Systolic blood pressure 138 mm[Hg] Christel Chacon MD Work Phone: [facility] 08-07-2024 10:04-0400 Body height 165.1 cm MD Shantel Steven Work Phone: [facility] 08-07-2024 10:04-0400 Body mass index (BMI) [Ratio] 43.1 kg/m2 MD Shantel Steven Work Phone: [facility] 08-07-2024 10:04-0400 Body weight 117.48 kg MD Shantel Steven Work Phone: [facility] 08-07-2024 10:04-0400 Diastolic blood pressure 69 mm[Hg] MD Shantel Steven Work Phone: [facility] 08-07-2024 10:04-0400 Heart rate 52 /min MD Shantel Steven Work Phone: [facility] 08-07-2024 10:04-0400 SaO2% (BldA) [Mass fraction] 93 % MD Shantel Steven Work Phone: [facility] 08-07-2024 10:04-0400 Systolic blood pressure 117 mm[Hg] MD Shantel Steven Work Phone: [facility] 07-22-2024 13:15-0400 Body height 165.1 cm Christel Chacon MD Work Phone: [facility] 07-22-2024 13:15-0400 Body mass index (BMI) [Ratio] 42.6 kg/m2 Christel Chacon MD Work Phone: [facility] 07-22-2024 13:15-0400 Body weight 116.12 kg Christel Chacon MD Work Phone: [facility] 07-22-2024 13:15-0400 Diastolic blood pressure 82 mm[Hg] Christel Chacon MD Work Phone: [facility] 07-22-2024 13:15-0400 Systolic blood pressure 130 mm[Hg] Christel Chacon MD Work Phone: [facility] 07-16-2024 10:20-0400 Body height 165.1 cm MD Shantel Steven Work Phone: [facility] 07-16-2024 10:20-0400 Body mass index (BMI) [Ratio] 43.1 kg/m2 MD Shantel Steven Work Phone: [facility] 07-16-2024 10:20-0400 Body weight 117.48 kg MD Shantel Steven Work Phone: [facility] 07-16-2024 10:20-0400 Diastolic blood pressure 80 mm[Hg] MD Shantel Steven Work Phone: [facility] 07-16-2024 10:20-0400 Heart rate 60 /min MD Shantel Steven Work Phone: [facility] 07-16-2024 10:20-0400 Systolic blood pressure 151 mm[Hg] MD Shantel Steven Work Phone: [facility] 07-10-2024 13:40-0400 Body height 165.1 cm Lizett Orville FIELD CONTACT TECHNICIAN Work Phone: [facility] 07-10-2024 13:40-0400 Body mass index (BMI) [Ratio] 42.43 kg/m2 Lizett Gillmor FIELD CONTACT TECHNICIAN Work Phone: [facility] 07-10-2024 13:40-0400 Body weight 115.67 kg Lizett Gillmor FIELD CONTACT TECHNICIAN Work Phone: [facility] 07-10-2024 13:40-0400 Diastolic blood pressure 86 mm[Hg] Lizett Gillmor FIELD CONTACT TECHNICIAN Work Phone: [facility] 07-10-2024 13:40-0400 Systolic blood pressure 132 mm[Hg] Lizett Hoodteo DUNN Work Phone: [facility] 07-07-2024 11:41-0400 Body height 165.1 cm MD Shantel Steven Work Phone: [facility] 07-07-2024 11:41-0400 Body mass index (BMI) [Ratio] 42.4 kg/m2 MD Shantel Steven Work Phone: [facility] 07-07-2024 11:41-0400 Body weight 115.66 kg MD Shantel Steven Work Phone: [facility] 07-07-2024 11:41-0400 Diastolic blood pressure 79 mm[Hg] MD Shantel Steven Work Phone: [facility] 07-07-2024 11:41-0400 Heart rate 66 /min MD Shantel Steven Work Phone: [facility] 07-07-2024 11:41-0400 Systolic blood pressure 132 mm[Hg] MD Shantel Steven Work Phone: [facility] 06-16-2024 13:08-0400 Body height 165.1 cm MD Shantel Steven Work Phone: [facility] 06-16-2024 13:08-0400 Body mass index (BMI) [Ratio] 41.9 kg/m2 MD Shantel Steven Work Phone: [facility] 06-16-2024 13:08-0400 Body weight 114.3 kg MD Shantel Steven Work Phone: [facility] 06-16-2024 13:08-0400 Diastolic blood pressure 73 mm[Hg] MD Shantel Steven Work Phone: [facility] 06-16-2024 13:08-0400 Heart rate 55 /min MD Shantel Steven Work Phone: [facility] 06-16-2024 13:08-0400 Systolic blood pressure 137 mm[Hg] MD Shantel Steven Work Phone: [facility] 06-05-2024 11:51-0400 Body height 165.1 cm MD Shantel Steven Work Phone: [facility] 06-05-2024 11:51-0400 Body mass index (BMI) [Ratio] 43.2 kg/m2 MD Shantel Steven Work Phone: [facility] 06-05-2024 11:51-0400 Body temperature 96.6 [degF] MD Shantel Steven Work Phone: [facility] 06-05-2024 11:51-0400 Body weight 117.7 kg MD Shantel Steven Work Phone: [facility] 06-05-2024 11:51-0400 Diastolic blood pressure 74 mm[Hg] MD Shantel Steven Work Phone: [facility] 06-05-2024 11:51-0400 Heart rate 63 /min MD Shantel Steven Work Phone: [facility] 06-05-2024 11:51-0400 Respiratory rate 18 /min MD Shantel Steven Work Phone: [facility] 06-05-2024 11:51-0400 SaO2% (BldA) [Mass fraction] 97 % MD Shantel Steven Work Phone: [facility] 06-05-2024 11:51-0400 Systolic blood pressure 138 mm[Hg] MD Shantel Steven Work Phone: [facility] 05-22-2024 09:18-0400 Heart rate 55 /min MD Shantel Steven Work Phone: [facility] 05-22-2024 09:09-0400 Body temperature 97.8 [degF] MD Shantel Steven Work Phone: [facility] 05-22-2024 09:09-0400 Diastolic blood pressure 64 mm[Hg] MD Shantel Steven Work Phone: [facility] 05-22-2024 09:09-0400 Respiratory rate 22 /min MD Shantel Steven Work Phone: [facility] 05-22-2024 09:09-0400 SaO2% (BldA) [Mass fraction] 94 % MD Shantel Steven Work Phone: [facility] 05-22-2024 09:09-0400 Systolic blood pressure 140 mm[Hg] MD Shantel Steven Work Phone: [facility] 05-22-2024 09:08-0400 Body height 165.1 cm MD Shantel Steven Work Phone: [facility] 05-22-2024 09:08-0400 Body weight 117.48 kg MD Shantel Steven Work Phone: [facility] 05-19-2024 14:16-0400 Body height 165.1 cm MD Shantel Steven Work Phone: [facility] 05-19-2024 14:16-0400 Body mass index (BMI) [Ratio] 43.1 kg/m2 MD Shantel Steven Work Phone: [facility] 05-19-2024 14:16-0400 Body weight 117.48 kg MD Shantel Steven Work Phone: [facility] 05-19-2024 14:16-0400 Diastolic blood pressure 72 mm[Hg] MD Shantel Steven Work Phone: [facility] 05-19-2024 14:16-0400 Heart rate 56 /min MD Shantel Steven Work Phone: [facility] 05-19-2024 14:16-0400 Systolic blood pressure 133 mm[Hg] MD Shantel Steven Work Phone: [facility] 05-07-2024 11:52-0400 Body height 165.1 cm MD Shantel Steven Work Phone: [facility] 05-07-2024 11:52-0400 Body mass index (BMI) [Ratio] 41.5 kg/m2 MD Shantel Steven Work Phone: [facility] 05-07-2024 11:52-0400 Body temperature 98.5 [degF] MD Shantel Steven Work Phone: [facility] 05-07-2024 11:52-0400 Body weight 113.39 kg MD Shantel Steven Work Phone: [facility] 05-07-2024 11:52-0400 Diastolic blood pressure 81 mm[Hg] MD Shantel Steven Work Phone: [facility] 05-07-2024 11:52-0400 Heart rate 91 /min MD Shantel Steven Work Phone: [facility] 05-07-2024 11:52-0400 Systolic blood pressure 141 mm[Hg] MD Shantel Steven Work Phone: [facility] 04-29-2024 12:54-0400 Body height 165.1 cm MD Shantel Steven Work Phone: [facility] 04-29-2024 12:54-0400 Body mass index (BMI) [Ratio] 41.5 kg/m2 MD Shantel Steven Work Phone: [facility] 04-29-2024 12:54-0400 Body weight 113.39 kg MD Shantel Steven Work Phone: [facility] 04-29-2024 12:54-0400 Diastolic blood pressure 58 mm[Hg] MD Shantel Steven Work Phone: [facility] 04-29-2024 12:54-0400 Heart rate 54 /min MD Shantel Steven Work Phone: [facility] 04-29-2024 12:54-0400 Systolic blood pressure 90 mm[Hg] MD Shantel Steven Work Phone: [facility] 04-03-2024 11:29-0400 Body height 165.1 cm MD Shantel Steven Work Phone: [facility] 04-03-2024 11:29-0400 Body mass index (BMI) [Ratio] 43.7 kg/m2 MD Shantel Steven Work Phone: [facility] 04-03-2024 11:29-0400 Body weight 119.29 kg MD Shantel Steven Work Phone: [facility] 04-03-2024 11:29-0400 Diastolic blood pressure 71 mm[Hg] MD Shantel Steven Work Phone: [facility] 04-03-2024 11:29-0400 Heart rate 56 /min MD Shantel Steven Work Phone: [facility] 04-03-2024 11:29-0400 Systolic blood pressure 116 mm[Hg] MD Shantel Steven Work Phone: [facility] 03-25-2024 15:15-0400 Body height 165.1 cm MD Shantel Steven Work Phone: [facility] 03-25-2024 15:15-0400 Body mass index (BMI) [Ratio] 43.9 kg/m2 MD Shantel Steven Work Phone: [facility] 03-25-2024 15:15-0400 Body weight 119.74 kg MD Shantel Steven Work Phone: [facility] 03-25-2024 15:15-0400 Diastolic blood pressure 87 mm[Hg] MD Shantel Steven Work Phone: [facility] 03-25-2024 15:15-0400 Heart rate 66 /min MD Shantel Steven Work Phone: [facility] 03-25-2024 15:15-0400 Systolic blood pressure 125 mm[Hg] MD Shantel Steven Work Phone: [facility] 02-15-2024 14:18-0400 Body height 165.1 cm [facility] 02-15-2024 14:18-0400 Body mass index (BMI) [Ratio] 38.6 kg/m2 [facility] 02-15-2024 14:18-0400 Body weight 105.23 kg [facility] 02-15-2024 14:18-0400 Diastolic blood pressure 66 mm[Hg] [facility] 02-15-2024 14:18-0400 Heart rate 55 /min [facility] 02-15-2024 14:18-0400 Systolic blood pressure 114 mm[Hg] [facility] 01-18-2024 10:23-0500 Body height 165.1 cm [facility] 01-18-2024 10:23-0500 Body mass index (BMI) [Ratio] 43.2 kg/m2 [facility] 01-18-2024 10:23-0500 Body weight 117.93 kg [facility] 01-18-2024 10:23-0500 Diastolic blood pressure 70 mm[Hg] [facility] 01-18-2024 10:23-0500 Heart rate 98 /min [facility] 01-18-2024 10:23-0500 SaO2% (BldA) [Mass fraction] 65 % [facility] 01-18-2024 10:23-0500 Systolic blood pressure 110 mm[Hg] [facility] 10-23-2023 16:00-0500 Body height 165.1 cm Jaleesa [id number] Other [employer] [employer] Other 10-23-2023 16:00-0500 Body mass index (BMI) [Ratio] 44.63 kg/m2 [employer] Other [employer] Other 10-23-2023 16:00-0500 Body temperature 96.8 [degF] Jaleesa WHOOP Other [employer] Other 10-23-2023 16:00-0500 Body weight 121.66 kg Jaleesa WHOOP Other [employer] Other 10-23-2023 16:00-0500 Diastolic blood pressure 60 mm[Hg] Azghassan Vanessa Other [employer] Other 10-23-2023 16:00-0500 Respiratory rate 18 /min Jaleesa Vanessa Other [employer] Other 10-23-2023 16:00-0500 SaO2% (BldA) [Mass fraction] 99 % Jaleesa Vanessa Other [employer] Other 10-23-2023 16:00-0500 Systolic blood pressure 124 mm[Hg] Jaleesa Vanessa Other [employer] Other 10-18-2023 13:45-0500 Body height 165.1 cm Shantel Steven Other [employer] Other 10-18-2023 13:45-0500 Body mass index (BMI) [Ratio] 44.86 kg/m2 Shantel Steven Other [employer] Other 10-18-2023 13:45-0500 Body temperature 97.3 [degF] Shantel Steven Other [employer] Other 10-18-2023 13:45-0500 Body weight 122.29 kg Shantel Steven Other [employer] Other 10-18-2023 13:45-0500 Diastolic blood pressure 84 mm[Hg] Shantel Steven Other [employer] Other 10-18-2023 13:45-0500 SaO2% (BldA) [Mass fraction] 97 % Shantel Steven Other [employer] Other 10-18-2023 13:45-0500 Systolic blood pressure 132 mm[Hg] Shantel Steven Other [employer] Other 09-04-2023 14:00-0400 Body height 165.1 cm Shantel Steven Other [employer] Other 09-04-2023 14:00-0400 Body mass index (BMI) [Ratio] 43.06 kg/m2 Shantel Steven Other [employer] Other 09-04-2023 14:00-0400 Body weight 117.39 kg Shantel Steven Other [employer] Other 09-04-2023 14:00-0400 Diastolic blood pressure 69 mm[Hg] Shantel Steven Other [employer] Other 09-04-2023 14:00-0400 Systolic blood pressure 127 mm[Hg] Shantel Steven Other [employer] Other 07-17-2023 10:00-0400 Body height 165.1 cm Shantel Steven Other [employer] Other 07-17-2023 10:00-0400 Body mass index (BMI) [Ratio] 43.03 kg/m2 Shantel Steven Other [employer] Other 07-17-2023 10:00-0400 Body weight 117.3 kg Shantel Steven Other [employer] Other 07-17-2023 10:00-0400 Diastolic blood pressure 76 mm[Hg] Shantel Steven Other [employer] Other 07-17-2023 10:00-0400 Systolic blood pressure 164 mm[Hg] Shantel Steven Other [employer] Other 04-30-2023 14:30-0400 Body height 165.1 cm Shantel Steven Other [employer] Other 04-30-2023 14:30-0400 Body mass index (BMI) [Ratio] 43.43 kg/m2 Shantel Steven Other [employer] Other 04-30-2023 14:30-0400 Body weight 118.39 kg Shantel Steven Other [employer] Other 04-30-2023 14:30-0400 Diastolic blood pressure 75 mm[Hg] Shantel Steven Other [employer] Other 04-30-2023 14:30-0400 Systolic blood pressure 135 mm[Hg] Shantel Steven Other [employer] Other 03-09-2023 12:15-0400 Body height 165.1 cm Shantel Steven Other [employer] Other 03-09-2023 12:15-0400 Body mass index (BMI) [Ratio] 43.59 kg/m2 Shantel Steven Other [employer] Other 03-09-2023 12:15-0400 Body weight 118.84 kg Shantel Steven Other [employer] Other 03-09-2023 12:15-0400 Diastolic blood pressure 82 mm[Hg] Shantel Steven Other [employer] Other 03-09-2023 12:15-0400 SaO2% (BldA) [Mass fraction] 97 % Shantel Steven Other [employer] Other 03-09-2023 12:15-0400 Systolic blood pressure 130 mm[Hg] Shantel Steven Other [employer] Other 02-20-2023 10:00-0400 Body height 165.1 cm Shantel Steven Other [employer] Other 02-20-2023 10:00-0400 Body mass index (BMI) [Ratio] 41.93 kg/m2 Shantel Steven Other [employer] Other 02-20-2023 10:00-0400 Body weight 114.31 kg Shantel Steven Other [employer] Other 02-20-2023 10:00-0400 Diastolic blood pressure 84 mm[Hg] Shantel Steven Other [employer] Other 02-20-2023 10:00-0400 Systolic blood pressure 132 mm[Hg] Shantel Steven Other [employer] Other 08-04-2022 13:33-0400 Blood Pressure Location [facility] [place] 08-04-2022 13:33-0400 Diastolic blood pressure 88 mm[Hg] [facility] [place] 08-04-2022 13:33-0400 Heart rate 76 /min [facility] [place] 08-04-2022 13:33-0400 Respiratory rate 16 /min [facility] [place] 08-04-2022 13:33-0400 Systolic blood pressure 130 mm[Hg] [facility] 08-25-2021 14:30-0400 Body height 165.1 cm Akbar Cui II Other [employer] Other 08-25-2021 14:30-0400 Body mass index (BMI) [Ratio] 43.26 kg/m2 Akbar Cui II Other [facility] [employer] Other 08-25-2021 14:30-0400 Body weight 117.94 kg Akbar Cui II Other [facility] [employer] Other Encounters Encounter Date Encounter Type Care Provider Facility Start: 01-21-2025 End: 01-21-2025 ambulatory Shantel Steven MD Work Phone: [facility] Work Phone: Start: 01-21-2025 End: 01-21-2025 Patient encounter procedure Shantel Steven MD Work Phone: [facility] Work Phone: Start: 01-14-2025 End: 01-14-2025 ambulatory Shantel Steven MD Work Phone: [facility] Work Phone: Start: 01-14-2025 End: 01-14-2025 Patient encounter procedure Shantel Steven MD Work Phone: [facility] Work Phone: Start: 01-07-2025 End: 01-07-2025 Telephone encounter Christel Chacon MD Work Phone: [facility] Comment on above: referral to Dr Estrada baer Start: 01-06-2025 End: 01-06-2025 Patient encounter procedure Shantel Steven MD Work Phone: [facility] Work Phone: Start: 01-06-2025 End: 01-06-2025 Telephone encounter Christel Chacon MD Work Phone: [facility] Comment on above: sleep study appt Start: 12-26-2024 End: 12-26-2024 ambulatory Jorge Luis Zavala DO Work Phone: [facility] Work Phone: Start: 12-26-2024 End: 12-26-2024 Patient encounter procedure Jorge Luis Zavala DO Work Phone: [facility] Work Phone: Start: 12-18-2024 End: 12-18-2024 ambulatory FRANCHESCA E STU Facility:[facility] [place] Start: 12-18-2024 End: 12-18-2024 Patient encounter procedure FRANCHESCA Alvarado STU [facility] Start: 12-09-2024 End: 12-09-2024 Patient encounter procedure Jorge Luis Zavala DO Work Phone: [facility] Work Phone: Start: 12-08-2024 Non-patient / Non-visit Oni k Tupa DO Work Phone: [facility] Work Phone: Start: 12-08-2024 End: 12-08-2024 ambulatory FRANCHESCA Jenny STU Facility:[facility] [place] Start: 12-08-2024 End: 12-08-2024 Patient encounter procedure FRANCHESCA PERAZA [facility] Start: 12-04-2024 Non-patient / Non-visit Oni k Tupa DO Work Phone: [facility] Work Phone: Start: 12-04-2024 Non-patient / Non-visit Oni k Tupa DO Work Phone: [facility] Work Phone: Start: 12-02-2024 End: 12-02-2024 ambulatory [facility] Start: 11-13-2024 End: 11-13-2024 ambulatory FRANCHESCA Jenny PERAZA Facility:[facility] [place] Start: 11-13-2024 End: 11-13-2024 Patient encounter procedure FRANCHESCA PERAZA [facility] [place] Start: 11-11-2024 End: 11-11-2024 Patient encounter procedure Jorge Luis Camargopa DO Work Phone: [facility] Work Phone: Start: 11-10-2024 Non-patient / Non-visit Oni miranda Tupa DO Work Phone: [facility] Work Phone: Start: 11-06-2024 ambulatory FRANCHESCA Jenny PERAZA Facili ty:[facility] [place] Start: 11-04-2024 End: 11-04-2024 ambulatory FRANCHESCA Jenny PERAZA Facility:[facility] [place] Start: 11-04-2024 End: 11-04-2024 Patient encounter procedure FRANCHESCA PERAZA [facility] [place] Start: 11-03-2024 End: 11-03-2024 Patient encounter procedure Jorge Luis Zavala DO Work Phone: [facility] Work Phone: Start: 10-31-2024 ambulatory [facility] Start: 10-25-2024 End: 10-25-2024 Emergency department patient visit Daniele Jane Facility:[facility] Start: 10-24-2024 Non-patient / Non-visit Oni k Tupa DO Work Phone: [facility] Work Phone: Start: 10-22-2024 End: 10-22-2024 Emergency department patient visit Zhang Norwood Facility:[facility] Start: 10-21-2024 Non-patient / Non-visit Onipamela Camargopa DO Work Phone: [facility] Work Phone: Start: 10-17-2024 Non-patient / Non-visit Onipamela Camargopa DO Work Phone: [facility] Work Phone: Start: 10-17-2024 Non-patient / Non-visit Oni k Tupa DO Work Phone: [facility] Work Phone: Start: 10-16-2024 Non-patient / Non-visit Onipamela Camargopa DO Work Phone: [facility] Work Phone: Start: 10-16-2024 End: 10-20-2024 Evaluation and management of inpatient Kavin Escobar Facility:[facility] Start: 10-08-2024 End: 10-08-2024 ambulatory [facility] Start: 10-01-2024 End: 10-01-2024 Juliette Chacon MD [...] 10-01-2024 ambulatory CHRISTEL CHACON Not Available Start: 09-29-2024 Non-patient / Non-visit Oni k Tupa DO Work Phone: [facility] Work Phone: Start: 09-26-2024 End: 09-30-2024 Telephone encounter Christel Chacon MD Work Phone: [facility] Start: 09-03-2024 ambulatory [facility] Start: 08-20-2024 End: 08-20-2024 ambulatory [facility] Start: 08-07-2024 End: 08-07-2024 ambulatory MD Shantel Steven Work Phone: [facility] Work Phone: Start: 08-07-2024 End: 08-07-2024 Patient encounter procedure MD Shantel Steven Work Phone: [facility] Work Phone: Start: 07-30-2024 Non-patient / Non-visit MD Alessia Steven Work Phone: [facility] Work Phone: Start: 07-25-2024 Non-patient / Non-visit MD Alessia Steven Work Phone: [facility] Work Phone: Start: 07-24-2024 Non-patient / Non-visit MD Alessia Steven Work Phone: [facility] Work Phone: Start: 07-22-2024 End: 07-22-2024 Bamboo flowsheet Christel Chacon MD Work Phone: [facility] Start: 07-22-2024 End: 07-22-2024 Bamboo flowsheet Christel Chacon MD Work Phone: [facility] Start: 07-22-2024 End: 07-22-2024 Office outpatient new 45 minutes Christel Chacon MD Work Phone: [facility] Comment on above: JED (obstructive sle ep apnea) (Primary Dx); LPRD (laryngopharyngeal reflux disease); Throat tightness Start: 07-22-2024 End: 07-22-2024 ambulatory CHRISTEL CHACON Not Available Start: 07-17-2024 End: 07-17-2024 Patient encounter procedure MD Shantel Steven Work Phone: [facility] Work Phone: Start: 07-17-2024 End: 07-17-2024 ambulatory MD Shantel Steven Work Phone: [facility] Work Phone: Start: 07-17-2024 End: 07-17-2024 Departed Referred MD Shantel Steven Work Phone: [facility] [place] Work Phone: Start: 07-17-2024 End: 07-17-2024 MD Shantel Steven Work Phone: [facility] Work Phone: Start: 07-16-2024 End: 07-16-2024 ambulatory MD Shantel Steven Work Phone: [facility] Work Phone: Start: 07-16-2024 End: 07-16-2024 Patient encounter procedure MD Shantel Steven Work Phone: [facility] Work Phone: Start: 07-16-2024 End: 07-16-2024 MD Shantel Steven Work Phone: [facility] Work Phone: Start: 07-15-2024 End: 07-15-2024 Non-patient / Non-visit MD Shantel Steven Work Phone: [facility] Work Phone: Start: 07-15-2024 Non-patient / Non-visit MD Alessia Steven Work Phone: [facility] Work Phone: Start: 07-15-2024 MD Shantel Bajwa n Work Phone: [facility] Work Phone: Start: 07-14-2024 Non-patient / Non-visit MD Alessia Steven Work Phone: [facility] Work Phone: Start: 07-14-2024 MD Shanetl Bajwa n Work Phone: [facility] Work Phone: Start: 07-10-2024 End: 07-10-2024 Bamboo flowsheet Lizett Salazarmor FIELD CONTACT TECHNICIAN Work Phone: [employer] Start: 07-10-2024 End: 07-10-2024 Bamboo flowsheet Lizett Mariemor FIELD CONTACT TECHNICIAN Work Phone: [employer] [facility] Start: 07-10-2024 End: 07-10-2024 Office outpatient visit 25 minutes Lizett Mariemor FIELD CONTACT TECHNICIAN Work Phone: [employer] [facility] Comment on above: Essential tremor (Pr imary Dx); Diabetic polyneuropathy associated with type 2 diabetes mellitus ([facility]/HCC); Balance disorder; Sensory ataxia; Debility; Weakness; Paresthesias Start: 07-10-2024 End: 07-10-2024 ambulatory LIZETT GILLMOR Not Available Start: 07-07-2024 End: 07-07-2024 ambulatory MD Shantel Steven Work Phone: [facility] Work Phone: Start: 07-07-2024 End: 07-07-2024 Patient encounter procedure MD Shantel Steven Work Phone: [facility] Work Phone: Start: 07-07-2024 End: 07-07-2024 MD Shantel Steven Work Phone: [facility] Work Phone: Start: 06-25-2024 ambulatory MD Shantel gray Work Phone: [facility] Work Phone: Start: 06-25-2024 Non-patient / Non-visit MD Alessia Steevn Work Phone: [facility] Work Phone: Start: 06-25-2024 MD Shantel painting Work Phone: [facility] Work Phone: Start: 06-24-2024 Non-patient / Non-visit MD Alessia Steven Work Phone: [facility] Work Phone: Start: 06-24-2024 MD Shantel painting Work Phone: [facility] Work Phone: Start: 06-18-2024 End: 06-18-2024 ambulatory [facility] Start: 06-16-2024 End: 06-16-2024 ambulatory MD Shantel Steven Work Phone: [facility] Work Phone: Start: 06-16-2024 End: 06-16-2024 Patient encounter procedure MD Shantel Steven Work Phone: [facility] Work Phone: Start: 06-16-2024 End: 06-16-2024 MD Shantel Steven Work Phone: [facility] Work Phone: Start: 06-10-2024 Non-patient / Non-visit MD Alessia Steven Work Phone: [facility] Work Phone: Start: 06-10-2024 MD Shantel painting Work Phone: [facility] Work Phone: Start: 06-09-2024 Non-patient / Non-visit MD Alessia Steven Work Phone: [facility] Work Phone: Start: 06-09-2024 MD Shantel painting Work Phone: [facility] Work Phone: Start: 06-05-2024 End: 06-05-2024 ambulatory MD Shantel Steven Work Phone: [facility] Work Phone: Start: 06-05-2024 End: 06-05-2024 Patient encounter procedure MD Shantel Steven Work Phone: [facility] Work Phone: Start: 06-05-2024 End: 06-05-2024 MD Shantel Steven Work Phone: [facility] Work Phone: Start: 06-01-2024 Non-patient / Non-visit MD Alessia Steven Work Phone: [facility] Work Phone: Start: 06-01-2024 MD Shantel painting Work Phone: [facility] Work Phone: Start: 05-26-2024 Non-patient / Non-visit MD Alessia Steven Work Phone: [facility] Work Phone: Start: 05-26-2024 MD Shantel painting Work Phone: [facility] Work Phone: Start: 05-22-2024 End: 05-22-2024 Emergency department patient visit MD Shantel Steven Work Phone: [facility] Work Phone: Start: 05-22-2024 End: 05-22-2024 MD Shantel Steven Work Phone: [facility] Work Phone: Start: 05-20-2024 Non-patient / Non-visit MD Alessia Steven Work Phone: [facility] Work Phone: Start: 05-20-2024 MD Shantel painting Work Phone: [facility] Work Phone: Start: 05-20-2024 End: 05-20-2024 ambulatory [facility] Start: 05-19-2024 End: 05-19-2024 ambulatory MD Shantel Steven Work Phone: [facility] Work Phone: Start: 05-19-2024 End: 05-19-2024 Patient encounter procedure MD Shantel Steven Work Phone: [facility] Work Phone: Start: 05-19-2024 End: 05-19-2024 MD Shantel Steven Work Phone: [facility] Work Phone: Start: 05-07-2024 End: 05-07-2024 ambulatory MD Shantel Steven Work Phone: [facility] Work Phone: Start: 05-07-2024 End: 05-07-2024 Patient encounter procedure MD Shantel Steven Work Phone: [facility] Work Phone: Start: 05-07-2024 End: 05-07-2024 MD Shantel Steven Work Phone: [facility] Work Phone: Start: 05-06-2024 Non-patient / Non-visit MD Alessia Steven Work Phone: [facility] Work Phone: Start: 05-06-2024 MD Shantel painting Work Phone: [facility] Work Phone: Start: 05-05-2024 Non-patient / Non-visit MD Alessia Steven Work Phone: [facility] Work Phone: Start: 05-05-2024 MD Shantel painting Work Phone: [facility] Work Phone: Start: 05-04-2024 End: 05-06-2024 Non-patient / Non-visit MD Shantel Steven Work Phone: [facility] Work Phone: Start: 05-04-2024 End: 05-06-2024 MD Shantel Steven Work Phone: [facility] Work Phone: Start: 05-04-2024 Non-patient / Non-visit MD Alessia Steven Work Phone: [facility] Work Phone: Start: 05-04-2024 MD Shantel painting Work Phone: [facility] Work Phone: Start: 05-02-2024 Non-patient / Non-visit MD Alessia Steven Work Phone: [facility] Work Phone: Start: 05-02-2024 MD Shantel painting Work Phone: [facility] Work Phone: Start: 05-01-2024 Non-patient / Non-visit MD Alessia Steven Work Phone: [facility] Work Phone: Start: 05-01-2024 MD Shantel painting Work Phone: [facility] Work Phone: Start: 04-30-2024 Non-patient / Non-visit MD Alessia Steven Work Phone: [facility] Work Phone: Start: 04-30-2024 MD Shantel painting Work Phone: [facility] Work Phone: Start: 04-30-2024 Non-patient / Non-visit MD Alessia Steven Work Phone: [facility] Work Phone: Start: 04-30-2024 MD Sahntel painting Work Phone: [facility] Work Phone: Start: 04-29-2024 End: 04-29-2024 Patient encounter procedure MD Shantel Steven Work Phone: [facility] Work Phone: Start: 04-29-2024 End: 04-29-2024 MD Shantel Steven Work Phone: [facility] Work Phone: Start: 04-03-2024 End: 04-03-2024 ambulatory MD Shantel Steven Work Phone: [facility] Work Phone: Start: 04-03-2024 End: 04-03-2024 Patient encounter procedure MD Shantel Steven Work Phone: [facility] Work Phone: Start: 04-03-2024 End: 04-03-2024 MD Shantel Steven Work Phone: [facility] Work Phone: Start: 04-01-2024 Non-patient / Non-visit MD Alessia Steven Work Phone: [facility] Work Phone: Start: 04-01-2024 MD Shantel painting Work Phone: [facility] Work Phone: Start: 03-31-2024 Non-patient / Non-visit MD Alessia Steven Work Phone: [facility] Work Phone: Start: 03-31-2024 MD Shantel painting Work Phone: [facility] Work Phone: Start: 03-28-2024 Non-patient / Non-visit MD Alessia Steven Work Phone: [facility] Work Phone: Start: 03-28-2024 MD Shantel painting Work Phone: [facility] Work Phone: Start: 03-27-2024 Non-patient / Non-visit MD Alsesia Steven Work Phone: [facility] Work Phone: Start: 03-27-2024 MD Shantel painting Work Phone: [facility] Work Phone: Start: 03-26-2024 Non-patient / Non-visit MD Alessia Steven Work Phone: [facility] Work Phone: Start: 03-26-2024 MD Shantel painting Work Phone: [facility] Work Phone: Start: 03-25-2024 End: 03-25-2024 Patient encounter procedure MD Shantel Steven Work Phone: [facility] Work Phone: Start: 03-25-2024 End: 03-25-2024 MD Shantel Steven Work Phone: [facility] Work Phone: Start: 03-13-2024 End: 03-13-2024 Patient encounter procedure MD Shantel Steven Work Phone: [facility] [address] Work Phone: Start: 03-13-2024 End: 03-13-2024 ambulatory MD Shantel Steven Work Phone: [facility] Work Phone: Start: 03-07-2024 End: 03-07-2024 ambulatory [facility] Start: 02-19-2024 ambulatory FRANCHESCA CUELLARRY Facility :[facility] Start: 02-15-2024 End: 02-15-2024 ambulatory [facility] Work Phone: Start: 02-15-2024 End: 02-15-2024 Patient encounter procedure [facility] Work Phone: Start: 01-29-2024 Non-patient / Non-visit [facility] Work Phone: Start: 01-24-2024 Non-patient / Non-visit [facility] Work Phone: Start: 01-22-2024 Non-patient / Non-visit [facility] Work Phone: Start: 01-18-2024 End: 01-18-2024 Patient encounter procedure [facility] Work Phone: Start: 01-15-2024 Non-patient / Non-visit [facility] Work Phone: Start: 01-04-2024 Non-patient / Non-visit [facility] Work Phone: Start: 12-18-2023 End: 12-18-2023 ambulatory Shantel Steven Other [facility] Other Start: 12-18-2023 Telephone encounter Shantel Steven [facility] Start: 11-19-2023 End: 11-19-2023 ambulatory Shantel Steven Other [facility] Other Start: 11-19-2023 Telephone encounter Shantel Steven [facility] Start: 10-23-2023 End: 10-23-2023 ambulatory Aziz Bakhous Other [facility] Other Start: 10-23-2023 Office outpatient ne w 30 minutes Aziz Bakhous [facility] [place] Start: 10-22-2023 End: 10-22-2023 ambulatory Shantel Steven Other [facility] Other Start: 10-22-2023 Telephone encounter Shantel Steven [facility] Start: 10-18-2023 End: 10-18-2023 ambulatory Shantel Steven Other [facility] Other Start: 10-18-2023 Office outpatient vi sit 15 minutes Shantel Steven [facility] Start: 09-07-2023 End: 09-07-2023 ambulatory Shantel Steven Other [facility] Other Start: 09-07-2023 Telephone encounter Shantel Steven [facility] Start: 09-04-2023 End: 09-04-2023 ambulatory Shantel Steven Other [facility] Other Start: 09-04-2023 Office outpatient vi sit 25 minutes Shantel Steven [facility] Start: 08-23-2023 End: 08-23-2023 ambulatory Shantel Steven Other [facility] Other Start: 08-23-2023 Telephone encounter Shantel Tenisha [facility] Start: 07-23-2023 End: 07-23-2023 ambulatory Shantel Steven Other [facility] Other Start: 07-23-2023 Telephone encounter Shantel Tenisha [facility] Start: 07-17-2023 End: 07-17-2023 ambulatory Shantel Steven Other [facility] Other Start: 07-17-2023 Office outpatient vi sit 25 minutes Shantel Tenisha [facility] Start: 05-30-2023 End: 05-30-2023 ambulatory Shantel Steven Other [facility] Other Start: 05-30-2023 Telephone encounter Shantel Steven [facility] Start: 05-22-2023 End: 05-22-2023 ambulatory Shantel Steven Other [facility] Other Start: 05-22-2023 Telephone encounter Shantel Steven [facility] Start: 05-16-2023 End: 05-16-2023 ambulatory Shantel Steven Other [facility] Other Start: 05-16-2023 Telephone encounter Shantel Steven [facility] Start: 05-07-2023 End: 05-07-2023 ambulatory Shantel Steven Other [facility] Other Start: 05-07-2023 Telephone encounter Shantel Steven [facility] Start: 04-30-2023 End: 04-30-2023 ambulatory Shantel Steven Other [facility] Other Start: 04-30-2023 Office outpatient vi sit 25 minutes Shantel Steven [facility] Start: 04-25-2023 End: 04-25-2023 ambulatory Shantel Steven Other [facility] Other Start: 04-25-2023 Telephone encounter Shantel Steven [facility] Start: 04-12-2023 End: 04-12-2023 ambulatory Shantel Steven Other [facility] Other Start: 04-12-2023 Telephone encounter Shantel Steven [facility] Start: 03-09-2023 End: 03-09-2023 ambulatory Shantel Steven Other [facility] Other Start: 03-09-2023 Office outpatient vi sit 15 minutes Shantel Steven [facility] Start: 03-07-2023 End: 03-07-2023 ambulatory Shantel Steven Other [facility] Other Start: 03-07-2023 Telephone encounter Shantel Steven [facility] Start: 03-06-2023 End: 03-06-[address] SHANTEL STEVEN Facility:[facility] Start: 03-05-2023 End: 03-05-2023 ambulatory Shantel Steven Other [facility] Other Start: 03-05-2023 Telephone encounter Shantel Steven [facility] Start: 02-26-2023 End: 02-26-2023 ambulatory Shantel Steven Other [facility] Other Start: 02-26-2023 Telephone encounter Shantel Steven [facility] Start: 02-24-2023 End: 02-24-[address] SHANTEL STEVEN Facility:[facility] Start: 02-23-2023 End: 02-23-2023 ambulatory Shantel Steven Other [facility] Other Start: 02-23-2023 Telephone encounter Shantel Steven [facility] Start: 02-20-2023 End: 02-20-2023 ambulatory Shantel Steven Other [facility] Other Start: 02-20-2023 Transitional care luz misha srvc 14 day discharge Shantel Steven [facility] Start: 02-16-2023 End: 02-16-2023 ambulatory Shantel Steven Other [facility] Other Start: 02-16-2023 Telephone encounter Shantel Steven [facility] Start: 02-13-2023 End: 02-14-[address] SHANTEL STEVEN Facility:[facility] Start: 02-02-2023 End: 02-02-2023 ambulatory Shantel Steven Other [facility] Other Start: 02-02-2023 Telephone encounter Shantel Steven [facility] Start: 01-16-2023 End: 01-17-[address] DOCTOR CARMONA Facility:[facility] Start: 01-05-2023 End: 01-05-2023 ambulatory BIN ROJAS Facility:[facility] Start: 01-01-2023 End: 01-02-2023 ambulatory ANALISA BRYANT Facility:[facility] Start: 11-29-2022 End: 11-29-2022 ambulatory Shantel Steven Other [facility] Other Start: 11-29-2022 Telephone encounter Shantel Steven [facility] Start: 11-27-2022 End: 11-27-2022 ambulatory Shantel Steven Other [facility] Other Start: 11-27-2022 Telephone encounter Shantel Steven [facility] Start: 11-24-2022 End: 11-24-2022 ambulatory Shantel Steven Other [facility] Other Start: 01-13-2023 Telephone encounter Shantel Steven [facility] Start: 11-06-2022 ambulatory YAMEL MCCRACKEN Facility :[facility] Start: 09-15-2022 End: 09-16-[address] SHANTEL STEVEN Facility:[facility] Start: 08-04-2022 End: 08-04-2022 Patient encounter procedure Bin SORENSON [facility] [place] Start: 05-02-2022 End: 05-02-[address] SHANTEL STEVEN Facility:[facility] Start: 08-25-2021 Office outpatient ne w 45 minutes Akbar Cui II [facility] Start: 08-09-2017 End: 08-12-2017 Ambulatory PROVIDER UNKNOWN Facility:[facility] Procedures Date Procedure Procedure Detail Performing Clinician Start: 10-25-2024 Viral nucleic acid assay Jorge Luis Camargopa DO Work Phone: Start: 10-25-2024 Plain chest X-ray Jorge Luis Tupa DO Work Phone: Start: 10-22-2024 Urine culture Jorge Luis Tupa DO Work Phone: Start: 10-16-2024 Plain chest X-ray Jorge Luis Tupa DO Work Phone: Start: 07-17-2024 Urine culture MD Shantel Steven [...] NILL Decompression laminectomy Lenore magallon NILL Esophagogastroduodenoscopy M ichmonse NILL Excision of iliac lymph nodes Bin NILL Facetectomy of vertebra [place] ael NILL Foraminotomy Bin NILL History of operative procedure on shoulder Bin NILL History of sigmoid colectomy Bin NILL Total abdominal hyst erectomy with bilateral salpingo-oophorectomy Bin NILL Plan of Treatment Date Care Activity Detail Author Start: 12-10-2024 Patient referral [facility] Work Phone: Start: 10-20-2024 [facility] Start: 10-16-2024 Consultation [facility] Start: 10-16-2024 Hospital admission [facility] Start: 10-16-2024 Referral to college and career counselor [facility] Start: 10-16-2024 Drainage of Bladder with Drainage Device, Via Natural or Artificial Opening Drainage of Bladder with Drainage Device, Via Natural or Artificial Opening [facility] Start: 10-16-2024 Performance of Cardi ac Pacing, Continuous Performance of Cardiac Pacing, Continuous [facility] Start: 10-01-2024 End: 10-01-2024 Patient encounter procedure [facility] Comment on above: Arrived Start: 09-30-2024 End: 09-30-2024 Patient encounter procedure 09/30/2024 1:00 PM EST Office Visit [facility] [place] [address] [facility] [place] [id number] Wanda Patel DO [address] [place] [id number] [facility] [address] Start: 09-04-2024 End: 09-04-2024 Patient encounter procedure 09/04/2024 1:20 PM EDT Office Visit [facility] [place] [address] [place] [phone] Lizett Jacinto NP [address] [place], [place] [facility] [place] [facility] Start: 07-22-2024 End: 07-22-2024 Patient encounter procedure 07/22/2024 1:10 PM EDT Office Visit [facility] [address] [place] [id number] Christel Chacon MD [address] [place] [address] Arrived [facility] Comment on above: Arrived Start: 07-17-2024 Bacteria identified in Urine by Culture [facility] Start: 07-17-2024 [facility] Start: 07-15-2024 End: 07-15-2024 Patient encounter procedure 07/15/2024 1:10 PM EDT Office Visit [facility] [address] [place] [id number] Christel Chacon MD [address] [place] [address] [facility] Start: 2024 Influenza vaccination Influenza Vacc ine (#1) [facility] Start: 07-10-2024 End: 07-10-2024 Patient encounter procedure 07/10/2024 1:40 PM EDT Office Visit [facility] [place] [address] [place] [address] Lizett Jacinto NP [address] [place], [place] Arrived [facility] [address] [facility] Comment on above: Arrived Start: 06-25-2024 Patient referral [facility] Work Phone: Start: 06-16-2024 Patient referral [facility] Work Phone: Start: 05-07-2024 Patient referral [facility] Work Phone: Start: 05-04-2024 Blood Culture 1 Blood Culture 1 [facility] Start: 02-15-2024 Patient referral [facility] Work Phone: Comprehensive metabo lic 2000 panel - Serum or Plasma [facility] CT Abdomen and Pelvi s WO contrast [facility] Microalbumin [Mass/volume] in Urine [facility] Patient Education [facility] Work Phone: Patient referral [facility] Work Phone: Renal function 1999 panel - Serum or Plasma [facility] Renal function 1999 panel - Serum or Plasma [facility] Immunizations Immunization Date Immunization Notes Care Provider Fa cility 01-18-2024 Pneumococcal Conjugate Vaccine, 20 valent [facility] 09-04-2023 influenza, high dose seasonal, preservative-free Shantel Steven Other [facility] Other 09-04-2023 influenza virus vaccine, unspecified formulation [facility] 02-04-2021 COVID-19 mRNA, Comirnaty (Pfizer) [facility] 01-21-2021 COVID-19 mRNA, Comirnaty (Pfizer) [facility] 10-09-2018 influenza virus vaccine, split virus (incl. purified surface antigen) Shantel Steven Other [facility] Other 10-09-2018 influenza virus vaccine, unspecified formulation [facility] NEGATED: Highlighted row has not occurred!10-17-2024 influenza, high dose seasonal, preservative-free Jorge Luis Zavala DO Work Phone: [facility] NEGATED: Highlighted row has not occurred!08-21-2019 influenza virus vaccine, split virus (incl. purified surface antigen) Shantel Steven Other [facility] Other Payers Date Payer Category Payer Medicare [id number] 2024 Self-pay [id number] 2023 Medicare [employer] MED[employer]AGE [facility] MEDICARE [id number] 2023-Present [address] [place] [id number] 2023 Medicare (Managed Care) [employer]ARE ADVANTAGE [id number] 1959 Medicare [id number] 1959 Self-pay [id number] 1945 Unknown [id number] 2.16.840.1.350776.3.579. 2.593 1946 Unknown [id number] 2.16840.1.820274.3.579. 2.593 1946 Unknown [id number] 2.16.840.1.438566.3.579. 2.593 1946 Unknown [id number] 2.16.840.1.030372.3.579. 2.593 1946 Unknown [id number] 2.16.840.1.972691.3.579. 2.593 1946 Unknown [id number] 2.16.840.1.020565.3.579. 2.593 1946 Unknown [id number] 2.16.840.1.228465.3.579. 2.593 1946 Unknown [id number] 2.16.840.1.436444.3.579. 2.593 1946 Unknown [id number] 2.16840.1.084828.3.579. 2.593 1946 Unknown [id number] 2.840.1.139304.3.579. 2.1259 1946 Unknown [id number] 2.16840.1.610432.3.579. 2.1259 1946 Unknown [id number] 2.16840.1.125803.3.579. 2.1259 1946 Unknown [id number] 2.16840.1.822921.3.579. 2.727 1946 Unknown [id number] 2.840.1.627408.3.579. 2.727 1946 Unknown [id number] 2.16.840.1.134488.3.579. 2.727 1946 Unknown [id number] 2.16.840.1.504244.3.579. 2.727 1946 Unknown [id number] 2.16.840.1.362000.3.579. 2.727 Unknown Unknown [id number] 2.16840.1.510514.3.579. 2.531 Unknown [id number] 2.16.840.1.357049.3.579. 2.531 Unknown [id number] 2.16.840.1.226592.3.579. 2.531 Unknown [id number] 2.16.840.1.434064.3.579. 2.531 Unknown [id number] 2.16.840.1.012509.3.579. 2.531 Unknown [id number] 2.16.840.1.610784.3.579. 2.531 Social History Date Type Detail Facility Start: 07-22-2024 End: 10-01-2024 Sex Assigned At [facility] Other Start: 08-04-2022 End: 10-25-2024 Tobacco smoking status Ex-smoker (finding) [facility] [place] Tobacco smoking status Never [facility] [place] Start: 1945 Sex Assigned At Female [facility] History of tobacco use Current smoker [facility] History of tobacco use Cigarette Smoker N [facility] Start: 07-03-2024 Tobacco use and exposure Smokeless tobacco non-user [facility] Start: 07-22-2024 End: 10-01-2024 Alcoholic beverage intake Lifetime non-drinker (finding) [facility] Start: 07-22-2024 End: 10-01-2024 History of Social function [facility] Start: 07-08-2024 Alcohol Comment caffeine: 1-2 cups per day [facility] Start: 1945 Sex assigned at Not on file N [facility] Start: 12-26-2024 End: 01-21-2025 Sex Female (finding) [facility] Medical Equipment Procedure Code Equipment Code Equipment Origin al Text Equipment Identifier Dates Blood Sugar Diagnostic (True Metrix Glucose Test Strip) strip Start: 03-31-2024 Pen Needle, Diab etic (Comfort Ez Pen [place]) 33 gauge x 5/32 needle Start: 03-25-2024 Blood Sugar Diagnostic (True Metrix Glucose Test Strip) strip Start: 03-31-2024 End: 03-31-2024 Blood Sugar Diagnostic (True Metrix Glucose Test Strip) strip Start: 03-31-2024 Pen Needle, Diab etic (Comfort Ez Pen [place]) 33 gauge x 5/32 needle Start: 03-25-2024 Blood Sugar Diagnostic (True Metrix Glucose Test Strip) strip Start: 03-31-2024 End: 03-31-2024 Blood Sugar Diagnostic (True Metrix Glucose Test Strip) strip Start: 03-31-2024 Pen Needle, Diab etic (Comfort Ez Pen [place]) 33 gauge x 5/32 needle Start: 03-25-2024 Blood Sugar Diagnostic (True Metrix Glucose Test Strip) strip Start: 03-31-2024 End: 03-31-2024 Blood Sugar Diagnostic (True Metrix Glucose Test Strip) strip Start: 03-31-2024 Pen Needle, Diab etic (Comfort Ez Pen [place]) 33 gauge x 5/32 needle Start: 03-25-2024 Blood Sugar Diagnostic (True Metrix Glucose Test Strip) strip Start: 03-31-2024 End: 03-31-2024 Blood Sugar Diagnostic (True Metrix Glucose Test Strip) strip Start: 03-31-2024 Pen Needle, Diab etic (Comfort Ez Pen [place]) 33 gauge x 5/32 needle Start: 03-25-2024 Blood Sugar Diagnostic (True Metrix Glucose Test Strip) strip Start: 03-31-2024 End: 03-31-2024 Blood Sugar Diagnostic (True Metrix Glucose Test Strip) strip Start: 03-31-2024 Pen Needle, Diab etic (Comfort Ez Pen [place]) 33 gauge x 5/32 needle Start: 03-25-2024 Blood Sugar Diagnostic (True Metrix Glucose Test Strip) strip Start: 03-31-2024 End: 03-31-2024 Blood Sugar Diagnostic (True Metrix Glucose Test Strip) strip Start: 03-31-2024 Pen Needle, Diab etic (Comfort Ez Pen [place]) 33 gauge x 5/32 needle Start: 03-25-2024 Blood Sugar Diagnostic (True Metrix Glucose Test Strip) strip Start: 03-31-2024 End: 03-31-2024 Blood Sugar Diagnostic (True Metrix Glucose Test Strip) strip Start: 03-31-2024 Pen Needle, Diab etic (Comfort Ez Pen [place]) 33 gauge x 5/32 needle Start: 03-25-2024 Blood Sugar Diagnostic (True Metrix Glucose Test Strip) strip Start: 03-31-2024 End: 03-31-2024 Blood Sugar Diagnostic (True Metrix Glucose Test Strip) strip Start: 03-31-2024 Pen Needle, Diab etic (Comfort Ez Pen [place]) 33 gauge x 5/32 needle Start: 03-25-2024 Blood Sugar Diagnostic (True Metrix Glucose Test Strip) strip Start: 03-31-2024 End: 03-31-2024 Pen Needle, Diab etic (Comfort Ez Pen [place]) 33 gauge x 5/32 needle Start: 03-25-2024 Blood Sugar Diagnostic (True Metrix Glucose Test Strip) strip Start: 03-31-2024 End: 10-16-2024 Blood Sugar Diagnostic (True Metrix Glucose Test Strip) strip Start: 03-31-2024 End: 03-31-2024 Pen Needle, Diab etic (Comfort Ez Pen [place]) 33 gauge x 5/32 needle Start: 03-25-2024 Blood Sugar Diagnostic (True Metrix Glucose Test Strip) strip Start: 03-31-2024 End: 10-16-2024 Blood Sugar Diagnostic (True Metrix Glucose Test Strip) strip Start: 03-31-2024 End: 03-31-2024 Pen Needle, Diab etic (Comfort Ez Pen [place]) 33 gauge x 5/32 needle Start: 03-25-2024 Blood Sugar Diagnostic (True Metrix Glucose Test Strip) strip Start: 03-31-2024 End: 10-16-2024 Blood Sugar Diagnostic (True Metrix Glucose Test Strip) strip Start: 03-31-2024 End: 03-31-2024 Goals Date Patient Goal Desired Activity /State Functional Status Date Assessment Result Facility 11-04-2024 Functional Status N/A [facility] 10-20-2024 Functional status Patient at Baseline [facility] Work Phone: 08-04-2022 Functional Status N/A [facility] Mental Status Date Assessment Result Facility 10-20-2024 Cognitive function Cognitive Sta tus Patient at Baseline [facility] Work Phone: Clinical Notes 08-25-2021 to 01-07-2025 Telephone Encounter - Christel Chacon MD - 01/07/2025 12:08 PM ESTTelephone Encounter - Christel Chacon MD - 01/07/2025 12:08 PM ESTTelephone Encounter - Jeanne Chacon - 01/07/2025 11:26 AM EST Note Date & Type Note Facility 01-07-2025 Telephone encounter Note prn [facility] 01-07-2025 Miscellaneous Notes prn Called pt/spoke with spouse/he said she does not want to schedule with Dr Hurd/if she changes her mind she will call us back. documented in this encounter [facility] 01-07-2025 Telephone encounter Note Called pt/spoke with spouse/he said she does not want to schedule with Dr Hurd/if she changes her mind she will call us back. [facility] 01-06-2025 Telephone encounter Note Left a message for pt to call Dr Chacon's office back to see if pt is planning on scheduling with Dr Hurd for sleep study. [facility] 01-06-2025 Miscellaneous Notes Left a message for pt to call Dr Chacon's office back to see if pt is planning on scheduling with Dr Hurd for sleep study. documented in this encounter [facility] 12-02-2024 Note Cardiovascular Medic in[facility] SUBJECTIVE Patient is here today for follow-up. She has legs edema HPI 12/02/2024 Patient is here today for follow-up visit. She states that she has been doing good. After Peacock catheter removal she had urinary incontinence for about a month or so but now she is doing well and she states that she has good urine output with appropriate emptying. She follows with urology. The patient is active and she cleans her house which consisted of 8 rooms every day but she does not do vacuuming. She denies exertional dyspnea, orthopnea or paroxysmal nocturnal dyspnea. She denies dizziness or palpitations. Recently she has been having some legs edema. She does not check her blood pressure at home. She reports following low-salt diet. She does not weigh herself. 10/31/2024 Joe Call is a 79 y.o. female here for follow-up. Patient has history of HFpEF, paroxysmal atrial fibrillation, hypertension, diabetes mellitus type 2, chronic kidney disease, remote history of breast cancer status postchemotherapy and radiation She was recently in [facility] 10/16/2024, she presented with fatigue, lightheadedness and diarrhea. She was found to be in junctional escape rhythm with heart rate in the 20s and she was started on transcutaneous pacing. In ED she was found to be hyperkalemic with potassium of 6.2. Transvenous pacer was placed and the potassium was corrected. Her heart rate recovered and the temporary pacemaker was removed. Potassium at that time was 5. Patient was also prior to that on both metoprolol and Cardizem which were held. She was also volume overloaded and she was diuresed. She was discharged home 10/20/2024 on Lasix 40 mg daily in addition to Xarelto, and Cardizem 120 daily, and atorvastatin 20 mg daily as cardiac medications. Metoprolol was discontinued She is here today for follow-up visit. She has been taking Cardizem, Xarelto and atorvastatin. She has not been taking Lasix. She has Peacock catheter and she states that she has been been making a lot of urine. Clinically she has been doing very well and she denies any chest pain or shortness of breath at rest or with exertion. She denies orthopnea or paroxysmal nocturnal dyspnea or dizziness or palpitations or legs edema. She did not have any blood test since discharge from the hospital because the lab could not obtain a sample from her-difficult stick. She reports that her weight has been stable since discharge. 10/08/24 After last visit we had reduced her lasix from 40mg BID to 40mg daily along with hold her lisinopril due to renal dysfunction. She reduced her lasix but did not hold her lisinopril. Her renal function has improved from 2.4 to 1.9. She states she is feeling great, better than she has in a long time. 09/03/2024 She is feeling better since last [...] to her PCP about her blood sugars. 08/20/2024 PMHx: HFpEF, PAF, DMII, CKD III, HTN, hypothyroidism, mild carotid stenosis, breast CA s/p chemo/radiation +25years ago There is some confusion regarding her diuretic as there has been a lot of changes between lasix and bumex in the past few months. Patient here for follow up [facility]. Her diuretic was switched again back to [...] Oz of fluid a day per the college and career counselor. Her most recent discharge on 07/25/24 she [...] BP at home. She has noticed occasional horsen (more content not included)... [facility] 11-04-2024 Hospital Discharg e instructions Patient Education 11/04/2024 11:01:25 Acute Urinary Retention, Female Acute Urinary Retention, Female Acute urinary retention is a condition in which a person is unable to pass urine or can only pass a little urine. This condition can happen suddenly and last for a short time. If left untreated, it can become long-term (chronic) and result in kidney damage or other serious complications. What are the causes? This condition may be caused by: Obstruction or narrowing of the tube that drains the bladder (urethra). This may be caused by surgery, problems with nearby organs, or injury to the bladder or urethra. Problems with the nerves in the bladder. Pelvic organ prolapse. Tumors in the area of the pelvis, bladder, or urethra. Vaginal childbirth. Bladder or urinary tract infection. Constipation. Certain medicines. What increases the risk? This condition is more likely to develop in women over age 50. Other chronic health conditions can increase the risk of acute urinary retention. These include: Diseases such as multiple sclerosis. Spinal cord injuries. Diabetes. Degenerative cognitive conditions, such as delirium or dementia. Psychological conditions. A woman may hold her urine due to trauma or because she does not want to use the bathroom. History of preexisting urinary retention. History of prior pelvic surgery, incontinence surgery, or radical pelvic surgery. What are the signs or symptoms? Symptoms of this condition include: Trouble urinating. Pain in the lower abdomen. How is this diagnosed? This condition is diagnosed based on a physical exam and your medical history. You may also have other tests, including: An ultrasound of the bladder or kidneys or both. Blood tests. A urine analysis. Additional tests may be needed, such as a CT scan, MRI, and kidney or bladder function tests. How is this treated? Treatment for this condition may include: Medicines. Placing a thin, sterile tube (catheter) into the bladder to drain urine out of the body. This is called an indwelling urinary catheter. After it is inserted, the catheter is held in place with a small balloon that is filled with sterile water. Urine drains from the catheter into a collection bag outside of the body. Behavioral therapy. Treatment for other conditions. If needed, you may be treated in the hospital for kidney function problems or to manage other complications. Follow these instructions at home: Medicines Take [id number] and prescription medicines only as told by your health care provider. Avoid certain medicines, such as decongestants, antihistamines, and some prescription medicines. Do not take any medicine unless your health care provider approves. If you were prescribed an antibiotic medicine, take it as told by your health care provider. Do not stop using the antibiotic even if you start to feel better. General instructions Do not use any products that contain nicotine or tobacco. These products include cigarettes, chewing tobacco, and vaping devices, such as e-cigarettes. If you need help quitting, ask your health care provider. Drink enough fluid to keep your urine pale yellow. If you have an indwelling urinary catheter, follow the instructions from your health care provider. Monitor any changes in your symptoms. Tell your health care provider about any changes. If instructed, monitor your blood pressure at home. Report changes as told by your health care provider. Keep all follow-up visits. This is important. Contact a health care provider if: You have uncomfortable bladder contractions that you cannot control (spasms). You leak urine with the spasms. Get help right away if: You have chills or a fever. You have blood in your urine. You have a catheter and the following happens: ?Your catheter stops draining urine. ?Your catheter falls out. Summary Acute urinary retention is a condition in which a person is unable to pass urine or can only pass a little urine. If left untreated, this can result in kidney damage or other serious complications. One cause of this condition may be obstruction or narrowing of the tube that drains the bladder (urethra). This may be caused by surgery, problems with nearby organs, or injury to the bladder or urethra. Treatment may include medicines and placement of an indwelling urinary catheter. Monitor any changes in your symptoms. Tell your health care provider about any changes. This information is not intended to replace advice given to you by your health care provider. Make sure you discuss any questions you have with your health care provider. Document Revised: 07/20/2021 Document Reviewed: 07/20/2021 [employer] Patient Education 2023 [employer]. Follow Up Care 10/20/2024 13:37:01 With:FRANCHESCA PERAZA, TIRSOL Address: [place] [place] [address] Business (1) When:6 weeks [facility] 11-04-2024 Note Patient Education Obstetrics and Gynecology Acute Urinary Retention, Female Acute urinary retention is a condition in which a person is unable to pass urine or can only pass a little urine. This condition can happen suddenly and last for a short time. If left untreated, it can become long-term (chronic) and result in kidney damage or other serious complications. What are the causes? This condition may be caused by: ??? Obstruction or narrowing of the tube that drains the bladder (urethra). This may be caused by surgery, problems with nearby organs, or injury to the bladder or urethra. ??? Problems with the nerves in the bladder. ??? Pelvic organ prolapse. ??? Tumors in the area of the pelvis, bladder, or urethra. ??? Vaginal childbirth. ??? Bladder or urinary tract infection. ??? Constipation. ??? Certain medicines. What increases the risk? This condition is more likely to develop in women over age 50. Other chronic health conditions can increase the risk of acute urinary retention. These include: ??? Diseases such as multiple sclerosis. ??? Spinal cord injuries. ??? Diabetes. ??? Degenerative cognitive conditions, such as delirium or dementia. ??? Psychological conditions. A woman may hold her urine due to trauma or because she does not want to use the bathroom. ??? History of preexisting urinary retention. ??? History of prior pelvic surgery, incontinence surgery, or radical pelvic surgery. What are the signs or symptoms? Symptoms of this condition include: ??? Trouble urinating. ??? Pain in the lower abdomen. How is this diagnosed? This condition is diagnosed based on a physical exam and your medical history. You may also have other tests, including: ??? An ultrasound of the bladder or kidneys or both. ??? Blood tests. ??? A urine analysis. ??? Additional tests may be needed, such as a CT scan, MRI, and kidney or bladder function tests. How is this treated? Treatment for this condition may include: ??? Medicines. ??? Placing a thin, sterile tube (catheter) into the bladder to drain urine out of the body. This is called an indwelling urinary catheter. After it is inserted, the catheter is held in place with a small balloon that is filled with sterile water. Urine drains from the catheter into a collection bag outside of the body. ??? Behavioral therapy. ??? Treatment for other conditions. If needed, you may be treated in the hospital for kidney function problems or to manage other complications. Follow these instructions at home: Medicines ??? Take [id number] and prescription medicines only as told by your health care provider. Avoid certain medicines, such as decongestants, antihistamines, and some prescription medicines. Do not take any medicine unless your health care provider approves. ??? If you were prescribed an antibiotic medicine, take it as told by your health care provider. Do not stop using the antibiotic even if you start to feel better. General instructions ??? Do not use any products that contain nicotine or tobacco. These products include cigarettes, chewing tobacco, and vaping devices, such as e-cigarettes. If you need help quitting, ask your health care provider. ??? Drink enough fluid to keep your urine pale yellow. ??? If you have an indwelling urinary catheter, follow the instructions from your health care provider. ??? Monitor any changes in your symptoms. Tell your health care provider about any changes. ??? If instructed, monitor your blood pressure at home. Report changes as told by your health care provider. ??? Keep all follow-up visits. This is important. Contact a health care provider if: ??? You have uncomfortable bladder contractions that you cannot control (spasms). ??? You leak urine with the spasms. Get help right away if: ??? You have chills or a fever. ??? You have blood in your urine. ??? You have a catheter and the following happens: ? Your catheter stops draining urine. ? Your catheter falls out. Summary ??? Acute urinary retention is a condition in which a person is unable to pass urine or can only pass a little urine. If left untreated, this can result in kidney damage or other serious complications. ??? One cause of this condition may be obstruction or narrowing of the tube that drains the bladder (urethra). This may be caused by surgery, problems with nearby organs, or injury to the bladder or urethra. ??? Treatment may include medicines and placement of an indwelling urinary catheter. ??? Monitor any changes in your symptoms. Tell your health care provider about any changes. This information is not intended to replace advice given to you by your health care provider. Make sure you discuss any questions you have with your health care provider. Document Revised: 07/20/2021 Document Reviewed: 07/20/2021 [employer] Patient Education ? 2023 [employer]. [facility] 11-03-2024 Evaluation note Diagnosis Onset Date Resolution A-fib acute November 03, 2024 11:24am Bradycardia acute October 11:24am CKD (chronic kidney disease), stage IV acute October 11:24am Lumbar spondylosis acute Decemb er 2023 11:24am Type 2 diabetes mellitus with diabetic chronic kidney disease acute November 03, 2024 11:24am CKD (chronic kidney disease) stage 3, GFR 30-59 ml/min acute November 11, 2024 1:26pm Hyperlipidemia acute October 142023 1:26pm Hypertensive chronic kidney disease with stage 1 through stage 4 chronic ki acute Decem vanessa 2023 1:26pm Secondary hyperparathyroidism acute October 1:26pm Type 2 diabetes mellitus with diabetic chronic kidney disease acute November 11, 2024 1:26pm Abdominal swelling, generalized acute December 09, 2024 1:24pm Anxiety acute December 09, 2024 1:24pm Bloated abdomen acute November 132024 1:24pm GERD (gastroesophageal reflux disease) acute December 09, 2024 1:24pm Lumbar degenerative disc disease acute December 09, 2024 1:24pm Abdominal swelling, generalized acute December 26, 2024 12:52pm Benign essential tremor acute F ebruary 2024 12:52pm Bloated abdomen acute December 26, 2024 12:52pm GERD (gastroesophageal reflux disease) acute December 26, 2024 12:52pm Lumbar degenerative disc disease acute December 26, 2024 12:52pm Seborrhea capitis in adult acute December 26, 2024 12:52pm Type 2 diabetes mellitus with diabetic chronic kidney disease acute December 26, 2024 12:52pm Acute on chronic diastolic CHF (congestive heart failure) acute January 06, 2025 3:21pm CKD (chronic kidney disease), stage IV acute December 3:21pm GERD (gastroesophageal reflux disease) acute January 06, 2025 3:21pm Lumbar degenerative disc disease acute January 06, 2025 3:21pm Type 2 diabetes mellitus with hyperglycemia, with long-term current use of acute uar 2024 3:21pm [facility] Work Phone: 1(437) 772-558712-23-2024 Evaluation note* Diagnosis Onset Date Resolution Status Admit Date A-fib acute November 03, 2024 11:24am Bradycardia acute October 11:24am CKD (chronic kidney disease) , stage IV acute November 03, 2 024 11:24am Lumbar spondylosis acute Decemb er 2023 11:24am Type 2 diabetes mellitus wit h diabetic chronic kidney disease acute November 03, 2024 11:24am CKD (chronic kidney disease) stage 3, GFR 30-59 ml/min acute October 1:26pm Hyperlipidemia acute October 142023 1:26pm Hypertensive chronic kidney disease with stage 1 through stage 4 chronic ki acute November 11, 2 024 1:26pm Secondary hyperparathyroidism acute November 11, 2024 1:26pm Type 2 diabetes mellitus wit h diabetic chronic kidney disease acute November 11, 2024 1:26pm Abdominal swelling, generalized acut e December 09, 2024 1:24pm Anxiety acute December 09, 2024 1:24pm Bloated abdomen acute November 132024 1:24pm GERD (gastroesophageal reflu x disease) acute December 09 1:24pm Lumbar degenerative disc disease acu te December 09, 2024 1:24pm Abdominal swelling, generalized acut e December 26, 2024 12:52pm Benign essential tremor acute F ebruary 2024 12:52pm Bloated abdomen acute December 26, 2024 12:52pm GERD (gastroesophageal reflu x disease) acute December 26, 025 12:52pm Lumbar degenerative disc disease acu te December 26, 2024 12:52pm Seborrhea capitis in adult acute December 26, 2024 12:52pm Type 2 diabetes mellitus wit h diabetic chronic kidney disease acute December 26, 2024 12:52pm Acute on chronic diastolic C HF (congestive heart failure) acute Febru 2024 3:21pm CKD (chronic kidney disease) , stage IV acute January 06, 2 025 3:21pm GERD (gastroesophageal reflu x disease) acute January 06 025 3:21pm Lumbar degenerative disc disease acu te January 06, 2025 3:21pm Type 2 diabetes mellitus wit h hyperglycemia, with long-term current use of acute January 06, 025 3:21pm Acute on chronic diastolic C HF (congestive heart failure) acute January 14, 2025 10:00am C. difficile diarrhea acute Jan 10:00am GERD (gastroesophageal reflu x disease) acute January 14, 2025 10:00am Type 2 diabetes mellitus wit h hyperglycemia, with long-term current use of acute January 14, 2025 10:00am [facility] Work Phone: 1(741) 602-510712-20-2024 NoteCardiovascular Medicine [facility] SUBJECTIVE Patient is here today for hospital follow-up. She was in [facility] with bradycardia. HPI 10/31/2024 Joe Call is a 79 y.o. female here for follow-up. Patient has history of HFpEF, paroxysmal atrial fibrillation, hypertension, diabetes mellitus type 2, chronic kidney disease, remote history of breast cancer status postchemotherapy and radiation She was recently in [facility] 10/16/2024, she presented with fatigue, lightheadedness and diarrhea. She was found to be in junctional escape rhythm with heart rate in the 20s and she was started on transcutaneous pacing. In ED she was found to be hyperkalemic with potassium of 6.2. Transvenous pacer was placed and the potassium was corrected. Her heart rate recovered and the temporary pacemaker was removed. Potassium at that time was 5. Patient was also prior to that on both metoprolol and Cardizem which were held. She was also volume overloaded and she was diuresed. She was discharged home 10/20/2024 on Lasix 40 mg daily in addition to Xarelto, and Cardizem 120 daily, and atorvastatin 20 mg daily as cardiac medications. Metoprolol was discontinued She is here today for follow-up visit. She has been taking Cardizem, Xarelto and atorvastatin. She has not been taking Lasix. She has Peacock catheter and she states that she has been been making a lot of urine. Clinically she has been doing very well and she denies any chest pain or shortness of breath at rest or with exertion. She denies orthopnea or paroxysmal nocturnal dyspnea or dizziness or palpitations or legs edema. She did not have any blood test since discharge from the hospital because the lab could not obtain a sample from her-difficult stick. She reports that her weight has been stable since discharge. 10/08/24 After last visit we had reduced her lasix from 40mg BID to 40mg daily along with hold her lisinopril due to renal dysfunction. She reduced her lasix but did not hold her lisinopril. Her renal function has improved from 2.4 to 1.9. She states she is feeling great, better than she has in a long time. 09/03/2024 She is feeling better since last [...] to her PCP about her blood sugars. 08/20/2024 PMHx: HFpEF, PAF, DMII, CKD III, HTN, hypothyroidism, mild carotid stenosis, breast CA s/p chemo/radiation +25years ago There is some confusion regarding her diuretic as there has been a lot of changes between lasix and bumex in the past few months. Patient here for follow up [facility]. Her diuretic was switched again back to [...] Oz of fluid a day per the college and career counselor. Her most recent discharge on 07/25/24 she [...] diarrhea Chronic low back pain Depressive disorder Diabe (more content not included)...[facility] 10-16-2024 Evaluation note* Diagnosis Onset Date Resolution Status Admit Date A-fib acute October 16, 2024 3:52pm Back pain with history of sp inal surgery acute October 16 3:52pm CKD (chronic kidney disease) stage 3, GFR 30-59 ml/min acute Decemb er 2023 3:52pm Diabetes mellitus acute Decembe r 2023 3:52pm GERD (gastroesophageal reflu x disease) acute October 16 3:52pm Hyperlipidemia acute October 162023 3:52pm Hypertension acute October 3:52pm Hypertensive chronic kidney disease with stage 1 through stage 4 chronic ki acute October 16, 2024 3:52pm Hypomagnesemia acute October 162023 3:52pm Obstructive uropathy acute Dece mber 2023 3:52pm Type 2 diabetes mellitus wit h diabetic chronic kidney disease acute October 16, 2024 3:52pm Type 2 diabetes mellitus wit h hyperglycemia, with long-term current use of acute October 16 3:52pm Acute hyperkalemia resolved Decemb er 2023 3:52pm Acute kidney injury superimp osed on CKD resolved October 16 3:52pm AV junctional bradycardia resolved October 16, 2024 3:52pm Delirium resolved October 16, 2024 3:52pm CHF (congestive heart failure) delet ed October 16, 2024 3:52pm Dehydration deleted October 16, 2024 3:52pm A-fib acute November 03, 2024 11:24am Bradycardia acute October 11:24am CKD (chronic kidney disease) , stage IV acute November 03, 2 024 11:24am Lumbar spondylosis acute Decemb er 2023 11:24am Type 2 diabetes mellitus wit h diabetic chronic kidney disease acute November 03, 2024 11:24am CKD (chronic kidney disease) stage 3, GFR 30-59 ml/min acute Decemb er 2023 1:26pm Hyperlipidemia acute October 142023 1:26pm Hypertensive chronic kidney disease with stage 1 through stage 4 chronic ki acute October 1:26pm Secondary hyperparathyroidism acute November 11, 2024 1:26pm Type 2 diabetes mellitus wit h diabetic chronic kidney disease acute November 11, 2024 1:26pm Abdominal swelling, generalized acut e December 09, 2024 1:24pm Anxiety acute December 09, 2024 1:24pm Bloated abdomen acute November 132024 1:24pm GERD (gastroesophageal reflu x disease) acute December 09 1:24pm Lumbar degenerative disc disease acu te December 09, 2024 1:24pm [facility] Work Phone: 1(100) 803-653011-27-2024 NoteCardiovascular Medicine [facility] SUBJECTIVE Chief Complaint Patient presents with Congestive Heart Failure Hypertension Atrial Fibrillation Joe Call is a 79 y.o. female here for follow-up. HPI PMHx: HFpEF, PAF, DMII, CKD III, HTN, hypothyroidism, mild carotid stenosis, breast CA s/p chemo/radiation +25years ago There is some confusion regarding her diuretic as there has been a lot of changes between lasix and bumex in the past few months. Patient here for follow up [facility]. Her diuretic was switched again back to [...] Oz of fluid a day per the college and career counselor. Her most recent discharge on 07/25/24 she [...] to her PCP about her blood sugars. 10/08/24 After last visit we had reduced her lasix from 40mg BID to 40mg daily along with hold her lisinopril due to renal dysfunction. She reduced her lasix but did not hold her lisinopril. Her renal function has improved from 2.4 to 1.9. She states she is feeling great, better than she has in a long time. Patient Active Problem List Diagnosis Aortic valve disorder Benign essential hypertension Carotid artery stenosis Coronary atherosclerosis Diverticulitis of colon History of malignant neoplasm of breast Intestinal disaccharidase deficiency Lymphedema of left arm Morbid obesity ([facility]) Obstructive sleep apnea syndrome Paroxysmal supraventricular tachycardia ([facility]) Psoriasis Type 2 diabetes mellitus without complication ([facility]) Mixed hyperlipidemia Diastolic dysfunction Carotid bruit Chronic diarrhea Chronic low back pain Depressive disorder Diabetes mellitus ([facility]) Diabetic neuropathy ([facility]) Exocrine pancreatic insufficiency Gastroesophageal reflux disease Hypertension Hypomagnesemia Hypothyroidism Stage 3 chronic kidney disease ([facility]) Hyperlipidemia Atrial fibrillation ([facility]) Paroxysmal atrial fibrillation ([facility]) Abdominal swelling, generalized Acute on chronic diastolic CHF (congestive heart failure) ([facility]) Anxiety Back pain with history of spinal surgery Cervical disc disease Chalazion of right eye Dyspnea Hordeolum externum (stye) Immunization due Lactose intolerance intermission coordinator (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 insulin ([facility]) Lumbar degenerative disc disease Lumbar spondylosis Lymph edema Macular degeneration Memory changes Osteoarthritis Secondary hyperparathyroidism ([facility]) Stress incontinence of urine Thrush of mouth and esophagus ([facility]) Urinary incontinence UTI (urinary tract infection) Yeast cystitis CARMELO (acute kidney injury) ([facility]) Tremor Acquired hammer toe of right foot Ataxia Balance disorder CHF (congestive heart failure) ([facility]) Dehydration Diabetic foot ([facility]) Diabetic peripheral neuropathy associated with type 2 diabetes mellitus ([facility]) Disability of walking Essential tremor LPRD (laryngopharyngeal reflux disease) Mass of right axilla Paresthesia Throat tightness Type 2 diabetes mellitus with hyperglycemia, with long-term current use of insulin ([facility]) Venous insufficiency (chronic) (peripheral) Debility Past Medical History: Diagnosis Date Atrial fibrillation ([facility]) Cancer ([facility]) Carotid artery stenosis Coronary (more content not included)...[facility] 10-08-2024 NotePatient here for 1 mo follow up chronic diastolic heart failure, hypertension, [...] tremors. All other systems reviewed and are negative.[facility] 10-01-2024 History of Present illness Narrative* Christel Chacon MD - 10/01/2024 9:50 AM EST Subjective Patient ID: Jeo Call is a 79 y.o. female who [...] on chronic diastolic CHF (congestive heart failure) ([facility]) 05/20/2024 CARMELO (acute kidney injury) ([facility]) 05/20/2024 Anxiety 05/20/2024 Aortic valve disorder 08/20/2012 Back pain with history of spinal surgery 05/20/2024 Benign essential hypertension ([facility]) 04/02/2012 Carotid artery stenosis 07/20/2022 Carotid bruit 01/16/2023 Cervical disc disease 05/20/2024 Chalazion of right eye 05/20/2024 Chronic diarrhea 01/16/2023 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 Chronic low back pain 01/16/2023 Coronary atherosclerosis ([facility]) 03/20/2012 Depressive disorder ([facility]) 01/16/2023 Diabetes mellitus ([facility]) 07/03/2024 Diabetic foot ([facility]) 07/03/2024 Diabetic neuropathy ([facility]) 01/16/2023 Diabetic peripheral neuropathy associated with type 2 diabetes mellitus ([facility]) 07/03/2024 Diastolic dysfunction 09/05/2022 Disability of walking 07/03/2024 Diverticulitis of colon 03/20/2012 Dyspnea 05/20/2024 Exocrine pancreatic insufficiency ([facility]) 01/16/2023 Gastroesophageal reflux disease 01/16/2023 History of malignant neoplasm of breast 03/20/2012 Hordeolum externum (stye) 05/20/2024 Hyperlipidemia ([facility]) 07/03/2024 Hypertension ([facility]) 01/16/2023 Near syncope 07/03/2024 Hypomagnesemia 01/16/2023 Hypothyroidism ([facility]) 01/16/2023 Lumbar degenerative disc disease 05/20/2024 Lumbar spondylosis 05/20/2024 Lymph edema 05/20/2024 Lymphedema of left arm 03/20/2012 Macular degeneration 05/20/2024 Memory changes 05/20/2024 Morbid obesity ([facility]) 07/20/2022 Obstructive sleep apnea syndrome 03/20/2012 Paroxysmal atrial fibrillation ([facility]) 03/20/2012 Paroxysmal supraventricular tachycardia ([facility]) 03/26/2012 Psoriasis ([facility]) 03/20/2012 Secondary hyperparathyroidism ([facility]) 05/20/2024 Stage 3 chronic kidney disease (HCC) ([facility]) 01/16/2023 Hypertensive chronic kidney disease with stage 1 through stage 4 chronic kidney disease, or unspecified chronic kidney disease ([facility]) 07/03/2024 Thrush of mouth and esophagus ([facility] [facility]) 05/20/2024 Tremor 06/18/2024 Type 2 diabetes mellitus with hyperglycemia, with long-term current use of insulin ([facility]) 07/03/2024 Venous insufficiency (chronic) (peripheral) 07/03/2024 Essential tremor 07/08/2024 Balance disorder 07/08/2024 Ataxia 07/08/2024 Diabetic peripheral neuropathy ([facility]) 07/08/2024 Paresthesia 07/08/2024 Sensory ataxia 07/10/2024 Debility 07/10/2024 Weakness 07/10/2024 Paresthesias 07/10/2024 JED (obstructive sleep apnea) 07/22/2024 LPRD (laryngopharyngeal reflux disease) 07/22/2024 Throat tightness 07/22/2024 Resolved Ambulatory Problems Diagnosis Date Noted Acute pain of left shoulder 07/03/2024 Lactose intolerance 05/20/2024 [facility] (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 insulin ([facility]) 05/20/2024 Pharyngitis 07/03/2024 CKD (chronic kidney disease), stage IV ([facility]) 07/03/2024 Stress incontinence of urine 05/20/2024 Urinary incontinence 05/20/2024 UTI (urinary tract infection) 05/20/2024 Yeast cystitis 05/20/2024 Past Medical History: Diagnosis Date Anemia Breast cancer ([facility]) Coronary heart disease ([facility]) Diverticulosis GERD (gastroesophageal reflux disease) MN (myocardial infarction) ([facility]) Myocardial infarction ([facility]) Type II diabetes mellitus ([facility]) Past Surgical History: Procedure Laterality Date APPENDECTOMY [...] by mouth in the morning and 1 capsule(100 mg) in the evening and 1 capsule (100 mg) before bedtime. 30 capsule 2 insulin NPH, Isophane, (HumuLIN N,NovoLIN N) 100 UNIT/ML injection Inject 1 Units under the skin Lantus 100 UNIT/ML injection Inject 35 Units under the skin in the morning. levothyroxine (Synthroid, Levoxyl) 125 MCG tablet Take 125 mcg by mouth in the morning. Take beforemeals. lisinopril 10 MG tablet Take 20 mg [...] I will call pt. documented in this encounterUniversity [id number] Telephone encounter Note* Telephone Encounter - Jaenne Chacon - 09/30/2024 11:01 AM EST Pt is scheduled with Dr Chacon 10/01/2024. University [id number] Miscellaneous Notes* Telephone Encounter - Jeanne Chacon - 09/30/2024 11:01 AM EST Pt is scheduled with Dr Chacon 10/01/2024. * Telephone Encounter - Jeanne Chacon - 09/26/2024 8:50 AM EST Tried to call pt to schedule a follow up appt for labs, unable to leave a message. documented in this encounterUniversity [id number] Telephone encounter Note* Telephone Encounter - Jeannebrodie Chacon - 09/26/2024 8:50 AM EST Tried to call pt to schedule a follow up appt for labs, unable to leave a message. University [id number] NoteCardiovascular Medicine [facility] SUBJECTIVE Chief Complaint Patient presents with Congestive [...] few months. Patient here for follow up [facility]. Her diuretic was switched again back to [...] Oz of fluid a day per the college and career counselor. Her most recent discharge on 07/25/24 she [...] Hypomagnesemia Hypothyroidism Stage 3 chronic kidney disease ([facility]) Hyperlipidemia Atrial fibrillation ([facility]) Paroxysmal atrial fibrillation ([facility]) Abdominal swelling, generalized Acute on chronic diastolic CHF (congestive heart failure) ([facility]) Anxiety Back pain with history of spinal surgery Cervical disc disease Chalazion of right eye Dyspnea Hordeolum externum (stye) Immunization due Lactose intolerance intermission coordinator (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 insulin ([facility]) Lumbar degenerative disc disease Lumbar spondylosis Lymph edema Macular degeneration Memory changes Osteoarthritis Secondary hyperparathyroidism ([facility]) Stress incontinence of urine Thrush of mouth and esophagus ([facility]) Urinary incontinence UTI (urinary tract infection) Yeast cystitis CARMELO (acute kidney injury) ([facility]) Tremor Acquired hammer toe of right foot Ataxia Balance disorder CHF (congestive heart failure) ([facility]) Dehydration Diabetic foot ([facility]) Diabetic peripheral neuropathy associated with type 2 diabetes mellitus ([facility]) Disability of walking Essential tremor LPRD (laryngopharyngeal reflux disease) Mass of right axilla Paresthesia Throat tightness Type 2 diabetes mellitus with hyperglycemia, with long-term current use of insulin ([facility]) Venous insufficiency (chronic) (peripheral) Debility Past Medical History: Diagnosis Date Atrial fibrillation ([facility]) Cancer ([facility]) Carotid artery stenosis Coronary artery disease Diabetes mellitus ([facility]) GERD (gastroesophageal reflux disease) Hypertension Sleep apnea Family History Problem Relation Name Age of Onset Coronary artery disease Other Diabetes Other Polycystic kidney disease Other Social History Tobacco Use Smoking status: Former Types: Ci (more content not included)...[facility] 09-03-2024 NotePatient here for 2 week follow up. Had echo last week and labs drawn this afternoon. Says she's feeling better. Still denies chest pain, palpitations, and bleeding on Xarelto. Review of Systems Cardiovascular: Positive for leg swelling (feet). Respiratory: Positive for shortness of breath. Musculoskeletal: Positive for muscle weakness. Neurological: Positive for tremors. All other systems reviewed and are negative.[facility] 08-20-2024 NotePatient here for follow up [facility]. Her diuretic was switched again back to [...] tremors. All other systems reviewed and are negative.[facility] 08-20-2024 NoteCardiovascular Medicine [facility] SUBJECTIVE Chief Complaint Patient presents with [...] few months. Patient here for follow up [facility]. Her diuretic was switched again back to [...] Oz of fluid a day per the college and career counselor. Her most recent discharge on 07/25/24 she [...] deficiency Lymphedema of left arm Morbid obesity ([facility]) Obstructive sleep apnea syndrome Paroxysmal supraventricular tachycardia ([facility]) Psoriasis Type 2 diabetes mellitus without complication ([facility]) Mixed hyperlipidemia Diastolic dysfunction Carotid bruit Chronic diarrhea Chronic low back pain Depressive disorder Diabetes mellitus ([facility]) Diabetic neuropathy ([facility]) Exocrine pancreatic insufficiency Gastroesophageal reflux disease Hypertension Hypomagnesemia Hypothyroidism Stage 3 chronic kidney disease ([facility]) Hyperlipidemia Atrial fibrillation ([facility]) Paroxysmal atrial fibrillation ([facility]) Abdominal swelling, generalized Acute on chronic diastolic CHF (congestive heart failure) ([facility]) Anxiety Back pain with history of spinal surgery Cervical disc disease Chalazion of right eye Dyspnea Hordeolum externum (stye) Immunization due Lactose intolerance intermission coordinator (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 insulin ([facility]) Lumbar degenerative disc disease Lumbar spondylosis Lymph edema Macular degeneration Memory changes Osteoarthritis Secondary hyperparathyroidism ([facility]) Stress incontinence of urine Thrush of mouth and esophagus ([facility]) Urinary incontinence UTI (urinary tract infection) Yeast cystitis CARMELO (acute kidney injury) ([facility]) Tremor Acquired hammer toe of right foot Ataxia Balance disorder CHF (congestive heart failure) ([facility]) Dehydration Diabetic foot ([facility]) Diabetic peripheral neuropathy associated with type 2 diabetes mellitus ([facility]) Disability of walking Essential tremor LPRD (laryngopharyngeal reflux disease) Mass of right axilla Paresthesia Throat tightness Type 2 diabetes mellitus with hyperglycemia, with long-term current use of insulin ([facility]) Venous insufficiency (chronic) (peripheral) Debility Past Medical History: Diagnosis Date Atrial fibrillation ([facility]) Cancer ([facility]) Carotid artery stenosis Coronary artery disease Diabetes mellitus ([facility]) GERD (gastroesophageal reflux disease) Hypertension Sleep apnea [...] All other systems reviewed (more content not included)...[facility]09-10[facility] History of Present illness Narrative* Christel Chacon MD - 07/22/2024 1:10 PM EDT Subjective Patient ID: Joe Call is a 79 y.o. female who presents for Sore Throat (Sporadic x 2 mo. StatesCT neck done in May 2024 came back WNL.) Pt reports she has had a sensation of throat swelling intermittently for a couple months. Occurs 3 times a week and lasts about a day. Pt takes famotidine nightly. Pt states Zicam helps a lot. CT neck obtained. I reviewed the CT and there is no abnormality evident, including thyromegally. Pt has taken synthroid 125mcg/d for many years. Pt has recently gained 10#. Pt has JED, but does not use CPAPdue to claustrophobia. Last sleep study 10 years ago. Review of Systems All other systems reviewed and are negative. Family History Problem Relation Name Age of Onset Heart failure Mother Coronary artery disease Mother Heart failure Father Coronary artery disease Father Alzheimer's disease Sister Active Ambulatory Problems Diagnosis Date Noted Abdominal swelling, generalized 05/20/2024 Acquired hammer toe of right foot 07/03/2024 Acute on chronic diastolic CHF (congestive heart failure) ([facility]) 05/20/2024 CARMELO (acute kidney injury) ([facility]) 05/20/2024 Anxiety 05/20/2024 Aortic valve disorder 08/20/2012 Back pain with history of spinal surgery 05/20/2024 Benign essential hypertension (CMS/HCC) 04/02/2012 Carotid artery stenosis 07/20/2022 Carotid bruit 01/16/2023 Cervical disc disease 05/20/2024 Chalazion of right eye 05/20/2024 Chronic diarrhea 01/16/2023 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 Chronic low back pain 01/16/2023 Coronary atherosclerosis (CMS/HCC) 03/20/2012 Depressive disorder (CMS/HCC) 01/16/2023 Diabetes mellitus (CMS/HCC) 07/03/2024 Diabetic foot (CMS/HCC) 07/03/2024 Diabetic neuropathy (CMS/HCC) 01/16/2023 Diabetic peripheral neuropathy associated with type 2 diabetes mellitus (CMS/HCC) 07/03/2024 Diastolic dysfunction 09/05/2022 Disability of walking 07/03/2024 Diverticulitis of colon 03/20/2012 Dyspnea 05/20/2024 Exocrine pancreatic insufficiency (CMS/HCC) 01/16/2023 Gastroesophageal reflux disease 01/16/2023 History of malignant neoplasm of breast 03/20/2012 Hordeolum externum (stye) 05/20/2024 Hyperlipidemia (CMS/HCC) 07/03/2024 Hypertension (CMS/HCC) 01/16/2023 Near syncope 07/03/2024 Hypomagnesemia 01/16/2023 Hypothyroidism (CMS/HCC) 01/16/2023 Lumbar degenerative disc disease 05/20/2024 Lumbar spondylosis 05/20/2024 Lymph edema 05/20/2024 Lymphedema of left arm 03/20/2012 Macular degeneration 05/20/2024 Memory changes 05/20/2024 Morbid obesity (CMS/HCC) 07/20/2022 Obstructive sleep apnea syndrome 03/20/2012 Paroxysmal atrial fibrillation (CMS/HCC) 03/20/2012 Paroxysmal supraventricular tachycardia (CMS/HCC) 03/26/2012 Psoriasis (CMS/HCC) 03/20/2012 Secondary hyperparathyroidism (CMS/HCC) 05/20/2024 Stage 3 chronic kidney disease (HCC) ([facility]) 01/16/2023 Hypertensive chronic kidney disease with stage 1 through stage 4 chronic kidney disease, or unspecified chronic kidney disease (CMS/HCC) 07/03/2024 Thrush of mouth and esophagus (CMS/HCC) 05/20/2024 Tremor 06/18/2024 Type 2 diabetes mellitus with hyperglycemia, with long-term current use of insulin ([facility]) 07/03/2024 Venous insufficiency (chronic) (peripheral) 07/03/2024 Essential tremor 07/08/2024 Balance disorder 07/08/2024 Ataxia 07/08/2024 Diabetic peripheral neuropathy ([facility]) 07/08/2024 Paresthesia 07/08/2024 Sensory ataxia 07/10/2024 Debility 07/10/2024 Weakness 07/10/2024 Paresthesias 07/10/2024 Resolved Ambulatory Problems Diagnosis Date Noted Acute pain of left shoulder 07/03/2024 Lactose intolerance 05/20/2024 [facility] (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 insulin ([facility]) 05/20/2024 Pharyngitis 07/03/2024 CKD (chronic kidney disease), stage IV ([facility]) 07/03/2024 Stress incontinence of urine 05/20/2024 Urinary incontinence 05/20/2024 UTI (urinary tract infection) 05/20/2024 Yeast cystitis 05/20/2024 Past Medical History: Diagnosis Date Anemia Breast cancer ([facility]) Coronary heart disease ([facility]) Diverticulosis GERD (gastroesophageal reflux disease) [place] (myocardial infarction) ([facility]) Myocardial infarction ([facility]) Type II diabetes mellitus ([facility]) Past Surgical History: Procedure Laterality Date APPENDECTOMY BACK SURGERY CARDIAC CATHETERIZATION CARPAL TUNNEL RELEASE CHOLECYSTECTOMY COLECTOMY HYSTERECTOMY MASTECTOMY Bilateral Allergies Allergen Reactions Chocolate Flavor Iodine Other and Unknown Metformin Hcl Other [...] capsule Take 1 capsule by mouth Daily cholecalciferol (Vitamin D-3) 25 MCG (1000 UT) capsule Take 25 mcg by mouth Daily dilTIAZem CD (Cardizem CD) 120 MG 24 hr capsule Take 120 mg by mouth Daily famotidine (Pepcid) 20 MG tablet Take 20 mg by mouth at bedtime furosemide (Lasix) 20 MG tablet Take 20 mg by mouth gabapentin (Neurontin) 100 MG capsule Take 1 capsule (100 mg) by mouth in the morning and 1 capsule(100 mg) in the evening and 1 capsule (100 mg) before bedtime. 30 capsule 2 insulin NPH, Isophane, (HumuLIN N,NovoLIN N) 100 UNIT/ML injection Inject 1 Units under the skin levothyroxine (Synthroid, Levoxyl) 125 MCG tablet Take 125 mcg by mouth in the morning. Take beforemeals. metoprolol tartrate (Lopressor) 100 MG tablet Take 1.5 tablets by mouth in the morning and 1.5 tablets before bedtime. nystatin (Mycostatin) cream Apply 1 application topically if needed oxyCODONE-acetaminophen (Percocet) 5-325 MG tablet Take 1 [...] to visit. Objective Last Recorded Vitals Vitals: 07/22/24 1315 BP: 130/82 ENT Physical Exam Constitutional Appearance: patient appears well-developed and well-groomed, obesity noted, Head and Face Appearance: head appears normal and face appears atraumatic; Ear Ear Canals: right ear canal normal; left ear canal normal; Tympanic Membranes: right tympanic membrane normal; left tympanic membrane normal; Nose External Nose: nares patent bilaterally; external nose normal; Internal Nose: septum normal; Oral Cavity/Oropharynx Tongue: normal; Oral mucosa: normal; Hard palate: normal; Soft palate: normal; Tonsils: normal; Neck Neck: neck normal; neck palpation normal; Thyroid: thyroid normal; Respiratory Inspection: breathing unlabored; normal breathing rate; Auscultation: breath sounds are clear; Cardiovascular Inspection: extremities are warm and well perfused; no peripheral edema present; Auscultation: regular rate and rhythm; Assessment/Plan Diagnoses and all orders for this visit: JED (obstructive sleep apnea) LPRD (laryngopharyngeal reflux disease) Throat tightness I see no sign of any clear discrete lesion. Pt's wt is certainly a contributing factor as her throat is crowded. She clearly has JED and agrees to try again with CPAP. I will have her see Dr Patel to manage this as she may need meds to tolerate well. I will also check TFTs and anti thyroid ab to see is thyroiditis is contributing. Finally, LPRD may contribute to throat fullness documented in this encounterUniversity [id number] History of Present illness Narrative* Lizett Jacinto, FIELD CONTACT TECHNICIAN - 07/10/2024 1:40 PM EDT Images from the original note were not included. No chief complaint on file. Subjective Joe Call, 78 y.o., female Patient is here today for follow-up of tremors and neuropathy. I am following the plan of care established by who is present in the office today and supervising patient care. SHANNA Parikh presents today as HOSP F/U after being seen IP at [facility] for worsening SOB along with lower extremity edema and lower abdominal wall edema after being taken off of Lasix. Was discharged with instructions to f/u with PCP, Cardiologies, [employer]. States that she was dx with CHF and has been to the hospital 7 times in the last 6 months. States that lately she notices she has tremors, intermittent in the day. Not able to identify triggers. States that she is unable to write. states that she is unable to do simple tasks like putting sugar in her coffee. Past Medical History: Diagnosis Date Acute pain of left shoulder 07/03/2024 Anemia Breast cancer ([facility]) CKD (chronic kidney disease), stage IV ([facility]) 07/03/2024 Coronary heart disease ([facility]) Diverticulosis GERD (gastroesophageal reflux disease) Lactose intolerance 05/20/2024 [facility] (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 insulin ([facility]) 05/20/2024 [place] (myocardial infarction) ([facility]/HCC) Myocardial infarction ([facility]/HCC) Pharyngitis 07/03/2024 Type II diabetes mellitus ([facility]) Urinary incontinence 05/20/2024 Yeast cystitis 05/20/2024 Past Surgical History: Procedure Laterality Date APPENDECTOMY BACK SURGERY CARDIAC CATHETERIZATION CARPAL TUNNEL RELEASE CHOLECYSTECTOMY COLECTOMY HYSTERECTOMY MASTECTOMY Bilateral Family History Problem Relation Name Age of Onset Heart failure Mother Coronary artery disease Mother Heart failure Father Coronary artery disease Father Alzheimer's disease Sister Social History Tobacco Use Smoking status: Former Types: Cigarettes Smokeless tobacco: Never Substance Use Topics Alcohol use: Never Comment: caffeine: 1-2 cups per day Allergies: Chocolate flavor, Iodine, Metformin hcl, Shellfish-derived products, Sulfa antibiotics, and Iodinated contrast media General: No fever or chills HEENT: No nasal congestion or runny nose Pulmonary: No shortness of breath or cough Cardiovascular: No chest pain or palpitations GI: No nausea or vomiting : No dysuria or hematuria Musculoskeletal: No new aches or pains or muscle weakness Infectious: no recurrent fevers or infections Dermatologic: No rashes or skin lesions Neurologic: No new headaches or dizziness Vitals: 07/10/24 1340 BP: 132/86 Body mass index is 42.43 kg/m . weight: 255 lb Neurologic exam: General: Obese, cooperative, pleasant Mental status: Awake, alert to person, place and time. Recent and remote memory are intact. Attention and concentration are normal. Fund of knowledge is appropriate for level of education. HEENT: NC/AT Cranial nerves: CN II: Visual morley full to confrontation. No loss of vision CN III, IV, : pupils equal round and reactive to light. Extraocular movements intact. No ptosis present. CN V: Facial sensation is normal. CN VII: Full and symmetric facial movement. CN VIII: Hearing is normal CN IX and X: Palate elevates symmetrically. CN XI: Shoulder shrug is normal bilaterally. CN XII: Tongue is midline without atrophy or fasciculation. Speech: Clear and fluent no aphasia or dysarthria Pronator drift: Negative bilateral upper extremity Coordination: Intact, no signs of dysmetria Good finger to nose and rapid alternating movements Sensory: Sensation is intact to light touch throughout four extremities. Vibratory sensation and pinprick intact in upper extremities, absent knees to distally. Motor: LUE 4+/5, significant lymphedema RUE 4+/5 LLE 5/5 RLE 5/5 Tone: BUE tremor with antigravity and intention, no cogwheeling, bradykinesia or rigidity DTR: Bilateral Biceps 2/4 Bilateral BR 2/4 Bilateral Patellar 2/4 No spasticity Gait: Unsteady using rollator walker Romberg's x Assessment/Plan Diagnoses and all orders for this visit: Essential tremor Diabetic polyneuropathy associated with type 2 diabetes mellitus (CMS/HCC) - gabapentin (Neurontin) 100 MG capsule; Take 1 capsule (100 mg) by mouth in the morning and 1 capsule (100 mg) in the evening and 1 capsule (100 mg) before bedtime. Balance disorder Sensory ataxia Debility Weakness Paresthesias - gabapentin (Neurontin) 100 MG capsule; Take 1 capsule (100 mg) by mouth in the morning and 1 capsule (100 mg) in the evening and 1 capsule (100 mg) before bedtime. 78-year-old female with a bilateral upper extremity and head tremor that is most consistent with anessential tremor/hereditary tremor. This started about 2 years ago now as we have not seen her in [facility]. She never followed up. Dr. Choe saw her in 2013 for a nerve/facial pain issue and a head tremor that he felt was consistent with a central tremor. Fortunately this has taken a long time for it to worsen but it has to the point that she would now like to try and treat it. She is mostly upset about how her handwriting appears. At this time I do not see any evidence of Parkinson's disease or a Parkinsonism. Treatment is complicated as the patient is already on metoprolol 100 mg daily. Her systolic blood pressure is 132 so there is a possibility for that to be increased but that would need to be done through the portable grinding machine operator. The patient does have benzodiazepines which are likely also helping the tremor. However the patient is on Xarelto therefore we cannot use Mysoline as it is an enzyme inducer andmay increase the metabolism of the Xarelto making it less effective. This was all discussed with her again today. We did discuss other options are trial and error medications such as Lyrica or gabapentin or dopaminergic medications like amantadine. A She may use modifying techniques such as weighted silverware, utensil associate professor of literature and/or cups with lids on them. . Patient also complains of balance issues and gait ataxia. This started around 2015 right before shehad surgery with Dr. Peterson. She states she had issues from her neck down however she had surgery in her lumbar spine. She has not been able to walk well since that time. She uses a walker. She was obese back then and continues to have underlying obesity. She is not exercising and has a degree of debility and deconditioning. In addition she appears to have a diabetic peripheral neuropathy which is likely contributing with all of the above causing the ataxia and balance issues. She does use a walker. She did have an EMG and has severe neuropathy. . Due to neuropathy and tremor we will trial gabapentin and try to improve both with one medication. She is aware this is very low dose and may need an increase. Tremor is not likely to ever go completely away, we can only hope it will improve some. . 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 . . . Plan Scheduled as hospital follow up, she was not seen in the hospital for anything neurological, DX CHF Start gabapentin 100 mg po TID, for tremor and neuropathy, she can take all at night if she is sedated or forgets afternoon dose OARRS reviewed, she is on percocet and xanax prn Reviewed EMG BLE We did discuss again in great detail her tremor and the medication options Weighted silverware [employer] associate professor of literature to aid with writing and putting on makeup Cups with covers on them She was counseled she needs to do regular exercise. We can consider doing some physical therapy however she will try some home exercises She needs to be more aggressive with diet and weight loss. Will discuss possible JED at the next visit This was discussed with the patient, all questions were answered and they agreed with the treatmentplan. The patient is to call with any worsening of the condition or new symptoms. Return to clinic: 2 months documented in this encounterUniversity [id number] NoteUT Cardiology - [facility] Subjective Joe Call is a 78 y.o. year old female patient being seen for 1 mo follow up acute on chronic diastolic heart failure, CAD, and CARMELO. She's presented to [facility] ED several times over the past month. [...] Hordeolum externum (stye) Immunization due Lactose intolerance intermission coordinator (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 insulin (CMS/HCC) Lumbar degenerative [...] December 2022 she was admitted to the [facility] with decompensated diastolic heart failure, she was treated with diuretic therapy. In February 2023 she was admitted to [facility] with dehydration secondary to acute gastroenteritis. She also had acute kidney injury in that setting. She has history of breast cancer more than 25 years ago s/p mastectomy, chemo and radiation therapy. She has lymphedema in the left arm. In the past she saw a statistical typist for bleeding behind the eye . she [...] April 2024 she was admitted to the [facility] with increasing weakness and altered mental status. She also had acute renal insufficiency. She had UTI secondary to E. coli. She was admitted again to the [facility] on 06/09/2020 for with acute on [...] Appearance: She is well-develo (more content not included)...[facility]07-09-2024 NoteBMP today to assess renal function and electrolytesUnBlanch[facility] NoteHeart failure is unchanged. NYHA Class II. Continue current treatment regimen. Dietary sodium restriction. Encouraged daily monitoring of the patient's weight. Continue current medications. Heart failure will be reassessed in 1 month. BMP to assess renal function and electrolytes today to see if can uptitrate GDMT- in light Lasix, lisinopril and aldactone on hold from recent hospitalizationUnBlanchard Valley Health [facility]2024 NoteCoronary artery disease is unchanged. Continue current medications. Continue GDMT- lipitor, metoprolol continue risk factor modifications- heart healthy diet, regular exercise as tolerated and continue all medications.[facility] 05-20-2024 NoteLipid abnormalities are unchanged. Pharmacotherapy as ordered. Continue lipitorUnBlanchard Valley Health [facility]07-09-2024 NoteUTP CARDIOLOGY PROGRESS NOTE HPI: Joe Call is a 78 y.o. female here for hospital F/U HPI: Patient here for follow up [facility] for renal failure. She was also discharged back in March 2024 for CHF. Lisinopril, spironolactone, and furosemide were stopped during one of the admissions. She denies chest pain, SOB, and LE edema. Denies lightheadedness, syncope, and bleeding on Xarelto. Feels much better s/p hospital stay. Palpitations are no more than usual for her. She will be seeing her college and career counselor (Dr. Rapp) on 06/05/2024. Currently weight is [...] December 2022 she was admitted to the [facility] with decompensated diastolic heart failure, she was treated with diuretic therapy. In February 2023 she was admitted to [facility] with dehydration secondary to acute gastroenteritis. She also had acute kidney injury in that setting. She has history of breast cancer more than 25 years ago s/p mastectomy, chemo and radiation therapy. She has lymphedema in the left arm. In the past she saw a statistical typist for bleeding behind the eye . she [...] BSA 2.3 m??? Allergie (more content not included)...[facility] 05-20-2024 NotePatient here for follow up [facility] for renal failure. She was also discharged back in March 2024 for CHF. Lisinopril, spironolactone, and furosemide were stopped during one of the admissions. She denies chest pain, SOB, and LE edema. Denies lightheadedness, syncope, and bleeding on Xarelto. Feels much better s/p hospital stay. Palpitations are no more than usual for her. She will be seeing her college and career counselor (Dr. Rapp) on 06/05/2024. Review of Systems Cardiovascular: Positive for palpitations. Musculoskeletal: Positive for muscle weakness. All other systems reviewed and are negative.[facility] 03-07-2024 NoteUT Cardiology - [facility] Subjective Joe Call is a [...] Topics Alcohol use: Not Currently Drug use: Alia OTERO Joe is seen in follow up [...] December 2022 she was admitted to the [facility] with decompensated diastolic heart failure, she was treated with diuretic therapy. In February 2023 she was admitted to [facility] with dehydration secondary to acute gastroenteritis. She also had acute kidney injury in that setting. She has history of breast cancer more than 25 years ago s/p mastectomy, chemo and radiation therapy. She has lymphedema in the left arm. In the past she saw a statistical typist for bleeding behind the eye . she [...] THREE TIMES DAILY NEEDED (more content not included)...[facility] 02-15-2024 Hospital Discharge instructionsAmbulatory Orders* Referral to Urology Time Frame: 02/15/24, Location: None [facility] Work Phone: [phone]) 948-375101-08-2024 Evaluation note* Encounter Date Diagnosis Assessment Notes Treatment Notes Treatment Clinical Notes Nov, Lumbar degenerative disc disease (ICD-10 - M51.36) [facility] E[facility]QU[facility] Other 12-12-2023 Evaluation note* Encounter Date Diagnosis [...] will check vitamin B12 level next visit [facility] Other 12-11-2023 Evaluation note* Encounter Date Diagnosis Assessment Notes Treatment Notes Treatment Clinical Notes Oct, Lumbar degenerative disc disease (ICD-10 - M51.36) [facility] Other 12-07-2023 Evaluation note* Encounter Date Diagnosis Assessment Notes Treatment Notes Treatment Clinical Notes Oct, Bronchitis (ICD-10 - J40) Finish meds. No acute need for antibiotic at this time Oct, Diabetes mellitus with chronic kidney disease (ICD-10 - E11.22) Due for labs, followup w Dr. Mcconnell Oct, Lumbar degenerative disc disease (ICD-10 - M51.36) Pt will contact neurosurgery. [facility] Other 10-27-2023 Evaluation note* Encounter Date Diagnosis Assessment Notes Treatment Notes Treatment Clinical Notes Aug, Chronic kidney disease, stage 4 (severe) (ICD-10 - N18.4) [facility] Other 10-24-2023 Evaluation note* Encounter Date Diagnosis [...] (ICD-10 - M51.36) Pt requests referral to [facility]. Reviewed OARRS report. Aug, Stress incontinence of urine (ICD-10 - N39.3) R/o infection. Discussed could be related to her diabetes med as well. [facility] Other 10-12-2023 Evaluation note* Encounter Date Diagnosis Assessment Notes Treatment Notes Treatment Clinical Notes Aug, Lumbar degenerative disc disease (ICD-10 - M51.36) [facility] Other 09-11-2023 Evaluation note* Encounter Date Diagnosis Assessment Notes Treatment Notes Treatment Clinical Notes Jul, Lumbar degenerative disc disease (ICD-10 - M51.36) [facility] Other 09-05-2023 Evaluation note* Encounter Date Diagnosis [...] refill. Oarrs reviewed. No med changes needed. [facility] Other 07-05-2023 Evaluation note* Encounter Date Diagnosis Assessment Notes Treatment Notes Treatment Clinical Notes May, C. difficile colitis (ICD-10 - A04.72) [facility] Other 06-19-2023 Evaluation note* Encounter Date Diagnosis Assessment Notes Treatment Notes Treatment Clinical Notes Apr, Skin candidiasis (ICD-10 - B37.2) Discussed this is related to her hyperglycemia. Will treat w nystatin, but needs improvement in diet and glucose readings. Apr, Type 2 diabetes mellitus with hyperglycemia, unspecified whether exterminator termite insulin use (ICD-10 - E11.65) Pt agrees to see Dr Mcconnell again. Recently sent to ER for glucose of 608. Apr, Tremor of both hands (ICD-10 - R25.1) Referral to Dr. Lopez Apr, Memory changes (ICD- 10 - R41.3) Referral to Dr. Lopez Apr, Gastroesophageal reflux disease without esophagitis (ICD-10 - K21.9) Improved on carafate w PPI. [facility] Other 06-01-2023 Evaluation note* Encounter Date Diagnosis Assessment Notes Treatment Notes Treatment Clinical Notes Apr, Gastroesophageal ref lux disease without esophagitis (ICD-10 - K21.9) [facility] Other 04-28-2023 Evaluation note* Encounter Date Diagnosis [...] (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 insulin (ICD-10 - Z79.4) [facility] Other 04-26-2023 Evaluation note* Encounter Date Diagnosis Assessment Notes Treatment Notes Treatment Clinical Notes Feb, C. difficile colitis (ICD-10 - A04.72) [facility] Other 04-17-2023 Evaluation note* Encounter Date Diagnosis Assessment Notes Treatment Notes Treatment Clinical Notes Feb, Gastroesophageal ref lux disease without esophagitis (ICD-10 - K21.9) [facility] Other 04-14-2023 Evaluation note* Encounter Date Diagnosis Assessment Notes Treatment Notes Treatment Clinical Notes Feb, Chronic diarrhea (ICD-10 - K52.9) [facility] Other 04-11-2023 Evaluation note* Encounter Date Diagnosis [...] it really overall has not been helpful. [facility] Other 01-13-2023 Evaluation note* Encounter Date Diagnosis Assessment Notes Treatment Notes Treatment Clinical Notes Nov, Type 2 diabetes mellitus with hyperglycemia, unspecified whether exterminator termite insulin use (ICD-10 - E11.65) [facility] Other 10-14-2021 Evaluation note* Encounter Date Diagnosis [...] training 6. Follow up in 3 months. [facility] Other Evaluation + Plan note No data available for this section General Surgery [place] Evaluation + Plan note Future Appointments Appointment Date:11/06/2024 11:00:00 AM Scheduled Provider: Location:[facility] Appointment Type:URO Nurse Visit Appointment Date:12/08/2024 11:40:00 AM Scheduled Provider:FRANCHESCA PERAZA PA-C Location:[facility] Appointment Type:URO Office Visit Diagnostic Tests Pending * Renal Function Panel 11/04/24 [facility] evaluation + Plan note Future Appointments Appointment Date:12/08/2024 11:40:00 AM Scheduled Provider:FRANCHESCA PERAZA PA-C Location:[facility] Appointment Type:URO Office Visit Appointment Date:12/18/2024 11:20:00 AM Scheduled Provider:FRANCHESCA PERAZA PA-C Location:[facility] Appointment Type:URO Complex Office Visit [facility] evaluation + Plan note Future Appointments Appointment Date:12/18/2024 11:20:00 AM Scheduled Provider:FRANCHESCA PERAZA PA-C Location:[facility] Appointment Type:URO Complex Office Visit [facility] evaluation noteNo InformationNortChampionVillage Other evaluation noteNortChampionVillage Other Evaluation noteNortChampionVillage Other Evaluation note* Diagnosis Onset Date Resolution Status Chalazion of right eye acute Immunization due acute Urinary incontinence acute [facility] Work Phone: evaluation note* Diagnosis Onset Date Resolution Status Chalazion of right eye acute Immunization due acute Urinary incontinence acute Diabetes mellitus with hyperglycemia acute Hypertension acute Hypothyroidism acute Lumbar spondylosis acute Secondary hyperparathyroidism acute [facility] Work Phone: evaluation note* Diagnosis Onset Date Resolution Status Urinary [...] of mouth and esophagus acute [facility] Work Phone: evaluation note* Diagnosis Onset [...] UTI (urinary tract infection) acute [facility] Work Phone: evaluation note* Diagnosis Onset [...] acute Thrush of mouth and esophagus acute [id number] acute Secondary hyperparathyroidism acute [facility] Work Phone: Evaluation note* Diagnosis Onset [...] acute Thrush of mouth and esophagus acute [id number] acute CKD (chronic kidney disease) stage 3, GFR 30-59 ml/min acute Hyperlipidemia acute [id number]-[id number] acute Secondary hyperparathyroidism acute Type 2 diabetes mellitus wit h diabetic chronic kidney disease acute Tremor acute [facility] Work Phone: Evaluation note* Diagnosis Onset [...] acute Thrush of mouth and esophagus acute [id number]-[id number] acute CKD (chronic kidney disease) stage 3, GFR 30-59 ml/min acute Hyperlipidemia acute SEL-PNGN-[id number] acute Secondary hyperparathyroidism acute Type 2 diabetes mellitus wit h diabetic chronic kidney disease acute Acute on chronic diastolic C HF (congestive heart failure) acute [id number] acute Tremor acute GQM-[id number] acute [facility] Work Phone: Evaluation note* Diagnosis Onset [...] acute Thrush of mouth and esophagus acute [id number] acute CKD (chronic kidney disease) stage 3, GFR 30-59 ml/min acute Hyperlipidemia acute CLO-[id number] acute Secondary hyperparathyroidism acute Type 2 diabetes mellitus wit h diabetic chronic kidney disease acute Acute on chronic diastolic C HF (congestive heart failure) acute [id number]-[id number] acute Tremor acute FHB-NWGJ-[id number] acute Mass of right axilla acute [facility] Work Phone: Evaluation note* Diagnosis Onset [...] acute Thrush of mouth and esophagus acute [id number]-[id number] acute CKD (chronic kidney disease) stage 3, GFR 30-59 ml/min acute Hyperlipidemia acute QGV-[id number] acute Secondary hyperparathyroidism acute Type 2 diabetes mellitus wit h diabetic chronic kidney disease acute Acute on chronic diastolic C HF (congestive heart failure) acute DPA-[id number] acute Tremor acute ESB-[id number]-05481143 acute Mass of right axilla acute CHF (congestive heart failure) acute Dehydration acute LLH-FUXW-07723051 acute DAB-[id number] acute [facility] Work Phone: Evaluation note* Diagnosis Onset [...] acute Thrush of mouth and esophagus acute [id number] acute CKD (chronic kidney disease) stage 3, GFR 30-59 ml/min acute Hyperlipidemia acute LPI-[id number]-[id number] acute Secondary hyperparathyroidism acute Type 2 diabetes mellitus wit h diabetic chronic kidney disease acute Acute on chronic diastolic C HF (congestive heart failure) acute MAB-[id number] acute Tremor acute SGZ-TIYC-10634354 acute Back pain with history of spinal surgery acute Cervical disc disease acute CKD (chronic kidney disease), stage IV acute Mass of right axilla acute CHF (congestive heart failure) acute Dehydration acute SEN-[id number]-83251110 acute XVM-[id number] acute Dysuria acute [facility] Work Phone: Evaluation note* Diagnosis Onset Date Resolution Status Lumbar degenerative disc disease acute Thrush of mouth and esophagus acute [id number] acute CKD (chronic kidney disease) stage 3, GFR 30-59 ml/min acute Hyperlipidemia acute [id number]-[id number] acute Secondary hyperparathyroidism acute Type 2 diabetes mellitus wit h diabetic chronic kidney disease acute Acute on chronic diastolic C HF (congestive heart failure) acute WFG-[id number] acute Tremor acute YVT-MZKC-10719810 acute Back pain with history of spinal surgery acute Cervical disc disease acute CKD (chronic kidney disease), stage IV acute Mass of right axilla acute CHF (congestive heart failure) acute Dehydration acute [id number] acute COA-DJMV-49473074 acute Dysuria acute [facility] Work Phone: Evaluation note* Diagnosis JED (obstructive sleep apnea)- Primary Obstructive sleep apnea (adult) (pediatric) Hypothyroidism (acquired) ([facility]) Unspecified hypothyroidism documented [facility] this encounter [facility] Diagnosis Essential tremor- Primary Diabetic polyneuropathy associated with type 2 diabetes mellitus (CMS/HCC) Balance disorder Sensory ataxia Lack of coordination Debility Unspecified debility Weakness Other malaise and fatigue Paresthesias Disturbance of skin sensation documented in this encounter [facility]* Diagnosis JED (obstructive sleep apnea)- Primary Obstructive sleep apnea (adult) (pediatric) LPRD (laryngopharyngeal reflux disease) Acute laryngitis, without mention of obstruction Throat tightness documented in this encounter [facility] HealthcareHistory general [...] History COLONOSCOPY 04/10/2019 Hospitalization History See above [facility] Other Hisgxrj general Narrative - Reported* Type Description Date [...] History COLONOSCOPY 04/10/2019 Hospitalization History See above [facility] Other History general Narrative - ReportedNoTerabit Radios Other History general Narrative - ReportedNortChampionVillage Other History general Narrative - Reported* Type [...] GERD 2022 Hospitalization History DIABETES ISSUES 2022 [facility] Other Hospital Discharge instructions No data available for this section General Surgery [place] Hospital Discharge instructionsAmbulatory Orders* Referral to Neurology Time Frame: 06/16/24, Location: None [facility] Work Phone: Hospital Discharge instructionsAmbulatory Orders* Referral to ENT Time Frame: 06/25/24, Location: None [facility] Work Phone: Progress note No data available for this section General Surgery [place] Reason for visit Narrative* Consultation (Routine) - Closed Specialty Diagnoses / Procedures Referred By Renetta t Referred To Contact Neurology Diagnoses Tremor, unspecified Procedures [place] OFFICE/OUTPATIENT [facility] 30 MINUTES Shantel Steven MD [address] [place] [address] Gio Choe MD [address] [place] [address] Referral ID Status Reason Start Date Expiration Date V isits Requested Visits Authorized [id number] Closed Consult and Treat 06/27/2024 12/24/2024 1 1 [facility] Summary Purpose Family History Relationship Condition Age [...] Date/ Time Advance Directives No July 11:28am Advance Directive Response Recorded Date/ Time Advance Directives No July 10:28am Reason for Referral Reason *Waiting for appt Labs last week. Sees endocrinology for diabetes. Renal function decreased. Diagnosis 1 Chronic kidney disea se, stage 4 (severe) (N18.4) Referral Organization [facility] [employer] helene Referring Provider First Name Shantel Referring Provider Last Name Tenisha Referring Provider Specialty [facility] Referred Organization [facility] Nephrology Referred Provider Cherie Rapp Referred Address [address] [place], [place],[address] Referred Provider Specialty Nephrology Referral Priority Routine General Notes Mariela Kingston 11:35:41 AM >received today, sent P2P Reason *FU 09/13 lumbar p ain Diagnosis 1 Lumbar degenerative disc disease (M51.36) Referral Organization [facility] helene Referring Provider First Name Shantel Referring Provider Last Name Tenisha Referring Provider Specialty [facility] Referred Organization [facility] Referred Provider Terell Soliz Referred Address [address] [place], [place],[address] Referred Provider Specialty Pain Medic[facility] e Referral Priority Routine General Notes Mariela Kingston 03:09:25 PM >received today, waiting for notes to be locked Mariela Kingston 09/06/2023 10:08:29 AM >notes locked, referral faxed Clinical Notes F: [id number] Reason Poorly controlled di abetes Diagnosis 1 Type 2 diabetes maranda itus with hyperglycemia, unspecified whether fpc insulin use (E11.65) Referral Organization [facility] helene Referring Provider First Name Shantel Referring Provider Last Name Tenisha Referring Provider Specialty [facility] [employer] Referred Organization Unknown Facility Referred Provider Joshua Mcconnell Referred Provider Specialty Internal Med icine Referral Priority Routine Reason tremor and memory lo ss - family history of dementia Diagnosis 1 Tremor of both hands (R25.1) Referral Organization [facility] helene Referring Provider First Name Shantel Referring Provider Last Name Tenisha Referring Provider Specialty [facility] [employer] Referred Organization Unknown Facility Referred Provider Emery [...] disc disease Thrush of mouth and esophagus [id number] Secondary hyperparathyroidism Chief Complaint medication review Amb [...] disc disease Thrush of mouth and esophagus [id number]-[id number] CKD (chronic kidney disease) stage 3, GFR 30-59 ml/min Hyperlipidemia [id number]-[id number]-01650712 Secondary hyperparathyroidism Type 2 diabetes mellitus with [...] disc disease Thrush of mouth and esophagus MZQ-IAUF-12264487 CKD (chronic kidney disease) stage 3, GFR 30-59 ml/min Hyperlipidemia [id number]-AZYH-58177151 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 Acute on chronic diastolic CHF (congestive heart failure) [id number]-[id number] Tremor [id number] Chief Complaint difficulty swallowin g Amb Documentation [...] disc disease Thrush of mouth and esophagus [id number]-[id number]-[id number] CKD (chronic kidney disease) stage 3, GFR 30-59 ml/min Hyperlipidemia WJJ-MMQC-98954654 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 Acute on chronic diastolic CHF (congestive heart failure) [id number]-[id number] Tremor [id number]-[id number]-93965118 Mass of right axilla Chief Complaint difficulty [...] disc disease Thrush of mouth and esophagus QCC-HHZV-02026177 CKD (chronic kidney disease) stage 3, GFR 30-59 ml/min Hyperlipidemia [id number]-WUHA-94235439 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 Acute on chronic diastolic CHF (congestive heart failure) [id number]-[id number]-86933169 Tremor QLH-MHYC-01589380 Mass of right axilla Chief Complaint difficulty [...] disc disease Thrush of mouth and esophagus SHF-SNND-56923246 CKD (chronic kidney disease) stage 3, GFR 30-59 ml/min Hyperlipidemia ZRO-UPZK-51373381 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 Acute on chronic diastolic CHF (congestive heart failure) HSL-YLBX-57159798 Tremor AIK-[id number]-88922139 Mass of right axilla CHF (congestive heart failure) Dehydration [id number]-[id number] [id number]-[id number]-[id number] Chief Complaint difficulty swallowin g Amb Documentation [...] disc disease Thrush of mouth and esophagus HPD-[id number] CKD (chronic kidney disease) stage 3, GFR 30-59 ml/min Hyperlipidemia NLP-KVQZ-52706036 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 Acute on chronic diastolic CHF (congestive heart failure) DLS-MPOK-19139308 Tremor VCH-BANX-34180018 Back pain with history of spinal surgery Cervical disc disease CKD (chronic kidney disease), stage IV Mass of right axilla CHF (congestive heart failure) Dehydration PNL-[id number]-[id number] NSB-YEAT-26276753 Dysuria Chief Complaint throat problem SOB RENAL CKD 4 [facility] follow up 3 month f/u Kidney injury, high BP R30.0 UA Amb Documentation TB[facility] f/u:Pulmonary Adema Reason for Visit Lumbar degenerative disc disease Thrush of mouth and esophagus POF-WVWV-75778617 CKD (chronic kidney disease) stage 3, GFR 30-59 ml/min Hyperlipidemia [id number]-63914665 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 Acute on chronic diastolic CHF (congestive heart failure) [id number] Tremor [id number] Back pain with history of spinal surgery Cervical disc disease CKD (chronic kidney disease), stage IV Mass of right axilla CHF (congestive heart failure) Dehydration [id number] Dysuria Chief Complaint Admit Date gen weakness October 16, 2024 3 :52pm gen weakness October 16, 2024 7 :41pm gen weakness October 17, 2024 1 1:42am gen weakness October 17, 2024 2 :29pm Amb Documentation October 21, 2024 8:19am Catheter Issues October 22, 2024 4:39am CC Adult Risk Stratification October 242023 1:21pm diff breathing October 25, 2024 5:53am bradycardia, CHF, CARMELO-HIGH RISK November 03, 2024 11:24am RENAL HOSP F/U November 11, 2024 1:26pm Amb Documentation December 08, 2024 2 :07pm 3 month f/u-HIGH RISK December 09, 2024 1:24pm Gerd/Diabetes-HIGH RISK December 26, 2 025 12:52pm Reason for Visit Admit Date A-fib October 16, 2024 3 :52pm Back pain with history of spinal surgery October 16, 2024 3:52pm CKD (chronic kidney disease) stage 3, GF R 30-59 ml/min October 16, 2024 3:52pm Diabetes mellitus October 16, 2024 3 :52pm GERD (gastroesophageal reflux disease) D ec2023 3:52pm Hyperlipidemia October 16, 2024 3 :52pm Hypertension October 16, 2024 3 :52pm Hypertensive chronic kidney disease with stage 1 through stage 4 chronic ki October 16, 2024 3:52pm Hypomagnesemia October 16, 2024 3 :52pm Obstructive uropathy October 16, 2024 3:52pm Type 2 diabetes mellitus wit h diabetic chronic kidney disease October 16, 2024 3:52pm Type 2 diabetes mellitus wit h hyperglycemia, with long-term current use of October 16, 2024 3:52pm Acute hyperkalemia October 16, 2024 3 :52pm Acute kidney injury superimposed on CKD October 16, 2024 3:52pm AV junctional bradycardia October 16, 2024 3:52pm Delirium October 16, 2024 3 :52pm CHF (congestive heart failure) October 16, 2024 3:52pm Dehydration October 16, 2024 3 :52pm A-fib November 03, 2024 11:24am Bradycardia November 03, 2024 11:24am CKD (chronic kidney disease), stage IV D ecember 2023 11:24am Lumbar spondylosis November 03, 2024 11:24am Type 2 diabetes mellitus wit h diabetic chronic kidney disease November 03, 2024 11:24am CKD (chronic kidney disease) stage 3, GF R 30-59 ml/min November 11, 2024 1:26pm Hyperlipidemia November 11, 2024 1:26pm Hypertensive chronic kidney disease with stage 1 through stage 4 chronic ki November 11, 2024 1:26pm Secondary hyperparathyroidism October 142023 1:26pm Type 2 diabetes mellitus wit h diabetic chronic kidney disease November 11, 2024 1:26pm Abdominal swelling, generalized December 09, 2024 1:24pm Anxiety December 09, 2024 1 :24pm Bloated abdomen December 09, 2024 1 :24pm GERD (gastroesophageal reflux disease) J anuary 2024 1:24pm Lumbar degenerative disc disease December 09, 2024 1:24pm Chief Complaint Admit Date Catheter Issues October 22, 2024 4:39am CC Adult Risk Stratification October 242023 1:21pm diff breathing October 25, 2024 5:53am bradycardia, CHF, CARMELO-HIGH RISK November 03, 2024 11:24am RENAL HOSP F/U November 11, 2024 1:26pm Amb Documentation December 08, 2024 2 :07pm 3 month f/u-HIGH RISK December 09, 2024 1:24pm Gerd/Diabetes-HIGH RISK December 26, 2 025 12:52pm Gastroesophageal reflux disease (GERD) F ebruary 2024 3:21pm TB ER:Abd Pain/Chronic Pain January 14, 2025 10:00am Reason for Visit Admit Date A-fib November 03, 2024 11:24am Bradycardia November 03, 2024 11:24am CKD (chronic kidney disease), stage IV D ecember 2023 11:24am Lumbar spondylosis November 03, 2024 11:24am Type 2 diabetes mellitus wit h diabetic chronic kidney disease November 03, 2024 11:24am CKD (chronic kidney disease) stage 3, GF R 30-59 ml/min November 11, 2024 1:26pm Hyperlipidemia November 11, 2024 1:26pm Hypertensive chronic kidney disease with stage 1 through stage 4 chronic ki November 11, 2024 1:26pm Secondary hyperparathyroidism October 142023 1:26pm Type 2 diabetes mellitus wit h diabetic chronic kidney disease November 11, 2024 1:26pm Abdominal swelling, generalized December 09, 2024 1:24pm Anxiety December 09, 2024 1 :24pm Bloated abdomen December 09, 2024 1 :24pm GERD (gastroesophageal reflux disease) J anuary 2024 1:24pm Lumbar degenerative disc disease December 09, 2024 1:24pm Abdominal swelling, generalized December 26, 2024 12:52pm Benign essential tremor December 26, 2 025 12:52pm Bloated abdomen December 26, 2024 12:52pm GERD (gastroesophageal reflux disease) F ebruary 2024 12:52pm Lumbar degenerative disc disease Februar y 2024 12:52pm Seborrhea capitis in adult December 12:52pm Type 2 diabetes mellitus wit h diabetic chronic kidney disease December 26, 2024 12:52pm Acute on chronic diastolic CHF (congesti ve heart failure) January 06, 2025 3:21pm CKD (chronic kidney disease), stage IV F ebruary 2024 3:21pm GERD (gastroesophageal reflux disease) F ebruary 2024 3:21pm Lumbar degenerative disc disease Februar y 2024 3:21pm Type 2 diabetes mellitus wit h hyperglycemia, with long-term current use of January 06, 2025 3:21pm Chief Complaint Admit Date CC Adult Risk Stratification October 242023 1:21pm diff breathing October 25, 2024 5:53am bradycardia, CHF, CARMELO-HIGH RISK November 03, 2024 11:24am RENAL HOSP F/U November 11, 2024 1:26pm Amb Documentation December 08, 2024 2 :07pm 3 month f/u-HIGH RISK December 09, 2024 1:24pm Gerd/Diabetes-HIGH RISK December 26, 2 025 12:52pm Gastroesophageal reflux disease (GERD) F [facility] 2024 3:21pm [facility] ER:Abd Pain/Chronic Pain January 14, 2025 10:00am UA January 21, 2025 3:1 9pm Reason for Visit Admit Date A-fib November 03, 2024 11:24am Bradycardia November 03, 2024 11:24am CKD (chronic kidney disease), stage IV D ecember 2023 11:24am Lumbar spondylosis November 03, 2024 11:24am Type 2 diabetes mellitus wit h diabetic chronic kidney disease November 03, 2024 11:24am CKD (chronic kidney disease) stage 3, GF R 30-59 ml/min November 11, 2024 1:26pm Hyperlipidemia November 11, 2024 1:26pm Hypertensive chronic kidney disease with stage 1 through stage 4 chronic ki November 11, 2024 1:26pm Secondary hyperparathyroidism October 142023 1:26pm Type 2 diabetes mellitus wit h diabetic chronic kidney disease November 11, 2024 1:26pm Abdominal swelling, generalized December 09, 2024 1:24pm Anxiety December 09, 2024 1 :24pm Bloated abdomen December 09, 2024 1 :24pm GERD (gastroesophageal reflux disease) J anuary 2024 1:24pm Lumbar degenerative disc disease December 09, 2024 1:24pm Abdominal swelling, generalized December 26, 2024 12:52pm Benign essential tremor December 26, 2 025 12:52pm Bloated abdomen December 26, 2024 12:52pm GERD (gastroesophageal reflux disease) F [facility] 2024 12:52pm Lumbar degenerative disc disease Februar y 2024 12:52pm Seborrhea capitis in adult December 12:52pm Type 2 diabetes mellitus wit h diabetic chronic kidney disease December 26, 2024 12:52pm Acute on chronic diastolic CHF (congesti ve heart failure) January 06, 2025 3:21pm CKD (chronic kidney disease), stage IV F [facility] 2024 3:21pm GERD (gastroesophageal reflux disease) F [facility] 2024 3:21pm Lumbar degenerative disc disease Februar y 2025 3:21pm Type 2 diabetes mellitus wit h hyperglycemia, with long-term current use of January 06, 2025 3:21pm Acute on chronic diastolic CHF (congesti ve heart failure) January 14, 2025 10:00am C. difficile diarrhea January 14, 2025 10 :00am GERD (gastroesophageal reflux disease) M 2024 10:00am Type 2 diabetes mellitus wit h hyperglycemia, with long-term current use of January 14, 2025 10:00am Additional Source Comments INFORMATION SOURCE (unrecogn ized section and content) DATE CREATED AUTHOR 05/10/2018 [facility] DATE CREATED AUTHOR AUTHOR'S ORGANIZ ATION 03/10/2023 [facility] DATE CREATED AUTHOR AUTHOR'S ORGANIZ ATION 10/04/2024 [facility] EPIC DATE CREATED AUTHOR AUTHOR'S ORGANIZ ATION 12/04/2024 [facility] DATE CREATED AUTHOR AUTHOR'S ORGANIZ ATION 12/10/2024 [facility] DATE CREATED AUTHOR AUTHOR'S ORGANIZ ATION 12/21/2024 [facility] REASON FOR VISIT (unrecogniz ed section and content) Reason Comments Sleep Apnea Reason Comments Sore Throat Sporadic x [address] neck done in May 2024 came back WNL. Reason Onset Date Comments sleep study appt 01/06/2025 Reason Onset Date Comments referral to Dr Hurd 01/07/2025 Care Team (unrecognized sect ion and content) Team Status: Active Member Role Status Dates Shantel Steven MD Primary Care Provider Active Team Status: Active Member Role Status Dates Shantel Steven MD Primary Care Provide r, Attending Provider Active Start: October 24, 2024 Team Status: Inactive Member Role Status Dates Shantel Steven MD Primary Care Provider Active Start: October 25, 2024 End: October 25, 2024 Daniele Jane DO Emergency Provider Active Start: October 25, 2024 End: October 25, 2024 Team Status: Inactive Member Role Status Dates Shantel Steven MD Primary Care Provide r, Attending Provider Active Start: November 03, 2024 End: November 03, 2024 Team Status: Active Member Role Status Dates Shantel Steven MD Primary Care Provider Active Start: November 10, 2024 Cherie Rapp MD Attending Provider Active Start : November 10, 2024 Team Status: Inactive Member Role Status Cecille Steven MD Primary Care Provider Active Start: November 11, 2024 End: November 11, 2024 Cherie Rapp MD Attending Provider Active Start : November 11, 2024 End: November 11, 2024 Team Status: Active Member Role Status Dates Shantel Steven MD Primary Care Provider Active Start: December 04, 2024 Nikky Silverman MD Attending Provider Active Sta rt: December 04, 2024 Team Status: Active Member Role Status Dates Shantel Steven MD Primary Care Provider Active Start: December 04, 2024 Asael Sandoval DO Attending Provider Active Sta rt: December 04, 2024 Team Status: Active Member Role Status Cecille Steven MD Primary Care Provider Active Start: December 08, 2024 Wandy Alvarez CMA Attending Provider Active Start: December 08, 2024 Team Status: Inactive Member Role Status Cecille Steven MD Primary Care Provide r, Attending Provider Active Start: December 09, 2024 End: December 09, 2024 Team Status: Inactive Member Role Status Cecille Steven MD Primary Care Provide r, Attending Provider Active Start: December 26, 2024 End: December 26, 2024 Team Status: Inactive Member Role Status Cecille Steven MD Primary Care Provide r, Attending Provider Active Start: January 06, 2025 End: January 06, 2025 Team Status: Inactive Member Role Status Cecille Steven MD Primary Care Provide r, Attending Provider Active Start: January 14, 2025 End: January 14, 2025 Team Status: Inactive Member Role Status Cecille Steven MD Primary Care Provider Active Start: January 21, 2025 End: January 21, 2025 Asael Sandoval DO Attending Provider Active Sta rt: January 21, 2025 End: January 21, 2025 Team Status: Active Member Role Status Cecille Steven MD Primary Care Provider Active Team Status: Inactive Member Role Status Cecille Steven MD Primary Care Provider Active Start: October 22, 2024 End: October 22, 2024 Zhang Norwood DO Emergency Provider Active Sta rt: October 22, 2024 End: October 22, 2024 Team Status: Active Member Role Status Cecille Steven MD Primary Care Provide r, Attending Provider Active Start: October 24, 2024 Team Status: Inactive Member Role Status Dates Shantel Steven MD Primary Care Provider Active Start: October 25, 2024 End: October 25, 2024 Daniele Jane DO Emergency Provider Active Start: October 25, 2024 End: October 25, 2024 Team Status: Inactive Member Role Status Dates Shantel Steven MD Primary Care Provide r, Attending Provider Active Start: November 03, 2024 End: November 03, 2024 Team Status: Active Member Role Status Dates Shantel Steven MD Primary Care Provider Active Start: November 10, 2024 Cherie Rapp MD Attending Provider Active Start : November 10, 2024 Team Status: Inactive Member Role Status Dates Shantel Steven MD Primary Care Provider Active Start: November 11, 2024 End: November 11, 2024 Cherie Rapp MD Attending Provider Active Start : November 11, 2024 End: November 11, 2024 Team Status: Active Member Role Status Dates Shantel Steven MD Primary Care Provider Active Start: December 04, 2024 Nikky Silverman MD Attending Provider Active Sta rt: December 04, 2024 Team Status: Active Member Role Status Dates Shantel Steven MD Primary Care Provider Active Start: December 04, 2024 Asael Sandoval DO Attending Provider Active Sta rt: December 04, 2024 Team Status: Active Member Role Status Dates Shantel Steven MD Primary Care Provider Active Start: December 08, 2024 Wandy Alvarez CMA Attending Provider Active Start: December 08, 2024 Team Status: Inactive Member Role Status Dates Shantel Steven MD Primary Care Provide r, Attending Provider Active Start: December 09, 2024 End: December 09, 2024 Team Status: Inactive Member Role Status Dates Shantel Steven MD Primary Care Provide r, Attending Provider Active Start: December 26, 2024 End: December 26, 2024 Team Status: Inactive Member Role Status Cecille Steven MD Primary Care Provide r, Attending Provider Active Start: January 06, 2025 End: January 06, 2025 Team Status: Inactive Member Role Status Dates Shantel Steven MD Primary Care Provide r, Attending Provider Active Start: January 14, 2025 End: January 14, 2025 Team Status: Active Member Role Status Dates Shantel Steven MD Primary Care Provider Active Start: September 29, 2024 MIKAYLA QuevedoC Attending Provider Active Start: September 29, 2024 Team Status: Inactive Member Role Status Dates Jorge Luis Zavala DO Emergency Provider Active St art: October 16, 2024 End: October 20, 2024 Shantel Steven MD Primary Care Provider Active Start: October 16, 2024 End: October 20, 2024 Mauri Chavira DO Admit Provider Active Start: October 16, 2024 End: October 20, 2024 Ange Vergara MD Other Provider Active Start: 2023 End: October 20, 2024 Renetta Trivedi MD Other Provider Active Start: October 16, 2024 End: October 20, 2024 Kavin Escobar DO Attending Provider Active Start: October 16, 2024 End: October 20, 2024 Team Status: Active Member Role Status Dates Jorge Luis Zavala DO Emergency Provider Active St art: October 16, 2024 Shantel Steven MD Primary Care Provider Active Start: October 16, 2024 Mauri Chavira DO Admit Provider, Othe r Provider Active Start: October 16, 2024 Rachana Bender RN Other Provider Active Star t: October 16, 2024 Lamine Smith MD Other Provider Active Start: 2023 Rica Brownlee MD Other Provider Active Start: October 16, 2024 Damaris Torres MD Other Provider Active Start: October 16, 2024 Ange Vergara MD Attending Provider, Other Provider Active Start: October 16, 2024 Renetta Trivedi MD Other Provider Active Start: October 16, 2024 Team Status: Active Member Role Status Dates Jorge Luis Zavala DO Emergency Provider Active St art: October 17, 2024 Shantel Steven MD Primary Care Provider Active Start: October 17, 2024 Mauri Chavira DO Admit Provider, Othe r Provider Active Start: October 17, 2024 Rachana Bender RN Other Provider Active Star t: October 17, 2024 Lamine Smith MD Other Provider Active Start: 2023 Rica Brownlee MD Other Provider Active Start: October 17, 2024 Damaris Torres MD Other Provider Active Start: October 17, 2024 Ange Vergara MD Other Provider Active Start: 2023 Renetta Trivedi MD Attending Pr ovider, Other Provider Active Start: October 17, 2024 Team Status: Active Member Role Status Dates Jorge Luis Zavala DO Emergency Provider Active St art: October 17, 2024 Shantel Steven MD Primary Care Provider Active Start: October 17, 2024 Mauri Chavira , Admit Provider, Othe r Provider Active Start: October 17, 2024 Rachana Bender RN Other Provider Active Star t: October 17, 2024 Lamine Smith MD Other Provider Active Start: 2023 Rica Brownlee MD Other Provider Active Start: October 17, 2024 Damaris Torres MD Attending Provider, Other Provider Active Start: October 17, 2024 Ange Vergara MD Other Provider Active Start: 2023 Renetta Trivedi MD Other Provider Active Start: October 17, 2024 Team Status: Active Member Role Status Dates Shantel Steven MD Primary Care Provider Active Start: October 21, 2024 Wandy Alvarez CMA Attending Provider Active Start: October 21, 2024 Team Status: Inactive Member Role Status [...] End: January 18, 2024 Franchesca Sullivan APRN FIELD CONTACT TECHNICIAN-C Attending Provider Act chiqui Start: January [...] August 07, 2024 End: August 07, 2024 Facility Maintenance Supervisor Relationship Specialty Start Date End Date Shantel Steven MD [address] [place] [facility] [place] [id number] PCP - General Family Medicine 06/25/24 Facility Maintenance Supervisor Relationship Specialty Start Date End Date Shantel Steven MD [address] [place] [phone] PCP - General Family Medicine 06/25/24 Facility Maintenance Supervisor Relationship Specialty Start Date End Date Shantel Steven MD [address] [place] [facility] [place] [phone] PCP - General Family Medicine 06/25/24 Facility Maintenance Supervisor Relationship Specialty Start Date End Date Shantel Steven MD [address] [place] [phone] PCP - General Family Medicine 06/25/24 Facility Maintenance Supervisor Relationship Specialty Start Date End Date Shantel Steven MD [address] [facility] [place] [phone] PCP - General Family Medicine 06/25/24 Facility Maintenance Supervisor Relationship Specialty Start Date End Date Shantel Steven MD [address] [place] [facility] [place] [phone] PCP - General Family [facility] 06/25/24 Facility Maintenance Supervisor Relationship Specialty Start Date End Date Shantel Steven MD [address] [place] [facility] [place] [facility] [place] [phone] PCP - General Family [facility] 06/25/24 Facility Maintenance Supervisor Relationship Specialty Start Date End Date Shantel Steven MD [address] [place] [facility] [place] [facility] [place] [phone] PCP - General Family Medicine 06/25/24 Team Status: Inactive Member Role Status Dates Shantel Steven MD Primary Care Provider Active Start: January 21, 2025 End: January 21, 2025 Asael Sanodval DO Attending Provider Active Sta rt: January 21, 2025 End: January 21, 2025 Goals (unrecognized section and content) Goals may [...] BE BASED ON THE PRIMARY CLINICAL RECORDS. [facility] [employer] [facility]. provides no warranty or guarantee of the accuracy or completeness of information in this document.
--- NOTE | 2025-01-25 04:25 | ED_ITS ---
HPI - SOB/Dyspnea General Chief Complaint: Shortness of Breath/Dyspnea Stated Complaint: sob Time Seen by Provider: 01/25/25 04:19 Source: patient Mode of arrival: ambulance Limitations: no limitations History of Present Illness HPI Narrative: patient presents complaining of shortness of breath. states ongoing symptoms for 2 weeks. Also states she has pain and points to epigastric region. States pain for 2 weeks. Does have swelling of her lower extremities. No vomiting Related Data Home Medications ?Medication ?Instructions ?Recorded ?Confirmed insulin glargine 100 unit/mL (3 20 unit subcut BEDTIME 04/25/23 01/25/25 mL) subcutaneous pen (Lantus Solostar U-100 Insulin) alprazolam 0.25 mg tablet 0.25 mg PO TID PRN anxiety 04/30/24 01/25/25 levothyroxine 125 mcg tablet 125 mcg PO .acb 04/30/24 01/25/25 oxycodone-acetaminophen 5 mg-325 1 tab PO DAILY PRN pain 04/30/24 01/25/25 mg tablet insulin NPH isoph U-100 human 100 1 unit subcut ACHS 06/09/24 01/25/25 unit/mL (3 mL) subcutaneous pen (Novolin N FlexPen) atorvastatin 20 mg tablet 20 mg PO QPM 06/18/24 01/25/25 biotin 10,000 mcg disintegrating 10,000 mcg PO DAILY 06/18/24 01/25/25 tablet cholecalciferol (vitamin D3) 125 125 mcg PO DAILY 06/18/24 01/25/25 mcg (5,000 unit) tablet (Vitamin D3) rivaroxaban 20 mg tablet (Xarelto) 20 mg PO DAILY 06/18/24 01/25/25 vit C 226 mg-vit E 90 mg-copper 1 cap PO BID 06/18/24 01/25/25 0.8 mg-zinc oxide-lutein 5 mg capsule (PreserVision Lutein) diltiazem HCl 120 mg 120 mg PO .QD 07/14/24 01/25/25 capsule,extended release 24 hr famotidine 20 mg tablet 20 mg PO .qhs 07/24/24 01/25/25 omeprazole 40 mg capsule,delayed 40 mg PO .acb 07/24/24 01/25/25 release buspirone 5 mg tablet 5 mg PO BID 01/25/25 01/25/25 duloxetine 20 mg capsule,delayed 20 mg PO DAILY 01/25/25 01/25/25 release ketoconazole 2 % shampoo 1 applic topical .2 TIMES WEEK 01/25/25 01/25/25 propranolol 40 mg tablet 40 mg PO BID 01/25/25 01/25/25 sucralfate 1 gram tablet 1 g PO AC 01/25/25 01/25/25 Allergies Allergy/AdvReac Type Severity Reaction Status Date / Time Iodinated Contrast Media Allergy Intermediate Hives Verified 01/25/25 04:04 shellfish derived Allergy Intermediate Hives Verified 01/25/25 04:04 Sulfa (Sulfonamide Allergy Rash Verified 01/25/25 04:04 Antibiotics) Review of Systems ROS Status of ROS 10 or more systems reviewed and unremark able except as noted in history and below [facility] Medical History (Updated 01/25/25 @ 11:04 by Martine Ledesma DO) GERD without esophagitis ?K21.9 - Gastro-esophageal reflux disease without esophagitis (ICD-10) Anxiety ?F41.9 - Anxiety disorder, unspecified (ICD-10) Intermittent palpitations ?R00.2 - Palpitations (ICD-10) Acute hyperglycemia ?R73.9 - Hyperglycemia, unspecified (ICD-10) Acute kidney injury ?N17.9 - Acute kidney failure, unspecified (ICD-10) Uncontrolled diabetes mellitus Acute on chronic clinical systolic heart failure ?I50.23 - Acute on chronic systolic (congestive) heart failure (ICD-10) Acute renal failure ?N17.9 - Acute kidney failure, unspecified (ICD-10) Hyperkalemia ?E87.5 - Hyperkalemia (ICD-10) Acute dehydration ?E86.0 - Dehydration (ICD-10) CKD stage 3a, GFR 45-59 ml/min ?N18.31 - Chronic kidney disease, stage 3a (ICD-10) Diabetes mellitus with hyperglycemia, with long-term current use of insulin ?E11.65 - Type 2 diabetes mellitus with hyperglycemia (ICD-10) ?Z79.4 - care home (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9 - Obesity, unspecified (ICD-10) Surgical History History of cholecystectomy ?Z90.49 - Acquired absence of other specified parts of digestive tract (ICD-1 0) History of appendectomy ?Z90.49 - Acquired absence of other specified parts of digestive tract (ICD- 10) History of hysterectomy ?Z90.710 - Acquired absence of both cervix and uterus (ICD-10) H/O lumbosacral spine surgery ?Z98.890 - Other specified postprocedural states (ICD-10) H/O bilateral mastectomy ?Z90.13 - Acquired absence of bilateral breasts and nipples (ICD-10) Family History Other Family history of CHF (congestive heart failure) Family history of cancer Family history of diabetes mellitus Family history of hypertension H/O mastectomy Social History Within the past year, how often did you have a drink containing alcohol: never Within the past year, how often did you have six or more drinks on one occasion: never Score interpretation: A score less than 3 is consistent with normal alcohol consumption. 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 Highest level of school completed/degree received: some college, no degree Do you want help with school or training: No Are you now , , , , never or living with a partner: In a typical week, how many times do you talk on the telephone with family, friends, or neighbors: twice per week How often do you get together with friends or relatives: twice per week How often do you attend hindu or yazidi services: never Do you belong to any clubs or organizations such as hindu groups unions, fraternal or athletic groups, or school groups: no Total score: 2 Score interpretation: A score of greater than or equal to 2 indicates the lowest level of social isolation. Little interest or pleasure in doing things: not at all Feeling down, depressed, or hopeless: not at all Feel stressed/tense/nervous/anxious/difficulty sleeping: not at all Due to disability, difficulty making decisions: No Do you think of yourself as: straight/heterosexual Gender Identity: female Exam Constitutional Vital Signs, click to edit/add: Last Vital Signs Temp 97.4 F L 01/26/25 04:00 Pulse 56 L 01/26/25 05:33 Resp 18 01/26/25 04:00 BP 145/82 H 01/26/25 04:00 Pulse Ox 93 L 01/26/25 04:00 O2 Del Method Nasal Cannula 01/26/25 04:00 O2 Flow Rate 1 01/26/25 04:00 Common normals: no apparent distress, oriented x3, alert and well nourished HENMT Common normals: normocephalic and head/scalp atraumatic Eye Common normals: EOMs intact bilaterally Respiratory Common normals: normal respiratory effort, no retractions and no use of accessory muscles Cardio Common normals: S1 normal heart sound and S2 normal heart sound Rate: bradycardic GI Common normals: soft to palpation Extremity Other: 1+ pitting of her lower ext LUE lymphemdema Neuro Common normals: oriented x3, CN's II-XII intact bilaterally and moves all extremities Psych Appearance: grossly normal Course Vital Signs Vital signs: Vital Signs Temperature 97.7 F 01/25/25 03:58 Pulse Rate 61 01/25/25 03:58 Respiratory Rate 24 H 01/25/25 03:58 Blood Pressure 189/80 H 01/25/25 03:58 Pulse Oximetry 99 01/25/25 03:58 Oxygen Delivery Method Nasal Cannula 01/25/25 03:58 Oxygen Delivery Flow Rate 4 01/25/25 03:58 Temperature 97.4 F L 01/26/25 04:00 Pulse Rate 56 L 01/26/25 05:33 Respiratory Rate 18 01/26/25 04:00 Blood Pressure 145/82 H 01/26/25 04:00 Pulse Oximetry 93 L 01/26/25 04:00 Oxygen Delivery Method Nasal Cannula 01/26/25 04:00 Oxygen Delivery Flow Rate 1 01/26/25 04:00 MDM - SOB/Dyspnea MDM Narrative Medical decision making narrative: patient presents complaining of shortness of breath for 2 weeks and epigastric pain for 2 weeks. past history of IDDM and CHF. She denies nausea or vomiting. Has noted swelling of her legs. labs reveal potassium 2.7 that was supplemented in the department. BNP elevated, troponin normal and EKG NSR without acute changes. cxray report pending. Lasix 40 IVP ordered cxray demonstrated left pleural effusion and pulmonary vascular congestion. Radiology concerned about possible airspace disease. Clinically I don't suspect pneumonia as she is afebrile. Symptoms for 2 weeks and WBC 7.5. Hospitalist paged for admission Lab Data Labs: Lab Results 01/25/25 Range/Units 04:10 WBC 7.5 (4.0-11.0) 10^3/uL RBC 4.19 L (4.20-5.40) 10^6/uL Hgb 12.7 (12.0-16.0) g/dL Hct 38.5 (36.0-48.0) % MCV 91.9 (81.0-99.0) fL MCH 30.3 (26.7-34.0) pg MCHC 33.0 (29.9-35.2) g/dL RDW 14.5 (11.0-15.0) % Plt Count 229 (150-450) 10^3/uL MPV 10.8 (9.5-13.5) fL Neut % (Auto) 68.2 (43.0-75.0) % Lymph % (Auto) 19.2 L (20.5-60.0) % [place] % (Auto) 9.5 (1.7-12.0) % Eos % (Auto) 1.6 (0.9-7.0) % Baso % (Auto) 1.1 (0.2-2.0) % Neut # (Auto) 5.1 (1.4-6.5) 10^3/uL Lymph # (Auto) 1.4 (1.2-3.8) 10^3/uL [place] # (Auto) 0.7 (0.3-0.8) 10^3/uL Eos # (Auto) 0.1 (0.0-0.7) 10^3/uL Baso # (Auto) 0.1 (0.0-0.1) 10^3/uL Abs Immat Gran (auto) 0.03 (0.00-0.03) 10^3/uL Imm/Tot Granulo (auto) 0.4 (0.0-0.5) % Sodium 144 (136-145) mmol/L Potassium 2.7 L* (3.5-5.1) mmol/L Chloride 104 (98-107) mmol/L Carbon Dioxide 34.6 H (21.0-32.0) mmol/L Anion Gap 8.1 BUN 22.0 H (7.0-18.0) mg/dL Creatinine 1.49 H (0.55-1.02) mg/dL Est GFR ( Amer) 41 L (>=60 mL/min/1.73m^2) Est GFR (Non-Af Amer) 34 L (>=60 mL/min/1.73m^2) BUN/Creatinine Ratio 14.8 Glucose 121 H (74-106) mg/dL Calcium 8.1 L (8.5-10.1) mg/dL Troponin I High Sens 34.7 (4.0-51.3) pg/mL NT-Pro-B Natriuret Pep 7089.0 H* (<=1800.0) pg/mL Discharge Plan Discharge Chief Complaint: Shortness of Breath/Dyspnea Clinical Impression: CHF (congestive heart failure), Hypokalemia, Pleural effusion on left Patient Disposition: Admitted as Observation Discharge Date/Time: 01/25/25 07:30
[2025-01-25 04:39] LABS: Basophils Absolute Auto 0.1 10^3/uL (0.0-0.1); Basophils Percent Auto 1.1 % (0.2-2.0); Eosinophils Absolute Auto 0.1 10^3/uL (0.0-0.7); Eosinophils Percent Auto 1.6 % (0.9-7.0); Hematocrit 38.5 % (36.0-48.0); Hemoglobin 12.7 g/dL (12.0-16.0); Immature Granulocytes Abs Auto 0.03 10^3/uL (0.00-0.03); Immature Granulocytes Pct Auto 0.4 % (0.0-0.5); Lymphocytes Absolute Auto 1.4 10^3/uL (1.2-3.8); Lymphocytes Percent Auto 19.2 % (20.5-60.0); Mean Corpuscular Hemoglobin 30.3 pg (26.7-34.0); Mean Corpuscular Volume 91.9 fL (81.0-99.0); Mean Platelet Volume 10.8 fL (9.5-13.5); Monocytes Absolute Auto 0.7 10^3/uL (0.3-0.8); Monocytes Percent Auto 9.5 % (1.7-12.0); Neutrophils Absolute Auto 5.1 10^3/uL (1.4-6.5); Neutrophils Percent Auto 68.2 % (43.0-75.0); Platelet Count 229 10^3/uL (150-450); Red Blood Count 4.19 10^6/uL (4.20-5.40); Red Cell Distribution Width 14.5 % (11.0-15.0); White Blood Count 7.5 10^3/uL (4.0-11.0)
[2025-01-25 04:57] LABS: Anion Gap 8.1; BUN Creatinine Ratio 14.8; Calcium 8.1 mg/dL (8.5-10.1); Carbon Dioxide 34.6 mmol/L (21.0-32.0); Chloride 104 mmol/L (98-107); Estimated GFR (African America 41 (>=60 mL/min/1.73m^2); Estimated GFR (Non-African Ame 34 (>=60 mL/min/1.73m^2); Glucose 121 mg/dL (74-106); Sodium 144 mmol/L (136-145); Troponin I High Sensitivity 34.7 pg/mL (4.0-51.3)
[2025-01-25 04:59] LABS: Potassium 2.7 mmol/L (3.5-5.1)
--- NOTE | 2025-01-25 05:17 | ECG_ITS ---
[facility] Test Date: 2025-01-25 Pat Name: JOE CALL Department: Room: - Gender: Female Shampooer: : 1945 Requested By: Order Number: [id number] Reading MD: RICA MEDRANO M.D. Measurements Intervals [place] Rate: 56 P: 57 AK: 172 QRS: 19 QRSD: 108 T: 77 QT: 444 QTc: 437 Interpretive Statements 1100 Sinus rhythm 3114 Cannot rule out anterior myocardial infarction, age undetermined 9150 abnormal ECG Compared to ECG 12/04/2024 16:10:17 Myocardial infarct finding now present Electronically Signed On 01-25-2025 7:19:48 EDT by RICA MEDRANO M.D.
[2025-01-25] MEDS: POTASSIUM CHLORIDE 10 MEQ ER TABLET 40 MEQ PO (05:40)
[2025-01-25] MEDS: FUROSEMIDE 40 MG/4 ML VIAL IVP (05:40)
[2025-01-25] MEDS: CLONIDINE HCL 0.1 MG TABLET PO (06:48)
--- OUTSIDE RECORDS SUMMARY | 2025-01-25 07:38 | XMS_ITS | CCD ---
Author Organization [facility] [employer]iniSynd Care Team Providers Care Billposting Supervisor Name Role Phone UNKNOWN, PROVIDER Unavailable [...] LAMINE Cramer Consulting Unavailabl e SAMANTHA, DR LAIMNE Cramer Admitting Unavailabl e SAMANTHA, DR LAMINE [...] Care Provider MD Shantel Steven Other Provider [phone] MD Eloina Hussein Attending Provider MD Eloina Hussein Referring Provider DO Jorge Luis Zavala Emergency Provider [phone] MD Shantel Steven Primary Care Provider DO Jorge Luis Zavala Emergency Provider MD Shantel Steven Primary Care Provider MD Shantel Steven Attending Provider MD Shantel Steven Attending Provider [phone] Steven Shantel ESCOBAR Primary Care Provider LIZETT JACINTO Attending Unavailable SHANTEL STEVEN Referring Unavailable JOSEPHSCHRISTEL Attending Unavailable SHANTEL STEVEN Referring Unavailable TIMMISCHRISTEL Attending Unavailable SHANTEL STEVEN Referring Unavailable SABRINA LUNA Attending Unavailable SABRINA LUNA Attending Unavailable YAMEL MCCRACKEN Attending Unavailable YAMEL MCCRACKEN Attending Unavailable YMAEL MCCRACKEN Attending Unavailable RICA KAPLAN Attending Unavailable [...] Care Provider Mauri Chavira DO Admit Provider Ange Vergara MD Other Provider Renetta Trivedi MD Other Provider Kavin Escobar DO Attending Provider Zhang Norwood DO Emergency Provider [phone] Daniele Jane DO Emergency Provider Shantel Cho MD Primary Care Provider Zhang Norwood DO Emergency Provider Daniele Jane DO Emergency Provider Shantel Cho MD Primary Care Provider Allergies Allergy Classification Reported Allergen(s) Allergy Type Date of Onset Reaction(s) Facility (1 source) Iodine (And Iodine Containting Drugs) Drug allergy (disorder) 03-04-20 12 [facility] Repository (20 sources) Shellfish; Translations: [Shellfish] Food allergy (disorder) 03-04-20 12 rash, Eruption of skin (disorder) [facility] (20 sources) Sulfonamides (Antibiotic); Translations: [SULFA (SULFONAMIDE ANTIBIOTICS)] Drug allergy (disorder) 03-04-20 12 Rash [facility] (20 sources) Sulfacetamide Drug Allergy 02-15-20 24 diarrhea [facility] (20 sources) Contrast media; Translations: [contrast media (iodine-based)] Drug allergy 02-15-20 24 Unknown (qualifier value), Rash [facility] (6 sources) Sulfonamides (Antibiotic); Translations: [sulfa drugs] Drug allergy Diarrhea (finding) [facility] (2 sources) Glucosamine Drug Allergy [facility] (2 sources) Iodine (And Iodine Containting Drugs) Drug allergy (disorder) 08-09-20 17 [facility] (11 sources) Contrast media Propensity to adverse reactions 11-18-[address] DYE [facility] [employer] Other (20 sources) Iodine; Translations: [IODINE] Drug Allergy 10-30-20 14 Other, Unknown [facility] Other (20 sources) Substance with sulfonamide structure and antibacterial mechanism of action (substance) Drug allergy 10-30-20 14 Unknown [facility] Other (11 sources) Dyes Propensity to adverse reactions Comment:CT Dyes,Dyes,IVP Dyes [facility] [employer] Other (19 sources) Shellfish; Translations: [SHELLFISH DERIVED] Allergy to substance 10-30-20 14 [facility] (19 sources) Iodinated Contrast Media; Translations: [IODINATED CONTRAST MEDIA] Allergy to substance 02-15-20 24 [facility] (12 sources) metFORMIN Drug Allergy 07-03-20 24 [facility] (6 sources) Chocolate Flavoring Agent (Non-Screening) Propensity to adverse reactions 01-17-[address] [facility] [employer] Work Phone: (12 sources) Shellfish-Derive d Products Drug Intolerance 03-15-20 18 [facility] (7 sources) Chocolate; Translations: [CHOCOLATE FLAVOR] Propensity to adverse reactions 01-17-[address] [facility] [employer] Work Phone: (1 source) Sulfacetamide Drug Allergy [...] once daily Biotin 10,000 mcg capsule Discontinued 59077 MCG PO daily June 05, 2024 12:00am November 03, 2024 12:41pm Start: 01-17-2024 End: 04-03-2024 take 1 capsule by mouth once daily Biotin 5 mg capsule Discontinued 5 MG PO Daily January 17, 2024 1:00am April 03, 2024 11:46am take 1 capsule by [facility] every twenty-four hours Biotin 5 MG [...] 05, 2024 12:02pm take 1 capsule by [facility] every twenty-four hours Vitamin D3 125 MCG (5000 UT) 1 capsule Orally Once a day Active take 1 capsule by [facility] every twenty-four hours Vitamin D3 25 MCG (1000 UT) 1 capsule Orally Once a day Active cholestyramine resin 4000 mg powder for oral suspension (5 sources) Bile Acid Sequestrant Start: 03-07-2021 Questran 4 g/9 g ora l powder = 1 packet(s), Oral, Daily, # 30 EA, Refills(s) 11, Pharmacy: [facility], 165.1, cm, 03/07/21 13:49:00 EDT, Height/Length Dosing, 121.8, kg, 03/07/21 13:49:00 EDT, Weight Dosing Start Date: 03/07/21 Status: Ordered Start: 03-07-2021 Questran 4 g/9 g oral powder = 1 packet(s), Oral, Daily, # 30 EA, Refills(s) 11, Pharmacy: [facility], 165.1, cm, 03/07/21 13:49:00 EDT, Height/Length [...] Ordered Start: 06-19-2021 take 1 capsule by [facility] once daily Diltiazem Hcl 120 mg capsule,extended release 24hr Active 120 MG PO Daily June 19, 2021 12:00am End: 07-22-2024 take 1 tablet by mouth in the morning dilTIAZem (Cardizem) 120 MG immediate release tablet Take 120 mg by mouth in the morning. 07/22/2024 Discontinued (Duplicate order) take 1 capsule by mo [facility] every twelve hours dilTIAZem HCl ER [...] 3:14pm Start: 01-07-2023 take 1 tablet by [facility] every twenty-four hours Famotidine 20 [...] Glucose Scanning Reade r (Freestyle Familia 2 Joshua) misc (7 sources) Start: 09-10-2024 Flash Glucose Scanning Joshua (Freestyle Familia 2 Joshua) misc Active 0 .Route 1 September 10, 2024 8:12am As directed Start: 09-10-2024 Flash Glucose Scanning Joshua (Freestyle Familia 2 Joshua) misc Active 0 .Route 1 September 10, 2024 7:12am As directed Start: 07-16-2024 End: 09-10-2024 Flash Glucose Scanning Reade r (Freestyle Familia 2 Joshua) misc Discontinued 0 .Route July 16, 2024 12:00am September 10, 2024 8:13am As directed Start: 07-16-2024 End: 09-10-2024 Flash Glucose Scanning Reade r (Freestyle Familia 2 Joshua) misc Discontinued 0 .Route July 15, 2024 11:00pm September 10, 2024 7:13am As directed Start: 07-16-2024 Flash Glucose Scanning Joshua (Freestyle Familia 2 Joshua) misc Active 0 .Route 1 July 16, [...] capsule Orally Once a day Active Vitamins A,C,F-Veex-Vcvyuy (Preservision Areds) 4,296 mcg-226 mg-90 mg capsule (14 sources) Start: 01-17-2024 take 1 capsule by mouth twice daily Vitamins A,C,O-Tfzl-Vrksrz (Preservision Areds) 4,296 mcg-226 mg-90 mg capsule Active 1 CAP PO Twice daily January 17, 2024 12:00am Start: 01-17-2024 take 1 capsule by mo uth twice daily Vitamins A,C,W-Wzdt-Tyvtew (Preservision Areds) 4,296 mcg-226 mg-90 mg capsule [...] 19, 2021 3:13am Start: 06-12-2021 End: 06-19-2021 [id number] 200 actuat albuterol 0.09 mg/actuat metered dose [...] bedtime Orally Once a day Not-Taking amylase 580969 unt / lipase 77776 unt / protease 38714 unt delayed release oral capsule (20 sources) Start: End: Jyzxuc-Fwjcvqgb-Rqz lase (Creon) 24,000-76,000 -120,000 unit capsule,delayed release(DR/EC) Discontinued 1 - 2 CAP PO 1-2 TIMES DAILY June 11, 2021 12:00am June 19, 2021 3:12am Start: 06-11-2021 End: 06-19-2021 Start: 05-10-2021 Creon 24,000 u nits oral delayed release capsule See Instructions, take 3 caps with each meal and 2 caps with each snack., # 390 caplet(s), Refills(s) 0, Pharmacy: [facility], 165.1, cm, 04/18/21 13:02:00 EDT, Height/Length [...] by joesph th every twenty-four hours nystatin 686223 unt/ml topical cream (20 sources) Polyene Antifungal [...] application topically if needed 06/05/2024 Active Nystatin 837548 UNIT/GM 1 application Externally Twice a day for 10 days Active Nystatin 258796 UNIT/GM 1 application Externally Twice a day for 10 days Active nystatin 391441 unt/ml / triamcinolone acetonide 1 mg/ml topical [...] June 05, 2024 11:06am swish and swallow [place] 8-Ieq-Ahk-Fish Oil (Fish Oil) 1,000 mg (120 mg-180 mg) capsule (14 sources) Start: 01-17-2024 End: 04-03-2024 take 1 capsule by mouth once daily [place] 1-Dcx-Sef-Fish Oil (Fish Oil) 1,000 mg (120 mg-180 mg) capsule Discontinued 1 CAP PO Daily January 17, 2024 12:00am April 03, 2024 10:49am Start: 01-17-2024 End: 04-03-2024 take 1 capsule by mouth once daily [place] 7-Mla-Okc-Fish Oil (Fish Oil) 1,000 mg (120 mg-180 mg) capsule Discontinued 1 CAP PO Daily January 17, 2024 1:00am April 03, 2024 11:49am Start: 01-17-2024 take 1 capsule by mo [facility] once daily [place] 1-Jew-Ekq-Fish Oil (Fish Oil) 1,000 mg (120 mg-180 [...] Start: 10-25-2024 End: 11-03-2024 Sodium Chloride (Nasal [place] (Sodium Chloride)) 0.65 % aerosol,spray Discontinued 1 [...] 07, 2024 12:01pm take 1 tablet by [facility] every twenty-four hours Spironolactone 25 [...] Coronary arteriosclerosis; Translations: [Atherosclerotic heart disease of [place] coronary artery without angina pectoris] Onset: 2 [...] sources) Long-term current use of insulin; Translations: [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] Onset: 4 Resolved: 4 01-17-2024 Episodic Other aftercare (5 sources) [facility] (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 insulin; Translations: [CULL GRADER CURRENT USE OF INSULIN] Onset: 3 Episodic Other aftercare (1 source) Other termite helper (current) drug therapy; Translations: [OTH CULL GRADER CURRENT DRUG THERAPY] Onset: 3 Episodic Other aftercare (1 source) [facility] (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 anticoagulants; Translations: [[facility] CURRNT USE 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] Onset: 3 Episodic Other [...] Basophils (Bld) [#/Vol] Automated basophil count 0.0-0.1 [facility] Basophils/100 WBC Auto (Bld) on 12-04-2024 [...] 12-04-2024 Albumin [Mass/Vol] 2.7 g/dL Low 3.4-5.0 [facility] ALP [Catalytic activity/Vol] 111 U/L 46-116 [facility] ALT [Catalytic activity/Vol] 19 U/L 14-59 [facility] AST [Catalytic activity/Vol] 16 U/L 15-37 [facility] Bilirubin [Mass/Vol] 0.6 mg/dL 0.2-1.0 [facility] Calcium [Mass/Vol] 8.7 mg/dL 8.5-10.1 [facility] Chloride [Moles/Vol] 101 mmol/L 98-107 [facility] CO2 [Moles/Vol] 29.9 mmol/L 21.0-32.0 [facility] Creatinine [Mass/Vol] 1.24 mg/dL High 0.55-1.02 [facility] GFR/1.73 sq M.predicted MDRD (S/P/Bld) [Vol rate/Area] 51 mL/min/{1.73_m2} Low >=60 mL/min/1.73 m 2 [facility] Glucose [Mass/Vol] 310 mg/dL High 74-106 [facility] Natriuretic peptide B (Bld) [Mass/Vol] 3884.0 pg/mL Critically high <=1800.0 [facility] Comment on above: RESULTS CALLED TO MAIK RANGEL RN Potassium [Moles/Vol] 4.3 mmol/L 3.5-5.1 [facility] Protein [Mass/Vol] 7.0 g/dL 6.4-8.2 [facility] Sodium [Moles/Vol] 138 mmol/L 136-145 [facility] Urea nitrogen [Mass/Vol] 28.0 mg/dL [...] Eosinophils # (Auto) 0.1 10 3/uL 0.0-0.7 [facility] Immature Granulocyte # (Auto) 0.02 [...] - [place] Office Visiton 12-02-2024 Follow-up visit [id number] Joe Call 1945 F Date Provider Department Center 12/02/2024 [id number]-ZOTOVMSABRINA LUNA LOVE Bruno Family History Problem Relation Age of Onset Coronary artery disease Other Diabetes Other Polycystic kidney disease Other Family Status - Relation Status Age at Other Level of Service:91081 CT OFFICE/OUTPATIENT ESTABLISHED MOD MDM 30 MIN Reason for Visit and Comments: Atrial Fibrillation [80] Congestive Heart Failure [127] - Had BMP 3 weeks ago. Taking lasix PRN. Hypertension [251353] Bradycardia [184175] Normal [facility] 36on 11-18-2024 36 Regarding lab result s from 11/03/2024: MD Brooke Sawyer MA Creatinine appears to be better. Patient's made aware. [facility] Ambulatory Visit Summaryon 0 11-13-2024 Ambulatory Visit Summary Ambulatory Visit Summary JOE CALL :1945 Visit Date:11/13/2024 Ambulatory Visit Instructions Your Diagnosis Urine retention Your Care Team Attending Physician - FRANCHESCA PERAZA PA-C Primary Care Physician - SHANTEL SETVEN MD This Is Your Medications List acetaminophen-oxycodone [...] FRANCHESCA PERAZA PA-C Where: [facility] [address] [place] [place] [address] [place] [address]- 2024 11:20 AM EST With: FRANCHESCA PERAZA PA-C Where: [facility] [address] [place] [address] [place] [address]- Medications What How Much When Why Instructions [...] for choosing us for your care. Normal [facility] Estimated glomerular filtrat ion rate (GFR) non- Americanon 11-10-2024 GFR/1.73 sq M.predicted among non-blacks MDRD (S/P/Bld) [Vol rate/Area] Estimated glomerular filtration rate (GFR) non- Low >=60 mL/min/1.73 m 2 [facility] Laboratory - Chemistry and C hemistry - challengeon 11-10-2024 Albumin [Mass/Vol] 3.0 g/dL Low 3.4-5.0 [facility] Calcium [Mass/Vol] 8.5 mg/dL 8.5-10.1 [facility] Chloride [Moles/Vol] 99 mmol/L 98-107 [facility] CO2 [Moles/Vol] 26.2 mmol/L 21.0-32.0 [facility] Creatinine [Mass/Vol] 2.00 mg/dL High 0.55-1.02 [facility] GFR/1.73 sq M.predicted MDRD (S/P/Bld) [Vol rate/Area] 29 mL/min/{1.73_m2} Low >=60 mL/min/1.73 m 2 [facility] Glucose [Mass/Vol] 424 mg/dL High 74-106 [facility] Potassium [Moles/Vol] 4.5 mmol/L 3.5-5.1 [facility] Sodium [Moles/Vol] 136 mmol/L 136-145 [facility] Urea nitrogen [Mass/Vol] 58.0 mg/dL High 7.0-18.0 [facility] Urea nitrogen/Creatinine [Mass ratio] 29.0 mg/mg [facility] No Panel Informationon 11-10 Phosphorus Level 3.6 mg/dL 2.6-4.7 [facility] Serum or plasma anion gap de terminationon 11-10-2024 Anion gap [Moles/Vol] Serum or plasma an ion gap determination [facility] Urology Office/Clinic Noteon 11-04-2024 Urology Office/Clinic Note Urology Office/Clinic Note Chief Complaint Hospital follow up HPI Staff Pt. did see Dr. Gallardo about 20 years ago Admitted [facility] 10/16 after going to ER for weakness/SOB [...] note of the bladder scan anywhere on [facility] system or output volume once peacock placed). /pt state she was NOT having trouble urinating. She was bedridden due to the pacer and the staff was using a PureWick, but they think she was voiding too much for the PureWick to handle/starting to get skin breakdown so they think that is why the peacock was placed. Peacock placed and remained at hospital fl, no void trial attempted. Dc'd 10/20. Urine cx 10/22 neg. Has been having a lot of pain and discomfort from the peacock. Not tolerating it well. Follows w nephrology for CKD. Still Operator Gin 10/25/24 1.31 compared to 3.06 on 10/20/24 [...] E&M of New Patient High 60-74 Min 78882 2. CKD (chronic kidney disease) (N18.9: Chronic kidney disease, unspecified) Follows w Dr Rapp Still Operator Gin 1.31 on day of dc (10/25/24) Most recent labs 11/03/24 - BUN 34 Still Operator Gin 1.86 GFR 26 Pretty variable all year. (Results scanned into documents) Will repeat in 1 week after peacock removal. Sees Dr Rapp either 11/10 or 11/11. Ordered: E&M of New Patient High 60-74 Min 77451 Renal Function Panel 3. Stress incontinence (N39.3: Stress incontinence (female) (male)) At baseline. Typically when stands from seated position or coughing. 2-4 pads per day. Reassess baseline sx at f/u in 4-6 wks. Ordered: E&M of New Patient High 60-74 Min 57621 Total time spent reviewing previous notes/results/external documents, preparing the chart, conducting the encounter with the patient and family, ordering tests/medications, and documenting the encounter was 60 minutes. Follow-up With When Contact Information SYDNIE HASSAN Within 6 weeks [address] [place] [address] Business (1) Additional Instructions: Patient [...] acetaminophen-oxycodone 3 (more content not included)... Normal [facility] Comment on above: Result Comment: Elec tronically [...] challengeon 11-03-2024 Calcium [Mass/Vol] 8.8 mg/dL 8.5-10.1 [facility] Chloride [Moles/Vol] 99 mmol/L 98-107 [facility] CO2 [Moles/Vol] 23.1 mmol/L 21.0-32.0 [facility] Creatinine [Mass/Vol] 1.86 mg/dL High 0.55-1.02 [facility] GFR/1.73 sq M.predicted MDRD (S/P/Bld) [Vol rate/Area] 32 mL/min/{1.73_m2} Low >=60 mL/min/1.73 m 2 [facility] Glucose [Mass/Vol] 367 mg/dL High 74-106 [facility] Potassium [Moles/Vol] 4.7 mmol/L 3.5-5.1 [facility] Sodium [Moles/Vol] 134 mmol/L Low 136-145 [facility] Urea nitrogen [Mass/Vol] 34.0 mg/dL High 7.0-18.0 [facility] Urea nitrogen/Creatinine [Mass ratio] 18.3 mg/mg [facility] Serum or plasma anion gap de terminationon 11-03-2024 Anion gap [Moles/Vol] Serum or plasma an ion gap determination [facility] Office Visiton 10-31-2024 Follow-up visit [id number] Joe Call Bela 1945 F Date Provider Department Center 10/31/2024 [id number]-EAMVLUSABRINA TIRADO LOVE Bruno Family History Problem Relation Age of Onset Coronary artery disease Other Diabetes Other Polycystic kidney disease Other Family Status - Relation Status Age at Other Level of Service:31426 CT OFFICE/OUTPATIENT ESTABLISHED MOD MDM 30 MIN Normal [facility] B-Type Natriuretic Peptideon 10-25-2024 Natriuretic peptide B (Bld) [Mass/Vol] 455.0 pg/mL High 5-100 [facility] Comment on above: Result Comment: PERF ORMED BY: [facility] [address] [place] [address] PATHOLOGIST PRINT BINDING WORKER MAY HYDE M.D. Performed By: #### G LULS #### Point of Care testing , Basic Metabolic Panelon 10-12 Anion gap [Moles/Vol] 13.0 mmol/L Normal 6.0-15.0 [facility] Comment on above: Performed By: #### G LULS #### Point of Care testing , Calcium [Mass/Vol] 8.6 mg/dL Normal 8.6-10.3 [facility] Comment on above: Performed By: #### G LULS #### Point of Care testing , Chloride [Moles/Vol] 101 mmol/L Normal 98-107 [facility] Comment on above: Performed By: #### G LULS #### Point of Care testing , CO2 [Moles/Vol] 23.8 mmol/L Normal 21.0-31.0 [facility] Comment on above: Performed By: #### G LULS #### Point of Care testing , Creatinine [Mass/Vol] 1.31 mg/dL High 0.60-1.20 [facility] Comment on above: Performed By: #### G LULS #### Point of Care testing , Creatinine Clr Calc Pharmacy 46.58 Normal [facility] Comment on above: Result Comment: PERF ORMED BY: [facility] [place] [address] PATHOLOGIST PRINT BINDING WORKER MAY HYDE M.D. Performed By: #### G LULS #### Point of Care testing , Estimated GFR 41.704 mL/Min Normal [facility] Comment on above: Performed By: #### G LULS #### Point of Care testing , Glucose [Mass/Vol] 232 mg/dL High 70-100 [facility] Comment on above: Result Comment: [place] Glucose Reference Range is dependent on time and content of last meal. Glucose of more than 200 mg/dL in a nonstressed, ambulatory subject supports the diagnosis of Diabetes Mellitus. ADA recommended reference range Performed By: #### G LULS #### Point of Care testing , Potassium [Moles/Vol] 4.8 mmol/L Normal 3.5-5.1 [facility] Comment on above: Performed By: #### G LULS #### Point of Care testing , Sodium [Moles/Vol] 133 mmol/L Low 136-145 [facility] Comment on above: Performed By: #### G LULS #### Point of Care testing , Urea nitrogen [Mass/Vol] 39 mg/dL High 7-25 [facility] Comment on above: Performed By: #### G LULS #### Point of Care testing , Basophils Auto (Bld) [#/Vol] Ordered By: Daniele Jane on 10-25-2024 Basophils (Bld) [#/Vol] Automated basophil count 0.0-0.2 [facility] Basophils/100 WBC Auto (Bld) Ordered By: [...] or Cepheid Disclaimer revoked sooner. PERFORMED BY: [address] [place] [address] PATHOLOGIST PRINT BINDING WORKER MAY HYDE M.D. Normal [facility] Comment on above: [...] (Unsp spec) Positive Critically abnormal Negative [facility] Comment on above: Result Comment: This is a duplicate CepLitespriteid Xpert Xpress CoV-2/Flu/RSV Plus RNA by RT-PCR result to be used for statistical tracking purpose only. PERFORMED BY: [address] [place] [address] PATHOLOGIST PRINT BINDING WORKER MAY HYDE M.D. Performed By: #### G LULS #### Point of Care testing , Chloride [Moles/volume] in S oziel or PlasmaOrdered By: Daniele Jane on 10-25-2024 Chloride [Moles/Vol] Chloride [Moles/vol ume] in Serum or Plasma 98-107 [facility] Complete Blood Count Auto Di ffon 10-25-2024 Basophils (Bld) [#/Vol] 0.1 10*3/uL Normal 0.0-0.2 [facility] Comment on above: Result Comment: PERF ORMED BY: [address] [address] PATHOLOGIST PRINT BINDING WORKER MAY HYDE M.D. Performed By: #### G LULS #### Point of Care testing , Basophils/100 WBC (Bld) 0.9 % Normal . [facility] Comment on above: Performed By: #### G LULS #### Point of Care testing , Eosinophils (Bld) [#/Vol] 0.1 10*3/uL Normal 0.0-0.45 [facility] Comment on above: Performed By: #### G LULS #### Point of Care testing , Eosinophils/100 WBC (Bld) 1.5 % Normal . [facility] Comment on above: Performed By: #### G LULS #### Point of Care testing , Erythrocyte distribution width (RBC) [Ratio] 15.3 % Normal 11.9-15.3 [facility] Comment on above: Performed By: #### G LULS #### Point of Care testing , Hematocrit (Bld) [Volume fraction] 36.2 % Normal 34.0-46.4 [facility] Comment on above: Performed By: #### G LULS #### Point of Care testing , Hemoglobin (Bld) [Mass/Vol] 12.2 g/dL Normal 11.8-15.4 [facility] Comment on above: Performed By: #### G LULS #### Point of Care testing , Lymphocytes (Bld) [#/Vol] 0.8 10*3/uL Low 1.00-4.8 [facility] Comment on above: Performed By: #### G LULS #### Point of Care testing , Lymphocytes/100 WBC (Bld) 9.8 % Normal . [facility] Comment on above: Performed By: #### G LULS #### Point of Care testing , MCH (RBC) [Entitic mass] 29.5 pg Normal 24.7-34.3 [facility] Comment on above: Performed By: #### G LULS #### Point of Care testing , MCV (RBC) [Entitic vol] 87.6 fL Normal 80-100 [facility] Comment on above: Performed By: #### G LULS #### Point of Care testing , Mean Corpuscular HGB Conc 33.7 g/dL Normal 32.0-35.0 [facility] Comment on above: Performed By: #### G LULS #### Point of Care testing , Monocytes (Bld) [#/Vol] 0.8 10*3/uL Normal 0.0-0.8 [facility] Comment on above: Performed By: #### G LULS #### Point of Care testing , Monocytes/100 WBC (Bld) 25.33 % High 0.00-20.00 [facility] Comment on above: Result Comment: For adults in ED, MDW > 20.0 may be associated with a higher risk of sepsis during the first 12 hrs of hospital admission Performed By: #### G LULS #### Point of Care testing , Monocytes/100 WBC (Bld) 10.7 % Normal . [facility] Comment on above: Performed By: #### G LULS #### Point of Care testing , Neutrophils (Bld) [#/Vol] 6.1 10*3/uL Normal 1.8-7.7 [facility] Comment on above: Performed By: #### G LULS #### Point of Care testing , Neutrophils/100 WBC (Bld) 77.1 % Normal . [facility] Comment on above: Performed By: #### G LULS #### Point of Care testing , NRBC% 0.1 /100{WBC} Normal 0-0.5 [facility] Comment on above: Performed By: #### G LULS #### Point of Care testing , Platelet mean volume (Bld) [Entitic vol] 9.0 fL Normal 6.3-10.7 [facility] Comment on above: Performed By: #### G LULS #### Point of Care testing , Platelets (Bld) [#/Vol] 142 10*3/uL Low 150-450 [facility] Comment on above: Performed By: #### G LULS #### Point of Care testing , RBC (Bld) [#/Vol] 4.13 10*6/uL Normal 3.60-5.00 [facility] Comment on above: Performed By: #### G LULS #### Point of Care testing , WBC (Bld) [#/Vol] 7.9 10*3/uL Normal 3.8-11.6 [facility] Comment on above: Performed By: #### G LULS #### Point of Care testing , Creatinine [Mass/volume] in Serum or PlasmaOrdered By: Daniele Jane on 10-25-2024 Creatinine [Mass/Vol] Creatinine [Mass/v olume] in Serum or Plasma High 0.60-1.20 [facility] ECG 12 lead ECGon 10-25-2024 ECG 12 lead ECG [facility] [place] [address] Electrocardiograph Report Signed Patient: Joe Call MR#: [id number] 0 : 1945 Acct:[id number] Age/Sex: 79 / F ADM Date: 10/25/24 Loc: ER Room: Type: [facility] ER Attending Dr: Ordering Provider: Daniele Jane [...] sinus arrhythmia Confirmed by Daniele Jane DO ([id number]) on 10/25/2024 2:01:48 PM Referred By: Electronically Signed By: Daniele Jane DO Transcribed By: MUS Signed By Daniele Jane DO 1401 Normal [facility] Eosinophils Auto (Bld) [#/Vo [...] Lymphocytes/100 WBC Auto (Bl d)Ordered By: Daniele Jane on 10-25-2024 Lymphocytes/100 WBC (Bld) Lymphocytes/100 leukocytes in Blood by Automated count . [facility] MCH Auto (RBC) [Entitic mass ]Ordered By: Daniele Jaen on 10-25-2024 MCH (RBC) [Entitic mass] MCH [...] [Time] 28.6 s Normal 25.1-36.5 [facility] Comment on above: Result Comment: A he matocrit value greater than 55% may lead to inaccurate results in coagulation testing. Patients having hematocrit values >55% require a special collection tube for coagulation studies. Please contact the laboratory at [phone] for redraw instructions. PERFORMED BY: [facility] [address] [place] [address] PATHOLOGIST [employer] WORKER MAY HYDE M.D. Performed By: #### G [...] (PPP) [Relative time] 1.2 {INR} Normal [facility] Comment on above: Result [...] (PPP) [Time] 13.5 s High 9.0-12.9 [facility] Comment on above: Result Comment: A he matocrit value greater than 55% may lead to inaccurate results in coagulation testing. Patients having hematocrit values >55% require a special collection tube for coagulation studies. Please contact the laboratory at [phone] for redraw instructions. Performed By: #### G [...] coagulation studies. Please contact the laboratory at [phone] for redraw instructions. RBC Auto (Bld) [#/Vol]Ordere [...] High Sensitivity 14.6 pg/mL Normal 0.0-15.0 [facility] Comment on above: Result Comment: PERF ORMED BY: [facility] [address] [place] [address] PATHOLOGIST [employer] WORKER MAY HYDE M.D. Performed By: #### G [...] 1V portableon 10-25 XR chest 1V portable [facility] Main [place] [address] [place] [address] XRay Report Signed Patient: Joe Call MR#: [id number] 0 : 1945 Acct:[id number] Age/Sex: 79 / F ADM Date: 10/25/24 Loc: ER Room: Type: [facility] ER Attending Dr: Copies to: Daniele Jane [...] Jarred Randolph M.D.10/25/2024 7:35 AM Dictation Location: [place] [address] Transcribed By: [facility] 10/25/24 0735 Dictated By: Jarred Randolph DO 10/25/24 0734 Signed By: 10/25/24 0735 Normal [facility] aPTT in Platelet poor [...] coagulation studies. Please contact the laboratory at [phone] for redraw instructions. Appearance of UrineOrdered B y: Zhang Norwood on 10-22-2024 Appearance (U) Urine appearance Abnormal Clear [facility] Bacteria [Presence] in Urine by AutomatedOrdered [...] Color of Urine by Auto Yellow Fi [facility] Dipstick and Microscopicon 1 12-23-2023 Appearance (U) Cloudy Critically abnormal Clear [facility] Comment on above: Order Comment: Name Collection Type:: Peacock Catheter Performed By: #### M G, BMP #### [facility] [address] [place] [id number] [place] Bacteria,Urine None Seen Normal None Seen [facility] Comment on above: Order Comment: Name Collection Type:: Peacock Catheter Performed By: #### M G, BMP #### [facility] [address] [place] [address] [place] Bilirubin,Urine Negative Normal Negative [facility] Comment on above: Order Comment: Name Collection Type:: Peacock Catheter Performed By: #### M G, BMP #### [facility] [address] [place] [address] [place] Calcium Oxalate Crystals,Urine Rare Normal [facility] Comment on above: Order Comment: Name Collection Type:: Peacock Catheter Performed By: #### M G, BMP #### [facility] [address] [place] [address] [place] Color (U) Yellow Normal Yellow [facility] Comment on above: Order Comment: Name Collection Type:: Peacock Catheter Performed By: #### M G, BMP #### [facility] [address] [place] [address] [place] Glucose Ql (U) 30 mg/dL High Normal [facility] Comment on above: Order Comment: Name Collection Type:: Peacock Catheter Performed By: #### M G, BMP #### [place] [address] [place] Hyaline Casts,Urine 0 [LPF] Normal 0-8 [facility] Comment on above: Order Comment: Name Collection Type:: Peacock Catheter Performed By: #### M G, BMP #### [address] Ketones Ql (U) Negative Normal Negative [facility] Comment on above: Order Comment: Name Collection Type:: Peacock Catheter Performed By: #### M G, BMP #### [address] Leukocyte esterase Test strip Ql (U) 1+ High Negative [facility] Comment on above: Order Comment: Name Collection Type:: Peacock Catheter Performed By: #### M G, BMP #### [place] [address] [place] Mucus,Urine Rare Normal [facility] Comment on above: Order Comment: Name Collection Type:: Peacock Catheter Result Comment: PERF ORMED BY: [place] [address] PATHOLOGIST [employer] WORKER MAY HYDE M.D. Performed By: #### M G, BMP #### [place] [address] [place] Nitrite,Urine Negative Normal Negative [facility] Comment on above: Order Comment: Name Collection Type:: Peacock Catheter Performed By: #### M G, BMP #### [place] [address] [place] Occult Blood,Urine 3+ High Negative [facility] Comment on above: Order Comment: Name Collection Type:: Peacock Catheter Result Comment: PERF ORMED BY: [place] [address] PATHOLOGIST [employer] B[employer] WORKER MAY HYDE M.D. Performed By: #### M G, BMP #### [address] pH (U) 5.5 [pH] Normal 5.0-9.0 [facility] Comment on above: Order Comment: Name Collection Type:: Peacock Catheter Performed By: #### M G, BMP #### [address] Protein (U) [Mass/Vol] 300 mg/dL High Negative [facility] Comment on above: Order Comment: Name Collection Type:: Peacock Catheter Performed By: #### M G, BMP #### [address] RBC,Urine Innumerable High 0-4 [facility] Comment on above: Order Comment: Name Collection Type:: Peacock Catheter Performed By: #### M G, BMP #### [address] Specificy [place],Urine 1.019 Normal 1.001-1.030 [facility] Comment on above: Order Comment: Name Collection Type:: Peacock Catheter Performed By: #### M G, BMP #### [place] [address] [place] Squamous Epithelial Cell,Urine 1 [HPF] Normal 0-2 [facility] Comment on above: Order Comment: Name Collection Type:: Peacock Catheter Performed By: #### M G, BMP #### [address] Urobilinogen,Urine Normal Normal Normal [facility] Comment on above: Order Comment: Name Collection Type:: Peacock Catheter Performed By: #### M G, BMP #### [place] [address] [place] WBC,Urine 10 [HPF] High 0-4 [facility] Comment on above: Order Comment: Name Collection Type:: Peacock Catheter Performed By: #### M G, BMP #### [place] [address] [place] Epithelial cells.squamous [# /area] in Urine [...] Glucose [Mass/volume] in Urine by Test strip [facility] Normal [facility] Hemoglobin Test strip Ql (U) Ordered By: Zhang Norwood on 10-22-2024 Hemoglobin Ql (U) Hemoglobin [Presence ] in Urine by Test strip [facility] Negative [facility] [...] esterase [Presence] in Urine by Test strip [facility] Negative [facility] Leukocytes [#/area] in Urine sediment by Automated countOrdered By: Zhang Norwood on 10-22-2024 WBC Auto (Urine sed) [#/Area] Leukocytes [#/area] in Urine sediment by Automated count [facility] 0-4 [facility] [...] bacterial skin contaminants 2 Days PERFORMED BY: [place] [address] PATHOLOGIST [employer] WORKER MAY HYDE M.D. Normal [facility] Comment on above: Performed By: #### M G, BMP #### [address] Urine cultureOrdered By: Hortensia Norwood on [...] 10-20-2024 Glucose [Mass/Vol] 292 mg/dL Normal [facility] Comment on above: Result Comment: PERF ORMED BY: [place] [address] PATHOLOGIST [employer] B[employer] WORKER MAY HYDE M.D. Performed By: #### G LULS #### Point of Care testing , HbA1c (Bld) [Mass fraction] 11.8 % High 4.3-5.6 [facility] Comment on above: Result Comment: Incr eased risk for diabetes: 5.7 - 6.4 diabetes: >6.4 glycemic control for adults with diabetes: <7.0 Performed By: #### G MICK #### Point of Care testing , Basic Metabolic Panelon 12-0 Anion gap [Moles/Vol] Not performed Normal 6.0-15.0 [facility] Comment on above: Performed By: #### Vandana Cramer, BMP #### [facility] [address] Calcium [Mass/Vol] 8.7 mg/dL Normal 8.6-10.3 [facility] Comment on above: Performed By: #### Vandana Cramer, BMP #### [facility] [address] Chloride [Moles/Vol] 97 mmol/L Low 98-107 [facility] Comment on above: Performed By: #### Vandana Cramer, BMP #### [facility] [address] CO2 [Moles/Vol] 26.0 mmol/L Normal 21.0-31.0 [facility] Comment on above: Performed By: #### Vandana Cramer, BMP #### [facility] [address] [place] [address] [place] Creatinine [Mass/Vol] 3.06 mg/dL High 0.60-1.20 [facility] Comment on above: Performed By: #### Vandana Cramer, BMP #### [facility] [address] [place] [address] [place] Creatinine Clr Calc Pharmacy 18.79 Normal [facility] Comment on above: Performed By: #### Vandana Cramer, BMP #### [facility] [address] [place] [address] [place] Estimated GFR 15.067 mL/Min Normal [facility] Comment on above: Performed By: #### Vandana Cramer, BMP #### [address] Glucose [Mass/Vol] 159 mg/dL Significant change up 70-100 [facility] Comment on above: Result Comment: [facility] Glucose Reference Range is dependent on time and content of last meal. Glucose of more than 200 mg/dL in a nonstressed, ambulatory subject supports the diagnosis of Diabetes Mellitus. ADA recommended reference range Performed By: #### M G, BMP #### [facility] [address] Potassium Normal 3.5-5.1 [facility] Comment on above: Result Comment: Spec imen hemolyzed, redraw requested Performed By: #### M Bela, BMP #### [facility] [address] Sodium Normal 136-145 [facility] Comment on above: Result Comment: Spec imen hemolyzed, redraw requested Performed By: #### Vandana Cramer, BMP #### [facility] [address] Urea nitrogen [Mass/Vol] 91 mg/dL High 7-25 [facility] Comment on above: Performed By: #### Vandana Cramer, BMP #### [facility] [address] Blood estimated average gluc ose determination [...] 12-21-2023 Glucose [Mass/Vol] 209 mg/dL Normal [facility] Comment on above: Result Comment: [place] [facility] Glucose Reference Range is dependent on time and content of last meal. Glucose of more than 200 mg/dL in a nonstressed, ambulatory subject supports the diagnosis of Diabetes Mellitus. PERFORMED BY: [place] [address] PATHOLOGIST PR[employer] BINDING WORKER MAY HYDE M.D. Performed By: #### Vandana Cramer, BMP #### [facility] [address] [place] [address] [facility] Glucose [Mass/Vol] 164 mg/dL Normal [facility] Comment on above: Result Comment: [place] [facility] Glucose Reference Range is dependent on time and content of last meal. Glucose of more than 200 mg/dL in a nonstressed, ambulatory subject supports the diagnosis of Diabetes Mellitus. PERFORMED BY: [place] [id number] PATHOLOGIST PR[employer] B[employer]ING WORKER MAY HYDE M.D. Performed By: #### Vandana Cramer, BMP #### [facility] [address] [place], [place] [id number] [place] Glucose [Mass/volume] in Ser um or [...] <7.0 Magnesiumon 10-20-2024 Magnesium Normal 1.9-2.7 [facility] Comment on above: Result Comment: Spec imen hemolyzed, redraw requested PERFORMED BY: [address] [address] PATHOLOGIST PR[employer] B[employer]ING WORKER MAY HYDE M.D. Performed By: #### Vandana Cramer, [facility] #### [place] [id number] [facility] Magnesium [Mass/volume] in S [...] [Moles/volume] in Serum or PlasmaOrdered By: Mauri Chavira on 10-20-2024 Potassium [Moles/Vol] Potassium [Moles/v olume] in Serum or Plasma 3.5-5.1 [facility] Redraw Magnesiumon Magnesium [Mass/Vol] 1.9 mg/dL Normal 1.9-2.7 [facility] Comment on above: Result Comment: PERF ORMED BY: [address] [address] PATHOLOGIST PR[employer] B[employer]ING WORKER MAY HYDE M.D. Performed By: #### M G, BMP #### [facility] [address] [place] [address] Redraw Magnesium Normal 1.9-2.7 [facility] Comment on above: Result Comment: Spec imen hemolyzed, redraw requested PERFORMED BY: [place] [address] PATHOLOGIST PR[employer] B[employer]ING WORKER MAY HYDE M.D. Performed By: #### M G, BMP #### [address] Redraw Potassiumon Potassium [Moles/Vol] 4.0 mmol/L Normal 3.5-5.1 [facility] Comment on above: Performed By: #### M G, BMP #### [address] Redraw Potassium Normal 3.5-5.1 [facility] Comment on above: Result Comment: Spec imen hemolyzed, redraw requested Performed By: #### M G, BMP #### [address] Redraw Sodiumon 10-20-2024 Sodium [Moles/Vol] 134 mmol/L Low 136-145 [facility] Comment on above: Performed By: #### M G, BMP #### [address] Serum or plasma anion gap de [...] [Moles/Vol] 14.7 mmol/L Normal 6.0-15.0 [facility] Comment on above: Performed By: #### Vandana G, BMP #### [facility] [address] [place] [id number] [facility] Calcium [Mass/Vol] 9.1 mg/dL Normal 8.6-10.3 [facility] Comment on above: Performed By: #### Vandana G, BMP #### [facility] [address] [place] [address] [place] Chloride [Moles/Vol] 95 mmol/L Low 98-107 [facility] Comment on above: Performed By: #### Vandana G, BMP #### [facility] [address] [place] [address] [place] CO2 [Moles/Vol] 28.6 mmol/L Normal 21.0-31.0 [facility] Comment on above: Performed By: #### Vandana G, BMP #### [facility] [address] [place] [address] [place] Creatinine [Mass/Vol] 2.71 mg/dL Significan t change up 0.60-1.20 [facility] Comment on above: Performed By: #### Vandana G, BMP #### [facility] [address] [place] [id number] [place] Creatinine Clr Calc Pharmacy 21.49 Normal [facility] Comment on above: Performed By: #### Vandana G, BMP #### [facility] [address] [place] [id number] [place] Estimated GFR 17.432 mL/Min Normal [facility] Comment on above: Performed By: #### Vandana G, BMP #### [facility] [address] [place] [id number] [facility] Glucose [Mass/Vol] 288 mg/dL High 70-100 [facility] Comment on above: Result Comment: [place] Glucose Reference Range is dependent on time and content of last meal. Glucose of more than 200 mg/dL in a nonstressed, ambulatory subject supports the diagnosis of Diabetes Mellitus. ADA recommended reference range Performed By: #### M G, BMP #### [address] Potassium [Moles/Vol] 4.3 mmol/L Normal 3.5-5.1 [facility] Comment on above: Performed By: #### M G, BMP #### [address] Sodium [Moles/Vol] 134 mmol/L Low 136-145 [facility] Comment on above: Performed By: #### M G, BMP #### [address] Urea nitrogen [Mass/Vol] 77 mg/dL High 7-25 [facility] Comment on above: Performed By: #### M G, BMP #### [address] Glucose Poct Glucometerson 1 12-20-2023 Glucose [Mass/Vol] 222 mg/dL Normal [facility] Comment on above: Result Comment: [facility] Glucose Reference Range is dependent on time and content of last meal. Glucose of more than 200 mg/dL in a nonstressed, ambulatory subject supports the diagnosis of Diabetes Mellitus. PERFORMED BY: [place] [address] PATHOLOGIST [employer] B[employer] WORKER MAY HYDE M.D. Performed By: #### Vandana G, BMP #### [address] Glucose [Mass/Vol] 306 mg/dL Normal [facility] Comment on above: Result Comment: [place] Glucose Reference Range is dependent on time and content of last meal. Glucose of more than 200 mg/dL in a nonstressed, ambulatory subject supports the diagnosis of Diabetes Mellitus. PERFORMED BY: [place] [address] PATHOLOGIST PR[employer] B[employer]ING WORKER MAY HYDE M.D. Performed By: #### Vandana G, BMP #### [address] [place] [address] [place] Glucose [Mass/Vol] 342 mg/dL Normal [facility] Comment on above: Result Comment: [place] [facility] Glucose Reference Range is dependent on time and content of last meal. Glucose of more than 200 mg/dL in a nonstressed, ambulatory subject supports the diagnosis of Diabetes Mellitus. PERFORMED BY: [place] [address] PATHOLOGIST PR[employer] B[employer]ING WORKER MAY HYDE M.D. Performed By: #### Vandana Cramer, BMP #### [address] Glucose [Mass/Vol] 267 mg/dL Normal [facility] Comment on above: Result Comment: [place] Glucose Reference Range is dependent on time and content of last meal. Glucose of more than 200 mg/dL in a nonstressed, ambulatory subject supports the diagnosis of Diabetes Mellitus. PERFORMED BY: [place] [address] PATHOLOGIST PR[employer] B[employer]ING WORKER MAY HYDE M.D. Performed By: #### Vandana Cramer, BMP #### [address] Magnesiumon 10-19-2024 Magnesium [Mass/Vol] 2.0 mg/dL Normal 1.9-2.7 [facility] Comment on above: Result Comment: PERF ORMED BY: [place] [address] PATHOLOGIST [employer] B[employer]ING WORKER MAY HYDE M.D. Performed By: #### Vandana Cramer, BMP #### [address] Basic Metabolic Panelon 12-0 Anion gap [Moles/Vol] 15.4 mmol/L High 6.0-15.0 [facility] Comment on above: Order Comment: REY PARKER NOTIFIED. SMB 0442. Performed By: #### Vandana Cramer, KAREN, TSH3, T4F ####[address] Calcium [Mass/Vol] 9.5 mg/dL Normal 8.6-10.3 [facility] Comment on above: Order Comment: REY PARKER NOTIFIED. SMB 0442. Performed By: #### Vandana Cramer, KAREN, TSH3, T4F ####[place] [id number] [facility] Chloride [Moles/Vol] 97 mmol/L Low 98-107 [facility] Comment on above: Order Comment: REY PARKER NOTIFIED. SMB 0442. Performed By: #### Vandana Cramer, KAREN, TSH3, T4F ####[place] [id number] [facility] CO2 [Moles/Vol] 29.7 mmol/L Normal 21.0-31.0 [facility] Comment on above: Order Comment: REY PARKER NOTIFIED. SMB 0442. Performed By: #### KAREN Hansen, TSH3, T4F ####[place] [id number] [facility] Creatinine [Mass/Vol] 1.81 mg/dL High 0.60-1.20 [facility] Comment on above: Order Comment: REY PARKER NOTIFIED. SMB 044. Performed By: #### Vandana Cramer, KAREN, TSH3, T4F ####[place] [id number] [facility] Creatinine Clr Calc Pharmacy 32.95 Normal [facility] Comment on above: Order Comment: REY PARKER NOTIFIED. SMB 044. Performed By: #### Vandana Cramre, KAREN, TSH3, T4F ####[place] [id number] [facility] Estimated GFR 28.294 mL/Min Normal [facility] Comment on above: Order Comment: REY PARKER NOTIFIED. SMB 0442. Performed By: #### Vandana Cramer, KAREN, TSH3, T4F ####[place] [id number] [facility] Glucose [Mass/Vol] 220 mg/dL High 70-100 [facility] Comment on above: Order Comment: REY PARKER NOTIFIED. SMB 0442. Result Comment: [facility] Glucose Reference Range is dependent on time and content of last meal. Glucose of more than 200 mg/dL in a nonstressed, ambulatory subject supports the diagnosis of Diabetes Mellitus. ADA recommended reference range Performed By: #### M G, BMP, TSH3, T4F ####[id number] [place] [address] [facility] Potassium [Moles/Vol] 4.1 mmol/L Normal 3.5-5.1 [facility] Comment on above: Order Comment: REY PARKER NOTIFIED. SMB 0442. Performed By: #### M G, BMP, TSH3, T4F ####[place] [id number] [facility] Sodium [Moles/Vol] 138 mmol/L Normal 136-145 [facility] Comment on above: Order Comment: REY PARKER NOTIFIED. SMB 0442. Performed By: #### M G, BMP, TSH3, T4F ####[address] [address] [facility] Urea nitrogen [Mass/Vol] 66 mg/dL High 7-25 [facility] Comment on above: Order Comment: REY PARKER NOTIFIED. SMB 0442. Performed By: #### M G, BMP, TSH3, T4F ####[address] [address] [facility] Free T4 (Free Thyroxine)on 12-19-2023 Free T4 [Mass/Vol] 1.26 ng/dL High 0.61-1.12 [facility] Comment on above: Order Comment: REY PARKER NOTIFIED. SMB 0442. Performed By: #### M G, BMP, TSH3, T4F ####[place] [id number] [facility] Glucose Poct Glucometerson 12-19-2023 Glucose [Mass/Vol] 329 mg/dL Normal [facility] Comment on above: Result Comment: [facility] Glucose Reference Range is dependent on time and content of last meal. Glucose of more than 200 mg/dL in a nonstressed, ambulatory subject supports the diagnosis of Diabetes Mellitus. PERFORMED BY: [place] [address] PATHOLOGIST [employer] BINDING WORKER MAY HYDE M.D. Performed By: #### G MICK #### Point of Care testing , Glucose [Mass/Vol] 210 mg/dL Normal [facility] Comment on above: Result Comment: [place] [facility] Glucose Reference Range is dependent on time and content of last meal. Glucose of more than 200 mg/dL in a nonstressed, ambulatory subject supports the diagnosis of Diabetes Mellitus. PERFORMED BY: [place] [address] PATHOLOGIST PR[employer] BINDING WORKER MAY HYDE M.D. Performed By: #### Vandana Cramer, BMP #### [address] Glucose [Mass/Vol] 251 mg/dL Normal [facility] Comment on above: Result Comment: [place] Glucose Reference Range is dependent on time and content of last meal. Glucose of more than 200 mg/dL in a nonstressed, ambulatory subject supports the diagnosis of Diabetes Mellitus. PERFORMED BY: [place] [address] PATHOLOGIST PRINT BINDING WORKER MAY HYDE M.D. Performed By: #### M Bela, BMP #### [address] Glucose [Mass/Vol] 207 mg/dL Normal [facility] Comment on above: Result Comment: [place] [facility] Glucose Reference Range is dependent on time and content of last meal. Glucose of more than 200 mg/dL in a nonstressed, ambulatory subject supports the diagnosis of Diabetes Mellitus. PERFORMED BY: [place] [address] PATHOLOGIST PRINT BINDING WORKER MAY HYDE M.D. Performed By: #### Vandana Cramer, BMP #### [place] [address] [place] Glucose [Mass/Vol] 188 mg/dL Normal [facility] Comment on above: Result Comment: [facility] Glucose Reference Range is dependent on time and content of last meal. Glucose of more than 200 mg/dL in a nonstressed, ambulatory subject supports the diagnosis of Diabetes Mellitus. PERFORMED BY: [facility] [address] [place] [address] PATHOLOGIST PRINT BINDING WORKER MAY HYDE M.D. Performed By: #### Vandana Cramer, BMP #### [facility] [id number] [facility] Magnesiumon 10-18-2024 Magnesium [Mass/Vol] 2.1 mg/dL Normal 1.9-2.7 [facility] Comment on above: Order Comment: REY PARKER NOTIFIED. SMB 0442. Performed By: #### Vandana Cramer, KAREN, TSH3, T4F ####[facility] Serum or plasma thyroperoxid ase antibody assay (units/volume)Ordered By: Mauri Chavira on 10-18-2024 TPO Ab Qn Serum or plasma thyroperoxidase antibody assay (units/volume) 0-34 [facility] Comment on above: Performed at: [place] [facility] [place] [id number] Director: Dimitri Landis PhD, Phone: [phone] Thyroid Peroxidase Antibodie son 10-18-2024 Thyroid Peroxidase Antibodies <9 Normal 0-34 [facility] Comment on above: Order Comment: REY PARKER NOTIFIED. SMB 0442. Result Comment: Perf ormed at: [facility] [place] [id number] Calibrator Barometers: Dimitri Landis PhD, Phone: [phone] PERFORMED BY: [place] [address] PATHOLOGIST PRINT BINDING WORKER MAY HYDE M.D. Performed By: #### T PO #### [facility] , Thyroid Stimulating Hormoneo n 10-18-2024 TSH Qn 1.86 m[IU]/L Normal 0.45-5.33 The [facility] Comment on above: Order Comment: REY PARKER NOTIFIED. SMB 5397. Result Comment: PERF ORMED BY: [facility] [address] [place] [address] PATHOLOGIST PR[employer] B[employer]ING WORKER MAY HYDE M.D. Performed By: #### M G, BMP, TSH3, T4F ####[facility] [address] [place] [address] [facility] Thyrotropin [Units/volume] i n [...] Basophils (Bld) [#/Vol] Automated basophil count 0.0-0.2 [facility] Basophils/100 WBC Auto (Bld) Ordered By: [...] (Bld) [#/Vol] 0.1 10*3/uL Normal 0.0-0.2 [facility] Comment on above: Result Comment: PERF ORMED BY: [place] [address] PATHOLOGIST PR[employer] BINDING WORKER MAY HYED M.D. Performed By: #### Vandana Cramer, BMP #### [address] Basophils/100 WBC (Bld) 0.8 % Normal . [facility] Comment on above: Performed By: #### Vandana Cramer, BMP #### [address] Eosinophils (Bld) [#/Vol] 0.1 10*3/uL Normal 0.0-0.45 [facility] Comment on above: Performed By: #### Vandana Cramer, BMP #### [place] [address] [place] Eosinophils/100 WBC (Bld) 0.7 % Normal . [facility] Comment on above: Performed By: #### Vandana Cramer, BMP #### [address] Erythrocyte distribution width (RBC) [Ratio] 15.4 % High 11.9-15.3 [facility] Comment on above: Performed By: #### Vandana Cramer, BMP #### [address] Hematocrit (Bld) [Volume fraction] 40.4 % Normal 34.0-46.4 [facility] Comment on above: Performed By: #### Vandana G, BMP #### [address] Hemoglobin (Bld) [Mass/Vol] 13.3 g/dL Normal 11.8-15.4 [facility] Comment on above: Performed By: #### Vandana G, BMP #### [address] Lymphocytes (Bld) [#/Vol] 1.4 10*3/uL Normal 1.00-4.8 [facility] Comment on above: Performed By: #### Vandana Cramer, BMP #### [address] Lymphocytes/100 WBC (Bld) 15.2 % Normal . [facility] Comment on above: Performed By: #### Vandana Cramer, BMP #### [address] MCH (RBC) [Entitic mass] 29.3 pg Normal 24.7-34.3 [facility] Comment on above: Performed By: #### Vandana Cramer, BMP #### [address] MCV (RBC) [Entitic vol] 88.8 fL Normal 80-100 [facility] Comment on above: Performed By: #### Vandana G, BMP #### [address] Mean Corpuscular HGB Conc 33.0 g/dL Normal 32.0-35.0 [facility] Comment on above: Performed By: #### Vandana G, BMP #### [address] Monocytes (Bld) [#/Vol] 0.7 10*3/uL Normal 0.0-0.8 [facility] Comment on above: Performed By: #### Vandana G, BMP #### [facility] [address] [place] [address] [place] Monocytes/100 WBC (Bld) 7.2 % Normal . [facility] Comment on above: Performed By: #### Vandana Cramer, BMP #### [facility] [address] [place] [address] [place] Neutrophils (Bld) [#/Vol] 7.0 10*3/uL Normal 1.8-7.7 [facility] Comment on above: Performed By: #### Vandana Cramer, BMP #### [place] [address] [place] Neutrophils/100 WBC (Bld) 76.1 % Normal . [facility] Comment on above: Performed By: #### Vandana Cramer, BMP #### [address] NRBC% 0.0 /100{WBC} Normal 0-0.5 [facility] Comment on above: Performed By: #### Vandana Cramer, BMP #### [address] Platelet mean volume (Bld) [Entitic vol] 9.5 fL Normal 6.3-10.7 [facility] Comment on above: Performed By: #### M Bela, BMP #### [place] [id number] [place] Platelets (Bld) [#/Vol] 183 10*3/uL Normal 150-450 [facility] Comment on above: Performed By: #### M Bela, BMP #### [place] [id number] [place] RBC (Bld) [#/Vol] 4.55 10*6/uL Normal 3.60-5.00 [facility] Comment on above: Performed By: #### M Bela, BMP #### [place] [id number] [place] WBC (Bld) [#/Vol] 9.2 10*3/uL Normal 3.8-11.6 [facility] Comment on above: Performed By: #### M Bela, BMP #### [address] Comprehensive Metabolic Pane daniele 10-17-2024 Albumin [Mass/Vol] 3.5 g/dL Normal 3.5-5.7 [facility] Comment on above: Performed By: #### Vandana Cramer, BMP #### [place] [id number] [facility] Albumin/Globulin [Mass ratio] 0.9 {ratio} Normal [facility] Comment on above: Performed By: #### Vandana Cramer, BMP #### [address] ALP [Catalytic activity/Vol] 99 U/L Normal 34-104 [facility] Comment on above: Performed By: #### Vandana Cramer, BMP #### [address] ALT [Catalytic activity/Vol] 42 U/L Normal 7-52 [facility] Comment on above: Performed By: #### Vandana Cramer, BMP #### [address] Anion gap [Moles/Vol] 14.7 mmol/L Normal 6.0-15.0 [facility] Comment on above: Performed By: #### Vandana Cramer, BMP #### [address] AST [Catalytic activity/Vol] 35 U/L Normal 13-39 [facility] Comment on above: Performed By: #### Vandana Cramer, BMP #### [address] Bilirubin [Mass/Vol] 0.6 mg/dL Normal 0.3-1.0 [facility] Comment on above: Performed By: #### Vandana Cramer, BMP #### [address] Calcium [Mass/Vol] 9.6 mg/dL Normal 8.6-10.3 [facility] Comment on above: Performed By: #### Vandana Cramer, BMP #### [address] Chloride [Moles/Vol] 99 mmol/L Normal 98-107 [facility] Comment on above: Performed By: #### M G, BMP #### [address] CO2 [Moles/Vol] 25.3 mmol/L Normal 21.0-31.0 The [facility] Comment on above: Performed By: #### M G, BMP #### [address] Creatinine [Mass/Vol] 1.99 mg/dL High 0.60-1.20 [facility] Comment on above: Performed By: #### M G, BMP #### [address] Creatinine Clr Calc Pharmacy 29.98 Normal [facility] Comment on above: Performed By: #### M G, BMP #### [address] Estimated GFR 25.252 mL/Min Normal [facility] Comment on above: Performed By: #### M G, BMP #### [address] Globulin (S) [Mass/Vol] 3.9 g/dL Normal [facility] Comment on above: Performed By: #### M G, BMP #### [address] Glucose [Mass/Vol] 228 mg/dL High 70-100 [facility] Comment on above: Result Comment: [place] Glucose Reference Range is dependent on time and content of last meal. Glucose of more than 200 mg/dL in a nonstressed, ambulatory subject supports the diagnosis of Diabetes Mellitus. ADA recommended reference range Performed By: #### M G, BMP #### [address] Potassium [Moles/Vol] 5.0 mmol/L Normal 3.5-5.1 [facility] Comment on above: Performed By: #### M G, BMP #### [address] Protein [Mass/Vol] 7.4 g/dL Normal 6.4-8.9 [facility] Comment on above: Performed By: #### Vandana Cramer, BMP #### [address] Sodium [Moles/Vol] 134 mmol/L Low 136-145 [facility] Comment on above: Performed By: #### M Bela, BMP #### [address] Urea nitrogen [Mass/Vol] 67 mg/dL High 7-25 [facility] Comment on above: Performed By: #### Vandana Cramer, BMP #### [address] Eosinophils Auto (Bld) [#/Vo l]Ordered By: [...] 12-18-2023 Glucose [Mass/Vol] 245 mg/dL Normal [facility] Comment on above: Result Comment: [facility] Glucose Reference Range is dependent on time and content of last meal. Glucose of more than 200 mg/dL in a nonstressed, ambulatory subject supports the diagnosis of Diabetes Mellitus. PERFORMED BY: [place] [address] PATHOLOGIST PR[employer] BINDING WORKER MAY HYDE M.D. Performed By: #### G LULS #### Point of Care testing , Glucose [Mass/Vol] 335 mg/dL Normal [facility] Comment on above: Result Comment: [place] Glucose Reference Range is dependent on time and content of last meal. Glucose of more than 200 mg/dL in a nonstressed, ambulatory subject supports the diagnosis of Diabetes Mellitus. PERFORMED BY: [place] [address] PATHOLOGIST PR[employer] BINDING WORKER MAY HYDE M.D. Performed By: #### Vandana Cramer, BMP #### [address] Glucose [Mass/Vol] 324 mg/dL Normal [facility] Comment on above: Result Comment: [place] Glucose Reference Range is dependent on time and content of last meal. Glucose of more than 200 mg/dL in a nonstressed, ambulatory subject supports the diagnosis of Diabetes Mellitus. PERFORMED BY: [place] [address] PATHOLOGIST PRINT BINDING WORKER MAY HYDE M.D. Performed By: #### Vandana Cramer, BMP #### [address] Glucose [Mass/Vol] 253 mg/dL Normal [facility] Comment on above: Result Comment: [place] Glucose Reference Range is dependent on time and content of last meal. Glucose of more than 200 mg/dL in a nonstressed, ambulatory subject supports the diagnosis of Diabetes Mellitus. PERFORMED BY: [place] [address] PATHOLOGIST PR[employer] BINDING WORKER MAY HYDE M.D. Performed By: #### Vandana rCamer, BMP #### [address] Hematocrit Auto (Bld) [Volum e fraction]Ordered [...] Magnesium [Mass/Vol] 1.6 mg/dL Low 1.9-2.7 [facility] Comment on above: Result Comment: PERF ORMED BY: [facility] [address] [facility] [place] [address] PATHOLOGIST [employer] B[employer]ING WORKER MAY HYDE M.D. Performed By: #### M Bela, BMP #### [facility] [address] [id number] [facility] Monocytes Auto (Bld) [#/Vol] [...] (Bld) [Mass/Vol] 547.0 pg/mL High 5-100 [facility] Comment on above: Result Comment: PERF ORMED BY: [facility] [address] [place] [address] PATHOLOGIST PR[employer] B[employer]ING WORKER MAY HYDE M.D. Performed By: #### M G, BMP #### [address] Basic Metabolic Panelon 12-0 Anion gap [Moles/Vol] 18.1 mmol/L High 6.0-15.0 [facility] e [facility] Comment on above: Performed By: #### B MP ####[address] Calcium [Mass/Vol] 9.7 mg/dL Significant change down 8.6-10.3 [facility] Comment on above: Performed By: #### B MP ####[address] Chloride [Moles/Vol] 100 mmol/L Normal 98-107 [facility] Comment on above: Performed By: #### B MP ####[address] CO2 [Moles/Vol] 23.3 mmol/L Normal 21.0-31.0 The [facility] Comment on above: Performed By: #### B MP ####[address] Creatinine [Mass/Vol] 2.14 mg/dL High 0.60-1.20 [facility] Comment on above: Performed By: #### B MP ####[address] [place] [address] [facility] Creatinine Clr Calc Pharmacy 27.88 Normal [facility] Comment on above: Result Comment: PERF ORMED BY: [facility] [address] [place] [id number] PATHOLOGIST PR[employer] B[employer] WORKER MAY HYDE M.D. Performed By: #### B MP ####[address] [place] [id number] [facility] Estimated GFR 23.142 mL/Min Normal The [facility] Comment on above: Performed By: #### B MP ####[address] [place] [id number] [facility] Glucose [Mass/Vol] 301 mg/dL High 70-100 [facility] Comment on above: Result Comment: [facility] Glucose Reference Range is dependent on time and content of last meal. Glucose of more than 200 mg/dL in a nonstressed, ambulatory subject supports the diagnosis of Diabetes Mellitus. ADA recommended reference range Performed By: #### B MP ####[place] [id number] [facility] Potassium [Moles/Vol] 6.4 mmol/L Off scale high 3.5-5.1 [facility] Comment on above: Result Comment: Resu lts called at 1909 on 10/16/24 Critical Result Called to and read back by: ISMA AVILA/RENETTA at: 10/16/2024 19:04:24 by:[id number] Performed By: #### B MP ####[place] [id number] [facility] Sodium [Moles/Vol] 135 mmol/L Low 136-145 [facility] Comment on above: Performed By: #### B MP ####[place] [id number] [facility] Urea nitrogen [Mass/Vol] 74 mg/dL High 7-25 [facility] Comment on above: Performed By: #### B MP ####[place] [address] [place] [id number] [facility] Anion gap [Moles/Vol] 13.8 mmol/L Normal 6.0-15.0 [facility] e [facility] Comment on above: Performed By: #### Vandana Cramer, BMP #### [facility] [address] Calcium [Mass/Vol] 8.1 mg/dL Low 8.6-10.3 [facility] Comment on above: Performed By: #### Vandana Cramer, BMP #### [address] Chloride [Moles/Vol] 104 mmol/L Normal 98-107 [facility] Comment on above: Performed By: #### Vandana Cramer, BMP #### [address] CO2 [Moles/Vol] 21.5 mmol/L Normal 21.0-31.0 The [facility] Comment on above: Performed By: #### Vandana Cramer, BMP #### [place] [address] [place] Creatinine [Mass/Vol] 2.25 mg/dL High 0.60-1.20 [facility] Comment on above: Performed By: #### Vandana Cramer, BMP #### [place] [address] [place] Creatinine Clr Calc Pharmacy 5.50 Normal [facility] Comment on above: Performed By: #### Vandana Cramer, BMP #### [place] [address] [place] Estimated GFR 21.792 mL/Min Normal The [facility] Comment on above: Performed By: #### Vandana G, BMP #### [address] Glucose [Mass/Vol] 388 mg/dL High 70-100 [facility] Comment on above: Result Comment: [place] Glucose Reference Range is dependent on time and content of last meal. Glucose of more than 200 mg/dL in a nonstressed, ambulatory subject supports the diagnosis of Diabetes Mellitus. ADA recommended reference range Performed By: #### Vandana Cramer, BMP #### [address] Potassium [Moles/Vol] 6.3 mmol/L Off scale high 3.5-5.1 [facility] Comment on above: Result Comment: Crit ical Result Called to and read back by: LYNN KLINE at: 10/16/2024 14:01:43 by:[id number] Performed By: #### M G, BMP #### [address] Sodium [Moles/Vol] 133 mmol/L Low 136-145 [facility] Comment on above: Performed By: #### M G, BMP #### [address] Urea nitrogen [Mass/Vol] 73 mg/dL High 7-25 [facility] Comment on above: Performed By: #### Vandana G, BMP #### [address] Blood carbon dioxide, total measurement by [...] (Bld) [#/Vol] 0.1 10*3/uL Normal 0.0-0.2 [facility] Comment on above: Result Comment: PERF ORMED BY: [place] [address] PATHOLOGIST PR[employer] B[employer]ING WORKER MAY HYDE M.D. Performed By: #### Vandana G, BMP #### [address] Basophils/100 WBC (Bld) 0.7 % Normal . [facility] Comment on above: Performed By: #### M G, BMP #### [facility] [address] [place] [address] [place] Eosinophils (Bld) [#/Vol] 0.1 10*3/uL Normal 0.0-0.45 [facility] Comment on above: Performed By: #### M G, BMP #### [facility] [address] [place] [id number] [place] Eosinophils/100 WBC (Bld) 0.6 % Normal . [facility] Comment on above: Performed By: #### M G, BMP #### [address] Erythrocyte distribution width (RBC) [Ratio] 15.2 % Normal 11.9-15.3 [facility] Comment on above: Performed By: #### M G, BMP #### [address] Hematocrit (Bld) [Volume fraction] 35.5 % Normal 34.0-46.4 [facility] Comment on above: Performed By: #### M G, BMP #### [address] Hemoglobin (Bld) [Mass/Vol] 11.6 g/dL Low 11.8-15.4 [facility] Comment on above: Performed By: #### M G, BMP #### [place] [address] [place] Lymphocytes (Bld) [#/Vol] 1.2 10*3/uL Normal 1.00-4.8 [facility] Comment on above: Performed By: #### M G, BMP #### [place] [id number] [place] Lymphocytes/100 WBC (Bld) 12.5 % Normal . [facility] Comment on above: Performed By: #### M G, BMP #### [address] MCH (RBC) [Entitic mass] 29.0 pg Normal 24.7-34.3 [facility] Comment on above: Performed By: #### M G, BMP #### [address] MCV (RBC) [Entitic vol] 89.1 fL Normal 80-100 [facility] Comment on above: Performed By: #### M G, BMP #### [address] Mean Corpuscular HGB Conc 32.6 g/dL Normal 32.0-35.0 [facility] Comment on above: Performed By: #### Vandana G, BMP #### [place] [address] [place] Monocytes (Bld) [#/Vol] 0.7 10*3/uL Normal 0.0-0.8 [facility] Comment on above: Performed By: #### Vandana G, BMP #### [place] [address] [place] Monocytes/100 WBC (Bld) 18.11 % Normal 0.00-20.00 [facility] Comment on above: Performed By: #### Vandana G, BMP #### [place] [address] [place] Monocytes/100 WBC (Bld) 6.8 % Normal . [facility] Comment on above: Performed By: #### Vandana G, BMP #### [address] Neutrophils (Bld) [#/Vol] 8.0 10*3/uL High 1.8-7.7 [facility] Comment on above: Performed By: #### Vandana G, BMP #### [place] [address] [place] Neutrophils/100 WBC (Bld) 79.4 % Normal . [facility] Comment on above: Performed By: #### Vandana G, BMP #### [address] NRBC% 0.1 /100{WBC} Normal 0-0.5 [facility] Comment on above: Performed By: #### Vandana G, BMP #### [facility] [address] [id number] [facility] Platelet mean volume (Bld) [Entitic vol] 9.7 fL Normal 6.3-10.7 [facility] Comment on above: Performed By: #### M G, BMP #### [facility] [address] [place] [address] [facility] Platelets (Bld) [#/Vol] 181 10*3/uL Normal 150-450 [facility] Comment on above: Performed By: #### M G, BMP #### [facility] [address] [id number] [facility] RBC (Bld) [#/Vol] 3.98 10*6/uL Normal 3.60-5.00 [facility] Comment on above: Performed By: #### M G, BMP #### [facility] [address] [id number] [facility] WBC (Bld) [#/Vol] 10.0 10*3/uL Normal 3.8-11.6 [facility] Comment on above: Performed By: #### Vandana G, BMP #### [address] Creatine Kinaseon 10-16-2024 CK [Catalytic activity/Vol] 37 U/L Normal 30-223 [facility] Comment on above: Performed By: #### M G, BMP #### [place] [id number] [facility] Creatine kinase [Enzymatic a [...] lead ECGon 10-16-2024 ECG 12 lead ECG [facility] Main [address] [address] Electrocardiograph Report Signed Patient: Joe Call MR#: [id number] 0 : 1945 Acct:[id number] Age/Sex: 79 / F ADM Date: 10/16/24 Loc: Room: [address] [place] [address] Type: DIS IN Attending Dr: Kavin Escobar [...] Moreno MD 1 12/24/23 1516 Normal [facility] ECG 12 lead ECG [address] [address] Electrocardiograph Report Signed Patient: Joe Call MR#: [id number] 0 : 1945 Acct:[id number] Age/Sex: 79 / F ADM Date: 10/16/24 Loc: Room: 3J8036-8 Type: ADM IN Attending Dr: Mauri Chavira [...] Jorge Luis Zavala DO 1925 Normal [facility] ECG 12 lead ECG [facility] Main [place] [address] [place] [address] Electrocardiograph Report Signed Patient: Joe Call MR#: [id number] 0 : 1945 Acct:[id number] Age/Sex: 79 / F ADM Date: 10/16/24 Loc: Room: [address] [place] [address] Type: ADM IN Attending Dr: Mauri Chavira [...] Jorge Luis Zavala DO 1925 Normal [facility] Glucose Glucometer (BldC) [M ass/Vol]Ordered By: Kavin Escobar on 10-16-2024 Glucose [Mass/Vol] Capillary blood gluc ose measurement by glucometer (mass/volume) High 70-105 [facility] Glucose Poct Glucometerson 1 12-17-2023 Glucose [Mass/Vol] 266 mg/dL Normal [facility] Comment on above: Result Comment: [place] Glucose Reference Range is dependent on time and content of last meal. Glucose of more than 200 mg/dL in a nonstressed, ambulatory subject supports the diagnosis of Diabetes Mellitus. PERFORMED BY: [place] [address] PATHOLOGIST PRINT BINDING WORKER MAY HYDE M.D. Performed By: #### M G, BMP #### [address] Hemoglobin Calc (Bld) [Mass/ Vol]Ordered By: [...] [Moles/Vol] 104.0 mmol/L Normal 98-109 [facility] Comment on above: Performed By: #### G LULS #### Point of Care testing , CO2 [Moles/Vol] 22 mmol/L Low 23-29 [facility] Comment on above: Performed By: #### G LULS #### Point of Care testing , Creatinine [Mass/Vol] 2.3 mg/dL High 0.6-1.3 [facility] Comment on above: Result Comment: ER/E SD physician is notified/shown all ISTAT results. Critical values may be confirmed by laboratory testing if deemed necessary by ER attending doctor. Performed By: #### G LULS #### Point of Care testing , Glucose [Mass/Vol] 390 mg/dL High 70-105 [facility] Comment on above: Result Comment: PERF ORMED BY: [facility] [place] [address] PATHOLOGIST PR[employer] BINDING WORKER MAY HYDE M.D. Performed By: #### G LULS #### Point of Care testing , Hemoglobin (Bld) [Mass/Vol] 12.2 g/dL Normal 12.0-17.0 [facility] Comment on above: Performed By: #### G LULS #### Point of Care testing , ISTAT Ionized Calcium 1.11 mol/L Low 1.12-1.32 [facility] Comment on above: Performed By: #### G LULS #### Point of Care testing , Potassium [Moles/Vol] 6.4 mmol/L Off scale high 3.5-4.9 [facility] Comment on above: Performed By: #### G LULS #### Point of Care testing , Sodium [Moles/Vol] 134 mmol/L Low 138-146 [facility] Comment on above: Performed By: #### G LULS #### Point of Care testing , Urea nitrogen [Mass/Vol] 69 mg/dL High 8-26 [facility] Comment on above: [...] Magnesium [Mass/Vol] 1.4 mg/dL Low 1.9-2.7 [facility] Comment on above: Result Comment: PERF ORMED BY: [address] [place] [address] PATHOLOGIST PR[employer] BINDING WORKER MAY HYDE M.D. Performed By: #### Vandana Cramer, BMP #### [facility] [address] [place] [id number] [facility] Monocyte distribution width [Entitic [...] (PPP) [Relative time] 2.6 {INR} Normal [facility] Comment on above: Result [...] heart valves: 3 - 4.5 PERFORMED BY: [address] [place] [address] PATHOLOGIST PR[employer] BINDING WORKER MAY HYDE M.D. Performed By: #### Vandana Cramer, BMP #### [facility] [address] [place] [address] [facility] PT Coag (PPP) [Time] 28.9 s High 9.0-12.9 [facility] Comment on above: Result Comment: A he matocrit value greater than 55% may lead to inaccurate results in coagulation testing. Patients having hematocrit values >55% require a special collection tube for coagulation studies. Please contact the laboratory at [phone] for redraw instructions. Performed By: #### KAREN Hansen #### [facility] [address] [place] [address] Prothrombin time (PT)Ordered By: Jorge Luis Zavala on 10-16-2024 PT Coag (PPP) [Time] Prothrombin time (PT) High 9.0- 12.9 [facility] Comment on above: A hematocrit value g reater than 55% may lead to inaccurate results in coagulation testing. Patients having hematocrit values >55% require a special collection tube for coagulation studies. Please contact the laboratory at [phone] for redraw instructions. Sodium (Bld) [Moles/Vol]Orde red By: Kavin Escobar on 10-16-2024 Sodium [Moles/Vol] Whole blood sodium measurement Low 138-146 [facility] Troponin I High Sensitivityo n 10-16-2024 Troponin I High Sensitivity 9.9 pg/mL Normal 0.0-15.0 [facility] Comment on above: Result Comment: PERF ORMED BY: [address] [place] [place] [address] PATHOLOGIST PRINT BINDING WORKER MAY HYDE M.D. Performed By: #### KAREN Hansen #### [address] Troponin I.cardiac [Mass/vol ume] in Serum [...] 1V portableon 10-16 XR chest 1V portable [facility] Main [place] [address] [place] [address] XRay Report Signed Patient: Joe Call MR#: [id number] 0 : 1945 Acct:[id number] Age/Sex: 79 / F ADM Date: 10/16/24 Loc: ER Room: Type: [facility] ER Attending Dr: Copies to: Jorge [...] Jarred Randolph M.D.10/16/2024 2:10 PM Dictation Location: [facility]-- Transcribed By: [facility] 10/16/24 1410 Dictated By: Jarred Randolph DO 10/16/24 1407 Signed By: 10/16/24 1410 Normal [facility] 37on 10-08-2024 37 *Cut lisinopril in h snf to 10mg daily. *Follow-up labs in 2 weeks. *Limit fluid intake to 64oz or 2 liters a day. Normal [facility] Office Visiton 10-08-2024 Follow-up visit [id number] Joe Call 1945 F Date Provider Department Center 10/08/2024 YAMEL OCAMPO Family History Problem Relation Age of Onset Coronary artery disease Other Diabetes Other Polycystic kidney disease Other Family Status - Relation Status Age at Other Level of Service:48495 CT OFFICE/OUTPATIENT ESTABLISHED MOD MDM 30 MIN Reason for Visit and Comments: Congestive Heart Failure [127] Hypertension [190555] Atrial Fibrillation [80] Normal [facility] Estimated glomerular filtrat ion rate (GFR) non- Americanon 09-29-2024 GFR/1.73 sq M.predicted among non-blacks MDRD (S/P/Bld) [Vol rate/Area] Estimated glomerular filtration rate (GFR) non- Low >=60 mL/min/1.73 m 2 [facility] Laboratory - Chemistry and C hemistry - challengeon 09-29-2024 Calcium [Mass/Vol] 8.8 mg/dL 8.5-10.1 [facility] Chloride [Moles/Vol] 102 mmol/L 98-107 [facility] CO2 [Moles/Vol] 24.9 mmol/L 21.0-32.0 [facility] Creatinine [Mass/Vol] 1.92 mg/dL High 0.55-1.02 [facility] GFR/1.73 sq M.predicted MDRD (S/P/Bld) [Vol rate/Area] 31 mL/min/{1.73_m2} Low >=60 mL/min/1.73 m 2 [facility] Glucose [Mass/Vol] 387 mg/dL High 74-106 [facility] Potassium [Moles/Vol] 5.0 mmol/L 3.5-5.1 [facility] Sodium [Moles/Vol] 136 mmol/L 136-145 [facility] Urea nitrogen [Mass/Vol] 64.0 mg/dL High 7.0-18.0 [...] of breath or worsening leg swelling. Normal [facility] Office Visiton 09-03-2024 Follow-up visit [id number] Joe Call 1945 F Date Provider Department Center 09/03/2024 YAMEL OCAMPO Family History Problem Relation Age of Onset Coronary artery disease Other Diabetes Other Polycystic kidney disease Other Family Status - Relation Status Age at Other Level of Service:48369 CT OFFICE/OUTPATIENT ESTABLISHED MOD MDM 30 MIN Reason for Visit and Comments: Congestive Heart Failure [127] Atrial Fibrillation [80] Hypertension [306575] Normal [facility] Office Visiton 08-20-2024 Follow-up visit [id number] Joe Call 1945 F Date Provider Department Center 08/20/2024 YAMEL OCAMPO Family History Problem Relation Age of Onset Coronary artery disease Other Diabetes Other Polycystic kidney disease Other Family Status - Relation Status Age at Other Level of Service:29944 CT OFFICE/OUTPATIENT ESTABLISHED MOD MDM 30 MIN Reason for Visit and Comments: Congestive Heart Failure [127] Normal [facility] Basophils Auto (Bld) [#/Vol] on 07-25-2024 [...] 07-25-2024 Albumin [Mass/Vol] 2.3 g/dL Low 3.4-5.0 [facility] ALP [Catalytic activity/Vol] 101 U/L 46-116 [facility] ALT [Catalytic activity/Vol] 14 U/L 14-59 [facility] AST [Catalytic activity/Vol] 13 U/L Low 15-37 [facility] Bilirubin [Mass/Vol] 0.8 mg/dL 0.2-1.0 [facility] Calcium [Mass/Vol] 8.6 mg/dL 8.5-10.1 [facility] Chloride [Moles/Vol] 102 mmol/L 98-107 [facility] CO2 [Moles/Vol] 27.8 mmol/L 21.0-32.0 [facility] Creatinine [Mass/Vol] 1.13 mg/dL High 0.55-1.02 [facility] GFR/1.73 sq M.predicted MDRD (S/P/Bld) [Vol rate/Area] 56 mL/min/{1.73_m2} Low >=60 [facility] Glucose [Mass/Vol] 228 mg/dL High 74-106 [facility] Potassium [Moles/Vol] 3.7 mmol/L 3.5-5.1 [facility] Protein [Mass/Vol] 7.0 g/dL 6.4-8.2 [facility] Sodium [Moles/Vol] 140 mmol/L 136-145 [facility] Urea nitrogen [Mass/Vol] 26.0 mg/dL High 7.0-18.0 [...] 07-25-2024 MCHC (RBC) [Mass/Vol] 32.7 g/dL 29.9-35.2 [facility] MCV Auto (RBC) [Entitic vol] [...] Eosinophils # (Auto) 0.1 10 3/uL 0.0-0.7 [facility] Immature Granulocyte # (Auto) 0.02 [...] (Bld) [#/Vol] 3.70 10 6/uL Low 4.20-5.40 [facility] Serum or plasma albumin/glob ulin mass ratioon 07-25-2024 Albumin/Globulin [Mass ratio] 0.5 {ratio} [facility] Serum or plasma anion gap de terminationon 07-25-2024 Anion gap [Moles/Vol] 13.9 mmol/L [facility] Basophils Auto (Bld) [#/Vol] on 07-24-2024 Basophils [...] challengeon 07-24-2024 Calcium [Mass/Vol] 8.9 mg/dL 8.5-10.1 [facility] Chloride [Moles/Vol] 104 mmol/L 98-107 [facility] CO2 [Moles/Vol] 26.1 mmol/L 21.0-32.0 [facility] Creatinine [Mass/Vol] 1.11 mg/dL High 0.55-1.02 [facility] GFR/1.73 sq M.predicted MDRD (S/P/Bld) [Vol rate/Area] 58 mL/min/{1.73_m2} Low >=60 [facility] Glucose [Mass/Vol] 247 mg/dL High 74-106 [facility] Natriuretic peptide B (Bld) [Mass/Vol] 6277.0 pg/mL High <=1800.0 [facility] Comment on above: RESULTS CALLED TO YOEL STEWARD RN IN ER BY Mira Martinez at 1430 Potassium [Moles/Vol] 4.1 mmol/L 3.5-5.1 [facility] Sodium [Moles/Vol] 141 mmol/L 136-145 [facility] Urea nitrogen [Mass/Vol] 28.0 mg/dL [...] 07-24-2024 MCHC (RBC) [Mass/Vol] 32.5 g/dL 29.9-35.2 [facility] MCV Auto (RBC) [Entitic vol] [...] Eosinophils # (Auto) 0.2 10 3/uL 0.0-0.7 [facility] Immature Granulocyte # (Auto) 0.03 [...] (Bld) [#/Vol] 3.75 10 6/uL Low 4.20-5.40 [facility] Serum or plasma anion gap de terminationon 07-24-2024 Anion gap [Moles/Vol] 15.0 mmol/L [facility] Urine Cultureon 07-17-2024 Bacteria identified Cx Nom (U) ORGANISM: Citrobacter freundii complex (O:CITFRC) [place] Count >100,000 ORGANISM: Proteus mirabilis (O:PROMIR) [place] Count 20,000 Aerobic MIRTHA Charge (NMIC56) - [...] RESISTANT TO ALL B-LACTAM DRUGS. PERFORMED BY: [place] [address] [place] [address] PATHOLOGIST PRINT BINDING WORKER CHOLO YEAGER M.D. Normal [facility] Comment on above: Performed By: #### M G, BMP #### [facility] [address] Urine culture routineOrdered By: Shantel Steven [...] challengeon 07-15-2024 Bilirubin Ql (U) Negative NEGATIVE [facility] Glucose (U) [Mass/Vol] Negative NE[facility]IVE [facility] Ketones Ql (U) Negative NEGATIVE [facility] pH (U) 6.5 [pH] 5.0-9.0 [facility] Specific gravity (U) [Rel density] 1.020 1.005-1.025 [facility] Urobilinogen Qn (U) 0.2 {Meka'U}/dL 0.2-1.0 [facility] Albumin [Mass/Vol] 2.6 g/dL Low 3.4-5.0 [facility] ALP [Catalytic activity/Vol] 87 U/L 46-116 [facility] ALT [Catalytic activity/Vol] 18 U/L 14-59 [facility] AST [Catalytic activity/Vol] 14 U/L Low 15-37 [facility] Bilirubin [Mass/Vol] 0.6 mg/dL 0.2-1.0 [facility] Calcium [Mass/Vol] 8.6 mg/dL 8.5-10.1 [facility] Chloride [Moles/Vol] 101 mmol/L 98-107 [facility] CO2 [Moles/Vol] 31.4 mmol/L 21.0-32.0 [facility] Creatinine [Mass/Vol] 1.12 mg/dL High 0.55-1.02 [facility] GFR/1.73 sq M.predicted MDRD (S/P/Bld) [Vol rate/Area] 57 mL/min/{1.73_m2} Low >=60 [facility] Glucose [Mass/Vol] 153 mg/dL High 74-106 [facility] Natriuretic peptide B (Bld) [Mass/Vol] 3410.0 pg/mL High <=1800.0 [facility] Comment on above: RESULTS CALLED TO Bogdan Robin RN at 0840 Potassium [Moles/Vol] 3.6 mmol/L 3.5-5.1 [facility] Protein [Mass/Vol] 6.8 g/dL 6.4-8.2 [facility] Sodium [Moles/Vol] 141 mmol/L 136-145 [facility] Urea nitrogen [Mass/Vol] 43.0 mg/dL High 7.0-18.0 [...] Ql (Urine sed) NONE SEEN NONE SEEN [facility] Nitrite Ql (U) Negative NEGATIVE [facility] [...] 07-15-2024 MCHC (RBC) [Mass/Vol] 33.2 g/dL 29.9-35.2 [facility] MCV Auto (RBC) [Entitic vol] on 07-15-2024 MCV (RBC) [Entitic vol] 89.9 fL 81.0-99.0 [facility] No Panel Informationon 07-15 Urine Bacteria NONE SEEN #/HPF NONE SEEN [facility] Urine Occult Blood TRACE-I NEGATIVE [facility] Urine RBC 0-2 #/HPF 0-2 [facility] [...] (Bld) [#/Vol] 3.88 10 6/uL Low 4.20-5.40 [facility] Serum or plasma albumin/glob ulin mass ratioon 07-15-2024 Albumin/Globulin [Mass ratio] 0.6 {ratio} [facility] Serum or plasma anion gap de terminationon 07-15-2024 Anion gap [Moles/Vol] 12.2 mmol/L Fi [facility] Basophils Auto (Bld) [#/Vol] on 07-14-2024 [...] Calcium [Mass/Vol] 9.0 mg/dL 8.5-10.1 [facility] Chloride [Moles/Vol] 96 mmol/L Low 98-107 [facility] CO2 [Moles/Vol] 35.5 mmol/L High 21.0-32.0 [facility] Creatinine [Mass/Vol] 1.65 mg/dL High 0.55-1.02 [facility] GFR/1.73 sq M.predicted MDRD (S/P/Bld) [Vol rate/Area] 36 mL/min/{1.73_m2} Low >=60 [facility] Glucose [Mass/Vol] 458 mg/dL High 74-106 [facility] Potassium [Moles/Vol] 4.0 mmol/L 3.5-5.1 [facility] Sodium [Moles/Vol] 135 mmol/L Low 136-145 [facility] Urea nitrogen [Mass/Vol] 52.0 mg/dL High 7.0-18.0 [...] 07-14-2024 MCHC (RBC) [Mass/Vol] 33.2 g/dL 29.9-35.2 [facility] MCV Auto (RBC) [Entitic vol] [...] Eosinophils # (Auto) 0.1 10 3/uL 0.0-0.7 [facility] Immature Granulocyte # (Auto) 0.01 [...] RBC (Bld) [#/Vol] 4.27 10 6/uL 4.20-5.40 [facility] Serum or plasma anion gap de terminationon 07-14-2024 Anion gap [Moles/Vol] 7.5 mmol/L [facility] 36on 07-01-2024 36 Regarding lab [...] for patient to return my call. Normal [facility] Estimated glomerular filtrat ion rate (GFR) non- Americanon 06-24-2024 GFR/1.73 sq M.predicted among non-blacks MDRD (S/P/Bld) [Vol rate/Area] 38 mL/min/{1.73_m2} Low >=60 [facility] Laboratory - Chemistry and C hemistry - challengeon 06-24-2024 Calcium [Mass/Vol] 8.4 mg/dL Low 8.5-10.1 [facility] Chloride [Moles/Vol] 100 mmol/L 98-107 [facility] CO2 [Moles/Vol] 31.1 mmol/L 21.0-32.0 [facility] Creatinine [Mass/Vol] 1.34 mg/dL High 0.55-1.02 [facility] GFR/1.73 sq M.predicted MDRD (S/P/Bld) [Vol rate/Area] 46 mL/min/{1.73_m2} Low >=60 [facility] Glucose [Mass/Vol] 222 mg/dL High 74-106 [facility] Potassium [Moles/Vol] 3.6 mmol/L 3.5-5.1 [facility] Sodium [Moles/Vol] 138 mmol/L 136-145 [facility] Urea nitrogen [Mass/Vol] 32.0 mg/dL [...] terminationon 06-24-2024 Anion gap [Moles/Vol] 10.5 mmol/L [facility] Office Visiton 06-18-2024 Follow-up visit [id number] Joe Call 1945 F Date Provider Department Center 06/18/2024 [facility] Family History Problem Relation Age of Onset Coronary artery disease Other Diabetes Other Polycystic kidney disease Other Family Status - Relation Status Age at Other Level of Service:23070 CT OFFICE/OUTPATIENT ESTABLISHED MOD MDM 30 MIN Normal [facility] Basophils Auto (Bld) [#/Vol] on 06-10-2024 [...] [Mass/Vol] 2.4 g/dL Low 3.4-5.0 [facility] ALP [Catalytic activity/Vol] 94 U/L 46-116 [facility] ALT [Catalytic activity/Vol] 13 U/L Low 14-59 [facility] AST [Catalytic activity/Vol] 13 U/L Low 15-37 [facility] Bilirubin [Mass/Vol] 0.9 mg/dL 0.2-1.0 [facility] Calcium [Mass/Vol] 8.9 mg/dL 8.5-10.1 [facility] Chloride [Moles/Vol] 101 mmol/L 98-107 [facility] CO2 [Moles/Vol] 29.4 mmol/L 21.0-32.0 [facility] Creatinine [Mass/Vol] 1.00 mg/dL 0.55-1.02 [facility] GFR/1.73 sq M.predicted MDRD (S/P/Bld) [Vol rate/Area] mL/min/{1.73_m2} >=60 [facility] Glucose [Mass/Vol] 167 mg/dL High 74-106 [facility] Potassium [Moles/Vol] 3.4 mmol/L Low 3.5-5.1 [facility] Protein [Mass/Vol] 6.9 g/dL 6.4-8.2 [facility] Sodium [Moles/Vol] 136 mmol/L 136-145 [facility] Urea nitrogen [Mass/Vol] 24.0 mg/dL [...] 06-10-2024 MCHC (RBC) [Mass/Vol] 32.9 g/dL 29.9-35.2 [facility] MCV Auto (RBC) [Entitic vol] [...] Eosinophils # (Auto) 0.1 10 3/uL 0.0-0.7 [facility] Immature Granulocyte # (Auto) 0.02 [...] (Bld) [#/Vol] 4.06 10 6/uL Low 4.20-5.40 [facility] Serum or plasma albumin/glob ulin mass ratioon 06-10-2024 Albumin/Globulin [Mass ratio] 0.5 {ratio} [facility] Serum or plasma anion gap de terminationon 06-10-2024 Anion gap [Moles/Vol] 9.0 mmol/L [facility] Basophils Auto (Bld) [#/Vol] on [...] [Mass/Vol] 2.5 g/dL Low 3.4-5.0 [facility] ALP [Catalytic activity/Vol] 86 U/L 46-116 [facility] ALT [Catalytic activity/Vol] 18 U/L 14-59 [facility] AST [Catalytic activity/Vol] 34 U/L 15-37 [facility] Bilirubin [Mass/Vol] 0.8 mg/dL 0.2-1.0 [facility] Calcium [Mass/Vol] 8.6 mg/dL 8.5-10.1 [facility] Chloride [Moles/Vol] 103 mmol/L 98-107 [facility] CO2 [Moles/Vol] 27.1 mmol/L 21.0-32.0 [facility] Creatinine [Mass/Vol] 0.88 mg/dL 0.55-1.02 [facility] GFR/1.73 sq M.predicted MDRD (S/P/Bld) [Vol rate/Area] mL/min/{1.73_m2} >=60 [facility] Glucose [Mass/Vol] 142 mg/dL High 74-106 [facility] Lipase [Catalytic activity/Vol] 45.0 U/L 16.0-77.0 [facility] Natriuretic peptide B (Bld) [Mass/Vol] 3488.0 pg/mL High <=1800.0 [facility] Comment on above: RESULTS CALLED TO MAIDA MCGOWAN RN @BY Alla Kevin [id number] Potassium [Moles/Vol] 5.0 mmol/L 3.5-5.1 [facility] Protein [Mass/Vol] 7.3 g/dL 6.4-8.2 [facility] Sodium [Moles/Vol] 135 mmol/L Low 136-145 [facility] Urea nitrogen [Mass/Vol] 28.0 mg/dL [...] 06-09-2024 MCHC (RBC) [Mass/Vol] 33.2 g/dL 29.9-35.2 [facility] MCV Auto (RBC) [Entitic vol] [...] # (Auto) 0.1 10 3/uL 0.0-0.7 [facility] Immature Granulocyte # (Auto) 0.03 10 3/uL [...] (Bld) [#/Vol] 4.12 10 6/uL Low 4.20-5.40 [facility] Serum or plasma albumin/glob ulin mass ratioon 06-09-2024 Albumin/Globulin [Mass ratio] 0.5 {ratio} [facility] Serum or plasma anion gap de terminationon 06-09-2024 Anion gap [Moles/Vol] 9.9 mmol/L [facility] Basophils Auto (Bld) [#/Vol] on [...] [Mass/Vol] 2.7 g/dL Low 3.4-5.0 [facility] ALP [Catalytic activity/Vol] 87 U/L 46-116 [facility] ALT [Catalytic activity/Vol] 18 U/L 14-59 [facility] AST [Catalytic activity/Vol] 16 U/L 15-37 [facility] Bilirubin [Mass/Vol] 0.5 mg/dL 0.2-1.0 [facility] Calcium [Mass/Vol] 8.7 mg/dL 8.5-10.1 [facility] Chloride [Moles/Vol] 101 mmol/L 98-107 [facility] CO2 [Moles/Vol] 28.9 mmol/L 21.0-32.0 [facility] Creatinine [Mass/Vol] 1.12 mg/dL High 0.55-1.02 [facility] GFR/1.73 sq M.predicted MDRD (S/P/Bld) [Vol rate/Area] 57 mL/min/{1.73_m2} Low >=60 [facility] Glucose [Mass/Vol] 232 mg/dL High 74-106 [facility] Potassium [Moles/Vol] 4.1 mmol/L 3.5-5.1 [facility] Protein [Mass/Vol] 7.1 g/dL 6.4-8.2 [facility] Sodium [Moles/Vol] 137 mmol/L 136-145 [facility] Urea nitrogen [Mass/Vol] 23.0 mg/dL [...] 06-01-2024 MCHC (RBC) [Mass/Vol] 33.2 g/dL 29.9-35.2 [facility] MCV Auto (RBC) [Entitic vol] [...] Eosinophils # (Auto) 0.1 10 3/uL 0.0-0.7 [facility] Immature Granulocyte # (Auto) 0.02 [...] RBC (Bld) [#/Vol] 4.24 10 6/uL 4.20-5.40 [facility] Serum or plasma albumin/glob ulin mass ratioon 06-01-2024 Albumin/Globulin [Mass ratio] 0.6 {ratio} [facility] Serum or plasma anion gap de terminationon 06-01-2024 Anion gap [Moles/Vol] 11.2 mmol[facility] Basophils Auto (Bld) [#/Vol] on 05-26-2024 Basophils [...] [Mass/Vol] 2.7 g/dL Low 3.4-5.0 [facility] ALP [Catalytic activity/Vol] 88 U/L 46-116 [facility] ALT [Catalytic activity/Vol] 20 U/L 14-59 [facility] AST [Catalytic activity/Vol] 12 U/L Low 15-37 [facility] Bilirubin [Mass/Vol] 0.5 mg/dL 0.2-1.0 [facility] Calcium [Mass/Vol] 8.9 mg/dL 8.5-10.1 [facility] Chloride [Moles/Vol] 104 mmol/L 98-107 [facility] CO2 [Moles/Vol] 26.7 mmol/L 21.0-32.0 [facility] Creatinine [Mass/Vol] 1.29 mg/dL High 0.55-1.02 [facility] Free T4 [Mass/Vol] 1.19 ng/dL 0.76-1.46 [facility] GFR/1.73 sq M.predicted MDRD (S/P/Bld) [Vol rate/Area] 49 mL/min/{1.73_m2} Low >=60 [facility] Glucose [Mass/Vol] 233 mg/dL High 74-106 [facility] Natriuretic peptide B (Bld) [Mass/Vol] 2687.0 pg/mL High <=1800.0 [facility] Comment on above: RESULTS CALLED TO DR Miranda ALVAREZ IN ER BY Mira Edwards [id number] Potassium [Moles/Vol] 4.0 mmol/L 3.5-5.1 [facility] Protein [Mass/Vol] 7.1 g/dL 6.4-8.2 [facility] Sodium [Moles/Vol] 140 mmol/L 136-145 [facility] TSH Qn 4.487 m[IU]/L High 0.358-3.740 [facility] SARS-CoV-2 (COVID-19) RNA FENR+probe Ql (Unsp spec) Not detected NOT DETECTE [...] 05-26-2024 MCHC (RBC) [Mass/Vol] 33.4 g/dL 29.9-35.2 [facility] MCV Auto (RBC) [Entitic vol] [...] Eosinophils # (Auto) 0.2 10 3/uL 0.0-0.7 [facility] Immature Granulocyte # (Auto) 0.01 [...] (Bld) [#/Vol] 3.95 10 6/uL Low 4.20-5.40 [facility] Serum or plasma albumin/glob ulin mass ratioon 05-26-2024 Albumin/Globulin [Mass ratio] 0.6 {ratio} [facility] Serum or plasma anion gap de terminationon 05-26-2024 Anion gap [Moles/Vol] 13.3 mmol/L [facility] ECG 12 lead ECGon 05-22-2024 ECG 12 lead ECG [facility] [place] [address] Electrocardiograph Report Signed Patient: Joe Call MR#: [id number] 0 : 1945 Acct:[id number] Age/Sex: 78 / F ADM Date: 05/22/24 Loc: ER Room: Type: [facility] ER Attending Dr: Ordering Provider: Jorge Luis [...] Sinus bradycardia Confirmed by Daniele Jane DO ([id number]) on 05/22/2024 4:08:55 PM Referred By: Electronically Signed By: Daniele Jane DO Transcribed By: MUS Signed By Daniele Jane DO [id number] Normal [facility] 37on 05-20-2024 37 Have [...] pillows than normal or in recliner. Normal [facility] Estimated glomerular filtrat ion rate (GFR) non- Americanon 05-20-2024 GFR/1.73 sq M.predicted among non-blacks MDRD (S/P/Bld) [Vol rate/Area] 39 mL/min/{1.73_m2} Low >=60 [facility] Laboratory - Chemistry and C hemistry - challengeon 05-20-2024 Calcium [Mass/Vol] 8.8 mg/dL 8.5-10.1 [facility] Chloride [Moles/Vol] 103 mmol/L 98-107 [facility] CO2 [Moles/Vol] 24.3 mmol/L 21.0-32.0 [facility] Creatinine [Mass/Vol] 1.32 mg/dL High 0.55-1.02 [facility] GFR/1.73 sq M.predicted MDRD (S/P/Bld) [Vol rate/Area] 47 mL/min/{1.73_m2} Low >=60 [facility] Glucose [Mass/Vol] 243 mg/dL High 74-106 [facility] Potassium [Moles/Vol] 5.0 mmol/L 3.5-5.1 [facility] Sodium [Moles/Vol] 138 mmol/L 136-145 [facility] Urea nitrogen [Mass/Vol] 35.0 mg/dL [...] - [place] Office Visiton 05-20-2024 Follow-up visit [id number] BassemJoe G 1945 F Date Provider Department Center 05/20/2024 MICHELA CHAMBERLAIN [facility] Family History Problem Relation Age of Onset Coronary artery disease Other Diabetes Other Polycystic kidney disease Other Family Status - Relation Status Age at Other Level of Service:[address] CT OFFICE/OUTPATIENT ESTABLISHED MOD MDM 30 MIN Normal [facility] Serum or plasma anion gap de terminationon 05-20-2024 Anion gap [Moles/Vol] 15.7 mmol[facility] Basophils Auto (Bld) [#/Vol] on 05-06-2024 Basophils [...] [Mass/Vol] 2.5 g/dL Low 3.4-5.0 [facility] ALP [Catalytic activity/Vol] 75 U/L 46-116 [facility] ALT [Catalytic activity/Vol] 16 U/L 14-59 [facility] AST [Catalytic activity/Vol] 11 U/L Low 15-37 [facility] Bilirubin [Mass/Vol] 0.4 mg/dL 0.2-1.0 [facility] Calcium [Mass/Vol] 8.4 mg/dL Low 8.5-10.1 [facility] Chloride [Moles/Vol] 107 mmol/L 98-107 [facility] CO2 [Moles/Vol] 25.7 mmol/L 21.0-32.0 [facility] Creatinine [Mass/Vol] 1.58 mg/dL High 0.55-1.02 [facility] GFR/1.73 sq M.predicted MDRD (S/P/Bld) [Vol rate/Area] 38 mL/min/{1.73_m2} Low >=60 [facility] Glucose [Mass/Vol] 146 mg/dL High 74-106 [facility] Magnesium [Mass/Vol] 1.6 mg/dL Low 1.8-2.4 [facility] Natriuretic peptide B (Bld) [Mass/Vol] 2762.0 pg/mL High <=1800.0 [facility] Comment on above: RESULTS CALLED TO CLARITZA SELLERS RN @BY Alla Venegas at 0557 Potassium [Moles/Vol] 4.1 mmol/L 3.5-5.1 [facility] Protein [Mass/Vol] 6.8 g/dL 6.4-8.2 [facility] Sodium [Moles/Vol] 141 mmol/L 136-145 [facility] Urea nitrogen [Mass/Vol] 49.0 mg/dL [...] 05-06-2024 MCHC (RBC) [Mass/Vol] 32.1 g/dL 29.9-35.2 [facility] MCV Auto (RBC) [Entitic vol] [...] # (Auto) 0.2 10 3/uL 0.0-0.7 [facility] Immature Granulocyte # (Auto) 0.01 10 3/uL [...] (Bld) [#/Vol] 3.83 10 6/uL Low 4.20-5.40 [facility] Serum or plasma albumin/glob ulin mass ratioon 05-06-2024 Albumin/Globulin [Mass ratio] 0.6 {ratio} [facility] Serum or plasma anion gap de terminationon 05-06-2024 Anion gap [Moles/Vol] 12.4 mmol/L [facility] Basophils Auto (Bld) [#/Vol] on 05-05-2024 [...] [Mass/Vol] 2.6 g/dL Low 3.4-5.0 [facility] ALP [Catalytic activity/Vol] 74 U/L 46-116 [facility] ALT [Catalytic activity/Vol] 17 U/L 14-59 [facility] AST [Catalytic activity/Vol] 12 U/L Low 15-37 [facility] Bilirubin [Mass/Vol] 0.4 mg/dL 0.2-1.0 [facility] Calcium [Mass/Vol] 6.1 mg/dL Low 8.5-10.1 [facility] Chloride [Moles/Vol] 105 mmol/L 98-107 [facility] CO2 [Moles/Vol] 24.1 mmol/L 21.0-32.0 [facility] Creatinine [Mass/Vol] 1.71 mg/dL High 0.55-1.02 [facility] GFR/1.73 sq M.predicted MDRD (S/P/Bld) [Vol rate/Area] 35 mL/min/{1.73_m2} Low >=60 [facility] Glucose [Mass/Vol] 202 mg/dL High 74-106 [facility] Magnesium [Mass/Vol] 1.5 mg/dL Low 1.8-2.4 [facility] Natriuretic peptide B (Bld) [Mass/Vol] 2725.0 pg/mL High <=1800.0 [facility] Comment on above: RESULTS CALLED TO Frances Bryant (Mert)@BY Franchesca Huynh MLT at 0547 Potassium [Moles/Vol] 5.9 mmol/L High 3.5-5.1 [facility] Protein [Mass/Vol] 7.0 g/dL 6.4-8.2 [facility] Sodium [Moles/Vol] 139 mmol/L 136-145 [facility] Urea nitrogen [Mass/Vol] 69.0 mg/dL [...] 05-05-2024 MCHC (RBC) [Mass/Vol] 32.8 g/dL 29.9-35.2 [facility] MCV Auto (RBC) [Entitic vol] [...] Eosinophils # (Auto) 0.1 10 3/uL 0.0-0.7 [facility] Immature Granulocyte # (Auto) 0.02 [...] (Bld) [#/Vol] 3.79 10 6/uL Low 4.20-5.40 [facility] Serum or plasma albumin/glob ulin mass ratioon 05-05-2024 Albumin/Globulin [Mass ratio] 0.6 {ratio} [facility] Serum or plasma anion gap de terminationon 05-05-2024 Anion gap [Moles/Vol] 15.8 mmol/L [facility] Basophils Auto (Bld) [#/Vol] on 05-04-2024 Basophils [...] challengeon 05-04-2024 Bilirubin Ql (U) Negative NEGATIVE [facility] Glucose (U) [Mass/Vol] 250 mg/dL Abnormal NEGATIVE [facility] Ketones Ql (U) Negative NEGATIVE [facility] pH (U) 6.0 [pH] 5.0-9.0 [facility] Specific gravity (U) [Rel density] 1.015 1.005-1.025 [facility] Urobilinogen Qn (U) 0.2 {Meka'U}/dL 0.2-1.0 [facility] Albumin [Mass/Vol] 2.8 g/dL Low 3.4-5.0 [facility] ALP [Catalytic activity/Vol] 86 U/L 46-116 [facility] ALT [Catalytic activity/Vol] 16 U/L 14-59 [facility] Ammonia (P) [Moles/Vol] 12 umol/L 11-32 [facility] AST [Catalytic activity/Vol] 8 U/L Low 15-37 [facility] Bilirubin [Mass/Vol] 0.4 mg/dL 0.2-1.0 [facility] Calcium [Mass/Vol] 8.8 mg/dL 8.5-10.1 [facility] Chloride [Moles/Vol] 101 mmol/L 98-107 [facility] CO2 [Moles/Vol] 22.4 mmol/L 21.0-32.0 [facility] Creatinine [Mass/Vol] 2.24 mg/dL High 0.55-1.02 [facility] GFR/1.73 sq M.predicted MDRD (S/P/Bld) [Vol rate/Area] 26 mL/min/{1.73_m2} Low >=60 [facility] Glucose [Mass/Vol] 369 mg/dL High 74-106 [facility] Lactate [Moles/Vol] 1.2 mmol/L 0.4-2.0 [facility] Magnesium [Mass/Vol] 1.7 mg/dL Low 1.8-2.4 [facility] Natriuretic peptide B (Bld) [Mass/Vol] 2342.0 pg/mL High <=1800.0 [facility] Comment on above: RESULTS CALLED TO RENETTA Renteria RN @BY Andrea Long, MLTat 1126 Potassium [Moles/Vol] 5.6 mmol/L High 3.5-5.1 [facility] Protein [Mass/Vol] 7.7 g/dL 6.4-8.2 [facility] Sodium [Moles/Vol] 134 mmol/L Low 136-145 [facility] T4 [Mass/Vol] 11.80 ug/dL 4.80-13.90 [facility] [...] 05-04-2024 Appearance (U) SLIGHTLY CLOUDY Abnormal CLEAR [facility] Color (U) YELLOW YELLOW [facility] Laboratory - Urinalysison Hyaline casts LM Ql (Urine sed) RARE [facility] Leukocyte esterase Test strip Ql (U) Negative NEGATIVE [facility] Mucus Ql (Urine sed) NONE SEEN NONE SEEN [facility] Nitrite Ql (U) Negative NEGATIVE [facility] [...] 05-04-2024 MCHC (RBC) [Mass/Vol] 31.9 g/dL 29.9-35.2 [facility] MCV Auto (RBC) [Entitic vol] [...] MODERATE #/HPF Abnormal NONE SEEN [facility] Urine Culture Reflexed ALREADY ORDERED [facility] Urine Microscopic Review YES [facility] Urine Occult Blood MODERATE Abnormal NEGATIVE [facility] Urine Other Casts SEEN #/LPF Abnormal NONE SEEN [facility] Urine Other Crystals None Seen #/HPF [...] # (Auto) 0.1 10 3/uL 0.0-0.7 [facility] Immature Granulocyte # (Auto) 0.02 10 3/uL [...] - [place] Venous Blood pH 7.353 7.330-7.430 [facility] 0.933 u[iU]/mL 0.358-3.740 [facility] [...] (Bld) [#/Vol] 4.09 10 6/uL Low 4.20-5.40 [facility] Serum or plasma albumin/glob ulin mass ratioon 05-04-2024 Albumin/Globulin [Mass ratio] 0.6 {ratio} [facility] Serum or plasma anion gap de terminationon 05-04-2024 Anion gap [Moles/Vol] 16.2 mmol/L [facility] Basophils Auto (Bld) [#/Vol] on 05-01-2024 [...] Calcium [Mass/Vol] 9.2 mg/dL 8.5-10.1 [facility] Chloride [Moles/Vol] 104 mmol/L 98-107 [facility] CO2 [Moles/Vol] 23.2 mmol/L 21.0-32.0 [facility] Creatinine [Mass/Vol] 2.14 mg/dL High 0.55-1.02 [facility] GFR/1.73 sq M.predicted MDRD (S/P/Bld) [Vol rate/Area] 27 mL/min/{1.73_m2} Low >=60 [facility] Glucose [Mass/Vol] 220 mg/dL High 74-106 [facility] Potassium [Moles/Vol] 5.3 mmol/L High 3.5-5.1 [facility] Sodium [Moles/Vol] 134 mmol/L Low 136-145 [facility] Urea nitrogen [Mass/Vol] 87.0 mg/dL High 7.0-18.0 [facility] Comment on above: RESULTS CALLED TO Klaus Michaels RN @BY Sury Blaynedaljit [phone] Urea nitrogen/Creatinine [Mass ratio] 40.7 mg/mg [facility] Albumin [Mass/Vol] 2.8 g/dL Low 3.4-5.0 [facility] ALP [Catalytic activity/Vol] 80 U/L 46-116 [facility] ALT [Catalytic activity/Vol] 16 U/L 14-59 [facility] AST [Catalytic activity/Vol] 11 U/L Low 15-37 [facility] Bilirubin [Mass/Vol] 0.4 mg/dL 0.2-1.0 [facility] Natriuretic peptide B (Bld) [Mass/Vol] 1624.0 pg/mL <=1800.0 [facility] Protein [Mass/Vol] 7.2 g/dL 6.4-8.2 [facility] Laboratory - Hematology and Cell [...] 05-01-2024 MCHC (RBC) [Mass/Vol] 32.3 g/dL 29.9-35.2 [facility] MCV Auto (RBC) [Entitic vol] [...] Eosinophils # (Auto) 0.2 10 3/uL 0.0-0.7 [facility] Immature Granulocyte # (Auto) 0.01 [...] (Bld) [#/Vol] 4.15 10 6/uL Low 4.20-5.40 [facility] Serum or plasma albumin/glob ulin mass ratioon 05-01-2024 Albumin/Globulin [Mass ratio] 0.6 {ratio} [facility] Serum or plasma anion gap de terminationon 05-01-2024 Anion gap [Moles/Vol] 12.1 mmol/L [facility] Basophils Auto (Bld) [#/Vol] on 04-30-2024 [...] Calcium [Mass/Vol] 9.0 mg/dL 8.5-10.1 [facility] Chloride [Moles/Vol] 100 mmol/L 98-107 [facility] CO2 [Moles/Vol] 24.4 mmol/L 21.0-32.0 [facility] Creatinine [Mass/Vol] 3.02 mg/dL High 0.55-1.02 [facility] GFR/1.73 sq M.predicted MDRD (S/P/Bld) [Vol rate/Area] 18 mL/min/{1.73_m2} Low >=60 [facility] Glucose [Mass/Vol] 271 mg/dL High 74-106 [facility] Magnesium [Mass/Vol] 1.8 mg/dL 1.8-2.4 [facility] Natriuretic peptide B (Bld) [Mass/Vol] 1485.0 pg/mL <=1800.0 [facility] Potassium [Moles/Vol] 5.3 mmol/L High 3.5-5.1 [facility] Sodium [Moles/Vol] 133 mmol/L Low 136-145 [facility] Urea nitrogen [Mass/Vol] 99.0 mg/dL [...] 04-30-2024 MCHC (RBC) [Mass/Vol] 32.4 g/dL 29.9-35.2 [facility] MCV Auto (RBC) [Entitic vol] [...] Eosinophils # (Auto) 0.2 10 3/uL 0.0-0.7 [facility] Immature Granulocyte # (Auto) 0.01 [...] RBC (Bld) [#/Vol] 4.22 10 6/uL 4.20-5.40 [facility] Serum or plasma anion gap de terminationon 04-30-2024 Anion gap [Moles/Vol] 13.9 mmol/L [facility] Basophils Auto (Bld) [#/Vol] on 03-28-2024 Basophils [...] [Mass/Vol] 2.5 g/dL Low 3.4-5.0 [facility] ALP [Catalytic activity/Vol] 93 U/L 46-116 [facility] ALT [Catalytic activity/Vol] 9 U/L Low 14-59 [facility] AST [Catalytic activity/Vol] 10 U/L Low 15-37 [facility] Bilirubin [Mass/Vol] 0.9 mg/dL 0.2-1.0 [facility] Calcium [Mass/Vol] 8.5 mg/dL 8.5-10.1 [facility] Chloride [Moles/Vol] 96 mmol/L Low 98-107 [facility] CO2 [Moles/Vol] 27.1 mmol/L 21.0-32.0 [facility] Creatinine [Mass/Vol] 1.33 mg/dL High 0.55-1.02 [facility] GFR/1.73 sq M.predicted MDRD (S/P/Bld) [Vol rate/Area] 47 mL/min/{1.73_m2} Low >=60 [facility] Glucose [Mass/Vol] 261 mg/dL High 74-106 [facility] Magnesium [Mass/Vol] 1.8 mg/dL 1.8-2.4 [facility] Natriuretic peptide B (Bld) [Mass/Vol] 3338.0 pg/mL High <=1800.0 [facility] Comment on above: RESULTS CALLED TO Claritza Sellers (RN)@BY BRANDON BarberT at 0554 Potassium [Moles/Vol] 3.8 mmol/L 3.5-5.1 [facility] Protein [Mass/Vol] 7.3 g/dL 6.4-8.2 [facility] Sodium [Moles/Vol] 133 mmol/L Low 136-145 [facility] Urea nitrogen [Mass/Vol] 36.0 mg/dL [...] 03-28-2024 MCHC (RBC) [Mass/Vol] 31.5 g/dL 29.9-35.2 [facility] MCV Auto (RBC) [Entitic vol] [...] Eosinophils # (Auto) 0.1 10 3/uL 0.0-0.7 [facility] Immature Granulocyte # (Auto) 0.03 [...] RBC (Bld) [#/Vol] 4.35 10 6/uL 4.20-5.40 [facility] Serum or plasma albumin/glob ulin mass ratioon 03-28-2024 Albumin/Globulin [Mass ratio] 0.5 {ratio} [facility] Serum or plasma anion gap de terminationon 03-28-2024 Anion gap [Moles/Vol] 13.7 mmol/L [facility] Basophils Auto (Bld) [#/Vol] on 03-27-2024 [...] [Mass/Vol] 2.6 g/dL Low 3.4-5.0 [facility] ALP [Catalytic activity/Vol] 89 U/L 46-116 [facility] ALT [Catalytic activity/Vol] 12 U/L Low 14-59 [facility] AST [Catalytic activity/Vol] 9 U/L Low 15-37 [facility] Bilirubin [Mass/Vol] 0.9 mg/dL 0.2-1.0 [facility] Calcium [Mass/Vol] 9.1 mg/dL 8.5-10.1 [facility] Chloride [Moles/Vol] 99 mmol/L 98-107 [facility] CO2 [Moles/Vol] 28.8 mmol/L 21.0-32.0 [facility] Creatinine [Mass/Vol] 1.19 mg/dL High 0.55-1.02 [facility] GFR/1.73 sq M.predicted MDRD (S/P/Bld) [Vol rate/Area] 53 mL/min/{1.73_m2} Low >=60 [facility] Glucose [Mass/Vol] 273 mg/dL High 74-106 [facility] Magnesium [Mass/Vol] 1.7 mg/dL Low 1.8-2.4 [facility] Natriuretic peptide B (Bld) [Mass/Vol] 4572.0 pg/mL High <=1800.0 [facility] Comment on above: RESULTS CALLED TO SA RA MIGUEL RN @BY Alla Kevin [phone] Potassium [Moles/Vol] 3.6 mmol/L 3.5-5.1 [facility] Protein [Mass/Vol] 7.2 g/dL 6.4-8.2 [facility] Sodium [Moles/Vol] 135 mmol/L Low 136-145 [facility] Urea nitrogen [Mass/Vol] 34.0 mg/dL [...] 03-27-2024 MCHC (RBC) [Mass/Vol] 32.4 g/dL 29.9-35.2 [facility] MCV Auto (RBC) [Entitic vol] [...] Eosinophils # (Auto) 0.1 10 3/uL 0.0-0.7 [facility] Immature Granulocyte # (Auto) 0.03 [...] (Bld) [#/Vol] 4.14 10 6/uL Low 4.20-5.40 [facility] Serum or plasma albumin/glob ulin mass ratioon 03-27-2024 Albumin/Globulin [Mass ratio] 0.6 {ratio} [facility] Serum or plasma anion gap de terminationon 03-27-2024 Anion gap [Moles/Vol] 10.8 mmol/L Fi [facility] Basophils Auto (Bld) [#/Vol] on 03-26-2024 [...] Calcium [Mass/Vol] 9.1 mg/dL 8.5-10.1 [facility] Chloride [Moles/Vol] 102 mmol/L 98-107 [facility] CO2 [Moles/Vol] 28.5 mmol/L 21.0-32.0 [facility] Creatinine [Mass/Vol] 1.14 mg/dL High 0.55-1.02 [facility] Free T4 [Mass/Vol] 1.29 ng/dL 0.76-1.46 [facility] GFR/1.73 sq M.predicted MDRD (S/P/Bld) [Vol rate/Area] 56 mL/min/{1.73_m2} Low >=60 [facility] Glucose [Mass/Vol] 246 mg/dL High 74-106 [facility] Natriuretic peptide B (Bld) [Mass/Vol] 2890.0 pg/mL High <=1800.0 [facility] Comment on above: RESULTS CALLED TO YOEL ROBIN RN @BY Alla Kunz 0556 Potassium [Moles/Vol] 4.3 mmol/L 3.5-5.1 [facility] Sodium [Moles/Vol] 136 mmol/L 136-145 [facility] TSH Qn 6.001 m[IU]/L High 0.358-3.740 [facility] [...] 03-26-2024 MCHC (RBC) [Mass/Vol] 31.7 g/dL 29.9-35.2 [facility] MCV Auto (RBC) [Entitic vol] [...] # (Auto) 0.1 10 3/uL 0.0-0.7 [facility] Immature Granulocyte # (Auto) 0.02 10 3/uL [...] RBC (Bld) [#/Vol] 4.36 10 6/uL 4.20-5.40 [facility] Serum or plasma anion gap de terminationon 03-26-2024 Anion gap [Moles/Vol] 9.8 mmol/L [facility] MR cervical spine wo conon 0 03-13-2024 MR cervical spine wo con [facility] [place] [address] MRI Report Signed Patient: Joe Call MR#: [id number] 0 : 1945 Acct:[id number] Age/Sex: 78 / F ADM Date: 03/13/24 [facility]: Type: [facility] Attending Dr: Eloina Hussein MD Copies [...] Jarred Randolph M.D.03/13/2024 3:47 PM Dictation Location: [place] [address] Transcribed By: [facility] 03/13/24 154 Dictated By: Jarred Randolph DO 03/13/24 154 Signed By: 03/13/24 154 Normal [facility] XR pre/post mri xrayon 03-13 XR pre/post mri xray [facility] [place] [address] MRI Report Signed Patient: Joe Call MR#: [id number] 0 : 1945 Acct:[id number] Age/Sex: 78 / F ADM Date: 03/13/24 [facility] Room: Type: [facility] Attending Dr: Eloina Hussein MD Copies to: Eloina Mullins MD Ordering Provider: Eloina Mullins MD Date of Service: 03/13/24 MR/MR lumbar spine wo con: M54.50 ([id number]) XR/XR pre/post mri xray: M54.50 MRI Lumbar [...] Jarred Randolph M.D.03/13/2024 3:58 PM Dictation Location: [place] [address] Transcribed By: [facility] 03/13/24 1558 Dictated By: Jarred Randolph DO 03/13/24 1551 Signed By: 03/13/24 1558 Normal [facility] Office Visiton 03-07-2024 Follow-up visit [id number] Joe Call 1945 F Date Provider Department Center 03/07/2024 RICA DEAN [facility] Family History Problem Relation Age of Onset Coronary artery disease Other Diabetes Other Polycystic kidney disease Other Family Status - Relation Status Age at Other Level of Service:12[address] CT OFFICE/OUTPATIENT ESTABLISHED MOD MDM 30 MIN Reason for Visit and Comments: Follow-up [668768] - 6 month Normal [facility] GI PANEL (PCR)on 03-06-2023 Adenovirus F 40/41 Not detected Normal NOT DETECTED [facility] Comment on above: Performed By: #### P OCGLUC #### [facility] [address] [place] [address] Dr. Kasia Nath Astrovirus Not detected Normal NOT DETECTED [facility] Comment on above: Performed By: #### P OCGLUC #### [facility] [address] [place] [address] Dr. Kasia Nath C. Diff toxin A/B Detected Critically abnormal NOT DETECTED [facility] Comment on above: Performed By: #### P OCGLUC #### [facility] [address] [place] [address] Dr. Kasia Nath Campylobacter Detected Critically abnormal NOT DETECTED [facility] Comment on above: Performed By: #### P OCGLUC #### [facility] [address] [place] [address] Dr. Kasia Nath Cryptosporidium Not detected Normal NOT DETECTED [facility] Comment on above: Performed By: #### P OCGLUC #### [facility] [address] [place] [address] Dr. Kasia Nath Cyclos. Cayetanensis Not detected Normal NOT DETECTED [facility] Comment on above: Performed By: #### P OCGLUC #### [facility] [address] [place] [address] Dr. Kasia Nath E. Coli O157 Not Applicable Normal Not Applicable [facility] Comment on above: Performed By: #### P OCGLUC #### [facility] [address] [place] [address] Dr. Kasia Nath E. histolytica Not detected Normal NOT DETECTED [facility] Comment on above: Performed By: #### P OCGLUC #### [facility] [address] [place] [address] Dr. Kasia Nath EAEC Not detected Normal NOT DETECTED [facility] Comment on above: Performed By: #### P OCGLUC #### [facility] [address] [place] [address] Dr. Kasia Nath EIEC Not detected Normal NOT DETECTED [facility] Comment on above: Performed By: #### P OCGLUC #### [facility] [address] [place] [address] Dr. Kasia Nath EPEC Not detected Normal NOT DETECTED [facility] Comment on above: Performed By: #### P OCGLUC #### [facility] [address] [address] [address] Kasia Nath ETEC Not detected Normal NOT DETECTED [facility] Comment on above: Performed By: #### P OCGLUC #### [facility] [address] [address] [address] Kasia Nath G. Lamblia Not detected Normal NOT DETECTED [facility] Comment on above: Performed By: #### P OCGLUC #### [facility] [address] [address] [address] Kasia KHAN CONTROLS PASSED Normal [facility] Comment on above: Performed By: #### P OCGLUC #### [facility] [address] [place] [address] Dr. Kasia FRAIRE HEADER GI PANEL BACTERIA Normal [facility] Comment on above: Performed By: #### P OCGLUC #### [facility] [address] [address] [address] Kasia GE ECOLI GI PANEL DIARRHEAGEN IC E.COLI / SHIGELLA Normal [facility] Comment on above: Performed By: #### P OCGLUC #### [facility] [address] [place] [address] Dr. Kasia GE INFO SEE BELOW Normal [facility] Comment on above: Result Comment: EAEC - Enteroaggregative E. Coli EPEC- Enteropathogenic E. Coli ETEC- Enterotoxigenic E. Coli lt/st STEC- Shigella-like toxin-producing E. Coli stx1/stx2 EIEC- Shigella/Enteroinvasive E. Coli Performed By: #### P OCGLUC #### [facility] [address] [address] [address] Kasia GE PARASITES GI PANEL PARASITES Normal [facility] Comment on above: Performed By: #### P OCGLUC #### [facility] [address] [address] [address] Yilan Nath GIPNLHD VIRUS GI PANEL VIRUSES Normal [facility] Comment on above: Performed By: #### P OCGLUC #### [facility] [address] [place] [address] Dr. Kasia Nath Norovirus GI/GII Not detected Normal NOT DETECTED [facility] Comment on above: Performed By: #### P OCGLUC #### [facility] [address] [place] [address] Dr. Kasia Nath P. Shigelloides Not detected Normal NOT DETECTED [facility] Comment on above: Performed By: #### P OCGLUC #### [facility] [address] [place] [address] Dr. Kasia Nath Rotavirus A Not detected Normal NOT DETECTED [facility] Comment on above: Performed By: #### P OCGLUC #### [facility] [address] [place] [address] Dr. Kasia Nath Salmonella Not detected Normal NOT DETECTED [facility] Comment on above: Performed By: #### P OCGLUC #### [facility] [address] [place] [address] Dr. Kasia Nath Sapovirus Not detected Normal NOT DETECTED [facility] Comment on above: Performed By: #### P OCGLUC #### [facility] [address] [place] [address] Dr. Kasia Nath STEC Not detected Normal NOT DETECTED [facility] Comment on above: Performed By: #### P OCGLUC #### [facility] [address] [place] [address] Dr. Kasia Nath Vibrio Not detected Normal NOT DETECTED [facility] Comment on above: Performed By: #### P OCGLUC #### [facility] [address] [place] [address] Dr. Kasia Nath Vibrio Cholera Not detected Normal NOT DETECTED [facility] Comment on above: Performed By: #### P OCGLUC #### [facility] [address] [place] [address] Dr. Kasia Nath Y. Enterocolitica Not detected Normal NOT DETECTED [facility] Comment on above: Performed By: #### P OCGLUC #### [facility] [address] [place] [address] Dr. Kasai Nath CBC AUTO DIFFon 02-14-2023 BASO # 0.0 103/ul Normal 0.0-0.1 [facility] Comment on above: Performed By: #### P OCGLUC #### [facility] [address] [place] [address] Dr. Kasia Nath Basophils/100 WBC (Bld) 0.5 % Normal 0.2-2.0 [facility] Comment on above: Performed By: #### P OCGLUC #### [facility] [address] [place] [address] Dr. Kasia Nath EO # 0.2 103/ul Normal 0.0-0.7 [facility] Comment on above: Performed By: #### P OCGLUC #### [facility] [address] [place] [address] Dr. Kasia Nath Eosinophils/100 WBC (Bld) 2.7 % Normal 0.9-7.0 [facility] Comment on above: Performed By: #### P OCGLUC #### [facility] [address] [place] [address] Dr. Kasia Nath Erythrocyte distribution width (RBC) [Ratio] 13.0 % Normal 11.0-15.0 [facility] Comment on above: Performed By: #### P OCGLUC #### [facility] [address] [place] [address] Dr. Kasia Nath Hematocrit (Bld) [Volume fraction] 35.9 % Critically low 36.0-48.0 [facility] Comment on above: Performed By: #### P OCGLUC #### [facility] [address] [place] [address] Dr. Kasia Nath Hemoglobin (Bld) [Mass/Vol] 12.0 g/dL Normal 12.0-16.0 [facility] Comment on above: Performed By: #### P OCGLUC #### [facility] [address] [place] [address] Dr. Kasia Nath IG # 0.02 10e3/ul Normal 0.00-0.03 [facility] Comment on above: Performed By: #### P OCGLUC #### [facility] [address] [address] [address] Kasia Nath IG % 0.3 % Normal 0.0-0.5 [facility] Comment on above: Performed By: #### P OCGLUC #### [facility] [address] [address] [address] Kasia Nath LYMPH # 1.8 103/ul Normal 1.2-3.8 [facility] Comment on above: Performed By: #### P OCGLUC #### [facility] [address] [address] [address] Kasia Nath Lymphocytes/100 WBC (Bld) 22.8 % Normal 20.5-60.0 [facility] Comment on above: Performed By: #### P OCGLUC #### [facility] [address] [place] [address] Dr. Kasia Nath MANUAL DIFF REQ NO Normal [facility] Comment on above: Performed By: #### P OCGLUC #### [facility] [address] [place] [address] Dr. Kasia Nath MCH (RBC) [Entitic mass] 29.4 pg Normal 26.7-34.0 [facility] Comment on above: Performed By: #### P OCGLUC #### [facility] [address] [place] [address] Dr. Kasia Nath MCHC (RBC) [Mass/Vol] 33.4 g/dL Normal 29.9-35.2 [facility] Comment on above: Performed By: #### P OCGLUC #### [facility] [address] [place] [address] Dr. Kasia Nath MCV (RBC) [Entitic vol] 88.0 fL Normal 81.0-99.0 [facility] Comment on above: Performed By: #### P OCGLUC #### [facility] [address] [place] [address] Dr. Kasia Nath MONO # 0.7 103/ul Normal 0.3-0.8 [facility] Comment on above: Performed By: #### P OCGLUC #### [facility] [address] [address] [address] Kasia Nath Monocytes/100 WBC (Bld) 9.3 % Normal 1.7-12.0 [facility] Comment on above: Performed By: #### P OCGLUC #### [facility] [address] [address] [address] Kasia Nath NEUT # 5.1 103/ul Normal 1.4-6.5 [facility] Comment on above: Performed By: #### P OCGLUC #### [facility] [address] [address] [address] Kasia Nath Neutrophils/100 WBC (Bld) 64.4 % Normal 43.0-75.0 [facility] Comment on above: Performed By: #### P OCGLUC #### [facility] [address] [place] [address] Dr. Kasia Nath Platelet mean volume (Bld) [Entitic vol] 11.7 fL Normal 9.5-13.5 [facility] Comment on above: Performed By: #### P OCGLUC #### [facility] [address] [place] [address] Dr. Kasia Nath PLT 175 103/ul Normal 150-450 [facility] Comment on above: Performed By: #### P OCGLUC #### [facility] [address] [place] [address] Dr. Kasia Nath RBC 4.08 106/ul Critically low 4.20-5.40 [facility] Comment on above: Performed By: #### P OCGLUC #### [facility] [address] [place] [address] Dr. Kasia Nath WBC 7.9 103/ul Normal 4.0-11.0 [facility] Comment on above: Performed By: #### P OCGLUC #### [facility] [address] [place] [address] Dr. Kasia Nath LIPASEon 02-14-2023 Lipase [Catalytic activity/Vol] 51.0 U/L Critically low 73.0-393.0 [facility] Comment on above: Performed By: #### L IPA, CMP ####[facility] [address] [address]Dr. Kasia Nath PROF 14(COMP METB)on 023 Albumin [Mass/Vol] 2.8 g/dL Critically low 3.4-5.0 [facility] Comment on above: Performed By: #### L IPA, CMP ####[facility] [address] [address]Dr. Kasia Ntah Albumin/Globulin [Mass ratio] 0.7 {ratio} Normal [facility] Comment on above: Performed By: #### L IPA, CMP ####[facility] [address] [address]Dr. Kasia Nath ALP [Catalytic activity/Vol] 90 U/L Normal 46-116 [facility] Comment on above: Performed By: #### L IPA, CMP ####[facility] [address] [address]Dr. Kasia Nath ALT [Catalytic activity/Vol] 15 U/L Normal 14-59 [facility] Comment on above: Performed By: #### L IPA, CMP ####[facility] [address] [address]Dr. Kasia Nath Anion gap [Moles/Vol] 15.6 mmol/L Normal [facility] Comment on above: Performed By: #### L IPA, CMP ####[facility] [address] [place] [address]Dr. Kasia Nath AST [Catalytic activity/Vol] 9 U/L Critically low 15-37 [facility] Comment on above: Performed By: #### L IPA, CMP ####[facility] [address] [address]Dr. Kasia Nath Bilirubin [Mass/Vol] 0.4 mg/dL Normal 0.2-1.0 [facility] Comment on above: Performed By: #### L IPA, CMP ####[facility] [address] [address]Dr. Kasia Nath Calcium [Mass/Vol] 9.1 mg/dL Normal 8.5-10.1 [facility] Comment on above: Performed By: #### L IPA, CMP ####[facility] [address] [place], [place] [address]Dr. Kasia Nath Chloride [Moles/Vol] 104 mmol/L Normal 98-107 [facility] Comment on above: Performed By: #### L IPA, CMP ####[facility] [address] [place], [place] [address]Dr. Kasia Nath CO2 [Moles/Vol] 17.0 mmol/L Critically low 21.0-32.0 [facility] Comment on above: Performed By: #### L IPA, CMP ####[facility] [address] [place], [place] [address]Dr. Kasia Nath Creatinine [Mass/Vol] 1.78 mg/dL Critically high 0.55-1.02 [facility] Comment on above: Performed By: #### L IPA, CMP ####[facility] [address] [place], [place] [address]Dr. Kasia Nath EGFR-AF HUNGARIAN 34 mL/min/1.73m2 Critically low >=60 [facility] Comment on above: Performed By: #### L IPA, CMP ####[facility] [address] [place], [place] [address]Dr. Kasia Nath EGFR-NON AF HUNGARIAN 28 mL/min/1.73m2 Critically low >=60 [facility] Comment on above: Performed By: #### L IPA, CMP ####[facility] [address] [place], [place] [address]Dr. Kasia Nath Globulin (S) [Mass/Vol] 4.3 g/dL Normal [facility] Comment on above: Performed By: #### L IPA, CMP ####[facility] [address] [place], [place] [address]Dr. Kasia Nath Glucose [Mass/Vol] 248 mg/dL Critically high 74-106 T [facility] Comment on above: Performed By: #### L IPA, CMP ####[facility] [address] [place], [place] [address]Dr. Kasia Nath Potassium [Moles/Vol] 4.6 mmol/L Normal 3.5-5.1 [facility] Comment on above: Performed By: #### L IPA, CMP ####[facility] [address] [place], [place] [address]Dr. Kasia Nath Protein [Mass/Vol] 7.1 g/dL Normal 6.4-8.2 [facility] Comment on above: Performed By: #### L IPA, CMP ####[facility] [address] [place], [place] [address]Dr. Kasia Portillo Sodium [Moles/Vol] 132 mmol/L Critically low 136-145 Th [facility] Comment on above: Performed By: #### L IPA, CMP ####[facility] [address] [place], [place] [address]Dr. Kasia Portillo Urea nitrogen [Mass/Vol] 78.0 mg/dL Critically high 7.0-18.0 [facility] Comment on above: Performed By: #### L IPA, CMP ####[facility] [address] [place], [place] [address]Dr. Fartuncristy Nath Urea nitrogen/Creatinine [Mass ratio] 43.8 mg/mg Normal [facility] Comment on above: Performed By: #### L IPA, CMP ####[facility] [address] [place], [place] [address]Dr. Kasia Portillo CBC AUTO DIFFon 02-13-2023 BASO # 0.0 103/ul Normal 0.0-0.1 [facility] Comment on above: Performed By: #### C BC ####[facility] [address] [place], [place] [address]Dr. Kasia Nath Basophils/100 WBC (Bld) 0.5 % Normal 0.2-2.0 [facility] Comment on above: Performed By: #### C BC ####[facility] [address] [place], [place] [address]Dr. Kasia Nath EO # 0.1 103/ul Normal 0.0-0.7 [facility] Comment on above: Performed By: #### C BC ####[facility] [address] [id number]. Kasia Nath Eosinophils/100 WBC (Bld) 1.0 % Normal 0.9-7.0 [facility] Comment on above: Performed By: #### C BC ####[facility] [address] [id number]. Kasia Nath Erythrocyte distribution width (RBC) [Ratio] 12.8 % Normal 11.0-15.0 [facility] Comment on above: Performed By: #### C BC ####[facility] [address] [place], [place] [address]Dr. Kasia Nath Hematocrit (Bld) [Volume fraction] 38.5 % Normal 36.0-48.0 [facility] Comment on above: Performed By: #### C BC ####[facility] [address] [place], [place] [address]Dr. Kasia Nath Hemoglobin (Bld) [Mass/Vol] 13.0 g/dL Normal 12.0-16.0 [facility] Comment on above: Performed By: #### C BC ####[facility] [address] [address]Dr. Kasia Nath IG # 0.02 10e3/ul Normal 0.00-0.03 [facility] Comment on above: Performed By: #### C BC ####[facility] [address] [address]Dr. Kasia Nath IG % 0.2 % Normal 0.0-0.5 [facility] Comment on above: Performed By: #### C BC ####[facility] [address] [id number]. Kasia Nath LYMPH # 0.9 103/ul Critically low 1.2-3.8 [facility] Comment on above: Performed By: #### C BC ####[facility] [address] [place], [place] [address]Dr. Kasia Nath Lymphocytes/100 WBC (Bld) 10.0 % Critically low 20.5-60.0 [facility] Comment on above: Performed By: #### C BC ####[facility] [address] [id number]. Kasia Nath MANUAL DIFF REQ NO Normal [facility] Comment on above: Performed By: #### C BC ####[facility] [address] [id number]. Kasia Nath MCH (RBC) [Entitic mass] 29.5 pg Normal 26.7-34.0 [facility] Comment on above: Performed By: #### C BC ####[facility] [address] [id number]. Kasia Nath MCHC (RBC) [Mass/Vol] 33.8 g/dL Normal 29.9-35.2 [facility] Comment on above: Performed By: #### C BC ####[facility] [address] [id number]. Kasia Nath MCV (RBC) [Entitic vol] 87.5 fL Normal 81.0-99.0 [facility] Comment on above: Performed By: #### C BC ####[facility] [address] [id number]. Kasia Nath MONO # 0.5 103/ul Normal 0.3-0.8 [facility] Comment on above: Performed By: #### C BC ####[facility] [address] [id number]. Kasia Portillo Monocytes/100 WBC (Bld) 5.7 % Normal 1.7-12.0 [facility] Comment on above: Performed By: #### C BC ####[facility] [address] [id number]. Kasia Nath NEUT # 7.2 103/ul Critically high 1.4-6.5 [facility] Comment on above: Performed By: #### C BC ####[facility] [facility] X[address] [place], [place] [id number]. Kasia Portillo Neutrophils/100 WBC (Bld) 82.6 % Critically high 43.0-75.0 [facility] Comment on above: Performed By: #### C BC ####[facility] [address] [place], [place] [address]Tb. Kasia Nath Platelet mean volume (Bld) [Entitic vol] 11.8 fL Normal 9.5-13.5 [facility] Comment on above: Performed By: #### C BC ####[facility] [address] [place], [place] [address]Bh. Kasia Nath PLT 187 103/ul Normal 150-450 [facility] Comment on above: Performed By: #### C BC ####[facility] [address] [place], [place] [address]Xc. Kasia Nath RBC 4.40 106/ul Normal 4.20-5.40 [facility] Comment on above: Performed By: #### C BC ####[facility] [address] [place], [place] [address]Sl. Kasia Nath WBC 8.8 103/ul Normal 4.0-11.0 [facility] Comment on above: Performed By: #### C BC ####[facility] [address] [place], [place] [address]Bm. Kasia Nath CT ABD/PELVIS WO CONon 02-13 [...] JACOB MCCURDY Date: 2023-02-13 14:40 Normal [facility] CULTURE URINEon 02-13-2023 CULTURE URINE Culture Observations : LIGHT GROWTH OF MIXED GENITAL VON. NO POTENTIAL PATHOGENS SEEN. Normal [facility] Comment on above: Performed By: #### U RCX ####[facility] [address] [place], [place] [address]AeDr. Kasia Nath Covid-19 PCR ([facility])on SARS-CoV-2 (COVID-19) RNA FERN+probe Ql (Unsp spec) Not detected Normal NOT DETECTED The [facility] Comment on above: Result Comment: [...] for this test is supported by the [place] of [employer] and Human Service's declaration that [...] used). Performed By: #### P OCGLUC #### [facility] [address] [place], [place] [address] Dr. Kasia Nath GI PANEL (PCR)on 02-13-2023 Adenovirus F 40/41 Not detected Normal NOT DETECTED [facility] Comment on above: Performed By: #### C BC #### [facility] [address] [place] [address] Dr. Kasia Nath Astrovirus Not detected Normal NOT DETECTED [facility] Comment on above: Performed By: #### C BC #### [facility] [address] [place] [address] Dr. Kasia Del Real. Diff toxin A/B Not detected Normal NOT DETECTED The [facility] Comment on above: Performed By: #### C BC #### [facility] [address] [place] [address] Dr. Kasia Nath Campylobacter Not detected Normal NOT DETECTED [facility] Comment on above: Performed By: #### C BC #### [facility] [address] [place] [address] Dr. Kasia Nath Cryptosporidium Not detected Normal NOT DETECTED [facility] Comment on above: Performed By: #### C BC #### [facility] [address] [place] [address] Dr. Kasia Nath Cyclos. Cayetanensis Not detected Normal NOT DETECTED The [facility] Comment on above: Performed By: #### C BC #### [facility] [address] [place] [address] Dr. Kasia Nath E. Coli O157 Not Applicable Normal Not Applicable [facility] Comment on above: Performed By: #### C BC #### [facility] [address] [place] [address] Dr. Kasia Nath E. histolytica Not detected Normal NOT DETECTED The [facility] Comment on above: Performed By: #### C BC #### [facility] [address] [place] [address] Dr. Kasia Nath EAEC Not detected Normal NOT DETECTED The [facility] Comment on above: Performed By: #### C BC #### [facility] [address] [place] [address] Dr. Kasia Nath EIEC Not detected Normal NOT DETECTED [facility] Comment on above: Performed By: #### C BC #### [facility] [address] [place] [address] Dr. Kasia Nath EPEC Not detected Normal NOT DETECTED [facility] Comment on above: Performed By: #### C BC #### [facility] [address] [place] [address] [address] Kasia Nath ETEC Not detected Normal NOT DETECTED [facility] Comment on above: Performed By: #### C BC #### [facility] [address] [place] [address] [address] Kasia Terrazas Lamblia Not detected Normal NOT DETECTED The [facility] Comment on above: Performed By: #### C BC #### [facility] [address] [place] [address] [address] Kasia KHAN CONTROLS PASSED Normal [facility] Comment on above: Performed By: #### C BC #### [facility] [address] [place] [address] [address] Kasia FRAIRE HEADER GI PANEL BACTERIA Normal T [facility] Comment on above: Performed By: #### C BC #### [facility] [address] [place] [address] [address] Kasia GE ECOLI GI PANEL DIARRHEAGEN IC E.COLI / SHIGELLA Normal [facility] Comment on above: Performed By: #### C BC #### [facility] [address] [place] [address] Dr. Kasia GE INFO SEE BELOW Normal [facility] Comment on above: Result Comment: EAEC - Enteroaggregative E. Coli EPEC- Enteropathogenic E. Coli ETEC- Enterotoxigenic E. Coli lt/st STEC- Shigella-like toxin-producing E. Coli stx1/stx2 EIEC- Shigella/Enteroinvasive E. Coli Performed By: #### C BC #### [facility] [address] [place] [address] Dr. Kasia GE PARASITES GI PANEL PARASITES Normal [facility] Comment on above: Performed By: #### C BC #### [facility] [address] [place] [address] [address] Kasia GE VIRUS GI PANEL VIRUSES Normal The [facility] Comment on above: Performed By: #### C BC #### [facility] [address] [place] [address] Dr. Kasia Nath Norovirus GI/GII Not detected Normal NOT DETECTED The [facility] Comment on above: Performed By: #### C BC #### [facility] [address] [place] [address] Dr. Kasia Nath P. Shigelloides Not detected Normal NOT DETECTED The [facility] Comment on above: Performed By: #### C BC #### [facility] [address] [place] [address] Dr. Kasia Nath Rotavirus A Not detected Normal NOT DETECTED [facility] Comment on above: Performed By: #### C BC #### [facility] [address] [place] [address] Dr. Kasia Nath Salmonella Not detected Normal NOT DETECTED The [facility] Comment on above: Performed By: #### C BC #### [facility] [address] [place] [address] Dr. Kasia Nath Sapovirus Not detected Normal NOT DETECTED The [facility] Comment on above: Performed By: #### C BC #### [facility] [address] [place] [address] Dr. Kasia Nath STEC Not detected Normal NOT DETECTED The [facility] Comment on above: Performed By: #### C BC #### [facility] [address] [place] [address] Dr. Kasia Nath Vibrio Not detected Normal NOT DETECTED The [facility] Comment on above: Performed By: #### C BC #### [facility] [address] [place] [address] Dr. Kasia Nath Vibrio Cholera Not detected Normal NOT DETECTED The [facility] Comment on above: Performed By: #### C BC #### [facility] [address] [place] [address] Dr. Kasia Nath Y. Enterocolitica Not detected Normal NOT DETECTED The [facility] Comment on above: Performed By: #### C BC #### [facility] [address] [place] [address] Dr. Kasia Nath LACTATE/LACTIC ACIDon 2022 Lactate [Moles/Vol] 1.7 mmol/L Normal 0.4-2.0 [facility] Comment on above: Performed By: #### L ACT ####[facility] [address] [place] [address]Dr. Kasia Nath LIPASEon 02-13-2023 Lipase [Catalytic activity/Vol] 82.0 U/L Normal 73.0-393.0 [facility] Comment on above: Performed By: #### L IPA, CMP #### [facility] [address] [place] [address] [address] Kasia Nath POINT OF CARE GLUCOSEon Glucose [Mass/Vol] 229 mg/dL Critically high 74-106 [facility] Comment on above: Performed By: #### P OCGLUC #### [facility] [address] [place] [address] Dr. Kasia Nath Glucose [Mass/Vol] 474 mg/dL Critically high 74-106 [facility] Comment on above: Performed By: #### P OCGLUC #### [facility] [address] [place] [address] Dr. Kasia Nath PROF 14(COMP METB)on 023 Albumin [Mass/Vol] 3.4 g/dL Normal 3.4-5.0 [facility] Comment on above: Performed By: #### L IPA, CMP #### [facility] [address] [place] [address] Dr. Kasia Nath Albumin/Globulin [Mass ratio] 0.7 {ratio} Normal [facility] Comment on above: Performed By: #### L IPA, CMP #### [facility] [address] [place] [address] Dr. Kasia Nath ALP [Catalytic activity/Vol] 106 U/L Normal 46-116 [facility] Comment on above: Performed By: #### L IPA, CMP #### [facility] [address] [place] [address] Dr. Kasia Nath ALT [Catalytic activity/Vol] 21 U/L Normal 14-59 [facility] Comment on above: Performed By: #### L IPA, CMP #### [facility] [address] [place] [address] [address] Kasia Nath Anion gap [Moles/Vol] 17.7 mmol/L Normal Th [facility] Comment on above: Performed By: #### L IPA, CMP #### [facility] [address] [place] [address] [address] Kasia Nath AST [Catalytic activity/Vol] 11 U/L Critically low 15-37 [facility] Comment on above: Performed By: #### L IPA, CMP #### [facility] [address] [place] [address] [address] Kasia Nath Bilirubin [Mass/Vol] 0.5 mg/dL Normal 0.2-1.0 [facility] Comment on above: Performed By: #### L IPA, CMP #### [facility] [address] [place] [address] [address] Kasia Nath Calcium [Mass/Vol] 9.6 mg/dL Normal 8.5-10.1 [facility] Comment on above: Performed By: #### L IPA, CMP #### [facility] [address] [place] [address] [address] Kasia Nath Chloride [Moles/Vol] 99 mmol/L Normal 98-107 [facility] Comment on above: Performed By: #### L IPA, CMP #### [facility] [address] [place] [address] [address] Kasia Nath CO2 [Moles/Vol] 20.6 mmol/L Critically low 21.0-32.0 [facility] Comment on above: Performed By: #### L IPA, CMP #### [facility] [address] [place] [address] [address] Kasia Nath Creatinine [Mass/Vol] 2.14 mg/dL Critically high 0.55-1.02 [facility] Comment on above: Performed By: #### L IPA, CMP #### [facility] [address] [place] [address] [address] Kasia Nath EGFR-AF HUNGARIAN 27 mL/min/1.73m2 Critically low >=60 [facility] Comment on above: Performed By: #### L IPA, CMP #### [facility] [address] [place] [address] [address] Kasia Nath EGFR-NON AF HUNGARIAN 22 mL/min/1.73m2 Critically low >=60 [facility] Comment on above: Performed By: #### L IPA, CMP #### [facility] [address] [place] [address] [address] Kasia Nath Globulin (S) [Mass/Vol] 4.8 g/dL Normal [facility] Comment on above: Performed By: #### L IPA, CMP #### [facility] [address] [place] [address] [address] Kasia Nath Glucose [Mass/Vol] 498 mg/dL Critically high 74-106 T [facility] Comment on above: Performed By: #### L IPA, CMP #### [facility] [address] [place] [address] [address] Kasia Nath Potassium [Moles/Vol] 5.3 mmol/L Critically high 3.5-5.1 [facility] Comment on above: Performed By: #### L IPA, CMP #### [facility] [address] [place] [address] [address] Kasia Nath Protein [Mass/Vol] 8.2 g/dL Normal 6.4-8.2 [facility] Comment on above: Performed By: #### L IPA, CMP #### [facility] [address] [place] [address] [address] Kasia Nath Sodium [Moles/Vol] 132 mmol/L Critically low 136-145 Th [facility] Comment on above: Performed By: #### L IPA, CMP #### [facility] [address] [place] [address] [address] Kasia Nath Urea nitrogen [Mass/Vol] 86.0 mg/dL Critically high 7.0-18.0 [facility] Comment on above: Performed By: #### L IPA, CMP #### [facility] [address] [place] [address] [address] Kasia Nath Urea nitrogen/Creatinine [Mass ratio] 40.2 mg/mg Normal [facility] Comment on above: Performed By: #### L IPA, CMP #### [facility] [address] [place] [address] [address] Kasia Nath UA RANDOM W/MICROSCOPICon BACTERIA TRACE Abnormal NONE SEEN The [facility] Comment on above: Performed By: #### U AMIC ####[facility] [address] [place] [address]Dr. Kasia Nath Bilirubin Ql (U) Negative Normal NEGATIVE [facility] Comment on above: Performed By: #### U AMIC ####[facility] [address] [place] [address]Dr. Kasia Nath CAST SEEN Abnormal NONE SEEN The [facility] Comment on above: Performed By: #### U AMIC ####[facility] [address] [place] [address]Dr. Kasia Nath Clarity (U) CLEAR Normal CLEAR [facility] Comment on above: Performed By: #### U AMIC ####[facility] [address] [place] [address]Dr. Kasia Nath Color (U) LT. YELLOW Normal YELLOW [facility] Comment on above: Performed By: #### U AMIC ####[facility] [address] [place] [address]Dr. Kasia Nath Crystals LM Nom (Urine sed) NONE SEEN Normal NONE SEEN [facility] Comment on above: Performed By: #### U AMIC ####[facility] [address] [place] [address]Dr. Kasia Nath Epithelial cells LM Ql (Urine sed) FEW Abnormal NONE SEEN /RARE The [facility] Comment on above: Performed By: #### U AMIC ####[facility] [address] [place] [address]Dr. Kasia Nath Glucose Ql (U) >1000 Abnormal NEGATIVE [facility] Comment on above: Performed By: #### U AMIC ####[facility] [address] [place] [address]Dr. Kasia Nath Hemoglobin Ql (U) Negative Normal NEGATIVE The [facility] Comment on above: Performed By: #### U AMIC ####[facility] [address] [place] [address]Dr. Kasia Nath HYALINE CAST RARE Normal The [facility] Comment on above: Performed By: #### U AMIC ####[facility] [address] [place] [address]Dr. Kasia Nath Ketones Ql (U) Negative Normal NEGATIVE [facility] Comment on above: Performed By: #### U AMIC ####[facility] [address] [place] [address]Dr. Kasia Nath LEUKOCYTES Negative Normal NEGATIVE The [facility] Comment on above: Performed By: #### U AMIC ####[facility] [address] [place] [address]Dr. Kasia Nath MUCOUS NONE SEEN Normal NONE SEEN The [facility] Comment on above: Performed By: #### U AMIC ####[facility] [address] [place] [address]Dr. Kasia Nath Nitrite Ql (U) Negative Normal NEGATIVE [facility] Comment on above: Performed By: #### U AMIC ####[facility] [address] [place], [place] [address]Dr. Kasia Nath pH (U) 5.5 [pH] Normal 5-9 [facility] Comment on above: Performed By: #### U AMIC ####[facility] [address] [place] [address]Dr. Kasia Nath RBC 0-2 Normal 0-2 [facility] Comment on above: Performed By: #### U AMIC ####[facility] [address] [place] [address]Dr. Kasia Nath SPEC GRAVITY 1.015 Normal 1.005-<=1.0 25 [facility] Comment on above: Performed By: #### U AMIC ####[facility] [address] [place] [address]Dr. Kasia Nath UA PROTEIN TRACE Normal NEGATIVE/ TRACE The [facility] Comment on above: Performed By: #### U AMIC ####[facility] [address] [place] [address]Dr. Kasia Nath Urobilinogen Qn (U) 0.2 {Meka'U}/dL Normal 0.2 - 1. 0 [facility] Comment on above: Performed By: #### U AMIC ####[facility] [address] [place] [address]Dr. Kasia Naht WBC 0-2 Abnormal NONE SEEN The [facility] Comment on above: Performed By: #### U AMIC ####[facility] [address] [place] [address]Dr. Kasia Nath BNPon 01-16-2023 Natriuretic peptide B (Bld) [Mass/Vol] 1675.0 pg/mL Normal <=1,800.0 [facility] Comment on above: Performed By: #### B MONOLOGIST, CMP ####[facility] [address] [place], [place] [address]Dr. Kasia Nath PROF 14(COMP METB)on 023 Albumin [Mass/Vol] 3.4 g/dL Normal 3.4-5.0 [facility] Comment on above: Performed By: #### B MONOLOGIST, CMP ####[facility] [address] [place], [place] [address]Dr. Kasia Nath Albumin/Globulin [Mass ratio] 0.8 {ratio} Normal [facility] Comment on above: Performed By: #### B MONOLOGIST, CMP ####[facility] [address] [place], [place] [address]Dr. Kasia Nath ALP [Catalytic activity/Vol] 99 U/L Normal 46-116 [facility] Comment on above: Performed By: #### B MONOLOGIST, CMP ####[facility] [address] [place], [place] [address]Dr. Kasia Nath ALT [Catalytic activity/Vol] 18 U/L Normal 14-59 [facility] Comment on above: Performed By: #### B MONOLOGIST, CMP ####[facility] [address] [place], [place] [address]Dr. Kasia Nath Anion gap [Moles/Vol] 10.6 mmol/L Normal [facility] Comment on above: Performed By: #### B MONOLOGIST, CMP ####[facility] [address] [place], [place] [address]Dr. Kasia Portillo AST [Catalytic activity/Vol] 15 U/L Normal 15-37 [facility] Comment on above: Performed By: #### B MONOLOGIST, CMP ####[facility] [address] [place], [place] [address]Dr. Fartuncristy Portillo Bilirubin [Mass/Vol] 0.5 mg/dL Normal 0.2-1.0 [facility] Comment on above: Performed By: #### B MONOLOGIST, CMP ####[facility] [address] [place], [place] [address]Dr. Kasia Nath Calcium [Mass/Vol] 9.1 mg/dL Normal 8.5-10.1 [facility] Comment on above: Performed By: #### B MONOLOGIST, CMP ####[facility] [address] [place], [place] [address]Dr. Kasia Nath Chloride [Moles/Vol] 98 mmol/L Normal 98-107 [facility] Comment on above: Performed By: #### B MONOLOGIST, CMP ####[facility] [address] [place], [place] [address]Dr. Kasia Nath CO2 [Moles/Vol] 30.4 mmol/L Normal 21.0-32.0 [facility] Comment on above: Performed By: #### B MONOLOGIST, CMP ####[facility] [address] [place], [place] [address]Dr. Kasia Nath Creatinine [Mass/Vol] 1.44 mg/dL Critically high 0.55-1.02 [facility] Comment on above: Performed By: #### B MONOLOGIST, CMP ####[facility] [address] [place], [place] [address]Dr. Kasia Nath EGFR-AF HUNGARIAN 43 mL/min/1.73m2 Critically low >=60 [facility] Comment on above: Performed By: #### B MONOLOGIST, CMP ####[facility] [address] [place], [place] [address]Dr. Kasia Nath EGFR-NON AF HUNGARIAN 35 mL/min/1.73m2 Critically low >=60 [facility] [facility] Comment on above: Performed By: #### B MONOLOGIST, CMP ####[facility] [address] [address]Dr. Kasia Nath Globulin (S) [Mass/Vol] 4.4 g/dL Normal [facility] Comment on above: Performed By: #### B MONOLOGIST, CMP ####[facility] [address] [place], [place] [address]Dr. Kasia Nath Glucose [Mass/Vol] 401 mg/dL Critically high 74-106 T [facility] Comment on above: Performed By: #### B MONOLOGIST, CMP ####[facility] [address] [place], [place] [address]Dr. Kasia Nath Potassium [Moles/Vol] 5.0 mmol/L Normal 3.5-5.1 [facility] Comment on above: Performed By: #### B MONOLOGIST, CMP ####[facility] [address] [place], [place] [address]Dr. Kasia Nath Protein [Mass/Vol] 7.8 g/dL Normal 6.4-8.2 [facility] Comment on above: Performed By: #### B MONOLOGIST, CMP ####[facility] [address] [place], [place] [address]Dr. Kasia Nath Sodium [Moles/Vol] 134 mmol/L Critically low 136-145 Th [facility] Comment on above: Performed By: #### B MONOLOGIST, CMP ####[facility] [address] [place], [place] [address]Dr. Kasia Nath Urea nitrogen [Mass/Vol] 46.0 mg/dL Critically high 7.0-18.0 [facility] Comment on above: Performed By: #### B MONOLOGIST, CMP ####[facility] [address] [place], [place] [address]Dr. Kasia Nath Urea nitrogen/Creatinine [Mass ratio] 31.9 mg/mg Normal [facility] Comment on above: Performed By: #### B MONOLOGIST, CMP ####[facility] [address] [id number]. Kasia Nath BNPon 01-05-2023 Natriuretic peptide B (Bld) [Mass/Vol] 1389.0 pg/mL Normal <=1,800.0 [facility] Comment on above: Performed By: #### B MONOLOGIST, CMADM, CMP ####[facility] [address] [address]Dr. Kasia Nath CARDIAC EMERY ADMITon 023 CK [Catalytic activity/Vol] 138 U/L Normal 26-192 [facility] Comment on above: Performed By: #### B MONOLOGIST, CMADM, CMP ####[facility] [address] [address]Dr. Kasia Nath CK.MB [Mass/Vol] 2.22 ng/mL Normal <=3.60 [facility] Comment on above: Performed By: #### B MONOLOGIST, CMADM, CMP ####[facility] [address] [address]Dr. Kasia Nath HSTROP 15.9 pg/mL Normal 4.0-51.3 [facility] Comment on above: Result Comment: CUT- OFF POINTS HAVE BEEN ESTABLISHED BASED ON THE FOURTH UNIVERSAL DEFINITIONS OF MYOCARDIAL INFARCTION. THE UPPER REFERENCE LIMIT (URL) OF TROPONIN, DEFINED THE 99TH PERCENTILE OF cTnI DISTRIBUTION IN A REFERENCE POPULATION, HAS BEEN CONFIRMED THE DECISION THRESHOLD FOR ME DIAGNOSIS. Performed By: #### B MONOLOGIST, CMADM, CMP ####[facility] [address] [address]DrDoreen Nath GRETTA 178 ng/mL Critically high 9-82 [facility] Comment on above: Performed By: #### B MONOLOGIST, CMADM, CMP ####[facility] [address] [id number]. Kasia Nath CBC AUTO DIFFon 01-05-2023 BASO # 0.1 103/ul Normal 0.0-0.1 [facility] Comment on above: Performed By: #### C BC #### [facility] [id number] Kasia Nath Basophils/100 WBC (Bld) 0.7 % Normal 0.2-2.0 [facility] Comment on above: Performed By: #### C BC #### [facility] [address] [place] [address] Dr. Kasia Nath EO # 0.3 103/ul Normal 0.0-0.7 [facility] Comment on above: Performed By: #### C BC #### [facility] [address] [place] [address] Dr. Kasia Nath Eosinophils/100 WBC (Bld) 2.9 % Normal 0.9-7.0 [facility] Comment on above: Performed By: #### C BC #### [facility] [address] [place] [address] Dr. Kasia Nath Erythrocyte distribution width (RBC) [Ratio] 13.5 % Normal 11.0-15.0 [facility] Comment on above: Performed By: #### C BC #### [facility] [address] [place] [address] Dr. Kasia Nath Hematocrit (Bld) [Volume fraction] 39.8 % Normal 36.0-48.0 [facility] Comment on above: Performed By: #### C BC #### [facility] [address] [place] [address] Dr. Kasia Nath Hemoglobin (Bld) [Mass/Vol] 13.5 g/dL Normal 12.0-16.0 [facility] Comment on above: Performed By: #### C BC #### [facility] [address] [place] [address] Dr. Kasia Nath IG # 0.02 10e3/ul Normal 0.00-0.03 [facility] Comment on above: Performed By: #### C BC #### [facility] [address] [place] [address] Dr. Kasia Nath IG % 0.2 % Normal 0.0-0.5 [facility] Comment on above: Performed By: #### C BC #### [facility] [address] [place] [address] Dr. Kasia Nath LYMPH # 1.9 103/ul Normal 1.2-3.8 [facility] Comment on above: Performed By: #### C BC #### [facility] [address] [place] [address] Dr. Kasia Nath Lymphocytes/100 WBC (Bld) 22.0 % Normal 20.5-60.0 [facility] Comment on above: Performed By: #### C BC #### [facility] [address] [place] [address] Dr. Kasia Nath MANUAL DIFF REQ NO Normal [facility] Comment on above: Performed By: #### C BC #### [facility] [address] [place] [address] Dr. Kasia Nath MCH (RBC) [Entitic mass] 29.8 pg Normal 26.7-34.0 [facility] Comment on above: Performed By: #### C BC #### [facility] [address] [place] [address] Dr. Kasia Nath MCHC (RBC) [Mass/Vol] 33.9 g/dL Normal 29.9-35.2 [facility] Comment on above: Performed By: #### C BC #### [facility] [address] [place] [address] Dr. Kasia Nath MCV (RBC) [Entitic vol] 87.9 fL Normal 81.0-99.0 [facility] Comment on above: Performed By: #### C BC #### [facility] [address] [place] [address] Dr. Kasia Nath MONO # 0.8 103/ul Normal 0.3-0.8 [facility] Comment on above: Performed By: #### C BC #### [facility] [address] [place] [address] Dr. Kasia Nath Monocytes/100 WBC (Bld) 8.8 % Normal 1.7-12.0 [facility] Comment on above: Performed By: #### C BC #### [facility] [address] [place] [address] Dr. Kasia Nath NEUT # 5.6 103/ul Normal 1.4-6.5 [facility] Comment on above: Performed By: #### C BC #### [facility] [address] [address] [address] Kasia Nath Neutrophils/100 WBC (Bld) 65.4 % Normal 43.0-75.0 [facility] Comment on above: Performed By: #### C BC #### [facility] [address] [address] [address] Kasia Nath Platelet mean volume (Bld) [Entitic vol] 10.6 fL Normal 9.5-13.5 [facility] Comment on above: Performed By: #### C BC #### [facility] [address] [address] [address] Kasia Nath PLT 222 103/ul Normal 150-450 [facility] Comment on above: Performed By: #### C BC #### [facility] [address] [address] [address] Kasia Nath RBC 4.53 106/ul Normal 4.20-5.40 [facility] Comment on above: Performed By: #### C BC #### [facility] [address] [address] [address] Kasia Nath WBC 8.6 103/ul Normal 4.0-11.0 [facility] Comment on above: Performed By: #### C BC #### [facility] [address] [place] [address] Dr. Kasia Nath PROF 14(COMP METB)on 023 Albumin [Mass/Vol] 3.3 g/dL Critically low 3.4-5.0 Th [facility] Comment on above: Performed By: #### B MONOLOGIST, CMADM, CMP #### [facility] [address] [address] [address] Kasia Nath Albumin/Globulin [Mass ratio] 0.7 {ratio} Normal [facility] Comment on above: Performed By: #### B MONOLOGIST, CMADM, CMP #### [facility] [address] [address] [address] Kasia Nath ALP [Catalytic activity/Vol] 106 U/L Normal 46-116 [facility] Comment on above: Performed By: #### B MONOLOGIST, CMADM, CMP #### [facility] [address] [address] [address] Kasia Nath ALT [Catalytic activity/Vol] 22 U/L Normal 14-59 [facility] Comment on above: Performed By: #### B MONOLOGIST, CMADM, CMP #### [facility] [address] [address] [address] Kasia Nath Anion gap [Moles/Vol] 12.0 mmol/L Normal Th [facility] Comment on above: Performed By: #### B MONOLOGIST, CMADM, CMP #### [facility] [address] [place] [address] Dr. Kasia Nath AST [Catalytic activity/Vol] 23 U/L Normal 15-37 [facility] Comment on above: Performed By: #### B MONOLOGIST, CMADM, CMP #### [facility] [address] [place] [address] Dr. Kasia Nath Bilirubin [Mass/Vol] 0.7 mg/dL Normal 0.2-1.0 [facility] Comment on above: Performed By: #### B MONOLOGIST, CMADM, CMP #### [facility] [address] [place] [address] Dr. Kasia Nath Calcium [Mass/Vol] 8.8 mg/dL Normal 8.5-10.1 [facility] Comment on above: Performed By: #### B MONOLOGIST, CMADM, CMP #### [facility] [address] [address] [address] Kasia Nath Chloride [Moles/Vol] 98 mmol/L Normal 98-107 [facility] Comment on above: Performed By: #### B MONOLOGIST, CMADM, CMP #### [facility] [address] [place] [address] Dr. Kasia Nath CO2 [Moles/Vol] 30.2 mmol/L Normal 21.0-32.0 [facility] Comment on above: Performed By: #### B MONOLOGIST, CMADM, CMP #### [facility] [address] [place] [address] Dr. Kasia Nath Creatinine [Mass/Vol] 1.19 mg/dL Critically high 0.55-1.02 [facility] Comment on above: Performed By: #### B MONOLOGIST, MACDM, CMP #### [facility] [address] [address] [address] Kasia Nath EGFR-AF HUNGARIAN 53 mL/min/1.73m2 Critically low >=60 [facility] Comment on above: Performed By: #### B MONOLOGIST, CMADM, CMP #### [facility] [address] [place] [address] Dr. Kasia Nath EGFR-NON AF HUNGARIAN 44 mL/min/1.73m2 Critically low >=60 [facility] Comment on above: Performed By: #### B MONOLOGIST, CMADM, CMP #### [facility] [address] [place] [address] Dr. Kasia Nath Globulin (S) [Mass/Vol] 4.7 g/dL Normal [facility] Comment on above: Performed By: #### B MONOLOGIST, CMADM, CMP #### [facility] [address] [place] [address] Dr. Kasia Nath Glucose [Mass/Vol] 124 mg/dL Critically high 74-106 [facility] Comment on above: Performed By: #### B MONOLOGIST, MACDM, CMP #### [facility] [address] [place] [address] Dr. Kasia Nath Potassium [Moles/Vol] 3.2 mmol/L Critically low 3.5-5.1 [facility] Comment on above: Performed By: #### B MONOLOGIST, CMADM, CMP #### [facility] [address] [place] [address] Dr. Kasia Naht Protein [Mass/Vol] 8.0 g/dL Normal 6.4-8.2 [facility] Comment on above: Performed By: #### B MONOLOGIST, CMADM, CMP #### [facility] [address] [place] [address] Dr. Kasia Nath Sodium [Moles/Vol] 137 mmol/L Normal 136-145 [facility] Comment on above: Performed By: #### B MONOLOGIST, CMADM, CMP #### [facility] [address] [place], [place] [address] Dr. Kasia Nath Urea nitrogen [Mass/Vol] 29.0 mg/dL Critically high 7.0-18.0 [facility] Comment on above: Performed By: #### B MONOLOGIST, CMADM, CMP #### [facility] [address] [place], [place] [address] Dr. Kasia Nath Urea nitrogen/Creatinine [Mass ratio] 24.4 mg/mg Normal [facility] Comment on above: Performed By: #### B MONOLOGIST, CMADM, CMP #### [facility] [address] [place], [place] [address] Dr. Kasia Nath TROPONIN, HIGH SENSITIVITYon 01-05-2023 HSTROP 18.4 pg/mL Normal 4.0-51.3 [facility] Comment on above: Result Comment: CUT- OFF POINTS HAVE BEEN ESTABLISHED BASED ON THE FOURTH UNIVERSAL DEFINITIONS OF MYOCARDIAL INFARCTION. THE UPPER REFERENCE LIMIT (URL) OF TROPONIN, DEFINED THE 99TH PERCENTILE OF cTnI DISTRIBUTION IN A REFERENCE POPULATION, HAS BEEN CONFIRMED THE DECISION THRESHOLD FOR ME DIAGNOSIS. Performed By: #### H STROPN ####[facility] [address] [place], [place] [address]SsDr. Kasia Nath XR CHEST 1 Von 01-05-2023 [...] BIN ROJAS Date: 2023-01-05 04:39 Normal [facility] BNPon 01-02-2023 Natriuretic peptide B (Bld) [Mass/Vol] 2583.0 pg/mL Critically high <=1,800.0 [facility] Comment on above: Performed By: #### B MONOLOGIST, CMP ####[facility] [address] [place], [place] [address]HqDr. Kasia Nath CBC AUTO DIFFon 01-02-2023 BASO # 0.1 103/ul Normal 0.0-0.1 [facility] Comment on above: Performed By: #### P OCGLUC #### [facility] [address] [address] [address] Kasia Nath Basophils/100 WBC (Bld) 0.9 % Normal 0.2-2.0 [facility] Comment on above: Performed By: #### P OCGLUC #### [facility] [address] [address] [address] Kasia Nath EO # 0.2 103/ul Normal 0.0-0.7 [facility] Comment on above: Performed By: #### P OCGLUC #### [facility] [address] [address] [address] Kasia Nath Eosinophils/100 WBC (Bld) 2.3 % Normal 0.9-7.0 [facility] Comment on above: Performed By: #### P OCGLUC #### [facility] [address] [address] [address] Kasia Nath Erythrocyte distribution width (RBC) [Ratio] 13.8 % Normal 11.0-15.0 [facility] Comment on above: Performed By: #### P OCGLUC #### [facility] [address] [address] [address] Kasia Nath Hematocrit (Bld) [Volume fraction] 35.5 % Critically low 36.0-48.0 [facility] Comment on above: Performed By: #### P OCGLUC #### [facility] [address] [address] [address] Kasia Nath Hemoglobin (Bld) [Mass/Vol] 11.6 g/dL Critically low 12.0-16.0 [facility] Comment on above: Performed By: #### P OCGLUC #### [facility] [address] [address] [address] Kasia Nath IG # 0.02 10e3/ul Normal 0.00-0.03 [facility] Comment on above: Performed By: #### P OCGLUC #### [facility] [address] [address] [address] Kasia Nath IG % 0.3 % Normal 0.0-0.5 [facility] Comment on above: Performed By: #### P OCGLUC #### [facility] [address] [address] [address] Kasai Nath LYMPH # 2.0 103/ul Normal 1.2-3.8 [facility] Comment on above: Performed By: #### P OCGLUC #### [facility] [address] [place] [address] Dr. Kasia Nath Lymphocytes/100 WBC (Bld) 24.8 % Normal 20.5-60.0 [facility] Comment on above: Performed By: #### P OCGLUC #### [facility] [address] [address] [address] Kasia Nath MANUAL DIFF REQ NO Normal [facility] Comment on above: Performed By: #### P OCGLUC #### [facility] [address] [address] [address] Kasia Nath MCH (RBC) [Entitic mass] 28.7 pg Normal 26.7-34.0 [facility] Comment on above: Performed By: #### P OCGLUC #### [facility] [address] [address] [address] Kasia Nath MCHC (RBC) [Mass/Vol] 32.7 g/dL Normal 29.9-35.2 [facility] Comment on above: Performed By: #### P OCGLUC #### [facility] [address] [place] [address] Dr. Kasia Nath MCV (RBC) [Entitic vol] 87.9 fL Normal 81.0-99.0 [facility] Comment on above: Performed By: #### P OCGLUC #### [facility] [address] [address] [address] Kasia Nath MONO # 0.8 103/ul Normal 0.3-0.8 [facility] Comment on above: Performed By: #### P OCGLUC #### [facility] [address] [address] [address] Kasia Nath Monocytes/100 WBC (Bld) 9.6 % Normal 1.7-12.0 [facility] Comment on above: Performed By: #### P OCGLUC #### [facility] [address] [address] [address] Kasia Nath NEUT # 5.0 103/ul Normal 1.4-6.5 [facility] Comment on above: Performed By: #### P OCGLUC #### [facility] [address] [address] [address] Kasia Nath Neutrophils/100 WBC (Bld) 62.1 % Normal 43.0-75.0 [facility] Comment on above: Performed By: #### P OCGLUC #### [facility] [address] [address] [address] Kasia Nath Platelet mean volume (Bld) [Entitic vol] 10.7 fL Normal 9.5-13.5 [facility] Comment on above: Performed By: #### P OCGLUC #### [facility] [address] [address] [address] Kasia Nath PLT 204 103/ul Normal 150-450 [facility] Comment on above: Performed By: #### P OCGLUC #### [facility] [address] [address] [address] Kasia Nath RBC 4.04 106/ul Critically low 4.20-5.40 [facility] Comment on above: Performed By: #### P OCGLUC #### [facility] [address] [address] [address] Kasia Nath WBC 8.0 103/ul Normal 4.0-11.0 [facility] Comment on above: Performed By: #### P OCGLUC #### [facility] [address] [address] [address] Kasia Nath GLYCOHEMOGLOBIN A1Con 2022 ADA RECOMMENDATION SEE BELOW Normal [facility] Comment on above: Result Comment: ADA RECOMMENDED LIMIT 4.0 - 6.0 ADA THERAPEUTIC TARGET < 7.0 ACTION SUGGESTED > 7.0 Performed By: #### A 1C ####[facility] [address] [address]Dr. Kasia Nath Glucose [Mass/Vol] 298 mg/dL Normal [facility] Comment on above: Performed By: #### A 1C ####[facility] [address] [address]Dr. Kasia Nath HbA1c (Bld) [Mass fraction] 12.0 % Critically high 4.5-6.2 [facility] Comment on above: Performed By: #### A 1C ####[facility] [address] [place], [place] [address]Dr. Kasia Nath POINT OF CARE GLUCOSEon 12-14 Glucose [Mass/Vol] 227 mg/dL Critically high 74-106 [facility] Comment on above: Performed By: #### C BC #### [facility] [address] [address] [address] Kasia Nath Glucose [Mass/Vol] 214 mg/dL Critically high 74-106 [facility] Comment on above: Performed By: #### C BC #### [facility] [address] [address] [address] Kasia Nath PROF 14(COMP METB)on 023 Albumin [Mass/Vol] 2.6 g/dL Critically low 3.4-5.0 Th [facility] Comment on above: Performed By: #### B MONOLOGIST, CMP ####[facility] [address] [address]DrDoreen Nath Albumin/Globulin [Mass ratio] 0.6 {ratio} Normal [facility] Comment on above: Performed By: #### B MONOLOGIST, CMP ####[facility] [address] [address]Dr. Kasia Nath ALP [Catalytic activity/Vol] 94 U/L Normal 46-116 [facility] Comment on above: Performed By: #### B MONOLOGIST, CMP ####[facility] [address] [place], [place] [address]Dr. Kasia Nath ALT [Catalytic activity/Vol] 16 U/L Normal 14-59 [facility] Comment on above: Performed By: #### B MONOLOGIST, CMP ####[facility] [address] [place], [place] [address]Dr. Kasia Nath Anion gap [Moles/Vol] 10.6 mmol/L Normal [facility] Comment on above: Performed By: #### B MONOLOGIST, CMP ####[facility] [address] [place], [place] [address]Dr. Kasia Nath AST [Catalytic activity/Vol] 15 U/L Normal 15-37 [facility] Comment on above: Performed By: #### B MONOLOGIST, CMP ####[facility] [address] [place], [place] [address]Dr. Kasia Nath Bilirubin [Mass/Vol] 0.8 mg/dL Normal 0.2-1.0 [facility] Comment on above: Performed By: #### B MONOLOGIST, CMP ####[facility] [address] [place], [place] [address]Dr. Kasia Nath Calcium [Mass/Vol] 8.5 mg/dL Normal 8.5-10.1 [facility] Comment on above: Performed By: #### B MONOLOGIST, CMP ####[facility] [address] [place], [place] [address]Dr. Kasia Nath Chloride [Moles/Vol] 102 mmol/L Normal 98-107 [facility] Comment on above: Performed By: #### B MONOLOGIST, CMP ####[facility] [address] [place], [place] [address]Dr. Kasai Nath CO2 [Moles/Vol] 30.2 mmol/L Normal 21.0-32.0 [facility] Comment on above: Performed By: #### B MONOLOGIST, CMP ####[facility] [address] [place] [id number]. Kasia Nath Creatinine [Mass/Vol] 0.94 mg/dL Normal 0.55-1.02 [facility] Comment on above: Performed By: #### B MONOLOGIST, CMP ####[facility] [address] [place] [id number]. Kasia Nath EGFR-AF HUNGARIAN >60 Normal >=60 [facility] Comment on above: Performed By: #### B MONOLOGIST, CMP ####[facility] [address] [place] [id number]. Kasia Nath EGFR-NON AF HUNGARIAN 58 mL/min/1.73m2 Critically low >=60 [facility] Comment on above: Performed By: #### B MONOLOGIST, CMP ####[facility] [address] [place] [address]Dr. Kasia Nath Globulin (S) [Mass/Vol] 4.0 g/dL Normal [facility] Comment on above: Performed By: #### B MONOLOGIST, CMP ####[facility] [address] [place] [id number]. Kasia Nath Glucose [Mass/Vol] 150 mg/dL Critically high 74-106 [facility] Comment on above: Performed By: #### B MONOLOGIST, CMP ####[facility] [address] [place] [id number]. Kasia Nath Potassium [Moles/Vol] 3.8 mmol/L Normal 3.5-5.1 [facility] Comment on above: Performed By: #### B MONOLOGIST, CMP ####[facility] [address] [place] [id number]. Kasia aNth Protein [Mass/Vol] 6.6 g/dL Normal 6.4-8.2 [facility] Comment on above: Performed By: #### B MONOLOGIST, CMP ####[facility] [address] [place] [address]Dr. Kasia Nath Sodium [Moles/Vol] 139 mmol/L Normal 136-145 [facility] Comment on above: Performed By: #### B MONOLOGIST, CMP ####[facility] [address] [place] [id number] Nath Urea nitrogen [Mass/Vol] 24.0 mg/dL Critically high 7.0-18.0 [facility] Comment on above: Performed By: #### B MONOLOGIST, CMP ####[facility] [address] [id number] Nath Urea nitrogen/Creatinine [Mass ratio] 25.5 mg/mg Normal [facility] Comment on above: Performed By: #### B MONOLOGIST, CMP ####[facility] [address] [place] [id number]. Kasia Nath BNPon 01-01-2023 Natriuretic peptide B (Bld) [Mass/Vol] 1419.0 pg/mL Normal <=1,800.0 [facility] Comment on above: Performed By: #### B MONOLOGIST #### [facility] [address] [place] [address] Dr. Kasia Nath CARDIAC EMERY 3-6on 3 CK [Catalytic activity/Vol] 80 U/L Normal 26-192 [facility] Comment on above: Performed By: #### P OCGLUC #### [facility] [address] [place] [address] Dr. Kasia Nath CK.MB [Mass/Vol] 1.85 ng/mL Normal <=3.60 [facility] Comment on above: Performed By: #### P OCGLUC #### [facility] [address] [place] [address] Dr. Kasia Nath HSTROP 13.2 pg/mL Normal 4.0-51.3 [facility] Comment on above: Result Comment: CUT- OFF POINTS HAVE BEEN ESTABLISHED BASED ON THE FOURTH UNIVERSAL DEFINITIONS OF MYOCARDIAL INFARCTION. THE UPPER REFERENCE LIMIT (URL) OF TROPONIN, DEFINED THE 99TH PERCENTILE OF cTnI DISTRIBUTION IN A REFERENCE POPULATION, HAS BEEN CONFIRMED THE DECISION THRESHOLD FOR ME DIAGNOSIS. Performed By: #### P OCGLUC #### [facility] [address] [place] [address] Dr. Kasia Nath CK [Catalytic activity/Vol] 73 U/L Normal 26-192 [facility] Comment on above: Performed By: #### P OCGLUC #### [facility] [address] [address] [address] Kasia Nath CK.MB [Mass/Vol] 1.71 ng/mL Normal <=3.60 [facility] Comment on above: Performed By: #### P OCGLUC #### [facility] [address] [address] [address] Kasia Nath HSTROP 13.6 pg/mL Normal 4.0-51.3 [facility] Comment on above: Result Comment: CUT- OFF POINTS HAVE BEEN ESTABLISHED BASED ON THE FOURTH UNIVERSAL DEFINITIONS OF MYOCARDIAL INFARCTION. THE UPPER REFERENCE LIMIT (URL) OF TROPONIN, DEFINED THE 99TH PERCENTILE OF cTnI DISTRIBUTION IN A REFERENCE POPULATION, HAS BEEN CONFIRMED THE DECISION THRESHOLD FOR ME DIAGNOSIS. Performed By: #### P OCGLUC #### [facility] [address] [place] [address] Dr. Kasia Nath CARDIAC EMERY ADMITon 023 CK [Catalytic activity/Vol] 71 U/L Normal 26-192 [facility] Comment on above: Performed By: #### C BC #### [facility] [address] [place] [address] Dr. Kasia Nath CK.MB [Mass/Vol] 1.69 ng/mL Normal <=3.60 [facility] Comment on above: Performed By: #### C BC #### [facility] [address] [place] [address] Dr. Kasia Nath HSTROP 13.0 pg/mL Normal 4.0-51.3 [facility] Comment on above: Result Comment: CUT- OFF POINTS HAVE BEEN ESTABLISHED BASED ON THE FOURTH UNIVERSAL DEFINITIONS OF MYOCARDIAL INFARCTION. THE UPPER REFERENCE LIMIT (URL) OF TROPONIN, DEFINED THE 99TH PERCENTILE OF cTnI DISTRIBUTION IN A REFERENCE POPULATION, HAS BEEN CONFIRMED THE DECISION THRESHOLD FOR ME DIAGNOSIS. Performed By: #### C BC #### [facility] [address] [address] [address] Kasia Nath GRETTA 75 ng/mL Normal 9-82 [facility] Comment on above: Performed By: #### C BC #### [facility] [address] [place] [address] Dr. Kasia Nath CBC AUTO DIFFon 01-01-2023 BASO # 0.1 103/ul Normal 0.0-0.1 [facility] Comment on above: Performed By: #### C BC #### [facility] [address] [place] [address] Dr. Kasia Nath Basophils/100 WBC (Bld) 1.1 % Normal 0.2-2.0 [facility] Comment on above: Performed By: #### C BC #### [facility] [address] [place] [address] Dr. Kasia Nath EO # 0.2 103/ul Normal 0.0-0.7 [facility] Comment on above: Performed By: #### C BC #### [facility] [address] [place] [address] Dr. Kasia Nath Eosinophils/100 WBC (Bld) 2.9 % Normal 0.9-7.0 [facility] Comment on above: Performed By: #### C BC #### [facility] [address] [place] [address] Dr. Kasia Nath Erythrocyte distribution width (RBC) [Ratio] 13.8 % Normal 11.0-15.0 [facility] Comment on above: Performed By: #### C BC #### [facility] [address] [place] [address] Dr. Kasia Nath Hematocrit (Bld) [Volume fraction] 36.2 % Normal 36.0-48.0 [facility] Comment on above: Performed By: #### C BC #### [facility] [address] [place] [address] Dr. Kasia Nath Hemoglobin (Bld) [Mass/Vol] 12.1 g/dL Normal 12.0-16.0 [facility] Comment on above: Performed By: #### C BC #### [facility] [address] [place] [address] Dr. Kasia Nath IG # 0.02 10e3/ul Normal 0.00-0.03 [facility] Comment on above: Performed By: #### C BC #### [facility] [address] [place] [address] Dr. Kasia Nath IG % 0.3 % Normal 0.0-0.5 [facility] Comment on above: Performed By: #### C BC #### [facility] [address] [place] [address] Dr. Kasia Nath LYMPH # 1.5 103/ul Normal 1.2-3.8 [facility] Comment on above: Performed By: #### C BC #### [facility] [address] [place] [address] Dr. Kasia Nath Lymphocytes/100 WBC (Bld) 19.9 % Critically low 20.5-60.0 [facility] Comment on above: Performed By: #### C BC #### [facility] [address] [place] [address] Dr. Kasia Nath MANUAL DIFF REQ NO Normal [facility] Comment on above: Performed By: #### C BC #### [facility] [address] [place] [address] Dr. Kasia Nath MCH (RBC) [Entitic mass] 29.7 pg Normal 26.7-34.0 [facility] Comment on above: Performed By: #### C BC #### [facility] [address] [place] [address] Dr. Kasia Nath MCHC (RBC) [Mass/Vol] 33.4 g/dL Normal 29.9-35.2 [facility] Comment on above: Performed By: #### C BC #### [facility] [address] [place] [address] Dr. Kasia Nath MCV (RBC) [Entitic vol] 88.9 fL Normal 81.0-99.0 [facility] Comment on above: Performed By: #### C BC #### [facility] [address] [place] [address] Dr. Kasia Nath MONO # 0.6 103/ul Normal 0.3-0.8 [facility] Comment on above: Performed By: #### C BC #### [facility] [address] [place] [address] Dr. Kasia Nath Monocytes/100 WBC (Bld) 8.0 % Normal 1.7-12.0 [facility] Comment on above: Performed By: #### C BC #### [facility] [address] [place] [address] Dr. Kasia Nath NEUT # 5.1 103/ul Normal 1.4-6.5 [facility] Comment on above: Performed By: #### C BC #### [facility] [address] [place] [address] Dr. Kasia Nath Neutrophils/100 WBC (Bld) 67.8 % Normal 43.0-75.0 [facility] Comment on above: Performed By: #### C BC #### [facility] [address] [place] [address] Dr. Kasia Nath Platelet mean volume (Bld) [Entitic vol] 10.4 fL Normal 9.5-13.5 [facility] Comment on above: Performed By: #### C BC #### [facility] [address] [place] [address] Dr. Kasia Nath PLT 200 103/ul Normal 150-450 [facility] Comment on above: Performed By: #### C BC #### [facility] [address] [place] [address] Dr. Kasia Nath RBC 4.07 106/ul Critically low 4.20-5.40 [facility] Comment on above: Performed By: #### C BC #### [facility] [address] [place] [address] Dr. Kasia Nath WBC 7.5 103/ul Normal 4.0-11.0 [facility] Comment on above: Performed By: #### C BC #### [facility] [address] [place] [address] CHEST WO CONon [...] two extremes (Agatston score 101-1000). https://pubs.rsna.org/do i/abs/10.1148/[email or web address] Electronically authenticated by: RENETTA MICHAELS Date: 2023-01-01 14:55 Normal [facility] Covid-19 PCR (CVDTBH)on 12-14 SARS-CoV-2 (COVID-19) RNA FERN+probe Ql (Unsp spec) Not detected Normal NOT DETECTED [facility] Comment on above: Result Comment: [...] for this test is supported by the Residential Insurance Inspector of Health and Human Service's declaration [...] longer be used). Performed By: #### [facility] #### [facility] [address] [place] [address] Dr. Kasia Nath ECHO LIMITED STUDYon 023 ECHO LIMITED STUDY Patient: SAIMA CALL Exam Date: 01/01/2023 : 1945 Gender:F Ordering : LD GUERRERO . Admission #: [id number] Family : Order #: [id number] CLICK HERE TO VIEW EXAM ECHOCARDIOGRAM REPORT [...] Kaplan M.D. on 01/01/2023 at 13:19 Normal [facility] GLYCOHEMOGLOBIN A1Con 2022 ADA RECOMMENDATION SEE BELOW Normal [facility] Comment on above: Result Comment: ADA RECOMMENDED LIMIT 4.0 - 6.0 ADA THERAPEUTIC TARGET < 7.0 ACTION SUGGESTED > 7.0 Performed By: #### P OCGLUC #### [facility] [address] [address] [address] Kasia Nath Glucose [Mass/Vol] 318 mg/dL Normal [facility] Comment on above: Performed By: #### P OCGLUC #### [facility] [address] [address] [address] Kasia Nath HbA1c (Bld) [Mass fraction] 12.7 % Critically high 4.5-6.2 [facility] Comment on above: Performed By: #### P OCGLUC #### [facility] [address] [address] [address] Kasia Nath POINT OF CARE GLUCOSEon 12-14 Glucose [Mass/Vol] 162 mg/dL Critically high -106 [facility] Comment on above: Performed By: #### P OCGLUC ####[facility] [address] [address]Dr. Kasia Nath Glucose [Mass/Vol] 213 mg/dL Critically high -106 [facility] Comment on above: Performed By: #### P OCGLUC ####[facility] [address] [place] [address]Dr. Kasia Nath Glucose [Mass/Vol] 248 mg/dL Critically high -106 [facility] Comment on above: Performed By: #### P OCGLUC #### [facility] [address] [address] [address] Kasia Nath PROF CHEM 8 (BAS METB)on Anion gap [Moles/Vol] 11.8 mmol/L Normal [facility] Comment on above: Performed By: #### C BC #### [facility] [address] [address] [address] Kasia Nath Calcium [Mass/Vol] 8.4 mg/dL Critically low 8.5-10.1 [facility] Comment on above: Performed By: #### C BC #### [facility] [address] [address] [address] Kasia Nath Chloride [Moles/Vol] 102 mmol/L Normal 98-107 [facility] Comment on above: Performed By: #### C BC #### [facility] [address] [place] [address] Dr. Kasia Nath CO2 [Moles/Vol] 28.4 mmol/L Normal 21.0-32.0 [facility] Comment on above: Performed By: #### C BC #### [facility] [address] [place] [address] Dr. Kasia Nath Creatinine [Mass/Vol] 1.09 mg/dL Critically high 0.55-1.02 [facility] Comment on above: Performed By: #### C BC #### [facility] [address] [place] [address] Dr. Kasia Nath EGFR-AF HUNGARIAN 59 mL/min/1.73m2 Critically low >=60 [facility] Comment on above: Performed By: #### C BC #### [facility] [address] [place] [address] Dr. Kasia Nath EGFR-NON AF HUNGARIAN 49 mL/min/1.73m2 Critically low >=60 [facility] Comment on above: Performed By: #### C BC #### [facility] [address] [place] [address] Dr. Kasia Nath Glucose [Mass/Vol] 247 mg/dL Critically high 74-106 [facility] Comment on above: Performed By: #### C BC #### [facility] [address] [place] [address] Dr. Kasia Nath Potassium [Moles/Vol] 4.2 mmol/L Normal 3.5-5.1 [facility] Comment on above: Performed By: #### C BC #### [facility] [address] [address] [address] Kasia Nath Sodium [Moles/Vol] 138 mmol/L Normal 136-145 [facility] Comment on above: Performed By: #### C BC #### [facility] [address] [address] [address] Kasia Nath Urea nitrogen [Mass/Vol] 28.0 mg/dL Critically high 7.0-18.0 [facility] Comment on above: Performed By: #### C BC #### [facility] [address] [address] [address] Kasia Nath Urea nitrogen/Creatinine [Mass ratio] 25.7 mg/mg Normal [facility] Comment on above: Performed By: #### C BC #### [facility] [address] [place] [address] Dr. Kasia Nath XR CHEST 1 Von [...] by: Miranda ALVAREZ Date: 2023-01-01 05:38 Normal [facility] ECHOCARDIO M/2D COMPLETEon 1 11-15-2021 ECHOCARDIO M/2D COMPLETE Patient: JOE CALL Exam Date: 09/15/2022 : 1945 Gender:F Ordering : YAMEL MCCRACKEN [facility] Admission #: [id number] Family : DR SHANTEL STEVEN M.D. Order #: [id number] CLICK HERE TO VIEW EXAM ECHOCARDIOGRAM REPORT [...] M.D. on 09/15/2022 at 18:17 Normal [facility] GI PANEL (PCR)on 05-02-2022 Adenovirus F 40/41 Not detected Normal NOT DETECTED [facility] Comment on above: Performed By: #### P OCGLUC #### [facility] [address] [place] [address] Dr. Kasia Nath Astrovirus Not detected Normal NOT DETECTED [facility] Comment on above: Performed By: #### P OCGLUC #### [facility] [address] [place] [address] Dr. Kasia Nath C. Diff toxin A/B Not detected Normal NOT DETECTED [facility] Comment on above: Performed By: #### P OCGLUC #### [facility] [address] [place] [address] Dr. Kasia Nath Campylobacter Not detected Normal NOT DETECTED [facility] Comment on above: Performed By: #### P OCGLUC #### [facility] [address] [address] [address] Kasia Naht Cryptosporidium Not detected Normal NOT DETECTED [facility] Comment on above: Performed By: #### P OCGLUC #### [facility] [address] [address] [address] Kasia Nath Cyclos. Cayetanensis Not detected Normal NOT DETECTED [facility] Comment on above: Performed By: #### P OCGLUC #### [facility] [address] [address] [address] Kasia Nath E. Coli O157 Not Applicable Normal Not Applicable [facility] Comment on above: Performed By: #### P OCGLUC #### [facility] [address] [place] [address] Dr. Kasia Nath E. histolytica Not detected Normal NOT DETECTED [facility] Comment on above: Performed By: #### P OCGLUC #### [facility] [address] [place] [address] Dr. Kasia Nath EAEC Not detected Normal NOT DETECTED [facility] Comment on above: Performed By: #### P OCGLUC #### [facility] [address] [place] [address] Dr. Kasia Nath EIEC Not detected Normal NOT DETECTED [facility] Comment on above: Performed By: #### P OCGLUC #### [facility] [address] [place] [address] Dr. Kasia Nath EPEC Detected Abnormal NOT DETECTED [facility] Comment on above: Performed By: #### P OCGLUC #### [facility] [address] [place] [address] Dr. Kasia Nath ETEC Not detected Normal NOT DETECTED [facility] Comment on above: Performed By: #### P OCGLUC #### [facility] [address] [place] [address] Dr. Kasia Nath G. Lamblia Not detected Normal NOT DETECTED [facility] Comment on above: Performed By: #### P OCGLUC #### [facility] [address] [place] [address] Dr. Kasia Nath GIPANEL CONTROLS PASSED Normal [facility] Comment on above: Performed By: #### P OCGLUC #### [facility] [address] [address] [address] Kasia FRAIRE HEADER GI PANEL BACTERIA Normal [facility] Comment on above: Performed By: #### P OCGLUC #### [facility] [address] [address] [address] Kasia GE ECOLI GI PANEL DIARRHEAGEN IC E.COLI / SHIGELLA Normal [facility] Comment on above: Performed By: #### P OCGLUC #### [facility] [address] [address] [address] Kasia GE INFO SEE BELOW [facility] Comment on above: Result Comment: EAEC - Enteroaggregative E. Coli EPEC- Enteropathogenic E. Coli ETEC- Enterotoxigenic E. Coli lt/st STEC- Shigella-like toxin-producing E. Coli stx1/stx2 EIEC- Shigella/Enteroinvasive E. Coli Performed By: #### P OCGLUC #### [facility] [address] [address] [address] Kasia GE PARASITES GI PANEL PARASITES Normal [facility] Comment on above: Performed By: #### P OCGLUC #### [facility] [address] [address] [address] Kasia GE VIRUS GI PANEL VIRUSES Normal [facility] Comment on above: Performed By: #### P OCGLUC #### [facility] [address] [address] [address] Kasia Nath Norovirus GI/GII Not detected Normal NOT DETECTED The [facility] Comment on above: Performed By: #### P OCGLUC #### [facility] [address] [address] [address] Kasia Garland. Shigelloides Not detected Normal NOT DETECTED [facility] Comment on above: Performed By: #### P OCGLUC #### [facility] [address] [address] [address] Kasia Nath Rotavirus A Not detected Normal NOT DETECTED [facility] Comment on above: Performed By: #### P OCGLUC #### [facility] [address] [address] [address] Kasia Nath Salmonella Not detected Normal NOT DETECTED [facility] Comment on above: Performed By: #### P OCGLUC #### [facility] [address] [address] [address] Kasia Nath Sapovirus Not detected Normal NOT DETECTED [facility] Comment on above: Performed By: #### P OCGLUC #### [facility] [address] [address] [address] Kasia Nath STEC Not detected Normal NOT DETECTED [facility] Comment on above: Performed By: #### P OCGLUC #### [facility] [address] [address] [address] Kasia Nath Vibrio Not detected Normal NOT DETECTED [facility] Comment on above: Performed By: #### P OCGLUC #### [facility] [address] [address] [address] Kasia Nath Vibrio Cholera Not detected Normal NOT DETECTED [facility] Comment on above: Performed By: #### P OCGLUC #### [facility] [address] [address] [address] Kasia Nath Y. Enterocolitica Not detected Normal NOT DETECTED [facility] Comment on above: Performed By: #### P OCGLUC #### [facility] [address] [address] [address] Kasia Nath OCC BLD IMMUNO SCREENon -2 OCCULT BLOOD Negative Normal NEGATIVE [facility] Comment on above: Performed By: #### C BC #### [facility] [address] [address] [address] Kasia Nath XR knee BI 4Von 08-25-2021 XR knee BI 4V [facility] [employer] Other XR knee BI 4V [facility] [employer] Other XR knee BI 4V [address] [place] [address] [employer] Other XR knee BI 4V [address] [facility] Other XR knee BI 4V XRay Report [place] [employer] Other XR knee BI 4V Signed [facility] Other XR knee BI 4V Patient: Joe Call MR#: [id number] [facility] Other XR knee BI 4V 0 [facility] Other XR knee BI 4V : 1945 Acct:[id number] [facility] Other XR knee BI 4V Age/Sex: 76 / F ADM Date: 08/25/21 [facility] Other XR knee BI 4V Loc: [facility] Room: Type : [facility] Other XR knee BI 4V Attending Dr: Akbar Cui II, MD [facility] Other XR knee BI 4V Ordering Provider: Akbar Cui MD [facility] Other XR knee BI 4V Date of Service: 08/25/21 [facility] Other XR knee BI 4V XR/XR knee BI 4V: Pain in right knee;Pain in left knee [facility] Other XR knee BI 4V Copies to: Akbar Cui MD [facility] Other XR knee BI 4V XR knee BI 4V 2020 1:32 PM [facility] Other XR knee BI 4V SIGNS AND SYMPTOMS: Bilateral knee pain with decreased range of motion, weakness [facility] Other XR knee BI 4V PROTOCOL: Frontal, lateral, and sunrise views of the bilateral knees [facility] Other XR knee BI 4V COMPARISON: None [facility] Other XR knee BI 4V FINDINGS: [facility] Other XR knee BI 4V There is mild narrow ing of the medial weightbearing joint spaces. There is mild patellofemoral [facility] Other XR knee BI 4V joint space loss. Th ere is spurring of the poles of the patella bilaterally. There is mild lateral [facility] Other XR knee BI 4V patellar subluxation bilaterally. There is no evidence of acute displaced fracture. Well-corticated [facility] Other XR knee BI 4V ossific structures o r separate from the right medial weightbearing joint space. This may represent a [facility] Other XR knee BI 4V calcified loose bodies. [facility] Other XR knee BI 4V X R/XR knee BI 4V [facility] Other XR knee BI 4V IMPRESSION: [employer] Other XR knee BI 4V Degenerative changes are noted are noted bilaterally, as above. [facility] Other XR knee BI 4V Well-corticated ossi fic structures or separate from the right medial weightbearing joint space. This [facility] Other XR knee BI 4V may represent a calcified loose bodies. [facility] Other XR knee BI 4V No acute displaced fracture. [facility] Other XR knee BI 4V There is mild latera l subluxation of the patella within the patellofemoral joint space bilaterally. [facility] Other XR knee BI 4V Impression dictated by: Emery Lobo M.D.08/25/2021 2:51 PM [facility] Other XR knee BI 4V Dictation Location: [address] [address] [facility] Other XR knee BI 4V Transcribed By: RAFAEL 08/25/21 1451 [facility] Other XR knee BI 4V Dictated By: Emery Lobo II, MD 08/25/21 1447 [facility] Other XR knee BI 4V Signed By: [facility] Other XR knee BI 4V 08/25/21 1451 [facility] [facility] [employer] Other XR pelvis 1-2Von 08-25-2021 XR pelvis 1-2V XR/XR pelvis 1-2V: Pain in right knee;Pain in left knee [facility] Other XR pelvis 1-2V XR pelvis 1-2V 08/25/2021 1:32 PM [facility] Other XR pelvis 1-2V SIGNS AND SYMPTOMS: Bilateral generalized knee pain, limited range of motion with weakness [facility] Other XR pelvis 1-2V PROTOCOL: Frontal radiograph of the pelvis [facility] Other XR pelvis 1-2V There is mild narrow ing of the weightbearing joint spaces. Mild degenerative changes are noted in [facility] Other XR pelvis 1-2V the symphysis pubis. There is no evidence of fracture or dislocation. Vascular calcifications are [facility] Other XR pelvis 1-2V present in the pelvis. [facility] Other XR pelvis 1-2V X R/XR pelvis 1-2V [facility] Other XR pelvis 1-2V No fracture or dislocation. [facility] Other XR pelvis 1-2V Mild degenerative changes are noted in the joint space of the hips. [facility] Other XR pelvis 1-2V Impression dictated by: Emery Lobo M.D.08/25/2021 2:54 PM [facility] Other XR pelvis 1-2V Transcribed By: PWS 08/25/[address] [place] [address] [facility] Other XR pelvis 1-2V Dictated By: Emery Lobo II, MD 08/25/[address] [place] [address] [facility] Other XR pelvis 1-2V 08/25/[address] [place] [address] [employer] Other Vital Signs Date Time Vital Sign [...] [place] 12-09-2024 13:33-0500 Respiratory rate 14 /min Jorge Luis Tupa DO Work Phone: [...] Body mass index (BMI) [Ratio] 41.1 kg/m2 Jorg Eluis Tupa DO Work Phone: [facility] [...] 165.1 cm Christel Chacon MD Work Phone: [facility] 10-01-2024 09:51-0500 Body mass index (BMI) [Ratio] 42.27 kg/m2 Christel Chacon MD Work Phone: [facility] 10-01-2024 09:51-0500 Body weight 115.21 kg Christel Chacon MD Work Phone: [facility] 10-01-2024 09:51-0500 Diastolic blood pressure 110 mm[Hg] Christel Chacon MD Work Phone: [facility] 10-01-2024 09:51-0500 Systolic blood pressure 138 mm[Hg] Christel Chacon MD Work Phone: [facility] 08-07-2024 10:04-0400 Body height 165.1 cm [...] 165.1 cm Christel Chacon MD Work Phone: [facility] 07-22-2024 13:15-0400 Body mass index (BMI) [Ratio] 42.6 kg/m2 Christel Chacon MD Work Phone: [facility] 07-22-2024 13:15-0400 Body weight 116.12 kg Christel Chacon MD Work Phone: [facility] 07-22-2024 13:15-0400 Diastolic blood pressure 82 mm[Hg] Christel Chacon MD Work Phone: [facility] 07-22-2024 13:15-0400 Systolic blood pressure 130 mm[Hg] Christel Chacon MD Work Phone: [facility] 07-16-2024 10:20-0400 Body height 165.1 cm [...] 13:40-0400 Body height 165.1 cm Lizett Orville MONOLOGIST Work Phone: [facility] 07-10-2024 13:40-0400 Body mass index (BMI) [Ratio] 42.43 kg/m2 Lizett Gillmor MONOLOGIST Work Phone: [facility] 07-10-2024 13:40-0400 Body weight 115.67 kg Lizett Gillmor MONOLOGIST Work Phone: [facility] 07-10-2024 13:40-0400 Diastolic blood pressure 86 mm[Hg] Lizett Gillmor MONOLOGIST Work Phone: [facility] 07-10-2024 13:40-0400 Systolic blood pressure 132 mm[Hg] Lizett Hoodteo DUNN Work Phone: [facility] 07-07-2024 11:41-0400 Body height 165.1 cm [...] [place] 02-15-2024 14:18-0400 Body height 165.1 cm [facility] 02-15-2024 14:18-0400 Body mass index (BMI) [Ratio] 38.6 kg/m2 [facility] 02-15-2024 14:18-0400 Body weight 105.23 kg [facility] 02-15-2024 14:18-0400 Diastolic blood pressure 66 mm[Hg] [facility] 02-15-2024 14:18-0400 Heart rate 55 /min [facility] 02-15-2024 14:18-0400 Systolic blood pressure 114 mm[Hg] [facility] 01-18-2024 10:23-0500 Body height 165.1 cm [facility] 01-18-2024 10:23-0500 Body mass index (BMI) [Ratio] 43.2 kg/m2 [facility] 01-18-2024 10:23-0500 Body weight 117.93 kg [facility] 01-18-2024 10:23-0500 Diastolic blood pressure 70 mm[Hg] [facility] 01-18-2024 10:23-0500 Heart rate 98 /min [facility] 01-18-2024 10:23-0500 SaO2% (BldA) [Mass fraction] 65 % [facility] 01-18-2024 10:23-0500 Systolic blood pressure 110 mm[Hg] [facility] 10-23-2023 16:00-0500 Body height 165.1 cm Jaleesa [employer] Other [employer] [employer] Other 10-23-2023 16:00-0500 Body mass index (BMI) [Ratio] 44.63 kg/m2 [employer] Other [facility] Other 10-23-2023 16:00-0500 Body temperature 96.8 [degF] Jaleesa [employer] Other [facility] Other 10-23-2023 16:00-0500 Body weight 121.66 kg Jaleesa [employer] Other [facility] Other 10-23-2023 16:00-0500 Diastolic blood pressure 60 mm[Hg] [employer] Vanessa Other [facility] Other 10-23-2023 16:00-0500 Respiratory rate 18 /min Jaleesa Vanessa Other [facility] Other 10-23-2023 16:00-0500 SaO2% (BldA) [Mass fraction] 99 % Jaleesa Vanessa Other [facility] Other 10-23-2023 16:00-0500 Systolic blood pressure 124 mm[Hg] Jaleesa Vanessa Other [facility] Other 10-18-2023 13:45-0500 Body height 165.1 cm Shantel Steven Other [facility] Other 10-18-2023 13:45-0500 Body mass index (BMI) [Ratio] 44.86 kg/m2 Shantel Steven Other [facility] Other 10-18-2023 13:45-0500 Body temperature 97.3 [degF] Shantel Steven Other [facility] Other 10-18-2023 13:45-0500 Body weight 122.29 kg Shantel Steven Other [facility] Other 10-18-2023 13:45-0500 Diastolic blood pressure 84 mm[Hg] Shantel Steven Other [facility] Other 10-18-2023 13:45-0500 SaO2% (BldA) [Mass fraction] 97 % Shantel Steven Other [facility] Other 10-18-2023 13:45-0500 Systolic blood pressure 132 mm[Hg] Shantel Steven Other [facility] Other 09-04-2023 14:00-0400 Body height 165.1 cm Shantel Steven Other [facility] Other 09-04-2023 14:00-0400 Body mass index (BMI) [Ratio] 43.06 kg/m2 Shantel Steven Other [facility] Other 09-04-2023 14:00-0400 Body weight 117.39 kg Shantel Steven Other [facility] Other 09-04-2023 14:00-0400 Diastolic blood pressure 69 mm[Hg] Shantel Steven Other [facility] Other 09-04-2023 14:00-0400 Systolic blood pressure 127 mm[Hg] Shantel Steven Other [facility] Other 07-17-2023 10:00-0400 Body height 165.1 cm Shantel Steven Other [facility] Other 07-17-2023 10:00-0400 Body mass index (BMI) [Ratio] 43.03 kg/m2 Shantel Steven Other [facility] Other 07-17-2023 10:00-0400 Body weight 117.3 kg Shantel Steven Other [facility] Other 07-17-2023 10:00-0400 Diastolic blood pressure 76 mm[Hg] Shantel Steven Other [facility] Other 07-17-2023 10:00-0400 Systolic blood pressure 164 mm[Hg] Shantel Steven Other [facility] Other 04-30-2023 14:30-0400 Body height 165.1 cm Shantel Steven Other [facility] Other 04-30-2023 14:30-0400 Body mass index (BMI) [Ratio] 43.43 kg/m2 Shantel Steven Other [facility] Other 04-30-2023 14:30-0400 Body weight 118.39 kg Shantel Steven Other [facility] Other 04-30-2023 14:30-0400 Diastolic blood pressure 75 mm[Hg] Shantel Steven Other [facility] Other 04-30-2023 14:30-0400 Systolic blood pressure 135 mm[Hg] Shantel Steven Other [facility] Other 03-09-2023 12:15-0400 Body height 165.1 cm Shantel Steven Other [facility] Other 03-09-2023 12:15-0400 Body mass index (BMI) [Ratio] 43.59 kg/m2 Shantel Steven Other [facility] Other 03-09-2023 12:15-0400 Body weight 118.84 kg Shantel Steven Other [facility] Other 03-09-2023 12:15-0400 Diastolic blood pressure 82 mm[Hg] Shantel Steven Other [facility] Other 03-09-2023 12:15-0400 SaO2% (BldA) [Mass fraction] 97 % Shantel Steven Other [facility] Other 03-09-2023 12:15-0400 Systolic blood pressure 130 mm[Hg] Shantel Steven Other [facility] Other 02-20-2023 10:00-0400 Body height 165.1 cm Shantel Steven Other [facility] Other 02-20-2023 10:00-0400 Body mass index (BMI) [Ratio] 41.93 kg/m2 Shantel Steven Other [facility] Other 02-20-2023 10:00-0400 Body weight 114.31 kg Shantel Steven Other [facility] Other 02-20-2023 10:00-0400 Diastolic blood pressure 84 mm[Hg] Shantel Steven Other [facility] Other 02-20-2023 10:00-0400 Systolic blood pressure 132 mm[Hg] Shantel Steven Other [facility] Other 08-04-2022 13:33-0400 Blood Pressure Location [facility] 08-04-2022 13:33-0400 Diastolic blood pressure 88 mm[Hg] [facility] 08-04-2022 13:33-0400 Heart rate 76 /min [facility] 08-04-2022 13:33-0400 Respiratory rate 16 /min [facility] 08-04-2022 13:33-0400 Systolic blood pressure 130 mm[Hg] [facility] 08-25-2021 14:30-0400 Body height 165.1 cm Akbar Cui II Other [facility] Other 08-25-2021 14:30-0400 Body mass index (BMI) [Ratio] 43.26 kg/m2 Akbar Cui II Other [facility] [employer] Other 08-25-2021 14:30-0400 Body weight 117.94 kg Akbar Cui II Other [facility] [employer] Other Encounters Encounter Date Encounter Type Care Provider Facility Start: 01-21-2025 End: 01-21-2025 ambulatory Shantel Steven MD Work Phone: [facility] Work Phone: Start: 01-21-2025 End: 01-21-2025 Patient encounter procedure Shantel Steven MD Work Phone: [facility] Work Phone: Start: 01-14-2025 End: 01-14-2025 ambulatory Shantel Steven MD Work Phone: [facility] Work Phone: Start: 01-14-2025 End: 01-14-2025 Patient encounter procedure Shantel Steven MD Work Phone: [facility] Work Phone: Start: 01-07-2025 End: 01-07-2025 Telephone encounter Christel Chacon MD Work Phone: [facility] Comment on above: referral to Dr Estrada baer Start: 01-06-2025 End: 01-06-2025 Patient encounter procedure Shantel Steven MD Work Phone: [facility] Work Phone: Start: 01-06-2025 End: 01-06-2025 Telephone encounter Christel Chacon MD Work Phone: [facility] Comment on above: sleep study appt Start: 12-26-2024 End: 12-26-2024 ambulatory Jorge Luis Zavala DO Work Phone: [facility] Work Phone: Start: 12-26-2024 End: 12-26-2024 Patient encounter procedure Jorge Luis Zavala DO Work Phone: [facility] Work Phone: Start: 12-18-2024 End: 12-18-2024 ambulatory FRANCHESCA E STU Facility:[facility] Start: 12-18-2024 End: 12-18-2024 Patient encounter procedure FRANCHESCA Alvarado STU [facility] Start: 12-09-2024 End: 12-09-2024 Patient encounter procedure Jorge Luis Zavala DO Work Phone: [facility] Work Phone: Start: 12-08-2024 Non-patient / Non-visit Oni k Tupa DO Work Phone: [facility] Work Phone: Start: 12-08-2024 End: 12-08-2024 ambulatory FRANCHESCA Jenny STU Facility:[facility] Start: 12-08-2024 End: 12-08-2024 Patient encounter procedure FRANCHESCA PERAZA [facility] Start: 12-04-2024 Non-patient / Non-visit Oni k Tupa DO Work Phone: [facility] Work Phone: Start: 12-04-2024 Non-patient / Non-visit Oni k Tupa DO Work Phone: [facility] Work Phone: Start: 12-02-2024 End: 12-02-2024 ambulatory [facility] Start: 11-13-2024 End: 11-13-2024 ambulatory FRANCHESCA Jenny PERAZA Facility:[facility] Start: 11-13-2024 End: 11-13-2024 Patient encounter procedure FRANCHESCA PERAZA [facility] Start: 11-11-2024 End: 11-11-2024 Patient encounter procedure Jorge Luis Camargopa DO Work Phone: [facility] Work Phone: Start: 11-10-2024 Non-patient / Non-visit Oni miranda Tupa DO Work Phone: [facility] Work Phone: Start: 11-06-2024 ambulatory FRANCHESCA Jenny PERAZA [facility]ili ty[facility] Start: 11-04-2024 End: 11-04-2024 ambulatory FRANCHESCA Jenny PERAZA Facility:[facility] Start: 11-04-2024 End: 11-04-2024 Patient encounter procedure FRANCHESCA PERAZA [facility] Start: 11-03-2024 End: 11-03-2024 Patient encounter procedure Jorge Luis Zavala DO Work Phone: [facility] Work Phone: Start: 10-31-2024 ambulatory [facility] Start: 10-25-2024 End: 10-25-2024 Emergency department patient visit Daniele Jane Facility:[facility] Start: 10-24-2024 Non-patient / Non-visit Oni k Tupa DO Work Phone: [facility] Work Phone: Start: 10-22-2024 End: 10-22-2024 Emergency department patient visit Zhang Norwood Facility:[facility] Start: 10-21-2024 Non-patient / Non-visit Onipamela Camargopa DO Work Phone: [facility] Work Phone: Start: 10-17-2024 Non-patient / Non-visit Onipamela Camargopa DO Work Phone: [facility] Work Phone: Start: 10-17-2024 Non-patient / Non-visit Oni k Tupa DO Work Phone: [facility] Work Phone: Start: 10-16-2024 Non-patient / Non-visit Onipamela Camargopa DO Work Phone: [facility] Work Phone: Start: 10-16-2024 End: 10-20-2024 Evaluation and management of inpatient Kavin Escobar Facility:[facility] Start: 10-08-2024 End: 10-08-2024 ambulatory [facility] Start: 10-01-2024 End: 10-01-2024 Juliette Chacon [...] Non-visit Oni k Tupa DO Work Phone: [facility] Work Phone: Start: 09-26-2024 End: 09-30-2024 Telephone encounter Christel Chacon MD Work Phone: [facility] Start: 09-03-2024 ambulatory [facility] Start: 08-20-2024 End: 08-20-2024 ambulatory [facility] Start: 08-07-2024 End: 08-07-2024 ambulatory MD Shantel Steven Work Phone: [facility] Work Phone: Start: 08-07-2024 End: 08-07-2024 Patient encounter procedure MD Shantel Steven Work Phone: [facility] Work Phone: Start: 07-30-2024 Non-patient / Non-visit MD Alessia Steven Work Phone: [facility] Work Phone: Start: 07-25-2024 Non-patient / Non-visit MD Alessia Steven Work Phone: [facility] Work Phone: Start: 07-24-2024 Non-patient / Non-visit MD Alessia Steven Work Phone: [facility] Work Phone: Start: 07-22-2024 [...] encounter procedure MD Shantel Steven Work Phone: [facility] Work Phone: Start: 07-17-2024 End: 07-17-2024 ambulatory MD Shantel Steven Work Phone: [facility] Work Phone: Start: 07-17-2024 End: 07-17-2024 Departed Referred MD Shantel Steven Work Phone: [facility] [place] Work Phone: Start: 07-17-2024 End: 07-17-2024 MD Shantel Steven Work Phone: [facility] Work Phone: Start: 07-16-2024 End: 07-16-2024 ambulatory MD Shantel Steven Work Phone: [facility] Work Phone: Start: 07-16-2024 End: 07-16-2024 Patient encounter procedure MD Shantel Steven Work Phone: [facility] Work Phone: Start: 07-16-2024 End: 07-16-2024 MD Shantel Steven Work Phone: [facility] Work Phone: Start: 07-15-2024 End: 07-15-2024 Non-patient / Non-visit MD Shantel Steven Work Phone: [facility] Work Phone: Start: 07-15-2024 Non-patient / Non-visit MD Alessia Steven Work Phone: [facility] Work Phone: Start: 07-15-2024 MD Shantel Bajwa n Work Phone: [facility] Work Phone: Start: 07-14-2024 Non-patient / Non-visit MD Alessia Steven Work Phone: [facility] Work Phone: Start: 07-14-2024 MD Shantel Bajwa n Work Phone: [facility] Work Phone: Start: 07-10-2024 End: 07-10-2024 Bamboo flowsheet Lizett Salazarmor MONOLOGIST Work Phone: [employer] [facility] Start: 07-10-2024 End: 07-10-2024 Bamboo flowsheet Lizett Mariemor MONOLOGIST Work Phone: [employer] [facility] Start: 07-10-2024 End: 07-10-2024 Office outpatient visit 25 minutes Lizett Mariemor MONOLOGIST Work Phone: [employer] [facility] Comment on above: Essential tremor (Pr imary Dx); Diabetic polyneuropathy associated with type 2 diabetes mellitus ([facility]/HCC); Balance disorder; Sensory ataxia; Debility; Weakness; Paresthesias Start: 07-10-2024 End: 07-10-2024 ambulatory LIZETT GILLMOR Not Available Start: 07-07-2024 End: 07-07-2024 ambulatory MD Shantel Steven Work Phone: [facility] Work Phone: Start: 07-07-2024 End: 07-07-2024 Patient encounter procedure MD Shantel Steven Work Phone: [facility] Work Phone: Start: 07-07-2024 End: 07-07-2024 MD Shantel Steven Work Phone: [facility] Work Phone: Start: 06-25-2024 ambulatory MD Shantel gray Work Phone: [facility] Work Phone: Start: 06-25-2024 Non-patient / Non-visit MD Alessia Steven Work Phone: [facility] Work Phone: Start: 06-25-2024 MD Shantel painting Work Phone: [facility] Work Phone: Start: 06-24-2024 Non-patient / Non-visit MD Alessia Steven Work Phone: [facility] Work Phone: Start: 06-24-2024 MD Shantel painting Work Phone: [facility] Work Phone: Start: 06-18-2024 End: 06-18-2024 ambulatory [facility] Start: 06-16-2024 End: 06-16-2024 ambulatory MD Shantel Steven Work Phone: [facility] Work Phone: Start: 06-16-2024 End: 06-16-2024 Patient encounter procedure MD Shantel Steven Work Phone: [facility] Work Phone: Start: 06-16-2024 End: 06-16-2024 MD Shantel Steven Work Phone: [facility] Work Phone: Start: 06-10-2024 Non-patient / Non-visit MD Alessia Steven Work Phone: [facility] Work Phone: Start: 06-10-2024 MD Shantel painting Work Phone: [facility] Work Phone: Start: 06-09-2024 Non-patient / Non-visit MD Alessia Steven Work Phone: [facility] Work Phone: Start: 06-09-2024 MD Shantel painting Work Phone: [facility] Work Phone: Start: 06-05-2024 End: 06-05-2024 ambulatory MD Shantel Steven Work Phone: [facility] Work Phone: Start: 06-05-2024 End: 06-05-2024 Patient encounter procedure MD Shantel Steven Work Phone: [facility] Physician [facility] [place] Work Phone: Start: 06-05-2024 End: 06-05-2024 MD Shantel Steven Work Phone: [facility] Physician [facility] [place] Work Phone: Start: 06-01-2024 Non-patient / Non-visit MD Alessia Steven Work Phone: [facility] Work Phone: Start: 06-01-2024 MD Shantel painting Work Phone: [facility] Work Phone: Start: 05-26-2024 Non-patient / Non-visit MD Alessia Steven Work Phone: [facility] Work Phone: Start: 05-26-2024 MD Shantel painting Work Phone: [facility] Work Phone: Start: 05-22-2024 End: 05-22-2024 Emergency department patient visit MD Shantel Steven Work Phone: [facility] Work Phone: Start: 05-22-2024 End: 05-22-2024 MD Shantel Steven Work Phone: [facility] Work Phone: Start: 05-20-2024 Non-patient / Non-visit MD Alessia Steven Work Phone: [facility] Physician [facility] Work Phone: Start: 05-20-2024 MD Shantel painting Work Phone: [facility] Work Phone: Start: 05-20-2024 End: 05-20-2024 ambulatory [facility] Start: 05-19-2024 End: 05-19-2024 ambulatory MD Shantel Steven Work Phone: [facility] Work Phone: Start: 05-19-2024 End: 05-19-2024 Patient encounter procedure MD Shantel Steven Work Phone: [facility] Physician [facility] Work Phone: Start: 05-19-2024 End: 05-19-2024 MD Shantel Steven Work Phone: [facility] Work Phone: Start: 05-07-2024 End: 05-07-2024 ambulatory MD Shantel Steven Work Phone: [facility] Work Phone: Start: 05-07-2024 End: 05-07-2024 Patient encounter procedure MD Shantel Steven Work Phone: [facility] Work Phone: Start: 05-07-2024 End: 05-07-2024 MD Shantel Steven Work Phone: [facility] Work Phone: Start: 05-06-2024 Non-patient / Non-visit MD Alessia Steven Work Phone: [facility] Work Phone: Start: 05-06-2024 MD Shantel painting Work Phone: [facility] Work Phone: Start: 05-05-2024 Non-patient / Non-visit MD Alessia Steven Work Phone: [facility] Work Phone: Start: 05-05-2024 MD Shantel painting Work Phone: [facility] Work Phone: Start: 05-04-2024 End: 05-06-2024 Non-patient / Non-visit MD Shantel Steven Work Phone: [facility] Work Phone: Start: 05-04-2024 End: 05-06-2024 MD Shantel Steven Work Phone: [facility] Work Phone: Start: 05-04-2024 Non-patient / Non-visit MD Alessia Steven Work Phone: [facility] Work Phone: Start: 05-04-2024 MD Shantel painting Work Phone: [facility] Work Phone: Start: 05-02-2024 Non-patient / Non-visit MD Alessia Steven Work Phone: [facility] Work Phone: Start: 05-02-2024 MD Shantel painting Work Phone: [facility] Work Phone: Start: 05-01-2024 Non-patient / Non-visit MD Alessia Steven Work Phone: [facility] Work Phone: Start: 05-01-2024 MD Shantel painting Work Phone: [facility] Work Phone: Start: 04-30-2024 Non-patient / Non-visit MD Alessia Steven Work Phone: [facility] Work Phone: Start: 04-30-2024 MD Shantel painting Work Phone: [facility] Work Phone: Start: 04-30-2024 Non-patient / Non-visit MD Alessia Steven Work Phone: [facility] Work Phone: Start: 04-30-2024 MD Shantel painting Work Phone: [facility] Work Phone: Start: 04-29-2024 End: 04-29-2024 Patient encounter procedure MD Shantel Steven Work Phone: [facility] Work Phone: Start: 04-29-2024 End: 04-29-2024 MD Shantel Steven Work Phone: [facility]ician [facility] Work Phone: Start: 04-03-2024 End: 04-03-2024 ambulatory MD Shantel Steven Work Phone: [facility] Work Phone: Start: 04-03-2024 End: 04-03-2024 Patient encounter procedure MD Shantel Steven Work Phone: [facility] Work Phone: Start: 04-03-2024 End: 04-03-2024 MD Shantel Steven Work Phone: [facility] Work Phone: Start: 04-01-2024 Non-patient / Non-visit MD Alessia Steven Work Phone: [facility] Work Phone: Start: 04-01-2024 MD Shantel painting Work Phone: [facility] Work Phone: Start: 03-31-2024 Non-patient / Non-visit MD Alessia Steven Work Phone: [facility] Work Phone: Start: 03-31-2024 MD Shantel painting Work Phone: [facility] Work Phone: Start: 03-28-2024 Non-patient / Non-visit MD Alessia Steven Work Phone: [facility] Work Phone: Start: 03-28-2024 MD Shantel painting Work Phone: [facility] Work Phone: Start: 03-27-2024 Non-patient / Non-visit MD Alessia Steven Work Phone: [facility] Work Phone: Start: 03-27-2024 MD Shantel painting Work Phone: [facility] Work Phone: Start: 03-26-2024 Non-patient / Non-visit MD Alessia Steven Work Phone: [facility] Work Phone: Start: 03-26-2024 MD Shantel painting Work Phone: [facility] Work Phone: Start: 03-25-2024 End: 03-25-2024 Patient encounter procedure MD Shantel Steven Work Phone: [facility] Work Phone: Start: 03-25-2024 End: 03-25-2024 MD Shantel Steven Work Phone: [facility] Work Phone: Start: 03-13-2024 End: 03-13-2024 Patient encounter procedure MD Shantel Steven Work Phone: [facility] [address] Work Phone: Start: 03-13-2024 End: 03-13-2024 ambulatory MD Shantel Steven Work Phone: [facility] Work Phone: Start: 03-07-2024 End: 03-07-2024 ambulatory [facility] Start: 02-19-2024 ambulatory FRANCHESCA CUELLARRY Facility :[facility] Start: 02-15-2024 End: 02-15-2024 ambulatory [facility] Work Phone: Start: 02-15-2024 End: 02-15-2024 Patient encounter procedure [facility] Work Phone: Start: 01-29-2024 Non-patient / Non-visit [facility] Work Phone: Start: 01-24-2024 Non-patient / Non-visit [facility] Work Phone: Start: 01-22-2024 Non-patient / Non-visit [facility] Work Phone: Start: 01-18-2024 End: 01-18-2024 Patient encounter procedure [facility] Work Phone: Start: 01-15-2024 Non-patient / Non-visit [facility] Work Phone: Start: 01-04-2024 Non-patient / Non-visit [facility] Work Phone: Start: 12-18-2023 End: 12-18-2023 ambulatory Shantel Steven Other [facility] Other Start: 12-18-2023 Telephone encounter Shantel Steven [facility] Start: 11-19-2023 End: 11-19-2023 ambulatory Shantel Steven Other [facility] Other Start: 11-19-2023 Telephone encounter Shantel Steven [facility] Start: 10-23-2023 End: 10-23-2023 ambulatory Aziz Bakhous Other [facility] Other Start: 10-23-2023 Office outpatient ne w 30 minutes Aziz Bakhous [facility] [place] Start: 10-22-2023 End: 10-22-2023 ambulatory Shantel Steven Other [facility] Other Start: 10-22-2023 Telephone encounter Shantel Steven [facility] Start: 10-18-2023 End: 10-18-2023 ambulatory Shantel Steven Other [facility] Other Start: 10-18-2023 Office outpatient vi sit 15 minutes Shantel Steven [facility] Start: 09-07-2023 End: 09-07-2023 ambulatory Shantel Steven Other [facility] Other Start: 09-07-2023 Telephone encounter Shantel Steven [facility] Start: 09-04-2023 End: 09-04-2023 ambulatory Shantel Steven Other [facility] Other Start: 09-04-2023 Office outpatient vi sit 25 minutes Shantel Steven [facility] Start: 08-23-2023 End: 08-23-2023 ambulatory Shantel Steven Other [facility] Other Start: 08-23-2023 Telephone encounter Shantel Tenisha [facility] Start: 07-23-2023 End: 07-23-2023 ambulatory Shantel Steven Other [facility] Other Start: 07-23-2023 Telephone encounter Shantel Tenisha [facility] Start: 07-17-2023 End: 07-17-2023 ambulatory Shantel Steven Other [facility] Other Start: 07-17-2023 Office outpatient vi sit 25 minutes Shantel Tenisha [facility] Start: 05-30-2023 End: 05-30-2023 ambulatory Shantel Steven Other [facility] Other Start: 05-30-2023 Telephone encounter Shantel Steven [facility] Start: 05-22-2023 End: 05-22-2023 ambulatory Shantel Steven Other [facility] Other Start: 05-22-2023 Telephone encounter Shantel Steven [facility] Start: 05-16-2023 End: 05-16-2023 ambulatory Shantel Steven Other [facility] Other Start: 05-16-2023 Telephone encounter Shantel Steven [facility] Start: 05-07-2023 End: 05-07-2023 ambulatory Shantel Steven Other [facility] Other Start: 05-07-2023 Telephone encounter Shantel Steven [facility] Start: 04-30-2023 End: 04-30-2023 ambulatory Shantel Steven Other [facility] Other Start: 04-30-2023 Office outpatient vi sit 25 minutes Shantel Steven [facility] Start: 04-25-2023 End: 04-25-2023 ambulatory Shantel Steven Other [facility] Other Start: 04-25-2023 Telephone encounter Shantel Steven [facility] Start: 04-12-2023 End: 04-12-2023 ambulatory Shantel Steven Other [facility] Other Start: 04-12-2023 Telephone encounter Shantel Steven [facility] Start: 03-09-2023 End: 03-09-2023 ambulatory Shantel Steven Other [facility] Other Start: 03-09-2023 Office outpatient vi sit 15 minutes Shantel Steven [facility] Start: 03-07-2023 End: 03-07-2023 ambulatory Shantel Steven Other [facility] Other Start: 03-07-2023 Telephone encounter Shantel Steven [facility] Start: 03-06-2023 End: 03-06-[address] HSANTEL STEVEN Facility:[facility] Start: 03-05-2023 End: 03-05-2023 ambulatory Shantel Steven Other [facility] Other Start: 03-05-2023 Telephone encounter Shantel Steven [facility] Start: 02-26-2023 End: 02-26-2023 ambulatory Shantel Steven Other [facility] Other Start: 02-26-2023 Telephone encounter Shantel Steven [facility] Start: 02-24-2023 End: 02-24-[address] SHANTEL STEVEN Facility:[facility] Start: 02-23-2023 End: 02-23-2023 ambulatory Shantel Steven Other [facility] Other Start: 02-23-2023 Telephone encounter Shantel Steven [facility] Start: 02-20-2023 End: 02-20-2023 ambulatory Shantel Steven Other [facility] Other Start: 02-20-2023 Transitional care luz misha srvc 14 day discharge Shantel Steven [facility] Start: 02-16-2023 End: 02-16-2023 ambulatory Shantel Steven Other [facility] Other Start: 02-16-2023 Telephone encounter Shantel Steven [facility] Start: 02-13-2023 End: 02-14-[address] SHANTEL STEVEN Facility:[facility] Start: 02-02-2023 End: 02-02-2023 ambulatory Shantel Steven Other [facility] Other Start: 02-02-2023 Telephone encounter Shantel Steven [facility] Start: 01-16-2023 End: 01-17-[address] DOCTOR CARMONA Facility:[facility] Start: 01-05-2023 End: 01-05-2023 ambulatory BIN ROJAS Facility:[facility] Start: 01-01-2023 End: 01-02-2023 ambulatory ANALISA BRYANT Facility:[facility] Start: 11-29-2022 End: 11-29-2022 ambulatory Shantel Steven Other [facility] Other Start: 11-29-2022 Telephone encounter Shantel Steven [facility] Start: 11-27-2022 End: 11-27-2022 ambulatory Shantel Steven Other [facility] Other Start: 11-27-2022 Telephone encounter Shantel Steven [facility] Start: 11-24-2022 End: 11-24-2022 ambulatory Shantel Steven Other [facility] Other Start: 01-13-2023 Telephone encounter Shantel Steven [facility] Start: 11-06-2022 ambulatory YAMEL MCCRACKEN Facility :[facility] Start: 09-15-2022 End: 09-16-[address] SHANTEL STEVEN Facility:[facility] Start: 08-04-2022 End: 08-04-2022 Patient encounter procedure Bin SORENSON [facility] [place] Start: 05-02-2022 End: 05-02-[address] SHANTEL STEVEN Facility:[facility] Start: 08-25-2021 Office outpatient ne w 45 minutes Akbar Cui II [facility] Start: 08-09-2017 End: 08-12-2017 Ambulatory PROVIDER UNKNOWN Facility:[facility] Procedures Date Procedure Procedure Detail Performing [...] Activity Detail Author Start: 12-10-2024 Patient referral [facility] Work Phone: Start: 10-20-2024 [facility] Start: 10-16-2024 Consultation [facility] Start: 10-16-2024 Hospital admission [facility] Start: 10-16-2024 Referral to repairer shoe sticks [facility] Start: [...] [facility] [place] [address] [place] [id number] Wanda Patel DO [address] [place] [id number] [facility] [address] Start: 09-04-2024 End: 09-04-2024 Patient encounter procedure 09/04/2024 1:20 PM EDT Office Visit [facility] [place] [address] [place] [phone] Lizett Jacinto NP [address] [place], [place] [facility] [place] [address] Start: 07-22-2024 End: 07-22-2024 Patient encounter procedure 07/22/2024 1:10 PM EDT Office Visit [facility] [address] [place] [id number] Christel Chacon MD [address] [place] [address] Arrived [facility] Comment on above: Arrived Start: 07-17-2024 Bacteria identified in Urine by Culture [facility] Start: 07-17-2024 [facility] Start: 07-15-2024 End: 07-15-2024 Patient encounter procedure 07/15/2024 1:10 PM EDT Office Visit [facility] [address] [place] [id number] Christel Chacon MD [address] [place] [address] [facility] Start: 2024 Influenza vaccination Influenza Vacc ine (#1) [facility] Start: 07-10-2024 End: 07-10-2024 Patient encounter procedure 07/10/2024 1:40 PM EDT Office Visit [facility] [place] [address] [place] [address] Lizett Jacinto NP [address] [place], [place] Arrived [facility] [place] [address] Comment on above: Arrived Start: 06-25-2024 Patient referral [facility] Work Phone: Start: 06-16-2024 Patient referral [facility] Work Phone: Start: 05-07-2024 Patient referral [facility] Work Phone: Start: 05-04-2024 Blood Culture 1 Blood Culture 1 [facility] Start: 02-15-2024 Patient referral [facility] Work Phone: Comprehensive metabo lic 2000 panel - Serum or Plasma [facility] CT Abdomen and Pelvi s WO contrast [facility] Microalbumin [Mass/volume] in Urine [facility] Patient Education [facility] Work Phone: Patient referral [facility] Work Phone: Renal function 1999 panel - Serum or Plasma [facility] Renal function 1999 panel - Serum or Plasma [facility] US Ax[facility] Immunizations Immunization Date Immunization Notes Care Provider Fa cility 01-18-2024 Pneumococcal Conjugate Vaccine, 20 valent [facility] 09-04-2023 influenza, high dose seasonal, preservative-free Shantel Steven Other [facility] [employer] Other 09-04-2023 influenza virus vaccine, unspecified formulation [facility] 02-04-2021 COVID-19 mRNA, Comirnaty (Pfizer) [facility] 01-21-2021 COVID-19 mRNA, Comirnaty (Pfizer) [facility] 10-09-2018 influenza virus vaccine, split virus (incl. purified surface antigen) Shantel Steven Other [facility] Other 10-09-2018 influenza virus vaccine, unspecified formulation [facility] NEGATED: Highlighted row has not occurred!10-17-2024 influenza, high dose seasonal, preservative-free Jorge Luis Zavala DO Work Phone: [facility] NEGATED: Highlighted row has not occurred!08-21-2019 influenza virus vaccine, split virus (incl. purified surface antigen) Shantel Steven Other [facility] Other Payers Date Payer Category Payer Medicare [id number] 2024 Self-pay [id number] 2023 Medicare [employer] MEDICARE ADVANTAGE [facility] MEDICARE [id number] 2023-Present [address] [place] [id number] 2023 Medicare (Managed Care) [employer] EDICARE ADVANTAGE [id number] 1959 Medicare [id number] 1959 Self-pay [id number] 1945 Unknown [id number] 2.16.840.1.782295.3.579. 2.593 1946 Unknown [id number] 2.16840.1.897950.3.579. 2.593 1946 Unknown [id number] 2.16.840.1.321245.3.579. 2.593 1946 Unknown [id number] 2.16.840.1.526957.3.579. 2.593 1946 Unknown [id number] 2.16.840.1.208613.3.579. 2.593 1946 Unknown [id number] 2.16.840.1.587370.3.579. 2.593 1946 Unknown [id number] 2.16.840.1.168792.3.579. 2.593 1946 Unknown [id number] 2.16.840.1.240314.3.579. 2.593 1946 Unknown [id number] 2.16840.1.055811.3.579. 2.593 1946 Unknown [id number] 2.840.1.073391.3.579. 2.1259 1946 Unknown [id number] 2.16840.1.739090.3.579. 2.1259 1946 Unknown [id number] 2.16840.1.576874.3.579. 2.1259 1946 Unknown [id number] 2.16840.1.012699.3.579. 2.727 1946 Unknown [id number] 2.840.1.470462.3.579. 2.727 1946 Unknown [id number] 2.16.840.1.542248.3.579. 2.727 1946 Unknown [id number] 2.16.840.1.620430.3.579. 2.727 1946 Unknown [id number] 2.16.840.1.518542.3.579. 2.727 Unknown Unknown [id number] 2.16840.1.814765.3.579. 2.531 Unknown [id number] 2.16.840.1.251869.3.579. 2.531 Unknown [id number] 2.16.840.1.209872.3.579. 2.531 Unknown [id number] 2.16.840.1.058241.3.579. 2.531 Unknown [id number] 2.16.840.1.447171.3.579. 2.531 Unknown [id number] 2.16.840.1.923433.3.579. 2.531 Social History Date Type Detail Facility Start: 07-22-2024 End: 10-01-2024 Sex Assigned At [facility] Other Start: 08-04-2022 End: 10-25-2024 Tobacco smoking status Ex-smoker (finding) [facility] [place] Tobacco smoking status Never [facility] [place] Start: 1945 Sex Assigned At Female F [facility] History of tobacco use Current smoker [facility] History of tobacco use Cigarette Smoker N [facility] Start: 07-03-2024 Tobacco use and exposure Smokeless tobacco non-user [facility] Start: 07-22-2024 End: 10-01-2024 Alcoholic beverage intake Lifetime non-drinker (finding) [facility] Start: 07-22-2024 End: 10-01-2024 [address] [facility] Start: 07-08-2024 Alcohol Comment caffeine: 1-[address] [facility] Start: 1945 Sex assigned at Not on file N [facility] Start: 12-26-2024 End: 01-21-2025 Sex Female (finding) [facility] Medical Equipment Procedure Code Equipment Code Equipment Origin al Text Equipment Identifier Dates Blood Sugar Diagnostic (True Metrix Glucose Test Strip) strip Start: 03-31-2024 Pen Needle, Diab etic (Comfort Ez Pen [place]) 33 gauge x 5/32 needle Start: 03-25-2024 Blood Sugar Diagnostic (True Metrix Glucose Test Strip) strip Start: 03-31-2024 End: 03-31-2024 Blood Sugar Diagnostic (True Metrix Glucose Test Strip) strip Start: 03-31-2024 Pen Needle, Diab etic (Comfort Ez Pen [place]) 33 gauge x 5/32 needle Start: 03-25-2024 Blood Sugar Diagnostic (True Metrix Glucose Test Strip) strip Start: 03-31-2024 End: 03-31-2024 Blood Sugar Diagnostic (True Metrix Glucose Test Strip) strip Start: 03-31-2024 Pen Needle, Diab etic (Comfort Ez Pen [place]) 33 gauge x 5/32 needle Start: 03-25-2024 Blood Sugar Diagnostic (True Metrix Glucose Test Strip) strip Start: 03-31-2024 End: 03-31-2024 Blood Sugar Diagnostic (True Metrix Glucose Test Strip) strip Start: 03-31-2024 Pen Needle, Diab etic (Comfort Ez Pen [place]) 33 gauge x 5/32 needle Start: 03-25-2024 Blood Sugar Diagnostic (True Metrix Glucose Test Strip) strip Start: 03-31-2024 End: 03-31-2024 Blood Sugar Diagnostic (True Metrix Glucose Test Strip) strip Start: 03-31-2024 Pen Needle, Diab etic (Comfort Ez Pen [place]) 33 gauge x 5/32 needle Start: 03-25-2024 Blood Sugar Diagnostic (True Metrix Glucose Test Strip) strip Start: 03-31-2024 End: 03-31-2024 Blood Sugar Diagnostic (True Metrix Glucose Test Strip) strip Start: 03-31-2024 Pen Needle, Diab etic (Comfort Ez Pen [place]) 33 gauge x 5/32 needle Start: 03-25-2024 Blood Sugar Diagnostic (True Metrix Glucose Test Strip) strip Start: 03-31-2024 End: 03-31-2024 Blood Sugar Diagnostic (True Metrix Glucose Test Strip) strip Start: 03-31-2024 Pen Needle, Diab etic (Comfort Ez Pen [place]) 33 gauge x 5/32 needle Start: 03-25-2024 Blood Sugar Diagnostic (True Metrix Glucose Test Strip) strip Start: 03-31-2024 End: 03-31-2024 Blood Sugar Diagnostic (True Metrix Glucose Test Strip) strip Start: 03-31-2024 Pen Needle, Diab etic (Comfort Ez Pen [place]) 33 gauge x 5/32 needle Start: 03-25-2024 Blood Sugar Diagnostic (True Metrix Glucose Test Strip) strip Start: 03-31-2024 End: 03-31-2024 Blood Sugar Diagnostic (True Metrix Glucose Test Strip) strip Start: 03-31-2024 Pen Needle, Diab etic (Comfort Ez Pen [place]) 33 gauge x 5/32 needle Start: 03-25-2024 Blood Sugar Diagnostic (True Metrix Glucose Test Strip) strip Start: 03-31-2024 End: 03-31-2024 Pen Needle, Diab etic (Comfort Ez Pen [place]) 33 gauge x 5/32 needle Start: 03-25-2024 Blood Sugar Diagnostic (True Metrix Glucose Test Strip) strip Start: 03-31-2024 End: 10-16-2024 Blood Sugar Diagnostic (True Metrix Glucose Test Strip) strip Start: 03-31-2024 End: 03-31-2024 Pen Needle, Diab etic (Comfort Ez Pen [place]) 33 gauge x 5/32 needle Start: 03-25-2024 Blood Sugar Diagnostic (True Metrix Glucose Test Strip) strip Start: 03-31-2024 End: 10-16-2024 Blood Sugar Diagnostic (True Metrix Glucose Test Strip) strip Start: 03-31-2024 End: 03-31-2024 Pen Needle, Diab etic (Comfort Ez Pen [place]) 33 gauge x 5/32 needle Start: 03-25-2024 Blood Sugar Diagnostic (True Metrix Glucose Test Strip) strip Start: 03-31-2024 End: 10-16-2024 Blood Sugar Diagnostic (True Metrix Glucose Test Strip) strip Start: 03-31-2024 End: 03-31-2024 Goals Date Patient Goal Desired Activity /State Functional Status Date Assessment Result Facility 11-04-2024 Functional Status N/A [facility] 10-20-2024 Functional status Patient at Baseline [facility] Work Phone: 08-04-2022 Functional Status N/A [facility] Mental Status Date Assessment Result Facility 10-20-2024 Cognitive function Cognitive Sta tus Patient at Baseline [facility] Work Phone: Clinical Notes 08-25-2021 to 01-07-2025 Telephone Encounter - Christel Chacon MD - 01/07/2025 12:08 PM ESTTelephone Encounter - Christel Chacon MD - 01/07/2025 12:08 PM ESTTelephone Encounter - Jeanne Chacon - 01/07/2025 11:26 AM EST Note Date & Type Note Facility 01-07-2025 Telephone encounter Note prn [facility] 01-07-2025 Miscellaneous Notes prn Called pt/spoke with spouse/he said she does not want to schedule with Dr Hurd/if she changes her mind she will call us back. documented in this encounter [facility] 01-07-2025 Telephone encounter Note Called pt/spoke with spouse/he said she does not want to schedule with Dr Hurd/if she changes her mind she will call us back. [facility] 01-06-2025 Telephone encounter Note Left a message for pt to call Dr Chacon's office back to see if pt is planning on scheduling with Dr Hurd for sleep study. [facility] 01-06-2025 Miscellaneous Notes Left a message for pt to call Dr Chacon's office back to see if pt is planning on scheduling with Dr Hurd for sleep study. documented in this encounter [facility] 12-02-2024 Note Cardiovascular Medic ine [facility] SUBJECTIVE Patient is here today for [...] postchemotherapy and radiation She was recently in [facility] 10/16/2024, she presented with fatigue, lightheadedness and [...] Oz of fluid a day per the repairer shoe sticks. Her most recent discharge on 07/25/24 she [...] noticed occasional horsen (more content not included)... [facility] 11-04-2024 Hospital Discharg e instructions Patient [...] Follow these instructions at home: Medicines Take yebo-cic-zwyrocl and prescription medicines only as told by [...] provider. Document Revised: 07/20/2021 Document Reviewed: 07/20/2021 [employer] Patient Education 2023 [employer]. Follow Up Care 10/20/2024 13:37:01 With:FRANCHESCA PERAZA, TIRSOL Address: [place] [place] [address] Business (1) When:6 weeks [facility] 11-04-2024 Note Patient Education Obstetrics and Gynecology [...] these instructions at home: Medicines ??? Take arww-qiq-xliopdq and prescription medicines only as told by [...] provider. Document Revised: 07/20/2021 Document Reviewed: 07/20/2021 [employer] Patient Education ? 2023 [employer]. [facility] 11-03-2024 Evaluation note Diagnosis Onset Date Resolution [...] current use of acute uar 2024 3:21pm [facility] Work Phone: 1(210) 914-194112-23-2024 Evaluation note* Diagnosis Onset Date Resolution Status [...] use of acute January 14, 2025 10:00am [facility] Work Phone: 1(975) 997-828512-20-2024 NoteCardiovascular Medicine [facility] SUBJECTIVE Patient is here today for hospital follow-up. She was in [facility] with bradycardia. HPI 10/31/2024 Joe Call is a 79 y.o. female here for follow-up. Patient has history of HFpEF, paroxysmal atrial fibrillation, hypertension, diabetes mellitus type 2, chronic kidney disease, remote history of breast cancer status postchemotherapy and radiation She was recently in [facility] 10/16/2024, she presented with fatigue, lightheadedness and [...] Oz of fluid a day per the repairer shoe sticks. Her most recent discharge on 07/25/24 she [...] pain Depressive disorder Diabe (more content not included)...[facility] 10-16-2024 Evaluation note* Diagnosis Onset Date [...] disease acu te December 09, 2024 1:24pm [facility] Work Phone: 1(479) 667-561111-27-2024 NoteCardiovascular Medicine [facility] SUBJECTIVE Chief Complaint Patient presents with Congestive [...] Oz of fluid a day per the repairer shoe sticks. Her most recent discharge on 07/25/24 she [...] deficiency Lymphedema of left arm Morbid obesity ([facility]) Obstructive sleep apnea syndrome Paroxysmal supraventricular tachycardia ([facility]) Psoriasis Type 2 diabetes mellitus without complication ([facility]) Mixed hyperlipidemia Diastolic dysfunction Carotid bruit Chronic diarrhea Chronic low back pain Depressive disorder Diabetes mellitus ([facility]) Diabetic neuropathy ([facility]) Exocrine pancreatic insufficiency Gastroesophageal reflux disease Hypertension Hypomagnesemia Hypothyroidism Stage 3 chronic kidney disease ([facility]) Hyperlipidemia Atrial fibrillation ([facility]) Paroxysmal atrial fibrillation ([facility]) Abdominal swelling, generalized Acute on chronic diastolic CHF (congestive heart failure) ([facility]) Anxiety Back pain with history of spinal surgery Cervical disc disease Chalazion of right eye Dyspnea Hordeolum externum (stye) Immunization due Lactose intolerance 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 ([facility]) Lumbar degenerative disc disease Lumbar spondylosis Lymph edema Macular degeneration Memory changes Osteoarthritis Secondary hyperparathyroidism ([facility]) Stress incontinence of urine Thrush of mouth and esophagus ([facility]) Urinary incontinence UTI (urinary tract infection) Yeast cystitis CARMELO (acute kidney injury) ([facility]) Tremor Acquired hammer toe of right foot Ataxia Balance disorder CHF (congestive heart failure) ([facility]) Dehydration Diabetic foot ([facility]) Diabetic peripheral neuropathy associated with type 2 diabetes mellitus ([facility]) Disability of walking Essential tremor LPRD (laryngopharyngeal reflux disease) Mass of right axilla Paresthesia Throat tightness Type 2 diabetes mellitus with hyperglycemia, with long-term current use of insulin ([facility]) Venous insufficiency (chronic) (peripheral) Debility Past Medical History: Diagnosis Date Atrial fibrillation ([facility]) Cancer ([facility]) Carotid artery stenosis Coronary (more content not included)...[facility] 10-08-2024 NotePatient here for 1 mo follow up chronic diastolic heart failure, hypertension, PAF, and CAD. Lisinopril was held at last visit due to acute CRAMELO. She said she did not stop this. She had repeat labs 2 weeks ago. Denies chest pain, palpitations, and bleeding on Xarelto. Says her SOB is intermittent. Review of Systems Cardiovascular: Positive for dyspnea on exertion (intermittent). Respiratory: Positive for shortness of breath (intermittent). Musculoskeletal: Positive for muscle weakness. Neurological: Positive for light-headedness and tremors. All other systems reviewed and are negative.[facility] 10-01-2024 History of Present illness Narrative* Christel Chacon MD - 10/01/2024 9:50 AM EST Subjective Patient ID: Joe Call is a [...] on chronic diastolic CHF (congestive heart failure) ([facility]) 05/20/2024 CARMELO (acute kidney injury) ([facility]) 05/20/2024 Anxiety 05/20/2024 Aortic valve disorder 08/20/2012 Back pain with history of spinal surgery 05/20/2024 Benign essential hypertension ([facility]) 04/02/2012 Carotid artery stenosis 07/20/2022 Carotid bruit 01/16/2023 Cervical disc disease 05/20/2024 Chalazion of right eye 05/20/2024 Chronic diarrhea 01/16/2023 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 Chronic low back pain 01/16/2023 Coronary atherosclerosis ([facility]) 03/20/2012 Depressive disorder ([facility]) 01/16/2023 Diabetes mellitus ([facility]) 07/03/2024 Diabetic foot ([facility]) 07/03/2024 Diabetic neuropathy ([facility]) 01/16/2023 Diabetic peripheral neuropathy associated with type 2 diabetes mellitus ([facility]) 07/03/2024 Diastolic dysfunction 09/05/2022 Disability of walking 07/03/2024 Diverticulitis of colon 03/20/2012 Dyspnea 05/20/2024 Exocrine pancreatic insufficiency ([facility]) 01/16/2023 Gastroesophageal reflux disease 01/16/2023 History of malignant neoplasm of breast 03/20/2012 Hordeolum externum (stye) 05/20/2024 Hyperlipidemia ([facility]) 07/03/2024 Hypertension ([facility]) 01/16/2023 Near syncope 07/03/2024 Hypomagnesemia 01/16/2023 Hypothyroidism ([facility]) 01/16/2023 Lumbar degenerative disc disease 05/20/2024 Lumbar spondylosis 05/20/2024 Lymph edema 05/20/2024 Lymphedema of left arm 03/20/2012 Macular degeneration 05/20/2024 Memory changes 05/20/2024 Morbid obesity ([facility]) 07/20/2022 Obstructive sleep apnea syndrome 03/20/2012 Paroxysmal atrial fibrillation ([facility]) 03/20/2012 Paroxysmal supraventricular tachycardia ([facility]) 03/26/2012 Psoriasis ([facility]) 03/20/2012 Secondary hyperparathyroidism ([facility]) 05/20/2024 Stage 3 chronic kidney disease (HCC) ([facility]) 01/16/2023 Hypertensive chronic kidney disease with stage 1 through stage 4 chronic kidney disease, or unspecified chronic kidney disease ([facility]) 07/03/2024 Thrush of mouth and esophagus ([facility]) 05/20/2024 Tremor 06/18/2024 Type 2 diabetes mellitus with hyperglycemia, with long-term current use of insulin ([facility]) 07/03/2024 Venous insufficiency (chronic) (peripheral) 07/03/2024 Essential tremor 07/08/2024 Balance disorder 07/08/2024 Ataxia 07/08/2024 Diabetic peripheral neuropathy ([facility]) 07/08/2024 Paresthesia 07/08/2024 Sensory ataxia 07/10/2024 Debility 07/10/2024 Weakness 07/10/2024 Paresthesias 07/10/2024 JED (obstructive sleep apnea) 07/22/2024 LPRD (laryngopharyngeal reflux disease) 07/22/2024 Throat tightness 07/22/2024 Resolved Ambulatory Problems Diagnosis Date Noted Acute pain of left shoulder 07/03/2024 Lactose intolerance 05/20/2024 FDC (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 insulin ([facility]) 05/20/2024 Pharyngitis 07/03/2024 CKD (chronic kidney disease), stage IV ([facility]) 07/03/2024 Stress incontinence of urine 05/20/2024 Urinary incontinence 05/20/2024 UTI (urinary tract infection) 05/20/2024 Yeast cystitis 05/20/2024 Past Medical History: Diagnosis Date Anemia Breast cancer ([facility]) Coronary heart disease ([facility]) Diverticulosis GERD (gastroesophageal reflux disease) ME (myocardial infarction) ([facility]) Myocardial infarction ([facility]) Type II diabetes mellitus ([facility]) Past Surgical History: Procedure Laterality Date APPENDECTOMY [...] I will call pt. documented [id number] Telephone encounter Note* Telephone Encounter - Jeanne Chacon - 09/30/2024 11:01 AM EST Pt is scheduled with Dr Chacon 10/01/2024. [id number] Miscellaneous Notes* Telephone Encounter - Jeanne Chacon - 09/30/2024 11:01 AM EST Pt is scheduled with Dr Chacon 10/01/2024. * Telephone Encounter - Jeanne Chacon - 09/26/2024 8:50 AM EST Tried to call pt to schedule a follow up appt for labs, unable to leave a message. documented in this encounter[facility] [id number] Telephone encounter Note* Telephone Encounter - Jeannebrodie Chacon - 09/26/2024 8:50 AM EST Tried to call pt to schedule a follow up appt for labs, unable to leave a message. [id number] NoteCardiovascular Medicine [facility] SUBJECTIVE Chief Complaint Patient presents with Congestive [...] Oz of fluid a day per the repairer shoe sticks. Her most recent discharge on 07/25/24 she [...] Hypomagnesemia Hypothyroidism Stage 3 chronic kidney disease ([facility]) Hyperlipidemia Atrial fibrillation ([facility]) Paroxysmal atrial fibrillation ([facility]) Abdominal swelling, generalized Acute on chronic diastolic CHF (congestive heart failure) ([facility]) Anxiety Back pain with history of spinal surgery Cervical disc disease Chalazion of right eye Dyspnea Hordeolum externum (stye) Immunization due Lactose intolerance 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 ([facility]) Lumbar degenerative disc disease Lumbar spondylosis Lymph edema Macular degeneration Memory changes Osteoarthritis Secondary hyperparathyroidism ([facility]) Stress incontinence of urine Thrush of mouth and esophagus ([facility]) Urinary incontinence UTI (urinary tract infection) Yeast cystitis CARMELO (acute kidney injury) ([facility]) Tremor Acquired hammer toe of right foot Ataxia Balance disorder CHF (congestive heart failure) ([facility]) Dehydration Diabetic foot ([facility]) Diabetic peripheral neuropathy associated with type 2 diabetes mellitus ([facility]) Disability of walking Essential tremor LPRD (laryngopharyngeal reflux disease) Mass of right axilla Paresthesia Throat tightness Type 2 diabetes mellitus with hyperglycemia, with long-term current use of insulin ([facility]) Venous insufficiency (chronic) (peripheral) Debility Past Medical History: Diagnosis Date Atrial fibrillation ([facility]) Cancer ([facility] Carotid artery stenosis Coronary artery disease Diabetes mellitus ([facility]) GERD (gastroesophageal reflux disease) Hypertension Sleep apnea Family History Problem Relation Name Age of Onset Coronary artery disease Other Diabetes Other Polycystic kidney disease Other Social History Tobacco Use Smoking status: Former Types: Ci (more content not included)...[facility] 09-03-2024 NotePatient here for 2 week follow up. Had echo last week and labs drawn this afternoon. Says she's feeling better. Still denies chest pain, palpitations, and bleeding on Xarelto. Review of Systems Cardiovascular: Positive for leg swelling (feet). Respiratory: Positive for shortness of breath. Musculoskeletal: Positive for muscle weakness. Neurological: Positive for tremors. All other systems reviewed and are negative.[facility] 08-20-2024 NotePatient here for follow up [facility]. Her [...] tremors. All other systems reviewed and are negative.[facility] 08-20-2024 NoteCardiovascular Medicine [facility] SUBJECTIVE Chief Complaint Patient presents with [...] Oz of fluid a day per the repairer shoe sticks. Her most recent discharge on 07/25/24 she [...] deficiency Lymphedema of left arm Morbid obesity ([facility]) Obstructive sleep apnea syndrome Paroxysmal supraventricular tachycardia ([facility]) Psoriasis Type 2 diabetes mellitus without complication ([facility]) Mixed hyperlipidemia Diastolic dysfunction Carotid bruit Chronic diarrhea Chronic low back pain Depressive disorder Diabetes mellitus ([facility]) Diabetic neuropathy ([facility]) Exocrine pancreatic insufficiency Gastroesophageal reflux disease Hypertension Hypomagnesemia Hypothyroidism Stage 3 chronic kidney disease ([facility]) Hyperlipidemia Atrial fibrillation ([facility]) Paroxysmal atrial fibrillation ([facility]) Abdominal swelling, generalized Acute on chronic diastolic CHF (congestive heart failure) ([facility]) Anxiety Back pain with history of spinal surgery Cervical disc disease Chalazion of right eye Dyspnea Hordeolum externum (stye) Immunization due Lactose intolerance 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 ([facility]) Lumbar degenerative disc disease Lumbar spondylosis Lymph edema Macular degeneration Memory changes Osteoarthritis Secondary hyperparathyroidism ([facility]) Stress incontinence of urine Thrush of mouth and esophagus ([facility]) Urinary incontinence UTI (urinary tract infection) Yeast cystitis CARMELO (acute kidney injury) ([facility]) Tremor Acquired hammer toe of right foot Ataxia Balance disorder CHF (congestive heart failure) ([facility]) Dehydration Diabetic foot ([facility]) Diabetic peripheral neuropathy associated with type 2 diabetes mellitus ([facility]) Disability of walking Essential tremor LPRD (laryngopharyngeal reflux disease) Mass of right axilla Paresthesia Throat tightness Type 2 diabetes mellitus with hyperglycemia, with long-term current use of insulin ([facility]) Venous insufficiency (chronic) (peripheral) Debility Past Medical History: Diagnosis Date Atrial fibrillation ([facility]) Cancer ([facility] Carotid artery stenosis Coronary artery disease Diabetes mellitus ([facility]) GERD (gastroesophageal reflux disease) Hypertension [...] All other systems reviewed (more content not included)...[facility]09[facility] History of Present illness Narrative* Christel [...] on chronic diastolic CHF (congestive heart failure) ([facility]) 05/20/2024 CARMELO (acute kidney injury) ([facility]) 05/20/2024 Anxiety 05/20/2024 Aortic valve disorder 08/20/2012 [...] 05/20/2024 Stage 3 chronic kidney disease (HCC) ([facility]) 01/16/2023 Hypertensive chronic kidney disease with stage 1 through stage 4 chronic kidney disease, or unspecified chronic kidney disease ([facility]/HCC) 07/03/2024 Thrush of mouth and esophagus ([facility]/HCC) 05/20/2024 Tremor 06/18/2024 Type 2 diabetes mellitus with hyperglycemia, with long-term current use of insulin ([facility]) 07/03/2024 Venous insufficiency (chronic) (peripheral) 07/03/2024 Essential tremor 07/08/2024 Balance disorder 07/08/2024 Ataxia 07/08/2024 Diabetic peripheral neuropathy ([facility]) 07/08/2024 Paresthesia 07/08/2024 Sensory ataxia 07/10/2024 Debility 07/10/2024 Weakness 07/10/2024 Paresthesias 07/10/2024 Resolved Ambulatory Problems Diagnosis Date Noted Acute pain of left shoulder 07/03/2024 Lactose intolerance 05/20/2024 FDC (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 insulin ([facility]) 05/20/2024 Pharyngitis 07/03/2024 CKD (chronic kidney disease), stage IV ([facility]) 07/03/2024 Stress incontinence of urine 05/20/2024 Urinary incontinence 05/20/2024 UTI (urinary tract infection) 05/20/2024 Yeast cystitis 05/20/2024 Past Medical History: Diagnosis Date Anemia Breast cancer ([facility]) Coronary heart disease ([facility]) Diverticulosis GERD (gastroesophageal reflux disease) ME (myocardial infarction) ([facility]) Myocardial infarction ([facility] [facility] Type II diabetes mellitus ([facility]) Past Surgical History: Procedure Laterality Date APPENDECTOMY [...] contribute to throat fullness documented in this encounterResearch Belton [id number] History of Present illness Narrative* Lizett Jacinto, MONOLOGIST - 07/10/2024 1:40 PM EDT Images from the original note were not included. No chief complaint on file. Subjective Joe Call, 78 y.o., female Patient is here today for follow-up of tremors and neuropathy. I am following the plan of care established by who is present in the office today and supervising patient care. SHANNA Parkih presents today as HOSP F/U after being seen IP at [facility] for worsening SOB along with lower extremity edema and lower abdominal wall edema after being taken off of Lasix. Was discharged with instructions to f/u with PCP, Cardiologies, Solution Designer. States that she was dx with CHF [...] of left shoulder 07/03/2024 Anemia Breast cancer ([facility]/HCC) CKD (chronic kidney disease), stage IV ([facility]/HCC) 07/03/2024 Coronary heart disease ([facility]/HCC) Diverticulosis GERD (gastroesophageal reflux disease) Lactose intolerance 05/20/2024 FDC (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 insulin ([facility]) 05/20/2024 ME (myocardial infarction) ([facility]/HCC) Myocardial infarction ([facility]/HCC) Pharyngitis 07/03/2024 Type II diabetes mellitus ([facility]) Urinary incontinence 05/20/2024 Yeast cystitis 05/20/2024 Past [...] as we have not seen her in [facility]. She never followed up. Dr. [...] would need to be done through the payroll master. The patient does have benzodiazepines which are [...] modifying techniques such as weighted silverware, utensil ux design lead and/or cups with lids on them. . [...] and the medication options Weighted silverware Utensil ux design lead to aid with writing and putting on [...] to clinic: 2 months documented in this encounterResearch Belton [id number] NoteUT Cardiology - [facility] Subjective Joe Call is [...] Hordeolum externum (stye) Immunization due Lactose intolerance 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 (CMS/HCC) Lumbar degenerative [...] prior cardiac catheterizations. She has history of ME in the past and underwent balloon angioplasty (many years ago, prior to the stent era). 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 In December 2022 she was admitted to the [facility] with decompensated diastolic heart failure, she was treated with diuretic therapy. In February 2023 she was admitted to [facility] with dehydration secondary to acute gastroenteritis. She also had acute kidney injury in that setting. She has history of breast cancer more than 25 years ago s/p mastectomy, chemo and radiation therapy. She has lymphedema in the left arm. In the past she saw a consumer insight manager for bleeding behind the eye . [...] April 2024 she was admitted to the [facility] with increasing weakness and altered mental status. She also had acute renal insufficiency. She had UTI secondary to E. coli. She was admitted again to the [facility] on 06/09/2020 for with acute [...] Appearance: She is well-develo (more content not included)...[facility]07-09-2024 NoteBMP today to assess renal function and electrolytesUnMercy Health [facility]07-09-2024 NoteHeart failure is unchanged. NYHA Class II. Continue current treatment regimen. Dietary sodium restriction. Encouraged daily monitoring of the patient's weight. Continue current medications. Heart failure will be reassessed in 1 month. BMP to assess renal function and electrolytes today to see if can uptitrate GDMT- in light Lasix, lisinopril and aldactone on hold from recent hospitalizationUnMercy Health [facility]erm[facility]07-09-2024 NoteCoronary artery disease is unchanged. Continue current medications. Continue GDMT- lipitor, metoprolol continue risk factor modifications- heart healthy diet, regular exercise as tolerated and continue all medications.[facility] 05-20-2024 NoteLipid abnormalities are unchanged. Pharmacotherapy as ordered. Continue lipitorUnMercy Health Clermont Hospital07-09-2024 NoteUTP CARDIOLOGY PROGRESS NOTE HPI: Joe [...] for her. She will be seeing her repairer shoe sticks (Dr. Rapp) on 06/05/2024. Currently weight is [...] prior cardiac catheterizations. She has history of ME in the past and underwent balloon angioplasty (many years ago, prior to the stent era). 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 In December 2022 she was admitted to the [facility] with decompensated diastolic heart failure, she was treated with diuretic therapy. In February 2023 she was admitted to [facility] with dehydration secondary to acute gastroenteritis. She also had acute kidney injury in that setting. She has history of breast cancer more than 25 years ago s/p mastectomy, chemo and radiation therapy. She has lymphedema in the left arm. In the past she saw a consumer insight manager for bleeding behind the eye . [...] BSA 2.3 m??? Allergie (more content not included)...[facility] 05-20-2024 NotePatient here for follow up [facility] for [...] for her. She will be seeing her repairer shoe sticks (Dr. Rapp) on 06/05/2024. Review of Systems Cardiovascular: Positive for palpitations. Musculoskeletal: Positive for muscle weakness. All other systems reviewed and are negative.[facility] 03-07-2024 NoteUT Cardiology - [facility] Subjective Joe Call is [...] prior cardiac catheterizations. She has history of ME in the past and underwent balloon angioplasty (many years ago, prior to the stent era). 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 In December 2022 she was admitted to the [facility] with decompensated diastolic heart failure, she was treated with diuretic therapy. In February 2023 she was admitted to [facility] with dehydration secondary to acute gastroenteritis. She also had acute kidney injury in that setting. She has history of breast cancer more than 25 years ago s/p mastectomy, chemo and radiation therapy. She has lymphedema in the left arm. In the past she saw a consumer insight manager for bleeding behind the eye . [...] THREE TIMES DAILY NEEDED (more content not included)...[facility] 02-15-2024 Hospital Discharge instructionsAmbulatory Orders* Referral to Urology Time Frame: 02/15/24, Location: None [facility] Work Phone: [phone] 218-576101-08-2024 Evaluation note* Encounter Date Diagnosis Assessment Notes Treatment Notes Treatment Clinical Notes Nov, Lumbar degenerative disc disease (ICD-10 - M51.36) [facility] Other 12-12-2023 Evaluation note* Encounter Date Diagnosis [...] will check vitamin B12 level next visit [facility] Other 12-11-2023 Evaluation note* Encounter Date Diagnosis Assessment Notes Treatment Notes Treatment Clinical Notes Oct, Lumbar degenerative disc disease (ICD-10 - M51.36) [facility] Other 12-07-2023 Evaluation note* Encounter Date Diagnosis Assessment Notes Treatment Notes Treatment Clinical Notes Oct, Bronchitis (ICD-10 - J40) Finish meds. No acute need for antibiotic at this time Oct, Diabetes mellitus with chronic kidney disease (ICD-10 - E11.22) Due for labs, followup w Dr. Mcconnell Oct, Lumbar degenerative disc disease (ICD-10 - M51.36) Pt will contact neurosurgery. [facility] Other 10-27-2023 Evaluation note* Encounter Date Diagnosis Assessment Notes Treatment Notes Treatment Clinical Notes Aug, Chronic kidney disease, stage 4 (severe) (ICD-10 - N18.4) [facility] Other 10-24-2023 Evaluation note* Encounter Date Diagnosis [...] (ICD-10 - M51.36) Pt requests referral to [facility]. Reviewed OARRS report. Aug, Stress incontinence of urine (ICD-10 - N39.3) R/o infection. Discussed could be related to her diabetes med as well. [facility] Other 10-12-2023 Evaluation note* Encounter Date Diagnosis Assessment Notes Treatment Notes Treatment Clinical Notes Aug, Lumbar degenerative disc disease (ICD-10 - M51.36) [facility] Other 09-11-2023 Evaluation note* Encounter Date Diagnosis Assessment Notes Treatment Notes Treatment Clinical Notes Jul, Lumbar degenerative disc disease (ICD-10 - M51.36) [facility] Other 09-05-2023 Evaluation note* Encounter Date Diagnosis [...] refill. Oarrs reviewed. No med changes needed. [facility] Other 07-05-2023 Evaluation note* Encounter Date Diagnosis Assessment Notes Treatment Notes Treatment Clinical Notes May, C. difficile colitis (ICD-10 - A04.72) [facility] Other 06-19-2023 Evaluation note* Encounter Date Diagnosis Assessment Notes Treatment Notes Treatment Clinical Notes Apr, Skin candidiasis (ICD-10 - B37.2) Discussed this is related to her hyperglycemia. Will treat w nystatin, but needs improvement in diet and glucose readings. Apr, Type 2 diabetes mellitus with hyperglycemia, unspecified whether termite helper insulin use (ICD-10 - E11.65) Pt agrees to see Dr Mcconnell again. Recently sent to ER for glucose of 608. Apr, Tremor of both hands (ICD-10 - R25.1) Referral to Dr. Lopez Apr, Memory changes (ICD- 10 - R41.3) Referral to Dr. Lopez Apr, Gastroesophageal reflux disease without esophagitis (ICD-10 - K21.9) Improved on carafate w PPI. [facility] Other 06-01-2023 Evaluation note* Encounter Date Diagnosis Assessment Notes Treatment Notes Treatment Clinical Notes Apr, Gastroesophageal ref lux disease without esophagitis (ICD-10 - K21.9) [facility] Other 04-28-2023 Evaluation note* Encounter Date Diagnosis [...] (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 insulin (ICD-10 - Z79.4) [facility] Other 04-26-2023 Evaluation note* Encounter Date Diagnosis Assessment Notes Treatment Notes Treatment Clinical Notes Feb, C. difficile colitis (ICD-10 - A04.72) [facility] Other 04-17-2023 Evaluation note* Encounter Date Diagnosis Assessment Notes Treatment Notes Treatment Clinical Notes Feb, Gastroesophageal ref lux disease without esophagitis (ICD-10 - K21.9) [facility] Other 04-14-2023 Evaluation note* Encounter Date Diagnosis Assessment Notes Treatment Notes Treatment Clinical Notes Feb, Chronic diarrhea (ICD-10 - K52.9) [facility] Other 04-11-2023 Evaluation note* Encounter Date Diagnosis [...] it really overall has not been helpful. [facility] Other 01-13-2023 Evaluation note* Encounter Date Diagnosis Assessment Notes Treatment Notes Treatment Clinical Notes Nov, Type 2 diabetes mellitus with hyperglycemia, unspecified whether termite helper insulin use (ICD-10 - E11.65) [facility] Other 10-14-2021 Evaluation note* Encounter Date Diagnosis [...] training 6. Follow up in 3 months. [facility] Other Evaluation + Plan note No data available for this section [facility] Evaluation + Plan note Future Appointments Appointment Date:11/06/2024 11:00:00 AM Scheduled Provider: Location:[facility] Appointment Type:URO Nurse Visit Appointment Date:12/08/2024 11:40:00 AM Scheduled Provider:FRANCHESCA PERAZA PA-C Location:[facility] Appointment Type:URO Office Visit Diagnostic Tests Pending * Renal Function Panel 11/04/24 [facility] evaluation + Plan note Future Appointments Appointment Date:12/08/2024 11:40:00 AM Scheduled Provider:FRANCHESCA PERAZA PA-C Location:[facility] Appointment Type:URO Office Visit Appointment Date:12/18/2024 11:20:00 AM Scheduled Provider:FRANCHESCA PERAZA PA-C Location:[facility] Appointment Type:URO Complex Office Visit [facility] evaluation + Plan note Future Appointments Appointment Date:12/18/2024 11:20:00 AM Scheduled Provider:FRANCHESCA PERAZA PA-C Location:[facility] Appointment Type:URO Complex Office Visit [facility] evaluation noteNo InformationNortCeptaris Therapeutics Other evaluation noteNortCeptaris [employer]rapeutics Other Evaluation noteNortCept[employer] Other Evaluation note* Diagnosis Onset Date Resolution Status Chalazion of right eye acute Immunization due acute Urinary incontinence acute [facility] Work Phone: evaluation note* Diagnosis Onset Date Resolution Status Chalazion of right eye acute Immunization due acute Urinary incontinence acute Diabetes mellitus with hyperglycemia acute Hypertension acute Hypothyroidism acute Lumbar spondylosis acute Secondary hyperparathyroidism acute [facility] Work Phone: evaluation note* Diagnosis Onset Date [...] acute Thrush of mouth and esophagus acute [facility] Work Phone: evaluation note* Diagnosis Onset Date [...] IV acute UTI (urinary tract infection) acute [facility] Work Phone: evaluation note* Diagnosis Onset Date [...] acute Thrush of mouth and esophagus acute [id number] acute Secondary hyperparathyroidism acute [facility] Work Phone: Evaluation note* Diagnosis Onset Date [...] acute Thrush of mouth and esophagus acute [id number] acute CKD (chronic kidney disease) stage 3, GFR 30-59 ml/min acute Hyperlipidemia acute [id number] acute Secondary hyperparathyroidism acute Type 2 diabetes mellitus wit h diabetic chronic kidney disease acute Tremor acute [facility] Work Phone: Evaluation note* Diagnosis Onset Date [...] acute Thrush of mouth and esophagus acute [id number] acute CKD (chronic kidney disease) stage 3, GFR 30-59 ml/min acute Hyperlipidemia acute [id number] acute Secondary hyperparathyroidism acute Type 2 diabetes mellitus wit h diabetic chronic kidney disease acute Acute on chronic diastolic C HF (congestive heart failure) acute [id number] acute Tremor acute [id number]-[id number] acute [facility] Work Phone: Evaluation note* Diagnosis Onset Date [...] acute Thrush of mouth and esophagus acute [id number] acute CKD (chronic kidney disease) stage 3, GFR 30-59 ml/min acute Hyperlipidemia acute VWN-[id number] acute Secondary hyperparathyroidism acute Type 2 diabetes mellitus wit h diabetic chronic kidney disease acute Acute on chronic diastolic C HF (congestive heart failure) acute [id number] acute Tremor acute [id number]-ETYR-[id number] acute Mass of right axilla acute [facility] Work Phone: Evaluation note* Diagnosis Onset Date [...] acute Thrush of mouth and esophagus acute [id number] acute CKD (chronic kidney disease) stage 3, GFR 30-59 ml/min acute Hyperlipidemia acute [id number]-KJCG-[id number] acute Secondary hyperparathyroidism acute Type 2 diabetes mellitus wit h diabetic chronic kidney disease acute Acute on chronic diastolic C HF (congestive heart failure) acute [id number] acute Tremor acute PLR-JLUX-[id number] acute Mass of right axilla acute CHF (congestive heart failure) acute Dehydration acute WTK-[id number] acute KSI-DWCS-[id number] acute [facility] Work Phone: Evaluation note* Diagnosis Onset Date [...] acute Thrush of mouth and esophagus acute [id number] acute CKD (chronic kidney disease) stage 3, GFR 30-59 ml/min acute Hyperlipidemia acute [id number]-[id number] acute Secondary hyperparathyroidism acute Type 2 diabetes mellitus wit h diabetic chronic kidney disease acute Acute on chronic diastolic C HF (congestive heart failure) acute [id number]-[id number] acute Tremor acute FKH-HLPT-[id number] acute Back pain with history of spinal surgery acute Cervical disc disease acute CKD (chronic kidney disease), stage IV acute Mass of right axilla acute CHF (congestive heart failure) acute Dehydration acute [id number]-[id number] acute MWK-LDGI-[id number] acute Dysuria acute [facility] Work Phone: Evaluation note* Diagnosis Onset Date Resolution Status Lumbar degenerative disc disease acute Thrush of mouth and esophagus acute [id number] acute CKD (chronic kidney disease) stage 3, GFR 30-59 ml/min acute Hyperlipidemia acute DQM-[id number] acute Secondary hyperparathyroidism acute Type 2 diabetes mellitus wit h diabetic chronic kidney disease acute Acute on chronic diastolic C HF (congestive heart failure) acute [id number] acute Tremor acute KTF-YRCX-50170324 acute Back pain with history of spinal surgery acute Cervical disc disease acute CKD (chronic kidney disease), stage IV acute Mass of right axilla acute CHF (congestive heart failure) acute Dehydration acute FWE-[id number] acute VPK-[id number]-[id number] acute Dysuria acute [facility] Work Phone: Evaluation note* Diagnosis JED (obstructive sleep apnea)- Primary Obstructive sleep apnea (adult) (pediatric) Hypothyroidism (acquired) ([facility]) Unspecified hypothyroidism documented in this [...] History COLONOSCOPY 04/10/2019 Hospitalization History See above [facility] Other Hisptkf general Narrative - Reported* Type Description Date [...] History COLONOSCOPY 04/10/2019 Hospitalization History See above [facility] Other History general Narrative - ReportedNoMimecast Other History general Narrative - ReportedNortCeptaris Therapeutics Other History general Narrative - Reported* Type [...] GERD 2022 Hospitalization History DIABETES ISSUES 2022 [facility] Other Hospital Discharge instructions No data available for this section [facility] Discharge instructionsAmbulatory Orders* Referral to Neurology Time Frame: 06/16/24, Location: None [facility] Work Phone: Hospital Discharge instructionsAmbulatory Orders* Referral to ENT Time Frame: 06/25/24, Location: None [facility] Work Phone: Progress note No data available for this section [facility] Reason for visit Narrative* Consultation (Routine) - Closed Specialty Diagnoses / Procedures Referred By Renetta t Referred To Contact Neurology Diagnoses Tremor, unspecified Procedures CT OFFICE/OUTPATIENT [facility] 30 MINUTES Shantel Steven MD [address] [place] [address] Gio Choe MD [address] [place] [address] Referral ID Status Reason Start Date Expiration Date V isits Requested Visits Authorized [id number] Closed Consult and Treat 06/27/2024 12/24/2024 1 [...] se, stage 4 (severe) (N18.4) Referral Organization [facility] helene Referring Provider First Name Shantel Referring Provider Last Name Tenisha Referring Provider Specialty [facility] Referred Organization [facility] Nephrology Referred Provider Cherie Rapp Referred Address [address] [place], [place],[address] Referred Provider Specialty Nephrology Referral Priority Routine General Notes Mariela Kingston 11:35:41 AM >received today, sent P2P Reason *FU 09/13 lumbar p ain Diagnosis 1 Lumbar degenerative disc disease (M51.36) Referral Organization [facility] helene Referring Provider First Name Shantel Referring Provider Last Name Tenisha Referring Provider Specialty [facility] Referred Organization [facility] Referred Provider Terell Soliz Referred Address [address], [place],[address] Referred Provider Specialty Pain Medic[facility] e Referral Priority Routine General Notes Mariela Kingston 03:09:25 PM >received today, waiting for notes to be locked Mariela Kingston 09/06/2023 10:08:29 AM >notes locked, referral faxed Clinical Notes F: [id number] Reason Poorly controlled di abetes Diagnosis 1 Type 2 diabetes maranda itus with hyperglycemia, unspecified whether residential insulin use (E11.65) Referral Organization [facility] helene Referring Provider First Name Shantel Referring Provider Last Name Tenisha Referring Provider Specialty [facility] [employer] Referred Organization Unknown Facility Referred Provider Joshua Mcconnell Referred Provider Specialty Internal Med icine Referral Priority Routine Reason tremor and memory lo ss - family history of dementia Diagnosis 1 Tremor of both hands (R25.1) Referral Organization [facility] helene Referring Provider First Name Shantel Referring Provider Last Name Tenisha Referring Provider Specialty [facility] [employer] Referred Organization Unknown Facility Referred Provider Emery [...] disc disease Thrush of mouth and esophagus [id number] Secondary hyperparathyroidism Chief Complaint medication review Amb [...] disc disease Thrush of mouth and esophagus PGL-VSKM-[id number] CKD (chronic kidney disease) stage 3, GFR 30-59 ml/min Hyperlipidemia [id number]-[id number] Secondary hyperparathyroidism Type 2 diabetes mellitus with [...] disc disease Thrush of mouth and esophagus QEH-EFBS-37423306 CKD (chronic kidney disease) stage 3, GFR 30-59 ml/min Hyperlipidemia ZVN-[id number]-66739023 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 Acute on chronic diastolic CHF (congestive heart failure) [id number]-[id number]-54540394 Tremor [id number]-[id number] Chief Complaint difficulty swallowin g Amb Documentation [...] disc disease Thrush of mouth and esophagus [id number]-[id number] CKD (chronic kidney disease) stage 3, GFR 30-59 ml/min Hyperlipidemia SJK-DXUC-67500104 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 Acute on chronic diastolic CHF (congestive heart failure) [id number]-48663603 Tremor [id number]-[id number]-[id number] Mass of right axilla Chief Complaint difficulty [...] disc disease Thrush of mouth and esophagus GZP-XLXZ-[id number] CKD (chronic kidney disease) stage 3, GFR 30-59 ml/min Hyperlipidemia YDJ-[id number]-59577210 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 Acute on chronic diastolic CHF (congestive heart failure) YKL-HUMP-39906689 Tremor [id number]-[id number]-[id number] Mass of right axilla Chief Complaint difficulty [...] disc disease Thrush of mouth and esophagus SEA-[id number]-[id number] CKD (chronic kidney disease) stage 3, GFR 30-59 ml/min Hyperlipidemia FIP-BXZO-51621552 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 Acute on chronic diastolic CHF (congestive heart failure) [id number]-LHHV-94004396 Tremor MZJ-QPKH-07258298 Mass of right axilla CHF (congestive heart failure) Dehydration RMG-[id number]-[id number] AVK-[id number]-[id number] Chief Complaint difficulty swallowin g Amb Documentation [...] disc disease Thrush of mouth and esophagus CCX-GFBQ-73743120 CKD (chronic kidney disease) stage 3, GFR 30-59 ml/min Hyperlipidemia UIM-IUUU-93723300 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 Acute on chronic diastolic CHF (congestive heart failure) MJF-MWVD-09344690 Tremor BPC-[id number]-99663831 Back pain with history of spinal surgery Cervical disc disease CKD (chronic kidney disease), stage IV Mass of right axilla CHF (congestive heart failure) Dehydration [id number]-TRTY-99585731 BRY-UUHE-31610649 Dysuria Chief Complaint throat problem SOB RENAL CKD 4 [facility] follow up 3 month f/u Kidney injury, high BP R30.0 UA Amb Documentation [facility] f/u:Pulmonary Adema Reason for Visit Lumbar degenerative disc disease Thrush of mouth and esophagus ICM-[id number]-[id number] CKD (chronic kidney disease) stage 3, GFR 30-59 ml/min Hyperlipidemia JVQ-EMXO-10594986 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 Acute on chronic diastolic CHF (congestive heart failure) [id number] Tremor [id number] Back pain with history of spinal surgery Cervical disc disease CKD (chronic kidney disease), stage IV Mass of right axilla CHF (congestive heart failure) Dehydration [id number] Dysuria Chief Complaint Admit Date gen weakness [...] 025 12:52pm Gastroesophageal reflux disease (GERD) F [facility] 2024 3:21pm [facility] ER:Abd Pain/Chronic Pain January 14, 2025 10:00am [...] 2024 12:52pm GERD (gastroesophageal reflux disease) F [facility] 2024 12:52pm Lumbar degenerative disc disease Februar y 2024 12:52pm Seborrhea capitis in adult December 12:52pm Type 2 diabetes mellitus wit h diabetic chronic kidney disease December 26, 2024 12:52pm Acute on chronic diastolic CHF (congesti ve heart failure) January 06, 2025 3:21pm CKD (chronic kidney disease), stage IV F [facility] 2024 3:21pm GERD (gastroesophageal reflux disease) F [facility] 2024 3:21pm Lumbar degenerative disc disease [...] CREATED AUTHOR AUTHOR'S ORGANIZ ATION 03/10/2023 [facility] DATE CREATED AUTHOR AUTHOR'S ORGANIZ ATION 10/04/2024 [facility] EPIC DATE CREATED AUTHOR AUTHOR'S ORGANIZ ATION 12/04/2024 [facility] DATE CREATED AUTHOR AUTHOR'S ORGANIZ ATION 12/10/2024 [facility] DATE CREATED AUTHOR AUTHOR'S ORGANIZ ATION 12/21/2024 [facility] REASON FOR VISIT (unrecogniz ed section [...] Role Status Cecille Setven MD Primary Care Provider Active Start: November [...] Team Status: Inactive Member Role Status Cecille Stveen MD Primary Care Provide r, Attending Provider [...] MD Other Provider Active Start: 2023 Renetta Trivdei MD Other Provider Active Start: October 17, [...] End: January 18, 2024 Franchesca Sullivan APRN MONOLOGIST-C Attending Provider Act chiqui Start: January 18, [...] August 07, 2024 End: August 07, 2024 Billposting Supervisor Relationship Specialty Start Date End Date Shantel Steven MD [address] [facility] [place] [phone] PCP - General Family Medicine 06/25/24 Billposting Supervisor Relationship Specialty Start Date End Date Shantel Steven MD [address] [place] [phone] PCP - General Family Medicine 06/25/24 Billposting Supervisor Relationship Specialty Start Date End Date Shantel Steven MD [address] [facility] [place] [phone] PCP - General Family Medicine 06/25/24 Billposting Supervisor Relationship Specialty Start Date End Date Shantel Steven MD [address] [place] [phone] PCP - General Family Medicine 06/25/24 Billposting Supervisor Relationship Specialty Start Date End Date Shantel Steven MD [address] [facility] [place] [phone] PCP - General Family Medicine 06/25/24 Billposting Supervisor Relationship Specialty Start Date End Date Shantel Steven MD [address] [facility] [place] [phone] PCP - General Family [facility] 06/25/24 Billposting Supervisor Relationship Specialty Start Date End Date Shantel Steven MD [address] [facility] [place] [phone] PCP - General Family [facility] 06/25/24 Billposting Supervisor Relationship Specialty Start Date End Date Shantel Steven MD [address] [facility] [place] [phone] PCP - General Family Medicine 06/25/24 Team [...] BE BASED ON THE PRIMARY CLINICAL RECORDS. [facility]. provides no warranty or guarantee of the accuracy or completeness of information in this document.
--- NOTE | 2025-01-25 08:25 | P.HP_ITS ---
HPI H&P: HPI History of Present Illness Chief complaint: sob, PLEURAL EFFUSION, CHF, HYPOKALEMIA Narrative: Patient is a 79-year-old female with past medical history of type 2 diabetes insulin-dependent, atrial fibrillation on chronic anticoagulation, hyperlipidemia, GERD, hypothyroidism, hypertension, Prior Mastectomy with left sided Lymphedema, who presented to the Emergency Room early this morning with shortness of breath that has been worsening over the last 2 weeks. She also notes bilateral lower extremity edema and epigastric pain. Patient has history of CHF and has been admitted several times to our facility for acute CHF symptoms. 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 Cuevas, and she also sees [facility] cardiology. she reports she has been compliant with medications and her last ha1c was down to 7.2. She has loose stools daily but this has been going on for 3 years. She said last night she felt very short of breath while trying to sleep so her brought her to the ER. ER findings: Chest X-ray showed left pleural effusion with pulmonary vascular congestion, ProBNP 7089, Cr 1.49, BUN 22, Trop 34.7, K 2.7, mag 1.2; Respiratory Rate was 26, BP elevated at 189/80. She was given potassium oral replacement of 40 MEQ x 1 and Lasix 40mg IV x 1 and admitted to the hospitalist service for acute exacerbation of Chronic Congestive heart failure and epigastric pain. Opioid HPI Opioid Management Most Recent Pain and Opioid Data: Last Pain Scale 3 07/29/24 10:03 07/29/24 Last Pain Intensity 3 06/09/24 13:07 06/09/24 Last Pain Assessment 01/25/25 09:42 Last ORT Total Score 0 01/25/25 07:49 01/25/25 Last ORT Risk Category Low Risk 01/25/25 07:49 01/25/25 Review of Systems ROS Narrative ROS: a complete review of systems were reviewed with patient and are positive as below or listed in History of Chief Complaint. General: no fever, chills, night sweats Head: no headache, trauma, visual changes, nausea or vomiting Skin: no reported rashes, itching or sores Eyes: no blurriness of vision Ears: no reported hearing loss, vertigo, earache, or tinnitus Throat: no sore throat, hoarseness, swelling of neck, or tongue pain Heart: no chest pain Lungs: shortness of breath no cough GI: diarrhea no vomiting/nausea, epigastric pain Urinary: no urinary urgency, frequency or pain Neuro: no numbness or tingling HEM: no bleeding issues or bruising ENDO: thyroid problems Psych:anxiety and depression [facility] Medical History (Updated 01/25/25 @ 11:04 by Martine Ledesma, ) GERD without esophagitis ?K21.9 - Gastro-esophageal reflux disease without esophagitis (ICD-10) Anxiety ?F41.9 - Anxiety disorder, unspecified (ICD-10) Intermittent palpitations ?R00.2 - Palpitations (ICD-10) Acute hyperglycemia ?R73.9 - Hyperglycemia, unspecified (ICD-10) Acute kidney injury ?N17.9 - Acute kidney failure, unspecified (ICD-10) Uncontrolled diabetes mellitus Acute on chronic clinical systolic heart failure ?I50.23 - Acute on chronic systolic (congestive) heart failure (ICD-10) Acute renal failure ?N17.9 - Acute kidney failure, unspecified (ICD-10) Hyperkalemia ?E87.5 - Hyperkalemia (ICD-10) Acute dehydration ?E86.0 - Dehydration (ICD-10) CKD stage 3a, GFR 45-59 ml/min ?N18.31 - Chronic kidney disease, stage 3a (ICD-10) Diabetes mellitus with hyperglycemia, with long-term current use of insulin ?E11.65 - Type 2 diabetes mellitus with hyperglycemia (ICD-10) ?Z79.4 - FDC (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9 - Obesity, unspecified (ICD-10) Surgical History History of cholecystectomy ?Z90.49 - Acquired absence of other specified parts of digestive tract (ICD- 10) History of appendectomy ?Z90.49 - Acquired absence of other specified parts of digestive tract (ICD- 10) History of hysterectomy ?Z90.710 - Acquired absence of both cervix and uterus (ICD-10) H/O lumbosacral spine surgery ?Z98.890 - Other specified postprocedural states (ICD-10) H/O bilateral mastectomy ?Z90.13 - Acquired absence of bilateral breasts and nipples (ICD-10) Family History Other Family history of CHF (congestive heart failure) Family history of cancer Family history of diabetes mellitus Family history of hypertension H/O mastectomy Social History Within the past year, how often did you have a drink containing alcohol: never Within the past year, how often did you have six or more drinks on one occasion: never Score interpretation: A score less than 3 is consistent with normal alcohol consumption. 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 Highest level of school completed/degree received: some college, no degree Do you want help with school or training: No Are you now , , , , never or living with a partner: In a typical week, how many times do you talk on the telephone with family, friends, or neighbors: twice per week How often do you get together with friends or relatives: twice per week How often do you attend islam or episcopalian services: never Do you belong to any clubs or organizations such as islam groups unions, fraternal or athletic groups, or school groups: no Total score: 2 Score interpretation: A score of greater than or equal to 2 indicates the lowest level of social isolation. Little interest or pleasure in doing things: not at all Feeling down, depressed, or hopeless: not at all Feel stressed/tense/nervous/anxious/difficulty sleeping: not at all Due to disability, difficulty making decisions: No Do you think of yourself as: straight/heterosexual Gender Identity: female Meds Home Medications and Allergies Home Medications ?Medication ?Instructions ?Recorded ?Confirmed ?Type insulin glargine 100 unit/mL (3 20 unit subcut BEDTIME 04/25/23 01/25/25 History mL) subcutaneous pen (Lantus Solostar U-100 Insulin) metoprolol tartrate 100 mg tablet 150 mg PO BID 04/25/23 01/25/25 History alprazolam 0.25 mg tablet 0.25 mg PO TID PRN anxiety 04/30/24 01/25/25 History levothyroxine 125 mcg tablet 125 mcg PO .acb 04/30/24 01/25/25 History oxycodone-acetaminophen 5 mg-325 1 tab PO DAILY PRN pain 04/30/24 01/25/25 History mg tablet insulin NPH isoph U-100 human 100 1 unit subcut ACHS 06/09/24 01/25/25 History unit/mL (3 mL) subcutaneous pen (Novolin N FlexPen) atorvastatin 20 mg tablet 20 mg PO QPM 06/18/24 01/25/25 History biotin 10,000 mcg disintegrating 10,000 mcg PO DAILY 06/18/24 01/25/25 History tablet cholecalciferol (vitamin D3) 125 125 mcg PO DAILY 06/18/24 01/25/25 History mcg (5,000 unit) tablet (Vitamin D3) lisinopril 10 mg tablet 10 mg PO DAILY 06/18/24 01/25/25 History rivaroxaban 20 mg tablet (Xarelto) 20 mg PO DAILY 06/18/24 01/25/25 History vit C 226 mg-vit E 90 mg-copper 1 cap PO BID 06/18/24 01/25/25 History 0.8 mg-zinc oxide-lutein 5 mg capsule (PreserVision Lutein) diltiazem HCl 120 mg 120 mg PO .QD 07/14/24 01/25/25 History capsule,extended release 24 hr famotidine 20 mg tablet 20 mg PO .qhs 07/24/24 01/25/25 History omeprazole 40 mg capsule,delayed 40 mg PO .acb 07/24/24 01/25/25 History release spironolactone 25 mg tablet 25 mg PO DAILY #30 tabs 07/25/24 01/25/25 Rx (Aldactone) buspirone 5 mg tablet 5 mg PO BID 01/25/25 01/25/25 History duloxetine 20 mg capsule,delayed 20 mg PO DAILY 01/25/25 01/25/25 History release ketoconazole 2 % shampoo 1 applic topical .2 TIMES WEEK 01/25/25 01/25/25 History propranolol 40 mg tablet 40 mg PO BID 01/25/25 01/25/25 History sucralfate 1 gram tablet 1 g PO AC 01/25/25 01/25/25 History Allergies Allergy/AdvReac Type Severity Reaction Status Date / Time Iodinated Contrast Media Allergy Intermediate Hives Verified 01/25/25 04:04 shellfish derived Allergy Intermediate Hives Verified 01/25/25 04:04 Sulfa (Sulfonamide Allergy Rash Verified 01/25/25 04:04 Antibiotics) Exam Narrative Exam Narrative: General: Patient is alert, and oriented to person, place and time with normal affect, proper hygiene, morbid obesity Skin: yeast excoriated rash noted in the abdominal folds and groin, extensive Head: atraumatic, acephalic Eyes: PERRLA, no nystagmus present, conjunctiva clear, no scleral icterus Ears: normal gross auditory acuity Nose: symmetric, no discharge, no maxillary or frontal sinus tenderness Mouth/Throat: no erythema, exudate, or tonsillar enlargement, normal dentition Neck: no masses palpated, normal thyroid Heart: Normal rate and rhythm, no murmurs/rubs/gallops Lungs: no audible wheezes, crackles and diminished breath sounds in lung bases Abdomen: Normal audible bowel sounds, no distension, No palpable masses, no organomegaly, no rebound/guarding/ or rigidity; central obesity Musculoskeletal: +1 swelling bilateral feet and hands; patient has significant lymphedema on the left arm and leg Neuro: CN II-X grossly intact Constitutional Vital Signs, click to edit/add: Last Vital Signs Temp 97.7 F 01/25/25 07:49 Pulse 59 L 01/25/25 07:49 Resp 18 01/25/25 07:49 BP 198/80 H 01/25/25 07:49 Pulse Ox 97 01/25/25 07:49 O2 Del Method Nasal Cannula 01/25/25 07:49 O2 Flow Rate 2 01/25/25 07:49 Results Labs Labs: Short CBC 01/25/25 Range/Units 04:10 WBC 7.5 (4.0-11.0) 10^3/uL Hgb 12.7 (12.0-16.0) g/dL Hct 38.5 (36.0-48.0) % Plt Count 229 (150-450) 10^3/uL BMP 01/25/25 04:10 Sodium 144 Potassium 2.7 L* Chloride 104 Carbon Dioxide 34.6 H BUN 22.0 H Creatinine 1.49 H Glucose 121 H Calcium 8.1 L Assessment and Plan Assessment and Plan (1) Acute on chronic clinical systolic heart failure: Assessment and Plan: monitor strict I's and O's, fluid restriction of fifteen hundred mL's, daily weights. Chest x-ray consistent with left pulmonary edema, elevated proBNP 7089, monitor the need for oxygen as patient is tachypneic. Will continue careful diuresis with Bumex 1mg IV BID. (2) Hypokalemia: Assessment and Plan: will recheck this 1700, continue Klor-con 20Meq BID (3) Hypomagnesemia: Assessment and Plan: replace with 4grams IV x 1 (4) GERD with esophagitis: Assessment and Plan: start IV protonix 40mg BID, and oral pepcid Qualifiers: Esophagitis bleeding: unspecified whether hemorrhage Qualified Code(s): K21.00 - Gastro-esophageal reflux disease with esophagitis, without bleeding (5) Yeast dermatitis: Assessment and Plan: apply topical Nystatin (6) CKD stage 3a, GFR 45-59 ml/min: Assessment and Plan: Cr was 1.49 which is around patient's baseline. Monitor closely with diuresis (7) Diabetes mellitus with hyperglycemia, with long-term current use of insulin: Assessment and Plan: continue long acting insulin and also Sliding scale as needed. 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 (9) Hypothyroidism (acquired): Assessment and Plan: continue levothyroxine, recheck TFT's in the morning (10) Hypertension: Assessment and Plan: resume home meds. Qualifiers: Hypertension type: primary hypertension Qualified Code(s): I10 - Essential (primary) hypertension (11) Obesity: Assessment and Plan: would benefit from weight loss reduction Qualifiers: Body mass index: BMI 40.0-44.9 Obesity classification: adult class 3 (BMI >= 40) Obesity type: due to excess calories Serious obesity comorbidity presence: with serious comorbidity Qualified Code(s): E66.01 - Morbid (severe) obesity due to excess calories; Z68.41 - Body mass index [BMI] 40.0-44.9, adult (12) Anxiety: Assessment and Plan: continue duloxetine, Xanax, and buspar as needed. (13) Chronic diarrhea: Assessment and Plan: will check stool sample as patient has significant electrolyte abnormalities. Check For C diff. Plan Patient is a full code continue Xarelto for DVT prophylaxis patient is observation status and is not expected to cross 2 midnights for her treatment of acute on Chronic CHF.
[2025-01-25 09:34] LABS: Magnesium 1.2 mg/dL (1.8-2.4); Troponin I High Sensitivity 28.4 pg/mL (4.0-51.3)
[2025-01-25] MEDS: VITS A,C,E/LUTEIN/MINERALS 1 TABLET 1 TAB PO ×2 (09:39→22:50)
[2025-01-25] MEDS: SUCRALFATE 1 GM TABLET PO ×3 (09:39→16:36)
[2025-01-25] MEDS: BUSPIRONE HCL 10 MG TABLET 5 MG PO ×2 (09:40→22:47)
[2025-01-25] MEDS: CHOLECALCIFEROL (VITAMIN D3) 125 MCG/5,000 UNIT TABLET PO (09:40)
[2025-01-25] MEDS: SPIRONOLACTONE 25 MG TABLET PO (09:40)
[2025-01-25] MEDS: LISINOPRIL 10 MG TABLET PO (09:40)
[2025-01-25] MEDS: METOPROLOL TARTRATE 100 MG TABLET 150 MG PO (09:41)
[2025-01-25] MEDS: DULOXETINE HCL 20 MG CAPSULE.DR PO (09:42)
[2025-01-25] MEDS: FAMOTIDINE 20 MG TABLET PO ×2 (09:42→22:50)
[2025-01-25] MEDS: POTASSIUM CHLORIDE 10 MEQ ER TABLET 20 MEQ PO ×2 (09:42→22:48)
[2025-01-25 09:43] LABS: TSH W/ REFLEX FT4 6.107 uIU/mL (0.358-3.740)
[2025-01-25 10:02] LABS: Free T4 1.65 ng/dL (0.76-1.46)
[2025-01-25] MEDS: DILTIAZEM HCL 120 MG CAP.ER.24H PO (10:03)
[2025-01-25] MEDS: NYSTATIN 15 GM POWDER 1 APPLIC TOPICAL ×2 (11:36→22:49)
[2025-01-25] MEDS: MAGNESIUM SULFATE IN WATER 2 GM/50 ML PREMIX IV (11:36)
[2025-01-25] MEDS: PANTOPRAZOLE SODIUM 40 MG VIAL IV ×2 (11:36→22:46)
[2025-01-25 11:42] LABS: Glucometer 115 mg/dL (74-106)
[2025-01-25 14:10] LABS: C. Difficile PCR NEGATIVE
[2025-01-25 15:07] LABS: Glucometer 133 mg/dL (74-106)
[2025-01-25] MEDS: BUMETANIDE 1 MG/4 ML VIAL IVP (17:21)
[2025-01-25 17:27] LABS: Potassium 3.1 mmol/L (3.5-5.1)
[2025-01-25 20:54] LABS: Glucometer 161 mg/dL (74-106)
[2025-01-25] MEDS: PROPRANOLOL HCL 20 MG TABLET 40 MG PO (22:48)
[2025-01-25] MEDS: RIVAROXABAN 10 MG TABLET 20 MG PO (22:55)
[2025-01-25] MEDS: ACETAMINOPHEN 325 MG TABLET 650 MG PO (22:55)
[2025-01-25] MEDS: ATORVASTATIN CALCIUM 20 MG TABLET PO (22:55)
[2025-01-25] MEDS: ALPRAZOLAM 0.25 MG TABLET PO (22:55)
[2025-01-25] MEDS: INSULIN GLARGINE 300 UNIT/3 ML INSULN.PEN 20 UNIT SQ (23:12)
[2025-01-26] VITALS (20 sets, daily range): BP systolic 130–148; BP diastolic 59–82; PULSE 56–81; TEMP 36.3–36.7; O2SAT 86–94
--- OUTSIDE RECORDS SUMMARY | 2025-01-26 06:10 | XMS_ITS | CCD ---
Author Organization [facility] CliniSyfl Care Team Providers Care Computer Analyst Supervisor Name Role Phone UNKNOWN, PROVIDER Unavailable [...] Care Provider MD Shantel Steven Other Provider [phone] MD Eloina Hussein Attending Provider MD Eloina Hussein Referring Provider DO Jorge Luis Zavala Emergency Provider [phone] MD Shantel Steven Primary Care Provider DO Jorge Luis Zavala Emergency Provider MD Shantel Steven Primary Care Provider [phone] MD Shantel Steven Attending Provider MD Shantel Steven Attending Provider Steven Shantel ESCOBAR Primary Care Provider [phone] LIZETT JACINTO Attending Unavailable SHANTEL STEVEN Referring [...] Provider Shantel Steven MD Primary Care Provider [phone] Mauri Chavira DO Admit Provider Ange Vergara [...] Drugs) Drug allergy (disorder) 03-04-20 12 [facility] Repository (20 sources) Shellfish; Translations: [Shellfish] Food allergy (disorder) 03-04-20 12 rash, Eruption of skin (disorder) [facility] Rep[facility] (20 sources) Sulfonamides (Antibiotic); Translations: [SULFA (SULFONAMIDE ANTIBIOTICS)] Drug allergy (disorder) 03-04-20 12 Rash [facility] Repository (20 sources) Sulfacetamide Drug Allergy 02-15-20 24 diarrhea [facility] (20 sources) Contrast media; Translations: [contrast media (iodine-based)] Drug allergy 02-15-20 24 Unknown (qualifier value), Rash [facility] (6 sources) Sulfonamides (Antibiotic); Translations: [sulfa drugs] Drug allergy Diarrhea (finding) [facility] (2 sources) Glucosamine Drug Allergy [facility] Repository (2 sources) Iodine (And Iodine Containting Drugs) Drug allergy (disorder) 08-09-[address] [facility] Repository (11 sources) Contrast media Propensity to adverse reactions 11-18-[address] DYE [facility] [email or web address] Other (20 sources) Iodine; Translations: [IODINE] Drug Allergy 10-30-20 14 Other, Unknown [employer] Other (20 sources) Substance with sulfonamide structure and antibacterial mechanism of action (substance) Drug allergy 10-30-20 14 Unknown [employer] Other (11 sources) Dyes Propensity to adverse reactions Comment:CT Dyes,Dyes,IVP Dyes [facility] [email or web address] Other (19 sources) Shellfish; Translations: [SHELLFISH DERIVED] Allergy to substance 10-30-20 14 [facility] (19 sources) Iodinated Contrast Media; Translations: [IODINATED CONTRAST MEDIA] Allergy to substance 02-15-20 24 [facility] (12 sources) metFORMIN Drug Allergy 07-03-20 24 [facility] (6 sources) Chocolate Flavoring Agent (Non-Screening) Propensity to adverse reactions 01-17-20 23 [facility] Work Phone: (12 sources) Shellfish-Derive d Products Drug Intolerance 03-15-20 18 [facility] (7 sources) Chocolate; Translations: [CHOCOLATE FLAVOR] Propensity to adverse reactions 01-17-20 23 [facility] [employer] Work Phone: (1 source) Sulfacetamide Drug Allergy 11-11-20 [facility] Repository (1 source) Sulfonamides (Antibiotic) Drug allergy (disorder) 11-11-20 [facility] Repository Medications Current Medications Medication [...] once daily Biotin 10,000 mcg capsule Discontinued 48636 MCG PO daily June 05, 2024 12:00am November 03, 2024 12:41pm Start: 01-17-2024 End: 04-03-2024 take 1 capsule by mouth once daily Biotin 5 mg capsule Discontinued 5 MG PO Daily January 17, 2024 1:00am April 03, 2024 11:46am take 1 capsule by [facility] every twenty-four hours Biotin 5 MG [...] 05, 2024 12:02pm take 1 capsule by [facility] every twenty-four hours Vitamin D3 125 MCG (5000 UT) 1 capsule Orally Once a day Active take 1 capsule by [facility] every twenty-four hours Vitamin D3 25 MCG (1000 UT) 1 capsule Orally Once a day Active cholestyramine resin 4000 mg powder for oral suspension (5 sources) Bile Acid Sequestrant Start: 03-07-2021 Questran 4 g/9 g ora l powder = 1 packet(s), Oral, Daily, # 30 EA, Refills(s) 11, Pharmacy: [email or web address], 165.1, cm, 03/07/21 13:49:00 EDT, Height/Length Dosing, 121.8, kg, 03/07/21 13:49:00 EDT, Weight Dosing Start Date: 03/07/21 Status: Ordered Start: 03-07-2021 Questran 4 g/9 g oral powder = 1 packet(s), Oral, Daily, # 30 EA, Refills(s) 11, Pharmacy: [email or web address], 165.1, cm, 03/07/21 13:49:00 EDT, Height/Length [...] Ordered Start: 06-19-2021 take 1 capsule by [facility] once daily Diltiazem Hcl 120 mg capsule,extended release 24hr Active 120 MG PO Daily June 19, 2021 12:00am End: 07-22-2024 take 1 tablet by mouth in the morning dilTIAZem (Cardizem) 120 MG immediate release tablet Take 120 mg by mouth in the morning. 07/22/2024 Discontinued (Duplicate order) take 1 capsule by mo [facility] every twelve hours dilTIAZem HCl ER [...] 3:14pm Start: 01-07-2023 take 1 tablet by [facility] every twenty-four hours Famotidine 20 MG 1 tablet at bedtime as needed Orally Once a day for 30 days Dec, Active Fish Oils (20 sources) Start: 07-27-2022 Fish Oil Refil l(s) 0 Start Date: 07/27/22 Status: Ordered take 1 capsule by mouth once jagjit ly Fish Oil 1200 MG 1 capsule Orally Once a day Active take 1 capsule by mouth once jagijt ly Fish Oil 1000 MG 1 capsule Orally Once a day Active Flash Glucose Scanning Reade r ([employer]estyle Familia 2 [place]) misc (7 sources) Start: 09-10-2024 Flash Glucose Scanning [place] (Freestyle Familia 2 [place]) misc Active 0 .Route 1 September 10, 2024 8:12am As directed Start: 09-10-2024 Flash Glucose Scanning [place] (Freestyle Familia 2 [place]) misc Active 0 .Route 1 September 10, 2024 7:12am As directed Start: 07-16-2024 End: 09-10-2024 Flash Glucose Scanning [place] r (Freestyle Familia 2 [place]) misc Discontinued 0 .Route July 16, 2024 12:00am September 10, 2024 8:13am As directed Start: 07-16-2024 End: 09-10-2024 Flash Glucose Scanning [place] r (Freestyle Familia 2 [place]) misc Discontinued 0 .Route July 15, 2024 11:00pm September 10, 2024 7:13am As directed Start: 07-16-2024 Flash Glucose Scanning [place] (Freestyle Familia 2 [place]) misc Active 0 .Route 1 July 16, [...] capsule Orally Once a day Active Vitamins A,C,Q-Anwo-Mqjemw (Preservision Areds) 4,296 mcg-226 mg-90 mg capsule (14 sources) Start: 01-17-2024 take 1 capsule by mouth twice daily Vitamins A,C,Q-Xvmv-Xpyzct (Preservision Areds) 4,296 mcg-226 mg-90 mg capsule Active 1 CAP PO Twice daily January 17, 2024 12:00am Start: 01-17-2024 take 1 capsule by mo uth twice daily Vitamins A,C,K-Jssv-Lgzcez (Preservision Areds) 4,296 mcg-226 mg-90 mg capsule [...] 19, 2021 3:13am Start: 06-12-2021 End: 06-19-2021 [id number] 200 actuat albuterol 0.09 mg/actuat metered dose [...] bedtime Orally Once a day Not-Taking amylase 777568 unt / lipase 97615 unt / protease 49212 unt delayed release oral capsule (20 sources) Start: End: Krjily-Zsjfokiq-Ccl lase (Creon) 24,000-76,000 -120,000 unit capsule,delayed release(DR/EC) Discontinued 1 - 2 CAP PO 1-2 TIMES DAILY June 11, 2021 12:00am June 19, 2021 3:12am Start: 06-11-2021 End: 06-19-2021 Start: 05-10-2021 Creon 24,000 u nits oral delayed release capsule See Instructions, take 3 caps with each meal and 2 caps with each snack., # 390 caplet(s), Refills(s) 0, Pharmacy: [email or web address], 165.1, cm, 04/18/21 13:02:00 EDT, Height/Length [...] by joesph th every twenty-four hours nystatin 149359 unt/ml topical cream (20 sources) Polyene Antifungal [...] application topically if needed 06/05/2024 Active Nystatin 466163 UNIT/GM 1 application Externally Twice a day for 10 days Active Nystatin 182624 UNIT/GM 1 application Externally Twice a day for 10 days Active nystatin 296468 unt/ml / triamcinolone acetonide 1 mg/ml topical [...] June 05, 2024 11:06am swish and swallow Swink 5-Agr-Twe-Fish Oil (Fish Oil) 1,000 mg (120 mg-180 mg) capsule (14 sources) Start: 01-17-2024 End: 04-03-2024 take 1 capsule by mouth once daily Swink 1-Ftm-Qfu-Fish Oil (Fish Oil) 1,000 mg (120 mg-180 mg) capsule Discontinued 1 CAP PO Daily January 17, 2024 12:00am April 03, 2024 10:49am Start: 01-17-2024 End: 04-03-2024 take 1 capsule by mouth once daily Swink 2-Vgh-Dxt-Fish Oil (Fish Oil) 1,000 mg (120 mg-180 mg) capsule Discontinued 1 CAP PO Daily January 17, 2024 1:00am April 03, 2024 11:49am Start: 01-17-2024 take 1 capsule by mo [facility] once daily Swink 5-Rlb-Zmz-Fish Oil (Fish Oil) 1,000 mg (120 mg-180 [...] Start: 10-25-2024 End: 11-03-2024 Sodium Chloride (Nasal [place] (Sodium Chloride)) 0.65 % aerosol,spray Discontinued 1 [...] 07, 2024 12:01pm take 1 tablet by [facility] every twenty-four hours Spironolactone 25 MG 1 [...] Coronary arteriosclerosis; Translations: [Atherosclerotic heart disease of [place] coronary artery without angina pectoris] Onset: 2 [...] sources) Long-term current use of insulin; Translations: [rn long term care (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 insulin] Onset: 4 Resolved: 4 01-17-2024 Episodic Other aftercare (5 sources) halfway (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 insulin; Translations: [TRANSMISSION MECHANIC CURRENT USE OF INSULIN] Onset: 3 Episodic Other aftercare (1 source) Other superintendent terminal (current) drug therapy; Translations: [OTH TRANSMISSION MECHANIC CURRENT DRUG THERAPY] Onset: 3 Episodic Other aftercare (1 source) halfway (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 anticoagulants; Translations: [MCC CURRNT [...] Basophils (Bld) [#/Vol] Automated basophil count 0.0-0.1 [facility] Basophils/100 WBC Auto (Bld) on 12-04-2024 Basophils/100 WBC (Bld) Automated basophil % 0.2-2.0 [facility] Eosinophils/100 WBC Auto (Bl d)on 12-04-2024 Eosinophils/100 WBC (Bld) Automated eosinophil % 0.9-7.0 [facility] Erythrocyte distribution wid th Auto (RBC) [Ratio]on 12-04-2024 Erythrocyte distribution width (RBC) [Ratio] Erythrocyte distribution width [Ratio] by Automated count 11.0-15.0 [facility] Estimated glomerular filtrat ion rate (GFR) non- Americanon 12-04-2024 GFR/1.73 sq M.predicted among non-blacks MDRD (S/P/Bld) [Vol rate/Area] Estimated glomerular filtration rate (GFR) non- Low >=60 mL/min/1.73 m 2 [facility] Globulin Calc (S) [Mass/Vol] on 12-04-2024 Globulin (S) [Mass/Vol] Serum globulin measurement by calculation (mass/volume) [facility] Hematocrit Auto (Bld) [Volum e fraction]on 12-04-2024 Hematocrit (Bld) [Volume fraction] Hematocrit [Volume Fraction] of Blood by Automated count 36.0-48.0 [facility] Hemoglobin [Mass/volume] in Bloodon 12-04-2024 Hemoglobin (Bld) [Mass/Vol] Hemoglobin [Mass/volume] in Blood Low 12.0-16.0 [facility] INR in Platelet poor plasma by Coagulation assayon 12-04-2024 INR Coag (PPP) [Relative time] INR in Platelet poor plasma by Coagulation assay [facility] Comment on above: DESIRED INR:2.0-3.0 CONDITIONS NOT LISTED BELOW2.5-3.5 FOR PROSTHETIC HEART VALVE REPLACEMENT2.5-3.5 RECURRENT THROMBOSIS Laboratory - Chemistry and C hemistry - challengeon 12-04-2024 Albumin [Mass/Vol] 2.7 g/dL Low 3.4-5.0 [facility] ALP [Catalytic activity/Vol] 111 U/L 46-116 [facility] ALT [Catalytic activity/Vol] 19 U/L 14-59 [facility] AST [Catalytic activity/Vol] 16 U/L 15-37 [facility] Bilirubin [Mass/Vol] 0.6 mg/dL 0.2-1.0 [facility] Calcium [Mass/Vol] 8.7 mg/dL 8.5-10.1 [facility] Chloride [Moles/Vol] 101 mmol/L 98-107 [facility] CO2 [Moles/Vol] 29.9 mmol/L 21.0-32.0 [facility] Creatinine [Mass/Vol] 1.24 mg/dL High 0.55-1.02 [facility] GFR/1.73 sq M.predicted MDRD (S/P/Bld) [Vol rate/Area] 51 mL/min/{1.73_m2} Low >=60 mL/min/1.73 m 2 [facility] Glucose [Mass/Vol] 310 mg/dL High 74-106 [facility] Natriuretic peptide B (Bld) [Mass/Vol] 3884.0 pg/mL Critically high <=1800.0 [facility] Comment on above: RESULTS CALLED TO MAIK RANGEL RN Potassium [Moles/Vol] 4.3 mmol/L 3.5-5.1 [facility] Protein [Mass/Vol] 7.0 g/dL 6.4-8.2 [facility] Sodium [Moles/Vol] 138 mmol/L 136-145 [facility] Urea nitrogen [Mass/Vol] 28.0 mg/dL High 7.0-18.0 [facility] Urea nitrogen/Creatinine [Mass ratio] 22.6 mg/mg [facility] Laboratory - Hematology and Cell countson 12-04-2024 Immature granulocytes/100 WBC (Bld) 0.2 % 0.0-0.5 [facility] Leukocytes [#/volume] correc gali for nucleated erythrocytes in Blood by Automated counon 12-04-2024 WBC corrected for nucl RBC Auto (Bld) [#/Vol] Leukocytes [#/volume] corrected for nucleated erythrocytes in Blood by Automated coun 4.0-11.0 [facility] Lymphocytes Auto (Bld) [#/Vo l]on 12-04-2024 Lymphocytes (Bld) [#/Vol] Lymphocytes [#/volume] in Blood by Automated count 1.2-3.8 [facility] Lymphocytes/100 WBC Auto (Bl d)on 12-04-2024 Lymphocytes/100 WBC (Bld) Lymphocytes/100 leukocytes in Blood by Automated count Low 20.5-60.0 [facility] MCH Auto (RBC) [Entitic mass ]on 12-04-2024 MCH (RBC) [Entitic mass] MCH [Entitic mass] by Automated count 26.7-34.0 [facility] MCHC Auto (RBC) [Mass/Vol]on 12-04-2024 MCHC (RBC) [Mass/Vol] MCHC [Mass/volume] by Automated count 29.9-35.2 [facility] MCV Auto (RBC) [Entitic vol] on 12-04-2024 MCV (RBC) [Entitic vol] MCV [Entitic volume] by Automated count 81.0-99.0 [facility] Monocytes Auto (Bld) [#/Vol] on 12-04-2024 Monocytes (Bld) [#/Vol] Automated blood monocyte count 0.3-0.8 [facility] Monocytes/100 WBC Auto (Bld) on 12-04-2024 Monocytes/100 WBC (Bld) Automated monocyte % 1.7-12.0 [facility] Neutrophils Auto (Bld) [#/Vo l]on 12-04-2024 Neutrophils (Bld) [#/Vol] Neutrophils [#/volume] in Blood by Automated count 1.4-6.5 [facility] Neutrophils/100 WBC Auto (Bl d)on 12-04-2024 Neutrophils/100 WBC (Bld) Automated neutrophil % 43.0-75.0 [facility] No Panel Informationon 12-04 Eosinophils # (Auto) 0.1 10 3/uL 0.0-0.7 [facility] Immature Granulocyte # (Auto) 0.02 10 3/uL 0.00-0.03 [facility] Troponin I High Sensitivity 19.6 pg/mL 4.0-51.3 [facility] Comment on above: CUT-OFF POINTS [...] volume] in Blood by Automated count 9.5-13.5 [facility] Platelets Auto (Bld) [#/Vol] on 12-04-2024 Platelets (Bld) [#/Vol] Platelets [#/volume] in Blood by Automated count 150-450 [facility] Prothrombin time (PT)on 11-13 PT Coag (PPP) [Time] Prothrombin time (PT) High 9.0- 11.6 [facility] RBC Auto (Bld) [#/Vol]on RBC (Bld) [#/Vol] Erythrocytes [#/volu me] in Blood by Automated count Low 4.20-5.40 [facility] Serum or plasma albumin/glob ulin mass ratioon 12-04-2024 Albumin/Globulin [Mass ratio] Serum or plasma albumin/globulin mass ratio [facility] Serum or plasma anion gap de terminationon 12-04-2024 Anion gap [Moles/Vol] Serum or plasma an ion gap determination [facility] Office Visiton 12-02-2024 Follow-up visit [id number] Joe Call 1945 F Date Provider Department Center 12/02/2024 [id number] ULNA LOVE Bruno Family History Problem Relation Age of Onset Coronary artery disease Other Diabetes Other Polycystic kidney disease Other Family Status - Relation Status Age at Other Level of Service:40199 MI OFFICE/OUTPATIENT ESTABLISHED MOD MDM 30 MIN Reason for Visit and Comments: Atrial Fibrillation [80] Congestive Heart Failure [127] - Had BMP 3 weeks ago. Taking lasix PRN. Hypertension [530407] Bradycardia [994248] Normal [facility] 36on 11-18-2024 36 Regarding lab result s from 11/03/2024: MD Brooke Sawyer MA Creatinine appears to be better. Patient's made aware. [facility] Ambulatory Visit Summaryon 0 11-13-2024 Ambulatory Visit [...] FRANCHESCA PERAZA PA-C Where: [facility] [address] [place] [address] [place] [address]- 2024 11:20 AM EST With: FRANCHESCA PERAZA PA-C Where: [facility] [address] [place] [address] [place] [address]- Medications What How Much When Why Instructions [...] for choosing us for your care. Normal [facility] Estimated glomerular filtrat ion rate (GFR) non- Americanon 11-10-2024 GFR/1.73 sq M.predicted among non-blacks MDRD (S/P/Bld) [Vol rate/Area] Estimated glomerular filtration rate (GFR) non- Low >=60 mL/min/1.73 m 2 [facility] Laboratory - Chemistry and C hemistry - challengeon 11-10-2024 Albumin [Mass/Vol] 3.0 g/dL Low 3.4-5.0 [facility] Calcium [Mass/Vol] 8.5 mg/dL 8.5-10.1 [facility] Chloride [Moles/Vol] 99 mmol/L 98-107 [facility] CO2 [Moles/Vol] 26.2 mmol/L 21.0-32.0 [facility] Creatinine [Mass/Vol] 2.00 mg/dL High 0.55-1.02 [facility] GFR/1.73 sq M.predicted MDRD (S/P/Bld) [Vol rate/Area] 29 mL/min/{1.73_m2} Low >=60 mL/min/1.73 m 2 [facility] Glucose [Mass/Vol] 424 mg/dL High 74-106 [facility] Potassium [Moles/Vol] 4.5 mmol/L 3.5-5.1 [facility] Sodium [Moles/Vol] 136 mmol/L 136-145 [facility] Urea nitrogen [Mass/Vol] 58.0 mg/dL High 7.0-18.0 [facility] Urea nitrogen/Creatinine [Mass ratio] 29.0 mg/mg [facility] No Panel Informationon 11-10 Phosphorus Level 3.6 mg/dL 2.6-4.7 [facility] Serum or plasma anion gap de terminationon 11-10-2024 Anion gap [Moles/Vol] Serum or plasma an ion gap determination [facility] Urology Office/Clinic Noteon 11-04-2024 Urology Office/Clinic Note Urology Office/Clinic Note Chief Complaint Hospital follow up HPI Staff Pt. did see Dr. Gallardo about 20 years ago Admitted [facility] 10/16 after going to ER for weakness/SOB [...] note of the bladder scan anywhere on [facility] system or output volume once peacock placed). /pt state she was NOT having trouble urinating. She was bedridden due to the pacer and the staff was using a PureWick, but they think she was voiding too much for the PureWick to handle/starting to get skin breakdown so they think that is why the peacock was placed. Peacock placed and remained at hospital [facility], no void trial attempted. Dc'd 10/20. Urine cx 10/22 neg. Has been having a lot of pain and discomfort from the peacock. Not tolerating it well. Follows w nephrology for CKD. Electrotype Finisher 10/25/24 1.31 compared to 3.06 on 10/20/24 [...] E&M of New Patient High 60-74 Min 97728 2. CKD (chronic kidney disease) (N18.9: Chronic kidney disease, unspecified) Follows w Dr Rapp Electrotype Finisher 1.31 on day of dc (10/25/24) Most recent labs 11/03/24 - BUN 34 Electrotype Finisher 1.86 GFR 26 Pretty variable all year. (Results scanned into documents) Will repeat in 1 week after peacock removal. Sees Dr Rapp either 11/10 or 11/11. Ordered: E&M of New Patient High 60-74 Min 27073 Renal Function Panel 3. Stress incontinence (N39.3: Stress incontinence (female) (male)) At baseline. Typically when stands from seated position or coughing. 2-4 pads per day. Reassess baseline sx at f/u in 4-6 wks. Ordered: E&M of New Patient High 60-74 Min 68424 Total time spent reviewing previous notes/results/external documents, preparing the chart, conducting the encounter with the patient and family, ordering tests/medications, and documenting the encounter was 60 minutes. Follow-up With When Contact Information SYDNIE HASSAN Within 6 weeks [address] [place] [address] Business (1) Additional Instructions: Patient [...] acetaminophen-oxycodone 3 (more content not included)... Normal [facility] Comment on above: Result Comment: Elec tronically Signed By: STU GARAY, FRANCHESCA Alvarado\.br\Date and Time Signed: 11/04/24 11:13 EST Estimated glomerular filtrat ion rate (GFR) non- Americanon 11-03-2024 GFR/1.73 sq M.predicted among non-blacks MDRD (S/P/Bld) [Vol rate/Area] Estimated glomerular filtration rate (GFR) non- Low >=60 mL/min/1.73 m 2 [facility] Laboratory - Chemistry and C hemistry - challengeon 11-03-2024 Calcium [Mass/Vol] 8.8 mg/dL 8.5-10.1 [facility] Chloride [Moles/Vol] 99 mmol/L 98-107 [facility] CO2 [Moles/Vol] 23.1 mmol/L 21.0-32.0 [facility] Creatinine [Mass/Vol] 1.86 mg/dL High 0.55-1.02 [facility] GFR/1.73 sq M.predicted MDRD (S/P/Bld) [Vol rate/Area] 32 mL/min/{1.73_m2} Low >=60 mL/min/1.73 m 2 [facility] Glucose [Mass/Vol] 367 mg/dL High 74-106 [facility] Potassium [Moles/Vol] 4.7 mmol/L 3.5-5.1 [facility] Sodium [Moles/Vol] 134 mmol/L Low 136-145 [facility] Urea nitrogen [Mass/Vol] 34.0 mg/dL High 7.0-18.0 [facility] Urea nitrogen/Creatinine [Mass ratio] 18.3 mg/mg [facility] Serum or plasma anion gap de terminationon 11-03-2024 Anion gap [Moles/Vol] Serum or plasma an ion gap determination [facility] Office Visiton 10-31-2024 Follow-up visit [id number] Joe Call Bela 1945 F Date Provider Department Center 10/31/2024 [id number]-DXYNOLSABRINA TIRADO LOVE Bruno Family History Problem Relation Age of Onset Coronary artery disease Other Diabetes Other Polycystic kidney disease Other Family Status - Relation Status Age at Other Level of Service:32930 MI OFFICE/OUTPATIENT ESTABLISHED MOD MDM 30 MIN Normal [facility] B-Type Natriuretic Peptideon 10-25-2024 Natriuretic peptide B (Bld) [Mass/Vol] 455.0 pg/mL High 5-100 [facility] Comment on above: Result Comment: PERF ORMED BY: [facility] [address] [place] [address] PATHOLOGIST PAPERHANGER SUPERVISOR MAY HYDE M.D. Performed By: #### G LULS #### Point of Care testing , Basic Metabolic Panelon 10-12 Anion gap [Moles/Vol] 13.0 mmol/L Normal 6.0-15.0 [facility] Comment on above: Performed By: #### G LULS #### Point of Care testing , Calcium [Mass/Vol] 8.6 mg/dL Normal 8.6-10.3 [facility] Comment on above: Performed By: #### G LULS #### Point of Care testing , Chloride [Moles/Vol] 101 mmol/L Normal 98-107 [facility] Comment on above: Performed By: #### G LULS #### Point of Care testing , CO2 [Moles/Vol] 23.8 mmol/L Normal 21.0-31.0 [facility] Comment on above: Performed By: #### G LULS #### Point of Care testing , Creatinine [Mass/Vol] 1.31 mg/dL High 0.60-1.20 [facility] Comment on above: Performed By: #### G LULS #### Point of Care testing , Creatinine Clr Calc Pharmacy 46.58 Normal [facility] Comment on above: Result Comment: PERF ORMED BY: [facility] [place] [id number] PATHOLOGIST PAPERHANGER SUPERVISOR MAY HYDE M.D. Performed By: #### G LULS #### Point of Care testing , Estimated GFR 41.704 mL/Min Normal [facility] Comment on above: Performed By: #### G LULS #### Point of Care testing , Glucose [Mass/Vol] 232 mg/dL High 70-100 [facility] Comment on above: Result Comment: Mobile Glucose Reference Range is dependent on time and content of last meal. Glucose of more than 200 mg/dL in a nonstressed, ambulatory subject supports the diagnosis of Diabetes Mellitus. ADA recommended reference range Performed By: #### G LULS #### Point of Care testing , Potassium [Moles/Vol] 4.8 mmol/L Normal 3.5-5.1 [facility] Comment on above: Performed By: #### G LULS #### Point of Care testing , Sodium [Moles/Vol] 133 mmol/L Low 136-145 [facility] Comment on above: Performed By: #### G LULS #### Point of Care testing , Urea nitrogen [Mass/Vol] 39 mg/dL High 7-25 [facility] Comment on above: Performed By: #### G LULS #### Point of Care testing , Basophils Auto (Bld) [#/Vol] Ordered By: Daniele Jane on 10-25-2024 Basophils (Bld) [#/Vol] Automated basophil count 0.0-0.2 [facility] Basophils/100 WBC Auto (Bld) Ordered By: Daniele Jane on 10-25-2024 Basophils/100 WBC (Bld) Automated basophil % . [facility] COVID CepheidOrdered By: Trino Jane on 10-25-2024 SARS-CoV-2 (COVID-19) Ab IA Ql COVID Cepheid Abnormal Negative [facility] Comment on above: This is a duplicate [...] or Cepheid Disclaimer revoked sooner. PERFORMED BY: [address] [place] [address] PATHOLOGIST PAPERHANGER SUPERVISOR MAY HYDE M.D. Normal [facility] Comment on above: Performed By: #### G LULS #### Point of Care testing , Calcium [Mass/volume] in Ser um or PlasmaOrdered By: Daniele Jane on 10-25-2024 Calcium [Mass/Vol] Calcium [Mass/volume ] in Serum or Plasma 8.6-10.3 [facility] Carbon dioxide, total [Moles /volume] in Serum or PlasmaOrdered By: Daniele Jane on 10-25-2024 CO2 [Moles/Vol] Carbon dioxide, tota l [Moles/volume] in Serum or Plasma 21.0-31.0 [facility] Cepheid COVID PCR Positiveon 10-25-2024 SARS-CoV-2 (COVID-19) RNA FERN+probe Ql (Unsp spec) Positive Critically abnormal Negative [facility] Comment on above: Result Comment: This is a duplicate [employer] Xpert Xpress CoV-2/Flu/RSV Plus RNA by RT-PCR result to be used for statistical tracking purpose only. PERFORMED BY: [address] [place] [address] PATHOLOGIST PAPERHANGER SUPERVISOR MAY HYDE M.D. Performed By: #### G LULS #### Point of Care testing , Chloride [Moles/volume] in S oziel or PlasmaOrdered By: Daniele Jane on 10-25-2024 Chloride [Moles/Vol] Chloride [Moles/vol ume] in Serum or Plasma 98-107 [facility] Complete Blood Count Auto Di ffon 10-25-2024 Basophils (Bld) [#/Vol] 0.1 10*3/uL Normal 0.0-0.2 [facility] Comment on above: Result Comment: PERF ORMED BY: [address] [place] [address] PATHOLOGIST PAPERHANGER SUPERVISOR MAY HYDE M.D. Performed By: #### G LULS #### Point of Care testing , Basophils/100 WBC (Bld) 0.9 % Normal . [facility] Comment on above: Performed By: #### G LULS #### Point of Care testing , Eosinophils (Bld) [#/Vol] 0.1 10*3/uL Normal 0.0-0.45 [facility] Comment on above: Performed By: #### G LULS #### Point of Care testing , Eosinophils/100 WBC (Bld) 1.5 % Normal . [facility] Comment on above: Performed By: #### G LULS #### Point of Care testing , Erythrocyte distribution width (RBC) [Ratio] 15.3 % Normal 11.9-15.3 [facility] Comment on above: Performed By: #### G LULS #### Point of Care testing , Hematocrit (Bld) [Volume fraction] 36.2 % Normal 34.0-46.4 [facility] Comment on above: Performed By: #### G LULS #### Point of Care testing , Hemoglobin (Bld) [Mass/Vol] 12.2 g/dL Normal 11.8-15.4 [facility] Comment on above: Performed By: #### G LULS #### Point of Care testing , Lymphocytes (Bld) [#/Vol] 0.8 10*3/uL Low 1.00-4.8 [facility] Comment on above: Performed By: #### G LULS #### Point of Care testing , Lymphocytes/100 WBC (Bld) 9.8 % Normal . [facility] Comment on above: Performed By: #### G LULS #### Point of Care testing , MCH (RBC) [Entitic mass] 29.5 pg Normal 24.7-34.3 [facility] Comment on above: Performed By: #### G LULS #### Point of Care testing , MCV (RBC) [Entitic vol] 87.6 fL Normal 80-100 [facility] Comment on above: Performed By: #### G LULS #### Point of Care testing , Mean Corpuscular HGB Conc 33.7 g/dL Normal 32.0-35.0 [facility] Comment on above: Performed By: #### G LULS #### Point of Care testing , Monocytes (Bld) [#/Vol] 0.8 10*3/uL Normal 0.0-0.8 [facility] Comment on above: Performed By: #### G LULS #### Point of Care testing , Monocytes/100 WBC (Bld) 25.33 % High 0.00-20.00 [facility] Comment on above: Result Comment: For adults in ED, MDW > 20.0 may be associated with a higher risk of sepsis during the first 12 hrs of hospital admission Performed By: #### G LULS #### Point of Care testing , Monocytes/100 WBC (Bld) 10.7 % Normal . [facility] Comment on above: Performed By: #### G LULS #### Point of Care testing , Neutrophils (Bld) [#/Vol] 6.1 10*3/uL Normal 1.8-7.7 [facility] Comment on above: Performed By: #### G LULS #### Point of Care testing , Neutrophils/100 WBC (Bld) 77.1 % Normal . [facility] Comment on above: Performed By: #### G LULS #### Point of Care testing , NRBC% 0.1 /100{WBC} Normal 0-0.5 [facility] Comment on above: Performed By: #### G LULS #### Point of Care testing , Platelet mean volume (Bld) [Entitic vol] 9.0 fL Normal 6.3-10.7 [facility] Comment on above: Performed By: #### G LULS #### Point of Care testing , Platelets (Bld) [#/Vol] 142 10*3/uL Low 150-450 [facility] Comment on above: Performed By: #### G LULS #### Point of Care testing , RBC (Bld) [#/Vol] 4.13 10*6/uL Normal 3.60-5.00 [facility] Comment on above: Performed By: #### G LULS #### Point of Care testing , WBC (Bld) [#/Vol] 7.9 10*3/uL Normal 3.8-11.6 [facility] Comment on above: Performed By: #### G LULS #### Point of Care testing , Creatinine [Mass/volume] in Serum or PlasmaOrdered By: Daniele Jnae on 10-25-2024 Creatinine [Mass/Vol] Creatinine [Mass/v olume] in Serum or Plasma High 0.60-1.20 [facility] ECG 12 lead ECGon 10-25-2024 ECG 12 lead ECG [facility] [place] [address] Electrocardiograph Report Signed Patient: Joe Call MR#: [id number] 0 : 1945 Acct:[id number] Age/Sex: 79 / F ADM Date: 10/25/24 Loc: ER Room: Type: [facility] ER Attending Dr: Ordering Provider: [...] sinus arrhythmia Confirmed by Daniele Jane DO ([id number]) on 10/25/2024 2:01:48 PM Referred By: Electronically Signed By: Daniele Jane DO Transcribed By: MUS Signed By Daniele Jane DO 1401 Normal [facility] Eosinophils Auto (Bld) [#/Vo l]Ordered By: Daniele Jane on 10-25-2024 Eosinophils (Bld) [#/Vol] Automated eosinophil count 0.0-0.45 [facility] Eosinophils/100 WBC Auto (Bl d)Ordered By: Daniele Jane on 10-25-2024 Eosinophils/100 WBC (Bld) Automated eosinophil % . [facility] Erythrocyte distribution wid th Auto (RBC) [Ratio]Ordered By: Daniele Jane on 10-25-2024 Erythrocyte distribution width (RBC) [Ratio] Erythrocyte distribution width [Ratio] by Automated count 11.9-15.3 [facility] Glucose [Mass/volume] in Ser um or PlasmaOrdered By: Daniele Jane on 10-25-2024 Glucose [Mass/Vol] Glucose [Mass/volume ] in Serum or Plasma High 70-100 [facility] Comment on above: ADA recommended refe rence rangeRandom Glucose Reference Range is dependent on time and content of last meal. Glucose of more than 200 mg/dL in a nonstressed, ambulatory subject supports the diagnosis of Diabetes Mellitus. Hematocrit Auto (Bld) [Volum e fraction]Ordered By: Daniele Jane on 10-25-2024 Hematocrit (Bld) [Volume fraction] Hematocrit [Volume Fraction] of Blood by Automated count 34.0-46.4 [facility] Hemoglobin [Mass/volume] in BloodOrdered By: Daniele Jane on 10-25-2024 Hemoglobin (Bld) [Mass/Vol] Hemoglobin [Mass/volume] in Blood 11.8-15.4 [facility] INR in Platelet poor plasma by Coagulation assayOrdered By: Daniele Jane on 10-25-2024 INR Coag (PPP) [Relative time] INR in Platelet poor plasma by Coagulation assay [facility] Comment on above: INR Therapeutic Rang e [...] erythrocytes in Blood by Automated coun 3.8-11.6 [facility] Lymphocytes Auto (Bld) [#/Vo l]Ordered By: Daniele Jane on 10-25-2024 Lymphocytes (Bld) [#/Vol] Lymphocytes [#/volume] in Blood by Automated count Low 1.00-4.8 [facility] Lymphocytes/100 WBC Auto (Bl d)Ordered By: Daniele Jane on 10-25-2024 Lymphocytes/100 WBC (Bld) Lymphocytes/100 leukocytes in Blood by Automated count . [facility] MCH Auto (RBC) [Entitic mass ]Ordered By: Daniele Jane on 10-25-2024 MCH (RBC) [Entitic mass] MCH [Entitic mass] by Automated count 24.7-34.3 [facility] MCHC Auto (RBC) [Mass/Vol]Or dered By: Daniele Jane on 10-25-2024 MCHC (RBC) [Mass/Vol] MCHC [Mass/volume] by Automated count 32.0-35.0 [facility] MCV Auto (RBC) [Entitic vol] Ordered By: Daniele Jane on 10-25-2024 MCV (RBC) [Entitic vol] MCV [Entitic volume] by Automated count 80-100 [facility] Monocyte distribution width [Entitic volume] in Blood by AutomatedOrdered By: Daniele Jane on 10-25-2024 Monocyte distribution width Auto (Bld) [Entitic vol] Monocyte distribution width [Entitic volume] in Blood by Automated High 0.00-20.00 [facility] Comment on above: For adults in ED, MD W > 20.0 may be associated with a higher risk of sepsis during the first 12 hrs of hospital admission Monocytes Auto (Bld) [#/Vol] Ordered By: Daniele Jane on 10-25-2024 Monocytes (Bld) [#/Vol] Automated blood monocyte count 0.0-0.8 [facility] Monocytes/100 WBC Auto (Bld) Ordered By: Daniele Jane on 10-25-2024 Monocytes/100 WBC (Bld) Automated monocyte % . [facility] Natriuretic peptide B [Mass/ Vol]Ordered By: Daniele Jane on 10-25-2024 Natriuretic peptide B (Bld) [Mass/Vol] BNP ser/plas High 5-100 [facility] Neutrophils Auto (Bld) [#/Vo l]Ordered By: Daniele Jane on 10-25-2024 Neutrophils (Bld) [#/Vol] Neutrophils [#/volume] in Blood by Automated count 1.8-7.7 [facility] Neutrophils/100 WBC Auto (Bl d)Ordered By: Daniele Jane on 10-25-2024 Neutrophils/100 WBC (Bld) Automated neutrophil % . [facility] No Panel InformationOrdered By: Daniele Jane on 10-25-2024 Estimated GFR (CKD-EPI) 41.704 mL/Min [facility] Creatinine Clearance (Chem 46.58 [facility] Nucleated erythrocytes [Pres ence] in Blood by Automated countOrdered By: Daniele Jane on 10-25-2024 Nucleated RBC Auto Ql (Bld) Nucleated erythrocytes [Presence] in Blood by Automated count 0-0.5 [facility] Partial Thromboplastin Timeo n 10-25-2024 aPTT Coag (Bld) [Time] 28.6 s Normal 25.1-36.5 [facility] Comment on above: Result Comment: A he matocrit value greater than 55% may lead to inaccurate results in coagulation testing. Patients having hematocrit values >55% require a special collection tube for coagulation studies. Please contact the laboratory at [phone] for redraw instructions. PERFORMED BY: [facility] [address] [place] [address] PATHOLOGIST PAPERHANGER SUPERVISOR MAY HYDE M.D. Performed By: #### G LULS #### Point of Care testing , Platelet mean volume Auto (B ld) [Entitic vol]Ordered By: Daniele Jane on 10-25-2024 Platelet mean volume (Bld) [Entitic vol] Platelet mean volume [Entitic volume] in Blood by Automated count 6.3-10.7 [facility] Platelets Auto (Bld) [#/Vol] Ordered By: Daniele Jane on 10-25-2024 Platelets (Bld) [#/Vol] Platelets [#/volume] in Blood by Automated count Low 150-450 [facility] Potassium [Moles/volume] in Serum or PlasmaOrdered By: Daniele Jane on 10-25-2024 Potassium [Moles/Vol] Potassium [Moles/v olume] in Serum or Plasma 3.5-5.1 [facility] Prothrombin Time INRon 10-25 INR Coag (PPP) [Relative time] 1.2 {INR} Normal [facility] Comment on [...] (PPP) [Time] 13.5 s High 9.0-12.9 [facility] Comment on above: Result Comment: A he matocrit value greater than 55% may lead to inaccurate results in coagulation testing. Patients having hematocrit values >55% require a special collection tube for coagulation studies. Please contact the laboratory at [phone] for redraw instructions. Performed By: #### G LULS #### Point of Care testing , Prothrombin time (PT)Ordered By: Daniele Jane on 10-25-2024 PT Coag (PPP) [Time] Prothrombin time (PT) High 9.0- 12.9 [facility] Comment on above: A hematocrit value g reater than 55% may lead to inaccurate results in coagulation testing. Patients having hematocrit values >55% require a special collection tube for coagulation studies. Please contact the laboratory at [phone] for redraw instructions. RBC Auto (Bld) [#/Vol]Ordere d By: Daniele Jane on 10-25-2024 RBC (Bld) [#/Vol] Erythrocytes [#/volu me] in Blood by Automated count 3.60-5.00 [facility] Respiratory specimen influen za A virus, influenza B virus, respiratory syncytical virOrdered By: Daniele Jane on 10-25-2024 SARS-CoV-2 (COVID-19) RNA FERN+probe Ql (Unsp spec) Respiratory specimen influenza A virus, influenza B virus, respiratory syncytical vir [facility] SARS-CoV-2 (COVID-19) RNA FERN+probe Ql (Unsp spec) Respiratory specimen influenza A virus, influenza B virus, respiratory syncytical vir [facility] Serum or plasma anion gap de terminationOrdered By: Daniele Jane on 10-25-2024 Anion gap [Moles/Vol] Serum or plasma an ion gap determination 6.0-15.0 [facility] Sodium [Moles/volume] in Ser um or PlasmaOrdered By: Daniele Jane on 10-25-2024 Sodium [Moles/Vol] Sodium [Moles/volume ] in Serum or Plasma Low 136-145 [facility] Troponin I High Sensitivityo n 10-25-2024 Troponin I High Sensitivity 14.6 pg/mL Normal 0.0-15.0 [facility] Comment on above: Result Comment: PERF ORMED BY: [facility] [address] [place] [address] PATHOLOGIST PAPERHANGER SUPERVISOR MAY HYDE M.D. Performed By: #### G MICK #### Point of Care testing , Troponin I.cardiac [Mass/vol ume] in Serum or Plasma by Detection limit <= 0.01 ng/Ordered By: Daniele Jane on 10-25-2024 Troponin I.cardiac DL <= 0.01 ng/mL [Mass/Vol] Troponin I.cardiac [Mass/volume] in Serum or Plasma by Detection limit <= 0.01 ng/ 0.0-15.0 [facility] Urea nitrogen [Mass/volume] in Serum or PlasmaOrdered By: Daniele Jane on 10-25-2024 Urea nitrogen [Mass/Vol] Urea nitrogen [Mass/volume] in Serum or Plasma High 7-25 [facility] WBC Auto (Bld) [#/Vol]Ordere d By: Daniele Jane on 10-25-2024 WBC (Bld) [#/Vol] Leukocytes [#/volume ] in Blood by Automated count 3.8-11.6 [facility] XR chest 1V portableon 10-25 XR chest 1V portable [facility] [place] [address] [place] [address] XRay Report Signed Patient: Joe Call MR#: [id number] 0 : 1945 Acct:[id number] Age/Sex: 79 / F ADM Date: 10/25/24 Loc: ER Room: Type: [facility] ER Attending Dr: Copies to: Daniele [...] Jarred Randolph M.D.10/25/2024 7:35 AM Dictation Location: [place] [address] Transcribed By: [facility] 10/25/24 0735 Dictated By: Jarred Randolph DO 10/25/24 0734 Signed By: 10/25/24 0735 Normal [facility] aPTT in Platelet poor plasma by Coagulation assayOrdered By: Daniele Jane on 10-25-2024 aPTT Coag (PPP) [Time] Activated partial thromboplastin time (aPTT) in platelet poor plasma by coagulation a 25.1-36.5 [facility] Comment on above: A hematocrit value g reater than 55% may lead to inaccurate results in coagulation testing. Patients having hematocrit values >55% require a special collection tube for coagulation studies. Please contact the laboratory at [phone] for redraw instructions. Appearance of UrineOrdered B y: Zhang Norwood on 10-22-2024 Appearance (U) Urine appearance Abnormal Clear [facility] Bacteria [Presence] in Urine by AutomatedOrdered By: Zhang Norwood on 10-22-2024 Bacteria Auto Ql (U) Bacteria [Presence] in Urine by Automated None Seen [facility] Bilirubin Test strip Ql (U)O rdered By: Zhang Norwood on 10-22-2024 Bilirubin Ql (U) Bilirubin.total [Presence] in Urine by Test strip Negative [facility] Calcium oxalate crystals [Pr esence] in Urine by Computer assisted methodOrdered By: Zhang Norwood on 10-22-2024 Calcium oxalate crystals Computer assisted Ql (U) Calcium oxalate crystals [Presence] in Urine by Computer assisted method [facility] Color Auto (U)Ordered By: Renetta Norwood on 10-22-2024 Color (U) Color of Urine by Auto Yellow Fi [facility] Dipstick and Microscopicon 1 12-23-2023 Appearance (U) Cloudy Critically abnormal Clear [facility] Comment on above: Order Comment: Name Collection Type:: Peacock Catheter Performed By: #### M G, BMP #### [facility] [address] [place] [id number] [place] Bacteria,Urine None Seen Normal None Seen [facility] Comment on above: Order Comment: Name Collection Type:: Peacock Catheter Performed By: #### M G, BMP #### [facility] [address] [place] [address] [place] Bilirubin,Urine Negative Normal Negative [facility] Comment on above: Order Comment: Name Collection Type:: Peacock Catheter Performed By: #### M G, BMP #### [facility] [address] [place] [address] [place] Calcium Oxalate Crystals,Urine Rare Normal [facility] Comment on above: Order Comment: Name Collection Type:: Peacock Catheter Performed By: #### M G, BMP #### [facility] [address] [place] [address] [place] Color (U) Yellow Normal Yellow [facility] Comment on above: Order Comment: Name Collection Type:: Peacock Catheter Performed By: #### M G, BMP #### [facility] [address] [place] [address] [place] Glucose Ql (U) 30 mg/dL High Normal [facility] Comment on above: Order Comment: Name Collection Type:: Peacock Catheter Performed By: #### M G, BMP #### [place] [address] [place] Hyaline Casts,Urine 0 [LPF] Normal 0-8 [facility] Comment on above: Order Comment: Name Collection Type:: Peacock Catheter Performed By: #### M G, BMP #### [address] Ketones Ql (U) Negative Normal Negative [facility] Comment on above: Order Comment: Name Collection Type:: Peacock Catheter Performed By: #### M G, BMP #### [address] Leukocyte esterase Test strip Ql (U) 1+ High Negative [facility] Comment on above: Order Comment: Name Collection Type:: Peacock Catheter Performed By: #### M G, BMP #### [place] [address] [place] Mucus,Urine Rare Normal [facility] Comment on above: Order Comment: Name Collection Type:: Peacock Catheter Result Comment: PERF ORMED BY: [place] [address] PATHOLOGIST PAPERHANGER SUPERVISOR MAY YHDE M.D. Performed By: #### M G, BMP #### [place] [address] [place] Nitrite,Urine Negative Normal Negative [facility] Comment on above: Order Comment: Name Collection Type:: Peacock Catheter Performed By: #### M G, BMP #### [place] [address] [place] Occult Blood,Urine 3+ High Negative [facility] Comment on above: Order Comment: Name Collection Type:: Peacock Catheter Result Comment: PERF ORMED BY: [place] [address] PATHOLOGIST PAPERHANGER SUPERVISOR MAY HYDE M.D. Performed By: #### M G, BMP #### [address] pH (U) 5.5 [pH] Normal 5.0-9.0 [facility] Comment on above: Order Comment: Name Collection Type:: Peacock Catheter Performed By: #### M G, BMP #### [address] Protein (U) [Mass/Vol] 300 mg/dL High Negative [facility] Comment on above: Order Comment: Name Collection Type:: Peacock Catheter Performed By: #### M G, BMP #### [address] RBC,Urine Innumerable High 0-4 [facility] Comment on above: Order Comment: Name Collection Type:: Peacock Catheter Performed By: #### M G, BMP #### [address] Specificy [place],Urine 1.019 Normal 1.001-1.030 [facility] Comment on above: Order Comment: Name Collection Type:: Peacock Catheter Performed By: #### M G, BMP #### [place] [address] [place] Squamous Epithelial Cell,Urine 1 [HPF] Normal 0-2 [facility] Comment on above: Order Comment: Name Collection Type:: Peacock Catheter Performed By: #### M G, BMP #### [address] Urobilinogen,Urine Normal Normal Normal [facility] Comment on above: Order Comment: Name Collection Type:: Peacock Catheter Performed By: #### M G, BMP #### [place] [address] [place] WBC,Urine 10 [HPF] High 0-4 [facility] Comment on above: Order Comment: Name Collection Type:: Peacock Catheter Performed By: #### M G, BMP #### [place] [address] [place] Epithelial cells.squamous [# /area] in Urine sediment by Automated countOrdered By: Zhang Norwood on 10-22-2024 Epithelial cells.squamous Auto (Urine sed) [#/Area] Epithelial cells.squamous [#/area] in Urine sediment by Automated count 0-2 [facility] Erythrocytes [#/area] in Uri ne sediment by Automated countOrdered By: Zhang Norwood on 10-22-2024 RBC Auto (Urine sed) [#/Area] Erythrocytes [#/area] in Urine sediment by Automated count High 0-4 [facility] Glucose [Mass/volume] in Uri ne by Test stripOrdered By: Zhang Norwood on 10-22-2024 Glucose Test strip (U) [Mass/Vol] Glucose [Mass/volume] in Urine by Test strip [facility] Normal [facility] Hemoglobin Test strip Ql (U) Ordered By: Zhang Norwood on 10-22-2024 Hemoglobin Ql (U) Hemoglobin [Presence ] in Urine by Test strip [facility] Negative [facility] Hyaline casts [#/area] in Ur ine sediment by Automated countOrdered By: Zhang Norwood on 10-22-2024 Hyaline casts Auto (Urine sed) [#/Area] Hyaline casts [#/area] in Urine sediment by Automated count 0-8 [facility] Ketones Test strip Ql (U)Ord ered By: Zhang Norwood on 10-22-2024 Ketones Ql (U) Ketones [Presence] i n Urine by Test strip Negative [facility] Leukocyte esterase [Presence ] in Urine by Test stripOrdered By: Zhang Norwood on 10-22-2024 Leukocyte esterase Test strip Ql (U) Leukocyte esterase [Presence] in Urine by Test strip [facility] Negative [facility] Leukocytes [#/area] in Urine sediment by Automated countOrdered By: Zhang Norwood on 10-22-2024 WBC Auto (Urine sed) [#/Area] Leukocytes [#/area] in Urine sediment by Automated count [facility] 0-4 [facility] Mucus [Presence] in Urine by AutomatedOrdered By: Zhang Norwood on 10-22-2024 Mucus Auto Ql (U) Mucus [Presence] in Urine by Automated [facility] Nitrite Test strip Ql (U)Ord ered By: Zhang Norwood on 10-22-2024 Nitrite Ql (U) Nitrite [Presence] i n Urine by Test strip Negative [facility] Protein Test strip (U) [Mass /Vol]Ordered By: Zhang Norwood on 10-22-2024 Protein (U) [Mass/Vol] Protein [Mass/vol ume] in Urine by Test strip High Negative [facility] Specific gravity Test strip (U) [Rel density]Ordered By: Zhang Norwood on 10-22-2024 Specific gravity (U) [Rel density] Specific gravity of Urine by Test strip 1.001-1.030 [facility] Urine Cultureon 10-22-2024 Bacteria identified Cx Nom (U) 15,000 colonies/ml mixed bacterial skin contaminants 2 Days PERFORMED BY: [place] [address] PATHOLOGIST PAPERHANGER SUPERVISOR MAY HYDE M.D. Normal [facility] Comment on above: Performed By: #### M G, BMP #### [address] Urine cultureOrdered By: Hortensia Norwood on 10-22-2024 Bacteria identified Cx Nom (U) Urine culture [facility] Bacteria identified Cx Nom (U) Urine culture [facility] Urobilinogen Test strip (U) [Mass/Vol]Ordered By: Zhang Norwood on 10-22-2024 Urobilinogen (U) [Mass/Vol] Urobilinogen [Mass/volume] in Urine by Test strip Normal [facility] pH Test strip (U)Ordered By: Zhang Norwood on 10-22-2024 pH (U) pH of Urine by Test strip 5.0-9.0 [facility] A1C with Estimated Average G keciamert 10-20-2024 Glucose [Mass/Vol] 292 mg/dL Normal [facility] Comment on above: Result Comment: PERF ORMED BY: [place] [address] PATHOLOGIST PAPERHANGER SUPERVISOR MAY HYDE M.D. Performed By: #### G LULS #### Point of Care testing , HbA1c (Bld) [Mass fraction] 11.8 % High 4.3-5.6 [facility] Comment on above: Result Comment: Incr eased risk for diabetes: 5.7 - 6.4 diabetes: >6.4 glycemic control for adults with diabetes: <7.0 Performed By: #### G MICK #### Point of Care testing , Basic Metabolic Panelon 12-0 Anion gap [Moles/Vol] Not performed Normal 6.0-15.0 [facility] Comment on above: Performed By: #### Vandana Cramer, BMP #### [facility] [address] Calcium [Mass/Vol] 8.7 mg/dL Normal 8.6-10.3 [facility] Comment on above: Performed By: #### Vandana Cramer, BMP #### [facility] [address] Chloride [Moles/Vol] 97 mmol/L Low 98-107 [facility] Comment on above: Performed By: #### Vandana Cramer, BMP #### [facility] [address] CO2 [Moles/Vol] 26.0 mmol/L Normal 21.0-31.0 [facility] Comment on above: Performed By: #### Vandana Cramer, BMP #### [facility] [address] [place] [address] [place] Creatinine [Mass/Vol] 3.06 mg/dL High 0.60-1.20 [facility] Comment on above: Performed By: #### Vandana Cramer, BMP #### [facility] [address] [place] [address] [place] Creatinine Clr Calc Pharmacy 18.79 Normal [facility] Comment on above: Performed By: #### Vandana Cramer, BMP #### [facility] [address] [place] [address] [place] Estimated GFR 15.067 mL/Min Normal [facility] Comment on above: Performed By: #### Vandana Cramer, BMP #### [address] Glucose [Mass/Vol] 159 mg/dL Significant change up 70-100 [facility] Comment on above: Result Comment: [facility] Glucose Reference Range is dependent on time and content of last meal. Glucose of more than 200 mg/dL in a nonstressed, ambulatory subject supports the diagnosis of Diabetes Mellitus. ADA recommended reference range Performed By: #### M G, BMP #### [facility] [address] Potassium Normal 3.5-5.1 [facility] Comment on above: Result Comment: Spec imen hemolyzed, redraw requested Performed By: #### M Bela, BMP #### [facility] [address] Sodium Normal 136-145 [facility] Comment on above: Result Comment: Spec imen hemolyzed, redraw requested Performed By: #### Vandana Cramer, BMP #### [facility] [address] Urea nitrogen [Mass/Vol] 91 mg/dL High 7-25 [facility] Comment on above: Performed By: #### Vandana Cramer, BMP #### [facility] [address] Blood estimated average gluc ose determination by estimation from glycated hemoglobinOrdered By: Kavin Escobar on 10-20-2024 Average glucose Estimated from glycated hemoglobin (Bld) [Mass/Vol] Glucose mean value [Mass/volume] in Blood Estimated from glycated hemoglobin [facility] Calcium [Mass/volume] in Ser um or PlasmaOrdered By: Mauri Chavira on 10-20-2024 Calcium [Mass/Vol] Calcium [Mass/volume ] in Serum or Plasma 8.6-10.3 [facility] Carbon dioxide, total [Moles /volume] in Serum or PlasmaOrdered By: Mauri Chavira on 10-20-2024 CO2 [Moles/Vol] Carbon dioxide, tota l [Moles/volume] in Serum or Plasma 21.0-31.0 [facility] Chloride [Moles/volume] in S oziel or PlasmaOrdered By: Mauri Chavira on 10-20-2024 Chloride [Moles/Vol] Chloride [Moles/vol ume] in Serum or Plasma Low 98-107 [facility] Creatinine [Mass/volume] in Serum or PlasmaOrdered By: Mauri Chavira on 10-20-2024 Creatinine [Mass/Vol] Creatinine [Mass/v olume] in Serum or Plasma High 0.60-1.20 [facility] Glucose Glucometer (BldC) [M ass/Vol]Ordered By: Kavin Escobar on 10-20-2024 Glucose [Mass/Vol] Capillary blood gluc ose measurement by glucometer (mass/volume) [facility] Comment on above: Random Glucose Refer ence Range is dependent on time and content of last meal. Glucose of more than 200 mg/dL in a nonstressed, ambulatory subject supports the diagnosis of Diabetes Mellitus. Glucose Poct Glucometerson 1 12-21-2023 Glucose [Mass/Vol] 209 mg/dL Normal [facility] Comment on above: Result Comment: Mobile om Glucose Reference Range is dependent on time and content of last meal. Glucose of more than 200 mg/dL in a nonstressed, ambulatory subject supports the diagnosis of Diabetes Mellitus. PERFORMED BY: [place] [address] PATHOLOGIST PAPERHANGER SUPERVISOR MAY HYDE M.D. Performed By: #### Vandana Cramer, BMP #### [facility] [address] [place] [address] [facility] Glucose [Mass/Vol] 164 mg/dL Normal [facility] Comment on above: Result Comment: Mobile om Glucose Reference Range is dependent on time and content of last meal. Glucose of more than 200 mg/dL in a nonstressed, ambulatory subject supports the diagnosis of Diabetes Mellitus. PERFORMED BY: [place] [id number] PATHOLOGIST PAPERHANGER SUPERVISOR MAY HYDE M.D. Performed By: #### Vandana Cramer, BMP #### [facility] [address] [place], [place] [id number] [place] Glucose [Mass/volume] in Ser um or PlasmaOrdered By: Mauri Chavira on 10-20-2024 Glucose [Mass/Vol] Glucose [Mass/volume ] in Serum or Plasma Invalid Interpretation Code 70-100 [facility] Comment on above: Delta: 288 on 11ADA recommended reference rangeRandom Glucose Reference Range is dependent on time and content of last meal. Glucose of more than 200 mg/dL in a nonstressed, ambulatory subject supports the diagnosis of Diabetes Mellitus. Hemoglobin A1c/Hemoglobin.to vinicio in BloodOrdered By: Kavin Escobar on 10-20-2024 HbA1c (Bld) [Mass fraction] Hemoglobin A1c percentage High 4.3-5.6 [facility] Comment on above: Increased risk for d iabetes: 5.7 - 6.4diabetes: >6.4glycemic control for adults with diabetes: <7.0 Magnesiumon 10-20-2024 Magnesium Normal 1.9-2.7 [facility] Comment on above: Result Comment: Spec imen hemolyzed, redraw requested PERFORMED BY: [address] [address] PATHOLOGIST PAPERHANGER SUPERVISOR MAY HYDE M.D. Performed By: #### Vandana Cramer, [facility] #### [place] [id number] [facility] Magnesium [Mass/volume] in S oziel or PlasmaOrdered By: Mauri Chavira on 10-20-2024 Magnesium [Mass/Vol] Magnesium [Mass/vol ume] in Serum or Plasma 1.9-2.7 [facility] No Panel InformationOrdered By: Mauri Chavira on 10-20-2024 Estimated GFR (CKD-EPI) 15.067 mL/Min [facility] Pharmacy Creatinine Clearance (Chem 18.79 [facility] Potassium [Moles/volume] in Serum or PlasmaOrdered By: Mauri Chavira on 10-20-2024 Potassium [Moles/Vol] Potassium [Moles/v olume] in Serum or Plasma 3.5-5.1 [facility] Redraw Magnesiumon Magnesium [Mass/Vol] 1.9 mg/dL Normal 1.9-2.7 [facility] Comment on above: Result Comment: PERF ORMED BY: [address] [address] PATHOLOGIST PAPERHANGER SUPERVISOR MAY HYDE M.D. Performed By: #### M G, BMP #### [facility] [address] [place] [address] Redraw Magnesium Normal 1.9-2.7 [facility] Comment on above: Result Comment: Spec imen hemolyzed, redraw requested PERFORMED BY: [place] [address] PATHOLOGIST PAPERHANGER SUPERVISOR MAY HYDE M.D. Performed By: #### M G, BMP #### [address] Redraw Potassiumon Potassium [Moles/Vol] 4.0 mmol/L Normal 3.5-5.1 [facility] Comment on above: Performed By: #### M G, BMP #### [address] Redraw Potassium Normal 3.5-5.1 [facility] Comment on above: Result Comment: Spec imen hemolyzed, redraw requested Performed By: #### M G, BMP #### [address] Redraw Sodiumon 10-20-2024 Sodium [Moles/Vol] 134 mmol/L Low 136-145 [facility] Comment on above: Performed By: #### M G, BMP #### [address] Serum or plasma anion gap de terminationOrdered By: Mauri Chavira on 10-20-2024 Anion gap [Moles/Vol] Serum or plasma an ion gap determination [facility] Comment on above: Test not performed Sodium [Moles/volume] in Ser um or PlasmaOrdered By: Mauri Chavira on 10-20-2024 Sodium [Moles/Vol] Sodium [Moles/volume ] in Serum or Plasma Low 136-145 [facility] Urea nitrogen [Mass/volume] in Serum or PlasmaOrdered By: Mauri Chavira on 12-09-2024 Urea nitrogen [Mass/Vol] Urea nitrogen [Mass/volume] in Serum or Plasma High 7-25 [facility] Basic Metabolic Panelon 12-0 Anion gap [Moles/Vol] 14.7 mmol/L Normal 6.0-15.0 [facility] Comment on above: Performed By: #### Vandana G, BMP #### [facility] [address] [place] [id number] [facility] Calcium [Mass/Vol] 9.1 mg/dL Normal 8.6-10.3 [facility] Comment on above: Performed By: #### Vandana G, BMP #### [facility] [address] [place] [address] [place] Chloride [Moles/Vol] 95 mmol/L Low 98-107 [facility] Comment on above: Performed By: #### Vandana G, BMP #### [facility] [address] [place] [address] [place] CO2 [Moles/Vol] 28.6 mmol/L Normal 21.0-31.0 [facility] Comment on above: Performed By: #### Vandana G, BMP #### [facility] [address] [place] [address] [place] Creatinine [Mass/Vol] 2.71 mg/dL Significan t change up 0.60-1.20 [facility] Comment on above: Performed By: #### Vandana G, BMP #### [facility] [address] [place] [id number] [place] Creatinine Clr Calc Pharmacy 21.49 Normal [facility] Comment on above: Performed By: #### Vandana G, BMP #### [facility] [address] [place] [id number] [place] Estimated GFR 17.432 mL/Min Normal [facility] Comment on above: Performed By: #### Vandana G, BMP #### [facility] [address] [place] [id number] [facility] Glucose [Mass/Vol] 288 mg/dL High 70-100 [facility] Comment on above: Result Comment: Mobile Glucose Reference Range is dependent on time and content of last meal. Glucose of more than 200 mg/dL in a nonstressed, ambulatory subject supports the diagnosis of Diabetes Mellitus. ADA recommended reference range Performed By: #### M G, BMP #### [address] Potassium [Moles/Vol] 4.3 mmol/L Normal 3.5-5.1 [facility] Comment on above: Performed By: #### M G, BMP #### [address] Sodium [Moles/Vol] 134 mmol/L Low 136-145 [facility] Comment on above: Performed By: #### M G, BMP #### [address] Urea nitrogen [Mass/Vol] 77 mg/dL High 7-25 [facility] Comment on above: Performed By: #### M G, BMP #### [address] Glucose Poct Glucometerson 1 12-20-2023 Glucose [Mass/Vol] 222 mg/dL Normal [facility] Comment on above: Result Comment: [facility] Glucose Reference Range is dependent on time and content of last meal. Glucose of more than 200 mg/dL in a nonstressed, ambulatory subject supports the diagnosis of Diabetes Mellitus. PERFORMED BY: [place] [address] PATHOLOGIST PAPERHANGER SUPERVISOR AMY HYDE M.D. Performed By: #### Vandana G, BMP #### [address] Glucose [Mass/Vol] 306 mg/dL Normal [facility] Comment on above: Result Comment: Mobile Glucose Reference Range is dependent on time and content of last meal. Glucose of more than 200 mg/dL in a nonstressed, ambulatory subject supports the diagnosis of Diabetes Mellitus. PERFORMED BY: [place] [address] PATHOLOGIST PAPERHANGER SUPERVISOR MAY HYDE M.D. Performed By: #### Vandana G, BMP #### [address] [place] [address] [place] Glucose [Mass/Vol] 342 mg/dL Normal [facility] Comment on above: Result Comment: Mobile om Glucose Reference Range is dependent on time and content of last meal. Glucose of more than 200 mg/dL in a nonstressed, ambulatory subject supports the diagnosis of Diabetes Mellitus. PERFORMED BY: [place] [address] PATHOLOGIST PAPERHANGER SUPERVISOR MAY HYDE M.D. Performed By: #### Vandana Cramer, BMP #### [address] Glucose [Mass/Vol] 267 mg/dL Normal [facility] Comment on above: Result Comment: Mobile Glucose Reference Range is dependent on time and content of last meal. Glucose of more than 200 mg/dL in a nonstressed, ambulatory subject supports the diagnosis of Diabetes Mellitus. PERFORMED BY: [place] [address] PATHOLOGIST PAPERHANGER SUPERVISOR MAY HYDE M.D. Performed By: #### Vandana Cramer, BMP #### [address] Magnesiumon 10-19-2024 Magnesium [Mass/Vol] 2.0 mg/dL Normal 1.9-2.7 [facility] Comment on above: Result Comment: PERF ORMED BY: [place] [address] PATHOLOGIST PAPERHANGER SUPERVISOR MAY HYDE M.D. Performed By: #### Vandana Cramer, BMP #### [address] Basic Metabolic Panelon 12-0 Anion gap [Moles/Vol] 15.4 mmol/L High 6.0-15.0 [facility] Comment on above: Order Comment: REY PARKER NOTIFIED. SMB 0442. Performed By: #### Vandana Cramer, KAREN, TSH3, T4F ####[address] Calcium [Mass/Vol] 9.5 mg/dL Normal 8.6-10.3 [facility] Comment on above: Order Comment: REY PARKER NOTIFIED. SMB 0442. Performed By: #### Vandana Cramer, KAREN, TSH3, T4F ####[place] [id number] [facility] Chloride [Moles/Vol] 97 mmol/L Low 98-107 [facility] Comment on above: Order Comment: REY PARKER NOTIFIED. SMB 0442. Performed By: #### Vandana Cramer, KAREN, TSH3, T4F ####[place] [id number] [facility] CO2 [Moles/Vol] 29.7 mmol/L Normal 21.0-31.0 [facility] Comment on above: Order Comment: REY PARKER NOTIFIED. SMB 0442. Performed By: #### KAREN Hansen, TSH3, T4F ####[place] [id number] [facility] Creatinine [Mass/Vol] 1.81 mg/dL High 0.60-1.20 [facility] Comment on above: Order Comment: REY PARKER NOTIFIED. SMB 044. Performed By: #### Vandana Cramer, KAREN, TSH3, T4F ####[place] [id number] [facility] Creatinine Clr Calc Pharmacy 32.95 Normal [facility] Comment on above: Order Comment: REY PARKER NOTIFIED. SMB 044. Performed By: #### Vandana Cramer, KAREN, TSH3, T4F ####[place] [id number] [facility] Estimated GFR 28.294 mL/Min Normal [facility] Comment on above: Order Comment: REY PARKER NOTIFIED. SMB 0442. Performed By: #### Vandana Cramer, KAREN, TSH3, T4F ####[place] [id number] [facility] Glucose [Mass/Vol] 220 mg/dL High 70-100 [facility] Comment on above: Order Comment: REY PARKER NOTIFIED. SMB 0442. Result Comment: [facility] Glucose Reference Range is dependent on time and content of last meal. Glucose of more than 200 mg/dL in a nonstressed, ambulatory subject supports the diagnosis of Diabetes Mellitus. ADA recommended reference range Performed By: #### M G, BMP, TSH3, T4F ####[place] [address] [place] [address] [facility] Potassium [Moles/Vol] 4.1 mmol/L Normal 3.5-5.1 [facility] Comment on above: Order Comment: REY PARKER NOTIFIED. SMB 0442. Performed By: #### M G, BMP, TSH3, T4F ####[place] [id number] [facility] Sodium [Moles/Vol] 138 mmol/L Normal 136-145 [facility] Comment on above: Order Comment: REY PARKER NOTIFIED. SMB 0442. Performed By: #### M G, BMP, TSH3, T4F ####[address] [address] [facility] Urea nitrogen [Mass/Vol] 66 mg/dL High 7-25 [facility] Comment on above: Order Comment: REY PARKER NOTIFIED. SMB 0442. Performed By: #### M G, BMP, TSH3, T4F ####[address] [address] [facility] Free T4 (Free Thyroxine)on 12-19-2023 Free T4 [Mass/Vol] 1.26 ng/dL High 0.61-1.12 [facility] Comment on above: Order Comment: REY PARKER NOTIFIED. SMB 0442. Performed By: #### M G, BMP, TSH3, T4F ####[place] [id number] [facility] Glucose Poct Glucometerson 12-19-2023 Glucose [Mass/Vol] 329 mg/dL Normal [facility] Comment on above: Result Comment: [facility] Glucose Reference Range is dependent on time and content of last meal. Glucose of more than 200 mg/dL in a nonstressed, ambulatory subject supports the diagnosis of Diabetes Mellitus. PERFORMED BY: [place] [address] PATHOLOGIST PAPERHANGER SUPERVISOR MAY HYDE M.D. Performed By: #### G MICK #### Point of Care testing , Glucose [Mass/Vol] 210 mg/dL Normal [facility] Comment on above: Result Comment: Mobile om Glucose Reference Range is dependent on time and content of last meal. Glucose of more than 200 mg/dL in a nonstressed, ambulatory subject supports the diagnosis of Diabetes Mellitus. PERFORMED BY: [place] [address] PATHOLOGIST PAPERHANGER SUPERVISOR MAY HYDE M.D. Performed By: #### Vandana Cramer, BMP #### [address] Glucose [Mass/Vol] 251 mg/dL Normal [facility] Comment on above: Result Comment: Mobile Glucose Reference Range is dependent on time and content of last meal. Glucose of more than 200 mg/dL in a nonstressed, ambulatory subject supports the diagnosis of Diabetes Mellitus. PERFORMED BY: [place] [address] PATHOLOGIST PAPERHANGER SUPERVISOR MAY HYDE M.D. Performed By: #### M Bela, BMP #### [address] Glucose [Mass/Vol] 207 mg/dL Normal [facility] Comment on above: Result Comment: Mobile om Glucose Reference Range is dependent on time and content of last meal. Glucose of more than 200 mg/dL in a nonstressed, ambulatory subject supports the diagnosis of Diabetes Mellitus. PERFORMED BY: [place] [address] PATHOLOGIST PAPERHANGER SUPERVISOR MAY HYDE M.D. Performed By: #### Vandana Cramer, BMP #### [place] [address] [place] Glucose [Mass/Vol] 188 mg/dL Normal [facility] Comment on above: Result Comment: [facility] Glucose Reference Range is dependent on time and content of last meal. Glucose of more than 200 mg/dL in a nonstressed, ambulatory subject supports the diagnosis of Diabetes Mellitus. PERFORMED BY: [facility] [address] [place] [address] PATHOLOGIST PAPERHANGER SUPERVISOR MAY HYED M.D. Performed By: #### Vandana Cramer, BMP #### [facility] [address] [place] [id number] [facility] Magnesiumon 10-18-2024 Magnesium [Mass/Vol] 2.1 mg/dL Normal 1.9-2.7 [facility] Comment on above: Order Comment: REY PARKER NOTIFIED. SMB 0442. Performed By: #### Vandana Cramer, KAREN, TSH3, T4F ####[facility] Serum or plasma thyroperoxid ase antibody assay (units/volume)Ordered By: Mauri Chavira on 10-18-2024 TPO Ab Qn Serum or plasma thyroperoxidase antibody assay (units/volume) 0-34 [facility] Comment on above: Performed at: [facility] [place] [id number] Director: Dimitri Landis PhD, Phone: [phone] Thyroid Peroxidase Antibodie son 10-18-2024 Thyroid Peroxidase Antibodies <9 Normal 0-34 [facility] Comment on above: Order Comment: REY PARKER NOTIFIED. SMB [id number]. Result Comment: Perf ormed at: CB - [facility] [place] [id number] Balance Wheel Motion Inspector: Dimitri Landis PhD, Phone: [phone] PERFORMED BY: [place] [address] PATHOLOGIST PAPERHANGER SUPERVISOR MAY HYDE M.D. Performed By: #### T PO #### [facility] , Thyroid Stimulating Hormoneo n 10-18-2024 TSH Qn 1.86 m[IU]/L Normal 0.45-5.33 [facility] Comment on above: Order Comment: REY PARKER NOTIFIED. SMB [id number]. Result Comment: PERF ORMED BY: [facility] [address] [facility] [place] [address] PATHOLOGIST PAPERHANGER SUPERVISOR MAY HYDE M.D. Performed By: #### M G, BMP, TSH3, T4F ####[facility] [id number] [place] [address] [facility] Thyrotropin [Units/volume] i n Serum or PlasmaOrdered By: Mauri Chavira on 10-18-2024 TSH Qn Thyrotropin [Units/volume] in Serum or Plasma 0.45-5.33 [facility] Thyroxine (T4) free [Mass/vo lume] in Serum or PlasmaOrdered By: Mauri Chavira on 10-18-2024 Free T4 [Mass/Vol] Thyroxine (T4) free [Mass/volume] in Serum or Plasma High 0.61-1.12 [facility] Alanine aminotransferase [En zymatic activity/volume] in Serum or PlasmaOrdered By: Mauri Chavira on 10-17-2024 ALT [Catalytic activity/Vol] Alanine aminotransferase [Enzymatic activity/volume] in Serum or Plasma [facility] Albumin [Mass/volume] in Ser um or Plasma by Bromocresol green (BCG) dye binding methoOrdered By: Mauri Chavira on 10-17-2024 Albumin BCG dye [Mass/Vol] Albumin [Mass/volume] in Serum or Plasma by Bromocresol green (BCG) dye binding metho 3.5-5.7 [facility] Alkaline phosphatase [Enzyma tic activity/volume] in Serum or PlasmaOrdered By: Mauri Chavira on 10-17-2024 ALP [Catalytic activity/Vol] Alkaline phosphatase [Enzymatic activity/volume] in Serum or Plasma 34-104 [facility] Aspartate aminotransferase [ Enzymatic activity/volume] in Serum or PlasmaOrdered By: Mauri Chavira on 10-17-2024 AST [Catalytic activity/Vol] Aspartate aminotransferase [Enzymatic activity/volume] in Serum or Plasma 13-39 [facility] Basophils Auto (Bld) [#/Vol] Ordered By: Mauri Chavira on 10-17-2024 Basophils (Bld) [#/Vol] Automated basophil count 0.0-0.2 [facility] Basophils/100 WBC Auto (Bld) Ordered By: Mauri Chavira on 10-17-2024 Basophils/100 WBC (Bld) Automated basophil % . [facility] Bilirubin.total [Mass/volume ] in Serum or PlasmaOrdered By: Mauri Chavira on 10-17-2024 Bilirubin [Mass/Vol] Bilirubin.total [Mass/volume] in Serum or Plasma 0.3-1.0 [facility] Complete Blood Count Auto Di ffon 10-17-2024 Basophils (Bld) [#/Vol] 0.1 10*3/uL Normal 0.0-0.2 [facility] Comment on above: Result Comment: PERF ORMED BY: [place] [address] PATHOLOGIST PAPERHANGER SUPERVISOR MAY HYDE M.D. Performed By: #### Vandana Cramer, BMP #### [address] Basophils/100 WBC (Bld) 0.8 % Normal . [facility] Comment on above: Performed By: #### Vandana Cramer, BMP #### [address] Eosinophils (Bld) [#/Vol] 0.1 10*3/uL Normal 0.0-0.45 [facility] Comment on above: Performed By: #### Vandana Cramer, BMP #### [place] [address] [place] Eosinophils/100 WBC (Bld) 0.7 % Normal . [facility] Comment on above: Performed By: #### Vandana Cramer, BMP #### [address] Erythrocyte distribution width (RBC) [Ratio] 15.4 % High 11.9-15.3 [facility] Comment on above: Performed By: #### Vandana Cramer, BMP #### [address] Hematocrit (Bld) [Volume fraction] 40.4 % Normal 34.0-46.4 [facility] Comment on above: Performed By: #### Vandana G, BMP #### [address] Hemoglobin (Bld) [Mass/Vol] 13.3 g/dL Normal 11.8-15.4 [facility] Comment on above: Performed By: #### Vandana G, BMP #### [address] Lymphocytes (Bld) [#/Vol] 1.4 10*3/uL Normal 1.00-4.8 [facility] Comment on above: Performed By: #### Vandana Cramer, BMP #### [address] Lymphocytes/100 WBC (Bld) 15.2 % Normal . [facility] Comment on above: Performed By: #### Vandana Cramer, BMP #### [address] MCH (RBC) [Entitic mass] 29.3 pg Normal 24.7-34.3 [facility] Comment on above: Performed By: #### Vandana Cramer, BMP #### [address] MCV (RBC) [Entitic vol] 88.8 fL Normal 80-100 [facility] Comment on above: Performed By: #### Vandana G, BMP #### [address] Mean Corpuscular HGB Conc 33.0 g/dL Normal 32.0-35.0 [facility] Comment on above: Performed By: #### Vandana G, BMP #### [address] Monocytes (Bld) [#/Vol] 0.7 10*3/uL Normal 0.0-0.8 [facility] Comment on above: Performed By: #### Vandana G, BMP #### [facility] [address] [place] [address] [place] Monocytes/100 WBC (Bld) 7.2 % Normal . [facility] Comment on above: Performed By: #### Vandana Cramer, BMP #### [facility] [address] [place] [address] [place] Neutrophils (Bld) [#/Vol] 7.0 10*3/uL Normal 1.8-7.7 [facility] Comment on above: Performed By: #### Vandana Cramer, BMP #### [place] [address] [place] Neutrophils/100 WBC (Bld) 76.1 % Normal . [facility] Comment on above: Performed By: #### Vandana Cramer, BMP #### [address] NRBC% 0.0 /100{WBC} Normal 0-0.5 [facility] Comment on above: Performed By: #### Vandana Cramer, BMP #### [address] Platelet mean volume (Bld) [Entitic vol] 9.5 fL Normal 6.3-10.7 [facility] Comment on above: Performed By: #### M Bela, BMP #### [place] [id number] [place] Platelets (Bld) [#/Vol] 183 10*3/uL Normal 150-450 [facility] Comment on above: Performed By: #### M Bela, BMP #### [place] [id number] [place] RBC (Bld) [#/Vol] 4.55 10*6/uL Normal 3.60-5.00 [facility] Comment on above: Performed By: #### M Bela, BMP #### [place] [id number] [place] WBC (Bld) [#/Vol] 9.2 10*3/uL Normal 3.8-11.6 [facility] Comment on above: Performed By: #### M Bela, BMP #### [address] Comprehensive Metabolic Pane daniele 10-17-2024 Albumin [Mass/Vol] 3.5 g/dL Normal 3.5-5.7 [facility] Comment on above: Performed By: #### Vandana Cramer, BMP #### [place] [id number] [facility] Albumin/Globulin [Mass ratio] 0.9 {ratio} Normal [facility] Comment on above: Performed By: #### Vandana Cramer, BMP #### [address] ALP [Catalytic activity/Vol] 99 U/L Normal 34-104 [facility] Comment on above: Performed By: #### Vandana Cramer, BMP #### [address] ALT [Catalytic activity/Vol] 42 U/L Normal 7-52 [facility] Comment on above: Performed By: #### Vandana Cramer, BMP #### [address] Anion gap [Moles/Vol] 14.7 mmol/L Normal 6.0-15.0 [facility] Comment on above: Performed By: #### Vandana Cramer, BMP #### [address] AST [Catalytic activity/Vol] 35 U/L Normal 13-39 [facility] Comment on above: Performed By: #### Vandana Cramer, BMP #### [address] Bilirubin [Mass/Vol] 0.6 mg/dL Normal 0.3-1.0 [facility] Comment on above: Performed By: #### Vandana Cramer, BMP #### [address] Calcium [Mass/Vol] 9.6 mg/dL Normal 8.6-10.3 [facility] Comment on above: Performed By: #### Vandana Cramer, BMP #### [address] Chloride [Moles/Vol] 99 mmol/L Normal 98-107 [facility] Comment on above: Performed By: #### M G, BMP #### [address] CO2 [Moles/Vol] 25.3 mmol/L Normal 21.0-31.0 [facility] Comment on above: Performed By: #### M G, BMP #### [address] Creatinine [Mass/Vol] 1.99 mg/dL High 0.60-1.20 [facility] Comment on above: Performed By: #### M G, BMP #### [address] Creatinine Clr Calc Pharmacy 29.98 Normal [facility] Comment on above: Performed By: #### M G, BMP #### [address] Estimated GFR 25.252 mL/Min Normal [facility] Comment on above: Performed By: #### M G, BMP #### [address] Globulin (S) [Mass/Vol] 3.9 g/dL Normal [facility] Comment on above: Performed By: #### M G, BMP #### [address] Glucose [Mass/Vol] 228 mg/dL High 70-100 [facility] Comment on above: Result Comment: Mobile Glucose Reference Range is dependent on time and content of last meal. Glucose of more than 200 mg/dL in a nonstressed, ambulatory subject supports the diagnosis of Diabetes Mellitus. ADA recommended reference range Performed By: #### M G, BMP #### [address] Potassium [Moles/Vol] 5.0 mmol/L Normal 3.5-5.1 [facility] Comment on above: Performed By: #### M G, BMP #### [address] Protein [Mass/Vol] 7.4 g/dL Normal 6.4-8.9 [facility] Comment on above: Performed By: #### Vandana Cramer, BMP #### [address] Sodium [Moles/Vol] 134 mmol/L Low 136-145 [facility] Comment on above: Performed By: #### M Bela, BMP #### [address] Urea nitrogen [Mass/Vol] 67 mg/dL High 7-25 [facility] Comment on above: Performed By: #### Vandana Cramer, BMP #### [address] Eosinophils Auto (Bld) [#/Vo l]Ordered By: Mauri Chavira on 10-17-2024 Eosinophils (Bld) [#/Vol] Automated eosinophil count 0.0-0.45 [facility] Eosinophils/100 WBC Auto (Bl d)Ordered By: Mauri Chavira on 10-17-2024 Eosinophils/100 WBC (Bld) Automated eosinophil % . [facility] Erythrocyte distribution wid th Auto (RBC) [Ratio]Ordered By: Mauri Chavira on 10-17-2024 Erythrocyte distribution width (RBC) [Ratio] Erythrocyte distribution width [Ratio] by Automated count High 11.9-15.3 [facility] Globulin Calc (S) [Mass/Vol] Ordered By: Mauri Chavira on 10-17-2024 Globulin (S) [Mass/Vol] Serum globulin measurement by calculation (mass/volume) [facility] Glucose Poct Glucometerson 1 12-18-2023 Glucose [Mass/Vol] 245 mg/dL Normal [facility] Comment on above: Result Comment: [facility] Glucose Reference Range is dependent on time and content of last meal. Glucose of more than 200 mg/dL in a nonstressed, ambulatory subject supports the diagnosis of Diabetes Mellitus. PERFORMED BY: [place] [address] PATHOLOGIST PAPERHANGER SUPERVISOR MAY HYDE M.D. Performed By: #### G LULS #### Point of Care testing , Glucose [Mass/Vol] 335 mg/dL Normal [facility] Comment on above: Result Comment: Mobile om Glucose Reference Range is dependent on time and content of last meal. Glucose of more than 200 mg/dL in a nonstressed, ambulatory subject supports the diagnosis of Diabetes Mellitus. PERFORMED BY: [place] [address] PATHOLOGIST PAPERHANGER SUPERVISOR MAY HYDE M.D. Performed By: #### Vandana Cramer, BMP #### [address] Glucose [Mass/Vol] 324 mg/dL Normal [facility] Comment on above: Result Comment: Mobile om Glucose Reference Range is dependent on time and content of last meal. Glucose of more than 200 mg/dL in a nonstressed, ambulatory subject supports the diagnosis of Diabetes Mellitus. PERFORMED BY: [place] [address] PATHOLOGIST PAPERHANGER SUPERVISOR MAY HYDE M.D. Performed By: #### Vandana Cramer, BMP #### [address] Glucose [Mass/Vol] 253 mg/dL Normal [facility] Comment on above: Result Comment: Mobile om Glucose Reference Range is dependent on time and content of last meal. Glucose of more than 200 mg/dL in a nonstressed, ambulatory subject supports the diagnosis of Diabetes Mellitus. PERFORMED BY: [place] [address] PATHOLOGIST PAPERHANGER SUPERVISOR MAY HYDE M.D. Performed By: #### Vandana Cramer, BMP #### [address] Hematocrit Auto (Bld) [Volum e fraction]Ordered By: Mauri Chavira on 10-17-2024 Hematocrit (Bld) [Volume fraction] Hematocrit [Volume Fraction] of Blood by Automated count 34.0-46.4 [facility] Hemoglobin [Mass/volume] in BloodOrdered By: Mauri Chavira on 10-17-2024 Hemoglobin (Bld) [Mass/Vol] Hemoglobin [Mass/volume] in Blood 11.8-15.4 [facility] Leukocytes [#/volume] correc gali for nucleated erythrocytes in Blood by Automated counOrdered By: Mauri Chavira on 10-17-2024 WBC corrected for nucl RBC Auto (Bld) [#/Vol] Leukocytes [#/volume] corrected for nucleated erythrocytes in Blood by Automated coun 3.8-11.6 [facility] Lymphocytes Auto (Bld) [#/Vo l]Ordered By: Mauri Chavira on 10-17-2024 Lymphocytes (Bld) [#/Vol] Lymphocytes [#/volume] in Blood by Automated count 1.00-4.8 [facility] Lymphocytes/100 WBC Auto (Bl d)Ordered By: Mauri Chavira on 10-17-2024 Lymphocytes/100 WBC (Bld) Lymphocytes/100 leukocytes in Blood by Automated count . [facility] MCH Auto (RBC) [Entitic mass ]Ordered By: Mauri Chavira on 10-17-2024 MCH (RBC) [Entitic mass] MCH [Entitic mass] by Automated count 24.7-34.3 [facility] MCHC Auto (RBC) [Mass/Vol]Or dered By: Mauri Chavira on 10-17-2024 MCHC (RBC) [Mass/Vol] MCHC [Mass/volume] by Automated count 32.0-35.0 [facility] MCV Auto (RBC) [Entitic vol] Ordered By: Mauri Chavira on 10-17-2024 MCV (RBC) [Entitic vol] MCV [Entitic volume] by Automated count 80-100 [facility] Magnesiumon 10-17-2024 Magnesium [Mass/Vol] 1.6 mg/dL Low 1.9-2.7 [facility] Comment on above: Result Comment: PERF ORMED BY: [facility] [address] [facility] [address] PATHOLOGIST PAPERHANGER SUPERVISOR MAY HYDE M.D. Performed By: #### M Bela, BMP #### [facility] [address] [place] [id number] [facility] Monocytes Auto (Bld) [#/Vol] Ordered By: Mauri Chavira on 10-17-2024 Monocytes (Bld) [#/Vol] Automated blood monocyte count 0.0-0.8 [facility] Monocytes/100 WBC Auto (Bld) Ordered By: Mauri Chavira on 10-17-2024 Monocytes/100 WBC (Bld) Automated monocyte % . [facility] Neutrophils Auto (Bld) [#/Vo l]Ordered By: Mauri Chavira on 10-17-2024 Neutrophils (Bld) [#/Vol] Neutrophils [#/volume] in Blood by Automated count 1.8-7.7 [facility] Neutrophils/100 WBC Auto (Bl d)Ordered By: Mauri Chavira on 10-17-2024 Neutrophils/100 WBC (Bld) Automated neutrophil % . [facility] Nucleated erythrocytes [Pres ence] in Blood by Automated countOrdered By: Mauri Chavira on 10-17-2024 Nucleated RBC Auto Ql (Bld) Nucleated erythrocytes [Presence] in Blood by Automated count 0-0.5 [facility] Platelet mean volume Auto (B ld) [Entitic vol]Ordered By: Mauri Chavira on 10-17-2024 Platelet mean volume (Bld) [Entitic vol] Platelet mean volume [Entitic volume] in Blood by Automated count 6.3-10.7 [facility] Platelets Auto (Bld) [#/Vol] Ordered By: Mauri Chavira on 10-17-2024 Platelets (Bld) [#/Vol] Platelets [#/volume] in Blood by Automated count 150-450 [facility] Protein [Mass/volume] in Ser um or PlasmaOrdered By: Mauri Chavira on 10-17-2024 Protein [Mass/Vol] Protein [Mass/volume ] in Serum or Plasma 6.4-8.9 [facility] RBC Auto (Bld) [#/Vol]Ordere d By: Mauri Chavira on 10-17-2024 RBC (Bld) [#/Vol] Erythrocytes [#/volu me] in Blood by Automated count 3.60-5.00 [facility] Serum or plasma albumin/glob ulin mass ratioOrdered By: Mauri Chavira on 10-17-2024 Albumin/Globulin [Mass ratio] Serum or plasma albumin/globulin mass ratio [facility] WBC Auto (Bld) [#/Vol]Ordere d By: Mauri Chavira on 10-17-2024 WBC (Bld) [#/Vol] Leukocytes [#/volume ] in Blood by Automated count 3.8-11.6 [facility] B-Type Natriuretic Peptideon 10-16-2024 Natriuretic peptide B (Bld) [Mass/Vol] 547.0 pg/mL High 5-100 [facility] Comment on above: Result Comment: PERF ORMED BY: [facility] [address] [place] [address] PATHOLOGIST PAPERHANGER SUPERVISOR MAY HYDE M.D. Performed By: #### M G, BMP #### [address] Basic Metabolic Panelon 12-0 Anion gap [Moles/Vol] 18.1 mmol/L High 6.0-15.0 [facility] Comment on above: Performed By: #### B MP ####[address] Calcium [Mass/Vol] 9.7 mg/dL Significant change down 8.6-10.3 [facility] Comment on above: Performed By: #### B MP ####[address] Chloride [Moles/Vol] 100 mmol/L Normal 98-107 [facility] Comment on above: Performed By: #### B MP ####[address] CO2 [Moles/Vol] 23.3 mmol/L Normal 21.0-31.0 [facility] Comment on above: Performed By: #### B MP ####[address] Creatinine [Mass/Vol] 2.14 mg/dL High 0.60-1.20 [facility] Comment on above: Performed By: #### B MP ####[place] [address] [place] [address] [facility] Creatinine Clr Calc Pharmacy 27.88 Normal [facility] Comment on above: Result Comment: PERF ORMED BY: [facility] [address] [place] [id number] PATHOLOGIST PAPERHANGER SUPERVISOR MAY HYDE M.D. Performed By: #### B MP ####[place] [address] [place] [id number] [facility] Estimated GFR 23.142 mL/Min Normal [facility] Comment on above: Performed By: #### B MP ####[place] [address] [place] [id number] [facility] Glucose [Mass/Vol] 301 mg/dL High 70-100 [facility] Comment on above: Result Comment: [facility] Glucose Reference Range is dependent on time and content of last meal. Glucose of more than 200 mg/dL in a nonstressed, ambulatory subject supports the diagnosis of Diabetes Mellitus. ADA recommended reference range Performed By: #### B MP ####[place] [id number] [facility] Potassium [Moles/Vol] 6.4 mmol/L Off scale high 3.5-5.1 [facility] Comment on above: Result Comment: Resu lts called at 1909 on 10/16/24 Critical Result Called to and read back by: ISMA AVILA/RENETTA at: 10/16/2024 19:04:24 by:[id number] Performed By: #### B MP ####[place] [id number] [facility] Sodium [Moles/Vol] 135 mmol/L Low 136-145 [facility] Comment on above: Performed By: #### B MP ####[place] [id number] [facility] Urea nitrogen [Mass/Vol] 74 mg/dL High 7-25 [facility] Comment on above: Performed By: #### B MP ####[place] [address] [place] [id number] [facility] Anion gap [Moles/Vol] 13.8 mmol/L Normal 6.0-15.0 [facility] Comment on above: Performed By: #### Vandana Cramer, BMP #### [facility] [address] Calcium [Mass/Vol] 8.1 mg/dL Low 8.6-10.3 [facility] Comment on above: Performed By: #### Vandana Cramer, BMP #### [address] Chloride [Moles/Vol] 104 mmol/L Normal 98-107 [facility] Comment on above: Performed By: #### Vandana Cramer, BMP #### [address] CO2 [Moles/Vol] 21.5 mmol/L Normal 21.0-31.0 [facility] Comment on above: Performed By: #### Vandana Cramer, BMP #### [place] [address] [place] Creatinine [Mass/Vol] 2.25 mg/dL High 0.60-1.20 [facility] Comment on above: Performed By: #### Vandana Cramer, BMP #### [place] [address] [place] Creatinine Clr Calc Pharmacy 5.50 Normal [facility] Comment on above: Performed By: #### Vandana Cramer, BMP #### [place] [address] [place] Estimated GFR 21.792 mL/Min Normal [facility] Comment on above: Performed By: #### Vandana G, BMP #### [address] Glucose [Mass/Vol] 388 mg/dL High 70-100 [facility] Comment on above: Result Comment: Mobile Glucose Reference Range is dependent on time and content of last meal. Glucose of more than 200 mg/dL in a nonstressed, ambulatory subject supports the diagnosis of Diabetes Mellitus. ADA recommended reference range Performed By: #### Vandana Cramer, BMP #### [address] Potassium [Moles/Vol] 6.3 mmol/L Off scale high 3.5-5.1 [facility] Comment on above: Result Comment: Crit ical Result Called to and read back by: LYNN KLINE at: 10/16/2024 14:01:43 by:[id number] Performed By: #### M G, BMP #### [address] Sodium [Moles/Vol] 133 mmol/L Low 136-145 [facility] Comment on above: Performed By: #### M G, BMP #### [address] Urea nitrogen [Mass/Vol] 73 mg/dL High 7-25 [facility] Comment on above: Performed By: #### Vandana G, BMP #### [address] Blood carbon dioxide, total measurement by calculation (moles/volume)Ordered By: Kavin Escobar on 10-16-2024 CO2 Calc (Bld) [Moles/Vol] Blood carbon dioxide, total measurement by calculation (moles/volume) Low 23-29 [facility] Chloride (Bld) [Moles/Vol]Or dered By: Kavin Escobar on 10-16-2024 Chloride [Moles/Vol] Whole blood chlorid e measurement 98-109 [facility] Complete Blood Count Auto Di ffon 10-16-2024 Basophils (Bld) [#/Vol] 0.1 10*3/uL Normal 0.0-0.2 [facility] Comment on above: Result Comment: PERF ORMED BY: [place] [address] PATHOLOGIST PAPERHANGER SUPERVISOR MAY HYDE M.D. Performed By: #### Vandana G, BMP #### [address] Basophils/100 WBC (Bld) 0.7 % Normal . [facility] Comment on above: Performed By: #### M G, BMP #### [facility] [address] [place] [address] [place] Eosinophils (Bld) [#/Vol] 0.1 10*3/uL Normal 0.0-0.45 [facility] Comment on above: Performed By: #### M G, BMP #### [facility] [address] [id number] [place] Eosinophils/100 WBC (Bld) 0.6 % Normal . [facility] Comment on above: Performed By: #### M G, BMP #### [address] Erythrocyte distribution width (RBC) [Ratio] 15.2 % Normal 11.9-15.3 [facility] Comment on above: Performed By: #### M G, BMP #### [address] Hematocrit (Bld) [Volume fraction] 35.5 % Normal 34.0-46.4 [facility] Comment on above: Performed By: #### M G, BMP #### [address] Hemoglobin (Bld) [Mass/Vol] 11.6 g/dL Low 11.8-15.4 [facility] Comment on above: Performed By: #### M G, BMP #### [place] [address] [place] Lymphocytes (Bld) [#/Vol] 1.2 10*3/uL Normal 1.00-4.8 [facility] Comment on above: Performed By: #### M G, BMP #### [address] [id number] [place] Lymphocytes/100 WBC (Bld) 12.5 % Normal . [facility] Comment on above: Performed By: #### M G, BMP #### [address] MCH (RBC) [Entitic mass] 29.0 pg Normal 24.7-34.3 [facility] Comment on above: Performed By: #### M G, BMP #### [address] MCV (RBC) [Entitic vol] 89.1 fL Normal 80-100 [facility] Comment on above: Performed By: #### M G, BMP #### [address] Mean Corpuscular HGB Conc 32.6 g/dL Normal 32.0-35.0 [facility] Comment on above: Performed By: #### Vandana G, BMP #### [place] [address] [place] Monocytes (Bld) [#/Vol] 0.7 10*3/uL Normal 0.0-0.8 [facility] Comment on above: Performed By: #### Vandana G, BMP #### [place] [address] [place] Monocytes/100 WBC (Bld) 18.11 % Normal 0.00-20.00 [facility] Comment on above: Performed By: #### Vandana G, BMP #### [place] [address] [place] Monocytes/100 WBC (Bld) 6.8 % Normal . [facility] Comment on above: Performed By: #### Vandana G, BMP #### [address] Neutrophils (Bld) [#/Vol] 8.0 10*3/uL High 1.8-7.7 [facility] Comment on above: Performed By: #### Vandana G, BMP #### [place] [address] [place] Neutrophils/100 WBC (Bld) 79.4 % Normal . [facility] Comment on above: Performed By: #### Vandana G, BMP #### [address] NRBC% 0.1 /100{WBC} Normal 0-0.5 [facility] Comment on above: Performed By: #### Vandana G, BMP #### [facility] [address] [id number] [facility] Platelet mean volume (Bld) [Entitic vol] 9.7 fL Normal 6.3-10.7 [facility] Comment on above: Performed By: #### M G, BMP #### [facility] [address] [place] [address] [facility] Platelets (Bld) [#/Vol] 181 10*3/uL Normal 150-450 [facility] Comment on above: Performed By: #### M G, BMP #### [facility] [address] [id number] [facility] RBC (Bld) [#/Vol] 3.98 10*6/uL Normal 3.60-5.00 [facility] Comment on above: Performed By: #### M G, BMP #### [facility] [address] [id number] [facility] WBC (Bld) [#/Vol] 10.0 10*3/uL Normal 3.8-11.6 [facility] Comment on above: Performed By: #### Vandana G, BMP #### [address] Creatine Kinaseon 10-16-2024 CK [Catalytic activity/Vol] 37 U/L Normal 30-223 [facility] Comment on above: Performed By: #### M G, BMP #### [address] [id number] [facility] Creatine kinase [Enzymatic a ctivity/volume] in Serum or PlasmaOrdered By: Jorge Luis Zavala on 10-16-2024 CK [Catalytic activity/Vol] Creatine kinase [Enzymatic activity/volume] in Serum or Plasma 30- [facility] Creatinine (Bld) [Mass/Vol]O rdered By: Kavin Escobar on 10-16-2024 Creatinine [Mass/Vol] Whole blood creati nine measurement High 0.6-1.3 [facility] Comment on above: ER/ESD physician is notified/shown all ISTAT results.Critical values may be confirmed by laboratory testing ifdeemed necessary by ER attending doctor. ECG 12 lead ECGon 10-16-2024 ECG 12 lead ECG [facility] Main [address] [address] Electrocardiograph Report Signed Patient: Joe Call MR#: [id number] 0 : 1945 Acct:[id number] Age/Sex: 79 / F ADM Date: 10/16/24 Loc: Room: [address] [place] [address] Type: DIS IN Attending Dr: Kavin Escobar [...] Moreno MD 1 12/24/23 1516 Normal [facility] ECG 12 lead ECG [address] [address] Electrocardiograph Report Signed Patient: Joe Call MR#: [id number] 0 : 1945 Acct:[id number] Age/Sex: 79 / F ADM Date: 10/16/24 Loc: Room: 8Q8814-2 Type: ADM IN Attending Dr: Mauri Chavira [...] Jorge Luis Zavala DO 1925 Normal [facility] ECG 12 lead ECG [facility] Main [place] [address] [place] [address] Electrocardiograph Report Signed Patient: Joe Call MR#: [id number] 0 : 1945 Acct:[id number] Age/Sex: 79 / F ADM Date: 10/16/24 Loc: Room: [address] [place] [address] Type: ADM IN Attending Dr: Mauri Chavira [...] Jorge Luis Zavala DO 1925 Normal [facility] Glucose Glucometer (BldC) [M ass/Vol]Ordered By: Kavin Escobar on 10-16-2024 Glucose [Mass/Vol] Capillary blood gluc ose measurement by glucometer (mass/volume) High 70-105 [facility] Glucose Poct Glucometerson 1 12-17-2023 Glucose [Mass/Vol] 266 mg/dL Normal [facility] Comment on above: Result Comment: Mobile Glucose Reference Range is dependent on time and content of last meal. Glucose of more than 200 mg/dL in a nonstressed, ambulatory subject supports the diagnosis of Diabetes Mellitus. PERFORMED BY: [place] [address] PATHOLOGIST PAPERHANGER SUPERVISOR MAY HYDE M.D. Performed By: #### M G, BMP #### [address] Hemoglobin Calc (Bld) [Mass/ Vol]Ordered By: Kavin Escobar on 10-16-2024 Hemoglobin (Bld) [Mass/Vol] Blood hemoglobin measurement by calculation (mass/volume) 12.0-17.0 [facility] INR in Platelet poor plasma by Coagulation assayOrdered By: Jorge Luis Zavala on 10-16-2024 INR Coag (PPP) [Relative time] INR in Platelet poor plasma by Coagulation assay [facility] Comment on above: INR Therapeutic Rang e [...] [Moles/Vol] 104.0 mmol/L Normal 98-109 [facility] Comment on above: Performed By: #### G LULS #### Point of Care testing , CO2 [Moles/Vol] 22 mmol/L Low 23-29 [facility] Comment on above: Performed By: #### G LULS #### Point of Care testing , Creatinine [Mass/Vol] 2.3 mg/dL High 0.6-1.3 [facility] Comment on above: Result Comment: ER/E SD physician is notified/shown all ISTAT results. Critical values may be confirmed by laboratory testing if deemed necessary by ER attending doctor. Performed By: #### G LULS #### Point of Care testing , Glucose [Mass/Vol] 390 mg/dL High 70-105 [facility] Comment on above: Result Comment: PERF ORMED BY: [facility] [place] [address] PATHOLOGIST PAPERHANGER SUPERVISOR MAY HYDE M.D. Performed By: #### G LULS #### Point of Care testing , Hemoglobin (Bld) [Mass/Vol] 12.2 g/dL Normal 12.0-17.0 [facility] Comment on above: Performed By: #### G LULS #### Point of Care testing , ISTAT Ionized Calcium 1.11 mol/L Low 1.12-1.32 [facility] Comment on above: Performed By: #### G LULS #### Point of Care testing , Potassium [Moles/Vol] 6.4 mmol/L Off scale high 3.5-4.9 [facility] Comment on above: Performed By: #### G LULS #### Point of Care testing , Sodium [Moles/Vol] 134 mmol/L Low 138-146 [facility] Comment on above: Performed By: #### G LULS #### Point of Care testing , Urea nitrogen [Mass/Vol] 69 mg/dL High 8-26 [facility] Comment on above: Performed By: #### G LULS #### Point of Care testing , ISTAT ER Chem8+ PanelOrdered By: Kavin Escobar on 10-16-2024 Hematocrit (Bld) [Volume fraction] 36.0 % Low 38.0-51.0 [facility] Comment on above: Performed By: #### G LULS #### Point of Care testing , Magnesiumon 10-16-2024 Magnesium [Mass/Vol] 1.4 mg/dL Low 1.9-2.7 [facility] Comment on above: Result Comment: PERF ORMED BY: [address] [place] [address] PATHOLOGIST PAPERHANGER SUPERVISOR MAY HYDE M.D. Performed By: #### Vandana Cramer, BMP #### [facility] [address] [place] [address] [facility] Monocyte distribution width [Entitic volume] in Blood by AutomatedOrdered By: Jorge Luis Zavala on 10-16-2024 Monocyte distribution width Auto (Bld) [Entitic vol] Monocyte distribution width [Entitic volume] in Blood by Automated 0.00-20.00 [facility] Natriuretic peptide B [Mass/ Vol]Ordered By: Jorge Luis Zavala on 10-16-2024 Natriuretic peptide B (Bld) [Mass/Vol] BNP ser/plas High 5-100 [facility] Potassium (Bld) [Moles/Vol]O rdered By: Kavin Escobar on 10-16-2024 Potassium [Moles/Vol] Whole blood potass ium measurement Critically high 3.5-4.9 [facility] Prothrombin Time INRon 10-16 INR Coag (PPP) [Relative time] 2.6 {INR} Normal [facility] Comment on [...] heart valves: 3 - 4.5 PERFORMED BY: [address] [place] [address] PATHOLOGIST PAPERHANGER SUPERVISOR MAY HYDE M.D. Performed By: #### Vandana Cramer, BMP #### [facility] [address] [place] [address] [facility] PT Coag (PPP) [Time] 28.9 s High 9.0-12.9 [facility] Comment on above: Result Comment: A he matocrit value greater than 55% may lead to inaccurate results in coagulation testing. Patients having hematocrit values >55% require a special collection tube for coagulation studies. Please contact the laboratory at [phone] for redraw instructions. Performed By: #### KAREN Hansen #### [facility] [address] [place] [address] Prothrombin time (PT)Ordered By: Jorge Luis Zavala on 10-16-2024 PT Coag (PPP) [Time] Prothrombin time (PT) High 9.0- 12.9 [facility] Comment on above: A hematocrit value g reater than 55% may lead to inaccurate results in coagulation testing. Patients having hematocrit values >55% require a special collection tube for coagulation studies. Please contact the laboratory at [phone] for redraw instructions. Sodium (Bld) [Moles/Vol]Orde red By: Kavin Escobar on 10-16-2024 Sodium [Moles/Vol] Whole blood sodium measurement Low 138-146 [facility] Troponin I High Sensitivityo n 10-16-2024 Troponin I High Sensitivity 9.9 pg/mL Normal 0.0-15.0 [facility] Comment on above: Result Comment: PERF ORMED BY: [address] [place] [address] PATHOLOGIST PAPERHANGER SUPERVISOR MAY HYDE M.D. Performed By: #### KAREN Hansen #### [address] Troponin I.cardiac [Mass/vol ume] in Serum or Plasma by Detection limit <= 0.01 ng/Ordered By: Jorge Luis Zavala on 10-16-2024 Troponin I.cardiac DL <= 0.01 ng/mL [Mass/Vol] Troponin I.cardiac [Mass/volume] in Serum or Plasma by Detection limit <= 0.01 ng/ 0.0-15.0 [facility] Urea nitrogen (Bld) [Mass/Vo l]Ordered By: Kavin Escobar on 10-16-2024 Urea nitrogen [Mass/Vol] Blood urea nitrogen (BUN) measurement in whole blood (mass/volume) High 8-26 [facility] Whole blood ionized calcium measurement (moles/volume)Ordered By: Kavin Escobar on 10-16-2024 Calcium.ionized (Bld) [Moles/Vol] Whole blood ionized calcium measurement (moles/volume) Low 1.12-1.32 [facility] XR chest 1V portableon 10-16 XR chest 1V portable [facility] Main [place] [address] [place] [address] XRay Report Signed Patient: Joe Call MR#: [id number] 0 : 1945 Acct:[id number] Age/Sex: 79 / F ADM Date: 10/16/24 Loc: ER Room: Type: [facility] ER Attending Dr: Copies to: Jorge Lusi Zavala DO Ordering Provider: Jorge Luis Zavala [...] Jarred Randolph M.D.10/16/2024 2:10 PM Dictation Location: [facility]-- Transcribed By: [facility] 10/16/24 1410 Dictated By: Jarred Randolph DO 10/16/24 1407 Signed By: 10/16/24 1410 Normal [facility] 37on 10-08-2024 37 *Cut lisinopril in h halfway to 10mg daily. *Follow-up labs in 2 weeks. *Limit fluid intake to 64oz or 2 liters a day. Normal [facility] Office Visiton 10-08-2024 Follow-up visit [id number] Joe Call 1945 F Date Provider Department Center 10/08/2024 YAMEL OCAMPO Family History Problem Relation Age of Onset Coronary artery disease Other Diabetes Other Polycystic kidney disease Other Family Status - Relation Status Age at Other Level of Service:37416 [place] OFFICE/OUTPATIENT ESTABLISHED MOD MDM 30 MIN Reason for Visit and Comments: Congestive Heart Failure [127] Hypertension [786708] Atrial Fibrillation [80] Normal [facility] Estimated glomerular filtrat ion rate (GFR) non- Americanon 09-29-2024 GFR/1.73 sq M.predicted among non-blacks MDRD (S/P/Bld) [Vol rate/Area] Estimated glomerular filtration rate (GFR) non- Low >=60 mL/min/1.73 m 2 [facility] Laboratory - Chemistry and C hemistry - challengeon 09-29-2024 Calcium [Mass/Vol] 8.8 mg/dL 8.5-10.1 [facility] Chloride [Moles/Vol] 102 mmol/L 98-107 [facility] CO2 [Moles/Vol] 24.9 mmol/L 21.0-32.0 [facility] Creatinine [Mass/Vol] 1.92 mg/dL High 0.55-1.02 [facility] GFR/1.73 sq M.predicted MDRD (S/P/Bld) [Vol rate/Area] 31 mL/min/{1.73_m2} Low >=60 mL/min/1.73 m 2 [facility] Glucose [Mass/Vol] 387 mg/dL High 74-106 [facility] Potassium [Moles/Vol] 5.0 mmol/L 3.5-5.1 [facility] Sodium [Moles/Vol] 136 mmol/L 136-145 [facility] Urea nitrogen [Mass/Vol] 64.0 mg/dL High 7.0-18.0 [facility] Urea nitrogen/Creatinine [Mass ratio] 33.3 mg/mg [facility] Serum or plasma anion gap de terminationon 09-29-2024 Anion gap [Moles/Vol] Serum or plasma an ion gap determination [facility] 37on 09-03-2024 37 *Your kidney [...] of breath or worsening leg swelling. Normal [facility] Office Visiton 09-03-2024 Follow-up visit [id number] Joe Call 1945 F Date Provider Department Center 09/03/2024 YAMEL OCAMPO Family History Problem Relation Age of Onset Coronary artery disease Other Diabetes Other Polycystic kidney disease Other Family Status - Relation Status Age at Other Level of Service:70912 [place] OFFICE/OUTPATIENT ESTABLISHED MOD MDM 30 MIN Reason for Visit and Comments: Congestive Heart Failure [127] Atrial Fibrillation [80] Hypertension [262451] Normal [facility] Office Visiton 08-20-2024 Follow-up visit [id number] Joe Call 1945 F Date Provider Department Center 08/20/2024 YAMEL OCAMPO Family History Problem Relation Age of Onset Coronary artery disease Other Diabetes Other Polycystic kidney disease Other Family Status - Relation Status Age at Other Level of Service:56943 [place] OFFICE/OUTPATIENT ESTABLISHED MOD MDM 30 MIN Reason for Visit and Comments: Congestive Heart Failure [127] Normal [facility] Basophils Auto (Bld) [#/Vol] on 07-25-2024 Basophils (Bld) [#/Vol] 0.1 10 3/uL 0.0-0.1 [facility] Basophils/100 WBC Auto (Bld) on 07-25-2024 Basophils/100 WBC (Bld) 1.2 % 0.2-2.0 [facility] Eosinophils/100 WBC Auto (Bl d)on 07-25-2024 Eosinophils/100 WBC (Bld) 1.6 % 0.9-7.0 [facility] Erythrocyte distribution wid th Auto (RBC) [Ratio]on 07-25-2024 Erythrocyte distribution width (RBC) [Ratio] 13.7 % 11.0-15.0 [facility] Estimated glomerular filtrat ion rate (GFR) non- Americanon 07-25-2024 GFR/1.73 sq M.predicted among non-blacks MDRD (S/P/Bld) [Vol rate/Area] 47 mL/min/{1.73_m2} Low >=60 [facility] Globulin Calc (S) [Mass/Vol] on 07-25-2024 Globulin (S) [Mass/Vol] 4.7 g/dL [facility] Hematocrit Auto (Bld) [Volum e fraction]on 07-25-2024 Hematocrit (Bld) [Volume fraction] 33.6 % Low 36.0-48.0 [facility] Hemoglobin [Mass/volume] in Bloodon 07-25-2024 Hemoglobin (Bld) [Mass/Vol] 11.0 g/dL Low 12.0-16.0 [facility] Laboratory - Chemistry and C hemistry - challengeon 07-25-2024 Albumin [Mass/Vol] 2.3 g/dL Low 3.4-5.0 [facility] ALP [Catalytic activity/Vol] 101 U/L 46-116 [facility] ALT [Catalytic activity/Vol] 14 U/L 14-59 [facility] AST [Catalytic activity/Vol] 13 U/L Low 15-37 [facility] Bilirubin [Mass/Vol] 0.8 mg/dL 0.2-1.0 [facility] Calcium [Mass/Vol] 8.6 mg/dL 8.5-10.1 [facility] Chloride [Moles/Vol] 102 mmol/L 98-107 [facility] CO2 [Moles/Vol] 27.8 mmol/L 21.0-32.0 [facility] Creatinine [Mass/Vol] 1.13 mg/dL High 0.55-1.02 [facility] GFR/1.73 sq M.predicted MDRD (S/P/Bld) [Vol rate/Area] 56 mL/min/{1.73_m2} Low >=60 [facility] Glucose [Mass/Vol] 228 mg/dL High 74-106 [facility] Potassium [Moles/Vol] 3.7 mmol/L 3.5-5.1 [facility] Protein [Mass/Vol] 7.0 g/dL 6.4-8.2 [facility] Sodium [Moles/Vol] 140 mmol/L 136-145 [facility] Urea nitrogen [Mass/Vol] 26.0 mg/dL High 7.0-18.0 [facility] Urea nitrogen/Creatinine [Mass ratio] 23.0 mg/mg [facility] Laboratory - Hematology and Cell countson 07-25-2024 Immature granulocytes/100 WBC (Bld) 0.2 % 0.0-0.5 [facility] Leukocytes [#/volume] correc gali for nucleated erythrocytes in Blood by Automated counon 07-25-2024 WBC corrected for nucl RBC Auto (Bld) [#/Vol] 8.7 10 3/uL 4.0-11.0 [facility] Lymphocytes Auto (Bld) [#/Vo l]on 07-25-2024 Lymphocytes (Bld) [#/Vol] 1.4 10 3/uL 1.2-3.8 [facility] Lymphocytes/100 WBC Auto (Bl d)on 07-25-2024 Lymphocytes/100 WBC (Bld) 15.9 % Low 20.5-60.0 [facility] MCH Auto (RBC) [Entitic mass ]on 07-25-2024 MCH (RBC) [Entitic mass] 29.7 pg 26.7-34.0 [facility] MCHC Auto (RBC) [Mass/Vol]on 07-25-2024 MCHC (RBC) [Mass/Vol] 32.7 g/dL 29.9-35.2 [facility] MCV Auto (RBC) [Entitic vol] on 07-25-2024 MCV (RBC) [Entitic vol] 90.8 fL 81.0-99.0 [facility] Monocytes Auto (Bld) [#/Vol] on 07-25-2024 Monocytes (Bld) [#/Vol] 0.7 10 3/uL 0.3-0.8 [facility] Monocytes/100 WBC Auto (Bld) on 07-25-2024 Monocytes/100 WBC (Bld) 8.2 % 1.7-12.0 [facility] Neutrophils Auto (Bld) [#/Vo l]on 07-25-2024 Neutrophils (Bld) [#/Vol] 6.3 10 3/uL 1.4-6.5 [facility] Neutrophils/100 WBC Auto (Bl d)on 07-25-2024 Neutrophils/100 WBC (Bld) 72.9 % 43.0-75.0 [facility] No Panel Informationon 07-25 Eosinophils # (Auto) 0.1 10 3/uL 0.0-0.7 [facility] Immature Granulocyte # (Auto) 0.02 10 3/uL 0.00-0.03 [facility] Platelet mean volume Auto (B ld) [Entitic vol]on 07-25-2024 Platelet mean volume (Bld) [Entitic vol] 10.3 fL 9.5-13.5 [facility] Platelets Auto (Bld) [#/Vol] on 07-25-2024 Platelets (Bld) [#/Vol] 239 10 3/uL 150-450 [facility] RBC Auto (Bld) [#/Vol]on RBC (Bld) [#/Vol] 3.70 10 6/uL Low 4.20-5.40 [facility] Serum or plasma albumin/glob ulin mass ratioon 07-25-2024 Albumin/Globulin [Mass ratio] 0.5 {ratio} [facility] Serum or plasma anion gap de terminationon 07-25-2024 Anion gap [Moles/Vol] 13.9 mmol[facility] Basophils Auto (Bld) [#/Vol] on 07-24-2024 Basophils (Bld) [#/Vol] 0.1 10 3/uL 0.0-0.1 [facility] Basophils/100 WBC Auto (Bld) on 07-24-2024 Basophils/100 WBC (Bld) 0.7 % 0.2-2.0 [facility] Eosinophils/100 WBC Auto (Bl d)on 07-24-2024 Eosinophils/100 WBC (Bld) 1.7 % 0.9-7.0 [facility] Erythrocyte distribution wid th Auto (RBC) [Ratio]on 07-24-2024 Erythrocyte distribution width (RBC) [Ratio] 13.7 % 11.0-15.0 [facility] Estimated glomerular filtrat ion rate (GFR) non- Americanon 07-24-2024 GFR/1.73 sq M.predicted among non-blacks MDRD (S/P/Bld) [Vol rate/Area] 48 mL/min/{1.73_m2} Low >=60 [facility] Hematocrit Auto (Bld) [Volum e fraction]on 07-24-2024 Hematocrit (Bld) [Volume fraction] 34.5 % Low 36.0-48.0 [facility] Hemoglobin [Mass/volume] in Bloodon 07-24-2024 Hemoglobin (Bld) [Mass/Vol] 11.2 g/dL Low 12.0-16.0 [facility] Laboratory - Chemistry and C hemistry - challengeon 07-24-2024 Calcium [Mass/Vol] 8.9 mg/dL 8.5-10.1 [facility] Chloride [Moles/Vol] 104 mmol/L 98-107 [facility] CO2 [Moles/Vol] 26.1 mmol/L 21.0-32.0 [facility] Creatinine [Mass/Vol] 1.11 mg/dL High 0.55-1.02 [facility] GFR/1.73 sq M.predicted MDRD (S/P/Bld) [Vol rate/Area] 58 mL/min/{1.73_m2} Low >=60 [facility] Glucose [Mass/Vol] 247 mg/dL High 74-106 [facility] Natriuretic peptide B (Bld) [Mass/Vol] 6277.0 pg/mL High <=1800.0 [facility] Comment on above: RESULTS CALLED TO YOEL STEWARD RN IN ER BY Mira Martinez at 1430 Potassium [Moles/Vol] 4.1 mmol/L 3.5-5.1 [facility] Sodium [Moles/Vol] 141 mmol/L 136-145 [facility] Urea nitrogen [Mass/Vol] 28.0 mg/dL High 7.0-18.0 [facility] Urea nitrogen/Creatinine [Mass ratio] 25.2 mg/mg [facility] Laboratory - Hematology and Cell countson 07-24-2024 Immature granulocytes/100 WBC (Bld) 0.3 % 0.0-0.5 [facility] Leukocytes [#/volume] correc gali for nucleated erythrocytes in Blood by Automated counon 07-24-2024 WBC corrected for nucl RBC Auto (Bld) [#/Vol] 9.7 10 3/uL 4.0-11.0 [facility] Lymphocytes Auto (Bld) [#/Vo l]on 07-24-2024 Lymphocytes (Bld) [#/Vol] 0.9 10 3/uL Low 1.2-3.8 [facility] Lymphocytes/100 WBC Auto (Bl d)on 07-24-2024 Lymphocytes/100 WBC (Bld) 9.2 % Low 20.5-60.0 [facility] MCH Auto (RBC) [Entitic mass ]on 07-24-2024 MCH (RBC) [Entitic mass] 29.9 pg 26.7-34.0 [facility] MCHC Auto (RBC) [Mass/Vol]on 07-24-2024 MCHC (RBC) [Mass/Vol] 32.5 g/dL 29.9-35.2 [facility] MCV Auto (RBC) [Entitic vol] on 07-24-2024 MCV (RBC) [Entitic vol] 92.0 fL 81.0-99.0 [facility] Monocytes Auto (Bld) [#/Vol] on 07-24-2024 Monocytes (Bld) [#/Vol] 0.5 10 3/uL 0.3-0.8 [facility] Monocytes/100 WBC Auto (Bld) on 07-24-2024 Monocytes/100 WBC (Bld) 5.3 % 1.7-12.0 [facility] Neutrophils Auto (Bld) [#/Vo l]on 07-24-2024 Neutrophils (Bld) [#/Vol] 8.0 10 3/uL High 1.4-6.5 [facility] Neutrophils/100 WBC Auto (Bl d)on 07-24-2024 Neutrophils/100 WBC (Bld) 82.8 % High 43.0-75.0 [facility] No Panel Informationon 07-24 Eosinophils # (Auto) 0.2 10 3/uL 0.0-0.7 [facility] Immature Granulocyte # (Auto) 0.03 10 3/uL 0.00-0.03 [facility] Troponin I High Sensitivity 20.5 pg/mL 4.0-51.3 [facility] Comment on above: CUT-OFF POINTS [...] volume (Bld) [Entitic vol] 10.4 fL 9.5-13.5 [facility] Platelets Auto (Bld) [#/Vol] on 07-24-2024 Platelets (Bld) [#/Vol] 236 10 3/uL 150-450 [facility] RBC Auto (Bld) [#/Vol]on RBC (Bld) [#/Vol] 3.75 10 6/uL Low 4.20-5.40 [facility] Serum or plasma anion gap de terminationon 07-24-2024 Anion gap [Moles/Vol] 15.0 mmol/L [facility] Urine Cultureon 07-17-2024 Bacteria identified Cx Nom (U) ORGANISM: Citrobacter freundii complex (O:CITFRC) Lewis Count >100,000 ORGANISM: Proteus mirabilis (O:PROMIR) Lewis Count 20,000 Aerobic MIRTHA Charge (NMIC56) - [...] RESISTANT TO ALL B-LACTAM DRUGS. PERFORMED BY: [facility] [id number] [place] [address] PATHOLOGIST PAPERHANGER SUPERVISOR CHOLO YEAGER M.D. Normal [facility] Comment on above: Performed By: #### M G, BMP #### [facility] [address] Urine culture routineOrdered By: Shantel Steven on 07-17-2024 Bacteria identified Cx Nom (U) Proteus mirabilis Abnormal [facility] Erythrocyte distribution wid th Auto (RBC) [Ratio]on 07-15-2024 Erythrocyte distribution width (RBC) [Ratio] 13.3 % 11.0-15.0 [facility] Estimated glomerular filtrat ion rate (GFR) non- Americanon 07-15-2024 GFR/1.73 sq M.predicted among non-blacks MDRD (S/P/Bld) [Vol rate/Area] 47 mL/min/{1.73_m2} Low >=60 [facility] Globulin Calc (S) [Mass/Vol] on 07-15-2024 Globulin (S) [Mass/Vol] 4.2 g/dL [facility] Hematocrit Auto (Bld) [Volum e fraction]on 07-15-2024 Hematocrit (Bld) [Volume fraction] 34.9 % Low 36.0-48.0 [facility] Hemoglobin [Mass/volume] in Bloodon 07-15-2024 Hemoglobin (Bld) [Mass/Vol] 11.6 g/dL Low 12.0-16.0 [facility] Laboratory - Chemistry and C hemistry - challengeon 07-15-2024 Bilirubin Ql (U) Negative NEGATIVE [facility] Glucose (U) [Mass/Vol] [facility] Ketones Ql ([facility]) Negative NEGATIVE [facility] pH (U) 6.5 [pH] 5.0-9.0 [facility] Specific gravity (U) [Rel density] 1.020 1.005-1.025 [facility] Urobilinogen Qn (U) 0.2 {Meka'U}/dL 0.2-1.0 [facility] Albumin [Mass/Vol] 2.6 g/dL Low 3.4-5.0 [facility] ALP [Catalytic activity/Vol] 87 U/L 46-116 [facility] ALT [Catalytic activity/Vol] 18 U/L 14-59 [facility] AST [Catalytic activity/Vol] 14 U/L Low 15-37 [facility] Bilirubin [Mass/Vol] 0.6 mg/dL 0.2-1.0 [facility] Calcium [Mass/Vol] 8.6 mg/dL 8.5-10.1 [facility] Chloride [Moles/Vol] 101 mmol/L 98-107 [facility] CO2 [Moles/Vol] 31.4 mmol/L 21.0-32.0 [facility] Creatinine [Mass/Vol] 1.12 mg/dL High 0.55-1.02 [facility] GFR/1.73 sq M.predicted MDRD (S/P/Bld) [Vol rate/Area] 57 mL/min/{1.73_m2} Low >=60 [facility] Glucose [Mass/Vol] 153 mg/dL High 74-106 [facility] Natriuretic peptide B (Bld) [Mass/Vol] 3410.0 pg/mL High <=1800.0 [facility] Comment on above: RESULTS CALLED TO Bogdan Robin RN at 0840 Potassium [Moles/Vol] 3.6 mmol/L 3.5-5.1 [facility] Protein [Mass/Vol] 6.8 g/dL 6.4-8.2 [facility] Sodium [Moles/Vol] 141 mmol/L 136-145 [facility] Urea nitrogen [Mass/Vol] 43.0 mg/dL High 7.0-18.0 [facility] Urea nitrogen/Creatinine [Mass ratio] 38.4 mg/mg [facility] Laboratory - Specimen inform ationon 07-15-2024 Appearance (U) CLEAR CLEAR [facility] Color (U) LT. YELLOW YELLOW [facility] Laboratory - Urinalysison Leukocyte esterase Test strip Ql (U) Negative NEGATIVE [facility] Mucus Ql (Urine sed) NONE SEEN NONE SEEN [facility] Nitrite Ql (U) Negative NEGATIVE [facility] Protein Ql (U) 100 mg/dL Abnormal NEG/TRACE [facility] Leukocytes [#/volume] correc gali for nucleated erythrocytes in Blood by Automated counon 07-15-2024 WBC corrected for nucl RBC Auto (Bld) [#/Vol] 8.5 10 3/uL 4.0-11.0 [facility] MCH Auto (RBC) [Entitic mass ]on 07-15-2024 MCH (RBC) [Entitic mass] 29.9 pg 26.7-34.0 [facility] MCHC Auto (RBC) [Mass/Vol]on 07-15-2024 MCHC (RBC) [Mass/Vol] 33.2 g/dL 29.9-35.2 [facility] MCV Auto (RBC) [Entitic vol] on 07-15-2024 MCV (RBC) [Entitic vol] 89.9 fL 81.0-99.0 [facility] No Panel Informationon 07-15 Urine Bacteria NONE SEEN #/HPF NONE SEEN [facility] Urine Occult Blood TRACE-I NEGATIVE [facility] Urine RBC 0-2 #/HPF 0-2 [facility] Urine Squamous Epithelial Cells FEW #/LPF Abnormal NONE/RARE [facility] Urine WBC NONE SEEN #/HPF NONE SEEN [facility] NONE SEEN #/HPF NONE SEEN [facility] Negative NEGATIVE [facility] TRACE-I NEGATIVE [facility] CLEAR CLEAR [facility] LT. YELLOW YELLOW [facility] NONE SEEN NONE SEEN [facility] 6.5 5.0-9.0 [facility] 100 mg/dL Abnormal NEG/TRACE [facility] 0-2 #/HPF 0-2 [facility] 1.020 1.005-1.025 [facility] FEW #/LPF Abnormal NONE/RARE [facility] 0.2 EU/dL 0.2-1.0 [facility] Troponin I High Sensitivity 21.3 pg/mL 4.0-51.3 [facility] Comment on above: CUT-OFF POINTS [...] AND CLINICAL INFORMATION. 3410.0 pg/mL High <=1800.0 [facility] 21.3 pg/mL 4.0-51.3 [facility] 2.6 g/dL Low 3.4-5.0 [facility] 87 U/L 46-116 [facility] 18 U/L 14-59 [facility] 14 U/L Low 15-37 [facility] 38.4 [facility] 43.0 mg/dL High 7.0-18.0 [facility] 8.6 mg/dL 8.5-10.1 [facility] 101 mmol/L 98-107 [facility] 31.4 mmol/L 21.0-32.0 [facility] 1.12 mg/dL High 0.55-1.02 [facility] 57 Low >=60 [facility] 153 mg/dL High 74-106 [facility] 3.6 mmol/L 3.5-5.1 [facility] 141 mmol/L 136-145 [facility] 0.6 mg/dL 0.2-1.0 [facility] 6.8 g/dL 6.4-8.2 [facility] Platelet mean volume Auto (B ld) [Entitic vol]on 07-15-2024 Platelet mean volume (Bld) [Entitic vol] 11.0 fL 9.5-13.5 [facility] Platelets Auto (Bld) [#/Vol] on 07-15-2024 Platelets (Bld) [#/Vol] 177 10 3/uL 150-450 [facility] RBC Auto (Bld) [#/Vol]on RBC (Bld) [#/Vol] 3.88 10 6/uL Low 4.20-5.40 [facility] Serum or plasma albumin/glob ulin mass ratioon 07-15-2024 Albumin/Globulin [Mass ratio] 0.6 {ratio} [facility] Serum or plasma anion gap de terminationon 07-15-2024 Anion gap [Moles/Vol] 12.2 mmol/L [facility] Basophils Auto (Bld) [#/Vol] on 07-14-2024 Basophils (Bld) [#/Vol] 0.1 10 3/uL 0.0-0.1 [facility] Basophils/100 WBC Auto (Bld) on 07-14-2024 Basophils/100 WBC (Bld) 0.9 % 0.2-2.0 [facility] Eosinophils/100 WBC Auto (Bl d)on 07-14-2024 Eosinophils/100 WBC (Bld) 1.3 % 0.9-7.0 [facility] Erythrocyte distribution wid th Auto (RBC) [Ratio]on 07-14-2024 Erythrocyte distribution width (RBC) [Ratio] 13.5 % 11.0-15.0 [facility] Estimated glomerular filtrat ion rate (GFR) non- Americanon 07-14-2024 GFR/1.73 sq M.predicted among non-blacks MDRD (S/P/Bld) [Vol rate/Area] 30 mL/min/{1.73_m2} Low >=60 [facility] Hematocrit Auto (Bld) [Volum e fraction]on 07-14-2024 Hematocrit (Bld) [Volume fraction] 38.5 % 36.0-48.0 [facility] Hemoglobin [Mass/volume] in Bloodon 07-14-2024 Hemoglobin (Bld) [Mass/Vol] 12.8 g/dL 12.0-16.0 [facility] Laboratory - Chemistry and C hemistry - challengeon 07-14-2024 Calcium [Mass/Vol] 9.0 mg/dL 8.5-10.1 [facility] Chloride [Moles/Vol] 96 mmol/L Low 98-107 [facility] CO2 [Moles/Vol] 35.5 mmol/L High 21.0-32.0 [facility] Creatinine [Mass/Vol] 1.65 mg/dL High 0.55-1.02 [facility] GFR/1.73 sq M.predicted MDRD (S/P/Bld) [Vol rate/Area] 36 mL/min/{1.73_m2} Low >=60 [facility] Glucose [Mass/Vol] 458 mg/dL High 74-106 [facility] Potassium [Moles/Vol] 4.0 mmol/L 3.5-5.1 [facility] Sodium [Moles/Vol] 135 mmol/L Low 136-145 [facility] Urea nitrogen [Mass/Vol] 52.0 mg/dL High 7.0-18.0 [facility] Urea nitrogen/Creatinine [Mass ratio] 31.5 mg/mg [facility] Laboratory - Hematology and Cell countson 07-14-2024 Immature granulocytes/100 WBC (Bld) 0.1 % 0.0-0.5 [facility] Leukocytes [#/volume] correc gali for nucleated erythrocytes in Blood by Automated counon 07-14-2024 WBC corrected for nucl RBC Auto (Bld) [#/Vol] 8.2 10 3/uL 4.0-11.0 [facility] Lymphocytes Auto (Bld) [#/Vo l]on 07-14-2024 Lymphocytes (Bld) [#/Vol] 1.1 10 3/uL Low 1.2-3.8 [facility] Lymphocytes/100 WBC Auto (Bl d)on 07-14-2024 Lymphocytes/100 WBC (Bld) 13.7 % Low 20.5-60.0 [facility] MCH Auto (RBC) [Entitic mass ]on 07-14-2024 MCH (RBC) [Entitic mass] 30.0 pg 26.7-34.0 [facility] MCHC Auto (RBC) [Mass/Vol]on 07-14-2024 MCHC (RBC) [Mass/Vol] 33.2 g/dL 29.9-35.2 [facility] MCV Auto (RBC) [Entitic vol] on 07-14-2024 MCV (RBC) [Entitic vol] 90.2 fL 81.0-99.0 [facility] Monocytes Auto (Bld) [#/Vol] on 07-14-2024 Monocytes (Bld) [#/Vol] 0.5 10 3/uL 0.3-0.8 [facility] Monocytes/100 WBC Auto (Bld) on 07-14-2024 Monocytes/100 WBC (Bld) 6.6 % 1.7-12.0 [facility] Neutrophils Auto (Bld) [#/Vo l]on 07-14-2024 Neutrophils (Bld) [#/Vol] 6.3 10 3/uL 1.4-6.5 [facility] Neutrophils/100 WBC Auto (Bl d)on 07-14-2024 Neutrophils/100 WBC (Bld) 77.4 % High 43.0-75.0 [facility] No Panel Informationon 07-14 Eosinophils # (Auto) 0.1 10 3/uL 0.0-0.7 [facility] Immature Granulocyte # (Auto) 0.01 10 3/uL 0.00-0.03 [facility] Troponin I High Sensitivity 17.9 pg/mL 4.0-51.3 [facility] Comment on above: CUT-OFF POINTS [...] DIAGNOSTIC AND CLINICAL INFORMATION. 17.9 pg/mL 4.0-51.3 [facility] 31.5 [facility] 0.1 10 3/uL 0.0-0.7 [facility] 52.0 mg/dL High 7.0-18.0 [facility] 9.0 mg/dL 8.5-10.1 [facility] 96 mmol/L Low 98-107 [facility] 35.5 mmol/L High 21.0-32.0 [facility] 0.01 10 3/uL 0.00-0.03 [facility] 1.65 mg/dL High 0.55-1.02 [facility] 0.1 % 0.0-0.5 [facility] 36 Low >=60 [facility] 458 mg/dL High 74-106 [facility] 4.0 mmol/L 3.5-5.1 [facility] 135 mmol/L Low 136-145 [facility] Platelet mean volume Auto (B ld) [Entitic vol]on 07-14-2024 Platelet mean volume (Bld) [Entitic vol] 11.0 fL 9.5-13.5 [facility] Platelets Auto (Bld) [#/Vol] on 07-14-2024 Platelets (Bld) [#/Vol] 182 10 3/uL 150-450 [facility] RBC Auto (Bld) [#/Vol]on RBC (Bld) [#/Vol] 4.27 10 6/uL 4.20-5.40 [facility] Serum or plasma anion gap de terminationon 07-14-2024 Anion gap [Moles/Vol] 7.5 mmol/L [facility] 36on 07-01-2024 36 Regarding lab result [...] for patient to return my call. Normal [facility] Estimated glomerular filtrat ion rate (GFR) non- Americanon 06-24-2024 GFR/1.73 sq M.predicted among non-blacks MDRD (S/P/Bld) [Vol rate/Area] 38 mL/min/{1.73_m2} Low >=60 [facility] Laboratory - Chemistry and C hemistry - challengeon 06-24-2024 Calcium [Mass/Vol] 8.4 mg/dL Low 8.5-10.1 [facility] Chloride [Moles/Vol] 100 mmol/L 98-107 [facility] CO2 [Moles/Vol] 31.1 mmol/L 21.0-32.0 [facility] Creatinine [Mass/Vol] 1.34 mg/dL High 0.55-1.02 [facility] GFR/1.73 sq M.predicted MDRD (S/P/Bld) [Vol rate/Area] 46 mL/min/{1.73_m2} Low >=60 [facility] Glucose [Mass/Vol] 222 mg/dL High 74-106 [facility] Potassium [Moles/Vol] 3.6 mmol/L 3.5-5.1 [facility] Sodium [Moles/Vol] 138 mmol/L 136-145 [facility] Urea nitrogen [Mass/Vol] 32.0 mg/dL High 7.0-18.0 [facility] Urea nitrogen/Creatinine [Mass ratio] 23.9 mg/mg [facility] No Panel Informationon 06-24 23.9 [facility] 32.0 mg/dL High 7.0-18.0 [facility] 8.4 mg/dL Low 8.5-10.1 [facility] 100 mmol/L 98-107 [facility] 31.1 mmol/L 21.0-32.0 [facility] 1.34 mg/dL High 0.55-1.02 [facility] 46 Low >=60 [facility] 222 mg/dL High 74-106 [facility] 3.6 mmol/L 3.5-5.1 [facility] 138 mmol/L 136-145 [facility] Serum or plasma anion gap de terminationon 06-24-2024 Anion gap [Moles/Vol] 10.5 mmol/L [facility] Office Visiton 06-18-2024 Follow-up visit [id number] Joe Call 1945 F Date Provider Department Center 06/18/2024 [facility] Family History Problem Relation Age of Onset Coronary artery disease Other Diabetes Other Polycystic kidney disease Other Family Status - Relation Status Age at Other Level of Service:[address] [place] OFFICE/OUTPATIENT ESTABLISHED MOD MDM 30 MIN Normal [facility] Basophils Auto (Bld) [#/Vol] on 06-10-2024 Basophils (Bld) [#/Vol] 0.1 10 3/uL 0.0-0.1 [facility] Basophils/100 WBC Auto (Bld) on 06-10-2024 Basophils/100 WBC (Bld) 1.0 % 0.2-2.0 [facility] Eosinophils/100 WBC Auto (Bl d)on 06-10-2024 Eosinophils/100 WBC (Bld) 1.3 % 0.9-7.0 [facility] Erythrocyte distribution wid th Auto (RBC) [Ratio]on 06-10-2024 Erythrocyte distribution width (RBC) [Ratio] 14.6 % 11.0-15.0 [facility] Estimated glomerular filtrat ion rate (GFR) non- Americanon 06-10-2024 GFR/1.73 sq M.predicted among non-blacks MDRD (S/P/Bld) [Vol rate/Area] 54 mL/min/{1.73_m2} Low >=60 [facility] Globulin Calc (S) [Mass/Vol] on 06-10-2024 Globulin (S) [Mass/Vol] 4.5 g/dL [facility] Hematocrit Auto (Bld) [Volum e fraction]on 06-10-2024 Hematocrit (Bld) [Volume fraction] 36.8 % 36.0-48.0 [facility] Hemoglobin [Mass/volume] in Bloodon 06-10-2024 Hemoglobin (Bld) [Mass/Vol] 12.1 g/dL 12.0-16.0 [facility] Laboratory - Chemistry and C hemistry - challengeon 06-10-2024 Albumin [Mass/Vol] 2.4 g/dL Low 3.4-5.0 [facility] ALP [Catalytic activity/Vol] 94 U/L 46-116 [facility] ALT [Catalytic activity/Vol] 13 U/L Low 14-59 [facility] AST [Catalytic activity/Vol] 13 U/L Low 15-37 [facility] Bilirubin [Mass/Vol] 0.9 mg/dL 0.2-1.0 [facility] Calcium [Mass/Vol] 8.9 mg/dL 8.5-10.1 [facility] Chloride [Moles/Vol] 101 mmol/L 98-107 [facility] CO2 [Moles/Vol] 29.4 mmol/L 21.0-32.0 [facility] Creatinine [Mass/Vol] 1.00 mg/dL 0.55-1.02 [facility] GFR/1.73 sq M.predicted MDRD (S/P/Bld) [Vol rate/Area] mL/min/{1.73_m2} >=60 [facility] Glucose [Mass/Vol] 167 mg/dL High 74-106 [facility] Potassium [Moles/Vol] 3.4 mmol/L Low 3.5-5.1 [facility] Protein [Mass/Vol] 6.9 g/dL 6.4-8.2 [facility] Sodium [Moles/Vol] 136 mmol/L 136-145 [facility] Urea nitrogen [Mass/Vol] 24.0 mg/dL High 7.0-18.0 [facility] Urea nitrogen/Creatinine [Mass ratio] 24.0 mg/mg [facility] Laboratory - Hematology and Cell countson 06-10-2024 Immature granulocytes/100 WBC (Bld) 0.3 % 0.0-0.5 [facility] Leukocytes [#/volume] correc gali for nucleated erythrocytes in Blood by Automated counon 06-10-2024 WBC corrected for nucl RBC Auto (Bld) [#/Vol] 7.9 10 3/uL 4.0-11.0 [facility] Lymphocytes Auto (Bld) [#/Vo l]on 06-10-2024 Lymphocytes (Bld) [#/Vol] 1.3 10 3/uL 1.2-3.8 [facility] Lymphocytes/100 WBC Auto (Bl d)on 06-10-2024 Lymphocytes/100 WBC (Bld) 16.8 % Low 20.5-60.0 [facility] MCH Auto (RBC) [Entitic mass ]on 06-10-2024 MCH (RBC) [Entitic mass] 29.8 pg 26.7-34.0 [facility] MCHC Auto (RBC) [Mass/Vol]on 06-10-2024 MCHC (RBC) [Mass/Vol] 32.9 g/dL 29.9-35.2 [facility] MCV Auto (RBC) [Entitic vol] on 06-10-2024 MCV (RBC) [Entitic vol] 90.6 fL 81.0-99.0 [facility] Monocytes Auto (Bld) [#/Vol] on 06-10-2024 Monocytes (Bld) [#/Vol] 0.8 10 3/uL 0.3-0.8 [facility] Monocytes/100 WBC Auto (Bld) on 06-10-2024 Monocytes/100 WBC (Bld) 9.8 % 1.7-12.0 [facility] Neutrophils Auto (Bld) [#/Vo l]on 06-10-2024 Neutrophils (Bld) [#/Vol] 5.6 10 3/uL 1.4-6.5 [facility] Neutrophils/100 WBC Auto (Bl d)on 06-10-2024 Neutrophils/100 WBC (Bld) 70.8 % 43.0-75.0 [facility] No Panel Informationon 06-10 Eosinophils # (Auto) 0.1 10 3/uL 0.0-0.7 [facility] Immature Granulocyte # (Auto) 0.02 10 3/uL 0.00-0.03 [facility] 2.4 g/dL Low 3.4-5.0 [facility] 0.1 10 3/uL 0.0-0.7 [facility] 94 U/L 46-116 [facility] 13 U/L Low 15-37 [facility] 24.0 [facility] 0.02 10 3/uL 0.00-0.03 [facility] 24.0 mg/dL High 7.0-18.0 [facility] 0.3 % 0.0-0.5 [facility] 8.9 mg/dL 8.5-10.1 [facility] 101 mmol/L 98-107 [facility] 29.4 mmol/L 21.0-32.0 [facility] 1.00 mg/dL 0.55-1.02 [facility] >60 >=60 [facility] 167 mg/dL High 74-106 [facility] 3.4 mmol/L Low 3.5-5.1 [facility] 136 mmol/L 136-145 [facility] 0.9 mg/dL 0.2-1.0 [facility] 6.9 g/dL 6.4-8.2 [facility] Platelet mean volume Auto (B ld) [Entitic vol]on 06-10-2024 Platelet mean volume (Bld) [Entitic vol] 11.2 fL 9.5-13.5 [facility] Platelets Auto (Bld) [#/Vol] on 06-10-2024 Platelets (Bld) [#/Vol] 189 10 3/uL 150-450 [facility] RBC Auto (Bld) [#/Vol]on RBC (Bld) [#/Vol] 4.06 10 6/uL Low 4.20-5.40 [facility] Serum or plasma albumin/glob ulin mass ratioon 06-10-2024 Albumin/Globulin [Mass ratio] 0.5 {ratio} [facility] Serum or plasma anion gap de terminationon 06-10-2024 Anion gap [Moles/Vol] 9.0 mmol/L [facility] Basophils Auto (Bld) [#/Vol] on 06-09-2024 Basophils (Bld) [#/Vol] 0.1 10 3/uL 0.0-0.1 [facility] Basophils/100 WBC Auto (Bld) on 06-09-2024 Basophils/100 WBC (Bld) 1.0 % 0.2-2.0 [facility] Eosinophils/100 WBC Auto (Bl d)on 06-09-2024 Eosinophils/100 WBC (Bld) 1.5 % 0.9-7.0 [facility] Erythrocyte distribution wid th Auto (RBC) [Ratio]on 06-09-2024 Erythrocyte distribution width (RBC) [Ratio] 14.8 % 11.0-15.0 [facility] Estimated glomerular filtrat ion rate (GFR) non- Americanon 06-09-2024 GFR/1.73 sq M.predicted among non-blacks MDRD (S/P/Bld) [Vol rate/Area] mL/min/{1.73_m2} >=60 [facility] Fibrin D-dimer [Presence] in Platelet poor plasma by Latex agglutinationon 06-09-2024 Fibrin D-dimer LA Ql (PPP) 0.39 mg/L FEU <=0.59 [facility] Comment on above: Increases in [...] on 06-09-2024 Globulin (S) [Mass/Vol] 4.8 g/dL [facility] Hematocrit Auto (Bld) [Volum e fraction]on 06-09-2024 Hematocrit (Bld) [Volume fraction] 37.7 % 36.0-48.0 [facility] Hemoglobin [Mass/volume] in Bloodon 06-09-2024 Hemoglobin (Bld) [Mass/Vol] 12.5 g/dL 12.0-16.0 [facility] Laboratory - Chemistry and C hemistry - challengeon 06-09-2024 Albumin [Mass/Vol] 2.5 g/dL Low 3.4-5.0 [facility] ALP [Catalytic activity/Vol] 86 U/L 46-116 [facility] ALT [Catalytic activity/Vol] 18 U/L 14-59 [facility] AST [Catalytic activity/Vol] 34 U/L 15-37 [facility] Bilirubin [Mass/Vol] 0.8 mg/dL 0.2-1.0 [facility] Calcium [Mass/Vol] 8.6 mg/dL 8.5-10.1 [facility] Chloride [Moles/Vol] 103 mmol/L 98-107 [facility] CO2 [Moles/Vol] 27.1 mmol/L 21.0-32.0 [facility] Creatinine [Mass/Vol] 0.88 mg/dL 0.55-1.02 [facility] GFR/1.73 sq M.predicted MDRD (S/P/Bld) [Vol rate/Area] mL/min/{1.73_m2} >=60 [facility] Glucose [Mass/Vol] 142 mg/dL High 74-106 [facility] Lipase [Catalytic activity/Vol] 45.0 U/L 16.0-77.0 [facility] Natriuretic peptide B (Bld) [Mass/Vol] 3488.0 pg/mL High <=1800.0 [facility] Comment on above: RESULTS CALLED TO MAIDA MCGOWAN RN @BY Alla Kevin [id number] Potassium [Moles/Vol] 5.0 mmol/L 3.5-5.1 [facility] Protein [Mass/Vol] 7.3 g/dL 6.4-8.2 [facility] Sodium [Moles/Vol] 135 mmol/L Low 136-145 [facility] Urea nitrogen [Mass/Vol] 28.0 mg/dL High 7.0-18.0 [facility] Urea nitrogen/Creatinine [Mass ratio] 31.8 mg/mg [facility] Laboratory - Hematology and Cell countson 06-09-2024 Immature granulocytes/100 WBC (Bld) 0.3 % 0.0-0.5 [facility] Laboratory - Microbiology an d Antimicrobial susceptibilityon 06-09-2024 SARS-CoV-2 (COVID-19) RNA FERN+probe Ql (Unsp spec) Negative NEGATIVE [facility] Comment on above: This test [...] Auto (Bld) [#/Vol] 8.9 10 3/uL 4.0-11.0 [facility] Lymphocytes Auto (Bld) [#/Vo l]on 06-09-2024 Lymphocytes (Bld) [#/Vol] 1.3 10 3/uL 1.2-3.8 [facility] Lymphocytes/100 WBC Auto (Bl d)on 06-09-2024 Lymphocytes/100 WBC (Bld) 15.1 % Low 20.5-60.0 [facility] MCH Auto (RBC) [Entitic mass ]on 06-09-2024 MCH (RBC) [Entitic mass] 30.3 pg 26.7-34.0 [facility] MCHC Auto (RBC) [Mass/Vol]on 06-09-2024 MCHC (RBC) [Mass/Vol] 33.2 g/dL 29.9-35.2 [facility] MCV Auto (RBC) [Entitic vol] on 06-09-2024 MCV (RBC) [Entitic vol] 91.5 fL 81.0-99.0 [facility] Monocytes Auto (Bld) [#/Vol] on 06-09-2024 Monocytes (Bld) [#/Vol] 0.7 10 3/uL 0.3-0.8 [facility] Monocytes/100 WBC Auto (Bld) on 06-09-2024 Monocytes/100 WBC (Bld) 7.9 % 1.7-12.0 [facility] Neutrophils Auto (Bld) [#/Vo l]on 06-09-2024 Neutrophils (Bld) [#/Vol] 6.6 10 3/uL High 1.4-6.5 [facility] Neutrophils/100 WBC Auto (Bl d)on 06-09-2024 Neutrophils/100 WBC (Bld) 74.2 % 43.0-75.0 [facility] No Panel Informationon 06-09 Negative NEGATIVE [facility] Eosinophils # (Auto) 0.1 10 3/uL 0.0-0.7 [facility] Immature Granulocyte # (Auto) 0.03 10 3/uL 0.00-0.03 [facility] Troponin I High Sensitivity 17.0 pg/mL 4.0-51.3 [facility] Comment on above: CUT-OFF POINTS [...] AND CLINICAL INFORMATION. 3488.0 pg/mL High <=1800.0 [facility] 45.0 U/L 16.0-77.0 [facility] 17.0 pg/mL 4.0-51.3 [facility] 2.5 g/dL Low 3.4-5.0 [facility] 0.1 10 3/uL 0.0-0.7 [facility] 86 U/L 46-116 [facility] 18 U/L 14-59 [facility] 34 U/L 15-37 [facility] 31.8 [facility] 0.03 10 3/uL 0.00-0.03 [facility] 28.0 mg/dL High 7.0-18.0 [facility] 0.3 % 0.0-0.5 [facility] 8.6 mg/dL 8.5-10.1 [facility] 103 mmol/L 98-107 [facility] 27.1 mmol/L 21.0-32.0 [facility] 0.88 mg/dL 0.55-1.02 [facility] >60 >=60 [facility] 142 mg/dL High 74-106 [facility] 5.0 mmol/L 3.5-5.1 [facility] 135 mmol/L Low 136-145 [facility] 0.8 mg/dL 0.2-1.0 [facility] 7.3 g/dL 6.4-8.2 [facility] Platelet mean volume Auto (B ld) [Entitic vol]on 06-09-2024 Platelet mean volume (Bld) [Entitic vol] 12.4 fL 9.5-13.5 [facility] Platelets Auto (Bld) [#/Vol] on 06-09-2024 Platelets (Bld) [#/Vol] 205 10 3/uL 150-450 [facility] RBC Auto (Bld) [#/Vol]on RBC (Bld) [#/Vol] 4.12 10 6/uL Low 4.20-5.40 [facility] Serum or plasma albumin/glob ulin mass ratioon 06-09-2024 Albumin/Globulin [Mass ratio] 0.5 {ratio} [facility] Serum or plasma anion gap de terminationon 06-09-2024 Anion gap [Moles/Vol] 9.9 mmol/L [facility] Basophils Auto (Bld) [#/Vol] on 06-01-2024 Basophils (Bld) [#/Vol] 0.1 10 3/uL 0.0-0.1 [facility] Basophils/100 WBC Auto (Bld) on 06-01-2024 Basophils/100 WBC (Bld) 0.9 % 0.2-2.0 [facility] Eosinophils/100 WBC Auto (Bl d)on 06-01-2024 Eosinophils/100 WBC (Bld) 1.2 % 0.9-7.0 [facility] Erythrocyte distribution wid th Auto (RBC) [Ratio]on 06-01-2024 Erythrocyte distribution width (RBC) [Ratio] 14.1 % 11.0-15.0 [facility] Estimated glomerular filtrat ion rate (GFR) non- Americanon 06-01-2024 GFR/1.73 sq M.predicted among non-blacks MDRD (S/P/Bld) [Vol rate/Area] 47 mL/min/{1.73_m2} Low >=60 [facility] Globulin Calc (S) [Mass/Vol] on 06-01-2024 Globulin (S) [Mass/Vol] 4.4 g/dL [facility] Hematocrit Auto (Bld) [Volum e fraction]on 06-01-2024 Hematocrit (Bld) [Volume fraction] 37.6 % 36.0-48.0 [facility] Hemoglobin [Mass/volume] in Bloodon 06-01-2024 Hemoglobin (Bld) [Mass/Vol] 12.5 g/dL 12.0-16.0 [facility] Laboratory - Chemistry and C hemistry - challengeon 06-01-2024 Albumin [Mass/Vol] 2.7 g/dL Low 3.4-5.0 [facility] ALP [Catalytic activity/Vol] 87 U/L 46-116 [facility] ALT [Catalytic activity/Vol] 18 U/L 14-59 [facility] AST [Catalytic activity/Vol] 16 U/L 15-37 [facility] Bilirubin [Mass/Vol] 0.5 mg/dL 0.2-1.0 [facility] Calcium [Mass/Vol] 8.7 mg/dL 8.5-10.1 [facility] Chloride [Moles/Vol] 101 mmol/L 98-107 [facility] CO2 [Moles/Vol] 28.9 mmol/L 21.0-32.0 [facility] Creatinine [Mass/Vol] 1.12 mg/dL High 0.55-1.02 [facility] GFR/1.73 sq M.predicted MDRD (S/P/Bld) [Vol rate/Area] 57 mL/min/{1.73_m2} Low >=60 [facility] Glucose [Mass/Vol] 232 mg/dL High 74-106 [facility] Potassium [Moles/Vol] 4.1 mmol/L 3.5-5.1 [facility] Protein [Mass/Vol] 7.1 g/dL 6.4-8.2 [facility] Sodium [Moles/Vol] 137 mmol/L 136-145 [facility] Urea nitrogen [Mass/Vol] 23.0 mg/dL High 7.0-18.0 [facility] Urea nitrogen/Creatinine [Mass ratio] 20.5 mg/mg [facility] Laboratory - Hematology and Cell countson 06-01-2024 Immature granulocytes/100 WBC (Bld) 0.2 % 0.0-0.5 [facility] Leukocytes [#/volume] correc gali for nucleated erythrocytes in Blood by Automated counon 06-01-2024 WBC corrected for nucl RBC Auto (Bld) [#/Vol] 9.0 10 3/uL 4.0-11.0 [facility] Lymphocytes Auto (Bld) [#/Vo l]on 06-01-2024 Lymphocytes (Bld) [#/Vol] 1.4 10 3/uL 1.2-3.8 [facility] Lymphocytes/100 WBC Auto (Bl d)on 06-01-2024 Lymphocytes/100 WBC (Bld) 15.9 % Low 20.5-60.0 [facility] MCH Auto (RBC) [Entitic mass ]on 06-01-2024 MCH (RBC) [Entitic mass] 29.5 pg 26.7-34.0 [facility] MCHC Auto (RBC) [Mass/Vol]on 06-01-2024 MCHC (RBC) [Mass/Vol] 33.2 g/dL 29.9-35.2 [facility] MCV Auto (RBC) [Entitic vol] on 06-01-2024 MCV (RBC) [Entitic vol] 88.7 fL 81.0-99.0 [facility] Monocytes Auto (Bld) [#/Vol] on 06-01-2024 Monocytes (Bld) [#/Vol] 0.8 10 3/uL 0.3-0.8 [facility] Monocytes/100 WBC Auto (Bld) on 06-01-2024 Monocytes/100 WBC (Bld) 8.5 % 1.7-12.0 [facility] Neutrophils Auto (Bld) [#/Vo l]on 06-01-2024 Neutrophils (Bld) [#/Vol] 6.6 10 3/uL High 1.4-6.5 [facility] Neutrophils/100 WBC Auto (Bl d)on 06-01-2024 Neutrophils/100 WBC (Bld) 73.3 % 43.0-75.0 [facility] No Panel Informationon 06-01 Eosinophils # (Auto) 0.1 10 3/uL 0.0-0.7 [facility] Immature Granulocyte # (Auto) 0.02 10 3/uL 0.00-0.03 [facility] 2.7 g/dL Low 3.4-5.0 [facility] 0.1 10 3/uL 0.0-0.7 [facility] 87 U/L 46-116 [facility] 18 U/L 14-59 [facility] 16 U/L 15-37 [facility] 20.5 [facility] 0.02 10 3/uL 0.00-0.03 [facility] 23.0 mg/dL High 7.0-18.0 [facility] 0.2 % 0.0-0.5 [facility] 8.7 mg/dL 8.5-10.1 [facility] 101 mmol/L 98-107 [facility] 28.9 mmol/L 21.0-32.0 [facility] 1.12 mg/dL High 0.55-1.02 [facility] 57 Low >=60 [facility] 232 mg/dL High 74-106 [facility] 4.1 mmol/L 3.5-5.1 [facility] 137 mmol/L 136-145 [facility] 0.5 mg/dL 0.2-1.0 [facility] 7.1 g/dL 6.4-8.2 [facility] Platelet mean volume Auto (B ld) [Entitic vol]on 06-01-2024 Platelet mean volume (Bld) [Entitic vol] 11.1 fL 9.5-13.5 [facility] Platelets Auto (Bld) [#/Vol] on 06-01-2024 Platelets (Bld) [#/Vol] 162 10 3/uL 150-450 [facility] RBC Auto (Bld) [#/Vol]on RBC (Bld) [#/Vol] 4.24 10 6/uL 4.20-5.40 [facility] Serum or plasma albumin/glob ulin mass ratioon 06-01-2024 Albumin/Globulin [Mass ratio] 0.6 {ratio} [facility] Serum or plasma anion gap de terminationon 06-01-2024 Anion gap [Moles/Vol] 11.2 [facility] Basophils Auto (Bld) [#/Vol] on 05-26-2024 Basophils (Bld) [#/Vol] 0.1 10 3/uL 0.0-0.1 [facility] Basophils/100 WBC Auto (Bld) on 05-26-2024 Basophils/100 WBC (Bld) 1.1 % 0.2-2.0 [facility] Eosinophils/100 WBC Auto (Bl d)on 05-26-2024 Eosinophils/100 WBC (Bld) 2.1 % 0.9-7.0 [facility] Erythrocyte distribution wid th Auto (RBC) [Ratio]on 05-26-2024 Erythrocyte distribution width (RBC) [Ratio] 14.0 % 11.0-15.0 [facility] Estimated glomerular filtrat ion rate (GFR) non- Americanon 05-26-2024 GFR/1.73 sq M.predicted among non-blacks MDRD (S/P/Bld) [Vol rate/Area] 40 mL/min/{1.73_m2} Low >=60 [facility] Globulin Calc (S) [Mass/Vol] on 05-26-2024 Globulin (S) [Mass/Vol] 4.4 g/dL [facility] Hematocrit Auto (Bld) [Volum e fraction]on 05-26-2024 Hematocrit (Bld) [Volume fraction] 35.9 % Low 36.0-48.0 [facility] Hemoglobin [Mass/volume] in Bloodon 05-26-2024 Hemoglobin (Bld) [Mass/Vol] 12.0 g/dL 12.0-16.0 [facility] Laboratory - Chemistry and C hemistry - challengeon 05-26-2024 Albumin [Mass/Vol] 2.7 g/dL Low 3.4-5.0 [facility] ALP [Catalytic activity/Vol] 88 U/L 46-116 [facility] ALT [Catalytic activity/Vol] 20 U/L 14-59 [facility] AST [Catalytic activity/Vol] 12 U/L Low 15-37 [facility] Bilirubin [Mass/Vol] 0.5 mg/dL 0.2-1.0 [facility] Calcium [Mass/Vol] 8.9 mg/dL 8.5-10.1 [facility] Chloride [Moles/Vol] 104 mmol/L 98-107 [facility] CO2 [Moles/Vol] 26.7 mmol/L 21.0-32.0 [facility] Creatinine [Mass/Vol] 1.29 mg/dL High 0.55-1.02 [facility] Free T4 [Mass/Vol] 1.19 ng/dL 0.76-1.46 [facility] GFR/1.73 sq M.predicted MDRD (S/P/Bld) [Vol rate/Area] 49 mL/min/{1.73_m2} Low >=60 [facility] Glucose [Mass/Vol] 233 mg/dL High 74-106 [facility] Natriuretic peptide B (Bld) [Mass/Vol] 2687.0 pg/mL High <=1800.0 [facility] Comment on above: RESULTS CALLED TO DR Miranda ALVAREZ IN ER BY Mira Edwards [id number] Potassium [Moles/Vol] 4.0 mmol/L 3.5-5.1 [facility] Protein [Mass/Vol] 7.1 g/dL 6.4-8.2 [facility] Sodium [Moles/Vol] 140 mmol/L 136-145 [facility] TSH Qn 4.487 m[IU]/L High 0.358-3.740 [facility] Urea nitrogen [Mass/Vol] 33.0 mg/dL High 7.0-18.0 [facility] Urea nitrogen/Creatinine [Mass ratio] 25.6 mg/mg [facility] Laboratory - Hematology and Cell countson 05-26-2024 Immature granulocytes/100 WBC (Bld) 0.1 % 0.0-0.5 [facility] Laboratory - Microbiology an d Antimicrobial susceptibilityon 05-26-2024 S. pyogenes Ag Ql (Unsp spec) Negative [facility] SARS-CoV-2 (COVID-19) RNA FERN+probe Ql (Unsp spec) Not detected NOT DETECTE [facility] Comment on above: THIS TEST IS NOT PEREZ ROVDED BY THE FDA. It has beenauthorized for use under an Emergency Use Authorization. SARS-CoV-2 (COVID-19) RNA FERN+probe Ql (Unsp spec) See comment NOT DETECTE [facility] Comment on above: COVID AG PERFORMED-- - 06/06/24 1120 ---SARS-CoV-2 FERN previously reported as: NOT DETECTEDTHIS TEST IS NOT APPROVDED BY THE FDA. It has beenauthorized for use under an Emergency Use Authorization. SARS-CoV-2 (COVID-19) RNA FERN+probe Ql (Unsp spec) Negative NEGATIVE [facility] Comment on above: This test [...] Auto (Bld) [#/Vol] 7.3 10 3/uL 4.0-11.0 [facility] Lymphocytes Auto (Bld) [#/Vo l]on 05-26-2024 Lymphocytes (Bld) [#/Vol] 1.3 10 3/uL 1.2-3.8 [facility] Lymphocytes/100 WBC Auto (Bl d)on 05-26-2024 Lymphocytes/100 WBC (Bld) 18.4 % Low 20.5-60.0 [facility] MCH Auto (RBC) [Entitic mass ]on 05-26-2024 MCH (RBC) [Entitic mass] 30.4 pg 26.7-34.0 [facility] MCHC Auto (RBC) [Mass/Vol]on 05-26-2024 MCHC (RBC) [Mass/Vol] 33.4 g/dL 29.9-35.2 [facility] MCV Auto (RBC) [Entitic vol] on 05-26-2024 MCV (RBC) [Entitic vol] 90.9 fL 81.0-99.0 [facility] Monocytes Auto (Bld) [#/Vol] on 05-26-2024 Monocytes (Bld) [#/Vol] 0.7 10 3/uL 0.3-0.8 [facility] Monocytes/100 WBC Auto (Bld) on 05-26-2024 Monocytes/100 WBC (Bld) 9.5 % 1.7-12.0 [facility] Neutrophils Auto (Bld) [#/Vo l]on 05-26-2024 Neutrophils (Bld) [#/Vol] 5.0 10 3/uL 1.4-6.5 [facility] Neutrophils/100 WBC Auto (Bl d)on 05-26-2024 Neutrophils/100 WBC (Bld) 68.8 % 43.0-75.0 [facility] No Panel Informationon 05-26 See comment NOT DETECTE [facility] Negative [facility] Eosinophils # (Auto) 0.2 10 3/uL 0.0-0.7 [facility] Immature Granulocyte # (Auto) 0.01 10 3/uL 0.00-0.03 [facility] Monoscreen Negative NEGATIVE [facility] Troponin I High Sensitivity 14.9 pg/mL 4.0-51.3 [facility] Comment on above: CUT-OFF POINTS [...] DIAGNOSTIC AND CLINICAL INFORMATION. 1.19 ng/dL 0.76-1.46 [facility] 2687.0 pg/mL High <=1800.0 [facility] 14.9 pg/mL 4.0-51.3 [facility] 4.487 u[iU]/mL High 0.358-3.740 [facility] Negative NEGATIVE [facility] 2.7 g/dL Low 3.4-5.0 [facility] 0.2 10 3/uL 0.0-0.7 [facility] 88 U/L 46-116 [facility] 20 U/L 14-59 [facility] 12 U/L Low 15-37 [facility] 25.6 [facility] 0.01 10 3/uL 0.00-0.03 [facility] 33.0 mg/dL High 7.0-18.0 [facility] 0.1 % 0.0-0.5 [facility] 8.9 mg/dL 8.5-10.1 [facility] 104 mmol/L 98-107 [facility] 26.7 mmol/L 21.0-32.0 [facility] 1.29 mg/dL High 0.55-1.02 [facility] 49 Low >=60 [facility] 233 mg/dL High 74-106 [facility] 4.0 mmol/L 3.5-5.1 [facility] 140 mmol/L 136-145 [facility] 0.5 mg/dL 0.2-1.0 [facility] 7.1 g/dL 6.4-8.2 [facility] Platelet mean volume Auto (B ld) [Entitic vol]on 05-26-2024 Platelet mean volume (Bld) [Entitic vol] 10.6 fL 9.5-13.5 [facility] Platelets Auto (Bld) [#/Vol] on 05-26-2024 Platelets (Bld) [#/Vol] 215 10 3/uL 150-450 [facility] RBC Auto (Bld) [#/Vol]on RBC (Bld) [#/Vol] 3.95 10 6/uL Low 4.20-5.40 [facility] Serum or plasma albumin/glob ulin mass ratioon 05-26-2024 Albumin/Globulin [Mass ratio] 0.6 {ratio} [facility] Serum or plasma anion gap de terminationon 05-26-2024 Anion gap [Moles/Vol] 13.3 mmol/L [facility] ECG 12 lead ECGon 05-22-2024 ECG 12 lead ECG [facility] [place] [address] Electrocardiograph Report Signed Patient: Joe Call MR#: [id number] 0 : 1945 Acct:[id number] Age/Sex: 78 / F ADM Date: 05/22/24 Loc: ER Room: Type: [facility] ER Attending Dr: Ordering Provider: [...] Sinus bradycardia Confirmed by Daniele Jane DO ([id number]) on 05/22/2024 4:08:55 PM Referred By: Electronically Signed By: Daniele Jane DO Transcribed By: MUS Signed By Daniele Jane DO [id number] Normal [facility] 37on 05-20-2024 37 Have blood [...] pillows than normal or in recliner. Normal [facility] Estimated glomerular filtrat ion rate (GFR) non- Americanon 05-20-2024 GFR/1.73 sq M.predicted among non-blacks MDRD (S/P/Bld) [Vol rate/Area] 39 mL/min/{1.73_m2} Low >=60 [facility] Laboratory - Chemistry and C hemistry - challengeon 05-20-2024 Calcium [Mass/Vol] 8.8 mg/dL 8.5-10.1 [facility] Chloride [Moles/Vol] 103 mmol/L 98-107 [facility] CO2 [Moles/Vol] 24.3 mmol/L 21.0-32.0 [facility] Creatinine [Mass/Vol] 1.32 mg/dL High 0.55-1.02 [facility] GFR/1.73 sq M.predicted MDRD (S/P/Bld) [Vol rate/Area] 47 mL/min/{1.73_m2} Low >=60 [facility] Glucose [Mass/Vol] 243 mg/dL High 74-106 [facility] Potassium [Moles/Vol] 5.0 mmol/L 3.5-5.1 [facility] Sodium [Moles/Vol] 138 mmol/L 136-145 [facility] Urea nitrogen [Mass/Vol] 35.0 mg/dL High 7.0-18.0 [facility] Urea nitrogen/Creatinine [Mass ratio] 26.5 mg/mg [facility] No Panel Informationon 05-20 26.5 [facility] 35.0 mg/dL High 7.0-18.0 [facility] 8.8 mg/dL 8.5-10.1 [facility] 103 mmol/L 98-107 [facility] 24.3 mmol/L 21.0-32.0 [facility] 1.32 mg/dL High 0.55-1.02 [facility] 47 Low >=60 [facility] 243 mg/dL High 74-106 [facility] 5.0 mmol/L 3.5-5.1 [facility] 138 mmol/L 136-145 [facility] Office Visiton 05-20-2024 Follow-up visit [id number] BassemJoe G 1945 F Date Provider Department Center 05/20/2024 MICHELA CHAMBERLAIN [facility] Family History Problem Relation Age of Onset Coronary artery disease Other Diabetes Other Polycystic kidney disease Other Family Status - Relation Status Age at Other Level of Service:75438 MI OFFICE/OUTPATIENT ESTABLISHED MOD MDM 30 MIN Normal [facility] Serum or plasma anion gap de terminationon 05-20-2024 Anion gap [Moles/Vol] 15.7 [facility] Basophils Auto (Bld) [#/Vol] on 05-06-2024 Basophils (Bld) [#/Vol] 0.1 10 3/uL 0.0-0.1 [facility] Basophils/100 WBC Auto (Bld) on 05-06-2024 Basophils/100 WBC (Bld) 0.9 % 0.2-2.0 [facility] Eosinophils/100 WBC Auto (Bl d)on 05-06-2024 Eosinophils/100 WBC (Bld) 2.7 % 0.9-7.0 [facility] Erythrocyte distribution wid th Auto (RBC) [Ratio]on 05-06-2024 Erythrocyte distribution width (RBC) [Ratio] 13.5 % 11.0-15.0 [facility] Estimated glomerular filtrat ion rate (GFR) non- Americanon 05-06-2024 GFR/1.73 sq M.predicted among non-blacks MDRD (S/P/Bld) [Vol rate/Area] 32 mL/min/{1.73_m2} Low >=60 [facility] Globulin Calc (S) [Mass/Vol] on 05-06-2024 Globulin (S) [Mass/Vol] 4.3 g/dL [facility] Hematocrit Auto (Bld) [Volum e fraction]on 05-06-2024 Hematocrit (Bld) [Volume fraction] 34.6 % Low 36.0-48.0 [facility] Hemoglobin [Mass/volume] in Bloodon 05-06-2024 Hemoglobin (Bld) [Mass/Vol] 11.1 g/dL Low 12.0-16.0 [facility] Laboratory - Chemistry and C hemistry - challengeon 05-06-2024 Albumin [Mass/Vol] 2.5 g/dL Low 3.4-5.0 [facility] ALP [Catalytic activity/Vol] 75 U/L 46-116 [facility] ALT [Catalytic activity/Vol] 16 U/L 14-59 [facility] AST [Catalytic activity/Vol] 11 U/L Low 15-37 [facility] Bilirubin [Mass/Vol] 0.4 mg/dL 0.2-1.0 [facility] Calcium [Mass/Vol] 8.4 mg/dL Low 8.5-10.1 [facility] Chloride [Moles/Vol] 107 mmol/L 98-107 [facility] CO2 [Moles/Vol] 25.7 mmol/L 21.0-32.0 [facility] Creatinine [Mass/Vol] 1.58 mg/dL High 0.55-1.02 [facility] GFR/1.73 sq M.predicted MDRD (S/P/Bld) [Vol rate/Area] 38 mL/min/{1.73_m2} Low >=60 [facility] Glucose [Mass/Vol] 146 mg/dL High 74-106 [facility] Magnesium [Mass/Vol] 1.6 mg/dL Low 1.8-2.4 [facility] Natriuretic peptide B (Bld) [Mass/Vol] 2762.0 pg/mL High <=1800.0 [facility] Comment on above: RESULTS CALLED TO CLARITZA SELLERS RN @BY Alla Venegas at 0557 Potassium [Moles/Vol] 4.1 mmol/L 3.5-5.1 [facility] Protein [Mass/Vol] 6.8 g/dL 6.4-8.2 [facility] Sodium [Moles/Vol] 141 mmol/L 136-145 [facility] Urea nitrogen [Mass/Vol] 49.0 mg/dL High 7.0-18.0 [facility] Urea nitrogen/Creatinine [Mass ratio] 31.0 mg/mg [facility] Laboratory - Hematology and Cell countson 05-06-2024 Immature granulocytes/100 WBC (Bld) 0.1 % 0.0-0.5 [facility] Leukocytes [#/volume] correc gali for nucleated erythrocytes in Blood by Automated counon 05-06-2024 WBC corrected for nucl RBC Auto (Bld) [#/Vol] 6.7 10 3/uL 4.0-11.0 [facility] Lymphocytes Auto (Bld) [#/Vo l]on 05-06-2024 Lymphocytes (Bld) [#/Vol] 1.5 10 3/uL 1.2-3.8 [facility] Lymphocytes/100 WBC Auto (Bl d)on 05-06-2024 Lymphocytes/100 WBC (Bld) 21.8 % 20.5-60.0 [facility] MCH Auto (RBC) [Entitic mass ]on 05-06-2024 MCH (RBC) [Entitic mass] 29.0 pg 26.7-34.0 [facility] MCHC Auto (RBC) [Mass/Vol]on 05-06-2024 MCHC (RBC) [Mass/Vol] 32.1 g/dL 29.9-35.2 [facility] MCV Auto (RBC) [Entitic vol] on 05-06-2024 MCV (RBC) [Entitic vol] 90.3 fL 81.0-99.0 [facility] Monocytes Auto (Bld) [#/Vol] on 05-06-2024 Monocytes (Bld) [#/Vol] 0.7 10 3/uL 0.3-0.8 [facility] Monocytes/100 WBC Auto (Bld) on 05-06-2024 Monocytes/100 WBC (Bld) 10.6 % 1.7-12.0 [facility] Neutrophils Auto (Bld) [#/Vo l]on 05-06-2024 Neutrophils (Bld) [#/Vol] 4.3 10 3/uL 1.4-6.5 [facility] Neutrophils/100 WBC Auto (Bl d)on 05-06-2024 Neutrophils/100 WBC (Bld) 63.9 % 43.0-75.0 [facility] No Panel Informationon 05-06 Eosinophils # (Auto) 0.2 10 3/uL 0.0-0.7 [facility] Immature Granulocyte # (Auto) 0.01 10 3/uL 0.00-0.03 [facility] Troponin I High Sensitivity 13.2 pg/mL 4.0-51.3 [facility] Comment on above: CUT-OFF POINTS [...] AND CLINICAL INFORMATION. 2762.0 pg/mL High <=1800.0 [facility] 13.2 pg/mL 4.0-51.3 [facility] 1.6 mg/dL Low 1.8-2.4 [facility] 2.5 g/dL Low 3.4-5.0 [facility] 0.2 10 3/uL 0.0-0.7 [facility] 75 U/L 46-116 [facility] 16 U/L 14-59 [facility] 11 U/L Low 15-37 [facility] 31.0 [facility] 0.01 10 3/uL 0.00-0.03 [facility] 49.0 mg/dL High 7.0-18.0 [facility] 0.1 % 0.0-0.5 [facility] 8.4 mg/dL Low 8.5-10.1 [facility] 107 mmol/L 98-107 [facility] 25.7 mmol/L 21.0-32.0 [facility] 1.58 mg/dL High 0.55-1.02 [facility] 38 Low >=60 [facility] 146 mg/dL High 74-106 [facility] 4.1 mmol/L 3.5-5.1 [facility] 141 mmol/L 136-145 [facility] 0.4 mg/dL 0.2-1.0 [facility] 6.8 g/dL 6.4-8.2 [facility] Platelet mean volume Auto (B ld) [Entitic vol]on 05-06-2024 Platelet mean volume (Bld) [Entitic vol] 11.3 fL 9.5-13.5 [facility] Platelets Auto (Bld) [#/Vol] on 05-06-2024 Platelets (Bld) [#/Vol] 146 10 3/uL Low 150-450 [facility] RBC Auto (Bld) [#/Vol]on RBC (Bld) [#/Vol] 3.83 10 6/uL Low 4.20-5.40 [facility] Serum or plasma albumin/glob ulin mass ratioon 05-06-2024 Albumin/Globulin [Mass ratio] 0.6 {ratio} [facility] Serum or plasma anion gap de terminationon 05-06-2024 Anion gap [Moles/Vol] 12.4 mmol/L [facility] Basophils Auto (Bld) [#/Vol] on 05-05-2024 Basophils (Bld) [#/Vol] 0.1 10 3/uL 0.0-0.1 [facility] Basophils/100 WBC Auto (Bld) on 05-05-2024 Basophils/100 WBC (Bld) 0.9 % 0.2-2.0 [facility] Eosinophils/100 WBC Auto (Bl d)on 05-05-2024 Eosinophils/100 WBC (Bld) 1.9 % 0.9-7.0 [facility] Erythrocyte distribution wid th Auto (RBC) [Ratio]on 05-05-2024 Erythrocyte distribution width (RBC) [Ratio] 13.4 % 11.0-15.0 [facility] Estimated glomerular filtrat ion rate (GFR) non- Americanon 05-05-2024 GFR/1.73 sq M.predicted among non-blacks MDRD (S/P/Bld) [Vol rate/Area] 29 mL/min/{1.73_m2} Low >=60 [facility] Globulin Calc (S) [Mass/Vol] on 05-05-2024 Globulin (S) [Mass/Vol] 4.4 g/dL [facility] Hematocrit Auto (Bld) [Volum e fraction]on 05-05-2024 Hematocrit (Bld) [Volume fraction] 33.8 % Low 36.0-48.0 [facility] Hemoglobin [Mass/volume] in Bloodon 05-05-2024 Hemoglobin (Bld) [Mass/Vol] 11.1 g/dL Low 12.0-16.0 [facility] Laboratory - Chemistry and C hemistry - challengeon 05-05-2024 Albumin [Mass/Vol] 2.6 g/dL Low 3.4-5.0 [facility] ALP [Catalytic activity/Vol] 74 U/L 46-116 [facility] ALT [Catalytic activity/Vol] 17 U/L 14-59 [facility] AST [Catalytic activity/Vol] 12 U/L Low 15-37 [facility] Bilirubin [Mass/Vol] 0.4 mg/dL 0.2-1.0 [facility] Calcium [Mass/Vol] 6.1 mg/dL Low 8.5-10.1 [facility] Chloride [Moles/Vol] 105 mmol/L 98-107 [facility] CO2 [Moles/Vol] 24.1 mmol/L 21.0-32.0 [facility] Creatinine [Mass/Vol] 1.71 mg/dL High 0.55-1.02 [facility] GFR/1.73 sq M.predicted MDRD (S/P/Bld) [Vol rate/Area] 35 mL/min/{1.73_m2} Low >=60 [facility] Glucose [Mass/Vol] 202 mg/dL High 74-106 [facility] Magnesium [Mass/Vol] 1.5 mg/dL Low 1.8-2.4 [facility] Natriuretic peptide B (Bld) [Mass/Vol] 2725.0 pg/mL High <=1800.0 [facility] Comment on above: RESULTS CALLED TO Frances Bryant (Mert)@BY Franchesca Huynh MLT at 0547 Potassium [Moles/Vol] 5.9 mmol/L High 3.5-5.1 [facility] Protein [Mass/Vol] 7.0 g/dL 6.4-8.2 [facility] Sodium [Moles/Vol] 139 mmol/L 136-145 [facility] Urea nitrogen [Mass/Vol] 69.0 mg/dL High 7.0-18.0 [facility] Urea nitrogen/Creatinine [Mass ratio] 40.4 mg/mg [facility] Laboratory - Hematology and Cell countson 05-05-2024 Immature granulocytes/100 WBC (Bld) 0.3 % 0.0-0.5 [facility] Leukocytes [#/volume] correc gali for nucleated erythrocytes in Blood by Automated counon 05-05-2024 WBC corrected for nucl RBC Auto (Bld) [#/Vol] 6.9 10 3/uL 4.0-11.0 [facility] Lymphocytes Auto (Bld) [#/Vo l]on 05-05-2024 Lymphocytes (Bld) [#/Vol] 1.2 10 3/uL 1.2-3.8 [facility] Lymphocytes/100 WBC Auto (Bl d)on 05-05-2024 Lymphocytes/100 WBC (Bld) 18.0 % Low 20.5-60.0 [facility] MCH Auto (RBC) [Entitic mass ]on 05-05-2024 MCH (RBC) [Entitic mass] 29.3 pg 26.7-34.0 [facility] MCHC Auto (RBC) [Mass/Vol]on 05-05-2024 MCHC (RBC) [Mass/Vol] 32.8 g/dL 29.9-35.2 [facility] MCV Auto (RBC) [Entitic vol] on 05-05-2024 MCV (RBC) [Entitic vol] 89.2 fL 81.0-99.0 [facility] Monocytes Auto (Bld) [#/Vol] on 05-05-2024 Monocytes (Bld) [#/Vol] 0.6 10 3/uL 0.3-0.8 [facility] Monocytes/100 WBC Auto (Bld) on 05-05-2024 Monocytes/100 WBC (Bld) 8.7 % 1.7-12.0 [facility] Neutrophils Auto (Bld) [#/Vo l]on 05-05-2024 Neutrophils (Bld) [#/Vol] 4.8 10 3/uL 1.4-6.5 [facility] Neutrophils/100 WBC Auto (Bl d)on 05-05-2024 Neutrophils/100 WBC (Bld) 70.2 % 43.0-75.0 [facility] No Panel Informationon 05-05 Eosinophils # (Auto) 0.1 10 3/uL 0.0-0.7 [facility] Immature Granulocyte # (Auto) 0.02 10 3/uL 0.00-0.03 [facility] Troponin I High Sensitivity 14.0 pg/mL 4.0-51.3 [facility] Comment on above: CUT-OFF POINTS [...] AND CLINICAL INFORMATION. 2725.0 pg/mL High <=1800.0 [facility] 14.0 pg/mL 4.0-51.3 [facility] 1.5 mg/dL Low 1.8-2.4 [facility] 2.6 g/dL Low 3.4-5.0 [facility] 0.1 10 3/uL 0.0-0.7 [facility] 74 U/L 46-116 [facility] 17 U/L 14-59 [facility] 12 U/L Low 15-37 [facility] 40.4 [facility] 0.02 10 3/uL 0.00-0.03 [facility] 69.0 mg/dL High 7.0-18.0 [facility] 0.3 % 0.0-0.5 [facility] 6.1 mg/dL Low 8.5-10.1 [facility] 105 mmol/L 98-107 [facility] 24.1 mmol/L 21.0-32.0 [facility] 1.71 mg/dL High 0.55-1.02 [facility] 35 Low >=60 [facility] 202 mg/dL High 74-106 [facility] 5.9 mmol/L High 3.5-5.1 [facility] 139 mmol/L 136-145 [facility] 0.4 mg/dL 0.2-1.0 [facility] 7.0 g/dL 6.4-8.2 [facility] Platelet mean volume Auto (B ld) [Entitic vol]on 05-05-2024 Platelet mean volume (Bld) [Entitic vol] 11.8 fL 9.5-13.5 [facility] Platelets Auto (Bld) [#/Vol] on 05-05-2024 Platelets (Bld) [#/Vol] 173 10 3/uL 150-450 [facility] RBC Auto (Bld) [#/Vol]on RBC (Bld) [#/Vol] 3.79 10 6/uL Low 4.20-5.40 [facility] Serum or plasma albumin/glob ulin mass ratioon 05-05-2024 Albumin/Globulin [Mass ratio] 0.6 {ratio} [facility] Serum or plasma anion gap de terminationon 05-05-2024 Anion gap [Moles/Vol] 15.8 [facility] Basophils Auto (Bld) [#/Vol] on 05-04-2024 Basophils (Bld) [#/Vol] 0.1 10 3/uL 0.0-0.1 [facility] Basophils/100 WBC Auto (Bld) on 05-04-2024 Basophils/100 WBC (Bld) 0.9 % 0.2-2.0 [facility] Eosinophils/100 WBC Auto (Bl d)on 05-04-2024 Eosinophils/100 WBC (Bld) 1.7 % 0.9-7.0 [facility] Erythrocyte distribution wid th Auto (RBC) [Ratio]on 05-04-2024 Erythrocyte distribution width (RBC) [Ratio] 13.6 % 11.0-15.0 [facility] Estimated glomerular filtrat ion rate (GFR) non- Americanon 05-04-2024 GFR/1.73 sq M.predicted among non-blacks MDRD (S/P/Bld) [Vol rate/Area] 21 mL/min/{1.73_m2} Low >=60 [facility] Globulin Calc (S) [Mass/Vol] on 05-04-2024 Globulin (S) [Mass/Vol] 4.9 g/dL [facility] Hematocrit Auto (Bld) [Volum e fraction]on 05-04-2024 Hematocrit (Bld) [Volume fraction] 37.6 % 36.0-48.0 [facility] Hemoglobin [Mass/volume] in Bloodon 05-04-2024 Hemoglobin (Bld) [Mass/Vol] 12.0 g/dL 12.0-16.0 [facility] Laboratory - Chemistry and C hemistry - challengeon 05-04-2024 Bilirubin Ql (U) Negative NEGATIVE [facility] Glucose (U) [Mass/Vol] 250 mg/dL Abnormal NEGATIVE [facility] Ketones Ql (U) Negative NEGATIVE [facility] pH (U) 6.0 [pH] 5.0-9.0 [facility] Specific gravity (U) [Rel density] 1.015 1.005-1.025 [facility] Urobilinogen Qn (U) 0.2 {Meka'U}/dL 0.2-1.0 [facility] Albumin [Mass/Vol] 2.8 g/dL Low 3.4-5.0 [facility] ALP [Catalytic activity/Vol] 86 U/L 46-116 [facility] ALT [Catalytic activity/Vol] 16 U/L 14-59 [facility] Ammonia (P) [Moles/Vol] 12 umol/L 11-32 [facility] AST [Catalytic activity/Vol] 8 U/L Low 15-37 [facility] Bilirubin [Mass/Vol] 0.4 mg/dL 0.2-1.0 [facility] Calcium [Mass/Vol] 8.8 mg/dL 8.5-10.1 [facility] Chloride [Moles/Vol] 101 mmol/L 98-107 [facility] CO2 [Moles/Vol] 22.4 mmol/L 21.0-32.0 [facility] Creatinine [Mass/Vol] 2.24 mg/dL High 0.55-1.02 [facility] GFR/1.73 sq M.predicted MDRD (S/P/Bld) [Vol rate/Area] 26 mL/min/{1.73_m2} Low >=60 [facility] Glucose [Mass/Vol] 369 mg/dL High 74-106 [facility] Lactate [Moles/Vol] 1.2 mmol/L 0.4-2.0 [facility] Magnesium [Mass/Vol] 1.7 mg/dL Low 1.8-2.4 [facility] Natriuretic peptide B (Bld) [Mass/Vol] 2342.0 pg/mL High <=1800.0 [facility] Comment on above: RESULTS CALLED TO RENETTA Renteria RN @BY Andrea Long, MLTat 1126 Potassium [Moles/Vol] 5.6 mmol/L High 3.5-5.1 [facility] Protein [Mass/Vol] 7.7 g/dL 6.4-8.2 [facility] Sodium [Moles/Vol] 134 mmol/L Low 136-145 [facility] T4 [Mass/Vol] 11.80 ug/dL 4.80-13.90 [facility] TSH Qn 0.933 m[IU]/L 0.358-3.740 [facility] Urea nitrogen [Mass/Vol] 86.0 mg/dL High 7.0-18.0 [facility] Comment on above: RESULTS CALLED TO RENETTA Renteria RN @BY Andrea Long MLTat 1126 Urea nitrogen/Creatinine [Mass ratio] 38.4 mg/mg [facility] Laboratory - Hematology and Cell countson 05-04-2024 Immature granulocytes/100 WBC (Bld) 0.3 % 0.0-0.5 [facility] Laboratory - Microbiology an d Antimicrobial susceptibilityOrdered By: Carl Morales on 05-04-2024 Bacteria identified Cx Nom (U) [facility] Laboratory - Specimen inform ationon 05-04-2024 Appearance (U) SLIGHTLY CLOUDY Abnormal CLEAR [facility] Color (U) YELLOW YELLOW [facility] Laboratory - Urinalysison Hyaline casts LM Ql (Urine sed) RARE [facility] Leukocyte esterase Test strip Ql (U) Negative NEGATIVE [facility] Mucus Ql (Urine sed) NONE SEEN NONE SEEN [facility] Nitrite Ql (U) Negative NEGATIVE [facility] Protein Ql (U) 100 mg/dL Abnormal NEG/TRACE [facility] Leukocytes [#/volume] correc gali for nucleated erythrocytes in Blood by Automated counon 05-04-2024 WBC corrected for nucl RBC Auto (Bld) [#/Vol] 6.9 10 3/uL 4.0-11.0 [facility] Lymphocytes Auto (Bld) [#/Vo l]on 05-04-2024 Lymphocytes (Bld) [#/Vol] 1.2 10 3/uL 1.2-3.8 [facility] Lymphocytes/100 WBC Auto (Bl d)on 05-04-2024 Lymphocytes/100 WBC (Bld) 17.8 % Low 20.5-60.0 [facility] MCH Auto (RBC) [Entitic mass ]on 05-04-2024 MCH (RBC) [Entitic mass] 29.3 pg 26.7-34.0 [facility] MCHC Auto (RBC) [Mass/Vol]on 05-04-2024 MCHC (RBC) [Mass/Vol] 31.9 g/dL 29.9-35.2 [facility] MCV Auto (RBC) [Entitic vol] on 05-04-2024 MCV (RBC) [Entitic vol] 91.9 fL 81.0-99.0 [facility] Monocytes Auto (Bld) [#/Vol] on 05-04-2024 Monocytes (Bld) [#/Vol] 0.7 10 3/uL 0.3-0.8 [facility] Monocytes/100 WBC Auto (Bld) on 05-04-2024 Monocytes/100 WBC (Bld) 10.4 % 1.7-12.0 [facility] Neutrophils Auto (Bld) [#/Vo l]on 05-04-2024 Neutrophils (Bld) [#/Vol] 4.8 10 3/uL 1.4-6.5 [facility] Neutrophils/100 WBC Auto (Bl d)on 05-04-2024 Neutrophils/100 WBC (Bld) 68.9 % 43.0-75.0 [facility] No Panel Informationon 05-04 Acetone Level Negative NEGATIVE [facility] Negative NEGATIVE [facility] Urine Bacteria MODERATE #/HPF Abnormal NONE SEEN [facility] Urine Culture Reflexed ALREADY ORDERED [facility] Urine Microscopic Review YES [facility] Urine Occult Blood MODERATE Abnormal NEGATIVE [facility] Urine Other Casts SEEN #/LPF Abnormal NONE SEEN [facility] Urine Other Crystals None Seen #/HPF None Seen [facility] Urine RBC 2-5 #/HPF Abnormal 0-2 [facility] Urine Squamous Epithelial Cells FEW #/LPF Abnormal NONE/RARE [facility] Urine WBC 2-5 #/HPF Abnormal NONE SEEN [facility] ALREADY ORDERED [facility] YES [facility] SEEN #/LPF Abnormal NONE SEEN [facility] Negative NEGATIVE [facility] None Seen #/HPF None Seen [facility] MODERATE Abnormal NEGATIVE [facility] MODERATE #/HPF Abnormal NONE SEEN [facility] SLIGHTLY CLOUDY Abnormal CLEAR [facility] RARE [facility] YELLOW YELLOW [facility] NONE SEEN NONE SEEN [facility] 250 mg/dL Abnormal NEGATIVE [facility] 2-5 #/HPF Abnormal NONE SEEN [facility] FEW #/LPF Abnormal NONE/RARE [facility] 6.0 5.0-9.0 [facility] 100 mg/dL Abnormal NEG/TRACE [facility] 1.015 1.005-1.025 [facility] 0.2 EU/dL 0.2-1.0 [facility] Eosinophils # (Auto) 0.1 10 3/uL 0.0-0.7 [facility]ir [facility] Immature Granulocyte # (Auto) 0.02 10 3/uL 0.00-0.03 [facility] Troponin I High Sensitivity 10.5 pg/mL 4.0-51.3 [facility] Comment on above: CUT-OFF POINTS [...] Partial Pressure CO2 38.5 mm[Hg] Low 40.0-52.0 [facility] Venous Blood pH 7.353 7.330-7.430 [facility] 0.933 u[iU]/mL 0.358-3.740 [facility] 11.80 ug/dL 4.80-13.90 [facility] 1.7 mg/dL Low 1.8-2.4 [facility] 2342.0 pg/mL High <=1800.0 [facility] 1.2 mmol/L 0.4-2.0 [facility] 10.5 pg/mL 4.0-51.3 [facility] 12 umol/L 11-32 [facility] 38.5 mm[Hg] Low 40.0-52.0 [facility] 7.353 7.330-7.430 [facility] 2.8 g/dL Low 3.4-5.0 [facility] 0.1 10 3/uL 0.0-0.7 [facility] 86 U/L 46-116 [facility] 16 U/L 14-59 [facility] 8 U/L Low 15-37 [facility] 38.4 [facility] 0.02 10 3/uL 0.00-0.03 [facility] 86.0 mg/dL High 7.0-18.0 [facility] 0.3 % 0.0-0.5 [facility] 8.8 mg/dL 8.5-10.1 [facility] 101 mmol/L 98-107 [facility] 22.4 mmol/L 21.0-32.0 [facility] 2.24 mg/dL High 0.55-1.02 [facility] 26 Low >=60 [facility] 369 mg/dL High 74-106 [facility] 5.6 mmol/L High 3.5-5.1 [facility] 134 mmol/L Low 136-145 [facility] 0.4 mg/dL 0.2-1.0 [facility] 7.7 g/dL 6.4-8.2 [facility] No Panel InformationOrdered By: LAMINE SINGH on 05-04-2024 Blood Culture 1 [facility] Platelet mean volume Auto (B ld) [Entitic vol]on 05-04-2024 Platelet mean volume (Bld) [Entitic vol] 11.4 fL 9.5-13.5 [facility] Platelets Auto (Bld) [#/Vol] on 05-04-2024 Platelets (Bld) [#/Vol] 160 10 3/uL 150-450 [facility] RBC Auto (Bld) [#/Vol]on RBC (Bld) [#/Vol] 4.09 10 6/uL Low 4.20-5.40 [facility] Serum or plasma albumin/glob ulin mass ratioon 05-04-2024 Albumin/Globulin [Mass ratio] 0.6 {ratio} [facility] Serum or plasma anion gap de terminationon 05-04-2024 Anion gap [Moles/Vol] 16.2 mmol/L Fi [facility] Basophils Auto (Bld) [#/Vol] on 05-01-2024 Basophils (Bld) [#/Vol] 0.1 10 3/uL 0.0-0.1 [facility] Basophils/100 WBC Auto (Bld) on 05-01-2024 Basophils/100 WBC (Bld) 0.7 % 0.2-2.0 [facility] Eosinophils/100 WBC Auto (Bl d)on 05-01-2024 Eosinophils/100 WBC (Bld) 2.3 % 0.9-7.0 [facility] Erythrocyte distribution wid th Auto (RBC) [Ratio]on 05-01-2024 Erythrocyte distribution width (RBC) [Ratio] 13.6 % 11.0-15.0 [facility] Estimated glomerular filtrat ion rate (GFR) non- Americanon 05-01-2024 GFR/1.73 sq M.predicted among non-blacks MDRD (S/P/Bld) [Vol rate/Area] 22 mL/min/{1.73_m2} Low >=60 [facility] Globulin Calc (S) [Mass/Vol] on 05-01-2024 Globulin (S) [Mass/Vol] 4.4 g/dL [facility] Hematocrit Auto (Bld) [Volum e fraction]on 05-01-2024 Hematocrit (Bld) [Volume fraction] 37.5 % 36.0-48.0 [facility] Hemoglobin [Mass/volume] in Bloodon 05-01-2024 Hemoglobin (Bld) [Mass/Vol] 12.1 g/dL 12.0-16.0 [facility] Laboratory - Chemistry and C hemistry - challengeon 05-01-2024 Calcium [Mass/Vol] 9.2 mg/dL 8.5-10.1 [facility] Chloride [Moles/Vol] 104 mmol/L 98-107 [facility] CO2 [Moles/Vol] 23.2 mmol/L 21.0-32.0 [facility] Creatinine [Mass/Vol] 2.14 mg/dL High 0.55-1.02 [facility] GFR/1.73 sq M.predicted MDRD (S/P/Bld) [Vol rate/Area] 27 mL/min/{1.73_m2} Low >=60 [facility] Glucose [Mass/Vol] 220 mg/dL High 74-106 [facility] Potassium [Moles/Vol] 5.3 mmol/L High 3.5-5.1 [facility] Sodium [Moles/Vol] 134 mmol/L Low 136-145 [facility] Urea nitrogen [Mass/Vol] 87.0 mg/dL High 7.0-18.0 [facility] Comment on above: RESULTS CALLED TO Klaus Michaels RN @BY Sury Blaynedaljit [phone] Urea nitrogen/Creatinine [Mass ratio] 40.7 mg/mg [facility] Albumin [Mass/Vol] 2.8 g/dL Low 3.4-5.0 [facility] ALP [Catalytic activity/Vol] 80 U/L 46-116 [facility] ALT [Catalytic activity/Vol] 16 U/L 14-59 [facility] AST [Catalytic activity/Vol] 11 U/L Low 15-37 [facility] Bilirubin [Mass/Vol] 0.4 mg/dL 0.2-1.0 [facility] Natriuretic peptide B (Bld) [Mass/Vol] 1624.0 pg/mL <=1800.0 [facility] Protein [Mass/Vol] 7.2 g/dL 6.4-8.2 [facility] Laboratory - Hematology and Cell countson 05-01-2024 Immature granulocytes/100 WBC (Bld) 0.1 % 0.0-0.5 [facility] Leukocytes [#/volume] correc gali for nucleated erythrocytes in Blood by Automated counon 05-01-2024 WBC corrected for nucl RBC Auto (Bld) [#/Vol] 7.4 10 3/uL 4.0-11.0 [facility] Lymphocytes Auto (Bld) [#/Vo l]on 05-01-2024 Lymphocytes (Bld) [#/Vol] 2.2 10 3/uL 1.2-3.8 [facility] Lymphocytes/100 WBC Auto (Bl d)on 05-01-2024 Lymphocytes/100 WBC (Bld) 29.4 % 20.5-60.0 [facility] MCH Auto (RBC) [Entitic mass ]on 05-01-2024 MCH (RBC) [Entitic mass] 29.2 pg 26.7-34.0 [facility] MCHC Auto (RBC) [Mass/Vol]on 05-01-2024 MCHC (RBC) [Mass/Vol] 32.3 g/dL 29.9-35.2 [facility] MCV Auto (RBC) [Entitic vol] on 05-01-2024 MCV (RBC) [Entitic vol] 90.4 fL 81.0-99.0 [facility] Monocytes Auto (Bld) [#/Vol] on 05-01-2024 Monocytes (Bld) [#/Vol] 0.9 10 3/uL High 0.3-0.8 [facility] Monocytes/100 WBC Auto (Bld) on 05-01-2024 Monocytes/100 WBC (Bld) 11.5 % 1.7-12.0 [facility] Neutrophils Auto (Bld) [#/Vo l]on 05-01-2024 Neutrophils (Bld) [#/Vol] 4.1 10 3/uL 1.4-6.5 [facility] Neutrophils/100 WBC Auto (Bl d)on 05-01-2024 Neutrophils/100 WBC (Bld) 56.0 % 43.0-75.0 [facility] No Panel Informationon 05-01 40.7 [facility] 87.0 mg/dL High 7.0-18.0 [facility] 9.2 mg/dL 8.5-10.1 [facility] 104 mmol/L 98-107 [facility] 23.2 mmol/L 21.0-32.0 [facility] 2.14 mg/dL High 0.55-1.02 [facility] 27 Low >=60 [facility] 220 mg/dL High 74-106 [facility] 5.3 mmol/L High 3.5-5.1 [facility] 134 mmol/L Low 136-145 [facility] Eosinophils # (Auto) 0.2 10 3/uL 0.0-0.7 [facility] Immature Granulocyte # (Auto) 0.01 10 3/uL 0.00-0.03 [facility] 1624.0 pg/mL <=1800.0 [facility] 2.8 g/dL Low 3.4-5.0 [facility] 0.2 10 3/uL 0.0-0.7 [facility] 80 U/L 46-116 [facility] 16 U/L 14-59 [facility] 11 U/L Low 15-37 [facility] 0.01 10 3/uL 0.00-0.03 [facility] 0.1 % 0.0-0.5 [facility] 0.4 mg/dL 0.2-1.0 [facility] 7.2 g/dL 6.4-8.2 [facility] Platelet mean volume Auto (B ld) [Entitic vol]on 05-01-2024 Platelet mean volume (Bld) [Entitic vol] 11.6 fL 9.5-13.5 [facility] Platelets Auto (Bld) [#/Vol] on 05-01-2024 Platelets (Bld) [#/Vol] 151 10 3/uL 150-450 [facility] RBC Auto (Bld) [#/Vol]on RBC (Bld) [#/Vol] 4.15 10 6/uL Low 4.20-5.40 [facility] Serum or plasma albumin/glob ulin mass ratioon 05-01-2024 Albumin/Globulin [Mass ratio] 0.6 {ratio} [facility] Serum or plasma anion gap de terminationon 05-01-2024 Anion gap [Moles/Vol] 12.1 mmol/L Fi [facility] Basophils Auto (Bld) [#/Vol] on 04-30-2024 Basophils (Bld) [#/Vol] 0.1 10 3/uL 0.0-0.1 [facility] Basophils/100 WBC Auto (Bld) on 04-30-2024 Basophils/100 WBC (Bld) 0.9 % 0.2-2.0 [facility] Eosinophils/100 WBC Auto (Bl d)on 04-30-2024 Eosinophils/100 WBC (Bld) 2.4 % 0.9-7.0 [facility] Erythrocyte distribution wid th Auto (RBC) [Ratio]on 04-30-2024 Erythrocyte distribution width (RBC) [Ratio] 13.5 % 11.0-15.0 [facility] Estimated glomerular filtrat ion rate (GFR) non- Americanon 04-30-2024 GFR/1.73 sq M.predicted among non-blacks MDRD (S/P/Bld) [Vol rate/Area] 15 mL/min/{1.73_m2} Low >=60 [facility] Fibrin D-dimer [Presence] in Platelet poor plasma by Latex agglutinationon 04-30-2024 Fibrin D-dimer LA Ql (PPP) 0.24 mg/L FEU <=0.59 [facility] Comment on above: Increases in [...] Hematocrit (Bld) [Volume fraction] 38.6 % 36.0-48.0 [facility] Hemoglobin [Mass/volume] in Bloodon 04-30-2024 Hemoglobin (Bld) [Mass/Vol] 12.5 g/dL 12.0-16.0 [facility] Laboratory - Chemistry and C hemistry - challengeon 04-30-2024 Calcium [Mass/Vol] 9.0 mg/dL 8.5-10.1 [facility] Chloride [Moles/Vol] 100 mmol/L 98-107 [facility] CO2 [Moles/Vol] 24.4 mmol/L 21.0-32.0 [facility] Creatinine [Mass/Vol] 3.02 mg/dL High 0.55-1.02 [facility] GFR/1.73 sq M.predicted MDRD (S/P/Bld) [Vol rate/Area] 18 mL/min/{1.73_m2} Low >=60 [facility] Glucose [Mass/Vol] 271 mg/dL High 74-106 [facility] Magnesium [Mass/Vol] 1.8 mg/dL 1.8-2.4 [facility] Natriuretic peptide B (Bld) [Mass/Vol] 1485.0 pg/mL <=1800.0 [facility] Potassium [Moles/Vol] 5.3 mmol/L High 3.5-5.1 [facility] Sodium [Moles/Vol] 133 mmol/L Low 136-145 [facility] Urea nitrogen [Mass/Vol] 99.0 mg/dL High 7.0-18.0 [facility] Comment on above: RESULTS CALLED TO Yoel WADE)@BY Franchesca Huynh MLT at 0603 Urea nitrogen/Creatinine [Mass ratio] 32.8 mg/mg [facility] Laboratory - Hematology and Cell countson 04-30-2024 Immature granulocytes/100 WBC (Bld) 0.1 % 0.0-0.5 [facility] Leukocytes [#/volume] correc gali for nucleated erythrocytes in Blood by Automated counon 04-30-2024 WBC corrected for nucl RBC Auto (Bld) [#/Vol] 7.5 10 3/uL 4.0-11.0 [facility] Lymphocytes Auto (Bld) [#/Vo l]on 04-30-2024 Lymphocytes (Bld) [#/Vol] 2.1 10 3/uL 1.2-3.8 [facility] Lymphocytes/100 WBC Auto (Bl d)on 04-30-2024 Lymphocytes/100 WBC (Bld) 27.8 % 20.5-60.0 [facility] MCH Auto (RBC) [Entitic mass ]on 04-30-2024 MCH (RBC) [Entitic mass] 29.6 pg 26.7-34.0 [facility] MCHC Auto (RBC) [Mass/Vol]on 04-30-2024 MCHC (RBC) [Mass/Vol] 32.4 g/dL 29.9-35.2 [facility] MCV Auto (RBC) [Entitic vol] on 04-30-2024 MCV (RBC) [Entitic vol] 91.5 fL 81.0-99.0 [facility] Monocytes Auto (Bld) [#/Vol] on 04-30-2024 Monocytes (Bld) [#/Vol] 0.8 10 3/uL 0.3-0.8 [facility] Monocytes/100 WBC Auto (Bld) on 04-30-2024 Monocytes/100 WBC (Bld) 10.0 % 1.7-12.0 [facility] Neutrophils Auto (Bld) [#/Vo l]on 04-30-2024 Neutrophils (Bld) [#/Vol] 4.4 10 3/uL 1.4-6.5 [facility] Neutrophils/100 WBC Auto (Bl d)on 04-30-2024 Neutrophils/100 WBC (Bld) 58.8 % 43.0-75.0 [facility] No Panel Informationon 04-30 Troponin I High Sensitivity 12.6 pg/mL 4.0-51.3 [facility] Comment on above: CUT-OFF POINTS [...] DIAGNOSTIC AND CLINICAL INFORMATION. 1.8 mg/dL 1.8-2.4 [facility] 1485.0 pg/mL <=1800.0 [facility] 12.6 pg/mL 4.0-51.3 [facility] 32.8 [facility] 99.0 mg/dL High 7.0-18.0 [facility] 9.0 mg/dL 8.5-10.1 [facility] 100 mmol/L 98-107 [facility] 24.4 mmol/L 21.0-32.0 [facility] 3.02 mg/dL High 0.55-1.02 [facility] 18 Low >=60 [facility] 271 mg/dL High 74-106 [facility] 5.3 mmol/L High 3.5-5.1 [facility] 133 mmol/L Low 136-145 [facility] Eosinophils # (Auto) 0.2 10 3/uL 0.0-0.7 [facility] Immature Granulocyte # (Auto) 0.01 10 3/uL 0.00-0.03 [facility] 0.2 10 3/uL 0.0-0.7 [facility] 0.01 10 3/uL 0.00-0.03 [facility] 0.1 % 0.0-0.5 [facility] Platelet mean volume Auto (B ld) [Entitic vol]on 04-30-2024 Platelet mean volume (Bld) [Entitic vol] 12.2 fL 9.5-13.5 [facility] Platelets Auto (Bld) [#/Vol] on 04-30-2024 Platelets (Bld) [#/Vol] 221 10 3/uL 150-450 [facility] RBC Auto (Bld) [#/Vol]on RBC (Bld) [#/Vol] 4.22 10 6/uL 4.20-5.40 [facility] Serum or plasma anion gap de terminationon 04-30-2024 Anion gap [Moles/Vol] 13.9 [facility] Basophils Auto (Bld) [#/Vol] on 03-28-2024 Basophils (Bld) [#/Vol] 0.1 10 3/uL 0.0-0.1 [facility] Basophils/100 WBC Auto (Bld) on 03-28-2024 Basophils/100 WBC (Bld) 0.9 % 0.2-2.0 [facility] Eosinophils/100 WBC Auto (Bl d)on 03-28-2024 Eosinophils/100 WBC (Bld) 1.7 % 0.9-7.0 [facility] Erythrocyte distribution wid th Auto (RBC) [Ratio]on 03-28-2024 Erythrocyte distribution width (RBC) [Ratio] 14.2 % 11.0-15.0 [facility] Estimated glomerular filtrat ion rate (GFR) non- Americanon 03-28-2024 GFR/1.73 sq M.predicted among non-blacks MDRD (S/P/Bld) [Vol rate/Area] 39 mL/min/{1.73_m2} Low >=60 [facility] Globulin Calc (S) [Mass/Vol] on 03-28-2024 Globulin (S) [Mass/Vol] 4.8 g/dL [facility] Hematocrit Auto (Bld) [Volum e fraction]on 03-28-2024 Hematocrit (Bld) [Volume fraction] 40.0 % 36.0-48.0 [facility] Hemoglobin [Mass/volume] in Bloodon 03-28-2024 Hemoglobin (Bld) [Mass/Vol] 12.6 g/dL 12.0-16.0 [facility] Laboratory - Chemistry and C hemistry - challengeon 03-28-2024 Albumin [Mass/Vol] 2.5 g/dL Low 3.4-5.0 [facility] ALP [Catalytic activity/Vol] 93 U/L 46-116 [facility] ALT [Catalytic activity/Vol] 9 U/L Low 14-59 [facility] AST [Catalytic activity/Vol] 10 U/L Low 15-37 [facility] Bilirubin [Mass/Vol] 0.9 mg/dL 0.2-1.0 [facility] Calcium [Mass/Vol] 8.5 mg/dL 8.5-10.1 [facility] Chloride [Moles/Vol] 96 mmol/L Low 98-107 [facility] CO2 [Moles/Vol] 27.1 mmol/L 21.0-32.0 [facility] Creatinine [Mass/Vol] 1.33 mg/dL High 0.55-1.02 [facility] GFR/1.73 sq M.predicted MDRD (S/P/Bld) [Vol rate/Area] 47 mL/min/{1.73_m2} Low >=60 [facility] Glucose [Mass/Vol] 261 mg/dL High 74-106 [facility] Magnesium [Mass/Vol] 1.8 mg/dL 1.8-2.4 [facility] Natriuretic peptide B (Bld) [Mass/Vol] 3338.0 pg/mL High <=1800.0 [facility] Comment on above: RESULTS CALLED TO Claritza Sellers (RN)@BY BRANDON BarberT at 0554 Potassium [Moles/Vol] 3.8 mmol/L 3.5-5.1 [facility] Protein [Mass/Vol] 7.3 g/dL 6.4-8.2 [facility] Sodium [Moles/Vol] 133 mmol/L Low 136-145 [facility] Urea nitrogen [Mass/Vol] 36.0 mg/dL High 7.0-18.0 [facility] Urea nitrogen/Creatinine [Mass ratio] 27.1 mg/mg [facility] Laboratory - Hematology and Cell countson 03-28-2024 Immature granulocytes/100 WBC (Bld) 0.4 % 0.0-0.5 [facility] Leukocytes [#/volume] correc gali for nucleated erythrocytes in Blood by Automated counon 03-28-2024 WBC corrected for nucl RBC Auto (Bld) [#/Vol] 8.4 10 3/uL 4.0-11.0 [facility] Lymphocytes Auto (Bld) [#/Vo l]on 03-28-2024 Lymphocytes (Bld) [#/Vol] 1.8 10 3/uL 1.2-3.8 [facility] Lymphocytes/100 WBC Auto (Bl d)on 03-28-2024 Lymphocytes/100 WBC (Bld) 21.4 % 20.5-60.0 [facility] MCH Auto (RBC) [Entitic mass ]on 03-28-2024 MCH (RBC) [Entitic mass] 29.0 pg 26.7-34.0 [facility] MCHC Auto (RBC) [Mass/Vol]on 03-28-2024 MCHC (RBC) [Mass/Vol] 31.5 g/dL 29.9-35.2 [facility] MCV Auto (RBC) [Entitic vol] on 03-28-2024 MCV (RBC) [Entitic vol] 92.0 fL 81.0-99.0 [facility] Monocytes Auto (Bld) [#/Vol] on 03-28-2024 Monocytes (Bld) [#/Vol] 0.8 10 3/uL 0.3-0.8 [facility] Monocytes/100 WBC Auto (Bld) on 03-28-2024 Monocytes/100 WBC (Bld) 9.7 % 1.7-12.0 [facility] Neutrophils Auto (Bld) [#/Vo l]on 03-28-2024 Neutrophils (Bld) [#/Vol] 5.6 10 3/uL 1.4-6.5 [facility] Neutrophils/100 WBC Auto (Bl d)on 03-28-2024 Neutrophils/100 WBC (Bld) 65.9 % 43.0-75.0 [facility] No Panel Informationon 03-28 Eosinophils # (Auto) 0.1 10 3/uL 0.0-0.7 [facility] Immature Granulocyte # (Auto) 0.03 10 3/uL 0.00-0.03 [facility] 3338.0 pg/mL High <=1800.0 [facility] 1.8 mg/dL 1.8-2.4 [facility] 2.5 g/dL Low 3.4-5.0 [facility] 0.1 10 3/uL 0.0-0.7 [facility] 93 U/L 46-116 [facility] 9 U/L Low 14-59 [facility] 10 U/L Low 15-37 [facility] 27.1 [facility] 0.03 10 3/uL 0.00-0.03 [facility] 36.0 mg/dL High 7.0-18.0 [facility] 0.4 % 0.0-0.5 [facility] 8.5 mg/dL 8.5-10.1 [facility] 96 mmol/L Low 98-107 [facility] 27.1 mmol/L 21.0-32.0 [facility] 1.33 mg/dL High 0.55-1.02 [facility] 47 Low >=60 [facility] 261 mg/dL High 74-106 [facility] 3.8 mmol/L 3.5-5.1 [facility] 133 mmol/L Low 136-145 [facility] 0.9 mg/dL 0.2-1.0 [facility] 7.3 g/dL 6.4-8.2 [facility] Platelet mean volume Auto (B ld) [Entitic vol]on 03-28-2024 Platelet mean volume (Bld) [Entitic vol] 10.5 fL 9.5-13.5 [facility] Platelets Auto (Bld) [#/Vol] on 03-28-2024 Platelets (Bld) [#/Vol] 197 10 3/uL 150-450 [facility] RBC Auto (Bld) [#/Vol]on RBC (Bld) [#/Vol] 4.35 10 6/uL 4.20-5.40 [facility] Serum or plasma albumin/glob ulin mass ratioon 03-28-2024 Albumin/Globulin [Mass ratio] 0.5 {ratio} [facility] Serum or plasma anion gap de terminationon 03-28-2024 Anion gap [Moles/Vol] 13.7 mmol/L Fi [facility] Basophils Auto (Bld) [#/Vol] on 03-27-2024 Basophils (Bld) [#/Vol] 0.1 10 3/uL 0.0-0.1 [facility] Basophils/100 WBC Auto (Bld) on 03-27-2024 Basophils/100 WBC (Bld) 0.8 % 0.2-2.0 [facility] Eosinophils/100 WBC Auto (Bl d)on 03-27-2024 Eosinophils/100 WBC (Bld) 1.1 % 0.9-7.0 [facility] Erythrocyte distribution wid th Auto (RBC) [Ratio]on 03-27-2024 Erythrocyte distribution width (RBC) [Ratio] 14.2 % 11.0-15.0 [facility] Estimated glomerular filtrat ion rate (GFR) non- Americanon 03-27-2024 GFR/1.73 sq M.predicted among non-blacks MDRD (S/P/Bld) [Vol rate/Area] 44 mL/min/{1.73_m2} Low >=60 [facility] Globulin Calc (S) [Mass/Vol] on 03-27-2024 Globulin (S) [Mass/Vol] 4.6 g/dL [facility] Glucose mean value [Mass/vol ume] in Blood Estimated from glycated hemoglobinon 03-27-2024 Average glucose Estimated from glycated hemoglobin (Bld) [Mass/Vol] 275 mg/dL [facility] Hematocrit Auto (Bld) [Volum e fraction]on 03-27-2024 Hematocrit (Bld) [Volume fraction] 37.4 % 36.0-48.0 [facility] Hemoglobin [Mass/volume] in Bloodon 03-27-2024 Hemoglobin (Bld) [Mass/Vol] 12.1 g/dL 12.0-16.0 [facility] Laboratory - Chemistry and C hemistry - challengeon 03-27-2024 Albumin [Mass/Vol] 2.6 g/dL Low 3.4-5.0 [facility] ALP [Catalytic activity/Vol] 89 U/L 46-116 [facility] ALT [Catalytic activity/Vol] 12 U/L Low 14-59 [facility] AST [Catalytic activity/Vol] 9 U/L Low 15-37 [facility] Bilirubin [Mass/Vol] 0.9 mg/dL 0.2-1.0 [facility] Calcium [Mass/Vol] 9.1 mg/dL 8.5-10.1 [facility] Chloride [Moles/Vol] 99 mmol/L 98-107 [facility] CO2 [Moles/Vol] 28.8 mmol/L 21.0-32.0 [facility] Creatinine [Mass/Vol] 1.19 mg/dL High 0.55-1.02 [facility] GFR/1.73 sq M.predicted MDRD (S/P/Bld) [Vol rate/Area] 53 mL/min/{1.73_m2} Low >=60 [facility] Glucose [Mass/Vol] 273 mg/dL High 74-106 [facility] Magnesium [Mass/Vol] 1.7 mg/dL Low 1.8-2.4 [facility] Natriuretic peptide B (Bld) [Mass/Vol] 4572.0 pg/mL High <=1800.0 [facility] Comment on above: RESULTS CALLED TO SA RA MIGUEL RN @BY Alla Kevin [id number] Potassium [Moles/Vol] 3.6 mmol/L 3.5-5.1 [facility] Protein [Mass/Vol] 7.2 g/dL 6.4-8.2 [facility] Sodium [Moles/Vol] 135 mmol/L Low 136-145 [facility] Urea nitrogen [Mass/Vol] 34.0 mg/dL High 7.0-18.0 [facility] Urea nitrogen/Creatinine [Mass ratio] 28.6 mg/mg [facility] Laboratory - Hematology and Cell countson 03-27-2024 HbA1c (Bld) [Mass fraction] 11.2 % High 4.5-6.2 [facility] Comment on above: ADA RECOMMENDED LIMI T 4.0 - 6.0ADA THERAPEUTIC TARGET < 7.0ACTION SUGGESTED> 7.0 Immature granulocytes/100 WBC (Bld) 0.3 % 0.0-0.5 [facility] Leukocytes [#/volume] correc gali for nucleated erythrocytes in Blood by Automated counon 03-27-2024 WBC corrected for nucl RBC Auto (Bld) [#/Vol] 9.7 10 3/uL 4.0-11.0 [facility] Lymphocytes Auto (Bld) [#/Vo l]on 03-27-2024 Lymphocytes (Bld) [#/Vol] 1.3 10 3/uL 1.2-3.8 [facility] Lymphocytes/100 WBC Auto (Bl d)on 03-27-2024 Lymphocytes/100 WBC (Bld) 13.3 % Low 20.5-60.0 [facility] MCH Auto (RBC) [Entitic mass ]on 03-27-2024 MCH (RBC) [Entitic mass] 29.2 pg 26.7-34.0 [facility] MCHC Auto (RBC) [Mass/Vol]on 03-27-2024 MCHC (RBC) [Mass/Vol] 32.4 g/dL 29.9-35.2 [facility] MCV Auto (RBC) [Entitic vol] on 03-27-2024 MCV (RBC) [Entitic vol] 90.3 fL 81.0-99.0 [facility] Monocytes Auto (Bld) [#/Vol] on 03-27-2024 Monocytes (Bld) [#/Vol] 0.8 10 3/uL 0.3-0.8 [facility] Monocytes/100 WBC Auto (Bld) on 03-27-2024 Monocytes/100 WBC (Bld) 8.4 % 1.7-12.0 [facility] Neutrophils Auto (Bld) [#/Vo l]on 03-27-2024 Neutrophils (Bld) [#/Vol] 7.4 10 3/uL High 1.4-6.5 [facility] Neutrophils/100 WBC Auto (Bl d)on 03-27-2024 Neutrophils/100 WBC (Bld) 76.1 % High 43.0-75.0 [facility] No Panel Informationon 03-27 Eosinophils # (Auto) 0.1 10 3/uL 0.0-0.7 [facility] Immature Granulocyte # (Auto) 0.03 10 3/uL 0.00-0.03 [facility] 4572.0 pg/mL High <=1800.0 [facility] 1.7 mg/dL Low 1.8-2.4 [facility] 11.2 % High 4.5-6.2 [facility] 2.6 g/dL Low 3.4-5.0 [facility] 0.1 10 3/uL 0.0-0.7 [facility] 89 U/L 46-116 [facility] 12 U/L Low 14-59 [facility] 9 U/L Low 15-37 [facility] 28.6 [facility] 0.03 10 3/uL 0.00-0.03 [facility] 34.0 mg/dL High 7.0-18.0 [facility] 0.3 % 0.0-0.5 [facility] 9.1 mg/dL 8.5-10.1 [facility] 99 mmol/L 98-107 [facility] 28.8 mmol/L 21.0-32.0 [facility] 1.19 mg/dL High 0.55-1.02 [facility] 53 Low >=60 [facility] 273 mg/dL High 74-106 [facility] 3.6 mmol/L 3.5-5.1 [facility] 135 mmol/L Low 136-145 [facility] 0.9 mg/dL 0.2-1.0 [facility] 7.2 g/dL 6.4-8.2 [facility] Platelet mean volume Auto (B ld) [Entitic vol]on 03-27-2024 Platelet mean volume (Bld) [Entitic vol] 10.6 fL 9.5-13.5 [facility] Platelets Auto (Bld) [#/Vol] on 03-27-2024 Platelets (Bld) [#/Vol] 204 10 3/uL 150-450 [facility] RBC Auto (Bld) [#/Vol]on RBC (Bld) [#/Vol] 4.14 10 6/uL Low 4.20-5.40 [facility] Serum or plasma albumin/glob ulin mass ratioon 03-27-2024 Albumin/Globulin [Mass ratio] 0.6 {ratio} [facility] Serum or plasma anion gap de terminationon 03-27-2024 Anion gap [Moles/Vol] 10.8 mmol/L Fi [facility] Basophils Auto (Bld) [#/Vol] on 03-26-2024 Basophils (Bld) [#/Vol] 0.1 10 3/uL 0.0-0.1 [facility] Basophils/100 WBC Auto (Bld) on 03-26-2024 Basophils/100 WBC (Bld) 0.8 % 0.2-2.0 [facility] Eosinophils/100 WBC Auto (Bl d)on 03-26-2024 Eosinophils/100 WBC (Bld) 1.2 % 0.9-7.0 [facility] Erythrocyte distribution wid th Auto (RBC) [Ratio]on 03-26-2024 Erythrocyte distribution width (RBC) [Ratio] 14.5 % 11.0-15.0 [facility] Estimated glomerular filtrat ion rate (GFR) non- Americanon 03-26-2024 GFR/1.73 sq M.predicted among non-blacks MDRD (S/P/Bld) [Vol rate/Area] 46 mL/min/{1.73_m2} Low >=60 [facility] Glucose mean value [Mass/vol ume] in Blood Estimated from glycated hemoglobinon 03-26-2024 Average glucose Estimated from glycated hemoglobin (Bld) [Mass/Vol] 275 mg/dL [facility] Hematocrit Auto (Bld) [Volum e fraction]on 03-26-2024 Hematocrit (Bld) [Volume fraction] 40.1 % 36.0-48.0 [facility] Hemoglobin [Mass/volume] in Bloodon 03-26-2024 Hemoglobin (Bld) [Mass/Vol] 12.7 g/dL 12.0-16.0 [facility] Laboratory - Chemistry and C hemistry - challengeon 03-26-2024 Calcium [Mass/Vol] 9.1 mg/dL 8.5-10.1 [facility] Chloride [Moles/Vol] 102 mmol/L 98-107 [facility] CO2 [Moles/Vol] 28.5 mmol/L 21.0-32.0 [facility] Creatinine [Mass/Vol] 1.14 mg/dL High 0.55-1.02 [facility] Free T4 [Mass/Vol] 1.29 ng/dL 0.76-1.46 [facility] GFR/1.73 sq M.predicted MDRD (S/P/Bld) [Vol rate/Area] 56 mL/min/{1.73_m2} Low >=60 [facility] Glucose [Mass/Vol] 246 mg/dL High 74-106 [facility] Natriuretic peptide B (Bld) [Mass/Vol] 2890.0 pg/mL High <=1800.0 [facility] Comment on above: RESULTS CALLED TO YOEL ROBIN RN @BY Alla Kunz 0556 Potassium [Moles/Vol] 4.3 mmol/L 3.5-5.1 [facility] Sodium [Moles/Vol] 136 mmol/L 136-145 [facility] TSH Qn 6.001 m[IU]/L High 0.358-3.740 [facility] Urea nitrogen [Mass/Vol] 35.0 mg/dL High 7.0-18.0 [facility] Urea nitrogen/Creatinine [Mass ratio] 30.7 mg/mg [facility] Laboratory - Hematology and Cell countson 03-26-2024 HbA1c (Bld) [Mass fraction] 11.2 % High 4.5-6.2 [facility] Comment on above: ADA RECOMMENDED LIMI T 4.0 - 6.0ADA THERAPEUTIC TARGET < 7.0ACTION SUGGESTED> 7.0 Immature granulocytes/100 WBC (Bld) 0.2 % 0.0-0.5 [facility] Leukocytes [#/volume] correc gali for nucleated erythrocytes in Blood by Automated counon 03-26-2024 WBC corrected for nucl RBC Auto (Bld) [#/Vol] 8.3 10 3/uL 4.0-11.0 [facility] Lymphocytes Auto (Bld) [#/Vo l]on 03-26-2024 Lymphocytes (Bld) [#/Vol] 1.4 10 3/uL 1.2-3.8 [facility] Lymphocytes/100 WBC Auto (Bl d)on 03-26-2024 Lymphocytes/100 WBC (Bld) 16.5 % Low 20.5-60.0 [facility] MCH Auto (RBC) [Entitic mass ]on 03-26-2024 MCH (RBC) [Entitic mass] 29.1 pg 26.7-34.0 [facility] MCHC Auto (RBC) [Mass/Vol]on 03-26-2024 MCHC (RBC) [Mass/Vol] 31.7 g/dL 29.9-35.2 [facility] MCV Auto (RBC) [Entitic vol] on 03-26-2024 MCV (RBC) [Entitic vol] 92.0 fL 81.0-99.0 [facility] Monocytes Auto (Bld) [#/Vol] on 03-26-2024 Monocytes (Bld) [#/Vol] 0.7 10 3/uL 0.3-0.8 [facility] Monocytes/100 WBC Auto (Bld) on 03-26-2024 Monocytes/100 WBC (Bld) 7.9 % 1.7-12.0 [facility] Neutrophils Auto (Bld) [#/Vo l]on 03-26-2024 Neutrophils (Bld) [#/Vol] 6.1 10 3/uL 1.4-6.5 [facility] Neutrophils/100 WBC Auto (Bl d)on 03-26-2024 Neutrophils/100 WBC (Bld) 73.4 % 43.0-75.0 [facility] No Panel Informationon 03-26 Eosinophils # (Auto) 0.1 10 3/uL 0.0-0.7 [facility] Immature Granulocyte # (Auto) 0.02 10 3/uL 0.00-0.03 [facility] Troponin I High Sensitivity 12.4 pg/mL 4.0-51.3 [facility] Comment on above: CUT-OFF POINTS [...] DIAGNOSTIC AND CLINICAL INFORMATION. 1.29 ng/dL 0.76-1.46 [facility] 6.001 u[iU]/mL High 0.358-3.740 [facility] 2890.0 pg/mL High <=1800.0 [facility] 12.4 pg/mL 4.0-51.3 [facility] 11.2 % High 4.5-6.2 [facility] 30.7 [facility] 35.0 mg/dL High 7.0-18.0 [facility] 0.1 10 3/uL 0.0-0.7 [facility] 9.1 mg/dL 8.5-10.1 [facility] 102 mmol/L 98-107 [facility] 28.5 mmol/L 21.0-32.0 [facility] 1.14 mg/dL High 0.55-1.02 [facility] 0.02 10 3/uL 0.00-0.03 [facility] 56 Low >=60 [facility] 0.2 % 0.0-0.5 [facility] 246 mg/dL High 74-106 [facility] 4.3 mmol/L 3.5-5.1 [facility] 136 mmol/L 136-145 [facility] Platelet mean volume Auto (B ld) [Entitic vol]on 03-26-2024 Platelet mean volume (Bld) [Entitic vol] 10.8 fL 9.5-13.5 [facility] Platelets Auto (Bld) [#/Vol] on 03-26-2024 Platelets (Bld) [#/Vol] 225 10 3/uL 150-450 [facility] RBC Auto (Bld) [#/Vol]on RBC (Bld) [#/Vol] 4.36 10 6/uL 4.20-5.40 [facility] Serum or plasma anion gap de terminationon 03-26-2024 Anion gap [Moles/Vol] 9.8 mmol/L [facility] MR cervical spine wo conon 0 03-13-2024 MR cervical spine wo con [facility] [place] [address] MRI Report Signed Patient: Joe Call MR#: [id number] 0 : 1945 Acct:[id number] Age/Sex: 78 / F ADM Date: 03/13/24 Loc: [facility] Room: Type: [facility] Attending Dr: [...] Jarred Randolph M.D.03/13/2024 3:47 PM Dictation Location: [place] [address] Transcribed By: [facility] 03/13/24 154 Dictated By: Jarred Randolph DO 03/13/24 154 Signed By: 03/13/24 154 Normal [facility] XR pre/post mri xrayon 03-13 XR pre/post mri xray [facility] [place] [address] MRI Report Signed Patient: Joe Call MR#: [id number] 0 : 1945 Acct:[id number] Age/Sex: 78 / F ADM Date: 03/13/24 Loc: [facility] Room: Type: [facility] Attending Dr: Eloina Hussein MD Copies to: Eloina Mullins MD Ordering Provider: Eloina Mullins MD Date of Service: 03/13/24 MR/MR lumbar spine wo con: M54.50 ([id number]) XR/XR pre/post mri xray: M54.50 MRI Lumbar [...] Jarred Randolph M.D.03/13/2024 3:58 PM Dictation Location: [place] [address] Transcribed By: [facility] 03/13/24 1558 Dictated By: Jarred Randolph DO 03/13/24 1551 Signed By: 03/13/24 1558 Normal [facility] Office Visiton 03-07-2024 Follow-up visit [id number] Joe Call 1945 F Date Provider Department Center 03/07/2024 RICA DEAN [facility] Family History Problem Relation Age of Onset Coronary artery disease Other Diabetes Other Polycystic kidney disease Other Family Status - Relation Status Age at Other Level of Service:18829 MI OFFICE/OUTPATIENT ESTABLISHED MOD MDM 30 MIN Reason for Visit and Comments: Follow-up [109190] - 6 month Normal [facility] GI PANEL (PCR)on 03-06-2023 Adenovirus F 40/41 Not detected Normal NOT DETECTED [facility] Comment on above: Performed By: #### P OCGLUC #### [facility] [address] [place] [address] Dr. Kasia Nath Astrovirus Not detected Normal NOT DETECTED [facility] Comment on above: Performed By: #### P OCGLUC #### [facility] [address] [place] [address] Dr. Kasia Nath C. Diff toxin A/B Detected Critically abnormal NOT DETECTED [facility] Comment on above: Performed By: #### P OCGLUC #### [facility] [address] [place] [address] Dr. Kasia Nath Campylobacter Detected Critically abnormal NOT DETECTED [facility] Comment on above: Performed By: #### P OCGLUC #### [facility] [address] [place] [address] Dr. Kasia Nath Cryptosporidium Not detected Normal NOT DETECTED [facility] Comment on above: Performed By: #### P OCGLUC #### [facility] [address] [place] [address] Dr. Kasia Nath Cyclos. Cayetanensis Not detected Normal NOT DETECTED [facility] Comment on above: Performed By: #### P OCGLUC #### [facility] [address] [place] [address] Dr. Kasia Nath E. Coli O157 Not Applicable Normal Not Applicable [facility] Comment on above: Performed By: #### P OCGLUC #### [facility] [address] [place] [address] Dr. Kasia Nath E. histolytica Not detected Normal NOT DETECTED [facility] Comment on above: Performed By: #### P OCGLUC #### [facility] [address] [place] [address] Dr. Kasia Nath EAEC Not detected Normal NOT DETECTED [facility] Comment on above: Performed By: #### P OCGLUC #### [facility] [address] [place] [address] Dr. Kasia Nath EIEC Not detected Normal NOT DETECTED [facility] Comment on above: Performed By: #### P OCGLUC #### [facility] [address] [place] [address] Dr. Kasia Nath EPEC Not detected Normal NOT DETECTED [facility] Comment on above: Performed By: #### P OCGLUC #### [facility] [address] [place] [address] [address] Kasia Nath ETEC Not detected Normal NOT DETECTED [facility] Comment on above: Performed By: #### P OCGLUC #### [facility] [address] [place] [address] [address] Kasia Nath G. Lamblia Not detected Normal NOT DETECTED [facility] Comment on above: Performed By: #### P OCGLUC #### [facility] [address] [place] [address] [address] Kasia KHAN CONTROLS PASSED Normal [facility] Comment on above: Performed By: #### P OCGLUC #### [facility] [address] [place] [address] Dr. Kasia FRAIRE HEADER GI PANEL BACTERIA Normal T [facility] Comment on above: Performed By: #### P OCGLUC #### [facility] [address] [place] [address] [address] Kasia GE ECOLI GI PANEL DIARRHEAGEN IC E.COLI / SHIGELLA Normal [facility] Comment on above: Performed By: #### P OCGLUC #### [facility] [address] [place] [address] Dr. Kasia GE INFO SEE BELOW Normal [facility] Comment on above: Result Comment: EAEC - Enteroaggregative E. Coli EPEC- Enteropathogenic E. Coli ETEC- Enterotoxigenic E. Coli lt/st STEC- Shigella-like toxin-producing E. Coli stx1/stx2 EIEC- Shigella/Enteroinvasive E. Coli Performed By: #### P OCGLUC #### [facility] [address] [place] [address] [address] Kasia GE PARASITES GI PANEL PARASITES Normal [facility] Comment on above: Performed By: #### P OCGLUC #### [facility] [address] [place] [address] [address] Yilan Nath GIPNLHD VIRUS GI PANEL VIRUSES Normal [facility] Comment on above: Performed By: #### P OCGLUC #### [facility] [address] [place] [address] Dr. Kasia Nath Norovirus GI/GII Not detected Normal NOT DETECTED [facility] Comment on above: Performed By: #### P OCGLUC #### [facility] [address] [place] [address] Dr. Kasia Nath P. Shigelloides Not detected Normal NOT DETECTED [facility] Comment on above: Performed By: #### P OCGLUC #### [facility] [address] [place] [address] Dr. Kasia Nath Rotavirus A Not detected Normal NOT DETECTED [facility] Comment on above: Performed By: #### P OCGLUC #### [facility] [address] [place] [address] Dr. Kasia Nath Salmonella Not detected Normal NOT DETECTED [facility] Comment on above: Performed By: #### P OCGLUC #### [facility] [address] [place] [address] Dr. Kasia Nath Sapovirus Not detected Normal NOT DETECTED [facility] Comment on above: Performed By: #### P OCGLUC #### [facility] [address] [place] [address] Dr. Kasia Nath STEC Not detected Normal NOT DETECTED [facility] Comment on above: Performed By: #### P OCGLUC #### [facility] [address] [place] [address] Dr. Kasia Nath Vibrio Not detected Normal NOT DETECTED [facility] Comment on above: Performed By: #### P OCGLUC #### [facility] [address] [place] [address] Dr. Kasia Nath Vibrio Cholera Not detected Normal NOT DETECTED [facility] Comment on above: Performed By: #### P OCGLUC #### [facility] [address] [place] [address] Dr. Kasia Nath Y. Enterocolitica Not detected Normal NOT DETECTED [facility] Comment on above: Performed By: #### P OCGLUC #### [facility] [address] [place] [address] Dr. Kasia Nath CBC AUTO DIFFon 02-14-2023 BASO # 0.0 103/ul Normal 0.0-0.1 [facility] Comment on above: Performed By: #### P OCGLUC #### [facility] [address] [place] [address] Dr. Kasia Nath Basophils/100 WBC (Bld) 0.5 % Normal 0.2-2.[address] [facility] Comment on above: Performed By: #### P OCGLUC #### [facility] [address] [place] [address] Dr. Kasia Nath EO # 0.2 103/ul Normal 0.0-0.[address] [facility] Comment on above: Performed By: #### P OCGLUC #### [facility] [address] [place] [address] Dr. Kasia Nath Eosinophils/100 WBC (Bld) 2.7 % Normal 0.9-7.0 [facility] Comment on above: Performed By: #### P OCGLUC #### [facility] [address] [place] [address] Dr. Kasia Nath Erythrocyte distribution width (RBC) [Ratio] 13.0 % Normal 11.0-15.0 [facility] Comment on above: Performed By: #### P OCGLUC #### [facility] [address] [place] [address] Dr. Kasia Nath Hematocrit (Bld) [Volume fraction] 35.9 % Critically low 36.0-48.0 [facility] Comment on above: Performed By: #### P OCGLUC #### [facility] [address] [place] [address] Dr. Kasia Nath Hemoglobin (Bld) [Mass/Vol] 12.0 g/dL Normal 12.0-16.0 [facility] Comment on above: Performed By: #### P OCGLUC #### [facility] [address] [place] [address] Dr. Kasia Nath IG # 0.02 10e3/ul Normal 0.00-0.[address] [facility] Comment on above: Performed By: #### P OCGLUC #### [facility] [address] [place] [address] [address] Kasia Nath IG % 0.3 % Normal 0.0-0.5 [facility] Comment on above: Performed By: #### P OCGLUC #### [facility] [address] [place] [address] [address] Kasia Nath LYMPH # 1.8 103/ul Normal 1.2-3.8 [facility] Comment on above: Performed By: #### P OCGLUC #### [facility] [address] [place] [address] [address] Kasia Nath Lymphocytes/100 WBC (Bld) 22.8 % Normal 20.5-60.0 [facility] Comment on above: Performed By: #### P OCGLUC #### [facility] [address] [place] [address] Dr. Kasia Nath MANUAL DIFF REQ NO Normal [facility] Comment on above: Performed By: #### P OCGLUC #### [facility] [address] [place] [address] Dr. Kasia Nath MCH (RBC) [Entitic mass] 29.4 pg Normal 26.7-34.0 [facility] Comment on above: Performed By: #### P OCGLUC #### [facility] [address] [place] [address] Dr. Kasia Nath MCHC (RBC) [Mass/Vol] 33.4 g/dL Normal 29.9-35.[address] [facility] Comment on above: Performed By: #### P OCGLUC #### [facility] [address] [place] [address] Dr. Kasia Nath MCV (RBC) [Entitic vol] 88.0 fL Normal 81.0-99.0 [facility] Comment on above: Performed By: #### P OCGLUC #### [facility] [address] [place] [address] Dr. Kasia Nath MONO # 0.7 103/ul Normal 0.3-0.8 [facility] Comment on above: Performed By: #### P OCGLUC #### [facility] [address] [place] [address] [address] Kasia Nath Monocytes/100 WBC (Bld) 9.3 % Normal 1.7-12.0 [facility] Comment on above: Performed By: #### P OCGLUC #### [facility] [address] [place] [address] [address] Kasia Nath NEUT # 5.1 103/ul Normal 1.4-6.5 [facility] Comment on above: Performed By: #### P OCGLUC #### [facility] [address] [place] [address] [address] Kasia Nath Neutrophils/100 WBC (Bld) 64.4 % Normal 43.0-75.0 [facility] Comment on above: Performed By: #### P OCGLUC #### [facility] [address] [place] [address] Dr. Kasia Nath Platelet mean volume (Bld) [Entitic vol] 11.7 fL Normal 9.5-13.5 [facility] Comment on above: Performed By: #### P OCGLUC #### [facility] [address] [place] [address] Dr. Kasia Nath PLT 175 103/ul Normal 150-[address] [facility] Comment on above: Performed By: #### P OCGLUC #### [facility] [address] [place] [address] Dr. Kasia Nath RBC 4.08 106/ul Critically low 4.20-5.40 [facility] Comment on above: Performed By: #### P OCGLUC #### [facility] [address] [place] [address] Dr. Kasia Nath WBC 7.9 103/ul Normal 4.0-11.[address] [facility] Comment on above: Performed By: #### P OCGLUC #### [facility] [address] [place] [address] Dr. Kasia Nath LIPASEon 02-14-2023 Lipase [Catalytic activity/Vol] 51.0 U/L Critically low 73.0-393.0 [facility] Comment on above: Performed By: #### L IPA, CMP ####[facility] [address] [place] [address]Dr. Kasia Nath PROF 14(COMP METB)on 023 Albumin [Mass/Vol] 2.8 g/dL Critically low 3.4-5.0 [facility] Comment on above: Performed By: #### L IPA, CMP ####[facility] [address] [place] [address]Dr. Kasia Nath Albumin/Globulin [Mass ratio] 0.7 {ratio} Normal [facility] Comment on above: Performed By: #### L IPA, CMP ####[facility] [address] [place] [address]Dr. Kasia Nath ALP [Catalytic activity/Vol] 90 U/L Normal 46-116 [facility] Comment on above: Performed By: #### L IPA, CMP ####[facility] [address] [place] [address]Dr. Kasia Nath ALT [Catalytic activity/Vol] 15 U/L Normal 14-59 [facility] Comment on above: Performed By: #### L IPA, CMP ####[facility] [address] [place] [address]Dr. Kasia Nath Anion gap [Moles/Vol] 15.6 mmol/L Normal [facility] Comment on above: Performed By: #### L IPA, CMP ####[facility] [address] [place] [address]Dr. Kasia Nath AST [Catalytic activity/Vol] 9 U/L Critically low 15-37 [facility] Comment on above: Performed By: #### L IPA, CMP ####[facility] [address] [place] [address]Dr. Kasia Nath Bilirubin [Mass/Vol] 0.4 mg/dL Normal 0.2-1.0 [facility] Comment on above: Performed By: #### L IPA, CMP ####[facility] [address] [place] [address]Dr. Kasia Nath Calcium [Mass/Vol] 9.1 mg/dL Normal 8.5-10.1 [facility] Comment on above: Performed By: #### L IPA, CMP ####[facility] [address] [place], [place] [address]Dr. Kasia Nath Chloride [Moles/Vol] 104 mmol/L Normal 98-107 [facility] Comment on above: Performed By: #### L IPA, CMP ####[facility] [facility] [address]uyjw[address]fl[address] [place], [place] [address]Dr. Kasia Nath CO2 [Moles/Vol] 17.0 mmol/L Critically low 21.0-32.0 [facility] Comment on above: Performed By: #### L IPA, CMP ####[facility] Voxosmifbk[address] [place], [place] [address]Dr. Kasia Nath Creatinine [Mass/Vol] 1.78 mg/dL Critically high 0.55-1.02 [facility] Comment on above: Performed By: #### L IPA, CMP ####[facility] I[address]lfz[address]mo[address] [place], [place] [address]Dr. Kasia Nath EGFR-AF KITTITIAN 34 mL/min/1.73m2 Critically low >=60 [facility] Comment on above: Performed By: #### L IPA, CMP ####[facility] Nrhducnbuz[address] [place], [place] [address]Dr. Kasia Nath EGFR-NON AF KITTITIAN 28 mL/min/1.73m2 Critically low >=60 [facility] Comment on above: Performed By: #### L IPA, CMP ####[facility] Rxzpziqnwf[address] [place], [place] [address]Dr. Kasia Nath Globulin (S) [Mass/Vol] 4.3 g/dL Normal [facility] Comment on above: Performed By: #### L IPA, CMP ####[facility] Kipwbkuoni[address] [place], [place] [address]Dr. Kasia Nath Glucose [Mass/Vol] 248 mg/dL Critically high 74-106 T [facility] Comment on above: Performed By: #### L IPA, CMP ####[facility] Gbnwbrhash[address] [place], [place] [address]Dr. Kasia Nath Potassium [Moles/Vol] 4.6 mmol/L Normal 3.5-5.1 [facility] Comment on above: Performed By: #### L IPA, CMP ####[facility] [address]lsbpbwrwz[address] [place], [place] [address]Dr. Kasia Nath Protein [Mass/Vol] 7.1 g/dL Normal 6.4-8.2 [facility] Comment on above: Performed By: #### L IPA, CMP ####[facility] Tkcrzutqel[address] [place], [place] [address]Dr. Kasia Portillo Sodium [Moles/Vol] 132 mmol/L Critically low 136-145 [facility] Comment on above: Performed By: #### L IPA, CMP ####[facility] Z[address]mjjvtli[address] [place], [place] [address]Dr. Kasia Portillo Urea nitrogen [Mass/Vol] 78.0 mg/dL Critically high 7.0-18.0 [facility] Comment on above: Performed By: #### L IPA, CMP ####[facility] Bqehexbrzo[address] [place], [place] [address]Dr. Fartuncristy Nath Urea nitrogen/Creatinine [Mass ratio] 43.8 mg/mg Normal [facility] Comment on above: Performed By: #### L IPA, CMP ####[facility] [address]ob[address]oua[address] [place], [place] [address]Dr. Kasia Portillo CBC AUTO DIFFon 02-13-2023 BASO # 0.0 103/ul Normal 0.0-0.1 [facility] Comment on above: Performed By: #### C BC ####[facility] Pwskbitwdz[address] [place], [place] [address]Dr. Kasia Nath Basophils/100 WBC (Bld) 0.5 % Normal 0.2-2.[address] [facility] Comment on above: Performed By: #### C BC ####[facility] Etirroghhd[address] [place], [place] [address]Dr. Kasia Nath EO # 0.1 103/ul Normal 0.0-0.7 [facility] Comment on above: Performed By: #### C BC ####[facility] [address] [place] [id number]. Kasia Nath Eosinophils/100 WBC (Bld) 1.0 % Normal 0.9-7.[address] [facility] Comment on above: Performed By: #### C BC ####[facility] [address]red[address]zfix[address] [place] [address]Dr. Kasia Nath Erythrocyte distribution width (RBC) [Ratio] 12.8 % Normal 11.0-15.[address] [facility] Comment on above: Performed By: #### C BC ####[facility] Umzninsiwm[address] [place], [place] [address]Dr. Kasia Nath Hematocrit (Bld) [Volume fraction] 38.5 % Normal 36.0-48.[address] [facility] Comment on above: Performed By: #### C BC ####[facility] Pfwqehndqd[address] [place], [place] [address]Dr. Kasia Nath Hemoglobin (Bld) [Mass/Vol] 13.0 g/dL Normal 12.0-16.[address] [facility] Comment on above: Performed By: #### C BC ####[facility] [address] [place] [address]Dr. Kasia Nath IG # 0.02 10e3/ul Normal 0.00-0.[address] [facility] Comment on above: Performed By: #### C BC ####[facility] Qoblojjcjh[address] [place] [address]Dr. Kasia Nath IG % 0.2 % Normal 0.0-0.[address] [facility] Comment on above: Performed By: #### C BC ####[facility] [address]crl[address] [place] [id number]. Kasia Nath LYMPH # 0.9 103/ul Critically low 1.2-3.8 [facility] Comment on above: Performed By: #### C BC ####[facility] Rvyqunmsns[address] [place], [place] [address]Dr. Kasia Nath Lymphocytes/100 WBC (Bld) 10.0 % Critically low 20.5-60.[address] [facility] Comment on above: Performed By: #### C BC ####[facility] [address]nca[address] [place] [id number]. aKsia Nath MANUAL DIFF REQ NO Normal [facility] Comment on above: Performed By: #### C BC ####[facility] [address]ngj[address] [place] [id number]. Kasia Nath MCH (RBC) [Entitic mass] 29.5 pg Normal 26.7-34.[address] [facility] Comment on above: Performed By: #### C BC ####[facility] [address]nezip[address] [place] [address]Dr. Kasia Nath MCHC (RBC) [Mass/Vol] 33.8 g/dL Normal 29.9-35.[address] [facility] Comment on above: Performed By: #### C BC ####[facility] [address]lvxv[address] [place] [id number]. Kasia Nath MCV (RBC) [Entitic vol] 87.5 fL Normal 81.0-99.[address] [facility] Comment on above: Performed By: #### C BC ####[facility] [address]qjmdo[address] [place] [id number]. Kasia Nath MONO # 0.5 103/ul Normal 0.3-0.[address] [facility] Comment on above: Performed By: #### C BC ####[facility] [address] [place] [address]Dr. Kasia Portillo Monocytes/100 WBC (Bld) 5.7 % Normal 1.7-12.[address] [facility] Comment on above: Performed By: #### C BC ####[facility] [address]acan[address] [place] [id number]. Kasia Nath NEUT # 7.2 103/ul Critically high 1.4-6.5 [facility] Comment on above: Performed By: #### C BC ####[facility] Gzqcfewfw[address] [place], [place] [address]Dr. Kasia Portillo Neutrophils/100 WBC (Bld) 82.6 % Critically high 43.0-75.[address] [facility] Comment on above: Performed By: #### C BC ####[facility] [address] [place], [place] [address]We. Kasia Nath Platelet mean volume (Bld) [Entitic vol] 11.8 fL Normal 9.5-13.[address] [facility] Comment on above: Performed By: #### C BC ####[facility] [address]brrpx[address] [place], [place] [address]Wo. Kasia Nath PLT 187 103/ul Normal 150-[address] [facility] Comment on above: Performed By: #### C BC ####[facility] [address]wjjud[address] [place], [place] [address]Wh. Kasia Nath RBC 4.40 106/ul Normal 4.20-5.[address] [facility] Comment on above: Performed By: #### C BC ####[facility] X[address]usamyf3[address] [place], [place] [address]Lg. Kasia Nath WBC 8.8 103/ul Normal 4.0-11.[address] [facility] Comment on above: Performed By: #### C BC ####[facility] Q[address]vfrogcc[address] [place], [place] [address]Dt. [address] Nath CT ABD/PELVIS WO CONon 02-13 [...] JACOB MCCURDY Date: 2023-02-13 14:[address] [facility] CULTURE URINEon 02-13-2023 CULTURE URINE Culture Observations : LIGHT GROWTH OF MIXED GENITAL VON. NO POTENTIAL PATHOGENS SEEN. Normal [facility] Comment on above: Performed By: #### U RCX ####[facility] [address] [place], [place] [address]Dr. Kasia Nath Covid-19 PCR ([facility])on SARS-CoV-2 (COVID-19) RNA FERN+probe Ql (Unsp spec) Not detected Normal NOT DETECTED [facility] Comment on above: Result Comment: When [...] for this test is supported by the [place] of Health and Human Service's declaration that [...] used). Performed By: #### P OCGLUC #### [facility] [address] [place], [place] [address] Dr. Kasia Nath GI PANEL (PCR)on 02-13-2023 Adenovirus F 40/41 Not detected Normal NOT DETECTED [facility] Comment on above: Performed By: #### C BC #### [facility] [address] [place] [address] Dr. Kasia Nath Astrovirus Not detected Normal NOT DETECTED [facility] Comment on above: Performed By: #### C BC #### [facility] [address] [place] [address] Dr. Kasia Del Real. Diff toxin A/B Not detected Normal NOT DETECTED [facility] Comment on above: Performed By: #### C BC #### [facility] [address] [place] [address] Dr. Kasia Nath Campylobacter Not detected Normal NOT DETECTED [facility] Comment on above: Performed By: #### C BC #### [facility] [address] [place] [address] Dr. Kasia Nath Cryptosporidium Not detected Normal NOT DETECTED [facility] Comment on above: Performed By: #### C BC #### [facility] [address] [place] [address] Dr. Kasia Nath Cyclos. Cayetanensis Not detected Normal NOT DETECTED [facility] Comment on above: Performed By: #### C BC #### [facility] [address] [place] [address] Dr. Kasia Nath E. Coli O157 Not Applicable Normal Not Applicable [facility] Comment on above: Performed By: #### C BC #### [facility] [address] [place] [address] Dr. Kasia Nath E. histolytica Not detected Normal NOT DETECTED [facility] Comment on above: Performed By: #### C BC #### [facility] [address] [place] [address] Dr. Kasia Nath EAEC Not detected Normal NOT DETECTED [facility] Comment on above: Performed By: #### C BC #### [facility] [address] [place] [address] Dr. Kasia Nath EIEC Not detected Normal NOT DETECTED [facility] Comment on above: Performed By: #### C BC #### [facility] [address] [place] [address] Dr. Kasia Nath EPEC Not detected Normal NOT DETECTED [facility] Comment on above: Performed By: #### C BC #### [facility] [address] [place] [address] [address] Kasia Nath ETEC Not detected Normal NOT DETECTED [facility] Comment on above: Performed By: #### C BC #### [facility] [address] [place] [address] [address] Kasia Terrazas Lamblia Not detected Normal NOT DETECTED [facility] Comment on above: Performed By: #### C BC #### [facility] [address] [place] [address] [address] Kasia KHAN CONTROLS PASSED Normal [facility] Comment on above: Performed By: #### C BC #### [facility] [address] [place] [address] [address] Kasia FRAIRE HEADER GI PANEL BACTERIA Normal T [facility] Comment on above: Performed By: #### C BC #### [facility] [address] [place] [address] [address] Kasia GE ECOLI GI PANEL DIARRHEAGEN IC E.COLI / SHIGELLA Normal [facility] Comment on above: Performed By: #### C BC #### [facility] [address] [place] [address] Dr. Kasia GE INFO SEE BELOW Normal [facility] Comment on above: Result Comment: EAEC - Enteroaggregative E. Coli EPEC- Enteropathogenic E. Coli ETEC- Enterotoxigenic E. Coli lt/st STEC- Shigella-like toxin-producing E. Coli stx1/stx2 EIEC- Shigella/Enteroinvasive E. Coli Performed By: #### C BC #### [facility] [address] [place] [address] Dr. Kasia GE PARASITES GI PANEL PARASITES Normal [facility] Comment on above: Performed By: #### C BC #### [facility] [address] [place] [address] [address] Kasia GE VIRUS GI PANEL VIRUSES Normal [facility] Comment on above: Performed By: #### C BC #### [facility] [address] [place] [address] Dr. Kasia Nath Norovirus GI/GII Not detected Normal NOT DETECTED [facility] Comment on above: Performed By: #### C BC #### [facility] [address] [place] [address] Dr. Kasia Nath P. Shigelloides Not detected Normal NOT DETECTED [facility] Comment on above: Performed By: #### C BC #### [facility] [address] [place] [address] Dr. Kasia Nath Rotavirus A Not detected Normal NOT DETECTED [facility] Comment on above: Performed By: #### C BC #### [facility] [address] [place] [address] Dr. Kasia Nath Salmonella Not detected Normal NOT DETECTED [facility] Comment on above: Performed By: #### C BC #### [facility] [address] [place] [address] Dr. Kasia Nath Sapovirus Not detected Normal NOT DETECTED [facility] Comment on above: Performed By: #### C BC #### [facility] [address] [place] [address] Dr. Kasia Nath STEC Not detected Normal NOT DETECTED [facility] Comment on above: Performed By: #### C BC #### [facility] [address] [place] [address] Dr. Kasia Nath Vibrio Not detected Normal NOT DETECTED [facility] Comment on above: Performed By: #### C BC #### [facility] [address] [place] [address] Dr. Kasia Nath Vibrio Cholera Not detected Normal NOT DETECTED [facility] Comment on above: Performed By: #### C BC #### [facility] [address] [place] [address] Dr. Kasia Nath Y. Enterocolitica Not detected Normal NOT DETECTED [facility] Comment on above: Performed By: #### C BC #### [facility] [address] [place] [address] Dr. Kasia Nath LACTATE/LACTIC ACIDon 2022 Lactate [Moles/Vol] 1.7 mmol/L Normal 0.4-2.0 [facility] Comment on above: Performed By: #### L ACT ####[facility] [address] [place] [address]Dr. Kasia Nath LIPASEon 02-13-2023 Lipase [Catalytic activity/Vol] 82.0 U/L Normal 73.0-393.0 [facility] Comment on above: Performed By: #### L IPA, CMP #### [facility] [address] [place] [address] [address] Kasia Nath POINT OF CARE GLUCOSEon Glucose [Mass/Vol] 229 mg/dL Critically high 74-106 [facility] Comment on above: Performed By: #### P OCGLUC #### [facility] [address] [place] [address] Dr. Kasia Nath Glucose [Mass/Vol] 474 mg/dL Critically high 74-106 [facility] Comment on above: Performed By: #### P OCGLUC #### [facility] [address] [place] [address] Dr. Kasia Nath PROF 14(COMP METB)on 023 Albumin [Mass/Vol] 3.4 g/dL Normal 3.4-5.0 [facility] Comment on above: Performed By: #### L IPA, CMP #### [facility] [address] [place] [address] Dr. Kasia Nath Albumin/Globulin [Mass ratio] 0.7 {ratio} Normal [facility] Comment on above: Performed By: #### L IPA, CMP #### [facility] [address] [place] [address] Dr. Kasia Nath ALP [Catalytic activity/Vol] 106 U/L Normal 46-116 [facility] Comment on above: Performed By: #### L IPA, CMP #### [facility] [address] [place] [address] Dr. Kasia Nath ALT [Catalytic activity/Vol] 21 U/L Normal 14-59 [facility] Comment on above: Performed By: #### L IPA, CMP #### [facility] [address] [place] [address] [address] Kasia Nath Anion gap [Moles/Vol] 17.7 mmol/L Normal Th [facility] Comment on above: Performed By: #### L IPA, CMP #### [facility] [address] [place] [address] [address] Kasia Nath AST [Catalytic activity/Vol] 11 U/L Critically low 15-37 [facility] Comment on above: Performed By: #### L IPA, CMP #### [facility] [address] [place] [address] [address] Kasia Nath Bilirubin [Mass/Vol] 0.5 mg/dL Normal 0.2-1.0 [facility] Comment on above: Performed By: #### L IPA, CMP #### [facility] [address] [place] [address] [address] Kasia Nath Calcium [Mass/Vol] 9.6 mg/dL Normal 8.5-10.1 [facility] Comment on above: Performed By: #### L IPA, CMP #### [facility] [address] [place] [address] [address] Kasia Nath Chloride [Moles/Vol] 99 mmol/L Normal 98-107 [facility] Comment on above: Performed By: #### L IPA, CMP #### [facility] [address] [place] [address] [address] Kasia Nath CO2 [Moles/Vol] 20.6 mmol/L Critically low 21.0-32.0 [facility] Comment on above: Performed By: #### L IPA, CMP #### [facility] [address] [place] [address] [address] Kasia Nath Creatinine [Mass/Vol] 2.14 mg/dL Critically high 0.55-1.02 [facility] Comment on above: Performed By: #### L IPA, CMP #### [facility] [address] [place] [address] [address] Kasia Nath EGFR-AF KITTITIAN 27 mL/min/1.73m2 Critically low >=60 [facility] Comment on above: Performed By: #### L IPA, CMP #### [facility] [address] [place] [address] [address] Kasia Nath EGFR-NON AF KITTITIAN 22 mL/min/1.73m2 Critically low >=60 [facility] Comment on above: Performed By: #### L IPA, CMP #### [facility] [address] [place] [address] [address] Kasia Nath Globulin (S) [Mass/Vol] 4.8 g/dL Normal [facility] Comment on above: Performed By: #### L IPA, CMP #### [facility] [address] [place] [address] [address] Kasia Nath Glucose [Mass/Vol] 498 mg/dL Critically high 74-106 T [facility] Comment on above: Performed By: #### L IPA, CMP #### [facility] [address] [place] [address] [address] Kasia Nath Potassium [Moles/Vol] 5.3 mmol/L Critically high 3.5-5.1 [facility] Comment on above: Performed By: #### L IPA, CMP #### [facility] [address] [place] [address] [address] Kasia Nath Protein [Mass/Vol] 8.2 g/dL Normal 6.4-8.2 [facility] Comment on above: Performed By: #### L IPA, CMP #### [facility] [address] [place] [address] [address] Kasia Naht Sodium [Moles/Vol] 132 mmol/L Critically low 136-145 Th [facility] Comment on above: Performed By: #### L IPA, CMP #### [facility] [address] [place] [address] [address] Kasia Nath Urea nitrogen [Mass/Vol] 86.0 mg/dL Critically high 7.0-18.0 [facility] Comment on above: Performed By: #### L IPA, CMP #### [facility] [address] [place] [address] [address] Kasia Nath Urea nitrogen/Creatinine [Mass ratio] 40.2 mg/mg Normal [facility] Comment on above: Performed By: #### L IPA, CMP #### [facility] [address] [place] [address] [address] Kasia Nath UA RANDOM W/MICROSCOPICon BACTERIA TRACE Abnormal NONE SEEN [facility] Comment on above: Performed By: #### U AMIC ####[facility] [address] [place] [address]Dr. Kasia Nath Bilirubin Ql (U) Negative Normal NEGATIVE [facility] Comment on above: Performed By: #### U AMIC ####[facility] [address] [place] [address]Dr. Kasia Nath CAST SEEN Abnormal NONE SEEN [facility] Comment on above: Performed By: #### U AMIC ####[facility] [address] [place] [address]Dr. Kasia Nath Clarity (U) CLEAR Normal CLEAR [facility] Comment on above: Performed By: #### U AMIC ####[facility] [address] [place] [address]Dr. Kasia Nath Color (U) LT. YELLOW Normal YELLOW [facility] Comment on above: Performed By: #### U AMIC ####[facility] [address] [place] [address]Dr. Kasia Nath Crystals LM Nom (Urine sed) NONE SEEN Normal NONE SEEN [facility] Comment on above: Performed By: #### U AMIC ####[facility] [address] [place] [address]Dr. Kasia Nath Epithelial cells LM Ql (Urine sed) FEW Abnormal NONE SEEN /RARE [facility] Comment on above: Performed By: #### U AMIC ####[facility] [address] [place] [address]Dr. Kasia Nath Glucose Ql (U) >1000 Abnormal NEGATIVE [facility] Comment on above: Performed By: #### U AMIC ####[facility] [address] [place] [address]Dr. Kasia Nath Hemoglobin Ql (U) Negative Normal NEGATIVE [facility] Comment on above: Performed By: #### U AMIC ####[facility] [address] [place] [address]Dr. Kasia Nath HYALINE CAST RARE Normal [facility] Comment on above: Performed By: #### U AMIC ####[facility] [address] [place] [address]Dr. Kasia Nath Ketones Ql (U) Negative Normal NEGATIVE [facility] Comment on above: Performed By: #### U AMIC ####[facility] [address]yzo[address] [place] [address]Dr. Kasia Nath LEUKOCYTES Negative Normal NEGATIVE [facility] Comment on above: Performed By: #### U AMIC ####[facility] [address] [place] [address]Dr. Kasia Nath MUCOUS NONE SEEN Normal NONE SEEN [facility] Comment on above: Performed By: #### U AMIC ####[facility] [address] [place] [address]Dr. Kasia Nath Nitrite Ql (U) Negative Normal NEGATIVE [facility] Comment on above: Performed By: #### U AMIC ####[facility] [address] [place], [place] [address]Dr. Kasia Nath pH (U) 5.5 [pH] Normal 5-[address] [facility] Comment on above: Performed By: #### U AMIC ####[facility] [address] [place] [address]Dr. Kasia Nath RBC 0-2 Normal 0-[address] [facility] Comment on above: Performed By: #### U AMIC ####[facility] [address] [place] [address]Dr. Kasia Nath SPEC GRAVITY 1.015 Normal 1.005-<=1.[address] [facility] Comment on above: Performed By: #### U AMIC ####[facility] [address]cdu[address] [place] [address]Dr. Kasia Nath UA PROTEIN TRACE Normal NEGATIVE/ TRACE [facility] Comment on above: Performed By: #### U AMIC ####[facility] [address] [place] [address]Dr. Kasia Nath Urobilinogen Qn (U) 0.2 {Meka'U}/dL Normal 0.2 - 1. 0 [facility] Comment on above: Performed By: #### U AMIC ####[facility] [address]mpoqi[address] [place] [address]Dr. Kasia Nath WBC 0-2 Abnormal NONE SEEN [facility] Comment on above: Performed By: #### U AMIC ####[facility] [address]fhbgrbx[address] [place] [address]Dr. Kasia Nath BNPon 01-16-2023 Natriuretic peptide B (Bld) [Mass/Vol] 1675.0 pg/mL Normal <=1,800.0 [facility] Comment on above: Performed By: #### [employer] ARTISTIC DIRECTOR, CMP ####[facility] Qlodxifanb[address] [place], [place] [address]Dr. Kasia Nath PROF 14(COMP METB)on 023 Albumin [Mass/Vol] 3.4 g/dL Normal 3.4-5.0 [facility] Comment on above: Performed By: #### [employer] ARTISTIC DIRECTOR, CMP ####[facility] Qsefjmwwum[address] [place], [place] [address]Dr. Kasia Nath Albumin/Globulin [Mass ratio] 0.8 {ratio} Normal [facility] Comment on above: Performed By: #### [employer] ARTISTIC DIRECTOR, CMP ####[facility] [address]ls[address] [place], [place] [address]Dr. Kasia Nath ALP [Catalytic activity/Vol] 99 U/L Normal 46-[address] [facility] Comment on above: Performed By: #### [employer] ARTISTIC DIRECTOR, CMP ####[facility] [address] [place], [place] [address]Dr. Kasia Nath ALT [Catalytic activity/Vol] 18 U/L Normal 14-59 [facility] Comment on above: Performed By: #### [employer] ARTISTIC DIRECTOR, CMP ####[facility] [address] [place], [place] [address]Dr. Kasia Nath Anion gap [Moles/Vol] 10.6 mmol/L Normal [facility] Comment on above: Performed By: #### [employer] ARTISTIC DIRECTOR, CMP ####[facility] [address] [place], [place] [address]Dr. Kasia Portillo AST [Catalytic activity/Vol] 15 U/L Normal 15-37 [facility] Comment on above: Performed By: #### [employer] ARTISTIC DIRECTOR, CMP ####[facility] [address] [place], [place] [address]Dr. Fartuncristy Portillo Bilirubin [Mass/Vol] 0.5 mg/dL Normal 0.2-1.0 [facility] Comment on above: Performed By: #### [employer] ARTISTIC DIRECTOR, CMP ####[facility] [address] [place], [place] [address]Dr. Kasia Nath Calcium [Mass/Vol] 9.1 mg/dL Normal 8.5-10.1 [facility] Comment on above: Performed By: #### [employer] ARTISTIC DIRECTOR, CMP ####[facility] [address] [place], [place] [address]Dr. Kasia Nath Chloride [Moles/Vol] 98 mmol/L Normal 98-107 [facility] Comment on above: Performed By: #### [employer] ARTISTIC DIRECTOR, CMP ####[facility] [address] [place], [place] [address]Dr. Kasia Nath CO2 [Moles/Vol] 30.4 mmol/L Normal 21.0-32.0 [facility] Comment on above: Performed By: #### [employer] ARTISTIC DIRECTOR, CMP ####[facility] [address] [place], [place] [address]Dr. Kasia Nath Creatinine [Mass/Vol] 1.44 mg/dL Critically high 0.55-1.02 [facility] Comment on above: Performed By: #### [employer] ARTISTIC DIRECTOR, CMP ####[facility] [address] [place], [place] [address]Dr. Kasia Nath EGFR-AF KITTITIAN 43 mL/min/1.73m2 Critically low >=[address] [facility] Comment on above: Performed By: #### [employer] ARTISTIC DIRECTOR, CMP ####[facility] Afnty[address] [place], [place] [address]Dr. Kasia Nath EGFR-NON AF KITTITIAN 35 mL/min/1.73m2 Critically low >=60 [facility] Comment on above: Performed By: #### [employer] ARTISTIC DIRECTOR, CMP ####[facility] [address] [place] [address]Dr. Kasia Nath Globulin (S) [Mass/Vol] 4.4 g/dL Normal [facility] Comment on above: Performed By: #### [employer] ARTISTIC DIRECTOR, CMP ####[facility] [address] [place], [place] [address]Dr. Kasia Nath Glucose [Mass/Vol] 401 mg/dL Critically high 74-106 [facility] Comment on above: Performed By: #### [employer] ARTISTIC DIRECTOR, CMP ####[facility] [address]fw[address] [place], [place] [address]Dr. Kasia Nath Potassium [Moles/Vol] 5.0 mmol/L Normal 3.5-5.1 [facility] Comment on above: Performed By: #### [employer] ARTISTIC DIRECTOR, CMP ####[facility] [address] [place], [place] [address]Dr. Kasia Nath Protein [Mass/Vol] 7.8 g/dL Normal 6.4-8.2 [facility] Comment on above: Performed By: #### [employer] ARTISTIC DIRECTOR, CMP ####[facility] [address] [place], [place] [address]Dr. Kasia Nath Sodium [Moles/Vol] 134 mmol/L Critically low 136-145 [facility] Comment on above: Performed By: #### [employer] ARTISTIC DIRECTOR, CMP ####[facility] [address] [place], [place] [address]Dr. Kasia Nath Urea nitrogen [Mass/Vol] 46.0 mg/dL Critically high 7.0-18.0 [facility] Comment on above: Performed By: #### [employer] ARTISTIC DIRECTOR, CMP ####[facility] [address] [place], [place] [address]Dr. Kasia Nath Urea nitrogen/Creatinine [Mass ratio] 31.9 mg/mg Normal [facility] Comment on above: Performed By: #### [employer] ARTISTIC DIRECTOR, CMP ####[facility] [address] [place] [id number]. Kasia Nath BNPon 01-05-2023 Natriuretic peptide B (Bld) [Mass/Vol] 1389.0 pg/mL Normal <=1,800.0 [facility] Comment on above: Performed By: #### [employer] ARTISTIC DIRECTOR, CMADM, CMP ####[facility] [address] [place] [address]Dr. Kasia Nath CARDIAC EMERY ADMITon 023 CK [Catalytic activity/Vol] 138 U/L Normal 26-[address] [facility] Comment on above: Performed By: #### [employer] ARTISTIC DIRECTOR, CMADM, CMP ####[facility] [address] [place] [address]Dr. Kasia Nath CK.MB [Mass/Vol] 2.22 ng/mL Normal <=3.60 [facility] Comment on above: Performed By: #### [employer] ARTISTIC DIRECTOR, CMADM, CMP ####[facility] [address] [place] [address]Dr. Kasia Nath HSTROP 15.9 pg/mL Normal 4.0-51.[address] [facility] Comment on above: Result Comment: CUT- OFF POINTS HAVE BEEN ESTABLISHED BASED ON THE FOURTH UNIVERSAL DEFINITIONS OF MYOCARDIAL INFARCTION. THE UPPER REFERENCE LIMIT (URL) OF TROPONIN, DEFINED THE 99TH PERCENTILE OF cTnI DISTRIBUTION IN A REFERENCE POPULATION, HAS BEEN CONFIRMED THE DECISION THRESHOLD FOR SD DIAGNOSIS. Performed By: #### [employer] ARTISTIC DIRECTOR, CMADM, CMP ####[facility] [address] [place] [address]DrDoreen Nath RGETTA 178 ng/mL Critically high 9-82 [facility] Comment on above: Performed By: #### [employer] ARTISTIC DIRECTOR, CMADM, CMP ####[facility] [address] [place] [id number]. Kasia Nath CBC AUTO DIFFon 01-05-2023 BASO # 0.1 103/ul Normal 0.0-0.1 [facility] Comment on above: Performed By: #### C BC #### [facility] [id number] Kasia Nath Basophils/100 WBC (Bld) 0.7 % Normal 0.2-2.0 [facility] Comment on above: Performed By: #### C BC #### [facility] [address] [place] [address] Dr. Kasia Nath EO # 0.3 103/ul Normal 0.0-0.7 [facility] Comment on above: Performed By: #### C BC #### [facility] [address] [place] [address] Dr. Kasia Nath Eosinophils/100 WBC (Bld) 2.9 % Normal 0.9-7.0 [facility] Comment on above: Performed By: #### C BC #### [facility] [address] [place] [address] Dr. Kasia Nath Erythrocyte distribution width (RBC) [Ratio] 13.5 % Normal 11.0-15.0 [facility] Comment on above: Performed By: #### C BC #### [facility] [address] [place] [address] Dr. Kasia Nath Hematocrit (Bld) [Volume fraction] 39.8 % Normal 36.0-48.0 [facility] Comment on above: Performed By: #### C BC #### [facility] [address] [place] [address] Dr. Kasia Nath Hemoglobin (Bld) [Mass/Vol] 13.5 g/dL Normal 12.0-16.0 [facility] Comment on above: Performed By: #### C BC #### [facility] [address] [place] [address] Dr. Kasia Nath IG # 0.02 10e3/ul Normal 0.00-0.[address] [facility] Comment on above: Performed By: #### C BC #### [facility] [address] [place] [address] Dr. Kasia Nath IG % 0.2 % Normal 0.0-0.5 [facility] Comment on above: Performed By: #### C BC #### [facility] [address] [place] [address] Dr. Kasia Nath LYMPH # 1.9 103/ul Normal 1.2-3.8 [facility] Comment on above: Performed By: #### C BC #### [facility] [address] [place] [address] Dr. Kasia Nath Lymphocytes/100 WBC (Bld) 22.0 % Normal 20.5-60.0 [facility] Comment on above: Performed By: #### C BC #### [facility] [address] [place] [address] Dr. Kasia Nath MANUAL DIFF REQ NO Normal [facility] Comment on above: Performed By: #### C BC #### [facility] [address] [place] [address] Dr. Kasia Nath MCH (RBC) [Entitic mass] 29.8 pg Normal 26.7-34.0 [facility] Comment on above: Performed By: #### C BC #### [facility] [address] [place] [address] Dr. Kasia Nath MCHC (RBC) [Mass/Vol] 33.9 g/dL Normal 29.9-35.2 [facility] Comment on above: Performed By: #### C BC #### [facility] [address] [place] [address] Dr. Kasia Nath MCV (RBC) [Entitic vol] 87.9 fL Normal 81.0-99.0 [facility] Comment on above: Performed By: #### C BC #### [facility] [address] [place] [address] Dr. Kasia Nath MONO # 0.8 103/ul Normal 0.3-0.8 [facility] Comment on above: Performed By: #### C BC #### [facility] [address] [place] [address] Dr. Kasia Nath Monocytes/100 WBC (Bld) 8.8 % Normal 1.7-12.0 [facility] Comment on above: Performed By: #### C BC #### [facility] [address] [place] [address] Dr. Kasia Nath NEUT # 5.6 103/ul Normal 1.4-6.[address] [facility] Comment on above: Performed By: #### C BC #### [facility] [address] [address] [address] Kasia Nath Neutrophils/100 WBC (Bld) 65.4 % Normal 43.0-75.0 [facility] Comment on above: Performed By: #### C BC #### [facility] [address] [address] [address] Kasia Nath Platelet mean volume (Bld) [Entitic vol] 10.6 fL Normal 9.5-13.5 [facility] Comment on above: Performed By: #### C BC #### [facility] [address] [address] [address] Kasia Nath PLT 222 103/ul Normal 150-450 [facility] Comment on above: Performed By: #### C BC #### [facility] [address] [address] [address] Kasia Nath RBC 4.53 106/ul Normal 4.20-5.40 [facility] Comment on above: Performed By: #### C BC #### [facility] [address] [address] [address] Kasia Nath WBC 8.6 103/ul Normal 4.0-11.0 [facility] Comment on above: Performed By: #### C BC #### [facility] [address] [place] [address] Dr. Kasia Nath PROF 14(COMP METB)on 023 Albumin [Mass/Vol] 3.3 g/dL Critically low 3.4-5.0 [facility] Comment on above: Performed By: #### [employer] ARTISTIC DIRECTOR, CMADM, CMP #### [facility] [address] [address] [address] Kasia Nath Albumin/Globulin [Mass ratio] 0.7 {ratio} Normal [facility] Comment on above: Performed By: #### [employer] ARTISTIC DIRECTOR, CMADM, CMP #### [facility] [address] [address] [address] Kasia Nath ALP [Catalytic activity/Vol] 106 U/L Normal 46-116 [facility] Comment on above: Performed By: #### [employer] ARTISTIC DIRECTOR, CMADM, CMP #### [facility] [address] [address] [address] Kaisa Nath ALT [Catalytic activity/Vol] 22 U/L Normal 14-59 [facility] Comment on above: Performed By: #### [employer] ARTISTIC DIRECTOR, CMADM, CMP #### [facility] [address] [address] [address] Kasia Nath Anion gap [Moles/Vol] 12.0 mmol/L Normal [facility] Comment on above: Performed By: #### [employer] ARTISTIC DIRECTOR, CMADM, CMP #### [facility] [address] [place] [address] Dr. Kasia Nath AST [Catalytic activity/Vol] 23 U/L Normal 15-37 [facility] Comment on above: Performed By: #### [employer] ARTISTIC DIRECTOR, CMADM, CMP #### [facility] [address] [place] [address] Dr. Kasia Nath Bilirubin [Mass/Vol] 0.7 mg/dL Normal 0.2-1.0 [facility] Comment on above: Performed By: #### [employer] ARTISTIC DIRECTOR, CMADM, CMP #### [facility] [address] [place] [address] Dr. Kasia Nath Calcium [Mass/Vol] 8.8 mg/dL Normal 8.5-10.1 [facility] Comment on above: Performed By: #### [employer] ARTISTIC DIRECTOR, CMADM, CMP #### [facility] [address] [address] [address] Kasia Nath Chloride [Moles/Vol] 98 mmol/L Normal 98-107 [facility] Comment on above: Performed By: #### [employer] ARTISTIC DIRECTOR, CMADM, CMP #### [facility] [address] [place] [address] Dr. Kasia Nath CO2 [Moles/Vol] 30.2 mmol/L Normal 21.0-32.0 [facility] Comment on above: Performed By: #### [employer] ARTISTIC DIRECTOR, CMADM, CMP #### [facility] [address] [place] [address] Dr. Kasia Nath Creatinine [Mass/Vol] 1.19 mg/dL Critically high 0.55-1.02 [facility] Comment on above: Performed By: #### [employer] ARTISTIC DIRECTOR, MACDM, CMP #### [facility] [address] [address] [address] Kasia Nath EGFR-AF KITTITIAN 53 mL/min/1.73m2 Critically low >=60 [facility] Comment on above: Performed By: #### [employer] ARTISTIC DIRECTOR, CMADM, CMP #### [facility] [address] [place] [address] Dr. Kasia Nath EGFR-NON AF KITTITIAN 44 mL/min/1.73m2 Critically low >=60 [facility] Comment on above: Performed By: #### [employer] ARTISTIC DIRECTOR, CMADM, CMP #### [facility] [address] [place] [address] Dr. Kasia Nath Globulin (S) [Mass/Vol] 4.7 g/dL Normal [facility] Comment on above: Performed By: #### [employer] ARTISTIC DIRECTOR, CMADM, CMP #### [facility] [address] [place] [address] Dr. Kasia Nath Glucose [Mass/Vol] 124 mg/dL Critically high 74-106 [facility] Comment on above: Performed By: #### [employer] ARTISTIC DIRECTOR, MACDM, CMP #### [facility] [address] [place] [address] Dr. Kasia Nath Potassium [Moles/Vol] 3.2 mmol/L Critically low 3.5-5.1 [facility] Comment on above: Performed By: #### [employer] ARTISTIC DIRECTOR, CMADM, CMP #### [facility] [address] [place] [address] Dr. Kasia Nath Protein [Mass/Vol] 8.0 g/dL Normal 6.4-8.2 [facility] Comment on above: Performed By: #### [employer] ARTISTIC DIRECTOR, CMADM, CMP #### [facility] [address] [place] [address] Dr. Kasia Nath Sodium [Moles/Vol] 137 mmol/L Normal 136-145 [facility] Comment on above: Performed By: #### [employer] ARTISTIC DIRECTOR, CMADM, CMP #### [facility] [address] [place], [place] [address] Dr. Kasia Nath Urea nitrogen [Mass/Vol] 29.0 mg/dL Critically high 7.0-18.0 [facility] Comment on above: Performed By: #### [employer] ARTISTIC DIRECTOR, CMADM, CMP #### [facility] [address] [place], [place] [address] Dr. Kasia Nath Urea nitrogen/Creatinine [Mass ratio] 24.4 mg/mg Normal [facility] Comment on above: Performed By: #### [employer] ARTISTIC DIRECTOR, CMADM, CMP #### [facility] [address] [place], [place] [address] Dr. Kasia Nath TROPONIN, HIGH SENSITIVITYon 01-05-2023 HSTROP 18.4 pg/mL Normal 4.0-51.3 [facility] Comment on above: Result Comment: CUT- OFF POINTS HAVE BEEN ESTABLISHED BASED ON THE FOURTH UNIVERSAL DEFINITIONS OF MYOCARDIAL INFARCTION. THE UPPER REFERENCE LIMIT (URL) OF TROPONIN, DEFINED THE 99TH PERCENTILE OF cTnI DISTRIBUTION IN A REFERENCE POPULATION, HAS BEEN CONFIRMED THE DECISION THRESHOLD FOR SD DIAGNOSIS. Performed By: #### H STROPN ####[facility] [address] [place], [place] [address]JdDr. Kasia Nath XR CHEST 1 Von 01-05-2023 [...] BIN ROJAS Date: 2023-01-05 04:[address] [facility] BNPon 01-02-2023 Natriuretic peptide B (Bld) [Mass/Vol] 2583.0 pg/mL Critically high <=1,800.[address] [facility] Comment on above: Performed By: #### [employer] ARTISTIC DIRECTOR, CMP ####[facility] [address] [place], [place] [address]FwDr. Kasia Nath CBC AUTO DIFFon 01-02-2023 BASO # 0.1 103/ul Normal 0.0-0.1 [facility] Comment on above: Performed By: #### P OCGLUC #### [facility] [address] [address] [address] Kasia Nath Basophils/100 WBC (Bld) 0.9 % Normal 0.2-2.0 [facility] Comment on above: Performed By: #### P OCGLUC #### [facility] [address] [address] [address] Kasia Nath EO # 0.2 103/ul Normal 0.0-0.[address] [facility] Comment on above: Performed By: #### P OCGLUC #### [facility] [address] [address] [address] Kasia Nath Eosinophils/100 WBC (Bld) 2.3 % Normal 0.9-7.0 [facility] Comment on above: Performed By: #### P OCGLUC #### [facility] [address] [address] [address] Kasia Nath Erythrocyte distribution width (RBC) [Ratio] 13.8 % Normal 11.0-15.[address] [facility] Comment on above: Performed By: #### P OCGLUC #### [facility] [address] [address] [address] Kasia Nath Hematocrit (Bld) [Volume fraction] 35.5 % Critically low 36.0-48.0 [facility] Comment on above: Performed By: #### P OCGLUC #### [facility] [address] [address] [address] Kasia Nath Hemoglobin (Bld) [Mass/Vol] 11.6 g/dL Critically low 12.0-16.0 [facility] Comment on above: Performed By: #### P OCGLUC #### [facility] [address] [address] [address] Kasia Nath IG # 0.02 10e3/ul Normal 0.00-0.03 [facility] Comment on above: Performed By: #### P OCGLUC #### [facility] [address] [address] [address] Kasia Nath IG % 0.3 % Normal 0.0-0.5 [facility] Comment on above: Performed By: #### P OCGLUC #### [facility] [address] [address] [address] Kasia Nath LYMPH # 2.0 103/ul Normal 1.2-3.8 [facility] Comment on above: Performed By: #### P OCGLUC #### [facility] [address] [place] [address] Dr. Kasia Nath Lymphocytes/100 WBC (Bld) 24.8 % Normal 20.5-60.0 [facility] Comment on above: Performed By: #### P OCGLUC #### [facility] [address] [address] [address] Kasia Nath MANUAL DIFF REQ NO Normal [facility] Comment on above: Performed By: #### P OCGLUC #### [facility] [address] [address] [address] Kasia Nath MCH (RBC) [Entitic mass] 28.7 pg Normal 26.7-34.0 [facility] Comment on above: Performed By: #### P OCGLUC #### [facility] [address] [address] [address] Kasia Nath MCHC (RBC) [Mass/Vol] 32.7 g/dL Normal 29.9-35.2 [facility] Comment on above: Performed By: #### P OCGLUC #### [facility] [address] [place] [address] Dr. Kasia Nath MCV (RBC) [Entitic vol] 87.9 fL Normal 81.0-99.0 [facility] Comment on above: Performed By: #### P OCGLUC #### [facility] [address] [address] [address] Kasia Nath MONO # 0.8 103/ul Normal 0.3-0.8 [facility] Comment on above: Performed By: #### P OCGLUC #### [facility] [address] [address] [address] Kasia Nath Monocytes/100 WBC (Bld) 9.6 % Normal 1.7-12.0 [facility] Comment on above: Performed By: #### P OCGLUC #### [facility] [address] [address] [address] Kasia Nath NEUT # 5.0 103/ul Normal 1.4-6.5 [facility] Comment on above: Performed By: #### P OCGLUC #### [facility] [address] [address] [address] Kasia Nath Neutrophils/100 WBC (Bld) 62.1 % Normal 43.0-75.0 [facility] Comment on above: Performed By: #### P OCGLUC #### [facility] [address] [address] [address] Kasia Nath Platelet mean volume (Bld) [Entitic vol] 10.7 fL Normal 9.5-13.5 [facility] Comment on above: Performed By: #### P OCGLUC #### [facility] [address] [address] [address] Kasia Nath PLT 204 103/ul Normal 150-[address] [facility] Comment on above: Performed By: #### P OCGLUC #### [facility] [address] [address] [address] Kasia Nath RBC 4.04 106/ul Critically low 4.20-5.40 [facility] Comment on above: Performed By: #### P OCGLUC #### [facility] [address] [address] [address] Kasia Nath WBC 8.0 103/ul Normal 4.0-11.0 [facility] Comment on above: Performed By: #### P OCGLUC #### [facility] [address] [address] [address] Kasia Nath GLYCOHEMOGLOBIN A1Con 2022 ADA RECOMMENDATION SEE BELOW Normal [facility] Comment on above: Result Comment: ADA RECOMMENDED LIMIT 4.0 - 6.0 ADA THERAPEUTIC TARGET < 7.0 ACTION SUGGESTED > 7.0 Performed By: #### A 1C ####[facility] [address] [address]Dr. Kasia Nath Glucose [Mass/Vol] 298 mg/dL Normal [facility] Comment on above: Performed By: #### A 1C ####[facility] [address] [place] [address]Dr. Kasia Nath HbA1c (Bld) [Mass fraction] 12.0 % Critically high 4.5-6.2 [facility] Comment on above: Performed By: #### A 1C ####[facility] [address] [place], [place] [address]Dr. Kasia Nath POINT OF CARE GLUCOSEon 12-14 Glucose [Mass/Vol] 227 mg/dL Critically high 74-106 [facility] Comment on above: Performed By: #### C BC #### [facility] [address] [address] [address] Kasia Nath Glucose [Mass/Vol] 214 mg/dL Critically high 74-106 [facility] Comment on above: Performed By: #### C BC #### [facility] [address] [address] [address] Kasia Nath PROF 14(COMP METB)on 023 Albumin [Mass/Vol] 2.6 g/dL Critically low 3.4-5.0 [facility] [facility] Comment on above: Performed By: #### [employer] ARTISTIC DIRECTOR, CMP ####[facility] [address] [place] [address]DrDoreen Nath Albumin/Globulin [Mass ratio] 0.6 {ratio} Normal [facility] Comment on above: Performed By: #### [employer] ARTISTIC DIRECTOR, CMP ####[facility] [address] [address]Dr. Kasia Nath ALP [Catalytic activity/Vol] 94 U/L Normal 46-116 [facility] Comment on above: Performed By: #### [employer] ARTISTIC DIRECTOR, CMP ####[facility] [address] [place], [place] [address]Dr. Kasia Nath ALT [Catalytic activity/Vol] 16 U/L Normal 14-59 [facility] Comment on above: Performed By: #### [employer] ARTISTIC DIRECTOR, CMP ####[facility] [address] [place], [place] [address]Dr. Kasia Nath Anion gap [Moles/Vol] 10.6 mmol/L Normal [facility] Comment on above: Performed By: #### [employer] ARTISTIC DIRECTOR, CMP ####[facility] [address] [place], [place] [address]Dr. Kasia Nath AST [Catalytic activity/Vol] 15 U/L Normal 15-37 [facility] Comment on above: Performed By: #### [employer] ARTISTIC DIRECTOR, CMP ####[facility] [address] [place], [place] [address]Dr. Kasia Nath Bilirubin [Mass/Vol] 0.8 mg/dL Normal 0.2-1.0 [facility] Comment on above: Performed By: #### [employer] ARTISTIC DIRECTOR, CMP ####[facility] [address] [place], [place] [address]Dr. Kasia Nath Calcium [Mass/Vol] 8.5 mg/dL Normal 8.5-10.1 [facility] Comment on above: Performed By: #### [employer] ARTISTIC DIRECTOR, CMP ####[facility] [address] [place], [place] [address]Dr. Kasia Nath Chloride [Moles/Vol] 102 mmol/L Normal 98-107 [facility] Comment on above: Performed By: #### [employer] ARTISTIC DIRECTOR, CMP ####[facility] [address] [place], [place] [address]Dr. Kasia Nath CO2 [Moles/Vol] 30.2 mmol/L Normal 21.0-32.0 [facility] Comment on above: Performed By: #### [employer] ARTISTIC DIRECTOR, CMP ####[facility] [address] [id number]. Kasia Nath Creatinine [Mass/Vol] 0.94 mg/dL Normal 0.55-1.[address] [facility] Comment on above: Performed By: #### [employer] ARTISTIC DIRECTOR, CMP ####[facility] [address] [id number]. Kasia Nath EGFR-AF KITTITIAN >60 Normal >=60 [facility] Comment on above: Performed By: #### [employer] ARTISTIC DIRECTOR, CMP ####[facility] [address] [id number]. Kasia Nath EGFR-NON AF KITTITIAN 58 mL/min/1.73m2 Critically low >=60 [facility] Comment on above: Performed By: #### [employer] ARTISTIC DIRECTOR, CMP ####[facility] [address] [place] [address]Dr. Kasia Nath Globulin (S) [Mass/Vol] 4.0 g/dL Normal [facility] Comment on above: Performed By: #### [employer] ARTISTIC DIRECTOR, CMP ####[facility] [address] [id number]. Kasia Nath Glucose [Mass/Vol] 150 mg/dL Critically high 74-106 [facility] Comment on above: Performed By: #### [employer] ARTISTIC DIRECTOR, CMP ####[facility] [address] [id number]. Kasia Nath Potassium [Moles/Vol] 3.8 mmol/L Normal 3.5-5.[address] [facility] Comment on above: Performed By: #### [employer] ARTISTIC DIRECTOR, CMP ####[facility] [address] [id number]. Kasia Nath Protein [Mass/Vol] 6.6 g/dL Normal 6.4-8.2 [facility] Comment on above: Performed By: #### [employer] ARTISTIC DIRECTOR, CMP ####[facility] [address] [place] [address]Dr. Kasia Nath Sodium [Moles/Vol] 139 mmol/L Normal 136-145 [facility] Comment on above: Performed By: #### [employer] ARTISTIC DIRECTOR, CMP ####[facility] [address] [place] [phone] Nath Urea nitrogen [Mass/Vol] 24.0 mg/dL Critically high 7.0-18.0 [facility] Comment on above: Performed By: #### [employer] ARTISTIC DIRECTOR, CMP ####[facility] [address] [phone] Nath Urea nitrogen/Creatinine [Mass ratio] 25.5 mg/mg Normal [facility] Comment on above: Performed By: #### [employer] ARTISTIC DIRECTOR, CMP ####[facility] [address] [place] [phone]. Kasia Nath BNPon 01-01-2023 Natriuretic peptide B (Bld) [Mass/Vol] 1419.0 pg/mL Normal <=1,800.0 [facility] Comment on above: Performed By: #### [employer] ARTISTIC DIRECTOR #### [facility] [address] [place] [address] Dr. Kasia Nath CARDIAC EMERY 3-6on 3 CK [Catalytic activity/Vol] 80 U/L Normal 26-[address] [facility] Comment on above: Performed By: #### P OCGLUC #### [facility] [address] [place] [address] Dr. Kasia Nath CK.MB [Mass/Vol] 1.85 ng/mL Normal <=3.60 [facility] Comment on above: Performed By: #### P OCGLUC #### [facility] [address] [place] [address] Dr. Kasia Nath HSTROP 13.2 pg/mL Normal 4.0-51.[address] [facility] Comment on above: Result Comment: CUT- OFF POINTS HAVE BEEN ESTABLISHED BASED ON THE FOURTH UNIVERSAL DEFINITIONS OF MYOCARDIAL INFARCTION. THE UPPER REFERENCE LIMIT (URL) OF TROPONIN, DEFINED THE 99TH PERCENTILE OF cTnI DISTRIBUTION IN A REFERENCE POPULATION, HAS BEEN CONFIRMED THE DECISION THRESHOLD FOR SD DIAGNOSIS. Performed By: #### P OCGLUC #### [facility] [address] [place] [address] Dr. Kasia Nath CK [Catalytic activity/Vol] 73 U/L Normal 26-192 [facility] Comment on above: Performed By: #### P OCGLUC #### [facility] [address] [address] [address] Kasia Nath CK.MB [Mass/Vol] 1.71 ng/mL Normal <=3.60 [facility] Comment on above: Performed By: #### P OCGLUC #### [facility] [address] [address] [address] Kasia Nath HSTROP 13.6 pg/mL Normal 4.0-51.3 [facility] Comment on above: Result Comment: CUT- OFF POINTS HAVE BEEN ESTABLISHED BASED ON THE FOURTH UNIVERSAL DEFINITIONS OF MYOCARDIAL INFARCTION. THE UPPER REFERENCE LIMIT (URL) OF TROPONIN, DEFINED THE 99TH PERCENTILE OF cTnI DISTRIBUTION IN A REFERENCE POPULATION, HAS BEEN CONFIRMED THE DECISION THRESHOLD FOR SD DIAGNOSIS. Performed By: #### P OCGLUC #### [facility] [address] [place] [address] Dr. Kasia Nath CARDIAC EMERY ADMITon 023 CK [Catalytic activity/Vol] 71 U/L Normal 26-192 [facility] Comment on above: Performed By: #### C BC #### [facility] [address] [place] [address] Dr. Kasia Nath CK.MB [Mass/Vol] 1.69 ng/mL Normal <=3.60 [facility] Comment on above: Performed By: #### C BC #### [facility] [address] [place] [address] Dr. Kasia Nath HSTROP 13.0 pg/mL Normal 4.0-51.3 [facility] Comment on above: Result Comment: CUT- OFF POINTS HAVE BEEN ESTABLISHED BASED ON THE FOURTH UNIVERSAL DEFINITIONS OF MYOCARDIAL INFARCTION. THE UPPER REFERENCE LIMIT (URL) OF TROPONIN, DEFINED THE 99TH PERCENTILE OF cTnI DISTRIBUTION IN A REFERENCE POPULATION, HAS BEEN CONFIRMED THE DECISION THRESHOLD FOR SD DIAGNOSIS. Performed By: #### C BC #### [facility] [address] [address] [address] Kasia Nath GRETTA 75 ng/mL Normal 9-[address] [facility] Comment on above: Performed By: #### C BC #### [facility] [address] [place] [address] Dr. Kasia Nath CBC AUTO DIFFon 01-01-2023 BASO # 0.1 103/ul Normal 0.0-0.1 [facility] Comment on above: Performed By: #### C BC #### [facility] [address] [place] [address] Dr. Kasia Nath Basophils/100 WBC (Bld) 1.1 % Normal 0.2-2.0 [facility] Comment on above: Performed By: #### C BC #### [facility] [address] [place] [address] Dr. Kasia Nath EO # 0.2 103/ul Normal 0.0-0.7 [facility] Comment on above: Performed By: #### C BC #### [facility] [address] [place] [address] Dr. Kasia Nath Eosinophils/100 WBC (Bld) 2.9 % Normal 0.9-7.0 [facility] Comment on above: Performed By: #### C BC #### [facility] [address] [place] [address] Dr. Kasia Nath Erythrocyte distribution width (RBC) [Ratio] 13.8 % Normal 11.0-15.0 [facility] Comment on above: Performed By: #### C BC #### [facility] [address] [place] [address] Dr. Kasia Nath Hematocrit (Bld) [Volume fraction] 36.2 % Normal 36.0-48.0 [facility] Comment on above: Performed By: #### C BC #### [facility] [address] [place] [address] Dr. Kasia Nath Hemoglobin (Bld) [Mass/Vol] 12.1 g/dL Normal 12.0-16.0 [facility] Comment on above: Performed By: #### C BC #### [facility] [address] [place] [address] Dr. Kasia Nath IG # 0.02 10e3/ul Normal 0.00-0.03 [facility] Comment on above: Performed By: #### C BC #### [facility] [address] [place] [address] Dr. Kasia Nath IG % 0.3 % Normal 0.0-0.5 [facility] Comment on above: Performed By: #### C BC #### [facility] [address] [place] [address] Dr. Kasia Nath LYMPH # 1.5 103/ul Normal 1.2-3.[address] [facility] Comment on above: Performed By: #### C BC #### [facility] [address] [place] [address] Dr. Kasia Nath Lymphocytes/100 WBC (Bld) 19.9 % Critically low 20.5-60.0 [facility] Comment on above: Performed By: #### C BC #### [facility] [address] [place] [address] Dr. Kasia Nath MANUAL DIFF REQ NO Normal [facility] Comment on above: Performed By: #### C BC #### [facility] [address] [place] [address] Dr. Kasia Nath MCH (RBC) [Entitic mass] 29.7 pg Normal 26.7-34.[address] [facility] Comment on above: Performed By: #### C BC #### [facility] [address] [place] [address] Dr. Kasia Nath MCHC (RBC) [Mass/Vol] 33.4 g/dL Normal 29.9-35.[address] [facility] Comment on above: Performed By: #### C BC #### [facility] [address] [place] [address] Dr. Kasia Nath MCV (RBC) [Entitic vol] 88.9 fL Normal 81.0-99.[address] [facility] Comment on above: Performed By: #### C BC #### [facility] [address] [place] [address] Dr. Kasia Nath MONO # 0.6 103/ul Normal 0.3-0.[address] [facility] Comment on above: Performed By: #### C BC #### [facility] [address] [place] [address] Dr. Kasia Nath Monocytes/100 WBC (Bld) 8.0 % Normal 1.7-12.0 [facility] Comment on above: Performed By: #### C BC #### [facility] [address] [place] [address] Dr. Kasia Nath NEUT # 5.1 103/ul Normal 1.4-6.5 [facility] Comment on above: Performed By: #### C BC #### [facility] [address] [place] [address] Dr. Kasia Nath Neutrophils/100 WBC (Bld) 67.8 % Normal 43.0-75.0 [facility] Comment on above: Performed By: #### C BC #### [facility] [address] [place] [address] Dr. Kasia Nath Platelet mean volume (Bld) [Entitic vol] 10.4 fL Normal 9.5-13.5 [facility] Comment on above: Performed By: #### C BC #### [facility] [address] [place] [address] Dr. Kasia Nath PLT 200 103/ul Normal 150-[address] [facility] Comment on above: Performed By: #### C BC #### [facility] [address] [place] [address] Dr. Kasia Nath RBC 4.07 106/ul Critically low 4.20-5.40 [facility] Comment on above: Performed By: #### C BC #### [facility] [address] [place] [address] Dr. Kasia Nath WBC 7.5 103/ul Normal 4.0-11.[address] [facility] Comment on above: Performed By: #### C BC #### [facility] [address] [place] [address] CHEST WO CONon [...] two extremes (Agatston score 101-1000). https://pubs.rsna.org/do i/abs/10.1148/[email or web address] Electronically authenticated by: RENETTA MICHAELS Date: 2023-01-01 14:[address] [facility] Covid-19 PCR (CVDTBH)on 12-14 SARS-CoV-2 (COVID-19) RNA FERN+probe Ql (Unsp spec) Not detected Normal NOT DETECTED [facility] Comment on above: Result Comment: When [...] for this test is supported by the Financial Coach of Health and Human Service's declaration that [...] used). Performed By: #### C [facility] #### [facility] [address] [place] [address] Dr. Kasia Nath ECHO LIMITED STUDYon 023 ECHO LIMITED STUDY Patient: SAIMA CALL Exam Date: 01/01/2023 : 1945 Gender:F Ordering : LD GUERRERO . Admission #: [id number] Family : Order #: [id number] CLICK HERE TO VIEW EXAM ECHOCARDIOGRAM REPORT [...] Kaplan M.D. on 01/01/2023 at 13:19 Normal [facility] GLYCOHEMOGLOBIN A1Con 2022 ADA RECOMMENDATION SEE BELOW Normal [facility] Comment on above: Result Comment: ADA RECOMMENDED LIMIT 4.0 - 6.0 ADA THERAPEUTIC TARGET < 7.0 ACTION SUGGESTED > 7.0 Performed By: #### P OCGLUC #### [facility] [address] [address] [address] Kasia Nath Glucose [Mass/Vol] 318 mg/dL Normal [facility] Comment on above: Performed By: #### P OCGLUC #### [facility] [address] [address] [address] Kasia Nath HbA1c (Bld) [Mass fraction] 12.7 % Critically high 4.5-6.2 [facility] Comment on above: Performed By: #### P OCGLUC #### [facility] [address] [address] [address] Kasia Nath POINT OF CARE GLUCOSEon 12-14 Glucose [Mass/Vol] 162 mg/dL Critically high -106 [facility] Comment on above: Performed By: #### P OCGLUC ####[facility] [address] [place] [address]Dr. Kasia Nath Glucose [Mass/Vol] 213 mg/dL Critically high -106 [facility] Comment on above: Performed By: #### P OCGLUC ####[facility] [address] [place] [address]Dr. Kasia Nath Glucose [Mass/Vol] 248 mg/dL Critically high -106 [facility] Comment on above: Performed By: #### P OCGLUC #### [facility] [address] [address] [address] Kasia Nath PROF CHEM 8 (BAS METB)on Anion gap [Moles/Vol] 11.8 mmol/L Normal [facility] Comment on above: Performed By: #### C BC #### [facility] [address] [address] [address] Kasia Nath Calcium [Mass/Vol] 8.4 mg/dL Critically low 8.5-10.1 [facility] Comment on above: Performed By: #### C BC #### [facility] [address] [address] [address] Kasia Nath Chloride [Moles/Vol] 102 mmol/L Normal 98-107 [facility] Comment on above: Performed By: #### C BC #### [facility] [address] [place] [address] Dr. Kasia Nath CO2 [Moles/Vol] 28.4 mmol/L Normal 21.0-32.0 [facility] Comment on above: Performed By: #### C BC #### [facility] [address] [place] [address] Dr. Kasia Nath Creatinine [Mass/Vol] 1.09 mg/dL Critically high 0.55-1.02 [facility] Comment on above: Performed By: #### C BC #### [facility] [address] [place] [address] Dr. Kasia Nath EGFR-AF KITTITIAN 59 mL/min/1.73m2 Critically low >=60 [facility] Comment on above: Performed By: #### C BC #### [facility] [address] [place] [address] Dr. Kasia Nath EGFR-NON AF KITTITIAN 49 mL/min/1.73m2 Critically low >=60 [facility] Comment on above: Performed By: #### C BC #### [facility] [address] [place] [address] Dr. Kasia Nath Glucose [Mass/Vol] 247 mg/dL Critically high 74-106 [facility] Comment on above: Performed By: #### C BC #### [facility] [address] [place] [address] Dr. Kasia Nath Potassium [Moles/Vol] 4.2 mmol/L Normal 3.5-5.1 [facility] Comment on above: Performed By: #### C BC #### [facility] [address] [address] [address] Kasia Nath Sodium [Moles/Vol] 138 mmol/L Normal 136-145 [facility] Comment on above: Performed By: #### C BC #### [facility] [address] [address] [address] Kasia Nath Urea nitrogen [Mass/Vol] 28.0 mg/dL Critically high 7.0-18.0 [facility] Comment on above: Performed By: #### C BC #### [facility] [address] [address] [address] Kasia Nath Urea nitrogen/Creatinine [Mass ratio] 25.7 mg/mg Normal [facility] Comment on above: Performed By: #### C BC #### [facility] [address] [place] [address] Dr. Kasia Nath XR CHEST 1 Von [...] by: Miranda ALVAREZ Date: 2023-01-01 05:38 Normal [facility] ECHOCARDIO M/2D COMPLETEon 1 11-15-2021 ECHOCARDIO M/2D COMPLETE Patient: JOE CALL Exam Date: 09/15/2022 : 1945 Gender:F Ordering : YAMEL MCCRACKEN [facility] Admission #: [id number] Family : DR SHANTEL STEVEN M.D. Order #: [id number] CLICK HERE TO VIEW EXAM ECHOCARDIOGRAM REPORT [...] M.D. on 09/15/2022 at 18:[address] [facility] GI PANEL (PCR)on 05-02-2022 Adenovirus F 40/41 Not detected Normal NOT DETECTED [facility] Comment on above: Performed By: #### P OCGLUC #### [facility] [address] [place] [address] Dr. Kasia Nath Astrovirus Not detected Normal NOT DETECTED [facility] Comment on above: Performed By: #### P OCGLUC #### [facility] [address] [place] [address] Dr. Kasia Nath C. Diff toxin A/B Not detected Normal NOT DETECTED [facility] Comment on above: Performed By: #### P OCGLUC #### [facility] [address] [place] [address] Dr. Kasia Nath Campylobacter Not detected Normal NOT DETECTED [facility] Comment on above: Performed By: #### P OCGLUC #### [facility] [address] [address] [address] Kasia Nath Cryptosporidium Not detected Normal NOT DETECTED [facility] Comment on above: Performed By: #### P OCGLUC #### [facility] [address] [address] [address] Kasia Nath Cyclos. Cayetanensis Not detected Normal NOT DETECTED [facility] Comment on above: Performed By: #### P OCGLUC #### [facility] [address] [address] [address] Kasia Nath E. Coli O157 Not Applicable Normal Not Applicable [facility] Comment on above: Performed By: #### P OCGLUC #### [facility] [address] [place] [address] Dr. Kasia Nath E. histolytica Not detected Normal NOT DETECTED [facility] Comment on above: Performed By: #### P OCGLUC #### [facility] [address] [place] [address] Dr. Kasia Nath EAEC Not detected Normal NOT DETECTED [facility] Comment on above: Performed By: #### P OCGLUC #### [facility] [address] [place] [address] Dr. Kasia Nath EIEC Not detected Normal NOT DETECTED [facility] Comment on above: Performed By: #### P OCGLUC #### [facility] [address] [place] [address] Dr. Kasia Nath EPEC Detected Abnormal NOT DETECTED [facility] Comment on above: Performed By: #### P OCGLUC #### [facility] [address] [place] [address] Dr. Kasia Nath ETEC Not detected Normal NOT DETECTED [facility] Comment on above: Performed By: #### P OCGLUC #### [facility] [address] [place] [address] Dr. Kasia Nath G. Lamblia Not detected Normal NOT DETECTED [facility] Comment on above: Performed By: #### P OCGLUC #### [facility] [address] [place] [address] Dr. Kasia Nath GIPANEL CONTROLS PASSED Normal [facility] Comment on above: Performed By: #### P OCGLUC #### [facility] [address] [address] [address] Kasia FRAIRE HEADER GI PANEL BACTERIA Normal [facility] Comment on above: Performed By: #### P OCGLUC #### [facility] [address] [address] [address] Kasia GE ECOLI GI PANEL DIARRHEAGEN IC E.COLI / SHIGELLA Normal [facility] Comment on above: Performed By: #### P OCGLUC #### [facility] [address] [address] [address] Kasia GE INFO SEE BELOW [facility] Comment on above: Result Comment: EAEC - Enteroaggregative E. Coli EPEC- Enteropathogenic E. Coli ETEC- Enterotoxigenic E. Coli lt/st STEC- Shigella-like toxin-producing E. Coli stx1/stx2 EIEC- Shigella/Enteroinvasive E. Coli Performed By: #### P OCGLUC #### [facility] [address] [address] [address] Kasia GE PARASITES GI PANEL PARASITES Normal [facility] Comment on above: Performed By: #### P OCGLUC #### [facility] [address] [address] [address] Kasia GE VIRUS GI PANEL VIRUSES Normal [facility] Comment on above: Performed By: #### P OCGLUC #### [facility] [address] [address] [address] Kasia Nath Norovirus GI/GII Not detected Normal NOT DETECTED [facility] Comment on above: Performed By: #### P OCGLUC #### [facility] [address] [address] [address] Kasia Garland. Shigelloides Not detected Normal NOT DETECTED [facility] Comment on above: Performed By: #### P OCGLUC #### [facility] [address] [address] [address] Kasia Nath Rotavirus A Not detected Normal NOT DETECTED [facility] Comment on above: Performed By: #### P OCGLUC #### [facility] [address] [address] [address] Kasia Nath Salmonella Not detected Normal NOT DETECTED [facility] Comment on above: Performed By: #### P OCGLUC #### [facility] [address] [address] [address] Kasia Nath Sapovirus Not detected Normal NOT DETECTED [facility] Comment on above: Performed By: #### P OCGLUC #### [facility] [address] [address] [address] Kasia Nath STEC Not detected Normal NOT DETECTED [facility] Comment on above: Performed By: #### P OCGLUC #### [facility] [address] [address] [address] Kasia Nath Vibrio Not detected Normal NOT DETECTED [facility] Comment on above: Performed By: #### P OCGLUC #### [facility] [address] [address] [address] Kasia Nath Vibrio Cholera Not detected Normal NOT DETECTED [facility] Comment on above: Performed By: #### P OCGLUC #### [facility] [address] [address] [address] Kasia Nath Y. Enterocolitica Not detected Normal NOT DETECTED [facility] Comment on above: Performed By: #### P OCGLUC #### [facility] [address] [address] [address] Kasia Nath OCC BLD IMMUNO SCREENon -2 OCCULT BLOOD Negative Normal NEGATIVE [facility] Comment on above: Performed By: #### C BC #### [facility] [address] [address] [address] aKsia Nath XR knee BI 4Von 08-25-2021 XR knee BI 4V [facility] [email or web address] Other XR knee BI 4V [facility] [email or web address] Other XR knee BI 4V [address] [place] [address] [employer] Other XR knee BI 4V [address] [employer] Other XR knee BI 4V XRay Report [employer] Other XR knee BI 4V Signed [employer] Other XR knee BI 4V Patient: Joe Call MR#: [id number] [employer] Other XR knee BI 4V 0 [employer] Other XR knee BI 4V : 1945 Acct:[id number] [employer] Other XR knee BI 4V Age/Sex: 76 / F ADM Date: 08/25/21 [employer] Other XR knee BI 4V Loc: [facility]XD Room: Type : [facility] [employer] Other XR knee BI 4V Attending Dr: Akbar Cui II, MD [employer] Other XR knee BI 4V Ordering Provider: Akbar Cui MD [employer] Other XR knee BI 4V Date of Service: 08/25/21 [employer] Other XR knee BI 4V XR/XR knee BI 4V: Pain in right knee;Pain in left knee [employer] Other XR knee BI 4V Copies to: Akbar Cui MD [employer] Other XR knee BI 4V XR knee BI 4V 2020 1:32 PM [employer] Other XR knee BI 4V SIGNS AND SYMPTOMS: Bilateral knee pain with decreased range of motion, weakness [employer] Other XR knee BI 4V PROTOCOL: Frontal, lateral, and sunrise views of the bilateral knees [employer] Other XR knee BI 4V COMPARISON: None [employer] Other XR knee BI 4V FINDINGS: [employer] Other XR knee BI 4V There is mild narrow ing of the medial weightbearing joint spaces. There is mild patellofemoral [employer] Other XR knee BI 4V joint space loss. Th ere is spurring of the poles of the patella bilaterally. There is mild lateral [employer] Other XR knee BI 4V patellar subluxation bilaterally. There is no evidence of acute displaced fracture. Well-corticated [employer] Other XR knee BI 4V ossific structures o r separate from the right medial weightbearing joint space. This may represent a [employer] Other XR knee BI 4V calcified loose bodies. [employer] Other XR knee BI 4V X R/XR knee BI 4V [employer] Other XR knee BI 4V IMPRESSION: Palmer Harg[employer] Other XR knee BI 4V Degenerative changes are noted are noted bilaterally, as above. [employer] Other XR knee BI 4V Well-corticated ossi fic structures or separate from the right medial weightbearing joint space. This [employer] Other XR knee BI 4V may represent a calcified loose bodies. [employer] Other XR knee BI 4V No acute displaced fracture. [employer] Other XR knee BI 4V There is mild latera l subluxation of the patella within the patellofemoral joint space bilaterally. [employer] Other XR knee BI 4V Impression dictated by: Emery Lobo M.D.08/25/2021 2:51 PM [employer] Other XR knee BI 4V Dictation Location: [place] [address] [employer] Other XR knee BI 4V Transcribed By: RAFAEL 08/25/21 1451 [employer] Other XR knee BI 4V Dictated By: Emery Lobo II, MD 08/25/21 1447 [employer] Other XR knee BI 4V Signed By: [employer] Other XR knee BI 4V 08/25/21 1451 [employer] [facility] [email or web address] Other XR pelvis 1-2Von 08-25-2021 XR pelvis 1-2V XR/XR pelvis 1-2V: Pain in right knee;Pain in left knee [employer] Other XR pelvis 1-2V XR pelvis 1-2V 08/25/2021 1:32 PM [employer] Other XR pelvis 1-2V SIGNS AND SYMPTOMS: Bilateral generalized knee pain, limited range of motion with weakness [employer] Other XR pelvis 1-2V PROTOCOL: Frontal radiograph of the pelvis [employer] Other XR pelvis 1-2V There is mild narrow ing of the weightbearing joint spaces. Mild degenerative changes are noted in [employer] Other XR pelvis 1-2V the symphysis pubis. There is no evidence of fracture or dislocation. Vascular calcifications are [employer] Other XR pelvis 1-2V present in the pelvis. [employer] Other XR pelvis 1-2V X R/XR pelvis 1-2V [employer] Other XR pelvis 1-2V No fracture or dislocation. [employer] Other XR pelvis 1-2V Mild degenerative changes are noted in the joint space of the hips. [employer] Other XR pelvis 1-2V Impression dictated by: Emery Lobo M.D.08/25/2021 2:54 PM [employer] Other XR pelvis 1-2V Transcribed By: PWS 08/25/[address] [place] [address] [employer] Other XR pelvis 1-2V Dictated By: Emery Lobo II, MD 08/25/[address] [place] [address] [employer] Other XR pelvis 1-2V 08/25/[address] [place] [address] [employer] Other Vital Signs Date Time Vital Sign Value Performing Clinician Facility 01-14-2025 10:00-0500 Body height 165.1 cm Shantel Steven MD Work Phone: [facility] 01-14-2025 10:00-0500 Body mass index (BMI) [Ratio] 44.3 kg/m2 Shantel Steven MD Work Phone: [facility] 01-14-2025 10:00-0500 Body weight 120.88 kg Shantel Steven MD Work Phone: [facility] 01-14-2025 10:00-0500 Diastolic blood pressure 80 mm[Hg] Shantel Steven MD Work Phone: [facility] 01-14-2025 10:00-0500 Heart rate 66 /min Shantel Steven MD Work Phone: [facility] 01-14-2025 10:00-0500 SaO2% (BldA) [Mass fraction] 93 % Shantel Steven MD Work Phone: [facility] 01-14-2025 10:00-0500 Systolic blood pressure 176 mm[Hg] Shantel Steven MD Work Phone: [facility] 01-06-2025 15:22-0500 Body height 165.1 cm Shantel Steven MD Work Phone: [facility] 01-06-2025 15:22-0500 Body mass index (BMI) [Ratio] 44.7 kg/m2 Shantel Steven MD Work Phone: [facility] 01-06-2025 15:22-0500 Body weight 122.01 kg Shantel Steven MD Work Phone: [facility] 01-06-2025 15:22-0500 Diastolic blood pressure 83 mm[Hg] Shantel Steven MD Work Phone: [facility] 01-06-2025 15:22-0500 Heart rate 66 /min Shantel Steven MD Work Phone: [facility] 01-06-2025 15:22-0500 Systolic blood pressure 155 mm[Hg] Shantel Steven MD Work Phone: [facility] 12-26-2024 12:58-0500 Body height 165.1 cm Jorge Luis Tupa DO Work Phone: [facility] 12-26-2024 12:58-0500 Body mass index (BMI) [Ratio] 43.6 kg/m2 Jorge Luis Tupa DO Work Phone: [facility] 12-26-2024 12:58-0500 Body weight 118.84 kg Jorge Luis Tupa DO Work Phone: [facility] 12-26-2024 12:58-0500 Diastolic blood pressure 79 mm[Hg] Jorge Luis Tupa DO Work Phone: [facility] 12-26-2024 12:58-0500 Heart rate 92 /min Jorge Luis Tupa DO Work Phone: [facility] 12-26-2024 12:58-0500 SaO2% (BldA) [Mass fraction] 97 % Jorge Luis Tupa DO Work Phone: [facility] 12-26-2024 12:58-0500 Systolic blood pressure 175 mm[Hg] Jorge Luis Tupa DO Work Phone: [facility] 12-09-2024 13:33-0500 Body height 165.1 cm Jorge Luis Tupa DO Work Phone: [facility] 12-09-2024 13:33-0500 Body mass index (BMI) [Ratio] 43.4 kg/m2 Jorge Luis Tupa DO Work Phone: [facility] 12-09-2024 13:33-0500 Body weight 118.55 kg Jorge Luis Tupa DO Work Phone: [facility] 12-09-2024 13:33-0500 Diastolic blood pressure 83 mm[Hg] Jorge Luis Tupa DO Work Phone: [facility] 12-09-2024 13:33-0500 Heart rate 81 /min Jorge Luis Tupa DO Work Phone: [facility] 12-09-2024 13:33-0500 Respiratory rate 14 /min Jorge Luis Tupa DO Work Phone: [facility] 12-09-2024 13:33-0500 Systolic blood pressure 156 mm[Hg] Jorge Luis Tupa DO Work Phone: [facility] 11-11-2024 13:46-0500 Body height 165.1 cm Jorge Luis Tupa DO Work Phone: [facility] 11-11-2024 13:46-0500 Body mass index (BMI) [Ratio] 41.1 kg/m2 Jorge Luis Tupa DO Work Phone: [facility] 11-11-2024 13:46-0500 Body temperature 97.3 [degF] Jorge Luis Tupa DO Work Phone: [facility] 11-11-2024 13:46-0500 Body weight 112.03 kg Jorge Luis Tupa DO Work Phone: [facility] 11-11-2024 13:46-0500 Diastolic blood pressure 84 mm[Hg] Jorge Luis Tupa DO Work Phone: [facility] 11-11-2024 13:46-0500 Heart rate 95 /min Jorge Luis Tupa DO Work Phone: [facility] 11-11-2024 13:46-0500 Respiratory rate 16 /min Jorge Luis Tupa DO Work Phone: [facility] 11-11-2024 13:46-0500 SaO2% (BldA) [Mass fraction] 96 % Jorge Luis Tupa DO Work Phone: [facility] 11-11-2024 13:46-0500 Systolic blood pressure 145 mm[Hg] Jorge Luis Tupa DO Work Phone: [facility] 11-03-2024 11:43-0500 Body height 165.1 cm Jorge Luis Tupa DO Work Phone: [facility] 11-03-2024 11:43-0500 Body mass index (BMI) [Ratio] 41.1 kg/m2 Jorge Luis Tupa DO Work Phone: [facility] 11-03-2024 11:43-0500 Body weight 112.03 kg Jorge Luis Tupa DO Work Phone: [facility] 11-03-2024 11:43-0500 Diastolic blood pressure 70 mm[Hg] Jorge Luis Tupa DO Work Phone: [facility] 11-03-2024 11:43-0500 Heart rate 78 /min Jorge Luis Tupa DO Work Phone: [facility] 11-03-2024 11:43-0500 SaO2% (BldA) [Mass fraction] 97 % Jorge Luis Tupa DO Work Phone: [facility] 11-03-2024 11:43-0500 Systolic blood pressure 138 mm[Hg] Jorge Luis Tupa DO Work Phone: [facility] 10-25-2024 07:49-0500 Diastolic blood pressure 73 mm[Hg] Jorge Luis Tupa DO Work Phone: [facility] 10-25-2024 07:49-0500 Heart rate 85 /min Jorge Luis Tupa DO Work Phone: [facility] 10-25-2024 07:49-0500 Respiratory rate 18 /min Jorge Luis Tupa DO Work Phone: [facility] 10-25-2024 07:49-0500 SaO2% (BldA) [Mass fraction] 98 % Jorge Luis Tupa DO Work Phone: [facility] 10-25-2024 07:49-0500 Systolic blood pressure 135 mm[Hg] Jorge Luis Tupa DO Work Phone: [facility] 10-25-2024 05:58-0500 Body height 165.1 cm Jorge Luis Tupa DO Work Phone: [facility] 10-25-2024 05:58-0500 Body temperature 98 [degF] Jorge Luis Tupa DO Work Phone: [facility] 10-25-2024 05:58-0500 Body weight 122.92 kg Jorge Luis Tupa DO Work Phone: [facility] 10-22-2024 04:48-0500 Body height 165.1 cm Jorge Luis Tupa DO Work Phone: [facility] 10-22-2024 04:48-0500 Body temperature 98.5 [degF] Jorge Luis Tupa DO Work Phone: [facility] 10-22-2024 04:48-0500 Body weight 114.8 kg Jorge Luis Tupa DO Work Phone: [facility] 10-22-2024 04:48-0500 Diastolic blood pressure 68 mm[Hg] Jorge Luis Tupa DO Work Phone: [facility] 10-22-2024 04:48-0500 Heart rate 100 /min Jorge Luis Tupa DO Work Phone: [facility] 10-22-2024 04:48-0500 Respiratory rate 18 /min Jorge Luis Tupa DO Work Phone: [facility] 10-22-2024 04:48-0500 SaO2% (BldA) [Mass fraction] 97 % Jorge Luis Tupa DO Work Phone: [facility] 10-22-2024 04:48-0500 Systolic blood pressure 132 mm[Hg] Jorge Luis Tupa DO Work Phone: [facility] 10-20-2024 12:00-0500 Body temperature 97.4 [degF] Jorge Luis Tupa DO Work Phone: [facility] 10-20-2024 12:00-0500 Diastolic blood pressure 73 mm[Hg] Jorge Luis Tupa DO Work Phone: [facility] 10-20-2024 12:00-0500 Heart rate 98 /min Jorge Luis Tupa DO Work Phone: [facility] 10-20-2024 12:00-0500 Respiratory rate 20 /min Jorge Luis Tupa DO Work Phone: [facility] 10-20-2024 12:00-0500 SaO2% (BldA) [Mass fraction] 98 % Jorge Luis Tupa DO Work Phone: [facility] 10-20-2024 12:00-0500 Systolic blood pressure 116 mm[Hg] Jorge Luis Tupa DO Work Phone: [facility] 10-20-2024 05:57-0500 Body weight 110.9 kg Jorge Luis Tupa DO Work Phone: [facility] 10-17-2024 14:18-0500 Body height 165.1 cm Jorge Luis Tupa DO Work Phone: [facility] 10-01-2024 09:51-0500 Body height 165.1 cm Christel Chacon MD Work Phone: [facility] 10-01-2024 09:51-0500 Body mass index (BMI) [Ratio] 42.27 kg/m2 Christel Chacon MD Work Phone: [facility] 10-01-2024 09:51-0500 Body weight 115.21 kg Christel Chacon MD Work Phone: [facility] 10-01-2024 09:51-0500 Diastolic blood pressure 110 mm[Hg] Christel Chacon MD Work Phone: [facility] 10-01-2024 09:51-0500 Systolic blood pressure 138 mm[Hg] Christel Chacon MD Work Phone: [facility] 08-07-2024 10:04-0400 Body height 165.1 cm MD Shantel Steven Work Phone: [facility] 08-07-2024 10:04-0400 Body mass index (BMI) [Ratio] 43.1 kg/m2 MD Shantel Steven Work Phone: [facility] 08-07-2024 10:04-0400 Body weight 117.48 kg MD Shantel Steven Work Phone: [facility] 08-07-2024 10:04-0400 Diastolic blood pressure 69 mm[Hg] MD Shantel Steven Work Phone: [facility] 08-07-2024 10:04-0400 Heart rate 52 /min MD Shantel Steven Work Phone: [facility] 08-07-2024 10:04-0400 SaO2% (BldA) [Mass fraction] 93 % MD Shantel Steven Work Phone: [facility] 08-07-2024 10:04-0400 Systolic blood pressure 117 mm[Hg] MD Shantel Steven Work Phone: [facility] 07-22-2024 13:15-0400 Body height 165.1 cm Christel Chacon MD Work Phone: [facility] 07-22-2024 13:15-0400 Body mass index (BMI) [Ratio] 42.6 kg/m2 Christel Chacon MD Work Phone: [facility] 07-22-2024 13:15-0400 Body weight 116.12 kg Christel Chacon MD Work Phone: [facility] 07-22-2024 13:15-0400 Diastolic blood pressure 82 mm[Hg] Christel Chacon MD Work Phone: [facility] 07-22-2024 13:15-0400 Systolic blood pressure 130 mm[Hg] Christel Chacon MD Work Phone: [facility] 07-16-2024 10:20-0400 Body height 165.1 cm MD Shantel Steven Work Phone: [facility] 07-16-2024 10:20-0400 Body mass index (BMI) [Ratio] 43.1 kg/m2 MD Shantel Steven Work Phone: [facility] 07-16-2024 10:20-0400 Body weight 117.48 kg MD Shantel Steven Work Phone: [facility] 07-16-2024 10:20-0400 Diastolic blood pressure 80 mm[Hg] MD Shantel Steven Work Phone: [facility] 07-16-2024 10:20-0400 Heart rate 60 /min MD Shantel Steven Work Phone: [facility] 07-16-2024 10:20-0400 Systolic blood pressure 151 mm[Hg] MD Shantel Steven Work Phone: [facility] 07-10-2024 13:40-0400 Body height 165.1 cm Lizett Orville [employer] Work Phone: [facility] 07-10-2024 13:40-0400 Body mass index (BMI) [Ratio] 42.43 kg/m2 Lizett Gillmor [employer] Work Phone: [facility] 07-10-2024 13:40-0400 Body weight 115.67 kg Lizett Gillmor [employer] Work Phone: [facility] 07-10-2024 13:40-0400 Diastolic blood pressure 86 mm[Hg] Lizett Gillmor [employer] Work Phone: [facility] 07-10-2024 13:40-0400 Systolic blood pressure 132 mm[Hg] Lizett Hoodteo DUNN Work Phone: [facility] 07-07-2024 11:41-0400 Body height 165.1 cm MD Shantel Steven Work Phone: [facility] 07-07-2024 11:41-0400 Body mass index (BMI) [Ratio] 42.4 kg/m2 MD Shantel Steven Work Phone: [facility] 07-07-2024 11:41-0400 Body weight 115.66 kg MD Shantel Steven Work Phone: [facility] 07-07-2024 11:41-0400 Diastolic blood pressure 79 mm[Hg] MD Shantel Steven Work Phone: [facility] 07-07-2024 11:41-0400 Heart rate 66 /min MD Shantel Steven Work Phone: [facility] 07-07-2024 11:41-0400 Systolic blood pressure 132 mm[Hg] MD Shantel Steven Work Phone: [facility] 06-16-2024 13:08-0400 Body height 165.1 cm MD Shantel Steven Work Phone: [facility] 06-16-2024 13:08-0400 Body mass index (BMI) [Ratio] 41.9 kg/m2 MD Shantel Steven Work Phone: [facility] 06-16-2024 13:08-0400 Body weight 114.3 kg MD Shantel Steven Work Phone: [facility] 06-16-2024 13:08-0400 Diastolic blood pressure 73 mm[Hg] MD Shantel Steven Work Phone: [facility] 06-16-2024 13:08-0400 Heart rate 55 /min MD Shantel Steven Work Phone: [facility] 06-16-2024 13:08-0400 Systolic blood pressure 137 mm[Hg] MD Shantel Steven Work Phone: [facility] 06-05-2024 11:51-0400 Body height 165.1 cm MD Shantel Steven Work Phone: [facility] 06-05-2024 11:51-0400 Body mass index (BMI) [Ratio] 43.2 kg/m2 MD Shantel Steven Work Phone: [facility] 06-05-2024 11:51-0400 Body temperature 96.6 [degF] MD Shantel Steven Work Phone: [facility] 06-05-2024 11:51-0400 Body weight 117.7 kg MD Shantel Steven Work Phone: [facility] 06-05-2024 11:51-0400 Diastolic blood pressure 74 mm[Hg] MD Shantel Steven Work Phone: [facility] 06-05-2024 11:51-0400 Heart rate 63 /min MD Shantel Steven Work Phone: [facility] 06-05-2024 11:51-0400 Respiratory rate 18 /min MD Shantel Steven Work Phone: [facility] 06-05-2024 11:51-0400 SaO2% (BldA) [Mass fraction] 97 % MD Shantel Steven Work Phone: [facility] 06-05-2024 11:51-0400 Systolic blood pressure 138 mm[Hg] MD Shantel Steven Work Phone: [facility] 05-22-2024 09:18-0400 Heart rate 55 /min MD Shantel Steven Work Phone: [facility] 05-22-2024 09:09-0400 Body temperature 97.8 [degF] MD Shantel Steven Work Phone: [facility] 05-22-2024 09:09-0400 Diastolic blood pressure 64 mm[Hg] MD Shantel Steven Work Phone: [facility] 05-22-2024 09:09-0400 Respiratory rate 22 /min MD Shantel Steven Work Phone: [facility] 05-22-2024 09:09-0400 SaO2% (BldA) [Mass fraction] 94 % MD Shantel Steven Work Phone: [facility] 05-22-2024 09:09-0400 Systolic blood pressure 140 mm[Hg] MD Shantel Steven Work Phone: [facility] 05-22-2024 09:08-0400 Body height 165.1 cm MD Shantel Steven Work Phone: [facility] 05-22-2024 09:08-0400 Body weight 117.48 kg MD Shantel Steven Work Phone: [facility] 05-19-2024 14:16-0400 Body height 165.1 cm MD Shantel Steven Work Phone: [facility] 05-19-2024 14:16-0400 Body mass index (BMI) [Ratio] 43.1 kg/m2 MD Shantel Steven Work Phone: [facility] 05-19-2024 14:16-0400 Body weight 117.48 kg MD Shantel Steven Work Phone: [facility] 05-19-2024 14:16-0400 Diastolic blood pressure 72 mm[Hg] MD Shantel Steven Work Phone: [facility] 05-19-2024 14:16-0400 Heart rate 56 /min MD Shantel Steven Work Phone: [facility] 05-19-2024 14:16-0400 Systolic blood pressure 133 mm[Hg] MD Shantel Steven Work Phone: [facility] 05-07-2024 11:52-0400 Body height 165.1 cm MD Shantel Steven Work Phone: [facility] 05-07-2024 11:52-0400 Body mass index (BMI) [Ratio] 41.5 kg/m2 MD Shantel Steven Work Phone: [facility] 05-07-2024 11:52-0400 Body temperature 98.5 [degF] MD Shantel Steven Work Phone: [facility] 05-07-2024 11:52-0400 Body weight 113.39 kg MD Shantel Steven Work Phone: [facility] 05-07-2024 11:52-0400 Diastolic blood pressure 81 mm[Hg] MD Shantel Steven Work Phone: [facility] 05-07-2024 11:52-0400 Heart rate 91 /min MD Shantel Steven Work Phone: [facility] 05-07-2024 11:52-0400 Systolic blood pressure 141 mm[Hg] MD Shantel Steven Work Phone: [facility] 04-29-2024 12:54-0400 Body height 165.1 cm MD Shantel Steven Work Phone: [facility] 04-29-2024 12:54-0400 Body mass index (BMI) [Ratio] 41.5 kg/m2 MD Shantel Steven Work Phone: [facility] 04-29-2024 12:54-0400 Body weight 113.39 kg MD Shantel Steven Work Phone: [facility] 04-29-2024 12:54-0400 Diastolic blood pressure 58 mm[Hg] MD Shantel Steven Work Phone: [facility] 04-29-2024 12:54-0400 Heart rate 54 /min MD Shantel Steven Work Phone: [facility] 04-29-2024 12:54-0400 Systolic blood pressure 90 mm[Hg] MD Shantel Steven Work Phone: [facility] 04-03-2024 11:29-0400 Body height 165.1 cm MD Shantel Steven Work Phone: [facility] 04-03-2024 11:29-0400 Body mass index (BMI) [Ratio] 43.7 kg/m2 MD Shantel Steven Work Phone: [facility] 04-03-2024 11:29-0400 Body weight 119.29 kg MD Shantel Steven Work Phone: [facility] 04-03-2024 11:29-0400 Diastolic blood pressure 71 mm[Hg] MD Shantel Steven Work Phone: [facility] 04-03-2024 11:29-0400 Heart rate 56 /min MD Shantel Steven Work Phone: [facility] 04-03-2024 11:29-0400 Systolic blood pressure 116 mm[Hg] MD Shantel Steven Work Phone: [facility] 03-25-2024 15:15-0400 Body height 165.1 cm MD Shantel Steven Work Phone: [facility] 03-25-2024 15:15-0400 Body mass index (BMI) [Ratio] 43.9 kg/m2 MD Shantel Steven Work Phone: [facility] 03-25-2024 15:15-0400 Body weight 119.74 kg MD Shantel Steven Work Phone: [facility] 03-25-2024 15:15-0400 Diastolic blood pressure 87 mm[Hg] MD Shantel Steven Work Phone: [facility] 03-25-2024 15:15-0400 Heart rate 66 /min MD Shantel Steven Work Phone: [facility] 03-25-2024 15:15-0400 Systolic blood pressure 125 mm[Hg] MD Shantel Steven Work Phone: [facility] 02-15-2024 14:18-0400 Body height 165.[address] [facility] 02-15-2024 14:18-0400 Body mass index (BMI) [Ratio] 38.6 kg/m2 [facility] 02-15-2024 14:18-0400 Body weight 105.[address] [facility] 02-15-2024 14:18-0400 Diastolic blood pressure 66 mm[Hg] [facility] 02-15-2024 14:18-0400 Heart rate 55 /min [facility] 02-15-2024 14:18-0400 Systolic blood pressure 114 mm[Hg] [facility] 01-18-2024 10:23-0500 Body height 165.[address] [facility] 01-18-2024 10:23-0500 Body mass index (BMI) [Ratio] 43.2 kg/m2 [facility] 01-18-2024 10:23-0500 Body weight 117.[address] [facility] 01-18-2024 10:23-0500 Diastolic blood pressure 70 mm[Hg] [facility] 01-18-2024 10:23-0500 Heart rate 98 /min [facility] 01-18-2024 10:23-0500 SaO2% (BldA) [Mass fraction] 65 % [facility] 01-18-2024 10:23-0500 Systolic blood pressure 110 mm[Hg] [facility] 10-23-2023 16:00-0500 Body height 165.1 cm Jaleesa [employer] Other [employer] [facility] [email or web address] Other 10-23-2023 16:00-0500 Body mass index (BMI) [Ratio] 44.63 kg/m2 [employer] Other [employer] Other 10-23-2023 16:00-0500 Body temperature 96.8 [degF] Jaleesa [employer] Other [employer] Other 10-23-2023 16:00-0500 Body weight 121.66 kg Jaleesa [employer] Other [employer] Other 10-23-2023 16:00-0500 Diastolic blood pressure 60 mm[Hg] [employer] Other [employer] Other 10-23-2023 16:00-0500 Respiratory rate 18 /min Jaleesa Vanessa Other [employer] Other 10-23-2023 16:00-0500 SaO2% (BldA) [Mass fraction] 99 % Jaleesa Vanessa Other [employer] Other 10-23-2023 16:00-0500 Systolic blood pressure 124 mm[Hg] Jaelesa Vanessa Other [employer] Other 10-18-2023 13:45-0500 Body height 165.1 cm Shantel Steven Other [employer] Other 10-18-2023 13:45-0500 Body mass index (BMI) [Ratio] 44.86 kg/m2 Shantel Steven Other [employer] Other 10-18-2023 13:45-0500 Body temperature 97.3 [degF] Shantel Steven Other [employer] Other 10-18-2023 13:45-0500 Body weight 122.29 kg Shantel Steven Other [employer] Other 10-18-2023 13:45-0500 Diastolic blood pressure 84 mm[Hg] Shantel Steven Other [employer] Other 10-18-2023 13:45-0500 SaO2% (BldA) [Mass fraction] 97 % Shantel Steven Other [employer] Other 10-18-2023 13:45-0500 Systolic blood pressure 132 mm[Hg] Shantel Steven Other [employer] Other 09-04-2023 14:00-0400 Body height 165.1 cm Shantel Steven Other [employer] Other 09-04-2023 14:00-0400 Body mass index (BMI) [Ratio] 43.06 kg/m2 Shantel Steven Other [employer] Other 09-04-2023 14:00-0400 Body weight 117.39 kg Shantel Steven Other [employer] Other 09-04-2023 14:00-0400 Diastolic blood pressure 69 mm[Hg] Shantel Steven Other [employer] Other 09-04-2023 14:00-0400 Systolic blood pressure 127 mm[Hg] Shantel Steven Other [employer] Other 07-17-2023 10:00-0400 Body height 165.1 cm Shantel Steven Other [employer] Other 07-17-2023 10:00-0400 Body mass index (BMI) [Ratio] 43.03 kg/m2 Shantel Steven Other [employer] Other 07-17-2023 10:00-0400 Body weight 117.3 kg Shantel Steven Other [employer] Other 07-17-2023 10:00-0400 Diastolic blood pressure 76 mm[Hg] Shantel Steven Other [employer] Other 07-17-2023 10:00-0400 Systolic blood pressure 164 mm[Hg] Shantel Steven Other [employer] Other 04-30-2023 14:30-0400 Body height 165.1 cm Shantel Steven Other [employer] Other 04-30-2023 14:30-0400 Body mass index (BMI) [Ratio] 43.43 kg/m2 Shantel Steven Other [employer] Other 04-30-2023 14:30-0400 Body weight 118.39 kg Shantel Steven Other [employer] Other 04-30-2023 14:30-0400 Diastolic blood pressure 75 mm[Hg] Shantel Steven Other [employer] Other 04-30-2023 14:30-0400 Systolic blood pressure 135 mm[Hg] Shantel Steven Other [employer] Other 03-09-2023 12:15-0400 Body height 165.1 cm Shantel Steven Other [employer] Other 03-09-2023 12:15-0400 Body mass index (BMI) [Ratio] 43.59 kg/m2 Shantel Steven Other [employer] Other 03-09-2023 12:15-0400 Body weight 118.84 kg Shantel Steven Other [employer] Other 03-09-2023 12:15-0400 Diastolic blood pressure 82 mm[Hg] Shantel Steven Other [employer] Other 03-09-2023 12:15-0400 SaO2% (BldA) [Mass fraction] 97 % Shantel Steven Other [employer] Other 03-09-2023 12:15-0400 Systolic blood pressure 130 mm[Hg] Shantel Steven Other [employer] Other 02-20-2023 10:00-0400 Body height 165.1 cm Shantel Steven Other [employer] Other 02-20-2023 10:00-0400 Body mass index (BMI) [Ratio] 41.93 kg/m2 Shantel Steven Other [employer] Other 02-20-2023 10:00-0400 Body weight 114.31 kg Shantel Steven Other [employer] Other 02-20-2023 10:00-0400 Diastolic blood pressure 84 mm[Hg] Shantel Steven Other [employer] Other 02-20-2023 10:00-0400 Systolic blood pressure 132 mm[Hg] Shantel Steven Other [employer] Other 08-04-2022 13:33-0400 Blood Pressure Location [facility] [place] 08-04-2022 13:33-0400 Diastolic blood pressure 88 mm[Hg] [facility] [place] 08-04-2022 13:33-0400 Heart rate 76 /min [facility] [place] 08-04-2022 13:33-0400 Respiratory rate 16 /min [facility] [place] 08-04-2022 13:33-0400 Systolic blood pressure 130 mm[Hg] [facility] 08-25-2021 14:30-0400 Body height 165.1 cm Akbar Cui II Other [employer] Other 08-25-2021 14:30-0400 Body mass index (BMI) [Ratio] 43.26 kg/m2 Akbar Cui II Other [facility] [email or web address] Other 08-25-2021 14:30-0400 Body weight 117.94 kg Akbar Cui II Other [employer] [facility] [email or web address] Other Encounters Encounter Date Encounter Type Care Provider Facility Start: 01-21-2025 End: 01-21-2025 ambulatory Shantel Steven MD Work Phone: [facility] Work Phone: Start: 01-21-2025 End: 01-21-2025 Patient encounter procedure Shantel Steven MD Work Phone: [facility] Work Phone: Start: 01-14-2025 End: 01-14-2025 ambulatory Shantel Steven MD Work Phone: [facility] Work Phone: Start: 01-14-2025 End: 01-14-2025 Patient encounter procedure Shantel Steven MD Work Phone: [facility] Work Phone: Start: 01-07-2025 End: 01-07-2025 Telephone encounter Christel Chacon MD Work Phone: [facility] Comment on above: referral to Dr Estrada baer Start: 01-06-2025 End: 01-06-2025 Patient encounter procedure Shantel Steven MD Work Phone: [facility] Work Phone: Start: 01-06-2025 End: 01-06-2025 Telephone encounter Christel Chacon MD Work Phone: [facility] Comment on above: sleep study appt Start: 12-26-2024 End: 12-26-2024 ambulatory oJrge Luis Zavala DO Work Phone: [facility] Work Phone: Start: 12-26-2024 End: 12-26-2024 Patient encounter procedure Jorge Luis Zavala DO Work Phone: [facility] Work Phone: Start: 12-18-2024 End: 12-18-2024 ambulatory FRANCHESCA E STU Facility:[facility] Start: 12-18-2024 End: 12-18-2024 Patient encounter procedure FRANCHESCA Alvarado STU [facility] Start: 12-09-2024 End: 12-09-2024 Patient encounter procedure Jorge uLis Zavala DO Work Phone: [facility] Work Phone: Start: 12-08-2024 Non-patient / Non-visit Oni k Tupa DO Work Phone: [facility] Work Phone: Start: 12-08-2024 End: 12-08-2024 ambulatory FRANCHESCA Jenny STU Facility:[facility] Start: 12-08-2024 End: 12-08-2024 Patient encounter procedure FRANCHESCA PERAZA [facility] Start: 12-04-2024 Non-patient / Non-visit Oni k Tupa DO Work Phone: [facility] Work Phone: Start: 12-04-2024 Non-patient / Non-visit Oni k Tupa DO Work Phone: [facility] Work Phone: Start: 12-02-2024 End: 12-02-2024 ambulatory [facility] Start: 11-13-2024 End: 11-13-2024 ambulatory FRANCHESCA Jenny PERAZA Facility:[facility] [place] Start: 11-13-2024 End: 11-13-2024 Patient encounter procedure FRANCHESCA PERAZA [facility] [place] Start: 11-11-2024 End: 11-11-2024 Patient encounter procedure Jorge Luis Camragopa DO Work Phone: [facility] Work Phone: Start: 11-10-2024 Non-patient / Non-visit Oni miranda Tupa DO Work Phone: [facility] Work Phone: Start: 11-06-2024 ambulatory FRANCHESCA Jenny PERAZA Facili ty:[facility] [place] Start: 11-04-2024 End: 11-04-2024 ambulatory FRANCHESCA Jenny PERAZA Facility:[facility] [place] Start: 11-04-2024 End: 11-04-2024 Patient encounter procedure FRANCHESCA PERAZA [facility] [place] Start: 11-03-2024 End: 11-03-2024 Patient encounter procedure Jorge Luis Zavala DO Work Phone: [facility] Work Phone: Start: 10-31-2024 ambulatory [facility] Start: 10-25-2024 End: 10-25-2024 Emergency department patient visit Daniele Jane Facility:[facility] Start: 10-24-2024 Non-patient / Non-visit Oni k Tupa DO Work Phone: [facility] Work Phone: Start: 10-22-2024 End: 10-22-2024 Emergency department patient visit Zhang Norwood Facility:[facility] Start: 10-21-2024 Non-patient / Non-visit Onipamlea Camargopa DO Work Phone: [facility] Work Phone: Start: 10-17-2024 Non-patient / Non-visit Onipamela Camargopa DO Work Phone: [facility] Work Phone: Start: 10-17-2024 Non-patient / Non-visit Oni k Tupa DO Work Phone: [facility] Pulmonary Work Phone: Start: 10-16-2024 Non-patient / Non-visit Onipamela Camargopa DO Work Phone: [facility] Work Phone: Start: 10-16-2024 End: 10-20-2024 Evaluation and management of inpatient Kavin Escobar Facility:[facility] Start: 10-08-2024 End: 10-08-2024 ambulatory [facility] Start: 10-01-2024 End: 10-01-2024 Juliette Chacon MD [...] Oni k Tupa DO Work Phone: [facility] Work Phone: Start: 09-26-2024 End: 09-30-2024 Telephone encounter Christel Chacon MD Work Phone: [facility] Start: 09-03-2024 ambulatory [facility] Start: 08-20-2024 End: 08-20-2024 ambulatory [facility] Start: 08-07-2024 End: 08-07-2024 ambulatory MD Shantel Steven Work Phone: [facility] Work Phone: Start: 08-07-2024 End: 08-07-2024 Patient encounter procedure MD Shantel Steven Work Phone: [facility] Work Phone: Start: 07-30-2024 Non-patient / Non-visit MD Alessia Steven Work Phone: [facility] Work Phone: Start: 07-25-2024 Non-patient / Non-visit MD Alessia Steven Work Phone: [facility] Work Phone: Start: 07-24-2024 Non-patient / Non-visit MD Alessia Steven Work Phone: [facility] Work Phone: Start: 07-22-2024 End: [...] encounter procedure MD Shantel Steven Work Phone: [facility] Work Phone: Start: 07-17-2024 End: 07-17-2024 ambulatory MD Shantel Steven Work Phone: [facility] Work Phone: Start: 07-17-2024 End: 07-17-2024 Departed Referred MD Shantel Steven Work Phone: [facility] [place] Work Phone: Start: 07-17-2024 End: 07-17-2024 MD Shantel Steven Work Phone: [facility] Work Phone: Start: 07-16-2024 End: 07-16-2024 ambulatory MD Shantel Steven Work Phone: [facility] Work Phone: Start: 07-16-2024 End: 07-16-2024 Patient encounter procedure MD Shantel Steven Work Phone: [facility] Work Phone: Start: 07-16-2024 End: 07-16-2024 MD Shantel Steven Work Phone: [facility] Work Phone: Start: 07-15-2024 End: 07-15-2024 Non-patient / Non-visit MD Shantel Steven Work Phone: [facility] Work Phone: Start: 07-15-2024 Non-patient / Non-visit MD Alessia Steven Work Phone: [facility] Work Phone: Start: 07-15-2024 MD Shantel Bajwa n Work Phone: [facility] Work Phone: Start: 07-14-2024 Non-patient / Non-visit MD Alessia Steven Work Phone: [facility] Work Phone: Start: 07-14-2024 MD Shantel Bajwa n Work Phone: [facility] Work Phone: Start: 07-10-2024 End: 07-10-2024 Bamboo flowsheet Lizett Salaz[employer]or [employer] Work Phone: [employer] Start: 07-10-2024 End: 07-10-2024 Bamboo flowsheet Lizett Mariemor [employer] Work Phone: [employer] Start: 07-10-2024 End: 07-10-2024 Office outpatient visit 25 minutes Lizett Mariemor [employer] Work Phone: [employer] Comment on above: Essential tremor (Pr imary Dx); Diabetic polyneuropathy associated with type 2 diabetes mellitus ([facility]/HCC); Balance disorder; Sensory ataxia; Debility; Weakness; Paresthesias Start: 07-10-2024 End: 07-10-2024 ambulatory LIZETT GILLMOR Not Available Start: 07-07-2024 End: 07-07-2024 ambulatory MD Shantel Setven Work Phone: [facility] Work Phone: Start: 07-07-2024 End: 07-07-2024 Patient encounter procedure MD Shantel Steven Work Phone: [facility] Work Phone: Start: 07-07-2024 End: 07-07-2024 MD Shantel Steven Work Phone: [facility] Work Phone: Start: 06-25-2024 ambulatory MD Shantel gray Work Phone: [facility] Work Phone: Start: 06-25-2024 Non-patient / Non-visit MD Alessia Steven Work Phone: [facility] Work Phone: Start: 06-25-2024 MD Shantel painting Work Phone: [facility] Work Phone: Start: 06-24-2024 Non-patient / Non-visit MD Alessia Steven Work Phone: [facility] Work Phone: Start: 06-24-2024 MD Shantel painting Work Phone: [facility] Work Phone: Start: 06-18-2024 End: 06-18-2024 ambulatory [facility] Start: 06-16-2024 End: 06-16-2024 ambulatory MD Shantel Steven Work Phone: [facility] Work Phone: Start: 06-16-2024 End: 06-16-2024 Patient encounter procedure MD Shantel Steven Work Phone: [facility] Work Phone: Start: 06-16-2024 End: 06-16-2024 MD Shantel Steven Work Phone: [facility] Work Phone: Start: 06-10-2024 Non-patient / Non-visit MD Alessia Steven Work Phone: [facility] Work Phone: Start: 06-10-2024 MD Shantel painting Work Phone: [facility] Work Phone: Start: 06-09-2024 Non-patient / Non-visit MD Alessia Steven Work Phone: [facility] Work Phone: Start: 06-09-2024 MD Shantel painting Work Phone: [facility] Work Phone: Start: 06-05-2024 End: 06-05-2024 ambulatory MD Shantel Steven Work Phone: [facility] Work Phone: Start: 06-05-2024 End: 06-05-2024 Patient encounter procedure MD Shantel Steven Work Phone: [facility] [place] Work Phone: Start: 06-05-2024 End: 06-05-2024 MD Shantel Steven Work Phone: [facility] [place] Work Phone: Start: 06-01-2024 Non-patient / Non-visit MD Alessia Steven Work Phone: [facility] Work Phone: Start: 06-01-2024 MD Shantel painting Work Phone: [facility] Work Phone: Start: 05-26-2024 Non-patient / Non-visit MD Alessia Steven Work Phone: [facility] Work Phone: Start: 05-26-2024 MD Shantel painting Work Phone: [facility] Work Phone: Start: 05-22-2024 End: 05-22-2024 Emergency department patient visit MD Shantel Steven Work Phone: [facility] Work Phone: Start: 05-22-2024 End: 05-22-2024 MD Shantel Steven Work Phone: [facility] Work Phone: Start: 05-20-2024 Non-patient / Non-visit MD Alessia Steven Work Phone: [facility] Work Phone: Start: 05-20-2024 MD Shantel painting Work Phone: [facility] Work Phone: Start: 05-20-2024 End: 05-20-2024 ambulatory [facility] Start: 05-19-2024 End: 05-19-2024 ambulatory MD Shantel Steven Work Phone: [facility] Work Phone: Start: 05-19-2024 End: 05-19-2024 Patient encounter procedure MD Shantel Steven Work Phone: [facility] Work Phone: Start: 05-19-2024 End: 05-19-2024 MD Shantel Steven Work Phone: [facility] Work Phone: Start: 05-07-2024 End: 05-07-2024 ambulatory MD Shantel Steven Work Phone: [facility] Work Phone: Start: 05-07-2024 End: 05-07-2024 Patient encounter procedure MD Shantel Steven Work Phone: [facility] Work Phone: Start: 05-07-2024 End: 05-07-2024 MD Shantel Steven Work Phone: [facility] Work Phone: Start: 05-06-2024 Non-patient / Non-visit MD Alessia Steven Work Phone: [facility] Work Phone: Start: 05-06-2024 MD Shantel painting Work Phone: [facility] Work Phone: Start: 05-05-2024 Non-patient / Non-visit MD Alessia Steven Work Phone: [facility] Work Phone: Start: 05-05-2024 MD Shantel painting Work Phone: [facility] Work Phone: Start: 05-04-2024 End: 05-06-2024 Non-patient / Non-visit MD Shantel Steven Work Phone: [facility] Work Phone: Start: 05-04-2024 End: 05-06-2024 MD Shantel Steven Work Phone: [facility] Work Phone: Start: 05-04-2024 Non-patient / Non-visit MD Alessia Steven Work Phone: [facility] Work Phone: Start: 05-04-2024 MD Shantel painting Work Phone: [facility] Work Phone: Start: 05-02-2024 Non-patient / Non-visit MD Alessia Steven Work Phone: [facility] Work Phone: Start: 05-02-2024 MD Shantel painting Work Phone: [facility] Work Phone: Start: 05-01-2024 Non-patient / Non-visit MD Alessia Steven Work Phone: [facility] Work Phone: Start: 05-01-2024 MD Shantel painting Work Phone: [facility] Work Phone: Start: 04-30-2024 Non-patient / Non-visit MD Alessia Steven Work Phone: [facility] Work Phone: Start: 04-30-2024 MD Shantel painting Work Phone: [facility] Work Phone: Start: 04-30-2024 Non-patient / Non-visit MD Alessai Steven Work Phone: [facility] Work Phone: Start: 04-30-2024 MD Shantel painting Work Phone: [facility] Work Phone: Start: 04-29-2024 End: 04-29-2024 Patient encounter procedure MD Shatnel Steven Work Phone: [facility] Work Phone: Start: 04-29-2024 End: 04-29-2024 MD Shantel Steven Work Phone: [facility] Work Phone: Start: 04-03-2024 End: 04-03-2024 ambulatory MD Shantel Steven Work Phone: [facility] Work Phone: Start: 04-03-2024 End: 04-03-2024 Patient encounter procedure MD Shantel Steven Work Phone: [facility] Work Phone: Start: 04-03-2024 End: 04-03-2024 MD Shantel Steven Work Phone: [facility] Work Phone: Start: 04-01-2024 Non-patient / Non-visit MD Alessia Steven Work Phone: [facility] Work Phone: Start: 04-01-2024 MD Shantel painting Work Phone: [facility] Work Phone: Start: 03-31-2024 Non-patient / Non-visit MD Alessia Steven Work Phone: [facility] Work Phone: Start: 03-31-2024 MD Shantel painting Work Phone: [facility] Work Phone: Start: 03-28-2024 Non-patient / Non-visit MD Alessia Steven Work Phone: [facility] Work Phone: Start: 03-28-2024 MD Shantel painting Work Phone: [facility] Work Phone: Start: 03-27-2024 Non-patient / Non-visit MD Alessia Steven Work Phone: [facility] Work Phone: Start: 03-27-2024 MD Shantel painting Work Phone: [facility] Work Phone: Start: 03-26-2024 Non-patient / Non-visit MD Alessia Steven Work Phone: [facility] Work Phone: Start: 03-26-2024 MD Shantel painting Work Phone: [facility] Work Phone: Start: 03-25-2024 End: 03-25-2024 Patient encounter procedure MD Shantel Steven Work Phone: [facility] Work Phone: Start: 03-25-2024 End: 03-25-2024 MD Shantel Steven Work Phone: [facility] Work Phone: Start: 03-13-2024 End: 03-13-2024 Patient encounter procedure MD Shantel Steven Work Phone: [facility] [address] Work Phone: Start: 03-13-2024 End: 03-13-2024 ambulatory MD Shantel Steven Work Phone: [facility] Work Phone: Start: 03-07-2024 End: 03-07-2024 ambulatory [facility] Start: 02-19-2024 ambulatory FRANCHESCA CUELLARRY Facility :[facility] Start: 02-15-2024 End: 02-15-2024 ambulatory [facility] Work Phone: Start: 02-15-2024 End: 02-15-2024 Patient encounter procedure [facility] Work Phone: Start: 01-29-2024 Non-patient / Non-visit [facility] Work Phone: Start: 01-24-2024 Non-patient / Non-visit [facility] Work Phone: Start: 01-22-2024 Non-patient / Non-visit [facility] [employer] Work Phone: Start: 01-18-2024 End: 01-18-2024 Patient encounter procedure [facility] Physician [facility] Work Phone: Start: 01-15-2024 Non-patient / Non-visit [facility] Physician [facility] [employer] Work Phone: Start: 01-04-2024 Non-patient / Non-visit [facility] Physician [facility] [employer] Work Phone: Start: 12-18-2023 End: 12-18-2023 ambulatory Shantel Steven Other [employer] Other Start: 12-18-2023 Telephone encounter Shantel Steven [facility] Start: 11-19-2023 End: 11-19-2023 ambulatory Shantel Steven Other [employer] Other Start: 11-19-2023 Telephone encounter Shantel Steven [facility] Start: 10-23-2023 End: 10-23-2023 ambulatory Aziz Bakhous Other [employer] Other Start: 10-23-2023 Office outpatient ne w 30 minutes Aziz Bakhous [facility] [place] Start: 10-22-2023 End: 10-22-2023 ambulatory Shantel Steven Other [employer] Other Start: 10-22-2023 Telephone encounter Shantel Steven [facility] Start: 10-18-2023 End: 10-18-2023 ambulatory Shantel Steven Other [employer] Other Start: 10-18-2023 Office outpatient vi sit 15 minutes Shantel Steven [facility] Start: 09-07-2023 End: 09-07-2023 ambulatory Shantel Steven Other [employer] Other Start: 09-07-2023 Telephone encounter Shantel Steven [facility] Start: 09-04-2023 End: 09-04-2023 ambulatory Shantel Steven Other [employer] Other Start: 09-04-2023 Office outpatient vi sit 25 minutes Shantel Steven [facility] Start: 08-23-2023 End: 08-23-2023 ambulatory Shantel Steven Other [employer] Other Start: 08-23-2023 Telephone encounter Shantel Tenisha [facility] Start: 07-23-2023 End: 07-23-2023 ambulatory Shantel Steven Other [employer] Other Start: 07-23-2023 Telephone encounter Shantel Tenisha [facility] Start: 07-17-2023 End: 07-17-2023 ambulatory Shantel Steven Other [employer] Other Start: 07-17-2023 Office outpatient vi sit 25 minutes Shantel Tenisha [facility] Start: 05-30-2023 End: 05-30-2023 ambulatory Shantel Steven Other [employer] Other Start: 05-30-2023 Telephone encounter Shantel Steven [facility] Start: 05-22-2023 End: 05-22-2023 ambulatory Shantel Steven Other [employer] Other Start: 05-22-2023 Telephone encounter Shantel Steven [facility] Start: 05-16-2023 End: 05-16-2023 ambulatory Shantel Steven Other [employer] Other Start: 05-16-2023 Telephone encounter Shantel Steven [facility] Start: 05-07-2023 End: 05-07-2023 ambulatory Shantel Steven Other [employer] Other Start: 05-07-2023 Telephone encounter Shantel Steven [facility] Start: 04-30-2023 End: 04-30-2023 ambulatory Shantel Steven Other [employer] Other Start: 04-30-2023 Office outpatient vi sit 25 minutes Shantel Steven [facility] Start: 04-25-2023 End: 04-25-2023 ambulatory Shantel Steven Other [employer] Other Start: 04-25-2023 Telephone encounter Shantel Steven [facility] Start: 04-12-2023 End: 04-12-2023 ambulatory Shantel Steven Other [employer] Other Start: 04-12-2023 Telephone encounter Shantel Steven [facility] Start: 03-09-2023 End: 03-09-2023 ambulatory Shantel Steven Other [employer] Other Start: 03-09-2023 Office outpatient vi sit 15 minutes Shantel Steven [facility] Start: 03-07-2023 End: 03-07-2023 ambulatory Shantel Steven Other [employer] Other Start: 03-07-2023 Telephone encounter Shantel Steven [facility] Start: 03-06-2023 End: 03-06-[address] SHANTEL STEVEN Facility:[facility] Start: 03-05-2023 End: 03-05-2023 ambulatory Shantel Steven Other [employer] Other Start: 03-05-2023 Telephone encounter Shantel Steven [facility] Start: 02-26-2023 End: 02-26-2023 ambulatory Shantel Steven Other [employer] Other Start: 02-26-2023 Telephone encounter Shantel Steven [facility] Start: 02-24-2023 End: 02-24-[address] SHANTEL STEVEN Facility:[facility] Start: 02-23-2023 End: 02-23-2023 ambulatory Shantel Steven Other [employer] Other Start: 02-23-2023 Telephone encounter Shantel Steven [facility] Start: 02-20-2023 End: 02-20-2023 ambulatory Shantel Steven Other [employer] Other Start: 02-20-2023 Transitional care luz misha srvc 14 day discharge Shantel Steven [facility] Start: 02-16-2023 End: 02-16-2023 ambulatory Shantel Steven Other [employer] Other Start: 02-16-2023 Telephone encounter Shantel Steven [facility] Start: 02-13-2023 End: 02-14-[address] SHANTEL STEVEN Facility:[facility] Start: 02-02-2023 End: 02-02-2023 ambulatory Shantel Steven Other [employer] Other Start: 02-02-2023 Telephone encounter Shantel Steven [facility] Start: 01-16-2023 End: 01-17-[address] DOCTOR CARMONA Facility:[facility] Start: 01-05-2023 End: 01-05-2023 ambulatory BIN ROJAS Facility:[facility] Start: 01-01-2023 End: 01-02-2023 ambulatory ANALISA BRYANT Facility:[facility] Start: 11-29-2022 End: 11-29-2022 ambulatory Shantel Steven Other [employer] Other Start: 11-29-2022 Telephone encounter Shantel Steven [facility] Start: 11-27-2022 End: 11-27-2022 ambulatory Shantel Steven Other [employer] Other Start: 11-27-2022 Telephone encounter Shantel Steven [facility] Start: 11-24-2022 End: 11-24-2022 ambulatory Shantel Steven Other [employer] Other Start: 01-13-2023 Telephone encounter Shantel Steven [facility] Start: 11-06-2022 ambulatory YAMEL MCCRACKEN Facility :[facility] Start: 09-15-2022 End: 09-16-[address] SHANTEL STEVEN Facility:[facility] Start: 08-04-2022 End: 08-04-2022 Patient encounter procedure Bin SORENSON [facility] Start: 05-02-2022 End: 05-02-[address] SHANTEL STEVEN Facility:[facility] Start: 08-25-2021 Office outpatient ne w 45 minutes Akbar Cui II [facility] Start: 08-09-2017 End: 08-12-2017 Ambulatory PROVIDER UNKNOWN Facility:[facility] Procedures Date Procedure Procedure Detail [...] Activity Detail Author Start: 12-10-2024 Patient referral [facility] Work Phone: Start: 10-20-2024 [facility] Start: 10-16-2024 Consultation [facility] Start: 10-16-2024 Hospital admission [facility] Start: 10-16-2024 Referral to lan analyst [facility] Start: 10-16-2024 Drainage of Bladder with Drainage Device, Via Natural or Artificial Opening Drainage of Bladder with Drainage Device, Via Natural or Artificial Opening [facility] Start: 10-16-2024 Performance of Cardi ac Pacing, Continuous Performance of Cardiac Pacing, Continuous [facility] Start: 10-01-2024 End: 10-01-2024 Patient encounter procedure [facility] Comment on above: Arrived Start: 09-30-2024 End: 09-30-2024 Patient encounter procedure 09/30/2024 1:00 PM EST Office Visit [facility] [place] [address] [place] [phone] Wanda Patel DO [address] [place] [id number] [facility] [address] Start: 09-04-2024 End: 09-04-2024 Patient encounter procedure 09/04/2024 1:20 PM EDT Office Visit [facility] [place] [address] [place] [phone] Lizett Jacinto NP [address] [place], [place] [facility] [place] [address] Start: 07-22-2024 End: 07-22-2024 Patient encounter procedure 07/22/2024 1:10 PM EDT Office Visit [facility] [address] [place] [phone] Christel Chacon MD [address] [place] [address] Arrived [facility] Comment on above: Arrived Start: 07-17-2024 Bacteria identified in Urine by Culture [facility] Start: 07-17-2024 [facility] Start: 07-15-2024 End: 07-15-2024 Patient encounter procedure 07/15/2024 1:10 PM EDT Office Visit [facility] [address] [place] [id number] Christel Chacon MD [address] [place] [address] [facility] Start: 2024 Influenza vaccination Influenza Vacc ine (#1) [facility] Start: 07-10-2024 End: 07-10-2024 Patient encounter procedure 07/10/2024 1:40 PM EDT Office Visit [facility] [place] [address] [place] [address] Lizett Jacinto NP [address] [place], [place] Arrived [facility] [address] Comment on above: Arrived Start: 06-25-2024 Patient referral [facility] Work Phone: Start: 06-16-2024 Patient referral [facility] Work Phone: Start: 05-07-2024 Patient referral [facility] Work Phone: Start: 05-04-2024 Blood Culture 1 Blood Culture 1 [facility] Start: 02-15-2024 Patient referral [facility] Work Phone: Comprehensive metabo lic 2000 panel - Serum or Plasma [facility] CT Abdomen and Pelvi s WO contrast [facility] Microalbumin [Mass/volume] in Urine [facility] Patient Education [facility] Work Phone: Patient referral [facility] Work Phone: Renal function 1999 panel - Serum or Plasma [facility] Renal function 1999 panel - Serum or Plasma [facility] US [facility] Immunizations Immunization Date Immunization Notes Care Provider Fa cility 01-18-2024 Pneumococcal Conjugate Vaccine, 20 valent [facility] 09-04-2023 influenza, high dose seasonal, preservative-free Shantel Steven Other [employer] [facility] [email or web address] Other 09-04-2023 influenza virus vaccine, unspecified formulation [facility] 02-04-2021 COVID-19 mRNA, Comirnaty (Pfizer) [facility] 01-21-2021 COVID-19 mRNA, Comirnaty (Pfizer) [facility] 10-09-2018 influenza virus vaccine, split virus (incl. purified surface antigen) Shantel Steven Other [employer] Other 10-09-2018 influenza virus vaccine, unspecified formulation [facility] NEGATED: Highlighted row has not occurred!10-17-2024 influenza, high dose seasonal, preservative-free Jorge Luis Zavala DO Work Phone: [facility] NEGATED: Highlighted row has not occurred!08-21-2019 influenza virus vaccine, split virus (incl. purified surface antigen) Shantel Steven Other [employer] Other Payers Date Payer Category Payer Medicare [id number] 2024 Self-pay [id number] 2023 Medicare [employer] MEDICARE ADVANTAGE [facility] MEDICARE [id number] 2023-Present [address] [place] [id number] 2023 Medicare (Managed Care) [employer] EDICARE ADVANTAGE [id number] 1959 Medicare [id number] [id number] 1959 Self-pay [id number] 1945 Unknown [id number] 2.16.840.1.472635.3.579. 2.593 1946 Unknown [id number] 2.16840.1.326932.3.579. 2.593 1946 Unknown [id number] 2.16.840.1.762808.3.579. 2.593 1946 Unknown [id number] 2.16.840.1.187891.3.579. 2.593 1946 Unknown [id number] 2.16.840.1.049575.3.579. 2.593 1946 Unknown [id number] 2.16.840.1.458665.3.579. 2.593 1946 Unknown [id number] 2.16.840.1.365761.3.579. 2.593 1946 Unknown [id number] 2.16.840.1.923335.3.579. 2.593 1946 Unknown [id number] 2.16840.1.759312.3.579. 2.593 1946 Unknown [id number] 2.840.1.295305.3.579. 2.1259 1946 Unknown [id number] 2.16840.1.914321.3.579. 2.1259 1946 Unknown [id number] 2.16840.1.489389.3.579. 2.1259 1946 Unknown [id number] 2.16840.1.558820.3.579. 2.727 1946 Unknown [id number] 2.840.1.991629.3.579. 2.727 1946 Unknown [id number] 2.16.840.1.123316.3.579. 2.727 1946 Unknown [id number] 2.16.840.1.213118.3.579. 2.727 1946 Unknown [id number] 2.16.840.1.608500.3.579. 2.727 Unknown Unknown [id number] 2.16840.1.799295.3.579. 2.531 Unknown [id number] 2.16.840.1.583085.3.579. 2.531 Unknown [id number] 2.16.840.1.248526.3.579. 2.531 Unknown [id number] 2.16.840.1.741426.3.579. 2.531 Unknown [id number] 2.16.840.1.493613.3.579. 2.531 Unknown [id number] 2.16.840.1.566474.3.579. 2.531 Social History Date Type Detail Facility Start: 07-22-2024 End: 10-01-2024 Sex Assigned At [facility] [employer] Other Start: 08-04-2022 End: 10-25-2024 Tobacco smoking status Ex-smoker (finding) [facility] Tobacco smoking status Never [facility] [place] Start: 1945 Sex Assigned At Female F [facility] History of tobacco use Current smoker [facility] History of tobacco use Cigarette Smoker [facility] Start: 07-03-2024 Tobacco use and exposure Smokeless tobacco non-user [facility] Start: 07-22-2024 End: 10-01-2024 Alcoholic beverage intake Lifetime non-drinker (finding) [facility] Start: 07-22-2024 End: 10-01-2024 History of Social function [facility] Start: 07-08-2024 Alcohol Comment caffeine: 1-2 cups per day [facility] Start: 1945 Sex assigned at Not on file N [facility] Start: 12-26-2024 End: 01-21-2025 Sex Female (finding) [facility] Medical Equipment Procedure Code Equipment Code Equipment Origin al Text Equipment Identifier Dates Blood Sugar Diagnostic (True Metrix Glucose Test Strip) strip Start: 03-31-2024 Pen Needle, Diab etic (Comfort Ez Pen [place]) 33 gauge x 5/32 needle Start: 03-25-2024 Blood Sugar Diagnostic (True Metrix Glucose Test Strip) strip Start: 03-31-2024 End: 03-31-2024 Blood Sugar Diagnostic (True Metrix Glucose Test Strip) strip Start: 03-31-2024 Pen Needle, Diab etic (Comfort Ez Pen [place]) 33 gauge x 5/32 needle Start: 03-25-2024 Blood Sugar Diagnostic (True Metrix Glucose Test Strip) strip Start: 03-31-2024 End: 03-31-2024 Blood Sugar Diagnostic (True Metrix Glucose Test Strip) strip Start: 03-31-2024 Pen Needle, Diab etic (Comfort Ez Pen [place]) 33 gauge x 5/32 needle Start: 03-25-2024 Blood Sugar Diagnostic (True Metrix Glucose Test Strip) strip Start: 03-31-2024 End: 03-31-2024 Blood Sugar Diagnostic (True Metrix Glucose Test Strip) strip Start: 03-31-2024 Pen Needle, Diab etic (Comfort Ez Pen [place]) 33 gauge x 5/32 needle Start: 03-25-2024 Blood Sugar Diagnostic (True Metrix Glucose Test Strip) strip Start: 03-31-2024 End: 03-31-2024 Blood Sugar Diagnostic (True Metrix Glucose Test Strip) strip Start: 03-31-2024 Pen Needle, Diab etic (Comfort Ez Pen [place]) 33 gauge x 5/32 needle Start: 03-25-2024 Blood Sugar Diagnostic (True Metrix Glucose Test Strip) strip Start: 03-31-2024 End: 03-31-2024 Blood Sugar Diagnostic (True Metrix Glucose Test Strip) strip Start: 03-31-2024 Pen Needle, Diab etic (Comfort Ez Pen [place]) 33 gauge x 5/32 needle Start: 03-25-2024 Blood Sugar Diagnostic (True Metrix Glucose Test Strip) strip Start: 03-31-2024 End: 03-31-2024 Blood Sugar Diagnostic (True Metrix Glucose Test Strip) strip Start: 03-31-2024 Pen Needle, Diab etic (Comfort Ez Pen [place]) 33 gauge x 5/32 needle Start: 03-25-2024 Blood Sugar Diagnostic (True Metrix Glucose Test Strip) strip Start: 03-31-2024 End: 03-31-2024 Blood Sugar Diagnostic (True Metrix Glucose Test Strip) strip Start: 03-31-2024 Pen Needle, Diab etic (Comfort Ez Pen [place]) 33 gauge x 5/32 needle Start: 03-25-2024 Blood Sugar Diagnostic (True Metrix Glucose Test Strip) strip Start: 03-31-2024 End: 03-31-2024 Blood Sugar Diagnostic (True Metrix Glucose Test Strip) strip Start: 03-31-2024 Pen Needle, Diab etic (Comfort Ez Pen [place]) 33 gauge x 5/32 needle Start: 03-25-2024 Blood Sugar Diagnostic (True Metrix Glucose Test Strip) strip Start: 03-31-2024 End: 03-31-2024 Pen Needle, Diab etic (Comfort Ez Pen [place]) 33 gauge x 5/32 needle Start: 03-25-2024 Blood Sugar Diagnostic (True Metrix Glucose Test Strip) strip Start: 03-31-2024 End: 10-16-2024 Blood Sugar Diagnostic (True Metrix Glucose Test Strip) strip Start: 03-31-2024 End: 03-31-2024 Pen Needle, Diab etic (Comfort Ez Pen [place]) 33 gauge x 5/32 needle Start: 03-25-2024 Blood Sugar Diagnostic (True Metrix Glucose Test Strip) strip Start: 03-31-2024 End: 10-16-2024 Blood Sugar Diagnostic (True Metrix Glucose Test Strip) strip Start: 03-31-2024 End: 03-31-2024 Pen Needle, Diab etic (Comfort Ez Pen [place]) 33 gauge x 5/32 needle Start: 03-25-2024 Blood Sugar Diagnostic (True Metrix Glucose Test Strip) strip Start: 03-31-2024 End: 10-16-2024 Blood Sugar Diagnostic (True Metrix Glucose Test Strip) strip Start: 03-31-2024 End: 03-31-2024 Goals Date Patient Goal Desired Activity /State Functional Status Date Assessment Result Facility 11-04-2024 Functional Status N/A [facility] 10-20-2024 Functional status Patient at Baseline [facility] Work Phone: 08-04-2022 Functional Status N/A [facility] Mental Status Date Assessment Result Facility 10-20-2024 Cognitive function Cognitive Sta tus Patient at Baseline [facility] Work Phone: Clinical Notes 08-25-2021 to 01-07-2025 Telephone Encounter - Christel Chacon MD - 01/07/2025 12:08 PM ESTTelephone Encounter - Christel Chacon MD - 01/07/2025 12:08 PM ESTTelephone Encounter - Jeanne Chacon - 01/07/2025 11:26 AM EST Note Date & Type Note Facility 01-07-2025 Telephone encounter Note prn [facility] 01-07-2025 Miscellaneous Notes prn Called pt/spoke with spouse/he said she does not want to schedule with Dr Hurd/if she changes her mind she will call us back. documented in this encounter [facility] 01-07-2025 Telephone encounter Note Called pt/spoke with spouse/he said she does not want to schedule with Dr Hurd/if she changes her mind she will call us back. [facility] 01-06-2025 Telephone encounter Note Left a message for pt to call Dr Chacon's office back to see if pt is planning on scheduling with Dr Hurd for sleep study. [facility] 01-06-2025 Miscellaneous Notes Left a message for pt to call Dr Chacon's office back to see if pt is planning on scheduling with Dr Hurd for sleep study. documented in this encounter [facility] 12-02-2024 Note Cardiovascular Medic in[facility] SUBJECTIVE Patient is here today for [...] postchemotherapy and radiation She was recently in [facility] 10/16/2024, she presented with fatigue, lightheadedness [...] few months. Patient here for follow up [facility]. Her diuretic was switched again back [...] Oz of fluid a day per the lan analyst. Her most recent discharge on 07/25/24 she [...] noticed occasional horsen (more content not included)... [facility] 11-04-2024 Hospital Discharg e instructions Patient Education [...] Follow these instructions at home: Medicines Take pcul-cbs-ysxrobe and prescription medicines only as told by [...] provider. Document Revised: 07/20/2021 Document Reviewed: 07/20/2021 [employer] Patient Education 2023 [employer]. Follow Up Care 10/20/2024 13:37:01 With:FRANCHESCA PERAZA, TIRSOL Address: [place] [address] [place] [address] Business (1) When:6 weeks [facility] 11-04-2024 Note Patient Education Obstetrics and [...] these instructions at home: Medicines ??? Take lhkz-vnq-rxmdztq and prescription medicines only as told by [...] provider. Document Revised: 07/20/2021 Document Reviewed: 07/20/2021 [employer] Patient Education ? 2023 [employer]. [facility] 11-03-2024 Evaluation note Diagnosis Onset Date [...] current use of acute uar 2024 3:21pm [facility] Work Phone: 1(284) 985-459612-23-2024 Evaluation note* Diagnosis Onset Date Resolution Status [...] use of acute January 14, 2025 10:00am [facility] Work Phone: 1(761) 520-853012-20-2024 NoteCardiovascular Medicine [facility] SUBJECTIVE Patient is here today for hospital follow-up. She was in [facility] with bradycardia. HPI 10/31/2024 Joe Call is a 79 y.o. female here for follow-up. Patient has history of HFpEF, paroxysmal atrial fibrillation, hypertension, diabetes mellitus type 2, chronic kidney disease, remote history of breast cancer status postchemotherapy and radiation She was recently in [facility] 10/16/2024, she presented with fatigue, lightheadedness [...] few months. Patient here for follow up [facility]. Her diuretic was switched again back [...] Oz of fluid a day per the lan analyst. Her most recent discharge on 07/25/24 she [...] pain Depressive disorder Diabe (more content not included)...[facility] 10-16-2024 Evaluation note* Diagnosis Onset Date Resolution [...] disease acu te December 09, 2024 1:24pm [facility] Work Phone: 1(419) 893-477811-27-2024 NoteCardiovascular Medicine [facility] SUBJECTIVE Chief Complaint Patient presents [...] few months. Patient here for follow up [facility]. Her diuretic was switched again back [...] Oz of fluid a day per the lan analyst. Her most recent discharge on 07/25/24 she [...] deficiency Lymphedema of left arm Morbid obesity ([facility]) Obstructive sleep apnea syndrome Paroxysmal supraventricular tachycardia ([facility]) Psoriasis Type 2 diabetes mellitus without complication ([facility]) Mixed hyperlipidemia Diastolic dysfunction Carotid bruit Chronic diarrhea Chronic low back pain Depressive disorder Diabetes mellitus ([facility]) Diabetic neuropathy ([facility]) Exocrine pancreatic insufficiency Gastroesophageal reflux disease Hypertension Hypomagnesemia Hypothyroidism Stage 3 chronic kidney disease ([facility]) Hyperlipidemia Atrial fibrillation ([facility]) Paroxysmal atrial fibrillation ([facility]) Abdominal swelling, generalized Acute on chronic diastolic CHF (congestive heart failure) ([facility]) Anxiety Back pain with history of spinal surgery Cervical disc disease Chalazion of right eye Dyspnea Hordeolum externum (stye) Immunization due Lactose intolerance rn long term care (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 insulin ([facility]) Lumbar degenerative disc disease Lumbar spondylosis Lymph edema Macular degeneration Memory changes Osteoarthritis Secondary hyperparathyroidism ([facility]) Stress incontinence of urine Thrush of mouth and esophagus ([facility]) Urinary incontinence UTI (urinary tract infection) Yeast cystitis CARMELO (acute kidney injury) ([facility]) Tremor Acquired hammer toe of right foot Ataxia Balance disorder CHF (congestive heart failure) ([facility]) Dehydration Diabetic foot ([facility]) Diabetic peripheral neuropathy associated with type 2 diabetes mellitus ([facility]) Disability of walking Essential tremor LPRD (laryngopharyngeal reflux disease) Mass of right axilla Paresthesia Throat tightness Type 2 diabetes mellitus with hyperglycemia, with long-term current use of insulin ([facility]) Venous insufficiency (chronic) (peripheral) Debility Past Medical History: Diagnosis Date Atrial fibrillation ([facility]) Cancer ([facility]) Carotid artery stenosis Coronary (more content not included)...[facility] 10-08-2024 NotePatient here for 1 mo follow [...] tremors. All other systems reviewed and are negative.[facility] 10-01-2024 History of Present illness Narrative* Christel [...] on chronic diastolic CHF (congestive heart failure) ([facility]) 05/20/2024 CARMELO (acute kidney injury) ([facility]) 05/20/2024 Anxiety 05/20/2024 Aortic valve disorder 08/20/2012 Back pain with history of spinal surgery 05/20/2024 Benign essential hypertension ([facility]) 04/02/2012 Carotid artery stenosis 07/20/2022 Carotid bruit 01/16/2023 Cervical disc disease 05/20/2024 Chalazion of right eye 05/20/2024 Chronic diarrhea 01/16/2023 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 Chronic low back pain 01/16/2023 Coronary atherosclerosis ([facility]) 03/20/2012 Depressive disorder ([facility]) 01/16/2023 Diabetes mellitus ([facility]) 07/03/2024 Diabetic foot ([facility]) 07/03/2024 Diabetic neuropathy ([facility]) 01/16/2023 Diabetic peripheral neuropathy associated with type 2 diabetes mellitus ([facility]) 07/03/2024 Diastolic dysfunction 09/05/2022 Disability of walking 07/03/2024 Diverticulitis of colon 03/20/2012 Dyspnea 05/20/2024 Exocrine pancreatic insufficiency ([facility]) 01/16/2023 Gastroesophageal reflux disease 01/16/2023 History of malignant neoplasm of breast 03/20/2012 Hordeolum externum (stye) 05/20/2024 Hyperlipidemia ([facility]) 07/03/2024 Hypertension ([facility]) 01/16/2023 Near syncope 07/03/2024 Hypomagnesemia 01/16/2023 Hypothyroidism ([facility]) 01/16/2023 Lumbar degenerative disc disease 05/20/2024 Lumbar spondylosis 05/20/2024 Lymph edema 05/20/2024 Lymphedema of left arm 03/20/2012 Macular degeneration 05/20/2024 Memory changes 05/20/2024 Morbid obesity ([facility]) 07/20/2022 Obstructive sleep apnea syndrome 03/20/2012 Paroxysmal atrial fibrillation ([facility]) 03/20/2012 Paroxysmal supraventricular tachycardia ([facility]) 03/26/2012 Psoriasis ([facility]) 03/20/2012 Secondary hyperparathyroidism ([facility]) 05/20/2024 Stage 3 chronic kidney disease (HCC) ([facility]) 01/16/2023 Hypertensive chronic kidney disease with stage 1 through stage 4 chronic kidney disease, or unspecified chronic kidney disease ([facility]) 07/03/2024 Thrush of mouth and esophagus ([facility]) 05/20/2024 Tremor 06/18/2024 Type 2 diabetes mellitus with hyperglycemia, with long-term current use of insulin ([facility]) 07/03/2024 Venous insufficiency (chronic) (peripheral) 07/03/2024 Essential tremor 07/08/2024 Balance disorder 07/08/2024 Ataxia 07/08/2024 Diabetic peripheral neuropathy ([facility]) 07/08/2024 Paresthesia 07/08/2024 Sensory ataxia 07/10/2024 Debility 07/10/2024 Weakness 07/10/2024 Paresthesias 07/10/2024 JED (obstructive sleep apnea) 07/22/2024 LPRD (laryngopharyngeal reflux disease) 07/22/2024 Throat tightness 07/22/2024 Resolved Ambulatory Problems Diagnosis Date Noted Acute pain of left shoulder 07/03/2024 Lactose intolerance 05/20/2024 halfway (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 insulin ([facility] 05/20/2024 Pharyngitis 07/03/2024 CKD (chronic kidney disease), stage IV ([facility]) 07/03/2024 Stress incontinence of urine 05/20/2024 Urinary incontinence 05/20/2024 UTI (urinary tract infection) 05/20/2024 Yeast cystitis 05/20/2024 Past Medical History: Diagnosis Date Anemia Breast cancer ([facility]) Coronary heart disease ([facility]) Diverticulosis GERD (gastroesophageal reflux disease) SD (myocardial infarction) ([facility]) Myocardial infarction ([facility]) Type II diabetes mellitus ([facility]) Past Surgical History: Procedure Laterality Date APPENDECTOMY [...] I will call pt. documented in this encounterPemiscot Memorial Health [id number] Telephone encounter Note* Telephone Encounter - Jeanne Chacon - 09/30/2024 11:01 AM EST Pt is scheduled with Dr Chacon 10/01/2024. [facility] [id number] Miscellaneous Notes* Telephone Encounter - Jeanne Chacon - 09/30/2024 11:01 AM EST Pt is scheduled with Dr Chacon 10/01/2024. * Telephone Encounter - Jeanne Chacon - 09/26/2024 8:50 AM EST Tried to call pt to schedule a follow up appt for labs, unable to leave a message. documented in this encounterPemiscot Memorial Health [id number] Telephone encounter Note* Telephone Encounter - Jeannebrodie Chacon - 09/26/2024 8:50 AM EST Tried to call pt to schedule a follow up appt for labs, unable to leave a message. [facility] [id number] NoteCardiovascular Medicine [facility] SUBJECTIVE Chief Complaint Patient presents [...] few months. Patient here for follow up [facility]. Her diuretic was switched again back [...] Oz of fluid a day per the lan analyst. Her most recent discharge on 07/25/24 she [...] Hypomagnesemia Hypothyroidism Stage 3 chronic kidney disease ([facility]) Hyperlipidemia Atrial fibrillation ([facility]) Paroxysmal atrial fibrillation ([facility]) Abdominal swelling, generalized Acute on chronic diastolic CHF (congestive heart failure) ([facility]) Anxiety Back pain with history of spinal surgery Cervical disc disease Chalazion of right eye Dyspnea Hordeolum externum (stye) Immunization due Lactose intolerance rn long term care (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 insulin ([facility]) Lumbar degenerative disc disease Lumbar spondylosis Lymph edema Macular degeneration Memory changes Osteoarthritis Secondary hyperparathyroidism ([facility]) Stress incontinence of urine Thrush of mouth and esophagus ([facility]) Urinary incontinence UTI (urinary tract infection) Yeast cystitis CARMELO (acute kidney injury) ([facility]) Tremor Acquired hammer toe of right foot Ataxia Balance disorder CHF (congestive heart failure) ([facility]) Dehydration Diabetic foot ([facility]) Diabetic peripheral neuropathy associated with type 2 diabetes mellitus ([facility]) Disability of walking Essential tremor LPRD (laryngopharyngeal reflux disease) Mass of right axilla Paresthesia Throat tightness Type 2 diabetes mellitus with hyperglycemia, with long-term current use of insulin ([facility]) Venous insufficiency (chronic) (peripheral) Debility Past Medical History: Diagnosis Date Atrial fibrillation ([facility]) Cancer ([facility]) Carotid artery stenosis Coronary artery disease Diabetes mellitus ([facility]) GERD (gastroesophageal reflux disease) Hypertension Sleep apnea Family History Problem Relation Name Age of Onset Coronary artery disease Other Diabetes Other Polycystic kidney disease Other Social History Tobacco Use Smoking status: Former Types: Ci (more content not included)...[facility] 09-03-2024 NotePatient here for 2 week follow up. Had echo last week and labs drawn this afternoon. Says she's feeling better. Still denies chest pain, palpitations, and bleeding on Xarelto. Review of Systems Cardiovascular: Positive for leg swelling (feet). Respiratory: Positive for shortness of breath. Musculoskeletal: Positive for muscle weakness. Neurological: Positive for tremors. All other systems reviewed and are negative.[facility] 08-20-2024 NotePatient here for follow up [facility]. Her diuretic was switched again back [...] tremors. All other systems reviewed and are negative.[facility] 08-20-2024 NoteCardiovascular Medicine [facility] SUBJECTIVE Chief Complaint Patient presents with [...] few months. Patient here for follow up [facility]. Her diuretic was switched again back [...] Oz of fluid a day per the lan analyst. Her most recent discharge on 07/25/24 she [...] deficiency Lymphedema of left arm Morbid obesity ([facility]) Obstructive sleep apnea syndrome Paroxysmal supraventricular tachycardia ([facility]) Psoriasis Type 2 diabetes mellitus without complication ([facility]) Mixed hyperlipidemia Diastolic dysfunction Carotid bruit Chronic diarrhea Chronic low back pain Depressive disorder Diabetes mellitus ([facility]) Diabetic neuropathy ([facility]) Exocrine pancreatic insufficiency Gastroesophageal reflux disease Hypertension Hypomagnesemia Hypothyroidism Stage 3 chronic kidney disease ([facility]) Hyperlipidemia Atrial fibrillation ([facility]) Paroxysmal atrial fibrillation ([facility]) Abdominal swelling, generalized Acute on chronic diastolic CHF (congestive heart failure) ([facility]) Anxiety Back pain with history of spinal surgery Cervical disc disease Chalazion of right eye Dyspnea Hordeolum externum (stye) Immunization due Lactose intolerance rn long term care (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 insulin ([facility]) Lumbar degenerative disc disease Lumbar spondylosis Lymph edema Macular degeneration Memory changes Osteoarthritis Secondary hyperparathyroidism ([facility]) Stress incontinence of urine Thrush of mouth and esophagus ([facility]) Urinary incontinence UTI (urinary tract infection) Yeast cystitis CARMELO (acute kidney injury) ([facility]) Tremor Acquired hammer toe of right foot Ataxia Balance disorder CHF (congestive heart failure) ([facility]) Dehydration Diabetic foot ([facility]) Diabetic peripheral neuropathy associated with type 2 diabetes mellitus ([facility]) Disability of walking Essential tremor LPRD (laryngopharyngeal reflux disease) Mass of right axilla Paresthesia Throat tightness Type 2 diabetes mellitus with hyperglycemia, with long-term current use of insulin ([facility]) Venous insufficiency (chronic) (peripheral) Debility Past Medical History: Diagnosis Date Atrial fibrillation ([facility]) Cancer ([facility]) Carotid artery stenosis Coronary artery disease Diabetes mellitus ([facility]) GERD (gastroesophageal reflux disease) [...] All other systems reviewed (more content not included)...[facility]09[facility] History of Present illness Narrative* Christel Chacon [...] on chronic diastolic CHF (congestive heart failure) ([facility]) 05/20/2024 CARMELO (acute kidney injury) ([facility]) 05/20/2024 Anxiety 05/20/2024 Aortic [...] 05/20/2024 Stage 3 chronic kidney disease (HCC) ([facility]) 01/16/2023 Hypertensive chronic kidney disease with stage 1 through stage 4 chronic kidney disease, or unspecified chronic kidney disease (CMS/HCC) 07/03/2024 Thrush of mouth and esophagus (CMS/HCC) 05/20/2024 Tremor 06/18/2024 Type 2 diabetes mellitus with hyperglycemia, with long-term current use of insulin ([facility] 07/03/2024 Venous insufficiency (chronic) (peripheral) 07/03/2024 Essential tremor 07/08/2024 Balance disorder 07/08/2024 Ataxia 07/08/2024 Diabetic peripheral neuropathy ([facility]) 07/08/2024 Paresthesia 07/08/2024 Sensory ataxia 07/10/2024 Debility 07/10/2024 Weakness 07/10/2024 Paresthesias 07/10/2024 Resolved Ambulatory Problems Diagnosis Date Noted Acute pain of left shoulder 07/03/2024 Lactose intolerance 05/20/2024 halfway (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 insulin ([facility]) 05/20/2024 Pharyngitis 07/03/2024 CKD (chronic kidney disease), stage IV ([facility]) 07/03/2024 Stress incontinence of urine 05/20/2024 Urinary incontinence 05/20/2024 UTI (urinary tract infection) 05/20/2024 Yeast cystitis 05/20/2024 Past Medical History: Diagnosis Date Anemia Breast cancer ([facility]) Coronary heart disease ([facility]) Diverticulosis GERD (gastroesophageal reflux disease) SD (myocardial infarction) ([facility]) Myocardial infarction ([facility]) Type II diabetes mellitus ([facility]) Past Surgical History: Procedure Laterality Date APPENDECTOMY [...] contribute to throat fullness documented in this encounterPemiscot Memorial Health [id number] History of Present illness Narrative* Lizett Jacinto, [employer] ARTISTIC DIRECTOR - 07/10/2024 1:40 PM EDT Images from [...] HOSP F/U after being seen IP at [facility] for worsening SOB along with lower extremity edema and lower abdominal wall edema after being taken off of Lasix. Was discharged with instructions to f/u with PCP, Cardiologies, Carpenter Mate. States that she was dx with CHF [...] of left shoulder 07/03/2024 Anemia Breast cancer ([facility]) CKD (chronic kidney disease), stage IV ([facility]) 07/03/2024 Coronary heart disease ([facility]) Diverticulosis GERD (gastroesophageal reflux disease) Lactose intolerance 05/20/2024 halfway (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 insulin ([facility]) 05/20/2024 SD (myocardial infarction) ([facility]) Myocardial infarction ([facility]) Pharyngitis 07/03/2024 Type II diabetes mellitus ([facility]) Urinary incontinence 05/20/2024 Yeast [...] as we have not seen her in [facility]. She never followed up. Dr. [...] would need to be done through the naturopath. The patient does have benzodiazepines which are [...] modifying techniques such as weighted silverware, utensil telephonic case manager and/or cups with lids on them. . [...] and the medication options Weighted silverware Utensil telephonic case manager to aid with writing and putting on [...] to clinic: 2 months documented in this encounterPemiscot Memorial Health [id number] NoteUT Cardiology - [facility] Subjective Joe Call is a 78 y.o. year old female patient being seen for 1 mo follow up acute on chronic diastolic heart failure, CAD, and CARMELO. She's presented to [facility] ED several times over the past [...] Hordeolum externum (stye) Immunization due Lactose intolerance rn long term care (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 insulin (CMS/HCC) Lumbar degenerative [...] prior cardiac catheterizations. She has history of SD in the past and underwent balloon angioplasty (many years ago, prior to the stent era). 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 In December 2022 she was admitted to the [facility] with decompensated diastolic heart failure, she was treated with diuretic therapy. In February 20[address] she [address] [facility] with dehydration secondary to acute gastroenteritis. She also had acute kidney injury in that setting. She has history of breast cancer more than 25 years ago s/p mastectomy, chemo and radiation therapy. She has lymphedema in the left arm. In the past she saw a government auditor for bleeding behind the eye . she [...] April 2024 she was admitted to the [facility] with increasing weakness and altered mental status. She also had acute renal insufficiency. She had UTI secondary to E. coli. She was admitted again to the [facility] on 06/09/2020 for with acute on [...] Appearance: She is well-develo (more content not included)...[facility]07-09-2024 NoteBMP today to assess renal function and electrolytesUnSt. Rita's Hospital07-09-2024 NoteHeart failure is unchanged. NYHA Class II. Continue current treatment regimen. Dietary sodium restriction. Encouraged daily monitoring of the patient's weight. Continue current medications. Heart failure will be reassessed in 1 month. BMP to assess renal function and electrolytes today to see if can uptitrate GDMT- in light Lasix, lisinopril and aldactone on hold from recent hospitalizationUnSt. Rita's Hospital07-09-2024 NoteCoronary artery disease is unchanged. Continue current medications. Continue GDMT- lipitor, metoprolol continue risk factor modifications- heart healthy diet, regular exercise as tolerated and continue all medications.[facility] 05-20-2024 NoteLipid abnormalities are unchanged. Pharmacotherapy as ordered. Continue lipitorUnSt. Rita's Hospital07-09-2024 NoteUTP CARDIOLOGY PROGRESS NOTE HPI: Joe Call is a 78 y.o. female here for hospital F/U HPI: Patient here for follow up [facility] for renal failure. She was also discharged back in March 2024 for CHF. Lisinopril, spironolactone, and furosemide were stopped during one of the admissions. She denies chest pain, SOB, and LE edema. Denies lightheadedness, syncope, and bleeding on Xarelto. Feels much better s/p hospital stay. Palpitations are no more than usual for her. She will be seeing her lan analyst (Dr. Rapp) on 06/05/2024. Currently weight is [...] prior cardiac catheterizations. She has history of SD in the past and underwent balloon angioplasty (many years ago, prior to the stent era). 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 In December 2022 she was admitted to the [facility] with decompensated diastolic heart failure, she was treated with diuretic therapy. In February 2023 she [address] to [facility] with dehydration secondary to acute gastroenteritis. She also had acute kidney injury in that setting. She has history of breast cancer more than 25 years ago s/p mastectomy, chemo and radiation therapy. She has lymphedema in the left arm. In the past she saw a government auditor for bleeding behind the eye . she [...] BSA 2.3 m??? Allergie (more content not included)...[facility] 05-20-2024 NotePatient here for follow up [facility] for renal failure. She was also discharged back in March 2024 for CHF. Lisinopril, spironolactone, and furosemide were stopped during one of the admissions. She denies chest pain, SOB, and LE edema. Denies lightheadedness, syncope, and bleeding on Xarelto. Feels much better s/p hospital stay. Palpitations are no more than usual for her. She will be seeing her lan analyst (Dr. Rapp) on 06/05/2024. Review of Systems Cardiovascular: Positive for palpitations. Musculoskeletal: Positive for muscle weakness. All other systems reviewed and are negative.[facility] 03-07-2024 NoteUT Cardiology - [facility] Subjective Jeo Call is a 78 y.o. year old [...] prior cardiac catheterizations. She has history of SD in the past and underwent balloon angioplasty (many years ago, prior to the stent era). 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 In December 2022 she was admitted to the [facility] with decompensated diastolic heart failure, she was treated with diuretic therapy. In February 20[address] [facility] with dehydration secondary to acute gastroenteritis. She also had acute kidney injury in that setting. She has history of breast cancer more than 25 years ago s/p mastectomy, chemo and radiation therapy. She has lymphedema in the left arm. In the past she saw a government auditor for bleeding behind the eye . she [...] THREE TIMES DAILY NEEDED (more content not included)...[facility] 02-15-2024 Hospital Discharge instructionsAmbulatory Orders* Referral to Urology Time Frame: 02/15/24, Location: None [facility] Work Phone: 1(163) 859-917901-08-2024 Evaluation note* Encounter Date Diagnosis Assessment Notes Treatment Notes Treatment Clinical Notes Nov, Lumbar degenerative disc disease (ICD-10 - M51.36) [place] [employer] Other 12-12-2023 Evaluation note* Encounter Date Diagnosis [...] will check vitamin B12 level next visit [employer] Other 12-11-2023 Evaluation note* Encounter Date Diagnosis Assessment Notes Treatment Notes Treatment Clinical Notes Oct, Lumbar degenerative disc disease (ICD-10 - M51.36) [employer] Other 12-07-2023 Evaluation note* Encounter Date Diagnosis Assessment Notes Treatment Notes Treatment Clinical Notes Oct, Bronchitis (ICD-10 - J40) Finish meds. No acute need for antibiotic at this time Oct, Diabetes mellitus with chronic kidney disease (ICD-10 - E11.22) Due for labs, followup w Dr. Mcconnell Oct, Lumbar degenerative disc disease (ICD-10 - M51.36) Pt will contact neurosurgery. [employer] Other 10-27-2023 Evaluation note* Encounter Date Diagnosis Assessment Notes Treatment Notes Treatment Clinical Notes Aug, Chronic kidney disease, stage 4 (severe) (ICD-10 - N18.4) [employer] Other 10-24-2023 Evaluation note* Encounter Date Diagnosis [...] (ICD-10 - M51.36) Pt requests referral to [facility]. Reviewed [facility] report. Aug, Stress incontinence of urine (ICD-10 - N39.3) R/o infection. Discussed could be related to her diabetes med as well. [employer] Other 10-12-2023 Evaluation note* Encounter Date Diagnosis Assessment Notes Treatment Notes Treatment Clinical Notes Aug, Lumbar degenerative disc disease (ICD-10 - M51.36) [employer] Other 09-11-2023 Evaluation note* Encounter Date Diagnosis Assessment Notes Treatment Notes Treatment Clinical Notes Jul, Lumbar degenerative disc disease (ICD-10 - M51.36) [employer] Other 09-05-2023 Evaluation note* Encounter Date Diagnosis [...] refill. Oarrs reviewed. No med changes needed. [employer] Other 07-05-2023 Evaluation note* Encounter Date Diagnosis Assessment Notes Treatment Notes Treatment Clinical Notes May, C. difficile colitis (ICD-10 - A04.72) [employer] Other 06-19-2023 Evaluation note* Encounter Date Diagnosis Assessment Notes Treatment Notes Treatment Clinical Notes Apr, Skin candidiasis (ICD-10 - B37.2) Discussed this is related to her hyperglycemia. Will treat w nystatin, but needs improvement in diet and glucose readings. Apr, Type 2 diabetes mellitus with hyperglycemia, unspecified whether superintendent terminal insulin use (ICD-10 - E11.65) Pt agrees to see Dr Mcconnell again. Recently sent to ER for glucose of 608. Apr, Tremor of both hands (ICD-10 - R25.1) Referral to Dr. Lopez Apr, Memory changes (ICD- 10 - R41.3) Referral to Dr. Lopez Apr, Gastroesophageal reflux disease without esophagitis (ICD-10 - K21.9) Improved on carafate w PPI. [employer] Other 06-01-2023 Evaluation note* Encounter Date Diagnosis Assessment Notes Treatment Notes Treatment Clinical Notes Apr, Gastroesophageal ref lux disease without esophagitis (ICD-10 - K21.9) [employer] Other 04-28-2023 Evaluation note* Encounter Date Diagnosis [...] (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 insulin (ICD-10 - Z79.4) [employer] Other 04-26-2023 Evaluation note* Encounter Date Diagnosis Assessment Notes Treatment Notes Treatment Clinical Notes Feb, C. difficile colitis (ICD-10 - A04.72) [employer] Other 04-17-2023 Evaluation note* Encounter Date Diagnosis Assessment Notes Treatment Notes Treatment Clinical Notes Feb, Gastroesophageal ref lux disease without esophagitis (ICD-10 - K21.9) [employer] Other 04-14-2023 Evaluation note* Encounter Date Diagnosis Assessment Notes Treatment Notes Treatment Clinical Notes Feb, Chronic diarrhea (ICD-10 - K52.9) [employer] Other 04-11-2023 Evaluation note* Encounter Date Diagnosis [...] it really overall has not been helpful. [employer] Other 01-13-2023 Evaluation note* Encounter Date Diagnosis Assessment Notes Treatment Notes Treatment Clinical Notes Nov, Type 2 diabetes mellitus with hyperglycemia, unspecified whether superintendent terminal insulin use (ICD-10 - E11.65) [employer] Other 10-14-2021 Evaluation note* Encounter Date Diagnosis [...] training 6. Follow up in 3 months. [employer] Other Evaluation + Plan note No data available for this section [facility] Evaluation + Plan note Future Appointments Appointment Date:11/06/2024 11:00:00 AM Scheduled Provider: Location:[facility] Appointment Type:URO Nurse Visit Appointment Date:12/08/2024 11:40:00 AM Scheduled Provider:FRANCHESCA PERAZA PA-C Location:[facility] Appointment Type:URO Office Visit Diagnostic Tests Pending * Renal Function Panel 11/04/24 [facility] evaluation + Plan note Future Appointments Appointment Date:12/08/2024 11:40:00 AM Scheduled Provider:FRANCHESCA PERAZA PA-C Location:[facility] Appointment Type:URO Office Visit Appointment Date:12/18/2024 11:20:00 AM Scheduled Provider:FRANCHESCA PERAZA PA-C Location:[facility] Appointment Type:URO Complex Office Visit [facility] evaluation + Plan note Future Appointments Appointment Date:12/18/2024 11:20:00 AM Scheduled Provider:FRANCHESCA PERAZA PA-C Location:[facility] Appointment Type:URO Complex Office Visit [facility] evaluation noteNo [employer] Other evaluation noteN[employer] Other Evaluation noteN[employer] Other Evaluation note* Diagnosis Onset Date Resolution Status Chalazion of right eye acute Immunization due acute Urinary incontinence acute [facility] Work Phone: evaluation note* Diagnosis Onset Date Resolution Status Chalazion of right eye acute Immunization due acute Urinary incontinence acute Diabetes mellitus with hyperglycemia acute Hypertension acute Hypothyroidism acute Lumbar spondylosis acute Secondary hyperparathyroidism acute [facility] Work Phone: evaluation note* Diagnosis [...] acute Thrush of mouth and esophagus acute [facility] Work Phone: evaluation note* Diagnosis [...] IV acute UTI (urinary tract infection) acute [facility] Work Phone: evaluation note* Diagnosis [...] acute Thrush of mouth and esophagus acute [id number] acute Secondary hyperparathyroidism acute [facility] Work Phone: Evaluation note* [...] acute Thrush of mouth and esophagus acute [id number] acute CKD (chronic kidney disease) stage 3, GFR 30-59 ml/min acute Hyperlipidemia acute [id number] acute Secondary hyperparathyroidism acute Type 2 diabetes mellitus wit h diabetic chronic kidney disease acute Tremor acute [facility] Work Phone: Evaluation note* [...] acute Thrush of mouth and esophagus acute [id number] acute CKD (chronic kidney disease) stage 3, GFR 30-59 ml/min acute Hyperlipidemia acute [id number] acute Secondary hyperparathyroidism acute Type 2 diabetes mellitus wit h diabetic chronic kidney disease acute Acute on chronic diastolic C HF (congestive heart failure) acute [id number] acute Tremor acute [id number] acute [facility] Work Phone: Evaluation note* [...] acute Thrush of mouth and esophagus acute INH-[id number] acute CKD (chronic kidney disease) stage 3, GFR 30-59 ml/min acute Hyperlipidemia acute [id number] acute Secondary hyperparathyroidism acute Type 2 diabetes mellitus wit h diabetic chronic kidney disease acute Acute on chronic diastolic C HF (congestive heart failure) acute [id number]-[id number] acute Tremor acute IDI-CLNJ-[id number] acute Mass of right axilla acute [facility] Work Phone: Evaluation note* [...] acute Thrush of mouth and esophagus acute [id number] acute CKD (chronic kidney disease) stage 3, GFR 30-59 ml/min acute Hyperlipidemia acute [id number] acute Secondary hyperparathyroidism acute Type 2 diabetes mellitus wit h diabetic chronic kidney disease acute Acute on chronic diastolic C HF (congestive heart failure) acute [id number] acute Tremor acute KXQ-[id number] acute Mass of right axilla acute CHF (congestive heart failure) acute Dehydration acute [id number] acute YVK-[id number] acute [facility] Work Phone: Evaluation note* [...] acute Thrush of mouth and esophagus acute [id number] acute CKD (chronic kidney disease) stage 3, GFR 30-59 ml/min acute Hyperlipidemia acute [id number] acute Secondary hyperparathyroidism acute Type 2 diabetes mellitus wit h diabetic chronic kidney disease acute Acute on chronic diastolic C HF (congestive heart failure) acute [id number] acute Tremor acute KWP-MRDH-60955959 acute Back pain with history of spinal surgery acute Cervical disc disease acute CKD (chronic kidney disease), stage IV acute Mass of right axilla acute CHF (congestive heart failure) acute Dehydration acute [id number] acute OHC-QPPH-[id number] acute Dysuria acute [facility] Work Phone: Evaluation note* Diagnosis Onset Date Resolution Status Lumbar degenerative disc disease acute Thrush of mouth and esophagus acute [id number] acute CKD (chronic kidney disease) stage 3, GFR 30-59 ml/min acute Hyperlipidemia acute [id number] acute Secondary hyperparathyroidism acute Type 2 diabetes mellitus wit h diabetic chronic kidney disease acute Acute on chronic diastolic C HF (congestive heart failure) acute [id number] acute Tremor acute UMU-[id number] acute Back pain with history of spinal surgery acute Cervical disc disease acute CKD (chronic kidney disease), stage IV acute Mass of right axilla acute CHF (congestive heart failure) acute Dehydration acute [id number] acute IUW-[id number] acute Dysuria acute [facility] Work Phone: Evaluation note* Diagnosis JED (obstructive sleep apnea)- Primary Obstructive sleep apnea (adult) (pediatric) Hypothyroidism (acquired) ([facility] Unspecified hypothyroidism documented in [...] History COLONOSCOPY 04/10/2019 Hospitalization History See above [employer] Other [employer] general Narrative - Reported* Type Description Date [...] History COLONOSCOPY 04/10/2019 Hospitalization History See above [employer] Other History general Narrative - [employer] Other History general Narrative - [employer]ortedN[employer] Other History general Narrative - Reported* Type [...] GERD 2022 Hospitalization History DIABETES ISSUES 2022 [employer] Other Hospital Discharge instructions No data available for this section [facility] Discharge instructionsAmbulatory Orders* Referral to Neurology Time Frame: 06/16/24, Location: None [facility] Work Phone: Hospital Discharge instructionsAmbulatory Orders* Referral to ENT Time Frame: 06/25/24, Location: None [facility] Work Phone: Progress note No data available for this section [facility] Reason for visit Narrative* Consultation (Routine) - Closed Specialty Diagnoses / Procedures Referred By Renetta t Referred To Contact Neurology Diagnoses Tremor, unspecified Procedures [facility] OFFICE/OUTPATIENT [facility] 30 MINUTES Shantel Steven MD [address] [place] [address] Gio Choe MD [address] [place] [address] Referral ID Status Reason Start Date Expiration Date V isits Requested Visits Authorized [id number] Closed Consult and Treat 06/27/2024 12/24/2024 1 [...] se, stage 4 (severe) (N18.4) Referral Organization [facility] [employer] helene Referring Provider First Name Shantel Referring Provider Last Name Tenisha Referring Provider Specialty [facility] Referred Organization [facility] Nephrology Referred Provider Cherie Rapp Referred Address [address] [place],[address] Referred Provider Specialty Nephrology Referral Priority Routine General Notes Mariela Kingston 11:35:41 AM >received today, sent P2P Reason *FU 09/13 lumbar p ain Diagnosis 1 Lumbar degenerative disc disease (M51.36) Referral Organization [facility] helene Referring Provider First Name Shantel Referring Provider Last Name Tenisha Referring Provider Specialty [facility] Referred Organization [facility] Referred Provider Terell Soliz Referred Address [address], [place],[address] Referred Provider Specialty Pain Medicin e Referral Priority Routine General Notes Mariela Kingston 03:09:25 PM >received today, waiting for notes to be locked Mariela Kingston 09/06/2023 10:08:29 AM >notes locked, referral faxed Clinical Notes F: [id number] Reason Poorly controlled di abetes Diagnosis 1 Type 2 diabetes maranda itus with hyperglycemia, unspecified whether intermediate insulin use (E11.65) Referral Organization [facility] helene Referring Provider First Name Shantel Referring Provider Last Name Tenisha Referring Provider Specialty [facility] [email or web address] Referred Organization Unknown Facility Referred Provider Joshua Mcconnell Referred Provider Specialty Internal Med icine Referral Priority Routine Reason tremor and memory lo ss - family history of dementia Diagnosis 1 Tremor of both hands (R25.1) Referral Organization [facility] helene Referring Provider First Name Shantel Referring Provider Last Name Tenisha Referring Provider Specialty [facility] [email or web address] Referred Organization Unknown Facility Referred Provider Emery [...] disc disease Thrush of mouth and esophagus [id number] Secondary hyperparathyroidism Chief Complaint medication review Amb [...] disc disease Thrush of mouth and esophagus [id number] CKD (chronic kidney disease) stage 3, GFR 30-59 ml/min Hyperlipidemia [id number] Secondary hyperparathyroidism Type 2 diabetes mellitus with [...] disc disease Thrush of mouth and esophagus ZSY-[id number] CKD (chronic kidney disease) stage 3, GFR 30-59 ml/min Hyperlipidemia [id number] 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 Acute on chronic diastolic CHF (congestive heart failure) [id number]-[id number]-[id number] Tremor [id number] Chief Complaint difficulty swallowin g Amb Documentation [...] disc disease Thrush of mouth and esophagus [id number] CKD (chronic kidney disease) stage 3, GFR 30-59 ml/min Hyperlipidemia [id number] 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 Acute on chronic diastolic CHF (congestive heart failure) [id number] Tremor [id number]-[id number] Mass of right axilla Chief Complaint difficulty [...] disc disease Thrush of mouth and esophagus IMH-[id number] CKD (chronic kidney disease) stage 3, GFR 30-59 ml/min Hyperlipidemia [id number]-[id number] 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 Acute on chronic diastolic CHF (congestive heart failure) [id number]-[id number]-[id number] Tremor EEC-[id number]-[id number] Mass of right axilla Chief Complaint difficulty [...] disc disease Thrush of mouth and esophagus [id number] CKD (chronic kidney disease) stage 3, GFR 30-59 ml/min Hyperlipidemia PGH-[id number] 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 Acute on chronic diastolic CHF (congestive heart failure) [id number]-[id number]-82775025 Tremor URY-[id number] Mass of right axilla CHF (congestive heart failure) Dehydration [id number]-[id number]-[id number]-[id number] Chief Complaint difficulty swallowin g Amb Documentation [...] disc disease Thrush of mouth and esophagus [id number] CKD (chronic kidney disease) stage 3, GFR 30-59 ml/min Hyperlipidemia SPU-[id number] 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 Acute on chronic diastolic CHF (congestive heart failure) [id number]-[id number]-53950084 Tremor [id number]-ASET-72779014 Back pain with history of spinal surgery Cervical disc disease CKD (chronic kidney disease), stage IV Mass of right axilla CHF (congestive heart failure) Dehydration [id number] [id number]-[id number] Dysuria Chief Complaint throat problem SOB RENAL CKD 4 [facility] follow up 3 month f/u Kidney injury, high BP R30.0 UA Amb Documentation TBH f/u:Pulmonary Adema Reason for Visit Lumbar degenerative disc disease Thrush of mouth and esophagus [id number] CKD (chronic kidney disease) stage 3, GFR 30-59 ml/min Hyperlipidemia [id number] 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 Acute on chronic diastolic CHF (congestive heart failure) [id number] Tremor KNK-OXKE-54478609 Back pain with history of spinal surgery Cervical disc disease CKD (chronic kidney disease), stage IV Mass of right axilla CHF (congestive heart failure) Dehydration [id number] OFJ-[id number] Dysuria Chief Complaint Admit Date gen weakness [...] 025 12:52pm Gastroesophageal reflux disease (GERD) F [facility] 2024 3:21pm [facility] ER:Abd Pain/Chronic Pain January 14, 2025 [...] 2024 12:52pm GERD (gastroesophageal reflux disease) F [facility] 2024 12:52pm Lumbar degenerative disc disease Februar y 2024 12:52pm Seborrhea capitis in adult December 12:52pm Type 2 diabetes mellitus wit h diabetic chronic kidney disease December 26, 2024 12:52pm Acute on chronic diastolic CHF (congesti ve heart failure) January 06, 2025 3:21pm CKD (chronic kidney disease), stage IV F [facility] 2024 3:21pm GERD (gastroesophageal reflux disease) F [facility] 2024 3:21pm Lumbar degenerative disc disease Februar [...] and content) DATE CREATED AUTHOR 05/10/2018 [facility] DATE CREATED AUTHOR AUTHOR'S ORGANIZ ATION 03/10/2023 [facility] DATE CREATED AUTHOR AUTHOR'S ORGANIZ ATION 10/04/2024 [facility] EPIC DATE CREATED AUTHOR AUTHOR'S ORGANIZ ATION 12/04/2024 [facility] DATE CREATED AUTHOR AUTHOR'S ORGANIZ ATION 12/10/2024 [facility] DATE CREATED AUTHOR AUTHOR'S ORGANIZ ATION 12/21/2024 [facility] REASON FOR VISIT (unrecogniz ed section [...] Status: Inactive Member Role Status Dates Shantel Steevn MD Primary Care Provide r, Attending Provider Active Start: April 29, 2024 End: April 29, 2024 Team Status: Active Member Role Status Dates Shantel Steven MD Primary Care Provider Active Start: April 30, 2024 Analisa Bryant MD Attending Provider Active St art: April 30, 2024 Team Status: Active Member Role Status Dates Sahntel Steven MD Primary Care Provide r, Attending [...] End: January 18, 2024 Franchesca Sullivan APRN [employer] ARTISTIC DIRECTOR-C Attending Provider Act chiqui Start: January 18, [...] August 07, 2024 End: August 07, 2024 Computer Analyst Supervisor Relationship Specialty Start Date End Date Shantel Steven MD [address] [facility] [place] [phone] PCP - General Family Medicine 06/25/24 Computer Analyst Supervisor Relationship Specialty Start Date End Date Shantel Steven MD [address] [place] [phone] PCP - General Family Medicine 06/25/24 Computer Analyst Supervisor Relationship Specialty Start Date End Date Shantel Steven MD [address] [facility] [place] [phone] PCP - General Family Medicine 06/25/24 Computer Analyst Supervisor Relationship Specialty Start Date End Date Shantel Steven MD [address] [place] [address] PCP - General Family Medicine 06/25/24 Computer Analyst Supervisor Relationship Specialty Start Date End Date Shantel Setven MD [address] [facility] [place] [phone] PCP - General Family Medicine 06/25/24 Computer Analyst Supervisor Relationship Specialty Start Date End Date Shantel Steven MD [address] [facility] [place] [phone] PCP - General Family [facility] 06/25/24 Computer Analyst Supervisor Relationship Specialty Start Date End Date Shantel Steven MD [address] [facility] [place] [phone] PCP - General Family [facility] 06/25/24 Computer Analyst Supervisor Relationship Specialty Start Date End Date Shantel Steven MD [address] [facility] [place] [phone] PCP - General Family Medicine 06/25/24 Team [...] [facility] [employer] [facility] provides no warranty or guarantee of the accuracy or completeness of information in this document.
[2025-01-26 06:12] LABS: Basophils Absolute Auto 0.1 10^3/uL (0.0-0.1); Basophils Percent Auto 0.9 % (0.2-2.0); Eosinophils Absolute Auto 0.1 10^3/uL (0.0-0.7); Eosinophils Percent Auto 1.8 % (0.9-7.0); Hematocrit 37.5 % (36.0-48.0); Hemoglobin 12.2 g/dL (12.0-16.0); Immature Granulocytes Abs Auto 0.01 10^3/uL (0.00-0.03); Immature Granulocytes Pct Auto 0.1 % (0.0-0.5); Lymphocytes Absolute Auto 1.5 10^3/uL (1.2-3.8); Mean Corpuscular HGB Conc 32.5 g/dL (29.9-35.2); Mean Corpuscular Hemoglobin 29.8 pg (26.7-34.0); Mean Corpuscular Volume 91.5 fL (81.0-99.0); Mean Platelet Volume 10.3 fL (9.5-13.5); Monocytes Absolute Auto 0.6 10^3/uL (0.3-0.8); Monocytes Percent Auto 8.3 % (1.7-12.0); Neutrophils Absolute Auto 5.1 10^3/uL (1.4-6.5); Neutrophils Percent Auto 68.9 % (43.0-75.0); Platelet Count 210 10^3/uL (150-450); Red Cell Distribution Width 14.2 % (11.0-15.0); White Blood Count 7.4 10^3/uL (4.0-11.0)
[2025-01-26 06:25] LABS: Magnesium 1.3 mg/dL (1.8-2.4)
[2025-01-26 06:27] LABS: Alanine Aminotransferase 11 U/L (14-59); Albumin Globulin Ratio 0.5; Albumin Level 1.9 g/dL (3.4-5.0); Alkaline Phosphatase 77 U/L (46-116); Anion Gap 7.8; Aspartate Amino Transferase 19 U/L (15-37); BUN Creatinine Ratio 15.4; Bilirubin Total 0.4 mg/dL (0.2-1.0); Carbon Dioxide 35.1 mmol/L (21.0-32.0); Chloride 105 mmol/L (98-107); Estimated GFR (African America 46 (>=60 mL/min/1.73m^2); Estimated GFR (Non-African Ame 38 (>=60 mL/min/1.73m^2); Globulin 3.9 g/dL; Glucose 133 mg/dL (74-106); Sodium 145 mmol/L (136-145); Total Protein 5.8 g/dL (6.4-8.2)
[2025-01-26 06:35] LABS: Troponin I High Sensitivity 30.9 pg/mL (4.0-51.3)
[2025-01-26 06:36] LABS: Potassium 2.9 mmol/L (3.5-5.1)
[2025-01-26] MEDS: BUMETANIDE 1 MG/4 ML VIAL IVP ×2 (06:45→17:21)
[2025-01-26] MEDS: LEVOTHYROXINE SODIUM 125 MCG TABLET PO (06:48)
--- NOTE | 2025-01-26 07:57 | P.PN_ITS ---
Progress Note: Subjective Subjective Interval history: Patient continued to have diarrhea yesterday. C Diff culture negative. Imodium was started. Diuresis was started with IV Bumex. Patient notes this morning less swelling, still with diarrhea. Has never tried Lomotil. is at bedside. Epigastric pain, GERD, is improved today. No other issues or complaints. Exam Narrative Exam Narrative: General: Patient is alert, and oriented to person, place and time with normal affect, proper hygiene, morbid obesity Skin: yeast excoriated rash noted in the abdominal folds and groin, extensive Head: atraumatic, acephalic Eyes: PERRLA, no nystagmus present, conjunctiva clear, no scleral icterus Ears: normal gross auditory acuity Nose: symmetric, no discharge, no maxillary or frontal sinus tenderness Mouth/Throat: no erythema, exudate, or tonsillar enlargement, normal dentition Neck: no masses palpated, normal thyroid Heart: Normal rate and rhythm, no murmurs/rubs/gallops Lungs: no audible wheezes, crackles and diminished breath sounds in lung bases Abdomen: Normal audible bowel sounds, no distension, No palpable masses, no organomegaly, no rebound/guarding/ or rigidity; central obesity Musculoskeletal: +1 swelling bilateral feet and hands; patient has significant lymphedema on the left arm and leg Neuro: CN II-X grossly intact Constitutional Vital Signs, click to edit/add: Last Vital Signs Temp 97.4 F L 01/26/25 04:00 Pulse 56 L 01/26/25 05:33 Resp 18 01/26/25 04:00 BP 145/82 H 01/26/25 04:00 Pulse Ox 93 L 01/26/25 04:00 O2 Del Method Nasal Cannula 01/26/25 04:00 O2 Flow Rate 1 01/26/25 04:00 Progress Note: Objective Labs Labs: Short CBC 01/26/25 Range/Units 06:02 WBC 7.4 (4.0-11.0) 10^3/uL Hgb 12.2 (12.0-16.0) g/dL Hct 37.5 (36.0-48.0) % Plt Count 210 (150-450) 10^3/uL BMP 01/25/25 01/26/25 17:08 06:02 Sodium 145 Potassium 3.1 L 2.9 L* Chloride 105 Carbon Dioxide 35.1 H BUN 21.0 H Creatinine 1.36 H Glucose 133 H Calcium 8.0 L Liver Function 01/26/25 Range/Units 06:02 Total Bilirubin 0.4 (0.2-1.0) mg/dL AST 19 (15-37) U/L ALT 11 L (14-59) U/L Alkaline Phosphatase 77 (46-116) U/L Albumin 1.9 L (3.4-5.0) g/dL Progress Note: A&P Assessment and Plan (1) Acute on chronic clinical systolic heart failure: Assessment and Plan: ProBNP was >7000, monitor strict I's and O's, fluid restriction of fifteen hundred mL's, daily weights. Chest x-ray consistent with left pulmonary edema, monitor the need for oxygen as patient is tachypneic and was requiring 2L on admission and down to 1L. Will continue careful diuresis with Bumex 1mg IV BID. (2) Hypokalemia: Assessment and Plan: Klor-con 20Meq BID, was 2.9 this morning. Will replace IV as well today with 40MEQ IV x 1. Most likely from diarrhea and diuresis combo. (3) Hypomagnesemia: Assessment and Plan: Mag was 1.3. Will replace orally as the IV seemed to cause more diarrhea yesterday. (4) GERD with esophagitis: Assessment and Plan: IV protonix 40mg BID, and oral pepcid Qualifiers: Esophagitis bleeding: unspecified whether hemorrhage Qualified Code(s): K21.00 - Gastro-esophageal reflux disease with esophagitis, without bleeding (5) Yeast dermatitis: Assessment and Plan: topical Nystatin (6) CKD stage 3a, GFR 45-59 ml/min: Assessment and Plan: Cr was 1.36 which is around patient's baseline. Monitor closely with diuresis (7) Diabetes mellitus with hyperglycemia, with long-term current use of insulin: Assessment and Plan: continue long acting insulin and also Sliding scale as needed. 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 (9) Hypothyroidism (acquired): Assessment and Plan: continue levothyroxine, recheck TFT's stable (10) Hypertension: Assessment and Plan: resume home meds Qualifiers: Hypertension type: primary hypertension Qualified Code(s): I10 - Essential (primary) hypertension (11) Obesity: Assessment and Plan: would benefit from weight loss reduction Qualifiers: Body mass index: BMI 40.0-44.9 Obesity classification: adult class 3 (BMI >= 40) Obesity type: due to excess calories Serious obesity comorbidity presence: with serious comorbidity Qualified Code(s): E66.01 - Morbid (severe) obesity due to excess calories; Z68.41 - Body mass index [BMI] 40.0-44.9, adult (12) Anxiety: Assessment and Plan: continue duloxetine, Xanax, and buspar as needed. (13) Chronic diarrhea: Assessment and Plan: check stool sample as patient has significant electrolyte abnormalities but C diff. negative. Started Lomotil Plan Patient is a full code continue Xarelto for DVT prophylaxis Patient made inpatient status today due to severe electrolyte abnormalities that places the patient at high risk for complications and need for further hospital monitoring. Urinary Catheter Management Urinary Catheter Management Pure Wick: Cath placed during this visit: no
[2025-01-26] MEDS: PANTOPRAZOLE SODIUM 40 MG VIAL IV ×2 (08:20→21:29)
[2025-01-26] MEDS: DILTIAZEM HCL 120 MG CAP.ER.24H PO (08:21)
[2025-01-26] MEDS: VITS A,C,E/LUTEIN/MINERALS 1 TABLET 1 TAB PO ×2 (08:21→21:29)
[2025-01-26] MEDS: PROPRANOLOL HCL 20 MG TABLET 40 MG PO ×2 (08:21→21:29)
[2025-01-26] MEDS: CHOLECALCIFEROL (VITAMIN D3) 125 MCG/5,000 UNIT TABLET PO (08:21)
[2025-01-26] MEDS: BUSPIRONE HCL 10 MG TABLET 5 MG PO ×2 (08:21→21:30)
[2025-01-26] MEDS: SUCRALFATE 1 GM TABLET PO ×3 (08:21→16:29)
[2025-01-26] MEDS: DULOXETINE HCL 20 MG CAPSULE.DR PO (08:21)
[2025-01-26] MEDS: POTASSIUM CHLORIDE 10 MEQ ER TABLET 20 MEQ PO ×2 (08:21→21:29)
[2025-01-26] MEDS: MAGNESIUM OXIDE 400 MG TABLET PO ×2 (08:21→21:29)
[2025-01-26] MEDS: FAMOTIDINE 20 MG TABLET PO ×2 (08:21→21:29)
[2025-01-26] MEDS: NYSTATIN 15 GM POWDER 1 APPLIC TOPICAL ×2 (08:22→21:31)
[2025-01-26] MEDS: POTASSIUM CHLORIDE 40 MEQ in 0.9 % SODIUM CHLORIDE 250 ML 67.5 MEQ IV (08:41)
--- NOTE | 2025-01-26 10:00 | CM.NOTE ---
Rounds made with Dr. Ledesma, discussed with pt plan of care. Pt c/o severe diarrhea, Dr. Ledesma will start Lomotil for pt. No discharge today. PT and OT will evaluate pt today for discharge planning.
[2025-01-26] MEDS: DIPHENOXYLATE HCL 2.5 MG/ATROPINE 0.025 MG TABLET 1 TAB PO (10:19)
[2025-01-26] MEDS: INSULIN ASPART 300 UNIT/3 ML PEN SUBQ ×2 (12:00→21:31)
--- NOTE | 2025-01-26 12:12 | SWNOTE1 ---
SW reviewed OT note and pt HH services ended not too long ago and she does not want them back in. SW to speak with pt to confirm.
--- NOTE | 2025-01-26 12:16 | SWNOTE1 ---
SW stopped in room, case management in room as well. Pt did confirm HH was not coming in any longer. Pt did confirm she does not want them to come in and voiced possibly when she is feeling better. Case management did re-assure pt to call her PCP if she does get home and wants it set back up. Also let pt know if she does change her mind while at hospital we can set her back up with HH as well.
--- NOTE | 2025-01-26 12:38 | CM.NOTE ---
Important Message From Medicare discussed with pt, pt verbalizes understanding and signs paper. Original given to pt and copy placed on pt's chart.
--- NOTE | 2025-01-26 15:52 | DIETREC ---
Recommend 2000 kcal CCD diet. Current diet 2800 kcal exceeds pt's estimated energy requirements and may contribute to fluid overload. 1500 mL fluid restriction to remain in place. [place] text to Dr. Martine Ledesma @ [phone].
[2025-01-26] MEDS: ATORVASTATIN CALCIUM 20 MG TABLET PO (21:28)
[2025-01-26] MEDS: RIVAROXABAN 10 MG TABLET 20 MG PO (21:30)
[2025-01-26] MEDS: INSULIN GLARGINE 300 UNIT/3 ML INSULN.PEN 20 UNIT SQ (21:32)
[2025-01-27] VITALS (11 sets, daily range): BP systolic 149–163; BP diastolic 80–83; PULSE 62–73; TEMP 36.3–36.6; O2SAT 90–94
[2025-01-27] MEDS: BUMETANIDE 1 MG/4 ML VIAL IVP (05:38)
[2025-01-27] MEDS: LEVOTHYROXINE SODIUM 125 MCG TABLET PO (05:38)
[2025-01-27 06:11] LABS: Basophils Absolute Auto 0.1 10^3/uL (0.0-0.1); Basophils Percent Auto 0.7 % (0.2-2.0); Eosinophils Absolute Auto 0.2 10^3/uL (0.0-0.7); Eosinophils Percent Auto 2.4 % (0.9-7.0); Hematocrit 38.8 % (36.0-48.0); Hemoglobin 12.5 g/dL (12.0-16.0); Immature Granulocytes Abs Auto 0.02 10^3/uL (0.00-0.03); Immature Granulocytes Pct Auto 0.2 % (0.0-0.5); Lymphocytes Absolute Auto 1.9 10^3/uL (1.2-3.8); Lymphocytes Percent Auto 23.3 % (20.5-60.0); Mean Corpuscular HGB Conc 32.2 g/dL (29.9-35.2); Mean Corpuscular Hemoglobin 29.8 pg (26.7-34.0); Mean Corpuscular Volume 92.4 fL (81.0-99.0); Mean Platelet Volume 10.6 fL (9.5-13.5); Monocytes Absolute Auto 0.9 10^3/uL (0.3-0.8); Monocytes Percent Auto 10.8 % (1.7-12.0); Neutrophils Percent Auto 62.6 % (43.0-75.0); Platelet Count 223 10^3/uL (150-450); Red Cell Distribution Width 14.5 % (11.0-15.0)
[2025-01-27 06:32] LABS: Alanine Aminotransferase 8 U/L (14-59); Albumin Globulin Ratio 0.5; Albumin Level 2.1 g/dL (3.4-5.0); Alkaline Phosphatase 79 U/L (46-116); Anion Gap 5.5; Aspartate Amino Transferase 17 U/L (15-37); BUN Creatinine Ratio 14.5; Bilirubin Total 0.4 mg/dL (0.2-1.0); Calcium 8.3 mg/dL (8.5-10.1); Carbon Dioxide 36.4 mmol/L (21.0-32.0); Chloride 105 mmol/L (98-107); Estimated GFR (African America 40 (>=60 mL/min/1.73m^2); Estimated GFR (Non-African Ame 33 (>=60 mL/min/1.73m^2); Glucose 113 mg/dL (74-106); Sodium 144 mmol/L (136-145); Total Protein 6.1 g/dL (6.4-8.2)
[2025-01-27 06:35] LABS: Magnesium 1.3 mg/dL (1.8-2.4); Potassium 2.9 mmol/L (3.5-5.1)
[2025-01-27] MEDS: INSULIN ASPART 300 UNIT/3 ML PEN SUBQ ×2 (08:16→12:22)
[2025-01-27] MEDS: DILTIAZEM HCL 120 MG CAP.ER.24H PO (08:17)
[2025-01-27] MEDS: CHOLECALCIFEROL (VITAMIN D3) 125 MCG/5,000 UNIT TABLET PO (08:17)
[2025-01-27] MEDS: POTASSIUM CHLORIDE 10 MEQ ER TABLET 20 MEQ PO (08:17)
[2025-01-27] MEDS: SUCRALFATE 1 GM TABLET PO ×2 (08:17→11:09)
[2025-01-27] MEDS: VITS A,C,E/LUTEIN/MINERALS 1 TABLET 1 TAB PO (08:17)
[2025-01-27] MEDS: BUSPIRONE HCL 10 MG TABLET 5 MG PO (08:17)
[2025-01-27] MEDS: MAGNESIUM OXIDE 400 MG TABLET PO ×3 (08:17→14:25)
[2025-01-27] MEDS: PROPRANOLOL HCL 20 MG TABLET 40 MG PO (08:17)
[2025-01-27] MEDS: DULOXETINE HCL 20 MG CAPSULE.DR PO (08:17)
[2025-01-27] MEDS: FAMOTIDINE 20 MG TABLET PO (08:17)
[2025-01-27] MEDS: NYSTATIN 15 GM POWDER 1 APPLIC TOPICAL (08:18)
[2025-01-27] MEDS: PANTOPRAZOLE SODIUM 40 MG VIAL IV (08:18)
--- NOTE | 2025-01-27 08:49 | PM.PN ---
Progress Note: Subjective Subjective Interval history: The Lomotil seemed to help the diarrhea. Patient with good amount of urine output and improvement in her edema. She notes improvement in her GERD symptoms as well. Still with low potassium of 2.9 this morning and low mag of 1.3. Exam Narrative Exam Narrative: General: Patient is alert, and oriented to person, place and time with normal affect, proper hygiene, morbid obesity Skin: yeast excoriated rash noted in the abdominal folds and groin Head: atraumatic, acephalic Eyes: PERRLA, no nystagmus present, conjunctiva clear, no scleral icterus Ears: normal gross auditory acuity Nose: symmetric, no discharge, no maxillary or frontal sinus tenderness Mouth/Throat: no erythema, exudate, or tonsillar enlargement, normal dentition Neck: no masses palpated, normal thyroid Heart: Normal rate and rhythm, no murmurs/rubs/gallops Lungs: no audible wheezes, crackles and diminished breath sounds in lung bases Abdomen: Normal audible bowel sounds, no distension, No palpable masses, no organomegaly, no rebound/guarding/ or rigidity; central obesity Musculoskeletal: +1 swelling bilateral feet and hands; patient has significant lymphedema on the left arm and leg Neuro: CN II-X grossly intact Constitutional Vital Signs, click to edit/add: Last Vital Signs Temp 97.9 F 01/27/25 08:00 Pulse 63 01/27/25 08:00 Resp 16 01/27/25 08:00 BP 154/83 H 01/27/25 08:00 Pulse Ox 90 L 01/27/25 08:00 O2 Del Method Room Air 01/27/25 08:00 O2 Flow Rate 1 01/26/25 19:33 Progress Note: Objective Labs Labs: Short CBC 01/27/25 Range/Units 05:45 WBC 8.0 (4.0-11.0) 10^3/uL Hgb 12.5 (12.0-16.0) g/dL Hct 38.8 (36.0-48.0) % Plt Count 223 (150-450) 10^3/uL BMP 01/27/25 05:45 Sodium 144 Potassium 2.9 L* Chloride 105 Carbon Dioxide 36.4 H BUN 22.0 H Creatinine 1.52 H Glucose 113 H Calcium 8.3 L Liver Function 03/18/25 Range/Units 05:45 Total Bilirubin 0.4 (0.2-1.0) mg/dL AST 17 (15-37) U/L ALT 8 L (14-59) U/L Alkaline Phosphatase 79 (46-116) U/L Albumin 2.1 L (3.4-5.0) g/dL Progress Note: A&P Assessment and Plan (1) Acute on chronic clinical systolic heart failure: Assessment and Plan: monitor strict I's and O's, fluid restriction of fifteen hundred mL's, daily weights. Chest x-ray consistent with left pulmonary edema, monitor the need for oxygen as patient is tachypneic and was requiring 2L on admission and down to 1L. Will continue careful diuresis with Bumex 1mg IV BID will d/c and place on bumex 1mg PO daily. (2) Hypokalemia: Assessment and Plan: Klor-con 20Meq BID increased to 40MEQ BID, was 2.9 this morning. Will replace IV as well today with 40MEQ IV x 1. Most likely from diarrhea and diuresis combo and hopefully off the IV bumex will help. (3) Hypomagnesemia: Assessment and Plan: mag was 1.3, increase mag ox to 400mg TID (4) GERD with esophagitis: Assessment and Plan: IV protonix 40mg daily, and oral pepcid Qualifiers: Esophagitis bleeding: unspecified whether hemorrhage Qualified Code(s): K21.00 - Gastro-esophageal reflux disease with esophagitis, without bleeding (5) Yeast dermatitis: Assessment and Plan: topical Nystatin (6) CKD stage 3a, GFR 45-59 ml/min: Assessment and Plan: Cr was 1.52 which is around patient's baseline. Monitor closely with diuresis (7) Diabetes mellitus with hyperglycemia, with long-term current use of insulin: Assessment and Plan: continue long acting insulin and also Sliding scale as needed. Qualifiers: Diabetes mellitus type: type 2 Qualified Code(s): E11.65 - Type 2 diabetes mellitus with hyperglycemia; Z79.4 - group home (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 insulin (8) Paroxysmal atrial fibrillation: Assessment and Plan: continue propranolol , diltazem and Xarelto (9) Hypothyroidism (acquired): Assessment and Plan: continue levothyroxine, recheck TFT's stable (10) Hypertension: Assessment and Plan: resume home meds Qualifiers: Hypertension type: primary hypertension Qualified Code(s): I10 - Essential (primary) hypertension (11) Obesity: Assessment and Plan: would benefit from weight loss reduction Qualifiers: Body mass index: BMI 40.0-44.9 Obesity classification: adult class 3 (BMI >= 40) Obesity type: due to excess calories Serious obesity comorbidity presence: with serious comorbidity Qualified Code(s): E66.01 - Morbid (severe) obesity due to excess calories; Z68.41 - Body mass index [BMI] 40.0-44.9, adult (12) Anxiety: Assessment and Plan: continue duloxetine, Xanax, and buspar as needed (13) Chronic diarrhea: Assessment and Plan: Lomotil helped. C Diff negative Plan Patient is a full code continue Xarelto for DVT prophylaxis patient will need 1 more day due to electrolyte abnormalities. Urinary Catheter Management Urinary Catheter Management Pure Wick: Cath placed during this visit: yes Insertion date: 01/26/25 Insertion time: 12:00
[2025-01-27] MEDS: POTASSIUM CHLORIDE 10 MEQ ER TABLET 40 MEQ PO (11:09)
[2025-01-27] MEDS: BUMETANIDE 1 MG TABLET PO (11:09)
[2025-01-27] MEDS: POTASSIUM CHLORIDE 40 MEQ in 0.9 % SODIUM CHLORIDE 250 ML 67.5 MEQ IV (11:10)
[2025-01-27] MEDS: LOPERAMIDE HCL 1 MG/7.5 ML LIQUID PO (11:12)
[2025-01-27] MEDS: DIPHENOXYLATE HCL 2.5 MG/ATROPINE 0.025 MG TABLET 1 TAB PO (11:28)
--- NOTE | 2025-01-27 11:30 | CM.NOTE ---
Rounds made with Dr. Ledesma, discussed with pt discharge to home this afternoon after IV potassium and lab recheck. Pt will f/u with PCP next week.
--- NOTE | 2025-01-27 11:44 | PT.DAILY ---
Physical Therapy Daily Note PT Daily Note/Assess Start: 01/27/25 11:42 Freq: Status: Active Protocol: Document 01/27/25 11:43 REJI (Rec: 01/27/25 11:44 REJI [id number]) Visit Not Completed Visit Not Completed Visit Not Completed Pt refusing Due to: Other Reason Visit Patient states she is not doing therapy, reports she Not Completed just finished with therapy and isn't doing anymore Physical Therapy Daily Note/Assessment Time In/Time Out Time In 11:43 Time Out 11:43 GG. Functional Abilities and Goals-Complete for Swing Bed Patients Only [id number]. Self-Care [id number]. Mobility
--- NOTE | 2025-01-27 12:17 | CM.NOTE ---
Spoke with pt regarding discharge planning, pt continues to refuse HH services at this time.
[2025-01-27 12:46] LABS: Potassium 3.8 mmol/L (3.5-5.1)
--- NOTE | 2025-01-27 13:11 | PM.DS1 ---
DS: Providers Provider Date of admission: 01/26/25 08:04 Primary care physician: Theodora Cuevas MD Admitting clinician: Martine Ledesma Consults: 01/26/25 Occupational Therapy Eval and Treat Routine Reason for consultation: weakness Physical Therapy Eval and Treat Routine Reason for consultation: weakness 01/27/25 08:47 Occupational Therapy Eval and Treat Routine Reason for consultation: weakness Has provider been notified: No Physical Therapy Eval and Treat Routine Reason for consultation: weakness Has provider been notified: No Discharging clinician: Martine Ledesma DS: Diagnosis Discharge Diagnosis (1) Acute on chronic clinical systolic heart failure: (2) Hypokalemia: (3) Hypomagnesemia: (4) GERD with esophagitis: Qualifiers: Esophagitis bleeding: unspecified whether hemorrhage Qualified Code(s): K21.00 - Gastro-esophageal reflux disease with esophagitis, without bleeding (5) Yeast dermatitis: (6) CKD stage 3a, GFR 45-59 ml/min: (7) Diabetes mellitus with hyperglycemia, with long-term current use of insulin: Qualifiers: Diabetes mellitus type: type 2 Qualified Code(s): E11.65 - Type 2 diabetes mellitus with hyperglycemia; Z79.4 - [facility] (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 insulin (8) Paroxysmal atrial fibrillation: (9) Hypothyroidism (acquired): (10) Hypertension: Qualifiers: Hypertension type: primary hypertension Qualified Code(s): I10 - Essential (primary) hypertension (11) Obesity: Qualifiers: Obesity type: due to excess calories Obesity classification: adult class 3 (BMI >= 40) Serious obesity comorbidity presence: with serious comorbidity Body mass index: BMI 40.0-44.9 Qualified Code(s): E66.01 - Morbid (severe) obesity due to excess calories; Z68.41 - Body mass index [BMI] 40.0-44.9, adult (12) Anxiety: (13) Chronic diarrhea: DS: Summary Hospital Course Hospital Course: Patient is a 79-year-old female with past medical history of type 2 diabetes insulin-dependent, atrial fibrillation on chronic anticoagulation, hyperlipidemia, GERD, hypothyroidism, hypertension, Prior Mastectomy with left sided Lymphedema, who presented to the Emergency Room with shortness of breath that has been worsening over the last 2 weeks. She also notes bilateral lower extremity edema and epigastric pain. Patient has history of CHF and has been admitted several times to our facility for acute CHF symptoms. 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 Cuevas, and she also sees [facility] cardiology. she reports she has been compliant with medications and her last ha1c was down to 7.2. She has loose stools daily but this has been going on for 3 years. ER findings: Chest X-ray showed left pleural effusion with pulmonary vascular congestion, ProBNP 7089, Cr 1.49, BUN 22, Trop 34.7, K 2.7, mag 1.2; Respiratory Rate was 26, BP elevated at 189/80. She was given potassium oral replacement of 40 MEQ x 1 and Lasix 40mg IV x 1 and admitted to the hospitalist service for acute exacerbation of Chronic Congestive heart failure and epigastric pain. She diuresed well on Bumex 1mg IV BID. Her potassium level was 2.9 and had to be replaced orally and by IV. At the time of discharge it was 3.4. Stool studies were negative for Cdiff. She was started on Lomotil, which really helped. Her magnesium was also low and that needed replaced. She will be sent home on potassium and magnesium replacements, along with Lomotil to use in severe cases of diarrhea. Nystatine for her yeast dermatitis. She will resume all other home medications. She has close follow up with her PCP and will need recheck lab work. She is no longer requiring oxygen. She uses her walker to get around. She will be discharged home today in stable condition. Return to the ER with any worsening signs or symptoms. Status at Discharge Functional status at discharge: uses cane/walker Overall status at discharge: patient is progressing back to baseline Time Spent with Patient Time attestation: Total time spent providing and/or coordinating discharge services: Time spent: greater than 30 minutes Exam Narrative Exam Narrative: General: Patient is alert, and oriented to person, place and time with normal affect, proper hygiene, morbid obesity Skin: yeast excoriated rash noted in the abdominal folds and groin, extensive Head: atraumatic, acephalic Eyes: PERRLA, no nystagmus present, conjunctiva clear, no scleral icterus Ears: normal gross auditory acuity Nose: symmetric, no discharge, no maxillary or frontal sinus tenderness Mouth/Throat: no erythema, exudate, or tonsillar enlargement, normal dentition Neck: no masses palpated, normal thyroid Heart: Normal rate and rhythm, no murmurs/rubs/gallops Lungs: no audible wheezes, crackles and diminished breath sounds in lung bases Abdomen: Normal audible bowel sounds, no distension, No palpable masses, no organomegaly, no rebound/guarding/ or rigidity; central obesity Musculoskeletal: +1 swelling bilateral feet and hands; patient has significant lymphedema on the left arm and leg at baseline Neuro: CN II-X grossly intact Constitutional Vital Signs, click to edit/add: Last Vital Signs Temp 97.4 F L 01/27/25 12:00 Pulse 71 01/27/25 12:00 Resp 16 01/27/25 12:00 BP 163/81 H 01/27/25 12:00 Pulse Ox 92 L 01/27/25 12:00 O2 Del Method Room Air 01/27/25 12:00 O2 Flow Rate 1 01/26/25 19:33 DS: Data Data Completed and Pending Labs on day of discharge: Labs from last 24 hours 01/27/25 01/27/25 12:29 05:45 WBC 8.0 RBC 4.20 Hgb 12.5 Hct 38.8 MCV 92.4 MCH 29.8 MCHC 32.2 RDW 14.5 Plt Count 223 MPV 10.6 Neut % (Auto) 62.6 Lymph % (Auto) 23.3 [place] % (Auto) 10.8 Eos % (Auto) 2.4 Baso % (Auto) 0.7 Neut # (Auto) 5.0 Lymph # (Auto) 1.9 [place] # (Auto) 0.9 H Eos # (Auto) 0.2 Baso # (Auto) 0.1 Abs Immat Gran (auto) 0.02 Imm/Tot Granulo (auto) 0.2 Sodium 144 Potassium 3.8 2.9 L* Chloride 105 Carbon Dioxide 36.4 H Anion Gap 5.5 BUN 22.0 H Creatinine 1.52 H Est GFR ( Amer) 40 L Est GFR (Non-Af Amer) 33 L BUN/Creatinine Ratio 14.5 Glucose 113 H Calcium 8.3 L Magnesium 1.3 L Total Bilirubin 0.4 AST 17 ALT 8 L Alkaline Phosphatase 79 Total Protein 6.1 L Albumin 2.1 L Globulin 4.0 Albumin/Globulin Ratio 0.5 Discharge Plan Discharge Disposition: Home, Self-Care Discharge Medications: New nystatin [Nystop] 100,000 unit/gram Powder 1 applic topical BID 30 Days Qty: 60 0RF diphenoxylate-atropine [Lomotil] 2.5-0.025 mg Tablet 1 tab PO Q6H PRN (Reason: Diarrhea) 7 Days Qty: 28 0RF magnesium oxide 400 mg (241.3 mg magnesium) Tablet 400 mg PO TID 7 Days Qty: 21 0RF potassium chloride 10 mEq Tablet,Er Particles/Crystals 20 meq PO BID 7 Days Qty: 28 0RF Continued insulin glargine [Lantus Solostar U-100 Insulin] 100 unit/mL (3 mL) insulin pen 20 unit SUBCUT BEDTIME levothyroxine 125 mcg tablet 125 mcg PO .acb alprazolam 0.25 mg tablet 0.25 mg PO TID PRN (Reason: anxiety) Patient Comments: 0.25mg PO TID PRN for anxiety oxycodone-acetaminophen 5-325 mg tablet 1 tab PO DAILY PRN (Reason: pain) diltiazem HCl 120 mg capsule,extended release 24hr 120 mg PO .QD buspirone 5 mg tablet 5 mg PO BID duloxetine 20 mg capsule,delayed release(DR/EC) 20 mg PO DAILY ketoconazole 2 % shampoo 1 applic TOPICAL .2 TIMES WEEK propranolol 40 mg tablet 40 mg PO BID sucralfate 1 gram tablet 1 g PO AC Xarelto 20 mg tablet 20 mg PO DAILY Rx Instructions: must administer with evening meal PreserVision Lutein 226-90-0.8-5 mg capsule 1 cap PO BID atorvastatin 20 mg tablet 20 mg PO QPM cholecalciferol (vitamin D3) [Vitamin D3] 125 mcg (5,000 unit) tablet 125 mcg PO DAILY biotin 10,000 mcg tablet,disintegrating 10,000 mcg PO DAILY Novolin N FlexPen 100 unit/mL (3 mL) insulin pen 1 unit SUBCUT ACHS Patient Comments: (if BLOOD SUGAR is BETWEEN 150-199 INJECT 3 (THREE) UNITS, if BETWEEN 200-249 INJECT FOUR UNITS, if BETWEEN 250-299 INJECT 7 (SEVEN) UNITS, if BETWEEN 300-349 INJECT TEN UNITS, if BETWEEN 350-399 INJECT 12 UNITS, if 400 or great INJECT 14 UNITS) Rx Instructions: SLIDING SCALE famotidine 20 mg tablet 20 mg PO .qhs omeprazole 40 mg capsule,delayed release(DR/EC) 40 mg PO .acb Activity: ambulate only with your walker Diet: diabetic diet Print Language: Togolese Forms: Portal Instructions Follow Up Appointments: February 02 @ 2pm with Dr. Cuevas [phone] Will need recheck BMP and magnesium level Discharge location: Home
--- NOTE | 2025-01-29 14:25 | CM.DCFOLLOWU ---
Person spoke with:patient How are you feeling?well How is your pain?none Did you understand your discharge instructions?yes Do you have any questions about your discharge instructions?no Were you given any prescriptions at discharge?yes Were you able to get your prescriptions filled?yes Do you understand how to take your medications as ordered?yes Do you have any questions about your follow up appointment and do you plan to keep your follow up appointment? no questions, follow up reviewed Is there anything else that you would like to discuss?no Questions/Comments/Concerns/Other:none
== END 2025-01-27 13:35 | disposition home or self-care (01) | DRG 291 ==
LOC: ER 05:09 → MS 16:00
PROVIDERS: Registered Nurse; Admitting Provider Family Medicine; Emergency Provider Internal Medicine; PCP Family Medicine; Visit Provider Family Medicine
DX: I13.0 Hypertensive heart and chronic kidney disease with heart failure and stage 1 through stage 4 chronic kidney disease, or unspecified chronic kidney disease (principal); I50.23 Acute on chronic systolic (congestive) heart failure; Z68.41 Body mass index [BMI] 40.0-44.9, adult; N18.31 Chronic kidney disease, stage 3a; E11.22 Type 2 diabetes mellitus with diabetic chronic kidney disease; E11.65 Type 2 diabetes mellitus with hyperglycemia; E87.6 Hypokalemia; E83.42 Hypomagnesemia; I48.0 Paroxysmal atrial fibrillation; E03.9 Hypothyroidism, unspecified; E66.01 Morbid (severe) obesity due to excess calories; I97.2 Postmastectomy lymphedema syndrome; K21.00 Gastro-esophageal reflux disease with esophagitis, without bleeding; B37.2 Candidiasis of skin and nail; F41.9 Anxiety disorder, unspecified; K52.9 Noninfective gastroenteritis and colitis, unspecified; Z79.01 Long term (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 anticoagulants; Z79.890 Hormone replacement therapy; Z79.899 Other long term (current) drug therapy; Z88.2 Allergy status to sulfonamides; Z91.041 Radiographic dye allergy status; Z91.013 Allergy to seafood; Z85.3 Personal history of malignant neoplasm of breast; Z90.13 Acquired absence of bilateral breasts and nipples; Z79.4 Long term (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 insulin
CPT/HCPCS: 36415; 71046; 80048; 80053; 82948; 83735; 83880; 84132; 84439; 84443; 84484; 85025; 87045; 87046; 87427; 87493; 93005; 94667; 94668; 94761; 96365; 96375; 96376; 97161; 97165; 97530; 99285; G0378; J1940; J3475; J3480

== ENCOUNTER 2025-03-02 07:45 | Outpatient (OUT) | payer MEDICARE, SELFPAY ==
[2025-03-02 08:32] LABS: Bilirubin Urine NEGATIVE (NEGATIVE); Blood Urine TRACE-I (NEGATIVE); Clarity Urine CLEAR (CLEAR); Color Urine LT. YELLOW (YELLOW); Glucose Urine UA 250 mg/dL (NEGATIVE); Ketones Urine NEGATIVE (NEGATIVE); Leukocyte Esterase Urine NEGATIVE (NEGATIVE); Nitrite Urine NEGATIVE (NEGATIVE); Protein Urine >=300 mg/dL (NEG/TRACE); Urobilinogen Urine 0.2 EU/dL (0.2-1.0)
[2025-03-02 08:42] LABS: Bacteria Urine SMALL #/HPF (NONE SEEN); Cast Seen? NONE SEEN #/LPF (NONE SEEN); Crystals Seen? None Seen #/HPF (None Seen); Mucus Urine TRACE (NONE SEEN); Squamous Epithelial Cell Urine FEW #/LPF (NONE/RARE); WBC Urine NONE SEEN #/HPF (NONE SEEN)
[2025-03-02 08:55] LABS: Hematocrit 38.7 % (36.0-48.0); Hemoglobin 12.9 g/dL (12.0-16.0); Mean Corpuscular HGB Conc 33.3 g/dL (29.9-35.2); Mean Corpuscular Hemoglobin 29.4 pg (26.7-34.0); Mean Corpuscular Volume 88.2 fL (81.0-99.0); Mean Platelet Volume 11.7 fL (9.5-13.5); Platelet Count 150 10^3/uL (150-450); Red Blood Count 4.39 10^6/uL (4.20-5.40); Red Cell Distribution Width 13.4 % (11.0-15.0); White Blood Count 8.7 10^3/uL (4.0-11.0)
[2025-03-02 09:12] LABS: Creatinine Urine Random 26.93 mg/dL (20.00-300.00); Protein Creatinine Ratio Urine 6.91; Total Protein Urine Random 186.2 mg/dL (<=11.9)
[2025-03-02 09:22] LABS: Albumin Level 2.4 g/dL (3.4-5.0); Phosphorus 4.9 mg/dL (2.6-4.7); Uric Acid 8.1 mg/dL (2.6-6.0)
[2025-03-02 09:25] LABS: Percent Iron Saturation 22.3 %
[2025-03-03 12:08] LABS: PTH, Intact 57 pg/mL (15-65)
== END 2025-03-02 07:46 | disposition home or self-care (01) ==
LOC: LAB 07:46
PROVIDERS: PCP Family Medicine; Visit Provider Internal Medicine
DX: E11.22 Type 2 diabetes mellitus with diabetic chronic kidney disease (principal); I13.0 Hypertensive heart and chronic kidney disease with heart failure and stage 1 through stage 4 chronic kidney disease, or unspecified chronic kidney disease; I50.41 Acute combined systolic (congestive) and diastolic (congestive) heart failure; N18.30 Chronic kidney disease, stage 3 unspecified; N25.81 Secondary hyperparathyroidism of renal origin; E78.2 Mixed hyperlipidemia
CPT/HCPCS: 36415; 80048; 80061; 80069; 81001; 82042; 82306; 82570; 82728; 83540; 83550; 83735; 83880; 83970; 84100; 84156; 84550; 85027

== ENCOUNTER 2025-03-02 07:49 | Outpatient (OUT) | payer MEDICARE, SELFPAY ==
[2025-03-02 09:20] LABS: Anion Gap 13.4; Calcium 8.1 mg/dL (8.5-10.1); Carbon Dioxide 31.2 mmol/L (21.0-32.0); Chloride 96 mmol/L (98-107); Estimated GFR (African America 32 (>=60 mL/min/1.73m^2); Estimated GFR (Non-African Ame 27 (>=60 mL/min/1.73m^2); Glucose 337 mg/dL (74-106); Potassium 3.6 mmol/L (3.5-5.1); Sodium 137 mmol/L (136-145)
[2025-03-02 09:57] LABS: Chol HDL Ratio 2.4; Cholesterol 136 mg/dL (<=200); HDL Cholesterol 56 mg/dL (40-60); LDL Cholesterol Calculated 55.6 mg/dL; Triglycerides 122 mg/dL (<=150); VLDL CHOLESTEROL 24.4 mg/dL
== END 2025-03-02 07:50 | disposition home or self-care (01) ==
LOC: LAB 07:52
PROVIDERS: PCP Family Medicine; Visit Provider Internal Medicine Cardiovascular Disease
DX: I50.41 Acute combined systolic (congestive) and diastolic (congestive) heart failure (principal); E78.2 Mixed hyperlipidemia
CPT/HCPCS: 36415; 80048; 80061; 83735; 83880

== ENCOUNTER 2025-05-11 11:49 | Outpatient (OUT) | payer MEDICARE, SELFPAY ==
[2025-05-11 12:19] LABS: Anion Gap 13.5; BUN Creatinine Ratio 24.3; Calcium 8.6 mg/dL (8.5-10.1); Carbon Dioxide 27.7 mmol/L (21.0-32.0); Chloride 107 mmol/L (98-107); Estimated GFR (African America 44 (>=60 mL/min/1.73m^2); Estimated GFR (Non-African Ame 36 (>=60 mL/min/1.73m^2); Glucose 93 mg/dL (74-106); Potassium 4.2 mmol/L (3.5-5.1); Sodium 144 mmol/L (136-145)
[2025-05-11 12:23] LABS: Basophils Absolute Auto 0.1 10^3/uL (0.0-0.1); Basophils Percent Auto 1.2 % (0.2-2.0); Eosinophils Absolute Auto 0.2 10^3/uL (0.0-0.7); Eosinophils Percent Auto 2.7 % (0.9-7.0); Hematocrit 34.2 % (36.0-48.0); Hemoglobin 10.9 g/dL (12.0-16.0); Immature Granulocytes Abs Auto 0.03 10^3/uL (0.00-0.03); Immature Granulocytes Pct Auto 0.4 % (0.0-0.5); Lymphocytes Absolute Auto 1.4 10^3/uL (1.2-3.8); Mean Corpuscular HGB Conc 31.9 g/dL (29.9-35.2); Mean Corpuscular Hemoglobin 28.5 pg (26.7-34.0); Mean Corpuscular Volume 89.5 fL (81.0-99.0); Monocytes Absolute Auto 0.6 10^3/uL (0.3-0.8); Monocytes Percent Auto 7.5 % (1.7-12.0); Neutrophils Absolute Auto 6.1 10^3/uL (1.4-6.5); Neutrophils Percent Auto 72.2 % (43.0-75.0); Platelet Count 279 10^3/uL (150-450); Red Blood Count 3.82 10^6/uL (4.20-5.40); Red Cell Distribution Width 15.7 % (11.0-15.0); White Blood Count 8.5 10^3/uL (4.0-11.0)
== END 2025-05-11 11:50 | disposition home or self-care (01) ==
PROVIDERS: PCP Family Medicine; Visit Provider Internal Medicine Interventional Cardiology
DX: I50.32 Chronic diastolic (congestive) heart failure (principal); I48.0 Paroxysmal atrial fibrillation
CPT/HCPCS: 36415; 80048; 85025

== ENCOUNTER 2025-05-12 16:04 | Emergency (ER) | payer MEDICARE, SELFPAY ==
--- OUTSIDE RECORDS SUMMARY | 2024-07-02 03:00 | XMS_ITS ---
Author Organization [facility] Address [address] [place] [address] Care Team Providers Care Transportation Aid Name Role Phone Theodora Cuevas M.D. Primary Care Provider Unavail able Eloina Mullins Unavailable [phone] REASON FOR VISIT C4-7 ACDF Encounters Encounter Location Date Provider Diagnosis [facility] [address] [place] [address] 07/02/2024 Eloina Mullins Plan Of Treatment No Information Progress Notes * JOE CALL GDOB:1945 (79 yo F)Acc No.[id number]:07/02/2024 Patient: Dulce GAVIN JOE G Provider: Mariama Le MD, PhD :1945 A ge:78 Y S ex:Female Date:07/02/2024 Address:[address] [place], [id number] Pcp:Theodora Cuevas M.D. * Images: * Electronic signature of Selv bonnie Mullins MD, PHD on 05/12/2025 at 04:13 PM EDT Sign off status: Pending * Provider: Mariama Le MD, PhD Date: 07/02/2024 Generated for Printi ng/Faxing/eTransmitting on: 05/12/2025 04:13 PM EDT
--- OUTSIDE RECORDS SUMMARY | 2024-07-15 16:21 | XMS_ITS ---
Author Organization The [facility] in [place] Address [address] [place] [address] Care Team Providers Care Antenna Design Engineer Name Role Phone Theodora Cuevas Primary Care Provider Harman Boucher [phone] REASON FOR VISIT NOT A [facility] PATIENT Encounters Encounter Location Date Provider Diagnosis [facility] Medicine [address] [place] [address] 07/15/2024 Harman Morales Plan Of Treatment No Information Progress Notes * Kati LUEVANO GDOB:1945 (79 yo F)Acc No.[id number]:07/15/2024 Patient: Kati JACK :1945 A ge:79 Y S ex:Female Address:[address] [place], [address] * true * Date: Generated for Joannei santy/Fathig/eTransmitting on: 0 05/12/2025 04:14 PM EDT
--- OUTSIDE RECORDS SUMMARY | 2024-08-15 07:40 | XMS_ITS ---
Author Organization [facility] Address [address] [place] [address] Care Team Providers Care Circular Knife Machine Cutter Name Role Phone Theodora Cuevas M.D. Primary Care Provider Unavail able Eloina Mullins Unavailable [phone] REASON FOR VISIT C4-7 ACDF Encounters Encounter Location Date Provider Diagnosis [facility] [address] [place] [address] [address] [place] [address] 08/15/2024 Eloina Mullins Plan Of Treatment No Information Progress Notes * JOE CALL GDOB:1945 (79 yo F)Acc No.[id number]:08/15/2024 Progress Notes Patient: JOE JACK Provider: Mariama Le MD, PhD :1945 A ge:79 Y S ex:Female Date:08/15/2024 Address:[address] [place], [id number] Pcp:Theodora Cuevas M.D. Subjective: * Chief Complaints: * 1 . C4-7 ACDF. * Medical History: Objective: * Vitals: Assessment: Plan: * Treatment: Forms: * Images: * Electronic signature of Dale Mullins MD, PHD on 05/12/2025 at 04:14 PM EDT Sign off status: Pending * Provider: Mariama Le MD, PhD Date: 1 Generated for Bennie madera/Costa/eTransmitting on: 0 05/12/2025 04:14 PM EDT
--- OUTSIDE RECORDS SUMMARY | 2025-05-12 16:13 | XMS_ITS | Encounter Summary ---
Author Organization [facility] Address [address] [place] [address] Care Team Providers Care Hepatologist Name Role Phone Theodora Cuevas MD Primary Care Provider [phone] Encounter Details Date Type Department Care Team (Late st Contact Info) Description 05/07/2025 Telephone [facility] [address] [place] [address] Mary Carson RN Social History Tobacco Use Types Packs/Day Years Used Date Smoking Tobacco: Former Cigarettes Smokeless Tobacco: Never Alcohol Use Standard Drinks/Week Comments Not Currently 0 (1 standard drink = 0.6 oz pur e alcohol) OK Safety & Environment Answer Date Rec orded Fear of Current or Ex-Partner Not on file Emotionally Abused Not on file 01/03/2024 Physically Abused Not on file 01/03/2024 Sexually Abused Not on file 01/03/2024 Physically or Sexually Abused Not on file Comments Unknown Sex and Gender Information Value Date Recorded Sex Assigned at Female 12/01/2024 12:32 PM EST Legal Sex Female 10:15 PM EDT Gender Identity Female 12/01/2024 12:32 PM EST Sexual Orientation Heterosexual or Straight 11/13 12:32 PM EST documented as of this encounter Plan of Treatment Upcoming Encounters Date Type Department Care Team (Late st Contact Info) Description 05/14/2025 11:30 AM EDT Appointment [facility] [address] [place] [address] documented as of this encounter Visit Diagnoses Not on filedocumented in this encounter Care Teams Hepatologist Relationship Specialty Start Date End Date Theodora Cuevas MD [address] [facility]A PCP - General 07/20/22 documented as of this encounter
--- OUTSIDE RECORDS SUMMARY | 2025-05-12 16:13 | XMS_ITS | Referral Summary ---
Author Organization [facility] Address [address] [place] [address] Care Team Providers Care Filling Hauler Weaving Name Role Phone Theodora Cuevas MD Primary Care Provider [phone] Encounters Date Type Department Care Team Description 05/07/2025 Travel 05/07/2025 Telephone [facility] V[facility] Vascular Lab [address] [place] [id number] Mary Carson RN 04/27/[address] [address] Angelica Valencia MA 04/22/2025 11:00 AM EDT Office Visit [address] [address] Akira Kaplan MD Chronic diastolic congestive heart failure (CMS/HCC) (Primary Dx); Paroxysmal atrial fibrillation (CMS/HCC); Coronary artery disease involving [place] coronary artery of [place] heart without angina pectoris; Impairment of balance; Recurrent falls 04/14/[address] [address] Angelica Valencia MA Chronic diastolic heart failure (CMS/HCC) 03/02/2025 Orders Only [address] [address] Angelica Valencia MA 03/02/[address] [address] Angelica Valencia MA 03/02/2025 11:00 AM EDT Office Visit [facility] [address] [place] [address] Byron Lambert MD Chronic diastolic congestive heart failure (CMS/HCC) (Primary Dx); Paroxysmal atrial fibrillation (CMS/HCC); Atherosclerosis of [place] coronary artery of [place] heart without angina pectoris; Primary hypertension; Stage 3 chronic kidney disease, unspecified whether stage 3a or 3b CKD (CMS/HCC); Morbid obesity (CMS/HCC); Type 2 diabetes mellitus with hyperglycemia, with long-term current use of insulin (CMS/HCC); Pure hypercholesterolemia; Pulmonary hypertension (CMS/HCC) from Last 3 Months Allergies Active Allergy Reactions Criticality Noted Date Comments Chocolate Flavor 01/16/2023 Iodinated Contrast Media Rash,Unknown Low Iodine Other 10/30/2014 Metformin Hcl Unknown 07/03/2024 Other Reaction(s): diarrhea Shellfish Derived Other 10/30/2014 Sulfa (Sulfonamide Antibiotics) Other 10/30/2014 Medications atorvastatin (Lipitor) 20 mg tablet Take 1 tablet every day by oral route. Active cholecalciferol (Vitamin D-3) 25 MCG (1000 UT) capsule Take 1 capsule every day by oral route. Active insulin asp prt-insulin aspart (NovoLOG Mix 70-30) 100 unit/mL (70-30) injection INJECT 30 UNITS SUBCUTANEOUSLY IN THE MORNING then INJECT 20 UNITS SUBCUTANEOUSLY IN THE EVENING Active levothyroxine (Synthroid, Levoxyl) 112 mcg tablet Take 125 mcg by mouth before breakfast. Active vit A/vit C/vit E/zinc/copper (PRESERVISION AREDS ORAL) Take 1 tablet by mouth twice a day. Active famotidine (Pepcid) 20 mg tablet Take 20 mg by mouth if needed at bedtime. 01/14/20 23 Active insulin glargine (Lantus Solostar U-100 Insulin) 100 unit/mL (3 mL) pen Inject 25 Units under the skin at bedtime. 09/21/20 22 Active ALPRAZolam (Xanax) 0.25 mg tablet TAKE 1 TABLET BY MOUTH THREE TIMES DAILY NEEDED MUST LAST 30 DAYS 06/20/20 23 Active rivaroxaban (Xarelto) 20 mg tabletIndication s:Paroxysmal atrial fibrillation (CMS/HCC) Take 1 tablet (20 mg) by mouth daily with evening meal. Take with food. 14 tablet 03/17/20 24 Active NovoLIN N FlexPen 100 unit/mL (3 mL) injection pen INJECT SUBCUTANEOUSLY THREE TIMES DAILY according to sliding scale (if BLOOD SUGAR is BETWEEN 150-199 INJECT 3 (THREE) UNITS, if BETWEEN 200-249 INJECT FOUR UNITS, if BETWEEN 250-299 INJECT 7 (SEVEN) UNITS, if BETWEEN 300-349 INJECT TEN UNITS, if BETWEEN 350-399 INJECT 12 UNITS, if 400 or great INJECT 14 UNITS) Active dilTIAZem CD (Cardizem CD) 120 mg 24 hr capsuleIndicatio ns:Chronic diastolic heart failure (CMS/HCC) Take 1 capsule (120 mg) by mouth in the morning. 30 capsule 11 10/31/20 24 025 Active diphenoxylate-at ropine (Lomotil) 2.5-0.025 mg tablet Take 1 tablet by mouth if needed in the morning, at noon, in the evening, and at bedtime. 01/28/20 25 Active magnesium oxide (Mag-Ox) 400 mg tablet 400 mg three times daily. Active busPIRone (Buspar) 5 mg tablet Take 1 tablet by mouth Twice daily at 6am and 6pm. 01/06/20 25 Active DULoxetine (Cymbalta) [address] capsule Take 1 capsule by mouth in the morning. 01/06/20 25 Active omeprazole (PriLOSEC) [address] capsule Take 1 capsule by mouth in the morning. 01/06/20 25 Active propranolol (Inderal) 40 mg tablet Take 1 tablet by mouth Twice daily at 6am and 6pm. 12/26/19 25 Active sucralfate (Carafate) 1 gram tablet Take 1 g by mouth before breakfast, before lunch, before evening meal, and at bedtime. 01/15/20 25 Active nystatin (Mycostatin) 100,000 unit/gram powder 1,000 Applications in the morning. to affected area 01/28/20 25 Active furosemide (Lasix) 40 mg tabletIndication s:Chronic diastolic heart failure (CMS/HCC) Take 1 tablet (40 mg) by mouth in the morning. 90 tablet 3 04/14/20 25 026 Active furosemide (Lasix) 40 mg tabletIndication s:Chronic diastolic heart failure (CMS/HCC) Take 1 tablet (40 mg) by mouth if needed (For legs edema or for weight gain 2 pounds overnight or 4 to 5 pounds over 1 week). 10/31/20 24 025 Discontin ued(Reord er) Active Problems Problem Noted Date Diagnosed Date BMI 40.0-44.9, adult 12/02/2024 Epigastric pain 12/02/2024 Urine retention 12/02/2024 Arthrodesis status 10/31/2024 CHF (congestive heart failure) 08/20/2024 Dehydration 08/20/2024 Mass of right axilla 08/20/2024 LPRD (laryngopharyngeal reflux disease) 07/22/20 Throat tightness 07/22/2024 Debility 07/10/2024 Ataxia 07/08/2024 Balance disorder 07/08/2024 Essential tremor 07/08/2024 Paresthesia 07/08/2024 Acquired hammer toe of right foot 07/03/2024 Diabetic foot 07/03/2024 Diabetic peripheral neuropat hy associated with type 2 diabetes mellitus 07/03/2024 Disability of walking 07/03/2024 Type 2 diabetes mellitus wit h hyperglycemia, with long-term current use of insulin 07/03/2024 Venous insufficiency (chronic) (peripheral) 06/13 Tremor 06/18/2024 Abdominal swelling, generalized 05/20/2024 Anxiety 05/20/2024 Back pain with history of spinal surgery 024 Cervical disc disease 05/20/2024 Chalazion of right eye 05/20/2024 Dyspnea 05/20/2024 Hordeolum externum (stye) 05/20/2024 Immunization due 05/20/2024 Lactose intolerance 05/20/2024 detention (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 insulin 05/20/2024 Lumbar degenerative disc disease 05/20/2024 Lumbar spondylosis 05/20/2024 Lymph edema 05/20/2024 Macular degeneration 05/20/2024 Memory changes 05/20/2024 Osteoarthritis 05/20/2024 Secondary hyperparathyroidism 05/20/2024 Stress incontinence of urine 05/20/2024 Thrush of mouth and esophagus 05/20/2024 Urinary incontinence 05/20/2024 UTI (urinary tract infection) 05/20/2024 Yeast cystitis 05/20/2024 CARMELO (acute kidney injury) 05/20/2024 Assessment & Plan (05/20/2024 4:35 PM EDT): BMP today to assess renal function and electrolytes Carotid bruit 01/16/2023 Chronic diarrhea 01/16/2023 Chronic low back pain 01/16/2023 Depressive disorder 01/16/2023 Diabetes mellitus 01/16/2023 Diabetic neuropathy 01/16/2023 Exocrine pancreatic insufficiency 01/16/2023 Gastroesophageal reflux disease 01/16/2023 Hypertension 01/16/2023 Hypomagnesemia 01/16/2023 Hypothyroidism 01/16/2023 Stage 3 chronic kidney disease 01/16/2023 Hyperlipidemia 01/16/2023 Atrial fibrillation 01/16/2023 Mixed hyperlipidemia 09/05/2022 Assessment & Plan (05/20/2024 4:31 PM EDT): Lipid abnormalities are unchanged. Pharmacotherapy as ordered. Continue lipitor Diastolic dysfunction 09/05/2022 Carotid artery stenosis 07/20/2022 Morbid obesity 07/20/2022 Aortic valve disorder 08/20/2012 Benign essential hypertension 04/02/2012 Paroxysmal supraventricular tachycardia 03/26/20 12 Coronary atherosclerosis 03/20/2012 Assessment & Plan (05/20/2024 4:32 PM EDT): Coronary artery disease is unchanged. Continue current medications. Continue GDMT- lipitor, metoprolol continue risk factor modifications- heart healthy diet, regular exercise as tolerated and continue all medications. 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 NYHA Class II. Continue current treatment regimen. Dietary sodium restriction. Encouraged daily monitoring of the patient's weight. Continue current medications. Heart failure will be reassessed in 1 month. BMP to assess renal function and electrolytes today to see if can uptitrate GDMT- in light Lasix, lisinopril and aldactone on hold from recent hospitalization Social History Tobacco Use Types Packs/Day Years Used Date Smoking Tobacco: Former Cigarettes Smokeless Tobacco: Never Tobacco Cessation:Counseling Given: Not Answered Alcohol Use Standard Drinks/Week Comments Not Currently 0 (1 standard drink = 0.6 oz pur e alcohol) [place] Safety & Environment Answer Date Rec orded [...] Heterosexual or Straight 11/13 12:32 PM EST Last Filed Vital Signs Vital Sign Reading Time Taken Comments Blood Pressure 127/68 04/22/2025 11:14 AM EDT Pulse 63 03/02/2025 10:55 AM EDT Temperature - - Respiratory Rate 16 03/07/2024 2:24 PM EDT Oxygen Saturation 96% 04/22/2025 11:14 AM EDT Inhaled Oxygen Concentration - - Weight 115 kg (254 lb) 04/22/2025 11:14 AM EDT Height 162.6 cm (5' 4 ) 04/22/2025 11:14 AM EDT Body Mass Index 43.6 04/22/2025 11:14 AM EDT Plan of Treatment Upcoming Encounters Date Type Department Care Team (Late st Contact Info) Description 05/14/2025 11:30 AM EDT Appointment [facility] Heart and Vascular Center Vascular Lab [address] [place] [address] Insurance [employer] MEDICARE ADVANTAGE Care Teams Filling Hauler Weaving Relationship Specialty Start Date End Date Theodora Cuevas MD [address] [place] [address] #A PCP - General 07/20/22
--- OUTSIDE RECORDS SUMMARY | 2025-05-12 16:13 | XMS_ITS | Encounter Summary ---
Author Organization [facility] Address [address] [place] [address] Care Team Providers Care Supervisor Yard Name Role Phone Theodora Cuevas MD Primary Care Provider [phone] Encounter Details Date Type Department Care Team (Latest Contact Info) Description 05/07/2025 Travel Social History Tobacco Use Types Packs/Day Years Used Date Smoking Tobacco: Former Cigarettes Smokeless Tobacco: Never Alcohol Use Standard Drinks/Week Comments Not Currently 0 (1 standard drink = 0.6 oz pur e alcohol) [place] Safety & Environment Answer Date Rec orded [...] Info) Description 05/14/2025 11:30 AM EDT Appointment [facility] Heart and Vascular Center Vascular Lab [address] [place] [phone] documented as of this encounter Visit Diagnoses Not on filedocumented in this encounter Care Teams Supervisor Yard Relationship Specialty Start Date End Date Theodora Cuevas MD [address] #A PCP - General 07/20/22 documented as of this encounter
--- OUTSIDE RECORDS SUMMARY | 2025-05-12 16:13 | XMS_ITS | Clinical Summary ---
Author Organization [facility] Address [address] [place] [address] Care Team Providers Care Rn Birthing Name Role Phone Theodora Cuevas MD Primary Care Provider [phone] Allergies Active Allergy Reactions Criticality Noted Date Comments Chocolate Flavor 01/16/2023 Iodinated Contrast Media Rash,Unknown Low 4 Iodine Other 10/30/2014 Metformin Hcl Unknown 07/03/2024 [...] 05/20/2024 Immunization due 05/20/2024 Lactose intolerance 05/20/2024 exterminator (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 insulin 05/20/2024 Lumbar degenerative [...] and aldactone on hold from recent hospitalization Encounters Date Type Department Care Team Description 05/07/2025 Travel 05/07/2025 Telephone [facility] Heart and Vascular Center Vascular Lab [address] [place] [phone] Mary Carson RN 04/27/2025 Refill [facility] [place] [address] [place] [address] Angelica Valencia MA 04/22/2025 11:00 AM EDT Office Visit [facility] [place] [address] [place] [address] Akira Kaplan MD Chronic diastolic congestive heart failure (CMS/HCC) (Primary Dx); Paroxysmal atrial fibrillation (CMS/HCC); Coronary artery disease involving [place] coronary artery of [place] heart without angina pectoris; Impairment of balance; Recurrent falls 04/14/2025 Refill [facility] [address] [place] [address] Angelica Valencia MA Chronic diastolic heart failure (CMS/HCC) 03/02/2025 11:00 AM EDT Office Visit [facility] [address] [place] [facility] [address] Byron Lambert MD Chronic diastolic congestive heart failure (CMS/HCC) (Primary Dx); Paroxysmal atrial fibrillation (CMS/HCC); Atherosclerosis of [place] coronary artery of [place] heart without angina pectoris; Primary hypertension; Stage 3 chronic kidney disease, unspecified whether stage 3a or 3b CKD (CMS/HCC); Morbid obesity (CMS/HCC); Type 2 diabetes mellitus with hyperglycemia, with long-term current use of insulin (CMS/[facility]); Pure hypercholesterolemia; Pulmonary hypertension (CMS/HCC) 03/02/2025 Orders Only [facility] [address] [place] [address] Angelica Valencia MA 03/02/2025 Telephone [facility] [address] [place] [facility] [address] Angelica Valencia MA from Last 3 Months Family History Medical History Relation Name Comments Heart attack Father Heart disease Mother Coronary artery disease Other Diabetes Other Polycystic kidney disease Other Relation Name Status Comments Brother Father Mother Other Sister Social History Tobacco Use Types Packs/Day Years Used Date Smoking Tobacco: Former Cigarettes Smokeless Tobacco: Never Tobacco Cessation:Counseling Given: Not Answered Alcohol Use Standard Drinks/Week Comments Not Currently 0 (1 standard drink = 0.6 oz pur e alcohol) [place] Safety & Environment Answer Date Rec orded [...] Info) Description 05/14/2025 11:30 AM EDT Appointment [facility] Heart and Vascular Center Vascular Lab [address] [place] [address] Health Maintenance Due Date Last Done Comments Diabetes: Hemoglobin A1C 1945 Medicare Annual Wellness (AWV) 1945 Diabetes: Retinopathy Screening 1956 Depression Screening 1958 Pneumococcal Vaccine: 50+ Years (1 of 2 - PCV) 1965 Adult Tetanus 1968 Zoster Vaccines (1 of 2) 1996 08/24/2009 Fall Risk Screening 2011 COVID-19 Vaccine ( season) 2024 09/28/2023, 10/28/2022, 10/03/2021, Additional history exists Influenza Vaccine (Season Ended) 2025 08/28/2016, 08/30/2009 HIB Vaccines Aged Out No longer eligi ble based on patient's age to complete this topic HPV Vaccines Aged Out No longer eligi ble based on patient's age to complete this topic IPV Vaccines Aged Out No longer eligi ble based on patient's age to complete this topic Meningococcal B Vaccine Aged Out No l onger eligible based on patient's age to complete this topic Meningococcal Vaccine Aged Out No daniele romeo eligible based on patient's age to complete this topic Rotavirus Vaccines Aged Out No longer eligible based on patient's age to complete this topic Insurance [employer] MEDICARE ADVANTAGE Care Teams Rn Birthing Relationship Specialty Start Date End Date Theodora Cuevas MD [address] [place] [address] #A PCP - General 07/20/22
[2025-05-12 16:14] VITALS: BP 178/81; PULSE 64; TEMP 36.8; O2SAT 97; BMI 43.9
--- OUTSIDE RECORDS SUMMARY | 2025-05-12 16:14 | XMS_ITS | Clinical Summary ---
Author Organization [facility] Address [address] [place] [address] Care Team Providers Care Adjunct Faculty Instructor Name Role Phone Theodora Cuevas MD Primary Care Provider [phone] Allergies Active Allergy Reactions Criticality Noted Date Comments Shellfish-Derived Products 8 Sulfa Antibiotics 03/15/2018 Medications rivaroxaban (XARELTO) 20 MG TABS tablet Take 20 mg by mouth Active lidocaine (LMX) 4 % creamIndications :Lumbosacral spondylosis without myelopathy Apply a half dollar sized amount to intact skin topically up to twice daily as needed for pain 1 Tube 1 0 Active Active Problems No known active problems Social History Tobacco Use Types Packs/Day Years Used Date Smoking Tobacco: Never Smokeless Tobacco: Never Alcohol Use Standard Drinks/Week Comments Not Currently 0 (1 standard drink = 0.6 oz pur e alcohol) Comments Unknown Sex and Gender Information Value Date Recorded Sex Assigned at Not on file Legal Sex Female 4:37 PM EST Gender Identity Not on file Sexual Orientation Not on file Last Filed Vital Signs Vital Sign Reading Time Taken Comments Blood Pressure - - Pulse - - Temperature 36.2 C (97.1 F) 08/09/2020 1:24 PM EDT Respiratory Rate - - Oxygen Saturation - - Inhaled Oxygen Concentration - - Weight 118.4 kg (261 lb) 08/09/2020 1:24 PM EDT Height 167.6 cm (5' 6 ) 08/09/2020 1:24 PM EDT Body Mass Index 42.13 08/09/2020 1:24 PM EDT Plan of Treatment Not on file Insurance [employer] MEDICARE Care Teams Adjunct Faculty Instructor Relationship Specialty Start Date End Date Theodora Cuevas MD PCP - General Family Medicine 02/13/18
--- OUTSIDE RECORDS SUMMARY | 2025-05-12 16:14 | XMS_ITS | Patient Health Record ---
Author Organization [facility] [place] Address [address] [place] [address] Care Team Providers Care Beer Still Runner Compounder Name Role Phone Theodora Cuevas Primary Care Provider Harman Boucher [phone] Results Component Value Reference Range Notes UA RANDOM W or MICROSCOPIC Reviewed date:07/15/2024 08:21:48 PM Interpretation: Performing Lab: Notes/Report: [facility] , Color Urine LT. YELLOW YELLOW Clarity Urine CLEAR CLEAR Specific [place] Urine 1.020 1.005-1.025 pH Urine 6.5 5.0-9.0 Protein Urine 100 NEG/TRACE mg/dL Glucose Urine UA NEGATIVE NEGATIVE mg/dL Bilirubin Urine NEGATIVE NEGATIVE Ketones Urine NEGATIVE NEGATIVE mg/dL Blood Urine TRACE-I NEGATIVE Nitrite Urine NEGATIVE NEGATIVE Urobilinogen Urine 0.2 0.2-1.0 EU/dL Leukocyte Esterase Urine NEGATIVE NEGATIVE WBC Urine NONE SEEN NONE SEEN #/HPF RBC Urine 0-2 0-2 #/HPF Bacteria Urine NONE SEEN NONE SEEN #/HPF Mucus Urine NONE SEEN NONE SEEN Squamous Epithelial Cell Urine FEW NONE/RARE #/LPF Performing Lab: see note ML - [facility] LB Urine Culture, Routine Reviewed date:07/17/2024 06:09:06 PM Interpretation: Performing Lab: Notes/Report: [facility] , Urine Culture, Routine See Below For Report Urine Culture, Routine Urine Culture, Routine Mixed urogenital court Urine Culture, Routine Urine Culture, Routine Less than 10,000 colonies/mL Urine Culture, Routine Urine Culture, Routine Performed at: [facility] Culture, Routine Urine Culture, Routine [address] [place], [place] [id number] Urine Culture, Routine Urine Culture, Routine Poacher Wringer Operator: Elio Landis PhD, Phone: [phone] Urine Culture, Routine Performing Lab: see note SEE REPORT - Wind Site Manager Id information not found for OBX-specific air table operator legend LC - [facility] LB Reason For Referral No Information Problems Problem Type SNOMED Code ICD Code Onset Dates Problem Status W/U Status Risk Notes Problem Hypomagnesemia (940352873) Hypomagnesemia (E83.42) Active confirmed Problem Atrial fibrillation (97441220) Atrial fibrillation (I48.91) Active confirmed Problem Hypertension (07387056) Hypertension (I10) Active confirmed Problem Congestive heart failure (13251109) CHF (congestive heart failure) (I50.9) Active confirmed Problem Gastroesophageal reflux disease (174733305) GERD (gastroesophageal reflux disease) (K21.9) Active confirmed Problem Hypothyroidism (37342803) Hypothyroidism (E03.9) Active confirmed Problem Diabetes mellitus type 2 (disorder) (13401268) DM2 (diabetes mellitus, type 2) (E11.9) Active confirmed Problem Acquired hypothyroidism (325230977) Acquired hypothyroidism (E03.9) Active confirmed Problem Iron deficiency anemia (56937955) Anemia, iron deficiency (D50.9) Active confirmed Problem Hyperglycemia due to type 2 diabetes mellitus (035018782925186) Diabetes mellitus with hyperglycemia (E11.65) Active confirmed Problem Acute on chronic systolic heart failure (212043172) Acute on chronic clinical systolic heart failure (I50.23) Active confirmed Problem Diabetes mellitus (10171914) Diabetes mellitus (E11.9) Active confirmed Encounters Encounter Location Date Provider Diagnosis [facility] ([place], [place]) [address] [place] [address] 07/15/2024 Harman Morales Plan Of Treatment No Information Insurance Providers Payer Name Payer Address Payer Phone Subscriber Number Group Number Insured Name Patient Relationship to Insured Coverage Start Date Coverage End Date [employer] MEDICARE ADV PLAN [address] [address] [place] [address] 1 [id number] Kati Luevano Self - patient is the insured 4
--- OUTSIDE RECORDS SUMMARY | 2025-05-12 16:14 | XMS_ITS | Clinical Summary ---
Author Organization [facility] Address [id number] [address] [place] [address] Care Team Providers Care Ip Technology Transactions Attorney Name Role Phone Theodora Cuevas MD Primary Care Provider [phone] Allergies Active Allergy Reactions Criticality Noted Date Comments Shellfish Derived Hives 10/04/2022 Pt unsure if iodine can be used on the skin Sulfa (Sulfonamide Antibiotics) 04/15/2021 Medications atorvastatin (LIPITOR) 20 mg tablet Take 1 tablet (20 mg total) by mouth in the morning. Active vitamins A,C,E-zinc-romel er (ICAPS AREDS) 14,320-226-200 [id number] capsule Take 2 capsules by mouth in the morning and 2 capsules before bedtime. Active omega 5-woo-rky-fish oil 300-1,000 mg capsule Take by mouth. Active garlic 100 mg tablet Take by mouth. Active cyanocobalamin (vitamin B-12) 100 MCG tablet Take 1 tablet (100 mcg total) by mouth in the morning. Active dilTIAZem (CARDIZEM) 120 MG tablet Take 1 tablet (120 mg total) by mouth in the morning. Active rivaroxaban (XARELTO) 20 mg tablet tablet Take 1 tablet (20 mg total) by mouth in the morning. Active lisinopriL (PRINIVIL,ZESTR IL) 10 mg tablet Take 2 tablets (20 mg total) by mouth in the morning. Active levothyroxine sodium (TIROSINT) 112 mcg capsule Take 1 capsule (112 mcg total) by mouth in the morning. Active METOPROLOL TARTRATE ORAL Take 150 mg by mouth 2 (two) times a day. Active spironolactone (ALDACTONE) 25 mg tablet Take 1 tablet (25 mg total) by mouth in the morning. 09/24/2022 Active LANTUS SOLOSTAR U-100 INSULIN 100 unit/mL (3 mL) insulin pen Inject 35 Units under the skin nightly. At supper 09/21/2022 Active selenium 50 mcg tablet Take 1 tablet (50 mcg total) by mouth in the morning. Active Active Problems No known active problems Immunizations Immunization Administration Dates Next Due SARS-COV-2 (COVID-19) Vaccine, Unspecified 01/07,12/16/2020 Family History Medical History Relation Name Comments Diabetes Father Glaucoma Father Heart disease Father Macular degeneration Father Relation Name Status Comments Father Social History Tobacco Use Types Packs/Day Years Used Date Smoking Tobacco: Never Smokeless Tobacco: Never Tobacco Cessation:Counseling Given: Not Answered Alcohol Use Standard Drinks/Week Comments Not Currently 0 (1 standard drink = 0.6 oz pur e alcohol) Childcare Answer Date Recorded Childcare Unknown 04/23/2019 Employment Answer Date Recorded Employment Unknown 04/23/2019 Purpose - Life Answer Date Recorded Purpose and direction in life Unknown Comments No Sex and Gender Information Value Date Recorded Sex Assigned at Not on file Legal Sex Female 11:30 AM EDT Gender Identity Not on file Sexual Orientation Not on file Last Filed Vital Signs Vital Sign Reading Time Taken Comments Blood Pressure 168/76 10/26/2022 9:06 AM EST Pulse 63 10/26/2022 9:06 AM EST Temperature 36.1 C (97 F) 10/26/2022 8:53 AM EST Respiratory Rate 14 10/26/2022 9:06 AM EST Oxygen Saturation 95% 10/26/2022 9:06 AM EST Inhaled Oxygen Concentration - - Weight 115.7 kg (255 lb) 10/26/2022 7:17 AM EST Height 162.6 cm (5' 4 ) 10/26/2022 7:17 AM EST Body Mass Index 43.77 10/26/2022 7:17 AM EST Plan of Treatment Health Maintenance Due Date Last Done Comments Depression Screening 1957 Tobacco Screening 1957 DTaP,Tdap and Td Vaccines (1 - Tdap) 1965 Zoster (Shingles) Vaccine (2 of 3) 10/19/2009 08/24/2009 Fall Risk Screening 2011 COVID-19 Vaccine (4 - 2023-2 5 season) 2024 10/03/2021, 01/07/2021, 01/07/2021, Additional history exists Influenza Vaccine 2025 08/28/2016, 08/30/2009 Medical Devices Implanted Type Area Icebox Man Device Identifier Shelf Expiration Date Model / Serial / Lot Lens Iol Ultrasert 24.0d - [id number] - [id number] Implanted:Qty: 1 on 04/26/2021 by Renate Michaels MD at [facility] Lens Right: Eye [employer] 03/18/2023 [id number] 24.0 / [id number] / NA Lens Iol Ultrasert 22.5d - [id number] - [id number] Implanted:Qty: 1 on 10/26/2022 by Renate Michaels MD at [facility] Lens [employer] 05/08/2025 [id number] 22.5 / [id number] / NA Insurance [employer] MEDICARE Care Teams Ip Technology Transactions Attorney Relationship Specialty Start Date End Date Theodora Cuevas MD [facility] [place] [address] PCP - General Family Medicine 04/26/21
--- OUTSIDE RECORDS SUMMARY | 2025-05-12 16:14 | XMS_ITS | Clinical Summary ---
Author Organization [facility] Address [address] [facility] [place] [address] Care Team Providers Care Signaling Project Engineer Name Role Phone Theodora Cuevas MD Primary Care Provider [phone] Allergies Active Allergy Reactions Criticality Noted Date Comments Chocolate Flavoring Agent (Non-Screening) 01/16/2023 Iodinated Contrast Media Rash Low 02/15/2024 Other Reaction(s): Unknown Iodine Other,Unknown 10/30/2014 Metformin Hcl 07/03/2024 Other Reaction(s): diarrhea Shellfish-Derived Products 8 Sulfa Antibiotics 10/30/2014 Other Reaction(s): diarrhea, GI problems, Other, Rash Medications ALPRAZolam (Xanax) 0.25 MG tablet Take 0.25 mg by mouth as needed at bedtime 06/07/20 24 Active atorvastatin (Lipitor) 20 MG tablet Take 20 mg by mouth in the morning. Active Probiotic Product (Align) 4 MG capsule Take 1 capsule by mouth Daily 06/05/20 24 Active biotin 10 MG capsule Take 1 capsule by mouth Daily 06/05/20 24 Active cholecalciferol (Vitamin D-3) 25 MCG (1000 UT) capsule Take 25 mcg by mouth Daily 06/05/20 24 Active dilTIAZem CD (Cardizem CD) 120 MG 24 hr capsule Take 120 mg by mouth Daily 12/07/19 24 Active Basaglar KwikPen 100 UNIT/ML pen Inject 20 Units under the skin in the morning and 20 Units before bedtime. 06/13/20 24 Active levothyroxine (Synthroid, Levoxyl) 125 MCG tablet Take 125 mcg by mouth in the morning. Take before meals. 06/07/20 24 Active metoprolol tartrate (Lopressor) 100 MG tablet Take 1.5 tablets by mouth in the morning and 1.5 tablets before bedtime. 06/07/20 24 Active insulin NPH, Isophane, (HumuLIN N,NovoLIN N) 100 UNIT/ML injection Inject 1 Units under the skin 01/24/20 Active nystatin (Mycostatin) cream Apply 1 application topically if needed 06/05/20 24 Active rivaroxaban (Xarelto) 20 MG tablet Take 20 mg by mouth in the evening. Take with meals 03/17/20 24 Active spironolactone (Aldactone) 50 MG tablet Take 50 mg by mouth Daily 03/28/20 24 Active oxyCODONE-acetamin ophen (Percocet) 5-325 MG tablet Take 1 tablet by mouth in the morning and 1 tablet before bedtime. Active gabapentin (Neurontin) 100 MG capsuleIndications :Diabetic polyneuropathy associated with type 2 diabetes mellitus (HCC),Paresthesias Take 1 capsule (100 mg) by mouth in the morning and 1 capsule (100 mg) in the evening and 1 capsule (100 mg) before bedtime. 30 capsule 2 07/10/20 24 Active bumetanide (Bumex) 1 MG tablet Take 1 mg by mouth in the morning and 1 mg in the evening. 06/18/20 24 025 Active Lantus 100 UNIT/ML injection Inject 35 Units under the skin in the morning. 03/13/20 24 Active lisinopril 10 MG tablet Take 20 mg by mouth in the morning. Active Multiple Vitamins-Minerals (PRESERVISION AREDS 2 PO) Take by mouth Acti ve omeprazole (PriLOSEC) [address] capsuleIndications :LPRD (laryngopharyngeal reflux disease) Take 1 capsule (40 mg) by mouth in the morning. Take before meals. Do not crush or chew.. 90 capsule 07/22/20 24 Active famotidine (Pepcid) 20 MG tabletIndications: LPRD (laryngopharyngeal reflux disease) Take 1 tablet (20 mg) by mouth at bedtime 90 tablet 07/22/20 Active Active Problems Problem Noted Date Diagnosed Date JED (obstructive sleep apnea) 07/22/2024 LPRD (laryngopharyngeal reflux disease) 07/22/20 Throat tightness 07/22/2024 Sensory ataxia 07/10/2024 Debility 07/10/2024 Weakness 07/10/2024 Paresthesias 07/10/2024 Essential tremor 07/08/2024 Balance disorder 07/08/2024 Ataxia 07/08/2024 Diabetic peripheral neuropathy 07/08/2024 Paresthesia 07/08/2024 Acquired hammer toe of right foot 07/03/2024 Diabetes mellitus 07/03/2024 Diabetic foot 07/03/2024 Diabetic peripheral neuropat hy associated with type 2 diabetes mellitus 07/03/2024 Disability of walking 07/03/2024 Hyperlipidemia 07/03/2024 Near syncope 07/03/2024 Hypertensive chronic kidney disease with stage 1 through stage 4 chronic kidney disease, or unspecified chronic kidney disease 07/03/2024 Type 2 diabetes mellitus wit h hyperglycemia, with long-term current use of insulin 07/03/2024 Venous insufficiency (chronic) (peripheral) 06/13 Tremor 06/18/2024 Abdominal swelling, generalized 05/20/2024 Acute on chronic diastolic CHF (congestive heart failure) 05/20/2024 Overview (07/03/2024): Last Assessment & Plan: Heart failure is unchanged. NYHA Class II. Continue current treatment regimen. Dietary sodium restriction. Encouraged daily monitoring of the patient's weight. Continue current medications. Heart failure will be reassessed in 1 month. BMP to assess renal function and electrolytes today to see if can uptitrate GDMT- in light Lasix, lisinopril and aldactone on hold from recent hospitalization CARMELO (acute kidney injury) 05/20/2024 Overview (07/03/2024): Last Assessment & Plan: BMP today to assess renal function and electrolytes Anxiety 05/20/2024 Back pain with history of spinal surgery 024 Cervical disc disease 05/20/2024 Chalazion of right eye 05/20/2024 Dyspnea 05/20/2024 Hordeolum externum (stye) 05/20/2024 Lumbar degenerative disc disease 05/20/2024 Lumbar spondylosis 05/20/2024 Lymph edema 05/20/2024 Macular degeneration 05/20/2024 Memory changes 05/20/2024 Secondary hyperparathyroidism 05/20/2024 Thrush of mouth and esophagus 05/20/2024 Carotid bruit 01/16/2023 Chronic diarrhea 01/16/2023 Chronic low back pain 01/16/2023 Depressive disorder 01/16/2023 Diabetic neuropathy 01/16/2023 Exocrine pancreatic insufficiency 01/16/2023 Gastroesophageal reflux disease 01/16/2023 Hypertension 01/16/2023 Hypomagnesemia 01/16/2023 Hypothyroidism 01/16/2023 Stage 3 chronic kidney disease 01/16/2023 Diastolic dysfunction 09/05/2022 Carotid artery stenosis 07/20/2022 Morbid obesity 07/20/2022 Aortic valve disorder 08/20/2012 Benign essential hypertension 04/02/2012 Paroxysmal supraventricular tachycardia 03/26/20 12 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 Continue current medications. Continue GDMT- lipitor, metoprolol continue risk factor modifications- heart healthy diet, regular exercise as tolerated and continue all medications. Diverticulitis of colon 03/20/2012 History of malignant neoplasm of breast 03/20/20 12 Lymphedema of left arm 03/20/2012 Obstructive sleep apnea syndrome 03/20/2012 Paroxysmal atrial fibrillation 03/20/2012 Psoriasis 03/20/2012 Resolved Problems Problem Noted Date Diagnosed Date Resolved Date Acute pain of left shoulder 07/03/2024 07/03/2024 Pharyngitis 07/03/2024 07/03/2024 CKD (chronic kidney disease), stage IV 07/03/2024 07/03/2024 Lactose intolerance 05/20/2024 07/03/20 24 retirement (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 insulin 05/20/2024 07/03/2024 Stress incontinence of urine 05/20/2024 07/03/2024 Urinary incontinence 05/20/2024 024 UTI (urinary tract infection) 05/20/2024 07/03/2024 Yeast cystitis 05/20/2024 07/03/2024 Family History Medical History Relation Name Comments Coronary artery disease Father Heart failure Father Coronary artery disease Mother Heart failure Mother Alzheimer's disease Sister Relation Name Status Comments Brother Daughter 1 Alive Daughter 2 Father Mother Sister Son 1 Alive Son 2 Alive Social History Tobacco Use Types Packs/Day Years Used Date Smoking Tobacco: Former Cigarettes Smokeless Tobacco: Never Tobacco Cessation:Counseling Given: Not Answered Alcohol Use Standard Drinks/Week Comments Never 0 (1 standard drink = 0.6 oz pur e alcohol) caffeine: 1-2 cups per day Comments Unknown Sex and Gender Information Value Date Recorded Sex Assigned at Not on file Legal Sex Female 7:17 PM EDT Gender Identity Not on file Sexual Orientation Not on file Last Filed Vital Signs Vital Sign Reading Time Taken Comments Blood Pressure 138/110 10/01/2024 9:51 AM EST Pulse 69 07/04/2023 9:40 AM EDT Temperature - - Respiratory Rate 18 07/04/2023 9:40 AM EDT Oxygen Saturation 95% 07/04/2023 9:40 AM EDT Inhaled Oxygen Concentration - - Weight 115 kg (254 lb) 10/01/2024 9:51 AM EST Height 165.1 cm (5' 5 ) 10/01/2024 9:51 AM EST Body Mass Index 42.27 10/01/2024 9:51 AM EST Plan of Treatment Health Maintenance Due Date Last Done Comments Influenza Vaccine (Season Ended) 2025 09/04/2023, 10/09/2018, 08/28/2016, Additional history exists Pneumococcal Vaccine: 65+ Years Completed , 11/12/[address] [facility] MEDICARE ADVANTAGE Care Teams Signaling Project Engineer Relationship Specialty Start Date End Date Theodora Cuevas MD PCP - General Family Medicine 06/25/24
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
--- OUTSIDE RECORDS SUMMARY | 2025-05-12 16:14 | XMS_ITS | Clinical Summary ---
Author Organization [facility] Address [address] [place] [address] Care Team Providers Care Utility Plant Operative Name Role Phone Jose Francisco Ross DO Primary Care Provider [phone] Social History Tobacco Use Types Packs/Day Years Used Date Smoking Tobacco: Never Assessed Comments Unknown Sex and Gender Information Value Date Recorded Sex Assigned at Not on file Legal Sex Female 3:22 PM EDT Gender Identity Not on file Sexual Orientation Not on file Plan of Treatment Not on file Insurance [employer] MEDICARE Care Teams Utility Plant Operative Relationship Specialty Start Date End Date Jose Francisco Ross DO PCP - General Family Medicine 06/23/15
--- NOTE | 2025-05-12 16:28 | ED_ITS ---
HPI HPI - General Adult General Chief complaint: Fall Stated complaint: FALL/HEAD INJURY Time Seen by Provider: 05/12/25 16:19 Source: patient and family Mode of arrival: Wheelchair Limitations: no limitations History of Present Illness HPI narrative: The patient is a 79-year-old female who presents to the emergency department today for evaluation concerns for her. She endorses she tripped over her shoes and subsequently fell into a TV stand hitting the left forehead. She mention she is on Xarelto for history of A-fib. She denies any LOC. Otherwise no head/neck/back pain. She has any vision difficulties or dizziness. No chest pain, shortness of breath. She denies any injuries to her extremities. Related Data Home Medications ?Medication ?Instructions ?Recorded ?Confirmed insulin glargine 100 unit/mL (3 20 unit subcut BEDTIME 04/25/23 01/25/25 mL) subcutaneous pen (Lantus Solostar U-100 Insulin) alprazolam 0.25 mg tablet 0.25 mg PO TID PRN anxiety 0 04/30/24 01/25/25 levothyroxine 125 mcg tablet 125 mcg PO .acb 04/30/24 01/25/25 oxycodone-acetaminophen 5 mg-325 1 tab PO DAILY PRN pa in 04/30/24 01/25/25 mg tablet insulin NPH isoph U-100 human 100 1 unit subcut ACHS 0 06/09/24 01/25/25 unit/mL (3 mL) subcutaneous pen (Novolin N FlexPen) atorvastatin 20 mg tablet 20 mg PO QPM 06/18/24 biotin 10,000 mcg disintegrating 10,000 mcg PO DAILY 0 06/18/24 01/25/25 tablet cholecalciferol (vitamin D3) 125 125 mcg PO DAILY 06/0401/25/25 mcg (5,000 unit) tablet (Vitamin D3) rivaroxaban 20 mg tablet (Xarelto) 20 mg PO DAILY 06/0401/25/25 vit C 226 mg-vit E 90 mg-copper 1 cap PO BID 06/18/24 01/25/25 0.8 mg-zinc oxide-lutein 5 mg capsule (PreserVision Lutein) diltiazem HCl 120 mg 120 mg PO .QD 07/14/2401/25 capsule,extended release 24 hr famotidine 20 mg tablet 20 mg PO .qhs 07/24/2401/25 omeprazole 40 mg capsule,delayed 40 mg PO .acb 4 01/25/25 release buspirone 5 mg tablet 5 mg PO BID 01/25/25 5 duloxetine 20 mg capsule,delayed 20 mg PO DAILY 01/25/25 release ketoconazole 2 % shampoo 1 applic topical .2 TIMES WE EK 01/25/25 01/25/25 propranolol 40 mg tablet 40 mg PO BID 01/25/25 sucralfate 1 gram tablet 1 g PO AC 01/25/25 01/25/25 Previous Rx's ?Medication ?Instructions ?Recorded diphenoxylate-atropine 2.5 1 tab PO Q6H PRN Diarrhea 7 days 01/27/25 mg-0.025 mg tablet (Lomotil) #28 tabs magnesium oxide 400 mg (241.3 mg 400 mg PO TID 7 days #21 tabs 01/27/25 magnesium) tablet nystatin 100,000 unit/gram topical 1 applic topical BI D 30 days #60 01/27/25 powder (Nystop) grams potassium chloride 10 mEq 20 meq (2 x 10 mEq) PO BID 7 days 01/27/25 tablet,extended release(part/cryst) #28 tabs Allergies Allergy/AdvReac Type Severity Reaction Status Date / Time Iodinated Contrast Media Allergy Intermediate Hives Verified 05/12/25 16:14 shellfish derived Allergy Intermediate Hives Verified 05/12/25 16:14 Sulfa (Sulfonamide Allergy Rash Verified 05/12/25 16:14 Antibiotics) Opioid HPI Opioid Management Most Recent Opioid Data: Last Pain Scale 4 01/25/25, 22:55 Last Pain Intensity 3 06/09/24, 13:07 Last ORT Total Score 0 01/25/25, 07:49 Last ORT Risk Category Low Risk 01/25/25, 07:49 Review of Systems ROS Status of ROS 10 or more systems reviewed and unremark able except as noted in history and below [facility] Medical History (Updated 05/12/25 @ 17:33 by Pamela Renteria NP) CHF (congestive heart failure) ?I50.9 - Heart failure, unspecified (ICD-10) GERD without esophagitis ?K21.9 - Gastro-esophageal reflux disease without esophagitis (ICD-10) Anxiety ?F41.9 - Anxiety disorder, unspecified (ICD-10) Intermittent palpitations ?R00.2 - Palpitations (ICD-10) Acute hyperglycemia ?R73.9 - Hyperglycemia, unspecified (ICD-10) Acute kidney injury ?N17.9 - Acute kidney failure, unspecified (ICD-10) Uncontrolled diabetes mellitus Acute on chronic clinical systolic heart failure ?I50.23 - Acute on chronic systolic (congestive) heart failure (ICD-10) Acute renal failure ?N17.9 - Acute kidney failure, unspecified (ICD-10) Hyperkalemia ?E87.5 - Hyperkalemia (ICD-10) Acute dehydration ?E86.0 - Dehydration (ICD-10) CKD stage 3a, GFR 45-59 ml/min ?N18.31 - Chronic kidney disease, stage 3a (ICD-10) Diabetes mellitus with hyperglycemia, with long-term current use of insulin ?E11.65 - Type 2 diabetes mellitus with hyperglycemia (ICD-10) ?Z79.4 - assisted (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 insulin (ICD-10) Paroxysmal atrial fibrillation ?I48.0 - Paroxysmal atrial fibrillation (ICD-10) Hypothyroidism (acquired) ?E03.9 - Hypothyroidism, unspecified (ICD-10) Hypertension ?I10 - Essential (primary) hypertension (ICD-10) Hypokalemia ?E87.6 - Hypokalemia (ICD-10) CHF (congestive heart failure) ?I50.9 - Heart failure, unspecified (ICD-10) Lymph edema ?I89.0 - Lymphedema, not elsewhere classified (ICD-10) Cataracts, bilateral ?H26.9 - Unspecified cataract (ICD-10) Breast cancer ?C50.919 - Malignant neoplasm of unspecified site of unspecified female br east (ICD-10) Obesity ?E66.9 - Obesity, unspecified (ICD-10) Surgical History History of cholecystectomy ?Z90.49 - Acquired absence of other specified parts of digestive tract (ICD- 10) History of appendectomy ?Z90.49 - Acquired absence of other specified parts of digestive tract (ICD- 10) History of hysterectomy ?Z90.710 - Acquired absence of both cervix and uterus (ICD-10) H/O lumbosacral spine surgery ?Z98.890 - Other specified postprocedural states (ICD-10) H/O bilateral mastectomy ?Z90.13 - Acquired absence of bilateral breasts and nipples (ICD-10) Family History Other Family history of CHF (congestive heart failure) Family history of cancer Family history of diabetes mellitus Family history of hypertension H/O mastectomy Social History Within the past year, how often did you have a drink containing alcohol: never Within the past year, how often did you have six or more drinks on one occasion: never Score interpretation: A score less than 3 is consistent with normal alcohol consumption. 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 Highest level of school completed/degree received: some college, no degree Do you want help with school or training: No Are you now , , , , never or living with a partner: In a typical week, how many times do you talk on the telephone with family, friends, or neighbors: twice per week How often do you get together with friends or relatives: twice per week How often do you attend islam or latter day services: never Do you belong to any clubs or organizations such as islam groups unions, fraternal or athletic groups, or school groups: no Total score: 2 Score interpretation: A score of greater than or equal to 2 indicates the lowest level of social isolation. Little interest or pleasure in doing things: not at all Feeling down, depressed, or hopeless: not at all Feel stressed/tense/nervous/anxious/difficulty sleeping: not at all Due to disability, difficulty making decisions: No Do you think of yourself as: straight/heterosexual Gender Identity: female Exam Narrative Exam Narrative: Constituational: Awake/ alert, no apparent distress, well hydrated HENMT: + Hematoma R forehead/eyebrow, otherwise normocephalic, internal/external ears normal, moist oral mucous membranes and oropharynx normal Eyes: PERRL/EOMI and conjunctivae normal Neck: ROM intact, tender, otherwise normal to inspection Chest: inspection of chest normal Respiratory: Normal respiratory effort, clear to auscultation bilaterally Cardio: regular rate and regular rhythm GI: soft to palpation and non-tender Back: nontender MSK: + Edema L UE, otherwise normal inspection of extremities, ROM intact, +NVI Skin: no rashes or petechiae Neuro: no focal deficits Psych: mental status grossly normal Constitutional Vital Signs, click to edit/add: Last Vital Signs Temp 98.2 F 05/12/25 16:14 Pulse 64 05/12/25 16:14 Resp 18 05/12/25 16:14 BP 178/81 H 05/12/25 16:14 Pulse Ox 97 05/12/25 16:14 O2 Del Method Room Air 05/12/25 16:14 Course Vital Signs Vital signs: Vital Signs Temperature 98.2 F 05/12/25 16:14 Pulse Rate 64 05/12/25 16:14 Respiratory Rate 18 05/12/25 16:14 Blood Pressure 178/81 H 05/12/25 16:14 Pulse Oximetry 97 05/12/25 16:14 Oxygen Delivery Method Room Air 05/12/25 16:14 Temperature 98.2 F 05/12/25 16:14 Pulse Rate 64 05/12/25 16:14 Respiratory Rate 18 05/12/25 16:14 Blood Pressure 178/81 H 05/12/25 16:14 Pulse Oximetry 97 05/12/25 16:14 Oxygen Delivery Method Room Air 05/12/25 16:14 Medical Decision Making [facility] Narrative Medical decision making narrative: The patient is a well-appearing 79-year-old female who who presented to the emergency department today for evaluation concerns for mechanical fall with head injury while historically on Xarelto for A-fib. Initial examination patient with clinical evidence consistent with closed head injury as evidenced by large hematoma to the left forehead extending through the left eyebrow. Otherwise no concerning neurologic or strokelike findings on exam. No injuries noted to extremities and no concerning neurovascular or motor findings on exam. CT imaging of head and cervical spine without critical findings. Discussed this with the patient including recommendations for supportive care. Advised on follow-up with patient's primary care provider for reevaluation. Discussed signs and symptoms of any worsening condition and when to consider reevaluation with the emergency department. Patient verbalized an understanding of this and is agreeable with the plan to be discharged home. Medical Records Medical records reviewed: Yes I reviewed the patient's medical records Imaging Data CT scan - head: Attestation: I have reviewed the pertinent imaging results. Radiologist's impression: ITS Impressions Cervical Spine CT 05/12/25 16:30 IMPRESSION: No acute intracranial findings. Large left frontal scalp hematoma CT Cervical Spine withoutcontrast TECHNIQUE: Axial imaging with 2-D and 3-D reconstruction. The CT exam was performed using one or more the following dose reduction techniques: Automated exposure control, adjustment of the MA and/or Kv according to patient size, or use of the iterative reconstruction technique. COMPARISON: MR cervical spine 03/13/2024 HISTORY: As above POST SURGERY CHANGES: None BONY ALIGNMENT: Straightening Mild multilevel anterolisthesis. Similar findings. BONY SPINAL CANAL: Patent central bony canal FRACTURE: None BONY LESIONS: None SOFT TISSUES: Unremarkable DEGENERATIVE CHANGES: Extensive C5-6 spondylosis. Facet degeneration. Similar findings. LUNG APICES: Small pleural effusions. ADDITIONAL FINDINGS: IMPRESSION: No acute displaced fracture. Similar degeneration. Small layering pleural effusions. Impression dictated by: Jarred Randolph M.D. 05/12/2025 5:02 PM Dictation Location: [employer] Electronically authenticated by: [id number] Y Date: 05/12/2025 17:[address] 05/12/25 16:30 IMPRESSION: No acute intracranial findings. Large left frontal scalp hematoma CT Cervical Spine withoutcontrast TECHNIQUE: Axial imaging with 2-D and 3-D reconstruction. The CT exam was performed using one or more the following dose reduction techniques: Automated exposure control, adjustment of the MA and/or Kv according to patient size, or use of the iterative reconstruction technique. COMPARISON: MR cervical spine 03/13/2024 HISTORY: As above POST SURGERY CHANGES: None BONY ALIGNMENT: Straightening Mild multilevel anterolisthesis. Similar findings. BONY SPINAL CANAL: Patent central bony canal FRACTURE: None BONY LESIONS: None SOFT TISSUES: Unremarkable DEGENERATIVE CHANGES: Extensive C5-6 spondylosis. Facet degeneration. Similar findings. LUNG APICES: Small pleural effusions. ADDITIONAL FINDINGS: IMPRESSION: No acute displaced fracture. Similar degeneration. Small layering pleural effusions. Impression dictated by: Jarerd Randolph M.D. 05/12/2025 5:02 PM Dictation Location: [employer] Electronically authenticated by: [id number] Y Date: 05/12/2025 17:02 CT cervical spine: Attestation: I have reviewed the pertinent imaging results. Radiologist's impression: ITS Impressions Cervical Spine CT 05/12/25 16:30 IMPRESSION: No acute intracranial findings. Large left frontal scalp hematoma CT Cervical Spine withoutcontrast TECHNIQUE: Axial imaging with 2-D and 3-D reconstruction. The CT exam was performed using one or more the following dose reduction techniques: Automated exposure control, adjustment of the MA and/or Kv according to patient size, or use of the iterative reconstruction technique. COMPARISON: MR cervical spine 03/13/2024 HISTORY: As above POST SURGERY CHANGES: None BONY ALIGNMENT: Straightening Mild multilevel anterolisthesis. Similar findings. BONY SPINAL CANAL: Patent central bony canal FRACTURE: None BONY LESIONS: None SOFT TISSUES: Unremarkable DEGENERATIVE CHANGES: Extensive C5-6 spondylosis. Facet degeneration. Similar findings. LUNG APICES: Small pleural effusions. ADDITIONAL FINDINGS: IMPRESSION: No acute displaced fracture. Similar degeneration. Small layering pleural effusions. Impression dictated by: Jarred Randolph M.D. 05/12/2025 5:02 PM Dictation Location: [employer] Electronically authenticated by: [id number] Y Date: 05/12/2025 17:[address] 05/12/25 16:30 IMPRESSION: No acute intracranial findings. Large left frontal scalp hematoma CT Cervical Spine withoutcontrast TECHNIQUE: Axial imaging with 2-D and 3-D reconstruction. The CT exam was performed using one or more the following dose reduction techniques: Automated exposure control, adjustment of the MA and/or Kv according to patient size, or use of the iterative reconstruction technique. COMPARISON: MR cervical spine 03/13/2024 HISTORY: As above POST SURGERY CHANGES: None BONY ALIGNMENT: Straightening Mild multilevel anterolisthesis. Similar findings. BONY SPINAL CANAL: Patent central bony canal FRACTURE: None BONY LESIONS: None SOFT TISSUES: Unremarkable DEGENERATIVE CHANGES: Extensive C5-6 spondylosis. Facet degeneration. Similar findings. LUNG APICES: Small pleural effusions. ADDITIONAL FINDINGS: IMPRESSION: No acute displaced fracture. Similar degeneration. Small layering pleural effusions. Impression dictated by: Jarred Randolph M.D. 05/12/2025 5:02 PM Dictation Location: [place] [address] Electronically authenticated by: [id number] Y Date: 05/12/2025 17:02 Discharge Plan Discharge Chief Complaint: Fall Clinical Impression: Contusion of head, Chronic anticoagulation Patient Disposition: Home, Self-Care Prescriptions / Home Meds: No Action insulin glargine [Lantus Solostar U-100 Insulin] 100 unit/mL (3 mL) insulin pen 20 unit SUBCUT BEDTIME levothyroxine 125 mcg tablet 125 mcg PO .acb alprazolam 0.25 mg tablet 0.25 mg PO TID PRN (Reason: anxiety) Patient Comments: 0.25mg PO TID PRN for anxiety oxycodone-acetaminophen 5-325 mg tablet 1 tab PO DAILY PRN (Reason: pain) diltiazem HCl 120 mg capsule,extended release 24hr 120 mg PO .QD buspirone 5 mg tablet 5 mg PO BID duloxetine 20 mg capsule,delayed release(DR/EC) 20 mg PO DAILY ketoconazole 2 % shampoo 1 applic TOPICAL .2 TIMES WEEK propranolol 40 mg tablet 40 mg PO BID sucralfate 1 gram tablet 1 g PO AC nystatin [Nystop] 100,000 unit/gram Powder 1 applic topical BID 30 Days Qty: 60 0RF diphenoxylate-atropine [Lomotil] 2.5-0.025 mg Tablet 1 tab PO Q6H PRN (Reason: Diarrhea) 7 Days Qty: 28 0RF magnesium oxide 400 mg (241.3 mg magnesium) Tablet 400 mg PO TID 7 Days Qty: 21 0RF potassium chloride 10 mEq Tablet,Er Particles/Crystals 20 meq PO BID 7 Days Qty: 28 0RF Xarelto 20 mg tablet 20 mg PO DAILY Rx Instructions: must administer with evening meal PreserVision Lutein 226-90-0.8-5 mg capsule 1 cap PO BID atorvastatin 20 mg tablet 20 mg PO QPM cholecalciferol (vitamin D3) [Vitamin D3] 125 mcg (5,000 unit) tablet 125 mcg PO DAILY biotin 10,000 mcg tablet,disintegrating 10,000 mcg PO DAILY Novolin N FlexPen 100 unit/mL (3 mL) insulin pen 1 unit SUBCUT ACHS Patient Comments: (if BLOOD SUGAR is BETWEEN 150-199 INJECT 3 (THREE) UNITS, if BETWEEN 200-249 INJECT FOUR UNITS, if BETWEEN 250-299 INJECT 7 (SEVEN) UNITS, if BETWEEN 300-349 INJECT TEN UNITS, if BETWEEN 350-399 INJECT 12 UNITS, if 400 or great INJECT 14 UNITS) Rx Instructions: SLIDING SCALE famotidine 20 mg tablet 20 mg PO .qhs omeprazole 40 mg capsule,delayed release(DR/EC) 40 mg PO .acb Print Language: Turkish Instructions: Facial Contusion (ED), Blood Thinners (ED) Additional Instructions: Rest, ice any sore areas. May take Tylenol as needed for any pain. Follow-up with your primary care provider for reevaluation as discussed. Referrals: Theodora Cuevas MD [Primary Care Provider, Family Practice] - 1 week
--- NOTE | 2025-05-12 16:30 | CT_ITS ---
The [address] [address] Patient Name: JOE CALL MRN: [id number] date: 1945 Sex: F Assigned Patient Location: ER Current Patient Location: ER Accession/Order Number: [id number] Exam Date: 05/12/2025 16:39 Report Date: 05/12/2025 17:02 At the request of: KISHAN VAZQUEZ NP Procedure: CT cervical spine wo con Unenhanced head CT TECHNIQUE: Contiguous axial imaging of the head. The CT exam was performed using one or more the following dose reduction techniques: Automated exposure control, adjustment of the MA and/or Kv according to patient size, or use of the iterative reconstruction technique. COMPARISON: 05/04/2024 HISTORY: Fell. Patient on blood thinners. VENTRICLES: Within normal limits ATROPHY: Diffuse atrophy BRAIN PARENCHYMA: Decreased density of the white matter is most consistent with chronic small vessel disease. HEMORRHAGE: None HERNIATION: No mass effect or herniation INFARCTION: No recent vascular distribution infarction is seen. EXTRA-AXIAL FLUID COLLECTIONS None MIDBRAIN: Unremarkable CASSANDRA: Unremarkable MEDULLA: Unremarkable SINUSES: Unremarkable ORBITS: Grossly unremarkable MASTOIDS: Unremarkable BONY STRUCTURES Intact ADDITIONAL FINDINGS: Large left frontal scalp hematoma CT/CT cervical spine wo con IMPRESSION: No acute intracranial findings. Large left frontal scalp hematoma CT Cervical Spine withoutcontrast TECHNIQUE: Axial imaging with 2-D and 3-D reconstruction. The CT exam was performed using one or more the following dose reduction techniques: Automated exposure control, adjustment of the MA and/or Kv according to patient size, or use of the iterative reconstruction technique. COMPARISON: MR cervical spine 03/13/2024 HISTORY: As above POST SURGERY CHANGES: None BONY ALIGNMENT: Straightening Mild multilevel anterolisthesis. Similar findings. BONY SPINAL CANAL: Patent central bony canal FRACTURE: None BONY LESIONS: None SOFT TISSUES: Unremarkable DEGENERATIVE CHANGES: Extensive C5-6 spondylosis. Facet degeneration. Similar findings. LUNG APICES: Small pleural effusions. ADDITIONAL FINDINGS: IMPRESSION: No acute displaced fracture. Similar degeneration. Small layering pleural effusions. Impression dictated by: Jarred Randolph M.D. 05/12/2025 5:02 PM [facility]ict[facility] Electron[facility] authenticated by: [id number] Y Date: 05/12/2025 17:02
--- NOTE | 2025-05-12 16:30 | CT_ITS ---
The [address] [address] Patient Name: JOE CALL MRN: [id number] date: 1945 Sex: F Assigned Patient Location: ER Current Patient Location: ER Accession/Order Number: [id number] Exam Date: 05/12/2025 16:39 Report Date: 05/12/2025 17:02 At the request of: KISHAN VAZQUEZ NP Procedure: CT cervical spine wo con Unenhanced head CT TECHNIQUE: Contiguous axial imaging of the head. The CT exam was performed using one or more the following dose reduction techniques: Automated exposure control, adjustment of the MA and/or Kv according to patient size, or use of the iterative reconstruction technique. COMPARISON: 05/04/2024 HISTORY: Fell. Patient on blood thinners. VENTRICLES: Within normal limits ATROPHY: Diffuse atrophy BRAIN PARENCHYMA: Decreased density of the white matter is most consistent with chronic small vessel disease. HEMORRHAGE: None HERNIATION: No mass effect or herniation INFARCTION: No recent vascular distribution infarction is seen. EXTRA-AXIAL FLUID COLLECTIONS None MIDBRAIN: Unremarkable CASSANDRA: Unremarkable MEDULLA: Unremarkable SINUSES: Unremarkable ORBITS: Grossly unremarkable MASTOIDS: Unremarkable BONY STRUCTURES Intact ADDITIONAL FINDINGS: Large left frontal scalp hematoma CT/CT head/brain wo con IMPRESSION: No acute intracranial findings. Large left frontal scalp hematoma CT Cervical Spine withoutcontrast TECHNIQUE: Axial imaging with 2-D and 3-D reconstruction. The CT exam was performed using one or more the following dose reduction techniques: Automated exposure control, adjustment of the MA and/or Kv according to patient size, or use of the iterative reconstruction technique. COMPARISON: MR cervical spine 03/13/2024 HISTORY: As above POST SURGERY CHANGES: None BONY ALIGNMENT: Straightening Mild multilevel anterolisthesis. Similar findings. BONY SPINAL CANAL: Patent central bony canal FRACTURE: None BONY LESIONS: None SOFT TISSUES: Unremarkable DEGENERATIVE CHANGES: Extensive C5-6 spondylosis. Facet degeneration. Similar findings. LUNG APICES: Small pleural effusions. ADDITIONAL FINDINGS: IMPRESSION: No acute displaced fracture. Similar degeneration. Small layering pleural effusions. Impression dictated by: Jarred Randolph M.D. 05/12/2025 5:02 PM Dictation Location: [facility] Electronically authenticated by: [id number] Y Date: 05/12/2025 17:02
== END 2025-05-12 18:12 | disposition home or self-care (01) ==
PROVIDERS: Emergency Provider Student in an Organized Health Care Education/Training Program; PCP Family Medicine
DX: S00.93XA Contusion of unspecified part of head, initial encounter (principal); W01.190A Fall on same level from slipping, tripping and stumbling with subsequent striking against furniture, initial encounter; Z79.01 Long term (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 anticoagulants; I48.91 Unspecified atrial fibrillation; Z90.49 Acquired absence of other specified parts of digestive tract; Z90.710 Acquired absence of both cervix and uterus; Z90.13 Acquired absence of bilateral breasts and nipples; M47.812 Spondylosis without myelopathy or radiculopathy, cervical region
CPT/HCPCS: 70450; 72125; 99284

== ENCOUNTER 2025-05-28 04:24 | Inpatient (IN) | payer MEDICARE, SELFPAY ==
--- OUTSIDE RECORDS SUMMARY | 2012-02-02 09:30 | XMS_ITS | Continuity of Care Document ---
Author Organization [employer] [facility] Address [address] [place] [address] Phone Care Team Providers Care Catalytic Converter Operator Helper Name Role Phone Frandy Addison MD Unavailable Unavailable Procedures Procedure Date OFFICE/OUTPATIENT VISIT, [facility] Advance Directives Directive Yes / No Effective Date File Name No Information Encounters Encounter Description Practice Location Reason(s) For Visit Diagnoses Date Provider Providers Copied on Encounter OFFICE/OUTPATI ENT VISIT, [facility] [employer] [facility], [address], [place], [place], [id number], [place] tel:[phone] [facility] No Information Cyn Wise. [address], [id number], [place]. tel:[phone] Referring Provider: Frandy Bowman, [address] [facility] [address], [place], [address]. tel:[phone] Family History Family Member Type Diagnosis Age At Onset No Information Payers Payer name Insurance type Covered alliance party ID Authoriza tion(s) [facility] CI [id number] Social History Type Description Quantity Date Captured [...]
--- OUTSIDE RECORDS SUMMARY | 2012-02-02 09:30 | XMS_ITS | Continuity of Care Document ---
Author Organization [employer] [facility] Address [address] [place] [address] Phone Care Team Providers Care Avionics Test Technician Name Role Phone Frandy Addison MD Unavailable Unavailable Procedures Procedure Date OFFICE/OUTPATIENT VISIT, [facility] Advance Directives Directive Yes / No Effective Date File Name No Information Encounters Encounter Description Practice Location Reason(s) For Visit Diagnoses Date Provider Providers Copied on Encounter OFFICE/OUTPATI ENT VISIT, [facility] [employer] [facility], [address], [place], [place], [id number], [place] tel:[phone] [facility] No Information Cyn Wise. [address], [id number], [place]. tel:[phone] Referring Provider: Frandy Bowman, [address] [facility] [address], [place], [address]. tel:[phone] Family History Family Member Type Diagnosis Age At Onset No Information Payers Payer name Insurance type Covered libertarian ID Authoriza tion(s) [facility] CI [id number] Social History Type Description Quantity Date Captured [...]
--- OUTSIDE RECORDS SUMMARY | 2012-02-02 09:30 | XMS_ITS | Continuity of Care Document ---
Author Organization [employer] [facility] Address [address] [place] [address] Phone Care Team Providers Care Dietary Worker Name Role Phone Frandy Addison MD Unavailable Unavailable Procedures Procedure Date OFFICE/OUTPATIENT VISIT, [facility] Advance Directives Directive Yes / No Effective Date File Name No Information Encounters Encounter Description Practice Location Reason(s) For Visit Diagnoses Date Provider Providers Copied on Encounter OFFICE/OUTPATI ENT VISIT, [facility] [employer] [facility], [address], [place], [place], [id number], [place] tel:[phone] [facility] No Information Cyn Wise. [address], [id number], [place]. tel:[phone] Referring Provider: Frandy Bowman, [address] [facility] [address], [place], [address]. tel:[phone] Family History Family Member Type Diagnosis Age At Onset No Information Payers Payer name Insurance type Covered green party ID Authoriza tion(s) [facility] CI [id number] Social History Type Description Quantity Date Captured [...]
--- OUTSIDE RECORDS SUMMARY | 2012-05-09 08:45 | XMS_ITS | Continuity of Care Document ---
Author Organization [facility] Address [address] [place] [address] Phone Care Team Providers Care Video System Repairer Name Role Phone Cliff Lance LITTLE Unavailable Unavailable Advance Directives Directive Yes / No Effective Date File Name No Information Encounters Encounter Description Practice Location Reason(s) For Visit Diagnoses Date Provider Providers Copied on Encounter [facility] , [address] [place] [address], [id number], tel:[phone] MASSIEL Corley No Information Cliff Lucas. [address] [place] [address], [id number], [place]. tel:[phone] Referring Provider: Lacne Coronado, [address] [place] [address], [address]. tel:[phone] Family History Family Member Type Diagnosis Age At Onset No Information Payers Payer name Insurance type Covered democrat ID Authoriza tion(s) No Information Social History Type Description Quantity Date Captured [...]
--- OUTSIDE RECORDS SUMMARY | 2012-05-09 08:45 | XMS_ITS | Continuity of Care Document ---
Author Organization [facility] Address [address] [place] [address] Phone Care Team Providers Care Piano And Organ Refinisher Name Role Phone Cliff Lance LITTLE Unavailable Unavailable Advance Directives Directive Yes / No Effective Date File Name No Information Encounters Encounter Description Practice Location Reason(s) For Visit Diagnoses Date Provider Providers Copied on Encounter [facility] , [address] [place] [address], [id number], tel:[phone] MASSI[facility] Corley No Information Cliff Lucas. [address] [place] [address], [id number], [place]. tel:[phone] Referring Provider: Lance Coronado, [address] [place] [address], [address]. tel:[phone] Family History Family Member Type Diagnosis Age [...]
--- OUTSIDE RECORDS SUMMARY | 2012-05-09 08:45 | XMS_ITS | Continuity of Care Document ---
Author Organization [facility] Address [address] [address] Phone Care Team Providers Care Shochet Name Role Phone Cliff Lance LITTLE Unavailable Unavailable Advance Directives Directive Yes / No Effective Date File Name No Information Encounters Encounter Description Practice Location Reason(s) For Visit Diagnoses Date Provider Providers Copied on Encounter [facility] , [address] [place] [address], [id number], tel:[phone] MASSIEL Corley No Information Cliff Lucas. [address] [place] [address], [id number], [place]. tel:[phone] Referring Provider: Lance Coronado, [address] [place] [address], [address]. tel:[phone] Family History Family Member Type Diagnosis Age At Onset No Information Payers Payer name Insurance type Covered libertarian ID Authoriza tion(s) No Information Social History [...]
--- OUTSIDE RECORDS SUMMARY | 2024-04-24 09:05 | XMS_ITS | Continuity of Care Document ---
Author Organization [facility] Address [address] [place] [address] Phone Care Team Providers Care Hot Man Name Role Phone John Anders MD, May [...] times every day 2 MG - Active famotidine 20 mg tablet take 1 tablet by oral route every day 20 MG - Active furosemide 40 mg tablet take 1 tablet by oral route every day 40 MG - Active metoprolol tartrate 100 mg tablet take 1.5 tablet by oral route 2 times every day with meals - Active oxycodone 10 mg tablet take 1 tablet by oral route every 4 - 6 hours as needed - Active Lantus U-100 Insulin 100 unit/mL subcutaneous solution inject by subcutaneous route as per insulin protocol as needed 0.00 - Active Novolog Flexpen U-100 Insulin aspart 100 unit/mL (3 mL) subcutaneous inject by subcutaneous route per prescriber's instructions. Insulin dosing requires individualization. as needed 0.00 - Active Xarelto 20 mg tablet take 1 tablet by oral route every day with the evening meal 20 MG - Active biotin 5 mg [...] route every day 112 MCG - Active lisinopril 20 mg tablet take 1 tablet by oral route every day 20 MG - Active diltiazem ER (XR/XT) 120 mg capsule,extended release 24 hr, controlled take 1 capsule by oral route every day 120 MG - Active Procedures Procedure Date Intravitreal Injection [...] I And R Bilatera l OFFICE/OUTPATIENT VISIT, [facility] Advance Directives Directive Yes / No Effective Date File Name No Information Encounters Encounter Description Practice Location Reason(s) For Visit Diagnoses Date Provider Providers Copied on Encounter [facility], [address], [place], [address], [place] tel: [phone] CONTRERAS Browning NPDR (chief complaint) 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 [address], [address], [place], [place], [address] , [place]. tel:[phone] Referring Provider: March John Alyseaida, [address], [place], [address] . 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 [address], [address], [place], [place], [address] , [place]. tel:[phone] Other Provider: Mady Lozano, [address] [place], [address]. tel:[phone] erring Provider: March John Anders, [address] [facility], [place], [address] . 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 [address], [address] [facility], [place], [place], [address] , [place]. tel:[phone] Referring Provider: March John Anders, [address] [facility], [place], [address] . 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 [address], [address] [facility], [place], [place], [id number] , [place]. tel:[phone] Referring Provider: Renan Huang, [facility] [address] [place], [address]. tel:[phone] [facility], [address] [place], [address], [place] tel:[phone] CONTRERAS Contreras No Information 4 El Rashedy March. [address], [address] [facility], [place], [place], [address] , [place]. 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 [address], [address] [facility], [place], [place], [address] , [place]. tel:[phone] Referring Provider: Sanya Ross, [address] [facility], [place], [address] . tel:[phone] [facility], [address] [place], [address], [place] [phone] RVA [place] Follow Up of NPDR (chief complaint) 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, bilateralVitreous hemorrhage, right eyeHypertensive retinopathy of both eyesPseudophakiaHyper tension 3 Alkaliby Ahmed. [address], [address] [facility], [place], [place], [id number] , [place]. [phone] Referring Provider: Sanya Ross, [address] [facility], [place], [address] . 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 [address], [address] [facility], [place], [place], [address] , [place]. tel:[phone] Referring Provider: Sanya Ross, [address] [facility], [place], [address] . 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 [address], [place], [place], [address] , [place]. [phone] Referring Provider: Sanya Newman M, [address], [place], [address] . tel:[phone] [facility], [address] [place], [address], [place] tel:[phone] RVA Nam NPDR w/ME (chief complaint) 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, bilateralVitreous hemorrhage, right eye Mar- 3 Alkaliby Ahmed. [address], [place], [place], [address] , [place]. tel:[phone] Referring Provider: Renan Huang, [facility] [address] [place], [address]. tel:[phone] OFFICE/OUTPA TIENT VISIT, EST, Moderate [facility], [address] [place], [address], [place] [phone] RVA [place] Macular edema (chief complaint) 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, bilateralPseudophakia HypertensionVitreous hemorrhage, right eyeHypertensive retinopathy of both eyesNexdtve age-related mclr degn, bilateral, early dry stage Feb-0 3 Alkaliby Ahmed. [address], [place], [place], [address] , [place]. [phone] Other Provider: Mady Lozano, [address] [place], [address]. tel:[phone] erring Provider: Renan Huang, [facility] [address] [place], [address]. tel:[phone] OFFICE/OUTPA TIENT VISIT, NEW [facility], [address] [place], [address], [place] tel:[phone] CONTRERAS Browning possible AMD (chief complaint) distorted vision (chief complaint) Nexdtve age-related mclr degn, bilateral, early dry stageRetinal hemorrhage, bilateralCombined forms of age-related cataract of both eyesEssential (primary) hypertension 1 Aidan Willard. [address], [place], [place], [address] , [place]. tel:[phone] Specialist : Renan Huang, [facility] [address] [place], [address]. tel:[phone] erring Provider: Renan Huang, [facility] [address] [place], [address]. tel:[phone] [facility] Physician s, [address] [place], [address], [place] tel:[phone] CONTRREAS Browning No Information 1 Aidan Willard. [address], [address], [place], [place], [address] , [place]. tel:[phone] Family History Family Member Type Diagnosis Age At Onset Father Problem degenerative disorder of mac georgette Father Problem glaucoma Father Problem hypertension Payers Payer name Insurance type Covered republican ID Authoriza tion(s) [employer] Medicare [id number] Social History Type Description Quantity Date Captured [...] bilateral) ordered Referral Referred To: Jarad Campbell [facility] [place], [address] Ordered: Referrals: Jarad Campbell. 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
--- OUTSIDE RECORDS SUMMARY | 2024-06-27 05:10 | XMS_ITS ---
Author Organization [facility] Address [address] [place] [address] Care Team Providers Care Injection Operator Name Role Phone Theodora Cuevas M.D. Primary Care Provider Unavail able Eloina Mullins Unavailable [phone] REASON FOR VISIT C4-7 ACDF Encounters Encounter Location Date Provider Diagnosis [facility] [facility] [address] [place] [address] [place] [address] 06/27/2024 Eloina Mullins Plan Of Treatment No Information Progress Notes * JOE CALL GDOB:1945 (79 yo F)Acc No.[id number]:06/27/2024 Patient: JOE JACK Provider: Mariama Le MD, PhD :1945 A ge:78 Y S ex:Female Date:06/27/2024 Address:[address] [place], [id number] Pcp:Theodora Cuevas M.D. Subjective: * Chief Complaints: * 1 . C4-7 ACDF. * Medical History: Objective: * Vitals: Assessment: Plan: * Treatment: Forms: * Images: * Electronic signature of Dale Mullins MD, PHD on 05/28/2025 at 04:34 AM EDT Sign off status: Pending * Provider: Mariama Le MD, PhD Date: 0 06/27/2024 Generated for Printi ng/Faxing/eTransmitting on: 0 05/28/2025 04:34 AM EDT
--- OUTSIDE RECORDS SUMMARY | 2024-07-02 03:00 | XMS_ITS ---
Author Organization [facility] Address [address] [place] [address] Care Team Providers Care Regulatory Affairs Strategy Specialist Name Role Phone Theodora Cuevas M.D. Primary Care Provider Unavail able Eloina Mullins Unavailable [phone] REASON FOR VISIT C4-7 ACDF Encounters Encounter Location Date Provider Diagnosis [facility] [address] [place] [address] 07/02/2024 Eloina Mullins Plan Of Treatment No Information Progress Notes * JOE CALL GDOB:1945 (79 yo F)Acc No.[id number]:07/02/2024 Patient: Dulce GAVIN JOE G Provider: Mariama Le MD, PhD :1945 A ge:78 Y S ex:Female Date:07/02/2024 Address:[address] [place], [id number] Pcp:Theodora Cuevas M.D. * Images: * Electronic signature of Makennav bonnie Mullins MD, PHD on 05/28/2025 at 04:34 AM EDT Sign off status: Pending * Provider: Mariama Le MD, PhD Date: 07/02/2024 Generated for Printi ng/Faxing/eTransmitting on: 05/28/2025 04:34 AM EDT
--- OUTSIDE RECORDS SUMMARY | 2024-07-15 16:21 | XMS_ITS ---
Author Organization The [facility] in [place] Address [address] [place] [address] Care Team Providers Care Electric Motorman Name Role Phone Theodora Cuevas Primary Care Provider Harman Boucher [phone] REASON FOR VISIT NOT A [facility] PATIENT Encounters Encounter Location Date Provider Diagnosis [facility] Medicine [address] [place] [address] 07/15/2024 Harman Morales Plan Of Treatment No Information Progress Notes * Kati LUEVANO GDOB:1945 (79 yo F)Acc No.[id number]:07/15/2024 Patient: Kati JACK :1945 A ge:79 Y S ex:Female Address:[address] [place], [address] * true * Date: Generated for Joannei santy/Fathig/eTransmitting on: 0 05/28/2025 04:34 AM EDT
--- OUTSIDE RECORDS SUMMARY | 2024-08-15 07:40 | XMS_ITS ---
Author Organization [facility] Address [address] [place] [address] Care Team Providers Care Vendor Analyst Name Role Phone Theodora Cuevas M.D. Primary Care Provider Unavail able Eloina Mullins Unavailable [phone] REASON FOR VISIT C4-7 ACDF Encounters Encounter Location Date Provider Diagnosis [facility] [address] [place] [address] [place] [address] 08/15/2024 Eloina Mullins Plan Of Treatment No Information Progress Notes * JOE CALL GDOB:1945 (79 yo F)Acc No.[id number]:08/15/2024 Progress Notes Patient: JOE JACK Provider: Mariama Le MD, PhD :1945 A ge:79 Y S ex:Female Date:08/15/2024 Address:[address] [place], [id number] Pcp:Theodora Cuevas M.D. Subjective: * Chief Complaints: * 1 . C4-7 ACDF. * Medical History: Objective: * Vitals: Assessment: Plan: * Treatment: Forms: * Images: * Electronic signature of Dale Mullins MD, PHD on 05/28/2025 at 04:34 AM EDT Sign off status: Pending * Provider: Mariama Le MD, PhD Date: 1 Generated for Bennie madera/Costa/eTransmitting on: 0 05/28/2025 04:34 AM EDT
--- OUTSIDE RECORDS SUMMARY | 2025-05-21 07:38 | XMS_ITS | Continuity of Care Document ---
Author Organization [facility] Address [address] [place] [id number] Phone Care Team Providers Care Retail Business Development Manager Name Role Phone Theodora Cuevas MD Primary Care Provider Elma Rapp Attending Provider [phone] Cheng Aviles APRN Attending Provider Jorge Calix DO Emergency Provider Unavailable Wandy Alvarez CMA Attending Provider Unavaila Theodora Daniels MD Attending Provider Care Teams Patient Care Team Team Status: Active Member Role Status Dates Theodora Cuevas MD Primary Care Provider Active Visit Care Team Team Status: Active Member Role Status Dates Theodora Cuevas MD Primary Care Provider Active Start: March 02, 2025 Cherie Rapp MD Attending Provider Active Start : March 02, 2025 Visit Care Team Team Status: Inactive Member Role Status Dates Theodora Cuevas MD Primary Care Provider Active Start: March 10, 2025 End: March 10, 2025 Cheng Aviles APRN Attending Provider Active Start: March 10, 2025 End: March 10, 2025 Visit Care Team Team Status: Inactive Member Role Status Dates Theodora Cuevas MD Primary Care Provider Active Start: March 12, 2025 End: March 12, 2025 Jorge Calix DO Emergency Provider Active Sta rt: March 12, 2025 End: March 12, 2025 Visit Care Team Team Status: Active Member Role Status Dates Theodora Cuevas MD Primary Care Provider Active Start: March 13, 2025 Wandy Alvarez CMA Attending Provider Active Start: March 13, 2025 Visit Care Team Team Status: Inactive Member Role Status Dates Theodora Cuevas MD Primary Care Provider Active Start: March 24, 2025 End: March 24, 2025 Theodora Cuevas MD Attending Provider Active St art: March 24, 2025 End: March 24, 2025 Visit Care Team Team Status: Inactive Member Role Status Dates Theodora Cuevas MD Primary Care Provider Active Start: April 16, 2025 End: April 16, 2025 Theodora Cuevas MD Attending Provider Active St art: April 16, 2025 End: April 16, 2025 Visit Care Team Team Status: Inactive Member Role Status Dates Theodora Cuevas MD Primary Care Provider Active Start: April 21, 2025 End: April 21, 2025 Cheng Aviles APRN Attending Provider Active Start: April 21, 2025 End: April 21, 2025 Visit Care Team Team Status: Active Member Role Status Dates Theodora Cuevas MD Primary Care Provider Active Start: May 11, 2025 Cheng Aviles APRN Attending Provider Active Start: May 11, 2025 Patient Care Team Team Status: Active Member Role Status Dates Theodora Cuevas MD Primary Care Provider Active Start: May 13, 2025 Wandy Alvarez CMA Attending Provider Active Start: May 13, 2025 Patient Care Team Team Status: Inactive Member Role Status Dates Theodora Cuevas MD Primary Care Provider Active Start: May 21, 2025 End: May 21, 2025 Theodora Cuevas MD Attending Provider Active St art: May 21, 2025 End: May 21, 2025 Chief Complaint and Reason for Visit Chief Complaint Admit Date follow up egd March 10, 2025 11: 03am abnormal labs March 12, 2025 1:23pm Amb Documentation March 13, 2025 9:28am Concerns March 24, 2025 1:51p m HIGH RISK, rash April 16, 2025 10:19 am 6 week follow up April 21, 2025 2:10 pm Amb Documentation May 13, 2025 9:25a m TBH; fall; discuss eczema May 21 10:52am Reason for Visit Admit Date Diarrhea March 10, 2025 11: 03am Dyspepsia March 10, 2025 11: 03am GERD (gastroesophageal reflux disease) A pril 2024 11:03am IBS (irritable bowel syndrome) February 11:03am Diarrhea March 24, 2025 1:51p m Longstanding persistent atrial fibrillat ion March 24, 2025 1:51pm Type 2 diabetes mellitus wit h hyperglycemia, with long-term current use of March 24, 2025 1:51pm UTI (urinary tract infection) March 24, 2025 1:51pm A-fib April 16, 2025 10:19 am Class 3 severe obesity with body mass index (BMI) of 40.0 to 44.9 in adult April 16, 2025 10:19am Contact dermatitis April 16, 2025 10:19 am Type 2 diabetes mellitus wit h hyperglycemia, with long-term current use of April 16, 2025 10:19am GERD (gastroesophageal reflux disease) J une 2024 2:10pm IBS (irritable bowel syndrome) April 2:10pm Allergies, Adverse Reactions, Alerts Allergen Type Severity Reaction Last Updated Verified Status Iodinated Contrast Media Allergy Unknown Rash May 21, 2025 11:08am Yes Active shellfish derived Allergy Unknown Rash May [id number] 11:08am Yes Active Sulfa (Sulfonamide Antibiotics) Allergy Unknown Rash May 21, 2025 11:08am Yes Active sulfacetamide Allergy Unknown diarrhea May 21, 2025 11:08am Yes Active Social History Smoking Status Status Start Date End Date Date of Observa tion Never smoked tobacco (finding) March 12, 2025 3:11pm Observation Status Observation Response Date of Response Legal Sex Female (finding) Sex Assigned At Female 1945 Family History Relationship Condition Age at Onset Recorded Date/T deborah father Unknown Heart disease Unknown family member Family history of other condition Unknow n mother Heart disease Unknown Unknown sister Alzheimer's dementia Unknown Problems Active Problems Medical Problem Onset Date Status Yeast cystitis Unknown Active UTI (urinary tract infection) Unknown Ac tive Seborrhea capitis in adult Unknown Activ e Class 3 severe obesity with body mass index (BMI) of 40.0 to 44.9 in adult Unknown Active C. 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 Unknown Active Benign essential tremor Unknown Active Chalazion of right eye Unknown Active Immunization due Unknown Active Hordeolum externum (stye) Unknown Active Secondary hyperparathyroidism Unknown Ac tive Urinary incontinence Unknown Active Diabetes mellitus Unknown Active CKD (chronic kidney disease), stage IV Unknown Active CKD (chronic kidney disease) stage 3, GFR 30-59 ml/min Unknown Active Coronary artery disease Unknown Active Anxiety Unknown Active A-fib Unknown Active Bradycardia Unknown Active Hypertensive chronic kidney disease with stage 1 through stage 4 chronic kidney disease, or unspecified chronic kidney disease Unknown Active Mass of right axilla Unknown Active Diarrhea Unknown Active Dyspepsia Unknown Active Dyspnea Unknown Active Dysuria Unknown Active Hyperglycemia Unknown Active Hyperlipidemia Unknown Active Hypothyroidism Unknown Active Lactose intolerance Unknown Active Lymph edema Unknown Active Diabetes mellitus with hyperglycemia Unknown Active Osteoarthritis Unknown Active Near syncope Unknown Active Lumbar degenerative disc disease Unknown Active Tremor Unknown Active Bloated abdomen Unknown Active Longstanding persistent atrial fibrillation Unkn own Active Type 2 diabetes mellitus wit h hyperglycemia, with long-term current use of insulin Unknown Active Obstructive uropathy Unknown Active Memory changes Unknown Active Thrush of mouth and esophagus Unknown Ac tive Stress incontinence of urine Unknown Act chiqui Cervical disc disease Unknown Active GERD (gastroesophageal reflux disease) Unknown Active Acute on chronic diastolic CHF (congestive heart failure) Unknown Active Hypertension Unknown Active Macular degeneration Unknown Active Pharyngitis Unknown Active IBS (irritable bowel syndrome) Unknown A ctive Lumbar spondylosis Unknown Active Abdominal swelling, generalized Unknown Active Contact dermatitis Unknown Active Hypokalemia Unknown Active Hypomagnesemia Unknown Active Inactive/Resolved Problems Medical Problem Onset Date Status Elevated blood pressure reading Unknown Resolved Dizziness Unknown Resolved Delirium Unknown Resolved Dysuria Unknown Resolved Acute kidney injury superimposed on CKD Unknown Resolved AV junctional bradycardia Unknown Resolv ed Acute UTI Unknown Resolved Acute hyperkalemia Unknown Resolved Medications Medication Status Dose Units Route Directions Qty Days St art Date Stop Date End Date Instructions Adherence Alprazolam 0.25 mg tablet Discont inued 0.25 MG PO Twice daily as needed for anxiety January 30, 2024 12:55p m March 25, 2024 3:46p m Metronidazo le 500 mg tablet Discont inued 0 .ROUTE .COMPLEX January 30, 2024 12:55p m March 25, 2024 3:47p m TAKE 1 TABLET BY MOUTH THREE TIMES DAILY FOR 10 DAYS Metoprolol Tartrate 100 mg tablet Discont inued 0 .ROUTE .COMPLEX February 19, 2024 2:51pm May 27, 2024 3:55p m TAKE 1 AND 1/2 TABLETS TWICE DAILY Oxycodone-A cetaminophe n 5-325 mg tablet Discont inued 1 TAB PO Twice daily as needed for pain 60 March 03, 2024 May 07, 2024 1:23p m Insulin Glargine (Lantus U-100 Insulin) 100 unit/mL solution Discont inued 35 UNIT SUBCUT Every evening March 13, 2024 5:10pm March 25, 2024 4:20p m Blood Sugar Diagnostic (True Metrix Glucose Test Strip) strip Discont inued 0 .ROUTE .COMPLEX March 31, 2024 3:04pm Decem 2023 3:29p m TEST BLOOD SUGAR EVERY DAY Levothyroxi ne 125 mcg tablet Discont inued 0 .ROUTE .COMPLEX April 03, 2024 3:16pm June 07, 2024 7:29a m TAKE 1 TABLET BY MOUTH DAILY Metronidazo le 500 mg tablet Discont inued 500 MG PO Twice daily April 10, 2024 12:00a m June 05, 2024 12:06 pm Metoprolol Tartrate 100 mg tablet Discont inued 0 .ROUTE .COMPLEX May 27, 2024 3:55pm June 07, 2024 7:29a m TAKE 1 AND 1/2 TABLETS TWICE DAILY Oxycodone-A cetaminophe n 5-325 mg tablet Discont inued 1 TAB PO Daily as needed for pain June 05, 2024 June 07, 2024 7:29a m Alprazolam 0.25 mg tablet Discont inued 0.25 MG PO Twice daily as needed for anxiety June 07, 2024 7:27am Augus t 2023 12:55 pm Levothyroxi ne 125 mcg tablet Discont inued 0 .ROUTE .COMPLEX June 07, 2024 7:28am Augus t 2023 12:55 pm TAKE 1 TABLET BY MOUTH DAILY Metoprolol Tartrate 100 mg tablet Discont inued 0 .ROUTE .COMPLEX June 07, 2024 7:28am Octob er 2023 8:28a m TAKE 1 AND 1/2 TABLETS TWICE DAILY Oxycodone-A cetaminophe n 5-325 mg tablet Discont inued 1 TAB PO Daily as needed for pain June 07, 2024 June 07, 2024 7:30a m Insulin Glargine (Basaglar Kwikpen U-100 Insulin) 100 unit/mL (3 mL) insulin pen Discont inued 20 UNIT SUBCUT Every evening June 13, 2024 11:12a m Febru chele 2024 11:58 am Rivaroxaban (Xarelto) 20 mg tablet Discont inued 20 MG PO Daily June 30, 2024 9:49am February 09, 2025 2:13p m Flash Glucose Sensor (Freestyle Familia 2 Sensor) kit Discont inued 0 .ROUTE .COMPLEX 1 2023 11:19a m Octob er 2023 4:55p m USE DIRECTED to test BLOOD SUGAR DAILY *change EVERY 14 days * Ciprofloxac in Hcl 250 mg tablet Discont inued 250 MG PO Daily 2023 12:00a m Decem vanessa 2023 3:27p m Metoprolol Tartrate 100 mg tablet Discont inued 0 .ROUTE .COMPLEX 270 Octobe r 2023 8:28am Decem vanessa 2023 2:15p m TAKE 1 AND 1/2 TABLETS TWICE DAILY Flash Glucose Sensor (Freestyle Familia 2 Sensor) kit Discont inued 0 .ROUTE .COMPLEX 1 Octobe r 2023 4:55pm Decem vanessa 2023 4:09p m USE DIRECTED to test BLOOD SUGAR DAILY *change EVERY 14 days * Flash Glucose Scanning [place] (Freestyle Familia 2 [place]) misc Active 0 .Route 1 Octobe r 2023 8:12am As directed Oxycodone-A cetaminophe n 5-325 mg tablet Discont inued 1 TAB PO Daily as needed for pain 30 Octobe r 2023 Decem vanessa 2023 9:49a m Metronidazo le 500 mg tablet Discont inued 0 .ROUTE .COMPLEX 30 Novemb er 2023 10:28a m Decem vanessa 2023 3:28p m TAKE 1 TABLET BY MOUTH THREE TIMES DAILY FOR 10 DAYS Levothyroxi ne 125 mcg tablet Discont inued 0 .ROUTE .COMPLEX 90 Novemb er 2023 2:13pm Decem vanessa 2023 12:39 pm TAKE 1 TABLET BY MOUTH DAILY Oxycodone-A cetaminophe n 5-325 mg tablet Discont inued 1 TAB PO Daily as needed for pain 30 Decemb er 2023 4:39p m Flash Glucose Sensor (Freestyle Familia 2 Sensor) kit Discont inued 0 .ROUTE .COMPLEX 1 Decemb er 2023 4:09pm Febru chele 2024 2:15p m USE DIRECTED to test BLOOD SUGAR DAILY *change EVERY 14 days * Oxycodone-A cetaminophe n 5-325 mg tablet Discont inued 1 TAB PO Daily as needed for pain 30 Novuar y 2024u chele 2024 11:57 am Oxycodone-A cetaminophe n 5-325 mg tablet Discont inued 1 TAB PO Daily as needed for pain 30 2024February 09, 2025 2:13p m Flash Glucose Sensor (Freestyle Familia 2 Sensor) kit Discont inued 0 .ROUTE .COMPLEX 1 2024 2:15pm February 18, 2025 8:30a m USE DIRECTED to test BLOOD SUGAR DAILY *change EVERY 14 days * Insulin Glargine (Basaglar Kwikpen U-100 Insulin) 100 unit/mL (3 mL) insulin pen Discont inued 15 UNIT SUBCUT Every evening 2024 11:58a m February 19, 2025 9:09a m Omeprazole 40 mg capsule,del ayed release(DR/ EC) Discont inued 0 .ROUTE .COMPLEX 30 2024 3:13pm April 21, 2025 2:19p m TAKE 1 CAPSULE BY MOUTH DAILY Buspirone 5 mg tablet Discont inued 0 .ROUTE .COMPLEX 60 2024 3:13pm February 09, 2025 8:15a m TAKE 1 TABLET BY MOUTH TWICE DAILY Duloxetine 20 mg capsule,del ayed release(DR/ EC) Discont inued 0 .ROUTE .COMPLEX 30 2024 3:13pm February 09, 2025 2:57p m TAKE 1 CAPSULE BY MOUTH DAILY Famotidine 20 mg tablet Discont inued 0 .ROUTE .COMPLEX 30 2025 3:13pm February 09, 2025 2:57p m TAKE 1 TABLET BY MOUTH AT BEDTIME Buspirone 5 mg tablet Discont inued 0 .ROUTE .COMPLEX February 09, 2025 8:14am March 05, 2025 9:39a m TAKE 1 TABLET BY MOUTH TWICE DAILY Levothyroxi ne 112 mcg capsule Discont inued 112 MCG PO Daily February 09, 2025 8:14am February 09, 2025 2:09p m Levothyroxi ne 125 mcg tablet Discont inued 0 .ROUTE .COMPLEX February 10, 2025 8:29am March 05, 2025 9:39a m TAKE 1 TABLET BY MOUTH DAILY Flash Glucose Sensor (Freestyle Familia 2 Sensor) kit Discont inued 0 .ROUTE .COMPLEX February 18, 2025 8:30am April 20, 2025 9:51a m USE DIRECTED to test BLOOD SUGAR DAILY *change EVERY 14 days * Insulin Nph Isoph U-100 Human (Novolin N Flexpen) 100 unit/mL (3 mL) insulin pen Active 0 .ROUTE .COMPLEX March 02, 2025 8:26am INJECT SUBCUTANEOUSL Y THREE TIMES DAILY according to sliding scale (if BLOOD SUGAR is BETWEEN 150-199 INJECT 3 (THREE) UNITS, if BETWEEN 200-249 INJECT FOUR UNITS, if BETWEEN 250-299 INJECT 7 (SEVEN) UNITS, if BETWEEN 300-349 INJECT TEN UNITS, if BETWEEN 350-399 INJECT 12 UNITS, if 400 or great INJECT 14 UNITS) Complies with drug therapy Buspirone 5 mg tablet Active 0 .ROUTE .COMPLEX March 05, 2025 9:38am TAKE 1 TABLET BY MOUTH TWICE DAILY Complies with drug therapy Propranolol 40 mg tablet Active 0 .ROUTE .COMPLEX March 05, 2025 9:38am TAKE 1 TABLET BY MOUTH TWICE DAILY Complies with drug therapy Famotidine 20 mg tablet Discont inued 0 .ROUTE .COMPLEX March 05, 2025 9:38am May 21, 2025 11:25 am TAKE 1 TABLET BY MOUTH AT BEDTIME Levothyroxi ne 125 mcg tablet Active 0 .ROUTE .COMPLEX March 05, 2025 9:38am TAKE 1 TABLET BY MOUTH DAILY Complies with drug therapy Flash Glucose Sensor (Freestyle Familia 2 Sensor) kit Active 0 .ROUTE .COMPLEX 1 April 20, 2025 9:51am USE DIRECTED to test BLOOD SUGAR DAILY *change EVERY 14 days * Venlafaxine 37.5 mg capsule,ext ended release 24hr Discont inued 37.5 MG PO Daily June 11, 2021 12:00a m January 17, 2024 5:18p m Atorvastati n 20 mg tablet Active 20 MG PO Daily June 11, 2021 12:00a m Complies with drug therapy Lisinopril 20 mg tablet Discont inued 20 MG PO Daily June 11, 2021 12:00a m May 07, 2024 12:01 pm Ketorolac 0.5 % drops Discont inued DROPS June 11, 2021 12:00a m Augus 2020 3:16a m Levothyroxi ne 112 mcg tablet Discont inued 112 MCG PO Daily June 11, 2021 12:00a m April 03, 2024 12:05 pm Lipase-Prot ease-Amylas e (Creon) 24,000-76,0 00 -120,000 unit capsule,del ayed release(DR/ EC) Discont inued 1 - 2 CAP PO 1-2 TIMES DAILY June 11, 2021 12:00a m Augus 2020 3:12a m Oxycodone-A cetaminophe n 5-325 mg tablet Discont inued 1 TAB PO Twice daily as needed for Pain June 12, 2021 12:00a m Augus 2020 3:13a m Insulin Asp Prt-Insulin Aspart (Novolog Mix 70-30flexpe n U-100) 100 unit/mL (70-30) Insulin Pen Discont inued 20 UNIT SUBCUT With breakfast and supper June 12, 2021 12:00a m Augus 2020 12:52 pm Rivaroxaban (Xarelto) 20 mg Tablet Discont inued 20 MG PO Daily June 12, 2021 12:00a m Augus t 2023 9:49a m Carvedilol 6.25 mg Tablet Discont inued 6.25 MG PO Twice daily with meals June 12, 2021 12:00a m January 17, 2024 5:18p m Insulin Aspart U-100 (Novolog Flexpen U-100 Insulin) 100 unit/mL (3 mL) Insulin Pen Discont inued 1 UNIT SUBCUT Three times daily June 12, 2021 12:00a m January 15, 2024 3:28p m 150-199 mg/dl 3 unit 200-249 mg/dl 4 unit 250-299 mg/dl 7 unit 300-349 mg/dl 10 unit 350-399 mg/dl 12 unit greater than or = 400 mg/dl 14 unit Insulin Glargine (Lantus U-100 Insulin) 100 unit/mL solution Discont inued 40 UNIT SUBCUT Every evening 10 June 12, 2021 12:00a m January 17, 2024 5:19p m Cefdinir 300 mg capsule Discont inued 300 MG PO Twice daily 10 June 12, 2021 12:00a m January 17, 2024 5:18p m Fluconazole 100 mg tablet Discont inued 100 MG PO Daily 7 June 12, 2021 12:00a m January 17, 2024 5:18p m Metoprolol Tartrate 100 mg tablet Discont inued 100 MG PO Daily June 19, 2021 12:00a m January 17, 2024 5:18p m Diltiazem Hcl 120 mg capsule,ext ended release 24hr Discont inued 120 MG PO Daily June 19, 2021 12:00a m February 09, 2025 2:12p m Diclofenac Sodium 1 % Gel Discont inued 4 GM TOPICA L Four times daily as needed for neck muscle pain 0 Decemb er 2023 1:00am Decem vanessa 2023 12:41 pm Furosemide 40 mg Tablet Discont inued 40 MG PO Daily 30 30 Decemb er 2023 1:00am Decem vanessa 2023 3:11p m further refills or dose adjustment per Nephrology. Sodium Chloride (Nasal [place] (Sodium Chloride)) 0.65 % aerosol,spr ay Discont inued 1 SPRAY INTRAN BOSSMAN Twice daily as needed for nasal congestion 44 5 Decemb er 2023 1:00am Decem vanessa 2023 12:41 pm Albuterol Sulfate 90 mcg/actuati on HFA aerosol inhaler Discont inued 2 INH INHALA TION Q6H as needed for shortness of breath or wheezing 8 5 Decemb er 2023 1:00am Decem vanessa 2023 12:41 pm administer with spacer Cephalexin 500 mg capsule Discont inued 500 MG PO Twice daily 14 March 12, 2025 12:00a m March 24, 2025 2:26p m Cephalexin 500 mg capsule Discont inued 500 MG PO Twice daily 14 7 [facility] 2023 1:00am Decem vanessa 2023 12:41 pm Dapaglifloz in Propanediol (Farxiga) 10 mg tablet Discont inued 10 MG PO Daily January 22, 2024 12:00a m January 23, 2024 2:43p m Dapaglifloz in Propanediol (Farxiga) 10 mg tablet Discont inued 10 MG PO Daily January 23, 2024 2:42pm April 03, 2024 11:46 am Metronidazo le 500 mg tablet Discont inued 500 MG PO Three times daily 10 09January 29, 2024 12:00a m January 30, 2024 12:56 pm Insulin Nph Isoph U-100 Human (Novolin N Flexpen) 100 unit/mL (3 mL) insulin pen Discont inued 1 UNIT SUBCUT Three times daily January 24, 2024 12:00a m March 02, 2025 8:26a m 150-199 mg/dl 3 unit 200-249 mg/dl 4 unit 250-299 mg/dl 7 unit 300-349 mg/dl 10 unit 350-399 mg/dl 12 unit greater than or = 400 mg/dl 14 unit Dapaglifloz in Propanediol (xiga) 10 mg tablet Discont inued 10 MG PO Daily January 29, 2024 12:00a m April 03, 2024 11:42 am Metoprolol Tartrate 100 mg tablet Discont inued 100 MG PO Twice daily February 19, 2024 12:00a m February 19, 2024 2:51p m Blood Sugar Diagnostic (True Metrix Glucose Test Strip) strip Discont inued 0 .Route March 31, 2024 12:00a m March 31, 2024 3:04p m As directed Oxycodone-A cetaminophe n 5-325 mg tablet Discont inued 1 TAB PO Daily as needed for pain July 07, 2024 Bonita mb2023 10:19 am Nystatin-Tr iamcinolone 100,000-0.1 unit/g-% cream Discont inued 1 APPLIC TOPICA L Twice daily July 07, 2024 12:00a m Dece vanessa 2023 12:41 pm Levothyroxi ne 125 mcg tablet Discont inued 0 .ROUTE .COMPLEX 90 July 07, 2024 12:54p m Novem vanessa 2023 2:15p m TAKE 1 TABLET BY MOUTH DAILY Alprazolam 0.25 mg tablet Discont inued 0.25 MG PO Twice daily as needed for anxiety July 07, 2024 12:55p m Octob er 2023 8:14a m Oxycodone-A cetaminophe n 5-325 mg tablet Discont inued 1 TAB PO Daily as needed for pain May 07, 2024 June 05, 2024 11:41 am Flash Glucose Sensor (Freestyle Familia 2 Sensor) kit Discont inued 0 .Route May 07, 2024 12:00a m [facility] 2023 11:19 am As directed Biotin 10,000 mcg capsule Discont inued 00871 MCG PO daily June 05, 2024 12:00a m Dece vanessa 2023 12:41 pm Bifidobacte rium Infantis (Align (B.Infantis )) 4 mg capsule Discont inued 4 MG PO Daily June 05, 2024 12:00a m Dece vanessa 2023 12:41 pm Insulin Glargine (Basaglar Kwikpen U-100 Insulin) 100 unit/mL (3 mL) insulin pen Discont inued 20 UNIT SUBCUT Every evening June 05, 2024 12:00a m Augus t 2023 11:12 am Cholecalcif scar (Vitamin D3) 25 mcg (1,000 unit) capsule Discont inued 25 MCG PO Daily June 05, 2024 12:00a m February 19, 2025 9:04a m Alprazolam 0.25 mg tablet Discont inued 0.25 MG PO Twice daily as needed June 05, 2024 12:00a m June 07, 2024 7:30a m Spironolact one 50 mg tablet Discont inued 50 MG PO Daily June 05, 2024 12:00a m Septe mber 2023 10:38 am Flash Glucose Scanning [place] (Freestyle Familia 2 [place]) misc Discont inued 0 .Route 1 Septem vanessa 2023 12:00a m Octob er 2023 8:13a m As directed Omeprazole 40 mg capsule,del ayed release(DR/ EC) Discont inued 40 MG PO Daily 2024 1:00am Febru 2024 3:14p m Famotidine 20 mg tablet Discont inued 20 MG PO Daily at bedtime 2024 2:56pm Febru chele2024 3:14p m Duloxetine (Cymbalta) 20 mg capsule,del ayed release(DR/ EC) Discont inued 20 MG PO Daily 2024 1:00am Febru 2024 3:14p m Buspirone 5 mg tablet Discont inued 5 MG PO Twice daily 2024 1:00am Febru chele2024 3:14p m Magnesium Oxide 400 mg (241.3 mg magnesium) tablet Discont inued 400 MG PO Three times daily February 09, 2025 12:00a m March 12, 2025 3:58p m Diphenoxyla te-Atropine 2.5-0.025 mg tablet Discont inued 1 TAB PO Every 6 hours as needed February 09, 2025 12:00a m February 09, 2025 2:51p m Potassium Chloride 10 mEq tablet,ER particles/c rystals Discont inued 20 MEQ PO Twice daily February 09, 2025 12:00a m February 19, 2025 9:03a m Levothyroxi ne 125 mcg capsule Discont inued 125 MCG PO Daily February 09, 2025 12:00a m February 09, 2025 2:57p m Bumetanide 1 mg tablet Discont inued 1 MG PO Twice daily February 09, 2025 12:00a m February 09, 2025 2:52p m Diphenoxyla te-Atropine 2.5-0.025 mg tablet Discont inued 1 TAB PO Every 6 hours as needed for diarrhea 7 February 09, 2025 2:48pm March 24, 2025 2:27p m Duloxetine 20 mg capsule,del ayed release(/ EC) Discont inued 0 .ROUTE .COMPLEX February 09, 2025 2:56pm February 19, 2025 9:09a m TAKE 1 CAPSULE BY MOUTH DAILY Famotidine 20 mg tablet Discont inued 0 .ROUTE .COMPLEX February 09, 2025 2:56pm February 19, 2025 9:09a m TAKE 1 TABLET BY MOUTH AT BEDTIME Levothyroxi ne 125 mcg capsule Discont inued 125 MCG PO Daily 90 February 09, 2025 2:56pm February 10, 2025 8:29a m Propranolol 40 mg tablet Discont inued 40 MG PO Twice daily February 09, 2025 2:56pm March 05, 2025 9:39a m Insulin Glargine (Basaglar Kwikpen U-100 Insulin) 100 unit/mL (3 mL) insulin pen Active 30 UNIT SUBCUT Every evening April 16, 2025 10:45a m Complies with drug therapy Triamcinolo ne Acetonide 0.5 % cream Discont inued 1 APPLIC TOPICA L Twice daily as needed for itching April 16, 2025 12:00a m May 21, 2025 11:27 am Famotidine 20 mg tablet Active 0 .ROUTE .COMPLEX May 21, 2025 11:25a m TAKE 1 TABLET BY MOUTH AT BEDTIME Complies with drug therapy Triamcinolo ne Acetonide 0.5 % cream Active 1 APPLIC TOPICA L Twice daily as needed for itching May 21, 2025 11:27a m Complies with drug therapy Oxycodone-A cetaminophe n 5-325 mg tablet Discont inued 1 TAB PO Twice daily as needed 2023 1:00am Febru chele 2023 12:49 pm Oxycodone-A cetaminophe n 5-325 mg tablet Discont inued 1 TAB PO Twice daily as needed for pain 60 30 2023March 03, 2024 4:30p m Insulin Aspart U-100 (Novolog Flexpen U-100 Insulin) 100 unit/mL (3 mL) insulin pen Discont inued 1 UNIT SUBCUT Three times daily January 15, 2024 3:26pm January 16, 2024 3:13p m Insulin Aspart U-100 (Novolog Flexpen U-100 Insulin) 100 unit/mL (3 mL) insulin pen Discont inued 1 UNIT SUBCUT Three times daily January 16, 2024 3:12pm January 24, 2024 1:50p m 150-199 mg/dl 3 unit 200-249 mg/dl 4 unit 250-299 mg/dl 7 unit 300-349 mg/dl 10 unit 350-399 mg/dl 12 unit greater than or = 400 mg/dl 14 unit Albuterol Sulfate 90 mcg/actuati on HFA aerosol inhaler Discont inued 2 PUFF INHALA TION Every 4 hours as needed January 17, 2024 1:00am April 03, 2024 11:36 am Alprazolam 0.25 mg tablet Discont inued 0.25 MG PO Three times daily as needed January 17, 2024 1:00am January 30, 2024 12:56 pm Biotin 5 mg capsule Discont inued 5 MG PO Daily January 17, 2024 1:00am April 03, 2024 11:46 am Famotidine 20 mg tablet Discont inued 20 MG PO Daily at bedtime January 17, 2024 1:00am 2024 2:57p m [place] 3-Dha-Epa-F jairo Oil (Fish Oil) 1,000 mg (120 mg-180 mg) capsule Discont inued 1 CAP PO Daily January 17, 2024 1:00am April 03, 2024 11:49 am Garlic 100 mg tablet Discont inued 100 MG PO Daily January 17, 2024 1:00am April 03, 2024 11:47 am Insulin Glargine (Lantus U-100 Insulin) 100 unit/mL solution Discont inued 35 UNIT SUBCUT Every evening January 17, 2024 5:15pm March 13, 2024 5:11p m Furosemide (Lasix) 40 mg tablet Discont inued 40 MG PO Daily January 17, 2024 1:00am May 07, 2024 12:01 pm Nystatin 100,000 unit/gram cream Discont inued 1 APPLIC TOPICA L Twice daily January 17, 2024 1:00am June 05, 2024 12:08 pm Vitamins A,C,E-Zinc- Copper (Preservisi on Areds) 4,296 mcg-226 mg-90 mg capsule Active 1 CAP PO Twice daily January 17, 2024 1:00am Complies with drug therapy Selenomethi onine 200 mcg tablet Discont inued 200 MCG PO Daily January 17, 2024 1:00am April 03, 2024 11:51 am Spironolact one 25 mg tablet Discont inued 25 MG PO Daily January 17, 2024 1:00am May 07, 2024 12:01 pm Sucralfate 1 gram tablet Discont inued 1 GM PO Twice daily January 17, 2024 1:00am April 03, 2024 11:49 am Cholecalcif scar (Vitamin D3) 125 mcg (5,000 unit) capsule Discont inued 125 MCG PO Daily January 17, 2024 1:00am June 05, 2024 12:02 pm Nystatin 100,000 unit/gram cream Discont inued 1 APPLIC TOPICA L Twice daily as needed June 05, 2024 12:06p m [facility] 2023 10:36 am Ketoconazol e 2 % cream Discont inued 1 APPLIC TOPICA L Daily February 15, 2024 12:00a m April 29, 2024 1:36p m Oxybutynin Chloride 10 mg tablet extended release 24hr Discont inued 10 MG PO Daily February 15, 2024 12:00a m June 05, 2024 12:07 pm Insulin Glargine (Lantus Solostar U-100 Insulin) 100 unit/mL (3 mL) insulin pen Discont inued 20 UNIT SUBCUT Every morning March 25, 2024 12:00a m April 03, 2024 11:47 am Pen Needle, Diabetic (Comfort Ez Pen [place]) 33 gauge x 5/32 needle Active 0 .Route 100 March 25, 2024 12:00a m As directed Levothyroxi ne 125 mcg tablet Discont inued 125 MCG PO Daily April 03, 2024 12:00a m April 03, 2024 3:16p m Nystatin 100,000 unit/mL suspension Discont inued 1 ML PO Three times daily 60 April 29, 2024 12:00a m June 05, 2024 12:06 pm swish and swallow Furosemide (Lasix) 20 mg tablet Discont inued 20 MG PO Daily June 16, 2024 12:00a m Dece vanessa 2023 2:15p m Oxycodone-A cetaminophe n 5-325 mg tablet Discont inued 1 TAB PO Daily as needed for pain 30 30 Septem vanessa 2023 Octob er 2023 8:13a m Ketoconazol e 2 % cream Discont inued 1 APPLIC TOPICA L Twice daily 60 Septem vanessa 2023 12:00a m Dece vanessa 2023 12:41 pm Levothyroxi ne 112 mcg capsule Discont inued 112 MCG PO Daily [facility] er 2023 1:00am February 09, 2025 8:15a m Alprazolam 0.25 mg tablet Discont inued 0.25 MG PO Twice daily [facility] er 2023 1:00am [facility] vanessa 2023 11:38 am Furosemide 40 mg tablet Discont inued 40 MG PO Every 48 hours [facility] er 2023 3:11pm February 19, 2025 9:09a m further refills or dose adjustment per Nephrology. Nystatin 100,000 unit/gram powder Discont inued TOPICA L February 19, 2025 12:00a m March 12, 2025 3:58p m Alprazolam 0.25 mg tablet Active 0.25 MG PO Three times daily as needed for anxiety February 19, 2025 12:00a m Complies with drug therapy Biotin 10,000 mcg capsule Discont inued 65723 MCG PO February 19, 2025 12:00a m March 12, 2025 3:57p m Cholecalcif scar (Vitamin D3) 125 mcg (5,000 unit) capsule Active 125 MCG PO Daily February 19, 2025 12:00a m Complies with drug therapy Diltiazem Hcl 120 mg tablet extended release 24 hr Active 120 MG PO Daily February 19, 2025 12:00a m Complies with drug therapy Duloxetine 20 mg capsule,del ayed release(DR/ EC) Discont inued 20 MG PO Daily February 19, 2025 9:05am April 21, 2025 2:19p m Famotidine 20 mg tablet Discont inued 20 MG PO Daily at bedtime February 19, 2025 9:06am March 05, 2025 9:39a m Insulin Glargine (Basaglar Laureanoikpen U-100 Insulin) 100 unit/mL (3 mL) insulin pen Discont inued 20 UNIT SUBCUT Every evening February 19, 2025 9:06am April 16, 2025 10:46 am Oxycodone-A cetaminophe n 5-325 mg tablet Discont inued 1 TAB PO Daily as needed February 19, 2025 12:00a m February 19, 2025 9:19a m Sucralfate 1 gram tablet Discont inued 1 GM PO 3x/Day before meals February 19, 2025 12:00a m March 05, 2025 9:39a m Rivaroxaban (Xarelto) 20 mg tablet Active 20 MG PO Daily February 19, 2025 12:00a m must administer with evening meal Complies with drug therapy Furosemide (Lasix) 40 mg tablet Active 40 MG PO Daily February 19, 2025 12:00a m Complies with drug therapy Ketoconazol e 2 % shampoo Discont inued 1 APPLIC TOPICA L Twice a Week 120 2024 1:00am February 09, 2025 2:52p m Propranolol 40 mg tablet Discont inued 40 MG PO Twice daily 60 2024 1:00am February 09, 2025 2:57p m Metronidazo le 500 mg tablet Discont inued 0 .ROUTE .COMPLEX January 14, 2025 11:27a m February 09, 2025 2:08p m TAKE 1 TABLET BY MOUTH THREE TIMES DAILY FOR 10 DAYS Sucralfate (Carafate) 1 gram tablet Discont inued 1 GM PO 3x/Day before meals January 14, 2025 1:00am February 09, 2025 2:53p m Bumetanide 1 mg tablet Active 1 MG PO Twice daily April 21, 2025 12:00a m Complies with drug therapy Omeprazole 40 mg capsule,del ayed release(DR/ EC) Active 0 .ROUTE .COMPLEX as needed April 21, 2025 2:18pm TAKE 1 CAPSULE BY MOUTH DAILY PRN; Complies with drug therapy Diphenoxyla te-Atropine 2.5-0.025 mg tablet Active 1 TAB PO Every 6 hours as needed for diarrhea 08 06March 24, 2025 2:26pm Complies with drug therapy Nitrofurant oin Macrocrysta l 100 mg capsule Discont inued 100 MG PO Twice daily March 24, 2025 12:00a m April 21, 2025 2:19p m must administer with a meal/food Immunizations Immunization Event Date Not Given Reason Dose Number [id number] Sales 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 Lot Number Vaccine Information Statement (VIS) Detail Administration Location COVID-19 mRNA, Comirnaty (Pfizer) January 21, 2021 COVID-19 mRNA, Comirnaty (Pfizer) February 04, 2021 Fluzone TIV High-Dose [id number]+ October 17, 2024 Patient Refused [facility] influenza, unspecified formulation October 09, 2018 influenza, unspecified formulation September 04, 2023 Pneumococcal Conjugate Vaccine, 20 valent January 18, 2024 [id number] [facility] Procedures Procedure Date Performed Status XR chest 1V portable March 12, 2025 2:41pm comple gali Relevant Diagnostic Tests and/or Laboratory Data Laboratory Results Test Collection Date/Time Result Date/Time Result Interpretation Reference Range Result Comment Performing Site Urine Random Creatini ne March 02, 2025 6:00am March 02, 2025 6:00am 26.93 mg/dL 20.00-300. 00 Urine Other Casts March 02, 2025 6:00am NONE SEEN #/LPF NONE SEEN Parathyr oid Hormone (Intact) March 02, 2025 8:36am March 02, 2025 8:36am 57 pg/mL 15-65 Performed at: [facility] [id number] Director: Dimitri Landis PhD, Phone: [phone] 25-[place] xy Vitamin D Total March 02, 2025 8:36am March 02, 2025 8:36am 10.8 ng/mL <20 ng/mL Vit D [id number] -<30 ng/mL Vit D insufficien t30-100 ng/mL Vit D sufficient> 100 ng/mL Potential Toxicity Ferritin March 02, 2025 8:36am March 02, 2025 8:36am 114.0 ng/mL 8.0-252.0 Choleste rol/HDL Ratio March 02, 2025 8:36am March 02, 2025 8:36am 2.4 3.3 - 4.4 LOW RISK4.4 - 7.1 AVERAGE RISK7.1 - 11.0 MODERATE RISK>11.0 HIGH RISK B-Type Natriure tic Peptide March 02, 2025 8:36am March 02, 2025 8:36am 4236.0 pg/mL Above upper panic limits <=1800.0 RESULTS CALLED TO KENDALL ACUNA Hematocr it March 02, 2025 8:36am March 02, 2025 8:36am 38.7 % 36.0-48.0 Magnesiu m Level March 02, 2025 8:36am March 02, 2025 8:36am 1.0 mg/dL Below low normal 1.8-2.4 Anion Gap March 02, 2025 8:36am March 02, 2025 8:36am 13.4 Iron Saturati on March 02, 2025 8:36am March 02, 2025 8:36am 22.3 % Albumin March 02, 2025 8:36am March 02, 2025 8:36am 2.4 g/dL Below low normal 3.4-5.0 Phosphor us Level March 02, 2025 8:36am March 02, 2025 8:36am 4.9 mg/dL Above high normal 2.6-4.7 Uric Acid March 02, 2025 8:36am March 02, 2025 8:36am 8.1 mg/dL Above high normal 2.6-6.0 Anion Gap May 11, 2025 12:00pm May 11, 2025 12:00pm 13.5 Basophil s # (Auto) May 11, 2025 12:00pm May 11, 2025 12:00pm 0.1 10 3/uL 0.0-0.1 Urine Protein/ Creatini ne Ratio March 02, 2025 6:00am March 02, 2025 6:00am 6.91 Urine Other Crystals March 02, 2025 6:00am None Seen #/HPF None Seen Choleste rol Level March 02, 2025 8:36am March 02, 2025 8:36am 136 mg/dL <=200 Hemoglob in March 02, 2025 8:36am March 02, 2025 8:36am 12.9 g/dL 12.0-16.0 BUN/Crea tinine Ratio March 02, 2025 8:36am March 02, 2025 8:36am 29.0 Iron Level March 02, 2025 8:36am March 02, 2025 8:36am 62.0 ug/dL 50.0-170.0 BUN/Crea tinine Ratio May 11, 2025 12:00pm May 11, 2025 12:00pm 24.3 Basophil s (%) (Auto) May 11, 2025 12:00pm May 11, 2025 12:00pm 1.2 % 0.2-2.0 Urine Random Total Protein March 02, 2025 6:00am March 02, 2025 6:00am 186.2 mg/dL Above high normal <=11.9 Urine Bacteria March 02, 2025 6:00am SMALL #/HPF Abnormal (applies to non-numeric results) NONE SEEN HDL Choleste rol March 02, 2025 8:36am March 02, 2025 8:36am 56 mg/dL 40-60 > or =60 mg/dl - LOW CARDIOVASCU LAR RISK<40 mg/dl - HIGH CARDIOVASCU LAR RISK Mean Corpuscu lar Hemoglob in March 02, 2025 8:36am March 02, 2025 8:36am 29.4 pg 26.7-34.0 Blood Urea Nitrogen March 02, 2025 8:36am March 02, 2025 8:36am 53.0 mg/dL Above high normal 7.0-18.0 Total Iron Binding Capacity March 02, 2025 8:36am March 02, 2025 8:36am 278.0 ug/dL 250.0-450. 0 Blood Urea Nitrogen May 11, 2025 12:00pm May 11, 2025 12:00pm 34.0 mg/dL Above high normal 7.0-18.0 Eosinoph ils # (Auto) May 11, 2025 12:00pm May 11, 2025 12:00pm 0.2 10 3/uL 0.0-0.7 Urine Bilirubi n March 02, 2025 6:00am NEGATIVE NEGATIVE LDL Choleste quan Calculat ed March 02, 2025 8:36am March 02, 2025 8:36am 55.6 mg/dL <100 mg/dl [id number]- 129 mg/dl NEAR OR ABOVE [id number]- 159 mg/dl BORDERLINE [id number] mg/dl HIGH>190 mg/dl VERY HIGH Mean Corpuscu lar Hemoglob in Concent March 02, 2025 8:36am March 02, 2025 8:36am 33.3 g/dL 29.9-35.2 Calcium Level March 02, 2025 8:36am March 02, 2025 8:36am 8.1 mg/dL Below low normal 8.5-10.1 Calcium Level May 11, 2025 12:00pm May 11, 2025 12:00pm 8.6 mg/dL 8.5-10.1 Eosinoph ils (%) (Auto) May 11, 2025 12:00pm May 11, 2025 12:00pm 2.7 % 0.9-7.0 Urine Occult Blood March 02, 2025 6:00am TRACE-I NEGATIVE Triglyce rides Level March 02, 2025 8:36am March 02, 2025 8:36am 122 mg/dL <=150 Mean Corpuscu lar Volume March 02, 2025 8:36am March 02, 2025 8:36am 88.2 fL 81.0-99.0 Chloride Level March 02, 2025 8:36am March 02, 2025 8:36am 96 mmol/L Below low normal 98-107 Chloride Level May 11, 2025 12:00pm May 11, 2025 12:00pm 107 mmol/L 98-107 Hematocr it May 11, 2025 12:00pm May 11, 2025 12:00pm 34.2 % Below low normal 36.0-48.0 Urine Appearan ce March 02, 2025 6:00am CLEAR CLEAR VLDL Choleste rol March 02, 2025 8:36am March 02, 2025 8:36am 24.4 mg/dL Mean Platelet Volume March 02, 2025 8:36am March 02, 2025 8:36am 11.7 fL 9.5-13.5 Carbon Dioxide Level March 02, 2025 8:36am March 02, 2025 8:36am 31.2 mmol/L 21.0-32.0 Carbon Dioxide Level May 11, 2025 12:00pm May 11, 2025 12:00pm 27.7 mmol/L 21.0-32.0 Hemoglob in May 11, 2025 12:00pm May 11, 2025 12:00pm 10.9 g/dL Below low normal 12.0-16.0 Urine Color March 02, 2025 6:00am LT. YELLOW YELLOW Platelet Count March 02, 2025 8:36am March 02, 2025 8:36am 150 10 3/uL 150-450 Creatini ne March 02, 2025 8:36am March 02, 2025 8:36am 1.83 mg/dL Above high normal 0.55-1.02 Creatini ne May 11, 2025 12:00pm May 11, 2025 12:00pm 1.40 mg/dL Above high normal 0.55-1.02 Immature Granuloc yte # (Auto) May 11, 2025 12:00pm May 11, 2025 12:00pm 0.03 10 3/uL 0.00-0.03 Urine Glucose (UA) March 02, 2025 6:00am 250 mg/dL Abnormal (applies to non-numeric results) NEGATIVE Red Blood Count March 02, 2025 8:36am March 02, 2025 8:36am 4.39 10 6/uL 4.20-5.40 Estimate d GFR ( ) March 02, 2025 8:36am March 02, 2025 8:36am 32 Below low normal >=60 mL/min/1.7 3m 2 Estimate d GFR ( ) May 11, 2025 12:00pm May 11, 2025 12:00pm 44 Below low normal >=60 mL/min/1.7 3m 2 Immature Granuloc yte % (Auto) May 11, 2025 12:00pm May 11, 2025 12:00pm 0.4 % 0.0-0.5 Urine Ketones March 02, 2025 6:00am NEGATIVE mg/dL NEGATIVE Red Cell Distribu tion Width March 02, 2025 8:36am March 02, 2025 8:36am 13.4 % 11.0-15.0 Estimate d GFR (Non-Afr ican [place] March 02, 2025 8:36am March 02, 2025 8:36am 27 Below low normal >=60 mL/min/1.7 3m 2 Estimate d GFR (Non-Afr ican [place] May 11, 2025 12:00pm May 11, 2025 12:00pm 36 Below low normal >=60 mL/min/1.7 3m 2 Lymphocy edith # (Auto) May 11, 2025 12:00pm May 11, 2025 12:00pm 1.4 10 3/uL 1.2-3.8 Urine Leukocyt e Esterase March 02, 2025 6:00am NEGATIVE NEGATIVE Correcte d White Blood Count March 02, 2025 8:36am March 02, 2025 8:36am 8.7 10 3/uL 4.0-11.0 Glucose Level March 02, 2025 8:36am March 02, 2025 8:36am 337 mg/dL Above high normal 74-106 Glucose Level May 11, 2025 12:00pm May 11, 2025 12:00pm 93 mg/dL 74-106 Lymphocy edith (%) (Auto) May 11, 2025 12:00pm May 11, 2025 12:00pm 16.0 % Below low normal 20.5-60.0 Urine Mucus March 02, 2025 6:00am TRACE Abnormal (applies to non-numeric results) NONE SEEN [place] m Level March 02, 2025 8:36am March 02, 2025 8:36am 3.6 mmol/L 3.5-5.1 [place] m Level May 11, 2025 12:00pm May 11, 2025 12:00pm 4.2 mmol/L 3.5-5.1 Mean Corpuscu lar Hemoglob in May 11, 2025 12:00pm May 11, 2025 12:00pm 28.5 pg 26.7-34.0 Urine Nitrite March 02, 2025 6:00am NEGATIVE NEGATIVE Sodium Level March 02, 2025 8:36am March 02, 2025 8:36am 137 mmol/L 136-145 Sodium Level May 11, 2025 12:00pm May 11, 2025 12:00pm 144 mmol/L 136-145 Mean Corpuscu lar Hemoglob in Concent May 11, 2025 12:00pm May 11, 2025 12:00pm 31.9 g/dL 29.9-35.2 Urine pH March 02, 2025 6:00am 6.0 5.0-9.0 Mean Corpuscu lar Volume May 11, 2025 12:00pm May 11, 2025 12:00pm 89.5 fL 81.0-99.0 Urine Protein March 02, 2025 6:00am >=300 mg/dL Abnormal (applies to non-numeric results) NEG/TRACE Monocyte s # (Auto) May 11, 2025 12:00pm May 11, 2025 12:00pm 0.6 10 3/uL 0.3-0.8 Urine RBC March 02, 2025 6:00am 2-5 #/HPF Abnormal (applies to non-numeric results) 0-2 Monocyte s (%) (Auto) May 11, 2025 12:00pm May 11, 2025 12:00pm 7.5 % 1.7-12.0 Urine Specific [place] March 02, 2025 6:00am 1.020 1.005-1.02 5 Mean Platelet Volume May 11, 2025 12:00pm May 11, 2025 12:00pm 10.0 fL 9.5-13.5 Urine Squamous Epitheli al Cells March 02, 2025 6:00am FEW #/LPF Abnormal (applies to non-numeric results) NONE/RARE Neutroph ils # (Auto) May 11, 2025 12:00pm May 11, 2025 12:00pm 6.1 10 3/uL 1.4-6.5 Urine Urobilin ogen March 02, 2025 6:00am 0.2 EU/dL 0.2-1.0 Neutroph ils (%) (Auto) May 11, 2025 12:00pm May 11, 2025 12:00pm 72.2 % 43.0-75.0 Urine WBC March 02, 2025 6:00am NONE SEEN #/HPF NONE SEEN Platelet Count May 11, 2025 12:00pm May 11, 2025 12:00pm 279 10 3/uL 150-450 Urine Yeast March 02, 2025 6:00am SEEN Abnormal (applies to non-numeric results) NONE SEEN Red Blood Count May 11, 2025 12:00pm May 11, 2025 12:00pm 3.82 10 6/uL Below low normal 4.20-5.40 Red Cell Distribu tion Width May 11, 2025 12:00pm May 11, 2025 12:00pm 15.7 % Above high normal 11.0-15.0 Correcte d White Blood Count May 11, 2025 12:00pm May 11, 2025 12:00pm 8.5 10 3/uL 4.0-11.0 Correcte d White Blood Count March 12, 2025 3:30pm March 12, 2025 4:00pm 9.0 10*3/uL 3.8-11.6 [facility] [id number] [address] [facility] [address] Uncorrec gali WBC Count March 12, 2025 3:30pm March 12, 2025 4:00pm 9.0 10*3/uL 3.8-11.6 [facility] [id number] [address] [facility] [address] Red Blood Count March 12, 2025 3:30pm March 12, 2025 4:00pm 4.33 10*6/uL 3.60-5.00 [facility] [id number] [address] [facility] [address] Hemoglob in March 12, 2025 3:30pm March 12, 2025 4:00pm 12.8 g/dL 11.8-15.4 [facility] [id number] [address] [facility] [address] Hematocr it March 12, 2025 3:30pm March 12, 2025 4:00pm 38.3 % 34.0-46.4 [facility] [id number] [address] [facility] [address] Mean Corpuscu lar Volume March 12, 2025 3:30pm March 12, 2025 4:00pm 88.4 fL 80-100 [facility] [id number] [address] [facility] [address] Mean Corpuscu lar Hemoglob in March 12, 2025 3:30pm March 12, 2025 4:00pm 29.5 pg 24.7-34.3 [facility] [id number] [address] [facility] [address] Mean Corpuscu lar Hemoglob in Concent March 12, 2025 3:30pm March 12, 2025 4:00pm 33.3 g/dL 32.0-35.0 [facility] [id number] [address] [facility] [address] Red Cell Distribu tion Width March 12, 2025 3:30pm March 12, 2025 4:00pm 14.5 % 11.9-15.3 [facility] [id number] [address] [facility] [address] Platelet Count March 12, 2025 3:30pm March 12, 2025 4:00pm 194 10*3/uL 150-450 [facility] [id number] [address] [facility] [address] Mean Platelet Volume March 12, 2025 3:30pm March 12, 2025 4:00pm 9.6 fL 6.3-10.7 [facility] [id number] [address] [facility] [address] Monocyte Distribu tion Width March 12, 2025 3:30pm March 12, 2025 4:00pm 18.66 % 0.00-20.00 [facility] [id number] [address] [facility] [address] Neutroph ils (%) (Auto) March 12, 2025 3:30pm March 12, 2025 4:00pm 78.1 % . [facility] [id number] [address] [facility] [address] Lymphocy edith (%) (Auto) March 12, 2025 3:30pm March 12, 2025 4:00pm 14.2 % . [facility] [id number] [address] [facility] [address] Monocyte s (%) (Auto) March 12, 2025 3:30pm March 12, 2025 4:00pm 5.9 % . [facility] [id number] [address] [facility] [address] Eosinoph ils (%) (Auto) March 12, 2025 3:30pm March 12, 2025 4:00pm 1.0 % . [facility] [id number] [address] [facility] [address] Basophil s (%) (Auto) March 12, 2025 3:30pm March 12, 2025 4:00pm 0.8 % . [facility] [id number] [address] [facility] [address] Nucleate d RBC Relative Count (auto) March 12, 2025 3:30pm March 12, 2025 4:00pm 0.1 /100{WBC} 0-0.5 [facility] [id number] [address] [place], [place] [address] Neutroph ils # (Auto) March 12, 2025 3:30pm March 12, 2025 4:00pm 7.0 10*3/uL 1.8-7.7 [facility] [id number] [address] [place], [place] [address] Lymphocy edith # (Auto) March 12, 2025 3:30pm March 12, 2025 4:00pm 1.3 10*3/uL 1.00-4.8 [facility] [id number] [address] [place], [place] [address] Monocyte s # (Auto) March 12, 2025 3:30pm March 12, 2025 4:00pm 0.5 10*3/uL 0.0-0.8 [facility] [id number] [address] [place], [place] [address] Eosinoph ils # (Auto) March 12, 2025 3:30pm March 12, 2025 4:00pm 0.1 10*3/uL 0.0-0.45 [facility] [id number] [address] [place], [place] [address] Basophil s # (Auto) March 12, 2025 3:30pm March 12, 2025 4:00pm 0.1 10*3/uL 0.0-0.2 [facility] [id number] [address] [place], [place] [address] Prothrom bin Time March 12, 2025 3:30pm March 12, 2025 4:24pm 19.3 s Above high normal 9.0-12.9 A hematocrit value greater than 55% may lead to inaccurate results in coagulation testing. Patients having hematocrit values >55% require a special collection tube for coagulation studies. Please contact the laboratory at for redraw instruction s. [facility] [id number] [address] [place], [place] [address] Prothrom b Time Internat ional Ratio March 12, 2025 3:30pm March 12, 2025 4:24pm 1.7 INR Therapeutic Range A) Pre- and Peroperativ e OAT started two weeks before surgery. NOT HIP SURGERY: 1.5 - 2.5 HIP SURGERY: 2 - 3B) Primary and secondary prevention of venous THROMBOSIS: 2 - 3C) Active venous thrombosis, pulmonary embolismand prevention of recurrent venous thrombosis: 2 - 3D) Prevention of arterial thromboembo lismincludi ng patients with mechanical heart valves: 3 - 4.5 [facility] [id number] [address] [facility] [address] Urine Color March 12, 2025 5:26pm March 12, 2025 5:44pm Light-yel low Yellow [facility] [id number] [address] [facility] [address] Urine Appearan ce March 12, 2025 5:26pm March 12, 2025 5:44pm Clear Clear [facility] [id number] [address] [facility] [address] Urine Specific [place] March 12, 2025 5:26pm March 12, 2025 5:44pm 1.012 1.001-1.03 0 [facility] [id number] [address] [facility] [address] Urine pH March 12, 2025 5:26pm March 12, 2025 5:44pm 7.0 5.0-9.0 [facility] [id number] [address] [facility] [address] Urine Leukocyt e Esterase March 12, 2025 5:26pm March 12, 2025 5:44pm Negative Negative [facility] [id number] [address] [facility] [address] Urine Nitrite March 12, 2025 5:26pm March 12, 2025 5:44pm Negative Negative [facility] [id number] [address] [facility] [address] Urine Protein March 12, 2025 5:26pm March 12, 2025 5:44pm 200 mg/dL Above high normal Negative [facility] [id number] [address] [facility] [address] Urine Glucose (UA) March 12, 2025 5:26pm March 12, 2025 5:44pm >=1000 mg/dL Above high normal Normal [facility] [id number] [address] [facility] [address] Urine Ketones March 12, 2025 5:26pm March 12, 2025 5:44pm Negative Negative [facility] [id number] [address] [facility] [address] Urine Urobilin ogen March 12, 2025 5:26pm March 12, 2025 5:44pm Normal mg/dL Normal [facility] [id number] [address] [facility] [address] Urine Bilirubi n March 12, 2025 5:26pm March 12, 2025 5:44pm Negative Negative [facility] [id number] [address] [facility] [address] Urine Occult Blood March 12, 2025 5:26pm March 12, 2025 5:44pm Negative Negative [facility] [id number] [address] [facility] [address] Urine RBC March 12, 2025 5:26pm March 12, 2025 5:50pm 1-2 [HPF] 0-4 [facility] [id number] [address] [facility] [address] Urine WBC March 12, 2025 5:26pm March 12, 2025 5:50pm 3-4 [HPF] 0-4 [facility] [id number] [address] [facility] [address] Urine Squamous Epitheli al Cells March 12, 2025 5:26pm March 12, 2025 5:50pm 1-2 [HPF] 0-2 [facility] [id number] [address] [facility] [address] Urine Bacteria March 12, 2025 5:26pm March 12, 2025 5:50pm 2+ [HPF] Above high normal None Seen [facility] [id number] [address] [facility] [address] Urine Hyaline Casts March 12, 2025 5:26pm March 12, 2025 5:50pm 0-8 [LPF] 0-8 [facility] [id number] [address] [facility] [address] Glucose Level March 12, 2025 3:30pm March 12, 2025 4:26pm 520 mg/dL Above upper panic limits 70-100 Critical Result Called to and read back by: MIRELA WALSH at: 03/12/2025 16:29:08 by:[email or web address] recommended reference rangeRandom Glucose Reference Range is dependent on time and content of last meal. Glucose of more than 200 mg/dL in a nonstressed , ambulatory subject supports the diagnosis of Diabetes Mellitus. [facility] [id number] [address] [facility] [address] Blood Urea Nitrogen March 12, 2025 3:30pm March 12, 2025 4:26pm 41 mg/dL Above high normal 7-25 [facility] [id number] [address] [facility] [address] Creatini ne March 12, 2025 3:30pm March 12, 2025 4:26pm 1.66 mg/dL Above high normal 0.60-1.20 [facility] [id number] [address] [facility] [address] Estimate d GFR (CKD-EPI ) March 12, 2025 3:30pm March 12, 2025 4:26pm 31.389 mL/Min [facility] [id number] [address] [facility] [address] Sodium Level March 12, 2025 3:30pm March 12, 2025 4:26pm 134 mmol/L Below low normal 136-145 [facility] [id number] [address] [facility] [address] Potassiu m Level March 12, 2025 3:30pm March 12, 2025 4:26pm 4.0 mmol/L 3.5-5.1 [facility] [id number] [address] [facility] [address] Chloride Level March 12, 2025 3:30pm March 12, 2025 4:26pm 89 mmol/L Below low normal 98-107 [facility] [id number] [address] [facility] [address] Carbon Dioxide Level March 12, 2025 3:30pm March 12, 2025 4:26pm 37.0 mmol/L Above high normal 21.0-31.0 [facility] [id number] [address] [facility] [address] Anion Gap March 12, 2025 3:30pm March 12, 2025 4:26pm 12.0 mEq/L 6.0-15.0 [facility] [id number] [address] [facility] [address] Calcium Level March 12, 2025 3:30pm March 12, 2025 4:26pm 8.3 mg/dL Below low normal 8.6-10.3 [facility] [id number] [address] [facility] [address] Magnesiu m Level March 12, 2025 3:30pm March 12, 2025 4:26pm 1.1 mg/dL Below low normal 1.9-2.7 [facility] [id number] [address] [facility] [address] Total Protein March 12, 2025 3:30pm March 12, 2025 4:26pm 7.0 g/dL 6.4-8.9 [facility] [id number] [address] [facility] [address] Albumin March 12, 2025 3:30pm March 12, 2025 4:26pm 3.0 g/dL Below low normal 3.5-5.7 [facility] [id number] [address] [facility] [address] Globulin March 12, 2025 3:30pm March 12, 2025 4:26pm 4.0 g/dL [facility] [id number] [address] [place] [id number] Albumin/ Globulin Ratio March 12, 2025 3:30pm March 12, 2025 4:26pm 0.8 [facility] [id number] [address] [place] [id number] Total Bilirubi n March 12, 2025 3:30pm March 12, 2025 4:26pm 0.5 mg/dL 0.3-1.0 [facility] [id number] [address] [facility] [address] Direct Bilirubi n March 12, 2025 3:30pm March 12, 2025 4:26pm 0.10 mg/dL 0.03-0.18 [facility] [id number] [address] [place] [id number] Indirect Bilirubi n March 12, 2025 3:30pm March 12, 2025 4:26pm 0.4 mg/dL [facility] [id number] [address] [facility] [address] Aspartat e Amino Transf (AST/SGO T) March 12, 2025 3:30pm March 12, 2025 4:26pm 11 U/L Below low normal 13-39 [facility] [id number] [address] [place] [id number] Alanine Aminotra nsferase (ALT/SGP T) March 12, 2025 3:30pm March 12, 2025 4:26pm 9 U/L 7-52 [facility] [id number] [address] [place] [address] Alkaline Phosphat ase March 12, 2025 3:30pm March 12, 2025 4:26pm 104 U/L 34-104 [facility] [id number] [address] [place] [address] Total Creatine Kinase March 12, 2025 3:30pm March 12, 2025 4:19pm 57 U/L 30-223 [facility] [id number] [address] [place] [address] Troponin I High Sensitiv ity March 12, 2025 3:30pm March 12, 2025 4:25pm 46 ng/L Above high normal 0-15 The Troponin units of report have been changed to meet the Chest Pain Accreditati on requirement , element EC5.M1l2. Troponin units are changed from pg/ml to ng/L. Also, the decimal is removed and results are in whole numbers. [facility] [id number] [address] [place] [address] B-Type Natriure tic Peptide March 12, 2025 3:30pm March 12, 2025 4:24pm 773.0 pg/mL Above high normal 5-100 [facility] [id number] [address] [place] [address] Pharmacy Creatini ne Clearanc e (Chem March 12, 2025 3:30pm March 12, 2025 4:26pm 35.31 [facility] [id number] [address] [place] [address] Bedside Glucose March 12, 2025 6:22pm March 12, 2025 6:29pm 364 mg/dL Random Glucose Reference Range is dependent on time and content of last meal. Glucose of more than 200 mg/dL in a nonstressed , ambulatory subject supports the diagnosis of Diabetes Mellitus. Point of Care testing Diagnostic Imaging Reports Author Vargas Langston [facility] Authored March 12, 2025 3:32pm Report Dictated Date/Time Dictated By Status Radiology Report March 12, 2025 3:32pm Vandana Nicolas completed [facility] Main [place] [address] [place] [address] XRay Report Signed Patient: Kati Luevano MR#: [id number] : 1945 Acct:[id number] Age/Sex: 79 / F ADM Date: 5 Loc: ER Room: Type: [facility] ER Attending Dr: Copies to: Jorge Calix DO~ Ordering Provider: Joreg Calix DO Date of Service: 03/12/25 XR/XR chest 1V portable: Recheck/Abnormal Lab/Rx SINGLE VIEW CHEST CLINICAL HISTORY: Dizziness, low potassium COMPARISON: 10/25/2024 FINDINGS: Enlarged cardiomediastinal. Minor perihilar vascular prominence. Likely small left-sided effusion and airspace disease. XR/XR chest 1V portable IMPRESSION: LIKELY MILD CENTRAL VASCULAR CONGESTION. SUSPECT LEFT-SIDED EFFUSION AND AIRSPACE DISEASE LIKELY ATELECTASIS Impression dictated by: Vargas Langston M.D. 03/12/2025 3:34 PM Dictation Location: [place] [address] Transcribed By: [facility] 03/12/25 1534 Dictated By: Vargas Langston MD 03/12/25 1532 Signed By: <Electronically signed by Vargas Langston MD in OV> 03/12/25 1534 Vital Signs Vital Reading Result Reference Range Collection Date/Time Height 65 [in_i] March 10 11:05am Weight 112.10 kg March 10 11:05am BP Systolic 145 mm[Hg] 100-140 March 10 11:05am BP Diastolic 70 mm[Hg] 60-100 March 10 11:05am BMI (Body Mass Index) 41.1 kg/m2 March 10, 2025 11:05am Height 65 [in_i] March 12, 2025 1 :45pm Weight 114.70 kg March 12, 2025 1 :45pm Body Temperature 97.6 [degF] 97.6-99.0 March 12 1:44pm Heart Rate 57 /min 60-100 March 12, 2025 7 :10pm Respiratory rate 18 /min 12-March 12 7:10pm Oxygen saturation by Pulse oximetry 99 % 95-100 March 12, 2025 7:10pm BP Systolic 164 mm[Hg] 100-140 March 12, 2025 7 :10pm BP Diastolic 69 mm[Hg] 60-100 March 12, 2025 7 :10pm Height 65 [in_i] March 24, 2025 1:57pm Weight 115.21 kg March 24, 2025 1:57pm Heart Rate 56 /min 60-100 March 24, 2025 1:57pm BP Systolic 179 mm[Hg] 100-140 March 24, 2025 1:57pm BP Diastolic 76 mm[Hg] 60-100 March 24, 2025 1:57pm BMI (Body Mass Index) 42.3 kg/m2 March 242024 1:57pm Height 65 [in_i] April 16, 2025 10:20am Weight 115.66 kg April 16, 2025 10:20am Heart Rate 63 /min 60-100 April 16, 2025 10:20am Respiratory rate 12 /min -April 16, 10:20am Oxygen saturation by Pulse oximetry 96 % 95-100 April 16, 2025 10:20 am BP Systolic 137 mm[Hg] 100-140 April 16, 2025 10:20am BP Diastolic 77 mm[Hg] 60-100 April 16, 2025 10:20am BMI (Body Mass Index) 42.4 kg/m2 April 162024 10:20am Height 65 [in_i] April 21, 2025 2:20pm Weight 115.66 kg April 21, 2025 2:20pm Heart Rate 63 /min 60-100 April 21, 2025 2:20pm BP Systolic 165 mm[Hg] 100-140 April 21, 2025 2:20pm BP Diastolic 80 mm[Hg] 60-100 April 21, 2025 2:20pm BMI (Body Mass Index) 42.4 kg/m2 April 122024 2:20pm Height 65 [in_i] May 21, 2025 11:08am Weight 122.07 kg May 21, 2025 11:08am Heart Rate 70 /min 60-100 May 21, 2025 11:08am Respiratory rate 14 /min -May 21, 2025 11:08am Oxygen saturation by Pulse oximetry 95 % 95-100 May 21, 2025 11:0 8am BP Systolic 180 mm[Hg] 100-140 May 21, 2025 11:08am BP Diastolic 93 mm[Hg] 60-100 May 21, 2025 11:08am BMI (Body Mass Index) 44.7 kg/m2 May 122024 11:08am Advance Directives Advance Directive Response Recorded Date/ Time Advance Directives July 11:28am Insurance Providers Guarantor Kati Luevano Address [address] [place] [address] [place] [address] Contact Info. Home Phone: Payer Policy Id Subscriber's Name Subscriber Id Effectiv e Date Expiration Date Medicare [id number] Kati Luevano [id number] Encounters Encounter Location(s) Arrival/Admit Date Discharge/Depart Date Provider(s) Non-patient / Non-visit -[employer] March 02, 2025 6:00am Cherie Rapp MD Departed Physician/Prov ider Office Visit -[facility] March 10, 2025 11:03am March 10, 2025 11:31am Vandana Emery APRN Departed Emergency -Emergency Room March 12, 2025 1:23pm March 12, 2025 7:21pm Non-patient / Non-visit -[facility] March 13, 2025 9:28am Wandy Alvarez CMA Departed Physician/Prov ider Office Visit -[facility] March 24, 2025 1:51pm March 24, 2025 2:32pm Theodora Cuevas MD Departed Physician/Prov ider Office Visit -[facility] April 16, 2025 10:19am April 16, 2025 10:54am Theodora Cuevas MD Departed Physician/Prov ider Office Visit -[facility] April 21, 2025 2:10pm April 21, 2025 2:43pm Vandana Emery APRN Non-patient / Non-visit -[employer] May 11, 2025 12:00pm Vandana Emery APRN Non-patient / Non-visit -[facility] May 13, 2025 9:25am Wandy Alvarez CMA Departed Physician/Prov ider Office Visit -[facility] May 21, 2025 10:52am May 21, 2025 11:36am Theodora Cuevas MD Recent Diagnosis Onset Date Admit Date Diarrhea Unknown March 10, 2025 11:03am Dyspepsia Unknown March 10, 2025 11:03am GERD (gastroesophageal reflux disease) Unknown March 10, 2025 11:03am IBS (irritable bowel syndrome) Unknown A pril 2024 11:03am Diarrhea Unknown March 24, 2025 1 :51pm Longstanding persistent atrial fibrillation Unkn own March 24, 2025 1:51pm Type 2 diabetes mellitus wit h hyperglycemia, with long-term current use of Unknown March 24, 2025 1:51pm UTI (urinary tract infection) Unknown Ma y 2024 1:51pm A-fib Unknown April 16, 2025 1 0:19am Class 3 severe obesity with body mass index (BMI) of 40.0 to 44.9 in adult Unknown April 16, 2025 10:19am Contact dermatitis Unknown April 16 10:19am Type 2 diabetes mellitus wit h hyperglycemia, with long-term current use of Unknown April 16, 2025 10:19am GERD (gastroesophageal reflux disease) Unknown April 21, 2025 2:10pm IBS (irritable bowel syndrome) Unknown J 2024 2:10pm Assessments Diagnosis Onset Date Resolution Status Admit Date Diarrhea acute March 10 11:03am Dyspepsia acute March 10 11:03am GERD (gastroesophageal reflu x disease) acute March 10, 2025 11:03am IBS (irritable bowel syndrome) acute March 10, 2025 11:03am Diarrhea acute March 24, 2025 1:51pm Longstanding persistent atri al fibrillation acute March 24, 2025 1 :51pm Type 2 diabetes mellitus wit h hyperglycemia, with long-term current use of acute March 24, 2025 1 :51pm UTI (urinary tract infection) acute March 24, 2025 1:51pm A-fib acute April 16, 2025 10:19am Class 3 severe obesity with body mass index (BMI) of 40.0 to 44.9 in adult acute April 16, 2025 1 0:19am Contact dermatitis acute April 162024 10:19am Type 2 diabetes mellitus wit h hyperglycemia, with long-term current use of acute April 16, 2025 1 0:19am GERD (gastroesophageal reflu x disease) acute April 21, 2025 2:10pm IBS (irritable bowel syndrome) acute April 21, 2025 2:10pm Plan of Treatment Author Cheng [facility] Authored March 10, 2025 12: 42pm A 79-year-old female patient with diagnosis of GERD, dyspepsia particularly bloating and abdominal pain, diarrhea predominant IBS. Patient has been on a regular regimen of as needed Lomotil for the past few years, patient does describe this medication as helpful for her bowel movements however does not utilize this on a regular schedule and gets periodic flareups about twice per month Patient reflux has been under good control with current omeprazole, Pepcid and Carafate regimen. Patient was scheduled for EGD however she canceled this due to ER visit at [facility] Patient given orders for the low FODMAP diet, lifestyle management including increased dietary fiber twice daily Metamucil and probiotics. Patient has had multiple endoscopy test including both EGD and colonoscopy at the [facility]. These records are requested for further evaluation and treatment of her chronic symptoms Follow-up in 6 weeks to discuss treatment efficacy and further consideration related to her chronic conditions Author Theodora Cuevas [facility] Authored April 16, 2025 11:00 am With her diabetes, would jose e id oral steroids. Gave samples of zyrtec and triamcinolone topical cream for her rash. Continue healthy diet and activity as tolerated. Sees Cardiology next week and will discuss and plan Watchman procedure. Basaglar refilled at 30 units. Sees diabetes clinic in June Reports home glucose readings have improved. [facility] Authored April 21, 2025 2:45 pm A 79-year-old female patient with diagnosis of IBS and GERD Patient is ordered stool testing for recurrent diarrhea despite Lomotil and loperamide dosing, patient ordered stool culture, GI PCR profile, TSH testing as she is hypothyroid, C. difficile C and CMP Continue Prilosec, Carafate and as needed Pepcid Consider Lotronex, colestipol, cholestyramine as current bowel regimen has been ineffective with regard to fecal urgency, patient averaging 3-4 urgent bowel movements per day. Due to functional limitations and lymphedema patient unable to get to the bathroom sometimes Author Theodora Cuevas [facility] Authored March 24, 2025 4:25p m Referral to Diabetes Clinic. Followup w [facility] Cardiology as scheduled. lomotil refilled for short term use. Consider repeat culture for c diff if symptoms do not clear. nitrofurantoin prescribed. Future Tests Future scheduled test information is unavailable Pending Tests Test Name Ordered Date Scheduled Date Comprehensive Metabolic Panel April 21, 2025 2: 28pm Future Visits Future appointment information is unavailable Referrals to Other Providers Reason for Referral Referral Start Date Provider Provider Contact Information Provider Address Theodora Cuevas MD Work Phone: [address] [facility] [address] Future Procedures Procedure Name Ordered Date Scheduled Date Clostridium Difficile April 21, 2025 2:28pm Gastrointestinal Profile, PCR April 21, 2025 2: 25pm Send Out Stool Culture April 21, 2025 2:25pm Thyroid Stim Hormone w/Rflx April 21, 2025 2:28 pm Future Medications Future medication information is unavailable Patient Instructions Instruction Admit Date Dizziness in adults - ED dis charge instructions High blood sugar in adults - ED discharge instructions March 12, 2025 1:23pm
[2025-05-28] VITALS (14 sets, daily range): BP systolic 133–179; BP diastolic 69–93; PULSE 61–83; TEMP 36.4–36.6; O2SAT 89–98; BMI 47.9; BMI 45.6
--- OUTSIDE RECORDS SUMMARY | 2025-05-28 04:34 | XMS_ITS | Encounter Summary ---
Author Organization [facility] Address [address] [place] [address] Care Team Providers Care Java Technical Manager Name Role Phone Theodora Cuevas MD Primary Care Provider [phone] Encounter Details Date Type Department Care Team (Late st Contact Info) Description 05/07/2025 Telephone [facility] Vascular Lab [address] [place] [id number] Mary Carson RN Social History Tobacco Use Types Packs/Day Years Used Date Smoking Tobacco: Former Cigarettes Smokeless Tobacco: Never Alcohol Use Standard Drinks/Week Comments Not Currently 0 (1 standard drink = 0.6 oz pur e alcohol) [place] Safety & Environment Answer Date Rec orded [...] as of this encounter Plan of Treatment Not on file documented as of this encounter Visit Diagnoses Not on filedocumented in this encounter Care Teams Java Technical Manager Relationship Specialty Start Date End Date Theodora Cuevas MD [address] PCP - General 07/20/22 documented as of this encounter
--- OUTSIDE RECORDS SUMMARY | 2025-05-28 04:34 | XMS_ITS | Clinical Summary ---
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 insulin 05/20/2024 Lumbar degenerative [...] Care Team Description 05/07/2025 Travel 05/07/2025 Telephone [facility] Heart and Vascular Center Vascular Lab [address] [place] [address] Mary Carson RN 04/27/2025 Refill [facility] [address] [place] [address] Angelica Valencia MA 04/22/2025 11:00 AM EDT Office Visit [address] [place] [address] Akira Kaplan MD Chronic diastolic congestive heart failure (CMS/HCC) (Primary Dx); Paroxysmal atrial fibrillation (CMS/HCC); 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; Impairment of balance; Recurrent falls 04/14/2025 Refill [facility] [address] [place] [address] Angelica Valencia MA Chronic diastolic heart failure (CMS/HCC) 03/02/2025 11:00 AM EDT Office Visit [facility] [address] [place] [facility] [address] Byron Lambert MD Chronic diastolic congestive heart failure (CMS/HCC) (Primary Dx); Paroxysmal atrial fibrillation (CMS/HCC); Atherosclerosis of red devil coronary artery of red devil heart without angina pectoris; Primary hypertension; Stage 3 chronic kidney disease, unspecified whether stage 3a or 3b CKD (CMS/HCC); Morbid obesity (CMS/HCC); Type 2 diabetes mellitus with hyperglycemia, with long-term current use of insulin (CMS/HCC); Pure hypercholesterolemia; Pulmonary hypertension (CMS/HCC) 03/02/2025 Orders Only [facility] [address] [place] [address] Angelica Valencia MA 03/02/[address] [id number] Angelica Valencia MA from Last 3 Months [...] 04/22/2025 11:14 AM EDT Plan of Treatment Health Maintenance Due Date Last Done Comments Diabetes: Hemoglobin A1C 1945 Medicare Annual Wellness (AWV) 1945 Diabetes: Retinopathy Screening 1956 Depression Screening 1958 Pneumococcal Vaccine: 50+ Years (1 of 2 - PCV) 1965 Adult Tetanus 1968 Zoster Vaccines (1 of 2) 1996 08/24/2009 Fall Risk Screening 2011 COVID-19 Vaccine ( season) 2024 09/28/2023, 10/28/2022, 10/03/2021, Additional history exists Influenza Vaccine (#1) 2025 08/28/2016, 2008 HIB Vaccines Aged Out No longer eligi [...] topic Insurance [employer]VANTAGE Care Teams Knife Setter Grinder Machine Relationship Specialty Start Date End Date Theodora Cuevas MD [address] [facility] [address] PCP - General 07/20/22
--- OUTSIDE RECORDS SUMMARY | 2025-05-28 04:34 | XMS_ITS | Clinical Summary ---
Author Organization [facility] Address [id number] [address] [place] [address] Care Team Providers Care Us Marketing Director Name Role Phone Theodora Cuevas MD Primary Care Provider [phone] Allergies Active Allergy Reactions Criticality Noted Date Comments Shellfish Derived Hives 10/04/2022 Pt unsure if iodine can be used on the skin Sulfa (Sulfonamide Antibiotics) 04/15/2021 Medications atorvastatin (LIPITOR) 20 mg tablet Take 1 tablet (20 mg total) by mouth in the morning. Active vitamins A,C,E-zinc-rmoel er (ICAPS AREDS) 14,320-226-200 kcoq-gx-uirl capsule Take 2 capsules by mouth in the morning and 2 capsules before bedtime. Active omega 1-ysg-pij-fish oil 300-1,000 mg capsule Take by mouth. [...] 08/28/2016, 08/30/2009 Medical Devices Implanted Type Area State Game Protector Device Identifier Shelf Expiration Date Model / Serial / Lot Lens Iol Ultrasert 24.0d - [id number] - [id number] Implanted:Qty: 1 on 04/26/2021 by Renate Michaels MD at [facility] Lens Right: Eye [employer] 03/18/2023 [id number] 24.0 / [id number] / NA Lens Iol Ultrasert 22.5d - [id number] - [id number] Implanted:Qty: 1 on 10/26/2022 by Renate Michaels MD at [facility] Lens [employer] 05/08/2025 [id number] 22.5 / [id number] / NA Insurance [employer] MEDICARE Care Teams Us Marketing Director Relationship Specialty Start Date End Date Theodora Cuevas MD [facility] [place] [address] PCP - General Family Medicine 04/26/21
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
--- OUTSIDE RECORDS SUMMARY | 2025-05-28 04:35 | XMS_ITS | Patient Health Record ---
Author Organization [facility] in [place] Address [address] [place] [address] Care Team Providers Care Section Laborer Name Role Phone Theodora Cuevas Primary Care Provider Harman Boucher [phone] Results Component Value Reference Range Notes Urine Culture, Routine Reviewed date:07/17/2024 06:09:06 PM Interpretation: Performing Lab: Notes/Report: [facility] , Urine Culture, Routine See Below For Report Urine Culture, Routine Urine Culture, Routine Mixed urogenital court Urine Culture, Routine Urine Culture, Routine Less than 10,000 colonies/mL Urine Culture, Routine Urine Culture, Routine Performed at: [facility] Urine Culture, Routine Urine Culture, Routine [address] [place] [id number] Urine Culture, Routine Urine Culture, Routine Lamina Searcher: Elio Landis PhD, Phone: [phone] Urine Culture, Routine Performing Lab: see note LC - [facility] LB SEE REPORT - Detention Sergeant Id information not found for OBX-specific promotions producer legend UA RANDOM W or MICROSCOPIC Reviewed date:07/15/2024 08:21:48 PM Interpretation: Performing Lab: Notes/Report: [facility] , Color Urine LT. YELLOW YELLOW Clarity Urine CLEAR CLEAR Specific [place] Urine 1.020 1.005-1.025 pH Urine 6.5 5.0-9.0 [...] #/LPF Performing Lab: see note ML - [facility] LB Reason For Referral No Information Problems Problem Type SNOMED Code ICD Code Onset Dates Problem Status W/U Status Risk Notes Problem Hypomagnesemia (228389550) Hypomagnesemia (E83.42) Active confirmed Problem Atrial fibrillation (92932061) Atrial fibrillation (I48.91) Active confirmed Problem Hypertension (31378899) Hypertension (I10) Active confirmed Problem Congestive heart failure (30625757) CHF (congestive heart failure) (I50.9) Active confirmed Problem Gastroesophageal reflux disease (371032386) GERD (gastroesophageal reflux disease) (K21.9) Active confirmed Problem Hypothyroidism (90203589) Hypothyroidism (E03.9) Active confirmed Problem Diabetes mellitus type 2 (disorder) (69453007) DM2 (diabetes mellitus, type 2) (E11.9) Active confirmed Problem Acquired hypothyroidism (814713329) Acquired hypothyroidism (E03.9) Active confirmed Problem Iron deficiency anemia (36809557) Anemia, iron deficiency (D50.9) Active confirmed Problem Hyperglycemia due to type 2 diabetes mellitus (162036862766998) Diabetes mellitus with hyperglycemia (E11.65) Active confirmed Problem Acute on chronic systolic heart failure (208841080) Acute on chronic clinical systolic heart failure (I50.23) Active confirmed Problem Diabetes mellitus (34292296) Diabetes mellitus (E11.9) Active confirmed Encounters Encounter Location Date Provider Diagnosis [facility] [address] [place] [address] 07/15/2024 Harman Morales Plan Of Treatment No Information Insurance Providers Payer Name Payer Address Payer Phone Subscriber Number Group Number Insured Name Patient Relationship to Insured Coverage Start Date Coverage End Date [employer] ADV PLAN [address] [place] [address] [phone] [id number] Kati Luevano Self - patient is the insured 4
--- OUTSIDE RECORDS SUMMARY | 2025-05-28 04:35 | XMS_ITS | Clinical Summary ---
Author Organization [facility] Address [address], [address] [place] [address] Care Team Providers Care Security Associate Name Role Phone Theodora Cuevas MD Primary Care Provider [phone] Allergies Active Allergy Reactions Criticality Noted Date [...] on file Insurance [employer] MEDICARE Care Teams Security Associate Relationship Specialty Start Date End Date Theodora Cuevas MD PCP - General Family Medicine 02/13/18
--- OUTSIDE RECORDS SUMMARY | 2025-05-28 04:35 | XMS_ITS | Clinical Summary ---
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
--- OUTSIDE RECORDS SUMMARY | 2025-05-28 04:37 | XMS_ITS | CCD ---
Author Organization [facility] CliniSyme Care Team Providers Care Staff [employer] Officer Name Role Phone UNKNOWN, PROVIDER Unavailable [...] e ANALISA BRYANT Consulting Unavailable CESAR ., MARTINE Admitting Unavailable CESAR .MARTINE Attending Unavailable TENISHA, DR SHANTEL Alvarado Primary Care Unavailable LEATHA ALVAREZ Consulting Unavailable RENETTA MICHAELS Consulting Unavailable CESAR ., MARTINE Consulting Unavailable YAMEL MCCRACKEN Admitting Unavailable YAMEL [...] Attending Provider MD Eloina Hussein Referring Provider Tumo, DO Jorge Luis Ross Emergency Provider MD Shantel Steven Primary Care Provider Tupa, DO Jorge Luis M Emergency Provider MD Shantel Steven Primary Care Provider MD Shantel Steven Attending Provider MD Shantel Steven Attending Provider Shantel Steven MD Primary Care Provider LIZETT JACINTO Attending Unavailable SHANTEL STEVEN Referring Unavailable TIMMIS, CHRISTEL H Attending Unavailable STEVENSHANTEL Referring Unavailable TIMMIS, HCRISTEL H Attending Unavailable STEVEN, SHANTEL Referring Unavailable STUFRANCHESCA CARDONA Attending Unavailable STUFRANCHESCA CARDONA Attending Unavailable STU, FRANCHESCA Alvarado Attending Unavailable STU, FRANCHESCA Alvarado Attending Unavailable STU, FRANCHESCA lAvarado Attending Unavailable Angle PORRAS, Jorge Luis Ross Emergency Provider Shantel Steven MD Primary Care Provider Mauri Chavira DO Admit Provider nAge Vergara MD Other Provider Renetta Trivedi MD Other Provider Kavin Escobar DO Attending Provider Zhang Norwood DO Emergency Provider Daniele Jane DO Emergency Provider Shantel Cho MD Primary Care Provider Zhang Norwood DO Emergency Provider Daniele Jane DO Emergency Provider Shantel Cho MD Primary Care Provider Shantel Steven MD Primary Care Provider Jorge Calix DO Emergency Provider [phone] Shantel Steven Primary Care Unavailable Daniele Jane Admitting Unavailable Daniele Jane Attending Unavailable Shantel Steven Primary Care Unavailable Zhang Norwood Admitting Unavailable Zhang Norwood Attending Unavailable Shantel Steven Attending Unavailable Shantel Steven Admitting Unavailable Shantel Steven Primary Care Unavailable Jorge Luis Zavala Admitting Unavailable Jorge Luis Zavala Attending Unavailable Ange Vergara Unavailable Shantel Steven Primary Care Unavailable Mauri Chavira Admitting Unavailable Kavin Escobar Attending UnavailRenetta Renteria Consulting UnavailShantel Morales Primary Care Unavailable Jorge Calix Admitting Unavailable Jorge Calix Attending Unavailable Jorge Calix DO Emergency Provider Unavailable Shantel Steven MD Primary Care Provider Cherie Rapp MD Attending Provider Cheng Aviles APRN Attending Provider Jorge Calix DO Emergency Provider Unavailable Wandy Alvarez CMA Attending Provider UnavailShantel Morales MD Attending Provider SABRINA LUNA Attending Unavailable YAMEL MCCRACKEN Attending Unavailable YAMEL MCCRACKEN Attending Unavailable YAMEL MCCRACKEN Attending Unavailable RICA KAPLAN Attending Unavailable RICA KAPLAN Attending Unavailable SABRINA LUNA Attending Unavailable SABRINA LUNA Attending Unavailable SABRINA LUNA Attending Unavailable Allergies Allergy Classification Reported Allergen(s) Allergy Type Date of Onset Reaction(s) Facility (1 source) Iodine (And Iodine Containting Drugs) Drug allergy (disorder) 03-04-20 12 [facility] (20 sources) Shellfish; Translations: [Shellfish] Food allergy (disorder) 03-04-20 12 rash, Eruption of skin (disorder) [facility] (20 sources) Sulfonamides (Antibiotic); Translations: [SULFA (SULFONAMIDE ANTIBIOTICS)] Drug allergy (disorder) 03-04-20 12 Rash [facility]ository (20 sources) Sulfacetamide Drug Allergy 02-15-[address] [facility] (20 sources) Contrast media; Translations: [contrast media (iodine-based)] Drug allergy 02-15-20 24 Unknown (qualifier value), Rash [facility] [place] (6 sources) Sulfonamides (Antibiotic); Translations: [sulfa drugs] Drug allergy Diarrhea (finding) [facility] (2 sources) Glucosamine Drug Allergy [facility] (2 sources) Iodine (And Iodine Containting Drugs) Drug allergy (disorder) 08-09-20 17 [facility] (11 sources) Contrast media Propensity to adverse reactions 11-18-[address] [facility] Other (20 sources) Iodine; Translations: [IODINE] Drug Allergy 10-30-20 14 Other, Unknown [facility] Other (20 sources) Substance with sulfonamide structure and antibacterial mechanism of action (substance) Drug allergy 10-30-20 14 Unknown [facility] Other (11 sources) Dyes Propensity to adverse reactions Comment:CT Dyes,Dyes,IVP Dyes [facility] Other (20 sources) Shellfish; Translations: [shellfish derived] Allergy to substance 10-30-20 14 [facility] (20 sources) Iodinated Contrast Media; Translations: [Iodinated Contrast Media] Allergy to substance 02-15-20 24 [facility] (13 sources) metFORMIN; Translations: [METFORMIN HCL] Drug Allergy 07-03-20 24 [facility] (6 sources) Chocolate Flavoring Agent (Non-Screening) Propensity to adverse reactions 01-17-20 23 [facility] Work Phone: (12 sources) Shellfish-Derive d Products Drug Intolerance 03-15-20 18 [facility] (7 sources) Chocolate; Translations: [CHOCOLATE FLAVOR] Propensity to adverse reactions 01-17-20 23 [facility] Work Phone: (1 source) Sulfacetamide Drug Allergy 03-24-20 [facility] (1 source) Sulfonamides (Antibiotic) Drug allergy (disorder) 03-24-20 [facility] Repository Medications Current Medications Medication Drug Class(es) Dates Sig (Normalized) Sig (Original) 8 Hour Arthritis Pain Reliever (14 sources) ALPRAZolam 0.25 mg oral tablet (20 sources) Benzodiazepine Start: 02-19-2025 take 1 tablet by mouth three times daily as needed for anxiety Alprazolam 0.25 mg tablet Active 0.25 MG PO Three times daily as needed for anxiety February 19, 2025 12:00am Complies with drug therapy Start: 11-03-2024 End: 11-10-2024 Start: 06-05-2024 End: 11-10-2024 take 1 tablet by mouth twice daily Alprazolam 0.25 mg tablet Discontinued 0.25 MG PO Twice daily November 03, 2024 1:00am November 10, 2024 11:38am Start: 06-05-2024 End: 09-10-2024 Start: 01-17-2024 End: 03-25-2024 take 1 tablet by mouth twice daily as needed for anxiety Alprazolam 0.25 mg tablet Discontinued 0.25 MG PO Twice daily as needed for anxiety January 30, 2024 12:55pm March 25, 2024 3:46pm Start: 07-27-2022 End: 03-25-2024 take 1 tablet by mouth three times daily as needed Alprazolam 0.25 mg tablet Discontinued 0.25 MG PO Three times daily as needed January 17, 2024 1:00am January 30, 2024 12:56pm ascorbic acid 226 mg / beta carotene 10549 unt / cuprous oxide 0.8 mg / dl-alpha tocopheryl acetate 200 unt / zinc oxide 34.8 mg oral capsule (1 source) Vitamin C Start: 01-17-2024 take 1 capsule by mouth twice daily Vitamins A,C,Y-Znwi-Lpuybc (Preservision Areds) 4,296 mcg-226 mg-90 mg capsule Active 1 CAP PO Twice daily January 17, 2024 1:00am Complies with drug therapy ascorbic acid 113 mg / copper gluconate [...] MG PO Daily June 11, 2021 12:00am Complies with drug therapy atropine sulfate 0.025 mg / diphenoxylate hydrochloride 2.5 mg oral tablet (14 sources) Anticholinergic, Cholinergic Muscarinic Antagonist, Antidiarrheal Start: 02-09-2025 End: 03-24-2025 Start: 02-09-2025 End: 03-24-2025 take 1 tablet by mouth every six hours as needed for diarrhea Diphenoxylate-Atropine 2.5-0.025 mg tablet Active 1 TAB PO Every 6 hours as needed for diarrhea 08 06March 24, 2025 2:26pm Complies with drug therapy B-12 (5 sources) Start: 03-07-2021 B-12 Refills(s ) 0 Start Date: 03/07/21 Status: Ordered cholecalciferol 0.125 mg oral capsule (20 sources) Vitamin D Start: 02-19-2025 take 1 capsule by mouth once daily Cholecalciferol (Vitamin D3) 125 mcg (5,000 unit) capsule Active 125 MCG PO Daily February 19, 2025 12:00am Complies with drug therapy Start: 06-05-2024 End: 02-19-2025 take 1 capsule by mouth once daily Cholecalciferol (Vitamin D3) 25 mcg (1,000 unit) capsule Discontinued 25 MCG PO Daily June 05, 2024 12:00am February 19, 2025 9:04am Start: 01-17-2024 End: 06-05-2024 take 1 capsule by mouth once daily Cholecalciferol (Vitamin D3) 125 mcg (5,000 unit) capsule Discontinued 125 MCG PO Daily January 17, 2024 1:00am June 05, 2024 12:02pm take 1 capsule by [facility] every twenty-four hours Vitamin D3 125 MCG (5000 UT) 1 capsule Orally Once a day Active take 1 capsule by [facility] every twenty-four hours Vitamin D3 25 MCG (1000 UT) 1 capsule Orally Once a day Active cholestyramine resin 4000 mg powder for oral suspension (5 sources) Bile Acid Sequestrant Start: 03-07-2021 Questran 4 g/9 g ora l powder = 1 packet(s), Oral, Daily, # 30 EA, Refills(s) 11, Pharmacy: [id number], 165.1, cm, 03/07/21 13:49:00 EDT, Height/Length Dosing, 121.8, kg, 03/07/21 13:49:00 EDT, Weight Dosing Start Date: 03/07/21 Status: Ordered Start: 03-07-2021 Questran 4 g/9 g oral powder = 1 packet(s), Oral, Daily, # 30 EA, Refills(s) 11, Pharmacy: [id number], 165.1, cm, 03/07/21 13:49:00 EDT, Height/Length Dosing, 121.8, kg, 03/07/21 13:49:00 EDT, Weight Dosing Start Date: 03/07/21 Status: Ordered Dilt-CD 120 mg (14 sources) take 1 capsule by mouth once daily 24 hr dilTIAZem hydrochloride 120 mg extended release oral tablet (20 sources) Calcium Channel Khadijah Start: 02-19-2025 take 1 tablet by mouth once daily Diltiazem Hcl 120 mg tablet extended release 24 hr Active 120 MG PO Daily February 19, 2025 12:00am Complies with drug therapy Start: 07-27-2022 take 1 capsule by [facility] once daily diltiazem 120 mg oral capsule, extended release 120 mg = 1 cap(s), Oral, Daily, Refills(s) 0 Start Date: 07/27/22 Status: Ordered Start: 06-19-2021 End: 02-09-2025 take 1 capsule by mouth once daily Diltiazem Hcl 120 mg capsule,extended release 24hr Discontinued 120 MG PO Daily June 19, 2021 12:00am February 09, 2025 2:12pm End: 07-22-2024 take 1 tablet by mouth in the morning dilTIAZem (Cardizem) 120 MG immediate release tablet Take 120 mg by mouth in the morning. 07/22/2024 Discontinued (Duplicate order) take 1 capsule by mo [facility] every twelve hours dilTIAZem HCl ER 120 MG 1 capsule Orally Twice a day Active famotidine 20 mg oral tablet (20 sources) Histamine-2 Receptor Antagonist Start: 03-05-2025 End: 05-21-2025 take 1 tablet by mouth at bedtime Famotidine 20 mg tablet Active 0 .ROUTE .COMPLEX May 21, 2025 11:25am TAKE 1 TABLET BY MOUTH AT BEDTIME Complies with drug therapy Start: 02-19-2025 End: 03-05-2025 take 1 tablet by mouth once daily at bedtime Famotidine 20 mg tablet Discontinued 20 MG PO Daily at bedtime February 19, 2025 9:06am March 05, 2025 9:39am Start: 02-09-2025 End: 02-19-2025 Start: 01-06-2025 End: 02-19-2025 take 1 tablet by mouth at bedtime Famotidine 20 mg tablet Discontinued 0 .ROUTE .COMPLEX February 09, 2025 2:56pm February 19, 2025 9:09am TAKE 1 TABLET BY MOUTH AT BEDTIME Start: 01-17-2024 End: 01-06-2025 take 1 tablet by mouth once daily at bedtime Famotidine 20 mg tablet Discontinued 20 MG PO Daily at bedtime December 09, 2024 2:56pm January 06, 2025 3:14pm Start: 01-07-2023 take 1 tablet by joesph [...] Glucose Scanning Reade r (Freestyle Familia 2 Rosalia) misc (17 sources) Start: 09-10-2024 Flash Glucose Scanning Rosalia (Freestyle Familia 2 Rosalia) misc Active 0 .Route September 10, 2024 8:12am As directed Start: 09-10-2024 Flash Glucose Scanning Rosalia (Freestyle Familia 2 Rosalia) misc Active 0 .Route 1 September 10, 2024 7:12am As directed Start: 07-16-2024 End: 09-10-2024 Flash Glucose Scanning Reade r (Freestyle Familia 2 Rosalia) misc Discontinued 0 .Route July 16, 2024 12:00am September 10, 2024 8:13am As directed Start: 07-16-2024 End: 09-10-2024 Flash Glucose Scanning Reade r (Freestyle Familia 2 Rosalia) mis Discontinued 0 .Route July 15, 2024 11:00pm September 10, 2024 7:13am As directed Start: 07-16-2024 Flash Glucose Scanning Rosalia (Freestyle Familia 2 [place]) [facility] [place] 0 .Route July 16, 2024 12:00am As directed Flash Glucose Sensor (Freest yle Familia 2 Sensor) kit (20 sources) Start: 04-20-2025 Flash Glucose Sensor (Freestyle Familia 2 Sensor) kit Active 0 .ROUTE .COMPLEX April 20, 2025 9:51am USE DIRECTED to test BLOOD SUGAR DAILY *change EVERY 14 days * Start: 02-18-2025 End: 04-20-2025 Flash Glucose Sensor (Freest yle Familia 2 Sensor) kit Discontinued 0 .ROUTE .COMPLEX February 18, 2025 8:30am April 20, 2025 9:51am USE DIRECTED to test BLOOD SUGAR DAILY *change EVERY 14 days * Start: 02-18-2025 Flash Glucose Sensor (Freestyle Familia 2 Sensor) kit Active 0 .ROUTE .COMPLEX 1 February 18, 2025 8:30am USE DIRECTED to test BLOOD SUGAR DAILY *change EVERY 14 days * Start: 12-23-2024 End: 02-18-2025 Flash Glucose Sensor (Freest yle Familia 2 Sensor) kit Discontinued 0 .ROUTE .COMPLEX December 23, 2024 2:15pm February 18, 2025 8:30am USE DIRECTED to test BLOOD SUGAR DAILY [...] 0 .ROUTE .COMPLEX 1 October 27, 2024 4:09pm December 23, 2024 [...] 1 May 07, 2024 12:00am As directed gabapentin 100 mg oral capsule (11 sources) [...] pen injector (20 sources) Insulin Analog Start: 04-16-2025 Insulin Glargine (Basaglar Kwikpen U-100 Insulin) 100 unit/mL (3 mL) insulin pen Active 30 UNIT SUBCUT Every evening April 16, 2025 10:45am Complies with drug therapy Start: 06-13-2024 inject 20 [IU] by garcia bcutaneous injection in the morning Basaglar KwikPen 100 UNIT/ML pen Inject 20 Units under the skin in the morning and 20 Units before bedtime. 06/13/2024 Active Start: 06-05-2024 End: 04-16-2025 Insulin Glargine (Basaglar Kwikpen U-100 Insulin) 100 unit/mL (3 mL) insulin pen Discontinued 20 UNIT SUBCUT Every evening February 19, 2025 9:06am April 16, 2025 10:46am Start: 06-05-2024 End: 04-16-2025 Insulin Glargine (Basaglar Kwikpen U-100 Insulin) 100 unit/mL (3 mL) insulin pen Discontinued 15 UNIT SUBCUT Every evening December 31, 2024 11:58am February 19, 2025 9:09am Start: 03-25-2024 End: 04-03-2024 Insulin Glargine (Lantus Cha ostar U-100 Insulin) 100 unit/mL (3 mL) insulin pen Discontinued 20 UNIT SUBCUT Every morning March 25, 2024 12:00am April 03, 2024 11:47am Start: 03-25-2024 End: 04-03-2024 Start: 03-13-2024 inject 35 [IU] by garcia [...] 100 unt/ml pen injector (20 sources) Start: 03-02-2025 Insulin Nph Is oph U-100 Human (Novolin N Flexpen) 100 unit/mL (3 mL) insulin pen Active 0 .ROUTE .COMPLEX March 02, 2025 8:26am INJECT SUBCUTANEOUSLY THREE TIMES DAILY according to sliding scale (if BLOOD SUGAR is BETWEEN 150-199 INJECT 3 (THREE) UNITS, if BETWEEN 200-249 INJECT FOUR UNITS, if BETWEEN 250-299 INJECT 7 (SEVEN) UNITS, if BETWEEN 300-349 INJECT TEN UNITS, if BETWEEN 350-399 INJECT 12 UNITS, if 400 or great INJECT 14 UNITS) Complies with drug therapy Start: 03-02-2025 Start: 01-24-2024 insulin NPH, Jannet joce, (HumuLIN N,NovoLIN N) 100 UNIT/ML injection Inject 1 Units under the skin 01/24/2024 Active Start: 01-24-2024 End: 03-02-2025 inject 14 [IU] by subcutaneous injection three times daily Insulin Nph Isoph U-100 Human (Novolin N Flexpen) 100 unit/mL (3 mL) insulin pen Discontinued 1 UNIT SUBCUT Three times daily January 24, 2024 12:00am March 02, 2025 8:26am 150-199 mg/dl 3 unit 200-249 mg/dl 4 unit 250-299 mg/dl 7 unit 300-349 mg/dl 10 unit 350-399 mg/dl 12 unit greater than or = 400 mg/dl 14 unit Lantus Solostar Pen (5 sources) Start: 07-27-2022 inject 35 [IU] by subcutaneous injection once daily at bedtime Lantus Solostar Pen 35 unit(s), SubCutaneous, Once a day (at bedtime), Refill(s) 0 Start Date: 07/27/22 Status: Ordered levothyroxine sodium 0.125 mg oral tablet (20 sources) l-Thyrox ine Start: 02-10-2025 End: 03-05-2025 take 1 tablet by mouth once daily Levothyroxine 125 mcg tablet Active 0 .ROUTE .COMPLEX March 05, 2025 9:38am TAKE 1 TABLET BY MOUTH DAILY Complies with drug therapy Start: 02-10-2025 End: 03-05-2025 take 1 tablet by mouth once daily Levothyroxine 125 mcg tablet Discontinued 0 .ROUTE .COMPLEX February 10, 2025 8:29am March 05, 2025 9:39am TAKE 1 TABLET BY MOUTH DAILY Start: 02-10-2025 take 1 tablet by joesph th once daily Levothyroxine 125 mcg tablet Active 0 .ROUTE .COMPLEX February 10, 2025 8:29am TAKE 1 TABLET BY MOUTH DAILY Start: 02-09-2025 End: 02-10-2025 take 1 capsule by mouth once daily Levothyroxine 125 mcg capsule Discontinued 125 MCG PO Daily February 09, 2025 2:56pm February 10, 2025 8:29am Start: 11-03-2024 End: 02-09-2025 take 1 capsule by mouth once daily Levothyroxine 112 mcg capsule Discontinued 112 MCG PO Daily February 09, 2025 8:14am February 09, 2025 2:09pm Start: 06-07-2024 take 1 tablet by ojesph th before mealtime levothyroxine (Synthroid, Levoxyl) 125 [...] 90 Active Loperamide (14 sources) Opioid Agonist Multiple Vitamins-Minerals (PRESERVISION AREDS 2 PO) (8 sources) Multiple Vitamins-Minerals (PRESERVISION AREDS 2 PO) Take by mouth Active Nystatin 100,000 unit/gram powder (2 sources) Start: 02-19-2025 Nystatin 100,000 unit/gram powder Active TOPICAL February 19, 2025 12:00am omeprazole 40 mg delayed release oral capsule (20 sources) Proton Pump Inhibitor Start: 01-06-2025 End: 04-21-2025 take 1 capsule by mouth once daily as needed Omeprazole 40 mg capsule,delayed release(DR/EC) Active 0 .ROUTE .COMPLEX as needed April 21, 2025 2:18pm TAKE 1 CAPSULE BY MOUTH DAILY PRN; Complies with drug therapy Start: 12-09-2024 End: 01-06-2025 take 1 capsule [...] Ordered propranolol hydrochloride 40 mg oral tablet (20 sources) beta-Adrenergic Khadijah Start: 03-05-2025 take 1 tablet by mouth twice daily Propranolol 40 mg tablet Active 0 .ROUTE .COMPLEX 60 March 05, 2025 9:38am TAKE 1 TABLET BY MOUTH TWICE DAILY Complies with drug therapy Start: 12-26-2024 End: 03-05-2025 take 1 tablet by mouth twice daily Propranolol 40 mg tablet Discontinued 40 MG PO Twice daily February 09, 2025 2:56pm March 05, 2025 9:39am rivaroxaban 20 mg oral tablet (20 sources) Factor Xa Inhibitor Start: 02-19-2025 take 1 tablet by mouth once daily at dinner Rivaroxaban (Xarelto) 20 mg tablet Active 20 MG PO Daily February 19, 2025 12:00am must administer with evening meal Complies with drug therapy Start: 06-12-2021 End: 02-09-2025 take 1 tablet by mouth once daily Rivaroxaban (Xarelto) 20 mg tablet Discontinued 20 MG PO Daily June 30, 2024 9:49am February 09, 2025 2:13pm take 0.5 tablet by m outh once daily Xarelto 10 MG 1/2 tablet Orally Once a day for 90 days Active Selenium 200 MCG (4 sources) take 1 tablet by mouth once daily Selenium 200 MCG 1 tablet Orally Once a day Active triamcinolone acetonide 5 mg/ml topical cream (4 sources) Corticosteroid Start: 04-16-2025 End: 05-21-2025 Triamcinolone Acetonide 0.5 % cream Active 1 APPLIC TOPICAL Twice daily as needed for itching May 21, 2025 11:27am Complies with drug therapy True Metrix Blood Glucose Test - (5 sources) True Metrix Bloo d Glucose Test - TEST BLOOD SUGAR EVERY DAY for 90 Active vitamin b12 1 mg extended release oral tablet (1 source) Vitamin B12 take 1 tablet by mouth every twenty-four hours Vitamin B12 1000 MCG [...] capsule Orally Once a day Active Vitamins A,C,K-Ivyt-Dwuqmh (Preservision Areds) 4,296 mcg-226 mg-90 mg capsule (18 sources) Start: 01-17-2024 take 1 capsule by mouth twice daily Vitamins A,C,U-Kncy-Vmlsgd (Preservision Areds) 4,296 mcg-226 mg-90 mg capsule Active 1 CAP PO Twice daily January 17, 2024 12:00am Start: 01-17-2024 take 1 capsule by wy ut twice daily Vitamins A,C,L-Uwcl-Wtnctp (Preservision Areds) 4,296 mcg-226 mg-90 mg capsule Active 1 CAP PO Twice daily January 17, 2024 1:00am (20 sources) Start: 04-20-2025 Start: 03-05-2025 Start: 03-05-2025 Start: 02-19-2025 Start: 02-19-2025 End: 03-12-2025 Start: 02-18-2025 End: 04-20-2025 Start: 02-18-2025 Start: 02-10-2025 End: 03-05-2025 Start: 02-09-2025 End: 02-09-2025 Start: 01-06-2025 End: 02-09-2025 Start: 01-06-2025 End: 02-09-2025 Start: 12-23-2024 End: 02-18-2025 Start: 10-27-2024 End: 12-23-2024 Start: 09-10-2024 Start: 09-01-2024 End: 10-27-2024 Start: 08-12-2024 End: 10-20-2024 Start: 07-17-2024 End: 09-01-2024 Start: 07-17-2024 Start: 07-16-2024 End: 09-10-2024 Start: 07-16-2024 Start: 06-05-2024 End: 07-16-2024 Start: 06-05-2024 Start: 05-07-2024 End: 07-17-2024 Start: 05-07-2024 Start: 04-29-2024 End: 06-05-2024 Start: 03-31-2024 End: 10-16-2024 Start: 03-31-2024 Start: 03-31-2024 End: 03-31-2024 Start: 03-25-2024 Start: 02-19-2024 End: 05-27-2024 Start: 01-23-2024 End: 04-03-2024 Start: 01-22-2024 End: 01-23-2024 Start: 01-17-2024 Start: 01-17-2024 End: 04-03-2024 Start: 01-16-2024 End: 01-24-2024 Start: 01-15-2024 End: 01-16-2024 Start: 06-12-2021 End: 01-15-2024 Completed/Discontinued Medications Medication Drug Class(es) Dates Sig (Normalized) Sig (Original) acetaminophen 325 mg / oxyCODONE hydrochloride 5 mg oral tablet (20 sources) Opioid Agonist Start: 02-19-2025 End: 02-19-2025 take 1 tablet by mouth once daily as needed Oxycodone-Acetamino phen 5-325 mg tablet Discontinued 1 TAB PO Daily as needed February 19, 2025 12:00am February 19, 2025 9:19am Start: 02-19-2025 End: 02-19-2025 Start: 07-07-2024 End: 02-09-2025 take 1 tablet by mouth once daily as needed for pain Oxycodone-Acetaminophen 5-325 mg tablet Discontinued 1 TAB PO Daily as needed for pain August 07, 2024 September 10, 2024 8:13am Start: 07-07-2024 End: 02-09-2025 Start: 06-07-2024 End: 06-07-2024 take 1 tablet [...] PO Daily as needed for pain 30 June 05, 2024 June 07, 2024 7:29am [...] 19, 2021 3:13am Start: 06-12-2021 End: 06-19-2021 [id number] 200 actuat albuterol 0.09 mg/actuat metered dose inhaler (20 sources) beta2-Adrenergic Agonist Start: 10-25-2024 End: 11-03-2024 Albuterol Sulfate 90 mcg/actuation HFA aerosol inhaler Discontinued 2 INH INHALATION Q6H as needed for shortness of breath or wheezing 06 16October 25, 2024 1:00am November 03, 2024 12:41pm administer with spacer Start: 10-25-2024 End: 11-03-2024 Start: 01-17-2024 End: 04-03-2024 take 1 puff(s) [...] bedtime Orally Once a day Not-Taking amylase [id number] unt / lipase 20959 unt / protease [id number] unt delayed release oral capsule (20 sources) Start: End: Xsgpdj-Nbwohylx-Aik lase (Creon) 24,000-76,000 -120,000 unit capsule,delayed release(DR/EC) Discontinued 1 - 2 CAP PO 1-2 TIMES DAILY June 11, 2021 12:00am June 19, 2021 3:12am Start: 06-11-2021 End: 06-19-2021 Start: 05-10-2021 Creon 24,000 u nits oral delayed release capsule See Instructions, take 3 caps with each meal and 2 caps with each snack., # 390 caplet(s), Refills(s) 0, Pharmacy: [id number], 165.1, cm, 04/18/21 13:02:00 EDT, Height/Length Dosing, 116.4, kg, 04/18/21 13:02:00 EDT, Weight Dosing Start Date: 05/10/21 Status: Ordered bifidobacterium infantis 4 mg oral capsule (20 sources) Start: 06-05-2024 End: 11-03-2024 take 1 capsule by mouth once daily Bifidobacterium Infantis (Align (B.Infantis)) 4 mg capsule Discontinued 4 MG PO Daily June 05, 2024 12:00am November 03, 2024 12:41pm biotin 10 mg oral capsule (20 sources) Start: 02-19-2025 End: 03-12-2025 Biotin 10,000 mcg capsule Discontinued 10947 MCG PO February 19, 2025 12:00am March 12, 2025 3:57pm Start: 06-05-2024 End: 11-03-2024 take 1 capsule by mouth once daily Biotin 10,000 mcg capsule Discontinued 10174 MCG PO daily June 05, 2024 12:00am November 03, 2024 12:41pm Start: 06-05-2024 End: 11-03-2024 Start: 01-17-2024 End: 04-03-2024 take 1 capsule by mouth once daily Biotin 5 mg capsule Discontinued 5 MG PO Daily January 17, 2024 1:00am April 03, 2024 11:46am take 1 capsule by [facility] every twenty-four hours Biotin 5 MG 1 capsule Orally Once a day Active bumetanide 1 mg oral tablet (19 sources) Loop Diuretic Start: 06-18-2024 End: 06-18-2025 take 1 tablet by mouth twice daily Bumetanide 1 mg tablet Discontinued 1 MG PO Twice daily February 09, 2025 12:00am February 09, 2025 2:52pm busPIRone hydrochloride 5 mg oral tablet (20 sources) Start: 01-06-2025 End: 03-05-2025 take 1 tablet by mouth twice daily Buspirone 5 mg tablet Discontinued 0 .ROUTE .COMPLEX 60 February 09, 2025 8:14am March 05, 2025 9:39am TAKE 1 TABLET BY MOUTH TWICE DAILY Start: 12-09-2024 End: 01-06-2025 take 1 tablet by mouth twice daily Buspirone 5 mg tablet Discontinued 5 MG PO Twice daily 60 December 09, 2024 1:00am January 06, 2025 3:14pm carvedilol 6.25 mg oral tablet (20 sources) alpha-Adrenergic Khadijah, beta-Adrenergic Khadijah Start: 06-12-2021 End: 01-17-2024 take 1 tablet by mouth twice daily at mealtime Carvedilol 6.25 mg Tablet Discontinued 6.25 MG PO Twice daily with meals 60 June 12, 2021 12:00am January 17, 2024 5:18pm cefdinir 300 mg oral capsule (20 sources) Cephalosporin Antibacterial Start: 06-12-2021 End: 01-17-2024 take 1 capsule by mouth twice daily Cefdinir 300 mg capsule Discontinued 300 MG PO Twice daily 10 June 12, 2021 12:00am January 17, 2024 5:18pm cephalexin 500 mg oral capsule (17 sources) Cephalosporin Antibacterial Start: 03-12-2025 End: 03-24-2025 take 1 capsule by mouth twice daily Cephalexin 500 mg capsule Discontinued 500 MG PO Twice daily 25 05March 12, 2025 12:00am March 24, 2025 2:26pm Start: 10-22-2024 End: 11-03-2024 take 1 capsule by mouth twice daily Cephalexin 500 mg capsule Discontinued 500 MG PO Twice daily 25 05October 22, 2024 1:00am November 03, 2024 12:41pm ciprofloxacin 250 mg oral tablet (13 sources) Quinolone Antimicrobial Start: 07-21-2024 End: 10-16-2024 [...] Active diclofenac sodium 0.01 mg/mg topical gel (12 sources) Nonsteroidal Anti-inflammatory Drug Start: 10-20-2024 End: 11-03-2024 apply 4 g topically four times daily as needed for pain Diclofenac Sodium 1 % Gel Discontinued 4 GM TOPICAL Four times daily as needed for neck muscle pain October 20, 2024 1:00am November 03, 2024 12:41pm Diphenoxylate-At ropine 2.5-0.025 mg tablet (4 sources) Start: 02-09-2025 End: 02-09-2025 take 1 tablet by mouth every six hours as needed Diphenoxylate-Atr opine 2.5-0.025 mg tablet Discontinued 1 TAB PO Every 6 hours as needed February 09, 2025 12:00am February 09, 2025 2:51pm DULoxetine 20 mg delayed release oral capsule (20 sources) Serotonin and Norepinephrine Reuptake Inhibitor Start: 02-19-2025 End: 04-21-2025 take 1 capsule by mouth once daily Duloxetine 20 mg capsule,delayed release(DR/EC) Discontinued 20 MG PO Daily February 19, 2025 9:05am April 21, 2025 2:19pm Start: 01-06-2025 End: 02-19-2025 take 1 capsule by mouth once daily Duloxetine 20 mg capsule,delayed release(DR/EC) Discontinued 0 .ROUTE .COMPLEX February 09, 2025 2:56pm February 19, 2025 9:09am TAKE 1 CAPSULE BY MOUTH DAILY Start: 12-09-2024 End: 01-06-2025 take 1 capsule by mouth once daily Duloxetine (Cymbalta) 20 mg capsule,delayed release(DR/EC) Discontinued 20 MG PO Daily December 09, 2024 1:00am January 06, 2025 3:14pm fluconazole 100 mg oral tablet (20 sources) Azole Antifungal Start: 06-12-2021 End: 01-17-2024 take 1 tablet by mouth once daily Fluconazole 100 mg tablet Discontinued 100 MG PO Daily 05 18June 12, 2021 12:00am January 17, 2024 5:18pm furosemide 40 mg oral tablet (20 sources) Loop Diuretic Start: 10-20-2024 End: 02-19-2025 take 1 tablet by mouth once daily Furosemide (Lasix) 40 mg tablet Active 40 MG PO Daily February 19, 2025 12:00am Complies with drug therapy Start: 10-20-2024 End: 02-19-2025 Furosemide 40 mg tablet Disc ontinued 40 MG PO Every 48 hours November 11, 2024 3:11pm February 19, 2025 9:09am further refills or dose adjustment per Nephrology. [...] Insulin) 100 unit/mL (3 mL) Insulin Pen (18 sources) Start: 06-12-2021 End: 01-15-2024 inject 14 [...] January 16, 2024 3:13pm 3 ml insulin aspart, human 100 unt/ml pen injector (3 sources) Insulin Analog Start: 01-15-2024 End: 01-16-2024 inject 1 [IU] by subcutaneous injection three times daily Insulin Aspart U-100 (Novolog Flexpen U-100 Insulin) 100 unit/mL (3 mL) insulin pen Discontinued 1 UNIT SUBCUT Three times daily January 15, 2024 3:26pm January 16, 2024 3:13pm Start: 06-12-2021 End: 01-24-2024 inject 14 [IU] by subcutaneous [...] shampoo (20 sources) Azole Antifungal Start: 12-26-2024 End: 02-09-2025 Ketoconazole 2 % shampoo Discontinued 1 APPLIC TOPICAL Twice a Week December 26, 2024 1:00am February 09, 2025 2:52pm Start: 08-07-2024 End: 11-03-2024 Ketoconazole 2 % cream Disco ntinued 1 APPLIC TOPICAL Twice daily August 07, 2024 12:00am November 03, 2024 12:41pm Start: 02-15-2024 End: 04-29-2024 Ketoconazole 2 % cream Disco ntinued 1 APPLIC TOPICAL Daily February 15, 2024 12:00am April 29, 2024 1:36pm Start: 02-15-2024 End: 04-29-2024 ketorolac tromethamine 5 mg/ml ophthalmic solution (20 sources) Nonsteroidal Anti-inflammatory Drug, Cyclooxygenase Inhibitor Start: 06-11-2021 End: 06-12-2021 Ketorolac 0.5 % drops Discontinued DROPS June 11, 2021 12:00am June 12, 2021 3:16am Start: 06-11-2021 End: 06-12-2021 Start: 06-11-2021 End: 06-12-2021 Ketorolac Discontinued DROPS SOLUTION/ DROPS June 11, 2021 12:00am [place] 1st, 2021 3:16am lisinopril 20 mg oral tablet (20 sources) Angiotensin Converting Enzyme Inhibitor Start: 03-07-2021 End: 05-07-2024 take 1 tablet by mouth once daily Lisinopril 20 mg tablet Discontinued 20 MG PO Daily June 11, 2021 12:00am May 07, 2024 12:01pm take 2 tablets by mouth in the m orning lisinopril 10 MG tablet Take 20 mg by mouth in the morning. Active magnesium oxide 400 mg oral tablet (9 sources) Start: 02-09-2025 End: 03-12-2025 take 1 tablet by mouth three times daily Magnesium Oxide 400 mg (241.3 mg magnesium) tablet Discontinued 400 MG PO Three times daily February 09, 2025 12:00am March 12, 2025 3:58pm meloxicam 15 mg oral tablet (12 sources) Nonsteroidal Anti-inflammatory Drug Start: 08-25-2021 take 1 tablet by mouth every twenty-four hours Mobic 15 MG 1 tablet Orally Once a day for 30 day(s) Aug, Not-Taking metoprolol tartrate 100 mg oral tablet (20 sources) beta-Adrenergic Khadijah Start: 08-12-2024 End: [...] bedtime. 06/07/2024 Active Start: 05-27-2024 End: 08-12-2024 Start: 02-19-2024 End: 10-20-2024 Metoprolol Tartrate 100 mg t [...] oral tablet (20 sources) Nitroimidazole Antimicrobial Start: 01-14-2025 End: 02-09-2025 take 1 tablet by mouth three times daily Metronidazole 500 mg tablet Discontinued 0 .ROUTE .COMPLEX January 14, 2025 11:27am February 09, 2025 2:08pm TAKE 1 TABLET BY MOUTH THREE TIMES [...] tablet by joesph th every eight hours nitrofurantoin, macrocrystals 100 mg oral capsule (4 sources) Nitrofuran Antibacterial Start: 03-24-2025 End: 04-21-2025 take 1 capsule by mouth twice daily at mealtime Nitrofurantoin Macrocrystal 100 mg capsule Discontinued 100 MG PO Twice daily March 24, 2025 12:00am April 21, 2025 2:19pm must administer with a meal/food nystatin 100 unt/mg topical powder (20 sources) Polyene Antifungal Start: 02-19-2025 End: 03-12-2025 Nystatin 100,000 unit/gram powder Discontinued TOPICAL February 19, 2025 12:00am March 12, 2025 3:58pm Start: 04-29-2024 End: 06-05-2024 take 1 mL [...] 2024 10:36am Start: 01-17-2024 End: 07-16-2024 Nystatin 187477 UNIT/GM 1 application Externally Twice a day for 10 days Active Nystatin 234110 UNIT/GM 1 application Externally Twice a day for 10 days Active nystatin 037367 unt/ml / triamcinolone acetonide 1 mg/ml topical cream (16 sources) Polyene Antifungal, Corticosteroid Start: 07-07-2024 End: 11-03-2024 Nystatin-Triamcinolone 100,000-0.1 unit/g-% cream Discontinued 1 APPLIC TOPICAL Twice daily 15 July 07, 2024 12:00am November 03, 2024 12:41pm Start: 07-07-2024 End: 11-03-2024 Nystatin 100,000 unit/mL suspension (7 sources) Start: 04-29-2024 End: 06-05-2024 take 1 [...] June 05, 2024 11:06am swish and swallow [place] 7-Uaj-Lla-Fish Oil (Fish Oil) 1,000 mg (120 mg-180 mg) capsule (19 sources) Start: 01-17-2024 End: 04-03-2024 take 1 capsule by mouth once daily [place] 7-Wug-Dvd-Fish Oil (Fish Oil) 1,000 mg (120 mg-180 mg) capsule Discontinued 1 CAP PO Daily January 17, 2024 12:00am April 03, 2024 10:49am Start: 01-17-2024 End: 04-03-2024 take 1 capsule by mouth once daily [place] 8-Fej-Rjy-Fish Oil (Fish Oil) 1,000 mg (120 mg-180 mg) capsule Discontinued 1 CAP PO Daily January 17, 2024 1:00am April 03, 2024 11:49am Start: 01-17-2024 take 1 capsule by mo [facility] once daily [place] 1-Ojw-Fed-Fish Oil (Fish Oil) 1,000 mg (120 mg-180 mg) capsule Active 1 CAP PO Daily January 17, 2024 1:00am 24 hr oxybutynin chloride 10 mg extended release oral tablet (20 sources) Cholinergic Muscarinic Antagonist Start: 02-15-2024 End: 06-05-2024 take 1 tablet by mouth once daily Oxybutynin Chloride 10 mg tablet extended release 24hr Discontinued 10 MG PO Daily February 15, 2024 12:00am June 05, 2024 12:07pm microencapsulated potassium chloride 10 meq extended release oral tablet (9 sources) Start: 02-09-2025 End: 02-19-2025 take 2 tablets by mouth twice daily Potassium Chloride 10 mEq tablet,ER particles/crystals Discontinued 20 MEQ PO Twice daily February 09, 2025 12:00am February 19, 2025 9:03am selenomethionine 0.2 mg oral tablet (20 sources) Start: 01-17-2024 End: 04-03-2024 take 1 tablet by mouth once daily Selenomethionine 200 mcg tablet Discontinued 200 MCG PO Daily January 17, 2024 1:00am April 03, 2024 11:51am sodium chloride 0.111 meq/ml nasal spray (12 sources) Start: 10-25-2024 End: 11-03-2024 Sodium Chloride (Nasal [place] (Sodium Chloride)) 0.65 % aerosol,spray Discontinued 1 [...] oral tablet (20 sources) Aluminum Complex Start: 02-19-2025 End: 03-05-2025 take 1 tablet by mouth once before mealtime Sucralfate 1 gram tablet Discontinued 1 GM PO 3x/Day before meals February 19, 2025 12:00am March 05, 2025 9:39am Start: 02-19-2025 End: 03-05-2025 Start: 01-14-2025 End: 02-09-2025 take 1 tablet by mouth once before mealtime Sucralfate (Carafate) 1 gram tablet Discontinued 1 GM PO 3x/Day before meals January 14, 2025 1:00am February 09, 2025 2:53pm Start: 01-14-2025 End: 02-09-2025 Start: 01-17-2024 End: 04-03-2024 take 1 tablet [...] venlafaxine 37.5 mg extended release oral capsule (20 sources) Serotonin and Norepinephrine Reuptake Inhibitor Start: 06-11-2021 End: 01-17-2024 take 1 capsule by mouth once daily Venlafaxine 37.5 mg capsule,extended release 24hr Discontinued 37.5 MG PO Daily June 11, 2021 12:00am January 17, 2024 5:18pm Problems Active Problems Problem Classification Problem Date Documented Date Episodic/Chronic Abdominal pain (14 sources) Epigastric pain; Translations: [Indigestion] 08-06-2022 Episodic Acquired foot deformities (12 sources) Acquired hammer toe of right foot; Translations: [Other hammer toe(s) (acquired), right foot] Onset: 4 07-03-2024 Chronic Allergic reactions (4 sources) Contact dermatitis; Translations: [Unspecified contact dermatitis, unspecified cause] 04-16-2025 Episodic Anxiety disorders (20 sources) Anxiety; Translations: [Anxiety disorder, unspecified] Onset: 4 01-30-2024 Chronic Cardiac dysrhythmias (20 sources) Atrial fibrillation; Translations: [Paroxysmal atrial fibrillation] Onset: 2 07-27-2022 Chronic Chronic kidney disease (20 sources) Chronic kidney disease stage 3; Translations: [Chronic kidney disease, unspecified] Onset: 3 Resolved: 4 07-27-2022 Chronic Chronic kidney disease (3 sources) Chronic kidney disease; Translations: [Chronic kidney disease, stage 3 unspecified] Onset: 3 Chronic obstructive pulmonary disease and bronchiectasis (1 source) Bronchitis, not specified as acute or chronic Episodic Conditions associated with dizziness or vertigo (6 sources) Dizziness; Translations: [Dizziness and giddiness] Onset: 5 03-12-2025 Episodic Congestive heart failure; nonhypertensive (20 sources) Acute on chronic diastolic heart failure; Translations: [Acute on chronic diastolic (congestive) heart failure] Onset: 3 Chronic Coronary atherosclerosis and other heart disease (20 sources) Coronary arteriosclerosis; Translations: [Atherosclerotic heart disease of [place] coronary artery without angina pectoris] Onset: 2 [...] 2 07-27-2022 Chronic Diabetes mellitus without complication (20 sources) Hyperglycemia; Translations: [Hyperglycemia, unspecified] 06-12-2021 Episodic [...] 2 07-27-2022 Chronic Fluid and electrolyte disorders (20 sources) Dehydration; Translations: [Hypokalemia] Onset: 3 Episodic [...] eyelid] Onset: 4 01-18-2024 Episodic Intestinal infection (20 sources) Enterocolitis due to Clostridium difficile, not [...] sources) Long-term current use of insulin; 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] Onset: 4 Resolved: 4 01-17-2024 Episodic Other aftercare (1 source) Other oysterman (current) drug therapy; Translations: [OTH MORTGAGE MANAGER CURRENT DRUG THERAPY] Onset: 3 Episodic Other aftercare (1 source) 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; Translations: [HALFWAY CURRNT [...] UNS] Onset: 3 Chronic Other circulatory disease (12 sources) Elevated blood pressure; Translations: [Elevated blood-pressure reading, without diagnosis of hypertension] 11-02-2024 Episodic Other diseases of kidney and ureters (20 sources) Secondary hyperparathyroidism; Translations: [Secondary hyperparathyroidism of renal origin] Onset: 4 01-17-2024 Chronic Other diseases of kidney and ureters (20 sources) Secondary hyperparathyroidism of renal origin; Translations: [Secondary hyperparathyroidism (of renal origin)] 03-25-2024 Chronic Other diseases of veins and lymphatics (20 sources) Lymphedema; Translations: [Lymphedema, not elsewhere classified] Onset: 4 01-17-2024 Chronic Other diseases of veins and lymphatics (12 sources) Lymphedema of left upper limb; Translations: [Lymphedema, not elsewhere classified] Onset: 2 07-03-2024 Chronic Other eye disorders (20 sources) Chalazion; Translations: [Chalazion right eye, unspecified eyelid] 01-18-2024 Episodic Other eye disorders (3 sources) Chalazion right eye, unspecified eyelid; Translations: [Chalazion] 01-18-2024 Episodic Other eye disorders (13 sources) Chalazion of right eyelid; Translations: [Chalazion right eye, unspecified eyelid] Onset: 4 07-03-2024 Episodic Other gastrointestinal disorders (7 sources) Irritable bowel syndrome; Translations: [Irritable bowel syndrome without diarrhea] 03-10-2025 Chronic Other gastrointestinal disorders (5 sources) Irritable bowel syndrome without diarrhea; Translations: [Irritable bowel syndrome] 03-10-2025 Chronic Other gastrointestinal disorders (20 sources) Incontinence of feces; Translations: [Full incontinence of feces] Episodic Other gastrointestinal disorders (20 sources) Constipation; Translations: [Constipation, unspecified] Episodic Other gastrointestinal disorders (20 sources) Diarrhea; Translations: [Diarrhea, unspecified] 02-09-2025 Episodic Other gastrointestinal disorders (19 sources) Diarrhea, unspecified; Translations: [Diarrhea] Onset: 2 Episodic Other gastrointestinal disorders (20 sources) Swollen abdomen; Translations: [Generalized intra-abdominal and pelvic swelling, mass and lump] Onset: 4 05-07-2024 Episodic Other gastrointestinal disorders (20 sources) Generalized intra-abdominal and pelvic swelling, mass and lump; Translations: [Abdominal or pelvic swelling, mass, or lump, generalized] 05-07-2024 Episodic Other gastrointestinal disorders (12 sources) Abdominal bloating; Translations: [Abdominal distension (gaseous)] 12-10-2024 Episodic Other gastrointestinal disorders (13 sources) Abdominal distension (gaseous); Translations: [Flatulence, eructation, and gas pain] 12-09-2024 Episodic Other hereditary and degenerative nervous system conditions (20 sources) Essential tremor; Translations: [Essential tremor] Onset: 4 07-08-2024 Chronic Other hereditary and degenerative nervous system conditions (7 sources) Essential tremor; Translations: [Essential and other specified forms of tremor] 12-26-2024 Chronic Other inflammatory condition of skin (12 sources) Psoriasis; Translations: [Psoriasis, unspecified] Onset: 2 07-03-2024 Chronic Other inflammatory condition of skin (11 sources) Seborrheic dermatitis of scalp; Translations: [Seborrhea capitis] 01-06-2025 Episodic Other inflammatory condition of skin (7 sources) Seborrhea capitis; Translations: [Other seborrheic dermatitis] [...] nutritional; endocrine; and metabolic disorders (4 sources) Severe obesity; Translations: [Class 3 severe obesity with body mass index (BMI) of 40.0 to 44.9 in adult] 04-16-2025 Chronic Other nutritional; endocrine; and metabolic disorders (20 sources) Loss of appetite; Translations: [Anorexia] Episodic Other skin disorders (20 sources) Localized swelling, mass and lump, right [...] source) Other amnesia Episodic Residual codes; unclassified (12 sources) Delirium; Translations: [Disorientation, unspecified] 10-28-2024 Episodic [...] [CONTACT W/AND (SUSP) EXPOS COVID-19] Onset: 3 Urinary tract infections (20 sources) Urinary tract infectious disease; Translations: [Urinary tract infection, site not specified] Onset: 4 Resolved: 4 05-07-2024 Episodic Viral infection (12 sources) Disease caused by 2019-nCoV; Translations: [COVID-19] 10-25-2024 Episodic Past or Other Problems Problem Classification Problem Date Documented Da te Episodic/Chronic Acute and unspecified renal failure (20 sources) Acute kidney failure, unspecified; Translations: [Acute renal failure syndrome] Onset: 4 Episodic Cancer of breast (18 sources) History of malignant neoplasm of breast; Translations: [Personal history of malignant neoplasm of breast] Onset: 2 07-27-2022 Episodic Cardiac dysrhythmias (20 sources) Bradycardia; Translations: [Bradycardia, unspecified] Onset: 4 10-20-2024 Episodic Malaise and fatigue (20 sources) Weakness; Translations: [Asthenia] Onset: 4 Episodic Noninfectious gastroenteritis (20 sources) Chronic diarrhea; Translations: [Noninfective gastroenteritis and colitis, unspecified] Onset: 3 07-27-2022 Episodic Other aftercare (5 sources) senior care (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 insulin; Translations: [HALFWAY CURRENT USE OF INSULIN] Onset: 3 Episodic Other circulatory disease (17 sources) Carotid [...] (chronic) (peripheral)] Onset: 4 07-03-2024 Episodic Other lower respiratory [...] EDEMA] Onset: 2 Episodic Residual codes; unclassified (2 sources) Disorientation, unspecified; Translations: [Other alteration of consciousness] Onset: 4 10-20-2024 Episodic Residual codes; unclassified (1 source) Other specified postprocedural states; Translations: [Other specified postprocedural states] Onset: 4 Episodic Results Test Name Value Interpretation Reference Range Facility Basophils Auto (Bld) [#/Vol] Ordered By: Cheng Aviles on 05-11-2025 Basophils (Bld) [#/Vol] 0.1 10 3/uL 0.0-0.1 [facility] Basophils/100 WBC Auto (Bld) Ordered By: Cheng Aviles on 05-11-2025 Basophils/100 WBC (Bld) 1.2 % 0.2-2.0 [facility] Eosinophils/100 WBC Auto (Bl d)Ordered By: Cheng Aviles on 05-11-2025 Eosinophils/100 WBC (Bld) 2.7 % 0.9-7.0 [facility] Erythrocyte distribution wid th Auto (RBC) [Ratio]Ordered By: Cheng Aviles on 05-11-2025 Erythrocyte distribution width (RBC) [Ratio] 15.7 % High 11.0-15.0 [facility] Estimated glomerular filtrat ion rate (GFR) non- AmericanOrdered By: Rica Kaplan on 05-11-2025 GFR/1.73 sq M.predicted among non-blacks MDRD (S/P/Bld) [Vol rate/Area] 36 mL/min/{1.73_m2} Low >=60 mL/min/1.[address] [facility] Hematocrit Auto (Bld) [Volum e fraction]Ordered By: Cheng Aviles on 05-11-2025 Hematocrit (Bld) [Volume fraction] 34.2 % Low 36.0-48.0 [facility] Hemoglobin [Mass/volume] in BloodOrdered By: Cheng Aviles on 05-11-2025 Hemoglobin (Bld) [Mass/Vol] 10.9 g/dL Low 12.0-16.0 [facility] Laboratory - Chemistry and C hemistry - challengeOrdered By: Rica Kaplan on 05-11-2025 Calcium [Mass/Vol] 8.6 mg/dL 8.5-10.1 [facility] Chloride [Moles/Vol] 107 mmol/L 98-107 [facility] CO2 [Moles/Vol] 27.7 mmol/L 21.0-32.0 [facility] Creatinine [Mass/Vol] 1.40 mg/dL High 0.55-1.02 [facility] GFR/1.73 sq M.predicted MDRD (S/P/Bld) [Vol rate/Area] 44 mL/min/{1.73_m2} Low >=60 mL/min/1.[address] [facility] Glucose [Mass/Vol] 93 mg/dL 74-106 [facility] Potassium [Moles/Vol] 4.2 mmol/L 3.5-5.1 [facility] Sodium [Moles/Vol] 144 mmol/L 136-145 [facility] Urea nitrogen [Mass/Vol] 34.0 mg/dL High 7.0-18.0 [facility] Urea nitrogen/Creatinine [Mass ratio] 24.3 mg/mg [facility] Laboratory - Hematology and Cell countsOrdered By: Cheng Aviles on 05-11-2025 Immature granulocytes/100 WBC (Bld) 0.4 % 0.0-0.5 [facility] Leukocytes [#/volume] correc gali for nucleated erythrocytes in Blood by Automated counOrdered By: Cheng Aviles on 05-11-2025 WBC corrected for nucl RBC Auto (Bld) [#/Vol] 8.5 10 3/uL 4.0-11.0 [facility] Lymphocytes Auto (Bld) [#/Vo l]Ordered By: Cheng Aviles on 05-11-2025 Lymphocytes (Bld) [#/Vol] 1.4 10 3/uL 1.2-3.8 [facility] Lymphocytes/100 WBC Auto (Bl d)Ordered By: Cheng Aviles on 05-11-2025 Lymphocytes/100 WBC (Bld) 16.0 % Low 20.5-60.0 [facility] MCH Auto (RBC) [Entitic mass ]Ordered By: Cheng Aviles on 05-11-2025 MCH (RBC) [Entitic mass] 28.5 pg 26.7-34.0 [facility] MCHC Auto (RBC) [Mass/Vol]Or dered By: Cheng Aviles on 05-11-2025 MCHC (RBC) [Mass/Vol] 31.9 g/dL 29.9-35.2 [facility] MCV Auto (RBC) [Entitic vol] Ordered By: Cheng Aviles on 05-11-2025 MCV (RBC) [Entitic vol] 89.5 fL 81.0-99.0 [facility] Monocytes Auto (Bld) [#/Vol] Ordered By: Cheng Aviles on 05-11-2025 Monocytes (Bld) [#/Vol] 0.6 10 3/uL 0.3-0.8 [facility] Monocytes/100 WBC Auto (Bld) Ordered By: Cheng Aviles on 05-11-2025 Monocytes/100 WBC (Bld) 7.5 % 1.7-12.0 [facility] Neutrophils Auto (Bld) [#/Vo l]Ordered By: Cheng Aviles on 05-11-2025 Neutrophils (Bld) [#/Vol] 6.1 10 3/uL 1.4-6.5 [facility] Neutrophils/100 WBC Auto (Bl d)Ordered By: Cheng Aviles on 05-11-2025 Neutrophils/100 WBC (Bld) 72.2 % 43.0-75.0 [facility] No Panel InformationOrdered By: Cheng Aviles on 05-11-2025 Eosinophils # (Auto) 0.2 10 3/uL 0.0-0.7 [facility] Immature Granulocyte # (Auto) 0.03 10 3/uL 0.00-0.03 [facility] Platelet mean volume Auto (B ld) [Entitic vol]Ordered By: Cheng Aviles on 05-11-2025 Platelet mean volume (Bld) [Entitic vol] 10.0 fL 9.5-13.5 [facility] Platelets Auto (Bld) [#/Vol] Ordered By: Cheng Aviles on 05-11-2025 Platelets (Bld) [#/Vol] 279 10 3/uL 150-450 [facility] RBC Auto (Bld) [#/Vol]Ordere d By: Cheng Aviles on 05-11-2025 RBC (Bld) [#/Vol] 3.82 10 6/uL Low 4.20-5.40 [facility] Serum or plasma anion gap de terminationOrdered By: Rica Kaplan on 05-11-2025 Anion gap [Moles/Vol] 13.5 mmol/L [facility] Telephoneon 05-07-2025 Telephone [id number] Joe Call 1945 F Date Provider Department Center 05/07/2025 Terrell[facility]ell[facility]AN[facility] Family History Problem Relation Age of Onset Heart disease Mother Heart attack Father Coronary artery disease Other Diabetes Other Polycystic kidney disease Other Family Status - Relation Status Age at Mother Father Sister Brother Other [facility] Office Visiton 04-22-2025 Follow-up visit [id number] Joe Call 1945 F Date Provider Department Center 04/22/2025 RICA DEAN [facility] Family History Problem Relation Age of Onset Heart disease Mother Heart attack Father Coronary artery disease Other Diabetes Other Polycystic kidney disease Other Family Status - Relation Status Age at Mother Father Sister Brother Other Level of Service:58547 [place] OFFICE/OUTPATIENT ESTABLISHED HIGH MDM 40 MIN [facility] Alanine aminotransferase [En zymatic activity/volume] in Serum or PlasmaOrdered By: Jorge Calix on 03-12-2025 ALT [Catalytic activity/Vol] Alanine aminotransferase [Enzymatic activity/volume] in Serum or Plasma 7-52 [facility] Albumin [Mass/volume] in Ser um or Plasma by Bromocresol green (BCG) dye binding methoOrdered By: Jorge Calix on 03-12-2025 Albumin BCG dye [Mass/Vol] Albumin [Mass/volume] in Serum or Plasma by Bromocresol green (BCG) dye binding metho Low 3.5-5.7 [facility] Albumin BCG dye [Mass/Vol] 3.0 g/dL Low 3.5-5.7 [facility] Alkaline phosphatase [Enzyma tic activity/volume] in Serum or PlasmaOrdered By: Jorge Calix on 03-12-2025 ALP [Catalytic activity/Vol] Alkaline phosphatase [Enzymatic activity/volume] in Serum or Plasma 34-104 [facility] Appearance of UrineOrdered B y: Jorge Calix on 03-12-2025 Appearance (U) Urine appearance Clear [facility] Aspartate aminotransferase [ Enzymatic activity/volume] in Serum or PlasmaOrdered By: Jorge Calix on 03-12-2025 AST [Catalytic activity/Vol] Aspartate aminotransferase [Enzymatic activity/volume] in Serum or Plasma Low 13-39 [facility] B-Type Natriuretic PeptideOr dered By: Jorge Calix on 03-12-2025 Natriuretic peptide B (Bld) [Mass/Vol] 773.0 pg/mL High 5-100 [facility] Comment on above: Result Comment: PERF ORMED BY: [place] [address] PATHOLOGIST BUSINESS APPLICATIONS DEVELOPER MAY HYDE M.D. Performed By: #### P T, CK, BNP, CBC, BMP, HEPATIC, MG, HS TROP #### [address] Bacteria [Presence] in Urine by AutomatedOrdered By: Jorge Calix on 03-12-2025 Bacteria Auto Ql (U) Bacteria [Presence] in Urine by Automated High None Seen [facility] Bacteria Auto Ql (U) 2+ [HPF] High None Seen [facility] Basic Metabolic PanelOrdered By: Jorge Calix on 03-12-2025 Anion gap [Moles/Vol] 12.0 mmol/L 6.0-15.0 [facility] Comment on above: Performed By: #### P T, CK, BNP, CBC, BMP, HEPATIC, MG, HS TROP #### [facility] [address] [place] [address] Calcium [Mass/Vol] 8.3 mg/dL Low 8.6-10.3 [facility] Comment on above: Performed By: #### P T, CK, BNP, CBC, BMP, HEPATIC, MG, HS TROP #### [facility] [address] [place] [address] [place] Chloride [Moles/Vol] 89 mmol/L Low 98-107 [facility] Comment on above: Performed By: #### P T, CK, BNP, CBC, BMP, HEPATIC, MG, HS TROP #### [facility] [address] [place] [address] [place] CO2 [Moles/Vol] 37.0 mmol/L High 21.0-31.0 [facility] Comment on above: Performed By: #### P T, CK, BNP, CBC, BMP, HEPATIC, MG, HS TROP #### [facility] [address] Creatinine [Mass/Vol] 1.66 mg/dL High 0.60-1.20 [facility] Comment on above: Performed By: #### P T, CK, BNP, CBC, BMP, HEPATIC, MG, HS TROP #### [facility] [address] Glucose [Mass/Vol] 520 mg/dL Critically high 70-100 [facility] Comment on above: Result Comment: Crit ical Result Called to and read back by: MIRELA WALSH at: 03/12/2025 16:29:08 by:LFM Random Glucose Reference Range is dependent on time and content of last meal. Glucose of more than 200 mg/dL in a nonstressed, ambulatory subject supports the diagnosis of Diabetes Mellitus. ADA recommended reference range Performed By: #### P T, CK, BNP, CBC, BMP, HEPATIC, MG, HS TROP #### [facility] [address] Critical Result Call ed to and read back by: MIRELA WALSH at: 03/12/2025 16:29:08 by:LFMADA recommended reference rangeRandom Glucose Reference Range is dependent on time and content of last meal. Glucose of more than 200 mg/dL in a nonstressed, ambulatory subject supports the diagnosis of Diabetes Mellitus. Potassium [Moles/Vol] 4.0 mmol/L 3.5-5.1 [facility] Comment on above: Performed By: #### P T, CK, BNP, CBC, BMP, HEPATIC, MG, HS TROP #### [facility] [address] Sodium [Moles/Vol] 134 mmol/L Low 136-145 [facility] Comment on above: Performed By: #### P T, CK, BNP, CBC, BMP, HEPATIC, MG, HS TROP #### [facility] [address] Urea nitrogen [Mass/Vol] 41 mg/dL High 7-25 [facility] Comment on above: Performed By: #### P T, CK, BNP, CBC, BMP, HEPATIC, MG, HS TROP #### [facility] [address] Basic Metabolic Panelon 050 Creatinine Clr [facility] Pharmacy 35.31 Normal [facility] Comment on above: Performed By: #### P T, CK, BNP, CBC, BMP, HEPATIC, MG, HS TROP #### [facility] [address] Estimated GFR 31.389 mL/Min Normal [facility] Comment on above: Performed By: #### P T, CK, BNP, CBC, BMP, HEPATIC, MG, HS TROP #### [facility] [address] Basophils Auto (Bld) [#/Vol] Ordered By: Jorge Calix on 03-12-2025 Basophils (Bld) [#/Vol] Automated basophil count 0.0-0.2 [facility] Basophils/100 WBC Auto (Bld) Ordered By: Jorge Calix on 03-12-2025 Basophils/100 WBC (Bld) Automated basophil % . [facility] Bilirubin Test strip Ql (U)O rdered By: Jorge Calix on 03-12-2025 Bilirubin Ql (U) Bilirubin.total [Presence] in Urine by Test strip Negative [facility] Bilirubin Ql (U) Negative Negative [facility] Bilirubin.direct [Mass/volum e] in Serum or PlasmaOrdered By: Jorge Calix on 03-12-2025 Bilirubin.direct [Mass/Vol] Bilirubin.direct [Mass/volume] in Serum or Plasma 0.03-0.18 [facility] Bilirubin.direct [Mass/Vol] 0.10 mg/dL 0.03-0.18 [facility] Bilirubin.total [Mass/volume ] in Serum or PlasmaOrdered By: Jorge Calix on 03-12-2025 Bilirubin [Mass/Vol] Bilirubin.total [Mass/volume] in Serum or Plasma 0.3-1.0 [facility] Calcium [Mass/volume] in Ser um or PlasmaOrdered By: Jorge Calix on 03-12-2025 Calcium [Mass/Vol] Calcium [Mass/volume ] in Serum or Plasma Low 8.6-10.3 [facility] Carbon dioxide, total [Moles /volume] in Serum or PlasmaOrdered By: Jorge Calix on 03-12-2025 CO2 [Moles/Vol] Carbon dioxide, tota l [Moles/volume] in Serum or Plasma High 21.0-31.0 [facility] Chloride [Moles/volume] in S oizel or PlasmaOrdered By: Jorge Calix on 03-12-2025 Chloride [Moles/Vol] Chloride [Moles/vol ume] in Serum or Plasma Low 98-107 [facility] Color Auto (U)Ordered By: Amilcar Calix on 03-12-2025 Color (U) Color of Urine by Auto Yellow [facility] Complete Blood Count Auto Di ffOrdered By: Jorge Calix on 03-12-2025 Basophils (Bld) [#/Vol] 0.1 10*3/uL 0.0-0.2 [facility] Comment on above: Result Comment: PERF ORMED BY: [place] [address] PATHOLOGIST BUSINESS APPLICATIONS DEVELOPER MAY HYDE M.D. Performed By: #### P T, CK, BNP, CBC, BMP, HEPATIC, MG, HS TROP #### [facility] [address] [place] [address] Basophils/100 WBC (Bld) 0.8 % . [facility] Comment on above: Performed By: #### P T, CK, BNP, CBC, BMP, HEPATIC, MG, HS TROP #### [facility] [address] [place] [address] Eosinophils (Bld) [#/Vol] 0.1 10*3/uL 0.0-0.45 [facility] Comment on above: Performed By: #### P T, CK, BNP, CBC, BMP, HEPATIC, MG, HS TROP #### [address] Eosinophils/100 WBC (Bld) 1.0 % . [facility] Comment on above: Performed By: #### P T, CK, BNP, CBC, BMP, HEPATIC, MG, HS TROP #### [address] Erythrocyte distribution width (RBC) [Ratio] 14.5 % 11.9-15.3 [facility] Comment on above: Performed By: #### P T, CK, BNP, CBC, BMP, HEPATIC, MG, HS TROP #### [address] Hematocrit (Bld) [Volume fraction] 38.3 % 34.0-46.4 [facility] Comment on above: Performed By: #### P T, CK, BNP, CBC, BMP, HEPATIC, MG, HS TROP #### [address] Hemoglobin (Bld) [Mass/Vol] 12.8 g/dL 11.8-15.4 [facility] Comment on above: Performed By: #### P T, CK, BNP, CBC, BMP, HEPATIC, MG, HS TROP #### [address] Lymphocytes (Bld) [#/Vol] 1.3 10*3/uL 1.00-4.8 [facility] Comment on above: Performed By: #### P T, CK, BNP, CBC, BMP, HEPATIC, MG, HS TROP #### [address] Lymphocytes/100 WBC (Bld) 14.2 % . [facility] Comment on above: Performed By: #### P T, CK, BNP, CBC, BMP, HEPATIC, MG, HS TROP #### [address] MCH (RBC) [Entitic mass] 29.5 pg 24.7-34.3 [facility] Comment on above: Performed By: #### P T, CK, BNP, CBC, BMP, HEPATIC, MG, HS TROP #### [facility] [address] MCV (RBC) [Entitic vol] 88.4 fL 80-100 [facility] Comment on above: Performed By: #### P T, CK, BNP, CBC, BMP, HEPATIC, MG, HS TROP #### [facility] [address] Monocytes (Bld) [#/Vol] 0.5 10*3/uL 0.0-0.8 [facility] Comment on above: Performed By: #### P T, CK, BNP, CBC, BMP, HEPATIC, MG, HS TROP #### [address] Monocytes/100 WBC (Bld) 5.9 % . [facility] Comment on above: Performed By: #### P T, CK, BNP, CBC, BMP, HEPATIC, MG, HS TROP #### [address] Neutrophils (Bld) [#/Vol] 7.0 10*3/uL 1.8-7.7 [facility] Comment on above: Performed By: #### P T, CK, BNP, CBC, BMP, HEPATIC, MG, HS TROP #### [address] Neutrophils/100 WBC (Bld) 78.1 % . [facility] Comment on above: Performed By: #### P T, CK, BNP, CBC, BMP, HEPATIC, MG, HS TROP #### [address] Platelet mean volume (Bld) [Entitic vol] 9.6 fL 6.3-10.7 [facility] Comment on above: Performed By: #### P T, CK, BNP, CBC, BMP, HEPATIC, MG, HS TROP #### [address] Platelets (Bld) [#/Vol] 194 10*3/uL 150-450 [facility] Comment on above: Performed By: #### P T, CK, BNP, CBC, BMP, HEPATIC, MG, HS TROP #### [address] RBC (Bld) [#/Vol] 4.33 10*6/uL 3.60-5.00 [facility] Comment on above: Performed By: #### P T, CK, BNP, CBC, BMP, HEPATIC, MG, HS TROP #### [address] WBC (Bld) [#/Vol] 9.0 10*3/uL 3.8-11.6 [facility] Comment on above: Performed By: #### P T, CK, BNP, CBC, BMP, HEPATIC, MG, HS TROP #### [address] Complete Blood Count Auto Di ffon 03-12-2025 Mean Corpuscular HGB Conc 33.3 g/dL Normal 32.0-35.0 [facility] Comment on above: Performed By: #### P T, CK, BNP, CBC, BMP, HEPATIC, MG, HS TROP #### [address] Monocytes/100 WBC (Bld) 18.66 % Normal 0.00-20.00 [facility] Comment on above: Performed By: #### P T, CK, BNP, CBC, BMP, HEPATIC, MG, HS TROP #### [address] NRBC% 0.1 /100{WBC} Normal 0-0.5 [facility] Comment on above: Performed By: #### P T, CK, BNP, CBC, BMP, HEPATIC, MG, HS TROP #### [address] Creatine KinaseOrdered By: Chino Calix on 03-12-2025 CK [Catalytic activity/Vol] 57 U/L 30-223 [facility] Comment on above: Performed By: #### P T, CK, BNP, CBC, BMP, HEPATIC, MG, HS TROP #### [facility] [address] Creatine kinase [Enzymatic a ctivity/volume] in Serum or PlasmaOrdered By: Jorge Calix on 03-12-2025 CK [Catalytic activity/Vol] Creatine kinase [Enzymatic activity/volume] in Serum or Plasma 30-223 [facility] Creatinine [Mass/volume] in Serum or PlasmaOrdered By: Jorge Calix on 03-12-2025 Creatinine [Mass/Vol] Creatinine [Mass/v olume] in Serum or Plasma High 0.60-1.20 [facility] Dipstick and MicroscopicOrde red By: Jorge Calix on 03-12-2025 Appearance (U) Clear Clear [facility] Comment on above: Order Comment: Name Collection Type:: Other Performed By: #### P T, CK, BNP, CBC, BMP, HEPATIC, MG, HS TROP #### [facility] [address] [place] [address] Color (U) Light-Yellow Yellow [facility] Comment on above: Order Comment: Name Collection Type:: Other Performed By: #### P T, CK, BNP, CBC, BMP, HEPATIC, MG, HS TROP #### [facility] [address] [place] [address] Ketones Ql (U) Negative Negative [facility] Comment on above: Order Comment: Name Collection Type:: Other Performed By: #### P T, CK, BNP, CBC, BMP, HEPATIC, MG, HS TROP #### [facility] [address] [place] [address] Leukocyte esterase Test strip Ql (U) Negative Negative [facility] Comment on above: Order Comment: Name Collection Type:: Other Performed By: #### P T, CK, BNP, CBC, BMP, HEPATIC, MG, HS TROP #### [address] pH (U) 7.0 [pH] 5.0-9.0 [facility] Comment on above: Order Comment: Name Collection Type:: Other Performed By: #### P T, CK, BNP, CBC, BMP, HEPATIC, MG, HS TROP #### [facility] [address] Protein (U) [Mass/Vol] 200 mg/dL High Negative [facility] Comment on above: Order Comment: Name Collection Type:: Other Performed By: #### P T, CK, BNP, CBC, BMP, HEPATIC, MG, HS TROP #### [address] Dipstick and Microscopicon 0 03-12-2025 Bacteria,Urine 2+ High None Seen [facility] Comment on above: Order Comment: Name Collection Type:: Other Performed By: #### P T, CK, BNP, CBC, BMP, HEPATIC, MG, HS TROP #### [address] Bilirubin,Urine Negative Normal Negative [facility] Comment on above: Order Comment: Name Collection Type:: Other Performed By: #### P T, CK, BNP, CBC, BMP, HEPATIC, MG, HS TROP #### [address] Glucose Ql (U) >= High Normal [facility] Comment on above: Order Comment: Name Collection Type:: Other Performed By: #### P T, CK, BNP, CBC, BMP, HEPATIC, MG, HS TROP #### [address] Hyaline Casts,Urine 0-8 Normal 0-8 [facility] Comment on above: Order Comment: Name Collection Type:: Other Result Comment: PERF ORMED BY: [place] [address] PATHOLOGIST BUSINESS APPLICATIONS DEVELOPER MAY HYDE M.D. Performed By: #### P T, CK, BNP, CBC, BMP, HEPATIC, MG, HS TROP #### [address] Nitrite,Urine Negative Normal Negative [facility] Comment on above: Order Comment: Name Collection Type:: Other Performed By: #### P T, CK, BNP, CBC, BMP, HEPATIC, MG, HS TROP #### [address] Occult Blood,Urine Negative Normal Negative [facility] Comment on above: Order Comment: Name Collection Type:: Other Result Comment: PERF ORMED BY: [place] [address] PATHOLOGIST BUSINESS APPLICATIONS DEVELOPER MAY HYDE M.D. Performed By: #### P T, CK, BNP, CBC, BMP, HEPATIC, MG, HS TROP #### [address] RBC,Urine 1-2 Normal 0-4 [facility] Comment on above: Order Comment: Name Collection Type:: Other Performed By: #### P T, CK, BNP, CBC, BMP, HEPATIC, MG, HS TROP #### [address] Specificy [place],Urine 1.012 Normal 1.001-1.030 [facility] Comment on above: Order Comment: Name Collection Type:: Other Performed By: #### P T, CK, BNP, CBC, BMP, HEPATIC, MG, HS TROP #### [address] Squamous Epithelial Cell,Urine 1-2 Normal 0-2 [facility] Comment on above: Order Comment: Name Collection Type:: Other Performed By: #### P T, CK, BNP, CBC, BMP, HEPATIC, MG, HS TROP #### [address] Urobilinogen,Urine Normal Normal Normal [facility] Comment on above: Order Comment: Name Collection Type:: Other Performed By: #### P T, CK, BNP, CBC, BMP, HEPATIC, MG, HS TROP #### [address] WBC,Urine 3-4 Normal 0-4 [facility] Comment on above: Order Comment: Name Collection Type:: Other Performed By: #### P T, CK, BNP, CBC, BMP, HEPATIC, MG, HS TROP #### [facility] [address] [place] [id number] [facility] ECG 12 lead ECGon 03-12-2025 ECG 12 lead ECG [facility] [place] [address] [place] [address] Electrocardiograph Report Signed Patient: Joe Call MR#: [id number] 0 : 1945 Acct:[id number] Age/Sex: 79 / F ADM Date: 03/12/25 Loc: ER Room: Type: [facility] ER Attending Dr: Ordering Provider: Jorge Calix DO Date of Service: 03/12/2512/06/1328 ECG/ECG 12 lead ECG: Recheck/Abnormal Lab/Rx Copies to: Test Reason : Blood Pressure : 127/72 mmHG Vent. Rate : 61 BPM Atrial Rate : 61 BPM P-R Int : 156 ms QRS Dur : 106 ms QT Int : 448 ms P-R-T Axes : 58 51 59 degrees QTcB Int : 450 ms Normal sinus rhythm Cannot rule out Anterior infarct , age undetermined Abnormal ECG When compared with ECG of 25-Oct-2024 05:58, Vent. rate has decreased by 30 bpm Confirmed by Jorge Calix DO ([id number]) on 03/12/2025 6:57:40 PM Referred By: Electronically Signed By: Jorge Calix DO Transcribed By: MUS Signed By Jorge Calix DO 5 0837 Normal [facility] Eosinophils Auto (Bld) [#/Vo l]Ordered By: Jorge Calix on 03-12-2025 Eosinophils (Bld) [#/Vol] Automated eosinophil count 0.0-0.45 [facility] Eosinophils/100 WBC Auto (Bl d)Ordered By: Jorge Calix on 03-12-2025 Eosinophils/100 WBC (Bld) Automated eosinophil % . [facility] Epithelial cells.squamous [# /area] in Urine sediment by Automated countOrdered By: Jorge Calix on 03-12-2025 Epithelial cells.squamous Auto (Urine sed) [#/Area] Epithelial cells.squamous [#/area] in Urine sediment by Automated count 0-2 [facility] Epithelial cells.squamous Auto (Urine sed) [#/Area] 1-2 [HPF] 0-2 [facility] Erythrocyte distribution wid th Auto (RBC) [Ratio]Ordered By: Jorge Calix on 03-12-2025 Erythrocyte distribution width (RBC) [Ratio] Erythrocyte distribution width [Ratio] by Automated count 11.9-15.3 [facility] Erythrocytes [#/area] in Uri ne sediment by Automated countOrdered By: Jorge Calix on 03-12-2025 RBC Auto (Urine sed) [#/Area] Erythrocytes [#/area] in Urine sediment by Automated count 0-4 [facility] RBC Auto (Urine sed) [#/Area] 1-2 [HPF] 0-4 [facility] Globulin Calc (S) [Mass/Vol] Ordered By: Jorge Calix on 03-12-2025 Globulin (S) [Mass/Vol] Serum globulin measurement by calculation (mass/volume) [facility] Glucose Glucometer (BldC) [M ass/Vol]Ordered By: Jorge Calix on 03-12-2025 Glucose [Mass/Vol] Capillary blood gluc ose measurement by glucometer (mass/volume) [facility] Glucose Poct GlucometersOrde red By: Jorge Calix on 03-12-2025 Glucose [Mass/Vol] 364 mg/dL [facility] Comment on above: Result Comment: [place] om Glucose Reference Range is dependent on time and content of last meal. Glucose of more than 200 mg/dL in a nonstressed, ambulatory subject supports the diagnosis of Diabetes Mellitus. PERFORMED BY: [facility] [address] [facility] [place] [address] PATHOLOGIST BUSINESS APPLICATIONS DEVELOPER MAY HYDE M.D. Performed By: #### P T, CK, BNP, CBC, BMP, HEPATIC, MG, HS TROP #### [facility] [address] Random Glucose Refer ence Range is dependent on time and content of last meal. Glucose of more than 200 mg/dL in a nonstressed, ambulatory subject supports the diagnosis of Diabetes Mellitus. Glucose [Mass/volume] in Ser um or PlasmaOrdered By: Jorge Calix on 03-12-2025 Glucose [Mass/Vol] Glucose [Mass/volume ] in Serum or Plasma Critically high 70-100 [facility] Glucose [Mass/volume] in Uri ne by Test stripOrdered By: Jorge Calix on 03-12-2025 Glucose Test strip (U) [Mass/Vol] Glucose [Mass/volume] in Urine by Test strip High Normal [facility] Glucose Test strip (U) [Mass/Vol] >=1000 mg/dL High Normal [facility] Hematocrit Auto (Bld) [Volum e fraction]Ordered By: Jorge Calix on 03-12-2025 Hematocrit (Bld) [Volume fraction] Hematocrit [Volume Fraction] of Blood by Automated count 34.0-46.4 [facility] Hemoglobin Test strip Ql (U) Ordered By: Jorge Calix on 03-12-2025 Hemoglobin Ql (U) Hemoglobin [Presence ] in Urine by Test strip Negative [facility] Hemoglobin Ql (U) Negative Negative [facility] Hemoglobin [Mass/volume] in BloodOrdered By: Jorge Calix on 03-12-2025 Hemoglobin (Bld) [Mass/Vol] Hemoglobin [Mass/volume] in Blood 11.8-15.4 [facility] Hepatic Panelon 03-12-2025 Albumin [Mass/Vol] 3.0 g/dL Low 3.5-5.7 [facility] Comment on above: Performed By: #### P T, CK, BNP, CBC, BMP, HEPATIC, MG, HS TROP #### [facility] [address] Bilirubin,Indirect 0.4 mg/dL Normal [facility] Comment on above: Performed By: #### P T, CK, BNP, CBC, BMP, HEPATIC, MG, HS TROP #### [facility] [address] Bilirubin.indirect [Mass/Vol] 0.10 mg/dL Normal 0.03-0.18 [facility] Comment on above: Performed By: #### P T, CK, BNP, CBC, BMP, HEPATIC, MG, HS TROP #### [facility] [address] Hepatic PanelOrdered By: Pasquale Calix on 03-12-2025 Albumin/Globulin [Mass ratio] 0.8 {ratio} [facility] Comment on above: Performed By: #### P T, CK, BNP, CBC, BMP, HEPATIC, MG, HS TROP #### [address] ALP [Catalytic activity/Vol] 104 U/L 34-104 [facility] Comment on above: Performed By: #### P T, CK, BNP, CBC, BMP, HEPATIC, MG, HS TROP #### [address] ALT [Catalytic activity/Vol] 9 U/L 7-52 [facility] Comment on above: Performed By: #### P T, CK, BNP, CBC, BMP, HEPATIC, MG, HS TROP #### [address] AST [Catalytic activity/Vol] 11 U/L Low 13-39 [facility] Comment on above: Performed By: #### P T, CK, BNP, CBC, BMP, HEPATIC, MG, HS TROP #### [facility] [address] [place] [address] Bilirubin [Mass/Vol] 0.5 mg/dL 0.3-1.0 [facility] Comment on above: Performed By: #### P T, CK, BNP, CBC, BMP, HEPATIC, MG, HS TROP #### [address] Globulin (S) [Mass/Vol] 4.0 g/dL [facility] Comment on above: Performed By: #### P T, CK, BNP, CBC, BMP, HEPATIC, MG, HS TROP #### [address] Protein [Mass/Vol] 7.0 g/dL 6.4-8.9 [facility] Comment on above: Performed By: #### P T, CK, BNP, CBC, BMP, HEPATIC, MG, HS TROP #### [facility] [address] [place] [address] [place] Hyaline casts [#/area] in Ur ine sediment by Automated countOrdered By: Jorge Calix on 03-12-2025 Hyaline casts Auto (Urine sed) [#/Area] Hyaline casts [#/area] in Urine sediment by Automated count 0-8 [facility] Hyaline casts Auto (Urine sed) [#/Area] 0-8 [LPF] 0-8 [facility] INR in Platelet poor plasma by Coagulation assayOrdered By: Jorge Calix on 03-12-2025 INR Coag (PPP) [Relative time] INR in Platelet poor plasma by Coagulation assay [facility] Ketones Test strip Ql (U)Ord ered By: Jorge aClix on 03-12-2025 Ketones Ql (U) Ketones [Presence] i n Urine by Test strip Negative [facility] Leukocyte esterase [Presence ] in Urine by Test stripOrdered By: Jorge Calix on 03-12-2025 Leukocyte esterase Test strip Ql (U) Leukocyte esterase [Presence] in Urine by Test strip Negative [facility] Leukocytes [#/area] in Urine sediment by Automated countOrdered By: Jorge Calix on 03-12-2025 WBC Auto (Urine sed) [#/Area] Leukocytes [#/area] in Urine sediment by Automated count 0-4 [facility] WBC Auto (Urine sed) [#/Area] 3-4 [HPF] 0-4 [facility] Leukocytes [#/volume] correc gali for nucleated erythrocytes in Blood by Automated counOrdered By: Jorge Calix on 03-12-2025 WBC corrected for nucl RBC Auto (Bld) [#/Vol] Leukocytes [#/volume] corrected for nucleated erythrocytes in Blood by Automated coun 3.8-11.6 [facility] WBC corrected for nucl RBC Auto (Bld) [#/Vol] 9.0 10*3/uL 3.8-11.6 [facility] Lymphocytes Auto (Bld) [#/Vo l]Ordered By: Jorge Calix on 03-12-2025 Lymphocytes (Bld) [#/Vol] Lymphocytes [#/volume] in Blood by Automated count 1.00-4.8 [facility] Lymphocytes/100 WBC Auto (Bl d)Ordered By: Jorge Calix on 03-12-2025 Lymphocytes/100 WBC (Bld) Lymphocytes/100 leukocytes in Blood by Automated count . [facility] MCH Auto (RBC) [Entitic mass ]Ordered By: Jorge Calix on 03-12-2025 MCH (RBC) [Entitic mass] MCH [Entitic mass] by Automated count 24.7-34.3 [facility] MCHC Auto (RBC) [Mass/Vol]Or dered By: Jorge Calix on 03-12-2025 MCHC (RBC) [Mass/Vol] MCHC [Mass/volume] by Automated count 32.0-35.0 [facility] MCHC (RBC) [Mass/Vol] 33.3 g/dL 32.0-35.0 [facility] MCV Auto (RBC) [Entitic vol] Ordered By: Jorge Calix on 03-12-2025 MCV (RBC) [Entitic vol] MCV [Entitic volume] by Automated count 80-100 [facility] MagnesiumOrdered By: Jorge tarango on 03-12-2025 Magnesium [Mass/Vol] 1.1 mg/dL Low 1.9-2.7 [facility] Comment on above: Result Comment: PERF ORMED BY: [place] [address] PATHOLOGIST BUSINESS APPLICATIONS DEVELOPER MAY HYDE M.D. Performed By: #### P T, CK, BNP, CBC, BMP, HEPATIC, MG, HS TROP #### [address] Magnesium [Mass/volume] in S oziel or PlasmaOrdered By: Jorge Calix on 03-12-2025 Magnesium [Mass/Vol] Magnesium [Mass/vol ume] in Serum or Plasma Low 1.9-2.7 [facility] Monocyte distribution width [Entitic volume] in Blood by AutomatedOrdered By: Jorge Calix on 03-12-2025 Monocyte distribution width Auto (Bld) [Entitic vol] Monocyte distribution width [Entitic volume] in Blood by Automated 0.00-20.00 [facility] Monocyte distribution width Auto (Bld) [Entitic vol] 18.66 % 0.00-20.00 [facility] Monocytes Auto (Bld) [#/Vol] Ordered By: Jorge Calix on 03-12-2025 Monocytes (Bld) [#/Vol] Automated blood monocyte count 0.0-0.8 [facility] Monocytes/100 WBC Auto (Bld) Ordered By: Jorge Calix on 03-12-2025 Monocytes/100 WBC (Bld) Automated monocyte % . [facility] Natriuretic peptide B [Mass/ Vol]Ordered By: Jorge Calix on 03-12-2025 Natriuretic peptide B (Bld) [Mass/Vol] BNP ser/plas High 5-100 [facility] Neutrophils Auto (Bld) [#/Vo l]Ordered By: Jorge Calix on 03-12-2025 Neutrophils (Bld) [#/Vol] Neutrophils [#/volume] in Blood by Automated count 1.8-7.7 [facility] Neutrophils/100 WBC Auto (Bl d)Ordered By: Jogre Calix on 03-12-2025 Neutrophils/100 WBC (Bld) Automated neutrophil % . [facility] Nitrite Test strip Ql (U)Ord ered By: Jorge Calix on 03-12-2025 Nitrite Ql (U) Nitrite [Presence] i n Urine by Test strip Negative [facility] Nitrite Ql (U) Negative Negative [facility] No Panel InformationOrdered By: Jorge Calix on 03-12-2025 Estimated GFR (CKD-EPI) 31.389 mL/Min [facility] Creatinine Clearance (Chem 35.31 [facility] 31.389 mL/Min [facility] 35.31 [facility] Nucleated erythrocytes [Pres ence] in Blood by Automated countOrdered By: Jorge Calix on 03-12-2025 Nucleated RBC Auto Ql (Bld) Nucleated erythrocytes [Presence] in Blood by Automated count 0-0.5 [facility] Nucleated RBC Auto Ql (Bld) 0.1 /100{WBC} 0-0.5 [facility] Platelet mean volume Auto (B ld) [Entitic vol]Ordered By: Jorge Calix on 03-12-2025 Platelet mean volume (Bld) [Entitic vol] Platelet mean volume [Entitic volume] in Blood by Automated count 6.3-10.7 [facility] Platelets Auto (Bld) [#/Vol] Ordered By: Jorge Calix on 03-12-2025 Platelets (Bld) [#/Vol] Platelets [#/volume] in Blood by Automated count 150-450 [facility] Potassium [Moles/volume] in Serum or PlasmaOrdered By: Jorge Calix on 03-12-2025 Potassium [Moles/Vol] Potassium [Moles/v olume] in Serum or Plasma 3.5-5.1 [facility] Protein Test strip (U) [Mass /Vol]Ordered By: Jorge Calix on 03-12-2025 Protein (U) [Mass/Vol] Protein [Mass/vol ume] in Urine by Test strip High Negative [facility] Protein [Mass/volume] in Ser um or PlasmaOrdered By: Jorge Calix on 03-12-2025 Protein [Mass/Vol] Protein [Mass/volume ] in Serum or Plasma 6.4-8.9 [facility] Prothrombin Time INROrdered By: Jorge Calix on 03-12-2025 INR Coag (PPP) [Relative time] 1.7 {INR} [facility] Comment on above: Result Comment: INR Therapeutic [...] heart valves: 3 - 4.5 PERFORMED BY: [place] [address] PATHOLOGIST BUSINESS APPLICATIONS DEVELOPER MAY HYDE M.D. Performed By: #### P T, CK, BNP, CBC, BMP, HEPATIC, MG, HS TROP #### [address] INR Therapeutic Rang e A) Pre- and Peroperative OAT started two weeks before surgery. NOT HIP SURGERY: 1.5 - 2.5 HIP SURGERY: 2 - 3B) Primary and secondary prevention of venous THROMBOSIS: 2 - 3C) Active venous thrombosis, pulmonary embolismand prevention of recurrent venous thrombosis: 2 - 3D) Prevention of arterial thromboembolismincluding patients with mechanical heart valves: 3 - 4.5 PT Coag (PPP) [Time] 19.3 s High 9.0-12.9 [facility] Comment on above: Result Comment: A he matocrit value greater than 55% may lead to inaccurate results in coagulation testing. Patients having hematocrit values >55% require a special collection tube for coagulation studies. Please contact the laboratory at [phone] for redraw instructions. Performed By: #### P T, CK, BNP, CBC, BMP, HEPATIC, MG, HS TROP #### [facility] [address] A hematocrit value g reater than 55% may lead to inaccurate results in coagulation testing. Patients having hematocrit values >55% require a special collection tube for coagulation studies. Please contact the laboratory at [phone] for redraw instructions. Prothrombin time (PT)Ordered By: Jorge Calix on 03-12-2025 PT Coag (PPP) [Time] Prothrombin time (PT) High 9.0- 12.9 [facility] RBC Auto (Bld) [#/Vol]Ordere d By: Jorge Calix on 03-12-2025 RBC (Bld) [#/Vol] Erythrocytes [#/volu me] in Blood by Automated count 3.60-5.00 [facility] Serum or plasma albumin/glob ulin mass ratioOrdered By: Jorge Calix on 03-12-2025 Albumin/Globulin [Mass ratio] Serum or plasma albumin/globulin mass ratio [facility] Serum or plasma anion gap de terminationOrdered By: Jorge Calix on 03-12-2025 Anion gap [Moles/Vol] Serum or plasma an ion gap determination 6.0-15.0 [facility] Serum or plasma non-glucuron idated bilirubin measurement (mass/volume)Ordered By: Jorge Calix on 03-12-2025 Bilirubin.indirect [Mass/Vol] Serum or plasma non-glucuronidated bilirubin measurement (mass/volume) [facility] Bilirubin.indirect [Mass/Vol] 0.4 mg/dL [facility] Sodium [Moles/volume] in Ser um or PlasmaOrdered By: Jorge Calix on 03-12-2025 Sodium [Moles/Vol] Sodium [Moles/volume ] in Serum or Plasma Low 136-145 [facility] Specific gravity Test strip (U) [Rel density]Ordered By: Jorge Calix on 03-12-2025 Specific gravity (U) [Rel density] Specific gravity of Urine by Test strip 1.001-1.030 [facility] Specific gravity (U) [Rel density] 1.012 1.001-1.030 [facility] Troponin I High Sensitivityo n 03-12-2025 Troponin I High Sensitivity 46 High 0-15 [facility] Comment on above: Result Comment: The Troponin units of report have been changed to meet the Chest Pain Accreditation requirement, element EC5.M1l2. Troponin units are changed from pg/ml to ng/L. Also, the decimal is removed and results are in whole numbers. PERFORMED BY: [place] [address] PATHOLOGIST BUSINESS APPLICATIONS DEVELOPER MAY HYDE M.D. Performed By: #### P T, CK, BNP, CBC, BMP, HEPATIC, MG, HS TROP #### [address] Troponin I.cardiac [Mass/vol ume] in Serum or Plasma by Detection limit <= 0.01 ng/Ordered By: Jorge Calix on 03-12-2025 Troponin I.cardiac DL <= 0.01 ng/mL [Mass/Vol] Troponin I.cardiac [Mass/volume] in Serum or Plasma by Detection limit <= 0.01 ng/ High 0-15 [facility] Troponin I.cardiac [Mass/vol ume] in Serum or Plasma by Detection limit <= 0.01 ng/mLOrdered By: Jorge Calix on 03-12-2025 Troponin I.cardiac DL <= 0.01 ng/mL [Mass/Vol] 46 ng/L High 0-15 [facility] Comment on above: The Troponin units o f report have been changed to meet the Chest Pain Accreditation requirement, element EC5.M1l2. Troponin units are changed from pg/ml to ng/L. Also, the decimal is removed and results are in whole numbers. Urea nitrogen [Mass/volume] in Serum or PlasmaOrdered By: Jorge Calix on 03-12-2025 Urea nitrogen [Mass/Vol] Urea nitrogen [Mass/volume] in Serum or Plasma High 7-25 [facility] Urobilinogen Test strip (U) [Mass/Vol]Ordered By: Jorge Calix on 03-12-2025 Urobilinogen (U) [Mass/Vol] Urobilinogen [Mass/volume] in Urine by Test strip Normal [facility] Urobilinogen (U) [Mass/Vol] Normal mg/dL Normal [facility] WBC Auto (Bld) [#/Vol]Ordere d By: Jorge Calix on 03-12-2025 WBC (Bld) [#/Vol] Leukocytes [#/volume ] in Blood by Automated count 3.8-11.6 [facility] X-ray reportOrdered By: Kirit Langston on 03-12-[address] [facility] Work Phone: XR chest 1V portableon 03-12 XR chest 1V portable [facility] [place] [place] [address] XRay Report Signed Patient: Joe Call MR#: [id number] 0 : 1945 Acct:[id number] Age/Sex: 79 / F ADM Date: 03/12/25 Loc: ER Room: Type: [facility] ER Attending Dr: Copies to: Jorge Calix DO Ordering Provider: Jorge Calix DO Date of Service: 03/12/25 XR/XR [...] Langston M.D. 03/12/2025 3:34 PM Dictation Location: [facility]-- Transcribed By: RAFAEL 03/12/25 153 Dictated By: Vargas Langston MD 03/12/25 153 Signed By: 03/12/25 153 Normal [facility] pH Test strip (U)Ordered By: Jorge Calix on 03-12-2025 pH (U) pH of Urine by Test strip 5.0-9.0 [facility] Cholesterol in LDL Calc [Mas s/Vol]on 03-02-2025 Cholesterol in LDL [Mass/Vol] Cholesterol in LDL [Mass/volume] in Serum or Plasma by calculation [facility] Comment on above: <100 mg/dl [id number] 0-129 mg/dl NEAR OR ABOVE [id number] mg/dl BORDERLINE [id number] mg/dl HIGH>190 mg/dl VERY HIGH Cholesterol in LDL [Mass/Vol] 55.6 mg/dL [facility] Comment on above: <100 mg/dl [id number] 0-129 mg/dl NEAR OR ABOVE [id number] mg/dl BORDERLINE [id number] mg/dl HIGH>190 mg/dl VERY HIGH Cholesterol in VLDL Calc [Ma ss/Vol]on 03-02-2025 Cholesterol in VLDL [Mass/Vol] Cholesterol in VLDL [Mass/volume] in Serum or Plasma by calculation [facility] Cholesterol in VLDL [Mass/Vol] 24.4 mg/dL [facility] Erythrocyte distribution wid th Auto (RBC) [Ratio]on 03-02-2025 Erythrocyte distribution width (RBC) [Ratio] Erythrocyte distribution width [Ratio] by Automated count 11.0-15.0 [facility] Erythrocyte distribution width (RBC) [Ratio] 13.4 % 11.0-15.0 [facility] Estimated glomerular filtrat ion rate (GFR) non- Americanon 03-02-2025 GFR/1.73 sq M.predicted among non-blacks MDRD (S/P/Bld) [Vol rate/Area] Estimated glomerular filtration rate (GFR) non- Low >=60 mL/min/1.[address] [facility] GFR/1.73 sq M.predicted among non-blacks MDRD (S/P/Bld) [Vol rate/Area] 27 mL/min/{1.73_m2} Low >=60 mL/min/1.[address] [facility] Hematocrit Auto (Bld) [Volum e fraction]on 03-02-2025 Hematocrit (Bld) [Volume fraction] Hematocrit [Volume Fraction] of Blood by Automated count 36.0-48.0 [facility] Hematocrit (Bld) [Volume fraction] 38.7 % 36.0-48.0 [facility] Hemoglobin [Mass/volume] in Bloodon 03-02-2025 Hemoglobin (Bld) [Mass/Vol] Hemoglobin [Mass/volume] in Blood 12.0-16.0 [facility] Hemoglobin (Bld) [Mass/Vol] 12.9 g/dL 12.0-16.0 [facility] Iron binding capacity [Mass/ volume] in Serum or Plasmaon 03-02-2025 Iron binding capacity [Mass/Vol] Iron binding capacity [Mass/volume] in Serum or Plasma 250.0-450.0 [facility] Iron binding capacity [Mass/Vol] 278.0 ug/dL 250.0-450.0 [facility] Iron saturation [Mass Fracti on] in Serum or Plasmaon 03-02-2025 Iron saturation [Mass fraction] Iron saturation [Mass Fraction] in Serum or Plasma [facility] Iron saturation [Mass fraction] 22.3 % [facility] Laboratory - Chemistry and C hemistry - challengeon 03-02-2025 Albumin [Mass/Vol] 2.4 g/dL Low 3.4-5.0 [facility] Calcium [Mass/Vol] 8.1 mg/dL Low 8.5-10.1 [facility] Chloride [Moles/Vol] 96 mmol/L Low 98-107 [facility] Cholesterol [Mass/Vol] 136 mg/dL <=200 [facility] Cholesterol in HDL [Mass/Vol] 56 mg/dL 40-60 [facility] Comment on above: > or =60 mg/dl - LOW CARDIOVASCULAR RISK<40 mg/dl - HIGH CARDIOVASCULAR RISK CO2 [Moles/Vol] 31.2 mmol/L 21.0-32.0 [facility] Creatinine [Mass/Vol] 1.83 mg/dL High 0.55-1.02 [facility] Ferritin [Mass/Vol] 114.0 ng/mL 8.0-252.0 [facility] GFR/1.73 sq M.predicted MDRD (S/P/Bld) [Vol rate/Area] 32 mL/min/{1.73_m2} Low >=60 mL/min/1.[address] [facility] Glucose [Mass/Vol] 337 mg/dL High 74-106 [facility] Iron [Mass/Vol] 62.0 ug/dL 50.0-170.0 [facility] Magnesium [Mass/Vol] 1.0 mg/dL Low 1.8-2.4 [facility] Natriuretic peptide B (Bld) [Mass/Vol] 4236.0 pg/mL Critically high <=1800.0 [facility] Comment on above: RESULTS CALLED TO AN GIACOMO ACUNA Potassium [Moles/Vol] 3.6 mmol/L 3.5-5.1 [facility] Sodium [Moles/Vol] 137 mmol/L 136-145 [facility] Triglyceride [Mass/Vol] 122 mg/dL <=150 [facility] Urate [Mass/Vol] 8.1 mg/dL High 2.6-6.0 [facility] Urea nitrogen [Mass/Vol] 53.0 mg/dL High 7.0-18.0 [facility] Urea nitrogen/Creatinine [Mass ratio] 29.0 mg/mg [facility] Bilirubin Ql (U) Negative NEGATIVE [facility] Glucose (U) [Mass/Vol] 250 mg/dL Abnormal [facility] Ketones Ql (U) Negative NEGATIVE [facility] pH (U) 6.0 [pH] 5.0-9.0 [facility] Specific gravity (U) [Rel density] 1.020 1.005-1.025 [facility] Urobilinogen Qn (U) 0.2 {Meka'U}/dL 0.2-1.0 [facility] Laboratory - Specimen inform ationon 03-02-2025 Appearance (U) CLEAR CLEAR [facility] Color (U) LT. YELLOW YELLOW [facility] Laboratory - Urinalysison Leukocyte esterase Test strip Ql (U) Negative NEGATIVE [facility] Mucus Ql (Urine sed) TRACE Abnormal NONE SEEN [facility] Nitrite Ql (U) Negative NEGATIVE [facility] Protein (U) [Mass/Vol] 186.2 mg/dL High <=11.9 [facility] Protein Ql (U) >=300 mg/dL Abnormal NEG/TRACE [facility] Leukocytes [#/volume] correc gali for nucleated erythrocytes in Blood by Automated counon 03-02-2025 WBC corrected for nucl RBC Auto (Bld) [#/Vol] Leukocytes [#/volume] corrected for nucleated erythrocytes in Blood by Automated coun 4.0-11.0 [facility] WBC corrected for nucl RBC Auto (Bld) [#/Vol] 8.7 10 3/uL 4.0-11.0 [facility] MCH Auto (RBC) [Entitic mass ]on 03-02-2025 MCH (RBC) [Entitic mass] MCH [Entitic mass] by Automated count 26.7-34.0 [facility] MCH (RBC) [Entitic mass] 29.4 pg 26.7-34.0 [facility] MCHC Auto (RBC) [Mass/Vol]on 03-02-2025 MCHC (RBC) [Mass/Vol] MCHC [Mass/volume] by Automated count 29.9-35.2 [facility] MCHC (RBC) [Mass/Vol] 33.3 g/dL 29.9-35.2 [facility] MCV Auto (RBC) [Entitic vol] on 03-02-2025 MCV (RBC) [Entitic vol] MCV [Entitic volume] by Automated count 81.0-99.0 [facility] MCV (RBC) [Entitic vol] 88.2 fL 81.0-99.0 [facility] No Panel Informationon 03-02 25-Hydroxy Vitamin D Total 10.8 ng/mL [facility] Comment on above: <20 ng/mL Vit D defi cient20-<30 ng/mL Vit D sfoqsgygqcul87-633 ng/mL Vit D sufficient>100 ng/mL Potential Toxicity Parathyroid Hormone (Intact) 57 pg/mL [facility] Comment on above: Performed at: - [facility] [place] [address], [place], [place] [id number] Director: Dimitri Landis PhD, Phone: [phone] Phosphorus Level 4.9 mg/dL High 2.6-4.7 [facility] 57 pg/mL [facility] 10.8 ng/mL [facility] 114.0 ng/mL 8.0-252.0 [facility] 4236.0 pg/mL Critically high <=1800.0 [facility] 1.0 mg/dL Low 1.8-2.4 [facility] 2.4 g/dL Low 3.4-5.0 [facility] 4.9 mg/dL High 2.6-4.7 [facility] 8.1 mg/dL Low 8.5-10.1 [facility] 136 mg/dL <=200 [facility] 29.0 [facility] 62.0 ug/dL 50.0-170.0 [facility] 56 mg/dL 40-60 [facility] 53.0 mg/dL High 7.0-18.0 [facility] 122 mg/dL <=150 [facility] 96 mmol/L Low 98-107 [facility] 31.2 mmol/L 21.0-32.0 [facility] 1.83 mg/dL High 0.55-1.02 [facility] 32 Low >=60 mL/min/1.[address] [facility] 337 mg/dL High 74-106 [facility] 3.6 mmol/L 3.5-5.1 [facility] 137 mmol/L 136-145 [facility] Urine Bacteria SMALL #/HPF Abnormal NONE SEEN [facility] Urine Occult Blood TRACE-I NEGATIVE [facility] Urine Other Casts NONE SEEN #/LPF NONE SEEN [facility] Urine Other Crystals None Seen #/HPF None Seen [facility] Urine Random Creatinine 26.93 mg/dL 20.00-300.[address] [facility] Urine RBC 2-5 #/HPF Abnormal 0-2 [facility] Urine Squamous Epithelial Cells FEW #/LPF Abnormal NONE/RARE [facility] Urine WBC NONE SEEN #/HPF NONE SEEN [facility] 26.93 mg/dL 20.00-300.[address] [facility] 186.2 mg/dL High <=11.9 [facility] Office Visiton 03-02-2025 Follow-up visit [id number] Joe Call 1945 Date Provider Department Center 03/02/2025 SABRINA RAMIREZ [facility] Family History Problem Relation Age of Onset Heart disease Mother Heart attack Father Coronary artery disease Other Diabetes Other Polycystic kidney disease Other Family Status - Relation Status Age at Mother Father Sister Brother Other Level of Service:24620 [place] OFFICE/OUTPATIENT ESTABLISHED MOD MDM 30 MIN Reason for Visit and Comments: 5 week follow up with Labs [Other] [facility] Orders Onlyon 03-02-2025 Orders Only [id number] Joe Call 1945 Provider Department Center 03/02/2025 ARSENIO CASTELLANO [facility] Family History Problem Relation Age of Onset Heart disease Mother Heart attack Father Coronary artery disease Other Diabetes Other Polycystic kidney disease Other Family Status - Relation Status Age at Mother Father Sister Brother Other [facility] Platelet mean volume Auto (B ld) [Entitic vol]on 03-02-2025 Platelet mean volume (Bld) [Entitic vol] Platelet mean volume [Entitic volume] in Blood by Automated count 9.5-13.5 [facility] Platelet mean volume (Bld) [Entitic vol] 11.7 fL 9.5-13.5 [facility] Platelets Auto (Bld) [#/Vol] on 03-02-2025 Platelets (Bld) [#/Vol] Platelets [#/volume] in Blood by Automated count 150-450 [facility] Platelets (Bld) [#/Vol] 150 10 3/uL 150-450 [facility] RBC Auto (Bld) [#/Vol]on RBC (Bld) [#/Vol] Erythrocytes [#/volu me] in Blood by Automated count 4.20-5.40 [facility] RBC (Bld) [#/Vol] 4.39 10 6/uL 4.20-5.40 [facility] Serum or plasma anion gap de terminationon 03-02-2025 Anion gap [Moles/Vol] Serum or plasma an ion gap determination [facility] Anion gap [Moles/Vol] 13.4 mmol[facility] Serum or plasma total choles terol/high density lipoprotein (HDL) cholesterol mass herminia 03-02-2025 Cholesterol.total/Chol esterol in HDL [Mass ratio] Serum or plasma total cholesterol/high density lipoprotein (HDL) cholesterol mass rat [facility] Comment on above: 3.3 - 4.4 LOW RISK4. 4 - 7.1 AVERAGE RISK7.1 - 11.0 MODERATE RISK>11.0 HIGH RISK Cholesterol.total/Chol esterol in HDL [Mass ratio] 2.4 {ratio} [facility] Comment on above: 3.3 - 4.4 LOW RISK4. 4 - 7.1 AVERAGE RISK7.1 - 11.0 MODERATE RISK>11.0 HIGH RISK Urine protein/creatinine rat ioon 03-02-2025 Protein/Creatinine (U) [Ratio] Urine protein/creatinine ratio [facility] Protein/Creatinine (U) [Ratio] 6.91 [facility] Yeast detection in urine sed iment by light microscopyon 03-02-2025 Yeast LM Ql (Urine sed) SEEN Abnormal NONE SEEN [facility] Office Visiton 01-28-2025 Follow-up visit [id number] Joe Call 1945 F Date Provider Department Center 01/28/2025 [id number]-LITSKOSABRINA LUNA [facility] Family History Problem Relation Age of Onset Coronary artery disease Other Diabetes Other Polycystic kidney disease Other Family Status - Relation Status Age at Other Level of Service:65043 [place] OFFICE/OUTPATIENT ESTABLISHED MOD MDM 30 MIN Reason for Visit and Comments: Hypertension [326994] Congestive Heart Failure [127] - Discharged yesterday from [facility] for CHF. Discharge papers from [facility] do not have her on a diuretic. Patient believes she's taking furosemide 40mg every other day. Coronary Artery Disease [187] Atrial Fibrillation [80] - Denies lightheadedness/syncope and bleeding on Xarelto. Hyperlipidemia [182] - No lipids since last visit. Edema [[id number]] Shortness of Breath [] - Improving. Palpitations [] Fall [[id number]] - Fell a few days ago at home when she slipped on the carpet. [facility] Basophils Auto (Bld) [#/Vol] on 01-27-2025 Basophils (Bld) [#/Vol] Automated basophil count 0.0-0.1 [facility] Basophils/100 WBC Auto (Bld) on 01-27-2025 Basophils/100 WBC (Bld) Automated basophil % 0.2-2.0 [facility] Eosinophils/100 WBC Auto (Bl d)on 01-27-2025 Eosinophils/100 WBC (Bld) Automated eosinophil % 0.9-7.0 [facility] Erythrocyte distribution wid th Auto (RBC) [Ratio]on 01-27-2025 Erythrocyte distribution width (RBC) [Ratio] Erythrocyte distribution width [Ratio] by Automated count 11.0-15.0 [facility] Estimated glomerular filtrat ion rate (GFR) non- Americanon 01-27-2025 GFR/1.73 sq M.predicted among non-blacks MDRD (S/P/Bld) [Vol rate/Area] Estimated glomerular filtration rate (GFR) non- Low >=60 mL/min/1.[address] [facility] Globulin Calc (S) [Mass/Vol] on 01-27-2025 Globulin (S) [Mass/Vol] Serum globulin measurement by calculation (mass/volume) [facility] Hematocrit Auto (Bld) [Volum e fraction]on 01-27-2025 Hematocrit (Bld) [Volume fraction] Hematocrit [Volume Fraction] of Blood by Automated count 36.0-48.0 [facility] Hemoglobin [Mass/volume] in Bloodon 01-27-2025 Hemoglobin (Bld) [Mass/Vol] Hemoglobin [Mass/volume] in Blood 12.0-16.0 [facility] Laboratory - Chemistry and C hemistry - challengeon 01-27-2025 Potassium [Moles/Vol] 3.8 mmol/L 3.5-5.1 [facility] Albumin [Mass/Vol] 2.1 g/dL Low 3.4-5.0 [facility] ALP [Catalytic activity/Vol] 79 U/L 46-116 [facility] ALT [Catalytic activity/Vol] 8 U/L Low 14-59 [facility] AST [Catalytic activity/Vol] 17 U/L 15-37 [facility] Bilirubin [Mass/Vol] 0.4 mg/dL 0.2-1.0 [facility] Calcium [Mass/Vol] 8.3 mg/dL Low 8.5-10.1 [facility] Chloride [Moles/Vol] 105 mmol/L 98-107 [facility] CO2 [Moles/Vol] 36.4 mmol/L High 21.0-32.0 [facility] Creatinine [Mass/Vol] 1.52 mg/dL High 0.55-1.02 [facility] GFR/1.73 sq M.predicted MDRD (S/P/Bld) [Vol rate/Area] 40 mL/min/{1.73_m2} Low >=60 mL/min/1.[address] [facility] Glucose [Mass/Vol] 113 mg/dL High 74-106 [facility] Magnesium [Mass/Vol] 1.3 mg/dL Low 1.8-2.4 [facility] Protein [Mass/Vol] 6.1 g/dL Low 6.4-8.2 [facility] Sodium [Moles/Vol] 144 mmol/L 136-145 [facility] Urea nitrogen [Mass/Vol] 22.0 mg/dL High 7.0-18.0 [facility] Urea nitrogen/Creatinine [Mass ratio] 14.5 mg/mg [facility] Laboratory - Hematology and Cell countson 01-27-2025 Immature granulocytes/100 WBC (Bld) 0.2 % 0.0-0.5 [facility] Leukocytes [#/volume] correc gali for nucleated erythrocytes in Blood by Automated counon 01-27-2025 WBC corrected for nucl RBC Auto (Bld) [#/Vol] Leukocytes [#/volume] corrected for nucleated erythrocytes in Blood by Automated coun 4.0-11.0 [facility] Lymphocytes Auto (Bld) [#/Vo l]on 01-27-2025 Lymphocytes (Bld) [#/Vol] Lymphocytes [#/volume] in Blood by Automated count 1.2-3.8 [facility] Lymphocytes/100 WBC Auto (Bl d)on 01-27-2025 Lymphocytes/100 WBC (Bld) Lymphocytes/100 leukocytes in Blood by Automated count 20.5-60.0 [facility] MCH Auto (RBC) [Entitic mass ]on 01-27-2025 MCH (RBC) [Entitic mass] MCH [Entitic mass] by Automated count 26.7-34.0 [facility] MCHC Auto (RBC) [Mass/Vol]on 01-27-2025 MCHC (RBC) [Mass/Vol] MCHC [Mass/volume] by Automated count 29.9-35.2 [facility] MCV Auto (RBC) [Entitic vol] on 01-27-2025 MCV (RBC) [Entitic vol] MCV [Entitic volume] by Automated count 81.0-99.0 [facility] Monocytes Auto (Bld) [#/Vol] on 01-27-2025 Monocytes (Bld) [#/Vol] Automated blood monocyte count High 0.3-0.8 [facility] Monocytes/100 WBC Auto (Bld) on 01-27-2025 Monocytes/100 WBC (Bld) Automated monocyte % 1.7-12.0 [facility] Neutrophils Auto (Bld) [#/Vo l]on 01-27-2025 Neutrophils (Bld) [#/Vol] Neutrophils [#/volume] in Blood by Automated count 1.4-6.5 [facility] Neutrophils/100 WBC Auto (Bl d)on 01-27-2025 Neutrophils/100 WBC (Bld) Automated neutrophil % 43.0-75.0 [facility] No Panel Informationon 01-27 3.8 mmol/L 3.5-5.1 [facility] Eosinophils # (Auto) 0.2 10 3/uL 0.0-0.7 [facility] Immature Granulocyte # (Auto) 0.02 10 3/uL 0.00-0.03 [facility] 1.3 mg/dL Low 1.8-2.4 [facility] 0.2 10 3/uL 0.0-0.7 [facility] 2.1 g/dL Low 3.4-5.0 [facility] 79 U/L 46-116 [facility] 8 U/L Low 14-59 [facility] 17 U/L 15-37 [facility] 0.02 10 3/uL 0.00-0.03 [facility] 14.5 [facility] 0.2 % 0.0-0.5 [facility] 22.0 mg/dL High 7.0-18.0 [facility] 8.3 mg/dL Low 8.5-10.1 [facility] 105 mmol/L 98-107 [facility] 36.4 mmol/L High 21.0-32.0 [facility] 1.52 mg/dL High 0.55-1.02 [facility] 40 Low >=60 mL/min/1.[address] [facility] 113 mg/dL High 74-106 [facility] 144 mmol/L 136-145 [facility] 0.4 mg/dL 0.2-1.0 [facility] 6.1 g/dL Low 6.4-8.2 [facility] Platelet mean volume Auto (B ld) [Entitic vol]on 01-27-2025 Platelet mean volume (Bld) [Entitic vol] Platelet mean volume [Entitic volume] in Blood by Automated count 9.5-13.5 [facility] Platelets Auto (Bld) [#/Vol] on 01-27-2025 Platelets (Bld) [#/Vol] Platelets [#/volume] in Blood by Automated count 150-450 [facility] RBC Auto (Bld) [#/Vol]on RBC (Bld) [#/Vol] Erythrocytes [#/volu me] in Blood by Automated count 4.20-5.40 [facility] Serum or plasma albumin/glob ulin mass ratioon 01-27-2025 Albumin/Globulin [Mass ratio] Serum or plasma albumin/globulin mass ratio [facility] Serum or plasma anion gap de terminationon 01-27-2025 Anion gap [Moles/Vol] Serum or plasma an ion gap determination [facility] Basophils Auto (Bld) [#/Vol] on 01-26-2025 Basophils (Bld) [#/Vol] Automated basophil count 0.0-0.1 [facility] Basophils/100 WBC Auto (Bld) on 01-26-2025 Basophils/100 WBC (Bld) Automated basophil % 0.2-2.0 [facility] Eosinophils/100 WBC Auto (Bl d)on 01-26-2025 Eosinophils/100 WBC (Bld) Automated eosinophil % 0.9-7.0 [facility] Erythrocyte distribution wid th Auto (RBC) [Ratio]on 01-26-2025 Erythrocyte distribution width (RBC) [Ratio] Erythrocyte distribution width [Ratio] by Automated count 11.0-15.0 [facility] Estimated glomerular filtrat ion rate (GFR) non- Americanon 01-26-2025 GFR/1.73 sq M.predicted among non-blacks MDRD (S/P/Bld) [Vol rate/Area] Estimated glomerular filtration rate (GFR) non- Low >=60 mL/min/1.[address] [facility] Globulin Calc (S) [Mass/Vol] on 01-26-2025 Globulin (S) [Mass/Vol] Serum globulin measurement by calculation (mass/volume) [facility] Hematocrit Auto (Bld) [Volum e fraction]on 01-26-2025 Hematocrit (Bld) [Volume fraction] Hematocrit [Volume Fraction] of Blood by Automated count 36.0-48.0 [facility] Hemoglobin [Mass/volume] in Bloodon 01-26-2025 Hemoglobin (Bld) [Mass/Vol] Hemoglobin [Mass/volume] in Blood 12.0-16.0 [facility] Laboratory - Chemistry and C hemistry - challengeon 01-26-2025 Albumin [Mass/Vol] 1.9 g/dL Low 3.4-5.0 [facility] ALP [Catalytic activity/Vol] 77 U/L 46-116 [facility] ALT [Catalytic activity/Vol] 11 U/L Low 14-59 [facility] AST [Catalytic activity/Vol] 19 U/L 15-37 [facility] Bilirubin [Mass/Vol] 0.4 mg/dL 0.2-1.0 [facility] Calcium [Mass/Vol] 8.0 mg/dL Low 8.5-10.1 [facility] Chloride [Moles/Vol] 105 mmol/L 98-107 [facility] CO2 [Moles/Vol] 35.1 mmol/L High 21.0-32.0 [facility] Creatinine [Mass/Vol] 1.36 mg/dL High 0.55-1.02 [facility] GFR/1.73 sq M.predicted MDRD (S/P/Bld) [Vol rate/Area] 46 mL/min/{1.73_m2} Low >=60 mL/min/1.[address] [facility] Glucose [Mass/Vol] 133 mg/dL High 74-106 [facility] Magnesium [Mass/Vol] 1.3 mg/dL Low 1.8-2.4 [facility] Potassium [Moles/Vol] 2.9 mmol/L Critically low 3.5-5.1 [facility] Comment on above: RESULTS CALLED TO JOSE MARTIN DODGE RN @BY Alla Venegas at 0635 Protein [Mass/Vol] 5.8 g/dL Low 6.4-8.2 [facility] Sodium [Moles/Vol] 145 mmol/L 136-145 [facility] Urea nitrogen [Mass/Vol] 21.0 mg/dL High 7.0-18.0 [facility] Urea nitrogen/Creatinine [Mass ratio] 15.4 mg/mg [facility] Laboratory - Hematology and Cell countson 01-26-2025 Immature granulocytes/100 WBC (Bld) 0.1 % 0.0-0.5 [facility] Leukocytes [#/volume] correc gali for nucleated erythrocytes in Blood by Automated counon 01-26-2025 WBC corrected for nucl RBC Auto (Bld) [#/Vol] Leukocytes [#/volume] corrected for nucleated erythrocytes in Blood by Automated coun 4.0-11.0 [facility] Lymphocytes Auto (Bld) [#/Vo l]on 01-26-2025 Lymphocytes (Bld) [#/Vol] Lymphocytes [#/volume] in Blood by Automated count 1.2-3.8 [facility] Lymphocytes/100 WBC Auto (Bl d)on 01-26-2025 Lymphocytes/100 WBC (Bld) Lymphocytes/100 leukocytes in Blood by Automated count Low 20.5-60.0 [facility] MCH Auto (RBC) [Entitic mass ]on 01-26-2025 MCH (RBC) [Entitic mass] MCH [Entitic mass] by Automated count 26.7-34.0 [facility] MCHC Auto (RBC) [Mass/Vol]on 01-26-2025 MCHC (RBC) [Mass/Vol] MCHC [Mass/volume] by Automated count 29.9-35.2 [facility] MCV Auto (RBC) [Entitic vol] on 01-26-2025 MCV (RBC) [Entitic vol] MCV [Entitic volume] by Automated count 81.0-99.0 [facility] Monocytes Auto (Bld) [#/Vol] on 01-26-2025 Monocytes (Bld) [#/Vol] Automated blood monocyte count 0.3-0.8 [facility] Monocytes/100 WBC Auto (Bld) on 01-26-2025 Monocytes/100 WBC (Bld) Automated monocyte % 1.7-12.0 [facility] Neutrophils Auto (Bld) [#/Vo l]on 01-26-2025 Neutrophils (Bld) [#/Vol] Neutrophils [#/volume] in Blood by Automated count 1.4-6.5 [facility] Neutrophils/100 WBC Auto (Bl d)on 01-26-2025 Neutrophils/100 WBC (Bld) Automated neutrophil % 43.0-75.0 [facility] No Panel Informationon 01-26 Eosinophils # (Auto) 0.1 10 3/uL 0.0-0.7 [facility] Immature Granulocyte # (Auto) 0.01 10 3/uL 0.00-0.03 [facility] Troponin I High Sensitivity 30.9 pg/mL 4.0-51.3 [facility] Comment on above: CUT-OFF POINTS [...] IN CONJUNCTIONWITH OTHER DIAGNOSTIC AND CLINICAL INFORMATION. 1.3 mg/dL Low 1.8-2.4 [facility] 30.9 pg/mL 4.0-51.3 [facility] 0.1 10 3/uL 0.0-0.7 [facility] 1.9 g/dL Low 3.4-5.0 [facility] 77 U/L 46-116 [facility] 11 U/L Low 14-59 [facility] 19 U/L 15-37 [facility] 0.01 10 3/uL 0.00-0.03 [facility] 15.4 [facility] 0.1 % 0.0-0.5 [facility] 21.0 mg/dL High 7.0-18.0 [facility] 8.0 mg/dL Low 8.5-10.1 [facility] 105 mmol/L 98-107 [facility] 35.1 mmol/L High 21.0-32.0 [facility] 1.36 mg/dL High 0.55-1.02 [facility] 46 Low >=60 mL/min/1.[address] [facility] 133 mg/dL High 74-106 [facility] 2.9 mmol/L Critically low 3.5-5.1 [facility] 145 mmol/L 136-145 [facility] 0.4 mg/dL 0.2-1.0 [facility] 5.8 g/dL Low 6.4-8.2 [facility] Platelet mean volume Auto (B ld) [Entitic vol]on 01-26-2025 Platelet mean volume (Bld) [Entitic vol] Platelet mean volume [Entitic volume] in Blood by Automated count 9.5-13.5 [facility] Platelets Auto (Bld) [#/Vol] on 01-26-2025 Platelets (Bld) [#/Vol] Platelets [#/volume] in Blood by Automated count 150-450 [facility] RBC Auto (Bld) [#/Vol]on RBC (Bld) [#/Vol] Erythrocytes [#/volu me] in Blood by Automated count Low 4.20-5.40 [facility] Serum or plasma albumin/glob ulin mass ratioon 01-26-2025 Albumin/Globulin [Mass ratio] Serum or plasma albumin/globulin mass ratio [facility] Serum or plasma anion gap de terminationon 01-26-2025 Anion gap [Moles/Vol] Serum or plasma an ion gap determination [facility] Basophils Auto (Bld) [#/Vol] on 01-25-2025 Basophils (Bld) [#/Vol] Automated basophil count 0.0-0.1 [facility] Basophils/100 WBC Auto (Bld) on 01-25-2025 Basophils/100 WBC (Bld) Automated basophil % 0.2-2.0 [facility] Eosinophils/100 WBC Auto (Bl d)on 01-25-2025 Eosinophils/100 WBC (Bld) Automated eosinophil % 0.9-7.0 [facility] Erythrocyte distribution wid th Auto (RBC) [Ratio]on 01-25-2025 Erythrocyte distribution width (RBC) [Ratio] Erythrocyte distribution width [Ratio] by Automated count 11.0-15.0 [facility] Estimated glomerular filtrat ion rate (GFR) non- Americanon 01-25-2025 GFR/1.73 sq M.predicted among non-blacks MDRD (S/P/Bld) [Vol rate/Area] Estimated glomerular filtration rate (GFR) non- Low >=60 mL/min/1.[address] [facility] Hematocrit Auto (Bld) [Volum e fraction]on 01-25-2025 Hematocrit (Bld) [Volume fraction] Hematocrit [Volume Fraction] of Blood by Automated count 36.0-48.0 [facility] Hemoglobin [Mass/volume] in Bloodon 01-25-2025 Hemoglobin (Bld) [Mass/Vol] Hemoglobin [Mass/volume] in Blood 12.0-16.0 [facility] Laboratory - Chemistry and C hemistry - challengeon 01-25-2025 Potassium [Moles/Vol] 3.1 mmol/L Low 3.5-5.1 [facility] Free T4 [Mass/Vol] 1.65 ng/dL High 0.76-1.46 [facility] Magnesium [Mass/Vol] 1.2 mg/dL Low 1.8-2.4 [facility] TSH Qn 6.107 m[IU]/L High 0.358-3.740 [facility] Calcium [Mass/Vol] 8.1 mg/dL Low 8.5-10.1 [facility] Chloride [Moles/Vol] 104 mmol/L 98-107 [facility] CO2 [Moles/Vol] 34.6 mmol/L High 21.0-32.0 [facility] Creatinine [Mass/Vol] 1.49 mg/dL High 0.55-1.02 [facility] GFR/1.73 sq M.predicted MDRD (S/P/Bld) [Vol rate/Area] 41 mL/min/{1.73_m2} Low >=60 mL/min/1.[address] [facility] Glucose [Mass/Vol] 121 mg/dL High 74-106 [facility] Natriuretic peptide B (Bld) [Mass/Vol] 7089.0 pg/mL Critically high <=1800.0 [facility] Comment on above: RESULTS CALLED TO RENETTA Hogan, RN @BY Andrea Long [place] at 0458 Sodium [Moles/Vol] 144 mmol/L 136-145 [facility] Urea nitrogen [Mass/Vol] 22.0 mg/dL High 7.0-18.0 [facility] Urea nitrogen/Creatinine [Mass ratio] 14.8 mg/mg [facility] Laboratory - Hematology and Cell countson 01-25-2025 Immature granulocytes/100 WBC (Bld) 0.4 % 0.0-0.5 [facility] Leukocytes [#/volume] correc gali for nucleated erythrocytes in Blood by Automated counon 01-25-2025 WBC corrected for nucl RBC Auto (Bld) [#/Vol] Leukocytes [#/volume] corrected for nucleated erythrocytes in Blood by Automated coun 4.0-11.0 [facility] Lymphocytes Auto (Bld) [#/Vo l]on 01-25-2025 Lymphocytes (Bld) [#/Vol] Lymphocytes [#/volume] in Blood by Automated count 1.2-3.8 [facility] Lymphocytes/100 WBC Auto (Bl d)on 01-25-2025 Lymphocytes/100 WBC (Bld) Lymphocytes/100 leukocytes in Blood by Automated count Low 20.5-60.0 [facility] MCH Auto (RBC) [Entitic mass ]on 01-25-2025 MCH (RBC) [Entitic mass] MCH [Entitic mass] by Automated count 26.7-34.0 [facility] MCHC Auto (RBC) [Mass/Vol]on 01-25-2025 MCHC (RBC) [Mass/Vol] MCHC [Mass/volume] by Automated count 29.9-35.2 [facility] MCV Auto (RBC) [Entitic vol] on 01-25-2025 MCV (RBC) [Entitic vol] MCV [Entitic volume] by Automated count 81.0-99.0 [facility] Monocytes Auto (Bld) [#/Vol] on 01-25-2025 Monocytes (Bld) [#/Vol] Automated blood monocyte count 0.3-0.8 [facility] Monocytes/100 WBC Auto (Bld) on 01-25-2025 Monocytes/100 WBC (Bld) Automated monocyte % 1.7-12.0 [facility] Neutrophils Auto (Bld) [#/Vo l]on 01-25-2025 Neutrophils (Bld) [#/Vol] Neutrophils [#/volume] in Blood by Automated count 1.4-6.5 [facility] Neutrophils/100 WBC Auto (Bl d)on 01-25-2025 Neutrophils/100 WBC (Bld) Automated neutrophil % 43.0-75.0 [facility] No Panel Informationon 01-25 3.1 mmol/L Low 3.5-5.1 [facility] Clostridium difficile (PCR)(LAB) Negative [facility] Negative [facility] Troponin I High Sensitivity 28.4 pg/mL 4.0-51.3 [facility] Comment on above: CUT-OFF POINTS [...] IN CONJUNCTIONWITH OTHER DIAGNOSTIC AND CLINICAL INFORMATION. 1.65 ng/dL High 0.76-1.46 [facility] 6.107 u[iU]/mL High 0.358-3.740 [facility] 28.4 pg/mL 4.0-51.3 [facility] 1.2 mg/dL Low 1.8-2.4 [facility] Eosinophils # (Auto) 0.1 10 3/uL 0.0-0.7 [facility] Immature Granulocyte # (Auto) 0.03 10 3/uL 0.00-0.03 [facility] 7089.0 pg/mL Critically high <=1800.0 [facility] 14.8 [facility] 22.0 mg/dL High 7.0-18.0 [facility] 0.1 10 3/uL 0.0-0.7 [facility] 8.1 mg/dL Low 8.5-10.1 [facility] 104 mmol/L 98-107 [facility] 34.6 mmol/L High 21.0-32.0 [facility] 1.49 mg/dL High 0.55-1.02 [facility] 0.03 10 3/uL 0.00-0.03 [facility] 41 Low >=60 mL/min/1.[address] [facility] 0.4 % 0.0-0.5 [facility] 121 mg/dL High 74-106 [facility] 144 mmol/L 136-145 [facility] Platelet mean volume Auto (B ld) [Entitic vol]on 01-25-2025 Platelet mean volume (Bld) [Entitic vol] Platelet mean volume [Entitic volume] in Blood by Automated count 9.5-13.5 [facility] Platelets Auto (Bld) [#/Vol] on 01-25-2025 Platelets (Bld) [#/Vol] Platelets [#/volume] in Blood by Automated count 150-450 [facility] RBC Auto (Bld) [#/Vol]on RBC (Bld) [#/Vol] Erythrocytes [#/volu me] in Blood by Automated count Low 4.20-5.40 [facility] Serum or plasma anion gap de terminationon 01-25-2025 Anion gap [Moles/Vol] Serum or plasma an ion gap determination [facility] Laboratory - Chemistry and C hemistry - challengeon 01-21-2025 Bilirubin Ql (U) ++ [facility] Glucose (U) [Mass/Vol] [facility] Ketones Ql (U) Negative [facility] pH (U) 6.0 [pH] [facility] Specific gravity (U) [Rel density] 1.010 [facility] Urobilinogen (U) [Mass/Vol] 0.2 mg/dL [facility] Laboratory - Specimen inform ationon 01-21-2025 Appearance (U) cloudy [facility] Color (U) darkyellow [facility] Laboratory - Urinalysison Leukocyte esterase Test strip Ql (U) Negative [facility] Nitrite Ql (U) Negative [facility] Protein Ql (U) ++++ [facility] No Panel Informationon 01-21 Urine Occult Blood 5-10 [facility] darkyellow [facility] cloudy [facility] 1.010 [facility] 6.0 [facility] Negative [facility] ++++ [facility] + [facility] 0.2 [facility] ++ [facility] 5-10 [facility] Basophils Auto (Bld) [#/Vol] on 12-04-2024 Basophils (Bld) [#/Vol] Automated basophil count 0.0-0.1 [facility] Basophils/100 WBC Auto (Bld) on 12-04-2024 Basophils/100 WBC (Bld) Automated basophil % 0.2-2.0 [facility] Eosinophils/100 WBC Auto (Bl d)on 12-04-2024 Eosinophils/100 WBC (Bld) Automated eosinophil % 0.9-7.0 [facility] Erythrocyte distribution wid th Auto (RBC) [Ratio]on 12-04-2024 Erythrocyte distribution width (RBC) [Ratio] Erythrocyte distribution width [Ratio] by Automated count 11.0-15.0 [facility] Estimated glomerular filtrat ion rate (GFR) non- Americanon 12-04-2024 GFR/1.73 sq M.predicted among non-blacks MDRD (S/P/Bld) [Vol rate/Area] Estimated glomerular filtration rate (GFR) non- Low >=60 mL/min/1.[address] [facility] Globulin Calc (S) [Mass/Vol] on 12-04-2024 Globulin (S) [Mass/Vol] Serum globulin measurement by calculation (mass/volume) [facility] Hematocrit Auto (Bld) [Volum e fraction]on 12-04-2024 Hematocrit (Bld) [Volume fraction] Hematocrit [Volume Fraction] of Blood by Automated count 36.0-48.0 [facility] Hemoglobin [Mass/volume] in Bloodon 12-04-2024 Hemoglobin (Bld) [Mass/Vol] Hemoglobin [Mass/volume] in Blood Low 12.0-16.0 [facility] INR in Platelet poor plasma by Coagulation assayon 12-04-2024 INR Coag (PPP) [Relative time] INR in Platelet poor plasma by Coagulation assay [facility] Comment on above: DESIRED INR:2.0-3.0 CONDITIONS NOT LISTED BELOW2.5-3.5 FOR PROSTHETIC HEART VALVE REPLACEMENT2.5-3.5 RECURRENT THROMBOSIS Laboratory - Chemistry and C hemistry - challengeon 12-04-2024 Albumin [Mass/Vol] 2.7 g/dL Low 3.4-5.0 [facility] ALP [Catalytic activity/Vol] 111 U/L 46-116 [facility] ALT [Catalytic activity/Vol] 19 U/L 14-59 [facility] AST [Catalytic activity/Vol] 16 U/L 15-37 [facility] Bilirubin [Mass/Vol] 0.6 mg/dL 0.2-1.0 [facility] Calcium [Mass/Vol] 8.7 mg/dL 8.5-10.1 [facility] Chloride [Moles/Vol] 101 mmol/L 98-107 [facility] CO2 [Moles/Vol] 29.9 mmol/L 21.0-32.0 [facility] Creatinine [Mass/Vol] 1.24 mg/dL High 0.55-1.02 [facility] GFR/1.73 sq M.predicted MDRD (S/P/Bld) [Vol rate/Area] 51 mL/min/{1.73_m2} Low >=60 mL/min/1.[address] [facility] Glucose [Mass/Vol] 310 mg/dL High 74-106 [facility] Natriuretic peptide B (Bld) [Mass/Vol] 3884.0 pg/mL Critically high <=1800.0 [facility] Comment on above: RESULTS CALLED TO AMILCAR RANGEL RN Potassium [Moles/Vol] 4.3 mmol/L 3.5-5.1 [facility] Protein [Mass/Vol] 7.0 g/dL 6.4-8.2 [facility] Sodium [Moles/Vol] 138 mmol/L 136-145 [facility] Urea nitrogen [Mass/Vol] 28.0 mg/dL High 7.0-18.0 [facility] Urea nitrogen/Creatinine [Mass ratio] 22.6 mg/mg [facility] Laboratory - Hematology and Cell countson 12-04-2024 Immature granulocytes/100 WBC (Bld) 0.2 % 0.0-0.5 [facility] Leukocytes [#/volume] correc gali for nucleated erythrocytes in Blood by Automated counon 12-04-2024 WBC corrected for nucl RBC Auto (Bld) [#/Vol] Leukocytes [#/volume] corrected for nucleated erythrocytes in Blood by Automated coun 4.0-11.0 [facility] Lymphocytes Auto (Bld) [#/Vo l]on 12-04-2024 Lymphocytes (Bld) [#/Vol] Lymphocytes [#/volume] in Blood by Automated count 1.2-3.8 [facility] Lymphocytes/100 WBC Auto (Bl d)on 12-04-2024 Lymphocytes/100 WBC (Bld) Lymphocytes/100 leukocytes in Blood by Automated count Low 20.5-60.0 [facility] MCH Auto (RBC) [Entitic mass ]on 12-04-2024 MCH (RBC) [Entitic mass] MCH [Entitic mass] by Automated count 26.7-34.0 [facility] MCHC Auto (RBC) [Mass/Vol]on 12-04-2024 MCHC (RBC) [Mass/Vol] MCHC [Mass/volume] by Automated count 29.9-35.2 [facility] MCV Auto (RBC) [Entitic vol] on 12-04-2024 MCV (RBC) [Entitic vol] MCV [Entitic volume] by Automated count 81.0-99.0 [facility] Monocytes Auto (Bld) [#/Vol] on 12-04-2024 Monocytes (Bld) [#/Vol] Automated blood monocyte count 0.3-0.8 [facility] Monocytes/100 WBC Auto (Bld) on 12-04-2024 Monocytes/100 WBC (Bld) Automated monocyte % 1.7-12.0 [facility] Neutrophils Auto (Bld) [#/Vo l]on 12-04-2024 Neutrophils (Bld) [#/Vol] Neutrophils [#/volume] in Blood by Automated count 1.4-6.5 [facility] Neutrophils/100 WBC Auto (Bl d)on 12-04-2024 Neutrophils/100 WBC (Bld) Automated neutrophil % 43.0-75.0 [facility] No Panel Informationon 12-04 Eosinophils # (Auto) 0.1 10 3/uL 0.0-0.7 [facility] Immature Granulocyte # (Auto) 0.02 10 3/uL 0.00-0.03 [facility] Troponin I High Sensitivity 19.6 pg/mL 4.0-51.3 [facility] Comment on above: CUT-OFF POINTS [...] volume] in Blood by Automated count 9.5-13.5 [facility] Platelets Auto (Bld) [#/Vol] on 12-04-2024 Platelets (Bld) [#/Vol] Platelets [#/volume] in Blood by Automated count 150-450 [facility] Prothrombin time (PT)on 11-13 PT Coag (PPP) [Time] Prothrombin time (PT) High 9.0- 11.6 [facility] RBC Auto (Bld) [#/Vol]on RBC (Bld) [#/Vol] Erythrocytes [#/volu me] in Blood by Automated count Low 4.20-5.40 [facility] Serum or plasma albumin/glob ulin mass ratioon 12-04-2024 Albumin/Globulin [Mass ratio] Serum or plasma albumin/globulin mass ratio [facility] Serum or plasma anion gap de terminationon 12-04-2024 Anion gap [Moles/Vol] Serum or plasma an ion gap determination [facility] Office Visiton 12-02-2024 Follow-up visit [id number] Joe Call 1945 F Date Provider Department Center 12/02/2024 [id number] LUNA Family History Problem Relation Age of Onset Coronary artery disease Other Diabetes Other Polycystic kidney disease Other Family Status - Relation Status Age at Other Level of Service:08452 [place] OFFICE/OUTPATIENT ESTABLISHED MOD MDM 30 MIN Reason for Visit and Comments: Atrial Fibrillation [80] Congestive Heart Failure [127] - Had BMP 3 weeks ago. Taking lasix PRN. Hypertension [534706] Bradycardia [[id number]] [facility] 36on 11-18-2024 36 Regarding lab result s from 11/03/2024: MD Brooke Sawyer MA Creatinine appears to be better. Patient's made aware. [facility] Ambulatory Visit Summaryon 0 11-13-2024 Ambulatory [...] FRANCHESCA PERAZA PA-C Where: [facility] [address] [place] [address] 2024 11:20 AM EST With: STU GARAY, FRANCHESCA Alvarado Where: [facility] [address] [address]- Medications What How Much When Why Instructions [...] for choosing us for your care. Normal [facility] Estimated glomerular filtrat ion rate (GFR) non- Americanon 11-10-2024 GFR/1.73 sq M.predicted among non-blacks MDRD (S/P/Bld) [Vol rate/Area] Estimated glomerular filtration rate (GFR) non- Low >=60 mL/min/1.[address] [facility] Laboratory - Chemistry and C hemistry - challengeon 11-10-2024 Albumin [Mass/Vol] 3.0 g/dL Low 3.4-5.0 [facility] Calcium [Mass/Vol] 8.5 mg/dL 8.5-10.1 [facility] Chloride [Moles/Vol] 99 mmol/L 98-107 [facility] CO2 [Moles/Vol] 26.2 mmol/L 21.0-32.0 [facility] Creatinine [Mass/Vol] 2.00 mg/dL High 0.55-1.02 [facility] GFR/1.73 sq M.predicted MDRD (S/P/Bld) [Vol rate/Area] 29 mL/min/{1.73_m2} Low >=60 mL/min/1.[address] [facility] Glucose [Mass/Vol] 424 mg/dL High 74-106 [facility] Potassium [Moles/Vol] 4.5 mmol/L 3.5-5.1 [facility] Sodium [Moles/Vol] 136 mmol/L 136-145 [facility] Urea nitrogen [Mass/Vol] 58.0 mg/dL High 7.0-18.0 [facility] Urea nitrogen/Creatinine [Mass ratio] 29.0 mg/mg [facility] No Panel Informationon 11-10 Phosphorus Level 3.6 mg/dL 2.6-4.7 [facility] Serum or plasma anion gap de terminationon 11-10-2024 Anion gap [Moles/Vol] Serum or plasma an ion gap determination [facility] Urology Office/Clinic Noteon 11-04-2024 Urology Office/Clinic Note Urology Office/Clinic Note Chief Complaint Hospital follow up HPI Staff Pt. did see Dr. Gallardo about 20 years ago Admitted [facility] 10/16 after going to ER for weakness/SOB [...] note of the bladder scan anywhere on [facility] system or output volume once peacock placed). /pt state she was NOT having trouble urinating. She was bedridden due to the pacer and the staff was using a PureWick, but they think she was voiding too much for the PureWick to handle/starting to get skin breakdown so they think that is why the peacock was placed. Peacock placed and remained at hospital dc, no void trial attempted. Dc'd 10/20. Urine cx 10/22 neg. Has been having a lot of pain and discomfort from the peacock. Not tolerating it well. Follows w nephrology for CKD. [facility]iner 10/25/24 1.31 compared to 3.06 on 10/20/24 [...] but she will need office visit w DARIA 11/10 or 11/11. (2) Repeat renal function labs in 1 week to ensure they don't worsen since peacock removal. (3) f/u 4-6 weeks w me assuming good outcome of (1) and (2). Ordered: E&M of New Patient High 60-74 Min 06574 2. CKD (chronic kidney disease) (N18.9: Chronic kidney disease, unspecified) Follows w Dr Rapp Rubber Liner 1.31 on day of dc (10/25/24) Most recent labs 11/03/24 - BUN 34 [facility] [facility] 1.86 GFR 26 Pretty variable all year. (Results scanned into documents) Will repeat in 1 week after peacock removal. Sees Dr Rapp either 11/10 or 11/11. Ordered: E&M of New Patient High 60-74 Min 41765 Renal Function Panel 3. Stress incontinence (N39.3: Stress incontinence (female) (male)) At baseline. Typically when stands from seated position or coughing. 2-4 pads per day. Reassess baseline sx at f/u in 4-6 wks. Ordered: E&M of New Patient High 60-74 Min [id number] Total time spent reviewing previous notes/results/external documents, preparing the chart, conducting the encounter with the patient and family, ordering tests/medications, and documenting the encounter was 60 minutes. Follow-up With When Contact Information SYDNIE HASSAN Within 6 weeks [address] [place] [address] Business (1) Additional Instructions: Patient [...] acetaminophen-oxycodone 3 (more content not included)... Normal [facility] Comment on above: Result Comment: Elec tronically Signed By: STU GARAY, FRANCHESCA Alvarado\.br\Date and Time Signed: 11/04/24 11:13 EST Estimated glomerular filtrat ion rate (GFR) non- Americanon 11-03-2024 GFR/1.73 sq M.predicted among non-blacks MDRD (S/P/Bld) [Vol rate/Area] Estimated glomerular filtration rate (GFR) non- Low >=60 mL/min/1.[address] [facility] Laboratory - Chemistry and C hemistry - challengeon 11-03-2024 Calcium [Mass/Vol] 8.8 mg/dL 8.5-10.1 [facility] Chloride [Moles/Vol] 99 mmol/L 98-107 [facility] CO2 [Moles/Vol] 23.1 mmol/L 21.0-32.0 [facility] Creatinine [Mass/Vol] 1.86 mg/dL High 0.55-1.02 [facility] GFR/1.73 sq M.predicted MDRD (S/P/Bld) [Vol rate/Area] 32 mL/min/{1.73_m2} Low >=60 mL/min/1.[address] [facility] Glucose [Mass/Vol] 367 mg/dL High 74-106 [facility] Potassium [Moles/Vol] 4.7 mmol/L 3.5-5.1 [facility] Sodium [Moles/Vol] 134 mmol/L Low 136-145 [facility] Urea nitrogen [Mass/Vol] 34.0 mg/dL High 7.0-18.0 [facility] Urea nitrogen/Creatinine [Mass ratio] 18.3 mg/mg [facility] Serum or plasma anion gap de terminationon 11-03-2024 Anion gap [Moles/Vol] Serum or plasma an ion gap determination [facility] Office Visiton 10-31-2024 Follow-up visit [id number] Joe Call 1945 F Date Provider Department Center 10/31/2024 SABRINA RAMIREZ Family History Problem Relation Age of Onset Coronary artery disease Other Diabetes Other Polycystic kidney disease Other Family Status - Relation Status Age at Other Level of Service:05[address] [place] OFFICE/OUTPATIENT ESTABLISHED MOD MDM 30 MIN Normal [facility] B-Type Natriuretic Peptideon 10-25-2024 Natriuretic peptide B (Bld) [Mass/Vol] 455.0 pg/mL High 5-100 [facility] Comment on above: Result Comment: PERF ORMED BY: [place] [address] PATHOLOGIST BUSINESS APPLICATIONS DEVELOPER MAY HYDE M.D. Performed By: #### P T, CK, BNP, CBC, BMP, HEPATIC, MG, HS TROP #### [facility] [address] [place] [address] Basic Metabolic Panelon 10-12 Anion gap [Moles/Vol] 13.0 mmol/L Normal 6.0-15.0 [facility] Comment on above: Performed By: #### P T, CK, BNP, CBC, BMP, HEPATIC, MG, HS TROP #### [facility] [address] [place] [address] Calcium [Mass/Vol] 8.6 mg/dL Normal 8.6-10.3 [facility] Comment on above: Performed By: #### P T, CK, BNP, CBC, BMP, HEPATIC, MG, HS TROP #### [facility] [address] Chloride [Moles/Vol] 101 mmol/L Normal 98-107 [facility] Comment on above: Performed By: #### P T, CK, BNP, CBC, BMP, HEPATIC, MG, HS TROP #### [facility] [address] CO2 [Moles/Vol] 23.8 mmol/L Normal 21.0-31.0 [facility] Comment on above: Performed By: #### P T, CK, BNP, CBC, BMP, HEPATIC, MG, HS TROP #### [facility] [address] Creatinine [Mass/Vol] 1.31 mg/dL High 0.60-1.20 [facility] Comment on above: Performed By: #### P T, CK, BNP, CBC, BMP, HEPATIC, MG, HS TROP #### [address] Creatinine Clr Calc Pharmacy 46.58 Normal [facility] Comment on above: Result Comment: PERF ORMED BY: [place] [address] PATHOLOGIST BUSINESS APPLICATIONS DEVELOPER MAY HYDE M.D. Performed By: #### P T, CK, BNP, CBC, BMP, HEPATIC, MG, HS TROP #### [address] Estimated GFR 41.704 mL/Min Normal [facility] Comment on above: Performed By: #### P T, CK, BNP, CBC, BMP, HEPATIC, MG, HS TROP #### [address] Glucose [Mass/Vol] 232 mg/dL High 70-100 [facility] Comment on above: Result Comment: [place] Glucose Reference Range is dependent on time and content of last meal. Glucose of more than 200 mg/dL in a nonstressed, ambulatory subject supports the diagnosis of Diabetes Mellitus. ADA recommended reference range Performed By: #### P T, CK, BNP, CBC, BMP, HEPATIC, MG, HS TROP #### [facility] [address] Potassium [Moles/Vol] 4.8 mmol/L Normal 3.5-5.1 [facility] Comment on above: Performed By: #### P T, CK, BNP, CBC, BMP, HEPATIC, MG, HS TROP #### [facility] [address] Sodium [Moles/Vol] 133 mmol/L Low 136-145 [facility] Comment on above: Performed By: #### P T, CK, BNP, CBC, BMP, HEPATIC, MG, HS TROP #### [facility] [address] Urea nitrogen [Mass/Vol] 39 mg/dL High 7-25 [facility] Comment on above: Performed By: #### P T, CK, BNP, CBC, BMP, HEPATIC, MG, HS TROP #### [address] Basophils Auto (Bld) [#/Vol] Ordered By: Daniele Jane on 10-25-2024 Basophils (Bld) [#/Vol] Automated basophil count 0.0-0.2 [facility] Basophils/100 WBC Auto (Bld) Ordered By: Daniele Jane on 10-25-2024 Basophils/100 WBC (Bld) Automated basophil % . [facility] COVID CepheidOrdered By: Trino Jane on 10-25-2024 SARS-CoV-2 (COVID-19) Ab IA Ql COVID Cepheid Abnormal Negative [facility] Comment on above: This is [...] or Cepheid Disclaimer revoked sooner. PERFORMED BY: [facility] [address] [place] [address] PATHOLOGIST BUSINESS APPLICATIONS DEVELOPER MAY HYDE M.D. Normal [facility] Comment on above: Performed By: #### C OVID19 FLU RSV, CEPHEID POS #### [facility] [address] [place] [address] [place] Calcium [Mass/volume] in Ser um or PlasmaOrdered By: Daniele Jane on 10-25-2024 Calcium [Mass/Vol] Calcium [Mass/volume ] in Serum or Plasma 8.6-10.3 [facility] Carbon dioxide, total [Moles /volume] in Serum or PlasmaOrdered By: Daniele Jane on 10-25-2024 CO2 [Moles/Vol] Carbon dioxide, tota l [Moles/volume] in Serum or Plasma 21.0-31.0 [facility] Cepheid COVID PCR Positiveon 10-25-2024 SARS-CoV-2 (COVID-19) RNA FERN+probe Ql (Unsp spec) Positive Critically abnormal Negative [facility] Comment on above: Result Comment: This is a duplicate CepServoyantid Xpert Xpress CoV-2/Flu/RSV Plus RNA by RT-PCR result to be used for statistical tracking purpose only. PERFORMED BY: [address] [place] [id number] PATHOLOGIST BUSINESS APPLICATIONS DEVELOPER MAY HYDE M.D. Performed By: #### P T, CK, BNP, CBC, BMP, HEPATIC, MG, HS TROP #### [facility] [address] [place] [address] [place] Chloride [Moles/volume] in S oziel or PlasmaOrdered By: Daniele Jane on 10-25-2024 Chloride [Moles/Vol] Chloride [Moles/vol ume] in Serum or Plasma 98-107 [facility] Complete Blood Count Auto Di ffon 10-25-2024 Basophils (Bld) [#/Vol] 0.1 10*3/uL Normal 0.0-0.2 [facility] Comment on above: Result Comment: PERF ORMED BY: [facility] [address] [place] [id number] PATHOLOGIST BUSINESS APPLICATIONS DEVELOPER MAY HYDE M.D. Performed By: #### P T, CK, BNP, CBC, BMP, HEPATIC, MG, HS TROP #### [facility] [address] [place] [address] [place] Basophils/100 WBC (Bld) 0.9 % Normal . [facility] Comment on above: Performed By: #### P T, CK, BNP, CBC, BMP, HEPATIC, MG, HS TROP #### [address] Eosinophils (Bld) [#/Vol] 0.1 10*3/uL Normal 0.0-0.45 [facility] Comment on above: Performed By: #### P T, CK, BNP, CBC, BMP, HEPATIC, MG, HS TROP #### [address] Eosinophils/100 WBC (Bld) 1.5 % Normal . [facility] Comment on above: Performed By: #### P T, CK, BNP, CBC, BMP, HEPATIC, MG, HS TROP #### [address] Erythrocyte distribution width (RBC) [Ratio] 15.3 % Normal 11.9-15.3 [facility] Comment on above: Performed By: #### P T, CK, BNP, CBC, BMP, HEPATIC, MG, HS TROP #### [address] Hematocrit (Bld) [Volume fraction] 36.2 % Normal 34.0-46.4 [facility] Comment on above: Performed By: #### P T, CK, BNP, CBC, BMP, HEPATIC, MG, HS TROP #### [address] Hemoglobin (Bld) [Mass/Vol] 12.2 g/dL Normal 11.8-15.4 [facility] Comment on above: Performed By: #### P T, CK, BNP, CBC, BMP, HEPATIC, MG, HS TROP #### [address] Lymphocytes (Bld) [#/Vol] 0.8 10*3/uL Low 1.00-4.8 [facility] Comment on above: Performed By: #### P T, CK, BNP, CBC, BMP, HEPATIC, MG, HS TROP #### [facility] [address] Lymphocytes/100 WBC (Bld) 9.8 % Normal . [facility] Comment on above: Performed By: #### P T, CK, BNP, CBC, BMP, HEPATIC, MG, HS TROP #### [address] MCH (RBC) [Entitic mass] 29.5 pg Normal 24.7-34.3 [facility] Comment on above: Performed By: #### P T, CK, BNP, CBC, BMP, HEPATIC, MG, HS TROP #### [address] MCV (RBC) [Entitic vol] 87.6 fL Normal 80-100 [facility] Comment on above: Performed By: #### P T, CK, BNP, CBC, BMP, HEPATIC, MG, HS TROP #### [address] Mean Corpuscular HGB Conc 33.7 g/dL Normal 32.0-35.0 [facility] Comment on above: Performed By: #### P T, CK, BNP, CBC, BMP, HEPATIC, MG, HS TROP #### [address] Monocytes (Bld) [#/Vol] 0.8 10*3/uL Normal 0.0-0.8 [facility] Comment on above: Performed By: #### P T, CK, BNP, CBC, BMP, HEPATIC, MG, HS TROP #### [address] Monocytes/100 WBC (Bld) 25.33 % High 0.00-20.00 [facility] Comment on above: Result Comment: For adults in ED, MDW > 20.0 may be associated with a higher risk of sepsis during the first 12 hrs of hospital admission Performed By: #### P T, CK, BNP, CBC, BMP, HEPATIC, MG, HS TROP #### [address] Monocytes/100 WBC (Bld) 10.7 % Normal . [facility] Comment on above: Performed By: #### P T, CK, BNP, CBC, BMP, HEPATIC, MG, HS TROP #### [address] Neutrophils (Bld) [#/Vol] 6.1 10*3/uL Normal 1.8-7.7 [facility] Comment on above: Performed By: #### P T, CK, BNP, CBC, BMP, HEPATIC, MG, HS TROP #### [address] Neutrophils/100 WBC (Bld) 77.1 % Normal . [facility] Comment on above: Performed By: #### P T, CK, BNP, CBC, BMP, HEPATIC, MG, HS TROP #### [address] NRBC% 0.1 /100{WBC} Normal 0-0.5 [facility] Comment on above: Performed By: #### P T, CK, BNP, CBC, BMP, HEPATIC, MG, HS TROP #### [address] Platelet mean volume (Bld) [Entitic vol] 9.0 fL Normal 6.3-10.7 [facility] Comment on above: Performed By: #### P T, CK, BNP, CBC, BMP, HEPATIC, MG, HS TROP #### [place] [address] [place] Platelets (Bld) [#/Vol] 142 10*3/uL Low 150-450 [facility] Comment on above: Performed By: #### P T, CK, BNP, CBC, BMP, HEPATIC, MG, HS TROP #### [place] [address] [place] RBC (Bld) [#/Vol] 4.13 10*6/uL Normal 3.60-5.00 [facility] Comment on above: Performed By: #### P T, CK, BNP, CBC, BMP, HEPATIC, MG, HS TROP #### [place] [id number] [place] WBC (Bld) [#/Vol] 7.9 10*3/uL Normal 3.8-11.6 [facility] Comment on above: Performed By: #### P T, CK, BNP, CBC, BMP, HEPATIC, MG, HS TROP #### [address] Creatinine [Mass/volume] in Serum or PlasmaOrdered By: Daniele Jane on 10-25-2024 Creatinine [Mass/Vol] Creatinine [Mass/v olume] in Serum or Plasma High 0.60-1.20 [facility] ECG 12 lead ECGon 10-25-2024 ECG 12 lead ECG [facility] Main [place] [address] [place] [address] Electrocardiograph Report Signed Patient: Joe Call MR#: [id number] 0 : 1945 Acct:[id number] Age/Sex: 79 / F ADM Date: 10/25/24 Loc: ER Room: Type: [facility] ER Attending Dr: Ordering Provider: Daniele [...] sinus arrhythmia Confirmed by Daniele Jane DO ([id number]) on 10/25/2024 2:01:48 PM Referred By: Electronically Signed By: Daniele Jane DO Transcribed By: MUS Signed By Daniele Jane DO 1401 Normal [facility] Eosinophils Auto (Bld) [#/Vo l]Ordered By: Daniele Jane on 10-25-2024 Eosinophils (Bld) [#/Vol] Automated eosinophil count 0.0-0.45 [facility] Eosinophils/100 WBC Auto (Bl d)Ordered By: Daniele Jane on 10-25-2024 Eosinophils/100 WBC (Bld) Automated eosinophil % . [facility] Erythrocyte distribution wid th Auto (RBC) [Ratio]Ordered By: Daniele Jane on 10-25-2024 Erythrocyte distribution width (RBC) [Ratio] Erythrocyte distribution width [Ratio] by Automated count 11.9-15.3 [facility] Glucose [Mass/volume] in Ser um or PlasmaOrdered By: Daniele Jane on 10-25-2024 Glucose [Mass/Vol] Glucose [Mass/volume ] in Serum or Plasma High 70-100 [facility] Comment on above: ADA recommended refe rence rangeRandom Glucose Reference Range is dependent on time and content of last meal. Glucose of more than 200 mg/dL in a nonstressed, ambulatory subject supports the diagnosis of Diabetes Mellitus. Hematocrit Auto (Bld) [Volum e fraction]Ordered By: Daniele Jane on 10-25-2024 Hematocrit (Bld) [Volume fraction] Hematocrit [Volume Fraction] of Blood by Automated count 34.0-46.4 [facility] Hemoglobin [Mass/volume] in BloodOrdered By: Daniele Jane on 10-25-2024 Hemoglobin (Bld) [Mass/Vol] Hemoglobin [Mass/volume] in Blood 11.8-15.4 [facility] INR in Platelet poor plasma by Coagulation assayOrdered By: Daniele Jane on 10-25-2024 INR Coag (PPP) [Relative time] INR in Platelet poor plasma by Coagulation assay [facility] Comment on above: INR Therapeutic [...] erythrocytes in Blood by Automated coun 3.8-11.6 [facility] Lymphocytes Auto (Bld) [#/Vo l]Ordered By: Daniele Jane on 10-25-2024 Lymphocytes (Bld) [#/Vol] Lymphocytes [#/volume] in Blood by Automated count Low 1.00-4.8 [facility] Lymphocytes/100 WBC Auto (Bl d)Ordered By: Daniele Jane on 10-25-2024 Lymphocytes/100 WBC (Bld) Lymphocytes/100 leukocytes in Blood by Automated count . [facility] MCH Auto (RBC) [Entitic mass ]Ordered By: Daniele Jane on 10-25-2024 MCH (RBC) [Entitic mass] MCH [Entitic mass] by Automated count 24.7-34.3 [facility] MCHC Auto (RBC) [Mass/Vol]Or dered By: Daniele Jane on 10-25-2024 MCHC (RBC) [Mass/Vol] MCHC [Mass/volume] by Automated count 32.0-35.0 [facility] MCV Auto (RBC) [Entitic vol] Ordered By: Daniele Jane on 10-25-2024 MCV (RBC) [Entitic vol] MCV [Entitic volume] by Automated count 80-100 [facility] Monocyte distribution width [Entitic volume] in Blood by AutomatedOrdered By: Daniele Jane on 10-25-2024 Monocyte distribution width Auto (Bld) [Entitic vol] Monocyte distribution width [Entitic volume] in Blood by Automated High 0.00-20.00 [facility] Comment on above: For adults in ED, MD W > 20.0 may be associated with a higher risk of sepsis during the first 12 hrs of hospital admission Monocytes Auto (Bld) [#/Vol] Ordered By: Daniele Jane on 10-25-2024 Monocytes (Bld) [#/Vol] Automated blood monocyte count 0.0-0.8 [facility] Monocytes/100 WBC Auto (Bld) Ordered By: Daniele Jane on 10-25-2024 Monocytes/100 WBC (Bld) Automated monocyte % . [facility] Natriuretic peptide B [Mass/ Vol]Ordered By: Daniele Jane on 10-25-2024 Natriuretic peptide B (Bld) [Mass/Vol] BNP ser/plas High 5-100 [facility] Neutrophils Auto (Bld) [#/Vo l]Ordered By: Daniele Jane on 10-25-2024 Neutrophils (Bld) [#/Vol] Neutrophils [#/volume] in Blood by Automated count 1.8-7.7 [facility] Neutrophils/100 WBC Auto (Bl d)Ordered By: Daniele Jane on 10-25-2024 Neutrophils/100 WBC (Bld) Automated neutrophil % . [facility] No Panel InformationOrdered By: Daniele Jane on 10-25-2024 Estimated GFR (CKD-EPI) 41.704 mL/Min [facility] Creatinine Clearance (Chem 46.58 [facility] Nucleated erythrocytes [Pres ence] in Blood by Automated countOrdered By: Daniele Jane on 10-25-2024 Nucleated RBC Auto Ql (Bld) Nucleated erythrocytes [Presence] in Blood by Automated count 0-0.5 [facility] Partial Thromboplastin Timeo n 10-25-2024 aPTT Coag (Bld) [Time] 28.6 s Normal 25.1-36.5 [facility] Comment on above: Result Comment: A he matocrit value greater than 55% may lead to inaccurate results in coagulation testing. Patients having hematocrit values >55% require a special collection tube for coagulation studies. Please contact the laboratory at [phone] for redraw instructions. PERFORMED BY: [place] [id number] PATHOLOGIST BUSINESS APPLICATIONS DEVELOPER MAY HYDE M.D. Performed By: #### P T, CK, BNP, CBC, BMP, HEPATIC, MG, HS TROP #### [facility] [address] [place] [address] [place] Platelet mean volume Auto (B ld) [Entitic vol]Ordered By: Daniele Jane on 10-25-2024 Platelet mean volume (Bld) [Entitic vol] Platelet mean volume [Entitic volume] in Blood by Automated count 6.3-10.7 [facility] Platelets Auto (Bld) [#/Vol] Ordered By: Daniele Jane on 10-25-2024 Platelets (Bld) [#/Vol] Platelets [#/volume] in Blood by Automated count Low 150-450 [facility] Potassium [Moles/volume] in Serum or PlasmaOrdered By: Daniele Jane on 10-25-2024 Potassium [Moles/Vol] Potassium [Moles/v olume] in Serum or Plasma 3.5-5.1 [facility] Prothrombin Time INRon 10-25 INR Coag (PPP) [Relative time] 1.2 {INR} Normal [facility] Comment on above: [...] valves: 3 - 4.5 Performed By: #### P T, CK, BNP, CBC, BMP, HEPATIC, MG, HS TROP #### [facility] [address] PT Coag (PPP) [Time] 13.5 s High 9.0-12.9 [facility] Comment on above: Result Comment: A he matocrit value greater than 55% may lead to inaccurate results in coagulation testing. Patients having hematocrit values >55% require a special collection tube for coagulation studies. Please contact the laboratory at [phone] for redraw instructions. Performed By: #### P T, CK, BNP, CBC, BMP, HEPATIC, MG, HS TROP #### [facility] [address] [place] [id number] [facility] Prothrombin time (PT)Ordered By: Daniele Jane on 10-25-2024 PT Coag (PPP) [Time] Prothrombin time (PT) High 9.0- 12.9 [facility] Comment on above: A hematocrit value g reater than 55% may lead to inaccurate results in coagulation testing. Patients having hematocrit values >55% require a special collection tube for coagulation studies. Please contact the laboratory at [phone] for redraw instructions. RBC Auto (Bld) [#/Vol]Ordere d By: Daniele Jane on 10-25-2024 RBC (Bld) [#/Vol] Erythrocytes [#/volu me] in Blood by Automated count 3.60-5.00 [facility] Respiratory specimen influen za A virus, influenza B virus, respiratory syncytical virOrdered By: Daniele Jane on 10-25-2024 SARS-CoV-2 (COVID-19) RNA FERN+probe Ql (Unsp spec) Respiratory specimen influenza A virus, influenza B virus, respiratory syncytical vir [facility] SARS-CoV-2 (COVID-19) RNA FERN+probe Ql (Unsp spec) Respiratory specimen influenza A virus, influenza B virus, respiratory syncytical vir [facility] Serum or plasma anion gap de terminationOrdered By: Daniele Jane on 10-25-2024 Anion gap [Moles/Vol] Serum or plasma an ion gap determination 6.0-15.0 [facility] Sodium [Moles/volume] in Ser um or PlasmaOrdered By: Daniele Jane on 10-25-2024 Sodium [Moles/Vol] Sodium [Moles/volume ] in Serum or Plasma Low 136-145 [facility] Troponin I High Sensitivityo n 10-25-2024 Troponin I High Sensitivity 14.6 pg/mL Normal 0.0-15.0 [facility] Comment on above: Result Comment: PERF ORMED BY: [place] [address] PATHOLOGIST BUSINESS APPLICATIONS DEVELOPER MAY HYDE M.D. Performed By: #### P T, CK, BNP, CBC, BMP, HEPATIC, MG, HS TROP #### [facility] [address] Troponin I.cardiac [Mass/vol ume] in Serum or Plasma by Detection limit <= 0.01 ng/Ordered By: Daniele Jane on 10-25-2024 Troponin I.cardiac DL <= 0.01 ng/mL [Mass/Vol] Troponin I.cardiac [Mass/volume] in Serum or Plasma by Detection limit <= 0.01 ng/ 0.0-15.0 [facility] Urea nitrogen [Mass/volume] in Serum or PlasmaOrdered By: Daniele Jane on 10-25-2024 Urea nitrogen [Mass/Vol] Urea nitrogen [Mass/volume] in Serum or Plasma High 7-25 [facility] WBC Auto (Bld) [#/Vol]Ordere d By: Daniele Jane on 10-25-2024 WBC (Bld) [#/Vol] Leukocytes [#/volume ] in Blood by Automated count 3.8-11.6 [facility] XR chest 1V portableon 10-25 XR chest 1V portable [facility] Main [place] [address] [place] [address] XRay Report Signed Patient: Joe Call MR#: [id number] 0 : 1945 Acct:[id number] Age/Sex: 79 / F ADM Date: 10/25/24 Loc: ER Room: Type: [facility] ER Attending Dr: Copies to: [...] Jarred Randolph M.D.10/25/2024 7:35 AM Dictation Location: [place] [address] Transcribed By: [facility] 10/25/24 0735 Dictated By: Jarred Randolph DO 10/25/24 0734 Signed By: 10/25/24 0735 Normal [facility] aPTT in Platelet poor plasma by Coagulation assayOrdered By: Daniele Jane on 10-25-2024 aPTT Coag (PPP) [Time] Activated partial thromboplastin time (aPTT) in platelet poor plasma by coagulation a 25.1-36.5 [facility] Comment on above: A hematocrit value g reater than 55% may lead to inaccurate results in coagulation testing. Patients having hematocrit values >55% require a special collection tube for coagulation studies. Please contact the laboratory at [phone] for redraw instructions. Appearance of UrineOrdered B y: Zhang Norwood on 10-22-2024 Appearance (U) Urine appearance Abnormal Clear [facility] Bacteria [Presence] in Urine by AutomatedOrdered By: Zhang Norwood on 10-22-2024 Bacteria Auto Ql (U) Bacteria [Presence] in Urine by Automated None Seen [facility] Bilirubin Test strip Ql (U)O rdered By: Zhang Norwood on 10-22-2024 Bilirubin Ql (U) Bilirubin.total [Presence] in Urine by Test strip Negative [facility] Calcium oxalate crystals [Pr esence] in Urine by Computer assisted methodOrdered By: Zhang Norwood on 10-22-2024 Calcium oxalate crystals Computer assisted Ql (U) Calcium oxalate crystals [Presence] in Urine by Computer assisted method [facility] Color Auto (U)Ordered By: Renetta Norwood on 10-22-2024 Color (U) Color of Urine by Auto Yellow Fi [facility] Dipstick and Microscopicon 1 12-23-2023 Appearance (U) Cloudy Critically abnormal Clear [facility] Comment on above: Order Comment: Name Collection Type:: Peacock Catheter Performed By: #### P T, CK, BNP, CBC, BMP, HEPATIC, MG, HS TROP #### [facility] [address] [place] [id number] [place] Bacteria,Urine None Seen Normal None Seen [facility] Comment on above: Order Comment: Name Collection Type:: Peacock Catheter Performed By: #### P T, CK, BNP, CBC, BMP, HEPATIC, MG, HS TROP #### [facility] [address] [place] [address] [place] Bilirubin,Urine Negative Normal Negative [facility] Comment on above: Order Comment: Name Collection Type:: Peacock Catheter Performed By: #### P T, CK, BNP, CBC, BMP, HEPATIC, MG, HS TROP #### [facility] [address] [place] [id number] [place] Calcium Oxalate Crystals,Urine Rare Normal [facility] Comment on above: Order Comment: Name Collection Type:: Peacock Catheter Performed By: #### P T, CK, BNP, CBC, BMP, HEPATIC, MG, HS TROP #### [address] Color (U) Yellow Normal Yellow [facility] Comment on above: Order Comment: Name Collection Type:: Peacock Catheter Performed By: #### P T, CK, BNP, CBC, BMP, HEPATIC, MG, HS TROP #### [address] Glucose Ql (U) 30 mg/dL High Normal [facility] Comment on above: Order Comment: Name Collection Type:: Peacock Catheter Performed By: #### P T, CK, BNP, CBC, BMP, HEPATIC, MG, HS TROP #### [address] Hyaline Casts,Urine 0 [LPF] Normal 0-8 [facility] Comment on above: Order Comment: Name Collection Type:: Pecaock Catheter Performed By: #### P T, CK, BNP, CBC, BMP, HEPATIC, MG, HS TROP #### [address] Ketones Ql (U) Negative Normal Negative [facility] Comment on above: Order Comment: Name Collection Type:: Peacock Catheter Performed By: #### P T, CK, BNP, CBC, BMP, HEPATIC, MG, HS TROP #### [address] Leukocyte esterase Test strip Ql (U) 1+ High Negative [facility] Comment on above: Order Comment: Name Collection Type:: Peacock Catheter Performed By: #### P T, CK, BNP, CBC, BMP, HEPATIC, MG, HS TROP #### [address] Mucus,Urine Rare Normal [facility] Comment on above: Order Comment: Name Collection Type:: Peacock Catheter Result Comment: PERF ORMED BY: [address] [address] PATHOLOGIST BUSINESS APPLICATIONS DEVELOPER MAY HYDE M.D. Performed By: #### P T, CK, BNP, CBC, BMP, HEPATIC, MG, HS TROP #### [address] Nitrite,Urine Negative Normal Negative [facility] Comment on above: Order Comment: Name Collection Type:: Peacock Catheter Performed By: #### P T, CK, BNP, CBC, BMP, HEPATIC, MG, HS TROP #### [address] Occult Blood,Urine 3+ High Negative [facility] Comment on above: Order Comment: Name Collection Type:: Peacock Catheter Result Comment: PERF ORMED BY: [place] [address] PATHOLOGIST BUSINESS APPLICATIONS DEVELOPER MAY HYDE M.D. Performed By: #### P T, CK, BNP, CBC, BMP, HEPATIC, MG, HS TROP #### [address] pH (U) 5.5 [pH] Normal 5.0-9.0 [facility] Comment on above: Order Comment: Name Collection Type:: Peacock Catheter Performed By: #### P T, CK, BNP, CBC, BMP, HEPATIC, MG, HS TROP #### [address] Protein (U) [Mass/Vol] 300 mg/dL High Negative [facility] Comment on above: Order Comment: Name Collection Type:: Peacock Catheter Performed By: #### P T, CK, BNP, CBC, BMP, HEPATIC, MG, HS TROP #### [address] RBC,Urine Innumerable High 0-4 [facility] Comment on above: Order Comment: Name Collection Type:: Peacock Catheter Performed By: #### P T, CK, BNP, CBC, BMP, HEPATIC, MG, HS TROP #### [address] [address] [place] Specificy [place],Urine 1.019 Normal 1.001-1.030 [facility] Comment on above: Order Comment: Name Collection Type:: Peacock Catheter Performed By: #### P T, CK, BNP, CBC, BMP, HEPATIC, MG, HS TROP #### [facility] [address] Squamous Epithelial Cell,Urine 1 [HPF] Normal 0-2 [facility] Comment on above: Order Comment: Name Collection Type:: Peacock Catheter Performed By: #### P T, CK, BNP, CBC, BMP, HEPATIC, MG, HS TROP #### [facility] [address] [place] [address] Urobilinogen,Urine Normal Normal Normal [facility] Comment on above: Order Comment: Name Collection Type:: Peacock Catheter Performed By: #### P T, CK, BNP, CBC, BMP, HEPATIC, MG, HS TROP #### [facility] [address] [place] [address] WBC,Urine 10 [HPF] High 0-4 [facility] Comment on above: Order Comment: Name Collection Type:: Peacock Catheter Performed By: #### P T, CK, BNP, CBC, BMP, HEPATIC, MG, HS TROP #### [facility] [address] [place] [address] Epithelial cells.squamous [# /area] in Urine sediment by Automated countOrdered By: Zhang Norwood on 10-22-2024 Epithelial cells.squamous Auto (Urine sed) [#/Area] Epithelial cells.squamous [#/area] in Urine sediment by Automated count 0-2 [facility] Erythrocytes [#/area] in Uri ne sediment by Automated countOrdered By: Zhang Norwood on 10-22-2024 RBC Auto (Urine sed) [#/Area] Erythrocytes [#/area] in Urine sediment by Automated count High 0-4 [facility] Glucose [Mass/volume] in Uri ne by Test stripOrdered By: Zhang Norwood on 10-22-2024 Glucose Test strip (U) [Mass/Vol] Glucose [Mass/volume] in Urine by Test strip High Normal [facility] Hemoglobin Test strip Ql (U) Ordered By: Zhang Norwood on 10-22-2024 Hemoglobin Ql (U) Hemoglobin [Presence ] in Urine by Test strip High Negative [facility] Hyaline casts [#/area] in Ur ine sediment by Automated countOrdered By: Zhang Norwodo on 10-22-2024 Hyaline casts Auto (Urine sed) [#/Area] Hyaline casts [#/area] in Urine sediment by Automated count 0-8 [facility] Ketones Test strip Ql (U)Ord ered By: Zhang Norwood on 10-22-2024 Ketones Ql (U) Ketones [Presence] i n Urine by Test strip Negative [facility] Leukocyte esterase [Presence ] in Urine by Test stripOrdered By: Zhang Norwood on 10-22-2024 Leukocyte esterase Test strip Ql (U) Leukocyte esterase [Presence] in Urine by Test strip High Negative [facility] Leukocytes [#/area] in Urine sediment by Automated countOrdered By: Zhang Norwood on 10-22-2024 WBC Auto (Urine sed) [#/Area] Leukocytes [#/area] in Urine sediment by Automated count High 0-4 [facility] Mucus [Presence] in Urine by AutomatedOrdered By: Zhang Norwood on 10-22-2024 Mucus Auto Ql (U) Mucus [Presence] in Urine by Automated [facility] Nitrite Test strip Ql (U)Ord ered By: Zhang Norwood on 10-22-2024 Nitrite Ql (U) Nitrite [Presence] i n Urine by Test strip Negative [facility] Protein Test strip (U) [Mass /Vol]Ordered By: Zhang Norwood on 10-22-2024 Protein (U) [Mass/Vol] Protein [Mass/vol ume] in Urine by Test strip High Negative [facility] Specific gravity Test strip (U) [Rel density]Ordered By: Zhang Norwood on 10-22-2024 Specific gravity (U) [Rel density] Specific gravity of Urine by Test strip 1.001-1.030 [facility] Urine Cultureon 10-22-2024 Bacteria identified Cx Nom (U) 15,000 colonies/ml mixed bacterial skin contaminants 2 Days PERFORMED BY: [place] [address] [place] [address] PATHOLOGIST BUSINESS APPLICATIONS DEVELOPER MAY HYDE M.D. Normal [facility] Comment on above: Performed By: #### P T, CK, BNP, CBC, BMP, HEPATIC, MG, HS TROP #### [address] [address] [facility] Urine cultureOrdered By: Hortensia Norwood on 10-22-2024 Bacteria identified Cx Nom (U) Urine culture [facility] Bacteria identified Cx Nom (U) Urine culture [facility] Urobilinogen Test strip (U) [Mass/Vol]Ordered By: Zhang Norwood on 10-22-2024 Urobilinogen (U) [Mass/Vol] Urobilinogen [Mass/volume] in Urine by Test strip Normal [facility] pH Test strip (U)Ordered By: Zhang Norwood on 10-22-2024 pH (U) pH of Urine by Test strip 5.0-9.0 [facility] A1C with Estimated Average G jade 10-20-2024 Glucose [Mass/Vol] 292 mg/dL Normal [facility] Comment on above: Result Comment: PERF ORMED BY: [address] [address] PATHOLOGIST BUSINESS APPLICATIONS DEVELOPER MAY HYDE M.D. Performed By: #### P T, CK, BNP, CBC, BMP, HEPATIC, MG, HS TROP #### [place] [id number] [facility] HbA1c (Bld) [Mass fraction] 11.8 % High 4.3-5.6 [facility] Comment on above: Result Comment: Incr eased risk for diabetes: 5.7 - 6.4 diabetes: >6.4 glycemic control for adults with diabetes: <7.0 Performed By: #### P T, CK, BNP, CBC, BMP, HEPATIC, MG, HS TROP #### [place] [id number] [facility] Basic Metabolic Panelon Anion gap [Moles/Vol] Not performed Normal 6.0-15.0 [facility] Comment on above: Performed By: #### P T, CK, BNP, CBC, BMP, HEPATIC, MG, HS TROP #### [address] Calcium [Mass/Vol] 8.7 mg/dL Normal 8.6-10.3 [facility] Comment on above: Performed By: #### P T, CK, BNP, CBC, BMP, HEPATIC, MG, HS TROP #### [address] Chloride [Moles/Vol] 97 mmol/L Low 98-107 [facility] Comment on above: Performed By: #### P T, CK, BNP, CBC, BMP, HEPATIC, MG, HS TROP #### [address] CO2 [Moles/Vol] 26.0 mmol/L Normal 21.0-31.0 [facility] Comment on above: Performed By: #### P T, CK, BNP, CBC, BMP, HEPATIC, MG, HS TROP #### [address] Creatinine [Mass/Vol] 3.06 mg/dL High 0.60-1.20 [facility] Comment on above: Performed By: #### P T, CK, BNP, CBC, BMP, HEPATIC, MG, HS TROP #### [address] Creatinine Clr Calc Pharmacy 18.79 Normal [facility] Comment on above: Performed By: #### P T, CK, BNP, CBC, BMP, HEPATIC, MG, HS TROP #### [address] Estimated GFR 15.067 mL/Min Normal [facility] Comment on above: Performed By: #### P T, CK, BNP, CBC, BMP, HEPATIC, MG, HS TROP #### [address] Glucose [Mass/Vol] 159 mg/dL Significant change up 70-100 [facility] Comment on above: Result Comment: [facility] Glucose Reference Range is dependent on time and content of last meal. Glucose of more than 200 mg/dL in a nonstressed, ambulatory subject supports the diagnosis of Diabetes Mellitus. ADA recommended reference range Performed By: #### P T, CK, BNP, CBC, BMP, HEPATIC, MG, HS TROP #### [facility] [address] Potassium Normal 3.5-5.1 [facility] Comment on above: Result Comment: Spec imen hemolyzed, redraw requested Performed By: #### P T, CK, BNP, CBC, BMP, HEPATIC, MG, HS TROP #### [facility] [address] Sodium Normal 136-145 [facility] Comment on above: Result Comment: Spec imen hemolyzed, redraw requested Performed By: #### P T, CK, BNP, CBC, BMP, HEPATIC, MG, HS TROP #### [facility] [address] Urea nitrogen [Mass/Vol] 91 mg/dL High 7-25 [facility] Comment on above: Performed By: #### P T, CK, BNP, CBC, BMP, HEPATIC, MG, HS TROP #### [facility] [address] Blood estimated average gluc ose determination by estimation from glycated hemoglobinOrdered By: Kavin Escobar on 10-20-2024 Average glucose Estimated from glycated hemoglobin (Bld) [Mass/Vol] Glucose mean value [Mass/volume] in Blood Estimated from glycated hemoglobin [facility] Calcium [Mass/volume] in Ser um or PlasmaOrdered By: Mauri Chavira on 10-20-2024 Calcium [Mass/Vol] Calcium [Mass/volume ] in Serum or Plasma 8.6-10.3 [facility] Carbon dioxide, total [Moles /volume] in Serum or PlasmaOrdered By: Mauri Chavira on 10-20-2024 CO2 [Moles/Vol] Carbon dioxide, tota l [Moles/volume] in Serum or Plasma 21.0-31.0 [facility] Chloride [Moles/volume] in S oziel or PlasmaOrdered By: Mauri Chavira on 10-20-2024 Chloride [Moles/Vol] Chloride [Moles/vol ume] in Serum or Plasma Low 98-107 [facility] Creatinine [Mass/volume] in Serum or PlasmaOrdered By: Mauri Chavira on 10-20-2024 Creatinine [Mass/Vol] Creatinine [Mass/v olume] in Serum or Plasma High 0.60-1.20 [facility] Glucose Glucometer (BldC) [M ass/Vol]Ordered By: Kavin Escobar on 10-20-2024 Glucose [Mass/Vol] Capillary blood gluc ose measurement by glucometer (mass/volume) [facility] Comment on above: Random Glucose Refer ence Range is dependent on time and content of last meal. Glucose of more than 200 mg/dL in a nonstressed, ambulatory subject supports the diagnosis of Diabetes Mellitus. Glucose Poct Glucometerson 1 12-21-2023 Glucose [Mass/Vol] 209 mg/dL Normal [facility] Comment on above: Result Comment: [place] Glucose Reference Range is dependent on time and content of last meal. Glucose of more than 200 mg/dL in a nonstressed, ambulatory subject supports the diagnosis of Diabetes Mellitus. PERFORMED BY: [place] [address] PATHOLOGIST BUSINESS APPLICATIONS DEVELOPER MAY HYDE M.D. Performed By: #### P T, CK, BNP, CBC, BMP, HEPATIC, MG, HS TROP #### [address] Glucose [Mass/Vol] 164 mg/dL Normal [facility] Comment on above: Result Comment: [place] Glucose Reference Range is dependent on time and content of last meal. Glucose of more than 200 mg/dL in a nonstressed, ambulatory subject supports the diagnosis of Diabetes Mellitus. PERFORMED BY: [place] [id number] PATHOLOGIST BUSINESS APPLICATIONS DEVELOPER MAY HYDE M.D. Performed By: #### P T, CK, BNP, CBC, BMP, HEPATIC, MG, HS TROP #### [address] [place] [address] [facility] Glucose [Mass/volume] in Ser um or PlasmaOrdered By: Mauri Chavira on 10-20-2024 Glucose [Mass/Vol] Glucose [Mass/volume ] in Serum or Plasma Invalid Interpretation Code 70-100 [facility] Comment on above: [place]: [id number] on [id number] recommended reference rangeRandom Glucose Reference Range is dependent on time and content of last meal. Glucose of more than 200 mg/dL in a nonstressed, ambulatory subject supports the diagnosis of Diabetes Mellitus. Hemoglobin A1c/Hemoglobin.to vinicio in BloodOrdered By: Kavin Escobar on 10-20-2024 HbA1c (Bld) [Mass fraction] Hemoglobin A1c percentage High 4.3-5.6 [facility] Comment on above: Increased risk for d iabetes: 5.7 - 6.4diabetes: >6.4glycemic control for adults with diabetes: <7.0 Magnesiumon 10-20-2024 Magnesium Normal 1.9-2.7 [facility] Comment on above: Result Comment: Spec imen hemolyzed, redraw requested PERFORMED BY: [address] [place] [address] PATHOLOGIST BUSINESS APPLICATIONS DEVELOPER MAY HYDE M.D. Performed By: #### P T, CK, BNP, CBC, BMP, HEPATIC, MG, HS TROP #### [facility] [address] [place], [place] [id number] [facility] Magnesium [Mass/volume] in S oziel or PlasmaOrdered By: Mauri Chavira on 10-20-2024 Magnesium [Mass/Vol] Magnesium [Mass/vol ume] in Serum or Plasma 1.9-2.7 [facility] No Panel InformationOrdered By: Mauri Chavira on 10-20-2024 Estimated GFR (CKD-EPI) 15.067 mL/Min [facility] Creatinine Clearance (Chem 18.79 [facility] Potassium [Moles/volume] in Serum or PlasmaOrdered By: Mauri Chavira on 10-20-2024 Potassium [Moles/Vol] Potassium [Moles/v olume] in Serum or Plasma 3.5-5.1 [facility] Redraw Magnesiumon 4 Magnesium [Mass/Vol] 1.9 mg/dL Normal 1.9-2.7 [facility] Comment on above: Result Comment: PERF ORMED BY: [place] [address] PATHOLOGIST BUSINESS APPLICATIONS DEVELOPER MAY HYDE M.D. Performed By: #### P T, CK, BNP, CBC, BMP, HEPATIC, MG, HS TROP #### [address] Redraw Magnesium Normal 1.9-2.7 [facility] Comment on above: Result Comment: Spec imen hemolyzed, redraw requested PERFORMED BY: [place] [address] PATHOLOGIST BUSINESS APPLICATIONS DEVELOPER MAY HYDE M.D. Performed By: #### P T, CK, BNP, CBC, BMP, HEPATIC, MG, HS TROP #### [address] Redraw Potassiumon 4 Potassium [Moles/Vol] 4.0 mmol/L Normal 3.5-5.1 [facility] Comment on above: Performed By: #### P T, CK, BNP, CBC, BMP, HEPATIC, MG, HS TROP #### [address] Redraw Potassium Normal 3.5-5.1 [facility] Comment on above: Result Comment: Spec imen hemolyzed, redraw requested Performed By: #### P T, CK, BNP, CBC, BMP, HEPATIC, MG, HS TROP #### [address] Redraw Sodiumon 4 Sodium [Moles/Vol] 134 mmol/L Low 136-145 [facility] Comment on above: Performed By: #### P T, CK, BNP, CBC, BMP, HEPATIC, MG, HS TROP #### [place] [address] [address] Serum or plasma anion gap de terminationOrdered By: Mauri Chavira on 10-20-2024 Anion gap [Moles/Vol] Serum or plasma an ion gap determination [facility] Comment on above: Test not performed Sodium [Moles/volume] in Ser um or PlasmaOrdered By: Mauri Chavira on 10-20-2024 Sodium [Moles/Vol] Sodium [Moles/volume ] in Serum or Plasma Low 136-145 [facility] Urea nitrogen [Mass/volume] in Serum or PlasmaOrdered By: Mauri Chavira on 10-20-2024 Urea nitrogen [Mass/Vol] Urea nitrogen [Mass/volume] in Serum or Plasma High 7-25 [facility] Basic Metabolic Panelon 12-0 Anion gap [Moles/Vol] 14.7 mmol/L Normal 6.0-15.0 [facility] Comment on above: Performed By: #### P T, CK, BNP, CBC, BMP, HEPATIC, MG, HS TROP #### [facility] [address] Calcium [Mass/Vol] 9.1 mg/dL Normal 8.6-10.3 [facility] Comment on above: Performed By: #### P T, CK, BNP, CBC, BMP, HEPATIC, MG, HS TROP #### [facility] [address] [place] [id number] [facility] Chloride [Moles/Vol] 95 mmol/L Low 98-107 [facility] Comment on above: Performed By: #### P T, CK, BNP, CBC, BMP, HEPATIC, MG, HS TROP #### [facility] [address] [place] [id number] [place] CO2 [Moles/Vol] 28.6 mmol/L Normal 21.0-31.0 [facility] Comment on above: Performed By: #### P T, CK, BNP, CBC, BMP, HEPATIC, MG, HS TROP #### [facility] [address] [place] [address] [place] Creatinine [Mass/Vol] 2.71 mg/dL Significan t change up 0.60-1.20 [facility] Comment on above: Performed By: #### P T, CK, BNP, CBC, BMP, HEPATIC, MG, HS TROP #### [facility] [address] Creatinine Clr Calc Pharmacy 21.49 Normal [facility] Comment on above: Performed By: #### P T, CK, BNP, CBC, BMP, HEPATIC, MG, HS TROP #### [facility] [address] Estimated GFR 17.432 mL/Min Normal [facility] Comment on above: Performed By: #### P T, CK, BNP, CBC, BMP, HEPATIC, MG, HS TROP #### [address] Glucose [Mass/Vol] 288 mg/dL High 70-100 [facility] Comment on above: Result Comment: [facility] Glucose Reference Range is dependent on time and content of last meal. Glucose of more than 200 mg/dL in a nonstressed, ambulatory subject supports the diagnosis of Diabetes Mellitus. ADA recommended reference range Performed By: #### P T, CK, BNP, CBC, BMP, HEPATIC, MG, HS TROP #### [address] Potassium [Moles/Vol] 4.3 mmol/L Normal 3.5-5.1 [facility] Comment on above: Performed By: #### P T, CK, BNP, CBC, BMP, HEPATIC, MG, HS TROP #### [facility] [address] Sodium [Moles/Vol] 134 mmol/L Low 136-145 [facility] Comment on above: Performed By: #### P T, CK, BNP, CBC, BMP, HEPATIC, MG, HS TROP #### [address] Urea nitrogen [Mass/Vol] 77 mg/dL High 7-25 [facility] Comment on above: Performed By: #### P T, CK, BNP, CBC, BMP, HEPATIC, MG, HS TROP #### [place] [id number] [facility] Glucose Poct Glucometerson 1 12-20-2023 Glucose [Mass/Vol] 222 mg/dL Normal [facility] Comment on above: Result Comment: [place] [facility] Glucose Reference Range is dependent on time and content of last meal. Glucose of more than 200 mg/dL in a nonstressed, ambulatory subject supports the diagnosis of Diabetes Mellitus. PERFORMED BY: [place] [address] PATHOLOGIST BUSINESS APPLICATIONS DEVELOPER MAY HYDE M.D. Performed By: #### P T, CK, BNP, CBC, BMP, HEPATIC, MG, HS TROP #### [address] Glucose [Mass/Vol] 306 mg/dL Normal [facility] Comment on above: Result Comment: [place] om Glucose Reference Range is dependent on time and content of last meal. Glucose of more than 200 mg/dL in a nonstressed, ambulatory subject supports the diagnosis of Diabetes Mellitus. PERFORMED BY: [place] [address] PATHOLOGIST BUSINESS APPLICATIONS DEVELOPER MAY HYDE M.D. Performed By: #### P T, CK, BNP, CBC, BMP, HEPATIC, MG, HS TROP #### [address] [address] [place] Glucose [Mass/Vol] 342 mg/dL Normal [facility] Comment on above: Result Comment: [place] om Glucose Reference Range is dependent on time and content of last meal. Glucose of more than 200 mg/dL in a nonstressed, ambulatory subject supports the diagnosis of Diabetes Mellitus. PERFORMED BY: [place] [address] PATHOLOGIST BUSINESS APPLICATIONS DEVELOPER MAY HYDE M.D. Performed By: #### P T, CK, BNP, CBC, BMP, HEPATIC, MG, HS TROP #### [place] [address] [place] Glucose [Mass/Vol] 267 mg/dL Normal [facility] Comment on above: Result Comment: [facility] Glucose Reference Range is dependent on time and content of last meal. Glucose of more than 200 mg/dL in a nonstressed, ambulatory subject supports the diagnosis of Diabetes Mellitus. PERFORMED BY: [place] [address] PATHOLOGIST BUSINESS APPLICATIONS DEVELOPER MAY HYDE M.D. Performed By: #### P T, CK, BNP, CBC, BMP, HEPATIC, MG, HS TROP #### [address] Magnesiumon 10-19-2024 Magnesium [Mass/Vol] 2.0 mg/dL Normal 1.9-2.7 [facility] Comment on above: Result Comment: PERF ORMED BY: [place] [address] PATHOLOGIST BUSINESS APPLICATIONS DEVELOPER MAY HYDE M.D. Performed By: #### P T, CK, BNP, CBC, BMP, HEPATIC, MG, HS TROP #### [address] Basic Metabolic Panelon 12 Anion gap [Moles/Vol] 15.4 mmol/L High 6.0-15.0 [facility] Comment on above: Order Comment: REY PARKER NOTIFIED. SMB 0442. Performed By: #### P T, CK, BNP, CBC, BMP, HEPATIC, MG, HS TROP #### [address] Calcium [Mass/Vol] 9.5 mg/dL Normal 8.6-10.3 [facility] Comment on above: Order Comment: REY PARKER NOTIFIED. SMB 0442. Performed By: #### P T, CK, BNP, CBC, BMP, HEPATIC, MG, HS TROP #### [address] Chloride [Moles/Vol] 97 mmol/L Low 98-107 [facility] Comment on above: Order Comment: REY PARKER NOTIFIED. SMB 0442. Performed By: #### P T, CK, BNP, CBC, BMP, HEPATIC, MG, HS TROP #### [address] CO2 [Moles/Vol] 29.7 mmol/L Normal 21.0-31.0 [facility] Comment on above: Order Comment: REY PARKER NOTIFIED. SMB 0442. Performed By: #### P T, CK, BNP, CBC, BMP, HEPATIC, MG, HS TROP #### [address] Creatinine [Mass/Vol] 1.81 mg/dL High 0.60-1.20 [facility] Comment on above: Order Comment: REY PARKER NOTIFIED. SMB 0442. Performed By: #### P T, CK, BNP, CBC, BMP, HEPATIC, MG, HS TROP #### [address] Creatinine Clr Calc Pharmacy 32.95 Normal [facility] Comment on above: Order Comment: REY PARKER NOTIFIED. SMB 0442. Performed By: #### P T, CK, BNP, CBC, BMP, HEPATIC, MG, HS TROP #### [address] Estimated GFR 28.294 mL/Min Normal [facility] Comment on above: Order Comment: REY PARKER NOTIFIED. SMB 0442. Performed By: #### P T, CK, BNP, CBC, BMP, HEPATIC, MG, HS TROP #### [address] Glucose [Mass/Vol] 220 mg/dL High 70-100 [facility] Comment on above: Order Comment: REY PARKER NOTIFIED. SMB 0442. Result Comment: [place] Glucose Reference Range is dependent on time and content of last meal. Glucose of more than 200 mg/dL in a nonstressed, ambulatory subject supports the diagnosis of Diabetes Mellitus. ADA recommended reference range Performed By: #### P T, CK, BNP, CBC, BMP, HEPATIC, MG, HS TROP #### [address] Potassium [Moles/Vol] 4.1 mmol/L Normal 3.5-5.1 [facility] Comment on above: Order Comment: REY PARKER NOTIFIED. SMB 0442. Performed By: #### P T, CK, BNP, CBC, BMP, HEPATIC, MG, HS TROP #### [address] Sodium [Moles/Vol] 138 mmol/L Normal 136-145 [facility] Comment on above: Order Comment: REY PARKER NOTIFIED. SMB 0442. Performed By: #### P T, CK, BNP, CBC, BMP, HEPATIC, MG, HS TROP #### [address] Urea nitrogen [Mass/Vol] 66 mg/dL High 7-25 [facility] Comment on above: Order Comment: REY PARKER NOTIFIED. SMB 0442. Performed By: #### P T, CK, BNP, CBC, BMP, HEPATIC, MG, HS TROP #### [address] Free T4 (Free Thyroxine)on 12-19-2023 Free T4 [Mass/Vol] 1.26 ng/dL High 0.61-1.12 [facility] Comment on above: Order Comment: REY PARKER NOTIFIED. SMB 0442. Performed By: #### P T, CK, BNP, CBC, BMP, HEPATIC, MG, HS TROP #### [address] Glucose Poct Glucometerson 12-19-2023 Glucose [Mass/Vol] 329 mg/dL Normal [facility] Comment on above: Result Comment: [facility] Glucose Reference Range is dependent on time and content of last meal. Glucose of more than 200 mg/dL in a nonstressed, ambulatory subject supports the diagnosis of Diabetes Mellitus. PERFORMED BY: [place] [address] PATHOLOGIST BUSINESS APPLICATIONS DEVELOPER MAY HYDE M.D. Performed By: #### P T, CK, BNP, CBC, BMP, HEPATIC, MG, HS TROP #### [address] Glucose [Mass/Vol] 210 mg/dL Normal [facility] Comment on above: Result Comment: [place] Glucose Reference Range is dependent on time and content of last meal. Glucose of more than 200 mg/dL in a nonstressed, ambulatory subject supports the diagnosis of Diabetes Mellitus. PERFORMED BY: [place] [address] PATHOLOGIST BUSINESS APPLICATIONS DEVELOPER MAY HYDE M.D. Performed By: #### P T, CK, BNP, CBC, BMP, HEPATIC, MG, HS TROP #### [address] Glucose [Mass/Vol] 251 mg/dL Normal [facility] Comment on above: Result Comment: [place] Glucose Reference Range is dependent on time and content of last meal. Glucose of more than 200 mg/dL in a nonstressed, ambulatory subject supports the diagnosis of Diabetes Mellitus. PERFORMED BY: [place] [address] PATHOLOGIST BUSINESS APPLICATIONS DEVELOPER MAY HYDE M.D. Performed By: #### P T, CK, BNP, CBC, BMP, HEPATIC, MG, HS TROP #### [address] Glucose [Mass/Vol] 207 mg/dL Normal [facility] Comment on above: Result Comment: [place] Glucose Reference Range is dependent on time and content of last meal. Glucose of more than 200 mg/dL in a nonstressed, ambulatory subject supports the diagnosis of Diabetes Mellitus. PERFORMED BY: [place] [address] PATHOLOGIST BUSINESS APPLICATIONS DEVELOPER MAY HYDE M.D. Performed By: #### P T, CK, BNP, CBC, BMP, HEPATIC, MG, HS TROP #### [place] [address] [place] Glucose [Mass/Vol] 188 mg/dL Normal [facility] Comment on above: Result Comment: [facility] Glucose Reference Range is dependent on time and content of last meal. Glucose of more than 200 mg/dL in a nonstressed, ambulatory subject supports the diagnosis of Diabetes Mellitus. PERFORMED BY: [place] [address] PATHOLOGIST BUSINESS APPLICATIONS DEVELOPER MAY HYDE M.D. Performed By: #### P T, CK, BNP, CBC, BMP, HEPATIC, MG, HS TROP #### [facility] [address] [place] [address] Magnesiumon 10-18-2024 Magnesium [Mass/Vol] 2.1 mg/dL Normal 1.9-2.7 [facility] Comment on above: Order Comment: REY PARKER NOTIFIED. SMB 0442. Performed By: #### P T, CK, BNP, CBC, BMP, HEPATIC, MG, HS TROP #### [address] Serum or plasma thyroperoxid ase antibody assay (units/volume)Ordered By: Mauri Chavira on 10-18-2024 TPO Ab Qn Serum or plasma thyroperoxidase antibody assay (units/volume) 0-34 [facility] Comment on above: Performed at: [facility] [address] [id number] Director: Dimitri Landis PhD, Phone: [phone] Thyroid Peroxidase Antibodie son 10-18-2024 Thyroid Peroxidase Antibodies <9 Normal 0-34 [facility] Comment on above: Order Comment: REY PARKER NOTIFIED. SMB 0442. Result Comment: Perf ormed at: [facility] [address] [id number] [employer] Consultant: Dimitri Landis PhD, Phone: [phone] PERFORMED BY: [place] [address] PATHOLOGIST BUSINESS APPLICATIONS DEVELOPER MAY HYDE M.D. Performed By: #### P T, CK, BNP, CBC, BMP, HEPATIC, MG, HS TROP #### [facility] [address] [id number] [facility] Thyroid Stimulating Hormoneo n 10-18-2024 TSH Qn 1.86 m[IU]/L Normal 0.45-5.33 [facility] Comment on above: Order Comment: REY PARKER NOTIFIED. SMB [id number]. Result Comment: PERF ORMED BY: [address] [place] [address] PATHOLOGIST BUSINESS APPLICATIONS DEVELOPER MAY HYDE M.D. Performed By: #### P T, CK, BNP, CBC, BMP, HEPATIC, MG, HS TROP #### [facility] [address] Thyrotropin [Units/volume] i n Serum or PlasmaOrdered By: Mauri Chavira on 10-18-2024 TSH Qn Thyrotropin [Units/volume] in Serum or Plasma 0.45-5.33 [facility] Thyroxine (T4) free [Mass/vo lume] in Serum or PlasmaOrdered By: Mauri Chavira on 10-18-2024 Free T4 [Mass/Vol] Thyroxine (T4) free [Mass/volume] in Serum or Plasma High 0.61-1.12 [facility] Alanine aminotransferase [En zymatic activity/volume] in Serum or PlasmaOrdered By: Mauri Chavira on 10-17-2024 ALT [Catalytic activity/Vol] Alanine aminotransferase [Enzymatic activity/volume] in Serum or Plasma 7-52 [facility] Albumin [Mass/volume] in Ser um or Plasma by Bromocresol green (BCG) dye binding methoOrdered By: Mauri Chavira on 10-17-2024 Albumin BCG dye [Mass/Vol] Albumin [Mass/volume] in Serum or Plasma by Bromocresol green (BCG) dye binding metho 3.5-5.7 [facility] Alkaline phosphatase [Enzyma tic activity/volume] in Serum or PlasmaOrdered By: Mauri Chavira on 10-17-2024 ALP [Catalytic activity/Vol] Alkaline phosphatase [Enzymatic activity/volume] in Serum or Plasma 34-104 [facility] Aspartate aminotransferase [ Enzymatic activity/volume] in Serum or PlasmaOrdered By: Mauri Chavira on 10-17-2024 AST [Catalytic activity/Vol] Aspartate aminotransferase [Enzymatic activity/volume] in Serum or Plasma 13-39 [facility] Basophils Auto (Bld) [#/Vol] Ordered By: Mauri Chavira on 10-17-2024 Basophils (Bld) [#/Vol] Automated basophil count 0.0-0.2 [facility] Basophils/100 WBC Auto (Bld) Ordered By: Mauri Chavira on 10-17-2024 Basophils/100 WBC (Bld) Automated basophil % . [facility] Bilirubin.total [Mass/volume ] in Serum or PlasmaOrdered By: Mauri Chavira on 10-17-2024 Bilirubin [Mass/Vol] Bilirubin.total [Mass/volume] in Serum or Plasma 0.3-1.0 [facility] Complete Blood Count Auto Di ffon 10-17-2024 Basophils (Bld) [#/Vol] 0.1 10*3/uL Normal 0.0-0.2 [facility] Comment on above: Result Comment: PERF ORMED BY: [address] [place] [address] PATHOLOGIST BUSINESS APPLICATIONS DEVELOPER MAY HYDE M.D. Performed By: #### P T, CK, BNP, CBC, BMP, HEPATIC, MG, HS TROP #### [facility] [address] Basophils/100 WBC (Bld) 0.8 % Normal . [facility] Comment on above: Performed By: #### P T, CK, BNP, CBC, BMP, HEPATIC, MG, HS TROP #### [facility] [address] [place] [address] [place] Eosinophils (Bld) [#/Vol] 0.1 10*3/uL Normal 0.0-0.45 [facility] Comment on above: Performed By: #### P T, CK, BNP, CBC, BMP, HEPATIC, MG, HS TROP #### [facility] [address] [place] [address] [place] Eosinophils/100 WBC (Bld) 0.7 % Normal . [facility] Comment on above: Performed By: #### P T, CK, BNP, CBC, BMP, HEPATIC, MG, HS TROP #### [address] Erythrocyte distribution width (RBC) [Ratio] 15.4 % High 11.9-15.3 [facility] Comment on above: Performed By: #### P T, CK, BNP, CBC, BMP, HEPATIC, MG, HS TROP #### [address] Hematocrit (Bld) [Volume fraction] 40.4 % Normal 34.0-46.4 [facility] Comment on above: Performed By: #### P T, CK, BNP, CBC, BMP, HEPATIC, MG, HS TROP #### [address] Hemoglobin (Bld) [Mass/Vol] 13.3 g/dL Normal 11.8-15.4 [facility] Comment on above: Performed By: #### P T, CK, BNP, CBC, BMP, HEPATIC, MG, HS TROP #### [address] Lymphocytes (Bld) [#/Vol] 1.4 10*3/uL Normal 1.00-4.8 [facility] Comment on above: Performed By: #### P T, CK, BNP, CBC, BMP, HEPATIC, MG, HS TROP #### [address] Lymphocytes/100 WBC (Bld) 15.2 % Normal . [facility] Comment on above: Performed By: #### P T, CK, BNP, CBC, BMP, HEPATIC, MG, HS TROP #### [address] MCH (RBC) [Entitic mass] 29.3 pg Normal 24.7-34.3 [facility] Comment on above: Performed By: #### P T, CK, BNP, CBC, BMP, HEPATIC, MG, HS TROP #### [address] MCV (RBC) [Entitic vol] 88.8 fL Normal 80-100 [facility] Comment on above: Performed By: #### P T, CK, BNP, CBC, BMP, HEPATIC, MG, HS TROP #### [address] Mean Corpuscular HGB Conc 33.0 g/dL Normal 32.0-35.0 [facility] Comment on above: Performed By: #### P T, CK, BNP, CBC, BMP, HEPATIC, MG, HS TROP #### [address] Monocytes (Bld) [#/Vol] 0.7 10*3/uL Normal 0.0-0.8 [facility] Comment on above: Performed By: #### P T, CK, BNP, CBC, BMP, HEPATIC, MG, HS TROP #### [address] Monocytes/100 WBC (Bld) 7.2 % Normal . [facility] Comment on above: Performed By: #### P T, CK, BNP, CBC, BMP, HEPATIC, MG, HS TROP #### [address] Neutrophils (Bld) [#/Vol] 7.0 10*3/uL Normal 1.8-7.7 [facility] Comment on above: Performed By: #### P T, CK, BNP, CBC, BMP, HEPATIC, MG, HS TROP #### [address] Neutrophils/100 WBC (Bld) 76.1 % Normal . [facility] Comment on above: Performed By: #### P T, CK, BNP, CBC, BMP, HEPATIC, MG, HS TROP #### [address] NRBC% 0.0 /100{WBC} Normal 0-0.5 [facility] Comment on above: Performed By: #### P T, CK, BNP, CBC, BMP, HEPATIC, MG, HS TROP #### [address] Platelet mean volume (Bld) [Entitic vol] 9.5 fL Normal 6.3-10.7 [facility] Comment on above: Performed By: #### P T, CK, BNP, CBC, BMP, HEPATIC, MG, HS TROP #### [address] Platelets (Bld) [#/Vol] 183 10*3/uL Normal 150-450 [facility] Comment on above: Performed By: #### P T, CK, BNP, CBC, BMP, HEPATIC, MG, HS TROP #### [address] RBC (Bld) [#/Vol] 4.55 10*6/uL Normal 3.60-5.00 [facility] Comment on above: Performed By: #### P T, CK, BNP, CBC, BMP, HEPATIC, MG, HS TROP #### [address] WBC (Bld) [#/Vol] 9.2 10*3/uL Normal 3.8-11.6 [facility] Comment on above: Performed By: #### P T, CK, BNP, CBC, BMP, HEPATIC, MG, HS TROP #### [address] Comprehensive Metabolic Pane daniele 10-17-2024 Albumin [Mass/Vol] 3.5 g/dL Normal 3.5-5.7 [facility] Comment on above: Performed By: #### P T, CK, BNP, CBC, BMP, HEPATIC, MG, HS TROP #### [address] Albumin/Globulin [Mass ratio] 0.9 {ratio} Normal [facility] Comment on above: Performed By: #### P T, CK, BNP, CBC, BMP, HEPATIC, MG, HS TROP #### [address] ALP [Catalytic activity/Vol] 99 U/L Normal 34-104 [facility] Comment on above: Performed By: #### P T, CK, BNP, CBC, BMP, HEPATIC, MG, HS TROP #### [address] ALT [Catalytic activity/Vol] 42 U/L Normal 7-52 [facility] Comment on above: Performed By: #### P T, CK, BNP, CBC, BMP, HEPATIC, MG, HS TROP #### [address] Anion gap [Moles/Vol] 14.7 mmol/L Normal 6.0-15.0 [facility] Comment on above: Performed By: #### P T, CK, BNP, CBC, BMP, HEPATIC, MG, HS TROP #### [address] AST [Catalytic activity/Vol] 35 U/L Normal 13-39 [facility] Comment on above: Performed By: #### P T, CK, BNP, CBC, BMP, HEPATIC, MG, HS TROP #### [address] Bilirubin [Mass/Vol] 0.6 mg/dL Normal 0.3-1.0 [facility] Comment on above: Performed By: #### P T, CK, BNP, CBC, BMP, HEPATIC, MG, HS TROP #### [address] Calcium [Mass/Vol] 9.6 mg/dL Normal 8.6-10.3 [facility] Comment on above: Performed By: #### P T, CK, BNP, CBC, BMP, HEPATIC, MG, HS TROP #### [place] [address] [place] Chloride [Moles/Vol] 99 mmol/L Normal 98-107 [facility] Comment on above: Performed By: #### P T, CK, BNP, CBC, BMP, HEPATIC, MG, HS TROP #### [place] [address] [place] CO2 [Moles/Vol] 25.3 mmol/L Normal 21.0-31.0 [facility] Comment on above: Performed By: #### P T, CK, BNP, CBC, BMP, HEPATIC, MG, HS TROP #### [address] Creatinine [Mass/Vol] 1.99 mg/dL High 0.60-1.20 [facility] Comment on above: Performed By: #### P T, CK, BNP, CBC, BMP, HEPATIC, MG, HS TROP #### [address] Creatinine Clr Calc Pharmacy 29.98 Normal [facility] Comment on above: Performed By: #### P T, CK, BNP, CBC, BMP, HEPATIC, MG, HS TROP #### [address] Estimated GFR 25.252 mL/Min Normal [facility] Comment on above: Performed By: #### P T, CK, BNP, CBC, BMP, HEPATIC, MG, HS TROP #### [address] Globulin (S) [Mass/Vol] 3.9 g/dL Normal [facility] Comment on above: Performed By: #### P T, CK, BNP, CBC, BMP, HEPATIC, MG, HS TROP #### [address] Glucose [Mass/Vol] 228 mg/dL High 70-100 [facility] Comment on above: Result Comment: [place] Glucose Reference Range is dependent on time and content of last meal. Glucose of more than 200 mg/dL in a nonstressed, ambulatory subject supports the diagnosis of Diabetes Mellitus. ADA recommended reference range Performed By: #### P T, CK, BNP, CBC, BMP, HEPATIC, MG, HS TROP #### [address] Potassium [Moles/Vol] 5.0 mmol/L Normal 3.5-5.1 [facility] Comment on above: Performed By: #### P T, CK, BNP, CBC, BMP, HEPATIC, MG, HS TROP #### [facility] [address] Protein [Mass/Vol] 7.4 g/dL Normal 6.4-8.9 [facility] Comment on above: Performed By: #### P T, CK, BNP, CBC, BMP, HEPATIC, MG, HS TROP #### [facility] [address] Sodium [Moles/Vol] 134 mmol/L Low 136-145 [facility] Comment on above: Performed By: #### P T, CK, BNP, CBC, BMP, HEPATIC, MG, HS TROP #### [facility] [address] Urea nitrogen [Mass/Vol] 67 mg/dL High 7-25 [facility] Comment on above: Performed By: #### P T, CK, BNP, CBC, BMP, HEPATIC, MG, HS TROP #### [facility] [address] Eosinophils Auto (Bld) [#/Vo l]Ordered By: Mauri Chavira on 10-17-2024 Eosinophils (Bld) [#/Vol] Automated eosinophil count 0.0-0.45 [facility] Eosinophils/100 WBC Auto (Bl d)Ordered By: Mauri Chavira on 10-17-2024 Eosinophils/100 WBC (Bld) Automated eosinophil % . [facility] Erythrocyte distribution wid th Auto (RBC) [Ratio]Ordered By: Mauri Chavira on 10-17-2024 Erythrocyte distribution width (RBC) [Ratio] Erythrocyte distribution width [Ratio] by Automated count High 11.9-15.3 [facility] Globulin Calc (S) [Mass/Vol] Ordered By: Mauri Chavira on 10-17-2024 Globulin (S) [Mass/Vol] Serum globulin measurement by calculation (mass/volume) [facility] Glucose Poct Glucometerson 1 12-18-2023 Glucose [Mass/Vol] 245 mg/dL Normal [facility] Comment on above: Result Comment: [place] Glucose Reference Range is dependent on time and content of last meal. Glucose of more than 200 mg/dL in a nonstressed, ambulatory subject supports the diagnosis of Diabetes Mellitus. PERFORMED BY: [place] [address] PATHOLOGIST BUSINESS APPLICATIONS DEVELOPER MAY HYDE M.D. Performed By: #### P T, CK, BNP, CBC, BMP, HEPATIC, MG, HS TROP #### [address] Glucose [Mass/Vol] 335 mg/dL Normal [facility] Comment on above: Result Comment: [place] Glucose Reference Range is dependent on time and content of last meal. Glucose of more than 200 mg/dL in a nonstressed, ambulatory subject supports the diagnosis of Diabetes Mellitus. PERFORMED BY: [address] [place] [address] PATHOLOGIST BUSINESS APPLICATIONS DEVELOPER MAY HYDE M.D. Performed By: #### P T, CK, BNP, CBC, BMP, HEPATIC, MG, HS TROP #### [address] Glucose [Mass/Vol] 324 mg/dL Normal [facility] Comment on above: Result Comment: [place] Glucose Reference Range is dependent on time and content of last meal. Glucose of more than 200 mg/dL in a nonstressed, ambulatory subject supports the diagnosis of Diabetes Mellitus. PERFORMED BY: [address] [place] [address] PATHOLOGIST BUSINESS APPLICATIONS DEVELOPER MAY HYDE M.D. Performed By: #### P T, CK, BNP, CBC, BMP, HEPATIC, MG, HS TROP #### [address] Glucose [Mass/Vol] 253 mg/dL Normal [facility] Comment on above: Result Comment: [place] Glucose Reference Range is dependent on time and content of last meal. Glucose of more than 200 mg/dL in a nonstressed, ambulatory subject supports the diagnosis of Diabetes Mellitus. PERFORMED BY: [address] [place] [address] PATHOLOGIST BUSINESS APPLICATIONS DEVELOPER MAY HYDE M.D. Performed By: #### P T, CK, BNP, CBC, BMP, HEPATIC, MG, HS TROP #### [facility] [address] Hematocrit Auto (Bld) [Volum e fraction]Ordered By: Mauri Chavira on 10-17-2024 Hematocrit (Bld) [Volume fraction] Hematocrit [Volume Fraction] of Blood by Automated count 34.0-46.4 [facility] Hemoglobin [Mass/volume] in BloodOrdered By: Mauri Chavira on 10-17-2024 Hemoglobin (Bld) [Mass/Vol] Hemoglobin [Mass/volume] in Blood 11.8-15.4 [facility] Leukocytes [#/volume] correc gali for nucleated erythrocytes in Blood by Automated counOrdered By: Mauri Chavira on 10-17-2024 WBC corrected for nucl RBC Auto (Bld) [#/Vol] Leukocytes [#/volume] corrected for nucleated erythrocytes in Blood by Automated coun 3.8-11.6 [facility] Lymphocytes Auto (Bld) [#/Vo l]Ordered By: Mauri Chavira on 10-17-2024 Lymphocytes (Bld) [#/Vol] Lymphocytes [#/volume] in Blood by Automated count 1.00-4.8 [facility] Lymphocytes/100 WBC Auto (Bl d)Ordered By: Mauri Chavira on 10-17-2024 Lymphocytes/100 WBC (Bld) Lymphocytes/100 leukocytes in Blood by Automated count . [facility] MCH Auto (RBC) [Entitic mass ]Ordered By: Mauri Chavira on 10-17-2024 MCH (RBC) [Entitic mass] MCH [Entitic mass] by Automated count 24.7-34.3 [facility] MCHC Auto (RBC) [Mass/Vol]Or dered By: Mauri Chavira on 10-17-2024 MCHC (RBC) [Mass/Vol] MCHC [Mass/volume] by Automated count 32.0-35.0 [facility] MCV Auto (RBC) [Entitic vol] Ordered By: Mauri Chavira on 10-17-2024 MCV (RBC) [Entitic vol] MCV [Entitic volume] by Automated count 80-100 [facility] Magnesiumon 10-17-2024 Magnesium [Mass/Vol] 1.6 mg/dL Low 1.9-2.7 [facility] Comment on above: Result Comment: PERF ORMED BY: [facility] [address] [place] [address] PATHOLOGIST BUSINESS APPLICATIONS DEVELOPER MAY HYDE M.D. Performed By: #### P T, CK, BNP, CBC, BMP, HEPATIC, MG, HS TROP #### [facility] [address] Monocytes Auto (Bld) [#/Vol] Ordered By: Mauri Chavira on 10-17-2024 Monocytes (Bld) [#/Vol] Automated blood monocyte count 0.0-0.8 [facility] Monocytes/100 WBC Auto (Bld) Ordered By: Mauri Chavira on 10-17-2024 Monocytes/100 WBC (Bld) Automated monocyte % . [facility] Neutrophils Auto (Bld) [#/Vo l]Ordered By: Mauri Chavira on 10-17-2024 Neutrophils (Bld) [#/Vol] Neutrophils [#/volume] in Blood by Automated count 1.8-7.7 [facility] Neutrophils/100 WBC Auto (Bl d)Ordered By: Mauri Chavira on 10-17-2024 Neutrophils/100 WBC (Bld) Automated neutrophil % . [facility] Nucleated erythrocytes [Pres ence] in Blood by Automated countOrdered By: Mauri Chavira on 10-17-2024 Nucleated RBC Auto Ql (Bld) Nucleated erythrocytes [Presence] in Blood by Automated count 0-0.5 [facility] Platelet mean volume Auto (B ld) [Entitic vol]Ordered By: Mauri Chavira on 10-17-2024 Platelet mean volume (Bld) [Entitic vol] Platelet mean volume [Entitic volume] in Blood by Automated count 6.3-10.7 [facility] Platelets Auto (Bld) [#/Vol] Ordered By: Mauri Chavira on 12-06-2024 Platelets (Bld) [#/Vol] Platelets [#/volume] in Blood by Automated count 150-450 [facility] Protein [Mass/volume] in Ser um or PlasmaOrdered By: Mauri Chavira on 10-17-2024 Protein [Mass/Vol] Protein [Mass/volume ] in Serum or Plasma 6.4-8.9 [facility] RBC Auto (Bld) [#/Vol]Ordere d By: Mauri Chavira on 10-17-2024 RBC (Bld) [#/Vol] Erythrocytes [#/volu me] in Blood by Automated count 3.60-5.00 [facility] Serum or plasma albumin/glob ulin mass ratioOrdered By: Mauri Chavira on 10-17-2024 Albumin/Globulin [Mass ratio] Serum or plasma albumin/globulin mass ratio [facility] WBC Auto (Bld) [#/Vol]Ordere d By: Mauri Chavira on 10-17-2024 WBC (Bld) [#/Vol] Leukocytes [#/volume ] in Blood by Automated count 3.8-11.6 [facility] B-Type Natriuretic Peptideon 10-16-2024 Natriuretic peptide B (Bld) [Mass/Vol] 547.0 pg/mL High 5-100 [facility] Comment on above: Result Comment: PERF ORMED BY: [place] [address] PATHOLOGIST BUSINESS APPLICATIONS DEVELOPER MAY HYDE M.D. Performed By: #### P T, CK, BNP, CBC, BMP, HEPATIC, MG, HS TROP #### [facility] [address] [place] [address] Basic Metabolic Panelon 0 Anion gap [Moles/Vol] 18.1 mmol/L High 6.0-15.0 [facility] Comment on above: Performed By: #### P T, CK, BNP, CBC, BMP, HEPATIC, MG, HS TROP #### [address] Calcium [Mass/Vol] 9.7 mg/dL Significant change down 8.6-10.3 [facility] Comment on above: Performed By: #### P T, CK, BNP, CBC, BMP, HEPATIC, MG, HS TROP #### [address] Chloride [Moles/Vol] 100 mmol/L Normal 98-107 [facility] Comment on above: Performed By: #### P T, CK, BNP, CBC, BMP, HEPATIC, MG, HS TROP #### [address] CO2 [Moles/Vol] 23.3 mmol/L Normal 21.0-31.0 [facility] Comment on above: Performed By: #### P T, CK, BNP, CBC, BMP, HEPATIC, MG, HS TROP #### [address] Creatinine [Mass/Vol] 2.14 mg/dL High 0.60-1.20 [facility] Comment on above: Performed By: #### P T, CK, BNP, CBC, BMP, HEPATIC, MG, HS TROP #### [address] Creatinine Clr Calc Pharmacy 27.88 Normal [facility] Comment on above: Result Comment: PERF ORMED BY: [place] [address] PATHOLOGIST BUSINESS APPLICATIONS DEVELOPER MAY HYDE M.D. Performed By: #### P T, CK, BNP, CBC, BMP, HEPATIC, MG, HS TROP #### [address] Estimated GFR 23.142 mL/Min Normal [facility] Comment on above: Performed By: #### P T, CK, BNP, CBC, BMP, HEPATIC, MG, HS TROP #### [address] Glucose [Mass/Vol] 301 mg/dL High 70-100 [facility] Comment on above: Result Comment: [place] Glucose Reference Range is dependent on time and content of last meal. Glucose of more than 200 mg/dL in a nonstressed, ambulatory subject supports the diagnosis of Diabetes Mellitus. ADA recommended reference range Performed By: #### P T, CK, BNP, CBC, BMP, HEPATIC, MG, HS TROP #### [address] Potassium [Moles/Vol] 6.4 mmol/L Off scale high 3.5-5.1 [facility] Comment on above: Result Comment: Resu lts called at 1909 on 10/16/24 Critical Result Called to and read back by: ISMA AVILA/RENETTA at: 10/16/2024 19:04:24 by:[id number] Performed By: #### P T, CK, BNP, CBC, BMP, HEPATIC, MG, HS TROP #### [address] Sodium [Moles/Vol] 135 mmol/L Low 136-145 [facility] Comment on above: Performed By: #### P T, CK, BNP, CBC, BMP, HEPATIC, MG, HS TROP #### [address] Urea nitrogen [Mass/Vol] 74 mg/dL High 7-25 [facility] Comment on above: Performed By: #### P T, CK, BNP, CBC, BMP, HEPATIC, MG, HS TROP #### [address] Anion gap [Moles/Vol] 13.8 mmol/L Normal 6.0-15.0 [facility] Comment on above: Performed By: #### P T, CK, BNP, CBC, BMP, HEPATIC, MG, HS TROP #### [address] Calcium [Mass/Vol] 8.1 mg/dL Low 8.6-10.3 [facility] Comment on above: Performed By: #### P T, CK, BNP, CBC, BMP, HEPATIC, MG, HS TROP #### [address] Chloride [Moles/Vol] 104 mmol/L Normal 98-107 [facility] Comment on above: Performed By: #### P T, CK, BNP, CBC, BMP, HEPATIC, MG, HS TROP #### [facility] [address] CO2 [Moles/Vol] 21.5 mmol/L Normal 21.0-31.0 [facility] Comment on above: Performed By: #### P T, CK, BNP, CBC, BMP, HEPATIC, MG, HS TROP #### [facility] [address] Creatinine [Mass/Vol] 2.25 mg/dL High 0.60-1.20 [facility] Comment on above: Performed By: #### P T, CK, BNP, CBC, BMP, HEPATIC, MG, HS TROP #### [address] Creatinine Clr Calc Pharmacy 5.50 Normal [facility] Comment on above: Performed By: #### P T, CK, BNP, CBC, BMP, HEPATIC, MG, HS TROP #### [address] Estimated GFR 21.792 mL/Min Normal [facility] Comment on above: Performed By: #### P T, CK, BNP, CBC, BMP, HEPATIC, MG, HS TROP #### [address] Glucose [Mass/Vol] 388 mg/dL High 70-100 [facility] Comment on above: Result Comment: [place] Glucose Reference Range is dependent on time and content of last meal. Glucose of more than 200 mg/dL in a nonstressed, ambulatory subject supports the diagnosis of Diabetes Mellitus. ADA recommended reference range Performed By: #### P T, CK, BNP, CBC, BMP, HEPATIC, MG, HS TROP #### [address] Potassium [Moles/Vol] 6.3 mmol/L Off scale high 3.5-5.1 [facility] Comment on above: Result Comment: Crit ical Result Called to and read back by: LYNN KLINE at: 10/16/2024 14:01:43 by:[id number] Performed By: #### P T, CK, BNP, CBC, BMP, HEPATIC, MG, HS TROP #### [address] Sodium [Moles/Vol] 133 mmol/L Low 136-145 [facility] Comment on above: Performed By: #### P T, CK, BNP, CBC, BMP, HEPATIC, MG, HS TROP #### [address] Urea nitrogen [Mass/Vol] 73 mg/dL High 7-25 [facility] Comment on above: Performed By: #### P T, CK, BNP, CBC, BMP, HEPATIC, MG, HS TROP #### [address] Blood carbon dioxide, total measurement by calculation (moles/volume)Ordered By: Kavin Escobar on 10-16-2024 CO2 Calc (Bld) [Moles/Vol] Blood carbon dioxide, total measurement by calculation (moles/volume) Low 23-29 [facility] Chloride (Bld) [Moles/Vol]Or dered By: Kavin Escobar on 10-16-2024 Chloride [Moles/Vol] Whole blood chlorid e measurement 98-109 [facility] Complete Blood Count Auto Di ffon 10-16-2024 Basophils (Bld) [#/Vol] 0.1 10*3/uL Normal 0.0-0.2 [facility] Comment on above: Result Comment: PERF ORMED BY: [place] [address] PATHOLOGIST BUSINESS APPLICATIONS DEVELOPER MAY HYDE M.D. Performed By: #### P T, CK, BNP, CBC, BMP, HEPATIC, MG, HS TROP #### [address] Basophils/100 WBC (Bld) 0.7 % Normal . [facility] Comment on above: Performed By: #### P T, CK, BNP, CBC, BMP, HEPATIC, MG, HS TROP #### [address] Eosinophils (Bld) [#/Vol] 0.1 10*3/uL Normal 0.0-0.45 [facility] Comment on above: Performed By: #### P T, CK, BNP, CBC, BMP, HEPATIC, MG, HS TROP #### [address] Eosinophils/100 WBC (Bld) 0.6 % Normal . [facility] Comment on above: Performed By: #### P T, CK, BNP, CBC, BMP, HEPATIC, MG, HS TROP #### [address] Erythrocyte distribution width (RBC) [Ratio] 15.2 % Normal 11.9-15.3 [facility] Comment on above: Performed By: #### P T, CK, BNP, CBC, BMP, HEPATIC, MG, HS TROP #### [address] Hematocrit (Bld) [Volume fraction] 35.5 % Normal 34.0-46.4 [facility] Comment on above: Performed By: #### P T, CK, BNP, CBC, BMP, HEPATIC, MG, HS TROP #### [address] Hemoglobin (Bld) [Mass/Vol] 11.6 g/dL Low 11.8-15.4 [facility] Comment on above: Performed By: #### P T, CK, BNP, CBC, BMP, HEPATIC, MG, HS TROP #### [address] Lymphocytes (Bld) [#/Vol] 1.2 10*3/uL Normal 1.00-4.8 [facility] Comment on above: Performed By: #### P T, CK, BNP, CBC, BMP, HEPATIC, MG, HS TROP #### [address] Lymphocytes/100 WBC (Bld) 12.5 % Normal . [facility] Comment on above: Performed By: #### P T, CK, BNP, CBC, BMP, HEPATIC, MG, HS TROP #### [address] MCH (RBC) [Entitic mass] 29.0 pg Normal 24.7-34.3 [facility] Comment on above: Performed By: #### P T, CK, BNP, CBC, BMP, HEPATIC, MG, HS TROP #### [address] MCV (RBC) [Entitic vol] 89.1 fL Normal 80-100 [facility] Comment on above: Performed By: #### P T, CK, BNP, CBC, BMP, HEPATIC, MG, HS TROP #### [address] Mean Corpuscular HGB Conc 32.6 g/dL Normal 32.0-35.0 [facility] Comment on above: Performed By: #### P T, CK, BNP, CBC, BMP, HEPATIC, MG, HS TROP #### [address] Monocytes (Bld) [#/Vol] 0.7 10*3/uL Normal 0.0-0.8 [facility] Comment on above: Performed By: #### P T, CK, BNP, CBC, BMP, HEPATIC, MG, HS TROP #### [address] Monocytes/100 WBC (Bld) 18.11 % Normal 0.00-20.00 [facility] Comment on above: Performed By: #### P T, CK, BNP, CBC, BMP, HEPATIC, MG, HS TROP #### [address] Monocytes/100 WBC (Bld) 6.8 % Normal . [facility] Comment on above: Performed By: #### P T, CK, BNP, CBC, BMP, HEPATIC, MG, HS TROP #### [address] Neutrophils (Bld) [#/Vol] 8.0 10*3/uL High 1.8-7.7 [facility] Comment on above: Performed By: #### P T, CK, BNP, CBC, BMP, HEPATIC, MG, HS TROP #### [address] Neutrophils/100 WBC (Bld) 79.4 % Normal . [facility] Comment on above: Performed By: #### P T, CK, BNP, CBC, BMP, HEPATIC, MG, HS TROP #### [address] NRBC% 0.1 /100{WBC} Normal 0-0.5 [facility] Comment on above: Performed By: #### P T, CK, BNP, CBC, BMP, HEPATIC, MG, HS TROP #### [address] Platelet mean volume (Bld) [Entitic vol] 9.7 fL Normal 6.3-10.7 [facility] Comment on above: Performed By: #### P T, CK, BNP, CBC, BMP, HEPATIC, MG, HS TROP #### [address] Platelets (Bld) [#/Vol] 181 10*3/uL Normal 150-450 [facility] Comment on above: Performed By: #### P T, CK, BNP, CBC, BMP, HEPATIC, MG, HS TROP #### [address] RBC (Bld) [#/Vol] 3.98 10*6/uL Normal 3.60-5.00 [facility] Comment on above: Performed By: #### P T, CK, BNP, CBC, BMP, HEPATIC, MG, HS TROP #### [address] WBC (Bld) [#/Vol] 10.0 10*3/uL Normal 3.8-11.6 [facility] Comment on above: Performed By: #### P T, CK, BNP, CBC, BMP, HEPATIC, MG, HS TROP #### [facility] [address] [place] [address] [place] Creatine Kinaseon 10-16-2024 CK [Catalytic activity/Vol] 37 U/L Normal [facility] Comment on above: Performed By: #### P T, CK, BNP, CBC, BMP, HEPATIC, MG, HS TROP #### [facility] [address] [place] [address] [facility] Creatine kinase [Enzymatic a ctivity/volume] in Serum or PlasmaOrdered By: Jorge Luis Zavala on 10-16-2024 CK [Catalytic activity/Vol] Creatine kinase [Enzymatic activity/volume] in Serum or Plasma [facility] Creatinine (Bld) [Mass/Vol]O rdered By: Kavin Escobar on 10-16-2024 Creatinine [Mass/Vol] Whole blood creati nine measurement High 0.6-1.3 [facility] Comment on above: ER/ESD physician is notified/shown all ISTAT results.Critical values may be confirmed by laboratory testing ifdeemed necessary by ER attending doctor. ECG 12 lead ECGon 10-16-2024 ECG 12 lead ECG [facility] Main [place] [address] [place], [place] [id number] Electrocardiograph Report Signed Patient: Joe Call MR#: [id number] 0 : 1945 Acct:[id number] Age/Sex: 79 / F ADM Date: 10/16/24 Loc: Room: [address] [place] [address] Type: DIS IN Attending : Kavin Escobar DO Ordering Provider: Mauri Chavira [...] Moreno MD 1 12/24/23 1516 Normal [facility] ECG 12 lead ECG [facility] Main [place] [id number] Electrocardiograph Report Signed Patient: Joe Call MR#: [id number] 0 : 1945 Acct:[id number] Age/Sex: 79 / F ADM Date: 10/16/24 Loc: Room: [address] [place] [address] Type: ADM IN Attending Dr: Mauri Chavira [...] By Jorge Luis Zavala DO 1926 Normal [facility] ECG 12 lead ECG [facility] Main [address] [address] Electrocardiograph Report Signed Patient: Joe Call MR#: [id number] 0 : 1945 Acct:[id number] Age/Sex: 79 / F ADM Date: 10/16/24 Loc: Room: [address] [place] [address] Type: ADM IN Attending Dr: Mauri Chavira [...] Jorge Luis Zavala DO 1926 Normal [facility] Glucose Glucometer (BldC) [M ass/Vol]Ordered By: Kavin Escobar on 10-16-2024 Glucose [Mass/Vol] Capillary blood gluc ose measurement by glucometer (mass/volume) High 70-105 [facility] Glucose Poct Glucometerson 1 12-17-2023 Glucose [Mass/Vol] 266 mg/dL Normal [facility] Comment on above: Result Comment: [facility] Glucose Reference Range is dependent on time and content of last meal. Glucose of more than 200 mg/dL in a nonstressed, ambulatory subject supports the diagnosis of Diabetes Mellitus. PERFORMED BY: [place] [address] PATHOLOGIST BUSINESS APPLICATIONS DEVELOPER MAY HYDE M.D. Performed By: #### P T, CK, BNP, CBC, BMP, HEPATIC, MG, HS TROP #### [facility] [address] Hemoglobin Calc (Bld) [Mass/ Vol]Ordered By: Kavin Escobar on 10-16-2024 Hemoglobin (Bld) [Mass/Vol] Blood hemoglobin measurement by calculation (mass/volume) 12.0-17.0 [facility] INR in Platelet poor plasma by Coagulation assayOrdered By: Jorge Luis Zavala on 10-16-2024 INR Coag (PPP) [Relative time] INR in Platelet poor plasma by Coagulation assay [facility] Comment on above: INR Therapeutic [...] Chloride [Moles/Vol] 104.0 mmol/L Normal 98-109 [facility] Comment on above: Performed By: #### E RBMP #### [facility] [address] [place] [address] Point of Care testing , CO2 [Moles/Vol] 22 mmol/L Low 23-29 [facility] Comment on above: Performed By: #### E RBMP #### [facility] [address] [place] [address] Point of Care testing , Creatinine [Mass/Vol] 2.3 mg/dL High 0.6-1.3 [facility] Comment on above: Result Comment: ER/E SD physician is notified/shown all ISTAT results. Critical values may be confirmed by laboratory testing if deemed necessary by ER attending doctor. Performed By: #### E RBMP #### [facility] [address] [place] [address] Point of Care testing , Glucose [Mass/Vol] 390 mg/dL High 70-105 [facility] Comment on above: Result Comment: PERF ORMED BY: [place] [address] PATHOLOGIST BUSINESS APPLICATIONS DEVELOPER MAY HYDE M.D. Performed By: #### E RBMP #### [address] Point of Care testing , Hemoglobin (Bld) [Mass/Vol] 12.2 g/dL Normal 12.0-17.0 [facility] Comment on above: Performed By: #### E RBMP #### [address] Point of Care testing , ISTAT Ionized Calcium 1.11 mol/L Low 1.12-1.32 [facility] Comment on above: Performed By: #### E RBMP #### [address] Point of Care testing , Potassium [Moles/Vol] 6.4 mmol/L Off scale high 3.5-4.9 [facility] Comment on above: Performed By: #### E RBMP #### [address] Point of Care testing , Sodium [Moles/Vol] 134 mmol/L Low 138-146 [facility] Comment on above: Performed By: #### E RBMP #### [address] Point of Care testing , Urea nitrogen [Mass/Vol] 69 mg/dL High 8-26 [facility] Comment on above: Performed By: #### E RBMP #### [address] Point of Care testing , ISTAT ER Chem8+ PanelOrdered By: Kavin Escobar on 10-16-2024 Hematocrit (Bld) [Volume fraction] 36.0 % Low 38.0-51.0 [facility] Comment on above: Performed By: #### E RBMP #### [address] Point of Care testing , Magnesiumon 10-16-2024 Magnesium [Mass/Vol] 1.4 mg/dL Low 1.9-2.7 [facility] Comment on above: Result Comment: PERF ORMED BY: [place] [address] PATHOLOGIST BUSINESS APPLICATIONS DEVELOPER MAY HYDE M.D. Performed By: #### P T, CK, BNP, CBC, BMP, HEPATIC, MG, HS TROP #### [facility] [address] [place] [address] [facility] Monocyte distribution width [Entitic volume] in Blood by AutomatedOrdered By: Jorge Luis Zavala on 10-16-2024 Monocyte distribution width Auto (Bld) [Entitic vol] Monocyte distribution width [Entitic volume] in Blood by Automated 0.00-20.00 [facility] Natriuretic peptide B [Mass/ Vol]Ordered By: Jorge Luis Zavala on 10-16-2024 Natriuretic peptide B (Bld) [Mass/Vol] BNP ser/plas High 5-100 [facility] Potassium (Bld) [Moles/Vol]O rdered By: Kavin Escobar on 10-16-2024 Potassium [Moles/Vol] Whole blood potass ium measurement Critically high 3.5-4.9 [facility] Prothrombin Time INRon 10-16 INR Coag (PPP) [Relative time] 2.6 {INR} Normal [facility] Comment on above: [...] heart valves: 3 - 4.5 PERFORMED BY: [place] [id number] PATHOLOGIST BUSINESS APPLICATIONS DEVELOPER MAY HYDE M.D. Performed By: #### P T, CK, BNP, CBC, BMP, HEPATIC, MG, HS TROP #### [facility] [address] [place] [address] [facility] PT Coag (PPP) [Time] 28.9 s High 9.0-12.9 [facility] Comment on above: Result Comment: A he matocrit value greater than 55% may lead to inaccurate results in coagulation testing. Patients having hematocrit values >55% require a special collection tube for coagulation studies. Please contact the laboratory at [phone] for redraw instructions. Performed By: #### P T, CK, BNP, CBC, BMP, HEPATIC, MG, HS TROP #### [facility] [address] [place] [address] Prothrombin time (PT)Ordered By: Jorge Luis Zavala on 10-16-2024 PT Coag (PPP) [Time] Prothrombin time (PT) High 9.0- 12.9 [facility] Comment on above: A hematocrit value g reater than 55% may lead to inaccurate results in coagulation testing. Patients having hematocrit values >55% require a special collection tube for coagulation studies. Please contact the laboratory at [phone] for redraw instructions. Sodium (Bld) [Moles/Vol]Orde red By: Kavin Escobar on 10-16-2024 Sodium [Moles/Vol] Whole blood sodium measurement Low 138-146 [facility] Troponin I High Sensitivityo n 10-16-2024 Troponin I High Sensitivity 9.9 pg/mL Normal 0.0-15.0 [facility] Comment on above: Result Comment: PERF ORMED BY: [place] [address] PATHOLOGIST BUSINESS APPLICATIONS DEVELOPER MAY HYDE M.D. Performed By: #### P T, CK, BNP, CBC, BMP, HEPATIC, MG, HS TROP #### [facility] [address] [place] [address] Troponin I.cardiac [Mass/vol ume] in Serum or Plasma by Detection limit <= 0.01 ng/Ordered By: Jorge Luis Zavala on 10-16-2024 Troponin I.cardiac DL <= 0.01 ng/mL [Mass/Vol] Troponin I.cardiac [Mass/volume] in Serum or Plasma by Detection limit <= 0.01 ng/ 0.0-15.0 [facility] Urea nitrogen (Bld) [Mass/Vo l]Ordered By: Kavin Escobar on 10-16-2024 Urea nitrogen [Mass/Vol] Blood urea nitrogen (BUN) measurement in whole blood (mass/volume) High 8-26 [facility] Whole blood ionized calcium measurement (moles/volume)Ordered By: Kavin Escobar on 10-16-2024 Calcium.ionized (Bld) [Moles/Vol] Whole blood ionized calcium measurement (moles/volume) Low 1.12-1.32 [facility] XR chest 1V portableon 10-16 XR chest 1V portable [facility] Main [place] [address] [place] [address] XRay Report Signed Patient: Joe Call MR#: [id number] 0 : 1945 Acct:[id number] Age/Sex: 79 / F ADM Date: 10/16/24 Loc: ER Room: Type: [facility] ER Attending Dr: Copies to: [...] Jarred Randolph M.D.10/16/2024 2:10 PM Dictation Location: [place] [address] Transcribed By: [facility] 10/16/24 1410 Dictated By: Jarred Randolph DO 10/16/24 1407 Signed By: 10/16/24 1410 Normal [facility] 37on 10-08-2024 37 *Cut lisinopril in h intermediate to 10mg daily. *Follow-up labs in 2 weeks. *Limit fluid intake to 64oz or 2 liters a day. Normal [facility] Office Visiton 10-08-2024 Follow-up visit [id number] BassemSaeJoe G 1945 F Date Provider Department Center 10/08/2024 Moris[facility]EL [facility] Family History Problem Relation Age of Onset Coronary artery disease Other Diabetes Other Polycystic kidney disease Other Family Status - Relation Status Age at Other Level of Service:80977 [place] OFFICE/OUTPATIENT ESTABLISHED MOD MDM 30 MIN Reason for Visit and Comments: Congestive Heart Failure [127] Hypertension [507948] Atrial Fibrillation [80] Normal [facility] Estimated glomerular filtrat ion rate (GFR) non- Americanon 09-29-2024 GFR/1.73 sq M.predicted among non-blacks MDRD (S/P/Bld) [Vol rate/Area] Estimated glomerular filtration rate (GFR) non- Low >=60 mL/min/1.[address] [facility] Laboratory - Chemistry and C hemistry - challengeon 09-29-2024 Calcium [Mass/Vol] 8.8 mg/dL 8.5-10.1 [facility] Chloride [Moles/Vol] 102 mmol/L 98-107 [facility] CO2 [Moles/Vol] 24.9 mmol/L 21.0-32.0 [facility] Creatinine [Mass/Vol] 1.92 mg/dL High 0.55-1.02 [facility] GFR/1.73 sq M.predicted MDRD (S/P/Bld) [Vol rate/Area] 31 mL/min/{1.73_m2} Low >=60 mL/min/1.[address] [facility] Glucose [Mass/Vol] 387 mg/dL High 74-106 [facility] Potassium [Moles/Vol] 5.0 mmol/L 3.5-5.1 [facility] Sodium [Moles/Vol] 136 mmol/L 136-145 [facility] Urea nitrogen [Mass/Vol] 64.0 mg/dL High 7.0-18.0 [facility] Urea nitrogen/Creatinine [Mass ratio] 33.3 mg/mg [facility] Serum or plasma anion gap de terminationon 09-29-2024 Anion gap [Moles/Vol] Serum or plasma an ion gap determination [facility] 37on 09-03-2024 37 *Your kidney [...] of breath or worsening leg swelling. [facility] Office Visiton 09-03-2024 Follow-up visit [id number] Joe Call 1945 F Date Provider Department Center 09/03/2024 YAMEL OCAMPO Family History Problem Relation Age of Onset Coronary artery disease Other Diabetes Other Polycystic kidney disease Other Family Status - Relation Status Age at Other Level of Service:61489 [place] OFFICE/OUTPATIENT ESTABLISHED MOD MDM 30 MIN Reason for Visit and Comments: Congestive Heart Failure [127] Atrial Fibrillation [80] Hypertension [431832] Normal [facility] Office Visiton 08-20-2024 Follow-up visit [id number] Joe Call 1945 F Date Provider Department Center 08/20/2024 YAMEL OCAMPO Family History Problem Relation Age of Onset Coronary artery disease Other Diabetes Other Polycystic kidney disease Other Family Status - Relation Status Age at Other Level of Service:91983 [place] OFFICE/OUTPATIENT ESTABLISHED MOD MDM 30 MIN Reason for Visit and Comments: Congestive Heart Failure [127] [facility] Basophils Auto (Bld) [#/Vol] on 07-25-2024 Basophils (Bld) [#/Vol] 0.1 10 3/uL 0.0-0.1 [facility] Basophils/100 WBC Auto (Bld) on 07-25-2024 Basophils/100 WBC (Bld) 1.2 % 0.2-2.0 [facility] Eosinophils/100 WBC Auto (Bl d)on 07-25-2024 Eosinophils/100 WBC (Bld) 1.6 % 0.9-7.0 [facility] Erythrocyte distribution wid th Auto (RBC) [Ratio]on 07-25-2024 Erythrocyte distribution width (RBC) [Ratio] 13.7 % 11.0-15.0 [facility] Estimated glomerular filtrat ion rate (GFR) non- Americanon 07-25-2024 GFR/1.73 sq M.predicted among non-blacks MDRD (S/P/Bld) [Vol rate/Area] 47 mL/min/{1.73_m2} Low >=60 [facility] Globulin Calc (S) [Mass/Vol] on 07-25-2024 Globulin (S) [Mass/Vol] 4.7 g/dL [facility] Hematocrit Auto (Bld) [Volum e fraction]on 07-25-2024 Hematocrit (Bld) [Volume fraction] 33.6 % Low 36.0-48.0 [facility] Hemoglobin [Mass/volume] in Bloodon 07-25-2024 Hemoglobin (Bld) [Mass/Vol] 11.0 g/dL Low 12.0-16.0 [facility] Laboratory - Chemistry and C hemistry - challengeon 07-25-2024 Albumin [Mass/Vol] 2.3 g/dL Low 3.4-5.0 [facility] ALP [Catalytic activity/Vol] 101 U/L 46-116 [facility] ALT [Catalytic activity/Vol] 14 U/L 14-59 [facility] AST [Catalytic activity/Vol] 13 U/L Low 15-37 [facility] Bilirubin [Mass/Vol] 0.8 mg/dL 0.2-1.0 [facility] Calcium [Mass/Vol] 8.6 mg/dL 8.5-10.1 [facility] Chloride [Moles/Vol] 102 mmol/L 98-107 [facility] CO2 [Moles/Vol] 27.8 mmol/L 21.0-32.0 [facility] Creatinine [Mass/Vol] 1.13 mg/dL High 0.55-1.02 [facility] GFR/1.73 sq M.predicted MDRD (S/P/Bld) [Vol rate/Area] 56 mL/min/{1.73_m2} Low >=60 [facility] Glucose [Mass/Vol] 228 mg/dL High 74-106 [facility] Potassium [Moles/Vol] 3.7 mmol/L 3.5-5.1 [facility] Protein [Mass/Vol] 7.0 g/dL 6.4-8.2 [facility] Sodium [Moles/Vol] 140 mmol/L 136-145 [facility] Urea nitrogen [Mass/Vol] 26.0 mg/dL High 7.0-18.0 [facility] Urea nitrogen/Creatinine [Mass ratio] 23.0 mg/mg [facility] Laboratory - Hematology and Cell countson 07-25-2024 Immature granulocytes/100 WBC (Bld) 0.2 % 0.0-0.5 [facility] Leukocytes [#/volume] correc gali for nucleated erythrocytes in Blood by Automated counon 07-25-2024 WBC corrected for nucl RBC Auto (Bld) [#/Vol] 8.7 10 3/uL 4.0-11.0 [facility] Lymphocytes Auto (Bld) [#/Vo l]on 07-25-2024 Lymphocytes (Bld) [#/Vol] 1.4 10 3/uL 1.2-3.8 [facility] Lymphocytes/100 WBC Auto (Bl d)on 07-25-2024 Lymphocytes/100 WBC (Bld) 15.9 % Low 20.5-60.0 [facility] MCH Auto (RBC) [Entitic mass ]on 07-25-2024 MCH (RBC) [Entitic mass] 29.7 pg 26.7-34.0 [facility] MCHC Auto (RBC) [Mass/Vol]on 07-25-2024 MCHC (RBC) [Mass/Vol] 32.7 g/dL 29.9-35.2 [facility] MCV Auto (RBC) [Entitic vol] on 07-25-2024 MCV (RBC) [Entitic vol] 90.8 fL 81.0-99.0 [facility] Monocytes Auto (Bld) [#/Vol] on 07-25-2024 Monocytes (Bld) [#/Vol] 0.7 10 3/uL 0.3-0.8 [facility] Monocytes/100 WBC Auto (Bld) on 07-25-2024 Monocytes/100 WBC (Bld) 8.2 % 1.7-12.0 [facility] Neutrophils Auto (Bld) [#/Vo l]on 07-25-2024 Neutrophils (Bld) [#/Vol] 6.3 10 3/uL 1.4-6.5 [facility] Neutrophils/100 WBC Auto (Bl d)on 07-25-2024 Neutrophils/100 WBC (Bld) 72.9 % 43.0-75.0 [facility] No Panel Informationon 07-25 Eosinophils # (Auto) 0.1 10 3/uL 0.0-0.7 [facility] Immature Granulocyte # (Auto) 0.02 10 3/uL 0.00-0.03 [facility] Platelet mean volume Auto (B ld) [Entitic vol]on 07-25-2024 Platelet mean volume (Bld) [Entitic vol] 10.3 fL 9.5-13.5 [facility] Platelets Auto (Bld) [#/Vol] on 07-25-2024 Platelets (Bld) [#/Vol] 239 10 3/uL 150-450 [facility] RBC Auto (Bld) [#/Vol]on RBC (Bld) [#/Vol] 3.70 10 6/uL Low 4.20-5.40 [facility] Serum or plasma albumin/glob ulin mass ratioon 07-25-2024 Albumin/Globulin [Mass ratio] 0.5 {ratio} [facility] Serum or plasma anion gap de terminationon 07-25-2024 Anion gap [Moles/Vol] 13.9 mmol/L [facility] Basophils Auto (Bld) [#/Vol] on 07-24-2024 Basophils (Bld) [#/Vol] 0.1 10 3/uL 0.0-0.1 [facility] Basophils/100 WBC Auto (Bld) on 07-24-2024 Basophils/100 WBC (Bld) 0.7 % 0.2-2.0 [facility] Eosinophils/100 WBC Auto (Bl d)on 07-24-2024 Eosinophils/100 WBC (Bld) 1.7 % 0.9-7.0 [facility] Erythrocyte distribution wid th Auto (RBC) [Ratio]on 07-24-2024 Erythrocyte distribution width (RBC) [Ratio] 13.7 % 11.0-15.0 [facility] Estimated glomerular filtrat ion rate (GFR) non- Americanon 07-24-2024 GFR/1.73 sq M.predicted among non-blacks MDRD (S/P/Bld) [Vol rate/Area] 48 mL/min/{1.73_m2} Low >=60 [facility] Hematocrit Auto (Bld) [Volum e fraction]on 07-24-2024 Hematocrit (Bld) [Volume fraction] 34.5 % Low 36.0-48.0 [facility] Hemoglobin [Mass/volume] in Bloodon 07-24-2024 Hemoglobin (Bld) [Mass/Vol] 11.2 g/dL Low 12.0-16.0 [facility] Laboratory - Chemistry and C hemistry - challengeon 07-24-2024 Calcium [Mass/Vol] 8.9 mg/dL 8.5-10.1 [facility] Chloride [Moles/Vol] 104 mmol/L 98-107 [facility] CO2 [Moles/Vol] 26.1 mmol/L 21.0-32.0 [facility] Creatinine [Mass/Vol] 1.11 mg/dL High 0.55-1.02 [facility] GFR/1.73 sq M.predicted MDRD (S/P/Bld) [Vol rate/Area] 58 mL/min/{1.73_m2} Low >=60 [facility] Glucose [Mass/Vol] 247 mg/dL High 74-106 [facility] Natriuretic peptide B (Bld) [Mass/Vol] 6277.0 pg/mL High <=1800.0 [facility] Comment on above: RESULTS CALLED TO YOEL STEWARD RN IN ER BY Mira Martinez at 1430 Potassium [Moles/Vol] 4.1 mmol/L 3.5-5.1 [facility] Sodium [Moles/Vol] 141 mmol/L 136-145 [facility] Urea nitrogen [Mass/Vol] 28.0 mg/dL High 7.0-18.0 [facility] Urea nitrogen/Creatinine [Mass ratio] 25.2 mg/mg [facility] Laboratory - Hematology and Cell countson 07-24-2024 Immature granulocytes/100 WBC (Bld) 0.3 % 0.0-0.5 [facility] Leukocytes [#/volume] correc gali for nucleated erythrocytes in Blood by Automated counon 07-24-2024 WBC corrected for nucl RBC Auto (Bld) [#/Vol] 9.7 10 3/uL 4.0-11.0 [facility] Lymphocytes Auto (Bld) [#/Vo l]on 07-24-2024 Lymphocytes (Bld) [#/Vol] 0.9 10 3/uL Low 1.2-3.8 [facility] Lymphocytes/100 WBC Auto (Bl d)on 07-24-2024 Lymphocytes/100 WBC (Bld) 9.2 % Low 20.5-60.0 [facility] MCH Auto (RBC) [Entitic mass ]on 07-24-2024 MCH (RBC) [Entitic mass] 29.9 pg 26.7-34.0 [facility] MCHC Auto (RBC) [Mass/Vol]on 07-24-2024 MCHC (RBC) [Mass/Vol] 32.5 g/dL 29.9-35.2 [facility] MCV Auto (RBC) [Entitic vol] on 07-24-2024 MCV (RBC) [Entitic vol] 92.0 fL 81.0-99.0 [facility] Monocytes Auto (Bld) [#/Vol] on 07-24-2024 Monocytes (Bld) [#/Vol] 0.5 10 3/uL 0.3-0.8 [facility] Monocytes/100 WBC Auto (Bld) on 07-24-2024 Monocytes/100 WBC (Bld) 5.3 % 1.7-12.0 [facility] Neutrophils Auto (Bld) [#/Vo l]on 07-24-2024 Neutrophils (Bld) [#/Vol] 8.0 10 3/uL High 1.4-6.5 [facility] Neutrophils/100 WBC Auto (Bl d)on 07-24-2024 Neutrophils/100 WBC (Bld) 82.8 % High 43.0-75.0 [facility] No Panel Informationon 07-24 Eosinophils # (Auto) 0.2 10 3/uL 0.0-0.7 [facility] Immature Granulocyte # (Auto) 0.03 10 3/uL 0.00-0.03 [facility] Troponin I High Sensitivity 20.5 pg/mL 4.0-51.3 [facility] Comment on above: CUT-OFF POINTS [...] volume (Bld) [Entitic vol] 10.4 fL 9.5-13.5 [facility] Platelets Auto (Bld) [#/Vol] on 07-24-2024 Platelets (Bld) [#/Vol] 236 10 3/uL 150-450 [facility] RBC Auto (Bld) [#/Vol]on RBC (Bld) [#/Vol] 3.75 10 6/uL Low 4.20-5.40 [facility] Serum or plasma anion gap de terminationon 07-24-2024 Anion gap [Moles/Vol] 15.0 mmol/L [facility] Urine Cultureon 07-17-2024 Bacteria identified Cx Nom (U) ORGANISM: Citrobacter freundii complex (O:CITFRC) [place] Count >100,000 ORGANISM: Proteus mirabilis (O:PROMIR) [place] Count 20,000 Aerobic MIRTHA Charge (NMIC56) - [...] RESISTANT TO ALL B-LACTAM DRUGS. PERFORMED BY: [address] [place] [address] PATHOLOGIST BUSINESS APPLICATIONS DEVELOPER CHOLO YEAGER M.D. Normal [facility] Comment on above: Performed By: #### P T, CK, BNP, CBC, BMP, HEPATIC, MG, HS TROP #### [facility] [address] [id number] [facility] Urine culture routineOrdered By: Shantel Steven on 07-17-2024 Bacteria identified Cx Nom (U) Proteus mirabilis Abnormal [facility] Erythrocyte distribution wid th Auto (RBC) [Ratio]on 07-15-2024 Erythrocyte distribution width (RBC) [Ratio] 13.3 % 11.0-15.0 [facility] Estimated glomerular filtrat ion rate (GFR) non- Americanon 07-15-2024 GFR/1.73 sq M.predicted among non-blacks MDRD (S/P/Bld) [Vol rate/Area] 47 mL/min/{1.73_m2} Low >=60 [facility] Globulin Calc (S) [Mass/Vol] on 07-15-2024 Globulin (S) [Mass/Vol] 4.2 g/dL [facility] Hematocrit Auto (Bld) [Volum e fraction]on 07-15-2024 Hematocrit (Bld) [Volume fraction] 34.9 % Low 36.0-48.0 [facility] Hemoglobin [Mass/volume] in Bloodon 07-15-2024 Hemoglobin (Bld) [Mass/Vol] 11.6 g/dL Low 12.0-16.0 [facility] Laboratory - Chemistry and C hemistry - challengeon 07-15-2024 Bilirubin Ql (U) Negative NEGATIVE [facility] Glucose (U) [Mass/Vol] Negative NEGATIVE [facility] Ketones Ql (U) Negative NEGATIVE [facility] pH (U) 6.5 [pH] 5.0-9.0 [facility] Specific gravity (U) [Rel density] 1.020 1.005-1.025 [facility] Urobilinogen Qn (U) 0.2 {Meka'U}/dL 0.2-1.0 [facility] Albumin [Mass/Vol] 2.6 g/dL Low 3.4-5.0 [facility] ALP [Catalytic activity/Vol] 87 U/L 46-116 [facility] ALT [Catalytic activity/Vol] 18 U/L 14-59 [facility] AST [Catalytic activity/Vol] 14 U/L Low 15-37 [facility] Bilirubin [Mass/Vol] 0.6 mg/dL 0.2-1.0 [facility] Calcium [Mass/Vol] 8.6 mg/dL 8.5-10.1 [facility] Chloride [Moles/Vol] 101 mmol/L 98-107 [facility] CO2 [Moles/Vol] 31.4 mmol/L 21.0-32.0 [facility] Creatinine [Mass/Vol] 1.12 mg/dL High 0.55-1.02 [facility] GFR/1.73 sq M.predicted MDRD (S/P/Bld) [Vol rate/Area] 57 mL/min/{1.73_m2} Low >=60 [facility] Glucose [Mass/Vol] 153 mg/dL High 74-106 [facility] Natriuretic peptide B (Bld) [Mass/Vol] 3410.0 pg/mL High <=1800.0 [facility] Comment on above: RESULTS CALLED TO Bogdan Robin RN at 0840 Potassium [Moles/Vol] 3.6 mmol/L 3.5-5.1 [facility] Protein [Mass/Vol] 6.8 g/dL 6.4-8.2 [facility] Sodium [Moles/Vol] 141 mmol/L 136-145 [facility] Urea nitrogen [Mass/Vol] 43.0 mg/dL High 7.0-18.0 [facility] Urea nitrogen/Creatinine [Mass ratio] 38.4 mg/mg [facility] Laboratory - Specimen inform ationon 07-15-2024 Appearance (U) CLEAR CLEAR [facility] Color (U) LT. YELLOW YELLOW [facility] Laboratory - Urinalysison Leukocyte esterase Test strip Ql (U) Negative NEGATIVE [facility] Mucus Ql (Urine sed) NONE SEEN NONE SEEN [facility] Nitrite Ql (U) Negative NEGATIVE [facility] Protein Ql (U) 100 mg/dL Abnormal NEG/TRACE [facility] Leukocytes [#/volume] correc gali for nucleated erythrocytes in Blood by Automated counon 07-15-2024 WBC corrected for nucl RBC Auto (Bld) [#/Vol] 8.5 10 3/uL 4.0-11.0 [facility] MCH Auto (RBC) [Entitic mass ]on 07-15-2024 MCH (RBC) [Entitic mass] 29.9 pg 26.7-34.0 [facility] MCHC Auto (RBC) [Mass/Vol]on 07-15-2024 MCHC (RBC) [Mass/Vol] 33.2 g/dL 29.9-35.2 [facility] MCV Auto (RBC) [Entitic vol] on 07-15-2024 MCV (RBC) [Entitic vol] 89.9 fL 81.0-99.0 [facility] No Panel Informationon 07-15 Urine Bacteria NONE SEEN #/HPF NONE SEEN [facility] Urine Occult Blood TRACE-I NEGATIVE [facility] Urine RBC 0-2 #/HPF 0-2 [facility] Urine Squamous Epithelial Cells FEW #/LPF Abnormal NONE/RARE [facility] Urine WBC NONE SEEN #/HPF NONE SEEN [facility] NONE SEEN #/HPF NONE SEEN [facility] Negative NEGATIVE [facility] TRACE-I NEGATIVE [facility] CLEAR CLEAR [facility] LT. YELLOW YELLOW [facility] NONE SEEN NONE SEEN [facility] 6.5 5.0-9.0 [facility] 100 mg/dL Abnormal NEG/TRACE [facility] 0-2 #/HPF 0-2 [facility] 1.020 1.005-1.025 [facility] FEW #/LPF Abnormal NONE/RARE [facility] 0.2 EU/dL 0.2-1.0 [facility] Troponin I High Sensitivity 21.3 pg/mL 4.0-51.3 [facility] Comment on above: CUT-OFF POINTS [...] AND CLINICAL INFORMATION. 3410.0 pg/mL High <=1800.0 [facility] 21.3 pg/mL 4.0-51.3 [facility] 2.6 g/dL Low 3.4-5.0 [facility] 87 U/L 46-116 [facility] 18 U/L 14-59 [facility] 14 U/L Low 15-37 [facility] 38.4 [facility] 43.0 mg/dL High 7.0-18.0 [facility] 8.6 mg/dL 8.5-10.1 [facility] 101 mmol/L 98-107 [facility] 31.4 mmol/L 21.0-32.0 [facility] 1.12 mg/dL High 0.55-1.02 [facility] 57 Low >=60 [facility] 153 mg/dL High 74-106 [facility] 3.6 mmol/L 3.5-5.1 [facility] 141 mmol/L 136-145 [facility] 0.6 mg/dL 0.2-1.0 [facility] 6.8 g/dL 6.4-8.2 [facility] Platelet mean volume Auto (B ld) [Entitic vol]on 07-15-2024 Platelet mean volume (Bld) [Entitic vol] 11.0 fL 9.5-13.5 [facility] Platelets Auto (Bld) [#/Vol] on 07-15-2024 Platelets (Bld) [#/Vol] 177 10 3/uL 150-450 [facility] RBC Auto (Bld) [#/Vol]on RBC (Bld) [#/Vol] 3.88 10 6/uL Low 4.20-5.40 [facility] Serum or plasma albumin/glob ulin mass ratioon 07-15-2024 Albumin/Globulin [Mass ratio] 0.6 {ratio} [facility] Serum or plasma anion gap de terminationon 07-15-2024 Anion gap [Moles/Vol] 12.2 mmol/L Fi [facility] Basophils Auto (Bld) [#/Vol] on 07-14-2024 Basophils (Bld) [#/Vol] 0.1 10 3/uL 0.0-0.1 [facility] Basophils/100 WBC Auto (Bld) on 07-14-2024 Basophils/100 WBC (Bld) 0.9 % 0.2-2.0 [facility] Eosinophils/100 WBC Auto (Bl d)on 07-14-2024 Eosinophils/100 WBC (Bld) 1.3 % 0.9-7.0 [facility] Erythrocyte distribution wid th Auto (RBC) [Ratio]on 07-14-2024 Erythrocyte distribution width (RBC) [Ratio] 13.5 % 11.0-15.0 [facility] Estimated glomerular filtrat ion rate (GFR) non- Americanon 07-14-2024 GFR/1.73 sq M.predicted among non-blacks MDRD (S/P/Bld) [Vol rate/Area] 30 mL/min/{1.73_m2} Low >=60 [facility] Hematocrit Auto (Bld) [Volum e fraction]on 07-14-2024 Hematocrit (Bld) [Volume fraction] 38.5 % 36.0-48.0 [facility] Hemoglobin [Mass/volume] in Bloodon 07-14-2024 Hemoglobin (Bld) [Mass/Vol] 12.8 g/dL 12.0-16.0 [facility] Laboratory - Chemistry and C hemistry - challengeon 07-14-2024 Calcium [Mass/Vol] 9.0 mg/dL 8.5-10.1 [facility] Chloride [Moles/Vol] 96 mmol/L Low 98-107 [facility] CO2 [Moles/Vol] 35.5 mmol/L High 21.0-32.0 [facility] Creatinine [Mass/Vol] 1.65 mg/dL High 0.55-1.02 [facility] GFR/1.73 sq M.predicted MDRD (S/P/Bld) [Vol rate/Area] 36 mL/min/{1.73_m2} Low >=60 [facility] Glucose [Mass/Vol] 458 mg/dL High 74-106 [facility] Potassium [Moles/Vol] 4.0 mmol/L 3.5-5.1 [facility] Sodium [Moles/Vol] 135 mmol/L Low 136-145 [facility] Urea nitrogen [Mass/Vol] 52.0 mg/dL High 7.0-18.0 [facility] Urea nitrogen/Creatinine [Mass ratio] 31.5 mg/mg [facility] Laboratory - Hematology and Cell countson 07-14-2024 Immature granulocytes/100 WBC (Bld) 0.1 % 0.0-0.5 [facility] Leukocytes [#/volume] correc gali for nucleated erythrocytes in Blood by Automated counon 07-14-2024 WBC corrected for nucl RBC Auto (Bld) [#/Vol] 8.2 10 3/uL 4.0-11.0 [facility] Lymphocytes Auto (Bld) [#/Vo l]on 07-14-2024 Lymphocytes (Bld) [#/Vol] 1.1 10 3/uL Low 1.2-3.8 [facility] Lymphocytes/100 WBC Auto (Bl d)on 07-14-2024 Lymphocytes/100 WBC (Bld) 13.7 % Low 20.5-60.0 [facility] MCH Auto (RBC) [Entitic mass ]on 07-14-2024 MCH (RBC) [Entitic mass] 30.0 pg 26.7-34.0 [facility] MCHC Auto (RBC) [Mass/Vol]on 07-14-2024 MCHC (RBC) [Mass/Vol] 33.2 g/dL 29.9-35.2 [facility] MCV Auto (RBC) [Entitic vol] on 07-14-2024 MCV (RBC) [Entitic vol] 90.2 fL 81.0-99.0 [facility] Monocytes Auto (Bld) [#/Vol] on 07-14-2024 Monocytes (Bld) [#/Vol] 0.5 10 3/uL 0.3-0.8 [facility] Monocytes/100 WBC Auto (Bld) on 07-14-2024 Monocytes/100 WBC (Bld) 6.6 % 1.7-12.0 [facility] Neutrophils Auto (Bld) [#/Vo l]on 07-14-2024 Neutrophils (Bld) [#/Vol] 6.3 10 3/uL 1.4-6.5 [facility] Neutrophils/100 WBC Auto (Bl d)on 07-14-2024 Neutrophils/100 WBC (Bld) 77.4 % High 43.0-75.0 [facility] No Panel Informationon 07-14 Eosinophils # (Auto) 0.1 10 3/uL 0.0-0.7 [facility] Immature Granulocyte # (Auto) 0.01 10 3/uL 0.00-0.03 [facility] Troponin I High Sensitivity 17.9 pg/mL 4.0-51.3 [facility] Comment on above: CUT-OFF POINTS [...] DIAGNOSTIC AND CLINICAL INFORMATION. 17.9 pg/mL 4.0-51.3 [facility] 31.5 [facility] 0.1 10 3/uL 0.0-0.7 [facility] 52.0 mg/dL High 7.0-18.0 [facility] 9.0 mg/dL 8.5-10.1 [facility] 96 mmol/L Low 98-107 [facility] 35.5 mmol/L High 21.0-32.0 [facility] 0.01 10 3/uL 0.00-0.03 [facility] 1.65 mg/dL High 0.55-1.02 [facility] 0.1 % 0.0-0.5 [facility] 36 Low >=60 [facility] 458 mg/dL High 74-106 [facility] 4.0 mmol/L 3.5-5.1 [facility] 135 mmol/L Low 136-145 [facility] Platelet mean volume Auto (B ld) [Entitic vol]on 07-14-2024 Platelet mean volume (Bld) [Entitic vol] 11.0 fL 9.5-13.5 [facility] Platelets Auto (Bld) [#/Vol] on 07-14-2024 Platelets (Bld) [#/Vol] 182 10 3/uL 150-450 [facility] RBC Auto (Bld) [#/Vol]on RBC (Bld) [#/Vol] 4.27 10 6/uL 4.20-5.40 [facility] Serum or plasma anion gap de terminationon 07-14-2024 Anion gap [Moles/Vol] 7.5 mmol/L [facility] 36on 07-01-2024 36 Regarding lab result [...] for patient to return my call. [facility] Estimated glomerular filtrat ion rate (GFR) non- Americanon 06-24-2024 GFR/1.73 sq M.predicted among non-blacks MDRD (S/P/Bld) [Vol rate/Area] 38 mL/min/{1.73_m2} Low >=60 [facility] Laboratory - Chemistry and C hemistry - challengeon 06-24-2024 Calcium [Mass/Vol] 8.4 mg/dL Low 8.5-10.1 [facility] Chloride [Moles/Vol] 100 mmol/L 98-107 [facility] CO2 [Moles/Vol] 31.1 mmol/L 21.0-32.0 [facility] Creatinine [Mass/Vol] 1.34 mg/dL High 0.55-1.02 [facility] GFR/1.73 sq M.predicted MDRD (S/P/Bld) [Vol rate/Area] 46 mL/min/{1.73_m2} Low >=60 [facility] Glucose [Mass/Vol] 222 mg/dL High 74-106 [facility] Potassium [Moles/Vol] 3.6 mmol/L 3.5-5.1 [facility] Sodium [Moles/Vol] 138 mmol/L 136-145 [facility] Urea nitrogen [Mass/Vol] 32.0 mg/dL High 7.0-18.0 [facility] Urea nitrogen/Creatinine [Mass ratio] 23.9 mg/mg [facility] No Panel Informationon 06-[address] [facility] 32.0 mg/dL High 7.0-18.0 [facility] 8.4 mg/dL Low 8.5-10.1 [facility] 100 mmol/L 98-107 [facility] 31.1 mmol/L 21.0-32.0 [facility] 1.34 mg/dL High 0.55-1.02 [facility] 46 Low >=60 [facility] 222 mg/dL High 74-106 [facility] 3.6 mmol/L 3.5-5.1 [facility] 138 mmol/L 136-145 [facility] Serum or plasma anion gap de terminationon 06-24-2024 Anion gap [Moles/Vol] 10.5 mmol/L [facility] Office Visiton 06-18-2024 Follow-up visit [id number] Joe Call 1945 F Date Provider Department Center 06/18/2024 RICA DEAN [facility] Family History Problem Relation Age of Onset Coronary artery disease Other Diabetes Other Polycystic kidney disease Other Family Status - Relation Status Age at Other Level of Service:[address] [place] OFFICE/OUTPATIENT ESTABLISHED MOD MDM 30 MIN [facility] Basophils Auto (Bld) [#/Vol] on 06-10-2024 Basophils (Bld) [#/Vol] 0.1 10 3/uL 0.0-0.1 [facility] Basophils/100 WBC Auto (Bld) on 06-10-2024 Basophils/100 WBC (Bld) 1.0 % 0.2-2.0 [facility] Eosinophils/100 WBC Auto (Bl d)on 06-10-2024 Eosinophils/100 WBC (Bld) 1.3 % 0.9-7.0 [facility] Erythrocyte distribution wid th Auto (RBC) [Ratio]on 06-10-2024 Erythrocyte distribution width (RBC) [Ratio] 14.6 % 11.0-15.0 [facility] Estimated glomerular filtrat ion rate (GFR) non- Americanon 06-10-2024 GFR/1.73 sq M.predicted among non-blacks MDRD (S/P/Bld) [Vol rate/Area] 54 mL/min/{1.73_m2} Low >=60 [facility] Globulin Calc (S) [Mass/Vol] on 06-10-2024 Globulin (S) [Mass/Vol] 4.5 g/dL [facility] Hematocrit Auto (Bld) [Volum e fraction]on 06-10-2024 Hematocrit (Bld) [Volume fraction] 36.8 % 36.0-48.0 [facility] Hemoglobin [Mass/volume] in Bloodon 06-10-2024 Hemoglobin (Bld) [Mass/Vol] 12.1 g/dL 12.0-16.0 [facility] Laboratory - Chemistry and C hemistry - challengeon 06-10-2024 Albumin [Mass/Vol] 2.4 g/dL Low 3.4-5.0 [facility] ALP [Catalytic activity/Vol] 94 U/L 46-116 [facility] ALT [Catalytic activity/Vol] 13 U/L Low 14-59 [facility] AST [Catalytic activity/Vol] 13 U/L Low 15-37 [facility] Bilirubin [Mass/Vol] 0.9 mg/dL 0.2-1.0 [facility] Calcium [Mass/Vol] 8.9 mg/dL 8.5-10.1 [facility] Chloride [Moles/Vol] 101 mmol/L 98-107 [facility] CO2 [Moles/Vol] 29.4 mmol/L 21.0-32.0 [facility] Creatinine [Mass/Vol] 1.00 mg/dL 0.55-1.02 [facility] GFR/1.73 sq M.predicted MDRD (S/P/Bld) [Vol rate/Area] mL/min/{1.73_m2} >=60 [facility] Glucose [Mass/Vol] 167 mg/dL High 74-106 [facility] Potassium [Moles/Vol] 3.4 mmol/L Low 3.5-5.1 [facility] Protein [Mass/Vol] 6.9 g/dL 6.4-8.2 [facility] Sodium [Moles/Vol] 136 mmol/L 136-145 [facility] Urea nitrogen [Mass/Vol] 24.0 mg/dL High 7.0-18.0 [facility] Urea nitrogen/Creatinine [Mass ratio] 24.0 mg/mg [facility] Laboratory - Hematology and Cell countson 06-10-2024 Immature granulocytes/100 WBC (Bld) 0.3 % 0.0-0.5 [facility] Leukocytes [#/volume] correc gali for nucleated erythrocytes in Blood by Automated counon 06-10-2024 WBC corrected for nucl RBC Auto (Bld) [#/Vol] 7.9 10 3/uL 4.0-11.0 [facility] Lymphocytes Auto (Bld) [#/Vo l]on 06-10-2024 Lymphocytes (Bld) [#/Vol] 1.3 10 3/uL 1.2-3.8 [facility] Lymphocytes/100 WBC Auto (Bl d)on 06-10-2024 Lymphocytes/100 WBC (Bld) 16.8 % Low 20.5-60.0 [facility] MCH Auto (RBC) [Entitic mass ]on 06-10-2024 MCH (RBC) [Entitic mass] 29.8 pg 26.7-34.0 [facility] MCHC Auto (RBC) [Mass/Vol]on 06-10-2024 MCHC (RBC) [Mass/Vol] 32.9 g/dL 29.9-35.2 [facility] MCV Auto (RBC) [Entitic vol] on 06-10-2024 MCV (RBC) [Entitic vol] 90.6 fL 81.0-99.0 [facility] Monocytes Auto (Bld) [#/Vol] on 06-10-2024 Monocytes (Bld) [#/Vol] 0.8 10 3/uL 0.3-0.8 [facility] Monocytes/100 WBC Auto (Bld) on 06-10-2024 Monocytes/100 WBC (Bld) 9.8 % 1.7-12.0 [facility] Neutrophils Auto (Bld) [#/Vo l]on 06-10-2024 Neutrophils (Bld) [#/Vol] 5.6 10 3/uL 1.4-6.5 [facility] Neutrophils/100 WBC Auto (Bl d)on 06-10-2024 Neutrophils/100 WBC (Bld) 70.8 % 43.0-75.0 [facility] No Panel Informationon 06-10 Eosinophils # (Auto) 0.1 10 3/uL 0.0-0.7 [facility] Immature Granulocyte # (Auto) 0.02 10 3/uL 0.00-0.03 [facility] 2.4 g/dL Low 3.4-5.0 [facility] 0.1 10 3/uL 0.0-0.7 [facility] 94 U/L 46-116 [facility] 13 U/L Low 15-37 [facility] 24.0 [facility] 0.02 10 3/uL 0.00-0.03 [facility] 24.0 mg/dL High 7.0-18.0 [facility] 0.3 % 0.0-0.5 [facility] 8.9 mg/dL 8.5-10.1 [facility] 101 mmol/L 98-107 [facility] 29.4 mmol/L 21.0-32.0 [facility] 1.00 mg/dL 0.55-1.02 [facility] >60 >=60 [facility] 167 mg/dL High 74-106 [facility] 3.4 mmol/L Low 3.5-5.1 [facility] 136 mmol/L 136-145 [facility] 0.9 mg/dL 0.2-1.0 [facility] 6.9 g/dL 6.4-8.2 [facility] Platelet mean volume Auto (B ld) [Entitic vol]on 06-10-2024 Platelet mean volume (Bld) [Entitic vol] 11.2 fL 9.5-13.5 [facility] Platelets Auto (Bld) [#/Vol] on 06-10-2024 Platelets (Bld) [#/Vol] 189 10 3/uL 150-450 [facility] RBC Auto (Bld) [#/Vol]on RBC (Bld) [#/Vol] 4.06 10 6/uL Low 4.20-5.40 [facility] Serum or plasma albumin/glob ulin mass ratioon 06-10-2024 Albumin/Globulin [Mass ratio] 0.5 {ratio} [facility] Serum or plasma anion gap de terminationon 06-10-2024 Anion gap [Moles/Vol] 9.0 mmol/L [facility] Basophils Auto (Bld) [#/Vol] on 06-09-2024 Basophils (Bld) [#/Vol] 0.1 10 3/uL 0.0-0.1 [facility] Basophils/100 WBC Auto (Bld) on 06-09-2024 Basophils/100 WBC (Bld) 1.0 % 0.2-2.0 [facility] Eosinophils/100 WBC Auto (Bl d)on 06-09-2024 Eosinophils/100 WBC (Bld) 1.5 % 0.9-7.0 [facility] Erythrocyte distribution wid th Auto (RBC) [Ratio]on 06-09-2024 Erythrocyte distribution width (RBC) [Ratio] 14.8 % 11.0-15.0 [facility] Estimated glomerular filtrat ion rate (GFR) non- Americanon 06-09-2024 GFR/1.73 sq M.predicted among non-blacks MDRD (S/P/Bld) [Vol rate/Area] mL/min/{1.73_m2} >=60 [facility] Fibrin D-dimer [Presence] in Platelet poor plasma by Latex agglutinationon 06-09-2024 Fibrin D-dimer LA Ql (PPP) 0.39 mg/L FEU <=0.59 [facility] Comment on above: Increases in [...] on 06-09-2024 Globulin (S) [Mass/Vol] 4.8 g/dL [facility] Hematocrit Auto (Bld) [Volum e fraction]on 06-09-2024 Hematocrit (Bld) [Volume fraction] 37.7 % 36.0-48.0 [facility] Hemoglobin [Mass/volume] in Bloodon 06-09-2024 Hemoglobin (Bld) [Mass/Vol] 12.5 g/dL 12.0-16.0 [facility] Laboratory - Chemistry and C hemistry - challengeon 06-09-2024 Albumin [Mass/Vol] 2.5 g/dL Low 3.4-5.0 [facility] ALP [Catalytic activity/Vol] 86 U/L 46-116 [facility] ALT [Catalytic activity/Vol] 18 U/L 14-59 [facility] AST [Catalytic activity/Vol] 34 U/L 15-37 [facility] Bilirubin [Mass/Vol] 0.8 mg/dL 0.2-1.0 [facility] Calcium [Mass/Vol] 8.6 mg/dL 8.5-10.1 [facility] Chloride [Moles/Vol] 103 mmol/L 98-107 [facility] CO2 [Moles/Vol] 27.1 mmol/L 21.0-32.0 [facility] Creatinine [Mass/Vol] 0.88 mg/dL 0.55-1.02 [facility] GFR/1.73 sq M.predicted MDRD (S/P/Bld) [Vol rate/Area] mL/min/{1.73_m2} >=60 [facility] Glucose [Mass/Vol] 142 mg/dL High 74-106 [facility] Lipase [Catalytic activity/Vol] 45.0 U/L 16.0-77.0 [facility] Natriuretic peptide B (Bld) [Mass/Vol] 3488.0 pg/mL High <=1800.0 [facility] Comment on above: RESULTS CALLED TO MAIDA MCGOWAN RN @BY Alla Kevin [id number] Potassium [Moles/Vol] 5.0 mmol/L 3.5-5.1 [facility] Protein [Mass/Vol] 7.3 g/dL 6.4-8.2 [facility] Sodium [Moles/Vol] 135 mmol/L Low 136-145 [facility] Urea nitrogen [Mass/Vol] 28.0 mg/dL High 7.0-18.0 [facility] Urea nitrogen/Creatinine [Mass ratio] 31.8 mg/mg [facility] Laboratory - Hematology and Cell countson 06-09-2024 Immature granulocytes/100 WBC (Bld) 0.3 % 0.0-0.5 [facility] Laboratory - Microbiology an d Antimicrobial susceptibilityon 06-09-2024 SARS-CoV-2 (COVID-19) RNA FERN+probe Ql (Unsp spec) Negative NEGATIVE [facility] Comment on above: This test [...] Auto (Bld) [#/Vol] 8.9 10 3/uL 4.0-11.0 [facility] Lymphocytes Auto (Bld) [#/Vo l]on 06-09-2024 Lymphocytes (Bld) [#/Vol] 1.3 10 3/uL 1.2-3.8 [facility] Lymphocytes/100 WBC Auto (Bl d)on 06-09-2024 Lymphocytes/100 WBC (Bld) 15.1 % Low 20.5-60.0 [facility] MCH Auto (RBC) [Entitic mass ]on 06-09-2024 MCH (RBC) [Entitic mass] 30.3 pg 26.7-34.0 [facility] MCHC Auto (RBC) [Mass/Vol]on 06-09-2024 MCHC (RBC) [Mass/Vol] 33.2 g/dL 29.9-35.2 [facility] MCV Auto (RBC) [Entitic vol] on 06-09-2024 MCV (RBC) [Entitic vol] 91.5 fL 81.0-99.0 [facility] Monocytes Auto (Bld) [#/Vol] on 06-09-2024 Monocytes (Bld) [#/Vol] 0.7 10 3/uL 0.3-0.8 [facility] Monocytes/100 WBC Auto (Bld) on 06-09-2024 Monocytes/100 WBC (Bld) 7.9 % 1.7-12.0 [facility] Neutrophils Auto (Bld) [#/Vo l]on 06-09-2024 Neutrophils (Bld) [#/Vol] 6.6 10 3/uL High 1.4-6.5 [facility] Neutrophils/100 WBC Auto (Bl d)on 06-09-2024 Neutrophils/100 WBC (Bld) 74.2 % 43.0-75.0 [facility] No Panel Informationon 06-[address] [facility] Eosinophils # (Auto) 0.1 10 3/uL 0.0-0.7 [facility] Immature Granulocyte # (Auto) 0.03 10 3/uL 0.00-0.03 [facility] Troponin I High Sensitivity 17.0 pg/mL 4.0-51.3 [facility] Comment on above: CUT-OFF POINTS [...] AND CLINICAL INFORMATION. 3488.0 pg/mL High <=1800.0 [facility] 45.0 U/L 16.0-77.0 [facility] 17.0 pg/mL 4.0-51.3 [facility] 2.5 g/dL Low 3.4-5.0 [facility] 0.1 10 3/uL 0.0-0.7 [facility] 86 U/L 46-116 [facility] 18 U/L 14-59 [facility] 34 U/L 15-37 [facility] 31.8 [facility] 0.03 10 3/uL 0.00-0.03 [facility] 28.0 mg/dL High 7.0-18.0 [facility] 0.3 % 0.0-0.5 [facility] 8.6 mg/dL 8.5-10.1 [facility] 103 mmol/L 98-107 [facility] 27.1 mmol/L 21.0-32.0 [facility] 0.88 mg/dL 0.55-1.02 [facility] >60 >=60 [facility] 142 mg/dL High 74-106 [facility] 5.0 mmol/L 3.5-5.1 [facility] 135 mmol/L Low 136-145 [facility] 0.8 mg/dL 0.2-1.0 [facility] 7.3 g/dL 6.4-8.2 [facility] Platelet mean volume Auto (B ld) [Entitic vol]on 06-09-2024 Platelet mean volume (Bld) [Entitic vol] 12.4 fL 9.5-13.5 [facility] Platelets Auto (Bld) [#/Vol] on 06-09-2024 Platelets (Bld) [#/Vol] 205 10 3/uL 150-450 [facility] RBC Auto (Bld) [#/Vol]on RBC (Bld) [#/Vol] 4.12 10 6/uL Low 4.20-5.40 [facility] Serum or plasma albumin/glob ulin mass ratioon 06-09-2024 Albumin/Globulin [Mass ratio] 0.5 {ratio} [facility] Serum or plasma anion gap de terminationon 06-09-2024 Anion gap [Moles/Vol] 9.9 mmol/L [facility] Basophils Auto (Bld) [#/Vol] on 06-01-2024 Basophils (Bld) [#/Vol] 0.1 10 3/uL 0.0-0.1 [facility] Basophils/100 WBC Auto (Bld) on 06-01-2024 Basophils/100 WBC (Bld) 0.9 % 0.2-2.0 [facility] Eosinophils/100 WBC Auto (Bl d)on 06-01-2024 Eosinophils/100 WBC (Bld) 1.2 % 0.9-7.0 [facility] Erythrocyte distribution wid th Auto (RBC) [Ratio]on 06-01-2024 Erythrocyte distribution width (RBC) [Ratio] 14.1 % 11.0-15.0 [facility] Estimated glomerular filtrat ion rate (GFR) non- Americanon 06-01-2024 GFR/1.73 sq M.predicted among non-blacks MDRD (S/P/Bld) [Vol rate/Area] 47 mL/min/{1.73_m2} Low >=60 [facility] Globulin Calc (S) [Mass/Vol] on 06-01-2024 Globulin (S) [Mass/Vol] 4.4 g/dL [facility] Hematocrit Auto (Bld) [Volum e fraction]on 06-01-2024 Hematocrit (Bld) [Volume fraction] 37.6 % 36.0-48.0 [facility] Hemoglobin [Mass/volume] in Bloodon 06-01-2024 Hemoglobin (Bld) [Mass/Vol] 12.5 g/dL 12.0-16.0 [facility] Laboratory - Chemistry and C hemistry - challengeon 06-01-2024 Albumin [Mass/Vol] 2.7 g/dL Low 3.4-5.0 [facility] ALP [Catalytic activity/Vol] 87 U/L 46-116 [facility] ALT [Catalytic activity/Vol] 18 U/L 14-59 [facility] AST [Catalytic activity/Vol] 16 U/L 15-37 [facility] Bilirubin [Mass/Vol] 0.5 mg/dL 0.2-1.0 [facility] Calcium [Mass/Vol] 8.7 mg/dL 8.5-10.1 [facility] Chloride [Moles/Vol] 101 mmol/L 98-107 [facility] CO2 [Moles/Vol] 28.9 mmol/L 21.0-32.0 [facility] Creatinine [Mass/Vol] 1.12 mg/dL High 0.55-1.02 [facility] GFR/1.73 sq M.predicted MDRD (S/P/Bld) [Vol rate/Area] 57 mL/min/{1.73_m2} Low >=60 [facility] Glucose [Mass/Vol] 232 mg/dL High 74-106 [facility] Potassium [Moles/Vol] 4.1 mmol/L 3.5-5.1 [facility] Protein [Mass/Vol] 7.1 g/dL 6.4-8.2 [facility] Sodium [Moles/Vol] 137 mmol/L 136-145 [facility] Urea nitrogen [Mass/Vol] 23.0 mg/dL High 7.0-18.0 [facility] Urea nitrogen/Creatinine [Mass ratio] 20.5 mg/mg [facility] Laboratory - Hematology and Cell countson 06-01-2024 Immature granulocytes/100 WBC (Bld) 0.2 % 0.0-0.5 [facility] Leukocytes [#/volume] correc gali for nucleated erythrocytes in Blood by Automated counon 06-01-2024 WBC corrected for nucl RBC Auto (Bld) [#/Vol] 9.0 10 3/uL 4.0-11.0 [facility] Lymphocytes Auto (Bld) [#/Vo l]on 06-01-2024 Lymphocytes (Bld) [#/Vol] 1.4 10 3/uL 1.2-3.8 [facility] Lymphocytes/100 WBC Auto (Bl d)on 06-01-2024 Lymphocytes/100 WBC (Bld) 15.9 % Low 20.5-60.0 [facility] MCH Auto (RBC) [Entitic mass ]on 06-01-2024 MCH (RBC) [Entitic mass] 29.5 pg 26.7-34.0 [facility] MCHC Auto (RBC) [Mass/Vol]on 06-01-2024 MCHC (RBC) [Mass/Vol] 33.2 g/dL 29.9-35.2 [facility] MCV Auto (RBC) [Entitic vol] on 06-01-2024 MCV (RBC) [Entitic vol] 88.7 fL 81.0-99.0 [facility] Monocytes Auto (Bld) [#/Vol] on 06-01-2024 Monocytes (Bld) [#/Vol] 0.8 10 3/uL 0.3-0.8 [facility] Monocytes/100 WBC Auto (Bld) on 06-01-2024 Monocytes/100 WBC (Bld) 8.5 % 1.7-12.0 [facility] Neutrophils Auto (Bld) [#/Vo l]on 06-01-2024 Neutrophils (Bld) [#/Vol] 6.6 10 3/uL High 1.4-6.5 [facility] Neutrophils/100 WBC Auto (Bl d)on 06-01-2024 Neutrophils/100 WBC (Bld) 73.3 % 43.0-75.0 [facility] No Panel Informationon 06-01 Eosinophils # (Auto) 0.1 10 3/uL 0.0-0.7 [facility] Immature Granulocyte # (Auto) 0.02 10 3/uL 0.00-0.03 [facility] 2.7 g/dL Low 3.4-5.0 [facility] 0.1 10 3/uL 0.0-0.7 [facility] 87 U/L 46-116 [facility] 18 U/L 14-59 [facility] 16 U/L 15-37 [facility] 20.5 [facility] 0.02 10 3/uL 0.00-0.03 [facility] 23.0 mg/dL High 7.0-18.0 [facility] 0.2 % 0.0-0.5 [facility] 8.7 mg/dL 8.5-10.1 [facility] 101 mmol/L 98-107 [facility] 28.9 mmol/L 21.0-32.0 [facility] 1.12 mg/dL High 0.55-1.02 [facility] 57 Low >=60 [facility] 232 mg/dL High 74-106 [facility] 4.1 mmol/L 3.5-5.1 [facility] 137 mmol/L 136-145 [facility] 0.5 mg/dL 0.2-1.0 [facility] 7.1 g/dL 6.4-8.2 [facility] Platelet mean volume Auto (B ld) [Entitic vol]on 06-01-2024 Platelet mean volume (Bld) [Entitic vol] 11.1 fL 9.5-13.5 [facility] Platelets Auto (Bld) [#/Vol] on 06-01-2024 Platelets (Bld) [#/Vol] 162 10 3/uL 150-450 [facility] RBC Auto (Bld) [#/Vol]on RBC (Bld) [#/Vol] 4.24 10 6/uL 4.20-5.40 [facility] Serum or plasma albumin/glob ulin mass ratioon 06-01-2024 Albumin/Globulin [Mass ratio] 0.6 {ratio} [facility] Serum or plasma anion gap de terminationon 06-01-2024 Anion gap [Moles/Vol] 11.2 [facility] Bas[facility] Auto (Bld) [#/Vol] on 05-26-2024 Basophils (Bld) [#/Vol] 0.1 10 3/uL 0.0-0.1 [facility] Basophils/100 WBC Auto (Bld) on 05-26-2024 Basophils/100 WBC (Bld) 1.1 % 0.2-2.0 [facility] Eosinophils/100 WBC Auto (Bl d)on 05-26-2024 Eosinophils/100 WBC (Bld) 2.1 % 0.9-7.0 [facility] Erythrocyte distribution wid th Auto (RBC) [Ratio]on 05-26-2024 Erythrocyte distribution width (RBC) [Ratio] 14.0 % 11.0-15.0 [facility] Estimated glomerular filtrat ion rate (GFR) non- Americanon 05-26-2024 GFR/1.73 sq M.predicted among non-blacks MDRD (S/P/Bld) [Vol rate/Area] 40 mL/min/{1.73_m2} Low >=60 [facility] Globulin Calc (S) [Mass/Vol] on 05-26-2024 Globulin (S) [Mass/Vol] 4.4 g/dL [facility] Hematocrit Auto (Bld) [Volum e fraction]on 05-26-2024 Hematocrit (Bld) [Volume fraction] 35.9 % Low 36.0-48.0 [facility] Hemoglobin [Mass/volume] in Bloodon 05-26-2024 Hemoglobin (Bld) [Mass/Vol] 12.0 g/dL 12.0-16.0 [facility] Laboratory - Chemistry and C hemistry - challengeon 05-26-2024 Albumin [Mass/Vol] 2.7 g/dL Low 3.4-5.0 [facility] ALP [Catalytic activity/Vol] 88 U/L 46-116 [facility] ALT [Catalytic activity/Vol] 20 U/L 14-59 [facility] AST [Catalytic activity/Vol] 12 U/L Low 15-37 [facility] Bilirubin [Mass/Vol] 0.5 mg/dL 0.2-1.0 [facility] Calcium [Mass/Vol] 8.9 mg/dL 8.5-10.1 [facility] Chloride [Moles/Vol] 104 mmol/L 98-107 [facility] CO2 [Moles/Vol] 26.7 mmol/L 21.0-32.0 [facility] Creatinine [Mass/Vol] 1.29 mg/dL High 0.55-1.02 [facility] Free T4 [Mass/Vol] 1.19 ng/dL 0.76-1.46 [facility] GFR/1.73 sq M.predicted MDRD (S/P/Bld) [Vol rate/Area] 49 mL/min/{1.73_m2} Low >=60 [facility] Glucose [Mass/Vol] 233 mg/dL High 74-106 [facility] Natriuretic peptide B (Bld) [Mass/Vol] 2687.0 pg/mL High <=1800.0 [facility] Comment on above: RESULTS CALLED TO DR Miranda ALVAREZ IN ER BY Mira Edwards [id number] Potassium [Moles/Vol] 4.0 mmol/L 3.5-5.1 [facility] Protein [Mass/Vol] 7.1 g/dL 6.4-8.2 [facility] Sodium [Moles/Vol] 140 mmol/L 136-145 [facility] TSH Qn 4.487 m[IU]/L High 0.358-3.740 [facility] Urea nitrogen [Mass/Vol] 33.0 mg/dL High 7.0-18.0 [facility] Urea nitrogen/Creatinine [Mass ratio] 25.6 mg/mg [facility] Laboratory - Hematology and Cell countson 05-26-2024 Immature granulocytes/100 WBC (Bld) 0.1 % 0.0-0.5 [facility] Laboratory - Microbiology an d Antimicrobial susceptibilityon 05-26-2024 S. pyogenes Ag Ql (Unsp spec) Negative [facility] SARS-CoV-2 (COVID-19) RNA FERN+probe Ql (Unsp spec) Not detected NOT DETECTE [facility] Comment on above: THIS TEST IS NOT PEREZ ROVDED BY THE FDA. It has beenauthorized for use under an Emergency Use Authorization. SARS-CoV-2 (COVID-19) RNA FERN+probe Ql (Unsp spec) See comment NOT DETECTE [facility] Comment on above: COVID AG PERFORMED-- - 06/06/24 1120 ---SARS-CoV-2 FERN previously reported as: NOT DETECTEDTHIS TEST IS NOT APPROVDED BY THE FDA. It has beenauthorized for use under an Emergency Use Authorization. SARS-CoV-2 (COVID-19) RNA FERN+probe Ql (Unsp spec) Negative NEGATIVE [facility] Comment on above: This test [...] Auto (Bld) [#/Vol] 7.3 10 3/uL 4.0-11.0 [facility] Lymphocytes Auto (Bld) [#/Vo l]on 05-26-2024 Lymphocytes (Bld) [#/Vol] 1.3 10 3/uL 1.2-3.8 [facility] Lymphocytes/100 WBC Auto (Bl d)on 05-26-2024 Lymphocytes/100 WBC (Bld) 18.4 % Low 20.5-60.0 [facility] MCH Auto (RBC) [Entitic mass ]on 05-26-2024 MCH (RBC) [Entitic mass] 30.4 pg 26.7-34.0 [facility] MCHC Auto (RBC) [Mass/Vol]on 05-26-2024 MCHC (RBC) [Mass/Vol] 33.4 g/dL 29.9-35.2 [facility] MCV Auto (RBC) [Entitic vol] on 05-26-2024 MCV (RBC) [Entitic vol] 90.9 fL 81.0-99.0 [facility] Monocytes Auto (Bld) [#/Vol] on 05-26-2024 Monocytes (Bld) [#/Vol] 0.7 10 3/uL 0.3-0.8 [facility] Monocytes/100 WBC Auto (Bld) on 05-26-2024 Monocytes/100 WBC (Bld) 9.5 % 1.7-12.0 [facility] Neutrophils Auto (Bld) [#/Vo l]on 05-26-2024 Neutrophils (Bld) [#/Vol] 5.0 10 3/uL 1.4-6.5 [facility] Neutrophils/100 WBC Auto (Bl d)on 05-26-2024 Neutrophils/100 WBC (Bld) 68.8 % 43.0-75.0 [facility] No Panel Informationon 05-26 See comment [address] DETECTE [facility] Negative [facility] Eosinophils # (Auto) 0.2 10 3/uL 0.0-0.7 [facility] Immature Granulocyte # (Auto) 0.01 10 3/uL 0.00-0.03 [facility] Monoscreen Negative NEGATIVE [facility] Troponin I High Sensitivity 14.9 pg/mL 4.0-51.3 [facility] Comment on above: CUT-OFF POINTS [...] DIAGNOSTIC AND CLINICAL INFORMATION. 1.19 ng/dL 0.76-1.46 [facility] 2687.0 pg/mL High <=1800.0 [facility] 14.9 pg/mL 4.0-51.3 [facility] 4.487 u[iU]/mL High 0.358-3.740 [facility] Negative NEGATIVE [facility] 2.7 g/dL Low 3.4-5.0 [facility] 0.2 10 3/uL 0.0-0.7 [facility] 88 U/L 46-116 [facility] 20 U/L 14-59 [facility] 12 U/L Low 15-37 [facility] 25.6 [facility] 0.01 10 3/uL 0.00-0.03 [facility] 33.0 mg/dL High 7.0-18.0 [facility] 0.1 % 0.0-0.5 [facility] 8.9 mg/dL 8.5-10.1 [facility] 104 mmol/L 98-107 [facility] 26.7 mmol/L 21.0-32.0 [facility] 1.29 mg/dL High 0.55-1.02 [facility] 49 Low >=60 [facility] 233 mg/dL High 74-106 [facility] 4.0 mmol/L 3.5-5.1 [facility] 140 mmol/L 136-145 [facility] 0.5 mg/dL 0.2-1.0 [facility] 7.1 g/dL 6.4-8.2 [facility] Platelet mean volume Auto (B ld) [Entitic vol]on 05-26-2024 Platelet mean volume (Bld) [Entitic vol] 10.6 fL 9.5-13.5 [facility] Platelets Auto (Bld) [#/Vol] on 05-26-2024 Platelets (Bld) [#/Vol] 215 10 3/uL 150-450 [facility] RBC Auto (Bld) [#/Vol]on RBC (Bld) [#/Vol] 3.95 10 6/uL Low 4.20-5.40 [facility] Serum or plasma albumin/glob ulin mass ratioon 05-26-2024 Albumin/Globulin [Mass ratio] 0.6 {ratio} [facility] Serum or plasma anion gap de terminationon 05-26-2024 Anion gap [Moles/Vol] 13.3 mmol/L Fi [facility] ECG 12 lead ECGon 05-22-2024 ECG 12 lead ECG [facility] [place] [address] Electrocardiograph Report Signed Patient: Joe Call MR#: [id number] 0 : 1945 Acct:[id number] Age/Sex: 78 / F ADM Date: 05/22/24 Loc: ER Room: Type: [facility] ER Attending Dr: Ordering Provider: Jorge [...] Sinus bradycardia Confirmed by Daniele Jane DO ([id number]) on 05/22/2024 4:08:55 PM Referred By: Electronically Signed By: Daniele Jane DO Transcribed By: MUS Signed By Daniele Jane DO [id number] Normal [facility] Estimated glomerular filtrat ion rate (GFR) non- Americanon 05-20-2024 GFR/1.73 sq M.predicted among non-blacks MDRD (S/P/Bld) [Vol rate/Area] 39 mL/min/{1.73_m2} Low >=60 [facility] Laboratory - Chemistry and C hemistry - challengeon 05-20-2024 Calcium [Mass/Vol] 8.8 mg/dL 8.5-10.1 [facility] Chloride [Moles/Vol] 103 mmol/L 98-107 [facility] CO2 [Moles/Vol] 24.3 mmol/L 21.0-32.0 [facility] Creatinine [Mass/Vol] 1.32 mg/dL High 0.55-1.02 [facility] GFR/1.73 sq M.predicted MDRD (S/P/Bld) [Vol rate/Area] 47 mL/min/{1.73_m2} Low >=60 [facility] Glucose [Mass/Vol] 243 mg/dL High 74-106 [facility] Potassium [Moles/Vol] 5.0 mmol/L 3.5-5.1 [facility] Sodium [Moles/Vol] 138 mmol/L 136-145 [facility] Urea nitrogen [Mass/Vol] 35.0 mg/dL High 7.0-18.0 [facility] Urea nitrogen/Creatinine [Mass ratio] 26.5 mg/mg [facility] No Panel Informationon 05-[address] [facility] 35.0 mg/dL High 7.0-18.0 [facility] 8.8 mg/dL 8.5-10.1 [facility] 103 mmol/L 98-107 [facility] 24.3 mmol/L 21.0-32.0 [facility] 1.32 mg/dL High 0.55-1.02 [facility] 47 Low >=60 [facility] 243 mg/dL High 74-106 [facility] 5.0 mmol/L 3.5-5.1 [facility] 138 mmol/L 136-145 [facility] Serum or plasma anion gap de terminationon 05-20-2024 Anion gap [Moles/Vol] 15.7 mmol/L [facility] Basophils Auto (Bld) [#/Vol] on 05-06-2024 Basophils (Bld) [#/Vol] 0.1 10 3/uL 0.0-0.1 [facility] Basophils/100 WBC Auto (Bld) on 06-25-2024 Basophils/100 WBC (Bld) 0.9 % 0.2-2.0 [facility] Eosinophils/100 WBC Auto (Bl d)on 05-06-2024 Eosinophils/100 WBC (Bld) 2.7 % 0.9-7.0 [facility] Erythrocyte distribution wid th Auto (RBC) [Ratio]on 05-06-2024 Erythrocyte distribution width (RBC) [Ratio] 13.5 % 11.0-15.0 [facility] Estimated glomerular filtrat ion rate (GFR) non- Americanon 05-06-2024 GFR/1.73 sq M.predicted among non-blacks MDRD (S/P/Bld) [Vol rate/Area] 32 mL/min/{1.73_m2} Low >=60 [facility] Globulin Calc (S) [Mass/Vol] on 05-06-2024 Globulin (S) [Mass/Vol] 4.3 g/dL [facility] Hematocrit Auto (Bld) [Volum e fraction]on 05-06-2024 Hematocrit (Bld) [Volume fraction] 34.6 % Low 36.0-48.0 [facility] Hemoglobin [Mass/volume] in Bloodon 05-06-2024 Hemoglobin (Bld) [Mass/Vol] 11.1 g/dL Low 12.0-16.0 [facility] Laboratory - Chemistry and C hemistry - challengeon 05-06-2024 Albumin [Mass/Vol] 2.5 g/dL Low 3.4-5.0 [facility] ALP [Catalytic activity/Vol] 75 U/L 46-116 [facility] ALT [Catalytic activity/Vol] 16 U/L 14-59 [facility] AST [Catalytic activity/Vol] 11 U/L Low 15-37 [facility] Bilirubin [Mass/Vol] 0.4 mg/dL 0.2-1.0 [facility] Calcium [Mass/Vol] 8.4 mg/dL Low 8.5-10.1 [facility] Chloride [Moles/Vol] 107 mmol/L 98-107 [facility] CO2 [Moles/Vol] 25.7 mmol/L 21.0-32.0 [facility] Creatinine [Mass/Vol] 1.58 mg/dL High 0.55-1.02 [facility] GFR/1.73 sq M.predicted MDRD (S/P/Bld) [Vol rate/Area] 38 mL/min/{1.73_m2} Low >=60 [facility] Glucose [Mass/Vol] 146 mg/dL High 74-106 [facility] Magnesium [Mass/Vol] 1.6 mg/dL Low 1.8-2.4 [facility] Natriuretic peptide B (Bld) [Mass/Vol] 2762.0 pg/mL High <=1800.0 [facility] Comment on above: RESULTS CALLED TO CLARITZA SELLERS RN @BY Alla Venegas at 0557 Potassium [Moles/Vol] 4.1 mmol/L 3.5-5.1 [facility] Protein [Mass/Vol] 6.8 g/dL 6.4-8.2 [facility] Sodium [Moles/Vol] 141 mmol/L 136-145 [facility] Urea nitrogen [Mass/Vol] 49.0 mg/dL High 7.0-18.0 [facility] Urea nitrogen/Creatinine [Mass ratio] 31.0 mg/mg [facility] Laboratory - Hematology and Cell countson 05-06-2024 Immature granulocytes/100 WBC (Bld) 0.1 % 0.0-0.5 [facility] Leukocytes [#/volume] correc gali for nucleated erythrocytes in Blood by Automated counon 05-06-2024 WBC corrected for nucl RBC Auto (Bld) [#/Vol] 6.7 10 3/uL 4.0-11.0 [facility] Lymphocytes Auto (Bld) [#/Vo l]on 05-06-2024 Lymphocytes (Bld) [#/Vol] 1.5 10 3/uL 1.2-3.8 [facility] Lymphocytes/100 WBC Auto (Bl d)on 05-06-2024 Lymphocytes/100 WBC (Bld) 21.8 % 20.5-60.0 [facility] MCH Auto (RBC) [Entitic mass ]on 05-06-2024 MCH (RBC) [Entitic mass] 29.0 pg 26.7-34.0 [facility] MCHC Auto (RBC) [Mass/Vol]on 05-06-2024 MCHC (RBC) [Mass/Vol] 32.1 g/dL 29.9-35.2 [facility] MCV Auto (RBC) [Entitic vol] on 05-06-2024 MCV (RBC) [Entitic vol] 90.3 fL 81.0-99.0 [facility] Monocytes Auto (Bld) [#/Vol] on 05-06-2024 Monocytes (Bld) [#/Vol] 0.7 10 3/uL 0.3-0.8 [facility] Monocytes/100 WBC Auto (Bld) on 05-06-2024 Monocytes/100 WBC (Bld) 10.6 % 1.7-12.0 [facility] Neutrophils Auto (Bld) [#/Vo l]on 05-06-2024 Neutrophils (Bld) [#/Vol] 4.3 10 3/uL 1.4-6.5 [facility] Neutrophils/100 WBC Auto (Bl d)on 05-06-2024 Neutrophils/100 WBC (Bld) 63.9 % 43.0-75.0 [facility] No Panel Informationon 05-06 Eosinophils # (Auto) 0.2 10 3/uL 0.0-0.7 [facility] Immature Granulocyte # (Auto) 0.01 10 3/uL 0.00-0.03 [facility] Troponin I High Sensitivity 13.2 pg/mL 4.0-51.3 [facility] Comment on above: CUT-OFF POINTS [...] AND CLINICAL INFORMATION. 2762.0 pg/mL High <=1800.0 [facility] 13.2 pg/mL 4.0-51.3 [facility] 1.6 mg/dL Low 1.8-2.4 [facility] 2.5 g/dL Low 3.4-5.0 [facility] 0.2 10 3/uL 0.0-0.7 [facility] 75 U/L 46-116 [facility] 16 U/L 14-59 [facility] 11 U/L Low 15-37 [facility] 31.0 [facility] 0.01 10 3/uL 0.00-0.03 [facility] 49.0 mg/dL High 7.0-18.0 [facility] 0.1 % 0.0-0.5 [facility] 8.4 mg/dL Low 8.5-10.1 [facility] 107 mmol/L 98-107 [facility] 25.7 mmol/L 21.0-32.0 [facility] 1.58 mg/dL High 0.55-1.02 [facility] 38 Low >=60 [facility] 146 mg/dL High 74-106 [facility] 4.1 mmol/L 3.5-5.1 [facility] 141 mmol/L 136-145 [facility] 0.4 mg/dL 0.2-1.0 [facility] 6.8 g/dL 6.4-8.2 [facility] Platelet mean volume Auto (B ld) [Entitic vol]on 05-06-2024 Platelet mean volume (Bld) [Entitic vol] 11.3 fL 9.5-13.5 [facility] Platelets Auto (Bld) [#/Vol] on 05-06-2024 Platelets (Bld) [#/Vol] 146 10 3/uL Low 150-450 [facility] RBC Auto (Bld) [#/Vol]on RBC (Bld) [#/Vol] 3.83 10 6/uL Low 4.20-5.40 [facility] Serum or plasma albumin/glob ulin mass ratioon 05-06-2024 Albumin/Globulin [Mass ratio] 0.6 {ratio} [facility] Serum or plasma anion gap de terminationon 05-06-2024 Anion gap [Moles/Vol] 12.4 mmol/L [facility] Basophils Auto (Bld) [#/Vol] on 05-05-2024 Basophils (Bld) [#/Vol] 0.1 10 3/uL 0.0-0.1 [facility] Basophils/100 WBC Auto (Bld) on 05-05-2024 Basophils/100 WBC (Bld) 0.9 % 0.2-2.0 [facility] Eosinophils/100 WBC Auto (Bl d)on 05-05-2024 Eosinophils/100 WBC (Bld) 1.9 % 0.9-7.0 [facility] Erythrocyte distribution wid th Auto (RBC) [Ratio]on 05-05-2024 Erythrocyte distribution width (RBC) [Ratio] 13.4 % 11.0-15.0 [facility] Estimated glomerular filtrat ion rate (GFR) non- Americanon 05-05-2024 GFR/1.73 sq M.predicted among non-blacks MDRD (S/P/Bld) [Vol rate/Area] 29 mL/min/{1.73_m2} Low >=60 [facility] Globulin Calc (S) [Mass/Vol] on 05-05-2024 Globulin (S) [Mass/Vol] 4.4 g/dL [facility] Hematocrit Auto (Bld) [Volum e fraction]on 05-05-2024 Hematocrit (Bld) [Volume fraction] 33.8 % Low 36.0-48.0 [facility] Hemoglobin [Mass/volume] in Bloodon 05-05-2024 Hemoglobin (Bld) [Mass/Vol] 11.1 g/dL Low 12.0-16.0 [facility] Laboratory - Chemistry and C hemistry - challengeon 05-05-2024 Albumin [Mass/Vol] 2.6 g/dL Low 3.4-5.0 [facility] ALP [Catalytic activity/Vol] 74 U/L 46-116 [facility] ALT [Catalytic activity/Vol] 17 U/L 14-59 [facility] AST [Catalytic activity/Vol] 12 U/L Low 15-37 [facility] Bilirubin [Mass/Vol] 0.4 mg/dL 0.2-1.0 [facility] Calcium [Mass/Vol] 6.1 mg/dL Low 8.5-10.1 [facility] Chloride [Moles/Vol] 105 mmol/L 98-107 [facility] CO2 [Moles/Vol] 24.1 mmol/L 21.0-32.0 [facility] Creatinine [Mass/Vol] 1.71 mg/dL High 0.55-1.02 [facility] GFR/1.73 sq M.predicted MDRD (S/P/Bld) [Vol rate/Area] 35 mL/min/{1.73_m2} Low >=60 [facility] Glucose [Mass/Vol] 202 mg/dL High 74-106 [facility] Magnesium [Mass/Vol] 1.5 mg/dL Low 1.8-2.4 [facility] Natriuretic peptide B (Bld) [Mass/Vol] 2725.0 pg/mL High <=1800.0 [facility] Comment on above: RESULTS CALLED TO Frances Bryant (Austyn)@BY Franchesca HuynhJUSTICE COURT DEPUTY CLERK at 0547 Potassium [Moles/Vol] 5.9 mmol/L High 3.5-5.1 [facility] Protein [Mass/Vol] 7.0 g/dL 6.4-8.2 [facility] Sodium [Moles/Vol] 139 mmol/L 136-145 [facility] Urea nitrogen [Mass/Vol] 69.0 mg/dL High 7.0-18.0 [facility] Urea nitrogen/Creatinine [Mass ratio] 40.4 mg/mg [facility] Laboratory - Hematology and Cell countson 05-05-2024 Immature granulocytes/100 WBC (Bld) 0.3 % 0.0-0.5 [facility] Leukocytes [#/volume] correc gali for nucleated erythrocytes in Blood by Automated counon 05-05-2024 WBC corrected for nucl RBC Auto (Bld) [#/Vol] 6.9 10 3/uL 4.0-11.0 [facility] Lymphocytes Auto (Bld) [#/Vo l]on 05-05-2024 Lymphocytes (Bld) [#/Vol] 1.2 10 3/uL 1.2-3.8 [facility] Lymphocytes/100 WBC Auto (Bl d)on 05-05-2024 Lymphocytes/100 WBC (Bld) 18.0 % Low 20.5-60.0 [facility] MCH Auto (RBC) [Entitic mass ]on 05-05-2024 MCH (RBC) [Entitic mass] 29.3 pg 26.7-34.0 [facility] MCHC Auto (RBC) [Mass/Vol]on 05-05-2024 MCHC (RBC) [Mass/Vol] 32.8 g/dL 29.9-35.2 [facility] MCV Auto (RBC) [Entitic vol] on 05-05-2024 MCV (RBC) [Entitic vol] 89.2 fL 81.0-99.0 [facility] Monocytes Auto (Bld) [#/Vol] on 05-05-2024 Monocytes (Bld) [#/Vol] 0.6 10 3/uL 0.3-0.8 [facility] Monocytes/100 WBC Auto (Bld) on 05-05-2024 Monocytes/100 WBC (Bld) 8.7 % 1.7-12.0 [facility] Neutrophils Auto (Bld) [#/Vo l]on 05-05-2024 Neutrophils (Bld) [#/Vol] 4.8 10 3/uL 1.4-6.5 [facility] Neutrophils/100 WBC Auto (Bl d)on 05-05-2024 Neutrophils/100 WBC (Bld) 70.2 % 43.0-75.0 [facility] No Panel Informationon 05-05 Eosinophils # (Auto) 0.1 10 3/uL 0.0-0.7 [facility] Immature Granulocyte # (Auto) 0.02 10 3/uL 0.00-0.03 [facility] Troponin I High Sensitivity 14.0 pg/mL 4.0-51.3 [facility] Comment on above: CUT-OFF POINTS [...] AND CLINICAL INFORMATION. 2725.0 pg/mL High <=1800.0 [facility] 14.0 pg/mL 4.0-51.3 [facility] 1.5 mg/dL Low 1.8-2.4 [facility] 2.6 g/dL Low 3.4-5.0 [facility] 0.1 10 3/uL 0.0-0.7 [facility] 74 U/L 46-116 [facility] 17 U/L 14-59 [facility] 12 U/L Low 15-37 [facility] 40.4 [facility] 0.02 10 3/uL 0.00-0.03 [facility] 69.0 mg/dL High 7.0-18.0 [facility] 0.3 % 0.0-0.5 [facility] 6.1 mg/dL Low 8.5-10.1 [facility] 105 mmol/L 98-107 [facility] 24.1 mmol/L 21.0-32.0 [facility] 1.71 mg/dL High 0.55-1.02 [facility] 35 Low >=60 [facility] 202 mg/dL High 74-106 [facility] 5.9 mmol/L High 3.5-5.1 [facility] 139 mmol/L 136-145 [facility] 0.4 mg/dL 0.2-1.0 [facility] 7.0 g/dL 6.4-8.2 [facility] Platelet mean volume Auto (B ld) [Entitic vol]on 05-05-2024 Platelet mean volume (Bld) [Entitic vol] 11.8 fL 9.5-13.5 [facility] Platelets Auto (Bld) [#/Vol] on 05-05-2024 Platelets (Bld) [#/Vol] 173 10 3/uL 150-450 [facility] RBC Auto (Bld) [#/Vol]on RBC (Bld) [#/Vol] 3.79 10 6/uL Low 4.20-5.40 [facility] Serum or plasma albumin/glob ulin mass ratioon 05-05-2024 Albumin/Globulin [Mass ratio] 0.6 {ratio} [facility] Serum or plasma anion gap de terminationon 05-05-2024 Anion gap [Moles/Vol] 15.8 mmol/L [facility] Basophils Auto (Bld) [#/Vol] on 05-04-2024 Basophils (Bld) [#/Vol] 0.1 10 3/uL 0.0-0.1 [facility] Basophils/100 WBC Auto (Bld) on 05-04-2024 Basophils/100 WBC (Bld) 0.9 % 0.2-2.0 [facility] Eosinophils/100 WBC Auto (Bl d)on 05-04-2024 Eosinophils/100 WBC (Bld) 1.7 % 0.9-7.0 [facility] Erythrocyte distribution wid th Auto (RBC) [Ratio]on 05-04-2024 Erythrocyte distribution width (RBC) [Ratio] 13.6 % 11.0-15.0 [facility] Estimated glomerular filtrat ion rate (GFR) non- Americanon 05-04-2024 GFR/1.73 sq M.predicted among non-blacks MDRD (S/P/Bld) [Vol rate/Area] 21 mL/min/{1.73_m2} Low >=60 [facility] Globulin Calc (S) [Mass/Vol] on 05-04-2024 Globulin (S) [Mass/Vol] 4.9 g/dL [facility] Hematocrit Auto (Bld) [Volum e fraction]on 05-04-2024 Hematocrit (Bld) [Volume fraction] 37.6 % 36.0-48.0 [facility] Hemoglobin [Mass/volume] in Bloodon 05-04-2024 Hemoglobin (Bld) [Mass/Vol] 12.0 g/dL 12.0-16.0 [facility] Laboratory - Chemistry and C hemistry - challengeon 05-04-2024 Bilirubin Ql (U) Negative NEGATIVE [facility] Glucose (U) [Mass/Vol] 250 mg/dL Abnormal NEGATIVE [facility] Ketones Ql (U) Negative NEGATIVE [facility] pH (U) 6.0 [pH] 5.0-9.0 [facility] Specific gravity (U) [Rel density] 1.015 1.005-1.025 [facility] Urobilinogen Qn (U) 0.2 {Meka'U}/dL 0.2-1.0 [facility] Albumin [Mass/Vol] 2.8 g/dL Low 3.4-5.0 [facility] ALP [Catalytic activity/Vol] 86 U/L 46-116 [facility] ALT [Catalytic activity/Vol] 16 U/L 14-59 [facility] Ammonia (P) [Moles/Vol] 12 umol/L 11-32 [facility] AST [Catalytic activity/Vol] 8 U/L Low 15-37 [facility] Bilirubin [Mass/Vol] 0.4 mg/dL 0.2-1.0 [facility] Calcium [Mass/Vol] 8.8 mg/dL 8.5-10.1 [facility] Chloride [Moles/Vol] 101 mmol/L 98-107 [facility] CO2 [Moles/Vol] 22.4 mmol/L 21.0-32.0 [facility] Creatinine [Mass/Vol] 2.24 mg/dL High 0.55-1.02 [facility] GFR/1.73 sq M.predicted MDRD (S/P/Bld) [Vol rate/Area] 26 mL/min/{1.73_m2} Low >=60 [facility] Glucose [Mass/Vol] 369 mg/dL High 74-106 [facility] Lactate [Moles/Vol] 1.2 mmol/L 0.4-2.0 [facility] Magnesium [Mass/Vol] 1.7 mg/dL Low 1.8-2.4 [facility] Natriuretic peptide B (Bld) [Mass/Vol] 2342.0 pg/mL High <=1800.0 [facility] Comment on above: RESULTS CALLED TO RENETTA RenteriaRN @BY Andrea Long, MLTat 1126 Potassium [Moles/Vol] 5.6 mmol/L High 3.5-5.1 [facility] Protein [Mass/Vol] 7.7 g/dL 6.4-8.2 [facility] Sodium [Moles/Vol] 134 mmol/L Low 136-145 [facility] T4 [Mass/Vol] 11.80 ug/dL 4.80-13.90 [facility] TSH Qn 0.933 m[IU]/L 0.358-3.740 [facility] Urea nitrogen [Mass/Vol] 86.0 mg/dL High 7.0-18.0 [facility] Comment on above: RESULTS CALLED TO RENETTA Renteria RN @BY Andrea Jorden [facility], MLTat 1126 Urea nitrogen/Creatinine [Mass ratio] 38.4 mg/mg [facility] Laboratory - Hematology and Cell countson 05-04-2024 Immature granulocytes/100 WBC (Bld) 0.3 % 0.0-0.5 [facility] Laboratory - Microbiology an d Antimicrobial susceptibilityOrdered By: Carl Morales on 05-04-2024 Bacteria identified Cx Nom (U) [facility] Laboratory - Specimen inform ationon 05-04-2024 Appearance (U) SLIGHTLY CLOUDY Abnormal CLEAR [facility] Color (U) YELLOW YELLOW [facility] Laboratory - Urinalysison Hyaline casts LM Ql (Urine sed) RARE [facility] Leukocyte esterase Test strip Ql (U) Negative NEGATIVE [facility] Mucus Ql (Urine sed) NONE SEEN NONE SEEN [facility] Nitrite Ql (U) Negative NEGATIVE [facility] Protein Ql (U) 100 mg/dL Abnormal NEG/TRACE [facility] Leukocytes [#/volume] correc gali for nucleated erythrocytes in Blood by Automated counon 05-04-2024 WBC corrected for nucl RBC Auto (Bld) [#/Vol] 6.9 10 3/uL 4.0-11.0 [facility] Lymphocytes Auto (Bld) [#/Vo l]on 05-04-2024 Lymphocytes (Bld) [#/Vol] 1.2 10 3/uL 1.2-3.8 [facility] Lymphocytes/100 WBC Auto (Bl d)on 05-04-2024 Lymphocytes/100 WBC (Bld) 17.8 % Low 20.5-60.0 [facility] MCH Auto (RBC) [Entitic mass ]on 05-04-2024 MCH (RBC) [Entitic mass] 29.3 pg 26.7-34.0 [facility] MCHC Auto (RBC) [Mass/Vol]on 05-04-2024 MCHC (RBC) [Mass/Vol] 31.9 g/dL 29.9-35.2 [facility] MCV Auto (RBC) [Entitic vol] on 05-04-2024 MCV (RBC) [Entitic vol] 91.9 fL 81.0-99.0 [facility] Monocytes Auto (Bld) [#/Vol] on 05-04-2024 Monocytes (Bld) [#/Vol] 0.7 10 3/uL 0.3-0.8 [facility] Monocytes/100 WBC Auto (Bld) on 05-04-2024 Monocytes/100 WBC (Bld) 10.4 % 1.7-12.0 [facility] Neutrophils Auto (Bld) [#/Vo l]on 05-04-2024 Neutrophils (Bld) [#/Vol] 4.8 10 3/uL 1.4-6.5 [facility] Neutrophils/100 WBC Auto (Bl d)on 05-04-2024 Neutrophils/100 WBC (Bld) 68.9 % 43.0-75.0 [facility] No Panel Informationon 05-04 Acetone Level Negative NEGATIVE [facility] Negative NEGATIVE [facility] Urine Bacteria MODERATE #/HPF Abnormal NONE SEEN [facility] Urine Culture Reflexed ALREADY ORDERED [facility] Urine Microscopic Review YES [facility] Urine Occult Blood MODERATE Abnormal NEGATIVE [facility] Urine Other Casts SEEN #/LPF Abnormal NONE SEEN [facility] Urine Other Crystals None Seen #/HPF None Seen [facility] Urine RBC 2-5 #/HPF Abnormal 0-2 [facility] Urine Squamous Epithelial Cells FEW #/LPF Abnormal NONE/RARE [facility] Urine WBC 2-5 #/HPF Abnormal NONE SEEN [facility] ALREADY ORDERED [facility] YES [facility] SEEN #/LPF Abnormal NONE SEEN [facility] Negative NEGATIVE [facility] None Seen #/HPF None Seen [facility] MODERATE Abnormal NEGATIVE [facility] MODERATE #/HPF Abnormal NONE SEEN [facility] SLIGHTLY CLOUDY Abnormal CLEAR [facility] RARE [facility] YELLOW YELLOW [facility] NONE SEEN NONE SEEN [facility] 250 mg/dL Abnormal NEGATIVE [facility] 2-5 #/HPF Abnormal NONE SEEN [facility] FEW #/LPF Abnormal NONE/RARE [facility] 6.0 5.0-9.0 [facility] 100 mg/dL Abnormal NEG/TRACE [facility] 1.015 1.005-1.025 [facility] 0.2 EU/dL 0.2-1.0 [facility] Eosinophils # (Auto) 0.1 10 3/uL 0.0-0.7 [facility] Immature Granulocyte # (Auto) 0.02 10 3/uL 0.00-0.03 [facility] Troponin I High Sensitivity 10.5 pg/mL 4.0-51.3 [facility] Comment on above: CUT-OFF POINTS [...] Partial Pressure CO2 38.5 mm[Hg] Low 40.0-52.0 [facility] Venous Blood pH 7.353 7.330-7.430 [facility] 0.933 u[iU]/mL 0.358-3.740 [facility] 11.80 ug/dL 4.80-13.90 [facility] 1.7 mg/dL Low 1.8-2.4 [facility] 2342.0 pg/mL High <=1800.0 [facility] 1.2 mmol/L 0.4-2.0 [facility] 10.5 pg/mL 4.0-51.3 [facility] 12 umol/L 11-32 [facility] 38.5 mm[Hg] Low 40.0-52.0 [facility] 7.353 7.330-7.430 [facility] 2.8 g/dL Low 3.4-5.0 [facility] 0.1 10 3/uL 0.0-0.7 [facility] 86 U/L 46-116 [facility] 16 U/L 14-59 [facility] 8 U/L Low 15-37 [facility] 38.4 [facility] 0.02 10 3/uL 0.00-0.03 [facility] 86.0 mg/dL High 7.0-18.0 [facility] 0.3 % 0.0-0.5 [facility] 8.8 mg/dL 8.5-10.1 [facility] 101 mmol/L 98-107 [facility] 22.4 mmol/L 21.0-32.0 [facility] 2.24 mg/dL High 0.55-1.02 [facility] 26 Low >=60 [facility] 369 mg/dL High 74-106 [facility] 5.6 mmol/L High 3.5-5.1 [facility] 134 mmol/L Low 136-145 [facility] 0.4 mg/dL 0.2-1.0 [facility] 7.7 g/dL 6.4-8.2 [facility] No Panel InformationOrdered By: LAMINE SINGH on 05-04-[address] [facility] Platelet mean volume Auto (B ld) [Entitic vol]on 05-04-2024 Platelet mean volume (Bld) [Entitic vol] 11.4 fL 9.5-13.5 [facility] Platelets Auto (Bld) [#/Vol] on 05-04-2024 Platelets (Bld) [#/Vol] 160 10 3/uL 150-450 [facility] RBC Auto (Bld) [#/Vol]on RBC (Bld) [#/Vol] 4.09 10 6/uL Low 4.20-5.40 [facility] Serum or plasma albumin/glob ulin mass ratioon 05-04-2024 Albumin/Globulin [Mass ratio] 0.6 {ratio} [facility] Serum or plasma anion gap de terminationon 05-04-2024 Anion gap [Moles/Vol] 16.2 mmol/L [facility] Basophils Auto (Bld) [#/Vol] on 05-01-2024 Basophils (Bld) [#/Vol] 0.1 10 3/uL 0.0-0.1 [facility] Basophils/100 WBC Auto (Bld) on 05-01-2024 Basophils/100 WBC (Bld) 0.7 % 0.2-2.0 [facility] Eosinophils/100 WBC Auto (Bl d)on 05-01-2024 Eosinophils/100 WBC (Bld) 2.3 % 0.9-7.0 [facility] Erythrocyte distribution wid th Auto (RBC) [Ratio]on 05-01-2024 Erythrocyte distribution width (RBC) [Ratio] 13.6 % 11.0-15.0 [facility] Estimated glomerular filtrat ion rate (GFR) non- Americanon 05-01-2024 GFR/1.73 sq M.predicted among non-blacks MDRD (S/P/Bld) [Vol rate/Area] 22 mL/min/{1.73_m2} Low >=60 [facility] Globulin Calc (S) [Mass/Vol] on 05-01-2024 Globulin (S) [Mass/Vol] 4.4 g/dL [facility] Hematocrit Auto (Bld) [Volum e fraction]on 05-01-2024 Hematocrit (Bld) [Volume fraction] 37.5 % 36.0-48.0 [facility] Hemoglobin [Mass/volume] in Bloodon 05-01-2024 Hemoglobin (Bld) [Mass/Vol] 12.1 g/dL 12.0-16.0 [facility] Laboratory - Chemistry and C hemistry - challengeon 05-01-2024 Calcium [Mass/Vol] 9.2 mg/dL 8.5-10.1 [facility] Chloride [Moles/Vol] 104 mmol/L 98-107 [facility] CO2 [Moles/Vol] 23.2 mmol/L 21.0-32.0 [facility] Creatinine [Mass/Vol] 2.14 mg/dL High 0.55-1.02 [facility] GFR/1.73 sq M.predicted MDRD (S/P/Bld) [Vol rate/Area] 27 mL/min/{1.73_m2} Low >=60 [facility] Glucose [Mass/Vol] 220 mg/dL High 74-106 [facility] Potassium [Moles/Vol] 5.3 mmol/L High 3.5-5.1 [facility] Sodium [Moles/Vol] 134 mmol/L Low 136-145 [facility] Urea nitrogen [Mass/Vol] 87.0 mg/dL High 7.0-18.0 [facility] Comment on above: RESULTS CALLED TO Klaus Michaels RN @BY [employer] [phone] Urea nitrogen/Creatinine [Mass ratio] 40.7 mg/mg [facility] Albumin [Mass/Vol] 2.8 g/dL Low 3.4-5.0 [facility] ALP [Catalytic activity/Vol] 80 U/L 46-116 [facility] ALT [Catalytic activity/Vol] 16 U/L 14-59 [facility] AST [Catalytic activity/Vol] 11 U/L Low 15-37 [facility] Bilirubin [Mass/Vol] 0.4 mg/dL 0.2-1.0 [facility] Natriuretic peptide B (Bld) [Mass/Vol] 1624.0 pg/mL <=1800.0 [facility] Protein [Mass/Vol] 7.2 g/dL 6.4-8.2 [facility] Laboratory - Hematology and Cell countson 05-01-2024 Immature granulocytes/100 WBC (Bld) 0.1 % 0.0-0.5 [facility] Leukocytes [#/volume] correc gali for nucleated erythrocytes in Blood by Automated counon 05-01-2024 WBC corrected for nucl RBC Auto (Bld) [#/Vol] 7.4 10 3/uL 4.0-11.0 [facility] Lymphocytes Auto (Bld) [#/Vo l]on 05-01-2024 Lymphocytes (Bld) [#/Vol] 2.2 10 3/uL 1.2-3.8 [facility] Lymphocytes/100 WBC Auto (Bl d)on 05-01-2024 Lymphocytes/100 WBC (Bld) 29.4 % 20.5-60.0 [facility] MCH Auto (RBC) [Entitic mass ]on 05-01-2024 MCH (RBC) [Entitic mass] 29.2 pg 26.7-34.0 [facility] MCHC Auto (RBC) [Mass/Vol]on 05-01-2024 MCHC (RBC) [Mass/Vol] 32.3 g/dL 29.9-35.2 [facility] MCV Auto (RBC) [Entitic vol] on 05-01-2024 MCV (RBC) [Entitic vol] 90.4 fL 81.0-99.0 [facility] Monocytes Auto (Bld) [#/Vol] on 05-01-2024 Monocytes (Bld) [#/Vol] 0.9 10 3/uL High 0.3-0.8 [facility] Monocytes/100 WBC Auto (Bld) on 05-01-2024 Monocytes/100 WBC (Bld) 11.5 % 1.7-12.0 [facility] Neutrophils Auto (Bld) [#/Vo l]on 05-01-2024 Neutrophils (Bld) [#/Vol] 4.1 10 3/uL 1.4-6.5 [facility] Neutrophils/100 WBC Auto (Bl d)on 05-01-2024 Neutrophils/100 WBC (Bld) 56.0 % 43.0-75.0 [facility] No Panel Informationon 05-[address] [facility] 87.0 mg/dL High 7.0-18.0 [facility] 9.2 mg/dL 8.5-10.1 [facility] 104 mmol/L 98-107 [facility] 23.2 mmol/L 21.0-32.0 [facility] 2.14 mg/dL High 0.55-1.02 [facility] 27 Low >=60 [facility] 220 mg/dL High 74-106 [facility] 5.3 mmol/L High 3.5-5.1 [facility] 134 mmol/L Low 136-145 [facility] Eosinophils # (Auto) 0.2 10 3/uL 0.0-0.7 [facility] Immature Granulocyte # (Auto) 0.01 10 3/uL 0.00-0.03 [facility] 1624.0 pg/mL <=1800.0 [facility] 2.8 g/dL Low 3.4-5.0 [facility] 0.2 10 3/uL 0.0-0.7 [facility] 80 U/L 46-116 [facility] 16 U/L 14-59 [facility] 11 U/L Low 15-37 [facility] 0.01 10 3/uL 0.00-0.03 [facility] 0.1 % 0.0-0.5 [facility] 0.4 mg/dL 0.2-1.0 [facility] 7.2 g/dL 6.4-8.2 [facility] Platelet mean volume Auto (B ld) [Entitic vol]on 05-01-2024 Platelet mean volume (Bld) [Entitic vol] 11.6 fL 9.5-13.5 [facility] Platelets Auto (Bld) [#/Vol] on 05-01-2024 Platelets (Bld) [#/Vol] 151 10 3/uL 150-450 [facility] RBC Auto (Bld) [#/Vol]on RBC (Bld) [#/Vol] 4.15 10 6/uL Low 4.20-5.40 [facility] Serum or plasma albumin/glob ulin mass ratioon 05-01-2024 Albumin/Globulin [Mass ratio] 0.6 {ratio} [facility] Serum or plasma anion gap de terminationon 05-01-2024 Anion gap [Moles/Vol] 12.1 mmol/L Fi [facility] Basophils Auto (Bld) [#/Vol] on 04-30-2024 Basophils (Bld) [#/Vol] 0.1 10 3/uL 0.0-0.1 [facility] Basophils/100 WBC Auto (Bld) on 04-30-2024 Basophils/100 WBC (Bld) 0.9 % 0.2-2.0 [facility] Eosinophils/100 WBC Auto (Bl d)on 04-30-2024 Eosinophils/100 WBC (Bld) 2.4 % 0.9-7.0 [facility] Erythrocyte distribution wid th Auto (RBC) [Ratio]on 04-30-2024 Erythrocyte distribution width (RBC) [Ratio] 13.5 % 11.0-15.0 [facility] Estimated glomerular filtrat ion rate (GFR) non- Americanon 04-30-2024 GFR/1.73 sq M.predicted among non-blacks MDRD (S/P/Bld) [Vol rate/Area] 15 mL/min/{1.73_m2} Low >=60 [facility] Fibrin D-dimer [Presence] in Platelet poor plasma by Latex agglutinationon 04-30-2024 Fibrin D-dimer LA Ql (PPP) 0.24 mg/L FEU <=0.59 [facility] Comment on above: Increases in [...] Hematocrit (Bld) [Volume fraction] 38.6 % 36.0-48.0 [facility] Hemoglobin [Mass/volume] in Bloodon 04-30-2024 Hemoglobin (Bld) [Mass/Vol] 12.5 g/dL 12.0-16.0 [facility] Laboratory - Chemistry and C hemistry - challengeon 04-30-2024 Calcium [Mass/Vol] 9.0 mg/dL 8.5-10.1 [facility] Chloride [Moles/Vol] 100 mmol/L 98-107 [facility] CO2 [Moles/Vol] 24.4 mmol/L 21.0-32.0 [facility] Creatinine [Mass/Vol] 3.02 mg/dL High 0.55-1.02 [facility] GFR/1.73 sq M.predicted MDRD (S/P/Bld) [Vol rate/Area] 18 mL/min/{1.73_m2} Low >=60 [facility] Glucose [Mass/Vol] 271 mg/dL High 74-106 [facility] Magnesium [Mass/Vol] 1.8 mg/dL 1.8-2.4 [facility] Natriuretic peptide B (Bld) [Mass/Vol] 1485.0 pg/mL <=1800.0 [facility] Potassium [Moles/Vol] 5.3 mmol/L High 3.5-5.1 [facility] Sodium [Moles/Vol] 133 mmol/L Low 136-145 [facility] Urea nitrogen [Mass/Vol] 99.0 mg/dL High 7.0-18.0 [facility] Comment on above: RESULTS CALLED TO Yoel WADE)@BY Franchesca Huynh MLT at 0603 Urea nitrogen/Creatinine [Mass ratio] 32.8 mg/mg [facility] Laboratory - Hematology and Cell countson 04-30-2024 Immature granulocytes/100 WBC (Bld) 0.1 % 0.0-0.5 [facility] Leukocytes [#/volume] correc gali for nucleated erythrocytes in Blood by Automated counon 04-30-2024 WBC corrected for nucl RBC Auto (Bld) [#/Vol] 7.5 10 3/uL 4.0-11.0 [facility] Lymphocytes Auto (Bld) [#/Vo l]on 04-30-2024 Lymphocytes (Bld) [#/Vol] 2.1 10 3/uL 1.2-3.8 [facility] Lymphocytes/100 WBC Auto (Bl d)on 04-30-2024 Lymphocytes/100 WBC (Bld) 27.8 % 20.5-60.0 [facility] MCH Auto (RBC) [Entitic mass ]on 04-30-2024 MCH (RBC) [Entitic mass] 29.6 pg 26.7-34.0 [facility] MCHC Auto (RBC) [Mass/Vol]on 04-30-2024 MCHC (RBC) [Mass/Vol] 32.4 g/dL 29.9-35.2 [facility] MCV Auto (RBC) [Entitic vol] on 04-30-2024 MCV (RBC) [Entitic vol] 91.5 fL 81.0-99.0 [facility] Monocytes Auto (Bld) [#/Vol] on 04-30-2024 Monocytes (Bld) [#/Vol] 0.8 10 3/uL 0.3-0.8 [facility] Monocytes/100 WBC Auto (Bld) on 04-30-2024 Monocytes/100 WBC (Bld) 10.0 % 1.7-12.0 [facility] Neutrophils Auto (Bld) [#/Vo l]on 04-30-2024 Neutrophils (Bld) [#/Vol] 4.4 10 3/uL 1.4-6.5 [facility] Neutrophils/100 WBC Auto (Bl d)on 04-30-2024 Neutrophils/100 WBC (Bld) 58.8 % 43.0-75.0 [facility] No Panel Informationon 04-30 Troponin I High Sensitivity 12.6 pg/mL 4.0-51.3 [facility] Comment on above: CUT-OFF POINTS [...] DIAGNOSTIC AND CLINICAL INFORMATION. 1.8 mg/dL 1.8-2.4 [facility] 1485.0 pg/mL <=1800.0 [facility] 12.6 pg/mL 4.0-51.3 [facility] 32.8 [facility] 99.0 mg/dL High 7.0-18.0 [facility] 9.0 mg/dL 8.5-10.1 [facility] 100 mmol/L 98-107 [facility] 24.4 mmol/L 21.0-32.0 [facility] 3.02 mg/dL High 0.55-1.02 [facility] 18 Low >=60 [facility] 271 mg/dL High 74-106 [facility] 5.3 mmol/L High 3.5-5.1 [facility] 133 mmol/L Low 136-145 [facility] Eosinophils # (Auto) 0.2 10 3/uL 0.0-0.7 [facility] Immature Granulocyte # (Auto) 0.01 10 3/uL 0.00-0.03 [facility] 0.2 10 3/uL 0.0-0.7 [facility] 0.01 10 3/uL 0.00-0.03 [facility] 0.1 % 0.0-0.5 [facility] Platelet mean volume Auto (B ld) [Entitic vol]on 04-30-2024 Platelet mean volume (Bld) [Entitic vol] 12.2 fL 9.5-13.5 [facility] Platelets Auto (Bld) [#/Vol] on 04-30-2024 Platelets (Bld) [#/Vol] 221 10 3/uL 150-450 [facility] RBC Auto (Bld) [#/Vol]on RBC (Bld) [#/Vol] 4.22 10 6/uL 4.20-5.40 [facility] Serum or plasma anion gap de terminationon 04-30-2024 Anion gap [Moles/Vol] 13.9 mmol/L Fi [facility] Basophils Auto (Bld) [#/Vol] on 03-28-2024 Basophils (Bld) [#/Vol] 0.1 10 3/uL 0.0-0.1 [facility] Basophils/100 WBC Auto (Bld) on 03-28-2024 Basophils/100 WBC (Bld) 0.9 % 0.2-2.0 [facility] Eosinophils/100 WBC Auto (Bl d)on 03-28-2024 Eosinophils/100 WBC (Bld) 1.7 % 0.9-7.0 [facility] Erythrocyte distribution wid th Auto (RBC) [Ratio]on 03-28-2024 Erythrocyte distribution width (RBC) [Ratio] 14.2 % 11.0-15.0 [facility] Estimated glomerular filtrat ion rate (GFR) non- Americanon 03-28-2024 GFR/1.73 sq M.predicted among non-blacks MDRD (S/P/Bld) [Vol rate/Area] 39 mL/min/{1.73_m2} Low >=60 [facility] Globulin Calc (S) [Mass/Vol] on 03-28-2024 Globulin (S) [Mass/Vol] 4.8 g/dL [facility] Hematocrit Auto (Bld) [Volum e fraction]on 03-28-2024 Hematocrit (Bld) [Volume fraction] 40.0 % 36.0-48.0 [facility] Hemoglobin [Mass/volume] in Bloodon 03-28-2024 Hemoglobin (Bld) [Mass/Vol] 12.6 g/dL 12.0-16.0 [facility] Laboratory - Chemistry and C hemistry - challengeon 03-28-2024 Albumin [Mass/Vol] 2.5 g/dL Low 3.4-5.0 [facility] ALP [Catalytic activity/Vol] 93 U/L 46-116 [facility] ALT [Catalytic activity/Vol] 9 U/L Low 14-59 [facility] AST [Catalytic activity/Vol] 10 U/L Low 15-37 [facility] Bilirubin [Mass/Vol] 0.9 mg/dL 0.2-1.0 [facility] Calcium [Mass/Vol] 8.5 mg/dL 8.5-10.1 [facility] Chloride [Moles/Vol] 96 mmol/L Low 98-107 [facility] CO2 [Moles/Vol] 27.1 mmol/L 21.0-32.0 [facility] Creatinine [Mass/Vol] 1.33 mg/dL High 0.55-1.02 [facility] GFR/1.73 sq M.predicted MDRD (S/P/Bld) [Vol rate/Area] 47 mL/min/{1.73_m2} Low >=60 [facility] Glucose [Mass/Vol] 261 mg/dL High 74-106 [facility] Magnesium [Mass/Vol] 1.8 mg/dL 1.8-2.4 [facility] Natriuretic peptide B (Bld) [Mass/Vol] 3338.0 pg/mL High <=1800.0 [facility] Comment on above: RESULTS CALLED TO Claritza ButtsRN)@BY Franchesca Huynh MLT at 0554 Potassium [Moles/Vol] 3.8 mmol/L 3.5-5.1 [facility] Protein [Mass/Vol] 7.3 g/dL 6.4-8.2 [facility] Sodium [Moles/Vol] 133 mmol/L Low 136-145 [facility] Urea nitrogen [Mass/Vol] 36.0 mg/dL High 7.0-18.0 [facility] Urea nitrogen/Creatinine [Mass ratio] 27.1 mg/mg [facility] Laboratory - Hematology and Cell countson 03-28-2024 Immature granulocytes/100 WBC (Bld) 0.4 % 0.0-0.5 [facility] Leukocytes [#/volume] correc gali for nucleated erythrocytes in Blood by Automated counon 03-28-2024 WBC corrected for nucl RBC Auto (Bld) [#/Vol] 8.4 10 3/uL 4.0-11.0 [facility] Lymphocytes Auto (Bld) [#/Vo l]on 03-28-2024 Lymphocytes (Bld) [#/Vol] 1.8 10 3/uL 1.2-3.8 [facility] Lymphocytes/100 WBC Auto (Bl d)on 03-28-2024 Lymphocytes/100 WBC (Bld) 21.4 % 20.5-60.0 [facility] MCH Auto (RBC) [Entitic mass ]on 03-28-2024 MCH (RBC) [Entitic mass] 29.0 pg 26.7-34.0 [facility] MCHC Auto (RBC) [Mass/Vol]on 03-28-2024 MCHC (RBC) [Mass/Vol] 31.5 g/dL 29.9-35.2 [facility] MCV Auto (RBC) [Entitic vol] on 03-28-2024 MCV (RBC) [Entitic vol] 92.0 fL 81.0-99.0 [facility] Monocytes Auto (Bld) [#/Vol] on 03-28-2024 Monocytes (Bld) [#/Vol] 0.8 10 3/uL 0.3-0.8 [facility] Monocytes/100 WBC Auto (Bld) on 03-28-2024 Monocytes/100 WBC (Bld) 9.7 % 1.7-12.0 [facility] Neutrophils Auto (Bld) [#/Vo l]on 03-28-2024 Neutrophils (Bld) [#/Vol] 5.6 10 3/uL 1.4-6.5 [facility] Neutrophils/100 WBC Auto (Bl d)on 03-28-2024 Neutrophils/100 WBC (Bld) 65.9 % 43.0-75.0 [facility] No Panel Informationon 03-28 Eosinophils # (Auto) 0.1 10 3/uL 0.0-0.7 [facility] Immature Granulocyte # (Auto) 0.03 10 3/uL 0.00-0.03 [facility] 3338.0 pg/mL High <=1800.0 [facility] 1.8 mg/dL 1.8-2.4 [facility] 2.5 g/dL Low 3.4-5.0 [facility] 0.1 10 3/uL 0.0-0.7 [facility] 93 U/L 46-116 [facility] 9 U/L Low 14-59 [facility] 10 U/L Low 15-37 [facility] 27.1 [facility] 0.03 10 3/uL 0.00-0.03 [facility] 36.0 mg/dL High 7.0-18.0 [facility] 0.4 % 0.0-0.5 [facility] 8.5 mg/dL 8.5-10.1 [facility] 96 mmol/L Low 98-107 [facility] 27.1 mmol/L 21.0-32.0 [facility] 1.33 mg/dL High 0.55-1.02 [facility] 47 Low >=60 [facility] 261 mg/dL High 74-106 [facility] 3.8 mmol/L 3.5-5.1 [facility] 133 mmol/L Low 136-145 [facility] 0.9 mg/dL 0.2-1.0 [facility] 7.3 g/dL 6.4-8.2 [facility] Platelet mean volume Auto (B ld) [Entitic vol]on 03-28-2024 Platelet mean volume (Bld) [Entitic vol] 10.5 fL 9.5-13.5 [facility] Platelets Auto (Bld) [#/Vol] on 03-28-2024 Platelets (Bld) [#/Vol] 197 10 3/uL 150-450 [facility] RBC Auto (Bld) [#/Vol]on RBC (Bld) [#/Vol] 4.35 10 6/uL 4.20-5.40 [facility] Serum or plasma albumin/glob ulin mass ratioon 03-28-2024 Albumin/Globulin [Mass ratio] 0.5 {ratio} [facility] Serum or plasma anion gap de terminationon 03-28-2024 Anion gap [Moles/Vol] 13.7 mmol/L [facility] Basophils Auto (Bld) [#/Vol] on 03-27-2024 Basophils (Bld) [#/Vol] 0.1 10 3/uL 0.0-0.1 [facility] Basophils/100 WBC Auto (Bld) on 03-27-2024 Basophils/100 WBC (Bld) 0.8 % 0.2-2.0 [facility] Eosinophils/100 WBC Auto (Bl d)on 03-27-2024 Eosinophils/100 WBC (Bld) 1.1 % 0.9-7.0 [facility] Erythrocyte distribution wid th Auto (RBC) [Ratio]on 03-27-2024 Erythrocyte distribution width (RBC) [Ratio] 14.2 % 11.0-15.0 [facility] Estimated glomerular filtrat ion rate (GFR) non- Americanon 03-27-2024 GFR/1.73 sq M.predicted among non-blacks MDRD (S/P/Bld) [Vol rate/Area] 44 mL/min/{1.73_m2} Low >=60 [facility] Globulin Calc (S) [Mass/Vol] on 03-27-2024 Globulin (S) [Mass/Vol] 4.6 g/dL [facility] Glucose mean value [Mass/vol ume] in Blood Estimated from glycated hemoglobinon 03-27-2024 Average glucose Estimated from glycated hemoglobin (Bld) [Mass/Vol] 275 mg/dL [facility] Hematocrit Auto (Bld) [Volum e fraction]on 03-27-2024 Hematocrit (Bld) [Volume fraction] 37.4 % 36.0-48.0 [facility] Hemoglobin [Mass/volume] in Bloodon 03-27-2024 Hemoglobin (Bld) [Mass/Vol] 12.1 g/dL 12.0-16.0 [facility] Laboratory - Chemistry and C hemistry - challengeon 03-27-2024 Albumin [Mass/Vol] 2.6 g/dL Low 3.4-5.0 [facility] ALP [Catalytic activity/Vol] 89 U/L 46-116 [facility] ALT [Catalytic activity/Vol] 12 U/L Low 14-59 [facility] AST [Catalytic activity/Vol] 9 U/L Low 15-37 [facility] Bilirubin [Mass/Vol] 0.9 mg/dL 0.2-1.0 [facility] Calcium [Mass/Vol] 9.1 mg/dL 8.5-10.1 [facility] Chloride [Moles/Vol] 99 mmol/L 98-107 [facility] CO2 [Moles/Vol] 28.8 mmol/L 21.0-32.0 [facility] Creatinine [Mass/Vol] 1.19 mg/dL High 0.55-1.02 [facility] GFR/1.73 sq M.predicted MDRD (S/P/Bld) [Vol rate/Area] 53 mL/min/{1.73_m2} Low >=60 [facility] Glucose [Mass/Vol] 273 mg/dL High 74-106 [facility] Magnesium [Mass/Vol] 1.7 mg/dL Low 1.8-2.4 [facility] Natriuretic peptide B (Bld) [Mass/Vol] 4572.0 pg/mL High <=1800.0 [facility] Comment on above: RESULTS CALLED TO SA RA MIGUEL RN @BY Alla Kevin [phone] Potassium [Moles/Vol] 3.6 mmol/L 3.5-5.1 [facility] Protein [Mass/Vol] 7.2 g/dL 6.4-8.2 [facility] Sodium [Moles/Vol] 135 mmol/L Low 136-145 [facility] Urea nitrogen [Mass/Vol] 34.0 mg/dL High 7.0-18.0 [facility] Urea nitrogen/Creatinine [Mass ratio] 28.6 mg/mg [facility] Laboratory - Hematology and Cell countson 03-27-2024 HbA1c (Bld) [Mass fraction] 11.2 % High 4.5-6.2 [facility] Comment on above: ADA RECOMMENDED LIMI T 4.0 - 6.0ADA THERAPEUTIC TARGET < 7.0ACTION SUGGESTED> 7.0 Immature granulocytes/100 WBC (Bld) 0.3 % 0.0-0.5 [facility] Leukocytes [#/volume] correc gali for nucleated erythrocytes in Blood by Automated counon 03-27-2024 WBC corrected for nucl RBC Auto (Bld) [#/Vol] 9.7 10 3/uL 4.0-11.0 [facility] Lymphocytes Auto (Bld) [#/Vo l]on 03-27-2024 Lymphocytes (Bld) [#/Vol] 1.3 10 3/uL 1.2-3.8 [facility] Lymphocytes/100 WBC Auto (Bl d)on 03-27-2024 Lymphocytes/100 WBC (Bld) 13.3 % Low 20.5-60.0 [facility] MCH Auto (RBC) [Entitic mass ]on 03-27-2024 MCH (RBC) [Entitic mass] 29.2 pg 26.7-34.0 [facility] MCHC Auto (RBC) [Mass/Vol]on 03-27-2024 MCHC (RBC) [Mass/Vol] 32.4 g/dL 29.9-35.2 [facility] MCV Auto (RBC) [Entitic vol] on 03-27-2024 MCV (RBC) [Entitic vol] 90.3 fL 81.0-99.0 [facility] Monocytes Auto (Bld) [#/Vol] on 03-27-2024 Monocytes (Bld) [#/Vol] 0.8 10 3/uL 0.3-0.8 [facility] Monocytes/100 WBC Auto (Bld) on 03-27-2024 Monocytes/100 WBC (Bld) 8.4 % 1.7-12.0 [facility] Neutrophils Auto (Bld) [#/Vo l]on 03-27-2024 Neutrophils (Bld) [#/Vol] 7.4 10 3/uL High 1.4-6.5 [facility] Neutrophils/100 WBC Auto (Bl d)on 03-27-2024 Neutrophils/100 WBC (Bld) 76.1 % High 43.0-75.0 [facility] No Panel Informationon 03-27 Eosinophils # (Auto) 0.1 10 3/uL 0.0-0.7 [facility] Immature Granulocyte # (Auto) 0.03 10 3/uL 0.00-0.03 [facility] 4572.0 pg/mL High <=1800.0 [facility] 1.7 mg/dL Low 1.8-2.4 [facility] 11.2 % High 4.5-6.2 [facility] 2.6 g/dL Low 3.4-5.0 [facility] 0.1 10 3/uL 0.0-0.7 [facility] 89 U/L 46-116 [facility] 12 U/L Low 14-59 [facility] 9 U/L Low 15-37 [facility] 28.6 [facility] 0.03 10 3/uL 0.00-0.03 [facility] 34.0 mg/dL High 7.0-18.0 [facility] 0.3 % 0.0-0.5 [facility] 9.1 mg/dL 8.5-10.1 [facility] 99 mmol/L 98-107 [facility] 28.8 mmol/L 21.0-32.0 [facility] 1.19 mg/dL High 0.55-1.02 [facility] 53 Low >=60 [facility] 273 mg/dL High 74-106 [facility] 3.6 mmol/L 3.5-5.1 [facility] 135 mmol/L Low 136-145 [facility] 0.9 mg/dL 0.2-1.0 [facility] 7.2 g/dL 6.4-8.2 [facility] Platelet mean volume Auto (B ld) [Entitic vol]on 03-27-2024 Platelet mean volume (Bld) [Entitic vol] 10.6 fL 9.5-13.5 [facility] Platelets Auto (Bld) [#/Vol] on 03-27-2024 Platelets (Bld) [#/Vol] 204 10 3/uL 150-450 [facility] RBC Auto (Bld) [#/Vol]on RBC (Bld) [#/Vol] 4.14 10 6/uL Low 4.20-5.40 [facility] Serum or plasma albumin/glob ulin mass ratioon 03-27-2024 Albumin/Globulin [Mass ratio] 0.6 {ratio} [facility] Serum or plasma anion gap de terminationon 03-27-2024 Anion gap [Moles/Vol] 10.8 mmol/L [facility] Basophils Auto (Bld) [#/Vol] on 03-26-2024 Basophils (Bld) [#/Vol] 0.1 10 3/uL 0.0-0.1 [facility] Basophils/100 WBC Auto (Bld) on 03-26-2024 Basophils/100 WBC (Bld) 0.8 % 0.2-2.0 [facility] Eosinophils/100 WBC Auto (Bl d)on 03-26-2024 Eosinophils/100 WBC (Bld) 1.2 % 0.9-7.0 [facility] Erythrocyte distribution wid th Auto (RBC) [Ratio]on 03-26-2024 Erythrocyte distribution width (RBC) [Ratio] 14.5 % 11.0-15.0 [facility] Estimated glomerular filtrat ion rate (GFR) non- Americanon 03-26-2024 GFR/1.73 sq M.predicted among non-blacks MDRD (S/P/Bld) [Vol rate/Area] 46 mL/min/{1.73_m2} Low >=60 [facility] Glucose mean value [Mass/vol ume] in Blood Estimated from glycated hemoglobinon 03-26-2024 Average glucose Estimated from glycated hemoglobin (Bld) [Mass/Vol] 275 mg/dL [facility] Hematocrit Auto (Bld) [Volum e fraction]on 03-26-2024 Hematocrit (Bld) [Volume fraction] 40.1 % 36.0-48.0 [facility] Hemoglobin [Mass/volume] in Bloodon 03-26-2024 Hemoglobin (Bld) [Mass/Vol] 12.7 g/dL 12.0-16.0 [facility] Laboratory - Chemistry and C hemistry - challengeon 03-26-2024 Calcium [Mass/Vol] 9.1 mg/dL 8.5-10.1 [facility] Chloride [Moles/Vol] 102 mmol/L 98-107 [facility] CO2 [Moles/Vol] 28.5 mmol/L 21.0-32.0 [facility] Creatinine [Mass/Vol] 1.14 mg/dL High 0.55-1.02 [facility] Free T4 [Mass/Vol] 1.29 ng/dL 0.76-1.46 [facility] GFR/1.73 sq M.predicted MDRD (S/P/Bld) [Vol rate/Area] 56 mL/min/{1.73_m2} Low >=60 [facility] Glucose [Mass/Vol] 246 mg/dL High 74-106 [facility] Natriuretic peptide B (Bld) [Mass/Vol] 2890.0 pg/mL High <=1800.0 [facility] Comment on above: RESULTS CALLED TO YOEL ROBIN RN @BY Alla Kunz 0556 Potassium [Moles/Vol] 4.3 mmol/L 3.5-5.1 [facility] Sodium [Moles/Vol] 136 mmol/L 136-145 [facility] TSH Qn 6.001 m[IU]/L High 0.358-3.740 [facility] Urea nitrogen [Mass/Vol] 35.0 mg/dL High 7.0-18.0 [facility] Urea nitrogen/Creatinine [Mass ratio] 30.7 mg/mg [facility] Laboratory - Hematology and Cell countson 03-26-2024 HbA1c (Bld) [Mass fraction] 11.2 % High 4.5-6.2 [facility] Comment on above: ADA RECOMMENDED LIMI T 4.0 - 6.0ADA THERAPEUTIC TARGET < 7.0ACTION SUGGESTED> 7.0 Immature granulocytes/100 WBC (Bld) 0.2 % 0.0-0.5 [facility] Leukocytes [#/volume] correc gali for nucleated erythrocytes in Blood by Automated counon 03-26-2024 WBC corrected for nucl RBC Auto (Bld) [#/Vol] 8.3 10 3/uL 4.0-11.0 [facility] Lymphocytes Auto (Bld) [#/Vo l]on 03-26-2024 Lymphocytes (Bld) [#/Vol] 1.4 10 3/uL 1.2-3.8 [facility] Lymphocytes/100 WBC Auto (Bl d)on 03-26-2024 Lymphocytes/100 WBC (Bld) 16.5 % Low 20.5-60.0 [facility] MCH Auto (RBC) [Entitic mass ]on 03-26-2024 MCH (RBC) [Entitic mass] 29.1 pg 26.7-34.0 [facility] MCHC Auto (RBC) [Mass/Vol]on 03-26-2024 MCHC (RBC) [Mass/Vol] 31.7 g/dL 29.9-35.2 [facility] MCV Auto (RBC) [Entitic vol] on 03-26-2024 MCV (RBC) [Entitic vol] 92.0 fL 81.0-99.0 [facility] Monocytes Auto (Bld) [#/Vol] on 03-26-2024 Monocytes (Bld) [#/Vol] 0.7 10 3/uL 0.3-0.8 [facility] Monocytes/100 WBC Auto (Bld) on 03-26-2024 Monocytes/100 WBC (Bld) 7.9 % 1.7-12.0 [facility] Neutrophils Auto (Bld) [#/Vo l]on 03-26-2024 Neutrophils (Bld) [#/Vol] 6.1 10 3/uL 1.4-6.5 [facility] Neutrophils/100 WBC Auto (Bl d)on 03-26-2024 Neutrophils/100 WBC (Bld) 73.4 % 43.0-75.0 [facility] No Panel Informationon 03-26 Eosinophils # (Auto) 0.1 10 3/uL 0.0-0.7 [facility] Immature Granulocyte # (Auto) 0.02 10 3/uL 0.00-0.03 [facility] Troponin I High Sensitivity 12.4 pg/mL 4.0-51.3 [facility] Comment on above: CUT-OFF POINTS [...] DIAGNOSTIC AND CLINICAL INFORMATION. 1.29 ng/dL 0.76-1.46 [facility] 6.001 u[iU]/mL High 0.358-3.740 [facility] 2890.0 pg/mL High <=1800.0 [facility] 12.4 pg/mL 4.0-51.3 [facility] 11.2 % High 4.5-6.2 [facility] 30.7 [facility] 35.0 mg/dL High 7.0-18.0 [facility] 0.1 10 3/uL 0.0-0.7 [facility] 9.1 mg/dL 8.5-10.1 [facility] 102 mmol/L 98-107 [facility] 28.5 mmol/L 21.0-32.0 [facility] 1.14 mg/dL High 0.55-1.02 [facility] 0.02 10 3/uL 0.00-0.03 [facility] 56 Low >=60 [facility] 0.2 % 0.0-0.5 [facility] 246 mg/dL High 74-106 [facility] 4.3 mmol/L 3.5-5.1 [facility] 136 mmol/L 136-[facility] [facility] Platelet mean volume Auto (B ld) [Entitic vol]on 03-26-2024 Platelet mean volume (Bld) [Entitic vol] 10.8 fL 9.5-13.5 [facility] Platelets Auto (Bld) [#/Vol] on 03-26-2024 Platelets (Bld) [#/Vol] 225 10 3/uL 150-450 [facility] RBC Auto (Bld) [#/Vol]on RBC (Bld) [#/Vol] 4.36 10 6/uL 4.20-5.40 [facility] Serum or plasma anion gap de terminationon 03-26-2024 Anion gap [Moles/Vol] 9.8 mmol/L [facility] GI PANEL (PCR)on 03-06-2023 Adenovirus F 40/41 Not detected Normal NOT DETECTED [facility] Comment on above: Performed By: #### P OCGLUC #### [facility] [address] [place] [address] Dr. Kasia Nath Astrovirus Not detected Normal NOT DETECTED [facility] Comment on above: Performed By: #### P OCGLUC #### [facility] [address] [place] [address] Dr. Kasia Nath C. Diff toxin A/B Detected Critically abnormal NOT DETECTED [facility] Comment on above: Performed By: #### P OCGLUC #### [facility] [address] [place] [address] Dr. Kasia Nath Campylobacter Detected Critically abnormal NOT DETECTED [facility] Comment on above: Performed By: #### P OCGLUC #### [facility] [address] [place] [address] Dr. Kasia Nath Cryptosporidium Not detected Normal NOT DETECTED [facility] Comment on above: Performed By: #### P OCGLUC #### [facility] [address] [place] [address] Dr. Kasia Nath Cyclos. Cayetanensis Not detected Normal NOT DETECTED [facility] Comment on above: Performed By: #### P OCGLUC #### [facility] [address] [place] [address] Dr. Kasia Nath E. Coli O157 Not Applicable Normal Not Applicable [facility] Comment on above: Performed By: #### P OCGLUC #### [facility] [address] [place] [address] Dr. Kasia Nath E. histolytica Not detected Normal NOT DETECTED [facility] Comment on above: Performed By: #### P OCGLUC #### [facility] [address] [place] [address] Dr. Kasia Nath EAEC Not detected Normal NOT DETECTED [facility] Comment on above: Performed By: #### P OCGLUC #### [facility] [address] [place] [address] Dr. Kasia Nath EIEC Not detected Normal NOT DETECTED [facility] Comment on above: Performed By: #### P OCGLUC #### [facility] [address] [place] [address] Dr. Kasia Nath EPEC Not detected Normal NOT DETECTED [facility] Comment on above: Performed By: #### P OCGLUC #### [facility] [address] [address] [address] Kasia Nath ETEC Not detected Normal NOT DETECTED [facility] Comment on above: Performed By: #### P OCGLUC #### [facility] [address] [address] [address] Kasia Nath G. Lamblia Not detected Normal NOT DETECTED [facility] Comment on above: Performed By: #### P OCGLUC #### [facility] [address] [address] [address] Kasia KHAN CONTROLS PASSED Normal [facility] Comment on above: Performed By: #### P OCGLUC #### [facility] [address] [address] [address] Kasia THOMPSON JUNO HEADER GI PANEL BACTERIA Normal [facility] Comment on above: Performed By: #### P OCGLUC #### [facility] [address] [place] [address] Dr. Kasia GE ECOLI GI PANEL DIARRHEAGEN IC E.COLI / SHIGELLA Normal [facility] Comment on above: Performed By: #### P OCGLUC #### [facility] [address] [place] [address] Dr. Kasia GE INFO SEE BELOW Normal [facility] Comment on above: Result Comment: EAEC - Enteroaggregative E. Coli EPEC- Enteropathogenic E. Coli ETEC- Enterotoxigenic E. Coli lt/st STEC- Shigella-like toxin-producing E. Coli stx1/stx2 EIEC- Shigella/Enteroinvasive E. Coli Performed By: #### P OCGLUC #### [facility] [address] [place] [address] Dr. Kasia GE PARASITES GI PANEL PARASITES Normal [facility] Comment on above: Performed By: #### P OCGLUC #### [facility] [address] [address] [address] Kasia GE VIRUS GI PANEL VIRUSES Normal [facility] Comment on above: Performed By: #### P OCGLUC #### [facility] [address] [address] [address] Kasia Nath Norovirus GI/GII Not detected Normal NOT DETECTED [facility] Comment on above: Performed By: #### P OCGLUC #### [facility] [address] [place] [address] Dr. Kasia Garland. Shigelloides Not detected Normal NOT DETECTED [facility] Comment on above: Performed By: #### P OCGLUC #### [facility] [address] [place] [address] Dr. Kasia Nath Rotavirus A Not detected Normal NOT DETECTED [facility] Comment on above: Performed By: #### P OCGLUC #### [facility] [address] [place] [address] Dr. Kasia Nath Salmonella Not detected Normal NOT DETECTED [facility] Comment on above: Performed By: #### P OCGLUC #### [facility] [address] [place] [address] Dr. Kasia Nath Sapovirus Not detected Normal NOT DETECTED [facility] Comment on above: Performed By: #### P OCGLUC #### [facility] [address] [place] [address] Dr. Kasia Nath STEC Not detected Normal NOT DETECTED [facility] Comment on above: Performed By: #### P OCGLUC #### [facility] [address] [place] [address] Dr. Kasia Nath Vibrio Not detected Normal NOT DETECTED [facility] Comment on above: Performed By: #### P OCGLUC #### [facility] [address] [place] [address] Dr. Kasia Nath Vibrio Cholera Not detected Normal NOT DETECTED [facility] Comment on above: Performed By: #### P OCGLUC #### [facility] [address] [place] [address] Dr. Kasia Nath Y. Enterocolitica Not detected Normal NOT DETECTED [facility] Comment on above: Performed By: #### P OCGLUC #### [facility] [address] [place] [address] Dr. Kasia Nath CBC AUTO DIFFon 02-14-2023 BASO # 0.0 103/ul Normal 0.0-0.1 [facility] Comment on above: Performed By: #### P OCGLUC #### [facility] [address] [address] [address] Kasia Nath Basophils/100 WBC (Bld) 0.5 % Normal 0.2-2.0 [facility] Comment on above: Performed By: #### P OCGLUC #### [facility] [address] [address] [address] Kasia Nath EO # 0.2 103/ul Normal 0.0-0.7 [facility] Comment on above: Performed By: #### P OCGLUC #### [facility] [address] [place] [address] Dr. Kasia Nath Eosinophils/100 WBC (Bld) 2.7 % Normal 0.9-7.0 [facility] Comment on above: Performed By: #### P OCGLUC #### [facility] [address] [address] [address] Kasia Nath Erythrocyte distribution width (RBC) [Ratio] 13.0 % Normal 11.0-15.0 [facility] Comment on above: Performed By: #### P OCGLUC #### [facility] [address] [place] [address] Dr. Kasia Nath Hematocrit (Bld) [Volume fraction] 35.9 % Critically low 36.0-48.0 [facility] Comment on above: Performed By: #### P OCGLUC #### [facility] [address] [place] [address] Dr. Kasia Nath Hemoglobin (Bld) [Mass/Vol] 12.0 g/dL Normal 12.0-16.0 [facility] Comment on above: Performed By: #### P OCGLUC #### [facility] [address] [place] [address] Dr. Kasia Nath IG # 0.02 10e3/ul Normal 0.00-0.03 [facility] Comment on above: Performed By: #### P OCGLUC #### [facility] [address] [address] [address] Kasia Nath IG % 0.3 % Normal 0.0-0.5 [facility] Comment on above: Performed By: #### P OCGLUC #### [facility] [address] [address] [address] Kasia Nath LYMPH # 1.8 103/ul Normal 1.2-3.8 [facility] Comment on above: Performed By: #### P OCGLUC #### [facility] [address] [place] [address] Dr. Kasia Nath Lymphocytes/100 WBC (Bld) 22.8 % Normal 20.5-60.0 [facility] Comment on above: Performed By: #### P OCGLUC #### [facility] [address] [place] [address] Dr. Kasia Nath MANUAL DIFF REQ NO Normal [facility] Comment on above: Performed By: #### P OCGLUC #### [facility] [address] [place] [address] Dr. Kasia Nath MCH (RBC) [Entitic mass] 29.4 pg Normal 26.7-34.0 [facility] Comment on above: Performed By: #### P OCGLUC #### [facility] [address] [place] [address] Dr. Kasia Nath MCHC (RBC) [Mass/Vol] 33.4 g/dL Normal 29.9-35.2 [facility] Comment on above: Performed By: #### P OCGLUC #### [facility] [address] [place] [address] Dr. Kasia Nath MCV (RBC) [Entitic vol] 88.0 fL Normal 81.0-99.0 [facility] Comment on above: Performed By: #### P OCGLUC #### [facility] [address] [place] [address] Dr. Kasia Nath MONO # 0.7 103/ul Normal 0.3-0.8 [facility] Comment on above: Performed By: #### P OCGLUC #### [facility] [address] [address] [address] Kasia Nath Monocytes/100 WBC (Bld) 9.3 % Normal 1.7-12.0 [facility] Comment on above: Performed By: #### P OCGLUC #### [facility] [address] [address] [address] Kasia Nath NEUT # 5.1 103/ul Normal 1.4-6.5 [facility] Comment on above: Performed By: #### P OCGLUC #### [facility] [address] [address] [address] Kasia Nath Neutrophils/100 WBC (Bld) 64.4 % Normal 43.0-75.0 [facility] Comment on above: Performed By: #### P OCGLUC #### [facility] [address] [place] [address] Dr. Kasia Nath Platelet mean volume (Bld) [Entitic vol] 11.7 fL Normal 9.5-13.5 [facility] Comment on above: Performed By: #### P OCGLUC #### [facility] [address] [address] [address] Kasia Nath PLT 175 103/ul Normal 150-450 [facility] Comment on above: Performed By: #### P OCGLUC #### [facility] [address] [place] [address] Dr. Kasia Nath RBC 4.08 106/ul Critically low 4.20-5.[address] [facility] Comment on above: Performed By: #### P OCGLUC #### [facility] [address] [address] [address] Kasia Nath WBC 7.9 103/ul Normal 4.0-11.0 [facility] Comment on above: Performed By: #### P OCGLUC #### [facility] [address] [address] [address] Kasia Nath LIPASEon 02-14-2023 Lipase [Catalytic activity/Vol] 51.0 U/L Critically low 73.0-393.0 [facility] Comment on above: Performed By: #### L IPA, CMP ####[facility] [address] [address]Dr. Kasia Nath PROF 14(COMP METB)on 023 Albumin [Mass/Vol] 2.8 g/dL Critically low 3.4-5.0 [facility] Comment on above: Performed By: #### L IPA, CMP ####[facility] [address] [address]Dr. Kasia Nath Albumin/Globulin [Mass ratio] 0.7 {ratio} Normal [facility] Comment on above: Performed By: #### L IPA, CMP ####[facility] [address] [address]Dr. Kasia Nath ALP [Catalytic activity/Vol] 90 U/L Normal 46-116 [facility] Comment on above: Performed By: #### L IPA, CMP ####[facility] [address] [address]Dr. Kasia Nath ALT [Catalytic activity/Vol] 15 U/L Normal 14-59 [facility] Comment on above: Performed By: #### L IPA, CMP ####[facility] [address] [address]Dr. Kasia Nath Anion gap [Moles/Vol] 15.6 mmol/L Normal [facility] Comment on above: Performed By: #### L IPA, CMP ####[facility] [address] [address]Dr. Kasia Nath AST [Catalytic activity/Vol] 9 U/L Critically low 15-37 [facility] Comment on above: Performed By: #### L IPA, CMP ####[facility] [address] [address]Dr. Kasia Nath Bilirubin [Mass/Vol] 0.4 mg/dL Normal 0.2-1.0 [facility] Comment on above: Performed By: #### L IPA, CMP ####[facility] [address] [address]Dr. Kasia Nath Calcium [Mass/Vol] 9.1 mg/dL Normal 8.5-10.1 [facility] Comment on above: Performed By: #### L IPA, CMP ####[facility] [address] [address]Dr. Kasia Nath Chloride [Moles/Vol] 104 mmol/L Normal 98-107 [facility] Comment on above: Performed By: #### L IPA, CMP ####[facility] [address] [place], [place] [address]Dr. Kasia Nath CO2 [Moles/Vol] 17.0 mmol/L Critically low 21.0-32.0 [facility] Comment on above: Performed By: #### L IPA, CMP ####[facility] [address] [place], [place] [address]Dr. Kasia Nath Creatinine [Mass/Vol] 1.78 mg/dL Critically high 0.55-1.02 [facility] Comment on above: Performed By: #### L IPA, CMP ####[facility] [address] [place], [place] [address]Dr. Kasia Nath EGFR-AF BAHAMIAN 34 mL/min/1.73m2 Critically low >=60 [facility] Comment on above: Performed By: #### L IPA, CMP ####[facility] [address] [place], [place] [address]Dr. Kasia Nath EGFR-NON AF BAHAMIAN 28 mL/min/1.73m2 Critically low >=60 [facility] Comment on above: Performed By: #### L IPA, CMP ####[facility] [address] [place], [place] [address]Dr. Kasia Nath Globulin (S) [Mass/Vol] 4.3 g/dL Normal [facility] Comment on above: Performed By: #### L IPA, CMP ####[facility] [address] [place], [place] [address]Dr. Kasia Nath Glucose [Mass/Vol] 248 mg/dL Critically high 74-106 [facility] Comment on above: Performed By: #### L IPA, CMP ####[facility] [address] [place], [place] [address]Dr. Kasia Nath Potassium [Moles/Vol] 4.6 mmol/L Normal 3.5-5.1 [facility] Comment on above: Performed By: #### L IPA, CMP ####[facility] [address] [place], [place] [address]Dr. Kasia Nath Protein [Mass/Vol] 7.1 g/dL Normal 6.4-8.2 [facility] Comment on above: Performed By: #### L IPA, CMP ####[facility] [address] [place], [place] [address]Dr. Kasia Nath Sodium [Moles/Vol] 132 mmol/L Critically low 136-145 [facility] Comment on above: Performed By: #### L IPA, CMP ####[facility] [address] [place], [place] [address]Dr. Kasia Nath Urea nitrogen [Mass/Vol] 78.0 mg/dL Critically high 7.0-18.0 [facility] Comment on above: Performed By: #### L IPA, CMP ####[facility] [address] [place], [place] [address]Dr. Kasia Nath Urea nitrogen/Creatinine [Mass ratio] 43.8 mg/mg Normal [facility] Comment on above: Performed By: #### L IPA, CMP ####[facility] [address] [place], [place] [address]Dr. Kasia Nath CBC AUTO DIFFon 02-13-2023 BASO # 0.0 103/ul Normal 0.0-0.1 [facility] Comment on above: Performed By: #### C BC ####[facility] [address] [place], [place] [address]Dr. Kasia Nath Basophils/100 WBC (Bld) 0.5 % Normal 0.2-2.0 [facility] Comment on above: Performed By: #### C BC ####[facility] [address] [place], [place] [address]Dr. Kasia Nath EO # 0.1 103/ul Normal 0.0-0.7 [facility] Comment on above: Performed By: #### C BC ####[facility] [address] [address]Dr. Kasia Nath Eosinophils/100 WBC (Bld) 1.0 % Normal 0.9-7.0 [facility] Comment on above: Performed By: #### C BC ####[facility] [address] [place], [place] [address]Dr. Kasia Nath Erythrocyte distribution width (RBC) [Ratio] 12.8 % Normal 11.0-15.0 [facility] Comment on above: Performed By: #### C BC ####[facility] [address] [place], [place] [address]Dr. Kasia Nath Hematocrit (Bld) [Volume fraction] 38.5 % Normal 36.0-48.0 [facility] Comment on above: Performed By: #### C BC ####[facility] [address] [place], [place] [address]Dr. Kasia Nath Hemoglobin (Bld) [Mass/Vol] 13.0 g/dL Normal 12.0-16.0 [facility] Comment on above: Performed By: #### C BC ####[facility] [address] [place], [place] [address]Dr. Kasia Nath IG # 0.02 10e3/ul Normal 0.00-0.03 [facility] Comment on above: Performed By: #### C BC ####[facility] [address] [place], [place] [address]Dr. Kasia Nath IG % 0.2 % Normal 0.0-0.5 [facility] Comment on above: Performed By: #### C BC ####[facility] [address] [place], [place] [address]Dr. Kasia Nath LYMPH # 0.9 103/ul Critically low 1.2-3.8 [facility] Comment on above: Performed By: #### C BC ####[facility] [address] [place], [place] [address]Dr. Kasia Nath Lymphocytes/100 WBC (Bld) 10.0 % Critically low 20.5-60.0 [facility] Comment on above: Performed By: #### C BC ####[facility] [address] [id number]. Kasia Nath MANUAL DIFF REQ NO Normal [facility] Comment on above: Performed By: #### C BC ####[facility] [address] [address]Dr. Kasia Nath MCH (RBC) [Entitic mass] 29.5 pg Normal 26.7-34.0 [facility] Comment on above: Performed By: #### C BC ####[facility] [address] [address]Dr. Kasia Nath MCHC (RBC) [Mass/Vol] 33.8 g/dL Normal 29.9-35.2 [facility] Comment on above: Performed By: #### C BC ####[facility] [address] [address]Dr. Kasia Nath MCV (RBC) [Entitic vol] 87.5 fL Normal 81.0-99.0 [facility] Comment on above: Performed By: #### C BC ####[facility] [address] [place] [address]Dr. Kasia Nath MONO # 0.5 103/ul Normal 0.3-0.8 [facility] Comment on above: Performed By: #### C BC ####[facility] [address] [place] [address]Dr. Kasia Portillo Monocytes/100 WBC (Bld) 5.7 % Normal 1.7-12.0 [facility] Comment on above: Performed By: #### C BC ####[facility] [address] [address]Dr. Kasia Nath NEUT # 7.2 103/ul Critically high 1.4-6.[address] [facility] Comment on above: Performed By: #### C BC ####[facility] [address] [address]Dr. Kasia Portillo Neutrophils/100 WBC (Bld) 82.6 % Critically high 43.0-75.0 [facility] Comment on above: Performed By: #### C BC ####[facility] [address] [place], [place] [address]Ma. Kasia Nath Platelet mean volume (Bld) [Entitic vol] 11.8 fL Normal 9.5-13.5 [facility] Comment on above: Performed By: #### C BC ####[facility] [address] [place], [place] [address]Zd. Kasia Nath PLT 187 103/ul Normal 150-450 [facility] Comment on above: Performed By: #### C BC ####[facility] [address] [place], [place] [address]Bb. Kasia Nath RBC 4.40 106/ul Normal 4.20-5.40 [facility] Comment on above: Performed By: #### C BC ####[facility] [address] [place], [place] [address]Vg. Kasia Nath WBC 8.8 103/ul Normal 4.0-11.0 [facility] Comment on above: Performed By: #### C BC ####[facility] [address] [place], [place] [address]Kp. [address] N[address] CT ABD/PELVIS WO CONon 02-13 [...] JACOB KAZ Date: 2023-02-13 14:40 Normal [facility] CULTURE URINEon 02-13-2023 CULTURE URINE Culture Observations : LIGHT GROWTH OF MIXED GENITAL VON. NO POTENTIAL PATHOGENS SEEN. Normal [facility] Comment on above: Performed By: #### U RCX ####[facility] [address] [place], [place] [address]JmDr. Kasia Nath Covid-19 PCR ([facility])on SARS-CoV-2 (COVID-19) RNA FERN+probe Ql (Unsp spec) Not detected Normal NOT DETECTED [facility] Comment on above: Result Comment: When [...] for this test is supported by the [employer]'s declaration that [...] used). Performed By: #### P OCGLUC #### [facility] [address] [place], [place] [address] Dr. Kasia Nath GI PANEL (PCR)on 02-13-2023 Adenovirus F 40/41 Not detected Normal NOT DETECTED [facility] Comment on above: Performed By: #### C BC #### [facility] [address] [place] [address] Dr. Kaisa Nath Astrovirus Not detected Normal NOT DETECTED [facility] Comment on above: Performed By: #### C BC #### [facility] [address] [place] [address] Dr. Kasia Del Real. Diff toxin A/B Not detected Normal NOT DETECTED [facility] Comment on above: Performed By: #### C BC #### [facility] [address] [place] [address] Dr. Kasia Nath Campylobacter Not detected Normal NOT DETECTED [facility] Comment on above: Performed By: #### C BC #### [facility] [address] [place] [address] Dr. Kasia Nath Cryptosporidium Not detected Normal NOT DETECTED [facility] Comment on above: Performed By: #### C BC #### [facility] [address] [place] [address] Dr. Kasia Nath Cyclos. Cayetanensis Not detected Normal NOT DETECTED [facility] Comment on above: Performed By: #### C BC #### [facility] [address] [place] [address] Dr. Kasia Nath E. Coli O157 Not Applicable Normal Not Applicable [facility] Comment on above: Performed By: #### C BC #### [facility] [address] [place] [address] Dr. Kasia Nath E. histolytica Not detected Normal NOT DETECTED [facility] Comment on above: Performed By: #### C BC #### [facility] [address] [place] [address] Dr. Kasia Nath EAEC Not detected Normal NOT DETECTED [facility] Comment on above: Performed By: #### C BC #### [facility] [address] [place] [address] Dr. Kasia Nath EIEC Not detected Normal NOT DETECTED [facility] Comment on above: Performed By: #### C BC #### [facility] [address] [place] [address] Dr. Kasia Nath EPEC Not detected Normal NOT DETECTED [facility] Comment on above: Performed By: #### C BC #### [facility] [address] [address] [address] Kasia Nath ETEC Not detected Normal NOT DETECTED [facility] Comment on above: Performed By: #### C BC #### [facility] [address] [address] [address] Kasia Nath G. Lamblia Not detected Normal NOT DETECTED [facility] Comment on above: Performed By: #### C BC #### [facility] [address] [address] [address] Kasia KHAN CONTROLS PASSED Normal [facility] Comment on above: Performed By: #### C BC #### [facility] [address] [address] [address] Kasia FRAIRE HEADER GI PANEL BACTERIA Normal [facility] Comment on above: Performed By: #### C BC #### [facility] [address] [address] [address] Kasia GE ECOLI GI PANEL DIARRHEAGEN IC E.COLI / SHIGELLA Normal [facility] Comment on above: Performed By: #### C BC #### [facility] [address] [address] [address] Kasia GE INFO SEE BELOW Normal [facility] Comment on above: Result Comment: EAEC - Enteroaggregative E. Coli EPEC- Enteropathogenic E. Coli ETEC- Enterotoxigenic E. Coli lt/st STEC- Shigella-like toxin-producing E. Coli stx1/stx2 EIEC- Shigella/Enteroinvasive E. Coli Performed By: #### C BC #### [facility] [address] [address] [address] Kasia GE PARASITES GI PANEL PARASITES Normal [facility] Comment on above: Performed By: #### C BC #### [facility] [address] [address] [address] Kasia GE VIRUS GI PANEL VIRUSES Normal [facility] Comment on above: Performed By: #### C BC #### [facility] [address] [place] [address] Dr. Kasia Nath Norovirus GI/GII Not detected Normal NOT DETECTED [facility] Comment on above: Performed By: #### C BC #### [facility] [address] [place] [address] Dr. Kasia Nath P. Shigelloides Not detected Normal NOT DETECTED [facility] Comment on above: Performed By: #### C BC #### [facility] [address] [place] [address] Dr. Kasia Nath Rotavirus A Not detected Normal NOT DETECTED [facility] Comment on above: Performed By: #### C BC #### [facility] [address] [place] [address] Dr. Kasia Nath Salmonella Not detected Normal NOT DETECTED [facility] Comment on above: Performed By: #### C BC #### [facility] [address] [place] [address] Dr. Kasia Nath Sapovirus Not detected Normal NOT DETECTED [facility] Comment on above: Performed By: #### C BC #### [facility] [address] [place] [address] Dr. Kasia Nath STEC Not detected Normal NOT DETECTED [facility] Comment on above: Performed By: #### C BC #### [facility] [address] [place] [address] Dr. Kasia Nath Vibrio Not detected Normal NOT DETECTED [facility] Comment on above: Performed By: #### C BC #### [facility] [address] [place] [address] Dr. Kasia Ntah Vibrio Cholera Not detected Normal NOT DETECTED [facility] Comment on above: Performed By: #### C BC #### [facility] [address] [place] [address] Dr. Kasia Nath Y. Enterocolitica Not detected Normal NOT DETECTED [facility] Comment on above: Performed By: #### C BC #### [facility] [address] [place] [address] Dr. Kasia Nath LACTATE/LACTIC ACIDon 2022 Lactate [Moles/Vol] 1.7 mmol/L Normal 0.4-2.0 [facility] Comment on above: Performed By: #### L ACT ####[facility] [address] [address]Dr. Kasia Nath LIPASEon 02-13-2023 Lipase [Catalytic activity/Vol] 82.0 U/L Normal 73.0-393.0 [facility] Comment on above: Performed By: #### L IPA, CMP #### [facility] [address] [address] [address] Kasia Nath POINT OF CARE GLUCOSEon Glucose [Mass/Vol] 229 mg/dL Critically high 74-106 [facility] Comment on above: Performed By: #### P OCGLUC #### [facility] [address] [place] [address] Dr. Kasia Nath Glucose [Mass/Vol] 474 mg/dL Critically high 74-106 [facility] Comment on above: Performed By: #### P OCGLUC #### [facility] [address] [place] [address] Dr. Kasia Nath PROF 14(COMP METB)on 023 Albumin [Mass/Vol] 3.4 g/dL Normal 3.4-5.0 [facility] Comment on above: Performed By: #### L IPA, CMP #### [facility] [address] [place] [address] Dr. Kasia Nath Albumin/Globulin [Mass ratio] 0.7 {ratio} Normal [facility] Comment on above: Performed By: #### L IPA, CMP #### [facility] [address] [place] [address] Dr. Kasia Nath ALP [Catalytic activity/Vol] 106 U/L Normal 46-116 [facility] Comment on above: Performed By: #### L IPA, CMP #### [facility] [address] [place] [address] Dr. Kasia Nath ALT [Catalytic activity/Vol] 21 U/L Normal 14-59 [facility] Comment on above: Performed By: #### L IPA, CMP #### [facility] [address] [address] [address] Kasia Nath Anion gap [Moles/Vol] 17.7 mmol/L Normal [facility] Comment on above: Performed By: #### L IPA, CMP #### [facility] [address] [address] [address] Kasia Nath AST [Catalytic activity/Vol] 11 U/L Critically low 15-37 [facility] Comment on above: Performed By: #### L IPA, CMP #### [facility] [address] [address] [address] Kasia Nath Bilirubin [Mass/Vol] 0.5 mg/dL Normal 0.2-1.0 [facility] Comment on above: Performed By: #### L IPA, CMP #### [facility] [address] [address] [address] Kasia Nath Calcium [Mass/Vol] 9.6 mg/dL Normal 8.5-10.1 [facility] Comment on above: Performed By: #### L IPA, CMP #### [facility] [address] [address] [address] Kasia Nath Chloride [Moles/Vol] 99 mmol/L Normal 98-107 [facility] Comment on above: Performed By: #### L IPA, CMP #### [facility] [address] [address] [address] Kasia Nath CO2 [Moles/Vol] 20.6 mmol/L Critically low 21.0-32.0 [facility] Comment on above: Performed By: #### L IPA, CMP #### [facility] [address] [address] [address] Kasia Nath Creatinine [Mass/Vol] 2.14 mg/dL Critically high 0.55-1.02 [facility] Comment on above: Performed By: #### L IPA, CMP #### [facility] [address] [address] [address] Kasia Nath EGFR-AF BAHAMIAN 27 mL/min/1.73m2 Critically low >=60 [facility] Comment on above: Performed By: #### L IPA, CMP #### [facility] [address] [address] [address] Kasia Nath EGFR-NON AF BAHAMIAN 22 mL/min/1.73m2 Critically low >=60 [facility] Comment on above: Performed By: #### L IPA, CMP #### [facility] [address] [address] [address] Kasia Nath Globulin (S) [Mass/Vol] 4.8 g/dL Normal [facility] Comment on above: Performed By: #### L IPA, CMP #### [facility] [address] [address] [address] Kasia Nath Glucose [Mass/Vol] 498 mg/dL Critically high 74-106 [facility] Comment on above: Performed By: #### L IPA, CMP #### [facility] [address] [place] [address] Dr. Kasia Nath Potassium [Moles/Vol] 5.3 mmol/L Critically high 3.5-5.1 [facility] Comment on above: Performed By: #### L IPA, CMP #### [facility] [address] [address] [address] Kasia Nath Protein [Mass/Vol] 8.2 g/dL Normal 6.4-8.2 [facility] Comment on above: Performed By: #### L IPA, CMP #### [facility] [address] [address] [address] Kasia Nath Sodium [Moles/Vol] 132 mmol/L Critically low 136-145 [facility] Comment on above: Performed By: #### L IPA, CMP #### [facility] [address] [address] [address] Kasia Nath Urea nitrogen [Mass/Vol] 86.0 mg/dL Critically high 7.0-18.0 [facility] Comment on above: Performed By: #### L IPA, CMP #### [facility] [address] [address] [address] Kasia Nath Urea nitrogen/Creatinine [Mass ratio] 40.2 mg/mg Normal [facility] Comment on above: Performed By: #### L IPA, CMP #### [facility] [address] [address] [address] Kasia Nath UA RANDOM W/MICROSCOPICon BACTERIA TRACE Abnormal NONE SEEN [facility] Comment on above: Performed By: #### U AMIC ####[facility] [address] [address]Dr. Kasia Nath Bilirubin Ql (U) Negative Normal NEGATIVE [facility] Comment on above: Performed By: #### U AMIC ####[facility] [address] [address]Dr. Kasia Nath CAST SEEN Abnormal NONE SEEN [facility] Comment on above: Performed By: #### U AMIC ####[facility] [address] [address]Dr. Kasia Nath Clarity (U) CLEAR Normal CLEAR [facility] Comment on above: Performed By: #### U AMIC ####[facility] [address] [address]Dr. Kasia Nath Color (U) LT. YELLOW Normal YELLOW [facility] Comment on above: Performed By: #### U AMIC ####[facility] [address] [address]Dr. Kasia Nath Crystals LM Nom (Urine sed) NONE SEEN Normal NONE SEEN [facility] Comment on above: Performed By: #### U AMIC ####[facility] [address] [address]Dr. Kasia Nath Epithelial cells LM Ql (Urine sed) FEW Abnormal NONE SEEN /RARE [facility] Comment on above: Performed By: #### U AMIC ####[facility] [address] [address]Dr. Kasia Nath Glucose Ql (U) >1000 Abnormal NEGATIVE [facility] Comment on above: Performed By: #### U AMIC ####[facility] [address] [address]Dr. Kasia Nath Hemoglobin Ql (U) Negative Normal NEGATIVE [facility] Comment on above: Performed By: #### U AMIC ####[facility] [address] [address]Dr. Kasia Nath HYALINE CAST RARE Normal [facility] Comment on above: Performed By: #### U AMIC ####[facility] [address] [address]Dr. Fartuncristy Nath Ketones Ql (U) Negative Normal NEGATIVE [facility] Comment on above: Performed By: #### U AMIC ####[facility] [address] [address]Dr. Kasia Nath LEUKOCYTES Negative Normal NEGATIVE [facility] Comment on above: Performed By: #### U AMIC ####[facility] [address] [place], [place] [address]Dr. Kasia Portillo MUCOUS NONE SEEN Normal NONE SEEN [facility] Comment on above: Performed By: #### U AMIC ####[facility] [address] [place], [place] [address]Dr. Kasia Nath Nitrite Ql (U) Negative Normal NEGATIVE [facility] Comment on above: Performed By: #### U AMIC ####[facility] [address] [place], [place] [address]Dr. Kasia Nath pH (U) 5.5 [pH] Normal 5-9 [facility] Comment on above: Performed By: #### U AMIC ####[facility] [address] [place], [place] [address]Dr. Kasia Nath RBC 0-2 Normal 0-2 [facility] Comment on above: Performed By: #### U AMIC ####[facility] [address] [address]Dr. Kasia Nath SPEC GRAVITY 1.015 Normal 1.005-<=1.0 25 [facility] Comment on above: Performed By: #### U AMIC ####[facility] [address] [address]Dr. Kasia Nath UA PROTEIN TRACE Normal NEGATIVE/ TRACE [facility] Comment on above: Performed By: #### U AMIC ####[facility] [address] [address]Dr. Kasia Nath Urobilinogen Qn (U) 0.2 {Meka'U}/dL Normal 0.2 - 1. 0 [facility] Comment on above: Performed By: #### U AMIC ####[facility] [address] [address]Dr. Kasia Nath WBC 0-2 Abnormal NONE SEEN [facility] Comment on above: Performed By: #### U AMIC ####[facility] [address] [address]Dr. Kasia Nath BNPon 01-16-2023 Natriuretic peptide B (Bld) [Mass/Vol] 1675.0 pg/mL Normal <=1,800.0 [facility] Comment on above: Performed By: #### B LEGAL INTERN, CMP ####[facility] [address] [place], [place] [address]Dr. Kasia Nath PROF 14(COMP METB)on 023 Albumin [Mass/Vol] 3.4 g/dL Normal 3.4-5.0 [facility] Comment on above: Performed By: #### B LEGAL INTERN, CMP ####[facility] [address] [place], [place] [address]Dr. Kasia Nath Albumin/Globulin [Mass ratio] 0.8 {ratio} Normal [facility] Comment on above: Performed By: #### B LEGAL INTERN, CMP ####[facility] [address] [place], [place] [address]Dr. Kasia Nath ALP [Catalytic activity/Vol] 99 U/L Normal 46-116 [facility] Comment on above: Performed By: #### B LEGAL INTERN, CMP ####[facility] [address] [place], [place] [address]Dr. Kasia Nath ALT [Catalytic activity/Vol] 18 U/L Normal 14-59 [facility] Comment on above: Performed By: #### B LEGAL INTERN, CMP ####[facility] [address] [place], [place] [address]Dr. Kasia Nath Anion gap [Moles/Vol] 10.6 mmol/L Normal [facility] Comment on above: Performed By: #### B LEGAL INTERN, CMP ####[facility] [address] [id number]. Kasia Nath AST [Catalytic activity/Vol] 15 U/L Normal 15-37 [facility] Comment on above: Performed By: #### B LEGAL INTERN, CMP ####[facility] [address] [address]Dr. Kasia Nath Bilirubin [Mass/Vol] 0.5 mg/dL Normal 0.2-1.0 [facility] Comment on above: Performed By: #### B LEGAL INTERN, CMP ####[facility] [address] [place], [place] [address]Dr. Kasia Portillo Calcium [Mass/Vol] 9.1 mg/dL Normal 8.5-10.1 [facility] Comment on above: Performed By: #### B LEGAL INTERN, CMP ####[facility] [address] [place], [place] [address]Dr. Kasia Nath Chloride [Moles/Vol] 98 mmol/L Normal 98-107 [facility] Comment on above: Performed By: #### B LEGAL INTERN, CMP ####[facility] [address] [place], [place] [address]Dr. Kasia Portillo CO2 [Moles/Vol] 30.4 mmol/L Normal 21.0-32.0 [facility] Comment on above: Performed By: #### B LEGAL INTERN, CMP ####[facility] [address] [place], [place] [address]Dr. Kasia Portillo Creatinine [Mass/Vol] 1.44 mg/dL Critically high 0.55-1.02 [facility] Comment on above: Performed By: #### B LEGAL INTERN, CMP ####[facility] [address] [place], [place] [address]Dr. Fartuncristy Portillo EGFR-AF BAHAMIAN 43 mL/min/1.73m2 Critically low >=60 [facility] Comment on above: Performed By: #### B LEGAL INTERN, CMP ####[facility] [address] [place], [place] [address]Dr. Kasia Portillo EGFR-NON AF BAHAMIAN 35 mL/min/1.73m2 Critically low >=60 [facility] Comment on above: Performed By: #### B LEGAL INTERN, CMP ####[facility] [address] [place], [place] [address]Dr. Kasia Nath Globulin (S) [Mass/Vol] 4.4 g/dL Normal [facility] Comment on above: Performed By: #### B LEGAL INTERN, CMP ####[facility] [address] [place], [place] [address]Dr. Kasia Nath Glucose [Mass/Vol] 401 mg/dL Critically high 74-106 [facility] Comment on above: Performed By: #### B LEGAL INTERN, CMP ####[facility] [address] [place], [place] [address]Dr. Kasia Nath Potassium [Moles/Vol] 5.0 mmol/L Normal 3.5-5.1 [facility] Comment on above: Performed By: #### B LEGAL INTERN, CMP ####[facility] [address] [place], [place] [address]Dr. Kasia Nath Protein [Mass/Vol] 7.8 g/dL Normal 6.4-8.2 [facility] Comment on above: Performed By: #### B LEGAL INTERN, CMP ####[facility] [address] [place], [place] [address]Dr. Kasia Nath Sodium [Moles/Vol] 134 mmol/L Critically low 136-145 [facility] Comment on above: Performed By: #### B LEGAL INTERN, CMP ####[facility] [address] [place], [place] [address]Dr. Kasia Nath Urea nitrogen [Mass/Vol] 46.0 mg/dL Critically high 7.0-18.0 [facility] Comment on above: Performed By: #### B LEGAL INTERN, CMP ####[facility] [address] [place], [place] [address]Dr. Kasia Nath Urea nitrogen/Creatinine [Mass ratio] 31.9 mg/mg Normal [facility] Comment on above: Performed By: #### B LEGAL INTERN, CMP ####[facility] [address] [id number]. Kasia Nath BNPon 01-05-2023 Natriuretic peptide B (Bld) [Mass/Vol] 1389.0 pg/mL Normal <=1,800.0 [facility] Comment on above: Performed By: #### B LEGAL INTERN, CMADM, CMP ####[facility] [address] [address]Dr. Kasia Nath CARDIAC EMERY ADMITon 023 CK [Catalytic activity/Vol] 138 U/L Normal 26-192 [facility] Comment on above: Performed By: #### B LEGAL INTERN, CMADM, CMP ####[facility] [address] [address]Dr. Kasia Nath CK.MB [Mass/Vol] 2.22 ng/mL Normal <=3.60 [facility] Comment on above: Performed By: #### B LEGAL INTERN, CMADM, CMP ####[facility] [address] [address]DrDoreen Nath HSTROP 15.9 pg/mL Normal 4.0-51.3 [facility] Comment on above: Result Comment: CUT- OFF POINTS HAVE BEEN ESTABLISHED BASED ON THE FOURTH UNIVERSAL DEFINITIONS OF MYOCARDIAL INFARCTION. THE UPPER REFERENCE LIMIT (URL) OF TROPONIN, DEFINED THE 99TH PERCENTILE OF cTnI DISTRIBUTION IN A REFERENCE POPULATION, HAS BEEN CONFIRMED THE DECISION THRESHOLD FOR LA DIAGNOSIS. Performed By: #### B LEGAL INTERN, CMADM, CMP ####[facility] [address] [address]DrDoreen Nath GRETTA 178 ng/mL Critically high 9-[address] [facility] Comment on above: Performed By: #### B LEGAL INTERN, CMADM, CMP ####[facility] [address] [address]Dr. Kasia Nath CBC AUTO DIFFon 01-05-2023 BASO # 0.1 103/ul Normal 0.0-0.1 [facility] Comment on above: Performed By: #### C BC #### [facility] [address] [address] [address] Kasia Nath Basophils/100 WBC (Bld) 0.7 % Normal 0.2-2.0 [facility] Comment on above: Performed By: #### C BC #### [facility] [address] [place] [address] Dr. Kasia Nath EO # 0.3 103/ul Normal 0.0-0.7 [facility] Comment on above: Performed By: #### C BC #### [facility] [address] [place] [address] Dr. Kasia Nath Eosinophils/100 WBC (Bld) 2.9 % Normal 0.9-7.0 [facility] Comment on above: Performed By: #### C BC #### [facility] [address] [place] [address] Dr. Kasia Nath Erythrocyte distribution width (RBC) [Ratio] 13.5 % Normal 11.0-15.0 [facility] Comment on above: Performed By: #### C BC #### [facility] [address] [place] [address] Dr. Kasia Nath Hematocrit (Bld) [Volume fraction] 39.8 % Normal 36.0-48.0 [facility] Comment on above: Performed By: #### C BC #### [facility] [address] [place] [address] Dr. Kasia Nath Hemoglobin (Bld) [Mass/Vol] 13.5 g/dL Normal 12.0-16.0 [facility] Comment on above: Performed By: #### C BC #### [facility] [address] [place] [address] Dr. Kasia Nath IG # 0.02 10e3/ul Normal 0.00-0.03 [facility] Comment on above: Performed By: #### C BC #### [facility] [address] [place] [address] Dr. Kasia Nath IG % 0.2 % Normal 0.0-0.5 [facility] Comment on above: Performed By: #### C BC #### [facility] [address] [place] [address] Dr. Kasia Nath LYMPH # 1.9 103/ul Normal 1.2-3.8 [facility] Comment on above: Performed By: #### C BC #### [facility] [address] [place] [address] Dr. Kasia Nath Lymphocytes/100 WBC (Bld) 22.0 % Normal 20.5-60.0 [facility] Comment on above: Performed By: #### C BC #### [facility] [address] [place] [address] Dr. Kasia Nath MANUAL DIFF REQ NO Normal [facility] Comment on above: Performed By: #### C BC #### [facility] [address] [place] [address] Dr. Kasia Nath MCH (RBC) [Entitic mass] 29.8 pg Normal 26.7-34.0 [facility] Comment on above: Performed By: #### C BC #### [facility] [address] [place] [address] Dr. Kasia Nath MCHC (RBC) [Mass/Vol] 33.9 g/dL Normal 29.9-35.2 [facility] Comment on above: Performed By: #### C BC #### [facility] [address] [place] [address] Dr. Kasia Nath MCV (RBC) [Entitic vol] 87.9 fL Normal 81.0-99.0 [facility] Comment on above: Performed By: #### C BC #### [facility] [address] [place] [address] Dr. Kasia Nath MONO # 0.8 103/ul Normal 0.3-0.8 [facility] Comment on above: Performed By: #### C BC #### [facility] [address] [place] [address] Dr. Kasia Nath Monocytes/100 WBC (Bld) 8.8 % Normal 1.7-12.0 [facility] Comment on above: Performed By: #### C BC #### [facility] [address] [place] [address] Dr. Kasia Nath NEUT # 5.6 103/ul Normal 1.4-6.5 [facility] Comment on above: Performed By: #### C BC #### [facility] [address] [address] [address] Kasia Nath Neutrophils/100 WBC (Bld) 65.4 % Normal 43.0-75.0 [facility] Comment on above: Performed By: #### C BC #### [facility] [address] [address] [address] Kasia Nath Platelet mean volume (Bld) [Entitic vol] 10.6 fL Normal 9.5-13.5 [facility] Comment on above: Performed By: #### C BC #### [facility] [address] [address] [address] Kasia Nath PLT 222 103/ul Normal 150-450 [facility] Comment on above: Performed By: #### C BC #### [facility] [address] [place] [address] Dr. Kasia Nath RBC 4.53 106/ul Normal 4.20-5.40 [facility] Comment on above: Performed By: #### C BC #### [facility] [address] [place] [address] Dr. Kasia Nath WBC 8.6 103/ul Normal 4.0-11.0 [facility] Comment on above: Performed By: #### C BC #### [facility] [address] [place] [address] Dr. Kasia Nath PROF 14(COMP METB)on 023 Albumin [Mass/Vol] 3.3 g/dL Critically low 3.4-5.0 [facility] Comment on above: Performed By: #### B LEGAL INTERN, CMADM, CMP #### [facility] [address] [address] [address] Kasia Nath Albumin/Globulin [Mass ratio] 0.7 {ratio} Normal [facility] Comment on above: Performed By: #### B LEGAL INTERN, CMADM, CMP #### [facility] [address] [place] [address] Dr. Kasia Nath ALP [Catalytic activity/Vol] 106 U/L Normal 46-116 [facility] Comment on above: Performed By: #### B LEGAL INTERN, CMADM, CMP #### [facility] [address] [address] [address] Kasia Nath ALT [Catalytic activity/Vol] 22 U/L Normal 14-59 [facility] Comment on above: Performed By: #### B LEGAL INTERN, CMADM, CMP #### [facility] [address] [address] [address] Kasia Nath Anion gap [Moles/Vol] 12.0 mmol/L Normal [facility] Comment on above: Performed By: #### B LEGAL INTERN, CMADM, CMP #### [facility] [address] [address] [address] Kasia Nath AST [Catalytic activity/Vol] 23 U/L Normal 15-37 [facility] Comment on above: Performed By: #### B LEGAL INTERN, CMADM, CMP #### [facility] [address] [place] [address] Dr. Kasia Nath Bilirubin [Mass/Vol] 0.7 mg/dL Normal 0.2-1.0 [facility] Comment on above: Performed By: #### B LEGAL INTERN, CMADM, CMP #### [facility] [address] [place] [address] Dr. Kasia Nath Calcium [Mass/Vol] 8.8 mg/dL Normal 8.5-10.1 [facility] Comment on above: Performed By: #### B LEGAL INTERN, CMADM, CMP #### [facility] [address] [address] [address] Kasia Nath Chloride [Moles/Vol] 98 mmol/L Normal 98-107 [facility] Comment on above: Performed By: #### B LEGAL INTERN, CMADM, CMP #### [facility] [address] [place] [address] Dr. Kasia Nath CO2 [Moles/Vol] 30.2 mmol/L Normal 21.0-32.0 [facility] Comment on above: Performed By: #### B LEGAL INTERN, CMADM, CMP #### [facility] [address] [place] [address] Dr. Kasia Nath Creatinine [Mass/Vol] 1.19 mg/dL Critically high 0.55-1.02 [facility] Comment on above: Performed By: #### B LEGAL INTERN, LEONORA, CMP #### [facility] [address] [address] [address] Kasia Nath EGFR-AF BAHAMIAN 53 mL/min/1.73m2 Critically low >=60 [facility] Comment on above: Performed By: #### B LEGAL INTERN, CMADM, CMP #### [facility] [address] [address] [address] Kasia Nath EGFR-NON AF BAHAMIAN 44 mL/min/1.73m2 Critically low >=60 [facility] Comment on above: Performed By: #### B LEGAL INTERN, MACDM, CMP #### [facility] [address] [address] [address] Kasia Nath Globulin (S) [Mass/Vol] 4.7 g/dL Normal [facility] Comment on above: Performed By: #### B LEGAL INTERN, MACDM, CMP #### [facility] [address] [address] [address] Kasia Nath Glucose [Mass/Vol] 124 mg/dL Critically high 74-106 [facility] Comment on above: Performed By: #### B LEGAL INTERN, MACDM, CMP #### [facility] [address] [place] [address] Dr. Kasia Nath Potassium [Moles/Vol] 3.2 mmol/L Critically low 3.5-5.1 [facility] Comment on above: Performed By: #### B LEGAL INTERN, CMADM, CMP #### [facility] [address] [address] [address] Kasia Nath Protein [Mass/Vol] 8.0 g/dL Normal 6.4-8.2 [facility] [place] [facility] Comment on above: Performed By: #### B LEGAL INTERN, CMADM, CMP #### [facility] [address] [address] [address] Kasia Nath Sodium [Moles/Vol] 137 mmol/L Normal 136-145 [facility] Comment on above: Performed By: #### B LEGAL INTERN, CMADM, CMP #### [facility] [address] [place], [place] [address] Dr. Kasia Nath Urea nitrogen [Mass/Vol] 29.0 mg/dL Critically high 7.0-18.0 [facility] Comment on above: Performed By: #### B LEGAL INTERN, CMADM, CMP #### [facility] [address] [place], [place] [address] Dr. Kasia Nath Urea nitrogen/Creatinine [Mass ratio] 24.4 mg/mg Normal [facility] Comment on above: Performed By: #### B LEGAL INTERN, CMADM, CMP #### [facility] [address] [place], [place] [address] Dr. Kasia Nath TROPONIN, HIGH SENSITIVITYon 01-05-2023 HSTROP 18.4 pg/mL Normal 4.0-51.3 [facility] Comment on above: Result Comment: CUT- OFF POINTS HAVE BEEN ESTABLISHED BASED ON THE FOURTH UNIVERSAL DEFINITIONS OF MYOCARDIAL INFARCTION. THE UPPER REFERENCE LIMIT (URL) OF TROPONIN, DEFINED THE 99TH PERCENTILE OF cTnI DISTRIBUTION IN A REFERENCE POPULATION, HAS BEEN CONFIRMED THE DECISION THRESHOLD FOR LA DIAGNOSIS. Performed By: #### H STROPN ####[facility] [address] [place], [place] [address]CbDr. Kasia Nath XR CHEST 1 Von 01-05-2023 [...] BIN ROJAS Date: 2023-01-05 04:39 Normal [facility] BNPon 01-02-2023 Natriuretic peptide B (Bld) [Mass/Vol] 2583.0 pg/mL Critically high <=1,800.0 [facility] Comment on above: Performed By: #### B LEGAL INTERN, CMP ####[facility] [address] [place], [place] [address]NlDr. Kasia Nath CBC AUTO DIFFon 01-02-2023 BASO # 0.1 103/ul Normal 0.0-0.1 [facility] Comment on above: Performed By: #### P OCGLUC #### [facility] [address] [address] [address] Kasia Nath Basophils/100 WBC (Bld) 0.9 % Normal 0.2-2.0 [facility] Comment on above: Performed By: #### P OCGLUC #### [facility] [address] [address] [address] Kasia Nath EO # 0.2 103/ul Normal 0.0-0.7 [facility] Comment on above: Performed By: #### P OCGLUC #### [facility] [address] [address] [address] Kasia Nath Eosinophils/100 WBC (Bld) 2.3 % Normal 0.9-7.0 [facility] Comment on above: Performed By: #### P OCGLUC #### [facility] [address] [address] [address] Kasia Nath Erythrocyte distribution width (RBC) [Ratio] 13.8 % Normal 11.0-15.0 [facility] Comment on above: Performed By: #### P OCGLUC #### [facility] [address] [address] [address] Kasia Nath Hematocrit (Bld) [Volume fraction] 35.5 % Critically low 36.0-48.0 [facility] Comment on above: Performed By: #### P OCGLUC #### [facility] [address] [address] [address] Kasia Nath Hemoglobin (Bld) [Mass/Vol] 11.6 g/dL Critically low 12.0-16.0 [facility] Comment on above: Performed By: #### P OCGLUC #### [facility] [address] [address] [address] Kasia Nath IG # 0.02 10e3/ul Normal 0.00-0.03 [facility] Comment on above: Performed By: #### P OCGLUC #### [facility] [address] [address] [address] Kasia Nath IG % 0.3 % Normal 0.0-0.5 [facility] Comment on above: Performed By: #### P OCGLUC #### [facility] [address] [address] [address] Kasia Nath LYMPH # 2.0 103/ul Normal 1.2-3.8 [facility] Comment on above: Performed By: #### P OCGLUC #### [facility] [address] [place] [address] Dr. Kasia Nath Lymphocytes/100 WBC (Bld) 24.8 % Normal 20.5-60.0 [facility] Comment on above: Performed By: #### P OCGLUC #### [facility] [address] [address] [address] Kasia Nath MANUAL DIFF REQ NO Normal [facility] Comment on above: Performed By: #### P OCGLUC #### [facility] [address] [address] [address] Kasia Nath MCH (RBC) [Entitic mass] 28.7 pg Normal 26.7-34.0 [facility] Comment on above: Performed By: #### P OCGLUC #### [facility] [address] [address] [address] Kasia Nath MCHC (RBC) [Mass/Vol] 32.7 g/dL Normal 29.9-35.2 [facility] Comment on above: Performed By: #### P OCGLUC #### [facility] [address] [address] [address] Kasia Nath MCV (RBC) [Entitic vol] 87.9 fL Normal 81.0-99.0 [facility] Comment on above: Performed By: #### P OCGLUC #### [facility] [address] [address] [address] Kasia Nath MONO # 0.8 103/ul Normal 0.3-0.8 [facility] Comment on above: Performed By: #### P OCGLUC #### [facility] [address] [address] [address] Kasia Nath Monocytes/100 WBC (Bld) 9.6 % Normal 1.7-12.0 [facility] Comment on above: Performed By: #### P OCGLUC #### [facility] [address] [address] [address] Kasia Nath NEUT # 5.0 103/ul Normal 1.4-6.5 [facility] Comment on above: Performed By: #### P OCGLUC #### [facility] [address] [address] [address] Kasia Nath Neutrophils/100 WBC (Bld) 62.1 % Normal 43.0-75.0 [facility] Comment on above: Performed By: #### P OCGLUC #### [facility] [address] [address] [address] Kasia Nath Platelet mean volume (Bld) [Entitic vol] 10.7 fL Normal 9.5-13.5 [facility] Comment on above: Performed By: #### P OCGLUC #### [facility] [address] [address] [address] Kasia Nath PLT 204 103/ul Normal 150-450 [facility] Comment on above: Performed By: #### P OCGLUC #### [facility] [address] [address] [address] Kasia Nath RBC 4.04 106/ul Critically low 4.20-5.[address] [facility] Comment on above: Performed By: #### P OCGLUC #### [facility] [address] [address] [address] Kasia Nath WBC 8.0 103/ul Normal 4.0-11.0 [facility] Comment on above: Performed By: #### P OCGLUC #### [facility] [address] [address] [address] Kasia Nath GLYCOHEMOGLOBIN A1Con 2022 ADA RECOMMENDATION SEE BELOW Normal [facility] Comment on above: Result Comment: ADA RECOMMENDED LIMIT 4.0 - 6.0 ADA THERAPEUTIC TARGET < 7.0 ACTION SUGGESTED > 7.0 Performed By: #### A 1C ####[facility] [address] [address]DrDoreen Nath Glucose [Mass/Vol] 298 mg/dL Normal [facility] Comment on above: Performed By: #### A 1C ####[facility] [address] [address]Dr. Kasia Nath HbA1c (Bld) [Mass fraction] 12.0 % Critically high 4.5-6.2 [facility] Comment on above: Performed By: #### A 1C ####[facility] [address] [place], [place] [address]Dr. Kasia Nath POINT OF CARE GLUCOSEon 12-14 Glucose [Mass/Vol] 227 mg/dL Critically high 74-106 [facility] Comment on above: Performed By: #### C BC #### [facility] [address] [address] [address] Kasia Nath Glucose [Mass/Vol] 214 mg/dL Critically high 74-106 [facility] Comment on above: Performed By: #### C BC #### [facility] [address] [address] [address] Kasia Nath PROF 14(COMP METB)on 023 Albumin [Mass/Vol] 2.6 g/dL Critically low 3.4-5.0 [facility] Comment on above: Performed By: #### B LEGAL INTERN, CMP ####[facility] [address] [address]DrDoreen Nath Albumin/Globulin [Mass ratio] 0.6 {ratio} Normal [facility] Comment on above: Performed By: #### B LEGAL INTERN, CMP ####[facility] [address] [address]Dr. Kasia Nath ALP [Catalytic activity/Vol] 94 U/L Normal 46-116 [facility] Comment on above: Performed By: #### B LEGAL INTERN, CMP ####[facility] [address] [address]Dr. Kasia Nath ALT [Catalytic activity/Vol] 16 U/L Normal 14-59 [facility] Comment on above: Performed By: #### B LEGAL INTERN, CMP ####[facility] [address] [place], [place] [address]Dr. Kasia Nath Anion gap [Moles/Vol] 10.6 mmol/L Normal [facility] Comment on above: Performed By: #### B LEGAL INTERN, CMP ####[facility] [address] [place], [place] [address]Dr. Kasia Nath AST [Catalytic activity/Vol] 15 U/L Normal 15-37 [facility] Comment on above: Performed By: #### B LEGAL INTERN, CMP ####[facility] [address] [place], [place] [address]Dr. Kasia Nath Bilirubin [Mass/Vol] 0.8 mg/dL Normal 0.2-1.0 [facility] Comment on above: Performed By: #### B LEGAL INTERN, CMP ####[facility] [address] [place], [place] [address]Dr. Kasia Nath Calcium [Mass/Vol] 8.5 mg/dL Normal 8.5-10.1 [facility] Comment on above: Performed By: #### B LEGAL INTERN, CMP ####[facility] [address] [place], [place] [address]Dr. Kasia Nath Chloride [Moles/Vol] 102 mmol/L Normal 98-107 [facility] Comment on above: Performed By: #### B LEGAL INTERN, CMP ####[facility] [address] [place], [place] [address]Dr. Fartuncristy Nath CO2 [Moles/Vol] 30.2 mmol/L Normal 21.0-32.0 [facility] Comment on above: Performed By: #### B LEGAL INTERN, CMP ####[facility] [address] [address]Dr. Kasia Nath Creatinine [Mass/Vol] 0.94 mg/dL Normal 0.55-1.02 [facility] Comment on above: Performed By: #### B LEGAL INTERN, CMP ####[facility] [address] [address]Dr. Kasia Nath EGFR-AF BAHAMIAN >60 Normal >=60 [facility] [place] [facility] Comment on above: Performed By: #### B LEGAL INTERN, CMP ####[facility] [address] [address]Dr. Kasia Nath EGFR-NON AF BAHAMIAN 58 mL/min/1.73m2 Critically low >=60 [facility] Comment on above: Performed By: #### B LEGAL INTERN, CMP ####[facility] [address] [place], [place] [address]Dr. Kasia Nath Globulin (S) [Mass/Vol] 4.0 g/dL Normal [facility] Comment on above: Performed By: #### B LEGAL INTERN, CMP ####[facility] [address] [place], [place] [address]Dr. Kasia Nath Glucose [Mass/Vol] 150 mg/dL Critically high 74-106 [facility] Comment on above: Performed By: #### B LEGAL INTERN, CMP ####[facility] [address] [place], [place] [address]Dr. Kasia Nath Potassium [Moles/Vol] 3.8 mmol/L Normal 3.5-5.1 [facility] Comment on above: Performed By: #### B LEGAL INTERN, CMP ####[facility] [address] [address]Dr. Kasia Nath Protein [Mass/Vol] 6.6 g/dL Normal 6.4-8.2 [facility] Comment on above: Performed By: #### B LEGAL INTERN, CMP ####[facility] [address] [place], [place] [address]Dr. Kasia Nath Sodium [Moles/Vol] 139 mmol/L Normal 136-145 [facility] Comment on above: Performed By: #### B LEGAL INTERN, CMP ####[facility] [address] [id number] Nath Urea nitrogen [Mass/Vol] 24.0 mg/dL Critically high 7.0-18.0 [facility] Comment on above: Performed By: #### B LEGAL INTERN, CMP ####[facility] [address] [place], [place] [address]QtDoreen Nath Urea nitrogen/Creatinine [Mass ratio] 25.5 mg/mg Normal [facility] Comment on above: Performed By: #### B LEGAL INTERN, CMP ####[facility] [address] [id number]. Kasia Nath BNPon 01-01-2023 Natriuretic peptide B (Bld) [Mass/Vol] 1419.0 pg/mL Normal <=1,800.0 [facility] Comment on above: Performed By: #### B LEGAL INTERN #### [facility] [address] [place] [address] Dr. Kasia Nath CARDIAC EMERY 3-6on 3 CK [Catalytic activity/Vol] 80 U/L Normal 26-192 [facility] Comment on above: Performed By: #### P OCGLUC #### [facility] [address] [place] [address] Dr. Kasai Nath CK.MB [Mass/Vol] 1.85 ng/mL Normal <=3.60 [facility] [place] [facility] Comment on above: Performed By: #### P OCGLUC #### [facility] [address] [place] [address] Dr. Kasia Nath HSTROP 13.2 pg/mL Normal 4.0-51.3 [facility] Comment on above: Result Comment: CUT- OFF POINTS HAVE BEEN ESTABLISHED BASED ON THE FOURTH UNIVERSAL DEFINITIONS OF MYOCARDIAL INFARCTION. THE UPPER REFERENCE LIMIT (URL) OF TROPONIN, DEFINED THE 99TH PERCENTILE OF cTnI DISTRIBUTION IN A REFERENCE POPULATION, HAS BEEN CONFIRMED THE DECISION THRESHOLD FOR LA DIAGNOSIS. Performed By: #### P OCGLUC #### [facility] [address] [place] [address] Dr. Kasia Nath CK [Catalytic activity/Vol] 73 U/L Normal 26-192 [facility] Comment on above: Performed By: #### P OCGLUC #### [facility] [address] [address] [address] Kasia Nath CK.MB [Mass/Vol] 1.71 ng/mL Normal <=3.60 [facility] [place] [facility] Comment on above: Performed By: #### P OCGLUC #### [facility] [address] [address] [address] Kasia Nath HSTROP 13.6 pg/mL Normal 4.0-51.3 [facility] Comment on above: Result Comment: CUT- OFF POINTS HAVE BEEN ESTABLISHED BASED ON THE FOURTH UNIVERSAL DEFINITIONS OF MYOCARDIAL INFARCTION. THE UPPER REFERENCE LIMIT (URL) OF TROPONIN, DEFINED THE 99TH PERCENTILE OF cTnI DISTRIBUTION IN A REFERENCE POPULATION, HAS BEEN CONFIRMED THE DECISION THRESHOLD FOR LA DIAGNOSIS. Performed By: #### P OCGLUC #### [facility] [address] [place] [address] Dr. Kasia Nath CARDIAC EMERY ADMITon 023 CK [Catalytic activity/Vol] 71 U/L Normal 26-192 [facility] Comment on above: Performed By: #### C BC #### [facility] [address] [address] [address] Kasia Nath CK.MB [Mass/Vol] 1.69 ng/mL Normal <=3.60 [facility] [place] [facility] Comment on above: Performed By: #### C BC #### [facility] [address] [address] [address] Kasia Nath HSTROP 13.0 pg/mL Normal 4.0-51.3 [facility] Comment on above: Result Comment: CUT- OFF POINTS HAVE BEEN ESTABLISHED BASED ON THE FOURTH UNIVERSAL DEFINITIONS OF MYOCARDIAL INFARCTION. THE UPPER REFERENCE LIMIT (URL) OF TROPONIN, DEFINED THE 99TH PERCENTILE OF cTnI DISTRIBUTION IN A REFERENCE POPULATION, HAS BEEN CONFIRMED THE DECISION THRESHOLD FOR LA DIAGNOSIS. Performed By: #### C BC #### [facility] [address] [address] [address] Kasia Nath GRETTA 75 ng/mL Normal 9-82 [facility] Comment on above: Performed By: #### C BC #### [facility] [address] [address] [address] Kasia Nath CBC AUTO DIFFon 01-01-2023 BASO # 0.1 103/ul Normal 0.0-0.1 [facility] Comment on above: Performed By: #### C BC #### [facility] [address] [place] [address] Dr. Kasia Nath Basophils/100 WBC (Bld) 1.1 % Normal 0.2-2.0 [facility] Comment on above: Performed By: #### C BC #### [facility] [address] [place] [address] Dr. Kasia Nath EO # 0.2 103/ul Normal 0.0-0.7 [facility] Comment on above: Performed By: #### C BC #### [facility] [address] [place] [address] Dr. Kasia Nath Eosinophils/100 WBC (Bld) 2.9 % Normal 0.9-7.0 [facility] Comment on above: Performed By: #### C BC #### [facility] [address] [place] [address] Dr. Kasia Nath Erythrocyte distribution width (RBC) [Ratio] 13.8 % Normal 11.0-15.0 [facility] Comment on above: Performed By: #### C BC #### [facility] [address] [place] [address] Dr. Kasia Nath Hematocrit (Bld) [Volume fraction] 36.2 % Normal 36.0-48.0 [facility] Comment on above: Performed By: #### C BC #### [facility] [address] [place] [address] Dr. Kasia Nath Hemoglobin (Bld) [Mass/Vol] 12.1 g/dL Normal 12.0-16.0 [facility] Comment on above: Performed By: #### C BC #### [facility] [address] [place] [address] Dr. Kasia Nath IG # 0.02 10e3/ul Normal 0.00-0.03 [facility] Comment on above: Performed By: #### C BC #### [facility] [address] [place] [address] Dr. Kasia Nath IG % 0.3 % Normal 0.0-0.5 [facility] Comment on above: Performed By: #### C BC #### [facility] [address] [place] [address] Dr. Kasia Nath LYMPH # 1.5 103/ul Normal 1.2-3.8 [facility] Comment on above: Performed By: #### C BC #### [facility] [address] [place] [address] Dr. Kasia Nath Lymphocytes/100 WBC (Bld) 19.9 % Critically low 20.5-60.0 [facility] Comment on above: Performed By: #### C BC #### [facility] [address] [place] [address] Dr. Kasia Nath MANUAL DIFF REQ NO Normal [facility] Comment on above: Performed By: #### C BC #### [facility] [address] [place] [address] Dr. Kasia Nath MCH (RBC) [Entitic mass] 29.7 pg Normal 26.7-34.0 [facility] Comment on above: Performed By: #### C BC #### [facility] [address] [place] [address] Dr. Kasia Nath MCHC (RBC) [Mass/Vol] 33.4 g/dL Normal 29.9-35.2 [facility] Comment on above: Performed By: #### C BC #### [facility] [address] [place] [address] Dr. Kasia Nath MCV (RBC) [Entitic vol] 88.9 fL Normal 81.0-99.0 [facility] Comment on above: Performed By: #### C BC #### [facility] [address] [place] [address] Dr. Kasia Nath MONO # 0.6 103/ul Normal 0.3-0.8 [facility] Comment on above: Performed By: #### C BC #### [facility] [address] [place] [address] Dr. Kasia Nath Monocytes/100 WBC (Bld) 8.0 % Normal 1.7-12.0 [facility] Comment on above: Performed By: #### C BC #### [facility] [address] [place] [address] Dr. Kasia Nath NEUT # 5.1 103/ul Normal 1.4-6.5 [facility] Comment on above: Performed By: #### C BC #### [facility] [address] [place] [address] Dr. Kasia Nath Neutrophils/100 WBC (Bld) 67.8 % Normal 43.0-75.0 [facility] Comment on above: Performed By: #### C BC #### [facility] [address] [place] [address] Dr. Kasia Nath Platelet mean volume (Bld) [Entitic vol] 10.4 fL Normal 9.5-13.5 [facility] Comment on above: Performed By: #### C BC #### [facility] [address] [place] [address] Dr. Kasia Nath PLT 200 103/ul Normal 150-450 [facility] Comment on above: Performed By: #### C BC #### [facility] [address] [place] [address] Dr. Kasia Nath RBC 4.07 106/ul Critically low 4.20-5.[address] [facility] Comment on above: Performed By: #### C BC #### [facility] [address] [place] [address] Dr. Kasia Nath WBC 7.5 103/ul Normal 4.0-11.0 [facility] Comment on above: Performed By: #### C BC #### [facility] [address] [place] [address] CHEST WO CONon [...] two extremes (Agatston score 101-1000). https://pubs.rsna.org/do i/abs/10.1148/radiol.[email or web address] 69642 Electronically authenticated by: RENETTA MICHAELS Date: 2023-01-01 14:55 Normal [facility] Covid-19 PCR (CVDTB)on 12-14 SARS-CoV-2 (COVID-19) RNA FERN+probe Ql (Unsp spec) Not detected Normal NOT DETECTED [facility] Comment on above: Result Comment: When [...] for this test is supported by the [employer] and Human Service's declaration that [...] #### C [facility] #### [facility] [address] [place] [address] Dr. Kasia Nath ECHO LIMITED STUDYon 023 ECHO LIMITED STUDY Patient: SAIMA CALL Exam Date: 01/01/2023 : 1945 Gender:F Ordering : MARTINE GUERRERO . Admission #: [id number] Family : Order #: [id number] CLICK HERE TO VIEW EXAM ECHOCARDIOGRAM REPORT [...] Kaplan M.D. on 01/01/2023 at 13:19 Normal [facility] GLYCOHEMOGLOBIN A1Con 2022 ADA RECOMMENDATION SEE BELOW Normal [facility] Comment on above: Result Comment: ADA RECOMMENDED LIMIT 4.0 - 6.0 ADA THERAPEUTIC TARGET < 7.0 ACTION SUGGESTED > 7.0 Performed By: #### P OCGLUC #### [facility] [address] [address] [address] Kasia Nath Glucose [Mass/Vol] 318 mg/dL Normal [facility] Comment on above: Performed By: #### P OCGLUC #### [facility] [address] [address] [address] Kasia Nath HbA1c (Bld) [Mass fraction] 12.7 % Critically high 4.5-6.2 [facility] Comment on above: Performed By: #### P OCGLUC #### [facility] [address] [address] [address] Kasia Nath POINT OF CARE GLUCOSEon 12-14 Glucose [Mass/Vol] 162 mg/dL Critically high -106 [facility] Comment on above: Performed By: #### P OCGLUC ####[facility] [id number] [address]Dr. Kasia Nath Glucose [Mass/Vol] 213 mg/dL Critically high -106 [facility] Comment on above: Performed By: #### P OCGLUC ####[facility] [id number] [id number]. Kasia Nath Glucose [Mass/Vol] 248 mg/dL Critically high -106 [facility] Comment on above: Performed By: #### P OCGLUC #### [facility] [address] [address] [address] Kasia Nath PROF CHEM 8 (BAS METB)on Anion gap [Moles/Vol] 11.8 mmol/L Normal [facility] Comment on above: Performed By: #### C BC #### [facility] [address] [address] [address] Kasia Nath Calcium [Mass/Vol] 8.4 mg/dL Critically low 8.5-10.1 [facility] Comment on above: Performed By: #### C BC #### [facility] [address] [address] [address] Kasia Nath Chloride [Moles/Vol] 102 mmol/L Normal 98-107 [facility] Comment on above: Performed By: #### C BC #### [facility] [address] [place] [address] Dr. Kasia Nath CO2 [Moles/Vol] 28.4 mmol/L Normal 21.0-32.0 [facility] Comment on above: Performed By: #### C BC #### [facility] [address] [place] [address] Dr. Kasia Nath Creatinine [Mass/Vol] 1.09 mg/dL Critically high 0.55-1.02 [facility] Comment on above: Performed By: #### C BC #### [facility] [address] [place] [address] Dr. Kasia Nath EGFR-AF BAHAMIAN 59 mL/min/1.73m2 Critically low >=60 [facility] Comment on above: Performed By: #### C BC #### [facility] [address] [address] [address] Kasia Nath EGFR-NON AF BAHAMIAN 49 mL/min/1.73m2 Critically low >=60 [facility] Comment on above: Performed By: #### C BC #### [facility] [address] [place] [address] Dr. Kasia Nath Glucose [Mass/Vol] 247 mg/dL Critically high 74-106 [facility] Comment on above: Performed By: #### C BC #### [facility] [address] [place] [address] Dr. Kasia Nath Potassium [Moles/Vol] 4.2 mmol/L Normal 3.5-5.1 [facility] Comment on above: Performed By: #### C BC #### [facility] [address] [address] [address] Kasia Nath Sodium [Moles/Vol] 138 mmol/L Normal 136-145 [facility] Comment on above: Performed By: #### C BC #### [facility] [address] [address] [address] Kasia Nath Urea nitrogen [Mass/Vol] 28.0 mg/dL Critically high 7.0-18.0 [facility] Comment on above: Performed By: #### C BC #### [facility] [address] [place] [address] Dr. Kasia Nath Urea nitrogen/Creatinine [Mass ratio] 25.7 mg/mg Normal [facility] Comment on above: Performed By: #### C BC #### [facility] [address] [place] [address] Dr. Kasia Nath XR CHEST 1 Von [...] by: Miranda ALVAREZ Date: 2023-01-01 05:38 Normal [facility] ECHOCARDIO M/2D COMPLETEon 1 11-15-2021 ECHOCARDIO M/2D COMPLETE Patient: JOE CALL Exam Date: 09/15/2022 : 1945 Gender:F Ordering : [facility] Admission #: [id number] Family : DR SHANTEL STEVEN M.D. Order #: [id number] CLICK HERE TO VIEW EXAM ECHOCARDIOGRAM REPORT [...] M.D. on 09/15/2022 at 18:17 Normal [facility] GI PANEL (PCR)on 05-02-2022 Adenovirus F 40/41 Not detected Normal NOT DETECTED [facility] Comment on above: Performed By: #### P OCGLUC #### [facility] [address] [place] [address] Dr. Kasia Nath Astrovirus Not detected Normal NOT DETECTED [facility] Comment on above: Performed By: #### P OCGLUC #### [facility] [address] [place] [address] Dr. Kasia Nath C. Diff toxin A/B Not detected Normal NOT DETECTED [facility] Comment on above: Performed By: #### P OCGLUC #### [facility] [address] [place] [address] Dr. Kasia Nath Campylobacter Not detected Normal NOT DETECTED [facility] Comment on above: Performed By: #### P OCGLUC #### [facility] [address] [place] [address] Dr. Kasia Nath Cryptosporidium Not detected Normal NOT DETECTED [facility] Comment on above: Performed By: #### P OCGLUC #### [facility] [address] [address] [address] Kasia Nath Cyclos. Cayetanensis Not detected Normal NOT DETECTED [facility] Comment on above: Performed By: #### P OCGLUC #### [facility] [address] [place] [address] Dr. Kasia Nath E. Coli O157 Not Applicable Normal Not Applicable [facility] Comment on above: Performed By: #### P OCGLUC #### [facility] [address] [place] [address] Dr. Kasia Nath E. histolytica Not detected Normal NOT DETECTED [facility] Comment on above: Performed By: #### P OCGLUC #### [facility] [address] [place] [address] Dr. Kasia Nath EAEC Not detected Normal NOT DETECTED [facility] Comment on above: Performed By: #### P OCGLUC #### [facility] [address] [place] [address] Dr. Kasia Nath EIEC Not detected Normal NOT DETECTED [facility] Comment on above: Performed By: #### P OCGLUC #### [facility] [address] [place] [address] Dr. Kasia Nath EPEC Detected Abnormal NOT DETECTED [facility] Comment on above: Performed By: #### P OCGLUC #### [facility] [address] [place] [address] Dr. Kasia Nath ETEC Not detected Normal NOT DETECTED [facility] Comment on above: Performed By: #### P OCGLUC #### [facility] [address] [place] [address] Dr. Kasia Nath G. Lamblia Not detected Normal NOT DETECTED [facility] Comment on above: Performed By: #### P OCGLUC #### [facility] [address] [place] [address] Dr. Kasia Nath GIPANEL CONTROLS PASSED Normal [facility] Comment on above: Performed By: #### P OCGLUC #### [facility] [address] [address] [address] Kasia [facility] HEADER GI PANEL BACTERIA Normal [facility] Comment on above: Performed By: #### P OCGLUC #### [facility] [address] [address] [address] Kasia GE ECOLI GI PANEL DIARRHEAGEN IC E.COLI / SHIGELLA Normal [facility] Comment on above: Performed By: #### P OCGLUC #### [facility] [address] [place] [address] Dr. Kasia GE INFO SEE BELOW [facility] Comment on above: Result Comment: EAEC - Enteroaggregative E. Coli EPEC- Enteropathogenic E. Coli ETEC- Enterotoxigenic E. Coli lt/st STEC- Shigella-like toxin-producing E. Coli stx1/stx2 EIEC- Shigella/Enteroinvasive E. Coli Performed By: #### P OCGLUC #### [facility] [address] [place] [address] Dr. Kasia GE PARASITES GI PANEL PARASITES Normal [facility] Comment on above: Performed By: #### P OCGLUC #### [facility] [address] [place] [address] Dr. Kasia GE VIRUS GI PANEL VIRUSES Normal [facility] Comment on above: Performed By: #### P OCGLUC #### [facility] [address] [place] [address] Dr. Kasia Nath Norovirus GI/GII Not detected Normal NOT DETECTED [facility] Comment on above: Performed By: #### P OCGLUC #### [facility] [address] [place] [address] Dr. Kasia Garland. Shigelloides Not detected Normal NOT DETECTED [facility] Comment on above: Performed By: #### P OCGLUC #### [facility] [address] [place] [address] Dr. Kasia Nath Rotavirus A Not detected Normal NOT DETECTED [facility] Comment on above: Performed By: #### P OCGLUC #### [facility] [address] [address] [address] Kasia Nath Salmonella Not detected Normal NOT DETECTED [facility] Comment on above: Performed By: #### P OCGLUC #### [facility] [address] [address] [address] Kasia Nath Sapovirus Not detected Normal NOT DETECTED [facility] Comment on above: Performed By: #### P OCGLUC #### [facility] [address] [address] [address] Kasia Nath STEC Not detected Normal NOT DETECTED [facility] Comment on above: Performed By: #### P OCGLUC #### [facility] [address] [address] [address] Kasia Nath Vibrio Not detected Normal NOT DETECTED [facility] Comment on above: Performed By: #### P OCGLUC #### [facility] [address] [place] [address] Dr. Kasia Nath Vibrio Cholera Not detected Normal NOT DETECTED [facility] Comment on above: Performed By: #### P OCGLUC #### [facility] [address] [address] [address] Kasia Nath Y. Enterocolitica Not detected Normal NOT DETECTED [facility] Comment on above: Performed By: #### P OCGLUC #### [facility] [address] [place] [address] Dr. Kasia Nath OCC BLD IMMUNO SCREENon 04-13 OCCULT BLOOD Negative Normal NEGATIVE [facility] Comment on above: Performed By: #### C BC #### [facility] [address] [place] [address] Dr. Kasia Nath XR knee BI 4Von 08-25-2021 XR knee BI 4V [facility] [employer] Other XR knee BI 4V [facility] [employer] Other XR knee BI 4V [address] [place] [address] [employer] Other XR knee BI 4V [address] [employer] Other XR knee BI 4V XRay Report [place] [employer] Other XR knee BI 4V Signed [employer] Other XR knee BI 4V Patient: Joe Call MR#: [id number] [employer] Other XR knee BI 4V 0 [employer] Other XR knee BI 4V : 1945 Acct:[id number] [employer] Other XR knee BI 4V Age/Sex: 76 / F ADM Date: 08/25/21 [employer] Other XR knee BI 4V Loc: [facility] Room: Type : [facility] [employer] Other XR knee BI 4V Attending Dr: Akbar Cui II, MD [employer] Other XR knee BI 4V Ordering Provider: Akbar Cui MD [employer] Other XR knee BI 4V Date of Service: 08/25/21 [employer] Other XR knee BI 4V XR/XR knee BI 4V: Pain in right knee;Pain in left knee [employer] Other XR knee BI 4V Copies to: Akbar Cui MD [employer] Other XR knee BI 4V XR knee BI 4V 2020 1:32 PM [employer] Other XR knee BI 4V SIGNS AND SYMPTOMS: Bilateral knee pain with decreased range of motion, weakness [employer] Other XR knee BI 4V PROTOCOL: Frontal, lateral, and sunrise views of the bilateral knees [employer] Other XR knee BI 4V COMPARISON: None [employer] Other XR knee BI 4V FINDINGS: [employer] Other XR knee BI 4V There is mild narrow ing of the medial weightbearing joint spaces. There is mild patellofemoral [employer] Other XR knee BI 4V joint space loss. Th ere is spurring of the poles of the patella bilaterally. There is mild lateral [employer] Other XR knee BI 4V patellar subluxation bilaterally. There is no evidence of acute displaced fracture. Well-corticated [employer] Other XR knee BI 4V ossific structures o r separate from the right medial weightbearing joint space. This may represent a [employer] Other XR knee BI 4V calcified loose bodies. [employer] Other XR knee BI 4V X R/XR knee BI 4V [employer] Other XR knee BI 4V IMPRESSION: [employer] Other XR knee BI 4V Degenerative changes are noted are noted bilaterally, as above. [employer] Other XR knee BI 4V Well-corticated ossi fic structures or separate from the right medial weightbearing joint space. This [employer] Other XR knee BI 4V may represent a calcified loose bodies. [employer] Other XR knee BI 4V No acute displaced fracture. [employer] Other XR knee BI 4V There is mild latera l subluxation of the patella within the patellofemoral joint space bilaterally. [employer] Other XR knee BI 4V Impression dictated by: Emery Lobo M.D.08/25/2021 2:51 PM [employer] Other XR knee BI 4V Dictation Location: [place] [address] [employer] Other XR knee BI 4V Transcribed By: RAFAEL 08/25/21 145 [employer] Other XR knee BI 4V Dictated By: Emery Lobo II, MD 08/25/21 1447 [employer] Other XR knee BI 4V Signed By: [employer] Other XR knee BI 4V 08/25/21 1451 [facility] [employer] Other XR pelvis 1-2Von 08-25-2021 XR pelvis 1-2V XR/XR pelvis 1-2V: Pain in right knee;Pain in left knee [employer] Other XR pelvis 1-2V XR pelvis 1-2V 08/25/2021 1:32 PM [employer] Other XR pelvis 1-2V SIGNS AND SYMPTOMS: Bilateral generalized knee pain, limited range of motion with weakness [employer] Other XR pelvis 1-2V PROTOCOL: Frontal radiograph of the pelvis [employer] Other XR pelvis 1-2V There is mild narrow ing of the weightbearing joint spaces. Mild degenerative changes are noted in [employer] Other XR pelvis 1-2V the symphysis pubis. There is no evidence of fracture or dislocation. Vascular calcifications are [employer] Other XR pelvis 1-2V present in the pelvis. [employer] Other XR pelvis 1-2V X R/XR pelvis 1-2V [employer] Other XR pelvis 1-2V No fracture or dislocation. [employer] Other XR pelvis 1-2V Mild degenerative changes are noted in the joint space of the hips. [employer] Other XR pelvis 1-2V Impression dictated by: Emery Lobo M.D.08/25/2021 2:54 PM [employer] Other XR pelvis 1-2V Transcribed By: PWS 08/25/21 [facility] [employer] Other XR pelvis 1-2V Dictated By: Emery Lobo II, MD 08/25/21 [facility] [employer] Other XR pelvis 1-2V 08/25/21 [facility] 2 [employer] Other Vital Signs Date Time Vital Sign Value Performing Clinician Facility 05-21-2025 11:08-0400 Body height 165.1 cm Shantel Stevne MD Work Phone: [facility] 05-21-2025 11:08-0400 Body mass index (BMI) [Ratio] 44.7 kg/m2 Shantel Steven MD Work Phone: [facility] 05-21-2025 11:08-0400 Body weight 122.07 kg Shantel Steven MD Work Phone: [facility] 05-21-2025 11:08-0400 Diastolic blood pressure 93 mm[Hg] Shantel Steven MD Work Phone: [facility] 05-21-2025 11:08-0400 Heart rate 70 /min Shantel Steven MD Work Phone: [facility] 05-21-2025 11:08-0400 Respiratory rate 14 /min Shantel Steven MD Work Phone: [facility] 05-21-2025 11:08-0400 SaO2% (BldA) [Mass fraction] 95 % Shantel Steven MD Work Phone: [facility] 05-21-2025 11:08-0400 Systolic blood pressure 180 mm[Hg] Shantel Steven MD Work Phone: [facility] 04-21-2025 14:20-0400 Body height 165.1 cm Shantel Steven MD Work Phone: [facility] 04-21-2025 14:20-0400 Body mass index (BMI) [Ratio] 42.4 kg/m2 Shantel Steven MD Work Phone: [facility] 04-21-2025 14:20-0400 Body weight 115.66 kg Shantel Steven MD Work Phone: [facility] 04-21-2025 14:20-0400 Diastolic blood pressure 80 mm[Hg] Shantel Steven MD Work Phone: [facility] 04-21-2025 14:20-0400 Heart rate 63 /min Shantel Steven MD Work Phone: [facility] 04-21-2025 14:20-0400 Systolic blood pressure 165 mm[Hg] Shantel Steven MD Work Phone: [facility] 04-16-2025 10:20-0400 Body height 165.1 cm Shantel Steven MD Work Phone: [facility] 04-16-2025 10:20-0400 Body mass index (BMI) [Ratio] 42.4 kg/m2 Shantel Steven MD Work Phone: [facility] 04-16-2025 10:20-0400 Body weight 115.66 kg Shantel Steven MD Work Phone: [facility] 04-16-2025 10:20-0400 Diastolic blood pressure 77 mm[Hg] Shantel Steven MD Work Phone: [facility] 04-16-2025 10:20-0400 Heart rate 63 /min Shantel Steven MD Work Phone: [facility] 04-16-2025 10:20-0400 Respiratory rate 12 /min Shantel Steven MD Work Phone: [facility] 04-16-2025 10:20-0400 SaO2% (BldA) [Mass fraction] 96 % Shantel Steven MD Work Phone: [facility] 04-16-2025 10:20-0400 Systolic blood pressure 137 mm[Hg] Shantel Steven MD Work Phone: [facility] 03-24-2025 13:57-0400 Body height 165.1 cm Shantel Steven MD Work Phone: [facility] 03-24-2025 13:57-0400 Body mass index (BMI) [Ratio] 42.3 kg/m2 Shantel Steven MD Work Phone: [facility] 03-24-2025 13:57-0400 Body weight 115.21 kg Shantel Steven MD Work Phone: [facility] 03-24-2025 13:57-0400 Diastolic blood pressure 76 mm[Hg] Shantel Steven MD Work Phone: [facility] 03-24-2025 13:57-0400 Heart rate 56 /min Shantel Steven MD Work Phone: [facility] 03-24-2025 13:57-0400 Systolic blood pressure 179 mm[Hg] Shantel Steven MD Work Phone: [facility] 03-12-2025 19:10-0400 Diastolic blood pressure 69 mm[Hg] Shantel Steven MD Work Phone: [facility] 03-12-2025 19:10-0400 Heart rate 57 /min Shantel Steven MD Work Phone: [facility] 03-12-2025 19:10-0400 Respiratory rate 18 /min Shantel Steven MD Work Phone: [facility] 03-12-2025 19:10-0400 SaO2% (BldA) [Mass fraction] 99 % Shantel Steven MD Work Phone: [facility] 03-12-2025 19:10-0400 Systolic blood pressure 164 mm[Hg] Shantel Steven MD Work Phone: [facility] 03-12-2025 13:45-0400 Body height 165.1 cm Shantel Steven MD Work Phone: [facility] 03-12-2025 13:45-0400 Body weight 114.7 kg Shantel Steven MD Work Phone: [facility] 03-12-2025 13:44-0400 Body temperature 97.6 [degF] Shantel Steven MD Work Phone: [facility] 03-10-2025 11:05-0400 Body height 165.1 cm [facility] 03-10-2025 11:05-0400 Body mass index (BMI) [Ratio] 41.1 kg/m2 [facility] 03-10-2025 11:05-0400 Body weight 112.1 kg [facility] 03-10-2025 11:05-0400 Diastolic blood pressure 70 mm[Hg] [facility] 03-10-2025 11:05-0400 Systolic blood pressure 145 mm[Hg] [facility] 02-19-2025 08:58-0400 Body height 165.1 cm [facility] 02-19-2025 08:58-0400 Body mass index (BMI) [Ratio] 41.1 kg/m2 [facility] 02-19-2025 08:58-0400 Body temperature 97.3 [degF] [facility] 02-19-2025 08:58-0400 Body weight 112.09 kg [facility] 02-19-2025 08:58-0400 Diastolic blood pressure 58 mm[Hg] [facility] 02-19-2025 08:58-0400 Heart rate 68 /min [facility] 02-19-2025 08:58-0400 Respiratory rate 18 /min [facility] 02-19-2025 08:58-0400 SaO2% (BldA) [Mass fraction] 96 % [facility] 02-19-2025 08:58-0400 Systolic blood pressure 147 mm[Hg] [facility] 02-09-2025 14:03-0400 Body height 165.1 cm [facility] 02-09-2025 14:03-0400 Body mass index (BMI) [Ratio] 42.5 kg/m2 [facility] 02-09-2025 14:03-0400 Body weight 116.11 kg [facility] 02-09-2025 14:03-0400 Diastolic blood pressure 78 mm[Hg] [facility] 02-09-2025 14:03-0400 Heart rate 79 /min [facility] 02-09-2025 14:03-0400 Respiratory rate 12 /min [facility] 02-09-2025 14:03-0400 Systolic blood pressure 185 mm[Hg] [facility] 01-14-2025 10:00-0500 Body height 165.1 cm Shantel Steven MD Work Phone: [facility] 01-14-2025 10:00-0500 Body mass index (BMI) [Ratio] 44.3 kg/m2 Shantel Steven MD Work Phone: [facility] 01-14-2025 10:00-0500 Body weight 120.88 kg Shantel Steven MD Work Phone: [facility] 01-14-2025 10:00-0500 Diastolic blood pressure 80 mm[Hg] Shantel Steven MD Work Phone: [facility] 01-14-2025 10:00-0500 Heart rate 66 /min Shantel Steven MD Work Phone: [facility] 01-14-2025 10:00-0500 SaO2% (BldA) [Mass fraction] 93 % Shantel Steven MD Work Phone: [facility] 01-14-2025 10:00-0500 Systolic blood pressure 176 mm[Hg] Shantel Steven MD Work Phone: [facility] 01-06-2025 15:22-0500 Body height 165.1 cm Shantel Steven MD [facility] [facility] 01-06-2025 15:22-0500 Body mass index (BMI) [Ratio] 44.7 kg/m2 Shantel Steven MD Work Phone: [facility] 01-06-2025 15:22-0500 Body weight 122.01 kg Shantel Steven MD Work Phone: [facility] 01-06-2025 15:22-0500 Diastolic blood pressure 83 mm[Hg] Shantel Steven MD Work Phone: [facility] 01-06-2025 15:22-0500 Heart rate 66 /min Shantel Steven MD Work Phone: [facility] 01-06-2025 15:22-0500 Systolic blood pressure 155 mm[Hg] Shantel Steven MD Work Phone: [facility] 12-26-2024 12:58-0500 Body height 165.1 cm Jorge Luis Tupa DO Work Phone: [facility] 12-26-2024 12:58-0500 Body mass index (BMI) [Ratio] 43.6 kg/m2 Jorge Luis Tupa DO Work Phone: [facility] 12-26-2024 12:58-0500 Body weight 118.84 kg Jorge Luis Tupa DO Work Phone: [facility] 12-26-2024 12:58-0500 Diastolic blood pressure 79 mm[Hg] Jorge Luis Tupa DO Work Phone: [facility] 12-26-2024 12:58-0500 Heart rate 92 /min Jorge Luis Tupa DO Work Phone: [facility] 12-26-2024 12:58-0500 SaO2% (BldA) [Mass fraction] 97 % Jorge Luis Tupa DO Work Phone: [facility] 12-26-2024 12:58-0500 Systolic blood pressure 175 mm[Hg] Jorge Luis Tupa DO Work Phone: [facility] 12-09-2024 13:33-0500 Body height 165.1 cm Jorge Luis Tupa DO Work Phone: [facility] 12-09-2024 13:33-0500 Body mass index (BMI) [Ratio] 43.4 kg/m2 Jorge Luis Tupa DO Work Phone: [facility] 12-09-2024 13:33-0500 Body weight 118.55 kg Jorge Luis Tupa DO Work Phone: [facility] 12-09-2024 13:33-0500 Diastolic blood pressure 83 mm[Hg] Jorge Luis Tupa DO Work Phone: [facility] 12-09-2024 13:33-0500 Heart rate 81 /min Jorge Luis Tupa DO Work Phone: [facility] 12-09-2024 13:33-0500 Respiratory rate 14 /min Jorge Luis Tupa DO Work Phone: [facility] 12-09-2024 13:33-0500 Systolic blood pressure 156 mm[Hg] Jorge Luis Tupa DO Work Phone: [facility] 11-11-2024 13:46-0500 Body height 165.1 cm Jorge Luis Tupa DO Work Phone: [facility] 11-11-2024 13:46-0500 Body mass index (BMI) [Ratio] 41.1 kg/m2 Jorge Luis Tupa DO Work Phone: [facility] 11-11-2024 13:46-0500 Body temperature 97.3 [degF] Jorge Luis Tupa DO Work Phone: [facility] 11-11-2024 13:46-0500 Body weight 112.03 kg Jorge Luis Tupa DO Work Phone: [facility] 11-11-2024 13:46-0500 Diastolic blood pressure 84 mm[Hg] Jorge Luis Tupa DO Work Phone: [facility] 11-11-2024 13:46-0500 Heart rate 95 /min Jorge Luis Tupa DO Work Phone: [facility] 11-11-2024 13:46-0500 Respiratory rate 16 /min Jorge Luis Tupa DO Work Phone: [facility] 11-11-2024 13:46-0500 SaO2% (BldA) [Mass fraction] 96 % Jorge Luis Tupa DO Work Phone: [facility] 11-11-2024 13:46-0500 Systolic blood pressure 145 mm[Hg] Jorge Luis Tupa DO Work Phone: [facility] 11-03-2024 11:43-0500 Body height 165.1 cm Jorge Luis Tupa DO Work Phone: [facility] 11-03-2024 11:43-0500 Body mass index (BMI) [Ratio] 41.1 kg/m2 Jorge Luis Tupa DO Work Phone: [facility] 11-03-2024 11:43-0500 Body weight 112.03 kg Jorge Luis Tupa DO Work Phone: [facility] 11-03-2024 11:43-0500 Diastolic blood pressure 70 mm[Hg] Jorge Luis Tupa DO Work Phone: [facility] 11-03-2024 11:43-0500 Heart rate 78 /min Jorge Luis Tupa DO Work Phone: [facility] 11-03-2024 11:43-0500 SaO2% (BldA) [Mass fraction] 97 % Jorge Luis Tupa DO Work Phone: [facility] 11-03-2024 11:43-0500 Systolic blood pressure 138 mm[Hg] Jorge Luis Tupa DO Work Phone: [facility] 10-25-2024 07:49-0500 Diastolic blood pressure 73 mm[Hg] Jorge Luis Tupa DO Work Phone: [facility] 10-25-2024 07:49-0500 Heart rate 85 /min Jorge Luis Tupa DO Work Phone: [facility] 10-25-2024 07:49-0500 Respiratory rate 18 /min Jorge Luis Tupa DO Work Phone: [facility] 10-25-2024 07:49-0500 SaO2% (BldA) [Mass fraction] 98 % Jorge Luis Tupa DO Work Phone: [facility] 10-25-2024 07:49-0500 Systolic blood pressure 135 mm[Hg] Jorge Luis Tupa DO Work Phone: [facility] 10-25-2024 05:58-0500 Body height 165.1 cm Jorge Luis Tupa DO Work Phone: [facility] 10-25-2024 05:58-0500 Body temperature 98 [degF] Ojrge Luis Tupa DO Work Phone: [facility] 10-25-2024 05:58-0500 Body weight 122.92 kg Jorge Luis Tupa DO Work Phone: [facility] 10-22-2024 04:48-0500 Body height 165.1 cm Jorge Luis Tupa DO Work Phone: [facility] 10-22-2024 04:48-0500 Body temperature 98.5 [degF] Jorge Luis Tupa DO Work Phone: [facility] 10-22-2024 04:48-0500 Body weight 114.8 kg Jorge Luis Tupa DO Work Phone: [facility] 10-22-2024 04:48-0500 Diastolic blood pressure 68 mm[Hg] Jorge Luis Tupa DO Work Phone: [facility] 10-22-2024 04:48-0500 Heart rate 100 /min Jorge Luis Tupa DO Work Phone: [facility] 10-22-2024 04:48-0500 Respiratory rate 18 /min Jorge Luis Tupa DO Work Phone: [facility] 10-22-2024 04:48-0500 SaO2% (BldA) [Mass fraction] 97 % Jorge Luis Tupa DO Work Phone: [facility] 10-22-2024 04:48-0500 Systolic blood pressure 132 mm[Hg] Jorge Luis Tupa DO Work Phone: [facility] 10-20-2024 12:00-0500 Body temperature 97.4 [degF] Jorge Luis Tupa DO Work Phone: [facility] 10-20-2024 12:00-0500 Diastolic blood pressure 73 mm[Hg] Jorge Luis Tupa DO Work Phone: [facility] 10-20-2024 12:00-0500 Heart rate 98 /min Jorge Luis Tupa DO Work Phone: [facility] 10-20-2024 12:00-0500 Respiratory rate 20 /min Jorge Luis Tupa DO Work Phone: [facility] 10-20-2024 12:00-0500 SaO2% (BldA) [Mass fraction] 98 % Jorge Luis Tupa DO Work Phone: [facility] 10-20-2024 12:00-0500 Systolic blood pressure 116 mm[Hg] Jorge Luis Tupa DO Work Phone: [facility] 10-20-2024 05:57-0500 Body weight 110.9 kg Jorge Luis Tupa DO Work Phone: [facility] 10-17-2024 14:18-0500 Body height 165.1 cm Jorge Luis Tupa DO Work Phone: [facility] 10-01-2024 09:51-0500 Body height 165.1 cm Christel Chacon MD Work Phone: [facility] 10-01-2024 09:51-0500 Body mass index (BMI) [Ratio] 42.27 kg/m2 Christel Chacon MD Work Phone: [facility] 10-01-2024 09:51-0500 Body weight 115.21 kg Christel Chacon MD Work Phone: [facility] 10-01-2024 09:51-0500 Diastolic blood pressure 110 mm[Hg] Christel Chacon MD Work Phone: [facility] 10-01-2024 09:51-0500 Systolic blood pressure 138 mm[Hg] Christel Chacon MD Work Phone: [facility] 08-07-2024 10:04-0400 Body height 165.1 cm MD Shantel Steven Work Phone: [facility] 08-07-2024 10:04-0400 Body mass index (BMI) [Ratio] 43.1 kg/m2 MD Shantel Steven Work Phone: [facility] 08-07-2024 10:04-0400 Body weight 117.48 kg MD Shantel Steven Work Phone: [facility] 08-07-2024 10:04-0400 Diastolic blood pressure 69 mm[Hg] MD Shantel Steven Work Phone: [facility] 08-07-2024 10:04-0400 Heart rate 52 /min MD Shantel Steven Work Phone: [facility] 08-07-2024 10:04-0400 SaO2% (BldA) [Mass fraction] 93 % MD Shantel Steven Work Phone: [facility] 08-07-2024 10:04-0400 Systolic blood pressure 117 mm[Hg] MD Shantel Steven Work Phone: [facility] 07-22-2024 13:15-0400 Body height 165.1 cm Christel Chacon MD Work Phone: [facility] 07-22-2024 13:15-0400 Body mass index (BMI) [Ratio] 42.6 kg/m2 Christel Chacon MD Work Phone: [facility] 07-22-2024 13:15-0400 Body weight 116.12 kg Christel Chacon MD Work Phone: [facility] 07-22-2024 13:15-0400 Diastolic blood pressure 82 mm[Hg] Christel Chacon MD Work Phone: [facility] 07-22-2024 13:15-0400 Systolic blood pressure 130 mm[Hg] Christel Chacon MD Work Phone: [facility] 07-16-2024 10:20-0400 Body height 165.1 cm MD Shantel Steven Work Phone: [facility] 07-16-2024 10:20-0400 Body mass index (BMI) [Ratio] 43.1 kg/m2 MD Shantel Steven Work Phone: [facility] 07-16-2024 10:20-0400 Body weight 117.48 kg MD Shantel Steven Work Phone: [facility] 07-16-2024 10:20-0400 Diastolic blood pressure 80 mm[Hg] MD Shantel Steven Work Phone: [facility] 07-16-2024 10:20-0400 Heart rate 60 /min MD Shantel Steven Work Phone: [facility] 07-16-2024 10:20-0400 Systolic blood pressure 151 mm[Hg] MD Shantel Steven Work Phone: [facility] 07-10-2024 13:40-0400 Body height 165.1 cm Lizett Mariemor LEGAL INTERN Work Phone: [facility] 07-10-2024 13:40-0400 Body mass index (BMI) [Ratio] 42.43 kg/m2 Lizett Gillmor LEGAL INTERN Work Phone: [facility] 07-10-2024 13:40-0400 Body weight 115.67 kg Lizett Gillmor LEGAL INTERN Work Phone: [facility] 07-10-2024 13:40-0400 Diastolic blood pressure 86 mm[Hg] Lizett Gillmor LEGAL INTERN Work Phone: [facility] 07-10-2024 13:40-0400 Systolic blood pressure 132 mm[Hg] Lizett Gillmor LEGAL INTERN Work Phone: [facility] 07-07-2024 11:41-0400 Body height 165.1 cm MD Shantel Steven Work Phone: [facility] 07-07-2024 11:41-0400 Body mass index (BMI) [Ratio] 42.4 kg/m2 MD Shantel Steven Work Phone: [facility] 07-07-2024 11:41-0400 Body weight 115.66 kg MD Shantel Steven Work Phone: [facility] 07-07-2024 11:41-0400 Diastolic blood pressure 79 mm[Hg] MD Shantel Steven Work Phone: [facility] 07-07-2024 11:41-0400 Heart rate 66 /min MD Shantel Steven Work Phone: [facility] 07-07-2024 11:41-0400 Systolic blood pressure 132 mm[Hg] MD Shantel Steven Work Phone: [facility] 06-16-2024 13:08-0400 Body height 165.1 cm MD Shantel Steven Work Phone: [facility] 06-16-2024 13:08-0400 Body mass index (BMI) [Ratio] 41.9 kg/m2 MD Shantel Steven Work Phone: [facility] 06-16-2024 13:08-0400 Body weight 114.3 kg MD Shantel Steven Work Phone: [facility] 06-16-2024 13:08-0400 Diastolic blood pressure 73 mm[Hg] MD Shantel Steven Work Phone: [facility] 06-16-2024 13:08-0400 Heart rate 55 /min MD Shantel Steven Work Phone: [facility] 06-16-2024 13:08-0400 Systolic blood pressure 137 mm[Hg] MD Shantel Steven Work Phone: [facility] 06-05-2024 11:51-0400 Body height 165.1 cm MD Shantel Steven Work Phone: [facility] 06-05-2024 11:51-0400 Body mass index (BMI) [Ratio] 43.2 kg/m2 MD Shantel Steven Work Phone: [facility] 06-05-2024 11:51-0400 Body temperature 96.6 [degF] MD Shantel Steven Work Phone: [facility] 06-05-2024 11:51-0400 Body weight 117.7 kg MD Shantel Steven Work Phone: [facility] 06-05-2024 11:51-0400 Diastolic blood pressure 74 mm[Hg] MD Shantel Steven Work Phone: [facility] 06-05-2024 11:51-0400 Heart rate 63 /min MD Shantel Steven Work Phone: [facility] 06-05-2024 11:51-0400 Respiratory rate 18 /min MD Shantel Steven Work Phone: [facility] 06-05-2024 11:51-0400 SaO2% (BldA) [Mass fraction] 97 % MD Shantel Steven Work Phone: [facility] 06-05-2024 11:51-0400 Systolic blood pressure 138 mm[Hg] MD Shantel Steven Work Phone: [facility] 05-22-2024 09:18-0400 Heart rate 55 /min MD Shantel Steven Work Phone: [facility] 05-22-2024 09:09-0400 Body temperature 97.8 [degF] MD Shantel Steven Work Phone: [facility] 05-22-2024 09:09-0400 Diastolic blood pressure 64 mm[Hg] MD Shantel Steven Work Phone: [facility] 05-22-2024 09:09-0400 Respiratory rate 22 /min MD Shantel Steven Work Phone: [facility] 05-22-2024 09:09-0400 SaO2% (BldA) [Mass fraction] 94 % MD Shantel Steven Work Phone: [facility] 05-22-2024 09:09-0400 Systolic blood pressure 140 mm[Hg] MD Shantel Steven Work Phone: [facility] 05-22-2024 09:08-0400 Body height 165.1 cm MD Shantel Steven Work Phone: [facility] 05-22-2024 09:08-0400 Body weight 117.48 kg MD Shantel Steven Work Phone: [facility] 05-19-2024 14:16-0400 Body height 165.1 cm MD Shantel Steven Work Phone: [facility] 05-19-2024 14:16-0400 Body mass index (BMI) [Ratio] 43.1 kg/m2 MD Shantel Steven Work Phone: [facility] 05-19-2024 14:16-0400 Body weight 117.48 kg MD Shantel Steven Work Phone: [facility] 05-19-2024 14:16-0400 Diastolic blood pressure 72 mm[Hg] MD Shantel Steven Work Phone: [facility] 05-19-2024 14:16-0400 Heart rate 56 /min MD Shantel Steven Work Phone: [facility] 05-19-2024 14:16-0400 Systolic blood pressure 133 mm[Hg] MD Shantel Steven Work Phone: [facility] 05-07-2024 11:52-0400 Body height 165.1 cm MD Shantel Steven Work Phone: [facility] 05-07-2024 11:52-0400 Body mass index (BMI) [Ratio] 41.5 kg/m2 MD Shantel Steven Work Phone: [facility] 05-07-2024 11:52-0400 Body temperature 98.5 [degF] MD Shantel Steven Work Phone: [facility] 05-07-2024 11:52-0400 Body weight 113.39 kg MD Shantel Steven Work Phone: [facility] 05-07-2024 11:52-0400 Diastolic blood pressure 81 mm[Hg] MD Shantel Steven Work Phone: [facility] 05-07-2024 11:52-0400 Heart rate 91 /min MD Shantel Steven Work Phone: [facility] 05-07-2024 11:52-0400 Systolic blood pressure 141 mm[Hg] MD Shantel Steven Work Phone: [facility] 04-29-2024 12:54-0400 Body height 165.1 cm MD Shantel Steven Work Phone: [facility] 04-29-2024 12:54-0400 Body mass index (BMI) [Ratio] 41.5 kg/m2 MD Shantel Steven Work Phone: [facility] 04-29-2024 12:54-0400 Body weight 113.39 kg MD Shantel Steven Work Phone: [facility] 04-29-2024 12:54-0400 Diastolic blood pressure 58 mm[Hg] MD Shantel Steven Work Phone: [facility] 04-29-2024 12:54-0400 Heart rate 54 /min MD Shantel Steven Work Phone: [facility] 04-29-2024 12:54-0400 Systolic blood pressure 90 mm[Hg] MD Shantel Steven Work Phone: [facility] 04-03-2024 11:29-0400 Body height 165.1 cm MD Shantel Steven Work Phone: [facility] 04-03-2024 11:29-0400 Body mass index (BMI) [Ratio] 43.7 kg/m2 MD Shantel Steven Work Phone: [facility] 04-03-2024 11:29-0400 Body weight 119.29 kg MD Shatnel Steven Work Phone: [facility] 04-03-2024 11:29-0400 Diastolic blood pressure 71 mm[Hg] MD Shantel Steven Work Phone: [facility] 04-03-2024 11:29-0400 Heart rate 56 /min MD Shantel Steven Work Phone: [facility] 04-03-2024 11:29-0400 Systolic blood pressure 116 mm[Hg] MD Shantel Steven Work Phone: [facility] 03-25-2024 15:15-0400 Body height 165.1 cm MD Shantel Steven Work Phone: [facility] 03-25-2024 15:15-0400 Body mass index (BMI) [Ratio] 43.9 kg/m2 MD Shantel Steven Work Phone: [facility] 03-25-2024 15:15-0400 Body weight 119.74 kg MD Shantel Steven Work Phone: [facility] 03-25-2024 15:15-0400 Diastolic blood pressure 87 mm[Hg] MD Shantel Steven Work Phone: [facility] 03-25-2024 15:15-0400 Heart rate 66 /min MD Shantel Steven Work Phone: [facility] 03-25-2024 15:15-0400 Systolic blood pressure 125 mm[Hg] MD Shantel Steven Work Phone: [facility] 02-15-2024 14:18-0400 Body height 165.1 cm [facility] 02-15-2024 14:18-0400 Body mass index (BMI) [Ratio] 38.6 kg/m2 [facility] 02-15-2024 14:18-0400 Body weight 105.23 kg [facility] 02-15-2024 14:18-0400 Diastolic blood pressure 66 mm[Hg] [facility] 02-15-2024 14:18-0400 Heart rate 55 /min [facility] 02-15-2024 14:18-0400 Systolic blood pressure 114 mm[Hg] [facility] 01-18-2024 10:23-0500 Body height 165.1 cm [facility] 01-18-2024 10:23-0500 Body mass index (BMI) [Ratio] 43.2 kg/m2 [facility] 01-18-2024 10:23-0500 Body weight 117.93 kg [facility] 01-18-2024 10:23-0500 Diastolic blood pressure 70 mm[Hg] [facility] 01-18-2024 10:23-0500 Heart rate 98 /min [facility] 01-18-2024 10:23-0500 SaO2% (BldA) [Mass fraction] 65 % [facility] 01-18-2024 10:23-0500 Systolic blood pressure 110 mm[Hg] [facility] 10-23-2023 16:00-0500 Body height 165.1 cm Jaleesa [email or web address] Other [employer] [facility] [employer] Other 10-23-2023 16:00-0500 Body mass index (BMI) [Ratio] 44.63 kg/m2 Jaleesa [employer] Other [employer] Other 10-23-2023 16:00-0500 Body temperature 96.8 [degF] Jaleesa [employer] Other [employer] [facility] [employer] Other 10-23-2023 16:00-0500 Body weight 121.66 kg Jaleesa [employer] Other [employer] Other 10-23-2023 16:00-0500 Diastolic blood pressure 60 mm[Hg] Jaleesa [employer] Other [employer] Other 10-23-2023 16:00-0500 Respiratory rate 18 /min Jaleesa Vanessa Other [employer] Other 10-23-2023 16:00-0500 SaO2% (BldA) [Mass fraction] 99 % Jaleesa Vanessa Other [employer] Other 10-23-2023 16:00-0500 Systolic blood pressure 124 mm[Hg] Jaleesa Vanessa Other [employer] Other 10-18-2023 13:45-0500 Body height 165.1 cm Shantel Steven Other [employer] Other 10-18-2023 13:45-0500 Body mass index (BMI) [Ratio] 44.86 kg/m2 Shantel Steven Other [employer] Other 10-18-2023 13:45-0500 Body temperature 97.3 [degF] Shantel Steven Other [employer] Other 10-18-2023 13:45-0500 Body weight 122.29 kg Shantel Steven Other [employer] Other 10-18-2023 13:45-0500 Diastolic blood pressure 84 mm[Hg] Shantel Steven Other [employer] Other 10-18-2023 13:45-0500 SaO2% (BldA) [Mass fraction] 97 % Shantel Steven Other [employer] Other 10-18-2023 13:45-0500 Systolic blood pressure 132 mm[Hg] Shantel Steven Other [employer] Other 09-04-2023 14:00-0400 Body height 165.1 cm Shantel Steven Other [employer] Other 09-04-2023 14:00-0400 Body mass index (BMI) [Ratio] 43.06 kg/m2 Shantel Steven Other [employer] Other 09-04-2023 14:00-0400 Body weight 117.39 kg Shantel Steven Other [employer] Other 09-04-2023 14:00-0400 Diastolic blood pressure 69 mm[Hg] Shantel Steven Other [employer] Other 09-04-2023 14:00-0400 Systolic blood pressure 127 mm[Hg] Shantel Steven Other [employer] Other 07-17-2023 10:00-0400 Body height 165.1 cm Shantel Steven Other [employer] Other 07-17-2023 10:00-0400 Body mass index (BMI) [Ratio] 43.03 kg/m2 Shantel Steven Other [employer] Other 07-17-2023 10:00-0400 Body weight 117.3 kg Shantel Steven Other [employer] Other 07-17-2023 10:00-0400 Diastolic blood pressure 76 mm[Hg] Shantel Steven Other [employer] Other 07-17-2023 10:00-0400 Systolic blood pressure 164 mm[Hg] Shantel Steven Other [employer] Other 04-30-2023 14:30-0400 Body height 165.1 cm Shantel Steven Other [employer] Other 04-30-2023 14:30-0400 Body mass index (BMI) [Ratio] 43.43 kg/m2 Shantel Steven Other [employer] Other 04-30-2023 14:30-0400 Body weight 118.39 kg Shantel Steven Other [employer] Other 04-30-2023 14:30-0400 Diastolic blood pressure 75 mm[Hg] Shantel Steven Other [employer] Other 04-30-2023 14:30-0400 Systolic blood pressure 135 mm[Hg] Shantel Steven Other [employer] Other 03-09-2023 12:15-0400 Body height 165.1 cm Shantel Steven Other [employer] Other 03-09-2023 12:15-0400 Body mass index (BMI) [Ratio] 43.59 kg/m2 Shantel Steven Other [employer] Other 03-09-2023 12:15-0400 Body weight 118.84 kg Shantel Steven Other [employer] Other 03-09-2023 12:15-0400 Diastolic blood pressure 82 mm[Hg] Shantel Steven Other [employer] Other 03-09-2023 12:15-0400 SaO2% (BldA) [Mass fraction] 97 % Shantel Steven Other [employer] Other 03-09-2023 12:15-0400 Systolic blood pressure 130 mm[Hg] Shantel Steven Other [employer] Other 02-20-2023 10:00-0400 Body height 165.1 cm Shantel Steven Other [employer] Other 02-20-2023 10:00-0400 Body mass index (BMI) [Ratio] 41.93 kg/m2 Shantel Steven Other [employer] Other 02-20-2023 10:00-0400 Body weight 114.31 kg Shantel Steven Other [employer] Other 02-20-2023 10:00-0400 Diastolic blood pressure 84 mm[Hg] Shantel Steven Other [employer] Other 02-20-2023 10:00-0400 Systolic blood pressure 132 mm[Hg] Shantel Steven Other [employer] Other 08-04-2022 13:33-0400 Blood Pressure Location Bin N[facility] [place] 08-04-2022 13:33-0400 Diastolic blood pressure 88 mm[Hg] [facility] [place] 08-04-2022 13:33-0400 Heart rate 76 /min Bin N[facility] [place] 08-04-2022 13:33-0400 Respiratory rate 16 /min Bin N[facility] [place] 08-04-2022 13:33-0400 Systolic blood pressure 130 mm[Hg] Bin N[facility] [place] 08-25-2021 14:30-0400 Body height 165.1 cm Akbar Cui II Other [employer] Other 08-25-2021 14:30-0400 Body mass index (BMI) [Ratio] 43.26 kg/m2 Akbar Cui II Other [facility] [employer] Other 08-25-2021 14:30-0400 Body weight 117.94 kg Akbar Cui II Other [employer] Other Encounters Encounter Date Encounter Type Care Provider Facility Start: 05-21-2025 End: 05-21-2025 ambulatory Shantel Steven MD Work Phone: [facility] Work Phone: Start: 05-21-2025 End: 05-21-2025 Patient encounter procedure Shantel Steven MD -[facility] Work Phone: Start: 05-13-2025 Non-patient / Non-visit Wandy Bowen CMA -[facility] Work Phone: Start: 05-11-2025 Non-patient / Non-visit Cheng Ross [facility] Work Phone: Start: 04-22-2025 End: 04-22-2025 ambulatory [facility] Start: 04-21-2025 End: 04-21-2025 ambulatory Shantel Steven MD Work Phone: [facility] Work Phone: Start: 04-21-2025 End: 04-21-2025 Patient encounter procedure Cheng Ross [facility] Work Phone: Start: 04-21-2025 End: 04-21-2025 Shantel Steven MD Work Phone: [facility] Work Phone: Start: 04-16-2025 End: 04-16-2025 ambulatory Shantel Steven MD Work Phone: [facility] Work Phone: Start: 04-16-2025 End: 04-16-2025 Patient encounter procedure Shantel Steven MD -[facility] Work Phone: Start: 04-16-2025 End: 04-16-2025 Shantel Steven MD Work Phone: [facility] Work Phone: Start: 03-24-2025 End: 03-24-2025 ambulatory Shantel Steven MD Work Phone: [facility] Work Phone: Start: 03-24-2025 End: 03-24-2025 Patient encounter procedure Shantel Steven MD -[facility] Work Phone: Start: 03-24-2025 End: 03-24-2025 Shantel Steven MD Work Phone: [facility] Work Phone: Start: 03-13-2025 Non-patient / Non-visit Wandy Bowen CMA -[facility] Work Phone: Start: 03-13-2025 Shantle Cardona Work Phone: [facility] Work Phone: Start: 03-12-2025 End: 03-12-2025 Shantel Steven MD Work Phone: [facility] Work Phone: Start: 03-12-2025 End: 03-12-2025 Emergency department patient visit Shantel Steven MD Work Phone: [facility] Work Phone: Start: 03-10-2025 End: 03-10-2025 ambulatory [facility] Work Phone: Start: 03-10-2025 End: 03-10-2025 Patient encounter procedure [facility] Work Phone: Start: 03-10-2025 End: 03-10-2025 Shantel Steven MD Work Phone: [facility] [place] [facility] [place] [facility] Work Phone: Start: 03-02-2025 End: 03-02-2025 ambulatory [facility] Start: 03-02-2025 Non-patient / Non-visit [facility] Work Phone: Start: 03-02-2025 Shantel Cardona Work Phone: [facility] Work Phone: Start: 02-19-2025 End: 02-19-2025 ambulatory [facility] Work Phone: Start: 02-19-2025 End: 02-19-2025 Patient encounter procedure [facility] Work Phone: Start: 02-19-2025 End: 02-19-2025 Shantel Steven MD Work Phone: [facility] Work Phone: Start: 02-09-2025 End: 02-09-2025 ambulatory [facility] Work Phone: Start: 02-09-2025 End: 02-09-2025 Patient encounter procedure [facility] Work Phone: Start: 02-09-2025 End: 02-09-2025 Shantel Steven MD Work Phone: [facility] Work Phone: Start: 01-28-2025 End: 01-28-2025 ambulatory [facility] Start: 01-28-2025 Non-patient / Non-visit [facility] Work Phone: Start: 01-28-2025 Shantel Cardona Work Phone: [facility] Work Phone: Start: 01-27-2025 Non-patient / Non-visit [facility] Work Phone: Start: 01-27-2025 Shantel Cardona Work Phone: [facility] Work Phone: Start: 01-26-2025 Non-patient / Non-visit [facility] Work Phone: Start: 01-26-2025 Shantel Cardona Work Phone: [facility] Work Phone: Start: 01-25-2025 Non-patient / Non-visit [facility] Work Phone: Start: 01-25-2025 Shantel Cardona Work Phone: [facility] Work Phone: Start: 01-21-2025 End: 01-21-2025 ambulatory Shantel Steven MD Work Phone: [facility] Work Phone: Start: 01-21-2025 End: 01-21-2025 Patient encounter procedure Shantel Steven MD Work Phone: [facility] Work Phone: Start: 01-21-2025 End: 01-21-2025 Shantel Steven MD Work Phone: [facility] Work Phone: Start: 01-14-2025 End: 01-14-2025 ambulatory Shantel Steven MD Work Phone: [facility] Work Phone: Start: 01-14-2025 End: 01-14-2025 Patient encounter procedure Shantel Steven MD Work Phone: [facility] Work Phone: Start: 01-14-2025 End: 01-14-2025 Shantel Steven MD Work Phone: [facility] Work Phone: Start: 01-07-2025 End: 01-07-2025 Telephone encounter Christel Chacon MD Work Phone: [facility] Comment on above: referral to Dr Estrada baer Start: 01-06-2025 End: 01-06-2025 Patient encounter procedure Shantel Steven MD Work Phone: [facility] Work Phone: Start: 01-06-2025 End: 01-06-2025 Shantel Steven MD Work Phone: [facility] Work Phone: Start: 01-06-2025 End: 01-06-2025 Telephone encounter Christel Chacon MD Work Phone: [facility] Comment on above: sleep study appt Start: 12-26-2024 End: 12-26-2024 ambulatory Jorge Luis Zavala DO Work Phone: [facility] Work Phone: Start: 12-26-2024 End: 12-26-2024 Patient encounter procedure Jorge Luis Zavala DO Work Phone: [facility] Work Phone: Start: 12-26-2024 End: 12-26-2024 Shantel Steven MD Work Phone: [facility] Work Phone: Start: 12-18-2024 End: 12-18-2024 ambulatory FRANCHESCA PERAZA Facility:[facility] Start: 12-18-2024 End: 12-18-2024 Patient encounter procedure FRANCHESCA PERAZA [facility] Start: 12-09-2024 End: 12-09-2024 Patient encounter procedure Jorge Luis Tupa DO Work Phone: [facility] Work Phone: Start: 12-08-2024 Non-patient / Non-visit Oni k Tupa DO Work Phone: [facility] Work Phone: Start: 12-08-2024 End: 12-08-2024 ambulatory FRANCHESCA PERAZA Facility:[facility] Start: 12-08-2024 End: 12-08-2024 Patient encounter procedure FRANCHESCA CUELLARRY [facility] Start: 12-04-2024 Non-patient / Non-visit Oni k Tupa DO Work Phone: [facility] Work Phone: Start: 12-04-2024 Non-patient / Non-visit Oni k Tupa DO Work Phone: [facility] Work Phone: Start: 12-02-2024 End: 12-02-2024 ambulatory [facility] Start: 11-13-2024 End: 11-13-2024 ambulatory FRANCHESCA PERAZA Facility:[facility] Start: 11-13-2024 End: 11-13-2024 Patient encounter procedure FRANCHESCA Jenny PERAZA [facility] Start: 11-11-2024 End: 11-11-2024 Patient encounter procedure Jorge Luis Tupa DO Work Phone: [facility] Work Phone: Start: 11-10-2024 Non-patient / Non-visit Oni k Tupa DO Work Phone: [facility] Work Phone: Start: 11-06-2024 ambulatory FRANCEHSCA PERAZA Facili ty:[facility] Start: 11-04-2024 End: 11-04-2024 ambulatory FRANCHESCA PERAZA Facility:[facility] Start: 11-04-2024 End: 11-04-2024 Patient encounter procedure FRANCHESCA PERAZA [facility] Start: 11-03-2024 End: 11-03-2024 Patient encounter procedure Jorge Luis Zavala DO Work Phone: [facility] Work Phone: Start: 10-31-2024 ambulatory [facility] Start: 10-25-2024 End: 10-25-2024 Emergency department patient visit Jorge Luis Camargopa DO Work Phone: [facility] Work Phone: Start: 10-24-2024 Non-patient / Non-visit Oni k Tupa DO Work Phone: [facility] Work Phone: Start: 10-22-2024 End: 10-22-2024 Emergency department patient visit Jorge Luis Camargopa DO Work Phone: [facility] Work Phone: Start: 10-21-2024 Non-patient / Non-visit Oni k Tupa DO Work Phone: [facility] Work Phone: Start: 10-17-2024 Non-patient / Non-visit Oni k Tupa DO Work Phone: [facility] [place] [facility] Work Phone: Start: 10-17-2024 Non-patient / Non-visit Oni Zavala DO Work Phone: [facility] Work Phone: Start: 10-16-2024 Non-patient / Non-visit Oni Zavala DO Work Phone: [facility] [place] [facility] Work Phone: Start: 10-16-2024 End: 10-20-2024 Evaluation and management of inpatient Jorge Luis Zavala DO Work Phone: [facility] [place] [facility] Work Phone: Start: 10-08-2024 End: 10-08-2024 ambulatory [facility] Start: 10-01-2024 End: 10-01-2024 Bamdaniel flowsheet Christel Chacon MD Work Phone: [facility] Start: 10-01-2024 End: 10-01-2024 Bamdaniel flowsmagdalene Chacon MD Work Phone: [facility] Start: 10-01-2024 End: 10-01-2024 Office outpatient visit 15 minutes Christel Chacon MD Work Phone: [facility] Comment on above: JED (obstructive sle ep apnea) (Primary Dx); Hypothyroidism (acquired) (CMS/HCC) Start: 10-01-2024 End: 10-01-2024 ambulatory CHRISTEL CHACON Not Available Start: 09-29-2024 Non-patient / Non-visit Oni Zavala DO Work Phone[facility] Work Phone: Start: 09-26-2024 End: 09-30-2024 Telephone encounter Christel Chacon MD Work Phone: [facility] Start: 09-03-2024 ambulatory [facility] Start: 08-20-2024 End: 08-20-2024 ambulatory [facility] Start: 08-07-2024 End: 08-07-2024 ambulatory MD Shantel Steven Work Phone: [facility] Work Phone: Start: 08-07-2024 End: 08-07-2024 Patient encounter procedure MD Shantel Steven Work Phone: [facility] Work Phone: Start: 07-30-2024 Non-patient / Non-visit MD Alessia Steven Work Phone: [facility] Work Phone: Start: 07-25-2024 Non-patient / Non-visit MD Alessia Steven Work Phone: [facility] Work Phone: Start: 07-24-2024 Non-patient / Non-visit MD Alessia Steven Work Phone: [facility] Work Phone: Start: 07-22-2024 End: 07-22-2024 Bamdaniel Chacon MD Work Phone: [facility] Start: 07-22-2024 End: 07-22-2024 Juliette Chacon MD Work Phone: [facility] Start: 07-22-2024 End: 07-22-2024 Office outpatient new 45 minutes Christel Chacon MD Work Phone: [facility] Comment on above: JED (obstructive sle ep apnea) (Primary Dx); LPRD (laryngopharyngeal reflux disease); Throat tightness Start: 07-22-2024 End: 07-22-2024 ambulatory CHRISTEL CHACON Not Available Start: 07-17-2024 End: 07-17-2024 Patient encounter procedure MD Shantel Steven Work Phone: [facility] Work Phone: Start: 07-17-2024 End: 07-17-2024 ambulatory MD Shantel Steven Work Phone: [facility] Work Phone: Start: 07-17-2024 End: 07-17-2024 Departed Referred MD Shantel Steven Work Phone: [facility] [place] Work Phone: Start: 07-17-2024 End: 07-17-2024 MD Shantel Steven Work Phone: [facility] Work Phone: Start: 07-16-2024 End: 07-16-2024 ambulatory MD Shantel Steven Work Phone: [facility] Work Phone: Start: 07-16-2024 End: 07-16-2024 Patient encounter procedure MD Shantel Steven Work Phone: [facility] Work Phone: Start: 07-16-2024 End: 07-16-2024 MD Shantel Steven Work Phone: [facility] Work Phone: Start: 07-15-2024 End: 07-15-2024 Non-patient / Non-visit MD Shantel Steven Work Phone: [facility] Work Phone: Start: 07-15-2024 Non-patient / Non-visit MD Alessia Steven Work Phone: [facility] Work Phone: Start: 07-15-2024 MD Shantel painting Work Phone: [facility] Work Phone: Start: 07-14-2024 Non-patient / Non-visit MD Alessia Steven Work Phone: [facility] Work Phone: Start: 07-14-2024 MD Shantel painting Work Phone: [facility] Work Phone: Start: 07-10-2024 End: 07-10-2024 Bamboo flowsheet Lizett Mariemor LEGAL INTERN [facility] Start: 07-10-2024 End: 07-10-2024 Bamboo flowsheet Lizett Mariemor LEGAL INTERN Work Phone: [facility] Start: 07-10-2024 End: 07-10-2024 Office outpatient visit 25 minutes Lizett Salazarjohanr LEGAL INTERN Work Phone: [facility] Comment on above: Essential tremor (Pr imary Dx); Diabetic polyneuropathy associated with type 2 diabetes mellitus (CMS/HCC); Balance disorder; Sensory ataxia; Debility; Weakness; Paresthesias Start: 07-10-2024 End: 07-10-2024 ambulatory LIZETT SALAZARJOHANR Not Available Start: 07-07-2024 End: 07-07-2024 ambulatory MD Shantel Steven Work Phone: [facility] Work Phone: Start: 07-07-2024 End: 07-07-2024 Patient encounter procedure MD Shantel Steven Work Phone: [facility] Work Phone: Start: 07-07-2024 End: 07-07-2024 MD Shantel Steven Work Phone: [facility] Work Phone: Start: 06-25-2024 ambulatory MD Shantel gray Work Phone: [facility] Work Phone: Start: 06-25-2024 Non-patient / Non-visit MD Alessia Steven Work Phone: [facility] Work Phone: Start: 06-25-2024 MD Shantel painting Work Phone: [facility] Work Phone: Start: 06-24-2024 Non-patient / Non-visit MD Alessia Steven Work Phone: [facility] Work Phone: Start: 06-24-2024 MD Shantel painting Work Phone: [facility] Work Phone: Start: 06-18-2024 End: 06-18-2024 ambulatory [facility] Start: 06-16-2024 End: 06-16-2024 ambulatory MD Shantel Steven Work Phone: [facility] Work Phone: Start: 06-16-2024 End: 06-16-2024 Patient encounter procedure MD Shantel Steven Work Phone: [facility] Work Phone: Start: 06-16-2024 End: 06-16-2024 MD Shantle Steven Work Phone: [facility] Work Phone: Start: 06-10-2024 Non-patient / Non-visit MD Alessia Steven Work Phone: [facility] Work Phone: Start: 06-10-2024 MD Shantel painting Work Phone: [facility] Work Phone: Start: 06-09-2024 Non-patient / Non-visit MD Alessia Steven Work Phone: [facility] Work Phone: Start: 06-09-2024 MD Shantel painting Work Phone: [facility] Work Phone: Start: 06-05-2024 End: 06-05-2024 ambulatory MD Shantel Steven Work Phone: [facility] Work Phone: Start: 06-05-2024 End: 06-05-2024 Patient encounter procedure MD Shantel Steven Work Phone: [facility] Work Phone: Start: 06-05-2024 End: 06-05-2024 MD Shantel Steven Work Phone: [facility] Work Phone: Start: 06-01-2024 Non-patient / Non-visit MD Alessia Steven Work Phone: [facility] Work Phone: Start: 06-01-2024 MD Shantel painting Work Phone: [facility] Work Phone: Start: 05-26-2024 Non-patient / Non-visit MD Alessia Steven Work Phone: [facility] Work Phone: Start: 05-26-2024 MD Shantel painting Work Phone: [facility] Work Phone: Start: 05-22-2024 End: 05-22-2024 Emergency department patient visit MD Shantel Steven Work Phone: [facility] Work Phone: Start: 05-22-2024 End: 05-22-2024 MD Shantel Steven Work Phone: [facility] Work Phone: Start: 05-20-2024 Non-patient / Non-visit MD Alessia Steven Work Phone: [facility] Work Phone: Start: 05-20-2024 MD Shantel painting Work Phone: [facility] Work Phone: Start: 05-19-2024 End: 05-19-2024 ambulatory MD Shantel Steven Work Phone: [facility] Work Phone: Start: 05-19-2024 End: 05-19-2024 Patient encounter procedure MD Shantel Steven Work Phone: [facility] Work Phone: Start: 05-19-2024 End: 05-19-2024 MD Shantel Steven Work Phone: [facility] Work Phone: Start: 05-07-2024 End: 05-07-2024 ambulatory MD Shantel Steven Work Phone: [facility] Work Phone: Start: 05-07-2024 End: 05-07-2024 Patient encounter procedure MD Shantel Steven Work Phone: [facility] Work Phone: Start: 05-07-2024 End: 05-07-2024 MD Shantel Steven Work Phone: [facility] Work Phone: Start: 05-06-2024 Non-patient / Non-visit MD Alessia Steven Work Phone: [facility] Work Phone: Start: 05-06-2024 MD Shantel painting Work Phone: [facility] Work Phone: Start: 05-05-2024 Non-patient / Non-visit MD Alessia Steven Work Phone: [facility] Work Phone: Start: 05-05-2024 MD Shantel painting Work Phone: [facility] Work Phone: Start: 05-04-2024 End: 05-06-2024 Non-patient / Non-visit MD Shantel Steven Work Phone: [facility] Work Phone: Start: 05-04-2024 End: 05-06-2024 MD Shantel Steven Work Phone: [facility] Work Phone: Start: 05-04-2024 Non-patient / Non-visit MD Alessia Steven Work Phone: [facility] Work Phone: Start: 05-04-2024 MD Shantel painting Work Phone: [facility] Work Phone: Start: 05-02-2024 Non-patient / Non-visit MD Alessia Steven Work Phone: [facility] Work Phone: Start: 05-02-2024 MD Shantel painting Work Phone: [facility] Work Phone: Start: 05-01-2024 Non-patient / Non-visit MD Alessia Steven Work Phone: [facility] Work Phone: Start: 05-01-2024 MD Shantel painting Work Phone: [facility] Work Phone: Start: 04-30-2024 Non-patient / Non-visit MD Alessia Steven Work Phone: [facility] Work Phone: Start: 04-30-2024 MD Shantel painting Work Phone: [facility] Work Phone: Start: 04-30-2024 Non-patient / Non-visit MD Alessia Steven Work Phone: [facility] Work Phone: Start: 04-30-2024 MD Shantel painting Work Phone: [facility] Work Phone: Start: 04-29-2024 End: 04-29-2024 Patient encounter procedure MD Shantel Steven Work Phone: [facility] Work Phone: Start: 04-29-2024 End: 04-29-2024 MD Shantel Steven Work Phone: [facility] Work Phone: Start: 04-03-2024 End: 04-03-2024 ambulatory MD Shantel Steven Work Phone: [facility] Work Phone: Start: 04-03-2024 End: 04-03-2024 Patient encounter procedure MD Shantel Steven Work Phone: [facility] Work Phone: Start: 04-03-2024 End: 04-03-2024 MD Shantel Steven Work Phone: [facility] Work Phone: Start: 04-01-2024 Non-patient / Non-visit MD Alessia Steven Work Phone: [facility] Work Phone: Start: 04-01-2024 MD Shantel painting Work Phone: [facility] Work Phone: Start: 03-31-2024 Non-patient / Non-visit MD Alessia Steven Work Phone: [facility] Work Phone: Start: 03-31-2024 MD Shantel painting Work Phone: [facility] Work Phone: Start: 03-28-2024 Non-patient / Non-visit MD Alessia Steven Work Phone: [facility] Work Phone: Start: 03-28-2024 MD Shantel painting Work Phone: [facility] Work Phone: Start: 03-27-2024 Non-patient / Non-visit MD Alessia Steven Work Phone: [facility] Work Phone: Start: 03-27-2024 MD Shantel painting Work Phone: [facility] Work Phone: Start: 03-26-2024 Non-patient / Non-visit MD Alessia Steven Work Phone: [facility] Work Phone: Start: 03-26-2024 MD Shantel painting Work Phone: [facility] Work Phone: Start: 03-25-2024 End: 03-25-2024 Patient encounter procedure MD Shantel Steven Work Phone: [facility] Work Phone: Start: 03-25-2024 End: 03-25-2024 MD Shantel Steven Work Phone: [facility] Work Phone: Start: 03-13-2024 End: 03-13-2024 ambulatory MD Shantel Steven Work Phone: [facility] Work Phone: Start: 03-13-2024 End: 03-13-2024 Patient encounter procedure MD Shantel Steven Work Phone: [facility] [address] Work Phone: Start: 02-19-2024 ambulatory FRANCHESCAJAMES PERAZA Facility :[facility] Start: 02-15-2024 End: 02-15-2024 ambulatory [facility] Work Phone: Start: 02-15-2024 End: 02-15-2024 Patient encounter procedure [facility] Work Phone: Start: 01-29-2024 Non-patient / Non-visit [facility] Work Phone: Start: 01-24-2024 Non-patient / Non-visit [facility] Work Phone: Start: 01-22-2024 Non-patient / Non-visit [facility] Work Phone: Start: 01-18-2024 End: 01-18-2024 Patient encounter procedure [facility] Work Phone: Start: 01-15-2024 Non-patient / Non-visit [facility] Work Phone: Start: 01-04-2024 Non-patient / Non-visit [facility] Work Phone: Start: 12-18-2023 End: 12-18-2023 ambulatory Shantel Steven Other [employer] Other Start: 12-18-2023 Telephone encounter Shantel Tenisha [facility] Start: 11-19-2023 End: 11-19-2023 ambulatory Shantel Tenisha Other [employer] Other Start: 11-19-2023 Telephone encounter Shantel Tenisha [facility] Start: 10-23-2023 End: 10-23-2023 ambulatory Azghassan Vanessa Other [employer] Other Start: 10-23-2023 Office outpatient ne w 30 minutes Aziz Nhunghous [facility] Start: 10-22-2023 End: 10-22-2023 ambulatory Shantel Steven Other [employer] Other Start: 10-22-2023 Telephone encounter Shantel Tenisha [facility] Start: 10-18-2023 End: 10-18-2023 ambulatory Shantel Tenisha Other [employer] Other Start: 10-18-2023 Office outpatient vi sit 15 minutes Shantel Tenisha [facility] Start: 09-07-2023 End: 09-07-2023 ambulatory Shantel Tenisha Other [employer] Other Start: 09-07-2023 Telephone encounter Shantel Tenisha [facility] Start: 09-04-2023 End: 09-04-2023 ambulatory Shantel Tenisha Other [employer] Other Start: 09-04-2023 Office outpatient vi sit 25 minutes Shantel Tenisha [facility] Start: 08-23-2023 End: 08-23-2023 ambulatory Shantel Tenisha Other [employer] Other Start: 08-23-2023 Telephone encounter Shantel Tenisha [facility] Start: 07-23-2023 End: 07-23-2023 ambulatory Shantel Steven Other [employer] Other Start: 07-23-2023 Telephone encounter Shantel Tenisha [facility] Start: 07-17-2023 End: 07-17-2023 ambulatory Shantel Tenisha Other [employer] Other Start: 07-17-2023 Office outpatient vi sit 25 minutes Shantel Tenisha [facility] Start: 05-30-2023 End: 05-30-2023 ambulatory Shantel Tenisha Other [employer] Other Start: 05-30-2023 Telephone encounter Shantel Tenisha [facility] Start: 05-22-2023 End: 05-22-2023 ambulatory Shantel Tenisha Other [employer] Other Start: 05-22-2023 Telephone encounter Shantel Tenisha [facility] Start: 05-16-2023 End: 05-16-2023 ambulatory Shantel Tenisha Other [employer] Other Start: 05-16-2023 Telephone encounter Shantel Tenisha [facility] Start: 05-07-2023 End: 05-07-2023 ambulatory Shantel Tenisha Other [employer] Other Start: 05-07-2023 Telephone encounter Shantel Tenisha [facility] Start: 04-30-2023 End: 04-30-2023 ambulatory Shantel Tenisha Other [employer] Other Start: 04-30-2023 Office outpatient vi sit 25 minutes Shantel Tenisha [facility] Start: 04-25-2023 End: 04-25-2023 ambulatory Shantel Tenisha Other [employer] Other Start: 04-25-2023 Telephone encounter Shantel Steven [facility] Start: 04-12-2023 End: 04-12-2023 ambulatory Shantel Tenisha Other [employer] Other Start: 04-12-2023 Telephone encounter Shantel Steven [facility] Start: 03-09-2023 End: 03-09-2023 ambulatory Shantel Steven Other [employer] Other Start: 03-09-2023 Office outpatient vi sit 15 minutes Shantel Steven [facility] Start: 03-07-2023 End: 03-07-2023 ambulatory Shantel Steven Other [employer] Other Start: 03-07-2023 Telephone encounter Shantel Steven [facility] Start: 03-06-2023 End: 03-06-[address] SHANTEL STEVEN Facility:[facility]1 Start: 03-05-2023 End: 03-05-2023 ambulatory Shantel Steven Other [employer] Other Start: 03-05-2023 Telephone encounter Shantel Steven [facility] Start: 02-26-2023 End: 02-26-2023 ambulatory Shantel Steven Other [employer] Other Start: 02-26-2023 Telephone encounter Shantel Steven [facility] Start: 02-24-2023 End: 02-24-[address] SHANTEL STEVEN Facility:[facility] Start: 02-23-2023 End: 02-23-2023 ambulatory Shantel Steven Other [facility] Other Start: 02-23-2023 Telephone encounter Shantel Steven [facility] Start: 02-20-2023 End: 02-20-2023 ambulatory Shantel Steven Other [employer] Other Start: 02-20-2023 Transitional care luz cabral srvc 14 day discharge Shantel Steven [facility] Start: 02-16-2023 End: 02-16-2023 ambulatory Shantel Steven Other [employer] Other Start: 02-16-2023 Telephone encounter Shantel Steven [facility] Start: 02-13-2023 End: 02-14-[address] SHANTEL STEVEN Facility:[facility]1 Start: 02-02-2023 End: 02-02-2023 ambulatory Shantel Steven Other [employer] Other Start: 02-02-2023 Telephone encounter Shantel Steven [facility] Start: 01-16-2023 End: 01-17-[address] DOCTOR CARMONA Facility:[facility]1 Start: 01-05-2023 End: 01-05-2023 ambulatory BIN ROJAS Facility:[facility]1 Start: 01-01-2023 End: 01-02-2023 ambulatory ANALISA BRYANT Facility:[facility]1 Start: 11-29-2022 End: 11-29-2022 ambulatory Shantel Steven Other [facility] Other Start: 11-29-2022 Telephone encounter Shantel Steven [facility] Start: 11-27-2022 End: 11-27-2022 ambulatory Shantel Steven Other [employer] Other Start: 11-27-2022 Telephone encounter Shantel Steven [facility] Start: 11-24-2022 End: 11-24-2022 ambulatory Shantel Steven Other [employer] Other Start: 11-24-2022 Telephone encounter Shantel Steven [facility] Start: 11-06-2022 ambulatory YAMEL MCCRACKEN Facility :[facility]1 Start: 09-15-2022 End: 09-16-[address] SHANTEL STEVEN Facility:[facility] Start: 08-04-2022 End: 08-04-2022 Patient encounter procedure Bin SORENSON General Surgery Lauren/Adenike Becker Start: 05-02-2022 End: 05-02-[address] SHANTEL STEVEN Facility:[facility]1 Start: 08-25-2021 Office outpatient ne w 45 minutes Akbar Cui II [facility] Start: 08-09-2017 End: 08-12-2017 Ambulatory PROVIDER UNKNOWN Facility:[facility] Procedures Date Procedure Procedure Detail Performing Clinician Start: 03-12-2025 Plain chest X-ray Shantel Steven MD Work Phone: Start: 10-25-2024 Viral nucleic acid assay Jorge Luis Zavala DO Work Phone: Start: 10-25-2024 Plain chest X-ray Jorge Luis Zavala DO Work Phone: Start: 10-22-2024 Urine culture Jorge Luis Zavala DO Work Phone: Start: 10-16-2024 Plain chest X-ray Jorge Luis Zavala DO Work Phone: Start: 07-17-2024 Urine culture MD Shantel Steven Work Phone: Start: 05-04-2024 Bacteria identified in Urine by Culture MD Shantel Steven Work Phone: Start: 05-04-2024 Blood Culture 1 MD Shnatel Steven Work Phone: Start: 05-04-2024 MD Shantel [...] NILL Colonoscopy Bin NILL Decompression laminectomy Mi sherita NILL Esophagogastroduodenoscopy M ichmonse NILL Excision of iliac lymph nodes Bin SORENSON Facetectomy of vertebra [place] SORENSON Foraminotomy Bin POPL History of operative procedure on shoulder Bin SORENSON History of sigmoid colectomy Bin SORENSON Total abdominal hyst erectomy with bilateral salpingo-oophorectomy Bin POP Plan of Treatment Date Care Activity Detail Author Start: 03-24-2025 Patient referral [facility] Work Phone: Start: 12-10-2024 Patient referral [facility] Work Phone: Start: 10-20-2024 [facility] Start: 10-16-[address] [facility] Start: 10-16-2024 Hospital admission [facility] Start: 10-16-2024 Referral to second shift supervisor [facility] Start: 10-16-2024 Drainage of Bladder with Drainage Device, Via Natural or Artificial Opening Drainage of Bladder with Drainage Device, Via Natural or Artificial Opening [facility] Start: 10-16-2024 Performance of Cardi ac Pacing, Continuous Performance of Cardiac Pacing, Continuous [facility] Start: 10-01-2024 End: 10-01-2024 Patient encounter procedure [facility] Comment on above: Arrived Start: 09-30-2024 End: 09-30-2024 Patient encounter procedure 09/30/2024 1:00 PM EST Office Visit [facility] [address] [place] [phone] Wanda Patel, DO [address] [place] [address] [facility] [address] [facility] Start: 09-04-2024 End: 09-04-2024 Patient encounter procedure 09/04/2024 1:20 PM EDT Office Visit [facility] [address] [place] [address] Lizett Jacinto NP [address] [place], [place] [facility] Start: 07-22-2024 End: 07-22-2024 Patient encounter procedure 07/22/2024 1:10 PM EDT Office Visit [facility] [address] [place] [phone] Christel Chacon MD [address] [place] [address] Arrived [facility] Comment on above: Arrived Start: 07-17-2024 Bacteria identified in Urine by Culture [facility] Start: 07-17-2024 [facility] Start: 07-15-2024 End: 07-15-2024 Patient encounter procedure 07/15/2024 1:10 PM EDT Office Visit [facility] [address] [facility] [address] [place] [address] Christel Chacon MD [address] [facility] [address] [place] [address] [facility] Start: 2024 Influenza vaccination Influenza Vacc ine (#1) [facility] Start: 07-10-2024 End: 07-10-2024 Patient encounter procedure 07/10/2024 1:40 PM EDT [facility] [address] [place] [phone] Lizett Jacinto NP [address] [place], [place] [facility] Comment on above: Arrived Start: 06-25-2024 Patient referral [facility] Work Phone: Start: 06-16-2024 Patient referral [facility] Work Phone: Start: 05-07-2024 Patient referral [facility] Work Phone: Start: 05-04-2024 Blood Culture 1 Blood Culture 1 [facility] Start: 02-15-2024 Patient referral [facility] Work Phone: Comprehensive metabo lic 1999 panel - Serum or Plasma [facility] Comprehensive metabo lic 1999 panel - Serum or Plasma [facility] CT Abdomen and Pelvi s WO contrast [facility] Microalbumin [Mass/volume] in Urine [facility] Patient Education [facility] Work Phone: Patient referral [facility] Work Phone: Renal function 1999 panel - Serum or Plasma [facility] Renal function 1999 panel - Serum or Plasma [facility] Renal function 1999 panel - Serum or Plasma [facility] US Axilla [facility] Immunizations Immunization Date Immunization Notes Care Provider Fa cility 01-18-2024 Pneumococcal Conjugate Vaccine, [address] [facility] 09-04-2023 influenza, high dose seasonal, preservative-free Shantel Steven Other [employer] [facility] Other 09-04-2023 influenza virus vaccine, unspecified formulation [facility] 02-04-2021 COVID-19 mRNA, Comirnaty (Pfizer) [facility] 01-21-2021 COVID-19 mRNA, Comirnaty (Pfizer) [facility] 10-09-2018 influenza virus vaccine, split virus (incl. purified surface antigen) Shantel Steven Other [facility] [employer] Other 10-09-2018 influenza virus vaccine, unspecified formulation [facility] NEGATED: Highlighted row has not occurred!10-17-2024 influenza, high dose seasonal, preservative-free Jorge Luis Zavala DO Work Phone: [facility] NEGATED: Highlighted row has not occurred!08-21-2019 influenza virus vaccine, split virus (incl. purified surface antigen) Shantel Steven Other [employer] Other Payers Date Payer Category Payer Medicare [id number] 2024 Self-pay [id number] 2023 Medicare HUMANA MEDICARE ADVANTAGE HU[employer]NA MEDICARE [id number] 2023-Present [address] [place] [id number] 2023 Medicare (Managed Care) HU[employer]NA EDICARE ADVANTAGE [id number] 1959 Medicare [id number] 1959 Self-pay [id number] 1945 Unknown [id number] 2.16.840.1.977902.3.579. 2.593 1946 Unknown [id number] 2.16840.1.926624.3.579. 2.593 1946 Unknown [id number] 2.16.840.1.042169.3.579. 2.593 1946 Unknown [id number] 2.16.840.1.503951.3.579. 2.593 1946 Unknown [id number] 2.16.840.1.957840.3.579. 2.593 1946 Unknown [id number] 2.16.840.1.791614.3.579. 2.593 1946 Unknown [id number] 2.16.840.1.829984.3.579. 2.593 1946 Unknown [id number] 2.16.840.1.783096.3.579. 2.593 1946 Unknown [id number] 2.16.840.1.001770.3.579. 2.593 1946 Unknown [id number] 2.16.840.1.855677.3.579. 2.1259 1946 Unknown [id number] 2.16.840.1.568712.3.579. 2.1259 1946 Unknown [id number] 2.16.840.1.431331.3.579. 2.1259 1946 Unknown [id number] 2.16.840.1.759222.3.579. 2.727 1946 Unknown [id number] 2.16.840.1.946722.3.579. 2.727 1946 Unknown [id number] 2.16.840.1.167540.3.579. 2.727 1946 Unknown [id number] 2.16.840.1.100126.3.579. 2.727 1946 Unknown [id number] 2.16.840.1.788825.3.579. 2.727 Unknown Unknown [id number] 2.16.840.1.727826.3.579. 2.531 Unknown [id number] 2.16.840.1.771224.3.579. 2.531 Unknown [id number] 2.16.840.1.618293.3.579. 2.531 Unknown [id number] 2.16.840.1.781910.3.579. 2.531 Unknown [id number] 2.16.840.1.370044.3.579. 2.531 Unknown [id number] 2.16.840.1.619528.3.579. 2.531 Social History Date Type Detail Facility Start: 07-22-2024 End: 10-01-2024 Sex Assigned At [facility] [employer] Other Start: 08-04-2022 End: 10-25-2024 Tobacco smoking status Ex-smoker (finding) [facility] [place] Tobacco smoking status Never [facility] Start: 1945 Sex Assigned At Female [facility] History of tobacco use Current smoker [facility] History of tobacco use Cigarette Smoker N [facility] Start: 07-03-2024 Tobacco use and exposure Smokeless tobacco non-user [facility] Start: 07-22-2024 End: 10-01-2024 Alcoholic beverage intake Lifetime non-drinker (finding) [facility] Start: 07-22-2024 End: 10-01-2024 History of Social function [facility] Start: 07-08-2024 Alcohol Comment caffeine: 1-2 cups per day [facility] Start: 1945 Sex assigned at Not on file N [facility] Start: 12-26-2024 End: 04-21-2025 Sex Female (finding) [facility] Start: 03-12-2025 Tobacco smoking stat [facility] Never smoked tobacco (finding) [facility] Medical Equipment Procedure Code Equipment Code Equipment Origin al Text Equipment Identifier Dates Blood Sugar Diagnostic (True Metrix Glucose Test Strip) strip Start: 03-31-2024 Pen Needle, Diab etic (Comfort Ez Pen [place]) 33 gauge x 5/32 needle Start: 03-25-2024 Blood Sugar Diagnostic (True Metrix Glucose Test Strip) strip Start: 03-31-2024 End: 03-31-2024 Blood Sugar Diagnostic (True Metrix Glucose Test Strip) strip Start: 03-31-2024 Pen Needle, Diab etic (Comfort Ez Pen [place]) 33 gauge x 5/32 needle Start: 03-25-2024 Blood Sugar Diagnostic (True Metrix Glucose Test Strip) strip Start: 03-31-2024 End: 03-31-2024 Blood Sugar Diagnostic (True Metrix Glucose Test Strip) strip Start: 03-31-2024 Pen Needle, Diab etic (Comfort Ez Pen [place]) 33 gauge x 5/32 needle Start: 03-25-2024 Blood Sugar Diagnostic (True Metrix Glucose Test Strip) strip Start: 03-31-2024 End: 03-31-2024 Blood Sugar Diagnostic (True Metrix Glucose Test Strip) strip Start: 03-31-2024 Pen Needle, Diab etic (Comfort Ez Pen [place]) 33 gauge x 5/32 needle Start: 03-25-2024 Blood Sugar Diagnostic (True Metrix Glucose Test Strip) strip Start: 03-31-2024 End: 03-31-2024 Blood Sugar Diagnostic (True Metrix Glucose Test Strip) strip Start: 03-31-2024 Pen Needle, Diab etic (Comfort Ez Pen [place]) 33 gauge x 5/32 needle Start: 03-25-2024 Blood Sugar Diagnostic (True Metrix Glucose Test Strip) strip Start: 03-31-2024 End: 03-31-2024 Blood Sugar Diagnostic (True Metrix Glucose Test Strip) strip Start: 03-31-2024 Pen Needle, Diab etic (Comfort Ez Pen [place]) 33 gauge x 5/32 needle Start: 03-25-2024 Blood Sugar Diagnostic (True Metrix Glucose Test Strip) strip Start: 03-31-2024 End: 03-31-2024 Blood Sugar Diagnostic (True Metrix Glucose Test Strip) strip Start: 03-31-2024 Pen Needle, Diab etic (Comfort Ez Pen [place]) 33 gauge x 5/32 needle Start: 03-25-2024 Blood Sugar Diagnostic (True Metrix Glucose Test Strip) strip Start: 03-31-2024 End: 03-31-2024 Blood Sugar Diagnostic (True Metrix Glucose Test Strip) strip Start: 03-31-2024 Pen Needle, Diab etic (Comfort Ez Pen [place]) 33 gauge x 5/32 needle Start: 03-25-2024 Blood Sugar Diagnostic (True Metrix Glucose Test Strip) strip Start: 03-31-2024 End: 03-31-2024 Blood Sugar Diagnostic (True Metrix Glucose Test Strip) strip Start: 03-31-2024 Pen Needle, Diab etic (Comfort Ez Pen [place]) 33 gauge x 5/32 needle Start: 03-25-2024 Blood Sugar Diagnostic (True Metrix Glucose Test Strip) strip Start: 03-31-2024 End: 03-31-2024 Pen Needle, Diab etic (Comfort Ez Pen [place]) 33 gauge x 5/32 needle Start: 03-25-2024 Blood Sugar Diagnostic (True Metrix Glucose Test Strip) strip Start: 03-31-2024 End: 10-16-2024 Blood Sugar Diagnostic (True Metrix Glucose Test Strip) strip Start: 03-31-2024 End: 03-31-2024 Pen Needle, Diab etic (Comfort Ez Pen [place]) 33 gauge x 5/32 needle Start: 03-25-2024 Blood Sugar Diagnostic (True Metrix Glucose Test Strip) strip Start: 03-31-2024 End: 10-16-2024 Blood Sugar Diagnostic (True Metrix Glucose Test Strip) strip Start: 03-31-2024 End: 03-31-2024 Pen Needle, Diab etic (Comfort Ez Pen [place]) 33 gauge x 5/32 needle Start: 03-25-2024 Blood Sugar Diagnostic (True Metrix Glucose Test Strip) strip Start: 03-31-2024 End: 10-16-2024 Blood Sugar Diagnostic (True Metrix Glucose Test Strip) strip Start: 03-31-2024 End: 03-31-2024 Pen Needle, Diab etic (Comfort Ez Pen [place]) 33 gauge x 5/32 needle Start: 03-25-2024 Blood Sugar Diagnostic (True Metrix Glucose Test Strip) strip Start: 03-31-2024 End: 10-16-2024 Blood Sugar Diagnostic (True Metrix Glucose Test Strip) strip Start: 03-31-2024 End: 03-31-2024 Pen Needle, Diab etic (Comfort Ez Pen [place]) 33 gauge x 5/32 needle Start: 03-25-2024 Blood Sugar Diagnostic (True Metrix Glucose Test Strip) strip Start: 03-31-2024 End: 10-16-2024 Blood Sugar Diagnostic (True Metrix Glucose Test Strip) strip Start: 03-31-2024 End: 03-31-2024 Pen Needle, Diab etic (Comfort Ez Pen [place]) 33 gauge x 5/32 needle Start: 03-25-2024 Blood Sugar Diagnostic (True Metrix Glucose Test Strip) strip Start: 03-31-2024 End: 10-16-2024 Blood Sugar Diagnostic (True Metrix Glucose Test Strip) strip Start: 03-31-2024 End: 03-31-2024 Pen Needle, Diab etic (Comfort Ez Pen [place]) 33 gauge x 5/32 needle Start: 03-25-2024 Blood Sugar Diagnostic (True Metrix Glucose Test Strip) strip Start: 03-31-2024 End: 10-16-2024 Blood Sugar Diagnostic (True Metrix Glucose Test Strip) strip Start: 03-31-2024 End: 03-31-2024 Pen Needle, Diab etic (Comfort Ez Pen [place]) 33 gauge x 5/32 needle Start: 03-25-2024 Blood Sugar Diagnostic (True Metrix Glucose Test Strip) strip Start: 03-31-2024 End: 10-16-2024 Blood Sugar Diagnostic (True Metrix Glucose Test Strip) strip Start: 03-31-2024 End: 03-31-2024 Goals Date Patient Goal Desired Activity /State Functional Status Date Assessment Result Facility 11-04-2024 Functional Status N/A [facility] 10-20-2024 Functional status Patient at Baseline [facility] Work Phone: 08-04-2022 Functional Status N/A [facility] Mental Status Date Assessment Result Facility 10-20-2024 Cognitive function Cognitive Sta tus Patient at Baseline [facility] Work Phone: Clinical Notes 08-25-2021 to 04-22-2025 Note Date & Type Note Facility 04-22-2025 Note [facility] Subjective Joe Call is a 79 y.o. year old female patient being seen for a follow up per Dr. Luan's request. Patient would like to discuss watchman. 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/HCC) Lumbar degenerative disc disease Lumbar spondylosis Lymph edema Macular degeneration Memory changes Osteoarthritis Secondary hyperparathyroidism Stress incontinence of urine Thrush of mouth and esophagus (CMS/HCC) Urinary incontinence UTI (urinary tract infection) Yeast cystitis CARMELO (acute kidney injury) Tremor Acquired hammer toe of right foot Ataxia Balance disorder CHF (congestive heart failure) (CMS/HCC) Dehydration Diabetic foot ([facility]) Diabetic peripheral neuropathy associated with type 2 diabetes mellitus ([facility]/HCC) Disability of walking Essential tremor LPRD (laryngopharyngeal reflux disease) Mass of right axilla Paresthesia Throat tightness Type 2 diabetes mellitus with hyperglycemia, with long-term current use of insulin ([facility]/HCC) Venous insufficiency (chronic) (peripheral) Debility Arthrodesis status BMI 40.0-44.9, adult ([facility]) Epigastric pain Urine retention Family History Problem Relation Name Age of Onset Heart disease Mother Heart attack Father Coronary artery disease Other Diabetes Other Polycystic kidney disease Other Social History Tobacco Use Smoking status: Former Types: Cigarettes Smokeless tobacco: Never Substance Use Topics Alcohol use: Not Currently Drug use: Never HPI Joe is seen in follow up and to discuss the watchman procedure. She is a 79 yo woman. She has history of AF on xarelto. She has hypertension on treatment. She has mild carotid stenosis by Duplex in 2014. She has diabetes on insulin and morbid obesity. She underwent cardiac cath after abnormal stress test in 2016 and that did not show significant disease. She says she had prior cardiac catheterizations. She has history of LA in the past and underwent balloon angioplasty (many years ago, prior to the stent era). 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 In December 2022 she was admitted to the [facility] with decompensated diastolic heart failure, she was treated with diuretic therapy. In February 2023 she was admitted to [facility] with dehydration secondary to acute gastroenteritis. She also had acute kidney injury in that setting. She has history of breast cancer more than 25 years ago s/p mastectomy, chemo and radiation therapy. She has lymphedema in the left arm. In the past she saw a circulating process inspector for bleeding behind the eye . she [...] April 2024 she was admitted to the [facility] with increasing weakness and altered mental status. She also had acute renal insufficiency. She had UTI secondary to E. coli. She previously was admitted to the [facility] several times due to heart failure. She was readmitted in January 2025 to the [facility] with shortness of breath and treated with IV diuretics. She was evaluated in our clinic in February 2025 and was recommended to obtain an echocardiogram for follow-up on her pulmonary pressures. This was never done. Today she reports that she has been doing relatively well except that she started having some shortness of breath NYHA class II symptoms and mild lower extremity edema. She denies chest pain, dizziness or lightheadedness. Review of Systems Cardiovascular: Positive for leg swelling (feet). Respiratory: Positive for shortness (more content not included)... [facility] Discharge instructions Ambulatory OrdersReferral to Diabetes Management Time Frame: 03/24/25, Location: None [facility] Work Phone: 03-10-2025 Evaluation note Diagnosis Onset Date Resolution Diarrhea acute March 10 11:03am Dyspepsia acute March 10 11:03am GERD (gastroesophageal reflux disease) acute March 10, 2025 11:03am IBS (irritable bowel syndrome) acute March 10, 2025 11:03am Diarrhea acute March 24, 2025 1:51pm Longstanding persistent atrial fibrillation acute March 24 1:51pm Type 2 diabetes mellitus with hyperglycemia, with long-term current use of acute March 24, 2025 1 :51pm UTI (urinary tract infection) acute March 24, 2025 1 :51pm A-fib acute April 16, 2025 10:19am Class 3 severe obesity with body mass index (BMI) of 40.0 to 44.9 in adult acute April 16, 2025 10:19am Contact dermatitis acute April 162024 10:19am Type 2 diabetes mellitus with hyperglycemia, with long-term current use of acute April 16, 2025 10:19am GERD (gastroesophageal reflux disease) acute April 21, 2025 2:10pm IBS (irritable bowel syndrome) acute April 21, 2025 2:10pm [facility] Work Phone: 1(420) 946-675804-21-2025 NoteCardiovascular Medicine [place] [facility] SUBJECTIVE Patient is here today for follow-up after [facility] admission HPI 03/02/2025 Patient is here today with her for follow-up visit. She states that she feels very good. She denies any shortness of breath at rest or with exertion. She denies orthopnea or paroxysmal nocturnal dyspnea. She denies any chest discomfort at rest or with exertion. She denies dizziness or palpitations or legs edema. She has not been following her weight daily however she reports that she keeps losing weight and she reports that her blood pressure has been very good. Patient has history of sleep apnea but she does not wear CPAP secondary to claustrophobia. She does not have urinary catheter anymore but she urinates very well. She has been taking Lasix on daily basis. She reports that she is watching the salt in her diet. She drinks couple cans of diet soda a day. She watches her fluids intake. 01/28/2025 She presented yesterday to the [place] emergency room with worsening shortness of breath over the last 2 weeks associated with lower extremities edema and epigastric pain. According to the note chest x-ray showed left pleural effusion with pulmonary vascular congestion, BNP was elevated at 7089 with low potassium 2.7 and magnesium 1.2. Blood pressure was significantly elevated 189/80. She was given Lasix 40 mg IV x 1 and she was admitted to the hospital. She was started on Bumex 1 mg IV twice daily and she diuresed very well. Potassium was replaced and on discharge it was 3.8. Patient has chronic loose stool and she was started on Lomotil in the hospital. Her C. difficile was negative. She was started also on magnesium oxide 400 mg 3 times daily and potassium 20 mEq twice daily. She was discharged cardiac reagan on Cardizem CD 120 mg daily, propranolol 40 mg twice daily, Xarelto 20 mg daily, atorvastatin 20 mg daily Patient is here today for follow-up visit. She reports that she lost about 10 pounds while she was in the hospital. On the hospital discharge form she was not discharged on Lasix however the patient reports that she was taking Lasix every other day. Currently she does not have shortness of breath or chest pain or dizziness or palpitations. She reports that her legs edema are much better. She is going to see a second shift supervisor next week. Also she reports symptoms of GERD and she is going to have EGD soon 12/02/2024 Patient is here today for follow-up [...] postchemotherapy and radiation She was recently in [facility] 10/16/2024, she presented with fatigue, lightheadedness [...] along with hold her lisinopril due to (more content not included)...[facility] note* Diagnosis Onset Date Resolution Status Admit Date Acute on chronic diastolic C HF (congestive heart failure) acute February 09, 2025 1:58pm CKD (chronic kidney disease) , stage IV acute February 09, 2025 1:58pm Diarrhea acute February 09 1:58pm GERD (gastroesophageal reflu x disease) acute February 09, 2025 1:58pm Lumbar degenerative disc disease acu te February 09, 2025 1:58pm Type 2 diabetes mellitus wit h hyperglycemia, with long-term current use of acute February 09, 2025 1:58pm CKD (chronic kidney disease) stage 3, GFR 30-59 ml/min acute February 19, 2025 8:32am Hyperlipidemia acute February 8:32am Hypertensive chronic kidney disease with stage 1 through stage 4 chronic ki acute February 19, 2025 8:32am Hypokalemia acute February 19, 025 8:32am Secondary hyperparathyroidism acute February 19, 2025 8:32am Type 2 diabetes mellitus wit h diabetic chronic kidney disease acute February 19, 2025 8:32am Diarrhea acute March 10 11:03am Dyspepsia acute [...] tract infection) acute March 24, 2025 1:51pm [facility] Work Phone: 1(266) 893-160203-31-2025 Evaluation note* Diagnosis Onset Date Resolution Status Admit Date Acute on chronic diastolic C HF (congestive heart failure) acute February 09, 2025 1:58pm CKD (chronic kidney disease) , stage IV acute February 09, 2025 1:58pm Diarrhea acute February 09 1:58pm GERD (gastroesophageal reflu x disease) acute February 09, 2025 1:58pm Lumbar degenerative disc disease acu te February 09, 2025 1:58pm Type 2 diabetes mellitus wit h hyperglycemia, with long-term current use of acute February 09, 2025 1:58pm CKD (chronic kidney disease) stage 3, GFR 30-59 ml/min acute February 19, 2025 8:32am Hyperlipidemia acute February 8:32am Hypertensive chronic kidney disease with stage 1 through stage 4 chronic ki acute February 19, 2025 8:32am Hypokalemia acute February 19, 025 8:32am Secondary hyperparathyroidism acute February 19, 2025 8:32am Type 2 diabetes mellitus wit h diabetic chronic kidney disease acute February 19, 2025 8:32am Diarrhea acute March 10 11:03am Dyspepsia acute [...] 44.9 in adult acute April 16, 2025 10:19am Contact dermatitis acute April 162024 10:19am Type 2 diabetes mellitus wit h hyperglycemia, with long-term current use of acute April 16, 2025 10:19am GERD (gastroesophageal reflu x disease) acute April 21, 2025 2:10pm IBS (irritable bowel syndrome) acute April 21, 2025 2:10pm [facility] Work Phone: 1(883) 809-412603-19-2025 [facility] Patient is here today for follow-up after [facility] admission HPI 01/28/2025 She presented yesterday to the [place] emergency room with worsening shortness of breath over the last 2 weeks associated with lower extremities edema and epigastric pain. According to the note chest x-ray showed left pleural effusion with pulmonary vascular congestion, BNP was elevated at 7089 with low potassium 2.7 and magnesium 1.2. Blood pressure was significantly elevated 189/80. She was given Lasix 40 mg IV x 1 and she was admitted to the hospital. She was started on Bumex 1 mg IV twice daily and she diuresed very well. Potassium was replaced and on discharge it was 3.8. Patient has chronic loose stool and she was started on Lomotil in the hospital. Her C. difficile was negative. She was started also on magnesium oxide 400 mg 3 times daily and potassium 20 mEq twice daily. She was discharged cardiac reagan on Cardizem CD 120 mg daily, propranolol 40 mg twice daily, Xarelto 20 mg daily, atorvastatin 20 mg daily Patient is here today for follow-up visit. She reports that she lost about 10 pounds while she was in the hospital. On the hospital discharge form she was not discharged on Lasix however the patient reports that she was taking Lasix every other day. Currently she does not have shortness of breath or chest pain or dizziness or palpitations. She reports that her legs edema are much better. She is going to see a second shift supervisor next week. Also she reports symptoms of GERD and she is going to have EGD soon 12/02/2024 Patient is here today for follow-up [...] postchemotherapy and radiation She was recently in [facility] 10/16/2024, she presented with fatigue, lightheadedness [...] ago There is some confusion regarding her d (more content not included)...[facility] Telephone encounter Note* Telephone Encounter - Christel Chacon MD - 01/07/2025 12:08 PM EST prn [facility] [id number] Miscellaneous Notes* Telephone Encounter - Christel Chacon MD - 01/07/2025 12:08 PM EST prn * Telephone Encounter - Jeanne Chacon - 01/07/2025 11:26 AM EST Called pt/spoke with spouse/he said she does not want to schedule with Dr Hurd/if she changes hermind she will call us back. documented in this encounterNOSaint John's Health [id number] Telephone encounter Note* Telephone Encounter - Jeanne Chacon - 01/07/2025 11:26 AM EST Called pt/spoke with spouse/he said she does not want to schedule with Dr Hurd/if she changes hermind she will call us back. [id number] Evaluation note* Diagnosis Onset Date Resolution Status Admit Date Acute on chronic diastolic C HF (congestive heart failure) acute Febru 2024 3:21pm CKD (chronic kidney disease) , stage IV acute January 06, 025 3:21pm GERD (gastroesophageal reflu x disease) acute January 06 025 3:21pm Lumbar degenerative disc disease acu te January 06, 2025 3:21pm Type 2 diabetes mellitus wit h hyperglycemia, with long-term current use of acute January 06 3:21pm Acute on chronic diastolic C HF (congestive heart failure) acute January 14, 2025 10:00am C. difficile diarrhea acute Jan 10:00am GERD (gastroesophageal reflu x disease) acute January 14, 2025 10:00am Type 2 diabetes mellitus wit h hyperglycemia, with long-term current use of acute January 14, 2025 10:00am Acute on chronic diastolic C HF (congestive heart failure) acute February 09, 2025 1:58pm CKD (chronic kidney disease) , stage IV acute February 09, 2025 1:58pm Diarrhea acute February 09 1:58pm GERD (gastroesophageal reflu x disease) acute February 09, 2025 1:58pm Lumbar degenerative disc disease acu te February 09, 2025 1:58pm Type 2 diabetes mellitus wit h hyperglycemia, with long-term current use of acute February 09, 2025 1:58pm CKD (chronic kidney disease) stage 3, GFR 30-59 ml/min acute February 19, 2025 8:32am Hyperlipidemia acute February 8:32am Hypertensive chronic kidney disease with stage 1 through stage 4 chronic ki acute February 19, 2025 8:32am Hypokalemia acute February 19 8:32am Secondary hyperparathyroidism acute February 19, 2025 8:32am Type 2 diabetes mellitus wit h diabetic chronic kidney disease acute February 19, 2025 8:32am Diarrhea acute March 10 11:03am Dyspepsia acute March 10 11:03am GERD (gastroesophageal reflu x disease) acute March 10, 2025 11:03am IBS (irritable bowel syndrome) acute March 10, 2025 11:03am Type 2 diabetes mellitus wit h hyperglycemia, with long-term current use of acute March 24, 2025 1 :51pm [facility] Work Phone: 1(314) 568-816802-25-2025 Telephone encounter Note* Telephone Encounter - Jeanne Chacon - 01/06/2025 11:21 AM EST Left a message for pt to call Dr Chacon's office back to see if pt is planning on scheduling with Dr Hurd for sleep study. [facility] [id number] Miscellaneous Notes* Telephone Encounter - Jeanne Chacon - 01/06/2025 11:21 AM EST Left a message for pt to call Dr Chacon's office back to see if pt is planning on scheduling with Dr Hurd for sleep study. documented in this encounterSaint [facility]ius [id number] Evaluation note* Diagnosis Onset Date Resolution Status Admit Date Abdominal swelling, generalized acut e December 26, 2024 12:52pm Benign essential tremor acute F ebruary 2024 12:52pm Bloated abdomen acute December 26, 2024 12:52pm GERD (gastroesophageal reflu x disease) acute December 26 12:52pm Lumbar degenerative disc disease acu te December 26, 2024 12:52pm Seborrhea capitis in adult acute December 26, 2024 12:52pm Type 2 diabetes mellitus wit h diabetic chronic kidney disease acute December 26, 2024 12:52pm Acute on chronic diastolic C HF (congestive heart failure) acute Febru chele2024 3:21pm CKD (chronic kidney disease) , stage IV acute February 25th, 2 025 3:21pm GERD (gastroesophageal reflu x disease) acute January 06, 025 3:21pm Lumbar degenerative disc disease acu [...] use of acute January 14, 2025 10:00am Acute on chronic diastolic C HF (congestive heart failure) acute February 09, 2025 1:58pm CKD (chronic kidney disease) , stage IV acute February 09, 2025 1:58pm Diarrhea acute February 09 1:58pm GERD (gastroesophageal reflu x disease) acute February 09, 2025 1:58pm Lumbar degenerative disc disease acu te February 09, 2025 1:58pm Type 2 diabetes mellitus wit h hyperglycemia, with long-term current use of acute February 09, 2025 1:58pm CKD (chronic kidney disease) stage 3, GFR 30-59 ml/min acute February 19, 2025 8:32am Hyperlipidemia acute February 8:32am Hypertensive chronic kidney disease with stage 1 through stage 4 chronic ki acute February 19, 2025 8:32am Hypokalemia acute February 19 8:32am Secondary hyperparathyroidism acute February 19, 2025 8:32am Type 2 diabetes mellitus wit h diabetic chronic kidney disease acute February 19, 2025 8:32am Diarrhea acute March 10 11:03am GERD (gastroesophageal reflu x disease) acute March 10, 2025 11:03am [facility] Work Phone: 1(547) 597-846202-14-2025 Evaluation note* Diagnosis Onset Date Resolution Status Admit Date Abdominal swelling, generalized acut e December 26, 2024 12:52pm Benign essential tremor acute F ebruary 2024 12:52pm Bloated abdomen acute December 26, 2024 12:52pm GERD (gastroesophageal reflu x disease) acute December 26 12:52pm Lumbar degenerative disc disease acu te December 26, 2024 12:52pm Seborrhea capitis in adult acute December 26, 2024 12:52pm Type 2 diabetes mellitus wit h diabetic chronic kidney disease acute December 26, 2024 12:52pm Acute on chronic diastolic C HF (congestive heart failure) acute u 2024 3:21pm CKD (chronic kidney disease) , stage IV acute January 06, 2 025 3:21pm GERD (gastroesophageal reflu x disease) acute January 06, 2 025 3:21pm Lumbar degenerative disc disease acu te January 06, 2025 3:21pm Type 2 diabetes mellitus wit h hyperglycemia, with long-term current use of acute January 06, 2 025 3:21pm Acute on chronic diastolic C HF (congestive heart failure) acute January 14, 2025 10:00am C. difficile diarrhea acute Jan 10:00am GERD (gastroesophageal reflu x disease) acute January 14, 2025 10:00am Type 2 diabetes mellitus wit h hyperglycemia, with long-term current use of acute January 14, 2025 10:00am Acute on chronic diastolic C HF (congestive heart failure) acute February 09, 2025 1:58pm CKD (chronic kidney disease) , stage IV acute February 09, 2025 1:58pm Diarrhea acute February 09 1:58pm GERD (gastroesophageal reflu x disease) acute February 09, 2025 1:58pm Lumbar degenerative disc disease acu te February 09, 2025 1:58pm Type 2 diabetes mellitus wit h hyperglycemia, with long-term current use of acute February 09, 2025 1:58pm CKD (chronic kidney disease) stage 3, GFR 30-59 ml/min acute February 19, 2025 8:32am Hyperlipidemia acute February 8:32am Hypertensive chronic kidney disease with stage 1 through stage 4 chronic ki acute February 19, 2025 8:32am Hypokalemia acute February 19 025 8:32am Secondary hyperparathyroidism acute February 19, 2025 8:32am Type 2 diabetes mellitus wit h diabetic chronic kidney disease acute February 19, 2025 8:32am Diarrhea acute March 10 11:03am Dyspepsia acute March 10 11:03am GERD (gastroesophageal reflu x disease) acute March 10, 2025 11:03am IBS (irritable bowel syndrome) acute March 10, 2025 11:03am [facility] Work Phone: 1(397) 996-591801-28-2025 Evaluation note* Diagnosis Onset Date Resolution Status Admit Date Abdominal swelling, generalized acut e December 09, [...] use of acute January 14, 2025 10:00am Acute on chronic diastolic C HF (congestive heart failure) acute February 09, 2025 1:58pm CKD (chronic kidney disease) , stage IV acute February 09, 2025 1:58pm Diarrhea acute February 09 1:58pm GERD (gastroesophageal reflu x disease) acute February 09, 2025 1:58pm Lumbar degenerative disc disease acu te February 09, 2025 1:58pm Type 2 diabetes mellitus wit h hyperglycemia, with long-term current use of acute February 09, 2025 1:58pm CKD (chronic kidney disease) stage 3, GFR 30-59 ml/min acute February 19, 2025 8:32am Hyperlipidemia acute February 8:32am Hypertensive chronic kidney disease with stage 1 through stage 4 chronic ki acute February 19, 2025 8:32am Secondary hyperparathyroidism acute February 19, 2025 8:32am Type 2 diabetes mellitus wit h diabetic chronic kidney disease acute February 19, 2025 8:32am [facility] Work Phone: 1(760) 242-694801-21-2025 NoteCardiovascular Medicine [place] [facility] SUBJECTIVE Patient is here today for [...] postchemotherapy and radiation She was recently in [facility] 10/16/2024, she presented with fatigue, lightheadedness [...] few months. Patient here for follow up [facility]. Her diuretic was switched again back [...] Oz of fluid a day per the second shift supervisor. Her most recent discharge on 07/25/24 she [...] has noticed occasional horsen (more content not included)...[facility]* Diagnosis Onset Date Resolution Status Admit Date CKD (chronic kidney disease) stage 3, GFR [...] GERD (gastroesophageal reflu x disease) acute December 26 025 12:52pm Lumbar degenerative disc disease acu te December 26, 2024 12:52pm Seborrhea capitis in adult acute December 26, 2024 12:52pm Type 2 diabetes mellitus wit h diabetic chronic kidney disease acute December 26, 2024 12:52pm Acute on chronic diastolic C HF (congestive heart failure) acute 2024 3:21pm CKD (chronic kidney disease) , stage IV acute January 06 025 3:21pm GERD (gastroesophageal reflu x disease) acute January 06 025 3:21pm Lumbar degenerative disc disease acu te January 06, 2025 3:21pm Type 2 diabetes mellitus wit h hyperglycemia, with long-term current use of acute January 06 025 3:21pm Acute on chronic diastolic C HF (congestive heart failure) acute January 14, 2025 10:00am C. difficile diarrhea acute Jan 10:00am GERD (gastroesophageal reflu x disease) acute January 14, 2025 10:00am Type 2 diabetes mellitus wit h hyperglycemia, with long-term current use of acute January 14, 2025 10:00am Diarrhea acute February 09 1:58pm [facility] Work Phone: 1([phone]) 642-191312-24-2024 Hospital Discharge instructions Patient Education 11/04/2024 11:01:25 Acute Urinary Retention, Female Acute Urinary Retention, Female Acute urinary retention is a condition in which a person is unable to pass urine or can only pass alittle urine. This condition can happen suddenly and [...] Follow these instructions at home: Medicines Take saso-zlx-zizokyj and prescription medicines only as told by your health care provider. Avoid certain medicines, such as decongestants, antihistamines, and some prescription medicines. Do not take any medicine unless your health care provider approves. If you were prescribed an antibiotic medicine, take it as told by your health care provider. Do notstop using the antibiotic even if you start to feel better. General instructions Do not use any products that contain nicotine or tobacco. These products include cigarettes, chewing tobacco, and vaping devices, such as e-cigarettes. If you need help quitting, ask your health careprovider. Drink enough fluid to keep your urine [...] to pass urine or can only pass alittle urine. If left untreated, this can result [...] provider. Document Revised: 07/20/2021 Document Reviewed: 07/20/2021 [employer] Patient Education 2023 [employer]. Follow Up Care 10/20/2024 13:37:01 With:FRANCHESCA PERAZA, URL Address: [facility] [place] [address] Business (1) When:6 weeks [facility] 12-24-2024 NotePatient Education Obstetrics and Gynecology Acute Urinary Retention, Female Acute urinary retention is a condition in which a person is unable to pass urine or can only pass alittle urine. This condition can happen suddenly and [...] to trauma or because she does not wantto use the bathroom. ??? History of preexisting [...] these instructions at home: Medicines ??? Take dshp-yul-ygbzszx and prescription medicines only as told by your health care provider. Avoid certain medicines, such as decongestants, antihistamines, and some prescription medicines. Do nottake any medicine unless your health care provider approves. ??? If you were prescribed an antibiotic medicine, take it as told by your health care provider. Donot stop using the antibiotic even if you [...] narrowing of the tube that drains the bladder(urethra). This may be caused by surgery, problems [...] provider. Document Revised: 07/20/2021 Document Reviewed: 07/20/2021 [employer] Patient Education ? 2023 [employer].[facility] 11-03-2024 Evaluation note* Diagnosis Onset Date Resolution Status [...] stage 4 chronic ki acute November 11, 024 1:26pm Secondary hyperparathyroidism acute November 11, [...] (gastroesophageal reflu x disease) acute January 06 2 025 3:21pm Lumbar degenerative disc disease acu te January 06, 2025 3:21pm Type 2 diabetes mellitus wit h hyperglycemia, with long-term current use of acute January 06, 2 025 3:21pm [facility] Work Phone: 1(774) 469-184012-23-2024 Evaluation note* Diagnosis Onset Date Resolution Status [...] stage 4 chronic ki acute November 11, 024 1:26pm Secondary hyperparathyroidism acute November 11, [...] GERD (gastroesophageal reflu x disease) acute December 26 025 12:52pm Lumbar degenerative disc disease acu te December 26, 2024 12:52pm Seborrhea capitis in adult acute December 26, 2024 12:52pm Type 2 diabetes mellitus wit h diabetic chronic kidney disease acute December 26, 2024 12:52pm Acute on chronic diastolic C HF (congestive heart failure) acute 2024 3:21pm CKD (chronic kidney disease) , stage IV acute January 06, 2 025 3:21pm GERD (gastroesophageal reflu x disease) acute January 06, 2 025 3:21pm Lumbar degenerative disc disease acu te January 06, 2025 3:21pm Type 2 diabetes mellitus wit h hyperglycemia, with long-term current use of acute January 06, 2 025 3:21pm Acute on chronic diastolic C HF (congestive heart failure) acute January 14, 2025 10:00am C. difficile diarrhea acute Jan 10:00am GERD (gastroesophageal reflu x disease) acute January 14, 2025 10:00am Type 2 diabetes mellitus wit h hyperglycemia, with long-term current use of acute January 14, 2025 10:00am [facility] Work Phone: 1([phone]) 942-944812-20-2024 NoteCardiovascular Medicine [facility] SUBJECTIVE Patient is here today for hospital follow-up. She was in [facility] with bradycardia. HPI 10/31/2024 Joe Call is a 79 y.o. female here for follow-up. Patient has history of HFpEF, paroxysmal atrial fibrillation, hypertension, diabetes mellitus type 2, chronic kidney disease, remote history of breast cancer status postchemotherapy and radiation She was recently in [facility] 10/16/2024, she presented with fatigue, lightheadedness [...] few months. Patient here for follow up [facility]. Her diuretic was switched again back [...] Oz of fluid a day per the second shift supervisor. Her most recent discharge on 07/25/24 she [...] pain Depressive disorder Diabe (more content not included)...[facility] Evaluation note* Diagnosis Onset Date [...] acute November 03, 2024 11:24am Bradycardia acute [place] [address] , 2024 11:24am CKD (chronic kidney disease) , stage IV acute November 03, 2 024 11:24am Lumbar spondylosis acute Dece er 2023 11:24am Type 2 diabetes mellitus wit h diabetic chronic kidney disease acute November 03, 2024 11:24am CKD (chronic kidney disease) stage 3, GFR 30-59 ml/min acute [facility] er 2023 1:26pm Hyperlipidemia acute October 142023 [...] disease acu te December 09, 2024 1:24pm [facility] Work Phone: 1(495) 864-841611-27-2024 [facility] SUBJECTIVE Chief Complaint Patient presents with Congestive [...] few months. Patient here for follow up [facility]. Her diuretic was switched again back [...] Oz of fluid a day per the second shift supervisor. Her most recent discharge on 07/25/24 she [...] Depressive disorder Diabetes mellitus (CMS/HCC) Diabetic neuropathy ([facility]/HCC) Exocrine pancreatic insufficiency Gastroesophageal reflux disease Hypertension Hypomagnesemia Hypothyroidism Stage 3 chronic kidney disease ([facility]/HCC) Hyperlipidemia Atrial fibrillation ([facility]/HCC) Paroxysmal atrial fibrillation ([facility]/HCC) Abdominal swelling, generalized Acute on chronic diastolic CHF (congestive heart failure) ([facility]/HCC) Anxiety Back pain with history of spinal surgery Cervical disc disease Chalazion of right eye Dyspnea Hordeolum externum (stye) Immunization due Lactose intolerance 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 ([facility]/HCC) Lumbar degenerative disc disease Lumbar spondylosis Lymph edema Macular degeneration Memory changes Osteoarthritis Secondary hyperparathyroidism (CMS/HCC) Stress incontinence of urine Thrush of mouth and esophagus ([facility]/HCC) Urinary incontinence UTI (urinary tract infection) Yeast cystitis CARMELO (acute kidney injury) ([facility]/HCC) Tremor Acquired hammer toe of right foot Ataxia Balance disorder CHF (congestive heart failure) ([facility]) Dehydration Diabetic foot ([facility]) Diabetic peripheral neuropathy associated with type 2 diabetes mellitus ([facility]) Disability of walking Essential tremor LPRD (laryngopharyngeal reflux disease) Mass of right axilla Paresthesia Throat tightness Type 2 diabetes mellitus with hyperglycemia, with long-term current use of insulin ([facility]) Venous insufficiency (chronic) (peripheral) Debility Past Medical History: Diagnosis Date Atrial fibrillation ([facility]/HCC) Cancer ([facility]) Carotid artery stenosis Coronary (more content not included)...[facility] 10-08-2024 NotePatient here for 1 mo [...] tremors. All other systems reviewed and are negative.[facility] 10-01-2024 History of Present illness Narrative* [...] on chronic diastolic CHF (congestive heart failure) ([facility]) 05/20/2024 CARMELO (acute kidney injury) ([facility]) 05/20/2024 Anxiety 05/20/2024 Aortic valve disorder 08/20/2012 Back pain with history of spinal surgery 05/20/2024 Benign essential hypertension ([facility]) 04/02/2012 Carotid artery stenosis 07/20/2022 Carotid bruit 01/16/2023 Cervical disc disease 05/20/2024 Chalazion of right eye 05/20/2024 Chronic diarrhea 01/16/2023 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 Chronic low back pain 01/16/2023 Coronary atherosclerosis ([facility] [facility]) 03/20/2012 Depressive disorder ([facility]) 01/16/2023 Diabetes mellitus ([facility]) 07/03/2024 Diabetic foot ([facility]) 07/03/2024 Diabetic neuropathy ([facility]) 01/16/2023 Diabetic peripheral neuropathy associated with type 2 diabetes mellitus ([facility]) 07/03/2024 Diastolic dysfunction 09/05/2022 Disability of walking 07/03/2024 Diverticulitis of colon 03/20/2012 Dyspnea 05/20/2024 Exocrine pancreatic insufficiency ([facility]) 01/16/2023 Gastroesophageal reflux disease 01/16/2023 History of malignant neoplasm of breast 03/20/2012 Hordeolum externum (stye) 05/20/2024 Hyperlipidemia ([facility]) 07/03/2024 Hypertension ([facility]) 01/16/2023 Near syncope 07/03/2024 Hypomagnesemia 01/16/2023 Hypothyroidism ([facility]) 01/16/2023 Lumbar degenerative disc disease 05/20/2024 Lumbar spondylosis 05/20/2024 Lymph edema 05/20/2024 Lymphedema of left arm 03/20/2012 Macular degeneration 05/20/2024 Memory changes 05/20/2024 Morbid obesity ([facility]) 07/20/2022 Obstructive sleep apnea syndrome 03/20/2012 Paroxysmal atrial fibrillation ([facility]) 03/20/2012 Paroxysmal supraventricular tachycardia ([facility]) 03/26/2012 Psoriasis ([facility]) 03/20/2012 Secondary hyperparathyroidism ([facility]) 05/20/2024 Stage 3 chronic kidney disease (HCC) ([facility]) 01/16/2023 Hypertensive chronic kidney disease with stage 1 through stage 4 chronic kidney disease, or unspecified chronic kidney disease ([facility]) 07/03/2024 Thrush of mouth and esophagus ([facility]) 05/20/2024 Tremor 06/18/2024 Type 2 diabetes mellitus with hyperglycemia, with long-term current use of insulin ([facility]) 07/03/2024 Venous insufficiency (chronic) (peripheral) 07/03/2024 Essential tremor 07/08/2024 Balance disorder 07/08/2024 Ataxia 07/08/2024 Diabetic peripheral neuropathy ([facility] [facility]) 07/08/2024 Paresthesia 07/08/2024 Sensory ataxia 07/10/2024 Debility 07/10/2024 Weakness 07/10/2024 Paresthesias 07/10/2024 JED (obstructive sleep apnea) 07/22/2024 LPRD (laryngopharyngeal reflux disease) 07/22/2024 Throat tightness 07/22/2024 Resolved Ambulatory Problems Diagnosis Date Noted Acute pain of left shoulder 07/03/2024 Lactose intolerance 05/20/2024 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 ([facility]) 05/20/2024 Pharyngitis 07/03/2024 CKD (chronic kidney disease), stage IV ([facility]) 07/03/2024 Stress incontinence of urine 05/20/2024 Urinary incontinence 05/20/2024 UTI (urinary tract infection) 05/20/2024 Yeast cystitis 05/20/2024 Past Medical History: Diagnosis Date Anemia Breast cancer ([facility]) Coronary heart disease ([facility]) Diverticulosis GERD (gastroesophageal reflux disease) LA (myocardial infarction) ([facility] [place]) Myocardial infarction ([facility]) Type II diabetes mellitus ([facility]) Past Surgical History: Procedure Laterality Date APPENDECTOMY [...] I will call pt. documented in this [facility]11-19-2024 Telephone encounter Note* Telephone Encounter - Jeanne Chacon - 09/30/2024 11:01 AM EST Pt is scheduled with Dr Chacon 10/01/2024. [facility] [id number] Miscellaneous Notes* Telephone Encounter - Jeanne Chacon - 09/30/2024 11:01 AM EST Pt is scheduled with Dr Chacon 10/01/2024. * Telephone Encounter - Jeanne Chacon - 09/26/2024 8:50 AM EST Tried to call pt to schedule a follow up appt for labs, unable to leave a message. documented in this [place] [id number] Telephone encounter Note* Telephone Encounter - Jeanne Chacon - 09/26/2024 8:50 AM EST Tried to call pt to schedule a follow up appt for labs, unable to leave a message. [id number] SUB[facility]IVE Chief Complaint Patient presents with Congestive [...] few months. Patient here for follow up [facility]. Her diuretic was switched again back [...] Oz of fluid a day per the second shift supervisor. Her most recent discharge on 07/25/24 she [...] deficiency Lymphedema of left arm Morbid obesity ([facility]) Obstructive sleep apnea syndrome Paroxysmal supraventricular tachycardia ([facility]) Psoriasis Type 2 diabetes mellitus without complication ([facility]) Mixed hyperlipidemia Diastolic dysfunction Carotid bruit Chronic diarrhea Chronic low back pain Depressive disorder Diabetes mellitus ([facility]/HCC) Diabetic neuropathy ([facility]) Exocrine pancreatic insufficiency Gastroesophageal reflux disease Hypertension Hypomagnesemia Hypothyroidism Stage 3 chronic kidney disease ([facility]) Hyperlipidemia Atrial fibrillation ([facility]/HCC) Paroxysmal atrial fibrillation ([facility]) Abdominal swelling, generalized Acute on chronic diastolic CHF (congestive heart failure) ([facility]) Anxiety Back pain with history of spinal surgery Cervical disc disease Chalazion of right eye Dyspnea Hordeolum externum (stye) Immunization due Lactose intolerance 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 ([facility]/HCC) Lumbar degenerative disc disease Lumbar spondylosis Lymph edema Macular degeneration Memory changes Osteoarthritis Secondary hyperparathyroidism ([facility]/HCC) Stress incontinence of urine Thrush of mouth and esophagus ([facility]/HCC) Urinary incontinence UTI (urinary tract infection) Yeast cystitis CARMELO (acute kidney injury) ([facility]) Tremor Acquired hammer toe of right foot Ataxia Balance disorder CHF (congestive heart failure) ([facility]) Dehydration Diabetic foot ([facility]) Diabetic peripheral neuropathy associated with type 2 diabetes mellitus ([facility]) Disability of walking Essential tremor LPRD (laryngopharyngeal reflux disease) Mass of right axilla Paresthesia Throat tightness Type 2 diabetes mellitus with hyperglycemia, with long-term current use of insulin (CMS/HCC) Venous insufficiency (chronic) (peripheral) Debility Past Medical History: Diagnosis Date Atrial fibrillation (CMS/HCC) Cancer (CMS/HCC) Carotid artery stenosis Coronary artery disease Diabetes mellitus (CMS/HCC) GERD (gastroesophageal reflux disease) Hypertension Sleep apnea Family History Problem Relation Name Age of Onset Coronary artery disease Other Diabetes Other Polycystic kidney disease Other Social History Tobacco Use Smoking status: Former Types: Ci (more content not included)...[facility] NotePatient here for 2 week follow up. Had echo last week and labs drawn this afternoon. Says she's feeling better. Still denies chest pain, palpitations, and bleeding on Xarelto. Review of Systems Cardiovascular: Positive for leg swelling (feet). Respiratory: Positive for shortness of breath. Musculoskeletal: Positive for muscle weakness. Neurological: Positive for tremors. All other systems reviewed and are negative.[facility] 08-20-2024 NoteCardiovascular Medicine [facility] SUBJECTIVE Chief Complaint Patient presents with [...] few months. Patient here for follow up [facility]. Her diuretic was switched again back [...] Oz of fluid a day per the second shift supervisor. Her most recent discharge on 07/25/24 she [...] deficiency Lymphedema of left arm Morbid obesity ([facility]) Obstructive sleep apnea syndrome Paroxysmal supraventricular tachycardia ([facility]) Psoriasis Type 2 diabetes mellitus without complication ([facility]) Mixed hyperlipidemia Diastolic dysfunction Carotid bruit Chronic diarrhea Chronic low back pain Depressive disorder Diabetes mellitus ([facility]) Diabetic neuropathy ([facility]) Exocrine pancreatic insufficiency Gastroesophageal reflux disease Hypertension Hypomagnesemia Hypothyroidism Stage 3 chronic kidney disease ([facility]) Hyperlipidemia Atrial fibrillation ([facility]) Paroxysmal atrial fibrillation ([facility]) Abdominal swelling, generalized Acute on chronic diastolic CHF (congestive heart failure) ([facility]) Anxiety Back pain with history of spinal surgery Cervical disc disease Chalazion of right eye Dyspnea Hordeolum externum (stye) Immunization due Lactose intolerance 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 ([facility]) Lumbar degenerative disc disease Lumbar spondylosis Lymph edema Macular degeneration Memory changes Osteoarthritis Secondary hyperparathyroidism ([facility]) Stress incontinence of urine Thrush of mouth and esophagus ([facility]) Urinary incontinence UTI (urinary tract infection) Yeast cystitis CARMELO (acute kidney injury) ([facility]) Tremor Acquired hammer toe of right foot Ataxia Balance disorder CHF (congestive heart failure) ([facility]) Dehydration Diabetic foot ([facility]) Diabetic peripheral neuropathy associated with type 2 diabetes mellitus ([facility]) Disability of walking Essential tremor LPRD (laryngopharyngeal reflux disease) Mass of right axilla Paresthesia Throat tightness Type 2 diabetes mellitus with hyperglycemia, with long-term current use of insulin ([facility]) Venous insufficiency (chronic) (peripheral) Debility Past Medical History: Diagnosis Date Atrial fibrillation ([facility]/HCC) Cancer ([facility]/HCC) Carotid artery stenosis Coronary artery disease Diabetes mellitus ([facility]/HCC) GERD (gastroesophageal reflux disease) Hypertension Sleep apnea [...] All other systems reviewed (more content not included)...[facility] NotePatient here for follow up [facility]. Her diuretic was switched again back [...] tremors. All other systems reviewed and are negative.[facility] 07-22-2024 History of Present illness Narrative* Christel Chacon [...] on chronic diastolic CHF (congestive heart failure) ([facility]) 05/20/2024 CARMELO (acute kidney injury) ([facility]) 05/20/2024 Anxiety 05/20/2024 Aortic valve disorder 08/20/2012 Back pain with history of spinal surgery 05/20/2024 Benign essential hypertension (CMS/HCC) 04/02/2012 Carotid artery stenosis 07/20/2022 Carotid bruit 01/16/2023 Cervical disc disease 05/20/2024 Chalazion of right eye 05/20/2024 Chronic diarrhea 01/16/2023 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 Chronic low back pain 01/16/2023 Coronary atherosclerosis (CMS/HCC) 03/20/2012 Depressive disorder ([facility]) 01/16/2023 Diabetes mellitus (CMS/HCC) 07/03/2024 Diabetic foot ([facility]) 07/03/2024 Diabetic neuropathy ([facility]) 01/16/2023 Diabetic peripheral neuropathy associated with type 2 diabetes mellitus (CMS/HCC) 07/03/2024 Diastolic dysfunction 09/05/2022 Disability of walking 07/03/2024 Diverticulitis of colon 03/20/2012 Dyspnea 05/20/2024 Exocrine pancreatic insufficiency (CMS/HCC) 01/16/2023 Gastroesophageal reflux disease 01/16/2023 History of malignant neoplasm of breast 03/20/2012 Hordeolum externum (stye) 05/20/2024 Hyperlipidemia (CMS/HCC) 07/03/2024 Hypertension ([facility]) 01/16/2023 Near syncope 07/03/2024 Hypomagnesemia 01/16/2023 Hypothyroidism ([facility]) 01/16/2023 Lumbar degenerative disc disease 05/20/2024 Lumbar spondylosis 05/20/2024 Lymph edema 05/20/2024 Lymphedema of left arm 03/20/2012 Macular degeneration 05/20/2024 Memory changes 05/20/2024 Morbid obesity ([facility]) 07/20/2022 Obstructive sleep apnea syndrome 03/20/2012 Paroxysmal atrial fibrillation ([facility]) 03/20/2012 Paroxysmal supraventricular tachycardia ([facility]) 03/26/2012 Psoriasis ([facility]) 03/20/2012 Secondary hyperparathyroidism ([facility]) 05/20/2024 Stage 3 chronic kidney disease (HCC) ([facility]) 01/16/2023 Hypertensive chronic kidney disease with stage 1 through stage 4 chronic kidney disease, or unspecified chronic kidney disease ([facility]) 07/03/2024 Thrush of mouth and esophagus ([facility]) 05/20/2024 Tremor 06/18/2024 Type 2 diabetes mellitus with hyperglycemia, with long-term current use of insulin ([facility]) 07/03/2024 Venous insufficiency (chronic) (peripheral) 07/03/2024 Essential tremor 07/08/2024 Balance disorder 07/08/2024 Ataxia 07/08/2024 Diabetic peripheral neuropathy ([facility]) 07/08/2024 Paresthesia 07/08/2024 Sensory ataxia 07/10/2024 Debility 07/10/2024 Weakness 07/10/2024 Paresthesias 07/10/2024 Resolved Ambulatory Problems Diagnosis Date Noted Acute pain of left shoulder 07/03/2024 Lactose intolerance 05/20/2024 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 ([facility]) 05/20/2024 Pharyngitis 07/03/2024 CKD (chronic kidney disease), stage IV ([facility]) 07/03/2024 Stress incontinence of urine 05/20/2024 Urinary incontinence 05/20/2024 UTI (urinary tract infection) 05/20/2024 Yeast cystitis 05/20/2024 Past Medical History: Diagnosis Date Anemia Breast cancer ([facility]) Coronary heart disease (CMS/HCC) Diverticulosis GERD (gastroesophageal reflux disease) LA (myocardial infarction) (CMS/HCC) Myocardial infarction (CMS/HCC) Type II diabetes mellitus (CMS/HCC) Past Surgical History: Procedure Laterality Date APPENDECTOMY [...] contribute to throat fullness documented in this encounterSaint [facility] [id number] History of Present illness Narrative* Lizett Jacinto NP - 07/10/2024 1:40 PM EDT Images from [...] HOSP F/U after being seen IP at [facility] for worsening SOB along with lower extremity edema and lower abdominal wall edema after being taken off of Lasix. Was discharged with instructions to f/u with PCP, Cardiologies, Mailroom Manager. States that she was dx with CHF [...] of left shoulder 07/03/2024 Anemia Breast cancer ([facility]) CKD (chronic kidney disease), stage IV ([facility]) 07/03/2024 Coronary heart disease ([facility]) Diverticulosis GERD (gastroesophageal reflux disease) Lactose intolerance 05/20/2024 senior care (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 insulin ([facility]) 05/20/2024 LA (myocardial infarction) ([facility] [place] [facility]) Myocardial infarction ([facility]) Pharyngitis 07/03/2024 Type II diabetes mellitus ([facility]) Urinary incontinence 05/20/2024 Yeast cystitis 05/20/2024 Past [...] as we have not seen her in ayear. She never followed up. Dr. Choe saw [...] would need to be done through the staker surveying. The patient does have benzodiazepines which are [...] modifying techniques such as weighted silverware, utensil screen print operator and/or cups with lids on them. . [...] and the medication options Weighted silverware Utensil screen print operator to aid with writing and putting on [...] to clinic: 2 months documented in this encounterSaint Alexius [id number] NoteUT Cardiology - [facility] Subjective Joe Call is a 78 y.o. year old female patient being seen for 1 mo follow up acute on chronic diastolic heart failure, CAD, and CARMELO. She's presented to [facility] ED several times over the past [...] Hordeolum externum (stye) Immunization due Lactose intolerance senior care (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 insulin (CMS/HCC) Lumbar [...] prior cardiac catheterizations. She has history of LA in the past and underwent balloon angioplasty (many years ago, prior to the stent era). 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 In December 2022 she was admitted to the [facility] with decompensated diastolic heart failure, she was treated with diuretic therapy. In February 2023 she was admitted to [facility] with dehydration secondary to acute gastroenteritis. She also had acute kidney injury in that setting. She has history of breast cancer more than 25 years ago s/p mastectomy, chemo and radiation therapy. She has lymphedema in the left arm. In the past she saw a circulating process inspector for bleeding behind the eye . she [...] April 2024 she was admitted to the [facility] with increasing weakness and altered mental status. She also had acute renal insufficiency. She had UTI secondary to E. coli. She was admitted again to the [facility] on 06/09/2020 for with acute on [...] Appearance: She is well-develo (more content not included)...[facility] Hospital Discharge instructionsAmbulatory Orders * Referral to Urology Time Frame: 02/15/24, Location: None Selected [facility] Work Phone: 1(937) 850-554401-08-2024 Evaluation note* Encounter Date Diagnosis Assessment Notes Treatment Notes Treatment Clinical Notes Nov, Lumbar degenerative disc disease (ICD-10 - M51.36) [facility] Other 12-12-2023 Evaluation note* Encounter Date Diagnosis [...] will check vitamin B12 level next visit [facility] Other 12-11-2023 Evaluation note* Encounter Date Diagnosis Assessment Notes Treatment Notes Treatment Clinical Notes Oct, Lumbar degenerative disc disease (ICD-10 - M51.36) [facility] Other 12-07-2023 Evaluation note* Encounter Date Diagnosis Assessment Notes Treatment Notes Treatment Clinical Notes Oct, Bronchitis (ICD-10 - J40) Finish meds. No acute need for antibiotic at this time Oct, Diabetes mellitus with chronic kidney disease (ICD-10 - E11.22) Due for labs, followup w Dr. Mcconnell Oct, Lumbar degenerative disc disease (ICD-10 - M51.36) Pt will contact neurosurgery. [facility] Other 10-27-2023 Evaluation note* Encounter Date Diagnosis Assessment Notes Treatment Notes Treatment Clinical Notes Aug, Chronic kidney disease, stage 4 (severe) (ICD-10 - N18.4) [facility] Other 10-24-2023 Evaluation note* Encounter Date Diagnosis [...] (ICD-10 - M51.36) Pt requests referral to [place] [facility]. Reviewed [facility] report. Aug, Stress incontinence of urine (ICD-10 - N39.3) R/o infection. Discussed could be related to her diabetes med as well. [facility] Other 10-12-2023 Evaluation note* Encounter Date Diagnosis Assessment Notes Treatment Notes Treatment Clinical Notes Aug, Lumbar degenerative disc disease (ICD-10 - M51.36) [facility] Other 09-11-2023 Evaluation note* Encounter Date Diagnosis Assessment Notes Treatment Notes Treatment Clinical Notes Jul, Lumbar degenerative disc disease (ICD-10 - M51.36) [facility] Other 09-05-2023 Evaluation note* Encounter Date Diagnosis [...] refill. Oarrs reviewed. No med changes needed. [facility] Other 07-05-2023 Evaluation note* Encounter Date Diagnosis Assessment Notes Treatment Notes Treatment Clinical Notes May, C. difficile colitis (ICD-10 - A04.72) [facility] Other 06-19-2023 Evaluation note* Encounter Date Diagnosis Assessment Notes Treatment Notes Treatment Clinical Notes Apr, Skin candidiasis (ICD-10 - B37.2) Discussed this is related to her hyperglycemia. Will treat w nystatin, but needs improvement in diet and glucose readings. Apr, Type 2 diabetes mellitus with hyperglycemia, unspecified whether shelter insulin use (ICD-10 - E11.65) Pt agrees to see Dr Mcconnell again. Recently sent to ER for glucose of 608. 19 Apr, 2023 Tremor of both hands (ICD-10 - R25.1) Referral to Dr. Lopez Apr, Memory changes (ICD- 10 - R41.3) Referral to Dr. Lopez Apr, Gastroesophageal reflux disease without esophagitis (ICD-10 - K21.9) Improved on carafate w PPI. [facility] Other 06-01-2023 Evaluation note* Encounter Date Diagnosis Assessment Notes Treatment Notes Treatment Clinical Notes Apr, Gastroesophageal ref lux disease without esophagitis (ICD-10 - K21.9) [facility] Other 04-28-2023 Evaluation note* Encounter Date Diagnosis [...] get lab ordered on 02/20 today Feb, senior care (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 insulin (ICD-10 - Z79.4) [facility] Other 04-26-2023 Evaluation note* Encounter Date Diagnosis Assessment Notes Treatment Notes Treatment Clinical Notes Feb, C. difficile colitis (ICD-10 - A04.72) [facility] Other 04-17-2023 Evaluation note* Encounter Date Diagnosis Assessment Notes Treatment Notes Treatment Clinical Notes Feb, Gastroesophageal ref lux disease without esophagitis (ICD-10 - K21.9) [facility] Other 04-14-2023 Evaluation note* Encounter Date Diagnosis Assessment Notes Treatment Notes Treatment Clinical Notes Feb, Chronic diarrhea (ICD-10 - K52.9) [facility] Other 04-11-2023 Evaluation note* Encounter Date Diagnosis [...] it really overall has not been helpful. [employer] Other 01-13-2023 Evaluation note* Encounter Date Diagnosis Assessment Notes Treatment Notes Treatment Clinical Notes Nov, Type 2 diabetes mellitus with hyperglycemia, unspecified whether oysterman insulin use (ICD-10 - E11.65) [employer] Other 10-14-2021 Evaluation note* Encounter Date Diagnosis [...] training 6. Follow up in 3 months. [employer] Other Evaluation + Plan note No data available for this section General Surgery [place] Evaluation + Plan note Future Appointments Appointment Date:11/06/2024 11:00:00 AM Scheduled Provider: Location:[facility] Appointment Type:URO Nurse Visit Appointment Date:12/08/2024 11:40:00 AM Scheduled Provider:FRANCHESCA PERAZA PA-C Location:[facility] [place] Appointment Type:URO Office Visit Diagnostic Tests Pending * Renal Function Panel 11/04/24 [facility] evaluation + Plan note Future Appointments Appointment Date:12/08/2024 11:40:00 AM Scheduled Provider:FRANCHESCA PERAZA PA-C Location:[facility] [place] Appointment Type:URO Office Visit Appointment Date:12/18/2024 11:20:00 AM Scheduled Provider:FRANCHESCA PERAZA PA-C Location:[facility] [place] Appointment Type:URO Complex Office Visit [facility] evaluation + Plan note Future Appointments Appointment Date:12/18/2024 11:20:00 AM Scheduled Provider:FRANCHESCA PERAZA PA-C Location:[facility] [place] Appointment Type:URO Complex Office Visit [facility] evaluation noteNo InformationNort [employer] Other evalueyscr noteNort [employer] Other evaluxbkfj noteNort [employer] Other evaluation note* Diagnosis Onset Date Resolution Status Chalazion of right eye acute Immunization due acute Urinary incontinence [facility] Work Phone: Evaluation note* Diagnosis Onset Date Resolution Status Chalazion of right eye acute Immunization due acute Urinary incontinence acute Diabetes mellitus with hyperglycemia acute Hypertension acute Hypothyroidism acute Lumbar spondylosis acute Secondary hyperparathyroidism acute [facility] Work Phone: evaluation note* Diagnosis Onset [...] acute Thrush of mouth and esophagus acute [facility] Work Phone: evaluation note* Diagnosis Onset [...] IV acute UTI (urinary tract infection) acute [facility] Work Phone: evaluation note* Diagnosis Onset [...] acute Thrush of mouth and esophagus acute [id number] acute Secondary hyperparathyroidism acute [facility] Work Phone: evaluation note* Diagnosis Onset [...] acute Thrush of mouth and esophagus acute [id number] acute CKD (chronic kidney disease) stage 3, GFR 30-59 ml/min acute Hyperlipidemia acute [id number] acute Secondary hyperparathyroidism acute Type 2 diabetes mellitus wit h diabetic chronic kidney disease acute Tremor acute [facility] Work Phone: Evaluation note* Diagnosis Onset [...] acute Thrush of mouth and esophagus acute [id number] acute CKD (chronic kidney disease) stage 3, GFR 30-59 ml/min acute Hyperlipidemia acute [id number] acute Secondary hyperparathyroidism acute Type 2 diabetes mellitus wit h diabetic chronic kidney disease acute Acute on chronic diastolic C HF (congestive heart failure) acute [id number] acute Tremor acute [id number] acute [facility] Work Phone: Evaluation note* Diagnosis Onset [...] acute Thrush of mouth and esophagus acute [id number] acute CKD (chronic kidney disease) stage 3, GFR 30-59 ml/min acute Hyperlipidemia acute [id number] acute Secondary hyperparathyroidism acute Type 2 diabetes mellitus wit h diabetic chronic kidney disease acute Acute on chronic diastolic C HF (congestive heart failure) acute [id number] acute Tremor acute [id number] acute Mass of right axilla acute [facility] Work Phone: Evaluation note* Diagnosis Onset [...] acute Thrush of mouth and esophagus acute [id number] acute CKD (chronic kidney disease) stage 3, GFR 30-59 ml/min acute Hyperlipidemia acute [id number] acute Secondary hyperparathyroidism acute Type 2 diabetes mellitus wit h diabetic chronic kidney disease acute Acute on chronic diastolic C HF (congestive heart failure) acute [id number] acute Tremor acute [id number] acute Mass of right axilla acute CHF (congestive heart failure) acute Dehydration acute [id number] acute [id number]-[id number] acute [facility] Work Phone: Evaluation note* Diagnosis Onset [...] acute Thrush of mouth and esophagus acute [id number] acute CKD (chronic kidney disease) stage 3, GFR 30-59 ml/min acute Hyperlipidemia acute [id number] acute Secondary hyperparathyroidism acute Type 2 diabetes mellitus wit h diabetic chronic kidney disease acute Acute on chronic diastolic C HF (congestive heart failure) acute [id number] acute Tremor acute GKS-[id number] acute Back pain with history of spinal surgery acute Cervical disc disease acute CKD (chronic kidney disease), stage IV acute Mass of right axilla acute CHF (congestive heart failure) acute Dehydration acute [id number] acute [id number] acute Dysuria acute [facility] Work Phone: Evaluation note* Diagnosis Onset Date Resolution Status Lumbar degenerative disc disease acute Thrush of mouth and esophagus acute [id number] acute CKD (chronic kidney disease) stage 3, GFR 30-59 ml/min acute Hyperlipidemia acute [id number] acute Secondary hyperparathyroidism acute Type 2 diabetes mellitus wit h diabetic chronic kidney disease acute Acute on chronic diastolic C HF (congestive heart failure) acute [id number] acute Tremor acute VRY-[id number] acute Back pain with history of spinal surgery acute Cervical disc disease acute CKD (chronic kidney disease), stage IV acute Mass of right axilla acute CHF (congestive heart failure) acute Dehydration acute [id number] acute KAV-[id number] acute Dysuria acute [facility] Work Phone: Evaluation note* Diagnosis JED (obstructive sleep apnea)- Primary Obstructive sleep apnea (adult) (pediatric) Hypothyroidism (acquired) ([facility]) Unspecified hypothyroidism documented in this encounter [facility]* Diagnosis Essential tremor- Primary Diabetic polyneuropathy associated with type 2 diabetes mellitus ([facility]) Balance disorder Sensory ataxia Lack of coordination [...] History COLONOSCOPY 04/10/2019 Hospitalization History See above [employer] Other [facility] general Narrative - Reported* Type Description Date [...] History COLONOSCOPY 04/10/2019 Hospitalization History See above [facility] Other [employer] general Narrative - ReportedEzuza Other [employer] general Narrative - ReportedEzuza Other [employer] general Narrative - Reported* Type Description Date [...] GERD 2022 Hospitalization History DIABETES ISSUES 2022 [facility] Other Hospital Discharge instructions No data available for this section General Surgery [place] [facility] Discharge instructionsAmbulatory Orders* Referral to Neurology Time Frame: 06/16/24, Location: None [facility] Work Phone: Hospital Discharge instructionsAmbulatory Orders* Referral to ENT Time Frame: 06/25/24, Location: None [facility] Work Phone: Hospital Discharge instructions Additional Instructions Follow-up with your primary care doctor as you might need medication adjustments to manage your high blood sugar [facility] develop [facility] Progress note No data available for this section General Surgery [place] Repdxj for referral (narrative)No reason for referral [facility] Work [facility]: Rezcch for visit Narrative* Consultation (Routine) - Closed Specialty Diagnoses / Procedures Referred By Contac t Referred To Contact Neurology Diagnoses Tremor, unspecified Procedures CA OFFICE/OUTPATIENT NEW LOW MDM 30 MINUTES Shantel Steven MD [address] [place] [address] Gio Choe MD [address] [place] [address] Referral ID Status Reason Start Date Expiration Date V isits Requested Visits Authorized [id number] Closed Consult and Treat 06/27/2024 12/24/2024 1 1 [facility] Healthcare Summary Purpose Family History No Family History [...] se, stage 4 (severe) (N18.4) Referral Organization [facility] Vlingo helene Referring Provider First Name Shantel Referring Provider Last Name Tenisha Referring Provider Specialty [facility] Spotter Referred Organization [facility] Nephrology Referred Provider Cherie Rapp Referred Address [address] ,[place], [place],[address] Referred Provider Specialty Nephrology Referral Priority Routine General Notes Mariela Kingston 11:35:41 AM >received today, sent P2P Reason *FU 09/13 lumbar p ain Diagnosis 1 Lumbar degenerative disc disease (M51.36) Referral Organization [facility] ATEME helene Referring Provider First Name Shantel Referring Provider Last Name Tenisha Referring Provider Specialty [facility] Spotter Referred Organization [facility] Referred Provider Terell Soliz Referred Address [address] [place], [place],[address] Referred Provider Specialty [facility] Referral Priority Routine General Notes Mariela Kingston 03:09:25 PM >received today, waiting for notes to be locked Mariela Kingston 09/06/2023 10:08:29 AM >notes locked, referral faxed Clinical Notes F: [id number] Reason Poorly controlled di abetes Diagnosis 1 Type 2 diabetes maranda itus with hyperglycemia, unspecified whether oysterman insulin use (E11.65) Referral Organization [facility] ATEME helene Referring Provider First Name Shantel Referring Provider Last Name Tenisha Referring Provider Specialty [facility] Spotter Referred Organization Unknown Facility Referred Provider Joshua Mcconnell Referred Provider Specialty Internal Med icigiacomo Referral Priority Routine Reason tremor and memory lo ss - family history of dementia Diagnosis 1 Tremor of both hands (R25.1) Referral Organization [facility] Vlingo helene Referring Provider First Name Shantel Referring Provider Last Name Tenisha Referring Provider Specialty [facility] Nvidia Referred Organization Unknown Facility Referred Provider Emery [...] disc disease Thrush of mouth and esophagus [id number] Secondary hyperparathyroidism Chief Complaint medication review Amb [...] disc disease Thrush of mouth and esophagus [id number] CKD (chronic kidney disease) stage 3, GFR 30-59 ml/min Hyperlipidemia [id number]-[id number] Secondary hyperparathyroidism Type 2 diabetes mellitus with [...] disc disease Thrush of mouth and esophagus PQX-[id number] CKD (chronic kidney disease) stage 3, GFR 30-59 ml/min Hyperlipidemia [id number] 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 Acute on chronic diastolic CHF (congestive heart failure) [id number] Tremor [id number] Chief Complaint difficulty swallowin g Amb Documentation [...] disc disease Thrush of mouth and esophagus [id number] CKD (chronic kidney disease) stage 3, GFR 30-59 ml/min Hyperlipidemia [id number] 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 Acute on chronic diastolic CHF (congestive heart failure) [id number] Tremor [id number] Mass of right axilla Chief Complaint difficulty [...] disc disease Thrush of mouth and esophagus [id number] CKD (chronic kidney disease) stage 3, GFR 30-59 ml/min Hyperlipidemia [id number]-[id number] 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 Acute on chronic diastolic CHF (congestive heart failure) [id number] Tremor [id number] Mass of right axilla Chief Complaint difficulty [...] disc disease Thrush of mouth and esophagus [id number] CKD (chronic kidney disease) stage 3, GFR 30-59 ml/min Hyperlipidemia [id number] 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 Acute on chronic diastolic CHF (congestive heart failure) [id number] Tremor UUM-[id number] Mass of right axilla CHF (congestive heart failure) Dehydration [id number]-[id number] Chief Complaint difficulty swallowin g Amb Documentation [...] disc disease Thrush of mouth and esophagus [id number] CKD (chronic kidney disease) stage 3, GFR 30-59 ml/min Hyperlipidemia [id number] 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 Acute on chronic diastolic CHF (congestive heart failure) [id number] Tremor [id number] Back pain with history of spinal surgery Cervical disc disease CKD (chronic kidney disease), stage IV Mass of right axilla CHF (congestive heart failure) Dehydration [id number]-[id number] PFF-PWHP-[id number] Dysuria Chief Complaint throat problem SOB RENAL CKD 4 TBH follow up 3 month f/u Kidney injury, high BP R30.0 UA Amb Documentation TBH f/u:Pulmonary Adema Reason for Visit Lumbar degenerative disc disease Thrush of mouth and esophagus [id number]-[id number] CKD (chronic kidney disease) stage 3, GFR 30-59 ml/min Hyperlipidemia [id number] 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 Acute on chronic diastolic CHF (congestive heart failure) [id number]-[id number] Tremor [id number]-[id number]-[id number] Back pain with history of spinal surgery Cervical disc disease CKD (chronic kidney disease), stage IV Mass of right axilla CHF (congestive heart failure) Dehydration [id number] GPT-[id number] Dysuria Chief Complaint Admit Date gen weakness [...] 2024 12:52pm [facility] 12:52[facility] Lumbar degenerative disc disease r y 2024 12:52pm Seborrhea capitis in adult December 12:52pm Type 2 diabetes mellitus wit h diabetic chronic kidney disease December 26, 2024 12:52pm Acute on chronic diastolic CHF (congesti ve heart failure) January 06, 2025 3:21pm CKD (chronic kidney disease), stage IV F [facility] 2024 3:21pm GERD (gastroesophageal reflux disease) F [facility] 2024 3:21pm Lumbar degenerative disc disease 2024 3:21pm Type 2 diabetes mellitus wit [...] 025 12:52pm Gastroesophageal reflux disease (GERD) F [facility] 2024 3:21pm TBH ER:Abd Pain/Chronic Pain January 14, 2025 10:00am [...] 2024 12:52pm GERD (gastroesophageal reflux disease) F [facility] 2024 12:52pm Lumbar degenerative disc disease Februar y 2024 12:52pm Seborrhea capitis in adult December 12:52pm Type 2 diabetes mellitus wit h diabetic chronic kidney disease December 26, 2024 12:52pm Acute on chronic diastolic CHF (congesti ve heart failure) January 06, 2025 3:21pm CKD (chronic kidney disease), [facility] IV [facility] 3:21pm GERD (gastroesophageal reflux disease) F [facility] 2024 3:21pm Lumbar degenerative disc disease Februa2024 3:21pm Type 2 diabetes mellitus wit h hyperglycemia, with long-term current use of January 06, 2025 3:21pm Acute on chronic diastolic CHF (congesti ve heart failure) January 14, 2025 10:00am C. difficile diarrhea January 14, 2025 10 :00am GERD (gastroesophageal reflux disease) [facility] 2024 10:00am Type 2 diabetes mellitus wit h hyperglycemia, with long-term current use of January 14, 2025 10:00am Chief Complaint Admit Date RENAL HOSP F/U November 11, 2024 1:26pm Amb Documentation December 08, 2024 2 :07pm 3 month f/u-HIGH RISK December 09, 2024 1:24pm Gerd/Diabetes-HIGH RISK December 26, 2 025 12:52pm Gastroesophageal reflux disease (GERD) [facility] 3:21pm TBH ER:Abd Pain/Chronic Pain January 14, 2025 10:00am UA January 21, 2025 3:1 9pm Amb Documentation January 28, 2025 8:1 9am High Risk TBH, SOB Plural infusion February 09, 2025 1:58pm Reason for Visit Admit Date CKD (chronic kidney disease) stage 3, GF [...] 2024 12:52pm GERD (gastroesophageal reflux disease) F [facility] 2024 12:52pm Lumbar degenerative disc disease Februar y 2024 12:52pm Seborrhea capitis in adult December 12:52pm Type 2 diabetes mellitus wit h diabetic chronic kidney disease December 26, 2024 12:52pm Acute on chronic diastolic CHF (congesti ve heart failure) January 06, 2025 3:21pm CKD (chronic kidney disease), stage IV F [facility] 2024 3:21pm GERD (gastroesophageal reflux disease) F [facility] 2024 3:21pm Lumbar degenerative disc disease uar 2024 3:21pm Type 2 diabetes mellitus wit h hyperglycemia, with long-term current use of January 06, 2025 3:21pm Acute on chronic diastolic CHF (congesti ve heart failure) January 14, 2025 10:00am C. difficile diarrhea January 14, 2025 10 :00am GERD (gastroesophageal reflux disease) [facility] 2024 10:00am Type 2 diabetes mellitus wit h hyperglycemia, with long-term current use of January 14, 2025 10:00am Diarrhea February 09, 2025 1:5 8pm Chief Complaint Admit Date Amb Documentation December 08, 2024 2 :07pm 3 month f/u-HIGH RISK December 09, 2024 1:24pm Gerd/Diabetes-HIGH RISK December 26 2 025 12:52pm Gastroesophageal reflux disease (GERD) F [facility] 2024 3:21pm TBH ER:Abd Pain/Chronic Pain January 14, 2025 10:00am UA January 21, 2025 3:1 9pm Amb Documentation January 28, 2025 8:1 9am High Risk TBH, SOB Plural infusion February 09, 2025 1:58pm RENAL 3 MONTH F/U February 19, 2025 8:3 2am Reason for Visit Admit Date Abdominal swelling, generalized December 09, 2024 1:24pm [...] 2024 3:21pm GERD (gastroesophageal reflux disease) F [facility] 2024 3:21pm Lumbar degenerative disc disease Februar y 2024 3:21pm Type 2 diabetes mellitus wit h hyperglycemia, with long-term current use of January 06, 2025 3:21pm Acute on chronic diastolic CHF (congesti ve heart failure) January 14, 2025 10:00am C. difficile diarrhea January 14, 2025 10 :00am GERD (gastroesophageal reflux disease) M [facility] 2024 10:00am Type 2 diabetes mellitus wit h hyperglycemia, with long-term current use of January 14, 2025 10:00am Acute on chronic diastolic CHF (congesti ve heart failure) February 09, 2025 1:58pm CKD (chronic kidney disease), stage IV M [facility] 2024 1:58pm Diarrhea February 09, 2025 1:5 8pm GERD (gastroesophageal reflux disease) [facility] 2024 1:58pm Lumbar degenerative disc disease January 122024 1:58pm Type 2 diabetes mellitus wit h hyperglycemia, with long-term current use of February 09, 2025 1:58pm CKD (chronic kidney disease) stage 3, GF R 30-59 ml/min February 19, 2025 8:32am Hyperlipidemia February 19, 2025 8:3 2am Hypertensive chronic kidney disease with stage 1 through stage 4 chronic ki February 19, 2025 8:32am Secondary hyperparathyroidism February 8:32am Type 2 diabetes mellitus wit h diabetic chronic kidney disease February 19, 2025 8:32am Chief Complaint Admit Date Gerd/Diabetes-HIGH RISK December 26, 2 025 12:52pm Gastroesophageal reflux disease (GERD) F ebruary 2024 3:21pm TBH ER:Abd Pain/Chronic Pain January 14, 2025 10:00am UA January 21, 2025 3:1 9pm Amb Documentation January 28, 2025 8:1 9am High Risk TBH, SOB Plural infusion February 09, 2025 1:58pm RENAL 3 MONTH F/U February 19, 2025 8:3 2am follow up egd March 10, 2025 11: 03am Reason for Visit Admit Date Abdominal swelling, generalized December 26, 2024 12:52pm [...] CKD (chronic kidney disease), stage IV F [facility] 2024 3:21pm GERD (gastroesophageal reflux disease) F [facility] 2024 3:21pm Lumbar degenerative disc disease uar y 2024 3:21pm Type 2 diabetes mellitus wit h hyperglycemia, with long-term current use of January 06, 2025 3:21pm Acute on chronic diastolic CHF (congesti ve heart failure) January 14, 2025 10:00am C. difficile diarrhea January 14, 2025 10 :00am GERD (gastroesophageal reflux disease) [facility] 2024 10:00am Type 2 diabetes mellitus wit h hyperglycemia, with long-term current use of January 14, 2025 10:00am Acute on chronic diastolic CHF (congesti ve heart failure) February 09, 2025 1:58pm CKD (chronic kidney disease), stage IV [facility] 2024 1:58pm Diarrhea February 09, 2025 1:5 8pm GERD (gastroesophageal reflux disease) [facility] 2024 1:58pm Lumbar degenerative disc disease January 122024 1:58pm Type 2 diabetes mellitus wit h hyperglycemia, with long-term current use of February 09, 2025 1:58pm CKD (chronic kidney disease) stage 3, GF R 30-59 ml/min February 19, 2025 8:32am Hyperlipidemia February 19, 2025 8:3 2am Hypertensive chronic kidney disease with stage 1 through stage 4 chronic ki February 19, 2025 8:32am Hypokalemia February 19, 2025 8:3 2am Secondary hyperparathyroidism February 8:32am Type 2 diabetes mellitus wit h diabetic chronic kidney disease February 19, 2025 8:32am Diarrhea March 10, 2025 11: 03am GERD (gastroesophageal reflux disease) A pril 2024 11:03am Chief Complaint Admit Date Gerd/Diabetes-HIGH RISK December 26, 2 025 12:52pm Gastroesophageal reflux disease (GERD) F [facility] 2024 3:21pm TBH ER:Abd Pain/Chronic Pain January 14, 2025 10:00am UA January 21, 2025 3:1 9pm Amb Documentation January 28, 2025 8:1 9am High Risk TBH, SOB Plural infusion February 09, 2025 1:58pm RENAL 3 MONTH F/U February 19, 2025 8:3 2am follow up egd March 10, 2025 11: 03am abnormal labs March 12, 2025 1:23pm Reason for Visit Admit Date Abdominal swelling, generalized December 26, 2024 12:52pm Benign essential tremor December 26 025 12:52pm Bloated abdomen December 26, 2024 12:52pm GERD (gastroesophageal reflux disease) F [facility] 2024 12:52pm Lumbar degenerative disc disease Februar y 2024 12:52pm Seborrhea capitis in adult December 12:52pm Type 2 diabetes mellitus wit h diabetic chronic kidney disease December 26, 2024 12:52pm Acute on chronic diastolic CHF (congesti ve heart failure) January 06, 2025 3:21pm CKD (chronic kidney disease), stage IV F [facility] 2024 3:21pm GERD (gastroesophageal reflux disease) F [facility] 2024 3:21pm Lumbar degenerative disc disease Februar 2024 3:21pm Type 2 diabetes mellitus wit h hyperglycemia, with long-term current use of January 06, 2025 3:21pm Acute on chronic diastolic CHF (congesti ve heart failure) January 14, 2025 10:00am C. difficile diarrhea January 14, 2025 10 :00am GERD (gastroesophageal reflux disease) [facility] 2024 10:00am Type 2 diabetes mellitus wit h hyperglycemia, with long-term current use of January 14, 2025 10:00am Acute on chronic diastolic CHF (congesti ve heart failure) February 09, 2025 1:58pm CKD (chronic kidney disease), stage IV [facility] 2024 1:58pm Diarrhea February 09, 2025 1:5 8pm GERD (gastroesophageal reflux disease) [facility] 2024 1:58pm Lumbar degenerative disc disease January 122024 1:58pm Type 2 diabetes mellitus wit h hyperglycemia, with long-term current use of February 09, 2025 1:58pm CKD (chronic kidney disease) stage 3, GF R 30-59 ml/min February 19, 2025 8:32am Hyperlipidemia February 19, 2025 8:3 2am Hypertensive chronic kidney disease with stage 1 through stage 4 chronic ki February 19, 2025 8:32am Hypokalemia February 19, 2025 8:3 2am Secondary hyperparathyroidism February 8:32am Type 2 diabetes mellitus wit h diabetic chronic kidney disease February 19, 2025 8:32am Diarrhea March 10, 2025 11: 03am Dyspepsia March 10, 2025 11: 03am GERD (gastroesophageal reflux disease) A pril 2024 11:03am IBS (irritable bowel syndrome) February 11:03am Chief Complaint Admit Date Gastroesophageal reflux disease (GERD) F [facility]2024 3:21pm TBH ER:Abd Pain/Chronic Pain January 14, 2025 10:00am UA January 21, 2025 3:1 9pm Amb Documentation January 28, 2025 8:1 9am High Risk TBH, SOB Plural infusion February 09, 2025 1:58pm RENAL 3 MONTH F/U February 19, 2025 8:3 2am follow up egd March 10, 2025 11: 03am abnormal labs March 12, 2025 1:23pm Amb Documentation March 13, 2025 9:28am Concerns March 24, 2025 1:51p m Reason for Visit Admit Date Acute on chronic diastolic CHF (congesti ve heart failure) January 06, 2025 3:21pm CKD (chronic kidney disease), stage IV F [id number] 3:21pm GERD (gastroesophageal reflux disease) F [facility] 2024 3:21pm Lumbar degenerative disc disease uar 2024 3:21pm Type 2 diabetes mellitus wit h hyperglycemia, with long-term current use of January 06, 2025 3:21pm Acute on chronic diastolic CHF (congesti ve heart failure) January 14, 2025 10:00am C. difficile diarrhea January 14, 2025 10 :00am GERD (gastroesophageal reflux disease) M 2024 10:00am Type 2 diabetes mellitus wit h hyperglycemia, with long-term current use of January 14, 2025 10:00am Acute on chronic diastolic CHF (congesti ve heart failure) February 09, 2025 1:58pm CKD (chronic kidney disease), stage IV M arch 2024 1:58pm Diarrhea February 09, 2025 1:5 8pm GERD (gastroesophageal reflux disease) M [facility] 2024 1:58pm Lumbar degenerative disc disease January 122024 1:58pm Type 2 diabetes mellitus wit h hyperglycemia, with long-term current use of February 09, 2025 1:58pm CKD (chronic kidney disease) stage 3, GF R 30-59 ml/min February 19, 2025 8:32am Hyperlipidemia February 19, 2025 8:3 2am Hypertensive chronic kidney disease with stage 1 through stage 4 chronic ki February 19, 2025 8:32am Hypokalemia February 19, 2025 8:3 2am Secondary hyperparathyroidism February 8:32am Type 2 diabetes mellitus wit h diabetic chronic kidney disease February 19, 2025 8:32am Diarrhea March 10, 2025 11: 03am Dyspepsia March 10, 2025 11: 03am GERD (gastroesophageal reflux disease) A pril 2024 11:03am IBS (irritable bowel syndrome) February 11:03am Type 2 diabetes mellitus wit h hyperglycemia, with long-term current use of March 24, 2025 1:51pm Chief Complaint Admit Date UA January 21, 2025 3:1 9pm Amb Documentation January 28, 2025 8:1 9am High Risk TBH, SOB Plural infusion February 09, 2025 1:58pm RENAL 3 MONTH F/U February 19, 2025 8:3 2am follow up egd March 10, 2025 11: 03am abnormal labs March 12, 2025 1:23pm Amb Documentation March 13, 2025 9:28am Concerns March 24, 2025 1:51p m HIGH RISK, rash April 16, 2025 10:19 am Reason for Visit Admit Date Acute on chronic diastolic CHF (congesti ve heart failure) February 09, 2025 1:58pm CKD (chronic kidney disease), stage IV M [facility] 31st, 2025 1:58pm Diarrhea February 09, 2025 1:5 8pm GERD (gastroesophageal reflux disease) M arch 2024 1:58pm Lumbar degenerative disc disease January [id number] 1:58pm Type 2 diabetes mellitus wit h hyperglycemia, with long-term current use of February 09, 2025 1:58pm CKD (chronic kidney disease) stage 3, GF R 30-59 ml/min February 19, 2025 8:32am Hyperlipidemia February 19, 2025 8:3 2am Hypertensive chronic kidney disease with stage 1 through stage 4 chronic ki February 19, 2025 8:32am Hypokalemia February 19, 2025 8:3 2am Secondary hyperparathyroidism February 8:32am Type 2 diabetes mellitus wit h diabetic chronic kidney disease February 19, 2025 8:32am Diarrhea March 10, 2025 11: 03am Dyspepsia [...] (urinary tract infection) March 24, 2025 1:51pm Chief Complaint Admit Date UA January 21, 2025 3:1 9pm Amb Documentation January 28, 2025 8:1 9am High Risk TBH, SOB Plural infusion February 09, 2025 1:58pm RENAL 3 MONTH F/U February 19, 2025 8:3 2am follow up egd March 10, 2025 11: 03am abnormal labs March 12, 2025 1:23pm Amb Documentation March 13, 2025 9:28am Concerns March 24, 2025 1:51p m HIGH RISK, rash April 16, 2025 10:19 am 6 week follow up April 21, 2025 2:10 pm Reason for Visit Admit Date Acute on chronic diastolic CHF (congesti ve heart failure) February 09, 2025 1:58pm CKD (chronic kidney disease), stage IV M arch 2024 1:58pm Diarrhea February 09, 2025 1:5 8pm GERD (gastroesophageal reflux disease) M arch 2024 1:58pm Lumbar degenerative disc disease January [id number] 1:58pm Type 2 diabetes mellitus wit h hyperglycemia, with long-term current use of February 09, 2025 1:58pm CKD (chronic kidney disease) stage 3, GF R 30-59 ml/min February 19, 2025 8:32am Hyperlipidemia February 19, 2025 8:3 2am Hypertensive chronic kidney disease with stage 1 through stage 4 chronic ki February 19, 2025 8:32am Hypokalemia February 19, 2025 8:3 2am Secondary hyperparathyroidism February 8:32am Type 2 diabetes mellitus wit h diabetic chronic kidney disease February 19, 2025 8:32am Diarrhea March 10, 2025 11: 03am Dyspepsia [...] 2025 10:19am GERD (gastroesophageal reflux disease) J [facility] 2024 2:10pm IBS (irritable bowel syndrome) April 2:10pm Chief Complaint Admit Date follow up egd [...] 2:10pm IBS (irritable bowel syndrome) April 2:10pm Additional Source Comments INFORMATION SOURCE (unrecogn ized section and content) DATE CREATED AUTHOR 05/10/[address] [facility] DATE CREATED AUTHOR AUTHOR'S ORGANIZ ATION 03/10/2023 [facility] DATE CREATED AUTHOR AUTHOR'S ORGANIZ ATION 10/04/[address] [facility] EPIC DATE CREATED AUTHOR AUTHOR'S ORGANIZ ATION 12/21/2024 [facility] DATE CREATED AUTHOR AUTHOR'S ORGANIZ ATION 03/31/2025 [facility] DATE CREATED AUTHOR AUTHOR'S ORGANIZ ATION 05/24/2025 [facility] REASON FOR VISIT (unrecogniz ed section [...] Provider Active Start : March 02, 2025 Team Status: Inactive Member Role Status Dates Shantel Steven MD Primary Care Provider Active Start: March 10, 2025 End: March 10, 2025 Cheng Aviles APRN Attending Provider Active Start: March 10, 2025 End: March 10, 2025 Team Status: Inactive Member Role Status Dates Shantel Steven MD Primary Care Provider Active Start: March 12, 2025 End: March 12, 2025 Jorge Calix DO Emergency Provider Active Sta rt: March 12, 2025 End: March 12, 2025 Team Status: Active Member Role Status Dates Shantel Steven MD Primary Care Provider Active Start: March 13, 2025 Wandy Alvarez CMA Attending Provider Active Start: March 13, 2025 Team Status: Inactive Member Role Status Dates Shantel Steven MD Primary Care Provider Active Start: March 24, 2025 End: March 24, 2025 Shantel Steven MD Attending Provider Active St art: March 24, 2025 End: March 24, 2025 Team Status: Inactive Member Role Status Dates Shantel Steven MD Primary Care Provider Active Start: April 16, 2025 End: April 16, 2025 Shantel Steven MD Attending Provider Active St art: April 16, 2025 End: April 16, 2025 Team Status: Inactive Member Role Status Dates Shantel Steven MD Primary Care Provider Active Start: April 21, 2025 End: April 21, 2025 Cheng Aviles APRN Attending Provider Active Start: April 21, 2025 End: April 21, 2025 Team Status: Active Member Role Status Dates Shantel Steven MD Primary Care Provider Active Start: May 11, 2025 Cheng Aviles APRN Attending Provider Active Start: May 11, 2025 Team Status: Active Member Role Status Dates Shantel Steven MD Primary Care Provider Active Start: May 13, 2025 Wandy Alvarez CMA Attending Provider Active Start: May 13, 2025 Team Status: Inactive Member Role Status Dates Shantel Steven MD Primary Care Provider Active Start: May 21, 2025 End: May 21, 2025 Shantel Steven MD Attending Provider Active St art: May 21, 2025 End: May 21, 2025 Team Status: Inactive Member Role Status [...] MD Primary Care Provider Active Start: January 25, 2025 Analisa Bryant MD Attending Provider Active St art: January 25, 2025 Team Status: Active Member Role Status Dates Shantel Steven MD Primary Care Provider Active Start: January 26, 2025 Martine Guerrero Attending Provider Active Start: [facility] 2024 Team Status: Active Member Role Status Dates Shantel Steven MD Primary Care Provide r, Attending Provider Active Start: January 27, 2025 Team Status: Active Member Role Status Cecille Steven MD Primary Care Provider Active Start: January 28, 2025 Wandy Alvarez CMA Attending Provider Active Start: January 28, 2025 Team Status: Inactive Member Role Status Dates Shantel Steven MD Primary Care Provide r, Attending Provider Active Start: February 09, 2025 End: February 09, 2025 Team Status: Inactive Member Role Status Dates Shantel Steven MD Primary Care Provider Active Start: February 19, 2025 End: February 19, 2025 Cherie Rapp MD Attending Provider Active Start : February 19, 2025 End: February 19, 2025 Team Status: Active Member Role Status [...] Care Provider Active Start: September 29, 2024 RUFINO Quevedo Attending Provider Active Start: September 29, 2024 [...] Care Provider Active Start: October 17, 2024 Muari Chavira DO Admit Provider, Othe r Provider [...] Team Status: Inactive Member Role Status Cecille tSeven MD Primary Care Provide r, Other Provider [...] End: January 18, 2024 Franchesca Sullivan APRN LEGAL INTERNRussellC Attending Provider Act chiqui Start: January 18, [...] Team Status: Active Member Role Status Cecille Sandoval DO Attending Provider Active Sta rt: [...] August 07, 2024 End: August 07, 2024 [employer] Relationship Specialty Start Date End Date Shantel Steven MD [address] [place] [facility] [place] [address] PCP - General Family Medicine 06/25/24 [employer] Relationship Specialty Start Date End Date Shantel Steven MD [address] [facility] [place] [address] PCP - General Family Medicine 06/25/24 [employer] Relationship Specialty Start Date End Date Shantel Steven MD [address] [facility] [place] [address] PCP - General Family Medicine 06/25/24 [employer] Officer Relationship Specialty Start Date End Date Shantel tSeven MD [address] [place] [phone] PCP - General Family Medicine 06/25/24 [employer] Officer Relationship Specialty Start Date End Date Shantel Steven MD [address] [facility] [place] [address] PCP - General Family Medicine 06/25/24 [employer] Relationship Specialty Start Date End Date Shantel Steven MD [address] [facility] [place] [phone] PCP - General Family Medicine 06/25/24 [employer] Relationship Specialty Start Date End Date Shantel Steven MD [address] [place] [phone] PCP - General Family Medicine 06/25/24 [employer] Relationship Specialty Start Date End Date Shantel Steven MD [address] [place] [phone] PCP - General Family Medicine 06/25/24 Team Status: Inactive Member Role Status Dates Shantel Steven MD Primary Care Provide r, Attending Provider Active Start: March 24, 2025 End: March 24, 2025 Team Status: Inactive Member Role Status Dates Shantel Steven MD Primary Care Provide r, Attending Provider Active Start: April 16, 2025 End: April 16, 2025 Goals (unrecognized section and content) Goals [...] BE BASED ON THE PRIMARY CLINICAL RECORDS. [facility] [employer] [facility]. provides no warranty or guarantee of the accuracy or completeness of information in this document.
--- NOTE | 2025-05-28 04:53 | ED.GENADUL1 ---
HPI HPI - General Adult General Chief complaint: Weakness Stated complaint: WEAKNESS Time Seen by Provider: 05/28/25 04:52 History of Present Illness HPI narrative: IDDM presents via Squad from home with gen. weakness. states she has been in bed for the past week because she is short of breath. no chest pain. states her blood sugars have been low during early AM. He has been given her less insulin hs because of this . Arrives her with POC BS 60s. has history of CHF. Patient is able to ambulate with a walker Related Data Home Medications ?Medication ?Instructions ?Recorded ?Confirmed insulin glargine 100 unit/mL (3 20 unit subcut BEDTIME 04/25/23 05/28/25 mL) subcutaneous pen (Lantus Solostar U-100 Insulin) alprazolam 0.25 mg tablet 0.25 mg PO TID PRN anxiety 04/30/24 05/28/25 levothyroxine 125 mcg tablet 125 mcg PO .acb 04/30/24 05/28/25 insulin NPH isoph U-100 human 100 1 unit subcut ACHS 06/09/24 05/28/25 unit/mL (3 mL) subcutaneous pen (Novolin N FlexPen) atorvastatin 20 mg tablet 20 mg PO QPM 06/18/24 05/28/25 biotin 10,000 mcg disintegrating 10,000 mcg PO DAILY 06/18/24 05/28/25 tablet cholecalciferol (vitamin D3) 125 125 mcg PO DAILY 06/18/24 05/28/25 mcg (5,000 unit) tablet (Vitamin D3) rivaroxaban 20 mg tablet (Xarelto) 20 mg PO DAILY 06/18/24 05/28/25 vit C 226 mg-vit E 90 mg-copper 1 cap PO BID 06/18/24 05/28/25 0.8 mg-zinc oxide-lutein 5 mg capsule (PreserVision Lutein) diltiazem HCl 120 mg 120 mg PO .QD 07/14/24 05/28/25 capsule,extended release 24 hr famotidine 20 mg tablet 20 mg PO .qhs 07/24/24 05/28/25 omeprazole 40 mg capsule,delayed 40 mg PO .acb 07/24/24 05/28/25 release buspirone 5 mg tablet 5 mg PO BID 01/25/25 05/28/25 duloxetine 20 mg capsule,delayed 20 mg PO DAILY 01/25/25 05/28/25 release ketoconazole 2 % shampoo 1 applic topical .2 TIMES WEEK 01/25/25 01/25/25 propranolol 40 mg tablet 40 mg PO BID 01/25/25 05/28/25 tamsulosin 0.4 mg capsule (Flomax) 0.4 mg PO DAILY 05/28/25 05/28/25 Previous Rx's ?Medication ?Instructions ?Recorded diphenoxylate-atropine 2.5 1 tab PO Q6H PRN Diarrhea 7 days 01/27/25 mg-0.025 mg tablet (Lomotil) #28 tabs magnesium oxide 400 mg (241.3 mg 400 mg PO TID 7 days #21 tabs 01/27/25 magnesium) tablet Allergies Allergy/AdvReac Type Severity Reaction Status Date / Time Iodinated Contrast Media Allergy Intermediate Hives Verified 05/28/25 04:40 shellfish derived Allergy Intermediate Hives Verified 05/28/25 04:40 Sulfa (Sulfonamide Allergy Rash Verified 05/28/25 04:40 Antibiotics) Opioid HPI Opioid Management Most Recent Opioid Data: Last Pain Scale 4 01/25/25, 22:55 Last Pain Intensity 3 06/09/24, 13:07 Last ORT Total Score 0 01/25/25, 07:49 Last ORT Risk Category Low Risk 01/25/25, 07:49 Review of Systems ROS Status of ROS 10 or more systems reviewed and unremarkable except as noted in history and below [facility] Medical History (Updated 05/28/25 @ 06:36 by Paco Bryant MD) CHF (congestive heart failure) ?I50.9 - Heart failure, unspecified (ICD-10) GERD without esophagitis ?K21.9 - Gastro-esophageal reflux disease without esophagitis (ICD-10) Anxiety ?F41.9 - Anxiety disorder, unspecified (ICD-10) Intermittent palpitations ?R00.2 - Palpitations (ICD-10) Acute hyperglycemia ?R73.9 - Hyperglycemia, unspecified (ICD-10) Acute kidney injury ?N17.9 - Acute kidney failure, unspecified (ICD-10) Uncontrolled diabetes mellitus Acute on chronic clinical systolic heart failure ?I50.23 - Acute on chronic systolic (congestive) heart failure (ICD-10) Acute renal failure ?N17.9 - Acute kidney failure, unspecified (ICD-10) Hyperkalemia ?E87.5 - Hyperkalemia (ICD-10) Acute dehydration ?E86.0 - Dehydration (ICD-10) CKD stage 3a, GFR 45-59 ml/min ?N18.31 - Chronic kidney disease, stage 3a (ICD-10) Diabetes mellitus with hyperglycemia, with long-term current use of insulin ?E11.65 - Type 2 diabetes mellitus with hyperglycemia (ICD-10) ?Z79.4 - custodial (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9 - Obesity, unspecified (ICD-10) Surgical History History of cholecystectomy ?Z90.49 - Acquired absence of other specified parts of digestive tract (ICD-10) History of appendectomy ?Z90.49 - Acquired absence of other specified parts of digestive tract (ICD-10) History of hysterectomy ?Z90.710 - Acquired absence of both cervix and uterus (ICD-10) H/O lumbosacral spine surgery ?Z98.890 - Other specified postprocedural states (ICD-10) H/O bilateral mastectomy ?Z90.13 - Acquired absence of bilateral breasts and nipples (ICD-10) Family History Other Family history of CHF (congestive heart failure) Family history of cancer Family history of diabetes mellitus Family history of hypertension H/O mastectomy Social History Within the past year, how often did you have a drink containing alcohol: never Within the past year, how often did you have six or more drinks on one occasion: never Score interpretation: A score less than 3 is consistent with normal alcohol consumption. 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 or athletic groups, or school groups: no Total score: 2 Score interpretation: A score of greater than or equal to 2 indicates the lowest level of social isolation. Little interest or pleasure in doing things: not at all Feeling down, depressed, or hopeless: not at all Feel stressed/tense/nervous/anxious/difficulty sleeping: not at all Due to disability, difficulty making decisions: No Do you think of yourself as: straight/heterosexual Gender Identity: female Exam Constitutional Vital Signs, click to edit/add: Last Vital Signs Temp 97.8 F 05/28/25 04:28 Pulse 83 05/28/25 06:17 Resp 18 05/28/25 06:17 BP 133/91 05/28/25 06:17 Pulse Ox 94 L 05/28/25 06:17 O2 Del Method Room Air 05/28/25 04:28 Common normals: oriented x3 Other: appears weak and fatigued. No respiratory distress HENMT Common normals: normocephalic and head/scalp atraumatic Eye Common normals: EOMs intact bilaterally and conjunctivae normal Respiratory Common normals: normal respiratory effort, no retractions and no use of accessory muscles Cardio Common normals: regular rate, regular rhythm, S1 normal heart sound and S2 normal heart sound GI Common normals: Normal to inspection, nondistended, normoactive bowel sounds present, soft to palpation and non-tender Extremity Other: lymphedema LUE and 1+ edema bilat lower ext Neuro Common normals: oriented x3, CN's II-XII intact bilaterally and moves all extremities Psych Appearance: grossly normal Course Vital Signs Vital signs: Vital Signs Temperature 97.8 F 05/28/25 04:28 Pulse Rate 61 05/28/25 04:28 Respiratory Rate 12 05/28/25 04:28 Blood Pressure 169/69 H 05/28/25 04:28 Pulse Oximetry 92 L 05/28/25 04:28 Oxygen Delivery Method Room Air 05/28/25 04:28 Temperature 97.8 F 05/28/25 04:28 Pulse Rate 83 05/28/25 06:17 Respiratory Rate 18 05/28/25 06:17 Blood Pressure 133/91 05/28/25 06:17 Pulse Oximetry 94 L 05/28/25 06:17 Oxygen Delivery Method Room Air 05/28/25 04:28 Medical Decision Making MDM Narrative Medical decision making narrative: IDDM with history of CHF presents from home with complaint of shortness of breath. Hypoglycemic with POC BS 60s. Given amp D50 and POC BS 126. no chest pain. Blames her shortness of breath on GERD. Cxray with cardiomegaly, left pleural effusion and pulmonary vascular congestion. RA pulse ox 94% RA. Has edema bilat lower ext. BNP elevated 6395. Patient has CKD. troponin neg. UA without infection. lasix ordered. Case discussed with hospitalist and patient accepted for admission Lab Data Labs: Lab Results 05/28/25 05/28/25 05/28/25 Range/Units 04:32 04:45 04:48 WBC 6.9 (4.0-11.0) 10^3/uL RBC 3.77 L (4.20-5.40) 10^6/uL Hgb 11.2 L (12.0-16.0) g/dL Hct 34.4 L (36.0-48.0) % MCV 91.2 (81.0-99.0) fL MCH 29.7 (26.7-34.0) pg MCHC 32.6 (29.9-35.2) g/dL RDW 16.9 H (11.0-15.0) % Plt Count 236 (150-450) 10^3/uL MPV 10.0 (9.5-13.5) fL Neut % (Auto) 66.4 (43.0-75.0) % Lymph % (Auto) 20.0 L (20.5-60.0) % [place] % (Auto) 8.9 (1.7-12.0) % Eos % (Auto) 3.3 (0.9-7.0) % Baso % (Auto) 1.3 (0.2-2.0) % Neut # (Auto) 4.6 (1.4-6.5) 10^3/uL Lymph # (Auto) 1.4 (1.2-3.8) 10^3/uL [place] # (Auto) 0.6 (0.3-0.8) 10^3/uL Eos # (Auto) 0.2 (0.0-0.7) 10^3/uL Baso # (Auto) 0.1 (0.0-0.1) 10^3/uL Abs Immat Gran (auto) 0.01 (0.00-0.03) 10^3/uL Imm/Tot Granulo (auto) 0.1 (0.0-0.5) % Sodium 143 (136-145) mmol/L Potassium 4.1 (3.5-5.1) mmol/L Chloride 107 (98-107) mmol/L Carbon Dioxide 29.3 (21.0-32.0) mmol/L Anion Gap 10.8 BUN 48.0 H (7.0-18.0) mg/dL Creatinine 1.48 H (0.55-1.02) mg/dL Est GFR ( Amer) 41 L (>=60 mL/min/1.73m^2) Est GFR (Non-Af Amer) 34 L (>=60 mL/min/1.73m^2) BUN/Creatinine Ratio 32.4 Glucose 64 L (74-106) mg/dL Calcium 8.5 (8.5-10.1) mg/dL Troponin I High Sens 18.7 (4.0-51.3) pg/mL NT-Pro-B Natriuret Pep 6395.0 H* (<=1800.0) pg/mL Urine Color (YELLOW) Urine Clarity (CLEAR) Urine pH (5.0-9.0) Ur Specific [place] (1.005-1.025) Urine Protein (NEG/TRACE) mg/dL Urine Glucose (UA) (NEGATIVE) mg/dL Urine Ketones (NEGATIVE) mg/dL Urine Occult Blood (NEGATIVE) Urine Nitrite (NEGATIVE) Urine Bilirubin (NEGATIVE) Urine Urobilinogen (0.2-1.0) EU/dL Ur Leukocyte Esterase (NEGATIVE) Urine RBC (0-2) #/HPF Urine WBC (NONE SEEN) #/HPF Ur Squamous Epith Cells (NONE/RARE) #/LPF Urine Crystals (None Seen) #/HPF Amorphous Sediment Urine Bacteria (NONE SEEN) #/HPF Urine Casts (NONE SEEN) #/LPF Hyaline Casts Urine Mucus (NONE SEEN) Ur Culture Indicated? POC Glucose 66 L 63 L (74-106) mg/dL 05/28/25 05/28/25 Range/Units 05:34 06:08 WBC (4.0-11.0) 10^3/uL RBC (4.20-5.40) 10^6/uL Hgb (12.0-16.0) g/dL Hct (36.0-48.0) % MCV (81.0-99.0) fL MCH (26.7-34.0) pg MCHC (29.9-35.2) g/dL RDW (11.0-15.0) % Plt Count (150-450) 10^3/uL MPV (9.5-13.5) fL Neut % (Auto) (43.0-75.0) % Lymph % (Auto) (20.5-60.0) % [place] % (Auto) (1.7-12.0) % Eos % (Auto) (0.9-7.0) % Baso % (Auto) (0.2-2.0) % Neut # (Auto) (1.4-6.5) 10^3/uL Lymph # (Auto) (1.2-3.8) 10^3/uL [place] # (Auto) (0.3-0.8) 10^3/uL Eos # (Auto) (0.0-0.7) 10^3/uL Baso # (Auto) (0.0-0.1) 10^3/uL Abs Immat Gran (auto) (0.00-0.03) 10^3/uL Imm/Tot Granulo (auto) (0.0-0.5) % Sodium (136-145) mmol/L Potassium (3.5-5.1) mmol/L Chloride (98-107) mmol/L Carbon Dioxide (21.0-32.0) mmol/L Anion Gap BUN (7.0-18.0) mg/dL Creatinine (0.55-1.02) mg/dL Est GFR ( Amer) (>=60 mL/min/1.73m^2) Est GFR (Non-Af Amer) (>=60 mL/min/1.73m^2) BUN/Creatinine Ratio Glucose (74-106) mg/dL Calcium (8.5-10.1) mg/dL Troponin I High Sens (4.0-51.3) pg/mL NT-Pro-B Natriuret Pep (<=1800.0) pg/mL Urine Color Lt. yellow (YELLOW) Urine Clarity Clear (CLEAR) Urine pH 7.0 (5.0-9.0) Ur Specific [place] 1.020 (1.005-1.025) Urine Protein >=300 A (NEG/TRACE) mg/dL Urine Glucose (UA) 100 A (NEGATIVE) mg/dL Urine Ketones Negative (NEGATIVE) mg/dL Urine Occult Blood Small A (NEGATIVE) Urine Nitrite Negative (NEGATIVE) Urine Bilirubin Negative (NEGATIVE) Urine Urobilinogen 0.2 (0.2-1.0) EU/dL Ur Leukocyte Esterase Negative (NEGATIVE) Urine RBC 0-2 (0-2) #/HPF Urine WBC 0-2 A (NONE SEEN) #/HPF Ur Squamous Epith Cells Rare (NONE/RARE) #/LPF Urine Crystals Seen A (None Seen) #/HPF Amorphous Sediment Rare Urine Bacteria Trace A (NONE SEEN) #/HPF Urine Casts Seen A (NONE SEEN) #/LPF Hyaline Casts Rare Urine Mucus None seen (NONE SEEN) Ur Culture Indicated? No POC Glucose 126 H (74-106) mg/dL Discharge Plan Discharge Chief Complaint: Weakness Clinical Impression: CHF (congestive heart failure), Hypoglycemia due to type 2 diabetes mellitus Patient Disposition: Admitted As Inpatient
--- NOTE | 2025-05-28 04:55 | XR_ITS ---
The [address] [address] Patient Name: JOE CALL MRN: [id number] date: 1945 Sex: F Assigned Patient Location: ER Current Patient Location: [place] Accession/Order Number: [id number] Exam Date: 05/28/2025 11:16 Report Date: 05/28/2025 11:18 At the request of: ANALISA WHYTE MD Procedure: XR chest 1V PA CHEST: CLINICAL HISTORY: dyspnea COMPARISON: 01/25/2025 Findings: A large cardiomediastinal silhouette. Patchy right lung base opacities. More confluent appearing moderate left basilar opacities. No pneumothorax. IMPRESSION: Left-sided pleural-parenchymal disease likely effusion and atelectasis.. Perihilar congestion may raise possibility for CHF . Impression dictated by: Vargas Langston M.D. 05/28/2025 11:18 AM Dictation Location: [place] [address] Electronically authenticated by: [id number] Y Date: 05/28/2025 11:18
[2025-05-28 04:59] LABS: Hematocrit 34.4 % (36.0-48.0); Hemoglobin 11.2 g/dL (12.0-16.0); Immature Granulocytes Abs Auto 0.01 10^3/uL (0.00-0.03); Immature Granulocytes Pct Auto 0.1 % (0.0-0.5); Lymphocytes Absolute Auto 1.4 10^3/uL (1.2-3.8); Mean Corpuscular HGB Conc 32.6 g/dL (29.9-35.2); Mean Corpuscular Hemoglobin 29.7 pg (26.7-34.0); Mean Corpuscular Volume 91.2 fL (81.0-99.0); Platelet Count 236 10^3/uL (150-450); Red Blood Count 3.77 10^6/uL (4.20-5.40); White Blood Count 6.9 10^3/uL (4.0-11.0)
[2025-05-28 05:22] LABS: Anion Gap 10.8; Blood Urea Nitrogen 48.0 mg/dL (7.0-18.0); Calcium 8.5 mg/dL (8.5-10.1); Carbon Dioxide 29.3 mmol/L (21.0-32.0); Chloride 107 mmol/L (98-107); Estimated GFR (African America 41 (>=60 mL/min/1.73m^2); Estimated GFR (Non-African Ame 34 (>=60 mL/min/1.73m^2); Glucose 64 mg/dL (74-106); Potassium 4.1 mmol/L (3.5-5.1); Sodium 143 mmol/L (136-145)
[2025-05-28 05:24] LABS: NT Pro B Type Natriuretic Pept 6395.0 pg/mL (<=1800.0)
--- NOTE | 2025-05-28 05:36 | XR_ITS ---
The [place] [id number] Patient Name: JOE CALL MRN: [id number] date: 1945 Sex: F Assigned Patient Location: ER Current Patient Location: [place] Accession/Order Number: [id number] Exam Date: 05/28/2025 11:18 Report Date: 05/28/2025 11:20 At the request of: ANALISA WHYTE MD Procedure: XR chest 2V PA AND LATERAL CHEST: CLINICAL HISTORY: short of breath COMPARISON: 05/28/2025 FINDINGS: Enlarged cardiomediastinal silhouette. Patchy right lung base opacities. More confluent appearing moderate left basilar opacities. No pneumothorax. XR/XR chest 2V IMPRESSION: Perihilar and bibasilar airspace opacities greatest left likely effusions and CHF Impression dictated by: Vargas Langston M.D. 05/28/2025 11:20 AM Dictation Location: [place] [address] Electronically authenticated by: [id number] Y Date: 05/28/2025 11:20
[2025-05-28 06:14] LABS: Glucose Urine UA 100 mg/dL (NEGATIVE)
[2025-05-28] MEDS: DEXTROSE/DEXTRIN/MALTOSE 31 GM GEL.INSTANT GLUCOSE PO (06:17)
[2025-05-28] MEDS: DEXTROSE 50 %-WATER 25 GM/50 ML SYRINGE IV (06:18)
[2025-05-28 06:21] LABS: Crystals Seen? Seen #/HPF (None Seen)
[2025-05-28 06:22] LABS: Cast Seen? SEEN #/LPF (NONE SEEN); Urine Culture Indicated NO
--- NOTE | 2025-05-28 06:35 | ECG_ITS ---
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
[2025-05-28] MEDS: FUROSEMIDE 40 MG/4 ML VIAL IVP ×3 (06:40→21:28)
--- NOTE | 2025-05-28 06:54 | CA_ITS ---
Patient Name: JOE CALL MR#: [id number] : 1945 Exam Date: 05/28/2025 Ordering Doctor: MARLA ROWELL ECHOCARDIOGRAM REPORT PROCEDURE: CA ECHO DOPPLER COMPLETE INDICATIONS: CHF COMPARISON: None. DESCRIPTION: COMPLETE ECHOCARDIOGRAM Real-time transthoracic echocardiography with 2D, M-mode, spectral and color flow Doppler performed. QUALITY: Technical quality was good. LEFT VENTRICLE: Normal chamber size. Severe concentric left ventricular hypertrophy. LV EF: Global left ventricular systolic function is hyperdynamic. Calculated left ventricular ejection fraction is 67%. D-shaped septum consistent with right ventricular pressure and/or volume overload. DIASTOLIC: Grade 2, moderate diastolic dysfunction. E/E' consistent with volume overload. ATRIAL SEPTUM: Inadequately seen. LEFT ATRIUM: Moderate dilatation. RIGHT ATRIUM: Normal chamber size. RIGHT VENTRICLE: Normal chamber size. Normal right ventricular systolic function. TRICUSPID VALVE: Normal mobility and thickness. No stenosis with moderate regurgitation. Moderate pulmonary hypertension. RVSP 55mmHg. MITRAL VALVE: Moderately thickened with normal mobility. No evidence of mitral valve stenosis. Severe mitral annular calcification. Trivial mitral regurgitation. AORTIC VALVE: Normal trileaflet appearance. Thickened aortic valve. Normal leaflet mobility. No evidence of aortic valve stenosis. Mild aortic regurgitation. AORTIC ROOT: Normal diameter and appearance. Borderline dilatation of the ascending aorta measuring 3.7cm. PULMONIC VALVE: Normal thickness and mobility. No stenosis. No regurgitation. PERICARDIUM: Trivial pericardial effusion. IVC: Collapses with inspiration. Normal size. PLEURA: Moderate pleural effusion. CONCLUSION: 1. Global left ventricular systolic function is hyperdynamic; visually estimated ejection fraction 65 to 70% 2. D shaped septum consistent with right ventricular pressure and/or volume overload 3. Normal right ventricular size and systolic function 4. Severe left ventricular hypertrophy 5. Grade 2 diastolic dysfunction; E'E' consistent with volume overload 6. The left atrium is moderately dilated 7. Moderate tricuspid regurgitation 8. Moderately elevated right ventricular systolic pressure; RVSP 55 mmHg 9. Mild aortic valve regurgitation 10. Borderline dilation of the ascending aorta Adult Echocardiography Procedure Report Left Ventricle LVEDD (3.7 - 5.6 cm): 3.53 cm LVESD (2.2 - 4.0 cm): 2.54 cm LVIVS thickness (0.6 - 1.2 cm): 1.81 cm LVPW thickness (0.5 - 1.0 cm): 1.72 cm e': 0.07 m/s E - e': 19.53 LVOT Diameter 1.76 cm Left Ventricular Ejection Fraction: 66.68 % Left Atrium LA Volume Index (2D A2C): 45.58 ml/m2 Left Atrium Systolic Dimension: 4.88 cm Mitral Valve MV E to A Ratio: 1.09 Mitral Valve A-Wave Peak Velocity: 1.30 m/s Mitral Valve E-Wave Peak Velocity: 1.41 m/s Right Ventricle RV Internal Diastolic Dimension: 3.49 cm Aorta AO Root Diam: 3.12 cm Ascending Ao Diam: 3.72 cm Aortic Valve Deceleration [place]: 1.82 m/s2 Pressure Half-Time: 447.69 ms Peak Velocity(Antegrade Flow): 1.94 m/s, 1.74 m/s Peak Gradient(Antegrade Flow): 15.01 mm[Hg], 12.06 mm[Hg] Mean Velocity(Antegrade Flow): 1.30 m/s, 1.19 m/s Mean Gradient(Antegrade Flow): 7.76 mm[Hg], 6.45 mm[Hg] Velocity Time Integral: 53.29 cm, 48.50 cm Tricuspid Valve Peak Velocity (Regurgitant Flow): 3.62 m/s, 3.65 m/s, 3.23 m/s Pulmonic Valve Peak Velocity: 0.91 m/s Peak Gradient: 3.01 mm[Hg], 3.59 mm[Hg] Right Atrium Right Atrium Systolic Pressure: 39.26 ml, 39.26 ml Dictated by: Mode Hernandez M.D. on 05/28/2025 at 13:49 Approved by: Mode Hernandez M.D. on 05/28/2025 at 13:55
--- OUTSIDE RECORDS SUMMARY | 2025-05-28 08:00 | XMS_ITS | Encounter Summary ---
Author Organization The [facility] Address [address] [place] [address] Care Team Providers Care Racquet Maker Name Role Phone Theodora Cuevas MD Primary Care Provider [phone] Encounter Details Date Type Department Care Team (Late st Contact Info) Description 05/07/2025 Telephone [facility] Vascular Lab [address] [place] [id number] Mary Carson RN Social History Tobacco Use Types Packs/Day Years Used Date Smoking Tobacco: Former Cigarettes Smokeless Tobacco: Never Alcohol Use Standard Drinks/Week Comments Not Currently 0 (1 standard drink = 0.6 oz pur e alcohol) [place] Safety & Environment Answer Date Rec orded [...] on filedocumented in this encounter Care Teams Racquet Maker Relationship Specialty Start Date End Date Theodora Cuevas MD [address] PCP - General 07/20/22 documented as of this encounter
--- OUTSIDE RECORDS SUMMARY | 2025-05-28 08:00 | XMS_ITS | Clinical Summary ---
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 05/20/2024 Lumbar degenerative [...] Care Team Description 05/07/2025 Travel 05/07/2025 Telephone [facility] Heart and Vascular Center Vascular Lab [address] [place] [address] Mary Carson RN 04/27/2025 Refill [facility] [address] [place] [address] Angelica Valencia MA 04/22/2025 11:00 AM EDT Office Visit [address] [place] [address] Akira Kaplan MD Chronic diastolic congestive heart failure (CMS/HCC) (Primary Dx); Paroxysmal atrial fibrillation (CMS/HCC); Coronary artery disease involving [place] coronary artery of [place] heart without angina pectoris; Impairment of balance; Recurrent falls 04/14/2025 Refill [facility] [address] [place] [address] Angelica Valencia MA Chronic diastolic heart failure (CMS/HCC) 03/02/2025 11:00 AM EDT Office Visit [facility] [address] [place] [facility] [place] [address] Byron Lambert MD Chronic diastolic congestive heart [...] hypercholesterolemia; Pulmonary hypertension (CMS/HCC) 03/02/2025 Orders Only [facility] [address] [place] [address] Angelica Valencia MA 03/02/[address] [phone] Angelica Valencia MA from Last 3 Months [...] topic Insurance [employer] MEDICARE ADVANTAGE Care Teams Bunk House Worker Relationship Specialty Start Date End Date Theodora Cuevas MD [address] [facility] [address] PCP - General 07/20/22
--- OUTSIDE RECORDS SUMMARY | 2025-05-28 08:01 | XMS_ITS | Clinical Summary ---
Author Organization [facility] Address [id number] [address] [place] [address] Care Team Providers Care Geoint Analyst Name Role Phone Theodora Cuevas MD Primary Care Provider [phone] Allergies Active Allergy Reactions Criticality Noted Date Comments Shellfish Derived Hives 10/04/2022 Pt unsure if iodine can be used on the skin Sulfa (Sulfonamide Antibiotics) 04/15/2021 Medications atorvastatin (LIPITOR) 20 mg tablet Take 1 tablet (20 mg total) by mouth in the morning. Active vitamins A,C,E-zinc-romel er (ICAPS AREDS) 14,320-226-200 bzzl-sa-tkgf capsule Take 2 capsules by mouth in the morning and 2 capsules before bedtime. Active omega 4-wny-vkr-fish oil 300-1,000 mg capsule Take by mouth. [...] 08/28/2016, 08/30/2009 Medical Devices Implanted Type Area Varnish Melter Device Identifier Shelf Expiration Date Model / Serial / Lot Lens Iol Ultrasert 24.0d - [id number] - [id number] Implanted:Qty: 1 on 04/26/2021 by Renate Michaels MD at [facility] Lens Right: Eye [employer] 03/18/2023 AU00T0 24.0 / [id number] / NA Lens Iol Ultrasert 22.5d - [id number] - [id number] Implanted:Qty: 1 on 10/26/2022 by Renate Michaels MD at [facility] Lens [employer] 05/08/2025 AU00T0 22.5 / [id number] / NA Insurance [employer] MEDICARE Care Teams Geoint Analyst Relationship Specialty Start Date End Date Theodora Cuevas MD [facility] [place] [address] PCP - General Family Medicine 04/26/21
--- OUTSIDE RECORDS SUMMARY | 2025-05-28 08:01 | XMS_ITS | Clinical Summary ---
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
--- OUTSIDE RECORDS SUMMARY | 2025-05-28 08:01 | XMS_ITS | Clinical Summary ---
Author Organization [facility] Address [address] [place] [address] Care Team Providers Care In File Operator Name Role Phone Jose Francisco Ross DO Primary Care Provider [phone] Social History Tobacco Use Types Packs/Day Years Used Date Smoking Tobacco: Never Assessed Comments Unknown Sex and Gender Information Value Date Recorded Sex Assigned at Not on file Legal Sex Female 3:22 PM EDT Gender Identity Not on file Sexual Orientation Not on file Plan of Treatment Not on file Insurance [employer] Care Teams In File Operator Relationship Specialty Start Date End Date Jose Francisco Ross DO PCP - General Family Medicine 06/23/15
--- OUTSIDE RECORDS SUMMARY | 2025-05-28 08:01 | XMS_ITS | Clinical Summary ---
Author Organization [facility] Address [address], [address] [place] [address] Care Team Providers Care Crate Icer Name Role Phone Theodora Cuevas MD Primary Care Provider [phone] Allergies Active Allergy Reactions Criticality Noted Date [...] on file Insurance [employer] MEDICARE Care Teams Crate Icer Relationship Specialty Start Date End Date Theodora Cuevas MD PCP - General Family Medicine 02/13/18
--- NOTE | 2025-05-28 09:00 | CM.NOTE ---
Rounds made with Dr. Stewart, discussed with pt admission diagnosis and plan of care. No discharge today, pt will require further work-up.
--- NOTE | 2025-05-28 09:05 | SWNOTE1 ---
Incorrect pharmacist critical caremanager of recruiting documentation.
--- NOTE | 2025-05-28 09:44 | SWNOTE1 ---
Correct clinical manager home careenergy efficiency finance manager in chart now. SW and I met with pt in room to discuss potential d/c needs. Pt is from home, she lives with her . Pt voiced she uses a 4 wheeled walker. Pt voiced she gets around well at home despite recent fall. She is on oxygen here at hospital but does not use home oxygen. Pt does not have any needs for discharge at this time. SW did tell pt we would wait for therapy to see her and see what their recommendation is. Pt voiced understanding. SW to follow as needed.
--- NOTE | 2025-05-28 12:11 | CM.NOTE ---
Called [facility] cardiology to notify that pt is inpt for echo read.
--- NOTE | 2025-05-28 12:58 | P.HP_ITS ---
HPI H&P: HPI History of Present Illness Chief complaint: WEAKNESS CHF Narrative: Mrs. Alexander is a 79-year-old female who came in with shortness of breath. She reported that she cannot even walk for a few steps without getting short of breath and needing to stop and rest. She reported having shortness of breath when she lays down even at rest. No chest pain. No abdominal pain. No fever or chills. Minimal cough. Opioid HPI Opioid Management Most Recent Pain and Opioid Data: Last Pain Scale 4 01/25/25, 22:55 Last Pain Intensity 3 06/09/24, 13:07 Last Pain Assessment Today, 09:00 Last ORT Total Score 0 Today, 08:05 Last ORT Risk Category Low Risk Today, 08:05 Review of Systems ROS Status of ROS 10 or more systems reviewed and unremark able except as noted in history and below [facility] Medical History (Updated 05/28/25 @ 13:01 by Monica Stewart MD) CHF (congestive heart failure) ?I50.9 - Heart failure, unspecified (ICD-10) GERD without esophagitis ?K21.9 - Gastro-esophageal reflux disease without esophagitis (ICD-10) Anxiety ?F41.9 - Anxiety disorder, unspecified (ICD-10) Intermittent palpitations ?R00.2 - Palpitations (ICD-10) Acute hyperglycemia ?R73.9 - Hyperglycemia, unspecified (ICD-10) Acute kidney injury ?N17.9 - Acute kidney failure, unspecified (ICD-10) Acute on chronic clinical systolic heart failure ?I50.23 - Acute on chronic systolic (congestive) heart failure (ICD-10) Acute renal failure ?N17.9 - Acute kidney failure, unspecified (ICD-10) Hyperkalemia ?E87.5 - Hyperkalemia (ICD-10) Acute dehydration ?E86.0 - Dehydration (ICD-10) Diabetes mellitus with hyperglycemia, with long-term current use of insulin ?E11.65 - Type 2 diabetes mellitus with hyperglycemia (ICD-10) ?Z79.4 - terminal superintendent (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 insulin (ICD-10) Paroxysmal atrial fibrillation ?I48.0 - Paroxysmal atrial fibrillation (ICD-10) Hypothyroidism (acquired) ?E03.9 - Hypothyroidism, unspecified (ICD-10) Hypertension ?I10 - Essential (primary) hypertension (ICD-10) Hypokalemia ?E87.6 - Hypokalemia (ICD-10) CHF (congestive heart failure) ?I50.9 - Heart failure, unspecified (ICD-10) Cataracts, bilateral ?H26.9 - Unspecified cataract (ICD-10) Breast cancer ?C50.919 - Malignant neoplasm of unspecified site of unspecified female breast (ICD-10) Surgical History History of cholecystectomy ?Z90.49 - Acquired absence of other specified parts of digestive tract (ICD- 10) History of appendectomy ?Z90.49 - Acquired absence of other specified parts of digestive tract (ICD- 10) History of hysterectomy ?Z90.710 - Acquired absence of both cervix and uterus (ICD-10) H/O lumbosacral spine surgery ?Z98.890 - Other specified postprocedural states (ICD-10) H/O bilateral mastectomy ?Z90.13 - Acquired absence of bilateral breasts and nipples (ICD-10) Family History Other Family history of CHF (congestive heart failure) Family history of cancer Family history of diabetes mellitus Family history of hypertension H/O mastectomy Social History Within the past year, how often did you have a drink containing alcohol: never Within the past year, how often did you have six or more drinks on one occasion: never Score interpretation: A score less than 3 is consistent with normal alcohol consumption. 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 Highest level of school completed/degree received: some college, no degree Do you want help with school or training: No Are you now , , , , never or living with a partner: In a typical week, how many times do you talk on the telephone with family, friends, or neighbors: twice per week How often do you get together with friends or relatives: twice per week How often do you attend latter day or buddhist services: never Do you belong to any clubs or organizations such as latter day groups unions, fraJibJab or athletic groups, or school groups: no Total score: 2 Score interpretation: A score of greater than or equal to [address] [facility] st level of social isolation. Little interest or pleasure in doing things: not at all Feeling down, depressed, or hopeless: not at all Feel stressed/tense/nervous/anxious/difficulty sleeping: not at all Due to disability, difficulty making decisions: No Do you think of yourself as: straight/heterosexual Gender Identity: female Meds Home Medications and Allergies Home Medications ?Medication ?Instructions ?Recorded ?Confirmed ?Type insulin glargine 100 unit/mL (3 20 unit subcut BEDTIME 04/25/23 05/28/25 History mL) subcutaneous pen (Lantus Solostar U-100 Insulin) alprazolam 0.25 mg tablet 0.25 mg PO TID PRN anxiety 0 04/30/24 05/28/25 History levothyroxine 125 mcg tablet 125 mcg PO .acb 04/30/24 05/28/25 History insulin NPH isoph U-100 human 100 1 unit subcut ACHS 0 06/09/24 05/28/25 History unit/mL (3 mL) subcutaneous pen (Novolin N FlexPen) atorvastatin 20 mg tablet 20 mg PO QPM 06/18/24 History biotin 10,000 mcg disintegrating 10,000 mcg PO DAILY 0 06/18/24 05/28/25 History tablet cholecalciferol (vitamin D3) 125 125 mcg PO DAILY 06/0405/28/25 History mcg (5,000 unit) tablet (Vitamin D3) rivaroxaban 20 mg tablet (Xarelto) 20 mg PO DAILY 06/0405/28/25 History vit C 226 mg-vit E 90 mg-copper 1 cap PO BID 06/18/24 05/28/25 History 0.8 mg-zinc oxide-lutein 5 mg capsule (PreserVision Lutein) diltiazem HCl 120 mg 120 mg PO .QD 07/14/2405/28 History capsule,extended release 24 hr famotidine 20 mg tablet 20 mg PO .qhs 07/24/2405/28 History omeprazole 40 mg capsule,delayed 40 mg PO .acb 4 05/28/25 History release buspirone 5 mg tablet 5 mg PO BID 01/25/25 5 History duloxetine 20 mg capsule,delayed 20 mg PO DAILY 05/28/25 History release ketoconazole 2 % shampoo 1 applic topical .2 TIMES WE EK 01/25/25 01/25/25 History propranolol 40 mg tablet 40 mg PO BID 01/25/25 History diphenoxylate-atropine 2.5 1 tab PO Q6H PRN Diarrhea 7 days 01/27/25 05/28/25 Rx mg-0.025 mg tablet (Lomotil) #28 tabs magnesium oxide 400 mg (241.3 mg 400 mg PO TID 7 days #21 tabs 01/27/25 Rx magnesium) tablet tamsulosin 0.4 mg capsule (Flomax) 0.4 mg PO DAILY 05/28/25 History Allergies Allergy/AdvReac Type Severity Reaction Status Date / Time Iodinated Contrast Media Allergy Intermediate Hives Verified 05/28/25 04:40 shellfish derived Allergy Intermediate Hives Verified 05/28/25 04:40 Sulfa (Sulfonamide Allergy Rash Verified 05/28/25 04:40 Antibiotics) Exam Narrative Exam Narrative: [pt is awake and alert. oriented to place, time and person, morbidly obese HEENT: [place] conjunctiva and NL buccal mucosa small area of bruising over the left forehead and lower orbit. Normal ocular movement. Neck: Supple, no tenderness Endocrine: No Thyromegaly. Vascular: No JVD or carotid bruit. Lymphatic: No cervical lymphadenopathy. Chest: Bilateral crackles. Heart RRR, no extra sound or murmur. Abd: Soft, no tenderness, no rebound and no rigidity. Increase abd girth therefore clinically I could not exclude the possibility of intra abd mass or organomegaly. LE: No cyanosis or clubbing, no varices. + 1 edema Left arm is a chronically swollen since she had mastectomy. Neuro: A A O. Nl speech, comprehension and attention. Nl and symetrical motor and tone examination through out. []] Constitutional Vital Signs, click to edit/add: Last Vital Signs Temp 97.7 F 05/28/25 08:14 Pulse 78 05/28/25 12:15 Resp 18 05/28/25 08:14 BP 168/81 H 05/28/25 08:14 Pulse Ox 95 05/28/25 08:14 O2 Del Method Nasal Cannula 05/28/25 08:14 O2 Flow Rate 2 05/28/25 08:14 Results Labs Labs: Short CBC 05/28/25 Range/Units 04:45 WBC 6.9 (4.0-11.0) 10^3/uL Hgb 11.2 L (12.0-16.0) g/dL Hct 34.4 L (36.0-48.0) % Plt Count 236 (150-450) 10^3/uL BMP 05/28/25 04:45 Sodium 143 Potassium 4.1 Chloride 107 Carbon Dioxide 29.3 BUN 48.0 H Creatinine 1.48 H Glucose 64 L Calcium 8.5 Urine 05/28/25 Range/Units 06:08 Urine Color Lt. yellow (YELLOW) Urine Clarity Clear (CLEAR) Urine pH 7.0 (5.0-9.0) Ur Specific B[place] 1.020 (1.005-1.025) Urine Protein >=300 A (NEG/TRACE) mg/dL Urine Glucose (UA) 100 A (NEGATIVE) mg/dL Assessment and Plan Assessment and Plan (1) Acute hypoxic respiratory failure: (2) Acute diastolic heart failure: (3) Hypoglycemia due to type 2 diabetes mellitus: (4) Chronic anticoagulation: (5) Yeast dermatitis: (6) Contusion of head: Plan Acute hypoxic respiratory failure, 89% on room air associated with tachypnea, dyspnea on exertion and orthopnea Acute diastolic heart failure. Previous echo showed preserved ejection fraction. Elevated BNP and increased interstitial marking on the chest x-ray with the cardiomegaly. Requested repeat echo rule out the development of valvular disease or systolic dysfunction Intravenous diuresis Troponin is negative. Input and output measurement Strict control of blood pressure. Diabetes with hypoglycemia Previously her diabetes had been uncontrolled with elevated hemoglobin A1c. Reduce Lantus dose. Put her on the level 1 sliding scale.. Monitor blood sugar over the next 24 to 48 hours and adjust home insulin dose accordingly Educated patient about symptoms of hypoglycemia and and how to manage\ Bruising over the left forehead and lower orbit after a fall. No neurological deficit. Reported history of paroxysmal A-fib. Patient is on Xarelto. Patient is on calcium and beta-favian. CKD stage III near baseline Morbid obesity. History of bilateral mastectomy for breast cancer status post chemo and radiation treatment, left arm lymphedema, chronic. Hypothyroidism Continue Synthroid, check TSH Groin candidiasis Start patient on nystatin. Depression anxiety Resume preadmission home medication Hyperlipidemia Resume statin GERD Resume PPI Chronic medical conditions not listed above, incidental findings seen on labs and imaging. These would need to be addressed. Could be addressed when time and condition are appropriate. Could be addressed in the outpatient setting by PCP collaboration with other needed outpatient providers. Urinary Catheter Management Urinary Catheter Management Urethral: Cath placed during this visit: yes Urethral indwelling: No Insertion date: 05/28/25 Insertion time: 06:12
--- NOTE | 2025-05-28 14:36 | SWNOTE1 ---
SW and I stopped back in pt's room to discuss OT recommendation for SNF. Pt's was in room as well. I asked pt how she would feel about going to rehab. Pt voiced she does not want to go. Pt voiced she had too much to take care of at home. Pt's voiced encouragement for her to go. SW and I did explain to pt she would not have to be there forever but long enough to get her back to her baseline. SW advised pt that she would be a precert so we could get that started today in case she wanted to go, and cancel if not. Pt voiced understanding but still declined. SW let pt and her know they could talk about it and SW will be back later on. SW to follow as needed.
[2025-05-28] MEDS: DULOXETINE HCL 20 MG CAPSULE.DR PO (14:50)
[2025-05-28] MEDS: NYSTATIN 15 GM POWDER 1 APPLIC TOPICAL ×2 (14:50→21:29)
[2025-05-28] MEDS: METOPROLOL TARTRATE 25 MG TABLET PO ×2 (14:50→21:28)
--- NOTE | 2025-05-28 15:32 | CM.NOTE ---
Important Message From Medicare discussed with pt, pt verbalizes understanding and signs paper. Original given to pt and copy placed in pt's chart. Reinforced with pt PT and OT recommendations and importance of safety at discharge. Pt states I have home health, reinforced that HH only comes 2-3 times per week where as inpt rehab is PT/OT everyday once or twice per day (More intense). Pt at this time would like to talk more with her prior to making a decision. Explained to pt wer could always start the process and if she shows great improvement, precert could be cancelled and could discharge home.
[2025-05-28] MEDS: INSULIN ASPART 300 UNIT/3 ML PEN SUBQ ×2 (18:47→21:29)
[2025-05-28] MEDS: ACETAMINOPHEN 325 MG TABLET 650 MG PO (21:27)
[2025-05-28] MEDS: BUSPIRONE HCL 10 MG TABLET 5 MG PO (21:28)
[2025-05-28] MEDS: INSULIN GLARGINE 300 UNIT/3 ML INSULN.PEN 15 UNIT SQ (21:28)
[2025-05-28] MEDS: ALPRAZOLAM 0.25 MG TABLET PO (21:28)
[2025-05-28] MEDS: FAMOTIDINE 20 MG TABLET PO (21:28)
[2025-05-28] MEDS: RIVAROXABAN 10 MG TABLET 20 MG PO (21:28)
[2025-05-29] VITALS (19 sets, daily range): BP systolic 142–168; BP diastolic 60–80; PULSE 72–92; TEMP 36.4–37.1; O2SAT 86–98
[2025-05-29] MEDS: ACETAMINOPHEN 325 MG TABLET 650 MG PO (02:18)
[2025-05-29] MEDS: PANTOPRAZOLE SODIUM 40 MG TABLET.DR PO (05:39)
[2025-05-29] MEDS: LEVOTHYROXINE SODIUM 125 MCG TABLET PO (05:39)
[2025-05-29 05:42] LABS: Hematocrit 32.2 % (36.0-48.0); Hemoglobin 10.6 g/dL (12.0-16.0); Mean Corpuscular HGB Conc 32.9 g/dL (29.9-35.2); Mean Corpuscular Hemoglobin 29.9 pg (26.7-34.0); Mean Corpuscular Volume 91.0 fL (81.0-99.0); Platelet Count 208 10^3/uL (150-450); Red Blood Count 3.54 10^6/uL (4.20-5.40); White Blood Count 19.8 10^3/uL (4.0-11.0)
[2025-05-29 05:56] LABS: Anion Gap 13.4; Blood Urea Nitrogen 42.0 mg/dL (7.0-18.0); Calcium 8.3 mg/dL (8.5-10.1); Carbon Dioxide 28.4 mmol/L (21.0-32.0); Chloride 105 mmol/L (98-107); Estimated GFR (African America 40 (>=60 mL/min/1.73m^2); Estimated GFR (Non-African Ame 33 (>=60 mL/min/1.73m^2); Glucose 130 mg/dL (74-106); Magnesium 1.2 mg/dL (1.8-2.4); Potassium 3.8 mmol/L (3.5-5.1); Sodium 143 mmol/L (136-145)
[2025-05-29 06:08] LABS: Basophils Abs Manual 0.00 10^3/uL (0.00-0.10); Basophils Percent Manual 0.0 % (0.2-2.0); Eosinophils Absolute Manual 0.00 10^3/uL (0.00-0.70); Eosinophils Percent Manual 0.0 % (0.9-7.0); Lymphocytes Absolute Manual 0.59 10^3/uL (1.20-3.80); Lymphocytes Percent Manual 3.0 % (20.5-60.0); Monocytes Absolute Manual 1.18 10^3/uL (0.30-0.80); Monocytes Percent Manual 6.0 % (1.7-12.0); Segmented Neut Absolute Manual 18.01 10^3/uL (1.4-6.5); Segmented Neutrophils % Manual 91.0 (43.0-75.0)
--- NOTE | 2025-05-29 08:30 | PC.NURSE ---
Dr. Stewart aware of patients increased confusion
--- NOTE | 2025-05-29 09:00 | CM.NOTE ---
Rounds made with Dr. Stewart, discussed diagnosis and plan of care with pt and . No discharge today. Discussed with search engine optimization consultant therapy at discharge, pt refuses skilled therapy at discharge.
[2025-05-29] MEDS: NYSTATIN 15 GM POWDER 1 APPLIC TOPICAL ×2 (10:01→20:10)
[2025-05-29] MEDS: BUSPIRONE HCL 10 MG TABLET 5 MG PO ×2 (10:01→20:10)
[2025-05-29] MEDS: CHOLECALCIFEROL (VITAMIN D3) 125 MCG/5,000 UNIT TABLET PO (10:01)
[2025-05-29] MEDS: DULOXETINE HCL 20 MG CAPSULE.DR PO (10:01)
[2025-05-29] MEDS: METOPROLOL TARTRATE 25 MG TABLET PO ×2 (10:01→20:10)
--- NOTE | 2025-05-29 11:56 | PM.PN ---
Progress Note: Subjective Subjective Interval history: Patient is feeling better. Less shortness of breath. Less cough and congestion Exam Narrative Exam Narrative: [pt is awake and alert. oriented to place, time and person, morbidly obese HEENT: [place] conjunctiva and NL buccal mucosa small area of bruising over the left forehead and lower orbit. Normal ocular movement. Neck: Supple, no tenderness Endocrine: No Thyromegaly. Vascular: No JVD or carotid bruit. Lymphatic: No cervical lymphadenopathy. Chest: Bilateral crackles. Heart RRR, no extra sound or murmur. Abd: Soft, no tenderness, no rebound and no rigidity. Increase abd girth therefore clinically I could not exclude the possibility of intra abd mass or organomegaly. LE: No cyanosis or clubbing, no varices. + 1 edema Left arm is a chronically swollen since she had mastectomy. Neuro: A A O. Nl speech, comprehension and attention. Nl and symetrical motor and tone examination through out. []] Constitutional Vital Signs, click to edit/add: Last Vital Signs Temp 97.6 F 05/29/25 07:28 Pulse 88 05/29/25 10:00 Resp 18 05/29/25 07:28 BP 142/60 H 05/29/25 07:28 Pulse Ox 94 L 05/29/25 07:28 O2 Del Method Nasal Cannula 05/29/25 07:28 O2 Flow Rate 2 05/29/25 07:28 Progress Note: Objective Labs Labs: Short CBC 05/29/25 Range/Units 05:24 WBC 19.8 H (4.0-11.0) 10^3/uL Hgb 10.6 L (12.0-16.0) g/dL Hct 32.2 L (36.0-48.0) % Plt Count 208 (150-450) 10^3/uL BMP 05/29/25 05:24 Sodium 143 Potassium 3.8 Chloride 105 Carbon Dioxide 28.4 BUN 42.0 H Creatinine 1.53 H Glucose 130 H Calcium 8.3 L Progress Note: A&P Assessment and Plan (1) Acute hypoxic respiratory failure: (2) Acute diastolic heart failure: (3) Hypoglycemia due to type 2 diabetes mellitus: (4) Chronic anticoagulation: (5) Yeast dermatitis: (6) Contusion of head: Plan Acute hypoxic respiratory failure, 89% on room air associated with tachypnea, dyspnea on exertion and orthopnea Acute diastolic heart failure. Previous echo showed preserved ejection fraction. Elevated BNP and increased interstitial marking on the chest x-ray with the cardiomegaly. Requested repeat echo rule out the development of valvular disease or systolic dysfunction. This came back negative for any systolic dysfunction Continue intravenous diuresis Troponin is negative. Input and output measurement. Patient is 3 L negative balance. Strict control of blood pressure. Diabetes with hypoglycemia Previously her diabetes had been uncontrolled with elevated hemoglobin A1c. Reduced Lantus dose. Put her on the level 1 sliding scale.. Monitor blood sugar over the next 24 to 48 hours and adjust home insulin dose accordingly Educated patient about symptoms of hypoglycemia and and how to manage\ Bruising over the left forehead and lower orbit after a fall. No neurological deficit. Reported history of paroxysmal A-fib. Patient is on Xarelto. Patient is on calcium and beta-favian. Beta-favian has been resumed. CKD stage III near baseline Morbid obesity. History of bilateral mastectomy for breast cancer status post chemo and radiation treatment, left arm lymphedema, chronic. Hypothyroidism Continue Synthroid, check TSH Groin candidiasis Start patient on nystatin. Depression anxiety Resume preadmission home medication Hyperlipidemia Resume statin GERD Resume PPI Chronic medical conditions not listed above, incidental findings seen on labs and imaging. These would need to be addressed. Could be addressed when time and condition are appropriate. Could be addressed in the outpatient setting by PCP collaboration with other needed outpatient providers. Functional impairment. Patient was seen and evaluated by physical Occupational Therapy team. Team recommended short-term skilled care. Patient understood the recommendation very well but declined to agree. Her is at the bedside stating that he cannot force her to go to a nursing facility. I discussed her case with her at the bedside. I provided him information about her disease, prognosis, expectation and trajectory. Answered all of his questions Urinary Catheter Management Urinary Catheter Management Urethral: Cath placed during this visit: yes Urethral indwelling: No Insertion date: 05/28/25 Insertion time: 06:12
[2025-05-29] MEDS: MAGNESIUM SULFATE IN WATER 2 GM/50 ML PREMIX IV (12:57)
[2025-05-29] MEDS: FUROSEMIDE 40 MG/4 ML VIAL IVP ×2 (12:57→20:09)
--- NOTE | 2025-05-29 14:49 | OT.DAILY ---
Occupational Therapy Daily Note OT Inpatient Daily Visit Note Start: 05/28/25 13:51 Freq: Status: Active Protocol: Document 05/29/25 14:39 [id number] (Rec: 05/29/25 14:49 [id number]) OT Visit Details Time In/Time Out Time In 14:28 Time Out 14:38 OT Treatment Plan Subjective Subjective Pt required 5-7 VCs to attend to task, Pt fatigued and with minimally open eyes. Denies pain at this time. Objective Objective Pt sitting up in bed, wanting to sleep. Demonstrates difficulty attending to instructions and maintaining conversation. With set-up of supplies Pt able to wash face, Min A reaching neck. Pt instructed to complete hair hygiene, did not reach above head to wash hair and continued to wash face. Pt minimally opening eyes to participate. Assessment Assessment When offered self-care tasks Pt would refuse with poor motivation and need for self care. Family members not present during session. Continue OT POC. OT Machine Zipper Trimmer Timed Codes Self-Custodial 10 Management minutes ( minutes) Self-Custodial 1 Management units
--- NOTE | 2025-05-29 15:39 | SWNOTE1 ---
I stopped in pt's room to discuss d/c plan. Pt was sitting up in chair but had eyes closed. Pt's was in room as well. I asked pt if she would like to have home health come in instead of going to rehab. Pt refused home health services at this time.
[2025-05-29] MEDS: QUETIAPINE FUMARATE 25 MG TABLET PO (20:09)
[2025-05-29] MEDS: FAMOTIDINE 20 MG TABLET PO (20:10)
[2025-05-29] MEDS: ALPRAZOLAM 0.25 MG TABLET PO (20:10)
[2025-05-29] MEDS: RIVAROXABAN 10 MG TABLET 20 MG PO (20:10)
[2025-05-29] MEDS: INSULIN GLARGINE 300 UNIT/3 ML INSULN.PEN 15 UNIT SQ (20:11)
[2025-05-29] MEDS: WATER FOR INJECTION, STERILE 20 ML VIAL INJ (20:26)
[2025-05-29] MEDS: ZIPRASIDONE MESYLATE 20 MG VIAL 10 MG IM (20:26)
[2025-05-30] VITALS (16 sets, daily range): BP systolic 139–164; BP diastolic 70–92; PULSE 63–80; TEMP 36.2–36.4; O2SAT 93–100
[2025-05-30] MEDS: LEVOTHYROXINE SODIUM 125 MCG TABLET PO (05:43)
[2025-05-30] MEDS: PANTOPRAZOLE SODIUM 40 MG TABLET.DR PO (05:43)
[2025-05-30 06:57] LABS: Hematocrit 32.9 % (36.0-48.0); Hemoglobin 10.6 g/dL (12.0-16.0); Mean Corpuscular HGB Conc 32.2 g/dL (29.9-35.2); Mean Corpuscular Hemoglobin 29.7 pg (26.7-34.0); Mean Corpuscular Volume 92.2 fL (81.0-99.0); Platelet Count 183 10^3/uL (150-450); Red Blood Count 3.57 10^6/uL (4.20-5.40); White Blood Count 18.7 10^3/uL (4.0-11.0)
[2025-05-30 07:08] LABS: Anion Gap 13.5; Blood Urea Nitrogen 47.0 mg/dL (7.0-18.0); Calcium 8.5 mg/dL (8.5-10.1); Carbon Dioxide 27.5 mmol/L (21.0-32.0); Chloride 106 mmol/L (98-107); Estimated GFR (African America 33 (>=60 mL/min/1.73m^2); Estimated GFR (Non-African Ame 28 (>=60 mL/min/1.73m^2); Glucose 97 mg/dL (74-106); Potassium 4.0 mmol/L (3.5-5.1); Sodium 143 mmol/L (136-145)
[2025-05-30 07:21] LABS: Magnesium 1.8 mg/dL (1.8-2.4)
--- NOTE | 2025-05-30 08:00 | XR_ITS ---
[place] [id number] Patient Name: JOE CALL MRN: [id number] date: 1945 Sex: F Assigned Patient Location: [place] Current Patient Location: [place] Accession/Order Number: [id number] Exam Date: 05/30/2025 09:15 Report Date: 05/30/2025 09:17 At the request of: MARLA ROWELL MD Procedure: XR chest 1V PA CHEST: CLINICAL HISTORY: CHF comparison COMPARISON: 05/28/2025 Findings: Enlarged cardiomediastinal silhouette. Perihilar pulmonary vasculature and Patchy right lung base opacities. More confluent appearing moderate left basilar opacities. No pneumothorax. XR/XR chest 1V IMPRESSION: Mildly improved, yet persistent, perihilar congestion. Persistent bibasilar opacities most confluent in the left Impression dictated by: Vargas Langston M.D. 05/30/2025 9:17 AM Dictation Location: [place] [id number] Electronically authenticated by: [id number] Y Date: 05/30/2025 09:17
--- NOTE | 2025-05-30 10:41 | PT.DAILY ---
Physical Therapy Daily Note PT Daily Note/Assess Start: 05/28/25 17:40 Freq: Status: Active Protocol: Document 05/30/25 10:25 [email or web address] (Rec: 05/30/25 10:41 [id number]) Visit Not Completed Visit Not Completed Visit Not Completed Nursing request to hold Due to: Other Reason Visit Per nursing patient is hard to arouse this AM, Not Completed increased confusion with aggressive behaviors previous night. Okay to hold PT this AM. Physical Therapy Daily Note/Assessment Time In/Time Out Time In 10:25 Time Out 10:25 GG. Functional Abilities and Goals-Complete for Swing Bed Patients Only [id number]. Self-Care [id number]. Mobility
[2025-05-30] MEDS: DEXTROSE 50 %-WATER 25 GM/50 ML SYRINGE IV (10:53)
[2025-05-30] MEDS: NYSTATIN 15 GM POWDER 1 APPLIC TOPICAL ×2 (10:53→21:07)
--- NOTE | 2025-05-30 10:58 | PC.NURSE ---
BS 69, iv dextrose given due to pts lethargy
--- NOTE | 2025-05-30 11:20 | CT_ITS ---
The [address] [address] Patient Name: JOE CALL MRN: [id number] date: 1945 Sex: F Assigned Patient Location: [place] Current Patient Location: Accession/Order Number: [id number] Exam Date: 05/30/2025 14:24 Report Date: 05/30/2025 14:27 At the request of: MARLA ROWELL MD Procedure: CT chest wo con CT CHEST WITHOUT IV CONTRAST: CLINICAL HISTORY: CHF, effusion, infiltrates COMPARISON: Chest x-ray 05/30/2025 TECHNIQUE: Spiral images were obtained through the chest without IV contrast. This CT exam was performed using one or more following dose reduction techniques: Automated exposure control, adjustment of the mA and/or kV according to patient size, or use of iterative reconstruction technique. FINDINGS: Mediastinum:Cardiac megaly. Mitral valve annulus calcifications. Triple vessel coronary disease. No definite pericardial effusion. No bulky mediastinal or hilar adenopathy on this noncontrast examination. Lungs:Small to moderate right-sided moderate left-sided effusion. Interlobular septal pulmonary edema Opacities and consolidation of the left lung base likely due to volume loss and collapse. Parenchymal bands right lower lobe and right middle lobe likely atelectasis. Similar findings also identified within the lingular and left upper lobe. Abd: Suspected small hiatal hernia Soft tissues/Bones: Degenerative changes. CT/CT chest wo con IMPRESSION: Cardiac megaly with bilateral effusions. Bibasilar opacities likely areas of atelectasis Impression dictated by: Vargas Langston M.D. 05/30/2025 2:27 PM Dictation Location: [place] [address] Electronically authenticated by: [id number] Y Date: 05/30/2025 14:27
--- NOTE | 2025-05-30 11:24 | PM.PN ---
Progress Note: Subjective Subjective Interval history: Patient was delirious and hallucinating yesterday according to her family. Last evening, the patient became very agitated and restless. Nursing staff reported that patient was taking her oxygen off and hitting nurses. Patient was given Geodon 10 mg IM 1 dose and Xanax 0.25 milligram at around 8 PM which is her home medication. Patient rested well overnight. She continues to be lethargic and sleepy this morning. Arousable for a few seconds when she falls back to sleep. Exam Narrative Exam Narrative: Sleeping, lethargic. Arousable for a few seconds when she goes back to sleep. No distress. Chest is clear, heart is regular. Abdomen soft. Constitutional Vital Signs, click to edit/add: Last Vital Signs Temp 97.5 F L 05/30/25 08:00 Pulse 63 05/30/25 10:00 Resp 18 05/30/25 08:00 BP 152/92 H 05/30/25 08:00 Pulse Ox 95 05/30/25 08:00 O2 Del Method Nasal Cannula 05/30/25 08:00 O2 Flow Rate 2 05/30/25 08:00 Progress Note: Objective Labs Labs: Short CBC 05/30/25 Range/Units 06:40 WBC 18.7 H (4.0-11.0) 10^3/uL Hgb 10.6 L (12.0-16.0) g/dL Hct 32.9 L (36.0-48.0) % Plt Count 183 (150-450) 10^3/uL BMP 05/30/25 06:40 Sodium 143 Potassium 4.0 Chloride 106 Carbon Dioxide 27.5 BUN 47.0 H Creatinine 1.78 H Glucose 97 Calcium 8.5 Progress Note: A&P Assessment and Plan (1) Acute hypoxic respiratory failure: (2) Acute diastolic heart failure: (3) Hypoglycemia due to type 2 diabetes mellitus: (4) Chronic anticoagulation: (5) Yeast dermatitis: (6) Contusion of head: Plan Acute delirium, agitation, hallucination and aggressive behaviors towards staff last evening. Patient was given 1 dose of Geodon 10 mg IM and 1 dose of Xanax 0.25 mg p.o. which is her home medication. Patient slept the night. She continues to be sleepy and lethargic. Arousable. I requested a blood gas to rule out hypercapnia and I ordered 1 dose of Romazicon. Acute hypoxic respiratory failure, 89% on room air associated with tachypnea, dyspnea on exertion and orthopnea Acute diastolic heart failure. Previous echo showed preserved ejection fraction. Elevated BNP and increased interstitial marking on the chest x-ray with the cardiomegaly. Requested repeat echo rule out the development of valvular disease or systolic dysfunction. This came back negative for any systolic dysfunction Continue intravenous diuresis Troponin is negative. Input and output measurement. Patient is 3 L negative balance. Strict control of blood pressure. Chest x-ray showed improvement of her heart failure and interstitial edema however she continues to have basilar haziness, probable effusion, less likely infiltration. No fever, but her white count is elevated. Diabetes with hypoglycemia Previously her diabetes had been uncontrolled with elevated hemoglobin A1c. Reduced Lantus dose. Put her on the level 1 sliding scale.. Monitor blood sugar over the next 24 to 48 hours and adjust home insulin dose accordingly Educated patient about symptoms of hypoglycemia and and how to manage\ Bruising over the left forehead and lower orbit after a fall. No neurological deficit. Reported history of paroxysmal A-fib. Patient is on Xarelto. Patient is on calcium and beta-favian. Beta-favian has been resumed. CKD stage III near baseline Morbid obesity. History of bilateral mastectomy for breast cancer status post chemo and radiation treatment, left arm lymphedema, chronic. Hypothyroidism Continue Synthroid, check TSH Groin candidiasis Start patient on nystatin. Depression anxiety Resume preadmission home medication Hyperlipidemia Resume statin GERD Resume PPI Chronic medical conditions not listed above, incidental findings seen on labs and imaging. These would need to be addressed. Could be addressed when time and condition are appropriate. Could be addressed in the outpatient setting by PCP collaboration with other needed outpatient providers. Functional impairment. Patient was seen and evaluated by physical Occupational Therapy team. Team recommended short-term skilled care. Patient understood the recommendation very well but declined to agree. Her is at the bedside stating that he cannot force her to go to a nursing facility. I discussed her case with her and son at the bedside. I provided them information about her disease, prognosis, expectation and trajectory. Answered all of his questions Urinary Catheter Management Urinary Catheter Management Urethral: Cath placed during this visit: yes Urethral indwelling: No Insertion date: 05/28/25 Insertion time: 06:12
[2025-05-30] MEDS: FLUMAZENIL 0.5 MG/5 ML VIAL IV (11:41)
[2025-05-30] MEDS: BUSPIRONE HCL 10 MG TABLET 5 MG PO (21:04)
[2025-05-30] MEDS: ALPRAZOLAM 0.25 MG TABLET PO (21:04)
[2025-05-30] MEDS: RIVAROXABAN 10 MG TABLET 20 MG PO (21:04)
[2025-05-30] MEDS: METOPROLOL TARTRATE 25 MG TABLET PO (21:04)
[2025-05-30] MEDS: FAMOTIDINE 20 MG TABLET PO (21:04)
[2025-05-30] MEDS: ACETAMINOPHEN 325 MG TABLET 650 MG PO (21:04)
[2025-05-31] VITALS (15 sets, daily range): BP systolic 140–153; BP diastolic 68–84; PULSE 64–73; TEMP 36.4–36.7; O2SAT 93–100
[2025-05-31] MEDS: LEVOTHYROXINE SODIUM 125 MCG TABLET PO (05:06)
[2025-05-31] MEDS: PANTOPRAZOLE SODIUM 40 MG TABLET.DR PO (05:06)
[2025-05-31 06:23] LABS: Anion Gap 13.6; Blood Urea Nitrogen 50.0 mg/dL (7.0-18.0); Calcium 8.2 mg/dL (8.5-10.1); Carbon Dioxide 26.2 mmol/L (21.0-32.0); Chloride 106 mmol/L (98-107); Estimated GFR (African America 38 (>=60 mL/min/1.73m^2); Estimated GFR (Non-African Ame 31 (>=60 mL/min/1.73m^2); Glucose 103 mg/dL (74-106); Potassium 3.8 mmol/L (3.5-5.1); Sodium 142 mmol/L (136-145)
[2025-05-31] MEDS: DULOXETINE HCL 20 MG CAPSULE.DR PO (08:34)
[2025-05-31] MEDS: CHOLECALCIFEROL (VITAMIN D3) 125 MCG/5,000 UNIT TABLET PO (08:35)
[2025-05-31] MEDS: NYSTATIN 15 GM POWDER 1 APPLIC TOPICAL (08:35)
[2025-05-31] MEDS: METOPROLOL TARTRATE 25 MG TABLET PO (08:35)
[2025-05-31] MEDS: BUSPIRONE HCL 10 MG TABLET 5 MG PO (08:35)
--- NOTE | 2025-05-31 08:59 | P.PN_ITS ---
Progress Note: Subjective Subjective Interval history: Much more awake today than yesterday. Much more coherent and engaging. Patient reported that she feels much better in terms of her breathing. No chest pain. No abdominal pain. Exam Narrative Exam Narrative: Patient is much more awake and coherent compared to yesterday. She is able to answer questions. She is able to engage in conversation. She is feeling much better in terms of her breathing. No distress. Chest exam revealed diminished breath sound at the bases. Resolution of her crackles. Heart is regular. Abdomen soft. Lower extremities with trace pitting edema. Constitutional Vital Signs, click to edit/add: Last Vital Signs Temp 97.7 F 05/31/25 07:23 Pulse 71 05/31/25 08:00 Resp 16 05/31/25 07:23 BP 144/68 H 05/31/25 07:23 Pulse Ox 98 05/31/25 07:23 O2 Del Method Room Air 05/31/25 07:23 O2 Flow Rate 2 05/31/25 04:00 Progress Note: Objective Labs Labs: [facility] 05/31/25 05:50 Sodium 142 Potassium 3.8 Chloride 106 Carbon Dioxide 26.2 BUN 50.0 H Creatinine 1.60 H Glucose 103 Calcium 8.2 L Progress Note: A&P Assessment and Plan (1) Acute hypoxic respiratory failure: (2) Acute diastolic heart failure: (3) Hypoglycemia due to type 2 diabetes mellitus: (4) Chronic anticoagulation: (5) Yeast dermatitis: (6) Contusion of head: Plan Acute delirium, agitation, hallucination and aggressive behaviors towards staff last evening. Complete resolution. Avoid polypharmacy. 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 Acute hypoxic respiratory failure, 89% on room air associated with tachypnea, dyspnea on exertion and orthopnea Acute diastolic heart failure. Previous echo showed preserved ejection fraction. Elevated BNP and increased interstitial marking on the chest x-ray with the cardiomegaly. Much improved. Currently saturation 98% on room air Requested repeat echo rule out the development of valvular disease or systolic dysfunction. This came back negative for any systolic dysfunction but positive for diastolic dysfunction. Patient is 4.4 L negative balance. Continue intravenous diuresis Troponin is negative. Strict control of blood pressure. Pleural effusion, likely transudate secondary to heart failure Recommend repeat imaging in 4 to 6 weeks in the outpatient setting. If she continues to have a pleural effusion I will recommend diagnostic thoracentesis to rule out other possible etiologies to be arranged by PCP. Diabetes with hypoglycemia Previously her diabetes had been uncontrolled with elevated hemoglobin A1c. Reduced Lantus dose. Put her on the level 1 sliding scale.. Monitor blood sugar over the next 24 to 48 hours and adjust home insulin dose accordingly Educated patient about symptoms of hypoglycemia and and how to manage\ Bruising over the left forehead and lower orbit after a fall. No neurological deficit. Reported history of paroxysmal A-fib. Patient is on Xarelto. Patient is on calcium and beta-favian. Beta-favian has been resumed. CKD stage III near baseline Morbid obesity. History of bilateral mastectomy for breast cancer status post chemo and radiation treatment, left arm lymphedema, chronic. Hypothyroidism Continue Synthroid, check TSH Groin candidiasis Start patient on nystatin. Depression anxiety Resume preadmission home medication Hyperlipidemia Resume statin GERD Resume PPI Chronic medical conditions not listed above, incidental findings seen on labs and imaging. These would need to be addressed. Could be addressed when time and condition are appropriate. Could be addressed in the outpatient setting by PCP collaboration with other needed outpatient providers. Functional impairment. Patient was seen and evaluated by physical Occupational Therapy team. Team recommended short-term skilled care. Patient understood the recommendation very well but declined to agree. I discussed this with her and son on 05/30. Both and the son would like to convince her to go to a skilled facility for short period of time. Likely patient will be ready clinically to be discharged in 24 to 48 hours Urinary Catheter Management Urinary Catheter Management Urethral: Cath placed during this visit: yes Urethral indwelling: No Insertion date: 05/28/25 Insertion time: 06:12
[2025-05-31] MEDS: ACETAMINOPHEN 325 MG TABLET 650 MG PO (09:25)
[2025-05-31] MEDS: FUROSEMIDE 40 MG/4 ML VIAL IVP (09:26)
--- NOTE | 2025-06-01 08:33 | PC.NURSE ---
Follow up appt. with Dr. Cuevas on . 06/04 @ 10:15am [phone]
--- NOTE | 2025-06-01 13:54 | CM.DCFOLLOWU ---
06/01- 1st attempt. No answer
--- NOTE | 2025-06-02 14:11 | CM.DCFOLLOWU ---
Person spoke with:Patient and How are you feeling? She is confused and has buring with urination. reached out to Dr. Cuevas and sent urine. Discussed if things worsen or they don't hear back from Faith's office to bring pt to ER How is your pain? Burning with urination Did you understand your discharge instructions? Yes Do you have any questions about your discharge instructions? No Were you given any prescriptions at discharge? Yes Were you able to get your prescriptions filled? Yes Do you understand how to take your medications as ordered? Yes Do you have any questions about your follow up appointment and do you plan to keep your follow up appointment? Patient will see Dr. Cuevas on Is there anything else that you would like to discuss? No Questions/Comments/Concerns/Other:
--- NOTE | 2025-06-04 12:56 | SWNOTE1 ---
BIJAL received a call from Dr. Morales office, it was Dr. Morales nurse. She was inquiring if pt discharged from the hospital with home health services. BIJAL reviewed previous SS note from previous stay and pt refused home health services. BIJAL let Rebecca know.
== END 2025-05-31 19:14 | disposition home or self-care (01) | DRG 291 ==
LOC: ER 06:36 → MS 08:01
PROVIDERS: Admitting Provider Internal Medicine; Emergency Provider Internal Medicine; PCP Family Medicine; Visit Provider Internal Medicine
DX: I13.0 Hypertensive heart and chronic kidney disease with heart failure and stage 1 through stage 4 chronic kidney disease, or unspecified chronic kidney disease (principal); I50.31 Acute diastolic (congestive) heart failure; J96.01 Acute respiratory failure with hypoxia; R44.3 Hallucinations, unspecified; Z68.41 Body mass index [BMI] 40.0-44.9, adult; E11.22 Type 2 diabetes mellitus with diabetic chronic kidney disease; E11.649 Type 2 diabetes mellitus with hypoglycemia without coma; Z79.4 Long term (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 insulin; Z79.01 Long term (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 anticoagulants; B37.2 Candidiasis of skin and nail; S00.93XA Contusion of unspecified part of head, initial encounter; I48.0 Paroxysmal atrial fibrillation; N18.30 Chronic kidney disease, stage 3 unspecified; E66.01 Morbid (severe) obesity due to excess calories; E03.9 Hypothyroidism, unspecified; F41.8 Other specified anxiety disorders; K21.9 Gastro-esophageal reflux disease without esophagitis; Z85.3 Personal history of malignant neoplasm of breast; Z90.49 Acquired absence of other specified parts of digestive tract; Z90.710 Acquired absence of both cervix and uterus; Z90.13 Acquired absence of bilateral breasts and nipples; Z79.890 Hormone replacement therapy; Z79.899 Other long term (current) drug therapy; Z92.21 Personal history of antineoplastic chemotherapy; Z92.3 Personal history of irradiation; I89.0 Lymphedema, not elsewhere classified; W19.XXXA Unspecified fall, initial encounter; Z74.09 Other reduced mobility; R45.1 Restlessness and agitation; R41.0 Disorientation, unspecified
CPT/HCPCS: 36415; 51702; 71045; 71046; 71250; 80048; 81001; 82805; 82948; 83036; 83735; 83880; 84484; 85007; 85025; 85027; 93005; 93306; 93356; 96374; 96375; 97161; 97165; 97530; 97535; 99285; J1938; J3475; J3486

== ENCOUNTER 2025-06-08 14:28 | Inpatient (IN) | payer MEDICARE, SELFPAY ==
[2025-06-08] VITALS (29 sets, daily range): BP systolic 160–203; BP diastolic 78–111; PULSE 54–67; TEMP 36.4; O2SAT 89–98; BMI 51.6; BMI 42.8
--- NOTE | 2025-06-08 14:52 | ECG_ITS ---
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 Measurements Intervals [place] Rate: 57 P: 75 HI: 168 QRS: 35 QRSD: 104 T: 81 QT: 448 QTc: 441 Interpretive Statements 1100 Sinus rhythm 4068 Nonspecific [place] abnormality 9130 borderline ECG Compared to ECG 05/28/2025 04:57:45 Myocardial infarct finding no longer present Electronically Signed On 06-08-2025 17:46:46 EDT by RICA MEDRANO M.D.
--- NOTE | 2025-06-08 14:52 | XR_ITS ---
[facility] [place] [id number] Patient Name: JOE CALL MRN: [id number] date: 1945 Sex: F Assigned Patient Location: ER Current Patient Location: ER Accession/Order Number: [id number] Exam Date: 06/08/2025 15:58 Report Date: 06/08/2025 16:00 At the request of: JANIE DURHAM MD Procedure: XR chest 1V Single view chest: CLINICAL HISTORY: SOB COMPARISON: CT chest 05/30/2025. FINDINGS: Cardiomegaly with vascular congestion , moderate right and small left pleural effusions as seen on the prior CT study. No new consolidation pneumothorax or free air. XR/XR chest 1V IMPRESSION: CHF FINDINGS GROSSLY SIMILAR TO THE PRIOR CT STUDY FROM 05/30/2025. Impression dictated by: Cosme Morales Jr. DDoreenODoreen 06/08/2025 4:00 PM Dictation Location: [place] [address] Electronically authenticated by: [id number] Y Date: 06/08/2025 16:00
--- NOTE | 2025-06-08 14:54 | ED.GENADUL1 ---
HPI HPI - General Adult General Chief complaint: Shortness of Breath/Dyspnea Stated complaint: SOB LOSS OF APPETITE WEAKNESS DEHYDRATION Time Seen by Provider: 06/08/25 14:42 Source: patient Mode of arrival: Wheelchair Limitations: no limitations History of Present Illness HPI narrative: 79-year-old female presents to the emergency department for feeling weak and short of breath. Her gives most of the history. She had been admitted here for CHF a few weeks ago and they [facility] but she refused. In the past few days she has developed the symptoms. She is a poor historian. No known fever. Her is worried that she may have her lungs filling up with fluid again and he states she has not been eating. Related Data Home Medications ?Medication ?Instructions ?Recorded ?Confirmed insulin glargine 100 unit/mL (3 20 unit subcut BEDTIME 04/25/23 06/08/25 mL) subcutaneous pen (Lantus Solostar U-100 Insulin) alprazolam 0.25 mg tablet 0.25 mg PO TID PRN anxiety 04/30/24 06/08/25 levothyroxine 125 mcg tablet 125 mcg PO .acb 04/30/24 05/28/25 insulin NPH isoph U-100 human 100 1 unit subcut ACHS 06/09/24 06/08/25 unit/mL (3 mL) subcutaneous pen (Novolin N FlexPen) biotin 10,000 mcg disintegrating 10,000 mcg PO DAILY 06/18/24 06/08/25 tablet cholecalciferol (vitamin D3) 125 125 mcg PO DAILY 06/18/24 06/08/25 mcg (5,000 unit) tablet (Vitamin D3) rivaroxaban 20 mg tablet (Xarelto) 20 mg PO DAILY 06/18/24 06/08/25 vit C 226 mg-vit E 90 mg-copper 1 cap PO BID 06/18/24 06/08/25 0.8 mg-zinc oxide-lutein 5 mg capsule (PreserVision Lutein) famotidine 20 mg tablet 20 mg PO .qhs 07/24/24 06/08/25 omeprazole 40 mg capsule,delayed 40 mg PO .acb 07/24/24 06/08/25 release buspirone 5 mg tablet 5 mg PO BID 01/25/25 06/08/25 duloxetine 20 mg capsule,delayed 20 mg PO DAILY 01/25/25 06/08/25 release furosemide 40 mg tablet 40 mg PO DAILY 05/28/25 06/08/25 Previous Rx's ?Medication ?Instructions ?Recorded diphenoxylate-atropine 2.5 1 tab PO Q6H PRN Diarrhea 7 days 01/27/25 mg-0.025 mg tablet (Lomotil) #28 tabs metoprolol tartrate 25 mg tablet 25 mg PO BID #60 tabs 05/31/25 Allergies Allergy/AdvReac Type Severity Reaction Status Date / Time Iodinated Contrast Media Allergy Intermediate Hives Verified 06/08/25 14:35 shellfish derived Allergy Intermediate Hives Verified 06/08/25 14:35 Sulfa (Sulfonamide Allergy Unknown Rash Verified 06/08/25 14:35 Antibiotics) Opioid HPI Opioid Management Most Recent Opioid Data: Last Pain Scale 0 05/31/25, 16:29 Last Pain Intensity 3 06/09/24, 13:07 Last ORT Total Score 0 05/28/25, 08:05 Last ORT Risk Category Low Risk 05/28/25, 08:05 Review of Systems ROS Narrative A ten point review of systems is negative except as noted above. [facility] Medical History (Updated 06/08/25 @ 17:36 by Elan Galan MD) CHF (congestive heart failure) ?I50.9 - Heart failure, unspecified (ICD-10) GERD without esophagitis ?K21.9 - Gastro-esophageal reflux disease without esophagitis (ICD-10) Anxiety ?F41.9 - Anxiety disorder, unspecified (ICD-10) Intermittent palpitations ?R00.2 - Palpitations (ICD-10) Acute hyperglycemia ?R73.9 - Hyperglycemia, unspecified (ICD-10) Acute kidney injury ?N17.9 - Acute kidney failure, unspecified (ICD-10) Acute on chronic clinical systolic heart failure ?I50.23 - Acute on chronic systolic (congestive) heart failure (ICD-10) Acute renal failure ?N17.9 - Acute kidney failure, unspecified (ICD-10) Hyperkalemia ?E87.5 - Hyperkalemia (ICD-10) Acute dehydration ?E86.0 - Dehydration (ICD-10) Diabetes mellitus with hyperglycemia, with long-term current use of insulin ?E11.65 - Type 2 diabetes mellitus with hyperglycemia (ICD-10) ?Z79.4 - [facility] (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 insulin (ICD-10) Paroxysmal atrial fibrillation ?I48.0 - Paroxysmal atrial fibrillation (ICD-10) Hypothyroidism (acquired) ?E03.9 - Hypothyroidism, unspecified (ICD-10) Hypertension ?I10 - Essential (primary) hypertension (ICD-10) Hypokalemia ?E87.6 - Hypokalemia (ICD-10) CHF (congestive heart failure) ?I50.9 - Heart failure, unspecified (ICD-10) Cataracts, bilateral ?H26.9 - Unspecified cataract (ICD-10) Breast cancer ?C50.919 - Malignant neoplasm of unspecified site of unspecified female breast (ICD-10) Surgical History History of cholecystectomy ?Z90.49 - Acquired absence of other specified parts of digestive tract (ICD-10) History of appendectomy ?Z90.49 - Acquired absence of other specified parts of digestive tract (ICD-10) History of hysterectomy ?Z90.710 - Acquired absence of both cervix and uterus (ICD-10) H/O lumbosacral spine surgery ?Z98.890 - Other specified postprocedural states (ICD-10) H/O bilateral mastectomy ?Z90.13 - Acquired absence of bilateral breasts and nipples (ICD-10) Family History Other Family history of CHF (congestive heart failure) Family history of cancer Family history of diabetes mellitus Family history of hypertension H/O mastectomy Social History Within the past year, how often did you have a drink containing alcohol: never Within the past year, how often did you have six or more drinks on one occasion: never Score interpretation: A score less than 3 is consistent with normal alcohol consumption. 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 Highest level of school completed/degree received: some college, no degree Do you want help with school or training: No Are you now , , , , never or living with a partner: In a typical week, how many times do you talk on the telephone with family, friends, or neighbors: twice per week How often do you get together with friends or relatives: twice per week How often do you attend congregation or gnosticist services: never Do you belong to any clubs or organizations such as congregation groups unions, fraternal or athletic groups, or school groups: no Total score: 2 Score interpretation: A score of greater than or equal to 2 indicates the lowest level of social isolation. Little interest or pleasure in doing things: not at all Feeling down, depressed, or hopeless: not at all Feel stressed/tense/nervous/anxious/difficulty sleeping: not at all Due to disability, difficulty making decisions: No Do you think of yourself as: straight/heterosexual Gender Identity: female Exam Narrative Exam Narrative: Nurses note and vital signs reviewed and patient is not hypoxic. General: The patient appears in no acute respiratory distress. Skin: Warm, dry, no pallor noted. There is no rash noted. Head: Normocephalic, atraumatic Eye: Normal conjunctiva, no drainage Ears, Nose, Mouth, and Throat: oral mucosa is moist. Nares patent. Cardiovascular: Regular Rate and Rhythm Respiratory: Patient is in no distress, no accessory muscle use, lungs are clear to auscultation, no wheezing, rales or rhonchi Back: non-tender GI: Obese and nontender Musculoskeletal: She has pitting edema in both ankles Neurological: A&O x4, normal speech Psychiatric: Cooperative Constitutional Vital Signs, click to edit/add: Last Vital Signs Temp 97.6 F 06/08/25 14:35 Pulse 58 L 06/08/25 15:50 Resp 16 06/08/25 15:50 BP 160/80 H 06/08/25 16:51 Pulse Ox 95 06/08/25 15:50 O2 Del Method Nasal Cannula 06/08/25 14:59 O2 Flow Rate 2 06/08/25 14:59 Course Vital Signs Vital signs: Vital Signs Temperature 97.6 F 06/08/25 14:35 Pulse Rate 59 L 06/08/25 14:35 Respiratory Rate 18 06/08/25 14:35 Blood Pressure 203/101 H 06/08/25 14:35 Pulse Oximetry 90 L 06/08/25 14:35 Oxygen Delivery Method Room Air 06/08/25 14:35 Temperature 97.6 F 06/08/25 14:35 Pulse Rate 58 L 06/08/25 15:50 Respiratory Rate 16 06/08/25 15:50 Blood Pressure 160/80 H 06/08/25 16:51 Pulse Oximetry 95 06/08/25 15:50 Oxygen Delivery Method Nasal Cannula 06/08/25 14:59 Oxygen Delivery Flow Rate 2 06/08/25 14:59 Medical Decision Making MDM Narrative Medical decision making narrative: Chest x-ray per radiologist shows CHF and her BNP is 12,999 which is well above her baseline. She was given IV Lasix and will be admitted. No evidence of UTI. Renal function is at her baseline. Treatment diagnosis and disposition were discussed with the patient and her . Differential Diagnosis Differential Diagnosis: CHF, pneumonia, UTI Lab Data Lab results reviewed: Yes I reviewed the patient's lab results Labs: Lab Results 06/08/25 06/08/25 06/08/25 Range/Units 15:09 15:20 16:00 WBC 8.5 (4.0-11.0) 10^3/uL RBC 3.91 L (4.20-5.40) 10^6/uL Hgb 11.4 L (12.0-16.0) g/dL Hct 35.3 L (36.0-48.0) % MCV 90.3 (81.0-99.0) fL MCH 29.2 (26.7-34.0) pg MCHC 32.3 (29.9-35.2) g/dL RDW 16.1 H (11.0-15.0) % Plt Count 291 (150-450) 10^3/uL MPV 9.8 (9.5-13.5) fL Neut % (Auto) 78.2 H (43.0-75.0) % Lymph % (Auto) 13.3 L (20.5-60.0) % [place] % (Auto) 5.2 (1.7-12.0) % Eos % (Auto) 1.9 (0.9-7.0) % Baso % (Auto) 1.2 (0.2-2.0) % Neut # (Auto) 6.6 H (1.4-6.5) 10^3/uL Lymph # (Auto) 1.1 L (1.2-3.8) 10^3/uL [place] # (Auto) 0.4 (0.3-0.8) 10^3/uL Eos # (Auto) 0.2 (0.0-0.7) 10^3/uL Baso # (Auto) 0.1 (0.0-0.1) 10^3/uL Abs Immat Gran (auto) 0.02 (0.00-0.03) 10^3/uL Imm/Tot Granulo (auto) 0.2 (0.0-0.5) % Sodium 144 (136-145) mmol/L Potassium 3.2 L (3.5-5.1) mmol/L Chloride 105 (98-107) mmol/L Carbon Dioxide 30.5 (21.0-32.0) mmol/L Anion Gap 11.7 BUN 30.0 H (7.0-18.0) mg/dL Creatinine 1.69 H (0.55-1.02) mg/dL Est GFR ( Amer) 35 L (>=60 mL/min/1.73m^2) Est GFR (Non-Af Amer) 29 L (>=60 mL/min/1.73m^2) BUN/Creatinine Ratio 17.8 Glucose 177 H (74-106) mg/dL Lactate 0.7 (0.4-2.0) mmol/L Calcium 8.7 (8.5-10.1) mg/dL Troponin I High Sens 26.7 (4.0-51.3) pg/mL NT-Pro-B Natriuret Pep 90946.0 H* (<=1800.0) pg/mL Urine Color Lt. yellow (YELLOW) Urine Clarity Clear (CLEAR) Urine pH 6.5 (5.0-9.0) Ur Specific [place] 1.020 (1.005-1.025) Urine Protein >=300 A (NEG/TRACE) mg/dL Urine Glucose (UA) 250 A (NEGATIVE) mg/dL Urine Ketones Negative (NEGATIVE) mg/dL Urine Occult Blood Moderate A (NEGATIVE) Urine Nitrite Negative (NEGATIVE) Urine Bilirubin Negative (NEGATIVE) Urine Urobilinogen 0.2 (0.2-1.0) EU/dL Ur Leukocyte Esterase Negative (NEGATIVE) Urine RBC 0-2 (0-2) #/HPF Urine WBC 2-5 A (NONE SEEN) #/HPF Ur Squamous Epith Cells Few A (NONE/RARE) #/LPF Ur Transition Epith Cell Rare A (NONE SEEN) #/LPF Urine Crystals None seen (None Seen) #/HPF Urine Bacteria Trace A (NONE SEEN) #/HPF Urine Casts Seen A (NONE SEEN) #/LPF Hyaline Casts Moderate Urine Mucus Small A (NONE SEEN) SARS-CoV-2 Ag (CV2AG) Negative (NEGATIVE) Imaging Data Chest x-ray: Radiologist's impression: ITS Impressions Chest X-Ray 06/08/25 14:52 IMPRESSION: CHF FINDINGS GROSSLY SIMILAR TO THE PRIOR CT STUDY FROM 05/30/2025. Impression dictated by: Cosme Morales Jr., D.O. 06/08/2025 4:00 PM Dictation Location: [place] [address] Electronically authenticated by: [id number] Y Date: 06/08/2025 16:00 ECG Data Attestation: I personally reviewed and interpreted this ECG as follows: (EKG on my interpretation shows sinus rhythm with rate of 57 and no acute change) Critical Care Time Critical Care Time Critical Care Time: Yes Total Critical Care Time: 35 Attestation: Due to the high probability of sudden and clinically significant deterioration in the patient's condition he/she required the highest level of my preparedness to intervene urgently I provided critical care time including documentation time, medication orders and management, reevaluation, vital sign assessment, ordering and reviewing of lab tests, ordering and reviewing of x-ray studies, and admission orders. Aggregate critical care time is 35 minutes including only time during which I was engaged in work directly related to his/her care and did not include time spent treating other patients simultaneously. Discharge Plan Discharge Chief Complaint: Shortness of Breath/Dyspnea Clinical Impression: CHF (congestive heart failure) Patient Disposition: Admitted As Inpatient Time of Disposition Decision: 17:35 Condition: Fair
[2025-06-08 15:39] LABS: Hematocrit 35.3 % (36.0-48.0); Hemoglobin 11.4 g/dL (12.0-16.0); Immature Granulocytes Abs Auto 0.02 10^3/uL (0.00-0.03); Immature Granulocytes Pct Auto 0.2 % (0.0-0.5); Lymphocytes Absolute Auto 1.1 10^3/uL (1.2-3.8); Mean Corpuscular HGB Conc 32.3 g/dL (29.9-35.2); Mean Corpuscular Hemoglobin 29.2 pg (26.7-34.0); Mean Corpuscular Volume 90.3 fL (81.0-99.0); Platelet Count 291 10^3/uL (150-450); Red Blood Count 3.91 10^6/uL (4.20-5.40); White Blood Count 8.5 10^3/uL (4.0-11.0)
[2025-06-08 15:46] LABS: SARS-CoV-2 Ag NEGATIVE (NEGATIVE)
[2025-06-08 15:46] LABS: Lactate/Lactic Acid 0.7 mmol/L (0.4-2.0)
[2025-06-08 16:02] LABS: Anion Gap 11.7; Blood Urea Nitrogen 30.0 mg/dL (7.0-18.0); Calcium 8.7 mg/dL (8.5-10.1); Carbon Dioxide 30.5 mmol/L (21.0-32.0); Chloride 105 mmol/L (98-107); Estimated GFR (African America 35 (>=60 mL/min/1.73m^2); Estimated GFR (Non-African Ame 29 (>=60 mL/min/1.73m^2); Glucose 177 mg/dL (74-106); Potassium 3.2 mmol/L (3.5-5.1); Sodium 144 mmol/L (136-145)
[2025-06-08 16:04] LABS: NT Pro B Type Natriuretic Pept 12999.0 pg/mL (<=1800.0)
[2025-06-08 16:23] LABS: Glucose Urine UA 250 mg/dL (NEGATIVE)
[2025-06-08 16:39] LABS: Cast Seen? SEEN #/LPF (NONE SEEN); Crystals Seen? None Seen #/HPF (None Seen)
[2025-06-08] MEDS: FUROSEMIDE 20 MG/2 ML VIAL IVP (18:06)
--- NOTE | 2025-06-08 19:45 | P.IMHP_ITS ---
Internal Medicine - H&P: HPI History of Present Illness Chief complaint: CHF Narrative: This is a 79-year-old female with past medical history of CHF, GERD, anxiety, type 2 diabetes, paroxysmal atrial fibrillation, CKD hypothyroidism, hypertension, cataracts, breast CA with chronic left-sided lymphedema, here for shortness of breath that has been going on for last few days. Patient was admitted recently and discharged on 05/31/2025 after she was admitted for CHF exacerbation. Patient tells me that the shortness of breath has been gotten worse over the last few days. Denies any chest pain or palpitation or nausea or vomiting or fever or chills or exposure to sick contacts. Patient's CBC was not significant. CMP showed hypokalemia of 3.2 with BUN of 30 and creatinine of 1.69. Which is similar to her baseline kidney function. Troponin x 1 was negative proBNP is 12,999 which is elevated compared to her previous value. EKG showed normal sinus rhythm with no signs of acute ischemia chest x-ray showed vascular congestion patient received 1 dose of IV 20 mg Lasix. Patient was saturating 88% on room air later on improved to 95% on 2-3 to nasal cannula. She does not have oxygen at home. Use a cart for ambulation patient lives with her . Patient had a echo done on 05/28/2025 showed global left ventricular systolic function to be hyperdynamic with EF of 65 to 70%. Right ventricular pressure and overall volume overload. Normal right severe left ventricular hypertrophy, Review of Systems ROS Status of ROS 10 or more systems reviewed and unremark able except as noted in history and below [facility] Medical History (Updated 06/08/25 @ 19:51 by Osbaldo Marlow MD) CHF (congestive heart failure) ?I50.9 - Heart failure, unspecified (ICD-10) GERD without esophagitis ?K21.9 - Gastro-esophageal reflux disease without esophagitis (ICD-10) Anxiety ?F41.9 - Anxiety disorder, unspecified (ICD-10) Intermittent palpitations ?R00.2 - Palpitations (ICD-10) Acute hyperglycemia ?R73.9 - Hyperglycemia, unspecified (ICD-10) Acute kidney injury ?N17.9 - Acute kidney failure, unspecified (ICD-10) Acute on chronic clinical systolic heart failure ?I50.23 - Acute on chronic systolic (congestive) heart failure (ICD-10) Acute renal failure ?N17.9 - Acute kidney failure, unspecified (ICD-10) Hyperkalemia ?E87.5 - Hyperkalemia (ICD-10) Acute dehydration ?E86.0 - Dehydration (ICD-10) Diabetes mellitus with hyperglycemia, with long-term current use of insulin ?E11.65 - Type 2 diabetes mellitus with hyperglycemia (ICD-10) ?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-10) Paroxysmal atrial fibrillation ?I48.0 - Paroxysmal atrial fibrillation (ICD-10) Hypothyroidism (acquired) ?E03.9 - Hypothyroidism, unspecified (ICD-10) Hypertension ?I10 - Essential (primary) hypertension (ICD-10) Hypokalemia ?E87.6 - Hypokalemia (ICD-10) CHF (congestive heart failure) ?I50.9 - Heart failure, unspecified (ICD-10) Cataracts, bilateral ?H26.9 - Unspecified cataract (ICD-10) Breast cancer ?C50.919 - Malignant neoplasm of unspecified site of unspecified female breast (ICD-10) Surgical History History of cholecystectomy ?Z90.49 - Acquired absence of other specified parts of digestive tract (ICD- 10) History of appendectomy ?Z90.49 - Acquired absence of other specified parts of digestive tract (ICD- 10) History of hysterectomy ?Z90.710 - Acquired absence of both cervix and uterus (ICD-10) H/O lumbosacral spine surgery ?Z98.890 - Other specified postprocedural states (ICD-10) H/O bilateral mastectomy ?Z90.13 - Acquired absence of bilateral breasts and nipples (ICD-10) Family History Other Family history of CHF (congestive heart failure) Family history of cancer Family history of diabetes mellitus Family history of hypertension H/O mastectomy Social History Within the past year, how often did you have a drink containing alcohol: never Within the past year, how often did you have six or more drinks on one occasion: never Score interpretation: A score less than 3 is consistent with normal alcohol consumption. 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 Highest level of school completed/degree received: some college, no degree Do you want help with school or training: No Are you now , , , , never or living with a partner: In a typical week, how many times do you talk on the telephone with family, friends, or neighbors: twice per week How often do you get together with friends or relatives: twice per week How often do you attend pentecostalism or adventist services: never Do you belong to any clubs or organizations such as pentecostalism groups unions, [email or web address] or athletic groups, or school groups: no Total score: 2 Score interpretation: A score of greater than or equal to 2 indicates the lowest level of social isolation. Little interest or pleasure in doing things: more than half the days Feeling down, depressed, or hopeless: not at all Feel stressed/tense/nervous/anxious/difficulty sleeping: not at all Due to disability, difficulty making decisions: No Do you think of yourself as: straight/heterosexual Gender Identity: female Meds Home Medications and Allergies Home Medications ?Medication ?Instructions ?Recorded ?Confirmed ?Type insulin glargine 100 unit/mL (3 20 unit subcut BEDTIME 04/25/23 06/08/25 History mL) subcutaneous pen (Lantus Solostar U-100 Insulin) alprazolam 0.25 mg tablet 0.25 mg PO TID PRN anxiety 0 04/30/24 06/08/25 History levothyroxine 125 mcg tablet 125 mcg PO .acb 04/30/24 05/28/25 History insulin NPH isoph U-100 human 100 1 unit subcut ACHS 0 06/09/24 06/08/25 History unit/mL (3 mL) subcutaneous pen (Novolin N FlexPen) biotin 10,000 mcg disintegrating 10,000 mcg PO DAILY 0 06/18/24 06/08/25 History tablet cholecalciferol (vitamin D3) 125 125 mcg PO DAILY 06/0406/08/25 History mcg (5,000 unit) tablet (Vitamin D3) rivaroxaban 20 mg tablet (Xarelto) 20 mg PO DAILY 06/0406/08/25 History vit C 226 mg-vit E 90 mg-copper 1 cap PO BID 06/18/24 06/08/25 History 0.8 mg-zinc oxide-lutein 5 mg capsule (PreserVision Lutein) famotidine 20 mg tablet 20 mg PO .qhs 07/24/2406/08 History omeprazole 40 mg capsule,delayed 40 mg PO .acb 4 06/08/25 History release buspirone 5 mg tablet 5 mg PO BID 01/25/25 5 History duloxetine 20 mg capsule,delayed 20 mg PO DAILY 06/08/25 History release diphenoxylate-atropine 2.5 1 tab PO Q6H PRN Diarrhea 7 days 01/27/25 06/08/25 Rx mg-0.025 mg tablet (Lomotil) #28 tabs furosemide 40 mg tablet 40 mg PO DAILY 05/28/2505/13 History metoprolol tartrate 25 mg tablet 25 mg PO BID #60 tabs 05/31/25 06/08/25 Rx Allergies Allergy/AdvReac Type Severity Reaction Status Date / Time Iodinated Contrast Media Allergy Intermediate Hives Verified 06/08/25 14:35 shellfish derived Allergy Intermediate Hives Verified 06/08/25 14:35 Sulfa (Sulfonamide Allergy Unknown Rash Verified 06/08/25 14:35 Antibiotics) Exam Narrative Exam Narrative: General: pt is awake and alert. oriented to place, time and person, morbidly obese, very pleasant but ill-appearing HEENT: [place] conjunctiva and NL buccal mucosa, normocephalic atraumatic Neck: Supple, no tenderness Endocrine: No Thyromegaly. Vascular: No JVD or carotid bruit. Lymphatic: No cervical lymphadenopathy. Chest: Decreased bilateral air entry with bilateral crackles no wheezes. Patient saturating 93 to 95% on 2 L nasal cannula. Not in respiratory distress. Heart RRR, no extra sound or murmur. Abd: Soft, no tenderness, no rebound and no rigidity. No signs of acute LE: No cyanosis or clubbing, no varices. 2+ pitting edema bilateral lower extremity, intact Peripheral Pulses Left arm is a chronically swollen since she had mastectomy. Neuro: A A O. Nl speech, comprehension and attention. Nl and symetrical motor and tone examination through out Constitutional Vital Signs, click to edit/add: Last Vital Signs Temp 97.5 F L 06/08/25 19:19 Pulse 62 06/08/25 19:19 Resp 20 06/08/25 19:19 BP 200/111 H 06/08/25 19:19 Pulse Ox 97 06/08/25 19:19 O2 Del Method Nasal Cannula 06/08/25 19:19 O2 Flow Rate 2 06/08/25 19:19 Internal Medicine - H&P: Reslt Labs Labs: Short CBC 06/08/25 Range/Units 15:09 WBC 8.5 (4.0-11.0) 10^3/uL Hgb 11.4 L (12.0-16.0) g/dL Hct 35.3 L (36.0-48.0) % Plt Count 291 (150-450) 10^3/uL BMP 06/08/25 15:09 Sodium 144 Potassium 3.2 L Chloride 105 Carbon Dioxide 30.5 BUN 30.0 H Creatinine 1.69 H Glucose 177 H Calcium 8.7 Urine 06/08/25 Range/Units 16:00 Urine Color Lt. yellow (YELLOW) Urine Clarity Clear (CLEAR) Urine pH 6.5 (5.0-9.0) Ur Specific [place] 1.020 (1.005-1.025) Urine Protein >=300 A (NEG/TRACE) mg/dL Urine Glucose (UA) 250 A (NEGATIVE) mg/dL Urinary Catheter Management Urinary Catheter Management Urethral: Cath placed during this visit: yes Urethral indwelling: Yes Reason for continuing: measure accurate output Insertion date: 06/08/25 Insertion time: 16:00 Assessment and Plan Assessment and Plan (1) Acute hypoxic respiratory failure: (2) CHF exacerbation: Plan Acute Hypoxic respiratory failure due to Acute Diastolic CHF exacerbation (NYHA Class III, Stage C) CKD, no evidence of CARMELO Hypertensive Urgency Debiity with multiple re-admissions, needing higher level of care -Start Lasix 40 mg IV BID -Strict I/Os, pt has chiang in place -Dailky weights -1.5 liters fluid restriction -No need to repeat echo -PT/OT eval -I reconciled pt's medications accordingly -Full code -Discussed the plan with the pt in details, answered all her questions
[2025-06-08] MEDS: BUSPIRONE HCL 10 MG TABLET 5 MG PO (22:12)
[2025-06-08] MEDS: METOPROLOL TARTRATE 25 MG TABLET PO (22:12)
[2025-06-08] MEDS: FAMOTIDINE 20 MG TABLET PO (22:12)
[2025-06-08] MEDS: VITS A,C,E/LUTEIN/MINERALS 1 TABLET 1 TAB PO (22:13)
[2025-06-08] MEDS: INSULIN GLARGINE 300 UNIT/3 ML INSULN.PEN 20 UNIT SQ (22:13)
[2025-06-08] MEDS: HYDRALAZINE HCL 20 MG/ML VIAL 10 MG IVP (23:49)
[2025-06-09] VITALS (19 sets, daily range): BP systolic 147–189; BP diastolic 70–79; PULSE 61–72; TEMP 36.4–36.8; O2SAT 94–96
[2025-06-09] MEDS: HYDRALAZINE HCL 20 MG/ML VIAL 10 MG IVP (04:14)
[2025-06-09 05:58] LABS: Hematocrit 31.8 % (36.0-48.0); Hemoglobin 10.4 g/dL (12.0-16.0); Immature Granulocytes Abs Auto 0.03 10^3/uL (0.00-0.03); Immature Granulocytes Pct Auto 0.4 % (0.0-0.5); Lymphocytes Absolute Auto 1.4 10^3/uL (1.2-3.8); Mean Corpuscular HGB Conc 32.7 g/dL (29.9-35.2); Mean Corpuscular Hemoglobin 29.3 pg (26.7-34.0); Mean Corpuscular Volume 89.6 fL (81.0-99.0); Platelet Count 222 10^3/uL (150-450); Red Blood Count 3.55 10^6/uL (4.20-5.40); White Blood Count 8.3 10^3/uL (4.0-11.0)
[2025-06-09] MEDS: PANTOPRAZOLE SODIUM 40 MG TABLET.DR PO (06:09)
[2025-06-09] MEDS: FUROSEMIDE 40 MG/4 ML VIAL IVP ×2 (06:09→17:55)
[2025-06-09 06:34] LABS: Alanine Aminotransferase 14 U/L (14-59); Albumin Globulin Ratio 0.3; Albumin Level 1.7 g/dL (3.4-5.0); Alkaline Phosphatase 104 U/L (46-116); Anion Gap 12.9; Aspartate Amino Transferase 13 U/L (15-37); Blood Urea Nitrogen 28.0 mg/dL (7.0-18.0); Calcium 8.1 mg/dL (8.5-10.1); Carbon Dioxide 29.8 mmol/L (21.0-32.0); Chloride 106 mmol/L (98-107); Estimated GFR (African America 40 (>=60 mL/min/1.73m^2); Estimated GFR (Non-African Ame 33 (>=60 mL/min/1.73m^2); Globulin 4.9 g/dL; Glucose 79 mg/dL (74-106); Magnesium 1.3 mg/dL (1.8-2.4); Sodium 146 mmol/L (136-145); Total Protein 6.6 g/dL (6.4-8.2)
[2025-06-09 06:35] LABS: Potassium 2.7 mmol/L (3.5-5.1)
[2025-06-09] MEDS: CHOLECALCIFEROL (VITAMIN D3) 125 MCG/5,000 UNIT TABLET PO (08:50)
[2025-06-09] MEDS: BUSPIRONE HCL 10 MG TABLET 5 MG PO ×2 (08:50→20:48)
[2025-06-09] MEDS: METOPROLOL TARTRATE 25 MG TABLET PO ×2 (08:50→20:48)
[2025-06-09] MEDS: VITS A,C,E/LUTEIN/MINERALS 1 TABLET 1 TAB PO ×2 (08:51→20:48)
[2025-06-09] MEDS: DIPHENOXYLATE HCL 2.5 MG/ATROPINE 0.025 MG TABLET 1 TAB PO (08:51)
[2025-06-09] MEDS: DULOXETINE HCL 20 MG CAPSULE.DR PO (08:51)
--- NOTE | 2025-06-09 09:00 | CM.NOTE ---
Rounds made with Dr. Marlow, discussed with pt diagnosis and plan of care. at bedside, discussed possible skilled therapy at discharge. PT will evaluate pt this am for further recommendations.
--- NOTE | 2025-06-09 09:54 | P.PN_ITS ---
Progress Note: Subjective Subjective Interval history: Pt seen and examined at bedside. No evens overnight. Labs reviewed and electrolytes repleted. Urine output is satisfactory. Pt working with PT. at bedside. saturating >90% on 2 liters nasal cannula. Swelling improving. Exam Narrative Exam Narrative: General: pt is awake and alert. oriented to place, time and person, morbidly obese, very pleasant but ill-appearing HEENT: [place] conjunctiva and NL buccal mucosa, normocephalic atraumatic Neck: Supple, no tenderness Endocrine: No Thyromegaly. Vascular: No JVD or carotid bruit. Lymphatic: No cervical lymphadenopathy. Chest: Decreased bilateral air entry with bilateral crackles no wheezes. Patient saturating 93 to 95% on 2 L nasal cannula. Not in respiratory distress. Heart RRR, no extra sound or murmur. Abd: Soft, no tenderness, no rebound and no rigidity. No signs of acute abdomen LE: No cyanosis or clubbing, no varices. 2+ pitting edema bilateral lower extremity, intact Peripheral Pulses Left arm is a chronically swollen since she had mastectomy Neuro: A A O. Nl speech, comprehension and attention. Nl and symetrical motor and tone examination through out Constitutional Vital Signs, click to edit/add: Last Vital Signs Temp 98.2 F 06/09/25 08:52 Pulse 64 06/09/25 08:52 Resp 18 06/09/25 08:52 BP 157/76 H 06/09/25 08:52 Pulse Ox 61 L 06/09/25 09:51 O2 Del Method Room Air 06/09/25 08:52 O2 Flow Rate 2 06/09/25 08:52 Progress Note: Objective Labs Labs: Short CBC 06/08/25 06/09/25 Range/Units 15:09 05:05 WBC 8.5 8.3 (4.0-11.0) 10^3/uL Hgb 11.4 L 10.4 L (12.0-16.0) g/dL Hct 35.3 L 31.8 L (36.0-48.0) % Plt Count 291 222 (150-450) 10^3/uL BMP 06/08/25 06/09/25 15:09 05:05 Sodium 144 146 H Potassium 3.2 L 2.7 L* Chloride 105 106 Carbon Dioxide 30.5 29.8 BUN 30.0 H 28.0 H Creatinine 1.69 H 1.53 H Glucose 177 H 79 Calcium 8.7 8.1 L Liver Function 06/09/25 Range/Units 05:05 Total Bilirubin 0.4 (0.2-1.0) mg/dL AST 13 L (15-37) U/L ALT 14 (14-59) U/L Alkaline Phosphatase 104 (46-116) U/L Albumin 1.7 L (3.4-5.0) g/dL Urine 06/08/25 Range/Units 16:00 Urine Color Lt. yellow (YELLOW) Urine Clarity Clear (CLEAR) Urine pH 6.5 (5.0-9.0) Ur Specific [place] 1.020 (1.005-1.025) Urine Protein >=300 A (NEG/TRACE) mg/dL Urine Glucose (UA) 250 A (NEGATIVE) mg/dL Progress Note: A&P Assessment and Plan (1) Acute hypoxic respiratory failure: (2) CHF exacerbation: Plan Acute Hypoxic respiratory failure due to Acute Diastolic CHF exacerbation (NYHA Class III, Stage C) CKD, no evidence of CARMELO Hypertensive Urgency Debility with multiple re-admissions, needing higher level of care Hypokalemia, Hypomagnesemia -Start Lasix 40 mg IV BID -Strict I/Os, pt has chiang in place -Dailky weights -1.5 liters fluid restriction -No need to repeat echo -PT/OT eval -I reconciled pt's medications accordingly -Full code -Discussed the plan with the pt in details, answered all her questions 06/09/2025 patient diuresing well and tolerating IV diuresis with expected and output. Has no issues overnight. Kidney function were to be improving actually with IV diuresis however did have some hyponatremia which I think due to diuresis as well as hypokalemia and hypomagnesemia. I repleted her potassium with IV potassium 40 mill equivalent as well as repleted her magnesium with IV magnesium sulfate 4 g. Discussed with her the plan she is in agreement that she will need another day of IV diuresis that she is still significantly overloaded. Also we will try to wean down her oxygen and see if she will need oxygen on discharge. Given the patient debility PT and OT were consulted, they worked with the patient and commended rehab however the patient refused to go to SNF today. Will try to care about that later today. I discussed the plan with her and details with her and her . Answered all her questions. Urinary Catheter Management Urinary Catheter Management Urethral: Cath placed during this visit: yes Urethral indwelling: Yes Reason for continuing: measure accurate output Insertion date: 06/08/25 Insertion time: 16:00
--- NOTE | 2025-06-09 10:26 | SWNOTE1 ---
SW stopped in to discuss dc planning with pt. Pt's in room as well. Pt voiced she was feeling much better than yesterday. Voiced she was having trouble breathing yesterday. Pt also voiced she was doing well at home. SW did let pt know that Dr. Cuevas's office called SW last week to see if we set up home health at discharge from her previous hospital stay. SW did remind pt and that we did offer SNF and HH services last stay, but pt had refused. Pt and are not sure if Dr. Cuevas's office had set up any home health services. Pt's voiced she was just at the office 2 days ago and they had not received any calls from a home health agency. SW did ask pt if she worked with therapy today. Pt and voiced she did. stated that they wanted her to walk to chair, but pt did not want to at this time. SW asked if they spoke to her about a short term rehab stay? Pt's voiced they did. Pt voiced she does not want to go to halfway facility for rehab. She wants to be at home. SW did explain to pt the benefits of going skilled. SW also let pt know that it is short term and if pt does not like it, she can leave at any time. Pt voiced she does not want to and she wants to return home. SW did offer the home health services to come in. Pt voiced she has a home exercise program and her got her small exercise bike that she can use. She stated she has to clean out the area for it. SW spoke to pt about the benefits of having home health come in, and this would help prevent her from returning to hospital. Pt is not agreeable to home health at this time. Pt is alright with SW calling Dr. Cuevas's office to speak with nurse. SW to follow as needed. At this time pt is refusing SNF and refusing HH services.
[2025-06-09] MEDS: MAGNESIUM SULFATE IN WATER 4 GM/100 ML PIGGYBACK IV (10:28)
[2025-06-09] MEDS: LEVOTHYROXINE SODIUM 125 MCG TABLET PO (10:30)
[2025-06-09] MEDS: POTASSIUM CHLORIDE 40 MEQ in 0.9 % SODIUM CHLORIDE 250 ML 67.5 MEQ IV (10:30)
--- NOTE | 2025-06-09 10:34 | SWNOTE1 ---
SW reviewed therapy notes and PT/OT recommend SNF. Pt is refusing at this time.
--- NOTE | 2025-06-09 10:38 | SWNOTE1 ---
SW called and left message for Dr. Cuevas's nurse.
--- NOTE | 2025-06-09 13:46 | SWNOTE1 ---
SW received a message from [facility]. They did receive referral for pt from Dr. Morales office. They have not been in home to see patient yet as she is in hospital. SW to speak with pt to confirm it is alright to send updates.
--- NOTE | 2025-06-09 14:06 | SWNOTE1 ---
SW stopped back in to speak with pt and let her know that SW received a call from [facility] and Dr. Cuevas did set her up with [facility], they just have not made it in yet to see her. SW asked permission to send information to [facility]? Initially pt was hesitant. SW did let her know that once she is discharged from hospital, [facility] will want to come in to home and see her and assist with transition home. SW did let her know that if she does not want them in after 1 or 2 visits, she can request they stop coming. Pt is agreeable to have SW update [facility]. SW faxed face sheet, physician notes, and PT/OT notes to [facility].
--- NOTE | 2025-06-09 14:09 | SWNOTE1 ---
Important Message from [employer] reviewed and discussed with patient. Pt. verbalized understanding and signed the form. Original given to patient and copy placed in patient?s chart.
[2025-06-09] MEDS: NYSTATIN 15 GM POWDER 1 APPLIC TOPICAL ×2 (16:03→20:52)
[2025-06-09] MEDS: POTASSIUM CHLORIDE 20 MEQ in 0.9 % SODIUM CHLORIDE 250 ML 67.5 MEQ IV (17:55)
[2025-06-09] MEDS: RIVAROXABAN 10 MG TABLET 20 MG PO (17:55)
[2025-06-09] MEDS: FAMOTIDINE 20 MG TABLET PO (20:48)
[2025-06-09] MEDS: ALPRAZOLAM 0.25 MG TABLET PO (20:48)
[2025-06-10] VITALS (11 sets, daily range): BP systolic 150–175; BP diastolic 75–84; PULSE 61–75; TEMP 36.3–36.6; O2SAT 87–95
[2025-06-10] MEDS: LEVOTHYROXINE SODIUM 125 MCG TABLET PO (05:01)
[2025-06-10] MEDS: FUROSEMIDE 40 MG/4 ML VIAL IVP (05:01)
[2025-06-10] MEDS: PANTOPRAZOLE SODIUM 40 MG TABLET.DR PO (05:01)
[2025-06-10 05:43] LABS: Hematocrit 31.3 % (36.0-48.0); Hemoglobin 10.1 g/dL (12.0-16.0); Immature Granulocytes Abs Auto 0.03 10^3/uL (0.00-0.03); Immature Granulocytes Pct Auto 0.3 % (0.0-0.5); Lymphocytes Absolute Auto 1.4 10^3/uL (1.2-3.8); Mean Corpuscular HGB Conc 32.3 g/dL (29.9-35.2); Mean Corpuscular Hemoglobin 29.6 pg (26.7-34.0); Mean Corpuscular Volume 91.8 fL (81.0-99.0); Platelet Count 248 10^3/uL (150-450); Red Blood Count 3.41 10^6/uL (4.20-5.40); White Blood Count 9.0 10^3/uL (4.0-11.0)
[2025-06-10 06:03] LABS: Alanine Aminotransferase 14 U/L (14-59); Albumin Globulin Ratio 0.4; Albumin Level 1.7 g/dL (3.4-5.0); Alkaline Phosphatase 96 U/L (46-116); Anion Gap 10.8; Aspartate Amino Transferase 15 U/L (15-37); Blood Urea Nitrogen 30.0 mg/dL (7.0-18.0); Calcium 8.2 mg/dL (8.5-10.1); Carbon Dioxide 30.5 mmol/L (21.0-32.0); Chloride 108 mmol/L (98-107); Estimated GFR (African America 33 (>=60 mL/min/1.73m^2); Estimated GFR (Non-African Ame 27 (>=60 mL/min/1.73m^2); Globulin 4.6 g/dL; Glucose 117 mg/dL (74-106); Magnesium 2.0 mg/dL (1.8-2.4); Potassium 3.3 mmol/L (3.5-5.1); Sodium 146 mmol/L (136-145); Total Protein 6.3 g/dL (6.4-8.2)
[2025-06-10] MEDS: AMLODIPINE BESYLATE 5 MG TABLET PO (08:33)
[2025-06-10] MEDS: POTASSIUM CHLORIDE 10 MEQ ER TABLET 20 MEQ PO (08:33)
[2025-06-10] MEDS: BUSPIRONE HCL 10 MG TABLET 5 MG PO (08:34)
[2025-06-10] MEDS: CHOLECALCIFEROL (VITAMIN D3) 125 MCG/5,000 UNIT TABLET PO (08:34)
[2025-06-10] MEDS: DULOXETINE HCL 20 MG CAPSULE.DR PO (08:34)
[2025-06-10] MEDS: VITS A,C,E/LUTEIN/MINERALS 1 TABLET 1 TAB PO (08:34)
[2025-06-10] MEDS: FUROSEMIDE 20 MG/2 ML VIAL IVP (08:34)
[2025-06-10] MEDS: METOPROLOL TARTRATE 25 MG TABLET PO (08:34)
--- NOTE | 2025-06-10 08:56 | PM.DS1 ---
DS: Providers Provider Date of admission: 06/08/25 18:46 Primary care physician: Theodora Cuevas MD Consults: 06/08/25 19:57 Occupational Therapy Eval and Treat Routine Reason for consultation: placement Physical Therapy Eval and Treat Routine Reason for consultation: Placement Discharging clinician: Osbaldo Marlow Anticipated date of discharge: 06/10/25 DS: Diagnosis Discharge Diagnosis (1) Acute hypoxic respiratory failure: (2) CHF exacerbation: DS: Summary Hospital Course Hospital Course: This is a 79-year-old female with past medical history of CHF, GERD, anxiety, type 2 diabetes, paroxysmal atrial fibrillation, CKD hypothyroidism, hypertension, cataracts, breast CA with chronic left-sided lymphedema, here for shortness of breath that has been going on for last few days. Patient was admitted recently and discharged on 05/31/2025 after she was admitted for CHF exacerbation. Patient tells me that the shortness of breath has been gotten worse over the last few days. Denies any chest pain or palpitation or nausea or vomiting or fever or chills or exposure to sick contacts. Patient's CBC was not significant. CMP showed hypokalemia of 3.2 with BUN of 30 and creatinine of 1.69. Which is similar to her baseline kidney function. Troponin x 1 was negative proBNP is 12,999 which is elevated compared to her previous value. EKG showed normal sinus rhythm with no signs of acute ischemia chest x-ray showed vascular congestion patient received 1 dose of IV 20 mg Lasix. Patient was saturating 88% on room air later on improved to 95% on 2-3 to nasal cannula. She does not have oxygen at home. Use a cart for ambulation patient lives with her . Patient had a echo done on 05/28/2025 showed global left ventricular systolic function to be hyperdynamic with EF of 65 to 70%. Right ventricular pressure and overall volume overload. Normal right severe left ventricular hypertrophy, Acute Hypoxic respiratory failure due to Acute Diastolic CHF exacerbation (NYHA Class III, Stage C) CKD, no evidence of CARMELO Hypertensive Urgency Debiity with multiple re-admissions, needing higher level of care -Start Lasix 40 mg IV BID -Strict I/Os, pt has chiang in place -Dailky weights -1.5 liters fluid restriction -No need to repeat echo -PT/OT eval -I reconciled pt's medications accordingly -Full code -Discussed the plan with the pt in details, answered all her questions 06/09/2025 patient diuresing well and tolerating IV diuresis with expected and output. Has no issues overnight. Kidney function were to be improving actually with IV diuresis however did have some hyponatremia which I think due to diuresis as well as hypokalemia and hypomagnesemia. I repleted her potassium with IV potassium 40 mill equivalent as well as repleted her magnesium with IV magnesium sulfate 4 g. Discussed with her the plan she is in agreement that she will need another day of IV diuresis that she is still significantly overloaded. Also we will try to wean down her oxygen and see if she will need oxygen on discharge. Given the patient debility PT and OT were consulted, they worked with the patient and commended rehab however the patient refused to go to SNF today. Will try to care about that later today. I discussed the plan with her and details with her and her . Answered all her questions. 06/10/2025 Pt diuresing well, potassium repleted, kidney function at baseline Cr of 1.8, swelling is much better. She will need formal oxygen assessment. She will need CMP in 2 days and follow up with PCP in 5-7 days. Everything was set up. Discussed with her in details the plan. Answered her questions. PT/OT skyler saw the pt recommended SNF, unfortunately pt refused that despite speaking to her multiple times, she accepted to go for home health. Still, pt is at high risk of readmission. Status at Discharge Overall status at discharge: patient is back to baseline Time Spent with Patient Time attestation: Total time spent providing and/or coordinating discharge services: Exam Narrative Exam Narrative: General: pt is awake and alert. oriented to place, time and person, morbidly obese, very pleasant but ill-appearing HEENT: [place] conjunctiva and NL buccal mucosa, normocephalic atraumatic Neck: Supple, no tenderness Endocrine: No Thyromegaly. Vascular: No JVD or carotid bruit. Lymphatic: No cervical lymphadenopathy. Chest: Decreased bilateral air entry with bilateral crackles no wheezes. Patient saturating 93 to 95% on 2 L nasal cannula. Not in respiratory distress. Heart RRR, no extra sound or murmur. Abd: Soft, no tenderness, no rebound and no rigidity. No signs of acute abdomen LE: No cyanosis or clubbing, no varices. 1+ pitting edema bilateral lower extremity, intact Peripheral Pulses, improved significantly compared to admission Left arm is a chronically swollen since she had mastectomy Neuro: A A O. Nl speech, comprehension and attention. Nl and symetrical motor and tone examination through out Constitutional Vital Signs, click to edit/add: Last Vital Signs Temp 97.9 F 06/10/25 08:02 Pulse 72 06/10/25 08:02 Resp 20 06/10/25 08:02 BP 150/83 H 06/10/25 08:33 Pulse Ox 95 06/10/25 08:02 O2 Del Method Room Air, Nasal Cannula 06/10/25 08:02 O2 Flow Rate 2 06/10/25 05:08 DS: Data Data Completed and Pending Labs on day of discharge: Labs from last 24 hours 06/10/25 06/09/25 06/09/25 05:03 16:10 12:18 WBC 9.0 RBC 3.41 L Hgb 10.1 L Hct 31.3 L MCV 91.8 MCH 29.6 MCHC 32.3 RDW 16.4 H Plt Count 248 MPV 10.0 Neut % (Auto) 75.9 H Lymph % (Auto) 15.0 L [place] % (Auto) 5.6 Eos % (Auto) 2.1 Baso % (Auto) 1.1 Neut # (Auto) 6.8 H Lymph # (Auto) 1.4 [place] # (Auto) 0.5 Eos # (Auto) 0.2 Baso # (Auto) 0.1 Abs Immat Gran (auto) 0.03 Imm/Tot Granulo (auto) 0.3 Sodium 146 H Potassium 3.3 L Chloride 108 H Carbon Dioxide 30.5 Anion Gap 10.8 BUN 30.0 H Creatinine 1.81 H Est GFR ( Amer) 33 L Est GFR (Non-Af Amer) 27 L BUN/Creatinine Ratio 16.6 Glucose 117 H Calcium 8.2 L Phosphorus 4.4 Magnesium 2.0 Total Bilirubin 0.4 AST 15 ALT 14 Alkaline Phosphatase 96 Total Protein 6.3 L Albumin 1.7 L Globulin 4.6 Albumin/Globulin Ratio 0.4 POC Glucose 99 95 Discharge Plan Discharge Disposition: Home Health Service Condition: Fair Discharge Medications: New amlodipine 5 mg Tablet 5 mg PO QD 30 Days Qty: 30 0RF Continued insulin glargine [Lantus Solostar U-100 Insulin] 100 unit/mL (3 mL) insulin pen 20 unit SUBCUT BEDTIME levothyroxine 125 mcg tablet 125 mcg PO .acb alprazolam 0.25 mg tablet 0.25 mg PO TID PRN (Reason: anxiety) Patient Comments: 0.25mg PO TID PRN for anxiety buspirone 5 mg tablet 5 mg PO BID duloxetine 20 mg capsule,delayed release(DR/EC) 20 mg PO DAILY diphenoxylate-atropine [Lomotil] 2.5-0.025 mg Tablet 1 tab PO Q6H PRN (Reason: Diarrhea) 7 Days Qty: 28 0RF furosemide 40 mg tablet 40 mg PO DAILY metoprolol tartrate 25 mg Tablet 25 mg PO BID Qty: 60 2RF Xarelto 20 mg tablet 20 mg PO DAILY Rx Instructions: must administer with evening meal PreserVision Lutein 226-90-0.8-5 mg capsule 1 cap PO BID cholecalciferol (vitamin D3) [Vitamin D3] 125 mcg (5,000 unit) tablet 125 mcg PO DAILY Novolin N FlexPen 100 unit/mL (3 mL) insulin pen 1 unit SUBCUT AC Patient Comments: (if BLOOD SUGAR is BETWEEN 150-199 INJECT 3 (THREE) UNITS, if BETWEEN 200-249 INJECT FOUR UNITS, if BETWEEN 250-299 INJECT 7 (SEVEN) UNITS, if BETWEEN 300-349 INJECT TEN UNITS, if BETWEEN 350-399 INJECT 12 UNITS, if 400 or great INJECT 14 UNITS) Rx Instructions: SLIDING SCALE famotidine 20 mg tablet 20 mg PO .qhs omeprazole 40 mg capsule,delayed release(DR/EC) 40 mg PO .acb Discontinued biotin 10,000 mcg tablet,disintegrating 10,000 mcg PO DAILY Print Language: Stateless Forms: Portal Instructions
[2025-06-10] MEDS: NYSTATIN 15 GM POWDER 1 APPLIC TOPICAL (09:00)
--- NOTE | 2025-06-10 09:10 | CM.NOTE ---
Rounds made with Dr. Marlow, pt will discharge to home today with [facility]. Pt will have chem 14 on Sunday and f/u with PCP next week. Pt will have андрей D/C'yamil.
--- NOTE | 2025-06-10 09:41 | SWNOTE1 ---
BIJAL spoke to case management and pt will need Chem 14 lab draw done on Sunday, BIJAL to check if [facility] can complete this. BIJAL called [facility] and spoke to Siobhan and she voiced as long as patient has other needs, such as PT/OT, then they are able to complete lab draw. BIJAL to send orders. DC med rec, dc summary, and CRF faxed to [facility].
--- NOTE | 2025-06-10 10:50 | SWNOTE1 ---
SW received a message from nursing and pt had a walk test completed and does qualify for home oxygen. SW went back and spoke with pt, she is agreeable to this. Pt does not have preference on home oxygen company. BIJAL updated case management and nurse to notify Dr. Marlow in regards to pt qualifying for home oxygen.
--- NOTE | 2025-06-10 11:49 | SWNOTE1 ---
BIJAL sent referral to [facility]. Referral included face sheet, walk test, dc summary, and prescription for oxygen.
--- NOTE | 2025-06-10 13:05 | SWNOTE1 ---
BIJAL called and spoke to Yamilet at [facility]. They have received and are processing order, Yamilet voiced all looks good. BIJAL took patient a tank and provided her with a number to call once she arrives home. BIJAL let her know it is for 2 liters when ambulating.
--- NOTE | 2025-06-11 14:24 | CM.DCFOLLOWU ---
Person spoke with:patient How are you feeling?well How is your pain?none Did you understand your discharge instructions?yes Do you have any questions about your discharge instructions?no Were you given any prescriptions at discharge?yes Were you able to get your prescriptions filled?yes Do you understand how to take your medications as ordered?yes Do you have any questions about your follow up appointment and do you plan to keep your follow up appointment?no questions, will follow up Is there anything else that you would like to discuss?no Questions/Comments/Concerns/Other:none
[2025-06-13 03:27] LABS: A. calcoaceticus-baumannii Cpx NOT DETECTED (NOT DETECTE); Bacteroides fragilis NOT DETECTED (NOT DETECTE); Candida auris NOT DETECTED (NOT DETECTE); Candida glabrata NOT DETECTED (NOT DETECTE); Enterobacterales NOT DETECTED (NOT DETECTE); Enterococcus faecalis NOT DETECTED (NOT DETECTE); Enterococcus faecium NOT DETECTED (NOT DETECTE); Klebsiella aerogenes NOT DETECTED (NOT DETECTE); Klebsiella pneumoniae group NOT DETECTED (NOT DETECTE); Proteus spp. NOT DETECTED (NOT DETECTE); Salmonella spp. NOT DETECTED (NOT DETECTE); Serratia marcescens NOT DETECTED (NOT DETECTE); Staphylococcus epidermidis NOT DETECTED (NOT DETECTE); Staphylococcus lugdunensis NOT DETECTED (NOT DETECTE); Staphylococcus spp. NOT DETECTED (NOT DETECTE); Stenotrophomonas maltophilia NOT DETECTED (NOT DETECTE); Streptococcus pyogenes NOT DETECTED (NOT DETECTE); Streptococcus spp. NOT DETECTED (NOT DETECTE)
[2025-06-13 05:08] LABS: Source Blood
== END 2025-06-10 13:23 | disposition home health service (06) | DRG 291 ==
LOC: ER 17:36 → MS 18:52
PROVIDERS: Admitting Provider Student in an Organized Health Care Education/Training Program; Emergency Provider Emergency Medicine; PCP Family Medicine; Visit Provider Student in an Organized Health Care Education/Training Program
DX: I13.0 Hypertensive heart and chronic kidney disease with heart failure and stage 1 through stage 4 chronic kidney disease, or unspecified chronic kidney disease (principal); I50.33 Acute on chronic diastolic (congestive) heart failure; J96.01 Acute respiratory failure with hypoxia; Z68.41 Body mass index [BMI] 40.0-44.9, adult; N18.9 Chronic kidney disease, unspecified; I16.0 Hypertensive urgency; E66.01 Morbid (severe) obesity due to excess calories; Z85.3 Personal history of malignant neoplasm of breast; Z90.13 Acquired absence of bilateral breasts and nipples; I89.0 Lymphedema, not elsewhere classified; E87.6 Hypokalemia; E83.42 Hypomagnesemia; R53.81 Other malaise; K21.9 Gastro-esophageal reflux disease without esophagitis; I48.0 Paroxysmal atrial fibrillation; E03.9 Hypothyroidism, unspecified; Z79.4 Long term (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 insulin; Z79.890 Hormone replacement therapy; Z79.899 Other long term (current) drug therapy; Z90.49 Acquired absence of other specified parts of digestive tract; Z90.710 Acquired absence of both cervix and uterus; Z99.81 Dependence on supplemental oxygen
CPT/HCPCS: 36415; 71045; 80048; 80053; 81001; 83605; 83735; 83880; 84100; 84484; 85025; 87040; 87150; 87811; 93005; 96374; 97110; 97162; 97165; 97535; 99285; C1887; J0360; J1938; J3475; J3480

== ENCOUNTER 2025-06-19 04:37 | Observation (INO) | payer MEDICARE, SELFPAY ==
--- OUTSIDE RECORDS SUMMARY | 2012-02-02 09:30 | XMS_ITS | Continuity of Care Document ---
Author Organization [email or web address] [facility] Address [address] [place] [address] Phone Care Team Providers Care Braille And Talking Books Clerk Name Role Phone Frandy Addison MD Unavailable Unavailable Procedures Procedure Date OFFICE/OUTPATIENT VISIT, [facility] Advance Directives Directive Yes / No Effective Date File Name No Information Encounters Encounter Description Practice Location Reason(s) For Visit Diagnoses Date Provider Providers Copied on Encounter OFFICE/OUTPATI ENT VISIT, [facility] [facility], [address], [place], [place], [id number], [place] tel:[phone] [facility] No Information Cyn Wise. [address], [id number], [place]. tel:[phone] Referring Provider: Frandy Bowman, [address] [facility] [address], [place], [address]. tel:[phone] Family History Family Member Type Diagnosis Age At Onset No Information Payers Payer name Insurance type Covered green party ID Authoriza tion(s) [facility] CI [id number] Social History Type Description Quantity Date Captured [...]
--- OUTSIDE RECORDS SUMMARY | 2012-05-09 08:45 | XMS_ITS | Continuity of Care Document ---
Author Organization [facility] Address [address] [place] [address] Phone Care Team Providers Care Lumber Planer Name Role Phone Cliff Lance LITTLE Unavailable Unavailable Advance Directives Directive Yes / No Effective Date File Name No Information Encounters Encounter Description Practice Location Reason(s) For Visit Diagnoses Date Provider Providers Copied on Encounter [facility] , [address] [place] [address], [id number], tel:[phone] MASSIEL Corley No Information Cliff Lance. [address] [place] [address], [id number], [place]. tel:[phone] Referring Provider: Lance Coronado, [address] [place] [address], [address]. tel:[phone] Family History Family Member Type Diagnosis Age At Onset No Information Payers Payer name Insurance type Covered republican ID Authoriza tion(s) No Information Social History [...]
--- OUTSIDE RECORDS SUMMARY | 2024-04-24 09:05 | XMS_ITS | Continuity of Care Document ---
Author Organization [facility] Address [address] [place] [address] Phone Care Team Providers Care Supervisor Fabrication Name Role Phone John nAders MD, May Unavailable Unavailable Allergies, Adverse Reactions, [...] route every day 40 MG - Active Xarelto 20 mg tablet [...] times every day with meals - Active biotin 5 mg tablet - [...] I And R Bilatera l OFFICE/OUTPATIENT VISIT, [facility] Advance Directives Directive Yes / No Effective Date File Name No Information Encounters Encounter Description Practice Location Reason(s) For Visit Diagnoses Date Provider Providers Copied on Encounter [facility], [address], [place], [address], [place] tel: [phone] CONTRERAS Browning NPDR (chief complaint) 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 [address], [address], [place], [place], [address] , [place]. tel:[phone] Referring Provider: March John Alyseaida, [address], [place], [address] . 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 [address], [address], [place], [place], [address] , [place]. tel:[phone] Other Provider: Mady Lozano, [address] [place], [address]. tel:[phone] erring Provider: March John Anders, [address] [facility], [place], [address] . 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 [address], [address] [facility], [place], [place], [address] , [place]. tel:[phone] Referring Provider: March John Anders, [address] [facility], [place], [address] . 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 [address], [address] [facility], [place], [place], [address] , [place]. tel:[phone] Referring Provider: Renan Huang, [facility] [address] [place], [address]. tel:[phone] [facility], [address] [place], [address], [place] tel:[phone] CONTRERAS Contreras No Information 4 El Rashedy March. [address], [address] [facility], [place], [place], [address] , [place]. 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 [address], [address] [facility], [place], [place], [address] , [place]. tel:[phone] Referring Provider: Sanya Ross, [address] [facility], [place], [address] . tel:[phone] [facility], [address] [place], [address], [place] [phone] RVA Nam Follow Up of NPDR (chief complaint) 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, bilateralVitreous hemorrhage, right eyeHypertensive retinopathy of both eyesPseudophakiaHyper tension 3 Alkaliby Ahmed. [address], [address] [facility], [place], [place], [address] , [place]. [phone] Referring Provider: Sanya Ross, [address] [facility], [place], [address] . 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 [address], [address] [facility], [place], [place], [address] , [place]. tel:[phone] Referring Provider: Sanya Ross, [address] [facility], [place], [address] . 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 [address], [place], [place], [address] , [place]. [phone] Referring Provider: Sanya Newman M, [address], [place], [address] . tel:[phone] [facility], [address] [place], [address], [place] tel:[phone] RVA Nam NPDR w/ME (chief complaint) 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, bilateralVitreous hemorrhage, right eye Mar- 3 Alkaliby Ahmed. [address], [place], [place], [address] , [place]. [phone] Referring Provider: Renan Huang, [facility] [address] [place], [address]. tel:[phone] OFFICE/OUTPA TIENT VISIT, EST, Moderate [facility], [address] [place], [address], [place] tel:[phone] RVA [place] Macular edema (chief complaint) 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, bilateralPseudophakia HypertensionVitreous hemorrhage, right eyeHypertensive retinopathy of both eyesNexdtve age-related mclr degn, bilateral, early dry stage Feb-0 3 Alkaliby Ahmed. [address], [place], [place], [address] , [place]. [phone] Other Provider: Mady Lozano, [address] [place], [address]. tel:[phone] erring Provider: Renan Huang, [facility] [address] [place], [address]. tel:[phone] OFFICE/OUTPA TIENT VISIT, NEW [facility], [address] [place], [address], [place] tel:[phone] CONTRERAS Browning possible AMD (chief complaint) distorted vision (chief complaint) Nexdtve age-related mclr degn, bilateral, early dry stageRetinal hemorrhage, bilateralCombined forms of age-related cataract of both eyesEssential (primary) hypertension 1 Aidan Willard. [address], [place], [place], [address] , [place]. tel:[phone] Specialist : Renan Huang, [facility] [address] [place], [address]. tel:[phone] erring Provider: Renan Huang, [facility] [address] [place], [address]. tel:[phone] [facility] Physician s, [address] [place], [address], [place] tel:[phone] CONTRERAS Browning No Information 1 Aidan Willard. [address], [address], [place], [place], [address] , [place]. tel:[phone] Family History Family Member Type Diagnosis Age At Onset Father Problem degenerative disorder of mac georgette Father Problem glaucoma Father Problem hypertension Payers Payer name Insurance type Covered alliance party ID Authoriza tion(s) [employer] Medicare [id number] Social History Type Description Quantity Date Captured [...] bilateral) ordered Referral Referred To: Jarad Campbell [facility] [place], [address] Ordered: Referrals: Jarad Campbell. Assume care Appointment [...] Patient states she went and seen an management specialist who recommended penicillin, an eye wash [...] No Information Instructions Date Instruction Additional Infor silviaion Impression/Plan Related to Type 2 diabetes mellitus [...] macular edema, bilateral Impression/Plan Related to Hyper tensive retinopathy of both eyes Impression/Plan Related to Hyper tension Impression/Plan Related [...] ous hemorrhage, right eye Impression/Plan Related to Nexdt ve age-related mclr degn, bilateral, early dry stage Impression/Plan Related to Hyper tensive retinopathy of both eyes Impression/Plan Related to Pseud ophakia Return in 1 year wit mayra Bermudez [...]
--- OUTSIDE RECORDS SUMMARY | 2024-06-27 05:10 | XMS_ITS ---
Author Organization [facility] Address [address] [place] [address] Care Team Providers Care Pattern Grader Cutter Name Role Phone Theodora Cuevas M.D. Primary Care Provider Unavail able Eloina Mullins Unavailable [phone] REASON FOR VISIT C4-7 ACDF Encounters Encounter Location Date Provider Diagnosis [facility] [facility] [address] [place] [address] [place] [address] 06/27/2024 Eloina Mullins Plan Of Treatment No Information Progress Notes * JOE CALL GDOB:1945 (79 yo F)Acc No.[id number]:06/27/2024 Patient: JOE JACK Provider: Mariama Le MD, PhD :1945 A ge:78 Y S ex:Female Date:06/27/2024 Address:[address] [place], [id number] Pcp:Theodora Cuevas M.D. Subjective: * Chief Complaints: * 1 . C4-7 ACDF. * Medical History: Objective: * Vitals: Assessment: Plan: * Treatment: Forms: * Images: * Electronic signature of Dale Mullins MD, PHD on 06/19/2025 at 06:39 AM EDT Sign off status: Pending * Provider: Mariama Le MD, PhD Date: 0 06/27/2024 Generated for Printi ng/Faxing/eTransmitting on: 0 06/19/2025 06:39 AM EDT
--- OUTSIDE RECORDS SUMMARY | 2024-07-02 03:00 | XMS_ITS ---
Author Organization [facility] Address [address] [place] [address] Care Team Providers Care Business Excellence Leader Name Role Phone Theodora Cuevas M.D. Primary Care Provider Unavail able Eloina Mullins Unavailable [phone] REASON FOR VISIT C4-7 ACDF Encounters Encounter Location Date Provider Diagnosis [facility] [address] [place] [address] 07/02/2024 Eloina Mullins Plan Of Treatment No Information Progress Notes * JOE CALL GDOB:1945 (79 yo F)Acc No.[id number]:07/02/2024 Patient: Dulce GAVIN JOE G Provider: Mariama Le MD, PhD :1945 A ge:78 Y S ex:Female Date:07/02/2024 Address:[address] [place], [id number] Pcp:Theodora Cuevas M.D. * Images: * Electronic signature of Makennav bonnie Mullins MD, PHD on 06/19/2025 at 06:39 AM EDT Sign off status: Pending * Provider: Mariama Le MD, PhD Date: 07/02/2024 Generated for Printi ng/Faxing/eTransmitting on: 06/19/2025 06:39 AM EDT
--- OUTSIDE RECORDS SUMMARY | 2024-07-15 16:21 | XMS_ITS ---
Author Organization The [facility] in [place] Address [address] [place] [address] Care Team Providers Care Professor Of Engineering Name Role Phone Theodora Cuevas Primary Care Provider Harman Boucher [phone] REASON FOR VISIT NOT A [facility] PATIENT Encounters Encounter Location Date Provider Diagnosis [facility] [place] Medicine [address] [place] [address] 07/15/2024 Harman Morales Plan Of Treatment No Information Progress Notes * Kati LUEVANO GDOB:1945 (79 yo F)Acc No.[id number]:07/15/2024 Patient: Kati JACK :1945 A ge:79 Y S ex:Female Address:[address] [place], [address] * true * Date: Generated for Printi ng/Fathig/eTransmitting on: 0 06/19/2025 06:40 AM EDT
--- OUTSIDE RECORDS SUMMARY | 2024-08-15 07:40 | XMS_ITS ---
Author Organization [facility] Address [address] [place] [address] Care Team Providers Care Order Clerk Name Role Phone Theodora Cuevas M.D. Primary Care Provider Unavail able Eloian Mullins Unavailable [phone] REASON FOR VISIT C4-7 ACDF Encounters Encounter Location Date Provider Diagnosis [facility] [address] [place] [address] [place] [address] 08/15/2024 Eloina Mullins Plan Of Treatment No Information Progress Notes * JOE CALL GDOB:1945 (79 yo F)Acc No.[id number]:08/15/2024 Progress Notes Patient: JOE JACK Provider: Mariama Le MD, PhD :1945 A ge:79 Y S ex:Female Date:08/15/2024 Address:[address] [place], [id number] Pcp:Theodora Cuevas M.D. Subjective: * Chief Complaints: * 1 . C4-7 ACDF. * Medical History: Objective: * Vitals: Assessment: Plan: * Treatment: Forms: * Images: * Electronic signature of Dlae Mullins MD, PHD on 06/19/2025 at 06:40 AM EDT Sign off status: Pending * Provider: Mariama Le MD, PhD Date: 1 Generated for Bennie madera/Costa/eTransmitting on: 0 06/19/2025 06:40 AM EDT
[2025-06-19] VITALS (10 sets, daily range): BP systolic 144–183; BP diastolic 68–84; PULSE 67–84; TEMP 36.4–36.6; O2SAT 93–98; BMI 42.1; BMI 43.1
--- NOTE | 2025-06-19 04:57 | ECG_ITS ---
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 Measurements Intervals [place] Rate: 82 P: 68 OK: 168 QRS: 21 QRSD: 104 T: 73 QT: 388 QTc: 426 Interpretive Statements 1100 Sinus rhythm 3114 Cannot rule out anterior myocardial infarction, age undetermined 9150 abnormal ECG Compared to ECG 06/08/2025 14:43:31 Myocardial infarct finding now present Electronically Signed On 06-20-2025 7:35:46 EDT by RICA MEDRANO M.D.
--- NOTE | 2025-06-19 05:01 | ED.GENADUL1 ---
HPI HPI - General Adult General Chief complaint: Shortness of Breath/Dyspnea Stated complaint: CHS Time Seen by Provider: 06/19/25 04:44 Source: patient and family Mode of arrival: Wheelchair Limitations: no limitations History of Present Illness HPI narrative: Patient is a 79-year-old female, history significant for CHF, presenting to the emergency department with her for concerns of CHF exacerbation. The patient has been experiencing increasing leg swelling and shortness of breath over the last week. She has had multiple hospitalizations for the same issue over the last month or two. She has been taking her Lasix 40 mg at home as prescribed, however the swelling seems to be getting worse. She is on 2 L of home oxygen, and the notes that he has had to increase her oxygen requirements over the last couple days. The patient is complaining of shortness of breath, but she denies cough, fevers, or flulike symptoms. No hemoptysis. No abdominal pain, nausea, or vomiting. Related Data Home Medications ?Medication ?Instructions ?Recorded ?Confirmed insulin glargine 100 unit/mL (3 20 unit subcut BEDTIME 04/25/23 06/19/25 mL) subcutaneous pen (Lantus Solostar U-100 Insulin) alprazolam 0.25 mg tablet 0.25 mg PO TID PRN anxiety 04/30/24 06/19/25 levothyroxine 125 mcg tablet 125 mcg PO .acb 04/30/24 06/19/25 insulin NPH isoph U-100 human 100 1 unit subcut AC 06/09/24 06/19/25 unit/mL (3 mL) subcutaneous pen (Novolin N FlexPen) cholecalciferol (vitamin D3) 125 125 mcg PO DAILY 06/18/24 06/19/25 mcg (5,000 unit) tablet (Vitamin D3) rivaroxaban 20 mg tablet (Xarelto) 20 mg PO DAILY 06/18/24 06/08/25 vit C 226 mg-vit E 90 mg-copper 1 cap PO BID 06/18/24 06/08/25 0.8 mg-zinc oxide-lutein 5 mg capsule (PreserVision Lutein) famotidine 20 mg tablet 20 mg PO .qhs 07/24/24 06/19/25 omeprazole 40 mg capsule,delayed 40 mg PO .acb 07/24/24 06/19/25 release buspirone 5 mg tablet 5 mg PO BID 01/25/25 06/19/25 duloxetine 20 mg capsule,delayed 20 mg PO DAILY 01/25/25 06/19/25 release furosemide 40 mg tablet 40 mg PO DAILY 05/28/25 06/19/25 Previous Rx's ?Medication ?Instructions ?Recorded diphenoxylate-atropine 2.5 1 tab PO Q6H PRN Diarrhea 7 days 01/27/25 mg-0.025 mg tablet (Lomotil) #28 tabs metoprolol tartrate 25 mg tablet 25 mg PO BID #60 tabs 05/31/25 amlodipine 5 mg tablet 5 mg PO QD 30 days #30 tabs 06/10/25 Allergies Allergy/AdvReac Type Severity Reaction Status Date / Time Iodinated Contrast Media Allergy Intermediate Hives Verified 06/08/25 14:35 shellfish derived Allergy Intermediate Hives Verified 06/08/25 14:35 Sulfa (Sulfonamide Allergy Unknown Rash Verified 06/08/25 14:35 Antibiotics) Opioid HPI Opioid Management Most Recent Opioid Data: Last Pain Scale 0 05/31/25, 16:29 Last Pain Intensity 3 06/09/24, 13:07 Last ORT Total Score 0 06/08/25, 19:19 Last ORT Risk Category Low Risk 06/08/25, 19:19 Review of Systems ROS Status of ROS 10 or more systems reviewed and unremarkable except as noted in history and below [facility] Medical History (Updated 06/19/25 @ 06:26 by [place] DO) CHF (congestive heart failure) ?I50.9 - Heart failure, unspecified (ICD-10) GERD without esophagitis ?K21.9 - Gastro-esophageal reflux disease without esophagitis (ICD-10) Anxiety ?F41.9 - Anxiety disorder, unspecified (ICD-10) Intermittent palpitations ?R00.2 - Palpitations (ICD-10) Acute hyperglycemia ?R73.9 - Hyperglycemia, unspecified (ICD-10) Acute kidney injury ?N17.9 - Acute kidney failure, unspecified (ICD-10) Acute on chronic clinical systolic heart failure ?I50.23 - Acute on chronic systolic (congestive) heart failure (ICD-10) Acute renal failure ?N17.9 - Acute kidney failure, unspecified (ICD-10) Hyperkalemia ?E87.5 - Hyperkalemia (ICD-10) Acute dehydration ?E86.0 - Dehydration (ICD-10) Diabetes mellitus with hyperglycemia, with long-term current use of insulin ?E11.65 - Type 2 diabetes mellitus with hyperglycemia (ICD-10) ?Z79.4 - residential (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 insulin (ICD-10) Paroxysmal atrial fibrillation ?I48.0 - Paroxysmal atrial fibrillation (ICD-10) Hypothyroidism (acquired) ?E03.9 - Hypothyroidism, unspecified (ICD-10) Hypertension ?I10 - Essential (primary) hypertension (ICD-10) Hypokalemia ?E87.6 - Hypokalemia (ICD-10) CHF (congestive heart failure) ?I50.9 - Heart failure, unspecified (ICD-10) Cataracts, bilateral ?H26.9 - Unspecified cataract (ICD-10) Breast cancer ?C50.919 - Malignant neoplasm of unspecified site of unspecified female breast (ICD-10) Surgical History History of cholecystectomy ?Z90.49 - Acquired absence of other specified parts of digestive tract (ICD-10) History of appendectomy ?Z90.49 - Acquired absence of other specified parts of digestive tract (ICD-10) History of hysterectomy ?Z90.710 - Acquired absence of both cervix and uterus (ICD-10) H/O lumbosacral spine surgery ?Z98.890 - Other specified postprocedural states (ICD-10) H/O bilateral mastectomy ?Z90.13 - Acquired absence of bilateral breasts and nipples (ICD-10) Family History Other Family history of CHF (congestive heart failure) Family history of cancer Family history of diabetes mellitus Family history of hypertension H/O mastectomy Social History Within the past year, how often did you have a drink containing alcohol: never Within the past year, how often did you have six or more drinks on one occasion: never Score interpretation: A score less than 3 is consistent with normal alcohol consumption. 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 Highest level of school completed/degree received: some college, no degree Do you want help with school or training: No Are you now , , , , never or living with a partner: In a typical week, how many times do you talk on the telephone with family, friends, or neighbors: twice per week How often do you get together with friends or relatives: twice per week How often do you attend voodoo or shinto services: never Do you belong to any clubs or organizations such as voodoo groups unions, fraternal or athletic groups, or school groups: no Total score: 2 Score interpretation: A score of greater than or equal to 2 indicates the lowest level of social isolation. Little interest or pleasure in doing things: not at all Feeling down, depressed, or hopeless: not at all Feel stressed/tense/nervous/anxious/difficulty sleeping: not at all Due to disability, difficulty making decisions: No Do you think of yourself as: straight/heterosexual Gender Identity: female Exam Narrative Exam Narrative: CONSTITUTIONAL: Patient is lying in the stretcher with her eyes closed, she seems drowsy but is easily arousable and answers questions/follows commands appropriately SKIN: Was warm and dry. EYES: No conjunctival pallor. No scleral icterus. EARS, NOSE, THROAT: JVD is noted. RESPIRATORY: Bibasilar crackles auscultated. No wheezing. No use of accessory muscles. Speaking full sentences. CARDIOVASCULAR: Normal rate and regular rhythm. There is no S3, S4, murmur, rub. GASTROINTESTINAL: Abdomen was soft, non-tender, and non-distended. There is no guarding or rebound tenderness MUSCULOSKELETAL: There is symmetric, bilateral lower extremity pitting edema up to the knees. No calf tenderness. No overlying erythema or cellulitic changes. NEUROLOGIC: Patient is awake and alert. Facies were symmetrical. Constitutional Vital Signs, click to edit/add: Last Vital Signs Temp 97.9 F 06/19/25 04:40 Pulse 83 06/19/25 04:40 Resp 18 06/19/25 04:40 BP 183/81 H 06/19/25 04:40 Pulse Ox 98 06/19/25 05:10 O2 Del Method Nasal Cannula 06/19/25 05:10 O2 Flow Rate 2 06/19/25 05:10 Course Vital Signs Vital signs: Vital Signs Temperature 97.9 F 06/19/25 04:40 Pulse Rate 83 06/19/25 04:40 Respiratory Rate 18 06/19/25 04:40 Blood Pressure 183/81 H 06/19/25 04:40 Pulse Oximetry 98 06/19/25 04:40 Oxygen Delivery Method Nasal Cannula 06/19/25 04:40 Oxygen Delivery Flow Rate 2 06/19/25 04:40 Temperature 97.9 F 06/19/25 04:40 Pulse Rate 83 06/19/25 04:40 Respiratory Rate 18 06/19/25 04:40 Blood Pressure 183/81 H 06/19/25 04:40 Pulse Oximetry 98 06/19/25 05:10 Oxygen Delivery Method Nasal Cannula 06/19/25 05:10 Oxygen Delivery Flow Rate 2 06/19/25 05:10 Medical Decision Making MDM Narrative Medical decision making narrative: Patient is a 79-year-old female presenting to the emergency department for 1 week history of increasing shortness of breath and bilateral lower extremity edema. On review of external documentation, patient has a history of diastolic heart failure w/ preserved ejection fraction. She has had multiple hospitalizations over the last month for CHF exacerbation requiring IV diuresis. Additionally, she has a known left-sided pleural effusion initially seen on chest x-ray 1 month ago. Vital signs on arrival during this visit are within normal limits. She is saturating 98% on her home oxygen requirements of 2 L. Clinically, the patient appears to be having a CHF exacerbation. Other potential etiologies include worsening pleural effusion, ACS, arrhythmia, or other electrolyte/metabolic derangement. IV was established and laboratory studies were obtained. Chest x-ray was ordered. She was given 40 mg of IV Lasix for diuresis. Chest x-ray independently reviewed/interpreted by myself demonstrated left-sided pleural effusion that is unchanged from previous x-rays from earlier this month. Twelve-lead EKG demonstrated normal sinus rhythm without evidence of acute myocardial ischemia (see below for full dictation). Laboratory studies were significant for elevated BNP, likely related to CHF exacerbation. Troponin non-elevated. She is anemic but at her baseline. No evidence of acute renal injury. She is mildly hypomagnesemic and hypokalemic, but close to her baseline compared to previous laboratory studies. I do believe the patient warrants admission to the hospital for IV diuresis, CHF exacerbation. At the time of admission, patient is saturating 98% on her home oxygen requirements of 2 L in no respiratory distress. I discussed the patient with the hospitalist, Dr. Stewart, who accepted the patient to his service. Differential Diagnosis Differential Diagnosis: CHF exacerbation, ACS, pneumonia, electrolyte derangement Medical Records Medical records reviewed: Yes I reviewed the patient's medical records Lab Data Lab results reviewed: Yes I reviewed the patient's lab results Labs: Lab Results 06/19/25 Range/Units 05:18 WBC 6.5 (4.0-11.0) 10^3/uL RBC 3.66 L (4.20-5.40) 10^6/uL Hgb 11.0 L (12.0-16.0) g/dL Hct 33.5 L (36.0-48.0) % MCV 91.5 (81.0-99.0) fL MCH 30.1 (26.7-34.0) pg MCHC 32.8 (29.9-35.2) g/dL RDW 15.8 H (11.0-15.0) % Plt Count 244 (150-450) 10^3/uL MPV 10.2 (9.5-13.5) fL Sodium 145 (136-145) mmol/L Potassium 3.3 L (3.5-5.1) mmol/L Chloride 106 (98-107) mmol/L Carbon Dioxide 33.4 H (21.0-32.0) mmol/L Anion Gap 8.9 BUN 32.0 H (7.0-18.0) mg/dL Creatinine 1.81 H (0.55-1.02) mg/dL Est GFR ( Amer) 33 L (>=60 mL/min/1.73m^2) Est GFR (Non-Af Amer) 27 L (>=60 mL/min/1.73m^2) BUN/Creatinine Ratio 17.7 Glucose 134 H (74-106) mg/dL Calcium 8.5 (8.5-10.1) mg/dL Magnesium 1.5 L (1.8-2.4) mg/dL Troponin I High Sens 29.7 (4.0-51.3) pg/mL NT-Pro-B Natriuret Pep 9659.0 H* (<=1800.0) pg/mL Imaging Data Chest x-ray: Attestation: I personally reviewed and interpreted this imaging study as follows: (Left-sided pleural effusion unchanged from previous x-rays from 06/09. No evidence of consolidations or pneumonia.) ECG Data Attestation: I personally reviewed and interpreted this ECG as follows: (Normal sinus rhythm without evidence of acute myocardial ischemia. Normal rate of 82. Normal axis. No ST segment elevations. QRS, ID, and QTc interval within normal limits. Unchanged compared to prior EKG from 06/08/25.) Discharge Plan Discharge Chief Complaint: Shortness of Breath/Dyspnea Clinical Impression: Diastolic congestive heart failure Patient Disposition: Admitted As Inpatient Time of Disposition Decision: 06:25 Condition: Fair
[2025-06-19 05:25] LABS: Hematocrit 33.5 % (36.0-48.0); Hemoglobin 11.0 g/dL (12.0-16.0); Mean Corpuscular HGB Conc 32.8 g/dL (29.9-35.2); Mean Corpuscular Hemoglobin 30.1 pg (26.7-34.0); Mean Corpuscular Volume 91.5 fL (81.0-99.0); Platelet Count 244 10^3/uL (150-450); Red Blood Count 3.66 10^6/uL (4.20-5.40); White Blood Count 6.5 10^3/uL (4.0-11.0)
[2025-06-19 05:48] LABS: Anion Gap 8.9; Blood Urea Nitrogen 32.0 mg/dL (7.0-18.0); Calcium 8.5 mg/dL (8.5-10.1); Carbon Dioxide 33.4 mmol/L (21.0-32.0); Chloride 106 mmol/L (98-107); Estimated GFR (African America 33 (>=60 mL/min/1.73m^2); Estimated GFR (Non-African Ame 27 (>=60 mL/min/1.73m^2); Glucose 134 mg/dL (74-106); Magnesium 1.5 mg/dL (1.8-2.4); Potassium 3.3 mmol/L (3.5-5.1); Sodium 145 mmol/L (136-145)
[2025-06-19 05:58] LABS: NT Pro B Type Natriuretic Pept 9659.0 pg/mL (<=1800.0)
[2025-06-19] MEDS: FUROSEMIDE 40 MG/4 ML VIAL IVP ×2 (06:01→13:23)
--- OUTSIDE RECORDS SUMMARY | 2025-06-19 06:40 | XMS_ITS | Clinical Summary ---
Author Organization [facility] Address [id number] [address] [place] [address] Care Team Providers Care Repair Electric Motor Assembler Name Role Phone Theodora Cuevas MD Primary Care Provider [phone] Allergies Active Allergy Reactions Criticality Noted Date Comments Shellfish Derived Hives 10/04/2022 Pt unsure if iodine can be used on the skin Sulfa (Sulfonamide Antibiotics) 04/15/2021 Medications atorvastatin (LIPITOR) 20 mg tablet Take 1 tablet (20 mg total) by mouth in the morning. Active vitamins A,C,E-zinc-romel er (ICAPS AREDS) 14,320-226-200 ghrw-sf-ptdr capsule Take 2 capsules by mouth in the morning and 2 capsules before bedtime. Active omega 2-njl-bcz-fish oil 300-1,000 mg capsule Take by mouth. [...] 08/28/2016, 08/30/2009 Medical Devices Implanted Type Area Foreign Language Interpreter Device Identifier Shelf Expiration Date Model / Serial / Lot Lens Iol Ultrasert 24.0d - [id number] - [id number] Implanted:Qty: 1 on 04/26/2021 by Renate Michaels MD at [facility] Lens Right: Eye [employer] 03/18/2023 [id number] 24.0 / [id number] / NA Lens Iol Ultrasert 22.5d - [id number] - [id number] Implanted:Qty: 1 on 10/26/2022 by Renate Michaels MD at [facility] Lens [employer] 05/08/2025 [id number] 22.5 / [id number] / NA Insurance HU[employer]NA MEDICARE Care Teams Repair Electric Motor Assembler Relationship Specialty Start Date End Date Theodora Cuevas MD [facility] [place] [address] PCP - General Family Medicine 04/26/21
--- OUTSIDE RECORDS SUMMARY | 2025-06-19 06:40 | XMS_ITS | Clinical Summary ---
Author Organization [facility] Address [address] [place] [address] Care Team Providers Care Rn New Grad Name Role Phone Jose Francisco Ross DO Primary Care Provider [phone] Social History Tobacco Use Types Packs/Day Years Used Date Smoking Tobacco: Never Assessed Comments Unknown Sex and Gender Information Value Date Recorded Sex Assigned at Not on file Legal Sex Female 3:22 PM EDT Gender Identity Not on file Sexual Orientation Not on file Plan of Treatment Not on file Insurance [employer] MEDICARE Care Teams Rn New Grad Relationship Specialty Start Date End Date Jose Francisco Ross DO PCP - General Family Medicine 06/23/15
--- OUTSIDE RECORDS SUMMARY | 2025-06-19 06:40 | XMS_ITS | Patient Health Record ---
Author Organization [facility] [place] Address [address] [place] [address] Care Team Providers Care Manager Public Name Role Phone Theodora Cuevas Primary Care Provider Harman Boucher [phone] Results Component Value Reference Range Notes Urine Culture, Routine Reviewed date:07/17/2024 06:09:06 PM Interpretation: Performing Lab: Notes/Report: [facility] , Urine Culture, Routine See Below For Report Urine Culture, Routine Urine Culture, Routine Mixed urogenital coutr Urine Culture, Routine Urine Culture, Routine Less than 10,000 colonies/mL Urine Culture, Routine Urine Culture, Routine Performed at: - [facility] [place] Urine Culture, Routine Urine Culture, Routine [address] [place] [address] [id number] Urine Culture, Routine Urine Culture, Routine Oracle Soa Developer: Elio Landis PhD, Phone: [phone] Urine Culture, Routine Performing Lab: see note SEE REPORT - Media Consultant Id information not found for OBX-specific promos executive producer legend LC - [facility] UA RANDOM W or MICROSCOPIC Reviewed date:07/15/2024 08:21:48 PM Interpretation: Performing Lab: Notes/Report: [facility] , Color Urine LT. YELLOW YELLOW Clarity Urine CLEAR CLEAR Specific [place] Urine 1.020 1.005-1.025 pH Urine 6.5 5.0-9.0 [...] Performing Lab: see note ML - [facility] LB Reason For Referral No Information Problems Problem Type SNOMED Code ICD Code Onset Dates Problem Status W/U Status Risk Notes Problem Hypomagnesemia (157312647) Hypomagnesemia (E83.42) Active confirmed Problem Atrial fibrillation (49038408) Atrial fibrillation (I48.91) Active confirmed Problem Hypertension (58024100) Hypertension (I10) Active confirmed Problem Congestive heart failure (11015106) CHF (congestive heart failure) (I50.9) Active confirmed Problem Gastroesophageal reflux disease (724186112) GERD (gastroesophageal reflux disease) (K21.9) Active confirmed Problem Hypothyroidism (03626604) Hypothyroidism (E03.9) Active confirmed Problem Diabetes mellitus type 2 (disorder) (96652826) DM2 (diabetes mellitus, type 2) (E11.9) Active confirmed Problem Acquired hypothyroidism (506160562) Acquired hypothyroidism (E03.9) Active confirmed Problem Iron deficiency anemia (94176997) Anemia, iron deficiency (D50.9) Active confirmed Problem Hyperglycemia due to type 2 diabetes mellitus (446703591058938) Diabetes mellitus with hyperglycemia (E11.65) Active confirmed Problem Acute on chronic systolic heart failure (591425732) Acute on chronic clinical systolic heart failure (I50.23) Active confirmed Problem Diabetes mellitus (29586650) Diabetes mellitus (E11.9) Active confirmed Encounters Encounter Location Date Provider Diagnosis [facility] [address] [place] [address] 07/15/2024 Harman Morales Plan Of Treatment No Information Insurance Providers Payer Name Payer Address Payer Phone Subscriber Number Group Number Insured Name Patient Relationship to Insured Coverage Start Date Coverage End Date [employer]NA MEDICARE ADV PLAN [address] [address] [place] [address] [phone] [id number] Kati Luevano Self - patient is the insured 4
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
--- OUTSIDE RECORDS SUMMARY | 2025-06-19 06:40 | XMS_ITS | Clinical Summary ---
Author Organization [facility] Address [address] [place] [address] Care Team Providers Care Motion Picture Set Grip Name Role Phone Theodora Cuevas MD Primary Care Provider [phone] Allergies Active Allergy Reactions Criticality Noted Date [...] 05/20/2024 Immunization due 05/20/2024 Lactose intolerance 05/20/2024 MCC (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 insulin 05/20/2024 Lumbar degenerative [...] Care Team Description 05/07/2025 Travel 05/07/2025 Telephone [facility] [address] [place] [address] Mary Carson RN 04/27/2025 Refill [facility] [address] [place] [address] Angelica Valencia MA 04/22/2025 11:00 AM EDT Office Visit [place] [address] [place] [address] Akira Kaplan MD Chronic diastolic congestive heart failure (CMS/HCC) (Primary Dx); Paroxysmal atrial fibrillation (CMS/HCC); 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
--- OUTSIDE RECORDS SUMMARY | 2025-06-19 06:40 | XMS_ITS | Clinical Summary ---
Author Organization [facility] Address [address] [place] [address] Care Team Providers Care Therapy Manager Name Role Phone Theodora Cuevas MD Primary Care Provider Allergies Active Allergy Reactions Criticality Noted Date [...] Inject 1 Units under the skin 01/24/20 24 Active nystatin (Mycostatin) cream Apply 1 application [...] before bedtime. 30 capsule 2 07/10/20 24 025 Active bumetanide (Bumex) 1 MG tablet Take 1 mg by mouth in the morning and 1 mg in the evening. 06/18/20 24 Active Lantus 100 UNIT/ML injection Inject 35 [...] by mouth at bedtime 90 tablet 07/22/20 24 Active Active Problems Problem Noted Date Diagnosed [...] 07/03/2024 07/03/2024 Lactose intolerance 05/20/2024 07/03/20 24 exterminator 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 insulin 05/20/2024 07/03/2024 Stress [...] Vaccine: 65+ Years Completed 4, 11/12/2011 Insurance [facility] MEDICARE ADVANTAGE Care Teams Therapy Manager Relationship Specialty Start Date End Date Theodora Cuevas MD PCP - General Family Medicine 06/25/24
--- OUTSIDE RECORDS SUMMARY | 2025-06-19 06:40 | XMS_ITS | Clinical Summary ---
Author Organization [facility] Address [address], [address] [place] [address] Care Team Providers Care Pantry Attendant Name Role Phone Theodora Cuevas MD Primary Care Provider [phone] Allergies Active Allergy Reactions Criticality Noted Date [...] on file Insurance [employer] MEDICARE Care Teams Pantry Attendant Relationship Specialty Start Date End Date Theodora Cuevas MD PCP - General Family Medicine 02/13/18
--- NOTE | 2025-06-19 09:01 | SWNOTE1 ---
From previous discharge from hospital pt was set up with 2 liters of home oxygen with ambulation from [facility]. Pt was also set up with [facility] to see if she is still current with them.
[2025-06-19] MEDS: RIVAROXABAN 10 MG TABLET 20 MG PO (09:04)
[2025-06-19] MEDS: DULOXETINE HCL 20 MG CAPSULE.DR PO (09:05)
[2025-06-19] MEDS: AMLODIPINE BESYLATE 5 MG TABLET PO (09:05)
[2025-06-19] MEDS: CHOLECALCIFEROL (VITAMIN D3) 125 MCG/5,000 UNIT TABLET PO (09:05)
[2025-06-19] MEDS: MAGNESIUM SULFATE/D5W 1 GM/100 ML PREMIX IV (09:05)
[2025-06-19] MEDS: BUSPIRONE HCL 10 MG TABLET 5 MG PO (09:05)
[2025-06-19] MEDS: METOPROLOL TARTRATE 25 MG TABLET PO (09:05)
[2025-06-19] MEDS: PANTOPRAZOLE SODIUM 40 MG TABLET.DR PO (09:05)
[2025-06-19] MEDS: LEVOTHYROXINE SODIUM 125 MCG TABLET PO (09:05)
[2025-06-19] MEDS: POTASSIUM CHLORIDE 10 MEQ ER TABLET 20 MEQ PO (09:08)
--- NOTE | 2025-06-19 10:30 | CM.NOTE ---
Rounds made with Dr. Chavira, discussed with pt reason for hospital admission and plan of care.
--- NOTE | 2025-06-19 11:26 | SWNOTE1 ---
During morning huddle, discussed pt, and it was voiced that pt's home oxygen is not working. SW to check in to this. SW called [facility] and they have voiced they have been out there several times and everything is working. She voiced she will reach out to again and will stop in to home. SW did let them know that SW will also reach out to home health and have nurse check in as well. SW updated case management who spoke with and he voiced it is not broken. She just needs it turned about around a certain time each day, but again voiced nothing is broken and working fine. Case management updated physician. SW called [facility] and pt is current with them.
--- NOTE | 2025-06-19 13:00 | CM.NOTE ---
Case Management in to speak with pt regarding PT and OT recommendations for skilled therapy at discharge, pt would like to discuss with her . Pt at this time is leaning towards home with HH services and not skilled. Case management talked with pt in regards to readmissions to hospital and home safety. Case Management also spoke with pt in regards to CHF and daily weights at home, importance of medication compliance and diet. Pt verbalizes understanding. states pt is non-compliant at home with medications, touched again with pt of importance of taking medications. Pt verbalizes understanding.
--- NOTE | 2025-06-19 13:10 | PM.IMHP1 ---
Internal Medicine - H&P: HPI History of Present Illness Chief complaint: CHS, CHF EXACERBATION Narrative: Miss Luevano is a 79-year-old female With a past medical history of diastolic heart failure, lymphedema status post mastectomy, CKD and a plethora of other chronic medical problems who presented to hospital on the morning of today with a chief complaint of worsening shortness of breath. Patient was just recently discharged in this facility the afternoon of June 11 for a similar presentation, she reports compliance with her medications and using her oxygen at home however despite that she noticed that she was extremely short of breath this morning and she was brought back to emergency room. In the emergency room she was found to have elevated BNP, slightly above her baseline though lower than she was at her prior hospitalization. She was not requiring anything beyond 2 L nasal cannula, this is her baseline. She was subsequently given a dose of IV Lasix in the emergency room and admitted to the hospital for concerns for CHF exacerbation. Upon my assessment of her on morning rounds, the patient endorses feeling better, she states that when she woke up she felt as though her oxygen supply was running low, said that it was not supplying her with the amount of oxygen she needed. She says this happens often. On further discussion with the , this actually happens most days, he states that she wakes up almost every day concerned for not been able to breathe and having anxiety about not breathing well. It spontaneously resolves around 10 or 11 AM. He does not feel she is compliant with her home medications including her Lasix therapy. Review of Systems ROS Status of ROS 10 or more systems reviewed and unremarkable except as noted in history and below [facility] Medical History (Updated 06/19/25 @ 13:19 by SHELLY WARD DO) CHF (congestive heart failure) ?I50.9 - Heart failure, unspecified (ICD-10) GERD without esophagitis ?K21.9 - Gastro-esophageal reflux disease without esophagitis (ICD-10) Anxiety ?F41.9 - Anxiety disorder, unspecified (ICD-10) Intermittent palpitations ?R00.2 - Palpitations (ICD-10) Acute hyperglycemia ?R73.9 - Hyperglycemia, unspecified (ICD-10) Acute kidney injury ?N17.9 - Acute kidney failure, unspecified (ICD-10) Acute on chronic clinical systolic heart failure ?I50.23 - Acute on chronic systolic (congestive) heart failure (ICD-10) Acute renal failure ?N17.9 - Acute kidney failure, unspecified (ICD-10) Hyperkalemia ?E87.5 - Hyperkalemia (ICD-10) Acute dehydration ?E86.0 - Dehydration (ICD-10) Diabetes mellitus with hyperglycemia, with long-term current use of insulin ?E11.65 - Type 2 diabetes mellitus with hyperglycemia (ICD-10) ?Z79.4 - USP (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 insulin (ICD-10) Paroxysmal atrial fibrillation ?I48.0 - Paroxysmal atrial fibrillation (ICD-10) Hypothyroidism (acquired) ?E03.9 - Hypothyroidism, unspecified (ICD-10) Hypertension ?I10 - Essential (primary) hypertension (ICD-10) Hypokalemia ?E87.6 - Hypokalemia (ICD-10) CHF (congestive heart failure) ?I50.9 - Heart failure, unspecified (ICD-10) Cataracts, bilateral ?H26.9 - Unspecified cataract (ICD-10) Breast cancer ?C50.919 - Malignant neoplasm of unspecified site of unspecified female breast (ICD-10) Surgical History History of cholecystectomy ?Z90.49 - Acquired absence of other specified parts of digestive tract (ICD-10) History of appendectomy ?Z90.49 - Acquired absence of other specified parts of digestive tract (ICD-10) History of hysterectomy ?Z90.710 - Acquired absence of both cervix and uterus (ICD-10) H/O lumbosacral spine surgery ?Z98.890 - Other specified postprocedural states (ICD-10) H/O bilateral mastectomy ?Z90.13 - Acquired absence of bilateral breasts and nipples (ICD-10) Family History Other Family history of CHF (congestive heart failure) Family history of cancer Family history of diabetes mellitus Family history of hypertension H/O mastectomy Social History Within the past year, how often did you have a drink containing alcohol: never Within the past year, how often did you have six or more drinks on one occasion: never Score interpretation: A score less than 3 is consistent with normal alcohol consumption. 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 Highest level of school completed/degree received: some college, no degree Do you want help with school or training: No Are you now , , , , never or living with a partner: In a typical week, how many times do you talk on the telephone with family, friends, or neighbors: twice per week How often do you get together with friends or relatives: twice per week How often do you attend mu-ism or gnosticism services: never Do you belong to any clubs or organizations such as mu-ism groups unions, [employer] or athletic groups, or school groups: no Total score: 2 Score interpretation: A score of greater than or equal to 2 indicates the lowest level of social isolation. Little interest or pleasure in doing things: several days Feeling down, depressed, or hopeless: several days Feel stressed/tense/nervous/anxious/difficulty sleeping: not at all Due to disability, difficulty making decisions: No Do you think of yourself as: straight/heterosexual Gender Identity: female Meds Home Medications and Allergies Home Medications ?Medication ?Instructions ?Recorded ?Confirmed ?Type insulin glargine 100 unit/mL (3 30 unit subcut BEDTIME 04/25/23 06/19/25 History mL) subcutaneous pen (Lantus Solostar U-100 Insulin) alprazolam 0.25 mg tablet 0.25 mg PO TID PRN anxiety 04/30/24 06/19/25 History levothyroxine 125 mcg tablet 125 mcg PO .acb 04/30/24 06/19/25 History insulin NPH isoph U-100 human 100 1 unit subcut AC 06/09/24 06/19/25 History unit/mL (3 mL) subcutaneous pen (Novolin N FlexPen) cholecalciferol (vitamin D3) 125 125 mcg PO DAILY 06/18/24 06/19/25 History mcg (5,000 unit) tablet (Vitamin D3) rivaroxaban 20 mg tablet (Xarelto) 20 mg PO DAILY 06/18/24 06/19/25 History vit C 226 mg-vit E 90 mg-copper 1 cap PO BID 06/18/24 06/19/25 History 0.8 mg-zinc oxide-lutein 5 mg capsule (PreserVision Lutein) famotidine 20 mg tablet 20 mg PO .qhs 07/24/24 06/19/25 History omeprazole 40 mg capsule,delayed 40 mg PO .acb 07/24/24 06/19/25 History release buspirone 5 mg tablet 5 mg PO BID 01/25/25 06/19/25 History duloxetine 20 mg capsule,delayed 20 mg PO DAILY 01/25/25 06/19/25 History release diphenoxylate-atropine 2.5 1 tab PO Q6H PRN Diarrhea 7 days 01/27/25 06/19/25 Rx mg-0.025 mg tablet (Lomotil) #28 tabs furosemide 40 mg tablet 40 mg PO DAILY 05/28/25 06/19/25 History metoprolol tartrate 25 mg tablet 25 mg PO BID #60 tabs 05/31/25 06/19/25 Rx amlodipine 5 mg tablet 5 mg PO QD 30 days #30 tabs 06/10/25 06/19/25 Rx propranolol 40 mg tablet 40 mg PO BID 06/19/25 06/19/25 History Allergies Allergy/AdvReac Type Severity Reaction Status Date / Time Iodinated Contrast Media Allergy Intermediate Hives Verified 06/08/25 14:35 shellfish derived Allergy Intermediate Hives Verified 06/08/25 14:35 Sulfa (Sulfonamide Allergy Unknown Rash Verified 06/08/25 14:35 Antibiotics) Exam Narrative Exam Narrative: General: Awake and alert, no acute distress HEENT: Normocephalic, atraumatic, no scleral icterus noted Lungs: Clear to auscultation bilaterally Cardiac: Regular rate and rhythm, no murmurs appreciated GI: Soft, nontender, regular bowel sounds. Extremities: Active and passive range of motion intact throughout, no edema, Bilateral lower extremity edema, her left upper extremity has chronic lymphedema Neuro: Cranial nerves II through XII intact, no focal deficits noted Skin: No rashes or lesions, no signs of jaundice Constitutional Vital Signs, click to edit/add: Last Vital Signs Temp 97.9 F 06/19/25 08:00 Pulse 69 06/19/25 12:00 Resp 18 06/19/25 08:00 BP 170/84 H 06/19/25 08:00 Pulse Ox 94 L 06/19/25 09:42 O2 Del Method Nasal Cannula 06/19/25 09:42 O2 Flow Rate 2 06/19/25 09:42 Internal Medicine - H&P: Reslt Labs Labs: Short CBC 06/19/25 Range/Units 05:18 WBC 6.5 (4.0-11.0) 10^3/uL Hgb 11.0 L (12.0-16.0) g/dL Hct 33.5 L (36.0-48.0) % Plt Count 244 (150-450) 10^3/uL BMP 06/19/25 05:18 Sodium 145 Potassium 3.3 L Chloride 106 Carbon Dioxide 33.4 H BUN 32.0 H Creatinine 1.81 H Glucose 134 H Calcium 8.5 Assessment and Plan Assessment and Plan (1) Diastolic congestive heart failure: Assessment and Plan: ? Admit to MedSurg, telemetry, observation status, the admission order was changed in the computer today ? Continue with IV Lasix as ordered ? Continue supplemental oxygenation ? Plan to reach out to her home oxygen company and assure that her oxygen unit is working properly ? No indication for repeat echocardiogram Qualifiers: Heart failure chronicity: acute on chronic Qualified Code(s): I50.33 - Acute on chronic diastolic (congestive) heart failure (2) Obesity: Assessment and Plan: PT OT, patient will likely need home health upon discharge. She is already set up with home health company. Qualifiers: Obesity type: due to excess calories Obesity classification: adult class 3 (BMI >= 40) Serious obesity comorbidity presence: with serious comorbidity Body mass index: BMI 40.0-44.9 Qualified Code(s): E66.01 - Morbid (severe) obesity due to excess calories; Z68.41 - Body mass index [BMI] 40.0-44.9, adult (3) Noncompliance: Assessment and Plan: states that she does not take her medications often at home, this is likely contributing to numerous admissions for her. Plan ? DVT prophylax addressed ? Regular diet ? Full code
[2025-06-19] MEDS: HYDRALAZINE HCL 20 MG/ML VIAL 10 MG IVP (13:18)
--- NOTE | 2025-06-19 13:23 | P.DS_ITS ---
DS: Providers Provider Date of admission: 06/19/25 06:37 Primary care physician: Theodora Cuevas MD Consults: 06/19/25 11:14 Occupational Therapy Eval and Treat Routine Reason for consultation: Physical Therapy Eval and Treat Routine Reason for consultation: Discharging clinician: SHELLY WARD DS: Diagnosis Discharge Diagnosis (1) Diastolic congestive heart failure: Qualifiers: Heart failure chronicity: acute on chronic Qualified Code(s): I50.33 - Acute on chronic diastolic (congestive) heart failure (2) Obesity: Qualifiers: Body mass index: BMI 40.0-44.9 Obesity classification: adult class 3 (BMI >= 40) Obesity type: due to excess calories Serious obesity comorbidity presence: with serious comorbidity Qualified Code(s): E66.01 - Morbid (severe) obesity due to excess calories; Z68.41 - Body mass index [BMI] 40.0-44.9, adult (3) Noncompliance: DS: Summary Hospital Course Hospital Course: Miss Luevano is a 79-year-old female who has been in the hospital in the morning of June 19, initially it was assumed to be secondary to a CHF exacerbation, she received 1 dose of IV Lasix and she returned to her baseline. She was only requiring 2 L nasal cannula while admitted, this is her baseline. Her BNP was elevated though not significantly higher than her prior numbers but it is much lower than her last admission. We likely do not have a euvolemic BNP for her however I do feel she is not far from her theoretical baseline for this. According to , the patient is noncompliant with her medications at home o n occasions, he often sees at her pill organizer is still full despite being a few days gone by, he has encouraged her to take her medications and she says she does however. She also works third morning and slight anxiety attack it sounds like secondary to the sensation of not being able to breathe, I did recommend to the the patient that she should sleep with her head of the bed elevated if I able to or perhaps even on a recliner to keep her lungs above her heart and thus hopefully be able to breathe little better when she wakes up. This morning for some reason she thought it was worse than usual and is why she is brought to the hospital. It was assured that her oxygen delivery unit is functioning properly. The patient was seen by PT and OT, recommended home health upon discharge. She would likely benefit greatly from going to nursing facility to assure compliance and continue with therapy however the patient denied this. She received IV Lasix here in the hospital, she will be discharged with no medication changes. Time Spent with Patient Time attestation: Total time spent providing and/or coordinating discharge services: Exam Narrative Exam Narrative: General: Awake and alert, no acute distress HEENT: Normocephalic, atraumatic, no scleral icterus noted Lungs: Clear to auscultation bilaterally Cardiac: Regular rate and rhythm, no murmurs appreciated GI: Soft, nontender, regular bowel sounds. Extremities: Active and passive range of motion intact throughout, +2 pitting into her bilateral lower extremity, her left upper extremity has chronic lymphedema. Neuro: Cranial nerves II through XII intact, no focal deficits noted Skin: No rashes or lesions, no signs of jaundice Constitutional Vital Signs, click to edit/add: Last Vital Signs Temp 97.8 F 06/19/25 12:00 Pulse 76 06/19/25 12:00 Resp 18 06/19/25 12:00 BP 174/68 H 06/19/25 12:00 Pulse Ox 96 06/19/25 12:00 O2 Del Method Nasal Cannula 06/19/25 12:00 O2 Flow Rate 2 06/19/25 12:00 DS: Data Data Completed and Pending Labs on day of discharge: Labs from last 24 hours 06/19/25 06/19/25 11:46 05:18 WBC 6.5 RBC 3.66 L Hgb 11.0 L Hct 33.5 L MCV 91.5 MCH 30.1 MCHC 32.8 RDW 15.8 H Plt Count 244 MPV 10.2 Sodium 145 Potassium 3.3 L Chloride 106 Carbon Dioxide 33.4 H Anion Gap 8.9 BUN 32.0 H Creatinine 1.81 H Est GFR ( Amer) 33 L Est GFR (Non-Af Amer) 27 L BUN/Creatinine Ratio 17.7 Glucose 134 H Calcium 8.5 Magnesium 1.5 L Troponin I High Sens 29.7 NT-Pro-B Natriuret Pep 9659.0 H* POC Glucose 188 H Discharge Plan Discharge Disposition: Home Health Service Condition: Fair Discharge Medications: Continued insulin glargine [Lantus Solostar U-100 Insulin] 100 unit/mL (3 mL) insulin pen 30 unit SUBCUT BEDTIME levothyroxine 125 mcg tablet 125 mcg PO .acb alprazolam 0.25 mg tablet 0.25 mg PO TID PRN (Reason: anxiety) Patient Comments: 0.25mg PO TID PRN for anxiety buspirone 5 mg tablet 5 mg PO BID duloxetine 20 mg capsule,delayed release(DR/EC) 20 mg PO DAILY diphenoxylate-atropine [Lomotil] 2.5-0.025 mg Tablet 1 tab PO Q6H PRN (Reason: Diarrhea) 7 Days Qty: 28 0RF furosemide 40 mg tablet 40 mg PO DAILY metoprolol tartrate 25 mg Tablet 25 mg PO BID Qty: 60 2RF amlodipine 5 mg Tablet 5 mg PO QD 30 Days Qty: 30 0RF propranolol 40 mg tablet 40 mg PO BID Xarelto 20 mg tablet 20 mg PO DAILY Rx Instructions: must administer with evening meal PreserVision Lutein 226-90-0.8-5 mg capsule 1 cap PO BID cholecalciferol (vitamin D3) [Vitamin D3] 125 mcg (5,000 unit) tablet 125 mcg PO DAILY Novolin N FlexPen 100 unit/mL (3 mL) insulin pen 1 unit SUBCUT AC Patient Comments: (if BLOOD SUGAR is BETWEEN 150-199 INJECT 3 (THREE) UNITS, if BETWEEN 200-249 INJECT FOUR UNITS, if BETWEEN 250-299 INJECT 7 (SEVEN) UNITS, if BETWEEN 300-349 INJECT TEN UNITS, if BETWEEN 350-399 INJECT 12 UNITS, if 400 or great INJECT 14 UNITS) Rx Instructions: SLIDING SCALE famotidine 20 mg tablet 20 mg PO .qhs omeprazole 40 mg capsule,delayed release(DR/EC) 40 mg PO .acb Activity: resume usual activities as tolerated Diet: advance to your usual diet Print Language: Ukrainian Patient Instructions: Heart Failure (DC), Shortness of Breath (DC) Methodologist/Quality Assurance Assistant Instructions: Resume [facility] [employer], phone number is [phone]. Forms: Portal Instructions Follow Up Appointments: 07/02 @ 3:30pm with Dr. Cuevas [phone] *office will call patient if an appt. opens sooner*
--- NOTE | 2025-06-19 13:29 | SWNOTE1 ---
SW reviewed PT/OT evals and recommendation of SNF. Pt has declined SNF for last few hospital visits. Pt's has voiced he feels she needs it, but pt has refused. Pt has [facility] coming in. SW or case management to check in with pt to discuss dc plans.
--- NOTE | 2025-06-19 13:37 | SWNOTE1 ---
BIJAL stopped in to talk with pt in regards to discharge planning. SW let her know that therapy is recommending SNF. She voiced that she will tell SW what she has told 18 other people that have asked her about rehab, she is not going to rehab, she is going home. At this time pt is refusing SNF. BIJAL encouraged pt to work with home health therapy when they come in. BIJAL to send updates to [facility] and order for resumption of care.
--- NOTE | 2025-06-19 14:59 | SWNOTE1 ---
BIJAL faxed CRF, DC summary, H&P, ED note, and PT/OT notes to [facility]. Pt will resume services.
--- NOTE | 2025-06-23 14:48 | CM.DCFOLLOWU ---
Person spoke with: pt's How are you feeling? well, still has diarrhea, but overall doing alright How is your pain?none Did you understand your discharge instructions?yes Do you have any questions about your discharge instructions? no. Pt's jonathan did ask about a portable oxygen machine, like he sees on T.V. The [employer] machine. He said the [employer] company recommended as she is getting tangled in tubing and having to refill the concentrator with water, etc. I explained that pt's PCP will have to prescribe and document for this. He voiced he thought the physician who discharged her on home oxygen from hospital could. I explained the PCP will have to as it requires her medical history documented and need for the inogen. He voiced understanding Were you given any prescriptions at discharge? yes Were you able to get your prescriptions filled?yes Do you understand how to take your medications as ordered?yes Do you have any questions about your follow up appointment and do you plan to keep your follow up appointment? no questions, follow up reviewed Is there anything else that you would like to discuss?no Questions/Comments/Concerns/Other: none
== END 2025-06-19 15:44 | disposition home health service (06) ==
LOC: ER 06:26 → MS 06:51
PROVIDERS: Admitting Provider Internal Medicine; Emergency Provider Student in an Organized Health Care Education/Training Program; PCP Family Medicine; Visit Provider Internal Medicine
DX: I50.33 Acute on chronic diastolic (congestive) heart failure (principal); E66.01 Morbid (severe) obesity due to excess calories; Z68.41 Body mass index [BMI] 40.0-44.9, adult; Z91.148 Patient's other noncompliance with medication regimen for other reason; Z99.81 Dependence on supplemental oxygen; Z90.49 Acquired absence of other specified parts of digestive tract; Z90.13 Acquired absence of bilateral breasts and nipples; Z90.710 Acquired absence of both cervix and uterus; Z79.899 Other long term (current) drug therapy
CPT/HCPCS: 36415; 71046; 80048; 82948; 83735; 83880; 84484; 85027; 93005; 94761; 96365; 96375; 96376; 97161; 97165; 99285; G0378; J0360; J1938; J3475

== ENCOUNTER 2025-06-28 12:42 | Inpatient (IN) | payer MEDICARE, SELFPAY ==
--- OUTSIDE RECORDS SUMMARY | 2024-06-27 05:10 | XMS_ITS ---
Author Organization [facility] Address [address] [place] [address] Care Team Providers Care Domestic Technician Name Role Phone Theodora Cuevas M.D. Primary Care Provider Unavail able Eloina Mullins Unavailable [phone] REASON FOR VISIT C4-7 ACDF Encounters Encounter Location Date Provider Diagnosis [facility] [facility] [address] [place] [address] [place] [address] 06/27/2024 Eloina Mullins Plan Of Treatment No Information Progress Notes * JOE CALL GDOB:1945 (79 yo F)Acc No.[id number]:06/27/2024 Patient: JOE JACK Provider: Mariama eL MD, PhD :1945 A ge:78 Y S ex:Female Date:06/27/2024 Address:[address] [place], [id number] Pcp:Theodora Cuevas M.D. Subjective: * Chief Complaints: * 1 . C4-7 ACDF. * Medical History: Objective: * Vitals: Assessment: Plan: * Treatment: Forms: * Images: * Electronic signature of Dale Mullins MD, PHD on 06/28/2025 at 01:00 PM EDT Sign off status: Pending * Provider: Mariama Le MD, PhD Date: 0 06/27/2024 Generated for Printi ng/Faxing/eTransmitting on: 0 06/28/2025 01:00 PM EDT
--- OUTSIDE RECORDS SUMMARY | 2024-07-02 03:00 | XMS_ITS ---
Author Organization [facility] Address [address] [place] [address] Care Team Providers Care Career Consultant Name Role Phone Theodora Cuevas M.D. Primary Care Provider Unavail able Eloina Mullins Unavailable [phone] REASON FOR VISIT C4-7 ACDF Encounters Encounter Location Date Provider Diagnosis [facility] [address] [place] [address] 07/02/2024 Eloina Mullins Plan Of Treatment No Information Progress Notes * JOE CALL GDOB:1945 (79 yo F)Acc No.[id number]:07/02/2024 Patient: Dulce GAVIN JOE G Provider: Mariama Le MD, PhD :1945 A ge:78 Y S ex:Female Date:07/02/2024 Address:[address] [place], [id number] Pcp:Theodora Cuevas M.D. * Images: * Electronic signature of Selv bonnie Mullins MD, PHD on 06/28/2025 at 01:00 PM EDT Sign off status: Pending * Provider: Mariama Le MD, PhD Date: 07/02/2024 Generated for Printi ng/Faxing/eTransmitting on: 06/28/2025 01:00 PM EDT
--- OUTSIDE RECORDS SUMMARY | 2024-07-15 16:21 | XMS_ITS ---
Author Organization The [facility] in [place] Address [address] [place] [address] Care Team Providers Care Premium Auditor Name Role Phone Theodora Cuevas Primary Care Provider Harman Boucher [phone] REASON FOR VISIT NOT A [facility] PATIENT Encounters Encounter Location Date Provider Diagnosis [facility] Medicine [address] [place] [address] 07/15/2024 Harman Morales Plan Of Treatment No Information Progress Notes * Kati LUEVANO GDOB:1945 (79 yo F)Acc No.[id number]:07/15/2024 Patient: Kati JACK :1945 A ge:79 Y S ex:Female Address:[address] [place], [address] * true * Date: Generated for Printi santy/Fathig/eTransmitting on: 0 06/28/2025 01:01 PM EDT
--- OUTSIDE RECORDS SUMMARY | 2024-08-15 07:40 | XMS_ITS ---
Author Organization [facility] Address [address] [place] [address] Care Team Providers Care Playground Equipment Erector Name Role Phone Theodora Cuevas M.D. Primary Care Provider Unavail able Eloina Mullins Unavailable [phone] REASON FOR VISIT C4-7 ACDF Encounters Encounter Location Date Provider Diagnosis [facility] [address] [place] [address] [place] [address] 08/15/2024 Eloina Mullins Plan Of Treatment No Information Progress Notes * JOE CALL GDOB:1945 (79 yo F)Acc No.[id number]:08/15/2024 Progress Notes Patient: JOE JACK Provider: Mariama Le MD, PhD :1945 A ge:79 Y S ex:Female Date:08/15/2024 Address:[address] [place], [id number] Pcp:Theodora Cuevas M.D. Subjective: * Chief Complaints: * 1 . C4-7 ACDF. * Medical History: Objective: * Vitals: Assessment: Plan: * Treatment: Forms: * Images: * Electronic signature of Dale Mullins MD, PHD on 06/28/2025 at 01:00 PM EDT Sign off status: Pending * Provider: Mariama Le MD, PhD Date: 1 Generated for Bennie madera/Costa/eTransmitting on: 0 06/28/2025 01:00 PM EDT
[2025-06-28] VITALS (36 sets, daily range): BP systolic 155–221; BP diastolic 67–107; PULSE 62–132; TEMP 35.8–36.6; O2SAT 88–98; BMI 43.9; BMI 42.9
--- OUTSIDE RECORDS SUMMARY | 2025-06-28 13:00 | XMS_ITS | Clinical Summary ---
Author Organization [facility] Address [id number] [address] [place] [address] Care Team Providers Care Livestock Slaughterer Name Role Phone Theodora Cuevas MD Primary Care Provider [phone] Allergies Active Allergy Reactions Criticality Noted Date Comments Shellfish Derived Hives 10/04/2022 Pt unsure if iodine can be used on the skin Sulfa (Sulfonamide Antibiotics) 04/15/2021 Medications atorvastatin (LIPITOR) 20 mg tablet Take 1 tablet (20 mg total) by mouth in the morning. Active vitamins A,C,E-zinc-romel er (ICAPS AREDS) 14,320-226-200 vtnq-ve-bgan capsule Take 2 capsules by mouth in the morning and 2 capsules before bedtime. Active omega 4-osb-xay-fish oil 300-1,000 mg capsule Take by mouth. [...] 08/28/2016, 08/30/2009 Medical Devices Implanted Type Area Heating And Refrigeration Inspector Device Identifier Shelf Expiration Date Model / Serial / Lot Lens Iol Ultrasert 24.0d - [id number] - [id number] Implanted:Qty: 1 on 04/26/2021 by Renate Michaels MD at [facility] Lens Right: Eye [employer] 03/18/2023 [id number] 24.0 / [id number] / NA Lens Iol Ultrasert 22.5d - [id number] - [id number] Implanted:Qty: 1 on 10/26/2022 by Renate Michaels MD at [facility] Lens [employer] 05/08/2025 AU00T0 22.5 / [id number] / NA Insurance [employer] MEDICARE Care Teams Livestock Slaughterer Relationship Specialty Start Date End Date Theodora Cuevas MD [facility] [place] [address] PCP - General Family Medicine 04/26/21
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
--- OUTSIDE RECORDS SUMMARY | 2025-06-28 13:01 | XMS_ITS | Clinical Summary ---
Author Organization [facility] Address [address] [place] [address] Care Team Providers Care Correctional Cook Name Role Phone Jose Francisco Ross DO Primary Care Provider [phone] Social History Tobacco Use Types Packs/Day Years Used Date Smoking Tobacco: Never Assessed Comments Unknown Sex and Gender Information Value Date Recorded Sex Assigned at Not on file Legal Sex Female 3:22 PM EDT Gender Identity Not on file Sexual Orientation Not on file Plan of Treatment Not on file Insurance [employer] MEDICARE Care Teams Correctional Cook Relationship Specialty Start Date End Date Jose Francisco Ross DO PCP - General Family Medicine 06/23/15
--- OUTSIDE RECORDS SUMMARY | 2025-06-28 13:01 | XMS_ITS | Clinical Summary ---
Author Organization [facility] Address [address] [place] [address] Care Team Providers Care Polymerization Oven Tender Name Role Phone Theodora Cuevas MD Primary Care Provider [phone] Allergies Active Allergy Reactions Criticality Noted Date [...] 07/03/2024 07/03/2024 Lactose intolerance 05/20/2024 07/03/20 24 equipment operator intermodal yard (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 insulin 05/20/2024 07/03/2024 Stress [...] Vaccine: 65+ Years Completed 4, 11/12/2011 Insurance [facility] MEDICARE ADVANTAGE Care Teams Polymerization Oven Tender Relationship Specialty Start Date End Date Theodora Cuevas MD PCP - General Family Medicine 06/25/24
--- OUTSIDE RECORDS SUMMARY | 2025-06-28 13:01 | XMS_ITS | Clinical Summary ---
Author Organization [facility] Address [address], [address] [place] [address] Care Team Providers Care Candy Rolling Machine Operator Name Role Phone Theodora Cuevas MD Primary Care Provider [phone] Allergies Active Allergy Reactions Criticality Noted Date [...] on file Insurance [employer] MEDICARE Care Teams Candy Rolling Machine Operator Relationship Specialty Start Date End Date Theodora Cuevas MD PCP - General Family Medicine 02/13/18
--- OUTSIDE RECORDS SUMMARY | 2025-06-28 13:01 | XMS_ITS | Patient Health Record ---
Author Organization [facility] Address [address] [place] [address] Care Team Providers Care Manager Of Broadcast Content Name Role Phone Theodora Cuevas Primary Care Provider Harman Boucher [phone] Results Component Value Reference Range Notes Urine Culture, Routine Reviewed date:07/17/2024 06:09:06 PM Interpretation: Performing Lab: Notes/Report: [facility] , Urine Culture, Routine See Below For Report Urine Culture, Routine Urine Culture, Routine Mixed urogenital court Urine Culture, Routine Urine Culture, Routine Less than 10,000 colonies/mL Urine Culture, Routine Urine Culture, Routine Performed at: - [facility] [place] Urine Culture, Routine Urine Culture, Routine [address] [place] [address] [phone] Urine Culture, Routine Urine Culture, Routine Logistics Operations Director: Elio Landis PhD, Phone: [phone] Urine Culture, Routine Performing Lab: see note SEE REPORT - Fountain Supervisor Id information not found for OBX-specific furnace operator oil or gas legend LC - [facility] LB UA RANDOM W or MICROSCOPIC Reviewed date:07/15/2024 08:21:48 PM Interpretation: Performing Lab: Notes/Report: [facility] , Color Urine LT. YELLOW YELLOW Clarity Urine CLEAR CLEAR Specific [place] Urine 1.020 1.005-1.025 pH Urine 6.5 5.0-9.0 [...] Performing Lab: see note ML - [facility] LB Reason For Referral No Information Problems Problem Type SNOMED Code ICD Code Onset Dates Problem Status W/U Status Risk Notes Problem Hypomagnesemia (827258265) Hypomagnesemia (E83.42) Active confirmed Problem Atrial fibrillation (36504589) Atrial fibrillation (I48.91) Active confirmed Problem Hypertension (73240848) Hypertension (I10) Active confirmed Problem Congestive heart failure (11797309) CHF (congestive heart failure) (I50.9) Active confirmed Problem Gastroesophageal reflux disease (872174832) GERD (gastroesophageal reflux disease) (K21.9) Active confirmed Problem Hypothyroidism (80826297) Hypothyroidism (E03.9) Active confirmed Problem Diabetes mellitus type 2 (disorder) (30478774) DM2 (diabetes mellitus, type 2) (E11.9) Active confirmed Problem Acquired hypothyroidism (369291187) Acquired hypothyroidism (E03.9) Active confirmed Problem Iron deficiency anemia (43774490) Anemia, iron deficiency (D50.9) Active confirmed Problem Hyperglycemia due to type 2 diabetes mellitus (568909799021286) Diabetes mellitus with hyperglycemia (E11.65) Active confirmed Problem Acute on chronic systolic heart failure (829854880) Acute on chronic clinical systolic heart failure (I50.23) Active confirmed Problem Diabetes mellitus (67138616) Diabetes mellitus (E11.9) Active confirmed Encounters Encounter Location Date Provider Diagnosis [facility] [address] [place] [address] 07/15/2024 Harman Morales Plan Of Treatment No Information Insurance Providers Payer Name Payer Address Payer Phone Subscriber Number Group Number Insured Name Patient Relationship to Insured Coverage Start Date Coverage End Date [employer] MEDICARE ADV PLAN [address] [address] [place] [address] [id number] Kati Luevano Self - patient is the insured 4
--- OUTSIDE RECORDS SUMMARY | 2025-06-28 13:03 | XMS_ITS | CCD ---
Author Organization [facility] CliniSywy Care Team Providers Care Visual Specialist Name Role Phone UNKNOWN, PROVIDER Unavailable Unavailable UNKNOWN, PROVIDER Unavailable Unavailable NIC BRYAN Unavailable Unavailable Akbar Cui II Unavailable SHANTEL STEVEN Primary Care Physician Shantel Steven Unavailable DR SHANTEL STEVEN Primary Care Unavailable YAMEL PANDYA Consulting Unavailable YAMEL PANDYA Admitting Unavailable YAMEL PANDYA Attending Unavailable MISC, DR MENA Consulting Unavailable [...] Consulting Unavailabl e KAZ, JACOB Consulting Unavailable IBN ROJAS Consulting Unavailable DIAB ., NIKKY Admitting [...] Unavailable CESAR ., MARTINE Consulting Unavailable YAMEL PANDYA Admitting Unavailable YAMEL PANDYA Attending Unavailable TENISHA, DR SHANTEL Alvarado Primary Care Unavailable TENISHA, DR SHANTEL Alvarado Primary Care Unavailable TENISHA, DR SHANTEL Alvarado Admitting Unavailable DR SHANTEL STEVEN Attending Unavailable DR SHANTEL STEVEN Consulting Unavailable Jaleesa Vanessa Unavailable MD Shantel Steven Primary Care Provider MD Shantel Steven Other Provider MD Eloina Hussein Attending Provider MD Eloina Hussein Referring Provider Tufl, DO Jorge Luis Ross Emergency Provider MD Shantel Steven Primary Care Provider Tupa, DO Jorge Luis M Emergency Provider MD Shantel Steven Primary Care Provider MD Shantel Steven Attending Provider MD Shantel Steven Attending Provider Shantel Steven MD Primary Care Provider LIZETT JACINTO Attending Unavailable SHANTEL STEVEN Referring Unavailable TIMMIS, CHRISTEL H Attending Unavailable STEVENSHANTEL Referring Unavailable TIMMIS, CHRISTEL H Attending Unavailable STEVEN, SHANTEL Referring Unavailable STUFRANCHESCA CARDONA Attending Unavailable STUFRANCHESCA CARDONA Attending Unavailable STU, FRANCHESCA Alvarado Attending Unavailable STU, FRANCHESCA Alvarado Attending Unavailable STU, FRANCHESCA Alvarado Attending Unavailable Angle PORRAS, Jorge Luis Ross Emergency Provider Shantel Steven MD Primary Care Provider Mauri Chavira DO Admit Provider Ange Vergara MD Other Provider Renetta Trivedi MD Other Provider Kavin Escobar DO Attending Provider Zhang Norwood DO Emergency Provider [phone] Daniele Jane DO Emergency Provider Shantel Cho MD Primary Care Provider [phone] Zhang Norwood DO Emergency Provider Daniele Jane DO Emergency Provider Shantel Cho MD Primary Care Provider Shantel Steven MD Primary Care Provider Jorge Calix DO Emergency Provider Jorge Calix DO Emergency Provider Unavailable Shantel Steven MD Primary Care Provider [phone] Cherie Rapp MD Attending Provider [phone] Cheng Aviles APRN Attending Provider Jorge Calix DO Emergency Provider Unavailable Wandy Alvarez CMA Attending Provider UnavailShantel Morales MD Attending Provider SABRINA LUNA Attending Unavailable YAMEL PANDYA Attending Unavailable YAMEL PANDYA Attending Unavailable YAMEL PANDYA Attending Unavailable RICA KAPLAN Attending Unavailable RICA KAPLAN Attending Unavailable SABRINA LUNA Attending Unavailable SABRINA LUNA Attending Unavailable SABRINA LUNA Attending Unavailable Shantel Steven MD Primary Care Provider Cheng Aviles APRN Attending Provider Wandy Alvarez CMA Attending Provider UnavailShantel Morales MD Attending Provider Analisa Bryant MD Attending Provider Monica Stewart MD Attending Provider Shantel Steven MD Primary Care Provider Cheng Aviles APRN Attending Provider Wandy Alvarez CMA Attending Provider UnavailJarred Palacios DO Attending Provider Osbaldo Marlow MD Attending Provider Shantel Steven Admitting Unavailable Shantel Steven Attending Unavailable Kavin Escobar Attending UnavailMauri Pleitez Admitting Unavailable Ange Vergara Consulting Unavailable Shantel Steven Primary Care Unavailable Renetta Trivedi Consulting Unavaila Jorge Lambert Admitting Unavailable Jorge Calix Attending Unavailable Shantel Steven E Primary Care Unavailable Zhang Norwood Admitting Unavailable Zhang Norwood Attending Unavailable Shantel Steven Primary Care Unavailable Daniele Jane Admitting Unavailable Daniele Jane Attending Unavailable Steven, Shantel E Primary Care Unavailable Steven, Shantel E Primary Care Unavailable Shantel Steven E Attending Unavailable Tenisha, Shantel E Admitting Unavailable Steven, Shantel E Primary Care Unavailable Shantle Steven E Attending Unavailable Tenisha, Shantel E Admitting Unavailable Allergies Allergy Classification Reported Allergen(s) Allergy Type Date of Onset Reaction(s) Facility (1 source) Iodine (And Iodine Containting Drugs) Drug allergy (disorder) 03-04-20 12 [facility] Repository (20 sources) Shellfish; Translations: [Shellfish] Food allergy (disorder) 03-04-20 12 rash, Eruption of skin (disorder) [facility] Rep[facility] (20 sources) Sulfonamides (Antibiotic); Translations: [SULFA (SULFONAMIDE ANTIBIOTICS)] Drug allergy (disorder) 03-04-20 12 Rash [facility] (20 sources) Sulfacetamide Drug Allergy 02-15-20 24 diarrhea [facility] (20 sources) Contrast media; Translations: [contrast media (iodine-based)] Drug allergy 02-15-20 Unknown (qualifier value), Rash [facility] [place] (6 sources) Sulfonamides (Antibiotic); Translations: [sulfa drugs] Drug allergy Diarrhea (finding) [facility] (2 sources) Glucosamine Drug Allergy [facility] Repository (2 sources) Iodine (And Iodine Containting Drugs) Drug allergy (disorder) 08-09-20 17 [facility] Repository (11 sources) Contrast media Propensity to adverse reactions 11-18-[address] DYE [employer] Other (20 sources) Iodine; Translations: [IODINE] Drug Allergy 10-30-20 14 Other, Unknown [employer] Other (20 sources) Substance with sulfonamide structure and antibacterial mechanism of action (substance) Drug allergy 10-30-20 14 Unknown [employer] Other (11 sources) Dyes Propensity to adverse reactions Comment:CT Dyes,Dyes,IVP Dyes [facility] [employer] Other (20 sources) Shellfish; Translations: [SHELLFISH DERIVED] Allergy to substance 10-30-20 [facility] (20 sources) Iodinated Contrast Media; Translations: [IODINATED CONTRAST MEDIA] Allergy to substance 02-15-20 [facility] (13 sources) metFORMIN; Translations: [METFORMIN HCL] Drug Allergy 07-03-20 [facility] (6 sources) Chocolate Flavoring Agent (Non-Screening) Propensity to adverse reactions 01-17-20 [facility] [employer] Work Phone: (12 sources) Shellfish-Derive d Products Drug Intolerance 03-15-20 [facility] (7 sources) Chocolate; Translations: [CHOCOLATE FLAVOR] Propensity to adverse reactions 01-17-20 [facility] [employer] Work Phone: (1 source) Sulfacetamide Drug Allergy 06-17-20 [facility] Repository (1 source) Sulfonamides (Antibiotic) Drug allergy (disorder) 06-17-20 [facility] Repository Medications Current Medications Medication Drug Class(es) Dates Sig (Normalized) Sig (Original) 8 Hour Arthritis Pain Reliever (14 sources) ALPRAZolam 0.25 mg oral tablet (20 sources) Benzodiazepine Start: 02-19-2025 Start: 11-03-2024 End: 11-10-2024 Start: 06-05-2024 End: 09-10-2024 Start: 06-05-2024 End: 11-10-2024 take 1 tablet [...] 25, 2024 3:46pm Start: 07-27-2022 End: 03-25-2024 amLODIPine 5 mg oral tablet (1 source) Dihydropyridine Calcium Channel Khadijah Start: 06-10-2025 ascorbic acid 226 mg / beta carotene 41030 unt / cuprous oxide 0.8 mg / dl-alpha tocopheryl acetate 200 unt / zinc oxide 34.8 mg oral capsule (5 sources) Vitamin C Start: 01-17-2024 Start: 01-17-2024 take 1 capsule by [facility] twice daily Vitamins A,C,D-Cxwf-Xvurjl (Preservision Areds) 4,296 mcg-226 mg-90 mg capsule Active 1 CAP PO Twice daily January 17, 2024 1:00am Complies with drug therapy ascorbic acid 113 mg / coppe r gluconate 0.4 mg / docosahexaenoic acid 87.5 mg / eicosapentaenoic acid 163 mg / lutein 2.5 mg / tocopherol acetate 100 unt / zeaxanthin 0.5 mg / zinc oxide 17.4 mg oral capsule (20 sources) Vitamin C PreserVision ARE DS 2 - as directed Orally ONCE A DAY Active B-12 (5 sources) Start: 03-07-2021 B-12 Refills(s ) 0 Start Date: 03/07/21 Status: Ordered cholecalciferol 0.125 mg ora l capsule (20 sources) Vitamin D Start: 02-19-2025 Start: 06-05-2024 End: 02-19-2025 Start: 01-17-2024 End: 06-05-2024 take 1 capsule by [facility] every twenty-four hours Vitamin D3 125 MCG (5000 UT) 1 capsule Orally Once a day Active take 1 capsule by [facility] every twenty-four hours Vitamin D3 25 MCG (1000 UT) 1 capsule Orally Once a day Active cholestyramine resin 4000 mg powder for oral suspension (5 sources) Bile Acid Sequestrant Start: 03-07-2021 Questran 4 g/9 g ora l powder = 1 packet(s), Oral, Daily, # 30 EA, Refills(s) 11, Pharmacy: [id number], 165.1, cm, 03/07/21 13:49:00 EDT, Height/Length Dosing, 121.8, kg, 03/07/21 13:49:00 EDT, Weight Dosing Start Date: 03/07/21 Status: Ordered Start: 03-07-2021 Questran 4 g/9 g oral powder = 1 packet(s), Oral, Daily, # 30 EA, Refills(s) 11, Pharmacy: [facility], 165.1, cm, 03/07/21 13:49:00 EDT, Height/Length Dosing, 121.8, kg, 03/07/21 13:49:00 EDT, Weight Dosing Start Date: 03/07/21 Status: Ordered Dilt-CD 120 mg (14 sources) take 1 capsule by mouth once daily DULoxetine 20 mg delayed release oral capsule (20 sources) Serotonin and Norepinephrine Reuptake Inhibitor Start: 06-10-2025 Start: 02-19-2025 End: 04-21-2025 Start: 01-06-2025 End: 02-19-2025 Start: 12-09-2024 End: 01-06-2025 famotidine 20 mg oral tablet (20 sources) Histamine-2 Receptor Antagonist Start: 03-05-2025 End: 05-21-2025 Start: 03-05-2025 End: 05-21-2025 take 1 tablet by mouth at bedtime Famotidine 20 mg tablet Active 0 .ROUTE .COMPLEX May 21, 2025 11:25am TAKE 1 TABLET BY MOUTH AT BEDTIME Complies with drug therapy Start: 02-19-2025 End: 03-05-2025 Start: 01-06-2025 End: 02-19-2025 Start: 01-06-2025 End: 02-19-2025 take 1 tablet by mouth at bedtime Famotidine 20 mg tablet Discontinued 0 .ROUTE .COMPLEX February 09, 2025 2:56pm February 19, 2025 9:09am TAKE 1 TABLET BY MOUTH AT BEDTIME Start: 01-17-2024 End: 01-06-2025 Start: 01-07-2023 take 1 tablet by joesph [...] Once a day Active Flash Glucose Scanning Pauline bruce ([employer] 2 Snyder) misc (17 sources) Start: 09-10-2024 Flash Glucose Scanning Snyder (Freestyle Familia 2 Snyder) misc Active 0 .Route September 10, 2024 8:12am As directed Start: 09-10-2024 Flash Glucose Scanning Snyder (Fre[employer]amilia 2 Snyder) misc Active 0 .Route September 10, 2024 7:12am As directed Start: 07-16-2024 End: 09-10-2024 Flash Glucose Scanning Reade r (Freestyle Familia 2 Snyder) misc Discontinued 0 .Route July 16, 2024 12:00am September 10, 2024 8:13am As directed Start: 07-16-2024 End: 09-10-2024 Flash Glucose Scanning Reade r (Freestyle Familia 2 Snyder) misc Discontinued 0 .Route July 15, 2024 11:00pm September 10, 2024 7:13am As directed Start: 07-16-2024 Flash Glucose Scanning Snyder ([employer]amilia 2 Snyder) misc Active 0 .Route July 16, 2024 [...] 2 Sensor) kit Active 0 .ROUTE .COMPLEX February 18, 2025 8:30am USE DIRECTED to test BLOOD SUGAR DAILY *change EVERY 14 days * Start: 12-23-2024 End: 02-18-2025 Flash Glucose Sensor (Freest yle Familia 2 Sensor) kit Discontinued 0 .ROUTE .COMPLEX 1 December 23, 2024 2:15pm February 18, 2025 [...] 2 Sensor) kit Discontinued 0 .ROUTE .COMPLEX July 17, 2024 10:19am September 01, 2024 [...] 2 07/10/2024 07/10/2025 Active 3 ml insulin isophane, human 100 unt/ml pen injector (20 sources) Start: 03-02-2025 Start: 03-02-2025 Insulin Nph Is oph U-100 [...] 14 UNITS) Complies with drug therapy Start: 01-24-2024 insulin NPH, Brodie elizabethane, (HumuLIN N,NovoLIN N) 100 UNIT/ML injection Inject 1 Units under the skin 01/24/2024 Active Start: 01-24-2024 End: 03-02-2025 Lantus Solostar Pen (5 sources) Start: 07-27-2022 inject 35 [IU] by subcutaneous injection once daily at bedtime Lantus Solostar Pen 35 unit(s), SubCutaneous, Once a day (at bedtime), Refill(s) 0 Start Date: 07/27/22 Status: Ordered levothyroxine sodium 0.125 mg oral tablet (20 sources) l-Thyrox ine Start: 02-10-2025 End: 03-05-2025 Start: 02-10-2025 End: 03-05-2025 take 1 tablet [...] BY MOUTH DAILY Start: 02-09-2025 End: 02-10-2025 Start: 11-03-2024 End: 02-09-2025 Start: 06-07-2024 take 1 tablet by joesph th before mealtime levothyroxine (Synthroid, Levoxyl) 125 MCG tablet Take 125 mcg by mouth in the morning. Take before meals. 06/07/2024 Active Start: 04-03-2024 End: 11-03-2024 Start: 04-03-2024 End: 04-03-2024 Start: 06-11-2021 End: 04-03-2024 Start: 03-07-2021 take 112 ug by mouth once mayte y levothyroxine 112 mcg, Oral, Daily, Refills(s) 0 Start Date: 03/07/21 Status: Ordered Levothyroxine So dium 112 MCG TAKE 1 TABLET EVERY DAY for 90 Active Loperamide (14 sources) Opioid Agonist metoprolol tartrate 25 mg or al tablet (20 sources) beta-Adrenergic Khadijah Start: 06-10-2025 Start: 08-12-2024 End: 10-20-2024 Metoprolol Tartrate 100 [...] 1.5 tablets before bedtime. 06/07/2024 Active Start: 02-19-2024 End: 10-20-2024 Start: 02-19-2024 End: 10-20-2024 Metoprolol Tartrate 100 [...] End: 01-17-2024 Start: 06-19-2021 End: 01-17-2024 take 1 tablet by mouth once daily Metoprolol Tartrate 100 mg tablet Discontinued 100 MG PO Daily June 19, 2021 12:00am January 17, 2024 5:18pm take 1 tablet by joesph th every twenty-four hours Multiple Vitamins-Minerals (PRESERVISION AREDS 2 PO) (8 sources) Multiple Vitamin s-Minerals (PRESERVISION AREDS 2 PO) Take by mouth Active Nystatin 100,000 unit/gram powder (2 sources) Start: 02-19-2025 Nystatin 100,000 unit/gram powder Active TOPICAL February 19, 2025 12:00am omeprazole 40 mg delayed release oral capsule (20 sources) Proton Pump Inhibitor Start: 01-06-2025 End: 04-21-2025 Start: 12-09-2024 End: 01-06-2025 Start: 07-22-2024 End: 10-20-2024 take 1 capsule [...] (20 sources) Factor Xa Inhibitor Start: 02-19-2025 Start: 06-12-2021 End: 02-09-2025 take 0.5 tablet by m out once daily Xarelto 10 MG 1/2 tablet Orally Once a day for 90 days Active Selenium 200 MCG (4 sources) take 1 tablet by joesph once daily Selenium 200 MCG 1 tablet Orally Once a day Active True Metrix Blood Glucose Test - (5 sources) True Metrix Bloo d Glucose Test - TEST BLOOD SUGAR EVERY DAY for 90 Active vitamin b12 1 mg extended release oral tablet (1 source) Vitamin B12 take 1 tablet by joesph every twenty-four hours Vitamin B12 1000 MCG [...] capsule Orally Once a day Active Vitamins A,C,V-Dboa-Agthcy (Preservision Areds) 4,296 mcg-226 mg-90 mg capsule (18 sources) Start: 01-17-2024 take 1 capsule by mouth twice daily Vitamins A,C,N-Ewjh-Srmoym (Preservision Areds) 4,296 mcg-226 mg-90 mg capsule Active 1 CAP PO Twice daily January 17, 2024 12:00am Start: 01-17-2024 take 1 capsule by [facility] twice daily Vitamins A,C,Y-Pnpn-Vzevan (Preservision Areds) 4,296 mcg-226 mg-90 mg capsule Active 1 CAP PO Twice daily January 17, 2024 1:00am (20 sources) Start: 05-29-2025 Start: 04-20-2025 End: 05-29-2025 Start: 04-20-2025 Start: 03-05-2025 Start: 03-05-2025 Start: [...] sources) Opioid Agonist Start: 02-19-2025 End: 02-19-2025 Start: 02-19-2025 End: 02-19-2025 take 1 tablet by mouth once daily as needed Oxycodone-Acetaminophen 5-325 mg tablet Discontinued 1 TAB PO Daily as needed February 19, 2025 12:00am February 19, 2025 9:19am Start: 07-07-2024 End: 02-09-2025 Start: 07-07-2024 End: 02-09-2025 take 1 tablet by mouth once daily as needed for pain Oxycodone-Acetaminophen 5-325 mg tablet Discontinued 1 TAB PO Daily as needed for pain August 07, 2024 September 10, 2024 8:13am Start: 06-07-2024 End: 06-07-2024 Start: 06-07-2024 End: [...] 12, 2021 12:00am June 19, 2021 3:13am [id number] 200 actuat albuter ol 0.09 mg/actuat metered dose inhaler (20 sources) beta2-Adrenergic Agonist Start: 10-25-2024 End: 11-03-2024 Start: 10-25-2024 End: 11-03-2024 Albuterol Sulfate 90 mcg/act uation HFA aerosol inhaler Discontinued 2 INH INHALATION Q6H as needed for shortness of breath or wheezing 8 October 25, 2024 1:00am November 03, 2024 12:41pm administer with spacer Start: 01-17-2024 End: 04-03-2024 Start: 01-17-2024 End: [...] bedtime Orally Once a day Not-Taking amylase [id number] unt / lipase 78066 unt / protease 56721 unt delayed release oral capsule (20 sources) Start: End: Start: 06-11-2021 End: 06-19-2021 Ljfltv-Eutvenrq-Ehnptod (Cre on) 24,000-76,000 -120,000 unit capsule,delayed release(DR/EC) Discontinued 1 - 2 CAP PO 1-2 TIMES DAILY June 11, 2021 12:00am June 19, 2021 3:12am Start: 05-10-2021 Creon 24,000 u nits oral delayed release capsule See Instructions, take 3 caps with each meal and 2 caps with each snack., # 390 caplet(s), Refills(s) 0, Pharmacy: [id number], 165.1, cm, 04/18/21 13:02:00 EDT, Height/Length Dosing, 116.4, kg, 04/18/21 13:02:00 EDT, Weight Dosing Start Date: 05/10/21 Status: Ordered atorvastatin 20 mg oral tabl et (20 sources) HMG-CoA Reductase Inhibitor Start: 03-07-2021 End: 06-10-2025 atropine sulfate 0.025 mg / diphenoxylate hydrochloride 2.5 mg oral tablet (20 sources) Anticholinergic, Cholinergic Muscarinic Antagonist, Antidiarrheal Start: 02-09-2025 End: 03-24-2025 Start: 02-09-2025 End: 03-24-2025 take 1 tablet by mouth every six hours as needed for diarrhea Diphenoxylate-Atropine 2.5-0.025 mg tablet Active 1 TAB PO Every 6 hours as needed for diarrhea 08 06March 24, 2025 2:26pm Complies with drug therapy bifidobacterium infantis 4 m g oral capsule (20 sources) Start: 06-05-2024 End: 11-03-2024 biotin 10 mg oral capsule (20 sources) Start: 02-19-2025 End: 03-12-2025 Start: 06-05-2024 End: 11-03-2024 Start: 06-05-2024 End: 11-03-2024 Start: 01-17-2024 End: 04-03-2024 take 1 capsule by [facility] every twenty-four hours Biotin 5 MG 1 capsule Orally Once a day Active bumetanide 1 mg oral tablet (20 sources) Loop Diuretic Start: 06-18-2024 End: 06-18-2025 busPIRone hydrochloride 5 mg oral tablet (20 sources) Start: 01-06-2025 End: 05-29-2025 Start: 12-09-2024 End: 01-06-2025 carvedilol 6.25 mg oral tablet (20 sources) alpha-Adrenergic Khadijah, beta-Adrenergic Khadijah Start: 06-12-2021 End: 01-17-2024 cefdinir 300 mg oral capsule (20 sources) Cephalosporin Antibacterial Start: 06-12-2021 End: 01-17-2024 cephalexin 500 mg oral capsule (20 sources) Cephalosporin Antibacterial Start: 03-12-2025 End: 03-24-2025 Start: 10-22-2024 End: 11-03-2024 ciprofloxacin 250 mg oral ta blet (17 sources) Quinolone Antimicrobial Start: 07-21-2024 End: 10-16-2024 dapagliflozin 10 mg oral tab let (20 sources) Sodium-Glucose Cotransporter 2 Inhibitor Start: 01-22-2024 End: 04-03-2024 FARXIGA Active Dapagliflozin Pr opanediol 10 MG 1 tablet once a day Active diclofenac sodium 0.01 mg/mg topical gel (16 sources) Nonsteroidal Anti-inflammatory Drug Start: 10-20-2024 End: 11-03-2024 24 hr dilTIAZem hydrochlorid e 120 mg extended release oral tablet (20 sources) Calcium Channel Khadijah Start: 02-19-2025 End: 06-04-2025 Start: 07-27-2022 take 1 capsule by [facility] once daily diltiazem 120 mg oral capsule, extended release 120 mg = 1 cap(s), Oral, Daily, Refills(s) 0 Start Date: 07/27/22 Status: Ordered Start: 06-19-2021 End: 02-09-2025 End: 07-22-2024 take 1 tablet by mouth in the morning dilTIAZem (Cardizem) 120 MG immediate release tablet Take 120 mg by mouth in the morning. 07/22/2024 Discontinued (Duplicate order) take 1 capsule by [facility] every twelve hours dilTIAZem HCl ER 120 MG 1 capsule Orally Twice a day Active Diphenoxylate-Atropine 2.5-0.025 mg tablet (4 sources) Start: 02-09-2025 End: 02-09-2025 take 1 tablet by mouth every six hours as needed Diphenoxylate-Atropine 2.5-0.025 mg tablet Discontinued 1 TAB PO Every 6 hours as needed February 09, 2025 12:00am February 09, 2025 2:51pm fluconazole 100 mg oral tablet (20 sources) Azole Antifungal Start: 06-12-2021 End: 01-17-2024 furosemide 40 mg oral tablet (20 sources) Loop Diuretic Start: 10-20-2024 End: 02-19-2025 Start: 10-20-2024 End: 02-19-2025 Furosemide 40 mg tablet Disc ontinued 40 MG PO Every 48 hours November 11, 2024 3:11pm February 19, 2025 9:09am further refills or dose adjustment per Nephrology. Start: 01-17-2024 End: 05-07-2024 Start: 07-27-2022 End: 10-20-2024 take 1 tablet by joesph th every [...] 2024 3:13pm 3 ml insulin aspart, human 1 00 unt/ml pen injector (15 sources) Insulin Analog Start: 06-12-2021 End: 01-24-2024 Start: 06-12-2021 End: 01-24-2024 inject 14 [IU] [...] than or = 400 mg/dl 14 unit 3 ml insulin glargine 100 unt/ml pen injector (20 sources) Insulin Analog Start: 06-13-2024 inject 20 [IU] by subcutaneous injection in the morning Basaglar KwikPen 100 UNIT/ML pen Inject 20 Units under the skin in the morning and 20 Units before bedtime. 06/13/2024 Active Start: 06-05-2024 End: 06-10-2025 Start: 06-05-2024 End: 04-16-2025 Insulin Glargine (Basaglar [...] 19, 2025 9:09am Start: 03-25-2024 End: 04-03-2024 Start: 03-25-2024 End: 04-03-2024 Insulin Glargine (Lantus Cha ostar U-100 Insulin) 100 unit/mL (3 mL) insulin pen Discontinued 20 UNIT SUBCUT Every morning March 25, 2024 12:00am April 03, 2024 11:47am Start: 03-13-2024 inject 35 [IU] by garcia bcutaneous injection in the morning Lantus 100 UNIT/ML injection Inject 35 Units under the skin in the morning. 03/13/2024 Active Start: 06-12-2021 End: 03-25-2024 Start: 06-12-2021 End: 01-17-2024 inject 40 [IU] by subcutaneous injection once daily in the evening Insulin Glargine (Lantus U-100 Insulin) 100 unit/mL solution Discontinued 40 UNIT SUBCUT Every evening June 12, 2021 12:00am January 17, 2024 5:19pm Lantus SoloStar 100 UNIT/ML as directed Subcutaneous 35 UNITS Active Lantus SoloStar 100 UNIT/ML as directed Subcutaneous 25units Active ketoconazole 20 mg/ml jo-anna gali gillesbrett (20 sources) Azole Antifungal Start: 12-26-2024 End: 02-09-2025 Start: 08-07-2024 End: 11-03-2024 Start: 02-15-2024 End: 04-29-2024 Start: 02-15-2024 End: 04-29-2024 Ketoconazole 2 % cream Disco ntinued 1 APPLIC TOPICAL Daily February 15, 2024 12:00am April 29, 2024 1:36pm ketorolac tromethamine 5 mg/ml ophthalmic solution (20 sources) Nonsteroidal Anti-inflammatory Drug, Cyclooxygenase Inhibitor Start: 06-11-2021 End: 06-12-2021 Start: 06-11-2021 End: 06-12-2021 Ketorolac 0.5 % drops Discon tinued DROPS June 11, 2021 12:00am June 12, 2021 3:16am Start: 06-11-2021 End: 06-12-2021 Ketorolac Discontinued DROPS SOLUTION/ DROPS June 11, 2021 12:00am June 12, 2021 3:16am lisinopril 20 mg oral tablet (20 sources) Angiotensin Converting Enzyme Inhibitor Start: 03-07-2021 End: 05-07-2024 take 2 tablets by mouth in the m orning lisinopril 10 MG tablet Take 20 mg by mouth in the morning. Active magnesium oxide 400 mg oral tablet (13 sources) Start: 02-09-2025 End: 03-12-2025 meloxicam 15 mg oral tablet (12 sources) Nonsteroidal Anti-inflammatory Drug Start: 08-25-2021 take 1 tablet by mouth every twenty-four hours Mobic 15 MG 1 tablet Orally Once a day for 30 day(s) Aug, Not-Taking metroNIDAZOLE 500 mg oral tablet (20 sources) Nitroimidazole Antimicrobial Start: 01-14-2025 End: 02-09-2025 Start: 09-16-2024 End: 10-16-2024 Start: 04-10-2024 End: 06-05-2024 Start: 01-30-2024 End: 03-25-2024 Start: 01-29-2024 End: 01-30-2024 Start: 01-29-2024 End: 01-30-2024 take 1 tablet [...] by joesph th every eight hours nitrofurantoin, macrocrystal s 100 mg oral capsule (8 sources) Nitrofuran Antibacterial Start: 03-24-2025 End: 04-21-2025 nystatin 100 unt/mg topical powder (20 sources) Polyene Antifungal Start: 02-19-2025 End: 03-12-2025 Start: 04-29-2024 End: 06-05-2024 Start: 04-29-2024 End: 06-05-2024 take 1 mL [...] End: 07-16-2024 Start: 01-17-2024 End: 07-16-2024 Nystatin 100,000 unit/gram c ream Discontinued 1 APPLIC TOPICAL Twice daily as needed June 05, 2024 12:06pm July 16, 2024 10:36am Nystatin [id number] UNIT/GM 1 application Externally Twice a day for 10 days Active Nystatin 605475 UNIT/GM 1 application Externally Twice a day for 10 days Active nystatin 076067 unt/ml / triamcinolone acetonide 1 mg/ml topical cream (20 sources) Polyene Antifungal, Corticosteroid Start: 07-07-2024 End: 11-03-2024 Start: 07-07-2024 End: 11-03-2024 Nystatin-Triamcinolone 100,0 00-0.1 unit/g-% cream Discontinued 1 APPLIC TOPICAL Twice daily July 07, 2024 12:00am November 03, 2024 12:41pm Nystatin 100,000 unit/mL suspension (7 sources) Start: [...] June 05, 2024 11:06am swish and swallow [place] 5-Ops-Fdw-Fish Oil (Fish Oil) 1,000 mg (120 mg-180 mg) capsule (19 sources) Start: 01-17-2024 End: 04-03-2024 take 1 capsule by mouth once daily [place] 8-Tjl-Fhi-Fish Oil (Fish Oil) 1,000 mg (120 mg-180 mg) capsule Discontinued 1 CAP PO Daily January 17, 2024 12:00am April 03, 2024 10:49am Start: 01-17-2024 End: 04-03-2024 take 1 capsule by mouth once daily [place] 5-Vdp-Lkd-Fish Oil (Fish Oil) 1,000 mg (120 mg-180 mg) capsule Discontinued 1 CAP PO Daily January 17, 2024 1:00am April 03, 2024 11:49am Start: 01-17-2024 take 1 capsule by [facility] once daily [place] 7-Ejv-Asw-Fish Oil (Fish Oil) 1,000 mg (120 mg-180 mg) capsule Active 1 CAP PO Daily January 17, 2024 1:00am 24 hr oxybutynin chloride 10 mg extended release oral tablet (20 sources) Cholinergic Muscarinic Antagonist Start: 02-15-2024 End: 06-05-2024 microencapsulated potassium chloride 10 meq extended release oral tablet (13 sources) Start: 02-09-2025 End: 02-19-2025 propranolol hydrochloride 40 mg oral tablet (20 sources) beta-Adrenergic Khadijah Start: 03-05-2025 End: 06-04-2025 Start: 12-26-2024 End: 03-05-2025 selenomethionine 0.2 mg oral tablet (20 sources) Start: 01-17-2024 End: 04-03-2024 sodium chloride 0.111 meq/ml nasal spray (16 sources) Start: 10-25-2024 End: 11-03-2024 spironolactone 50 mg oral ta blet (20 sources) Aldosterone Antagonist Start: 03-28-2024 End: 07-16-2024 Start: 01-17-2024 End: 05-07-2024 take 1 tablet by joesph th every twenty-four hours Spironolactone 25 MG 1 tablet Orally Once a day Active sucralfate 1000 mg oral tabl et (20 sources) Aluminum Complex Start: 02-19-2025 End: 03-05-2025 Start: 02-19-2025 End: 03-05-2025 take 1 tablet by mouth once before mealtime Sucralfate 1 gram tablet Discontinued 1 GM PO 3x/Day before meals February 19, 2025 12:00am March 05, 2025 9:39am Start: 01-14-2025 End: 02-09-2025 Start: 01-14-2025 End: 02-09-2025 take 1 tablet by mouth once before mealtime Sucralfate (Carafate) 1 gram tablet Discontinued 1 GM PO 3x/Day before meals January 14, 2025 1:00am February 09, 2025 2:53pm Start: 01-17-2024 End: 04-03-2024 Start: 03-23-2023 take 1 tablet by joesph th every twelve hours take 1 tablet by joesph th every twelve hours Sucralfate 1 GM 1 tablet on an empty stomach Orally Twice a day Active triamcinolone acetonide 5 mg /ml topical cream (12 sources) Corticosteroid Start: 04-16-2025 End: 06-10-2025 24 hr venlafaxine 37.5 mg extended release oral capsule (20 sources) Serotonin and Norepinephrine Reuptake Inhibitor Start: 06-11-2021 End: 01-17-2024 Problems Active Problems Problem Classification Problem Date Documented Date Episodic/Chronic Abdominal pain (20 sources) Epigastric pain; Translations: [Indigestion] 08-06-2022 Episodic Acquired foot deformities (12 sources) Acquired hammer toe of right foot; Translations: [Other hammer toe(s) (acquired), right foot] Onset: 4 07-03-2024 Chronic Allergic reactions (12 sources) Contact dermatitis; Translations: [Unspecified contact dermatitis, [...] Coronary arteriosclerosis; Translations: [Atherosclerotic heart disease of [place] coronary artery without angina pectoris] Onset: 2 [...] abscess without bleeding] Onset: 2 07-03-2024 Chronic E Codes: Struck by; against (9 sources) Fall; Translations: [Striking against unspecified object with subsequent fall, initial encounter] 06-01-2025 Episodic Esophageal disorders (20 sources) Gastroesophageal reflux disease; Translations: [Gastroesophageal reflux disease without esophagitis] Onset: 3 07-27-2022 Chronic Essential hypertension (20 sources) Hypertensive disorder; Translations: [Essential (primary) hypertension] Onset: 2 07-27-2022 Chronic Genitourinary symptoms and ill-defined conditions (20 sources) Genuine stress incontinence; Translations: [Stress incontinence (female) (male)] Onset: 4 Resolved: 4 Chronic Heart valve disorders (12 sources) Aortic valve [...] sources) Long-term current use of insulin; Translations: [nursing home (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 insulin] Onset: 4 Resolved: 4 01-17-2024 Episodic Other aftercare (1 source) Other terminal carman (current) drug therapy; Translations: [OTH CARE HOME CURRENT DRUG THERAPY] Onset: 3 Episodic Other aftercare (1 source) nursing home (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 anticoagulants; 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] Onset: 3 Episodic Other [...] UNS] Onset: 3 Chronic Other circulatory disease (16 sources) Elevated blood pressure; Translations: [Elevated blood-pressure [...] Translations: [Chalazion] 01-18-2024 Episodic Other eye disorders (17 sources) Chalazion of right eyelid; Translations: [Chalazion right eye, unspecified eyelid] Onset: 4 07-03-2024 Episodic Other gastrointestinal disorders (18 sources) Irritable bowel syndrome; Translations: [Irritable bowel [...] (19 sources) Diarrhea, unspecified; Translations: [Diarrhea] Onset: Episodic Other gastrointestinal disorders (20 sources) Swollen abdomen; Translations: [Generalized intra-abdominal and pelvic swelling, mass and lump] Onset: 4 05-07-2024 Episodic Other gastrointestinal disorders (20 sources) Generalized intra-abdominal and pelvic swelling, mass and lump; Translations: [Abdominal or pelvic swelling, mass, or lump, generalized] 05-07-2024 Episodic Other gastrointestinal disorders (16 sources) Abdominal bloating; Translations: [Abdominal distension (gaseous)] [...] 07-03-2024 Chronic Other inflammatory condition of skin (15 sources) Seborrheic dermatitis of scalp; Translations: [Seborrhea [...] nutritional; endocrine; and metabolic disorders (12 sources) Severe obesity; Translations: [Class 3 severe [...] source) Other amnesia Episodic Residual codes; unclassified (16 sources) Delirium; Translations: [Disorientation, unspecified] 10-28-2024 Episodic Residual codes; unclassified (2 sources) Confusional state; Translations: [Disorientation, unspecified] 06-04-2025 Episodic Retinal detachments; defects; vascular occlusion; and [...] disc degeneration, lumbar region] Onset: 4 Chronic Syncope (20 sources) Near syncope; Translations: [Syncope [...] 4 Resolved: 4 05-07-2024 Episodic Viral infection (16 sources) Disease caused by 2019-nCoV; Translations: [COVID-19] [...] Translations: [Bradycardia, unspecified] Onset: 4 10-20-2024 Episodic Conditions associated with dizziness or vertigo (10 sources) Dizziness; Translations: [Dizziness and giddiness] Onset: 5 03-12-2025 Episodic Fluid and electrolyte disorders (20 sources) Dehydration; Translations: [Hypokalemia] Onset: 3 Episodic Genitourinary symptoms and ill-defined conditions (20 sources) Dysuria; Translations: [Dysuria] Onset: 4 07-17-2024 Episodic Malaise and fatigue (20 sources) Weakness; Translations: [Asthenia] Onset: 4 Episodic Noninfectious gastroenteritis (20 sources) Chronic diarrhea; Translations: [Noninfective gastroenteritis and colitis, unspecified] Onset: 3 07-27-2022 Episodic Other aftercare (5 sources) nursing home (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 insulin; 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 [address] Albumin [Mass/volume] in Ser um or Plasma by Bromocresol green (BCG) dye binding methoOrdered By: Shantel Steven on 06-15-2025 Albumin BCG dye [Mass/Vol] 2.8 g/dL Low 3.5-5.7 [facility] Alkaline phosphatase [Enzyma tic activity/volume] in Serum or PlasmaOrdered By: Shantel Steven on 06-15-2025 ALP [Catalytic activity/Vol] 103 U/L Normal 34-104 [facility] Comment on above: Result Comment: PERF ORMED BY: [place] [address] PATHOLOGIST PAPER MACHINE OPERATOR SIMON LINTON M.D. Performed By: #### [facility] e[facility] #### [place] [address] [place] Aspartate aminotransferase [ Enzymatic activity/volume] in Serum or PlasmaOrdered By: Shantel Steven on 06-15-2025 AST [Catalytic activity/Vol] 13 U/L Normal 13-39 [facility] Comment on above: Performed By: #### [facility] #### [address] Bilirubin.total [Mass/volume ] in Serum or PlasmaOrdered By: Shantel Steven on 06-15-2025 Bilirubin [Mass/Vol] 0.5 mg/dL Normal 0.3-1.0 [facility] Comment on above: Performed By: #### [facility] #### [facility] [address] Calcium [Mass/volume] in Ser um or PlasmaOrdered By: Shantel Steven on 06-15-2025 Calcium [Mass/Vol] 8.3 mg/dL Low 8.6-10.3 [facility] Comment on above: Performed By: #### [facility] #### [address] Carbon dioxide, total [Moles /volume] in Serum or PlasmaOrdered By: Shantel Steven on 06-15-2025 CO2 [Moles/Vol] 31.9 mmol/L High 21.0-31.0 [facility] Comment on above: Performed By: #### [facility] #### [address] Chloride [Moles/volume] in S oziel or PlasmaOrdered By: Shantel Steven on 06-15-2025 Chloride [Moles/Vol] 103 mmol/L Normal 98-107 [facility] Comment on above: Performed By: #### [facility] #### [address] Comprehensive Metabolic Pane daniele 06-15-2025 Albumin [Mass/Vol] 2.8 g/dL Low 3.5-5.7 [facility] Comment on above: Performed By: #### [facility] #### [place] [address] [place] GFR/1.73 sq M.predicted MDRD (S/P/Bld) [Vol rate/Area] 38.841 mL/min/{1.73_m2} Normal [facility] Comment on above: Performed By: #### [facility] #### [address] Creatinine [Mass/volume] in Serum or PlasmaOrdered By: Shantel Steven on 06-15-2025 Creatinine [Mass/Vol] 1.39 mg/dL High 0.60-1.20 [facility] Comment on above: Performed By: #### [facility] #### [facility] [address] Glucose [Mass/volume] in Ser um or PlasmaOrdered By: Shantel Setven on 06-15-2025 Glucose [Mass/Vol] 235 mg/dL High 70-100 [facility] Comment on above: Result Comment: [place] Glucose Reference Range is dependent on time and content of last meal. Glucose of more than 200 mg/dL in a nonstressed, ambulatory subject supports the diagnosis of Diabetes Mellitus. ADA recommended reference range Performed By: #### [facility] #### [address] No Panel InformationOrdered By: Shantel Steven on 06-15-2025 38.841 mL/Min [facility] N/A [facility] Potassium [Moles/volume] in Serum or PlasmaOrdered By: Shantel Steven on 06-15-2025 Potassium [Moles/Vol] 3.7 mmol/L Normal 3.5-5.1 [facility] Comment on above: Performed By: #### [facility] #### [address] Protein [Mass/volume] in Ser um or PlasmaOrdered By: Shantel Steven on 06-15-2025 Protein [Mass/Vol] 6.3 g/dL Low 6.4-8.9 [facility] Comment on above: Performed By: #### [facility] #### [address] Serum globulin measurement b y calculation (mass/volume)Ordered By: Shantel Steven on 06-15-2025 Globulin (S) [Mass/Vol] 3.5 g/dL [facility] Comment on above: Performed By: #### [facility] #### [address] Serum or plasma albumin/glob ulin mass ratioOrdered By: Shantel Steven on 06-15-2025 Albumin/Globulin [Mass ratio] 0.8 {ratio} [facility] Comment on above: Performed By: #### [facility] #### [facility] [address] Serum or plasma anion gap de terminationOrdered By: Shantel Steven on 06-15-2025 Anion gap [Moles/Vol] 9.8 mmol/L Normal 6.0-15.0 [facility] Comment on above: Performed By: #### [facility] #### [facility] [address] [place] [address] Sodium [Moles/volume] in Ser um or PlasmaOrdered By: Shantel Steven on 06-15-2025 Sodium [Moles/Vol] 141 mmol/L Normal 136-145 [facility] Comment on above: Performed By: #### [facility] #### [address] Urea nitrogen [Mass/volume] in Serum or PlasmaOrdered By: Shantel Steven on 06-15-2025 Urea nitrogen [Mass/Vol] 31 mg/dL High 7-25 [facility] Comment on above: Performed By: #### [facility] #### [facility] [address] [place] [address] Basophils Auto (Bld) [#/Vol] Ordered By: Osbaldo Marlow on 06-10-2025 Basophils (Bld) [#/Vol] 0.1 10 3/uL 0.0-0.1 [facility] Basophils/100 WBC Auto (Bld) Ordered By: Osbaldo Marlow on 06-10-2025 Basophils/100 WBC (Bld) 1.1 % 0.2-2.0 [facility] Eosinophils/100 WBC Auto (Bl d)Ordered By: Osbaldo Marlow on 06-10-2025 Eosinophils/100 WBC (Bld) 2.1 % 0.9-7.0 [facility] Erythrocyte distribution wid th Auto (RBC) [Ratio]Ordered By: Osbaldo Marlow on 06-10-2025 Erythrocyte distribution width (RBC) [Ratio] 16.4 % High 11.0-15.0 [facility] Estimated glomerular filtrat ion rate (GFR) non- AmericanOrdered By: Osbaldo Marlow on 06-10-2025 GFR/1.73 sq M.predicted among non-blacks MDRD (S/P/Bld) [Vol rate/Area] 27 mL/min/{1.73_m2} Low >=60 mL/min/1.73 m 2 [facility] Globulin Calc (S) [Mass/Vol] Ordered By: Osbaldo Marlow on 06-10-2025 Globulin (S) [Mass/Vol] 4.6 g/dL [facility] Hematocrit Auto (Bld) [Volum e fraction]Ordered By: Osbaldo Marlow on 06-10-2025 Hematocrit (Bld) [Volume fraction] 31.3 % Low 36.0-48.0 [facility] Hemoglobin [Mass/volume] in BloodOrdered By: Osbaldo Marlow on 06-10-2025 Hemoglobin (Bld) [Mass/Vol] 10.1 g/dL Low 12.0-16.0 [facility] Leukocytes [#/volume] correc gali for nucleated erythrocytes in Blood by Automated counOrdered By: Osbaldo Marlow on 06-10-2025 WBC corrected for nucl RBC Auto (Bld) [#/Vol] 9.0 10 3/uL 4.0-11.0 [facility] Lymphocytes Auto (Bld) [#/Vo l]Ordered By: Osbaldo Marlow on 06-10-2025 Lymphocytes (Bld) [#/Vol] 1.4 10 3/uL 1.2-3.8 [facility] Lymphocytes/100 WBC Auto (Bl d)Ordered By: Osbaldo Marlow on 06-10-2025 Lymphocytes/100 WBC (Bld) 15.0 % Low 20.5-60.0 [facility] MCH Auto (RBC) [Entitic mass ]Ordered By: Osbaldo Marlow on 06-10-2025 MCH (RBC) [Entitic mass] 29.6 pg 26.7-34.0 [facility] MCHC Auto (RBC) [Mass/Vol]Or dered By: Osbaldo Marlow on 06-10-2025 MCHC (RBC) [Mass/Vol] 32.3 g/dL 29.9-35.2 [facility] MCV Auto (RBC) [Entitic vol] Ordered By: Osbaldo Marlow on 06-10-2025 MCV (RBC) [Entitic vol] 91.8 fL 81.0-99.0 [facility] Monocytes Auto (Bld) [#/Vol] Ordered By: Osbaldo Marlow on 06-10-2025 Monocytes (Bld) [#/Vol] 0.5 10 3/uL 0.3-0.8 [facility] Monocytes/100 WBC Auto (Bld) Ordered By: Osbaldo Marlow on 06-10-2025 Monocytes/100 WBC (Bld) 5.6 % 1.7-12.0 [facility] Neutrophils Auto (Bld) [#/Vo l]Ordered By: Osbaldo Marlow on 06-10-2025 Neutrophils (Bld) [#/Vol] 6.8 10 3/uL High 1.4-6.5 [facility] Neutrophils/100 WBC Auto (Bl d)Ordered By: Osbaldo Marlow on 06-10-2025 Neutrophils/100 WBC (Bld) 75.9 % High 43.0-75.0 [facility] No Panel InformationOrdered By: Osbaldo Marlow on 06-10-2025 2.0 mg/dL 1.8-2.4 [facility] 4.4 mg/dL 2.6-4.7 [facility] 1.7 g/dL Low 3.4-5.0 [facility] 0.2 10 3/uL 0.0-0.7 [facility] 96 U/L 46-116 [facility] 14 U/L 14-59 [facility] 15 U/L 15-37 [facility] 16.6 [facility] 0.03 10 3/uL 0.00-0.03 [facility] 30.0 mg/dL High 7.0-18.0 [facility] 0.3 % 0.0-0.5 [facility] 8.2 mg/dL Low 8.5-10.1 [facility] 108 mmol/L High 98-107 [facility] 30.5 mmol/L 21.0-32.0 [facility] 1.81 mg/dL High 0.55-1.02 [facility] 33 Low >=60 mL/min/1.73 m 2 [facility] 117 mg/dL High 74-106 [facility] 3.3 mmol/L Low 3.5-5.1 [facility] 146 mmol/L High 136-145 [facility] 0.4 mg/dL 0.2-1.0 [facility] 6.3 g/dL Low 6.4-8.2 [facility] Platelet mean volume Auto (B ld) [Entitic vol]Ordered By: Osbaldo Marlow on 06-10-2025 Platelet mean volume (Bld) [Entitic vol] 10.0 fL 9.5-13.5 [facility] Platelets Auto (Bld) [#/Vol] Ordered By: Osbaldo Marlow on 06-10-2025 Platelets (Bld) [#/Vol] 248 10 3/uL 150-450 [facility] RBC Auto (Bld) [#/Vol]Ordere d By: Osbaldo Marlow on 06-10-2025 RBC (Bld) [#/Vol] 3.41 10 6/uL Low 4.20-5.40 [facility] Serum or plasma albumin/glob ulin mass ratioOrdered By: Osbaldo Marlow on 06-10-2025 Albumin/Globulin [Mass ratio] 0.4 {ratio} [facility] Serum or plasma anion gap de terminationOrdered By: Osbaldo Marlow on 06-10-2025 Anion gap [Moles/Vol] 10.8 mmol/L [facility] Basophils Auto (Bld) [#/Vol] Ordered By: Osbaldo Marlow on 06-09-2025 Basophils (Bld) [#/Vol] 0.1 10 3/uL 0.0-0.1 [facility] Basophils/100 WBC Auto (Bld) Ordered By: Osbaldo Marlow on 06-09-2025 Basophils/100 WBC (Bld) 1.1 % 0.2-2.0 [facility] Eosinophils/100 WBC Auto (Bl d)Ordered By: Osbaldo Marlow on 06-09-2025 Eosinophils/100 WBC (Bld) 1.8 % 0.9-7.0 [facility] Erythrocyte distribution wid th Auto (RBC) [Ratio]Ordered By: Osbaldo Marlow on 06-09-2025 Erythrocyte distribution width (RBC) [Ratio] 15.9 % High 11.0-15.0 [facility] Estimated glomerular filtrat ion rate (GFR) non- AmericanOrdered By: Cheng Aviles on 06-09-2025 GFR/1.73 sq M.predicted among non-blacks MDRD (S/P/Bld) [Vol rate/Area] 33 mL/min/{1.73_m2} Low >=60 mL/min/1.73 m 2 [facility] Globulin Calc (S) [Mass/Vol] Ordered By: Cheng Aviles on 06-09-2025 Globulin (S) [Mass/Vol] 4.9 g/dL [facility] Hematocrit Auto (Bld) [Volum e fraction]Ordered By: Osbaldo Marlow on 06-09-2025 Hematocrit (Bld) [Volume fraction] 31.8 % Low 36.0-48.0 [facility] Hemoglobin [Mass/volume] in BloodOrdered By: Osbaldo Marlow on 06-09-2025 Hemoglobin (Bld) [Mass/Vol] 10.4 g/dL Low 12.0-16.0 [facility] Leukocytes [#/volume] correc gali for nucleated erythrocytes in Blood by Automated counOrdered By: Osbaldo Marlow on 06-09-2025 WBC corrected for nucl RBC Auto (Bld) [#/Vol] 8.3 10 3/uL 4.0-11.0 [facility] Lymphocytes Auto (Bld) [#/Vo l]Ordered By: Osbaldo Marlow on 06-09-2025 Lymphocytes (Bld) [#/Vol] 1.4 10 3/uL 1.2-3.8 [facility] Lymphocytes/100 WBC Auto (Bl d)Ordered By: Osbaldo Marlow on 06-09-2025 Lymphocytes/100 WBC (Bld) 17.3 % Low 20.5-60.0 [facility] MCH Auto (RBC) [Entitic mass ]Ordered By: Osbaldo Marlow on 06-09-2025 MCH (RBC) [Entitic mass] 29.3 pg 26.7-34.0 [facility] MCHC Auto (RBC) [Mass/Vol]Or dered By: Osbaldo Marlow on 06-09-2025 MCHC (RBC) [Mass/Vol] 32.7 g/dL 29.9-35.2 [facility] MCV Auto (RBC) [Entitic vol] Ordered By: Osbaldo Marlow on 06-09-2025 MCV (RBC) [Entitic vol] 89.6 fL 81.0-99.0 [facility] Monocytes Auto (Bld) [#/Vol] Ordered By: Osbaldo Marlow on 06-09-2025 Monocytes (Bld) [#/Vol] 0.5 10 3/uL 0.3-0.8 [facility] Monocytes/100 WBC Auto (Bld) Ordered By: Osbaldo Marlow on 06-09-2025 Monocytes/100 WBC (Bld) 6.5 % 1.7-12.0 [facility] Neutrophils Auto (Bld) [#/Vo l]Ordered By: Osbaldo Marlow on 06-09-2025 Neutrophils (Bld) [#/Vol] 6.1 10 3/uL 1.4-6.5 [facility] Neutrophils/100 WBC Auto (Bl d)Ordered By: Osbaldo Marlow on 06-09-2025 Neutrophils/100 WBC (Bld) 72.9 % 43.0-75.0 [facility] No Panel InformationOrdered By: Osbaldo Marlow on 06-09-2025 1.3 mg/dL Low 1.8-2.4 [facility] 3.8 mg/dL 2.6-4.7 [facility] 0.2 10 3/uL 0.0-0.7 [facility] 0.03 10 3/uL 0.00-0.03 [facility] 0.4 % 0.0-0.5 [facility] No Panel InformationOrdered By: Cheng Aviles on 06-09-2025 1.7 g/dL Low 3.4-5.0 [facility] 104 U/L 46-116 [facility] 14 U/L 14-59 [facility] 13 U/L Low 15-37 [facility] 18.3 [facility] 28.0 mg/dL High 7.0-18.0 [facility] 8.1 mg/dL Low 8.5-10.1 [facility] 106 mmol/L 98-107 [facility] 29.8 mmol/L 21.0-32.0 [facility] 1.53 mg/dL High 0.55-1.02 [facility] 40 Low >=60 mL/min/1.73 m 2 [facility] 79 mg/dL 74-106 [facility] 2.7 mmol/L Critically low 3.5-5.1 [facility] 146 mmol/L High 136-145 [facility] 0.4 mg/dL 0.2-1.0 [facility] 6.6 g/dL 6.4-8.2 [facility] Platelet mean volume Auto (B ld) [Entitic vol]Ordered By: Osbaldo Marlow on 06-09-2025 Platelet mean volume (Bld) [Entitic vol] 11.2 fL 9.5-13.5 [facility] Platelets Auto (Bld) [#/Vol] Ordered By: Osbaldo Marlow on 06-09-2025 Platelets (Bld) [#/Vol] 222 10 3/uL 150-450 [facility] RBC Auto (Bld) [#/Vol]Ordere d By: Osbaldo Marlow on 06-09-2025 RBC (Bld) [#/Vol] 3.55 10 6/uL Low 4.20-5.40 [facility] Serum or plasma albumin/glob ulin mass ratioOrdered By: Cheng Aviles on 06-09-2025 Albumin/Globulin [Mass ratio] 0.3 {ratio} [facility] Serum or plasma anion gap de terminationOrdered By: Cheng Aviles on 06-09-2025 Anion gap [Moles/Vol] 12.9 mmol/L [facility] Basophils Auto (Bld) [#/Vol] Ordered By: Jarred Galan on 06-08-2025 Basophils (Bld) [#/Vol] 0.1 10 3/uL 0.0-0.1 [facility] Basophils/100 WBC Auto (Bld) Ordered By: Jarred Galan on 06-08-2025 Basophils/100 WBC (Bld) 1.2 % 0.2-2.0 [facility] Eosinophils/100 WBC Auto (Bl d)Ordered By: Jarred Galan on 06-08-2025 Eosinophils/100 WBC (Bld) 1.9 % 0.9-7.0 [facility] Erythrocyte distribution wid th Auto (RBC) [Ratio]Ordered By: Jarred Galan on 06-08-2025 Erythrocyte distribution width (RBC) [Ratio] 16.1 % High 11.0-15.0 [facility] Estimated glomerular filtrat ion rate (GFR) non- AmericanOrdered By: Jarred Galan on 06-08-2025 GFR/1.73 sq M.predicted among non-blacks MDRD (S/P/Bld) [Vol rate/Area] 29 mL/min/{1.73_m2} Low >=60 mL/min/1.73 m 2 [facility] Hematocrit Auto (Bld) [Volum e fraction]Ordered By: Jarred Galan on 06-08-2025 Hematocrit (Bld) [Volume fraction] 35.3 % Low 36.0-48.0 [facility] Hemoglobin [Mass/volume] in BloodOrdered By: Jarred Galan on 06-08-2025 Hemoglobin (Bld) [Mass/Vol] 11.4 g/dL Low 12.0-16.0 [facility] Leukocytes [#/volume] correc gali for nucleated erythrocytes in Blood by Automated counOrdered By: Jarred Galan on 06-08-2025 WBC corrected for nucl RBC Auto (Bld) [#/Vol] 8.5 10 3/uL 4.0-11.0 [facility] Lymphocytes Auto (Bld) [#/Vo l]Ordered By: Jarred Galan on 06-08-2025 Lymphocytes (Bld) [#/Vol] 1.1 10 3/uL Low 1.2-3.8 [facility] Lymphocytes/100 WBC Auto (Bl d)Ordered By: Jarred Galan on 06-08-2025 Lymphocytes/100 WBC (Bld) 13.3 % Low 20.5-60.0 [facility] MCH Auto (RBC) [Entitic mass ]Ordered By: Jarred Galan on 06-08-2025 MCH (RBC) [Entitic mass] 29.2 pg 26.7-34.0 [facility] MCHC Auto (RBC) [Mass/Vol]Or dered By: Jarred Galan on 06-08-2025 MCHC (RBC) [Mass/Vol] 32.3 g/dL 29.9-35.2 [facility] MCV Auto (RBC) [Entitic vol] Ordered By: Jarred Galan on 06-08-2025 MCV (RBC) [Entitic vol] 90.3 fL 81.0-99.0 [facility] Monocytes Auto (Bld) [#/Vol] Ordered By: Jarred Galan on 06-08-2025 Monocytes (Bld) [#/Vol] 0.4 10 3/uL 0.3-0.8 [facility] Monocytes/100 WBC Auto (Bld) Ordered By: Jarred Galan on 06-08-2025 Monocytes/100 WBC (Bld) 5.2 % 1.7-12.0 [facility] Neutrophils Auto (Bld) [#/Vo l]Ordered By: Jarred Galan on 06-08-2025 Neutrophils (Bld) [#/Vol] 6.6 10 3/uL High 1.4-6.5 [facility] Neutrophils/100 WBC Auto (Bl d)Ordered By: Jarred Galan on 06-08-2025 Neutrophils/100 WBC (Bld) 78.2 % High 43.0-75.0 [facility] No Panel InformationOrdered By: Jarred Galan on 06-08-2025 SEEN #/LPF Abnormal NONE SEEN [facility] None Seen #/HPF None Seen [facility] TRACE #/HPF Abnormal NONE SEEN [facility] MODERATE [facility] CLEAR CLEAR [facility] LT. YELLOW YELLOW [facility] 250 mg/dL Abnormal NEGATIVE [facility] SMALL Abnormal NONE SEEN [facility] 6.5 5.0-9.0 [facility] >=300 mg/dL Abnormal NEG/TRACE [facility] 0-2 #/HPF 0-2 [facility] 1.020 1.005-1.025 [facility] FEW #/LPF Abnormal NONE/RARE [facility] RARE #/LPF Abnormal NONE SEEN [facility] 0.2 EU/dL 0.2-1.0 [facility] 2-5 #/HPF Abnormal NONE SEEN [facility] Negative NEGATIVE [facility] 49976.0 pg/mL Critically high <=1800.0 [facility] 26.7 pg/mL 4.0-51.3 [facility] 0.7 mmol/L 0.4-2.0 [facility] 17.8 [facility] 30.0 mg/dL High 7.0-18.0 [facility] 0.2 10 3/uL 0.0-0.7 [facility] 8.7 mg/dL 8.5-10.1 [facility] 105 mmol/L 98-107 [facility] 30.5 mmol/L 21.0-32.0 [facility] 1.69 mg/dL High 0.55-1.02 [facility] 0.02 10 3/uL 0.00-0.03 [facility] 35 Low >=60 mL/min/1.73 m 2 [facility] 0.2 % 0.0-0.5 [facility] 177 mg/dL High 74-106 [facility] 3.2 mmol/L Low 3.5-5.1 [facility] 144 mmol/L 136-145 [facility] Platelet mean volume Auto (B ld) [Entitic vol]Ordered By: Jarred Galan on 06-08-2025 Platelet mean volume (Bld) [Entitic vol] 9.8 fL 9.5-13.5 [facility] Platelets Auto (Bld) [#/Vol] Ordered By: Jarred Galan on 06-08-2025 Platelets (Bld) [#/Vol] 291 10 3/uL 150-450 [facility] RBC Auto (Bld) [#/Vol]Ordere d By: Jarred Angelia on 06-08-2025 RBC (Bld) [#/Vol] 3.91 10 6/uL Low 4.20-5.40 [facility] Serum or plasma anion gap de terminationOrdered By: Jarred Galan on 06-08-2025 Anion gap [Moles/Vol] 11.7 mmol/L Fi [facility] Urine Cultureon 06-02-2025 Bacteria identified Cx Nom (U) 50,000 colonies/ml mixed bacterial skin contaminants 2 Days PERFORMED BY: [facility] [place] [address] [place] [address] PATHOLOGIST PAPER MACHINE OPERATOR SIMON Lynn [facility] Comment on above: Performed By: #### M Bela, BMP #### [facility] [address] Urine cultureOrdered By: Alessia Steven on 06-02-2025 Bacteria identified Cx Nom (U) 2 Days [facility] Estimated glomerular filtrat ion rate (GFR) non- AmericanOrdered By: Monica Stewart on 05-31-2025 GFR/1.73 sq M.predicted among non-blacks MDRD (S/P/Bld) [Vol rate/Area] 31 mL/min/{1.73_m2} Low >=60 mL/min/1.73 m 2 [facility] No Panel InformationOrdered By: Monica Stewart on 05-31-2025 31.3 [facility] 50.0 mg/dL High 7.0-18.0 [facility] 8.2 mg/dL Low 8.5-10.1 [facility] 106 mmol/L 98-107 [facility] 26.2 mmol/L 21.0-32.0 [facility] 1.60 mg/dL High 0.55-1.02 [facility] 38 Low >=60 mL/min/1.73 m 2 [facility] 103 mg/dL 74-106 [facility] 3.8 mmol/L 3.5-5.1 [facility] 142 mmol/L 136-145 [facility] Serum or plasma anion gap de terminationOrdered By: Monica Stewart on 05-31-2025 Anion gap [Moles/Vol] 13.6 [facility]th[facility] distribution wid th Auto (RBC) [Ratio]Ordered By: Monica Stewart on 05-30-2025 Erythrocyte distribution width (RBC) [Ratio] 17.2 % High 11.0-15.0 [facility] Estimated glomerular filtrat ion rate (GFR) non- AmericanOrdered By: Monica Stewart on 05-30-2025 GFR/1.73 sq M.predicted among non-blacks MDRD (S/P/Bld) [Vol rate/Area] 28 mL/min/{1.73_m2} Low >=60 mL/min/1.73 m 2 [facility] Hematocrit Auto (Bld) [Volum e fraction]Ordered By: Monica Stewart on 05-30-2025 Hematocrit (Bld) [Volume fraction] 32.9 % Low 36.0-48.0 [facility] Hemoglobin [Mass/volume] in BloodOrdered By: Monica Stewart on 05-30-2025 Hemoglobin (Bld) [Mass/Vol] 10.6 g/dL Low 12.0-16.0 [facility] Leukocytes [#/volume] correc gali for nucleated erythrocytes in Blood by Automated counOrdered By: Monica Stewart on 05-30-2025 WBC corrected for nucl RBC Auto (Bld) [#/Vol] 18.7 10 3/uL High 4.0-11.0 [facility] MCH Auto (RBC) [Entitic mass ]Ordered By: Monica Stewart on 05-30-2025 MCH (RBC) [Entitic mass] 29.7 pg 26.7-34.0 [facility] MCHC Auto (RBC) [Mass/Vol]Or dered By: Monica Stewart on 05-30-2025 MCHC (RBC) [Mass/Vol] 32.2 g/dL 29.9-35.2 [facility] MCV Auto (RBC) [Entitic vol] Ordered By: Monica Stewart on 05-30-2025 MCV (RBC) [Entitic vol] 92.2 fL 81.0-99.0 [facility] No Panel InformationOrdered By: Monica Stewart on 05-30-2025 1.8 mg/dL 1.8-2.4 [facility] 26.4 [facility] 47.0 mg/dL High 7.0-18.0 [facility] 8.5 mg/dL 8.5-10.1 [facility] 106 mmol/L 98-107 [facility] 27.5 mmol/L 21.0-32.0 [facility] 1.78 mg/dL High 0.55-1.02 [facility] 33 Low >=60 mL/min/1.73 m 2 [facility] 97 mg/dL 74-106 [facility] 4.0 mmol/L 3.5-5.1 [facility] 143 mmol/L 136-145 [facility] Platelet mean volume Auto (B ld) [Entitic vol]Ordered By: Monica Stewart on 05-30-2025 Platelet mean volume (Bld) [Entitic vol] 10.3 fL 9.5-13.5 [facility] Platelets Auto (Bld) [#/Vol] Ordered By: Monica Stewart on 05-30-2025 Platelets (Bld) [#/Vol] 183 10 3/uL 150-450 [facility] RBC Auto (Bld) [#/Vol]Ordere d By: Monica Stewart on 05-30-2025 RBC (Bld) [#/Vol] 3.57 10 6/uL Low 4.20-5.40 [facility] Serum or plasma anion gap de terminationOrdered By: Monica Stewart on 05-30-2025 Anion gap [Moles/Vol] 13.5 mmol/L [facility] Basophils/100 WBC Manual cnt (Bld)Ordered By: Monica Stewart on 05-29-2025 Basophils/100 WBC (Bld) 0.0 % Low 0.2-2.0 [facility] Eosinophils/100 WBC Manual c nt (Bld)Ordered By: Monica Stewart on 05-29-2025 Eosinophils/100 WBC (Bld) 0.0 % Low 0.9-7.0 [facility] Erythrocyte distribution wid th Auto (RBC) [Ratio]Ordered By: Monica Stewart on 05-29-2025 Erythrocyte distribution width (RBC) [Ratio] 16.6 % High 11.0-15.0 [facility] Estimated glomerular filtrat ion rate (GFR) non- AmericanOrdered By: Monica Stewart on 05-29-2025 GFR/1.73 sq M.predicted among non-blacks MDRD (S/P/Bld) [Vol rate/Area] 33 mL/min/{1.73_m2} Low >=60 mL/min/1.73 m 2 [facility] Glucose mean value [Mass/vol ume] in Blood Estimated from glycated hemoglobinOrdered By: Monica Stewart on 05-29-2025 Average glucose Estimated from glycated hemoglobin (Bld) [Mass/Vol] 209 mg/dL [facility] Hematocrit Auto (Bld) [Volum e fraction]Ordered By: Monica Stewart on 05-29-2025 Hematocrit (Bld) [Volume fraction] 32.2 % Low 36.0-48.0 [facility] Hemoglobin A1c percentageOrd ered By: Monica Stewart on 05-29-2025 HbA1c (Bld) [Mass fraction] 8.9 % High 4.5-6.2 [facility] Hemoglobin [Mass/volume] in BloodOrdered By: Monica Stewart on 05-29-2025 Hemoglobin (Bld) [Mass/Vol] 10.6 g/dL Low 12.0-16.0 [facility] Leukocytes [#/volume] correc gali for nucleated erythrocytes in Blood by Automated counOrdered By: Monica Stewart on 05-29-2025 WBC corrected for nucl RBC Auto (Bld) [#/Vol] 19.8 10 3/uL High 4.0-11.0 [facility] MCH Auto (RBC) [Entitic mass ]Ordered By: Monica Stewart on 05-29-2025 MCH (RBC) [Entitic mass] 29.9 pg 26.7-34.0 [facility] MCHC Auto (RBC) [Mass/Vol]Or dered By: Monica Stewart on 05-29-2025 MCHC (RBC) [Mass/Vol] 32.9 g/dL 29.9-35.2 [facility] MCV Auto (RBC) [Entitic vol] Ordered By: Monica Stewart on 05-29-2025 MCV (RBC) [Entitic vol] 91.0 fL 81.0-99.0 [facility] No Panel InformationOrdered By: Monica Stewart on 05-29-2025 1.2 mg/dL Low 1.8-2.4 [facility] 0.00 10 3/uL 0.00-0.70 [facility] 27.5 [facility] 42.0 mg/dL High 7.0-18.0 [facility] 8.3 mg/dL Low 8.5-10.1 [facility] 105 mmol/L 98-107 [facility] 0.59 10 3/uL Low 1.20-3.80 [facility] 28.4 mmol/L 21.0-32.0 [facility] 3.0 % Low 20.5-60.0 [facility] 1.53 mg/dL High 0.55-1.02 [facility] 1.18 10 3/uL High 0.30-0.80 [facility] 40 Low >=60 mL/min/1.73 m 2 [facility] 6.0 % 1.7-12.0 [facility] 18.01 10 3/uL High 1.4-6.5 [facility] 130 mg/dL High 74-106 [facility] 3.8 mmol/L 3.5-5.1 [facility] 143 mmol/L 136-145 [facility] Platelet mean volume Auto (B ld) [Entitic vol]Ordered By: Monica Stewart on 05-29-2025 Platelet mean volume (Bld) [Entitic vol] 10.3 fL 9.5-13.5 [facility] Platelets Auto (Bld) [#/Vol] Ordered By: Monica Stewart on 05-29-2025 Platelets (Bld) [#/Vol] 208 10 3/uL 150-450 [facility] RBC Auto (Bld) [#/Vol]Ordere d By: Monica Stewart on 05-29-2025 RBC (Bld) [#/Vol] 3.54 10 6/uL Low 4.20-5.40 [facility] Segmented neutrophils/100 WB C Manual cnt (Bld)Ordered By: Monica Stewart on 05-29-2025 Segmented neutrophils/100 WBC (Bld) 91.0 % High 43.0-75.0 [facility] Serum or plasma anion gap de terminationOrdered By: Monica Stewart on 05-29-2025 Anion gap [Moles/Vol] 13.4 mmol/L [facility] Basophils Auto (Bld) [#/Vol] Ordered By: Analisa Bryant on 05-28-2025 Basophils (Bld) [#/Vol] 0.1 10 3/uL 0.0-0.1 [facility] Basophils/100 WBC Auto (Bld) Ordered By: Analisa Bryant on 05-28-2025 Basophils/100 WBC (Bld) 1.3 % 0.2-2.0 [facility] Eosinophils/100 WBC Auto (Bl d)Ordered By: Analisa Bryant on 05-28-2025 Eosinophils/100 WBC (Bld) 3.3 % 0.9-7.0 [facility] Erythrocyte distribution wid th Auto (RBC) [Ratio]Ordered By: Analisa Bryant on 05-28-2025 Erythrocyte distribution width (RBC) [Ratio] 16.9 % High 11.0-15.0 [facility] Estimated glomerular filtrat ion rate (GFR) non- AmericanOrdered By: Analisa Bryant on 05-28-2025 GFR/1.73 sq M.predicted among non-blacks MDRD (S/P/Bld) [Vol rate/Area] 34 mL/min/{1.73_m2} Low >=60 mL/min/1.73 m 2 [facility] Hematocrit Auto (Bld) [Volum e fraction]Ordered By: Analisa Bryant on 05-28-2025 Hematocrit (Bld) [Volume fraction] 34.4 % Low 36.0-48.0 [facility] Hemoglobin [Mass/volume] in BloodOrdered By: Analisa Bryant on 05-28-2025 Hemoglobin (Bld) [Mass/Vol] 11.2 g/dL Low 12.0-16.0 [facility] Leukocytes [#/volume] correc gali for nucleated erythrocytes in Blood by Automated counOrdered By: Analisa Bryant on 05-28-2025 WBC corrected for nucl RBC Auto (Bld) [#/Vol] 6.9 10 3/uL 4.0-11.0 [facility] Lymphocytes Auto (Bld) [#/Vo l]Ordered By: Analisa Bryant on 05-28-2025 Lymphocytes (Bld) [#/Vol] 1.4 10 3/uL 1.2-3.8 [facility] Lymphocytes/100 WBC Auto (Bl d)Ordered By: Analisa Bryant on 05-28-2025 Lymphocytes/100 WBC (Bld) 20.0 % Low 20.5-60.0 [facility] MCH Auto (RBC) [Entitic mass ]Ordered By: Analisa Bryant on 05-28-2025 MCH (RBC) [Entitic mass] 29.7 pg 26.7-34.0 [facility] MCHC Auto (RBC) [Mass/Vol]Or dered By: Analisa Bryant on 05-28-2025 MCHC (RBC) [Mass/Vol] 32.6 g/dL 29.9-35.2 [facility] MCV Auto (RBC) [Entitic vol] Ordered By: Analisa Bryant on 05-28-2025 MCV (RBC) [Entitic vol] 91.2 fL 81.0-99.0 [facility] Monocytes Auto (Bld) [#/Vol] Ordered By: Analisa Bryant on 05-28-2025 Monocytes (Bld) [#/Vol] 0.6 10 3/uL 0.3-0.8 [facility] Monocytes/100 WBC Auto (Bld) Ordered By: Analisa Bryant on 05-28-2025 Monocytes/100 WBC (Bld) 8.9 % 1.7-12.0 [facility] Neutrophils Auto (Bld) [#/Vo l]Ordered By: Analisa Bryant on 05-28-2025 Neutrophils (Bld) [#/Vol] 4.6 10 3/uL 1.4-6.5 [facility] Neutrophils/100 WBC Auto (Bl d)Ordered By: Analisa Bryant on 05-28-2025 Neutrophils/100 WBC (Bld) 66.4 % 43.0-75.0 [facility] No Panel InformationOrdered By: Analisa Bryant on 05-28-2025 NO [facility] SEEN #/LPF Abnormal NONE SEEN [facility] Seen #/HPF Abnormal None Seen [facility] RARE [facility] TRACE #/HPF Abnormal NONE SEEN [facility] Negative NEGATIVE [facility] SMALL Abnormal NEGATIVE [facility] CLEAR CLEAR [facility] LT. YELLOW YELLOW [facility] 100 mg/dL Abnormal NEGATIVE [facility] NONE SEEN NONE SEEN [facility] 7.0 5.0-9.0 [facility] >=300 mg/dL Abnormal NEG/TRACE [facility] 0-2 #/HPF Abnormal NONE SEEN [facility] 1.020 1.005-1.025 [facility] RARE #/LPF NONE/RARE [facility] 0.2 EU/dL 0.2-1.0 [facility] 6395.0 pg/mL Critically high <=1800.0 [facility] 18.7 pg/mL 4.0-51.3 [facility] 32.4 [facility] 48.0 mg/dL High 7.0-18.0 [facility] 0.2 10 3/uL 0.0-0.7 [facility] 8.5 mg/dL 8.5-10.1 [facility] 107 mmol/L 98-107 [facility] 29.3 mmol/L 21.0-32.0 [facility] 1.48 mg/dL High 0.55-1.02 [facility] 0.01 10 3/uL 0.00-0.03 [facility] 41 Low >=60 mL/min/1.73 m 2 [facility] 0.1 % 0.0-0.5 [facility] 64 mg/dL Low 74-106 [facility] 4.1 mmol/L 3.5-5.1 [facility] 143 mmol/L 136-145 [facility] Platelet mean volume Auto (B ld) [Entitic vol]Ordered By: Analisa Bryant on 05-28-2025 Platelet mean volume (Bld) [Entitic vol] 10.0 fL 9.5-13.5 [facility] Platelets Auto (Bld) [#/Vol] Ordered By: Analisa Bryant on 05-28-2025 Platelets (Bld) [#/Vol] 236 10 3/uL 150-450 [facility] RBC Auto (Bld) [#/Vol]Ordere d By: Analisa Bryant on 05-28-2025 RBC (Bld) [#/Vol] 3.77 10 6/uL Low 4.20-5.40 [facility] Serum or plasma anion gap de terminationOrdered By: Analisa Bryant on 05-28-2025 Anion gap [Moles/Vol] 10.8 mmol/L [facility] Basophils Auto (Bld) [#/Vol] Ordered By: Cheng Aviles on 05-11-2025 Basophils (Bld) [#/Vol] 0.1 10 3/uL 0.0-0.1 [facility] Basophils/100 WBC Auto (Bld) Ordered By: Cheng Aviles on 05-11-2025 Basophils/100 WBC (Bld) 1.2 % 0.2-2.0 [facility] Eosinophils/100 WBC Auto (Bl d)Ordered By: Cheng Aviles on 05-11-2025 Eosinophils/100 WBC (Bld) 2.7 % 0.9-7.0 [facility] Erythrocyte distribution wid th Auto (RBC) [Ratio]Ordered By: Cheng Aviles on 05-11-2025 Erythrocyte distribution width (RBC) [Ratio] 15.7 % High 11.0-15.0 [facility] Estimated glomerular filtrat ion rate (GFR) non- AmericanOrdered By: Rica Kaplan on 05-11-2025 GFR/1.73 sq M.predicted among non-blacks MDRD (S/P/Bld) [Vol rate/Area] 36 mL/min/{1.73_m2} Low >=60 mL/min/1.73 m 2 [facility] Hematocrit Auto (Bld) [Volum e fraction]Ordered By: Cheng Aviles on 05-11-2025 Hematocrit (Bld) [Volume fraction] 34.2 % Low 36.0-48.0 [facility] Hemoglobin [Mass/volume] in BloodOrdered By: Cheng Aviles on 05-11-2025 Hemoglobin (Bld) [Mass/Vol] 10.9 g/dL Low 12.0-16.0 [facility] Laboratory - Chemistry and C hemistry - challengeOrdered By: Rica Kaplan on 05-11-2025 Calcium [Mass/Vol] 8.6 mg/dL 8.5-10.1 [facility] Chloride [Moles/Vol] 107 mmol/L 98-107 [facility] CO2 [Moles/Vol] 27.7 mmol/L 21.0-32.0 [facility] Creatinine [Mass/Vol] 1.40 mg/dL High 0.55-1.02 [facility] GFR/1.73 sq M.predicted MDRD (S/P/Bld) [Vol rate/Area] 44 mL/min/{1.73_m2} Low >=60 mL/min/1.73 m 2 [facility] Glucose [Mass/Vol] 93 mg/dL 74-106 [facility] Potassium [Moles/Vol] 4.2 mmol/L 3.5-5.1 [facility] Sodium [Moles/Vol] 144 mmol/L 136-145 [facility] Urea nitrogen [Mass/Vol] 34.0 mg/dL High 7.0-18.0 [facility] Urea nitrogen/Creatinine [Mass ratio] 24.3 mg/mg [facility] Laboratory - Hematology and Cell countsOrdered By: Cheng Aviles on 05-11-2025 Immature granulocytes/100 WBC (Bld) 0.4 % 0.0-0.5 [facility] Leukocytes [#/volume] correc gali for nucleated erythrocytes in Blood by Automated counOrdered By: Cheng Aviles on 05-11-2025 WBC corrected for nucl RBC Auto (Bld) [#/Vol] 8.5 10 3/uL 4.0-11.0 [facility] Lymphocytes Auto (Bld) [#/Vo l]Ordered By: Cheng Aviles on 05-11-2025 Lymphocytes (Bld) [#/Vol] 1.4 10 3/uL 1.2-3.8 [facility] Lymphocytes/100 WBC Auto (Bl d)Ordered By: Cheng Aviles on 05-11-2025 Lymphocytes/100 WBC (Bld) 16.0 % Low 20.5-60.0 [facility] MCH Auto (RBC) [Entitic mass ]Ordered By: Cheng Aviles on 05-11-2025 MCH (RBC) [Entitic mass] 28.5 pg 26.7-34.0 [facility] MCHC Auto (RBC) [Mass/Vol]Or dered By: Cheng Aviles on 05-11-2025 MCHC (RBC) [Mass/Vol] 31.9 g/dL 29.9-35.2 [facility] MCV Auto (RBC) [Entitic vol] Ordered By: Cheng Aviles on 05-11-2025 MCV (RBC) [Entitic vol] 89.5 fL 81.0-99.0 [facility] Monocytes Auto (Bld) [#/Vol] Ordered By: Cheng Aviles on 05-11-2025 Monocytes (Bld) [#/Vol] 0.6 10 3/uL 0.3-0.8 [facility] Monocytes/100 WBC Auto (Bld) Ordered By: Cheng Aviles on 05-11-2025 Monocytes/100 WBC (Bld) 7.5 % 1.7-12.0 [facility] Neutrophils Auto (Bld) [#/Vo l]Ordered By: Cheng Aviles on 05-11-2025 Neutrophils (Bld) [#/Vol] 6.1 10 3/uL 1.4-6.5 [facility] Neutrophils/100 WBC Auto (Bl d)Ordered By: Cheng Aviles on 05-11-2025 Neutrophils/100 WBC (Bld) 72.2 % 43.0-75.0 [facility] No Panel InformationOrdered By: Cheng Aviles on 05-11-2025 Eosinophils # (Auto) 0.2 10 3/uL 0.0-0.7 [facility] Immature Granulocyte # (Auto) 0.03 10 3/uL 0.00-0.03 [facility] 0.2 10 3/uL 0.0-0.7 [facility] 0.03 10 3/uL 0.00-0.03 [facility] 0.4 % 0.0-0.5 [facility] No Panel InformationOrdered By: Rica Kaplan on 05-11-2025 24.3 [facility] 34.0 mg/dL High 7.0-18.0 [facility] 8.6 mg/dL 8.5-10.1 [facility] 107 mmol/L 98-107 [facility] 27.7 mmol/L 21.0-32.0 [facility] 1.40 mg/dL High 0.55-1.02 [facility] 44 Low >=60 mL/min/1.73 m 2 [facility] 93 mg/dL 74-106 [facility] 4.2 mmol/L 3.5-5.1 [facility] 144 mmol/L 136-145 [facility] Platelet mean volume Auto (B ld) [Entitic vol]Ordered By: Cheng Aviles on 05-11-2025 Platelet mean volume (Bld) [Entitic vol] 10.0 fL 9.5-13.5 [facility] Platelets Auto (Bld) [#/Vol] Ordered By: Cheng Aviles on 05-11-2025 Platelets (Bld) [#/Vol] 279 10 3/uL 150-450 [facility] RBC Auto (Bld) [#/Vol]Ordere d By: Cheng Aviles on 05-11-2025 RBC (Bld) [#/Vol] 3.82 10 6/uL Low 4.20-5.40 [facility] Serum or plasma anion gap de terminationOrdered By: Rica Kaplan on 05-11-2025 Anion gap [Moles/Vol] 13.5 mmol/L [facility] Telephoneon 05-07-2025 Telephone [id number] Joe Call 1945 F Date Provider Department Center 05/07/2025 TerrellJaved[facility]ell[facility]ANDAD[facility] Family History Problem Relation Age of Onset Heart disease Mother Heart attack Father Coronary artery disease Other Diabetes Other Polycystic kidney disease Other Family Status - Relation Status Age at Mother Father Sister Brother Other Normal [facility] Office Visiton 04-22-2025 Follow-up visit [id number] Joe Call 1945 F Date Provider Department Center 04/22/2025 RICA DEAN CARD [facility] Family History Problem Relation Age of Onset Heart disease Mother Heart attack Father Coronary artery disease Other Diabetes Other Polycystic kidney disease Other Family Status - Relation Status Age at Mother Father Sister Brother Other Level of Service:59734 [place] OFFICE/OUTPATIENT ESTABLISHED HIGH MDM 40 MIN Normal [facility] Alanine aminotransferase [En zymatic activity/volume] in Serum or PlasmaOrdered By: Jorge Calix on 03-12-2025 ALT [Catalytic activity/Vol] Alanine aminotransferase [Enzymatic activity/volume] in Serum or Plasma 7-52 [facility] ALT [Catalytic activity/Vol] 9 U/L Normal 52 [facility] Comment on above: Performed By: #### M , BMP #### [address] Albumin [Mass/volume] in Ser um or Plasma by Bromocresol green (BCG) dye binding methoOrdered By: Jorge Calix on 03-12-2025 Albumin BCG dye [Mass/Vol] Albumin [Mass/volume] in Serum or Plasma by Bromocresol green (BCG) dye binding metho Low 3.5-5.7 [facility] Albumin BCG dye [Mass/Vol] 3.0 g/dL Low 3.5-5.7 [facility] Alkaline phosphatase [Enzyma tic activity/volume] in Serum or PlasmaOrdered By: Jorge Calix on 03-12-2025 ALP [Catalytic activity/Vol] Alkaline phosphatase [Enzymatic activity/volume] in Serum or Plasma 34-104 [facility] ALP [Catalytic activity/Vol] 104 U/L Normal 34-104 [facility] Comment on above: Performed By: #### M G, BMP #### [facility] [address] Appearance of UrineOrdered B y: Jorge Calix on 03-12-2025 Appearance (U) Urine appearance Clear [facility] Appearance (U) Clear Normal Clear [facility] Comment on above: Order Comment: Name Collection Type:: Other Performed By: #### G MICK #### Point of Care testing , Aspartate aminotransferase [ Enzymatic activity/volume] in Serum or PlasmaOrdered By: Jorge Calix on 03-12-2025 AST [Catalytic activity/Vol] Aspartate aminotransferase [Enzymatic activity/volume] in Serum or Plasma Low 13-39 [facility] AST [Catalytic activity/Vol] 11 U/L Low -39 [facility] Comment on above: Performed By: #### M Bela, BMP #### [facility] [address] BNP ser/plasOrdered By: Steven Calix on 03-12-2025 Natriuretic peptide B (Bld) [Mass/Vol] 773.0 pg/mL High 5-100 [facility] Comment on above: Result Comment: PERF ORMED BY: [place] [address] PATHOLOGIST PAPER MACHINE OPERATOR MYA HYDE M.D. Performed By: #### M Bela, BMP #### [facility] [address] Bacteria [Presence] in Urine by AutomatedOrdered By: Joreg Calix on 03-12-2025 Bacteria Auto Ql (U) Bacteria [Presence] in Urine by Automated High None Seen [facility] Bacteria Auto Ql (U) 2+ [HPF] High None Seen [facility] Basic Metabolic Panelon Creatinine Clr Calc Pharmacy 35.31 Normal [facility] Comment on above: Performed By: #### M G, BMP #### [facility] [address] Estimated GFR 31.389 mL/Min Normal [facility] Comment on above: Performed By: #### M G, BMP #### [facility] [address] [place] [address] [place] Basophils Auto (Bld) [#/Vol] Ordered By: Jorge Calix on 03-12-2025 Basophils (Bld) [#/Vol] Automated basophil count 0.0-0.2 [facility] Basophils [#/volume] in Bloo d by Automated countOrdered By: Jorge Calix on 03-12-2025 Basophils (Bld) [#/Vol] 0.1 10*3/uL Normal 0.0-0.2 [facility] Comment on above: Result Comment: PERF ORMED BY: [place] [address] PATHOLOGIST PAPER MACHINE OPERATOR MAY HYDE M.D. Performed By: #### Vandana Cramer, BMP #### [address] Basophils/100 WBC Auto (Bld) Ordered By: Jorge Calix on 03-12-2025 Basophils/100 WBC (Bld) Automated basophil % . [facility] Basophils/100 leukocytes in Blood by Automated countOrdered By: Jorge Calix on 03-12-2025 Basophils/100 WBC (Bld) 0.8 % Normal . [facility] Comment on above: Performed By: #### Vandana Cramer, BMP #### [address] Bilirubin Test strip Ql (U)O rdered By: Jorge Calix on 03-12-2025 Bilirubin Ql (U) Bilirubin.total [Presence] in Urine by Test strip Negative [facility] Bilirubin Ql (U) Negative Negative [facility] Bilirubin.direct [Mass/volum e] in Serum or PlasmaOrdered By: Jorge Calix on 03-12-2025 Bilirubin.direct [Mass/Vol] Bilirubin.direct [Mass/volume] in Serum or Plasma 0.03-0.18 [facility] Bilirubin.direct [Mass/Vol] 0.10 mg/dL 0.03-0.18 [facility] Bilirubin.total [Mass/volume ] in Serum or PlasmaOrdered By: Jorge Calix on 03-12-2025 Bilirubin [Mass/Vol] Bilirubin.total [Mass/volume] in Serum or Plasma 0.3-1.0 [facility] Bilirubin [Mass/Vol] 0.5 mg/dL Normal 0.3-1.0 [facility] Comment on above: Performed By: #### M Bela, BMP #### [facility] [address] Calcium [Mass/volume] in Ser um or PlasmaOrdered By: Jorge Calix on 03-12-2025 Calcium [Mass/Vol] Calcium [Mass/volume ] in Serum or Plasma Low 8.6-10.3 [facility] Calcium [Mass/Vol] 8.3 mg/dL Low 8.6-10.3 [facility] Comment on above: Performed By: #### M Beal, BMP #### [facility] [address] Capillary blood glucose wander urement by glucometer (mass/volume)Ordered By: Jorge Calix on 03-12-2025 Glucose [Mass/Vol] 364 mg/dL Normal [facility] Comment on above: Random Glucose Refer ence Range is dependent on time and content of last meal. Glucose of more than 200 mg/dL in a nonstressed, ambulatory subject supports the diagnosis of Diabetes Mellitus. Result Comment: [facility] Glucose Reference Range is dependent on time and content of last meal. Glucose of more than 200 mg/dL in a nonstressed, ambulatory subject supports the diagnosis of Diabetes Mellitus. PERFORMED BY: [place] [address] PATHOLOGIST PAPER MACHINE OPERATOR MAY HYDE M.D. Performed By: #### A 1C [facility] #### [facility] [address] [place] [address] [place] Carbon dioxide, total [Moles /volume] in Serum or PlasmaOrdered By: Jorge Calix on 03-12-2025 CO2 [Moles/Vol] Carbon dioxide, tota l [Moles/volume] in Serum or Plasma High 21.0-31.0 [facility] CO2 [Moles/Vol] 37.0 mmol/L High 21.0-31.0 [facility] Comment on above: Performed By: #### Vandana Cramer, BMP #### [place] [address] [place] Chloride [Moles/volume] in S oziel or PlasmaOrdered By: Jorge Calix on 03-12-2025 Chloride [Moles/Vol] Chloride [Moles/vol ume] in Serum or Plasma Low 98-107 [facility] Chloride [Moles/Vol] 89 mmol/L Low 98-107 [facility] Comment on above: Performed By: #### Vandana Cramer, BMP #### [place] [address] [place] Color Auto (U)Ordered By: Amilcar Calix on 03-12-2025 Color (U) Color of Urine by Auto Yellow [facility] Color of Urine by AutoOrdere d By: Jorge Calix on 03-12-2025 Color (U) Light-yellow Normal Yellow [facility] Comment on above: Order Comment: Name Collection Type:: Other Performed By: #### G LULS #### Point of Care testing , Complete Blood Count Auto Di ffon 03-12-2025 Mean Corpuscular HGB Conc 33.3 g/dL Normal 32.0-35.0 [facility] Comment on above: Performed By: #### Vandana Cramer, BMP #### [place] [address] [place] Monocytes/100 WBC (Bld) 18.66 % Normal 0.00-20.00 [facility] Comment on above: Performed By: #### Vandana Cramer, BMP #### [facility] [address] [place] [address] [place] NRBC% 0.1 /100{WBC} Normal 0-0.5 [facility] Comment on above: Performed By: #### Vandana Cramer, BMP #### [place] [address] [place] Creatine kinase [Enzymatic a ctivity/volume] in Serum or PlasmaOrdered By: Jorge Calix on 03-12-2025 CK [Catalytic activity/Vol] Creatine kinase [Enzymatic activity/volume] in Serum or Plasma [facility] CK [Catalytic activity/Vol] 57 U/L Normal [facility] Comment on above: Performed By: #### M Bela, BMP #### [facility] [address] Creatinine [Mass/volume] in Serum or PlasmaOrdered By: Jorge Calix on 03-12-2025 Creatinine [Mass/Vol] Creatinine [Mass/v olume] in Serum or Plasma High 0.60-1.20 [facility] Creatinine [Mass/Vol] 1.66 mg/dL High 0.60-1.20 [facility] Comment on above: Performed By: #### M G, BMP #### [facility] [address] Dipstick and Microscopicon 0 03-12-2025 Bacteria,Urine 2+ High None Seen [facility] Comment on above: Order Comment: Name Collection Type:: Other Performed By: #### G LULS #### Point of Care testing , Bilirubin,Urine Negative Normal Negative [facility] Comment on above: Order Comment: Name Collection Type:: Other Performed By: #### G LULS #### Point of Care testing , Glucose Ql (U) >= High Normal [facility] Comment on above: Order Comment: Name Collection Type:: Other Performed By: #### G LULS #### Point of Care testing , Hyaline Casts,Urine 0-8 Normal 0-8 [facility] Comment on above: Order Comment: Name Collection Type:: Other Result Comment: PERF ORMED BY: [facility] [address] [facility] [place] [address] PATHOLOGIST PAPER MACHINE OPERATOR MAY HYDE M.D. Performed By: #### G LULS #### Point of Care testing , Nitrite,Urine Negative Normal Negative [facility] Comment on above: Order Comment: Name Collection Type:: Other Performed By: #### G LULS #### Point of Care testing , Occult Blood,Urine Negative Normal Negative [facility] Comment on above: Order Comment: Name Collection Type:: Other Result Comment: PERF ORMED BY: [place] [address] PATHOLOGIST PAPER MACHINE OPERATOR MAY HYDE M.D. Performed By: #### G LULS #### Point of Care testing , RBC,Urine 1-2 Normal 0-4 [facility] Comment on above: Order Comment: Name Collection Type:: Other Performed By: #### G LULS #### Point of Care testing , Specificy [place],Urine 1.012 Normal 1.001-1.030 [facility] Comment on above: Order Comment: Name Collection Type:: Other Performed By: #### G LULS #### Point of Care testing , Squamous Epithelial Cell,Urine 1-2 Normal 0-2 [facility] Comment on above: Order Comment: Name Collection Type:: Other Performed By: #### G LULS #### Point of Care testing , Urobilinogen,Urine Normal Normal Normal [facility] Comment on above: Order Comment: Name Collection Type:: Other Performed By: #### G LULS #### Point of Care testing , WBC,Urine 3-4 Normal 0-4 [facility] Comment on above: Order Comment: Name Collection Type:: Other Performed By: #### G LULS #### Point of Care testing , ECG 12 lead ECGon 03-12-2025 ECG 12 lead ECG [facility] [place] [id number] Electrocardiograph Report Signed Patient: Joe Call MR#: [id number] 0 : 1945 Acct:[id number] Age/Sex: 79 / F ADM Date: 03/12/25 Loc: ER Room: Type: [facility] ER Attending Dr: Ordering Provider: Jorge [...] 30 bpm Confirmed by Jorge Calix DO ([id number]) on 03/12/2025 6:57:40 PM Referred By: Electronically Signed By: Jorge Calix DO Transcribed By: MUS Signed By Jorge Calix DO 5 1857 Normal [facility] Eosinophils Auto (Bld) [#/Vo l]Ordered By: Jorge Calix on 03-12-2025 Eosinophils (Bld) [#/Vol] Automated eosinophil count 0.0-0.45 [facility] Eosinophils [#/volume] in Bl ood by Automated countOrdered By: Jorge Calix on 03-12-2025 Eosinophils (Bld) [#/Vol] 0.1 10*3/uL Normal 0.0-0.45 [facility] Comment on above: Performed By: #### Vandana Cramer, BMP #### [facility] [address] Eosinophils/100 WBC Auto (Bl d)Ordered By: Jorge Calix on 03-12-2025 Eosinophils/100 WBC (Bld) Automated eosinophil % . [facility] Eosinophils/100 leukocytes i n Blood by Automated countOrdered By: Jorge Calix on 03-12-2025 Eosinophils/100 WBC (Bld) 1.0 % Normal . [facility] Comment on above: Performed By: #### Vandana Cramer, BMP #### [facility] [address] Epithelial cells.squamous [# /area] in Urine sediment by Automated countOrdered By: Jorge Calix on 03-12-2025 Epithelial cells.squamous Auto (Urine sed) [#/Area] Epithelial cells.squamous [#/area] in Urine sediment by Automated count 0-2 [facility] Epithelial cells.squamous Auto (Urine sed) [#/Area] 1-2 [HPF] 0-2 [facility] Erythrocyte distribution wid th Auto (RBC) [Ratio]Ordered By: Jorge Calix on 03-12-2025 Erythrocyte distribution width (RBC) [Ratio] Erythrocyte distribution width [Ratio] by Automated count 11.9-15.3 [facility] Erythrocyte distribution wid th [Ratio] by Automated countOrdered By: Jorge Calix on 03-12-2025 Erythrocyte distribution width (RBC) [Ratio] 14.5 % Normal 11.9-15.3 [facility] Comment on above: Performed By: #### Vandana Cramer, KAREN #### [facility] [address] Erythrocytes [#/area] in Uri ne sediment by Automated countOrdered By: Jorge Calix on 03-12-2025 RBC Auto (Urine sed) [#/Area] Erythrocytes [#/area] in Urine sediment by Automated count 0-4 [facility] RBC Auto (Urine sed) [#/Area] 1-2 [HPF] 0-4 [facility] Erythrocytes [#/volume] in B lood by Automated countOrdered By: Jorge Calix on 03-12-2025 RBC (Bld) [#/Vol] 4.33 10*6/uL Normal 3.60-5.00 [facility] Comment on above: Performed By: #### Vandana Cramer, KAREN #### [facility] [address] [place] [address] Globulin Calc (S) [Mass/Vol] Ordered By: Jorge Calix on 03-12-2025 Globulin (S) [Mass/Vol] Serum globulin measurement by calculation (mass/volume) [facility] Glucose Glucometer (BldC) [M ass/Vol]Ordered By: Jorge Calix on 03-12-2025 Glucose [Mass/Vol] Capillary blood gluc ose measurement by glucometer (mass/volume) [facility] Glucose [Mass/volume] in Ser um or PlasmaOrdered By: Jorge Calix on 03-12-2025 Glucose [Mass/Vol] Glucose [Mass/volume ] in Serum or Plasma Critically high 70-100 [facility] Glucose [Mass/Vol] 520 mg/dL Off scale high 70-100 [facility] Comment on above: Critical Result Call ed to and read back by: MIRELA NINO at: 03/12/2025 16:29:08 by:[email or web address] recommended reference rangeRandom Glucose Reference Range is dependent on time and content of last meal. Glucose of more than 200 mg/dL in a nonstressed, ambulatory subject supports the diagnosis of Diabetes Mellitus. Result Comment: Crit ical Result Called to and read back by: MIRELA NINO at: 03/12/2025 16:29:08 by:LFM Random Glucose Reference Range is dependent on time and content of last meal. Glucose of more than 200 mg/dL in a nonstressed, ambulatory subject supports the diagnosis of Diabetes Mellitus. ADA recommended reference range Performed By: #### Vandana Cramer, BMP #### [facility] [address] [place] [address] Glucose [Mass/volume] in Uri ne by Test stripOrdered By: Jorge Calix on 03-12-2025 Glucose Test strip (U) [Mass/Vol] Glucose [Mass/volume] in Urine by Test strip High Normal [facility] Glucose Test strip (U) [Mass/Vol] >=1000 mg/dL High Normal [facility] Hematocrit Auto (Bld) [Volum e fraction]Ordered By: Jorge Calix on 03-12-2025 Hematocrit (Bld) [Volume fraction] Hematocrit [Volume Fraction] of Blood by Automated count 34.0-46.4 [facility] Hematocrit [Volume Fraction] of Blood by Automated countOrdered By: Jorge Calix on 03-12-2025 Hematocrit (Bld) [Volume fraction] 38.3 % Normal 34.0-46.4 [facility] Comment on above: Performed By: #### Vandana Cramer, BMP #### [facility] [address] [place] [address] Hemoglobin Test strip Ql (U) Ordered By: Jorge Calix on 03-12-2025 Hemoglobin Ql (U) Hemoglobin [Presence ] in Urine by Test strip Negative [facility] Hemoglobin Ql (U) Negative Negative [facility] Hemoglobin [Mass/volume] in BloodOrdered By: Jorge Calix on 03-12-2025 Hemoglobin (Bld) [Mass/Vol] Hemoglobin [Mass/volume] in Blood 11.8-15.4 [facility] Hemoglobin (Bld) [Mass/Vol] 12.8 g/dL Normal 11.8-15.4 [facility] Comment on above: Performed By: #### Vandana Cramer, BMP #### [facility] [address] Hepatic Panelon 03-12-2025 Albumin [Mass/Vol] 3.0 g/dL Low 3.5-5.7 [facility] Comment on above: Performed By: #### Vandana Cramer, BMP #### [facility] [address] Bilirubin,Indirect 0.4 mg/dL Normal [facility] Comment on above: Performed By: #### Vandana Cramer, BMP #### [facility] [address] Bilirubin.indirect [Mass/Vol] 0.10 mg/dL Normal 0.03-0.18 [facility] Comment on above: Performed By: #### Vandana Cramer, BMP #### [facility] [address] Hyaline casts [#/area] in Ur ine sediment by Automated countOrdered By: Jorge Calix on 03-12-2025 Hyaline casts Auto (Urine sed) [#/Area] Hyaline casts [#/area] in Urine sediment by Automated count 0-8 [facility] Hyaline casts Auto (Urine sed) [#/Area] 0-8 [LPF] 0-8 [facility] INR in Platelet poor plasma by Coagulation assayOrdered By: Jorge Calix on 03-12-2025 INR Coag (PPP) [Relative time] INR in Platelet poor plasma by Coagulation assay [facility] INR Coag (PPP) [Relative time] 1.7 {INR} Normal [facility] Comment on above: INR Therapeutic Rang e A) Pre- and Peroperative OAT started two weeks before surgery. NOT HIP SURGERY: 1.5 - 2.5 HIP SURGERY: 2 - 3B) Primary and secondary prevention of venous THROMBOSIS: 2 - 3C) Active venous thrombosis, pulmonary embolismand prevention of recurrent venous thrombosis: 2 - 3D) Prevention of arterial thromboembolismincluding patients with mechanical heart valves: 3 - 4.5 Result Comment: INR Therapeutic Range A) Pre- [...] heart valves: 3 - 4.5 PERFORMED BY: [place] [address] PATHOLOGIST PAPER MACHINE OPERATOR MAY HYDE M.D. Performed By: #### M G, BMP #### [address] Ketones Test strip Ql (U)Ord ered By: Jorge Calix on 03-12-2025 Ketones Ql (U) Ketones [Presence] i n Urine by Test strip Negative [facility] Ketones [Presence] in Urine by Test stripOrdered By: Jorge Calix on 03-12-2025 Ketones Ql (U) Negative Normal Negative [facility] Comment on above: Order Comment: Name Collection Type:: Other Performed By: #### G LULS #### Point of Care testing , Leukocyte esterase [Presence ] in Urine by Test stripOrdered By: Jorge Calix on 03-12-2025 Leukocyte esterase Test strip Ql (U) Leukocyte esterase [Presence] in Urine by Test strip Negative [facility] Leukocyte esterase Test strip Ql (U) Negative Normal Negative [facility] Comment on above: Order Comment: Name Collection Type:: Other Performed By: #### G LULS #### Point of Care testing , Leukocytes [#/area] in Urine sediment by Automated countOrdered By: Jorge Calix on 03-12-2025 WBC Auto (Urine sed) [#/Area] Leukocytes [#/area] in Urine sediment by Automated count 0-4 [facility] WBC Auto (Urine sed) [#/Area] 3-4 [HPF] 0-4 [facility] Leukocytes [#/volume] correc gali for nucleated erythrocytes in Blood by Automated counOrdered By: Jorge Calix on 03-12-2025 WBC corrected for nucl RBC Auto (Bld) [#/Vol] Leukocytes [#/volume] corrected for nucleated erythrocytes in Blood by Automated coun 3.8-11.6 [facility] WBC corrected for nucl RBC Auto (Bld) [#/Vol] 9.0 10*3/uL 3.8-11.6 [facility] Leukocytes [#/volume] in Blo od by Automated countOrdered By: Jorge Calix on 03-12-2025 WBC (Bld) [#/Vol] 9.0 10*3/uL Normal 3.8-11.6 [facility] Comment on above: Performed By: #### Vandana Cramer, BMP #### [facility] [address] [place] [address] Lymphocytes Auto (Bld) [#/Vo l]Ordered By: Jorge Calix on 03-12-2025 Lymphocytes (Bld) [#/Vol] Lymphocytes [#/volume] in Blood by Automated count 1.00-4.8 [facility] Lymphocytes [#/volume] in Bl ood by Automated countOrdered By: Jorge Calix on 03-12-2025 Lymphocytes (Bld) [#/Vol] 1.3 10*3/uL Normal 1.00-4.8 [facility] Comment on above: Performed By: #### Vandana Cramer, BMP #### [facility] [address] [place] [address] Lymphocytes/100 WBC Auto (Bl d)Ordered By: Jorge Calix on 03-12-2025 Lymphocytes/100 WBC (Bld) Lymphocytes/100 leukocytes in Blood by Automated count . [facility] Lymphocytes/100 leukocytes i n Blood by Automated countOrdered By: Jorge Calix on 03-12-2025 Lymphocytes/100 WBC (Bld) 14.2 % Normal . [facility] Comment on above: Performed By: #### Vandana Cramer, BMP #### [facility] [address] [place] [address] MCH Auto (RBC) [Entitic mass ]Ordered By: Jorge Calix on 03-12-2025 MCH (RBC) [Entitic mass] MCH [Entitic mass] by Automated count 24.7-34.3 [facility] MCH [Entitic mass] by Automa gali countOrdered By: Jorge Calix on 03-12-2025 MCH (RBC) [Entitic mass] 29.5 pg Normal 24.7-34.3 [facility] Comment on above: Performed By: #### Vandana Cramer, BMP #### [facility] [address] MCHC Auto (RBC) [Mass/Vol]Or dered By: Jorge Claix on 03-12-2025 MCHC (RBC) [Mass/Vol] MCHC [Mass/volume] by Automated count 32.0-35.0 [facility] MCHC (RBC) [Mass/Vol] 33.3 g/dL 32.0-35.0 [facility] MCV Auto (RBC) [Entitic vol] Ordered By: Jorge Calix on 03-12-2025 MCV (RBC) [Entitic vol] MCV [Entitic volume] by Automated count 80-100 [facility] MCV [Entitic volume] by Auto mated countOrdered By: Jorge Calix on 03-12-2025 MCV (RBC) [Entitic vol] 88.4 fL Normal 80-100 [facility] Comment on above: Performed By: #### Vandana Cramer, BMP #### [address] Magnesium [Mass/volume] in S oziel or PlasmaOrdered By: Jorge Calix on 03-12-2025 Magnesium [Mass/Vol] Magnesium [Mass/vol ume] in Serum or Plasma Low 1.9-2.7 [facility] Magnesium [Mass/Vol] 1.1 mg/dL Low 1.9-2.7 [facility] Comment on above: Result Comment: PERF ORMED BY: [address] [place] [place] [address] PATHOLOGIST PAPER MACHINE OPERATOR MAY HYDE M.D. Performed By: #### Vandana Cramer, BMP #### [facility] [address] [place] [address] [place] Monocyte distribution width [Entitic volume] in Blood by AutomatedOrdered By: Jorge Calix on 03-12-2025 Monocyte distribution width Auto (Bld) [Entitic vol] Monocyte distribution width [Entitic volume] in Blood by Automated 0.00-20.00 [facility] Monocyte distribution width Auto (Bld) [Entitic vol] 18.66 % 0.00-20.00 [facility] Monocytes Auto (Bld) [#/Vol] Ordered By: Jorge Calix on 03-12-2025 Monocytes (Bld) [#/Vol] Automated blood monocyte count 0.0-0.8 [facility] Monocytes [#/volume] in Bloo d by Automated countOrdered By: Jorge Calix on 03-12-2025 Monocytes (Bld) [#/Vol] 0.5 10*3/uL Normal 0.0-0.8 [facility] Comment on above: Performed By: #### Vandana Cramer, BMP #### [facility] [address] [place] [address] Monocytes/100 WBC Auto (Bld) Ordered By: Jorge Calix on 03-12-2025 Monocytes/100 WBC (Bld) Automated monocyte % . [facility] Monocytes/100 leukocytes in Blood by Automated countOrdered By: Jorge Calix on 03-12-2025 Monocytes/100 WBC (Bld) 5.9 % Normal . [facility] Comment on above: Performed By: #### M G, BMP #### [facility] [address] [place] [address] Natriuretic peptide B [Mass/ Vol]Ordered By: Jorge Calix on 03-12-2025 Natriuretic peptide B (Bld) [Mass/Vol] BNP ser/plas High 5-100 [facility] Neutrophils Auto (Bld) [#/Vo l]Ordered By: Jorge Calix on 03-12-2025 Neutrophils (Bld) [#/Vol] Neutrophils [#/volume] in Blood by Automated count 1.8-7.7 [facility] Neutrophils [#/volume] in Bl ood by Automated countOrdered By: Jorge Calix on 03-12-2025 Neutrophils (Bld) [#/Vol] 7.0 10*3/uL Normal 1.8-7.7 [facility] Comment on above: Performed By: #### M G, BMP #### [facility] [address] [id number] [place] Neutrophils/100 WBC Auto (Bl d)Ordered By: Jorge Calix on 03-12-2025 Neutrophils/100 WBC (Bld) Automated neutrophil % . [facility] Neutrophils/100 leukocytes i n Blood by Automated countOrdered By: Jorge Calix on 03-12-2025 Neutrophils/100 WBC (Bld) 78.1 % Normal . [facility] Comment on above: Performed By: #### M G, BMP #### [facility] [address] [id number] [facility] Nitrite Test strip Ql (U)Ord ered By: Jorge Calix on 03-12-2025 Nitrite Ql (U) Nitrite [Presence] i n Urine by Test strip Negative [facility] Nitrite Ql (U) Negative Negative [facility] No Panel InformationOrdered By: Jorge Calix on 03-12-2025 Estimated GFR (CKD-EPI) 31.389 mL/Min [facility] Creatinine Clearance (Chem 35.31 [facility] 31.389 mL/Min [facility] 35.31 [facility] Nucleated erythrocytes [Pres ence] in Blood by Automated countOrdered By: Jorge Calix on 03-12-2025 Nucleated RBC Auto Ql (Bld) Nucleated erythrocytes [Presence] in Blood by Automated count 0-0.5 [facility] Nucleated RBC Auto Ql (Bld) 0.1 /100{WBC} 0-0.5 [facility] Platelet mean volume Auto (B ld) [Entitic vol]Ordered By: Jorge Calix on 03-12-2025 Platelet mean volume (Bld) [Entitic vol] Platelet mean volume [Entitic volume] in Blood by Automated count 6.3-10.7 [facility] Platelet mean volume [Entiti c volume] in Blood by Automated countOrdered By: Jorge Calix on 03-12-2025 Platelet mean volume (Bld) [Entitic vol] 9.6 fL Normal 6.3-10.7 [facility] Comment on above: Performed By: #### Vandana Cramer, BMP #### [facility] [address] Platelets Auto (Bld) [#/Vol] Ordered By: Jorge Calix on 03-12-2025 Platelets (Bld) [#/Vol] Platelets [#/volume] in Blood by Automated count 150-450 [facility] Platelets [#/volume] in Bloo d by Automated countOrdered By: Jorge Calix on 03-12-2025 Platelets (Bld) [#/Vol] 194 10*3/uL Normal 150-450 [facility] Comment on above: Performed By: #### Vandana Cramer, BMP #### [place] [address] [place] Potassium [Moles/volume] in Serum or PlasmaOrdered By: Jorge Calix on 03-12-2025 Potassium [Moles/Vol] Potassium [Moles/v olume] in Serum or Plasma 3.5-5.1 [facility] Potassium [Moles/Vol] 4.0 mmol/L Normal 3.5-5.1 [facility] Comment on above: Performed By: #### Vandana Cramer, BMP #### [address] Protein Test strip (U) [Mass /Vol]Ordered By: Jorge Calix on 03-12-2025 Protein (U) [Mass/Vol] Protein [Mass/vol ume] in Urine by Test strip High Negative [facility] Protein [Mass/volume] in Ser um or PlasmaOrdered By: Jorge Calix on 03-12-2025 Protein [Mass/Vol] Protein [Mass/volume ] in Serum or Plasma 6.4-8.9 [facility] Protein [Mass/Vol] 7.0 g/dL Normal 6.4-8.9 [facility] Comment on above: Performed By: #### Vandana Cramer, BMP #### [address] Protein [Mass/volume] in Uri ne by Test stripOrdered By: Jorge Calix on 03-12-2025 Protein (U) [Mass/Vol] 200 mg/dL High Negative [facility] Comment on above: Order Comment: Name Collection Type:: Other Performed By: #### G MICK #### Point of Care testing , Prothrombin time (PT)Ordered By: Jorge Calix on 03-12-2025 PT Coag (PPP) [Time] Prothrombin time (PT) High 9.0- 12.9 [facility] PT Coag (PPP) [Time] 19.3 s High 9.0-12.9 [facility] Comment on above: A hematocrit value g reater than 55% may lead to inaccurate results in coagulation testing. Patients having hematocrit values >55% require a special collection tube for coagulation studies. Please contact the laboratory at [phone] for redraw instructions. Result Comment: A he matocrit value greater than 55% may lead to inaccurate results in coagulation testing. Patients having hematocrit values >55% require a special collection tube for coagulation studies. Please contact the laboratory at [phone] for redraw instructions. Performed By: #### M Bela, BMP #### [facility] [address] [place] [address] RBC Auto (Bld) [#/Vol]Ordere d By: Jorge Calix on 03-12-2025 RBC (Bld) [#/Vol] Erythrocytes [#/volu me] in Blood by Automated count 3.60-5.00 [facility] Serum globulin measurement b y calculation (mass/volume)Ordered By: Jorge Calix on 03-12-2025 Globulin (S) [Mass/Vol] 4.0 g/dL Normal [facility] Comment on above: Performed By: #### M Bela, BMP #### [facility] [address] [place] [address] Serum or plasma albumin/glob ulin mass ratioOrdered By: Jorge Calix on 03-12-2025 Albumin/Globulin [Mass ratio] Serum or plasma albumin/globulin mass ratio [facility] Albumin/Globulin [Mass ratio] 0.8 {ratio} Normal [facility] Comment on above: Performed By: #### M Bela, BMP #### [facility] [address] Serum or plasma anion gap de terminationOrdered By: Jorge Calix on 03-12-2025 Anion gap [Moles/Vol] Serum or plasma an ion gap determination 6.0-15.0 [facility] Anion gap [Moles/Vol] 12.0 mmol/L Normal 6.0-15.0 [facility] Comment on above: Performed By: #### Vandana Cramer, BMP #### [facility] [address] [place] [address] Serum or plasma non-glucuron idated bilirubin measurement (mass/volume)Ordered By: Jorge Calix on 03-12-2025 Bilirubin.indirect [Mass/Vol] Serum or plasma non-glucuronidated bilirubin measurement (mass/volume) [facility] Bilirubin.indirect [Mass/Vol] 0.4 mg/dL [facility] Sodium [Moles/volume] in Ser um or PlasmaOrdered By: Jorge Calix on 03-12-2025 Sodium [Moles/Vol] Sodium [Moles/volume ] in Serum or Plasma Low 136-145 [facility] Sodium [Moles/Vol] 134 mmol/L Low 136-145 [facility] Comment on above: Performed By: #### Vandana Cramer, BMP #### [facility] [address] [place] [address] Specific gravity Test strip (U) [Rel density]Ordered By: Jorge Calix on 03-12-2025 Specific gravity (U) [Rel density] Specific gravity of Urine by Test strip 1.001-1.030 [facility] Specific gravity (U) [Rel density] 1.012 1.001-1.030 [facility] Troponin I High Sensitivityo n 03-12-2025 Troponin I High Sensitivity 46 High 0-15 [facility] Comment on above: Result Comment: The Troponin units of report have been changed to meet the Chest Pain Accreditation requirement, element EC5.M1l2. Troponin units are changed from pg/ml to ng/L. Also, the decimal is removed and results are in whole numbers. PERFORMED BY: [place] [address] PATHOLOGIST PAPER MACHINE OPERATOR MAY HYDE M.D. Performed By: #### Vandana Cramer, BMP #### [address] Troponin I.cardiac [Mass/vol ume] in Serum or Plasma by Detection limit <= 0.01 ng/Ordered By: Jorge Calix on 03-12-2025 Troponin I.cardiac DL <= 0.01 ng/mL [Mass/Vol] Troponin I.cardiac [Mass/volume] in Serum or Plasma by Detection limit <= 0.01 ng/ High [address] [place] [address] Troponin I.cardiac [Mass/vol ume] in Serum or Plasma by Detection limit <= 0.01 ng/mLOrdered By: Jorge Calix on 03-12-2025 Troponin I.cardiac DL <= 0.01 ng/mL [Mass/Vol] 46 ng/L High [address] Comment on above: The Troponin units o f report have been changed to meet the Chest Pain Accreditation requirement, element EC5.M1l2. Troponin units are changed from pg/ml to ng/L. Also, the decimal is removed and results are in whole numbers. Urea nitrogen [Mass/volume] in Serum or PlasmaOrdered By: Jorge Calix on 03-12-2025 Urea nitrogen [Mass/Vol] Urea nitrogen [Mass/volume] in Serum or Plasma [facility] 7-25 [facility] Urea nitrogen [Mass/Vol] 41 mg/dL [address] Comment on above: Performed By: #### Vandana Cramer, BMP #### [address] Urobilinogen Test strip (U) [Mass/Vol]Ordered By: Jorge Calix on 03-12-2025 Urobilinogen (U) [Mass/Vol] Urobilinogen [Mass/volume] in Urine by Test strip Normal [facility] Urobilinogen (U) [Mass/Vol] Normal mg/dL Normal [facility] WBC Auto (Bld) [#/Vol]Ordere d By: Jorge Calix on 03-12-2025 WBC (Bld) [#/Vol] Leukocytes [#/volume ] in Blood by Automated count 3.8-11.6 [facility] X-ray reportOrdered By: Kirit Langston on 03-12-2025 Study report [facility] Work Phone: XR chest 1V portableon 03-12 XR chest 1V portable [facility] [place] [address] [place] [address] XRay Report Signed Patient: Joe Call MR#: [id number] 0 : 1945 Acct:[id number] Age/Sex: 79 / F ADM Date: 03/12/25 Loc: ER Room: Type: [facility] ER Attending Dr: Copies to: Jorge [...] Langston M.D. 03/12/2025 3:34 PM Dictation Location: [place] [address] Transcribed By: [facility] 03/12/25 1534 Dictated By: Vargas Langston MD 03/12/25 1532 Signed By: 03/12/25 1534 Normal [facility] pH Test strip (U)Ordered By: Jorge Calix on 03-12-2025 pH (U) pH of Urine by Test strip 5.0-9.0 [facility] pH of Urine by Test stripOrd ered By: Jorge Calix on 03-12-2025 pH (U) 7.0 [pH] Normal 5.0-9.0 [facility] Comment on above: Order Comment: Name Collection Type:: Other Performed By: #### G LULS #### Point of Care testing , Cholesterol in LDL Calc [Mas s/Vol]on 03-02-2025 Cholesterol in LDL [Mass/Vol] Cholesterol in LDL [Mass/volume] in Serum or Plasma by calculation [facility] Comment on above: <100 mg/dl [id number] 0-129 mg/dl NEAR OR ABOVE [id number] mg/dl BORDERLINE [id number] mg/dl HIGH>190 mg/dl VERY HIGH Cholesterol in LDL [Mass/Vol] 55.6 mg/dL [facility] Comment on above: <100 mg/dl [id number] 0-129 mg/dl NEAR OR ABOVE [id number] mg/dl BORDERLINE [id number] mg/dl HIGH>190 mg/dl VERY HIGH Cholesterol in VLDL Calc [Ma ss/Vol]on 03-02-2025 Cholesterol in VLDL [Mass/Vol] Cholesterol in VLDL [Mass/volume] in Serum or Plasma by calculation [facility] Cholesterol in VLDL [Mass/Vol] 24.4 mg/dL [facility] Erythrocyte distribution wid th Auto (RBC) [Ratio]on 03-02-2025 Erythrocyte distribution width (RBC) [Ratio] Erythrocyte distribution width [Ratio] by Automated count 11.0-15.0 [facility] Erythrocyte distribution width (RBC) [Ratio] 13.4 % 11.0-15.0 [facility] Estimated glomerular filtrat ion rate (GFR) non- Americanon 03-02-2025 GFR/1.73 sq M.predicted among non-blacks MDRD (S/P/Bld) [Vol rate/Area] Estimated glomerular filtration rate (GFR) non- Low >=60 mL/min/1.73 m 2 [facility] GFR/1.73 sq M.predicted among non-blacks MDRD (S/P/Bld) [Vol rate/Area] 27 mL/min/{1.73_m2} Low >=60 mL/min/1.73 m 2 [facility] Hematocrit Auto (Bld) [Volum e fraction]on 03-02-2025 Hematocrit (Bld) [Volume fraction] Hematocrit [Volume Fraction] of Blood by Automated count 36.0-48.0 [facility] Hematocrit (Bld) [Volume fraction] 38.7 % 36.0-48.0 [facility] Hemoglobin [Mass/volume] in Bloodon 03-02-2025 Hemoglobin (Bld) [Mass/Vol] Hemoglobin [Mass/volume] in Blood 12.0-16.0 [facility] Hemoglobin (Bld) [Mass/Vol] 12.9 g/dL 12.0-16.0 [facility] Iron binding capacity [Mass/ volume] in Serum or Plasmaon 03-02-2025 Iron binding capacity [Mass/Vol] Iron binding capacity [Mass/volume] in Serum or Plasma 250.0-450.0 [facility] Iron binding capacity [Mass/Vol] 278.0 ug/dL 250.0-450.0 [facility] Iron saturation [Mass Fracti on] in Serum or Plasmaon 03-02-2025 Iron saturation [Mass fraction] Iron saturation [Mass Fraction] in Serum or Plasma [facility] Iron saturation [Mass fraction] 22.3 % [facility] Laboratory - Chemistry and C hemistry - challengeon 03-02-2025 Albumin [Mass/Vol] 2.4 g/dL Low 3.4-5.0 [facility] Calcium [Mass/Vol] 8.1 mg/dL Low 8.5-10.1 [facility] Chloride [Moles/Vol] 96 mmol/L Low 98-107 [facility] Cholesterol [Mass/Vol] 136 mg/dL <=200 [facility] Cholesterol in HDL [Mass/Vol] 56 mg/dL 40-60 [facility] Comment on above: > or =60 mg/dl - LOW CARDIOVASCULAR RISK<40 mg/dl - HIGH CARDIOVASCULAR RISK CO2 [Moles/Vol] 31.2 mmol/L 21.0-32.0 [facility] Creatinine [Mass/Vol] 1.83 mg/dL High 0.55-1.02 [facility] Ferritin [Mass/Vol] 114.0 ng/mL 8.0-252.0 [facility] GFR/1.73 sq M.predicted MDRD (S/P/Bld) [Vol rate/Area] 32 mL/min/{1.73_m2} Low >=60 mL/min/1.73 m 2 [facility] Glucose [Mass/Vol] 337 mg/dL High 74-106 [facility] Iron [Mass/Vol] 62.0 ug/dL 50.0-170.0 [facility] Magnesium [Mass/Vol] 1.0 mg/dL Low 1.8-2.4 [facility] Natriuretic peptide B (Bld) [Mass/Vol] 4236.0 pg/mL Critically high <=1800.0 [facility] Comment on above: RESULTS CALLED TO AN BRYANNA ACUNA Potassium [Moles/Vol] 3.6 mmol/L 3.5-5.1 [facility] Sodium [Moles/Vol] 137 mmol/L 136-145 [facility] Triglyceride [Mass/Vol] 122 mg/dL <=150 [facility] Urate [Mass/Vol] 8.1 mg/dL High 2.6-6.0 [facility] Urea nitrogen [Mass/Vol] 53.0 mg/dL High 7.0-18.0 [facility] Urea nitrogen/Creatinine [Mass ratio] 29.0 mg/mg [facility] Bilirubin Ql (U) Negative NEGATIVE [facility] Glucose (U) [Mass/Vol] 250 mg/dL Abnormal NEGATIVE [facility] Ketones Ql (U) Negative NEGATIVE [facility] pH (U) 6.0 [pH] 5.0-9.0 [facility] Specific gravity (U) [Rel density] 1.020 1.005-1.025 [facility] Urobilinogen Qn (U) 0.2 {Meka'U}/dL 0.2-1.0 [facility] Laboratory - Specimen inform ationon 03-02-2025 Appearance (U) CLEAR CLEAR [facility] Color (U) LT. YELLOW YELLOW [facility] Laboratory - Urinalysison Leukocyte esterase Test strip Ql (U) Negative NEGATIVE [facility] Mucus Ql (Urine sed) TRACE Abnormal NONE SEEN [facility] Nitrite Ql (U) Negative NEGATIVE [facility] Protein (U) [Mass/Vol] 186.2 mg/dL High <=11.9 [facility] Protein Ql (U) >=300 mg/dL Abnormal NEG/TRACE [facility] Leukocytes [#/volume] correc gali for nucleated erythrocytes in Blood by Automated counon 03-02-2025 WBC corrected for nucl RBC Auto (Bld) [#/Vol] Leukocytes [#/volume] corrected for nucleated erythrocytes in Blood by Automated coun 4.0-11.0 [facility] WBC corrected for nucl RBC Auto (Bld) [#/Vol] 8.7 10 3/uL 4.0-11.0 [facility] MCH Auto (RBC) [Entitic mass ]on 03-02-2025 MCH (RBC) [Entitic mass] MCH [Entitic mass] by Automated count 26.7-34.0 [facility] MCH (RBC) [Entitic mass] 29.4 pg 26.7-34.0 [facility] MCHC Auto (RBC) [Mass/Vol]on 03-02-2025 MCHC (RBC) [Mass/Vol] MCHC [Mass/volume] by Automated count 29.9-35.2 [facility] MCHC (RBC) [Mass/Vol] 33.3 g/dL 29.9-35.2 [facility] MCV Auto (RBC) [Entitic vol] on 03-02-2025 MCV (RBC) [Entitic vol] MCV [Entitic volume] by Automated count 81.0-99.0 [facility] MCV (RBC) [Entitic vol] 88.2 fL 81.0-99.0 [facility] No Panel Informationon 03-02 25-Hydroxy Vitamin D Total 10.8 ng/mL [facility] Comment on above: <20 ng/mL Vit D defi cient20-<30 ng/mL Vit D xdwkfbzyvfbh19-999 ng/mL Vit D sufficient>100 ng/mL Potential Toxicity Parathyroid Hormone (Intact) 57 pg/mL [facility] Comment on above: Performed at: [address] [id number] Director: Dimitri Landis PhD, Phone: [phone] Phosphorus Level 4.9 mg/dL High 2.6-4.7 [facility] 57 pg/mL [facility] 10.8 ng/mL [facility] 114.0 ng/mL 8.0-252.0 [facility] 4236.0 pg/mL Critically high <=1800.0 [facility] 1.0 mg/dL Low 1.8-2.4 [facility] 2.4 g/dL Low 3.4-5.0 [facility] 4.9 mg/dL High 2.6-4.7 [facility] 8.1 mg/dL Low 8.5-10.1 [facility] 136 mg/dL <=200 [facility] 29.0 [facility] 62.0 ug/dL 50.0-170.0 [facility] 56 mg/dL 40-60 [facility] 53.0 mg/dL High 7.0-18.0 [facility] 122 mg/dL <=150 [facility] 96 mmol/L Low 98-107 [facility] 31.2 mmol/L 21.0-32.0 [facility] 1.83 mg/dL High 0.55-1.02 [facility] 32 Low >=60 mL/min/1.73 m 2 [facility] 337 mg/dL High 74-106 [facility] 3.6 mmol/L 3.5-5.1 [facility] 137 mmol/L 136-145 [facility] Urine Bacteria SMALL #/HPF Abnormal NONE SEEN [facility] Urine Occult Blood TRACE-I NEGATIVE [facility] Urine Other Casts NONE SEEN #/LPF NONE SEEN [facility] Urine Other Crystals None Seen #/HPF None Seen [facility] Urine Random Creatinine 26.93 mg/dL 20.00-300.0 0 [facility] Urine RBC 2-5 #/HPF Abnormal 0-2 [facility] Urine Squamous Epithelial Cells FEW #/LPF Abnormal NONE/RARE [facility] Urine WBC NONE SEEN #/HPF NONE SEEN [facility] 26.93 mg/dL 20.00-300.0 0 [facility] 186.2 mg/dL High <=11.9 [facility] Office Visiton 03-02-2025 Follow-up visit [id number] Joe Call 1945 Date Provider Department Center 03/02/2025 [id number] BOYD [facility] Family History Problem Relation Age of Onset Heart disease Mother Heart attack Father Coronary artery disease Other Diabetes Other Polycystic kidney disease Other Family Status - Relation Status Age at Mother Father Sister Brother Other Level of Service:[address] [place] OFFICE/OUTPATIENT ESTABLISHED MOD MDM 30 MIN Reason for Visit and Comments: 5 week follow up with Labs [Other] Normal [facility] Orders Onlyon 03-02-2025 Orders Only [id number] Joe Call 1945 F Date Provider Department Center 03/02/2025 ARSENIO CASTELLANO [facility] Family History Problem Relation Age of Onset Heart disease Mother Heart attack Father Coronary artery disease Other Diabetes Other Polycystic kidney disease Other Family Status - Relation Status Age at Mother Father Sister Brother Other Normal [facility] Platelet mean volume Auto (B ld) [Entitic vol]on 03-02-2025 Platelet mean volume (Bld) [Entitic vol] Platelet mean volume [Entitic volume] in Blood by Automated count 9.5-13.5 [facility] Platelet mean volume (Bld) [Entitic vol] 11.7 fL 9.5-13.5 [facility] Platelets Auto (Bld) [#/Vol] on 03-02-2025 Platelets (Bld) [#/Vol] Platelets [#/volume] in Blood by Automated count 150-450 [facility] Platelets (Bld) [#/Vol] 150 10 3/uL 150-450 [facility] RBC Auto (Bld) [#/Vol]on RBC (Bld) [#/Vol] Erythrocytes [#/volu me] in Blood by Automated count 4.20-5.40 [facility] RBC (Bld) [#/Vol] 4.39 10 6/uL 4.20-5.40 [facility] Serum or plasma anion gap de terminationon 03-02-2025 Anion gap [Moles/Vol] Serum or plasma an ion gap determination [facility] Anion gap [Moles/Vol] 13.4 [facility] Serum or plasma total choles terol/high density lipoprotein (HDL) cholesterol mass herminia 03-02-2025 Cholesterol.total/Chol esterol in HDL [Mass ratio] Serum or plasma total cholesterol/high density lipoprotein (HDL) cholesterol mass rat [facility] Comment on above: 3.3 - 4.4 LOW RISK4. 4 - 7.1 AVERAGE RISK7.1 - 11.0 MODERATE RISK>11.0 HIGH RISK Cholesterol.total/Chol esterol in HDL [Mass ratio] 2.4 {ratio} [facility] Comment on above: 3.3 - 4.4 LOW RISK4. 4 - 7.1 AVERAGE RISK7.1 - 11.0 MODERATE RISK>11.0 HIGH RISK Urine protein/creatinine rat ioon 03-02-2025 Protein/Creatinine (U) [Ratio] Urine protein/creatinine ratio [facility] Protein/Creatinine (U) [Ratio] 6.91 [facility] Yeast detection in urine sed iment by light microscopyon 03-02-2025 Yeast LM Ql (Urine sed) SEEN Abnormal NONE SEEN [facility] Office Visiton 01-28-2025 Follow-up visit [id number] Joe Call 1945 F Date Provider Department Center 01/28/2025 [id number]-EWFLPGSABRINA LUNA [facility] Family History Problem Relation Age of Onset Coronary artery disease Other Diabetes Other Polycystic kidney disease Other Family Status - Relation Status Age at Other Level of Service:67310 [place] OFFICE/OUTPATIENT ESTABLISHED MOD MDM 30 MIN Reason for Visit and Comments: Hypertension [043325] Congestive Heart Failure [127] - Discharged yesterday from [facility] for CHF. Discharge papers from [facility] do not have her on a diuretic. Patient believes she's taking furosemide 40mg every other day. Coronary Artery Disease [187] Atrial Fibrillation [80] - Denies lightheadedness/syncope and bleeding on Xarelto. Hyperlipidemia [182] - No lipids since last visit. Edema [[id number]] Shortness of Breath [845941] - Improving. Palpitations [770070] Fall [107323] - Fell a few days ago at home when she slipped on the carpet. Normal [facility] Basophils Auto (Bld) [#/Vol] on 01-27-2025 Basophils (Bld) [#/Vol] Automated basophil count 0.0-0.1 [facility] Basophils/100 WBC Auto (Bld) on 01-27-2025 Basophils/100 WBC (Bld) Automated basophil % 0.2-2.0 [facility] Eosinophils/100 WBC Auto (Bl d)on 01-27-2025 Eosinophils/100 WBC (Bld) Automated eosinophil % 0.9-7.0 [facility] Erythrocyte distribution wid th Auto (RBC) [Ratio]on 01-27-2025 Erythrocyte distribution width (RBC) [Ratio] Erythrocyte distribution width [Ratio] by Automated count 11.0-15.0 [facility] Estimated glomerular filtrat ion rate (GFR) non- Americanon 01-27-2025 GFR/1.73 sq M.predicted among non-blacks MDRD (S/P/Bld) [Vol rate/Area] Estimated glomerular filtration rate (GFR) non- Low >=60 mL/min/1.73 m 2 [facility] Globulin Calc (S) [Mass/Vol] on 01-27-2025 Globulin (S) [Mass/Vol] Serum globulin measurement by calculation (mass/volume) [facility] Hematocrit Auto (Bld) [Volum e fraction]on 01-27-2025 Hematocrit (Bld) [Volume fraction] Hematocrit [Volume Fraction] of Blood by Automated count 36.0-48.0 [facility] Hemoglobin [Mass/volume] in Bloodon 01-27-2025 Hemoglobin (Bld) [Mass/Vol] Hemoglobin [Mass/volume] in Blood 12.0-16.0 [facility] Laboratory - Chemistry and C hemistry - challengeon 01-27-2025 Potassium [Moles/Vol] 3.8 mmol/L 3.5-5.1 [facility] Albumin [Mass/Vol] 2.1 g/dL Low 3.4-5.0 [facility] ALP [Catalytic activity/Vol] 79 U/L 46-116 [facility] ALT [Catalytic activity/Vol] 8 U/L Low 14-59 [facility] AST [Catalytic activity/Vol] 17 U/L 15-37 [facility] Bilirubin [Mass/Vol] 0.4 mg/dL 0.2-1.0 [facility] Calcium [Mass/Vol] 8.3 mg/dL Low 8.5-10.1 [facility] Chloride [Moles/Vol] 105 mmol/L 98-107 [facility] CO2 [Moles/Vol] 36.4 mmol/L High 21.0-32.0 [facility] Creatinine [Mass/Vol] 1.52 mg/dL High 0.55-1.02 [facility] GFR/1.73 sq M.predicted MDRD (S/P/Bld) [Vol rate/Area] 40 mL/min/{1.73_m2} Low >=60 mL/min/1.73 m 2 [facility] Glucose [Mass/Vol] 113 mg/dL High 74-106 [facility] Magnesium [Mass/Vol] 1.3 mg/dL Low 1.8-2.4 [facility] Protein [Mass/Vol] 6.1 g/dL Low 6.4-8.2 [facility] Sodium [Moles/Vol] 144 mmol/L 136-145 [facility] Urea nitrogen [Mass/Vol] 22.0 mg/dL High 7.0-18.0 [facility] Urea nitrogen/Creatinine [Mass ratio] 14.5 mg/mg [facility] Laboratory - Hematology and Cell countson 01-27-2025 Immature granulocytes/100 WBC (Bld) 0.2 % 0.0-0.5 [facility] Leukocytes [#/volume] correc gali for nucleated erythrocytes in Blood by Automated counon 01-27-2025 WBC corrected for nucl RBC Auto (Bld) [#/Vol] Leukocytes [#/volume] corrected for nucleated erythrocytes in Blood by Automated coun 4.0-11.0 [facility] Lymphocytes Auto (Bld) [#/Vo l]on 01-27-2025 Lymphocytes (Bld) [#/Vol] Lymphocytes [#/volume] in Blood by Automated count 1.2-3.8 [facility] Lymphocytes/100 WBC Auto (Bl d)on 01-27-2025 Lymphocytes/100 WBC (Bld) Lymphocytes/100 leukocytes in Blood by Automated count 20.5-60.0 [facility] MCH Auto (RBC) [Entitic mass ]on 01-27-2025 MCH (RBC) [Entitic mass] MCH [Entitic mass] by Automated count 26.7-34.0 [facility] MCHC Auto (RBC) [Mass/Vol]on 01-27-2025 MCHC (RBC) [Mass/Vol] MCHC [Mass/volume] by Automated count 29.9-35.2 [facility] MCV Auto (RBC) [Entitic vol] on 01-27-2025 MCV (RBC) [Entitic vol] MCV [Entitic volume] by Automated count 81.0-99.0 [facility] Monocytes Auto (Bld) [#/Vol] on 01-27-2025 Monocytes (Bld) [#/Vol] Automated blood monocyte count High 0.3-0.8 [facility] Monocytes/100 WBC Auto (Bld) on 01-27-2025 Monocytes/100 WBC (Bld) Automated monocyte % 1.7-12.0 [facility] Neutrophils Auto (Bld) [#/Vo l]on 01-27-2025 Neutrophils (Bld) [#/Vol] Neutrophils [#/volume] in Blood by Automated count 1.4-6.5 [facility] Neutrophils/100 WBC Auto (Bl d)on 01-27-2025 Neutrophils/100 WBC (Bld) Automated neutrophil % 43.0-75.0 [facility] No Panel Informationon 01-27 3.8 mmol/L 3.5-5.1 [facility] Eosinophils # (Auto) 0.2 10 3/uL 0.0-0.7 [facility] Immature Granulocyte # (Auto) 0.02 10 3/uL 0.00-0.03 [facility] 1.3 mg/dL Low 1.8-2.4 [facility] 0.2 10 3/uL 0.0-0.7 [facility] 2.1 g/dL Low 3.4-5.0 [facility] 79 U/L 46-116 [facility] 8 U/L Low 14-59 [facility] 17 U/L 15-37 [facility] 0.02 10 3/uL 0.00-0.03 [facility] 14.5 [facility] 0.2 % 0.0-0.5 [facility] 22.0 mg/dL High 7.0-18.0 [facility] 8.3 mg/dL Low 8.5-10.1 [facility] 105 mmol/L 98-107 [facility] 36.4 mmol/L High 21.0-32.0 [facility] 1.52 mg/dL High 0.55-1.02 [facility] 40 Low >=60 mL/min/1.73 m 2 [facility] 113 mg/dL High 74-106 [facility] 144 mmol/L 136-145 [facility] 0.4 mg/dL 0.2-1.0 [facility] 6.1 g/dL Low 6.4-8.2 [facility] Platelet mean volume Auto (B ld) [Entitic vol]on 01-27-2025 Platelet mean volume (Bld) [Entitic vol] Platelet mean volume [Entitic volume] in Blood by Automated count 9.5-13.5 [facility] Platelets Auto (Bld) [#/Vol] on 01-27-2025 Platelets (Bld) [#/Vol] Platelets [#/volume] in Blood by Automated count 150-450 [facility] RBC Auto (Bld) [#/Vol]on RBC (Bld) [#/Vol] Erythrocytes [#/volu me] in Blood by Automated count 4.20-5.40 [facility] Serum or plasma albumin/glob ulin mass ratioon 01-27-2025 Albumin/Globulin [Mass ratio] Serum or plasma albumin/globulin mass ratio [facility] Serum or plasma anion gap de terminationon 01-27-2025 Anion gap [Moles/Vol] Serum or plasma an ion gap determination [facility] Basophils Auto (Bld) [#/Vol] on 01-26-2025 Basophils (Bld) [#/Vol] Automated basophil count 0.0-0.1 [facility] Basophils/100 WBC Auto (Bld) on 01-26-2025 Basophils/100 WBC (Bld) Automated basophil % 0.2-2.0 [facility] Eosinophils/100 WBC Auto (Bl d)on 01-26-2025 Eosinophils/100 WBC (Bld) Automated eosinophil % 0.9-7.0 [facility] Erythrocyte distribution wid th Auto (RBC) [Ratio]on 01-26-2025 Erythrocyte distribution width (RBC) [Ratio] Erythrocyte distribution width [Ratio] by Automated count 11.0-15.0 [facility] Estimated glomerular filtrat ion rate (GFR) non- Americanon 01-26-2025 GFR/1.73 sq M.predicted among non-blacks MDRD (S/P/Bld) [Vol rate/Area] Estimated glomerular filtration rate (GFR) non- Low >=60 mL/min/1.73 m 2 [facility] Globulin Calc (S) [Mass/Vol] on 01-26-2025 Globulin (S) [Mass/Vol] Serum globulin measurement by calculation (mass/volume) [facility] Hematocrit Auto (Bld) [Volum e fraction]on 01-26-2025 Hematocrit (Bld) [Volume fraction] Hematocrit [Volume Fraction] of Blood by Automated count 36.0-48.0 [facility] Hemoglobin [Mass/volume] in Bloodon 01-26-2025 Hemoglobin (Bld) [Mass/Vol] Hemoglobin [Mass/volume] in Blood 12.0-16.0 [facility] Laboratory - Chemistry and C hemistry - challengeon 01-26-2025 Albumin [Mass/Vol] 1.9 g/dL Low 3.4-5.0 [facility] ALP [Catalytic activity/Vol] 77 U/L 46-116 [facility] ALT [Catalytic activity/Vol] 11 U/L Low 14-59 [facility] AST [Catalytic activity/Vol] 19 U/L 15-37 [facility] Bilirubin [Mass/Vol] 0.4 mg/dL 0.2-1.0 [facility] Calcium [Mass/Vol] 8.0 mg/dL Low 8.5-10.1 [facility] Chloride [Moles/Vol] 105 mmol/L 98-107 [facility] CO2 [Moles/Vol] 35.1 mmol/L High 21.0-32.0 [facility] Creatinine [Mass/Vol] 1.36 mg/dL High 0.55-1.02 [facility] GFR/1.73 sq M.predicted MDRD (S/P/Bld) [Vol rate/Area] 46 mL/min/{1.73_m2} Low >=60 mL/min/1.73 m 2 [facility] Glucose [Mass/Vol] 133 mg/dL High 74-106 [facility] Magnesium [Mass/Vol] 1.3 mg/dL Low 1.8-2.4 [facility] Potassium [Moles/Vol] 2.9 mmol/L Critically low 3.5-5.1 [facility] Comment on above: RESULTS CALLED TO JOSE MARTIN DODGE RN @BY Alla Venegas at 0635 Protein [Mass/Vol] 5.8 g/dL Low 6.4-8.2 [facility] Sodium [Moles/Vol] 145 mmol/L 136-145 [facility] Urea nitrogen [Mass/Vol] 21.0 mg/dL High 7.0-18.0 [facility] Urea nitrogen/Creatinine [Mass ratio] 15.4 mg/mg [facility] Laboratory - Hematology and Cell countson 01-26-2025 Immature granulocytes/100 WBC (Bld) 0.1 % 0.0-0.5 [facility] Leukocytes [#/volume] correc gali for nucleated erythrocytes in Blood by Automated counon 01-26-2025 WBC corrected for nucl RBC Auto (Bld) [#/Vol] Leukocytes [#/volume] corrected for nucleated erythrocytes in Blood by Automated coun 4.0-11.0 [facility] Lymphocytes Auto (Bld) [#/Vo l]on 01-26-2025 Lymphocytes (Bld) [#/Vol] Lymphocytes [#/volume] in Blood by Automated count 1.2-3.8 [facility] Lymphocytes/100 WBC Auto (Bl d)on 01-26-2025 Lymphocytes/100 WBC (Bld) Lymphocytes/100 leukocytes in Blood by Automated count Low 20.5-60.0 [facility] MCH Auto (RBC) [Entitic mass ]on 01-26-2025 MCH (RBC) [Entitic mass] MCH [Entitic mass] by Automated count 26.7-34.0 [facility] MCHC Auto (RBC) [Mass/Vol]on 01-26-2025 MCHC (RBC) [Mass/Vol] MCHC [Mass/volume] by Automated count 29.9-35.2 [facility] MCV Auto (RBC) [Entitic vol] on 01-26-2025 MCV (RBC) [Entitic vol] MCV [Entitic volume] by Automated count 81.0-99.0 [facility] Monocytes Auto (Bld) [#/Vol] on 01-26-2025 Monocytes (Bld) [#/Vol] Automated blood monocyte count 0.3-0.8 [facility] Monocytes/100 WBC Auto (Bld) on 01-26-2025 Monocytes/100 WBC (Bld) Automated monocyte % 1.7-12.0 [facility] Neutrophils Auto (Bld) [#/Vo l]on 01-26-2025 Neutrophils (Bld) [#/Vol] Neutrophils [#/volume] in Blood by Automated count 1.4-6.5 [facility] Neutrophils/100 WBC Auto (Bl d)on 01-26-2025 Neutrophils/100 WBC (Bld) Automated neutrophil % 43.0-75.0 [facility] No Panel Informationon 01-26 Eosinophils # (Auto) 0.1 10 3/uL 0.0-0.7 [facility] Immature Granulocyte # (Auto) 0.01 10 3/uL 0.00-0.03 [facility] Troponin I High Sensitivity 30.9 pg/mL 4.0-51.3 [facility] Comment on above: CUT-OFF POINTS HAVE [...] AND CLINICAL INFORMATION. 1.3 mg/dL Low 1.8-2.4 [facility] 30.9 pg/mL 4.0-51.3 [facility] 0.1 10 3/uL 0.0-0.7 [facility] 1.9 g/dL Low 3.4-5.0 [facility] 77 U/L 46-116 [facility] 11 U/L Low 14-59 [facility] 19 U/L 15-37 [facility] 0.01 10 3/uL 0.00-0.03 [facility] 15.4 [facility] 0.1 % 0.0-0.5 [facility] 21.0 mg/dL High 7.0-18.0 [facility] 8.0 mg/dL Low 8.5-10.1 [facility] 105 mmol/L 98-107 [facility] 35.1 mmol/L High 21.0-32.0 [facility] 1.36 mg/dL High 0.55-1.02 [facility] 46 Low >=60 mL/min/1.73 m 2 [facility] 133 mg/dL High 74-106 [facility] 2.9 mmol/L Critically low 3.5-5.1 [facility] 145 mmol/L 136-145 [facility] 0.4 mg/dL 0.2-1.0 [facility] 5.8 g/dL Low 6.4-8.2 [facility] Platelet mean volume Auto (B ld) [Entitic vol]on 01-26-2025 Platelet mean volume (Bld) [Entitic vol] Platelet mean volume [Entitic volume] in Blood by Automated count 9.5-13.5 [facility] Platelets Auto (Bld) [#/Vol] on 01-26-2025 Platelets (Bld) [#/Vol] Platelets [#/volume] in Blood by Automated count 150-450 [facility] RBC Auto (Bld) [#/Vol]on RBC (Bld) [#/Vol] Erythrocytes [#/volu me] in Blood by Automated count Low 4.20-5.40 [facility] Serum or plasma albumin/glob ulin mass ratioon 01-26-2025 Albumin/Globulin [Mass ratio] Serum or plasma albumin/globulin mass ratio [facility] Serum or plasma anion gap de terminationon 01-26-2025 Anion gap [Moles/Vol] Serum or plasma an ion gap determination [facility] Basophils Auto (Bld) [#/Vol] on 01-25-2025 Basophils (Bld) [#/Vol] Automated basophil count 0.0-0.1 [facility] Basophils/100 WBC Auto (Bld) on 01-25-2025 Basophils/100 WBC (Bld) Automated basophil % 0.2-2.0 [facility] Eosinophils/100 WBC Auto (Bl d)on 01-25-2025 Eosinophils/100 WBC (Bld) Automated eosinophil % 0.9-7.0 [facility] Erythrocyte distribution wid th Auto (RBC) [Ratio]on 01-25-2025 Erythrocyte distribution width (RBC) [Ratio] Erythrocyte distribution width [Ratio] by Automated count 11.0-15.0 [facility] Estimated glomerular filtrat ion rate (GFR) non- Americanon 01-25-2025 GFR/1.73 sq M.predicted among non-blacks MDRD (S/P/Bld) [Vol rate/Area] Estimated glomerular filtration rate (GFR) non- Low >=60 mL/min/1.73 m 2 [facility] Hematocrit Auto (Bld) [Volum e fraction]on 01-25-2025 Hematocrit (Bld) [Volume fraction] Hematocrit [Volume Fraction] of Blood by Automated count 36.0-48.0 [facility] Hemoglobin [Mass/volume] in Bloodon 01-25-2025 Hemoglobin (Bld) [Mass/Vol] Hemoglobin [Mass/volume] in Blood 12.0-16.0 [facility] Laboratory - Chemistry and C hemistry - challengeon 01-25-2025 Potassium [Moles/Vol] 3.1 mmol/L Low 3.5-5.1 [facility] Free T4 [Mass/Vol] 1.65 ng/dL High 0.76-1.46 [facility] Magnesium [Mass/Vol] 1.2 mg/dL Low 1.8-2.4 [facility] TSH Qn 6.107 m[IU]/L High 0.358-3.740 [facility] Calcium [Mass/Vol] 8.1 mg/dL Low 8.5-10.1 [facility] Chloride [Moles/Vol] 104 mmol/L 98-107 [facility] CO2 [Moles/Vol] 34.6 mmol/L High 21.0-32.0 [facility] Creatinine [Mass/Vol] 1.49 mg/dL High 0.55-1.02 [facility] GFR/1.73 sq M.predicted MDRD (S/P/Bld) [Vol rate/Area] 41 mL/min/{1.73_m2} Low >=60 mL/min/1.73 m 2 [facility] Glucose [Mass/Vol] 121 mg/dL High 74-106 [facility] Natriuretic peptide B (Bld) [Mass/Vol] 7089.0 pg/mL Critically high <=1800.0 [facility] Comment on above: RESULTS CALLED TO RENETTA Hogan, RN @BY Andrea Long [place] at 0458 Sodium [Moles/Vol] 144 mmol/L 136-145 [facility] Urea nitrogen [Mass/Vol] 22.0 mg/dL High 7.0-18.0 [facility] Urea nitrogen/Creatinine [Mass ratio] 14.8 mg/mg [facility] Laboratory - Hematology and Cell countson 01-25-2025 Immature granulocytes/100 WBC (Bld) 0.4 % 0.0-0.5 [facility] Leukocytes [#/volume] correc gali for nucleated erythrocytes in Blood by Automated counon 01-25-2025 WBC corrected for nucl RBC Auto (Bld) [#/Vol] Leukocytes [#/volume] corrected for nucleated erythrocytes in Blood by Automated coun 4.0-11.0 [facility] Lymphocytes Auto (Bld) [#/Vo l]on 01-25-2025 Lymphocytes (Bld) [#/Vol] Lymphocytes [#/volume] in Blood by Automated count 1.2-3.8 [facility] Lymphocytes/100 WBC Auto (Bl d)on 01-25-2025 Lymphocytes/100 WBC (Bld) Lymphocytes/100 leukocytes in Blood by Automated count Low 20.5-60.0 [facility] MCH Auto (RBC) [Entitic mass ]on 01-25-2025 MCH (RBC) [Entitic mass] MCH [Entitic mass] by Automated count 26.7-34.0 [facility] MCHC Auto (RBC) [Mass/Vol]on 01-25-2025 MCHC (RBC) [Mass/Vol] MCHC [Mass/volume] by Automated count 29.9-35.2 [facility] MCV Auto (RBC) [Entitic vol] on 01-25-2025 MCV (RBC) [Entitic vol] MCV [Entitic volume] by Automated count 81.0-99.0 [facility] Monocytes Auto (Bld) [#/Vol] on 01-25-2025 Monocytes (Bld) [#/Vol] Automated blood monocyte count 0.3-0.8 [facility] Monocytes/100 WBC Auto (Bld) on 01-25-2025 Monocytes/100 WBC (Bld) Automated monocyte % 1.7-12.0 [facility] Neutrophils Auto (Bld) [#/Vo l]on 01-25-2025 Neutrophils (Bld) [#/Vol] Neutrophils [#/volume] in Blood by Automated count 1.4-6.5 [facility] Neutrophils/100 WBC Auto (Bl d)on 01-25-2025 Neutrophils/100 WBC (Bld) Automated neutrophil % 43.0-75.0 [facility] No Panel Informationon 01-25 3.1 mmol/L Low 3.5-5.1 [facility] Clostridium difficile (PCR)(LAB) Negative [facility] Negative [facility] Troponin I High Sensitivity 28.4 pg/mL 4.0-51.3 [facility] Comment on above: CUT-OFF POINTS HAVE [...] AND CLINICAL INFORMATION. 1.65 ng/dL High 0.76-1.46 [facility] 6.107 u[iU]/mL High 0.358-3.740 [facility] 28.4 pg/mL 4.0-51.3 [facility] 1.2 mg/dL Low 1.8-2.4 [facility] Eosinophils # (Auto) 0.1 10 3/uL 0.0-0.7 [facility] Immature Granulocyte # (Auto) 0.03 10 3/uL 0.00-0.03 [facility] 7089.0 pg/mL Critically high <=1800.0 [facility] 14.8 [facility] 22.0 mg/dL High 7.0-18.0 [facility] 0.1 10 3/uL 0.0-0.7 [facility] 8.1 mg/dL Low 8.5-10.1 [facility] 104 mmol/L 98-107 [facility] 34.6 mmol/L High 21.0-32.0 [facility] 1.49 mg/dL High 0.55-1.02 [facility] 0.03 10 3/uL 0.00-0.03 [facility] 41 Low >=60 mL/min/1.73 m 2 [facility] 0.4 % 0.0-0.5 [facility] 121 mg/dL High 74-106 [facility] 144 mmol/L 136-145 [facility] Platelet mean volume Auto (B ld) [Entitic vol]on 01-25-2025 Platelet mean volume (Bld) [Entitic vol] Platelet mean volume [Entitic volume] in Blood by Automated count 9.5-13.5 [facility] Platelets Auto (Bld) [#/Vol] on 01-25-2025 Platelets (Bld) [#/Vol] Platelets [#/volume] in Blood by Automated count 150-450 [facility] RBC Auto (Bld) [#/Vol]on RBC (Bld) [#/Vol] Erythrocytes [#/volu me] in Blood by Automated count Low 4.20-5.40 [facility] Serum or plasma anion gap de terminationon 01-25-2025 Anion gap [Moles/Vol] Serum or plasma an ion gap determination [facility] Laboratory - Chemistry and C hemistry - challengeon 01-21-2025 Bilirubin Ql (U) ++ [facility] Glucose (U) [Mass/Vol] [facility] Ketones Ql (U) Negative [facility] pH (U) 6.0 [pH] [facility] Specific gravity (U) [Rel density] 1.010 [facility] Urobilinogen (U) [Mass/Vol] 0.2 mg/dL [facility] Laboratory - Specimen inform ationon 01-21-2025 Appearance (U) cloudy [facility] Color (U) darkyellow [facility] Laboratory - Urinalysison Leukocyte esterase Test strip Ql (U) Negative [facility] Nitrite Ql (U) Negative [facility] Protein Ql (U) ++++ [facility] No Panel Informationon 01-21 Urine Occult Blood 5-10 [facility] darkyellow [facility] cloudy [facility] 1.010 [facility] 6.0 [facility] Negative [facility] ++++ [facility] + [facility] 0.2 [facility] ++ [facility] 5-10 [facility] Basophils Auto (Bld) [#/Vol] on 12-04-2024 Basophils (Bld) [#/Vol] Automated basophil count 0.0-0.1 [facility] Basophils/100 WBC Auto (Bld) on 12-04-2024 Basophils/100 WBC (Bld) Automated basophil % 0.2-2.0 [facility] Eosinophils/100 WBC Auto (Bl d)on 12-04-2024 Eosinophils/100 WBC (Bld) Automated eosinophil % 0.9-7.0 [facility] Erythrocyte distribution wid th Auto (RBC) [Ratio]on 12-04-2024 Erythrocyte distribution width (RBC) [Ratio] Erythrocyte distribution width [Ratio] by Automated count 11.0-15.0 [facility] Estimated glomerular filtrat ion rate (GFR) non- Americanon 12-04-2024 GFR/1.73 sq M.predicted among non-blacks MDRD (S/P/Bld) [Vol rate/Area] Estimated glomerular filtration rate (GFR) non- Low >=60 mL/min/1.73 m 2 [facility] Globulin Calc (S) [Mass/Vol] on 12-04-2024 Globulin (S) [Mass/Vol] Serum globulin measurement by calculation (mass/volume) [facility] Hematocrit Auto (Bld) [Volum e fraction]on 12-04-2024 Hematocrit (Bld) [Volume fraction] Hematocrit [Volume Fraction] of Blood by Automated count 36.0-48.0 [facility] Hemoglobin [Mass/volume] in Bloodon 12-04-2024 Hemoglobin (Bld) [Mass/Vol] Hemoglobin [Mass/volume] in Blood Low 12.0-16.0 [facility] INR in Platelet poor plasma by Coagulation assayon 12-04-2024 INR Coag (PPP) [Relative time] INR in Platelet poor plasma by Coagulation assay [facility] Comment on above: DESIRED INR:2.0-3.0 CONDITIONS NOT LISTED BELOW2.5-3.5 FOR PROSTHETIC HEART VALVE REPLACEMENT2.5-3.5 [facility] THROMBOSIS Laboratory - Chemistry and C hemistry - challengeon 12-04-2024 Albumin [Mass/Vol] 2.7 g/dL Low 3.4-5.0 [facility] ALP [Catalytic activity/Vol] 111 U/L 46-116 [facility] ALT [Catalytic activity/Vol] 19 U/L 14-59 [facility] AST [Catalytic activity/Vol] 16 U/L 15-37 [facility] Bilirubin [Mass/Vol] 0.6 mg/dL 0.2-1.0 [facility] Calcium [Mass/Vol] 8.7 mg/dL 8.5-10.1 [facility] Chloride [Moles/Vol] 101 mmol/L 98-107 [facility] CO2 [Moles/Vol] 29.9 mmol/L 21.0-32.0 [facility] Creatinine [Mass/Vol] 1.24 mg/dL High 0.55-1.02 [facility] GFR/1.73 sq M.predicted MDRD (S/P/Bld) [Vol rate/Area] 51 mL/min/{1.73_m2} Low >=60 mL/min/1.73 m 2 [facility] Glucose [Mass/Vol] 310 mg/dL High 74-106 [facility] Natriuretic peptide B (Bld) [Mass/Vol] 3884.0 pg/mL Critically high <=1800.0 [facility] Comment on above: RESULTS CALLED TO AMILCAR RANGEL RN Potassium [Moles/Vol] 4.3 mmol/L 3.5-5.1 [facility] Protein [Mass/Vol] 7.0 g/dL 6.4-8.2 [facility] Sodium [Moles/Vol] 138 mmol/L 136-145 [facility] Urea nitrogen [Mass/Vol] 28.0 mg/dL High 7.0-18.0 [facility] Urea nitrogen/Creatinine [Mass ratio] 22.6 mg/mg [facility] Laboratory - Hematology and Cell countson 12-04-2024 Immature granulocytes/100 WBC (Bld) 0.2 % 0.0-0.5 [facility] Leukocytes [#/volume] correc gali for nucleated erythrocytes in Blood by Automated counon 12-04-2024 WBC corrected for nucl RBC Auto (Bld) [#/Vol] Leukocytes [#/volume] corrected for nucleated erythrocytes in Blood by Automated coun 4.0-11.0 [facility] Lymphocytes Auto (Bld) [#/Vo l]on 12-04-2024 Lymphocytes (Bld) [#/Vol] Lymphocytes [#/volume] in Blood by Automated count 1.2-3.8 [facility] Lymphocytes/100 WBC Auto (Bl d)on 12-04-2024 Lymphocytes/100 WBC (Bld) Lymphocytes/100 leukocytes in Blood by Automated count Low 20.5-60.0 [facility] MCH Auto (RBC) [Entitic mass ]on 12-04-2024 MCH (RBC) [Entitic mass] MCH [Entitic mass] by Automated count 26.7-34.0 [facility] MCHC Auto (RBC) [Mass/Vol]on 12-04-2024 MCHC (RBC) [Mass/Vol] MCHC [Mass/volume] by Automated count 29.9-35.2 [facility] MCV Auto (RBC) [Entitic vol] on 12-04-2024 MCV (RBC) [Entitic vol] MCV [Entitic volume] by Automated count 81.0-99.0 [facility] Monocytes Auto (Bld) [#/Vol] on 12-04-2024 Monocytes (Bld) [#/Vol] Automated blood monocyte count 0.3-0.8 [facility] Monocytes/100 WBC Auto (Bld) on 12-04-2024 Monocytes/100 WBC (Bld) Automated monocyte % 1.7-12.0 [facility] Neutrophils Auto (Bld) [#/Vo l]on 12-04-2024 Neutrophils (Bld) [#/Vol] Neutrophils [#/volume] in Blood by Automated count 1.4-6.5 [facility] Neutrophils/100 WBC Auto (Bl d)on 12-04-2024 Neutrophils/100 WBC (Bld) Automated neutrophil % 43.0-75.0 [facility] No Panel Informationon 12-04 Eosinophils # (Auto) 0.1 10 3/uL 0.0-0.7 [facility] Immature Granulocyte # (Auto) 0.02 10 3/uL 0.00-0.03 [facility] Troponin I High Sensitivity 19.6 pg/mL 4.0-51.3 [facility] Comment on above: CUT-OFF POINTS HAVE [...] volume] in Blood by Automated count 9.5-13.5 [facility] Platelets Auto (Bld) [#/Vol] on 12-04-2024 Platelets (Bld) [#/Vol] Platelets [#/volume] in Blood by Automated count 150-450 [facility] Prothrombin time (PT)on 11-13 PT Coag (PPP) [Time] Prothrombin time (PT) High 9.0- 11.6 [facility] RBC Auto (Bld) [#/Vol]on RBC (Bld) [#/Vol] Erythrocytes [#/volu me] in Blood by Automated count Low 4.20-5.40 [facility] Serum or plasma albumin/glob ulin mass ratioon 12-04-2024 Albumin/Globulin [Mass ratio] Serum or plasma albumin/globulin mass ratio [facility] Serum or plasma anion gap de terminationon 12-04-2024 Anion gap [Moles/Vol] Serum or plasma an ion gap determination [facility] Office Visiton 12-02-2024 Follow-up visit [id number] Joe Call 1945 F Date Provider Department Center 12/02/2024 [id number] LUNA Family History Problem Relation Age of Onset Coronary artery disease Other Diabetes Other Polycystic kidney disease Other Family Status - Relation Status Age at Other Level of Service:64697 [place] OFFICE/OUTPATIENT ESTABLISHED MOD MDM 30 MIN Reason for Visit and Comments: Atrial Fibrillation [80] Congestive Heart Failure [127] - Had BMP 3 weeks ago. Taking lasix PRN. Hypertension [035747] Bradycardia [321561] Normal [facility] 36on 11-18-2024 36 Regarding lab result s from 11/03/2024: MD Brooke Sawyer MA Creatinine appears to be better. Patient's made aware. Normal [facility] Ambulatory Visit Summaryon 0 11-13-2024 [...] FRANCHESCA PERAZA PA-C Where: [facility] [address] [address]- 2024 11:20 AM EST With: FRANCHESCA PERAZA PA-C Where: [facility] [address] [address]- Medications What How Much When Why Instructions [...] for choosing us for your care. Normal [facility] Estimated glomerular filtrat ion rate (GFR) non- Americanon 11-10-2024 GFR/1.73 sq M.predicted among non-blacks MDRD (S/P/Bld) [Vol rate/Area] Estimated glomerular filtration rate (GFR) non- Low >=60 mL/min/1.73 m 2 [facility] Laboratory - Chemistry and C hemistry - challengeon 11-10-2024 Albumin [Mass/Vol] 3.0 g/dL Low 3.4-5.0 [facility] Calcium [Mass/Vol] 8.5 mg/dL 8.5-10.1 [facility] Chloride [Moles/Vol] 99 mmol/L 98-107 [facility] CO2 [Moles/Vol] 26.2 mmol/L 21.0-32.0 [facility] Creatinine [Mass/Vol] 2.00 mg/dL High 0.55-1.02 [facility] GFR/1.73 sq M.predicted MDRD (S/P/Bld) [Vol rate/Area] 29 mL/min/{1.73_m2} Low >=60 mL/min/1.73 m 2 [facility] Glucose [Mass/Vol] 424 mg/dL High 74-106 [facility] Potassium [Moles/Vol] 4.5 mmol/L 3.5-5.1 [facility] Sodium [Moles/Vol] 136 mmol/L 136-145 [facility] Urea nitrogen [Mass/Vol] 58.0 mg/dL High 7.0-18.0 [facility] Urea nitrogen/Creatinine [Mass ratio] 29.0 mg/mg [facility] No Panel Informationon 11-10 Phosphorus Level 3.6 mg/dL 2.6-4.7 [facility] Serum or plasma anion gap de terminationon 11-10-2024 Anion gap [Moles/Vol] Serum or plasma an ion gap determination [facility] Urology Office/Clinic Noteon 11-04-2024 Urology Office/Clinic Note Urology Office/Clinic Note Chief Complaint Hospital follow up HPI Staff Pt. did see Dr. Gallardo about 20 years ago Admitted [facility] 10/16 after going to ER for weakness/SOB [...] note of the bladder scan anywhere on [facility] system or output volume once peacock placed). [...] it well. Follows w nephrology for CKD. [employer] 10/25/24 1.31 compared to 3.06 on 10/20/24 [...] peacock removal. (3) f/u 4-6 weeks w ne assuming good outcome of (1) and (2). Ordered: E&M of New Patient High 60-74 Min 35714 2. CKD (chronic kidney disease) (N18.9: Chronic kidney disease, unspecified) Follows w Dr Rapp [employer] 1.31 on day of dc (10/25/24) Most recent labs 11/03/24 - BUN 34 [employer] 1.86 GFR 26 Pretty variable all year. (Results scanned into documents) Will repeat in 1 week after peacock removal. Sees Dr Rapp either 11/10 or 11/11. Ordered: E&M of New Patient High 60-74 Min 07062 Renal Function Panel 3. Stress incontinence (N39.3: Stress incontinence (female) (male)) At baseline. Typically when stands from seated position or coughing. 2-4 pads per day. Reassess baseline sx at f/u in 4-6 wks. Ordered: E&M of New Patient High 60-74 Min 22497 Total time spent reviewing previous notes/results/external documents, preparing the chart, conducting the encounter with the patient and family, ordering tests/medications, and documenting the encounter was 60 minutes. Follow-up With When Contact Information SYDNIE HASSAN Within 6 weeks [address] [place] [address] Business (1) Additional Instructions: Patient [...] acetaminophen-oxycodone 3 (more content not included)... Normal [facility] Comment on above: Result Comment: Elec tronically Signed By: FRANCHESCA PERAZA PA-C\.br\Date and Time Signed: 11/04/24 11:13 EST Estimated glomerular filtrat ion rate (GFR) non- Americanon 11-03-2024 GFR/1.73 sq M.predicted among non-blacks MDRD (S/P/Bld) [Vol rate/Area] Estimated glomerular filtration rate (GFR) non- Low >=60 mL/min/1.73 m 2 [facility] Laboratory - Chemistry and C hemistry - challengeon 11-03-2024 Calcium [Mass/Vol] 8.8 mg/dL 8.5-10.1 [facility] Chloride [Moles/Vol] 99 mmol/L 98-107 [facility] CO2 [Moles/Vol] 23.1 mmol/L 21.0-32.0 [facility] Creatinine [Mass/Vol] 1.86 mg/dL High 0.55-1.02 [facility] GFR/1.73 sq M.predicted MDRD (S/P/Bld) [Vol rate/Area] 32 mL/min/{1.73_m2} Low >=60 mL/min/1.73 m 2 [facility] Glucose [Mass/Vol] 367 mg/dL High 74-106 [facility] Potassium [Moles/Vol] 4.7 mmol/L 3.5-5.1 [facility] Sodium [Moles/Vol] 134 mmol/L Low 136-145 [facility] Urea nitrogen [Mass/Vol] 34.0 mg/dL High 7.0-18.0 [facility] Urea nitrogen/Creatinine [Mass ratio] 18.3 mg/mg [facility] Serum or plasma anion gap de terminationon 11-03-2024 Anion gap [Moles/Vol] Serum or plasma an ion gap determination [facility] Office Visiton 10-31-2024 Follow-up visit [id number] Joe Call Bela 1945 F Date Provider Department Center 10/31/2024 [id number] BOYD MARILUZ Bruno Family History Problem Relation Age of Onset Coronary artery disease Other Diabetes Other Polycystic kidney disease Other Family Status - Relation Status Age at Other Level of Service:17590 [place] OFFICE/OUTPATIENT ESTABLISHED MOD MDM 30 MIN Normal [facility] B-Type Natriuretic Peptideon 10-25-2024 Natriuretic peptide B (Bld) [Mass/Vol] 455.0 pg/mL High 5-100 [facility] Comment on above: Result Comment: PERF ORMED BY: [facility] [address] [place] [address] PATHOLOGIST PAPER MACHINE OPERATOR MAY HYDE M.D. Performed By: #### G LULS #### Point of Care testing , Basic Metabolic Panelon 10-12 Anion gap [Moles/Vol] 13.0 mmol/L Normal 6.0-15.0 [facility] Comment on above: Performed By: #### G LULS #### Point of Care testing , Calcium [Mass/Vol] 8.6 mg/dL Normal 8.6-10.3 [facility] Comment on above: Performed By: #### G LULS #### Point of Care testing , Chloride [Moles/Vol] 101 mmol/L Normal 98-107 [facility] Comment on above: Performed By: #### G LULS #### Point of Care testing , CO2 [Moles/Vol] 23.8 mmol/L Normal 21.0-31.0 [facility] Comment on above: Performed By: #### G LULS #### Point of Care testing , Creatinine [Mass/Vol] 1.31 mg/dL High 0.60-1.20 [facility] Comment on above: Performed By: #### G LULS #### Point of Care testing , Creatinine Clr Calc Pharmacy 46.58 Normal [facility] Comment on above: Result Comment: PERF ORMED BY: [facility] [place] [address] PATHOLOGIST PAPER MACHINE OPERATOR MAY HYDE M.D. Performed By: #### G LULS #### Point of Care testing , Estimated GFR 41.704 mL/Min Normal [facility] Comment on above: Performed By: #### G LULS #### Point of Care testing , Glucose [Mass/Vol] 232 mg/dL High 70-100 [facility] Comment on above: Result Comment: [facility] Glucose Reference Range is dependent on time and content of last meal. Glucose of more than 200 mg/dL in a nonstressed, ambulatory subject supports the diagnosis of Diabetes Mellitus. ADA recommended reference range Performed By: #### G LULS #### Point of Care testing , Potassium [Moles/Vol] 4.8 mmol/L Normal 3.5-5.1 [facility] Comment on above: Performed By: #### G LULS #### Point of Care testing , Sodium [Moles/Vol] 133 mmol/L Low 136-145 [facility] Comment on above: Performed By: #### G LULS #### Point of Care testing , Urea nitrogen [Mass/Vol] 39 mg/dL High 7-25 [facility] Comment on above: Performed By: #### G LULS #### Point of Care testing , Basophils Auto (Bld) [#/Vol] Ordered By: Dnaiele Jane on 10-25-2024 Basophils (Bld) [#/Vol] Automated basophil count 0.0-0.2 [facility] Basophils/100 WBC Auto (Bld) Ordered By: Daniele Jane on 10-25-2024 Basophils/100 WBC (Bld) Automated basophil % . [facility] COVID CepheidOrdered By: Trino Jane on 10-25-2024 SARS-CoV-2 (COVID-19) Ab IA Ql COVID Cepheid Abnormal Negative [facility] Comment on above: This is a duplicate [...] or Cepheid Disclaimer revoked sooner. PERFORMED BY: [facility] [place] [address] PATHOLOGIST PAPER MACHINE OPERATOR MAY HYDE M.D. Normal [facility] Comment on above: Performed By: #### C OVID19 FLU RSV, CEPHEID POS #### [facility] [address] [place] [address] [facility] Calcium [Mass/volume] in Ser um or PlasmaOrdered By: Daniele Jane on 10-25-2024 Calcium [Mass/Vol] Calcium [Mass/volume ] in Serum or Plasma 8.6-10.3 [facility] Carbon dioxide, total [Moles /volume] in Serum or PlasmaOrdered By: Daniele Jane on 10-25-2024 CO2 [Moles/Vol] Carbon dioxide, tota l [Moles/volume] in Serum or Plasma 21.0-31.0 [facility] Cepheid COVID PCR Positiveon 10-25-2024 SARS-CoV-2 (COVID-19) RNA FERN+probe Ql (Unsp spec) Positive Critically abnormal Negative [facility] Comment on above: Result Comment: This is a duplicate Cepheid Xpert Xpress CoV-2/Flu/RSV Plus RNA by RT-PCR result to be used for statistical tracking purpose only. PERFORMED BY: [place] [address] PATHOLOGIST PAPER MACHINE OPERATOR MAY HYDE M.D. Performed By: #### C OVID19 FLU RSV, CEPHEID POS #### [address] [address] [place] Chloride [Moles/volume] in S oziel or PlasmaOrdered By: Daniele Jane on 10-25-2024 Chloride [Moles/Vol] Chloride [Moles/vol ume] in Serum or Plasma 98-107 [facility] Complete Blood Count Auto Di ffon 10-25-2024 Basophils (Bld) [#/Vol] 0.1 10*3/uL Normal 0.0-0.2 [facility] Comment on above: Result Comment: PERF ORMED BY: [address] [place] [id number] PATHOLOGIST PAPER MACHINE OPERATOR MAY HYDE M.D. Performed By: #### G LULS #### Point of Care testing , Basophils/100 WBC (Bld) 0.9 % Normal . [facility] Comment on above: Performed By: #### G LULS #### Point of Care testing , Eosinophils (Bld) [#/Vol] 0.1 10*3/uL Normal 0.0-0.45 [facility] Comment on above: Performed By: #### G LULS #### Point of Care testing , Eosinophils/100 WBC (Bld) 1.5 % Normal . [facility] Comment on above: Performed By: #### G LULS #### Point of Care testing , Erythrocyte distribution width (RBC) [Ratio] 15.3 % Normal 11.9-15.3 [facility] Comment on above: Performed By: #### G LULS #### Point of Care testing , Hematocrit (Bld) [Volume fraction] 36.2 % Normal 34.0-46.4 [facility] Comment on above: Performed By: #### G LULS #### Point of Care testing , Hemoglobin (Bld) [Mass/Vol] 12.2 g/dL Normal 11.8-15.4 [facility] Comment on above: Performed By: #### G LULS #### Point of Care testing , Lymphocytes (Bld) [#/Vol] 0.8 10*3/uL Low 1.00-4.8 [facility] Comment on above: Performed By: #### G LULS #### Point of Care testing , Lymphocytes/100 WBC (Bld) 9.8 % Normal . [facility] Comment on above: Performed By: #### G LULS #### Point of Care testing , MCH (RBC) [Entitic mass] 29.5 pg Normal 24.7-34.3 [facility] Comment on above: Performed By: #### G LULS #### Point of Care testing , MCV (RBC) [Entitic vol] 87.6 fL Normal 80-100 [facility] Comment on above: Performed By: #### G LULS #### Point of Care testing , Mean Corpuscular HGB Conc 33.7 g/dL Normal 32.0-35.0 [facility] Comment on above: Performed By: #### G LULS #### Point of Care testing , Monocytes (Bld) [#/Vol] 0.8 10*3/uL Normal 0.0-0.8 [facility] Comment on above: Performed By: #### G LULS #### Point of Care testing , Monocytes/100 WBC (Bld) 25.33 % High 0.00-20.00 [facility] Comment on above: Result Comment: For adults in ED, MDW > 20.0 may be associated with a higher risk of sepsis during the first 12 hrs of hospital admission Performed By: #### G LULS #### Point of Care testing , Monocytes/100 WBC (Bld) 10.7 % Normal . [facility] Comment on above: Performed By: #### G LULS #### Point of Care testing , Neutrophils (Bld) [#/Vol] 6.1 10*3/uL Normal 1.8-7.7 [facility] Comment on above: Performed By: #### G LULS #### Point of Care testing , Neutrophils/100 WBC (Bld) 77.1 % Normal . [facility] Comment on above: Performed By: #### G LULS #### Point of Care testing , NRBC% 0.1 /100{WBC} Normal 0-0.5 [facility] Comment on above: Performed By: #### G LULS #### Point of Care testing , Platelet mean volume (Bld) [Entitic vol] 9.0 fL Normal 6.3-10.7 [facility] Comment on above: Performed By: #### G LULS #### Point of Care testing , Platelets (Bld) [#/Vol] 142 10*3/uL Low 150-450 [facility] Comment on above: Performed By: #### G LULS #### Point of Care testing , RBC (Bld) [#/Vol] 4.13 10*6/uL Normal 3.60-5.00 [facility] Comment on above: Performed By: #### G LULS #### Point of Care testing , WBC (Bld) [#/Vol] 7.9 10*3/uL Normal 3.8-11.6 [facility] Comment on above: Performed By: #### G LULS #### Point of Care testing , Creatinine [Mass/volume] in Serum or PlasmaOrdered By: Daniele Jane on 10-25-2024 Creatinine [Mass/Vol] Creatinine [Mass/v olume] in Serum or Plasma High 0.60-1.20 [facility] ECG 12 lead ECGon 10-25-2024 ECG 12 lead ECG [facility] [place] [address] Electrocardiograph Report Signed Patient: Joe Call MR#: [id number] 0 : 1945 Acct:[id number] Age/Sex: 79 / F ADM Date: 10/25/24 Loc: ER Room: Type: [facility] ER Attending Dr: Ordering [...] sinus arrhythmia Confirmed by Daniele Jane DO ([id number]) on 10/25/2024 2:01:48 PM Referred By: Electronically Signed By: Daniele Jane DO Transcribed By: MUS Signed By Daniele Jane DO 1401 Normal [facility] Eosinophils Auto (Bld) [#/Vo l]Ordered By: Daniele Jane on 10-25-2024 Eosinophils (Bld) [#/Vol] Automated eosinophil count 0.0-0.45 [facility] Eosinophils/100 WBC Auto (Bl d)Ordered By: Daniele Jane on 10-25-2024 Eosinophils/100 WBC (Bld) Automated eosinophil % . [facility] Erythrocyte distribution wid th Auto (RBC) [Ratio]Ordered By: Daniele Jane on 10-25-2024 Erythrocyte distribution width (RBC) [Ratio] Erythrocyte distribution width [Ratio] by Automated count 11.9-15.3 [facility] Glucose [Mass/volume] in Ser um or PlasmaOrdered By: Daniele Jane on 10-25-2024 Glucose [Mass/Vol] Glucose [Mass/volume ] in Serum or Plasma High 70-100 [facility] Comment on above: ADA recommended refe rence rangeRandom Glucose Reference Range is dependent on time and content of last meal. Glucose of more than 200 mg/dL in a nonstressed, ambulatory subject supports the diagnosis of Diabetes Mellitus. Hematocrit Auto (Bld) [Volum e fraction]Ordered By: Daniele Jane on 10-25-2024 Hematocrit (Bld) [Volume fraction] Hematocrit [Volume Fraction] of Blood by Automated count 34.0-46.4 [facility] Hemoglobin [Mass/volume] in BloodOrdered By: Daniele Jane on 10-25-2024 Hemoglobin (Bld) [Mass/Vol] Hemoglobin [Mass/volume] in Blood 11.8-15.4 [facility] INR in Platelet poor plasma by Coagulation assayOrdered By: Daniele Jane on 10-25-2024 INR Coag (PPP) [Relative time] INR in Platelet poor plasma by Coagulation assay [facility] Comment on above: INR Therapeutic Rang e [...] erythrocytes in Blood by Automated coun 3.8-11.6 [facility] Lymphocytes Auto (Bld) [#/Vo l]Ordered By: Daniele Jane on 10-25-2024 Lymphocytes (Bld) [#/Vol] Lymphocytes [#/volume] in Blood by Automated count Low 1.00-4.8 [facility] Lymphocytes/100 WBC Auto (Bl d)Ordered By: Daniele Jane on 10-25-2024 Lymphocytes/100 WBC (Bld) Lymphocytes/100 leukocytes in Blood by Automated count . [facility] MCH Auto (RBC) [Entitic mass ]Ordered By: Daniele Jane on 10-25-2024 MCH (RBC) [Entitic mass] MCH [Entitic mass] by Automated count 24.7-34.3 [facility] MCHC Auto (RBC) [Mass/Vol]Or dered By: Daniele Jane on 10-25-2024 MCHC (RBC) [Mass/Vol] MCHC [Mass/volume] by Automated count 32.0-35.0 [facility] MCV Auto (RBC) [Entitic vol] Ordered By: Daniele Jane on 10-25-2024 MCV (RBC) [Entitic vol] MCV [Entitic volume] by Automated count 80-100 [facility] Monocyte distribution width [Entitic volume] in Blood by AutomatedOrdered By: Daniele Jane on 10-25-2024 Monocyte distribution width Auto (Bld) [Entitic vol] Monocyte distribution width [Entitic volume] in Blood by Automated High 0.00-20.00 [facility] Comment on above: For adults in ED, MD W > 20.0 may be associated with a higher risk of sepsis during the first 12 hrs of hospital admission Monocytes Auto (Bld) [#/Vol] Ordered By: Daniele Jane on 10-25-2024 Monocytes (Bld) [#/Vol] Automated blood monocyte count 0.0-0.8 [facility] Monocytes/100 WBC Auto (Bld) Ordered By: Daniele Jane on 10-25-2024 Monocytes/100 WBC (Bld) Automated monocyte % . [facility] Natriuretic peptide B [Mass/ Vol]Ordered By: Daniele Jane on 10-25-2024 Natriuretic peptide B (Bld) [Mass/Vol] BNP ser/plas High 5-100 [facility] Neutrophils Auto (Bld) [#/Vo l]Ordered By: Daniele Jane on 10-25-2024 Neutrophils (Bld) [#/Vol] Neutrophils [#/volume] in Blood by Automated count 1.8-7.7 [facility] Neutrophils/100 WBC Auto (Bl d)Ordered By: Daniele Jane on 10-25-2024 Neutrophils/100 WBC (Bld) Automated neutrophil % . [facility] No Panel InformationOrdered By: Daniele Jane on 10-25-2024 Estimated GFR (CKD-EPI) 41.704 mL/Min [facility] Creatinine Clearance (Chem 46.58 [facility] Nucleated erythrocytes [Pres ence] in Blood by Automated countOrdered By: Daniele Jane on 10-25-2024 Nucleated RBC Auto Ql (Bld) Nucleated erythrocytes [Presence] in Blood by Automated count 0-0.5 [facility] Partial Thromboplastin Timeo n 10-25-2024 aPTT Coag (Bld) [Time] 28.6 s Normal 25.1-36.5 Th [facility] Comment on above: Result Comment: A he matocrit value greater than 55% may lead to inaccurate results in coagulation testing. Patients having hematocrit values >55% require a special collection tube for coagulation studies. Please contact the laboratory at [phone] for redraw instructions. PERFORMED BY: [facility] [place] [address] [place] [address] PATHOLOGIST PAPER MACHINE OPERATOR MAY HYDE M.D. Performed By: #### G LUMARLEN #### Point of Care testing , Platelet mean volume Auto (B ld) [Entitic vol]Ordered By: Daniele Jane on 10-25-2024 Platelet mean volume (Bld) [Entitic vol] Platelet mean volume [Entitic volume] in Blood by Automated count 6.3-10.7 [facility] Platelets Auto (Bld) [#/Vol] Ordered By: Daniele Jane on 10-25-2024 Platelets (Bld) [#/Vol] Platelets [#/volume] in Blood by Automated count Low 150-450 [facility] Potassium [Moles/volume] in Serum or PlasmaOrdered By: Daniele Jane on 10-25-2024 Potassium [Moles/Vol] Potassium [Moles/v olume] in Serum or Plasma 3.5-5.1 [facility] Prothrombin Time INRon 10-25 INR Coag (PPP) [Relative time] 1.2 {INR} Normal [facility] Comment on above: Result Comment: [...] (PPP) [Time] 13.5 s High 9.0-12.9 [facility] Comment on above: Result Comment: A he matocrit value greater than 55% may lead to inaccurate results in coagulation testing. Patients having hematocrit values >55% require a special collection tube for coagulation studies. Please contact the laboratory at [phone] for redraw instructions. Performed By: #### G LULS #### Point of Care testing , Prothrombin time (PT)Ordered By: Daniele Jane on 10-25-2024 PT Coag (PPP) [Time] Prothrombin time (PT) High 9.0- 12.9 [facility] Comment on above: A hematocrit value g reater than 55% may lead to inaccurate results in coagulation testing. Patients having hematocrit values >55% require a special collection tube for coagulation studies. Please contact the laboratory at [phone] for redraw instructions. RBC Auto (Bld) [#/Vol]Ordere d By: Daniele Jane on 10-25-2024 RBC (Bld) [#/Vol] Erythrocytes [#/volu me] in Blood by Automated count 3.60-5.00 [facility] Respiratory specimen influen za A virus, influenza B virus, respiratory syncytical virOrdered By: Daniele Jane on 10-25-2024 SARS-CoV-2 (COVID-19) RNA FERN+probe Ql (Unsp spec) Respiratory specimen influenza A virus, influenza B virus, respiratory syncytical vir [facility] SARS-CoV-2 (COVID-19) RNA FERN+probe Ql (Unsp spec) Respiratory specimen influenza A virus, influenza B virus, respiratory syncytical vir [facility] Serum or plasma anion gap de terminationOrdered By: Daniele Jane on 10-25-2024 Anion gap [Moles/Vol] Serum or plasma an ion gap determination 6.0-15.0 [facility] Sodium [Moles/volume] in Ser um or PlasmaOrdered By: Daniele Jane on 10-25-2024 Sodium [Moles/Vol] Sodium [Moles/volume ] in Serum or Plasma Low 136-145 [facility] Troponin I High Sensitivityo n 10-25-2024 Troponin I High Sensitivity 14.6 pg/mL Normal 0.0-15.0 [facility] Comment on above: Result Comment: PERF ORMED BY: [facility] [facility] [place] [address] [address] PATHOLOGIST PAPER MACHINE OPERATOR MAY HYDE M.D. Performed By: #### G LULS #### Point of Care testing , Troponin I.cardiac [Mass/vol ume] in Serum or Plasma by Detection limit <= 0.01 ng/Ordered By: Daniele Jane on 10-25-2024 Troponin I.cardiac DL <= 0.01 ng/mL [Mass/Vol] Troponin I.cardiac [Mass/volume] in Serum or Plasma by Detection limit <= 0.01 ng/ 0.0-15.0 [facility] Urea nitrogen [Mass/volume] in Serum or PlasmaOrdered By: Daniele Jane on 10-25-2024 Urea nitrogen [Mass/Vol] Urea nitrogen [Mass/volume] in Serum or Plasma High 7-25 [facility] WBC Auto (Bld) [#/Vol]Ordere d By: Daniele Jane on 10-25-2024 WBC (Bld) [#/Vol] Leukocytes [#/volume ] in Blood by Automated count 3.8-11.6 [facility] XR chest 1V portableon 10-25 XR chest 1V portable [facility] Main [place] [address] [place] [address] XRay Report Signed Patient: Joe Call MR#: [id number] 0 : 1945 Acct:[id number] Age/Sex: 79 / F ADM Date: 10/25/24 Loc: ER Room: Type: [facility] ER Attending Dr: Copies to: Daniele [...] Jarred Randolph M.D.10/25/2024 7:35 AM Dictation Location: [place] [address] Transcribed By: [facility] 10/25/24 0735 Dictated By: Jarred Randolph DO 10/25/24 0734 Signed By: 10/25/24 0735 Normal [facility] aPTT in Platelet poor plasma by Coagulation assayOrdered By: Daniele Jane on 10-25-2024 aPTT Coag (PPP) [Time] Activated partial thromboplastin time (aPTT) in platelet poor plasma by coagulation a 25.1-36.5 [facility] Comment on above: A hematocrit value g reater than 55% may lead to inaccurate results in coagulation testing. Patients having hematocrit values >55% require a special collection tube for coagulation studies. Please contact the laboratory at [phone] for redraw instructions. Appearance of UrineOrdered B y: Zhang Norwood on 10-22-2024 Appearance (U) Urine appearance Abnormal [facility] Bacteria [Presence] in Urine by AutomatedOrdered By: Zhang Norwood on 10-22-2024 Bacteria Auto Ql (U) Bacteria [Presence] in Urine by Automated None Seen [facility] Bilirubin Test strip Ql (U)O rdered By: Zhang Norwood on 10-22-2024 Bilirubin Ql (U) Bilirubin.total [Presence] in Urine by Test strip Negative [facility] Calcium oxalate crystals [Pr esence] in Urine by Computer assisted methodOrdered By: Zhang Norwood on 10-22-2024 Calcium oxalate crystals Computer assisted Ql (U) Calcium oxalate crystals [Presence] in Urine by Computer assisted method [facility] Color Auto (U)Ordered By: Renetta Norwood on 10-22-2024 Color (U) Color of Urine by Auto Yellow [facility] Dipstick and Microscopicon 1 12-23-2023 Appearance (U) Cloudy Critically abnormal Clear [facility] Comment on above: Order Comment: Name Collection Type:: Peacock Catheter Performed By: #### M G, BMP #### [facility] [address] [place] [address] [place] Bacteria,Urine None Seen Normal None Seen [facility] Comment on above: Order Comment: Name Collection Type:: Peacock Catheter Performed By: #### M G, BMP #### [facility] [address] [place] [address] [place] Bilirubin,Urine Negative Normal Negative [facility] Comment on above: Order Comment: Name Collection Type:: Peacock Catheter Performed By: #### M G, BMP #### [facility] [address] [place] [address] [place] Calcium Oxalate Crystals,Urine Rare Normal [facility] Comment on above: Order Comment: Name Collection Type:: Peacock Catheter Performed By: #### M G, BMP #### [facility] [address] [place] [address] [place] Color (U) Yellow Normal Yellow [facility] Comment on above: Order Comment: Name Collection Type:: Peacock Catheter Performed By: #### M G, BMP #### [facility] [address] [place] [address] [place] Glucose Ql (U) 30 mg/dL High Normal [facility] Comment on above: Order Comment: Name Collection Type:: Peacock Catheter Performed By: #### M G, BMP #### [facility] [address] [place] [address] [place] Hyaline Casts,Urine 0 [LPF] Normal 0-8 [facility] Comment on above: Order Comment: Name Collection Type:: Peacock Catheter Performed By: #### M G, BMP #### [facility] [address] [place] [address] [place] Ketones Ql (U) Negative Normal Negative [facility] Comment on above: Order Comment: Name Collection Type:: Peacock Catheter Performed By: #### M G, BMP #### [place] [id number] [place] Leukocyte esterase Test strip Ql (U) 1+ High Negative [facility] Comment on above: Order Comment: Name Collection Type:: Peacock Catheter Performed By: #### M G, BMP #### [place] [address] [place] Mucus,Urine Rare Normal [facility] Comment on above: Order Comment: Name Collection Type:: Peacock Catheter Result Comment: PERF ORMED BY: [place] [address] PATHOLOGIST PAPER MACHINE OPERATOR MAY HYDE M.D. Performed By: #### M G, BMP #### [place] [id number] [place] Nitrite,Urine Negative Normal Negative [facility] Comment on above: Order Comment: Name Collection Type:: Peacock Catheter Performed By: #### M G, BMP #### [place] [id number] [place] Occult Blood,Urine 3+ High Negative [facility] Comment on above: Order Comment: Name Collection Type:: Peacock Catheter Result Comment: PERF ORMED BY: [place] [address] PATHOLOGIST PAPER MACHINE OPERATOR MAY HYDE M.D. Performed By: #### M G, BMP #### [place] [id number] [place] pH (U) 5.5 [pH] Normal 5.0-9.0 [facility] Comment on above: Order Comment: Name Collection Type:: Peacock Catheter Performed By: #### M G, BMP #### [address] Protein (U) [Mass/Vol] 300 mg/dL High Negative Th e [facility] Comment on above: Order Comment: Name Collection Type:: Peacock Catheter Performed By: #### M G, BMP #### [address] RBC,Urine Innumerable High 0-4 [facility] Comment on above: Order Comment: Name Collection Type:: Peacock Catheter Performed By: #### M G, BMP #### [address] Specificy [place],Urine 1.019 Normal 1.001-1.030 [facility] Comment on above: Order Comment: Name Collection Type:: Peacock Catheter Performed By: #### M G, BMP #### [place] [address] [place] Squamous Epithelial Cell,Urine 1 [HPF] Normal 0-2 [facility] Comment on above: Order Comment: Name Collection Type:: Peacock Catheter Performed By: #### M G, BMP #### [address] Urobilinogen,Urine Normal Normal Normal [facility] Comment on above: Order Comment: Name Collection Type:: Peacock Catheter Performed By: #### M G, BMP #### [place] [address] [place] WBC,Urine 10 [HPF] High 0-4 [facility] Comment on above: Order Comment: Name Collection Type:: Peacock Catheter Performed By: #### M G, BMP #### [place] [address] [place] Epithelial cells.squamous [# /area] in Urine sediment by Automated countOrdered By: Zhang Norwood on 10-22-2024 Epithelial cells.squamous Auto (Urine sed) [#/Area] Epithelial cells.squamous [#/area] in Urine sediment by Automated count 0-2 [facility] Erythrocytes [#/area] in Uri ne sediment by Automated countOrdered By: Zhang Norwood on 10-22-2024 RBC Auto (Urine sed) [#/Area] Erythrocytes [#/area] in Urine sediment by Automated count High 0-4 [facility] Glucose [Mass/volume] in Uri ne by Test stripOrdered By: Zhang Norwood on 10-22-2024 Glucose Test strip (U) [Mass/Vol] Glucose [Mass/volume] in Urine by Test strip High Normal [facility] Hemoglobin Test strip Ql (U) Ordered By: Zhang Norwood on 10-22-2024 Hemoglobin Ql (U) Hemoglobin [Presence ] in Urine by Test strip [facility] Negative [facility] Hyaline casts [#/area] in Ur ine sediment by Automated countOrdered By: Zhang Norwood on 10-22-2024 Hyaline casts Auto (Urine sed) [#/Area] Hyaline casts [#/area] in Urine sediment by Automated count 0-8 [facility] Ketones Test strip Ql (U)Ord ered By: Zhang Norwood on 10-22-2024 Ketones Ql (U) Ketones [Presence] i n Urine by Test strip Negative [facility] Leukocyte esterase [Presence ] in Urine by Test stripOrdered By: Zhang Norwood on 10-22-2024 Leukocyte esterase Test strip Ql (U) Leukocyte esterase [Presence] in Urine by Test strip [facility] Negative [facility] Leukocytes [#/area] in Urine sediment by Automated countOrdered By: Zhang Norwood on 10-22-2024 WBC Auto (Urine sed) [#/Area] Leukocytes [#/area] in Urine sediment by Automated count High 0-4 [facility] Mucus [Presence] in Urine by AutomatedOrdered By: Zhang Norwood on 10-22-2024 Mucus Auto Ql (U) Mucus [Presence] in Urine by Automated [facility] Nitrite Test strip Ql (U)Ord ered By: Zhang Norwood on 10-22-2024 Nitrite Ql (U) Nitrite [Presence] i n Urine by Test strip Negative [facility] Protein Test strip (U) [Mass /Vol]Ordered By: Zhang Norwood on 10-22-2024 Protein (U) [Mass/Vol] Protein [Mass/vol ume] in Urine by Test strip High Negative [facility] Specific gravity Test strip (U) [Rel density]Ordered By: Zhang Cuco on 10-22-2024 Specific gravity (U) [Rel density] Specific gravity of Urine by Test strip 1.001-1.030 [facility] Urine Cultureon 10-22-2024 Bacteria identified Cx Nom (U) 15,000 colonies/ml mixed bacterial skin contaminants 2 Days PERFORMED BY: [place] [address] PATHOLOGIST PAPER MACHINE OPERATOR MAY HYDE M.D. Normal [facility] Comment on above: Performed By: #### M G, BMP #### [address] Urine cultureOrdered By: Hortensia Norwood on 10-22-2024 Bacteria identified Cx Nom (U) Urine culture [facility] Bacteria identified Cx Nom (U) Urine culture [facility] Urobilinogen Test strip (U) [Mass/Vol]Ordered By: Zhangnai Norwood on 10-22-2024 Urobilinogen (U) [Mass/Vol] Urobilinogen [Mass/volume] in Urine by Test strip Normal [facility] pH Test strip (U)Ordered By: Zhang Norwood on 10-22-2024 pH (U) pH of Urine by Test strip 5.0-9.0 [facility] A1C with Estimated Average Bela hansen 10-20-2024 Glucose [Mass/Vol] 292 mg/dL Normal [facility] Comment on above: Result Comment: PERF ORMED BY: [place] [address] PATHOLOGIST PAPER MACHINE OPERATOR MAY HYDE M.D. Performed By: #### A 1C WT eA #### [address] [address] [facility] HbA1c (Bld) [Mass fraction] 11.8 % High 4.3-5.6 [facility] Comment on above: Result Comment: Incr eased risk for diabetes: 5.7 - 6.4 diabetes: >6.4 glycemic control for adults with diabetes: <7.0 Performed By: #### A 1C [facility] #### [address] Basic Metabolic Panelon 12-0 Anion gap [Moles/Vol] Not performed Normal 6.0-15.0 [facility] Comment on above: Performed By: #### Vandana Cramer, BMP #### [address] Calcium [Mass/Vol] 8.7 mg/dL Normal 8.6-10.3 [facility] Comment on above: Performed By: #### Vandana Cramer, BMP #### [address] Chloride [Moles/Vol] 97 mmol/L Low 98-107 [facility] Comment on above: Performed By: #### Vandana Cramer, BMP #### [address] CO2 [Moles/Vol] 26.0 mmol/L Normal 21.0-31.0 [facility] Comment on above: Performed By: #### Vandana Cramer, BMP #### [address] Creatinine [Mass/Vol] 3.06 mg/dL High 0.60-1.20 [facility] Comment on above: Performed By: #### Vandana Cramer, BMP #### [address] Creatinine Clr Calc Pharmacy 18.79 Normal [facility] Comment on above: Performed By: #### Vandana Cramer, BMP #### [address] Estimated GFR 15.067 mL/Min Normal [facility] Comment on above: Performed By: #### Vandana Cramer, BMP #### [address] Glucose [Mass/Vol] 159 mg/dL Significant change up 70-100 [facility] Comment on above: Result Comment: [place] Glucose Reference Range is dependent on time and content of last meal. Glucose of more than 200 mg/dL in a nonstressed, ambulatory subject supports the diagnosis of Diabetes Mellitus. ADA recommended reference range Performed By: #### M Bela, BMP #### [facility] [address] Potassium Normal 3.5-5.1 [facility] Comment on above: Result Comment: Spec imen hemolyzed, redraw requested Performed By: #### M Bela, BMP #### [facility] [address] Sodium Normal 136-145 [facility] Comment on above: Result Comment: Spec imen hemolyzed, redraw requested Performed By: #### Vandana Cramer, BMP #### [facility] [address] Urea nitrogen [Mass/Vol] 91 mg/dL High 7-25 [facility] Comment on above: Performed By: #### Vandana Cramer, BMP #### [facility] [address] Blood estimated average gluc ose determination by estimation from glycated hemoglobinOrdered By: Kavin Escobar on 10-20-2024 Average glucose Estimated from glycated hemoglobin (Bld) [Mass/Vol] Glucose mean value [Mass/volume] in Blood Estimated from glycated hemoglobin [facility] Calcium [Mass/volume] in Ser um or PlasmaOrdered By: Mauri Chavira on 10-20-2024 Calcium [Mass/Vol] Calcium [Mass/volume ] in Serum or Plasma 8.6-10.3 [facility] Carbon dioxide, total [Moles /volume] in Serum or PlasmaOrdered By: Mauri Chavira on 10-20-2024 CO2 [Moles/Vol] Carbon dioxide, tota l [Moles/volume] in Serum or Plasma 21.0-31.0 [facility] Chloride [Moles/volume] in S oziel or PlasmaOrdered By: Mauri Chavira on 10-20-2024 Chloride [Moles/Vol] Chloride [Moles/vol ume] in Serum or Plasma Low 98-107 [facility] Creatinine [Mass/volume] in Serum or PlasmaOrdered By: Mauri Chavira on 10-20-2024 Creatinine [Mass/Vol] Creatinine [Mass/v olume] in Serum or Plasma High 0.60-1.20 [facility] Glucose Glucometer (BldC) [M ass/Vol]Ordered By: Kavin Escobar on 10-20-2024 Glucose [Mass/Vol] Capillary blood gluc ose measurement by glucometer (mass/volume) [facility] Comment on above: Random Glucose Refer ence Range is dependent on time and content of last meal. Glucose of more than 200 mg/dL in a nonstressed, ambulatory subject supports the diagnosis of Diabetes Mellitus. Glucose Poct Glucometerson 1 12-21-2023 Glucose [Mass/Vol] 209 mg/dL Normal [facility] Comment on above: Result Comment: [place] om Glucose Reference Range is dependent on time and content of last meal. Glucose of more than 200 mg/dL in a nonstressed, ambulatory subject supports the diagnosis of Diabetes Mellitus. PERFORMED BY: [place] [address] PATHOLOGIST PAPER MACHINE OPERATOR MAY HYDE M.D. Performed By: #### C OVID19 FLU RSV, CEPHEID POS #### [facility] [address] [place] [address] Glucose [Mass/Vol] 164 mg/dL Normal [facility] Comment on above: Result Comment: [place] om Glucose Reference Range is dependent on time and content of last meal. Glucose of more than 200 mg/dL in a nonstressed, ambulatory subject supports the diagnosis of Diabetes Mellitus. PERFORMED BY: [facility] [place] [address] [place] [address] PATHOLOGIST PAPER MACHINE OPERATOR MAY HYDE M.D. Performed By: #### M G, BMP #### [facility] [address] [place] [address] Glucose [Mass/volume] in Ser um or PlasmaOrdered By: Mauri Chavira on 10-20-2024 Glucose [Mass/Vol] Glucose [Mass/volume ] in Serum or Plasma Invalid Interpretation Code 70-100 [facility] Comment on above: Delta: [id number] on [id number] recommended reference rangeRandom Glucose Reference Range is dependent on time and content of last meal. Glucose of more than 200 mg/dL in a nonstressed, ambulatory subject supports the diagnosis of Diabetes Mellitus. Hemoglobin A1c/Hemoglobin.to vinicio in BloodOrdered By: Kavin Escobar on 10-20-2024 HbA1c (Bld) [Mass fraction] Hemoglobin A1c percentage High 4.3-5.6 [facility] Comment on above: Increased risk for d iabetes: 5.7 - 6.4diabetes: >6.4glycemic control for adults with diabetes: <7.0 Magnesiumon 10-20-2024 Magnesium Normal 1.9-2.7 [facility] Comment on above: Result Comment: Spec imen hemolyzed, redraw requested PERFORMED BY: [place] [address] PATHOLOGIST PAPER MACHINE OPERATOR MAY HYDE M.D. Performed By: #### M G, BMP #### [address] Magnesium [Mass/volume] in S oziel or PlasmaOrdered By: Mauri Chavira on 10-20-2024 Magnesium [Mass/Vol] Magnesium [Mass/vol ume] in Serum or Plasma 1.9-2.7 [facility] No Panel InformationOrdered By: Mauri Chavira on 10-20-2024 Estimated GFR (CKD-EPI) 15.067 mL/Min [facility] Creatinine Clearance (Chem 18.79 [facility] Potassium [Moles/volume] in Serum or PlasmaOrdered By: Mauri Chavira on 10-20-2024 Potassium [Moles/Vol] Potassium [Moles/v olume] in Serum or Plasma 3.5-5.1 [facility] Redraw Magnesiumon Magnesium [Mass/Vol] 1.9 mg/dL Normal 1.9-2.7 [facility] Comment on above: Result Comment: PERF ORMED BY: [place] [address] PATHOLOGIST PAPER MACHINE OPERATOR MAY HYDE M.D. Performed By: #### G LULS #### Point of Care testing , Redraw Magnesium Normal 1.9-2.7 [facility] Comment on above: Result Comment: Spec imen hemolyzed, redraw requested PERFORMED BY: [place] [address] PATHOLOGIST PAPER MACHINE OPERATOR MAY HYDE M.D. Performed By: #### C OVID19 FLU RSV, CEPHEID POS #### [address] Redraw Potassiumon 4 Potassium [Moles/Vol] 4.0 mmol/L Normal 3.5-5.1 [facility] Comment on above: Performed By: #### G LULS #### Point of Care testing , Redraw Potassium Normal 3.5-5.1 [facility] Comment on above: Result Comment: Spec imen hemolyzed, redraw requested Performed By: #### C OVID19 FLU RSV, CEPHEID POS #### [address] Redraw Sodiumon 10-20-2024 Sodium [Moles/Vol] 134 mmol/L Low 136-145 [facility] Comment on above: Performed By: #### C OVID19 FLU RSV, CEPHEID POS #### [address] Serum or plasma anion gap de terminationOrdered By: Mauri Chavira on 10-20-2024 Anion gap [Moles/Vol] Serum or plasma an ion gap determination [facility] Comment on above: Test not performed Sodium [Moles/volume] in Ser um or PlasmaOrdered By: Mauri Chavira on 10-20-2024 Sodium [Moles/Vol] Sodium [Moles/volume ] in Serum or Plasma Low 136-145 [facility] Urea nitrogen [Mass/volume] in Serum or PlasmaOrdered By: Mauri Chavira on 10-20-2024 Urea nitrogen [Mass/Vol] Urea nitrogen [Mass/volume] in Serum or Plasma High 7-25 [facility] Basic Metabolic Panelon 12-0 Anion gap [Moles/Vol] 14.7 mmol/L Normal 6.0-15.0 [facility] Comment on above: Performed By: #### Vandana G, BMP #### [facility] [address] Calcium [Mass/Vol] 9.1 mg/dL Normal 8.6-10.3 [facility] Comment on above: Performed By: #### Vandana G, BMP #### [facility] [address] [place] [address] [place] Chloride [Moles/Vol] 95 mmol/L Low 98-107 [facility] Comment on above: Performed By: #### Vandana G, BMP #### [facility] [address] CO2 [Moles/Vol] 28.6 mmol/L Normal 21.0-31.0 [facility] Comment on above: Performed By: #### Vandana G, BMP #### [facility] [address] [place] [address] [place] Creatinine [Mass/Vol] 2.71 mg/dL Significan t change up 0.60-1.20 [facility] Comment on above: Performed By: #### Vandana G, BMP #### [facility] [address] [place] [address] [place] Creatinine Clr Calc Pharmacy 21.49 Normal [facility] Comment on above: Performed By: #### Vandana G, BMP #### [facility] [address] [place] [id number] [place] Estimated GFR 17.432 mL/Min Normal [facility] Comment on above: Performed By: #### Vandana G, BMP #### [facility] [address] [place] [id number] [facility] Glucose [Mass/Vol] 288 mg/dL High 70-100 [facility] Comment on above: Result Comment: [facility] Glucose Reference Range is dependent on time and content of last meal. Glucose of more than 200 mg/dL in a nonstressed, ambulatory subject supports the diagnosis of Diabetes Mellitus. ADA recommended reference range Performed By: #### M G, BMP #### [address] Potassium [Moles/Vol] 4.3 mmol/L Normal 3.5-5.1 [facility] Comment on above: Performed By: #### M G, BMP #### [address] Sodium [Moles/Vol] 134 mmol/L Low 136-145 [facility] Comment on above: Performed By: #### M G, BMP #### [address] Urea nitrogen [Mass/Vol] 77 mg/dL High 7-25 [facility] Comment on above: Performed By: #### M G, BMP #### [address] Glucose Poct Glucometerson 1 12-20-2023 Glucose [Mass/Vol] 222 mg/dL Normal [facility] Comment on above: Result Comment: [facility] Glucose Reference Range is dependent on time and content of last meal. Glucose of more than 200 mg/dL in a nonstressed, ambulatory subject supports the diagnosis of Diabetes Mellitus. PERFORMED BY: [place] [address] PATHOLOGIST PAPER MACHINE OPERATOR MAY HYDE M.D. Performed By: #### G LULS #### Point of Care testing , Glucose [Mass/Vol] 306 mg/dL Normal [facility] Comment on above: Result Comment: [facility] Glucose Reference Range is dependent on time and content of last meal. Glucose of more than 200 mg/dL in a nonstressed, ambulatory subject supports the diagnosis of Diabetes Mellitus. PERFORMED BY: [place] [address] PATHOLOGIST PAPER MACHINE OPERATOR MAY HYDE M.D. Performed By: #### C OVID19 FLU RSV, CEPHEID POS #### [facility] [address] Glucose [Mass/Vol] 342 mg/dL Normal [facility] Comment on above: Result Comment: [place] om Glucose Reference Range is dependent on time and content of last meal. Glucose of more than 200 mg/dL in a nonstressed, ambulatory subject supports the diagnosis of Diabetes Mellitus. PERFORMED BY: [place] [address] PATHOLOGIST PAPER MACHINE OPERATOR MAY HYDE M.D. Performed By: #### Vandana Cramer, BMP #### [address] Glucose [Mass/Vol] 267 mg/dL Normal [facility] Comment on above: Result Comment: [place] Glucose Reference Range is dependent on time and content of last meal. Glucose of more than 200 mg/dL in a nonstressed, ambulatory subject supports the diagnosis of Diabetes Mellitus. PERFORMED BY: [place] [address] PATHOLOGIST PAPER MACHINE OPERATOR MAY HYDE M.D. Performed By: #### Vandana Cramer, BMP #### [address] Magnesiumon 10-19-2024 Magnesium [Mass/Vol] 2.0 mg/dL Normal 1.9-2.7 [facility] Comment on above: Result Comment: PERF ORMED BY: [place] [address] PATHOLOGIST PAPER MACHINE OPERATOR MAY HYDE M.D. Performed By: #### Vandana Cramer, BMP #### [address] Basic Metabolic Panelon 12- Anion gap [Moles/Vol] 15.4 mmol/L High 6.0-15.0 Th e [facility] Comment on above: Order Comment: REY PARKER NOTIFIED. SMB 0442. Performed By: #### Vandana Cramer, KAREN, TSH3, T4F #### [place] [address] [place] Calcium [Mass/Vol] 9.5 mg/dL Normal 8.6-10.3 [facility] Comment on above: Order Comment: REY PARKER NOTIFIED. SMB 0442. Performed By: #### KAREN Hansen, TSH3, T4F #### [facility] [address] Chloride [Moles/Vol] 97 mmol/L Low 98-107 [facility] Comment on above: Order Comment: REY PARKER NOTIFIED. SMB 0442. Performed By: #### Vandana Crmaer, KAREN, TSH3, T4F #### [facility] [address] CO2 [Moles/Vol] 29.7 mmol/L Normal 21.0-31.0 [facility] Comment on above: Order Comment: REY PARKER NOTIFIED. SMB 0442. Performed By: #### KAREN Hansen, TSH3, T4F #### [facility] [address] Creatinine [Mass/Vol] 1.81 mg/dL High 0.60-1.20 [facility] Comment on above: Order Comment: REY PARKER NOTIFIED. SMB 0442. Performed By: #### KAREN Hansen, TSH3, T4F #### [facility] [address] [place], [place] [id number] [facility] Creatinine Clr Calc Pharmacy 32.95 Normal [facility] Comment on above: Order Comment: REY PARKER NOTIFIED. SMB 0442. Performed By: #### Vandana Cramer, KAREN, TSH3, T4F #### [facility] [address] Estimated GFR 28.294 mL/Min Normal [facility] Comment on above: Order Comment: REY PARKER NOTIFIED. SMB 0442. Performed By: #### Vandana Cramer, BMP, TSH3, T4F #### [facility] [address] [place] [id number] [facility] Glucose [Mass/Vol] 220 mg/dL High 70-100 [facility] Comment on above: Order Comment: REY PARKER NOTIFIED. SMB 0442. Result Comment: [facility] Glucose Reference Range is dependent on time and content of last meal. Glucose of more than 200 mg/dL in a nonstressed, ambulatory subject supports the diagnosis of Diabetes Mellitus. ADA recommended reference range Performed By: #### M G, BMP, TSH3, T4F #### [facility] [address] Potassium [Moles/Vol] 4.1 mmol/L Normal 3.5-5.1 [facility] Comment on above: Order Comment: REY PARKER NOTIFIED. SMB 0442. Performed By: #### M G, BMP, TSH3, T4F #### [address] Sodium [Moles/Vol] 138 mmol/L Normal 136-145 [facility] Comment on above: Order Comment: REY PARKER NOTIFIED. SMB 0442. Performed By: #### M G, BMP, TSH3, T4F #### [address] Urea nitrogen [Mass/Vol] 66 mg/dL High 7-25 [facility] Comment on above: Order Comment: REY PARKER NOTIFIED. SMB 0442. Performed By: #### M G, BMP, TSH3, T4F #### [address] Free T4 (Free Thyroxine)on 1 12-19-2023 Free T4 [Mass/Vol] 1.26 ng/dL High 0.61-1.12 [facility] Comment on above: Order Comment: REY PARKER NOTIFIED. SMB 0442. Performed By: #### C OVID19 FLU RSV, CEPHEID POS #### [address] Glucose Poct Glucometerson 12-19-2023 Glucose [Mass/Vol] 329 mg/dL Normal [facility] Comment on above: Result Comment: [place] [facility] Glucose Reference Range is dependent on time and content of last meal. Glucose of more than 200 mg/dL in a nonstressed, ambulatory subject supports the diagnosis of Diabetes Mellitus. PERFORMED BY: [place] [address] PATHOLOGIST PAPER MACHINE OPERATOR MAY HYDE M.D. Performed By: #### Vandana Cramer, BMP #### [place] [address] [place] Glucose [Mass/Vol] 210 mg/dL Normal [facility] Comment on above: Result Comment: [place] [facility] Glucose Reference Range is dependent on time and content of last meal. Glucose of more than 200 mg/dL in a nonstressed, ambulatory subject supports the diagnosis of Diabetes Mellitus. PERFORMED BY: [place] [address] PATHOLOGIST PAPER MACHINE OPERATOR MAY HYDE M.D. Performed By: #### C OVID19 FLU RSV, CEPHEID POS #### [place] [address] [place] Glucose [Mass/Vol] 251 mg/dL Normal [facility] Comment on above: Result Comment: [place] [facility] Glucose Reference Range is dependent on time and content of last meal. Glucose of more than 200 mg/dL in a nonstressed, ambulatory subject supports the diagnosis of Diabetes Mellitus. PERFORMED BY: [place] [address] PATHOLOGIST PAPER MACHINE OPERATOR MAY HYDE M.D. Performed By: #### C OVID19 FLU RSV, CEPHEID POS #### [place] [address] [place] Glucose [Mass/Vol] 207 mg/dL Normal [facility] Comment on above: Result Comment: [place] [facility] Glucose Reference Range is dependent on time and content of last meal. Glucose of more than 200 mg/dL in a nonstressed, ambulatory subject supports the diagnosis of Diabetes Mellitus. PERFORMED BY: [place] [address] PATHOLOGIST PAPER MACHINE OPERATOR MAY HYDE M.D. Performed By: #### Vandana Cramer, BMP #### [address] Glucose [Mass/Vol] 188 mg/dL Normal [facility] Comment on above: Result Comment: [facility] Glucose Reference Range is dependent on time and content of last meal. Glucose of more than 200 mg/dL in a nonstressed, ambulatory subject supports the diagnosis of Diabetes Mellitus. PERFORMED BY: [place] [address] PATHOLOGIST PAPER MACHINE OPERATOR MAY HYDE M.D. Performed By: #### Vandana G, BMP #### [address] Magnesiumon 10-18-2024 Magnesium [Mass/Vol] 2.1 mg/dL Normal 1.9-2.7 [facility] Comment on above: Order Comment: REY PARKER NOTIFIED. SMB 0442. Performed By: #### C OVID19 FLU RSV, CEPHEID POS #### [address] Serum or plasma thyroperoxid ase antibody assay (units/volume)Ordered By: Mauri Chavira on 10-18-2024 TPO Ab Qn Serum or plasma thyroperoxidase antibody assay (units/volume) 0-34 [facility] Comment on above: Performed at: CB - [facility] [address] [id number] Director: Dimitri Landis PhD, Phone: [phone] Thyroid Peroxidase Antibodie son 10-18-2024 Thyroid Peroxidase Antibodies <9 Normal 0-34 [facility] Comment on above: Order Comment: REY PARKER NOTIFIED. SMB 0442. Result Comment: Perf ormed at: CB - [facility] [place] [id number] [employer] Supervisor: Dimitri Landis PhD, Phone: [phone] PERFORMED BY: [place] [address] PATHOLOGIST PAPER MACHINE OPERATOR MAY HYDE M.D. Performed By: #### M G, BMP #### [address] Thyroid Stimulating Hormoneo n 10-18-2024 TSH Qn 1.86 m[IU]/L Normal 0.45-5.33 [facility] Comment on above: Order Comment: REY PARKER NOTIFIED. SMB 9773. Result Comment: PERF ORMED BY: [facility] [address] [facility] [place] [address] PATHOLOGIST PAPER MACHINE OPERATOR MAY HYDE M.D. Performed By: #### C OVID19 FLU RSV, CEPHEID POS #### [facility] [address] Thyrotropin [Units/volume] i n Serum or PlasmaOrdered By: Mauri Chavira on 10-18-2024 TSH Qn Thyrotropin [Units/volume] in Serum or Plasma 0.45-5.33 [facility] Thyroxine (T4) free [Mass/vo lume] in Serum or PlasmaOrdered By: Mauri Chavira on 10-18-2024 Free T4 [Mass/Vol] Thyroxine (T4) free [Mass/volume] in Serum or Plasma High 0.61-1.12 [facility] Alanine aminotransferase [En zymatic activity/volume] in Serum or PlasmaOrdered By: Mauri Chavira on 10-17-2024 ALT [Catalytic activity/Vol] Alanine aminotransferase [Enzymatic activity/volume] in Serum or Plasma 7-52 [facility] Albumin [Mass/volume] in Ser um or Plasma by Bromocresol green (BCG) dye binding methoOrdered By: Mauri Chavira on 10-17-2024 Albumin BCG dye [Mass/Vol] Albumin [Mass/volume] in Serum or Plasma by Bromocresol green (BCG) dye binding metho 3.5-5.7 [facility] Alkaline phosphatase [Enzyma tic activity/volume] in Serum or PlasmaOrdered By: Mauri Chavira on 10-17-2024 ALP [Catalytic activity/Vol] Alkaline phosphatase [Enzymatic activity/volume] in Serum or Plasma 34-104 [facility] Aspartate aminotransferase [ Enzymatic activity/volume] in Serum or PlasmaOrdered By: Mauri Chavira on 10-17-2024 AST [Catalytic activity/Vol] Aspartate aminotransferase [Enzymatic activity/volume] in Serum or Plasma 13-39 [facility] Basophils Auto (Bld) [#/Vol] Ordered By: Mauri Chavira on 10-17-2024 Basophils (Bld) [#/Vol] Automated basophil count 0.0-0.2 [facility] Basophils/100 WBC Auto (Bld) Ordered By: Mauri Chavira on 10-17-2024 Basophils/100 WBC (Bld) Automated basophil % . [facility] Bilirubin.total [Mass/volume ] in Serum or PlasmaOrdered By: Mauri Chavira on 10-17-2024 Bilirubin [Mass/Vol] Bilirubin.total [Mass/volume] in Serum or Plasma 0.3-1.0 [facility] Complete Blood Count Auto Di ffon 10-17-2024 Basophils (Bld) [#/Vol] 0.1 10*3/uL Normal 0.0-0.2 [facility] Comment on above: Result Comment: PERF ORMED BY: [place] [address] PATHOLOGIST PAPER MACHINE OPERATOR MAY HYDE M.D. Performed By: #### C OVID19 FLU RSV, CEPHEID POS #### [address] Basophils/100 WBC (Bld) 0.8 % Normal . [facility] Comment on above: Performed By: #### C OVID19 FLU RSV, CEPHEID POS #### [place] [address] [place] Eosinophils (Bld) [#/Vol] 0.1 10*3/uL Normal 0.0-0.45 [facility] Comment on above: Performed By: #### C OVID19 FLU RSV, CEPHEID POS #### [place] [address] [place] Eosinophils/100 WBC (Bld) 0.7 % Normal . [facility] Comment on above: Performed By: #### C OVID19 FLU RSV, CEPHEID POS #### [place] [address] [place] Erythrocyte distribution width (RBC) [Ratio] 15.4 % High 11.9-15.3 [facility] Comment on above: Performed By: #### C OVID19 FLU RSV, CEPHEID POS #### [address] Hematocrit (Bld) [Volume fraction] 40.4 % Normal 34.0-46.4 [facility] Comment on above: Performed By: #### C OVID19 FLU RSV, CEPHEID POS #### [address] Hemoglobin (Bld) [Mass/Vol] 13.3 g/dL Normal 11.8-15.4 [facility] Comment on above: Performed By: #### C OVID19 FLU RSV, CEPHEID POS #### [address] Lymphocytes (Bld) [#/Vol] 1.4 10*3/uL Normal 1.00-4.8 [facility] Comment on above: Performed By: #### C OVID19 FLU RSV, CEPHEID POS #### [address] Lymphocytes/100 WBC (Bld) 15.2 % Normal . [facility] Comment on above: Performed By: #### C OVID19 FLU RSV, CEPHEID POS #### [address] MCH (RBC) [Entitic mass] 29.3 pg Normal 24.7-34.3 [facility] Comment on above: Performed By: #### C OVID19 FLU RSV, CEPHEID POS #### [address] MCV (RBC) [Entitic vol] 88.8 fL Normal 80-100 [facility] Comment on above: Performed By: #### C OVID19 FLU RSV, CEPHEID POS #### [address] Mean Corpuscular HGB Conc 33.0 g/dL Normal 32.0-35.0 [facility] Comment on above: Performed By: #### C OVID19 FLU RSV, CEPHEID POS #### [address] Monocytes (Bld) [#/Vol] 0.7 10*3/uL Normal 0.0-0.8 [facility] Comment on above: Performed By: #### C OVID19 FLU RSV, CEPHEID POS #### [address] Monocytes/100 WBC (Bld) 7.2 % Normal . [facility] Comment on above: Performed By: #### C OVID19 FLU RSV, CEPHEID POS #### [address] Neutrophils (Bld) [#/Vol] 7.0 10*3/uL Normal 1.8-7.7 [facility] Comment on above: Performed By: #### C OVID19 FLU RSV, CEPHEID POS #### [address] Neutrophils/100 WBC (Bld) 76.1 % Normal . [facility] Comment on above: Performed By: #### C OVID19 FLU RSV, CEPHEID POS #### [address] NRBC% 0.0 /100{WBC} Normal 0-0.5 [facility] Comment on above: Performed By: #### C OVID19 FLU RSV, CEPHEID POS #### [address] Platelet mean volume (Bld) [Entitic vol] 9.5 fL Normal 6.3-10.7 [facility] Comment on above: Performed By: #### C OVID19 FLU RSV, CEPHEID POS #### [address] Platelets (Bld) [#/Vol] 183 10*3/uL Normal 150-450 [facility] Comment on above: Performed By: #### C OVID19 FLU RSV, CEPHEID POS #### [address] RBC (Bld) [#/Vol] 4.55 10*6/uL Normal 3.60-5.00 [facility] Comment on above: Performed By: #### C OVID19 FLU RSV, CEPHEID POS #### [address] WBC (Bld) [#/Vol] 9.2 10*3/uL Normal 3.8-11.6 [facility] Comment on above: Performed By: #### C OVID19 FLU RSV, CEPHEID POS #### [address] Comprehensive Metabolic Pane daniele 10-17-2024 Albumin [Mass/Vol] 3.5 g/dL Normal 3.5-5.7 [facility] Comment on above: Performed By: #### C OVID19 FLU RSV, CEPHEID POS #### [address] Albumin/Globulin [Mass ratio] 0.9 {ratio} Normal [facility] Comment on above: Performed By: #### C OVID19 FLU RSV, CEPHEID POS #### [address] ALP [Catalytic activity/Vol] 99 U/L Normal 34-104 [facility] Comment on above: Performed By: #### C OVID19 FLU RSV, CEPHEID POS #### [address] ALT [Catalytic activity/Vol] 42 U/L Normal 7-52 [facility] Comment on above: Performed By: #### C OVID19 FLU RSV, CEPHEID POS #### [address] Anion gap [Moles/Vol] 14.7 mmol/L Normal 6.0-15.0 Th e [facility] Comment on above: Performed By: #### C OVID19 FLU RSV, CEPHEID POS #### [address] AST [Catalytic activity/Vol] 35 U/L Normal 13-39 [facility] Comment on above: Performed By: #### C OVID19 FLU RSV, CEPHEID POS #### [address] Bilirubin [Mass/Vol] 0.6 mg/dL Normal 0.3-1.0 [facility] Comment on above: Performed By: #### C OVID19 FLU RSV, CEPHEID POS #### [address] Calcium [Mass/Vol] 9.6 mg/dL Normal 8.6-10.3 [facility] Comment on above: Performed By: #### C OVID19 FLU RSV, CEPHEID POS #### [address] Chloride [Moles/Vol] 99 mmol/L Normal 98-107 [facility] Comment on above: Performed By: #### C OVID19 FLU RSV, CEPHEID POS #### [address] CO2 [Moles/Vol] 25.3 mmol/L Normal 21.0-31.0 [facility] Comment on above: Performed By: #### C OVID19 FLU RSV, CEPHEID POS #### [address] Creatinine [Mass/Vol] 1.99 mg/dL High 0.60-1.20 [facility] Comment on above: Performed By: #### C OVID19 FLU RSV, CEPHEID POS #### [address] Creatinine Clr Calc Pharmacy 29.98 Normal [facility] Comment on above: Performed By: #### C OVID19 FLU RSV, CEPHEID POS #### [address] Estimated GFR 25.252 mL/Min Normal [facility] Comment on above: Performed By: #### C OVID19 FLU RSV, CEPHEID POS #### [address] Globulin (S) [Mass/Vol] 3.9 g/dL Normal [facility] Comment on above: Performed By: #### C OVID19 FLU RSV, CEPHEID POS #### [address] Glucose [Mass/Vol] 228 mg/dL High 70-100 [facility] Comment on above: Result Comment: [facility] Glucose Reference Range is dependent on time and content of last meal. Glucose of more than 200 mg/dL in a nonstressed, ambulatory subject supports the diagnosis of Diabetes Mellitus. ADA recommended reference range Performed By: #### C OVID19 FLU RSV, CEPHEID POS #### [address] Potassium [Moles/Vol] 5.0 mmol/L Normal 3.5-5.1 [facility] Comment on above: Performed By: #### C OVID19 FLU RSV, CEPHEID POS #### [address] Protein [Mass/Vol] 7.4 g/dL Normal 6.4-8.9 [facility] Comment on above: Performed By: #### C OVID19 FLU RSV, CEPHEID POS #### [address] Sodium [Moles/Vol] 134 mmol/L Low 136-145 [facility] Comment on above: Performed By: #### C OVID19 FLU RSV, CEPHEID POS #### [address] Urea nitrogen [Mass/Vol] 67 mg/dL High 7-25 [facility] Comment on above: Performed By: #### C OVID19 FLU RSV, CEPHEID POS #### [place] [address] [place] Eosinophils Auto (Bld) [#/Vo l]Ordered By: Mauri Chavira on 10-17-2024 Eosinophils (Bld) [#/Vol] Automated eosinophil count 0.0-0.45 [facility] Eosinophils/100 WBC Auto (Bl d)Ordered By: Mauri Chavira on 10-17-2024 Eosinophils/100 WBC (Bld) Automated eosinophil % . [facility] Erythrocyte distribution wid th Auto (RBC) [Ratio]Ordered By: Mauri Chavira on 10-17-2024 Erythrocyte distribution width (RBC) [Ratio] Erythrocyte distribution width [Ratio] by Automated count High 11.9-15.3 [facility] Globulin Calc (S) [Mass/Vol] Ordered By: Mauri Chavira on 10-17-2024 Globulin (S) [Mass/Vol] Serum globulin measurement by calculation (mass/volume) [facility] Glucose Poct Glucometerson 1 12-18-2023 Glucose [Mass/Vol] 245 mg/dL Normal [facility] Comment on above: Result Comment: [facility] Glucose Reference Range is dependent on time and content of last meal. Glucose of more than 200 mg/dL in a nonstressed, ambulatory subject supports the diagnosis of Diabetes Mellitus. PERFORMED BY: [place] [address] PATHOLOGIST PAPER MACHINE OPERATOR MAY HYDE M.D. Performed By: #### C OVID19 FLU RSV, CEPHEID POS #### [facility] [address] [place] [address] Glucose [Mass/Vol] 335 mg/dL Normal [facility] Comment on above: Result Comment: [facility] Glucose Reference Range is dependent on time and content of last meal. Glucose of more than 200 mg/dL in a nonstressed, ambulatory subject supports the diagnosis of Diabetes Mellitus. PERFORMED BY: [place] [address] PATHOLOGIST PAPER MACHINE OPERATOR MAY HYDE M.D. Performed By: #### M G, BMP #### [address] Glucose [Mass/Vol] 324 mg/dL Normal [facility] Comment on above: Result Comment: [facility] Glucose Reference Range is dependent on time and content of last meal. Glucose of more than 200 mg/dL in a nonstressed, ambulatory subject supports the diagnosis of Diabetes Mellitus. PERFORMED BY: [facility] [address] [place] [address] PATHOLOGIST PAPER MACHINE OPERATOR MAY HYDE M.D. Performed By: #### G MICK #### Point of Care testing , Glucose [Mass/Vol] 253 mg/dL Normal [facility] Comment on above: Result Comment: [place] Glucose Reference Range is dependent on time and content of last meal. Glucose of more than 200 mg/dL in a nonstressed, ambulatory subject supports the diagnosis of Diabetes Mellitus. PERFORMED BY: [facility] [address] [place] [address] PATHOLOGIST PAPER MACHINE OPERATOR MAY HYDE M.D. Performed By: #### M Bela, BMP #### [address] Hematocrit Auto (Bld) [Volum e fraction]Ordered By: Mauri Chavira on 10-17-2024 Hematocrit (Bld) [Volume fraction] Hematocrit [Volume Fraction] of Blood by Automated count 34.0-46.4 [facility] Hemoglobin [Mass/volume] in BloodOrdered By: Mauri Chavira on 10-17-2024 Hemoglobin (Bld) [Mass/Vol] Hemoglobin [Mass/volume] in Blood 11.8-15.4 [facility] Leukocytes [#/volume] correc gali for nucleated erythrocytes in Blood by Automated counOrdered By: Mauri Chavira on 10-17-2024 WBC corrected for nucl RBC Auto (Bld) [#/Vol] Leukocytes [#/volume] corrected for nucleated erythrocytes in Blood by Automated coun 3.8-11.6 [facility] Lymphocytes Auto (Bld) [#/Vo l]Ordered By: Mauri Chavira on 10-17-2024 Lymphocytes (Bld) [#/Vol] Lymphocytes [#/volume] in Blood by Automated count 1.00-4.8 [facility] Lymphocytes/100 WBC Auto (Bl d)Ordered By: Mauri Chavira on 10-17-2024 Lymphocytes/100 WBC (Bld) Lymphocytes/100 leukocytes in Blood by Automated count . [facility] MCH Auto (RBC) [Entitic mass ]Ordered By: Mauri Chavira on 10-17-2024 MCH (RBC) [Entitic mass] MCH [Entitic mass] by Automated count 24.7-34.3 [facility] MCHC Auto (RBC) [Mass/Vol]Or dered By: Mauri Chavira on 10-17-2024 MCHC (RBC) [Mass/Vol] MCHC [Mass/volume] by Automated count 32.0-35.0 [facility] MCV Auto (RBC) [Entitic vol] Ordered By: Mauri Chavira on 10-17-2024 MCV (RBC) [Entitic vol] MCV [Entitic volume] by Automated count 80-100 [facility] Magnesiumon 10-17-2024 Magnesium [Mass/Vol] 1.6 mg/dL Low 1.9-2.7 [facility] Comment on above: Result Comment: PERF ORMED BY: [facility] [address] [facility] [place] [address] PATHOLOGIST PAPER MACHINE OPERATOR MAY HYDE M.D. Performed By: #### C OVID19 FLU RSV, CEPHEID POS #### [facility] [address] Monocytes Auto (Bld) [#/Vol] Ordered By: Mauri Chavira on 10-17-2024 Monocytes (Bld) [#/Vol] Automated blood monocyte count 0.0-0.8 [facility] Monocytes/100 WBC Auto (Bld) Ordered By: Mauri Chavira on 10-17-2024 Monocytes/100 WBC (Bld) Automated monocyte % . [facility] Neutrophils Auto (Bld) [#/Vo l]Ordered By: Mauri Chavira on 10-17-2024 Neutrophils (Bld) [#/Vol] Neutrophils [#/volume] in Blood by Automated count 1.8-7.7 [facility] Neutrophils/100 WBC Auto (Bl d)Ordered By: Mauri Chavira on 10-17-2024 Neutrophils/100 WBC (Bld) Automated neutrophil % . [facility] Nucleated erythrocytes [Pres ence] in Blood by Automated countOrdered By: Mauri Chavira on 10-17-2024 Nucleated RBC Auto Ql (Bld) Nucleated erythrocytes [Presence] in Blood by Automated count 0-0.5 [facility] Platelet mean volume Auto (B ld) [Entitic vol]Ordered By: Mauri Chavira on 10-17-2024 Platelet mean volume (Bld) [Entitic vol] Platelet mean volume [Entitic volume] in Blood by Automated count 6.3-10.7 [facility] Platelets Auto (Bld) [#/Vol] Ordered By: Mauri Chavira on 10-17-2024 Platelets (Bld) [#/Vol] Platelets [#/volume] in Blood by Automated count 150-450 [facility] Protein [Mass/volume] in Ser um or PlasmaOrdered By: Mauri Chavira on 10-17-2024 Protein [Mass/Vol] Protein [Mass/volume ] in Serum or Plasma 6.4-8.9 [facility] RBC Auto (Bld) [#/Vol]Ordere d By: Mauri Chavira on 10-17-2024 RBC (Bld) [#/Vol] Erythrocytes [#/volu me] in Blood by Automated count 3.60-5.00 [facility] Serum or plasma albumin/glob ulin mass ratioOrdered By: Mauri Chavira on 10-17-2024 Albumin/Globulin [Mass ratio] Serum or plasma albumin/globulin mass ratio [facility] WBC Auto (Bld) [#/Vol]Ordere d By: Mauri Chavira on 10-17-2024 WBC (Bld) [#/Vol] Leukocytes [#/volume ] in Blood by Automated count 3.8-11.6 [facility] B-Type Natriuretic Peptideon 10-16-2024 Natriuretic peptide B (Bld) [Mass/Vol] 547.0 pg/mL High 5-100 [facility] Comment on above: Result Comment: PERF ORMED BY: [place] [address] PATHOLOGIST PAPER MACHINE OPERATOR MAY HYDE M.D. Performed By: #### A 1C [facility] #### [address] Basic Metabolic Panelon 12-0 Anion gap [Moles/Vol] 18.1 mmol/L High 6.0-15.0 Th e [facility] Comment on above: Performed By: #### Vandana Cramre, BMP #### [address] Calcium [Mass/Vol] 9.7 mg/dL Significant change down 8.6-10.3 [facility] Comment on above: Performed By: #### Vandana Cramer, BMP #### [address] Chloride [Moles/Vol] 100 mmol/L Normal 98-107 [facility] Comment on above: Performed By: #### Vandana Cramer, BMP #### [address] CO2 [Moles/Vol] 23.3 mmol/L Normal 21.0-31.0 [facility] Comment on above: Performed By: #### Vandana Cramer, BMP #### [address] Creatinine [Mass/Vol] 2.14 mg/dL High 0.60-1.20 [facility] Comment on above: Performed By: #### Vandana Cramer, BMP #### [address] Creatinine Clr Calc Pharmacy 27.88 Normal [facility] Comment on above: Result Comment: PERF ORMED BY: [place] [address] PATHOLOGIST PAPER MACHINE OPERATOR MAY HYDE M.D. Performed By: #### Vandana Cramer, BMP #### [address] Estimated GFR 23.142 mL/Min Normal [facility] Comment on above: Performed By: #### Vandana G, BMP #### [address] Glucose [Mass/Vol] 301 mg/dL High 70-100 [facility] Comment on above: Result Comment: [place] om Glucose Reference Range is dependent on time and content of last meal. Glucose of more than 200 mg/dL in a nonstressed, ambulatory subject supports the diagnosis of Diabetes Mellitus. ADA recommended reference range Performed By: #### Vandana Cramer, BMP #### [facility] [address] Potassium [Moles/Vol] 6.4 mmol/L Off scale high 3.5-5.1 [facility] Comment on above: Result Comment: Resu lts called at 1909 on 10/16/24 Critical Result Called to and read back by: ISMA AVILA/RENETTA at: 10/16/2024 19:04:24 by:[id number] Performed By: #### Vandana Cramer, BMP #### [address] Sodium [Moles/Vol] 135 mmol/L Low 136-145 [facility] Comment on above: Performed By: #### Vandana Cramer, BMP #### [address] Urea nitrogen [Mass/Vol] 74 mg/dL High 7-25 [facility] Comment on above: Performed By: #### Vandana Cramer, BMP #### [address] Anion gap [Moles/Vol] 13.8 mmol/L Normal 6.0-15.0 Th e [facility] Comment on above: Performed By: #### A 1C [facility] e[facility] #### [place] [address] [place] Calcium [Mass/Vol] 8.1 mg/dL Low 8.6-10.3 [facility] Comment on above: Performed By: #### A 1C [facility] #### [place] [id number] [place] Chloride [Moles/Vol] 104 mmol/L Normal 98-107 [facility] Comment on above: Performed By: #### A 1C [facility] e[facility] #### [facility] [address] [place] [id number] [place] CO2 [Moles/Vol] 21.5 mmol/L Normal 21.0-31.0 [facility] Comment on above: Performed By: #### A 1C [facility] e[facility] #### [facility] [address] [place] [address] [place] Creatinine [Mass/Vol] 2.25 mg/dL High 0.60-1.20 [facility] Comment on above: Performed By: #### A 1C [facility] e[facility] #### [facility] [address] [place] [address] [place] Creatinine Clr Calc Pharmacy 5.50 Normal [facility] Comment on above: Performed By: #### A 1C [facility] eA #### [facility] [address] Estimated GFR 21.792 mL/Min Normal [facility] Comment on above: Performed By: #### A 1C [facility] #### [address] Glucose [Mass/Vol] 388 mg/dL High 70-100 [facility] Comment on above: Result Comment: [place] Glucose Reference Range is dependent on time and content of last meal. Glucose of more than 200 mg/dL in a nonstressed, ambulatory subject supports the diagnosis of Diabetes Mellitus. ADA recommended reference range Performed By: #### A 1C WT eA #### [address] Potassium [Moles/Vol] 6.3 mmol/L Off scale high 3.5-5.1 [facility] Comment on above: Result Comment: Crit ical Result Called to and read back by: LYNN KLINE at: 10/16/2024 14:01:43 by:[id number] Performed By: #### A 1C [facility] eA #### [facility] [address] [place] [address] [place] Sodium [Moles/Vol] 133 mmol/L Low 136-145 [facility] Comment on above: Performed By: #### A 1C [facility] eA #### [facility] [address] [place] [id number] [facility] Urea nitrogen [Mass/Vol] 73 mg/dL High 7-25 [facility] Comment on above: Performed By: #### A 1C [facility] e[facility] #### [facility] [address] Blood carbon dioxide, total measurement by calculation (moles/volume)Ordered By: Kavin Escobar on 10-16-2024 CO2 Calc (Bld) [Moles/Vol] Blood carbon dioxide, total measurement by calculation (moles/volume) Low 23-29 [facility] Chloride (Bld) [Moles/Vol]Or dered By: Kavin Escobar on 10-16-2024 Chloride [Moles/Vol] Whole blood chlorid e measurement 98-109 [facility] Complete Blood Count Auto Di ffon 10-16-2024 Basophils (Bld) [#/Vol] 0.1 10*3/uL Normal 0.0-0.2 [facility] Comment on above: Result Comment: PERF ORMED BY: [place] [address] PATHOLOGIST PAPER MACHINE OPERATOR MAY HYDE M.D. Performed By: #### A 1C [facility] #### [address] Basophils/100 WBC (Bld) 0.7 % Normal . [facility] Comment on above: Performed By: #### A [facility] e[facility] #### [address] Eosinophils (Bld) [#/Vol] 0.1 10*3/uL Normal 0.0-0.45 [facility] Comment on above: Performed By: #### A 1C WT eA #### [address] Eosinophils/100 WBC (Bld) 0.6 % Normal . [facility] Comment on above: Performed By: #### A 1C [facility] e[facility] #### [address] Erythrocyte distribution width (RBC) [Ratio] 15.2 % Normal 11.9-15.3 [facility] Comment on above: Performed By: #### A 1C [facility] e[facility] #### [address] Hematocrit (Bld) [Volume fraction] 35.5 % Normal 34.0-46.4 [facility] Comment on above: Performed By: #### A 1C [facility] e[facility] #### [address] Hemoglobin (Bld) [Mass/Vol] 11.6 g/dL Low 11.8-15.4 [facility] Comment on above: Performed By: #### A 1C [facility] #### [address] Lymphocytes (Bld) [#/Vol] 1.2 10*3/uL Normal 1.00-4.8 [facility] Comment on above: Performed By: #### A 1C [facility] #### [address] Lymphocytes/100 WBC (Bld) 12.5 % Normal . [facility] Comment on above: Performed By: #### A 1C [facility] #### [address] MCH (RBC) [Entitic mass] 29.0 pg Normal 24.7-34.3 [facility] Comment on above: Performed By: #### A 1C [facility] e[facility] #### [address] MCV (RBC) [Entitic vol] 89.1 fL Normal 80-100 [facility] Comment on above: Performed By: #### A 1C [facility] e[facility] #### [address] Mean Corpuscular HGB Conc 32.6 g/dL Normal 32.0-35.0 [facility] Comment on above: Performed By: #### A 1C [facility] eA #### [address] Monocytes (Bld) [#/Vol] 0.7 10*3/uL Normal 0.0-0.8 [facility] Comment on above: Performed By: #### A 1C WT eA #### [facility] [address] [place] [address] [place] Monocytes/100 WBC (Bld) 18.11 % Normal 0.00-20.00 [facility] Comment on above: Performed By: #### A 1C WT eA #### [facility] [address] [place] [address] [place] Monocytes/100 WBC (Bld) 6.8 % Normal . [facility] Comment on above: Performed By: #### A 1C [facility] e[facility] #### [facility] [address] [place] [address] [place] Neutrophils (Bld) [#/Vol] 8.0 10*3/uL High 1.8-7.7 [facility] Comment on above: Performed By: #### A 1C WT eA #### [facility] [address] [place] [address] [place] Neutrophils/100 WBC (Bld) 79.4 % Normal . [facility] Comment on above: Performed By: #### A 1C [facility] e[facility] #### [facility] [address] [place] [address] [place] NRBC% 0.1 /100{WBC} Normal 0-0.5 [facility] Comment on above: Performed By: #### A 1C [facility] e[facility] #### [facility] [address] [place] [address] [place] Platelet mean volume (Bld) [Entitic vol] 9.7 fL Normal 6.3-10.7 [facility] Comment on above: Performed By: #### A 1C WT eA #### [facility] [address] [place] [address] [place] Platelets (Bld) [#/Vol] 181 10*3/uL Normal 150-450 [facility] Comment on above: Performed By: #### A 1C WT eA #### [facility] [address] [place] [address] [place] RBC (Bld) [#/Vol] 3.98 10*6/uL Normal 3.60-5.00 [facility] Comment on above: Performed By: #### A 1C [facility] e[facility] #### [facility] [address] [place] [address] [facility] WBC (Bld) [#/Vol] 10.0 10*3/uL Normal 3.8-11.6 [facility] Comment on above: Performed By: #### A 1C [facility] e[facility] #### [facility] [address] [place] [address] [facility] Creatine Kinaseon 10-16-2024 CK [Catalytic activity/Vol] 37 U/L Normal 30 [facility] Comment on above: Performed By: #### A 1C [facility] e[facility] #### [facility] [address] [place] [address] [facility] Creatine kinase [Enzymatic a ctivity/volume] in Serum or PlasmaOrdered By: Jorge Luis Zavala on 10-16-2024 CK [Catalytic activity/Vol] Creatine kinase [Enzymatic activity/volume] in Serum or Plasma [facility] Creatinine (Bld) [Mass/Vol]O rdered By: Kavin Escobar on 10-16-2024 Creatinine [Mass/Vol] Whole blood creati nine measurement High 0.6-1.3 [facility] Comment on above: ER/ESD physician is notified/shown all ISTAT results.Critical values may be confirmed by laboratory testing ifdeemed necessary by ER attending doctor. ECG 12 lead ECGon 10-16-2024 ECG 12 lead ECG [facility] Main [place] [address] [place], [place] [id number] Electrocardiograph Report Signed Patient: Joe Call MR#: [id number] 0 : 1945 Acct:[id number] Age/Sex: 79 / F ADM Date: 10/16/24 Loc: Room: [address] [place] [address] Type: DIS IN Attending : Kavin Escobar [...] Signed By Fiona Moreno MD 1 12/24/23 151 Normal [facility] ECG 12 lead ECG [facility] Main [place] [id number] Electrocardiograph Report Signed Patient: Joe Call MR#: [id number] 0 : 1945 Acct:[id number] Age/Sex: 79 / F ADM Date: 10/16/24 Loc: Room: [address] [place] [address] Type: ADM IN Attending Dr: Mauri Chavira [...] By Jorge Luis Zavala DO 1926 Normal [facility] ECG 12 lead ECG [facility] Main [address] [address] Electrocardiograph Report Signed Patient: Joe Call MR#: [id number] 0 : 1945 Acct:[id number] Age/Sex: 79 / F ADM Date: 10/16/24 Loc: Room: [address] [place] [address] Type: ADM IN Attending Dr: Mauri Chavira [...] Jorge Luis Zavala DO 1926 Normal [facility] Glucose Glucometer (BldC) [M ass/Vol]Ordered By: Kavin Escobar on 10-16-2024 Glucose [Mass/Vol] Capillary blood gluc ose measurement by glucometer (mass/volume) High 70-105 [facility] Glucose Poct Glucometerson 1 12-17-2023 Glucose [Mass/Vol] 266 mg/dL Normal [facility] Comment on above: Result Comment: [facility] Glucose Reference Range is dependent on time and content of last meal. Glucose of more than 200 mg/dL in a nonstressed, ambulatory subject supports the diagnosis of Diabetes Mellitus. PERFORMED BY: [address] [place] [address] PATHOLOGIST PAPER MACHINE OPERATOR MAY HYDE M.D. Performed By: #### M Bela, BMP #### [address] Hemoglobin Calc (Bld) [Mass/ Vol]Ordered By: Kavin Escobar on 10-16-2024 Hemoglobin (Bld) [Mass/Vol] Blood hemoglobin measurement by calculation (mass/volume) 12.0-17.0 [facility] INR in Platelet poor plasma by Coagulation assayOrdered By: Jorge Luis Zavala on 10-16-2024 INR Coag (PPP) [Relative time] INR in Platelet poor plasma by Coagulation assay [facility] Comment on above: INR Therapeutic Rang e [...] Chloride [Moles/Vol] 104.0 mmol/L Normal 98-109 [facility] Comment on above: Performed By: #### E RBMP #### [address] Point of Care testing , CO2 [Moles/Vol] 22 mmol/L Low 23-29 [facility] Comment on above: Performed By: #### E RBMP #### [address] Point of Care testing , Creatinine [Mass/Vol] 2.3 mg/dL High 0.6-1.3 [facility] Comment on above: Result Comment: ER/E SD physician is notified/shown all ISTAT results. Critical values may be confirmed by laboratory testing if deemed necessary by ER attending doctor. Performed By: #### E RBMP #### [address] Point of Care testing , Glucose [Mass/Vol] 390 mg/dL High 70-105 [facility] Comment on above: Result Comment: PERF ORMED BY: [place] [address] PATHOLOGIST PAPER MACHINE OPERATOR MAY HYDE M.D. Performed By: #### E RBMP #### [address] Point of Care testing , Hemoglobin (Bld) [Mass/Vol] 12.2 g/dL Normal 12.0-17.0 [facility] Comment on above: Performed By: #### E RBMP #### [address] Point of Care testing , ISTAT Ionized Calcium 1.11 mol/L Low 1.12-1.32 [facility] Comment on above: Performed By: #### E RBMP #### [address] Point of Care testing , Potassium [Moles/Vol] 6.4 mmol/L Off scale high 3.5-4.9 [facility] Comment on above: Performed By: #### E RBMP #### [address] Point of Care testing , Sodium [Moles/Vol] 134 mmol/L Low 138-146 [facility] Comment on above: Performed By: #### E RBMP #### [address] Point of Care testing , Urea nitrogen [Mass/Vol] 69 mg/dL High 8-26 [facility] Comment on above: Performed By: #### E RBMP #### [address] Point of Care testing , ISTAT ER Chem8+ PanelOrdered By: Kavin Escobar on 10-16-2024 Hematocrit (Bld) [Volume fraction] 36.0 % Low 38.0-51.0 [facility] Comment on above: Performed By: #### E RBMP #### [address] Point of Care testing , Magnesiumon 10-16-2024 Magnesium [Mass/Vol] 1.4 mg/dL Low 1.9-2.7 [facility] Comment on above: Result Comment: PERF ORMED BY: [address] [address] PATHOLOGIST PAPER MACHINE OPERATOR MAY HYDE M.D. Performed By: #### A 1C [facility] e[facility] #### [facility] [address] [place] [address] [facility] Monocyte distribution width [Entitic volume] in Blood by AutomatedOrdered By: Jorge Luis Zavala on 10-16-2024 Monocyte distribution width Auto (Bld) [Entitic vol] Monocyte distribution width [Entitic volume] in Blood by Automated 0.00-20.00 [facility] Natriuretic peptide B [Mass/ Vol]Ordered By: Jorge Luis Zavala on 10-16-2024 Natriuretic peptide B (Bld) [Mass/Vol] BNP ser/plas High 5-100 [facility] Potassium (Bld) [Moles/Vol]O rdered By: Kavin Escobar on 10-16-2024 Potassium [Moles/Vol] Whole blood potass ium measurement Critically high 3.5-4.9 [facility] Prothrombin Time INRon 10-16 INR Coag (PPP) [Relative time] 2.6 {INR} Normal [facility] Comment on above: Result Comment: [...] heart valves: 3 - 4.5 PERFORMED BY: [address] [address] PATHOLOGIST PAPER MACHINE OPERATOR MAY HYDE M.D. Performed By: #### A 1C [facility] e[facility] #### [facility] [address] [place] [address] [facility] PT Coag (PPP) [Time] 28.9 s High 9.0-12.9 [facility] Comment on above: Result Comment: A he matocrit value greater than 55% may lead to inaccurate results in coagulation testing. Patients having hematocrit values >55% require a special collection tube for coagulation studies. Please contact the laboratory at [phone] for redraw instructions. Performed By: #### A 1C [facility] e[facility] #### [address] Prothrombin time (PT)Ordered By: Jorge Luis Zavala on 10-16-2024 PT Coag (PPP) [Time] Prothrombin time (PT) High 9.0- 12.9 [facility] Comment on above: A hematocrit value g reater than 55% may lead to inaccurate results in coagulation testing. Patients having hematocrit values >55% require a special collection tube for coagulation studies. Please contact the laboratory at [phone] for redraw instructions. Sodium (Bld) [Moles/Vol]Orde red By: Kavin Escobar on 10-16-2024 Sodium [Moles/Vol] Whole blood sodium measurement Low 138-146 [facility] Troponin I High Sensitivityo n 10-16-2024 Troponin I High Sensitivity 9.9 pg/mL Normal 0.0-15.0 [facility] Comment on above: Result Comment: PERF ORMED BY: [place] [address] PATHOLOGIST PAPER MACHINE OPERATOR MAY HYDE M.D. Performed By: #### A 1C [facility] #### [address] Troponin I.cardiac [Mass/vol ume] in Serum or Plasma by Detection limit <= 0.01 ng/Ordered By: Jorge Luis Zavala on 10-16-2024 Troponin I.cardiac DL <= 0.01 ng/mL [Mass/Vol] Troponin I.cardiac [Mass/volume] in Serum or Plasma by Detection limit <= 0.01 ng/ 0.0-15.0 [facility] Urea nitrogen (Bld) [Mass/Vo l]Ordered By: Kavin Escobar on 10-16-2024 Urea nitrogen [Mass/Vol] Blood urea nitrogen (BUN) measurement in whole blood (mass/volume) High 8-26 [facility] Whole blood ionized calcium measurement (moles/volume)Ordered By: Kavin Escobar on 10-16-2024 Calcium.ionized (Bld) [Moles/Vol] Whole blood ionized calcium measurement (moles/volume) Low 1.12-1.32 [facility] XR chest 1V portableon 10-16 XR chest 1V portable [facility] Main [place] [address] [place] [address] XRay Report Signed Patient: Joe Call MR#: [id number] 0 : 1945 Acct:[id number] Age/Sex: 79 / F ADM Date: 10/16/24 Loc: ER Room: Type: [facility] ER Attending Dr: Copies to: Jorge [...] Jarred Randolph M.D.10/16/2024 2:10 PM Dictation Location: [place] [address] Transcribed By: [facility] 10/16/24 1410 Dictated By: Jarred Randolph DO 10/16/24 1407 Signed By: 10/16/24 1410 Normal [facility] 37on 10-08-2024 37 *Cut lisinopril in h rae to 10mg daily. *Follow-up labs in 2 weeks. *Limit fluid intake to 64oz or 2 liters a day. Normal [facility] Office Visiton 10-08-2024 Follow-up visit [id number] Joe Call Bela 1945 F Date Provider Department Center 10/08/2024 Moris-YAMEL PANDYA Afsaneh Kiana Family History Problem Relation Age of Onset Coronary artery disease Other Diabetes Other Polycystic kidney disease Other Family Status - Relation Status Age at Other Level of Service:[address] [place] OFFICE/OUTPATIENT ESTABLISHED MOD MDM 30 MIN Reason for Visit and Comments: Congestive Heart Failure [127] Hypertension [249846] Atrial Fibrillation [80] Normal [facility] Estimated glomerular filtrat ion rate (GFR) non- Americanon 09-29-2024 GFR/1.73 sq M.predicted among non-blacks MDRD (S/P/Bld) [Vol rate/Area] Estimated glomerular filtration rate (GFR) non- Low >=60 mL/min/1.73 m 2 [facility] Laboratory - Chemistry and C hemistry - challengeon 09-29-2024 Calcium [Mass/Vol] 8.8 mg/dL 8.5-10.1 [facility] Chloride [Moles/Vol] 102 mmol/L 98-107 [facility] CO2 [Moles/Vol] 24.9 mmol/L 21.0-32.0 [facility] Creatinine [Mass/Vol] 1.92 mg/dL High 0.55-1.02 [facility] GFR/1.73 sq M.predicted MDRD (S/P/Bld) [Vol rate/Area] 31 mL/min/{1.73_m2} Low >=60 mL/min/1.73 m 2 [facility] Glucose [Mass/Vol] 387 mg/dL High 74-106 [facility] Potassium [Moles/Vol] 5.0 mmol/L 3.5-5.1 [facility] Sodium [Moles/Vol] 136 mmol/L 136-145 [facility] Urea nitrogen [Mass/Vol] 64.0 mg/dL High 7.0-18.0 [facility] Urea nitrogen/Creatinine [Mass ratio] 33.3 mg/mg [facility] Serum or plasma anion gap de terminationon 09-29-2024 Anion gap [Moles/Vol] Serum or plasma an ion gap determination [facility] 37on 09-03-2024 37 *Your kidney functio n worsened. Please hold your lasix for 2 days and resume on 09/06/24 and only take 40mg once a day in the morning. *Hold your lisinopril. *Have follow-up lab work in 1 week to recheck your kidney function. *Let cardiology know if you have any weight gain or worsening shortness of breath or worsening leg swelling. Normal [facility] Office Visiton 09-03-2024 Follow-up visit [id number] BassemJoe 1945 F Date Provider Department Center 09/03/2024 YAMEL OCAMPO Family History Problem Relation Age of Onset Coronary artery disease Other Diabetes Other Polycystic kidney disease Other Family Status - Relation Status Age at Other Level of Service:[address]80 [place] OFFICE/OUTPATIENT ESTABLISHED MOD MDM 30 MIN Reason for Visit and Comments: Congestive Heart Failure [127] Atrial Fibrillation [80] Hypertension [125821] Normal [facility] Office Visiton 08-20-2024 Follow-up visit [id number] Joe Call 1945 F Date Provider Department Center 08/20/2024 YAMEL OCAMPO Family History Problem Relation Age of Onset Coronary artery disease Other Diabetes Other Polycystic kidney disease Other Family Status - Relation Status Age at Other Level of Service:711[address] [place] OFFICE/OUTPATIENT ESTABLISHED MOD MDM 30 MIN Reason for Visit and Comments: Congestive Heart Failure [127] Normal [facility] Basophils Auto (Bld) [#/Vol] on 07-25-2024 Basophils (Bld) [#/Vol] 0.1 10 3/uL 0.0-0.1 [facility] Basophils/100 WBC Auto (Bld) on 07-25-2024 Basophils/100 WBC (Bld) 1.2 % 0.2-2.0 [facility] Eosinophils/100 WBC Auto (Bl d)on 07-25-2024 Eosinophils/100 WBC (Bld) 1.6 % 0.9-7.0 [facility] Erythrocyte distribution wid th Auto (RBC) [Ratio]on 07-25-2024 Erythrocyte distribution width (RBC) [Ratio] 13.7 % 11.0-15.0 [facility] Estimated glomerular filtrat ion rate (GFR) non- Americanon 07-25-2024 GFR/1.73 sq M.predicted among non-blacks MDRD (S/P/Bld) [Vol rate/Area] 47 mL/min/{1.73_m2} Low >=60 [facility] Globulin Calc (S) [Mass/Vol] on 07-25-2024 Globulin (S) [Mass/Vol] 4.7 g/dL [facility] Hematocrit Auto (Bld) [Volum e fraction]on 07-25-2024 Hematocrit (Bld) [Volume fraction] 33.6 % Low 36.0-48.0 [facility] Hemoglobin [Mass/volume] in Bloodon 07-25-2024 Hemoglobin (Bld) [Mass/Vol] 11.0 g/dL Low 12.0-16.0 [facility] Laboratory - Chemistry and C hemistry - challengeon 07-25-2024 Albumin [Mass/Vol] 2.3 g/dL Low 3.4-5.0 [facility] ALP [Catalytic activity/Vol] 101 U/L 46-116 [facility] ALT [Catalytic activity/Vol] 14 U/L 14-59 [facility] AST [Catalytic activity/Vol] 13 U/L Low 15-37 [facility] Bilirubin [Mass/Vol] 0.8 mg/dL 0.2-1.0 [facility] Calcium [Mass/Vol] 8.6 mg/dL 8.5-10.1 [facility] Chloride [Moles/Vol] 102 mmol/L 98-107 [facility] CO2 [Moles/Vol] 27.8 mmol/L 21.0-32.0 [facility] Creatinine [Mass/Vol] 1.13 mg/dL High 0.55-1.02 [facility] GFR/1.73 sq M.predicted MDRD (S/P/Bld) [Vol rate/Area] 56 mL/min/{1.73_m2} Low >=60 [facility] Glucose [Mass/Vol] 228 mg/dL High 74-106 [facility] Potassium [Moles/Vol] 3.7 mmol/L 3.5-5.1 [facility] Protein [Mass/Vol] 7.0 g/dL 6.4-8.2 [facility] Sodium [Moles/Vol] 140 mmol/L 136-145 [facility] Urea nitrogen [Mass/Vol] 26.0 mg/dL High 7.0-18.0 [facility] Urea nitrogen/Creatinine [Mass ratio] 23.0 mg/mg [facility] Laboratory - Hematology and Cell countson 07-25-2024 Immature granulocytes/100 WBC (Bld) 0.2 % 0.0-0.5 [facility] Leukocytes [#/volume] correc gali for nucleated erythrocytes in Blood by Automated counon 07-25-2024 WBC corrected for nucl RBC Auto (Bld) [#/Vol] 8.7 10 3/uL 4.0-11.0 [facility] Lymphocytes Auto (Bld) [#/Vo l]on 07-25-2024 Lymphocytes (Bld) [#/Vol] 1.4 10 3/uL 1.2-3.8 [facility] Lymphocytes/100 WBC Auto (Bl d)on 07-25-2024 Lymphocytes/100 WBC (Bld) 15.9 % Low 20.5-60.0 [facility] MCH Auto (RBC) [Entitic mass ]on 07-25-2024 MCH (RBC) [Entitic mass] 29.7 pg 26.7-34.0 [facility] MCHC Auto (RBC) [Mass/Vol]on 07-25-2024 MCHC (RBC) [Mass/Vol] 32.7 g/dL 29.9-35.2 [facility] MCV Auto (RBC) [Entitic vol] on 07-25-2024 MCV (RBC) [Entitic vol] 90.8 fL 81.0-99.0 [facility] Monocytes Auto (Bld) [#/Vol] on 07-25-2024 Monocytes (Bld) [#/Vol] 0.7 10 3/uL 0.3-0.8 [facility] Monocytes/100 WBC Auto (Bld) on 07-25-2024 Monocytes/100 WBC (Bld) 8.2 % 1.7-12.0 [facility] Neutrophils Auto (Bld) [#/Vo l]on 07-25-2024 Neutrophils (Bld) [#/Vol] 6.3 10 3/uL 1.4-6.5 [facility] Neutrophils/100 WBC Auto (Bl d)on 07-25-2024 Neutrophils/100 WBC (Bld) 72.9 % 43.0-75.0 [facility] No Panel Informationon 07-25 Eosinophils # (Auto) 0.1 10 3/uL 0.0-0.7 [facility] Immature Granulocyte # (Auto) 0.02 10 3/uL 0.00-0.03 [facility] Platelet mean volume Auto (B ld) [Entitic vol]on 07-25-2024 Platelet mean volume (Bld) [Entitic vol] 10.3 fL 9.5-13.5 [facility] Platelets Auto (Bld) [#/Vol] on 07-25-2024 Platelets (Bld) [#/Vol] 239 10 3/uL 150-450 [facility] RBC Auto (Bld) [#/Vol]on RBC (Bld) [#/Vol] 3.70 10 6/uL Low 4.20-5.40 [facility] Serum or plasma albumin/glob ulin mass ratioon 07-25-2024 Albumin/Globulin [Mass ratio] 0.5 {ratio} [facility] Serum or plasma anion gap de terminationon 07-25-2024 Anion gap [Moles/Vol] 13.9 mmol/L [facility] Basophils Auto (Bld) [#/Vol] on 07-24-2024 Basophils (Bld) [#/Vol] 0.1 10 3/uL 0.0-0.1 [facility] Basophils/100 WBC Auto (Bld) on 07-24-2024 Basophils/100 WBC (Bld) 0.7 % 0.2-2.0 [facility] Eosinophils/100 WBC Auto (Bl d)on 07-24-2024 Eosinophils/100 WBC (Bld) 1.7 % 0.9-7.0 [facility] Erythrocyte distribution wid th Auto (RBC) [Ratio]on 07-24-2024 Erythrocyte distribution width (RBC) [Ratio] 13.7 % 11.0-15.0 [facility] Estimated glomerular filtrat ion rate (GFR) non- Americanon 07-24-2024 GFR/1.73 sq M.predicted among non-blacks MDRD (S/P/Bld) [Vol rate/Area] 48 mL/min/{1.73_m2} Low >=60 [facility] Hematocrit Auto (Bld) [Volum e fraction]on 07-24-2024 Hematocrit (Bld) [Volume fraction] 34.5 % Low 36.0-48.0 [facility] Hemoglobin [Mass/volume] in Bloodon 07-24-2024 Hemoglobin (Bld) [Mass/Vol] 11.2 g/dL Low 12.0-16.0 [facility] Laboratory - Chemistry and C hemistry - challengeon 07-24-2024 Calcium [Mass/Vol] 8.9 mg/dL 8.5-10.1 [facility] Chloride [Moles/Vol] 104 mmol/L 98-107 [facility] CO2 [Moles/Vol] 26.1 mmol/L 21.0-32.0 [facility] Creatinine [Mass/Vol] 1.11 mg/dL High 0.55-1.02 [facility] GFR/1.73 sq M.predicted MDRD (S/P/Bld) [Vol rate/Area] 58 mL/min/{1.73_m2} Low >=60 [facility] Glucose [Mass/Vol] 247 mg/dL High 74-106 [facility] Natriuretic peptide B (Bld) [Mass/Vol] 6277.0 pg/mL High <=1800.0 [facility] Comment on above: RESULTS CALLED TO YOEL STEWARD RN IN ER BY Mira Martinez at 1430 Potassium [Moles/Vol] 4.1 mmol/L 3.5-5.1 [facility] Sodium [Moles/Vol] 141 mmol/L 136-145 [facility] Urea nitrogen [Mass/Vol] 28.0 mg/dL High 7.0-18.0 [facility] Urea nitrogen/Creatinine [Mass ratio] 25.2 mg/mg [facility] Laboratory - Hematology and Cell countson 07-24-2024 Immature granulocytes/100 WBC (Bld) 0.3 % 0.0-0.5 [facility] Leukocytes [#/volume] correc gali for nucleated erythrocytes in Blood by Automated counon 07-24-2024 WBC corrected for nucl RBC Auto (Bld) [#/Vol] 9.7 10 3/uL 4.0-11.0 [facility] Lymphocytes Auto (Bld) [#/Vo l]on 07-24-2024 Lymphocytes (Bld) [#/Vol] 0.9 10 3/uL Low 1.2-3.8 [facility] Lymphocytes/100 WBC Auto (Bl d)on 07-24-2024 Lymphocytes/100 WBC (Bld) 9.2 % Low 20.5-60.0 [facility] MCH Auto (RBC) [Entitic mass ]on 07-24-2024 MCH (RBC) [Entitic mass] 29.9 pg 26.7-34.0 [facility] MCHC Auto (RBC) [Mass/Vol]on 07-24-2024 MCHC (RBC) [Mass/Vol] 32.5 g/dL 29.9-35.2 [facility] MCV Auto (RBC) [Entitic vol] on 07-24-2024 MCV (RBC) [Entitic vol] 92.0 fL 81.0-99.0 [facility] Monocytes Auto (Bld) [#/Vol] on 07-24-2024 Monocytes (Bld) [#/Vol] 0.5 10 3/uL 0.3-0.8 [facility] Monocytes/100 WBC Auto (Bld) on 07-24-2024 Monocytes/100 WBC (Bld) 5.3 % 1.7-12.0 [facility] Neutrophils Auto (Bld) [#/Vo l]on 07-24-2024 Neutrophils (Bld) [#/Vol] 8.0 10 3/uL High 1.4-6.5 [facility] Neutrophils/100 WBC Auto (Bl d)on 07-24-2024 Neutrophils/100 WBC (Bld) 82.8 % High 43.0-75.0 [facility] No Panel Informationon 07-24 Eosinophils # (Auto) 0.2 10 3/uL 0.0-0.7 [facility] Immature Granulocyte # (Auto) 0.03 10 3/uL 0.00-0.03 [facility] Troponin I High Sensitivity 20.5 pg/mL 4.0-51.3 [facility] Comment on above: CUT-OFF POINTS HAVE [...] [Entitic vol] 10.4 fL 9.5-13.5 [facility] Platelets Auto (Bld) [#/Vol] on 07-24-2024 Platelets (Bld) [#/Vol] 236 10 3/uL 150-450 [facility] RBC Auto (Bld) [#/Vol]on RBC (Bld) [#/Vol] 3.75 10 6/uL Low 4.20-5.40 [facility] Serum or plasma anion gap de terminationon 07-24-2024 Anion gap [Moles/Vol] 15.0 mmol/L [facility] Urine Cultureon 07-17-2024 Bacteria identified Cx Nom (U) ORGANISM: Citrobacter freundii complex (O:CITFRC) [place] Count >100,000 ORGANISM: Proteus mirabilis (O:PROMIR) [place] Count 20,000 Aerobic MIRTHA Charge (NMIC56) - [...] RESISTANT TO ALL B-LACTAM DRUGS. PERFORMED BY: [address] [place] [address] PATHOLOGIST PAPER MACHINE OPERATOR CHOLO YEAGER M.D. [facility] Comment on above: Performed By: #### A [facility] eA #### [address] Urine culture routineOrdered By: Shantel Steven on 07-17-2024 Bacteria identified Cx Nom (U) Proteus mirabilis Abnormal [facility] Erythrocyte distribution wid th Auto (RBC) [Ratio]on 07-15-2024 Erythrocyte distribution width (RBC) [Ratio] 13.3 % 11.0-15.0 [facility] Estimated glomerular filtrat ion rate (GFR) non- Americanon 07-15-2024 GFR/1.73 sq M.predicted among non-blacks MDRD (S/P/Bld) [Vol rate/Area] 47 mL/min/{1.73_m2} Low >=60 [facility] Globulin Calc (S) [Mass/Vol] on 07-15-2024 Globulin (S) [Mass/Vol] 4.2 g/dL [facility] Hematocrit Auto (Bld) [Volum e fraction]on 07-15-2024 Hematocrit (Bld) [Volume fraction] 34.9 % Low 36.0-48.0 [facility] Hemoglobin [Mass/volume] in Bloodon 07-15-2024 Hemoglobin (Bld) [Mass/Vol] 11.6 g/dL Low 12.0-16.0 [facility] Laboratory - Chemistry and C hemistry - challengeon 07-15-2024 Bilirubin Ql (U) Negative NEGATIVE [facility] Glucose (U) [Mass/Vol] Negative NEGATIVE [facility] Ketones Ql (U) Negative NEGATIVE [facility] pH (U) 6.5 [pH] 5.0-9.0 [facility] Specific gravity (U) [Rel density] 1.020 1.005-1.025 [facility] Urobilinogen Qn (U) 0.2 {Meka'U}/dL 0.2-1.0 [facility] Albumin [Mass/Vol] 2.6 g/dL Low 3.4-5.0 [facility] ALP [Catalytic activity/Vol] 87 U/L 46-116 [facility] ALT [Catalytic activity/Vol] 18 U/L 14-59 [facility] AST [Catalytic activity/Vol] 14 U/L Low 15-37 [facility] Bilirubin [Mass/Vol] 0.6 mg/dL 0.2-1.0 [facility] Calcium [Mass/Vol] 8.6 mg/dL 8.5-10.1 [facility] Chloride [Moles/Vol] 101 mmol/L 98-107 [facility] CO2 [Moles/Vol] 31.4 mmol/L 21.0-32.0 [facility] Creatinine [Mass/Vol] 1.12 mg/dL High 0.55-1.02 [facility] GFR/1.73 sq M.predicted MDRD (S/P/Bld) [Vol rate/Area] 57 mL/min/{1.73_m2} Low >=60 [facility] Glucose [Mass/Vol] 153 mg/dL High 74-106 [facility] Natriuretic peptide B (Bld) [Mass/Vol] 3410.0 pg/mL High <=1800.0 [facility] Comment on above: RESULTS CALLED TO Bogdan Robin RN at 0840 Potassium [Moles/Vol] 3.6 mmol/L 3.5-5.1 [facility] Protein [Mass/Vol] 6.8 g/dL 6.4-8.2 [facility] Sodium [Moles/Vol] 141 mmol/L 136-145 [facility] Urea nitrogen [Mass/Vol] 43.0 mg/dL High 7.0-18.0 [facility] Urea nitrogen/Creatinine [Mass ratio] 38.4 mg/mg [facility] Laboratory - Specimen inform ationon 07-15-2024 Appearance (U) CLEAR CLEAR [facility] Color (U) LT. YELLOW YELLOW [facility] Laboratory - Urinalysison Leukocyte esterase Test strip Ql (U) Negative NEGATIVE [facility] Mucus Ql (Urine sed) NONE SEEN NONE SEEN [facility] Nitrite Ql (U) Negative NEGATIVE [facility] Protein Ql (U) 100 mg/dL Abnormal NEG/TRACE [facility] Leukocytes [#/volume] correc gali for nucleated erythrocytes in Blood by Automated counon 07-15-2024 WBC corrected for nucl RBC Auto (Bld) [#/Vol] 8.5 10 3/uL 4.0-11.0 [facility] MCH Auto (RBC) [Entitic mass ]on 07-15-2024 MCH (RBC) [Entitic mass] 29.9 pg 26.7-34.0 [facility] MCHC Auto (RBC) [Mass/Vol]on 07-15-2024 MCHC (RBC) [Mass/Vol] 33.2 g/dL 29.9-35.2 [facility] MCV Auto (RBC) [Entitic vol] on 07-15-2024 MCV (RBC) [Entitic vol] 89.9 fL 81.0-99.0 [facility] No Panel Informationon 07-15 Urine Bacteria NONE SEEN #/HPF NONE SEEN [facility] Urine Occult Blood TRACE-I NEGATIVE [facility] Urine RBC 0-2 #/HPF 0-2 [facility] Urine Squamous Epithelial Cells FEW #/LPF Abnormal NONE/RARE [facility] Urine WBC NONE SEEN #/HPF NONE SEEN [facility] NONE SEEN #/HPF NONE SEEN [facility] Negative NEGATIVE [facility] TRACE-I NEGATIVE [facility] CLEAR CLEAR [facility] LT. YELLOW YELLOW [facility] NONE SEEN NONE SEEN [facility] 6.5 5.0-9.0 [facility] 100 mg/dL Abnormal NEG/TRACE [facility] 0-2 #/HPF 0-2 [facility] 1.020 1.005-1.025 [facility] FEW #/LPF Abnormal NONE/RARE [facility] 0.2 EU/dL 0.2-1.0 [facility] Troponin I High Sensitivity 21.3 pg/mL 4.0-51.3 [facility] Comment on above: CUT-OFF POINTS HAVE [...] INFORMATION. 3410.0 pg/mL High <=1800.0 [facility] 21.3 pg/mL 4.0-51.3 [facility] 2.6 g/dL Low 3.4-5.0 [facility] 87 U/L 46-116 [facility] 18 U/L 14-59 [facility] 14 U/L Low 15-37 [facility] 38.4 [facility] 43.0 mg/dL High 7.0-18.0 [facility] 8.6 mg/dL 8.5-10.1 [facility] 101 mmol/L 98-107 [facility] 31.4 mmol/L 21.0-32.0 [facility] 1.12 mg/dL High 0.55-1.02 [facility] 57 Low >=60 [facility] 153 mg/dL High 74-106 [facility] 3.6 mmol/L 3.5-5.1 [facility] 141 mmol/L 136-145 [facility] 0.6 mg/dL 0.2-1.0 [facility] 6.8 g/dL 6.4-8.2 [facility] Platelet mean volume Auto (B ld) [Entitic vol]on 07-15-2024 Platelet mean volume (Bld) [Entitic vol] 11.0 fL 9.5-13.5 [facility] Platelets Auto (Bld) [#/Vol] on 07-15-2024 Platelets (Bld) [#/Vol] 177 10 3/uL 150-450 [facility] RBC Auto (Bld) [#/Vol]on RBC (Bld) [#/Vol] 3.88 10 6/uL Low 4.20-5.40 [facility] Serum or plasma albumin/glob ulin mass ratioon 07-15-2024 Albumin/Globulin [Mass ratio] 0.6 {ratio} [facility] Serum or plasma anion gap de terminationon 07-15-2024 Anion gap [Moles/Vol] 12.2 mmol/L [facility] Basophils Auto (Bld) [#/Vol] on 07-14-2024 Basophils (Bld) [#/Vol] 0.1 10 3/uL 0.0-0.1 [facility] Basophils/100 WBC Auto (Bld) on 07-14-2024 Basophils/100 WBC (Bld) 0.9 % 0.2-2.0 [facility] Eosinophils/100 WBC Auto (Bl d)on 07-14-2024 Eosinophils/100 WBC (Bld) 1.3 % 0.9-7.0 [facility] Erythrocyte distribution wid th Auto (RBC) [Ratio]on 07-14-2024 Erythrocyte distribution width (RBC) [Ratio] 13.5 % 11.0-15.0 [facility] Estimated glomerular filtrat ion rate (GFR) non- Americanon 07-14-2024 GFR/1.73 sq M.predicted among non-blacks MDRD (S/P/Bld) [Vol rate/Area] 30 mL/min/{1.73_m2} Low >=60 [facility] Hematocrit Auto (Bld) [Volum e fraction]on 07-14-2024 Hematocrit (Bld) [Volume fraction] 38.5 % 36.0-48.0 [facility] Hemoglobin [Mass/volume] in Bloodon 07-14-2024 Hemoglobin (Bld) [Mass/Vol] 12.8 g/dL 12.0-16.0 [facility] Laboratory - Chemistry and C hemistry - challengeon 07-14-2024 Calcium [Mass/Vol] 9.0 mg/dL 8.5-10.1 [facility] Chloride [Moles/Vol] 96 mmol/L Low 98-107 [facility] CO2 [Moles/Vol] 35.5 mmol/L High 21.0-32.0 [facility] Creatinine [Mass/Vol] 1.65 mg/dL High 0.55-1.02 [facility] GFR/1.73 sq M.predicted MDRD (S/P/Bld) [Vol rate/Area] 36 mL/min/{1.73_m2} Low >=60 [facility] Glucose [Mass/Vol] 458 mg/dL High 74-106 [facility] Potassium [Moles/Vol] 4.0 mmol/L 3.5-5.1 [facility] Sodium [Moles/Vol] 135 mmol/L Low 136-145 [facility] Urea nitrogen [Mass/Vol] 52.0 mg/dL High 7.0-18.0 [facility] Urea nitrogen/Creatinine [Mass ratio] 31.5 mg/mg [facility] Laboratory - Hematology and Cell countson 07-14-2024 Immature granulocytes/100 WBC (Bld) 0.1 % 0.0-0.5 [facility] Leukocytes [#/volume] correc gali for nucleated erythrocytes in Blood by Automated counon 07-14-2024 WBC corrected for nucl RBC Auto (Bld) [#/Vol] 8.2 10 3/uL 4.0-11.0 [facility] Lymphocytes Auto (Bld) [#/Vo l]on 07-14-2024 Lymphocytes (Bld) [#/Vol] 1.1 10 3/uL Low 1.2-3.8 [facility] Lymphocytes/100 WBC Auto (Bl d)on 07-14-2024 Lymphocytes/100 WBC (Bld) 13.7 % Low 20.5-60.0 [facility] MCH Auto (RBC) [Entitic mass ]on 07-14-2024 MCH (RBC) [Entitic mass] 30.0 pg 26.7-34.0 [facility] MCHC Auto (RBC) [Mass/Vol]on 07-14-2024 MCHC (RBC) [Mass/Vol] 33.2 g/dL 29.9-35.2 [facility] MCV Auto (RBC) [Entitic vol] on 07-14-2024 MCV (RBC) [Entitic vol] 90.2 fL 81.0-99.0 [facility] Monocytes Auto (Bld) [#/Vol] on 07-14-2024 Monocytes (Bld) [#/Vol] 0.5 10 3/uL 0.3-0.8 [facility] Monocytes/100 WBC Auto (Bld) on 07-14-2024 Monocytes/100 WBC (Bld) 6.6 % 1.7-12.0 [facility] Neutrophils Auto (Bld) [#/Vo l]on 07-14-2024 Neutrophils (Bld) [#/Vol] 6.3 10 3/uL 1.4-6.5 [facility] Neutrophils/100 WBC Auto (Bl d)on 07-14-2024 Neutrophils/100 WBC (Bld) 77.4 % High 43.0-75.0 [facility] No Panel Informationon 07-14 Eosinophils # (Auto) 0.1 10 3/uL 0.0-0.7 [facility] Immature Granulocyte # (Auto) 0.01 10 3/uL 0.00-0.03 [facility] Troponin I High Sensitivity 17.9 pg/mL 4.0-51.3 [facility] Comment on above: CUT-OFF POINTS HAVE [...] CLINICAL INFORMATION. 17.9 pg/mL 4.0-51.3 [facility] 31.5 [facility] 0.1 10 3/uL 0.0-0.7 [facility] 52.0 mg/dL High 7.0-18.0 [facility] 9.0 mg/dL 8.5-10.1 [facility] 96 mmol/L Low 98-107 [facility] 35.5 mmol/L High 21.0-32.0 [facility] 0.01 10 3/uL 0.00-0.03 [facility] 1.65 mg/dL High 0.55-1.02 [facility] 0.1 % 0.0-0.5 [facility] 36 Low >=60 [facility] 458 mg/dL High 74-106 [facility] 4.0 mmol/L 3.5-5.1 [facility] 135 mmol/L Low 136-145 [facility] Platelet mean volume Auto (B ld) [Entitic vol]on 07-14-2024 Platelet mean volume (Bld) [Entitic vol] 11.0 fL 9.5-13.5 [facility] Platelets Auto (Bld) [#/Vol] on 07-14-2024 Platelets (Bld) [#/Vol] 182 10 3/uL 150-450 [facility] RBC Auto (Bld) [#/Vol]on RBC (Bld) [#/Vol] 4.27 10 6/uL 4.20-5.40 [facility] Serum or plasma anion gap de terminationon 07-14-2024 Anion gap [Moles/Vol] 7.5 mmol/L [facility] 36on 07-01-2024 36 Regarding lab result [...] for patient to return my call. Normal [facility] Estimated glomerular filtrat ion rate (GFR) non- Americanon 06-24-2024 GFR/1.73 sq M.predicted among non-blacks MDRD (S/P/Bld) [Vol rate/Area] 38 mL/min/{1.73_m2} Low >=60 [facility] Laboratory - Chemistry and C hemistry - challengeon 06-24-2024 Calcium [Mass/Vol] 8.4 mg/dL Low 8.5-10.1 [facility] Chloride [Moles/Vol] 100 mmol/L 98-107 [facility] CO2 [Moles/Vol] 31.1 mmol/L 21.0-32.0 [facility] Creatinine [Mass/Vol] 1.34 mg/dL High 0.55-1.02 [facility] GFR/1.73 sq M.predicted MDRD (S/P/Bld) [Vol rate/Area] 46 mL/min/{1.73_m2} Low >=60 [facility] Glucose [Mass/Vol] 222 mg/dL High 74-106 [facility] Potassium [Moles/Vol] 3.6 mmol/L 3.5-5.1 [facility] Sodium [Moles/Vol] 138 mmol/L 136-145 [facility] Urea nitrogen [Mass/Vol] 32.0 mg/dL High 7.0-18.0 [facility] Urea nitrogen/Creatinine [Mass ratio] 23.9 mg/mg [facility] No Panel Informationon 06-24 23.9 [facility] 32.0 mg/dL High 7.0-18.0 [facility] 8.4 mg/dL Low 8.5-10.1 [facility] 100 mmol/L 98-107 [facility] 31.1 mmol/L 21.0-32.0 [facility] 1.34 mg/dL High 0.55-1.02 [facility] 46 Low >=60 [facility] 222 mg/dL High 74-106 [facility] 3.6 mmol/L 3.5-5.1 [facility] 138 mmol/L 136-145 [facility] Serum or plasma anion gap de terminationon 06-24-2024 Anion gap [Moles/Vol] 10.5 mmol/L [facility] Office Visiton 06-18-2024 Follow-up visit [id number] Joe Call 1945 F Date Provider Department Center 06/18/2024 RICA DEAN LOVE Bruno Family History Problem Relation Age of Onset Coronary artery disease Other Diabetes Other Polycystic kidney disease Other Family Status - Relation Status Age at Other Level of Service:[address] [place] OFFICE/OUTPATIENT ESTABLISHED MOD MDM 30 MIN Normal [facility] Basophils Auto (Bld) [#/Vol] on 06-10-2024 Basophils (Bld) [#/Vol] 0.1 10 3/uL 0.0-0.1 [facility] Basophils/100 WBC Auto (Bld) on 06-10-2024 Basophils/100 WBC (Bld) 1.0 % 0.2-2.0 [facility] Eosinophils/100 WBC Auto (Bl d)on 06-10-2024 Eosinophils/100 WBC (Bld) 1.3 % 0.9-7.0 [facility] Erythrocyte distribution wid th Auto (RBC) [Ratio]on 06-10-2024 Erythrocyte distribution width (RBC) [Ratio] 14.6 % 11.0-15.0 [facility] Estimated glomerular filtrat ion rate (GFR) non- Americanon 06-10-2024 GFR/1.73 sq M.predicted among non-blacks MDRD (S/P/Bld) [Vol rate/Area] 54 mL/min/{1.73_m2} Low >=60 [facility] Globulin Calc (S) [Mass/Vol] on 06-10-2024 Globulin (S) [Mass/Vol] 4.5 g/dL [facility] Hematocrit Auto (Bld) [Volum e fraction]on 06-10-2024 Hematocrit (Bld) [Volume fraction] 36.8 % 36.0-48.0 [facility] Hemoglobin [Mass/volume] in Bloodon 06-10-2024 Hemoglobin (Bld) [Mass/Vol] 12.1 g/dL 12.0-16.0 [facility] Laboratory - Chemistry and C hemistry - challengeon 06-10-2024 Albumin [Mass/Vol] 2.4 g/dL Low 3.4-5.0 [facility] ALP [Catalytic activity/Vol] 94 U/L 46-116 [facility] ALT [Catalytic activity/Vol] 13 U/L Low 14-59 [facility] AST [Catalytic activity/Vol] 13 U/L Low 15-37 [facility] Bilirubin [Mass/Vol] 0.9 mg/dL 0.2-1.0 [facility] Calcium [Mass/Vol] 8.9 mg/dL 8.5-10.1 [facility] Chloride [Moles/Vol] 101 mmol/L 98-107 [facility] CO2 [Moles/Vol] 29.4 mmol/L 21.0-32.0 [facility] Creatinine [Mass/Vol] 1.00 mg/dL 0.55-1.02 [facility] GFR/1.73 sq M.predicted MDRD (S/P/Bld) [Vol rate/Area] mL/min/{1.73_m2} >=60 [facility] Glucose [Mass/Vol] 167 mg/dL High 74-106 [facility] Potassium [Moles/Vol] 3.4 mmol/L Low 3.5-5.1 [facility] Protein [Mass/Vol] 6.9 g/dL 6.4-8.2 [facility] Sodium [Moles/Vol] 136 mmol/L 136-145 [facility] Urea nitrogen [Mass/Vol] 24.0 mg/dL High 7.0-18.0 [facility] Urea nitrogen/Creatinine [Mass ratio] 24.0 mg/mg [facility] Laboratory - Hematology and Cell countson 06-10-2024 Immature granulocytes/100 WBC (Bld) 0.3 % 0.0-0.5 [facility] Leukocytes [#/volume] correc gali for nucleated erythrocytes in Blood by Automated counon 06-10-2024 WBC corrected for nucl RBC Auto (Bld) [#/Vol] 7.9 10 3/uL 4.0-11.0 [facility] Lymphocytes Auto (Bld) [#/Vo l]on 06-10-2024 Lymphocytes (Bld) [#/Vol] 1.3 10 3/uL 1.2-3.8 [facility] Lymphocytes/100 WBC Auto (Bl d)on 06-10-2024 Lymphocytes/100 WBC (Bld) 16.8 % Low 20.5-60.0 [facility] MCH Auto (RBC) [Entitic mass ]on 06-10-2024 MCH (RBC) [Entitic mass] 29.8 pg 26.7-34.0 [facility] MCHC Auto (RBC) [Mass/Vol]on 06-10-2024 MCHC (RBC) [Mass/Vol] 32.9 g/dL 29.9-35.2 [facility] MCV Auto (RBC) [Entitic vol] on 06-10-2024 MCV (RBC) [Entitic vol] 90.6 fL 81.0-99.0 [facility] Monocytes Auto (Bld) [#/Vol] on 06-10-2024 Monocytes (Bld) [#/Vol] 0.8 10 3/uL 0.3-0.8 [facility] Monocytes/100 WBC Auto (Bld) on 06-10-2024 Monocytes/100 WBC (Bld) 9.8 % 1.7-12.0 [facility] Neutrophils Auto (Bld) [#/Vo l]on 06-10-2024 Neutrophils (Bld) [#/Vol] 5.6 10 3/uL 1.4-6.5 [facility] Neutrophils/100 WBC Auto (Bl d)on 06-10-2024 Neutrophils/100 WBC (Bld) 70.8 % 43.0-75.0 [facility] No Panel Informationon 06-10 Eosinophils # (Auto) 0.1 10 3/uL 0.0-0.7 [facility] Immature Granulocyte # (Auto) 0.02 10 3/uL 0.00-0.03 [facility] 2.4 g/dL Low 3.4-5.0 [facility] 0.1 10 3/uL 0.0-0.7 [facility] 94 U/L 46-116 [facility] 13 U/L Low 15-37 [facility] 24.0 [facility] 0.02 10 3/uL 0.00-0.03 [facility] 24.0 mg/dL High 7.0-18.0 [facility] 0.3 % 0.0-0.5 [facility] 8.9 mg/dL 8.5-10.1 [facility] 101 mmol/L 98-107 [facility] 29.4 mmol/L 21.0-32.0 [facility] 1.00 mg/dL 0.55-1.02 [facility] >60 >=60 [facility] 167 mg/dL High 74-106 [facility] 3.4 mmol/L Low 3.5-5.1 [facility] 136 mmol/L 136-145 [facility] 0.9 mg/dL 0.2-1.0 [facility] 6.9 g/dL 6.4-8.2 [facility] Platelet mean volume Auto (B ld) [Entitic vol]on 06-10-2024 Platelet mean volume (Bld) [Entitic vol] 11.2 fL 9.5-13.5 [facility] Platelets Auto (Bld) [#/Vol] on 06-10-2024 Platelets (Bld) [#/Vol] 189 10 3/uL 150-450 [facility] RBC Auto (Bld) [#/Vol]on RBC (Bld) [#/Vol] 4.06 10 6/uL Low 4.20-5.40 [facility] Serum or plasma albumin/glob ulin mass ratioon 06-10-2024 Albumin/Globulin [Mass ratio] 0.5 {ratio} [facility] Serum or plasma anion gap de terminationon 06-10-2024 Anion gap [Moles/Vol] 9.0 mmol/L [facility] Basophils Auto (Bld) [#/Vol] on 06-09-2024 Basophils (Bld) [#/Vol] 0.1 10 3/uL 0.0-0.1 [facility] Basophils/100 WBC Auto (Bld) on 06-09-2024 Basophils/100 WBC (Bld) 1.0 % 0.2-2.0 [facility] Eosinophils/100 WBC Auto (Bl d)on 06-09-2024 Eosinophils/100 WBC (Bld) 1.5 % 0.9-7.0 [facility] Erythrocyte distribution wid th Auto (RBC) [Ratio]on 06-09-2024 Erythrocyte distribution width (RBC) [Ratio] 14.8 % 11.0-15.0 [facility] Estimated glomerular filtrat ion rate (GFR) non- Americanon 06-09-2024 GFR/1.73 sq M.predicted among non-blacks MDRD (S/P/Bld) [Vol rate/Area] mL/min/{1.73_m2} >=60 [facility] Fibrin D-dimer [Presence] in Platelet poor plasma by Latex agglutinationon 06-09-2024 Fibrin D-dimer LA Ql (PPP) 0.39 mg/L FEU <=0.59 [facility] Comment on above: Increases in D-Dimer [...] on 06-09-2024 Globulin (S) [Mass/Vol] 4.8 g/dL [facility] Hematocrit Auto (Bld) [Volum e fraction]on 06-09-2024 Hematocrit (Bld) [Volume fraction] 37.7 % 36.0-48.0 [facility] Hemoglobin [Mass/volume] in Bloodon 06-09-2024 Hemoglobin (Bld) [Mass/Vol] 12.5 g/dL 12.0-16.0 [facility] Laboratory - Chemistry and C hemistry - challengeon 06-09-2024 Albumin [Mass/Vol] 2.5 g/dL Low 3.4-5.0 [facility] ALP [Catalytic activity/Vol] 86 U/L 46-116 [facility] ALT [Catalytic activity/Vol] 18 U/L 14-59 [facility] AST [Catalytic activity/Vol] 34 U/L 15-37 [facility] Bilirubin [Mass/Vol] 0.8 mg/dL 0.2-1.0 [facility] Calcium [Mass/Vol] 8.6 mg/dL 8.5-10.1 [facility] Chloride [Moles/Vol] 103 mmol/L 98-107 [facility] CO2 [Moles/Vol] 27.1 mmol/L 21.0-32.0 [facility] Creatinine [Mass/Vol] 0.88 mg/dL 0.55-1.02 [facility] GFR/1.73 sq M.predicted MDRD (S/P/Bld) [Vol rate/Area] mL/min/{1.73_m2} >=60 [facility] Glucose [Mass/Vol] 142 mg/dL High 74-106 [facility] Lipase [Catalytic activity/Vol] 45.0 U/L 16.0-77.0 [facility] Natriuretic peptide B (Bld) [Mass/Vol] 3488.0 pg/mL High <=1800.0 [facility] Comment on above: RESULTS CALLED TO MAIDA MCGOWAN RN @BY Alla Kevin [phone] Potassium [Moles/Vol] 5.0 mmol/L 3.5-5.1 [facility] Protein [Mass/Vol] 7.3 g/dL 6.4-8.2 [facility] Sodium [Moles/Vol] 135 mmol/L Low 136-145 [facility] Urea nitrogen [Mass/Vol] 28.0 mg/dL High 7.0-18.0 [facility] Urea nitrogen/Creatinine [Mass ratio] 31.8 mg/mg [facility] Laboratory - Hematology and Cell countson 06-09-2024 Immature granulocytes/100 WBC (Bld) 0.3 % 0.0-0.5 [facility] Laboratory - Microbiology an d Antimicrobial susceptibilityon 06-09-2024 SARS-CoV-2 (COVID-19) RNA FERN+probe Ql (Unsp spec) Negative NEGATIVE [facility] Comment on above: This test has [...] [#/Vol] 8.9 10 3/uL 4.0-11.0 [facility] Lymphocytes Auto (Bld) [#/Vo l]on 06-09-2024 Lymphocytes (Bld) [#/Vol] 1.3 10 3/uL 1.2-3.8 [facility] Lymphocytes/100 WBC Auto (Bl d)on 06-09-2024 Lymphocytes/100 WBC (Bld) 15.1 % Low 20.5-60.0 [facility] MCH Auto (RBC) [Entitic mass ]on 06-09-2024 MCH (RBC) [Entitic mass] 30.3 pg 26.7-34.0 [facility] MCHC Auto (RBC) [Mass/Vol]on 06-09-2024 MCHC (RBC) [Mass/Vol] 33.2 g/dL 29.9-35.2 [facility] MCV Auto (RBC) [Entitic vol] on 06-09-2024 MCV (RBC) [Entitic vol] 91.5 fL 81.0-99.0 [facility] Monocytes Auto (Bld) [#/Vol] on 06-09-2024 Monocytes (Bld) [#/Vol] 0.7 10 3/uL 0.3-0.8 [facility] Monocytes/100 WBC Auto (Bld) on 06-09-2024 Monocytes/100 WBC (Bld) 7.9 % 1.7-12.0 [facility] Neutrophils Auto (Bld) [#/Vo l]on 06-09-2024 Neutrophils (Bld) [#/Vol] 6.6 10 3/uL High 1.4-6.5 [facility] Neutrophils/100 WBC Auto (Bl d)on 06-09-2024 Neutrophils/100 WBC (Bld) 74.2 % 43.0-75.0 [facility] No Panel Informationon 06-09 Negative NEGATIVE [facility] Eosinophils # (Auto) 0.1 10 3/uL 0.0-0.7 [facility] Immature Granulocyte # (Auto) 0.03 10 3/uL 0.00-0.03 [facility] Troponin I High Sensitivity 17.0 pg/mL 4.0-51.3 [facility] Comment on above: CUT-OFF POINTS HAVE [...] INFORMATION. 3488.0 pg/mL High <=1800.0 [facility] 45.0 U/L 16.0-77.0 [facility] 17.0 pg/mL 4.0-51.3 [facility] 2.5 g/dL Low 3.4-5.0 [facility] 0.1 10 3/uL 0.0-0.7 [facility] 86 U/L 46-116 [facility] 18 U/L 14-59 [facility] 34 U/L 15-37 [facility] 31.8 [facility] 0.03 10 3/uL 0.00-0.03 [facility] 28.0 mg/dL High 7.0-18.0 [facility] 0.3 % 0.0-0.5 [facility] 8.6 mg/dL 8.5-10.1 [facility] 103 mmol/L 98-107 [facility] 27.1 mmol/L 21.0-32.0 [facility] 0.88 mg/dL 0.55-1.02 [facility] >60 >=60 [facility] 142 mg/dL High 74-106 [facility] 5.0 mmol/L 3.5-5.1 [facility] 135 mmol/L Low 136-145 [facility] 0.8 mg/dL 0.2-1.0 [facility] 7.3 g/dL 6.4-8.2 [facility] Platelet mean volume Auto (B ld) [Entitic vol]on 06-09-2024 Platelet mean volume (Bld) [Entitic vol] 12.4 fL 9.5-13.5 [facility] Platelets Auto (Bld) [#/Vol] on 06-09-2024 Platelets (Bld) [#/Vol] 205 10 3/uL 150-450 [facility] RBC Auto (Bld) [#/Vol]on RBC (Bld) [#/Vol] 4.12 10 6/uL Low 4.20-5.40 [facility] Serum or plasma albumin/glob ulin mass ratioon 06-09-2024 Albumin/Globulin [Mass ratio] 0.5 {ratio} [facility] Serum or plasma anion gap de terminationon 06-09-2024 Anion gap [Moles/Vol] 9.9 mmol/L [facility] Basophils Auto (Bld) [#/Vol] on 06-01-2024 Basophils (Bld) [#/Vol] 0.1 10 3/uL 0.0-0.1 [facility] Basophils/100 WBC Auto (Bld) on 06-01-2024 Basophils/100 WBC (Bld) 0.9 % 0.2-2.0 [facility] Eosinophils/100 WBC Auto (Bl d)on 06-01-2024 Eosinophils/100 WBC (Bld) 1.2 % 0.9-7.0 [facility] Erythrocyte distribution wid th Auto (RBC) [Ratio]on 06-01-2024 Erythrocyte distribution width (RBC) [Ratio] 14.1 % 11.0-15.0 [facility] Estimated glomerular filtrat ion rate (GFR) non- Americanon 06-01-2024 GFR/1.73 sq M.predicted among non-blacks MDRD (S/P/Bld) [Vol rate/Area] 47 mL/min/{1.73_m2} Low >=60 [facility] Globulin Calc (S) [Mass/Vol] on 06-01-2024 Globulin (S) [Mass/Vol] 4.4 g/dL [facility] Hematocrit Auto (Bld) [Volum e fraction]on 06-01-2024 Hematocrit (Bld) [Volume fraction] 37.6 % 36.0-48.0 [facility] Hemoglobin [Mass/volume] in Bloodon 06-01-2024 Hemoglobin (Bld) [Mass/Vol] 12.5 g/dL 12.0-16.0 [facility] Laboratory - Chemistry and C hemistry - challengeon 06-01-2024 Albumin [Mass/Vol] 2.7 g/dL Low 3.4-5.0 [facility] ALP [Catalytic activity/Vol] 87 U/L 46-116 [facility] ALT [Catalytic activity/Vol] 18 U/L 14-59 [facility] AST [Catalytic activity/Vol] 16 U/L 15-37 [facility] Bilirubin [Mass/Vol] 0.5 mg/dL 0.2-1.0 [facility] Calcium [Mass/Vol] 8.7 mg/dL 8.5-10.1 [facility] Chloride [Moles/Vol] 101 mmol/L 98-107 [facility] CO2 [Moles/Vol] 28.9 mmol/L 21.0-32.0 [facility] Creatinine [Mass/Vol] 1.12 mg/dL High 0.55-1.02 [facility] GFR/1.73 sq M.predicted MDRD (S/P/Bld) [Vol rate/Area] 57 mL/min/{1.73_m2} Low >=60 [facility] Glucose [Mass/Vol] 232 mg/dL High 74-106 [facility] Potassium [Moles/Vol] 4.1 mmol/L 3.5-5.1 [facility] Protein [Mass/Vol] 7.1 g/dL 6.4-8.2 [facility] Sodium [Moles/Vol] 137 mmol/L 136-145 [facility] Urea nitrogen [Mass/Vol] 23.0 mg/dL High 7.0-18.0 [facility] Urea nitrogen/Creatinine [Mass ratio] 20.5 mg/mg [facility] Laboratory - Hematology and Cell countson 06-01-2024 Immature granulocytes/100 WBC (Bld) 0.2 % 0.0-0.5 [facility] Leukocytes [#/volume] correc gali for nucleated erythrocytes in Blood by Automated counon 06-01-2024 WBC corrected for nucl RBC Auto (Bld) [#/Vol] 9.0 10 3/uL 4.0-11.0 [facility] Lymphocytes Auto (Bld) [#/Vo l]on 06-01-2024 Lymphocytes (Bld) [#/Vol] 1.4 10 3/uL 1.2-3.8 [facility] Lymphocytes/100 WBC Auto (Bl d)on 06-01-2024 Lymphocytes/100 WBC (Bld) 15.9 % Low 20.5-60.0 [facility] MCH Auto (RBC) [Entitic mass ]on 06-01-2024 MCH (RBC) [Entitic mass] 29.5 pg 26.7-34.0 [facility] MCHC Auto (RBC) [Mass/Vol]on 06-01-2024 MCHC (RBC) [Mass/Vol] 33.2 g/dL 29.9-35.2 [facility] MCV Auto (RBC) [Entitic vol] on 06-01-2024 MCV (RBC) [Entitic vol] 88.7 fL 81.0-99.0 [facility] Monocytes Auto (Bld) [#/Vol] on 06-01-2024 Monocytes (Bld) [#/Vol] 0.8 10 3/uL 0.3-0.8 [facility] Monocytes/100 WBC Auto (Bld) on 06-01-2024 Monocytes/100 WBC (Bld) 8.5 % 1.7-12.0 [facility] Neutrophils Auto (Bld) [#/Vo l]on 06-01-2024 Neutrophils (Bld) [#/Vol] 6.6 10 3/uL High 1.4-6.5 [facility] Neutrophils/100 WBC Auto (Bl d)on 06-01-2024 Neutrophils/100 WBC (Bld) 73.3 % 43.0-75.0 [facility] No Panel Informationon 06-01 Eosinophils # (Auto) 0.1 10 3/uL 0.0-0.7 [facility] Immature Granulocyte # (Auto) 0.02 10 3/uL 0.00-0.03 [facility] 2.7 g/dL Low 3.4-5.0 [facility] 0.1 10 3/uL 0.0-0.7 [facility] 87 U/L 46-116 [facility] 18 U/L 14-59 [facility] 16 U/L 15-37 [facility] 20.5 [facility] 0.02 10 3/uL 0.00-0.03 [facility] 23.0 mg/dL High 7.0-18.0 [facility] 0.2 % 0.0-0.5 [facility] 8.7 mg/dL 8.5-10.1 [facility] 101 mmol/L 98-107 [facility] 28.9 mmol/L 21.0-32.0 [facility] 1.12 mg/dL High 0.55-1.02 [facility] 57 Low >=60 [facility] 232 mg/dL High 74-106 [facility] 4.1 mmol/L 3.5-5.1 [facility] 137 mmol/L 136-145 [facility] 0.5 mg/dL 0.2-1.0 [facility] 7.1 g/dL 6.4-8.2 [facility] Platelet mean volume Auto (B ld) [Entitic vol]on 06-01-2024 Platelet mean volume (Bld) [Entitic vol] 11.1 fL 9.5-13.5 [facility] Platelets Auto (Bld) [#/Vol] on 06-01-2024 Platelets (Bld) [#/Vol] 162 10 3/uL 150-450 [facility] RBC Auto (Bld) [#/Vol]on RBC (Bld) [#/Vol] 4.24 10 6/uL 4.20-5.40 [facility] Serum or plasma albumin/glob ulin mass ratioon 06-01-2024 Albumin/Globulin [Mass ratio] 0.6 {ratio} [facility] Serum or plasma anion gap de terminationon 06-01-2024 Anion gap [Moles/Vol] [facility] Bas[facility] Auto (Bld) [#/Vol] on 05-26-2024 Basophils (Bld) [#/Vol] 0.1 10 3/uL 0.0-0.1 [facility] Basophils/100 WBC Auto (Bld) on 05-26-2024 Basophils/100 WBC (Bld) 1.1 % 0.2-2.0 [facility] Eosinophils/100 WBC Auto (Bl d)on 05-26-2024 Eosinophils/100 WBC (Bld) 2.1 % 0.9-7.0 [facility] Erythrocyte distribution wid th Auto (RBC) [Ratio]on 05-26-2024 Erythrocyte distribution width (RBC) [Ratio] 14.0 % 11.0-15.0 [facility] Estimated glomerular filtrat ion rate (GFR) non- Americanon 05-26-2024 GFR/1.73 sq M.predicted among non-blacks MDRD (S/P/Bld) [Vol rate/Area] 40 mL/min/{1.73_m2} Low >=60 [facility] Globulin Calc (S) [Mass/Vol] on 05-26-2024 Globulin (S) [Mass/Vol] 4.4 g/dL [facility] Hematocrit Auto (Bld) [Volum e fraction]on 05-26-2024 Hematocrit (Bld) [Volume fraction] 35.9 % Low 36.0-48.0 [facility] Hemoglobin [Mass/volume] in Bloodon 05-26-2024 Hemoglobin (Bld) [Mass/Vol] 12.0 g/dL 12.0-16.0 [facility] Laboratory - Chemistry and C hemistry - challengeon 05-26-2024 Albumin [Mass/Vol] 2.7 g/dL Low 3.4-5.0 [facility] ALP [Catalytic activity/Vol] 88 U/L 46-116 [facility] ALT [Catalytic activity/Vol] 20 U/L 14-59 [facility] AST [Catalytic activity/Vol] 12 U/L Low 15-37 [facility] Bilirubin [Mass/Vol] 0.5 mg/dL 0.2-1.0 [facility] Calcium [Mass/Vol] 8.9 mg/dL 8.5-10.1 [facility] Chloride [Moles/Vol] 104 mmol/L 98-107 [facility] CO2 [Moles/Vol] 26.7 mmol/L 21.0-32.0 [facility] Creatinine [Mass/Vol] 1.29 mg/dL High 0.55-1.02 [facility] Free T4 [Mass/Vol] 1.19 ng/dL 0.76-1.46 [facility] GFR/1.73 sq M.predicted MDRD (S/P/Bld) [Vol rate/Area] 49 mL/min/{1.73_m2} Low >=60 [facility] Glucose [Mass/Vol] 233 mg/dL High 74-106 [facility] Natriuretic peptide B (Bld) [Mass/Vol] 2687.0 pg/mL High <=1800.0 [facility] Comment on above: RESULTS CALLED TO DR Miranda ALVAREZ IN ER BY Mira Edwards [phone] Potassium [Moles/Vol] 4.0 mmol/L 3.5-5.1 [facility] Protein [Mass/Vol] 7.1 g/dL 6.4-8.2 [facility] Sodium [Moles/Vol] 140 mmol/L 136-145 [facility] TSH Qn 4.487 m[IU]/L High 0.358-3.740 [facility] Urea nitrogen [Mass/Vol] 33.0 mg/dL High 7.0-18.0 [facility] Urea nitrogen/Creatinine [Mass ratio] 25.6 mg/mg [facility] Laboratory - Hematology and Cell countson 05-26-2024 Immature granulocytes/100 WBC (Bld) 0.1 % 0.0-0.5 [facility] Laboratory - Microbiology an d Antimicrobial susceptibilityon 05-26-2024 S. pyogenes Ag Ql (Unsp spec) Negative [facility] SARS-CoV-2 (COVID-19) RNA FERN+probe Ql (Unsp spec) Not detected NOT DETECTE [facility] Comment on above: THIS TEST IS NOT PEREZ ROVDED BY THE FDA. It has beenauthorized for use under an Emergency Use Authorization. SARS-CoV-2 (COVID-19) RNA FERN+probe Ql (Unsp spec) See comment NOT DETECTE [facility] Comment on above: COVID AG PERFORMED-- - 06/06/24 1120 ---SARS-CoV-2 FERN previously reported as: NOT DETECTEDTHIS TEST IS NOT APPROVDED BY THE FDA. It has beenauthorized for use under an Emergency Use Authorization. SARS-CoV-2 (COVID-19) RNA FERN+probe Ql (Unsp spec) Negative NEGATIVE [facility] Comment on above: This test has [...] [#/Vol] 7.3 10 3/uL 4.0-11.0 [facility] Lymphocytes Auto (Bld) [#/Vo l]on 05-26-2024 Lymphocytes (Bld) [#/Vol] 1.3 10 3/uL 1.2-3.8 [facility] Lymphocytes/100 WBC Auto (Bl d)on 05-26-2024 Lymphocytes/100 WBC (Bld) 18.4 % Low 20.5-60.0 [facility] MCH Auto (RBC) [Entitic mass ]on 05-26-2024 MCH (RBC) [Entitic mass] 30.4 pg 26.7-34.0 [facility] MCHC Auto (RBC) [Mass/Vol]on 05-26-2024 MCHC (RBC) [Mass/Vol] 33.4 g/dL 29.9-35.2 [facility] MCV Auto (RBC) [Entitic vol] on 05-26-2024 MCV (RBC) [Entitic vol] 90.9 fL 81.0-99.0 [facility] Monocytes Auto (Bld) [#/Vol] on 05-26-2024 Monocytes (Bld) [#/Vol] 0.7 10 3/uL 0.3-0.8 [facility] Monocytes/100 WBC Auto (Bld) on 05-26-2024 Monocytes/100 WBC (Bld) 9.5 % 1.7-12.0 [facility] Neutrophils Auto (Bld) [#/Vo l]on 05-26-2024 Neutrophils (Bld) [#/Vol] 5.0 10 3/uL 1.4-6.5 [facility] Neutrophils/100 WBC Auto (Bl d)on 05-26-2024 Neutrophils/100 WBC (Bld) 68.8 % 43.0-75.0 [facility] No Panel Informationon 05-26 See comment NOT DETECTE [facility] Negative [facility] Eosinophils # (Auto) 0.2 10 3/uL 0.0-0.7 [facility] Immature Granulocyte # (Auto) 0.01 10 3/uL 0.00-0.03 [facility] Monoscreen Negative NEGATIVE [facility] Troponin I High Sensitivity 14.9 pg/mL 4.0-51.3 [facility] Comment on above: CUT-OFF POINTS HAVE [...] CLINICAL INFORMATION. 1.19 ng/dL 0.76-1.46 [facility] 2687.0 pg/mL High <=1800.0 [facility] 14.9 pg/mL 4.0-51.3 [facility] 4.487 u[iU]/mL High 0.358-3.740 [facility] Negative NEGATIVE [facility] 2.7 g/dL Low 3.4-5.0 [facility] 0.2 10 3/uL 0.0-0.7 [facility] 88 U/L 46-116 [facility] 20 U/L 14-59 [facility] 12 U/L Low 15-37 [facility] 25.6 [facility] 0.01 10 3/uL 0.00-0.03 [facility] 33.0 mg/dL High 7.0-18.0 [facility] 0.1 % 0.0-0.5 [facility] 8.9 mg/dL 8.5-10.1 [facility] 104 mmol/L 98-107 [facility] 26.7 mmol/L 21.0-32.0 [facility] 1.29 mg/dL High 0.55-1.02 [facility] 49 Low >=60 [facility] 233 mg/dL High 74-106 [facility] 4.0 mmol/L 3.5-5.1 [facility] 140 mmol/L 136-145 [facility] 0.5 mg/dL 0.2-1.0 [facility] 7.1 g/dL 6.4-8.2 [facility] Platelet mean volume Auto (B ld) [Entitic vol]on 05-26-2024 Platelet mean volume (Bld) [Entitic vol] 10.6 fL 9.5-13.5 [facility] Platelets Auto (Bld) [#/Vol] on 05-26-2024 Platelets (Bld) [#/Vol] 215 10 3/uL 150-450 [facility] RBC Auto (Bld) [#/Vol]on RBC (Bld) [#/Vol] 3.95 10 6/uL Low 4.20-5.40 [facility] Serum or plasma albumin/glob ulin mass ratioon 05-26-2024 Albumin/Globulin [Mass ratio] 0.6 {ratio} [facility] Serum or plasma anion gap de terminationon 05-26-2024 Anion gap [Moles/Vol] 13.3 mmol/L [facility] Estimated glomerular filtrat ion rate (GFR) non- Americanon 05-20-2024 GFR/1.73 sq M.predicted among non-blacks MDRD (S/P/Bld) [Vol rate/Area] 39 mL/min/{1.73_m2} Low >=60 [facility] Laboratory - Chemistry and C hemistry - challengeon 05-20-2024 Calcium [Mass/Vol] 8.8 mg/dL 8.5-10.1 [facility] Chloride [Moles/Vol] 103 mmol/L 98-107 [facility] CO2 [Moles/Vol] 24.3 mmol/L 21.0-32.0 [facility] Creatinine [Mass/Vol] 1.32 mg/dL High 0.55-1.02 [facility] GFR/1.73 sq M.predicted MDRD (S/P/Bld) [Vol rate/Area] 47 mL/min/{1.73_m2} Low >=60 [facility] Glucose [Mass/Vol] 243 mg/dL High 74-106 [facility] Potassium [Moles/Vol] 5.0 mmol/L 3.5-5.1 [facility] Sodium [Moles/Vol] 138 mmol/L 136-145 [facility] Urea nitrogen [Mass/Vol] 35.0 mg/dL High 7.0-18.0 [facility] Urea nitrogen/Creatinine [Mass ratio] 26.5 mg/mg [facility] No Panel Informationon 05-20 26.5 [facility] 35.0 mg/dL High 7.0-18.0 [facility] 8.8 mg/dL 8.5-10.1 [facility] 103 mmol/L 98-107 [facility] 24.3 mmol/L 21.0-32.0 [facility] 1.32 mg/dL High 0.55-1.02 [facility] 47 Low >=60 [facility] 243 mg/dL High 74-106 [facility] 5.0 mmol/L 3.5-5.1 [facility] 138 mmol/L 136-145 [facility] Serum or plasma anion gap de terminationon 05-20-2024 Anion gap [Moles/Vol] [facility] Bas[facility] Auto (Bld) [#/Vol] on 05-06-2024 Basophils (Bld) [#/Vol] 0.1 10 3/uL 0.0-0.1 [facility] Basophils/100 WBC Auto (Bld) on 05-06-2024 Basophils/100 WBC (Bld) 0.9 % 0.2-2.0 [facility] Eosinophils/100 WBC Auto (Bl d)on 05-06-2024 Eosinophils/100 WBC (Bld) 2.7 % 0.9-7.0 [facility] Erythrocyte distribution wid th Auto (RBC) [Ratio]on 05-06-2024 Erythrocyte distribution width (RBC) [Ratio] 13.5 % 11.0-15.0 [facility] Estimated glomerular filtrat ion rate (GFR) non- Americanon 05-06-2024 GFR/1.73 sq M.predicted among non-blacks MDRD (S/P/Bld) [Vol rate/Area] 32 mL/min/{1.73_m2} Low >=60 [facility] Globulin Calc (S) [Mass/Vol] on 05-06-2024 Globulin (S) [Mass/Vol] 4.3 g/dL [facility] Hematocrit Auto (Bld) [Volum e fraction]on 05-06-2024 Hematocrit (Bld) [Volume fraction] 34.6 % Low 36.0-48.0 [facility] Hemoglobin [Mass/volume] in Bloodon 05-06-2024 Hemoglobin (Bld) [Mass/Vol] 11.1 g/dL Low 12.0-16.0 [facility] Laboratory - Chemistry and C hemistry - challengeon 05-06-2024 Albumin [Mass/Vol] 2.5 g/dL Low 3.4-5.0 [facility] ALP [Catalytic activity/Vol] 75 U/L 46-116 [facility] ALT [Catalytic activity/Vol] 16 U/L 14-59 [facility] AST [Catalytic activity/Vol] 11 U/L Low 15-37 [facility] Bilirubin [Mass/Vol] 0.4 mg/dL 0.2-1.0 [facility] Calcium [Mass/Vol] 8.4 mg/dL Low 8.5-10.1 [facility] Chloride [Moles/Vol] 107 mmol/L 98-107 [facility] CO2 [Moles/Vol] 25.7 mmol/L 21.0-32.0 [facility] Creatinine [Mass/Vol] 1.58 mg/dL High 0.55-1.02 [facility] GFR/1.73 sq M.predicted MDRD (S/P/Bld) [Vol rate/Area] 38 mL/min/{1.73_m2} Low >=60 [facility] Glucose [Mass/Vol] 146 mg/dL High 74-106 [facility] Magnesium [Mass/Vol] 1.6 mg/dL Low 1.8-2.4 [facility] Natriuretic peptide B (Bld) [Mass/Vol] 2762.0 pg/mL High <=1800.0 [facility] Comment on above: RESULTS CALLED TO CLARITZA SELLERS RN @BY Alla Venegas at 0557 Potassium [Moles/Vol] 4.1 mmol/L 3.5-5.1 [facility] Protein [Mass/Vol] 6.8 g/dL 6.4-8.2 [facility] Sodium [Moles/Vol] 141 mmol/L 136-145 [facility] Urea nitrogen [Mass/Vol] 49.0 mg/dL High 7.0-18.0 [facility] Urea nitrogen/Creatinine [Mass ratio] 31.0 mg/mg [facility] Laboratory - Hematology and Cell countson 05-06-2024 Immature granulocytes/100 WBC (Bld) 0.1 % 0.0-0.5 [facility] Leukocytes [#/volume] correc gali for nucleated erythrocytes in Blood by Automated counon 05-06-2024 WBC corrected for nucl RBC Auto (Bld) [#/Vol] 6.7 10 3/uL 4.0-11.0 [facility] Lymphocytes Auto (Bld) [#/Vo l]on 05-06-2024 Lymphocytes (Bld) [#/Vol] 1.5 10 3/uL 1.2-3.8 [facility] Lymphocytes/100 WBC Auto (Bl d)on 05-06-2024 Lymphocytes/100 WBC (Bld) 21.8 % 20.5-60.0 [facility] MCH Auto (RBC) [Entitic mass ]on 05-06-2024 MCH (RBC) [Entitic mass] 29.0 pg 26.7-34.0 [facility] MCHC Auto (RBC) [Mass/Vol]on 05-06-2024 MCHC (RBC) [Mass/Vol] 32.1 g/dL 29.9-35.2 [facility] MCV Auto (RBC) [Entitic vol] on 05-06-2024 MCV (RBC) [Entitic vol] 90.3 fL 81.0-99.0 [facility] Monocytes Auto (Bld) [#/Vol] on 05-06-2024 Monocytes (Bld) [#/Vol] 0.7 10 3/uL 0.3-0.8 [facility] Monocytes/100 WBC Auto (Bld) on 05-06-2024 Monocytes/100 WBC (Bld) 10.6 % 1.7-12.0 [facility] Neutrophils Auto (Bld) [#/Vo l]on 05-06-2024 Neutrophils (Bld) [#/Vol] 4.3 10 3/uL 1.4-6.5 [facility] Neutrophils/100 WBC Auto (Bl d)on 05-06-2024 Neutrophils/100 WBC (Bld) 63.9 % 43.0-75.0 [facility] No Panel Informationon 05-06 Eosinophils # (Auto) 0.2 10 3/uL 0.0-0.7 [facility] Immature Granulocyte # (Auto) 0.01 10 3/uL 0.00-0.03 [facility] Troponin I High Sensitivity 13.2 pg/mL 4.0-51.3 [facility] Comment on above: CUT-OFF POINTS HAVE [...] INFORMATION. 2762.0 pg/mL High <=1800.0 [facility] 13.2 pg/mL 4.0-51.3 [facility] 1.6 mg/dL Low 1.8-2.4 [facility] 2.5 g/dL Low 3.4-5.0 [facility] 0.2 10 3/uL 0.0-0.7 [facility] 75 U/L 46-116 [facility] 16 U/L 14-59 [facility] 11 U/L Low 15-37 [facility] 31.0 [facility] 0.01 10 3/uL 0.00-0.03 [facility] 49.0 mg/dL High 7.0-18.0 [facility] 0.1 % 0.0-0.5 [facility] 8.4 mg/dL Low 8.5-10.1 [facility] 107 mmol/L 98-107 [facility] 25.7 mmol/L 21.0-32.0 [facility] 1.58 mg/dL High 0.55-1.02 [facility] 38 Low >=60 [facility] 146 mg/dL High 74-106 [facility] 4.1 mmol/L 3.5-5.1 [facility] 141 mmol/L 136-145 [facility] 0.4 mg/dL 0.2-1.0 [facility] 6.8 g/dL 6.4-8.2 [facility] Platelet mean volume Auto (B ld) [Entitic vol]on 05-06-2024 Platelet mean volume (Bld) [Entitic vol] 11.3 fL 9.5-13.5 [facility] Platelets Auto (Bld) [#/Vol] on 05-06-2024 Platelets (Bld) [#/Vol] 146 10 3/uL Low 150-450 [facility] RBC Auto (Bld) [#/Vol]on RBC (Bld) [#/Vol] 3.83 10 6/uL Low 4.20-5.40 [facility] Serum or plasma albumin/glob ulin mass ratioon 05-06-2024 Albumin/Globulin [Mass ratio] 0.6 {ratio} [facility] Serum or plasma anion gap de terminationon 05-06-2024 Anion gap [Moles/Vol] [facility] Basophils Auto (Bld) [#/Vol] on 05-05-2024 Basophils (Bld) [#/Vol] 0.1 10 3/uL 0.0-0.1 [facility] Basophils/100 WBC Auto (Bld) on 05-05-2024 Basophils/100 WBC (Bld) 0.9 % 0.2-2.0 [facility] Eosinophils/100 WBC Auto (Bl d)on 05-05-2024 Eosinophils/100 WBC (Bld) 1.9 % 0.9-7.0 [facility] Erythrocyte distribution wid th Auto (RBC) [Ratio]on 05-05-2024 Erythrocyte distribution width (RBC) [Ratio] 13.4 % 11.0-15.0 [facility] Estimated glomerular filtrat ion rate (GFR) non- Americanon 05-05-2024 GFR/1.73 sq M.predicted among non-blacks MDRD (S/P/Bld) [Vol rate/Area] 29 mL/min/{1.73_m2} Low >=60 [facility] Globulin Calc (S) [Mass/Vol] on 05-05-2024 Globulin (S) [Mass/Vol] 4.4 g/dL [facility] Hematocrit Auto (Bld) [Volum e fraction]on 05-05-2024 Hematocrit (Bld) [Volume fraction] 33.8 % Low 36.0-48.0 [facility] Hemoglobin [Mass/volume] in Bloodon 05-05-2024 Hemoglobin (Bld) [Mass/Vol] 11.1 g/dL Low 12.0-16.0 [facility] Laboratory - Chemistry and C hemistry - challengeon 05-05-2024 Albumin [Mass/Vol] 2.6 g/dL Low 3.4-5.0 [facility] ALP [Catalytic activity/Vol] 74 U/L 46-116 [facility] ALT [Catalytic activity/Vol] 17 U/L 14-59 [facility] AST [Catalytic activity/Vol] 12 U/L Low 15-37 [facility] Bilirubin [Mass/Vol] 0.4 mg/dL 0.2-1.0 [facility] Calcium [Mass/Vol] 6.1 mg/dL Low 8.5-10.1 [facility] Chloride [Moles/Vol] 105 mmol/L 98-107 [facility] CO2 [Moles/Vol] 24.1 mmol/L 21.0-32.0 [facility] Creatinine [Mass/Vol] 1.71 mg/dL High 0.55-1.02 [facility] GFR/1.73 sq M.predicted MDRD (S/P/Bld) [Vol rate/Area] 35 mL/min/{1.73_m2} Low >=60 [facility] Glucose [Mass/Vol] 202 mg/dL High 74-106 [facility] Magnesium [Mass/Vol] 1.5 mg/dL Low 1.8-2.4 [facility] Natriuretic peptide B (Bld) [Mass/Vol] 2725.0 pg/mL High <=1800.0 [facility] Comment on above: RESULTS CALLED TO Frances Bryant (Austyn)@BY Franchesca HuynhEVENT MARKETING COORDINATOR at 0547 Potassium [Moles/Vol] 5.9 mmol/L High 3.5-5.1 [facility] Protein [Mass/Vol] 7.0 g/dL 6.4-8.2 [facility] Sodium [Moles/Vol] 139 mmol/L 136-145 [facility] Urea nitrogen [Mass/Vol] 69.0 mg/dL High 7.0-18.0 [facility] Urea nitrogen/Creatinine [Mass ratio] 40.4 mg/mg [facility] Laboratory - Hematology and Cell countson 05-05-2024 Immature granulocytes/100 WBC (Bld) 0.3 % 0.0-0.5 [facility] Leukocytes [#/volume] correc gali for nucleated erythrocytes in Blood by Automated counon 05-05-2024 WBC corrected for nucl RBC Auto (Bld) [#/Vol] 6.9 10 3/uL 4.0-11.0 [facility] Lymphocytes Auto (Bld) [#/Vo l]on 05-05-2024 Lymphocytes (Bld) [#/Vol] 1.2 10 3/uL 1.2-3.8 [facility] Lymphocytes/100 WBC Auto (Bl d)on 05-05-2024 Lymphocytes/100 WBC (Bld) 18.0 % Low 20.5-60.0 [facility] MCH Auto (RBC) [Entitic mass ]on 05-05-2024 MCH (RBC) [Entitic mass] 29.3 pg 26.7-34.0 [facility] MCHC Auto (RBC) [Mass/Vol]on 05-05-2024 MCHC (RBC) [Mass/Vol] 32.8 g/dL 29.9-35.2 [facility] MCV Auto (RBC) [Entitic vol] on 05-05-2024 MCV (RBC) [Entitic vol] 89.2 fL 81.0-99.0 [facility] Monocytes Auto (Bld) [#/Vol] on 05-05-2024 Monocytes (Bld) [#/Vol] 0.6 10 3/uL 0.3-0.8 [facility] Monocytes/100 WBC Auto (Bld) on 05-05-2024 Monocytes/100 WBC (Bld) 8.7 % 1.7-12.0 [facility] Neutrophils Auto (Bld) [#/Vo l]on 05-05-2024 Neutrophils (Bld) [#/Vol] 4.8 10 3/uL 1.4-6.5 [facility] Neutrophils/100 WBC Auto (Bl d)on 05-05-2024 Neutrophils/100 WBC (Bld) 70.2 % 43.0-75.0 [facility] No Panel Informationon 05-05 Eosinophils # (Auto) 0.1 10 3/uL 0.0-0.7 [facility] Immature Granulocyte # (Auto) 0.02 10 3/uL 0.00-0.03 [facility] Troponin I High Sensitivity 14.0 pg/mL 4.0-51.3 [facility] Comment on above: CUT-OFF POINTS HAVE [...] INFORMATION. 2725.0 pg/mL High <=1800.0 [facility] 14.0 pg/mL 4.0-51.3 [facility] 1.5 mg/dL Low 1.8-2.4 [facility] 2.6 g/dL Low 3.4-5.0 [facility] 0.1 10 3/uL 0.0-0.7 [facility] 74 U/L 46-116 [facility] 17 U/L 14-59 [facility] 12 U/L Low 15-37 [facility] 40.4 [facility] 0.02 10 3/uL 0.00-0.03 [facility] 69.0 mg/dL High 7.0-18.0 [facility] 0.3 % 0.0-0.5 [facility] 6.1 mg/dL Low 8.5-10.1 [facility] 105 mmol/L 98-107 [facility] 24.1 mmol/L 21.0-32.0 [facility] 1.71 mg/dL High 0.55-1.02 [facility] 35 Low >=60 [facility] 202 mg/dL High 74-106 [facility] 5.9 mmol/L High 3.5-5.1 [facility] 139 mmol/L 136-145 [facility] 0.4 mg/dL 0.2-1.0 [facility] 7.0 g/dL 6.4-8.2 [facility] Platelet mean volume Auto (B ld) [Entitic vol]on 05-05-2024 Platelet mean volume (Bld) [Entitic vol] 11.8 fL 9.5-13.5 [facility] Platelets Auto (Bld) [#/Vol] on 05-05-2024 Platelets (Bld) [#/Vol] 173 10 3/uL 150-450 [facility] RBC Auto (Bld) [#/Vol]on RBC (Bld) [#/Vol] 3.79 10 6/uL Low 4.20-5.40 [facility] Serum or plasma albumin/glob ulin mass ratioon 05-05-2024 Albumin/Globulin [Mass ratio] 0.6 {ratio} [facility] Serum or plasma anion gap de terminationon 05-05-2024 Anion gap [Moles/Vol] [facility] Basophils Auto (Bld) [#/Vol] on 05-04-2024 Basophils (Bld) [#/Vol] 0.1 10 3/uL 0.0-0.1 [facility] Basophils/100 WBC Auto (Bld) on 05-04-2024 Basophils/100 WBC (Bld) 0.9 % 0.2-2.0 [facility] Eosinophils/100 WBC Auto (Bl d)on 05-04-2024 Eosinophils/100 WBC (Bld) 1.7 % 0.9-7.0 [facility] Erythrocyte distribution wid th Auto (RBC) [Ratio]on 05-04-2024 Erythrocyte distribution width (RBC) [Ratio] 13.6 % 11.0-15.0 [facility] Estimated glomerular filtrat ion rate (GFR) non- Americanon 05-04-2024 GFR/1.73 sq M.predicted among non-blacks MDRD (S/P/Bld) [Vol rate/Area] 21 mL/min/{1.73_m2} Low >=60 [facility] Globulin Calc (S) [Mass/Vol] on 05-04-2024 Globulin (S) [Mass/Vol] 4.9 g/dL [facility] Hematocrit Auto (Bld) [Volum e fraction]on 05-04-2024 Hematocrit (Bld) [Volume fraction] 37.6 % 36.0-48.0 [facility] Hemoglobin [Mass/volume] in Bloodon 05-04-2024 Hemoglobin (Bld) [Mass/Vol] 12.0 g/dL 12.0-16.0 [facility] Laboratory - Chemistry and C hemistry - challengeon 05-04-2024 Bilirubin Ql (U) Negative NEGATIVE [facility] Glucose (U) [Mass/Vol] 250 mg/dL Abnormal NEGATIVE [facility] Ketones Ql (U) Negative NEGATIVE [facility] pH (U) 6.0 [pH] 5.0-9.0 [facility] Specific gravity (U) [Rel density] 1.015 1.005-1.025 [facility] Urobilinogen Qn (U) 0.2 {Meka'U}/dL 0.2-1.0 [facility] Albumin [Mass/Vol] 2.8 g/dL Low 3.4-5.0 [facility] ALP [Catalytic activity/Vol] 86 U/L 46-116 [facility] ALT [Catalytic activity/Vol] 16 U/L 14-59 [facility] Ammonia (P) [Moles/Vol] 12 umol/L 11-32 [facility] AST [Catalytic activity/Vol] 8 U/L Low 15-37 [facility] Bilirubin [Mass/Vol] 0.4 mg/dL 0.2-1.0 [facility] Calcium [Mass/Vol] 8.8 mg/dL 8.5-10.1 [facility] Chloride [Moles/Vol] 101 mmol/L 98-107 [facility] CO2 [Moles/Vol] 22.4 mmol/L 21.0-32.0 [facility] Creatinine [Mass/Vol] 2.24 mg/dL High 0.55-1.02 [facility] GFR/1.73 sq M.predicted MDRD (S/P/Bld) [Vol rate/Area] 26 mL/min/{1.73_m2} Low >=60 [facility] Glucose [Mass/Vol] 369 mg/dL High 74-106 [facility] Lactate [Moles/Vol] 1.2 mmol/L 0.4-2.0 [facility] Magnesium [Mass/Vol] 1.7 mg/dL Low 1.8-2.4 [facility] Natriuretic peptide B (Bld) [Mass/Vol] 2342.0 pg/mL High <=1800.0 [facility] Comment on above: RESULTS CALLED TO RENETTA Renteria RN @BY Andrea Long MLTat 1126 Potassium [Moles/Vol] 5.6 mmol/L High 3.5-5.1 [facility] Protein [Mass/Vol] 7.7 g/dL 6.4-8.2 [facility] Sodium [Moles/Vol] 134 mmol/L Low 136-145 [facility] T4 [Mass/Vol] 11.80 ug/dL 4.80-13.90 [facility] TSH Qn 0.933 m[IU]/L 0.358-3.740 [facility] Urea nitrogen [Mass/Vol] 86.0 mg/dL High 7.0-18.0 [facility] Comment on above: RESULTS CALLED TO RENETTA Renteria RN @BY Andrea Long MLTat 1126 Urea nitrogen/Creatinine [Mass ratio] 38.4 mg/mg [facility] Laboratory - Hematology and Cell countson 05-04-2024 Immature granulocytes/100 WBC (Bld) 0.3 % 0.0-0.5 [facility] Laboratory - Microbiology an d Antimicrobial susceptibilityOrdered By: Carl Morales on 05-04-2024 Bacteria identified Cx Nom (U) [facility] Laboratory - Specimen inform ationon 05-04-2024 Appearance (U) SLIGHTLY CLOUDY Abnormal CLEAR [facility] Color (U) YELLOW YELLOW [facility] Laboratory - Urinalysison Hyaline casts LM Ql (Urine sed) RARE [facility] Leukocyte esterase Test strip Ql (U) Negative NEGATIVE [facility] Mucus Ql (Urine sed) NONE SEEN NONE SEEN [facility] Nitrite Ql (U) Negative NEGATIVE [facility] Protein Ql (U) 100 mg/dL Abnormal NEG/TRACE [facility] Leukocytes [#/volume] correc gali for nucleated erythrocytes in Blood by Automated counon 05-04-2024 WBC corrected for nucl RBC Auto (Bld) [#/Vol] 6.9 10 3/uL 4.0-11.0 [facility] Lymphocytes Auto (Bld) [#/Vo l]on 05-04-2024 Lymphocytes (Bld) [#/Vol] 1.2 10 3/uL 1.2-3.8 [facility] Lymphocytes/100 WBC Auto (Bl d)on 05-04-2024 Lymphocytes/100 WBC (Bld) 17.8 % Low 20.5-60.0 [facility] MCH Auto (RBC) [Entitic mass ]on 05-04-2024 MCH (RBC) [Entitic mass] 29.3 pg 26.7-34.0 [facility] MCHC Auto (RBC) [Mass/Vol]on 05-04-2024 MCHC (RBC) [Mass/Vol] 31.9 g/dL 29.9-35.2 [facility] MCV Auto (RBC) [Entitic vol] on 05-04-2024 MCV (RBC) [Entitic vol] 91.9 fL 81.0-99.0 [facility] Monocytes Auto (Bld) [#/Vol] on 05-04-2024 Monocytes (Bld) [#/Vol] 0.7 10 3/uL 0.3-0.8 [facility] Monocytes/100 WBC Auto (Bld) on 05-04-2024 Monocytes/100 WBC (Bld) 10.4 % 1.7-12.0 [facility] Neutrophils Auto (Bld) [#/Vo l]on 05-04-2024 Neutrophils (Bld) [#/Vol] 4.8 10 3/uL 1.4-6.5 [facility] Neutrophils/100 WBC Auto (Bl d)on 05-04-2024 Neutrophils/100 WBC (Bld) 68.9 % 43.0-75.0 [facility] No Panel Informationon 05-04 Acetone Level Negative NEGATIVE [facility] Negative NEGATIVE [facility] Urine Bacteria MODERATE #/HPF Abnormal NONE SEEN [facility] Urine Culture Reflexed ALREADY ORDERED [facility] Urine Microscopic Review YES [facility] Urine Occult Blood MODERATE Abnormal NEGATIVE [facility] Urine Other Casts SEEN #/LPF Abnormal NONE SEEN [facility] Urine Other Crystals None Seen #/HPF None Seen [facility] Urine RBC 2-5 #/HPF Abnormal 0-2 [facility] Urine Squamous Epithelial Cells FEW #/LPF Abnormal NONE/RARE [facility] Urine WBC 2-5 #/HPF Abnormal NONE SEEN [facility] ALREADY ORDERED [facility] YES [facility] SEEN #/LPF Abnormal NONE SEEN [facility] Negative NEGATIVE [facility] None Seen #/HPF None Seen [facility] MODERATE Abnormal NEGATIVE [facility] MODERATE #/HPF Abnormal NONE SEEN [facility] SLIGHTLY CLOUDY Abnormal CLEAR [facility] RARE [facility] YELLOW YELLOW [facility] NONE SEEN NONE SEEN [facility] 250 mg/dL Abnormal NEGATIVE [facility] 2-5 #/HPF Abnormal NONE SEEN [facility] FEW #/LPF Abnormal NONE/RARE [facility] 6.0 5.0-9.0 [facility] 100 mg/dL Abnormal NEG/TRACE [facility] 1.015 1.005-1.025 [facility] 0.2 EU/dL 0.2-1.0 [facility] Eosinophils # (Auto) 0.1 10 3/uL 0.0-0.7 [facility] Immature Granulocyte # (Auto) 0.02 10 3/uL 0.00-0.03 [facility] Troponin I High Sensitivity 10.5 pg/mL 4.0-51.3 [facility] Comment on above: CUT-OFF POINTS HAVE [...] CO2 38.5 mm[Hg] Low 40.0-52.0 [facility] Venous Blood pH 7.353 7.330-7.430 [facility] 0.933 u[iU]/mL 0.358-3.740 [facility] 11.80 ug/dL 4.80-13.90 [facility] 1.7 mg/dL Low 1.8-2.4 [facility] 2342.0 pg/mL High <=1800.0 [facility] 1.2 mmol/L 0.4-2.0 [facility] 10.5 pg/mL 4.0-51.3 [facility] 12 umol/L 11-32 [facility] 38.5 mm[Hg] Low 40.0-52.0 [facility] 7.353 7.330-7.430 [facility] 2.8 g/dL Low 3.4-5.0 [facility] 0.1 10 3/uL 0.0-0.7 [facility] 86 U/L 46-116 [facility] 16 U/L 14-59 [facility] 8 U/L Low 15-37 [facility] 38.4 [facility] 0.02 10 3/uL 0.00-0.03 [facility] 86.0 mg/dL High 7.0-18.0 [facility] 0.3 % 0.0-0.5 [facility] 8.8 mg/dL 8.5-10.1 [facility] 101 mmol/L 98-107 [facility] 22.4 mmol/L 21.0-32.0 [facility] 2.24 mg/dL High 0.55-1.02 [facility] 26 Low >=60 [facility] 369 mg/dL High 74-106 [facility] 5.6 mmol/L High 3.5-5.1 [facility] 134 mmol/L Low 136-145 [facility] 0.4 mg/dL 0.2-1.0 [facility] 7.7 g/dL 6.4-8.2 [facility] No Panel InformationOrdered By: LAMINE SINGH on 05-04-2024 Blood Culture 1 [facility] Platelet mean volume Auto (B ld) [Entitic vol]on 05-04-2024 Platelet mean volume (Bld) [Entitic vol] 11.4 fL 9.5-13.5 [facility] Platelets Auto (Bld) [#/Vol] on 05-04-2024 Platelets (Bld) [#/Vol] 160 10 3/uL 150-450 [facility] RBC Auto (Bld) [#/Vol]on RBC (Bld) [#/Vol] 4.09 10 6/uL Low 4.20-5.40 [facility] Serum or plasma albumin/glob ulin mass ratioon 05-04-2024 Albumin/Globulin [Mass ratio] 0.6 {ratio} [facility] Serum or plasma anion gap de terminationon 05-04-2024 Anion gap [Moles/Vol] [facility]2 [facility] Basophils Auto (Bld) [#/Vol] on 05-01-2024 Basophils (Bld) [#/Vol] 0.1 10 3/uL 0.0-0.1 [facility] Basophils/100 WBC Auto (Bld) on 05-01-2024 Basophils/100 WBC (Bld) 0.7 % 0.2-2.0 [facility] Eosinophils/100 WBC Auto (Bl d)on 05-01-2024 Eosinophils/100 WBC (Bld) 2.3 % 0.9-7.0 [facility] Erythrocyte distribution wid th Auto (RBC) [Ratio]on 05-01-2024 Erythrocyte distribution width (RBC) [Ratio] 13.6 % 11.0-15.0 [facility] Estimated glomerular filtrat ion rate (GFR) non- Americanon 05-01-2024 GFR/1.73 sq M.predicted among non-blacks MDRD (S/P/Bld) [Vol rate/Area] 22 mL/min/{1.73_m2} Low >=60 [facility] Globulin Calc (S) [Mass/Vol] on 05-01-2024 Globulin (S) [Mass/Vol] 4.4 g/dL [facility] Hematocrit Auto (Bld) [Volum e fraction]on 05-01-2024 Hematocrit (Bld) [Volume fraction] 37.5 % 36.0-48.0 [facility] Hemoglobin [Mass/volume] in Bloodon 05-01-2024 Hemoglobin (Bld) [Mass/Vol] 12.1 g/dL 12.0-16.0 [facility] Laboratory - Chemistry and C hemistry - challengeon 05-01-2024 Calcium [Mass/Vol] 9.2 mg/dL 8.5-10.1 [facility] Chloride [Moles/Vol] 104 mmol/L 98-107 [facility] CO2 [Moles/Vol] 23.2 mmol/L 21.0-32.0 [facility] Creatinine [Mass/Vol] 2.14 mg/dL High 0.55-1.02 [facility] GFR/1.73 sq M.predicted MDRD (S/P/Bld) [Vol rate/Area] 27 mL/min/{1.73_m2} Low >=60 [facility] Glucose [Mass/Vol] 220 mg/dL High 74-106 [facility] Potassium [Moles/Vol] 5.3 mmol/L High 3.5-5.1 [facility] Sodium [Moles/Vol] 134 mmol/L Low 136-145 [facility] Urea nitrogen [Mass/Vol] 87.0 mg/dL High 7.0-18.0 [facility] Comment on above: RESULTS CALLED TO Klaus Michaels RN @BY Sury French [phone] Urea nitrogen/Creatinine [Mass ratio] 40.7 mg/mg [facility] Albumin [Mass/Vol] 2.8 g/dL Low 3.4-5.0 [facility] ALP [Catalytic activity/Vol] 80 U/L 46-116 [facility] ALT [Catalytic activity/Vol] 16 U/L 14-59 [facility] AST [Catalytic activity/Vol] 11 U/L Low 15-37 [facility] Bilirubin [Mass/Vol] 0.4 mg/dL 0.2-1.0 [facility] Natriuretic peptide B (Bld) [Mass/Vol] 1624.0 pg/mL <=1800.0 [facility] Protein [Mass/Vol] 7.2 g/dL 6.4-8.2 [facility] Laboratory - Hematology and Cell countson 05-01-2024 Immature granulocytes/100 WBC (Bld) 0.1 % 0.0-0.5 [facility] Leukocytes [#/volume] correc gali for nucleated erythrocytes in Blood by Automated counon 05-01-2024 WBC corrected for nucl RBC Auto (Bld) [#/Vol] 7.4 10 3/uL 4.0-11.0 [facility] Lymphocytes Auto (Bld) [#/Vo l]on 05-01-2024 Lymphocytes (Bld) [#/Vol] 2.2 10 3/uL 1.2-3.8 [facility] Lymphocytes/100 WBC Auto (Bl d)on 05-01-2024 Lymphocytes/100 WBC (Bld) 29.4 % 20.5-60.0 [facility] MCH Auto (RBC) [Entitic mass ]on 05-01-2024 MCH (RBC) [Entitic mass] 29.2 pg 26.7-34.0 [facility] MCHC Auto (RBC) [Mass/Vol]on 05-01-2024 MCHC (RBC) [Mass/Vol] 32.3 g/dL 29.9-35.2 [facility] MCV Auto (RBC) [Entitic vol] on 05-01-2024 MCV (RBC) [Entitic vol] 90.4 fL 81.0-99.0 [facility] Monocytes Auto (Bld) [#/Vol] on 05-01-2024 Monocytes (Bld) [#/Vol] 0.9 10 3/uL High 0.3-0.8 [facility] Monocytes/100 WBC Auto (Bld) on 05-01-2024 Monocytes/100 WBC (Bld) 11.5 % 1.7-12.0 [facility] Neutrophils Auto (Bld) [#/Vo l]on 05-01-2024 Neutrophils (Bld) [#/Vol] 4.1 10 3/uL 1.4-6.5 [facility] Neutrophils/100 WBC Auto (Bl d)on 05-01-2024 Neutrophils/100 WBC (Bld) 56.0 % 43.0-75.0 [facility] No Panel Informationon 05-01 40.7 [facility] 87.0 mg/dL High 7.0-18.0 [facility] 9.2 mg/dL 8.5-10.1 [facility] 104 mmol/L 98-107 [facility] 23.2 mmol/L 21.0-32.0 [facility] 2.14 mg/dL High 0.55-1.02 [facility] 27 Low >=60 [facility] 220 mg/dL High 74-106 [facility] 5.3 mmol/L High 3.5-5.1 [facility] 134 mmol/L Low 136-145 [facility] Eosinophils # (Auto) 0.2 10 3/uL 0.0-0.7 [facility] Immature Granulocyte # (Auto) 0.01 10 3/uL 0.00-0.03 [facility] 1624.0 pg/mL <=1800.0 [facility] 2.8 g/dL Low 3.4-5.0 [facility] 0.2 10 3/uL 0.0-0.7 [facility] 80 U/L 46-116 [facility] 16 U/L 14-59 [facility] 11 U/L Low 15-37 [facility] 0.01 10 3/uL 0.00-0.03 [facility] 0.1 % 0.0-0.5 [facility] 0.4 mg/dL 0.2-1.0 [facility] 7.2 g/dL 6.4-8.2 [facility] Platelet mean volume Auto (B ld) [Entitic vol]on 05-01-2024 Platelet mean volume (Bld) [Entitic vol] 11.6 fL 9.5-13.5 [facility] Platelets Auto (Bld) [#/Vol] on 05-01-2024 Platelets (Bld) [#/Vol] 151 10 3/uL 150-450 [facility] RBC Auto (Bld) [#/Vol]on RBC (Bld) [#/Vol] 4.15 10 6/uL Low 4.20-5.40 [facility] Serum or plasma albumin/glob ulin mass ratioon 05-01-2024 Albumin/Globulin [Mass ratio] 0.6 {ratio} [facility] Serum or plasma anion gap de terminationon 05-01-2024 Anion gap [Moles/Vol] 12.1 mmol/L [facility] Basophils Auto (Bld) [#/Vol] on 04-30-2024 Basophils (Bld) [#/Vol] 0.1 10 3/uL 0.0-0.1 [facility] Basophils/100 WBC Auto (Bld) on 04-30-2024 Basophils/100 WBC (Bld) 0.9 % 0.2-2.0 [facility] Eosinophils/100 WBC Auto (Bl d)on 04-30-2024 Eosinophils/100 WBC (Bld) 2.4 % 0.9-7.0 [facility] Erythrocyte distribution wid th Auto (RBC) [Ratio]on 04-30-2024 Erythrocyte distribution width (RBC) [Ratio] 13.5 % 11.0-15.0 [facility] Estimated glomerular filtrat ion rate (GFR) non- Americanon 04-30-2024 GFR/1.73 sq M.predicted among non-blacks MDRD (S/P/Bld) [Vol rate/Area] 15 mL/min/{1.73_m2} Low >=60 [facility] Fibrin D-dimer [Presence] in Platelet poor plasma by Latex agglutinationon 04-30-2024 Fibrin D-dimer LA Ql (PPP) 0.24 mg/L FEU <=0.59 [facility] Comment on above: Increases in D-Dimer [...] [Volume fraction] 38.6 % 36.0-48.0 [facility] Hemoglobin [Mass/volume] in Bloodon 04-30-2024 Hemoglobin (Bld) [Mass/Vol] 12.5 g/dL 12.0-16.0 [facility] Laboratory - Chemistry and C hemistry - challengeon 04-30-2024 Calcium [Mass/Vol] 9.0 mg/dL 8.5-10.1 [facility] Chloride [Moles/Vol] 100 mmol/L 98-107 [facility] CO2 [Moles/Vol] 24.4 mmol/L 21.0-32.0 [facility] Creatinine [Mass/Vol] 3.02 mg/dL High 0.55-1.02 [facility] GFR/1.73 sq M.predicted MDRD (S/P/Bld) [Vol rate/Area] 18 mL/min/{1.73_m2} Low >=60 [facility] Glucose [Mass/Vol] 271 mg/dL High 74-106 [facility] Magnesium [Mass/Vol] 1.8 mg/dL 1.8-2.4 [facility] Natriuretic peptide B (Bld) [Mass/Vol] 1485.0 pg/mL <=1800.0 [facility] Potassium [Moles/Vol] 5.3 mmol/L High 3.5-5.1 [facility] Sodium [Moles/Vol] 133 mmol/L Low 136-145 [facility] Urea nitrogen [Mass/Vol] 99.0 mg/dL High 7.0-18.0 [facility] Comment on above: RESULTS CALLED TO Yoel ButtsRN)@BY Franchesca Huynh MLT at 0603 Urea nitrogen/Creatinine [Mass ratio] 32.8 mg/mg [facility] Laboratory - Hematology and Cell countson 04-30-2024 Immature granulocytes/100 WBC (Bld) 0.1 % 0.0-0.5 [facility] Leukocytes [#/volume] correc gali for nucleated erythrocytes in Blood by Automated counon 04-30-2024 WBC corrected for nucl RBC Auto (Bld) [#/Vol] 7.5 10 3/uL 4.0-11.0 [facility] Lymphocytes Auto (Bld) [#/Vo l]on 04-30-2024 Lymphocytes (Bld) [#/Vol] 2.1 10 3/uL 1.2-3.8 [facility] Lymphocytes/100 WBC Auto (Bl d)on 04-30-2024 Lymphocytes/100 WBC (Bld) 27.8 % 20.5-60.0 [facility] MCH Auto (RBC) [Entitic mass ]on 04-30-2024 MCH (RBC) [Entitic mass] 29.6 pg 26.7-34.0 [facility] MCHC Auto (RBC) [Mass/Vol]on 04-30-2024 MCHC (RBC) [Mass/Vol] 32.4 g/dL 29.9-35.2 [facility] MCV Auto (RBC) [Entitic vol] on 04-30-2024 MCV (RBC) [Entitic vol] 91.5 fL 81.0-99.0 [facility] Monocytes Auto (Bld) [#/Vol] on 04-30-2024 Monocytes (Bld) [#/Vol] 0.8 10 3/uL 0.3-0.8 [facility] Monocytes/100 WBC Auto (Bld) on 04-30-2024 Monocytes/100 WBC (Bld) 10.0 % 1.7-12.0 [facility] Neutrophils Auto (Bld) [#/Vo l]on 04-30-2024 Neutrophils (Bld) [#/Vol] 4.4 10 3/uL 1.4-6.5 [facility] Neutrophils/100 WBC Auto (Bl d)on 04-30-2024 Neutrophils/100 WBC (Bld) 58.8 % 43.0-75.0 [facility] No Panel Informationon 04-30 Troponin I High Sensitivity 12.6 pg/mL 4.0-51.3 [facility] Comment on above: CUT-OFF POINTS HAVE [...] CLINICAL INFORMATION. 1.8 mg/dL 1.8-2.4 [facility] 1485.0 pg/mL <=1800.0 [facility] 12.6 pg/mL 4.0-51.3 [facility] 32.8 [facility] 99.0 mg/dL High 7.0-18.0 [facility] 9.0 mg/dL 8.5-10.1 [facility] 100 mmol/L 98-107 [facility] 24.4 mmol/L 21.0-32.0 [facility] 3.02 mg/dL High 0.55-1.02 [facility] 18 Low >=60 [facility] 271 mg/dL High 74-106 [facility] 5.3 mmol/L High 3.5-5.1 [facility] 133 mmol/L Low 136-145 [facility] Eosinophils # (Auto) 0.2 10 3/uL 0.0-0.7 [facility] Immature Granulocyte # (Auto) 0.01 10 3/uL 0.00-0.03 [facility] 0.2 10 3/uL 0.0-0.7 [facility] 0.01 10 3/uL 0.00-0.03 [facility] 0.1 % 0.0-0.5 [facility] Platelet mean volume Auto (B ld) [Entitic vol]on 04-30-2024 Platelet mean volume (Bld) [Entitic vol] 12.2 fL 9.5-13.5 [facility] Platelets Auto (Bld) [#/Vol] on 04-30-2024 Platelets (Bld) [#/Vol] 221 10 3/uL 150-450 [facility] RBC Auto (Bld) [#/Vol]on RBC (Bld) [#/Vol] 4.22 10 6/uL 4.20-5.40 [facility] Serum or plasma anion gap de terminationon 04-30-2024 Anion gap [Moles/Vol] 13.9 mmol/L [facility] Basophils Auto (Bld) [#/Vol] on 03-28-2024 Basophils (Bld) [#/Vol] 0.1 10 3/uL 0.0-0.1 [facility] Basophils/100 WBC Auto (Bld) on 03-28-2024 Basophils/100 WBC (Bld) 0.9 % 0.2-2.0 [facility] Eosinophils/100 WBC Auto (Bl d)on 03-28-2024 Eosinophils/100 WBC (Bld) 1.7 % 0.9-7.0 [facility] Erythrocyte distribution wid th Auto (RBC) [Ratio]on 03-28-2024 Erythrocyte distribution width (RBC) [Ratio] 14.2 % 11.0-15.0 [facility] Estimated glomerular filtrat ion rate (GFR) non- Americanon 03-28-2024 GFR/1.73 sq M.predicted among non-blacks MDRD (S/P/Bld) [Vol rate/Area] 39 mL/min/{1.73_m2} Low >=60 [facility] Globulin Calc (S) [Mass/Vol] on 03-28-2024 Globulin (S) [Mass/Vol] 4.8 g/dL [facility] Hematocrit Auto (Bld) [Volum e fraction]on 03-28-2024 Hematocrit (Bld) [Volume fraction] 40.0 % 36.0-48.0 [facility] Hemoglobin [Mass/volume] in Bloodon 03-28-2024 Hemoglobin (Bld) [Mass/Vol] 12.6 g/dL 12.0-16.0 [facility] Laboratory - Chemistry and C hemistry - challengeon 03-28-2024 Albumin [Mass/Vol] 2.5 g/dL Low 3.4-5.0 [facility] ALP [Catalytic activity/Vol] 93 U/L 46-116 [facility] ALT [Catalytic activity/Vol] 9 U/L Low 14-59 [facility] AST [Catalytic activity/Vol] 10 U/L Low 15-37 [facility] Bilirubin [Mass/Vol] 0.9 mg/dL 0.2-1.0 [facility] Calcium [Mass/Vol] 8.5 mg/dL 8.5-10.1 [facility] Chloride [Moles/Vol] 96 mmol/L Low 98-107 [facility] CO2 [Moles/Vol] 27.1 mmol/L 21.0-32.0 [facility] Creatinine [Mass/Vol] 1.33 mg/dL High 0.55-1.02 [facility] GFR/1.73 sq M.predicted MDRD (S/P/Bld) [Vol rate/Area] 47 mL/min/{1.73_m2} Low >=60 [facility] Glucose [Mass/Vol] 261 mg/dL High 74-106 [facility] Magnesium [Mass/Vol] 1.8 mg/dL 1.8-2.4 [facility] Natriuretic peptide B (Bld) [Mass/Vol] 3338.0 pg/mL High <=1800.0 [facility] Comment on above: RESULTS CALLED TO Claritza Sellers (RN)@BY Franchesca Huynh MLT at 0554 Potassium [Moles/Vol] 3.8 mmol/L 3.5-5.1 [facility] Protein [Mass/Vol] 7.3 g/dL 6.4-8.2 [facility] Sodium [Moles/Vol] 133 mmol/L Low 136-145 [facility] Urea nitrogen [Mass/Vol] 36.0 mg/dL High 7.0-18.0 [facility] Urea nitrogen/Creatinine [Mass ratio] 27.1 mg/mg [facility] Laboratory - Hematology and Cell countson 03-28-2024 Immature granulocytes/100 WBC (Bld) 0.4 % 0.0-0.5 [facility] Leukocytes [#/volume] correc gali for nucleated erythrocytes in Blood by Automated counon 03-28-2024 WBC corrected for nucl RBC Auto (Bld) [#/Vol] 8.4 10 3/uL 4.0-11.0 [facility] Lymphocytes Auto (Bld) [#/Vo l]on 03-28-2024 Lymphocytes (Bld) [#/Vol] 1.8 10 3/uL 1.2-3.8 [facility] Lymphocytes/100 WBC Auto (Bl d)on 03-28-2024 Lymphocytes/100 WBC (Bld) 21.4 % 20.5-60.0 [facility] MCH Auto (RBC) [Entitic mass ]on 03-28-2024 MCH (RBC) [Entitic mass] 29.0 pg 26.7-34.0 [facility] MCHC Auto (RBC) [Mass/Vol]on 03-28-2024 MCHC (RBC) [Mass/Vol] 31.5 g/dL 29.9-35.2 [facility] MCV Auto (RBC) [Entitic vol] on 03-28-2024 MCV (RBC) [Entitic vol] 92.0 fL 81.0-99.0 [facility] Monocytes Auto (Bld) [#/Vol] on 03-28-2024 Monocytes (Bld) [#/Vol] 0.8 10 3/uL 0.3-0.8 [facility] Monocytes/100 WBC Auto (Bld) on 03-28-2024 Monocytes/100 WBC (Bld) 9.7 % 1.7-12.0 [facility] Neutrophils Auto (Bld) [#/Vo l]on 03-28-2024 Neutrophils (Bld) [#/Vol] 5.6 10 3/uL 1.4-6.5 [facility] Neutrophils/100 WBC Auto (Bl d)on 03-28-2024 Neutrophils/100 WBC (Bld) 65.9 % 43.0-75.0 [facility] No Panel Informationon 03-28 Eosinophils # (Auto) 0.1 10 3/uL 0.0-0.7 [facility] Immature Granulocyte # (Auto) 0.03 10 3/uL 0.00-0.03 [facility] 3338.0 pg/mL High <=1800.0 [facility] 1.8 mg/dL 1.8-2.4 [facility] 2.5 g/dL Low 3.4-5.0 [facility] 0.1 10 3/uL 0.0-0.7 [facility] 93 U/L 46-116 [facility] 9 U/L Low 14-59 [facility] 10 U/L Low 15-37 [facility] 27.1 [facility] 0.03 10 3/uL 0.00-0.03 [facility] 36.0 mg/dL High 7.0-18.0 [facility] 0.4 % 0.0-0.5 [facility] 8.5 mg/dL 8.5-10.1 [facility] 96 mmol/L Low 98-107 [facility] 27.1 mmol/L 21.0-32.0 [facility] 1.33 mg/dL High 0.55-1.02 [facility] 47 Low >=60 [facility] 261 mg/dL High 74-106 [facility] 3.8 mmol/L 3.5-5.1 [facility] 133 mmol/L Low 136-145 [facility] 0.9 mg/dL 0.2-1.0 [facility] 7.3 g/dL 6.4-8.2 [facility] Platelet mean volume Auto (B ld) [Entitic vol]on 03-28-2024 Platelet mean volume (Bld) [Entitic vol] 10.5 fL 9.5-13.5 [facility] Platelets Auto (Bld) [#/Vol] on 03-28-2024 Platelets (Bld) [#/Vol] 197 10 3/uL 150-450 [facility] RBC Auto (Bld) [#/Vol]on RBC (Bld) [#/Vol] 4.35 10 6/uL 4.20-5.40 [facility] Serum or plasma albumin/glob ulin mass ratioon 03-28-2024 Albumin/Globulin [Mass ratio] 0.5 {ratio} [facility] Serum or plasma anion gap de terminationon 03-28-2024 Anion gap [Moles/Vol] [facility]7 [facility] Auto (Bld) [#/Vol] on 03-27-2024 Basophils (Bld) [#/Vol] 0.1 10 3/uL 0.0-0.1 [facility] Basophils/100 WBC Auto (Bld) on 03-27-2024 Basophils/100 WBC (Bld) 0.8 % 0.2-2.0 [facility] Eosinophils/100 WBC Auto (Bl d)on 03-27-2024 Eosinophils/100 WBC (Bld) 1.1 % 0.9-7.0 [facility] Erythrocyte distribution wid th Auto (RBC) [Ratio]on 03-27-2024 Erythrocyte distribution width (RBC) [Ratio] 14.2 % 11.0-15.0 [facility] Estimated glomerular filtrat ion rate (GFR) non- Americanon 03-27-2024 GFR/1.73 sq M.predicted among non-blacks MDRD (S/P/Bld) [Vol rate/Area] 44 mL/min/{1.73_m2} Low >=60 [facility] Globulin Calc (S) [Mass/Vol] on 03-27-2024 Globulin (S) [Mass/Vol] 4.6 g/dL [facility] Glucose mean value [Mass/vol ume] in Blood Estimated from glycated hemoglobinon 03-27-2024 Average glucose Estimated from glycated hemoglobin (Bld) [Mass/Vol] 275 mg/dL [facility] Hematocrit Auto (Bld) [Volum e fraction]on 03-27-2024 Hematocrit (Bld) [Volume fraction] 37.4 % 36.0-48.0 [facility] Hemoglobin [Mass/volume] in Bloodon 03-27-2024 Hemoglobin (Bld) [Mass/Vol] 12.1 g/dL 12.0-16.0 [facility] Laboratory - Chemistry and C hemistry - challengeon 03-27-2024 Albumin [Mass/Vol] 2.6 g/dL Low 3.4-5.0 [facility] ALP [Catalytic activity/Vol] 89 U/L 46-116 [facility] ALT [Catalytic activity/Vol] 12 U/L Low 14-59 [facility] AST [Catalytic activity/Vol] 9 U/L Low 15-37 [facility] Bilirubin [Mass/Vol] 0.9 mg/dL 0.2-1.0 [facility] Calcium [Mass/Vol] 9.1 mg/dL 8.5-10.1 [facility] Chloride [Moles/Vol] 99 mmol/L 98-107 [facility] CO2 [Moles/Vol] 28.8 mmol/L 21.0-32.0 [facility] Creatinine [Mass/Vol] 1.19 mg/dL High 0.55-1.02 [facility] GFR/1.73 sq M.predicted MDRD (S/P/Bld) [Vol rate/Area] 53 mL/min/{1.73_m2} Low >=60 [facility] Glucose [Mass/Vol] 273 mg/dL High 74-106 [facility] Magnesium [Mass/Vol] 1.7 mg/dL Low 1.8-2.4 [facility] Natriuretic peptide B (Bld) [Mass/Vol] 4572.0 pg/mL High <=1800.0 [facility] Comment on above: RESULTS CALLED TO SA RA MIGUEL RN @BY Alla Kevin [id number] Potassium [Moles/Vol] 3.6 mmol/L 3.5-5.1 [facility] Protein [Mass/Vol] 7.2 g/dL 6.4-8.2 [facility] Sodium [Moles/Vol] 135 mmol/L Low 136-145 [facility] Urea nitrogen [Mass/Vol] 34.0 mg/dL High 7.0-18.0 [facility] Urea nitrogen/Creatinine [Mass ratio] 28.6 mg/mg [facility] Laboratory - Hematology and Cell countson 03-27-2024 HbA1c (Bld) [Mass fraction] 11.2 % High 4.5-6.2 [facility] Comment on above: ADA RECOMMENDED LIMI T 4.0 - 6.0ADA THERAPEUTIC TARGET < 7.0ACTION SUGGESTED> 7.0 Immature granulocytes/100 WBC (Bld) 0.3 % 0.0-0.5 [facility] Leukocytes [#/volume] correc gali for nucleated erythrocytes in Blood by Automated counon 03-27-2024 WBC corrected for nucl RBC Auto (Bld) [#/Vol] 9.7 10 3/uL 4.0-11.0 [facility] Lymphocytes Auto (Bld) [#/Vo l]on 03-27-2024 Lymphocytes (Bld) [#/Vol] 1.3 10 3/uL 1.2-3.8 [facility] Lymphocytes/100 WBC Auto (Bl d)on 03-27-2024 Lymphocytes/100 WBC (Bld) 13.3 % Low 20.5-60.0 [facility] MCH Auto (RBC) [Entitic mass ]on 03-27-2024 MCH (RBC) [Entitic mass] 29.2 pg 26.7-34.0 [facility] MCHC Auto (RBC) [Mass/Vol]on 03-27-2024 MCHC (RBC) [Mass/Vol] 32.4 g/dL 29.9-35.2 [facility] MCV Auto (RBC) [Entitic vol] on 03-27-2024 MCV (RBC) [Entitic vol] 90.3 fL 81.0-99.0 [facility] Monocytes Auto (Bld) [#/Vol] on 03-27-2024 Monocytes (Bld) [#/Vol] 0.8 10 3/uL 0.3-0.8 [facility] Monocytes/100 WBC Auto (Bld) on 03-27-2024 Monocytes/100 WBC (Bld) 8.4 % 1.7-12.0 [facility] Neutrophils Auto (Bld) [#/Vo l]on 03-27-2024 Neutrophils (Bld) [#/Vol] 7.4 10 3/uL High 1.4-6.5 [facility] Neutrophils/100 WBC Auto (Bl d)on 03-27-2024 Neutrophils/100 WBC (Bld) 76.1 % High 43.0-75.0 [facility] No Panel Informationon 03-27 Eosinophils # (Auto) 0.1 10 3/uL 0.0-0.7 [facility] Immature Granulocyte # (Auto) 0.03 10 3/uL 0.00-0.03 [facility] 4572.0 pg/mL High <=1800.0 [facility] 1.7 mg/dL Low 1.8-2.4 [facility] 11.2 % High 4.5-6.2 [facility] 2.6 g/dL Low 3.4-5.0 [facility] 0.1 10 3/uL 0.0-0.7 [facility] 89 U/L 46-116 [facility] 12 U/L Low 14-59 [facility] 9 U/L Low 15-37 [facility] 28.6 [facility] 0.03 10 3/uL 0.00-0.03 [facility] 34.0 mg/dL High 7.0-18.0 [facility] 0.3 % 0.0-0.5 [facility] 9.1 mg/dL 8.5-10.1 [facility] 99 mmol/L 98-107 [facility] 28.8 mmol/L 21.0-32.0 [facility] 1.19 mg/dL High 0.55-1.02 [facility] 53 Low >=60 [facility] 273 mg/dL High 74-106 [facility] 3.6 mmol/L 3.5-5.1 [facility] 135 mmol/L Low 136-145 [facility] 0.9 mg/dL 0.2-1.0 [facility] 7.2 g/dL 6.4-8.2 [facility] Platelet mean volume Auto (B ld) [Entitic vol]on 03-27-2024 Platelet mean volume (Bld) [Entitic vol] 10.6 fL 9.5-13.5 [facility] Platelets Auto (Bld) [#/Vol] on 03-27-2024 Platelets (Bld) [#/Vol] 204 10 3/uL 150-450 [facility] RBC Auto (Bld) [#/Vol]on RBC (Bld) [#/Vol] 4.14 10 6/uL Low 4.20-5.40 [facility] Serum or plasma albumin/glob ulin mass ratioon 03-27-2024 Albumin/Globulin [Mass ratio] 0.6 {ratio} [facility] Serum or plasma anion gap de terminationon 03-27-2024 Anion gap [Moles/Vol] 10.8 mmol/L Fi [facility] Basophils Auto (Bld) [#/Vol] on 03-26-2024 Basophils (Bld) [#/Vol] 0.1 10 3/uL 0.0-0.1 [facility] Basophils/100 WBC Auto (Bld) on 03-26-2024 Basophils/100 WBC (Bld) 0.8 % 0.2-2.0 [facility] Eosinophils/100 WBC Auto (Bl d)on 03-26-2024 Eosinophils/100 WBC (Bld) 1.2 % 0.9-7.0 [facility] Erythrocyte distribution wid th Auto (RBC) [Ratio]on 03-26-2024 Erythrocyte distribution width (RBC) [Ratio] 14.5 % 11.0-15.0 [facility] Estimated glomerular filtrat ion rate (GFR) non- Americanon 03-26-2024 GFR/1.73 sq M.predicted among non-blacks MDRD (S/P/Bld) [Vol rate/Area] 46 mL/min/{1.73_m2} Low >=60 [facility] Glucose mean value [Mass/vol ume] in Blood Estimated from glycated hemoglobinon 05-15-2024 Average glucose Estimated from glycated hemoglobin (Bld) [Mass/Vol] 275 mg/dL [facility] Hematocrit Auto (Bld) [Volum e fraction]on 03-26-2024 Hematocrit (Bld) [Volume fraction] 40.1 % 36.0-48.0 [facility] Hemoglobin [Mass/volume] in Bloodon 03-26-2024 Hemoglobin (Bld) [Mass/Vol] 12.7 g/dL 12.0-16.0 [facility] Laboratory - Chemistry and C hemistry - challengeon 03-26-2024 Calcium [Mass/Vol] 9.1 mg/dL 8.5-10.1 [facility] Chloride [Moles/Vol] 102 mmol/L 98-107 [facility] CO2 [Moles/Vol] 28.5 mmol/L 21.0-32.0 [facility] Creatinine [Mass/Vol] 1.14 mg/dL High 0.55-1.02 [facility] Free T4 [Mass/Vol] 1.29 ng/dL 0.76-1.46 [facility] GFR/1.73 sq M.predicted MDRD (S/P/Bld) [Vol rate/Area] 56 mL/min/{1.73_m2} Low >=60 [facility] Glucose [Mass/Vol] 246 mg/dL High 74-106 [facility] Natriuretic peptide B (Bld) [Mass/Vol] 2890.0 pg/mL High <=1800.0 [facility] Comment on above: RESULTS CALLED TO YOEL ROBIN RN @BY Alla Kunz 0556 Potassium [Moles/Vol] 4.3 mmol/L 3.5-5.1 [facility] Sodium [Moles/Vol] 136 mmol/L 136-145 [facility] TSH Qn 6.001 m[IU]/L High 0.358-3.740 [facility] Urea nitrogen [Mass/Vol] 35.0 mg/dL High 7.0-18.0 [facility] Urea nitrogen/Creatinine [Mass ratio] 30.7 mg/mg [facility] Laboratory - Hematology and Cell countson 03-26-2024 HbA1c (Bld) [Mass fraction] 11.2 % High 4.5-6.2 [facility] Comment on above: ADA RECOMMENDED LIMI T 4.0 - 6.0ADA THERAPEUTIC TARGET < 7.0ACTION SUGGESTED> 7.0 Immature granulocytes/100 WBC (Bld) 0.2 % 0.0-0.5 [facility] Leukocytes [#/volume] correc gali for nucleated erythrocytes in Blood by Automated counon 03-26-2024 WBC corrected for nucl RBC Auto (Bld) [#/Vol] 8.3 10 3/uL 4.0-11.0 [facility] Lymphocytes Auto (Bld) [#/Vo l]on 03-26-2024 Lymphocytes (Bld) [#/Vol] 1.4 10 3/uL 1.2-3.8 [facility] Lymphocytes/100 WBC Auto (Bl d)on 03-26-2024 Lymphocytes/100 WBC (Bld) 16.5 % Low 20.5-60.0 [facility] MCH Auto (RBC) [Entitic mass ]on 03-26-2024 MCH (RBC) [Entitic mass] 29.1 pg 26.7-34.0 [facility] MCHC Auto (RBC) [Mass/Vol]on 03-26-2024 MCHC (RBC) [Mass/Vol] 31.7 g/dL 29.9-35.2 [facility] MCV Auto (RBC) [Entitic vol] on 03-26-2024 MCV (RBC) [Entitic vol] 92.0 fL 81.0-99.0 [facility] Monocytes Auto (Bld) [#/Vol] on 03-26-2024 Monocytes (Bld) [#/Vol] 0.7 10 3/uL 0.3-0.8 [facility] Monocytes/100 WBC Auto (Bld) on 03-26-2024 Monocytes/100 WBC (Bld) 7.9 % 1.7-12.0 [facility] Neutrophils Auto (Bld) [#/Vo l]on 03-26-2024 Neutrophils (Bld) [#/Vol] 6.1 10 3/uL 1.4-6.5 [facility] Neutrophils/100 WBC Auto (Bl d)on 03-26-2024 Neutrophils/100 WBC (Bld) 73.4 % 43.0-75.0 [facility] No Panel Informationon 03-26 Eosinophils # (Auto) 0.1 10 3/uL 0.0-0.7 [facility] Immature Granulocyte # (Auto) 0.02 10 3/uL 0.00-0.03 [facility] Troponin I High Sensitivity 12.4 pg/mL 4.0-51.3 [facility] Comment on above: CUT-OFF POINTS HAVE [...] CLINICAL INFORMATION. 1.29 ng/dL 0.76-1.46 [facility] 6.001 u[iU]/mL High 0.358-3.740 [facility] 2890.0 pg/mL High <=1800.0 [facility] [facility] 12.4 pg/mL 4.0-51.3 [facility] 11.2 % High 4.5-6.2 [facility] 30.7 [facility] 35.0 mg/dL High 7.0-18.0 [facility] 0.1 10 3/uL 0.0-0.7 [facility] 9.1 mg/dL 8.5-10.1 [facility] 102 mmol/L 98-107 [facility] 28.5 mmol/L 21.0-32.0 [facility] 1.14 mg/dL High 0.55-1.02 [facility] 0.02 10 3/uL 0.00-0.03 [facility] 56 Low >=60 [facility] 0.2 % 0.0-0.5 [facility] 246 mg/dL High 74-106 [facility] 4.3 mmol/L 3.5-5.1 [facility] 136 mmol/L 136-145 [facility] Platelet mean volume Auto (B ld) [Entitic vol]on 03-26-2024 Platelet mean volume (Bld) [Entitic vol] 10.8 fL 9.5-13.5 [facility] Platelets Auto (Bld) [#/Vol] on 03-26-2024 Platelets (Bld) [#/Vol] 225 10 3/uL 150-450 [facility] RBC Auto (Bld) [#/Vol]on RBC (Bld) [#/Vol] 4.36 10 6/uL 4.20-5.40 [facility] Serum or plasma anion gap de terminationon 03-26-2024 Anion gap [Moles/Vol] 9.8 mmol/L [facility] GI PANEL (PCR)on 03-06-2023 Adenovirus F 40/41 Not detected Normal NOT DETECTED [facility] Comment on above: Performed By: #### P OCGLUC #### [facility] [address] [address] [address] Kasia Nath Astrovirus Not detected Normal NOT DETECTED [facility] Comment on above: Performed By: #### P OCGLUC #### [facility] [address] [address] [address] Kasia Chanel Diff toxin A/B Detected Critically abnormal NOT DETECTED [facility] Comment on above: Performed By: #### P OCGLUC #### [facility] [address] [address] [address] Kasia Nath Campylobacter Detected Critically abnormal NOT DETECTED [facility] Comment on above: Performed By: #### P OCGLUC #### [facility] [address] [address] [address] Kasia Nath Cryptosporidium Not detected Normal NOT DETECTED [facility] Comment on above: Performed By: #### P OCGLUC #### [facility] [address] [address] [address] Kasia Nath Cyclos. Cayetanensis Not detected Normal NOT DETECTED [facility] Comment on above: Performed By: #### P OCGLUC #### [facility] [address] [address] [address] Kasia Nath E. Coli O157 Not Applicable Normal Not Applicable [facility] Comment on above: Performed By: #### P OCGLUC #### [facility] [address] [address] [address] Kasia Nath E. histolytica Not detected Normal NOT DETECTED [facility] Comment on above: Performed By: #### P OCGLUC #### [facility] [address] [place] [address] Dr. Kasia Nath EAEC Not detected Normal NOT DETECTED [facility] Comment on above: Performed By: #### P OCGLUC #### [facility] [address] [place] [address] Dr. Kasia Nath EIEC Not detected Normal NOT DETECTED [facility] Comment on above: Performed By: #### P OCGLUC #### [facility] [address] [place] [address] Dr. Kasia Nath EPEC Not detected Normal NOT DETECTED [facility] Comment on above: Performed By: #### P OCGLUC #### [facility] [address] [place] [address] Dr. Kasia Nath ETEC Not detected Normal NOT DETECTED [facility] Comment on above: Performed By: #### P OCGLUC #### [facility] [address] [place] [address] Dr. Kasia Nath G. Lamblia Not detected Normal NOT DETECTED [facility] Comment on above: Performed By: #### P OCGLUC #### [facility] [address] [place] [address] Dr. Kasia PAKL CONTROLS PASSED Normal [facility] Comment on above: Performed By: #### P OCGLUC #### [facility] [address] [place] [address] Dr. Kasia THOMPSON JUNO HEADER GI PANEL BACTERIA Normal [facility] Comment on above: Performed By: #### P OCGLUC #### [facility] [address] [place] [address] Dr. Kasia THOMPSONHD ECOLI GI PANEL DIARRHEAGEN IC E.COLI / SHIGELLA Normal [facility] Comment on above: Performed By: #### P OCGLUC #### [facility] [address] [address] [address] Kasia GE INFO SEE BELOW Normal [facility] Comment on above: Result Comment: EAEC - Enteroaggregative E. Coli EPEC- Enteropathogenic E. Coli ETEC- Enterotoxigenic E. Coli lt/st STEC- Shigella-like toxin-producing E. Coli stx1/stx2 EIEC- Shigella/Enteroinvasive E. Coli Performed By: #### P OCGLUC #### [facility] [address] [address] [address] Kasia GE PARASITES GI PANEL PARASITES Normal [facility] Comment on above: Performed By: #### P OCGLUC #### [facility] [address] [address] [address] Kasia GE VIRUS GI PANEL VIRUSES Normal [facility] Comment on above: Performed By: #### P OCGLUC #### [facility] [address] [address] [address] Kasia Nath Norovirus GI/GII Not detected Normal NOT DETECTED [facility] Comment on above: Performed By: #### P OCGLUC #### [facility] [address] [address] [address] Kasia Nath P. Shigelloides Not detected Normal NOT DETECTED [facility] Comment on above: Performed By: #### P OCGLUC #### [facility] [address] [address] [address] Kasia Nath Rotavirus A Not detected Normal NOT DETECTED [facility] Comment on above: Performed By: #### P OCGLUC #### [facility] [address] [address] [address] Kasia Nath Salmonella Not detected Normal NOT DETECTED [facility] Comment on above: Performed By: #### P OCGLUC #### [facility] [address] [address] [address] Kasia Nath Sapovirus Not detected Normal NOT DETECTED [facility] Comment on above: Performed By: #### P OCGLUC #### [facility] [address] [place] [address] Dr. Kasia Nath STEC Not detected Normal NOT DETECTED [facility] Comment on above: Performed By: #### P OCGLUC #### [facility] [address] [place] [address] Dr. Kasia Nath Vibrio Not detected Normal NOT DETECTED [facility] Comment on above: Performed By: #### P OCGLUC #### [facility] [address] [place] [address] Dr. Kasia Nath Vibrio Cholera Not detected Normal NOT DETECTED [facility] Comment on above: Performed By: #### P OCGLUC #### [facility] [address] [place] [address] Dr. Kasia Nath Y. Enterocolitica Not detected Normal NOT DETECTED [facility] Comment on above: Performed By: #### P OCGLUC #### [facility] [address] [place] [address] Dr. Kasia Nath CBC AUTO DIFFon 02-14-2023 BASO # 0.0 103/ul Normal 0.0-0.1 [facility] Comment on above: Performed By: #### P OCGLUC #### [facility] [address] [place] [address] Dr. Kasia Nath Basophils/100 WBC (Bld) 0.5 % Normal 0.2-2.0 [facility] Comment on above: Performed By: #### P OCGLUC #### [facility] [address] [place] [address] Dr. Kasia Nath EO # 0.2 103/ul Normal 0.0-0.7 [facility] Comment on above: Performed By: #### P OCGLUC #### [facility] [address] [place] [address] Dr. Kasia Nath Eosinophils/100 WBC (Bld) 2.7 % Normal 0.9-7.0 [facility] Comment on above: Performed By: #### P OCGLUC #### [facility] [address] [place] [address] Dr. Kasia Nath Erythrocyte distribution width (RBC) [Ratio] 13.0 % Normal 11.0-15.0 [facility] Comment on above: Performed By: #### P OCGLUC #### [facility] [address] [place] [address] Dr. Kasia Nath Hematocrit (Bld) [Volume fraction] 35.9 % Critically low 36.0-48.0 [facility] Comment on above: Performed By: #### P OCGLUC #### [facility] [address] [place] [address] Dr. Kasia Nath Hemoglobin (Bld) [Mass/Vol] 12.0 g/dL Normal 12.0-16.0 [facility] Comment on above: Performed By: #### P OCGLUC #### [facility] [address] [place] [address] Dr. Kasia Nath IG # 0.02 10e3/ul Normal 0.00-0.03 [facility] Comment on above: Performed By: #### P OCGLUC #### [facility] [address] [place] [address] Dr. Kasia Nath IG % 0.3 % Normal 0.0-0.5 [facility] Comment on above: Performed By: #### P OCGLUC #### [facility] [address] [place] [address] Dr. Kasia Nath LYMPH # 1.8 103/ul Normal 1.2-3.8 [facility] Comment on above: Performed By: #### P OCGLUC #### [facility] [address] [place] [address] Dr. Kasia Nath Lymphocytes/100 WBC (Bld) 22.8 % Normal 20.5-60.0 [facility] Comment on above: Performed By: #### P OCGLUC #### [facility] [address] [place] [address] Dr. Kasia Nath MANUAL DIFF REQ NO Normal [facility] Comment on above: Performed By: #### P OCGLUC #### [facility] [address] [place] [address] Dr. Kasia Nath MCH (RBC) [Entitic mass] 29.4 pg Normal 26.7-34.0 [facility] Comment on above: Performed By: #### P OCGLUC #### [facility] [address] [address] [address] Kasia Nath MCHC (RBC) [Mass/Vol] 33.4 g/dL Normal 29.9-35.2 [facility] Comment on above: Performed By: #### P OCGLUC #### [facility] [address] [place] [address] Dr. Kasia Nath MCV (RBC) [Entitic vol] 88.0 fL Normal 81.0-99.0 [facility] Comment on above: Performed By: #### P OCGLUC #### [facility] [address] [place] [address] Dr. Kasia Nath MONO # 0.7 103/ul Normal 0.3-0.8 [facility] Comment on above: Performed By: #### P OCGLUC #### [facility] [address] [place] [address] Dr. Kasia Nath Monocytes/100 WBC (Bld) 9.3 % Normal 1.7-12.0 [facility] Comment on above: Performed By: #### P OCGLUC #### [facility] [address] [place] [address] Dr. Kasia Nath NEUT # 5.1 103/ul Normal 1.4-6.5 [facility] Comment on above: Performed By: #### P OCGLUC #### [facility] [address] [place] [address] Dr. Kasia Nath Neutrophils/100 WBC (Bld) 64.4 % Normal 43.0-75.0 [facility] Comment on above: Performed By: #### P OCGLUC #### [facility] [address] [place] [address] Dr. Kasia Nath Platelet mean volume (Bld) [Entitic vol] 11.7 fL Normal 9.5-13.5 [facility] Comment on above: Performed By: #### P OCGLUC #### [facility] [address] [place] [address] Dr. Kasia Nath PLT 175 103/ul Normal 150-450 [facility] Comment on above: Performed By: #### P OCGLUC #### [facility] [address] [address] [address] Kasia Nath RBC 4.08 106/ul Critically low 4.20-5.40 [facility] Comment on above: Performed By: #### P OCGLUC #### [facility] [address] [address] [address] Kasia Nath WBC 7.9 103/ul Normal 4.0-11.0 [facility] Comment on above: Performed By: #### P OCGLUC #### [facility] [address] [address] [address] Kasia Nath LIPASEon 02-14-2023 Lipase [Catalytic activity/Vol] 51.0 U/L Critically low 73.0-393.0 [facility] Comment on above: Performed By: #### L IPA, CMP ####[facility] [address] [address]Dr. Kasia Nath PROF 14(COMP METB)on 023 Albumin [Mass/Vol] 2.8 g/dL Critically low 3.4-5.0 [facility] Comment on above: Performed By: #### L IPA, CMP ####[facility] [address] [address]DrDoreen Nath Albumin/Globulin [Mass ratio] 0.7 {ratio} Normal [facility] Comment on above: Performed By: #### L IPA, CMP ####[facility] [address] [address]DrDoreen Nath ALP [Catalytic activity/Vol] 90 U/L Normal 46-116 [facility] Comment on above: Performed By: #### L IPA, CMP ####[facility] [address] [address]DrDoreen Nath ALT [Catalytic activity/Vol] 15 U/L Normal 14-59 [facility] Comment on above: Performed By: #### L IPA, CMP ####[facility] [address] [address]Dr. Kasia Nath Anion gap [Moles/Vol] 15.6 mmol/L Normal [facility] Comment on above: Performed By: #### L IPA, CMP ####[facility] [address] [address]Dr. Kasia Nath AST [Catalytic activity/Vol] 9 U/L Critically low 15-37 [facility] Comment on above: Performed By: #### L IPA, CMP ####[facility] [address] [place], [place] [address]Dr. Kasia Nath Bilirubin [Mass/Vol] 0.4 mg/dL Normal 0.2-1.0 [facility] Comment on above: Performed By: #### L IPA, CMP ####[facility] [address] [place], [place] [address]Dr. Kasia Nath Calcium [Mass/Vol] 9.1 mg/dL Normal 8.5-10.1 [facility] Comment on above: Performed By: #### L IPA, CMP ####[facility] [address] [place], [place] [address]Dr. Fartuncristy Nath Chloride [Moles/Vol] 104 mmol/L Normal 98-107 [facility] Comment on above: Performed By: #### L IPA, CMP ####[facility] [address] [place], [place] [address]Dr. Kasia Nath CO2 [Moles/Vol] 17.0 mmol/L Critically low 21.0-32.0 [facility] Comment on above: Performed By: #### L IPA, CMP ####[facility] [address] [place], [place] [address]Dr. Kasia Nath Creatinine [Mass/Vol] 1.78 mg/dL Critically high 0.55-1.02 [facility] Comment on above: Performed By: #### L IPA, CMP ####[facility] [address] [place], [place] [address]Dr. Kasia Nath EGFR-AF SOUTH AFRICAN 34 mL/min/1.73m2 Critically low >=60 [facility] Comment on above: Performed By: #### L IPA, CMP ####[facility] [address] [id number]. Kasia Nath EGFR-NON AF SOUTH AFRICAN 28 mL/min/1.73m2 Critically low >=60 [facility] Comment on above: Performed By: #### L IPA, CMP ####[facility] [address] [id number]. Kasia Nath Globulin (S) [Mass/Vol] 4.3 g/dL Normal [facility] Comment on above: Performed By: #### L IPA, CMP ####[facility] [address] [address]Dr. Kasia Nath Glucose [Mass/Vol] 248 mg/dL Critically high 74-106 [facility] Comment on above: Performed By: #### L IPA, CMP ####[facility] [address] [address]Dr. Kasia Nath Potassium [Moles/Vol] 4.6 mmol/L Normal 3.5-5.1 [facility] Comment on above: Performed By: #### L IPA, CMP ####[facility] [address] [place], [place] [address]Dr. Kasia Nath Protein [Mass/Vol] 7.1 g/dL Normal 6.4-8.2 [facility] Comment on above: Performed By: #### L IPA, CMP ####[facility] [address] [place], [place] [address]Dr. Kasia Nath Sodium [Moles/Vol] 132 mmol/L Critically low 136-145 [facility] Comment on above: Performed By: #### L IPA, CMP ####[facility] [address] [place], [place] [address]Dr. Kasia Nath Urea nitrogen [Mass/Vol] 78.0 mg/dL Critically high 7.0-18.0 [facility] Comment on above: Performed By: #### L IPA, CMP ####[facility] [address] [place], [place] [address]Dr. Kasia Nath Urea nitrogen/Creatinine [Mass ratio] 43.8 mg/mg Normal [facility] Comment on above: Performed By: #### L IPA, CMP ####[facility] [address] [place], [place] [address]Dr. Kasia Nath CBC AUTO DIFFon 02-13-2023 BASO # 0.0 103/ul Normal 0.0-0.1 [facility] Comment on above: Performed By: #### C BC ####[facility] [address] [place], [place] [address]Dr. Kasia Nath Basophils/100 WBC (Bld) 0.5 % Normal 0.2-2.0 [facility] Comment on above: Performed By: #### C BC ####[facility] [address] [place], [place] [address]Dr. Kasia Nath EO # 0.1 103/ul Normal 0.0-0.7 [facility] Comment on above: Performed By: #### C BC ####[facility] [address] [place], [place] [address]Dr. Kasia Nath Eosinophils/100 WBC (Bld) 1.0 % Normal 0.9-7.0 [facility] Comment on above: Performed By: #### C BC ####[facility] [address] [place], [place] [address]Dr. Kasia Nath Erythrocyte distribution width (RBC) [Ratio] 12.8 % Normal 11.0-15.0 [facility] Comment on above: Performed By: #### C BC ####[facility] [address] [place], [place] [address]Dr. Kasia Nath Hematocrit (Bld) [Volume fraction] 38.5 % Normal 36.0-48.0 [facility] Comment on above: Performed By: #### C BC ####[facility] [address] [place], [place] [address]Dr. Kasia Nath Hemoglobin (Bld) [Mass/Vol] 13.0 g/dL Normal 12.0-16.0 [facility] Comment on above: Performed By: #### C BC ####[facility] [address] [place], [place] [address]Dr. Kasia Nath IG # 0.02 10e3/ul Normal 0.00-0.03 [facility] Comment on above: Performed By: #### C BC ####[facility] [address] [address]Dr. Kasia Nath IG % 0.2 % Normal 0.0-0.5 [facility] Comment on above: Performed By: #### C BC ####[facility] [address] [address]DrDoreen Kasia Nath LYMPH # 0.9 103/ul Critically low 1.2-3.8 [facility] Comment on above: Performed By: #### C BC ####[facility] [address] [address]DrDoreen Kasia Portillo Lymphocytes/100 WBC (Bld) 10.0 % Critically low 20.5-60.0 [facility] Comment on above: Performed By: #### C BC ####[facility] [address] [place], [place] [address]Dr. Kasia Nath MANUAL DIFF REQ NO Normal [facility] Comment on above: Performed By: #### C BC ####[facility] [address] [address]Dr. Kasia Nath MCH (RBC) [Entitic mass] 29.5 pg Normal 26.7-34.0 [facility] Comment on above: Performed By: #### C BC ####[facility] [address] [address]Dr. Kasia Portillo MCHC (RBC) [Mass/Vol] 33.8 g/dL Normal 29.9-35.2 [facility] Comment on above: Performed By: #### C BC ####[facility] [address] [address]DrDoreen Kasia Portillo MCV (RBC) [Entitic vol] 87.5 fL Normal 81.0-99.0 [facility] Comment on above: Performed By: #### C BC ####[facility] [address] [place], [place] [address]DrDoreen Kasia Portillo MONO # 0.5 103/ul Normal 0.3-0.8 [facility] Comment on above: Performed By: #### C BC ####[facility] [address] [address]Dr. Kasia Nath Monocytes/100 WBC (Bld) 5.7 % Normal 1.7-12.0 [facility] Comment on above: Performed By: #### C BC ####[facility] [address] [address]Dr. Kasia Nath NEUT # 7.2 103/ul Critically high 1.4-6.5 [facility] Comment on above: Performed By: #### C BC ####[facility] [address] [address]Dr. aKsia Nath Neutrophils/100 WBC (Bld) 82.6 % Critically high 43.0-75.0 [facility] Comment on above: Performed By: #### C BC ####[facility] [address] [place], [place] [address]Dr. Kasia Nath Platelet mean volume (Bld) [Entitic vol] 11.8 fL Normal 9.5-13.5 [facility] Comment on above: Performed By: #### C BC ####[facility] [address] [place], [place] [address]Dr. Kasia Nath PLT 187 103/ul Normal 150-450 [facility] Comment on above: Performed By: #### C BC ####[facility] [address] [address]Dr. Kasia Nath RBC 4.40 106/ul Normal 4.20-5.40 [facility] Comment on above: Performed By: #### C BC ####[facility] [address] [place], [place] [address]Dr. Kasia Nath WBC 8.8 103/ul Normal 4.0-11.0 The [facility] Comment on above: Performed By: #### C BC ####[facility] [address] [id number]. Kasia Nath CT ABD/PELVIS WO CONon 02-13 [...] RCX ####[facility] [address] [place], [place] [address]Ut. Kasia Nath [facility]on SARS-CoV-2 (COVID-19) RNA FERN+probe Ql [...] for this test is supported by the [place] of Health and Human Service's declaration that [...] [facility] [address] [place] [address] Dr. Kasia Nath GI PANEL (PCR)on 02-13-2023 Adenovirus F 40/41 Not detected Normal NOT DETECTED The [facility] Comment on above: Performed By: #### C BC #### [facility] [address] [place] [address] Dr. Kasia Nath Astrovirus Not detected Normal NOT DETECTED The [facility] Comment on above: Performed By: #### C BC #### [facility] [address] [place] [address] Dr. Kasia Del Real. Diff toxin A/B Not detected Normal NOT DETECTED The [facility] Comment on above: Performed By: #### C BC #### [facility] [address] [place] [address] Dr. Kasia Nath Campylobacter Not detected Normal NOT DETECTED The [facility] Comment on above: Performed By: #### C BC #### [facility] [address] [place] [address] Dr. Kasia Nath Cryptosporidium Not detected Normal NOT DETECTED The [facility] Comment on above: Performed By: #### C BC #### [facility] [address] [place] [address] Dr. Kasia Nath Cyclos. Cayetanensis Not detected Normal NOT DETECTED The [facility] Comment on above: Performed By: #### C BC #### [facility] [address] [place] [address] Dr. Kasia Nath E. Coli O157 Not Applicable Normal Not Applicable The [facility] Comment on above: Performed By: #### C BC #### [facility] [address] [place] [address] Dr. Kasia Nath E. histolytica Not detected Normal NOT DETECTED The [facility] Comment on above: Performed By: #### C BC #### [facility] [address] [place] [address] Dr. Kasia Nath EAEC Not detected Normal NOT DETECTED The [facility] Comment on above: Performed By: #### C BC #### [facility] [address] [place] [address] Dr. Kasia Nath EIEC Not detected Normal NOT DETECTED The [facility] Comment on above: Performed By: #### C BC #### [facility] [address] [place] [address] Dr. Kasia Nath EPEC Not detected Normal NOT DETECTED The [facility] Comment on above: Performed By: #### C BC #### [facility] [address] [place] [address] Dr. Kasia Nath ETEC Not detected Normal NOT DETECTED The [facility] Comment on above: Performed By: #### C BC #### [facility] [address] [place] [address] Dr. Kasia Nath G. Lamblia Not detected Normal NOT DETECTED The [facility] Comment on above: Performed By: #### C BC #### [facility] [address] [place] [address] Dr. Kasia MOYERANEL CONTROLS PASSED Normal The [facility] Comment on above: Performed By: #### C BC #### [facility] [address] [place] [address] Dr. Kasia THOMPSON JUNO HEADER GI PANEL BACTERIA Normal [facility] Comment on above: Performed By: #### C BC #### [facility] [address] [place] [address] Dr. Kasia THOMPSONHD ECOLI GI PANEL DIARRHEAGEN IC E.COLI / SHIGELLA Normal The [facility] Comment on above: Performed By: #### C BC #### [facility] [address] [place] [address] Dr. Kasia GE INFO SEE BELOW Normal [facility] Comment on above: Result Comment: EAEC - Enteroaggregative E. Coli EPEC- Enteropathogenic E. Coli ETEC- Enterotoxigenic E. Coli lt/st STEC- Shigella-like toxin-producing E. Coli stx1/stx2 EIEC- Shigella/Enteroinvasive E. Coli Performed By: #### C BC #### [facility] [address] [place] [address] Dr. Kasia GE PARASITES GI PANEL PARASITES Normal The [facility] Comment on above: Performed By: #### C BC #### [facility] [address] [place] [address] Dr. Kasia GE VIRUS GI PANEL VIRUSES Normal The [facility] Comment on above: Performed By: #### C BC #### [facility] [address] [place] [address] Dr. Kasia Nath Norovirus GI/GII Not detected Normal NOT DETECTED The [facility] Comment on above: Performed By: #### C BC #### [facility] [address] [place] [address] Dr. Kasia Nath P. Shigelloides Not detected Normal NOT DETECTED The [facility] Comment on above: Performed By: #### C BC #### [facility] [address] [place] [address] Dr. Kasia Nath Rotavirus A Not detected Normal NOT DETECTED The [facility] Comment on above: Performed By: #### C BC #### [facility] [address] [place] [address] Dr. Kasia Nath Salmonella Not detected Normal NOT DETECTED The [facility] Comment on above: Performed By: #### C BC #### [facility] [address] [place] [address] Dr. Kasia Nath Sapovirus Not detected Normal NOT DETECTED The [facility] Comment on above: Performed By: #### C BC #### [facility] [address] [place] [address] Dr. Kasia Nath STEC Not detected Normal NOT DETECTED The [facility] Comment on above: Performed By: #### C BC #### [facility] [address] [address] [address] Kasia Nath Vibrio Not detected Normal NOT DETECTED [facility] Comment on above: Performed By: #### C BC #### [facility] [address] [address] [address] Kasia Nath Vibrio Cholera Not detected Normal NOT DETECTED The [facility] Comment on above: Performed By: #### C BC #### [facility] [address] [place] [address] Dr. Kasia Nath Y. Enterocolitica Not detected Normal NOT DETECTED The [facility] Comment on above: Performed By: #### C BC #### [facility] [address] [place] [address] Dr. Kasia Nath LACTATE/LACTIC ACIDon 2022 Lactate [Moles/Vol] 1.7 mmol/L Normal 0.4-2.0 [facility] Comment on above: Performed By: #### L ACT ####[facility] [address] [address]Dr. Kasia Nath LIPASEon 02-13-2023 Lipase [Catalytic activity/Vol] 82.0 U/L Normal 73.0-393.0 [facility] Comment on above: Performed By: #### L IPA, CMP #### [facility] [address] [place] [address] Dr. Kasia Nath POINT OF CARE GLUCOSEon Glucose [Mass/Vol] 229 mg/dL Critically high 74-106 [facility] Comment on above: Performed By: #### P OCGLUC #### [facility] [address] [place] [address] Dr. Kasia Nath Glucose [Mass/Vol] 474 mg/dL Critically high -106 [facility] Comment on above: Performed By: #### P OCGLUC #### [facility] [address] [place] [address] Dr. Kasia Nath PROF 14(COMP METB)on 023 Albumin [Mass/Vol] 3.4 g/dL Normal 3.4-5.0 [facility] Comment on above: Performed By: #### L IPA, CMP #### [facility] [address] [place] [address] Dr. Kasia Nath Albumin/Globulin [Mass ratio] 0.7 {ratio} Normal [facility] Comment on above: Performed By: #### L IPA, CMP #### [facility] [address] [address] [address] Kasia Nath ALP [Catalytic activity/Vol] 106 U/L Normal 46-116 [facility] Comment on above: Performed By: #### L IPA, CMP #### [facility] [address] [place] [address] Dr. Kasia Nath ALT [Catalytic activity/Vol] 21 U/L Normal 14-59 [facility] Comment on above: Performed By: #### L IPA, CMP #### [facility] [address] [place] [address] Dr. Kasia Nath Anion gap [Moles/Vol] 17.7 mmol/L Normal [facility] Comment on above: Performed By: #### L IPA, CMP #### [facility] [address] [place] [address] Dr. Kasia Nath AST [Catalytic activity/Vol] 11 U/L Critically low 15-37 [facility] Comment on above: Performed By: #### L IPA, CMP #### [facility] [address] [address] [address] Kasia Nath Bilirubin [Mass/Vol] 0.5 mg/dL Normal 0.2-1.0 [facility] Comment on above: Performed By: #### L IPA, CMP #### [facility] [address] [address] [address] Kasia Nath Calcium [Mass/Vol] 9.6 mg/dL Normal 8.5-10.1 [facility] Comment on above: Performed By: #### L IPA, CMP #### [facility] [address] [place] [address] Dr. Kasia Nath Chloride [Moles/Vol] 99 mmol/L Normal 98-107 [facility] Comment on above: Performed By: #### L IPA, CMP #### [facility] [address] [place] [address] Dr. Kasia Nath CO2 [Moles/Vol] 20.6 mmol/L Critically low 21.0-32.0 [facility] Comment on above: Performed By: #### L IPA, CMP #### [facility] [address] [place] [address] Dr. Kasia Nath Creatinine [Mass/Vol] 2.14 mg/dL Critically high 0.55-1.02 [facility] Comment on above: Performed By: #### L IPA, CMP #### [facility] [address] [place] [address] Dr. Kasia Nath EGFR-AF SOUTH AFRICAN 27 mL/min/1.73m2 Critically low >=60 [facility] Comment on above: Performed By: #### L IPA, CMP #### [facility] [address] [place] [address] Dr. Kasia Nath EGFR-NON AF SOUTH AFRICAN 22 mL/min/1.73m2 Critically low >=60 [facility] Comment on above: Performed By: #### L IPA, CMP #### [facility] [address] [place] [address] Dr. Kasia Nath Globulin (S) [Mass/Vol] 4.8 g/dL Normal [facility] Comment on above: Performed By: #### L IPA, CMP #### [facility] [address] [place] [address] Dr. Kasia Nath Glucose [Mass/Vol] 498 mg/dL Critically high 74-106 [facility] Comment on above: Performed By: #### L IPA, CMP #### [facility] [address] [place] [address] Dr. Kasia Nath Potassium [Moles/Vol] 5.3 mmol/L Critically high 3.5-5.1 [facility] Comment on above: Performed By: #### L IPA, CMP #### [facility] [address] [place] [address] Dr. Kasia Nath Protein [Mass/Vol] 8.2 g/dL Normal 6.4-8.2 [facility] Comment on above: Performed By: #### L IPA, CMP #### [facility] [address] [address] [address] Kasia Nath Sodium [Moles/Vol] 132 mmol/L Critically low 136-145 Th e [facility] Comment on above: Performed By: #### L IPA, CMP #### [facility] [address] [address] [address] Kasia Nath Urea nitrogen [Mass/Vol] 86.0 mg/dL Critically high 7.0-18.0 [facility] Comment on above: Performed By: #### L IPA, CMP #### [facility] [address] [place] [address] Dr. Kasia Nath Urea nitrogen/Creatinine [Mass ratio] 40.2 mg/mg Normal [facility] Comment on above: Performed By: #### L IPA, CMP #### [facility] [address] [place] [address] Dr. Kasia Nath UA RANDOM W/MICROSCOPICon BACTERIA TRACE Abnormal NONE SEEN [facility] Comment on above: Performed By: #### U AMIC ####[facility] [address] [place], [place] [address]DrDoreen Nath Bilirubin Ql (U) Negative Normal NEGATIVE The [facility] Comment on above: Performed By: #### U AMIC ####[facility] [address] [place] [address]DrDoreen Nath CAST SEEN Abnormal NONE SEEN The [facility] Comment on above: Performed By: #### U AMIC ####[facility] [address] [place] [address]DrDoreen Nath Clarity (U) CLEAR Normal CLEAR The [facility] Comment on above: Performed By: #### U AMIC ####[facility] [address] [place] [place] [address]DrDoreen Nath Color (U) LT. YELLOW Normal YELLOW The [facility] Comment on above: Performed By: #### U AMIC ####[facility] [address] [place] [phone]. Fartunlan Nath Crystals LM Nom (Urine sed) NONE SEEN Normal NONE SEEN The [facility] Comment on above: Performed By: #### U AMIC ####[facility] [address] [place] [phone]. Yilan Nath Epithelial cells LM Ql (Urine sed) FEW Abnormal NONE SEEN /RARE The [facility] Comment on above: Performed By: #### U AMIC ####[facility] [address] [place] [address] [address]Dr. Fartunlan Nath Glucose Ql (U) >1000 Abnormal NEGATIVE The [facility] Comment on above: Performed By: #### U AMIC ####[facility] [address] [place] [address]Dr. Fartunlan Nath Hemoglobin Ql (U) Negative Normal NEGATIVE The [facility] Comment on above: Performed By: #### U AMIC ####[facility] [address] [place], [place] [address]Dr. Yilan Nath HYALINE CAST RARE Normal The [facility] Comment on above: Performed By: #### U AMIC ####[facility] [address] [place], [place] [address]Dr. Yilan Nath Ketones Ql (U) Negative Normal NEGATIVE The [facility] Comment on above: Performed By: #### U AMIC ####[facility] [address] [place] [address]Dr. Yilan Nath LEUKOCYTES Negative Normal NEGATIVE The [facility] Comment on above: Performed By: #### U AMIC ####[facility] [address] [place] [address]Dr. Yilan Nath MUCOUS NONE SEEN Normal NONE SEEN The [facility] Comment on above: Performed By: #### U AMIC ####[facility] [address] [place], [place] [address]Dr. Yilan Nath Nitrite Ql (U) Negative Normal NEGATIVE The [facility] Comment on above: Performed By: #### U AMIC ####[facility] [address] [place], [place] [address]Dr. Kasia Nath pH (U) 5.5 [pH] Normal 5-9 The [facility] Comment on above: Performed By: #### U AMIC ####[facility] [address] [place] [address]Dr. Kasia Nath RBC 0-2 Normal 0-2 The [facility] Comment on above: Performed By: #### U AMIC ####[facility] [address] [place] [address]Dr. Kasia Nath SPEC GRAVITY 1.015 Normal 1.005-<=1.0 25 [facility] Comment on above: Performed By: #### U AMIC ####[facility] [address] [place], [place] [address]Dr. Kasia Nath UA PROTEIN TRACE Normal NEGATIVE/ TRACE [facility] Comment on above: Performed By: #### U AMIC ####[facility] [address] [place], [place] [address]Dr. Kasia Nath Urobilinogen Qn (U) 0.2 {Meka'U}/dL Normal 0.2 - 1. 0 [facility] Comment on above: Performed By: #### U AMIC ####[facility] [address] [place], [place] [address]Dr. Kasia Nath WBC 0-2 Abnormal NONE SEEN The [facility] Comment on above: Performed By: #### U AMIC ####[facility] [address] [place], [place] [address]Dr. Kasia Nath BNPon 01-16-2023 Natriuretic peptide B (Bld) [Mass/Vol] 1675.0 pg/mL Normal <=1,800.0 [facility] Comment on above: Performed By: #### B BRIM GREASER OPERATOR, CMP ####[facility] [address] [place], [place] [address]Dr. Kasia Nath PROF 14(COMP METB)on 023 Albumin [Mass/Vol] 3.4 g/dL Normal 3.4-5.0 [facility] Comment on above: Performed By: #### B BRIM GREASER OPERATOR, CMP ####[facility] [address] [place] [phone]. Kasia Nath Albumin/Globulin [Mass ratio] 0.8 {ratio} Normal [facility] Comment on above: Performed By: #### B BRIM GREASER OPERATOR, CMP ####[facility] [address] [phone]. Kasia Nath ALP [Catalytic activity/Vol] 99 U/L Normal 46-116 [facility] Comment on above: Performed By: #### B BRIM GREASER OPERATOR, CMP ####[facility] [address] [phone]. Kasia Nath ALT [Catalytic activity/Vol] 18 U/L Normal 14-59 [facility] Comment on above: Performed By: #### B BRIM GREASER OPERATOR, CMP ####[facility] [address] [phone]. Kasia Portillo Anion gap [Moles/Vol] 10.6 mmol/L Normal [facility] Comment on above: Performed By: #### B BRIM GREASER OPERATOR, CMP ####[facility] [address] [phone]. Kasia Portillo AST [Catalytic activity/Vol] 15 U/L Normal 15-37 [facility] Comment on above: Performed By: #### B BRIM GREASER OPERATOR, CMP ####[facility] [address] [phone]. Kasia Portillo Bilirubin [Mass/Vol] 0.5 mg/dL Normal 0.2-1.0 [facility] Comment on above: Performed By: #### B BRIM GREASER OPERATOR, CMP ####[facility] [address] [phone]. Kasia Portillo Calcium [Mass/Vol] 9.1 mg/dL Normal 8.5-10.1 [facility] Comment on above: Performed By: #### B BRIM GREASER OPERATOR, CMP ####[facility] [address] [address]Dr. Kasia Nath Chloride [Moles/Vol] 98 mmol/L Normal 98-107 [facility] Comment on above: Performed By: #### B BRIM GREASER OPERATOR, CMP ####[facility] [address] [place] [address]Dr. Kasia Nath CO2 [Moles/Vol] 30.4 mmol/L Normal 21.0-32.0 [facility] Comment on above: Performed By: #### B BRIM GREASER OPERATOR, CMP ####[facility] [address] [place], [place] [address]Dr. Kasia Nath Creatinine [Mass/Vol] 1.44 mg/dL Critically high 0.55-1.02 [facility] Comment on above: Performed By: #### B BRIM GREASER OPERATOR, CMP ####[facility] [address] [place], [place] [address]Dr. Kasia Portillo EGFR-AF SOUTH AFRICAN 43 mL/min/1.73m2 Critically low >=60 [facility] Comment on above: Performed By: #### B BRIM GREASER OPERATOR, CMP ####[facility] [address] [place], [place] [address]Dr. Kasia Nath EGFR-NON AF SOUTH AFR[place] 35 mL/min/1.73m2 Critically low >=60 [facility] Comment on above: Performed By: #### B BRIM GREASER OPERATOR, CMP ####[facility] [address] [place], [place] [address]Dr. Kasia Portillo Globulin (S) [Mass/Vol] 4.4 g/dL Normal [facility] Comment on above: Performed By: #### B BRIM GREASER OPERATOR, CMP ####[facility] [address] [place], [place] [address]Dr. Fartuncristy Portillo Glucose [Mass/Vol] 401 mg/dL Critically high 74-106 [facility] Comment on above: Performed By: #### B BRIM GREASER OPERATOR, CMP ####[facility] [address] [place], [place] [address]Dr. Fartuncristy Portillo Potassium [Moles/Vol] 5.0 mmol/L Normal 3.5-5.1 [facility] Comment on above: Performed By: #### B BRIM GREASER OPERATOR, CMP ####[facility] [address] [place], [place] [address]Dr. Kasia Nath Protein [Mass/Vol] 7.8 g/dL Normal 6.4-8.2 [facility] Comment on above: Performed By: #### B BRIM GREASER OPERATOR, CMP ####[facility] [address] [address]Dr. Fartuncristy Nath Sodium [Moles/Vol] 134 mmol/L Critically low 136-145 [facility] Comment on above: Performed By: #### B BRIM GREASER OPERATOR, CMP ####[facility] [address] [address]Dr. Kasia Nath Urea nitrogen [Mass/Vol] 46.0 mg/dL Critically high 7.0-18.0 [facility] Comment on above: Performed By: #### B BRIM GREASER OPERATOR, CMP ####[facility] [address] [place] [address]Dr. Kasia Nath Urea nitrogen/Creatinine [Mass ratio] 31.9 mg/mg Normal [facility] Comment on above: Performed By: #### B BRIM GREASER OPERATOR, CMP ####[facility] [id number] [place], [place] [address]Dr. Kasia Nath BNPon 01-05-2023 Natriuretic peptide B (Bld) [Mass/Vol] 1389.0 pg/mL Normal <=1,800.0 [facility] Comment on above: Performed By: #### B BRIM GREASER OPERATOR, CMADM, CMP ####[facility] [address] [address]Dr. Kasia Nath CARDIAC EMERY ADMITon 023 CK [Catalytic activity/Vol] 138 U/L Normal 26-192 [facility] Comment on above: Performed By: #### B BRIM GREASER OPERATOR, CMADM, CMP ####[facility] [id number] [place], [place] [address]Dr. Fartuncristy Nath CK.MB [Mass/Vol] 2.22 ng/mL Normal <=3.60 [facility] Comment on above: Performed By: #### B BRIM GREASER OPERATOR, CMADM, CMP ####[facility] [address] [place], [place] [address]Dr. Kasia Portillo HSTROP 15.9 pg/mL Normal 4.0-51.3 [facility] Comment on above: Result Comment: CUT- OFF POINTS HAVE BEEN ESTABLISHED BASED ON THE FOURTH UNIVERSAL DEFINITIONS OF MYOCARDIAL INFARCTION. THE UPPER REFERENCE LIMIT (URL) OF TROPONIN, DEFINED THE 99TH PERCENTILE OF cTnI DISTRIBUTION IN A REFERENCE POPULATION, HAS BEEN CONFIRMED THE DECISION THRESHOLD FOR ND DIAGNOSIS. Performed By: #### B BRIM GREASER OPERATOR, CMADM, CMP ####[facility] [address] [place], [place] [address]LbDr. Kasia Nath GRETTA 178 ng/mL Critically high 9-82 [facility] Comment on above: Performed By: #### B BRIM GREASER OPERATOR, CMADM, CMP ####[facility] [address] [place] [id number]. Kasia Nath CBC AUTO DIFFon 01-05-2023 BASO # 0.1 103/ul Normal 0.0-0.1 [facility] Comment on above: Performed By: #### C BC #### [facility] Laboratory [address] [address] [address] Kasia Nath Basophils/100 WBC (Bld) 0.7 % Normal 0.2-2.0 [facility] Comment on above: Performed By: #### C BC #### [facility] [address] [address] [address] Kasia Nath EO # 0.3 103/ul Normal 0.0-0.7 [facility] Comment on above: Performed By: #### C BC #### [facility] [address] [address] [address] Kasia Nath Eosinophils/100 WBC (Bld) 2.9 % Normal 0.9-7.0 [facility] Comment on above: Performed By: #### C BC #### [facility] Laboratory [address] [address] [address] Kasia Nath Erythrocyte distribution width (RBC) [Ratio] 13.5 % Normal 11.0-15.0 [facility] Comment on above: Performed By: #### C BC #### [facility] Laboratory [address] [address] [address] Kasia Nath Hematocrit (Bld) [Volume fraction] 39.8 % Normal 36.0-48.0 [facility] Comment on above: Performed By: #### C BC #### [facility] Laboratory [address] [place] [address] Dr. Kasia Nath Hemoglobin (Bld) [Mass/Vol] 13.5 g/dL Normal 12.0-16.0 [facility] Comment on above: Performed By: #### C BC #### [facility] Laboratory [address] [place] [address] Dr. Kasia Nath IG # 0.02 10e3/ul Normal 0.00-0.03 [facility] Comment on above: Performed By: #### C BC #### [facility] Laboratory [address] [place] [address] Dr. Kasia Nath IG % 0.2 % Normal 0.0-0.5 [facility] Comment on above: Performed By: #### C BC #### [facility] Laboratory [address] [place] [address] Dr. Kasia Nath LYMPH # 1.9 103/ul Normal 1.2-3.8 [facility] Comment on above: Performed By: #### C BC #### [facility] Laboratory [address] [place] [address] Dr. Kasia Nath Lymphocytes/100 WBC (Bld) 22.0 % Normal 20.5-60.0 [facility] Comment on above: Performed By: #### C BC #### [facility] Laboratory [address] [place] [address] Dr. Kasia Nath MANUAL DIFF REQ NO Normal [facility] Comment on above: Performed By: #### C BC #### [facility] Laboratory [address] [place] [address] Dr. Kasia Nath MCH (RBC) [Entitic mass] 29.8 pg Normal 26.7-34.0 [facility] Comment on above: Performed By: #### C BC #### [facility] Laboratory [address] [place] [address] Dr. Kasia Nath MCHC (RBC) [Mass/Vol] 33.9 g/dL Normal 29.9-35.2 [facility] Comment on above: Performed By: #### C BC #### [facility] Laboratory [address] [place] [address] Dr. Kasia Nath MCV (RBC) [Entitic vol] 87.9 fL Normal 81.0-99.0 [facility] Comment on above: Performed By: #### C BC #### [facility] Laboratory [address] [place] [address] Dr. Kasia Nath MONO # 0.8 103/ul Normal 0.3-0.8 [facility] Comment on above: Performed By: #### C BC #### [facility] Laboratory [address] [place] [address] Dr. Kasia Nath Monocytes/100 WBC (Bld) 8.8 % Normal 1.7-12.0 [facility] Comment on above: Performed By: #### C BC #### [facility] Laboratory [address] [place] [address] Dr. Kasia Nath NEUT # 5.6 103/ul Normal 1.4-6.5 [facility] Comment on above: Performed By: #### C BC #### [facility] Laboratory [address] [place] [address] Dr. Kasia Nath Neutrophils/100 WBC (Bld) 65.4 % Normal 43.0-75.0 [facility] Comment on above: Performed By: #### C BC #### [facility] Laboratory [address] [place] [address] Dr. Kasia Nath Platelet mean volume (Bld) [Entitic vol] 10.6 fL Normal 9.5-13.5 [facility] Comment on above: Performed By: #### C BC #### [facility] [address] [place] [address] Dr. Kasia Nath PLT 222 103/ul Normal 150-450 [facility] Comment on above: Performed By: #### C BC #### [facility] [address] [place] [address] Dr. Kasia Nath RBC 4.53 106/ul Normal 4.20-5.40 [facility] Comment on above: Performed By: #### C BC #### [facility] [address] [place] [address] Dr. Kasia Nath WBC 8.6 103/ul Normal 4.0-11.0 [facility] Comment on above: Performed By: #### C BC #### [facility] Laboratory [address] [address] [address] Kasia Nath PROF 14(COMP METB)on 023 Albumin [Mass/Vol] 3.3 g/dL Critically low 3.4-5.0 [facility] Comment on above: Performed By: #### B BRIM GREASER OPERATOR, CMADM, CMP #### [facility] Laboratory [address] [place] [address] Dr. Kasia Nath Albumin/Globulin [Mass ratio] 0.7 {ratio} Normal [facility] Comment on above: Performed By: #### B BRIM GREASER OPERATOR, CMADM, CMP #### [facility] Laboratory [address] [place] [address] Dr. Kasia Nath ALP [Catalytic activity/Vol] 106 U/L Normal 46-116 [facility] Comment on above: Performed By: #### B BRIM GREASER OPERATOR, CMADM, CMP #### [facility] Laboratory [address] [place] [address] Dr. Kasia Nath ALT [Catalytic activity/Vol] 22 U/L Normal 14-59 [facility] Comment on above: Performed By: #### B BRIM GREASER OPERATOR, CMADM, CMP #### [facility] [address] [address] [address] Kasia Nath Anion gap [Moles/Vol] 12.0 mmol/L Normal [facility] Comment on above: Performed By: #### B BRIM GREASER OPERATOR, CMADM, CMP #### [facility] [address] [place] [address] Dr. Kasia Nath AST [Catalytic activity/Vol] 23 U/L Normal 15-37 [facility] Comment on above: Performed By: #### B BRIM GREASER OPERATOR, CMADM, CMP #### [facility] [address] [place] [address] Dr. Kasia Nath Bilirubin [Mass/Vol] 0.7 mg/dL Normal 0.2-1.0 [facility] Comment on above: Performed By: #### B BRIM GREASER OPERATOR, CMADM, CMP #### [facility] [address] [address] [address] Kasia Nath Calcium [Mass/Vol] 8.8 mg/dL Normal 8.5-10.1 [facility] Comment on above: Performed By: #### B BRIM GREASER OPERATOR, CMADM, CMP #### [facility] [address] [address] [address] Kasia Nath Chloride [Moles/Vol] 98 mmol/L Normal 98-107 [facility] Comment on above: Performed By: #### B BRIM GREASER OPERATOR, CMADM, CMP #### [facility] [address] [address] [address] Kasia Nath CO2 [Moles/Vol] 30.2 mmol/L Normal 21.0-32.0 [facility] Comment on above: Performed By: #### B BRIM GREASER OPERATOR, CMADM, CMP #### [facility] Laboratory [address] [place] [address] Dr. Kasia Nath Creatinine [Mass/Vol] 1.19 mg/dL Critically high 0.55-1.02 [facility] Comment on above: Performed By: #### B BRIM GREASER OPERATOR, CMADM, CMP #### [facility] Laboratory [address] [address] [address] Kasia Nath EGFR-AF SOUTH AFRICAN 53 mL/min/1.73m2 Critically low >=60 [facility] Comment on above: Performed By: #### B BRIM GREASER OPERATOR, CMADM, CMP #### [facility] Laboratory [address] [place] [address] Dr. Kasia Nath EGFR-NON AF SOUTH AFRICAN 44 mL/min/1.73m2 Critically low >=60 [facility] Comment on above: Performed By: #### B BRIM GREASER OPERATOR, CMADM, CMP #### [facility] [address] [address] [address] Kasia Nath Globulin (S) [Mass/Vol] 4.7 g/dL Normal [facility] Comment on above: Performed By: #### B BRIM GREASER OPERATOR, CMADM, CMP #### [facility] [address] [address] [address] Kasia Nath Glucose [Mass/Vol] 124 mg/dL Critically high 74-106 [facility] Comment on above: Performed By: #### B BRIM GREASER OPERATOR, CMADM, CMP #### [facility] [address] [place] [address] Dr. Kasia Nath Potassium [Moles/Vol] 3.2 mmol/L Critically low 3.5-5.1 [facility] Comment on above: Performed By: #### B BRIM GREASER OPERATOR, CMADM, CMP #### [facility] Laboratory [address] [place] [address] Dr. Kasia Nath Protein [Mass/Vol] 8.0 g/dL Normal 6.4-8.2 [facility] Comment on above: Performed By: #### B BRIM GREASER OPERATOR, CMADM, CMP #### [facility] [address] [place] [address] Dr. Kasia Nath Sodium [Moles/Vol] 137 mmol/L Normal 136-145 [facility] Comment on above: Performed By: #### B BRIM GREASER OPERATOR, CMADM, CMP #### [facility] [address] [place] [address] Dr. Kasia Nath Urea nitrogen [Mass/Vol] 29.0 mg/dL Critically high 7.0-18.0 [facility] Comment on above: Performed By: #### B BRIM GREASER OPERATOR, CMADM, CMP #### [facility] [address] [place] [address] Dr. Kasia Nath Urea nitrogen/Creatinine [Mass ratio] 24.4 mg/mg Normal [facility] Comment on above: Performed By: #### B BRIM GREASER OPERATOR, CMADM, CMP #### [facility] Laboratory [address] [place] [address] Dr. Kasia Nath TROPONIN, HIGH SENSITIVITYon 01-05-2023 HSTROP 18.4 pg/mL Normal 4.0-51.3 [facility] Comment on above: Result Comment: CUT- OFF POINTS HAVE BEEN ESTABLISHED BASED ON THE FOURTH UNIVERSAL DEFINITIONS OF MYOCARDIAL INFARCTION. THE UPPER REFERENCE LIMIT (URL) OF TROPONIN, DEFINED THE 99TH PERCENTILE OF cTnI DISTRIBUTION IN A REFERENCE POPULATION, HAS BEEN CONFIRMED THE DECISION THRESHOLD FOR ND DIAGNOSIS. Performed By: #### H STROPN ####[facility] [address] [place] [id number]. Kasia Nath XR CHEST 1 Von 01-05-2023 [...] Comment on above: Performed By: #### B BRIM GREASER OPERATOR, CMP ####[facility] [address] [place] [address]Dr. Kasia Nath CBC AUTO DIFFon 01-02-2023 BASO # 0.1 103/ul Normal 0.0-0.1 [facility] Comment on above: Performed By: #### P OCGLUC #### [facility] Laboratory [address] [place] [address] Dr. Kasia Nath Basophils/100 WBC (Bld) 0.9 % Normal 0.2-2.0 [facility] Comment on above: Performed By: #### P OCGLUC #### [facility] [address] [place] [address] Dr. Kasia Nath EO # 0.2 103/ul Normal 0.0-0.7 [facility] Comment on above: Performed By: #### P OCGLUC #### [facility] [address] [place] [address] Dr. Kasia Nath Eosinophils/100 WBC (Bld) 2.3 % Normal 0.9-7.0 [facility] Comment on above: Performed By: #### P OCGLUC #### [facility] [address] [place] [address] Dr. Kasia Nath Erythrocyte distribution width (RBC) [Ratio] 13.8 % Normal 11.0-15.0 [facility] Comment on above: Performed By: #### P OCGLUC #### [facility] [address] [place] [address] Dr. Kasia Nath Hematocrit (Bld) [Volume fraction] 35.5 % Critically low 36.0-48.0 [facility] Comment on above: Performed By: #### P OCGLUC #### [facility] [address] [place] [address] Dr. Kasia Nath Hemoglobin (Bld) [Mass/Vol] 11.6 g/dL Critically low 12.0-16.0 [facility] Comment on above: Performed By: #### P OCGLUC #### [facility] [address] [place] [address] Dr. Kasia Nath IG # 0.02 10e3/ul Normal 0.00-0.03 [facility] Comment on above: Performed By: #### P OCGLUC #### [facility] [address] [place] [address] Dr. Kasia Nath IG % 0.3 % Normal 0.0-0.5 [facility] Comment on above: Performed By: #### P OCGLUC #### [facility] [address] [place] [address] Dr. Kasia Nath LYMPH # 2.0 103/ul Normal 1.2-3.8 [facility] Comment on above: Performed By: #### P OCGLUC #### [facility] Laboratory [address] [place] [address] Dr. Kasia Nath Lymphocytes/100 WBC (Bld) 24.8 % Normal 20.5-60.0 [facility] Comment on above: Performed By: #### P OCGLUC #### [facility] [address] [place] [address] Dr. Kasia Nath MANUAL DIFF REQ NO Normal [facility] Comment on above: Performed By: #### P OCGLUC #### [facility] [address] [address] [address] Kasia Nath MCH (RBC) [Entitic mass] 28.7 pg Normal 26.7-34.0 [facility] Comment on above: Performed By: #### P OCGLUC #### [facility] [address] [address] [address] Kasia Nath MCHC (RBC) [Mass/Vol] 32.7 g/dL Normal 29.9-35.2 [facility] Comment on above: Performed By: #### P OCGLUC #### [facility] [address] [place] [address] Dr. Kasia Nath MCV (RBC) [Entitic vol] 87.9 fL Normal 81.0-99.0 [facility] Comment on above: Performed By: #### P OCGLUC #### [facility] [address] [place] [address] Dr. Kasia Nath MONO # 0.8 103/ul Normal 0.3-0.8 [facility] Comment on above: Performed By: #### P OCGLUC #### [facility] [address] [place] [address] Dr. Kasia Nath Monocytes/100 WBC (Bld) 9.6 % Normal 1.7-12.0 [facility] Comment on above: Performed By: #### P OCGLUC #### [facility] [address] [place] [address] Dr. Kasia Nath NEUT # 5.0 103/ul Normal 1.4-6.5 [facility] Comment on above: Performed By: #### P OCGLUC #### [facility] [address] [place] [address] Dr. Kasia Nath Neutrophils/100 WBC (Bld) 62.1 % Normal 43.0-75.0 [facility] Comment on above: Performed By: #### P OCGLUC #### [facility] [address] [place] [address] Dr. Kasia Nath Platelet mean volume (Bld) [Entitic vol] 10.7 fL Normal 9.5-13.5 [facility] Comment on above: Performed By: #### P OCGLUC #### [facility] [address] [address] [address] Kasia Nath PLT 204 103/ul Normal 150-450 [facility] Comment on above: Performed By: #### P OCGLUC #### [facility] [address] [address] [address] Kasia Nath RBC 4.04 106/ul Critically low 4.20-5.40 [facility] [place] Comment on above: Performed By: #### P OCGLUC #### [facility] Laboratory [address] [address] [address] Kasia Nath WBC 8.0 103/ul Normal 4.0-11.0 [facility] Comment on above: Performed By: #### P OCGLUC #### [facility] [address] [address] [address] Kasia Nath GLYCOHEMOGLOBIN A1Con 2022 ADA RECOMMENDATION SEE BELOW Normal [facility] Comment on above: Result Comment: ADA RECOMMENDED LIMIT 4.0 - 6.0 ADA THERAPEUTIC TARGET < 7.0 ACTION SUGGESTED > 7.0 Performed By: #### A 1C ####[facility] [address] [place] [address]Dr. Kasia Nath Glucose [Mass/Vol] 298 mg/dL Normal [facility] Comment on above: Performed By: #### A 1C ####[facility] [address] [place] [address]Dr. Kasia Nath HbA1c (Bld) [Mass fraction] 12.0 % Critically high 4.5-6.2 [facility] Comment on above: Performed By: #### A 1C ####[facility] [address] [place] [address]Dr. Kasia Nath POINT OF CARE GLUCOSEon 12-14 Glucose [Mass/Vol] 227 mg/dL Critically high 74-106 [facility] Comment on above: Performed By: #### C BC #### [facility] Laboratory [address] [address] [address] Kasia Nath Glucose [Mass/Vol] 214 mg/dL Critically high 74-106 [facility] Comment on above: Performed By: #### C BC #### [facility] [address] [address] [address] Kasia Nath PROF 14(COMP METB)on 023 Albumin [Mass/Vol] 2.6 g/dL Critically low 3.4-5.0 [facility] Comment on above: Performed By: #### B BRIM GREASER OPERATOR, CMP ####[facility] [address] [place] [address]Dr. Kasia Nath Albumin/Globulin [Mass ratio] 0.6 {ratio} Normal [facility] Comment on above: Performed By: #### B BRIM GREASER OPERATOR, CMP ####[facility] [address] [place] [address]Dr. Kasia Nath ALP [Catalytic activity/Vol] 94 U/L Normal 46-116 [facility] Comment on above: Performed By: #### B BRIM GREASER OPERATOR, CMP ####[facility] [address] [place] [address]Dr. Kasia Nath ALT [Catalytic activity/Vol] 16 U/L Normal 14-59 [facility] Comment on above: Performed By: #### B BRIM GREASER OPERATOR, CMP ####[facility] [address] [place] [address]Dr. Kasia Nath Anion gap [Moles/Vol] 10.6 mmol/L Normal [facility] Comment on above: Performed By: #### B BRIM GREASER OPERATOR, CMP ####[facility] [address] [place] [address]Dr. Kasia Nath AST [Catalytic activity/Vol] 15 U/L Normal 15-37 [facility] Comment on above: Performed By: #### B BRIM GREASER OPERATOR, CMP ####[facility] [address] [place] [address]Dr. Kasia Nath Bilirubin [Mass/Vol] 0.8 mg/dL Normal 0.2-1.0 [facility] Comment on above: Performed By: #### B BRIM GREASER OPERATOR, CMP ####[facility] [address] [place] [id number]. Kasia Nath Calcium [Mass/Vol] 8.5 mg/dL Normal 8.5-10.1 [facility] Comment on above: Performed By: #### B BRIM GREASER OPERATOR, CMP ####[facility] [address] [place] [id number]. Kasia Naht Chloride [Moles/Vol] 102 mmol/L Normal 98-107 [facility] Comment on above: Performed By: #### B BRIM GREASER OPERATOR, CMP ####[facility] [address] [place] [id number]. Kasia Nath CO2 [Moles/Vol] 30.2 mmol/L Normal 21.0-32.0 [facility] Comment on above: Performed By: #### B BRIM GREASER OPERATOR, CMP ####[facility] [address] [place], [place] [address]Dr. Kasia Nath Creatinine [Mass/Vol] 0.94 mg/dL Normal 0.55-1.02 [facility] Comment on above: Performed By: #### B BRIM GREASER OPERATOR, CMP ####[facility] [address] [place], [place] [address]Dr. Kasia Nath EGFR-AF SOUTH AFRICAN >60 Normal >=60 [facility] Comment on above: Performed By: #### B BRIM GREASER OPERATOR, CMP ####[facility] [address] [place], [place] [address]Dr. Kasia Portillo EGFR-NON AF SOUTH AFRICAN 58 mL/min/1.73m2 Critically low >=60 [facility] Comment on above: Performed By: #### B BRIM GREASER OPERATOR, CMP ####[facility] [address] [place] [id number]. Kasia Portillo Globulin (S) [Mass/Vol] 4.0 g/dL Normal [facility] Comment on above: Performed By: #### B BRIM GREASER OPERATOR, CMP ####[facility] [address] [place] [id number]. Fartuncristy Portillo Glucose [Mass/Vol] 150 mg/dL Critically high 74-106 [facility] Comment on above: Performed By: #### B BRIM GREASER OPERATOR, CMP ####[facility] [id number] [address]Dr. Kasia Nath Potassium [Moles/Vol] 3.8 mmol/L Normal 3.5-5.1 [facility] Comment on above: Performed By: #### B BRIM GREASER OPERATOR, CMP ####[facility] [id number] [address]Dr. Kasia Nath Protein [Mass/Vol] 6.6 g/dL Normal 6.4-8.2 [facility] Comment on above: Performed By: #### B BRIM GREASER OPERATOR, CMP ####[facility] [address] [address]Dr. Kasia Nath Sodium [Moles/Vol] 139 mmol/L Normal 136-145 [facility] Comment on above: Performed By: #### B BRIM GREASER OPERATOR, CMP ####[facility] [id number] [address]Dr. Kasia Nath Urea nitrogen [Mass/Vol] 24.0 mg/dL Critically high 7.0-18.0 [facility] Comment on above: Performed By: #### B BRIM GREASER OPERATOR, CMP ####[facility] [address] [place], [place] [address]Dr. Kasia Nath Urea nitrogen/Creatinine [Mass ratio] 25.5 mg/mg Normal [facility] Comment on above: Performed By: #### B BRIM GREASER OPERATOR, CMP ####[facility] [id number] [address]Dr. Kasia Nath BNPon 01-01-2023 Natriuretic peptide B (Bld) [Mass/Vol] 1419.0 pg/mL Normal <=1,800.0 [facility] Comment on above: Performed By: #### B BRIM GREASER OPERATOR #### [facility] Laboratory [address] [address] [address] Kasia Nath CARDIAC EMERY 3-6on 3 CK [Catalytic activity/Vol] 80 U/L Normal 26-192 [facility] Comment on above: Performed By: #### P OCGLUC #### [facility] Laboratory [address] [place] [address] Dr. Kasia Nath CK.MB [Mass/Vol] 1.85 ng/mL Normal <=3.60 [facility] Comment on above: Performed By: #### P OCGLUC #### [facility] Laboratory [address] [place] [address] Dr. Kasia Nath HSTROP 13.2 pg/mL Normal 4.0-51.3 [facility] Comment on above: Result Comment: CUT- OFF POINTS HAVE BEEN ESTABLISHED BASED ON THE FOURTH UNIVERSAL DEFINITIONS OF MYOCARDIAL INFARCTION. THE UPPER REFERENCE LIMIT (URL) OF TROPONIN, DEFINED THE 99TH PERCENTILE OF cTnI DISTRIBUTION IN A REFERENCE POPULATION, HAS BEEN CONFIRMED THE DECISION THRESHOLD FOR ND DIAGNOSIS. Performed By: #### P OCGLUC #### [facility] Laboratory [address] [place] [address] Dr. Kasia Nath CK [Catalytic activity/Vol] 73 U/L Normal 26-192 [facility] Comment on above: Performed By: #### P OCGLUC #### [facility] Laboratory [address] [place] [address] Dr. Kasia Nath CK.MB [Mass/Vol] 1.71 ng/mL Normal <=3.60 [facility] Comment on above: Performed By: #### P OCGLUC #### [facility] Laboratory [address] [place] [address] Dr. Kasia Nath HSTROP 13.6 pg/mL Normal 4.0-51.3 [facility] Comment on above: Result Comment: CUT- OFF POINTS HAVE BEEN ESTABLISHED BASED ON THE FOURTH UNIVERSAL DEFINITIONS OF MYOCARDIAL INFARCTION. THE UPPER REFERENCE LIMIT (URL) OF TROPONIN, DEFINED THE 99TH PERCENTILE OF cTnI DISTRIBUTION IN A REFERENCE POPULATION, HAS BEEN CONFIRMED THE DECISION THRESHOLD FOR ND DIAGNOSIS. Performed By: #### P OCGLUC #### [facility] Laboratory [address] [place] [address] Dr. Kasia Nath CARDIAC EMERY ADMITon 023 CK [Catalytic activity/Vol] 71 U/L Normal 26-192 [facility] Comment on above: Performed By: #### C BC #### [facility] Laboratory [address] [place] [address] Dr. Kasia Nath CK.MB [Mass/Vol] 1.69 ng/mL Normal <=3.60 [facility] Comment on above: Performed By: #### C BC #### [facility] Laboratory [address] [place] [address] Dr. Kasia Nath HSTROP 13.0 pg/mL Normal 4.0-51.3 [facility] Comment on above: Result Comment: CUT- OFF POINTS HAVE BEEN ESTABLISHED BASED ON THE FOURTH UNIVERSAL DEFINITIONS OF MYOCARDIAL INFARCTION. THE UPPER REFERENCE LIMIT (URL) OF TROPONIN, DEFINED THE 99TH PERCENTILE OF cTnI DISTRIBUTION IN A REFERENCE POPULATION, HAS BEEN CONFIRMED THE DECISION THRESHOLD FOR ND DIAGNOSIS. Performed By: #### C BC #### [facility] Laboratory [address] [place] [address] Dr. Kasia Nath GRETTA 75 ng/mL Normal 9-82 [facility] Comment on above: Performed By: #### C BC #### [facility] Laboratory [address] [place] [address] Dr. Kasia Nath CBC AUTO DIFFon 01-01-2023 BASO # 0.1 103/ul Normal 0.0-0.1 [facility] Comment on above: Performed By: #### C BC #### [facility] Laboratory [address] [place] [address] Dr. Kasia Nath Basophils/100 WBC (Bld) 1.1 % Normal 0.2-2.0 [facility] Comment on above: Performed By: #### C BC #### [facility] Laboratory [address] [place] [address] Dr. Kasia Nath EO # 0.2 103/ul Normal 0.0-0.7 [facility] Comment on above: Performed By: #### C BC #### [facility] [address] [place] [address] Dr. Kasia Nath Eosinophils/100 WBC (Bld) 2.9 % Normal 0.9-7.0 [facility] Comment on above: Performed By: #### C BC #### [facility] Laboratory [address] [place] [address] Dr. Kasia Nath Erythrocyte distribution width (RBC) [Ratio] 13.8 % Normal 11.0-15.0 [facility] Comment on above: Performed By: #### C BC #### [facility] [address] [place] [address] Dr. Kasia Nath Hematocrit (Bld) [Volume fraction] 36.2 % Normal 36.0-48.0 [facility] Comment on above: Performed By: #### C BC #### [facility] [address] [place] [address] Dr. Kasia Nath Hemoglobin (Bld) [Mass/Vol] 12.1 g/dL Normal 12.0-16.0 [facility] Comment on above: Performed By: #### C BC #### [facility] [address] [place] [address] Dr. Kasia Nath IG # 0.02 10e3/ul Normal 0.00-0.03 [facility] Comment on above: Performed By: #### C BC #### [facility] [address] [place] [address] Dr. Kasia Nath IG % 0.3 % Normal 0.0-0.5 [facility] Comment on above: Performed By: #### C BC #### [facility] [address] [place] [address] Dr. Kasia Nath LYMPH # 1.5 103/ul Normal 1.2-3.8 [facility] Comment on above: Performed By: #### C BC #### [facility] [address] [place] [address] Dr. Kasia Nath Lymphocytes/100 WBC (Bld) 19.9 % Critically low 20.5-60.0 [facility] Comment on above: Performed By: #### C BC #### [facility] [address] [place] [address] Dr. Kasia Nath MANUAL DIFF REQ NO Normal [facility] [place] Comment on above: Performed By: #### C BC #### [facility] [address] [place] [address] Dr. Kasia Nath MCH (RBC) [Entitic mass] 29.7 pg Normal 26.7-34.0 [facility] Comment on above: Performed By: #### C BC #### [facility] Laboratory [address] [address] [address] Kasia Nath MCHC (RBC) [Mass/Vol] 33.4 g/dL Normal 29.9-35.2 [facility] Comment on above: Performed By: #### C BC #### [facility] [address] [place] [address] Dr. Kasia Nath MCV (RBC) [Entitic vol] 88.9 fL Normal 81.0-99.0 [facility] Comment on above: Performed By: #### C BC #### [facility] [address] [place] [address] Dr. Kasia Nath MONO # 0.6 103/ul Normal 0.3-0.8 [facility] Comment on above: Performed By: #### C BC #### [facility] [address] [place] [address] Dr. Kasia Nath Monocytes/100 WBC (Bld) 8.0 % Normal 1.7-12.0 [facility] Comment on above: Performed By: #### C BC #### [facility] [address] [place] [address] Dr. Kasia Nath NEUT # 5.1 103/ul Normal 1.4-6.5 [facility] Comment on above: Performed By: #### C BC #### [facility] [address] [place] [address] Dr. Kasia Nath Neutrophils/100 WBC (Bld) 67.8 % Normal 43.0-75.0 [facility] Comment on above: Performed By: #### C BC #### [facility] Laboratory [address] [place] [address] Dr. Kasia Nath Platelet mean volume (Bld) [Entitic vol] 10.4 fL Normal 9.5-13.5 [facility] Comment on above: Performed By: #### C BC #### [facility] Laboratory [address] [place] [address] Dr. Kasia Nath PLT 200 103/ul Normal 150-450 [facility] Comment on above: Performed By: #### C BC #### [facility] [address] [place], [place] [address] Dr. Kasia Nath RBC 4.07 106/ul Critically low 4.20-5.40 [facility] [place] Comment on above: Performed By: #### C BC #### [facility] [address] [place], [place] [address] Dr. Kasia Nath WBC 7.5 103/ul Normal 4.0-11.0 [facility] Comment on above: Performed By: #### C BC #### [facility] [address] [place], [place] [address] CHEST WO CONon [...] two extremes (Agatston score 101-1000). [email or web address]://pubs.rsna.org/do i/[email or web address] Electronically authenticated by: RENETTA MICHAELS Date: 2023-01-01 14:55 Normal [facility] Covid-19 PCR (CVDTB)on 12-14 SARS-CoV-2 (COVID-19) RNA [...] for this test is supported by the [employer] of Health and Human Service's declaration that [...] longer be used). Performed By: #### C [facility] #### [facility] Laboratory [address] [place] [address] Dr. Kasia Nath ECHO LIMITED STUDYon 023 ECHO LIMITED STUDY Patient: SAIMA CALL Exam Date: 01/01/2023 : 1945 Gender:F Ordering : MARTINE GUERRERO . Admission #: [id number] Family : Order #: [id number] CLICK HERE TO VIEW EXAM ECHOCARDIOGRAM REPORT [...] M.D. on 01/01/2023 at 13:19 Normal [facility] GLYCOHEMOGLOBIN A1Con 2022 ADA RECOMMENDATION SEE BELOW Normal [facility] Comment on above: Result Comment: ADA RECOMMENDED LIMIT 4.0 - 6.0 ADA THERAPEUTIC TARGET < 7.0 ACTION SUGGESTED > 7.0 Performed By: #### P OCGLUC #### [facility] [address] [address] [address] Kasia Nath Glucose [Mass/Vol] 318 mg/dL Normal [facility] Comment on above: Performed By: #### P OCGLUC #### [facility] [address] [address] [address] Kasia Nath HbA1c (Bld) [Mass fraction] 12.7 % Critically high 4.5-6.2 [facility] Comment on above: Performed By: #### P OCGLUC #### [facility] [address] [address] [address] Kasia Nath POINT OF CARE GLUCOSEon 12-14 Glucose [Mass/Vol] 162 mg/dL Critically high -106 [facility] Comment on above: Performed By: #### P OCGLUC ####[facility] [address] [place], [place] [address]MpDr[address] Kasia Nath Glucose [Mass/Vol] 213 mg/dL Critically high 74-106 [facility] Comment on above: Performed By: #### P OCGLUC ####[facility] [id number] [id number]. Kasia Nath Glucose [Mass/Vol] 248 mg/dL Critically high -106 [facility] Comment on above: Performed By: #### P OCGLUC #### [facility] [address] [address] [address] Kasia Nath PROF CHEM 8 (BAS METB)on Anion gap [Moles/Vol] 11.8 mmol/L Normal [facility] [place] Comment on above: Performed By: #### C BC #### [facility] [address] [address] [address] Kasia Nath Calcium [Mass/Vol] 8.4 mg/dL Critically low 8.5-10.1 [facility] [place] Comment on above: Performed By: #### C BC #### [facility] [address] [place] [address] Dr. Kasia Nath Chloride [Moles/Vol] 102 mmol/L Normal 98-107 [facility] Comment on above: Performed By: #### C BC #### [facility] [address] [address] [address] Kasia Nath CO2 [Moles/Vol] 28.4 mmol/L Normal 21.0-32.0 [facility] Comment on above: Performed By: #### C BC #### [facility] [address] [address] [address] Kasia Nath Creatinine [Mass/Vol] 1.09 mg/dL Critically high 0.55-1.02 [facility] Comment on above: Performed By: #### C BC #### [facility] [address] [address] [address] Kasia Nath EGFR-AF SOUTH AFRICAN 59 mL/min/1.73m2 Critically low >=60 [facility] Comment on above: Performed By: #### C BC #### [facility] [address] [address] [address] Kasia Nath EGFR-NON AF SOUTH AFRICAN 49 mL/min/1.73m2 Critically low >=60 [facility] Comment on above: Performed By: #### C BC #### [facility] [address] [address] [address] Kasia Nath Glucose [Mass/Vol] 247 mg/dL Critically high 74-106 [facility] Comment on above: Performed By: #### C BC #### [facility] [address] [address] [address] Kasia Nath Potassium [Moles/Vol] 4.2 mmol/L Normal 3.5-5.1 [facility] Comment on above: Performed By: #### C BC #### [facility] [address] [address] [address] Kasia Nath Sodium [Moles/Vol] 138 mmol/L Normal 136-145 [facility] Comment on above: Performed By: #### C BC #### [facility] [address] [address] [address] Kasia Nath Urea nitrogen [Mass/Vol] 28.0 mg/dL Critically high 7.0-18.0 [facility] Comment on above: Performed By: #### C BC #### [facility] [address] [address] [address] Kasia Nath Urea nitrogen/Creatinine [Mass ratio] 25.7 mg/mg Normal [facility] Comment on above: Performed By: #### C BC #### [facility] [address] [address] [address] Kasia Nath XR CHEST 1 Von [...] Miranda ALVAREZ Date: 2023-01-01 05:38 Normal [facility] ECHOCARDIO M/2D COMPLETEon 1 11-15-2021 ECHOCARDIO M/2D COMPLETE Patient: JOE CALL Exam Date: 09/15/2022 : 1945 Gender:F Ordering : YAMEL PANDYA [facility] Admission #: [id number] Family : DR SHANTEL STEVEN M.D. Order #: [id number] CLICK HERE TO VIEW EXAM ECHOCARDIOGRAM REPORT [...] 40/41 Not detected Normal NOT DETECTED [facility] Comment on above: Performed By: #### P OCGLUC #### [facility] Laboratory [address] [place] [address] Dr. Kasia Nath Astrovirus Not detected Normal NOT DETECTED [facility] Comment on above: Performed By: #### P OCGLUC #### [facility] Laboratory [address] [place] [address] Dr. Kasia Nath C. Diff toxin A/B Not detected Normal NOT DETECTED [facility] Comment on above: Performed By: #### P OCGLUC #### [facility] [address] [place] [address] Dr. Kasia Nath Campylobacter Not detected Normal NOT DETECTED [facility] Comment on above: Performed By: #### P OCGLUC #### [facility] [address] [place] [address] Dr. Kasia Nath Cryptosporidium Not detected Normal NOT DETECTED [facility] Comment on above: Performed By: #### P OCGLUC #### [facility] Laboratory [address] [place] [address] Dr. Kasia Nath Cyclos. Cayetanensis Not detected Normal NOT DETECTED [facility] Comment on above: Performed By: #### P OCGLUC #### [facility] [address] [place] [address] Dr. Kasia Nath E. Coli O157 Not Applicable Normal Not Applicable [facility] Comment on above: Performed By: #### P OCGLUC #### [facility] [address] [place] [address] Dr. Kasia Nath E. histolytica Not detected Normal NOT DETECTED [facility] Comment on above: Performed By: #### P OCGLUC #### [facility] [address] [place] [address] Dr. Kasia Nath EAEC Not detected Normal NOT DETECTED [facility] Comment on above: Performed By: #### P OCGLUC #### [facility] [address] [place] [address] Dr. Kasia Nath EIEC Not detected Normal NOT DETECTED [facility] Comment on above: Performed By: #### P OCGLUC #### [facility] [address] [address] [address] Kasia Nath EPEC Detected Abnormal NOT DETECTED [facility] Comment on above: Performed By: #### P OCGLUC #### [facility] [address] [address] [address] Kasia Nath ETEC Not detected Normal NOT DETECTED [facility] Comment on above: Performed By: #### P OCGLUC #### [facility] [address] [address] [address] Kasia Nath G. Lamblia Not detected Normal NOT DETECTED [facility] Comment on above: Performed By: #### P OCGLUC #### [facility] [address] [place] [address] Dr. Kasia KHAN CONTROLS PASSED Normal [facility] Comment on above: Performed By: #### P OCGLUC #### [facility] [address] [address] [address] Kasia [facility] HEADER GI PANEL BACTERIA Normal [facility] Comment on above: Performed By: #### P OCGLUC #### [facility] [address] [place] [address] Dr. Kasia GE ECOLI GI PANEL DIARRHEAGEN IC E.COLI / SHIGELLA Normal [facility] Comment on above: Performed By: #### P OCGLUC #### [facility] [address] [place] [address] Dr. Kasia GE INFO SEE BELOW Normal [facility] Comment on above: Result Comment: EAEC - Enteroaggregative E. Coli EPEC- Enteropathogenic E. Coli ETEC- Enterotoxigenic E. Coli lt/st STEC- Shigella-like toxin-producing E. Coli stx1/stx2 EIEC- Shigella/Enteroinvasive E. Coli Performed By: #### P OCGLUC #### [facility] [address] [place] [address] Dr. Kasia GE PARASITES GI PANEL PARASITES Normal [facility] Comment on above: Performed By: #### P OCGLUC #### [facility] [address] [place] [address] Dr. Kasia Nath [facility] VIRUS GI PANEL VIRUSES Normal The [facility] Comment on above: Performed By: #### P OCGLUC #### [facility] [address] [place] [address] Dr. Kasia Nath Norovirus GI/GII Not detected Normal NOT DETECTED [facility] Comment on above: Performed By: #### P OCGLUC #### [facility] [address] [place] [address] Dr. Kasia Nath P. Shigelloides Not detected Normal NOT DETECTED [facility] Comment on above: Performed By: #### P OCGLUC #### [facility] [address] [place] [address] Dr. Kasia Nath Rotavirus A Not detected Normal NOT DETECTED [facility] Comment on above: Performed By: #### P OCGLUC #### [facility] [address] [place] [address] Dr. Kasia Nath Salmonella Not detected Normal NOT DETECTED [facility] Comment on above: Performed By: #### P OCGLUC #### [facility] [address] [place] [address] Dr. Kasia Nath Sapovirus Not detected Normal NOT DETECTED [facility] Comment on above: Performed By: #### P OCGLUC #### [facility] [address] [place] [address] Dr. Kasia Nath STEC Not detected Normal NOT DETECTED [facility] Comment on above: Performed By: #### P OCGLUC #### [facility] [address] [place] [address] Dr. Kasia Nath Vibrio Not detected Normal NOT DETECTED [facility] Comment on above: Performed By: #### P OCGLUC #### [facility] [address] [place] [address] Dr. Kasia Nath Vibrio Cholera Not detected Normal NOT DETECTED [facility] Comment on above: Performed By: #### P OCGLUC #### [facility] [address] [place] [address] Dr. Kasia Nath Y. Enterocolitica Not detected Normal NOT DETECTED [facility] Comment on above: Performed By: #### P OCGLUC #### [facility] Laboratory [address] [address] [address] Kasia Nath OCC BLD IMMUNO SCREENon 04-13 OCCULT BLOOD Negative Normal NEGATIVE [facility] Comment on above: Performed By: #### C BC #### [facility] [address] [address] [address] Kasia Nath XR knee BI 4Von 08-25-2021 XR knee BI 4V [facility] [employer] Other XR knee BI 4V [facility] [employer] Other XR knee BI [address]V [address] [place] [address] [employer] Other XR knee BI 4V [address] [employer] Other XR knee BI 4V [facility] [employer] 3D Other XR knee BI 4V Signed [employer] Other XR knee BI 4V Patient: Joe Call MR#: [id number] [employer] Other XR knee BI 4V 0 [employer] Other XR knee BI 4V : 1945 Acct:[id number] [employer] Other XR knee BI 4V Age/Sex: 76 / F ADM Date: 08/25/21 [employer] Other XR knee BI 4V Loc: [facility] Room: Type : REG I [employer] Other XR knee BI 4V Attending Dr: Akbar Cui II, MD [employer] Other XR knee BI 4V Ordering Provider: Akbar Cui MD [employer] Other XR knee BI 4V Date of Service: 08/25/21 [employer] Other XR knee BI 4V XR/XR knee BI 4V: Pain in right knee;Pain in left knee [employer] Other XR knee BI 4V Copies to: Akbar Cui MD [employer] Other XR knee BI 4V XR knee BI 4V 2020 1:32 PM [employer] Other XR knee BI 4V SIGNS AND SYMPTOMS: Bilateral knee pain with decreased range of motion, weakness [employer] Other XR knee BI 4V PROTOCOL: Frontal, lateral, and sunrise views of the bilateral knees [employer] Other XR knee BI 4V COMPARISON: None [employer] Other XR knee BI 4V FINDINGS: [employer] Other XR knee BI 4V There is mild narrow ing of the medial weightbearing joint spaces. There is mild patellofemoral [employer] Other XR knee BI 4V joint space loss. Th ere is spurring of the poles of the patella bilaterally. There is mild lateral [employer] Other XR knee BI 4V patellar subluxation bilaterally. There is no evidence of acute displaced fracture. Well-corticated [employer] Other XR knee BI 4V ossific structures o r separate from the right medial weightbearing joint space. This may represent a [employer] Other XR knee BI 4V calcified loose bodies. [employer] Other XR knee BI 4V X R/XR knee BI 4V [employer] Other XR knee BI 4V IMPRESSION: [employer] Other XR knee BI 4V Degenerative changes are noted are noted bilaterally, as above. [employer] Other XR knee BI 4V Well-corticated ossi fic structures or separate from the right medial weightbearing joint space. This [employer] Other XR knee BI 4V may represent a calcified loose bodies. [employer] Other XR knee BI 4V No acute displaced fracture. [employer] Other XR knee BI 4V There is mild latera l subluxation of the patella within the patellofemoral joint space bilaterally. [employer] Other XR knee BI 4V Impression dictated by: Emery Lobo M.D.08/25/2021 2:51 PM [employer] Other XR knee BI 4V Dictation Location: [place] [id number] [employer] Other XR knee BI 4V Transcribed By: [facility] 08/25/21 [facility] [employer] Other XR knee BI 4V Dictated By: Emery Lobo II, MD 08/25/21 [facility] [employer] Other XR knee BI 4V Signed By: [employer] Other XR knee BI 4V 08/25/21 [facility] [id number] Other XR pelvis 1-2Von 08-25-2021 XR pelvis 1-2V XR/XR pelvis 1-2V: Pain in right knee;Pain in left knee [employer] Other XR pelvis 1-2V XR pelvis 1-2V 08/25/2021 1:32 PM [employer] Other XR pelvis 1-2V SIGNS AND SYMPTOMS: Bilateral generalized knee pain, limited range of motion with weakness [employer] Other XR pelvis 1-2V PROTOCOL: Frontal radiograph of the pelvis [employer] Other XR pelvis 1-2V There is mild narrow ing of the weightbearing joint spaces. Mild degenerative changes are noted in [employer] Other XR pelvis 1-2V the symphysis pubis. There is no evidence of fracture or dislocation. Vascular calcifications are [employer] Other XR pelvis 1-2V present in the pelvis. [employer] Other XR pelvis 1-2V X R/XR pelvis 1-2V [employer] Other XR pelvis 1-2V No fracture or dislocation. [employer] Other XR pelvis 1-2V Mild degenerative changes are noted in the joint space of the hips. [employer] Other XR pelvis 1-2V Impression dictated by: Emery Lobo M.D.08/25/2021 2:54 PM [employer] Other XR pelvis 1-2V Transcribed By: [facility] 08/25/21 [facility] [employer] Other XR pelvis 1-2V Dictated By: Emery Lobo II, MD 08/25/21 [facility] [employer] Other XR pelvis 1-2V 08/25/21 [facility] [employer] Other Vital Signs Date Time Vital Sign Value Performing Clinician Facility 06-04-2025 10:170400 Body height 165.1 cm Shantel Steven MD Work Phone: [facility] 06-04-2025 10:17-0400 Body mass index (BMI) [Ratio] 43.9 kg/m2 Shantel Steven MD Work Phone: [facility] 06-04-2025 10:17-040 Body weight 119.74 kg Shantel Steven MD Work Phone: [facility] 06-04-2025 10:17-0400 Diastolic blood pressure 71 mm[Hg] Shantel Steven MD Work Phone: [facility] 06-04-2025 10:17-0400 Heart rate 57 /min Shantel Steven MD Work Phone: [facility] 06-04-2025 10:17-0400 Systolic blood pressure 161 mm[Hg] Shantel Steven MD Work Phone: [facility] 05-21-2025 11:08-0400 Body height 165.1 cm Shantel Steven MD Work Phone: [facility] 05-21-2025 11:08-0400 Body mass index (BMI) [Ratio] 44.7 kg/m2 Shantel Steven MD Work Phone: [facility] 05-21-2025 11:08-0400 Body weight 122.07 kg Shantel Steven MD Work Phone: [facility] 05-21-2025 11:08-0400 Diastolic blood pressure 93 mm[Hg] Shantel Steven MD Work Phone: [facility] 05-21-2025 11:08-0400 Heart rate 70 /min Shantel Steven MD Work Phone: [facility] 05-21-2025 11:08-0400 Respiratory rate 14 /min Shantel Steven MD Work Phone: [facility] 05-21-2025 11:08-0400 SaO2% (BldA) [Mass fraction] 95 % Shantel Steven MD Work Phone: [facility] 05-21-2025 11:08-0400 Systolic blood pressure 180 mm[Hg] Shantel Steven MD Work Phone: [facility] 04-21-2025 14:20-0400 Body height 165.1 cm Shantel Steven MD Work Phone: [facility] 04-21-2025 14:20-0400 Body mass index (BMI) [Ratio] 42.4 kg/m2 Shantel Steven MD Work Phone: [facility] 04-21-2025 14:20-0400 Body weight 115.66 kg Shantel Steven MD Work Phone: [facility] 04-21-2025 14:20-0400 Diastolic blood pressure 80 mm[Hg] Shantel Steven MD Work Phone: [facility] 04-21-2025 14:20-0400 Heart rate 63 /min Shantel Steven MD Work Phone: [facility] 04-21-2025 14:20-0400 Systolic blood pressure 165 mm[Hg] Shantel Steven MD Work Phone: [facility] 04-16-2025 10:20-0400 Body height 165.1 cm Shantel Steven MD Work Phone: [facility] 04-16-2025 10:20-0400 Body mass index (BMI) [Ratio] 42.4 kg/m2 Shantel Steven MD Work Phone: [facility] 04-16-2025 10:20-0400 Body weight 115.66 kg Shantel Steven MD Work Phone: [facility] 04-16-2025 10:20-0400 Diastolic blood pressure 77 mm[Hg] Shantel Steven MD Work Phone: [facility] 04-16-2025 10:20-0400 Heart rate 63 /min Shantel Steven MD Work Phone: [facility] 04-16-2025 10:20-0400 Respiratory rate 12 /min Shantel Steven MD Work Phone: [facility] 04-16-2025 10:20-0400 SaO2% (BldA) [Mass fraction] 96 % Shantel Steven MD Work Phone: [facility] 04-16-2025 10:20-0400 Systolic blood pressure 137 mm[Hg] Shantel Steven MD Work Phone: [facility] 03-24-2025 13:57-0400 Body height 165.1 cm Shantel Steven MD Work Phone: [facility] 03-24-2025 13:57-0400 Body mass index (BMI) [Ratio] 42.3 kg/m2 Shantel Steven MD Work Phone: [facility] 03-24-2025 13:57-0400 Body weight 115.21 kg Shantel Steven MD Work Phone: [facility] 03-24-2025 13:57-0400 Diastolic blood pressure 76 mm[Hg] Shantel Steven MD Work Phone: [facility] 03-24-2025 13:57-0400 Heart rate 56 /min Shantel Steven MD Work Phone: [facility] 03-24-2025 13:57-0400 Systolic blood pressure 179 mm[Hg] Shantel Steven MD Work Phone: [facility] 03-12-2025 19:10-0400 Diastolic blood pressure 69 mm[Hg] Shantel Steven MD Work Phone: [facility] 03-12-2025 19:10-0400 Heart rate 57 /min Shantel Steven MD Work Phone: [facility] 03-12-2025 19:10-0400 Respiratory rate 18 /min Shantel Steven MD Work Phone: [facility] 03-12-2025 19:10-0400 SaO2% (BldA) [Mass fraction] 99 % Shantel Steven MD Work Phone: [facility] 03-12-2025 19:10-0400 Systolic blood pressure 164 mm[Hg] Shantel Steven MD Work Phone: [facility] 03-12-2025 13:45-0400 Body height 165.1 cm Shantel Steven MD Work Phone: [facility] 03-12-2025 13:45-0400 Body weight 114.7 kg Shantel Steven MD Work Phone: [facility] 03-12-2025 13:44-0400 Body temperature 97.6 [degF] Shantel Steven MD Work Phone: [facility] 03-10-2025 11:05-0400 Body height 165.1 cm [facility] 03-10-2025 11:05-0400 Body mass index (BMI) [Ratio] 41.1 kg/m2 [facility] 03-10-2025 11:05-0400 Body weight 112.1 kg [facility] 03-10-2025 11:05-0400 Diastolic blood pressure 70 mm[Hg] [facility] 03-10-2025 11:05-0400 Systolic blood pressure 145 mm[Hg] [facility] 02-19-2025 08:58-0400 Body height 165.1 cm [facility] 02-19-2025 08:58-0400 Body mass index (BMI) [Ratio] 41.1 kg/m2 [facility] 02-19-2025 08:58-0400 Body temperature 97.3 [degF] [facility] 02-19-2025 08:58-0400 Body weight 112.09 kg [facility] 02-19-2025 08:58-0400 Diastolic blood pressure 58 mm[Hg] [facility] 02-19-2025 08:58-0400 Heart rate 68 /min [facility] 02-19-2025 08:58-0400 Respiratory rate 18 /min [facility] 02-19-2025 08:58-0400 SaO2% (BldA) [Mass fraction] 96 % [facility] 02-19-2025 08:58-0400 Systolic blood pressure 147 mm[Hg] [facility] 02-09-2025 14:03-0400 Body height 165.1 cm [facility] 02-09-2025 14:03-0400 Body mass index (BMI) [Ratio] 42.5 kg/m2 [facility] 02-09-2025 14:03-0400 Body weight 116.11 kg [facility] 02-09-2025 14:03-0400 Diastolic blood pressure 78 mm[Hg] [facility] 02-09-2025 14:03-0400 Heart rate 79 /min [facility] 02-09-2025 14:03-0400 Respiratory rate 12 /min [facility] 02-09-2025 14:03-0400 Systolic blood pressure 185 mm[Hg] [facility] 01-14-2025 10:00-0500 Body height 165.1 cm Shantel Steven MD Work Phone: [facility] 01-14-2025 10:00-0500 Body mass index (BMI) [Ratio] 44.3 kg/m2 Shantel Steven MD Work Phone: [facility] 01-14-2025 10:00-0500 Body weight 120.88 kg Shantel Steven MD Work Phone: [facility] 01-14-2025 10:00-0500 Diastolic blood pressure 80 mm[Hg] Shantel Steven MD Work Phone: [facility] 01-14-2025 10:00-0500 Heart rate 66 /min Shantel Steven MD Work Phone: [facility] 01-14-2025 10:00-0500 SaO2% (BldA) [Mass fraction] 93 % Shantel Steven MD Work Phone: [facility] 01-14-2025 10:00-0500 Systolic blood pressure 176 mm[Hg] Shantel Steven MD Work Phone: [facility] 01-06-2025 15:22-0500 Body height 165.1 cm Shantel Steven MD Work Phone: [facility] 01-06-2025 15:22-0500 Body mass index (BMI) [Ratio] 44.7 kg/m2 Shantel Steven MD Work Phone: [facility] 01-06-2025 15:22-0500 Body weight 122.01 kg Shantel Steven MD Work Phone: [facility] 01-06-2025 15:22-0500 Diastolic blood pressure 83 mm[Hg] Shantel Steven MD Work Phone: [facility] 01-06-2025 15:22-0500 Heart rate 66 /min Shantel Steven MD Work Phone: [facility] 01-06-2025 15:22-0500 Systolic blood pressure 155 mm[Hg] Shantel Steven MD Work Phone: [facility] 12-26-2024 12:58-0500 Body height 165.1 cm Jorge Luis Tupa DO Work Phone: [facility] 12-26-2024 12:58-0500 Body mass index (BMI) [Ratio] 43.6 kg/m2 Jorge Luis Tupa DO Work Phone: [facility] 12-26-2024 12:58-0500 Body weight 118.84 kg Jorge Luis Tupa DO Work Phone: [facility] 12-26-2024 12:58-0500 Diastolic blood pressure 79 mm[Hg] Jorge Luis Tupa DO Work Phone: [facility] 12-26-2024 12:58-0500 Heart rate 92 /min Jorge Luis Tupa DO Work Phone: [facility] 12-26-2024 12:58-0500 SaO2% (BldA) [Mass fraction] 97 % Jorge Luis Tupa DO Work Phone: [facility] 12-26-2024 12:58-0500 Systolic blood pressure 175 mm[Hg] Jorge Luis Tupa DO Work Phone: [facility] 12-09-2024 13:33-0500 Body height 165.1 cm Jorge Luis Tupa DO Work Phone: [facility] 12-09-2024 13:33-0500 Body mass index (BMI) [Ratio] 43.4 kg/m2 Jorge Luis Tupa DO Work Phone: [facility] 12-09-2024 13:33-0500 Body weight 118.55 kg Jorge Luis Tupa DO Work Phone: [facility] 12-09-2024 13:33-0500 Diastolic blood pressure 83 mm[Hg] Jorge Luis Tupa DO Work Phone: [facility] 12-09-2024 13:33-0500 Heart rate 81 /min Jorge Luis Tupa DO Work Phone: [facility] 12-09-2024 13:33-0500 Respiratory rate 14 /min Jorge Luis Tupa DO Work Phone: [facility] 12-09-2024 13:33-0500 Systolic blood pressure 156 mm[Hg] Jorge Luis Tupa DO Work Phone: [facility] 11-11-2024 13:46-0500 Body height 165.1 cm Jorge Luis Tupa DO Work Phone: [facility] 11-11-2024 13:46-0500 Body mass index (BMI) [Ratio] 41.1 kg/m2 Jorge Luis Tupa DO Work Phone: [facility] 11-11-2024 13:46-0500 Body temperature 97.3 [degF] Jorge Luis Tupa DO Work Phone: [facility] 11-11-2024 13:46-0500 Body weight 112.03 kg Jorge Luis Tupa DO Work Phone: [facility] 11-11-2024 13:46-0500 Diastolic blood pressure 84 mm[Hg] Jorge Luis Tupa DO Work Phone: [facility] 11-11-2024 13:46-0500 Heart rate 95 /min Jorge Luis Tupa DO Work Phone: [facility] 11-11-2024 13:46-0500 Respiratory rate 16 /min Jorge Luis Tupa DO Work Phone: [facility] 11-11-2024 13:46-0500 SaO2% (BldA) [Mass fraction] 96 % Jorge Luis Tupa DO Work Phone: [facility] 11-11-2024 13:46-0500 Systolic blood pressure 145 mm[Hg] Jorge Luis Tupa DO Work Phone: [facility] 11-03-2024 11:43-0500 Body height 165.1 cm Jorge Luis Tupa DO Work Phone: [facility] 11-03-2024 11:43-0500 Body mass index (BMI) [Ratio] 41.1 kg/m2 Jorge Luis Tupa DO Work Phone: [facility] 11-03-2024 11:43-0500 Body weight 112.03 kg Jorge Luis Tupa DO Work Phone: [facility] 11-03-2024 11:43-0500 Diastolic blood pressure 70 mm[Hg] Jorge Luis Tupa DO Work Phone: [facility] 11-03-2024 11:43-0500 Heart rate 78 /min Jorge Luis Tupa DO Work Phone: [facility] 11-03-2024 11:43-0500 SaO2% (BldA) [Mass fraction] 97 % Jorge Luis Tupa DO Work Phone: [facility] 11-03-2024 11:43-0500 Systolic blood pressure 138 mm[Hg] Jorge Luis Tupa DO Work Phone: [facility] 10-25-2024 07:49-0500 Diastolic blood pressure 73 mm[Hg] Jorge Luis Tupa DO Work Phone: [facility] 10-25-2024 07:49-0500 Heart rate 85 /min Jorge Luis Tupa DO Work Phone: [facility] 10-25-2024 07:49-0500 Respiratory rate 18 /min Jorge Luis Tupa DO Work Phone: [facility] 10-25-2024 07:49-0500 SaO2% (BldA) [Mass fraction] 98 % Jorge Luis Tupa DO Work Phone: [facility] 10-25-2024 07:49-0500 Systolic blood pressure 135 mm[Hg] Jorge Luis Tupa DO Work Phone: [facility] 10-25-2024 05:58-0500 Body height 165.1 cm Jorge Luis Tupa DO Work Phone: [facility] 10-25-2024 05:58-0500 Body temperature 98 [degF] Jorge Luis Tupa DO Work Phone: [facility] 10-25-2024 05:58-0500 Body weight 122.92 kg Jorge Luis Tupa DO Work Phone: [facility] 10-22-2024 04:48-0500 Body height 165.1 cm Jorge Luis Tupa DO Work Phone: [facility] 10-22-2024 04:48-0500 Body temperature 98.5 [degF] Jorge Luis Tupa DO Work Phone: [facility] 10-22-2024 04:48-0500 Body weight 114.8 kg Jorge Luis Tupa DO Work Phone: [facility] 10-22-2024 04:48-0500 Diastolic blood pressure 68 mm[Hg] Jorge Luis Tupa DO Work Phone: [facility] 10-22-2024 04:48-0500 Heart rate 100 /min Jorge Luis Tupa DO Work Phone: [facility] 10-22-2024 04:48-0500 Respiratory rate 18 /min Jorge Luis Tupa DO Work Phone: [facility] 10-22-2024 04:48-0500 SaO2% (BldA) [Mass fraction] 97 % Jorge Luis Tupa DO Work Phone: [facility] 10-22-2024 04:48-0500 Systolic blood pressure 132 mm[Hg] Jorge Luis Tupa DO Work Phone: [facility] 10-20-2024 12:00-0500 Body temperature 97.4 [degF] Jorge Luis Tupa DO Work Phone: [facility] 10-20-2024 12:00-0500 Diastolic blood pressure 73 mm[Hg] Jorge Luis Tupa DO Work Phone: [facility] 10-20-2024 12:00-0500 Heart rate 98 /min Jorge Luis Tupa DO Work Phone: [facility] 10-20-2024 12:00-0500 Respiratory rate 20 /min Jorge Luis Tupa DO Work Phone: [facility] 10-20-2024 12:00-0500 SaO2% (BldA) [Mass fraction] 98 % Jorge Luis Tupa DO Work Phone: [facility] 10-20-2024 12:00-0500 Systolic blood pressure 116 mm[Hg] Jorge Luis Tupa DO Work Phone: [facility] 10-20-2024 05:57-0500 Body weight 110.9 kg Jorge Luis Tupa DO Work Phone: [facility] 10-17-2024 14:18-0500 Body height 165.1 cm Jorge Luis Tupa DO Work Phone: [facility] 10-01-2024 09:51-0500 Body height 165.1 cm Christel Chacon MD Work Phone: [facility] 10-01-2024 09:51-0500 Body mass index (BMI) [Ratio] 42.27 kg/m2 Christel Chacon MD Work Phone: [facility] 10-01-2024 09:51-0500 Body weight 115.21 kg Christel Chacon MD Work Phone: [facility] 10-01-2024 09:51-0500 Diastolic blood pressure 110 mm[Hg] Christel Chacon MD Work Phone: [facility] 10-01-2024 09:51-0500 Systolic blood pressure 138 mm[Hg] Christel Chacon MD Work Phone: [facility] 08-07-2024 10:04-0400 Body height 165.1 cm MD Shantel Steven Work Phone: [facility] 08-07-2024 10:04-0400 Body mass index (BMI) [Ratio] 43.1 kg/m2 MD Shantel Steven Work Phone: [facility] 08-07-2024 10:04-0400 Body weight 117.48 kg MD Shantel Steven Work Phone: [facility] 08-07-2024 10:04-0400 Diastolic blood pressure 69 mm[Hg] MD Shantel Steven Work Phone: [facility] 08-07-2024 10:04-0400 Heart rate 52 /min MD Shantel Steven Work Phone: [facility] 08-07-2024 10:04-0400 SaO2% (BldA) [Mass fraction] 93 % MD Shantel Steven Work Phone: [facility] 08-07-2024 10:04-0400 Systolic blood pressure 117 mm[Hg] MD Shantel Steven Work Phone: [facility] 07-22-2024 13:15-0400 Body height 165.1 cm Christel Chacon MD Work Phone: [facility] 07-22-2024 13:15-0400 Body mass index (BMI) [Ratio] 42.6 kg/m2 Christel Chacon MD Work Phone: [facility] 07-22-2024 13:15-0400 Body weight 116.12 kg Christel Chacon MD Work Phone: [facility] 07-22-2024 13:15-0400 Diastolic blood pressure 82 mm[Hg] Christel Chacon MD Work Phone: [facility] 07-22-2024 13:15-0400 Systolic blood pressure 130 mm[Hg] Christel hCacon MD Work Phone: [facility] 07-16-2024 10:20-0400 Body height 165.1 cm MD Shantel Steven Work Phone: [facility] 07-16-2024 10:20-0400 Body mass index (BMI) [Ratio] 43.1 kg/m2 MD Shantel Steven Work Phone: [facility] 07-16-2024 10:20-0400 Body weight 117.48 kg MD Shantel Steven Work Phone: [facility] 07-16-2024 10:20-0400 Diastolic blood pressure 80 mm[Hg] MD Shantel Steven Work Phone: [facility] 07-16-2024 10:20-0400 Heart rate 60 /min MD Shantel Steven Work Phone: [facility] 07-16-2024 10:20-0400 Systolic blood pressure 151 mm[Hg] MD Shantel Steven Work Phone: [facility] 07-10-2024 13:40-0400 Body height 165.1 cm Lizett Gillmor [employer] Work Phone: [facility] 07-10-2024 13:40-0400 Body mass index (BMI) [Ratio] 42.43 kg/m2 Lizett Gillmor [employer] Work Phone: [facility] 07-10-2024 13:40-0400 Body weight 115.67 kg Lizett Gillmor [employer] Work Phone: [facility] 07-10-2024 13:40-0400 Diastolic blood pressure 86 mm[Hg] Lizett Gillmor [employer] Work Phone: [facility] 07-10-2024 13:40-0400 Systolic blood pressure 132 mm[Hg] Lizett Gillmor [employer] Work Phone: [facility] 07-07-2024 11:41-0400 Body height 165.1 cm MD Shantel Steven Work Phone: [facility] 07-07-2024 11:41-0400 Body mass index (BMI) [Ratio] 42.4 kg/m2 MD Shantel Steven Work Phone: [facility] 07-07-2024 11:41-0400 Body weight 115.66 kg MD Shantel Steven Work Phone: [facility] 07-07-2024 11:41-0400 Diastolic blood pressure 79 mm[Hg] MD Shantel Steven Work Phone: [facility] 07-07-2024 11:41-0400 Heart rate 66 /min MD Shantel Steven Work Phone: [facility] 07-07-2024 11:41-0400 Systolic blood pressure 132 mm[Hg] MD Shantel Steven Work Phone: [facility] 06-16-2024 13:08-0400 Body height 165.1 cm MD Shantel Steven Work Phone: [facility] 06-16-2024 13:08-0400 Body mass index (BMI) [Ratio] 41.9 kg/m2 MD Shantel Steven Work Phone: [facility] 06-16-2024 13:08-0400 Body weight 114.3 kg MD Shantel Steven Work Phone: [facility] 06-16-2024 13:08-0400 Diastolic blood pressure 73 mm[Hg] MD Shantel Steven Work Phone: [facility] 06-16-2024 13:08-0400 Heart rate 55 /min MD Shantel Steven Work Phone: [facility] 06-16-2024 13:08-0400 Systolic blood pressure 137 mm[Hg] MD Shantel Steven Work Phone: [facility] 06-05-2024 11:51-0400 Body height 165.1 cm MD Shantel Steven Work Phone: [facility] 06-05-2024 11:51-0400 Body mass index (BMI) [Ratio] 43.2 kg/m2 MD Shantel Steven Work Phone: [facility] 06-05-2024 11:51-0400 Body temperature 96.6 [degF] MD Shantel Steven Work Phone: [facility] 06-05-2024 11:51-0400 Body weight 117.7 kg MD Shantel Steven Work Phone: [facility] 06-05-2024 11:51-0400 Diastolic blood pressure 74 mm[Hg] MD Shantel Steven Work Phone: [facility] 06-05-2024 11:51-0400 Heart rate 63 /min MD Shantel Steven Work Phone: [facility] 06-05-2024 11:51-0400 Respiratory rate 18 /min MD Shantel Steven Work Phone: [facility] 06-05-2024 11:51-0400 SaO2% (BldA) [Mass fraction] 97 % MD Shantel Steven Work Phone: [facility] 06-05-2024 11:51-0400 Systolic blood pressure 138 mm[Hg] MD Shantel Steven Work Phone: [facility] 05-22-2024 09:18-0400 Heart rate 55 /min MD Shantel Steven Work Phone: [facility] 05-22-2024 09:09-0400 Body temperature 97.8 [degF] MD Shantel Steven Work Phone: [facility] 05-22-2024 09:09-0400 Diastolic blood pressure 64 mm[Hg] MD Shantel Steven Work Phone: [facility] 05-22-2024 09:09-0400 Respiratory rate 22 /min MD Shantel Steven Work Phone: [facility] 05-22-2024 09:09-0400 SaO2% (BldA) [Mass fraction] 94 % MD Shantel Steven Work Phone: [facility] 05-22-2024 09:09-0400 Systolic blood pressure 140 mm[Hg] MD Shantel Steven Work Phone: [facility] 05-22-2024 09:08-0400 Body height 165.1 cm MD Shantel Steven Work Phone: [facility] 05-22-2024 09:08-0400 Body weight 117.48 kg MD Shantel Steven Work Phone: [facility] 05-19-2024 14:16-0400 Body height 165.1 cm MD Shantel Steven Work Phone: [facility] 05-19-2024 14:16-0400 Body mass index (BMI) [Ratio] 43.1 kg/m2 MD Shantel Steven Work Phone: [facility] 05-19-2024 14:16-0400 Body weight 117.48 kg MD Shantel Steven Work Phone: [facility] 05-19-2024 14:16-0400 Diastolic blood pressure 72 mm[Hg] MD Shantel Steven Work Phone: [facility] 05-19-2024 14:16-0400 Heart rate 56 /min MD Shantel Steven Work Phone: [facility] 05-19-2024 14:16-0400 Systolic blood pressure 133 mm[Hg] MD Shantel Steven Work Phone: [facility] 05-07-2024 11:52-0400 Body height 165.1 cm MD Shantel Steven Work Phone: [facility] 05-07-2024 11:52-0400 Body mass index (BMI) [Ratio] 41.5 kg/m2 MD Shantel Steven Work Phone: [facility] 05-07-2024 11:52-0400 Body temperature 98.5 [degF] MD Shantel Steven Work Phone: [facility] 05-07-2024 11:52-0400 Body weight 113.39 kg MD Shantel Steven Work Phone: [facility] 05-07-2024 11:52-0400 Diastolic blood pressure 81 mm[Hg] MD Shantel Steven Work Phone: [facility] 05-07-2024 11:52-0400 Heart rate 91 /min MD Shantel Steven Work Phone: [facility] 05-07-2024 11:52-0400 Systolic blood pressure 141 mm[Hg] MD Shantel Steven Work Phone: [facility] 04-29-2024 12:54-0400 Body height 165.1 cm MD Shantel Steven Work Phone: [facility] 04-29-2024 12:54-0400 Body mass index (BMI) [Ratio] 41.5 kg/m2 MD Shantel Steven Work Phone: [facility] 04-29-2024 12:54-0400 Body weight 113.39 kg MD Shantel Steven Work Phone: [facility] 04-29-2024 12:54-0400 Diastolic blood pressure 58 mm[Hg] MD Shantel Steven Work Phone: [facility] 04-29-2024 12:54-0400 Heart rate 54 /min MD Shantel Steven Work Phone: [facility] 04-29-2024 12:54-0400 Systolic blood pressure 90 mm[Hg] MD Shantel Steven Work Phone: [facility] 04-03-2024 11:29-0400 Body height 165.1 cm MD Shantel Steven Work Phone: [facility] 04-03-2024 11:29-0400 Body mass index (BMI) [Ratio] 43.7 kg/m2 MD Shantel Steven Work Phone: [facility] 04-03-2024 11:29-0400 Body weight 119.29 kg MD Shantel Steven Work Phone: [facility] 04-03-2024 11:29-0400 Diastolic blood pressure 71 mm[Hg] MD Shantel Steven Work Phone: [facility] 04-03-2024 11:29-0400 Heart rate 56 /min MD Shantel Steven Work Phone: [facility] 04-03-2024 11:29-0400 Systolic blood pressure 116 mm[Hg] MD Shantel Steven Work Phone: [facility] 03-25-2024 15:15-0400 Body height 165.1 cm MD Shantel Steven Work Phone: [facility] 03-25-2024 15:15-0400 Body mass index (BMI) [Ratio] 43.9 kg/m2 MD Shantel Steven Work Phone: [facility] 03-25-2024 15:15-0400 Body weight 119.74 kg MD Shantel Steven Work Phone: [facility] 03-25-2024 15:15-0400 Diastolic blood pressure 87 mm[Hg] MD Shantel Steven Work Phone: [facility] 03-25-2024 15:15-0400 Heart rate 66 /min MD Shantel Steven Work Phone: [facility] 03-25-2024 15:15-0400 Systolic blood pressure 125 mm[Hg] MD Shantel Steven Work Phone: [facility] 02-15-2024 14:18-0400 Body height 165.1 cm [facility] 02-15-2024 14:18-0400 Body mass index (BMI) [Ratio] 38.6 kg/m2 [facility] 02-15-2024 14:18-0400 Body weight 105.23 kg [facility] 02-15-2024 14:18-0400 Diastolic blood pressure 66 mm[Hg] [facility] 02-15-2024 14:18-0400 Heart rate 55 /min [facility] 02-15-2024 14:18-0400 Systolic blood pressure 114 mm[Hg] [facility] 01-18-2024 10:23-0500 Body height 165.1 cm [facility] 01-18-2024 10:23-0500 Body mass index (BMI) [Ratio] 43.2 kg/m2 [facility] 01-18-2024 10:23-0500 Body weight 117.93 kg [facility] 01-18-2024 10:23-0500 Diastolic blood pressure 70 mm[Hg] [facility] 01-18-2024 10:23-0500 Heart rate 98 /min [facility] 01-18-2024 10:23-0500 SaO2% (BldA) [Mass fraction] 65 % [facility] 01-18-2024 10:23-0500 Systolic blood pressure 110 mm[Hg] [facility] 10-23-2023 16:00-0500 Body height 165.1 cm Jaleesa Chemayis Other [employer] [facility] [employer] Other 10-23-2023 16:00-0500 Body mass index (BMI) [Ratio] 44.63 kg/m2 Jaleesa Chemayis Other [employer] Other 10-23-2023 16:00-0500 Body temperature 96.8 [degF] Aziz Chemayis Other [employer] Other 10-23-2023 16:00-0500 Body weight 121.66 kg Aziz Chemayis Other [employer] Other 10-23-2023 16:00-0500 Diastolic blood pressure 60 mm[Hg] Aziz Chemayis Other [employer] Other 10-23-2023 16:00-0500 Respiratory rate 18 /min Echographiz Chemayis Other [employer] Other 10-23-2023 16:00-0500 SaO2% (BldA) [Mass fraction] 99 % Jaleesa Vanessa Other [employer] Other 10-23-2023 16:00-0500 Systolic blood pressure 124 mm[Hg] Jaleesa Vanessa Other [employer] Other 10-18-2023 13:45-0500 Body height 165.1 cm Shantel Steven Other [employer] Other 10-18-2023 13:45-0500 Body mass index (BMI) [Ratio] 44.86 kg/m2 Shantel Steven Other [employer] Other 10-18-2023 13:45-0500 Body temperature 97.3 [degF] Shantel Steven Other [employer] Other 10-18-2023 13:45-0500 Body weight 122.29 kg Shantel Steven Other [employer] Other 10-18-2023 13:45-0500 Diastolic blood pressure 84 mm[Hg] Shantel Steven Other [employer] Other 10-18-2023 13:45-0500 SaO2% (BldA) [Mass fraction] 97 % Shantel Steven Other [employer] Other 10-18-2023 13:45-0500 Systolic blood pressure 132 mm[Hg] Shantel Steven Other [employer] Other 09-04-2023 14:00-0400 Body height 165.1 cm Shantel Steven Other [employer] Other 09-04-2023 14:00-0400 Body mass index (BMI) [Ratio] 43.06 kg/m2 Shantel Steven Other [employer] Other 09-04-2023 14:00-0400 Body weight 117.39 kg Shantel Steven Other [employer] Other 09-04-2023 14:00-0400 Diastolic blood pressure 69 mm[Hg] Shantel tSeven Other [employer] Other 09-04-2023 14:00-0400 Systolic blood pressure 127 mm[Hg] Shantel Steven Other [employer] Other 07-17-2023 10:00-0400 Body height 165.1 cm Shantel Steven Other [employer] Other 07-17-2023 10:00-0400 Body mass index (BMI) [Ratio] 43.03 kg/m2 Shantel Steven Other [employer] Other 07-17-2023 10:00-0400 Body weight 117.3 kg Shantel Steven Other [employer] Other 07-17-2023 10:00-0400 Diastolic blood pressure 76 mm[Hg] Shantel Steven Other [employer] Other 07-17-2023 10:00-0400 Systolic blood pressure 164 mm[Hg] Shantel Steven Other [employer] Other 04-30-2023 14:30-0400 Body height 165.1 cm Shantel Steven Other [employer] Other 04-30-2023 14:30-0400 Body mass index (BMI) [Ratio] 43.43 kg/m2 Shantel Steven Other [employer] Other 04-30-2023 14:30-0400 Body weight 118.39 kg Shantel Steven Other [employer] Other 04-30-2023 14:30-0400 Diastolic blood pressure 75 mm[Hg] Shantel Steven Other [employer] Other 04-30-2023 14:30-0400 Systolic blood pressure 135 mm[Hg] Shantel Steven Other [employer] Other 03-09-2023 12:15-0400 Body height 165.1 cm Shantel Steven Other [employer] Other 03-09-2023 12:15-0400 Body mass index (BMI) [Ratio] 43.59 kg/m2 Shantel Steven Other [employer] Other 03-09-2023 12:15-0400 Body weight 118.84 kg Shantel Steven Other [employer] Other 03-09-2023 12:15-0400 Diastolic blood pressure 82 mm[Hg] Shantel Steven Other [employer] Other 03-09-2023 12:15-0400 SaO2% (BldA) [Mass fraction] 97 % Shantel Steven Other [employer] Other 03-09-2023 12:15-0400 Systolic blood pressure 130 mm[Hg] Shantel Steven Other [employer] Other 02-20-2023 10:00-0400 Body height 165.1 cm Shantel Steven Other [employer] Other 02-20-2023 10:00-0400 Body mass index (BMI) [Ratio] 41.93 kg/m2 Shantel Steven Other [employer] Other 02-20-2023 10:00-0400 Body weight 114.31 kg Shantel Steven Other [employer] Other 02-20-2023 10:00-0400 Diastolic blood pressure 84 mm[Hg] Sahntel Steven Other [employer] Other 02-20-2023 10:00-0400 Systolic blood pressure 132 mm[Hg] Shantel Steven Other [employer] Other 08-04-2022 13:33-0400 Blood Pressure Location [facility] [place] 08-04-2022 13:33-0400 Diastolic blood pressure 88 mm[Hg] [facility] [place] 08-04-2022 13:33-0400 Heart rate 76 /min [facility] [place] 08-04-2022 13:33-0400 Respiratory rate 16 /min [facility] [place] 08-04-2022 13:33-0400 Systolic blood pressure 130 mm[Hg] Bin N[facility] [place] 08-25-2021 14:30-0400 Body height 165.1 cm Akbar Cui II Other [employer] Other 08-25-2021 14:30-0400 Body mass index (BMI) [Ratio] 43.26 kg/m2 Akbar Cui II Other [employer] Other 08-25-2021 14:30-0400 Body weight 117.94 kg Akbar Cui II Other [facility] [employer] Other Encounters Encounter Date Encounter Type Care Provider Facility Start: 06-15-2025 End: 06-15-2025 ambulatory Shantel Steven MD Work Phone: [facility] Work Phone: Start: 06-15-2025 End: 06-15-2025 Shantel Steven MD -[facility] Work Phone: Start: 06-10-2025 Wandy Alvarez [facility] Work Phone: Start: 06-10-2025 Osbaldo Marlow MD -[facility] Work Phone: Start: 06-09-2025 Osbaldo Marlow MD -[facility] Work Phone: Start: 06-08-2025 Jarred Cardona -[facility] Work Phone: Start: 06-04-2025 End: 06-04-2025 ambulatory Shantel Steven MD Work Phone: [facility] Work Phone: Start: 06-04-2025 End: 06-04-2025 Shantel Steven MD -[facility] Work Phone: Start: 06-02-2025 End: 06-02-2025 ambulatory Shantel Steven MD Work Phone: [facility] Work Phone: Start: 06-02-2025 End: 06-02-2025 Shantel Steven MD -[facility] Work Phone: Start: 05-31-2025 Monica Stewart MD -[facility] Work Phone: Start: 05-30-2025 Monica Stewart MD -[facility] Work Phone: Start: 05-29-2025 Monica Stewart MD -[facility] Work Phone: Start: 05-28-2025 Analisa Bryant MD [facility] Work Phone: Start: 05-21-2025 End: 05-21-2025 ambulatory Shantel Steven MD Work Phone: [facility] Work Phone: Start: 05-21-2025 End: 05-21-2025 Patient encounter procedure Shantel Steven MD -[facility] Work Phone: Start: 05-21-2025 End: 05-21-2025 Shantel Steven MD -[facility] Work Phone: Start: 05-13-2025 Non-patient / Non-visit Wandy Bowen [facility] -[facility] Work Phone: Start: 05-13-2025 Wandy Alvarez [facility] Work Phone: Start: 05-11-2025 Non-patient / Non-visit Cheng Ross [facility] Work Phone: Start: 05-11-2025 Cheng Ross [facility] Work Phone: Start: 04-22-2025 End: 04-22-2025 ambulatory [facility] Start: 04-21-2025 End: 04-21-2025 ambulatory Shantel Steven MD Work Phone: [facility] Work Phone: Start: 04-21-2025 End: 04-21-2025 Patient encounter procedure Cheng Ross [facility] Work Phone: Start: 04-21-2025 End: 04-21-2025 Shantel Steven MD Work Phone: [facility] Work Phone: Start: 04-16-2025 End: 04-16-2025 ambulatory Shantel Steven MD Work Phone: [facility] Work Phone: Start: 04-16-2025 End: 04-16-2025 Patient encounter procedure Shantel Steven MD -[facility] Work Phone: Start: 04-16-2025 End: 04-16-2025 Shantel Steven MD Work Phone: [facility] Work Phone: Start: 03-24-2025 End: 03-24-2025 ambulatory Shantel Steven MD Work Phone: [facility] Work Phone: Start: 03-24-2025 End: 03-24-2025 Patient encounter procedure Shantel Steven MD -[facility] Work Phone: Start: 03-24-2025 End: 03-24-2025 Shantel Steven MD Work Phone: [facility] Work Phone: Start: 03-13-2025 Non-patient / Non-visit Wandy Bowen C[facility] -[facility] Work Phone: Start: 03-13-2025 Shantel Cardona Work Phone: [facility] Work Phone: Start: 03-12-2025 End: 03-12-2025 Shantel Steven MD Work Phone: [facility] Work Phone: Start: 03-12-2025 End: 03-12-2025 Emergency department patient visit Shantel Steven MD Work Phone: [facility] Work Phone: Start: 03-10-2025 End: 03-10-2025 ambulatory [facility] Work Phone: Start: 03-10-2025 End: 03-10-2025 Patient encounter procedure [facility] Work Phone: Start: 03-10-2025 End: 03-10-2025 Shantel Steven MD Work Phone: [facility] Work Phone: Start: 03-02-2025 End: 03-02-2025 ambulatory [facility] Start: 03-02-2025 Non-patient / Non-visit [facility] Work Phone: Start: 03-02-2025 Shantel Cardona Work Phone: [facility] Work Phone: Start: 02-19-2025 End: 02-19-2025 ambulatory [facility] Work Phone: Start: 02-19-2025 End: 02-19-2025 Patient encounter procedure [facility] Work Phone: Start: 02-19-2025 End: 02-19-2025 Shantel Steven MD Work Phone: [facility] Work Phone: Start: 02-09-2025 End: 02-09-2025 ambulatory [facility] Work Phone: Start: 02-09-2025 End: 02-09-2025 Patient encounter procedure [facility] Work Phone: Start: 02-09-2025 End: 02-09-2025 Shantel Steven MD Work Phone: [facility] Work Phone: Start: 01-28-2025 End: 01-28-2025 ambulatory [facility] Start: 01-28-2025 Non-patient / Non-visit [facility] Work Phone: Start: 01-28-2025 Shantel Cardona Work Phone: [facility] Work Phone: Start: 01-27-2025 Non-patient / Non-visit [facility] Work Phone: Start: 01-27-2025 Shantel Cardona Work Phone: [facility] Work Phone: Start: 01-26-2025 Non-patient / Non-visit [facility] Work Phone: Start: 01-26-2025 Shantel Cardona Work Phone: [facility] Work Phone: Start: 01-25-2025 Non-patient / Non-visit [facility] Work Phone: Start: 01-25-2025 Shantel Cardona Work Phone: [facility] Work Phone: Start: 01-21-2025 End: 01-21-2025 ambulatory Shantel Steven MD Work Phone: [facility] Work Phone: Start: 01-21-2025 End: 01-21-2025 Patient encounter procedure Shantel Steven MD Work Phone: [facility] Work Phone: Start: 01-21-2025 End: 01-21-2025 Shantel Steven MD Work Phone: [facility] Work Phone: Start: 01-14-2025 End: 01-14-2025 ambulatory Shantel Steven MD Work Phone: [facility] Work Phone: Start: 01-14-2025 End: 01-14-2025 Patient encounter procedure Shantel Steven MD Work Phone: [facility] Work Phone: Start: 01-14-2025 End: 01-14-2025 Shantel Steven MD Work Phone: [facility] Work Phone: Start: 01-07-2025 End: 01-07-2025 Telephone encounter Christel Chacon MD Work Phone: [facility] Comment on above: referral to Dr Estrada baer Start: 01-06-2025 End: 01-06-2025 Patient encounter procedure Shantel Steven MD Work Phone: [facility] Work Phone: Start: 01-06-2025 End: 01-06-2025 Shantel Steven MD Work Phone: [facility] Work Phone: Start: 01-06-2025 End: 01-06-2025 Telephone encounter Christle Chacon MD Work Phone: [facility] Comment on above: sleep study appt Start: 12-26-2024 End: 12-26-2024 ambulatory Jorge Luis Vandana Zavala DO Work Phone: [facility] Work Phone: Start: 12-26-2024 End: 12-26-2024 Patient encounter procedure Jorge Luis Zavala DO Work Phone: [facility] Work Phone: Start: 12-26-2024 End: 12-26-2024 Shantel Steven MD Work Phone: [facility] Work Phone: Start: 12-18-2024 End: 12-18-2024 ambulatory FRANCHESCA PERAZA Facility:[facility] Start: 12-18-2024 End: 12-18-2024 Patient encounter procedure FRANCHESCA CUELLARRY [facility] Start: 12-09-2024 End: 12-09-2024 Patient encounter procedure Jorge Luis Camargopa DO Work Phone: [facility] Work Phone: Start: 12-08-2024 Non-patient / Non-visit Oni miranda Tupa DO Work Phone: [facility] Work Phone: Start: 12-08-2024 End: 12-08-2024 ambulatory FRANCHESCA PERAZA Facility:[facility] Start: 12-08-2024 End: 12-08-2024 Patient encounter procedure FRANCHESCA CUELLARRY [facility] Start: 12-04-2024 Non-patient / Non-visit Oni miranda Tupa DO Work Phone: [facility] Work Phone: Start: 12-04-2024 Non-patient / Non-visit Oni k Tupa DO Work Phone: [facility] Work Phone: Start: 12-02-2024 End: 12-02-2024 ambulatory [facility] Start: 11-13-2024 End: 11-13-2024 ambulatory FRANCHESCA PERAZA Facility:[facility] Start: 11-13-2024 End: 11-13-2024 Patient encounter procedure FRANCHESCA PERAZA [facility] Start: 11-11-2024 End: 11-11-2024 Patient encounter procedure Jorge Luis Zavala DO Work Phone: [facility] Work Phone: Start: 11-10-2024 Non-patient / Non-visit Onipamela Camargopa DO Work Phone: [facility] Work Phone: Start: 11-06-2024 ambulatory FRANCHESCA E STU Facili ty:[facility] Start: 11-04-2024 End: 11-04-2024 ambulatory FRANCHESCA E STU Facility:[facility] Start: 11-04-2024 End: 11-04-2024 Patient encounter procedure FRANCHESCA Jenny PERAZA [facility] [place] Start: 11-03-2024 End: 11-03-2024 Patient encounter procedure Jorge Luis Zavala DO Work Phone: [facility] Work Phone: Start: 10-31-2024 ambulatory [facility] Start: 10-25-2024 End: 10-25-2024 Emergency department patient visit Jorge Luis Zavala DO Work Phone: [facility]-Emergency Room Work Phone: Start: 10-24-2024 Non-patient / Non-visit Onipamela Camargopa DO Work Phone: [facility] Work Phone: Start: 10-22-2024 End: 10-22-2024 Emergency department patient visit Jorge Luis Camargopa DO Work Phone: [facility] Work Phone: Start: 10-21-2024 Non-patient / Non-visit Onipamela Camargopa DO Work Phone: [facility] Work Phone: Start: 10-17-2024 Non-patient / Non-visit Onipamela Camargopa DO Work Phone: [facility] Work Phone: Start: 10-17-2024 Non-patient / Non-visit Oni Camargopa DO Work Phone: [facility] Work Phone: Start: 10-16-2024 Non-patient / Non-visit Oni Cmaargopa DO Work Phone: [facility] Work Phone: Start: 10-16-2024 End: 10-20-2024 Evaluation and management of inpatient Jorge Luis Zavala DO Work Phone: [facility] [place] [facility] Work Phone: Start: 10-08-2024 End: 10-08-2024 ambulatory [facility] Start: 10-01-2024 End: 10-01-2024 Bamboo flowsheet Christel Chacon MD Work Phone: [facility] Start: 10-01-2024 End: 10-01-2024 Bamboo flowsheet Christel Chacon MD Work Phone: [facility] Start: 10-01-2024 End: 10-01-2024 Office outpatient visit 15 minutes Christel Chacon MD Work Phone: [facility] Comment on above: JED (obstructive sle ep apnea) (Primary Dx); Hypothyroidism (acquired) (CMS/HCC) Start: 10-01-2024 End: 10-01-2024 ambulatory CHRISTEL CHACON Not Available Start: 09-29-2024 Non-patient / Non-visit Oni Camargopa DO Work Phone: [facility] Work Phone: Start: 09-26-2024 End: 09-30-2024 Telephone encounter Christel Chacon MD Work Phone: [facility] Start: 09-03-2024 ambulatory [facility] Start: 08-20-2024 End: 08-20-2024 ambulatory [facility] Start: 08-07-2024 End: 08-07-2024 ambulatory MD Shantel Steven Work Phone: [facility] Work Phone: Start: 08-07-2024 End: 08-07-2024 Patient encounter procedure MD Shantel Steven Work Phone: [facility] Work Phone: Start: 07-30-2024 Non-patient / Non-visit MD Alessia Steven Work Phone: [facility] Work Phone: Start: 07-25-2024 Non-patient / Non-visit MD Alessia Steven Work Phone: [facility] Work Phone: Start: 07-24-2024 Non-patient / Non-visit MD Alessia Steven Work Phone: [facility] Work Phone: Start: 07-22-2024 End: [...] encounter procedure MD Shantel Steven Work Phone: [facility] Work Phone: Start: 07-17-2024 End: 07-17-2024 ambulatory MD Shantel Steven Work Phone: [facility] Work Phone: Start: 07-17-2024 End: 07-17-2024 Departed Referred MD Shantel Steven Work Phone: [facility] [place] Work Phone: Start: 07-17-2024 End: 07-17-2024 MD Shantel Steven Work Phone: [facility] Work Phone: Start: 07-16-2024 End: 07-16-2024 ambulatory MD Shantel Steven Work Phone: [facility] Work Phone: Start: 07-16-2024 End: 07-16-2024 Patient encounter procedure MD Shantel Steven Work Phone: [facility] Work Phone: Start: 07-16-2024 End: 07-16-2024 MD Shantel Steven Work Phone: [facility] Work Phone: Start: 07-15-2024 End: 07-15-2024 Non-patient / Non-visit MD Shantel Steven Work Phone: [facility] Work Phone: Start: 07-15-2024 Non-patient / Non-visit MD Alessia Steven Work Phone: [facility] Work Phone: Start: 07-15-2024 MD Shantel painting Work Phone: [facility] Work Phone: Start: 07-14-2024 Non-patient / Non-visit MD Alessia Steven Work Phone: [facility] Work Phone: Start: 07-14-2024 MD Shantel painting Work Phone: [facility] Work Phone: Start: 07-10-2024 End: 07-10-2024 Bamboo flowsheet Lizett Winstonr BRIM GREASER OPERATOR Work Phone: [employer] [facility] Start: 07-10-2024 End: 07-10-2024 Bamboo flowsheet Lizett Mariemor BRIM GREASER OPERATOR Work Phone: [employer] Start: 07-10-2024 End: 07-10-2024 Office outpatient visit 25 minutes Lizett Mariemor BRIM GREASER OPERATOR Work Phone: [employer] [facility] Comment on above: Essential tremor (Pr imary Dx); Diabetic polyneuropathy associated with type 2 diabetes mellitus (CMS/HCC); Balance disorder; Sensory ataxia; Debility; Weakness; Paresthesias Start: 07-10-2024 End: 07-10-2024 ambulatory LIZETT WINSTONR Not Available Start: 07-07-2024 End: 07-07-2024 ambulatory MD Shantel Steven Work Phone: [facility] Work Phone: Start: 07-07-2024 End: 07-07-2024 Patient encounter procedure MD Shantel Steven Work Phone: [facility] Work Phone: Start: 07-07-2024 End: 07-07-2024 MD Shantel Steven Work Phone: [facility] Work Phone: Start: 06-25-2024 ambulatory MD Shantel gray Work Phone: [facility] Work Phone: Start: 06-25-2024 Non-patient / Non-visit MD Alessia Steven Work Phone: [facility] Work Phone: Start: 06-25-2024 MD Shantel painting Work Phone: [facility] Work Phone: Start: 06-24-2024 Non-patient / Non-visit MD Alessia Steven Work Phone: [facility] Work Phone: Start: 06-24-2024 MD Shantel painting Work Phone: [facility] Work Phone: Start: 06-18-2024 End: 06-18-2024 ambulatory [facility] Start: 06-16-2024 End: 06-16-2024 ambulatory MD Shantel Steven Work Phone: [facility] Work Phone: Start: 06-16-2024 End: 06-16-2024 Patient encounter procedure MD Shantel Steven Work Phone: [facility] Work Phone: Start: 06-16-2024 End: 06-16-2024 MD Shantel Steven Work Phone: [facility] Work Phone: Start: 06-10-2024 Non-patient / Non-visit MD Alessia Steven Work Phone: [facility] Work Phone: Start: 06-10-2024 MD Shantel painting Work Phone: [facility] Work Phone: Start: 06-09-2024 Non-patient / Non-visit MD Alessia Steven Work Phone: [facility] Work Phone: Start: 06-09-2024 MD Shantel painting Work Phone: [facility] Work Phone: Start: 06-05-2024 End: 06-05-2024 ambulatory MD Shantel Steven Work Phone: [facility] Work Phone: Start: 06-05-2024 End: 06-05-2024 Patient encounter procedure MD Shantel Steven Work Phone: [facility] [place] Work Phone: Start: 06-05-2024 End: 06-05-2024 MD Shantel Steven Work Phone: [facility] [place] Work Phone: Start: 06-01-2024 Non-patient / Non-visit MD Alessia Steven Work Phone: [facility] Work Phone: Start: 06-01-2024 MD Shantel painting Work Phone: [facility] Work Phone: Start: 05-26-2024 Non-patient / Non-visit MD Alessia Steven Work Phone: [facility] Work Phone: Start: 05-26-2024 MD Shantel painting Work Phone: [facility] Work Phone: Start: 05-22-2024 End: 05-22-2024 Emergency department patient visit MD Shantel Steven Work Phone: [facility] Work Phone: Start: 05-22-2024 End: 05-22-2024 MD Shantel Steven Work Phone: [facility] Work Phone: Start: 05-20-2024 Non-patient / Non-visit MD Alessia Steven Work Phone: [facility] Work Phone: Start: 05-20-2024 MD Shantel painting Work Phone: [facility] Work Phone: Start: 05-19-2024 End: 05-19-2024 ambulatory MD Shantel Steven Work Phone: [facility] Work Phone: Start: 05-19-2024 End: 05-19-2024 Patient encounter procedure MD Shantel Steven Work Phone: [facility] Work Phone: Start: 05-19-2024 End: 05-19-2024 MD Shantel Steven Work Phone: [facility] Work Phone: Start: 05-07-2024 End: 05-07-2024 ambulatory MD Shantel Steven Work Phone: [facility] Work Phone: Start: 05-07-2024 End: 05-07-2024 Patient encounter procedure MD Shantel Steven Work Phone: [facility] Work Phone: Start: 05-07-2024 End: 05-07-2024 MD Shantel Steven Work Phone: [facility] Work Phone: Start: 05-06-2024 Non-patient / Non-visit MD Alessia Steven Work Phone: [facility] Work Phone: Start: 05-06-2024 MD Shantel painting Work Phone: [facility] Work Phone: Start: 05-05-2024 Non-patient / Non-visit MD Alessia Steven Work Phone: [facility] Work Phone: Start: 05-05-2024 MD Shantel painting Work Phone: [facility] Work Phone: Start: 05-04-2024 End: 05-06-2024 Non-patient / Non-visit MD Shantel Steven Work Phone: [facility] Work Phone: Start: 05-04-2024 End: 05-06-2024 MD Shantel Steven Work Phone: [facility] Work Phone: Start: 05-04-2024 Non-patient / Non-visit MD Alessia Steven Work Phone: [facility] Work Phone: Start: 05-04-2024 MD Shantel painting Work Phone: [facility] Work Phone: Start: 05-02-2024 Non-patient / Non-visit MD Alessia Steven Work Phone: [facility] Work Phone: Start: 05-02-2024 MD Shantel painting Work Phone: [facility] Work Phone: Start: 05-01-2024 Non-patient / Non-visit MD Alessia Steven Work Phone: [facility] Work Phone: Start: 05-01-2024 MD Shantel painting Work Phone: [facility] Work Phone: Start: 04-30-2024 Non-patient / Non-visit MD Alessia Steven Work Phone: [facility] Work Phone: Start: 04-30-2024 MD Shantel painting Work Phone: [facility] Work Phone: Start: 04-30-2024 Non-patient / Non-visit MD Alessia Steven Work Phone: [facility] Work Phone: Start: 04-30-2024 MD Shantel painting Work Phone: [facility] Work Phone: Start: 04-29-2024 End: 04-29-2024 Patient encounter procedure MD Shantel Steven Work Phone: [facility] Work Phone: Start: 04-29-2024 End: 04-29-2024 MD Shantel Steven Work Phone: [facility] Work Phone: Start: 04-03-2024 End: 04-03-2024 ambulatory MD Shantel Steven Work Phone: [facility] Work Phone: Start: 04-03-2024 End: 04-03-2024 Patient encounter procedure MD Shantel Steven Work Phone: [facility] Work Phone: Start: 04-03-2024 End: 04-03-2024 MD Shantel Steven Work Phone: [facility] Work Phone: Start: 04-01-2024 Non-patient / Non-visit MD Alessia Steven Work Phone: [facility] Work Phone: Start: 04-01-2024 MD Shantel painting Work Phone: [facility] Work Phone: Start: 03-31-2024 Non-patient / Non-visit MD Alessia Steven Work Phone: [facility] Work Phone: Start: 03-31-2024 MD Shantel painting Work Phone: [facility] Work Phone: Start: 03-28-2024 Non-patient / Non-visit MD Alessia Steven Work Phone: [facility] Work Phone: Start: 03-28-2024 MD Shantel painting Work Phone: [facility] Work Phone: Start: 03-27-2024 Non-patient / Non-visit MD Alessia Steven Work Phone: [facility] Work Phone: Start: 03-27-2024 MD Shantel painting Work Phone: [facility] Work Phone: Start: 03-26-2024 Non-patient / Non-visit MD Alessia Steven Work Phone: [facility] Work Phone: Start: 03-26-2024 MD Shantel painting Work Phone: [facility] Work Phone: Start: 03-25-2024 End: 03-25-2024 Patient encounter procedure MD Shantel Steven Work Phone: [facility] Work Phone: Start: 03-25-2024 End: 03-25-2024 MD Shantel Steven Work Phone: [facility] Work Phone: Start: 03-13-2024 End: 03-13-2024 ambulatory MD Shantel Steven Work Phone: [facility] Work Phone: Start: 03-13-2024 End: 03-13-2024 Patient encounter procedure MD Shantel Steven Work Phone: [facility] [address] Work Phone: Start: 02-19-2024 ambulatory [facility] Facility :[facility] Start: 02-15-2024 End: 02-15-2024 ambulatory [facility] Work Phone: Start: 02-15-2024 End: 02-15-2024 Patient encounter procedure [facility] Work Phone: Start: 01-29-2024 Non-patient / Non-visit [facility] Work Phone: Start: 01-24-2024 Non-patient / Non-visit [facility] Work Phone: Start: 01-22-2024 Non-patient / Non-visit [facility] Work Phone: Start: 01-18-2024 End: 01-18-2024 Patient encounter procedure [facility] Work Phone: Start: 01-15-2024 Non-patient / Non-visit [facility] Work Phone: Start: 01-04-2024 Non-patient / Non-visit [facility] Work Phone: Start: 12-18-2023 End: 12-18-2023 ambulatory Shantel Tenisha Other [employer] Other Start: 12-18-2023 Telephone encounter Shantel Tenisha [facility] Start: 11-19-2023 End: 11-19-2023 ambulatory Shantel Tenisha Other [employer] Other Start: 11-19-2023 Telephone encounter Shantel Tenisha [facility] Start: 10-23-2023 End: 10-23-2023 ambulatory Jaleesa Vanessa Other [employer] Other Start: 10-23-2023 Office outpatient ne w 30 minutes Azghassan Kochs [facility] [place] Start: 10-22-2023 End: 10-22-2023 ambulatory Shantel Tenisha Other [employer] Other Start: 10-22-2023 Telephone encounter Shantel Tenisha [facility] Start: 10-18-2023 End: 10-18-2023 ambulatory Shantel Tenisha Other [employer] Other Start: 10-18-2023 Office outpatient vi sit 15 minutes Shantel Tenisha [facility] Start: 09-07-2023 End: 09-07-2023 ambulatory Shantel Tenisha Other [employer] Other Start: 09-07-2023 Telephone encounter Shantel Steven [facility] Start: 09-04-2023 End: 09-04-2023 ambulatory Shantel Steven Other [employer] Other Start: 09-04-2023 Office outpatient vi sit 25 minutes Shantel Steven [facility] Start: 08-23-2023 End: 08-23-2023 ambulatory Shantel Steven Other [employer] Other Start: 08-23-2023 Telephone encounter Shantel Steven [facility] Start: 07-23-2023 End: 07-23-2023 ambulatory Shantel Steven Other [employer] Other Start: 07-23-2023 Telephone encounter Shantel Steven [facility] Start: 07-17-2023 End: 07-17-2023 ambulatory Shantel Steven Other [employer] Other Start: 07-17-2023 Office outpatient vi sit 25 minutes Shantel Steven [facility] Start: 05-30-2023 End: 05-30-2023 ambulatory Shantel Steven Other [employer] Other Start: 05-30-2023 Telephone encounter Shantel Steven [facility] Start: 05-22-2023 End: 05-22-2023 ambulatory Shantel Steven Other [employer] Other Start: 05-22-2023 Telephone encounter Shantel Steven [facility] Start: 05-16-2023 End: 05-16-2023 ambulatory Shantel Steven Other [employer] Other Start: 05-16-2023 Telephone encounter Shantel Steven [facility] Start: 05-07-2023 End: 05-07-2023 ambulatory Shantel Steven Other [employer] Other Start: 05-07-2023 Telephone encounter Shantel Steven [facility] Start: 04-30-2023 End: 04-30-2023 ambulatory Shantel Steven Other [employer] Other Start: 04-30-2023 Office outpatient vi sit 25 minutes Shantel Steven [facility] Start: 04-25-2023 End: 04-25-2023 ambulatory Shantel Steven Other [employer] Other Start: 04-25-2023 Telephone encounter Shantel Steven [facility] Start: 04-12-2023 End: 04-12-2023 ambulatory Shantel Steven Other [employer] Other Start: 04-12-2023 Telephone encounter Shantel Steven [facility] Start: 03-09-2023 End: 03-09-2023 ambulatory Shantel Steven Other [employer] Other Start: 03-09-2023 Office outpatient vi sit 15 minutes Shantel Steven [facility] Start: 03-07-2023 End: 03-07-2023 ambulatory Shantel Steven Other [employer] Other Start: 03-07-2023 Telephone encounter Shantel Steven [facility] Start: 03-06-2023 End: 03-06-[address] SHANTEL STEVEN Facility:[facility] Start: 03-05-2023 End: 03-05-2023 ambulatory Shantel Steven Other [employer] Other Start: 03-05-2023 Telephone encounter Shantel Steven [facility] Start: 02-26-2023 End: 02-26-2023 ambulatory Shantel Steven Other [employer] Other Start: 02-26-2023 Telephone encounter Shantel Steven [facility] Start: 02-24-2023 End: 02-24-[address] SHANTEL STEVEN Facility:[facility] Start: 02-23-2023 End: 02-23-2023 ambulatory Shantel Steven Other [employer] Other Start: 02-23-2023 Telephone encounter Shantel Steven [facility] Start: 02-20-2023 End: 02-20-2023 ambulatory Shantel Steven Other [employer] Other Start: 02-20-2023 Transitional care luz cabral srvc 14 day discharge Shantel Steven [facility] Start: 02-16-2023 End: 02-16-2023 ambulatory Shantel Steven Other [employer] Other Start: 02-16-2023 Telephone encounter Shantel Steven [facility] Start: 02-13-2023 End: 02-14-[address] SHANTEL STEVEN Facility:[facility] Start: 02-02-2023 End: 02-02-2023 ambulatory Shantel Steven Other [employer] Other Start: 02-02-2023 Telephone encounter Shantel Steven [facility] Start: 01-16-2023 End: 01-17-[address] DOCTOR CARMONA Facility:[facility] Start: 01-05-2023 End: 01-05-2023 ambulatory BIN ROJAS Facility:[facility] Start: 01-01-2023 End: 01-02-2023 ambulatory ANALISA BRYANT Facility:[facility] Start: 11-29-2022 End: 11-29-2022 ambulatory Shantel Steven Other [employer] Other Start: 11-29-2022 Telephone encounter Shantel Tenisha [facility] Start: 11-27-2022 End: 11-27-2022 ambulatory Shantel Steven Other [employer] Other Start: 11-27-2022 Telephone encounter Shantel Steven [facility] Start: 11-24-2022 End: 11-24-2022 ambulatory Shantel Steven Other [employer] Other Start: 11-24-2022 Telephone encounter Shantel Steven [facility] Start: 11-06-2022 ambulatory YAMEL PANDYA Facility :[facility] Start: 09-15-2022 End: 09-16-[address] SHANTEL STEVEN Facility:[facility] Start: 08-04-2022 End: 08-04-2022 Patient encounter procedure Bin SORENSON [facility] [place] Start: 05-02-2022 End: 05-02-[address] SHANTEL STEVEN Facility: Start: 08-25-2021 Office outpatient ne w 45 minutes [facility] Start: 08-09-2017 End: 08-12-2017 Ambulatory PROVIDER UNKNOWN Facility:[facility] Procedures Date Procedure Procedure Detail Performing Clinician Start: 06-02-2025 Urine culture Shantel Steven MD Work Phone: Start: 03-12-2025 Plain chest X-ray Shantel Steven MD Work Phone: Start: 10-25-2024 Viral nucleic acid assay Jorge Luis Tupa DO Work Phone: Start: 10-25-2024 Plain chest [...] Bin SORENSON Start: 11-12-1992 Bilateral mastectomy Bin NILL Cardiac catheterization [place] a[place] NILL Cholecystectomy Bin NILL Colonoscopy Bin NILL Decompression laminectomy Lenore magallon NILL Esophagogastroduodenoscopy Vandana ichmonse NILL Excision of iliac lymph nodes Bin NILL Facetectomy of vertebra [place] a[place] NILL Foraminotomy Bin NILL History of operative procedure on shoulder Bin NILL History of sigmoid colectomy Bin NILL Total abdominal hyst erectomy with bilateral salpingo-oophorectomy Bin NILL Plan of Treatment Date Care Activity Detail Author Start: 06-08-2025 [facility] Start: 06-02-2025 [facility] Start: 06-02-2025 Urine culture [facility] Start: 03-24-2025 Patient referral [facility] Work Phone: Start: 12-10-2024 Patient referral [facility] Work Phone: Start: 10-20-2024 [facility] Start: 10-16-2024 Consultation [facility] Start: 10-16-2024 Hospital admission [facility] Start: 10-16-2024 Referral to engineer and geologist [facility] Start: 10-16-2024 Drainage of Bladder with Drainage Device, Via Natural or Artificial Opening Drainage of Bladder with Drainage Device, Via Natural or Artificial Opening [facility] Start: 10-16-2024 Performance of Cardi ac Pacing, Continuous Performance of Cardiac Pacing, Continuous [facility] Start: 10-01-2024 End: 10-01-2024 Patient encounter procedure [facility] Comment on above: Arrived Start: 09-30-2024 End: 09-30-2024 Patient encounter procedure 09/30/2024 1:00 PM EST Office Visit [facility] [place] [address] [place] [id number] Wanda Patel DO [address] [place], [place] [id number] [facility] Start: 09-04-2024 End: 09-04-2024 Patient encounter procedure 09/04/2024 1:20 PM EDT Office Visit [facility] [place] [address] [place] [address] Lizett Jacinto, SHAUN [address] [place], [place] [facility] [place] [address] Start: 07-22-2024 End: 07-22-2024 Patient encounter procedure 07/22/2024 1:10 PM EDT Office Visit [facility] [address] [place] [id number] Christel Chacon MD [address] [place] [address] Arrived [facility] Comment on above: Arrived Start: 07-17-2024 Bacteria identified in Urine by Culture [facility] Start: 07-17-2024 [facility] Start: 07-15-2024 End: 07-15-2024 Patient encounter procedure 07/15/2024 1:10 PM EDT Office Visit [facility] [address] [place] [address] Christel Chacon MD [address] [place] [address] [facility] Start: 2024 Influenza vaccination Influenza Vacc ine (#1) [facility] Start: 07-10-2024 End: 07-10-2024 Patient encounter procedure 07/10/2024 1:40 PM EDT Office Visit [facility] [place] [address] [place] [address] Lizett Jacinto, BRIM GREASER OPERATOR [address] [place], [place] Arrived [facility] [place] [address] Comment on above: Arrived Start: 06-25-2024 Patient referral [facility] Work Phone: Start: 06-16-2024 Patient referral [facility] Work Phone: Start: 05-07-2024 Patient referral [facility] Work Phone: Start: 05-04-2024 Blood Culture 1 Blood Culture 1 [facility] Start: 02-15-2024 Patient referral [facility] Work Phone: Comprehensive metabo lic 2000 panel - Serum or Plasma [facility] Comprehensive metabo lic 1999 panel - Serum or Plasma [facility] CT Abdomen and Pelvi s WO contrast [facility] Microalbumin [Mass/volume] in Urine [facility] Patient Education [facility] Work Phone: Patient referral [facility] Work Phone: Renal function 1999 panel - Serum or Plasma [facility] Renal function 1999 panel - Serum or Plasma [facility] Renal function 1999 panel - Serum or Plasma [facility] US [facility] Immunizations Immunization Date Immunization Notes Care Provider Fa cility 01-18-2024 Pneumococcal Conjugate Vaccine, 20 valent [facility] 09-04-2023 influenza, high dose seasonal, preservative-free Shantel Steven Other [employer] Other 09-04-2023 influenza virus vaccine, unspecified formulation [facility] 02-04-2021 COVID-19 mRNA, Comirnaty (Pfizer) [facility] 01-21-2021 COVID-19 mRNA, Comirnaty (Pfizer) [facility] 10-09-2018 influenza virus vaccine, split virus (incl. purified surface antigen) Shantel Steven Other [employer] Other 10-09-2018 influenza virus vaccine, unspecified formulation [facility] NEGATED: Highlighted row has not occurred!10-17-2024 influenza, high dose seasonal, preservative-free Jorge Luis Zavala DO Work Phone: [facility] NEGATED: Highlighted row has not occurred!08-21-2019 influenza virus vaccine, split virus (incl. purified surface antigen) Shantel Steven Other [employer] Other Payers Date Payer Category Payer Medicare [id number] 2024 Self-pay [id number] 2023 Medicare [employer] MEDICARE ADVANTAGE HU[employer] MEDICARE [id number] 2023-Present [address] [place] [address] [id number] 2023 Medicare (Managed Care) [employer] EDICARE ADVANTAGE [id number] 1959 Medicare [id number] 1959 Self-pay [id number] 1946 Unknown [id number] 2.16.840.1.541557.3.579. 2.593 1946 Unknown [id number] 2.16.840.1.158223.3.579. 2.593 1946 Unknown [id number] 2.16.840.1.310626.3.579. 2.593 1946 Unknown [id number] 2.16.840.1.979648.3.579. 2.593 1946 Unknown [id number] 2.16.840.1.372283.3.579. 2.593 1946 Unknown [id number] 2.16.840.1.876710.3.579. 2.593 1946 Unknown [id number] 2.16.840.1.338561.3.579. 2.593 1946 Unknown [id number] 2.16.840.1.712932.3.579. 2.593 1946 Unknown [id number] 2.16.840.1.101694.3.579. 2.593 1946 Unknown [id number] 2.16.840.1.441285.3.579. 2.125 1946 Unknown [id number] 2.16.840.1.379397.3.579. 2.1259 1946 Unknown [id number] 2.16.840.1.860907.3.579. 2.1259 1946 Unknown [id number] 2.16.840.1.732846.3.579. 2.727 1946 Unknown [id number] 2.16.840.1.774383.3.579. 2.727 1946 Unknown [id number] 2.16.840.1.307652.3.579. 2.727 1946 Unknown [id number] 2.16.840.1.421977.3.579. 2.727 1946 Unknown [id number] 2.16.840.1.414698.3.579. 2.727 Unknown Unknown [id number] 2.16.840.1.422021.3.579. 2.531 Unknown [id number] 2.16.840.1.851194.3.579. 2.531 Unknown [id number] 2.16.840.1.190011.3.579. 2.531 Unknown [id number] 2.16.840.1.006224.3.579. 2.531 Unknown [id number] 2.16.840.1.291635.3.579. 2.531 Unknown [id number] 2.16.840.1.275228.3.579. 2.531 Unknown [id number] 2.16.840.1.675855.3.579. 2.531 Social History Date Type Detail Facility Start: 07-22-2024 End: 10-01-2024 Sex Assigned At [facility] Other Start: 08-04-2022 End: 10-25-2024 Tobacco smoking status Ex-smoker (finding) [facility] [place] Tobacco smoking status Never Gener [facility] Start: 1945 Sex Assigned At Female F [facility] History of tobacco use Current smoker [facility] History of tobacco use Cigarette Smoker [facility] Start: 07-03-2024 Tobacco use and exposure Smokeless tobacco non-user [facility] Start: 07-22-2024 End: 10-01-2024 Alcoholic beverage intake Lifetime non-drinker (finding) [facility] Start: 07-22-2024 End: 10-01-2024 History of Social function [facility] Start: 07-08-2024 Alcohol Comment caffeine: 1-2 cups per day [facility] Start: 1945 Sex assigned at Not on file [facility] Start: 12-26-2024 End: 04-21-2025 Sex Female (finding) [facility] Start: 03-12-2025 End: 06-10-2025 Tobacco smoking status NHIS Never smoked tobacco (finding) [facility] Medical Equipment Procedure Code Equipment Code Equipment Origin al Text Equipment Identifier Dates Blood Sugar Diagnostic (True Metrix Glucose Test Strip) strip Start: 03-31-2024 Pen Needle, Diab etic (Comfort Ez Pen [place]) 33 gauge x 5/32 needle Start: 03-25-2024 Blood Sugar Diagnostic (True Metrix Glucose Test Strip) strip Start: 03-31-2024 End: 03-31-2024 Blood Sugar Diagnostic (True Metrix Glucose Test Strip) strip Start: 03-31-2024 Pen Needle, Diab etic (Comfort Ez Pen [place]) 33 gauge x 5/32 needle Start: 03-25-2024 Blood Sugar Diagnostic (True Metrix Glucose Test Strip) strip Start: 03-31-2024 End: 03-31-2024 Blood Sugar Diagnostic (True Metrix Glucose Test Strip) strip Start: 03-31-2024 Pen Needle, Diab etic (Comfort Ez Pen [place]) 33 gauge x 5/32 needle Start: 03-25-2024 Blood Sugar Diagnostic (True Metrix Glucose Test Strip) strip Start: 03-31-2024 End: 03-31-2024 Blood Sugar Diagnostic (True Metrix Glucose Test Strip) strip Start: 03-31-2024 Pen Needle, Diab etic (Comfort Ez Pen [place]) 33 gauge x 5/32 needle Start: 03-25-2024 Blood Sugar Diagnostic (True Metrix Glucose Test Strip) strip Start: 03-31-2024 End: 03-31-2024 Blood Sugar Diagnostic (True Metrix Glucose Test Strip) strip Start: 03-31-2024 Pen Needle, Diab etic (Comfort Ez Pen [place]) 33 gauge x 5/32 needle Start: 03-25-2024 Blood Sugar Diagnostic (True Metrix Glucose Test Strip) strip Start: 03-31-2024 End: 03-31-2024 Blood Sugar Diagnostic (True Metrix Glucose Test Strip) strip Start: 03-31-2024 Pen Needle, Diab etic (Comfort Ez Pen [place]) 33 gauge x 5/32 needle Start: 03-25-2024 Blood Sugar Diagnostic (True Metrix Glucose Test Strip) strip Start: 03-31-2024 End: 03-31-2024 Blood Sugar Diagnostic (True Metrix Glucose Test Strip) strip Start: 03-31-2024 Pen Needle, Diab etic (Comfort Ez Pen [place]) 33 gauge x 5/32 needle Start: 03-25-2024 Blood Sugar Diagnostic (True Metrix Glucose Test Strip) strip Start: 03-31-2024 End: 03-31-2024 Blood Sugar Diagnostic (True Metrix Glucose Test Strip) strip Start: 03-31-2024 Pen Needle, Diab etic (Comfort Ez Pen [place]) 33 gauge x 5/32 needle Start: 03-25-2024 Blood Sugar Diagnostic (True Metrix Glucose Test Strip) strip Start: 03-31-2024 End: 03-31-2024 Blood Sugar Diagnostic (True Metrix Glucose Test Strip) strip Start: 03-31-2024 Pen Needle, Diab etic (Comfort Ez Pen [place]) 33 gauge x 5/32 needle Start: 03-25-2024 Blood Sugar Diagnostic (True Metrix Glucose Test Strip) strip Start: 03-31-2024 End: 03-31-2024 Pen Needle, Diab etic (Comfort Ez Pen [place]) 33 gauge x 5/32 needle Start: 03-25-2024 Blood Sugar Diagnostic (True Metrix Glucose Test Strip) strip Start: 03-31-2024 End: 10-16-2024 Blood Sugar Diagnostic (True Metrix Glucose Test Strip) strip Start: 03-31-2024 End: 03-31-2024 Pen Needle, Diab etic (Comfort Ez Pen [place]) 33 gauge x 5/32 needle Start: 03-25-2024 Blood Sugar Diagnostic (True Metrix Glucose Test Strip) strip Start: 03-31-2024 End: 10-16-2024 Blood Sugar Diagnostic (True Metrix Glucose Test Strip) strip Start: 03-31-2024 End: 03-31-2024 Pen Needle, Diab etic (Comfort Ez Pen [place]) 33 gauge x 5/32 needle Start: 03-25-2024 Blood Sugar Diagnostic (True Metrix Glucose Test Strip) strip Start: 03-31-2024 End: 10-16-2024 Blood Sugar Diagnostic (True Metrix Glucose Test Strip) strip Start: 03-31-2024 End: 03-31-2024 Pen Needle, Diab etic (Comfort Ez Pen [place]) 33 gauge x 5/32 needle Start: 03-25-2024 Blood Sugar Diagnostic (True Metrix Glucose Test Strip) strip Start: 03-31-2024 End: 10-16-2024 Blood Sugar Diagnostic (True Metrix Glucose Test Strip) strip Start: 03-31-2024 End: 03-31-2024 Pen Needle, Diab etic (Comfort Ez Pen [place]) 33 gauge x 5/32 needle Start: 03-25-2024 Blood Sugar Diagnostic (True Metrix Glucose Test Strip) strip Start: 03-31-2024 End: 10-16-2024 Blood Sugar Diagnostic (True Metrix Glucose Test Strip) strip Start: 03-31-2024 End: 03-31-2024 Pen Needle, Diab etic (Comfort Ez Pen [place]) 33 gauge x 5/32 needle Start: 03-25-2024 Blood Sugar Diagnostic (True Metrix Glucose Test Strip) strip Start: 03-31-2024 End: 10-16-2024 Blood Sugar Diagnostic (True Metrix Glucose Test Strip) strip Start: 03-31-2024 End: 03-31-2024 Pen Needle, Diab etic (Comfort Ez Pen [place]) 33 gauge x 5/32 needle Start: 03-25-2024 Blood Sugar Diagnostic (True Metrix Glucose Test Strip) strip Start: 03-31-2024 End: 10-16-2024 Blood Sugar Diagnostic (True Metrix Glucose Test Strip) strip Start: 03-31-2024 End: 03-31-2024 Pen Needle, Diab etic (Comfort Ez Pen [place]) 33 gauge x 5/32 needle Start: 03-25-2024 Blood Sugar Diagnostic (True Metrix Glucose Test Strip) strip Start: 03-31-2024 End: 10-16-2024 Blood Sugar Diagnostic (True Metrix Glucose Test Strip) strip Start: 03-31-2024 End: 03-31-2024 Goals Date Patient Goal Desired Activity /State Functional Status Date Assessment Result Facility 11-04-2024 Functional Status N/A [facility] 10-20-2024 Functional status Patient at [facility] Work Phone: 08-04-2022 Functional Status N/A [facility] [place] Mental Status Date Assessment Result Facility 10-20-2024 Cognitive function Cognitive Sta tus Patient at Baseline [facility] Work Phone: Clinical Notes 08-25-2021 to 04-22-2025 Note Date & Type Note Facility 04-22-2025 Note [facility] - [facility] Subjective Joe Call is a 79 y.o. year old female patient being seen for a follow up per Dr. Luna's request. Patient would like to discuss watchman. Patient Active Problem List Diagnosis Aortic valve disorder Benign essential hypertension Carotid artery stenosis Coronary atherosclerosis Diverticulitis of colon History of malignant neoplasm of breast Intestinal disaccharidase deficiency Lymphedema of left arm Morbid obesity ([facility]/HCC) Obstructive sleep apnea syndrome Paroxysmal supraventricular tachycardia Psoriasis Type 2 diabetes mellitus without complication ([facility]/HCC) Mixed hyperlipidemia Diastolic dysfunction Carotid bruit Chronic diarrhea Chronic low back pain Depressive disorder Diabetes mellitus (CMS/HCC) Diabetic neuropathy ([facility]/HCC) Exocrine pancreatic insufficiency Gastroesophageal reflux disease Hypertension Hypomagnesemia Hypothyroidism Stage 3 chronic kidney disease (CMS/HCC) Hyperlipidemia Atrial fibrillation (CMS/HCC) Paroxysmal atrial fibrillation (CMS/HCC) Abdominal swelling, generalized Anxiety Back pain with history of spinal surgery Cervical disc disease Chalazion of right eye Dyspnea Hordeolum externum (stye) Immunization due Lactose intolerance nursing home (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 insulin (CMS/HCC) Lumbar degenerative disc disease Lumbar spondylosis Lymph edema Macular degeneration Memory changes Osteoarthritis Secondary hyperparathyroidism Stress incontinence of urine Thrush of mouth and esophagus (CMS/HCC) Urinary incontinence UTI (urinary tract infection) Yeast cystitis CARMELO (acute kidney injury) Tremor Acquired hammer toe of right foot Ataxia Balance disorder CHF (congestive heart failure) (CMS/HCC) Dehydration Diabetic foot (CMS/HCC) Diabetic peripheral neuropathy associated with type 2 diabetes mellitus ([facility]/HCC) Disability of walking Essential tremor LPRD (laryngopharyngeal reflux disease) Mass of right axilla Paresthesia Throat tightness Type 2 diabetes mellitus with hyperglycemia, with long-term current use of insulin (CMS/HCC) Venous insufficiency (chronic) (peripheral) Debility Arthrodesis status BMI 40.0-44.9, adult (CMS/HCC) Epigastric pain Urine retention Family History Problem [...] prior cardiac catheterizations. She has history of ND in the past and underwent balloon angioplasty [...] arm. In the past she saw a chief supply chain officer for bleeding behind the eye . she [...] [facility] with increasing weakness and altered mental status. She also had acute renal insufficiency. She had UTI secondary to E. coli. She previously was admitted to the [facility] several times due to heart failure. She was readmitted in January 2025 to the [facility] with shortness of breath and treated with [...] Positive for shortness (more content not included)... [facility] 03-24-2025 Evaluation note Diagnosis Onset Date Resolution Diarrhea acute March 24, 2025 1:51pm Longstanding [...] bowel syndrome) acute April 21, 2025 2:10pm Fall against object acute May 21, 2025 10:52am GERD (gastroesophageal reflux disease) acute May 21, 2025 10:52am Dysuria acute June 02 12:10pm A-fib acute June 04 9:49am Confusion acute June 04 9:49am Fall against object acute June 04, 2025 9:49am Type 2 diabetes mellitus with hyperglycemia, with long-term current use of acute June 04, 2025 9:[address] [facility] Work Phone: 1(385) 883-674205-13-2025 Hospital Discharge instructionsAmbulatory Orders* Referral to Diabetes Management Time Frame: 03/24/25, Location: None Selected [facility] Work Phone: 1(171) 365-693904-29-2025 Evaluation note* Diagnosis Onset Date Resolution Status [...] bowel syndrome) acute April 21, 2025 2:10pm [facility] Work Phone: 1(109) 997-925904-29-2025 Evaluation note* Diagnosis Onset Date Resolution Status [...] bowel syndrome) acute April 21, 2025 2:10pm Fall against object acute May 21, 2025 10:52am GERD (gastroesophageal reflu x disease) acute May 21, 2025 10:52am [facility] Work Phone: 1(607) 513-366604-29-2025 Evaluation note* Diagnosis Onset Date Resolution Status [...] bowel syndrome) acute April 21, 2025 2:10pm Fall against object acute May 21, 2025 10:52am GERD (gastroesophageal reflu x disease) acute May 21, 2025 10:52am Dysuria acute June 02 12:10pm [facility] Work Phone: 1(960) 472-759104-21-2025 NoteCardiovascular Medicine [facility] SUBJECTIVE Patient is here today for follow-up after [facility] admission HPI 03/02/2025 Patient is here today [...] intake. 01/28/2025 She presented yesterday to the [place] emergency room with worsening shortness of breath [...] better. She is going to see a engineer and geologist next week. Also she reports symptoms of [...] postchemotherapy and radiation She was recently in [facility] 10/16/2024, she presented with fatigue, [...] her lisinopril due to (more content not included)...[facility]03-31-2025 Evaluation note* Diagnosis Onset Date Resolution Status [...] tract infection) acute March 24, 2025 1:51pm [facility] Work Phone: 1(484) 458-570903-31-2025 Evaluation note* Diagnosis Onset Date Resolution Status [...] bowel syndrome) acute April 21, 2025 2:10pm [facility] Work Phone: 1(756) 758-650803-19-2025 NoteCardiovascular Medicine [facility] SUBJECTIVE Patient is here today for follow-up after [facility] admission HPI 01/28/2025 She presented yesterday to the [place] emergency room with worsening shortness of breath [...] better. She is going to see a engineer and geologist next week. Also she reports symptoms of [...] postchemotherapy and radiation She was recently in [facility] 10/16/2024, she presented with fatigue, [...] confusion regarding her d (more content not included)...[facility]02-26-2025 Telephone encounter Note* Telephone Encounter - Christel Chacon MD - 01/07/2025 12:08 PM EST prn [facility] [id number] Miscellaneous Notes* Telephone Encounter - Christel Chacon MD - 01/07/2025 12:08 PM EST prn * Telephone Encounter - Jeanne Clayton - 01/07/2025 11:26 AM EST Called pt/spoke with spouse/he said she does not want to schedule with Dr Hurd/if she changes hermind she will call us back. documented in this encounterLakeland Regional [id number] Telephone encounter Note* Telephone Encounter - Jeannebrodie Chacon - 01/07/2025 11:26 AM EST Called pt/spoke with spouse/he said she does not want to schedule with Dr Hurd/if she changes hermind she will call us back. [facility] [id number] Evaluation note* Diagnosis Onset Date Resolution Status [...] of acute March 24, 2025 1 :51pm [facility] Work Phone: 1([phone]) 247-739702-25-2025 Telephone encounter Note* Telephone Encounter - Jeanne Chacon - 01/06/2025 11:21 AM EST Left a message for pt to call Dr Chacon's office back to see if pt is planning on scheduling with Dr Hurd for sleep study. [facility] [id number] Miscellaneous Notes* Telephone Encounter - Jeanne Chacon - 01/06/2025 11:21 AM EST Left a message for pt to call Dr Chacon's office back to see if pt is planning on scheduling with Dr Hurd for sleep study. documented in this encounterLakeland Regional [id number] Evaluation note* Diagnosis Onset Date Resolution Status [...] x disease) acute March 10, 2025 11:03am [facility] Work Phone: 1(203) 531-685502-14-2025 Evaluation note* Diagnosis Onset Date Resolution Status [...] 19, 2025 8:32am Hypokalemia acute February 19, 8:32am Secondary hyperparathyroidism acute February 19, 2025 8:32am Type 2 diabetes mellitus wit h diabetic chronic kidney disease acute February 19, 2025 8:32am Diarrhea acute March 10 11:03am Dyspepsia acute March 10 11:03am GERD (gastroesophageal reflu x disease) acute March 10, 2025 11:03am IBS (irritable bowel syndrome) acute March 10, 2025 11:[address] [facility] Work Phone: 1(269) 203-198201-28-2025 Evaluation note* Diagnosis Onset Date Resolution Status [...] kidney disease acute February 19, 2025 8:32am [facility] Work Phone: 1(450) 765-814501-21-2025 NoteCardiovascular Medicine [facility] SUBJECTIVE Patient is here today for follow-up. [...] postchemotherapy and radiation She was recently in [facility] 10/16/2024, she presented with fatigue, [...] few months. Patient here for follow up [facility]. Her diuretic was switched again back [...] Oz of fluid a day per the engineer and geologist. Her most recent discharge on 07/25/24 she [...] has noticed occasional horsen (more content not included)...[facility]12-31-2024 Evaluation note* Diagnosis Onset Date Resolution Status [...] (gastroesophageal reflu x disease) acute December 26, 2 025 12:52pm Lumbar degenerative disc disease acu [...] 2025 10:00am Diarrhea acute February 09 1:58pm [facility] Work Phone: 1([phone]) 129-203212-24-2024 Hospital Discharge instructions Patient Education 11/04/2024 11:01:25 [...] Follow these instructions at home: Medicines Take lhbi-eib-qrzepku and prescription medicines only as told by [...] provider. Document Revised: 07/20/2021 Document Reviewed: 07/20/2021 [employer] Patient Education 2023 [employer]. Follow Up Care 10/20/2024 13:37:01 With:FRANCHESCA PERAZA, URL Address: [address] [place] [address] Business (1) When:6 weeks [facility]24 NotePatient Education Obstetrics and Gynecology Acute [...] these instructions at home: Medicines ??? Take xrhw-wqy-otejtbl and prescription medicines only as told by [...] provider. Document Revised: 07/20/2021 Document Reviewed: 07/20/2021 [employer] Patient Education ? 2023 [employer] [facility] 11-[facility]-2024 Evaluation note* Diagnosis Onset Date Resolution [...] through stage 4 chronic ki acute November 11 024 1:26pm Secondary hyperparathyroidism acute November 11, [...] (gastroesophageal reflu x disease) acute December 26 2 025 12:52pm Lumbar degenerative disc disease acu [...] long-term current use of acute January 06 2 025 3:21pm [facility] Work Phone: 1(729) 928-712412-23-2024 Evaluation note* Diagnosis Onset Date Resolution Status [...] through stage 4 chronic ki acute November 11 2 024 1:26pm Secondary hyperparathyroidism acute November [...] diastolic C HF (congestive heart failure) acute 2025 3:21pm CKD (chronic kidney disease) , stage IV acute January 06 025 3:21pm GERD (gastroesophageal reflu x disease) acute January 06 3:21pm Lumbar degenerative disc disease acu te [...] use of acute January 14, 2025 10:00am [facility] Work Phone: 1(512) 822-289212-20-2024 NoteCardiovascular Medicine [place] [facility] SUBJECTIVE Patient is here today for hospital follow-up. She was in [facility] with bradycardia. HPI 10/31/2024 Joe Call is a 79 y.o. female here for follow-up. Patient has history of HFpEF, paroxysmal atrial fibrillation, hypertension, diabetes mellitus type 2, chronic kidney disease, remote history of breast cancer status postchemotherapy and radiation She was recently in [facility] 10/16/2024, she presented with fatigue, [...] few months. Patient here for follow up [facility]. Her diuretic was switched again back [...] Oz of fluid a day per the engineer and geologist. Her most recent discharge on 07/25/24 she [...] pain Depressive disorder Diabe (more content not included)...[facility] 10-16-2024 Evaluation note* Diagnosis Onset Date Resolution [...] kidney disease) , stage IV acute November 03 024 11:24am Lumbar spondylosis acute [facility] 2023 11:24am Type 2 diabetes mellitus wit h diabetic chronic kidney disease acute November 03, 2024 11:24am CKD (chronic kidney disease) stage 3, GFR 30-59 ml/min acute [facility] 2023 1:26pm Hyperlipidemia acute October 142023 [...] disease acu te December 09, 2024 1:24pm [facility] Work Phone: [phone] 265-506711-27-2024 NoteCardiovascular Medicine [place] [facility] SUBJECTIVE Chief Complaint Patient presents with Congestive Heart Failure Hypertension Atrial Fibrillation Joe Call is a 79 y.o. female here for follow-up. HPI PMHx: HFpEF, PAF, DMII, CKD III, HTN, hypothyroidism, mild carotid stenosis, breast CA s/p chemo/radiation +25years ago There is some confusion regarding her diuretic as there has been a lot of changes between ix and bumex in the past few months. Patient here for follow up [facility]. Her diuretic was switched again back [...] Oz of fluid a day per the engineer and geologist. Her most recent discharge on 07/25/24 she [...] deficiency Lymphedema of left arm Morbid obesity ([facility]/HCC) Obstructive sleep apnea syndrome Paroxysmal supraventricular tachycardia ([facility]/HCC) Psoriasis Type 2 diabetes mellitus without complication (CMS/HCC) Mixed hyperlipidemia Diastolic dysfunction Carotid bruit Chronic diarrhea Chronic low back pain Depressive disorder Diabetes mellitus (CMS/HCC) Diabetic neuropathy ([facility]/HCC) Exocrine pancreatic insufficiency Gastroesophageal reflux disease Hypertension Hypomagnesemia Hypothyroidism Stage 3 chronic kidney disease ([facility]/HCC) Hyperlipidemia Atrial fibrillation ([facility]/HCC) Paroxysmal atrial fibrillation ([facility]/HCC) Abdominal swelling, generalized Acute on chronic diastolic CHF (congestive heart failure) ([facility]) Anxiety Back pain with history of spinal surgery Cervical disc disease Chalazion of right eye Dyspnea Hordeolum externum (stye) Immunization due Lactose 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 ([facility]/HCC) Lumbar degenerative disc disease Lumbar spondylosis Lymph edema Macular degeneration Memory changes Osteoarthritis Secondary hyperparathyroidism ([facility]/HCC) Stress incontinence of urine Thrush of mouth and esophagus ([facility]/HCC) Urinary incontinence UTI (urinary tract infection) Yeast cystitis CARMELO (acute kidney injury) ([facility]/HCC) Tremor Acquired hammer toe of right foot Ataxia Balance disorder CHF (congestive heart failure) ([facility]/HCC) Dehydration Diabetic foot ([facility]/HCC) Diabetic peripheral neuropathy associated with type 2 diabetes mellitus ([facility]/HCC) Disability of walking Essential tremor LPRD (laryngopharyngeal reflux disease) Mass of right axilla Paresthesia Throat tightness Type 2 diabetes mellitus with hyperglycemia, with long-term current use of insulin ([facility]/HCC) Venous insufficiency (chronic) (peripheral) Debility Past Medical History: Diagnosis Date Atrial fibrillation (CMS/HCC) Cancer (CMS/HCC) Carotid artery stenosis Coronary (more content not included)...[facility] 10-08-2024 NotePatient here for 1 mo follow [...] tremors. All other systems reviewed and are negative.[facility] 10-01-2024 History of Present illness Narrative* Christel [...] on chronic diastolic CHF (congestive heart failure) ([facility]) 05/20/2024 CARMELO (acute kidney injury) (CMS/[facility]) 05/20/2024 Anxiety 05/20/2024 Aortic valve disorder 08/20/2012 Back pain with history of spinal surgery 05/20/2024 Benign essential hypertension (CMS/[facility]) 04/02/2012 Carotid artery stenosis 07/20/2022 Carotid bruit 01/16/2023 Cervical disc disease 05/20/2024 Chalazion of right eye 05/20/2024 Chronic diarrhea 01/16/2023 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 Chronic low back pain 01/16/2023 Coronary atherosclerosis (CMS/HCC) 03/20/2012 Depressive disorder (CMS/[facility]) 01/16/2023 Diabetes mellitus (CMS/HCC) 07/03/2024 Diabetic foot (CMS/[facility]) 07/03/2024 Diabetic neuropathy (CMS/[facility]) 01/16/2023 Diabetic peripheral neuropathy associated with type 2 diabetes mellitus (CMS/[facility]) 07/03/2024 Diastolic dysfunction 09/05/2022 Disability of walking 07/03/2024 Diverticulitis of colon 03/20/2012 Dyspnea 05/20/2024 Exocrine pancreatic insufficiency ([facility]/HCC) 01/16/2023 Gastroesophageal reflux disease 01/16/2023 History of malignant neoplasm of breast 03/20/2012 Hordeolum externum (stye) 05/20/2024 Hyperlipidemia ([facility]) 07/03/2024 Hypertension ([facility]) 01/16/2023 Near syncope 07/03/2024 Hypomagnesemia 01/16/2023 Hypothyroidism ([facility]) 01/16/2023 Lumbar degenerative disc disease 05/20/2024 Lumbar spondylosis 05/20/2024 Lymph edema 05/20/2024 Lymphedema of left arm 03/20/2012 Macular degeneration 05/20/2024 Memory changes 05/20/2024 Morbid obesity ([facility]) 07/20/2022 Obstructive sleep apnea syndrome 03/20/2012 Paroxysmal atrial fibrillation ([facility]) 03/20/2012 Paroxysmal supraventricular tachycardia ([facility]) 03/26/2012 Psoriasis ([facility]) 03/20/2012 Secondary hyperparathyroidism ([facility]) 05/20/2024 Stage 3 chronic kidney disease (HCC) ([facility]) 01/16/2023 Hypertensive chronic kidney disease with stage 1 through stage 4 chronic kidney disease, or unspecified chronic kidney disease ([facility]) 07/03/2024 Thrush of mouth and esophagus ([facility]) 05/20/2024 Tremor 06/18/2024 Type 2 diabetes mellitus with hyperglycemia, with long-term current use of insulin ([facility]) 07/03/2024 Venous insufficiency (chronic) (peripheral) 07/03/2024 Essential tremor 07/08/2024 Balance disorder 07/08/2024 Ataxia 07/08/2024 Diabetic peripheral neuropathy ([facility]) 07/08/2024 Paresthesia 07/08/2024 Sensory ataxia 07/10/2024 Debility 07/10/2024 Weakness 07/10/2024 Paresthesias 07/10/2024 JED (obstructive sleep apnea) 07/22/2024 LPRD (laryngopharyngeal reflux disease) 07/22/2024 Throat tightness 07/22/2024 Resolved Ambulatory Problems Diagnosis Date Noted Acute pain of left shoulder 07/03/2024 Lactose intolerance 05/20/2024 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 ([facility]) 05/20/2024 Pharyngitis 07/03/2024 CKD (chronic kidney disease), stage IV ([facility]) 07/03/2024 Stress incontinence of urine 05/20/2024 Urinary incontinence 05/20/2024 UTI (urinary tract infection) 05/20/2024 Yeast cystitis 05/20/2024 Past Medical History: Diagnosis Date Anemia Breast cancer ([facility]) Coronary heart disease ([facility]) Diverticulosis GERD (gastroesophageal reflux disease) ND (myocardial infarction) ([facility]) Myocardial infarction ([facility]) Type II diabetes mellitus ([facility]) Past Surgical History: Procedure Laterality Date APPENDECTOMY [...] I will call pt. documented in this encounterLakeland Regional [id number] Telephone encounter Note* Telephone Encounter - Jeanne Chacon - 09/30/2024 11:01 AM EST Pt is scheduled with Dr Chacon 10/01/2024. [facility] [id number] Miscellaneous Notes* Telephone Encounter - Jeanne Chacon - 09/30/2024 11:01 AM EST Pt is scheduled with Dr Chacon 10/01/2024. * Telephone Encounter - Jeanne Chacon - 09/26/2024 8:50 AM EST Tried to call pt to schedule a follow up appt for labs, unable to leave a message. documented in this encounterLakeland Regional [id number] Telephone encounter Note* Telephone Encounter - Jeanne Chacon - 09/26/2024 8:50 AM EST Tried to call pt to schedule a follow up appt for labs, unable to leave a message. [facility] [id number] NoteCardiovascular Medicine [facility] SUBJECTIVE Chief Complaint Patient presents with Congestive [...] few months. Patient here for follow up [facility]. Her diuretic was switched again back [...] Oz of fluid a day per the engineer and geologist. Her most recent discharge on 07/25/24 she [...] Hordeolum externum (stye) Immunization due Lactose intolerance nursing home (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 insulin ([facility]/HCC) Lumbar degenerative disc disease Lumbar spondylosis Lymph edema Macular degeneration Memory changes Osteoarthritis Secondary hyperparathyroidism (CMS/HCC) Stress incontinence of urine Thrush of mouth and esophagus (CMS/HCC) Urinary incontinence UTI (urinary tract infection) Yeast cystitis CARMELO (acute kidney injury) ([facility]/HCC) Tremor Acquired hammer toe of right foot Ataxia Balance disorder CHF (congestive heart failure) (CMS/HCC) Dehydration Diabetic foot ([facility]/HCC) Diabetic peripheral neuropathy associated with type 2 diabetes mellitus ([facility]) Disability of walking Essential tremor LPRD (laryngopharyngeal reflux disease) Mass of right axilla Paresthesia Throat tightness Type 2 diabetes mellitus with hyperglycemia, with long-term current use of insulin ([facility]) Venous insufficiency (chronic) (peripheral) Debility Past Medical History: Diagnosis Date Atrial fibrillation ([facility]/HCC) Cancer ([facility]) Carotid artery stenosis Coronary artery disease Diabetes mellitus ([facility]) GERD (gastroesophageal reflux disease) Hypertension Sleep apnea Family History Problem Relation Name Age of Onset Coronary artery disease Other Diabetes Other Polycystic kidney disease Other Social History Tobacco Use Smoking status: Former Types: Ci (more content not included)...[facility] 09-03-2024 NotePatient here for 2 week follow up. Had echo last week and labs drawn this afternoon. Says she's feeling better. Still denies chest pain, palpitations, and bleeding on Xarelto. Review of Systems Cardiovascular: Positive for leg swelling (feet). Respiratory: Positive for shortness of breath. Musculoskeletal: Positive for muscle weakness. Neurological: Positive for tremors. All other systems reviewed and are negative.[facility] 08-20-2024 NoteCardiovascular Medicine [facility] SUBJECTIVE Chief Complaint Patient presents with [...] few months. Patient here for follow up [facility]. Her diuretic was switched again back [...] Oz of fluid a day per the engineer and geologist. 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 ([facility]/HCC) Lumbar degenerative disc disease Lumbar spondylosis Lymph edema Macular degeneration Memory changes Osteoarthritis Secondary hyperparathyroidism ([facility]/HCC) Stress incontinence of urine Thrush of mouth and esophagus ([facility]/HCC) Urinary incontinence UTI (urinary tract infection) Yeast cystitis CARMELO (acute kidney injury) ([facility]/HCC) Tremor Acquired hammer toe of right foot Ataxia Balance disorder CHF (congestive heart failure) ([facility]) Dehydration Diabetic foot ([facility]) Diabetic peripheral neuropathy associated with type 2 diabetes mellitus ([facility]) Disability of walking Essential tremor LPRD (laryngopharyngeal reflux disease) Mass of right axilla Paresthesia Throat tightness Type 2 diabetes mellitus with hyperglycemia, with long-term current use of insulin ([facility]) Venous insufficiency (chronic) (peripheral) Debility Past Medical History: Diagnosis Date Atrial fibrillation ([facility]/HCC) Cancer ([facility]) Carotid artery stenosis Coronary artery disease Diabetes mellitus ([facility]) GERD (gastroesophageal reflux disease) Hypertension Sleep [...] All other systems reviewed (more content not included)...[facility]10-09-2024 NotePatient here for follow up [facility]. Her diuretic was switched again back [...] tremors. All other systems reviewed and are negative.[facility] 07-22-2024 History of Present illness Narrative* Christel [...] on chronic diastolic CHF (congestive heart failure) ([facility]) 05/20/2024 CARMELO (acute kidney injury) ([facility]) 05/20/2024 Anxiety 05/20/2024 Aortic valve disorder 08/20/2012 Back pain with history of spinal surgery 05/20/2024 Benign essential hypertension ([facility]) 04/02/2012 Carotid artery stenosis 07/20/2022 Carotid bruit 01/16/2023 Cervical disc disease 05/20/2024 Chalazion of right eye 05/20/2024 Chronic diarrhea 01/16/2023 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 Chronic low back pain 01/16/2023 Coronary atherosclerosis ([facility]) 03/20/2012 Depressive disorder ([facility]) 01/16/2023 Diabetes mellitus ([facility]) 07/03/2024 Diabetic foot ([facility]) 07/03/2024 Diabetic neuropathy ([facility]) 01/16/2023 Diabetic peripheral neuropathy associated with type 2 diabetes mellitus ([facility]) 07/03/2024 Diastolic dysfunction 09/05/2022 Disability of walking 07/03/2024 Diverticulitis of colon 03/20/2012 Dyspnea 05/20/2024 Exocrine pancreatic insufficiency ([facility]/HCC) 01/16/2023 Gastroesophageal reflux disease 01/16/2023 History of malignant neoplasm of breast 03/20/2012 Hordeolum externum (stye) 05/20/2024 Hyperlipidemia ([facility]) 07/03/2024 Hypertension ([facility]) 01/16/2023 Near syncope 07/03/2024 Hypomagnesemia 01/16/2023 Hypothyroidism ([facility]) 01/16/2023 Lumbar degenerative disc disease 05/20/2024 Lumbar spondylosis 05/20/2024 Lymph edema 05/20/2024 Lymphedema of left arm 03/20/2012 Macular degeneration 05/20/2024 Memory changes 05/20/2024 Morbid obesity ([facility]) 07/20/2022 Obstructive sleep apnea syndrome 03/20/2012 Paroxysmal atrial fibrillation ([facility]) 03/20/2012 Paroxysmal supraventricular tachycardia ([facility]) 03/26/2012 Psoriasis ([facility]) 03/20/2012 Secondary hyperparathyroidism ([facility]) 05/20/2024 Stage 3 chronic kidney disease (HCC) ([facility]) 01/16/2023 Hypertensive chronic kidney disease with stage 1 through stage 4 chronic kidney disease, or unspecified chronic kidney disease ([facility]) 07/03/2024 Thrush of mouth and esophagus ([facility]) 05/20/2024 Tremor 06/18/2024 Type 2 diabetes mellitus with hyperglycemia, with long-term current use of insulin ([facility]) 07/03/2024 Venous insufficiency (chronic) (peripheral) 07/03/2024 Essential tremor 07/08/2024 Balance disorder 07/08/2024 Ataxia 07/08/2024 Diabetic peripheral neuropathy ([facility]/HCC) 07/08/2024 Paresthesia 07/08/2024 Sensory ataxia 07/10/2024 Debility 07/10/2024 Weakness 07/10/2024 Paresthesias 07/10/2024 Resolved Ambulatory Problems Diagnosis Date Noted Acute pain of left shoulder 07/03/2024 Lactose intolerance 05/20/2024 nursing home (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 insulin ([facility] 05/20/2024 Pharyngitis 07/03/2024 CKD (chronic kidney disease), stage IV ([facility]) 07/03/2024 Stress incontinence of urine 05/20/2024 Urinary incontinence 05/20/2024 UTI (urinary tract infection) 05/20/2024 Yeast cystitis 05/20/2024 Past Medical History: Diagnosis Date Anemia Breast cancer ([facility]) Coronary heart disease ([facility]) Diverticulosis GERD (gastroesophageal reflux disease) ND (myocardial infarction) ([facility]) Myocardial infarction ([facility]) Type II diabetes mellitus ([facility]) Past Surgical History: Procedure Laterality Date [...] contribute to throat fullness documented in this encounterLakeland Regional [id number] History of Present illness Narrative* Lizett Jacinto NP - 07/10/2024 1:40 PM EDT Images from the original note were not included. No chief complaint on file. Subjective Joe Call, 78 y.o., female Patient is here today for follow-up of tremors and neuropathy. I am following the plan of care established by who is present in the office today and supervising patient care. HPI Joe presents today as HOSP F/U after being seen IP at [facility] for worsening SOB along with lower extremity edema and lower abdominal wall edema after being taken off of Lasix. 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 States that she was dx with CHF [...] of left shoulder 07/03/2024 Anemia Breast cancer ([facility]) CKD (chronic kidney disease), stage IV ([facility]) 07/03/2024 Coronary heart disease ([facility]) Diverticulosis GERD (gastroesophageal reflux disease) Lactose intolerance 05/20/2024 nursing home (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 insulin ([facility]) 05/20/2024 ND (myocardial infarction) ([facility]) Myocardial infarction ([facility]) Pharyngitis 07/03/2024 Type II diabetes mellitus ([facility]) Urinary incontinence 05/20/2024 Yeast cystitis 05/20/2024 [...] we have not seen her in [facility]. She never followed up. Dr. [...] would need to be done through the electrotype servicer. The patient does have benzodiazepines which are [...] modifying techniques such as weighted silverware, utensil facing cutting machine operator and/or cups with lids on them. [...] and the medication options Weighted silverware Utensil facing cutting machine operator to aid with writing and putting [...] to clinic: 2 months documented in this encounterLakeland Regional [id number] NoteUT Cardiology - [facility] Subjective Joe Call is a 78 y.o. year old female patient being seen for 1 mo follow up acute on chronic diastolic heart failure, CAD, and CARMELO. She's presented to [facility] ED several times over the [...] Hordeolum externum (stye) Immunization due Lactose intolerance nursing home (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 insulin (CMS/HCC) Lumbar degenerative [...] prior cardiac catheterizations. She has history of ND in the past and underwent balloon angioplasty [...] arm. In the past she saw a chief supply chain officer for bleeding behind the eye . she [...] [facility] with increasing weakness and altered mental status. She also had acute renal insufficiency. She had UTI secondary to E. coli. She was admitted again to the [facility] on 06/09/2020 for with acute on [...] Appearance: She is well-develo (more content not included)...[facility]04-05-2024 Hospital Discharge instructionsAmbulatory Orders * Referral to Urology Time Frame: 02/15/24, Location: None [facility] Work Phone: [phone] Evaluation note* Encounter Date Diagnosis Assessment Notes Treatment Notes Treatment Clinical Notes Nov, Lumbar degenerative disc disease (ICD-10 - M51.36) [employer] Other 12-12-2023 Evaluation note* Encounter Date Diagnosis [...] will check vitamin B12 level next visit [employer] Other 12-11-2023 Evaluation note* Encounter Date Diagnosis Assessment Notes Treatment Notes Treatment Clinical Notes Oct, Lumbar degenerative disc disease (ICD-10 - M51.36) [employer] Other 12-07-2023 Evaluation note* Encounter Date Diagnosis Assessment Notes Treatment Notes Treatment Clinical Notes Oct, Bronchitis (ICD-10 - J40) Finish meds. No acute need for antibiotic at this time Oct, Diabetes mellitus with chronic kidney disease (ICD-10 - E11.22) Due for labs, followup w Dr. Mcconnell Oct, Lumbar degenerative disc disease (ICD-10 - M51.36) Pt will contact neurosurgery. [employer] Other 10-27-2023 Evaluation note* Encounter Date Diagnosis Assessment Notes Treatment Notes Treatment Clinical Notes Aug, Chronic kidney disease, stage 4 (severe) (ICD-10 - N18.4) [employer] Other 10-24-2023 Evaluation note* Encounter Date Diagnosis [...] (ICD-10 - M51.36) Pt requests referral to [facility]. Reviewed OARRS report. Aug, Stress incontinence of urine (ICD-10 - N39.3) R/o infection. Discussed could be related to her diabetes med as well. [employer] Other 10-12-2023 Evaluation note* Encounter Date Diagnosis Assessment Notes Treatment Notes Treatment Clinical Notes Aug, Lumbar degenerative disc disease (ICD-10 - M51.36) [employer] Other 09-11-2023 Evaluation note* Encounter Date Diagnosis Assessment Notes Treatment Notes Treatment Clinical Notes Jul, Lumbar degenerative disc disease (ICD-10 - M51.36) [employer] Other 09-05-2023 Evaluation note* Encounter Date Diagnosis [...] refill. Oarrs reviewed. No med changes needed. [employer] Other 07-05-2023 Evaluation note* Encounter Date Diagnosis Assessment Notes Treatment Notes Treatment Clinical Notes May, C. difficile colitis (ICD-10 - A04.72) [employer] Other 06-19-2023 Evaluation note* Encounter Date Diagnosis Assessment Notes Treatment Notes Treatment Clinical Notes Apr, Skin candidiasis (ICD-10 - B37.2) Discussed this is related to her hyperglycemia. Will treat w nystatin, but needs improvement in diet and glucose readings. Apr, Type 2 diabetes mellitus with hyperglycemia, unspecified whether long-term insulin use (ICD-10 - E11.65) Pt agrees to see Dr Mcconnell again. Recently sent to ER for glucose of 608. Apr, Tremor of both hands (ICD-10 - R25.1) Referral to Dr. Lopez Apr, Memory changes (ICD- 10 - R41.3) Referral to Dr. Lopez Apr, Gastroesophageal reflux disease without esophagitis (ICD-10 - K21.9) Improved on carafate w PPI. [employer] Other 06-01-2023 Evaluation note* Encounter Date Diagnosis Assessment Notes Treatment Notes Treatment Clinical Notes Apr, Gastroesophageal ref lux disease without esophagitis (ICD-10 - K21.9) [employer] Other 04-28-2023 Evaluation note* Encounter Date Diagnosis [...] get lab ordered on 02/20 today Feb, nursing home (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 insulin (ICD-10 - Z79.4) [employer] Other 04-26-2023 Evaluation note* Encounter Date Diagnosis Assessment Notes Treatment Notes Treatment Clinical Notes Feb, C. difficile colitis (ICD-10 - A04.72) [employer] Other 04-17-2023 Evaluation note* Encounter Date Diagnosis Assessment Notes Treatment Notes Treatment Clinical Notes Feb, Gastroesophageal ref lux disease without esophagitis (ICD-10 - K21.9) [employer] Other 04-14-2023 Evaluation note* Encounter Date Diagnosis Assessment Notes Treatment Notes Treatment Clinical Notes Feb, Chronic diarrhea (ICD-10 - K52.9) [employer] Other 04-11-2023 Evaluation note* Encounter Date Diagnosis [...] it really overall has not been helpful. [employer] Other 01-13-2023 Evaluation note* Encounter Date Diagnosis Assessment Notes Treatment Notes Treatment Clinical Notes Nov, Type 2 diabetes mellitus with hyperglycemia, unspecified whether long-term insulin use (ICD-10 - E11.65) [employer] Other 10-14-2021 Evaluation note* Encounter Date Diagnosis [...] osteoarthritis of left knee (ICD-10 - M17.12) 14 Aug, 2021 Severe obesity (BMI >= 40) (ICD-10 - [...] training 6. Follow up in 3 months. [employer] Other Evaluation + Plan note No data available for this section General Surgery [place] Evaluation + Plan note Future Appointments Appointment Date:11/06/2024 11:00:00 AM Scheduled Provider: Location:[facility] Appointment Type:URO Nurse Visit Appointment Date:12/08/2024 11:40:00 AM Scheduled Provider:FRANCHESCA PERAZA PA-C Location:[facility] Appointment Type:URO Office Visit Diagnostic Tests Pending * Renal Function Panel 11/04/24 [facility] evaluation + Plan note Future Appointments Appointment Date:12/08/2024 11:40:00 AM Scheduled Provider:FRANCHESCA PERAZA PA-C Location:[facility] Appointment Type:URO Office Visit Appointment Date:12/18/2024 11:20:00 AM Scheduled Provider:FRANCHESCA PERAZA PA-C Location:[facility] Appointment Type:URO Complex Office Visit [facility] evaluation + Plan note Future Appointments Appointment Date:12/18/2024 11:20:00 AM Scheduled Provider:FRANCHESCA PERAZA PA-C Location:[facility] Appointment Type:URO Complex Office Visit [facility] evaluation noteNo InformationNortCyterix Pharm[employer] Other Evaluation noteNoP[employer] Other Evaluation noteNortCyterix Pharmaceuticals Other Evaluation note* Diagnosis Onset Date Resolution Status Chalazion of right eye acute Immunization due acute Urinary incontinence acute [facility] Work Phone: evaluation note* Diagnosis Onset Date Resolution Status Chalazion of right eye acute Immunization due acute Urinary incontinence acute Diabetes mellitus with hyperglycemia acute Hypertension acute Hypothyroidism acute Lumbar spondylosis acute Secondary hyperparathyroidism acute [facility] Work Phone: evaluation note* Diagnosis Onset [...] acute Thrush of mouth and esophagus acute [facility] Work Phone: evaluation note* Diagnosis Onset [...] IV acute UTI (urinary tract infection) acute [facility] Work Phone: evaluation note* Diagnosis Onset [...] acute Thrush of mouth and esophagus acute [id number] acute Secondary hyperparathyroidism acute [facility] Work Phone: Evaluation note* Diagnosis Onset [...] acute Thrush of mouth and esophagus acute [id number] acute CKD (chronic kidney disease) stage 3, GFR 30-59 ml/min acute Hyperlipidemia acute [id number] acute Secondary hyperparathyroidism acute Type 2 diabetes mellitus wit h diabetic chronic kidney disease acute Tremor acute [facility] Work Phone: Evaluation note* Diagnosis Onset [...] acute Thrush of mouth and esophagus acute [id number] acute CKD (chronic kidney disease) stage 3, GFR 30-59 ml/min acute Hyperlipidemia acute [id number] acute Secondary hyperparathyroidism acute Type 2 diabetes mellitus wit h diabetic chronic kidney disease acute Acute on chronic diastolic C HF (congestive heart failure) acute [id number] acute Tremor acute [id number] acute [facility] Work Phone: Evaluation note* Diagnosis Onset [...] acute Thrush of mouth and esophagus acute [id number] acute CKD (chronic kidney disease) stage 3, GFR 30-59 ml/min acute Hyperlipidemia acute [id number] acute Secondary hyperparathyroidism acute Type 2 diabetes mellitus wit h diabetic chronic kidney disease acute Acute on chronic diastolic C HF (congestive heart failure) acute [id number] acute Tremor acute [id number] acute Mass of right axilla acute [facility] Work Phone: Evaluation note* Diagnosis Onset [...] acute Thrush of mouth and esophagus acute [id number] acute CKD (chronic kidney disease) stage 3, GFR 30-59 ml/min acute Hyperlipidemia acute [id number] acute Secondary hyperparathyroidism acute Type 2 diabetes mellitus wit h diabetic chronic kidney disease acute Acute on chronic diastolic C HF (congestive heart failure) acute [id number] acute Tremor acute [id number] acute Mass of right axilla acute CHF (congestive heart failure) acute Dehydration acute [id number] acute [id number] acute [facility] Work Phone: Evaluation note* Diagnosis Onset [...] acute Thrush of mouth and esophagus acute [id number] acute CKD (chronic kidney disease) stage 3, GFR 30-59 ml/min acute Hyperlipidemia acute [id number] acute Secondary hyperparathyroidism acute Type 2 diabetes mellitus wit h diabetic chronic kidney disease acute Acute on chronic diastolic C HF (congestive heart failure) acute [id number] acute Tremor acute [id number] acute Back pain with history of spinal surgery acute Cervical disc disease acute CKD (chronic kidney disease), stage IV acute Mass of right axilla acute CHF (congestive heart failure) acute Dehydration acute [id number] acute [id number] acute Dysuria acute [facility] Work Phone: Evaluation note* Diagnosis Onset Date Resolution Status Lumbar degenerative disc disease acute Thrush of mouth and esophagus acute [id number] acute CKD (chronic kidney disease) stage 3, GFR 30-59 ml/min acute Hyperlipidemia acute [id number] acute Secondary hyperparathyroidism acute Type 2 diabetes mellitus wit h diabetic chronic kidney disease acute Acute on chronic diastolic C HF (congestive heart failure) acute [id number] acute Tremor acute [id number] acute Back pain with history of spinal surgery acute Cervical disc disease acute CKD (chronic kidney disease), stage IV acute Mass of right axilla acute CHF (congestive heart failure) acute Dehydration acute [id number] acute [id number] acute Dysuria acute [facility] Work Phone: Evaluation note* Diagnosis JED (obstructive sleep apnea)- Primary Obstructive sleep apnea (adult) (pediatric) Hypothyroidism (acquired) ([facility]) Unspecified hypothyroidism documented in this encounter [facility]* Diagnosis Essential tremor- Primary Diabetic polyneuropathy associated with type 2 diabetes mellitus ([facility]) Balance disorder Sensory ataxia Lack of coordination Debility Unspecified debility Weakness Other malaise and fatigue Paresthesias Disturbance of skin sensation documented in this encounter [facility]* Diagnosis JED (obstructive sleep apnea)- Primary Obstructive sleep apnea (adult) (pediatric) LPRD (laryngopharyngeal reflux disease) Acute laryngitis, without mention of obstruction Throat tightness documented in this encounter [facility] HealthcareHistory general Narrative - Reported* Type Description [...] History COLONOSCOPY 04/10/2019 Hospitalization History See above [employer] Other Hislawp general Narrative - Reported* Type Description Date [...] History COLONOSCOPY 04/10/2019 Hospitalization History See above [employer] Other History general Narrative - [employer]orted[employer] Other History general Narrative - [employer] Other History general Narrative - Reported* Type [...] GERD 2022 Hospitalization History DIABETES ISSUES 2022 [employer] Other Hospital Discharge instructions No data available for this section General Surgery [place] [facility] Discharge instructionsAmbulatory Orders* Referral to Neurology Time Frame: 06/16/24, Location: None [facility] Work Phone: Hospital Discharge instructionsAmbulatory Orders* Referral to ENT Time Frame: 06/25/24, Location: None [facility] Work Phone: Hospital Discharge instructions Additional Instructions Follow-up with your primary care doctor as you might need medication adjustments to manage your high blood sugar Return to ED if develop worsening [facility] or [facility] Work Phone: Progress note No data available for this section General Surgery [place] [facility] for referral (narrative)No reason for referral information [facility] Work [facility]: Revjse for visit Narrative* Consultation (Routine) - Closed Specialty Diagnoses / Procedures Referred By Renetta t Referred To Contact Neurology Diagnoses Tremor, unspecified Procedures [place] OFFICE/OUTPATIENT NEW LOW MDM 30 MINUTES Shantel Steven MD [address] [place] [address] Gio Choe MD [address] [place] [address] Referral ID Status Reason Start Date Expiration Date V isits Requested Visits Authorized [id number] Closed Consult and Treat 06/27/2024 12/24/2024 1 1 [facility] Summary Purpose Family History No Family [...] Date/ Time Advance Directives No July 10:28am Advance Directive Response Recorded Date/ Time Advance Directives No June 10 9:06am Reason for Referral Reason *Waiting for appt Labs last week. Sees endocrinology for diabetes. Renal function decreased. Diagnosis 1 Chronic kidney disea se, stage 4 (severe) (N18.4) Referral Organization [facility] helene Referring Provider First Name Shantel Referring Provider Last Name Tenisha Referring Provider Specialty [facility] [employer] Referred Organization [facility] Nephrology Referred Provider Cherie Rapp Referred Address [address] [place], [place],[address] Referred Provider Specialty Nephrology Referral Priority Routine General Notes Mariela Kingston 11:35:41 AM >received today, sent P2P Reason *FU 09/13 lumbar p ain Diagnosis 1 Lumbar degenerative disc disease (M51.36) Referral Organization [facility] helene Referring Provider First Name Shantel Referring Provider Last Name Tenisha Referring Provider Specialty [facility] Referred Organization [facility] Referred Provider Terell Soliz Referred Address [address] [place], [place],[address] Referred Provider Specialty [facility] Referral Priority Routine General Notes Mariela Kingston 03:09:25 PM >received today, waiting for notes to be locked Mariela Kingston 09/06/2023 10:08:29 AM >notes locked, referral faxed Clinical Notes F: [id number] Reason Poorly controlled di abetes Diagnosis 1 Type 2 diabetes maranda itus with hyperglycemia, unspecified whether long-term insulin use (E11.65) Referral Organization [facility] [employer] helene Referring Provider First Name Shantel Referring Provider Last Name Tenisha Referring Provider Specialty [facility] [employer] Referred Organization Unknown Facility Referred Provider Joshua Mcconnell Referred Provider Specialty Internal Med icine Referral Priority Routine Reason tremor and memory lo ss - family history of dementia Diagnosis 1 Tremor of both hands (R25.1) Referral Organization [facility] [employer] [facility]ene Referring Provider First Name Shantel Referring Provider Last Name Tenisha Referring Provider Specialty [facility] [employer] Referred Organization Unknown Facility Referred Provider Emery [...] disc disease Thrush of mouth and esophagus [id number] Secondary hyperparathyroidism Chief Complaint medication review Amb [...] disc disease Thrush of mouth and esophagus [id number] CKD (chronic kidney disease) stage 3, GFR 30-59 ml/min Hyperlipidemia [id number] Secondary hyperparathyroidism Type 2 diabetes mellitus with [...] disc disease Thrush of mouth and esophagus [id number] CKD (chronic kidney disease) stage 3, GFR 30-59 ml/min Hyperlipidemia [id number] 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 Acute on chronic diastolic CHF (congestive heart failure) [id number] Tremor [id number] Chief Complaint difficulty swallowin g Amb Documentation [...] disc disease Thrush of mouth and esophagus [id number] CKD (chronic kidney disease) stage 3, GFR 30-59 ml/min Hyperlipidemia [id number] 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 Acute on chronic diastolic CHF (congestive heart failure) [id number] Tremor [id number] Mass of right axilla Chief Complaint difficulty [...] disc disease Thrush of mouth and esophagus [id number] CKD (chronic kidney disease) stage 3, GFR 30-59 ml/min Hyperlipidemia [id number] 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 Acute on chronic diastolic CHF (congestive heart failure) [id number] Tremor [id number] Mass of right axilla Chief Complaint difficulty [...] disc disease Thrush of mouth and esophagus [id number] CKD (chronic kidney disease) stage 3, GFR 30-59 ml/min Hyperlipidemia [id number] 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 Acute on chronic diastolic CHF (congestive heart failure) [id number] Tremor [id number] Mass of right axilla CHF (congestive heart failure) Dehydration [id number] Chief Complaint difficulty swallowin g Amb Documentation [...] disc disease Thrush of mouth and esophagus [id number] CKD (chronic kidney disease) stage 3, GFR 30-59 ml/min Hyperlipidemia [id number] 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 Acute on chronic diastolic CHF (congestive heart failure) [id number] Tremor [id number] Back pain with history of spinal surgery Cervical disc disease CKD (chronic kidney disease), stage IV Mass of right axilla CHF (congestive heart failure) Dehydration [id number] Dysuria Chief Complaint throat problem SOB RENAL CKD 4 TBH follow up 3 month f/u Kidney injury, high BP R30.0 UA Amb Documentation TB f/u:Pulmonary Adema Reason for Visit Lumbar degenerative disc disease Thrush of mouth and esophagus [id number] CKD (chronic kidney disease) stage 3, GFR 30-59 ml/min Hyperlipidemia [id number] 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 Acute on chronic diastolic CHF (congestive heart failure) [id number] Tremor [id number] Back pain with history of spinal surgery Cervical disc disease CKD (chronic kidney disease), stage IV Mass of right axilla CHF (congestive heart failure) Dehydration [id number] Dysuria Chief Complaint Admit Date gen weakness [...] 025 12:52pm Gastroesophageal reflux disease (GERD) F [facility] 2024 3:21pm [facility] ER:Abd Pain/Chronic Pain January 14, 2025 [...] 2024 12:52pm GERD (gastroesophageal reflux disease) F [facility] 2024 12:52pm Lumbar degenerative disc disease uar y 2024 12:52pm Seborrhea capitis in adult December 12:52pm Type 2 diabetes mellitus wit h diabetic chronic kidney disease December 26, 2024 12:52pm Acute on chronic diastolic CHF (congesti ve heart failure) January 06, 2025 3:21pm CKD (chronic kidney disease), stage IV F [facility] 2024 3:21pm GERD (gastroesophageal reflux disease) F [facility] 2024 3:21pm Lumbar degenerative disc disease [id number] 3:21pm Type 2 diabetes mellitus wit h [...] CKD (chronic kidney disease), stage IV F [facility] 2024 3:21pm GERD (gastroesophageal reflux disease) F [facility] 2024 3:21pm Lumbar degenerative disc disease Februar y 2024 3:21pm Type 2 diabetes mellitus wit h hyperglycemia, with long-term current use of January 06, 2025 3:21pm Acute on chronic diastolic CHF (congesti ve heart failure) January 14, 2025 10:00am C. difficile diarrhea January 14, 2025 10 :00am GERD (gastroesophageal reflux disease) M [facility] 2024 10:00am Type 2 diabetes mellitus wit h hyperglycemia, with long-term current use of January 14, 2025 10:00am Chief Complaint Admit Date RENAL HOSP F/U November 11, 2024 1:26pm Amb Documentation December 08, 2024 2 :07pm 3 month f/u-HIGH RISK December 09, 2024 1:24pm Gerd/Diabetes-HIGH RISK December 26, 025 12:52pm Gastroesophageal reflux disease (GERD) F [facility] 2024 3:21pm [facility] ER:Abd Pain/Chronic Pain January [...] 2024 12:52pm [facility] 12:52[facility] Lumbar degenerative disc disease Februar y 2024 12:52pm Seborrhea capitis in adult December 12:52pm Type 2 diabetes mellitus wit h diabetic chronic kidney disease December 26, 2024 12:52pm Acute on chronic diastolic CHF (congesti ve heart failure) January 06, 2025 3:21pm CKD (chronic kidney disease), stage IV F [facility] 2024 3:21pm GERD (gastroesophageal reflux disease) F [facility] 2024 3:21pm Lumbar degenerative disc disease [id number] 3:21pm Type 2 diabetes mellitus wit h hyperglycemia, with long-term current use of January 06, 2025 3:21pm Acute on chronic diastolic CHF (congesti ve heart failure) January 14, 2025 10:00am C. difficile diarrhea January 14, 2025 10 :00am GERD (gastroesophageal reflux disease) M [facility] 2024 10:00am Type 2 diabetes mellitus wit h hyperglycemia, with long-term current use of January 14, 2025 10:00am Diarrhea February 09, 2025 1:5 8pm Chief Complaint Admit Date Amb Documentation December 08, 2024 2 :07pm 3 month f/u-HIGH RISK December 09, 2024 1:24pm Gerd/Diabetes-HIGH RISK December 26, 2 025 12:52pm Gastroesophageal reflux disease (GERD) F [facility] 2024 3:21pm [facility] ER:Abd Pain/Chronic Pain January [...] 2024 12:52pm GERD (gastroesophageal reflux disease) F [facility] 2024 12:52pm Lumbar degenerative disc disease Februar y 2024 12:52pm Seborrhea capitis in adult December 12:52pm Type 2 diabetes mellitus wit h diabetic chronic kidney disease December 26, 2024 12:52pm Acute on chronic diastolic CHF (congesti ve heart failure) January 06, 2025 3:21pm CKD (chronic kidney disease), stage IV F [facility] 2024 3:21pm GERD (gastroesophageal reflux disease) F [facility] 2024 3:21pm Lumbar degenerative disc disease Februar 2024 3:21pm Type 2 diabetes mellitus wit h hyperglycemia, with long-term current use of January 06, 2025 3:21pm Acute on chronic diastolic CHF (congesti ve heart failure) January 14, 2025 10:00am C. difficile diarrhea January 14, 2025 10 :00am GERD (gastroesophageal reflux disease) [facility] 2024 10:00am Type 2 diabetes mellitus wit h hyperglycemia, with long-term current use of January 14, 2025 10:00am Acute on chronic diastolic CHF (congesti ve heart failure) February 09, 2025 1:58pm CKD (chronic kidney disease), stage IV [facility] 2024 1:58pm Diarrhea February 09, 2025 1:5 8pm GERD (gastroesophageal reflux disease) [facility] 2024 1:58pm Lumbar degenerative disc disease January [...] 025 12:52pm Gastroesophageal reflux disease (GERD) F [facility] 2024 3:21pm [facility] ER:Abd Pain/Chronic Pain January [...] 2024 12:52pm Benign essential tremor December 26, 025 12:52pm Bloated abdomen December 26, 2024 12:52pm GERD (gastroesophageal reflux disease) F [facility] 2024 12:52pm Lumbar degenerative disc disease Februar y 2024 12:52pm Seborrhea capitis in adult December 12:52pm Type 2 diabetes mellitus wit h diabetic chronic kidney disease December 26, 2024 12:52pm Acute on chronic diastolic CHF (congesti ve heart failure) January 06, 2025 3:21pm CKD (chronic kidney disease), stage IV F [facility] 2024 3:21pm GERD (gastroesophageal reflux disease) F [facility] 2024 3:21pm Lumbar degenerative disc disease Februar 2024 3:21pm Type 2 diabetes mellitus wit h hyperglycemia, with long-term current use of January 06, 2025 3:21pm Acute on chronic diastolic CHF (congesti ve heart failure) January 14, 2025 10:00am C. difficile diarrhea January 14, 2025 10 :00am GERD (gastroesophageal reflux disease) [facility] 2024 10:00am Type 2 diabetes mellitus wit h hyperglycemia, with long-term current use of January 14, 2025 10:00am Acute on chronic diastolic CHF (congesti ve heart failure) February 09, 2025 1:58pm CKD (chronic kidney disease), stage IV M [facility] 2024 1:58pm Diarrhea February 09, 2025 1:5 8pm GERD (gastroesophageal reflux disease) M [facility] 2024 1:58pm Lumbar degenerative disc [...] Complaint Admit Date Gerd/Diabetes-HIGH RISK December 26, 025 12:52pm Gastroesophageal reflux disease (GERD) F [facility] 2024 3:21pm [facility] ER:Abd Pain/Chronic Pain January [...] 2024 12:52pm GERD (gastroesophageal reflux disease) F [facility] 2024 12:52pm Lumbar degenerative disc disease uar 2024 12:52pm Seborrhea capitis in adult December 12:52pm Type 2 diabetes mellitus wit h diabetic chronic kidney disease December 26, 2024 12:52pm Acute on chronic diastolic CHF (congesti ve heart failure) January 06, 2025 3:21pm CKD (chronic kidney disease), stage IV F [facility] 2024 3:21pm GERD (gastroesophageal reflux disease) F [facility] 2024 3:21pm Lumbar degenerative disc disease Februar [...] Admit Date Gastroesophageal reflux disease (GERD) F ebruary 2024 [...] 2024 3:21pm GERD (gastroesophageal reflux disease) F [facility] 2024 3:21pm Lumbar degenerative disc disease Februar y 2024 3:21pm Type 2 diabetes mellitus wit h hyperglycemia, with long-term current use of January 06, 2025 3:21pm Acute on chronic diastolic CHF (congesti ve heart failure) January 14, 2025 10:00am C. difficile diarrhea January 14, 2025 10 :00am GERD (gastroesophageal reflux disease) [facility] 2024 10:00am Type 2 diabetes mellitus wit h hyperglycemia, with long-term current use of January 14, 2025 10:00am Acute on chronic diastolic CHF (congesti ve heart failure) February 09, 2025 1:58pm CKD (chronic kidney disease), stage IV M [facility] 2024 1:58pm Diarrhea February 09, 2025 1:5 8pm GERD (gastroesophageal reflux disease) [facility] 2024 1:58pm Lumbar degenerative disc disease January [...] TBH; fall; discuss eczema May 21 10:52am UA, confusion, hallucination June 02, 2025 12:10pm Reason for Visit Admit Date Diarrhea March [...] 2:10pm IBS (irritable bowel syndrome) April 2:10pm Fall against object May 21, 2025 10:5 2am GERD (gastroesophageal reflux disease) J paul 2024 10:52am Reason for Visit Admit Date Diarrhea [...] 2:10pm IBS (irritable bowel syndrome) April 2:10pm Fall against object May 21, 2025 10:5 2am GERD (gastroesophageal reflux disease) J paul 2024 10:52am Dysuria June 02, 2025 12:1 0pm Chief Complaint Admit Date follow up egd March 10, 2025 11: 03am abnormal labs March 12, 2025 1:23pm Amb Documentation March 13, 2025 9:28am Concerns March 24, 2025 1:51p m HIGH RISK, rash April 16, 2025 10:19 am 6 week follow up April 21, 2025 2:10 pm Amb Documentation May 13, 2025 9:25a m TBH; fall; discuss eczema May 21 10:52am UA, confusion, hallucination June 02, 2025 12:10pm R30.0 June 02, 2025 12:3 0pm Afsaneh ER F/U June 04, 2025 9:49 am Chief Complaint Admit Date Concerns March 24, 2025 1:51p m HIGH RISK, rash April 16, 2025 10:19 am 6 week follow up April 21, 2025 2:10 pm Amb Documentation May 13, 2025 9:25a m TBH; fall; discuss eczema May 21 10:52am UA, confusion, hallucination June 02, 2025 12:10pm R30.0 June 02, 2025 12:3 0pm Afsaneh ER F/U June 04, 2025 9:49 am Amb Documentation June 10, 2025 9:18 am Reason for Visit Admit Date Diarrhea March 24, 2025 1:51p m Longstanding [...] 2:10pm IBS (irritable bowel syndrome) April 2:10pm Fall against object May 21, 2025 10:5 2am GERD (gastroesophageal reflux disease) J paul 2024 10:52am Dysuria June 02, 2025 12:1 0pm A-fib June 04, 2025 9:49 am Confusion June 04, 2025 9:49 am Fall against object June 04, 2025 9:49 am Type 2 diabetes mellitus wit h hyperglycemia, with long-term current use of June 04, 2025 9:49am Additional Source Comments INFORMATION SOURCE (unrecogn ized section and content) DATE CREATED AUTHOR 05/10/2018 [facility] DATE CREATED AUTHOR AUTHOR'S ORGANIZ ATION 03/10/2023 [facility] DATE CREATED AUTHOR AUTHOR'S ORGANIZ ATION 10/04/2024 [facility] EPIC DATE CREATED AUTHOR AUTHOR'S ORGANIZ ATION 12/21/2024 [facility] DATE CREATED AUTHOR AUTHOR'S ORGANIZ ATION 05/24/2025 [facility] DATE CREATED AUTHOR AUTHOR'S ORGANIZ ATION 06/26/2025 [facility] REASON FOR VISIT (unrecogniz ed [...] 12, 2025 End: March 12, 2025 Jorge Calxi DO Emergency Provider Active Sta rt: March [...] 2025 End: May 21, 2025 Team Status: Active Member Role Status Dates Shantel Steven MD Primary Care Provider Active Start: May 28, 2025 Analisa Bryant MD Attending Provider Active St art: May 28, 2025 Team Status: Active Member Role Status Dates Shantel Steven MD Primary Care Provider Active Start: May 29, 2025 Monica Stewart MD Attending Provider Active Sta rt: May 29, 2025 Team Status: Active Member Role Status Dates Monica Stewart MD Attending Provider Active Sta rt: May 30, 2025 Shantel Steven MD Primary Care Provider Active Start: May 30, 2025 Team Status: Active Member Role Status Dates Monica Stewart MD Attending Provider Active Sta rt: May 31, 2025 Shantel Steven MD Primary Care Provider Active Start: May 31, 2025 Team Status: Inactive Member Role Status Dates Shantel Steven MD Primary Care Provider Active Start: June 02, 2025 End: June 02, 2025 Shantel Steven MD Attending Provider Active St art: June 02, 2025 End: June 02, 2025 Team Status: Active Member Role Status [...] 2025 Martine Guerrero Attending Provider Active Start: [facility] 2024 Team Status: Active Member Role Status [...] Care Provider Active Start: September 29, 2024 Yamel Pandya NP-C Attending Provider Active Start: September 29, 2024 [...] Ange Vergara MD Other Provider Active Start: [id number] End: October 20, 2024 Renetta Trivedi MD Other Provider Active Start: October 16, 2024 End: October 20, 2024 Kavin sEcobar DO Attending Provider Active Start: October 16, [...] Lamine Smith MD Other Provider Active Start: D ecember 2023 Rica Brownlee MD Other Provider Active [...] Team Status: Active Member Role Status Dates Shatnel Steven MD Primary Care Provide r, Attending [...] End: January 18, 2024 Franchesca Sullivan APRN [employer] OPERATOR-C Attending Provider Act chiqui Start: January 18, [...] August 07, 2024 End: August 07, 2024 Visual Specialist Relationship Specialty Start Date End Date Shantel Steven MD [address] [facility] [place] [address] PCP - General Family Medicine 06/25/24 Visual Specialist Relationship Specialty Start Date End Date Shantel Steven MD [address] [facility] [place] [phone] PCP - General Family Medicine 06/25/24 Visual Specialist Relationship Specialty Start Date End Date Shantel Steven MD [address] [facility] [place] [phone] PCP - General Family Medicine 06/25/24 Visual Specialist Relationship Specialty Start Date End Date Shantel Steven MD [address] [facility] [place] [address] PCP - General Family Medicine 06/25/24 Visual Specialist Relationship Specialty Start Date End Date Shantel Steven MD [address] [facility] [place] [phone] PCP - General Family Medicine 06/25/24 Visual Specialist Relationship Specialty Start Date End Date Shantel Steven MD [address] [facility] [place] [id number] PCP - General Family Medicine 06/25/24 Visual Specialist Relationship Specialty Start Date End Date Shantel Steven MD [address] [place] [id number] PCP - General Family Medicine 06/25/24 Visual Specialist Relationship Specialty Start Date End Date Shantel Steven MD [address] [facility] [place] [id number] PCP - General Family Medicine 06/25/24 Team [...] MD Primary Care Provider Active Start: June 04, 2025 End: June 04, 2025 Shantel Steven MD Attending Provider Active St art: June 04, 2025 End: June 04, 2025 Team Status: Active Member Role Status Dates Shantel Steven MD Primary Care Provider Active Start: June 08, 2025 Jarred Galan DO Attending Provider Active S tart: June 08, 2025 Team Status: Active Member Role Status Dates Shantel Steven MD Primary Care Provider Active Start: June 09, 2025 Osbaldo Marlow MD Attending Provider Active Star t: June 09, 2025 Team Status: Active Member Role Status Dates Shantel Steven MD Primary Care Provider Active Start: June 10, 2025 Osbaldo Marlow MD Attending Provider Active Star t: June 10, 2025 Team Status: Active Member Role Status Dates Shantel Steven MD Primary Care Provider Active Start: June 10, 2025 Wandy Alvarez CMA Attending Provider Active Start: June 10, 2025 Team Status: Inactive Member Role Status Dates Shantel Steven MD Attending Provider Active St art: June 15, 2025 End: June 15, 2025 Goals (unrecognized section and content) Goals [...] BE BASED ON THE PRIMARY CLINICAL RECORDS. [employer] provides no warranty or guarantee of the accuracy or completeness of information in this document.
--- NOTE | 2025-06-28 13:25 | XR_ITS ---
The [address] [address] Patient Name: JOE CALL MRN: [id number] date: 1945 Sex: F Assigned Patient Location: ED.MAIN Current Patient Location: ED.MAIN Accession/Order Number: [id number] Exam Date: 06/28/2025 14:33 Report Date: 06/28/2025 14:33 At the request of: JANIE DURHAM MD Procedure: XR chest 1V Single view chest: CLINICAL HISTORY: dyspnea COMPARISON: Chest 06/19/2025 FINDINGS: Cardiomegaly with vascular congestion and large left-sided pleural effusion which appears to have progressed since the prior study. No free air. XR/XR chest 1V IMPRESSION: WORSENING CHF FINDINGS. Impression dictated by: Cosme Morales Jr., D.ODoreen 06/28/2025 2:33 PM Dictation Location: [place] [address] Electronically authenticated by: [id number] Y Date: 06/28/2025 14:33
--- NOTE | 2025-06-28 13:25 | ECG_ITS ---
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 Measurements Intervals Emerson Rate: 80 P: 67 WA: 164 QRS: 10 QRSD: 98 T: 77 QT: 374 QTc: 410 Interpretive Statements 1100 Sinus rhythm 3114 Cannot rule out anterior myocardial infarction, age undetermined 9150 abnormal ECG Compared to ECG 06/19/2025 05:09:40 No significant changes Electronically Signed On 06-29-2025 17:41:47 EDT by IRCA MEDRANO M.D.
[2025-06-28 13:57] LABS: Hematocrit 34.9 % (36.0-48.0); Hemoglobin 11.2 g/dL (12.0-16.0); Immature Granulocytes Abs Auto 0.01 10^3/uL (0.00-0.03); Immature Granulocytes Pct Auto 0.1 % (0.0-0.5); Lymphocytes Absolute Auto 0.9 10^3/uL (1.2-3.8); Mean Corpuscular HGB Conc 32.1 g/dL (29.9-35.2); Mean Corpuscular Hemoglobin 29.5 pg (26.7-34.0); Mean Corpuscular Volume 91.8 fL (81.0-99.0); Platelet Count 158 10^3/uL (150-450); Red Blood Count 3.80 10^6/uL (4.20-5.40); White Blood Count 7.5 10^3/uL (4.0-11.0)
[2025-06-28 14:09] LABS: Anion Gap 10.5
[2025-06-28 14:17] LABS: Alanine Aminotransferase 16 U/L (14-59); Albumin Globulin Ratio 0.4; Albumin Level 2.2 g/dL (3.4-5.0); Alkaline Phosphatase 104 U/L (46-116); Aspartate Amino Transferase 21 U/L (15-37); Blood Urea Nitrogen 31.0 mg/dL (7.0-18.0); Calcium 8.4 mg/dL (8.5-10.1); Carbon Dioxide 30.7 mmol/L (21.0-32.0); Chloride 106 mmol/L (98-107); Estimated GFR (African America 45 (>=60 mL/min/1.73m^2); Estimated GFR (Non-African Ame 37 (>=60 mL/min/1.73m^2); Globulin 5.1 g/dL; Glucose 117 mg/dL (74-106); Potassium 4.2 mmol/L (3.5-5.1); Sodium 143 mmol/L (136-145); Total Protein 7.3 g/dL (6.4-8.2)
--- NOTE | 2025-06-28 14:17 | ED.GENADUL1 ---
HPI HPI - General Adult General Chief complaint: Shortness of Breath/Dyspnea Stated complaint: SOB Time Seen by Provider: 06/28/25 13:49 Source: patient Mode of arrival: ambulance History of Present Illness HPI narrative: 79-year-old female presents for shortness of breath. She tells me it started last night and her states that her hands and feet have been more swollen. She has a history of CHF. She was last in the hospital about 2 weeks ago. No fever or productive cough and she does not complain of chest pain. Related Data Home Medications ?Medication ?Instructions ?Recorded ?Confirmed insulin glargine 100 unit/mL (3 30 unit subcut BEDTIME 04/25/23 06/19/25 mL) subcutaneous pen (Lantus Solostar U-100 Insulin) alprazolam 0.25 mg tablet 0.25 mg PO TID PRN anxiety 04/30/24 06/19/25 levothyroxine 125 mcg tablet 125 mcg PO .acb 04/30/24 06/19/25 insulin NPH isoph U-100 human 100 1 unit subcut AC 06/09/24 06/19/25 unit/mL (3 mL) subcutaneous pen (Novolin N FlexPen) cholecalciferol (vitamin D3) 125 125 mcg PO DAILY 06/18/24 06/19/25 mcg (5,000 unit) tablet (Vitamin D3) rivaroxaban 20 mg tablet (Xarelto) 20 mg PO DAILY 06/18/24 06/19/25 vit C 226 mg-vit E 90 mg-copper 1 cap PO BID 06/18/24 06/19/25 0.8 mg-zinc oxide-lutein 5 mg capsule (PreserVision Lutein) famotidine 20 mg tablet 20 mg PO .qhs 07/24/24 06/19/25 omeprazole 40 mg capsule,delayed 40 mg PO .acb 07/24/24 06/19/25 release buspirone 5 mg tablet 5 mg PO BID 01/25/25 06/19/25 duloxetine 20 mg capsule,delayed 20 mg PO DAILY 01/25/25 06/19/25 release furosemide 40 mg tablet 40 mg PO DAILY 05/28/25 06/19/25 propranolol 40 mg tablet 40 mg PO BID 06/19/25 06/19/25 Previous Rx's ?Medication ?Instructions ?Recorded diphenoxylate-atropine 2.5 1 tab PO Q6H PRN Diarrhea 7 days 01/27/25 mg-0.025 mg tablet (Lomotil) #28 tabs metoprolol tartrate 25 mg tablet 25 mg PO BID #60 tabs 05/31/25 amlodipine 5 mg tablet 5 mg PO QD 30 days #30 tabs 06/10/25 Allergies Allergy/AdvReac Type Severity Reaction Status Date / Time Iodinated Contrast Media Allergy Intermediate Hives Verified 06/28/25 12:56 shellfish derived Allergy Intermediate Hives Verified 06/28/25 12:56 Sulfa (Sulfonamide Allergy Unknown Rash Verified 06/28/25 12:56 Antibiotics) Opioid HPI Opioid Management Most Recent Opioid Data: Last Pain Scale 0 Today, 13:04 Last Pain Intensity 3 06/09/24, 13:07 Last ORT Total Score 1 06/19/25, 06:45 Last ORT Risk Category Low Risk 06/19/25, 06:45 Review of Systems ROS Narrative A ten point review of systems is negative except as noted above. [facility] Medical History (Updated 06/28/25 @ 14:58 by Elan Galan MD) Noncompliance ?Z91.199 - Patient's noncompliance with other medical treatment and regimen due to unspecified reason (ICD-10) Diastolic congestive heart failure ?I50.30 - Unspecified diastolic (congestive) heart failure (ICD-10) Obesity ?E66.9 - Obesity, unspecified (ICD-10) CHF (congestive heart failure) ?I50.9 - Heart failure, unspecified (ICD-10) GERD without esophagitis ?K21.9 - Gastro-esophageal reflux disease without esophagitis (ICD-10) Anxiety ?F41.9 - Anxiety disorder, unspecified (ICD-10) Intermittent palpitations ?R00.2 - Palpitations (ICD-10) Acute hyperglycemia ?R73.9 - Hyperglycemia, unspecified (ICD-10) Acute kidney injury ?N17.9 - Acute kidney failure, unspecified (ICD-10) Acute on chronic clinical systolic heart failure ?I50.23 - Acute on chronic systolic (congestive) heart failure (ICD-10) Acute renal failure ?N17.9 - Acute kidney failure, unspecified (ICD-10) Hyperkalemia ?E87.5 - Hyperkalemia (ICD-10) Acute dehydration ?E86.0 - Dehydration (ICD-10) Diabetes mellitus with hyperglycemia, with long-term current use of insulin ?E11.65 - Type 2 diabetes mellitus with hyperglycemia (ICD-10) ?Z79.4 - keno terminal operator (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 insulin (ICD-10) Paroxysmal atrial fibrillation ?I48.0 - Paroxysmal atrial fibrillation (ICD-10) Hypothyroidism (acquired) ?E03.9 - Hypothyroidism, unspecified (ICD-10) Hypertension ?I10 - Essential (primary) hypertension (ICD-10) Hypokalemia ?E87.6 - Hypokalemia (ICD-10) CHF (congestive heart failure) ?I50.9 - Heart failure, unspecified (ICD-10) Cataracts, bilateral ?H26.9 - Unspecified cataract (ICD-10) Breast cancer ?C50.919 - Malignant neoplasm of unspecified site of unspecified female breast (ICD-10) Surgical History History of cholecystectomy ?Z90.49 - Acquired absence of other specified parts of digestive tract (ICD-10) History of appendectomy ?Z90.49 - Acquired absence of other specified parts of digestive tract (ICD-10) History of hysterectomy ?Z90.710 - Acquired absence of both cervix and uterus (ICD-10) H/O lumbosacral spine surgery ?Z98.890 - Other specified postprocedural states (ICD-10) H/O bilateral mastectomy ?Z90.13 - Acquired absence of bilateral breasts and nipples (ICD-10) Family History Other Family history of CHF (congestive heart failure) Family history of cancer Family history of diabetes mellitus Family history of hypertension H/O mastectomy Social History Within the past year, how often did you have a drink containing alcohol: never Within the past year, how often did you have six or more drinks on one occasion: never Score interpretation: A score less than 3 is consistent with normal alcohol consumption. 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 Highest level of school completed/degree received: some college, no degree Do you want help with school or training: No Are you now , , , , never or living with a partner: In a typical week, how many times do you talk on the telephone with family, friends, or neighbors: twice per week How often do you get together with friends or relatives: twice per week How often do you attend samaritan or gnosticism services: never Do you belong to any clubs or organizations such as samaritan groups unions, fraternal or athletic groups, or school groups: no Total score: 2 Score interpretation: A score of greater than or equal to 2 indicates the lowest level of social isolation. Little interest or pleasure in doing things: not at all Feeling down, depressed, or hopeless: not at all Feel stressed/tense/nervous/anxious/difficulty sleeping: not at all Due to disability, difficulty making decisions: No Do you think of yourself as: straight/heterosexual Gender Identity: female Exam Narrative Exam Narrative: Nurses note and vital signs reviewed and patient is not hypoxic. General: The patient appears in no apparent distress. Skin: Warm, dry, no pallor noted. There is no rash noted. Head: Normocephalic, atraumatic Eye: Normal conjunctiva, no drainage Ears, Nose, Mouth, and Throat: oral mucosa is moist. Nares patent. Cardiovascular: Regular Rate and Rhythm Respiratory: Breath sounds are equal bilaterally. GI: Obese soft and nontender Musculoskeletal: She has bilateral foot and hand edema. Left arm has chronic lymphedema from mastectomy Neurological: Awake and alert Psychiatric: Cooperative Constitutional Vital Signs, click to edit/add: Last Vital Signs Temp 97.8 F 06/28/25 12:56 Pulse 80 06/28/25 12:56 Resp 20 06/28/25 12:56 BP 206/86 H 06/28/25 12:56 Pulse Ox 88 L 06/28/25 13:04 O2 Del Method Room Air 06/28/25 13:04 Course Vital Signs Vital signs: Vital Signs Temperature 97.8 F 06/28/25 12:56 Pulse Rate 80 06/28/25 12:56 Respiratory Rate 20 06/28/25 12:56 Blood Pressure 206/86 H 06/28/25 12:56 Pulse Oximetry 88 L 06/28/25 12:56 Oxygen Delivery Method Room Air 06/28/25 12:56 Temperature 97.8 F 06/28/25 12:56 Pulse Rate 80 06/28/25 12:56 Respiratory Rate 20 06/28/25 12:56 Blood Pressure 206/86 H 06/28/25 12:56 Pulse Oximetry 88 L 06/28/25 13:04 Oxygen Delivery Method Room Air 06/28/25 13:04 Medical Decision Making MDM Narrative Medical decision making narrative: Chest x-ray shows worsening CHF. She was given IV Lasix and is being admitted for observation. BNP is elevated but below what appears to be her baseline and the troponin is negative. Findings are discussed with the patient and her . Differential Diagnosis Differential Diagnosis: CHF, pneumonia, myocardial infarction Lab Data Lab results reviewed: Yes I reviewed the patient's lab results Labs: Lab Results 06/28/25 06/28/25 Range/Units 13:48 13:49 WBC 7.5 (4.0-11.0) 10^3/uL RBC 3.80 L (4.20-5.40) 10^6/uL Hgb 11.2 L (12.0-16.0) g/dL Hct 34.9 L (36.0-48.0) % MCV 91.8 (81.0-99.0) fL MCH 29.5 (26.7-34.0) pg MCHC 32.1 (29.9-35.2) g/dL RDW 15.9 H (11.0-15.0) % Plt Count 158 (150-450) 10^3/uL MPV 10.9 (9.5-13.5) fL Neut % (Auto) 75.6 H (43.0-75.0) % Lymph % (Auto) 12.6 L (20.5-60.0) % [place] % (Auto) 8.1 (1.7-12.0) % Eos % (Auto) 2.4 (0.9-7.0) % Baso % (Auto) 1.2 (0.2-2.0) % Neut # (Auto) 5.6 (1.4-6.5) 10^3/uL Lymph # (Auto) 0.9 L (1.2-3.8) 10^3/uL [place] # (Auto) 0.6 (0.3-0.8) 10^3/uL Eos # (Auto) 0.2 (0.0-0.7) 10^3/uL Baso # (Auto) 0.1 (0.0-0.1) 10^3/uL Abs Immat Gran (auto) 0.01 (0.00-0.03) 10^3/uL Imm/Tot Granulo (auto) 0.1 (0.0-0.5) % Sodium 143 (136-145) mmol/L Potassium 4.2 (3.5-5.1) mmol/L Chloride 106 (98-107) mmol/L Carbon Dioxide 30.7 (21.0-32.0) mmol/L Anion Gap 10.5 BUN 31.0 H (7.0-18.0) mg/dL Creatinine 1.37 H (0.55-1.02) mg/dL Est GFR ( Amer) 45 L (>=60 mL/min/1.73m^2) Est GFR (Non-Af Amer) 37 L (>=60 mL/min/1.73m^2) BUN/Creatinine Ratio 22.6 Glucose 117 H (74-106) mg/dL Calcium 8.4 L (8.5-10.1) mg/dL Total Bilirubin 0.5 (0.2-1.0) mg/dL AST 21 (15-37) U/L ALT 16 (14-59) U/L Alkaline Phosphatase 104 (46-116) U/L Troponin I High Sens 22.6 (4.0-51.3) pg/mL NT-Pro-B Natriuret Pep 7158.0 H* (<=1800.0) pg/mL Total Protein 7.3 (6.4-8.2) g/dL Albumin 2.2 L (3.4-5.0) g/dL Globulin 5.1 g/dL Albumin/Globulin Ratio 0.4 Imaging Data Chest x-ray: Radiologist's impression: ITS Impressions Chest X-Ray 06/28/25 13:25 IMPRESSION: WORSENING CHF FINDINGS. Impression dictated by: Cosme Morales Jr., D.O. 06/28/2025 2:33 PM Dictation Location[facility] Electronically authenticated by: [id number] Y Date: 06/28/2025 14:33 ECG Data Attestation: I personally reviewed and interpreted this ECG as follows: (EKG on my interpretation shows sinus rhythm with rate of 80 and no acute change) Critical Care Time Critical Care Time Critical Care Time: Yes Total Critical Care Time: 35 Attestation: Due to the high probability of sudden and clinically significant deterioration in the patient's condition he/she required the highest level of my preparedness to intervene urgently I provided critical care time including documentation time, medication orders and management, reevaluation, vital sign assessment, ordering and reviewing of lab tests, ordering and reviewing of x-ray studies, and admission orders. Aggregate critical care time is 35 minutes including only time during which I was engaged in work directly related to his/her care and did not include time spent treating other patients simultaneously. Discharge Plan Discharge Chief Complaint: Shortness of Breath/Dyspnea Clinical Impression: Congestive heart failure Patient Disposition: Admitted as Observation Time of Disposition Decision: 14:58 Condition: Fair
[2025-06-28 14:20] LABS: NT Pro B Type Natriuretic Pept 7158.0 pg/mL (<=1800.0)
[2025-06-28] MEDS: FUROSEMIDE 40 MG/4 ML VIAL IVP ×2 (15:14→21:29)
[2025-06-28 15:39] LABS: Glucose Urine UA 100 mg/dL (NEGATIVE)
[2025-06-28 15:48] LABS: Cast Seen? SEEN #/LPF (NONE SEEN); Crystals Seen? None Seen #/HPF (None Seen); Urine Culture Indicated NO
--- OUTSIDE RECORDS SUMMARY | 2025-06-28 16:18 | XMS_ITS | CCD ---
Author Organization [facility] Care Team Providers Care Light Adjuster Name Role Phone UNKNOWN, PROVIDER Unavailable Unavailable UNKNOWN, PROVIDER Unavailable Unavailable NIC BRYAN Unavailable Unavailable Akbar Cui II Unavailable SHANTEL STEVEN Primary Care Physician [phone] Shantel [address] Un[address] DR SHANTEL STEVEN Primary [...] Attending Provider MD Eloina Hussein Referring Provider Tuks, DO Jorge Luis Ross Emergency Provider MD [...] Care Provider Zhang Norwood DO Emergency Provider [phone] Daniele Jane DO Emergency Provider Shantel Cho MD Primary Care Provider Shantel Steven MD Primary Care Provider Jorge Calix DO Emergency Provider Jorge Calix DO Emergency Provider Unavailable Shantel Steven MD Primary Care Provider [phone] Cherie Rapp MD Attending Provider Cheng Aviles APRN Attending Provider Jorge Calix DO Emergency Provider Unavailable Wandy Alvarez CMA Attending Provider UnavailShantel Morales MD Attending Provider [phone] SABRINA LUNA Attending Unavailable YAMEL PANDYA Attending Unavailable YAMEL PANDYA Attending Unavailable YAMEL PANDYA Attending Unavailable RICA KAPLAN Attending Unavailable RICA KAPLAN Attending Unavailable SABRINA LUNA Attending Unavailable SABRINA LUNA Attending Unavailable SABRINA LUNA Attending Unavailable Shantel Steven MD Primary Care Provider Cheng Aviles APRN Attending Provider Wandy Alvarez CMA Attending Provider UnavailShantel Morales MD Attending Provider Analisa Bryant MD Attending Provider [phone] Monica Stewart MD Attending Provider Shantel Steven MD Primary Care Provider Cheng Aviles APRN Attending Provider Wandy Alvarez CMA Attending Provider UnavailJarred Paalcios DO Attending Provider [phone] Osbaldo Marlow MD Attending Provider Shantel Steven [...] Drugs) Drug allergy (disorder) 03-04-20 12 [facility] Repository (20 sources) Shellfish; Translations: [Shellfish] Food allergy (disorder) 03-04-20 12 rash, Eruption of skin (disorder) [facility] Repository (20 sources) Sulfonamides (Antibiotic); Translations: [SULFA (SULFONAMIDE ANTIBIOTICS)] Drug allergy (disorder) 03-04-20 12 Rash [facility] Repository (20 sources) Sulfacetamide Drug Allergy 02-15-20 24 diarrhea [facility] (20 sources) Contrast media; Translations: [contrast media (iodine-based)] Drug allergy 02-15-20 Unknown (qualifier value), Rash [facility] (6 sources) Sulfonamides (Antibiotic); Translations: [sulfa drugs] Drug allergy Diarrhea (finding) [facility] (2 sources) Glucosamine Drug Allergy [facility] Repository (2 sources) Iodine (And Iodine Containting Drugs) Drug allergy (disorder) 08-09-20 17 [facility] Repository (11 sources) Contrast media Propensity to adverse reactions 11-18-[address] DYE [employer] Other (20 sources) Iodine; Translations: [IODINE] Drug Allergy 10-30-20 14 Other, Unknown [employer] Other (20 sources) Substance with sulfonamide structure and antibacterial mechanism of action (substance) Drug allergy 10-30-20 14 Unknown [employer] Other (11 sources) Dyes Propensity to adverse reactions Comment:CT Dyes,Dyes,IVP Dyes [facility] [employer] Other (20 sources) Shellfish; Translations: [SHELLFISH DERIVED] Allergy to substance 10-30-20 [facility] (20 sources) Iodinated Contrast Media; Translations: [IODINATED CONTRAST MEDIA] Allergy to substance 02-15-20 [facility] (13 sources) metFORMIN; Translations: [METFORMIN HCL] Drug Allergy 07-03-20 [facility] (6 sources) Chocolate Flavoring Agent (Non-Screening) Propensity to adverse reactions 01-17-20 [facility] [email or web address] Work Phone: (12 sources) Shellfish-Derive d Products Drug Intolerance 03-15-20 [facility] (7 sources) Chocolate; Translations: [CHOCOLATE FLAVOR] Propensity to adverse reactions 01-17-20 [facility] [email or web address] Work Phone: (1 source) Sulfacetamide Drug Allergy 06-17-20 [facility] Repository (1 source) Sulfonamides (Antibiotic) Drug allergy (disorder) 06-17-20 [facility] Repository Medications Current Medications Medication Drug [...] ascorbic acid 226 mg / beta carotene 76765 unt / cuprous oxide 0.8 mg / dl-alpha tocopheryl acetate 200 unt / zinc oxide 34.8 mg oral capsule (5 sources) Vitamin C Start: 01-17-2024 Start: 01-17-2024 take 1 capsule by [facility] twice daily Vitamins A,C,L-Dqua-Xelpaw (Preservision Areds) 4,296 mcg-226 mg-90 mg capsule [...] 01-17-2024 End: 06-05-2024 take 1 capsule by [facility] every twenty-four hours Vitamin D3 125 MCG (5000 UT) 1 capsule Orally Once a day Active take 1 capsule by [facility] every twenty-four hours Vitamin D3 25 MCG (1000 UT) 1 capsule Orally Once a day Active cholestyramine resin 4000 mg powder for oral suspension (5 sources) Bile Acid Sequestrant Start: 03-07-2021 Questran 4 g/9 g ora l powder = 1 packet(s), Oral, Daily, # 30 EA, Refills(s) 11, Pharmacy: [facility], 165.1, cm, 03/07/21 13:49:00 EDT, Height/Length Dosing, 121.8, kg, 03/07/21 13:49:00 EDT, Weight Dosing Start Date: 03/07/21 Status: Ordered Start: 03-07-2021 Questran 4 g/9 g oral powder = 1 packet(s), Oral, Daily, # 30 EA, Refills(s) 11, Pharmacy: [facility], 165.1, cm, 03/07/21 13:49:00 EDT, Height/Length [...] Glucose Scanning Pauline bruce ([employer] [place]) misc (17 sources) Start: 09-10-2024 Flash Glucose Scanning [place] ([employer] [place]) misc Active 0 .Route September 10, 2024 8:12am As directed Start: 09-10-2024 Flash Glucose Scanning [place] ([employer] [place]) misc Active 0 .Route September 10, 2024 7:12am As directed Start: 07-16-2024 End: 09-10-2024 Flash Glucose Scanning Reade r ([employer] [place]) misc Discontinued 0 .Route July 16, 2024 12:00am September 10, 2024 8:13am As directed Start: 07-16-2024 End: 09-10-2024 Flash Glucose Scanning Reade r ([employer] [place]) misc Discontinued 0 .Route July 15, 2024 11:00pm September 10, 2024 7:13am As directed Start: 07-16-2024 Flash Glucose Scanning [place] ([employer] [place]) misc Active 0 .Route July 16, 2024 [...] capsule Orally Once a day Active Vitamins A,C,W-Qolw-Kyfjzz (Preservision Areds) 4,296 mcg-226 mg-90 mg capsule (18 sources) Start: 01-17-2024 take 1 capsule by mouth twice daily Vitamins A,C,X-Kjdd-Lszlzy (Preservision Areds) 4,296 mcg-226 mg-90 mg capsule Active 1 CAP PO Twice daily January 17, 2024 12:00am Start: 01-17-2024 take 1 capsule by [facility] twice daily Vitamins A,C,M-Wonb-Cwkytz (Preservision Areds) 4,296 mcg-226 mg-90 mg capsule [...] 12, 2021 12:00am June 19, 2021 3:13am [id number] actuat albuter ol 0.09 mg/actuat metered [...] bedtime Orally Once a day Not-Taking amylase 800631 unt / lipase 91585 unt / protease 94772 unt delayed release oral capsule (20 sources) Start: End: Start: 06-11-2021 End: 06-19-2021 Wegjhl-Xmxljmrc-Bqhczjn (Cre on) 24,000-76,000 -120,000 unit capsule,delayed release(DR/EC) Discontinued 1 - 2 CAP PO 1-2 TIMES DAILY June 11, 2021 12:00am June 19, 2021 3:12am Start: 05-10-2021 Creon 24,000 u nits oral delayed release capsule See Instructions, take 3 caps with each meal and 2 caps with each snack., # 390 caplet(s), Refills(s) 0, Pharmacy: [facility], 165.1, cm, 04/18/21 13:02:00 EDT, Height/Length [...] 01-17-2024 End: 04-03-2024 take 1 capsule by [facility] every twenty-four hours Biotin 5 MG [...] 06-04-2025 Start: 07-27-2022 take 1 capsule by [facility] once daily diltiazem 120 mg oral capsule, extended release 120 mg = 1 cap(s), Oral, Daily, Refills(s) 0 Start Date: 07/27/22 Status: Ordered Start: 06-19-2021 End: 02-09-2025 End: 07-22-2024 take 1 tablet by mouth in the morning dilTIAZem (Cardizem) 120 MG immediate release tablet Take 120 mg by mouth in the morning. 07/22/2024 Discontinued (Duplicate order) take 1 capsule by [facility] every twelve hours dilTIAZem HCl ER [...] 2024 12:06pm July 16, 2024 10:36am Nystatin 622181 UNIT/GM 1 application Externally Twice a day for 10 days Active Nystatin 947077 UNIT/GM 1 application Externally Twice a day for 10 days Active nystatin 428660 unt/ml / triamcinolone acetonide 1 mg/ml topical [...] June 05, 2024 11:06am swish and swallow Pomaria 0-Bof-Gvm-Fish Oil (Fish Oil) 1,000 mg (120 mg-180 mg) capsule (19 sources) Start: 01-17-2024 End: 04-03-2024 take 1 capsule by mouth once daily Pomaria 3-Gqw-Kmn-Fish Oil (Fish Oil) 1,000 mg (120 mg-180 mg) capsule Discontinued 1 CAP PO Daily January 17, 2024 12:00am April 03, 2024 10:49am Start: 01-17-2024 End: 04-03-2024 take 1 capsule by mouth once daily Pomaria 5-Knh-Bye-Fish Oil (Fish Oil) 1,000 mg (120 mg-180 mg) capsule Discontinued 1 CAP PO Daily January 17, 2024 1:00am April 03, 2024 11:49am Start: 01-17-2024 take 1 capsule by [facility] once daily Pomaria 8-Srj-Ijg-Fish Oil (Fish Oil) 1,000 mg (120 mg-180 [...] Coronary arteriosclerosis; Translations: [Atherosclerotic heart disease of [place] coronary artery without angina pectoris] Onset: 2 [...] sources) Long-term current use of insulin; Translations: [correction (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 insulin] Onset: 4 Resolved: 4 01-17-2024 Episodic Other aftercare (1 source) Other termite technician (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) drug therapy; Translations: [OTH HALFWAY CURRENT DRUG THERAPY] Onset: 3 Episodic Other aftercare (1 source) correction (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 anticoagulants; Translations: [UPHOLSTERER OUTSIDE CURRNT USE 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] Onset: 3 Episodic Other [...] 3 07-27-2022 Episodic Other aftercare (5 sources) correction (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 insulin; Translations: [UPHOLSTERER OUTSIDE CURRENT USE OF INSULIN] Onset: 3 Episodic [...] ALT [Catalytic activity/Vol] 11 U/L Normal 7-52 [facility] Comment on above: Performed By: #### A [facility] eA #### [facility] [address] Albumin [Mass/volume] in Ser um or Plasma by Bromocresol green (BCG) dye binding methoOrdered By: Shantel Steven on 06-15-2025 Albumin BCG dye [Mass/Vol] 2.8 g/dL Low 3.5-5.7 [facility] Alkaline phosphatase [Enzyma tic activity/volume] in Serum or PlasmaOrdered By: Shantel Steven on 06-15-2025 ALP [Catalytic activity/Vol] 103 U/L Normal 34-104 [facility] Comment on above: Result Comment: PERF ORMED BY: [place] [address] PATHOLOGIST SPEECH COMMUNICATION INSTRUCTOR SIMON LINTON M.D. Performed By: #### A [facility] eA #### [place] [address] [place] Aspartate aminotransferase [ Enzymatic activity/volume] in Serum or PlasmaOrdered By: Shantel Steven on 06-15-2025 AST [Catalytic activity/Vol] 13 U/L Normal 13-39 [facility] Comment on above: Performed By: #### A [facility] eA #### [address] Bilirubin.total [Mass/volume ] in Serum or PlasmaOrdered By: Shantel Steven on 06-15-2025 Bilirubin [Mass/Vol] 0.5 mg/dL Normal 0.3-1.0 [facility] Comment on above: Performed By: #### A [facility] eA #### [facility] [address] Calcium [Mass/volume] in Ser um or PlasmaOrdered By: Shantel Steven on 06-15-2025 Calcium [Mass/Vol] 8.3 mg/dL Low 8.6-10.3 [facility] Comment on above: Performed By: #### A [facility]C [facility] eA #### [address] Carbon dioxide, total [Moles /volume] in Serum or PlasmaOrdered By: Shantel Steven on 06-15-2025 CO2 [Moles/Vol] 31.9 mmol/L High 21.0-31.[address] [facility] Comment on above: Performed By: #### A [facility] eA #### [address] Chloride [Moles/volume] in S oziel or PlasmaOrdered By: Shantel Steven on 06-15-2025 Chloride [Moles/Vol] 103 mmol/L Normal 98-107 [facility] Comment on above: Performed By: #### A [facility] eA #### [address] Comprehensive Metabolic Pane daniele 06-15-2025 Albumin [Mass/Vol] 2.8 g/dL Low 3.5-5.7 [facility] Comment on above: Performed By: #### A [facility] eA #### [place] [address] [place] GFR/1.73 sq M.predicted MDRD (S/P/Bld) [Vol rate/Area] 38.841 mL/min/{1.73_m2} Normal [facility] Comment on above: Performed By: #### A [facility] eA #### [address] Creatinine [Mass/volume] in Serum or PlasmaOrdered By: Shantel Steven on 06-15-2025 Creatinine [Mass/Vol] 1.39 mg/dL High 0.60-1.20 [facility] Comment on above: Performed By: #### A [facility] eA #### [facility] [address] Glucose [Mass/volume] in Ser um or PlasmaOrdered By: Shantel Steven on 06-15-2025 Glucose [Mass/Vol] 235 mg/dL High 70-100 [facility] Comment on above: Result Comment: [place] Glucose Reference Range is dependent on time and content of last meal. Glucose of more than 200 mg/dL in a nonstressed, ambulatory subject supports the diagnosis of Diabetes Mellitus. ADA recommended reference range Performed By: #### A [facility] eA #### [address] No Panel InformationOrdered By: Shantel Steven on 06-15-2025 38.841 mL/Min [facility] N/A [facility] Potassium [Moles/volume] in Serum or PlasmaOrdered By: Shantel Steven on 06-15-2025 Potassium [Moles/Vol] 3.7 mmol/L Normal 3.5-5.1 [facility] Comment on above: Performed By: #### A [facility] eA #### [address] Protein [Mass/volume] in Ser um or PlasmaOrdered By: Shantel Steven on 06-15-2025 Protein [Mass/Vol] 6.3 g/dL Low 6.4-8.9 [facility] Comment on above: Performed By: #### A [facility] eA #### [address] Serum globulin measurement b y calculation (mass/volume)Ordered By: Shantel Steven on 06-15-2025 Globulin (S) [Mass/Vol] 3.5 g/dL [facility] Comment on above: Performed By: #### A [facility] eA #### [address] Serum or plasma albumin/glob ulin mass ratioOrdered By: Shantel Steven on 06-15-2025 Albumin/Globulin [Mass ratio] 0.8 {ratio} [facility] Comment on above: Performed By: #### A [facility] eA #### [facility] [address] Serum or plasma anion gap de terminationOrdered By: Shantel Steven on 06-15-2025 Anion gap [Moles/Vol] 9.8 mmol/L Normal 6.0-15.0 [facility] Comment on above: Performed By: #### A [facility] eA #### [facility] [address] [place] [address] Sodium [Moles/volume] in Ser um or PlasmaOrdered By: Shantel Steven on 06-15-2025 Sodium [Moles/Vol] 141 mmol/L Normal 136-145 [facility] Comment on above: Performed By: #### A [facility] eA #### [address] Urea nitrogen [Mass/volume] in Serum or PlasmaOrdered By: Shantel Steven on 06-15-2025 Urea nitrogen [Mass/Vol] 31 mg/dL High 7-25 [facility] Comment on above: Performed By: #### A [facility] eA #### [facility] [address] [place] [address] Basophils Auto (Bld) [#/Vol] Ordered By: Osbaldo Marlow on 06-10-2025 Basophils (Bld) [#/Vol] 0.1 10 3/uL 0.0-0.1 [facility] Basophils/100 WBC Auto (Bld) Ordered By: Osbaldo Marlow on 06-10-2025 Basophils/100 WBC (Bld) 1.1 % 0.2-2.0 [facility] Eosinophils/100 WBC Auto (Bl d)Ordered By: Osbaldo Marlow on 06-10-2025 Eosinophils/100 WBC (Bld) 2.1 % 0.9-7.0 [facility] Erythrocyte distribution wid th Auto (RBC) [Ratio]Ordered By: Osbaldo Marlow on 06-10-2025 Erythrocyte distribution width (RBC) [Ratio] 16.4 % High 11.0-15.0 [facility] Estimated glomerular filtrat ion rate (GFR) non- AmericanOrdered By: Osbaldo Marlow on 06-10-2025 GFR/1.73 sq M.predicted among non-blacks MDRD (S/P/Bld) [Vol rate/Area] 27 mL/min/{1.73_m2} Low >=60 mL/min/1.73 m 2 [facility] Globulin Calc (S) [Mass/Vol] Ordered By: Osbaldo Marlow on 06-10-2025 Globulin (S) [Mass/Vol] 4.6 g/dL [facility] Hematocrit Auto (Bld) [Volum e fraction]Ordered By: Osbaldo Marlow on 06-10-2025 Hematocrit (Bld) [Volume fraction] 31.3 % Low 36.0-48.0 [facility] Hemoglobin [Mass/volume] in BloodOrdered By: Osbaldo Marlow on 06-10-2025 Hemoglobin (Bld) [Mass/Vol] 10.1 g/dL Low 12.0-16.0 [facility] Leukocytes [#/volume] correc gali for nucleated erythrocytes in Blood by Automated counOrdered By: Osbaldo Marlow on 06-10-2025 WBC corrected for nucl RBC Auto (Bld) [#/Vol] 9.0 10 3/uL 4.0-11.0 [facility] Lymphocytes Auto (Bld) [#/Vo l]Ordered By: Osbaldo Marlow on 06-10-2025 Lymphocytes (Bld) [#/Vol] 1.4 10 3/uL 1.2-3.8 [facility] Lymphocytes/100 WBC Auto (Bl d)Ordered By: Osbaldo Marlow on 06-10-2025 Lymphocytes/100 WBC (Bld) 15.0 % Low 20.5-60.0 [facility] MCH Auto (RBC) [Entitic mass ]Ordered By: Osbaldo Marlow on 06-10-2025 MCH (RBC) [Entitic mass] 29.6 pg 26.7-34.0 [facility] MCHC Auto (RBC) [Mass/Vol]Or dered By: Osbaldo Marlow on 06-10-2025 MCHC (RBC) [Mass/Vol] 32.3 g/dL 29.9-35.2 [facility] MCV Auto (RBC) [Entitic vol] Ordered By: Osbaldo Marlow on 06-10-2025 MCV (RBC) [Entitic vol] 91.8 fL 81.0-99.0 [facility] Monocytes Auto (Bld) [#/Vol] Ordered By: Osbaldo Marlow on 06-10-2025 Monocytes (Bld) [#/Vol] 0.5 10 3/uL 0.3-0.8 [facility] Monocytes/100 WBC Auto (Bld) Ordered By: Osbaldo Marlow on 06-10-2025 Monocytes/100 WBC (Bld) 5.6 % 1.7-12.0 [facility] Neutrophils Auto (Bld) [#/Vo l]Ordered By: Osbaldo Marlow on 06-10-2025 Neutrophils (Bld) [#/Vol] 6.8 10 3/uL High 1.4-6.5 [facility] Neutrophils/100 WBC Auto (Bl d)Ordered By: Osbaldo Marlow on 06-10-2025 Neutrophils/100 WBC (Bld) 75.9 % High 43.0-75.0 [facility] No Panel InformationOrdered By: Osbaldo Marlow on 06-10-2025 2.0 mg/dL 1.8-2.4 [facility] 4.4 mg/dL 2.6-4.7 [facility] 1.7 g/dL Low 3.4-5.0 [facility] 0.2 10 3/uL 0.0-0.7 [facility] 96 U/L 46-116 [facility] 14 U/L 14-59 [facility] 15 U/L 15-37 [facility] 16.6 [facility] 0.03 10 3/uL 0.00-0.03 [facility] 30.0 mg/dL High 7.0-18.0 [facility] 0.3 % 0.0-0.5 [facility] 8.2 mg/dL Low 8.5-10.1 [facility] 108 mmol/L High 98-107 [facility] 30.5 mmol/L 21.0-32.0 [facility] 1.81 mg/dL High 0.55-1.02 [facility] 33 Low >=60 mL/min/1.73 m 2 [facility] 117 mg/dL High 74-106 [facility] 3.3 mmol/L Low 3.5-5.1 [facility] 146 mmol/L High 136-145 [facility] 0.4 mg/dL 0.2-1.0 [facility] 6.3 g/dL Low 6.4-8.2 [facility] Platelet mean volume Auto (B ld) [Entitic vol]Ordered By: Osbaldo Marlow on 06-10-2025 Platelet mean volume (Bld) [Entitic vol] 10.0 fL 9.5-13.5 [facility] Platelets Auto (Bld) [#/Vol] Ordered By: Osbaldo Marlow on 06-10-2025 Platelets (Bld) [#/Vol] 248 10 3/uL 150-450 [facility] RBC Auto (Bld) [#/Vol]Ordere d By: Osbaldo Marlow on 06-10-2025 RBC (Bld) [#/Vol] 3.41 10 6/uL Low 4.20-5.40 [facility] Serum or plasma albumin/glob ulin mass ratioOrdered By: Osbaldo Marlow on 06-10-2025 Albumin/Globulin [Mass ratio] 0.4 {ratio} [facility] Serum or plasma anion gap de terminationOrdered By: Osbaldo Marlow on 06-10-2025 Anion gap [Moles/Vol] 10.8 mmol/L [facility] Basophils Auto (Bld) [#/Vol] Ordered By: Osbaldo Marlow on 06-09-2025 Basophils (Bld) [#/Vol] 0.1 10 3/uL 0.0-0.1 [facility] Basophils/100 WBC Auto (Bld) Ordered By: Osbaldo Marlow on 06-09-2025 Basophils/100 WBC (Bld) 1.1 % 0.2-2.0 [facility] Eosinophils/100 WBC Auto (Bl d)Ordered By: Osbaldo Marlow on 06-09-2025 Eosinophils/100 WBC (Bld) 1.8 % 0.9-7.0 [facility] Erythrocyte distribution wid th Auto (RBC) [Ratio]Ordered By: Osbaldo Marlow on 06-09-2025 Erythrocyte distribution width (RBC) [Ratio] 15.9 % High 11.0-15.0 [facility] Estimated glomerular filtrat ion rate (GFR) non- AmericanOrdered By: Cheng Aviles on 06-09-2025 GFR/1.73 sq M.predicted among non-blacks MDRD (S/P/Bld) [Vol rate/Area] 33 mL/min/{1.73_m2} Low >=60 mL/min/1.73 m 2 [facility] Globulin Calc (S) [Mass/Vol] Ordered By: Cheng Aviles on 06-09-2025 Globulin (S) [Mass/Vol] 4.9 g/dL [facility] Hematocrit Auto (Bld) [Volum e fraction]Ordered By: Osbaldo Marlow on 06-09-2025 Hematocrit (Bld) [Volume fraction] 31.8 % Low 36.0-48.0 [facility] Hemoglobin [Mass/volume] in BloodOrdered By: Osbaldo Marlow on 06-09-2025 Hemoglobin (Bld) [Mass/Vol] 10.4 g/dL Low 12.0-16.0 [facility] Leukocytes [#/volume] correc gali for nucleated erythrocytes in Blood by Automated counOrdered By: Osbaldo Marlow on 06-09-2025 WBC corrected for nucl RBC Auto (Bld) [#/Vol] 8.3 10 3/uL 4.0-11.0 [facility] Lymphocytes Auto (Bld) [#/Vo l]Ordered By: Osbaldo Marlow on 06-09-2025 Lymphocytes (Bld) [#/Vol] 1.4 10 3/uL 1.2-3.8 [facility] Lymphocytes/100 WBC Auto (Bl d)Ordered By: Osbaldo Marlow on 06-09-2025 Lymphocytes/100 WBC (Bld) 17.3 % Low 20.5-60.0 [facility] MCH Auto (RBC) [Entitic mass ]Ordered By: Osbaldo Marlow on 06-09-2025 MCH (RBC) [Entitic mass] 29.3 pg 26.7-34.0 [facility] MCHC Auto (RBC) [Mass/Vol]Or dered By: Osbaldo Marlow on 06-09-2025 MCHC (RBC) [Mass/Vol] 32.7 g/dL 29.9-35.2 [facility] MCV Auto (RBC) [Entitic vol] Ordered By: Osbaldo Marlow on 06-09-2025 MCV (RBC) [Entitic vol] 89.6 fL 81.0-99.0 [facility] Monocytes Auto (Bld) [#/Vol] Ordered By: Osbaldo Marlow on 06-09-2025 Monocytes (Bld) [#/Vol] 0.5 10 3/uL 0.3-0.8 [facility] Monocytes/100 WBC Auto (Bld) Ordered By: Osbaldo Marlow on 06-09-2025 Monocytes/100 WBC (Bld) 6.5 % 1.7-12.0 [facility] Neutrophils Auto (Bld) [#/Vo l]Ordered By: Osbaldo Marlow on 06-09-2025 Neutrophils (Bld) [#/Vol] 6.1 10 3/uL 1.4-6.5 [facility] Neutrophils/100 WBC Auto (Bl d)Ordered By: Osbaldo Marlow on 06-09-2025 Neutrophils/100 WBC (Bld) 72.9 % 43.0-75.0 [facility] No Panel InformationOrdered By: Osbaldo Marlow on 06-09-2025 1.3 mg/dL Low 1.8-2.4 [facility] 3.8 mg/dL 2.6-4.7 [facility] 0.2 10 3/uL 0.0-0.7 [facility] 0.03 10 3/uL 0.00-0.03 [facility] 0.4 % 0.0-0.5 [facility] [facility] No Panel InformationOrdered By: Cheng Aviles on 06-09-2025 1.7 g/dL Low 3.4-5.0 [facility] 104 U/L 46-116 [facility] 14 U/L 14-59 [facility] 13 U/L Low 15-37 [facility] 18.3 [facility] 28.0 mg/dL High 7.0-18.0 [facility] 8.1 mg/dL Low 8.5-10.1 [facility] 106 mmol/L 98-107 [facility] 29.8 mmol/L 21.0-32.0 [facility] 1.53 mg/dL High 0.55-1.02 [facility] 40 Low >=60 mL/min/1.73 m 2 [facility] 79 mg/dL 74-106 [facility] 2.7 mmol/L Critically low 3.5-5.1 [facility] 146 mmol/L High 136-145 [facility] 0.4 mg/dL 0.2-1.0 [facility] 6.6 g/dL 6.4-8.2 [facility] Platelet mean volume Auto (B ld) [Entitic vol]Ordered By: Osbaldo Marlow on 06-09-2025 Platelet mean volume (Bld) [Entitic vol] 11.2 fL 9.5-13.5 [facility] Platelets Auto (Bld) [#/Vol] Ordered By: Osbaldo Marlow on 06-09-2025 Platelets (Bld) [#/Vol] 222 10 3/uL 150-450 [facility] RBC Auto (Bld) [#/Vol]Ordere d By: Osbaldo Marlow on 06-09-2025 RBC (Bld) [#/Vol] 3.55 10 6/uL Low 4.20-5.40 [facility] Serum or plasma albumin/glob ulin mass ratioOrdered By: Cheng Aviles on 06-09-2025 Albumin/Globulin [Mass ratio] 0.3 {ratio} [facility] Serum or plasma anion gap de terminationOrdered By: Cheng Aviles on 06-09-2025 Anion gap [Moles/Vol] 12.9 mmol/L [facility] Basophils Auto (Bld) [#/Vol] Ordered By: Jarred Galan on 06-08-2025 Basophils (Bld) [#/Vol] 0.1 10 3/uL 0.0-0.1 [facility] Basophils/100 WBC Auto (Bld) Ordered By: Jarred Galan on 06-08-2025 Basophils/100 WBC (Bld) 1.2 % 0.2-2.0 [facility] Eosinophils/100 WBC Auto (Bl d)Ordered By: Jarred Galan on 06-08-2025 Eosinophils/100 WBC (Bld) 1.9 % 0.9-7.0 [facility] Erythrocyte distribution wid th Auto (RBC) [Ratio]Ordered By: Jarred Galan on 06-08-2025 Erythrocyte distribution width (RBC) [Ratio] 16.1 % High 11.0-15.0 [facility] Estimated glomerular filtrat ion rate (GFR) non- AmericanOrdered By: Jarred Galan on 06-08-2025 GFR/1.73 sq M.predicted among non-blacks MDRD (S/P/Bld) [Vol rate/Area] 29 mL/min/{1.73_m2} Low >=60 mL/min/1.73 m 2 [facility] Hematocrit Auto (Bld) [Volum e fraction]Ordered By: Jarred Galan on 06-08-2025 Hematocrit (Bld) [Volume fraction] 35.3 % Low 36.0-48.0 [facility] Hemoglobin [Mass/volume] in BloodOrdered By: Jarred Galan on 06-08-2025 Hemoglobin (Bld) [Mass/Vol] 11.4 g/dL Low 12.0-16.0 [facility] Leukocytes [#/volume] correc gali for nucleated erythrocytes in Blood by Automated counOrdered By: Jarred Galan on 06-08-2025 WBC corrected for nucl RBC Auto (Bld) [#/Vol] 8.5 10 3/uL 4.0-11.0 [facility] Lymphocytes Auto (Bld) [#/Vo l]Ordered By: Jarred Galan on 06-08-2025 Lymphocytes (Bld) [#/Vol] 1.1 10 3/uL Low 1.2-3.8 [facility] Lymphocytes/100 WBC Auto (Bl d)Ordered By: Jarred Galan on 06-08-2025 Lymphocytes/100 WBC (Bld) 13.3 % Low 20.5-60.0 [facility] MCH Auto (RBC) [Entitic mass ]Ordered By: Jarred Galan on 06-08-2025 MCH (RBC) [Entitic mass] 29.2 pg 26.7-34.0 [facility] MCHC Auto (RBC) [Mass/Vol]Or dered By: Jarred Galan on 06-08-2025 MCHC (RBC) [Mass/Vol] 32.3 g/dL 29.9-35.2 [facility] MCV Auto (RBC) [Entitic vol] Ordered By: Jarred Galan on 06-08-2025 MCV (RBC) [Entitic vol] 90.3 fL 81.0-99.0 [facility] Monocytes Auto (Bld) [#/Vol] Ordered By: Jarred Galan on 06-08-2025 Monocytes (Bld) [#/Vol] 0.4 10 3/uL 0.3-0.8 [facility] Monocytes/100 WBC Auto (Bld) Ordered By: Jarred Galan on 06-08-2025 Monocytes/100 WBC (Bld) 5.2 % 1.7-12.0 [facility] Neutrophils Auto (Bld) [#/Vo l]Ordered By: Jarred Galan on 06-08-2025 Neutrophils (Bld) [#/Vol] 6.6 10 3/uL High 1.4-6.5 [facility] Neutrophils/100 WBC Auto (Bl d)Ordered By: Jarred Galan on 06-08-2025 Neutrophils/100 WBC (Bld) 78.2 % High 43.0-75.0 [facility] No Panel InformationOrdered By: Jarred Galan on 06-08-2025 SEEN #/LPF Abnormal NONE SEEN [facility] None Seen #/HPF None Seen [facility] TRACE #/HPF Abnormal NONE SEEN [facility] MODERATE [facility] CLEAR CLEAR [facility] LT. YELLOW YELLOW [facility] 250 mg/dL Abnormal NEGATIVE [facility] SMALL Abnormal NONE SEEN [facility] 6.5 5.0-9.0 [facility] >=300 mg/dL Abnormal NEG/TRACE [facility] 0-2 #/HPF 0-2 [facility] 1.020 1.005-1.025 [facility] FEW #/LPF Abnormal NONE/RARE [facility] RARE #/LPF Abnormal NONE SEEN [facility] 0.2 EU/dL 0.2-1.0 [facility] 2-5 #/HPF Abnormal NONE SEEN [facility] Negative NEGATIVE [facility] 06302.0 pg/mL Critically high <=1800.0 [facility] 26.7 pg/mL 4.0-51.3 [facility] 0.7 mmol/L 0.4-2.0 [facility] 17.8 [facility] 30.0 mg/dL High 7.0-18.0 [facility] 0.2 10 3/uL 0.0-0.7 [facility] 8.7 mg/dL 8.5-10.1 [facility] 105 mmol/L 98-107 [facility] 30.5 mmol/L 21.0-32.0 [facility] 1.69 mg/dL High 0.55-1.02 [facility] 0.02 10 3/uL 0.00-0.03 [facility] 35 Low >=60 mL/min/1.73 m 2 [facility] 0.2 % 0.0-0.5 [facility] 177 mg/dL High 74-106 [facility] 3.2 mmol/L Low 3.5-5.1 [facility] 144 mmol/L 136-145 [facility] Platelet mean volume Auto (B ld) [Entitic vol]Ordered By: Jarred Galan on 06-08-2025 Platelet mean volume (Bld) [Entitic vol] 9.8 fL 9.5-13.5 [facility] Platelets Auto (Bld) [#/Vol] Ordered By: Jarred Galan on 06-08-2025 Platelets (Bld) [#/Vol] 291 10 3/uL 150-450 [facility] RBC Auto (Bld) [#/Vol]Ordere d By: Jarred Angelia on 06-08-2025 RBC (Bld) [#/Vol] 3.91 10 6/uL Low 4.20-5.40 [facility] Serum or plasma anion gap de terminationOrdered By: Jarred Galan on 06-08-2025 Anion gap [Moles/Vol] 11.7 mmol/L [facility] Urine Cultureon 06-02-2025 Bacteria identified Cx Nom (U) 50,000 colonies/ml mixed bacterial skin contaminants 2 Days PERFORMED BY: [facility] [address] [place] [address] PATHOLOGIST SPEECH COMMUNICATION INSTRUCTOR SIMON Lynn [facility] Comment on above: Performed By: #### M Bela, BMP #### [facility] [address] Urine cultureOrdered By: Alessia Steven on 06-02-2025 Bacteria identified Cx Nom (U) 2 Days [facility] Estimated glomerular filtrat ion rate (GFR) non- AmericanOrdered By: Monica Stewart on 05-31-2025 GFR/1.73 sq M.predicted among non-blacks MDRD (S/P/Bld) [Vol rate/Area] 31 mL/min/{1.73_m2} Low >=60 mL/min/1.73 m 2 [facility] No Panel InformationOrdered By: Monica Stewart on 05-31-2025 31.3 [facility] 50.0 mg/dL High 7.0-18.0 [facility] 8.2 mg/dL Low 8.5-10.1 [facility] 106 mmol/L 98-107 [facility] 26.2 mmol/L 21.0-32.0 [facility] 1.60 mg/dL High 0.55-1.02 [facility] 38 Low >=60 mL/min/1.73 m 2 [facility] 103 mg/dL 74-106 [facility] 3.8 mmol/L 3.5-5.1 [facility] 142 mmol/L 136-145 [facility] Serum or plasma anion gap de terminationOrdered By: Monica Stewart on 05-31-2025 Anion gap [Moles/Vol] 13.6 [facility]L [facility] Erythrocyte distribution wid th Auto (RBC) [Ratio]Ordered By: Monica Stewart on 05-30-2025 Erythrocyte distribution width (RBC) [Ratio] 17.2 % High 11.0-15.0 [facility] Estimated glomerular filtrat ion rate (GFR) non- AmericanOrdered By: Monica Stewart on 05-30-2025 GFR/1.73 sq M.predicted among non-blacks MDRD (S/P/Bld) [Vol rate/Area] 28 mL/min/{1.73_m2} Low >=60 mL/min/1.73 m 2 [facility] Hematocrit Auto (Bld) [Volum e fraction]Ordered By: Monica Stewart on 05-30-2025 Hematocrit (Bld) [Volume fraction] 32.9 % Low 36.0-48.0 [facility] Hemoglobin [Mass/volume] in BloodOrdered By: Monica Stewart on 05-30-2025 Hemoglobin (Bld) [Mass/Vol] 10.6 g/dL Low 12.0-16.0 [facility] Leukocytes [#/volume] correc gali for nucleated erythrocytes in Blood by Automated counOrdered By: Moniac Stewart on 05-30-2025 WBC corrected for nucl RBC Auto (Bld) [#/Vol] 18.7 10 3/uL High 4.0-11.0 [facility] MCH Auto (RBC) [Entitic mass ]Ordered By: Monica Stewart on 05-30-2025 MCH (RBC) [Entitic mass] 29.7 pg 26.7-34.0 [facility] MCHC Auto (RBC) [Mass/Vol]Or dered By: Monica Stewart on 05-30-2025 MCHC (RBC) [Mass/Vol] 32.2 g/dL 29.9-35.2 [facility] MCV Auto (RBC) [Entitic vol] Ordered By: Monica Stewart on 05-30-2025 MCV (RBC) [Entitic vol] 92.2 fL 81.0-99.0 [facility] No Panel InformationOrdered By: Monica Stewart on 05-30-2025 1.8 mg/dL 1.8-2.4 [facility] 26.4 [facility] 47.0 mg/dL High 7.0-18.0 [facility] 8.5 mg/dL 8.5-10.1 [facility] 106 mmol/L 98-107 [facility] 27.5 mmol/L 21.0-32.0 [facility] 1.78 mg/dL High 0.55-1.02 [facility] 33 Low >=60 mL/min/1.73 m 2 [facility] 97 mg/dL 74-106 [facility] 4.0 mmol/L 3.5-5.1 [facility] 143 mmol/L 136-145 [facility] Platelet mean volume Auto (B ld) [Entitic vol]Ordered By: Monica Stewart on 05-30-2025 Platelet mean volume (Bld) [Entitic vol] 10.3 fL 9.5-13.5 [facility] Platelets Auto (Bld) [#/Vol] Ordered By: Monica Stewart on 05-30-2025 Platelets (Bld) [#/Vol] 183 10 3/uL 150-450 [facility] RBC Auto (Bld) [#/Vol]Ordere d By: Monica Stewart on 05-30-2025 RBC (Bld) [#/Vol] 3.57 10 6/uL Low 4.20-5.40 [facility] Serum or plasma anion gap de terminationOrdered By: Monica Stewart on 05-30-2025 Anion gap [Moles/Vol] 13.5 mmol/L [facility] Basophils/100 WBC Manual cnt (Bld)Ordered By: Monica Stewart on 05-29-2025 Basophils/100 WBC (Bld) 0.0 % Low 0.2-2.0 [facility] Eosinophils/100 WBC Manual c nt (Bld)Ordered By: Monica Stewart on 05-29-2025 Eosinophils/100 WBC (Bld) 0.0 % Low 0.9-7.0 [facility] Erythrocyte distribution wid th Auto (RBC) [Ratio]Ordered By: Monica Stewart on 05-29-2025 Erythrocyte distribution width (RBC) [Ratio] 16.6 % High 11.0-15.0 [facility] Estimated glomerular filtrat ion rate (GFR) non- AmericanOrdered By: Monica Stewart on 05-29-2025 GFR/1.73 sq M.predicted among non-blacks MDRD (S/P/Bld) [Vol rate/Area] 33 mL/min/{1.73_m2} Low >=60 mL/min/1.73 m 2 [facility] Glucose mean value [Mass/vol ume] in Blood Estimated from glycated hemoglobinOrdered By: Monica Stewart on 05-29-2025 Average glucose Estimated from glycated hemoglobin (Bld) [Mass/Vol] 209 mg/dL [facility] Hematocrit Auto (Bld) [Volum e fraction]Ordered By: Monica Stewart on 05-29-2025 Hematocrit (Bld) [Volume fraction] 32.2 % Low 36.0-48.0 [facility] Hemoglobin A1c percentageOrd ered By: Monica Stewart on 05-29-2025 HbA1c (Bld) [Mass fraction] 8.9 % High 4.5-6.2 [facility] Hemoglobin [Mass/volume] in BloodOrdered By: Monica Stewart on 05-29-2025 Hemoglobin (Bld) [Mass/Vol] 10.6 g/dL Low 12.0-16.0 [facility] Leukocytes [#/volume] correc gali for nucleated erythrocytes in Blood by Automated counOrdered By: Monica Stewart on 05-29-2025 WBC corrected for nucl RBC Auto (Bld) [#/Vol] 19.8 10 3/uL High 4.0-11.0 [facility] MCH Auto (RBC) [Entitic mass ]Ordered By: Monica Stewart on 05-29-2025 MCH (RBC) [Entitic mass] 29.9 pg 26.7-34.0 [facility] MCHC Auto (RBC) [Mass/Vol]Or dered By: Monica Stewart on 05-29-2025 MCHC (RBC) [Mass/Vol] 32.9 g/dL 29.9-35.2 [facility] MCV Auto (RBC) [Entitic vol] Ordered By: Monica Stewart on 05-29-2025 MCV (RBC) [Entitic vol] 91.0 fL 81.0-99.0 [facility] No Panel InformationOrdered By: Monica Stewart on 05-29-2025 1.2 mg/dL Low 1.8-2.4 [facility] 0.00 10 3/uL 0.00-0.70 [facility] 27.5 [facility] 42.0 mg/dL High 7.0-18.0 [facility] 8.3 mg/dL Low 8.5-10.1 [facility] 105 mmol/L 98-107 [facility] 0.59 10 3/uL Low 1.20-3.80 [facility] 28.4 mmol/L 21.0-32.0 [facility] 3.0 % Low 20.5-60.0 [facility] 1.53 mg/dL High 0.55-1.02 [facility] 1.18 10 3/uL High 0.30-0.80 [facility] 40 Low >=60 mL/min/1.73 m 2 [facility] 6.0 % 1.7-12.0 [facility] 18.01 10 3/uL High 1.4-6.5 [facility] 130 mg/dL High 74-106 [facility] 3.8 mmol/L 3.5-5.1 [facility] 143 mmol/L 136-145 [facility] Platelet mean volume Auto (B ld) [Entitic vol]Ordered By: Monica Stewart on 05-29-2025 Platelet mean volume (Bld) [Entitic vol] 10.3 fL 9.5-13.5 [facility] Platelets Auto (Bld) [#/Vol] Ordered By: Monica Stewart on 05-29-2025 Platelets (Bld) [#/Vol] 208 10 3/uL 150-450 [facility] RBC Auto (Bld) [#/Vol]Ordere d By: Monica Stewart on 05-29-2025 RBC (Bld) [#/Vol] 3.54 10 6/uL Low 4.20-5.40 [facility] Segmented neutrophils/100 WB C Manual cnt (Bld)Ordered By: Monica Stewart on 05-29-2025 Segmented neutrophils/100 WBC (Bld) 91.0 % High 43.0-75.0 [facility] Serum or plasma anion gap de terminationOrdered By: Monica Stewart on 05-29-2025 Anion gap [Moles/Vol] 13.4 mmol/L [facility] Basophils Auto (Bld) [#/Vol] Ordered By: Analisa Bryant on 05-28-2025 Basophils (Bld) [#/Vol] 0.1 10 3/uL 0.0-0.1 [facility] Basophils/100 WBC Auto (Bld) Ordered By: Analisa Bryant on 05-28-2025 Basophils/100 WBC (Bld) 1.3 % 0.2-2.0 [facility] Eosinophils/100 WBC Auto (Bl d)Ordered By: Analisa Bryant on 05-28-2025 Eosinophils/100 WBC (Bld) 3.3 % 0.9-7.0 [facility] Erythrocyte distribution wid th Auto (RBC) [Ratio]Ordered By: Analisa Bryant on 05-28-2025 Erythrocyte distribution width (RBC) [Ratio] 16.9 % High 11.0-15.0 [facility] Estimated glomerular filtrat ion rate (GFR) non- AmericanOrdered By: Analisa Bryant on 05-28-2025 GFR/1.73 sq M.predicted among non-blacks MDRD (S/P/Bld) [Vol rate/Area] 34 mL/min/{1.73_m2} Low >=60 mL/min/1.73 m 2 [facility] Hematocrit Auto (Bld) [Volum e fraction]Ordered By: Analisa Bryant on 05-28-2025 Hematocrit (Bld) [Volume fraction] 34.4 % Low 36.0-48.0 [facility] Hemoglobin [Mass/volume] in BloodOrdered By: Analisa Bryant on 05-28-2025 Hemoglobin (Bld) [Mass/Vol] 11.2 g/dL Low 12.0-16.0 [facility] Leukocytes [#/volume] correc gali for nucleated erythrocytes in Blood by Automated counOrdered By: Analisa Bryant on 05-28-2025 WBC corrected for nucl RBC Auto (Bld) [#/Vol] 6.9 10 3/uL 4.0-11.0 [facility] Lymphocytes Auto (Bld) [#/Vo l]Ordered By: Analisa Bryant on 05-28-2025 Lymphocytes (Bld) [#/Vol] 1.4 10 3/uL 1.2-3.8 [facility] Lymphocytes/100 WBC Auto (Bl d)Ordered By: Analisa Bryant on 05-28-2025 Lymphocytes/100 WBC (Bld) 20.0 % Low 20.5-60.0 [facility] MCH Auto (RBC) [Entitic mass ]Ordered By: Analisa Bryant on 05-28-2025 MCH (RBC) [Entitic mass] 29.7 pg 26.7-34.0 [facility] MCHC Auto (RBC) [Mass/Vol]Or dered By: Analisa Bryant on 05-28-2025 MCHC (RBC) [Mass/Vol] 32.6 g/dL 29.9-35.2 [facility] MCV Auto (RBC) [Entitic vol] Ordered By: Analisa Bryant on 05-28-2025 MCV (RBC) [Entitic vol] 91.2 fL 81.0-99.0 [facility] Monocytes Auto (Bld) [#/Vol] Ordered By: Analisa Bryant on 05-28-2025 Monocytes (Bld) [#/Vol] 0.6 10 3/uL 0.3-0.8 [facility] Monocytes/100 WBC Auto (Bld) Ordered By: Analisa Bryant on 05-28-2025 Monocytes/100 WBC (Bld) 8.9 % 1.7-12.0 [facility] Neutrophils Auto (Bld) [#/Vo l]Ordered By: Analisa Bryant on 05-28-2025 Neutrophils (Bld) [#/Vol] 4.6 10 3/uL 1.4-6.5 [facility] Neutrophils/100 WBC Auto (Bl d)Ordered By: Analisa Bryant on 05-28-2025 Neutrophils/100 WBC (Bld) 66.4 % 43.0-75.0 [facility] No Panel InformationOrdered By: Analisa Bryant on 05-28-2025 NO [facility] SEEN #/LPF Abnormal NONE SEEN [facility] Seen #/HPF Abnormal None Seen [facility] RARE [facility] TRACE #/HPF Abnormal NONE SEEN [facility] Negative NEGATIVE [facility] SMALL Abnormal NEGATIVE [facility] CLEAR CLEAR [facility] LT. YELLOW YELLOW [facility] 100 mg/dL Abnormal NEGATIVE [facility] NONE SEEN NONE SEEN [facility] 7.0 5.0-9.0 [facility] >=300 mg/dL Abnormal NEG/TRACE [facility] 0-2 #/HPF Abnormal NONE SEEN [facility] 1.020 1.005-1.025 [facility] RARE #/LPF NONE/RARE [facility] 0.2 EU/dL 0.2-1.0 [facility] 6395.0 pg/mL Critically high <=1800.0 [facility] 18.7 pg/mL 4.0-51.3 [facility] 32.4 [facility] 48.0 mg/dL High 7.0-18.0 [facility] 0.2 10 3/uL 0.0-0.7 [facility] 8.5 mg/dL 8.5-10.1 [facility] 107 mmol/L 98-107 [facility] 29.3 mmol/L 21.0-32.0 [facility] 1.48 mg/dL High 0.55-1.02 [facility] 0.01 10 3/uL 0.00-0.03 [facility] 41 Low >=60 mL/min/1.73 m 2 [facility] 0.1 % 0.0-0.5 [facility] 64 mg/dL Low 74-106 [facility] 4.1 mmol/L 3.5-5.1 [facility] 143 mmol/L 136-145 [facility] Platelet mean volume Auto (B ld) [Entitic vol]Ordered By: Analisa Bryant on 05-28-2025 Platelet mean volume (Bld) [Entitic vol] 10.0 fL 9.5-13.5 [facility] Platelets Auto (Bld) [#/Vol] Ordered By: Analisa Bryant on 05-28-2025 Platelets (Bld) [#/Vol] 236 10 3/uL 150-450 [facility] RBC Auto (Bld) [#/Vol]Ordere d By: Analisa Bryant on 05-28-2025 RBC (Bld) [#/Vol] 3.77 10 6/uL Low 4.20-5.40 [facility] Serum or plasma anion gap de terminationOrdered By: Analisa Bryant on 05-28-2025 Anion gap [Moles/Vol] 10.8 mmol/L [facility] Basophils Auto (Bld) [#/Vol] Ordered By: Cheng Aviles on 05-11-2025 Basophils (Bld) [#/Vol] 0.1 10 3/uL 0.0-0.1 [facility] Basophils/100 WBC Auto (Bld) Ordered By: Cheng Aviles on 05-11-2025 Basophils/100 WBC (Bld) 1.2 % 0.2-2.0 [facility] Eosinophils/100 WBC Auto (Bl d)Ordered By: Cheng Aviles on 05-11-2025 Eosinophils/100 WBC (Bld) 2.7 % 0.9-7.0 [facility] Erythrocyte distribution wid th Auto (RBC) [Ratio]Ordered By: Cheng Aviles on 05-11-2025 Erythrocyte distribution width (RBC) [Ratio] 15.7 % High 11.0-15.0 [facility] Estimated glomerular filtrat ion rate (GFR) non- AmericanOrdered By: Rica Kaplan on 05-11-2025 GFR/1.73 sq M.predicted among non-blacks MDRD (S/P/Bld) [Vol rate/Area] 36 mL/min/{1.73_m2} Low >=60 mL/min/1.73 m 2 [facility] Hematocrit Auto (Bld) [Volum e fraction]Ordered By: Cheng Aviles on 05-11-2025 Hematocrit (Bld) [Volume fraction] 34.2 % Low 36.0-48.0 [facility] Hemoglobin [Mass/volume] in BloodOrdered By: Cheng Aviles on 05-11-2025 Hemoglobin (Bld) [Mass/Vol] 10.9 g/dL Low 12.0-16.0 [facility] Laboratory - Chemistry and C hemistry - challengeOrdered By: Rica Kaplan on 05-11-2025 Calcium [Mass/Vol] 8.6 mg/dL 8.5-10.1 [facility] Chloride [Moles/Vol] 107 mmol/L 98-107 [facility] CO2 [Moles/Vol] 27.7 mmol/L 21.0-32.[address] [facility] Creatinine [Mass/Vol] 1.40 mg/dL High 0.55-1.02 [facility] GFR/1.73 sq M.predicted MDRD (S/P/Bld) [Vol rate/Area] 44 mL/min/{1.73_m2} Low >=60 mL/min/1.73 m 2 [facility] Glucose [Mass/Vol] 93 mg/dL 74-106 [facility] Potassium [Moles/Vol] 4.2 mmol/L 3.5-5.1 [facility] Sodium [Moles/Vol] 144 mmol/L 136-145 [facility] Urea nitrogen [Mass/Vol] 34.0 mg/dL High 7.0-18.0 [facility] Urea nitrogen/Creatinine [Mass ratio] 24.3 mg/mg [facility] Laboratory - Hematology and Cell countsOrdered By: Cheng Aviles on 05-11-2025 Immature granulocytes/100 WBC (Bld) 0.4 % 0.0-0.5 [facility] Leukocytes [#/volume] correc gali for nucleated erythrocytes in Blood by Automated counOrdered By: Cheng Aviles on 05-11-2025 WBC corrected for nucl RBC Auto (Bld) [#/Vol] 8.5 10 3/uL 4.0-11.0 [facility] Lymphocytes Auto (Bld) [#/Vo l]Ordered By: Cheng Aviles on 05-11-2025 Lymphocytes (Bld) [#/Vol] 1.4 10 3/uL 1.2-3.8 [facility] Lymphocytes/100 WBC Auto (Bl d)Ordered By: Cheng Aviles on 05-11-2025 Lymphocytes/100 WBC (Bld) 16.0 % Low 20.5-60.0 [facility] MCH Auto (RBC) [Entitic mass ]Ordered By: Cheng Aviles on 05-11-2025 MCH (RBC) [Entitic mass] 28.5 pg 26.7-34.0 [facility] MCHC Auto (RBC) [Mass/Vol]Or dered By: Cheng Aviles on 05-11-2025 MCHC (RBC) [Mass/Vol] 31.9 g/dL 29.9-35.2 [facility] [facility] MCV Auto (RBC) [Entitic vol] Ordered By: Cheng Aviles on 05-11-2025 MCV (RBC) [Entitic vol] 89.5 fL 81.0-99.0 [facility] Monocytes Auto (Bld) [#/Vol] Ordered By: Cheng Aviles on 05-11-2025 Monocytes (Bld) [#/Vol] 0.6 10 3/uL 0.3-0.8 [facility] Monocytes/100 WBC Auto (Bld) Ordered By: Cheng Aviles on 05-11-2025 Monocytes/100 WBC (Bld) 7.5 % 1.7-12.0 [facility] Neutrophils Auto (Bld) [#/Vo l]Ordered By: Cheng Aviles on 05-11-2025 Neutrophils (Bld) [#/Vol] 6.1 10 3/uL 1.4-6.5 [facility] Neutrophils/100 WBC Auto (Bl d)Ordered By: Cheng Aviles on 05-11-2025 Neutrophils/100 WBC (Bld) 72.2 % 43.0-75.0 [facility] No Panel InformationOrdered By: Cheng Aviles on 05-11-2025 Eosinophils # (Auto) 0.2 10 3/uL 0.0-0.7 [facility] Immature Granulocyte # (Auto) 0.03 10 3/uL 0.00-0.03 [facility] 0.2 10 3/uL 0.0-0.7 [facility] 0.03 10 3/uL 0.00-0.03 [facility] 0.4 % 0.0-0.5 [facility] No Panel InformationOrdered By: Riac Kaplan on 05-11-2025 24.3 [facility] 34.0 mg/dL High 7.0-18.0 [facility] 8.6 mg/dL 8.5-10.1 [facility] 107 mmol/L 98-107 [facility] 27.7 mmol/L 21.0-32.0 [facility] 1.40 mg/dL High 0.55-1.02 [facility] 44 Low >=60 mL/min/1.73 m 2 [facility] 93 mg/dL 74-106 [facility] 4.2 mmol/L 3.5-5.1 [facility] 144 mmol/L 136-145 [facility] Platelet mean volume Auto (B ld) [Entitic vol]Ordered By: Cheng Aviles on 05-11-2025 Platelet mean volume (Bld) [Entitic vol] 10.0 fL 9.5-13.5 [facility] Platelets Auto (Bld) [#/Vol] Ordered By: Cheng Aviles on 05-11-2025 Platelets (Bld) [#/Vol] 279 10 3/uL 150-450 [facility] RBC Auto (Bld) [#/Vol]Ordere d By: Cheng Aviles on 05-11-2025 RBC (Bld) [#/Vol] 3.82 10 6/uL Low 4.20-5.40 [facility] Serum or plasma anion gap de terminationOrdered By: Rica Kaplan on 05-11-2025 Anion gap [Moles/Vol] 13.5 mmol/L [facility] Telephoneon 05-07-2025 Telephone [id number] Joe Call 1945 F Date Provider Department Center 05/07/2025 TerrellJavedRussellAMANDADESHAWN [facility] Family History Problem Relation Age of Onset Heart disease Mother Heart attack Father Coronary artery disease Other Diabetes Other Polycystic kidney disease Other Family Status - Relation Status Age at Mother Father Sister Brother Other Normal [facility] Office Visiton 04-22-2025 Follow-up visit [id number] Joe Call 1945 F Date Provider Department Center 04/22/2025 RICA DEAN [facility]ARD [facility] Family History Problem Relation Age of Onset Heart disease Mother Heart attack Father Coronary artery disease Other Diabetes Other Polycystic kidney disease Other Family Status - Relation Status Age at Mother Father Sister Brother Other Level of Service:46080 [place] OFFICE/OUTPATIENT ESTABLISHED HIGH MDM 40 MIN Normal [facility] Alanine aminotransferase [En zymatic activity/volume] in Serum or PlasmaOrdered By: Jorge Calix on 03-12-2025 ALT [Catalytic activity/Vol] Alanine aminotransferase [Enzymatic activity/volume] in Serum or Plasma 7-52 [facility] ALT [Catalytic activity/Vol] 9 U/L Normal 52 [facility] Comment on above: Performed By: #### M , BMP #### [address] Albumin [Mass/volume] in Ser um or Plasma by Bromocresol green (BCG) dye binding methoOrdered By: Jorge Calix on 03-12-2025 Albumin BCG dye [Mass/Vol] Albumin [Mass/volume] in Serum or Plasma by Bromocresol green (BCG) dye binding metho Low 3.5-5.7 [facility] Albumin BCG dye [Mass/Vol] 3.0 g/dL Low 3.5-5.7 [facility] Alkaline phosphatase [Enzyma tic activity/volume] in Serum or PlasmaOrdered By: Jorge Calix on 03-12-2025 ALP [Catalytic activity/Vol] Alkaline phosphatase [Enzymatic activity/volume] in Serum or Plasma 34-104 [facility] ALP [Catalytic activity/Vol] 104 U/L Normal 34-104 [facility] Comment on above: Performed By: #### M G, BMP #### [facility] [address] Appearance of UrineOrdered B y: Jorge Calix on 03-12-2025 Appearance (U) Urine appearance Clear [facility] Appearance (U) Clear Normal Clear [facility] Comment on above: Order Comment: Name Collection Type:: Other Performed By: #### G MICK #### Point of Care testing , Aspartate aminotransferase [ Enzymatic activity/volume] in Serum or PlasmaOrdered By: Jorge Calix on 03-12-2025 AST [Catalytic activity/Vol] Aspartate aminotransferase [Enzymatic activity/volume] in Serum or Plasma Low 13-39 [facility] AST [Catalytic activity/Vol] 11 U/L Low -39 [facility] Comment on above: Performed By: #### M Bela, BMP #### [facility] [address] BNP ser/plasOrdered By: Steven Calix on 03-12-2025 Natriuretic peptide B (Bld) [Mass/Vol] 773.0 pg/mL High 5-100 [facility] Comment on above: Result Comment: PERF ORMED BY: [place] [address] PATHOLOGIST SPEECH COMMUNICATION INSTRUCTOR MAY HYDE M.D. Performed By: #### M Bela, BMP #### [facility] [address] Bacteria [Presence] in Urine by AutomatedOrdered By: Jorge Calix on 03-12-2025 Bacteria Auto Ql (U) Bacteria [Presence] in Urine by Automated High None Seen [facility] Bacteria Auto Ql (U) 2+ [HPF] High None Seen [facility] Basic Metabolic Panelon Creatinine Clr Calc Pharmacy 35.31 Normal [facility] Comment on above: Performed By: #### M G, BMP #### [facility] [address] Estimated GFR 31.389 mL/Min Normal [facility] Comment on above: Performed By: #### M G, BMP #### [facility] [address] [place] [address] [place] Basophils Auto (Bld) [#/Vol] Ordered By: Jorge Calix on 03-12-2025 Basophils (Bld) [#/Vol] Automated basophil count 0.0-0.2 [facility] Basophils [#/volume] in Bloo d by Automated countOrdered By: Jorge Calix on 03-12-2025 Basophils (Bld) [#/Vol] 0.1 10*3/uL Normal 0.0-0.2 [facility] Comment on above: Result Comment: PERF ORMED BY: [place] [address] PATHOLOGIST SPEECH COMMUNICATION INSTRUCTOR MAY HYDE M.D. Performed By: #### Vandana Cramer, BMP #### [address] Basophils/100 WBC Auto (Bld) Ordered By: Jorge Calix on 03-12-2025 Basophils/100 WBC (Bld) Automated basophil % . [facility] Basophils/100 leukocytes in Blood by Automated countOrdered By: Jorge Calix on 03-12-2025 Basophils/100 WBC (Bld) 0.8 % Normal . [facility] Comment on above: Performed By: #### Vandana Cramer, BMP #### [address] Bilirubin Test strip Ql (U)O rdered By: Jorge Calix on 03-12-2025 Bilirubin Ql (U) Bilirubin.total [Presence] in Urine by Test strip Negative [facility] Bilirubin Ql (U) Negative Negative [facility] Bilirubin.direct [Mass/volum e] in Serum or PlasmaOrdered By: Jorge Calix on 03-12-2025 Bilirubin.direct [Mass/Vol] Bilirubin.direct [Mass/volume] in Serum or Plasma 0.03-0.18 [facility] Bilirubin.direct [Mass/Vol] 0.10 mg/dL 0.03-0.18 [facility] Bilirubin.total [Mass/volume ] in Serum or PlasmaOrdered By: Jorge Calix on 03-12-2025 Bilirubin [Mass/Vol] Bilirubin.total [Mass/volume] in Serum or Plasma 0.3-1.0 [facility] Bilirubin [Mass/Vol] 0.5 mg/dL Normal 0.3-1.0 [facility] Comment on above: Performed By: #### M Bela, BMP #### [facility] [address] Calcium [Mass/volume] in Ser um or PlasmaOrdered By: Jorge Calix on 03-12-2025 Calcium [Mass/Vol] Calcium [Mass/volume ] in Serum or Plasma Low 8.6-10.3 [facility] Calcium [Mass/Vol] 8.3 mg/dL Low 8.6-10.3 [facility] Comment on above: Performed By: #### M Bela, BMP #### [facility] [address] Capillary blood glucose wander urement by glucometer (mass/volume)Ordered By: Jorge Calix on 03-12-2025 Glucose [Mass/Vol] 364 mg/dL Normal [facility] Comment on above: Random Glucose Refer ence Range is dependent on time and content of last meal. Glucose of more than 200 mg/dL in a nonstressed, ambulatory subject supports the diagnosis of Diabetes Mellitus. Result Comment: [facility] Glucose Reference Range is dependent on time and content of last meal. Glucose of more than 200 mg/dL in a nonstressed, ambulatory subject supports the diagnosis of Diabetes Mellitus. PERFORMED BY: [place] [address] PATHOLOGIST SPEECH COMMUNICATION INSTRUCTOR MAY HYDE M.D. Performed By: #### A 1C [facility] #### [facility] [address] [place] [address] [place] Carbon dioxide, total [Moles /volume] in Serum or PlasmaOrdered By: Jorge Calix on 03-12-2025 CO2 [Moles/Vol] Carbon dioxide, tota l [Moles/volume] in Serum or Plasma High 21.0-31.0 [facility] CO2 [Moles/Vol] 37.0 mmol/L High 21.0-31.[address] [facility] Comment on above: Performed By: #### Vandana Cramer, BMP #### [place] [address] [place] Chloride [Moles/volume] in S oziel or PlasmaOrdered By: Jorge Calix on 03-12-2025 Chloride [Moles/Vol] Chloride [Moles/vol ume] in Serum or Plasma Low 98-107 [facility] Chloride [Moles/Vol] 89 mmol/L Low 98-107 [facility] Comment on above: Performed By: #### Vandana Cramer, BMP #### [place] [address] [place] Color Auto (U)Ordered By: Amilcar Calix on 03-12-2025 Color (U) Color of Urine by Auto Yellow [facility] Color of Urine by AutoOrdere d By: Jorge Calix on 03-12-2025 Color (U) Light-yellow Normal Yellow [facility] Comment on above: Order Comment: Name Collection Type:: Other Performed By: #### G LULS #### Point of Care testing , Complete Blood Count Auto Di ffon 03-12-2025 Mean Corpuscular HGB Conc 33.3 g/dL Normal 32.0-35.0 [facility] Comment on above: Performed By: #### Vandana Cramer, BMP #### [place] [address] [place] Monocytes/100 WBC (Bld) 18.66 % Normal 0.00-20.00 [facility] Comment on above: Performed By: #### Vandana Cramer, BMP #### [facility] [address] [place] [address] [place] NRBC% 0.1 /100{WBC} Normal 0-0.5 [facility] Comment on above: Performed By: #### Vandana Cramer, BMP #### [place] [address] [place] Creatine kinase [Enzymatic a ctivity/volume] in Serum or PlasmaOrdered By: Jorge Calix on 03-12-2025 CK [Catalytic activity/Vol] Creatine kinase [Enzymatic activity/volume] in Serum or Plasma [facility] CK [Catalytic activity/Vol] 57 U/L Normal [facility] Comment on above: Performed By: #### M Bela, BMP #### [facility] [address] Creatinine [Mass/volume] in Serum or PlasmaOrdered By: Jorge Calix on 03-12-2025 Creatinine [Mass/Vol] Creatinine [Mass/v olume] in Serum or Plasma High 0.60-1.20 [facility] Creatinine [Mass/Vol] 1.66 mg/dL High 0.60-1.20 [facility] Comment on above: Performed By: #### M G, BMP #### [facility] [address] Dipstick and Microscopicon 0 03-12-2025 Bacteria,Urine 2+ High None Seen [facility] Comment on above: Order Comment: Name Collection Type:: Other Performed By: #### G LULS #### Point of Care testing , Bilirubin,Urine Negative Normal Negative [facility] Comment on above: Order Comment: Name Collection Type:: Other Performed By: #### G LULS #### Point of Care testing , Glucose Ql (U) >= High Normal [facility] Comment on above: Order Comment: Name Collection Type:: Other Performed By: #### G LULS #### Point of Care testing , Hyaline Casts,Urine 0-8 Normal 0-8 [facility] Comment on above: Order Comment: Name Collection Type:: Other Result Comment: PERF ORMED BY: [facility] [address] [facility] [place] [address] PATHOLOGIST SPEECH COMMUNICATION INSTRUCTOR MAY HYDE M.D. Performed By: #### G LULS #### Point of Care testing , Nitrite,Urine Negative Normal Negative [facility] Comment on above: Order Comment: Name Collection Type:: Other Performed By: #### G LULS #### Point of Care testing , Occult Blood,Urine Negative Normal Negative [facility] Comment on above: Order Comment: Name Collection Type:: Other Result Comment: PERF ORMED BY: [place] [address] PATHOLOGIST SPEECH COMMUNICATION INSTRUCTOR MAY HYDE M.D. Performed By: #### G LULS #### Point of Care testing , RBC,Urine 1-2 Normal 0-4 [facility] Comment on above: Order Comment: Name Collection Type:: Other Performed By: #### G LULS #### Point of Care testing , Specificy [place],Urine 1.012 Normal 1.001-1.030 [facility] Comment on above: Order Comment: Name Collection Type:: Other Performed By: #### G LULS #### Point of Care testing , Squamous Epithelial Cell,Urine 1-2 Normal 0-2 [facility] Comment on above: Order Comment: Name Collection Type:: Other Performed By: #### G LULS #### Point of Care testing , Urobilinogen,Urine Normal Normal Normal [facility] Comment on above: Order Comment: Name Collection Type:: Other Performed By: #### G LULS #### Point of Care testing , WBC,Urine 3-4 Normal 0-4 [facility] Comment on above: Order Comment: Name Collection Type:: Other Performed By: #### G LULS #### Point of Care testing , ECG 12 lead ECGon 03-12-2025 ECG 12 lead ECG [facility] Main [place] [id number] Electrocardiograph Report Signed Patient: Joe Call MR#: [id number] 0 : 1945 Acct:[id number] Age/Sex: 79 / F ADM Date: 03/12/25 Loc: ER Room: Type: [facility] ER Attending Dr: Ordering Provider: Jorge Calix [...] 30 bpm Confirmed by Jorge Calix DO ([id number]) on 03/12/2025 6:57:40 PM Referred By: Electronically Signed By: Jorge Calix DO Transcribed By: MUS Signed By Jorge Calix DO 5 1857 Normal [facility] Eosinophils Auto (Bld) [#/Vo l]Ordered By: Jorge Calix on 03-12-2025 Eosinophils (Bld) [#/Vol] Automated eosinophil count 0.0-0.45 [facility] Eosinophils [#/volume] in Bl ood by Automated countOrdered By: Jorge Calix on 03-12-2025 Eosinophils (Bld) [#/Vol] 0.1 10*3/uL Normal 0.0-0.45 [facility] Comment on above: Performed By: #### Vandana Cramer, BMP #### [facility] [address] Eosinophils/100 WBC Auto (Bl d)Ordered By: Jorge Calix on 03-12-2025 Eosinophils/100 WBC (Bld) Automated eosinophil % . [facility] Eosinophils/100 leukocytes i n Blood by Automated countOrdered By: Jorge Calix on 03-12-2025 Eosinophils/100 WBC (Bld) 1.0 % Normal . [facility] Comment on above: Performed By: #### Vandana Cramer, BMP #### [facility] [address] Epithelial cells.squamous [# /area] in Urine sediment by Automated countOrdered By: Jorge Calix on 03-12-2025 Epithelial cells.squamous Auto (Urine sed) [#/Area] Epithelial cells.squamous [#/area] in Urine sediment by Automated count 0-2 [facility] Epithelial cells.squamous Auto (Urine sed) [#/Area] 1-2 [HPF] 0-2 [facility] Erythrocyte distribution wid th Auto (RBC) [Ratio]Ordered By: Jorge Calix on 03-12-2025 Erythrocyte distribution width (RBC) [Ratio] Erythrocyte distribution width [Ratio] by Automated count 11.9-15.3 [facility] Erythrocyte distribution wid th [Ratio] by Automated countOrdered By: Jorge Calix on 03-12-2025 Erythrocyte distribution width (RBC) [Ratio] 14.5 % Normal 11.9-15.3 [facility] Comment on above: Performed By: #### Vandana Cramer, KAREN #### [facility] [address] Erythrocytes [#/area] in Uri ne sediment by Automated countOrdered By: Jorge Calix on 03-12-2025 RBC Auto (Urine sed) [#/Area] Erythrocytes [#/area] in Urine sediment by Automated count 0-4 [facility] RBC Auto (Urine sed) [#/Area] 1-2 [HPF] 0-4 [facility] Erythrocytes [#/volume] in B lood by Automated countOrdered By: Jorge Calix on 03-12-2025 RBC (Bld) [#/Vol] 4.33 10*6/uL Normal 3.60-5.00 [facility] Comment on above: Performed By: #### Vandana Cramer, KAREN #### [facility] [address] [place] [address] Globulin Calc (S) [Mass/Vol] Ordered By: Jorge Calix on 03-12-2025 Globulin (S) [Mass/Vol] Serum globulin measurement by calculation (mass/volume) [facility] Glucose Glucometer (BldC) [M ass/Vol]Ordered By: Jorge Calix on 03-12-2025 Glucose [Mass/Vol] Capillary blood gluc ose measurement by glucometer (mass/volume) [facility] Glucose [Mass/volume] in Ser um or PlasmaOrdered By: Jorge Calix on 03-12-2025 Glucose [Mass/Vol] Glucose [Mass/volume ] in Serum or Plasma Critically high 70-100 [facility] Glucose [Mass/Vol] 520 mg/dL Off scale high 70-100 [facility] Comment on above: Critical Result Call ed [...] Performed By: #### Vandana Cramer, BMP #### [facility] [address] [place] [address] Glucose [Mass/volume] in Uri ne by Test stripOrdered By: Jorge Calix on 03-12-2025 Glucose Test strip (U) [Mass/Vol] Glucose [Mass/volume] in Urine by Test strip High Normal [facility] Glucose Test strip (U) [Mass/Vol] >=1000 mg/dL High Normal [facility] Hematocrit Auto (Bld) [Volum e fraction]Ordered By: Jorge Calix on 03-12-2025 Hematocrit (Bld) [Volume fraction] Hematocrit [Volume Fraction] of Blood by Automated count 34.0-46.4 [facility] Hematocrit [Volume Fraction] of Blood by Automated countOrdered By: Jorge Calix on 03-12-2025 Hematocrit (Bld) [Volume fraction] 38.3 % Normal 34.0-46.4 [facility] Comment on above: Performed By: #### Vandana Cramer, BMP #### [facility] [address] [place] [address] Hemoglobin Test strip Ql (U) Ordered By: Jorge Calix on 03-12-2025 Hemoglobin Ql (U) Hemoglobin [Presence ] in Urine by Test strip Negative [facility] Hemoglobin Ql (U) Negative Negative [facility] Hemoglobin [Mass/volume] in BloodOrdered By: Jorge Calix on 03-12-2025 Hemoglobin (Bld) [Mass/Vol] Hemoglobin [Mass/volume] in Blood 11.8-15.4 [facility] Hemoglobin (Bld) [Mass/Vol] 12.8 g/dL Normal 11.8-15.4 [facility] Comment on above: Performed By: #### Vandana Cramer, BMP #### [facility] [address] Hepatic Panelon 03-12-2025 Albumin [Mass/Vol] 3.0 g/dL Low 3.5-5.7 [facility] Comment on above: Performed By: #### Vandana Cramer, BMP #### [facility] [address] Bilirubin,Indirect 0.4 mg/dL Normal [facility] Comment on above: Performed By: #### Vandana Cramer, BMP #### [facility] [address] Bilirubin.indirect [Mass/Vol] 0.10 mg/dL Normal 0.03-0.18 [facility] Comment on above: Performed By: #### Vandana Cramer, BMP #### [facility] [address] Hyaline casts [#/area] in Ur ine sediment by Automated countOrdered By: Jorge Calix on 03-12-2025 Hyaline casts Auto (Urine sed) [#/Area] Hyaline casts [#/area] in Urine sediment by Automated count 0-8 [facility] Hyaline casts Auto (Urine sed) [#/Area] 0-8 [LPF] 0-8 [facility] INR in Platelet poor plasma by Coagulation assayOrdered By: Jorge Calix on 03-12-2025 INR Coag (PPP) [Relative time] INR in Platelet poor plasma by Coagulation assay [facility] INR Coag (PPP) [Relative time] 1.7 {INR} Normal [facility] Comment on above: INR Therapeutic Rang [...] heart valves: 3 - 4.5 PERFORMED BY: [place] [address] PATHOLOGIST SPEECH COMMUNICATION INSTRUCTOR MAY HYDE M.D. Performed By: #### M G, BMP #### [address] Ketones Test strip Ql (U)Ord ered By: Jorge Calix on 03-12-2025 Ketones Ql (U) Ketones [Presence] i n Urine by Test strip Negative [facility] Ketones [Presence] in Urine by Test stripOrdered By: Jorge Calix on 03-12-2025 Ketones Ql (U) Negative Normal Negative [facility] Comment on above: Order Comment: Name Collection Type:: Other Performed By: #### G LULS #### Point of Care testing , Leukocyte esterase [Presence ] in Urine by Test stripOrdered By: Jorge Calix on 03-12-2025 Leukocyte esterase Test strip Ql (U) Leukocyte esterase [Presence] in Urine by Test strip Negative [facility] Leukocyte esterase Test strip Ql (U) Negative Normal Negative [facility] Comment on above: Order Comment: Name Collection Type:: Other Performed By: #### G LULS #### Point of Care testing , Leukocytes [#/area] in Urine sediment by Automated countOrdered By: Jorge Calix on 03-12-2025 WBC Auto (Urine sed) [#/Area] Leukocytes [#/area] in Urine sediment by Automated count 0-4 [facility] WBC Auto (Urine sed) [#/Area] 3-4 [HPF] 0-4 [facility] Leukocytes [#/volume] correc gali for nucleated erythrocytes in Blood by Automated counOrdered By: Jorge Calix on 03-12-2025 WBC corrected for nucl RBC Auto (Bld) [#/Vol] Leukocytes [#/volume] corrected for nucleated erythrocytes in Blood by Automated coun 3.8-11.6 [facility] WBC corrected for nucl RBC Auto (Bld) [#/Vol] 9.0 10*3/uL 3.8-11.6 [facility] Leukocytes [#/volume] in Blo od by Automated countOrdered By: Jorge Calix on 03-12-2025 WBC (Bld) [#/Vol] 9.0 10*3/uL Normal 3.8-11.6 [facility] Comment on above: Performed By: #### Vandana Cramer, BMP #### [facility] [address] [place] [address] Lymphocytes Auto (Bld) [#/Vo l]Ordered By: Jorge Calix on 03-12-2025 Lymphocytes (Bld) [#/Vol] Lymphocytes [#/volume] in Blood by Automated count 1.00-4.8 [facility] Lymphocytes [#/volume] in Bl ood by Automated countOrdered By: Jorge Calix on 03-12-2025 Lymphocytes (Bld) [#/Vol] 1.3 10*3/uL Normal 1.00-4.8 [facility] Comment on above: Performed By: #### Vandana Cramer, BMP #### [facility] [address] [place] [address] Lymphocytes/100 WBC Auto (Bl d)Ordered By: Jorge Calix on 03-12-2025 Lymphocytes/100 WBC (Bld) Lymphocytes/100 leukocytes in Blood by Automated count . [facility] Lymphocytes/100 leukocytes i n Blood by Automated countOrdered By: Jorge Calix on 03-12-2025 Lymphocytes/100 WBC (Bld) 14.2 % Normal . [facility] Comment on above: Performed By: #### Vandana Cramer, BMP #### [facility] [address] [place] [address] MCH Auto (RBC) [Entitic mass ]Ordered By: Jorge Calix on 03-12-2025 MCH (RBC) [Entitic mass] MCH [Entitic mass] by Automated count 24.7-34.3 [facility] MCH [Entitic mass] by Automa gali countOrdered By: Jorge Calix on 03-12-2025 MCH (RBC) [Entitic mass] 29.5 pg Normal 24.7-34.3 [facility] Comment on above: Performed By: #### Vandana Cramer, BMP #### [facility] [address] MCHC Auto (RBC) [Mass/Vol]Or dered By: Jorge Calix on 03-12-2025 MCHC (RBC) [Mass/Vol] MCHC [Mass/volume] by Automated count 32.0-35.0 [facility] MCHC (RBC) [Mass/Vol] 33.3 g/dL 32.0-35.0 [facility] MCV Auto (RBC) [Entitic vol] Ordered By: Jorge Calix on 03-12-2025 MCV (RBC) [Entitic vol] MCV [Entitic volume] by Automated count 80-100 [facility] MCV [Entitic volume] by Auto mated countOrdered By: Jorge Calix on 03-12-2025 MCV (RBC) [Entitic vol] 88.4 fL Normal 80-100 [facility] Comment on above: Performed By: #### Vandana Cramer, BMP #### [address] Magnesium [Mass/volume] in S oziel or PlasmaOrdered By: Jorge Calix on 03-12-2025 Magnesium [Mass/Vol] Magnesium [Mass/vol ume] in Serum or Plasma Low 1.9-2.7 [facility] Magnesium [Mass/Vol] 1.1 mg/dL Low 1.9-2.7 [facility] Comment on above: Result Comment: PERF ORMED BY: [address] [place] [address] PATHOLOGIST SPEECH COMMUNICATION INSTRUCTOR MAY HYDE M.D. Performed By: #### Vandana Cramer, BMP #### [facility] [address] [place] [address] [place] Monocyte distribution width [Entitic volume] in Blood by AutomatedOrdered By: Jorge Calix on 03-12-2025 Monocyte distribution width Auto (Bld) [Entitic vol] Monocyte distribution width [Entitic volume] in Blood by Automated 0.00-20.00 [facility] Monocyte distribution width Auto (Bld) [Entitic vol] 18.66 % 0.00-20.00 [facility] Monocytes Auto (Bld) [#/Vol] Ordered By: Jorge Calix on 03-12-2025 Monocytes (Bld) [#/Vol] Automated blood monocyte count 0.0-0.8 [facility] Monocytes [#/volume] in Bloo d by Automated countOrdered By: Jorge Calix on 03-12-2025 Monocytes (Bld) [#/Vol] 0.5 10*3/uL Normal 0.0-0.8 [facility] Comment on above: Performed By: #### Vandana Cramer, BMP #### [facility] [address] [place] [address] Monocytes/100 WBC Auto (Bld) Ordered By: Jorge Calix on 03-12-2025 Monocytes/100 WBC (Bld) Automated monocyte % . [facility] Monocytes/100 leukocytes in Blood by Automated countOrdered By: Jorge Calix on 03-12-2025 Monocytes/100 WBC (Bld) 5.9 % Normal . [facility] Comment on above: Performed By: #### M G, BMP #### [facility] [address] [place] [address] Natriuretic peptide B [Mass/ Vol]Ordered By: Jorge Calix on 03-12-2025 Natriuretic peptide B (Bld) [Mass/Vol] BNP ser/plas High 5-100 [facility] Neutrophils Auto (Bld) [#/Vo l]Ordered By: Jorge Calix on 03-12-2025 Neutrophils (Bld) [#/Vol] Neutrophils [#/volume] in Blood by Automated count 1.8-7.7 [facility] Neutrophils [#/volume] in Bl ood by Automated countOrdered By: Jorge Calix on 03-12-2025 Neutrophils (Bld) [#/Vol] 7.0 10*3/uL Normal 1.8-7.7 [facility] Comment on above: Performed By: #### M G, BMP #### [facility] [address] [place] [id number] [place] Neutrophils/100 WBC Auto (Bl d)Ordered By: Jorge Calix on 03-12-2025 Neutrophils/100 WBC (Bld) Automated neutrophil % . [facility] Neutrophils/100 leukocytes i n Blood by Automated countOrdered By: Jorge Calix on 03-12-2025 Neutrophils/100 WBC (Bld) 78.1 % Normal . [facility] Comment on above: Performed By: #### M G, BMP #### [facility] [address] [place] [id number] [facility] Nitrite Test strip Ql (U)Ord ered By: Jorge Calix on 03-12-2025 Nitrite Ql (U) Nitrite [Presence] i n Urine by Test strip Negative [facility] Nitrite Ql (U) Negative Negative [facility] No Panel InformationOrdered By: Jorge Calix on 03-12-2025 Estimated GFR (CKD-EPI) 31.389 mL/Min [facility]acy Creatinine Clearance (Chem 35.31 [facility] 31.389 mL/Min [facility] 35.31 [facility] Nucleated erythrocytes [Pres ence] in Blood by Automated countOrdered By: Jorge Calix on 03-12-2025 Nucleated RBC Auto Ql (Bld) Nucleated erythrocytes [Presence] in Blood by Automated count 0-0.5 [facility] Nucleated RBC Auto Ql (Bld) 0.1 /100{WBC} 0-0.5 [facility] Platelet mean volume Auto (B ld) [Entitic vol]Ordered By: Jorge Calix on 03-12-2025 Platelet mean volume (Bld) [Entitic vol] Platelet mean volume [Entitic volume] in Blood by Automated count 6.3-10.7 [facility] Platelet mean volume [Entiti c volume] in Blood by Automated countOrdered By: Jorge Calix on 03-12-2025 Platelet mean volume (Bld) [Entitic vol] 9.6 fL Normal 6.3-10.7 [facility] Comment on above: Performed By: #### Vandana Cramer, BMP #### [facility] [address] Platelets Auto (Bld) [#/Vol] Ordered By: Jorge Calix on 03-12-2025 Platelets (Bld) [#/Vol] Platelets [#/volume] in Blood by Automated count 150-450 [facility] Platelets [#/volume] in Bloo d by Automated countOrdered By: Jorge Calix on 03-12-2025 Platelets (Bld) [#/Vol] 194 10*3/uL Normal 150-450 [facility] Comment on above: Performed By: #### Vandana Cramer, BMP #### [place] [address] [place] Potassium [Moles/volume] in Serum or PlasmaOrdered By: Jorge Calix on 03-12-2025 Potassium [Moles/Vol] Potassium [Moles/v olume] in Serum or Plasma 3.5-5.1 [facility] Potassium [Moles/Vol] 4.0 mmol/L Normal 3.5-5.1 [facility] Comment on above: Performed By: #### Vandana Cramer, BMP #### [address] Protein Test strip (U) [Mass /Vol]Ordered By: Jorge Calix on 03-12-2025 Protein (U) [Mass/Vol] Protein [Mass/vol ume] in Urine by Test strip High Negative [facility] Protein [Mass/volume] in Ser um or PlasmaOrdered By: Jorge Calix on 03-12-2025 Protein [Mass/Vol] Protein [Mass/volume ] in Serum or Plasma 6.4-8.9 [facility] Protein [Mass/Vol] 7.0 g/dL Normal 6.4-8.9 [facility] Comment on above: Performed By: #### Vandana Cramer, BMP #### [address] Protein [Mass/volume] in Uri ne by Test stripOrdered By: Jorge Calix on 03-12-2025 Protein (U) [Mass/Vol] 200 mg/dL High Negative [facility] Comment on above: Order Comment: Name Collection Type:: Other Performed By: #### G MICK #### Point of Care testing , Prothrombin time (PT)Ordered By: Jorge Calix on 03-12-2025 PT Coag (PPP) [Time] Prothrombin time (PT) High 9.0- 12.9 [facility] PT Coag (PPP) [Time] 19.3 s High 9.0-12.9 [facility] Comment on above: A hematocrit value g reater than 55% may lead to inaccurate results in coagulation testing. Patients having hematocrit values >55% require a special collection tube for coagulation studies. Please contact the laboratory at [phone] for redraw instructions. Result Comment: A he matocrit value greater than 55% may lead to inaccurate results in coagulation testing. Patients having hematocrit values >55% require a special collection tube for coagulation studies. Please contact the laboratory at [phone] for redraw instructions. Performed By: #### M Bela, BMP #### [facility] [address] [place] [address] RBC Auto (Bld) [#/Vol]Ordere d By: Jorge Calix on 03-12-2025 RBC (Bld) [#/Vol] Erythrocytes [#/volu me] in Blood by Automated count 3.60-5.00 [facility] Serum globulin measurement b y calculation (mass/volume)Ordered By: Jorge Calix on 03-12-2025 Globulin (S) [Mass/Vol] 4.0 g/dL Normal [facility] Comment on above: Performed By: #### M Bela, BMP #### [facility] [address] [place] [address] Serum or plasma albumin/glob ulin mass ratioOrdered By: Jorge Calix on 03-12-2025 Albumin/Globulin [Mass ratio] Serum or plasma albumin/globulin mass ratio [facility] Albumin/Globulin [Mass ratio] 0.8 {ratio} Normal [facility] Comment on above: Performed By: #### M Bela, BMP #### [facility] [address] Serum or plasma anion gap de terminationOrdered By: Jorge Calix on 03-12-2025 Anion gap [Moles/Vol] Serum or plasma an ion gap determination 6.0-15.0 [facility] Anion gap [Moles/Vol] 12.0 mmol/L Normal 6.0-15.0 [facility] Comment on above: Performed By: #### Vandana Cramer, BMP #### [facility] [address] [place] [address] Serum or plasma non-glucuron idated bilirubin measurement (mass/volume)Ordered By: Jorge Calix on 03-12-2025 Bilirubin.indirect [Mass/Vol] Serum or plasma non-glucuronidated bilirubin measurement (mass/volume) [facility] Bilirubin.indirect [Mass/Vol] 0.4 mg/dL [facility] Sodium [Moles/volume] in Ser um or PlasmaOrdered By: Jorge Calix on 03-12-2025 Sodium [Moles/Vol] Sodium [Moles/volume ] in Serum or Plasma Low 136-145 [facility] Sodium [Moles/Vol] 134 mmol/L Low 136-145 [facility] Comment on above: Performed By: #### Vandana Cramer, BMP #### [facility] [address] [place] [address] Specific gravity Test strip (U) [Rel density]Ordered By: Jorge aClix on 03-12-2025 Specific gravity (U) [Rel density] Specific gravity of Urine by Test strip 1.001-1.030 [facility] Specific gravity (U) [Rel density] 1.012 1.001-1.030 [facility] Troponin I High Sensitivityo n 03-12-2025 Troponin I High Sensitivity 46 High 0-15 [facility] Comment on above: Result Comment: The Troponin units of report have been changed to meet the Chest Pain Accreditation requirement, element EC5.M1l2. Troponin units are changed from pg/ml to ng/L. Also, the decimal is removed and results are in whole numbers. PERFORMED BY: [place] [address] PATHOLOGIST SPEECH COMMUNICATION INSTRUCTOR MAY HYDE M.D. Performed By: #### Vandana Cramer, BMP #### [address] Troponin I.cardiac [Mass/vol ume] in Serum or Plasma by Detection limit <= 0.01 ng/Ordered By: Jorge Calix on 03-12-2025 Troponin I.cardiac DL <= 0.01 ng/mL [Mass/Vol] Troponin I.cardiac [Mass/volume] in Serum or Plasma by Detection limit <= 0.01 ng/ High [address] [place] [address] Troponin I.cardiac [Mass/vol ume] in Serum or Plasma by Detection limit <= 0.01 ng/mLOrdered By: Jorge Calix on 03-12-2025 Troponin I.cardiac DL <= 0.01 ng/mL [Mass/Vol] 46 ng/L High [address] Comment on above: The Troponin units o f report have been changed to meet the Chest Pain Accreditation requirement, element EC5.M1l2. Troponin units are changed from pg/ml to ng/L. Also, the decimal is removed and results are in whole numbers. Urea nitrogen [Mass/volume] in Serum or PlasmaOrdered By: Jorge Calix on 03-12-2025 Urea nitrogen [Mass/Vol] Urea nitrogen [Mass/volume] in Serum or Plasma [facility] 7-25 [facility] Urea nitrogen [Mass/Vol] 41 mg/dL [address] Comment on above: Performed By: #### Vandana Cramer, BMP #### [address] Urobilinogen Test strip (U) [Mass/Vol]Ordered By: Jorge Calix on 03-12-2025 Urobilinogen (U) [Mass/Vol] Urobilinogen [Mass/volume] in Urine by Test strip Normal [facility] Urobilinogen (U) [Mass/Vol] Normal mg/dL Normal [facility] WBC Auto (Bld) [#/Vol]Ordere d By: Jorge Calix on 03-12-2025 WBC (Bld) [#/Vol] Leukocytes [#/volume ] in Blood by Automated count 3.8-11.6 [facility] X-ray reportOrdered By: Kirit Langston on 03-12-2025 Study report [facility] Work Phone: XR chest 1V portableon 03-12 XR chest 1V portable [facility] [place] [address] [place] [address] XRay Report Signed Patient: Joe Call MR#: [id number] 0 : 1945 Acct:[id number] Age/Sex: 79 / F ADM Date: 03/12/25 Loc: ER Room: Type: [facility] ER Attending Dr: Copies to: Jorge Calix [...] Langston M.D. 03/12/2025 3:34 PM Dictation Location: [place] [address] Transcribed By: [facility] 03/12/25 1534 Dictated By: Vargas Langston MD 03/12/25 1532 Signed By: 03/12/25 1534 Normal [facility] pH Test strip (U)Ordered By: Jorge Calix on 03-12-2025 pH (U) pH of Urine by Test strip 5.0-9.0 [facility] pH of Urine by Test stripOrd ered By: Jorge Calix on 03-12-2025 pH (U) 7.0 [pH] Normal 5.0-9.0 [facility] Comment on above: Order Comment: Name Collection Type:: Other Performed By: #### G LULS #### Point of Care testing , Cholesterol in LDL Calc [Mas s/Vol]on 03-02-2025 Cholesterol in LDL [Mass/Vol] Cholesterol in LDL [Mass/volume] in Serum or Plasma by calculation [facility] Comment on above: <100 mg/dl [id number] 0-129 mg/dl NEAR OR ABOVE [id number] mg/dl BORDERLINE [id number] mg/dl HIGH>190 mg/dl VERY HIGH Cholesterol in LDL [Mass/Vol] 55.6 mg/dL [facility] Comment on above: <100 mg/dl [id number] 0-129 mg/dl NEAR OR ABOVE [id number] mg/dl BORDERLINE [id number] mg/dl HIGH>190 mg/dl VERY HIGH Cholesterol in VLDL Calc [Ma ss/Vol]on 03-02-2025 Cholesterol in VLDL [Mass/Vol] Cholesterol in VLDL [Mass/volume] in Serum or Plasma by calculation [facility] Cholesterol in VLDL [Mass/Vol] 24.4 mg/dL [facility] Erythrocyte distribution wid th Auto (RBC) [Ratio]on 03-02-2025 Erythrocyte distribution width (RBC) [Ratio] Erythrocyte distribution width [Ratio] by Automated count 11.0-15.0 [facility] Erythrocyte distribution width (RBC) [Ratio] 13.4 % 11.0-15.0 [facility] Estimated glomerular filtrat ion rate (GFR) non- Americanon 03-02-2025 GFR/1.73 sq M.predicted among non-blacks MDRD (S/P/Bld) [Vol rate/Area] Estimated glomerular filtration rate (GFR) non- Low >=60 mL/min/1.73 m 2 [facility] GFR/1.73 sq M.predicted among non-blacks MDRD (S/P/Bld) [Vol rate/Area] 27 mL/min/{1.73_m2} Low >=60 mL/min/1.73 m 2 [facility] Hematocrit Auto (Bld) [Volum e fraction]on 03-02-2025 Hematocrit (Bld) [Volume fraction] Hematocrit [Volume Fraction] of Blood by Automated count 36.0-48.0 [facility] Hematocrit (Bld) [Volume fraction] 38.7 % 36.0-48.0 [facility] Hemoglobin [Mass/volume] in Bloodon 03-02-2025 Hemoglobin (Bld) [Mass/Vol] Hemoglobin [Mass/volume] in Blood 12.0-16.0 [facility] Hemoglobin (Bld) [Mass/Vol] 12.9 g/dL 12.0-16.0 [facility] Iron binding capacity [Mass/ volume] in Serum or Plasmaon 03-02-2025 Iron binding capacity [Mass/Vol] Iron binding capacity [Mass/volume] in Serum or Plasma 250.0-450.0 [facility] Iron binding capacity [Mass/Vol] 278.0 ug/dL 250.0-450.0 [facility] Iron saturation [Mass Fracti on] in Serum or Plasmaon 03-02-2025 Iron saturation [Mass fraction] Iron saturation [Mass Fraction] in Serum or Plasma [facility] Iron saturation [Mass fraction] 22.3 % [facility] Laboratory - Chemistry and C hemistry - challengeon 03-02-2025 Albumin [Mass/Vol] 2.4 g/dL Low 3.4-5.0 [facility] Calcium [Mass/Vol] 8.1 mg/dL Low 8.5-10.1 [facility] Chloride [Moles/Vol] 96 mmol/L Low 98-107 [facility] Cholesterol [Mass/Vol] 136 mg/dL <=200 [facility] Cholesterol in HDL [Mass/Vol] 56 mg/dL 40-60 [facility] Comment on above: > or =60 mg/dl - LOW CARDIOVASCULAR RISK<40 mg/dl - HIGH CARDIOVASCULAR RISK CO2 [Moles/Vol] 31.2 mmol/L 21.0-32.[address] [facility] Creatinine [Mass/Vol] 1.83 mg/dL High 0.55-1.02 [facility] Ferritin [Mass/Vol] 114.0 ng/mL 8.0-252.0 [facility] GFR/1.73 sq M.predicted MDRD (S/P/Bld) [Vol rate/Area] 32 mL/min/{1.73_m2} Low >=60 mL/min/1.73 m 2 [facility] Glucose [Mass/Vol] 337 mg/dL High 74-106 [facility] Iron [Mass/Vol] 62.0 ug/dL 50.0-170.0 [facility] Magnesium [Mass/Vol] 1.0 mg/dL Low 1.8-2.4 [facility] Natriuretic peptide B (Bld) [Mass/Vol] 4236.0 pg/mL Critically high <=1800.0 [facility] Comment on above: RESULTS CALLED TO AN BRYANNA ACUNA Potassium [Moles/Vol] 3.6 mmol/L 3.5-5.1 [facility] Sodium [Moles/Vol] 137 mmol/L 136-145 [facility] Triglyceride [Mass/Vol] 122 mg/dL <=150 [facility] Urate [Mass/Vol] 8.1 mg/dL High 2.6-6.[address] [facility] Urea nitrogen [Mass/Vol] 53.0 mg/dL High 7.0-18.0 [facility] Urea nitrogen/Creatinine [Mass ratio] 29.0 mg/mg [facility] Bilirubin Ql (U) Negative NEGATIVE [facility] Glucose (U) [Mass/Vol] 250 mg/dL Abnormal NEGATIVE [facility] Ketones Ql (U) Negative NEGATIVE [facility] pH (U) 6.0 [pH] 5.0-9.0 [facility] Specific gravity (U) [Rel density] 1.020 1.005-1.025 [facility] Urobilinogen Qn (U) 0.2 {Meka'U}/dL 0.2-1.0 [facility] Laboratory - Specimen inform ationon 03-02-2025 Appearance (U) CLEAR CLEAR [facility] Color (U) LT. YELLOW YELLOW [facility] Laboratory - Urinalysison Leukocyte esterase Test strip Ql (U) Negative NEGATIVE [facility] Mucus Ql (Urine sed) TRACE Abnormal NONE SEEN [facility] Nitrite Ql (U) Negative NEGATIVE [facility] Protein (U) [Mass/Vol] 186.2 mg/dL High <=11.9 [facility] Protein Ql (U) >=300 mg/dL Abnormal NEG/TRACE [facility] Leukocytes [#/volume] correc gali for nucleated erythrocytes in Blood by Automated counon 03-02-2025 WBC corrected for nucl RBC Auto (Bld) [#/Vol] Leukocytes [#/volume] corrected for nucleated erythrocytes in Blood by Automated coun 4.0-11.0 [facility] WBC corrected for nucl RBC Auto (Bld) [#/Vol] 8.7 10 3/uL 4.0-11.0 [facility] MCH Auto (RBC) [Entitic mass ]on 03-02-2025 MCH (RBC) [Entitic mass] MCH [Entitic mass] by Automated count 26.7-34.0 [facility] MCH (RBC) [Entitic mass] 29.4 pg 26.7-34.0 [facility] MCHC Auto (RBC) [Mass/Vol]on 03-02-2025 MCHC (RBC) [Mass/Vol] MCHC [Mass/volume] by Automated count 29.9-35.2 [facility] MCHC (RBC) [Mass/Vol] 33.3 g/dL 29.9-35.2 [facility] MCV Auto (RBC) [Entitic vol] on 03-02-2025 MCV (RBC) [Entitic vol] MCV [Entitic volume] by Automated count 81.0-99.0 [facility] MCV (RBC) [Entitic vol] 88.2 fL 81.0-99.0 [facility] No Panel Informationon 03-02 25-Hydroxy Vitamin D Total 10.8 ng/mL [facility] Comment on above: <20 ng/mL Vit D defi cient20-<30 ng/mL Vit D [id number] ng/mL Vit D sufficient>100 ng/mL Potential Toxicity Parathyroid Hormone (Intact) 57 pg/mL [facility] Comment on above: Performed at: [address] [id number] Director: Dimitri Landis PhD, Phone: [phone] Phosphorus Level 4.9 mg/dL High 2.6-4.[address] [facility] 57 pg/mL [facility] 10.8 ng/mL [facility] 114.0 ng/mL 8.0-252.0 [facility] 4236.0 pg/mL Critically high <=1800.0 [facility] 1.0 mg/dL Low 1.8-2.4 [facility] 2.4 g/dL Low 3.4-5.0 [facility] 4.9 mg/dL High 2.6-4.7 [facility] 8.1 mg/dL Low 8.5-10.1 [facility] 136 mg/dL <=200 [facility] 29.0 [facility] 62.0 ug/dL 50.0-170.0 [facility] 56 mg/dL 40-60 [facility] 53.0 mg/dL High 7.0-18.0 [facility] 122 mg/dL <=150 [facility] 96 mmol/L Low 98-107 [facility] 31.2 mmol/L 21.0-32.0 [facility] 1.83 mg/dL High 0.55-1.02 [facility] 32 Low >=60 mL/min/1.73 m 2 [facility] 337 mg/dL High 74-106 [facility] 3.6 mmol/L 3.5-5.1 [facility] 137 mmol/L 136-145 [facility] Urine Bacteria SMALL #/HPF Abnormal NONE SEEN [facility] Urine Occult Blood TRACE-I NEGATIVE [facility] Urine Other Casts NONE SEEN #/LPF NONE SEEN [facility] Urine Other Crystals None Seen #/HPF None Seen [facility] Urine Random Creatinine 26.93 mg/dL 20.00-300.0 0 [facility] Urine RBC 2-5 #/HPF Abnormal 0-2 [facility] Urine Squamous Epithelial Cells FEW #/LPF Abnormal NONE/RARE [facility] Urine WBC NONE SEEN #/HPF NONE SEEN [facility] 26.93 mg/dL 20.00-300.0 0 [facility] 186.2 mg/dL High <=11.9 [facility] Office Visiton 03-02-2025 Follow-up visit [id number] Joe Call 1945 Date Provider Department Center 03/02/2025 [id number] BOYD [facility] Family History Problem Relation Age of Onset Heart disease Mother Heart attack Father Coronary artery disease Other Diabetes Other Polycystic kidney disease Other Family Status - Relation Status Age at Mother Father Sister Brother Other Level of Service:69526 SD OFFICE/OUTPATIENT ESTABLISHED MOD MDM 30 MIN Reason for Visit and Comments: 5 week follow up with Labs [Other] Normal [facility] Orders Onlyon 03-02-2025 Orders Only [id number] Joe Call 1945 F Date Provider Department Center 03/02/2025 ARSENIO CASTELLANO [facility] Family History Problem Relation Age of Onset Heart disease Mother Heart attack Father Coronary artery disease Other Diabetes Other Polycystic kidney disease Other Family Status - Relation Status Age at Mother Father Sister Brother Other Normal [facility] Platelet mean volume Auto (B ld) [Entitic vol]on 03-02-2025 Platelet mean volume (Bld) [Entitic vol] Platelet mean volume [Entitic volume] in Blood by Automated count 9.5-13.5 [facility] Platelet mean volume (Bld) [Entitic vol] 11.7 fL 9.5-13.5 [facility] Platelets Auto (Bld) [#/Vol] on 03-02-2025 Platelets (Bld) [#/Vol] Platelets [#/volume] in Blood by Automated count 150-450 [facility] Platelets (Bld) [#/Vol] 150 10 3/uL 150-450 [facility] RBC Auto (Bld) [#/Vol]on RBC (Bld) [#/Vol] Erythrocytes [#/volu me] in Blood by Automated count 4.20-5.40 [facility] RBC (Bld) [#/Vol] 4.39 10 6/uL 4.20-5.40 [facility] Serum or plasma anion gap de terminationon 03-02-2025 Anion gap [Moles/Vol] Serum or plasma an ion gap determination [facility] Anion gap [Moles/Vol] 13.4 [facility] Serum or plasma total choles terol/high density lipoprotein (HDL) cholesterol mass herminia 03-02-2025 Cholesterol.total/Chol esterol in HDL [Mass ratio] Serum or plasma total cholesterol/high density lipoprotein (HDL) cholesterol mass rat [facility] Comment on above: 3.3 - 4.4 LOW RISK4. 4 - 7.1 AVERAGE RISK7.1 - 11.0 MODERATE RISK>11.0 HIGH RISK Cholesterol.total/Chol esterol in HDL [Mass ratio] 2.4 {ratio} [facility] Comment on above: 3.3 - 4.4 LOW RISK4. 4 - 7.1 AVERAGE RISK7.1 - 11.0 MODERATE RISK>11.0 HIGH RISK Urine protein/creatinine rat ioon 03-02-2025 Protein/Creatinine (U) [Ratio] Urine protein/creatinine ratio [facility] Protein/Creatinine (U) [Ratio] 6.91 [facility] Yeast detection in urine sed iment by light microscopyon 03-02-2025 Yeast LM Ql (Urine sed) SEEN Abnormal NONE SEEN [facility] Office Visiton 01-28-2025 Follow-up visit [id number] Joe Call 1945 F Date Provider Department Center 01/28/2025 [id number] LUNA [facility] Family History Problem Relation Age of Onset Coronary artery disease Other Diabetes Other Polycystic kidney disease Other Family Status - Relation Status Age at Other Level of Service:62170 SD OFFICE/OUTPATIENT ESTABLISHED MOD MDM 30 MIN Reason for Visit and Comments: Hypertension [822928] Congestive Heart Failure [127] - Discharged yesterday from [facility] for CHF. Discharge papers from [facility] do not have her on a diuretic. Patient believes she's taking furosemide 40mg every other day. Coronary Artery Disease [187] Atrial Fibrillation [80] - Denies lightheadedness/syncope and bleeding on Xarelto. Hyperlipidemia [182] - No lipids since last visit. Edema [[id number]] Shortness of Breath [079148] - Improving. Palpitations [809953] Fall [153429] - Fell a few days ago at home when she slipped on the carpet. Normal [facility] Basophils Auto (Bld) [#/Vol] on 01-27-2025 Basophils (Bld) [#/Vol] Automated basophil count 0.0-0.1 [facility] Basophils/100 WBC Auto (Bld) on 01-27-2025 Basophils/100 WBC (Bld) Automated basophil % 0.2-2.0 [facility] Eosinophils/100 WBC Auto (Bl d)on 01-27-2025 Eosinophils/100 WBC (Bld) Automated eosinophil % 0.9-7.0 [facility] Erythrocyte distribution wid th Auto (RBC) [Ratio]on 01-27-2025 Erythrocyte distribution width (RBC) [Ratio] Erythrocyte distribution width [Ratio] by Automated count 11.0-15.0 [facility] Estimated glomerular filtrat ion rate (GFR) non- Americanon 01-27-2025 GFR/1.73 sq M.predicted among non-blacks MDRD (S/P/Bld) [Vol rate/Area] Estimated glomerular filtration rate (GFR) non- Low >=60 mL/min/1.73 m 2 [facility] Globulin Calc (S) [Mass/Vol] on 01-27-2025 Globulin (S) [Mass/Vol] Serum globulin measurement by calculation (mass/volume) [facility] Hematocrit Auto (Bld) [Volum e fraction]on 01-27-2025 Hematocrit (Bld) [Volume fraction] Hematocrit [Volume Fraction] of Blood by Automated count 36.0-48.0 [facility] Hemoglobin [Mass/volume] in Bloodon 01-27-2025 Hemoglobin (Bld) [Mass/Vol] Hemoglobin [Mass/volume] in Blood 12.0-16.0 [facility] Laboratory - Chemistry and C hemistry - challengeon 01-27-2025 Potassium [Moles/Vol] 3.8 mmol/L 3.5-5.1 [facility] Albumin [Mass/Vol] 2.1 g/dL Low 3.4-5.0 [facility] ALP [Catalytic activity/Vol] 79 U/L 46-116 [facility] ALT [Catalytic activity/Vol] 8 U/L Low 14-59 [facility] AST [Catalytic activity/Vol] 17 U/L 15-37 [facility] Bilirubin [Mass/Vol] 0.4 mg/dL 0.2-1.0 [facility] Calcium [Mass/Vol] 8.3 mg/dL Low 8.5-10.1 [facility] Chloride [Moles/Vol] 105 mmol/L 98-107 [facility] CO2 [Moles/Vol] 36.4 mmol/L High 21.0-32.[address] [facility] Creatinine [Mass/Vol] 1.52 mg/dL High 0.55-1.02 [facility] GFR/1.73 sq M.predicted MDRD (S/P/Bld) [Vol rate/Area] 40 mL/min/{1.73_m2} Low >=60 mL/min/1.73 m 2 [facility] Glucose [Mass/Vol] 113 mg/dL High 74-106 [facility] Magnesium [Mass/Vol] 1.3 mg/dL Low 1.8-2.4 [facility] Protein [Mass/Vol] 6.1 g/dL Low 6.4-8.2 [facility] Sodium [Moles/Vol] 144 mmol/L 136-145 [facility] Urea nitrogen [Mass/Vol] 22.0 mg/dL High 7.0-18.0 [facility] Urea nitrogen/Creatinine [Mass ratio] 14.5 mg/mg [facility] Laboratory - Hematology and Cell countson 01-27-2025 Immature granulocytes/100 WBC (Bld) 0.2 % 0.0-0.5 [facility] Leukocytes [#/volume] correc gali for nucleated erythrocytes in Blood by Automated counon 01-27-2025 WBC corrected for nucl RBC Auto (Bld) [#/Vol] Leukocytes [#/volume] corrected for nucleated erythrocytes in Blood by Automated coun 4.0-11.0 [facility] Lymphocytes Auto (Bld) [#/Vo l]on 01-27-2025 Lymphocytes (Bld) [#/Vol] Lymphocytes [#/volume] in Blood by Automated count 1.2-3.8 [facility] Lymphocytes/100 WBC Auto (Bl d)on 01-27-2025 Lymphocytes/100 WBC (Bld) Lymphocytes/100 leukocytes in Blood by Automated count 20.5-60.0 [facility] MCH Auto (RBC) [Entitic mass ]on 01-27-2025 MCH (RBC) [Entitic mass] MCH [Entitic mass] by Automated count 26.7-34.0 [facility] MCHC Auto (RBC) [Mass/Vol]on 01-27-2025 MCHC (RBC) [Mass/Vol] MCHC [Mass/volume] by Automated count 29.9-35.2 [facility] MCV Auto (RBC) [Entitic vol] on 01-27-2025 MCV (RBC) [Entitic vol] MCV [Entitic volume] by Automated count 81.0-99.0 [facility] Monocytes Auto (Bld) [#/Vol] on 01-27-2025 Monocytes (Bld) [#/Vol] Automated blood monocyte count High 0.3-0.8 [facility] Monocytes/100 WBC Auto (Bld) on 01-27-2025 Monocytes/100 WBC (Bld) Automated monocyte % 1.7-12.0 [facility] Neutrophils Auto (Bld) [#/Vo l]on 01-27-2025 Neutrophils (Bld) [#/Vol] Neutrophils [#/volume] in Blood by Automated count 1.4-6.5 [facility] Neutrophils/100 WBC Auto (Bl d)on 01-27-2025 Neutrophils/100 WBC (Bld) Automated neutrophil % 43.0-75.0 [facility] No Panel Informationon 01-27 3.8 mmol/L 3.5-5.1 [facility] Eosinophils # (Auto) 0.2 10 3/uL 0.0-0.7 [facility] Immature Granulocyte # (Auto) 0.02 10 3/uL 0.00-0.03 [facility] 1.3 mg/dL Low 1.8-2.4 [facility] 0.2 10 3/uL 0.0-0.7 [facility] 2.1 g/dL Low 3.4-5.0 [facility] 79 U/L 46-116 [facility] 8 U/L Low 14-59 [facility] 17 U/L 15-37 [facility] 0.02 10 3/uL 0.00-0.03 [facility] 14.5 [facility] 0.2 % 0.0-0.5 [facility] 22.0 mg/dL High 7.0-18.0 [facility] 8.3 mg/dL Low 8.5-10.1 [facility] 105 mmol/L 98-107 [facility] 36.4 mmol/L High 21.0-32.0 [facility] 1.52 mg/dL High 0.55-1.02 [facility] 40 Low >=60 mL/min/1.73 m 2 [facility] 113 mg/dL High 74-106 [facility] 144 mmol/L 136-145 [facility] 0.4 mg/dL 0.2-1.0 [facility] 6.1 g/dL Low 6.4-8.2 [facility] Platelet mean volume Auto (B ld) [Entitic vol]on 01-27-2025 Platelet mean volume (Bld) [Entitic vol] Platelet mean volume [Entitic volume] in Blood by Automated count 9.5-13.5 [facility] Platelets Auto (Bld) [#/Vol] on 01-27-2025 Platelets (Bld) [#/Vol] Platelets [#/volume] in Blood by Automated count 150-450 [facility] RBC Auto (Bld) [#/Vol]on RBC (Bld) [#/Vol] Erythrocytes [#/volu me] in Blood by Automated count 4.20-5.40 [facility] Serum or plasma albumin/glob ulin mass ratioon 01-27-2025 Albumin/Globulin [Mass ratio] Serum or plasma albumin/globulin mass ratio [facility] Serum or plasma anion gap de terminationon 01-27-2025 Anion gap [Moles/Vol] Serum or plasma an ion gap determination [facility] Basophils Auto (Bld) [#/Vol] on 01-26-2025 Basophils (Bld) [#/Vol] Automated basophil count 0.0-0.1 [facility] Basophils/100 WBC Auto (Bld) on 01-26-2025 Basophils/100 WBC (Bld) Automated basophil % 0.2-2.0 [facility] Eosinophils/100 WBC Auto (Bl d)on 01-26-2025 Eosinophils/100 WBC (Bld) Automated eosinophil % 0.9-7.0 [facility] Erythrocyte distribution wid th Auto (RBC) [Ratio]on 01-26-2025 Erythrocyte distribution width (RBC) [Ratio] Erythrocyte distribution width [Ratio] by Automated count 11.0-15.0 [facility] Estimated glomerular filtrat ion rate (GFR) non- Americanon 01-26-2025 GFR/1.73 sq M.predicted among non-blacks MDRD (S/P/Bld) [Vol rate/Area] Estimated glomerular filtration rate (GFR) non- Low >=60 mL/min/1.73 m 2 [facility] Globulin Calc (S) [Mass/Vol] on 01-26-2025 Globulin (S) [Mass/Vol] Serum globulin measurement by calculation (mass/volume) [facility] Hematocrit Auto (Bld) [Volum e fraction]on 01-26-2025 Hematocrit (Bld) [Volume fraction] Hematocrit [Volume Fraction] of Blood by Automated count 36.0-48.0 [facility] Hemoglobin [Mass/volume] in Bloodon 01-26-2025 Hemoglobin (Bld) [Mass/Vol] Hemoglobin [Mass/volume] in Blood 12.0-16.0 [facility] Laboratory - Chemistry and C hemistry - challengeon 01-26-2025 Albumin [Mass/Vol] 1.9 g/dL Low 3.4-5.0 [facility] ALP [Catalytic activity/Vol] 77 U/L 46-116 [facility] ALT [Catalytic activity/Vol] 11 U/L Low 14-59 [facility] AST [Catalytic activity/Vol] 19 U/L 15-37 [facility] Bilirubin [Mass/Vol] 0.4 mg/dL 0.2-1.0 [facility] Calcium [Mass/Vol] 8.0 mg/dL Low 8.5-10.1 [facility] Chloride [Moles/Vol] 105 mmol/L 98-107 [facility] CO2 [Moles/Vol] 35.1 mmol/L High 21.0-32.[address] [facility] Creatinine [Mass/Vol] 1.36 mg/dL High 0.55-1.02 [facility] GFR/1.73 sq M.predicted MDRD (S/P/Bld) [Vol rate/Area] 46 mL/min/{1.73_m2} Low >=60 mL/min/1.73 m 2 [facility] Glucose [Mass/Vol] 133 mg/dL High 74-106 [facility] Magnesium [Mass/Vol] 1.3 mg/dL Low 1.8-2.4 [facility] Potassium [Moles/Vol] 2.9 mmol/L Critically low 3.5-5.1 [facility] Comment on above: RESULTS CALLED TO JOSE MARTIN DODGE RN @BY Alla Venegas at [phone] Protein [Mass/Vol] 5.8 g/dL Low 6.4-8.2 [facility] Sodium [Moles/Vol] 145 mmol/L 136-145 [facility] Urea nitrogen [Mass/Vol] 21.0 mg/dL High 7.0-18.0 [facility] Urea nitrogen/Creatinine [Mass ratio] 15.4 mg/mg [facility] Laboratory - Hematology and Cell countson 01-26-2025 Immature granulocytes/100 WBC (Bld) 0.1 % 0.0-0.5 [facility] Leukocytes [#/volume] correc gali for nucleated erythrocytes in Blood by Automated counon 01-26-2025 WBC corrected for nucl RBC Auto (Bld) [#/Vol] Leukocytes [#/volume] corrected for nucleated erythrocytes in Blood by Automated coun 4.0-11.0 [facility] Lymphocytes Auto (Bld) [#/Vo l]on 01-26-2025 Lymphocytes (Bld) [#/Vol] Lymphocytes [#/volume] in Blood by Automated count 1.2-3.8 [facility] Lymphocytes/100 WBC Auto (Bl d)on 01-26-2025 Lymphocytes/100 WBC (Bld) Lymphocytes/100 leukocytes in Blood by Automated count Low 20.5-60.0 [facility] MCH Auto (RBC) [Entitic mass ]on 01-26-2025 MCH (RBC) [Entitic mass] MCH [Entitic mass] by Automated count 26.7-34.0 [facility] MCHC Auto (RBC) [Mass/Vol]on 01-26-2025 MCHC (RBC) [Mass/Vol] MCHC [Mass/volume] by Automated count 29.9-35.2 [facility] MCV Auto (RBC) [Entitic vol] on 01-26-2025 MCV (RBC) [Entitic vol] MCV [Entitic volume] by Automated count 81.0-99.0 [facility] Monocytes Auto (Bld) [#/Vol] on 01-26-2025 Monocytes (Bld) [#/Vol] Automated blood monocyte count 0.3-0.8 [facility] Monocytes/100 WBC Auto (Bld) on 01-26-2025 Monocytes/100 WBC (Bld) Automated monocyte % 1.7-12.0 [facility] Neutrophils Auto (Bld) [#/Vo l]on 01-26-2025 Neutrophils (Bld) [#/Vol] Neutrophils [#/volume] in Blood by Automated count 1.4-6.5 [facility] Neutrophils/100 WBC Auto (Bl d)on 01-26-2025 Neutrophils/100 WBC (Bld) Automated neutrophil % 43.0-75.0 [facility] No Panel Informationon 01-26 Eosinophils # (Auto) 0.1 10 3/uL 0.0-0.7 [facility] Immature Granulocyte # (Auto) 0.01 10 3/uL 0.00-0.03 [facility] Troponin I High Sensitivity 30.9 pg/mL 4.0-51.3 [facility] Comment on above: CUT-OFF POINTS HAVE [...] AND CLINICAL INFORMATION. 1.3 mg/dL Low 1.8-2.4 [facility] 30.9 pg/mL 4.0-51.3 [facility] 0.1 10 3/uL 0.0-0.7 [facility] 1.9 g/dL Low 3.4-5.0 [facility] 77 U/L 46-116 [facility] 11 U/L Low 14-59 [facility] 19 U/L 15-37 [facility] 0.01 10 3/uL 0.00-0.03 [facility] 15.4 [facility] 0.1 % 0.0-0.5 [facility] 21.0 mg/dL High 7.0-18.0 [facility] 8.0 mg/dL Low 8.5-10.1 [facility] 105 mmol/L 98-107 [facility] 35.1 mmol/L High 21.0-32.0 [facility] 1.36 mg/dL High 0.55-1.02 [facility] 46 Low >=60 mL/min/1.73 m 2 [facility] 133 mg/dL High 74-106 [facility] 2.9 mmol/L Critically low 3.5-5.1 [facility] 145 mmol/L 136-145 [facility] 0.4 mg/dL 0.2-1.0 [facility] 5.8 g/dL Low 6.4-8.2 [facility] Platelet mean volume Auto (B ld) [Entitic vol]on 01-26-2025 Platelet mean volume (Bld) [Entitic vol] Platelet mean volume [Entitic volume] in Blood by Automated count 9.5-13.5 [facility] Platelets Auto (Bld) [#/Vol] on 01-26-2025 Platelets (Bld) [#/Vol] Platelets [#/volume] in Blood by Automated count 150-450 [facility] RBC Auto (Bld) [#/Vol]on RBC (Bld) [#/Vol] Erythrocytes [#/volu me] in Blood by Automated count Low 4.20-5.40 [facility] Serum or plasma albumin/glob ulin mass ratioon 01-26-2025 Albumin/Globulin [Mass ratio] Serum or plasma albumin/globulin mass ratio [facility] Serum or plasma anion gap de terminationon 01-26-2025 Anion gap [Moles/Vol] Serum or plasma an ion gap determination [facility] Basophils Auto (Bld) [#/Vol] on 01-25-2025 Basophils (Bld) [#/Vol] Automated basophil count 0.0-0.1 [facility] Basophils/100 WBC Auto (Bld) on 01-25-2025 Basophils/100 WBC (Bld) Automated basophil % 0.2-2.0 [facility] Eosinophils/100 WBC Auto (Bl d)on 01-25-2025 Eosinophils/100 WBC (Bld) Automated eosinophil % 0.9-7.0 [facility] Erythrocyte distribution wid th Auto (RBC) [Ratio]on 01-25-2025 Erythrocyte distribution width (RBC) [Ratio] Erythrocyte distribution width [Ratio] by Automated count 11.0-15.0 [facility] Estimated glomerular filtrat ion rate (GFR) non- Americanon 01-25-2025 GFR/1.73 sq M.predicted among non-blacks MDRD (S/P/Bld) [Vol rate/Area] Estimated glomerular filtration rate (GFR) non- Low >=60 mL/min/1.73 m 2 [facility] Hematocrit Auto (Bld) [Volum e fraction]on 01-25-2025 Hematocrit (Bld) [Volume fraction] Hematocrit [Volume Fraction] of Blood by Automated count 36.0-48.0 [facility] Hemoglobin [Mass/volume] in Bloodon 01-25-2025 Hemoglobin (Bld) [Mass/Vol] Hemoglobin [Mass/volume] in Blood 12.0-16.0 [facility] Laboratory - Chemistry and C hemistry - challengeon 01-25-2025 Potassium [Moles/Vol] 3.1 mmol/L Low 3.5-5.1 [facility] Free T4 [Mass/Vol] 1.65 ng/dL High 0.76-1.46 [facility] Magnesium [Mass/Vol] 1.2 mg/dL Low 1.8-2.4 [facility] TSH Qn 6.107 m[IU]/L High 0.358-3.740 [facility] Calcium [Mass/Vol] 8.1 mg/dL Low 8.5-10.1 [facility] Chloride [Moles/Vol] 104 mmol/L 98-107 [facility] CO2 [Moles/Vol] 34.6 mmol/L High 21.0-32.[address] [facility] Creatinine [Mass/Vol] 1.49 mg/dL High 0.55-1.02 [facility] GFR/1.73 sq M.predicted MDRD (S/P/Bld) [Vol rate/Area] 41 mL/min/{1.73_m2} Low >=60 mL/min/1.73 m 2 [facility] Glucose [Mass/Vol] 121 mg/dL High 74-106 [facility] Natriuretic peptide B (Bld) [Mass/Vol] 7089.0 pg/mL Critically high <=1800.0 [facility] Comment on above: RESULTS CALLED TO RENETTA Hogan, RN @BY Andrea Long [place] at [phone] Sodium [Moles/Vol] 144 mmol/L 136-145 [facility] Urea nitrogen [Mass/Vol] 22.0 mg/dL High 7.0-18.0 [facility] Urea nitrogen/Creatinine [Mass ratio] 14.8 mg/mg [facility] Laboratory - Hematology and Cell countson 01-25-2025 Immature granulocytes/100 WBC (Bld) 0.4 % 0.0-0.5 [facility] Leukocytes [#/volume] correc gali for nucleated erythrocytes in Blood by Automated counon 01-25-2025 WBC corrected for nucl RBC Auto (Bld) [#/Vol] Leukocytes [#/volume] corrected for nucleated erythrocytes in Blood by Automated coun 4.0-11.0 [facility] Lymphocytes Auto (Bld) [#/Vo l]on 01-25-2025 Lymphocytes (Bld) [#/Vol] Lymphocytes [#/volume] in Blood by Automated count 1.2-3.8 [facility] Lymphocytes/100 WBC Auto (Bl d)on 01-25-2025 Lymphocytes/100 WBC (Bld) Lymphocytes/100 leukocytes in Blood by Automated count Low 20.5-60.0 [facility] MCH Auto (RBC) [Entitic mass ]on 01-25-2025 MCH (RBC) [Entitic mass] MCH [Entitic mass] by Automated count 26.7-34.0 [facility] MCHC Auto (RBC) [Mass/Vol]on 01-25-2025 MCHC (RBC) [Mass/Vol] MCHC [Mass/volume] by Automated count 29.9-35.2 [facility] MCV Auto (RBC) [Entitic vol] on 01-25-2025 MCV (RBC) [Entitic vol] MCV [Entitic volume] by Automated count 81.0-99.0 [facility] Monocytes Auto (Bld) [#/Vol] on 01-25-2025 Monocytes (Bld) [#/Vol] Automated blood monocyte count 0.3-0.8 [facility] Monocytes/100 WBC Auto (Bld) on 01-25-2025 Monocytes/100 WBC (Bld) Automated monocyte % 1.7-12.0 [facility] Neutrophils Auto (Bld) [#/Vo l]on 01-25-2025 Neutrophils (Bld) [#/Vol] Neutrophils [#/volume] in Blood by Automated count 1.4-6.5 [facility] Neutrophils/100 WBC Auto (Bl d)on 01-25-2025 Neutrophils/100 WBC (Bld) Automated neutrophil % 43.0-75.0 [facility] No Panel Informationon 01-25 3.1 mmol/L Low 3.5-5.1 [facility] Clostridium difficile (PCR)(LAB) Negative [facility] Negative [facility] Troponin I High Sensitivity 28.4 pg/mL 4.0-51.3 [facility] Comment on above: CUT-OFF POINTS HAVE [...] AND CLINICAL INFORMATION. 1.65 ng/dL High 0.76-1.46 [facility] 6.107 u[iU]/mL High 0.358-3.740 [facility] 28.4 pg/mL 4.0-51.3 [facility] 1.2 mg/dL Low 1.8-2.4 [facility] Eosinophils # (Auto) 0.1 10 3/uL 0.0-0.7 [facility] Immature Granulocyte # (Auto) 0.03 10 3/uL 0.00-0.03 [facility] 7089.0 pg/mL Critically high <=1800.0 [facility] 14.8 [facility] 22.0 mg/dL High 7.0-18.0 [facility] 0.1 10 3/uL 0.0-0.7 [facility] 8.1 mg/dL Low 8.5-10.1 [facility] 104 mmol/L 98-107 [facility] 34.6 mmol/L High 21.0-32.0 [facility] 1.49 mg/dL High 0.55-1.02 [facility] 0.03 10 3/uL 0.00-0.03 [facility] 41 Low >=60 mL/min/1.73 m 2 [facility] 0.4 % 0.0-0.5 [facility] 121 mg/dL High 74-106 [facility] 144 mmol/L 136-145 [facility] Platelet mean volume Auto (B ld) [Entitic vol]on 01-25-2025 Platelet mean volume (Bld) [Entitic vol] Platelet mean volume [Entitic volume] in Blood by Automated count 9.5-13.5 [facility] Platelets Auto (Bld) [#/Vol] on 01-25-2025 Platelets (Bld) [#/Vol] Platelets [#/volume] in Blood by Automated count 150-450 [facility] RBC Auto (Bld) [#/Vol]on RBC (Bld) [#/Vol] Erythrocytes [#/volu me] in Blood by Automated count Low 4.20-5.40 [facility] Serum or plasma anion gap de terminationon 01-25-2025 Anion gap [Moles/Vol] Serum or plasma an ion gap determination [facility] Laboratory - Chemistry and C hemistry - challengeon 01-21-2025 Bilirubin Ql (U) ++ [facility] Glucose (U) [Mass/Vol] [facility] Ql (U) Negative [facility] pH (U) 6.0 [pH] [facility] Specific gravity (U) [Rel density] 1.010 [facility] Urobilinogen (U) [Mass/Vol] 0.2 mg/dL [facility] Laboratory - Specimen inform ationon 01-21-2025 Appearance (U) cloudy [facility] Color (U) darkyellow [facility] Laboratory - Urinalysison Leukocyte esterase Test strip Ql (U) Negative [facility] Nitrite Ql (U) Negative [facility] Protein Ql (U) ++++ [facility] No Panel Informationon 01-21 Urine Occult Blood 5-10 [facility] darkyellow [facility] cloudy [facility] 1.010 [facility] 6.0 [facility] Negative [facility] ++++ [facility] + [facility] 0.2 [facility] ++ [facility] 5-10 [facility] Basophils Auto (Bld) [#/Vol] on 12-04-2024 Basophils (Bld) [#/Vol] Automated basophil count 0.0-0.1 [facility] Basophils/100 WBC Auto (Bld) on 12-04-2024 Basophils/100 WBC (Bld) Automated basophil % 0.2-2.0 [facility] Eosinophils/100 WBC Auto (Bl d)on 12-04-2024 Eosinophils/100 WBC (Bld) Automated eosinophil % 0.9-7.0 [facility] Erythrocyte distribution wid th Auto (RBC) [Ratio]on 12-04-2024 Erythrocyte distribution width (RBC) [Ratio] Erythrocyte distribution width [Ratio] by Automated count 11.0-15.0 [facility] Estimated glomerular filtrat ion rate (GFR) non- Americanon 12-04-2024 GFR/1.73 sq M.predicted among non-blacks MDRD (S/P/Bld) [Vol rate/Area] Estimated glomerular filtration rate (GFR) non- Low >=60 mL/min/1.73 m 2 [facility] Globulin Calc (S) [Mass/Vol] on 12-04-2024 Globulin (S) [Mass/Vol] Serum globulin measurement by calculation (mass/volume) [facility] Hematocrit Auto (Bld) [Volum e fraction]on 12-04-2024 Hematocrit (Bld) [Volume fraction] Hematocrit [Volume Fraction] of Blood by Automated count 36.0-48.0 [facility] Hemoglobin [Mass/volume] in Bloodon 12-04-2024 Hemoglobin (Bld) [Mass/Vol] Hemoglobin [Mass/volume] in Blood Low 12.0-16.0 [facility] INR in Platelet poor plasma by Coagulation assayon 12-04-2024 INR Coag (PPP) [Relative time] INR in Platelet poor plasma by Coagulation assay [facility] Comment on above: DESIRED INR:2.0-3.0 CONDITIONS NOT LISTED BELOW2.5-3.5 FOR PROSTHETIC HEART VALVE REPLACEMENT2.5-3.5 RECURRENT THROMBOSIS Laboratory - Chemistry and C hemistry - challengeon 12-04-2024 Albumin [Mass/Vol] 2.7 g/dL Low 3.4-5.0 [facility] ALP [Catalytic activity/Vol] 111 U/L 46-116 [facility] ALT [Catalytic activity/Vol] 19 U/L 14-59 [facility] AST [Catalytic activity/Vol] 16 U/L 15-37 [facility] Bilirubin [Mass/Vol] 0.6 mg/dL 0.2-1.0 [facility] Calcium [Mass/Vol] 8.7 mg/dL 8.5-10.1 [facility] Chloride [Moles/Vol] 101 mmol/L 98-107 [facility] CO2 [Moles/Vol] 29.9 mmol/L 21.0-32.[address] [facility] Creatinine [Mass/Vol] 1.24 mg/dL High 0.55-1.02 [facility] GFR/1.73 sq M.predicted MDRD (S/P/Bld) [Vol rate/Area] 51 mL/min/{1.73_m2} Low >=60 mL/min/1.73 m 2 [facility] Glucose [Mass/Vol] 310 mg/dL High 74-106 [facility] Natriuretic peptide B (Bld) [Mass/Vol] 3884.0 pg/mL Critically high <=1800.0 [facility] Comment on above: RESULTS CALLED TO AMILCAR RANGEL RN Potassium [Moles/Vol] 4.3 mmol/L 3.5-5.1 [facility] Protein [Mass/Vol] 7.0 g/dL 6.4-8.2 [facility] Sodium [Moles/Vol] 138 mmol/L 136-145 [facility] Urea nitrogen [Mass/Vol] 28.0 mg/dL High 7.0-18.0 [facility] Urea nitrogen/Creatinine [Mass ratio] 22.6 mg/mg [facility] Laboratory - Hematology and Cell countson 12-04-2024 Immature granulocytes/100 WBC (Bld) 0.2 % 0.0-0.5 [facility] Leukocytes [#/volume] correc gali for nucleated erythrocytes in Blood by Automated counon 12-04-2024 WBC corrected for nucl RBC Auto (Bld) [#/Vol] Leukocytes [#/volume] corrected for nucleated erythrocytes in Blood by Automated coun 4.0-11.0 [facility] Lymphocytes Auto (Bld) [#/Vo l]on 12-04-2024 Lymphocytes (Bld) [#/Vol] Lymphocytes [#/volume] in Blood by Automated count 1.2-3.8 [facility] Lymphocytes/100 WBC Auto (Bl d)on 12-04-2024 Lymphocytes/100 WBC (Bld) Lymphocytes/100 leukocytes in Blood by Automated count Low 20.5-60.0 [facility] MCH Auto (RBC) [Entitic mass ]on 12-04-2024 MCH (RBC) [Entitic mass] MCH [Entitic mass] by Automated count 26.7-34.0 [facility] MCHC Auto (RBC) [Mass/Vol]on 12-04-2024 MCHC (RBC) [Mass/Vol] MCHC [Mass/volume] by Automated count 29.9-35.2 [facility] MCV Auto (RBC) [Entitic vol] on 12-04-2024 MCV (RBC) [Entitic vol] MCV [Entitic volume] by Automated count 81.0-99.0 [facility] Monocytes Auto (Bld) [#/Vol] on 12-04-2024 Monocytes (Bld) [#/Vol] Automated blood monocyte count 0.3-0.8 [facility] Monocytes/100 WBC Auto (Bld) on 12-04-2024 Monocytes/100 WBC (Bld) Automated monocyte % 1.7-12.0 [facility] Neutrophils Auto (Bld) [#/Vo l]on 12-04-2024 Neutrophils (Bld) [#/Vol] Neutrophils [#/volume] in Blood by Automated count 1.4-6.5 [facility] Neutrophils/100 WBC Auto (Bl d)on 12-04-2024 Neutrophils/100 WBC (Bld) Automated neutrophil % 43.0-75.0 [facility] No Panel Informationon 12-04 Eosinophils # (Auto) 0.1 10 3/uL 0.0-0.7 [facility] Immature Granulocyte # (Auto) 0.02 10 3/uL 0.00-0.03 [facility] Troponin I High Sensitivity 19.6 pg/mL 4.0-51.3 [facility] Comment on above: CUT-OFF POINTS HAVE [...] volume] in Blood by Automated count 9.5-13.5 [facility] Platelets Auto (Bld) [#/Vol] on 12-04-2024 Platelets (Bld) [#/Vol] Platelets [#/volume] in Blood by Automated count 150-450 [facility] Prothrombin time (PT)on 11-13 PT Coag (PPP) [Time] Prothrombin time (PT) High 9.0- 11.6 [facility] RBC Auto (Bld) [#/Vol]on RBC (Bld) [#/Vol] Erythrocytes [#/volu me] in Blood by Automated count Low 4.20-5.40 [facility] Serum or plasma albumin/glob ulin mass ratioon 12-04-2024 Albumin/Globulin [Mass ratio] Serum or plasma albumin/globulin mass ratio [facility] Serum or plasma anion gap de terminationon 12-04-2024 Anion gap [Moles/Vol] Serum or plasma an ion gap determination [facility] Office Visiton 12-02-2024 Follow-up visit [id number] Joe Call 1945 F Date Provider Department Center 12/02/2024 [id number] LUNA Family History Problem Relation Age of Onset Coronary artery disease Other Diabetes Other Polycystic kidney disease Other Family Status - Relation Status Age at Other Level of Service:43507 SD OFFICE/OUTPATIENT ESTABLISHED MOD MDM 30 MIN Reason for Visit and Comments: Atrial Fibrillation [80] Congestive Heart Failure [127] - Had BMP 3 weeks ago. Taking lasix PRN. Hypertension [299133] Bradycardia [066624] Normal [facility] 36on 11-18-2024 36 Regarding lab result s from 11/03/2024: MD Brooke Sawyer MA Creatinine appears to be better. Patient's made aware. Normal [facility] Ambulatory Visit Summaryon 0 11-13-2024 Ambulatory [...] FRANCHESCA PERAZA PA-C Where: [facility] [address] [address] 2024 11:20 AM EST With: FRANCHESCA PERAZA PA-C Where: [facility] [address] [address]- Medications What How Much When Why Instructions [...] choosing us for your care. Normal [facility] Estimated glomerular filtrat ion rate (GFR) non- Americanon 11-10-2024 GFR/1.73 sq M.predicted among non-blacks MDRD (S/P/Bld) [Vol rate/Area] Estimated glomerular filtration rate (GFR) non- Low >=60 mL/min/1.73 m 2 [facility] Laboratory - Chemistry and C hemistry - challengeon 11-10-2024 Albumin [Mass/Vol] 3.0 g/dL Low 3.4-5.0 [facility] Calcium [Mass/Vol] 8.5 mg/dL 8.5-10.1 [facility] Chloride [Moles/Vol] 99 mmol/L 98-107 [facility] CO2 [Moles/Vol] 26.2 mmol/L 21.0-32.[address] [facility] Creatinine [Mass/Vol] 2.00 mg/dL High 0.55-1.02 [facility] GFR/1.73 sq M.predicted MDRD (S/P/Bld) [Vol rate/Area] 29 mL/min/{1.73_m2} Low >=60 mL/min/1.73 m 2 [facility] Glucose [Mass/Vol] 424 mg/dL High 74-106 [facility] Potassium [Moles/Vol] 4.5 mmol/L 3.5-5.1 [facility] Sodium [Moles/Vol] 136 mmol/L 136-145 [facility] Urea nitrogen [Mass/Vol] 58.0 mg/dL High 7.0-18.0 [facility] Urea nitrogen/Creatinine [Mass ratio] 29.0 mg/mg [facility] No Panel Informationon 11-10 Phosphorus Level 3.6 mg/dL 2.6-4.[address] [facility] Serum or plasma anion gap de terminationon 11-10-2024 Anion gap [Moles/Vol] Serum or plasma an ion gap determination [facility] Urology Office/Clinic Noteon 11-04-2024 Urology Office/Clinic Note Urology Office/Clinic Note Chief Complaint Hospital follow up HPI Staff Pt. did see Dr. Gallardo about 20 years ago Admitted [facility] 10/16 after going to ER for [...] note of the bladder scan anywhere on [facility] system or output volume once peacock [...] it well. Follows w nephrology for CKD. [employer] 10/25/24 1.31 compared to 3.06 on 10/20/24 [...] peacock removal. (3) f/u 4-6 weeks w ri assuming good outcome of (1) and (2). Ordered: E&M of New Patient High 60-74 Min 56613 2. CKD (chronic kidney disease) (N18.9: Chronic kidney disease, unspecified) Follows w Dr Rapp [employer] 1.31 on day of dc (10/25/24) Most recent labs 11/03/24 - BUN 34 [employer] 1.86 GFR 26 Pretty variable all year. (Results scanned into documents) Will repeat in 1 week after peacock removal. Sees Dr Rapp either 11/10 or 11/11. Ordered: E&M of New Patient High 60-74 Min 44413 Renal Function Panel 3. Stress incontinence (N39.3: Stress incontinence (female) (male)) At baseline. Typically when stands from seated position or coughing. 2-4 pads per day. Reassess baseline sx at f/u in 4-6 wks. Ordered: E&M of New Patient High 60-74 Min 36471 Total time spent reviewing previous notes/results/external documents, preparing the chart, conducting the encounter with the patient and family, ordering tests/medications, and documenting the encounter was 60 minutes. Follow-up With When Contact Information SYDNIE HASSAN Within 6 weeks [address] [place] [address] Business (1) Additional Instructions: Patient [...] 3 (more content not included)... Normal [facility] Comment on above: Result Comment: Elec tronically Signed By: FRANCHESCA PERAZA PA-C\.br\Date and Time Signed: 11/04/24 11:13 EST Estimated glomerular filtrat ion rate (GFR) non- Americanon 11-03-2024 GFR/1.73 sq M.predicted among non-blacks MDRD (S/P/Bld) [Vol rate/Area] Estimated glomerular filtration rate (GFR) non- Low >=60 mL/min/1.73 m 2 [facility] Laboratory - Chemistry and C hemistry - challengeon 11-03-2024 Calcium [Mass/Vol] 8.8 mg/dL 8.5-10.1 [facility] Chloride [Moles/Vol] 99 mmol/L 98-107 [facility] CO2 [Moles/Vol] 23.1 mmol/L 21.0-32.[address] [facility] Creatinine [Mass/Vol] 1.86 mg/dL High 0.55-1.02 [facility] GFR/1.73 sq M.predicted MDRD (S/P/Bld) [Vol rate/Area] 32 mL/min/{1.73_m2} Low >=60 mL/min/1.73 m 2 [facility] Glucose [Mass/Vol] 367 mg/dL High 74-106 [facility] Potassium [Moles/Vol] 4.7 mmol/L 3.5-5.1 [facility] Sodium [Moles/Vol] 134 mmol/L Low 136-145 [facility] Urea nitrogen [Mass/Vol] 34.0 mg/dL High 7.0-18.0 [facility] Urea nitrogen/Creatinine [Mass ratio] 18.3 mg/mg [facility] Serum or plasma anion gap de terminationon 11-03-2024 Anion gap [Moles/Vol] Serum or plasma an ion gap determination [facility] Office Visiton 10-31-2024 Follow-up visit [id number] Joe Call Bela 1945 F Date Provider Department Center 10/31/2024 [id number] BOYD MARILUZ Bruno Family History Problem Relation Age of Onset Coronary artery disease Other Diabetes Other Polycystic kidney disease Other Family Status - Relation Status Age at Other Level of Service:57138 SD OFFICE/OUTPATIENT ESTABLISHED MOD MDM 30 MIN Normal [facility] B-Type Natriuretic Peptideon 10-25-2024 Natriuretic peptide B (Bld) [Mass/Vol] 455.0 pg/mL High 5-100 [facility] Comment on above: Result Comment: PERF ORMED BY: [facility] [address] [place] [address] PATHOLOGIST SPEECH COMMUNICATION INSTRUCTOR MAY HYDE M.D. Performed By: #### G LULS #### Point of Care testing , Basic Metabolic Panelon 10-12 Anion gap [Moles/Vol] 13.0 mmol/L Normal 6.0-15.0 [facility] Comment on above: Performed By: #### G LULS #### Point of Care testing , Calcium [Mass/Vol] 8.6 mg/dL Normal 8.6-10.3 [facility] Comment on above: Performed By: #### G LULS #### Point of Care testing , Chloride [Moles/Vol] 101 mmol/L Normal 98-107 [facility] Comment on above: Performed By: #### G LULS #### Point of Care testing , CO2 [Moles/Vol] 23.8 mmol/L Normal 21.0-31.0 [facility] Comment on above: Performed By: #### G LULS #### Point of Care testing , Creatinine [Mass/Vol] 1.31 mg/dL High 0.60-1.20 [facility] Comment on above: Performed By: #### G LULS #### Point of Care testing , Creatinine Clr Calc Pharmacy 46.58 Normal [facility] Comment on above: Result Comment: PERF ORMED BY: [facility] [place] [address] PATHOLOGIST SPEECH COMMUNICATION INSTRUCTOR MAY HYDE M.D. Performed By: #### G LULS #### Point of Care testing , Estimated GFR 41.704 mL/Min Normal [facility] Comment on above: Performed By: #### G LULS #### Point of Care testing , Glucose [Mass/Vol] 232 mg/dL High 70-100 [facility] Comment on above: Result Comment: [facility] Glucose Reference Range is dependent on time and content of last meal. Glucose of more than 200 mg/dL in a nonstressed, ambulatory subject supports the diagnosis of Diabetes Mellitus. ADA recommended reference range Performed By: #### G LULS #### Point of Care testing , Potassium [Moles/Vol] 4.8 mmol/L Normal 3.5-5.1 [facility] Comment on above: Performed By: #### G LULS #### Point of Care testing , Sodium [Moles/Vol] 133 mmol/L Low 136-145 [facility] Comment on above: Performed By: #### G LULS #### Point of Care testing , Urea nitrogen [Mass/Vol] 39 mg/dL High 7-25 [facility] Comment on above: Performed By: #### G LULS #### Point of Care testing , Basophils Auto (Bld) [#/Vol] Ordered By: Daniele Jane on 10-25-2024 Basophils (Bld) [#/Vol] Automated basophil count 0.0-0.2 [facility] Basophils/100 WBC Auto (Bld) Ordered By: Daniele Jane on 10-25-2024 Basophils/100 WBC (Bld) Automated basophil % . [facility] COVID CepheidOrdered By: Trino Jane on 10-25-2024 SARS-CoV-2 (COVID-19) Ab IA Ql COVID Cepheid Abnormal Negative [facility] Comment on above: This is a [...] or Cepheid Disclaimer revoked sooner. PERFORMED BY: [facility] [place] [address] [place] [address] PATHOLOGIST SPEECH COMMUNICATION INSTRUCTOR MAY HYDE M.D. Normal [facility] Comment on above: Performed By: #### C OVID19 FLU RSV, CEPHEID POS #### [facility] [address] [place] [address] [facility] Calcium [Mass/volume] in Ser um or PlasmaOrdered By: Daniele Jane on 10-25-2024 Calcium [Mass/Vol] Calcium [Mass/volume ] in Serum or Plasma 8.6-10.3 [facility] Carbon dioxide, total [Moles /volume] in Serum or PlasmaOrdered By: Daniele Jane on 10-25-2024 CO2 [Moles/Vol] Carbon dioxide, tota l [Moles/volume] in Serum or Plasma 21.0-31.0 [facility] Cepheid COVID PCR Positiveon 10-25-2024 SARS-CoV-2 (COVID-19) RNA FERN+probe Ql (Unsp spec) Positive Critically abnormal Negative [facility] Comment on above: Result Comment: This is a duplicate Cepheid Xpert Xpress CoV-2/Flu/RSV Plus RNA by RT-PCR result to be used for statistical tracking purpose only. PERFORMED BY: [place] [address] PATHOLOGIST SPEECH COMMUNICATION INSTRUCTOR MAY HYDE M.D. Performed By: #### C OVID19 FLU RSV, CEPHEID POS #### [address] [address] [place] Chloride [Moles/volume] in S oziel or PlasmaOrdered By: Daniele Jane on 10-25-2024 Chloride [Moles/Vol] Chloride [Moles/vol ume] in Serum or Plasma 98-107 [facility] Complete Blood Count Auto Di ffon 10-25-2024 Basophils (Bld) [#/Vol] 0.1 10*3/uL Normal 0.0-0.2 [facility] Comment on above: Result Comment: PERF ORMED BY: [address] [place] [id number] PATHOLOGIST SPEECH COMMUNICATION INSTRUCTOR MAY HYDE M.D. Performed By: #### G LULS #### Point of Care testing , Basophils/100 WBC (Bld) 0.9 % Normal . [facility] Comment on above: Performed By: #### G LULS #### Point of Care testing , Eosinophils (Bld) [#/Vol] 0.1 10*3/uL Normal 0.0-0.45 [facility] Comment on above: Performed By: #### G LULS #### Point of Care testing , Eosinophils/100 WBC (Bld) 1.5 % Normal . [facility] Comment on above: Performed By: #### G LULS #### Point of Care testing , Erythrocyte distribution width (RBC) [Ratio] 15.3 % Normal 11.9-15.3 [facility] Comment on above: Performed By: #### G LULS #### Point of Care testing , Hematocrit (Bld) [Volume fraction] 36.2 % Normal 34.0-46.4 [facility] Comment on above: Performed By: #### G LULS #### Point of Care testing , Hemoglobin (Bld) [Mass/Vol] 12.2 g/dL Normal 11.8-15.4 [facility] Comment on above: Performed By: #### G LULS #### Point of Care testing , Lymphocytes (Bld) [#/Vol] 0.8 10*3/uL Low 1.00-4.8 [facility] Comment on above: Performed By: #### G LULS #### Point of Care testing , Lymphocytes/100 WBC (Bld) 9.8 % Normal . [facility] Comment on above: Performed By: #### G LULS #### Point of Care testing , MCH (RBC) [Entitic mass] 29.5 pg Normal 24.7-34.3 [facility] Comment on above: Performed By: #### G LULS #### Point of Care testing , MCV (RBC) [Entitic vol] 87.6 fL Normal 80-100 [facility] Comment on above: Performed By: #### G LULS #### Point of Care testing , Mean Corpuscular HGB Conc 33.7 g/dL Normal 32.0-35.0 [facility] Comment on above: Performed By: #### G LULS #### Point of Care testing , Monocytes (Bld) [#/Vol] 0.8 10*3/uL Normal 0.0-0.8 [facility] Comment on above: Performed By: #### G LULS #### Point of Care testing , Monocytes/100 WBC (Bld) 25.33 % High 0.00-20.00 [facility] Comment on above: Result Comment: For adults in ED, MDW > 20.0 may be associated with a higher risk of sepsis during the first 12 hrs of hospital admission Performed By: #### G LULS #### Point of Care testing , Monocytes/100 WBC (Bld) 10.7 % Normal . [facility] Comment on above: Performed By: #### G LULS #### Point of Care testing , Neutrophils (Bld) [#/Vol] 6.1 10*3/uL Normal 1.8-7.7 [facility] Comment on above: Performed By: #### G LULS #### Point of Care testing , Neutrophils/100 WBC (Bld) 77.1 % Normal . [facility] Comment on above: Performed By: #### G LULS #### Point of Care testing , NRBC% 0.1 /100{WBC} Normal 0-0.[address] [facility] Comment on above: Performed By: #### G LULS #### Point of Care testing , Platelet mean volume (Bld) [Entitic vol] 9.0 fL Normal 6.3-10.7 [facility] Comment on above: Performed By: #### G LULS #### Point of Care testing , Platelets (Bld) [#/Vol] 142 10*3/uL Low 150-450 [facility] Comment on above: Performed [...] olume] in Serum or Plasma High 0.60-1.20 [facility] ECG 12 lead ECGon 10-25-2024 ECG 12 lead ECG [facility] [address] Electrocardiograph Report Signed Patient: Joe Call MR#: [id number] 0 : 1945 Acct:[id number] Age/Sex: 79 / F ADM Date: 10/25/24 Loc: ER Room: Type: [facility] ER Attending Dr: Ordering Provider: Daniele [...] sinus arrhythmia Confirmed by Daniele Jane DO ([id number]) on 10/25/2024 2:01:48 PM Referred By: Electronically Signed By: Daniele Jane DO Transcribed By: MUS Signed By Daniele Jane DO 1401 Normal [facility] Eosinophils Auto (Bld) [#/Vo l]Ordered By: Daniele Jane on 10-25-2024 Eosinophils (Bld) [#/Vol] Automated eosinophil count 0.0-0.45 [facility] Eosinophils/100 WBC Auto (Bl d)Ordered By: Daniele Jane on 10-25-2024 Eosinophils/100 WBC (Bld) Automated eosinophil % . [facility] Erythrocyte distribution wid th Auto (RBC) [Ratio]Ordered By: Daniele Jane on 10-25-2024 Erythrocyte distribution width (RBC) [Ratio] Erythrocyte distribution width [Ratio] by Automated count 11.9-15.3 [facility] Glucose [Mass/volume] in Ser um or PlasmaOrdered By: Daniele Jane on 10-25-2024 Glucose [Mass/Vol] Glucose [Mass/volume ] in Serum or Plasma High 70-100 [facility] Comment on above: ADA recommended refe rence rangeRandom Glucose Reference Range is dependent on time and content of last meal. Glucose of more than 200 mg/dL in a nonstressed, ambulatory subject supports the diagnosis of Diabetes Mellitus. Hematocrit Auto (Bld) [Volum e fraction]Ordered By: Daniele Jane on 10-25-2024 Hematocrit (Bld) [Volume fraction] Hematocrit [Volume Fraction] of Blood by Automated count 34.0-46.4 [facility] Hemoglobin [Mass/volume] in BloodOrdered By: Daniele Jane on 10-25-2024 Hemoglobin (Bld) [Mass/Vol] Hemoglobin [Mass/volume] in Blood 11.8-15.4 [facility] INR in Platelet poor plasma by Coagulation assayOrdered By: Daniele Jane on 10-25-2024 INR Coag (PPP) [Relative time] INR in Platelet poor plasma by Coagulation assay [facility] Comment on above: INR Therapeutic Rang [...] erythrocytes in Blood by Automated coun 3.8-11.6 [facility] Lymphocytes Auto (Bld) [#/Vo l]Ordered By: Daniele Jane on 10-25-2024 Lymphocytes (Bld) [#/Vol] Lymphocytes [#/volume] in Blood by Automated count Low 1.00-4.8 [facility] Lymphocytes/100 WBC Auto (Bl d)Ordered By: Daniele Jane on 10-25-2024 Lymphocytes/100 WBC (Bld) Lymphocytes/100 leukocytes in Blood by Automated count . [facility] MCH Auto (RBC) [Entitic mass ]Ordered By: Daniele Jane on 10-25-2024 MCH (RBC) [Entitic mass] MCH [Entitic mass] by Automated count 24.7-34.3 [facility] MCHC Auto (RBC) [Mass/Vol]Or dered By: Daniele Jane on 10-25-2024 MCHC (RBC) [Mass/Vol] MCHC [Mass/volume] by Automated count 32.0-35.0 [facility] MCV Auto (RBC) [Entitic vol] Ordered By: Daniele Jane on 10-25-2024 MCV (RBC) [Entitic vol] MCV [Entitic volume] by Automated count 80-100 [facility] Monocyte distribution width [Entitic volume] in Blood by AutomatedOrdered By: Daniele Jane on 10-25-2024 Monocyte distribution width Auto (Bld) [Entitic vol] Monocyte distribution width [Entitic volume] in Blood by Automated High 0.00-20.00 [facility] Comment on above: For adults in ED, MD W > 20.0 may be associated with a higher risk of sepsis during the first 12 hrs of hospital admission Monocytes Auto (Bld) [#/Vol] Ordered By: Daniele Jane on 10-25-2024 Monocytes (Bld) [#/Vol] Automated blood monocyte count 0.0-0.8 [facility] Monocytes/100 WBC Auto (Bld) Ordered By: Daniele Jane on 10-25-2024 Monocytes/100 WBC (Bld) Automated monocyte % . [facility] Natriuretic peptide B [Mass/ Vol]Ordered By: Daniele Jane on 10-25-2024 Natriuretic peptide B (Bld) [Mass/Vol] BNP ser/plas High 5-100 [facility] Neutrophils Auto (Bld) [#/Vo l]Ordered By: Daniele Jane on 10-25-2024 Neutrophils (Bld) [#/Vol] Neutrophils [#/volume] in Blood by Automated count 1.8-7.7 [facility] Neutrophils/100 WBC Auto (Bl d)Ordered By: Daniele Jane on 10-25-2024 Neutrophils/100 WBC (Bld) Automated neutrophil % . [facility] No Panel InformationOrdered By: Daniele Jane on 10-25-2024 Estimated GFR (CKD-EPI) 41.704 mL/Min [facility]acy Creatinine Clearance (Chem 46.58 [facility] Nucleated erythrocytes [Pres ence] in Blood by Automated countOrdered By: Daniele Jane on 10-25-2024 Nucleated RBC Auto Ql (Bld) Nucleated erythrocytes [Presence] in Blood by Automated count 0-0.5 [facility] Partial Thromboplastin Timeo n 10-25-2024 aPTT Coag (Bld) [Time] 28.6 s Normal 25.1-36.5 [facility] Comment on above: Result Comment: A he matocrit value greater than 55% may lead to inaccurate results in coagulation testing. Patients having hematocrit values >55% require a special collection tube for coagulation studies. Please contact the laboratory at [phone] for redraw instructions. PERFORMED BY: [facility] [address] [address] PATHOLOGIST SPEECH COMMUNICATION INSTRUCTOR MAY HYDE M.D. Performed By: #### G LUMARLEN #### Point of Care testing , Platelet mean volume Auto (B ld) [Entitic vol]Ordered By: Daniele Jane on 10-25-2024 Platelet mean volume (Bld) [Entitic vol] Platelet mean volume [Entitic volume] in Blood by Automated count 6.3-10.7 [facility] Platelets Auto (Bld) [#/Vol] Ordered By: Daniele Jane on 10-25-2024 Platelets (Bld) [#/Vol] Platelets [#/volume] in Blood by Automated count Low 150-450 [facility] Potassium [Moles/volume] in Serum or PlasmaOrdered By: Daniele Jane on 10-25-2024 Potassium [Moles/Vol] Potassium [Moles/v olume] in Serum or Plasma 3.5-5.1 [facility] Prothrombin Time INRon 10-25 INR Coag (PPP) [Relative time] 1.2 {INR} Normal [facility] Comment on above: Result [...] (PPP) [Time] 13.5 s High 9.0-12.9 [facility] Comment on above: Result Comment: A he matocrit value greater than 55% may lead to inaccurate results in coagulation testing. Patients having hematocrit values >55% require a special collection tube for coagulation studies. Please contact the laboratory at [phone] for redraw instructions. Performed By: #### G LULS #### Point of Care testing , Prothrombin time (PT)Ordered By: Daniele Jane on 10-25-2024 PT Coag (PPP) [Time] Prothrombin time (PT) High 9.0- 12.9 [facility] Comment on above: A hematocrit value g reater than 55% may lead to inaccurate results in coagulation testing. Patients having hematocrit values >55% require a special collection tube for coagulation studies. Please contact the laboratory at [phone] for redraw instructions. RBC Auto (Bld) [#/Vol]Ordere d By: Daniele Jane on 10-25-2024 RBC (Bld) [#/Vol] Erythrocytes [#/volu me] in Blood by Automated count 3.60-5.00 [facility] Respiratory specimen influen za A virus, influenza B virus, respiratory syncytical virOrdered By: Daniele Jane on 10-25-2024 SARS-CoV-2 (COVID-19) RNA FERN+probe Ql (Unsp spec) Respiratory specimen influenza A virus, influenza B virus, respiratory syncytical vir [facility] SARS-CoV-2 (COVID-19) RNA FERN+probe Ql (Unsp spec) Respiratory specimen influenza A virus, influenza B virus, respiratory syncytical vir [facility] Serum or plasma anion gap de terminationOrdered By: Daniele Jane on 10-25-2024 Anion gap [Moles/Vol] Serum or plasma an ion gap determination 6.0-15.0 [facility] Sodium [Moles/volume] in Ser um or PlasmaOrdered By: Daniele Jane on 10-25-2024 Sodium [Moles/Vol] Sodium [Moles/volume ] in Serum or Plasma Low 136-145 [facility] Troponin I High Sensitivityo n 10-25-2024 Troponin I High Sensitivity 14.6 pg/mL Normal 0.0-15.0 [facility] Comment on above: Result Comment: PERF ORMED BY: [facility] [address] [place] [address] PATHOLOGIST SPEECH COMMUNICATION INSTRUCTOR MAY HYDE M.D. Performed By: #### G LULS #### Point of Care testing , Troponin I.cardiac [Mass/vol ume] in Serum or Plasma by Detection limit <= 0.01 ng/Ordered By: Daniele Jane on 10-25-2024 Troponin I.cardiac DL <= 0.01 ng/mL [Mass/Vol] Troponin I.cardiac [Mass/volume] in Serum or Plasma by Detection limit <= 0.01 ng/ 0.0-15.0 [facility] Urea nitrogen [Mass/volume] in Serum or PlasmaOrdered By: Daniele Jane on 10-25-2024 Urea nitrogen [Mass/Vol] Urea nitrogen [Mass/volume] in Serum or Plasma High 7-25 [facility] WBC Auto (Bld) [#/Vol]Ordere d By: Daniele Jane on 10-25-2024 WBC (Bld) [#/Vol] Leukocytes [#/volume ] in Blood by Automated count 3.8-11.6 [facility] XR chest 1V portableon 10-25 XR chest 1V portable [facility] [place] [address] [place] [address] XRay Report Signed Patient: Joe Call MR#: [id number] 0 : 1945 Acct:[id number] Age/Sex: 79 / F ADM Date: 10/25/24 Loc: ER Room: Type: [facility] ER Attending Dr: Copies to: Daniele Jane [...] Jarred Randolph M.D.10/25/2024 7:35 AM Dictation Location: [place] [address] Transcribed By: [facility] 10/25/24 0735 Dictated By: Jarred Randolph DO 10/25/24 0734 Signed By: 10/25/24 0735 Normal [facility] aPTT in Platelet poor plasma by Coagulation assayOrdered By: Daniele Jane on 10-25-2024 aPTT Coag (PPP) [Time] Activated partial thromboplastin time (aPTT) in platelet poor plasma by coagulation a 25.1-36.5 [facility] Comment on above: A hematocrit value g reater than 55% may lead to inaccurate results in coagulation testing. Patients having hematocrit values >55% require a special collection tube for coagulation studies. Please contact the laboratory at [phone] for redraw instructions. Appearance of UrineOrdered B y: Zhang Norwood on 10-22-2024 Appearance (U) Urine appearance Abnormal Clear [facility] Bacteria [Presence] in Urine by AutomatedOrdered By: Zhang Norwood on 10-22-2024 Bacteria Auto Ql (U) Bacteria [Presence] in Urine by Automated None Seen [facility] Bilirubin Test strip Ql (U)O rdered By: Zhang Norwood on 10-22-2024 Bilirubin Ql (U) Bilirubin.total [Presence] in Urine by Test strip Negative [facility] Calcium oxalate crystals [Pr esence] in Urine by Computer assisted methodOrdered By: Zhang Norwood on 10-22-2024 Calcium oxalate crystals Computer assisted Ql (U) Calcium oxalate crystals [Presence] in Urine by Computer assisted method [facility] Color Auto (U)Ordered By: Renetta Norwood on 10-22-2024 Color (U) Color of Urine by Auto Yellow Fi [facility] Dipstick and Microscopicon 1 12-23-2023 Appearance (U) Cloudy Critically abnormal Clear [facility] Comment on above: Order Comment: Name Collection Type:: Peacock Catheter Performed By: #### M G, BMP #### [facility] [address] [place] [address] [place] Bacteria,Urine None Seen Normal None Seen [facility] Comment on above: Order Comment: Name Collection Type:: Peacock Catheter Performed By: #### M G, BMP #### [facility] [address] [place] [address] [place] Bilirubin,Urine Negative Normal Negative [facility] Comment on above: Order Comment: Name Collection Type:: Peacock Catheter Performed By: #### M G, BMP #### [facility] [address] [place] [address] [place] Calcium Oxalate Crystals,Urine Rare Normal [facility] Comment on above: Order Comment: Name Collection Type:: Peacock Catheter Performed By: #### M G, BMP #### [facility] [address] [place] [address] [place] Color (U) Yellow Normal Yellow [facility] Comment on above: Order Comment: Name Collection Type:: Peacock Catheter Performed By: #### M G, BMP #### [facility] [address] [place] [address] [place] Glucose Ql (U) 30 mg/dL High Normal [facility] Comment on above: Order Comment: Name Collection Type:: Peacock Catheter Performed By: #### M G, BMP #### [facility] [address] [place] [address] [place] Hyaline Casts,Urine 0 [LPF] Normal 0-8 [facility] Comment on above: Order Comment: Name Collection Type:: Peacock Catheter Performed By: #### M G, BMP #### [facility] [address] [place] [address] [place] Ketones Ql (U) Negative Normal Negative [facility] Comment on above: Order Comment: Name Collection Type:: Peacock Catheter Performed By: #### M G, BMP #### [place] [id number] [place] Leukocyte esterase Test strip Ql (U) 1+ High Negative [facility] Comment on above: Order Comment: Name Collection Type:: Peacock Catheter Performed By: #### M G, BMP #### [place] [address] [place] Mucus,Urine Rare Normal [facility] Comment on above: Order Comment: Name Collection Type:: Peacock Catheter Result Comment: PERF ORMED BY: [place] [address] PATHOLOGIST SPEECH COMMUNICATION INSTRUCTOR MAY HYDE M.D. Performed By: #### M G, BMP #### [place] [id number] [place] Nitrite,Urine Negative Normal Negative [facility] Comment on above: Order Comment: Name Collection Type:: Peacock Catheter Performed By: #### M G, BMP #### [place] [id number] [place] Occult Blood,Urine 3+ High Negative [facility] Comment on above: Order Comment: Name Collection Type:: Peacock Catheter Result Comment: PERF ORMED BY: [place] [address] PATHOLOGIST SPEECH COMMUNICATION INSTRUCTOR MAY HYDE M.D. Performed By: #### M G, BMP #### [place] [id number] [place] pH (U) 5.5 [pH] Normal 5.0-9.0 [facility] Comment on above: Order Comment: Name Collection Type:: Peacock Catheter Performed By: #### M G, BMP #### [address] Protein (U) [Mass/Vol] 300 mg/dL High Negative [facility] Comment on above: Order Comment: Name Collection Type:: Peacock Catheter Performed By: #### M G, BMP #### [address] RBC,Urine Innumerable High 0-4 [facility] Comment on above: Order Comment: Name Collection Type:: Peacock Catheter Performed By: #### M G, BMP #### [address] Specificy [place],Urine 1.019 Normal 1.001-1.030 [facility] Comment on above: Order Comment: Name Collection Type:: Peacock Catheter Performed By: #### M G, BMP #### [place] [address] [place] Squamous Epithelial Cell,Urine 1 [HPF] Normal 0-2 [facility] Comment on above: Order Comment: Name Collection Type:: Peacock Catheter Performed By: #### M G, BMP #### [address] Urobilinogen,Urine Normal Normal Normal [facility] Comment on above: Order Comment: Name Collection Type:: Peacock Catheter Performed By: #### M G, BMP #### [place] [address] [place] WBC,Urine 10 [HPF] High 0-4 [facility] Comment on above: Order Comment: Name Collection Type:: Peacock Catheter Performed By: #### M G, BMP #### [place] [address] [place] Epithelial cells.squamous [# /area] in Urine sediment by Automated countOrdered By: Zhang Norwood on 10-22-2024 Epithelial cells.squamous Auto (Urine sed) [#/Area] Epithelial cells.squamous [#/area] in Urine sediment by Automated count 0-2 [facility] Erythrocytes [#/area] in Uri ne sediment by Automated countOrdered By: Zhang Norwood on 10-22-2024 RBC Auto (Urine sed) [#/Area] Erythrocytes [#/area] in Urine sediment by Automated count High 0-4 [facility] Glucose [Mass/volume] in Uri ne by Test stripOrdered By: Zhang Norwood on 10-22-2024 Glucose Test strip (U) [Mass/Vol] Glucose [Mass/volume] in Urine by Test strip High Normal [facility] Hemoglobin Test strip Ql (U) Ordered By: Zhang Norwood on 10-22-2024 Hemoglobin Ql (U) Hemoglobin [Presence ] in Urine by Test strip [facility] Negative [facility] Hyaline casts [#/area] in Ur ine sediment by Automated countOrdered By: Zhang Norwood on 10-22-2024 Hyaline casts Auto (Urine sed) [#/Area] Hyaline casts [#/area] in Urine sediment by Automated count 0-8 [facility] Ketones Test strip Ql (U)Ord ered By: Zhang Norwood on 10-22-2024 Ketones Ql (U) Ketones [Presence] i n Urine by Test strip Negative [facility] Leukocyte esterase [Presence ] in Urine by Test stripOrdered By: Zhang Norwood on 10-22-2024 Leukocyte esterase Test strip Ql (U) Leukocyte esterase [Presence] in Urine by Test strip [facility] Negative [facility] Leukocytes [#/area] in Urine sediment by Automated countOrdered By: Zhang Norwood on 10-22-2024 WBC Auto (Urine sed) [#/Area] Leukocytes [#/area] in Urine sediment by Automated count High 0-4 [facility] Mucus [Presence] in Urine by AutomatedOrdered By: Zhang Norwood on 10-22-2024 Mucus Auto Ql (U) Mucus [Presence] in Urine by Automated [facility] Nitrite Test strip Ql (U)Ord ered By: Zhang Norwood on 10-22-2024 Nitrite Ql (U) Nitrite [Presence] i n Urine by Test strip Negative [facility] Protein Test strip (U) [Mass /Vol]Ordered By: Zhang Norwood on 10-22-2024 Protein (U) [Mass/Vol] Protein [Mass/vol ume] in Urine by Test strip High Negative [facility] Specific gravity Test strip (U) [Rel density]Ordered By: Zhang Cuco on 10-22-2024 Specific gravity (U) [Rel density] Specific gravity of Urine by Test strip 1.001-1.030 [facility] Urine Cultureon 10-22-2024 Bacteria identified Cx Nom (U) 15,000 colonies/ml mixed bacterial skin contaminants 2 Days PERFORMED BY: [place] [address] PATHOLOGIST SPEECH COMMUNICATION INSTRUCTOR MAY HYDE M.D. Normal [facility] Comment on above: Performed By: #### M G, BMP #### [address] Urine cultureOrdered By: Hortensia Norwood on 10-22-2024 Bacteria identified Cx Nom (U) Urine culture [facility] Bacteria identified Cx Nom (U) Urine culture [facility] Urobilinogen Test strip (U) [Mass/Vol]Ordered By: Zhangnai Norwood on 10-22-2024 Urobilinogen (U) [Mass/Vol] Urobilinogen [Mass/volume] in Urine by Test strip Normal [facility] pH Test strip (U)Ordered By: Zhang Norwood on 10-22-2024 pH (U) pH of Urine by Test strip 5.0-9.0 [facility] A1C with Estimated Average Bela hansen 10-20-2024 Glucose [Mass/Vol] 292 mg/dL Normal [facility] Comment on above: Result Comment: PERF ORMED BY: [place] [address] PATHOLOGIST SPEECH COMMUNICATION INSTRUCTOR MAY HYDE M.D. Performed By: #### A 1C WT eA #### [address] [address] [facility] HbA1c (Bld) [Mass fraction] 11.8 % High 4.3-5.6 [facility] Comment on above: Result Comment: Incr eased risk for diabetes: 5.7 - 6.4 diabetes: >6.4 glycemic control for adults with diabetes: <7.0 Performed By: #### A 1C [facility] #### [address] Basic Metabolic Panelon 12-0 Anion gap [Moles/Vol] Not performed Normal 6.0-15.0 [facility] Comment on above: Performed By: #### Vandana Cramer, BMP #### [address] Calcium [Mass/Vol] 8.7 mg/dL Normal 8.6-10.3 [facility] Comment on above: Performed By: #### Vandana Cramer, BMP #### [address] Chloride [Moles/Vol] 97 mmol/L Low 98-107 [facility] Comment on above: Performed By: #### Vandana Cramer, BMP #### [address] CO2 [Moles/Vol] 26.0 mmol/L Normal 21.0-31.0 [facility] Comment on above: Performed By: #### Vandana Cramer, BMP #### [address] Creatinine [Mass/Vol] 3.06 mg/dL High 0.60-1.20 [facility] Comment on above: Performed By: #### Vandana Cramer, BMP #### [address] Creatinine Clr Calc Pharmacy 18.79 Normal [facility] Comment on above: Performed By: #### Vandana Cramer, BMP #### [address] Estimated GFR 15.067 mL/Min Normal [facility] Comment on above: Performed By: #### Vandana Cramer, BMP #### [address] Glucose [Mass/Vol] 159 mg/dL Significant change up 70-100 [facility] Comment on above: Result Comment: [place] Glucose Reference Range is dependent on time and content of last meal. Glucose of more than 200 mg/dL in a nonstressed, ambulatory subject supports the diagnosis of Diabetes Mellitus. ADA recommended reference range Performed By: #### M Bela, BMP #### [facility] [address] Potassium Normal 3.5-5.1 [facility] Comment on above: Result Comment: Spec imen hemolyzed, redraw requested Performed By: #### M Bela, BMP #### [facility] [address] Sodium Normal 136-145 [facility] Comment on above: Result Comment: Spec imen hemolyzed, redraw requested Performed By: #### Vandana Cramer, BMP #### [facility] [address] Urea nitrogen [Mass/Vol] 91 mg/dL High 7-25 [facility] Comment on above: Performed By: #### Vandana Cramer, BMP #### [facility] [address] Blood estimated average gluc ose determination by estimation from glycated hemoglobinOrdered By: Kavin Escobar on 10-20-2024 Average glucose Estimated from glycated hemoglobin (Bld) [Mass/Vol] Glucose mean value [Mass/volume] in Blood Estimated from glycated hemoglobin [facility] Calcium [Mass/volume] in Ser um or PlasmaOrdered By: Mauri Chavira on 10-20-2024 Calcium [Mass/Vol] Calcium [Mass/volume ] in Serum or Plasma 8.6-10.3 [facility] Carbon dioxide, total [Moles /volume] in Serum or PlasmaOrdered By: Mauri Chavira on 10-20-2024 CO2 [Moles/Vol] Carbon dioxide, tota l [Moles/volume] in Serum or Plasma 21.0-31.0 [facility] Chloride [Moles/volume] in S oziel or PlasmaOrdered By: Mauri Chavira on 10-20-2024 Chloride [Moles/Vol] Chloride [Moles/vol ume] in Serum or Plasma Low 98-107 [facility] Creatinine [Mass/volume] in Serum or PlasmaOrdered By: Mauri Chavira on 10-20-2024 Creatinine [Mass/Vol] Creatinine [Mass/v olume] in Serum or Plasma High 0.60-1.20 [facility] Glucose Glucometer (BldC) [M ass/Vol]Ordered By: Kavin Escobar on 10-20-2024 Glucose [Mass/Vol] Capillary blood gluc ose measurement by glucometer (mass/volume) [facility] Comment on above: Random Glucose Refer ence Range is dependent on time and content of last meal. Glucose of more than 200 mg/dL in a nonstressed, ambulatory subject supports the diagnosis of Diabetes Mellitus. Glucose Poct Glucometerson 1 12-21-2023 Glucose [Mass/Vol] 209 mg/dL Normal [facility] Comment on above: Result Comment: [place] om Glucose Reference Range is dependent on time and content of last meal. Glucose of more than 200 mg/dL in a nonstressed, ambulatory subject supports the diagnosis of Diabetes Mellitus. PERFORMED BY: [place] [address] PATHOLOGIST SPEECH COMMUNICATION INSTRUCTOR MAY HYDE M.D. Performed By: #### C OVID19 FLU RSV, CEPHEID POS #### [facility] [address] [place] [address] Glucose [Mass/Vol] 164 mg/dL Normal [facility] Comment on above: Result Comment: [place] om Glucose Reference Range is dependent on time and content of last meal. Glucose of more than 200 mg/dL in a nonstressed, ambulatory subject supports the diagnosis of Diabetes Mellitus. PERFORMED BY: [facility] [address] [place] [address] PATHOLOGIST SPEECH COMMUNICATION INSTRUCTOR MAY HYDE M.D. Performed By: #### M G, BMP #### [facility] [address] [place] [address] Glucose [Mass/volume] in Ser um or PlasmaOrdered By: Mauri Chavira on 10-20-2024 Glucose [Mass/Vol] Glucose [Mass/volume ] in Serum or Plasma Invalid Interpretation Code 70-100 [facility] Comment on above: Delta: [id number] on [id number] recommended reference rangeRandom Glucose Reference Range is dependent on time and content of last meal. Glucose of more than 200 mg/dL in a nonstressed, ambulatory subject supports the diagnosis of Diabetes Mellitus. Hemoglobin A1c/Hemoglobin.to vinicio in BloodOrdered By: Kavin Escobar on 10-20-2024 HbA1c (Bld) [Mass fraction] Hemoglobin A1c percentage High 4.3-5.6 [facility] Comment on above: Increased risk for d iabetes: 5.7 - 6.4diabetes: >6.4glycemic control for adults with diabetes: <7.0 Magnesiumon 10-20-2024 Magnesium Normal 1.9-2.7 [facility] Comment on above: Result Comment: Spec imen hemolyzed, redraw requested PERFORMED BY: [place] [address] PATHOLOGIST SPEECH COMMUNICATION INSTRUCTOR MAY HYDE M.D. Performed By: #### M G, BMP #### [address] Magnesium [Mass/volume] in S oziel or PlasmaOrdered By: Mauri Chavira on 10-20-2024 Magnesium [Mass/Vol] Magnesium [Mass/vol ume] in Serum or Plasma 1.9-2.7 [facility] No Panel InformationOrdered By: Mauri Chavira on 10-20-2024 Estimated GFR (CKD-EPI) 15.067 mL/Min [facility] Creatinine Clearance (Chem 18.79 [facility] Potassium [Moles/volume] in Serum or PlasmaOrdered By: Mauri Chavira on 10-20-2024 Potassium [Moles/Vol] Potassium [Moles/v olume] in Serum or Plasma 3.5-5.1 [facility] Redraw Magnesiumon Magnesium [Mass/Vol] 1.9 mg/dL Normal 1.9-2.7 [facility] Comment on above: Result Comment: PERF ORMED BY: [place] [address] PATHOLOGIST SPEECH COMMUNICATION INSTRUCTOR MAY HYDE M.D. Performed By: #### G LULS #### Point of Care testing , Redraw Magnesium Normal 1.9-2.7 [facility] Comment on above: Result Comment: Spec imen hemolyzed, redraw requested PERFORMED BY: [place] [address] PATHOLOGIST SPEECH COMMUNICATION INSTRUCTOR MAY HYDE M.D. Performed By: #### C OVID19 FLU RSV, CEPHEID POS #### [address] Redraw Potassiumon 4 Potassium [Moles/Vol] 4.0 mmol/L Normal 3.5-5.1 [facility] Comment on above: Performed By: #### G LULS #### Point of Care testing , Redraw Potassium Normal 3.5-5.1 [facility] Comment on above: Result Comment: Spec imen hemolyzed, redraw requested Performed By: #### C OVID19 FLU RSV, CEPHEID POS #### [address] Redraw Sodiumon 10-20-2024 Sodium [Moles/Vol] 134 mmol/L Low 136-145 [facility] Comment on above: Performed By: #### C OVID19 FLU RSV, CEPHEID POS #### [address] Serum or plasma anion gap de terminationOrdered By: Mauri Chavira on 10-20-2024 Anion gap [Moles/Vol] Serum or plasma an ion gap determination [facility] Comment on above: Test not performed Sodium [Moles/volume] in Ser um or PlasmaOrdered By: Mauri Chavira on 10-20-2024 Sodium [Moles/Vol] Sodium [Moles/volume ] in Serum or Plasma Low 136-145 [facility] Urea nitrogen [Mass/volume] in Serum or PlasmaOrdered By: Mauri Chavira on 10-20-2024 Urea nitrogen [Mass/Vol] Urea nitrogen [Mass/volume] in Serum or Plasma High 7-25 [facility] Basic Metabolic Panelon 12-0 Anion gap [Moles/Vol] 14.7 mmol/L Normal 6.0-15.0 [facility] Comment on above: Performed By: #### Vandana G, BMP #### [facility] [address] Calcium [Mass/Vol] 9.1 mg/dL Normal 8.6-10.3 [facility] Comment on above: Performed By: #### Vandana G, BMP #### [facility] [address] [place] [address] [place] Chloride [Moles/Vol] 95 mmol/L Low 98-107 [facility] Comment on above: Performed By: #### Vandana G, BMP #### [facility] [address] CO2 [Moles/Vol] 28.6 mmol/L Normal 21.0-31.0 [facility] Comment on above: Performed By: #### Vandana G, BMP #### [facility] [address] [place] [address] [place] Creatinine [Mass/Vol] 2.71 mg/dL Significan t change up 0.60-1.20 [facility] Comment on above: Performed By: #### Vandana G, BMP #### [facility] [address] [place] [address] [place] Creatinine Clr Calc Pharmacy 21.49 Normal [facility] Comment on above: Performed By: #### Vandana G, BMP #### [facility] [address] [place] [id number] [place] Estimated GFR 17.432 mL/Min Normal [facility] Comment on above: Performed By: #### Vandana G, BMP #### [facility] [address] [place] [id number] [facility] Glucose [Mass/Vol] 288 mg/dL High 70-100 [facility] Comment on above: Result Comment: [facility] Glucose Reference Range is dependent on time and content of last meal. Glucose of more than 200 mg/dL in a nonstressed, ambulatory subject supports the diagnosis of Diabetes Mellitus. ADA recommended reference range Performed By: #### M G, BMP #### [address] Potassium [Moles/Vol] 4.3 mmol/L Normal 3.5-5.1 [facility] Comment on above: Performed By: #### M G, BMP #### [address] Sodium [Moles/Vol] 134 mmol/L Low 136-145 [facility] Comment on above: Performed By: #### M G, BMP #### [address] Urea nitrogen [Mass/Vol] 77 mg/dL High 7-25 [facility] Comment on above: Performed By: #### M G, BMP #### [address] Glucose Poct Glucometerson 1 12-20-2023 Glucose [Mass/Vol] 222 mg/dL Normal [facility] Comment on above: Result Comment: [facility] Glucose Reference Range is dependent on time and content of last meal. Glucose of more than 200 mg/dL in a nonstressed, ambulatory subject supports the diagnosis of Diabetes Mellitus. PERFORMED BY: [place] [address] PATHOLOGIST SPEECH COMMUNICATION INSTRUCTOR MAY HYDE M.D. Performed By: #### G LULS #### Point of Care testing , Glucose [Mass/Vol] 306 mg/dL Normal [facility] Comment on above: Result Comment: [facility] Glucose Reference Range is dependent on time and content of last meal. Glucose of more than 200 mg/dL in a nonstressed, ambulatory subject supports the diagnosis of Diabetes Mellitus. PERFORMED BY: [place] [address] PATHOLOGIST SPEECH COMMUNICATION INSTRUCTOR MAY HYDE M.D. Performed By: #### C OVID19 FLU RSV, CEPHEID POS #### [place] [address] Glucose [Mass/Vol] 342 mg/dL Normal [facility] Comment on above: Result Comment: [place] om Glucose Reference Range is dependent on time and content of last meal. Glucose of more than 200 mg/dL in a nonstressed, ambulatory subject supports the diagnosis of Diabetes Mellitus. PERFORMED BY: [place] [address] PATHOLOGIST SPEECH COMMUNICATION INSTRUCTOR MAY HYDE M.D. Performed By: #### Vandana Cramer, BMP #### [address] Glucose [Mass/Vol] 267 mg/dL Normal [facility] Comment on above: Result Comment: [place] Glucose Reference Range is dependent on time and content of last meal. Glucose of more than 200 mg/dL in a nonstressed, ambulatory subject supports the diagnosis of Diabetes Mellitus. PERFORMED BY: [place] [address] PATHOLOGIST SPEECH COMMUNICATION INSTRUCTOR MAY HYDE M.D. Performed By: #### Vandana Cramer, BMP #### [address] Magnesiumon 10-19-2024 Magnesium [Mass/Vol] 2.0 mg/dL Normal 1.9-2.7 [facility] Comment on above: Result Comment: PERF ORMED BY: [place] [address] PATHOLOGIST SPEECH COMMUNICATION INSTRUCTOR MAY HYDE M.D. Performed By: #### Vandana Cramer, BMP #### [address] Basic Metabolic Panelon 12- Anion gap [Moles/Vol] 15.4 mmol/L High 6.0-15.0 [facility] Comment on above: Order Comment: REY PARKER NOTIFIED. SMB 0442. Performed By: #### Vandana Cramer, KAREN, TSH3, T4F #### [place] [address] [place] Calcium [Mass/Vol] 9.5 mg/dL Normal 8.6-10.3 [facility] Comment on above: Order Comment: REY PARKER NOTIFIED. SMB 0442. Performed By: #### KAREN Hansen, TSH3, T4F #### [facility] [address] Chloride [Moles/Vol] 97 mmol/L Low 98-107 [facility] Comment on above: Order Comment: REY PARKER NOTIFIED. SMB 0442. Performed By: #### Vandana Cramer, KAREN, TSH3, T4F #### [facility] [address] CO2 [Moles/Vol] 29.7 mmol/L Normal 21.0-31.0 [facility] Comment on above: Order Comment: REY PARKER NOTIFIED. SMB 0442. Performed By: #### KAREN Hansen, TSH3, T4F #### [facility] [address] Creatinine [Mass/Vol] 1.81 mg/dL High 0.60-1.20 [facility] Comment on above: Order Comment: REY PARKER NOTIFIED. SMB 0442. Performed By: #### KAREN Hansen, TSH3, T4F #### [facility] [address] [place], [place] [id number] [facility] Creatinine Clr Calc Pharmacy 32.95 Normal [facility] Comment on above: Order Comment: REY PARKER NOTIFIED. SMB 0442. Performed By: #### Vandana Cramer, KAREN, TSH3, T4F #### [facility] [address] Estimated GFR 28.294 mL/Min Normal [facility] Comment on above: Order Comment: REY PARKER NOTIFIED. SMB 0442. Performed By: #### Vandana Cramer, BMP, TSH3, T4F #### [facility] [address] [place] [id number] [facility] Glucose [Mass/Vol] 220 mg/dL High 70-100 [facility] Comment on above: Order Comment: REY PARKER NOTIFIED. SMB 0442. Result Comment: [facility] Glucose Reference Range is dependent on time and content of last meal. Glucose of more than 200 mg/dL in a nonstressed, ambulatory subject supports the diagnosis of Diabetes Mellitus. ADA recommended reference range Performed By: #### M G, BMP, TSH3, T4F #### [facility] [address] Potassium [Moles/Vol] 4.1 mmol/L Normal 3.5-5.1 [facility] Comment on above: Order Comment: REY PARKER NOTIFIED. SMB 0442. Performed By: #### M G, BMP, TSH3, T4F #### [address] Sodium [Moles/Vol] 138 mmol/L Normal 136-145 [facility] Comment on above: Order Comment: REY PARKER NOTIFIED. SMB 0442. Performed By: #### M G, BMP, TSH3, T4F #### [address] Urea nitrogen [Mass/Vol] 66 mg/dL High 7-25 [facility] Comment on above: Order Comment: REY PARKER NOTIFIED. SMB 0442. Performed By: #### M G, BMP, TSH3, T4F #### [address] Free T4 (Free Thyroxine)on 1 12-19-2023 Free T4 [Mass/Vol] 1.26 ng/dL High 0.61-1.12 [facility] Comment on above: Order Comment: REY PARKER NOTIFIED. SMB 0442. Performed By: #### C OVID19 FLU RSV, CEPHEID POS #### [address] Glucose Poct Glucometerson 12-19-2023 Glucose [Mass/Vol] 329 mg/dL Normal [facility] Comment on above: Result Comment: [place] [facility] Glucose Reference Range is dependent on time and content of last meal. Glucose of more than 200 mg/dL in a nonstressed, ambulatory subject supports the diagnosis of Diabetes Mellitus. PERFORMED BY: [place] [address] PATHOLOGIST SPEECH COMMUNICATION INSTRUCTOR MAY HYDE M.D. Performed By: #### Vandana Cramer, BMP #### [place] [address] [place] Glucose [Mass/Vol] 210 mg/dL Normal [facility] Comment on above: Result Comment: [place] om Glucose Reference Range is dependent on time and content of last meal. Glucose of more than 200 mg/dL in a nonstressed, ambulatory subject supports the diagnosis of Diabetes Mellitus. PERFORMED BY: [place] [address] PATHOLOGIST SPEECH COMMUNICATION INSTRUCTOR MAY HYDE M.D. Performed By: #### C OVID19 FLU RSV, CEPHEID POS #### [place] [address] [place] Glucose [Mass/Vol] 251 mg/dL Normal [facility] Comment on above: Result Comment: [place] [facility] Glucose Reference Range is dependent on time and content of last meal. Glucose of more than 200 mg/dL in a nonstressed, ambulatory subject supports the diagnosis of Diabetes Mellitus. PERFORMED BY: [place] [address] PATHOLOGIST SPEECH COMMUNICATION INSTRUCTOR MAY HYDE M.D. Performed By: #### C OVID19 FLU RSV, CEPHEID POS #### [place] [address] [place] Glucose [Mass/Vol] 207 mg/dL Normal [facility] Comment on above: Result Comment: [place] Glucose Reference Range is dependent on time and content of last meal. Glucose of more than 200 mg/dL in a nonstressed, ambulatory subject supports the diagnosis of Diabetes Mellitus. PERFORMED BY: [place] [address] PATHOLOGIST SPEECH COMMUNICATION INSTRUCTOR MAY HYDE M.D. Performed By: #### Vandana Cramer, BMP #### [address] Glucose [Mass/Vol] 188 mg/dL Normal [facility] Comment on above: Result Comment: [facility] Glucose Reference Range is dependent on time and content of last meal. Glucose of more than 200 mg/dL in a nonstressed, ambulatory subject supports the diagnosis of Diabetes Mellitus. PERFORMED BY: [place] [address] PATHOLOGIST SPEECH COMMUNICATION INSTRUCTOR MAY HYDE M.D. Performed By: #### Vandana G, BMP #### [address] Magnesiumon 10-18-2024 Magnesium [Mass/Vol] 2.1 mg/dL Normal 1.9-2.7 [facility] Comment on above: Order Comment: REY PARKER NOTIFIED. SMB 0442. Performed By: #### C OVID19 FLU RSV, CEPHEID POS #### [address] Serum or plasma thyroperoxid ase antibody assay (units/volume)Ordered By: Mauri Chavira on 10-18-2024 TPO Ab Qn Serum or plasma thyroperoxidase antibody assay (units/volume) 0-34 [facility] Comment on above: Performed at: CB - [facility] [address] [id number] Director: Dimitri Landis PhD, Phone: [phone] Thyroid Peroxidase Antibodie son 10-18-2024 Thyroid Peroxidase Antibodies <9 Normal 0-34 [facility] Comment on above: Order Comment: REY PARKER NOTIFIED. SMB 0442. Result Comment: Perf ormed at: CB - [facility] [place] [id number] Insurance Loss Assessor: Dimitri Landis PhD, Phone: [phone] PERFORMED BY: [place] [address] PATHOLOGIST SPEECH COMMUNICATION INSTRUCTOR MAY HYED M.D. Performed By: #### M G, BMP #### [address] Thyroid Stimulating Hormoneo n 10-18-2024 TSH Qn 1.86 m[IU]/L Normal 0.45-5.33 [facility] Comment on above: Order Comment: REY PARKER NOTIFIED. SMB 2963. Result Comment: PERF ORMED BY: [facility] [address] [facility] [place] [address] PATHOLOGIST SPEECH COMMUNICATION INSTRUCTOR MAY HYDE M.D. Performed By: #### C OVID19 FLU RSV, CEPHEID POS #### [facility] [address] Thyrotropin [Units/volume] i n Serum or PlasmaOrdered By: Mauri Chavira on 10-18-2024 TSH Qn Thyrotropin [Units/volume] in Serum or Plasma 0.45-5.33 [facility] Thyroxine (T4) free [Mass/vo lume] in Serum or PlasmaOrdered By: Mauri Chavira on 10-18-2024 Free T4 [Mass/Vol] Thyroxine (T4) free [Mass/volume] in Serum or Plasma High 0.61-1.12 [facility] Alanine aminotransferase [En zymatic activity/volume] in Serum or PlasmaOrdered By: Mauri Chavira on 10-17-2024 ALT [Catalytic activity/Vol] Alanine aminotransferase [Enzymatic activity/volume] in Serum or Plasma 7-52 [facility] Albumin [Mass/volume] in Ser um or Plasma by Bromocresol green (BCG) dye binding methoOrdered By: Mauri Chavira on 10-17-2024 Albumin BCG dye [Mass/Vol] Albumin [Mass/volume] in Serum or Plasma by Bromocresol green (BCG) dye binding metho 3.5-5.7 [facility] Alkaline phosphatase [Enzyma tic activity/volume] in Serum or PlasmaOrdered By: Mauri Chavira on 10-17-2024 ALP [Catalytic activity/Vol] Alkaline phosphatase [Enzymatic activity/volume] in Serum or Plasma 34-104 [facility] Aspartate aminotransferase [ Enzymatic activity/volume] in Serum or PlasmaOrdered By: Mauri Chavira on 10-17-2024 AST [Catalytic activity/Vol] Aspartate aminotransferase [Enzymatic activity/volume] in Serum or Plasma 13-39 [facility] Basophils Auto (Bld) [#/Vol] Ordered By: Mauri Chavira on 10-17-2024 Basophils (Bld) [#/Vol] Automated basophil count 0.0-0.2 [facility] Basophils/100 WBC Auto (Bld) Ordered By: Mauri Chavira on 10-17-2024 Basophils/100 WBC (Bld) Automated basophil % . [facility] Bilirubin.total [Mass/volume ] in Serum or PlasmaOrdered By: Mauri Chavira on 10-17-2024 Bilirubin [Mass/Vol] Bilirubin.total [Mass/volume] in Serum or Plasma 0.3-1.0 [facility] Complete Blood Count Auto Di ffon 10-17-2024 Basophils (Bld) [#/Vol] 0.1 10*3/uL Normal 0.0-0.2 [facility] Comment on above: Result Comment: PERF ORMED BY: [place] [address] PATHOLOGIST SPEECH COMMUNICATION INSTRUCTOR MAY HYDE M.D. Performed By: #### C OVID19 FLU RSV, CEPHEID POS #### [address] Basophils/100 WBC (Bld) 0.8 % Normal . [facility] Comment on above: Performed By: #### C OVID19 FLU RSV, CEPHEID POS #### [place] [address] [place] Eosinophils (Bld) [#/Vol] 0.1 10*3/uL Normal 0.0-0.45 [facility] Comment on above: Performed By: #### C OVID19 FLU RSV, CEPHEID POS #### [place] [address] [place] Eosinophils/100 WBC (Bld) 0.7 % Normal . [facility] Comment on above: Performed By: #### C OVID19 FLU RSV, CEPHEID POS #### [place] [address] [place] Erythrocyte distribution width (RBC) [Ratio] 15.4 % High 11.9-15.3 [facility] Comment on above: Performed By: #### C OVID19 FLU RSV, CEPHEID POS #### [address] Hematocrit (Bld) [Volume fraction] 40.4 % Normal 34.0-46.4 [facility] Comment on above: Performed By: #### C OVID19 FLU RSV, CEPHEID POS #### [address] Hemoglobin (Bld) [Mass/Vol] 13.3 g/dL Normal 11.8-15.4 [facility] Comment on above: Performed By: #### C OVID19 FLU RSV, CEPHEID POS #### [address] Lymphocytes (Bld) [#/Vol] 1.4 10*3/uL Normal 1.00-4.8 [facility] Comment on above: Performed By: #### C OVID19 FLU RSV, CEPHEID POS #### [address] Lymphocytes/100 WBC (Bld) 15.2 % Normal . [facility] Comment on above: Performed By: #### C OVID19 FLU RSV, CEPHEID POS #### [address] MCH (RBC) [Entitic mass] 29.3 pg Normal 24.7-34.3 [facility] Comment on above: Performed By: #### C OVID19 FLU RSV, CEPHEID POS #### [address] MCV (RBC) [Entitic vol] 88.8 fL Normal 80-100 [facility] Comment on above: Performed By: #### C OVID19 FLU RSV, CEPHEID POS #### [address] Mean Corpuscular HGB Conc 33.0 g/dL Normal 32.0-35.0 [facility] Comment on above: Performed By: #### C OVID19 FLU RSV, CEPHEID POS #### [address] Monocytes (Bld) [#/Vol] 0.7 10*3/uL Normal 0.0-0.8 [facility] Comment on above: Performed By: #### C OVID19 FLU RSV, CEPHEID POS #### [address] Monocytes/100 WBC (Bld) 7.2 % Normal . [facility] Comment on above: Performed By: #### C OVID19 FLU RSV, CEPHEID POS #### [address] Neutrophils (Bld) [#/Vol] 7.0 10*3/uL Normal 1.8-7.7 [facility] Comment on above: Performed By: #### C OVID19 FLU RSV, CEPHEID POS #### [address] Neutrophils/100 WBC (Bld) 76.1 % Normal . [facility] Comment on above: Performed By: #### C OVID19 FLU RSV, CEPHEID POS #### [address] NRBC% 0.0 /100{WBC} Normal 0-0.5 [facility] Comment on above: Performed By: #### C OVID19 FLU RSV, CEPHEID POS #### [address] Platelet mean volume (Bld) [Entitic vol] 9.5 fL Normal 6.3-10.7 [facility] Comment on above: Performed By: #### C OVID19 FLU RSV, CEPHEID POS #### [address] Platelets (Bld) [#/Vol] 183 10*3/uL Normal 150-450 [facility] Comment on above: Performed By: #### C OVID19 FLU RSV, CEPHEID POS #### [address] RBC (Bld) [#/Vol] 4.55 10*6/uL Normal 3.60-5.00 [facility] Comment on above: Performed By: #### C OVID19 FLU RSV, CEPHEID POS #### [address] WBC (Bld) [#/Vol] 9.2 10*3/uL Normal 3.8-11.6 [facility] Comment on above: Performed By: #### C OVID19 FLU RSV, CEPHEID POS #### [address] Comprehensive Metabolic Pane daniele 10-17-2024 Albumin [Mass/Vol] 3.5 g/dL Normal 3.5-5.7 [facility] Comment on above: Performed By: #### C OVID19 FLU RSV, CEPHEID POS #### [address] Albumin/Globulin [Mass ratio] 0.9 {ratio} Normal [facility] Comment on above: Performed By: #### C OVID19 FLU RSV, CEPHEID POS #### [address] ALP [Catalytic activity/Vol] 99 U/L Normal 34-104 [facility] Comment on above: Performed By: #### C OVID19 FLU RSV, CEPHEID POS #### [address] ALT [Catalytic activity/Vol] 42 U/L Normal 7-52 [facility] Comment on above: Performed By: #### C OVID19 FLU RSV, CEPHEID POS #### [address] Anion gap [Moles/Vol] 14.7 mmol/L Normal 6.0-15.0 Th e [facility] Comment on above: Performed By: #### C OVID19 FLU RSV, CEPHEID POS #### [address] AST [Catalytic activity/Vol] 35 U/L Normal 13-39 [facility] Comment on above: Performed By: #### C OVID19 FLU RSV, CEPHEID POS #### [address] Bilirubin [Mass/Vol] 0.6 mg/dL Normal 0.3-1.0 [facility] Comment on above: Performed By: #### C OVID19 FLU RSV, CEPHEID POS #### [address] Calcium [Mass/Vol] 9.6 mg/dL Normal 8.6-10.3 The [facility] Comment on above: Performed By: #### C OVID19 FLU RSV, CEPHEID POS #### [address] Chloride [Moles/Vol] 99 mmol/L Normal 98-107 [facility] Comment on above: Performed By: #### C OVID19 FLU RSV, CEPHEID POS #### [address] CO2 [Moles/Vol] 25.3 mmol/L Normal 21.0-31.0 The [facility] Comment on above: Performed By: #### C OVID19 FLU RSV, CEPHEID POS #### [address] Creatinine [Mass/Vol] 1.99 mg/dL High 0.60-1.20 [facility] Comment on above: Performed By: #### C OVID19 FLU RSV, CEPHEID POS #### [address] Creatinine Clr Calc Pharmacy 29.98 Normal [facility] Comment on above: Performed By: #### C OVID19 FLU RSV, CEPHEID POS #### [address] Estimated GFR 25.252 mL/Min Normal [facility] Comment on above: Performed By: #### C OVID19 FLU RSV, CEPHEID POS #### [address] Globulin (S) [Mass/Vol] 3.9 g/dL Normal [facility] Comment on above: Performed By: #### C OVID19 FLU RSV, CEPHEID POS #### [address] Glucose [Mass/Vol] 228 mg/dL High 70-100 The [facility] Comment on above: Result Comment: [facility] Glucose Reference Range is dependent on time and content of last meal. Glucose of more than 200 mg/dL in a nonstressed, ambulatory subject supports the diagnosis of Diabetes Mellitus. ADA recommended reference range Performed By: #### C OVID19 FLU RSV, CEPHEID POS #### [address] Potassium [Moles/Vol] 5.0 mmol/L Normal 3.5-5.1 [facility] Comment on above: Performed By: #### C OVID19 FLU RSV, CEPHEID POS #### [address] Protein [Mass/Vol] 7.4 g/dL Normal 6.4-8.9 The [facility] Comment on above: Performed By: #### C OVID19 FLU RSV, CEPHEID POS #### [address] Sodium [Moles/Vol] 134 mmol/L Low 136-145 The [facility] Comment on above: Performed By: #### C OVID19 FLU RSV, CEPHEID POS #### [address] Urea nitrogen [Mass/Vol] 67 mg/dL High 7-25 [facility] Comment on above: Performed By: #### C OVID19 FLU RSV, CEPHEID POS #### [place] [address] [place] Eosinophils Auto (Bld) [#/Vo l]Ordered By: Mauri Chavira on 10-17-2024 Eosinophils (Bld) [#/Vol] Automated eosinophil count 0.0-0.45 [facility] Eosinophils/100 WBC Auto (Bl d)Ordered By: Mauri Chavira on 10-17-2024 Eosinophils/100 WBC (Bld) Automated eosinophil % . [facility] Erythrocyte distribution wid th Auto (RBC) [Ratio]Ordered By: Mauri Chavira on 10-17-2024 Erythrocyte distribution width (RBC) [Ratio] Erythrocyte distribution width [Ratio] by Automated count High 11.9-15.3 [facility] Globulin Calc (S) [Mass/Vol] Ordered By: Mauri Chavira on 10-17-2024 Globulin (S) [Mass/Vol] Serum globulin measurement by calculation (mass/volume) [facility] Glucose Poct Glucometerson 1 12-18-2023 Glucose [Mass/Vol] 245 mg/dL Normal The [facility] Comment on above: Result Comment: [facility] Glucose Reference Range is dependent on time and content of last meal. Glucose of more than 200 mg/dL in a nonstressed, ambulatory subject supports the diagnosis of Diabetes Mellitus. PERFORMED BY: [place] [address] PATHOLOGIST SPEECH COMMUNICATION INSTRUCTOR MAY HYDE M.D. Performed By: #### C OVID19 FLU RSV, CEPHEID POS #### [facility] [address] [place] [address] Glucose [Mass/Vol] 335 mg/dL Normal The [facility] Comment on above: Result Comment: [facility] Glucose Reference Range is dependent on time and content of last meal. Glucose of more than 200 mg/dL in a nonstressed, ambulatory subject supports the diagnosis of Diabetes Mellitus. PERFORMED BY: [place] [address] PATHOLOGIST SPEECH COMMUNICATION INSTRUCTOR MAY HYDE M.D. Performed By: #### M G, BMP #### [address] Glucose [Mass/Vol] 324 mg/dL Normal [facility] Comment on above: Result Comment: [facility] Glucose Reference Range is dependent on time and content of last meal. Glucose of more than 200 mg/dL in a nonstressed, ambulatory subject supports the diagnosis of Diabetes Mellitus. PERFORMED BY: [facility] [address] [place] [address] PATHOLOGIST SPEECH COMMUNICATION INSTRUCTOR MAY HYDE M.D. Performed By: #### G MICK #### Point of Care testing , Glucose [Mass/Vol] 253 mg/dL Normal The [facility] Comment on above: Result Comment: [place] Glucose Reference Range is dependent on time and content of last meal. Glucose of more than 200 mg/dL in a nonstressed, ambulatory subject supports the diagnosis of Diabetes Mellitus. PERFORMED BY: [facility] [address] [place] [address] PATHOLOGIST SPEECH COMMUNICATION INSTRUCTOR MAY HYDE M.D. Performed By: #### M Bela, BMP #### [address] Hematocrit Auto (Bld) [Volum e fraction]Ordered By: Mauri Chavira on 10-17-2024 Hematocrit (Bld) [Volume fraction] Hematocrit [Volume Fraction] of Blood by Automated count 34.0-46.4 [facility] Hemoglobin [Mass/volume] in BloodOrdered By: Mauri Chavira on 10-17-2024 Hemoglobin (Bld) [Mass/Vol] Hemoglobin [Mass/volume] in Blood 11.8-15.4 [facility] Leukocytes [#/volume] correc gali for nucleated erythrocytes in Blood by Automated counOrdered By: Mauri Chavira on 10-17-2024 WBC corrected for nucl RBC Auto (Bld) [#/Vol] Leukocytes [#/volume] corrected for nucleated erythrocytes in Blood by Automated coun 3.8-11.6 [facility] Lymphocytes Auto (Bld) [#/Vo l]Ordered By: Mauri Chavira on 10-17-2024 Lymphocytes (Bld) [#/Vol] Lymphocytes [#/volume] in Blood by Automated count 1.00-4.8 [facility] Lymphocytes/100 WBC Auto (Bl d)Ordered By: Mauri Chavira on 10-17-2024 Lymphocytes/100 WBC (Bld) Lymphocytes/100 leukocytes in Blood by Automated count . [facility] MCH Auto (RBC) [Entitic mass ]Ordered By: Mauri Chavira on 10-17-2024 MCH (RBC) [Entitic mass] MCH [Entitic mass] by Automated count 24.7-34.3 [facility] MCHC Auto (RBC) [Mass/Vol]Or dered By: Mauri Chavira on 10-17-2024 MCHC (RBC) [Mass/Vol] MCHC [Mass/volume] by Automated count 32.0-35.0 [facility] MCV Auto (RBC) [Entitic vol] Ordered By: Mauri Chavira on 10-17-2024 MCV (RBC) [Entitic vol] MCV [Entitic volume] by Automated count 80-100 [facility] Magnesiumon 10-17-2024 Magnesium [Mass/Vol] 1.6 mg/dL Low 1.9-2.7 [facility] Comment on above: Result Comment: PERF ORMED BY: [facility] [address] [facility] [place] [address] PATHOLOGIST SPEECH COMMUNICATION INSTRUCTOR MAY HYDE M.D. Performed By: #### C OVID19 FLU RSV, CEPHEID POS #### [facility] [address] Monocytes Auto (Bld) [#/Vol] Ordered By: Mauri Chavira on 10-17-2024 Monocytes (Bld) [#/Vol] Automated blood monocyte count 0.0-0.8 [facility] Monocytes/100 WBC Auto (Bld) Ordered By: Mauri Chavira on 10-17-2024 Monocytes/100 WBC (Bld) Automated monocyte % . [facility] Neutrophils Auto (Bld) [#/Vo l]Ordered By: Mauri Chavira on 10-17-2024 Neutrophils (Bld) [#/Vol] Neutrophils [#/volume] in Blood by Automated count 1.8-7.7 [facility] Neutrophils/100 WBC Auto (Bl d)Ordered By: Mauri Chavira on 10-17-2024 Neutrophils/100 WBC (Bld) Automated neutrophil % . [facility] Nucleated erythrocytes [Pres ence] in Blood by Automated countOrdered By: Mauri Chavira on 10-17-2024 Nucleated RBC Auto Ql (Bld) Nucleated erythrocytes [Presence] in Blood by Automated count 0-0.5 [facility] Platelet mean volume Auto (B ld) [Entitic vol]Ordered By: Mauri Chavira on 10-17-2024 Platelet mean volume (Bld) [Entitic vol] Platelet mean volume [Entitic volume] in Blood by Automated count 6.3-10.7 [facility] Platelets Auto (Bld) [#/Vol] Ordered By: Mauri Chavira on 10-17-2024 Platelets (Bld) [#/Vol] Platelets [#/volume] in Blood by Automated count 150-450 [facility] Protein [Mass/volume] in Ser um or PlasmaOrdered By: Mauri Chavira on 10-17-2024 Protein [Mass/Vol] Protein [Mass/volume ] in Serum or Plasma 6.4-8.9 [facility] RBC Auto (Bld) [#/Vol]Ordere d By: Mauri Chavira on 10-17-2024 RBC (Bld) [#/Vol] Erythrocytes [#/volu me] in Blood by Automated count 3.60-5.00 [facility] Serum or plasma albumin/glob ulin mass ratioOrdered By: Mauri Chavira on 10-17-2024 Albumin/Globulin [Mass ratio] Serum or plasma albumin/globulin mass ratio [facility] WBC Auto (Bld) [#/Vol]Ordere d By: Mauri Chavira on 10-17-2024 WBC (Bld) [#/Vol] Leukocytes [#/volume ] in Blood by Automated count 3.8-11.6 [facility] B-Type Natriuretic Peptideon 10-16-2024 Natriuretic peptide B (Bld) [Mass/Vol] 547.0 pg/mL High 5-100 [facility] Comment on above: Result Comment: PERF ORMED BY: [place] [address] PATHOLOGIST SPEECH COMMUNICATION INSTRUCTOR MAY HYDE M.D. Performed By: #### A 1C [facility] #### [address] Basic Metabolic Panelon 12-0 Anion gap [Moles/Vol] 18.1 mmol/L High 6.0-15.0 Th e [facility] Comment on above: Performed By: #### Vandana Cramer, BMP #### [address] Calcium [Mass/Vol] 9.7 mg/dL Significant change down 8.6-10.3 [facility] Comment on above: Performed By: #### Vandana Cramer, BMP #### [address] Chloride [Moles/Vol] 100 mmol/L Normal 98-107 [facility] Comment on above: Performed By: #### Vandana Cramer, BMP #### [address] CO2 [Moles/Vol] 23.3 mmol/L Normal 21.0-31.0 [facility] Comment on above: Performed By: #### Vandana Cramer, BMP #### [address] Creatinine [Mass/Vol] 2.14 mg/dL High 0.60-1.20 [facility] Comment on above: Performed By: #### Vandana Cramer, BMP #### [address] Creatinine Clr Calc Pharmacy 27.88 Normal [facility] Comment on above: Result Comment: PERF ORMED BY: [place] [address] PATHOLOGIST SPEECH COMMUNICATION INSTRUCTOR MAY HYDE M.D. Performed By: #### Vandana Cramer, BMP #### [address] Estimated GFR 23.142 mL/Min Normal [facility] Comment on above: Performed By: #### Vandana G, BMP #### [address] Glucose [Mass/Vol] 301 mg/dL High 70-100 [facility] Comment on above: Result Comment: [place] [facility] Glucose Reference Range is dependent on time and content of last meal. Glucose of more than 200 mg/dL in a nonstressed, ambulatory subject supports the diagnosis of Diabetes Mellitus. ADA recommended reference range Performed By: #### Vandana Cramer, BMP #### [facility] [address] Potassium [Moles/Vol] 6.4 mmol/L Off scale high 3.5-5.1 [facility] Comment on above: Result Comment: Resu lts called at 1909 on 10/16/24 Critical Result Called to and read back by: ISMA AVILA/RENETTA at: 10/16/2024 19:04:24 by:[id number] Performed By: #### Vandana Cramer, BMP #### [address] Sodium [Moles/Vol] 135 mmol/L Low 136-145 [facility] Comment on above: Performed By: #### Vandana Cramer, BMP #### [address] Urea nitrogen [Mass/Vol] 74 mg/dL High 7-25 [facility] Comment on above: Performed By: #### Vandana Cramer, BMP #### [address] Anion gap [Moles/Vol] 13.8 mmol/L Normal 6.0-15.0 Th e [facility] Comment on above: Performed By: #### A 1C [facility] eA #### [place] [address] [place] Calcium [Mass/Vol] 8.1 mg/dL Low 8.6-10.3 The [facility] Comment on above: Performed By: #### A 1C [facility] eA #### [place] [id number] [place] Chloride [Moles/Vol] 104 mmol/L Normal 98-107 [facility] Comment on above: Performed By: #### A 1C [facility] eA #### [facility] [address] [place] [id number] [place] CO2 [Moles/Vol] 21.5 mmol/L Normal 21.0-31.0 [facility] Comment on above: Performed By: #### A 1C WTH eA #### [facility] [address] [place] [address] [place] Creatinine [Mass/Vol] 2.25 mg/dL High 0.60-1.20 [facility] Comment on above: Performed By: #### A 1C W[facility] eA #### [facility] [address] [place] [address] [place] Creatinine Clr Calc Pharmacy 5.50 Normal [facility] Comment on above: Performed By: #### A 1C WTH eA #### [facility] [address] Estimated GFR 21.792 mL/Min Normal [facility] Comment on above: Performed By: #### A 1C [facility] eA #### [address] Glucose [Mass/Vol] 388 mg/dL High 70-100 [facility] Comment on above: Result Comment: [place] Glucose Reference Range is dependent on time and content of last meal. Glucose of more than 200 mg/dL in a nonstressed, ambulatory subject supports the diagnosis of Diabetes Mellitus. ADA recommended reference range Performed By: #### A 1C WT eA #### [address] Potassium [Moles/Vol] 6.3 mmol/L Off scale high 3.5-5.1 [facility] Comment on above: Result Comment: Crit ical Result Called to and read back by: LYNN KLINE at: 10/16/2024 14:01:43 by:[id number] Performed By: #### A 1C WTH eA #### [facility] [address] [place] [address] [place] Sodium [Moles/Vol] 133 mmol/L Low 136-145 [facility] Comment on above: Performed By: #### A 1C WTH eA #### [facility] [address] [place] [id number] [facility] Urea nitrogen [Mass/Vol] 73 mg/dL High 7-25 [facility] Comment on above: Performed By: #### A 1C [facility] eA #### [facility] [address] Blood carbon dioxide, total measurement by calculation (moles/volume)Ordered By: Kavin Escobar on 10-16-2024 CO2 Calc (Bld) [Moles/Vol] Blood carbon dioxide, total measurement by calculation (moles/volume) Low 23-29 [facility] Chloride (Bld) [Moles/Vol]Or dered By: Kavin Escobar on 10-16-2024 Chloride [Moles/Vol] Whole blood chlorid e measurement 98-109 [facility] Complete Blood Count Auto Di ffon 10-16-2024 Basophils (Bld) [#/Vol] 0.1 10*3/uL Normal 0.0-0.2 [facility] Comment on above: Result Comment: PERF ORMED BY: [place] [address] PATHOLOGIST SPEECH COMMUNICATION INSTRUCTOR MAY HYDE M.D. Performed By: #### A 1C [facility] eA #### [address] Basophils/100 WBC (Bld) 0.7 % Normal . [facility] Comment on above: Performed By: #### A [facility] eA #### [address] Eosinophils (Bld) [#/Vol] 0.1 10*3/uL Normal 0.0-0.45 [facility] Comment on above: Performed By: #### A 1C WT eA #### [address] Eosinophils/100 WBC (Bld) 0.6 % Normal . [facility] Comment on above: Performed By: #### A 1C [facility] eA #### [address] Erythrocyte distribution width (RBC) [Ratio] 15.2 % Normal 11.9-15.3 [facility] Comment on above: Performed By: #### A 1C WT eA #### [address] Hematocrit (Bld) [Volume fraction] 35.5 % Normal 34.0-46.4 [facility] Comment on above: Performed By: #### A 1C [facility] eA #### [address] Hemoglobin (Bld) [Mass/Vol] 11.6 g/dL Low 11.8-15.4 [facility] Comment on above: Performed By: #### A 1C [facility] eA #### [address] Lymphocytes (Bld) [#/Vol] 1.2 10*3/uL Normal 1.00-4.8 [facility] Comment on above: Performed By: #### A 1C [facility] eA #### [address] Lymphocytes/100 WBC (Bld) 12.5 % Normal . [facility] Comment on above: Performed By: #### A 1C [facility] eA #### [address] MCH (RBC) [Entitic mass] 29.0 pg Normal 24.7-34.3 [facility] Comment on above: Performed By: #### A 1C [facility] eA #### [address] MCV (RBC) [Entitic vol] 89.1 fL Normal 80-100 [facility] Comment on above: Performed By: #### A 1C [facility] eA #### [address] Mean Corpuscular HGB Conc 32.6 g/dL Normal 32.0-35.0 [facility] Comment on above: Performed By: #### A 1C WT eA #### [address] Monocytes (Bld) [#/Vol] 0.7 10*3/uL Normal 0.0-0.8 [facility] Comment on above: Performed By: #### A 1C WT eA #### [facility] [address] [place] [address] [place] Monocytes/100 WBC (Bld) 18.11 % Normal 0.00-20.00 [facility] Comment on above: Performed By: #### A 1C WT eA #### [facility] [address] [place] [address] [place] Monocytes/100 WBC (Bld) 6.8 % Normal . [facility] Comment on above: Performed By: #### A 1C [facility] eA #### [facility] [address] [place] [address] [place] Neutrophils (Bld) [#/Vol] 8.0 10*3/uL High 1.8-7.7 [facility] Comment on above: Performed By: #### A 1C WT eA #### [facility] [address] [place] [address] [place] Neutrophils/100 WBC (Bld) 79.4 % Normal . [facility] Comment on above: Performed By: #### A 1C [facility] eA #### [facility] [address] [place] [address] [place] NRBC% 0.1 /100{WBC} Normal 0-0.5 The [facility] Comment on above: Performed By: #### A 1C [facility] eA #### [facility] [address] [place] [address] [place] Platelet mean volume (Bld) [Entitic vol] 9.7 fL Normal 6.3-10.7 The formerly [facility] Comment on above: Performed By: #### A 1C WT eA #### [facility] [address] [place] [address] [place] Platelets (Bld) [#/Vol] 181 10*3/uL Normal 150-450 [facility] Comment on above: Performed By: #### A 1C WT eA #### [facility] [address] [place] [address] [place] RBC (Bld) [#/Vol] 3.98 10*6/uL Normal 3.60-5.00 The [facility] Comment on above: Performed By: #### A 1C [facility] eA #### [facility] [address] [place] [address] [facility] WBC (Bld) [#/Vol] 10.0 10*3/uL Normal 3.8-11.6 [facility] Comment on above: Performed By: #### A 1C [facility] eA #### [facility] [address] [place] [address] [facility] Creatine Kinaseon 10-16-2024 CK [Catalytic activity/Vol] 37 U/L Normal 30 [facility] Comment on above: Performed By: #### A 1C [facility] eA #### [facility] [address] [place] [address] [facility] Creatine kinase [Enzymatic a ctivity/volume] in Serum or PlasmaOrdered By: Jorge Luis Zavala on 10-16-2024 CK [Catalytic activity/Vol] Creatine kinase [Enzymatic activity/volume] in Serum or Plasma [facility] Creatinine (Bld) [Mass/Vol]O rdered By: Kavin Escobar on 10-16-2024 Creatinine [Mass/Vol] Whole blood creati nine measurement High 0.6-1.3 [facility] Comment on above: ER/ESD physician is notified/shown all ISTAT results.Critical values may be confirmed by laboratory testing ifdeemed necessary by ER attending doctor. ECG 12 lead ECGon 10-16-2024 ECG 12 lead ECG [facility] Main [place] [address] [place], [place] [id number] Electrocardiograph Report Signed Patient: Joe Call MR#: [id number] 0 : 1945 Acct:[id number] Age/Sex: 79 / F ADM Date: 10/16/24 Loc: Room: [address] [place] [address] Type: DIS IN Attending : Kavin Escobar [...] Fiona Moreno MD 1 12/24/23 151 Normal [facility] Physician [facility] ECG 12 lead ECG [facility] Main [place] [id number] Electrocardiograph Report Signed Patient: Joe Call MR#: [id number] 0 : 1945 Acct:[id number] Age/Sex: 79 / F ADM Date: 10/16/24 Loc: Room: [address] [place] [address] Type: ADM IN Attending Dr: Mauri Chavira [...] By Jorge Luis Zavala DO 1926 Normal [facility] Physician [facility] ECG 12 lead ECG [facility] Main [address] [address] Electrocardiograph Report Signed Patient: Joe Call MR#: [id number] 0 : 1945 Acct:[id number] Age/Sex: 79 / F ADM Date: 10/16/24 Loc: Room: [address] [place] [address] Type: ADM IN Attending Dr: Mauri Chavira [...] Luis Zavala DO 1926 Normal [facility] Glucose Glucometer (BldC) [M ass/Vol]Ordered By: Kavin Escobar on 10-16-2024 Glucose [Mass/Vol] Capillary blood gluc ose measurement by glucometer (mass/volume) High 70-105 [facility] Glucose Poct Glucometerson 1 12-17-2023 Glucose [Mass/Vol] 266 mg/dL Normal [facility] Comment on above: Result Comment: [facility] Glucose Reference Range is dependent on time and content of last meal. Glucose of more than 200 mg/dL in a nonstressed, ambulatory subject supports the diagnosis of Diabetes Mellitus. PERFORMED BY: [address] [place] [address] PATHOLOGIST SPEECH COMMUNICATION INSTRUCTOR MAY HYDE M.D. Performed By: #### M Bela, BMP #### [address] Hemoglobin Calc (Bld) [Mass/ Vol]Ordered By: Kavin Escobar on 10-16-2024 Hemoglobin (Bld) [Mass/Vol] Blood hemoglobin measurement by calculation (mass/volume) 12.0-17.0 [facility] INR in Platelet poor plasma by Coagulation assayOrdered By: Jorge Luis Zavala on 10-16-2024 INR Coag (PPP) [Relative time] INR in Platelet poor plasma by Coagulation assay [facility] Comment on above: INR Therapeutic Rang [...] Chloride [Moles/Vol] 104.0 mmol/L Normal 98-109 [facility] Comment on above: Performed By: #### E RBMP #### [address] Point of Care testing , CO2 [Moles/Vol] 22 mmol/L Low 23-29 [facility] Comment on above: Performed By: #### E RBMP #### [address] Point of Care testing , Creatinine [Mass/Vol] 2.3 mg/dL High 0.6-1.3 [facility] Comment on above: Result Comment: ER/E SD physician is notified/shown all ISTAT results. Critical values may be confirmed by laboratory testing if deemed necessary by ER attending doctor. Performed By: #### E RBMP #### [address] Point of Care testing , Glucose [Mass/Vol] 390 mg/dL High 70-105 [facility] Comment on above: Result Comment: PERF ORMED BY: [place] [address] PATHOLOGIST SPEECH COMMUNICATION INSTRUCTOR MAY HYDE M.D. Performed By: #### E RBMP #### [address] Point of Care testing , Hemoglobin (Bld) [Mass/Vol] 12.2 g/dL Normal 12.0-17.0 [facility] Comment on above: Performed By: #### E RBMP #### [address] Point of Care testing , ISTAT Ionized Calcium 1.11 mol/L Low 1.12-1.32 [facility] Comment on above: Performed By: #### E RBMP #### [address] Point of Care testing , Potassium [Moles/Vol] 6.4 mmol/L Off scale high 3.5-4.9 [facility] Comment on above: Performed By: #### E RBMP #### [address] Point of Care testing , Sodium [Moles/Vol] 134 mmol/L Low 138-146 [facility] Comment on above: Performed By: #### E RBMP #### [address] Point of Care testing , Urea nitrogen [Mass/Vol] 69 mg/dL High 8-26 [facility] Comment on above: Performed By: #### E RBMP #### [address] Point of Care testing , ISTAT ER Chem8+ PanelOrdered By: Kavin Escobar on 10-16-2024 Hematocrit (Bld) [Volume fraction] 36.0 % Low 38.0-51.0 [facility] Comment on above: Performed By: #### E RBMP #### [address] Point of Care testing , Magnesiumon 10-16-2024 Magnesium [Mass/Vol] 1.4 mg/dL Low 1.9-2.7 [facility] Comment on above: Result Comment: PERF ORMED BY: [address] [address] PATHOLOGIST SPEECH COMMUNICATION INSTRUCTOR MAY HYDE M.D. Performed By: #### A 1C [facility] eA #### [facility] [address] [place] [address] [facility] Monocyte distribution width [Entitic volume] in Blood by AutomatedOrdered By: Jorge Luis Zavala on 10-16-2024 Monocyte distribution width Auto (Bld) [Entitic vol] Monocyte distribution width [Entitic volume] in Blood by Automated 0.00-20.00 [facility] Natriuretic peptide B [Mass/ Vol]Ordered By: Jorge Luis Zavala on 10-16-2024 Natriuretic peptide B (Bld) [Mass/Vol] BNP ser/plas High 5-100 [facility] Potassium (Bld) [Moles/Vol]O rdered By: Kavin Escobar on 10-16-2024 Potassium [Moles/Vol] Whole blood potass ium measurement Critically high 3.5-4.9 [facility] Prothrombin Time INRon 10-16 INR Coag (PPP) [Relative time] 2.6 {INR} Normal [facility] Comment on above: Result [...] heart valves: 3 - 4.5 PERFORMED BY: [address] [address] PATHOLOGIST SPEECH COMMUNICATION INSTRUCTOR MAY HYDE M.D. Performed By: #### A 1C [facility] eA #### [facility] [address] [place] [address] [facility] PT Coag (PPP) [Time] 28.9 s High 9.0-12.9 [facility] Comment on above: Result Comment: A he matocrit value greater than 55% may lead to inaccurate results in coagulation testing. Patients having hematocrit values >55% require a special collection tube for coagulation studies. Please contact the laboratory at [phone] for redraw instructions. Performed By: #### A 1C [facility] eA #### [address] Prothrombin time (PT)Ordered By: Jorge Luis Zavala on 10-16-2024 PT Coag (PPP) [Time] Prothrombin time (PT) High 9.0- 12.9 [facility] Comment on above: A hematocrit value g reater than 55% may lead to inaccurate results in coagulation testing. Patients having hematocrit values >55% require a special collection tube for coagulation studies. Please contact the laboratory at [phone] for redraw instructions. Sodium (Bld) [Moles/Vol]Orde red By: Kavin Escobar on 10-16-2024 Sodium [Moles/Vol] Whole blood sodium measurement Low 138-146 [facility] Troponin I High Sensitivityo n 10-16-2024 Troponin I High Sensitivity 9.9 pg/mL Normal 0.0-15.0 [facility] Comment on above: Result Comment: PERF ORMED BY: [place] [address] PATHOLOGIST SPEECH COMMUNICATION INSTRUCTOR MAY HYDE M.D. Performed By: #### A 1C [facility] eA #### [address] Troponin I.cardiac [Mass/vol ume] in Serum or Plasma by Detection limit <= 0.01 ng/Ordered By: Jorge Luis Zavala on 10-16-2024 Troponin I.cardiac DL <= 0.01 ng/mL [Mass/Vol] Troponin I.cardiac [Mass/volume] in Serum or Plasma by Detection limit <= 0.01 ng/ 0.0-15.0 [facility] Urea nitrogen (Bld) [Mass/Vo l]Ordered By: Kavin Escobar on 10-16-2024 Urea nitrogen [Mass/Vol] Blood urea nitrogen (BUN) measurement in whole blood (mass/volume) High 8-26 [facility] Whole blood ionized calcium measurement (moles/volume)Ordered By: Kavin Escobar on 10-16-2024 Calcium.ionized (Bld) [Moles/Vol] Whole blood ionized calcium measurement (moles/volume) Low 1.12-1.32 [facility] XR chest 1V portableon 10-16 XR chest 1V portable [facility] Main [place] [address] [place] [address] XRay Report Signed Patient: Joe Call MR#: [id number] 0 : 1945 Acct:[id number] Age/Sex: 79 / F ADM Date: 10/16/24 Loc: ER Room: Type: [facility] ER Attending Dr: Copies to: Jorge Luis [...] Jarred Randolph M.D.10/16/2024 2:10 PM Dictation Location: [place] [address] Transcribed By: [facility] 10/16/24 1410 Dictated By: Jarred Randolph DO 10/16/24 1407 Signed By: 10/16/24 1410 Normal [facility] 37on 10-08-2024 37 *Cut lisinopril in h rae to 10mg daily. *Follow-up labs in 2 weeks. *Limit fluid intake to 64oz or 2 liters a day. Normal [facility] Office Visiton 10-08-2024 Follow-up visit [id number] Joe Call Bela 1945 F Date Provider Department Center 10/08/2024 Moris-YAMEL PANDYA Afsaneh Kiana Family History Problem Relation Age of Onset Coronary artery disease Other Diabetes Other Polycystic kidney disease Other Family Status - Relation Status Age at Other Level of Service:56237 SD OFFICE/OUTPATIENT ESTABLISHED MOD MDM 30 MIN Reason for Visit and Comments: Congestive Heart Failure [127] Hypertension [077314] Atrial Fibrillation [80] Normal [facility] Estimated glomerular filtrat ion rate (GFR) non- Americanon 09-29-2024 GFR/1.73 sq M.predicted among non-blacks MDRD (S/P/Bld) [Vol rate/Area] Estimated glomerular filtration rate (GFR) non- Low >=60 mL/min/1.73 m 2 [facility] Laboratory - Chemistry and C hemistry - challengeon 09-29-2024 Calcium [Mass/Vol] 8.8 mg/dL 8.5-10.1 [facility] Chloride [Moles/Vol] 102 mmol/L 98-107 [facility] CO2 [Moles/Vol] 24.9 mmol/L 21.0-32.[address] [facility] Creatinine [Mass/Vol] 1.92 mg/dL High 0.55-1.02 [facility] GFR/1.73 sq M.predicted MDRD (S/P/Bld) [Vol rate/Area] 31 mL/min/{1.73_m2} Low >=60 mL/min/1.73 m 2 [facility] Glucose [Mass/Vol] 387 mg/dL High 74-106 [facility] Potassium [Moles/Vol] 5.0 mmol/L 3.5-5.1 [facility] Sodium [Moles/Vol] 136 mmol/L 136-145 [facility] Urea nitrogen [Mass/Vol] 64.0 mg/dL High 7.0-18.0 [facility] Urea nitrogen/Creatinine [Mass ratio] 33.3 mg/mg [facility] Serum or plasma anion gap de terminationon 09-29-2024 Anion gap [Moles/Vol] Serum or plasma an ion gap determination [facility] 37on 09-03-2024 37 *Your kidney functio [...] of breath or worsening leg swelling. Normal [facility] Office Visiton 09-03-2024 Follow-up visit [id number] BassemJoe 1945 F Date Provider Department Center 09/03/2024 YAMEL OCAMPO Family History Problem Relation Age of Onset Coronary artery disease Other Diabetes Other Polycystic kidney disease Other Family Status - Relation Status Age at Other Level of Service:97781 SD OFFICE/OUTPATIENT ESTABLISHED MOD MDM 30 MIN Reason for Visit and Comments: Congestive Heart Failure [127] Atrial Fibrillation [80] Hypertension [601195] Normal [facility] Office Visiton 08-20-2024 Follow-up visit [id number] Joe Call 1945 F Date Provider Department Center 08/20/2024 YAMEL OCAMPO Family History Problem Relation Age of Onset Coronary artery disease Other Diabetes Other Polycystic kidney disease Other Family Status - Relation Status Age at Other Level of Service:92949 SD OFFICE/OUTPATIENT ESTABLISHED MOD MDM 30 MIN Reason for Visit and Comments: Congestive Heart Failure [127] Normal [facility] Basophils Auto (Bld) [#/Vol] on 07-25-2024 Basophils (Bld) [#/Vol] 0.1 10 3/uL 0.0-0.1 [facility] Basophils/100 WBC Auto (Bld) on 07-25-2024 Basophils/100 WBC (Bld) 1.2 % 0.2-2.0 [facility] Eosinophils/100 WBC Auto (Bl d)on 07-25-2024 Eosinophils/100 WBC (Bld) 1.6 % 0.9-7.0 [facility] Erythrocyte distribution wid th Auto (RBC) [Ratio]on 07-25-2024 Erythrocyte distribution width (RBC) [Ratio] 13.7 % 11.0-15.0 [facility] Estimated glomerular filtrat ion rate (GFR) non- Americanon 07-25-2024 GFR/1.73 sq M.predicted among non-blacks MDRD (S/P/Bld) [Vol rate/Area] 47 mL/min/{1.73_m2} Low >=60 [facility] Globulin Calc (S) [Mass/Vol] on 07-25-2024 Globulin (S) [Mass/Vol] 4.7 g/dL [facility] Hematocrit Auto (Bld) [Volum e fraction]on 07-25-2024 Hematocrit (Bld) [Volume fraction] 33.6 % Low 36.0-48.0 [facility] Hemoglobin [Mass/volume] in Bloodon 07-25-2024 Hemoglobin (Bld) [Mass/Vol] 11.0 g/dL Low 12.0-16.0 [facility] Laboratory - Chemistry and C hemistry - challengeon 07-25-2024 Albumin [Mass/Vol] 2.3 g/dL Low 3.4-5.0 [facility] ALP [Catalytic activity/Vol] 101 U/L 46-116 [facility] ALT [Catalytic activity/Vol] 14 U/L 14-59 [facility] AST [Catalytic activity/Vol] 13 U/L Low 15-37 [facility] Bilirubin [Mass/Vol] 0.8 mg/dL 0.2-1.0 [facility] Calcium [Mass/Vol] 8.6 mg/dL 8.5-10.1 [facility] Chloride [Moles/Vol] 102 mmol/L 98-107 [facility] CO2 [Moles/Vol] 27.8 mmol/L 21.0-32.[address] [facility] Creatinine [Mass/Vol] 1.13 mg/dL High 0.55-1.02 [facility] GFR/1.73 sq M.predicted MDRD (S/P/Bld) [Vol rate/Area] 56 mL/min/{1.73_m2} Low >=60 [facility] Glucose [Mass/Vol] 228 mg/dL High 74-106 [facility] Potassium [Moles/Vol] 3.7 mmol/L 3.5-5.1 [facility] Protein [Mass/Vol] 7.0 g/dL 6.4-8.2 [facility] Sodium [Moles/Vol] 140 mmol/L 136-145 [facility] Urea nitrogen [Mass/Vol] 26.0 mg/dL High 7.0-18.0 [facility] Urea nitrogen/Creatinine [Mass ratio] 23.0 mg/mg [facility] Laboratory - Hematology and Cell countson 07-25-2024 Immature granulocytes/100 WBC (Bld) 0.2 % 0.0-0.5 [facility] Leukocytes [#/volume] correc gali for nucleated erythrocytes in Blood by Automated counon 07-25-2024 WBC corrected for nucl RBC Auto (Bld) [#/Vol] 8.7 10 3/uL 4.0-11.0 [facility] Lymphocytes Auto (Bld) [#/Vo l]on 07-25-2024 Lymphocytes (Bld) [#/Vol] 1.4 10 3/uL 1.2-3.8 [facility] Lymphocytes/100 WBC Auto (Bl d)on 07-25-2024 Lymphocytes/100 WBC (Bld) 15.9 % Low 20.5-60.0 [facility] MCH Auto (RBC) [Entitic mass ]on 07-25-2024 MCH (RBC) [Entitic mass] 29.7 pg 26.7-34.0 [facility] MCHC Auto (RBC) [Mass/Vol]on 07-25-2024 MCHC (RBC) [Mass/Vol] 32.7 g/dL 29.9-35.2 [facility] MCV Auto (RBC) [Entitic vol] on 07-25-2024 MCV (RBC) [Entitic vol] 90.8 fL 81.0-99.0 [facility] Monocytes Auto (Bld) [#/Vol] on 07-25-2024 Monocytes (Bld) [#/Vol] 0.7 10 3/uL 0.3-0.8 [facility] Monocytes/100 WBC Auto (Bld) on 07-25-2024 Monocytes/100 WBC (Bld) 8.2 % 1.7-12.0 [facility] Neutrophils Auto (Bld) [#/Vo l]on 07-25-2024 Neutrophils (Bld) [#/Vol] 6.3 10 3/uL 1.4-6.5 [facility] Neutrophils/100 WBC Auto (Bl d)on 07-25-2024 Neutrophils/100 WBC (Bld) 72.9 % 43.0-75.0 [facility] No Panel Informationon 07-25 Eosinophils # (Auto) 0.1 10 3/uL 0.0-0.7 [facility] Immature Granulocyte # (Auto) 0.02 10 3/uL 0.00-0.03 [facility] Platelet mean volume Auto (B ld) [Entitic vol]on 07-25-2024 Platelet mean volume (Bld) [Entitic vol] 10.3 fL 9.5-13.5 [facility] Platelets Auto (Bld) [#/Vol] on 07-25-2024 Platelets (Bld) [#/Vol] 239 10 3/uL 150-450 [facility] RBC Auto (Bld) [#/Vol]on RBC (Bld) [#/Vol] 3.70 10 6/uL Low 4.20-5.40 [facility] Serum or plasma albumin/glob ulin mass ratioon 07-25-2024 Albumin/Globulin [Mass ratio] 0.5 {ratio} [facility] Serum or plasma anion gap de terminationon 07-25-2024 Anion gap [Moles/Vol] 13.9 mmol/L [facility] Basophils Auto (Bld) [#/Vol] on 07-24-2024 Basophils (Bld) [#/Vol] 0.1 10 3/uL 0.0-0.1 [facility] Basophils/100 WBC Auto (Bld) on 07-24-2024 Basophils/100 WBC (Bld) 0.7 % 0.2-2.0 [facility] Eosinophils/100 WBC Auto (Bl d)on 07-24-2024 Eosinophils/100 WBC (Bld) 1.7 % 0.9-7.0 [facility] Erythrocyte distribution wid th Auto (RBC) [Ratio]on 07-24-2024 Erythrocyte distribution width (RBC) [Ratio] 13.7 % 11.0-15.0 [facility] Estimated glomerular filtrat ion rate (GFR) non- Americanon 07-24-2024 GFR/1.73 sq M.predicted among non-blacks MDRD (S/P/Bld) [Vol rate/Area] 48 mL/min/{1.73_m2} Low >=60 [facility] Hematocrit Auto (Bld) [Volum e fraction]on 07-24-2024 Hematocrit (Bld) [Volume fraction] 34.5 % Low 36.0-48.0 [facility] Hemoglobin [Mass/volume] in Bloodon 07-24-2024 Hemoglobin (Bld) [Mass/Vol] 11.2 g/dL Low 12.0-16.0 [facility] Laboratory - Chemistry and C hemistry - challengeon 07-24-2024 Calcium [Mass/Vol] 8.9 mg/dL 8.5-10.1 [facility] Chloride [Moles/Vol] 104 mmol/L 98-107 [facility] CO2 [Moles/Vol] 26.1 mmol/L 21.0-32.[address] [facility] Creatinine [Mass/Vol] 1.11 mg/dL High 0.55-1.02 [facility] GFR/1.73 sq M.predicted MDRD (S/P/Bld) [Vol rate/Area] 58 mL/min/{1.73_m2} Low >=60 [facility] Glucose [Mass/Vol] 247 mg/dL High 74-106 [facility] Natriuretic peptide B (Bld) [Mass/Vol] 6277.0 pg/mL High <=1800.0 [facility] Comment on above: RESULTS CALLED TO YOEL STEWARD RN IN ER BY Mira Martinez at 1430 Potassium [Moles/Vol] 4.1 mmol/L 3.5-5.1 [facility] Sodium [Moles/Vol] 141 mmol/L 136-145 [facility] Urea nitrogen [Mass/Vol] 28.0 mg/dL High 7.0-18.0 [facility] Urea nitrogen/Creatinine [Mass ratio] 25.2 mg/mg [facility] Laboratory - Hematology and Cell countson 07-24-2024 Immature granulocytes/100 WBC (Bld) 0.3 % 0.0-0.5 [facility] Leukocytes [#/volume] correc gali for nucleated erythrocytes in Blood by Automated counon 07-24-2024 WBC corrected for nucl RBC Auto (Bld) [#/Vol] 9.7 10 3/uL 4.0-11.0 [facility] Lymphocytes Auto (Bld) [#/Vo l]on 07-24-2024 Lymphocytes (Bld) [#/Vol] 0.9 10 3/uL Low 1.2-3.8 [facility] Lymphocytes/100 WBC Auto (Bl d)on 07-24-2024 Lymphocytes/100 WBC (Bld) 9.2 % Low 20.5-60.0 [facility] MCH Auto (RBC) [Entitic mass ]on 07-24-2024 MCH (RBC) [Entitic mass] 29.9 pg 26.7-34.0 [facility] MCHC Auto (RBC) [Mass/Vol]on 07-24-2024 MCHC (RBC) [Mass/Vol] 32.5 g/dL 29.9-35.2 [facility] MCV Auto (RBC) [Entitic vol] on 07-24-2024 MCV (RBC) [Entitic vol] 92.0 fL 81.0-99.0 [facility] Monocytes Auto (Bld) [#/Vol] on 07-24-2024 Monocytes (Bld) [#/Vol] 0.5 10 3/uL 0.3-0.8 [facility] Monocytes/100 WBC Auto (Bld) on 07-24-2024 Monocytes/100 WBC (Bld) 5.3 % 1.7-12.0 [facility] Neutrophils Auto (Bld) [#/Vo l]on 07-24-2024 Neutrophils (Bld) [#/Vol] 8.0 10 3/uL High 1.4-6.5 [facility] Neutrophils/100 WBC Auto (Bl d)on 07-24-2024 Neutrophils/100 WBC (Bld) 82.8 % High 43.0-75.0 [facility] No Panel Informationon 07-24 Eosinophils # (Auto) 0.2 10 3/uL 0.0-0.7 [facility] Immature Granulocyte # (Auto) 0.03 10 3/uL 0.00-0.03 [facility] Troponin I High Sensitivity 20.5 pg/mL 4.0-51.3 [facility] Comment on above: CUT-OFF POINTS HAVE [...] volume (Bld) [Entitic vol] 10.4 fL 9.5-13.5 [facility] Platelets Auto (Bld) [#/Vol] on 07-24-2024 Platelets (Bld) [#/Vol] 236 10 3/uL 150-450 [facility] RBC Auto (Bld) [#/Vol]on RBC (Bld) [#/Vol] 3.75 10 6/uL Low 4.20-5.40 [facility] Serum or plasma anion gap de terminationon 07-24-2024 Anion gap [Moles/Vol] 15.0 mmol/L [facility] Urine Cultureon 07-17-2024 Bacteria identified Cx Nom (U) ORGANISM: Citrobacter freundii complex (O:CITFRC) [employer] Count >100,000 ORGANISM: Proteus mirabilis (O:PROMIR) [employer] Count 20,000 Aerobic MIRTHA Charge (NMIC56) - [...] RESISTANT TO ALL B-LACTAM DRUGS. PERFORMED BY: [address] [place] [address] PATHOLOGIST SPEECH COMMUNICATION INSTRUCTOR CHOLO YEAGER M.D. [facility] Comment on above: Performed By: #### A 1C [facility] eA #### [address] Urine culture routineOrdered By: Shantel Steven on 07-17-2024 Bacteria identified Cx Nom (U) Proteus mirabilis Abnormal [facility] Erythrocyte distribution wid th Auto (RBC) [Ratio]on 07-15-2024 Erythrocyte distribution width (RBC) [Ratio] 13.3 % 11.0-15.0 [facility] Estimated glomerular filtrat ion rate (GFR) non- Americanon 07-15-2024 GFR/1.73 sq M.predicted among non-blacks MDRD (S/P/Bld) [Vol rate/Area] 47 mL/min/{1.73_m2} Low >=60 [facility] Globulin Calc (S) [Mass/Vol] on 07-15-2024 Globulin (S) [Mass/Vol] 4.2 g/dL [facility] Hematocrit Auto (Bld) [Volum e fraction]on 07-15-2024 Hematocrit (Bld) [Volume fraction] 34.9 % Low 36.0-48.0 [facility] Hemoglobin [Mass/volume] in Bloodon 07-15-2024 Hemoglobin (Bld) [Mass/Vol] 11.6 g/dL Low 12.0-16.0 [facility] Laboratory - Chemistry and C hemistry - challengeon 07-15-2024 Bilirubin Ql (U) Negative NEGATIVE [facility] Glucose (U) [Mass/Vol] Negative NEGATIVE [facility] Ketones Ql (U) Negative NEGATIVE [facility] pH (U) 6.5 [pH] 5.0-9.0 [facility] Specific gravity (U) [Rel density] 1.020 1.005-1.025 [facility] Urobilinogen Qn (U) 0.2 {Meka'U}/dL 0.2-1.0 [facility] Albumin [Mass/Vol] 2.6 g/dL Low 3.4-5.0 [facility] ALP [Catalytic activity/Vol] 87 U/L 46-116 [facility] ALT [Catalytic activity/Vol] 18 U/L 14-59 [facility] AST [Catalytic activity/Vol] 14 U/L Low 15-37 [facility] Bilirubin [Mass/Vol] 0.6 mg/dL 0.2-1.0 [facility] Calcium [Mass/Vol] 8.6 mg/dL 8.5-10.1 [facility] Chloride [Moles/Vol] 101 mmol/L 98-107 [facility] CO2 [Moles/Vol] 31.4 mmol/L 21.0-32.[address] [facility] Creatinine [Mass/Vol] 1.12 mg/dL High 0.55-1.02 [facility] GFR/1.73 sq M.predicted MDRD (S/P/Bld) [Vol rate/Area] 57 mL/min/{1.73_m2} Low >=60 [facility] Glucose [Mass/Vol] 153 mg/dL High 74-106 [facility] Natriuretic peptide B (Bld) [Mass/Vol] 3410.0 pg/mL High <=1800.0 [facility] Comment on above: RESULTS CALLED TO Bogdan Robin RN at 0840 Potassium [Moles/Vol] 3.6 mmol/L 3.5-5.1 [facility] Protein [Mass/Vol] 6.8 g/dL 6.4-8.2 [facility] Sodium [Moles/Vol] 141 mmol/L 136-145 [facility] Urea nitrogen [Mass/Vol] 43.0 mg/dL High 7.0-18.0 [facility] Urea nitrogen/Creatinine [Mass ratio] 38.4 mg/mg [facility] Laboratory - Specimen inform ationon 07-15-2024 Appearance (U) CLEAR CLEAR [facility] Color (U) LT. YELLOW YELLOW [facility] Laboratory - Urinalysison Leukocyte esterase Test strip Ql (U) Negative NEGATIVE [facility] Mucus Ql (Urine sed) NONE SEEN NONE SEEN [facility] Nitrite Ql (U) Negative NEGATIVE [facility] Protein Ql (U) 100 mg/dL Abnormal NEG/TRACE [facility] Leukocytes [#/volume] correc gali for nucleated erythrocytes in Blood by Automated counon 07-15-2024 WBC corrected for nucl RBC Auto (Bld) [#/Vol] 8.5 10 3/uL 4.0-11.0 [facility] MCH Auto (RBC) [Entitic mass ]on 07-15-2024 MCH (RBC) [Entitic mass] 29.9 pg 26.7-34.0 [facility] MCHC Auto (RBC) [Mass/Vol]on 07-15-2024 MCHC (RBC) [Mass/Vol] 33.2 g/dL 29.9-35.2 [facility] MCV Auto (RBC) [Entitic vol] on 07-15-2024 MCV (RBC) [Entitic vol] 89.9 fL 81.0-99.0 [facility] No Panel Informationon 07-15 Urine Bacteria NONE SEEN #/HPF NONE SEEN [facility] Urine Occult Blood TRACE-I NEGATIVE [facility] Urine RBC 0-2 #/HPF 0-2 [facility] Urine Squamous Epithelial Cells FEW #/LPF Abnormal NONE/RARE [facility] Urine WBC NONE SEEN #/HPF NONE SEEN [facility] NONE SEEN #/HPF NONE SEEN [facility] Negative NEGATIVE [facility] TRACE-I NEGATIVE [facility] CLEAR CLEAR [facility] LT. YELLOW YELLOW [facility] NONE SEEN NONE SEEN [facility] 6.5 5.0-9.0 [facility] 100 mg/dL Abnormal NEG/TRACE [facility] 0-2 #/HPF 0-2 [facility] 1.020 1.005-1.025 [facility] FEW #/LPF Abnormal NONE/RARE [facility] 0.2 EU/dL 0.2-1.0 [facility] Troponin I High Sensitivity 21.3 pg/mL 4.0-51.3 [facility] Comment on above: CUT-OFF POINTS HAVE [...] CLINICAL INFORMATION. 3410.0 pg/mL High <=1800.0 [facility] 21.3 pg/mL 4.0-51.3 [facility] 2.6 g/dL Low 3.4-5.0 [facility] 87 U/L 46-116 [facility] 18 U/L 14-59 [facility] 14 U/L Low 15-37 [facility] 38.4 [facility] 43.0 mg/dL High 7.0-18.0 [facility] 8.6 mg/dL 8.5-10.1 [facility] 101 mmol/L 98-107 [facility] 31.4 mmol/L 21.0-32.0 [facility] 1.12 mg/dL High 0.55-1.02 [facility] 57 Low >=60 [facility] 153 mg/dL High 74-106 [facility] 3.6 mmol/L 3.5-5.1 [facility] 141 mmol/L 136-145 [facility] 0.6 mg/dL 0.2-1.0 [facility] 6.8 g/dL 6.4-8.2 [facility] Platelet mean volume Auto (B ld) [Entitic vol]on 07-15-2024 Platelet mean volume (Bld) [Entitic vol] 11.0 fL 9.5-13.5 [facility] Platelets Auto (Bld) [#/Vol] on 07-15-2024 Platelets (Bld) [#/Vol] 177 10 3/uL 150-450 [facility] RBC Auto (Bld) [#/Vol]on RBC (Bld) [#/Vol] 3.88 10 6/uL Low 4.20-5.40 [facility] Serum or plasma albumin/glob ulin mass ratioon 07-15-2024 Albumin/Globulin [Mass ratio] 0.6 {ratio} [facility] Serum or plasma anion gap de terminationon 07-15-2024 Anion gap [Moles/Vol] 12.2 mmol/L [facility] Basophils Auto (Bld) [#/Vol] on 07-14-2024 Basophils (Bld) [#/Vol] 0.1 10 3/uL 0.0-0.1 [facility] Basophils/100 WBC Auto (Bld) on 07-14-2024 Basophils/100 WBC (Bld) 0.9 % 0.2-2.0 [facility] Eosinophils/100 WBC Auto (Bl d)on 07-14-2024 Eosinophils/100 WBC (Bld) 1.3 % 0.9-7.0 [facility] Erythrocyte distribution wid th Auto (RBC) [Ratio]on 07-14-2024 Erythrocyte distribution width (RBC) [Ratio] 13.5 % 11.0-15.0 [facility] Estimated glomerular filtrat ion rate (GFR) non- Americanon 07-14-2024 GFR/1.73 sq M.predicted among non-blacks MDRD (S/P/Bld) [Vol rate/Area] 30 mL/min/{1.73_m2} Low >=60 [facility] Hematocrit Auto (Bld) [Volum e fraction]on 07-14-2024 Hematocrit (Bld) [Volume fraction] 38.5 % 36.0-48.0 [facility] Hemoglobin [Mass/volume] in Bloodon 07-14-2024 Hemoglobin (Bld) [Mass/Vol] 12.8 g/dL 12.0-16.0 [facility] Laboratory - Chemistry and C hemistry - challengeon 07-14-2024 Calcium [Mass/Vol] 9.0 mg/dL 8.5-10.1 [facility] Chloride [Moles/Vol] 96 mmol/L Low 98-107 [facility] CO2 [Moles/Vol] 35.5 mmol/L High 21.0-32.[address] [facility] Creatinine [Mass/Vol] 1.65 mg/dL High 0.55-1.02 [facility] GFR/1.73 sq M.predicted MDRD (S/P/Bld) [Vol rate/Area] 36 mL/min/{1.73_m2} Low >=60 [facility] Glucose [Mass/Vol] 458 mg/dL High 74-106 [facility] Potassium [Moles/Vol] 4.0 mmol/L 3.5-5.1 [facility] Sodium [Moles/Vol] 135 mmol/L Low 136-145 [facility] Urea nitrogen [Mass/Vol] 52.0 mg/dL High 7.0-18.0 [facility] Urea nitrogen/Creatinine [Mass ratio] 31.5 mg/mg [facility] Laboratory - Hematology and Cell countson 07-14-2024 Immature granulocytes/100 WBC (Bld) 0.1 % 0.0-0.5 [facility] Leukocytes [#/volume] correc gali for nucleated erythrocytes in Blood by Automated counon 07-14-2024 WBC corrected for nucl RBC Auto (Bld) [#/Vol] 8.2 10 3/uL 4.0-11.0 [facility] Lymphocytes Auto (Bld) [#/Vo l]on 07-14-2024 Lymphocytes (Bld) [#/Vol] 1.1 10 3/uL Low 1.2-3.8 [facility] Lymphocytes/100 WBC Auto (Bl d)on 07-14-2024 Lymphocytes/100 WBC (Bld) 13.7 % Low 20.5-60.0 [facility] MCH Auto (RBC) [Entitic mass ]on 07-14-2024 MCH (RBC) [Entitic mass] 30.0 pg 26.7-34.0 [facility] MCHC Auto (RBC) [Mass/Vol]on 07-14-2024 MCHC (RBC) [Mass/Vol] 33.2 g/dL 29.9-35.2 [facility] MCV Auto (RBC) [Entitic vol] on 07-14-2024 MCV (RBC) [Entitic vol] 90.2 fL 81.0-99.0 [facility] Monocytes Auto (Bld) [#/Vol] on 07-14-2024 Monocytes (Bld) [#/Vol] 0.5 10 3/uL 0.3-0.8 [facility] Monocytes/100 WBC Auto (Bld) on 07-14-2024 Monocytes/100 WBC (Bld) 6.6 % 1.7-12.0 [facility] Neutrophils Auto (Bld) [#/Vo l]on 07-14-2024 Neutrophils (Bld) [#/Vol] 6.3 10 3/uL 1.4-6.5 [facility] Neutrophils/100 WBC Auto (Bl d)on 07-14-2024 Neutrophils/100 WBC (Bld) 77.4 % High 43.0-75.0 [facility] No Panel Informationon 07-14 Eosinophils # (Auto) 0.1 10 3/uL 0.0-0.7 [facility] Immature Granulocyte # (Auto) 0.01 10 3/uL 0.00-0.03 [facility] Troponin I High Sensitivity 17.9 pg/mL 4.0-51.3 [facility] Comment on above: CUT-OFF POINTS HAVE [...] AND CLINICAL INFORMATION. 17.9 pg/mL 4.0-51.3 [facility] 31.5 [facility] 0.1 10 3/uL 0.0-0.7 [facility] 52.0 mg/dL High 7.0-18.0 [facility] 9.0 mg/dL 8.5-10.1 [facility] 96 mmol/L Low 98-107 [facility] 35.5 mmol/L High 21.0-32.0 [facility] 0.01 10 3/uL 0.00-0.03 [facility] 1.65 mg/dL High 0.55-1.02 [facility] 0.1 % 0.0-0.5 [facility] 36 Low >=60 [facility] 458 mg/dL High 74-106 [facility] 4.0 mmol/L 3.5-5.1 [facility] 135 mmol/L Low 136-145 [facility] Platelet mean volume Auto (B ld) [Entitic vol]on 07-14-2024 Platelet mean volume (Bld) [Entitic vol] 11.0 fL 9.5-13.5 [facility] Platelets Auto (Bld) [#/Vol] on 07-14-2024 Platelets (Bld) [#/Vol] 182 10 3/uL 150-450 [facility] RBC Auto (Bld) [#/Vol]on RBC (Bld) [#/Vol] 4.27 10 6/uL 4.20-5.40 [facility] Serum or plasma anion gap de terminationon 07-14-2024 Anion gap [Moles/Vol] 7.5 mmol/L [facility] 36on 07-01-2024 36 Regarding lab result [...] for patient to return my call. Normal [facility] Estimated glomerular filtrat ion rate (GFR) non- Americanon 06-24-2024 GFR/1.73 sq M.predicted among non-blacks MDRD (S/P/Bld) [Vol rate/Area] 38 mL/min/{1.73_m2} Low >=60 [facility] Laboratory - Chemistry and C hemistry - challengeon 06-24-2024 Calcium [Mass/Vol] 8.4 mg/dL Low 8.5-10.1 [facility] Chloride [Moles/Vol] 100 mmol/L 98-107 [facility] CO2 [Moles/Vol] 31.1 mmol/L 21.0-32.[address] [facility] Creatinine [Mass/Vol] 1.34 mg/dL High 0.55-1.02 [facility] GFR/1.73 sq M.predicted MDRD (S/P/Bld) [Vol rate/Area] 46 mL/min/{1.73_m2} Low >=60 [facility] Glucose [Mass/Vol] 222 mg/dL High 74-106 [facility] Potassium [Moles/Vol] 3.6 mmol/L 3.5-5.1 Fir [facility] Sodium [Moles/Vol] 138 mmol/L 136-145 [facility] Urea nitrogen [Mass/Vol] 32.0 mg/dL High 7.0-18.0 [facility] Urea nitrogen/Creatinine [Mass ratio] 23.9 mg/mg [facility] No Panel Informationon 06-24 23.9 [facility] 32.0 mg/dL High 7.0-18.0 [facility] 8.4 mg/dL Low 8.5-10.1 [facility] 100 mmol/L 98-107 [facility] 31.1 mmol/L 21.0-32.0 [facility] 1.34 mg/dL High 0.55-1.02 [facility] 46 Low >=60 [facility] 222 mg/dL High 74-106 [facility] 3.6 mmol/L 3.5-5.1 [facility] 138 mmol/L 136-145 [facility] Serum or plasma anion gap de terminationon 06-24-2024 Anion gap [Moles/Vol] 10.5 mmol/L [facility] Office Visiton 06-18-2024 Follow-up visit [id number] Joe Call 1945 F Date Provider Department Center 06/18/2024 RICA DEAN LOVE [facility] Family History Problem Relation Age of Onset Coronary artery disease Other Diabetes Other Polycystic kidney disease Other Family Status - Relation Status Age at Other Level of Service:[address]772 SD OFFICE/OUTPATIENT ESTABLISHED MOD MDM 30 MIN Normal [facility] Basophils Auto (Bld) [#/Vol] on 06-10-2024 Basophils (Bld) [#/Vol] 0.1 10 3/uL 0.0-0.1 [facility] Basophils/100 WBC Auto (Bld) on 06-10-2024 Basophils/100 WBC (Bld) 1.0 % 0.2-2.0 [facility] Eosinophils/100 WBC Auto (Bl d)on 06-10-2024 Eosinophils/100 WBC (Bld) 1.3 % 0.9-7.0 [facility] Erythrocyte distribution wid th Auto (RBC) [Ratio]on 06-10-2024 Erythrocyte distribution width (RBC) [Ratio] 14.6 % 11.0-15.0 [facility] Estimated glomerular filtrat ion rate (GFR) non- Americanon 06-10-2024 GFR/1.73 sq M.predicted among non-blacks MDRD (S/P/Bld) [Vol rate/Area] 54 mL/min/{1.73_m2} Low >=60 [facility] Globulin Calc (S) [Mass/Vol] on 06-10-2024 Globulin (S) [Mass/Vol] 4.5 g/dL [facility] Hematocrit Auto (Bld) [Volum e fraction]on 06-10-2024 Hematocrit (Bld) [Volume fraction] 36.8 % 36.0-48.0 [facility] Hemoglobin [Mass/volume] in Bloodon 06-10-2024 Hemoglobin (Bld) [Mass/Vol] 12.1 g/dL 12.0-16.0 [facility] Laboratory - Chemistry and C hemistry - challengeon 06-10-2024 Albumin [Mass/Vol] 2.4 g/dL Low 3.4-5.0 [facility] ALP [Catalytic activity/Vol] 94 U/L 46-116 [facility] ALT [Catalytic activity/Vol] 13 U/L Low 14-59 [facility] AST [Catalytic activity/Vol] 13 U/L Low 15-37 [facility] Bilirubin [Mass/Vol] 0.9 mg/dL 0.2-1.0 [facility] Calcium [Mass/Vol] 8.9 mg/dL 8.5-10.1 [facility] Chloride [Moles/Vol] 101 mmol/L 98-107 [facility] CO2 [Moles/Vol] 29.4 mmol/L 21.0-32.[address] [facility] Creatinine [Mass/Vol] 1.00 mg/dL 0.55-1.02 [facility] GFR/1.73 sq M.predicted MDRD (S/P/Bld) [Vol rate/Area] mL/min/{1.73_m2} >=60 [facility] Glucose [Mass/Vol] 167 mg/dL High 74-106 [facility] Potassium [Moles/Vol] 3.4 mmol/L Low 3.5-5.1 [facility] Protein [Mass/Vol] 6.9 g/dL 6.4-8.2 [facility] Sodium [Moles/Vol] 136 mmol/L 136-145 [facility] Urea nitrogen [Mass/Vol] 24.0 mg/dL High 7.0-18.0 [facility] Urea nitrogen/Creatinine [Mass ratio] 24.0 mg/mg [facility] Laboratory - Hematology and Cell countson 06-10-2024 Immature granulocytes/100 WBC (Bld) 0.3 % 0.0-0.5 [facility] Leukocytes [#/volume] correc gali for nucleated erythrocytes in Blood by Automated counon 06-10-2024 WBC corrected for nucl RBC Auto (Bld) [#/Vol] 7.9 10 3/uL 4.0-11.0 [facility] Lymphocytes Auto (Bld) [#/Vo l]on 06-10-2024 Lymphocytes (Bld) [#/Vol] 1.3 10 3/uL 1.2-3.8 [facility] Lymphocytes/100 WBC Auto (Bl d)on 06-10-2024 Lymphocytes/100 WBC (Bld) 16.8 % Low 20.5-60.0 [facility] MCH Auto (RBC) [Entitic mass ]on 06-10-2024 MCH (RBC) [Entitic mass] 29.8 pg 26.7-34.0 [facility] MCHC Auto (RBC) [Mass/Vol]on 06-10-2024 MCHC (RBC) [Mass/Vol] 32.9 g/dL 29.9-35.2 [facility] MCV Auto (RBC) [Entitic vol] on 06-10-2024 MCV (RBC) [Entitic vol] 90.6 fL 81.0-99.0 [facility] Monocytes Auto (Bld) [#/Vol] on 06-10-2024 Monocytes (Bld) [#/Vol] 0.8 10 3/uL 0.3-0.8 [facility] Monocytes/100 WBC Auto (Bld) on 06-10-2024 Monocytes/100 WBC (Bld) 9.8 % 1.7-12.0 [facility] Neutrophils Auto (Bld) [#/Vo l]on 06-10-2024 Neutrophils (Bld) [#/Vol] 5.6 10 3/uL 1.4-6.5 [facility] Neutrophils/100 WBC Auto (Bl d)on 06-10-2024 Neutrophils/100 WBC (Bld) 70.8 % 43.0-75.0 [facility] No Panel Informationon 06-10 Eosinophils # (Auto) 0.1 10 3/uL 0.0-0.7 [facility] Immature Granulocyte # (Auto) 0.02 10 3/uL 0.00-0.03 [facility] 2.4 g/dL Low 3.4-5.0 [facility] 0.1 10 3/uL 0.0-0.7 [facility] 94 U/L 46-116 [facility] 13 U/L Low 15-37 [facility] 24.0 [facility] 0.02 10 3/uL 0.00-0.03 [facility] 24.0 mg/dL High 7.0-18.0 [facility] 0.3 % 0.0-0.5 [facility] 8.9 mg/dL 8.5-10.1 [facility] 101 mmol/L 98-107 [facility] 29.4 mmol/L 21.0-32.0 [facility] 1.00 mg/dL 0.55-1.02 [facility] >60 >=60 [facility] 167 mg/dL High 74-106 [facility] 3.4 mmol/L Low 3.5-5.1 [facility] 136 mmol/L 136-145 [facility] 0.9 mg/dL 0.2-1.0 [facility] 6.9 g/dL 6.4-8.2 [facility] Platelet mean volume Auto (B ld) [Entitic vol]on 06-10-2024 Platelet mean volume (Bld) [Entitic vol] 11.2 fL 9.5-13.5 [facility] Platelets Auto (Bld) [#/Vol] on 06-10-2024 Platelets (Bld) [#/Vol] 189 10 3/uL 150-450 [facility] RBC Auto (Bld) [#/Vol]on RBC (Bld) [#/Vol] 4.06 10 6/uL Low 4.20-5.40 [facility] Serum or plasma albumin/glob ulin mass ratioon 06-10-2024 Albumin/Globulin [Mass ratio] 0.5 {ratio} [facility] Serum or plasma anion gap de terminationon 06-10-2024 Anion gap [Moles/Vol] 9.0 mmol/L [facility] Basophils Auto (Bld) [#/Vol] on 06-09-2024 Basophils (Bld) [#/Vol] 0.1 10 3/uL 0.0-0.1 [facility] Basophils/100 WBC Auto (Bld) on 06-09-2024 Basophils/100 WBC (Bld) 1.0 % 0.2-2.0 [facility] Eosinophils/100 WBC Auto (Bl d)on 06-09-2024 Eosinophils/100 WBC (Bld) 1.5 % 0.9-7.0 [facility] Erythrocyte distribution wid th Auto (RBC) [Ratio]on 06-09-2024 Erythrocyte distribution width (RBC) [Ratio] 14.8 % 11.0-15.0 [facility] Estimated glomerular filtrat ion rate (GFR) non- Americanon 06-09-2024 GFR/1.73 sq M.predicted among non-blacks MDRD (S/P/Bld) [Vol rate/Area] mL/min/{1.73_m2} >=60 [facility] Fibrin D-dimer [Presence] in Platelet poor plasma by Latex agglutinationon 06-09-2024 Fibrin D-dimer LA Ql (PPP) 0.39 mg/L FEU <=0.59 [facility] Comment on above: Increases in D-Dimer [...] on 06-09-2024 Globulin (S) [Mass/Vol] 4.8 g/dL [facility] Hematocrit Auto (Bld) [Volum e fraction]on 06-09-2024 Hematocrit (Bld) [Volume fraction] 37.7 % 36.0-48.0 [facility] Hemoglobin [Mass/volume] in Bloodon 06-09-2024 Hemoglobin (Bld) [Mass/Vol] 12.5 g/dL 12.0-16.0 [facility] Laboratory - Chemistry and C hemistry - challengeon 06-09-2024 Albumin [Mass/Vol] 2.5 g/dL Low 3.4-5.0 [facility] ALP [Catalytic activity/Vol] 86 U/L 46-116 [facility] ALT [Catalytic activity/Vol] 18 U/L 14-59 [facility] AST [Catalytic activity/Vol] 34 U/L 15-37 [facility] Bilirubin [Mass/Vol] 0.8 mg/dL 0.2-1.0 [facility] Calcium [Mass/Vol] 8.6 mg/dL 8.5-10.1 [facility] Chloride [Moles/Vol] 103 mmol/L 98-107 [facility] CO2 [Moles/Vol] 27.1 mmol/L 21.0-32.[address] [facility] Creatinine [Mass/Vol] 0.88 mg/dL 0.55-1.02 [facility] GFR/1.73 sq M.predicted MDRD (S/P/Bld) [Vol rate/Area] mL/min/{1.73_m2} >=60 [facility] Glucose [Mass/Vol] 142 mg/dL High 74-106 [facility] Lipase [Catalytic activity/Vol] 45.0 U/L 16.0-77.0 [facility] Natriuretic peptide B (Bld) [Mass/Vol] 3488.0 pg/mL High <=1800.0 [facility] Comment on above: RESULTS CALLED TO MAIDA MCGOWAN RN @BY Alla Kevin [id number] Potassium [Moles/Vol] 5.0 mmol/L 3.5-5.1 [facility] Protein [Mass/Vol] 7.3 g/dL 6.4-8.2 [facility] Sodium [Moles/Vol] 135 mmol/L Low 136-145 [facility] Urea nitrogen [Mass/Vol] 28.0 mg/dL High 7.0-18.0 [facility] Urea nitrogen/Creatinine [Mass ratio] 31.8 mg/mg [facility] Laboratory - Hematology and Cell countson 06-09-2024 Immature granulocytes/100 WBC (Bld) 0.3 % 0.0-0.5 [facility] Laboratory - Microbiology an d Antimicrobial susceptibilityon 06-09-2024 SARS-CoV-2 (COVID-19) RNA FERN+probe Ql (Unsp spec) Negative NEGATIVE [facility] Comment on above: This test has [...] (Bld) [#/Vol] 8.9 10 3/uL 4.0-11.0 [facility] Lymphocytes Auto (Bld) [#/Vo l]on 06-09-2024 Lymphocytes (Bld) [#/Vol] 1.3 10 3/uL 1.2-3.8 [facility] Lymphocytes/100 WBC Auto (Bl d)on 06-09-2024 Lymphocytes/100 WBC (Bld) 15.1 % Low 20.5-60.0 [facility] MCH Auto (RBC) [Entitic mass ]on 06-09-2024 MCH (RBC) [Entitic mass] 30.3 pg 26.7-34.0 [facility] MCHC Auto (RBC) [Mass/Vol]on 06-09-2024 MCHC (RBC) [Mass/Vol] 33.2 g/dL 29.9-35.2 [facility] MCV Auto (RBC) [Entitic vol] on 06-09-2024 MCV (RBC) [Entitic vol] 91.5 fL 81.0-99.0 [facility] Monocytes Auto (Bld) [#/Vol] on 06-09-2024 Monocytes (Bld) [#/Vol] 0.7 10 3/uL 0.3-0.8 [facility] Monocytes/100 WBC Auto (Bld) on 06-09-2024 Monocytes/100 WBC (Bld) 7.9 % 1.7-12.0 [facility] Neutrophils Auto (Bld) [#/Vo l]on 06-09-2024 Neutrophils (Bld) [#/Vol] 6.6 10 3/uL High 1.4-6.5 [facility] Neutrophils/100 WBC Auto (Bl d)on 06-09-2024 Neutrophils/100 WBC (Bld) 74.2 % 43.0-75.0 [facility] No Panel Informationon 06-09 Negative NEGATIVE [facility] Eosinophils # (Auto) 0.1 10 3/uL 0.0-0.7 Fir [facility] Immature Granulocyte # (Auto) 0.03 10 3/uL 0.00-0.03 [facility] Troponin I High Sensitivity 17.0 pg/mL 4.0-51.3 [facility] Comment on above: CUT-OFF POINTS HAVE [...] CLINICAL INFORMATION. 3488.0 pg/mL High <=1800.0 [facility] 45.0 U/L 16.0-77.0 [facility] 17.0 pg/mL 4.0-51.3 [facility] 2.5 g/dL Low 3.4-5.0 [facility] 0.1 10 3/uL 0.0-0.7 [facility] 86 U/L 46-116 [facility] 18 U/L 14-59 [facility] 34 U/L 15-37 [facility] 31.8 [facility] 0.03 10 3/uL 0.00-0.03 [facility] 28.0 mg/dL High 7.0-18.0 [facility] 0.3 % 0.0-0.5 [facility] 8.6 mg/dL 8.5-10.1 [facility] 103 mmol/L 98-107 [facility] 27.1 mmol/L 21.0-32.0 [facility] 0.88 mg/dL 0.55-1.02 [facility] >60 >=60 [facility] 142 mg/dL High 74-106 [facility] 5.0 mmol/L 3.5-5.1 [facility] 135 mmol/L Low 136-145 [facility] 0.8 mg/dL 0.2-1.0 [facility] 7.3 g/dL 6.4-8.2 [facility] Platelet mean volume Auto (B ld) [Entitic vol]on 06-09-2024 Platelet mean volume (Bld) [Entitic vol] 12.4 fL 9.5-13.5 [facility] Platelets Auto (Bld) [#/Vol] on 06-09-2024 Platelets (Bld) [#/Vol] 205 10 3/uL 150-450 [facility] RBC Auto (Bld) [#/Vol]on RBC (Bld) [#/Vol] 4.12 10 6/uL Low 4.20-5.40 [facility] Serum or plasma albumin/glob ulin mass ratioon 06-09-2024 Albumin/Globulin [Mass ratio] 0.5 {ratio} [facility] Serum or plasma anion gap de terminationon 06-09-2024 Anion gap [Moles/Vol] 9.9 mmol/L Fir [facility] Basophils Auto (Bld) [#/Vol] on 06-01-2024 Basophils (Bld) [#/Vol] 0.1 10 3/uL 0.0-0.1 [facility] Basophils/100 WBC Auto (Bld) on 06-01-2024 Basophils/100 WBC (Bld) 0.9 % 0.2-2.0 [facility] Eosinophils/100 WBC Auto (Bl d)on 06-01-2024 Eosinophils/100 WBC (Bld) 1.2 % 0.9-7.0 [facility] Erythrocyte distribution wid th Auto (RBC) [Ratio]on 06-01-2024 Erythrocyte distribution width (RBC) [Ratio] 14.1 % 11.0-15.0 [facility] Estimated glomerular filtrat ion rate (GFR) non- Americanon 06-01-2024 GFR/1.73 sq M.predicted among non-blacks MDRD (S/P/Bld) [Vol rate/Area] 47 mL/min/{1.73_m2} Low >=60 [facility] Globulin Calc (S) [Mass/Vol] on 06-01-2024 Globulin (S) [Mass/Vol] 4.4 g/dL [facility] Hematocrit Auto (Bld) [Volum e fraction]on 06-01-2024 Hematocrit (Bld) [Volume fraction] 37.6 % 36.0-48.0 [facility] Hemoglobin [Mass/volume] in Bloodon 06-01-2024 Hemoglobin (Bld) [Mass/Vol] 12.5 g/dL 12.0-16.0 [facility] Laboratory - Chemistry and C hemistry - challengeon 06-01-2024 Albumin [Mass/Vol] 2.7 g/dL Low 3.4-5.0 [facility] ALP [Catalytic activity/Vol] 87 U/L 46-116 [facility] ALT [Catalytic activity/Vol] 18 U/L 14-59 [facility] AST [Catalytic activity/Vol] 16 U/L 15-37 [facility] Bilirubin [Mass/Vol] 0.5 mg/dL 0.2-1.0 [facility] Calcium [Mass/Vol] 8.7 mg/dL 8.5-10.1 [facility] Chloride [Moles/Vol] 101 mmol/L 98-107 [facility] CO2 [Moles/Vol] 28.9 mmol/L 21.0-32.[address] [facility] Creatinine [Mass/Vol] 1.12 mg/dL High 0.55-1.02 [facility] GFR/1.73 sq M.predicted MDRD (S/P/Bld) [Vol rate/Area] 57 mL/min/{1.73_m2} Low >=60 [facility] Glucose [Mass/Vol] 232 mg/dL High 74-106 [facility] Potassium [Moles/Vol] 4.1 mmol/L 3.5-5.1 [facility] Protein [Mass/Vol] 7.1 g/dL 6.4-8.2 [facility] Sodium [Moles/Vol] 137 mmol/L 136-145 [facility] Urea nitrogen [Mass/Vol] 23.0 mg/dL High 7.0-18.0 [facility] Urea nitrogen/Creatinine [Mass ratio] 20.5 mg/mg [facility] Laboratory - Hematology and Cell countson 06-01-2024 Immature granulocytes/100 WBC (Bld) 0.2 % 0.0-0.5 [facility] Leukocytes [#/volume] correc gali for nucleated erythrocytes in Blood by Automated counon 06-01-2024 WBC corrected for nucl RBC Auto (Bld) [#/Vol] 9.0 10 3/uL 4.0-11.0 [facility] Lymphocytes Auto (Bld) [#/Vo l]on 06-01-2024 Lymphocytes (Bld) [#/Vol] 1.4 10 3/uL 1.2-3.8 [facility] Lymphocytes/100 WBC Auto (Bl d)on 06-01-2024 Lymphocytes/100 WBC (Bld) 15.9 % Low 20.5-60.0 [facility] MCH Auto (RBC) [Entitic mass ]on 06-01-2024 MCH (RBC) [Entitic mass] 29.5 pg 26.7-34.0 [facility] MCHC Auto (RBC) [Mass/Vol]on 06-01-2024 MCHC (RBC) [Mass/Vol] 33.2 g/dL 29.9-35.2 [facility] MCV Auto (RBC) [Entitic vol] on 06-01-2024 MCV (RBC) [Entitic vol] 88.7 fL 81.0-99.0 [facility] Monocytes Auto (Bld) [#/Vol] on 06-01-2024 Monocytes (Bld) [#/Vol] 0.8 10 3/uL 0.3-0.8 [facility] Monocytes/100 WBC Auto (Bld) on 06-01-2024 Monocytes/100 WBC (Bld) 8.5 % 1.7-12.0 [facility] Neutrophils Auto (Bld) [#/Vo l]on 06-01-2024 Neutrophils (Bld) [#/Vol] 6.6 10 3/uL High 1.4-6.5 [facility] Neutrophils/100 WBC Auto (Bl d)on 06-01-2024 Neutrophils/100 WBC (Bld) 73.3 % 43.0-75.0 [facility] No Panel Informationon 06-01 Eosinophils # (Auto) 0.1 10 3/uL 0.0-0.7 [facility] Immature Granulocyte # (Auto) 0.02 10 3/uL 0.00-0.03 [facility] 2.7 g/dL Low 3.4-5.0 [facility] 0.1 10 3/uL 0.0-0.7 [facility] 87 U/L 46-116 [facility] 18 U/L 14-59 [facility] 16 U/L 15-37 [facility] 20.5 [facility] 0.02 10 3/uL 0.00-0.03 [facility] 23.0 mg/dL High 7.0-18.0 [facility] 0.2 % 0.0-0.5 [facility] 8.7 mg/dL 8.5-10.1 [facility] 101 mmol/L 98-107 [facility] 28.9 mmol/L 21.0-32.0 [facility] 1.12 mg/dL High 0.55-1.02 [facility] 57 Low >=60 [facility] 232 mg/dL High 74-106 [facility] 4.1 mmol/L 3.5-5.1 [facility] 137 mmol/L 136-145 [facility] 0.5 mg/dL 0.2-1.0 [facility] 7.1 g/dL 6.4-8.2 [facility] Platelet mean volume Auto (B ld) [Entitic vol]on 06-01-2024 Platelet mean volume (Bld) [Entitic vol] 11.1 fL 9.5-13.5 [facility] Platelets Auto (Bld) [#/Vol] on 06-01-2024 Platelets (Bld) [#/Vol] 162 10 3/uL 150-450 [facility] RBC Auto (Bld) [#/Vol]on RBC (Bld) [#/Vol] 4.24 10 6/uL 4.20-5.40 [facility] Serum or plasma albumin/glob ulin mass ratioon 06-01-2024 Albumin/Globulin [Mass ratio] 0.6 {ratio} [facility] Serum or plasma anion gap de terminationon 06-01-2024 Anion gap [Moles/Vol] 11.2 [facility] Basophils Auto (Bld) [#/Vol] on 05-26-2024 Basophils (Bld) [#/Vol] 0.1 10 3/uL 0.0-0.1 [facility] Basophils/100 WBC Auto (Bld) on 05-26-2024 Basophils/100 WBC (Bld) 1.1 % 0.2-2.0 [facility] Eosinophils/100 WBC Auto (Bl d)on 05-26-2024 Eosinophils/100 WBC (Bld) 2.1 % 0.9-7.0 [facility] Erythrocyte distribution wid th Auto (RBC) [Ratio]on 05-26-2024 Erythrocyte distribution width (RBC) [Ratio] 14.0 % 11.0-15.0 [facility] Estimated glomerular filtrat ion rate (GFR) non- Americanon 05-26-2024 GFR/1.73 sq M.predicted among non-blacks MDRD (S/P/Bld) [Vol rate/Area] 40 mL/min/{1.73_m2} Low >=60 [facility] Globulin Calc (S) [Mass/Vol] on 05-26-2024 Globulin (S) [Mass/Vol] 4.4 g/dL [facility] Hematocrit Auto (Bld) [Volum e fraction]on 05-26-2024 Hematocrit (Bld) [Volume fraction] 35.9 % Low 36.0-48.0 [facility] Hemoglobin [Mass/volume] in Bloodon 05-26-2024 Hemoglobin (Bld) [Mass/Vol] 12.0 g/dL 12.0-16.0 [facility] Laboratory - Chemistry and C hemistry - challengeon 05-26-2024 Albumin [Mass/Vol] 2.7 g/dL Low 3.4-5.0 [facility] ALP [Catalytic activity/Vol] 88 U/L 46-116 [facility] ALT [Catalytic activity/Vol] 20 U/L 14-59 [facility] AST [Catalytic activity/Vol] 12 U/L Low 15-37 [facility] Bilirubin [Mass/Vol] 0.5 mg/dL 0.2-1.0 [facility] Calcium [Mass/Vol] 8.9 mg/dL 8.5-10.1 [facility] Chloride [Moles/Vol] 104 mmol/L 98-107 [facility] CO2 [Moles/Vol] 26.7 mmol/L 21.0-32.[address] [facility] Creatinine [Mass/Vol] 1.29 mg/dL High 0.55-1.02 [facility] Free T4 [Mass/Vol] 1.19 ng/dL 0.76-1.46 [facility] GFR/1.73 sq M.predicted MDRD (S/P/Bld) [Vol rate/Area] 49 mL/min/{1.73_m2} Low >=60 [facility] Glucose [Mass/Vol] 233 mg/dL High 74-106 [facility] Natriuretic peptide B (Bld) [Mass/Vol] 2687.0 pg/mL High <=1800.0 [facility] Comment on above: RESULTS CALLED TO DR Miranda ALVAREZ IN ER BY Mira Edwards [phone] Potassium [Moles/Vol] 4.0 mmol/L 3.5-5.1 [facility] Protein [Mass/Vol] 7.1 g/dL 6.4-8.2 [facility] Sodium [Moles/Vol] 140 mmol/L 136-145 [facility] TSH Qn 4.487 m[IU]/L High 0.358-3.740 [facility] Urea nitrogen [Mass/Vol] 33.0 mg/dL High 7.0-18.0 [facility] Urea nitrogen/Creatinine [Mass ratio] 25.6 mg/mg [facility] Laboratory - Hematology and Cell countson 05-26-2024 Immature granulocytes/100 WBC (Bld) 0.1 % 0.0-0.5 [facility] Laboratory - Microbiology an d Antimicrobial susceptibilityon 05-26-2024 S. pyogenes Ag Ql (Unsp spec) Negative [facility] SARS-CoV-2 (COVID-19) RNA FERN+probe Ql (Unsp spec) Not detected NOT DETECTE [facility] Comment on above: THIS TEST IS NOT PEREZ ROVDED BY THE FDA. It has beenauthorized for use under an Emergency Use Authorization. SARS-CoV-2 (COVID-19) RNA FERN+probe Ql (Unsp spec) See comment NOT DETECTE [facility] Comment on above: COVID AG PERFORMED-- - 06/06/24 1120 ---SARS-CoV-2 FERN previously reported as: NOT DETECTEDTHIS TEST IS NOT APPROVDED BY THE FDA. It has beenauthorized for use under an Emergency Use Authorization. SARS-CoV-2 (COVID-19) RNA FERN+probe Ql (Unsp spec) Negative NEGATIVE [facility] Comment on above: This test has [...] (Bld) [#/Vol] 7.3 10 3/uL 4.0-11.0 [facility] Lymphocytes Auto (Bld) [#/Vo l]on 05-26-2024 Lymphocytes (Bld) [#/Vol] 1.3 10 3/uL 1.2-3.8 [facility] Lymphocytes/100 WBC Auto (Bl d)on 05-26-2024 Lymphocytes/100 WBC (Bld) 18.4 % Low 20.5-60.0 [facility] MCH Auto (RBC) [Entitic mass ]on 05-26-2024 MCH (RBC) [Entitic mass] 30.4 pg 26.7-34.0 [facility] MCHC Auto (RBC) [Mass/Vol]on 05-26-2024 MCHC (RBC) [Mass/Vol] 33.4 g/dL 29.9-35.2 [facility] MCV Auto (RBC) [Entitic vol] on 05-26-2024 MCV (RBC) [Entitic vol] 90.9 fL 81.0-99.0 [facility] Monocytes Auto (Bld) [#/Vol] on 05-26-2024 Monocytes (Bld) [#/Vol] 0.7 10 3/uL 0.3-0.8 [facility] Monocytes/100 WBC Auto (Bld) on 05-26-2024 Monocytes/100 WBC (Bld) 9.5 % 1.7-12.0 [facility] Neutrophils Auto (Bld) [#/Vo l]on 05-26-2024 Neutrophils (Bld) [#/Vol] 5.0 10 3/uL 1.4-6.5 [facility] Neutrophils/100 WBC Auto (Bl d)on 05-26-2024 Neutrophils/100 WBC (Bld) 68.8 % 43.0-75.0 [facility] No Panel Informationon 05-26 See comment NOT DETECTE [facility] Negative [facility] Eosinophils # (Auto) 0.2 10 3/uL 0.0-0.7 [facility] Immature Granulocyte # (Auto) 0.01 10 3/uL 0.00-0.03 [facility] Monoscreen Negative NEGATIVE [facility] Troponin I High Sensitivity 14.9 pg/mL 4.0-51.3 [facility] Comment on above: CUT-OFF POINTS HAVE [...] AND CLINICAL INFORMATION. 1.19 ng/dL 0.76-1.46 [facility] 2687.0 pg/mL High <=1800.0 [facility] 14.9 pg/mL 4.0-51.3 [facility] 4.487 u[iU]/mL High 0.358-3.740 [facility] Negative NEGATIVE [facility] 2.7 g/dL Low 3.4-5.0 [facility] 0.2 10 3/uL 0.0-0.7 [facility] 88 U/L 46-116 [facility] 20 U/L 14-59 [facility] 12 U/L Low 15-37 [facility] 25.6 [facility] 0.01 10 3/uL 0.00-0.03 [facility] 33.0 mg/dL High 7.0-18.0 [facility] 0.1 % 0.0-0.5 [facility] 8.9 mg/dL 8.5-10.1 [facility] 104 mmol/L 98-107 [facility] 26.7 mmol/L 21.0-32.0 [facility] 1.29 mg/dL High 0.55-1.02 [facility] 49 Low >=60 [facility] 233 mg/dL High 74-106 [facility] 4.0 mmol/L 3.5-5.1 [facility] 140 mmol/L 136-145 [facility] 0.5 mg/dL 0.2-1.0 [facility] 7.1 g/dL 6.4-8.2 [facility] Platelet mean volume Auto (B ld) [Entitic vol]on 05-26-2024 Platelet mean volume (Bld) [Entitic vol] 10.6 fL 9.5-13.5 [facility] Platelets Auto (Bld) [#/Vol] on 05-26-2024 Platelets (Bld) [#/Vol] 215 10 3/uL 150-450 [facility] RBC Auto (Bld) [#/Vol]on RBC (Bld) [#/Vol] 3.95 10 6/uL Low 4.20-5.40 [facility] Serum or plasma albumin/glob ulin mass ratioon 05-26-2024 Albumin/Globulin [Mass ratio] 0.6 {ratio} [facility] Serum or plasma anion gap de terminationon 05-26-2024 Anion gap [Moles/Vol] 13.3 mmol/L [facility] Estimated glomerular filtrat ion rate (GFR) non- Americanon 05-20-2024 GFR/1.73 sq M.predicted among non-blacks MDRD (S/P/Bld) [Vol rate/Area] 39 mL/min/{1.73_m2} Low >=60 [facility] Laboratory - Chemistry and C hemistry - challengeon 05-20-2024 Calcium [Mass/Vol] 8.8 mg/dL 8.5-10.1 [facility] Chloride [Moles/Vol] 103 mmol/L 98-107 [facility] CO2 [Moles/Vol] 24.3 mmol/L 21.0-32.[address] [facility] Creatinine [Mass/Vol] 1.32 mg/dL High 0.55-1.02 [facility] GFR/1.73 sq M.predicted MDRD (S/P/Bld) [Vol rate/Area] 47 mL/min/{1.73_m2} Low >=60 [facility] Glucose [Mass/Vol] 243 mg/dL High 74-106 [facility] Potassium [Moles/Vol] 5.0 mmol/L 3.5-5.1 [facility] Sodium [Moles/Vol] 138 mmol/L 136-145 [facility] Urea nitrogen [Mass/Vol] 35.0 mg/dL High 7.0-18.0 [facility] Urea nitrogen/Creatinine [Mass ratio] 26.5 mg/mg [facility] No Panel Informationon 05-20 26.5 [facility] 35.0 mg/dL High 7.0-18.0 [facility] 8.8 mg/dL 8.5-10.1 [facility] 103 mmol/L 98-107 [facility] 24.3 mmol/L 21.0-32.0 [facility] 1.32 mg/dL High 0.55-1.02 [facility] 47 Low >=60 [facility] 243 mg/dL High 74-106 [facility] 5.0 mmol/L 3.5-5.1 [facility] 138 mmol/L 136-145 [facility] Serum or plasma anion gap de terminationon 05-20-2024 Anion gap [Moles/Vol] 15.7 [facility] Basophils Auto (Bld) [#/Vol] on 05-06-2024 Basophils (Bld) [#/Vol] 0.1 10 3/uL 0.0-0.1 [facility] Basophils/100 WBC Auto (Bld) on 05-06-2024 Basophils/100 WBC (Bld) 0.9 % 0.2-2.0 [facility] Eosinophils/100 WBC Auto (Bl d)on 05-06-2024 Eosinophils/100 WBC (Bld) 2.7 % 0.9-7.0 [facility] Erythrocyte distribution wid th Auto (RBC) [Ratio]on 05-06-2024 Erythrocyte distribution width (RBC) [Ratio] 13.5 % 11.0-15.0 [facility] Estimated glomerular filtrat ion rate (GFR) non- Americanon 05-06-2024 GFR/1.73 sq M.predicted among non-blacks MDRD (S/P/Bld) [Vol rate/Area] 32 mL/min/{1.73_m2} Low >=60 [facility] Globulin Calc (S) [Mass/Vol] on 05-06-2024 Globulin (S) [Mass/Vol] 4.3 g/dL [facility] Hematocrit Auto (Bld) [Volum e fraction]on 05-06-2024 Hematocrit (Bld) [Volume fraction] 34.6 % Low 36.0-48.0 [facility] Hemoglobin [Mass/volume] in Bloodon 05-06-2024 Hemoglobin (Bld) [Mass/Vol] 11.1 g/dL Low 12.0-16.0 [facility] Laboratory - Chemistry and C hemistry - challengeon 05-06-2024 Albumin [Mass/Vol] 2.5 g/dL Low 3.4-5.0 [facility] ALP [Catalytic activity/Vol] 75 U/L 46-116 [facility] ALT [Catalytic activity/Vol] 16 U/L 14-59 [facility] AST [Catalytic activity/Vol] 11 U/L Low 15-37 [facility] Bilirubin [Mass/Vol] 0.4 mg/dL 0.2-1.0 [facility] Calcium [Mass/Vol] 8.4 mg/dL Low 8.5-10.1 [facility] Chloride [Moles/Vol] 107 mmol/L 98-107 [facility] CO2 [Moles/Vol] 25.7 mmol/L 21.0-32.[address] [facility] Creatinine [Mass/Vol] 1.58 mg/dL High 0.55-1.02 [facility] GFR/1.73 sq M.predicted MDRD (S/P/Bld) [Vol rate/Area] 38 mL/min/{1.73_m2} Low >=60 [facility] Glucose [Mass/Vol] 146 mg/dL High 74-106 [facility] Magnesium [Mass/Vol] 1.6 mg/dL Low 1.8-2.4 [facility] Natriuretic peptide B (Bld) [Mass/Vol] 2762.0 pg/mL High <=1800.0 [facility] Comment on above: RESULTS CALLED TO CLARITZA SELLERS RN @BY Alla Venegas at [phone] Potassium [Moles/Vol] 4.1 mmol/L 3.5-5.1 [facility] Protein [Mass/Vol] 6.8 g/dL 6.4-8.2 [facility] Sodium [Moles/Vol] 141 mmol/L 136-145 [facility] Urea nitrogen [Mass/Vol] 49.0 mg/dL High 7.0-18.0 [facility] Urea nitrogen/Creatinine [Mass ratio] 31.0 mg/mg [facility] Laboratory - Hematology and Cell countson 05-06-2024 Immature granulocytes/100 WBC (Bld) 0.1 % 0.0-0.5 [facility] Leukocytes [#/volume] correc gali for nucleated erythrocytes in Blood by Automated counon 05-06-2024 WBC corrected for nucl RBC Auto (Bld) [#/Vol] 6.7 10 3/uL 4.0-11.0 [facility] Lymphocytes Auto (Bld) [#/Vo l]on 05-06-2024 Lymphocytes (Bld) [#/Vol] 1.5 10 3/uL 1.2-3.8 [facility] Lymphocytes/100 WBC Auto (Bl d)on 05-06-2024 Lymphocytes/100 WBC (Bld) 21.8 % 20.5-60.0 [facility] MCH Auto (RBC) [Entitic mass ]on 05-06-2024 MCH (RBC) [Entitic mass] 29.0 pg 26.7-34.0 [facility] MCHC Auto (RBC) [Mass/Vol]on 05-06-2024 MCHC (RBC) [Mass/Vol] 32.1 g/dL 29.9-35.2 [facility] MCV Auto (RBC) [Entitic vol] on 05-06-2024 MCV (RBC) [Entitic vol] 90.3 fL 81.0-99.0 [facility] Monocytes Auto (Bld) [#/Vol] on 05-06-2024 Monocytes (Bld) [#/Vol] 0.7 10 3/uL 0.3-0.8 [facility] Monocytes/100 WBC Auto (Bld) on 05-06-2024 Monocytes/100 WBC (Bld) 10.6 % 1.7-12.0 [facility] Neutrophils Auto (Bld) [#/Vo l]on 05-06-2024 Neutrophils (Bld) [#/Vol] 4.3 10 3/uL 1.4-6.5 [facility] Neutrophils/100 WBC Auto (Bl d)on 05-06-2024 Neutrophils/100 WBC (Bld) 63.9 % 43.0-75.0 [facility] No Panel Informationon 05-06 Eosinophils # (Auto) 0.2 10 3/uL 0.0-0.7 [facility] Immature Granulocyte # (Auto) 0.01 10 3/uL 0.00-0.03 [facility] Troponin I High Sensitivity 13.2 pg/mL 4.0-51.3 [facility] Comment on above: CUT-OFF POINTS HAVE [...] CLINICAL INFORMATION. 2762.0 pg/mL High <=1800.0 [facility] 13.2 pg/mL 4.0-51.3 [facility] 1.6 mg/dL Low 1.8-2.4 [facility] 2.5 g/dL Low 3.4-5.0 [facility] 0.2 10 3/uL 0.0-0.7 [facility] 75 U/L 46-116 [facility] 16 U/L 14-59 [facility] 11 U/L Low 15-37 [facility] 31.0 [facility] 0.01 10 3/uL 0.00-0.03 [facility] 49.0 mg/dL High 7.0-18.0 [facility] 0.1 % 0.0-0.5 [facility] 8.4 mg/dL Low 8.5-10.1 [facility] 107 mmol/L 98-107 [facility] 25.7 mmol/L 21.0-32.0 [facility] 1.58 mg/dL High 0.55-1.02 [facility] 38 Low >=60 [facility] 146 mg/dL High 74-106 [facility] 4.1 mmol/L 3.5-5.1 [facility] 141 mmol/L 136-145 [facility] 0.4 mg/dL 0.2-1.0 [facility] 6.8 g/dL 6.4-8.2 [facility] Platelet mean volume Auto (B ld) [Entitic vol]on 05-06-2024 Platelet mean volume (Bld) [Entitic vol] 11.3 fL 9.5-13.5 [facility] Platelets Auto (Bld) [#/Vol] on 05-06-2024 Platelets (Bld) [#/Vol] 146 10 3/uL Low 150-450 [facility] RBC Auto (Bld) [#/Vol]on RBC (Bld) [#/Vol] 3.83 10 6/uL Low 4.20-5.40 [facility] Serum or plasma albumin/glob ulin mass ratioon 05-06-2024 Albumin/Globulin [Mass ratio] 0.6 {ratio} [facility] Serum or plasma anion gap de terminationon 05-06-2024 Anion gap [Moles/Vol] 12.4 [facility] Basophils Auto (Bld) [#/Vol] on 05-05-2024 Basophils (Bld) [#/Vol] 0.1 10 3/uL 0.0-0.1 [facility] Basophils/100 WBC Auto (Bld) on 05-05-2024 Basophils/100 WBC (Bld) 0.9 % 0.2-2.0 [facility] Eosinophils/100 WBC Auto (Bl d)on 05-05-2024 Eosinophils/100 WBC (Bld) 1.9 % 0.9-7.0 [facility] Erythrocyte distribution wid th Auto (RBC) [Ratio]on 05-05-2024 Erythrocyte distribution width (RBC) [Ratio] 13.4 % 11.0-15.0 [facility] Estimated glomerular filtrat ion rate (GFR) non- Americanon 05-05-2024 GFR/1.73 sq M.predicted among non-blacks MDRD (S/P/Bld) [Vol rate/Area] 29 mL/min/{1.73_m2} Low >=60 [facility] Globulin Calc (S) [Mass/Vol] on 05-05-2024 Globulin (S) [Mass/Vol] 4.4 g/dL [facility] Hematocrit Auto (Bld) [Volum e fraction]on 05-05-2024 Hematocrit (Bld) [Volume fraction] 33.8 % Low 36.0-48.0 [facility] Hemoglobin [Mass/volume] in Bloodon 05-05-2024 Hemoglobin (Bld) [Mass/Vol] 11.1 g/dL Low 12.0-16.0 [facility] Laboratory - Chemistry and C hemistry - challengeon 05-05-2024 Albumin [Mass/Vol] 2.6 g/dL Low 3.4-5.0 [facility] ALP [Catalytic activity/Vol] 74 U/L 46-116 [facility] ALT [Catalytic activity/Vol] 17 U/L 14-59 [facility] AST [Catalytic activity/Vol] 12 U/L Low 15-37 [facility] Bilirubin [Mass/Vol] 0.4 mg/dL 0.2-1.0 [facility] Calcium [Mass/Vol] 6.1 mg/dL Low 8.5-10.1 [facility] Chloride [Moles/Vol] 105 mmol/L 98-107 [facility] CO2 [Moles/Vol] 24.1 mmol/L 21.0-32.[address] [facility] Creatinine [Mass/Vol] 1.71 mg/dL High 0.55-1.02 [facility] GFR/1.73 sq M.predicted MDRD (S/P/Bld) [Vol rate/Area] 35 mL/min/{1.73_m2} Low >=60 [facility] Glucose [Mass/Vol] 202 mg/dL High 74-106 [facility] Magnesium [Mass/Vol] 1.5 mg/dL Low 1.8-2.4 [facility] Natriuretic peptide B (Bld) [Mass/Vol] 2725.0 pg/mL High <=1800.0 [facility] Comment on above: RESULTS CALLED TO Frances Bryant (Austyn)@BY Franchesca HuynhCARAMEL CUTTER HELPER at [phone] Potassium [Moles/Vol] 5.9 mmol/L High 3.5-5.1 [facility] Protein [Mass/Vol] 7.0 g/dL 6.4-8.2 [facility] Sodium [Moles/Vol] 139 mmol/L 136-145 [facility] Urea nitrogen [Mass/Vol] 69.0 mg/dL High 7.0-18.0 [facility] Urea nitrogen/Creatinine [Mass ratio] 40.4 mg/mg [facility] Laboratory - Hematology and Cell countson 05-05-2024 Immature granulocytes/100 WBC (Bld) 0.3 % 0.0-0.5 [facility] Leukocytes [#/volume] correc gali for nucleated erythrocytes in Blood by Automated counon 05-05-2024 WBC corrected for nucl RBC Auto (Bld) [#/Vol] 6.9 10 3/uL 4.0-11.0 [facility] Lymphocytes Auto (Bld) [#/Vo l]on 05-05-2024 Lymphocytes (Bld) [#/Vol] 1.2 10 3/uL 1.2-3.8 [facility] Lymphocytes/100 WBC Auto (Bl d)on 05-05-2024 Lymphocytes/100 WBC (Bld) 18.0 % Low 20.5-60.0 [facility] MCH Auto (RBC) [Entitic mass ]on 05-05-2024 MCH (RBC) [Entitic mass] 29.3 pg 26.7-34.0 [facility] MCHC Auto (RBC) [Mass/Vol]on 05-05-2024 MCHC (RBC) [Mass/Vol] 32.8 g/dL 29.9-35.2 [facility] MCV Auto (RBC) [Entitic vol] on 05-05-2024 MCV (RBC) [Entitic vol] 89.2 fL 81.0-99.0 [facility] Monocytes Auto (Bld) [#/Vol] on 05-05-2024 Monocytes (Bld) [#/Vol] 0.6 10 3/uL 0.3-0.8 [facility] Monocytes/100 WBC Auto (Bld) on 05-05-2024 Monocytes/100 WBC (Bld) 8.7 % 1.7-12.0 [facility] Neutrophils Auto (Bld) [#/Vo l]on 05-05-2024 Neutrophils (Bld) [#/Vol] 4.8 10 3/uL 1.4-6.5 [facility] Neutrophils/100 WBC Auto (Bl d)on 05-05-2024 Neutrophils/100 WBC (Bld) 70.2 % 43.0-75.0 [facility] No Panel Informationon 05-05 Eosinophils # (Auto) 0.1 10 3/uL 0.0-0.7 [facility] Immature Granulocyte # (Auto) 0.02 10 3/uL 0.00-0.03 [facility] Troponin I High Sensitivity 14.0 pg/mL 4.0-51.3 [facility] Comment on above: CUT-OFF POINTS HAVE [...] CLINICAL INFORMATION. 2725.0 pg/mL High <=1800.0 [facility] 14.0 pg/mL 4.0-51.3 [facility] 1.5 mg/dL Low 1.8-2.4 [facility] 2.6 g/dL Low 3.4-5.0 [facility] 0.1 10 3/uL 0.0-0.7 [facility] 74 U/L 46-116 [facility] 17 U/L 14-59 [facility] 12 U/L Low 15-37 [facility] 40.4 [facility] 0.02 10 3/uL 0.00-0.03 [facility] 69.0 mg/dL High 7.0-18.0 [facility] 0.3 % 0.0-0.5 [facility] 6.1 mg/dL Low 8.5-10.1 [facility] 105 mmol/L 98-107 [facility] 24.1 mmol/L 21.0-32.0 [facility] 1.71 mg/dL High 0.55-1.02 [facility] 35 Low >=60 [facility] 202 mg/dL High 74-106 [facility] 5.9 mmol/L High 3.5-5.1 [facility] 139 mmol/L 136-145 [facility] 0.4 mg/dL 0.2-1.0 [facility] 7.0 g/dL 6.4-8.2 [facility] Platelet mean volume Auto (B ld) [Entitic vol]on 05-05-2024 Platelet mean volume (Bld) [Entitic vol] 11.8 fL 9.5-13.5 [facility] Platelets Auto (Bld) [#/Vol] on 05-05-2024 Platelets (Bld) [#/Vol] 173 10 3/uL 150-450 [facility] RBC Auto (Bld) [#/Vol]on RBC (Bld) [#/Vol] 3.79 10 6/uL Low 4.20-5.40 [facility] Serum or plasma albumin/glob ulin mass ratioon 05-05-2024 Albumin/Globulin [Mass ratio] 0.6 {ratio} [facility] Serum or plasma anion gap de terminationon 05-05-2024 Anion gap [Moles/Vol] [facility]8 [facility] Basophils Auto (Bld) [#/Vol] on 05-04-2024 Basophils (Bld) [#/Vol] 0.1 10 3/uL 0.0-0.1 [facility] Basophils/100 WBC Auto (Bld) on 05-04-2024 Basophils/100 WBC (Bld) 0.9 % 0.2-2.0 [facility] Eosinophils/100 WBC Auto (Bl d)on 05-04-2024 Eosinophils/100 WBC (Bld) 1.7 % 0.9-7.0 [facility] Erythrocyte distribution wid th Auto (RBC) [Ratio]on 05-04-2024 Erythrocyte distribution width (RBC) [Ratio] 13.6 % 11.0-15.0 [facility] Estimated glomerular filtrat ion rate (GFR) non- Americanon 05-04-2024 GFR/1.73 sq M.predicted among non-blacks MDRD (S/P/Bld) [Vol rate/Area] 21 mL/min/{1.73_m2} Low >=60 [facility] Globulin Calc (S) [Mass/Vol] on 05-04-2024 Globulin (S) [Mass/Vol] 4.9 g/dL [facility] Hematocrit Auto (Bld) [Volum e fraction]on 05-04-2024 Hematocrit (Bld) [Volume fraction] 37.6 % 36.0-48.0 [facility] Hemoglobin [Mass/volume] in Bloodon 05-04-2024 Hemoglobin (Bld) [Mass/Vol] 12.0 g/dL 12.0-16.0 [facility] Laboratory - Chemistry and C hemistry - challengeon 05-04-2024 Bilirubin Ql (U) Negative NEGATIVE [facility] Glucose (U) [Mass/Vol] 250 mg/dL Abnormal NEGATIVE [facility] Ketones Ql (U) Negative NEGATIVE [facility] pH (U) 6.0 [pH] 5.0-9.0 [facility] Specific gravity (U) [Rel density] 1.015 1.005-1.025 [facility] Urobilinogen Qn (U) 0.2 {Meka'U}/dL 0.2-1.0 [facility] Albumin [Mass/Vol] 2.8 g/dL Low 3.4-5.0 [facility] ALP [Catalytic activity/Vol] 86 U/L 46-116 [facility] ALT [Catalytic activity/Vol] 16 U/L 14-59 [facility] Ammonia (P) [Moles/Vol] 12 umol/L 11-32 [facility] AST [Catalytic activity/Vol] 8 U/L Low 15-37 [facility] Bilirubin [Mass/Vol] 0.4 mg/dL 0.2-1.0 [facility] Calcium [Mass/Vol] 8.8 mg/dL 8.5-10.1 [facility] Chloride [Moles/Vol] 101 mmol/L 98-107 [facility] CO2 [Moles/Vol] 22.4 mmol/L 21.0-32.[address] [facility] Creatinine [Mass/Vol] 2.24 mg/dL High 0.55-1.02 [facility] GFR/1.73 sq M.predicted MDRD (S/P/Bld) [Vol rate/Area] 26 mL/min/{1.73_m2} Low >=60 [facility] Glucose [Mass/Vol] 369 mg/dL High 74-106 [facility] Lactate [Moles/Vol] 1.2 mmol/L 0.4-2.0 [facility] Magnesium [Mass/Vol] 1.7 mg/dL Low 1.8-2.4 [facility] Natriuretic peptide B (Bld) [Mass/Vol] 2342.0 pg/mL High <=1800.0 [facility] Comment on above: RESULTS CALLED TO RENETTA Renteria RN @BY Andrea Long MLTat [phone] Potassium [Moles/Vol] 5.6 mmol/L High 3.5-5.1 [facility] Protein [Mass/Vol] 7.7 g/dL 6.4-8.2 [facility] Sodium [Moles/Vol] 134 mmol/L Low 136-145 [facility] T4 [Mass/Vol] 11.80 ug/dL 4.80-13.90 [facility] TSH Qn 0.933 m[IU]/L 0.358-3.740 [facility] Urea nitrogen [Mass/Vol] 86.0 mg/dL High 7.0-18.0 [facility] Comment on above: RESULTS CALLED TO RENETTA Renteria RN @BY Andrea Long MLTat 1126 Urea nitrogen/Creatinine [Mass ratio] 38.4 mg/mg [facility] Laboratory - Hematology and Cell countson 05-04-2024 Immature granulocytes/100 WBC (Bld) 0.3 % 0.0-0.5 [facility] Laboratory - Microbiology an d Antimicrobial susceptibilityOrdered By: Carl Morales on 05-04-2024 Bacteria identified Cx Nom (U) [facility] Laboratory - Specimen inform ationon 05-04-2024 Appearance (U) SLIGHTLY CLOUDY Abnormal CLEAR [facility] Color (U) YELLOW YELLOW [facility] Laboratory - Urinalysison Hyaline casts LM Ql (Urine sed) RARE [facility] Leukocyte esterase Test strip Ql (U) Negative NEGATIVE [facility] Mucus Ql (Urine sed) NONE SEEN NONE SEEN [facility] Nitrite Ql (U) Negative NEGATIVE [facility] Protein Ql (U) 100 mg/dL Abnormal NEG/TRACE [facility] Leukocytes [#/volume] correc gali for nucleated erythrocytes in Blood by Automated counon 05-04-2024 WBC corrected for nucl RBC Auto (Bld) [#/Vol] 6.9 10 3/uL 4.0-11.0 [facility] Lymphocytes Auto (Bld) [#/Vo l]on 05-04-2024 Lymphocytes (Bld) [#/Vol] 1.2 10 3/uL 1.2-3.8 [facility] Lymphocytes/100 WBC Auto (Bl d)on 05-04-2024 Lymphocytes/100 WBC (Bld) 17.8 % Low 20.5-60.0 [facility] MCH Auto (RBC) [Entitic mass ]on 05-04-2024 MCH (RBC) [Entitic mass] 29.3 pg 26.7-34.0 [facility] MCHC Auto (RBC) [Mass/Vol]on 05-04-2024 MCHC (RBC) [Mass/Vol] 31.9 g/dL 29.9-35.2 [facility] MCV Auto (RBC) [Entitic vol] on 05-04-2024 MCV (RBC) [Entitic vol] 91.9 fL 81.0-99.0 [facility] Monocytes Auto (Bld) [#/Vol] on 05-04-2024 Monocytes (Bld) [#/Vol] 0.7 10 3/uL 0.3-0.8 [facility] Monocytes/100 WBC Auto (Bld) on 05-04-2024 Monocytes/100 WBC (Bld) 10.4 % 1.7-12.0 [facility] Neutrophils Auto (Bld) [#/Vo l]on 05-04-2024 Neutrophils (Bld) [#/Vol] 4.8 10 3/uL 1.4-6.5 [facility] Neutrophils/100 WBC Auto (Bl d)on 05-04-2024 Neutrophils/100 WBC (Bld) 68.9 % 43.0-75.0 [facility] No Panel Informationon 05-04 Acetone Level Negative NEGATIVE [facility] Negative NEGATIVE [facility] Urine Bacteria MODERATE #/HPF Abnormal NONE SEEN [facility] Urine Culture Reflexed ALREADY ORDERED [facility] Urine Microscopic Review YES [facility] Urine Occult Blood MODERATE Abnormal NEGATIVE [facility] Urine Other Casts SEEN #/LPF Abnormal NONE SEEN [facility] Urine Other Crystals None Seen #/HPF None Seen [facility] Urine RBC 2-5 #/HPF Abnormal 0-2 [facility] Urine Squamous Epithelial Cells FEW #/LPF Abnormal NONE/RARE [facility] Urine WBC 2-5 #/HPF Abnormal NONE SEEN [facility] ALREADY ORDERED [facility] YES [facility] SEEN #/LPF Abnormal NONE SEEN [facility] Negative NEGATIVE [facility] None Seen #/HPF None Seen [facility] MODERATE Abnormal NEGATIVE [facility] MODERATE #/HPF Abnormal NONE SEEN [facility] SLIGHTLY CLOUDY Abnormal CLEAR [facility] RARE [facility] YELLOW YELLOW [facility] NONE SEEN NONE SEEN [facility] 250 mg/dL Abnormal NEGATIVE [facility] 2-5 #/HPF Abnormal NONE SEEN [facility] FEW #/LPF Abnormal NONE/RARE [facility] 6.0 5.0-9.0 [facility] 100 mg/dL Abnormal NEG/TRACE [facility] 1.015 1.005-1.025 [facility] 0.2 EU/dL 0.2-1.0 [facility] Eosinophils # (Auto) 0.1 10 3/uL 0.0-0.7 [facility] Immature Granulocyte # (Auto) 0.02 10 3/uL 0.00-0.03 [facility] Troponin I High Sensitivity 10.5 pg/mL 4.0-51.3 [facility] Comment on above: CUT-OFF POINTS HAVE [...] Pressure CO2 38.5 mm[Hg] Low 40.0-52.0 [facility] Venous Blood pH 7.353 7.330-7.[address] [facility] 0.933 u[iU]/mL 0.358-3.740 [facility] 11.80 ug/dL 4.80-13.90 [facility] 1.7 mg/dL Low 1.8-2.4 [facility] 2342.0 pg/mL High <=1800.0 [facility] 1.2 mmol/L 0.4-2.0 [facility] 10.5 pg/mL 4.0-51.3 [facility] 12 umol/L 11-32 [facility] 38.5 mm[Hg] Low 40.0-52.0 [facility] 7.353 7.330-7.430 [facility] 2.8 g/dL Low 3.4-5.0 [facility] 0.1 10 3/uL 0.0-0.7 [facility] 86 U/L 46-116 [facility] 16 U/L 14-59 [facility] 8 U/L Low 15-37 [facility] 38.4 [facility] 0.02 10 3/uL 0.00-0.03 [facility] 86.0 mg/dL High 7.0-18.0 [facility] 0.3 % 0.0-0.5 [facility] 8.8 mg/dL 8.5-10.1 [facility] 101 mmol/L 98-107 [facility] 22.4 mmol/L 21.0-32.0 [facility] 2.24 mg/dL High 0.55-1.02 [facility] 26 Low >=60 [facility] 369 mg/dL High 74-106 [facility] 5.6 mmol/L High 3.5-5.1 [facility] 134 mmol/L Low 136-145 [facility] 0.4 mg/dL 0.2-1.0 [facility] 7.7 g/dL 6.4-8.2 [facility] No Panel InformationOrdered By: LAMINE SINGH on 05-04-2024 Blood Culture 1 [facility] Platelet mean volume Auto (B ld) [Entitic vol]on 05-04-2024 Platelet mean volume (Bld) [Entitic vol] 11.4 fL 9.5-13.5 [facility] Platelets Auto (Bld) [#/Vol] on 05-04-2024 Platelets (Bld) [#/Vol] 160 10 3/uL 150-450 [facility] RBC Auto (Bld) [#/Vol]on RBC (Bld) [#/Vol] 4.09 10 6/uL Low 4.20-5.40 [facility] Serum or plasma albumin/glob ulin mass ratioon 05-04-2024 Albumin/Globulin [Mass ratio] 0.6 {ratio} [facility] Serum or plasma anion gap de terminationon 05-04-2024 Anion gap [Moles/Vol] 16.2 [facility] Basophils Auto (Bld) [#/Vol] on 05-01-2024 Basophils (Bld) [#/Vol] 0.1 10 3/uL 0.0-0.1 [facility] Basophils/100 WBC Auto (Bld) on 05-01-2024 Basophils/100 WBC (Bld) 0.7 % 0.2-2.0 [facility] Eosinophils/100 WBC Auto (Bl d)on 05-01-2024 Eosinophils/100 WBC (Bld) 2.3 % 0.9-7.0 [facility] Erythrocyte distribution wid th Auto (RBC) [Ratio]on 05-01-2024 Erythrocyte distribution width (RBC) [Ratio] 13.6 % 11.0-15.0 [facility] Estimated glomerular filtrat ion rate (GFR) non- Americanon 05-01-2024 GFR/1.73 sq M.predicted among non-blacks MDRD (S/P/Bld) [Vol rate/Area] 22 mL/min/{1.73_m2} Low >=60 [facility] Globulin Calc (S) [Mass/Vol] on 05-01-2024 Globulin (S) [Mass/Vol] 4.4 g/dL [facility] Hematocrit Auto (Bld) [Volum e fraction]on 05-01-2024 Hematocrit (Bld) [Volume fraction] 37.5 % 36.0-48.0 [facility] Hemoglobin [Mass/volume] in Bloodon 05-01-2024 Hemoglobin (Bld) [Mass/Vol] 12.1 g/dL 12.0-16.0 [facility] Laboratory - Chemistry and C hemistry - challengeon 05-01-2024 Calcium [Mass/Vol] 9.2 mg/dL 8.5-10.1 [facility] Chloride [Moles/Vol] 104 mmol/L 98-107 [facility] CO2 [Moles/Vol] 23.2 mmol/L 21.0-32.[address] [facility] Creatinine [Mass/Vol] 2.14 mg/dL High 0.55-1.02 [facility] GFR/1.73 sq M.predicted MDRD (S/P/Bld) [Vol rate/Area] 27 mL/min/{1.73_m2} Low >=60 [facility] Glucose [Mass/Vol] 220 mg/dL High 74-106 [facility] Potassium [Moles/Vol] 5.3 mmol/L High 3.5-5.1 [facility] Sodium [Moles/Vol] 134 mmol/L Low 136-145 [facility] Urea nitrogen [Mass/Vol] 87.0 mg/dL High 7.0-18.0 [facility] Comment on above: RESULTS CALLED TO Klaus Michaels RN @BY Sury French [phone] Urea nitrogen/Creatinine [Mass ratio] 40.7 mg/mg [facility] Albumin [Mass/Vol] 2.8 g/dL Low 3.4-5.0 [facility] ALP [Catalytic activity/Vol] 80 U/L 46-116 [facility] ALT [Catalytic activity/Vol] 16 U/L 14-59 [facility] AST [Catalytic activity/Vol] 11 U/L Low 15-37 [facility] Bilirubin [Mass/Vol] 0.4 mg/dL 0.2-1.0 [facility] Natriuretic peptide B (Bld) [Mass/Vol] 1624.0 pg/mL <=1800.0 [facility] Protein [Mass/Vol] 7.2 g/dL 6.4-8.2 [facility] Laboratory - Hematology and Cell countson 05-01-2024 Immature granulocytes/100 WBC (Bld) 0.1 % 0.0-0.5 [facility] Leukocytes [#/volume] correc gali for nucleated erythrocytes in Blood by Automated counon 05-01-2024 WBC corrected for nucl RBC Auto (Bld) [#/Vol] 7.4 10 3/uL 4.0-11.0 [facility] Lymphocytes Auto (Bld) [#/Vo l]on 05-01-2024 Lymphocytes (Bld) [#/Vol] 2.2 10 3/uL 1.2-3.8 [facility] Lymphocytes/100 WBC Auto (Bl d)on 05-01-2024 Lymphocytes/100 WBC (Bld) 29.4 % 20.5-60.0 [facility] MCH Auto (RBC) [Entitic mass ]on 05-01-2024 MCH (RBC) [Entitic mass] 29.2 pg 26.7-34.0 [facility] MCHC Auto (RBC) [Mass/Vol]on 05-01-2024 MCHC (RBC) [Mass/Vol] 32.3 g/dL 29.9-35.2 [facility] MCV Auto (RBC) [Entitic vol] on 05-01-2024 MCV (RBC) [Entitic vol] 90.4 fL 81.0-99.0 [facility] Monocytes Auto (Bld) [#/Vol] on 05-01-2024 Monocytes (Bld) [#/Vol] 0.9 10 3/uL High 0.3-0.8 [facility] Monocytes/100 WBC Auto (Bld) on 05-01-2024 Monocytes/100 WBC (Bld) 11.5 % 1.7-12.0 [facility] Neutrophils Auto (Bld) [#/Vo l]on 05-01-2024 Neutrophils (Bld) [#/Vol] 4.1 10 3/uL 1.4-6.5 [facility] Neutrophils/100 WBC Auto (Bl d)on 05-01-2024 Neutrophils/100 WBC (Bld) 56.0 % 43.0-75.0 [facility] No Panel Informationon 05-01 40.7 [facility] 87.0 mg/dL High 7.0-18.0 [facility] 9.2 mg/dL 8.5-10.1 [facility] 104 mmol/L 98-107 [facility] 23.2 mmol/L 21.0-32.0 [facility] 2.14 mg/dL High 0.55-1.02 [facility] 27 Low >=60 [facility] 220 mg/dL High 74-106 [facility] 5.3 mmol/L High 3.5-5.1 [facility] 134 mmol/L Low 136-145 [facility] Eosinophils # (Auto) 0.2 10 3/uL 0.0-0.7 [facility] Immature Granulocyte # (Auto) 0.01 10 3/uL 0.00-0.03 [facility] 1624.0 pg/mL <=1800.0 [facility] 2.8 g/dL Low 3.4-5.0 [facility] 0.2 10 3/uL 0.0-0.7 [facility] 80 U/L 46-116 [facility] 16 U/L 14-59 [facility] 11 U/L Low 15-37 [facility] 0.01 10 3/uL 0.00-0.03 [facility] 0.1 % 0.0-0.5 [facility] 0.4 mg/dL 0.2-1.0 [facility] 7.2 g/dL 6.4-8.2 [facility] Platelet mean volume Auto (B ld) [Entitic vol]on 05-01-2024 Platelet mean volume (Bld) [Entitic vol] 11.6 fL 9.5-13.5 [facility] Platelets Auto (Bld) [#/Vol] on 05-01-2024 Platelets (Bld) [#/Vol] 151 10 3/uL 150-450 [facility] RBC Auto (Bld) [#/Vol]on RBC (Bld) [#/Vol] 4.15 10 6/uL Low 4.20-5.40 [facility] Serum or plasma albumin/glob ulin mass ratioon 05-01-2024 Albumin/Globulin [Mass ratio] 0.6 {ratio} [facility] Serum or plasma anion gap de terminationon 05-01-2024 Anion gap [Moles/Vol] 12.1 mmol/L [facility] Basophils Auto (Bld) [#/Vol] on 04-30-2024 Basophils (Bld) [#/Vol] 0.1 10 3/uL 0.0-0.1 [facility] Basophils/100 WBC Auto (Bld) on 04-30-2024 Basophils/100 WBC (Bld) 0.9 % 0.2-2.0 [facility] Eosinophils/100 WBC Auto (Bl d)on 04-30-2024 Eosinophils/100 WBC (Bld) 2.4 % 0.9-7.0 [facility] Erythrocyte distribution wid th Auto (RBC) [Ratio]on 04-30-2024 Erythrocyte distribution width (RBC) [Ratio] 13.5 % 11.0-15.0 [facility] Estimated glomerular filtrat ion rate (GFR) non- Americanon 04-30-2024 GFR/1.73 sq M.predicted among non-blacks MDRD (S/P/Bld) [Vol rate/Area] 15 mL/min/{1.73_m2} Low >=60 [facility] Fibrin D-dimer [Presence] in Platelet poor plasma by Latex agglutinationon 04-30-2024 Fibrin D-dimer LA Ql (PPP) 0.24 mg/L FEU <=0.59 [facility] Comment on above: Increases in D-Dimer [...] (Bld) [Volume fraction] 38.6 % 36.0-48.0 [facility] Hemoglobin [Mass/volume] in Bloodon 04-30-2024 Hemoglobin (Bld) [Mass/Vol] 12.5 g/dL 12.0-16.0 [facility] Laboratory - Chemistry and C hemistry - challengeon 04-30-2024 Calcium [Mass/Vol] 9.0 mg/dL 8.5-10.1 [facility] Chloride [Moles/Vol] 100 mmol/L 98-107 [facility] CO2 [Moles/Vol] 24.4 mmol/L 21.0-32.[address] [facility] Creatinine [Mass/Vol] 3.02 mg/dL High 0.55-1.02 [facility] GFR/1.73 sq M.predicted MDRD (S/P/Bld) [Vol rate/Area] 18 mL/min/{1.73_m2} Low >=60 [facility] Glucose [Mass/Vol] 271 mg/dL High 74-106 [facility] Magnesium [Mass/Vol] 1.8 mg/dL 1.8-2.4 [facility] Natriuretic peptide B (Bld) [Mass/Vol] 1485.0 pg/mL <=1800.0 [facility] Potassium [Moles/Vol] 5.3 mmol/L High 3.5-5.1 [facility] Sodium [Moles/Vol] 133 mmol/L Low 136-145 [facility] Urea nitrogen [Mass/Vol] 99.0 mg/dL High 7.0-18.0 [facility] Comment on above: RESULTS CALLED TO Yoel ButtsRN)@BY Franchesca Huynh MLT at [phone] Urea nitrogen/Creatinine [Mass ratio] 32.8 mg/mg [facility] Laboratory - Hematology and Cell countson 04-30-2024 Immature granulocytes/100 WBC (Bld) 0.1 % 0.0-0.5 [facility] Leukocytes [#/volume] correc gali for nucleated erythrocytes in Blood by Automated counon 04-30-2024 WBC corrected for nucl RBC Auto (Bld) [#/Vol] 7.5 10 3/uL 4.0-11.0 [facility] Lymphocytes Auto (Bld) [#/Vo l]on 04-30-2024 Lymphocytes (Bld) [#/Vol] 2.1 10 3/uL 1.2-3.8 [facility] Lymphocytes/100 WBC Auto (Bl d)on 04-30-2024 Lymphocytes/100 WBC (Bld) 27.8 % 20.5-60.0 [facility] MCH Auto (RBC) [Entitic mass ]on 04-30-2024 MCH (RBC) [Entitic mass] 29.6 pg 26.7-34.0 [facility] MCHC Auto (RBC) [Mass/Vol]on 04-30-2024 MCHC (RBC) [Mass/Vol] 32.4 g/dL 29.9-35.2 [facility] MCV Auto (RBC) [Entitic vol] on 04-30-2024 MCV (RBC) [Entitic vol] 91.5 fL 81.0-99.0 [facility] Monocytes Auto (Bld) [#/Vol] on 04-30-2024 Monocytes (Bld) [#/Vol] 0.8 10 3/uL 0.3-0.8 [facility] Monocytes/100 WBC Auto (Bld) on 04-30-2024 Monocytes/100 WBC (Bld) 10.0 % 1.7-12.0 [facility] Neutrophils Auto (Bld) [#/Vo l]on 04-30-2024 Neutrophils (Bld) [#/Vol] 4.4 10 3/uL 1.4-6.5 [facility] Neutrophils/100 WBC Auto (Bl d)on 04-30-2024 Neutrophils/100 WBC (Bld) 58.8 % 43.0-75.0 [facility] No Panel Informationon 04-30 Troponin I High Sensitivity 12.6 pg/mL 4.0-51.3 [facility] Comment on above: CUT-OFF POINTS HAVE [...] AND CLINICAL INFORMATION. 1.8 mg/dL 1.8-2.4 [facility] 1485.0 pg/mL <=1800.0 [facility] 12.6 pg/mL 4.0-51.3 [facility] 32.8 [facility] 99.0 mg/dL High 7.0-18.0 [facility] 9.0 mg/dL 8.5-10.1 [facility] 100 mmol/L 98-107 [facility] 24.4 mmol/L 21.0-32.0 [facility] 3.02 mg/dL High 0.55-1.02 [facility] 18 Low >=60 [facility] 271 mg/dL High 74-106 [facility] 5.3 mmol/L High 3.5-5.1 [facility] 133 mmol/L Low 136-145 [facility] Eosinophils # (Auto) 0.2 10 3/uL 0.0-0.7 [facility] Immature Granulocyte # (Auto) 0.01 10 3/uL 0.00-0.03 [facility] 0.2 10 3/uL 0.0-0.7 [facility] 0.01 10 3/uL 0.00-0.03 [facility] 0.1 % 0.0-0.5 [facility] Platelet mean volume Auto (B ld) [Entitic vol]on 04-30-2024 Platelet mean volume (Bld) [Entitic vol] 12.2 fL 9.5-13.5 [facility] Platelets Auto (Bld) [#/Vol] on 04-30-2024 Platelets (Bld) [#/Vol] 221 10 3/uL 150-450 [facility] RBC Auto (Bld) [#/Vol]on RBC (Bld) [#/Vol] 4.22 10 6/uL 4.20-5.40 [facility] Serum or plasma anion gap de terminationon 04-30-2024 Anion gap [Moles/Vol] 13.9 mmol/L [facility] Basophils Auto (Bld) [#/Vol] on 03-28-2024 Basophils (Bld) [#/Vol] 0.1 10 3/uL 0.0-0.1 [facility] Basophils/100 WBC Auto (Bld) on 03-28-2024 Basophils/100 WBC (Bld) 0.9 % 0.2-2.0 [facility] Eosinophils/100 WBC Auto (Bl d)on 03-28-2024 Eosinophils/100 WBC (Bld) 1.7 % 0.9-7.0 [facility] Erythrocyte distribution wid th Auto (RBC) [Ratio]on 03-28-2024 Erythrocyte distribution width (RBC) [Ratio] 14.2 % 11.0-15.0 [facility] Estimated glomerular filtrat ion rate (GFR) non- Americanon 03-28-2024 GFR/1.73 sq M.predicted among non-blacks MDRD (S/P/Bld) [Vol rate/Area] 39 mL/min/{1.73_m2} Low >=60 [facility] Globulin Calc (S) [Mass/Vol] on 03-28-2024 Globulin (S) [Mass/Vol] 4.8 g/dL [facility] Hematocrit Auto (Bld) [Volum e fraction]on 03-28-2024 Hematocrit (Bld) [Volume fraction] 40.0 % 36.0-48.0 [facility] Hemoglobin [Mass/volume] in Bloodon 03-28-2024 Hemoglobin (Bld) [Mass/Vol] 12.6 g/dL 12.0-16.0 [facility] Laboratory - Chemistry and C hemistry - challengeon 03-28-2024 Albumin [Mass/Vol] 2.5 g/dL Low 3.4-5.0 [facility] ALP [Catalytic activity/Vol] 93 U/L 46-116 [facility] ALT [Catalytic activity/Vol] 9 U/L Low 14-59 [facility] AST [Catalytic activity/Vol] 10 U/L Low 15-37 [facility] Bilirubin [Mass/Vol] 0.9 mg/dL 0.2-1.0 [facility] Calcium [Mass/Vol] 8.5 mg/dL 8.5-10.1 [facility] Chloride [Moles/Vol] 96 mmol/L Low 98-107 [facility] CO2 [Moles/Vol] 27.1 mmol/L 21.0-32.[address] [facility] Creatinine [Mass/Vol] 1.33 mg/dL High 0.55-1.02 [facility] GFR/1.73 sq M.predicted MDRD (S/P/Bld) [Vol rate/Area] 47 mL/min/{1.73_m2} Low >=60 [facility] Glucose [Mass/Vol] 261 mg/dL High 74-106 [facility] Magnesium [Mass/Vol] 1.8 mg/dL 1.8-2.4 [facility] Natriuretic peptide B (Bld) [Mass/Vol] 3338.0 pg/mL High <=1800.0 [facility] Comment on above: RESULTS CALLED TO Claritza Sellers (RN)@BY Franchesca Huynh MLT at 0554 Potassium [Moles/Vol] 3.8 mmol/L 3.5-5.1 [facility] Protein [Mass/Vol] 7.3 g/dL 6.4-8.2 [facility] Sodium [Moles/Vol] 133 mmol/L Low 136-145 [facility] Urea nitrogen [Mass/Vol] 36.0 mg/dL High 7.0-18.0 [facility] Urea nitrogen/Creatinine [Mass ratio] 27.1 mg/mg [facility] Laboratory - Hematology and Cell countson 03-28-2024 Immature granulocytes/100 WBC (Bld) 0.4 % 0.0-0.5 [facility] Leukocytes [#/volume] correc gali for nucleated erythrocytes in Blood by Automated counon 03-28-2024 WBC corrected for nucl RBC Auto (Bld) [#/Vol] 8.4 10 3/uL 4.0-11.0 [facility] Lymphocytes Auto (Bld) [#/Vo l]on 03-28-2024 Lymphocytes (Bld) [#/Vol] 1.8 10 3/uL 1.2-3.8 [facility] Lymphocytes/100 WBC Auto (Bl d)on 03-28-2024 Lymphocytes/100 WBC (Bld) 21.4 % 20.5-60.0 [facility] MCH Auto (RBC) [Entitic mass ]on 03-28-2024 MCH (RBC) [Entitic mass] 29.0 pg 26.7-34.0 [facility] MCHC Auto (RBC) [Mass/Vol]on 03-28-2024 MCHC (RBC) [Mass/Vol] 31.5 g/dL 29.9-35.2 [facility] MCV Auto (RBC) [Entitic vol] on 03-28-2024 MCV (RBC) [Entitic vol] 92.0 fL 81.0-99.0 [facility] Monocytes Auto (Bld) [#/Vol] on 03-28-2024 Monocytes (Bld) [#/Vol] 0.8 10 3/uL 0.3-0.8 [facility] Monocytes/100 WBC Auto (Bld) on 03-28-2024 Monocytes/100 WBC (Bld) 9.7 % 1.7-12.0 [facility] Neutrophils Auto (Bld) [#/Vo l]on 03-28-2024 Neutrophils (Bld) [#/Vol] 5.6 10 3/uL 1.4-6.5 [facility] Neutrophils/100 WBC Auto (Bl d)on 03-28-2024 Neutrophils/100 WBC (Bld) 65.9 % 43.0-75.0 [facility] No Panel Informationon 03-28 Eosinophils # (Auto) 0.1 10 3/uL 0.0-0.7 [facility] Immature Granulocyte # (Auto) 0.03 10 3/uL 0.00-0.03 [facility] 3338.0 pg/mL High <=1800.0 [facility] 1.8 mg/dL 1.8-2.4 [facility] 2.5 g/dL Low 3.4-5.0 [facility] 0.1 10 3/uL 0.0-0.7 [facility] 93 U/L 46-116 [facility] 9 U/L Low 14-59 [facility] 10 U/L Low 15-37 [facility] 27.1 [facility] 0.03 10 3/uL 0.00-0.03 [facility] 36.0 mg/dL High 7.0-18.0 [facility] 0.4 % 0.0-0.5 [facility] 8.5 mg/dL 8.5-10.1 [facility] 96 mmol/L Low 98-107 [facility] 27.1 mmol/L 21.0-32.0 [facility] 1.33 mg/dL High 0.55-1.02 [facility] 47 Low >=60 [facility] 261 mg/dL High 74-106 [facility] 3.8 mmol/L 3.5-5.1 [facility] 133 mmol/L Low 136-145 [facility] 0.9 mg/dL 0.2-1.0 [facility] 7.3 g/dL 6.4-8.2 [facility] Platelet mean volume Auto (B ld) [Entitic vol]on 03-28-2024 Platelet mean volume (Bld) [Entitic vol] 10.5 fL 9.5-13.5 [facility] Platelets Auto (Bld) [#/Vol] on 03-28-2024 Platelets (Bld) [#/Vol] 197 10 3/uL 150-450 [facility] RBC Auto (Bld) [#/Vol]on RBC (Bld) [#/Vol] 4.35 10 6/uL 4.20-5.40 [facility] Serum or plasma albumin/glob ulin mass ratioon 03-28-2024 Albumin/Globulin [Mass ratio] 0.5 {ratio} [facility] Serum or plasma anion gap de terminationon 03-28-2024 Anion gap [Moles/Vol] 13.7 [facility] Basophils Auto (Bld) [#/Vol] on 03-27-2024 Basophils (Bld) [#/Vol] 0.1 10 3/uL 0.0-0.1 [facility] Basophils/100 WBC Auto (Bld) on 03-27-2024 Basophils/100 WBC (Bld) 0.8 % 0.2-2.0 [facility] Eosinophils/100 WBC Auto (Bl d)on 03-27-2024 Eosinophils/100 WBC (Bld) 1.1 % 0.9-7.0 [facility] Erythrocyte distribution wid th Auto (RBC) [Ratio]on 03-27-2024 Erythrocyte distribution width (RBC) [Ratio] 14.2 % 11.0-15.0 [facility] Estimated glomerular filtrat ion rate (GFR) non- Americanon 03-27-2024 GFR/1.73 sq M.predicted among non-blacks MDRD (S/P/Bld) [Vol rate/Area] 44 mL/min/{1.73_m2} Low >=60 [facility] Globulin Calc (S) [Mass/Vol] on 03-27-2024 Globulin (S) [Mass/Vol] 4.6 g/dL [facility] Glucose mean value [Mass/vol ume] in Blood Estimated from glycated hemoglobinon 03-27-2024 Average glucose Estimated from glycated hemoglobin (Bld) [Mass/Vol] 275 mg/dL [facility] Hematocrit Auto (Bld) [Volum e fraction]on 03-27-2024 Hematocrit (Bld) [Volume fraction] 37.4 % 36.0-48.0 [facility] Hemoglobin [Mass/volume] in Bloodon 03-27-2024 Hemoglobin (Bld) [Mass/Vol] 12.1 g/dL 12.0-16.0 [facility] Laboratory - Chemistry and C hemistry - challengeon 03-27-2024 Albumin [Mass/Vol] 2.6 g/dL Low 3.4-5.0 [facility] ALP [Catalytic activity/Vol] 89 U/L 46-116 [facility] ALT [Catalytic activity/Vol] 12 U/L Low 14-59 [facility] AST [Catalytic activity/Vol] 9 U/L Low 15-37 [facility] Bilirubin [Mass/Vol] 0.9 mg/dL 0.2-1.0 [facility] Calcium [Mass/Vol] 9.1 mg/dL 8.5-10.1 [facility] Chloride [Moles/Vol] 99 mmol/L 98-107 [facility] CO2 [Moles/Vol] 28.8 mmol/L 21.0-32.[address] [facility] Creatinine [Mass/Vol] 1.19 mg/dL High 0.55-1.02 [facility] GFR/1.73 sq M.predicted MDRD (S/P/Bld) [Vol rate/Area] 53 mL/min/{1.73_m2} Low >=60 [facility] Glucose [Mass/Vol] 273 mg/dL High 74-106 [facility] Magnesium [Mass/Vol] 1.7 mg/dL Low 1.8-2.4 [facility] Natriuretic peptide B (Bld) [Mass/Vol] 4572.0 pg/mL High <=1800.0 [facility] Comment on above: RESULTS CALLED TO SA RA MIGUEL RN @BY Alla Kevin [id number] Potassium [Moles/Vol] 3.6 mmol/L 3.5-5.1 [facility] Protein [Mass/Vol] 7.2 g/dL 6.4-8.2 [facility] Sodium [Moles/Vol] 135 mmol/L Low 136-145 [facility] Urea nitrogen [Mass/Vol] 34.0 mg/dL High 7.0-18.0 [facility] Urea nitrogen/Creatinine [Mass ratio] 28.6 mg/mg [facility] Laboratory - Hematology and Cell countson 03-27-2024 HbA1c (Bld) [Mass fraction] 11.2 % High 4.5-6.2 [facility] Comment on above: ADA RECOMMENDED LIMI T 4.0 - 6.0ADA THERAPEUTIC TARGET < 7.0ACTION SUGGESTED> 7.0 Immature granulocytes/100 WBC (Bld) 0.3 % 0.0-0.5 [facility] Leukocytes [#/volume] correc gali for nucleated erythrocytes in Blood by Automated counon 03-27-2024 WBC corrected for nucl RBC Auto (Bld) [#/Vol] 9.7 10 3/uL 4.0-11.0 [facility] Lymphocytes Auto (Bld) [#/Vo l]on 03-27-2024 Lymphocytes (Bld) [#/Vol] 1.3 10 3/uL 1.2-3.8 [facility] Lymphocytes/100 WBC Auto (Bl d)on 03-27-2024 Lymphocytes/100 WBC (Bld) 13.3 % Low 20.5-60.0 [facility] MCH Auto (RBC) [Entitic mass ]on 03-27-2024 MCH (RBC) [Entitic mass] 29.2 pg 26.7-34.0 [facility] MCHC Auto (RBC) [Mass/Vol]on 03-27-2024 MCHC (RBC) [Mass/Vol] 32.4 g/dL 29.9-35.2 [facility] MCV Auto (RBC) [Entitic vol] on 03-27-2024 MCV (RBC) [Entitic vol] 90.3 fL 81.0-99.0 [facility] Monocytes Auto (Bld) [#/Vol] on 03-27-2024 Monocytes (Bld) [#/Vol] 0.8 10 3/uL 0.3-0.8 [facility] Monocytes/100 WBC Auto (Bld) on 03-27-2024 Monocytes/100 WBC (Bld) 8.4 % 1.7-12.0 [facility] Neutrophils Auto (Bld) [#/Vo l]on 03-27-2024 Neutrophils (Bld) [#/Vol] 7.4 10 3/uL High 1.4-6.5 [facility] Neutrophils/100 WBC Auto (Bl d)on 03-27-2024 Neutrophils/100 WBC (Bld) 76.1 % High 43.0-75.0 [facility] No Panel Informationon 03-27 Eosinophils # (Auto) 0.1 10 3/uL 0.0-0.7 [facility] Immature Granulocyte # (Auto) 0.03 10 3/uL 0.00-0.03 [facility] 4572.0 pg/mL High <=1800.0 [facility] 1.7 mg/dL Low 1.8-2.4 [facility] 11.2 % High 4.5-6.2 [facility] 2.6 g/dL Low 3.4-5.0 [facility] 0.1 10 3/uL 0.0-0.7 [facility] 89 U/L 46-116 [facility] 12 U/L Low 14-59 [facility] 9 U/L Low 15-37 [facility] 28.6 [facility] 0.03 10 3/uL 0.00-0.03 [facility] 34.0 mg/dL High 7.0-18.0 [facility] 0.3 % 0.0-0.5 [facility] 9.1 mg/dL 8.5-10.1 [facility] 99 mmol/L 98-107 [facility] 28.8 mmol/L 21.0-32.0 [facility] 1.19 mg/dL High 0.55-1.02 [facility] 53 Low >=60 [facility] 273 mg/dL High 74-106 [facility] 3.6 mmol/L 3.5-5.1 [facility] 135 mmol/L Low 136-145 [facility] 0.9 mg/dL 0.2-1.0 [facility] 7.2 g/dL 6.4-8.2 [facility] Platelet mean volume Auto (B ld) [Entitic vol]on 03-27-2024 Platelet mean volume (Bld) [Entitic vol] 10.6 fL 9.5-13.5 [facility] Platelets Auto (Bld) [#/Vol] on 03-27-2024 Platelets (Bld) [#/Vol] 204 10 3/uL 150-450 [facility] RBC Auto (Bld) [#/Vol]on RBC (Bld) [#/Vol] 4.14 10 6/uL Low 4.20-5.40 [facility] Serum or plasma albumin/glob ulin mass ratioon 03-27-2024 Albumin/Globulin [Mass ratio] 0.6 {ratio} [facility] Serum or plasma anion gap de terminationon 03-27-2024 Anion gap [Moles/Vol] 10.8 mmol/L [facility] Basophils Auto (Bld) [#/Vol] on 03-26-2024 Basophils (Bld) [#/Vol] 0.1 10 3/uL 0.0-0.1 [facility] Basophils/100 WBC Auto (Bld) on 03-26-2024 Basophils/100 WBC (Bld) 0.8 % 0.2-2.0 [facility] Eosinophils/100 WBC Auto (Bl d)on 03-26-2024 Eosinophils/100 WBC (Bld) 1.2 % 0.9-7.0 [facility] Erythrocyte distribution wid th Auto (RBC) [Ratio]on 03-26-2024 Erythrocyte distribution width (RBC) [Ratio] 14.5 % 11.0-15.0 [facility] Estimated glomerular filtrat ion rate (GFR) non- Americanon 03-26-2024 GFR/1.73 sq M.predicted among non-blacks MDRD (S/P/Bld) [Vol rate/Area] 46 mL/min/{1.73_m2} Low >=60 [facility] Glucose mean value [Mass/vol ume] in Blood Estimated from glycated hemoglobinon 05-15-2024 Average glucose Estimated from glycated hemoglobin (Bld) [Mass/Vol] 275 mg/dL [facility] Hematocrit Auto (Bld) [Volum e fraction]on 03-26-2024 Hematocrit (Bld) [Volume fraction] 40.1 % 36.0-48.0 [facility] Hemoglobin [Mass/volume] in Bloodon 03-26-2024 Hemoglobin (Bld) [Mass/Vol] 12.7 g/dL 12.0-16.0 [facility] Laboratory - Chemistry and C hemistry - challengeon 03-26-2024 Calcium [Mass/Vol] 9.1 mg/dL 8.5-10.1 [facility] Chloride [Moles/Vol] 102 mmol/L 98-107 [facility] CO2 [Moles/Vol] 28.5 mmol/L 21.0-32.[address] [facility] Creatinine [Mass/Vol] 1.14 mg/dL High 0.55-1.02 [facility] Free T4 [Mass/Vol] 1.29 ng/dL 0.76-1.46 [facility] GFR/1.73 sq M.predicted MDRD (S/P/Bld) [Vol rate/Area] 56 mL/min/{1.73_m2} Low >=60 [facility] Glucose [Mass/Vol] 246 mg/dL High 74-106 [facility] Natriuretic peptide B (Bld) [Mass/Vol] 2890.0 pg/mL High <=1800.0 [facility] Comment on above: RESULTS CALLED TO YOEL ROBIN RN @BY Alla Kunz 0556 Potassium [Moles/Vol] 4.3 mmol/L 3.5-5.1 [facility] Sodium [Moles/Vol] 136 mmol/L 136-145 [facility] TSH Qn 6.001 m[IU]/L High 0.358-3.740 [facility] Urea nitrogen [Mass/Vol] 35.0 mg/dL High 7.0-18.0 [facility] Urea nitrogen/Creatinine [Mass ratio] 30.7 mg/mg [facility] Laboratory - Hematology and Cell countson 03-26-2024 HbA1c (Bld) [Mass fraction] 11.2 % High 4.5-6.2 [facility] Comment on above: ADA RECOMMENDED LIMI T 4.0 - 6.0ADA THERAPEUTIC TARGET < 7.0ACTION SUGGESTED> 7.0 Immature granulocytes/100 WBC (Bld) 0.2 % 0.0-0.5 [facility] Leukocytes [#/volume] correc gali for nucleated erythrocytes in Blood by Automated counon 03-26-2024 WBC corrected for nucl RBC Auto (Bld) [#/Vol] 8.3 10 3/uL 4.0-11.0 [facility] Lymphocytes Auto (Bld) [#/Vo l]on 03-26-2024 Lymphocytes (Bld) [#/Vol] 1.4 10 3/uL 1.2-3.8 [facility] Lymphocytes/100 WBC Auto (Bl d)on 03-26-2024 Lymphocytes/100 WBC (Bld) 16.5 % Low 20.5-60.0 [facility] MCH Auto (RBC) [Entitic mass ]on 03-26-2024 MCH (RBC) [Entitic mass] 29.1 pg 26.7-34.0 [facility] MCHC Auto (RBC) [Mass/Vol]on 03-26-2024 MCHC (RBC) [Mass/Vol] 31.7 g/dL 29.9-35.2 [facility] MCV Auto (RBC) [Entitic vol] on 03-26-2024 MCV (RBC) [Entitic vol] 92.0 fL 81.0-99.0 [facility] Monocytes Auto (Bld) [#/Vol] on 03-26-2024 Monocytes (Bld) [#/Vol] 0.7 10 3/uL 0.3-0.8 [facility] Monocytes/100 WBC Auto (Bld) on 03-26-2024 Monocytes/100 WBC (Bld) 7.9 % 1.7-12.0 [facility] Neutrophils Auto (Bld) [#/Vo l]on 03-26-2024 Neutrophils (Bld) [#/Vol] 6.1 10 3/uL 1.4-6.5 [facility] Neutrophils/100 WBC Auto (Bl d)on 03-26-2024 Neutrophils/100 WBC (Bld) 73.4 % 43.0-75.0 [facility] No Panel Informationon 03-26 Eosinophils # (Auto) 0.1 10 3/uL 0.0-0.7 [facility] Immature Granulocyte # (Auto) 0.02 10 3/uL 0.00-0.03 [facility] Troponin I High Sensitivity 12.4 pg/mL 4.0-51.3 [facility] Comment on above: CUT-OFF POINTS HAVE [...] AND CLINICAL INFORMATION. 1.29 ng/dL 0.76-1.46 [facility] 6.001 u[iU]/mL High 0.358-3.740 [facility] 2890.0 pg/mL High <=1800.0 [facility] 12.4 pg/mL 4.0-51.3 [facility] 11.2 % High 4.5-6.2 [facility] 30.7 [facility] 35.0 mg/dL High 7.0-18.0 [facility] 0.1 10 3/uL 0.0-0.7 [facility] 9.1 mg/dL 8.5-10.1 [facility] 102 mmol/L 98-107 [facility] 28.5 mmol/L 21.0-32.0 [facility] 1.14 mg/dL High 0.55-1.02 [facility] 0.02 10 3/uL 0.00-0.03 [facility] 56 Low >=60 [facility] 0.2 % 0.0-0.5 [facility] 246 mg/dL High 74-106 [facility] 4.3 mmol/L 3.5-5.1 [facility] 136 mmol/L 136-145 [facility] Platelet mean volume Auto (B ld) [Entitic vol]on 03-26-2024 Platelet mean volume (Bld) [Entitic vol] 10.8 fL 9.5-13.5 [facility] Platelets Auto (Bld) [#/Vol] on 03-26-2024 Platelets (Bld) [#/Vol] 225 10 3/uL 150-450 [facility] RBC Auto (Bld) [#/Vol]on RBC (Bld) [#/Vol] 4.36 10 6/uL 4.20-5.40 [facility] Serum or plasma anion gap de terminationon 03-26-2024 Anion gap [Moles/Vol] 9.8 mmol/L [facility] GI PANEL (PCR)on 03-06-2023 Adenovirus F 40/41 Not detected Normal NOT DETECTED [facility] Comment on above: Performed By: #### P OCGLUC #### [facility] [address] [address] [address] Kasia Nath Astrovirus Not detected Normal NOT DETECTED [facility] Comment on above: Performed By: #### P OCGLUC #### [facility] [address] [address] [address] Kasia Chanel Diff toxin A/B Detected Critically abnormal NOT DETECTED [facility] Comment on above: Performed By: #### P OCGLUC #### [facility] [address] [address] [address] Kasia Nath Campylobacter Detected Critically abnormal NOT DETECTED [facility] Comment on above: Performed By: #### P OCGLUC #### [facility] [address] [address] [address] Kasia Naht Cryptosporidium Not detected Normal NOT DETECTED [facility] Comment on above: Performed By: #### P OCGLUC #### [facility] [address] [address] [address] Kasia Nath Cyclos. Cayetanensis Not detected Normal NOT DETECTED [facility] Comment on above: Performed By: #### P OCGLUC #### [facility] [address] [address] [address] Kasia Nath E. Coli [id number] Not Applicable Normal Not Applicable [facility] Comment on above: Performed By: #### P OCGLUC #### [facility] [address] [address] [address] Kasia Nath E. histolytica Not detected Normal NOT DETECTED [facility] Comment on above: Performed By: #### P OCGLUC #### [facility] [address] [place] [address] Dr. Kasia Nath EAEC Not detected Normal NOT DETECTED [facility] Comment on above: Performed By: #### P OCGLUC #### [facility] [address] [place] [address] Dr. Kasia Nath EIEC Not detected Normal NOT DETECTED [facility] Comment on above: Performed By: #### P OCGLUC #### [facility] [address] [place] [address] Dr. Kasia Nath EPEC Not detected Normal NOT DETECTED [facility] Comment on above: Performed By: #### P OCGLUC #### [facility] [address] [place] [address] Dr. Kasia Nath ETEC Not detected Normal NOT DETECTED [facility] Comment on above: Performed By: #### P OCGLUC #### [facility] [address] [place] [address] Dr. Kasia Nath G. Lamblia Not detected Normal NOT DETECTED [facility] Comment on above: Performed By: #### P OCGLUC #### [facility] [address] [place] [address] Dr. Kasia PAKL CONTROLS PASSED Normal [facility] Comment on above: Performed By: #### P OCGLUC #### [facility] [address] [place] [address] Dr. Kasia THOMPSON JUNO HEADER GI PANEL BACTERIA Normal T [facility] Comment on above: Performed By: #### P OCGLUC #### [facility] [address] [place] [address] Dr. Kasia THOMPSONHD ECOLI GI PANEL DIARRHEAGEN IC E.COLI / SHIGELLA Normal [facility] Comment on above: Performed By: #### P OCGLUC #### [facility] [address] [address] [address] Kasia GE INFO SEE BELOW Normal [facility] Comment on above: Result Comment: EAEC - Enteroaggregative E. Coli EPEC- Enteropathogenic E. Coli ETEC- Enterotoxigenic E. Coli lt/st STEC- Shigella-like toxin-producing E. Coli stx1/stx2 EIEC- Shigella/Enteroinvasive E. Coli Performed By: #### P OCGLUC #### [facility] [address] [address] [address] Kasia GE PARASITES GI PANEL PARASITES Normal [facility] Comment on above: Performed By: #### P OCGLUC #### [facility] [address] [address] [address] Kasia GE VIRUS GI PANEL VIRUSES Normal [facility] Comment on above: Performed By: #### P OCGLUC #### [facility] [address] [address] [address] Kasia Nath Norovirus GI/GII Not detected Normal NOT DETECTED [facility] Comment on above: Performed By: #### P OCGLUC #### [facility] [address] [address] [address] Kasia Nath P. Shigelloides Not detected Normal NOT DETECTED [facility] Comment on above: Performed By: #### P OCGLUC #### [facility] [address] [address] [address] Kasia Nath Rotavirus A Not detected Normal NOT DETECTED [facility] Comment on above: Performed By: #### P OCGLUC #### [facility] [address] [address] [address] Kasia Nath Salmonella Not detected Normal NOT DETECTED [facility] Comment on above: Performed By: #### P OCGLUC #### [facility] [address] [address] [address] Kasia Nath Sapovirus Not detected Normal NOT DETECTED [facility] Comment on above: Performed By: #### P OCGLUC #### [facility] [address] [place] [address] Dr. Kasia Nath STEC Not detected Normal NOT DETECTED [facility] Comment on above: Performed By: #### P OCGLUC #### [facility] [address] [place] [address] Dr. Kasia Nath Vibrio Not detected Normal NOT DETECTED [facility] Comment on above: Performed By: #### P OCGLUC #### [facility] [address] [place] [address] Dr. Kasia Nath Vibrio Cholera Not detected Normal NOT DETECTED [facility] Comment on above: Performed By: #### P OCGLUC #### [facility] [address] [place] [address] Dr. Kasia Nath Y. Enterocolitica Not detected Normal NOT DETECTED [facility] Comment on above: Performed By: #### P OCGLUC #### [facility] [address] [place] [address] Dr. Kasia Nath CBC AUTO DIFFon 02-14-2023 BASO # 0.0 103/ul Normal 0.0-0.1 [facility] Comment on above: Performed By: #### P OCGLUC #### [facility] [address] [place] [address] Dr. Kasia Nath Basophils/100 WBC (Bld) 0.5 % Normal 0.2-2.0 [facility] Comment on above: Performed By: #### P OCGLUC #### [facility] [address] [place] [address] Dr. Kasia Nath EO # 0.2 103/ul Normal 0.0-0.7 [facility] Comment on above: Performed By: #### P OCGLUC #### [facility] [address] [place] [address] Dr. Kasia Nath Eosinophils/100 WBC (Bld) 2.7 % Normal 0.9-7.0 [facility] Comment on above: Performed By: #### P OCGLUC #### [facility] [address] [place] [address] Dr. Kasia Nath Erythrocyte distribution width (RBC) [Ratio] 13.0 % Normal 11.0-15.0 [facility] Comment on above: Performed By: #### P OCGLUC #### [facility] [address] [place] [address] Dr. Kasia Nath Hematocrit (Bld) [Volume fraction] 35.9 % Critically low 36.0-48.0 [facility] Comment on above: Performed By: #### P OCGLUC #### [facility] [address] [place] [address] Dr. Kasia Nath Hemoglobin (Bld) [Mass/Vol] 12.0 g/dL Normal 12.0-16.0 [facility] Comment on above: Performed By: #### P OCGLUC #### [facility] [address] [place] [address] Dr. Kasia Nath IG # 0.02 10e3/ul Normal 0.00-0.03 [facility] Comment on above: Performed By: #### P OCGLUC #### [facility] [address] [place] [address] Dr. Kasia Nath IG % 0.3 % Normal 0.0-0.5 [facility] Comment on above: Performed By: #### P OCGLUC #### [facility] [address] [place] [address] Dr. Kasia Nath LYMPH # 1.8 103/ul Normal 1.2-3.8 [facility] Comment on above: Performed By: #### P OCGLUC #### [facility] [address] [place] [address] Dr. Kasia Nath Lymphocytes/100 WBC (Bld) 22.8 % Normal 20.5-60.0 [facility] Comment on above: Performed By: #### P OCGLUC #### [facility] [address] [place] [address] Dr. Kasia Nath MANUAL DIFF REQ NO Normal [facility] Comment on above: Performed By: #### P OCGLUC #### [facility] [address] [place] [address] Dr. Kasia Nath MCH (RBC) [Entitic mass] 29.4 pg Normal 26.7-34.0 [facility] Comment on above: Performed By: #### P OCGLUC #### [facility] [address] [address] [address] Kasia Nath MCHC (RBC) [Mass/Vol] 33.4 g/dL Normal 29.9-35.2 [facility] Comment on above: Performed By: #### P OCGLUC #### [facility] [address] [place] [address] Dr. Kasia Nath MCV (RBC) [Entitic vol] 88.0 fL Normal 81.0-99.0 [facility] Comment on above: Performed By: #### P OCGLUC #### [facility] [address] [place] [address] Dr. Kasia Nath MONO # 0.7 103/ul Normal 0.3-0.8 [facility] Comment on above: Performed By: #### P OCGLUC #### [facility] [address] [place] [address] Dr. Kasia Nath Monocytes/100 WBC (Bld) 9.3 % Normal 1.7-12.0 [facility] Comment on above: Performed By: #### P OCGLUC #### [facility] [address] [place] [address] Dr. Kasia Nath NEUT # 5.1 103/ul Normal 1.4-6.5 [facility] Comment on above: Performed By: #### P OCGLUC #### [facility] [address] [place] [address] Dr. Kasia Nath Neutrophils/100 WBC (Bld) 64.4 % Normal 43.0-75.0 [facility] Comment on above: Performed By: #### P OCGLUC #### [facility] [address] [place] [address] Dr. Kasia Nath Platelet mean volume (Bld) [Entitic vol] 11.7 fL Normal 9.5-13.5 [facility] Comment on above: Performed By: #### P OCGLUC #### [facility] [address] [place] [address] Dr. Kasia Nath PLT 175 103/ul Normal 150-450 [facility] Comment on above: Performed By: #### P OCGLUC #### [facility] [address] [address] [address] Kasia Nath RBC 4.08 106/ul Critically low 4.20-5.40 [facility] Comment on above: Performed By: #### P OCGLUC #### [facility] [address] [address] [address] Kasia Nath WBC 7.9 103/ul Normal 4.0-11.0 [facility] Comment on above: Performed By: #### P OCGLUC #### [facility] [address] [address] [address] Kasia Nath LIPASEon 02-14-2023 Lipase [Catalytic activity/Vol] 51.0 U/L Critically low 73.0-393.0 [facility] Comment on above: Performed By: #### L IPA, CMP ####[facility] [address] [address]Dr. Kasia Nath PROF 14(COMP METB)on 023 Albumin [Mass/Vol] 2.8 g/dL Critically low 3.4-5.0 [facility] Comment on above: Performed By: #### L IPA, CMP ####[facility] [address] [address]DrDoreen Nath Albumin/Globulin [Mass ratio] 0.7 {ratio} Normal [facility] Comment on above: Performed By: #### L IPA, CMP ####[facility] [address] [address]DrDoreen Nath ALP [Catalytic activity/Vol] 90 U/L Normal 46-116 [facility] Comment on above: Performed By: #### L IPA, CMP ####[facility] [address] [address]DrDoreen Nath ALT [Catalytic activity/Vol] 15 U/L Normal 14-59 [facility] Comment on above: Performed By: #### L IPA, CMP ####[facility] [address] [address]Dr. Kasia Nath Anion gap [Moles/Vol] 15.6 mmol/L Normal [facility] Comment on above: Performed By: #### L IPA, CMP ####[facility] [address] [address]Dr. Kasia Nath AST [Catalytic activity/Vol] 9 U/L Critically low 15-37 [facility] Comment on above: Performed By: #### L IPA, CMP ####[facility] [address] [place], [place] [address]Dr. Kasia Nath Bilirubin [Mass/Vol] 0.4 mg/dL Normal 0.2-1.0 [facility] Comment on above: Performed By: #### L IPA, CMP ####[facility] [address] [place], [place] [address]Dr. Kasia Nath Calcium [Mass/Vol] 9.1 mg/dL Normal 8.5-10.1 [facility] Comment on above: Performed By: #### L IPA, CMP ####[facility] [address] [place], [place] [address]Dr. Fartuncristy Nath Chloride [Moles/Vol] 104 mmol/L Normal 98-107 [facility] Comment on above: Performed By: #### L IPA, CMP ####[facility] [address] [place], [place] [address]Dr. Kasia Nath CO2 [Moles/Vol] 17.0 mmol/L Critically low 21.0-32.0 [facility] Comment on above: Performed By: #### L IPA, CMP ####[facility] [address] [place], [place] [address]Dr. Kasia Nath Creatinine [Mass/Vol] 1.78 mg/dL Critically high 0.55-1.02 [facility] Comment on above: Performed By: #### L IPA, CMP ####[facility] [address] [place], [place] [address]Dr. Kasia Nath EGFR-AF LITHUANIAN 34 mL/min/1.73m2 Critically low >=60 [facility] Comment on above: Performed By: #### L IPA, CMP ####[facility] [address] [id number]. Kasia Nath EGFR-NON AF LITHUANIAN 28 mL/min/1.73m2 Critically low >=60 [facility] Comment on above: Performed By: #### L IPA, CMP ####[facility] [address] [id number]. Kasia Nath Globulin (S) [Mass/Vol] 4.3 g/dL Normal [facility] Comment on above: Performed By: #### L IPA, CMP ####[facility] [address] [address]Dr. Kasia Nath Glucose [Mass/Vol] 248 mg/dL Critically high 74-106 [facility] Comment on above: Performed By: #### L IPA, CMP ####[facility] [address] [address]Dr. Kasia Nath Potassium [Moles/Vol] 4.6 mmol/L Normal 3.5-5.1 [facility] Comment on above: Performed By: #### L IPA, CMP ####[facility] [address] [place], [place] [address]Dr. Kasia Nath Protein [Mass/Vol] 7.1 g/dL Normal 6.4-8.2 [facility] Comment on above: Performed By: #### L IPA, CMP ####[facility] [address] [place], [place] [address]Dr. Kasia Nath Sodium [Moles/Vol] 132 mmol/L Critically low 136-145 [facility] Comment on above: Performed By: #### L IPA, CMP ####[facility] [address] [place], [place] [address]Dr. Kasia Nath Urea nitrogen [Mass/Vol] 78.0 mg/dL Critically high 7.0-18.0 [facility] Comment on above: Performed By: #### L IPA, CMP ####[facility] [address] [place], [place] [address]Dr. Kasia Nath Urea nitrogen/Creatinine [Mass ratio] 43.8 mg/mg Normal [facility] Comment on above: Performed By: #### L IPA, CMP ####[facility] [address] [place], [place] [address]Dr. Kasia Nath CBC AUTO DIFFon 02-13-2023 BASO # 0.0 103/ul Normal 0.0-0.1 [facility] Comment on above: Performed By: #### C BC ####[facility] [address] [place], [place] [address]Dr. Kasia Nath Basophils/100 WBC (Bld) 0.5 % Normal 0.2-2.0 [facility] Comment on above: Performed By: #### C BC ####[facility] [address] [place], [place] [address]Dr. Kasia Nath EO # 0.1 103/ul Normal 0.0-0.7 [facility] Comment on above: Performed By: #### C BC ####[facility] [address] [place], [place] [address]Dr. Kasia Nath Eosinophils/100 WBC (Bld) 1.0 % Normal 0.9-7.0 [facility] Comment on above: Performed By: #### C BC ####[facility] [address] [place], [place] [address]Dr. Kasia Nath Erythrocyte distribution width (RBC) [Ratio] 12.8 % Normal 11.0-15.0 [facility] Comment on above: Performed By: #### C BC ####[facility] [address] [place], [place] [address]Dr. Kasia Nath Hematocrit (Bld) [Volume fraction] 38.5 % Normal 36.0-48.0 [facility] Comment on above: Performed By: #### C BC ####[facility] [address] [place], [place] [address]Dr. Kasia Nath Hemoglobin (Bld) [Mass/Vol] 13.0 g/dL Normal 12.0-16.0 [facility] Comment on above: Performed By: #### C BC ####[facility] [address] [place], [place] [address]Dr. Kasia Nath IG # 0.02 10e3/ul Normal 0.00-0.03 [facility] Comment on above: Performed By: #### C BC ####[facility] [address] [address]Dr. Kasia Nath IG % 0.2 % Normal 0.0-0.5 [facility] Comment on above: Performed By: #### C BC ####[facility] [address] [address]DrDoreen Kasia Nath LYMPH # 0.9 103/ul Critically low 1.2-3.8 [facility] Comment on above: Performed By: #### C BC ####[facility] [address] [address]DrDoreen Kasia Portillo Lymphocytes/100 WBC (Bld) 10.0 % Critically low 20.5-60.0 [facility] Comment on above: Performed By: #### C BC ####[facility] [address] [place], [place] [address]Dr. Kasia Nath MANUAL DIFF REQ NO Normal [facility] Comment on above: Performed By: #### C BC ####[facility] [address] [address]Dr. Kasia Nath MCH (RBC) [Entitic mass] 29.5 pg Normal 26.7-34.0 [facility] Comment on above: Performed By: #### C BC ####[facility] [address] [address]Dr. Kasia Portillo MCHC (RBC) [Mass/Vol] 33.8 g/dL Normal 29.9-35.2 [facility] Comment on above: Performed By: #### C BC ####[facility] [address] [address]DrDoreen Kasia Portillo MCV (RBC) [Entitic vol] 87.5 fL Normal 81.0-99.0 [facility] Comment on above: Performed By: #### C BC ####[facility] [address] [place], [place] [address]DrDoreen Kasia Portillo MONO # 0.5 103/ul Normal 0.3-0.8 [facility] Comment on above: Performed By: #### C BC ####[facility] [address] [address]Dr. Kasia Nath Monocytes/100 WBC (Bld) 5.7 % Normal 1.7-12.0 [facility] Comment on above: Performed By: #### C BC ####[facility] [address] [address]Dr. Kasia Nath NEUT # 7.2 103/ul Critically high 1.4-6.5 [facility] Comment on above: Performed By: #### C BC ####[facility] [address] [address]Dr. Kasia Nath Neutrophils/100 WBC (Bld) 82.6 % Critically high 43.0-75.0 [facility] Comment on above: Performed By: #### C BC ####[facility] [address] [place], [place] [address]Dr. Kasia Nath Platelet mean volume (Bld) [Entitic vol] 11.8 fL Normal 9.5-13.5 [facility] Comment on above: Performed By: #### C BC ####[facility] [address] [place], [place] [address]Dr. Kasia Nath PLT 187 103/ul Normal 150-450 [facility] Comment on above: Performed By: #### C BC ####[facility] [address] [address]Dr. Kasia Nath RBC 4.40 106/ul Normal 4.20-5.40 [facility] Comment on above: Performed By: #### C BC ####[facility] [address] [place], [place] [address]Dr. Kasia Nath WBC 8.8 103/ul Normal 4.0-11.0 [facility] Comment on above: Performed By: #### C BC ####[facility] [id number]. Kasia Nath CT ABD/PELVIS WO CONon 02-13 [...] JACOB MCCURDY Date: 2023-02-13 14:40 Normal [facility] CULTURE URINEon 02-13-2023 CULTURE URINE Culture Observations : LIGHT GROWTH OF MIXED GENITAL VON. NO POTENTIAL PATHOGENS SEEN. Normal [facility] Comment on above: Performed By: #### U RCX ####[facility] [address] [place], [place] [address]Wj. Kasia Nath [facility]on SARS-CoV-2 (COVID-19) RNA FERN+probe Ql (Unsp spec) Not detected Normal NOT DETECTED [facility] Comment on above: Result Comment: [...] for this test is supported by the [place] of [employer] and Human Service's declaration that [...] used). Performed By: #### P OCGLUC #### [facility] [address] [place] [address] Dr. Kasia Nath GI PANEL (PCR)on 02-13-2023 Adenovirus F 40/41 Not detected Normal NOT DETECTED [facility] Comment on above: Performed By: #### C BC #### [facility] [address] [place] [address] Dr. Kasia Nath Astrovirus Not detected Normal NOT DETECTED [facility] Comment on above: Performed By: #### C BC #### [facility] [address] [place] [address] Dr. Kasia Del Real. Diff toxin A/B Not detected Normal NOT DETECTED [facility] Comment on above: Performed By: #### C BC #### [facility] [address] [place] [address] Dr. Kasia Nath Campylobacter Not detected Normal NOT DETECTED [facility] Comment on above: Performed By: #### C BC #### [facility] [address] [place] [address] Dr. Kasia Nath Cryptosporidium Not detected Normal NOT DETECTED [facility] Comment on above: Performed By: #### C BC #### [facility] [address] [place] [address] Dr. Kasia Nath Cyclos. Cayetanensis Not detected Normal NOT DETECTED [facility] Comment on above: Performed By: #### C BC #### [facility] [address] [place] [address] Dr. Kasia Nath E. Coli O157 Not Applicable Normal Not Applicable [facility] Comment on above: Performed By: #### C BC #### [facility] [address] [place] [address] Dr. Kasia Nath E. histolytica Not detected Normal NOT DETECTED [facility] Comment on above: Performed By: #### C BC #### [facility] [address] [place] [address] Dr. Kasia Nath EAEC Not detected Normal NOT DETECTED [facility] Comment on above: Performed By: #### C BC #### [facility] [address] [place] [address] Dr. Kasia Nath EIEC Not detected Normal NOT DETECTED [facility] Comment on above: Performed By: #### C BC #### [facility] [address] [place] [address] Dr. Kaisa Nath EPEC Not detected Normal NOT DETECTED [facility] Comment on above: Performed By: #### C BC #### [facility] [address] [place] [address] Dr. Kasia Nath ETEC Not detected Normal NOT DETECTED [facility] Comment on above: Performed By: #### C BC #### [facility] [address] [place] [address] Dr. Kasia Nath G. Lamblia Not detected Normal NOT DETECTED [facility] Comment on above: Performed By: #### C BC #### [facility] [address] [place] [address] Dr. Kasia MOYERANEL CONTROLS PASSED Normal [facility] Comment on above: Performed By: #### C BC #### [facility] [address] [place] [address] Dr. Kasia THOMPSON JUNO HEADER GI PANEL BACTERIA Normal [facility] Comment on above: Performed By: #### C BC #### [facility] [address] [place] [address] Dr. Kasia THOMPSONHD ECOLI GI PANEL DIARRHEAGEN IC E.COLI / SHIGELLA Normal [facility] Comment on above: Performed By: #### C BC #### [facility] [address] [place] [address] Dr. Kasia GE INFO SEE BELOW Normal [facility] Comment on above: Result Comment: EAEC - Enteroaggregative E. Coli EPEC- Enteropathogenic E. Coli ETEC- Enterotoxigenic E. Coli lt/st STEC- Shigella-like toxin-producing E. Coli stx1/stx2 EIEC- Shigella/Enteroinvasive E. Coli Performed By: #### C BC #### [facility] [address] [place] [address] Dr. Kasia GE PARASITES GI PANEL PARASITES Normal [facility] Comment on above: Performed By: #### C BC #### [facility] [address] [place] [address] Dr. Kasia GE VIRUS GI PANEL VIRUSES Normal [facility] Comment on above: Performed By: #### C BC #### [facility] [address] [place] [address] Dr. Kasia Nath Norovirus GI/GII Not detected Normal NOT DETECTED [facility] Comment on above: Performed By: #### C BC #### [facility] [address] [place] [address] Dr. Kasia Nath P. Shigelloides Not detected Normal NOT DETECTED [facility] Comment on above: Performed By: #### C BC #### [facility] [address] [place] [address] Dr. Kasia Nath Rotavirus A Not detected Normal NOT DETECTED [facility] Comment on above: Performed By: #### C BC #### [facility] [address] [place] [address] Dr. Kasia Nath Salmonella Not detected Normal NOT DETECTED [facility] Comment on above: Performed By: #### C BC #### [facility] [address] [place] [address] Dr. Kasia Nath Sapovirus Not detected Normal NOT DETECTED [facility] Comment on above: Performed By: #### C BC #### [facility] [address] [place] [address] Dr. Kasia Nath STEC Not detected Normal NOT DETECTED [facility] Comment on above: Performed By: #### C BC #### [facility] [address] [address] [address] Kasia Nath Vibrio Not detected Normal NOT DETECTED [facility] Comment on above: Performed By: #### C BC #### [facility] [address] [address] [address] Kasia Nath Vibrio Cholera Not detected Normal NOT DETECTED [facility] Comment on above: Performed By: #### C BC #### [facility] [address] [place] [address] Dr. Kasia Nath Y. Enterocolitica Not detected Normal NOT DETECTED [facility] Comment on above: Performed By: #### C BC #### [facility] [address] [place] [address] Dr. Kasia Nath LACTATE/LACTIC ACIDon 2022 Lactate [Moles/Vol] 1.7 mmol/L Normal 0.4-2.0 [facility] Comment on above: Performed By: #### L ACT ####[facility] [address] [place] [address]Dr. Kasia Nath LIPASEon 02-13-2023 Lipase [Catalytic activity/Vol] 82.0 U/L Normal 73.0-393.0 [facility] Comment on above: Performed By: #### L IPA, CMP #### [facility] [address] [place] [address] Dr. Kasia Nath POINT OF CARE GLUCOSEon Glucose [Mass/Vol] 229 mg/dL Critically high 74-106 [facility] Comment on above: Performed By: #### P OCGLUC #### [facility] [address] [place] [address] Dr. Kasia Nath Glucose [Mass/Vol] 474 mg/dL Critically high -106 [facility] Comment on above: Performed By: #### P OCGLUC #### [facility] [address] [place] [address] Dr. Kasia Nath PROF 14(COMP METB)on 023 Albumin [Mass/Vol] 3.4 g/dL Normal 3.4-5.0 [facility] Comment on above: Performed By: #### L IPA, CMP #### [facility] [address] [place] [address] Dr. Kasia Nath Albumin/Globulin [Mass ratio] 0.7 {ratio} Normal [facility] Comment on above: Performed By: #### L IPA, CMP #### [facility] [address] [address] [address] Kasia Nath ALP [Catalytic activity/Vol] 106 U/L Normal 46-116 [facility] Comment on above: Performed By: #### L IPA, CMP #### [facility] [address] [place] [address] Dr. Kasia Nath ALT [Catalytic activity/Vol] 21 U/L Normal 14-59 [facility] Comment on above: Performed By: #### L IPA, CMP #### [facility] [address] [place] [address] Dr. Kasia Nath Anion gap [Moles/Vol] 17.7 mmol/L Normal [facility] Comment on above: Performed By: #### L IPA, CMP #### [facility] [address] [place] [address] Dr. Kasia Nath AST [Catalytic activity/Vol] 11 U/L Critically low 15-37 [facility] Comment on above: Performed By: #### L IPA, CMP #### [facility] [address] [address] [address] Kasia Nath Bilirubin [Mass/Vol] 0.5 mg/dL Normal 0.2-1.0 [facility] Comment on above: Performed By: #### L IPA, CMP #### [facility] [address] [address] [address] Kasia Nath Calcium [Mass/Vol] 9.6 mg/dL Normal 8.5-10.1 [facility] Comment on above: Performed By: #### L IPA, CMP #### [facility] [address] [place] [address] Dr. Kasia Nath Chloride [Moles/Vol] 99 mmol/L Normal 98-107 [facility] Comment on above: Performed By: #### L IPA, CMP #### [facility] [address] [place] [address] Dr. Kasia Nath CO2 [Moles/Vol] 20.6 mmol/L Critically low 21.0-32.0 [facility] Comment on above: Performed By: #### L IPA, CMP #### [facility] [address] [place] [address] Dr. Kasia Nath Creatinine [Mass/Vol] 2.14 mg/dL Critically high 0.55-1.02 [facility] Comment on above: Performed By: #### L IPA, CMP #### [facility] [address] [place] [address] Dr. Kasia Nath EGFR-AF LITHUANIAN 27 mL/min/1.73m2 Critically low >=60 [facility] Comment on above: Performed By: #### L IPA, CMP #### [facility] [address] [place] [address] Dr. Kasia Nath EGFR-NON AF LITHUANIAN 22 mL/min/1.73m2 Critically low >=60 [facility] Comment on above: Performed By: #### L IPA, CMP #### [facility] [address] [place] [address] Dr. Kasia Nath Globulin (S) [Mass/Vol] 4.8 g/dL Normal [facility] Comment on above: Performed By: #### L IPA, CMP #### [facility] [address] [place] [address] Dr. Kasia Nath Glucose [Mass/Vol] 498 mg/dL Critically high 74-106 [facility] Comment on above: Performed By: #### L IPA, CMP #### [facility] [address] [place] [address] Dr. Kasia Nath Potassium [Moles/Vol] 5.3 mmol/L Critically high 3.5-5.1 [facility] Comment on above: Performed By: #### L IPA, CMP #### [facility] [address] [place] [address] Dr. Kasia Nath Protein [Mass/Vol] 8.2 g/dL Normal 6.4-8.2 [facility] Comment on above: Performed By: #### L IPA, CMP #### [facility] [address] [address] [address] Kasia Nath Sodium [Moles/Vol] 132 mmol/L Critically low 136-145 [facility] Comment on above: Performed By: #### L IPA, CMP #### [facility] [address] [address] [address] Kasia Nath Urea nitrogen [Mass/Vol] 86.0 mg/dL Critically high 7.0-18.0 [facility] Comment on above: Performed By: #### L IPA, CMP #### [facility] [address] [place] [address] Dr. Kasia Nath Urea nitrogen/Creatinine [Mass ratio] 40.2 mg/mg Normal [facility] Comment on above: Performed By: #### L IPA, CMP #### [facility] [address] [place] [address] Dr. Kasia Nath UA RANDOM W/MICROSCOPICon BACTERIA TRACE Abnormal NONE SEEN [facility] Comment on above: Performed By: #### U AMIC ####[facility] [address] [place], [place] [address]DrDoreen Nath Bilirubin Ql (U) Negative Normal NEGATIVE [facility] Comment on above: Performed By: #### U AMIC ####[facility] [address] [place] [address]DrDoreen Nath CAST SEEN Abnormal NONE SEEN [facility] Comment on above: Performed By: #### U AMIC ####[facility] [address] [place] [address]DrDoreen Nath Clarity (U) CLEAR Normal CLEAR [facility] Comment on above: Performed By: #### U AMIC ####[facility] [address] [place] [address]DrDoreen Nath Color (U) LT. YELLOW Normal YELLOW [facility] Comment on above: Performed By: #### U AMIC ####[facility] [address] [place] [id number]. Fartunlan Nath Crystals LM Nom (Urine sed) NONE SEEN Normal NONE SEEN [facility] Comment on above: Performed By: #### U AMIC ####[facility] [address] [place] [id number]. Yilan Nath Epithelial cells LM Ql (Urine sed) FEW Abnormal NONE SEEN /RARE [facility] Comment on above: Performed By: #### U AMIC ####[facility] [address] [place] [address]Dr. Fartunlan Nath Glucose Ql (U) >1000 Abnormal NEGATIVE [facility] Comment on above: Performed By: #### U AMIC ####[facility] [address] [place] [address]Dr. Fartunlan Naht Hemoglobin Ql (U) Negative Normal NEGATIVE [facility] Comment on above: Performed By: #### U AMIC ####[facility] [address] [place], [place] [address]Dr. Yilan Nath HYALINE CAST RARE Normal [facility] Comment on above: Performed By: #### U AMIC ####[facility] [address] [place], [place] [address]Dr. Yilan Nath Ketones Ql (U) Negative Normal NEGATIVE [facility] Comment on above: Performed By: #### U AMIC ####[facility] [address] [place] [address]Dr. Yilan Nath LEUKOCYTES Negative Normal NEGATIVE [facility] Comment on above: Performed By: #### U AMIC ####[facility] [address] [place] [address]Dr. Yilan Nath MUCOUS NONE SEEN Normal NONE SEEN [facility] Comment on above: Performed By: #### U AMIC ####[facility] [address] [place], [place] [address]Dr. Yilan Nath Nitrite Ql (U) Negative Normal NEGATIVE [facility] Comment on above: Performed By: #### U AMIC ####[facility] [address] [place], [place] [id number]. Kasia Nath pH (U) 5.5 [pH] Normal 5-9 [facility] Comment on above: Performed By: #### U AMIC ####[facility] [address] [place] [address]Dr. Kasia Nath RBC 0-2 Normal 0-2 [facility] Comment on above: Performed By: #### U AMIC ####[facility] [address] [place] [address]Dr. Kasia Nath SPEC GRAVITY 1.015 Normal 1.005-<=1.0 25 [facility] Comment on above: Performed By: #### U AMIC ####[facility] [address] [place], [place] [address]Dr. Kasia Nath UA PROTEIN TRACE Normal NEGATIVE/ TRACE [facility] Comment on above: Performed By: #### U AMIC ####[facility] [address] [place], [place] [address]Dr. Kasia Nath Urobilinogen Qn (U) 0.2 {Meka'U}/dL Normal 0.2 - 1. 0 [facility] Comment on above: Performed By: #### U AMIC ####[facility] [address] [place], [place] [address]Dr. Kasia Nath WBC 0-2 Abnormal NONE SEEN [facility] Comment on above: Performed By: #### U AMIC ####[facility] [address] [place], [place] [address]Dr. Kasia Nath BNPon 01-16-2023 Natriuretic peptide B (Bld) [Mass/Vol] 1675.0 pg/mL Normal <=1,800.0 [facility] Comment on above: Performed By: #### B FITNESS MANAGER, CMP ####[facility] [address] [place], [place] [address]Dr. Kasia Nath PROF 14(COMP METB)on 023 Albumin [Mass/Vol] 3.4 g/dL Normal 3.4-5.0 [facility] Comment on above: Performed By: #### B FITNESS MANAGER, CMP ####[facility] [address] [place] [id number]. Kasia Nath Albumin/Globulin [Mass ratio] 0.8 {ratio} Normal [facility] Comment on above: Performed By: #### B FITNESS MANAGER, CMP ####[facility] [address] [place] [id number]. Kasia Nath ALP [Catalytic activity/Vol] 99 U/L Normal 46-116 [facility] Comment on above: Performed By: #### B FITNESS MANAGER, CMP ####[facility] [address] [place] [id number]. Kasia Nath ALT [Catalytic activity/Vol] 18 U/L Normal 14-59 [facility] Comment on above: Performed By: #### B FITNESS MANAGER, CMP ####[facility] [address] [place] [id number]. Kasia Portillo Anion gap [Moles/Vol] 10.6 mmol/L Normal [facility] Comment on above: Performed By: #### B FITNESS MANAGER, CMP ####[facility] [address] [place] [id number]. Kasia Portillo AST [Catalytic activity/Vol] 15 U/L Normal 15-37 [facility] Comment on above: Performed By: #### B FITNESS MANAGER, CMP ####[facility] [address] [place] [id number]. Kasia Portillo Bilirubin [Mass/Vol] 0.5 mg/dL Normal 0.2-1.0 [facility] Comment on above: Performed By: #### B FITNESS MANAGER, CMP ####[facility] [address] [place] [id number]. Kasia Portillo Calcium [Mass/Vol] 9.1 mg/dL Normal 8.5-10.1 [facility] Comment on above: Performed By: #### B FITNESS MANAGER, CMP ####[facility] [address] [place] [address]Dr. Kasia Nath Chloride [Moles/Vol] 98 mmol/L Normal 98-107 [facility] Comment on above: Performed By: #### B FITNESS MANAGER, CMP ####[facility] [address] [place] [address]Dr. Kasia Nath CO2 [Moles/Vol] 30.4 mmol/L Normal 21.0-32.0 [facility] Comment on above: Performed By: #### B FITNESS MANAGER, CMP ####[facility] [address] [place], [place] [address]Dr. Kasia Nath Creatinine [Mass/Vol] 1.44 mg/dL Critically high 0.55-1.02 [facility] Comment on above: Performed By: #### B FITNESS MANAGER, CMP ####[facility] [address] [place], [place] [address]Dr. Kasia Portillo EGFR-AF LITHUANIAN 43 mL/min/1.73m2 Critically low >=60 [facility] Comment on above: Performed By: #### B FITNESS MANAGER, CMP ####[facility] [address] [place], [place] [address]Dr. Kasia Nath EGFR-NON AF LITHUANIAN 35 mL/min/1.73m2 Critically low >=60 [facility] Comment on above: Performed By: #### B FITNESS MANAGER, CMP ####[facility] [address] [place], [place] [address]Dr. Kasia Portillo Globulin (S) [Mass/Vol] 4.4 g/dL Normal [facility] Comment on above: Performed By: #### B FITNESS MANAGER, CMP ####[facility] [address] [place], [place] [address]Dr. Fartuncristy Portillo Glucose [Mass/Vol] 401 mg/dL Critically high 74-106 [facility] Comment on above: Performed By: #### B FITNESS MANAGER, CMP ####[facility] [address] [place], [place] [address]Dr. Fartuncristy Portillo Potassium [Moles/Vol] 5.0 mmol/L Normal 3.5-5.1 [facility] Comment on above: Performed By: #### B FITNESS MANAGER, CMP ####[facility] [address] [place], [place] [address]Dr. Kasia Nath Protein [Mass/Vol] 7.8 g/dL Normal 6.4-8.2 [facility] Comment on above: Performed By: #### B FITNESS MANAGER, CMP ####[facility] [address] [place] [address]Dr. Fartuncristy Nath Sodium [Moles/Vol] 134 mmol/L Critically low 136-145 [facility] Comment on above: Performed By: #### B FITNESS MANAGER, CMP ####[facility] [address] [place] [address]Dr. Kasia Nath Urea nitrogen [Mass/Vol] 46.0 mg/dL Critically high 7.0-18.0 [facility] Comment on above: Performed By: #### B FITNESS MANAGER, CMP ####[facility] [address] [place] [address]Dr. Kasia Nath Urea nitrogen/Creatinine [Mass ratio] 31.9 mg/mg Normal [facility] Comment on above: Performed By: #### B FITNESS MANAGER, CMP ####[facility] [address] [place], [place] [address]Dr. Kasia Nath BNPon 01-05-2023 Natriuretic peptide B (Bld) [Mass/Vol] 1389.0 pg/mL Normal <=1,800.0 [facility] Comment on above: Performed By: #### B FITNESS MANAGER, CMADM, CMP ####[facility] [address] [place] [address]Dr. Kasia Nath CARDIAC EMERY ADMITon 023 CK [Catalytic activity/Vol] 138 U/L Normal 26-192 [facility] Comment on above: Performed By: #### B FITNESS MANAGER, CMADM, CMP ####[facility] [address] [place], [place] [address]Dr. Fartuncristy Nath CK.MB [Mass/Vol] 2.22 ng/mL Normal <=3.60 [facility] Comment on above: Performed By: #### B FITNESS MANAGER, CMADM, CMP ####[facility] [address] [place], [place] [address]Dr. Kasia Portillo HSTROP 15.9 pg/mL Normal 4.0-51.3 [facility] Comment on above: Result Comment: CUT- OFF POINTS HAVE BEEN ESTABLISHED BASED ON THE FOURTH UNIVERSAL DEFINITIONS OF MYOCARDIAL INFARCTION. THE UPPER REFERENCE LIMIT (URL) OF TROPONIN, DEFINED THE 99TH PERCENTILE OF cTnI DISTRIBUTION IN A REFERENCE POPULATION, HAS BEEN CONFIRMED THE DECISION THRESHOLD FOR CT DIAGNOSIS. Performed By: #### B FITNESS MANAGER, CMADM, CMP ####[facility] [address] [place], [place] [address]DkDr. Kasia Nath GRETTA 178 ng/mL Critically high 9-82 [facility] Comment on above: Performed By: #### B FITNESS MANAGER, CMADM, CMP ####[facility] [address] [place] [id number]. Kasia Nath CBC AUTO DIFFon 01-05-2023 BASO # 0.1 103/ul Normal 0.0-0.1 [facility] Comment on above: Performed By: #### C BC #### [facility] [address] [address] [address] Kasia Nath Basophils/100 WBC (Bld) 0.7 % Normal 0.2-2.0 [facility] Comment on above: Performed By: #### C BC #### [facility] [address] [address] [address] Kasai Nath EO # 0.3 103/ul Normal 0.0-0.7 [facility] Comment on above: Performed By: #### C BC #### [facility] [address] [address] [address] Kasia Nath Eosinophils/100 WBC (Bld) 2.9 % Normal 0.9-7.0 [facility] Comment on above: Performed By: #### C BC #### [facility] [address] [address] [address] Kasia Nath Erythrocyte distribution width (RBC) [Ratio] 13.5 % Normal 11.0-15.0 [facility] Comment on above: Performed By: #### C BC #### [facility] [address] [address] [address] Kasia Nath Hematocrit (Bld) [Volume fraction] 39.8 % Normal 36.0-48.0 [facility] Comment on above: Performed By: #### C BC #### [facility] [address] [place] [address] Dr. Kasia Nath Hemoglobin (Bld) [Mass/Vol] 13.5 g/dL Normal 12.0-16.0 [facility] Comment on above: Performed By: #### C BC #### [facility] [address] [place] [address] Dr. Kasia Nath IG # 0.02 10e3/ul Normal 0.00-0.03 [facility] Comment on above: Performed By: #### C BC #### [facility] [address] [place] [address] Dr. Kasia Nath IG % 0.2 % Normal 0.0-0.5 [facility] Comment on above: Performed By: #### C BC #### [facility] [address] [place] [address] Dr. Kasia Nath LYMPH # 1.9 103/ul Normal 1.2-3.8 [facility] Comment on above: Performed By: #### C BC #### [facility] [address] [place] [address] Dr. Kasia Nath Lymphocytes/100 WBC (Bld) 22.0 % Normal 20.5-60.0 [facility] Comment on above: Performed By: #### C BC #### [facility] [address] [place] [address] Dr. Kasia Nath MANUAL DIFF REQ NO Normal [facility] Comment on above: Performed By: #### C BC #### [facility] [address] [place] [address] Dr. Kasia Nath MCH (RBC) [Entitic mass] 29.8 pg Normal 26.7-34.0 [facility] Comment on above: Performed By: #### C BC #### [facility] [address] [place] [address] Dr. Kasia Nath MCHC (RBC) [Mass/Vol] 33.9 g/dL Normal 29.9-35.2 [facility] Comment on above: Performed By: #### C BC #### [facility] [address] [place] [address] Dr. Kasia Nath MCV (RBC) [Entitic vol] 87.9 fL Normal 81.0-99.0 [facility] Comment on above: Performed By: #### C BC #### [facility] [address] [place] [address] Dr. Kasia Nath MONO # 0.8 103/ul Normal 0.3-0.8 [facility] Comment on above: Performed By: #### C BC #### [facility] [address] [place] [address] Dr. Kasia Nath Monocytes/100 WBC (Bld) 8.8 % Normal 1.7-12.0 [facility] Comment on above: Performed By: #### C BC #### [facility] [address] [place] [address] Dr. Kasia Nath NEUT # 5.6 103/ul Normal 1.4-6.5 [facility] Comment on above: Performed By: #### C BC #### [facility] [address] [place] [address] Dr. Kasia Nath Neutrophils/100 WBC (Bld) 65.4 % Normal 43.0-75.0 [facility] Comment on above: Performed By: #### C BC #### [facility] [address] [place] [address] Dr. Kasia Nath Platelet mean volume (Bld) [Entitic vol] 10.6 fL Normal 9.5-13.5 [facility] Comment on above: Performed By: #### C BC #### [facility] [address] [place] [address] Dr. Kasia Nath PLT 222 103/ul Normal 150-450 [facility] Comment on above: Performed By: #### C BC #### [facility] [address] [place] [address] Dr. Kasia Nath RBC 4.53 106/ul Normal 4.20-5.40 [facility] Comment on above: Performed By: #### C BC #### [facility] [address] [place] [address] Dr. Kasia Nath WBC 8.6 103/ul Normal 4.0-11.0 [facility] Comment on above: Performed By: #### C BC #### [facility] [address] [address] [address] Kasia Nath PROF 14(COMP METB)on 023 Albumin [Mass/Vol] 3.3 g/dL Critically low 3.4-5.0 [facility] Comment on above: Performed By: #### B FITNESS MANAGER, CMADM, CMP #### [facility] [address] [place] [address] Dr. Kasia Nath Albumin/Globulin [Mass ratio] 0.7 {ratio} Normal [facility] Comment on above: Performed By: #### B FITNESS MANAGER, CMADM, CMP #### [facility] [address] [place] [address] Dr. Kasia Nath ALP [Catalytic activity/Vol] 106 U/L Normal 46-116 [facility] Comment on above: Performed By: #### B FITNESS MANAGER, CMADM, CMP #### [facility] [address] [place] [address] Dr. Kasia Nath ALT [Catalytic activity/Vol] 22 U/L Normal 14-59 [facility] Comment on above: Performed By: #### B FITNESS MANAGER, CMADM, CMP #### [facility] [address] [address] [address] Kasia Nath Anion gap [Moles/Vol] 12.0 mmol/L Normal [facility] Comment on above: Performed By: #### B FITNESS MANAGER, CMADM, CMP #### [facility] [address] [place] [address] Dr. Kasia Nath AST [Catalytic activity/Vol] 23 U/L Normal 15-37 [facility] Comment on above: Performed By: #### B FITNESS MANAGER, CMADM, CMP #### [facility] [address] [place] [address] Dr. Kasia Nath Bilirubin [Mass/Vol] 0.7 mg/dL Normal 0.2-1.0 [facility] Comment on above: Performed By: #### B FITNESS MANAGER, CMADM, CMP #### [facility] [address] [address] [address] Kasia Nath Calcium [Mass/Vol] 8.8 mg/dL Normal 8.5-10.1 [facility] Comment on above: Performed By: #### B FITNESS MANAGER, CMADM, CMP #### [facility] [address] [address] [address] Kasia Nath Chloride [Moles/Vol] 98 mmol/L Normal 98-107 [facility] Comment on above: Performed By: #### B FITNESS MANAGER, CMADM, CMP #### [facility] [address] [address] [address] Kasia Nath CO2 [Moles/Vol] 30.2 mmol/L Normal 21.0-32.0 [facility] Comment on above: Performed By: #### B FITNESS MANAGER, CMADM, CMP #### [facility] [address] [place] [address] Dr. Kasia Nath Creatinine [Mass/Vol] 1.19 mg/dL Critically high 0.55-1.02 [facility] Comment on above: Performed By: #### B FITNESS MANAGER, CMADM, CMP #### [facility] [address] [address] [address] Kasia Nath EGFR-AF LITHUANIAN 53 mL/min/1.73m2 Critically low >=60 [facility] Comment on above: Performed By: #### B FITNESS MANAGER, CMADM, CMP #### [facility] [address] [place] [address] Dr. Kasia Nath EGFR-NON AF LITHUANIAN 44 mL/min/1.73m2 Critically low >=60 [facility] Comment on above: Performed By: #### B FITNESS MANAGER, CMADM, CMP #### [facility] [address] [address] [address] Kasia Nath Globulin (S) [Mass/Vol] 4.7 g/dL Normal [facility] Comment on above: Performed By: #### B FITNESS MANAGER, CMADM, CMP #### [facility] [address] [address] [address] Kasia Nath Glucose [Mass/Vol] 124 mg/dL Critically high 74-106 [facility] Comment on above: Performed By: #### B FITNESS MANAGER, CMADM, CMP #### [facility] [address] [place] [address] Dr. Kasia Nath Potassium [Moles/Vol] 3.2 mmol/L Critically low 3.5-5.1 [facility] Comment on above: Performed By: #### B FITNESS MANAGER, CMADM, CMP #### [facility] [address] [place] [address] Dr. Kasia Nath Protein [Mass/Vol] 8.0 g/dL Normal 6.4-8.2 [facility] Comment on above: Performed By: #### B FITNESS MANAGER, CMADM, CMP #### [facility] [address] [place] [address] Dr. Kasia Nath Sodium [Moles/Vol] 137 mmol/L Normal 136-145 [facility] Comment on above: Performed By: #### B FITNESS MANAGER, CMADM, CMP #### [facility] [address] [place] [address] Dr. Kasia Nath Urea nitrogen [Mass/Vol] 29.0 mg/dL Critically high 7.0-18.0 [facility] Comment on above: Performed By: #### B FITNESS MANAGER, CMADM, CMP #### [facility] [address] [place] [address] Dr. Kasia Nath Urea nitrogen/Creatinine [Mass ratio] 24.4 mg/mg Normal [facility] Comment on above: Performed By: #### B FITNESS MANAGER, CMADM, CMP #### [facility] [address] [place] [address] Dr. Kasia Nath TROPONIN, HIGH SENSITIVITYon 01-05-2023 HSTROP 18.4 pg/mL Normal 4.0-51.3 [facility] Comment on above: Result Comment: CUT- OFF POINTS HAVE BEEN ESTABLISHED BASED ON THE FOURTH UNIVERSAL DEFINITIONS OF MYOCARDIAL INFARCTION. THE UPPER REFERENCE LIMIT (URL) OF TROPONIN, DEFINED THE 99TH PERCENTILE OF cTnI DISTRIBUTION IN A REFERENCE POPULATION, HAS BEEN CONFIRMED THE DECISION THRESHOLD FOR CT DIAGNOSIS. Performed By: #### H STROPN ####[facility] [address] [place] [id number]. Kasia Nath XR CHEST 1 Von 01-05-2023 [...] BIN ROJAS Date: 2023-01-05 04:39 Normal [facility] BNPon 01-02-2023 Natriuretic peptide B (Bld) [Mass/Vol] 2583.0 pg/mL Critically high <=1,800.0 [facility] Comment on above: Performed By: #### B FITNESS MANAGER, CMP ####[facility] [address] [place] [address]Dr. Kasia Nath CBC AUTO DIFFon 01-02-2023 BASO # 0.1 103/ul Normal 0.0-0.1 [facility] Comment on above: Performed By: #### P OCGLUC #### [facility] [address] [place] [address] Dr. Kasia Nath Basophils/100 WBC (Bld) 0.9 % Normal 0.2-2.0 [facility] Comment on above: Performed By: #### P OCGLUC #### [facility] [address] [place] [address] Dr. Kasia Nath EO # 0.2 103/ul Normal 0.0-0.7 [facility] Comment on above: Performed By: #### P OCGLUC #### [facility] [address] [place] [address] Dr. Kasia Nath Eosinophils/100 WBC (Bld) 2.3 % Normal 0.9-7.0 [facility] Comment on above: Performed By: #### P OCGLUC #### [facility] [address] [place] [address] Dr. Kasia Nath Erythrocyte distribution width (RBC) [Ratio] 13.8 % Normal 11.0-15.0 [facility] Comment on above: Performed By: #### P OCGLUC #### [facility] [address] [place] [address] Dr. Kasia Nath Hematocrit (Bld) [Volume fraction] 35.5 % Critically low 36.0-48.0 [facility] Comment on above: Performed By: #### P OCGLUC #### [facility] [address] [place] [address] Dr. Kasia Nath Hemoglobin (Bld) [Mass/Vol] 11.6 g/dL Critically low 12.0-16.0 [facility] Comment on above: Performed By: #### P OCGLUC #### [facility] [address] [place] [address] Dr. Kasia Nath IG # 0.02 10e3/ul Normal 0.00-0.03 [facility] Comment on above: Performed By: #### P OCGLUC #### [facility] [address] [place] [address] Dr. Kasia Nath IG % 0.3 % Normal 0.0-0.5 [facility] Comment on above: Performed By: #### P OCGLUC #### [facility] [address] [place] [address] Dr. Kasia Nath LYMPH # 2.0 103/ul Normal 1.2-3.8 [facility] Comment on above: Performed By: #### P OCGLUC #### [facility] [address] [place] [address] Dr. Kasia Nath Lymphocytes/100 WBC (Bld) 24.8 % Normal 20.5-60.0 [facility] Comment on above: Performed By: #### P OCGLUC #### [facility] [address] [place] [address] Dr. Kasia Nath MANUAL DIFF REQ NO Normal [facility] Comment on above: Performed By: #### P OCGLUC #### [facility] [address] [place] [address] [address] Kasia Nath MCH (RBC) [Entitic mass] 28.7 pg Normal 26.7-34.0 [facility] Comment on above: Performed By: #### P OCGLUC #### [facility] [address] [place] [address] [address] Kasia Nath MCHC (RBC) [Mass/Vol] 32.7 g/dL Normal 29.9-35.2 [facility] Comment on above: Performed By: #### P OCGLUC #### [facility] [address] [place] [address] Dr. Kasia Nath MCV (RBC) [Entitic vol] 87.9 fL Normal 81.0-99.0 [facility] Comment on above: Performed By: #### P OCGLUC #### [facility] [address] [place] [address] Dr. Kasia Nath MONO # 0.8 103/ul Normal 0.3-0.8 [facility] Comment on above: Performed By: #### P OCGLUC #### [facility] [address] [place] [address] Dr. Kasia Nath Monocytes/100 WBC (Bld) 9.6 % Normal 1.7-12.0 [facility] Comment on above: Performed By: #### P OCGLUC #### [facility] [address] [place] [address] Dr. Kasia Nath NEUT # 5.0 103/ul Normal 1.4-6.5 [facility] Comment on above: Performed By: #### P OCGLUC #### [facility] [address] [place] [address] Dr. Kasia Nath Neutrophils/100 WBC (Bld) 62.1 % Normal 43.0-75.0 [facility] Comment on above: Performed By: #### P OCGLUC #### [facility] [address] [place] [address] Dr. Kasia Nath Platelet mean volume (Bld) [Entitic vol] 10.7 fL Normal 9.5-13.5 [facility] Comment on above: Performed By: #### P OCGLUC #### [facility] [address] [place] [address] [address] Kasia Nath PLT 204 103/ul Normal 150-450 [facility] Comment on above: Performed By: #### P OCGLUC #### [facility] [address] [place] [address] [address] Kasia Nath RBC 4.04 106/ul Critically low 4.20-5.40 [facility] Comment on above: Performed By: #### P OCGLUC #### [facility] [address] [place] [address] [address] Kasia Nath WBC 8.0 103/ul Normal 4.0-11.0 [facility] Comment on above: Performed By: #### P OCGLUC #### [facility] [address] [place] [address] [address] Kasia Nath GLYCOHEMOGLOBIN A1Con 2022 ADA RECOMMENDATION SEE BELOW Normal [facility] Comment on above: Result Comment: ADA RECOMMENDED LIMIT 4.0 - 6.0 ADA THERAPEUTIC TARGET < 7.0 ACTION SUGGESTED > 7.0 Performed By: #### A 1C ####[facility] [address] [place] [address]Dr. Kasia Nath Glucose [Mass/Vol] 298 mg/dL Normal [facility] Comment on above: Performed By: #### A 1C ####[facility] [address] [place] [address]Dr. Kasia Nath HbA1c (Bld) [Mass fraction] 12.0 % Critically high 4.5-6.2 [facility] Comment on above: Performed By: #### A 1C ####[facility] [address] [place] [address]Dr. Kasia Nath POINT OF CARE GLUCOSEon 12-14 Glucose [Mass/Vol] 227 mg/dL Critically high 74-106 [facility] Comment on above: Performed By: #### C BC #### [facility] [address] [place] [address] [address] Kasia Nath Glucose [Mass/Vol] 214 mg/dL Critically high 74-106 [facility] Comment on above: Performed By: #### C BC #### [facility] [address] [place] [address] [address] Kasia Nath PROF 14(COMP METB)on 023 Albumin [Mass/Vol] 2.6 g/dL Critically low 3.4-5.0 [facility] Comment on above: Performed By: #### B FITNESS MANAGER, CMP ####[facility] [address] [place] [address]Dr. Kasia Nath Albumin/Globulin [Mass ratio] 0.6 {ratio} Normal [facility] Comment on above: Performed By: #### B FITNESS MANAGER, CMP ####[facility] [address] [place] [address]Dr. Kasia Nath ALP [Catalytic activity/Vol] 94 U/L Normal 46-116 [facility] Comment on above: Performed By: #### B FITNESS MANAGER, CMP ####[facility] [address] [place] [address]Dr. Kasia Nath ALT [Catalytic activity/Vol] 16 U/L Normal 14-59 [facility] Comment on above: Performed By: #### B FITNESS MANAGER, CMP ####[facility] [address] [place] [address]Dr. Kasia Nath Anion gap [Moles/Vol] 10.6 mmol/L Normal [facility] Comment on above: Performed By: #### B FITNESS MANAGER, CMP ####[facility] [address] [place] [address]Dr. Kasia Nath AST [Catalytic activity/Vol] 15 U/L Normal 15-37 [facility] Comment on above: Performed By: #### B FITNESS MANAGER, CMP ####[facility] [address] [place] [address]Dr. Kasia Nath Bilirubin [Mass/Vol] 0.8 mg/dL Normal 0.2-1.0 [facility] Comment on above: Performed By: #### B FITNESS MANAGER, CMP ####[facility] [address] [place] [id number]. Kasia Nath Calcium [Mass/Vol] 8.5 mg/dL Normal 8.5-10.1 [facility] Comment on above: Performed By: #### B FITNESS MANAGER, CMP ####[facility] [address] [place] [id number]. Kasia Nath Chloride [Moles/Vol] 102 mmol/L Normal 98-107 [facility] Comment on above: Performed By: #### B FITNESS MANAGER, CMP ####[facility] [address] [place] [id number]. Kasia Nath CO2 [Moles/Vol] 30.2 mmol/L Normal 21.0-32.0 [facility] Comment on above: Performed By: #### B FITNESS MANAGER, CMP ####[facility] [address] [place], [place] [address]Dr. Kasia Nath Creatinine [Mass/Vol] 0.94 mg/dL Normal 0.55-1.02 [facility] Comment on above: Performed By: #### B FITNESS MANAGER, CMP ####[facility] [address] [place], [place] [address]Dr. Kasia Nath EGFR-AF LITHUANIAN >60 Normal >=60 [facility] Comment on above: Performed By: #### B FITNESS MANAGER, CMP ####[facility] [address] [place], [place] [address]Dr. Kasia Portillo EGFR-NON AF LITHUANIAN 58 mL/min/1.73m2 Critically low >=60 [facility] Comment on above: Performed By: #### B FITNESS MANAGER, CMP ####[facility] [address] [place] [id number]. Kasia Portillo Globulin (S) [Mass/Vol] 4.0 g/dL Normal [facility] Comment on above: Performed By: #### B FITNESS MANAGER, CMP ####[facility] [address] [place] [id number]. Fartuncristy Portillo Glucose [Mass/Vol] 150 mg/dL Critically high 74-106 [facility] Comment on above: Performed By: #### B FITNESS MANAGER, CMP ####[facility] [address] [place] [address]Dr. Kasia Nath Potassium [Moles/Vol] 3.8 mmol/L Normal 3.5-5.1 [facility] Comment on above: Performed By: #### B FITNESS MANAGER, CMP ####[facility] [address] [place] [address]Dr. Kasia Nath Protein [Mass/Vol] 6.6 g/dL Normal 6.4-8.2 [facility] Comment on above: Performed By: #### B FITNESS MANAGER, CMP ####[facility] [address] [place] [address]Dr. Kasia Nath Sodium [Moles/Vol] 139 mmol/L Normal 136-145 [facility] Comment on above: Performed By: #### B FITNESS MANAGER, CMP ####[facility] [address] [place] [address]Dr. Kasia Nath Urea nitrogen [Mass/Vol] 24.0 mg/dL Critically high 7.0-18.0 [facility] Comment on above: Performed By: #### B FITNESS MANAGER, CMP ####[facility] [address] [place], [place] [address]Dr. Kasia Nath Urea nitrogen/Creatinine [Mass ratio] 25.5 mg/mg Normal [facility] Comment on above: Performed By: #### B FITNESS MANAGER, CMP ####[facility] [address] [place] [address]Dr. Kasia Nath BNPon 01-01-2023 Natriuretic peptide B (Bld) [Mass/Vol] 1419.0 pg/mL Normal <=1,800.0 [facility] Comment on above: Performed By: #### B FITNESS MANAGER #### [facility] [address] [place] [address] [address] Kasia Nath CARDIAC EMERY 3-6on 3 CK [Catalytic activity/Vol] 80 U/L Normal 26-192 [facility] Comment on above: Performed By: #### P OCGLUC #### [facility] [address] [place] [address] Dr. Kasia Nath CK.MB [Mass/Vol] 1.85 ng/mL Normal <=3.60 [facility] Comment on above: Performed By: #### P OCGLUC #### [facility] [address] [place] [address] Dr. Kasia Nath HSTROP 13.2 pg/mL Normal 4.0-51.3 [facility] Comment on above: Result Comment: CUT- OFF POINTS HAVE BEEN ESTABLISHED BASED ON THE FOURTH UNIVERSAL DEFINITIONS OF MYOCARDIAL INFARCTION. THE UPPER REFERENCE LIMIT (URL) OF TROPONIN, DEFINED THE 99TH PERCENTILE OF cTnI DISTRIBUTION IN A REFERENCE POPULATION, HAS BEEN CONFIRMED THE DECISION THRESHOLD FOR CT DIAGNOSIS. Performed By: #### P OCGLUC #### [facility] [address] [place] [address] Dr. Kasia Nath CK [Catalytic activity/Vol] 73 U/L Normal 26-192 [facility] Comment on above: Performed By: #### P OCGLUC #### [facility] [address] [place] [address] Dr. Kasia Nath CK.MB [Mass/Vol] 1.71 ng/mL Normal <=3.60 [facility] Comment on above: Performed By: #### P OCGLUC #### [facility] [address] [place] [address] Dr. Kasia Nath HSTROP 13.6 pg/mL Normal 4.0-51.3 [facility] Comment on above: Result Comment: CUT- OFF POINTS HAVE BEEN ESTABLISHED BASED ON THE FOURTH UNIVERSAL DEFINITIONS OF MYOCARDIAL INFARCTION. THE UPPER REFERENCE LIMIT (URL) OF TROPONIN, DEFINED THE 99TH PERCENTILE OF cTnI DISTRIBUTION IN A REFERENCE POPULATION, HAS BEEN CONFIRMED THE DECISION THRESHOLD FOR CT DIAGNOSIS. Performed By: #### P OCGLUC #### [facility] [address] [place] [address] Dr. Kasia Nath CARDIAC EMERY ADMITon 023 CK [Catalytic activity/Vol] 71 U/L Normal 26-192 [facility] Comment on above: Performed By: #### C BC #### [facility] [address] [place] [address] Dr. Kasia Nath CK.MB [Mass/Vol] 1.69 ng/mL Normal <=3.60 [facility] Comment on above: Performed By: #### C BC #### [facility] [address] [place] [address] Dr. Kasia Nath HSTROP 13.0 pg/mL Normal 4.0-51.3 [facility] Comment on above: Result Comment: CUT- OFF POINTS HAVE BEEN ESTABLISHED BASED ON THE FOURTH UNIVERSAL DEFINITIONS OF MYOCARDIAL INFARCTION. THE UPPER REFERENCE LIMIT (URL) OF TROPONIN, DEFINED THE 99TH PERCENTILE OF cTnI DISTRIBUTION IN A REFERENCE POPULATION, HAS BEEN CONFIRMED THE DECISION THRESHOLD FOR CT DIAGNOSIS. Performed By: #### C BC #### [facility] [address] [place] [address] Dr. Kasia Nath GRETTA 75 ng/mL Normal 9-82 [facility] Comment on above: Performed By: #### C BC #### [facility] [address] [place] [address] Dr. Kasia Nath CBC AUTO DIFFon 01-01-2023 BASO # 0.1 103/ul Normal 0.0-0.1 [facility] Comment on above: Performed By: #### C BC #### [facility] [address] [place] [address] Dr. Kasia Nath Basophils/100 WBC (Bld) 1.1 % Normal 0.2-2.0 [facility] Comment on above: Performed By: #### C BC #### [facility] [address] [place] [address] Dr. Kasia Nath EO # 0.2 103/ul Normal 0.0-0.7 [facility] Comment on above: Performed By: #### C BC #### [facility] [address] [place] [address] Dr. Kasia Nath Eosinophils/100 WBC (Bld) 2.9 % Normal 0.9-7.0 [facility] Comment on above: Performed By: #### C BC #### [facility] [address] [place] [address] Dr. Kasia Nath Erythrocyte distribution width (RBC) [Ratio] 13.8 % Normal 11.0-15.0 [facility] Comment on above: Performed By: #### C BC #### [facility] [address] [place] [address] Dr. Kasia Nath Hematocrit (Bld) [Volume fraction] 36.2 % Normal 36.0-48.0 [facility] Comment on above: Performed By: #### C BC #### [facility] [address] [place] [address] Dr. Kasia Nath Hemoglobin (Bld) [Mass/Vol] 12.1 g/dL Normal 12.0-16.0 [facility] Comment on above: Performed By: #### C BC #### [facility] [address] [place] [address] Dr. Kasia Nath IG # 0.02 10e3/ul Normal 0.00-0.03 [facility] Comment on above: Performed By: #### C BC #### [facility] [address] [place] [address] Dr. Kasia Nath IG % 0.3 % Normal 0.0-0.5 [facility] Comment on above: Performed By: #### C BC #### [facility] [address] [place] [address] Dr. Kasia Nath LYMPH # 1.5 103/ul Normal 1.2-3.8 [facility] Comment on above: Performed By: #### C BC #### [facility] [address] [place] [address] Dr. Kasia Nath Lymphocytes/100 WBC (Bld) 19.9 % Critically low 20.5-60.0 [facility] Comment on above: Performed By: #### C BC #### [facility] [address] [place] [address] Dr. Kasia Nath MANUAL DIFF REQ NO Normal [facility] Comment on above: Performed By: #### C BC #### [facility] [address] [place] [address] Dr. Kasia Nath MCH (RBC) [Entitic mass] 29.7 pg Normal 26.7-34.0 [facility] Comment on above: Performed By: #### C BC #### [facility] [address] [place] [address] [address] Kasia Nath MCHC (RBC) [Mass/Vol] 33.4 g/dL Normal 29.9-35.2 [facility] Comment on above: Performed By: #### C BC #### [facility] [address] [place] [address] Dr. Kasia Nath MCV (RBC) [Entitic vol] 88.9 fL Normal 81.0-99.0 [facility] Comment on above: Performed By: #### C BC #### [facility] [address] [place] [address] Dr. Kasia Nath MONO # 0.6 103/ul Normal 0.3-0.8 [facility] Comment on above: Performed By: #### C BC #### [facility] [address] [place] [address] Dr. Kasia Nath Monocytes/100 WBC (Bld) 8.0 % Normal 1.7-12.0 [facility] Comment on above: Performed By: #### C BC #### [facility] [address] [place] [address] Dr. Kasia Ntah NEUT # 5.1 103/ul Normal 1.4-6.5 [facility] Comment on above: Performed By: #### C BC #### [facility] [address] [place] [address] Dr. Kasia Nath Neutrophils/100 WBC (Bld) 67.8 % Normal 43.0-75.0 [facility] Comment on above: Performed By: #### C BC #### [facility] [address] [place] [address] Dr. Kasia Nath Platelet mean volume (Bld) [Entitic vol] 10.4 fL Normal 9.5-13.5 [facility] Comment on above: Performed By: #### C BC #### [facility] [address] [place] [address] Dr. Kasia Nath PLT 200 103/ul Normal 150-450 [facility] Comment on above: Performed By: #### C BC #### [facility] [address] [place], [place] [address] Dr. Kasia Nath RBC 4.07 106/ul Critically low 4.20-5.40 [facility] Comment on above: Performed By: #### C BC #### [facility] [address] [place], [place] [address] Dr. Kasia Nath WBC 7.5 103/ul Normal 4.0-11.0 [facility] Comment on above: Performed By: #### C BC #### [facility] [address] [place], [place] [address] CHEST WO CONon [...] two extremes (Agatston score 101-1000). https://pubs.rsna.org/do i/abs/[email or web address] [address]1981 Electronically authenticated by: RENETTA MICHAELS Date: 2023-01-01 14:55 Normal [facility] Covid-19 PCR (CVDTB)on 12-14 SARS-CoV-2 (COVID-19) RNA FERN+probe Ql (Unsp spec) Not detected Normal NOT DETECTED [facility] Comment on above: Result Comment: [...] for this test is supported by the [employer] of [employer] and Human Service's declaration that [...] be used). Performed By: #### C [facility] #### [facility] [address] [place] [address] Dr. Kasia Nath ECHO LIMITED STUDYon 023 ECHO LIMITED STUDY Patient: SAIMA CALL Exam Date: 01/01/2023 : 1945 Gender:F Ordering : MARTINE GUERRERO . Admission #: [id number] Family : Order #: [id number] CLICK HERE TO VIEW EXAM ECHOCARDIOGRAM REPORT [...] Kaplan M.D. on 01/01/2023 at 13:19 Normal [facility] GLYCOHEMOGLOBIN A1Con 2022 ADA RECOMMENDATION SEE BELOW Normal [facility] Comment on above: Result Comment: ADA RECOMMENDED LIMIT 4.0 - 6.0 ADA THERAPEUTIC TARGET < 7.0 ACTION SUGGESTED > 7.0 Performed By: #### P OCGLUC #### [facility] [address] [place] [address] [address] Kasia Nath Glucose [Mass/Vol] 318 mg/dL Normal [facility] Comment on above: Performed By: #### P OCGLUC #### [facility] [address] [place] [address] [address] Kasia Nath HbA1c (Bld) [Mass fraction] 12.7 % Critically high 4.5-6.2 [facility] Comment on above: Performed By: #### P OCGLUC #### [facility] [address] [place] [address] [address] Kasia Nath POINT OF CARE GLUCOSEon 12-14 Glucose [Mass/Vol] 162 mg/dL Critically high -106 [facility] Comment on above: Performed By: #### P OCGLUC ####[facility] [address] [place], [place] [id number]. Kasia Nath Glucose [Mass/Vol] 213 mg/dL Critically high 74-106 [facility] Comment on above: Performed By: #### P OCGLUC ####[facility] [address] [place] [id number]. Kasia Nath Glucose [Mass/Vol] 248 mg/dL Critically high -106 [facility] Comment on above: Performed By: #### P OCGLUC #### [facility] [address] [place] [address] [address] Kasia Nath PROF CHEM 8 (BAS METB)on Anion gap [Moles/Vol] 11.8 mmol/L Normal [facility] Comment on above: Performed By: #### C BC #### [facility] [address] [place] [address] [address] Kasia Nath Calcium [Mass/Vol] 8.4 mg/dL Critically low 8.5-10.1 [facility] Comment on above: Performed By: #### C BC #### [facility] [address] [place] [address] Dr. Kasia Nath Chloride [Moles/Vol] 102 mmol/L Normal 98-107 [facility] Comment on above: Performed By: #### C BC #### [facility] [address] [place] [address] [address] Kasia Nath CO2 [Moles/Vol] 28.4 mmol/L Normal 21.0-32.0 [facility] Comment on above: Performed By: #### C BC #### [facility] [address] [address] [address] Kasia Nath Creatinine [Mass/Vol] 1.09 mg/dL Critically high 0.55-1.02 [facility] Comment on above: Performed By: #### C BC #### [facility] [address] [address] [address] Kasia Nath EGFR-AF LITHUANIAN 59 mL/min/1.73m2 Critically low >=60 [facility] Comment on above: Performed By: #### C BC #### [facility] [address] [address] [address] Kasia Nath EGFR-NON AF LITHUANIAN 49 mL/min/1.73m2 Critically low >=60 [facility] Comment on above: Performed By: #### C BC #### [facility] [address] [address] [address] Kasia Nath Glucose [Mass/Vol] 247 mg/dL Critically high 74-106 [facility] Comment on above: Performed By: #### C BC #### [facility] [address] [address] [address] Kasia Nath Potassium [Moles/Vol] 4.2 mmol/L Normal 3.5-5.1 [facility] Comment on above: Performed By: #### C BC #### [facility] [address] [address] [address] Kasia Nath Sodium [Moles/Vol] 138 mmol/L Normal 136-145 [facility] Comment on above: Performed By: #### C BC #### [facility] [address] [address] [address] Kasia Nath Urea nitrogen [Mass/Vol] 28.0 mg/dL Critically high 7.0-18.0 [facility] Comment on above: Performed By: #### C BC #### [facility] [address] [address] [address] Kasia Nath Urea nitrogen/Creatinine [Mass ratio] 25.7 mg/mg Normal [facility] Comment on above: Performed By: #### C BC #### [facility] [address] [address] [address] Kasia Nath XR CHEST 1 Von [...] by: Miranda ALVAREZ Date: 2023-01-01 05:38 Normal [facility] ECHOCARDIO M/2D COMPLETEon 1 11-15-2021 ECHOCARDIO M/2D COMPLETE Patient: JOE CALL Exam Date: 09/15/2022 : 1945 Gender:F Ordering : YAMEL PANDYA [facility] Admission #: [id number] Family : DR SHANTEL STEVEN M.D. Order #: [id number] CLICK HERE TO VIEW EXAM ECHOCARDIOGRAM REPORT [...] M.D. on 09/15/2022 at 18:17 Normal [facility] GI PANEL (PCR)on 05-02-2022 Adenovirus F 40/41 Not detected Normal NOT DETECTED [facility] Comment on above: Performed By: #### P OCGLUC #### [facility] [address] [place] [address] Dr. Kasia Nath Astrovirus Not detected Normal NOT DETECTED [facility] Comment on above: Performed By: #### P OCGLUC #### [facility] [address] [place] [address] Dr. Kasia Nath C. Diff toxin A/B Not detected Normal NOT DETECTED [facility] Comment on above: Performed By: #### P OCGLUC #### [facility] [address] [place] [address] Dr. Kasia Nath Campylobacter Not detected Normal NOT DETECTED [facility] Comment on above: Performed By: #### P OCGLUC #### [facility] [address] [place] [address] Dr. Kasia Nath Cryptosporidium Not detected Normal NOT DETECTED [facility] Comment on above: Performed By: #### P OCGLUC #### [facility] [address] [place] [address] Dr. Kasia Nath Cyclos. Cayetanensis Not detected Normal NOT DETECTED [facility] Comment on above: Performed By: #### P OCGLUC #### [facility] [address] [place] [address] Dr. Kasia Nath E. Coli O157 Not Applicable Normal Not Applicable [facility] Comment on above: Performed By: #### P OCGLUC #### [facility] [address] [place] [address] Dr. Kasia Nath E. histolytica Not detected Normal NOT DETECTED [facility] Comment on above: Performed By: #### P OCGLUC #### [facility] [address] [place] [address] Dr. Kasia Nath EAEC Not detected Normal NOT DETECTED [facility] Comment on above: Performed By: #### P OCGLUC #### [facility] [address] [place] [address] Dr. Kasia Nath EIEC Not detected Normal NOT DETECTED [facility] Comment on above: Performed By: #### P OCGLUC #### [facility] [address] [address] [address] Kasia Nath EPEC Detected Abnormal NOT DETECTED [facility] Comment on above: Performed By: #### P OCGLUC #### [facility] [address] [address] [address] Kasia Nath ETEC Not detected Normal NOT DETECTED [facility] Comment on above: Performed By: #### P OCGLUC #### [facility] [address] [address] [address] Kasia Nath G. Lamblia Not detected Normal NOT DETECTED [facility] Comment on above: Performed By: #### P OCGLUC #### [facility] [address] [place] [address] Dr. Kasia KHAN CONTROLS PASSED Normal [facility] Comment on above: Performed By: #### P OCGLUC #### [facility] [address] [address] [address] Kasia [facility] HEAD[facility] GI PANEL BACTERIA Normal [facility] Comment on above: Performed By: #### P OCGLUC #### [facility] [address] [place] [address] Dr. Kasia GE ECOLI GI PANEL DIARRHEAGEN IC E.COLI / SHIGELLA Normal [facility] Comment on above: Performed By: #### P OCGLUC #### [facility] [address] [place] [address] Dr. Kasia GE INFO SEE BELOW Normal [facility] Comment on above: Result Comment: EAEC - Enteroaggregative E. Coli EPEC- Enteropathogenic E. Coli ETEC- Enterotoxigenic E. Coli lt/st STEC- Shigella-like toxin-producing E. Coli stx1/stx2 EIEC- Shigella/Enteroinvasive E. Coli Performed By: #### P OCGLUC #### [facility] [address] [place] [address] Dr. Kasia GE PARASITES GI PANEL PARASITES Normal [facility] Comment on above: Performed By: #### P OCGLUC #### [facility] [address] [place] [address] Dr. Kasia Nath [facility] VIRUS GI PANEL VIRUSES Normal [facility] Comment on above: Performed By: #### P OCGLUC #### [facility] [address] [place] [address] Dr. Kasia Nath Norovirus GI/GII Not detected Normal NOT DETECTED [facility] Comment on above: Performed By: #### P OCGLUC #### [facility] [address] [place] [address] Dr. Kasia Nath P. Shigelloides Not detected Normal NOT DETECTED [facility] Comment on above: Performed By: #### P OCGLUC #### [facility] [address] [place] [address] Dr. Kasia Nath Rotavirus A Not detected Normal NOT DETECTED [facility] Comment on above: Performed By: #### P OCGLUC #### [facility] [address] [place] [address] Dr. Kasia Nath Salmonella Not detected Normal NOT DETECTED [facility] Comment on above: Performed By: #### P OCGLUC #### [facility] [address] [place] [address] Dr. Kasia Nath Sapovirus Not detected Normal NOT DETECTED [facility] Comment on above: Performed By: #### P OCGLUC #### [facility] [address] [place] [address] Dr. Kasia Nath STEC Not detected Normal NOT DETECTED [facility] Comment on above: Performed By: #### P OCGLUC #### [facility] [address] [place] [address] Dr. Kasia Nath Vibrio Not detected Normal NOT DETECTED [facility] Comment on above: Performed By: #### P OCGLUC #### [facility] [address] [place] [address] Dr. Kasia Nath Vibrio Cholera Not detected Normal NOT DETECTED [facility] Comment on above: Performed By: #### P OCGLUC #### [facility] [address] [place] [address] Dr. Kasia Nath Y. Enterocolitica Not detected Normal NOT DETECTED [facility] Comment on above: Performed By: #### P OCGLUC #### [facility] [address] [address] [address] Kasia Nath OCC BLD IMMUNO SCREENon 04-13 OCCULT BLOOD Negative Normal NEGATIVE [facility] Comment on above: Performed By: #### C BC #### [facility] [address] [address] [address] Kasia Nath XR knee BI 4Von 08-25-2021 XR knee BI 4V [facility] [employer] Other XR knee BI 4V [facility] 1calendar Other XR knee BI 4V [address] [place] [address] 1calendar Other XR knee BI 4V [address] [employer]calendar Other XR knee BI 4V XRay Report [employer] Other XR knee BI 4V Signed [employer] Other XR knee BI 4V Patient: Joe Call MR#: [id number] [employer] Other XR knee BI 4V 0 [employer] Other XR knee BI 4V : 1945 Acct:[id number] [employer] Other XR knee BI 4V Age/Sex: 76 / F ADM Date: 08/25/21 [employer] Other XR knee BI 4V Loc: [facility] Room: Type : REG I [employer] Other XR knee BI 4V Attending Dr: Akbar Cui II, MD [employer] Other XR knee BI 4V Ordering Provider: Akbar Cui MD [employer] Other XR knee BI 4V Date of Service: 08/25/21 [employer] Other XR knee BI 4V XR/XR knee BI 4V: Pain in right knee;Pain in left knee [employer] Other XR knee BI 4V Copies to: Akbar Cui MD [employer] Other XR knee BI 4V XR knee BI 4V 2020 1:32 PM [employer] Other XR knee BI 4V SIGNS AND SYMPTOMS: Bilateral knee pain with decreased range of motion, weakness [employer] Other XR knee BI 4V PROTOCOL: Frontal, lateral, and sunrise views of the bilateral knees [employer] Other XR knee BI 4V COMPARISON: None [employer] Other XR knee BI 4V FINDINGS: [employer] Other XR knee BI 4V There is mild narrow ing of the medial weightbearing joint spaces. There is mild patellofemoral [employer] Other XR knee BI 4V joint space loss. Th ere is spurring of the poles of the patella bilaterally. There is mild lateral [employer] Other XR knee BI 4V patellar subluxation bilaterally. There is no evidence of acute displaced fracture. Well-corticated [employer] Other XR knee BI 4V ossific structures o r separate from the right medial weightbearing joint space. This may represent a [employer] Other XR knee BI 4V calcified loose bodies. [employer] Other XR knee BI 4V X R/XR knee BI 4V [employer] Other XR knee BI 4V IMPRESSION: [employer] Other XR knee BI 4V Degenerative changes are noted are noted bilaterally, as above. [employer] Other XR knee BI 4V Well-corticated ossi fic structures or separate from the right medial weightbearing joint space. This [employer] Other XR knee BI 4V may represent a calcified loose bodies. [employer] Other XR knee BI 4V No acute displaced fracture. [employer] Other XR knee BI 4V There is mild latera l subluxation of the patella within the patellofemoral joint space bilaterally. [employer] Other XR knee BI 4V Impression dictated by: Emery Lobo M.D.08/25/2021 2:51 PM [employer] Other XR knee BI 4V Dictation Location: [place] [address] [employer] Other XR knee BI 4V Transcribed By: [facility] 08/25/21 [facility] [employer] Other XR knee BI 4V Dictated By: Emery Lobo II, MD 08/25/21 [facility] [employer] Other XR knee BI 4V Signed By: [employer] Other XR knee BI 4V 08/25/21 [facility] [employer] Other XR pelvis 1-2Von 08-25-2021 XR pelvis 1-2V XR/XR pelvis 1-2V: Pain in right knee;Pain in left knee [employer] Other XR pelvis 1-2V XR pelvis 1-2V 08/25/2021 1:32 PM [employer] Other XR pelvis 1-2V SIGNS AND SYMPTOMS: Bilateral generalized knee pain, limited range of motion with weakness [employer] Other XR pelvis 1-2V PROTOCOL: Frontal radiograph of the pelvis [employer] Other XR pelvis 1-2V There is mild narrow ing of the weightbearing joint spaces. Mild degenerative changes are noted in [employer] Other XR pelvis 1-2V the symphysis pubis. There is no evidence of fracture or dislocation. Vascular calcifications are [employer] Other XR pelvis 1-2V present in the pelvis. [employer] Other XR pelvis 1-2V X R/XR pelvis 1-2V [employer] Other XR pelvis 1-2V No fracture or dislocation. [employer] Other XR pelvis 1-2V Mild degenerative changes are noted in the joint space of the hips. [employer] Other XR pelvis 1-2V Impression dictated by: Emery Lobo M.D.08/25/2021 2:54 PM [employer] Other XR pelvis 1-2V Transcribed By: [facility] 08/25/21 [facility] [employer] Other XR pelvis 1-2V Dictated By: Emery Lobo II, MD 08/25/21 [facility] [employer] Other XR pelvis 1-2V 08/25/21 [facility] [employer] Other Vital Signs Date Time Vital Sign Value Performing Clinician Facility 06-04-2025 10:170400 Body height 165.1 cm Shantel Steven MD Work Phone: [facility] 06-04-2025 10:17-0400 Body mass index (BMI) [Ratio] 43.9 kg/m2 Shantel Steven MD Work Phone: [facility] 06-04-2025 10:17-040 Body weight 119.74 kg Shantel Steven MD Work Phone: [facility] 06-04-2025 10:17-0400 Diastolic blood pressure 71 mm[Hg] Shantel Steven MD Work Phone: [facility] 06-04-2025 10:17-0400 Heart rate 57 /min Shantel Steven MD Work Phone: [facility] 06-04-2025 10:17-0400 Systolic blood pressure 161 mm[Hg] Shantel Steven MD Work Phone: [facility] 05-21-2025 11:08-0400 Body height 165.1 cm Shantel Steven MD Work Phone: [facility] 05-21-2025 11:08-0400 Body mass index (BMI) [Ratio] 44.7 kg/m2 Shantel Steven MD Work Phone: [facility] 05-21-2025 11:08-0400 Body weight 122.07 kg Shantel Steven MD Work Phone: [facility] 05-21-2025 11:08-0400 Diastolic blood pressure 93 mm[Hg] Shantel Steven MD Work Phone: [facility] 05-21-2025 11:08-0400 Heart rate 70 /min Shantel Steven MD Work Phone: [facility] 05-21-2025 11:08-0400 Respiratory rate 14 /min Shantel Steven MD Work Phone: [facility] 05-21-2025 11:08-0400 SaO2% (BldA) [Mass fraction] 95 % Shantel Steven MD Work Phone: [facility] 05-21-2025 11:08-0400 Systolic blood pressure 180 mm[Hg] Shantel Steven MD Work Phone: [facility] 04-21-2025 14:20-0400 Body height 165.1 cm Shantel Steven MD Work Phone: [facility] 04-21-2025 14:20-0400 Body mass index (BMI) [Ratio] 42.4 kg/m2 Shantel Steven MD Work Phone: [facility] 04-21-2025 14:20-0400 Body weight 115.66 kg Shantel Steven MD Work Phone: [facility] 04-21-2025 14:20-0400 Diastolic blood pressure 80 mm[Hg] Shantel Steven MD Work Phone: [facility] 04-21-2025 14:20-0400 Heart rate 63 /min Shanetl Steven MD Work Phone: [facility] 04-21-2025 14:20-0400 Systolic blood pressure 165 mm[Hg] Shantel Steven MD Work Phone: [facility] 04-16-2025 10:20-0400 Body height 165.1 cm Shantel Steven MD Work Phone: [facility] 04-16-2025 10:20-0400 Body mass index (BMI) [Ratio] 42.4 kg/m2 Shantel Steven MD Work Phone: [facility] 04-16-2025 10:20-0400 Body weight 115.66 kg Shantel Steven MD Work Phone: [facility] 04-16-2025 10:20-0400 Diastolic blood pressure 77 mm[Hg] Shantel Steven MD Work Phone: [facility] 04-16-2025 10:20-0400 Heart rate 63 /min Shantel Steven MD Work Phone: [facility] 04-16-2025 10:20-0400 Respiratory rate 12 /min Shantel Steven MD Work Phone: [facility] 04-16-2025 10:20-0400 SaO2% (BldA) [Mass fraction] 96 % Shantel Steven MD Work Phone: [facility] 04-16-2025 10:20-0400 Systolic blood pressure 137 mm[Hg] Shantel Steven MD Work Phone: [facility] 03-24-2025 13:57-0400 Body height 165.1 cm Shantel Steven MD Work Phone: [facility] 03-24-2025 13:57-0400 Body mass index (BMI) [Ratio] 42.3 kg/m2 Shantel Steven MD Work Phone: [facility] 03-24-2025 13:57-0400 Body weight 115.21 kg Shantel Steven MD Work Phone: [facility] 03-24-2025 13:57-0400 Diastolic blood pressure 76 mm[Hg] Shantel Steven MD Work Phone: [facility] 03-24-2025 13:57-0400 Heart rate 56 /min Shantel Steven MD Work Phone: [facility] 03-24-2025 13:57-0400 Systolic blood pressure 179 mm[Hg] Shantel Steven MD Work Phone: [facility] 03-12-2025 19:10-0400 Diastolic blood pressure 69 mm[Hg] Shantel Steven MD Work Phone: [facility] 03-12-2025 19:10-0400 Heart rate 57 /min Shantel Steven MD Work Phone: [facility] 03-12-2025 19:10-0400 Respiratory rate 18 /min Shantel Steven MD Work Phone: [facility] 03-12-2025 19:10-0400 SaO2% (BldA) [Mass fraction] 99 % Shantel Steven MD Work Phone: [facility] 03-12-2025 19:10-0400 Systolic blood pressure 164 mm[Hg] Shantel Steven MD Work Phone: [facility] 03-12-2025 13:45-0400 Body height 165.1 cm Shantel Steven MD Work Phone: [facility] 03-12-2025 13:45-0400 Body weight 114.7 kg Shantel Steven MD Work Phone: [facility] 03-12-2025 13:44-0400 Body temperature 97.6 [degF] Shantel Steven MD Work Phone: [facility] 03-10-2025 11:05-0400 Body height 165.1 cm [facility] 03-10-2025 11:05-0400 Body mass index (BMI) [Ratio] 41.1 kg/m2 [facility] 03-10-2025 11:05-0400 Body weight 112.1 kg [facility] 03-10-2025 11:05-0400 Diastolic blood pressure 70 mm[Hg] [facility] 03-10-2025 11:05-0400 Systolic blood pressure 145 mm[Hg] [facility] 02-19-2025 08:58-0400 Body height 165.1 cm [facility] 02-19-2025 08:58-0400 Body mass index (BMI) [Ratio] 41.1 kg/m2 [facility] 02-19-2025 08:58-0400 Body temperature 97.3 [degF] [facility] 02-19-2025 08:58-0400 Body weight 112.09 kg [facility] 02-19-2025 08:58-0400 Diastolic blood pressure 58 mm[Hg] [facility] 02-19-2025 08:58-0400 Heart rate 68 /min [facility] 02-19-2025 08:58-0400 Respiratory rate 18 /min [facility] 02-19-2025 08:58-0400 SaO2% (BldA) [Mass fraction] 96 % [facility] 02-19-2025 08:58-0400 Systolic blood pressure 147 mm[Hg] [facility] 02-09-2025 14:03-0400 Body height 165.1 cm [facility] 02-09-2025 14:03-0400 Body mass index (BMI) [Ratio] 42.5 kg/m2 [facility] 02-09-2025 14:03-0400 Body weight 116.11 kg [facility] 02-09-2025 14:03-0400 Diastolic blood pressure 78 mm[Hg] [facility] 02-09-2025 14:03-0400 Heart rate 79 /min [facility] 02-09-2025 14:03-0400 Respiratory rate 12 /min [facility] 02-09-2025 14:03-0400 Systolic blood pressure 185 mm[Hg] [facility] 01-14-2025 10:00-0500 Body height 165.1 cm Shantel Steven MD Work Phone: [facility] 01-14-2025 10:00-0500 Body mass index (BMI) [Ratio] 44.3 kg/m2 Shantel Steven MD Work Phone: [facility] 01-14-2025 10:00-0500 Body weight 120.88 kg Shantel Steven MD Work Phone: [facility] 01-14-2025 10:00-0500 Diastolic blood pressure 80 mm[Hg] Shantel Steven MD Work Phone: [facility] 01-14-2025 10:00-0500 Heart rate 66 /min Shantel Steven MD Work Phone: [facility] 01-14-2025 10:00-0500 SaO2% (BldA) [Mass fraction] 93 % Shantel Steven MD Work Phone: [facility] 01-14-2025 10:00-0500 Systolic blood pressure 176 mm[Hg] Shantel Steven MD Work Phone: [facility] 01-06-2025 15:22-0500 Body height 165.1 cm Shantel Steven MD Work Phone: [facility] 01-06-2025 15:22-0500 Body mass index (BMI) [Ratio] 44.7 kg/m2 Shantel Steven MD Work Phone: [facility] 01-06-2025 15:22-0500 Body weight 122.01 kg Shantel Steven MD Work Phone: [facility] 01-06-2025 15:22-0500 Diastolic blood pressure 83 mm[Hg] Shantel Steven MD Work Phone: [facility] 01-06-2025 15:22-0500 Heart rate 66 /min Shantel Steven MD Work Phone: [facility] 01-06-2025 15:22-0500 Systolic blood pressure 155 mm[Hg] Shantel Steven MD Work Phone: [facility] 12-26-2024 12:58-0500 Body height 165.1 cm Jorge Luis Tupa DO Work Phone: [facility] 12-26-2024 12:58-0500 Body mass index (BMI) [Ratio] 43.6 kg/m2 Jorge Luis Tupa DO Work Phone: [facility] 12-26-2024 12:58-0500 Body weight 118.84 kg Jorge Luis Tupa DO Work Phone: [facility] 12-26-2024 12:58-0500 Diastolic blood pressure 79 mm[Hg] Jorge Luis Tupa DO Work Phone: [facility] 12-26-2024 12:58-0500 Heart rate 92 /min Jorge Luis Tupa DO Work Phone: [facility] 12-26-2024 12:58-0500 SaO2% (BldA) [Mass fraction] 97 % Jorge Luis Tupa DO Work Phone: [facility] 12-26-2024 12:58-0500 Systolic blood pressure 175 mm[Hg] Jorge Luis Tupa DO Work Phone: [facility] 12-09-2024 13:33-0500 Body height 165.1 cm Jorge Luis Tupa DO Work Phone: [facility] 12-09-2024 13:33-0500 Body mass index (BMI) [Ratio] 43.4 kg/m2 Jorge Luis Tupa DO Work Phone: [facility] 12-09-2024 13:33-0500 Body weight 118.55 kg Jorge Luis Tupa DO Work Phone: [facility] 12-09-2024 13:33-0500 Diastolic blood pressure 83 mm[Hg] Jorge Luis Tupa DO Work Phone: [facility] 12-09-2024 13:33-0500 Heart rate 81 /min Jorge Luis Tupa DO Work Phone: [facility] 12-09-2024 13:33-0500 Respiratory rate 14 /min Jorge Luis Tupa DO Work Phone: [facility] 12-09-2024 13:33-0500 Systolic blood pressure 156 mm[Hg] Jorge Luis Tupa DO Work Phone: [facility] 11-11-2024 13:46-0500 Body height 165.1 cm Jorge Luis Tupa DO Work Phone: [facility] 11-11-2024 13:46-0500 Body mass index (BMI) [Ratio] 41.1 kg/m2 Jorge Luis Tupa DO Work Phone: [facility] 11-11-2024 13:46-0500 Body temperature 97.3 [degF] Jorge Luis Tupa DO Work Phone: [facility] 11-11-2024 13:46-0500 Body weight 112.03 kg Jorge Luis Tupa DO Work Phone: [facility] 11-11-2024 13:46-0500 Diastolic blood pressure 84 mm[Hg] Jorge Luis Tupa DO Work Phone: [facility] 11-11-2024 13:46-0500 Heart rate 95 /min Jorge Luis Tupa DO Work Phone: [facility] 11-11-2024 13:46-0500 Respiratory rate 16 /min Jorge Luis Tupa DO Work Phone: [facility] 11-11-2024 13:46-0500 SaO2% (BldA) [Mass fraction] 96 % Jorge Luis Tupa DO Work Phone: [facility] 11-11-2024 13:46-0500 Systolic blood pressure 145 mm[Hg] Jorge Luis Tupa DO Work Phone: [facility] 11-03-2024 11:43-0500 Body height 165.1 cm Jorge Luis Tupa DO Work Phone: [facility] 11-03-2024 11:43-0500 Body mass index (BMI) [Ratio] 41.1 kg/m2 Jorge Luis Tupa DO Work Phone: [facility] 11-03-2024 11:43-0500 Body weight 112.03 kg Jorge Luis Tupa DO Work Phone: [facility] 11-03-2024 11:43-0500 Diastolic blood pressure 70 mm[Hg] Jorge Luis Tupa DO Work Phone: [facility] 11-03-2024 11:43-0500 Heart rate 78 /min Jorge Luis Tupa DO Work Phone: [facility] 11-03-2024 11:43-0500 SaO2% (BldA) [Mass fraction] 97 % Jorge Luis Tupa DO Work Phone: [facility] 11-03-2024 11:43-0500 Systolic blood pressure 138 mm[Hg] Jorge Luis Tupa DO Work Phone: [facility] 10-25-2024 07:49-0500 Diastolic blood pressure 73 mm[Hg] Jorge Luis Tupa DO Work Phone: [facility] 10-25-2024 07:49-0500 Heart rate 85 /min Jorge Luis Tupa DO Work Phone: [facility] 10-25-2024 07:49-0500 Respiratory rate 18 /min Jorge Luis Tupa DO Work Phone: [facility] 10-25-2024 07:49-0500 SaO2% (BldA) [Mass fraction] 98 % Jorge Luis Tupa DO Work Phone: [facility] 10-25-2024 07:49-0500 Systolic blood pressure 135 mm[Hg] Jorge Luis Tupa DO Work Phone: [facility] 10-25-2024 05:58-0500 Body height 165.1 cm Jorge Luis Tupa DO Work Phone: [facility] 10-25-2024 05:58-0500 Body temperature 98 [degF] Jorge Luis Tupa DO Work Phone: [facility] 10-25-2024 05:58-0500 Body weight 122.92 kg Jorge Luis Tupa DO Work Phone: [facility] 10-22-2024 04:48-0500 Body height 165.1 cm Jorge Luis Tupa DO Work Phone: [facility] 10-22-2024 04:48-0500 Body temperature 98.5 [degF] Jorge Luis Tupa DO Work Phone: [facility] 10-22-2024 04:48-0500 Body weight 114.8 kg Jorge Luis Tupa DO Work Phone: [facility] 10-22-2024 04:48-0500 Diastolic blood pressure 68 mm[Hg] Jorge Luis Tupa DO Work Phone: [facility] 10-22-2024 04:48-0500 Heart rate 100 /min Jorge Luis Tupa DO Work Phone: [facility] 10-22-2024 04:48-0500 Respiratory rate 18 /min Jorge Luis Tupa DO Work Phone: [facility] 10-22-2024 04:48-0500 SaO2% (BldA) [Mass fraction] 97 % Jorge Luis Tupa DO Work Phone: [facility] 10-22-2024 04:48-0500 Systolic blood pressure 132 mm[Hg] Jorge Luis Tupa DO Work Phone: [facility] 10-20-2024 12:00-0500 Body temperature 97.4 [degF] Jorge Luis Tupa DO Work Phone: [facility] 10-20-2024 12:00-0500 Diastolic blood pressure 73 mm[Hg] Jorge Luis Tupa DO Work Phone: [facility] 10-20-2024 12:00-0500 Heart rate 98 /min Jorge Luis Tupa DO Work Phone: [facility] 10-20-2024 12:00-0500 Respiratory rate 20 /min Jorge Luis Tupa DO Work Phone: [facility] 10-20-2024 12:00-0500 SaO2% (BldA) [Mass fraction] 98 % Jorge Luis Tupa DO Work Phone: [facility] 10-20-2024 12:00-0500 Systolic blood pressure 116 mm[Hg] Jorge Luis Tupa DO Work Phone: [facility] 10-20-2024 05:57-0500 Body weight 110.9 kg Jorge Luis Tupa DO Work Phone: [facility] 10-17-2024 14:18-0500 Body height 165.1 cm Jorge Luis Tupa DO Work Phone: [facility] 10-01-2024 09:51-0500 Body height 165.1 cm Christel Chacon MD Work Phone: [facility] 10-01-2024 09:51-0500 Body mass index (BMI) [Ratio] 42.27 kg/m2 Christel Chacon MD Work Phone: [facility] 10-01-2024 09:51-0500 Body weight 115.21 kg Christel Chacon MD Work Phone: [facility] 10-01-2024 09:51-0500 Diastolic blood pressure 110 mm[Hg] Christel Chacon MD Work Phone: [facility] 10-01-2024 09:51-0500 Systolic blood pressure 138 mm[Hg] Christel Chacon MD Work Phone: [facility] 08-07-2024 10:04-0400 Body height 165.1 cm MD Shantel Steven Work Phone: [facility] 08-07-2024 10:04-0400 Body mass index (BMI) [Ratio] 43.1 kg/m2 MD Shantel Steven Work Phone: [facility] 08-07-2024 10:04-0400 Body weight 117.48 kg MD Shantel Steven Work Phone: [facility] 08-07-2024 10:04-0400 Diastolic blood pressure 69 mm[Hg] MD Shantel Steven Work Phone: [facility] 08-07-2024 10:04-0400 Heart rate 52 /min MD Shantel Steven Work Phone: [facility] 08-07-2024 10:04-0400 SaO2% (BldA) [Mass fraction] 93 % MD Shantel Steven Work Phone: [facility] 08-07-2024 10:04-0400 Systolic blood pressure 117 mm[Hg] MD Shantel Steven Work Phone: [facility] 07-22-2024 13:15-0400 Body height 165.1 cm Christel Chacon MD Work Phone: [facility] 07-22-2024 13:15-0400 Body mass index (BMI) [Ratio] 42.6 kg/m2 Christel Chaocn MD Work Phone: [facility] 07-22-2024 13:15-0400 Body weight 116.12 kg Christel Chacon MD Work Phone: [facility] 07-22-2024 13:15-0400 Diastolic blood pressure 82 mm[Hg] Christel Chacon MD Work Phone: [facility] 07-22-2024 13:15-0400 Systolic blood pressure 130 mm[Hg] Christel Chacon MD Work Phone: [facility] 07-16-2024 10:20-0400 Body height 165.1 cm MD Shantel Steven Work Phone: [facility] 07-16-2024 10:20-0400 Body mass index (BMI) [Ratio] 43.1 kg/m2 MD Shantel Steven Work Phone: [facility] 07-16-2024 10:20-0400 Body weight 117.48 kg MD Shantel Steven Work Phone: [facility] 07-16-2024 10:20-0400 Diastolic blood pressure 80 mm[Hg] MD Shantel Steven Work Phone: [facility] 07-16-2024 10:20-0400 Heart rate 60 /min MD Shantel Steven Work Phone: [facility] 07-16-2024 10:20-0400 Systolic blood pressure 151 mm[Hg] MD Shantel Steven Work Phone: [facility] 07-10-2024 13:40-0400 Body height 165.1 cm Lizett Gillmor [employer] MANAGER Work Phone: [facility] 07-10-2024 13:40-0400 Body mass index (BMI) [Ratio] 42.43 kg/m2 Lizett Gillmor FITNESS MANAGER Work Phone: [facility] 07-10-2024 13:40-0400 Body weight 115.67 kg Lizett Gillmor FITNESS MANAGER Work Phone: [facility] 07-10-2024 13:40-0400 Diastolic blood pressure 86 mm[Hg] Lizett Gillmor FITNESS MANAGER Work Phone: [facility] 07-10-2024 13:40-0400 Systolic blood pressure 132 mm[Hg] Lizett Gillmor FITNESS MANAGER Work Phone: [facility] 07-07-2024 11:41-0400 Body height 165.1 cm MD Shantel Steven Work Phone: [facility] 07-07-2024 11:41-0400 Body mass index (BMI) [Ratio] 42.4 kg/m2 MD Shantel Steven Work Phone: [facility] 07-07-2024 11:41-0400 Body weight 115.66 kg MD Shantel Steven Work Phone: [facility] 07-07-2024 11:41-0400 Diastolic blood pressure 79 mm[Hg] MD Shantel Steven Work Phone: [facility] 07-07-2024 11:41-0400 Heart rate 66 /min MD Shantel Steven Work Phone: [facility] 07-07-2024 11:41-0400 Systolic blood pressure 132 mm[Hg] MD Shantel Steven Work Phone: [facility] 06-16-2024 13:08-0400 Body height 165.1 cm MD Shantel Steven Work Phone: [facility] 06-16-2024 13:08-0400 Body mass index (BMI) [Ratio] 41.9 kg/m2 MD Shantel Steven Work Phone: [facility] 06-16-2024 13:08-0400 Body weight 114.3 kg MD Shantel Steven Work Phone: [facility] 06-16-2024 13:08-0400 Diastolic blood pressure 73 mm[Hg] MD Shantel Steven Work Phone: [facility] 06-16-2024 13:08-0400 Heart rate 55 /min MD Shantel Steven Work Phone: [facility] 06-16-2024 13:08-0400 Systolic blood pressure 137 mm[Hg] MD Shantel Steven Work Phone: [facility] 06-05-2024 11:51-0400 Body height 165.1 cm MD Shantel Steven Work Phone: [facility] 06-05-2024 11:51-0400 Body mass index (BMI) [Ratio] 43.2 kg/m2 MD Shantel Steven Work Phone: [facility] 06-05-2024 11:51-0400 Body temperature 96.6 [degF] MD Shantel Steven Work Phone: [facility] 06-05-2024 11:51-0400 Body weight 117.7 kg MD Shantel Steven Work Phone: [facility] 06-05-2024 11:51-0400 Diastolic blood pressure 74 mm[Hg] MD Shantel Steven Work Phone: [facility] 06-05-2024 11:51-0400 Heart rate 63 /min MD Shantel Steven Work Phone: [facility] 06-05-2024 11:51-0400 Respiratory rate 18 /min MD Shantel Steven Work Phone: [facility] 06-05-2024 11:51-0400 SaO2% (BldA) [Mass fraction] 97 % MD Shantel Steven Work Phone: [facility] 06-05-2024 11:51-0400 Systolic blood pressure 138 mm[Hg] MD Shantel Steven Work Phone: [facility] 05-22-2024 09:18-0400 Heart rate 55 /min MD Shantel Steven Work Phone: [facility] 05-22-2024 09:09-0400 Body temperature 97.8 [degF] MD Shantel Steven Work Phone: [facility] 05-22-2024 09:09-0400 Diastolic blood pressure 64 mm[Hg] MD Shantel Steven Work Phone: [facility] 05-22-2024 09:09-0400 Respiratory rate 22 /min MD Shantel Steven Work Phone: [facility] 05-22-2024 09:09-0400 SaO2% (BldA) [Mass fraction] 94 % MD Shantel Steven Work Phone: [facility] 05-22-2024 09:09-0400 Systolic blood pressure 140 mm[Hg] MD Shantel Steven Work Phone: [facility] 05-22-2024 09:08-0400 Body height 165.1 cm MD Shantel Steven Work Phone: [facility] 05-22-2024 09:08-0400 Body weight 117.48 kg MD Shantel Steven Work Phone: [facility] 05-19-2024 14:16-0400 Body height 165.1 cm MD Shantel Steven Work Phone: [facility] 05-19-2024 14:16-0400 Body mass index (BMI) [Ratio] 43.1 kg/m2 MD Shantel Steven Work Phone: [facility] 05-19-2024 14:16-0400 Body weight 117.48 kg MD Shantel Steven Work Phone: [facility] 05-19-2024 14:16-0400 Diastolic blood pressure 72 mm[Hg] MD Shantel Steven Work Phone: [facility] 05-19-2024 14:16-0400 Heart rate 56 /min MD Shantel Steven Work Phone: [facility] 05-19-2024 14:16-0400 Systolic blood pressure 133 mm[Hg] MD Shantel Steven Work Phone: [facility] 05-07-2024 11:52-0400 Body height 165.1 cm MD Shantel Steven Work Phone: [facility] 05-07-2024 11:52-0400 Body mass index (BMI) [Ratio] 41.5 kg/m2 MD Shantel Steven Work Phone: [facility] 05-07-2024 11:52-0400 Body temperature 98.5 [degF] MD Shantel Steven Work Phone: [facility] 05-07-2024 11:52-0400 Body weight 113.39 kg MD Shantel Steven Work Phone: [facility] 05-07-2024 11:52-0400 Diastolic blood pressure 81 mm[Hg] MD Shantel Steven Work Phone: [facility] 05-07-2024 11:52-0400 Heart rate 91 /min MD Shantel Steven Work Phone: [facility] 05-07-2024 11:52-0400 Systolic blood pressure 141 mm[Hg] MD Shantel Steven Work Phone: [facility] 04-29-2024 12:54-0400 Body height 165.1 cm MD Shantel Steven Work Phone: [facility] 04-29-2024 12:54-0400 Body mass index (BMI) [Ratio] 41.5 kg/m2 MD Shantel Steven Work Phone: [facility] 04-29-2024 12:54-0400 Body weight 113.39 kg MD Shantel Steven Work Phone: [facility] 04-29-2024 12:54-0400 Diastolic blood pressure 58 mm[Hg] MD Shantel Steven Work Phone: [facility] 04-29-2024 12:54-0400 Heart rate 54 /min MD Shantel Steven Work Phone: [facility] 04-29-2024 12:54-0400 Systolic blood pressure 90 mm[Hg] MD Shantel Steven Work Phone: [facility] 04-03-2024 11:29-0400 Body height 165.1 cm MD Shantel Steven Work Phone: [facility] 04-03-2024 11:29-0400 Body mass index (BMI) [Ratio] 43.7 kg/m2 MD Shantel Steven Work Phone: [facility] 04-03-2024 11:29-0400 Body weight 119.29 kg MD Shantel Steven Work Phone: [facility] 04-03-2024 11:29-0400 Diastolic blood pressure 71 mm[Hg] MD Shantel Steven Work Phone: [facility] 04-03-2024 11:29-0400 Heart rate 56 /min MD Shantel Steven Work Phone: [facility] 04-03-2024 11:29-0400 Systolic blood pressure 116 mm[Hg] MD Shantel Steven Work Phone: [facility] 03-25-2024 15:15-0400 Body height 165.1 cm MD Shantel Steven Work Phone: [facility] 03-25-2024 15:15-0400 Body mass index (BMI) [Ratio] 43.9 kg/m2 MD Shantel Steven Work Phone: [facility] 03-25-2024 15:15-0400 Body weight 119.74 kg MD Shantel Steven Work Phone: [facility] 03-25-2024 15:15-0400 Diastolic blood pressure 87 mm[Hg] MD Shantel Steven Work Phone: [facility] 03-25-2024 15:15-0400 Heart rate 66 /min MD Shantel Steven Work Phone: [facility] 03-25-2024 15:15-0400 Systolic blood pressure 125 mm[Hg] MD Shantel Steven Work Phone: [facility] 02-15-2024 14:18-0400 Body height 165.1 cm [facility] 02-15-2024 14:18-0400 Body mass index (BMI) [Ratio] 38.6 kg/m2 [facility] 02-15-2024 14:18-0400 Body weight 105.23 kg [facility] 02-15-2024 14:18-0400 Diastolic blood pressure 66 mm[Hg] [facility] 02-15-2024 14:18-0400 Heart rate 55 /min [facility] 02-15-2024 14:18-0400 Systolic blood pressure 114 mm[Hg] [facility] 01-18-2024 10:23-0500 Body height 165.1 cm [facility] 01-18-2024 10:23-0500 Body mass index (BMI) [Ratio] 43.2 kg/m2 [facility] 01-18-2024 10:23-0500 Body weight 117.93 kg [facility] 01-18-2024 10:23-0500 Diastolic blood pressure 70 mm[Hg] [facility] 01-18-2024 10:23-0500 Heart rate 98 /min [facility] 01-18-2024 10:23-0500 SaO2% (BldA) [Mass fraction] 65 % [facility] 01-18-2024 10:23-0500 Systolic blood pressure 110 mm[Hg] [facility] 10-23-2023 16:00-0500 Body height 165.1 cm Jaleesa [employer] Other [employer] [facility] [employer] Other 10-23-2023 16:00-0500 Body mass index (BMI) [Ratio] 44.63 kg/m2 Jaleesa [employer] Other [employer] Other 10-23-2023 16:00-0500 Body temperature 96.8 [degF] Aziz [employer] Other [employer] Other 10-23-2023 16:00-0500 Body weight 121.66 kg Aziz [employer] Other [employer] Other 10-23-2023 16:00-0500 Diastolic blood pressure 60 mm[Hg] Aziz [employer] Other [employer] Other 10-23-2023 16:00-0500 Respiratory rate 18 /min [employer] Other [employer] Other 10-23-2023 16:00-0500 SaO2% (BldA) [Mass fraction] 99 % Jaleesa Vanessa Other [employer] Other 10-23-2023 16:00-0500 Systolic blood pressure 124 mm[Hg] Jaleesa Vanessa Other [employer] Other 10-18-2023 13:45-0500 Body height 165.1 cm Shantel Steven Other [employer] Other 10-18-2023 13:45-0500 Body mass index (BMI) [Ratio] 44.86 kg/m2 Shantel Steven Other [employer] Other 10-18-2023 13:45-0500 Body temperature 97.3 [degF] Shantel Steven Other [employer] Other 10-18-2023 13:45-0500 Body weight 122.29 kg Shantel Steven Other [employer] Other 10-18-2023 13:45-0500 Diastolic blood pressure 84 mm[Hg] Shantel Steven Other [employer] Other 10-18-2023 13:45-0500 SaO2% (BldA) [Mass fraction] 97 % Shantel Steven Other [employer] Other 10-18-2023 13:45-0500 Systolic blood pressure 132 mm[Hg] Shantel Steven Other [employer] Other 09-04-2023 14:00-0400 Body height 165.1 cm Shantel Steven Other [employer] Other 09-04-2023 14:00-0400 Body mass index (BMI) [Ratio] 43.06 kg/m2 Shantel Steven Other [employer] Other 09-04-2023 14:00-0400 Body weight 117.39 kg Shantel Steven Other [employer] Other 09-04-2023 14:00-0400 Diastolic blood pressure 69 mm[Hg] Shantel Steven Other [employer] Other 09-04-2023 14:00-0400 Systolic blood pressure 127 mm[Hg] Shantel Steven Other [employer] Other 07-17-2023 10:00-0400 Body height 165.1 cm Shantel Steven Other [employer] Other 07-17-2023 10:00-0400 Body mass index (BMI) [Ratio] 43.03 kg/m2 Shantel Steven Other [employer] Other 07-17-2023 10:00-0400 Body weight 117.3 kg Shantel Steven Other [employer] Other 07-17-2023 10:00-0400 Diastolic blood pressure 76 mm[Hg] Shantel Steven Other [employer] Other 07-17-2023 10:00-0400 Systolic blood pressure 164 mm[Hg] Shantel Steven Other [employer] Other 04-30-2023 14:30-0400 Body height 165.1 cm Shantel Steven Other [employer] Other 04-30-2023 14:30-0400 Body mass index (BMI) [Ratio] 43.43 kg/m2 Shantel Steven Other [employer] Other 04-30-2023 14:30-0400 Body weight 118.39 kg Shantel Steven Other [employer] Other 04-30-2023 14:30-0400 Diastolic blood pressure 75 mm[Hg] Shantel Steven Other [employer] Other 04-30-2023 14:30-0400 Systolic blood pressure 135 mm[Hg] Shantel Steven Other [employer] Other 03-09-2023 12:15-0400 Body height 165.1 cm Shantel Steven Other [employer] Other 03-09-2023 12:15-0400 Body mass index (BMI) [Ratio] 43.59 kg/m2 Shantel Steven Other [employer] Other 03-09-2023 12:15-0400 Body weight 118.84 kg Shantel Steven Other [employer] Other 03-09-2023 12:15-0400 Diastolic blood pressure 82 mm[Hg] Shantel Steven Other [employer] Other 03-09-2023 12:15-0400 SaO2% (BldA) [Mass fraction] 97 % Shantel Steven Other [employer] Other 03-09-2023 12:15-0400 Systolic blood pressure 130 mm[Hg] Shantel Steven Other [employer] Other 02-20-2023 10:00-0400 Body height 165.1 cm Shantel Steven Other [employer] Other 02-20-2023 10:00-0400 Body mass index (BMI) [Ratio] 41.93 kg/m2 Shantel Steven Other [employer] Other 02-20-2023 10:00-0400 Body weight 114.31 kg Shantel Steven Other [employer] Other 02-20-2023 10:00-0400 Diastolic blood pressure 84 mm[Hg] Shantel Steven Other [employer] Other 02-20-2023 10:00-0400 Systolic blood pressure 132 mm[Hg] Shantel Steven Other [employer] Other 08-04-2022 13:33-0400 Blood Pressure Location [facility] 08-04-2022 13:33-0400 Diastolic blood pressure 88 mm[Hg] [facility] 08-04-2022 13:33-0400 Heart rate 76 /min [facility] 08-04-2022 13:33-0400 Respiratory rate 16 /min [facility] 08-04-2022 13:33-0400 Systolic blood pressure 130 mm[Hg] Bin NILL [facility] 08-25-2021 14:30-0400 Body height 165.1 cm Akbar Cui II Other [employer] Other 08-25-2021 14:30-0400 Body mass index (BMI) [Ratio] 43.26 kg/m2 Akbar Cui II Other [employer] Other 08-25-2021 14:30-0400 Body weight 117.94 kg Akbar Cui II Other [facility] [employer] Other Encounters Encounter Date Encounter Type Care Provider Facility Start: 06-15-2025 End: 06-15-2025 ambulatory Shantel Steven MD Work Phone: [facility] Work Phone: Start: 06-15-2025 End: 06-15-2025 Shantel Steven MD -[facility] Work Phone: Start: 06-10-2025 Wandy Alvarez [facility] Work Phone: Start: 06-10-2025 Osbaldo Marlow MD -[facility] Work Phone: Start: 06-09-2025 Osbaldo Marlow MD -[facility] Work Phone: Start: 06-08-2025 Jarred Cardona -[facility] Work Phone: Start: 06-04-2025 End: 06-04-2025 ambulatory Shantel Steven MD Work Phone: [facility] Work Phone: Start: 06-04-2025 End: 06-04-2025 Shantel Steven MD -[facility] Work Phone: Start: 06-02-2025 End: 06-02-2025 ambulatory Shantel Steven MD Work Phone: [facility] Work Phone: Start: 06-02-2025 End: 06-02-2025 Shantel Steven MD -[facility] Work Phone: Start: 05-31-2025 Monica Stewart MD -[facility] Work Phone: Start: 05-30-2025 Monica Stewart MD -[facility] Work Phone: Start: 05-29-2025 Monica Stewart MD -[facility] Work Phone: Start: 05-28-2025 Analisa Bryant MD [facility] Work Phone: Start: 05-21-2025 End: 05-21-2025 ambulatory Shantel Steven MD Work Phone: [facility] Work Phone: Start: 05-21-2025 End: 05-21-2025 Patient encounter procedure Shantel Steven MD -[facility] Work Phone: Start: 05-21-2025 End: 05-21-2025 Shantel Steven MD -[facility] Work Phone: Start: 05-13-2025 Non-patient / Non-visit Wandy Bowen [facility] -[facility] Work Phone: Start: 05-13-2025 Wandy Alvarez [facility] Work Phone: Start: 05-11-2025 Non-patient / Non-visit Cheng Ross [facility] Work Phone: Start: 05-11-2025 Cheng Ross [facility] Work Phone: Start: 04-22-2025 End: 04-22-2025 ambulatory [facility] Start: 04-21-2025 End: 04-21-2025 ambulatory Shantel Steven MD Work Phone: [facility] Work Phone: Start: 04-21-2025 End: 04-21-2025 Patient encounter procedure Cheng Ross [facility] Work Phone: Start: 04-21-2025 End: 04-21-2025 Shantel Steven MD Work Phone: [facility] Work Phone: Start: 04-16-2025 End: 04-16-2025 ambulatory Shantel Steven MD Work Phone: [facility] Work Phone: Start: 04-16-2025 End: 04-16-2025 Patient encounter procedure Shantel Steven MD -[facility] Work Phone: Start: 04-16-2025 End: 04-16-2025 Shantel Steven MD Work Phone: [facility] Work Phone: Start: 03-24-2025 End: 03-24-2025 ambulatory Shantel Steven MD Work Phone: [facility] Work Phone: Start: 03-24-2025 End: 03-24-2025 Patient encounter procedure Shantel Steven MD -[facility] Work Phone: Start: 03-24-2025 End: 03-24-2025 Shantel Steven MD Work Phone: [facility] Work Phone: Start: 03-13-2025 Non-patient / Non-visit Wandy Bowen CMA -[facility] Work Phone: Start: 03-13-2025 Shantel Cardona Work Phone: [facility] Work Phone: Start: 03-12-2025 End: 03-12-2025 Shantel Steven MD Work Phone: [facility] Ctr-Emergency Room Work Phone: Start: 03-12-2025 End: 03-12-2025 Emergency department patient visit Shantel Steven MD Work Phone: [facility] Work Phone: Start: 03-10-2025 End: 03-10-2025 ambulatory [facility] Work Phone: Start: 03-10-2025 End: 03-10-2025 Patient encounter procedure [facility] Physician [facility] Health Gastro Work Phone: Start: 03-10-2025 End: 03-10-2025 Shantel Steven MD Work Phone: [facility] Physician [facility] Work Phone: Start: 03-02-2025 End: 03-02-2025 ambulatory [facility] Start: 03-02-2025 Non-patient / Non-visit [facility] Physician [facility] Work Phone: Start: 03-02-2025 Shantel Cardona Work Phone: [facility] Physician [facility] Work Phone: Start: 02-19-2025 End: 02-19-2025 ambulatory [facility] Work Phone: Start: 02-19-2025 End: 02-19-2025 Patient encounter procedure [facility] Physician [facility] Work Phone: Start: 02-19-2025 End: 02-19-2025 Shantel Steven MD Work Phone: [facility] Physician [facility] Work Phone: Start: 02-09-2025 End: 02-09-2025 ambulatory [facility] Work Phone: Start: 02-09-2025 End: 02-09-2025 Patient encounter procedure [facility] Physician [facility] Work Phone: Start: 02-09-2025 End: 02-09-2025 Shantel Steven MD Work Phone: [facility] Physician Group-[facility] Work Phone: Start: 01-28-2025 End: 01-28-2025 ambulatory [facility] Start: 01-28-2025 Non-patient / Non-visit [facility] Work Phone: Start: 01-28-2025 Shantel Cardona Work Phone: [facility] Work Phone: Start: 01-27-2025 Non-patient / Non-visit [facility] Work Phone: Start: 01-27-2025 Shantel Cardona Work Phone: [facility] Work Phone: Start: 01-26-2025 Non-patient / Non-visit [facility] Work Phone: Start: 01-26-2025 Shantel Cardona Work Phone: [facility] Work Phone: Start: 01-25-2025 Non-patient / Non-visit [facility] Work Phone: Start: 01-25-2025 Shantel Cardona Work Phone: [facility] Work Phone: Start: 01-21-2025 End: 01-21-2025 ambulatory Shantel Steven MD Work Phone: [facility] Work Phone: Start: 01-21-2025 End: 01-21-2025 Patient encounter procedure Shantel Steven MD Work Phone: [facility] Work Phone: Start: 01-21-2025 End: 01-21-2025 Shantel Steven MD Work Phone: [facility] Work Phone: Start: 01-14-2025 End: 01-14-2025 ambulatory Shantel Steven MD Work Phone: [facility] Work Phone: Start: 01-14-2025 End: 01-14-2025 Patient encounter procedure Shantel Steven MD Work Phone: [facility] Work Phone: Start: 01-14-2025 End: 01-14-2025 Shantel Steven MD Work Phone: [facility] Work Phone: Start: 01-07-2025 End: 01-07-2025 Telephone encounter Christel Chacon MD Work Phone: [facility] Comment on above: referral to Dr Estrada baer Start: 01-06-2025 End: 01-06-2025 Patient encounter procedure Shantel Steven MD Work Phone: [facility] Work Phone: Start: 01-06-2025 End: 01-06-2025 Shantel Steven MD Work Phone: [facility] Work Phone: Start: 01-06-2025 End: 01-06-2025 Telephone encounter Christel Chacon MD Work Phone: [facility] Comment on above: sleep study appt Start: 12-26-2024 End: 12-26-2024 ambulatory Jorge Luis Vandana Zavala DO Work Phone: [facility] Work Phone: Start: 12-26-2024 End: 12-26-2024 Patient encounter procedure Jorge Luis Zavala DO Work Phone: [facility] Physician [facility] Work Phone: Start: 12-26-2024 End: 12-26-2024 Shantel Steven MD Work Phone: [facility] Work Phone: Start: 12-18-2024 End: 12-18-2024 ambulatory FRANCHESCA PERAZA Facility:[facility] Start: 12-18-2024 End: 12-18-2024 Patient encounter procedure FRANCHESCA CUELLARRY [facility] Start: 12-09-2024 End: 12-09-2024 Patient encounter procedure Jorge Luis Camargopa DO Work Phone: [facility] Work Phone: Start: 12-08-2024 Non-patient / Non-visit Oni miranda Tupa DO Work Phone: [facility] Work Phone: Start: 12-08-2024 End: 12-08-2024 ambulatory FRANCHESCA PERAZA Facility:[facility] Start: 12-08-2024 End: 12-08-2024 Patient encounter procedure FRANCHESCA CUELLARRY [facility] Start: 12-04-2024 Non-patient / Non-visit Oni miranda Tupa DO Work Phone: [facility] ER Work Phone: Start: 12-04-2024 Non-patient / Non-visit Oni k Tupa DO Work Phone: [facility] Work Phone: Start: 12-02-2024 End: 12-02-2024 ambulatory [facility] Start: 11-13-2024 End: 11-13-2024 ambulatory FRANCHESCA PERAZA Facility:[facility] Start: 11-13-2024 End: 11-13-2024 Patient encounter procedure FRANCHESCA PERAZA [facility] Start: 11-11-2024 End: 11-11-2024 Patient encounter procedure Jorge Luis Zavala DO Work Phone: [facility] Physician Group-[facility] [place] Work Phone: Start: 11-10-2024 Non-patient / Non-visit Onipamela Camargopa DO Work Phone: [facility] Physician [facility] Work Phone: Start: 11-06-2024 ambulatory FRANCHESCA E STU Facili ty:[facility] [place] Start: 11-04-2024 End: 11-04-2024 ambulatory FRANCHESCA E STU Facility:[facility] Start: 11-04-2024 End: 11-04-2024 Patient encounter procedure FRANCHESCA Jenny PERAZA [facility] Start: 11-03-2024 End: 11-03-2024 Patient encounter procedure Jorge Luis Zavala DO Work Phone: [facility] Physician [facility] Work Phone: Start: 10-31-2024 ambulatory [facility] Start: 10-25-2024 End: 10-25-2024 Emergency department patient visit Jorge Luis Zavala DO Work Phone: [facility]-Emergency Room Work Phone: Start: 10-24-2024 Non-patient / Non-visit Onipamela Camargopa DO Work Phone: [facility] Physician [facility] Work Phone: Start: 10-22-2024 End: 10-22-2024 Emergency department patient visit Jorge Luis Camargopa DO Work Phone: [facility] Ctr-Emergency Room Work Phone: Start: 10-21-2024 Non-patient / Non-visit Onipamela Camargopa DO Work Phone: [facility] Physician [facility] Work Phone: Start: 10-17-2024 Non-patient / Non-visit Onipamela Camargopa DO Work Phone: [facility] Physician [facility] Cardiology Work Phone: Start: 10-17-2024 Non-patient / Non-visit Oni Camargopa DO Work Phone: [facility] Physician [facility] Pulmonary Work Phone: Start: 10-16-2024 Non-patient / Non-visit Oni Camargopa DO Work Phone: [facility] Physician [facility] Neph [place] Work Phone: Start: 10-16-2024 End: 10-20-2024 Evaluation and management of inpatient Jorge Luis Zavala DO Work Phone: [facility] Ctr-3 [place] [facility] Work Phone: Start: 10-08-2024 End: 10-08-2024 ambulatory [facility] Start: 10-01-2024 End: 10-01-2024 Bamboo flowsheet Christel [...] / Non-visit Oni Camargopa DO Work Phone: [facility] Physician [facility] Work Phone: Start: 09-26-2024 End: 09-30-2024 Telephone encounter Christel Chacon MD Work Phone: [facility] Start: 09-03-2024 ambulatory [facility] Start: 08-20-2024 End: 08-20-2024 ambulatory [facility] Start: 08-07-2024 End: 08-07-2024 ambulatory MD Shantel Steven Work Phone: [facility] Work Phone: Start: 08-07-2024 End: 08-07-2024 Patient encounter procedure MD Shantel Steven Work Phone: [facility] Work Phone: Start: 07-30-2024 Non-patient / Non-visit MD Alessia Steven Work Phone: [facility] Work Phone: Start: 07-25-2024 Non-patient / Non-visit MD Alessia Steven Work Phone: [facility] Work Phone: Start: 07-24-2024 Non-patient / Non-visit MD Alessia Steven Work Phone: [facility] Work Phone: Start: 07-22-2024 [...] tightness Start: 07-22-2024 End: 07-22-2024 ambulatory CHRISTEL CHAOCN Not Available Start: 07-17-2024 End: 07-17-2024 Patient encounter procedure MD Shantel Steven Work Phone: [facility] Work Phone: Start: 07-17-2024 End: 07-17-2024 ambulatory MD Shantel Steven Work Phone: [facility] Work Phone: Start: 07-17-2024 End: 07-17-2024 Departed Referred MD Shantel Steven Work Phone: [facility]-Lab Main [place] Work Phone: Start: 07-17-2024 End: 07-17-2024 MD Shantel Steven Work Phone: [facility] Work Phone: Start: 07-16-2024 End: 07-16-2024 ambulatory MD Shantel Steven Work Phone: [facility] Work Phone: Start: 07-16-2024 End: 07-16-2024 Patient encounter procedure MD Shantel Steven Work Phone: [facility] Work Phone: Start: 07-16-2024 End: 07-16-2024 MD Shantel Steven Work Phone: [facility] Work Phone: Start: 07-15-2024 End: 07-15-2024 Non-patient / Non-visit MD Shantel Steven Work Phone: [facility] Work Phone: Start: 07-15-2024 Non-patient / Non-visit MD Alessia Steven Work Phone: [facility] Work Phone: Start: 07-15-2024 MD Shantel painting Work Phone: [facility] Work Phone: Start: 07-14-2024 Non-patient / Non-visit MD Alessia Steven Work Phone: [facility] Work Phone: Start: 07-14-2024 MD Shantel painting Work Phone: [facility] Work Phone: Start: 07-10-2024 End: 07-10-2024 Bamboo flowsheet Lizett Winstonr FITNESS MANAGER Work Phone: [employer] Start: 07-10-2024 End: 07-10-2024 Bamboo flowsheet Lizett Mariemor FITNESS MANAGER Work Phone: [employer] Start: 07-10-2024 End: 07-10-2024 Office outpatient visit 25 minutes Lizett Mariemor FITNESS MANAGER Work Phone: [employer] Comment on above: Essential tremor (Pr imary Dx); Diabetic polyneuropathy associated with type 2 diabetes mellitus (CMS/HCC); Balance disorder; Sensory ataxia; Debility; Weakness; Paresthesias Start: 07-10-2024 End: 07-10-2024 ambulatory LIZETT WINSTONR Not Available Start: 07-07-2024 End: 07-07-2024 ambulatory MD Shantel Steven Work Phone: [facility] Work Phone: Start: 07-07-2024 End: 07-07-2024 Patient encounter procedure MD Shantel Steven Work Phone: [facility] Work Phone: Start: 07-07-2024 End: 07-07-2024 MD Shantel Steven Work Phone: [facility] Work Phone: Start: 06-25-2024 ambulatory MD Shantel gray Work Phone: [facility] Work Phone: Start: 06-25-2024 Non-patient / Non-visit MD Alessia Steven Work Phone: [facility] Work Phone: Start: 06-25-2024 MD Shantel painting Work Phone: [facility] Work Phone: Start: 06-24-2024 Non-patient / Non-visit MD Alessia Steven Work Phone: [facility] Work Phone: Start: 06-24-2024 MD Shantel painting Work Phone: [facility] Work Phone: Start: 06-18-2024 End: 06-18-2024 ambulatory [facility] Start: 06-16-2024 End: 06-16-2024 ambulatory MD Shantel Steven Work Phone: [facility] Work Phone: Start: 06-16-2024 End: 06-16-2024 Patient encounter procedure MD Shantel Steven Work Phone: [facility] Physician [facility] Work Phone: Start: 06-16-2024 End: 06-16-2024 MD Shantel Steven Work Phone: [facility] Work Phone: Start: 06-10-2024 Non-patient / Non-visit MD Alessia Steven Work Phone: [facility] Work Phone: Start: 06-10-2024 MD Shantel painting Work Phone: [facility] Work Phone: Start: 06-09-2024 Non-patient / Non-visit MD Alessia Steven Work Phone: [facility] Work Phone: Start: 06-09-2024 MD Shantel painting Work Phone: [facility] Work Phone: Start: 06-05-2024 End: 06-05-2024 ambulatory MD Shantel Steven Work Phone: [facility] Work Phone: Start: 06-05-2024 End: 06-05-2024 Patient encounter procedure MD Shantel Steven Work Phone: [facility] [place] Work Phone: Start: 06-05-2024 End: 06-05-2024 MD Shantel Steven Work Phone: [facility] [place] Work Phone: Start: 06-01-2024 Non-patient / Non-visit MD Alessia Steven Work Phone: [facility] Work Phone: Start: 06-01-2024 MD Shantel painting Work Phone: [facility] Work Phone: Start: 05-26-2024 Non-patient / Non-visit MD Alessia Steven Work Phone: [facility] Work Phone: Start: 05-26-2024 MD Shantel painting Work Phone: [facility] Work Phone: Start: 05-22-2024 End: 05-22-2024 Emergency department patient visit MD Shantel Steven Work Phone: [facility] Ctr-Emergency Room Work Phone: Start: 05-22-2024 End: 05-22-2024 MD Shantel Steven Work Phone: [facility] Ctr-Emergency Room Work Phone: Start: 05-20-2024 Non-patient / Non-visit MD Alessia Steven Work Phone: [facility] Physician [facility] Work Phone: Start: 05-20-2024 MD Shantel painting Work Phone: [facility] Work Phone: Start: 05-19-2024 End: 05-19-2024 ambulatory MD Shantel Steven Work Phone: [facility] Work Phone: Start: 05-19-2024 End: 05-19-2024 Patient encounter procedure MD Shantel Steven Work Phone: [facility] Physician Group-[facility] Work Phone: Start: 05-19-2024 End: 05-19-2024 MD Shantel Steven Work Phone: [facility] Physician [facility] Work Phone: Start: 05-07-2024 End: 05-07-2024 ambulatory MD Shantel Steven Work Phone: [facility] Work Phone: Start: 05-07-2024 End: 05-07-2024 Patient encounter procedure MD Shantel Steven Work Phone: [facility] Physician Group-[facility] Work Phone: Start: 05-07-2024 End: 05-07-2024 MD Shantel Steven Work Phone: [facility] Physician [facility] Work Phone: Start: 05-06-2024 Non-patient / Non-visit MD Alessia Steven Work Phone: [facility] Work Phone: Start: 05-06-2024 MD Shantel painting Work Phone: [facility] Work Phone: Start: 05-05-2024 Non-patient / Non-visit MD Alessia Steven Work Phone: [facility] Work Phone: Start: 05-05-2024 MD Shantel painting Work Phone: [facility] Work Phone: Start: 05-04-2024 End: 05-06-2024 Non-patient / Non-visit MD Shantel Steven Work Phone: [facility] Work Phone: Start: 05-04-2024 End: 05-06-2024 MD Shantel Steven Work Phone: [facility] Work Phone: Start: 05-04-2024 Non-patient / Non-visit MD Alessia Steven Work Phone: [facility] Work Phone: Start: 05-04-2024 MD Shantel painting Work Phone: [facility] Work Phone: Start: 05-02-2024 Non-patient / Non-visit MD Alessia Steven Work Phone: [facility] Work Phone: Start: 05-02-2024 MD Shantel painting Work Phone: [facility] Work Phone: Start: 05-01-2024 Non-patient / Non-visit MD Alessia Steven Work Phone: [facility] Work Phone: Start: 05-01-2024 MD Shantel painting Work Phone: [facility] Work Phone: Start: 04-30-2024 Non-patient / Non-visit MD Alessia Steven Work Phone: [facility] Work Phone: Start: 04-30-2024 MD Shantel painting Work Phone: [facility] Work Phone: Start: 04-30-2024 Non-patient / Non-visit MD Alessia Steven Work Phone: [facility] Work Phone: Start: 04-30-2024 MD Shantel painting Work Phone: [facility] Work Phone: Start: 04-29-2024 End: 04-29-2024 Patient encounter procedure MD Shantel Steven Work Phone: [facility] Physician [facility] Work Phone: Start: 04-29-2024 End: 04-29-2024 MD Shantel Steven Work Phone: [facility] Physician [facility] Work Phone: Start: 04-03-2024 End: 04-03-2024 ambulatory MD Shantel Steven Work Phone: [facility] Work Phone: Start: 04-03-2024 End: 04-03-2024 Patient encounter procedure MD Shantel Steven Work Phone: [facility] Physician [facility] Work Phone: Start: 04-03-2024 End: 04-03-2024 MD Shantel Steven Work Phone: [facility] Work Phone: Start: 04-01-2024 Non-patient / Non-visit MD Alessia Steven Work Phone: [facility] Work Phone: Start: 04-01-2024 MD Shantel painting Work Phone: [facility] Work Phone: Start: 03-31-2024 Non-patient / Non-visit MD Alessia Steven Work Phone: [facility] Work Phone: Start: 03-31-2024 MD Shantel painting Work Phone: [facility] Work Phone: Start: 03-28-2024 Non-patient / Non-visit MD Alessia Steven Work Phone: [facility] Work Phone: Start: 03-28-2024 MD Shantel painting Work Phone: [facility] Work Phone: Start: 03-27-2024 Non-patient / Non-visit MD Alessia Steven Work Phone: [facility] Work Phone: Start: 03-27-2024 MD Shantel painting Work Phone: [facility] Work Phone: Start: 03-26-2024 Non-patient / Non-visit MD Alessia Steven Work Phone: [facility] Work Phone: Start: 03-26-2024 MD Shantel painting Work Phone: [facility] Work Phone: Start: 03-25-2024 End: 03-25-2024 Patient encounter procedure MD Shantel Steven Work Phone: [facility] Physician [facility] Work Phone: Start: 03-25-2024 End: 03-25-2024 MD Shantel Steven Work Phone: [facility] Physician [facility] Work Phone: Start: 03-13-2024 End: 03-13-2024 ambulatory MD Shantel Steven Work Phone: [facility] C[facility] Work Phone: Start: 03-13-2024 End: 03-13-2024 Patient encounter procedure MD Shantel Steven Work Phone: [facility] Ctr-MRI [address] Work Phone: Start: 02-19-2024 ambulatory [facility] Facility :[facility] Start: 02-15-2024 End: 02-15-2024 ambulatory [facility] Work Phone: Start: 02-15-2024 End: 02-15-2024 Patient encounter procedure [facility] Physician [facility] Work Phone: Start: 01-29-2024 Non-patient / Non-visit [facility] Physician [facility] Work Phone: Start: 01-24-2024 Non-patient / Non-visit [facility] Physician [facility] Work Phone: Start: 01-22-2024 Non-patient / Non-visit [facility] Physician [facility] Work Phone: Start: 01-18-2024 End: 01-18-2024 Patient encounter procedure [facility] Physician [facility] Work Phone: Start: 01-15-2024 Non-patient / Non-visit [facility] Physician [facility] Work Phone: Start: 01-04-2024 Non-patient / Non-visit [facility] Physician Group-[facility] Work Phone: Start: 12-18-2023 End: 12-18-2023 ambulatory Shantel Tenisha Other [employer] Other Start: 12-18-2023 Telephone encounter Shantel Tenisha [facility] Start: 11-19-2023 End: 11-19-2023 ambulatory Shantel Tenisha Other [employer] Other Start: 11-19-2023 Telephone encounter Shantel Tenisha [facility] Start: 10-23-2023 End: 10-23-2023 ambulatory Jaleesa Vanessa Other [employer] Other Start: 10-23-2023 Office outpatient ne w 30 minutes Azghassan Kochs [facility] [place] Start: 10-22-2023 End: 10-22-2023 ambulatory Shantel Tenisha Other [employer] Other Start: 10-22-2023 Telephone encounter Shantel Tenisha [facility] Start: 10-18-2023 End: 10-18-2023 ambulatory Shantel Tenisha Other [employer] Other Start: 10-18-2023 Office outpatient vi sit 15 minutes Shantel Tenisha [facility] Start: 09-07-2023 End: 09-07-2023 ambulatory Shantel Tenisha Other [employer] Other Start: 09-07-2023 Telephone encounter Shantel Steven [facility] Start: 09-04-2023 End: 09-04-2023 ambulatory Shantel Steven Other [employer] Other Start: 09-04-2023 Office outpatient vi sit 25 minutes Shantel Steven [facility] Start: 08-23-2023 End: 08-23-2023 ambulatory Shantel Steven Other [employer] [employer] Other Start: 08-23-2023 Telephone encounter Shantel Steven [facility] Start: 07-23-2023 End: 07-23-2023 ambulatory Shantel Steven Other [employer] Other Start: 07-23-2023 Telephone encounter Shantel Steven [facility] Start: 07-17-2023 End: 07-17-2023 ambulatory Shantel Steven Other [employer] Other Start: 07-17-2023 Office outpatient vi sit 25 minutes Shantel Steven [facility] Start: 05-30-2023 End: 05-30-2023 ambulatory Shantel Steven Other [employer] Other Start: 05-30-2023 Telephone encounter Shantel Steven [facility] Start: 05-22-2023 End: 05-22-2023 ambulatory Shantel Steven Other [employer] Other Start: 05-22-2023 Telephone encounter Shantel Steven [facility] Start: 05-16-2023 End: 05-16-2023 ambulatory Shantel Steven Other [employer] Other Start: 05-16-2023 Telephone encounter Shantel Steven [facility] Start: 05-07-2023 End: 05-07-2023 ambulatory Shantel Steven Other [employer] Other Start: 05-07-2023 Telephone encounter Shantel Steven [facility] Start: 04-30-2023 End: 04-30-2023 ambulatory Shantel Steven Other [employer] Other Start: 04-30-2023 Office outpatient vi sit 25 minutes Shantel Steven [facility] Start: 04-25-2023 End: 04-25-2023 ambulatory Shantel Steven Other [employer] Other Start: 04-25-2023 Telephone encounter Shantel Steven [facility] Start: 04-12-2023 End: 04-12-2023 ambulatory Shantel Steven Other [employer] Other Start: 04-12-2023 Telephone encounter Shantel Steven [facility] Start: 03-09-2023 End: 03-09-2023 ambulatory Shantel Steven Other [employer] Other Start: 03-09-2023 Office outpatient vi sit 15 minutes Shantel Steven [facility] Start: 03-07-2023 End: 03-07-2023 ambulatory Shantel Steven Other [employer] Other Start: 03-07-2023 Telephone encounter Shantel Steven [facility] Start: 03-06-2023 End: 03-06-[address] SHANTEL STEVEN Facility:[facility] Start: 03-05-2023 End: 03-05-2023 ambulatory Shantel Steven Other [employer] Other Start: 03-05-2023 Telephone encounter Shantel Steven [facility] Start: 02-26-2023 End: 02-26-2023 ambulatory Shantel Steven Other [employer] Other Start: 02-26-2023 Telephone encounter Shantel Steven [facility] Start: 02-24-2023 End: 02-24-[address] SHANTEL STEVEN Facility:[facility] Start: 02-23-2023 End: 02-23-2023 ambulatory Shantel Steven Other [employer] Other Start: 02-23-2023 Telephone encounter Shantel Steven [facility] Start: 02-20-2023 End: 02-20-2023 ambulatory Shantel Steven Other [employer] Other Start: 02-20-2023 Transitional care luz cabral srvc 14 day discharge Shantel Steven [facility] Start: 02-16-2023 End: 02-16-2023 ambulatory Shantel Steven Other [employer] Other Start: 02-16-2023 Telephone encounter Shantel Steven [facility] Start: 02-13-2023 End: 02-14-[address] SHANTEL STEVEN Facility:[facility] Start: 02-02-2023 End: 02-02-2023 ambulatory Shantel Steven Other [employer] Other Start: 02-02-2023 Telephone encounter Shantel Steven [facility] Start: 01-16-2023 End: 01-17-[address] DOCTOR CARMONA Facility:[facility] Start: 01-05-2023 End: 01-05-2023 ambulatory BIN ROJAS Facility:[facility] Start: 01-01-2023 End: 01-02-2023 ambulatory ANALISA BRYANT Facility:[facility] Start: 11-29-2022 End: 11-29-2022 ambulatory Shantel Steven Other [employer] Other Start: 11-29-2022 Telephone encounter Shantel Tenisha [facility] Start: 11-27-2022 End: 11-27-2022 ambulatory Shantel Steven Other [employer] Other Start: 11-27-2022 Telephone encounter Shantel Steven [facility] Start: 11-24-2022 End: 11-24-2022 ambulatory Shantel Steven Other [employer] Other Start: 11-24-2022 Telephone encounter Shantel Steven [facility] Start: 11-06-2022 ambulatory YAMEL PANDYA Facility :[facility] Start: 09-15-2022 End: 09-16-[address] SHANTEL STEVEN Facility:[facility] Start: 08-04-2022 End: 08-04-2022 Patient encounter procedure Bin SORENSON [facility] Start: 05-02-2022 End: 05-02-[address] SHANTEL STEVEN Facility: Start: 08-25-2021 Office outpatient ne w 45 minutes Akbar Cui II [facility] Start: 08-09-2017 End: 08-12-2017 Ambulatory PROVIDER UNKNOWN Facility:[facility] Procedures Date Procedure Procedure Detail [...] NILL Cardiac catheterization [place] aejorden NILL Cholecystectomy Ibn NILL Colonoscopy Bin NILL Decompression laminectomy Lenore magallon NILL Esophagogastroduodenoscopy Vandana ichmonse NILL Excision of iliac lymph nodes Bin NILL Facetectomy of vertebra [place] aejorden NILL Foraminotomy Bin NILL History of operative procedure on shoulder Bin NILL History of sigmoid colectomy Bin NILL Total abdominal hyst erectomy with bilateral salpingo-oophorectomy Bin NILL Plan of Treatment Date Care Activity Detail Author Start: 06-08-2025 [facility] Start: 06-02-2025 [facility] Start: 06-02-2025 Urine culture [facility] Start: 03-24-2025 Patient referral [facility] Work Phone: Start: 12-10-2024 Patient referral [facility] Work Phone: Start: 10-20-2024 [facility] Start: 10-16-2024 Consultation [facility] Start: 10-16-2024 Hospital admission [facility] Start: 10-16-2024 Referral to in school suspension aide [facility] Start: 10-16-2024 Drainage of Bladder with Drainage Device, Via Natural or Artificial Opening Drainage of Bladder with Drainage Device, Via Natural or Artificial Opening [facility] Start: 10-16-2024 Performance of Cardi ac Pacing, Continuous Performance of Cardiac Pacing, Continuous [facility] Start: 10-01-2024 End: 10-01-2024 Patient encounter procedure [facility] Comment on above: Arrived Start: 09-30-2024 End: 09-30-2024 Patient encounter procedure 09/30/2024 1:00 PM EST Office Visit [facility] [place] [address] [place] [id number] Wanda Patel DO [address] [place], [place] [id number] [facility] Start: 09-04-2024 End: 09-04-2024 Patient encounter procedure 09/04/2024 1:20 PM EDT Office Visit [facility] [place] [address] [place] [address] Lizett Jacinto, SHAUN [address] [place], [place] [facility] [place] [address] Start: 07-22-2024 End: 07-22-2024 Patient encounter procedure 07/22/2024 1:10 PM EDT Office Visit [facility] [address] [place] [id number] Christel Chacon MD [address] [place] [address] Arrived [facility] Comment on above: Arrived Start: 07-17-2024 Bacteria identified in Urine by Culture [facility] Start: 07-17-2024 [facility] Start: 07-15-2024 End: 07-15-2024 Patient encounter procedure 07/15/2024 1:10 PM EDT Office Visit [facility] [address] [place] [address] Christel Chacon MD [address] [place] [address] [facility] Start: 2024 Influenza vaccination Influenza Vacc ine (#1) [facility] Start: 07-10-2024 End: 07-10-2024 Patient encounter procedure 07/10/2024 1:40 PM EDT Office Visit [facility] [place] [address] [facility] [place] [address] Lizett Jacinto, FITNESS MANAGER [address] [place], [place] Arrived [facility] [place] [address] Comment on above: Arrived Start: 06-25-2024 Patient referral [facility] Work Phone: Start: 06-16-2024 Patient referral [facility] Work Phone: Start: 05-07-2024 Patient referral [facility] Work Phone: Start: 05-04-2024 Blood Culture 1 Blood Culture 1 [facility] Start: 02-15-2024 Patient referral [facility] Work Phone: Comprehensive metabo lic 2000 panel - Serum or Plasma [facility] Comprehensive metabo lic 1999 panel - Serum or Plasma [facility] CT Abdomen and Pelvi s WO contrast [facility] Microalbumin [Mass/volume] in Urine [facility] Patient Education [facility] Work Phone: Patient referral [facility] Work Phone: Renal function 1999 panel - Serum or Plasma [facility] Renal function 1999 panel - Serum or Plasma [facility] Renal function 1999 panel - Serum or Plasma [facility] US Ax[facility] Immunizations Immunization Date Immunization Notes Care Provider Fa cility 01-18-2024 Pneumococcal Conjugate Vaccine, 20 valent [facility] 09-04-2023 influenza, high dose seasonal, preservative-free Shantel Steven Other [employer] Other 09-04-2023 influenza virus vaccine, unspecified formulation [facility] 02-04-2021 COVID-19 mRNA, Comirnaty (Pfizer) [facility] 01-21-2021 COVID-19 mRNA, Comirnaty (Pfizer) [facility] 10-09-2018 influenza virus vaccine, split virus (incl. purified surface antigen) Shantel Steven Other [employer] Other 10-09-2018 influenza virus vaccine, unspecified formulation [facility] NEGATED: Highlighted row has not occurred!10-17-2024 influenza, high dose seasonal, preservative-free Jorge Luis Zavala DO Work Phone: [facility] NEGATED: Highlighted row has not occurred!08-21-2019 influenza virus vaccine, split virus (incl. purified surface antigen) Shantel Steven Other [employer] Other Payers Date Payer Category Payer Medicare [id number] 2024 Self-pay [id number] 2023 Medicare HUMANA MEDICARE ADVANTAGE HU[employer]NA MEDICARE [id number] 2023-Present [id number] [place] [address] [id number] 2023 Medicare (Managed Care) [employer]NA EDICARE ADVANTAGE [id number] 1959 Medicare [id number] [id number] 1959 Self-pay [id number] 1946 Unknown [id number] 2.16.840.1.172481.3.579. 2.593 1946 Unknown [id number] 2.16.840.1.517397.3.579. 2.593 1946 Unknown [id number] 2.16.840.1.630624.3.579. 2.593 1946 Unknown [id number] 2.16.840.1.276398.3.579. 2.593 1946 Unknown [id number] 2.16.840.1.397864.3.579. 2.593 1946 Unknown [id number] 2.16.840.1.377813.3.579. 2.593 1946 Unknown [id number] 2.16.840.1.395056.3.579. 2.593 1946 Unknown [id number] 2.16.840.1.021962.3.579. 2.593 1946 Unknown [id number] 2.16.840.1.388352.3.579. 2.593 1946 Unknown [id number] 2.16.840.1.032265.3.579. 2.125 1946 Unknown [id number] 2.16.840.1.540945.3.579. 2.1259 1946 Unknown [id number] 2.16.840.1.467543.3.579. 2.1259 1946 Unknown [id number] 2.16.840.1.555942.3.579. 2.727 1946 Unknown [id number] 2.16.840.1.179824.3.579. 2.727 1946 Unknown [id number] 2.16.840.1.315737.3.579. 2.727 1946 Unknown [id number] 2.16.840.1.539528.3.579. 2.727 1946 Unknown [id number] 2.16.840.1.974013.3.579. 2.727 Unknown Unknown [id number] 2.16.840.1.573348.3.579. 2.531 Unknown [id number] 2.16.840.1.775662.3.579. 2.531 Unknown [id number] 2.16.840.1.153631.3.579. 2.531 Unknown [id number] 2.16.840.1.677850.3.579. 2.531 Unknown [id number] 2.16.840.1.184809.3.579. 2.531 Unknown [id number] 2.16.840.1.112166.3.579. 2.531 Unknown [id number] 2.16.840.1.291150.3.579. 2.531 Social History Date Type Detail Facility Start: 07-22-2024 End: 10-01-2024 Sex Assigned At [facility] [employer] Other Start: 08-04-2022 End: 10-25-2024 Tobacco smoking status Ex-smoker (finding) [facility] Tobacco smoking status Never [facility] [place] Start: 1945 Sex Assigned At Female [facility] History of tobacco use Current smoker [...] Start: 12-26-2024 End: 04-21-2025 Sex Female (finding) [facility] Start: 03-12-2025 End: 06-10-2025 Tobacco smoking status NHIS Never smoked tobacco (finding) [facility] Medical Equipment Procedure Code Equipment Code Equipment Origin al Text Equipment Identifier Dates Blood Sugar Diagnostic (True Metrix Glucose Test Strip) strip Start: 03-31-2024 Pen Needle, Diab etic (Comfort Ez Pen [place]) 33 gauge x 5/32 needle Start: 03-25-2024 Blood Sugar Diagnostic (True Metrix Glucose Test Strip) strip Start: 03-31-2024 End: 03-31-2024 Blood Sugar Diagnostic (True Metrix Glucose Test Strip) strip Start: 03-31-2024 Pen Needle, Diab etic (Comfort Ez Pen [place]) 33 gauge x 5/32 needle Start: 03-25-2024 Blood Sugar Diagnostic (True Metrix Glucose Test Strip) strip Start: 03-31-2024 End: 03-31-2024 Blood Sugar Diagnostic (True Metrix Glucose Test Strip) strip Start: 03-31-2024 Pen Needle, Diab etic (Comfort Ez Pen [place]) 33 gauge x 5/32 needle Start: 03-25-2024 Blood Sugar Diagnostic (True Metrix Glucose Test Strip) strip Start: 03-31-2024 End: 03-31-2024 Blood Sugar Diagnostic (True Metrix Glucose Test Strip) strip Start: 03-31-2024 Pen Needle, Diab etic (Comfort Ez Pen [place]) 33 gauge x 5/32 needle Start: 03-25-2024 Blood Sugar Diagnostic (True Metrix Glucose Test Strip) strip Start: 03-31-2024 End: 03-31-2024 Blood Sugar Diagnostic (True Metrix Glucose Test Strip) strip Start: 03-31-2024 Pen Needle, Diab etic (Comfort Ez Pen [place]) 33 gauge x 5/32 needle Start: 03-25-2024 Blood Sugar Diagnostic (True Metrix Glucose Test Strip) strip Start: 03-31-2024 End: 03-31-2024 Blood Sugar Diagnostic (True Metrix Glucose Test Strip) strip Start: 03-31-2024 Pen Needle, Diab etic (Comfort Ez Pen [place]) 33 gauge x 5/32 needle Start: 03-25-2024 Blood Sugar Diagnostic (True Metrix Glucose Test Strip) strip Start: 03-31-2024 End: 03-31-2024 Blood Sugar Diagnostic (True Metrix Glucose Test Strip) strip Start: 03-31-2024 Pen Needle, Diab etic (Comfort Ez Pen [place]) 33 gauge x 5/32 needle Start: 03-25-2024 Blood Sugar Diagnostic (True Metrix Glucose Test Strip) strip Start: 03-31-2024 End: 03-31-2024 Blood Sugar Diagnostic (True Metrix Glucose Test Strip) strip Start: 03-31-2024 Pen Needle, Diab etic (Comfort Ez Pen [place]) 33 gauge x 5/32 needle Start: 03-25-2024 Blood Sugar Diagnostic (True Metrix Glucose Test Strip) strip Start: 03-31-2024 End: 03-31-2024 Blood Sugar Diagnostic (True Metrix Glucose Test Strip) strip Start: 03-31-2024 Pen Needle, Diab etic (Comfort Ez Pen [place]) 33 gauge x 5/32 needle Start: 03-25-2024 Blood Sugar Diagnostic (True Metrix Glucose Test Strip) strip Start: 03-31-2024 End: 03-31-2024 Pen Needle, Diab etic (Comfort Ez Pen [place]) 33 gauge x 5/32 needle Start: 03-25-2024 Blood Sugar Diagnostic (True Metrix Glucose Test Strip) strip Start: 03-31-2024 End: 10-16-2024 Blood Sugar Diagnostic (True Metrix Glucose Test Strip) strip Start: 03-31-2024 End: 03-31-2024 Pen Needle, Diab etic (Comfort Ez Pen [place]) 33 gauge x 5/32 needle Start: 03-25-2024 Blood Sugar Diagnostic (True Metrix Glucose Test Strip) strip Start: 03-31-2024 End: 10-16-2024 Blood Sugar Diagnostic (True Metrix Glucose Test Strip) strip Start: 03-31-2024 End: 03-31-2024 Pen Needle, Diab etic (Comfort Ez Pen [place]) 33 gauge x 5/32 needle Start: 03-25-2024 Blood Sugar Diagnostic (True Metrix Glucose Test Strip) strip Start: 03-31-2024 End: 10-16-2024 Blood Sugar Diagnostic (True Metrix Glucose Test Strip) strip Start: 03-31-2024 End: 03-31-2024 Pen Needle, Diab etic (Comfort Ez Pen [place]) 33 gauge x 5/32 needle Start: 03-25-2024 Blood Sugar Diagnostic (True Metrix Glucose Test Strip) strip Start: 03-31-2024 End: 10-16-2024 Blood Sugar Diagnostic (True Metrix Glucose Test Strip) strip Start: 03-31-2024 End: 03-31-2024 Pen Needle, Diab etic (Comfort Ez Pen [place]) 33 gauge x 5/32 needle Start: 03-25-2024 Blood Sugar Diagnostic (True Metrix Glucose Test Strip) strip Start: 03-31-2024 End: 10-16-2024 Blood Sugar Diagnostic (True Metrix Glucose Test Strip) strip Start: 03-31-2024 End: 03-31-2024 Pen Needle, Diab etic (Comfort Ez Pen [place]) 33 gauge x 5/32 needle Start: 03-25-2024 Blood Sugar Diagnostic (True Metrix Glucose Test Strip) strip Start: 03-31-2024 End: 10-16-2024 Blood Sugar Diagnostic (True Metrix Glucose Test Strip) strip Start: 03-31-2024 End: 03-31-2024 Pen Needle, Diab etic (Comfort Ez Pen [place]) 33 gauge x 5/32 needle Start: 03-25-2024 Blood Sugar Diagnostic (True Metrix Glucose Test Strip) strip Start: 03-31-2024 End: 10-16-2024 Blood Sugar Diagnostic (True Metrix Glucose Test Strip) strip Start: 03-31-2024 End: 03-31-2024 Pen Needle, Diab etic (Comfort Ez Pen [place]) 33 gauge x 5/32 needle Start: 03-25-2024 Blood Sugar Diagnostic (True Metrix Glucose Test Strip) strip Start: 03-31-2024 End: 10-16-2024 Blood Sugar Diagnostic (True Metrix Glucose Test Strip) strip Start: 03-31-2024 End: 03-31-2024 Goals Date Patient Goal Desired Activity /State Functional Status Date Assessment Result Facility 11-04-2024 Functional Status N/A [facility] 10-20-2024 Functional status Patient at Baseline [facility] Work Phone: 08-04-2022 Functional Status N/A [facility] Mental Status Date Assessment Result Facility 10-20-2024 Cognitive function Cognitive Sta tus Patient at Baseline [facility] Work Phone: Clinical Notes 08-25-2021 to 04-22-2025 Note Date & Type Note Facility 04-22-2025 Note [place] Cardiology - [facility] Subjective Joe Call is a 79 y.o. year old female patient being seen for a follow up per Dr. Luna's request. Patient would like to discuss watchman. Patient Active Problem List Diagnosis Aortic valve disorder Benign essential hypertension Carotid artery stenosis Coronary atherosclerosis Diverticulitis of colon History of malignant neoplasm of breast Intestinal disaccharidase deficiency Lymphedema of left arm Morbid obesity ([facility]/HCC) Obstructive sleep apnea syndrome Paroxysmal supraventricular tachycardia Psoriasis Type 2 diabetes mellitus without complication ([facility]/HCC) Mixed hyperlipidemia Diastolic dysfunction Carotid bruit Chronic diarrhea Chronic low back pain Depressive disorder Diabetes mellitus (CMS/HCC) Diabetic neuropathy ([facility]/HCC) Exocrine pancreatic insufficiency Gastroesophageal reflux disease Hypertension Hypomagnesemia Hypothyroidism Stage 3 chronic kidney disease (CMS/HCC) Hyperlipidemia Atrial fibrillation (CMS/HCC) Paroxysmal atrial fibrillation (CMS/HCC) Abdominal swelling, generalized Anxiety Back pain with history of spinal surgery Cervical disc disease Chalazion of right eye Dyspnea Hordeolum externum (stye) Immunization due Lactose intolerance correction (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 insulin (CMS/HCC) Lumbar degenerative [...] neuropathy associated with type 2 diabetes mellitus ([facility]/HCC) Disability of walking Essential tremor LPRD (laryngopharyngeal [...] prior cardiac catheterizations. She has history of CT in the past and underwent balloon angioplasty (many years ago, prior to the stent era). 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 In December 2022 she was admitted to the [facility] with decompensated diastolic heart failure, she was treated with diuretic therapy. In February 2023 she was admitted to [facility] with dehydration secondary to acute gastroenteritis. She also had acute kidney injury in that setting. She has history of breast cancer more than 25 years ago s/p mastectomy, chemo and radiation therapy. She has lymphedema in the left arm. In the past she saw a general farmer for bleeding behind the eye . she [...] April 2024 she was admitted to the [facility] with increasing weakness and altered mental status. She also had acute renal insufficiency. She had UTI secondary to E. coli. She previously was admitted to the [facility] several times due to heart failure. She was readmitted in January 2025 to the [facility] with shortness of breath and treated with [...] Positive for shortness (more content not included)... [facility] 03-24-2025 Evaluation note Diagnosis Onset Date Resolution [...] use of acute June 04, 2025 9:49am [facility] Work Phone: 1(613) 429-300405-13-2025 Hospital Discharge instructionsAmbulatory Orders* Referral to Diabetes Management Time Frame: 03/24/25, Location: None Selected [facility] Work Phone: 1(690) 505-646804-29-2025 Evaluation note* Diagnosis Onset Date Resolution Status [...] bowel syndrome) acute April 21, 2025 2:10pm [facility] Work Phone: 1(221) 411-426104-29-2025 Evaluation note* Diagnosis Onset Date Resolution Status [...] x disease) acute May 21, 2025 10:52am [facility] Work Phone: 1(636) 103-366504-29-2025 Evaluation note* Diagnosis Onset Date Resolution Status [...] 2025 10:52am Dysuria acute June 02 12:10pm [facility] Work Phone: 1(894) 559-576104-21-2025 NoteCardiovascular Medicine [facility] SUBJECTIVE Patient is here today for follow-up after [facility] admission HPI 03/02/2025 Patient is here today [...] intake. 01/28/2025 She presented yesterday to the [facility] emergency room with worsening shortness of breath [...] better. She is going to see a in school suspension aide next week. Also she reports symptoms of [...] postchemotherapy and radiation She was recently in [facility] 10/16/2024, she presented with fatigue, lightheadedness and [...] her lisinopril due to (more content not included)...[facility]03-31-2025 Evaluation note* Diagnosis Onset Date Resolution [...] tract infection) acute March 24, 2025 1:51pm [facility] Work Phone: 1(243) 258-230303-31-2025 Evaluation note* Diagnosis Onset Date Resolution Status [...] bowel syndrome) acute April 21, 2025 2:10pm [facility] Work Phone: 1(868) 322-938203-19-2025 NoteCardiovascular Medicine [facility] SUBJECTIVE Patient is here today for follow-up after [facility] admission HPI 01/28/2025 She presented yesterday to the [facility] emergency room with worsening shortness of breath [...] better. She is going to see a in school suspension aide next week. Also she reports symptoms of [...] postchemotherapy and radiation She was recently in [facility] 10/16/2024, she presented with fatigue, lightheadedness and [...] confusion regarding her d (more content not included)...[facility]02-26-2025 Telephone encounter Note* Telephone Encounter - Christel Chacon MD - 01/07/2025 12:08 PM EST prn [facility] [id number] Miscellaneous Notes* Telephone Encounter - Christel Chacon MD - 01/07/2025 12:08 PM EST prn * Telephone Encounter - Jeanne Clayton - 01/07/2025 11:26 AM EST Called pt/spoke with spouse/he said she does not want to schedule with Dr Hurd/if she changes hermind she will call us back. documented [facility] encounter[facility] [id number] Telephone encounter Note* Telephone Encounter - Jeannebrodie Chacon - 01/07/2025 11:26 AM EST Called pt/spoke with spouse/he said she does not want to schedule with Dr Hurd/if she changes hermind she will call us back. [facility] [id number] Evaluation note* Diagnosis Onset Date Resolution Status [...] of acute March 24, 2025 1 :51pm [facility] Work Phone: [phone]) 639-647102-25-2025 Telephone encounter Note* Telephone Encounter - Jeanne Chacon - 01/06/2025 11:21 AM EST Left a message for pt to call Dr Chacon's office back to see if pt is planning on scheduling with Dr Hurd for sleep study. [facility] [id number] Miscellaneous Notes* Telephone Encounter - Jeanne Chacon - 01/06/2025 11:21 AM EST Left a message for pt to call Dr Chacon's office back to see if pt is planning on scheduling with Dr Hurd for sleep study. documented in this encounterBarnes-Jewish Saint Peters [id number] Evaluation note* Diagnosis Onset Date Resolution Status [...] x disease) acute March 10, 2025 11:03am [facility] Work Phone: 1(209) 281-127602-14-2025 Evaluation note* Diagnosis Onset Date Resolution Status [...] bowel syndrome) acute March 10, 2025 11:03am [facility] Work Phone: [phone]) 573-610701-28-2025 Evaluation note* Diagnosis Onset Date Resolution Status [...] kidney disease acute February 19, 2025 8:32am [facility] Work Phone: 1(995) 883-420401-21-2025 NoteCardiovascular Medicine [facility] SUBJECTIVE Patient is here today for follow-up. [...] postchemotherapy and radiation She was recently in [facility] 10/16/2024, she presented with fatigue, lightheadedness and [...] few months. Patient here for follow up [facility]. Her diuretic was switched again back [...] Oz of fluid a day per the in school suspension aide. Her most recent discharge on 07/25/24 she [...] has noticed occasional horsen (more content not included)...[facility]12-31-2024 Evaluation note* Diagnosis Onset Date Resolution [...] 2025 10:00am Diarrhea acute February 09 1:58pm [facility] Work Phone: [phone] 167-613912-24-2024 Hospital Discharge instructions Patient Education 11/04/2024 11:01:25 [...] Follow these instructions at home: Medicines Take [id number] and prescription medicines only as told by [...] provider. Document Revised: 07/20/2021 Document Reviewed: 07/20/2021 556 [employer] Patient Education 2023 CYPHER. Follow Up Care 10/20/2024 13:37:01 With:FRANCHESCA PERAZA, URL Address: [address] [place] [place] [address] Business (1) When:6 weeks [facility] 12-[facility]-2024 NotePatient Education Obstetrics and Gynecology [...] these instructions at home: Medicines ??? Take qjav-jij-[id number] and prescription medicines only as told by [...] Reviewed: 07/20/2021 Oly [facility] ? [facility] Evaluation note* Diagnosis Onset Date [...] of acute January 06 2 025 3:21pm [facility] Work Phone: [phone] Evaluation note* Diagnosis Onset Date Resolution Status [...] use of acute January 14, 2025 10:00am [facility] Work Phone: [phone]) 905-909112-20-2024 NoteCardiovascular Medicine [facility] SUBJECTIVE Patient is here today for hospital follow-up. She was in [facility] with bradycardia. HPI 10/31/2024 Joe Call is a 79 y.o. female here for follow-up. Patient has history of HFpEF, paroxysmal atrial fibrillation, hypertension, diabetes mellitus type 2, chronic kidney disease, remote history of breast cancer status postchemotherapy and radiation She was recently in [facility] 10/16/2024, she presented with fatigue, lightheadedness and [...] few months. Patient here for follow up [facility]. Her diuretic was switched again back [...] Oz of fluid a day per the in school suspension aide. Her most recent discharge on 07/25/24 she [...] pain Depressive disorder Diabe (more content not included)...[facility] 10-16-2024 Evaluation note* Diagnosis Onset Date [...] November 03 024 11:24am Lumbar spondylosis acute [facility] er 2023 11:24am Type 2 diabetes mellitus wit h diabetic chronic kidney disease acute November 03, 2024 11:24am CKD (chronic kidney disease) stage 3, GFR 30-59 ml/min acute [facility] er 2023 1:26pm Hyperlipidemia acute October 142023 [...] disease acu te December 09, 2024 1:24pm [facility] Work Phone: 1([phone]) 283-211111-27-2024 NoteCardiovascular Medicine [facility] SUBJECTIVE Chief Complaint Patient presents with [...] few months. Patient here for follow up [facility]. Her diuretic was switched again back [...] Oz of fluid a day per the in school suspension aide. Her most recent discharge on 07/25/24 she [...] deficiency Lymphedema of left arm Morbid obesity ([facility]/HCC) Obstructive sleep apnea syndrome Paroxysmal supraventricular tachycardia ([facility]/HCC) Psoriasis Type 2 diabetes mellitus without complication (CMS/HCC) Mixed hyperlipidemia Diastolic dysfunction Carotid bruit Chronic diarrhea Chronic low back pain Depressive disorder Diabetes mellitus (CMS/HCC) Diabetic neuropathy ([facility]/HCC) Exocrine pancreatic insufficiency Gastroesophageal reflux disease Hypertension Hypomagnesemia Hypothyroidism Stage 3 chronic kidney disease ([facility]/HCC) Hyperlipidemia Atrial fibrillation ([facility]/HCC) Paroxysmal atrial fibrillation ([facility]/HCC) Abdominal swelling, generalized Acute on chronic diastolic CHF (congestive heart failure) ([facility]) Anxiety Back pain with history of spinal surgery Cervical disc disease Chalazion of right eye Dyspnea Hordeolum externum (stye) Immunization due Lactose intolerance 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 ([facility]/HCC) Lumbar degenerative disc disease Lumbar spondylosis Lymph edema Macular degeneration Memory changes Osteoarthritis Secondary hyperparathyroidism ([facility]/HCC) Stress incontinence of urine Thrush of mouth and esophagus ([facility]/HCC) Urinary incontinence UTI (urinary tract infection) Yeast cystitis CARMELO (acute kidney injury) ([facility]/HCC) Tremor Acquired hammer toe of right foot Ataxia Balance disorder CHF (congestive heart failure) ([facility]/HCC) Dehydration Diabetic foot ([facility]/HCC) Diabetic peripheral neuropathy associated with type 2 diabetes mellitus ([facility]/HCC) Disability of walking Essential tremor LPRD (laryngopharyngeal reflux disease) Mass of right axilla Paresthesia Throat tightness Type 2 diabetes mellitus with hyperglycemia, with long-term current use of insulin ([facility]/HCC) Venous insufficiency (chronic) (peripheral) Debility Past Medical History: Diagnosis Date Atrial fibrillation (CMS/HCC) Cancer (CMS/HCC) Carotid artery stenosis Coronary (more content not included)...[facility] 10-08-2024 NotePatient here for 1 mo [...] tremors. All other systems reviewed and are negative.[facility] 10-01-2024 History of Present illness Narrative* [...] on chronic diastolic CHF (congestive heart failure) ([facility]) 05/20/2024 CARMELO (acute kidney injury) (CMS/[facility]) 05/20/2024 Anxiety 05/20/2024 Aortic valve disorder 08/20/2012 Back pain with history of spinal surgery 05/20/2024 Benign essential hypertension (CMS/[facility]) 04/02/2012 Carotid artery stenosis 07/20/2022 Carotid bruit 01/16/2023 Cervical disc disease 05/20/2024 Chalazion of right eye 05/20/2024 Chronic diarrhea 01/16/2023 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 Chronic low back pain 01/16/2023 Coronary atherosclerosis (CMS/HCC) 03/20/2012 Depressive disorder (CMS/[facility]) 01/16/2023 Diabetes mellitus (CMS/HCC) 07/03/2024 Diabetic foot (CMS/[facility]) 07/03/2024 Diabetic neuropathy (CMS/[facility]) 01/16/2023 Diabetic peripheral neuropathy associated with type 2 diabetes mellitus (CMS/[facility]) 07/03/2024 Diastolic dysfunction 09/05/2022 Disability of walking 07/03/2024 Diverticulitis of colon 03/20/2012 Dyspnea 05/20/2024 Exocrine pancreatic insufficiency ([facility]/HCC) 01/16/2023 Gastroesophageal reflux disease 01/16/2023 History of malignant neoplasm of breast 03/20/2012 Hordeolum externum (stye) 05/20/2024 Hyperlipidemia ([facility]) 07/03/2024 Hypertension ([facility]) 01/16/2023 Near syncope 07/03/2024 Hypomagnesemia 01/16/2023 Hypothyroidism ([facility]) 01/16/2023 Lumbar degenerative disc disease 05/20/2024 Lumbar spondylosis 05/20/2024 Lymph edema 05/20/2024 Lymphedema of left arm 03/20/2012 Macular degeneration 05/20/2024 Memory changes 05/20/2024 Morbid obesity ([facility]) 07/20/2022 Obstructive sleep apnea syndrome 03/20/2012 Paroxysmal atrial fibrillation ([facility]) 03/20/2012 Paroxysmal supraventricular tachycardia ([facility]) 03/26/2012 Psoriasis ([facility]) 03/20/2012 Secondary hyperparathyroidism ([facility]) 05/20/2024 Stage 3 chronic kidney disease (HCC) ([facility]) 01/16/2023 Hypertensive chronic kidney disease with stage 1 through stage 4 chronic kidney disease, or unspecified chronic kidney disease ([facility]) 07/03/2024 Thrush of mouth and esophagus ([facility]) 05/20/2024 Tremor 06/18/2024 Type 2 diabetes mellitus with hyperglycemia, with long-term current use of insulin ([facility]) 07/03/2024 Venous insufficiency (chronic) (peripheral) 07/03/2024 Essential tremor 07/08/2024 Balance disorder 07/08/2024 Ataxia 07/08/2024 Diabetic peripheral neuropathy ([facility]) 07/08/2024 Paresthesia 07/08/2024 Sensory ataxia 07/10/2024 Debility 07/10/2024 Weakness 07/10/2024 Paresthesias 07/10/2024 JED (obstructive sleep apnea) 07/22/2024 LPRD (laryngopharyngeal reflux disease) 07/22/2024 Throat tightness 07/22/2024 Resolved Ambulatory Problems Diagnosis Date Noted Acute pain of left shoulder 07/03/2024 Lactose intolerance 05/20/2024 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 ([facility]) 05/20/2024 Pharyngitis 07/03/2024 CKD (chronic kidney disease), stage IV ([facility]) 07/03/2024 Stress incontinence of urine 05/20/2024 Urinary incontinence 05/20/2024 UTI (urinary tract infection) 05/20/2024 Yeast cystitis 05/20/2024 Past Medical History: Diagnosis Date Anemia Breast cancer ([facility]) Coronary heart disease ([facility]) Diverticulosis GERD (gastroesophageal reflux disease) CT (myocardial infarction) ([facility]) Myocardial infarction ([facility]) Type II diabetes mellitus ([facility]) Past Surgical History: Procedure Laterality Date APPENDECTOMY [...] I will call pt. documented in this encounterBarnes-Jewish [facility] [id number] Telephone encounter Note* Telephone Encounter - Jeanne Chacon - 09/30/2024 11:01 AM EST Pt is scheduled with Dr Chacon 10/01/2024. [facility] [id number] Miscellaneous Notes* Telephone Encounter - Jeanne Chacon - 09/30/2024 11:01 AM EST Pt is scheduled with Dr Chacon 10/01/2024. * Telephone Encounter - Jeanne Chacon - 09/26/2024 8:50 AM EST Tried to call pt to schedule a follow up appt for labs, unable to leave a message. documented in this encounterBarnes-Jewish Saint [facility] [id number] Telephone encounter Note* Telephone Encounter - Jeanne Chacon - 09/26/2024 8:50 AM EST Tried to call pt to schedule a follow up appt for labs, unable to leave a message. [facility] [id number] NoteCardiovascular Medicine [facility] SUBJECTIVE Chief Complaint Patient presents [...] few months. Patient here for follow up [facility]. Her diuretic was switched again back [...] Oz of fluid a day per the in school suspension aide. Her most recent discharge on 07/25/24 she [...] Hordeolum externum (stye) Immunization due Lactose intolerance correction (current) use of insulin ([facility]/HCC) Lumbar degenerative disc disease Lumbar spondylosis Lymph edema Macular degeneration Memory changes Osteoarthritis Secondary hyperparathyroidism (CMS/HCC) Stress incontinence of urine Thrush of mouth and esophagus (CMS/HCC) Urinary incontinence UTI (urinary tract infection) Yeast cystitis CARMELO (acute kidney injury) ([facility]/HCC) Tremor Acquired hammer toe of right foot Ataxia Balance disorder CHF (congestive heart failure) (CMS/HCC) Dehydration Diabetic foot ([facility]/HCC) Diabetic peripheral neuropathy associated with type 2 diabetes mellitus ([facility]) Disability of walking Essential tremor LPRD (laryngopharyngeal reflux disease) Mass of right axilla Paresthesia Throat tightness Type 2 diabetes mellitus with hyperglycemia, with long-term current use of insulin ([facility]) Venous insufficiency (chronic) (peripheral) Debility Past Medical History: Diagnosis Date Atrial fibrillation ([facility]/HCC) Cancer ([facility]) Carotid artery stenosis Coronary artery disease Diabetes mellitus ([facility]) GERD (gastroesophageal reflux disease) Hypertension Sleep apnea Family History Problem Relation Name Age of Onset Coronary artery disease Other Diabetes Other Polycystic kidney disease Other Social History Tobacco Use Smoking status: Former Types: Ci (more content not included)...[facility] 09-03-2024 NotePatient here for 2 week follow up. Had echo last week and labs drawn this afternoon. Says she's feeling better. Still denies chest pain, palpitations, and bleeding on Xarelto. Review of Systems Cardiovascular: Positive for leg swelling (feet). Respiratory: Positive for shortness of breath. Musculoskeletal: Positive for muscle weakness. Neurological: Positive for tremors. All other systems reviewed and are negative.[facility] 08-20-2024 NoteCardiovascular Medicine [facility] SUBJECTIVE Chief Complaint Patient presents with [...] few months. Patient here for follow up [facility]. Her diuretic was switched again back [...] Oz of fluid a day per the in school suspension aide. 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 ([facility]/HCC) Lumbar degenerative disc disease Lumbar spondylosis Lymph edema Macular degeneration Memory changes Osteoarthritis Secondary hyperparathyroidism ([facility]/HCC) Stress incontinence of urine Thrush of mouth and esophagus ([facility]/HCC) Urinary incontinence UTI (urinary tract infection) Yeast cystitis CARMELO (acute kidney injury) ([facility]/HCC) Tremor Acquired hammer toe of right foot Ataxia Balance disorder CHF (congestive heart failure) ([facility]) Dehydration Diabetic foot ([facility]) Diabetic peripheral neuropathy associated with type 2 diabetes mellitus ([facility]) Disability of walking Essential tremor LPRD (laryngopharyngeal reflux disease) Mass of right axilla Paresthesia Throat tightness Type 2 diabetes mellitus with hyperglycemia, with long-term current use of insulin ([facility]) Venous insufficiency (chronic) (peripheral) Debility Past Medical History: Diagnosis Date Atrial fibrillation ([facility]/HCC) Cancer ([facility]) Carotid artery stenosis Coronary artery disease Diabetes mellitus ([facility]) GERD (gastroesophageal reflux disease) Hypertension [...] All other systems reviewed (more content not included)...[facility] NotePatient here for follow up [facility]. Her diuretic was switched again back [...] tremors. All other systems reviewed and are negative.[facility] 07-22-2024 History of Present illness Narrative* [...] on chronic diastolic CHF (congestive heart failure) ([facility]) 05/20/2024 CARMELO (acute kidney injury) (CMS/[facility]) 05/20/2024 Anxiety 05/20/2024 Aortic valve disorder 08/20/2012 Back pain with history of spinal surgery 05/20/2024 Benign essential hypertension (CMS/[facility]) 04/02/2012 Carotid artery stenosis 07/20/2022 Carotid bruit 01/16/2023 Cervical disc disease 05/20/2024 Chalazion of right eye 05/20/2024 Chronic diarrhea 01/16/2023 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 Chronic low back pain 01/16/2023 Coronary atherosclerosis (CMS/[facility]) 03/20/2012 Depressive disorder (CMS/[facility]) 01/16/2023 Diabetes mellitus ([facility]) 07/03/2024 Diabetic foot ([facility]) 07/03/2024 Diabetic neuropathy ([facility]) 01/16/2023 Diabetic peripheral neuropathy associated with type 2 diabetes mellitus ([facility]) 07/03/2024 Diastolic dysfunction 09/05/2022 Disability of walking 07/03/2024 Diverticulitis of colon 03/20/2012 Dyspnea 05/20/2024 Exocrine pancreatic insufficiency ([facility]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) 01/16/2023 Gastroesophageal reflux disease 01/16/2023 History of malignant neoplasm of breast 03/20/2012 Hordeolum externum (stye) 05/20/2024 Hyperlipidemia ([facility]) 07/03/2024 Hypertension ([facility]) 01/16/2023 Near syncope 07/03/2024 Hypomagnesemia 01/16/2023 Hypothyroidism ([facility]) 01/16/2023 Lumbar degenerative disc disease 05/20/2024 Lumbar spondylosis 05/20/2024 Lymph edema 05/20/2024 Lymphedema of left arm 03/20/2012 Macular degeneration 05/20/2024 Memory changes 05/20/2024 Morbid obesity ([facility]) 07/20/2022 Obstructive sleep apnea syndrome 03/20/2012 Paroxysmal atrial fibrillation ([facility]) 03/20/2012 Paroxysmal supraventricular tachycardia ([facility]) 03/26/2012 Psoriasis ([facility]) 03/20/2012 Secondary hyperparathyroidism ([facility]) 05/20/2024 Stage 3 chronic kidney disease (HCC) ([facility]) 01/16/2023 Hypertensive chronic kidney disease with stage 1 through stage 4 chronic kidney disease, or unspecified chronic kidney disease ([facility]) 07/03/2024 Thrush of mouth and esophagus ([facility]) 05/20/2024 Tremor 06/18/2024 Type 2 diabetes mellitus with hyperglycemia, with long-term current use of insulin ([facility]) 07/03/2024 Venous insufficiency (chronic) (peripheral) 07/03/2024 Essential tremor 07/08/2024 Balance disorder 07/08/2024 Ataxia 07/08/2024 Diabetic peripheral neuropathy ([facility]/HCC) 07/08/2024 Paresthesia 07/08/2024 Sensory ataxia 07/10/2024 Debility 07/10/2024 Weakness 07/10/2024 Paresthesias 07/10/2024 Resolved Ambulatory Problems Diagnosis Date Noted Acute pain of left shoulder 07/03/2024 Lactose intolerance 05/20/2024 correction (current) use of insulin [place] 05/20/2024 Pharyngitis 07/03/2024 CKD (chronic kidney disease), stage IV ([facility] 07/03/2024 Stress incontinence of urine 05/20/2024 Urinary incontinence 05/20/2024 UTI (urinary tract infection) 05/20/2024 Yeast cystitis 05/20/2024 Past Medical History: Diagnosis Date Anemia Breast cancer [place] Coronary heart disease ([facility] Diverticulosis GERD (gastroesophageal reflux disease) CT (myocardial infarction) [place] Myocardial infarction [place] Type II diabetes mellitus ([facility] Past Surgical History: Procedure Laterality Date APPENDECTOMY [...] contribute to throat fullness documented in this encounterBarnes-Jewish Saint Peters [id number] History of Present illness Narrative* Lizett Jacinto [...] HOSP F/U after being seen IP at [facility] for worsening SOB along with lower extremity edema and lower abdominal wall edema after being taken off of Lasix. Was discharged with instructions to f/u with PCP, Cardiologies, [facility]. States that she was dx with CHF [...] of left shoulder 07/03/2024 Anemia Breast cancer ([facility]) CKD (chronic kidney disease), stage IV ([facility]) 07/03/2024 Coronary heart disease ([facility]) Diverticulosis GERD (gastroesophageal reflux disease) Lactose intolerance 05/20/2024 correction (current) use of insulin ([facility]) 05/20/2024 CT (myocardial infarction) ([facility]) Myocardial infarction ([facility]) Pharyngitis 07/03/2024 Type II diabetes mellitus ([facility]) Urinary incontinence 05/20/2024 Yeast cystitis [...] as we have not seen her in [facility]. She never followed up. Dr. [...] would need to be done through the forging machine operator. The patient does have benzodiazepines [...] modifying techniques such as weighted silverware, utensil banking services advisor and/or cups with lids on them. . [...] and the medication options Weighted silverware Utensil banking services advisor to aid with writing and putting on [...] to clinic: 2 months documented in this encounterBarnes-Jewish Saint Peters [id number] NoteUT Cardiology - [facility] Subjective Joe Call is a 78 y.o. year old female patient being seen for 1 mo follow up acute on chronic diastolic heart failure, CAD, and CARMELO. She's presented to [facility] ED several times over the past [...] Hordeolum externum (stye) Immunization due Lactose intolerance correction (current) use of insulin (CMS/HCC) Lumbar degenerative [...] prior cardiac catheterizations. She has history of CT in the past and underwent balloon angioplasty (many years ago, prior to the stent era). 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 In December 2022 she was admitted to the [facility] with decompensated diastolic heart failure, she was treated with diuretic therapy. In February 2023 she was admitted to [facility] with dehydration secondary to acute gastroenteritis. She also had acute kidney injury in that setting. She has history of breast cancer more than 25 years ago s/p mastectomy, chemo and radiation therapy. She has lymphedema in the left arm. In the past she saw a general farmer for bleeding behind the eye . she [...] April 2024 she was admitted to the [facility] with increasing weakness and altered mental status. She also had acute renal insufficiency. She had UTI secondary to E. coli. She was admitted again to the [facility] on 06/09/2020 for with acute [...] Appearance: She is well-develo (more content not included)...[facility]04-05-[facility]24 Hospital Discharge instructionsAmbulatory Orders * Referral to Urology Time Frame: 02/15/24, Location: None [facility] Work Phone: [phone]) 961-496201-08-2024 Evaluation note* Encounter Date Diagnosis Assessment Notes Treatment Notes Treatment Clinical Notes Nov, Lumbar degenerative disc disease (ICD-10 - M51.36) [employer] Other 12-12-2023 Evaluation note* Encounter Date Diagnosis [...] will check vitamin B12 level next visit [employer] Other 12-11-2023 Evaluation note* Encounter Date Diagnosis Assessment Notes Treatment Notes Treatment Clinical Notes Oct, Lumbar degenerative disc disease (ICD-10 - M51.36) [employer] Other 12-07-2023 Evaluation note* Encounter Date Diagnosis Assessment Notes Treatment Notes Treatment Clinical Notes Oct, Bronchitis (ICD-10 - J40) Finish meds. No acute need for antibiotic at this time Oct, Diabetes mellitus with chronic kidney disease (ICD-10 - E11.22) Due for labs, followup w Dr. Mcconnell Oct, Lumbar degenerative disc disease (ICD-10 - M51.36) Pt will contact neurosurgery. [employer] Other 10-27-2023 Evaluation note* Encounter Date Diagnosis Assessment Notes Treatment Notes Treatment Clinical Notes Aug, Chronic kidney disease, stage 4 (severe) (ICD-10 - N18.4) [employer] Other 10-24-2023 Evaluation note* Encounter Date Diagnosis [...] (ICD-10 - M51.36) Pt requests referral to [facility]. Reviewed OARRS report. Aug, Stress incontinence of urine (ICD-10 - N39.3) R/o infection. Discussed could be related to her diabetes med as well. [employer] Other 10-12-2023 Evaluation note* Encounter Date Diagnosis Assessment Notes Treatment Notes Treatment Clinical Notes Aug, Lumbar degenerative disc disease (ICD-10 - M51.36) [employer] Other 09-11-2023 Evaluation note* Encounter Date Diagnosis Assessment Notes Treatment Notes Treatment Clinical Notes Jul, Lumbar degenerative disc disease (ICD-10 - M51.36) [employer] Other 09-05-2023 Evaluation note* Encounter Date Diagnosis [...] refill. Oarrs reviewed. No med changes needed. [employer] Other 07-05-2023 Evaluation note* Encounter Date Diagnosis Assessment Notes Treatment Notes Treatment Clinical Notes May, C. difficile colitis (ICD-10 - A04.72) [employer] Other 06-19-2023 Evaluation note* Encounter Date Diagnosis Assessment Notes Treatment Notes Treatment Clinical Notes Apr, Skin candidiasis (ICD-10 - B37.2) Discussed this is related to her hyperglycemia. Will treat w nystatin, but needs improvement in diet and glucose readings. Apr, Type 2 diabetes mellitus with hyperglycemia, unspecified whether residential insulin use (ICD-10 - E11.65) Pt agrees to see Dr Mcconnell again. Recently sent to ER for glucose of 608. Apr, Tremor of both hands (ICD-10 - R25.1) Referral to Dr. Lopez Apr, Memory changes (ICD- 10 - R41.3) Referral to Dr. Lopez Apr, Gastroesophageal reflux disease without esophagitis (ICD-10 - K21.9) Improved on carafate w PPI. [employer] Other 06-01-2023 Evaluation note* Encounter Date Diagnosis Assessment Notes Treatment Notes Treatment Clinical Notes Apr, Gastroesophageal ref lux disease without esophagitis (ICD-10 - K21.9) [employer] Other 04-28-2023 Evaluation note* Encounter Date Diagnosis [...] get lab ordered on 02/20 today Feb, correction (current) use of insulin (ICD-10 - Z79.4) [employer] Other 04-26-2023 Evaluation note* Encounter Date Diagnosis Assessment Notes Treatment Notes Treatment Clinical Notes Feb, C. difficile colitis (ICD-10 - A04.72) [employer] Other 04-17-2023 Evaluation note* Encounter Date Diagnosis Assessment Notes Treatment Notes Treatment Clinical Notes Feb, Gastroesophageal ref lux disease without esophagitis (ICD-10 - K21.9) [employer] Other 04-14-2023 Evaluation note* Encounter Date Diagnosis Assessment Notes Treatment Notes Treatment Clinical Notes Feb, Chronic diarrhea (ICD-10 - K52.9) [employer] Other 04-11-2023 Evaluation note* Encounter Date Diagnosis [...] it really overall has not been helpful. [employer] Other 01-13-2023 Evaluation note* Encounter Date Diagnosis Assessment Notes Treatment Notes Treatment Clinical Notes Nov, Type 2 diabetes mellitus with hyperglycemia, unspecified whether residential insulin use (ICD-10 - E11.65) [employer] Other 10-14-2021 Evaluation note* Encounter Date Diagnosis [...] training 6. Follow up in 3 months. [employer] Other Evaluation + Plan note No data available for this section [facility] Evaluation + Plan note Future Appointments Appointment Date:11/06/2024 11:00:00 AM Scheduled Provider: [facility] Appointment Type:URO Nurse Visit Appointment Date:12/08/2024 11:40:00 AM Scheduled Provider:FRANCHESCA PERAZA PA-C Location:[facility] Appointment Type:URO Office Visit Diagnostic Tests Pending * Renal Function Panel 11/04/24 [facility] evaluation + Plan note Future Appointments Appointment Date:12/08/2024 11:40:00 AM Scheduled Provider:FRANCHESCA PERAZA PA-C Location:[facility] Appointment Type:URO Office Visit Appointment Date:12/18/2024 11:20:00 AM Scheduled Provider:FRANCHESCA PERAZA PA-C Location:[facility] Appointment Type:URO Complex Office Visit [facility] evaluation + Plan note Future Appointments Appointment Date:12/18/2024 11:20:00 AM Scheduled Provider:FRANCHESCA PERAZA PA-C Location:[facility] Appointment Type:URO Complex Office Visit [facility] evaluation noteNo InformationNortP4RC Other Evaluation noteNoMet[facility] Other Evaluation noteNortP4RC Other Evaluation note* Diagnosis Onset Date Resolution Status Chalazion of right eye acute Immunization due acute Urinary incontinence acute [facility] Work Phone: evaluation note* Diagnosis Onset Date Resolution Status Chalazion of right eye acute Immunization due acute Urinary incontinence acute Diabetes mellitus with hyperglycemia acute Hypertension acute Hypothyroidism acute Lumbar spondylosis acute Secondary hyperparathyroidism acute [facility] Work Phone: evaluation note* Diagnosis Onset Date [...] acute Thrush of mouth and esophagus acute [facility] Work Phone: evaluation note* Diagnosis Onset Date [...] IV acute UTI (urinary tract infection) acute [facility] Work Phone: evaluation note* Diagnosis Onset Date [...] acute Thrush of mouth and esophagus acute [id number] acute Secondary hyperparathyroidism acute [facility] Work Phone: Evaluation note* Diagnosis Onset Date [...] acute Thrush of mouth and esophagus acute [id number] acute CKD (chronic kidney disease) stage 3, GFR 30-59 ml/min acute Hyperlipidemia acute [id number] acute Secondary hyperparathyroidism acute Type 2 diabetes mellitus wit h diabetic chronic kidney disease acute Tremor acute [facility] Work Phone: Evaluation note* Diagnosis Onset Date [...] acute Thrush of mouth and esophagus acute [id number] acute CKD (chronic kidney disease) stage 3, GFR 30-59 ml/min acute Hyperlipidemia acute DAY-[id number] acute Secondary hyperparathyroidism acute Type 2 diabetes mellitus wit h diabetic chronic kidney disease acute Acute on chronic diastolic C HF (congestive heart failure) acute [id number] acute Tremor acute ISE-[id number] acute [facility] Work Phone: Evaluation note* Diagnosis Onset [...] acute Thrush of mouth and esophagus acute [id number] acute CKD (chronic kidney disease) stage 3, GFR 30-59 ml/min acute Hyperlipidemia acute SXO-ZRHP-[id number] acute Secondary hyperparathyroidism acute Type 2 diabetes mellitus wit h diabetic chronic kidney disease acute Acute on chronic diastolic C HF (congestive heart failure) acute [id number] acute Tremor acute WCP-ZPPL-[id number] acute Mass of right axilla acute [facility] Work Phone: Evaluation note* Diagnosis Onset Date [...] acute Thrush of mouth and esophagus acute [id number]-[id number] acute CKD (chronic kidney disease) stage 3, GFR 30-59 ml/min acute Hyperlipidemia acute [id number] acute Secondary hyperparathyroidism acute Type 2 diabetes mellitus wit h diabetic chronic kidney disease acute Acute on chronic diastolic C HF (congestive heart failure) acute [id number] acute Tremor acute WUB-[id number] acute Mass of right axilla acute CHF (congestive heart failure) acute Dehydration acute [id number]-UKLH-[id number] acute AZD-[id number] acute [facility] Work Phone: Evaluation note* Diagnosis Onset [...] acute Thrush of mouth and esophagus acute [id number]-[id number] acute CKD (chronic kidney disease) stage 3, GFR 30-59 ml/min acute Hyperlipidemia acute [id number]-[id number] acute Secondary hyperparathyroidism acute Type 2 diabetes mellitus wit h diabetic chronic kidney disease acute Acute on chronic diastolic C HF (congestive heart failure) acute SKI-[id number] acute Tremor acute YJN-KDIU-[id number] acute Back pain with history of spinal surgery acute Cervical disc disease acute CKD (chronic kidney disease), stage IV acute Mass of right axilla acute CHF (congestive heart failure) acute Dehydration acute [id number] acute UVO-[id number] acute Dysuria acute [facility] Work Phone: Evaluation note* Diagnosis Onset Date Resolution Status Lumbar degenerative disc disease acute Thrush of mouth and esophagus acute ICK-[id number] acute CKD (chronic kidney disease) stage 3, GFR 30-59 ml/min acute Hyperlipidemia acute [id number]-[id number] acute Secondary hyperparathyroidism acute Type 2 diabetes mellitus wit h diabetic chronic kidney disease acute Acute on chronic diastolic C HF (congestive heart failure) acute SJD-[id number] acute Tremor acute RWA-MGNI-45050215 acute Back pain with history of spinal surgery acute Cervical disc disease acute CKD (chronic kidney disease), stage IV acute Mass of right axilla acute CHF (congestive heart failure) acute Dehydration acute [id number]-[id number] acute AOP-[id number] acute Dysuria acute [facility] Work Phone: Evaluation note* Diagnosis JED (obstructive sleep apnea)- Primary Obstructive sleep apnea (adult) (pediatric) Hypothyroidism (acquired) ([facility]) Unspecified hypothyroidism documented in this encounter [facility] HealthcareEvaluation note* Diagnosis Essential tremor- Primary Diabetic polyneuropathy associated with type 2 diabetes mellitus ([facility]) Balance disorder Sensory ataxia Lack of coordination Debility Unspecified debility Weakness Other malaise and fatigue Paresthesias Disturbance of skin sensation documented in this encounter [facility] HealthcareEvaluation note* Diagnosis JED (obstructive sleep apnea)- Primary Obstructive sleep apnea (adult) (pediatric) LPRD (laryngopharyngeal reflux disease) Acute laryngitis, without mention of obstruction Throat tightness documented in this encounter [facility] HealthcareHistory general Narrative - Reported* Type [...] History COLONOSCOPY 04/10/2019 Hospitalization History See above [employer] Other Hispevc general Narrative - Reported* Type Description Date [...] History COLONOSCOPY 04/10/2019 Hospitalization History See above [employer] Other History general Narrative - [facility]orted[facility] [facility] Other History general Narrative - ReportedNoMet[facility] Other History general Narrative - Reported* Type [...] GERD 2022 Hospitalization History DIABETES ISSUES 2022 [employer] Other Hospital Discharge instructions No data available for this section [facility] Discharge instructionsAmbulatory Orders* Referral to Neurology Time Frame: 06/16/24, Location: None [facility] Work Phone: Hospital Discharge instructionsAmbulatory Orders* Referral to ENT Time Frame: 06/25/24, Location: None [facility] Work Phone: Hospital Discharge instructions Additional Instructions Follow-up with your primary care doctor as you might need medication adjustments to manage your high blood sugar [facility] develop [facility] Work [facility]: Progress note No data available for this section [facility] [employer] for referral (narrative)No reason for referral information [facility]: [employer] for visit Narrative* Consultation (Routine) - Closed Specialty Diagnoses / Procedures Referred By Renetta t Referred To Contact Neurology Diagnoses Tremor, unspecified Procedures SD OFFICE/OUTPATIENT NEW LOW MDM 30 MINUTES Shantel Steven MD [address] [place] [address] Gio Choe MD [address] [place] [address] Referral ID Status Reason Start Date Expiration Date V isits Requested Visits Authorized [id number] Closed Consult and Treat 06/27/2024 12/24/2024 1 [...] 4 (severe) (N18.4) Referral Organization [facility] helene Referring Provider First Name Shantel Referring Provider Last Name Tenisha Referring Provider Specialty [facility] Follica Referred Organization [facility] Nephrology Referred Provider Cherie Rapp Referred Address [address] [place], [place],[address] Referred Provider Specialty Nephrology Referral Priority Routine General Notes Mariela Kingston 11:35:41 AM >received today, sent P2P Reason *FU 09/13 lumbar p ain Diagnosis 1 Lumbar degenerative disc disease (M51.36) Referral Organization [facility] helene Referring Provider First Name Shantel Referring Provider Last Name Tenisha Referring Provider Specialty [facility] Referred Organization [facility] Referred Provider Terell Soliz Referred Address [address] [place], [place],[address] Referred Provider Specialty [facility] Referral Priority Routine General Notes Mariela Kingston 03:09:25 PM >received today, waiting for notes to be locked Mariela Kingston 09/06/2023 10:08:29 AM >notes locked, referral faxed Clinical Notes F: [id number] Reason Poorly controlled di abetes Diagnosis 1 Type 2 diabetes maranda itus with hyperglycemia, unspecified whether residential insulin use (E11.65) Referral Organization [facility] [employer] helene Referring Provider First Name Shantel Referring Provider Last Name Tenisha Referring Provider Specialty [facility] Referred Organization Unknown Facility Referred Provider Joshua Mcconnell Referred Provider Specialty Internal Med icine Referral Priority Routine Reason tremor and memory lo ss - family history of dementia Diagnosis 1 Tremor of both hands (R25.1) Referral Organization [facility] [employer] helene Referring Provider First Name Shantel Referring Provider Last Name Tenisha Referring Provider Specialty [facility] Referred Organization Unknown Facility Referred Provider Emery [...] disc disease Thrush of mouth and esophagus [id number] Secondary hyperparathyroidism Chief Complaint medication review Amb [...] disc disease Thrush of mouth and esophagus [id number]-[id number] CKD (chronic kidney disease) stage 3, GFR 30-59 ml/min Hyperlipidemia [id number]-[id number] Secondary hyperparathyroidism Type 2 diabetes mellitus with [...] disc disease Thrush of mouth and esophagus RGE-[id number]-[id number] CKD (chronic kidney disease) stage 3, GFR 30-59 ml/min Hyperlipidemia WYI-CNWG-[id number] 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 Acute on chronic diastolic CHF (congestive heart failure) [id number]-[id number] Tremor [id number] Chief Complaint difficulty swallowin g Amb Documentation [...] disc disease Thrush of mouth and esophagus [id number]-[id number] CKD (chronic kidney disease) stage 3, GFR 30-59 ml/min Hyperlipidemia [id number] 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 Acute on chronic diastolic CHF (congestive heart failure) [id number] Tremor [id number]-[id number] Mass of right axilla Chief Complaint difficulty [...] disc disease Thrush of mouth and esophagus [id number]-[id number] CKD (chronic kidney disease) stage 3, GFR 30-59 ml/min Hyperlipidemia [id number]-[id number] 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 Acute on chronic diastolic CHF (congestive heart failure) [id number]-31367686 Tremor [id number]-[id number]-[id number] Mass of right axilla Chief Complaint difficulty [...] disc disease Thrush of mouth and esophagus [id number]-[id number]-[id number] CKD (chronic kidney disease) stage 3, GFR 30-59 ml/min Hyperlipidemia LLU-MVQY-29737146 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 Acute on chronic diastolic CHF (congestive heart failure) [id number]-[id number] Tremor [id number]-YDEO-[id number] Mass of right axilla CHF (congestive heart failure) Dehydration [id number] KBO-FYQO-[id number] Chief Complaint difficulty swallowin g Amb Documentation [...] disc disease Thrush of mouth and esophagus [id number] CKD (chronic kidney disease) stage 3, GFR 30-59 ml/min Hyperlipidemia [id number]-LCCR-10414261 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 Acute on chronic diastolic CHF (congestive heart failure) [id number] Tremor [id number]-[id number]-82095649 Back pain with history of spinal surgery Cervical disc disease CKD (chronic kidney disease), stage IV Mass of right axilla CHF (congestive heart failure) Dehydration [id number]-[id number] SQA-[id number]-[id number] Dysuria Chief Complaint throat problem SOB RENAL CKD 4 [facility] follow up 3 month f/u Kidney injury, high BP R30.0 UA Amb Documentation TB f/u:Pulmonary Adema Reason for Visit Lumbar degenerative disc disease Thrush of mouth and esophagus [id number] CKD (chronic kidney disease) stage 3, GFR 30-59 ml/min Hyperlipidemia WKI-WHKP-41769380 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 Acute on chronic diastolic CHF (congestive heart failure) SLD-[id number]-[id number] Tremor UGA-ZMRS-15067645 Back pain with history of spinal surgery Cervical disc disease CKD (chronic kidney disease), stage IV Mass of right axilla CHF (congestive heart failure) Dehydration NCN-[id number] Dysuria Chief Complaint Admit Date gen weakness [...] 025 12:52pm Gastroesophageal reflux disease (GERD) F [facility] 2024 3:21pm [facility] ER:Abd Pain/Chronic Pain January 14, 2025 [...] 2024 12:52pm GERD (gastroesophageal reflux disease) F [facility] 2024 12:52pm Lumbar degenerative disc disease uar y 2024 12:52pm Seborrhea capitis in adult December 12:52pm Type 2 diabetes mellitus wit h diabetic chronic kidney disease December 26, 2024 12:52pm Acute on chronic diastolic CHF (congesti ve heart failure) January 06, 2025 3:21pm CKD (chronic kidney disease), stage IV F [facility] 2024 3:21pm GERD (gastroesophageal reflux disease) F [facility] 2024 3:21pm Lumbar degenerative disc disease ua2024 [...] CKD (chronic kidney disease), stage IV F [facility] 2024 3:21pm GERD (gastroesophageal reflux disease) F [facility] 2024 3:21pm Lumbar degenerative disc disease Februar y 2024 3:21pm Type 2 diabetes mellitus wit h hyperglycemia, with long-term current use of January 06, 2025 3:21pm Acute on chronic diastolic CHF (congesti ve heart failure) January 14, 2025 10:00am C. difficile diarrhea January 14, 2025 10 :00am GERD (gastroesophageal reflux disease) M [facility] 2024 10:00am Type 2 diabetes mellitus wit h hyperglycemia, with long-term current use of January 14, 2025 10:00am Chief Complaint Admit Date RENAL HOSP F/U November 11, 2024 1:26pm Amb Documentation December 08, 2024 2 :07pm 3 month f/u-HIGH RISK December 09, 2024 1:24pm Gerd/Diabetes-HIGH RISK December 26, 025 12:52pm Gastroesophageal reflux disease (GERD) F [facility] 2024 3:21pm [facility] ER:Abd Pain/Chronic Pain January [...] 2024 12:52pm [facility]es[facility] disease[facility] 12:52[facility] Lumbar degenerative disc disease Februar y 2024 12:52pm Seborrhea capitis in adult December 12:52pm Type 2 diabetes mellitus wit h diabetic chronic kidney disease December 26, 2024 12:52pm Acute on chronic diastolic CHF (congesti ve heart failure) January 06, 2025 3:21pm CKD (chronic kidney disease), stage IV F [facility] 2024 3:21pm GERD (gastroesophageal reflux disease) F [facility] 2024 3:21pm Lumbar degenerative disc disease ua2024 3:21pm Type 2 diabetes mellitus wit h hyperglycemia, with long-term current use of January 06, 2025 3:21pm Acute on chronic diastolic CHF (congesti ve heart failure) January 14, 2025 10:00am C. difficile diarrhea January 14, 2025 10 :00am GERD (gastroesophageal reflux disease) M [facility] 2024 10:00am Type 2 diabetes mellitus wit h hyperglycemia, with long-term current use of January 14, 2025 10:00am Diarrhea February 09, 2025 1:5 8pm Chief Complaint Admit Date Amb Documentation December 08, 2024 2 :07pm 3 month f/u-HIGH RISK December 09, 2024 1:24pm Gerd/Diabetes-HIGH RISK December 26, 2 025 12:52pm Gastroesophageal reflux disease (GERD) F [facility] 2024 3:21pm [facility] ER:Abd Pain/Chronic Pain January [...] CKD (chronic kidney disease), stage IV F [facility] 2024 3:21pm GERD (gastroesophageal reflux disease) F [facility] 2024 3:21pm Lumbar degenerative disc disease Februar 2024 3:21pm Type 2 diabetes mellitus wit h hyperglycemia, with long-term current use of January 06, 2025 3:21pm Acute on chronic diastolic CHF (congesti ve heart failure) January 14, 2025 10:00am C. difficile diarrhea January 14, 2025 10 :00am GERD (gastroesophageal reflux disease) [facility] 2024 10:00am Type 2 diabetes mellitus wit h hyperglycemia, with long-term current use of January 14, 2025 10:00am Acute on chronic diastolic CHF (congesti ve heart failure) February 09, 2025 1:58pm CKD (chronic kidney disease), stage IV [facility] 2024 1:58pm Diarrhea February 09, 2025 1:5 8pm GERD (gastroesophageal reflux disease) [facility] 2024 1:58pm Lumbar degenerative disc disease January [...] 025 12:52pm Gastroesophageal reflux disease (GERD) F [facility] 2024 3:21pm [facility] ER:Abd Pain/Chronic Pain January [...] 2024 12:52pm GERD (gastroesophageal reflux disease) F [facility] 2024 12:52pm Lumbar degenerative disc disease Februar y 2024 12:52pm Seborrhea capitis in adult December 12:52pm Type 2 diabetes mellitus wit h diabetic chronic kidney disease December 26, 2024 12:52pm Acute on chronic diastolic CHF (congesti ve heart failure) January 06, 2025 3:21pm CKD (chronic kidney disease), stage IV F [facility] 2024 3:21pm GERD (gastroesophageal reflux disease) F [facility] 2024 3:21pm Lumbar degenerative disc disease Februar 2024 3:21pm Type 2 diabetes mellitus wit h hyperglycemia, with long-term current use of January 06, 2025 3:21pm Acute on chronic diastolic CHF (congesti ve heart failure) January 14, 2025 10:00am C. difficile diarrhea January 14, 2025 10 :00am GERD (gastroesophageal reflux disease) [facility] 2024 10:00am Type 2 diabetes mellitus wit h hyperglycemia, with long-term current use of January 14, 2025 10:00am Acute on chronic diastolic CHF (congesti ve heart failure) February 09, 2025 1:58pm CKD (chronic kidney disease), stage IV M [facility] 2024 1:58pm Diarrhea February 09, 2025 1:5 8pm GERD (gastroesophageal reflux disease) M [facility] 2024 1:58pm Lumbar degenerative disc disease January [...] 025 12:52pm Gastroesophageal reflux disease (GERD) [facility] 2024 3:21pm [facility] ER:Abd Pain/Chronic Pain January [...] 2024 12:52pm GERD (gastroesophageal reflux disease) [facility] 2024 12:52pm Lumbar degenerative disc disease uar 2024 12:52pm Seborrhea capitis in adult December 12:52pm Type 2 diabetes mellitus wit h diabetic chronic kidney disease December 26, 2024 12:52pm Acute on chronic diastolic CHF (congesti ve heart failure) January 06, 2025 3:21pm CKD (chronic kidney disease), stage IV [facility] 2024 3:21pm GERD (gastroesophageal reflux disease) [facility] 2024 3:21pm Lumbar degenerative disc [...] 2024 3:21pm GERD (gastroesophageal reflux disease) [facility] 2024 3:21pm Lumbar degenerative disc disease Februar y 2024 3:21pm Type 2 diabetes mellitus wit h hyperglycemia, with long-term current use of January 06, 2025 3:21pm Acute on chronic diastolic CHF (congesti ve heart failure) January 14, 2025 10:00am C. difficile diarrhea January 14, 2025 10 :00am GERD (gastroesophageal reflux disease) [facility] 2024 10:00am Type 2 diabetes mellitus wit h hyperglycemia, with long-term current use of January 14, 2025 10:00am Acute on chronic diastolic CHF (congesti ve heart failure) February 09, 2025 1:58pm CKD (chronic kidney disease), stage IV M [facility] 2024 1:58pm Diarrhea February 09, 2025 1:5 8pm GERD (gastroesophageal reflux disease) [facility] 2024 1:58pm Lumbar degenerative disc disease January [...] section and content) DATE CREATED AUTHOR 05/10/2018 [facility] DATE CREATED AUTHOR AUTHOR'S ORGANIZ ATION 03/10/2023 [facility] DATE CREATED AUTHOR AUTHOR'S ORGANIZ ATION 10/04/2024 [facility] EPIC DATE CREATED AUTHOR AUTHOR'S ORGANIZ ATION 12/21/2024 [facility] DATE CREATED AUTHOR AUTHOR'S ORGANIZ ATION 05/24/2025 [facility] DATE CREATED AUTHOR AUTHOR'S ORGANIZ ATION 06/26/2025 [facility] REASON FOR VISIT (unrecogniz ed [...] Provider Active Start: March 13, 2025 Wandy Alvraez CMA Attending Provider Active Start: March 13, [...] 2025 Martine Guerrero Attending Provider Active Start: [facility] 2024 Team Status: Active Member Role [...] Team Status: Active Member Role Status Dates Shantle Steven MD Primary Care Provider Active Start: December 04, 2024 Nikky Silverman MD Attending Provider Active Sta rt: December 04, 2024 Team Status: Active Member Role Status Dates hSantel Steven MD Primary Care Provider Active Start: [...] MD Other Provider Active Start: 2023 Renetta Trievdi MD Other Provider Active Start: October 17, [...] 05, 2024 End: June 05, 2024 Cherie aRpp MD Attending Provider Active Start : June [...] End: January 18, 2024 Franchesca Sullivan APRN FITNESS MANAGER-C Attending Provider Act hciqui Start: January 18, 2024 End: January 18, [...] August 07, 2024 End: August 07, 2024 Light Adjuster Relationship Specialty Start Date End Date Shantel Steven MD [address] [facility] [address] PCP - General Family Medicine 06/25/24 Light Adjuster Relationship Specialty Start Date End Date Shantel Steven MD [address] [facility] [place] [phone] PCP - General Family Medicine 06/25/24 Light Adjuster Relationship Specialty Start Date End Date Shantel Steven MD [address] [facility] [place] [phone] PCP - General Family Medicine 06/25/24 Light Adjuster Relationship Specialty Start Date End Date Shantel Steevn MD [address] [facility] [place] [phone] PCP - General Family Medicine 06/25/24 Light Adjuster Relationship Specialty Start Date End Date Shantel Steven MD [address] [facility] [phone] PCP - General Family Medicine 06/25/24 Light Adjuster Relationship Specialty Start Date End Date Shantel Steven MD [address] [facility] [phone] PCP - General Family Medicine 06/25/24 Light Adjuster Relationship Specialty Start Date End Date Shantel Steven MD [address] [facility] [place] [phone] PCP - General Family Medicine 06/25/24 Light Adjuster Relationship Specialty Start Date End Date Shantel Steven MD [address] [facility] [place] [phone] PCP - General Family Medicine 06/25/24 Team [...] BE BASED ON THE PRIMARY CLINICAL RECORDS. [employer] provides no warranty or guarantee of the accuracy or completeness of information in this document.
[2025-06-28] MEDS: AMLODIPINE BESYLATE 5 MG TABLET PO (17:29)
[2025-06-28] MEDS: HYDRALAZINE HCL 20 MG/ML VIAL IVP (17:29)
--- NOTE | 2025-06-28 17:44 | ECG_ITS ---
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 Measurements Intervals [place] Rate: 81 P: 70 [place]: 164 QRS: 6 QRSD: 106 T: 83 QT: 385 QTc: 448 Interpretive Statements SINUS RHYTHM POSSIBLE ANTERIOR MYOCARDIAL INFARCTION [30 ms Q WAVE IN V3/V4, OR R < 0.2 mV IN V4], OF INDETERMINATE AGE Compared to ECG 06/28/2025 12:53:06 No significant changes Electronically Signed On 06-29-2025 17:45:35 EDT by RICA MEDRANO M.D.
[2025-06-28] MEDS: ALPRAZOLAM 0.25 MG TABLET PO (18:36)
[2025-06-28] MEDS: BUSPIRONE HCL 10 MG TABLET 5 MG PO (21:27)
[2025-06-28] MEDS: FAMOTIDINE 20 MG TABLET PO (21:27)
[2025-06-28] MEDS: METOPROLOL TARTRATE 25 MG TABLET PO (21:27)
[2025-06-28] MEDS: INSULIN GLARGINE 300 UNIT/3 ML INSULN.PEN 15 UNIT SQ (21:32)
[2025-06-29] VITALS (22 sets, daily range): BP systolic 141–168; BP diastolic 69–82; PULSE 65–131; TEMP 36.3–36.7; O2SAT 94–96; BMI 42.4
[2025-06-29 06:00] LABS: Hematocrit 32.4 % (36.0-48.0); Hemoglobin 10.2 g/dL (12.0-16.0); Immature Granulocytes Abs Auto 0.01 10^3/uL (0.00-0.03); Immature Granulocytes Pct Auto 0.2 % (0.0-0.5); Lymphocytes Absolute Auto 1.2 10^3/uL (1.2-3.8); Mean Corpuscular HGB Conc 31.5 g/dL (29.9-35.2); Mean Corpuscular Hemoglobin 29.3 pg (26.7-34.0); Mean Corpuscular Volume 93.1 fL (81.0-99.0); Platelet Count 194 10^3/uL (150-450); Red Blood Count 3.48 10^6/uL (4.20-5.40); White Blood Count 5.7 10^3/uL (4.0-11.0)
[2025-06-29 06:26] LABS: Alanine Aminotransferase 17 U/L (14-59); Albumin Globulin Ratio 0.5; Albumin Level 2.0 g/dL (3.4-5.0); Alkaline Phosphatase 109 U/L (46-116); Anion Gap 7.0; Aspartate Amino Transferase 16 U/L (15-37); Blood Urea Nitrogen 31.0 mg/dL (7.0-18.0); Calcium 8.2 mg/dL (8.5-10.1); Carbon Dioxide 31.7 mmol/L (21.0-32.0); Chloride 109 mmol/L (98-107); Estimated GFR (African America 45 (>=60 mL/min/1.73m^2); Estimated GFR (Non-African Ame 37 (>=60 mL/min/1.73m^2); Globulin 3.8 g/dL; Glucose 87 mg/dL (74-106); Potassium 3.7 mmol/L (3.5-5.1); Sodium 144 mmol/L (136-145); Total Protein 5.8 g/dL (6.4-8.2)
[2025-06-29] MEDS: LEVOTHYROXINE SODIUM 125 MCG TABLET PO (06:28)
[2025-06-29 06:32] LABS: NT Pro B Type Natriuretic Pept 7998.0 pg/mL (<=1800.0)
[2025-06-29] MEDS: DULOXETINE HCL 20 MG CAPSULE.DR PO (08:22)
[2025-06-29] MEDS: FUROSEMIDE 40 MG/4 ML VIAL IVP ×2 (08:22→20:51)
[2025-06-29] MEDS: BUSPIRONE HCL 10 MG TABLET 5 MG PO ×2 (08:23→20:50)
[2025-06-29] MEDS: METOPROLOL TARTRATE 25 MG TABLET PO ×2 (08:23→20:50)
[2025-06-29] MEDS: AMLODIPINE BESYLATE 5 MG TABLET PO (08:23)
[2025-06-29] MEDS: PANTOPRAZOLE SODIUM 40 MG TABLET.DR PO (08:23)
[2025-06-29] MEDS: CHOLECALCIFEROL (VITAMIN D3) 125 MCG/5,000 UNIT TABLET PO (08:23)
--- NOTE | 2025-06-29 09:10 | CM.NOTE ---
Rounds made with Dr. Stewart, discussed with pt and reason for admission (CHF) and plan of care. Pt will be inpatient status for CHF. Pt does have home oxygen @2L [place] from [facility].
--- NOTE | 2025-06-29 09:15 | CM.NOTE ---
PT and OT will evaluate pt for discharge planning.
--- NOTE | 2025-06-29 11:28 | PM.HP ---
HPI H&P: HPI History of Present Illness Chief complaint: SOB, CHF Narrative: Mrs. Luevano is a 79-year-old female who came back to the emergency room with shortness of breath. Patient was found to have hypoxemia. Saturation 88% on room air. Patient also was found to have significant elevation of the blood pressure. No fever or chills. No chest pain or palpitation. No abdominal pain. Opioid HPI Opioid Management Most Recent Pain and Opioid Data: Last Pain Scale 0 06/28/25, 14:55 Last Pain Intensity 3 06/09/24, 13:07 Last Pain Assessment 06/28/25, 17:03 Last ORT Total Score 1 06/28/25, 16:23 Last ORT Risk Category Low Risk 06/28/25, 16:23 Review of Systems ROS Status of ROS 10 or more systems reviewed and unremarkable except as noted in history and below [facility] Medical History (Updated 06/29/25 @ 11:31 by Monica Stewart MD) Noncompliance ?Z91.199 - Patient's noncompliance with other medical treatment and regimen due to unspecified reason (ICD-10) Diastolic congestive heart failure ?I50.30 - Unspecified diastolic (congestive) heart failure (ICD-10) Obesity ?E66.9 - Obesity, unspecified (ICD-10) CHF (congestive heart failure) ?I50.9 - Heart failure, unspecified (ICD-10) GERD without esophagitis ?K21.9 - Gastro-esophageal reflux disease without esophagitis (ICD-10) Anxiety ?F41.9 - Anxiety disorder, unspecified (ICD-10) Intermittent palpitations ?R00.2 - Palpitations (ICD-10) Acute hyperglycemia ?R73.9 - Hyperglycemia, unspecified (ICD-10) Acute kidney injury ?N17.9 - Acute kidney failure, unspecified (ICD-10) Acute on chronic clinical systolic heart failure ?I50.23 - Acute on chronic systolic (congestive) heart failure (ICD-10) Acute renal failure ?N17.9 - Acute kidney failure, unspecified (ICD-10) Hyperkalemia ?E87.5 - Hyperkalemia (ICD-10) Acute dehydration ?E86.0 - Dehydration (ICD-10) Diabetes mellitus with hyperglycemia, with long-term current use of insulin ?E11.65 - Type 2 diabetes mellitus with hyperglycemia (ICD-10) ?Z79.4 - penitentiary (current) use of insulin (ICD-10) Paroxysmal atrial fibrillation ?I48.0 - Paroxysmal atrial fibrillation (ICD-10) Hypothyroidism (acquired) ?E03.9 - Hypothyroidism, unspecified (ICD-10) Hypertension ?I10 - Essential (primary) hypertension (ICD-10) Hypokalemia ?E87.6 - Hypokalemia (ICD-10) CHF (congestive heart failure) ?I50.9 - Heart failure, unspecified (ICD-10) Cataracts, bilateral ?H26.9 - Unspecified cataract (ICD-10) Breast cancer ?C50.919 - Malignant neoplasm of unspecified site of unspecified female breast (ICD-10) Surgical History History of cholecystectomy ?Z90.49 - Acquired absence of other specified parts of digestive tract (ICD-10) History of appendectomy ?Z90.49 - Acquired absence of other specified parts of digestive tract (ICD-10) History of hysterectomy ?Z90.710 - Acquired absence of both cervix and uterus (ICD-10) H/O lumbosacral spine surgery ?Z98.890 - Other specified postprocedural states (ICD-10) H/O bilateral mastectomy ?Z90.13 - Acquired absence of bilateral breasts and nipples (ICD-10) Family History Other Family history of CHF (congestive heart failure) Family history of cancer Family history of diabetes mellitus Family history of hypertension H/O mastectomy Social History Within the past year, how often did you have a drink containing alcohol: never Within the past year, how often did you have six or more drinks on one occasion: never Score interpretation: A score less than 3 is consistent with normal alcohol consumption. 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 Highest level of school completed/degree received: some college, no degree Do you want help with school or training: No Are you now , , , , never or living with a partner: In a typical week, how many times do you talk on the telephone with family, friends, or neighbors: twice per week How often do you get together with friends or relatives: twice per week How often do you attend christian or sikhism services: never Do you belong to any clubs or organizations such as christian groups unions, fraternal or athletic groups, or school groups: no Total score: 2 Score interpretation: A score of greater than or equal to 2 indicates the lowest level of social isolation. Little interest or pleasure in doing things: not at all Feeling down, depressed, or hopeless: not at all Feel stressed/tense/nervous/anxious/difficulty sleeping: not at all Due to disability, difficulty making decisions: No Do you think of yourself as: straight/heterosexual Gender Identity: female Meds Home Medications and Allergies Home Medications ?Medication ?Instructions ?Recorded ?Confirmed ?Type insulin glargine 100 unit/mL (3 15 unit subcut BEDTIME 04/25/23 06/28/25 History mL) subcutaneous pen (Lantus Solostar U-100 Insulin) alprazolam 0.25 mg tablet 0.25 mg PO TID PRN anxiety 04/30/24 06/28/25 History levothyroxine 125 mcg tablet 125 mcg PO .acb 04/30/24 06/28/25 History insulin NPH isoph U-100 human 100 1 unit subcut AC 06/09/24 06/28/25 History unit/mL (3 mL) subcutaneous pen (Novolin N FlexPen) cholecalciferol (vitamin D3) 125 125 mcg PO DAILY 06/18/24 06/28/25 History mcg (5,000 unit) tablet (Vitamin D3) rivaroxaban 20 mg tablet (Xarelto) 20 mg PO DAILY 06/18/24 06/28/25 History vit C 226 mg-vit E 90 mg-copper 1 cap PO BID 06/18/24 06/28/25 History 0.8 mg-zinc oxide-lutein 5 mg capsule (PreserVision Lutein) famotidine 20 mg tablet 20 mg PO .qhs 07/24/24 06/28/25 History omeprazole 40 mg capsule,delayed 40 mg PO .acb 07/24/24 06/28/25 History release buspirone 5 mg tablet 5 mg PO BID 01/25/25 06/28/25 History duloxetine 20 mg capsule,delayed 20 mg PO DAILY 01/25/25 06/28/25 History release diphenoxylate-atropine 2.5 1 tab PO Q6H PRN Diarrhea 7 days 01/27/25 06/28/25 Rx mg-0.025 mg tablet (Lomotil) #28 tabs furosemide 40 mg tablet 40 mg PO DAILY 05/28/25 06/28/25 History metoprolol tartrate 25 mg tablet 25 mg PO BID #60 tabs 05/31/25 06/28/25 Rx amlodipine 5 mg tablet 5 mg PO QD 30 days #30 tabs 06/10/25 06/28/25 Rx propranolol 40 mg tablet 40 mg PO BID 06/19/25 06/28/25 History Allergies Allergy/AdvReac Type Severity Reaction Status Date / Time Iodinated Contrast Media Allergy Intermediate Hives Verified 06/28/25 12:56 shellfish derived Allergy Intermediate Hives Verified 06/28/25 12:56 Sulfa (Sulfonamide Allergy Unknown Rash Verified 06/28/25 12:56 Antibiotics) Exam Narrative Exam Narrative: [pt is awake and alert. oriented to place, time and person, morbidly obese. Mildly tachypneic HEENT: [place] conjunctiva and NL buccal mucosa Neck: Supple, no tenderness Endocrine: No Thyromegaly. Vascular: No JVD or carotid bruit. Lymphatic: No cervical lymphadenopathy. Chest: Bilateral crackles. Heart RRR, no extra sound or murmur. Abd: Soft, no tenderness, no rebound and no rigidity. Increase abd girth therefore clinically I could not exclude the possibility of intra abd mass or organomegaly. LE: No cyanosis or clubbing, no varices. Lymphedema involving the left arm which is chronic after mastectomy. +1 pitting edema in both legs. Skin candidiasis involving the groin. Neuro: A A O. Nl speech, comprehension and attention. Nl and symetrical motor and tone examination through out. Mild to moderate functional loss. Patient needs assist ambulating. Use walker. []] Constitutional Vital Signs, click to edit/add: Last Vital Signs Temp 97.5 F L 06/29/25 11:20 Pulse 71 06/29/25 11:20 Resp 20 06/29/25 11:20 BP 144/70 H 06/29/25 11:20 Pulse Ox 94 L 06/29/25 11:20 O2 Del Method Nasal Cannula 06/29/25 11:20 O2 Flow Rate 2 06/29/25 11:20 Results Labs Labs: Short CBC 06/28/25 06/29/25 Range/Units 13:49 05:54 WBC 7.5 5.7 (4.0-11.0) 10^3/uL Hgb 11.2 L 10.2 L (12.0-16.0) g/dL Hct 34.9 L 32.4 L (36.0-48.0) % Plt Count 158 194 (150-450) 10^3/uL BMP 06/28/25 06/29/25 13:48 05:42 Sodium 143 144 Potassium 4.2 3.7 Chloride 106 109 H Carbon Dioxide 30.7 31.7 BUN 31.0 H 31.0 H Creatinine 1.37 H 1.38 H Glucose 117 H 87 Calcium 8.4 L 8.2 L Liver Function 06/28/25 06/29/25 Range/Units 13:48 05:42 Total Bilirubin 0.5 0.6 (0.2-1.0) mg/dL AST 21 16 (15-37) U/L ALT 16 17 (14-59) U/L Alkaline Phosphatase 104 109 (46-116) U/L Albumin 2.2 L 2.0 L (3.4-5.0) g/dL Urine 06/28/25 Range/Units 15:05 Urine Color Lt. yellow (YELLOW) Urine Clarity Clear (CLEAR) Urine pH 7.0 (5.0-9.0) Ur Specific [place] 1.020 (1.005-1.025) Urine Protein >=300 A (NEG/TRACE) mg/dL Urine Glucose (UA) 100 A (NEGATIVE) mg/dL Assessment and Plan Assessment and Plan (1) Acute hypoxic respiratory failure: (2) Acute diastolic heart failure: (3) Hypertensive urgency: (4) Pleural effusion on left: (5) Pulmonary edema: (6) H/O mastectomy: (7) CKD (chronic kidney disease): (8) Multifactorial functional impairment: (9) Skin candidiasis: Plan Acute hypoxic respiratory failure, tachypnea, respiratory distress saturation 88%. Likely caused by Acute diastolic heart failure and pulmonary edema Suspect underlying restrictive lung disease secondary to obesity. Pleural effusion. Hypertensive urgency I had accepted to admit patient to the medical telemetry unit. Intravenous diuresis. Blood pressure management to keep systolic less than 155. Monitor kidney function Counseling about compliance. stated that patient misses taking some of her medications Paroxysmal A-fib. Currently sinus rhythm. Continue Xarelto CKD stage III At baseline Skin candidiasis Nystatin Functional impairment PT OT treatment Chronic medical conditions not listed above, incidental findings seen on labs and imaging. These would need to be addressed. Could be addressed when time and condition are appropriate. Could be addressed in the outpatient setting by PCP collaboration with other needed outpatient providers. I discussed her case with her at the bedside. I provided him information about her disease, prognosis, expectation and trajectory. Answered all his questions Urinary Catheter Management Urinary Catheter Management Urethral: Cath placed during this visit: yes Urethral indwelling: No Insertion date: 06/28/25 Insertion time: 15:00
--- NOTE | 2025-06-29 11:59 | SWNOTE1 ---
SW spoke to physical therapy at [facility]uddle and pt refused physical therapy 2x. SW attempted to see pt 3x, but pt was sleeping. SW to stop back in later today.
[2025-06-29] MEDS: NYSTATIN 15 GM POWDER 1 APPLIC TOPICAL ×2 (12:55→20:51)
[2025-06-29] MEDS: DIPHENOXYLATE HCL 2.5 MG/ATROPINE 0.025 MG TABLET 1 TAB PO (13:07)
--- NOTE | 2025-06-29 13:42 | SWNOTE1 ---
SW stopped in to speak with pt. Pt laying in bed, eyes open. Pt agreement to speak with SW. Pt voiced she was doing well at home, voiced she exercises on her own in the morning and keeps going all day. Pt voiced she at times wears her oxygen, but when sitting she does not always have it on. SW asked if home health was still coming in. She voiced that the nurse is. Pt in agreement to continue HH at discharge. SW did let her know that therapy would be working with her as well. She voiced she was tired today from not sleeping the last 2 nights, so she did not participate. SW encouraged her to try to do some exercises. Pt also voiced she did not have much of an appetite, but today was picking at some food and eating some. SW attempted to review IMM form with pt, but she voiced she needed to have a bowel movement. SW to get nurse. SW notified nurse, nurse to check on patient. SW to stop back in later.
--- NOTE | 2025-06-29 14:24 | SWNOTE1 ---
Pt is current with [facility]. SW faxed face sheet, inpt order, PT, ED note, and H&P to [facility].
--- NOTE | 2025-06-29 15:04 | SWNOTE1 ---
Important Message from Medicare reviewed and discussed with patient's , Warren. He verbalized understanding and SW signed the form that it was reviewed. Original placed in patient's room and copy placed in patient?s chart. Pt's did voiced frustration over the phone and expressed he does want pt to get better and the benefits of going to rehab, but voiced she is just not willing to accept the help.
[2025-06-29] MEDS: RIVAROXABAN 10 MG TABLET 20 MG PO (18:00)
[2025-06-29] MEDS: ALPRAZOLAM 0.25 MG TABLET PO (20:50)
[2025-06-29] MEDS: FAMOTIDINE 20 MG TABLET PO (20:50)
[2025-06-29] MEDS: INSULIN GLARGINE 300 UNIT/3 ML INSULN.PEN 15 UNIT SQ (20:59)
[2025-06-30] VITALS (20 sets, daily range): BP systolic 136–160; BP diastolic 71–77; PULSE 58–72; TEMP 36.3–36.4; O2SAT 93–98
[2025-06-30] MEDS: LEVOTHYROXINE SODIUM 125 MCG TABLET PO (05:53)
[2025-06-30] MEDS: PANTOPRAZOLE SODIUM 40 MG TABLET.DR PO (05:53)
[2025-06-30 06:05] LABS: Anion Gap 8.3; Blood Urea Nitrogen 34.0 mg/dL (7.0-18.0); Calcium 8.2 mg/dL (8.5-10.1); Carbon Dioxide 32.9 mmol/L (21.0-32.0); Chloride 106 mmol/L (98-107); Estimated GFR (African America 34 (>=60 mL/min/1.73m^2); Estimated GFR (Non-African Ame 28 (>=60 mL/min/1.73m^2); Glucose 50 mg/dL (74-106); Potassium 3.2 mmol/L (3.5-5.1); Sodium 144 mmol/L (136-145)
--- NOTE | 2025-06-30 07:28 | PC.NURSE ---
upon reviewing am labs, approximately 0500, rn seen pts FSBS was 50. RN went to patients room to recheck pts FSBS and got a reading of 54. Patient responsive but lethargic. Robertson juice given and patient is drinking it with encouragement as she keeps falling back asleep.
[2025-06-30] MEDS: CHOLECALCIFEROL (VITAMIN D3) 125 MCG/5,000 UNIT TABLET PO (08:33)
[2025-06-30] MEDS: METOPROLOL TARTRATE 25 MG TABLET PO ×2 (08:33→20:43)
[2025-06-30] MEDS: NYSTATIN 15 GM POWDER 1 APPLIC TOPICAL ×2 (08:33→20:43)
[2025-06-30] MEDS: AMLODIPINE BESYLATE 5 MG TABLET PO (08:33)
[2025-06-30] MEDS: BUSPIRONE HCL 10 MG TABLET 5 MG PO ×2 (08:33→20:43)
[2025-06-30] MEDS: DULOXETINE HCL 20 MG CAPSULE.DR PO (08:33)
[2025-06-30] MEDS: FUROSEMIDE 40 MG/4 ML VIAL 20 MG IVP ×2 (09:05→16:59)
[2025-06-30] MEDS: DIPHENOXYLATE HCL 2.5 MG/ATROPINE 0.025 MG TABLET 1 TAB PO ×2 (09:05→16:59)
--- NOTE | 2025-06-30 09:40 | CM.NOTE ---
Rounds made with Dr. Stewart, pt up in chair this am with PT. No discharge today will continue diuresing. Discussed plan of care with pt and . Dr. Stewart discussed skilled therapy at discharge with pt and , pt refusing skilled therapy at this time.
--- NOTE | 2025-06-30 10:25 | REH.PTDLY ---
Physical Therapy Daily Note PT Daily Note/Assess Start: 06/30/25 10:03 Freq: Status: Active Protocol: Document 06/30/25 09:40 KSTEINLE (Rec: 06/30/25 10:25 KSTEINLE No Response) Physical Therapy Daily Note/Assessment Time In 09:10 Time Out 09:39 Subjective Attempted 2x this morning and pt eating, then on commode. On 3rd attempt pt tried to refuse therapy, nursing in room and pt is agreeable to seated exs. Therapeutic Exercise 8 Minutes (minutes) Therapeutic Exercise 0 Units Therapeutic Exercise Instructed in B LE seated exs 10x ea with ankle pumps Treatment and circles, LAQ, marching, hip abd step outs, and hip add squeeze for improved strength and mobility. Therapeutic Activity 12 Minutes (minutes) Therapeutic Activity 1 Units Therapeutic Activity Sit to stand transfers 3x CGA. Gait training with RW 40 Comments feet on 2 L of O2 CGA. Pt returns to sit in recliner and then reports she needs to use commode again, gait 10 feet to commode SBA and no assistance needed for pt to doff brief. Call light at hand and nursing aware that pt is back on commode. Total Therapy 20 Minutes Total Physical 1 Therapy Units Daily Note Summary Pt did ambulate today after discussion with and rehabilitation case coordinator in room. No LOB noted, just fatigue. Pt refuses SNF, wants to go home with HH. Pt is to bring rollator in, as pt is more comfortable using this over hospitals RW. Pt states 'they just let me lay in that bed all day'. Educated pt that she is allowed to ask to get out of bed by using the call light and that is why she is on PT/OT caseload. Pt has initially refused therapy the past 2 days and requires encouragement to participate.
--- NOTE | 2025-06-30 11:15 | SWNOTE1 ---
SW stopped in and spoke with pt in regards to recommendation of SNF. Pt voiced many people have already spoke to her about this and she voiced she is going to return home is not going to rehab. Pt voiced she did get up and walk with therapy today. 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 She again let SW know that she does ambulate at home. SW did let her know it would be beneficial to go skilled for a short time to get stronger and that she would get more therapy at SNF than Home health. She again refused at this time. SW to send updated to [facility].
--- NOTE | 2025-06-30 11:20 | P.PN_ITS ---
Progress Note: Subjective Subjective Interval history: Patient is feeling better today. Improvement of shortness of breath. No chest pain. No abdominal pain. No fever or chills Exam Narrative Exam Narrative: [pt is awake and alert. oriented to place, time and person, morbidly obese. Mildly tachypneic HEENT: Leroy conjunctiva and NL buccal mucosa Neck: Supple, no tenderness Endocrine: No Thyromegaly. Vascular: No JVD or carotid bruit. Lymphatic: No cervical lymphadenopathy. Chest: Resolution of bilateral crackles. Heart RRR, no extra sound or murmur. Abd: Soft, no tenderness, no rebound and no rigidity. Increase abd girth therefore clinically I could not exclude the possibility of intra abd mass or organomegaly. LE: No cyanosis or clubbing, no varices. Lymphedema involving the left arm which is chronic after mastectomy. +1 pitting edema in both legs. Skin candidiasis involving the groin. Neuro: A A O. Nl speech, comprehension and attention. Nl and symetrical motor and tone examination through out. Mild to moderate functional loss. Patient needs assist ambulating. Use walker. []] Constitutional Vital Signs, click to edit/add: Last Vital Signs Temp 97.4 F L 06/30/25 07:26 Pulse 63 06/30/25 09:59 Resp 18 06/30/25 07:26 BP 136/71 06/30/25 07:26 Pulse Ox 94 L 06/30/25 07:26 O2 Del Method Nasal Cannula 06/30/25 07:26 O2 Flow Rate 2 06/30/25 07:26 Progress Note: Objective Labs Labs: [facility] 06/30/25 05:15 Sodium 144 Potassium 3.2 L Chloride 106 Carbon Dioxide 32.9 H BUN 34.0 H Creatinine 1.74 H Glucose 50 L Calcium 8.2 L Progress Note: A&P Assessment and Plan (1) Acute hypoxic respiratory failure: (2) Acute diastolic heart failure: (3) Hypertensive urgency: (4) Pleural effusion on left: (5) Pulmonary edema: (6) H/O mastectomy: (7) CKD (chronic kidney disease): (8) Multifactorial functional impairment: (9) Skin candidiasis: Plan Acute hypoxic respiratory failure, tachypnea, respiratory distress saturation 88%. Likely caused by Acute diastolic heart failure and pulmonary edema Suspect underlying restrictive lung disease secondary to obesity. Pleural effusion. Hypertensive urgency Patient is feeling better. Continue intravenous diuresis. Blood pressure management to keep systolic less than 155. Monitor kidney function. Slight bump of the creatinine. Not far from baseline. Acceptable rise for the sake of keeping patient in euvolemic state. Counseling about compliance. stated that patient misses taking some of her medications Paroxysmal A-fib. Currently sinus rhythm. Continue Xarelto CKD stage III At baseline Skin candidiasis Nystatin Functional impairment PT OT treatment Chronic medical conditions not listed above, incidental findings seen on labs and imaging. These would need to be addressed. Could be addressed when time and condition are appropriate. Could be addressed in the outpatient setting by PCP collaboration with other needed outpatient providers. I discussed her case with her at the bedside. I provided him information about her disease, prognosis, expectation and trajectory. Answered all his questions Urinary Catheter Management Urinary Catheter Management Urethral: Cath placed during this visit: yes Urethral indwelling: No Insertion date: 06/28/25 Insertion time: 15:00
[2025-06-30] MEDS: POTASSIUM CHLORIDE 10 MEQ ER TABLET 30 MEQ PO (12:13)
--- NOTE | 2025-06-30 14:30 | CM.NOTE ---
Case Management spoke with pt regarding CHF. Educated pt on signs and symptoms and when to call PCP. Pt also given written education regarding symptoms and what to look for to call PCP. Pt given chart to document daily weights and when to call PCP. Discussed with pt importance of preventative care and taking home medications as ordered. Pt and verbalize understanding.
[2025-06-30] MEDS: RIVAROXABAN 10 MG TABLET 20 MG PO (16:59)
[2025-06-30] MEDS: FAMOTIDINE 20 MG TABLET PO (20:43)
[2025-06-30] MEDS: ALPRAZOLAM 0.25 MG TABLET PO (20:43)
[2025-07-01] VITALS (8 sets, daily range): BP systolic 122–144; BP diastolic 58–83; PULSE 63–75; TEMP 36–36.5; O2SAT 92–96
[2025-07-01] MEDS: LEVOTHYROXINE SODIUM 125 MCG TABLET PO (05:54)
[2025-07-01] MEDS: PANTOPRAZOLE SODIUM 40 MG TABLET.DR PO (05:54)
[2025-07-01 06:15] LABS: Anion Gap 8.9; Blood Urea Nitrogen 36.0 mg/dL (7.0-18.0); Calcium 8.3 mg/dL (8.5-10.1); Carbon Dioxide 31.7 mmol/L (21.0-32.0); Chloride 106 mmol/L (98-107); Estimated GFR (African America 30 (>=60 mL/min/1.73m^2); Estimated GFR (Non-African Ame 25 (>=60 mL/min/1.73m^2); Glucose 189 mg/dL (74-106); Potassium 3.6 mmol/L (3.5-5.1); Sodium 143 mmol/L (136-145)
--- NOTE | 2025-07-01 07:15 | PM.DS1 ---
DS: Providers Provider Date of admission: 06/29/25 08:52 Primary care physician: Theodora Cuevas MD Consults: 06/29/25 Occupational Therapy Eval and Treat Routine Reason for consultation: weakness Physical Therapy Eval and Treat Routine Reason for consultation: weakness 06/29/25 11:34 Occupational Therapy Eval and Treat Routine Reason for consultation: Weakness Physical Therapy Eval and Treat Routine Reason for consultation: Weakness DS: Diagnosis Discharge Diagnosis (1) Acute hypoxic respiratory failure: (2) Acute diastolic heart failure: (3) Hypertensive urgency: (4) Pleural effusion on left: (5) Pulmonary edema: (6) H/O mastectomy: (7) CKD (chronic kidney disease): (8) Multifactorial functional impairment: (9) Skin candidiasis: Plan As listed above and others that are not listed DS: Summary Hospital Course Hospital Course: Mrs. Alexander is a 79-year-old female who came in with worsening shortness of breath. He was found to have the following Acute hypoxic respiratory failure, tachypnea, respiratory distress saturation 88%. Likely caused by Acute diastolic heart failure and pulmonary edema, likely triggered by hypertensive urgency. Suspect underlying restrictive lung disease secondary to obesity. Pleural effusion. Hypertensive urgency Chronic hypoxic respiratory failure on oxygen. Patient is feeling better. Continue intravenous diuresis. Switch to oral diuretics on discharge Blood pressure management to keep systolic less than 155. Monitor kidney function. Slight bump of the creatinine. Not far from baseline. Acceptable rise for the sake of keeping patient in euvolemic state. Counseling about compliance. stated that patient misses taking some of her medications Given the multiple admissions over the last 45 days with fluid overload, hypertensive urgency and CHF I would recommend patient to change her Lasix up to 40 mg twice a day. Additional potassium supplementation given her ongoing hypokalemia I do recommend patient to follow-up with her PCP once a week for 4 weeks to monitor recovery, adjust medication and prevent for future decompensation and rehospitalization. I would recommend a BMP to be done at PCP office weekly for 4 weeks to monitor electrolytes, kidney function and adjust medication accordingly. We have to keep patient in euvolemic state with the control of blood pressure to prevent future episodes of decompensation Paroxysmal A-fib. Currently sinus rhythm. Continue Xarelto CKD stage III Not far from baseline Acceptable rise of creatinine for the sake of keeping patient in the euvolemic state. I recommend weekly BMP to be done at PCP office for the next 4 weeks to monitor electrolytes and kidney function. Skin candidiasis Nystatin Functional impairment PT OT treatment Therapy team recommended short-term skilled care. Her is in agreement. Patient declined understanding potential risk and implication including falls at home, bowel injury, fracture, head injury and others Morbid obesity Recommended dietitian consultation. Recommend lifestyle modification and exercise. Patient uses a scooter at home Diabetes, fair control. Continue current regimen Instructed patient to do the following Check your blood sugar 3 times a day before meals. Document these numbers on a blood glucose log and bring them with you to your follow-up appointment with your primary care doctor. Communicate with your primary care doctor or digital strategy specialist if your blood sugar is under 100 or above 300 on 2 consecutive checks. Communicate with your primary care doctor or digital strategy specialist if you have any questions about your diabetes medications. Signs of a low blood sugar include sweating, racing heart, dizziness and/or weakness. Check your blood sugar if you have any of the symptoms. Chronic medical conditions not listed above, incidental findings seen on labs and imaging. These would need to be addressed. Could be addressed when time and condition are appropriate. Could be addressed in the outpatient setting by PCP collaboration with other needed outpatient providers. Patient has multiple complex medical issues as listed above and others that are not listed. All appear to be stable. Patient is feeling great and requesting to be discharged home. At this time I do not have any clear or strong clinical justification to extend inpatient hospitalization. Patient however will require close and frequent monitoring as well as additional work-up, investigation and therapeutic intervention that could take place from this point on post discharge. That is to prevent relapse, decompensation, rehospitalization and other medical implications. I instructed patient to ask her primary care doctor to obtain [facility] record entirely to address abnormalities seen on labs and imaging that I have and have not addressed during this hospitalization, follow-up on pending blood work, imaging and pathology is if available and to follow-up on needed medical care in the outpatient setting. Time Spent with Patient Time attestation: Total time spent providing and/or coordinating discharge services: Exam Constitutional Vital Signs, click to edit/add: Last Vital Signs Temp 97.6 F 07/01/25 04:00 Pulse 68 07/01/25 06:00 Resp 16 07/01/25 04:00 BP 144/83 H 07/01/25 04:00 Pulse Ox 94 L 07/01/25 04:00 O2 Del Method Nasal Cannula 07/01/25 04:00 O2 Flow Rate 2 07/01/25 04:00 DS: Data Data Completed and Pending Labs on day of discharge: Labs from last 24 hours 07/01/25 06/30/25 06/30/25 05:46 12:08 08:33 Sodium 143 Potassium 3.6 Chloride 106 Carbon Dioxide 31.7 Anion Gap 8.9 BUN 36.0 H Creatinine 1.95 H Est GFR ( Amer) 30 L Est GFR (Non-Af Amer) 25 L BUN/Creatinine Ratio 18.5 Glucose 189 H Calcium 8.3 L POC Glucose 135 H 95 06/30/25 07:18 Sodium Potassium Chloride Carbon Dioxide Anion Gap BUN Creatinine Est GFR ( Amer) Est GFR (Non-Af Amer) BUN/Creatinine Ratio Glucose Calcium POC Glucose 54 L Discharge Plan Discharge Disposition: Home, Self-Care Condition: Fair Discharge Medications: New potassium chloride 20 mEq tablet extended release 20 meq PO DAILY Qty: 30 1RF Continued insulin glargine [Lantus Solostar U-100 Insulin] 100 unit/mL (3 mL) insulin pen 15 unit SUBCUT BEDTIME levothyroxine 125 mcg tablet 125 mcg PO .acb alprazolam 0.25 mg tablet 0.25 mg PO TID PRN (Reason: anxiety) Patient Comments: 0.25mg PO TID PRN for anxiety buspirone 5 mg tablet 5 mg PO BID duloxetine 20 mg capsule,delayed release(DR/EC) 20 mg PO DAILY diphenoxylate-atropine [Lomotil] 2.5-0.025 mg Tablet 1 tab PO Q6H PRN (Reason: Diarrhea) 7 Days Qty: 28 0RF metoprolol tartrate 25 mg Tablet 25 mg PO BID Qty: 60 2RF amlodipine 5 mg Tablet 5 mg PO QD 30 Days Qty: 30 0RF Xarelto 20 mg tablet 20 mg PO DAILY Rx Instructions: must administer with evening meal PreserVision Lutein 226-90-0.8-5 mg capsule 1 cap PO BID cholecalciferol (vitamin D3) [Vitamin D3] 125 mcg (5,000 unit) tablet 125 mcg PO DAILY Novolin N FlexPen 100 unit/mL (3 mL) insulin pen 1 unit SUBCUT AC Patient Comments: (if BLOOD SUGAR is BETWEEN 150-199 INJECT 3 (THREE) UNITS, if BETWEEN 200-249 INJECT FOUR UNITS, if BETWEEN 250-299 INJECT 7 (SEVEN) UNITS, if BETWEEN 300-349 INJECT TEN UNITS, if BETWEEN 350-399 INJECT 12 UNITS, if 400 or great INJECT 14 UNITS) Rx Instructions: SLIDING SCALE famotidine 20 mg tablet 20 mg PO .qhs omeprazole 40 mg capsule,delayed release(DR/EC) 40 mg PO .acb Changed furosemide 40 mg tablet 40 mg PO BID Qty: 60 0RF Discontinued propranolol 40 mg tablet 40 mg PO BID Print Language: Honduran Activity Restrictions/Additional Instructions: I may not have addressed or treated all of your medical illnesses or the abnormal blood work or imaging studies during this hospitalization. Please ask your primary care provider to obtain [facility] records entirely to follow up on all of the abnormal physical, laboratory, and imaging findings that I have not addressed. Please return back to the emergency room or seek medical attention if your symptoms worsen or return. I would recommend you to follow-up with your primary care doctor every week for the next 4 weeks to monitor your condition, progress and adjust your medication accordingly I would recommend that you have a blood test ( BMP ) at your primary care doctor's office weekly for 4 weeks to monitor your electrolytes, potassium, kidney function and adjust medication accordingly. Please ask your primary care doctor to order this, review result and adjust medication. Check your blood sugar 3 times a day before meals. Document these numbers on a blood glucose log and bring them with you to your follow-up appointment with your primary care doctor. Communicate with your primary care doctor or digital strategy specialist if your blood sugar is under 100 or above 300 on 2 consecutive checks. Communicate with your primary care doctor or digital strategy specialist if you have any questions about your diabetes medications. Signs of a low blood sugar include sweating, racing heart, dizziness and/or weakness. Check your blood sugar if you have any of the symptoms. Discharging you from [facility] does not mean that your medical care ends here and now. You may still need additional monitoring, work up, investigation, and treatment plan to be handled from this point on by out patient providers including your primary care provider and specialists. For any medication question, please contact your retail pharmacist or your primary care provider. Thank you. Forms: Portal Instructions Follow Up Appointments: Thurs. 8/21 @ 9am with Dr. Cuevas [phone]
--- NOTE | 2025-07-01 08:00 | CM.NOTE ---
2nd Important Messge From Medicare discussed with pt, no questions or concerns.
[2025-07-01] MEDS: DIPHENOXYLATE HCL 2.5 MG/ATROPINE 0.025 MG TABLET 1 TAB PO (08:07)
--- NOTE | 2025-07-01 08:15 | PC.NURSE ---
patient is being very uncooperative at this time. Refusing to take her pills, insulin and iv lasix. Patient is alert and can answer questions appropriately but is very agitated and wants to get dressed. RN is trying to re direct patient and letting her know that she cannot get dressed until we receive a discharge order. Patient still not cooperating. Will not stay sitting in the chair. Keeps hollering out for her who is not here yet.
--- NOTE | 2025-07-01 09:37 | SWNOTE1 ---
Pt is going to be discharged home today with [facility] services coming in. Pt does have home oxygen at 2 liters with activity. BIJAL faxed CRF, dc med rec, and dc summary to [facility].
--- NOTE | 2025-07-01 10:46 | SWNOTE1 ---
SW did review discharge instructions and physician recommendations are to follow up with PCP every week for 4 weeks to monitor condition, progress, and adjust meds as needed. Also recommended BMP at PCP weekly for 4 weeks to monitor electrolytes, potassium, kidney function, and adjust meds accordingly. BIJAL called over to Dr. Cuevas's office and attempted to speak to Dr. Cuevas's nurse, no answer, SW left message. SW to try again later today.
--- NOTE | 2025-07-01 12:20 | SWNOTE1 ---
BIJAL received a call from Dr. Cuevas's nurse, Shelby. BIJAL updated her in regards to recommendations by hospitalist for follow up with PCP and lab work. BIJAL and Shelby did discuss pt refusal to go SNF and that it was offered to her. Shelby voiced she is very familiar with pt and . Shelby is aware of pt follow up scheduled for tomorrow. BIJAL advised that SW to fax over dc summary and dc recommendations over. Shelby voiced understanding. BIJAL faxed dc summary, and dc recommendations to Dr. Cuevas's office.
== END 2025-07-01 10:14 | disposition home health service (06) | DRG 291 ==
LOC: ER 14:58 → MS 16:11
PROVIDERS: Admitting Provider Internal Medicine; Emergency Provider Emergency Medicine; PCP Family Medicine; Visit Provider Internal Medicine
DX: I13.0 Hypertensive heart and chronic kidney disease with heart failure and stage 1 through stage 4 chronic kidney disease, or unspecified chronic kidney disease (principal); I50.33 Acute on chronic diastolic (congestive) heart failure; J96.21 Acute and chronic respiratory failure with hypoxia; Z68.41 Body mass index [BMI] 40.0-44.9, adult; I16.0 Hypertensive urgency; K21.9 Gastro-esophageal reflux disease without esophagitis; N18.30 Chronic kidney disease, stage 3 unspecified; F41.9 Anxiety disorder, unspecified; E03.9 Hypothyroidism, unspecified; I48.0 Paroxysmal atrial fibrillation; B37.2 Candidiasis of skin and nail; E66.01 Morbid (severe) obesity due to excess calories; I97.2 Postmastectomy lymphedema syndrome; Z79.4 Long term (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 insulin; Z79.890 Hormone replacement therapy; Z79.01 Long term (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 anticoagulants; Z79.899 Other long term (current) drug therapy; Z91.041 Radiographic dye allergy status; Z85.3 Personal history of malignant neoplasm of breast; Z90.13 Acquired absence of bilateral breasts and nipples; Z90.710 Acquired absence of both cervix and uterus; Z82.49 Family history of ischemic heart disease and other diseases of the circulatory system
CPT/HCPCS: 36415; 71045; 80048; 80053; 81001; 82948; 83880; 84484; 85025; 93005; 94761; 96374; 96375; 96376; 97110; 97161; 97165; 97530; 99285; G0378; J0360; J1938

== ENCOUNTER 2025-07-22 04:57 | Inpatient (IN) | payer MEDICARE, SELFPAY ==
--- OUTSIDE RECORDS SUMMARY | 2012-02-02 09:30 | XMS_ITS | Continuity of Care Document ---
Author Organization [employer] [facility] Address [address] [place] [address] Phone Care Team Providers Care Records Custodian Name Role Phone Frandy Addison MD Unavailable Unavailable Procedures Procedure Date OFFICE/OUTPATIENT VISIT, [facility] Advance Directives Directive Yes / No Effective Date File Name No Information Encounters Encounter Description Practice Location Reason(s) For Visit Diagnoses Date Provider Providers Copied on Encounter OFFICE/OUTPATI ENT VISIT, [facility] [employer] [facility], [address], [place], [place], [id number], [place] tel:[phone] [facility] No Information Cyn Wise. [address], [id number], [place]. tel:[phone] Referring Provider: Frandy Bowman, [address] [facility] [address], [place], [address]. tel:[phone] Family History Family Member Type Diagnosis Age At Onset No Information Payers Payer name Insurance type Covered green party ID Authoriza tion(s) [facility] CI [id number] Social History Type Description Quantity Date Captured Comments Sex Female Smoking Status No Information Chief Complaint And Reason For Visit No Information Reason For Referral Reason For Referral No Information History Of Present Illness Encounter Date Complaint History Of Prese nt Illness No Information Functional Status Date Functional Assessmen t No Information Instructions Date Instruction Additional Infor mation No Information Assessments Type Assessment Date No Information Patient Care Teams Name Effective Dates (start - stop) Status Members No Information
--- OUTSIDE RECORDS SUMMARY | 2012-05-09 08:45 | XMS_ITS | Continuity of Care Document ---
Author Organization [facility] Address [address] [address] Phone Care Team Providers Care Printing Supplies Sales Representative Name Role Phone Cliff Lance LITTLE Unavailable Unavailable Advance Directives Directive Yes / No Effective Date File Name No Information Encounters Encounter Description Practice Location Reason(s) For Visit Diagnoses Date Provider Providers Copied on Encounter [facility] , [address] [place] [address], [id number], tel:[phone] MASSIEL Corley No Information Cliff Lance. [address] [place] [address], [id number], [place]. tel:[phone] Referring Provider: Lance Coronado, [address] [place] [address], [address]. tel:[phone] Family History Family Member Type Diagnosis Age [...]
--- OUTSIDE RECORDS SUMMARY | 2024-04-24 09:05 | XMS_ITS | Continuity of Care Document ---
Author Organization [facility] Address [address] [place] [address] Phone Care Team Providers Care Tip Tester Name Role Phone John Anders MD, May Unavailable Unavailable Allergies, Adverse Reactions, Alerts Substance Reaction Status Criticality Sulfa (Sulfonamide Antibiotics) Active No Information iodine Active Unable to Asses s shellfish derived EdemaRashRash Active No Inform ation Medications Medication Instructions Dosage Effective Dates (start - stop) Status Comments Avastin 25 mg/mL intravenous solution DIRECT PATIENT ADMINISTRATION ONLY - Active Artificial Tears (carboxymethylcellul ose) 1 % eye drops - Active Bicillin C-R 900,000 unit-300k unit/2 mL intramuscular syringe - Active FARXIGA (unknown strength) take 1 tablet by oral route every day in the morning Not Available - Active alprazolam 2 mg tablet take 1 tablet by oral route 3 times every day 2 MG - Active furosemide 40 mg tablet take 1 tablet by oral route every day 40 MG - Active famotidine 20 mg tablet take 1 tablet by oral route every day 20 MG - Active Xarelto 20 mg tablet take 1 tablet by oral route every day with the evening meal 20 MG - Active Novolog Flexpen U-100 Insulin aspart 100 unit/mL (3 mL) subcutaneous inject by subcutaneous route per prescriber's instructions. Insulin dosing requires individualization. as needed 0.00 - Active Lantus U-100 Insulin 100 unit/mL subcutaneous solution inject by subcutaneous route as per insulin protocol as needed 0.00 - Active oxycodone 10 mg tablet take 1 tablet by oral route every 4 - 6 hours as needed - Active metoprolol tartrate 100 mg tablet take 1.5 tablet by oral route 2 times every day with meals - Active diltiazem ER (XR/XT) 120 mg capsule,extended release 24 hr, controlled take 1 capsule by oral route every day 120 MG - Active lisinopril 20 mg tablet take 1 tablet by oral route every day 20 MG - Active biotin 5 mg tablet - Active Vitamin D3 50 mcg (2,000 unit) capsule take 1 capsule by oral route every day 1 capsule - Active PreserVision AREDS 14,320 unit-226 mg-200 unit capsule - Active selenium 200 mcg capsule - Active garlic 200 mg tablet - Active Fish Oil 1,000 mg (120 mg-180 mg) capsule take 1 tablet by oral route every day 1 tablet - Active atorvastatin 20 mg tablet take 1 tablet by oral route every day 20 MG - Active levothyroxine 112 mcg capsule take 1 capsule by oral route every day 112 MCG - Active Procedures Procedure Date Intravitreal Injection Of Phamacologic A gent Intravitreal Injection Of Phamacologic A gent Ophthal DX Image Post Retina I And R Uni Or Bi Eylea 1mg Pre-filled Syringe Eylea 1mg Pre-filled Syringe Intravitreal Injection Of Phamacologic A gent Ophthal DX Image Post Retina I And R Uni Or Bi Eylea 1mg Pre-filled Syringe Intravitreal Injection Of Phamacologic A gent Ophthal DX Image Post Retina I And R Uni Or Bi Eylea 1mg Pre-filled Syringe Intravitreal Injection Of Phamacologic A gent Fundus Photos No Charge Bilateral Ophthal DX Image Post Retina I And R Uni Or Bi Bevacizumab injection OFFICE/OUTPATIENT VISIT, EST, Moderate F Intravitreal Injection Of Phamacologic A gent Ophthal DX Image Post Retina I And R Uni Or Bi Bevacizumab injection Intravitreal Injection Of Phamacologic A gent Ophthal DX Image Post Retina I And R Uni Or Bi Bevacizumab injection Intravitreal Injection Of Phamacologic A gent Ophthal DX Image Post Retina I And R Uni Or Bi Bevacizumab injection Intravitreal Injection Of Phamacologic A gent Fluorescein Angiography With I And R Uni Or Bi Ophthal DX Image Post Retina I And R Uni Or Bi Bevacizumab injection Intravitreal Injection Of Phamacologic A gent Intravitreal Injection Of Phamacologic A gent Intravitreal Injection Of Phamacologic A gent Ophthal DX Image Post Retina I And R Uni Or Bi Bevacizumab injection Bevacizumab injection Intravitreal Injection Of Phamacologic A gent Intravitreal Injection Of Phamacologic A gent Ophthal DX Image Post Retina I And R Uni Or Bi Bevacizumab injection Bevacizumab injection OFFICE/OUTPATIENT VISIT, EST, Moderate F Fundus Photography With I And R Bilatera l OFFICE/OUTPATIENT VISIT, [facility] Advance Directives Directive Yes / No Effective Date File Name No Information Encounters Encounter Description Practice Location Reason(s) For Visit Diagnoses Date Provider Providers Copied on Encounter [facility], [address], [place], [address], [place] tel: [phone] CONTRERAS Browning NPDR (chief complaint) 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 [address], [address], [place], [place], [id number] , [place]. tel:[phone] Referring Provider: March John lAyseaida, [address], [place], [address] . 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 [address], [address], [place], [place], [id number] , [place]. tel:[phone] Other Provider: Mady Lozano, [address] [place], [address]. tel:[phone] erring Provider: March John Anders, [address] [facility], [place], [address] . 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 [address], [address] [facility], [place], [place], [id number] , [place]. tel:[phone] Referring Provider: March John Anders, [address] [facility], [place], [address] . 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 [address], [address] [facility], [place], [place], [id number] , [place]. tel:[phone] Referring Provider: Renan Huang, [facility] [address] [place], [address]. tel:[phone] [facility], [address] [place], [address], [place] tel:[phone] CONTRERAS Contreras No Information 4 El Rashedy March. [address], [address] [facility], [place], [place], [id number] , [place]. 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 [address], [address] [facility], [place], [place], [id number] , [place]. tel:[phone] Referring Provider: Sanya Ross, [address] [facility], [place], [address] . tel:[phone] [facility], [address] [place], [address], [place] [phone] RVA Nam Follow Up of NPDR (chief complaint) 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, bilateralVitreous hemorrhage, right eyeHypertensive retinopathy of both eyesPseudophakiaHyper tension 3 Alkaliby Ahmed. [address], [address] [facility], [place], [place], [id number] , [place]. [phone] Referring Provider: Sanya Ross, [address] [facility], [place], [address] . 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 [address], [address] [facility], [place], [place], [id number] , [place]. tel:[phone] Referring Provider: Sanya Ross, [address] [facility], [place], [address] . 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 [address], [place], [place], [id number] , [place]. tel:[phone] Referring Provider: Sanya Newman M, [address], [place], [address] . tel:[phone] [facility], [address] [place], [address], [place] tel:[phone] RVA Nam NPDR w/ME (chief complaint) 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, bilateralVitreous hemorrhage, right eye Mar- 3 Alkaliby Ahmed. [address], [address], [place], [place], [id number] , [place]. tel:[phone] Referring Provider: Renan Huang, [facility] [address] [place], [address]. tel:[phone] OFFICE/OUTPA TIENT VISIT, EST, Moderate [facility], [address] [place], [address], [place] tel:[phone] RVA Feura Bush Macular edema (chief complaint) 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, bilateralPseudophakia HypertensionVitreous hemorrhage, right eyeHypertensive retinopathy of both eyesNexdtve age-related mclr degn, bilateral, early dry stage Feb-0 3 Alkaliby Ahmed. [address], [address], [place], [place], [id number] , [place]. [phone] Other Provider: Mady Lozano, [address] [place], [address]. tel:[phone] erring Provider: Renan Huang, [facility] [address] [place], [address]. tel:[phone] OFFICE/OUTPA TIENT VISIT, NEW [facility], [address] [place], [address], [place] tel:[phone] CONTRERAS Browning possible AMD (chief complaint) distorted vision (chief complaint) Nexdtve age-related mclr degn, bilateral, early dry stageRetinal hemorrhage, bilateralCombined forms of age-related cataract of both eyesEssential (primary) hypertension 1 Aidan Willard. [address], [place], [place], [id number] , [place]. tel:[phone] Specialist : Renan Huang, [facility] [address] [place], [address]. tel:[phone] erring Provider: Renan Huang, [facility] [address] [place], [address]. tel:[phone] [facility] Physician s, [address] [place], [address], [place] tel:[phone] CONTRERAS Browning No Information 1 Aidan Willard. [address], [address], [place], [place], [id number] , [place]. tel:[phone] Family History Family Member Type Diagnosis Age At Onset Father Problem degenerative disorder of mac georgette Father Problem glaucoma Father Problem hypertension Payers Payer name Insurance type Covered constitution party ID Authoriza tion(s) [employer] [id number] Social History Type Description Quantity Date Captured Comments Alcohol Use Details Unknown Caffeine Use Details Unknown Tobacco Use Status Ex-cigarette smoker 024 Smoking Status Former smoker Smoking Tobacco Use Details Cigarette: Age Started: 15, Age Stopped: 45, Years Used 30 Cigarette: 10 Cigarettes per day, Pack Year: 15 Sex Female Vital Signs Date / Time: Height Weight BMI Pulse Rate Blood Pressure Temperature Respiratory Rate Body Surface Area Head Circumference Head Circ. Percentile Wt./Ezequiel. Percentile BMI percentile Pulse Ox Inhaled Ox 1:01 PM 70/62 mm[Hg] Chief Complaint And Reason For Visit From encounter dated '04/24/2024 13:05'. NPDR (chief complaint). Description: The 78 year old patient presents for treatment of NPDR in the right and left eyes. Patient reports no new visual changes or concerns since her last exam 6 weeks ago. Patient experiences flashes, floaters, and eye pain in both eyes. 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 Assume care Appointment date/timeframe: 6-8 weeks ordered Patient Education Health Information for You: MedlinePl~ completed History Of Present Illness Encounter Date Complaint History Of Prese nt Illness NPDR The 78 year old patient presents for treatment of NPDR in the right and left eyes. Patient reports no new visual changes or concerns since her last exam 6 weeks ago. Patient experiences flashes, floaters, and eye pain in both eyes. NPDR The 78 year old patient presents for treatment and management of NPDR in both eyes. NPDR The 78 year old patient presents for treatment of NPDR in the right and left eyes. Patient states decrease in right and left eye. Patient reports for the last month she has had a cyst on left eye the size of a grape. Patient states a day or two after noticing the cyst she then seen multiple styes on left eye and then a week later styes on the right eye. Patient states she went and seen an eyeglass lens generator who recommended penicillin, an eye wash every morning, warm compress 2-3 times a day on right and left eye, apply pressure to open tear ducts. Patient denies new floaters, flashes of light and eye pain. NPDR The 78 year old patient presents for evaluation of NPDR in the right and left eyes. Patient reports no new visual changes or concerns since her last appointment. Patient denies flashes and eye pain but experiences floaters in both eyes. NPDR The 78 year old patient presents for treatment and management of NPDR in both eyes. Follow Up of NPDR The 78 year ol d female presents for evaluation of Follow Up of NPDR in the right and left eyes. Pt reports no changes in vision and her floater in the right eye has resolved 2 days ago. She denies flashes of light and eye pain. She is a type 2 IDDM Pt and last A1c is unknown. NPDR The 77 year old female presents for treatment of NPDR in the right and left eyes. Patient reports no new visual changes or concerns since her last appointment. Patient denies flashes, floaters, and eye pain. Type 2 DM with severe NPDR with ME The 77 year old female presents for 6 week evaluation of Type 2 DM with severe NPDR with ME in the right and left eyes. Patient says that she believes she can see better without her glasses. Patient states she believes her vision is better. Patient denies any floaters or flashes of light. NPDR w/ME The 77 year old female presents for evaluation of NPDR w/ME in the right and left eyes. Patient denies eye pain, flashes and floaters. Reports no significant vision changes since last appointment. Macular edema The 77 year old female presents for evaluation of Macular edema in the both eyes. PT had Cataract Sx OD about 1 yr ago and OS about 1 month ago. Pt being referred by Dr. Lozano. Pt states vision is blurry and saw told there is leakage in the back of the eye. She states she can read and do normal things except driving. PT reports windows distorted OS. PT is a type 2 DM. possible AMD The 75 year old female presents for evaluation of possible AMD in the right and left eyes, referral from Dr. Huang. distorted vision The patient is present for evaluation of distorted vision in the left eye. It started about 3 week(s) ago. It occurs constantly. The onset was sudden. It affects decrease in both near and distance vision. The symptom is all of the time. She noticed the changes as she was checking her amsler grid at home. She is also having more trouble reading. She notes stable vision in the right eye. 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, bilateral Impression/Plan Related to 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, bilateral Return in 10 week(s) with Sanya Newman MD for IO AVN OU w/OCT Related to 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, bilateral Impression/Plan Related to Hyper tension Impression/Plan Related to Pseud ophakia Impression/Plan Related to 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, bilateral Impression/Plan Related to Vitre ous hemorrhage, right eye Impression/Plan Related to Hyper tensive retinopathy of both eyes Impression/Plan Related to 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, bilateral Return in 8 week(s) with Sanya Newman MD for IO AVN OU/OCT OU Related to 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, bilateral Impression/Plan Related to 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, bilateral Mar-15-2023 Impression/Plan Related to Vitre ous hemorrhage, right eye Impression/Plan Related to 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, bilateral Impression/Plan Related to Nexdt ve age-related mclr degn, bilateral, early dry stage Impression/Plan Related to Vitre ous hemorrhage, right eye Impression/Plan Related to Hyper tensive retinopathy of both eyes Impression/Plan Related to Pseud ophakia Impression/Plan Related to Hyper tension Impression/Plan Related to 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, bilateral Return in 1 year wit mayra Bermudez MD for follow up and OCT Related to Type 2 diab with mild nonp rtnop without macular edema, bi Impression/Plan Related to Essen tial (primary) hypertension Impression/Plan Related to Combi fabiana forms of age-related cataract of both eyes Impression/Plan Related to Retin al hemorrhage, bilateral Impression/Plan Related to Nexdt ve age-related mclr degn, bilateral, early dry stage Impression/Plan Related to Type 2 diab with mild nonp rtnop without macular edema, bi Assessments Type Assessment Date assessment Type 2 diabetes maranda itus with severe nonproliferative diabetic retinopathy with macular edema, bilateral impression Type 2 diabetes maranda itus with severe nonproliferative diabetic retinopathy with macular edema, bilateral: E11.3413. Bilateral. Condition: established, stable Patient Care Teams Name Effective Dates (start - stop) Status Members No Information
--- OUTSIDE RECORDS SUMMARY | 2024-05-28 03:00 | XMS_ITS ---
Author Organization [facility] Address [address] [place] [address] Care Team Providers Care Machinist General Name Role Phone Theodora Cuevas M.D. Primary Care Provider Unavail able Eloina Mullins Unavailable [phone] REASON FOR VISIT C4-7 ACDF Encounters Encounter Location Date Provider Diagnosis IOS - Outpatient [address] [place] [id number] 05/28/2024 Eloina Mullins Plan Of Treatment No Information Progress Notes * JOE CALL GDOB:1945 (80 yo F)Acc No.[id number]:05/28/2024 Patient: Dulce GAVIN JOE G Provider: Mariama Le MD, PhD :1945 A ge:78 Y S ex:Female Date:05/28/2024 Address:[address] [place], [id number] Pcp:Theodora Cuevas M.D. * Images: * Electronic signature of Selv on [facility] Sherie MD, PHD on 07/22/2025 at 05:07 AM EDT Sign off status: Pending * Provider: Mariama Le MD, PhD Date: 05/28/2024 Generated for Printi ng/Faxing/eTransmitting on: 0 07/22/2025 05:07 AM EDT
--- OUTSIDE RECORDS SUMMARY | 2024-06-27 05:10 | XMS_ITS ---
Author Organization [facility] Address [address] [place] [address] Care Team Providers Care Job Boss Name Role Phone Theodora Cuevas M.D. Primary Care Provider Unavail able Eloina Mullins Unavailable [phone] REASON FOR VISIT C4-7 ACDF Encounters Encounter Location Date Provider Diagnosis [facility] [facility] [address] [place] [address] [place] [address] 06/27/2024 Eloina Mullins Plan Of Treatment No Information Progress Notes * JOE CALL GDOB:1945 (80 yo F)Acc No.[id number]:06/27/2024 Patient: JOE JACK Provider: Mariama Le MD, PhD :1945 A ge:78 Y S ex:Female Date:06/27/2024 Address:[address] [place], [id number] Pcp:Theodora Cuevas M.D. Subjective: * Chief Complaints: * 1 . C4-7 ACDF. * Medical History: Objective: * Vitals: Assessment: Plan: * Treatment: Forms: * Images: * Electronic signature of Dale Mullins MD, PHD on 07/22/2025 at 05:06 AM EDT Sign off status: Pending * Provider: Mariama Le MD, PhD Date: 0 06/27/2024 Generated for Printi ng/Faxing/eTransmitting on: 0 07/22/2025 05:06 AM EDT
--- OUTSIDE RECORDS SUMMARY | 2024-07-02 03:00 | XMS_ITS ---
Author Organization [facility] Address [address] [place] [address] Care Team Providers Care Resume Specialist Name Role Phone Theodora Cuevas M.D. Primary Care Provider Unavail able Eloina Mullins Unavailable [phone] REASON FOR VISIT C4-7 ACDF Encounters Encounter Location Date Provider Diagnosis [facility] [address] [place] [address] 07/02/2024 Eloina Mullins Plan Of Treatment No Information Progress Notes * JOE CALL GDOB:1945 (80 yo F)Acc No.[id number]:07/02/2024 Patient: Dulce GAVIN JOE G Provider: Mariama Le MD, PhD :1945 A ge:78 Y S ex:Female Date:07/02/2024 Address:[address] [place], [id number] Pcp:Theodora Cuveas M.D. * Images: * Electronic signature of Selv bonnie Mullins MD, PHD on 07/22/2025 at 05:06 AM EDT Sign off status: Pending * Provider: Mariama Le MD, PhD Date: 07/02/2024 Generated for Printi ng/Faxing/eTransmitting on: 0 07/22/2025 05:06 AM EDT
--- OUTSIDE RECORDS SUMMARY | 2024-07-15 16:21 | XMS_ITS ---
Author Organization The [facility] in [place] Address [address] [place] [address] Care Team Providers Care Crown Assembly Machine Set Up Mechanic Name Role Phone Theodora Cuevas Primary Care Provider Harman Boucher [phone] REASON FOR VISIT NOT A [facility] PATIENT Encounters Encounter Location Date Provider Diagnosis [facility] Medicine [address] [place] [address] 07/15/2024 Harman Morales Plan Of Treatment No Information Progress Notes * Kati LUEVANO GDOB:1945 (79 yo F)Acc No.[id number]:07/15/2024 Patient: Kati JACK :1945 A ge:79 Y S ex:Female Address:[address] [place], [address] * true * Date: Generated for Joannei ng/Fathig/eTransmitting on: 0 07/22/2025 05:07 AM EDT
--- OUTSIDE RECORDS SUMMARY | 2024-08-15 07:40 | XMS_ITS ---
Author Organization [facility] Address [address] [place] [address] Care Team Providers Care Space Control Agent Name Role Phone Theodora Cuevas M.D. Primary Care Provider Unavail able Eloina Mullins Unavailable [phone] REASON FOR VISIT C4-7 ACDF Encounters Encounter Location Date Provider Diagnosis [facility] [address] [place] [address] [address] [place] [address] 08/15/2024 Eloina Mullins Plan Of Treatment No Information Progress Notes * JOE CALL GDOB:1945 (80 yo F)Acc No.[id number]:08/15/2024 Progress Notes Patient: JOE JACK Provider: Mariama Le MD, PhD :1945 A ge:79 Y S ex:Female Date:08/15/2024 Address:[address] [place], [id number] Pcp:Theodora Cuevas M.D. Subjective: * Chief Complaints: * 1 . C4-7 ACDF. * Medical History: Objective: * Vitals: Assessment: Plan: * Treatment: Forms: * Images: * Electronic signature of Dale Mullins MD, PHD on 07/22/2025 at 05:07 AM EDT Sign off status: Pending * Provider: Mariama Le MD, PhD Date: 1 Generated for Bennie madera/Costa/eTransmitting on: 0 07/22/2025 05:07 AM EDT
[2025-07-22] VITALS (32 sets, daily range): BP systolic 142–198; BP diastolic 67–105; PULSE 65–103; TEMP 35.6–36.9; O2SAT 91–98; BMI 39.4; BMI 43.4
--- OUTSIDE RECORDS SUMMARY | 2025-07-22 05:07 | XMS_ITS | Clinical Summary ---
Author Organization [facility] Address [address], [address] [place] [address] Care Team Providers Care Health Care Specialist Name Role Phone Theodora Cuevas MD Primary Care Provider [phone] Allergies Active Allergy Reactions Criticality Noted Date [...] on file Insurance [employer] MEDICARE Care Teams Health Care Specialist Relationship Specialty Start Date End Date Theodora Cuevas MD PCP - General Family Medicine 02/13/18
--- OUTSIDE RECORDS SUMMARY | 2025-07-22 05:07 | XMS_ITS | Clinical Summary ---
Author Organization [facility] Address 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
--- OUTSIDE RECORDS SUMMARY | 2025-07-22 05:07 | XMS_ITS | Clinical Summary ---
Author Organization [facility] Address [address] [place] [address] Care Team Providers Care Mounting Inspector Name Role Phone Theodora Cuevas MD Primary Care Provider [phone] Allergies Active Allergy Reactions Criticality Noted Date [...] 05/20/2024 Immunization due 05/20/2024 Lactose intolerance 05/20/2024 termite helper (current) use of insulin 05/20/2024 Lumbar degenerative [...] Encounters Date Type Department Care Team Description 07/15/2025 Telephone Cardiology [address] [place] [address] Olga Pandya CNP 05/07/2025 Travel 05/07/2025 Telephone [facility] Vascular Lab [address] [place] [address] Mary Carson RN 04/27/2025 Refill [facility] [address] [place] [address] Angelica Valencia MA 04/22/2025 11:00 AM EDT Office Visit [facility] [address] [place] [address] Akira Kaplan MD Chronic diastolic congestive heart failure (CMS/HCC) (Primary Dx); Paroxysmal atrial fibrillation (CMS/HCC); Coronary artery disease involving [place] coronary artery of [place] heart without angina pectoris; Impairment of balance; Recurrent falls from Last 3 Months Family History Medical [...] drink = 0.6 oz pur e alcohol) [place] Safety & Environment Answer Date Rec orded [...] Risk Screening 2011 COVID-19 Vaccine ( season) 2025 09/28/2023, 10/28/2022, 10/03/2021, Additional history exists Influenza [...] topic Meningococcal Vaccine Aged Out No daniele roemo eligible based on patient's age to complete this topic Rotavirus Vaccines Aged Out No longer eligible based on patient's age to complete this topic Insurance [facility] MEDICARE ADVANTAGE Care Teams Mounting Inspector Relationship Specialty Start Date End Date Theodora Cuevas MD [address] [place] [address] #A PCP - General 07/20/22
--- OUTSIDE RECORDS SUMMARY | 2025-07-22 05:07 | XMS_ITS | Encounter Summary ---
Author Organization [facility] Address [address] [place] [address] Care Team Providers Care Psychological Science Professor Name Role Phone Theodora Cuevas MD Primary Care Provider [phone] Encounter Details Date Type Department Care Team (Late st Contact Info) Description 07/15/2025 Telephone Cardiology [address] [place] [address] Olga Pandya CNP [address] [place] [address] Social History Tobacco Use Types Packs/Day Years [...] PM EST documented as of this encounter Miscellaneous Notes * Telephone Encounter - Olga Pandya CNP - 07/15/2025 1:33 PM EDT We called and spoke to spouse regarding patients plans to proceed with LAAO evaluation. Pt had a fall back in May, which is why she canceled her DIANA at that time. Her spouse states that she is still pretty weak and they would like to wait until she gets stronger before proceeding. They will call and let us know when she is ready to proceed. Olga Pandya APRN-AB [facility] Cardiovascular Medicine documented in this encounter Plan of Treatment Not on file documented as of this encounter Visit Diagnoses Not on filedocumented in this encounter Care Teams Psychological Science Professor Relationship Specialty Start Date End Date Theodora Cuevas MD [address] [place] [address] #A PCP - General 07/20/22 documented as of this encounter
--- OUTSIDE RECORDS SUMMARY | 2025-07-22 05:07 | XMS_ITS | Clinical Summary ---
Author Organization [facility] Address [id number] [address] [place] [address] Care Team Providers Care Com Writer Name Role Phone Theodora Cuevas MD Primary Care Provider [phone] Allergies Active Allergy Reactions Criticality Noted Date Comments Shellfish Derived Hives 10/04/2022 Pt unsure if iodine can be used on the skin Sulfa (Sulfonamide Antibiotics) 04/15/2021 Medications atorvastatin (LIPITOR) 20 mg tablet Take 1 tablet (20 mg total) by mouth in the morning. Active vitamins A,C,E-zinc-romel er (ICAPS AREDS) 14,320-226-200 kcet-lk-utup capsule Take 2 capsules by mouth in the morning and 2 capsules before bedtime. Active omega 7-bvd-yuk-fish oil 300-1,000 mg capsule Take by mouth. [...] 08/28/2016, 08/30/2009 Medical Devices Implanted Type Area Electronics Installer Device Identifier Shelf Expiration Date Model / Serial / Lot Lens Iol Ultrasert 24.0d - [id number] - [id number] Implanted:Qty: 1 on 04/26/2021 by Renate Michaels MD at [facility] Lens Right: Eye [employer] 03/18/2023 [id number] 24.0 / [id number] / NA Lens Iol Ultrasert 22.5d - [id number] - [id number] Implanted:Qty: 1 on 10/26/2022 by Renate Michaels MD at [facility] Lens [employer] 05/08/2025 [id number] 22.5 / [id number] / NA Insurance [employer] MEDICARE Care Teams Com Writer Relationship Specialty Start Date End Date Theodora Cuevas MD [facility] [place] [address] PCP - General Family Medicine 04/26/21
--- OUTSIDE RECORDS SUMMARY | 2025-07-22 05:07 | XMS_ITS | Clinical Summary ---
Author Organization [facility] Address [address] [place] [address] Care Team Providers Care Privacy Compliance Manager Name Role Phone Jose Francisco Ross DO Primary Care Provider [phone] Social History Tobacco Use Types Packs/Day Years Used Date Smoking Tobacco: Never Assessed Comments Unknown Sex and Gender Information Value Date Recorded Sex Assigned at Not on file Legal Sex Female 3:22 PM EDT Gender Identity Not on file Sexual Orientation Not on file Plan of Treatment Not on file Insurance [employer] MEDICARE Care Teams Privacy Compliance Manager Relationship Specialty Start Date End Date Jose Francisco Ross DO PCP - General Family Medicine 06/23/15
--- OUTSIDE RECORDS SUMMARY | 2025-07-22 05:07 | XMS_ITS | Patient Health Record ---
Author Organization [facility] in [place] Address [address] [place] [address] Care Team Providers Care Saddle Stitching Machine Operator Name Role Phone Theodora Cuevas Primary Care Provider Unavailabl e Reason For Referral No Information Problems Problem Type SNOMED Code ICD Code Onset Dates Problem Status W/U Status Risk Notes Problem Hypomagnesemia (715926643) Hypomagnesemia (E83.42) Active confirmed Problem Atrial fibrillation (42379103) Atrial fibrillation (I48.91) Active confirmed Problem Hypertension (63578821) Hypertension (I10) Active confirmed Problem Congestive heart failure (65004599) CHF (congestive heart failure) (I50.9) Active confirmed Problem Gastroesophageal reflux disease (092310262) GERD (gastroesophageal reflux disease) (K21.9) Active confirmed Problem Hypothyroidism (62096816) Hypothyroidism (E03.9) Active confirmed Problem Diabetes mellitus type 2 (disorder) (99590251) DM2 (diabetes mellitus, type 2) (E11.9) Active confirmed Problem Acquired hypothyroidism (704547242) Acquired hypothyroidism (E03.9) Active confirmed Problem Iron deficiency anemia (77038184) Anemia, iron deficiency (D50.9) Active confirmed Problem Hyperglycemia due to type 2 diabetes mellitus (924703489494894) Diabetes mellitus with hyperglycemia (E11.65) Active confirmed Problem Acute on chronic systolic heart failure (257148342) Acute on chronic clinical systolic heart failure (I50.23) Active confirmed Problem Diabetes mellitus (08405807) Diabetes mellitus (E11.9) Active confirmed Plan Of Treatment No Information Insurance Providers Payer Name Payer Address Payer Phone Subscriber Number Group Number Insured Name Patient Relationship to Insured Coverage Start Date Coverage End Date [employer] AD[employer] PLAN [address] [address] [place] [address] [id number] Kati Luevano Self - patient is the insured 4
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
--- OUTSIDE RECORDS SUMMARY | 2025-07-22 05:10 | XMS_ITS | CCD ---
Author Organization [facility] Care Team Providers Care Venture Capitalist Name Role Phone UNKNOWN, PROVIDER Unavailable Unavailable [...] Care Provider MD Shantel Steven Attending Provider [phone] MD Shantel Steven Attending Provider Shantel Steven [...] Emergency Provider Daniele Jane DO Emergency Provider UnaShantel Marvin MD Primary Care Provider Shantel Steven MD Primary Care Provider Jorge Calix DO Emergency Provider Jorge Calix DO Emergency Provider Unavailable Shantel Steven MD Primary Care Provider Cherie Rapp MD Attending Provider Cheng Aviles APRN Attending Provider Jorge Calix DO Emergency Provider Unavailable Wandy Alvarez CMA Attending Provider UnavailShantel Morales MD Attending Provider [phone] Shantel Steven MD Primary Care Provider Cheng Aviles APRN Attending Provider Wandy Alvarez CMA Attending Provider UnavailShantel Moraels MD Attending Provider Analisa Bryant MD Attending Provider Monica Stewart MD Attending Provider Shantel Steven MD Primary Care Provider Cheng Aviles APRN Attending Provider Wandy Alvarez CMA Attending Provider Unavaila Jarred Vela DO Attending Provider Osbaldo Marlow MD Attending Provider Shantel Steven Admitting Unavailable Shantel Steven Attending Unavailable Kavin Escobar Attending UnavailMauri Pleitez Admitting Unavailable Ange Vergara Consulting Unavailable Shantel Steven Primary Care Unavailable Renetta Trivedi Consulting Unavaila Jorge Lambert Admitting Unavailable Jorge Calix Attending Unavailable Shantel Steven Primary Care Unavailable Zhang Norwood Admitting Unavailable Zhang Norwood Attending Unavailable Shantel Steven Primary Care Unavailable Daniele Jane Admitting Unavailable Daniele Jane Attending Unavailable Shantel Steven Primary Care Unavailable Shantel Steven Primary Care Unavailable Shantel Steven Attending Unavailable Shantel Steven Admitting Unavailable Shantel Steven Primary Care Unavailable Shantel Steven Attending Unavailable Shantel Steven Admitting Unavailable YAMEL PANDYA Attending Unavailable RICA KAPLAN Attending Unavailable SABRINA LUNA Attending Unavailable SABRINA LUNA Attending Unavailable SABRINA LUNA Attending Unavailable SABRINA LUNA Attending Unavailable YAMEL PANDYA Attending Unavailable YAMEL PANDYA Attending Unavailable Shantel Steven MD Primary Care Provider [phone] Shantel Steven MD Attending Provider [phone] Provider, Outside Attending Provider Unavailable Allergies Allergy Classification Reported Allergen(s) Allergy Type Date of Onset Reaction(s) Facility (1 source) Iodine (And Iodine Containting Drugs) Drug allergy (disorder) 03-04-20 12 [facility] (20 sources) Shellfish; Translations: [Shellfish] Food allergy (disorder) 03-04-20 12 rash, Eruption of skin (disorder) [facility] (20 sources) Sulfonamides (Antibiotic); Translations: [SULFA (SULFONAMIDE ANTIBIOTICS)] Drug allergy (disorder) 03-04-20 12 Rash [facility] (20 sources) Sulfacetamide Drug Allergy 02-15-20 24 diarrhea [facility] (20 sources) Contrast media; Translations: [contrast media (iodine-based)] Drug allergy 02-15-20 24 Unknown (qualifier value), Rash [facility] [place] (6 sources) Sulfonamides (Antibiotic); Translations: [sulfa drugs] Drug allergy Diarrhea (finding) [facility] (2 sources) Glucosamine Drug Allergy [facility] (2 sources) Iodine (And Iodine Containting Drugs) Drug allergy (disorder) 08-09-20 17 [facility] (11 sources) Contrast media Propensity to adverse reactions 11-18-[address] DYE [employer] Other (20 sources) Iodine; Translations: [IODINE] Drug Allergy 10-30-20 14 Other, Unknown [employer] Other (20 sources) Substance with sulfonamide structure and antibacterial mechanism of action (substance) Drug allergy 10-30-20 14 Unknown [employer] Other (11 sources) Dyes Propensity to adverse reactions Comment:CT Dyes,Dyes,IVP Dyes [facility] [employer] Other (20 sources) Shellfish; Translations: [shellfish derived] Allergy to substance 10-30-20 14 [facility] (20 sources) Iodinated Contrast Media; Translations: [Iodinated Contrast Media] Allergy to substance 02-15-20 24 [facility] (13 sources) metFORMIN; Translations: [METFORMIN HCL] Drug Allergy 07-03-20 24 [facility] (6 sources) Chocolate Flavoring Agent (Non-Screening) Propensity to adverse reactions 01-17-20 [facility] [employer] Work Phone: (12 sources) Shellfish-Derive d Products Drug Intolerance 03-15-20 18 [facility] (7 sources) Chocolate; Translations: [CHOCOLATE FLAVOR] Propensity to adverse reactions 01-17-20 [facility] [employer] Work Phone: (1 source) Sulfacetamide Drug Allergy 07-14-20 [facility] Repository (1 source) Sulfonamides (Antibiotic) Drug allergy (disorder) 07-14-20 [facility] Repository Medications Current Medications Medication Drug Class(es) [...] End: 03-25-2024 amLODIPine 5 mg oral tablet (2 sources) Dihydropyridine Calcium Channel Khadijah Start: 06-10-2025 ascorbic acid 226 mg / beta carotene 83220 unt / cuprous oxide 0.8 mg / dl-alpha tocopheryl acetate 200 unt / zinc oxide 34.8 mg oral capsule (6 sources) Vitamin C Start: 01-17-2024 Start: 01-17-2024 take 1 capsule by [facility] twice daily Vitamins A,C,N-Olry-Pihibo (Preservision Areds) 4,296 mcg-226 mg-90 mg capsule [...] 01-17-2024 End: 06-05-2024 take 1 capsule by [facility] every twenty-four hours Vitamin D3 125 MCG (5000 UT) 1 capsule Orally Once a day Active take 1 capsule by [facility] every twenty-four hours Vitamin D3 25 MCG (1000 UT) 1 capsule Orally Once a day Active cholestyramine resin 4000 mg powder for oral suspension (5 sources) Bile Acid Sequestrant Start: 03-07-2021 Questran 4 g/9 g ora l powder = 1 packet(s), Oral, Daily, # 30 EA, Refills(s) 11, [facility]acy: [facility], 165.1, cm, 03/07/21 13:49:00 EDT, Height/Length Dosing, 121.8, kg, 03/07/21 13:49:00 EDT, Weight Dosing Start Date: 03/07/21 Status: Ordered Start: 03-07-2021 Questran 4 g/9 g oral powder = 1 packet(s), Oral, Daily, # 30 EA, Refills(s) 11, [facility]acy: [facility], 165.1, cm, 03/07/21 13:49:00 EDT, Height/Length [...] Glucose Scanning Reade r ([employer] [place]) misc (17 sources) Start: 09-10-2024 Flash Glucose Scanning [place] ([employer] [place]) misc Active 0 .Route 1 September 10, 2024 8:12am As directed Start: 09-10-2024 Flash Glucose Scanning [place] ([employer] [place]) misc Active 0 .Route September 10, 2024 7:12am As directed Start: 07-16-2024 End: 09-10-2024 Flash Glucose Scanning Reade r ([employer] [place]) misc Discontinued 0 .Route July 16, 2024 12:00am September 10, 2024 8:13am As directed Start: 07-16-2024 End: 09-10-2024 Flash Glucose Scanning Re[place] r ([employer] [place]) misc Discontinued 0 .Route July 15, 2024 11:00pm September 10, 2024 7:13am As directed Start: 07-16-2024 Flash Glucose Scanning [place] ([employer] [place]) misc Active 0 .Route July 16, 2024 [...] (20 sources) Loop Diuretic Start: 10-20-2024 End: 07-01-2025 Start: 10-20-2024 End: 02-19-2025 Furosemide 40 mg [...] with drug therapy Start: 01-24-2024 insulin NPH, I sophane, (HumuLIN [...] mg t ablet Discontinued 0 .ROUTE .COMPLEX August 12, 2024 8:28am October 20, 2024 2:15pm TAKE 1 AND 1/2 TABLETS TWICE DAILY Start: 08-12-2024 End: 10-20-2024 Metoprolol Tartrate 100 mg t ablet Discontinued 0 .ROUTE .COMPLEX August 12, 2024 7:28am October 20, 2024 [...] Refills(s) 0 Start Date: 07/27/22 Status: Ordered potassium chloride 20 meq extended release oral tablet (15 sources) Start: 07-01-2025 Start: 02-09-2025 End: 02-19-2025 PreserVision AREDS (5 sources) Start: 07-27-2022 PreserVision A REDS Refill(s) 0 Start Date: 07/27/22 Status: Ordered rivaroxaban 20 mg oral tablet (20 sources) Factor Xa Inhibitor Start: 02-19-2025 Start: 06-12-2021 End: 02-09-2025 take 0.5 tablet by out once daily Xarelto 10 MG 1/2 [...] capsule Orally Once a day Active Vitamins A,C,Q-Rupi-Slgwcr (Preservision Areds) 4,296 mcg-226 mg-90 mg capsule (18 sources) Start: 01-17-2024 take 1 capsule by mouth twice daily Vitamins A,C,L-Pipr-Qgtqwh (Preservision Areds) 4,296 mcg-226 mg-90 mg capsule Active 1 CAP PO Twice daily January 17, 2024 12:00am Start: 01-17-2024 take 1 capsule by mo [facility] twice daily Vitamins A,C,K-Aczg-Lotnld (Preservision Areds) 4,296 mcg-226 mg-90 mg capsule [...] PO Twice daily as needed for pain January 04, 2024 March 03, 2024 4:30pm [...] Active Start: 07-23-2023 take 1 tablet by [facility] twice daily oxyCODONE-Acetaminophen 5-325 MG 1 table t Orally two times daily for 30 days Jul, Active Start: 07-17-2023 take 1 tablet by [facility] twice daily oxyCODONE-Acetaminophen 5-325 MG 1 table t Orally two times daily for 30 days Jul, Active Start: 05-22-2023 Start: 04-03-2023 take 1 tablet by [facility] twice daily oxyCODONE-Acetaminophen 5-325 MG 1 table t Orally two times daily for 30 days March, Active Start: 02-02-2023 take 1 tablet by [facility] twice daily oxyCODONE-Acetaminophen 5-325 MG 1 table t Orally two times daily for 30 days Jan, Active Start: 11-30-2022 take 1 tablet by [facility] twice daily oxyCODONE-Acetaminophen 5-325 MG 1 table t Orally two times daily for 30 days Nov, Active Start: 07-27-2022 take 1 tablet by [facility] twice daily acetaminophen-oxycodone 325 mg-2.5 mg or al tablet 1 tab(s), Oral, BID, Refill(s) 0 Start Date: 07/27/22 Status: Ordered Start: 06-12-2021 End: 06-19-2021 Start: 06-12-2021 End: 06-19-2021 take 1 tablet by mouth twice daily as needed for pain Oxycodone-Acetaminophen 5-325 mg tablet Discontinued 1 TAB PO Twice daily as needed for Pain June 12, 2021 12:00am June 19, 2021 3:13am [id number] 200 actuat albuter ol 0.09 mg/actuat metered [...] bedtime Orally Once a day Not-Taking amylase 723719 unt / lipase 68077 unt / protease 19734 unt delayed release oral capsule (20 sources) Start: End: Start: 06-11-2021 End: 06-19-2021 Vsavbn-Vdtsjunu-Xovfnho (Cre on) 24,000-76,000 -120,000 unit capsule,delayed release(DR/EC) Discontinued 1 - 2 CAP PO 1-2 TIMES DAILY June 11, 2021 12:00am June 19, 2021 3:12am Start: 05-10-2021 Creon 24,000 u nits oral delayed release capsule See Instructions, take 3 caps with each meal and 2 caps with each snack., # 390 caplet(s), Refills(s) 0, [facility]acy: [facility], 165.1, cm, 04/18/21 13:02:00 EDT, Height/Length [...] 01-17-2024 End: 04-03-2024 take 1 capsule by mo [facility] every twenty-four hours [...] 11-03-2024 ciprofloxacin 250 mg oral ta blet (18 sources) Quinolone Antimicrobial Start: 07-21-2024 End: 10-16-2024 dapagliflozin 10 mg oral tab let (20 sources) Sodium-Glucose Cotransporter 2 Inhibitor Start: 01-22-2024 End: 04-03-2024 FARXIGA Active Dapagliflozin Pr opanediol 10 MG 1 tablet once a day Active diclofenac sodium 0.01 mg/mg topical gel (17 sources) Nonsteroidal Anti-inflammatory Drug Start: 10-20-2024 End: 11-03-2024 24 hr dilTIAZem hydrochlorid e 120 mg extended release oral tablet (20 sources) Calcium Channel Khadijah Start: 02-19-2025 End: 06-04-2025 Start: 07-27-2022 take 1 capsule by [facility] once daily diltiazem 120 mg oral capsule, extended release 120 mg = 1 cap(s), Oral, Daily, Refills(s) 0 Start Date: 07/27/22 Status: Ordered Start: 06-19-2021 End: 02-09-2025 End: 07-22-2024 take 1 tablet by mouth in the morning dilTIAZem (Cardizem) 120 MG immediate release tablet Take 120 mg by mouth in the morning. 07/22/2024 Discontinued (Duplicate order) take 1 capsule by [facility] every twelve hours dilTIAZem HCl ER [...] Start: 06-12-2021 End: 01-17-2024 Garlic (20 sources) Non-Standardi zed Food Allergenic Extract Start: 01-17-2024 End: 04-03-2024 [...] aspart, human 1 00 unt/ml pen injector (18 sources) Insulin Analog Start: 06-12-2021 End: 01-24-2024 [...] before bedtime. 06/13/2024 Active Start: 06-05-2024 End: 06-22-2025 Start: 06-05-2024 End: 04-16-2025 Insulin Glargine (Basaglar [...] directed Subcutaneous 25units Active ketoconazole 20 mg/ml [facility] shampoo (20 sources) Azole Antifungal Start: 12-26-2024 [...] Active magnesium oxide 400 mg oral tablet (14 sources) Start: 02-09-2025 End: 03-12-2025 meloxicam 15 [...] nitrofurantoin, macrocrystal s 100 mg oral capsule (9 sources) Nitrofuran Antibacterial Start: 03-24-2025 End: 04-21-2025 [...] 2024 12:06pm July 16, 2024 10:36am Nystatin 184061 UNIT/GM 1 application Externally Twice a day for 10 days Active Nystatin 284108 UNIT/GM 1 application Externally Twice a day for 10 days Active nystatin 538781 unt/ml / triamcinolone acetonide 1 mg/ml topical [...] June 05, 2024 11:06am swish and swallow [place] 2-Kph-Gtr-Fish Oil (Fish Oil) 1,000 mg (120 mg-180 mg) capsule (19 sources) Start: 01-17-2024 End: 04-03-2024 take 1 capsule by mouth once daily [place] 8-Btl-Mdj-Fish Oil (Fish Oil) 1,000 mg (120 mg-180 mg) capsule Discontinued 1 CAP PO Daily January 17, 2024 12:00am April 03, 2024 10:49am Start: 01-17-2024 End: 04-03-2024 take 1 capsule by mouth once daily [place] 3-Kaf-Gnr-Fish Oil (Fish Oil) 1,000 mg (120 mg-180 mg) capsule Discontinued 1 CAP PO Daily January 17, 2024 1:00am April 03, 2024 11:49am Start: 01-17-2024 take 1 capsule by [facility] once daily [place] 7-Swh-Vxi-Fish Oil (Fish Oil) 1,000 mg (120 mg-180 mg) capsule Active 1 CAP PO Daily January 17, 2024 1:00am 24 hr oxybutynin chloride 10 mg extended release oral tablet (20 sources) Cholinergic Muscarinic Antagonist Start: 02-15-2024 End: 06-05-2024 propranolol hydrochloride 40 mg oral tablet (20 sources) beta-Adrenergic Khadijah Start: 03-05-2025 End: 06-04-2025 Start: 12-26-2024 End: 03-05-2025 selenomethionine 0.2 mg oral tablet (20 sources) Start: 01-17-2024 End: 04-03-2024 sodium chloride 0.111 meq/ml nasal spray (17 sources) Start: 10-25-2024 End: 11-03-2024 spironolactone 50 mg oral ta blet (20 sources) Aldosterone Antagonist Start: 03-28-2024 End: 07-16-2024 Start: 01-17-2024 End: 05-07-2024 take 1 tablet by joesph every twenty-four [...] triamcinolone acetonide 5 mg /ml topical cream (14 sources) Corticosteroid Start: 04-16-2025 End: 06-10-2025 24 [...] [Acute renal failure syndrome] Onset: 4 Episodic Administrative/social admission (1 source) Patient encounter status; Translations: [Dietary counseling and surveillance] 06-25-2025 Episodic Allergic reactions (13 sources) Contact dermatitis; Translations: [Unspecified contact dermatitis, unspecified cause] 04-16-2025 Episodic Anxiety disorders (20 sources) Anxiety; Translations: [Anxiety disorder, unspecified] Onset: 4 01-30-2024 Chronic Cardiac dysrhythmias (20 sources) Atrial fibrillation; Translations: [Paroxysmal atrial fibrillation] Onset: 2 07-27-2022 Chronic Cardiac dysrhythmias (20 sources) Bradycardia; Translations: [Bradycardia, unspecified] Onset: 4 10-20-2024 Episodic Chronic kidney disease (20 sources) Chronic kidney disease stage 3; Translations: [Chronic kidney disease, unspecified] Onset: 3 Resolved: 4 07-27-2022 Chronic Chronic kidney disease (3 sources) Chronic kidney disease; Translations: [Chronic kidney disease, stage 3 unspecified] Onset: 3 Chronic obstructive pulmonary disease and bronchiectasis (1 source) Bronchitis, not specified as acute or chronic Episodic Conditions associated with dizziness or vertigo (11 sources) Dizziness; Translations: [Dizziness and giddiness] Onset: 5 03-12-2025 Episodic Congestive heart failure; nonhypertensive (20 sources) Acute on chronic diastolic heart failure; Translations: [Acute on chronic diastolic (congestive) heart failure] Onset: 3 Chronic Coronary atherosclerosis and other heart disease (20 sources) Coronary arteriosclerosis; Translations: [Atherosclerotic heart disease of pilot station coronary artery without angina pectoris] Onset: 2 [...] 07-03-2024 Chronic E Codes: Struck by; against (12 sources) Fall; Translations: [Striking against unspecified object [...] Long-term current use of insulin; Translations: [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] Onset: 4 Resolved: 4 01-17-2024 Episodic Other aftercare (1 source) Other fpc (current) drug therapy; Translations: [OTH FPC CURRENT DRUG THERAPY] Onset: 3 Episodic Other aftercare (1 source) skilled nursing (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 anticoagulants; Translations: [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] Onset: 3 Episodic Other [...] UNS] Onset: 3 Chronic Other circulatory disease (17 sources) Elevated blood pressure; Translations: [Elevated blood-pressure reading, without diagnosis of hypertension] 11-02-2024 Episodic Other connective tissue disease (2 sources) Repeated falls; Translations: [Repeated falls] Onset: 5 Episodic Other diseases of kidney and ureters [...] Translations: [Chalazion] 01-18-2024 Episodic Other eye disorders (18 sources) Chalazion of right eyelid; Translations: [Chalazion right eye, unspecified eyelid] Onset: 4 07-03-2024 Episodic Other gastrointestinal disorders (20 sources) Irritable bowel syndrome; Translations: [Irritable bowel [...] lump, generalized] 05-07-2024 Episodic Other gastrointestinal disorders (17 sources) Abdominal bloating; Translations: [Abdominal distension (gaseous)] [...] 07-03-2024 Chronic Other inflammatory condition of skin (16 sources) Seborrheic dermatitis of scalp; Translations: [Seborrhea [...] [Other abnormalities of gait and mobility] Onset: 5 Episodic Other nutritional; endocrine; and metabolic disorders [...] nutritional; endocrine; and metabolic disorders (13 sources) Severe obesity; Translations: [Class 3 severe [...] source) Other amnesia Episodic Residual codes; unclassified (17 sources) Delirium; Translations: [Disorientation, unspecified] 10-28-2024 Episodic Residual codes; unclassified (4 sources) Confusional state; Translations: [Disorientation, unspecified] 06-04-2025 [...] 4 Resolved: 4 05-07-2024 Episodic Viral infection (17 sources) Disease caused by 2019-nCoV; Translations: [COVID-19] 10-25-2024 Episodic Past or Other Problems Problem Classification Problem Date Documented Date Episodic/Chronic Cancer of breast (18 sources) History of malignant neoplasm of breast; Translations: [Personal history of malignant neoplasm of breast] Onset: 03-20-2012 07-27-2022 Episodic Malaise and fatigue (20 sources) Weakness; Translations: [Asthenia] Onset: 07-10-2024 Episodic Noninfectious gastroenteritis (20 sources) Chronic diarrhea; Translations: [Noninfective gastroenteritis and colitis, unspecified] Onset: 01-16-2023 07-27-2022 Episodic Other aftercare (5 sources) skilled nursing (current) use of insulin; Translations: [FPC CURRENT USE OF INSULIN] Onset: 01-16-2023 Episodic Other circulatory disease (17 sources) Carotid bruit; Translations: [Other specified symptoms and signs involving the circulatory and respiratory systems] Onset: 01-16-2023 07-27-2022 Episodic Other circulatory disease (10 sources) Tightness in throat; Translations: [Other specified symptoms and signs involving the circulatory and respiratory systems] Onset: 07-22-2024 07-22-2024 Episodic Other diseases of veins and lymphatics (12 sources) Peripheral venous insufficiency; Translations: [Venous insufficiency (chronic) (peripheral)] Onset: 07-03-2024 07-03-2024 Episodic Other lower respiratory disease (4 sources) Shortness of breath; Translations: [SHORTNESS OF BREATH] Onset: 01-01-2023 Episodic Other nervous system disorders (14 sources) Impairment of balance; Translations: [Other abnormalities of gait and mobility] Onset: 07-08-2024 07-08-2024 Episodic Other nervous system disorders (12 sources) Ataxia; Translations: [Ataxia, unspecified] Onset: 07-08-2024 07-08-2024 Episodic Other nervous system disorders (20 sources) Paresthesia; Translations: [Paresthesia of skin] Onset: 07-08-2024 07-08-2024 Episodic Other nervous system disorders (13 sources) Sensory ataxia ; Translations: [Other lack of coordination] Onset: 07-10-2024 07-10-2024 Episodic Other non-traumatic joint disorders (12 sources) Pain in left shoulder; Translations: [Pain in joint, shoulder region] Onset: 07-03-2024 Resolved: 07-03-2024 07-03-2024 Episodic Pancreatic disorders (not diabetes) (17 sources) Exocrine pancreatic insufficiency; Translations: [Exocrine pancreatic insufficiency] Onset: 01-16-2023 07-27-2022 Episodic Residual codes; unclassified (1 source) Generalized edema; Translations: [GENERALIZED EDEMA] Onset: 09-21-2022 Episodic Residual codes; unclassified (2 sources) Disorientation, unspecified; Translations: [Other alteration of consciousness] Onset: 10-16-2024 10-20-2024 Episodic Residual codes; unclassified (1 source) Other specified postprocedural states; Translations: [Other specified postprocedural states] Onset: 10-16-2024 Episodic Results Test Name Value Interpretation Reference Range Facility Telephoneon 07-15-2025 Telephone [id number] Joe Call 1945 F Date Provider Department Center 07/15/2025 [facility] None Family History Problem Relation Age of Onset Heart disease Mother Heart attack Father Coronary artery disease Other Diabetes Other Polycystic kidney disease Other Family Status - Relation Status Age at Mother Father Sister Brother Other Normal [facility] Glomerular filtration rate ( GFR) estimation in non- AmericanOrdered By: Monica Stewart on 07-01-2025 GFR/1.73 sq M.predicted among non-blacks MDRD (S/P/Bld) [Vol rate/Area] 25 mL/min/{1.73_m2} Low >=60 mL/min/1.73 m 2 [facility] No Panel InformationOrdered By: Monica Stewart on 07-01-2025 18.5 [facility] 36.0 mg/dL High 7.0-18.0 [facility] 8.3 mg/dL Low 8.5-10.1 [facility] 106 mmol/L 98-107 [facility] 31.7 mmol/L 21.0-32.0 [facility] 1.95 mg/dL High 0.55-1.02 [facility] 30 Low >=60 mL/min/1.73 m 2 [facility] 189 mg/dL High 74-106 [facility] 3.6 mmol/L 3.5-5.1 [facility] 143 mmol/L 136-145 [facility] Serum or plasma anion gap de terminationOrdered By: Monica Stewart on 07-01-2025 Anion gap [Moles/Vol] 8.9 mmol/L [facility] Glomerular filtration rate ( GFR) estimation in non- AmericanOrdered By: Monica Stewart on 06-30-2025 GFR/1.73 sq M.predicted among non-blacks MDRD (S/P/Bld) [Vol rate/Area] 28 mL/min/{1.73_m2} Low >=60 mL/min/1.73 m 2 [facility] No Panel InformationOrdered By: Monica Stewart on 06-30-2025 19.5 [facility] 34.0 mg/dL High 7.0-18.0 [facility] 8.2 mg/dL Low 8.5-10.1 [facility] 106 mmol/L 98-107 [facility] 32.9 mmol/L High 21.0-32.0 [facility] 1.74 mg/dL High 0.55-1.02 [facility] 34 Low >=60 mL/min/1.73 m 2 [facility] 50 mg/dL Low 74-106 [facility] 3.2 mmol/L Low 3.5-5.1 [facility] 144 mmol/L 136-145 [facility] Serum or plasma anion gap de terminationOrdered By: Monica Stewart on 06-30-2025 Anion gap [Moles/Vol] 8.3 mmol/L [facility] Basophils Auto (Bld) [#/Vol] Ordered By: Monica Stewart on 06-29-2025 Basophils (Bld) [#/Vol] 0.1 10 3/uL 0.0-0.1 [facility] Basophils/100 WBC Auto (Bld) Ordered By: Monica Stewart on 06-29-2025 Basophils/100 WBC (Bld) 1.6 % 0.2-2.0 [facility] Eosinophils/100 WBC Auto (Bl d)Ordered By: Monica Stewart on 06-29-2025 Eosinophils/100 WBC (Bld) 2.4 % 0.9-7.0 [facility] Erythrocyte distribution wid th Auto (RBC) [Ratio]Ordered By: Monica Stewart on 06-29-2025 Erythrocyte distribution width (RBC) [Ratio] 16.1 % High 11.0-15.0 [facility] Globulin Calc (S) [Mass/Vol] Ordered By: oMnica Stewart on 06-29-2025 Globulin (S) [Mass/Vol] 3.8 g/dL [facility] Glomerular filtration rate ( GFR) estimation in non- AmericanOrdered By: Monica Stewart on 06-29-2025 GFR/1.73 sq M.predicted among non-blacks MDRD (S/P/Bld) [Vol rate/Area] 37 mL/min/{1.73_m2} Low >=60 mL/min/1.73 m 2 [facility] Hematocrit Auto (Bld) [Volum e fraction]Ordered By: Monica Stewart on 06-29-2025 Hematocrit (Bld) [Volume fraction] 32.4 % Low 36.0-48.0 [facility] Hemoglobin [Mass/volume] in BloodOrdered By: Monica Stewart on 06-29-2025 Hemoglobin (Bld) [Mass/Vol] 10.2 g/dL Low 12.0-16.0 [facility] Leukocytes [#/volume] correc gali for nucleated erythrocytes in Blood by Automated counOrdered By: Monica Stewart on 06-29-2025 WBC corrected for nucl RBC Auto (Bld) [#/Vol] 5.7 10 3/uL 4.0-11.0 [facility] Lymphocytes Auto (Bld) [#/Vo l]Ordered By: Monica Stewart on 06-29-2025 Lymphocytes (Bld) [#/Vol] 1.2 10 3/uL 1.2-3.8 [facility] Lymphocytes/100 WBC Auto (Bl d)Ordered By: Monica Stewart on 06-29-2025 Lymphocytes/100 WBC (Bld) 20.6 % 20.5-60.0 [facility] MCH Auto (RBC) [Entitic mass ]Ordered By: Monica Stewart on 06-29-2025 MCH (RBC) [Entitic mass] 29.3 pg 26.7-34.0 [facility] MCHC Auto (RBC) [Mass/Vol]Or dered By: Monica Stewart on 06-29-2025 MCHC (RBC) [Mass/Vol] 31.5 g/dL 29.9-35.2 [facility] MCV Auto (RBC) [Entitic vol] Ordered By: Monica Stewart on 06-29-2025 MCV (RBC) [Entitic vol] 93.1 fL 81.0-99.0 [facility] Monocytes Auto (Bld) [#/Vol] Ordered By: Monica Stewart on 06-29-2025 Monocytes (Bld) [#/Vol] 0.6 10 3/uL 0.3-0.8 [facility] Monocytes/100 WBC Auto (Bld) Ordered By: Monica Stewart on 06-29-2025 Monocytes/100 WBC (Bld) 10.1 % 1.7-12.0 [facility] Neutrophils Auto (Bld) [#/Vo l]Ordered By: Monica Stewart on 06-29-2025 Neutrophils (Bld) [#/Vol] 3.7 10 3/uL 1.4-6.5 [facility] Neutrophils/100 WBC Auto (Bl d)Ordered By: Monica Stewart on 06-29-2025 Neutrophils/100 WBC (Bld) 65.1 % 43.0-75.0 [facility] No Panel InformationOrdered By: Monica Stewart on 06-29-2025 0.1 10 3/uL 0.0-0.7 [facility] 0.01 10 3/uL 0.00-0.03 [facility] 0.2 % 0.0-0.5 [facility] 7998.0 pg/mL Critically high <=1800.0 [facility] 2.0 g/dL Low 3.4-5.0 [facility] 109 U/L 46-116 [facility] 17 U/L 14-59 [facility] 16 U/L 15-37 [facility] 22.5 [facility] 31.0 mg/dL High 7.0-18.0 [facility] 8.2 mg/dL Low 8.5-10.1 [facility] 109 mmol/L High 98-107 [facility] 31.7 mmol/L 21.0-32.0 [facility] 1.38 mg/dL High 0.55-1.02 [facility] 45 Low >=60 mL/min/1.73 m 2 [facility] 87 mg/dL 74-106 [facility] 3.7 mmol/L 3.5-5.1 [facility] 144 mmol/L 136-145 [facility] 0.6 mg/dL 0.2-1.0 [facility] 5.8 g/dL Low 6.4-8.2 [facility] Platelet mean volume Auto (B ld) [Entitic vol]Ordered By: Monica Stewart on 06-29-2025 Platelet mean volume (Bld) [Entitic vol] 10.2 fL 9.5-13.5 [facility] Platelets Auto (Bld) [#/Vol] Ordered By: Monica Stewart on 06-29-2025 Platelets (Bld) [#/Vol] 194 10 3/uL 150-450 [facility] RBC Auto (Bld) [#/Vol]Ordere d By: Monica Stewart on 06-29-2025 RBC (Bld) [#/Vol] 3.48 10 6/uL Low 4.20-5.40 [facility] Serum or plasma albumin/glob ulin mass ratioOrdered By: Monica Stewart on 06-29-2025 Albumin/Globulin [Mass ratio] 0.5 {ratio} [facility] Serum or plasma anion gap de terminationOrdered By: Monica Stewart on 06-29-2025 Anion gap [Moles/Vol] 7.0 mmol/L [facility] Basophils Auto (Bld) [#/Vol] Ordered By: Jarred Galan on 06-28-2025 Basophils (Bld) [#/Vol] 0.1 10 3/uL 0.0-0.1 [facility] Basophils/100 WBC Auto (Bld) Ordered By: Jarred Galan on 06-28-2025 Basophils/100 WBC (Bld) 1.2 % 0.2-2.0 [facility] Eosinophils/100 WBC Auto (Bl d)Ordered By: Jarred Galan on 08-17-2025 Eosinophils/100 WBC (Bld) 2.4 % 0.9-7.0 [facility] Erythrocyte distribution wid th Auto (RBC) [Ratio]Ordered By: Jarred Galan on 06-28-2025 Erythrocyte distribution width (RBC) [Ratio] 15.9 % High 11.0-15.0 [facility] Globulin Calc (S) [Mass/Vol] Ordered By: Jarred Galan on 06-28-2025 Globulin (S) [Mass/Vol] 5.1 g/dL [facility] Glomerular filtration rate ( GFR) estimation in non- AmericanOrdered By: Jarred Galan on 06-28-2025 GFR/1.73 sq M.predicted among non-blacks MDRD (S/P/Bld) [Vol rate/Area] 37 mL/min/{1.73_m2} Low >=60 mL/min/1.73 m 2 [facility] Hematocrit Auto (Bld) [Volum e fraction]Ordered By: Jarred Galan on 06-28-2025 Hematocrit (Bld) [Volume fraction] 34.9 % Low 36.0-48.0 [facility] Hemoglobin [Mass/volume] in BloodOrdered By: Jarred Galan on 06-28-2025 Hemoglobin (Bld) [Mass/Vol] 11.2 g/dL Low 12.0-16.0 [facility] Leukocytes [#/volume] correc gali for nucleated erythrocytes in Blood by Automated counOrdered By: Jarred Galan on 06-28-2025 WBC corrected for nucl RBC Auto (Bld) [#/Vol] 7.5 10 3/uL 4.0-11.0 [facility] Lymphocytes Auto (Bld) [#/Vo l]Ordered By: Jarred Galan on 06-28-2025 Lymphocytes (Bld) [#/Vol] 0.9 10 3/uL Low 1.2-3.8 [facility] Lymphocytes/100 WBC Auto (Bl d)Ordered By: Jarred Galan on 06-28-2025 Lymphocytes/100 WBC (Bld) 12.6 % Low 20.5-60.0 [facility] MCH Auto (RBC) [Entitic mass ]Ordered By: Jarred Galan on 06-28-2025 MCH (RBC) [Entitic mass] 29.5 pg 26.7-34.0 [facility] MCHC Auto (RBC) [Mass/Vol]Or dered By: Jarred Galan on 06-28-2025 MCHC (RBC) [Mass/Vol] 32.1 g/dL 29.9-35.2 [facility] MCV Auto (RBC) [Entitic vol] Ordered By: Jarred Galan on 06-28-2025 MCV (RBC) [Entitic vol] 91.8 fL 81.0-99.0 [facility] Monocytes Auto (Bld) [#/Vol] Ordered By: Jarred Galan on 06-28-2025 Monocytes (Bld) [#/Vol] 0.6 10 3/uL 0.3-0.8 [facility] Monocytes/100 WBC Auto (Bld) Ordered By: Jarred Galan on 06-28-2025 Monocytes/100 WBC (Bld) 8.1 % 1.7-12.0 [facility] Neutrophils Auto (Bld) [#/Vo l]Ordered By: Jarred Galan on 06-28-2025 Neutrophils (Bld) [#/Vol] 5.6 10 3/uL 1.4-6.5 [facility] Neutrophils/100 WBC Auto (Bl d)Ordered By: Jarred Galan on 06-28-2025 Neutrophils/100 WBC (Bld) 75.6 % High 43.0-75.0 [facility] No Panel InformationOrdered By: Jarred Galan on 06-28-2025 NO [facility] SEEN #/LPF Abnormal NONE SEEN [facility] None Seen #/HPF NONE SEEN [facility] TRACE #/HPF Abnormal NONE SEEN [facility] Negative NEGATIVE [facility] SMALL Abnormal NEGATIVE [facility] CLEAR CLEAR [facility] LT. YELLOW YELLOW [facility] 100 mg/dL Abnormal NEGATIVE [facility] RARE [facility] TRACE Abnormal NONE SEEN [facility] 7.0 5.0-9.0 [facility] >=300 mg/dL Abnormal NEG/TRACE [facility] 5-10 #/HPF Abnormal 0-2 [facility] 1.020 1.005-1.025 [facility] FEW #/LPF Abnormal NONE/RARE [facility] 0.2 EU/dL 0.2-1.0 [facility] 0.2 10 3/uL 0.0-0.7 [facility] 0.01 10 3/uL 0.00-0.03 [facility] 0.1 % 0.0-0.5 [facility] 7158.0 pg/mL Critically high <=1800.0 [facility] 22.6 pg/mL 4.0-51.3 [facility] 2.2 g/dL Low 3.4-5.0 [facility] 104 U/L 46-116 [facility] 16 U/L 14-59 [facility] 21 U/L 15-37 [facility] 22.6 [facility] 31.0 mg/dL High 7.0-18.0 [facility] 8.4 mg/dL Low 8.5-10.1 [facility] 106 mmol/L 98-107 [facility] 30.7 mmol/L 21.0-32.0 [facility] 1.37 mg/dL High 0.55-1.02 [facility] 45 Low >=60 mL/min/1.73 m 2 [facility] 117 mg/dL High 74-106 [facility] 4.2 mmol/L 3.5-5.1 [facility] 143 mmol/L 136-145 [facility] 0.5 mg/dL 0.2-1.0 [facility] 7.3 g/dL 6.4-8.2 [facility] Platelet mean volume Auto (B ld) [Entitic vol]Ordered By: Jarred Galan on 06-28-2025 Platelet mean volume (Bld) [Entitic vol] 10.9 fL 9.5-13.5 [facility] Platelets Auto (Bld) [#/Vol] Ordered By: Jarred Galan on 06-28-2025 Platelets (Bld) [#/Vol] 158 10 3/uL 150-450 [facility] RBC Auto (Bld) [#/Vol]Ordere d By: Jarred Galan on 06-28-2025 RBC (Bld) [#/Vol] 3.80 10 6/uL Low 4.20-5.40 [facility] Serum or plasma albumin/glob ulin mass ratioOrdered By: Jarred Galan on 06-28-2025 Albumin/Globulin [Mass ratio] 0.4 {ratio} [facility] Serum or plasma anion gap de terminationOrdered By: Jarred Galan on 06-28-2025 Anion gap [Moles/Vol] 10.5 mmol/L [facility] Erythrocyte distribution wid th Auto (RBC) [Ratio]Ordered By: Outside Provider on 06-19-2025 Erythrocyte distribution width (RBC) [Ratio] 15.8 % High 11.0-15.0 [facility] Glomerular filtration rate ( GFR) estimation in non- AmericanOrdered By: Outside Provider on 06-19-2025 GFR/1.73 sq M.predicted among non-blacks MDRD (S/P/Bld) [Vol rate/Area] 27 mL/min/{1.73_m2} Low >=60 mL/min/1.73 m 2 [facility] Hematocrit Auto (Bld) [Volum e fraction]Ordered By: Outside Provider on 06-19-2025 Hematocrit (Bld) [Volume fraction] 33.5 % Low 36.0-48.0 [facility] Hemoglobin [Mass/volume] in BloodOrdered By: Outside Provider on 06-19-2025 Hemoglobin (Bld) [Mass/Vol] 11.0 g/dL Low 12.0-16.0 [facility] Leukocytes [#/volume] correc gali for nucleated erythrocytes in Blood by Automated counOrdered By: Outside Provider on 06-19-2025 WBC corrected for nucl RBC Auto (Bld) [#/Vol] 6.5 10 3/uL 4.0-11.0 [facility] MCH Auto (RBC) [Entitic mass ]Ordered By: Outside Provider on 06-19-2025 MCH (RBC) [Entitic mass] 30.1 pg 26.7-34.0 [facility] MCHC Auto (RBC) [Mass/Vol]Or dered By: Outside Provider on 06-19-2025 MCHC (RBC) [Mass/Vol] 32.8 g/dL 29.9-35.2 [facility] MCV Auto (RBC) [Entitic vol] Ordered By: Outside Provider on 06-19-2025 MCV (RBC) [Entitic vol] 91.5 fL 81.0-99.0 [facility] No Panel InformationOrdered By: Outside Provider on 06-19-2025 9659.0 pg/mL Critically high <=1800.0 [facility] 29.7 pg/mL 4.0-51.3 [facility] 1.5 mg/dL Low 1.8-2.4 [facility] 17.7 [facility] 32.0 mg/dL High 7.0-18.0 [facility] 8.5 mg/dL 8.5-10.1 [facility] 106 mmol/L 98-107 [facility] 33.4 mmol/L High 21.0-32.0 [facility] 1.81 mg/dL High 0.55-1.02 [facility] 33 Low >=60 mL/min/1.73 m 2 [facility] 134 mg/dL High 74-106 [facility] 3.3 mmol/L Low 3.5-5.1 [facility] 145 mmol/L 136-145 [facility] Platelet mean volume Auto (B ld) [Entitic vol]Ordered By: Outside Provider on 06-19-2025 Platelet mean volume (Bld) [Entitic vol] 10.2 fL 9.5-13.5 [facility] Platelets Auto (Bld) [#/Vol] Ordered By: Outside Provider on 06-19-2025 Platelets (Bld) [#/Vol] 244 10 3/uL 150-450 [facility] RBC Auto (Bld) [#/Vol]Ordere d By: Outside Provider on 06-19-2025 RBC (Bld) [#/Vol] 3.66 10 6/uL Low 4.20-5.40 [facility] Serum or plasma anion gap de terminationOrdered By: Outside Provider on 06-19-2025 Anion gap [Moles/Vol] 8.9 mmol/L [facility] Alanine aminotransferase [En zymatic activity/volume] in Serum or PlasmaOrdered By: Shantel Steven on 06-15-2025 ALT [Catalytic activity/Vol] 11 U/L 7-52 [facility] Comment on above: Performed By: #### A 1C [facility] eA #### [facility] [address] [place] [address] Albumin [Mass/volume] in Ser um or Plasma by Bromocresol green (BCG) dye binding methoOrdered By: Shantel Steven on 06-15-2025 Albumin BCG dye [Mass/Vol] 2.8 g/dL Low 3.5-5.7 [facility] Alkaline phosphatase [Enzyma tic activity/volume] in Serum or PlasmaOrdered By: Shantel Steven on 06-15-2025 ALP [Catalytic activity/Vol] 103 U/L 34-104 [facility] Comment on above: Result Comment: PERF ORMED BY: [place] [address] PATHOLOGIST [employer] OPERATOR SIMON LINTON M.D. Performed By: #### A [facility] eA #### [address] Aspartate aminotransferase [ Enzymatic activity/volume] in Serum or PlasmaOrdered By: Shantel Steven on 06-15-2025 AST [Catalytic activity/Vol] 13 U/L 13-39 [facility] Comment on above: Performed By: #### [facility] e[facility] #### [place] [address] [place] Bilirubin.total [Mass/volume ] in Serum or PlasmaOrdered By: Shantel Steven on 06-15-2025 Bilirubin [Mass/Vol] 0.5 mg/dL 0.3-1.0 [facility] Comment on above: Performed By: #### A [facility]C [facility] e[facility] #### [place] [address] [place] Calcium [Mass/volume] in Ser um or PlasmaOrdered By: Shantel Steven on 06-15-2025 Calcium [Mass/Vol] 8.3 mg/dL Low 8.6-10.3 [facility] Comment on above: Performed By: #### A [facility] e[facility] #### [facility] [address] [place] [address] [place] Carbon dioxide, total [Moles /volume] in Serum or PlasmaOrdered By: Shantel Steven on 06-15-2025 CO2 [Moles/Vol] 31.9 mmol/L High 21.0-31.0 [facility] Comment on above: Performed By: #### A [facility] e[facility] #### [facility] [address] [place] [address] [place] Chloride [Moles/volume] in S oziel or PlasmaOrdered By: Shantel Steven on 06-15-2025 Chloride [Moles/Vol] 103 mmol/L 98-107 [facility] Comment on above: Performed By: #### A [facility] e[facility] #### [address] Comprehensive Metabolic Pane daniele 06-15-2025 Albumin [Mass/Vol] 2.8 g/dL Low 3.5-5.7 [facility] Comment on above: Performed By: #### A [facility] e[facility] #### [place] [address] [place] GFR/1.73 sq M.predicted MDRD (S/P/Bld) [Vol rate/Area] 38.841 mL/min/{1.73_m2} Normal [facility] Comment on above: Performed By: #### A [facility] e[facility] #### [place] [address] [place] Creatinine [Mass/volume] in Serum or PlasmaOrdered By: Shantel Steven on 06-15-2025 Creatinine [Mass/Vol] 1.39 mg/dL High 0.60-1.20 [facility] Comment on above: Performed By: #### A [facility] #### [place] [address] [place] Glucose [Mass/volume] in Ser um or PlasmaOrdered By: Shantel Steven on 06-15-2025 Glucose [Mass/Vol] 235 mg/dL High 70-100 [facility] Comment on above: Result Comment: [place] Glucose Reference Range is dependent on time and content of last meal. Glucose of more than 200 mg/dL in a nonstressed, ambulatory subject supports the diagnosis of Diabetes Mellitus. ADA recommended reference range Performed By: #### [facility] e[facility] #### [address] No Panel InformationOrdered By: Shantel Steven on 06-15-2025 38.841 mL/Min [facility] N/A [facility] Potassium [Moles/volume] in Serum or PlasmaOrdered By: Shantel Steven on 06-15-2025 Potassium [Moles/Vol] 3.7 mmol/L 3.5-5.1 [facility] Comment on above: Performed By: #### [facility] #### [address] Protein [Mass/volume] in Ser um or PlasmaOrdered By: Shantel Steven on 06-15-2025 Protein [Mass/Vol] 6.3 g/dL Low 6.4-8.9 [facility] Comment on above: Performed By: #### [facility] #### [address] Serum globulin measurement b y calculation (mass/volume)Ordered By: Shantel Steven on 06-15-2025 Globulin (S) [Mass/Vol] 3.5 g/dL [facility] Comment on above: Performed By: #### A [facility] #### [address] Serum or plasma albumin/glob ulin mass ratioOrdered By: Shantel Steven on 06-15-2025 Albumin/Globulin [Mass ratio] 0.8 {ratio} [facility] Comment on above: Performed By: #### [facility] #### [address] Serum or plasma anion gap de terminationOrdered By: Shantel Steven on 06-15-2025 Anion gap [Moles/Vol] 9.8 mmol/L 6.0-15.0 [facility] Comment on above: Performed By: #### A [facility] e[facility] #### [facility] [address] Sodium [Moles/volume] in Ser um or PlasmaOrdered By: Shantel Steven on 06-15-2025 Sodium [Moles/Vol] 141 mmol/L 136-145 [facility] Comment on above: Performed By: #### A [facility] #### [facility] [address] Urea nitrogen [Mass/volume] in Serum or PlasmaOrdered By: Shantel Steven on 06-15-2025 Urea nitrogen [Mass/Vol] 31 mg/dL High 7-25 [facility] Comment on above: Performed By: #### A [facility] #### [facility] [address] Basophils Auto (Bld) [#/Vol] Ordered By: Osbaldo Marlow on 06-10-2025 Basophils (Bld) [#/Vol] 0.1 10 3/uL 0.0-0.1 [facility] Basophils/100 WBC Auto (Bld) Ordered By: Osbaldo Marlow on 06-10-2025 Basophils/100 WBC (Bld) 1.1 % 0.2-2.0 [facility] Eosinophils/100 WBC Auto (Bl d)Ordered By: Osbaldo Marlow on 06-10-2025 Eosinophils/100 WBC (Bld) 2.1 % 0.9-7.0 [facility] Erythrocyte distribution wid th Auto (RBC) [Ratio]Ordered By: Osbaldo Marlow on 06-10-2025 Erythrocyte distribution width (RBC) [Ratio] 16.4 % High 11.0-15.0 [facility] Estimated glomerular filtrat ion rate (GFR) non- AmericanOrdered By: Osbaldo Marlow on 06-10-2025 GFR/1.73 sq M.predicted among non-blacks MDRD (S/P/Bld) [Vol rate/Area] 27 mL/min/{1.73_m2} Low >=60 mL/min/1.73 m 2 [facility] Globulin Calc (S) [Mass/Vol] Ordered By: Osbaldo Marlow on 06-10-2025 Globulin (S) [Mass/Vol] 4.6 g/dL [facility] Hematocrit Auto (Bld) [Volum e fraction]Ordered By: Osbaldo Marlow on 06-10-2025 Hematocrit (Bld) [Volume fraction] 31.3 % Low 36.0-48.0 [facility] Hemoglobin [Mass/volume] in BloodOrdered By: Osbaldo Marlow on 06-10-2025 Hemoglobin (Bld) [Mass/Vol] 10.1 g/dL Low 12.0-16.0 [facility] Leukocytes [#/volume] correc gali for nucleated erythrocytes in Blood by Automated counOrdered By: Osbaldo Marlow on 06-10-2025 WBC corrected for nucl RBC Auto (Bld) [#/Vol] 9.0 10 3/uL 4.0-11.0 [facility] Lymphocytes Auto (Bld) [#/Vo l]Ordered By: Osbaldo Marlow on 06-10-2025 Lymphocytes (Bld) [#/Vol] 1.4 10 3/uL 1.2-3.8 [facility] Lymphocytes/100 WBC Auto (Bl d)Ordered By: Osbaldo Marlow on 06-10-2025 Lymphocytes/100 WBC (Bld) 15.0 % Low 20.5-60.0 [facility] MCH Auto (RBC) [Entitic mass ]Ordered By: Osbaldo Marlow on 06-10-2025 MCH (RBC) [Entitic mass] 29.6 pg 26.7-34.0 [facility] MCHC Auto (RBC) [Mass/Vol]Or dered By: Osbaldo Marlow on 06-10-2025 MCHC (RBC) [Mass/Vol] 32.3 g/dL 29.9-35.2 [facility] MCV Auto (RBC) [Entitic vol] Ordered By: Osbaldo Marlow on 06-10-2025 MCV (RBC) [Entitic vol] 91.8 fL 81.0-99.0 [facility] Monocytes Auto (Bld) [#/Vol] Ordered By: Osbaldo Marlow on 06-10-2025 Monocytes (Bld) [#/Vol] 0.5 10 3/uL 0.3-0.8 [facility] Monocytes/100 WBC Auto (Bld) Ordered By: Drewrudy Marlow on 06-10-2025 Monocytes/100 WBC (Bld) 5.6 % 1.7-12.0 [facility] Neutrophils Auto (Bld) [#/Vo l]Ordered By: Drewrudy Marlow on 06-10-2025 Neutrophils (Bld) [#/Vol] 6.8 10 3/uL High 1.4-6.5 [facility] Neutrophils/100 WBC Auto (Bl d)Ordered By: Osbaldo Marlow on 06-10-2025 Neutrophils/100 WBC (Bld) 75.9 % High 43.0-75.0 [facility] No Panel InformationOrdered By: Osbaldo Marlow on 06-10-2025 2.0 mg/dL 1.8-2.4 [facility] 4.4 mg/dL 2.6-4.7 [facility] 1.7 g/dL Low 3.4-5.0 [facility] 0.2 10 3/uL 0.0-0.7 [facility] 96 U/L 46-116 [facility] 14 U/L 14-59 [facility] 15 U/L 15-37 [facility] 16.6 [facility] 0.03 10 3/uL 0.00-0.03 [facility] 30.0 mg/dL High 7.0-18.0 [facility] 0.3 % 0.0-0.5 [facility] 8.2 mg/dL Low 8.5-10.1 [facility] 108 mmol/L High 98-107 [facility] 30.5 mmol/L 21.0-32.0 [facility] 1.81 mg/dL High 0.55-1.02 [facility] 33 Low >=60 mL/min/1.73 m 2 [facility] 117 mg/dL High 74-106 [facility] 3.3 mmol/L Low 3.5-5.1 [facility] 146 mmol/L High 136-145 [facility] 0.4 mg/dL 0.2-1.0 [facility] 6.3 g/dL Low 6.4-8.2 [facility] Platelet mean volume Auto (B ld) [Entitic vol]Ordered By: Osbaldo Marlow on 06-10-2025 Platelet mean volume (Bld) [Entitic vol] 10.0 fL 9.5-13.5 [facility] Platelets Auto (Bld) [#/Vol] Ordered By: Osbaldo Marlow on 06-10-2025 Platelets (Bld) [#/Vol] 248 10 3/uL 150-450 [facility] RBC Auto (Bld) [#/Vol]Ordere d By: Osbaldo Marlow on 06-10-2025 RBC (Bld) [#/Vol] 3.41 10 6/uL Low 4.20-5.40 [facility] Serum or plasma albumin/glob ulin mass ratioOrdered By: Osbaldo Marlow on 06-10-2025 Albumin/Globulin [Mass ratio] 0.4 {ratio} [facility] Serum or plasma anion gap de terminationOrdered By: Osbaldo Marlow on 06-10-2025 Anion gap [Moles/Vol] 10.8 mmol/L [facility] Basophils Auto (Bld) [#/Vol] Ordered By: Osbaldo Marlow on 06-09-2025 Basophils (Bld) [#/Vol] 0.1 10 3/uL 0.0-0.1 [facility] Basophils/100 WBC Auto (Bld) Ordered By: Osbaldo Marlow on 06-09-2025 Basophils/100 WBC (Bld) 1.1 % 0.2-2.0 [facility] Eosinophils/100 WBC Auto (Bl d)Ordered By: Osbaldo Marlow on 06-09-2025 Eosinophils/100 WBC (Bld) 1.8 % 0.9-7.0 [facility] Erythrocyte distribution wid th Auto (RBC) [Ratio]Ordered By: Osbaldo Marlow on 06-09-2025 Erythrocyte distribution width (RBC) [Ratio] 15.9 % High 11.0-15.0 [facility] Estimated glomerular filtrat ion rate (GFR) non- AmericanOrdered By: Cheng Aviles on 06-09-2025 GFR/1.73 sq M.predicted among non-blacks MDRD (S/P/Bld) [Vol rate/Area] 33 mL/min/{1.73_m2} Low >=60 mL/min/1.73 m 2 [facility] Globulin Calc (S) [Mass/Vol] Ordered By: Cheng Aviles on 06-09-2025 Globulin (S) [Mass/Vol] 4.9 g/dL [facility] Hematocrit Auto (Bld) [Volum e fraction]Ordered By: Osbaldo Marlow on 06-09-2025 Hematocrit (Bld) [Volume fraction] 31.8 % Low 36.0-48.0 [facility] Hemoglobin [Mass/volume] in BloodOrdered By: Osbaldo Marlow on 06-09-2025 Hemoglobin (Bld) [Mass/Vol] 10.4 g/dL Low 12.0-16.0 [facility] Leukocytes [#/volume] correc gali for nucleated erythrocytes in Blood by Automated counOrdered By: Osbaldo Marlow on 06-09-2025 WBC corrected for nucl RBC Auto (Bld) [#/Vol] 8.3 10 3/uL 4.0-11.0 [facility] Lymphocytes Auto (Bld) [#/Vo l]Ordered By: Osbaldo Marlow on 06-09-2025 Lymphocytes (Bld) [#/Vol] 1.4 10 3/uL 1.2-3.8 [facility] Lymphocytes/100 WBC Auto (Bl d)Ordered By: Osbaldo Marlow on 06-09-2025 Lymphocytes/100 WBC (Bld) 17.3 % Low 20.5-60.0 [facility] MCH Auto (RBC) [Entitic mass ]Ordered By: Osbaldo Marlow on 06-09-2025 MCH (RBC) [Entitic mass] 29.3 pg 26.7-34.0 [facility] MCHC Auto (RBC) [Mass/Vol]Or dered By: Osbaldo Marlow on 06-09-2025 MCHC (RBC) [Mass/Vol] 32.7 g/dL 29.9-35.2 [facility] MCV Auto (RBC) [Entitic vol] Ordered By: Osbaldo Marlow on 06-09-2025 MCV (RBC) [Entitic vol] 89.6 fL 81.0-99.0 [facility] Monocytes Auto (Bld) [#/Vol] Ordered By: Osbaldo Marlow on 06-09-2025 Monocytes (Bld) [#/Vol] 0.5 10 3/uL 0.3-0.8 [facility] Monocytes/100 WBC Auto (Bld) Ordered By: Osbaldo Marlow on 06-09-2025 Monocytes/100 WBC (Bld) 6.5 % 1.7-12.0 [facility] Neutrophils Auto (Bld) [#/Vo l]Ordered By: Osbaldo Marlow on 06-09-2025 Neutrophils (Bld) [#/Vol] 6.1 10 3/uL 1.4-6.5 [facility] Neutrophils/100 WBC Auto (Bl d)Ordered By: Osbaldo Marlow on 06-09-2025 Neutrophils/100 WBC (Bld) 72.9 % 43.0-75.0 [facility] No Panel InformationOrdered By: Osbaldo Marlow on 06-09-2025 1.3 mg/dL Low 1.8-2.4 [facility] 3.8 mg/dL 2.6-4.7 [facility] 0.2 10 3/uL 0.0-0.7 [facility] 0.03 10 3/uL 0.00-0.03 [facility] 0.4 % 0.0-0.5 [facility] No Panel InformationOrdered By: Cheng Aviles on 06-09-2025 1.7 g/dL Low 3.4-5.0 [facility] 104 U/L 46-116 [facility] 14 U/L 14-59 [facility] 13 U/L Low 15-37 [facility] 18.3 [facility] 28.0 mg/dL High 7.0-18.0 [facility] 8.1 mg/dL Low 8.5-10.1 [facility] 106 mmol/L 98-107 [facility] 29.8 mmol/L 21.0-32.0 [facility] 1.53 mg/dL High 0.55-1.02 [facility] 40 Low >=60 mL/min/1.73 m 2 [facility] 79 mg/dL 74-106 [facility] 2.7 mmol/L Critically low 3.5-5.1 [facility] 146 mmol/L High 136-145 [facility] 0.4 mg/dL 0.2-1.0 [facility] 6.6 g/dL 6.4-8.2 [facility] Platelet mean volume Auto (B ld) [Entitic vol]Ordered By: Osbaldo Marlow on 06-09-2025 Platelet mean volume (Bld) [Entitic vol] 11.2 fL 9.5-13.5 [facility] Platelets Auto (Bld) [#/Vol] Ordered By: Osbaldo Marlow on 06-09-2025 Platelets (Bld) [#/Vol] 222 10 3/uL 150-450 [facility] RBC Auto (Bld) [#/Vol]Ordere d By: Osbaldo Marlow on 06-09-2025 RBC (Bld) [#/Vol] 3.55 10 6/uL Low 4.20-5.40 [facility] Serum or plasma albumin/glob ulin mass ratioOrdered By: Cheng Aviles on 06-09-2025 Albumin/Globulin [Mass ratio] 0.3 {ratio} [facility] Serum or plasma anion gap de terminationOrdered By: Cheng Aviles on 06-09-2025 Anion gap [Moles/Vol] 12.9 mmol/L [facility] Basophils Auto (Bld) [#/Vol] Ordered By: Jarred Galan on 06-08-2025 Basophils (Bld) [#/Vol] 0.1 10 3/uL 0.0-0.1 [facility] Basophils/100 WBC Auto (Bld) Ordered By: Jarred Galan on 06-08-2025 Basophils/100 WBC (Bld) 1.2 % 0.2-2.0 [facility] Eosinophils/100 WBC Auto (Bl d)Ordered By: Jarred Galan on 06-08-2025 Eosinophils/100 WBC (Bld) 1.9 % 0.9-7.0 [facility] Erythrocyte distribution wid th Auto (RBC) [Ratio]Ordered By: Jarred Galan on 06-08-2025 Erythrocyte distribution width (RBC) [Ratio] 16.1 % High 11.0-15.0 [facility] Estimated glomerular filtrat ion rate (GFR) non- AmericanOrdered By: Jarred Galan on 06-08-2025 GFR/1.73 sq M.predicted among non-blacks MDRD (S/P/Bld) [Vol rate/Area] 29 mL/min/{1.73_m2} Low >=60 mL/min/1.73 m 2 [facility] Hematocrit Auto (Bld) [Volum e fraction]Ordered By: Jarred Galan on 06-08-2025 Hematocrit (Bld) [Volume fraction] 35.3 % Low 36.0-48.0 [facility] Hemoglobin [Mass/volume] in BloodOrdered By: Jarred Galan on 06-08-2025 Hemoglobin (Bld) [Mass/Vol] 11.4 g/dL Low 12.0-16.0 [facility] Leukocytes [#/volume] correc gali for nucleated erythrocytes in Blood by Automated counOrdered By: Jarred Galan on 06-08-2025 WBC corrected for nucl RBC Auto (Bld) [#/Vol] 8.5 10 3/uL 4.0-11.0 [facility] Lymphocytes Auto (Bld) [#/Vo l]Ordered By: Jarred Galan on 06-08-2025 Lymphocytes (Bld) [#/Vol] 1.1 10 3/uL Low 1.2-3.8 [facility] Lymphocytes/100 WBC Auto (Bl d)Ordered By: Jarred Galan on 06-08-2025 Lymphocytes/100 WBC (Bld) 13.3 % Low 20.5-60.0 [facility] MCH Auto (RBC) [Entitic mass ]Ordered By: Jarred Galan on 06-08-2025 MCH (RBC) [Entitic mass] 29.2 pg 26.7-34.0 [facility] MCHC Auto (RBC) [Mass/Vol]Or dered By: Jarred Galan on 06-08-2025 MCHC (RBC) [Mass/Vol] 32.3 g/dL 29.9-35.2 [facility] MCV Auto (RBC) [Entitic vol] Ordered By: Jarred Galan on 06-08-2025 MCV (RBC) [Entitic vol] 90.3 fL 81.0-99.0 [facility] Monocytes Auto (Bld) [#/Vol] Ordered By: Jarred Galan on 06-08-2025 Monocytes (Bld) [#/Vol] 0.4 10 3/uL 0.3-0.8 [facility] Monocytes/100 WBC Auto (Bld) Ordered By: Jarred Galan on 06-08-2025 Monocytes/100 WBC (Bld) 5.2 % 1.7-12.0 [facility] Neutrophils Auto (Bld) [#/Vo l]Ordered By: Jarred Galan on 06-08-2025 Neutrophils (Bld) [#/Vol] 6.6 10 3/uL High 1.4-6.5 [facility] Neutrophils/100 WBC Auto (Bl d)Ordered By: Jarred Galan on 06-08-2025 Neutrophils/100 WBC (Bld) 78.2 % High 43.0-75.0 [facility] No Panel InformationOrdered By: Jarred Galan on 06-08-2025 SEEN #/LPF Abnormal NONE SEEN [facility] None Seen #/HPF None Seen [facility] TRACE #/HPF Abnormal NONE SEEN [facility] MODERATE [facility] CLEAR CLEAR [facility] LT. YELLOW YELLOW [facility] 250 mg/dL Abnormal NEGATIVE [facility] SMALL Abnormal NONE SEEN [facility] 6.5 5.0-9.0 [facility] >=300 mg/dL Abnormal NEG/TRACE [facility] 0-2 #/HPF 0-2 [facility] 1.020 1.005-1.025 [facility] FEW #/LPF Abnormal NONE/RARE [facility] RARE #/LPF Abnormal NONE SEEN [facility] 0.2 EU/dL 0.2-1.0 [facility] 2-5 #/HPF Abnormal NONE SEEN [facility] Negative NEGATIVE [facility] 85521.0 pg/mL Critically high <=1800.0 [facility] 26.7 pg/mL 4.0-51.3 [facility] 0.7 mmol/L 0.4-2.0 [facility] 17.8 [facility] 30.0 mg/dL High 7.0-18.0 [facility] 0.2 10 3/uL 0.0-0.7 [facility] 8.7 mg/dL 8.5-10.1 [facility] 105 mmol/L 98-107 [facility] 30.5 mmol/L 21.0-32.0 [facility] 1.69 mg/dL High 0.55-1.02 [facility] 0.02 10 3/uL 0.00-0.03 [facility] 35 Low >=60 mL/min/1.73 m 2 [facility] 0.2 % 0.0-0.5 [facility] 177 mg/dL High 74-106 [facility] 3.2 mmol/L Low 3.5-5.1 [facility] 144 mmol/L 136-145 [facility] Platelet mean volume Auto (B ld) [Entitic vol]Ordered By: Jarred Galan on 06-08-2025 Platelet mean volume (Bld) [Entitic vol] 9.8 fL 9.5-13.5 [facility] Platelets Auto (Bld) [#/Vol] Ordered By: Jarred Galan on 06-08-2025 Platelets (Bld) [#/Vol] 291 10 3/uL 150-450 [facility] RBC Auto (Bld) [#/Vol]Ordere d By: Jarred Galan on 06-08-2025 RBC (Bld) [#/Vol] 3.91 10 6/uL Low 4.20-5.40 [facility] Serum or plasma anion gap de terminationOrdered By: Jarred Galan on 06-08-2025 Anion gap [Moles/Vol] 11.7 mmol/L [facility] Urine Cultureon 06-02-2025 Bacteria identified Cx Nom (U) 50,000 colonies/ml mixed bacterial skin contaminants 2 Days PERFORMED BY: [facility] [id number] [place] [address] PATHOLOGIST [employer] OPERATOR SIMON LINTON M.D. Normal [facility] Comment on above: Performed By: #### M Bela, BMP #### [address] Urine cultureOrdered By: Alessia Steven on 06-02-2025 Bacteria identified Cx Nom (U) 2 Days [facility] Estimated glomerular filtrat ion rate (GFR) non- AmericanOrdered By: Monica Stewart on 05-31-2025 GFR/1.73 sq M.predicted among non-blacks MDRD (S/P/Bld) [Vol rate/Area] 31 mL/min/{1.73_m2} Low >=60 mL/min/1.73 m 2 [facility] No Panel InformationOrdered By: Monica Stewart on 05-31-2025 31.3 [facility] 50.0 mg/dL High 7.0-18.0 [facility] 8.2 mg/dL Low 8.5-10.1 [facility] 106 mmol/L 98-107 [facility] 26.2 mmol/L 21.0-32.0 [facility] 1.60 mg/dL High 0.55-1.02 [facility] 38 Low >=60 mL/min/1.73 m 2 [facility] 103 mg/dL 74-106 [facility] 3.8 mmol/L 3.5-5.1 [facility] 142 mmol/L 136-145 [facility] Serum or plasma anion gap de terminationOrdered By: Monica Stewart on 05-31-2025 Anion gap [Moles/Vol] 13.6 mmol/L [facility] Erythrocyte distribution wid th Auto (RBC) [Ratio]Ordered By: Monica Stewart on 05-30-2025 Erythrocyte distribution width (RBC) [Ratio] 17.2 % High 11.0-15.0 [facility] Estimated glomerular filtrat ion rate (GFR) non- AmericanOrdered By: Monica Stewart on 05-30-2025 GFR/1.73 sq M.predicted among non-blacks MDRD (S/P/Bld) [Vol rate/Area] 28 mL/min/{1.73_m2} Low >=60 mL/min/1.73 m 2 [facility] Hematocrit Auto (Bld) [Volum e fraction]Ordered By: Monica Stewart on 05-30-2025 Hematocrit (Bld) [Volume fraction] 32.9 % Low 36.0-48.0 [facility] Hemoglobin [Mass/volume] in BloodOrdered By: Monica Stewart on 05-30-2025 Hemoglobin (Bld) [Mass/Vol] 10.6 g/dL Low 12.0-16.0 [facility] Leukocytes [#/volume] correc gali for nucleated erythrocytes in Blood by Automated counOrdered By: Monica Stewart on 05-30-2025 WBC corrected for nucl RBC Auto (Bld) [#/Vol] 18.7 10 3/uL High 4.0-11.0 [facility] MCH Auto (RBC) [Entitic mass ]Ordered By: Monica Stewart on 05-30-2025 MCH (RBC) [Entitic mass] 29.7 pg 26.7-34.0 [facility] MCHC Auto (RBC) [Mass/Vol]Or dered By: Monica Stewart on 05-30-2025 MCHC (RBC) [Mass/Vol] 32.2 g/dL 29.9-35.2 [facility] MCV Auto (RBC) [Entitic vol] Ordered By: Monica Stewart on 05-30-2025 MCV (RBC) [Entitic vol] 92.2 fL 81.0-99.0 [facility] No Panel InformationOrdered By: Monica Stewart on 05-30-2025 1.8 mg/dL 1.8-2.4 [facility] 26.4 [facility] 47.0 mg/dL High 7.0-18.0 [facility] 8.5 mg/dL 8.5-10.1 [facility] 106 mmol/L 98-107 [facility] 27.5 mmol/L 21.0-32.0 [facility] 1.78 mg/dL High 0.55-1.02 [facility] 33 Low >=60 mL/min/1.73 m 2 [facility] 97 mg/dL 74-106 [facility] 4.0 mmol/L 3.5-5.1 [facility] 143 mmol/L 136-145 [facility] Platelet mean volume Auto (B ld) [Entitic vol]Ordered By: Monica Stewart on 05-30-2025 Platelet mean volume (Bld) [Entitic vol] 10.3 fL 9.5-13.5 [facility] Platelets Auto (Bld) [#/Vol] Ordered By: Monica Stewart on 05-30-2025 Platelets (Bld) [#/Vol] 183 10 3/uL 150-450 [facility] RBC Auto (Bld) [#/Vol]Ordere d By: Monica Stewart on 05-30-2025 RBC (Bld) [#/Vol] 3.57 10 6/uL Low 4.20-5.40 [facility] Serum or plasma anion gap de terminationOrdered By: Monica Stewart on 05-30-2025 Anion gap [Moles/Vol] 13.5 mmol/L [facility] Basophils/100 WBC Manual cnt (Bld)Ordered By: Monica Stewart on 05-29-2025 Basophils/100 WBC (Bld) 0.0 % Low 0.2-2.0 [facility] Eosinophils/100 WBC Manual c nt (Bld)Ordered By: Monica Stewart on 05-29-2025 Eosinophils/100 WBC (Bld) 0.0 % Low 0.9-7.0 [facility] Erythrocyte distribution wid th Auto (RBC) [Ratio]Ordered By: Monica Stewart on 05-29-2025 Erythrocyte distribution width (RBC) [Ratio] 16.6 % High 11.0-15.0 [facility] Estimated glomerular filtrat ion rate (GFR) non- AmericanOrdered By: Monica Stewart on 05-29-2025 GFR/1.73 sq M.predicted among non-blacks MDRD (S/P/Bld) [Vol rate/Area] 33 mL/min/{1.73_m2} Low >=60 mL/min/1.73 m 2 [facility] Glucose mean value [Mass/vol ume] in Blood Estimated from glycated hemoglobinOrdered By: Monica Stewart on 05-29-2025 Average glucose Estimated from glycated hemoglobin (Bld) [Mass/Vol] 209 mg/dL [facility] Hematocrit Auto (Bld) [Volum e fraction]Ordered By: Monica Stewart on 05-29-2025 Hematocrit (Bld) [Volume fraction] 32.2 % Low 36.0-48.0 [facility] Hemoglobin A1c percentageOrd ered By: Monica Stewart on 05-29-2025 HbA1c (Bld) [Mass fraction] 8.9 % High 4.5-6.2 [facility] Hemoglobin [Mass/volume] in BloodOrdered By: Monica Stewart on 05-29-2025 Hemoglobin (Bld) [Mass/Vol] 10.6 g/dL Low 12.0-16.0 [facility] Leukocytes [#/volume] correc gali for nucleated erythrocytes in Blood by Automated counOrdered By: Monica Stewart on 05-29-2025 WBC corrected for nucl RBC Auto (Bld) [#/Vol] 19.8 10 3/uL High 4.0-11.0 [facility] MCH Auto (RBC) [Entitic mass ]Ordered By: Monica Stewart on 05-29-2025 MCH (RBC) [Entitic mass] 29.9 pg 26.7-34.0 [facility] MCHC Auto (RBC) [Mass/Vol]Or dered By: Monica Stewart on 05-29-2025 MCHC (RBC) [Mass/Vol] 32.9 g/dL 29.9-35.2 [facility] MCV Auto (RBC) [Entitic vol] Ordered By: Monica Stewart on 05-29-2025 MCV (RBC) [Entitic vol] 91.0 fL 81.0-99.0 [facility] No Panel InformationOrdered By: Monica Stewart on 05-29-2025 1.2 mg/dL Low 1.8-2.4 [facility] 0.00 10 3/uL 0.00-0.70 [facility] 27.5 [facility] 42.0 mg/dL High 7.0-18.0 [facility] 8.3 mg/dL Low 8.5-10.1 [facility] 105 mmol/L 98-107 [facility] 0.59 10 3/uL Low 1.20-3.80 [facility] 28.4 mmol/L 21.0-32.0 [facility] 3.0 % Low 20.5-60.0 [facility] 1.53 mg/dL High 0.55-1.02 [facility] 1.18 10 3/uL High 0.30-0.80 [facility] 40 Low >=60 mL/min/1.73 m 2 [facility] 6.0 % 1.7-12.0 [facility] 18.01 10 3/uL High 1.4-6.5 [facility] 130 mg/dL High 74-106 [facility] 3.8 mmol/L 3.5-5.1 [facility] 143 mmol/L 136-145 [facility] Platelet mean volume Auto (B ld) [Entitic vol]Ordered By: Monica Stewart on 05-29-2025 Platelet mean volume (Bld) [Entitic vol] 10.3 fL 9.5-13.5 [facility] Platelets Auto (Bld) [#/Vol] Ordered By: Monica Stewart on 05-29-2025 Platelets (Bld) [#/Vol] 208 10 3/uL 150-450 [facility] RBC Auto (Bld) [#/Vol]Ordere d By: Monica Stewart on 05-29-2025 RBC (Bld) [#/Vol] 3.54 10 6/uL Low 4.20-5.40 [facility] Segmented neutrophils/100 WB C Manual cnt (Bld)Ordered By: Monica Stewart on 05-29-2025 Segmented neutrophils/100 WBC (Bld) 91.0 % High 43.0-75.0 [facility] Serum or plasma anion gap de terminationOrdered By: Monica Stewart on 05-29-2025 Anion gap [Moles/Vol] 13.4 [facility] Bas[facility] Auto (Bld) [#/Vol] Ordered By: Analisa Bryant on 05-28-2025 Basophils (Bld) [#/Vol] 0.1 10 3/uL 0.0-0.1 [facility] Basophils/100 WBC Auto (Bld) Ordered By: Analisa Bryant on 05-28-2025 Basophils/100 WBC (Bld) 1.3 % 0.2-2.0 [facility] Eosinophils/100 WBC Auto (Bl d)Ordered By: Analisa Bryant on 05-28-2025 Eosinophils/100 WBC (Bld) 3.3 % 0.9-7.0 [facility] Erythrocyte distribution wid th Auto (RBC) [Ratio]Ordered By: Analisa Bryant on 05-28-2025 Erythrocyte distribution width (RBC) [Ratio] 16.9 % High 11.0-15.0 [facility] Estimated glomerular filtrat ion rate (GFR) non- AmericanOrdered By: Analisa Bryant on 05-28-2025 GFR/1.73 sq M.predicted among non-blacks MDRD (S/P/Bld) [Vol rate/Area] 34 mL/min/{1.73_m2} Low >=60 mL/min/1.73 m 2 [facility] Hematocrit Auto (Bld) [Volum e fraction]Ordered By: Analisa Bryant on 05-28-2025 Hematocrit (Bld) [Volume fraction] 34.4 % Low 36.0-48.0 [facility] Hemoglobin [Mass/volume] in BloodOrdered By: Analisa rByant 05-28-2025 Hemoglobin (Bld) [Mass/Vol] 11.2 g/dL Low 12.0-16.0 [facility] Leukocytes [#/volume] correc gali for nucleated erythrocytes in Blood by Automated counOrdered By: Analisa Bryant on 05-28-2025 WBC corrected for nucl RBC Auto (Bld) [#/Vol] 6.9 10 3/uL 4.0-11.0 [facility] Lymphocytes Auto (Bld) [#/Vo l]Ordered By: Analisa Bryant on 05-28-2025 Lymphocytes (Bld) [#/Vol] 1.4 10 3/uL 1.2-3.8 [facility] Lymphocytes/100 WBC Auto (Bl d)Ordered By: Analisa Bryant on 05-28-2025 Lymphocytes/100 WBC (Bld) 20.0 % Low 20.5-60.0 [facility] MCH Auto (RBC) [Entitic mass ]Ordered By: Analisa Bryant on 05-28-2025 MCH (RBC) [Entitic mass] 29.7 pg 26.7-34.0 [facility] MCHC Auto (RBC) [Mass/Vol]Or dered By: Analisa Bryant on 05-28-2025 MCHC (RBC) [Mass/Vol] 32.6 g/dL 29.9-35.2 [facility] MCV Auto (RBC) [Entitic vol] Ordered By: Analisa Bryant on 05-28-2025 MCV (RBC) [Entitic vol] 91.2 fL 81.0-99.0 [facility] Monocytes Auto (Bld) [#/Vol] Ordered By: Analisa Bryant on 05-28-2025 Monocytes (Bld) [#/Vol] 0.6 10 3/uL 0.3-0.8 [facility] Monocytes/100 WBC Auto (Bld) Ordered By: Analisa Bryant on 05-28-2025 Monocytes/100 WBC (Bld) 8.9 % 1.7-12.0 [facility] Neutrophils Auto (Bld) [#/Vo l]Ordered By: Analisa Bryant on 05-28-2025 Neutrophils (Bld) [#/Vol] 4.6 10 3/uL 1.4-6.5 [facility] Neutrophils/100 WBC Auto (Bl d)Ordered By: Analisa Bryant on 05-28-2025 Neutrophils/100 WBC (Bld) 66.4 % 43.0-75.0 [facility] No Panel InformationOrdered By: Analisa Bryant on 05-28-2025 NO [facility] SEEN #/LPF Abnormal NONE SEEN [facility] Seen #/HPF Abnormal None Seen [facility] RARE [facility] TRACE #/HPF Abnormal NONE SEEN [facility] Negative NEGATIVE [facility] SMALL Abnormal NEGATIVE [facility] CLEAR CLEAR [facility] LT. YELLOW YELLOW [facility] 100 mg/dL Abnormal NEGATIVE [facility] NONE SEEN NONE SEEN [facility] 7.0 5.0-9.0 [facility] >=300 mg/dL Abnormal NEG/TRACE [facility] 0-2 #/HPF Abnormal NONE SEEN [facility] 1.020 1.005-1.025 [facility] RARE #/LPF NONE/RARE [facility] 0.2 EU/dL 0.2-1.0 [facility] 6395.0 pg/mL Critically high <=1800.0 [facility] 18.7 pg/mL 4.0-51.3 [facility] 32.4 [facility] 48.0 mg/dL High 7.0-18.0 [facility] 0.2 10 3/uL 0.0-0.7 [facility] 8.5 mg/dL 8.5-10.1 [facility] 107 mmol/L 98-107 [facility] 29.3 mmol/L 21.0-32.0 [facility] 1.48 mg/dL High 0.55-1.02 [facility] 0.01 10 3/uL 0.00-0.03 [facility] 41 Low >=60 mL/min/1.73 m 2 [facility] 0.1 % 0.0-0.5 [facility] 64 mg/dL Low 74-106 [facility] 4.1 mmol/L 3.5-5.1 [facility] 143 mmol/L 136-145 [facility] Platelet mean volume Auto (B ld) [Entitic vol]Ordered By: Analisa Bryant on 05-28-2025 Platelet mean volume (Bld) [Entitic vol] 10.0 fL 9.5-13.5 [facility] Platelets Auto (Bld) [#/Vol] Ordered By: Analisa Bryant on 05-28-2025 Platelets (Bld) [#/Vol] 236 10 3/uL 150-450 [facility] RBC Auto (Bld) [#/Vol]Ordere d By: Analisa Bryant on 05-28-2025 RBC (Bld) [#/Vol] 3.77 10 6/uL Low 4.20-5.40 [facility] Serum or plasma anion gap de terminationOrdered By: Analisa Bryant on 05-28-2025 Anion gap [Moles/Vol] 10.8 mmol/L [facility] Basophils Auto (Bld) [#/Vol] Ordered By: Cheng Aviles on 05-11-2025 Basophils (Bld) [#/Vol] 0.1 10 3/uL 0.0-0.1 [facility] Basophils/100 WBC Auto (Bld) Ordered By: Cheng Aviles on 05-11-2025 Basophils/100 WBC (Bld) 1.2 % 0.2-2.0 [facility] Eosinophils/100 WBC Auto (Bl d)Ordered By: Cheng Aviles on 05-11-2025 Eosinophils/100 WBC (Bld) 2.7 % 0.9-7.0 [facility] Erythrocyte distribution wid th Auto (RBC) [Ratio]Ordered By: Cheng Aviles on 05-11-2025 Erythrocyte distribution width (RBC) [Ratio] 15.7 % High 11.0-15.0 [facility] Estimated glomerular filtrat ion rate (GFR) non- AmericanOrdered By: Rica Kaplan on 05-11-2025 GFR/1.73 sq M.predicted among non-blacks MDRD (S/P/Bld) [Vol rate/Area] 36 mL/min/{1.73_m2} Low >=60 mL/min/1.73 m 2 [facility] Hematocrit Auto (Bld) [Volum e fraction]Ordered By: Cheng Aviles on 05-11-2025 Hematocrit (Bld) [Volume fraction] 34.2 % Low 36.0-48.0 [facility] Hemoglobin [Mass/volume] in BloodOrdered By: Cheng Aviles on 05-11-2025 Hemoglobin (Bld) [Mass/Vol] 10.9 g/dL Low 12.0-16.0 [facility] Laboratory - Chemistry and C hemistry - challengeOrdered By: Rica Kaplan on 05-11-2025 Calcium [Mass/Vol] 8.6 mg/dL 8.5-10.1 [facility] Chloride [Moles/Vol] 107 mmol/L 98-107 [facility] CO2 [Moles/Vol] 27.7 mmol/L 21.0-32.0 [facility] Creatinine [Mass/Vol] 1.40 mg/dL High 0.55-1.02 [facility] GFR/1.73 sq M.predicted MDRD (S/P/Bld) [Vol rate/Area] 44 mL/min/{1.73_m2} Low >=60 mL/min/1.73 m 2 [facility] Glucose [Mass/Vol] 93 mg/dL 74-106 [facility] Potassium [Moles/Vol] 4.2 mmol/L 3.5-5.1 [facility] Sodium [Moles/Vol] 144 mmol/L 136-145 [facility] Urea nitrogen [Mass/Vol] 34.0 mg/dL High 7.0-18.0 [facility] Urea nitrogen/Creatinine [Mass ratio] 24.3 mg/mg [facility] Laboratory - Hematology and Cell countsOrdered By: Cheng Aviles on 05-11-2025 Immature granulocytes/100 WBC (Bld) 0.4 % 0.0-0.5 [facility] Leukocytes [#/volume] correc gali for nucleated erythrocytes in Blood by Automated counOrdered By: Cheng Aviles on 05-11-2025 WBC corrected for nucl RBC Auto (Bld) [#/Vol] 8.5 10 3/uL 4.0-11.0 [facility] Lymphocytes Auto (Bld) [#/Vo l]Ordered By: Cheng Aviles on 05-11-2025 Lymphocytes (Bld) [#/Vol] 1.4 10 3/uL 1.2-3.8 [facility] Lymphocytes/100 WBC Auto (Bl d)Ordered By: Cheng Aviles on 05-11-2025 Lymphocytes/100 WBC (Bld) 16.0 % Low 20.5-60.0 [facility] MCH Auto (RBC) [Entitic mass ]Ordered By: Cheng Aviles on 05-11-2025 MCH (RBC) [Entitic mass] 28.5 pg 26.7-34.0 [facility] MCHC Auto (RBC) [Mass/Vol]Or dered By: Cheng Aviles on 05-11-2025 MCHC (RBC) [Mass/Vol] 31.9 g/dL 29.9-35.2 [facility] MCV Auto (RBC) [Entitic vol] Ordered By: Cheng Aviles on 05-11-2025 MCV (RBC) [Entitic vol] 89.5 fL 81.0-99.0 [facility] Monocytes Auto (Bld) [#/Vol] Ordered By: Cheng Aviles on 05-11-2025 Monocytes (Bld) [#/Vol] 0.6 10 3/uL 0.3-0.8 [facility] Monocytes/100 WBC Auto (Bld) Ordered By: Cheng Aviles on 05-11-2025 Monocytes/100 WBC (Bld) 7.5 % 1.7-12.0 [facility] Neutrophils Auto (Bld) [#/Vo l]Ordered By: Cheng Aviles on 05-11-2025 Neutrophils (Bld) [#/Vol] 6.1 10 3/uL 1.4-6.5 [facility] Neutrophils/100 WBC Auto (Bl d)Ordered By: Cheng Aviles on 05-11-2025 Neutrophils/100 WBC (Bld) 72.2 % 43.0-75.0 [facility] No Panel InformationOrdered By: Cheng Aviles on 05-11-2025 Eosinophils # (Auto) 0.2 10 3/uL 0.0-0.7 [facility] Immature Granulocyte # (Auto) 0.03 10 3/uL 0.00-0.03 [facility] 0.2 10 3/uL 0.0-0.7 [facility] 0.03 10 3/uL 0.00-0.03 [facility] 0.4 % 0.0-0.5 [facility] No Panel InformationOrdered By: Rica Kaplan on 05-11-2025 24.3 [facility] 34.0 mg/dL High 7.0-18.0 [facility] 8.6 mg/dL 8.5-10.1 [facility] 107 mmol/L 98-107 [facility] 27.7 mmol/L 21.0-32.0 [facility] 1.40 mg/dL High 0.55-1.02 [facility] 44 Low >=60 mL/min/1.73 m 2 [facility] 93 mg/dL 74-106 [facility] 4.2 mmol/L 3.5-5.1 [facility] 144 mmol/L 136-145 [facility] Platelet mean volume Auto (B ld) [Entitic vol]Ordered By: Cheng Aviles on 05-11-2025 Platelet mean volume (Bld) [Entitic vol] 10.0 fL 9.5-13.5 [facility] Platelets Auto (Bld) [#/Vol] Ordered By: Cheng Aviles on 05-11-2025 Platelets (Bld) [#/Vol] 279 10 3/uL 150-450 [facility] RBC Auto (Bld) [#/Vol]Ordere d By: Cheng Aviles on 05-11-2025 RBC (Bld) [#/Vol] 3.82 10 6/uL Low 4.20-5.40 [facility] Serum or plasma anion gap de terminationOrdered By: Rica Kaplan on 05-11-2025 Anion gap [Moles/Vol] 13.5 mmol/L [facility] Telephoneon 05-07-2025 Telephone [id number] Joe Call 1945 F Date Provider Department Center 05/07/2025 DESHAWN [facility] V[facility] LAB [facility] HeartVAS Family History Problem Relation Age of Onset Heart disease Mother Heart attack Father Coronary artery disease Other Diabetes Other Polycystic kidney disease Other Family Status - Relation Status Age at Mother Father Sister Brother Other Normal [facility] Office Visiton 04-22-2025 Follow-up visit [id number] Joe Call Bela 1945 F Date Provider Department Center 04/22/2025 RICA DEAN Family History Problem Relation Age of Onset Heart disease Mother Heart attack Father Coronary artery disease Other Diabetes Other Polycystic kidney disease Other Family Status - Relation Status Age at Mother Father Sister Brother Other Level of Service:[address] [place] OFFICE/OUTPATIENT ESTABLISHED HIGH MDM 40 MIN Normal [facility] Alanine aminotransferase [En zymatic activity/volume] in Serum or PlasmaOrdered By: Jorge Calix on 03-12-2025 ALT [Catalytic activity/Vol] Alanine aminotransferase [Enzymatic activity/volume] in Serum or Plasma [facility] ALT [Catalytic activity/Vol] 9 U/L Normal [facility] Comment on above: Performed By: #### M G, BMP #### [facility] [address] [place] [address] [place] Albumin [Mass/volume] in Ser um or Plasma by Bromocresol green (BCG) dye binding methoOrdered By: Jorge Calix on 03-12-2025 Albumin BCG dye [Mass/Vol] Albumin [Mass/volume] in Serum or Plasma by Bromocresol green (BCG) dye binding metho Low 3.5-5.7 [facility] Albumin BCG dye [Mass/Vol] 3.0 g/dL Low 3.5-5.7 [facility] Alkaline phosphatase [Enzyma tic activity/volume] in Serum or PlasmaOrdered By: Jorge Calix on 03-12-2025 ALP [Catalytic activity/Vol] Alkaline phosphatase [Enzymatic activity/volume] in Serum or Plasma 34-104 [facility] ALP [Catalytic activity/Vol] 104 U/L Normal 34-104 [facility] Comment on above: Performed By: #### M G, BMP #### [facility] [address] [place] [id number] [place] Appearance of UrineOrdered B y: Jorge Calix on 03-12-2025 Appearance (U) Urine appearance Clear [facility] Appearance (U) Clear Normal Clear [facility] Comment on above: Order Comment: Name Collection Type:: Other Performed By: #### G MICK #### Point of Care testing , Aspartate aminotransferase [ Enzymatic activity/volume] in Serum or PlasmaOrdered By: Jorge Calix on 03-12-2025 AST [Catalytic activity/Vol] Aspartate aminotransferase [Enzymatic activity/volume] in Serum or Plasma Low 13-39 [facility] AST [Catalytic activity/Vol] 11 U/L Low 13-39 [facility] Comment on above: Performed By: #### Vandana Cramer, BMP #### [address] BNP ser/plasOrdered By: Steven Calix on 03-12-2025 Natriuretic peptide B (Bld) [Mass/Vol] 773.0 pg/mL High 5-100 [facility] Comment on above: Result Comment: PERF ORMED BY: [place] [address] PATHOLOGIST COILED TUBING OPERATOR MAY HYDE M.D. Performed By: #### Vandana Cramer, BMP #### [address] Bacteria [Presence] in Urine by AutomatedOrdered By: Jorge Calix on 03-12-2025 Bacteria Auto Ql (U) Bacteria [Presence] in Urine by Automated High None Seen [facility] Bacteria Auto Ql (U) 2+ [HPF] High None Seen [facility] Basic Metabolic Panelon 05-0 Creatinine Clr Calc Pharmacy 35.31 Normal [facility] Comment on above: Performed By: #### Vandana Cramer, BMP #### [address] Estimated GFR 31.389 mL/Min Normal [facility] Comment on above: Performed By: #### Vandana Cramer, BMP #### [address] Basophils Auto (Bld) [#/Vol] Ordered By: Jorge Calix on 03-12-2025 Basophils (Bld) [#/Vol] Automated basophil count 0.0-0.2 [facility] Basophils [#/volume] in Bloo d by Automated countOrdered By: Jorge Calix on 03-12-2025 Basophils (Bld) [#/Vol] 0.1 10*3/uL Normal 0.0-0.2 [facility] Comment on above: Result Comment: PERF ORMED BY: [place] [address] PATHOLOGIST COILED TUBING OPERATOR MAY HYDE M.D. Performed By: #### Vandana Cramer, BMP #### [address] Basophils/100 WBC Auto (Bld) Ordered By: Jorge Calix on 03-12-2025 Basophils/100 WBC (Bld) Automated basophil % . [facility] Basophils/100 leukocytes in Blood by Automated countOrdered By: Jorge Calix on 03-12-2025 Basophils/100 WBC (Bld) 0.8 % Normal . [facility] Comment on above: Performed By: #### Vandana Cramer, BMP #### [address] Bilirubin Test strip Ql (U)O rdered By: Jorge Calix on 03-12-2025 Bilirubin Ql (U) Bilirubin.total [Presence] in Urine by Test strip Negative [facility] Bilirubin Ql (U) Negative Negative [facility] Bilirubin.direct [Mass/volum e] in Serum or PlasmaOrdered By: Jorge Calix on 03-12-2025 Bilirubin.direct [Mass/Vol] Bilirubin.direct [Mass/volume] in Serum or Plasma 0.03-0.18 [facility] Bilirubin.direct [Mass/Vol] 0.10 mg/dL 0.03-0.18 [facility] Bilirubin.total [Mass/volume ] in Serum or PlasmaOrdered By: Jorge Calix on 03-12-2025 Bilirubin [Mass/Vol] Bilirubin.total [Mass/volume] in Serum or Plasma 0.3-1.0 [facility] Bilirubin [Mass/Vol] 0.5 mg/dL Normal 0.3-1.0 [facility] Comment on above: Performed By: #### Vandana Cramer, BMP #### [facility] [address] Calcium [Mass/volume] in Ser um or PlasmaOrdered By: Jorge Calix on 03-12-2025 Calcium [Mass/Vol] Calcium [Mass/volume ] in Serum or Plasma Low 8.6-10.3 [facility] Calcium [Mass/Vol] 8.3 mg/dL Low 8.6-10.3 [facility] Comment on above: Performed By: #### M Bela, BMP #### [address] Capillary blood glucose wander urement by glucometer (mass/volume)Ordered By: Jorge Calix on 03-12-2025 Glucose [Mass/Vol] 364 mg/dL Normal [facility] Comment on above: Random Glucose Refer ence Range is dependent on time and content of last meal. Glucose of more than 200 mg/dL in a nonstressed, ambulatory subject supports the diagnosis of Diabetes Mellitus. Result Comment: [place] om Glucose Reference Range is dependent on time and content of last meal. Glucose of more than 200 mg/dL in a nonstressed, ambulatory subject supports the diagnosis of Diabetes Mellitus. PERFORMED BY: [place] [address] PATHOLOGIST COILED TUBING OPERATOR MAY HYDE M.D. Performed By: #### A 1C [facility] eA #### [address] Carbon dioxide, total [Moles /volume] in Serum or PlasmaOrdered By: Jorge Calix on 03-12-2025 CO2 [Moles/Vol] Carbon dioxide, tota l [Moles/volume] in Serum or Plasma High 21.0-31.0 [facility] CO2 [Moles/Vol] 37.0 mmol/L High 21.0-31.0 [facility] Comment on above: Performed By: #### Vandana Cramer, BMP #### [place] [address] [place] Chloride [Moles/volume] in S oziel or PlasmaOrdered By: Jorge Calix on 03-12-2025 Chloride [Moles/Vol] Chloride [Moles/vol ume] in Serum or Plasma Low 98-107 [facility] Chloride [Moles/Vol] 89 mmol/L Low 98-107 [facility] Comment on above: Performed By: #### Vandana Craemr, BMP #### [facility] [address] [place] [address] [place] Color Auto (U)Ordered By: Amilcar Calix on 03-12-2025 Color (U) Color of Urine by Auto Yellow Fi [facility] Color of Urine by AutoOrdere d By: Jorge Calix on 03-12-2025 Color (U) Light-yellow Normal Yellow [facility] Comment on above: Order Comment: Name Collection Type:: Other Performed By: #### G MICK #### Point of Care testing , Complete Blood Count Auto Di ffon 03-12-2025 Mean Corpuscular HGB Conc 33.3 g/dL Normal 32.0-35.0 [facility] Comment on above: Performed By: #### Vandana Cramer, BMP #### [place] [address] [place] Monocytes/100 WBC (Bld) 18.66 % Normal 0.00-20.00 [facility] Comment on above: Performed By: #### Vandana Cramer, BMP #### [place] [address] [place] NRBC% 0.1 /100{WBC} Normal 0-0.5 [facility] Comment on above: Performed By: #### Vandana Cramer, BMP #### [place] [address] [place] Creatine kinase [Enzymatic a ctivity/volume] in Serum or PlasmaOrdered By: Jorge Calix on 03-12-2025 CK [Catalytic activity/Vol] Creatine kinase [Enzymatic activity/volume] in Serum or Plasma 30-223 [facility] CK [Catalytic activity/Vol] 57 U/L Normal 30-223 [facility] Comment on above: Performed By: #### Vandana Cramer, BMP #### [place] [address] [place] Creatinine [Mass/volume] in Serum or PlasmaOrdered By: Jorge Calix on 03-12-2025 Creatinine [Mass/Vol] Creatinine [Mass/v olume] in Serum or Plasma High 0.60-1.20 [facility] Creatinine [Mass/Vol] 1.66 mg/dL High 0.60-1.20 [facility] Comment on above: Performed By: #### M G, BMP #### [address] Dipstick and Microscopicon 0 03-12-2025 Bacteria,Urine 2+ High None Seen [facility] Comment on above: Order Comment: Name Collection Type:: Other Performed By: #### G LULS #### Point of Care testing , Bilirubin,Urine Negative Normal Negative [facility] Comment on above: Order Comment: Name Collection Type:: Other Performed By: #### G LULS #### Point of Care testing , Glucose Ql (U) >= High Normal [facility] Comment on above: Order Comment: Name Collection Type:: Other Performed By: #### G LULS #### Point of Care testing , Hyaline Casts,Urine 0-8 Normal 0-8 [facility] Comment on above: Order Comment: Name Collection Type:: Other Result Comment: PERF ORMED BY: [place] [address] PATHOLOGIST COILED TUBING OPERATOR MAY HYDE M.D. Performed By: #### G LULS #### Point of Care testing , Nitrite,Urine Negative Normal Negative [facility] Comment on above: Order Comment: Name Collection Type:: Other Performed By: #### G LULS #### Point of Care testing , Occult Blood,Urine Negative Normal Negative [facility] Comment on above: Order Comment: Name Collection Type:: Other Result Comment: PERF ORMED BY: [place] [id number] PATHOLOGIST COILED TUBING OPERATOR MAY HYDE M.D. Performed By: #### G LULS #### Point of Care testing , RBC,Urine 1-2 Normal 0-4 [facility] Comment on above: Order Comment: Name Collection Type:: Other Performed By: #### G LULS #### Point of Care testing , Specificy [place],Urine 1.012 Normal 1.001-1.030 [facility] Comment on above: Order Comment: Name Collection Type:: Other Performed By: #### G LULS #### Point of Care testing , Squamous Epithelial Cell,Urine 1-2 Normal 0-2 [facility] Comment on above: Order Comment: Name Collection Type:: Other Performed By: #### G LULS #### Point of Care testing , Urobilinogen,Urine Normal Normal Normal [facility] Comment on above: Order Comment: Name Collection Type:: Other Performed By: #### G LULS #### Point of Care testing , WBC,Urine 3-4 Normal 0-4 [facility] Comment on above: Order Comment: Name Collection Type:: Other Performed By: #### G LULS #### Point of Care testing , ECG 12 lead ECGon 03-12-2025 ECG 12 lead ECG [facility] [place] [address] Electrocardiograph Report Signed Patient: Joe Call MR#: [id number] 0 : 1945 Acct:[id number] Age/Sex: 79 / F ADM Date: 03/12/25 Loc: ER Room: Type: [facility] ER Attending Dr: Ordering Provider: [...] 30 bpm Confirmed by Jorge Calix DO ([id number]) on 03/12/2025 6:57:40 PM Referred By: Electronically Signed By: Jorge Calix DO Transcribed By: MUS Signed By Jorge Calix DO 5 1857 Normal [facility] Eosinophils Auto (Bld) [#/Vo l]Ordered By: Jorge Calix on 03-12-2025 Eosinophils (Bld) [#/Vol] Automated eosinophil count 0.0-0.45 [facility] Eosinophils [#/volume] in Bl ood by Automated countOrdered By: Jorge Calix on 03-12-2025 Eosinophils (Bld) [#/Vol] 0.1 10*3/uL Normal 0.0-0.45 [facility] Comment on above: Performed By: #### Vandana Cramer, BMP #### [facility] [address] Eosinophils/100 WBC Auto (Bl d)Ordered By: Jorge Calix on 03-12-2025 Eosinophils/100 WBC (Bld) Automated eosinophil % . [facility] Eosinophils/100 leukocytes i n Blood by Automated countOrdered By: Jorge Calix on 03-12-2025 Eosinophils/100 WBC (Bld) 1.0 % Normal . [facility] Comment on above: Performed By: #### Vandana Cramer, BMP #### [facility] [address] [place] [address] Epithelial cells.squamous [# /area] in Urine sediment by Automated countOrdered By: Jorge Calix on 03-12-2025 Epithelial cells.squamous Auto (Urine sed) [#/Area] Epithelial cells.squamous [#/area] in Urine sediment by Automated count 0-2 [facility] Epithelial cells.squamous Auto (Urine sed) [#/Area] 1-2 [HPF] 0-2 [facility] Erythrocyte distribution wid th Auto (RBC) [Ratio]Ordered By: Jorge Calix on 03-12-2025 Erythrocyte distribution width (RBC) [Ratio] Erythrocyte distribution width [Ratio] by Automated count 11.9-15.3 [facility] Erythrocyte distribution wid th [Ratio] by Automated countOrdered By: Jorge Calix on 03-12-2025 Erythrocyte distribution width (RBC) [Ratio] 14.5 % Normal 11.9-15.3 [facility] Comment on above: Performed By: #### Vandana Cramer, KAREN #### [facility] [address] Erythrocytes [#/area] in Uri ne sediment by Automated countOrdered By: Jorge Calix on 03-12-2025 RBC Auto (Urine sed) [#/Area] Erythrocytes [#/area] in Urine sediment by Automated count 0-4 [facility] RBC Auto (Urine sed) [#/Area] 1-2 [HPF] 0-4 [facility] Erythrocytes [#/volume] in B lood by Automated countOrdered By: Jorge Calix on 03-12-2025 RBC (Bld) [#/Vol] 4.33 10*6/uL Normal 3.60-5.00 [facility] Comment on above: Performed By: #### Vandana Cramer, BMP #### [facility] [address] Globulin Calc (S) [Mass/Vol] Ordered By: Jorge Calix on 03-12-2025 Globulin (S) [Mass/Vol] Serum globulin measurement by calculation (mass/volume) [facility] Glucose Glucometer (BldC) [M ass/Vol]Ordered By: Jorge Calix on 03-12-2025 Glucose [Mass/Vol] Capillary blood gluc ose measurement by glucometer (mass/volume) [facility] Glucose [Mass/volume] in Ser um or PlasmaOrdered By: Jorge Calix on 03-12-2025 Glucose [Mass/Vol] Glucose [Mass/volume ] in Serum or Plasma Critically high 70-100 [facility] Glucose [Mass/Vol] 520 mg/dL Off scale high 70-100 [facility] Comment on above: Critical Result Call ed [...] reference range Performed By: #### Vandana Cramer, KAREN #### [address] Glucose [Mass/volume] in Uri ne by Test stripOrdered By: Jorge Calix on 03-12-2025 Glucose Test strip (U) [Mass/Vol] Glucose [Mass/volume] in Urine by Test strip High Normal [facility] Glucose Test strip (U) [Mass/Vol] >=1000 mg/dL High Normal [facility] Hematocrit Auto (Bld) [Volum e fraction]Ordered By: Jorge Calix on 03-12-2025 Hematocrit (Bld) [Volume fraction] Hematocrit [Volume Fraction] of Blood by Automated count 34.0-46.4 [facility] Hematocrit [Volume Fraction] of Blood by Automated countOrdered By: Jorge Calix on 03-12-2025 Hematocrit (Bld) [Volume fraction] 38.3 % Normal 34.0-46.4 [facility] Comment on above: Performed By: #### Vandana Cramer, KAREN #### [address] Hemoglobin Test strip Ql (U) Ordered By: Jorge Calix on 03-12-2025 Hemoglobin Ql (U) Hemoglobin [Presence ] in Urine by Test strip Negative [facility] Hemoglobin Ql (U) Negative Negative [facility] Hemoglobin [Mass/volume] in BloodOrdered By: Jorge Calix on 03-12-2025 Hemoglobin (Bld) [Mass/Vol] Hemoglobin [Mass/volume] in Blood 11.8-15.4 [facility] Hemoglobin (Bld) [Mass/Vol] 12.8 g/dL Normal 11.8-15.4 [facility] Comment on above: Performed By: #### Vandana Cramer, BMP #### [address] Hepatic Panelon 03-12-2025 Albumin [Mass/Vol] 3.0 g/dL Low 3.5-5.7 [facility] Comment on above: Performed By: #### M Bela, BMP #### [facility] [address] Bilirubin,Indirect 0.4 mg/dL Normal [facility] Comment on above: Performed By: #### M G, BMP #### [facility] [address] Bilirubin.indirect [Mass/Vol] 0.10 mg/dL Normal 0.03-0.18 [facility] Comment on above: Performed By: #### M G, BMP #### [facility] [address] Hyaline casts [#/area] in Ur ine sediment by Automated countOrdered By: Jorge Calix on 03-12-2025 Hyaline casts Auto (Urine sed) [#/Area] Hyaline casts [#/area] in Urine sediment by Automated count 0-8 [facility] Hyaline casts Auto (Urine sed) [#/Area] 0-8 [LPF] 0-8 [facility] [facility] INR in Platelet poor plasma by Coagulation assayOrdered By: Jorge Calix on 03-12-2025 INR Coag (PPP) [Relative time] INR in Platelet poor plasma by Coagulation assay [facility] INR Coag (PPP) [Relative time] 1.7 {INR} Normal [facility] Comment on above: INR Therapeutic Rang e [...] heart valves: 3 - 4.5 PERFORMED BY: [place] [address] PATHOLOGIST COILED TUBING OPERATOR MAY HYDE M.D. Performed By: #### M G, BMP #### [address] Ketones Test strip Ql (U)Ord ered By: Jorge Calix on 03-12-2025 Ketones Ql (U) Ketones [Presence] i n Urine by Test strip Negative [facility] Ketones [Presence] in Urine by Test stripOrdered By: Jorge Calix on 03-12-2025 Ketones Ql (U) Negative Normal Negative [facility] Comment on above: Order Comment: Name Collection Type:: Other Performed By: #### G LULS #### Point of Care testing , Leukocyte esterase [Presence ] in Urine by Test stripOrdered By: Jorge Calix on 03-12-2025 Leukocyte esterase Test strip Ql (U) Leukocyte esterase [Presence] in Urine by Test strip Negative [facility] Leukocyte esterase Test strip Ql (U) Negative Normal Negative [facility] Comment on above: Order Comment: Name Collection Type:: Other Performed By: #### G LULS #### Point of Care testing , Leukocytes [#/area] in Urine sediment by Automated countOrdered By: Jorge Calix on 03-12-2025 WBC Auto (Urine sed) [#/Area] Leukocytes [#/area] in Urine sediment by Automated count 0-4 [facility] WBC Auto (Urine sed) [#/Area] 3-4 [HPF] 0-4 [facility] Leukocytes [#/volume] correc gali for nucleated erythrocytes in Blood by Automated counOrdered By: Jorge Calix on 03-12-2025 WBC corrected for nucl RBC Auto (Bld) [#/Vol] Leukocytes [#/volume] corrected for nucleated erythrocytes in Blood by Automated coun 3.8-11.6 [facility] WBC corrected for nucl RBC Auto (Bld) [#/Vol] 9.0 10*3/uL 3.8-11.6 [facility] Leukocytes [#/volume] in Blo od by Automated countOrdered By: Jorge Calix on 03-12-2025 WBC (Bld) [#/Vol] 9.0 10*3/uL Normal 3.8-11.6 [facility] Comment on above: Performed By: #### Vandana Cramer, BMP #### [facility] [address] Lymphocytes Auto (Bld) [#/Vo l]Ordered By: Jorge Calix on 03-12-2025 Lymphocytes (Bld) [#/Vol] Lymphocytes [#/volume] in Blood by Automated count 1.00-4.8 [facility] Lymphocytes [#/volume] in Bl ood by Automated countOrdered By: Jorge Calix on 03-12-2025 Lymphocytes (Bld) [#/Vol] 1.3 10*3/uL Normal 1.00-4.8 [facility] Comment on above: Performed By: #### Vandana Cramer, BMP #### [facility] [address] [place] [address] Lymphocytes/100 WBC Auto (Bl d)Ordered By: Jorge Calix on 03-12-2025 Lymphocytes/100 WBC (Bld) Lymphocytes/100 leukocytes in Blood by Automated count . [facility] Lymphocytes/100 leukocytes i n Blood by Automated countOrdered By: Jorge Calix on 03-12-2025 Lymphocytes/100 WBC (Bld) 14.2 % Normal . [facility] Comment on above: Performed By: #### Vandana Cramer, BMP #### [facility] [address] [place] [address] MCH Auto (RBC) [Entitic mass ]Ordered By: Jorge Calix on 03-12-2025 MCH (RBC) [Entitic mass] MCH [Entitic mass] by Automated count 24.7-34.3 [facility] MCH [Entitic mass] by Automa gali countOrdered By: Jorge Calix on 03-12-2025 MCH (RBC) [Entitic mass] 29.5 pg Normal 24.7-34.3 [facility] Comment on above: Performed By: #### Vandana Cramer, BMP #### [facility] [address] MCHC Auto (RBC) [Mass/Vol]Or dered By: Jorge Calix on 03-12-2025 MCHC (RBC) [Mass/Vol] MCHC [Mass/volume] by Automated count 32.0-35.0 [facility] MCHC (RBC) [Mass/Vol] 33.3 g/dL 32.0-35.0 [facility] MCV Auto (RBC) [Entitic vol] Ordered By: Jorge Calix on 03-12-2025 MCV (RBC) [Entitic vol] MCV [Entitic volume] by Automated count 80-100 [facility] MCV [Entitic volume] by Auto mated countOrdered By: Jorge Calix on 03-12-2025 MCV (RBC) [Entitic vol] 88.4 fL Normal 80-100 [facility] Comment on above: Performed By: #### Vandana Cramer, BMP #### [facility] [address] [place] [address] Magnesium [Mass/volume] in S oziel or PlasmaOrdered By: Jorge Calix on 03-12-2025 Magnesium [Mass/Vol] Magnesium [Mass/vol ume] in Serum or Plasma Low 1.9-2.7 [facility] Magnesium [Mass/Vol] 1.1 mg/dL Low 1.9-2.7 [facility] Comment on above: Result Comment: PERF ORMED BY: [address] [place] [address] PATHOLOGIST COILED TUBING OPERATOR MAY HYDE M.D. Performed By: #### Vandana Cramer, BMP #### [facility] [address] [place] [address] Monocyte distribution width [Entitic volume] in Blood by AutomatedOrdered By: Jorge Calix on 03-12-2025 Monocyte distribution width Auto (Bld) [Entitic vol] Monocyte distribution width [Entitic volume] in Blood by Automated 0.00-20.00 [facility] Monocyte distribution width Auto (Bld) [Entitic vol] 18.66 % 0.00-20.00 [facility] Monocytes Auto (Bld) [#/Vol] Ordered By: Jorge Calix on 03-12-2025 Monocytes (Bld) [#/Vol] Automated blood monocyte count 0.0-0.8 [facility] Monocytes [#/volume] in Bloo d by Automated countOrdered By: Jorge Calix on 03-12-2025 Monocytes (Bld) [#/Vol] 0.5 10*3/uL Normal 0.0-0.8 [facility] Comment on above: Performed By: #### Vandana Cramer, BMP #### [facility] [address] Monocytes/100 WBC Auto (Bld) Ordered By: Jorge Calix on 03-12-2025 Monocytes/100 WBC (Bld) Automated monocyte % . [facility] Monocytes/100 leukocytes in Blood by Automated countOrdered By: Jorge Calix on 03-12-2025 Monocytes/100 WBC (Bld) 5.9 % Normal . [facility] Comment on above: Performed By: #### Vandana Cramer, BMP #### [facility] [address] [place] [address] [place] Natriuretic peptide B [Mass/ Vol]Ordered By: Jorge Calix on 03-12-2025 Natriuretic peptide B (Bld) [Mass/Vol] BNP ser/plas High 5-100 [facility] Neutrophils Auto (Bld) [#/Vo l]Ordered By: Jorge Calix on 03-12-2025 Neutrophils (Bld) [#/Vol] Neutrophils [#/volume] in Blood by Automated count 1.8-7.7 [facility] Neutrophils [#/volume] in Bl ood by Automated countOrdered By: Jorge Calix on 03-12-2025 Neutrophils (Bld) [#/Vol] 7.0 10*3/uL Normal 1.8-7.7 [facility] Comment on above: Performed By: #### Vandana Cramer, BMP #### [facility] [address] [place] [address] [place] Neutrophils/100 WBC Auto (Bl d)Ordered By: Jorge Calix on 03-12-2025 Neutrophils/100 WBC (Bld) Automated neutrophil % . [facility] Neutrophils/100 leukocytes i n Blood by Automated countOrdered By: Jorge Calix on 03-12-2025 Neutrophils/100 WBC (Bld) 78.1 % Normal . [facility] Comment on above: Performed By: #### KAREN Hansen #### [facility] [address] [place] [address] Nitrite Test strip Ql (U)Ord ered By: Jorge Calix on 03-12-2025 Nitrite Ql (U) Nitrite [Presence] i n Urine by Test strip Negative [facility] Nitrite Ql (U) Negative Negative [facility] No Panel InformationOrdered By: Jorge Calix on 03-12-2025 Estimated GFR (CKD-EPI) 31.389 mL/Min [facility] Creatinine Clearance (Chem 35.31 [facility] 31.389 mL/Min [facility] 35.31 [facility] Nucleated erythrocytes [Pres ence] in Blood by Automated countOrdered By: Jorge Calix on 03-12-2025 Nucleated RBC Auto Ql (Bld) Nucleated erythrocytes [Presence] in Blood by Automated count 0-0.5 [facility] Nucleated RBC Auto Ql (Bld) 0.1 /100{WBC} 0-0.5 [facility] Platelet mean volume Auto (B ld) [Entitic vol]Ordered By: Jorge Calix on 03-12-2025 Platelet mean volume (Bld) [Entitic vol] Platelet mean volume [Entitic volume] in Blood by Automated count 6.3-10.7 [facility] Platelet mean volume [Entiti c volume] in Blood by Automated countOrdered By: Jorge Calix on 03-12-2025 Platelet mean volume (Bld) [Entitic vol] 9.6 fL Normal 6.3-10.7 [facility] Comment on above: Performed By: #### KAREN Hansen #### [facility] [address] [place] [address] Platelets Auto (Bld) [#/Vol] Ordered By: Jorge Calix on 03-12-2025 Platelets (Bld) [#/Vol] Platelets [#/volume] in Blood by Automated count 150-450 [facility] Platelets [#/volume] in Bloo d by Automated countOrdered By: Jorge Calix on 03-12-2025 Platelets (Bld) [#/Vol] 194 10*3/uL Normal 150-450 [facility] Comment on above: Performed By: #### Vandana Cramer, KAREN #### [facility] [address] [place] [address] [place] Potassium [Moles/volume] in Serum or PlasmaOrdered By: Jorge Calix on 03-12-2025 Potassium [Moles/Vol] Potassium [Moles/v olume] in Serum or Plasma 3.5-5.1 [facility] Potassium [Moles/Vol] 4.0 mmol/L Normal 3.5-5.1 [facility] Comment on above: Performed By: #### M Bela, KAREN #### [facility] [address] [place] [address] Protein Test strip (U) [Mass /Vol]Ordered By: Jorge Calix on 03-12-2025 Protein (U) [Mass/Vol] Protein [Mass/vol ume] in Urine by Test strip High Negative [facility] Protein [Mass/volume] in Ser um or PlasmaOrdered By: Jorge Calix on 03-12-2025 Protein [Mass/Vol] Protein [Mass/volume ] in Serum or Plasma 6.4-8.9 [facility] Protein [Mass/Vol] 7.0 g/dL Normal 6.4-8.9 [facility] Comment on above: Performed By: #### Vandana Cramer, KAREN #### [address] Protein [Mass/volume] in Uri ne by Test stripOrdered By: Jorge Calix on 03-12-2025 Protein (U) [Mass/Vol] 200 mg/dL High Negative [facility] Comment on above: Order Comment: Name Collection Type:: Other Performed By: #### G MICK #### Point of Care testing , Prothrombin time (PT)Ordered By: Jorge Calix on 03-12-2025 PT Coag (PPP) [Time] Prothrombin time (PT) High 9.0- 12.9 [facility] PT Coag (PPP) [Time] 19.3 s High 9.0-12.9 [facility] Comment on above: A hematocrit value g reater than 55% may lead to inaccurate results in coagulation testing. Patients having hematocrit values >55% require a special collection tube for coagulation studies. Please contact the laboratory at [phone] for redraw instructions. Result Comment: A he matocrit value greater than 55% may lead to inaccurate results in coagulation testing. Patients having hematocrit values >55% require a special collection tube for coagulation studies. Please contact the laboratory at [phone] for redraw instructions. Performed By: #### M Bela, BMP #### [facility] [address] [place] [address] RBC Auto (Bld) [#/Vol]Ordere d By: Jorge Calix on 03-12-2025 RBC (Bld) [#/Vol] Erythrocytes [#/volu me] in Blood by Automated count 3.60-5.00 [facility] Serum globulin measurement b y calculation (mass/volume)Ordered By: Jorge Calix on 03-12-2025 Globulin (S) [Mass/Vol] 4.0 g/dL [facility] Comment on above: Performed By: #### Vandana Cramer, BMP #### [address] Serum or plasma albumin/glob ulin mass ratioOrdered By: Jorge Calix on 03-12-2025 Albumin/Globulin [Mass ratio] Serum or plasma albumin/globulin mass ratio [facility] Albumin/Globulin [Mass ratio] 0.8 {ratio} Normal [facility] Comment on above: Performed By: #### M Bela, BMP #### [facility] [address] [place] [address] Serum or plasma anion gap de terminationOrdered By: Jorge Calix on 03-12-2025 Anion gap [Moles/Vol] Serum or plasma an ion gap determination 6.0-15.0 [facility] Anion gap [Moles/Vol] 12.0 mmol/L Normal 6.0-15.0 [facility] Comment on above: Performed By: #### Vandana Cramer, BMP #### [address] Serum or plasma non-glucuron idated bilirubin measurement (mass/volume)Ordered By: Jorge Calix on 03-12-2025 Bilirubin.indirect [Mass/Vol] Serum or plasma non-glucuronidated bilirubin measurement (mass/volume) [facility] Bilirubin.indirect [Mass/Vol] 0.4 mg/dL [facility] Sodium [Moles/volume] in Ser um or PlasmaOrdered By: Jorge Calix on 03-12-2025 Sodium [Moles/Vol] Sodium [Moles/volume ] in Serum or Plasma Low 136-145 [facility] Sodium [Moles/Vol] 134 mmol/L Low 136-145 [facility] Comment on above: Performed By: #### Vandana Cramer, BMP #### [address] Specific gravity Test strip (U) [Rel density]Ordered By: Jorge Calix on 03-12-2025 Specific gravity (U) [Rel density] Specific gravity of Urine by Test strip 1.001-1.030 [facility] Specific gravity (U) [Rel density] 1.012 1.001-1.030 [facility] Troponin I High Sensitivityo n 03-12-2025 Troponin I High Sensitivity 46 High 0-15 [facility] Comment on above: Result Comment: The Troponin units of report have been changed to meet the Chest Pain Accreditation requirement, element EC5.M1l2. Troponin units are changed from pg/ml to ng/L. Also, the decimal is removed and results are in whole numbers. PERFORMED BY: [place] [address] PATHOLOGIST COILED TUBING OPERATOR MAY HYDE M.D. Performed By: #### Vandana Cramer, BMP #### [address] Troponin I.cardiac [Mass/vol ume] in Serum or Plasma by Detection limit <= 0.01 ng/Ordered By: Jorge Calix on 03-12-2025 Troponin I.cardiac DL <= 0.01 ng/mL [Mass/Vol] Troponin I.cardiac [Mass/volume] in Serum or Plasma by Detection limit <= 0.01 ng/ High [address] [place] [address] Troponin I.cardiac [Mass/vol ume] in Serum or Plasma by Detection limit <= 0.01 ng/mLOrdered By: Jorge Calix on 03-12-2025 Troponin I.cardiac DL <= 0.01 ng/mL [Mass/Vol] 46 ng/L [facility] [address] Comment on above: The Troponin units o f report have been changed to meet the Chest Pain Accreditation requirement, element EC5.M1l2. Troponin units are changed from pg/ml to ng/L. Also, the decimal is removed and results are in whole numbers. Urea nitrogen [Mass/volume] in Serum or PlasmaOrdered By: Jorge Calix on 03-12-2025 Urea nitrogen [Mass/Vol] Urea nitrogen [Mass/volume] in Serum or Plasma [address] Urea nitrogen [Mass/Vol] 41 mg/dL [address] Comment on above: Performed By: #### M , BMP #### [address] Urobilinogen Test strip (U) [Mass/Vol]Ordered By: Jorge Calix on 03-12-2025 Urobilinogen (U) [Mass/Vol] Urobilinogen [Mass/volume] in Urine by Test strip Normal [facility] Urobilinogen (U) [Mass/Vol] Normal mg/dL Normal [facility] WBC Auto (Bld) [#/Vol]Ordere d By: Jorge Calix on 03-12-2025 WBC (Bld) [#/Vol] Leukocytes [#/volume ] in Blood by Automated count 3.8-11.6 [facility] X-ray reportOrdered By: Kirit Langston on 03-12-2025 Study report [facility] Work Phone: XR chest 1V portableon 03-12 XR chest 1V portable [facility] [place] [address] XRay Report Signed Patient: Joe Call MR#: [id number] 0 : 1945 Acct:[id number] Age/Sex: 79 / F ADM Date: 03/12/25 Loc: ER Room: Type: [facility] ER Attending Dr: Copies to: Jorge [...] Langston M.D. 03/12/2025 3:34 PM Dictation Location: [place] [address] Transcribed By: [facility] 03/12/25 1534 Dictated By: Vargas Langston MD 03/12/25 1532 Signed By: 03/12/25 1534 Normal [facility] pH Test strip (U)Ordered By: Jorge Calix on 03-12-2025 pH (U) pH of Urine by Test strip 5.0-9.0 [facility] pH of Urine by Test stripOrd ered By: Jorge Calix on 03-12-2025 pH (U) 7.0 [pH] Normal 5.0-9.0 [facility] Comment on above: Order Comment: Name Collection Type:: Other Performed By: #### G LULS #### Point of Care testing , Cholesterol in LDL Calc [Mas s/Vol]on 03-02-2025 Cholesterol in LDL [Mass/Vol] Cholesterol in LDL [Mass/volume] in Serum or Plasma by calculation [facility] Comment on above: <100 mg/dl [id number] 0-129 mg/dl NEAR OR ABOVE [id number] mg/dl BORDERLINE [id number] mg/dl HIGH>190 mg/dl VERY HIGH Cholesterol in LDL [Mass/Vol] 55.6 mg/dL [facility] Comment on above: <100 mg/dl [id number] 0-129 mg/dl NEAR OR ABOVE [id number] mg/dl BORDERLINE [id number] mg/dl HIGH>190 mg/dl VERY HIGH Cholesterol in VLDL Calc [Ma ss/Vol]on 03-02-2025 Cholesterol in VLDL [Mass/Vol] Cholesterol in VLDL [Mass/volume] in Serum or Plasma by calculation [facility] Cholesterol in VLDL [Mass/Vol] 24.4 mg/dL [facility] Erythrocyte distribution wid th Auto (RBC) [Ratio]on 03-02-2025 Erythrocyte distribution width (RBC) [Ratio] Erythrocyte distribution width [Ratio] by Automated count 11.0-15.0 [facility] Erythrocyte distribution width (RBC) [Ratio] 13.4 % 11.0-15.0 [facility] Estimated glomerular filtrat ion rate (GFR) non- Americanon 03-02-2025 GFR/1.73 sq M.predicted among non-blacks MDRD (S/P/Bld) [Vol rate/Area] Estimated glomerular filtration rate (GFR) non- Low >=60 mL/min/1.73 m 2 [facility] GFR/1.73 sq M.predicted among non-blacks MDRD (S/P/Bld) [Vol rate/Area] 27 mL/min/{1.73_m2} Low >=60 mL/min/1.73 m 2 [facility] Hematocrit Auto (Bld) [Volum e fraction]on 03-02-2025 Hematocrit (Bld) [Volume fraction] Hematocrit [Volume Fraction] of Blood by Automated count 36.0-48.0 [facility] Hematocrit (Bld) [Volume fraction] 38.7 % 36.0-48.0 [facility] Hemoglobin [Mass/volume] in Bloodon 03-02-2025 Hemoglobin (Bld) [Mass/Vol] Hemoglobin [Mass/volume] in Blood 12.0-16.0 [facility] Hemoglobin (Bld) [Mass/Vol] 12.9 g/dL 12.0-16.0 [facility] Iron binding capacity [Mass/ volume] in Serum or Plasmaon 04-21-2025 Iron binding capacity [Mass/Vol] Iron binding capacity [Mass/volume] in Serum or Plasma 250.0-450.0 [facility] Iron binding capacity [Mass/Vol] 278.0 ug/dL 250.0-450.0 [facility] Iron saturation [Mass Fracti on] in Serum or Plasmaon 03-02-2025 Iron saturation [Mass fraction] Iron saturation [Mass Fraction] in Serum or Plasma [facility] Iron saturation [Mass fraction] 22.3 % [facility] Laboratory - Chemistry and C hemistry - challengeon 03-02-2025 Albumin [Mass/Vol] 2.4 g/dL Low 3.4-5.0 [facility] Calcium [Mass/Vol] 8.1 mg/dL Low 8.5-10.1 [facility] Chloride [Moles/Vol] 96 mmol/L Low 98-107 [facility] Cholesterol [Mass/Vol] 136 mg/dL <=200 Fi [facility] Cholesterol in HDL [Mass/Vol] 56 mg/dL 40-60 [facility] Comment on above: > or =60 mg/dl - LOW CARDIOVASCULAR RISK<40 mg/dl - HIGH CARDIOVASCULAR RISK CO2 [Moles/Vol] 31.2 mmol/L 21.0-32.0 [facility] Creatinine [Mass/Vol] 1.83 mg/dL High 0.55-1.02 [facility] Ferritin [Mass/Vol] 114.0 ng/mL 8.0-252.0 [facility] GFR/1.73 sq M.predicted MDRD (S/P/Bld) [Vol rate/Area] 32 mL/min/{1.73_m2} Low >=60 mL/min/1.73 m 2 [facility] Glucose [Mass/Vol] 337 mg/dL High 74-106 [facility] Iron [Mass/Vol] 62.0 ug/dL 50.0-170.0 [facility] Magnesium [Mass/Vol] 1.0 mg/dL Low 1.8-2.4 [facility] Natriuretic peptide B (Bld) [Mass/Vol] 4236.0 pg/mL Critically high <=1800.0 [facility] Comment on above: RESULTS CALLED TO AN BRYANNA ACUNA Potassium [Moles/Vol] 3.6 mmol/L 3.5-5.1 [facility] Sodium [Moles/Vol] 137 mmol/L 136-145 [facility] Triglyceride [Mass/Vol] 122 mg/dL <=150 [facility] Urate [Mass/Vol] 8.1 mg/dL High 2.6-6.0 [facility] Urea nitrogen [Mass/Vol] 53.0 mg/dL High 7.0-18.0 [facility] Urea nitrogen/Creatinine [Mass ratio] 29.0 mg/mg [facility] Bilirubin Ql (U) Negative NEGATIVE [facility] Glucose (U) [Mass/Vol] 250 mg/dL Abnormal NEGATIVE [facility] Ketones Ql (U) Negative NEGATIVE [facility] pH (U) 6.0 [pH] 5.0-9.0 [facility] Specific gravity (U) [Rel density] 1.020 1.005-1.025 [facility] Urobilinogen Qn (U) 0.2 {Meka'U}/dL 0.2-1.0 [facility] Laboratory - Specimen inform ationon 03-02-2025 Appearance (U) CLEAR CLEAR [facility] Color (U) LT. YELLOW YELLOW [facility] Laboratory - Urinalysison Leukocyte esterase Test strip Ql (U) Negative NEGATIVE [facility] Mucus Ql (Urine sed) TRACE Abnormal NONE SEEN [facility] Nitrite Ql (U) Negative NEGATIVE [facility] Protein (U) [Mass/Vol] 186.2 mg/dL High <=11.9 [facility] Protein Ql (U) >=300 mg/dL Abnormal NEG/TRACE [facility] Leukocytes [#/volume] correc gali for nucleated erythrocytes in Blood by Automated counon 03-02-2025 WBC corrected for nucl RBC Auto (Bld) [#/Vol] Leukocytes [#/volume] corrected for nucleated erythrocytes in Blood by Automated coun 4.0-11.0 [facility] WBC corrected for nucl RBC Auto (Bld) [#/Vol] 8.7 10 3/uL 4.0-11.0 [facility] MCH Auto (RBC) [Entitic mass ]on 03-02-2025 MCH (RBC) [Entitic mass] MCH [Entitic mass] by Automated count 26.7-34.0 [facility] MCH (RBC) [Entitic mass] 29.4 pg 26.7-34.0 [facility] MCHC Auto (RBC) [Mass/Vol]on 03-02-2025 MCHC (RBC) [Mass/Vol] MCHC [Mass/volume] by Automated count 29.9-35.2 [facility] MCHC (RBC) [Mass/Vol] 33.3 g/dL 29.9-35.2 [facility] MCV Auto (RBC) [Entitic vol] on 03-02-2025 MCV (RBC) [Entitic vol] MCV [Entitic volume] by Automated count 81.0-99.0 [facility] MCV (RBC) [Entitic vol] 88.2 fL 81.0-99.0 [facility] No Panel Informationon 03-02 25-Hydroxy Vitamin D Total 10.8 ng/mL [facility] Comment on above: <20 ng/mL Vit D defi cient20-<30 ng/mL Vit D [id number] ng/mL Vit D sufficient>100 ng/mL Potential Toxicity Parathyroid Hormone (Intact) 57 pg/mL [facility] Comment on above: Performed at: - [place] [id number] Director: Dimitri Landis PhD, Phone: [phone] Phosphorus Level 4.9 mg/dL High 2.6-4.7 [facility] 57 pg/mL [facility] 10.8 ng/mL [facility] 114.0 ng/mL 8.0-252.0 [facility] 4236.0 pg/mL Critically high <=1800.0 [facility] 1.0 mg/dL Low 1.8-2.4 [facility] 2.4 g/dL Low 3.4-5.0 [facility] 4.9 mg/dL High 2.6-4.7 [facility] 8.1 mg/dL Low 8.5-10.1 [facility] 136 mg/dL <=200 [facility] 29.0 [facility] 62.0 ug/dL 50.0-170.0 [facility] 56 mg/dL 40-60 [facility] 53.0 mg/dL High 7.0-18.0 [facility] 122 mg/dL <=150 [facility] 96 mmol/L Low 98-107 [facility] 31.2 mmol/L 21.0-32.0 [facility] 1.83 mg/dL High 0.55-1.02 [facility] 32 Low >=60 mL/min/1.73 m 2 [facility] 337 mg/dL High 74-106 [facility] 3.6 mmol/L 3.5-5.1 [facility] 137 mmol/L 136-145 [facility] Urine Bacteria SMALL #/HPF Abnormal NONE SEEN [facility] Urine Occult Blood TRACE-I NEGATIVE [facility] Urine Other Casts NONE SEEN #/LPF NONE SEEN [facility] Urine Other Crystals None Seen #/HPF None Seen [facility] Urine Random Creatinine 26.93 mg/dL 20.00-300.0 0 [facility] Urine RBC 2-5 #/HPF Abnormal 0-2 [facility] Urine Squamous Epithelial Cells FEW #/LPF Abnormal NONE/RARE [facility] Urine WBC NONE SEEN #/HPF NONE SEEN [facility] 26.93 mg/dL 20.00-300.0 0 [facility] 186.2 mg/dL High <=11.9 [facility] Office Visiton 03-02-2025 Follow-up visit [id number] Joe Call 1945 F Date Provider Department Center 03/02/2025 [id number] LUNA Family History Problem Relation Age of Onset Heart disease Mother Heart attack Father Coronary artery disease Other Diabetes Other Polycystic kidney disease Other Family Status - Relation Status Age at Mother Father Sister Brother Other Level of Service:[address] [place] OFFICE/OUTPATIENT ESTABLISHED MOD MDM 30 MIN Reason for Visit and Comments: 5 week follow up with Labs [Other] Normal [facility] Orders Onlyon 03-02-2025 Orders Only [id number] Joe Call 1945 F Date Provider Department Center 03/02/2025 [facility]RSENIO CASTELLANO [facility] Family History Problem Relation Age of Onset Heart disease Mother Heart attack Father Coronary artery disease Other Diabetes Other Polycystic kidney disease Other Family Status - Relation Status Age at Mother Father Sister Brother Other Normal [facility] Platelet mean volume Auto (B ld) [Entitic vol]on 03-02-2025 Platelet mean volume (Bld) [Entitic vol] Platelet mean volume [Entitic volume] in Blood by Automated count 9.5-13.5 [facility] Platelet mean volume (Bld) [Entitic vol] 11.7 fL 9.5-13.5 [facility] Platelets Auto (Bld) [#/Vol] on 03-02-2025 Platelets (Bld) [#/Vol] Platelets [#/volume] in Blood by Automated count 150-450 [facility] Platelets (Bld) [#/Vol] 150 10 3/uL 150-450 [facility] RBC Auto (Bld) [#/Vol]on RBC (Bld) [#/Vol] Erythrocytes [#/volu me] in Blood by Automated count 4.20-5.40 [facility] RBC (Bld) [#/Vol] 4.39 10 6/uL 4.20-5.40 [facility] Serum or plasma anion gap de terminationon 03-02-2025 Anion gap [Moles/Vol] Serum or plasma an ion gap determination [facility] Anion gap [Moles/Vol] 13.4 mmol/L [facility] Serum or plasma total choles terol/high density lipoprotein (HDL) cholesterol mass herminia 03-02-2025 Cholesterol.total/Chol esterol in HDL [Mass ratio] Serum or plasma total cholesterol/high density lipoprotein (HDL) cholesterol mass rat [facility] Comment on above: 3.3 - 4.4 LOW RISK4. 4 - 7.1 AVERAGE RISK7.1 - 11.0 MODERATE RISK>11.0 HIGH RISK Cholesterol.total/Chol esterol in HDL [Mass ratio] 2.4 {ratio} [facility] Comment on above: 3.3 - 4.4 LOW RISK4. 4 - 7.1 AVERAGE RISK7.1 - 11.0 MODERATE RISK>11.0 HIGH RISK Urine protein/creatinine rat ioon 03-02-2025 Protein/Creatinine (U) [Ratio] Urine protein/creatinine ratio [facility] Protein/Creatinine (U) [Ratio] 6.91 [facility] Yeast detection in urine sed iment by light microscopyon 03-02-2025 Yeast LM Ql (Urine sed) SEEN Abnormal NONE SEEN [facility] Office Visiton 01-28-2025 Follow-up visit [id number] Joe Call 1945 F Date Provider Department Center 01/28/2025 [id number] LUNA [facility] Family History Problem Relation Age of Onset Coronary artery disease Other Diabetes Other Polycystic kidney disease Other Family Status - Relation Status Age at Other Level of Service:[address] [place] OFFICE/OUTPATIENT ESTABLISHED MOD MDM 30 MIN Reason for Visit and Comments: Hypertension [491387] Congestive Heart Failure [127] - Discharged yesterday from [facility] for CHF. Discharge papers from [facility] do not have her on a diuretic. Patient believes she's taking furosemide 40mg every other day. Coronary Artery Disease [187] Atrial Fibrillation [80] - Denies lightheadedness/syncope and bleeding on Xarelto. Hyperlipidemia [182] - No lipids since last visit. Edema [[id number]] Shortness of Breath [800164] - Improving. Palpitations [448227] Fall [557982] - Fell a few days ago at home when she slipped on the carpet. Normal [facility] Basophils Auto (Bld) [#/Vol] on 01-27-2025 Basophils (Bld) [#/Vol] Automated basophil count 0.0-0.1 [facility] Basophils/100 WBC Auto (Bld) on 01-27-2025 Basophils/100 WBC (Bld) Automated basophil % 0.2-2.0 [facility] Eosinophils/100 WBC Auto (Bl d)on 01-27-2025 Eosinophils/100 WBC (Bld) Automated eosinophil % 0.9-7.0 [facility] Erythrocyte distribution wid th Auto (RBC) [Ratio]on 01-27-2025 Erythrocyte distribution width (RBC) [Ratio] Erythrocyte distribution width [Ratio] by Automated count 11.0-15.0 [facility] Estimated glomerular filtrat ion rate (GFR) non- Americanon 01-27-2025 GFR/1.73 sq M.predicted among non-blacks MDRD (S/P/Bld) [Vol rate/Area] Estimated glomerular filtration rate (GFR) non- Low >=60 mL/min/1.73 m 2 [facility] Globulin Calc (S) [Mass/Vol] on 01-27-2025 Globulin (S) [Mass/Vol] Serum globulin measurement by calculation (mass/volume) [facility] Hematocrit Auto (Bld) [Volum e fraction]on 01-27-2025 Hematocrit (Bld) [Volume fraction] Hematocrit [Volume Fraction] of Blood by Automated count 36.0-48.0 [facility] Hemoglobin [Mass/volume] in Bloodon 01-27-2025 Hemoglobin (Bld) [Mass/Vol] Hemoglobin [Mass/volume] in Blood 12.0-16.0 [facility] Laboratory - Chemistry and C hemistry - challengeon 01-27-2025 Potassium [Moles/Vol] 3.8 mmol/L 3.5-5.1 [facility] Albumin [Mass/Vol] 2.1 g/dL Low 3.4-5.0 [facility] ALP [Catalytic activity/Vol] 79 U/L 46-116 [facility] ALT [Catalytic activity/Vol] 8 U/L Low 14-59 [facility] AST [Catalytic activity/Vol] 17 U/L 15-37 [facility] Bilirubin [Mass/Vol] 0.4 mg/dL 0.2-1.0 [facility] Calcium [Mass/Vol] 8.3 mg/dL Low 8.5-10.1 [facility] Chloride [Moles/Vol] 105 mmol/L 98-107 [facility] CO2 [Moles/Vol] 36.4 mmol/L High 21.0-32.0 [facility] Creatinine [Mass/Vol] 1.52 mg/dL High 0.55-1.02 [facility] GFR/1.73 sq M.predicted MDRD (S/P/Bld) [Vol rate/Area] 40 mL/min/{1.73_m2} Low >=60 mL/min/1.73 m 2 [facility] Glucose [Mass/Vol] 113 mg/dL High 74-106 [facility] Magnesium [Mass/Vol] 1.3 mg/dL Low 1.8-2.4 [facility] Protein [Mass/Vol] 6.1 g/dL Low 6.4-8.2 [facility] Sodium [Moles/Vol] 144 mmol/L 136-145 [facility] Urea nitrogen [Mass/Vol] 22.0 mg/dL High 7.0-18.0 [facility] Urea nitrogen/Creatinine [Mass ratio] 14.5 mg/mg [facility] Laboratory - Hematology and Cell countson 01-27-2025 Immature granulocytes/100 WBC (Bld) 0.2 % 0.0-0.5 [facility] Leukocytes [#/volume] correc gali for nucleated erythrocytes in Blood by Automated counon 01-27-2025 WBC corrected for nucl RBC Auto (Bld) [#/Vol] Leukocytes [#/volume] corrected for nucleated erythrocytes in Blood by Automated coun 4.0-11.0 [facility] Lymphocytes Auto (Bld) [#/Vo l]on 01-27-2025 Lymphocytes (Bld) [#/Vol] Lymphocytes [#/volume] in Blood by Automated count 1.2-3.8 [facility] Lymphocytes/100 WBC Auto (Bl d)on 01-27-2025 Lymphocytes/100 WBC (Bld) Lymphocytes/100 leukocytes in Blood by Automated count 20.5-60.0 [facility] MCH Auto (RBC) [Entitic mass ]on 01-27-2025 MCH (RBC) [Entitic mass] MCH [Entitic mass] by Automated count 26.7-34.0 [facility] MCHC Auto (RBC) [Mass/Vol]on 01-27-2025 MCHC (RBC) [Mass/Vol] MCHC [Mass/volume] by Automated count 29.9-35.2 [facility] MCV Auto (RBC) [Entitic vol] on 01-27-2025 MCV (RBC) [Entitic vol] MCV [Entitic volume] by Automated count 81.0-99.0 [facility] Monocytes Auto (Bld) [#/Vol] on 01-27-2025 Monocytes (Bld) [#/Vol] Automated blood monocyte count High 0.3-0.8 [facility] Monocytes/100 WBC Auto (Bld) on 01-27-2025 Monocytes/100 WBC (Bld) Automated monocyte % 1.7-12.0 [facility] Neutrophils Auto (Bld) [#/Vo l]on 01-27-2025 Neutrophils (Bld) [#/Vol] Neutrophils [#/volume] in Blood by Automated count 1.4-6.5 [facility] Neutrophils/100 WBC Auto (Bl d)on 01-27-2025 Neutrophils/100 WBC (Bld) Automated neutrophil % 43.0-75.0 [facility] No Panel Informationon 01-27 3.8 mmol/L 3.5-5.1 [facility] Eosinophils # (Auto) 0.2 10 3/uL 0.0-0.7 [facility] Immature Granulocyte # (Auto) 0.02 10 3/uL 0.00-0.03 [facility] 1.3 mg/dL Low 1.8-2.4 [facility] 0.2 10 3/uL 0.0-0.7 [facility] 2.1 g/dL Low 3.4-5.0 [facility] 79 U/L 46-116 [facility] 8 U/L Low 14-59 [facility] 17 U/L 15-37 [facility] 0.02 10 3/uL 0.00-0.03 [facility] 14.5 [facility] 0.2 % 0.0-0.5 [facility] 22.0 mg/dL High 7.0-18.0 [facility] 8.3 mg/dL Low 8.5-10.1 [facility] 105 mmol/L 98-107 [facility] 36.4 mmol/L High 21.0-32.0 [facility] 1.52 mg/dL High 0.55-1.02 [facility] 40 Low >=60 mL/min/1.73 m 2 [facility] 113 mg/dL High 74-106 [facility] 144 mmol/L 136-145 [facility] 0.4 mg/dL 0.2-1.0 [facility] 6.1 g/dL Low 6.4-8.2 [facility] Platelet mean volume Auto (B ld) [Entitic vol]on 01-27-2025 Platelet mean volume (Bld) [Entitic vol] Platelet mean volume [Entitic volume] in Blood by Automated count 9.5-13.5 [facility] Platelets Auto (Bld) [#/Vol] on 01-27-2025 Platelets (Bld) [#/Vol] Platelets [#/volume] in Blood by Automated count 150-450 [facility] RBC Auto (Bld) [#/Vol]on RBC (Bld) [#/Vol] Erythrocytes [#/volu me] in Blood by Automated count 4.20-5.40 [facility] Serum or plasma albumin/glob ulin mass ratioon 01-27-2025 Albumin/Globulin [Mass ratio] Serum or plasma albumin/globulin mass ratio [facility] Serum or plasma anion gap de terminationon 01-27-2025 Anion gap [Moles/Vol] Serum or plasma an ion gap determination [facility] Basophils Auto (Bld) [#/Vol] on 01-26-2025 Basophils (Bld) [#/Vol] Automated basophil count 0.0-0.1 [facility] Basophils/100 WBC Auto (Bld) on 01-26-2025 Basophils/100 WBC (Bld) Automated basophil % 0.2-2.0 [facility] Eosinophils/100 WBC Auto (Bl d)on 01-26-2025 Eosinophils/100 WBC (Bld) Automated eosinophil % 0.9-7.0 [facility] Erythrocyte distribution wid th Auto (RBC) [Ratio]on 01-26-2025 Erythrocyte distribution width (RBC) [Ratio] Erythrocyte distribution width [Ratio] by Automated count 11.0-15.0 [facility] Estimated glomerular filtrat ion rate (GFR) non- Americanon 01-26-2025 GFR/1.73 sq M.predicted among non-blacks MDRD (S/P/Bld) [Vol rate/Area] Estimated glomerular filtration rate (GFR) non- Low >=60 mL/min/1.73 m 2 [facility] Globulin Calc (S) [Mass/Vol] on 01-26-2025 Globulin (S) [Mass/Vol] Serum globulin measurement by calculation (mass/volume) [facility] Hematocrit Auto (Bld) [Volum e fraction]on 01-26-2025 Hematocrit (Bld) [Volume fraction] Hematocrit [Volume Fraction] of Blood by Automated count 36.0-48.0 [facility] Hemoglobin [Mass/volume] in Bloodon 01-26-2025 Hemoglobin (Bld) [Mass/Vol] Hemoglobin [Mass/volume] in Blood 12.0-16.0 [facility] Laboratory - Chemistry and C hemistry - challengeon 01-26-2025 Albumin [Mass/Vol] 1.9 g/dL Low 3.4-5.0 [facility] ALP [Catalytic activity/Vol] 77 U/L 46-116 [facility] ALT [Catalytic activity/Vol] 11 U/L Low 14-59 [facility] AST [Catalytic activity/Vol] 19 U/L 15-37 [facility] Bilirubin [Mass/Vol] 0.4 mg/dL 0.2-1.0 [facility] Calcium [Mass/Vol] 8.0 mg/dL Low 8.5-10.1 [facility] Chloride [Moles/Vol] 105 mmol/L 98-107 [facility] CO2 [Moles/Vol] 35.1 mmol/L High 21.0-32.0 [facility] Creatinine [Mass/Vol] 1.36 mg/dL High 0.55-1.02 [facility] GFR/1.73 sq M.predicted MDRD (S/P/Bld) [Vol rate/Area] 46 mL/min/{1.73_m2} Low >=60 mL/min/1.73 m 2 [facility] Glucose [Mass/Vol] 133 mg/dL High 74-106 [facility] Magnesium [Mass/Vol] 1.3 mg/dL Low 1.8-2.4 [facility] Potassium [Moles/Vol] 2.9 mmol/L Critically low 3.5-5.1 [facility] Comment on above: RESULTS CALLED TO JOSE MARTIN DODGE RN @BY Alla Venegas at 0635 Protein [Mass/Vol] 5.8 g/dL Low 6.4-8.2 [facility] Sodium [Moles/Vol] 145 mmol/L 136-145 [facility] Urea nitrogen [Mass/Vol] 21.0 mg/dL High 7.0-18.0 [facility] Urea nitrogen/Creatinine [Mass ratio] 15.4 mg/mg [facility] Laboratory - Hematology and Cell countson 01-26-2025 Immature granulocytes/100 WBC (Bld) 0.1 % 0.0-0.5 [facility] Leukocytes [#/volume] correc glai for nucleated erythrocytes in Blood by Automated counon 01-26-2025 WBC corrected for nucl RBC Auto (Bld) [#/Vol] Leukocytes [#/volume] corrected for nucleated erythrocytes in Blood by Automated coun 4.0-11.0 [facility] Lymphocytes Auto (Bld) [#/Vo l]on 01-26-2025 Lymphocytes (Bld) [#/Vol] Lymphocytes [#/volume] in Blood by Automated count 1.2-3.8 [facility] Lymphocytes/100 WBC Auto (Bl d)on 01-26-2025 Lymphocytes/100 WBC (Bld) Lymphocytes/100 leukocytes in Blood by Automated count Low 20.5-60.0 [facility] MCH Auto (RBC) [Entitic mass ]on 01-26-2025 MCH (RBC) [Entitic mass] MCH [Entitic mass] by Automated count 26.7-34.0 [facility] MCHC Auto (RBC) [Mass/Vol]on 01-26-2025 MCHC (RBC) [Mass/Vol] MCHC [Mass/volume] by Automated count 29.9-35.2 [facility] MCV Auto (RBC) [Entitic vol] on 01-26-2025 MCV (RBC) [Entitic vol] MCV [Entitic volume] by Automated count 81.0-99.0 [facility] Monocytes Auto (Bld) [#/Vol] on 01-26-2025 Monocytes (Bld) [#/Vol] Automated blood monocyte count 0.3-0.8 [facility] Monocytes/100 WBC Auto (Bld) on 01-26-2025 Monocytes/100 WBC (Bld) Automated monocyte % 1.7-12.0 [facility] Neutrophils Auto (Bld) [#/Vo l]on 01-26-2025 Neutrophils (Bld) [#/Vol] Neutrophils [#/volume] in Blood by Automated count 1.4-6.5 [facility] Neutrophils/100 WBC Auto (Bl d)on 01-26-2025 Neutrophils/100 WBC (Bld) Automated neutrophil % 43.0-75.0 [facility] No Panel Informationon 01-26 Eosinophils # (Auto) 0.1 10 3/uL 0.0-0.7 [facility] Immature Granulocyte # (Auto) 0.01 10 3/uL 0.00-0.03 [facility] Troponin I High Sensitivity 30.9 pg/mL 4.0-51.3 [facility] Comment on above: CUT-OFF POINTS HAVE BEEN [...] AND CLINICAL INFORMATION. 1.3 mg/dL Low 1.8-2.4 [facility] 30.9 pg/mL 4.0-51.3 [facility] 0.1 10 3/uL 0.0-0.7 [facility] 1.9 g/dL Low 3.4-5.0 [facility] 77 U/L 46-116 [facility] 11 U/L Low 14-59 [facility] 19 U/L 15-37 [facility] 0.01 10 3/uL 0.00-0.03 [facility] 15.4 [facility] 0.1 % 0.0-0.5 [facility] 21.0 mg/dL High 7.0-18.0 [facility] 8.0 mg/dL Low 8.5-10.1 [facility] 105 mmol/L 98-107 [facility] 35.1 mmol/L High 21.0-32.0 [facility] 1.36 mg/dL High 0.55-1.02 [facility] 46 Low >=60 mL/min/1.73 m 2 [facility] 133 mg/dL High 74-106 [facility] 2.9 mmol/L Critically low 3.5-5.1 [facility] 145 mmol/L 136-145 [facility] 0.4 mg/dL 0.2-1.0 [facility] 5.8 g/dL Low 6.4-8.2 [facility] Platelet mean volume Auto (B ld) [Entitic vol]on 01-26-2025 Platelet mean volume (Bld) [Entitic vol] Platelet mean volume [Entitic volume] in Blood by Automated count 9.5-13.5 [facility] Platelets Auto (Bld) [#/Vol] on 01-26-2025 Platelets (Bld) [#/Vol] Platelets [#/volume] in Blood by Automated count 150-450 [facility] RBC Auto (Bld) [#/Vol]on RBC (Bld) [#/Vol] Erythrocytes [#/volu me] in Blood by Automated count Low 4.20-5.40 [facility] Serum or plasma albumin/glob ulin mass ratioon 01-26-2025 Albumin/Globulin [Mass ratio] Serum or plasma albumin/globulin mass ratio [facility] Serum or plasma anion gap de terminationon 01-26-2025 Anion gap [Moles/Vol] Serum or plasma an ion gap determination [facility] Basophils Auto (Bld) [#/Vol] on 01-25-2025 Basophils (Bld) [#/Vol] Automated basophil count 0.0-0.1 [facility] Basophils/100 WBC Auto (Bld) on 01-25-2025 Basophils/100 WBC (Bld) Automated basophil % 0.2-2.0 [facility] Eosinophils/100 WBC Auto (Bl d)on 01-25-2025 Eosinophils/100 WBC (Bld) Automated eosinophil % 0.9-7.0 [facility] Erythrocyte distribution wid th Auto (RBC) [Ratio]on 01-25-2025 Erythrocyte distribution width (RBC) [Ratio] Erythrocyte distribution width [Ratio] by Automated count 11.0-15.0 [facility] Estimated glomerular filtrat ion rate (GFR) non- Americanon 01-25-2025 GFR/1.73 sq M.predicted among non-blacks MDRD (S/P/Bld) [Vol rate/Area] Estimated glomerular filtration rate (GFR) non- Low >=60 mL/min/1.73 m 2 [facility] Hematocrit Auto (Bld) [Volum e fraction]on 01-25-2025 Hematocrit (Bld) [Volume fraction] Hematocrit [Volume Fraction] of Blood by Automated count 36.0-48.0 [facility] Hemoglobin [Mass/volume] in Bloodon 01-25-2025 Hemoglobin (Bld) [Mass/Vol] Hemoglobin [Mass/volume] in Blood 12.0-16.0 [facility] Laboratory - Chemistry and C hemistry - challengeon 01-25-2025 Potassium [Moles/Vol] 3.1 mmol/L Low 3.5-5.1 [facility] Free T4 [Mass/Vol] 1.65 ng/dL High 0.76-1.46 [facility] Magnesium [Mass/Vol] 1.2 mg/dL Low 1.8-2.4 [facility] TSH Qn 6.107 m[IU]/L High 0.358-3.740 [facility] Calcium [Mass/Vol] 8.1 mg/dL Low 8.5-10.1 [facility] Chloride [Moles/Vol] 104 mmol/L 98-107 [facility] CO2 [Moles/Vol] 34.6 mmol/L High 21.0-32.0 [facility] Creatinine [Mass/Vol] 1.49 mg/dL High 0.55-1.02 [facility] GFR/1.73 sq M.predicted MDRD (S/P/Bld) [Vol rate/Area] 41 mL/min/{1.73_m2} Low >=60 mL/min/1.73 m 2 [facility] Glucose [Mass/Vol] 121 mg/dL High 74-106 [facility] Natriuretic peptide B (Bld) [Mass/Vol] 7089.0 pg/mL Critically high <=1800.0 [facility] Comment on above: RESULTS CALLED TO RENETTA Hogan RN @BY Andrea Long [place] at 0458 Sodium [Moles/Vol] 144 mmol/L 136-145 [facility] Urea nitrogen [Mass/Vol] 22.0 mg/dL High 7.0-18.0 [facility] Urea nitrogen/Creatinine [Mass ratio] 14.8 mg/mg [facility] Laboratory - Hematology and Cell countson 01-25-2025 Immature granulocytes/100 WBC (Bld) 0.4 % 0.0-0.5 [facility] Leukocytes [#/volume] correc gali for nucleated erythrocytes in Blood by Automated counon 01-25-2025 WBC corrected for nucl RBC Auto (Bld) [#/Vol] Leukocytes [#/volume] corrected for nucleated erythrocytes in Blood by Automated coun 4.0-11.0 [facility] Lymphocytes Auto (Bld) [#/Vo l]on 01-25-2025 Lymphocytes (Bld) [#/Vol] Lymphocytes [#/volume] in Blood by Automated count 1.2-3.8 [facility] Lymphocytes/100 WBC Auto (Bl d)on 01-25-2025 Lymphocytes/100 WBC (Bld) Lymphocytes/100 leukocytes in Blood by Automated count Low 20.5-60.0 [facility] MCH Auto (RBC) [Entitic mass ]on 01-25-2025 MCH (RBC) [Entitic mass] MCH [Entitic mass] by Automated count 26.7-34.0 [facility] MCHC Auto (RBC) [Mass/Vol]on 01-25-2025 MCHC (RBC) [Mass/Vol] MCHC [Mass/volume] by Automated count 29.9-35.2 [facility] MCV Auto (RBC) [Entitic vol] on 01-25-2025 MCV (RBC) [Entitic vol] MCV [Entitic volume] by Automated count 81.0-99.0 [facility] Monocytes Auto (Bld) [#/Vol] on 01-25-2025 Monocytes (Bld) [#/Vol] Automated blood monocyte count 0.3-0.8 [facility] Monocytes/100 WBC Auto (Bld) on 01-25-2025 Monocytes/100 WBC (Bld) Automated monocyte % 1.7-12.0 [facility] Neutrophils Auto (Bld) [#/Vo l]on 01-25-2025 Neutrophils (Bld) [#/Vol] Neutrophils [#/volume] in Blood by Automated count 1.4-6.5 [facility] Neutrophils/100 WBC Auto (Bl d)on 01-25-2025 Neutrophils/100 WBC (Bld) Automated neutrophil % 43.0-75.0 [facility] No Panel Informationon 01-25 3.1 mmol/L Low 3.5-5.1 [facility] Clostridium difficile (PCR)(LAB) Negative [facility] Negative [facility] Troponin I High Sensitivity 28.4 pg/mL 4.0-51.3 [facility] Comment on above: CUT-OFF POINTS HAVE BEEN [...] AND CLINICAL INFORMATION. 1.65 ng/dL High 0.76-1.46 [facility] 6.107 u[iU]/mL High 0.358-3.740 [facility] 28.4 pg/mL 4.0-51.3 [facility] 1.2 mg/dL Low 1.8-2.4 [facility] Eosinophils # (Auto) 0.1 10 3/uL 0.0-0.7 [facility] Immature Granulocyte # (Auto) 0.03 10 3/uL 0.00-0.03 [facility] 7089.0 pg/mL Critically high <=1800.0 [facility] 14.8 [facility] 22.0 mg/dL High 7.0-18.0 [facility] 0.1 10 3/uL 0.0-0.7 [facility] 8.1 mg/dL Low 8.5-10.1 [facility] 104 mmol/L 98-107 [facility] 34.6 mmol/L High 21.0-32.0 [facility] 1.49 mg/dL High 0.55-1.02 [facility] 0.03 10 3/uL 0.00-0.03 [facility] 41 Low >=60 mL/min/1.73 m 2 [facility] 0.4 % 0.0-0.5 [facility] 121 mg/dL High 74-106 [facility] 144 mmol/L 136-145 [facility] Platelet mean volume Auto (B ld) [Entitic vol]on 01-25-2025 Platelet mean volume (Bld) [Entitic vol] Platelet mean volume [Entitic volume] in Blood by Automated count 9.5-13.5 [facility] Platelets Auto (Bld) [#/Vol] on 01-25-2025 Platelets (Bld) [#/Vol] Platelets [#/volume] in Blood by Automated count 150-450 [facility] RBC Auto (Bld) [#/Vol]on RBC (Bld) [#/Vol] Erythrocytes [#/volu me] in Blood by Automated count Low 4.20-5.40 [facility] Serum or plasma anion gap de terminationon 01-25-2025 Anion gap [Moles/Vol] Serum or plasma an ion gap determination [facility] Laboratory - Chemistry and C hemistry - challengeon 01-21-2025 Bilirubin Ql (U) ++ [facility] Glucose (U) [Mass/Vol] [facility] Ketones Ql (U) Negative [facility] pH (U) 6.0 [pH] [facility] Specific gravity (U) [Rel density] 1.010 [facility] Urobilinogen (U) [Mass/Vol] 0.2 mg/dL [facility] Laboratory - Specimen inform ationon 01-21-2025 Appearance (U) cloudy [facility] Color (U) darkyellow [facility] Laboratory - Urinalysison Leukocyte esterase Test strip Ql (U) Negative [facility] Nitrite Ql (U) Negative [facility] Protein Ql (U) ++++ [facility] No Panel Informationon 01-21 Urine Occult Blood 5-10 [facility] darkyellow [facility] cloudy [facility] 1.010 [facility] 6.0 [facility] Negative [facility] ++++ [facility] + [facility] 0.2 [facility] ++ [facility] 5-10 [facility] Basophils Auto (Bld) [#/Vol] on 12-04-2024 Basophils (Bld) [#/Vol] Automated basophil count 0.0-0.1 [facility] Basophils/100 WBC Auto (Bld) on 12-04-2024 Basophils/100 WBC (Bld) Automated basophil % 0.2-2.0 [facility] Eosinophils/100 WBC Auto (Bl d)on 12-04-2024 Eosinophils/100 WBC (Bld) Automated eosinophil % 0.9-7.0 [facility] Erythrocyte distribution wid th Auto (RBC) [Ratio]on 12-04-2024 Erythrocyte distribution width (RBC) [Ratio] Erythrocyte distribution width [Ratio] by Automated count 11.0-15.0 [facility] Estimated glomerular filtrat ion rate (GFR) non- Americanon 12-04-2024 GFR/1.73 sq M.predicted among non-blacks MDRD (S/P/Bld) [Vol rate/Area] Estimated glomerular filtration rate (GFR) non- Low >=60 mL/min/1.73 m 2 [facility] Globulin Calc (S) [Mass/Vol] on 12-04-2024 Globulin (S) [Mass/Vol] Serum globulin measurement by calculation (mass/volume) [facility] Hematocrit Auto (Bld) [Volum e fraction]on 12-04-2024 Hematocrit (Bld) [Volume fraction] Hematocrit [Volume Fraction] of Blood by Automated count 36.0-48.0 [facility] Hemoglobin [Mass/volume] in Bloodon 12-04-2024 Hemoglobin (Bld) [Mass/Vol] Hemoglobin [Mass/volume] in Blood Low 12.0-16.0 [facility] INR in Platelet poor plasma by Coagulation assayon 12-04-2024 INR Coag (PPP) [Relative time] INR in Platelet poor plasma by Coagulation assay [facility] Comment on above: DESIRED INR:2.0-3.0 CONDITIONS NOT LISTED BELOW2.5-3.5 FOR PROSTHETIC HEART VALVE REPLACEMENT2.5-3.5 RECURRENT THROMBOSIS Laboratory - Chemistry and C hemistry - challengeon 12-04-2024 Albumin [Mass/Vol] 2.7 g/dL Low 3.4-5.0 [facility] ALP [Catalytic activity/Vol] 111 U/L 46-116 [facility] ALT [Catalytic activity/Vol] 19 U/L 14-59 [facility] AST [Catalytic activity/Vol] 16 U/L 15-37 [facility] Bilirubin [Mass/Vol] 0.6 mg/dL 0.2-1.0 [facility] Calcium [Mass/Vol] 8.7 mg/dL 8.5-10.1 [facility] Chloride [Moles/Vol] 101 mmol/L 98-107 [facility] CO2 [Moles/Vol] 29.9 mmol/L 21.0-32.0 [facility] Creatinine [Mass/Vol] 1.24 mg/dL High 0.55-1.02 [facility] GFR/1.73 sq M.predicted MDRD (S/P/Bld) [Vol rate/Area] 51 mL/min/{1.73_m2} Low >=60 mL/min/1.73 m 2 [facility] Glucose [Mass/Vol] 310 mg/dL High 74-106 [facility] Natriuretic peptide B (Bld) [Mass/Vol] 3884.0 pg/mL Critically high <=1800.0 [facility] Comment on above: RESULTS CALLED TO AMILCAR RANGEL RN Potassium [Moles/Vol] 4.3 mmol/L 3.5-5.1 [facility] Protein [Mass/Vol] 7.0 g/dL 6.4-8.2 [facility] Sodium [Moles/Vol] 138 mmol/L 136-145 [facility] Urea nitrogen [Mass/Vol] 28.0 mg/dL High 7.0-18.0 [facility] Urea nitrogen/Creatinine [Mass ratio] 22.6 mg/mg [facility] Laboratory - Hematology and Cell countson 12-04-2024 Immature granulocytes/100 WBC (Bld) 0.2 % 0.0-0.5 [facility] Leukocytes [#/volume] correc gali for nucleated erythrocytes in Blood by Automated counon 12-04-2024 WBC corrected for nucl RBC Auto (Bld) [#/Vol] Leukocytes [#/volume] corrected for nucleated erythrocytes in Blood by Automated coun 4.0-11.0 [facility] Lymphocytes Auto (Bld) [#/Vo l]on 12-04-2024 Lymphocytes (Bld) [#/Vol] Lymphocytes [#/volume] in Blood by Automated count 1.2-3.8 [facility] Lymphocytes/100 WBC Auto (Bl d)on 12-04-2024 Lymphocytes/100 WBC (Bld) Lymphocytes/100 leukocytes in Blood by Automated count Low 20.5-60.0 [facility] MCH Auto (RBC) [Entitic mass ]on 12-04-2024 MCH (RBC) [Entitic mass] MCH [Entitic mass] by Automated count 26.7-34.0 [facility] MCHC Auto (RBC) [Mass/Vol]on 12-04-2024 MCHC (RBC) [Mass/Vol] MCHC [Mass/volume] by Automated count 29.9-35.2 [facility] MCV Auto (RBC) [Entitic vol] on 12-04-2024 MCV (RBC) [Entitic vol] MCV [Entitic volume] by Automated count 81.0-99.0 [facility] Monocytes Auto (Bld) [#/Vol] on 12-04-2024 Monocytes (Bld) [#/Vol] Automated blood monocyte count 0.3-0.8 [facility] Monocytes/100 WBC Auto (Bld) on 12-04-2024 Monocytes/100 WBC (Bld) Automated monocyte % 1.7-12.0 [facility] Neutrophils Auto (Bld) [#/Vo l]on 12-04-2024 Neutrophils (Bld) [#/Vol] Neutrophils [#/volume] in Blood by Automated count 1.4-6.5 [facility] Neutrophils/100 WBC Auto (Bl d)on 12-04-2024 Neutrophils/100 WBC (Bld) Automated neutrophil % 43.0-75.0 [facility] No Panel Informationon 12-04 Eosinophils # (Auto) 0.1 10 3/uL 0.0-0.7 [facility] Immature Granulocyte # (Auto) 0.02 10 3/uL 0.00-0.03 [facility] Troponin I High Sensitivity 19.6 pg/mL 4.0-51.3 [facility] Comment on above: CUT-OFF POINTS HAVE BEEN [...] volume] in Blood by Automated count 9.5-13.5 [facility] Platelets Auto (Bld) [#/Vol] on 12-04-2024 Platelets (Bld) [#/Vol] Platelets [#/volume] in Blood by Automated count 150-450 [facility] Prothrombin time (PT)on 11-13 PT Coag (PPP) [Time] Prothrombin time (PT) High 9.0- 11.6 [facility] RBC Auto (Bld) [#/Vol]on RBC (Bld) [#/Vol] Erythrocytes [#/volu me] in Blood by Automated count Low 4.20-5.40 [facility] Serum or plasma albumin/glob ulin mass ratioon 12-04-2024 Albumin/Globulin [Mass ratio] Serum or plasma albumin/globulin mass ratio [facility] Serum or plasma anion gap de terminationon 12-04-2024 Anion gap [Moles/Vol] Serum or plasma an ion gap determination [facility] Office Visiton 12-02-2024 Follow-up visit [id number] Joe Call 1945 F Date Provider Department Center 12/02/2024 [id number] LUNA LOVE [place] Family History Problem Relation Age of Onset Coronary artery disease Other Diabetes Other Polycystic kidney disease Other Family Status - Relation Status Age at Other Level of Service:27602 [place] OFFICE/OUTPATIENT ESTABLISHED MOD MDM 30 MIN Reason for Visit and Comments: Atrial Fibrillation [80] Congestive Heart Failure [127] - Had BMP 3 weeks ago. Taking lasix PRN. Hypertension [913401] Bradycardia [502144] Normal [facility] 36on 11-18-2024 36 Regarding lab result s from 11/03/2024: MD Brooke Sawyer MA Creatinine appears to be better. Patient's made aware. Normal [facility] Ambulatory Visit Summaryon 0 11-13-2024 Ambulatory Visit Summary Ambulatory Visit Summary JOE CALL :1945 Visit Date:11/13/2024 Ambulatory Visit Instructions Your Diagnosis Urine retention Your Care Team Attending Physician - STU GARAY, FRANCHESCA Alvarado Primary Care Physician - SHANTEL STEVEN MD [...] FRANCHESCA PERAZA PA-C Where: [facility] [address] [address] 2024 11:20 AM EST With: FRANCHESCA PERAZA PA-C Where: [facility] [address] [address]- Medications What How Much When Why Instructions [...] for choosing us for your care. Normal [facility] Estimated glomerular filtrat ion rate (GFR) non- Americanon 11-10-2024 GFR/1.73 sq M.predicted among non-blacks MDRD (S/P/Bld) [Vol rate/Area] Estimated glomerular filtration rate (GFR) non- Low >=60 mL/min/1.73 m 2 [facility] Laboratory - Chemistry and C hemistry - challengeon 11-10-2024 Albumin [Mass/Vol] 3.0 g/dL Low 3.4-5.0 [facility] Calcium [Mass/Vol] 8.5 mg/dL 8.5-10.1 [facility] Chloride [Moles/Vol] 99 mmol/L 98-107 [facility] CO2 [Moles/Vol] 26.2 mmol/L 21.0-32.0 [facility] Creatinine [Mass/Vol] 2.00 mg/dL High 0.55-1.02 [facility] GFR/1.73 sq M.predicted MDRD (S/P/Bld) [Vol rate/Area] 29 mL/min/{1.73_m2} Low >=60 mL/min/1.73 m 2 [facility] Glucose [Mass/Vol] 424 mg/dL High 74-106 [facility] Potassium [Moles/Vol] 4.5 mmol/L 3.5-5.1 [facility] Sodium [Moles/Vol] 136 mmol/L 136-145 [facility] Urea nitrogen [Mass/Vol] 58.0 mg/dL High 7.0-18.0 [facility] Urea nitrogen/Creatinine [Mass ratio] 29.0 mg/mg [facility] No Panel Informationon 11-10 Phosphorus Level 3.6 mg/dL 2.6-4.7 [facility] Serum or plasma anion gap de terminationon 11-10-2024 Anion gap [Moles/Vol] Serum or plasma an ion gap determination [facility] Urology Office/Clinic Noteon 11-04-2024 Urology Office/Clinic Note Urology Office/Clinic Note Chief Complaint Hospital follow up HPI Staff Pt. did see Dr. Gallardo about 20 years ago Admitted [facility] 10/16 after going to ER for weakness/SOB [...] note of the bladder scan anywhere on [facility] system or output volume once peacock placed). [...] it well. Follows w nephrology for CKD. Picker Machine Operator 10/25/24 1.31 compared to 3.06 on 10/20/24 [...] E&M of New Patient High 60-74 Min 80492 2. CKD (chronic kidney disease) (N18.9: Chronic kidney disease, unspecified) Follows w Dr Rapp Picker Machine Operator 1.31 on day of dc (10/25/24) Most recent labs 11/03/24 - BUN 34 [employer] Machine Operator 1.86 GFR 26 Pretty variable all year. (Results scanned into documents) Will repeat in 1 week after peacock removal. Sees Dr Rapp either 11/10 or 11/11. Ordered: E&M of New Patient High 60-74 Min 90146 Renal Function Panel 3. Stress incontinence (N39.3: Stress incontinence (female) (male)) At baseline. Typically when stands from seated position or coughing. 2-4 pads per day. Reassess baseline sx at f/u in 4-6 wks. Ordered: E&M of New Patient High 60-74 Min 92531 Total time spent reviewing previous notes/results/external documents, preparing the chart, conducting the encounter with the patient and family, ordering tests/medications, and documenting the encounter was 60 minutes. Follow-up With When Contact Information SYDNIE AHSSAN Within 6 weeks [address] [place] [address] Business (1) Additional Instructions: Patient [...] acetaminophen-oxycodone 3 (more content not included)... Normal [facility] Comment on above: Result Comment: Elec tronically Signed By: FRANCHESCA PERAZA PA-C\Date and Time Signed: 11/04/24 11:13 EST Estimated glomerular filtrat ion rate (GFR) non- Americanon 11-03-2024 GFR/1.73 sq M.predicted among non-blacks MDRD (S/P/Bld) [Vol rate/Area] Estimated glomerular filtration rate (GFR) non- Low >=60 mL/min/1.73 m 2 [facility] Laboratory - Chemistry and C hemistry - challengeon 11-03-2024 Calcium [Mass/Vol] 8.8 mg/dL 8.5-10.1 [facility] Chloride [Moles/Vol] 99 mmol/L 98-107 [facility] CO2 [Moles/Vol] 23.1 mmol/L 21.0-32.0 [facility] Creatinine [Mass/Vol] 1.86 mg/dL High 0.55-1.02 [facility] GFR/1.73 sq M.predicted MDRD (S/P/Bld) [Vol rate/Area] 32 mL/min/{1.73_m2} Low >=60 mL/min/1.73 m 2 [facility] Glucose [Mass/Vol] 367 mg/dL High 74-106 [facility] Potassium [Moles/Vol] 4.7 mmol/L 3.5-5.1 [facility] Sodium [Moles/Vol] 134 mmol/L Low 136-145 [facility] Urea nitrogen [Mass/Vol] 34.0 mg/dL High 7.0-18.0 [facility] Urea nitrogen/Creatinine [Mass ratio] 18.3 mg/mg [facility] Serum or plasma anion gap de terminationon 11-03-2024 Anion gap [Moles/Vol] Serum or plasma an ion gap determination [facility] Office Visiton 10-31-2024 Follow-up visit [id number] Joe Call 1945 F Date Provider Department Center 10/31/2024 [id number] LUNA [facility] Family History Problem Relation Age of Onset Coronary artery disease Other Diabetes Other Polycystic kidney disease Other Family Status - Relation Status Age at Other Level of Service:[address] [place] OFFICE/OUTPATIENT ESTABLISHED MOD MDM 30 MIN Normal [facility] B-Type Natriuretic Peptideon 10-25-2024 Natriuretic peptide B (Bld) [Mass/Vol] 455.0 pg/mL High 5-100 [facility] Comment on above: Result Comment: PERF ORMED BY: [facility] [address] [place] [address] PATHOLOGIST COILED TUBING OPERATOR MAY HYDE M.D. Performed By: #### G LULS #### Point of Care testing , Basic Metabolic Panelon 10-12 Anion gap [Moles/Vol] 13.0 mmol/L Normal 6.0-15.0 e [facility] Comment on above: Performed By: #### G LULS #### Point of Care testing , Calcium [Mass/Vol] 8.6 mg/dL Normal 8.6-10.3 [facility] Comment on above: Performed By: #### G LULS #### Point of Care testing , Chloride [Moles/Vol] 101 mmol/L Normal 98-107 [facility] Comment on above: Performed By: #### G LULS #### Point of Care testing , CO2 [Moles/Vol] 23.8 mmol/L Normal 21.0-31.0 [facility] Comment on above: Performed By: #### G LULS #### Point of Care testing , Creatinine [Mass/Vol] 1.31 mg/dL High 0.60-1.20 [facility] Comment on above: Performed By: #### G LULS #### Point of Care testing , Creatinine Clr Calc Pharmacy 46.58 Normal [facility] Comment on above: Result Comment: PERF ORMED BY: [facility] [address] [place] [address] PATHOLOGIST COILED TUBING OPERATOR MAY HYDE M.D. Performed By: #### G LULS #### Point of Care testing , Estimated GFR 41.704 mL/Min Normal [facility] Comment on above: Performed By: #### G LULS #### Point of Care testing , Glucose [Mass/Vol] 232 mg/dL High 70-100 [facility] Comment on above: Result Comment: [place] Glucose Reference Range is dependent on time and content of last meal. Glucose of more than 200 mg/dL in a nonstressed, ambulatory subject supports the diagnosis of Diabetes Mellitus. ADA recommended reference range Performed By: #### G LULS #### Point of Care testing , Potassium [Moles/Vol] 4.8 mmol/L Normal 3.5-5.1 [facility] Comment on above: Performed By: #### G LULS #### Point of Care testing , Sodium [Moles/Vol] 133 mmol/L Low 136-145 [facility] Comment on above: Performed By: #### G LULS #### Point of Care testing , Urea nitrogen [Mass/Vol] 39 mg/dL High 7-25 [facility] Comment on above: Performed By: #### G LULS #### Point of Care testing , Basophils Auto (Bld) [#/Vol] Ordered By: Daniele Jane on 10-25-2024 Basophils (Bld) [#/Vol] Automated basophil count 0.0-0.2 [facility] Basophils/100 WBC Auto (Bld) Ordered By: Daniele Jane on 10-25-2024 Basophils/100 WBC (Bld) Automated basophil % . [facility] COVID CepheidOrdered By: Trino Jnae on 10-25-2024 SARS-CoV-2 (COVID-19) Ab IA Ql COVID Cepheid Abnormal Negative [facility] Comment on above: This is a duplicate [...] or Cepheid Disclaimer revoked sooner. PERFORMED BY: [facility] [address] [place] [address] PATHOLOGIST COILED TUBING OPERATOR MAY HYDE M.D. Normal [facility] Comment on above: Performed By: #### C OVID19 FLU RSV, CEPHEID POS #### [facility] [address] [place] [address] [facility] Calcium [Mass/volume] in Ser um or PlasmaOrdered By: Daniele Jane on 10-25-2024 Calcium [Mass/Vol] Calcium [Mass/volume ] in Serum or Plasma 8.6-10.3 [facility] Carbon dioxide, total [Moles /volume] in Serum or PlasmaOrdered By: Daniele Jane on 10-25-2024 CO2 [Moles/Vol] Carbon dioxide, tota l [Moles/volume] in Serum or Plasma 21.0-31.0 [facility] Cepheid COVID PCR Positiveon 10-25-2024 SARS-CoV-2 (COVID-19) RNA FERN+probe Ql (Unsp spec) Positive Critically abnormal Negative [facility] Comment on above: Result Comment: This is a duplicate Cepheid Xpert Xpress CoV-2/Flu/RSV Plus RNA by RT-PCR result to be used for statistical tracking purpose only. PERFORMED BY: [place] [address] PATHOLOGIST COILED TUBING OPERATOR MAY HYDE M.D. Performed By: #### C OVID19 FLU RSV, CEPHEID POS #### [facility] [address] Chloride [Moles/volume] in S oziel or PlasmaOrdered By: Daniele Jane on 10-25-2024 Chloride [Moles/Vol] Chloride [Moles/vol ume] in Serum or Plasma 98-107 [facility] Complete Blood Count Auto Di ffon 10-25-2024 Basophils (Bld) [#/Vol] 0.1 10*3/uL Normal 0.0-0.2 [facility] Comment on above: Result Comment: PERF ORMED BY: [facility] [address] [place] [address] PATHOLOGIST COILED TUBING OPERATOR MAY HYDE M.D. Performed By: #### G LULS #### Point of Care testing , Basophils/100 WBC (Bld) 0.9 % Normal . [facility] Comment on above: Performed By: #### G LULS #### Point of Care testing , Eosinophils (Bld) [#/Vol] 0.1 10*3/uL Normal 0.0-0.45 [facility] Comment on above: Performed By: #### G LULS #### Point of Care testing , Eosinophils/100 WBC (Bld) 1.5 % Normal . [facility] Comment on above: Performed By: #### G LULS #### Point of Care testing , Erythrocyte distribution width (RBC) [Ratio] 15.3 % Normal 11.9-15.3 [facility] Comment on above: Performed By: #### G LULS #### Point of Care testing , Hematocrit (Bld) [Volume fraction] 36.2 % Normal 34.0-46.4 [facility] Comment on above: Performed By: #### G LULS #### Point of Care testing , Hemoglobin (Bld) [Mass/Vol] 12.2 g/dL Normal 11.8-15.4 [facility] Comment on above: Performed By: #### G LULS #### Point of Care testing , Lymphocytes (Bld) [#/Vol] 0.8 10*3/uL Low 1.00-4.8 [facility] Comment on above: Performed By: #### G LULS #### Point of Care testing , Lymphocytes/100 WBC (Bld) 9.8 % Normal . [facility] Comment on above: Performed By: #### G LULS #### Point of Care testing , MCH (RBC) [Entitic mass] 29.5 pg Normal 24.7-34.3 [facility] Comment on above: Performed By: #### G LULS #### Point of Care testing , MCV (RBC) [Entitic vol] 87.6 fL Normal 80-100 [facility] Comment on above: Performed By: #### G LULS #### Point of Care testing , Mean Corpuscular HGB Conc 33.7 g/dL Normal 32.0-35.0 [facility] Comment on above: Performed By: #### G LULS #### Point of Care testing , Monocytes (Bld) [#/Vol] 0.8 10*3/uL Normal 0.0-0.8 [facility] Comment on above: Performed By: #### G LULS #### Point of Care testing , Monocytes/100 WBC (Bld) 25.33 % High 0.00-20.00 [facility] Comment on above: Result Comment: For adults in ED, MDW > 20.0 may be associated with a higher risk of sepsis during the first 12 hrs of hospital admission Performed By: #### G LULS #### Point of Care testing , Monocytes/100 WBC (Bld) 10.7 % Normal . [facility] Comment on above: Performed By: #### G LULS #### Point of Care testing , Neutrophils (Bld) [#/Vol] 6.1 10*3/uL Normal 1.8-7.7 [facility] Comment on above: Performed By: #### G LULS #### Point of Care testing , Neutrophils/100 WBC (Bld) 77.1 % Normal . The [facility] Comment on above: Performed By: #### G LULS #### Point of Care testing , NRBC% 0.1 /100{WBC} Normal 0-0.5 The [facility] Comment on above: Performed By: #### G LULS #### Point of Care testing , Platelet mean volume (Bld) [Entitic vol] 9.0 fL Normal 6.3-10.7 The [facility] Comment on above: Performed By: #### G LULS #### Point of Care testing , Platelets (Bld) [#/Vol] 142 10*3/uL Low 150-450 [facility] Comment on above: Performed By: #### G LULS #### Point of Care testing , RBC (Bld) [#/Vol] 4.13 10*6/uL Normal 3.60-5.00 The [facility] Comment on above: Performed By: #### G LULS #### Point of Care testing , WBC (Bld) [#/Vol] 7.9 10*3/uL Normal 3.8-11.6 The [facility] Comment on above: Performed By: #### G LULS #### Point of Care testing , Creatinine [Mass/volume] in Serum or PlasmaOrdered By: Daniele Jane on 10-25-2024 Creatinine [Mass/Vol] Creatinine [Mass/v olume] in Serum or Plasma High 0.60-1.20 [facility] ECG 12 lead ECGon 10-25-2024 ECG 12 lead ECG [facility] [place] [address] Electrocardiograph Report Signed Patient: Joe Call MR#: [id number] 0 : 1945 Acct:[id number] Age/Sex: 79 / F ADM Date: 10/25/24 Loc: ER Room: Type: [facility] ER Attending Dr: Ordering Provider: Daniele Jane [...] sinus arrhythmia Confirmed by Daniele Jane DO ([id number]) on 10/25/2024 2:01:48 PM Referred By: Electronically Signed By: Daniele Jane DO Transcribed By: MUS Signed By Daniele Jane DO 1401 Normal [facility] Eosinophils Auto (Bld) [#/Vo l]Ordered By: Daniele Jane on 10-25-2024 Eosinophils (Bld) [#/Vol] Automated eosinophil count 0.0-0.45 [facility] Eosinophils/100 WBC Auto (Bl d)Ordered By: Daniele Jane on 10-25-2024 Eosinophils/100 WBC (Bld) Automated eosinophil % . [facility] Erythrocyte distribution wid th Auto (RBC) [Ratio]Ordered By: Daniele Jane on 10-25-2024 Erythrocyte distribution width (RBC) [Ratio] Erythrocyte distribution width [Ratio] by Automated count 11.9-15.3 [facility] Glucose [Mass/volume] in Ser um or PlasmaOrdered By: Daniele Jane on 10-25-2024 Glucose [Mass/Vol] Glucose [Mass/volume ] in Serum or Plasma High 70-100 [facility] Comment on above: ADA recommended refe rence rangeRandom Glucose Reference Range is dependent on time and content of last meal. Glucose of more than 200 mg/dL in a nonstressed, ambulatory subject supports the diagnosis of Diabetes Mellitus. Hematocrit Auto (Bld) [Volum e fraction]Ordered By: Daniele Jane on 10-25-2024 Hematocrit (Bld) [Volume fraction] Hematocrit [Volume Fraction] of Blood by Automated count 34.0-46.4 [facility] Hemoglobin [Mass/volume] in BloodOrdered By: Daniele Jane on 10-25-2024 Hemoglobin (Bld) [Mass/Vol] Hemoglobin [Mass/volume] in Blood 11.8-15.4 [facility] INR in Platelet poor plasma by Coagulation assayOrdered By: Daniele Jane on 10-25-2024 INR Coag (PPP) [Relative time] INR in Platelet poor plasma by Coagulation assay [facility] Comment on above: INR Therapeutic Rang e [...] erythrocytes in Blood by Automated coun 3.8-11.6 [facility] Lymphocytes Auto (Bld) [#/Vo l]Ordered By: Daniele Jane on 10-25-2024 Lymphocytes (Bld) [#/Vol] Lymphocytes [#/volume] in Blood by Automated count Low 1.00-4.8 [facility] Lymphocytes/100 WBC Auto (Bl d)Ordered By: Daniele Jane on 10-25-2024 Lymphocytes/100 WBC (Bld) Lymphocytes/100 leukocytes in Blood by Automated count . [facility] MCH Auto (RBC) [Entitic mass ]Ordered By: Daniele Jane on 10-25-2024 MCH (RBC) [Entitic mass] MCH [Entitic mass] by Automated count 24.7-34.3 [facility] MCHC Auto (RBC) [Mass/Vol]Or dered By: Daniele Jane on 10-25-2024 MCHC (RBC) [Mass/Vol] MCHC [Mass/volume] by Automated count 32.0-35.0 [facility] MCV Auto (RBC) [Entitic vol] Ordered By: Daniele Jane on 10-25-2024 MCV (RBC) [Entitic vol] MCV [Entitic volume] by Automated count 80-100 [facility] Monocyte distribution width [Entitic volume] in Blood by AutomatedOrdered By: Daniele Jane on 10-25-2024 Monocyte distribution width Auto (Bld) [Entitic vol] Monocyte distribution width [Entitic volume] in Blood by Automated High 0.00-20.00 [facility] Comment on above: For adults in ED, MD W > 20.0 may be associated with a higher risk of sepsis during the first 12 hrs of hospital admission Monocytes Auto (Bld) [#/Vol] Ordered By: Daniele Jane on 10-25-2024 Monocytes (Bld) [#/Vol] Automated blood monocyte count 0.0-0.8 [facility] Monocytes/100 WBC Auto (Bld) Ordered By: Daniele Jane on 10-25-2024 Monocytes/100 WBC (Bld) Automated monocyte % . [facility] Natriuretic peptide B [Mass/ Vol]Ordered By: Daniele Jane on 10-25-2024 Natriuretic peptide B (Bld) [Mass/Vol] BNP ser/plas High 5-100 [facility] Neutrophils Auto (Bld) [#/Vo l]Ordered By: Daniele Jane on 10-25-2024 Neutrophils (Bld) [#/Vol] Neutrophils [#/volume] in Blood by Automated count 1.8-7.7 [facility] Neutrophils/100 WBC Auto (Bl d)Ordered By: Daniele Jane on 10-25-2024 Neutrophils/100 WBC (Bld) Automated neutrophil % . [facility] No Panel InformationOrdered By: Daniele Jane on 10-25-2024 Estimated GFR (CKD-EPI) 41.704 mL/Min [facility] Pharmacy Creatinine Clearance (Chem 46.58 [facility] Nucleated erythrocytes [Pres ence] in Blood by Automated countOrdered By: Daniele Jane on 10-25-2024 Nucleated RBC Auto Ql (Bld) Nucleated erythrocytes [Presence] in Blood by Automated count 0-0.5 [facility] Partial Thromboplastin Timeo n 10-25-2024 aPTT Coag (Bld) [Time] 28.6 s Normal 25.1-36.5 Th e [facility] Comment on above: Result Comment: A he matocrit value greater than 55% may lead to inaccurate results in coagulation testing. Patients having hematocrit values >55% require a special collection tube for coagulation studies. Please contact the laboratory at [phone] for redraw instructions. PERFORMED BY: [facility] [address] [place] [address] PATHOLOGIST COILED TUBING OPERATOR MAY HYDE M.D. Performed By: #### G LULS #### Point of Care testing , Platelet mean volume Auto (B ld) [Entitic vol]Ordered By: Daniele Jane on 10-25-2024 Platelet mean volume (Bld) [Entitic vol] Platelet mean volume [Entitic volume] in Blood by Automated count 6.3-10.7 [facility] Platelets Auto (Bld) [#/Vol] Ordered By: Daniele Jane on 10-25-2024 Platelets (Bld) [#/Vol] Platelets [#/volume] in Blood by Automated count Low 150-450 [facility] Potassium [Moles/volume] in Serum or PlasmaOrdered By: Daniele Jane on 10-25-2024 Potassium [Moles/Vol] Potassium [Moles/v olume] in Serum or Plasma 3.5-5.1 [facility] Prothrombin Time INRon 10-25 INR Coag (PPP) [Relative time] 1.2 {INR} Normal [facility] Comment on above: [...] (PPP) [Time] 13.5 s High 9.0-12.9 [facility] Comment on above: Result Comment: A he matocrit value greater than 55% may lead to inaccurate results in coagulation testing. Patients having hematocrit values >55% require a special collection tube for coagulation studies. Please contact the laboratory at [phone] for redraw instructions. Performed By: #### G LULS #### Point of Care testing , Prothrombin time (PT)Ordered By: Daniele Jane on 10-25-2024 PT Coag (PPP) [Time] Prothrombin time (PT) High 9.0- 12.9 [facility] Comment on above: A hematocrit value g reater than 55% may lead to inaccurate results in coagulation testing. Patients having hematocrit values >55% require a special collection tube for coagulation studies. Please contact the laboratory at [phone] for redraw instructions. RBC Auto (Bld) [#/Vol]Ordere d By: Daniele Jane on 10-25-2024 RBC (Bld) [#/Vol] Erythrocytes [#/volu me] in Blood by Automated count 3.60-5.00 [facility] Respiratory specimen influen za A virus, influenza B virus, respiratory syncytical virOrdered By: Daniele Jane on 10-25-2024 SARS-CoV-2 (COVID-19) RNA FERN+probe Ql (Unsp spec) Respiratory specimen influenza A virus, influenza B virus, respiratory syncytical vir [facility] SARS-CoV-2 (COVID-19) RNA FERN+probe Ql (Unsp spec) Respiratory specimen influenza A virus, influenza B virus, respiratory syncytical vir [facility] Serum or plasma anion gap de terminationOrdered By: Daniele Jane on 10-25-2024 Anion gap [Moles/Vol] Serum or plasma an ion gap determination 6.0-15.0 [facility] Sodium [Moles/volume] in Ser um or PlasmaOrdered By: Daniele Jane on 10-25-2024 Sodium [Moles/Vol] Sodium [Moles/volume ] in Serum or Plasma Low 136-145 [facility] Troponin I High Sensitivityo n 10-25-2024 Troponin I High Sensitivity 14.6 pg/mL Normal 0.0-15.0 [facility] Comment on above: Result Comment: PERF ORMED BY: [address] [address] PATHOLOGIST COILED TUBING OPERATOR MAY HYDE M.D. Performed By: #### G LULS #### Point of Care testing , Troponin I.cardiac [Mass/vol ume] in Serum or Plasma by Detection limit <= 0.01 ng/Ordered By: Daniele Jane on 10-25-2024 Troponin I.cardiac DL <= 0.01 ng/mL [Mass/Vol] Troponin I.cardiac [Mass/volume] in Serum or Plasma by Detection limit <= 0.01 ng/ 0.0-15.0 [facility] Urea nitrogen [Mass/volume] in Serum or PlasmaOrdered By: Daniele Jane on 10-25-2024 Urea nitrogen [Mass/Vol] Urea nitrogen [Mass/volume] in Serum or Plasma High 7-25 [facility] WBC Auto (Bld) [#/Vol]Ordere d By: Daniele Jane on 10-25-2024 WBC (Bld) [#/Vol] Leukocytes [#/volume ] in Blood by Automated count 3.8-11.6 [facility] XR chest 1V portableon 10-25 XR chest 1V portable [facility] [address] [place] [address] [place] [address] XRay Report Signed Patient: Joe Call MR#: [id number] 0 : 1945 Acct:[id number] Age/Sex: 79 / F ADM Date: 10/25/24 Loc: ER Room: Type: [facility] ER Attending Dr: Copies to: Daniele [...] Jarred Randolph M.D.10/25/2024 7:35 AM Dictation Location: [place] [address] Transcribed By: [facility] 10/25/24 0735 Dictated By: Jarred Randolph DO 10/25/24 0734 Signed By: 10/25/24 0735 Normal [facility] aPTT in Platelet poor plasma by Coagulation assayOrdered By: Daniele Jane on 10-25-2024 aPTT Coag (PPP) [Time] Activated partial thromboplastin time (aPTT) in platelet poor plasma by coagulation a 25.1-36.5 [facility] Comment on above: A hematocrit value g reater than 55% may lead to inaccurate results in coagulation testing. Patients having hematocrit values >55% require a special collection tube for coagulation studies. Please contact the laboratory at [phone] for redraw instructions. Appearance of UrineOrdered B y: Zhang Norwood on 10-22-2024 Appearance (U) Urine appearance Abnormal Clear [facility] Bacteria [Presence] in Urine by AutomatedOrdered By: Zhang Norwood on 10-22-2024 Bacteria Auto Ql (U) Bacteria [Presence] in Urine by Automated None Seen [facility] Bilirubin Test strip Ql (U)O rdered By: Zhang Norwood on 10-22-2024 Bilirubin Ql (U) Bilirubin.total [Presence] in Urine by Test strip Negative [facility] Calcium oxalate crystals [Pr esence] in Urine by Computer assisted methodOrdered By: Zhang Norwood on 10-22-2024 Calcium oxalate crystals Computer assisted Ql (U) Calcium oxalate crystals [Presence] in Urine by Computer assisted method [facility] Color Auto (U)Ordered By: Renetta Norwood on 10-22-2024 Color (U) Color of Urine by Auto Yellow [facility] Dipstick and Microscopicon 1 12-23-2023 Appearance (U) Cloudy Critically abnormal Clear [facility] Comment on above: Order Comment: Name Collection Type:: Peacock Catheter Performed By: #### M G, BMP #### [address] Bacteria,Urine None Seen Normal None Seen The [facility] Comment on above: Order Comment: Name Collection Type:: Peacock Catheter Performed By: #### M G, BMP #### [address] Bilirubin,Urine Negative Normal Negative The [facility] Comment on above: Order Comment: Name Collection Type:: Peacock Catheter Performed By: #### M G, BMP #### [facility] [address] [place] [address] [place] Calcium Oxalate Crystals,Urine Rare Normal [facility] Comment on above: Order Comment: Name Collection Type:: Peacock Catheter Performed By: #### M G, BMP #### [facility] [address] [place], [place] [id number] [place] Color (U) Yellow Normal Yellow [facility] Comment on above: Order Comment: Name Collection Type:: Peacokc Catheter Performed By: #### M G, BMP #### [facility] [address] [place], [place] [address] [place] Glucose Ql (U) 30 mg/dL High Normal The [facility] Comment on above: Order Comment: Name Collection Type:: Peacock Catheter Performed By: #### M G, BMP #### [facility] [address] [place], [place] [address] [place] Hyaline Casts,Urine 0 [LPF] Normal 0-8 [facility] Comment on above: Order Comment: Name Collection Type:: Peacock Catheter Performed By: #### M G, BMP #### [address] Ketones Ql (U) Negative Normal Negative [facility] Comment on above: Order Comment: Name Collection Type:: Peacock Catheter Performed By: #### M G, BMP #### [address] Leukocyte esterase Test strip Ql (U) 1+ High Negative [facility] Comment on above: Order Comment: Name Collection Type:: Peacock Catheter Performed By: #### M G, BMP #### [place] [address] [place] Mucus,Urine Rare Normal [facility] Comment on above: Order Comment: Name Collection Type:: Pecaock Catheter Result Comment: PERF ORMED BY: [place] [address] PATHOLOGIST COILED TUBING OPERATOR MAY HYDE M.D. Performed By: #### M G, BMP #### [address] Nitrite,Urine Negative Normal Negative [facility] Comment on above: Order Comment: Name Collection Type:: Peacock Catheter Performed By: #### M G, BMP #### [place] [address] [place] Occult Blood,Urine 3+ High Negative [facility] Comment on above: Order Comment: Name Collection Type:: Peacock Catheter Result Comment: PERF ORMED BY: [place] [address] PATHOLOGIST COILED TUBING OPERATOR MAY HYDE M.D. Performed By: #### M G, BMP #### [place] [address] [place] pH (U) 5.5 [pH] Normal 5.0-9.0 [facility] Comment on above: Order Comment: Name Collection Type:: Peaccok Catheter Performed By: #### M G, BMP #### [place] [address] [place] Protein (U) [Mass/Vol] 300 mg/dL High Negative Th e [facility] Comment on above: Order Comment: Name Collection Type:: Peacock Catheter Performed By: #### M G, BMP #### [facility] [address] [place] [address] RBC,Urine Innumerable High 0-4 [facility] Comment on above: Order Comment: Name Collection Type:: Peacock Catheter Performed By: #### M G, BMP #### [address] Specificy [place],Urine 1.019 Normal 1.001-1.030 [facility] Comment on above: Order Comment: Name Collection Type:: Peacock Catheter Performed By: #### M G, BMP #### [address] Squamous Epithelial Cell,Urine 1 [HPF] Normal 0-2 [facility] Comment on above: Order Comment: Name Collection Type:: Peacock Catheter Performed By: #### M G, BMP #### [address] Urobilinogen,Urine Normal Normal Normal [facility] Comment on above: Order Comment: Name Collection Type:: Peacock Catheter Performed By: #### M G, BMP #### [address] WBC,Urine 10 [HPF] High 0-4 [facility] Comment on above: Order Comment: Name Collection Type:: Peacock Catheter Performed By: #### M G, BMP #### [address] Epithelial cells.squamous [# /area] in Urine sediment by Automated countOrdered By: Zhang Norwood on 10-22-2024 Epithelial cells.squamous Auto (Urine sed) [#/Area] Epithelial cells.squamous [#/area] in Urine sediment by Automated count 0-2 [facility] Erythrocytes [#/area] in Uri ne sediment by Automated countOrdered By: Zhang Norwood on 10-22-2024 RBC Auto (Urine sed) [#/Area] Erythrocytes [#/area] in Urine sediment by Automated count High 0-4 [facility] Glucose [Mass/volume] in Uri ne by Test stripOrdered By: Zhang Norwood on 10-22-2024 Glucose Test strip (U) [Mass/Vol] Glucose [Mass/volume] in Urine by Test strip High Normal [facility] Hemoglobin Test strip Ql (U) Ordered By: Zhang Norwood on 10-22-2024 Hemoglobin Ql (U) Hemoglobin [Presence ] in Urine by Test strip High Negative [facility] Hyaline casts [#/area] in Ur ine sediment by Automated countOrdered By: Zhang Norwood on 10-22-2024 Hyaline casts Auto (Urine sed) [#/Area] Hyaline casts [#/area] in Urine sediment by Automated count 0-8 [facility] Ketones Test strip Ql (U)Ord ered By: Zhang Norwood on 10-22-2024 Ketones Ql (U) Ketones [Presence] i n Urine by Test strip Negative [facility] Leukocyte esterase [Presence ] in Urine by Test stripOrdered By: Zhang Norwood on 10-22-2024 Leukocyte esterase Test strip Ql (U) Leukocyte esterase [Presence] in Urine by Test strip [facility] Negative [facility] Leukocytes [#/area] in Urine sediment by Automated countOrdered By: Zhang Norwood on 10-22-2024 WBC Auto (Urine sed) [#/Area] Leukocytes [#/area] in Urine sediment by Automated count High 0-4 [facility] Mucus [Presence] in Urine by AutomatedOrdered By: Zhang Norwood on 10-22-2024 Mucus Auto Ql (U) Mucus [Presence] in Urine by Automated [facility] Nitrite Test strip Ql (U)Ord ered By: Zhang Norwood on 10-22-2024 Nitrite Ql (U) Nitrite [Presence] i n Urine by Test strip Negative [facility] Protein Test strip (U) [Mass /Vol]Ordered By: Zhang Norwood on 10-22-2024 Protein (U) [Mass/Vol] Protein [Mass/vol ume] in Urine by Test strip High Negative [facility] Specific gravity Test strip (U) [Rel density]Ordered By: Zhang Norwood on 10-22-2024 Specific gravity (U) [Rel density] Specific gravity of Urine by Test strip 1.001-1.030 [facility] Urine Cultureon 10-22-2024 Bacteria identified Cx Nom (U) 15,000 colonies/ml mixed bacterial skin contaminants 2 Days PERFORMED BY: [place] [address] PATHOLOGIST COILED TUBING OPERATOR MAY HYDE M.D. Normal [facility] Comment on above: Performed By: #### M G, BMP #### [address] Urine cultureOrdered By: Hortensia Norwood on 10-22-2024 Bacteria identified Cx Nom (U) Urine culture [facility] Bacteria identified Cx Nom (U) Urine culture [facility] Urobilinogen Test strip (U) [Mass/Vol]Ordered By: Zhang Norwood on 10-22-2024 Urobilinogen (U) [Mass/Vol] Urobilinogen [Mass/volume] in Urine by Test strip Normal [facility] pH Test strip (U)Ordered By: Zhang Norwood on 10-22-2024 pH (U) pH of Urine by Test strip 5.0-9.0 [facility] A1C with Estimated Average Bela hansen 10-20-2024 Glucose [Mass/Vol] 292 mg/dL Normal [facility] Comment on above: Result Comment: PERF ORMED BY: [place] [address] PATHOLOGIST COILED TUBING OPERATOR MAY HYDE M.D. Performed By: #### A 1C WT eA #### [place] [id number] [facility] HbA1c (Bld) [Mass fraction] 11.8 % High 4.3-5.6 [facility] Comment on above: Result Comment: Incr eased risk for diabetes: 5.7 - 6.4 diabetes: >6.4 glycemic control for adults with diabetes: <7.0 Performed By: #### A 1C WTH eA #### [address] [address] [facility] Basic Metabolic Panelon Anion gap [Moles/Vol] Not performed Normal 6.0-15.0 [facility] Comment on above: Performed By: #### M G, BMP #### [facility] [address] Calcium [Mass/Vol] 8.7 mg/dL Normal 8.6-10.3 [facility] Comment on above: Performed By: #### M G, BMP #### [facility] [address] [place] [address] [place] Chloride [Moles/Vol] 97 mmol/L Low 98-107 [facility] Comment on above: Performed By: #### M G, BMP #### [facility] [address] CO2 [Moles/Vol] 26.0 mmol/L Normal 21.0-31.0 The [facility] Comment on above: Performed By: #### M G, BMP #### [facility] [address] Creatinine [Mass/Vol] 3.06 mg/dL High 0.60-1.20 [facility] Comment on above: Performed By: #### M G, BMP #### [facility] [address] [place] [address] [place] Creatinine Clr Calc Pharmacy 18.79 Normal [facility] Comment on above: Performed By: #### M G, BMP #### [facility] [address] [place] [id number] [facility] Estimated GFR 15.067 mL/Min Normal The [facility] Comment on above: Performed By: #### M G, BMP #### [facility] [address] Glucose [Mass/Vol] 159 mg/dL Significant change up 70-100 [facility] Comment on above: Result Comment: [place] Glucose Reference Range is dependent on time and content of last meal. Glucose of more than 200 mg/dL in a nonstressed, ambulatory subject supports the diagnosis of Diabetes Mellitus. ADA recommended reference range Performed By: #### M G, BMP #### [facility] [address] Potassium Normal 3.5-5.1 [facility] Comment on above: Result Comment: Spec imen hemolyzed, redraw requested Performed By: #### M G, BMP #### [facility] [address] Sodium Normal 136-145 [facility] Comment on above: Result Comment: Spec imen hemolyzed, redraw requested Performed By: #### M G, BMP #### [facility] [address] [place] [address] [place] Urea nitrogen [Mass/Vol] 91 mg/dL High 7-25 [facility] Comment on above: Performed By: #### M G, BMP #### [facility] [address] Blood estimated average gluc ose determination by estimation from glycated hemoglobinOrdered By: Kavin Escobar on 10-20-2024 Average glucose Estimated from glycated hemoglobin (Bld) [Mass/Vol] Glucose mean value [Mass/volume] in Blood Estimated from glycated hemoglobin [facility] Calcium [Mass/volume] in Ser um or PlasmaOrdered By: Mauri Chavira on 10-20-2024 Calcium [Mass/Vol] Calcium [Mass/volume ] in Serum or Plasma 8.6-10.3 [facility] Carbon dioxide, total [Moles /volume] in Serum or PlasmaOrdered By: Mauri Chavira on 10-20-2024 CO2 [Moles/Vol] Carbon dioxide, tota l [Moles/volume] in Serum or Plasma 21.0-31.0 [facility] Chloride [Moles/volume] in S oziel or PlasmaOrdered By: Mauri Chavira on 10-20-2024 Chloride [Moles/Vol] Chloride [Moles/vol ume] in Serum or Plasma Low 98-107 [facility] Creatinine [Mass/volume] in Serum or PlasmaOrdered By: Mauri Chavira on 10-20-2024 Creatinine [Mass/Vol] Creatinine [Mass/v olume] in Serum or Plasma High 0.60-1.20 [facility] Glucose Glucometer (BldC) [M ass/Vol]Ordered By: Kavin Escobar on 10-20-2024 Glucose [Mass/Vol] Capillary blood gluc ose measurement by glucometer (mass/volume) [facility] Comment on above: Random Glucose Refer ence Range is dependent on time and content of last meal. Glucose of more than 200 mg/dL in a nonstressed, ambulatory subject supports the diagnosis of Diabetes Mellitus. Glucose Poct Glucometerson 1 12-21-2023 Glucose [Mass/Vol] 209 mg/dL Normal [facility] Comment on above: Result Comment: [place] om Glucose Reference Range is dependent on time and content of last meal. Glucose of more than 200 mg/dL in a nonstressed, ambulatory subject supports the diagnosis of Diabetes Mellitus. PERFORMED BY: [place] [address] PATHOLOGIST COILED TUBING OPERATOR MAY HYDE M.D. Performed By: #### C OVID19 FLU RSV, CEPHEID POS #### [facility] [address] [place] [id number] Glucose [Mass/Vol] 164 mg/dL Normal [facility] Comment on above: Result Comment: [place] Glucose Reference Range is dependent on time and content of last meal. Glucose of more than 200 mg/dL in a nonstressed, ambulatory subject supports the diagnosis of Diabetes Mellitus. PERFORMED BY: [place] [id number] PATHOLOGIST COILED TUBING OPERATOR MAY HYDE M.D. Performed By: #### M G, BMP #### [facility] [address] [place], [place] [id number] [place] Glucose [Mass/volume] in Ser um or PlasmaOrdered By: Mauri Chavira on 10-20-2024 Glucose [Mass/Vol] Glucose [Mass/volume ] in Serum or Plasma Invalid Interpretation Code 70-100 [facility] Comment on above: Delta: [id number] on [id number] recommended reference rangeRandom Glucose Reference Range is dependent on time and content of last meal. Glucose of more than 200 mg/dL in a nonstressed, ambulatory subject supports the diagnosis of Diabetes Mellitus. Hemoglobin A1c/Hemoglobin.to vinicio in BloodOrdered By: Kavin Escobar on 10-20-2024 HbA1c (Bld) [Mass fraction] Hemoglobin A1c percentage High 4.3-5.6 [facility] Comment on above: Increased risk for d iabetes: 5.7 - 6.4diabetes: >6.4glycemic control for adults with diabetes: <7.0 Magnesiumon 10-20-2024 Magnesium Normal 1.9-2.7 [facility] Comment on above: Result Comment: Spec imen hemolyzed, redraw requested PERFORMED BY: [place] [address] PATHOLOGIST COILED TUBING OPERATOR MAY HYDE M.D. Performed By: #### M Bela, BMP #### [address] Magnesium [Mass/volume] in S oziel or PlasmaOrdered By: Mauri Chavira on 10-20-2024 Magnesium [Mass/Vol] Magnesium [Mass/vol ume] in Serum or Plasma 1.9-2.7 [facility] No Panel InformationOrdered By: Mauri Chavira on 10-20-2024 Estimated GFR (CKD-EPI) 15.067 mL/Min [facility] Creatinine Clearance (Chem 18.79 [facility] Potassium [Moles/volume] in Serum or PlasmaOrdered By: Mauri Chavira on 10-20-2024 Potassium [Moles/Vol] Potassium [Moles/v olume] in Serum or Plasma 3.5-5.1 [facility] Redraw Magnesiumon Magnesium [Mass/Vol] 1.9 mg/dL Normal 1.9-2.7 [facility] Comment on above: Result Comment: PERF ORMED BY: [place] [address] PATHOLOGIST COILED TUBING OPERATOR MAY HYDE M.D. Performed By: #### Bela LULS #### Point of Care testing , Redraw Magnesium Normal 1.9-2.7 The [facility] Comment on above: Result Comment: Spec imen hemolyzed, redraw requested PERFORMED BY: [place] [address] PATHOLOGIST COILED TUBING OPERATOR MAY HYDE M.D. Performed By: #### C OVID19 FLU RSV, CEPHEID POS #### [address] Redraw Potassiumon Potassium [Moles/Vol] 4.0 mmol/L Normal 3.5-5.1 [facility] Comment on above: Performed By: #### G LULS #### Point of Care testing , Redraw Potassium Normal 3.5-5.1 [facility] Comment on above: Result Comment: Spec imen hemolyzed, redraw requested Performed By: #### C OVID19 FLU RSV, CEPHEID POS #### [address] Redraw Sodiumon 10-20-2024 Sodium [Moles/Vol] 134 mmol/L Low 136-145 [facility] Comment on above: Performed By: #### C OVID19 FLU RSV, CEPHEID POS #### [address] Serum or plasma anion gap de terminationOrdered By: Mauri Chavira on 10-20-2024 Anion gap [Moles/Vol] Serum or plasma an ion gap determination [facility] Comment on above: Test not performed Sodium [Moles/volume] in Ser um or PlasmaOrdered By: Mauri Chavira on 10-20-2024 Sodium [Moles/Vol] Sodium [Moles/volume ] in Serum or Plasma Low 136-145 [facility] Urea nitrogen [Mass/volume] in Serum or PlasmaOrdered By: Mauri Chavira on 10-20-2024 Urea nitrogen [Mass/Vol] Urea nitrogen [Mass/volume] in Serum or Plasma High 7-25 [facility] Basic Metabolic Panelon 12-0 Anion gap [Moles/Vol] 14.7 mmol/L Normal 6.0-15.0 Th e [facility] Comment on above: Performed By: #### M G, BMP #### [facility] [address] Calcium [Mass/Vol] 9.1 mg/dL Normal 8.6-10.3 [facility] Comment on above: Performed By: #### Vandana Cramer, BMP #### [address] Chloride [Moles/Vol] 95 mmol/L Low 98-107 [facility] Comment on above: Performed By: #### Vandana Cramer, BMP #### [address] CO2 [Moles/Vol] 28.6 mmol/L Normal 21.0-31.0 [facility] Comment on above: Performed By: #### Vandana Cramer, BMP #### [address] Creatinine [Mass/Vol] 2.71 mg/dL Significan t change up 0.60-1.20 [facility] Comment on above: Performed By: #### Vandana Cramer, BMP #### [place] [address] [place] Creatinine Clr Calc Pharmacy 21.49 Normal [facility] Comment on above: Performed By: #### Vandana Cramer, BMP #### [address] Estimated GFR 17.432 mL/Min Normal [facility] Comment on above: Performed By: #### Vandana Cramer, BMP #### [address] Glucose [Mass/Vol] 288 mg/dL High 70-100 [facility] Comment on above: Result Comment: [place] Glucose Reference Range is dependent on time and content of last meal. Glucose of more than 200 mg/dL in a nonstressed, ambulatory subject supports the diagnosis of Diabetes Mellitus. ADA recommended reference range Performed By: #### Vandana G, BMP #### [address] Potassium [Moles/Vol] 4.3 mmol/L Normal 3.5-5.1 [facility] Comment on above: Performed By: #### M G, BMP #### [facility] [address] Sodium [Moles/Vol] 134 mmol/L Low 136-145 [facility] Comment on above: Performed By: #### M G, BMP #### [facility] [address] Urea nitrogen [Mass/Vol] 77 mg/dL High 7-25 [facility] Comment on above: Performed By: #### M G, BMP #### [facility] [address] Glucose Poct Glucometerson 1 12-20-2023 Glucose [Mass/Vol] 222 mg/dL Normal [facility] Comment on above: Result Comment: [place] om Glucose Reference Range is dependent on time and content of last meal. Glucose of more than 200 mg/dL in a nonstressed, ambulatory subject supports the diagnosis of Diabetes Mellitus. PERFORMED BY: [place] [address] PATHOLOGIST COILED TUBING OPERATOR MAY HYDE M.D. Performed By: #### G LULS #### Point of Care testing , Glucose [Mass/Vol] 306 mg/dL Normal [facility] Comment on above: Result Comment: [place] Glucose Reference Range is dependent on time and content of last meal. Glucose of more than 200 mg/dL in a nonstressed, ambulatory subject supports the diagnosis of Diabetes Mellitus. PERFORMED BY: [place] [address] PATHOLOGIST COILED TUBING OPERATOR MAY HYDE M.D. Performed By: #### C OVID19 FLU RSV, CEPHEID POS #### [address] Glucose [Mass/Vol] 342 mg/dL Normal [facility] Comment on above: Result Comment: [place] om Glucose Reference Range is dependent on time and content of last meal. Glucose of more than 200 mg/dL in a nonstressed, ambulatory subject supports the diagnosis of Diabetes Mellitus. PERFORMED BY: [place] [address] PATHOLOGIST COILED TUBING OPERATOR MAY HYDE M.D. Performed By: #### Vandana Cramer, BMP #### [address] Glucose [Mass/Vol] 267 mg/dL Normal [facility] Comment on above: Result Comment: [facility] Glucose Reference Range is dependent on time and content of last meal. Glucose of more than 200 mg/dL in a nonstressed, ambulatory subject supports the diagnosis of Diabetes Mellitus. PERFORMED BY: [place] [address] PATHOLOGIST COILED TUBING OPERATOR MAY HYDE M.D. Performed By: #### Vandana Cramer, BMP #### [address] Magnesiumon 10-19-2024 Magnesium [Mass/Vol] 2.0 mg/dL Normal 1.9-2.7 [facility] Comment on above: Result Comment: PERF ORMED BY: [place] [address] PATHOLOGIST COILED TUBING OPERATOR MAY HYDE M.D. Performed By: #### Vandana Cramer, BMP #### [address] Basic Metabolic Panelon 12-0 Anion gap [Moles/Vol] 15.4 mmol/L High 6.0-15.0 Th [facility] Comment on above: Order Comment: REY PARKER NOTIFIED. SMB 0442. Performed By: #### Vandana Cramer, KAREN, TSH3, T4F #### [address] Calcium [Mass/Vol] 9.5 mg/dL Normal 8.6-10.3 [facility] Comment on above: Order Comment: REY PARKER NOTIFIED. SMB 0442. Performed By: #### Vandana Cramer, KAREN, TSH3, T4F #### [address] Chloride [Moles/Vol] 97 mmol/L Low 98-107 [facility] Comment on above: Order Comment: REY PARKER NOTIFIED. SMB 0442. Performed By: #### KAREN Hansen, TSH3, T4F #### [address] CO2 [Moles/Vol] 29.7 mmol/L Normal 21.0-31.0 [facility] Comment on above: Order Comment: REY PARKER NOTIFIED. SMB 0442. Performed By: #### KAREN Hansen, TSH3, T4F #### [address] Creatinine [Mass/Vol] 1.81 mg/dL High 0.60-1.20 [facility] Comment on above: Order Comment: REY PARKER NOTIFIED. SMB 0442. Performed By: #### KAREN Hansen, TSH3, T4F #### [address] Creatinine Clr Calc Pharmacy 32.95 Normal [facility] Comment on above: Order Comment: REY PARKER NOTIFIED. SMB 0442. Performed By: #### KAREN Hansen, TSH3, T4F #### [address] Estimated GFR 28.294 mL/Min Normal [facility] Comment on above: Order Comment: REY PARKER NOTIFIED. SMB 0442. Performed By: #### KAREN Hansen, TSH3, T4F #### [address] Glucose [Mass/Vol] 220 mg/dL High 70-100 [facility] Comment on above: Order Comment: REY PARKER NOTIFIED. SMB 0442. Result Comment: [place] Glucose Reference Range is dependent on time and content of last meal. Glucose of more than 200 mg/dL in a nonstressed, ambulatory subject supports the diagnosis of Diabetes Mellitus. ADA recommended reference range Performed By: #### Vandana Cramer, KAREN, TSH3, T4F #### [address] Potassium [Moles/Vol] 4.1 mmol/L Normal 3.5-5.1 [facility] Comment on above: Order Comment: REY PARKER NOTIFIED. SMB 0442. Performed By: #### M G, BMP, TSH3, T4F #### [address] Sodium [Moles/Vol] 138 mmol/L Normal 136-145 [facility] Comment on above: Order Comment: REY PRAKER NOTIFIED. SMB 0442. Performed By: #### M G, BMP, TSH3, T4F #### [address] Urea nitrogen [Mass/Vol] 66 mg/dL High 7-25 [facility] Comment on above: Order Comment: REY PARKER NOTIFIED. SMB 0442. Performed By: #### M G, BMP, TSH3, T4F #### [address] Free T4 (Free Thyroxine)on 1 12-19-2023 Free T4 [Mass/Vol] 1.26 ng/dL High 0.61-1.12 [facility] Comment on above: Order Comment: REY PARKER NOTIFIED. SMB 0442. Performed By: #### C OVID19 FLU RSV, CEPHEID POS #### [address] Glucose Poct Glucometerson 1 12-19-2023 Glucose [Mass/Vol] 329 mg/dL Normal [facility] Comment on above: Result Comment: [place] Glucose Reference Range is dependent on time and content of last meal. Glucose of more than 200 mg/dL in a nonstressed, ambulatory subject supports the diagnosis of Diabetes Mellitus. PERFORMED BY: [place] [address] PATHOLOGIST COILED TUBING OPERATOR MAY HYDE M.D. Performed By: #### M G, BMP #### [place] [address] [place] Glucose [Mass/Vol] 210 mg/dL Normal [facility] Comment on above: Result Comment: [place] om Glucose Reference Range is dependent on time and content of last meal. Glucose of more than 200 mg/dL in a nonstressed, ambulatory subject supports the diagnosis of Diabetes Mellitus. PERFORMED BY: [place] [address] PATHOLOGIST COILED TUBING OPERATOR MAY HYDE M.D. Performed By: #### C OVID19 FLU RSV, CEPHEID POS #### [address] Glucose [Mass/Vol] 251 mg/dL Normal [facility] Comment on above: Result Comment: [place] Glucose Reference Range is dependent on time and content of last meal. Glucose of more than 200 mg/dL in a nonstressed, ambulatory subject supports the diagnosis of Diabetes Mellitus. PERFORMED BY: [place] [address] PATHOLOGIST COILED TUBING OPERATOR MAY HYDE M.D. Performed By: #### C OVID19 FLU RSV, CEPHEID POS #### [place] [address] [place] Glucose [Mass/Vol] 207 mg/dL Normal [facility] Comment on above: Result Comment: [place] om Glucose Reference Range is dependent on time and content of last meal. Glucose of more than 200 mg/dL in a nonstressed, ambulatory subject supports the diagnosis of Diabetes Mellitus. PERFORMED BY: [place] [address] PATHOLOGIST COILED TUBING OPERATOR MAY HYDE M.D. Performed By: #### M G, BMP #### [place] [address] [place] Glucose [Mass/Vol] 188 mg/dL Normal [facility] Comment on above: Result Comment: [place] om Glucose Reference Range is dependent on time and content of last meal. Glucose of more than 200 mg/dL in a nonstressed, ambulatory subject supports the diagnosis of Diabetes Mellitus. PERFORMED BY: [address] [place] [address] PATHOLOGIST COILED TUBING OPERATOR MAY HYDE M.D. Performed By: #### Vandana Cramer, BMP #### [address] Magnesiumon 10-18-2024 Magnesium [Mass/Vol] 2.1 mg/dL Normal 1.9-2.7 [facility] Comment on above: Order Comment: REY PARKER NOTIFIED. SMB 0442. Performed By: #### C OVID19 FLU RSV, CEPHEID POS #### [address] Serum or plasma thyroperoxid ase antibody assay (units/volume)Ordered By: Mauri Chavira on 10-18-2024 TPO Ab Qn Serum or plasma thyroperoxidase antibody assay (units/volume) 0-34 [facility] Comment on above: Performed at: [facility] [place] [address]Lab Director: Dimitri Landis PhD, Phone: [phone] Thyroid Peroxidase Antibodie son 10-18-2024 Thyroid Peroxidase Antibodies <9 Normal 0-34 [facility] Comment on above: Order Comment: REY PARKER NOTIFIED. SMB 0442. Result Comment: Perf ormed at: [facility] [place] [address] [employer] Machine Operator: Dimitri Landis PhD, Phone: [phone] PERFORMED BY: [place] [address] PATHOLOGIST COILED TUBING OPERATOR MAY HYDE M.D. Performed By: #### Vandana Cramer, BMP #### [address] Thyroid Stimulating Hormoneo n 10-18-2024 TSH Qn 1.86 m[IU]/L Normal 0.45-5.33 The [facility] Comment on above: Order Comment: REY PARKER NOTIFIED. SMB 0442. Result Comment: PERF ORMED BY: [address] [address] PATHOLOGIST COILED TUBING OPERATOR MAY HYDE M.D. Performed By: #### C OVID19 FLU RSV, CEPHEID POS #### [facility] [address] Thyrotropin [Units/volume] i n Serum or PlasmaOrdered By: Mauri Chavira on 10-18-2024 TSH Qn Thyrotropin [Units/volume] in Serum or Plasma 0.45-5.33 [facility] Thyroxine (T4) free [Mass/vo lume] in Serum or PlasmaOrdered By: Mauri Chavira on 10-18-2024 Free T4 [Mass/Vol] Thyroxine (T4) free [Mass/volume] in Serum or Plasma High 0.61-1.12 [facility] Alanine aminotransferase [En zymatic activity/volume] in Serum or PlasmaOrdered By: Mauri Chavira on 10-17-2024 ALT [Catalytic activity/Vol] Alanine aminotransferase [Enzymatic activity/volume] in Serum or Plasma 7-52 [facility] Albumin [Mass/volume] in Ser um or Plasma by Bromocresol green (BCG) dye binding methoOrdered By: Mauri Chavira on 10-17-2024 Albumin BCG dye [Mass/Vol] Albumin [Mass/volume] in Serum or Plasma by Bromocresol green (BCG) dye binding metho 3.5-5.7 [facility] Alkaline phosphatase [Enzyma tic activity/volume] in Serum or PlasmaOrdered By: Mauri Chavira on 10-17-2024 ALP [Catalytic activity/Vol] Alkaline phosphatase [Enzymatic activity/volume] in Serum or Plasma 34-104 [facility] Aspartate aminotransferase [ Enzymatic activity/volume] in Serum or PlasmaOrdered By: Mauri Chavira on 10-17-2024 AST [Catalytic activity/Vol] Aspartate aminotransferase [Enzymatic activity/volume] in Serum or Plasma 13-39 [facility] Basophils Auto (Bld) [#/Vol] Ordered By: Mauri Chavira on 10-17-2024 Basophils (Bld) [#/Vol] Automated basophil count 0.0-0.2 [facility] Basophils/100 WBC Auto (Bld) Ordered By: Mauri Chavira on 10-17-2024 Basophils/100 WBC (Bld) Automated basophil % . [facility] Bilirubin.total [Mass/volume ] in Serum or PlasmaOrdered By: Mauri Chavira on 10-17-2024 Bilirubin [Mass/Vol] Bilirubin.total [Mass/volume] in Serum or Plasma 0.3-1.0 [facility] Complete Blood Count Auto Di ffon 10-17-2024 Basophils (Bld) [#/Vol] 0.1 10*3/uL Normal 0.0-0.2 [facility] Comment on above: Result Comment: PERF ORMED BY: [address] [place] [address] PATHOLOGIST COILED TUBING OPERATOR MAY HYDE M.D. Performed By: #### C OVID19 FLU RSV, CEPHEID POS #### [address] Basophils/100 WBC (Bld) 0.8 % Normal . [facility] Comment on above: Performed By: #### C OVID19 FLU RSV, CEPHEID POS #### [address] Eosinophils (Bld) [#/Vol] 0.1 10*3/uL Normal 0.0-0.45 [facility] Comment on above: Performed By: #### C OVID19 FLU RSV, CEPHEID POS #### [address] Eosinophils/100 WBC (Bld) 0.7 % Normal . [facility] Comment on above: Performed By: #### C OVID19 FLU RSV, CEPHEID POS #### [address] Erythrocyte distribution width (RBC) [Ratio] 15.4 % High 11.9-15.3 [facility] Comment on above: Performed By: #### C OVID19 FLU RSV, CEPHEID POS #### [address] Hematocrit (Bld) [Volume fraction] 40.4 % Normal 34.0-46.4 [facility] Comment on above: Performed By: #### C OVID19 FLU RSV, CEPHEID POS #### [address] Hemoglobin (Bld) [Mass/Vol] 13.3 g/dL Normal 11.8-15.4 [facility] Comment on above: Performed By: #### C OVID19 FLU RSV, CEPHEID POS #### [address] Lymphocytes (Bld) [#/Vol] 1.4 10*3/uL Normal 1.00-4.8 [facility] Comment on above: Performed By: #### C OVID19 FLU RSV, CEPHEID POS #### [address] Lymphocytes/100 WBC (Bld) 15.2 % Normal . [facility] Comment on above: Performed By: #### C OVID19 FLU RSV, CEPHEID POS #### [address] MCH (RBC) [Entitic mass] 29.3 pg Normal 24.7-34.3 [facility] Comment on above: Performed By: #### C OVID19 FLU RSV, CEPHEID POS #### [address] MCV (RBC) [Entitic vol] 88.8 fL Normal 80-100 [facility] Comment on above: Performed By: #### C OVID19 FLU RSV, CEPHEID POS #### [address] Mean Corpuscular HGB Conc 33.0 g/dL Normal 32.0-35.0 [facility] Comment on above: Performed By: #### C OVID19 FLU RSV, CEPHEID POS #### [address] Monocytes (Bld) [#/Vol] 0.7 10*3/uL Normal 0.0-0.8 [facility] Comment on above: Performed By: #### C OVID19 FLU RSV, CEPHEID POS #### [address] Monocytes/100 WBC (Bld) 7.2 % Normal . [facility] Comment on above: Performed By: #### C OVID19 FLU RSV, CEPHEID POS #### [address] Neutrophils (Bld) [#/Vol] 7.0 10*3/uL Normal 1.8-7.7 [facility] Comment on above: Performed By: #### C OVID19 FLU RSV, CEPHEID POS #### [address] Neutrophils/100 WBC (Bld) 76.1 % Normal . [facility] Comment on above: Performed By: #### C OVID19 FLU RSV, CEPHEID POS #### [address] NRBC% 0.0 /100{WBC} Normal 0-0.5 [facility] Comment on above: Performed By: #### C OVID19 FLU RSV, CEPHEID POS #### [address] Platelet mean volume (Bld) [Entitic vol] 9.5 fL Normal 6.3-10.7 [facility] Comment on above: Performed By: #### C OVID19 FLU RSV, CEPHEID POS #### [place] [address] [place] Platelets (Bld) [#/Vol] 183 10*3/uL Normal 150-450 [facility] Comment on above: Performed By: #### C OVID19 FLU RSV, CEPHEID POS #### [place] [address] [place] RBC (Bld) [#/Vol] 4.55 10*6/uL Normal 3.60-5.00 The [facility] Comment on above: Performed By: #### C OVID19 FLU RSV, CEPHEID POS #### [place] [id number] [place] WBC (Bld) [#/Vol] 9.2 10*3/uL Normal 3.8-11.6 [facility] Comment on above: Performed By: #### C OVID19 FLU RSV, CEPHEID POS #### [address] Comprehensive Metabolic Pane daniele 10-17-2024 Albumin [Mass/Vol] 3.5 g/dL Normal 3.5-5.7 [facility] Comment on above: Performed By: #### C OVID19 FLU RSV, CEPHEID POS #### [address] Albumin/Globulin [Mass ratio] 0.9 {ratio} Normal The [facility] Comment on above: Performed By: #### C OVID19 FLU RSV, CEPHEID POS #### [address] ALP [Catalytic activity/Vol] 99 U/L Normal 34-104 The [facility] Comment on above: Performed By: #### C OVID19 FLU RSV, CEPHEID POS #### [address] ALT [Catalytic activity/Vol] 42 U/L Normal 7-52 [facility] Comment on above: Performed By: #### C OVID19 FLU RSV, CEPHEID POS #### [address] Anion gap [Moles/Vol] 14.7 mmol/L Normal 6.0-15.0 Th [facility] Comment on above: Performed By: #### C OVID19 FLU RSV, CEPHEID POS #### [address] AST [Catalytic activity/Vol] 35 U/L Normal 13-39 The [facility] Comment on above: Performed By: #### C OVID19 FLU RSV, CEPHEID POS #### [address] Bilirubin [Mass/Vol] 0.6 mg/dL Normal 0.3-1.0 The [facility] Comment on above: Performed By: #### C OVID19 FLU RSV, CEPHEID POS #### [address] Calcium [Mass/Vol] 9.6 mg/dL Normal 8.6-10.3 The [facility] Comment on above: Performed By: #### C OVID19 FLU RSV, CEPHEID POS #### [address] Chloride [Moles/Vol] 99 mmol/L Normal 98-107 The [facility] Comment on above: Performed By: #### C OVID19 FLU RSV, CEPHEID POS #### [address] CO2 [Moles/Vol] 25.3 mmol/L Normal 21.0-31.0 The [facility] Comment on above: Performed By: #### C OVID19 FLU RSV, CEPHEID POS #### [address] Creatinine [Mass/Vol] 1.99 mg/dL High 0.60-1.20 The [facility] Comment on above: Performed By: #### C OVID19 FLU RSV, CEPHEID POS #### [address] Creatinine Clr Calc Pharmacy 29.98 Normal The [facility] Comment on above: Performed By: #### C OVID19 FLU RSV, CEPHEID POS #### [address] Estimated GFR 25.252 mL/Min Normal The [facility] Comment on above: Performed By: #### C OVID19 FLU RSV, CEPHEID POS #### [place] [address] [place] Globulin (S) [Mass/Vol] 3.9 g/dL Normal The [facility] Comment on above: Performed By: #### C OVID19 FLU RSV, CEPHEID POS #### [address] Glucose [Mass/Vol] 228 mg/dL High 70-100 The [facility] Comment on above: Result Comment: [place] Glucose Reference Range is dependent on time and content of last meal. Glucose of more than 200 mg/dL in a nonstressed, ambulatory subject supports the diagnosis of Diabetes Mellitus. ADA recommended reference range Performed By: #### C OVID19 FLU RSV, CEPHEID POS #### [address] Potassium [Moles/Vol] 5.0 mmol/L Normal 3.5-5.1 The [facility] Comment on above: Performed By: #### C OVID19 FLU RSV, CEPHEID POS #### [address] Protein [Mass/Vol] 7.4 g/dL Normal 6.4-8.9 The [facility] Comment on above: Performed By: #### C OVID19 FLU RSV, CEPHEID POS #### [address] Sodium [Moles/Vol] 134 mmol/L Low 136-145 The [facility] Comment on above: Performed By: #### C OVID19 FLU RSV, CEPHEID POS #### [place] [address] [place] Urea nitrogen [Mass/Vol] 67 mg/dL High 7-25 The [facility] Comment on above: Performed By: #### C OVID19 FLU RSV, CEPHEID POS #### [place] [address] [place] Eosinophils Auto (Bld) [#/Vo l]Ordered By: Mauri Chavira on 10-17-2024 Eosinophils (Bld) [#/Vol] Automated eosinophil count 0.0-0.45 [facility] Eosinophils/100 WBC Auto (Bl d)Ordered By: Mauri Chavira on 10-17-2024 Eosinophils/100 WBC (Bld) Automated eosinophil % . [facility] Erythrocyte distribution wid th Auto (RBC) [Ratio]Ordered By: Mauri Chavira on 10-17-2024 Erythrocyte distribution width (RBC) [Ratio] Erythrocyte distribution width [Ratio] by Automated count High 11.9-15.3 [facility] Globulin Calc (S) [Mass/Vol] Ordered By: Mauri Chavira on 10-17-2024 Globulin (S) [Mass/Vol] Serum globulin measurement by calculation (mass/volume) [facility] Glucose Poct Glucometerson 1 12-18-2023 Glucose [Mass/Vol] 245 mg/dL Normal The [facility] Comment on above: Result Comment: [place] Glucose Reference Range is dependent on time and content of last meal. Glucose of more than 200 mg/dL in a nonstressed, ambulatory subject supports the diagnosis of Diabetes Mellitus. PERFORMED BY: [place] [address] PATHOLOGIST COILED TUBING OPERATOR MAY HYDE M.D. Performed By: #### C OVID19 FLU RSV, CEPHEID POS #### [facility] [address] [place] [address] Glucose [Mass/Vol] 335 mg/dL Normal The [facility] Comment on above: Result Comment: [facility] Glucose Reference Range is dependent on time and content of last meal. Glucose of more than 200 mg/dL in a nonstressed, ambulatory subject supports the diagnosis of Diabetes Mellitus. PERFORMED BY: [place] [address] PATHOLOGIST COILED TUBING OPERATOR MAY HYDE M.D. Performed By: #### M G, BMP #### [facility] [address] [place] [address] Glucose [Mass/Vol] 324 mg/dL Normal The [facility] Comment on above: Result Comment: [place] Glucose Reference Range is dependent on time and content of last meal. Glucose of more than 200 mg/dL in a nonstressed, ambulatory subject supports the diagnosis of Diabetes Mellitus. PERFORMED BY: [place] [address] PATHOLOGIST COILED TUBING OPERATOR MAY HYDE M.D. Performed By: #### G LULS #### Point of Care testing , Glucose [Mass/Vol] 253 mg/dL Normal [facility] Comment on above: Result Comment: [facility] Glucose Reference Range is dependent on time and content of last meal. Glucose of more than 200 mg/dL in a nonstressed, ambulatory subject supports the diagnosis of Diabetes Mellitus. PERFORMED BY: [place] [address] PATHOLOGIST COILED TUBING OPERATOR MAY HYDE M.D. Performed By: #### M Bela, BMP #### [address] Hematocrit Auto (Bld) [Volum e fraction]Ordered By: Mauri Chavira on 10-17-2024 Hematocrit (Bld) [Volume fraction] Hematocrit [Volume Fraction] of Blood by Automated count 34.0-46.4 [facility] Hemoglobin [Mass/volume] in BloodOrdered By: Mauri Chavira on 10-17-2024 Hemoglobin (Bld) [Mass/Vol] Hemoglobin [Mass/volume] in Blood 11.8-15.4 [facility] Leukocytes [#/volume] correc gali for nucleated erythrocytes in Blood by Automated counOrdered By: Mauri Chavira on 10-17-2024 WBC corrected for nucl RBC Auto (Bld) [#/Vol] Leukocytes [#/volume] corrected for nucleated erythrocytes in Blood by Automated coun 3.8-11.6 [facility] Lymphocytes Auto (Bld) [#/Vo l]Ordered By: Mauri Chavira on 10-17-2024 Lymphocytes (Bld) [#/Vol] Lymphocytes [#/volume] in Blood by Automated count 1.00-4.8 [facility] Lymphocytes/100 WBC Auto (Bl d)Ordered By: Mauri Chavira on 10-17-2024 Lymphocytes/100 WBC (Bld) Lymphocytes/100 leukocytes in Blood by Automated count . [facility] MCH Auto (RBC) [Entitic mass ]Ordered By: Mauri Chavira on 10-17-2024 MCH (RBC) [Entitic mass] MCH [Entitic mass] by Automated count 24.7-34.3 [facility] MCHC Auto (RBC) [Mass/Vol]Or dered By: Mauri Chavira on 10-17-2024 MCHC (RBC) [Mass/Vol] MCHC [Mass/volume] by Automated count 32.0-35.0 [facility] MCV Auto (RBC) [Entitic vol] Ordered By: Mauri Chavira on 10-17-2024 MCV (RBC) [Entitic vol] MCV [Entitic volume] by Automated count 80-100 [facility] Magnesiumon 10-17-2024 Magnesium [Mass/Vol] 1.6 mg/dL Low 1.9-2.7 The [facility] Comment on above: Result Comment: PERF ORMED BY: [facility] [address] [place] [address] PATHOLOGIST COILED TUBING OPERATOR MAY HYDE M.D. Performed By: #### C OVID19 FLU RSV, CEPHEID POS #### [facility] [address] Monocytes Auto (Bld) [#/Vol] Ordered By: Mauri Chavira on 10-17-2024 Monocytes (Bld) [#/Vol] Automated blood monocyte count 0.0-0.8 [facility] Monocytes/100 WBC Auto (Bld) Ordered By: Mauri Chavira on 10-17-2024 Monocytes/100 WBC (Bld) Automated monocyte % . [facility] Neutrophils Auto (Bld) [#/Vo l]Ordered By: Mauri Chavira on 10-17-2024 Neutrophils (Bld) [#/Vol] Neutrophils [#/volume] in Blood by Automated count 1.8-7.7 [facility] Neutrophils/100 WBC Auto (Bl d)Ordered By: Mauri Chavira on 10-17-2024 Neutrophils/100 WBC (Bld) Automated neutrophil % . [facility] Nucleated erythrocytes [Pres ence] in Blood by Automated countOrdered By: Mauri Chavira on 10-17-2024 Nucleated RBC Auto Ql (Bld) Nucleated erythrocytes [Presence] in Blood by Automated count 0-0.5 [facility] Platelet mean volume Auto (B ld) [Entitic vol]Ordered By: Mauri Chavira on 10-17-2024 Platelet mean volume (Bld) [Entitic vol] Platelet mean volume [Entitic volume] in Blood by Automated count 6.3-10.7 [facility] Platelets Auto (Bld) [#/Vol] Ordered By: Mauri Chavira on 10-17-2024 Platelets (Bld) [#/Vol] Platelets [#/volume] in Blood by Automated count 150-450 [facility] Protein [Mass/volume] in Ser um or PlasmaOrdered By: Mauri Chavira on 10-17-2024 Protein [Mass/Vol] Protein [Mass/volume ] in Serum or Plasma 6.4-8.9 [facility] RBC Auto (Bld) [#/Vol]Ordere d By: Mauri Chavira on 10-17-2024 RBC (Bld) [#/Vol] Erythrocytes [#/volu me] in Blood by Automated count 3.60-5.00 [facility] Serum or plasma albumin/glob ulin mass ratioOrdered By: Mauri Chavira on 10-17-2024 Albumin/Globulin [Mass ratio] Serum or plasma albumin/globulin mass ratio [facility] WBC Auto (Bld) [#/Vol]Ordere d By: Mauri Chavira on 10-17-2024 WBC (Bld) [#/Vol] Leukocytes [#/volume ] in Blood by Automated count 3.8-11.6 [facility] B-Type Natriuretic Peptideon 10-16-2024 Natriuretic peptide B (Bld) [Mass/Vol] 547.0 pg/mL High 5-100 The [facility] Comment on above: Result Comment: PERF ORMED BY: [address] [place] [address] PATHOLOGIST COILED TUBING OPERATOR MAY HYDE M.D. Performed By: #### A 1C [facility] eA #### [facility] [address] [place] [address] Basic Metabolic Panelon Anion gap [Moles/Vol] 18.1 mmol/L High 6.0-15.0 Th e [facility] Comment on above: Performed By: #### M G, BMP #### [facility] [address] [place] [address] [place] Calcium [Mass/Vol] 9.7 mg/dL Significant change down 8.6-10.3 The [facility] Comment on above: Performed By: #### M G, BMP #### [address] Chloride [Moles/Vol] 100 mmol/L Normal 98-107 The [facility] Comment on above: Performed By: #### M G, BMP #### [address] CO2 [Moles/Vol] 23.3 mmol/L Normal 21.0-31.0 The [facility] Comment on above: Performed By: #### M G, BMP #### [address] Creatinine [Mass/Vol] 2.14 mg/dL High 0.60-1.20 The [facility] Comment on above: Performed By: #### M G, BMP #### [address] Creatinine Clr Calc Pharmacy 27.88 Normal [facility] Comment on above: Result Comment: PERF ORMED BY: [place] [address] PATHOLOGIST COILED TUBING OPERATOR MAY HYDE M.D. Performed By: #### M G, BMP #### [address] Estimated GFR 23.142 mL/Min Normal The [facility] Comment on above: Performed By: #### M G, BMP #### [address] Glucose [Mass/Vol] 301 mg/dL High 70-100 The [facility] Comment on above: Result Comment: [place] Glucose Reference Range is dependent on time and content of last meal. Glucose of more than 200 mg/dL in a nonstressed, ambulatory subject supports the diagnosis of Diabetes Mellitus. ADA recommended reference range Performed By: #### M G, BMP #### [address] Potassium [Moles/Vol] 6.4 mmol/L Off scale high 3.5-5.1 The [facility] Comment on above: Result Comment: Resu lts called at 1909 on 10/16/24 Critical Result Called to and read back by: ISMA AVILA/RENETTA at: 10/16/2024 19:04:24 by:[id number] Performed By: #### M Bela, BMP #### [facility] [address] [place] [address] [place] Sodium [Moles/Vol] 135 mmol/L Low 136-145 The [facility] Comment on above: Performed By: #### M G, BMP #### [facility] [address] [place] [address] [place] Urea nitrogen [Mass/Vol] 74 mg/dL High 7-25 The [facility] Comment on above: Performed By: #### M Bela, BMP #### [facility] [address] [place] [id number] [facility] Anion gap [Moles/Vol] 13.8 mmol/L Normal 6.0-15.0 [facility] Comment on above: Performed By: #### A 1C WTH eA #### [facility] [address] [place] [id number] [place] Calcium [Mass/Vol] 8.1 mg/dL Low 8.6-10.3 The [facility] Comment on above: Performed By: #### A 1C WTH eA #### [facility] [address] [place] [id number] [place] Chloride [Moles/Vol] 104 mmol/L Normal 98-107 The [facility] Comment on above: Performed By: #### A 1C WTH eA #### [facility] [address] [place] [id number] [place] CO2 [Moles/Vol] 21.5 mmol/L Normal 21.0-31.0 The [facility] Comment on above: Performed By: #### A 1C WTH eA #### [facility] [address] [place] [id number] [place] Creatinine [Mass/Vol] 2.25 mg/dL High 0.60-1.20 The [facility] Comment on above: Performed By: #### A 1C WT eA #### [address] Creatinine Clr Calc Pharmacy 5.50 Normal The [facility] Comment on above: Performed By: #### A 1C WT eA #### [facility] [address] Estimated GFR 21.792 mL/Min Normal The [facility] Comment on above: Performed By: #### A 1C WT eA #### [address] Glucose [Mass/Vol] 388 mg/dL High 70-100 The [facility] Comment on above: Result Comment: [place] Glucose Reference Range is dependent on time and content of last meal. Glucose of more than 200 mg/dL in a nonstressed, ambulatory subject supports the diagnosis of Diabetes Mellitus. ADA recommended reference range Performed By: #### A 1C WT eA #### [address] Potassium [Moles/Vol] 6.3 mmol/L Off scale high 3.5-5.1 The [facility] Comment on above: Result Comment: Crit ical Result Called to and read back by: LYNN KLINE at: 10/16/2024 14:01:43 by:[id number] Performed By: #### A 1C WT eA #### [address] Sodium [Moles/Vol] 133 mmol/L Low 136-145 The [facility] Comment on above: Performed By: #### A 1C WT eA #### [address] Urea nitrogen [Mass/Vol] 73 mg/dL High 7-25 The [facility] Comment on above: Performed By: #### A 1C WT eA #### [address] Blood carbon dioxide, total measurement by calculation (moles/volume)Ordered By: Kavin Escobar on 10-16-2024 CO2 Calc (Bld) [Moles/Vol] Blood carbon dioxide, total measurement by calculation (moles/volume) Low 23-29 [facility] Chloride (Bld) [Moles/Vol]Or dered By: Kavin Escobar on 10-16-2024 Chloride [Moles/Vol] Whole blood chlorid e measurement 98-109 [facility] Complete Blood Count Auto Di ffon 10-16-2024 Basophils (Bld) [#/Vol] 0.1 10*3/uL Normal 0.0-0.2 The [facility] Comment on above: Result Comment: PERF ORMED BY: [place] [address] PATHOLOGIST COILED TUBING OPERATOR MAY HYDE M.D. Performed By: #### A 1C [facility] eA #### [address] Basophils/100 WBC (Bld) 0.7 % Normal . [facility] Comment on above: Performed By: #### A 1C [facility] eA #### [address] Eosinophils (Bld) [#/Vol] 0.1 10*3/uL Normal 0.0-0.45 The [facility] Comment on above: Performed By: #### A [facility] eA #### [address] Eosinophils/100 WBC (Bld) 0.6 % Normal . [facility] Comment on above: Performed By: #### A 1C [facility] eA #### [address] Erythrocyte distribution width (RBC) [Ratio] 15.2 % Normal 11.9-15.3 The [facility] Comment on above: Performed By: #### A 1C [facility] eA #### [address] Hematocrit (Bld) [Volume fraction] 35.5 % Normal 34.0-46.4 The [facility] Comment on above: Performed By: #### A 1C [facility] eA #### [address] Hemoglobin (Bld) [Mass/Vol] 11.6 g/dL Low 11.8-15.4 The [facility] Comment on above: Performed By: #### A 1C [facility] eA #### [address] Lymphocytes (Bld) [#/Vol] 1.2 10*3/uL Normal 1.00-4.8 [facility] Comment on above: Performed By: #### A 1C [facility] eA #### [address] Lymphocytes/100 WBC (Bld) 12.5 % Normal . [facility] Comment on above: Performed By: #### A 1C [facility] eA #### [address] MCH (RBC) [Entitic mass] 29.0 pg Normal 24.7-34.3 [facility] Comment on above: Performed By: #### A 1C [facility] eA #### [address] MCV (RBC) [Entitic vol] 89.1 fL Normal 80-100 [facility] Comment on above: Performed By: #### A 1C [facility] eA #### [address] Mean Corpuscular HGB Conc 32.6 g/dL Normal 32.0-35.0 [facility] Comment on above: Performed By: #### A 1C [facility] eA #### [address] Monocytes (Bld) [#/Vol] 0.7 10*3/uL Normal 0.0-0.8 The [facility] Comment on above: Performed By: #### A 1C WT eA #### [address] Monocytes/100 WBC (Bld) 18.11 % Normal 0.00-20.00 [facility] Comment on above: Performed By: #### A 1C [facility] eA #### [address] Monocytes/100 WBC (Bld) 6.8 % Normal . [facility] Comment on above: Performed By: #### A 1C [facility] eA #### [address] Neutrophils (Bld) [#/Vol] 8.0 10*3/uL High 1.8-7.7 [facility] Comment on above: Performed By: #### A 1C [facility] eA #### [address] Neutrophils/100 WBC (Bld) 79.4 % Normal . [facility] Comment on above: Performed By: #### A 1C WT eA #### [address] NRBC% 0.1 /100{WBC} Normal 0-0.5 The [facility] Comment on above: Performed By: #### A 1C WT eA #### [address] Platelet mean volume (Bld) [Entitic vol] 9.7 fL Normal 6.3-10.7 The [facility] Comment on above: Performed By: #### A 1C [facility] eA #### [place] [address] [place] Platelets (Bld) [#/Vol] 181 10*3/uL Normal 150-450 The [facility] Comment on above: Performed By: #### A 1C WT eA #### [address] RBC (Bld) [#/Vol] 3.98 10*6/uL Normal 3.60-5.00 The [facility] Comment on above: Performed By: #### A 1C WT eA #### [address] WBC (Bld) [#/Vol] 10.0 10*3/uL Normal 3.8-11.6 The [facility] Comment on above: Performed By: #### A 1C WT eA #### [facility] [address] [place] [address] [place] Creatine Kinaseon 10-16-2024 CK [Catalytic activity/Vol] 37 U/L Normal 30 The [facility] Comment on above: Performed By: #### A 1C [facility] eA #### [address] [address] [facility] Creatine kinase [Enzymatic a ctivity/volume] in Serum or PlasmaOrdered By: Jorge Luis Zavala on 10-16-2024 CK [Catalytic activity/Vol] Creatine kinase [Enzymatic activity/volume] in Serum or Plasma [facility] Creatinine (Bld) [Mass/Vol]O rdered By: Kavin Escobar on 10-16-2024 Creatinine [Mass/Vol] Whole blood creati nine measurement High 0.6-1.3 [facility] Comment on above: ER/ESD physician is notified/shown all ISTAT results.Critical values may be confirmed by laboratory testing ifdeemed necessary by ER attending doctor. ECG 12 lead ECGon 10-16-2024 ECG 12 lead ECG [facility] Main [place] [address] [place], [place] [id number] Electrocardiograph Report Signed Patient: Joe Call MR#: [id number] 0 : 1945 Acct:[id number] Age/Sex: 79 / F ADM Date: 10/16/24 Loc: Room: [address] [place] [address] Type: DIS IN Attending Dr: Kavin Escobar [...] Moreno MD 1 12/24/23 1516 Normal [facility] ECG 12 lead ECG [facility] Main [place] [id number] Electrocardiograph Report Signed Patient: Joe Call MR#: [id number] 0 : 1945 Acct:[id number] Age/Sex: 79 / F ADM Date: 10/16/24 Loc: 4C Room: [address] [place] [address] Type: ADM IN Attending Dr: Mauri Chavira [...] Jorge Luis Zavala DO 1926 Normal [facility] ECG 12 lead ECG [facility] Main [place] [id number] Electrocardiograph Report Signed Patient: Joe Call MR#: [id number] 0 : 1945 Acct:[id number] Age/Sex: 79 / F ADM Date: 10/16/24 Loc: Room: [address] [place] [address] Type: ADM IN Attending Dr: Mauri Chavira [...] Jorge Luis Zavala DO 1926 Normal [facility] Glucose Glucometer (BldC) [M ass/Vol]Ordered By: Kavin Escobar on 10-16-2024 Glucose [Mass/Vol] Capillary blood gluc ose measurement by glucometer (mass/volume) High 70-105 [facility] Glucose Poct Glucometerson 1 12-17-2023 Glucose [Mass/Vol] 266 mg/dL Normal [facility] Comment on above: Result Comment: [facility] Glucose Reference Range is dependent on time and content of last meal. Glucose of more than 200 mg/dL in a nonstressed, ambulatory subject supports the diagnosis of Diabetes Mellitus. PERFORMED BY: [place] [address] PATHOLOGIST COILED TUBING OPERATOR MAY HYDE M.D. Performed By: #### Vandana Cramer BMP #### [address] Hemoglobin Calc (Bld) [Mass/ Vol]Ordered By: Kavin Escobar on 10-16-2024 Hemoglobin (Bld) [Mass/Vol] Blood hemoglobin measurement by calculation (mass/volume) 12.0-17.0 [facility] INR in Platelet poor plasma by Coagulation assayOrdered By: Jorge Luis Zavala on 10-16-2024 INR Coag (PPP) [Relative time] INR in Platelet poor plasma by Coagulation assay [facility] Comment on above: INR Therapeutic Rang e [...] 104.0 mmol/L Normal 98-109 Th [facility] Comment on above: Performed By: #### E RBMP #### [address] Point of Care testing , CO2 [Moles/Vol] 22 mmol/L Low 23-29 [facility] Comment on above: Performed By: #### E RBMP #### [address] Point of Care testing , Creatinine [Mass/Vol] 2.3 mg/dL High 0.6-1.3 [facility] Comment on above: Result Comment: ER/E [place] physician is notified/shown all ISTAT results. Critical values may be confirmed by laboratory testing if deemed necessary by ER attending doctor. Performed By: #### E RBMP #### [address] Point of Care testing , Glucose [Mass/Vol] 390 mg/dL High 70-105 [facility] Comment on above: Result Comment: PERF ORMED BY: [place] [address] PATHOLOGIST COILED TUBING OPERATOR MAY HYDE M.D. Performed By: #### E RBMP #### [address] Point of Care testing , Hemoglobin (Bld) [Mass/Vol] 12.2 g/dL Normal 12.0-17.0 [facility] Comment on above: Performed By: #### E RBMP #### [facility] [address] [place] [address] Point of Care testing , ISTAT Ionized Calcium 1.11 mol/L Low 1.12-1.32 [facility] Comment on above: Performed By: #### E RBMP #### [address] Point of Care testing , Potassium [Moles/Vol] 6.4 mmol/L Off scale high 3.5-4.9 [facility] Comment on above: Performed By: #### E RBMP #### [address] Point of Care testing , Sodium [Moles/Vol] 134 mmol/L Low 138-146 [facility] Comment on above: Performed By: #### E RBMP #### [address] Point of Care testing , Urea nitrogen [Mass/Vol] 69 mg/dL High 8-26 [facility] Comment on above: Performed By: #### E RBMP #### [address] Point of Care testing , ISTAT ER Chem8+ PanelOrdered By: Kavin Escobar on 10-16-2024 Hematocrit (Bld) [Volume fraction] 36.0 % Low 38.0-51.0 [facility] Comment on above: Performed By: #### E RBMP #### [address] Point of Care testing , Magnesiumon 10-16-2024 Magnesium [Mass/Vol] 1.4 mg/dL Low 1.9-2.7 [facility] Comment on above: Result Comment: PERF ORMED BY: [place] [address] PATHOLOGIST COILED TUBING OPERATOR MAY HYDE M.D. Performed By: #### A 1C [facility] eA #### [address] Monocyte distribution width [Entitic volume] in Blood by AutomatedOrdered By: Jorge Luis Zavala on 10-16-2024 Monocyte distribution width Auto (Bld) [Entitic vol] Monocyte distribution width [Entitic volume] in Blood by Automated 0.00-20.00 [facility] Natriuretic peptide B [Mass/ Vol]Ordered By: Jorge Luis Zavala on 10-16-2024 Natriuretic peptide B (Bld) [Mass/Vol] BNP ser/plas High 5-100 [facility] Potassium (Bld) [Moles/Vol]O rdered By: Kavin Escobar on 10-16-2024 Potassium [Moles/Vol] Whole blood potass ium measurement Critically high 3.5-4.9 [facility] Prothrombin Time INRon 10-16 INR Coag (PPP) [Relative time] 2.6 {INR} Normal [facility] Comment on above: [...] heart valves: 3 - 4.5 PERFORMED BY: [place] [address] PATHOLOGIST COILED TUBING OPERATOR MAY HYDE M.D. Performed By: #### A [facility] eA #### [place] [id number] [facility] PT Coag (PPP) [Time] 28.9 s High 9.0-12.9 [facility] Comment on above: Result Comment: A he matocrit value greater than 55% may lead to inaccurate results in coagulation testing. Patients having hematocrit values >55% require a special collection tube for coagulation studies. Please contact the laboratory at [phone] for redraw instructions. Performed By: #### A [facility] e[facility] #### [address] [place] [address] [place] Prothrombin time (PT)Ordered By: Jorge Luis Zavala on 10-16-2024 PT Coag (PPP) [Time] Prothrombin time (PT) High 9.0- 12.9 [facility] Comment on above: A hematocrit value g reater than 55% may lead to inaccurate results in coagulation testing. Patients having hematocrit values >55% require a special collection tube for coagulation studies. Please contact the laboratory at [phone] for redraw instructions. Sodium (Bld) [Moles/Vol]Orde red By: Kavin Escobar on 10-16-2024 Sodium [Moles/Vol] Whole blood sodium measurement Low 138-146 [facility] Troponin I High Sensitivityo n 10-16-2024 Troponin I High Sensitivity 9.9 pg/mL Normal 0.0-15.0 [facility] Comment on above: Result Comment: PERF ORMED BY: [address] [place] [address] PATHOLOGIST COILED TUBING OPERATOR MAY HYDE M.D. Performed By: #### A 1C [facility] eA #### [facility] [address] [place] [address] Troponin I.cardiac [Mass/vol ume] in Serum or Plasma by Detection limit <= 0.01 ng/Ordered By: Jorge Luis Zavala on 10-16-2024 Troponin I.cardiac DL <= 0.01 ng/mL [Mass/Vol] Troponin I.cardiac [Mass/volume] in Serum or Plasma by Detection limit <= 0.01 ng/ 0.0-15.0 [facility] Urea nitrogen (Bld) [Mass/Vo l]Ordered By: Kavin Escobar on 10-16-2024 Urea nitrogen [Mass/Vol] Blood urea nitrogen (BUN) measurement in whole blood (mass/volume) High 8-26 [facility] Whole blood ionized calcium measurement (moles/volume)Ordered By: Kavin sEcobar on 10-16-2024 Calcium.ionized (Bld) [Moles/Vol] Whole blood ionized calcium measurement (moles/volume) Low 1.12-1.32 [facility] XR chest 1V portableon 10-16 XR chest 1V portable [facility] Main [place] [address] [place] [address] XRay Report Signed Patient: Joe Call MR#: [id number] 0 : 1945 Acct:[id number] Age/Sex: 79 / F ADM Date: 10/16/24 Loc: ER Room: Type: [facility] ER Attending Dr: Copies to: Jorge [...] Jarred Randolph M.D.10/16/2024 2:10 PM Dictation Location: [place] [address] Transcribed By: [facility] 10/16/24 1410 Dictated By: Jarred Randolph DO 10/16/24 1407 Signed By: 10/16/24 1410 Normal [facility] 37on 10-08-2024 37 *Cut lisinopril in h rae to 10mg daily. *Follow-up labs in 2 weeks. *Limit fluid intake to 64oz or 2 liters a day. Normal [facility] Office Visiton 10-08-2024 Follow-up visit [id number] Joe Call 1945 F Date Provider Department Center 10/08/2024 [facility] Family History Problem Relation Age of Onset Coronary artery disease Other Diabetes Other Polycystic kidney disease Other Family Status - Relation Status Age at Other Level of Service:[address] [place] OFFICE/OUTPATIENT ESTABLISHED MOD MDM 30 MIN Reason for Visit and Comments: Congestive Heart Failure [127] Hypertension [957401] Atrial Fibrillation [80] Normal [facility] Estimated glomerular filtrat ion rate (GFR) non- Americanon 09-29-2024 GFR/1.73 sq M.predicted among non-blacks MDRD (S/P/Bld) [Vol rate/Area] Estimated glomerular filtration rate (GFR) non- Low >=60 mL/min/1.73 m 2 [facility] Laboratory - Chemistry and C hemistry - challengeon 09-29-2024 Calcium [Mass/Vol] 8.8 mg/dL 8.5-10.1 [facility] Chloride [Moles/Vol] 102 mmol/L 98-107 [facility] CO2 [Moles/Vol] 24.9 mmol/L 21.0-32.0 [facility] Creatinine [Mass/Vol] 1.92 mg/dL High 0.55-1.02 [facility] GFR/1.73 sq M.predicted MDRD (S/P/Bld) [Vol rate/Area] 31 mL/min/{1.73_m2} Low >=60 mL/min/1.73 m 2 [facility] Glucose [Mass/Vol] 387 mg/dL High 74-106 [facility] Potassium [Moles/Vol] 5.0 mmol/L 3.5-5.1 [facility] Sodium [Moles/Vol] 136 mmol/L 136-145 [facility] Urea nitrogen [Mass/Vol] 64.0 mg/dL High 7.0-18.0 [facility] Urea nitrogen/Creatinine [Mass ratio] 33.3 mg/mg [facility] Serum or plasma anion gap de terminationon 09-29-2024 Anion gap [Moles/Vol] Serum or plasma an ion gap determination [facility] 37on 09-03-2024 37 *Your kidney functio n worsened. Please hold your lasix for 2 days and resume on 09/06/24 and only take 40mg once a day in the morning. *Hold your lisinopril. *Have follow-up lab work in 1 week to recheck your kidney function. *Let cardiology know if you have any weight gain or worsening shortness of breath or worsening leg swelling. Normal [facility] Office Visiton 09-03-2024 Follow-up visit [id number] Joe Call 1945 Provider Department Center 09/03/2024 YAMEL OCAMPO Family History Problem Relation Age of Onset Coronary artery disease Other Diabetes Other Polycystic kidney disease Other Family Status - Relation Status Age at Other Level of Service:[address]172 [place] OFFICE/OUTPATIENT ESTABLISHED MOD MDM 30 MIN Reason for Visit and Comments: Congestive Heart Failure [127] Atrial Fibrillation [80] Hypertension [500218] Normal [facility] Office Visiton 08-20-2024 Follow-up visit [id number] Joe Call 1945 Provider Department Center 08/20/2024 YAMEL OCAMPO Family History Problem Relation Age of Onset Coronary artery disease Other Diabetes Other Polycystic kidney disease Other Family Status - Relation Status Age at Other Level of Service:[address] [place] OFFICE/OUTPATIENT ESTABLISHED MOD MDM 30 MIN Reason for Visit and Comments: Congestive Heart Failure [127] Normal [facility] Basophils Auto (Bld) [#/Vol] on 07-25-2024 Basophils (Bld) [#/Vol] 0.1 10 3/uL 0.0-0.1 [facility] Basophils/100 WBC Auto (Bld) on 07-25-2024 Basophils/100 WBC (Bld) 1.2 % 0.2-2.0 [facility] Eosinophils/100 WBC Auto (Bl d)on 07-25-2024 Eosinophils/100 WBC (Bld) 1.6 % 0.9-7.0 [facility] Erythrocyte distribution wid th Auto (RBC) [Ratio]on 07-25-2024 Erythrocyte distribution width (RBC) [Ratio] 13.7 % 11.0-15.0 [facility] Estimated glomerular filtrat ion rate (GFR) non- Americanon 07-25-2024 GFR/1.73 sq M.predicted among non-blacks MDRD (S/P/Bld) [Vol rate/Area] 47 mL/min/{1.73_m2} Low >=60 [facility] Globulin Calc (S) [Mass/Vol] on 07-25-2024 Globulin (S) [Mass/Vol] 4.7 g/dL [facility] Hematocrit Auto (Bld) [Volum e fraction]on 07-25-2024 Hematocrit (Bld) [Volume fraction] 33.6 % Low 36.0-48.0 [facility] Hemoglobin [Mass/volume] in Bloodon 07-25-2024 Hemoglobin (Bld) [Mass/Vol] 11.0 g/dL Low 12.0-16.0 [facility] Laboratory - Chemistry and C hemistry - challengeon 07-25-2024 Albumin [Mass/Vol] 2.3 g/dL Low 3.4-5.0 [facility] ALP [Catalytic activity/Vol] 101 U/L 46-116 [facility] ALT [Catalytic activity/Vol] 14 U/L 14-59 [facility] AST [Catalytic activity/Vol] 13 U/L Low 15-37 [facility] Bilirubin [Mass/Vol] 0.8 mg/dL 0.2-1.0 [facility] Calcium [Mass/Vol] 8.6 mg/dL 8.5-10.1 [facility] Chloride [Moles/Vol] 102 mmol/L 98-107 [facility] CO2 [Moles/Vol] 27.8 mmol/L 21.0-32.0 [facility] Creatinine [Mass/Vol] 1.13 mg/dL High 0.55-1.02 [facility] GFR/1.73 sq M.predicted MDRD (S/P/Bld) [Vol rate/Area] 56 mL/min/{1.73_m2} Low >=60 [facility] Glucose [Mass/Vol] 228 mg/dL High 74-106 [facility] Potassium [Moles/Vol] 3.7 mmol/L 3.5-5.1 [facility] Protein [Mass/Vol] 7.0 g/dL 6.4-8.2 [facility] Sodium [Moles/Vol] 140 mmol/L 136-145 [facility] Urea nitrogen [Mass/Vol] 26.0 mg/dL High 7.0-18.0 [facility] Urea nitrogen/Creatinine [Mass ratio] 23.0 mg/mg [facility] Laboratory - Hematology and Cell countson 07-25-2024 Immature granulocytes/100 WBC (Bld) 0.2 % 0.0-0.5 [facility] Leukocytes [#/volume] correc gali for nucleated erythrocytes in Blood by Automated counon 07-25-2024 WBC corrected for nucl RBC Auto (Bld) [#/Vol] 8.7 10 3/uL 4.0-11.0 [facility] Lymphocytes Auto (Bld) [#/Vo l]on 07-25-2024 Lymphocytes (Bld) [#/Vol] 1.4 10 3/uL 1.2-3.8 [facility] Lymphocytes/100 WBC Auto (Bl d)on 07-25-2024 Lymphocytes/100 WBC (Bld) 15.9 % Low 20.5-60.0 [facility] MCH Auto (RBC) [Entitic mass ]on 07-25-2024 MCH (RBC) [Entitic mass] 29.7 pg 26.7-34.0 [facility] MCHC Auto (RBC) [Mass/Vol]on 07-25-2024 MCHC (RBC) [Mass/Vol] 32.7 g/dL 29.9-35.2 [facility] MCV Auto (RBC) [Entitic vol] on 07-25-2024 MCV (RBC) [Entitic vol] 90.8 fL 81.0-99.0 [facility] Monocytes Auto (Bld) [#/Vol] on 07-25-2024 Monocytes (Bld) [#/Vol] 0.7 10 3/uL 0.3-0.8 [facility] Monocytes/100 WBC Auto (Bld) on 07-25-2024 Monocytes/100 WBC (Bld) 8.2 % 1.7-12.0 [facility] Neutrophils Auto (Bld) [#/Vo l]on 07-25-2024 Neutrophils (Bld) [#/Vol] 6.3 10 3/uL 1.4-6.5 [facility] Neutrophils/100 WBC Auto (Bl d)on 07-25-2024 Neutrophils/100 WBC (Bld) 72.9 % 43.0-75.0 [facility] No Panel Informationon 07-25 Eosinophils # (Auto) 0.1 10 3/uL 0.0-0.7 [facility] Immature Granulocyte # (Auto) 0.02 10 3/uL 0.00-0.03 [facility] Platelet mean volume Auto (B ld) [Entitic vol]on 07-25-2024 Platelet mean volume (Bld) [Entitic vol] 10.3 fL 9.5-13.5 [facility] Platelets Auto (Bld) [#/Vol] on 07-25-2024 Platelets (Bld) [#/Vol] 239 10 3/uL 150-450 [facility] RBC Auto (Bld) [#/Vol]on RBC (Bld) [#/Vol] 3.70 10 6/uL Low 4.20-5.40 [facility] Serum or plasma albumin/glob ulin mass ratioon 07-25-2024 Albumin/Globulin [Mass ratio] 0.5 {ratio} [facility] Serum or plasma anion gap de terminationon 07-25-2024 Anion gap [Moles/Vol] 13.9 mmol/L Fi [facility] Basophils Auto (Bld) [#/Vol] on 07-24-2024 Basophils (Bld) [#/Vol] 0.1 10 3/uL 0.0-0.1 [facility] Basophils/100 WBC Auto (Bld) on 07-24-2024 Basophils/100 WBC (Bld) 0.7 % 0.2-2.0 [facility] Eosinophils/100 WBC Auto (Bl d)on 07-24-2024 Eosinophils/100 WBC (Bld) 1.7 % 0.9-7.0 [facility] Erythrocyte distribution wid th Auto (RBC) [Ratio]on 07-24-2024 Erythrocyte distribution width (RBC) [Ratio] 13.7 % 11.0-15.0 [facility] Estimated glomerular filtrat ion rate (GFR) non- Americanon 07-24-2024 GFR/1.73 sq M.predicted among non-blacks MDRD (S/P/Bld) [Vol rate/Area] 48 mL/min/{1.73_m2} Low >=60 [facility] Hematocrit Auto (Bld) [Volum e fraction]on 07-24-2024 Hematocrit (Bld) [Volume fraction] 34.5 % Low 36.0-48.0 [facility] Hemoglobin [Mass/volume] in Bloodon 07-24-2024 Hemoglobin (Bld) [Mass/Vol] 11.2 g/dL Low 12.0-16.0 [facility] Laboratory - Chemistry and C hemistry - challengeon 07-24-2024 Calcium [Mass/Vol] 8.9 mg/dL 8.5-10.1 [facility] Chloride [Moles/Vol] 104 mmol/L 98-107 [facility] CO2 [Moles/Vol] 26.1 mmol/L 21.0-32.0 [facility] Creatinine [Mass/Vol] 1.11 mg/dL High 0.55-1.02 [facility] GFR/1.73 sq M.predicted MDRD (S/P/Bld) [Vol rate/Area] 58 mL/min/{1.73_m2} Low >=60 [facility] Glucose [Mass/Vol] 247 mg/dL High 74-106 [facility] Natriuretic peptide B (Bld) [Mass/Vol] 6277.0 pg/mL High <=1800.0 [facility] Comment on above: RESULTS CALLED TO YOEL STEWARD RN IN ER BY Mira Martinez at 1430 Potassium [Moles/Vol] 4.1 mmol/L 3.5-5.1 [facility] Sodium [Moles/Vol] 141 mmol/L 136-145 [facility] Urea nitrogen [Mass/Vol] 28.0 mg/dL High 7.0-18.0 [facility] Urea nitrogen/Creatinine [Mass ratio] 25.2 mg/mg [facility] Laboratory - Hematology and Cell countson 07-24-2024 Immature granulocytes/100 WBC (Bld) 0.3 % 0.0-0.5 [facility] Leukocytes [#/volume] correc gali for nucleated erythrocytes in Blood by Automated counon 07-24-2024 WBC corrected for nucl RBC Auto (Bld) [#/Vol] 9.7 10 3/uL 4.0-11.0 [facility] Lymphocytes Auto (Bld) [#/Vo l]on 07-24-2024 Lymphocytes (Bld) [#/Vol] 0.9 10 3/uL Low 1.2-3.8 [facility] Lymphocytes/100 WBC Auto (Bl d)on 07-24-2024 Lymphocytes/100 WBC (Bld) 9.2 % Low 20.5-60.0 [facility] MCH Auto (RBC) [Entitic mass ]on 07-24-2024 MCH (RBC) [Entitic mass] 29.9 pg 26.7-34.0 [facility] MCHC Auto (RBC) [Mass/Vol]on 07-24-2024 MCHC (RBC) [Mass/Vol] 32.5 g/dL 29.9-35.2 [facility] MCV Auto (RBC) [Entitic vol] on 07-24-2024 MCV (RBC) [Entitic vol] 92.0 fL 81.0-99.0 [facility] Monocytes Auto (Bld) [#/Vol] on 07-24-2024 Monocytes (Bld) [#/Vol] 0.5 10 3/uL 0.3-0.8 [facility] Monocytes/100 WBC Auto (Bld) on 07-24-2024 Monocytes/100 WBC (Bld) 5.3 % 1.7-12.0 [facility] Neutrophils Auto (Bld) [#/Vo l]on 07-24-2024 Neutrophils (Bld) [#/Vol] 8.0 10 3/uL High 1.4-6.5 [facility] Neutrophils/100 WBC Auto (Bl d)on 07-24-2024 Neutrophils/100 WBC (Bld) 82.8 % High 43.0-75.0 [facility] No Panel Informationon 07-24 Eosinophils # (Auto) 0.2 10 3/uL 0.0-0.7 [facility] Immature Granulocyte # (Auto) 0.03 10 3/uL 0.00-0.03 [facility] Troponin I High Sensitivity 20.5 pg/mL 4.0-51.3 [facility] Comment on above: CUT-OFF POINTS HAVE BEEN [...] volume (Bld) [Entitic vol] 10.4 fL 9.5-13.5 [facility] Platelets Auto (Bld) [#/Vol] on 07-24-2024 Platelets (Bld) [#/Vol] 236 10 3/uL 150-450 [facility] RBC Auto (Bld) [#/Vol]on RBC (Bld) [#/Vol] 3.75 10 6/uL Low 4.20-5.40 [facility] Serum or plasma anion gap de terminationon 07-24-2024 Anion gap [Moles/Vol] 15.0 mmol/L [facility] Urine Cultureon 07-17-2024 Bacteria identified Cx Nom (U) ORGANISM: Citrobacter freundii complex (O:CITFRC) Howard Count >100,000 ORGANISM: Proteus mirabilis (O:PROMIR) Howard Count 20,000 Aerobic MIRTHA Charge (NMIC56) - [...] RESISTANT TO ALL B-LACTAM DRUGS. PERFORMED BY: [place] [address] PATHOLOGIST COILED TUBING OPERATOR CHOLO YEAGER M.D. Normal [facility] Comment on above: Performed By: #### A [facility] eA #### [address] Urine culture routineOrdered By: Shantel Steven on 07-17-2024 Bacteria identified Cx Nom (U) Proteus mirabilis Abnormal [facility] Erythrocyte distribution wid th Auto (RBC) [Ratio]on 07-15-2024 Erythrocyte distribution width (RBC) [Ratio] 13.3 % 11.0-15.0 [facility] Estimated glomerular filtrat ion rate (GFR) non- Americanon 07-15-2024 GFR/1.73 sq M.predicted among non-blacks MDRD (S/P/Bld) [Vol rate/Area] 47 mL/min/{1.73_m2} Low >=60 [facility] Globulin Calc (S) [Mass/Vol] on 07-15-2024 Globulin (S) [Mass/Vol] 4.2 g/dL [facility] Hematocrit Auto (Bld) [Volum e fraction]on 07-15-2024 Hematocrit (Bld) [Volume fraction] 34.9 % Low 36.0-48.0 [facility] Hemoglobin [Mass/volume] in Bloodon 07-15-2024 Hemoglobin (Bld) [Mass/Vol] 11.6 g/dL Low 12.0-16.0 [facility] Laboratory - Chemistry and C hemistry - challengeon 07-15-2024 Bilirubin Ql (U) Negative NEGATIVE [facility] Glucose (U) [Mass/Vol] Negative NEGATIVE [facility] Ketones Ql (U) Negative NEGATIVE [facility] pH (U) 6.5 [pH] 5.0-9.0 [facility] Specific gravity (U) [Rel density] 1.020 1.005-1.025 [facility] Urobilinogen Qn (U) 0.2 {Meka'U}/dL 0.2-1.0 [facility] Albumin [Mass/Vol] 2.6 g/dL Low 3.4-5.0 [facility] ALP [Catalytic activity/Vol] 87 U/L 46-116 [facility] ALT [Catalytic activity/Vol] 18 U/L 14-59 [facility] AST [Catalytic activity/Vol] 14 U/L Low 15-37 [facility] Bilirubin [Mass/Vol] 0.6 mg/dL 0.2-1.0 [facility] Calcium [Mass/Vol] 8.6 mg/dL 8.5-10.1 [facility] Chloride [Moles/Vol] 101 mmol/L 98-107 [facility] CO2 [Moles/Vol] 31.4 mmol/L 21.0-32.0 [facility] Creatinine [Mass/Vol] 1.12 mg/dL High 0.55-1.02 [facility] GFR/1.73 sq M.predicted MDRD (S/P/Bld) [Vol rate/Area] 57 mL/min/{1.73_m2} Low >=60 [facility] Glucose [Mass/Vol] 153 mg/dL High 74-106 [facility] Natriuretic peptide B (Bld) [Mass/Vol] 3410.0 pg/mL High <=1800.0 [facility] Comment on above: RESULTS CALLED TO Bogdan Robin RN at 0840 Potassium [Moles/Vol] 3.6 mmol/L 3.5-5.1 [facility] Protein [Mass/Vol] 6.8 g/dL 6.4-8.2 [facility] Sodium [Moles/Vol] 141 mmol/L 136-145 [facility] Urea nitrogen [Mass/Vol] 43.0 mg/dL High 7.0-18.0 [facility] Urea nitrogen/Creatinine [Mass ratio] 38.4 mg/mg [facility] Laboratory - Specimen inform ationon 07-15-2024 Appearance (U) CLEAR CLEAR [facility] Color (U) LT. YELLOW YELLOW [facility] Laboratory - Urinalysison Leukocyte esterase Test strip Ql (U) Negative NEGATIVE [facility] Mucus Ql (Urine sed) NONE SEEN NONE SEEN [facility] Nitrite Ql (U) Negative NEGATIVE [facility] Protein Ql (U) 100 mg/dL Abnormal NEG/TRACE [facility] Leukocytes [#/volume] correc gali for nucleated erythrocytes in Blood by Automated counon 07-15-2024 WBC corrected for nucl RBC Auto (Bld) [#/Vol] 8.5 10 3/uL 4.0-11.0 [facility] MCH Auto (RBC) [Entitic mass ]on 07-15-2024 MCH (RBC) [Entitic mass] 29.9 pg 26.7-34.0 [facility] MCHC Auto (RBC) [Mass/Vol]on 07-15-2024 MCHC (RBC) [Mass/Vol] 33.2 g/dL 29.9-35.2 [facility] MCV Auto (RBC) [Entitic vol] on 07-15-2024 MCV (RBC) [Entitic vol] 89.9 fL 81.0-99.0 [facility] No Panel Informationon 07-15 Urine Bacteria NONE SEEN #/HPF NONE SEEN [facility] Urine Occult Blood TRACE-I NEGATIVE [facility] Urine RBC 0-2 #/HPF 0-2 [facility] Urine Squamous Epithelial Cells FEW #/LPF Abnormal NONE/RARE [facility] Urine WBC NONE SEEN #/HPF NONE SEEN [facility] NONE SEEN #/HPF NONE SEEN [facility] Negative NEGATIVE [facility] TRACE-I NEGATIVE [facility] CLEAR CLEAR [facility] LT. YELLOW YELLOW [facility] NONE SEEN NONE SEEN [facility] 6.5 5.0-9.0 [facility] 100 mg/dL Abnormal NEG/TRACE [facility] 0-2 #/HPF 0-2 [facility] 1.020 1.005-1.025 [facility] [facility] FEW #/LPF Abnormal NONE/RARE [facility] 0.2 EU/dL 0.2-1.0 [facility] Troponin I High Sensitivity 21.3 pg/mL 4.0-51.3 [facility] Comment on above: CUT-OFF POINTS HAVE BEEN [...] AND CLINICAL INFORMATION. 3410.0 pg/mL High <=1800.0 [facility] 21.3 pg/mL 4.0-51.3 [facility] 2.6 g/dL Low 3.4-5.0 [facility] 87 U/L 46-116 [facility] 18 U/L 14-59 [facility] 14 U/L Low 15-37 [facility] 38.4 [facility] 43.0 mg/dL High 7.0-18.0 [facility] 8.6 mg/dL 8.5-10.1 [facility] 101 mmol/L 98-107 [facility] 31.4 mmol/L 21.0-32.0 [facility] 1.12 mg/dL High 0.55-1.02 [facility] 57 Low >=60 [facility] 153 mg/dL High 74-106 [facility] 3.6 mmol/L 3.5-5.1 [facility] 141 mmol/L 136-145 [facility] 0.6 mg/dL 0.2-1.0 [facility] 6.8 g/dL 6.4-8.2 [facility] Platelet mean volume Auto (B ld) [Entitic vol]on 07-15-2024 Platelet mean volume (Bld) [Entitic vol] 11.0 fL 9.5-13.5 [facility] Platelets Auto (Bld) [#/Vol] on 07-15-2024 Platelets (Bld) [#/Vol] 177 10 3/uL 150-450 [facility] RBC Auto (Bld) [#/Vol]on RBC (Bld) [#/Vol] 3.88 10 6/uL Low 4.20-5.40 [facility] Serum or plasma albumin/glob ulin mass ratioon 07-15-2024 Albumin/Globulin [Mass ratio] 0.6 {ratio} [facility] Serum or plasma anion gap de terminationon 07-15-2024 Anion gap [Moles/Vol] 12.2 mmol/L [facility] Basophils Auto (Bld) [#/Vol] on 07-14-2024 Basophils (Bld) [#/Vol] 0.1 10 3/uL 0.0-0.1 [facility] Basophils/100 WBC Auto (Bld) on 07-14-2024 Basophils/100 WBC (Bld) 0.9 % 0.2-2.0 [facility] Eosinophils/100 WBC Auto (Bl d)on 07-14-2024 Eosinophils/100 WBC (Bld) 1.3 % 0.9-7.0 [facility] Erythrocyte distribution wid th Auto (RBC) [Ratio]on 07-14-2024 Erythrocyte distribution width (RBC) [Ratio] 13.5 % 11.0-15.0 [facility] Estimated glomerular filtrat ion rate (GFR) non- Americanon 07-14-2024 GFR/1.73 sq M.predicted among non-blacks MDRD (S/P/Bld) [Vol rate/Area] 30 mL/min/{1.73_m2} Low >=60 [facility] Hematocrit Auto (Bld) [Volum e fraction]on 07-14-2024 Hematocrit (Bld) [Volume fraction] 38.5 % 36.0-48.0 [facility] Hemoglobin [Mass/volume] in Bloodon 07-14-2024 Hemoglobin (Bld) [Mass/Vol] 12.8 g/dL 12.0-16.0 [facility] Laboratory - Chemistry and C hemistry - challengeon 07-14-2024 Calcium [Mass/Vol] 9.0 mg/dL 8.5-10.1 [facility] Chloride [Moles/Vol] 96 mmol/L Low 98-107 [facility] CO2 [Moles/Vol] 35.5 mmol/L High 21.0-32.0 [facility] Creatinine [Mass/Vol] 1.65 mg/dL High 0.55-1.02 [facility] GFR/1.73 sq M.predicted MDRD (S/P/Bld) [Vol rate/Area] 36 mL/min/{1.73_m2} Low >=60 [facility] Glucose [Mass/Vol] 458 mg/dL High 74-106 [facility] Potassium [Moles/Vol] 4.0 mmol/L 3.5-5.1 [facility] Sodium [Moles/Vol] 135 mmol/L Low 136-145 [facility] Urea nitrogen [Mass/Vol] 52.0 mg/dL High 7.0-18.0 [facility] Urea nitrogen/Creatinine [Mass ratio] 31.5 mg/mg [facility] Laboratory - Hematology and Cell countson 07-14-2024 Immature granulocytes/100 WBC (Bld) 0.1 % 0.0-0.5 [facility] Leukocytes [#/volume] correc gali for nucleated erythrocytes in Blood by Automated counon 07-14-2024 WBC corrected for nucl RBC Auto (Bld) [#/Vol] 8.2 10 3/uL 4.0-11.0 [facility] Lymphocytes Auto (Bld) [#/Vo l]on 07-14-2024 Lymphocytes (Bld) [#/Vol] 1.1 10 3/uL Low 1.2-3.8 [facility] Lymphocytes/100 WBC Auto (Bl d)on 07-14-2024 Lymphocytes/100 WBC (Bld) 13.7 % Low 20.5-60.0 [facility] MCH Auto (RBC) [Entitic mass ]on 07-14-2024 MCH (RBC) [Entitic mass] 30.0 pg 26.7-34.0 [facility] MCHC Auto (RBC) [Mass/Vol]on 07-14-2024 MCHC (RBC) [Mass/Vol] 33.2 g/dL 29.9-35.2 [facility] MCV Auto (RBC) [Entitic vol] on 07-14-2024 MCV (RBC) [Entitic vol] 90.2 fL 81.0-99.0 [facility] Monocytes Auto (Bld) [#/Vol] on 07-14-2024 Monocytes (Bld) [#/Vol] 0.5 10 3/uL 0.3-0.8 [facility] Monocytes/100 WBC Auto (Bld) on 07-14-2024 Monocytes/100 WBC (Bld) 6.6 % 1.7-12.0 [facility] Neutrophils Auto (Bld) [#/Vo l]on 07-14-2024 Neutrophils (Bld) [#/Vol] 6.3 10 3/uL 1.4-6.5 [facility] Neutrophils/100 WBC Auto (Bl d)on 07-14-2024 Neutrophils/100 WBC (Bld) 77.4 % High 43.0-75.0 [facility] No Panel Informationon 07-14 Eosinophils # (Auto) 0.1 10 3/uL 0.0-0.7 [facility] Immature Granulocyte # (Auto) 0.01 10 3/uL 0.00-0.03 [facility] Troponin I High Sensitivity 17.9 pg/mL 4.0-51.3 [facility] Comment on above: CUT-OFF POINTS HAVE BEEN [...] DIAGNOSTIC AND CLINICAL INFORMATION. 17.9 pg/mL 4.0-51.3 [facility] 31.5 [facility] 0.1 10 3/uL 0.0-0.7 [facility] 52.0 mg/dL High 7.0-18.0 [facility] 9.0 mg/dL 8.5-10.1 [facility] 96 mmol/L Low 98-107 [facility] 35.5 mmol/L High 21.0-32.0 [facility] 0.01 10 3/uL 0.00-0.03 [facility] 1.65 mg/dL High 0.55-1.02 [facility] 0.1 % 0.0-0.5 [facility] 36 Low >=60 [facility] 458 mg/dL High 74-106 [facility] 4.0 mmol/L 3.5-5.1 [facility] 135 mmol/L Low 136-145 [facility] Platelet mean volume Auto (B ld) [Entitic vol]on 07-14-2024 Platelet mean volume (Bld) [Entitic vol] 11.0 fL 9.5-13.5 [facility] Platelets Auto (Bld) [#/Vol] on 07-14-2024 Platelets (Bld) [#/Vol] 182 10 3/uL 150-450 [facility] RBC Auto (Bld) [#/Vol]on RBC (Bld) [#/Vol] 4.27 10 6/uL 4.20-5.40 [facility] Serum or plasma anion gap de terminationon 07-14-2024 Anion gap [Moles/Vol] 7.5 mmol/L [facility] Estimated glomerular filtrat ion rate (GFR) non- Americanon 06-24-2024 GFR/1.73 sq M.predicted among non-blacks MDRD (S/P/Bld) [Vol rate/Area] 38 mL/min/{1.73_m2} Low >=60 [facility] Laboratory - Chemistry and C hemistry - challengeon 06-24-2024 Calcium [Mass/Vol] 8.4 mg/dL Low 8.5-10.1 [facility] Chloride [Moles/Vol] 100 mmol/L 98-107 [facility] CO2 [Moles/Vol] 31.1 mmol/L 21.0-32.0 [facility] Creatinine [Mass/Vol] 1.34 mg/dL High 0.55-1.02 [facility] GFR/1.73 sq M.predicted MDRD (S/P/Bld) [Vol rate/Area] 46 mL/min/{1.73_m2} Low >=60 [facility] Glucose [Mass/Vol] 222 mg/dL High 74-106 [facility] Potassium [Moles/Vol] 3.6 mmol/L 3.5-5.1 [facility] Sodium [Moles/Vol] 138 mmol/L 136-145 [facility] Urea nitrogen [Mass/Vol] 32.0 mg/dL High 7.0-18.0 [facility] Urea nitrogen/Creatinine [Mass ratio] 23.9 mg/mg [facility] No Panel Informationon 06-24 23.9 [facility] 32.0 mg/dL High 7.0-18.0 [facility] 8.4 mg/dL Low 8.5-10.1 [facility] 100 mmol/L 98-107 [facility] 31.1 mmol/L 21.0-32.0 [facility] 1.34 mg/dL High 0.55-1.02 [facility] 46 Low >=60 [facility] 222 mg/dL High 74-106 [facility] 3.6 mmol/L 3.5-5.1 [facility] 138 mmol/L 136-145 [facility] Serum or plasma anion gap de terminationon 06-24-2024 Anion gap [Moles/Vol] 10.5 mmol/L [facility] Basophils Auto (Bld) [#/Vol] on 06-10-2024 Basophils (Bld) [#/Vol] 0.1 10 3/uL 0.0-0.1 [facility] Basophils/100 WBC Auto (Bld) on 06-10-2024 Basophils/100 WBC (Bld) 1.0 % 0.2-2.0 [facility] Eosinophils/100 WBC Auto (Bl d)on 06-10-2024 Eosinophils/100 WBC (Bld) 1.3 % 0.9-7.0 [facility] Erythrocyte distribution wid th Auto (RBC) [Ratio]on 06-10-2024 Erythrocyte distribution width (RBC) [Ratio] 14.6 % 11.0-15.0 [facility] Estimated glomerular filtrat ion rate (GFR) non- Americanon 06-10-2024 GFR/1.73 sq M.predicted among non-blacks MDRD (S/P/Bld) [Vol rate/Area] 54 mL/min/{1.73_m2} Low >=60 [facility] Globulin Calc (S) [Mass/Vol] on 06-10-2024 Globulin (S) [Mass/Vol] 4.5 g/dL [facility] Hematocrit Auto (Bld) [Volum e fraction]on 06-10-2024 Hematocrit (Bld) [Volume fraction] 36.8 % 36.0-48.0 [facility] Hemoglobin [Mass/volume] in Bloodon 06-10-2024 Hemoglobin (Bld) [Mass/Vol] 12.1 g/dL 12.0-16.0 [facility] Laboratory - Chemistry and C hemistry - challengeon 06-10-2024 Albumin [Mass/Vol] 2.4 g/dL Low 3.4-5.0 [facility] ALP [Catalytic activity/Vol] 94 U/L 46-116 [facility] ALT [Catalytic activity/Vol] 13 U/L Low 14-59 [facility] AST [Catalytic activity/Vol] 13 U/L Low 15-37 [facility] Bilirubin [Mass/Vol] 0.9 mg/dL 0.2-1.0 [facility] Calcium [Mass/Vol] 8.9 mg/dL 8.5-10.1 [facility] Chloride [Moles/Vol] 101 mmol/L 98-107 [facility] CO2 [Moles/Vol] 29.4 mmol/L 21.0-32.0 [facility] Creatinine [Mass/Vol] 1.00 mg/dL 0.55-1.02 [facility] GFR/1.73 sq M.predicted MDRD (S/P/Bld) [Vol rate/Area] mL/min/{1.73_m2} >=60 [facility] Glucose [Mass/Vol] 167 mg/dL High 74-106 [facility] Potassium [Moles/Vol] 3.4 mmol/L Low 3.5-5.1 [facility] Protein [Mass/Vol] 6.9 g/dL 6.4-8.2 [facility] Sodium [Moles/Vol] 136 mmol/L 136-145 [facility] Urea nitrogen [Mass/Vol] 24.0 mg/dL High 7.0-18.0 [facility] Urea nitrogen/Creatinine [Mass ratio] 24.0 mg/mg [facility] Laboratory - Hematology and Cell countson 06-10-2024 Immature granulocytes/100 WBC (Bld) 0.3 % 0.0-0.5 [facility] Leukocytes [#/volume] correc gali for nucleated erythrocytes in Blood by Automated counon 06-10-2024 WBC corrected for nucl RBC Auto (Bld) [#/Vol] 7.9 10 3/uL 4.0-11.0 [facility] Lymphocytes Auto (Bld) [#/Vo l]on 06-10-2024 Lymphocytes (Bld) [#/Vol] 1.3 10 3/uL 1.2-3.8 [facility] Lymphocytes/100 WBC Auto (Bl d)on 06-10-2024 Lymphocytes/100 WBC (Bld) 16.8 % Low 20.5-60.0 [facility] MCH Auto (RBC) [Entitic mass ]on 06-10-2024 MCH (RBC) [Entitic mass] 29.8 pg 26.7-34.0 [facility] MCHC Auto (RBC) [Mass/Vol]on 06-10-2024 MCHC (RBC) [Mass/Vol] 32.9 g/dL 29.9-35.2 [facility] MCV Auto (RBC) [Entitic vol] on 06-10-2024 MCV (RBC) [Entitic vol] 90.6 fL 81.0-99.0 [facility] Monocytes Auto (Bld) [#/Vol] on 06-10-2024 Monocytes (Bld) [#/Vol] 0.8 10 3/uL 0.3-0.8 [facility] Monocytes/100 WBC Auto (Bld) on 06-10-2024 Monocytes/100 WBC (Bld) 9.8 % 1.7-12.0 [facility] Neutrophils Auto (Bld) [#/Vo l]on 06-10-2024 Neutrophils (Bld) [#/Vol] 5.6 10 3/uL 1.4-6.5 [facility] Neutrophils/100 WBC Auto (Bl d)on 06-10-2024 Neutrophils/100 WBC (Bld) 70.8 % 43.0-75.0 [facility] No Panel Informationon 06-10 Eosinophils # (Auto) 0.1 10 3/uL 0.0-0.7 [facility] Immature Granulocyte # (Auto) 0.02 10 3/uL 0.00-0.03 [facility] 2.4 g/dL Low 3.4-5.0 [facility] 0.1 10 3/uL 0.0-0.7 [facility] 94 U/L 46-116 [facility] 13 U/L Low 15-37 [facility] 24.0 [facility] 0.02 10 3/uL 0.00-0.03 [facility] 24.0 mg/dL High 7.0-18.0 [facility] 0.3 % 0.0-0.5 [facility] 8.9 mg/dL 8.5-10.1 [facility] 101 mmol/L 98-107 [facility] 29.4 mmol/L 21.0-32.0 [facility] 1.00 mg/dL 0.55-1.02 [facility] >60 >=60 [facility] 167 mg/dL High 74-106 [facility] 3.4 mmol/L Low 3.5-5.1 [facility] 136 mmol/L 136-145 [facility] 0.9 mg/dL 0.2-1.0 [facility] 6.9 g/dL 6.4-8.2 [facility] Platelet mean volume Auto (B ld) [Entitic vol]on 06-10-2024 Platelet mean volume (Bld) [Entitic vol] 11.2 fL 9.5-13.5 [facility] Platelets Auto (Bld) [#/Vol] on 06-10-2024 Platelets (Bld) [#/Vol] 189 10 3/uL 150-450 [facility] RBC Auto (Bld) [#/Vol]on RBC (Bld) [#/Vol] 4.06 10 6/uL Low 4.20-5.40 [facility] Serum or plasma albumin/glob ulin mass ratioon 06-10-2024 Albumin/Globulin [Mass ratio] 0.5 {ratio} [facility] Serum or plasma anion gap de terminationon 06-10-2024 Anion gap [Moles/Vol] 9.0 mmol/L [facility] Basophils Auto (Bld) [#/Vol] on 06-09-2024 Basophils (Bld) [#/Vol] 0.1 10 3/uL 0.0-0.1 [facility] Basophils/100 WBC Auto (Bld) on 06-09-2024 Basophils/100 WBC (Bld) 1.0 % 0.2-2.0 [facility] Eosinophils/100 WBC Auto (Bl d)on 06-09-2024 Eosinophils/100 WBC (Bld) 1.5 % 0.9-7.0 [facility] Erythrocyte distribution wid th Auto (RBC) [Ratio]on 06-09-2024 Erythrocyte distribution width (RBC) [Ratio] 14.8 % 11.0-15.0 [facility] Estimated glomerular filtrat ion rate (GFR) non- Americanon 06-09-2024 GFR/1.73 sq M.predicted among non-blacks MDRD (S/P/Bld) [Vol rate/Area] mL/min/{1.73_m2} >=60 [facility] Fibrin D-dimer [Presence] in Platelet poor plasma by Latex agglutinationon 06-09-2024 Fibrin D-dimer LA Ql (PPP) 0.39 mg/L FEU <=0.59 [facility] Comment on above: Increases in D-Dimer concentration [...] on 06-09-2024 Globulin (S) [Mass/Vol] 4.8 g/dL [facility] Hematocrit Auto (Bld) [Volum e fraction]on 06-09-2024 Hematocrit (Bld) [Volume fraction] 37.7 % 36.0-48.0 [facility] Hemoglobin [Mass/volume] in Bloodon 06-09-2024 Hemoglobin (Bld) [Mass/Vol] 12.5 g/dL 12.0-16.0 [facility] Laboratory - Chemistry and C hemistry - challengeon 06-09-2024 Albumin [Mass/Vol] 2.5 g/dL Low 3.4-5.0 [facility] ALP [Catalytic activity/Vol] 86 U/L 46-116 [facility] ALT [Catalytic activity/Vol] 18 U/L 14-59 [facility] AST [Catalytic activity/Vol] 34 U/L 15-37 [facility] Bilirubin [Mass/Vol] 0.8 mg/dL 0.2-1.0 [facility] Calcium [Mass/Vol] 8.6 mg/dL 8.5-10.1 [facility] Chloride [Moles/Vol] 103 mmol/L 98-107 [facility] CO2 [Moles/Vol] 27.1 mmol/L 21.0-32.0 [facility] Creatinine [Mass/Vol] 0.88 mg/dL 0.55-1.02 [facility] GFR/1.73 sq M.predicted MDRD (S/P/Bld) [Vol rate/Area] mL/min/{1.73_m2} >=60 [facility] Glucose [Mass/Vol] 142 mg/dL High 74-106 [facility] Lipase [Catalytic activity/Vol] 45.0 U/L 16.0-77.0 [facility] Natriuretic peptide B (Bld) [Mass/Vol] 3488.0 pg/mL High <=1800.0 [facility] Comment on above: RESULTS CALLED TO MAIDA MCGOWAN RN @BY Alla Kevin [phone] Potassium [Moles/Vol] 5.0 mmol/L 3.5-5.1 [facility] Protein [Mass/Vol] 7.3 g/dL 6.4-8.2 [facility] Sodium [Moles/Vol] 135 mmol/L Low 136-145 [facility] Urea nitrogen [Mass/Vol] 28.0 mg/dL High 7.0-18.0 [facility] Urea nitrogen/Creatinine [Mass ratio] 31.8 mg/mg [facility] Laboratory - Hematology and Cell countson 06-09-2024 Immature granulocytes/100 WBC (Bld) 0.3 % 0.0-0.5 [facility] Laboratory - Microbiology an d Antimicrobial susceptibilityon 06-09-2024 SARS-CoV-2 (COVID-19) RNA FERN+probe Ql (Unsp spec) Negative NEGATIVE [facility] Comment on above: This test has not [...] diagnosis of Covid-19 under section 564(b)(1) [facility], [place] 360bbb-3(b)(1), unless the declaration isterminated or authorization is revoked sooner. Leukocytes [#/volume] correc gali for nucleated erythrocytes in Blood by Automated counon 06-09-2024 WBC corrected for nucl RBC Auto (Bld) [#/Vol] 8.9 10 3/uL 4.0-11.0 [facility] Lymphocytes Auto (Bld) [#/Vo l]on 06-09-2024 Lymphocytes (Bld) [#/Vol] 1.3 10 3/uL 1.2-3.8 [facility] Lymphocytes/100 WBC Auto (Bl d)on 06-09-2024 Lymphocytes/100 WBC (Bld) 15.1 % Low 20.5-60.0 [facility] MCH Auto (RBC) [Entitic mass ]on 06-09-2024 MCH (RBC) [Entitic mass] 30.3 pg 26.7-34.0 [facility] MCHC Auto (RBC) [Mass/Vol]on 06-09-2024 MCHC (RBC) [Mass/Vol] 33.2 g/dL 29.9-35.2 [facility] MCV Auto (RBC) [Entitic vol] on 06-09-2024 MCV (RBC) [Entitic vol] 91.5 fL 81.0-99.0 [facility] Monocytes Auto (Bld) [#/Vol] on 06-09-2024 Monocytes (Bld) [#/Vol] 0.7 10 3/uL 0.3-0.8 [facility] Monocytes/100 WBC Auto (Bld) on 06-09-2024 Monocytes/100 WBC (Bld) 7.9 % 1.7-12.0 [facility] Neutrophils Auto (Bld) [#/Vo l]on 06-09-2024 Neutrophils (Bld) [#/Vol] 6.6 10 3/uL High 1.4-6.5 [facility] Neutrophils/100 WBC Auto (Bl d)on 06-09-2024 Neutrophils/100 WBC (Bld) 74.2 % 43.0-75.0 [facility] No Panel Informationon 06-09 Negative NEGATIVE [facility] Eosinophils # (Auto) 0.1 10 3/uL 0.0-0.7 [facility] Immature Granulocyte # (Auto) 0.03 10 3/uL 0.00-0.03 [facility] Troponin I High Sensitivity 17.0 pg/mL 4.0-51.3 [facility] Comment on above: CUT-OFF POINTS HAVE BEEN [...] AND CLINICAL INFORMATION. 3488.0 pg/mL High <=1800.0 [facility] 45.0 U/L 16.0-77.0 [facility] 17.0 pg/mL 4.0-51.3 [facility] 2.5 g/dL Low 3.4-5.0 [facility] 0.1 10 3/uL 0.0-0.7 [facility] 86 U/L 46-116 [facility] 18 U/L 14-59 [facility] 34 U/L 15-37 [facility] 31.8 [facility] 0.03 10 3/uL 0.00-0.03 [facility] 28.0 mg/dL High 7.0-18.0 [facility] 0.3 % 0.0-0.5 [facility] 8.6 mg/dL 8.5-10.1 [facility] 103 mmol/L 98-107 [facility] 27.1 mmol/L 21.0-32.0 [facility] 0.88 mg/dL 0.55-1.02 [facility] >60 >=60 [facility] 142 mg/dL High 74-106 [facility] 5.0 mmol/L 3.5-5.1 [facility] 135 mmol/L Low 136-145 [facility] 0.8 mg/dL 0.2-1.0 [facility] 7.3 g/dL 6.4-8.2 [facility] Platelet mean volume Auto (B ld) [Entitic vol]on 06-09-2024 Platelet mean volume (Bld) [Entitic vol] 12.4 fL 9.5-13.5 [facility] Platelets Auto (Bld) [#/Vol] on 06-09-2024 Platelets (Bld) [#/Vol] 205 10 3/uL 150-450 [facility] RBC Auto (Bld) [#/Vol]on RBC (Bld) [#/Vol] 4.12 10 6/uL Low 4.20-5.40 [facility] Serum or plasma albumin/glob ulin mass ratioon 06-09-2024 Albumin/Globulin [Mass ratio] 0.5 {ratio} [facility] Serum or plasma anion gap de terminationon 06-09-2024 Anion gap [Moles/Vol] 9.9 mmol/L [facility] Basophils Auto (Bld) [#/Vol] on 06-01-2024 Basophils (Bld) [#/Vol] 0.1 10 3/uL 0.0-0.1 [facility] Basophils/100 WBC Auto (Bld) on 06-01-2024 Basophils/100 WBC (Bld) 0.9 % 0.2-2.0 [facility] Eosinophils/100 WBC Auto (Bl d)on 06-01-2024 Eosinophils/100 WBC (Bld) 1.2 % 0.9-7.0 [facility] Erythrocyte distribution wid th Auto (RBC) [Ratio]on 06-01-2024 Erythrocyte distribution width (RBC) [Ratio] 14.1 % 11.0-15.0 [facility] Estimated glomerular filtrat ion rate (GFR) non- Americanon 06-01-2024 GFR/1.73 sq M.predicted among non-blacks MDRD (S/P/Bld) [Vol rate/Area] 47 mL/min/{1.73_m2} Low >=60 [facility] Globulin Calc (S) [Mass/Vol] on 06-01-2024 Globulin (S) [Mass/Vol] 4.4 g/dL [facility] Hematocrit Auto (Bld) [Volum e fraction]on 06-01-2024 Hematocrit (Bld) [Volume fraction] 37.6 % 36.0-48.0 [facility] Hemoglobin [Mass/volume] in Bloodon 06-01-2024 Hemoglobin (Bld) [Mass/Vol] 12.5 g/dL 12.0-16.0 [facility] Laboratory - Chemistry and C hemistry - challengeon 06-01-2024 Albumin [Mass/Vol] 2.7 g/dL Low 3.4-5.0 [facility] ALP [Catalytic activity/Vol] 87 U/L 46-116 [facility] ALT [Catalytic activity/Vol] 18 U/L 14-59 [facility] AST [Catalytic activity/Vol] 16 U/L 15-37 [facility] Bilirubin [Mass/Vol] 0.5 mg/dL 0.2-1.0 [facility] Calcium [Mass/Vol] 8.7 mg/dL 8.5-10.1 [facility] Chloride [Moles/Vol] 101 mmol/L 98-107 [facility] CO2 [Moles/Vol] 28.9 mmol/L 21.0-32.0 [facility] Creatinine [Mass/Vol] 1.12 mg/dL High 0.55-1.02 [facility] GFR/1.73 sq M.predicted MDRD (S/P/Bld) [Vol rate/Area] 57 mL/min/{1.73_m2} Low >=60 [facility] Glucose [Mass/Vol] 232 mg/dL High 74-106 [facility] Potassium [Moles/Vol] 4.1 mmol/L 3.5-5.1 [facility] Protein [Mass/Vol] 7.1 g/dL 6.4-8.2 [facility] Sodium [Moles/Vol] 137 mmol/L 136-145 [facility] Urea nitrogen [Mass/Vol] 23.0 mg/dL High 7.0-18.0 [facility] Urea nitrogen/Creatinine [Mass ratio] 20.5 mg/mg [facility] Laboratory - Hematology and Cell countson 06-01-2024 Immature granulocytes/100 WBC (Bld) 0.2 % 0.0-0.5 [facility] Leukocytes [#/volume] correc gali for nucleated erythrocytes in Blood by Automated counon 06-01-2024 WBC corrected for nucl RBC Auto (Bld) [#/Vol] 9.0 10 3/uL 4.0-11.0 [facility] Lymphocytes Auto (Bld) [#/Vo l]on 06-01-2024 Lymphocytes (Bld) [#/Vol] 1.4 10 3/uL 1.2-3.8 [facility] Lymphocytes/100 WBC Auto (Bl d)on 06-01-2024 Lymphocytes/100 WBC (Bld) 15.9 % Low 20.5-60.0 [facility] MCH Auto (RBC) [Entitic mass ]on 06-01-2024 MCH (RBC) [Entitic mass] 29.5 pg 26.7-34.0 [facility] MCHC Auto (RBC) [Mass/Vol]on 06-01-2024 MCHC (RBC) [Mass/Vol] 33.2 g/dL 29.9-35.2 [facility] MCV Auto (RBC) [Entitic vol] on 06-01-2024 MCV (RBC) [Entitic vol] 88.7 fL 81.0-99.0 [facility] Monocytes Auto (Bld) [#/Vol] on 06-01-2024 Monocytes (Bld) [#/Vol] 0.8 10 3/uL 0.3-0.8 [facility] Monocytes/100 WBC Auto (Bld) on 06-01-2024 Monocytes/100 WBC (Bld) 8.5 % 1.7-12.0 [facility] Neutrophils Auto (Bld) [#/Vo l]on 06-01-2024 Neutrophils (Bld) [#/Vol] 6.6 10 3/uL High 1.4-6.5 [facility] Neutrophils/100 WBC Auto (Bl d)on 06-01-2024 Neutrophils/100 WBC (Bld) 73.3 % 43.0-75.0 [facility] No Panel Informationon 06-01 Eosinophils # (Auto) 0.1 10 3/uL 0.0-0.7 [facility] Immature Granulocyte # (Auto) 0.02 10 3/uL 0.00-0.03 [facility] 2.7 g/dL Low 3.4-5.0 [facility] 0.1 10 3/uL 0.0-0.7 [facility] 87 U/L 46-116 [facility] 18 U/L 14-59 [facility] 16 U/L 15-37 [facility] 20.5 [facility] 0.02 10 3/uL 0.00-0.03 [facility] 23.0 mg/dL High 7.0-18.0 [facility] 0.2 % 0.0-0.5 [facility] 8.7 mg/dL 8.5-10.1 [facility] 101 mmol/L 98-107 [facility] 28.9 mmol/L 21.0-32.0 [facility] 1.12 mg/dL High 0.55-1.02 [facility] 57 Low >=60 [facility] 232 mg/dL High 74-106 [facility] 4.1 mmol/L 3.5-5.1 [facility] 137 mmol/L 136-145 [facility] 0.5 mg/dL 0.2-1.0 [facility] 7.1 g/dL 6.4-8.2 [facility] Platelet mean volume Auto (B ld) [Entitic vol]on 06-01-2024 Platelet mean volume (Bld) [Entitic vol] 11.1 fL 9.5-13.5 [facility] Platelets Auto (Bld) [#/Vol] on 06-01-2024 Platelets (Bld) [#/Vol] 162 10 3/uL 150-450 [facility] RBC Auto (Bld) [#/Vol]on RBC (Bld) [#/Vol] 4.24 10 6/uL 4.20-5.40 [facility] Serum or plasma albumin/glob ulin mass ratioon 06-01-2024 Albumin/Globulin [Mass ratio] 0.6 {ratio} [facility] Serum or plasma anion gap de terminationon 06-01-2024 Anion gap [Moles/Vol] 11.2 mmol/L [facility] Basophils Auto (Bld) [#/Vol] on 05-26-2024 Basophils (Bld) [#/Vol] 0.1 10 3/uL 0.0-0.1 [facility] Basophils/100 WBC Auto (Bld) on 05-26-2024 Basophils/100 WBC (Bld) 1.1 % 0.2-2.0 [facility] Eosinophils/100 WBC Auto (Bl d)on 05-26-2024 Eosinophils/100 WBC (Bld) 2.1 % 0.9-7.0 [facility] Erythrocyte distribution wid th Auto (RBC) [Ratio]on 05-26-2024 Erythrocyte distribution width (RBC) [Ratio] 14.0 % 11.0-15.0 [facility] Estimated glomerular filtrat ion rate (GFR) non- Americanon 05-26-2024 GFR/1.73 sq M.predicted among non-blacks MDRD (S/P/Bld) [Vol rate/Area] 40 mL/min/{1.73_m2} Low >=60 [facility] Globulin Calc (S) [Mass/Vol] on 05-26-2024 Globulin (S) [Mass/Vol] 4.4 g/dL [facility] Hematocrit Auto (Bld) [Volum e fraction]on 05-26-2024 Hematocrit (Bld) [Volume fraction] 35.9 % Low 36.0-48.0 [facility] Hemoglobin [Mass/volume] in Bloodon 05-26-2024 Hemoglobin (Bld) [Mass/Vol] 12.0 g/dL 12.0-16.0 [facility] Laboratory - Chemistry and C hemistry - challengeon 05-26-2024 Albumin [Mass/Vol] 2.7 g/dL Low 3.4-5.0 [facility] ALP [Catalytic activity/Vol] 88 U/L 46-116 [facility] ALT [Catalytic activity/Vol] 20 U/L 14-59 [facility] AST [Catalytic activity/Vol] 12 U/L Low 15-37 [facility] Bilirubin [Mass/Vol] 0.5 mg/dL 0.2-1.0 [facility] Calcium [Mass/Vol] 8.9 mg/dL 8.5-10.1 [facility] Chloride [Moles/Vol] 104 mmol/L 98-107 [facility] CO2 [Moles/Vol] 26.7 mmol/L 21.0-32.0 [facility] Creatinine [Mass/Vol] 1.29 mg/dL High 0.55-1.02 [facility] Free T4 [Mass/Vol] 1.19 ng/dL 0.76-1.46 [facility] GFR/1.73 sq M.predicted MDRD (S/P/Bld) [Vol rate/Area] 49 mL/min/{1.73_m2} Low >=60 [facility] Glucose [Mass/Vol] 233 mg/dL High 74-106 [facility] Natriuretic peptide B (Bld) [Mass/Vol] 2687.0 pg/mL High <=1800.0 [facility] Comment on above: RESULTS CALLED TO DR Miranda ALVAREZ IN ER BY Mira Edwards [phone] Potassium [Moles/Vol] 4.0 mmol/L 3.5-5.1 [facility] Protein [Mass/Vol] 7.1 g/dL 6.4-8.2 [facility] Sodium [Moles/Vol] 140 mmol/L 136-145 [facility] TSH Qn 4.487 m[IU]/L High 0.358-3.740 [facility] Urea nitrogen [Mass/Vol] 33.0 mg/dL High 7.0-18.0 [facility] Urea nitrogen/Creatinine [Mass ratio] 25.6 mg/mg [facility] Laboratory - Hematology and Cell countson 05-26-2024 Immature granulocytes/100 WBC (Bld) 0.1 % 0.0-0.5 [facility] Laboratory - Microbiology an d Antimicrobial susceptibilityon 05-26-2024 S. pyogenes Ag Ql (Unsp spec) Negative [facility] SARS-CoV-2 (COVID-19) RNA FERN+probe Ql (Unsp spec) Not detected NOT DETECTE [facility] Comment on above: THIS TEST IS NOT PEREZ ROVDED BY THE FDA. It has beenauthorized for use under an Emergency Use Authorization. SARS-CoV-2 (COVID-19) RNA FERN+probe Ql (Unsp spec) See comment NOT DETECTE [facility] Comment on above: COVID AG PERFORMED-- - 06/06/24 1120 ---SARS-CoV-2 FERN previously reported as: NOT DETECTEDTHIS TEST IS NOT APPROVDED BY THE FDA. It has beenauthorized for use under an Emergency Use Authorization. SARS-CoV-2 (COVID-19) RNA FERN+probe Ql (Unsp spec) Negative NEGATIVE [facility] Comment on above: This test has not [...] Auto (Bld) [#/Vol] 7.3 10 3/uL 4.0-11.0 [facility] Lymphocytes Auto (Bld) [#/Vo l]on 05-26-2024 Lymphocytes (Bld) [#/Vol] 1.3 10 3/uL 1.2-3.8 [facility] Lymphocytes/100 WBC Auto (Bl d)on 05-26-2024 Lymphocytes/100 WBC (Bld) 18.4 % Low 20.5-60.0 [facility] MCH Auto (RBC) [Entitic mass ]on 05-26-2024 MCH (RBC) [Entitic mass] 30.4 pg 26.7-34.0 [facility] MCHC Auto (RBC) [Mass/Vol]on 05-26-2024 MCHC (RBC) [Mass/Vol] 33.4 g/dL 29.9-35.2 [facility] MCV Auto (RBC) [Entitic vol] on 05-26-2024 MCV (RBC) [Entitic vol] 90.9 fL 81.0-99.0 [facility] Monocytes Auto (Bld) [#/Vol] on 05-26-2024 Monocytes (Bld) [#/Vol] 0.7 10 3/uL 0.3-0.8 [facility] Monocytes/100 WBC Auto (Bld) on 05-26-2024 Monocytes/100 WBC (Bld) 9.5 % 1.7-12.0 [facility] Neutrophils Auto (Bld) [#/Vo l]on 05-26-2024 Neutrophils (Bld) [#/Vol] 5.0 10 3/uL 1.4-6.5 [facility] Neutrophils/100 WBC Auto (Bl d)on 05-26-2024 Neutrophils/100 WBC (Bld) 68.8 % 43.0-75.0 [facility] No Panel Informationon 05-26 See comment NOT DETECTE [facility] Negative [facility] Eosinophils # (Auto) 0.2 10 3/uL 0.0-0.7 [facility] Immature Granulocyte # (Auto) 0.01 10 3/uL 0.00-0.03 [facility] Monoscreen Negative NEGATIVE [facility] Troponin I High Sensitivity 14.9 pg/mL 4.0-51.3 [facility] Comment on above: CUT-OFF POINTS HAVE BEEN [...] DIAGNOSTIC AND CLINICAL INFORMATION. 1.19 ng/dL 0.76-1.46 [facility] 2687.0 pg/mL High <=1800.0 [facility] 14.9 pg/mL 4.0-51.3 [facility] 4.487 u[iU]/mL High 0.358-3.740 [facility] Negative NEGATIVE [facility] 2.7 g/dL Low 3.4-5.0 [facility] 0.2 10 3/uL 0.0-0.7 [facility] 88 U/L 46-116 [facility] 20 U/L 14-59 [facility] 12 U/L Low 15-37 [facility] 25.6 [facility] 0.01 10 3/uL 0.00-0.03 [facility] 33.0 mg/dL High 7.0-18.0 [facility] 0.1 % 0.0-0.5 [facility] 8.9 mg/dL 8.5-10.1 [facility] 104 mmol/L 98-107 [facility] 26.7 mmol/L 21.0-32.0 [facility] 1.29 mg/dL High 0.55-1.02 [facility] 49 Low >=60 [facility] 233 mg/dL High 74-106 [facility] 4.0 mmol/L 3.5-5.1 [facility] 140 mmol/L 136-145 [facility] 0.5 mg/dL 0.2-1.0 [facility] 7.1 g/dL 6.4-8.2 [facility] Platelet mean volume Auto (B ld) [Entitic vol]on 05-26-2024 Platelet mean volume (Bld) [Entitic vol] 10.6 fL 9.5-13.5 [facility] Platelets Auto (Bld) [#/Vol] on 05-26-2024 Platelets (Bld) [#/Vol] 215 10 3/uL 150-450 [facility] RBC Auto (Bld) [#/Vol]on RBC (Bld) [#/Vol] 3.95 10 6/uL Low 4.20-5.40 [facility] Serum or plasma albumin/glob ulin mass ratioon 05-26-2024 Albumin/Globulin [Mass ratio] 0.6 {ratio} [facility] Serum or plasma anion gap de terminationon 05-26-2024 Anion gap [Moles/Vol] 13.3 mmol/L [facility] Estimated glomerular filtrat ion rate (GFR) non- Americanon 05-20-2024 GFR/1.73 sq M.predicted among non-blacks MDRD (S/P/Bld) [Vol rate/Area] 39 mL/min/{1.73_m2} Low >=60 [facility] Laboratory - Chemistry and C hemistry - challengeon 05-20-2024 Calcium [Mass/Vol] 8.8 mg/dL 8.5-10.1 [facility] Chloride [Moles/Vol] 103 mmol/L 98-107 [facility] CO2 [Moles/Vol] 24.3 mmol/L 21.0-32.0 [facility] Creatinine [Mass/Vol] 1.32 mg/dL High 0.55-1.02 [facility] GFR/1.73 sq M.predicted MDRD (S/P/Bld) [Vol rate/Area] 47 mL/min/{1.73_m2} Low >=60 [facility] Glucose [Mass/Vol] 243 mg/dL High 74-106 [facility] Potassium [Moles/Vol] 5.0 mmol/L 3.5-5.1 [facility] Sodium [Moles/Vol] 138 mmol/L 136-145 [facility] Urea nitrogen [Mass/Vol] 35.0 mg/dL High 7.0-18.0 [facility] Urea nitrogen/Creatinine [Mass ratio] 26.5 mg/mg [facility] No Panel Informationon 05-20 26.5 [facility] 35.0 mg/dL High 7.0-18.0 [facility] 8.8 mg/dL 8.5-10.1 [facility] 103 mmol/L 98-107 [facility] 24.3 mmol/L 21.0-32.0 [facility] 1.32 mg/dL High 0.55-1.02 [facility] 47 Low >=60 [facility] 243 mg/dL High 74-106 [facility] 5.0 mmol/L 3.5-5.1 [facility] 138 mmol/L 136-145 [facility] Serum or plasma anion gap de terminationon 05-20-2024 Anion gap [Moles/Vol] 15.7 mmol/L [facility] Basophils Auto (Bld) [#/Vol] on 05-06-2024 Basophils (Bld) [#/Vol] 0.1 10 3/uL 0.0-0.1 [facility] Basophils/100 WBC Auto (Bld) on 05-06-2024 Basophils/100 WBC (Bld) 0.9 % 0.2-2.0 [facility] Eosinophils/100 WBC Auto (Bl d)on 05-06-2024 Eosinophils/100 WBC (Bld) 2.7 % 0.9-7.0 [facility] Erythrocyte distribution wid th Auto (RBC) [Ratio]on 05-06-2024 Erythrocyte distribution width (RBC) [Ratio] 13.5 % 11.0-15.0 [facility] Estimated glomerular filtrat ion rate (GFR) non- Americanon 05-06-2024 GFR/1.73 sq M.predicted among non-blacks MDRD (S/P/Bld) [Vol rate/Area] 32 mL/min/{1.73_m2} Low >=60 [facility] Globulin Calc (S) [Mass/Vol] on 05-06-2024 Globulin (S) [Mass/Vol] 4.3 g/dL [facility] Hematocrit Auto (Bld) [Volum e fraction]on 05-06-2024 Hematocrit (Bld) [Volume fraction] 34.6 % Low 36.0-48.0 [facility] Hemoglobin [Mass/volume] in Bloodon 05-06-2024 Hemoglobin (Bld) [Mass/Vol] 11.1 g/dL Low 12.0-16.0 [facility] Laboratory - Chemistry and C hemistry - challengeon 05-06-2024 Albumin [Mass/Vol] 2.5 g/dL Low 3.4-5.0 [facility] ALP [Catalytic activity/Vol] 75 U/L 46-116 [facility] ALT [Catalytic activity/Vol] 16 U/L 14-59 [facility] AST [Catalytic activity/Vol] 11 U/L Low 15-37 [facility] Bilirubin [Mass/Vol] 0.4 mg/dL 0.2-1.0 [facility] Calcium [Mass/Vol] 8.4 mg/dL Low 8.5-10.1 [facility] Chloride [Moles/Vol] 107 mmol/L 98-107 [facility] CO2 [Moles/Vol] 25.7 mmol/L 21.0-32.0 [facility] Creatinine [Mass/Vol] 1.58 mg/dL High 0.55-1.02 [facility] GFR/1.73 sq M.predicted MDRD (S/P/Bld) [Vol rate/Area] 38 mL/min/{1.73_m2} Low >=60 [facility] Glucose [Mass/Vol] 146 mg/dL High 74-106 [facility] Magnesium [Mass/Vol] 1.6 mg/dL Low 1.8-2.4 [facility] Natriuretic peptide B (Bld) [Mass/Vol] 2762.0 pg/mL High <=1800.0 [facility] Comment on above: RESULTS CALLED TO CLARITZA SELLERS RN @BY Alla Venegas at 0557 Potassium [Moles/Vol] 4.1 mmol/L 3.5-5.1 [facility] Protein [Mass/Vol] 6.8 g/dL 6.4-8.2 [facility] Sodium [Moles/Vol] 141 mmol/L 136-145 [facility] Urea nitrogen [Mass/Vol] 49.0 mg/dL High 7.0-18.0 [facility] Urea nitrogen/Creatinine [Mass ratio] 31.0 mg/mg [facility] Laboratory - Hematology and Cell countson 05-06-2024 Immature granulocytes/100 WBC (Bld) 0.1 % 0.0-0.5 [facility] Leukocytes [#/volume] correc gali for nucleated erythrocytes in Blood by Automated counon 05-06-2024 WBC corrected for nucl RBC Auto (Bld) [#/Vol] 6.7 10 3/uL 4.0-11.0 [facility] Lymphocytes Auto (Bld) [#/Vo l]on 05-06-2024 Lymphocytes (Bld) [#/Vol] 1.5 10 3/uL 1.2-3.8 [facility] Lymphocytes/100 WBC Auto (Bl d)on 05-06-2024 Lymphocytes/100 WBC (Bld) 21.8 % 20.5-60.0 [facility] MCH Auto (RBC) [Entitic mass ]on 05-06-2024 MCH (RBC) [Entitic mass] 29.0 pg 26.7-34.0 [facility] MCHC Auto (RBC) [Mass/Vol]on 05-06-2024 MCHC (RBC) [Mass/Vol] 32.1 g/dL 29.9-35.2 [facility] MCV Auto (RBC) [Entitic vol] on 05-06-2024 MCV (RBC) [Entitic vol] 90.3 fL 81.0-99.0 [facility] Monocytes Auto (Bld) [#/Vol] on 05-06-2024 Monocytes (Bld) [#/Vol] 0.7 10 3/uL 0.3-0.8 [facility] Monocytes/100 WBC Auto (Bld) on 05-06-2024 Monocytes/100 WBC (Bld) 10.6 % 1.7-12.0 [facility] Neutrophils Auto (Bld) [#/Vo l]on 05-06-2024 Neutrophils (Bld) [#/Vol] 4.3 10 3/uL 1.4-6.5 [facility] Neutrophils/100 WBC Auto (Bl d)on 05-06-2024 Neutrophils/100 WBC (Bld) 63.9 % 43.0-75.0 [facility] No Panel Informationon 05-06 Eosinophils # (Auto) 0.2 10 3/uL 0.0-0.7 [facility] Immature Granulocyte # (Auto) 0.01 10 3/uL 0.00-0.03 [facility] Troponin I High Sensitivity 13.2 pg/mL 4.0-51.3 [facility] Comment on above: CUT-OFF POINTS HAVE BEEN [...] AND CLINICAL INFORMATION. 2762.0 pg/mL High <=1800.0 [facility] 13.2 pg/mL 4.0-51.3 [facility] 1.6 mg/dL Low 1.8-2.4 [facility] 2.5 g/dL Low 3.4-5.0 [facility] 0.2 10 3/uL 0.0-0.7 [facility] 75 U/L 46-116 [facility] 16 U/L 14-59 [facility] 11 U/L Low 15-37 [facility] 31.0 [facility] 0.01 10 3/uL 0.00-0.03 [facility] 49.0 mg/dL High 7.0-18.0 [facility] 0.1 % 0.0-0.5 [facility] 8.4 mg/dL Low 8.5-10.1 [facility] 107 mmol/L 98-107 [facility] 25.7 mmol/L 21.0-32.0 [facility] 1.58 mg/dL High 0.55-1.02 [facility] 38 Low >=60 [facility] 146 mg/dL High 74-106 [facility] 4.1 mmol/L 3.5-5.1 [facility] 141 mmol/L 136-145 [facility] 0.4 mg/dL 0.2-1.0 [facility] 6.8 g/dL 6.4-8.2 [facility] Platelet mean volume Auto (B ld) [Entitic vol]on 05-06-2024 Platelet mean volume (Bld) [Entitic vol] 11.3 fL 9.5-13.5 [facility] Platelets Auto (Bld) [#/Vol] on 05-06-2024 Platelets (Bld) [#/Vol] 146 10 3/uL Low 150-450 [facility] RBC Auto (Bld) [#/Vol]on RBC (Bld) [#/Vol] 3.83 10 6/uL Low 4.20-5.40 [facility] Serum or plasma albumin/glob ulin mass ratioon 05-06-2024 Albumin/Globulin [Mass ratio] 0.6 {ratio} [facility] Serum or plasma anion gap de terminationon 05-06-2024 Anion gap [Moles/Vol] 12.4 mmol/L [facility] Basophils Auto (Bld) [#/Vol] on 05-05-2024 Basophils (Bld) [#/Vol] 0.1 10 3/uL 0.0-0.1 [facility] Basophils/100 WBC Auto (Bld) on 05-05-2024 Basophils/100 WBC (Bld) 0.9 % 0.2-2.0 [facility] Eosinophils/100 WBC Auto (Bl d)on 05-05-2024 Eosinophils/100 WBC (Bld) 1.9 % 0.9-7.0 [facility] Erythrocyte distribution wid th Auto (RBC) [Ratio]on 05-05-2024 Erythrocyte distribution width (RBC) [Ratio] 13.4 % 11.0-15.0 [facility] Estimated glomerular filtrat ion rate (GFR) non- Americanon 05-05-2024 GFR/1.73 sq M.predicted among non-blacks MDRD (S/P/Bld) [Vol rate/Area] 29 mL/min/{1.73_m2} Low >=60 [facility] Globulin Calc (S) [Mass/Vol] on 05-05-2024 Globulin (S) [Mass/Vol] 4.4 g/dL [facility] Hematocrit Auto (Bld) [Volum e fraction]on 05-05-2024 Hematocrit (Bld) [Volume fraction] 33.8 % Low 36.0-48.0 [facility] Hemoglobin [Mass/volume] in Bloodon 05-05-2024 Hemoglobin (Bld) [Mass/Vol] 11.1 g/dL Low 12.0-16.0 [facility] Laboratory - Chemistry and C hemistry - challengeon 05-05-2024 Albumin [Mass/Vol] 2.6 g/dL Low 3.4-5.0 [facility] ALP [Catalytic activity/Vol] 74 U/L 46-116 [facility] ALT [Catalytic activity/Vol] 17 U/L 14-59 [facility] AST [Catalytic activity/Vol] 12 U/L Low 15-37 [facility] Bilirubin [Mass/Vol] 0.4 mg/dL 0.2-1.0 [facility] Calcium [Mass/Vol] 6.1 mg/dL Low 8.5-10.1 [facility] Chloride [Moles/Vol] 105 mmol/L 98-107 [facility] CO2 [Moles/Vol] 24.1 mmol/L 21.0-32.0 [facility] Creatinine [Mass/Vol] 1.71 mg/dL High 0.55-1.02 [facility] GFR/1.73 sq M.predicted MDRD (S/P/Bld) [Vol rate/Area] 35 mL/min/{1.73_m2} Low >=60 [facility] Glucose [Mass/Vol] 202 mg/dL High 74-106 [facility] Magnesium [Mass/Vol] 1.5 mg/dL Low 1.8-2.4 [facility] Natriuretic peptide B (Bld) [Mass/Vol] 2725.0 pg/mL High <=1800.0 [facility] Comment on above: RESULTS CALLED TO Frances Bryant ([email or web address] Franchesca HuynhSTAFFING MANAGER at 0547 Potassium [Moles/Vol] 5.9 mmol/L High 3.5-5.1 [facility] Protein [Mass/Vol] 7.0 g/dL 6.4-8.2 [facility] Sodium [Moles/Vol] 139 mmol/L 136-145 [facility] Urea nitrogen [Mass/Vol] 69.0 mg/dL High 7.0-18.0 [facility] Urea nitrogen/Creatinine [Mass ratio] 40.4 mg/mg [facility] Laboratory - Hematology and Cell countson 05-05-2024 Immature granulocytes/100 WBC (Bld) 0.3 % 0.0-0.5 [facility] Leukocytes [#/volume] correc gali for nucleated erythrocytes in Blood by Automated counon 05-05-2024 WBC corrected for nucl RBC Auto (Bld) [#/Vol] 6.9 10 3/uL 4.0-11.0 [facility] Lymphocytes Auto (Bld) [#/Vo l]on 05-05-2024 Lymphocytes (Bld) [#/Vol] 1.2 10 3/uL 1.2-3.8 [facility] Lymphocytes/100 WBC Auto (Bl d)on 05-05-2024 Lymphocytes/100 WBC (Bld) 18.0 % Low 20.5-60.0 [facility] MCH Auto (RBC) [Entitic mass ]on 05-05-2024 MCH (RBC) [Entitic mass] 29.3 pg 26.7-34.0 [facility] MCHC Auto (RBC) [Mass/Vol]on 05-05-2024 MCHC (RBC) [Mass/Vol] 32.8 g/dL 29.9-35.2 [facility] MCV Auto (RBC) [Entitic vol] on 05-05-2024 MCV (RBC) [Entitic vol] 89.2 fL 81.0-99.0 [facility] Monocytes Auto (Bld) [#/Vol] on 05-05-2024 Monocytes (Bld) [#/Vol] 0.6 10 3/uL 0.3-0.8 [facility] Monocytes/100 WBC Auto (Bld) on 05-05-2024 Monocytes/100 WBC (Bld) 8.7 % 1.7-12.0 [facility] Neutrophils Auto (Bld) [#/Vo l]on 05-05-2024 Neutrophils (Bld) [#/Vol] 4.8 10 3/uL 1.4-6.5 [facility] Neutrophils/100 WBC Auto (Bl d)on 05-05-2024 Neutrophils/100 WBC (Bld) 70.2 % 43.0-75.0 [facility] No Panel Informationon 05-05 Eosinophils # (Auto) 0.1 10 3/uL 0.0-0.7 [facility] Immature Granulocyte # (Auto) 0.02 10 3/uL 0.00-0.03 [facility] Troponin I High Sensitivity 14.0 pg/mL 4.0-51.3 [facility] Comment on above: CUT-OFF POINTS HAVE BEEN [...] AND CLINICAL INFORMATION. 2725.0 pg/mL High <=1800.0 [facility] 14.0 pg/mL 4.0-51.3 [facility] 1.5 mg/dL Low 1.8-2.4 [facility] 2.6 g/dL Low 3.4-5.0 [facility] 0.1 10 3/uL 0.0-0.7 [facility] 74 U/L 46-116 [facility] 17 U/L 14-59 [facility] 12 U/L Low 15-37 [facility] 40.4 [facility] 0.02 10 3/uL 0.00-0.03 [facility] 69.0 mg/dL High 7.0-18.0 [facility] 0.3 % 0.0-0.5 [facility] 6.1 mg/dL Low 8.5-10.1 [facility] 105 mmol/L 98-107 [facility] 24.1 mmol/L 21.0-32.0 [facility] 1.71 mg/dL High 0.55-1.02 [facility] 35 Low >=60 [facility] 202 mg/dL High 74-106 [facility] 5.9 mmol/L High 3.5-5.1 [facility] 139 mmol/L 136-145 [facility] 0.4 mg/dL 0.2-1.0 [facility] 7.0 g/dL 6.4-8.2 [facility] Platelet mean volume Auto (B ld) [Entitic vol]on 05-05-2024 Platelet mean volume (Bld) [Entitic vol] 11.8 fL 9.5-13.5 [facility] Platelets Auto (Bld) [#/Vol] on 05-05-2024 Platelets (Bld) [#/Vol] 173 10 3/uL 150-450 [facility] RBC Auto (Bld) [#/Vol]on RBC (Bld) [#/Vol] 3.79 10 6/uL Low 4.20-5.40 [facility] Serum or plasma albumin/glob ulin mass ratioon 05-05-2024 Albumin/Globulin [Mass ratio] 0.6 {ratio} [facility] Serum or plasma anion gap de terminationon 05-05-2024 Anion gap [Moles/Vol] 15.8 mmol/L Fi [facility] Basophils Auto (Bld) [#/Vol] on 05-04-2024 Basophils (Bld) [#/Vol] 0.1 10 3/uL 0.0-0.1 [facility] Basophils/100 WBC Auto (Bld) on 05-04-2024 Basophils/100 WBC (Bld) 0.9 % 0.2-2.0 [facility] Eosinophils/100 WBC Auto (Bl d)on 05-04-2024 Eosinophils/100 WBC (Bld) 1.7 % 0.9-7.0 [facility] Erythrocyte distribution wid th Auto (RBC) [Ratio]on 05-04-2024 Erythrocyte distribution width (RBC) [Ratio] 13.6 % 11.0-15.0 [facility] Estimated glomerular filtrat ion rate (GFR) non- Americanon 05-04-2024 GFR/1.73 sq M.predicted among non-blacks MDRD (S/P/Bld) [Vol rate/Area] 21 mL/min/{1.73_m2} Low >=60 [facility] Globulin Calc (S) [Mass/Vol] on 05-04-2024 Globulin (S) [Mass/Vol] 4.9 g/dL [facility] Hematocrit Auto (Bld) [Volum e fraction]on 05-04-2024 Hematocrit (Bld) [Volume fraction] 37.6 % 36.0-48.0 [facility] Hemoglobin [Mass/volume] in Bloodon 05-04-2024 Hemoglobin (Bld) [Mass/Vol] 12.0 g/dL 12.0-16.0 [facility] Laboratory - Chemistry and C hemistry - challengeon 05-04-2024 Bilirubin Ql (U) Negative NEGATIVE [facility] Glucose (U) [Mass/Vol] 250 mg/dL Abnormal NEGATIVE Fi [facility] Ketones Ql (U) Negative NEGATIVE [facility] pH (U) 6.0 [pH] 5.0-9.0 [facility] Specific gravity (U) [Rel density] 1.015 1.005-1.025 [facility] Urobilinogen Qn (U) 0.2 {Meka'U}/dL 0.2-1.0 [facility] Albumin [Mass/Vol] 2.8 g/dL Low 3.4-5.0 [facility] ALP [Catalytic activity/Vol] 86 U/L 46-116 [facility] ALT [Catalytic activity/Vol] 16 U/L 14-59 [facility] Ammonia (P) [Moles/Vol] 12 umol/L 11-32 [facility] AST [Catalytic activity/Vol] 8 U/L Low 15-37 [facility] Bilirubin [Mass/Vol] 0.4 mg/dL 0.2-1.0 [facility] Calcium [Mass/Vol] 8.8 mg/dL 8.5-10.1 [facility] Chloride [Moles/Vol] 101 mmol/L 98-107 [facility] CO2 [Moles/Vol] 22.4 mmol/L 21.0-32.0 [facility] Creatinine [Mass/Vol] 2.24 mg/dL High 0.55-1.02 [facility] GFR/1.73 sq M.predicted MDRD (S/P/Bld) [Vol rate/Area] 26 mL/min/{1.73_m2} Low >=60 [facility] Glucose [Mass/Vol] 369 mg/dL High 74-106 [facility] Lactate [Moles/Vol] 1.2 mmol/L 0.4-2.0 [facility] Magnesium [Mass/Vol] 1.7 mg/dL Low 1.8-2.4 [facility] Natriuretic peptide B (Bld) [Mass/Vol] 2342.0 pg/mL High <=1800.0 [facility] Comment on above: RESULTS CALLED TO RENETTA Renteria,RN @BY Andrea Long, MLTat 1126 Potassium [Moles/Vol] 5.6 mmol/L High 3.5-5.1 [facility] Protein [Mass/Vol] 7.7 g/dL 6.4-8.2 [facility] Sodium [Moles/Vol] 134 mmol/L Low 136-145 [facility] T4 [Mass/Vol] 11.80 ug/dL 4.80-13.90 [facility] TSH Qn 0.933 m[IU]/L 0.358-3.740 [facility] Urea nitrogen [Mass/Vol] 86.0 mg/dL High 7.0-18.0 [facility] Comment on above: RESULTS CALLED TO ER Rebecca Renteria,RN @BY Andrea Long, MLTat 1126 Urea nitrogen/Creatinine [Mass ratio] 38.4 mg/mg [facility] Laboratory - Hematology and Cell countson 05-04-2024 Immature granulocytes/100 WBC (Bld) 0.3 % 0.0-0.5 [facility] Laboratory - Microbiology an d Antimicrobial susceptibilityOrdered By: Carl Morales on 05-04-2024 Bacteria identified Cx Nom (U) [facility] Laboratory - Specimen inform ationon 05-04-2024 Appearance (U) SLIGHTLY CLOUDY Abnormal CLEAR [facility] Color (U) YELLOW YELLOW [facility] Laboratory - Urinalysison Hyaline casts LM Ql (Urine sed) RARE [facility] Leukocyte esterase Test strip Ql (U) Negative NEGATIVE [facility] Mucus Ql (Urine sed) NONE SEEN NONE SEEN [facility] Nitrite Ql (U) Negative NEGATIVE [facility] Protein Ql (U) 100 mg/dL Abnormal NEG/TRACE [facility] Leukocytes [#/volume] correc gali for nucleated erythrocytes in Blood by Automated counon 05-04-2024 WBC corrected for nucl RBC Auto (Bld) [#/Vol] 6.9 10 3/uL 4.0-11.0 [facility] Lymphocytes Auto (Bld) [#/Vo l]on 05-04-2024 Lymphocytes (Bld) [#/Vol] 1.2 10 3/uL 1.2-3.8 [facility] Lymphocytes/100 WBC Auto (Bl d)on 05-04-2024 Lymphocytes/100 WBC (Bld) 17.8 % Low 20.5-60.0 [facility] MCH Auto (RBC) [Entitic mass ]on 05-04-2024 MCH (RBC) [Entitic mass] 29.3 pg 26.7-34.0 [facility] MCHC Auto (RBC) [Mass/Vol]on 05-04-2024 MCHC (RBC) [Mass/Vol] 31.9 g/dL 29.9-35.2 [facility] MCV Auto (RBC) [Entitic vol] on 05-04-2024 MCV (RBC) [Entitic vol] 91.9 fL 81.0-99.0 [facility] Monocytes Auto (Bld) [#/Vol] on 05-04-2024 Monocytes (Bld) [#/Vol] 0.7 10 3/uL 0.3-0.8 [facility] Monocytes/100 WBC Auto (Bld) on 05-04-2024 Monocytes/100 WBC (Bld) 10.4 % 1.7-12.0 [facility] Neutrophils Auto (Bld) [#/Vo l]on 05-04-2024 Neutrophils (Bld) [#/Vol] 4.8 10 3/uL 1.4-6.5 [facility] Neutrophils/100 WBC Auto (Bl d)on 05-04-2024 Neutrophils/100 WBC (Bld) 68.9 % 43.0-75.0 [facility] No Panel Informationon 05-04 Acetone Level Negative NEGATIVE [facility] Negative NEGATIVE [facility] Urine Bacteria MODERATE #/HPF Abnormal NONE SEEN [facility] Urine Culture Reflexed ALREADY ORDERED [facility] Urine Microscopic Review YES [facility] Urine Occult Blood MODERATE Abnormal NEGATIVE [facility] Urine Other Casts SEEN #/LPF Abnormal NONE SEEN [facility] Urine Other Crystals None Seen #/HPF None Seen [facility] Urine RBC 2-5 #/HPF Abnormal 0-2 [facility] Urine Squamous Epithelial Cells FEW #/LPF Abnormal NONE/RARE [facility] Urine WBC 2-5 #/HPF Abnormal NONE SEEN [facility] ALREADY ORDERED [facility] YES [facility] SEEN #/LPF Abnormal NONE SEEN [facility] Negative NEGATIVE [facility] None Seen #/HPF None Seen [facility] MODERATE Abnormal NEGATIVE [facility] MODERATE #/HPF Abnormal NONE SEEN [facility] SLIGHTLY CLOUDY Abnormal CLEAR [facility] RARE [facility] YELLOW YELLOW [facility] NONE SEEN NONE SEEN [facility] 250 mg/dL Abnormal NEGATIVE [facility] 2-5 #/HPF Abnormal NONE SEEN [facility] FEW #/LPF Abnormal NONE/RARE [facility] 6.0 5.0-9.0 [facility] 100 mg/dL Abnormal NEG/TRACE [facility] 1.015 1.005-1.025 [facility] 0.2 EU/dL 0.2-1.0 [facility] Eosinophils # (Auto) 0.1 10 3/uL 0.0-0.7 [facility] Immature Granulocyte # (Auto) 0.02 10 3/uL 0.00-0.03 [facility] Troponin I High Sensitivity 10.5 pg/mL 4.0-51.3 [facility] Comment on above: CUT-OFF POINTS HAVE BEEN [...] Partial Pressure CO2 38.5 mm[Hg] Low 40.0-52.0 [facility] Venous Blood pH 7.353 7.330-7.430 [facility] 0.933 u[iU]/mL 0.358-3.740 [facility] 11.80 ug/dL 4.80-13.90 [facility] 1.7 mg/dL Low 1.8-2.4 [facility] 2342.0 pg/mL High <=1800.0 [facility] 1.2 mmol/L 0.4-2.0 [facility] 10.5 pg/mL 4.0-51.3 [facility] 12 umol/L 11-32 [facility] 38.5 mm[Hg] Low 40.0-52.0 [facility] 7.353 7.330-7.430 [facility] 2.8 g/dL Low 3.4-5.0 [facility] 0.1 10 3/uL 0.0-0.7 [facility] 86 U/L 46-116 [facility] 16 U/L 14-59 [facility] 8 U/L Low 15-37 [facility] 38.4 [facility] 0.02 10 3/uL 0.00-0.03 [facility] 86.0 mg/dL High 7.0-18.0 [facility] 0.3 % 0.0-0.5 [facility] 8.8 mg/dL 8.5-10.1 [facility] 101 mmol/L 98-107 [facility] 22.4 mmol/L 21.0-32.0 [facility] 2.24 mg/dL High 0.55-1.02 [facility] 26 Low >=60 [facility] 369 mg/dL High 74-106 [facility] 5.6 mmol/L High 3.5-5.1 [facility] 134 mmol/L Low 136-145 [facility] 0.4 mg/dL 0.2-1.0 [facility] 7.7 g/dL 6.4-8.2 [facility] No Panel InformationOrdered By: LAMINE SINGH on 05-04-2024 Blood Culture 1 [facility] Platelet mean volume Auto (B ld) [Entitic vol]on 05-04-2024 Platelet mean volume (Bld) [Entitic vol] 11.4 fL 9.5-13.5 [facility] Platelets Auto (Bld) [#/Vol] on 05-04-2024 Platelets (Bld) [#/Vol] 160 10 3/uL 150-450 [facility] RBC Auto (Bld) [#/Vol]on RBC (Bld) [#/Vol] 4.09 10 6/uL Low 4.20-5.40 [facility] Serum or plasma albumin/glob ulin mass ratioon 05-04-2024 Albumin/Globulin [Mass ratio] 0.6 {ratio} [facility] Serum or plasma anion gap de terminationon 05-04-2024 Anion gap [Moles/Vol] [facility]2 [facility] Bas[facility] Auto (Bld) [#/Vol] on 05-01-2024 Basophils (Bld) [#/Vol] 0.1 10 3/uL 0.0-0.1 [facility] Basophils/100 WBC Auto (Bld) on 05-01-2024 Basophils/100 WBC (Bld) 0.7 % 0.2-2.0 [facility] Eosinophils/100 WBC Auto (Bl d)on 05-01-2024 Eosinophils/100 WBC (Bld) 2.3 % 0.9-7.0 [facility] Erythrocyte distribution wid th Auto (RBC) [Ratio]on 05-01-2024 Erythrocyte distribution width (RBC) [Ratio] 13.6 % 11.0-15.0 [facility] Estimated glomerular filtrat ion rate (GFR) non- Americanon 05-01-2024 GFR/1.73 sq M.predicted among non-blacks MDRD (S/P/Bld) [Vol rate/Area] 22 mL/min/{1.73_m2} Low >=60 [facility] Globulin Calc (S) [Mass/Vol] on 05-01-2024 Globulin (S) [Mass/Vol] 4.4 g/dL [facility] Hematocrit Auto (Bld) [Volum e fraction]on 05-01-2024 Hematocrit (Bld) [Volume fraction] 37.5 % 36.0-48.0 [facility] Hemoglobin [Mass/volume] in Bloodon 05-01-2024 Hemoglobin (Bld) [Mass/Vol] 12.1 g/dL 12.0-16.0 [facility] Laboratory - Chemistry and C hemistry - challengeon 05-01-2024 Calcium [Mass/Vol] 9.2 mg/dL 8.5-10.1 [facility] Chloride [Moles/Vol] 104 mmol/L 98-107 [facility] CO2 [Moles/Vol] 23.2 mmol/L 21.0-32.0 [facility] Creatinine [Mass/Vol] 2.14 mg/dL High 0.55-1.02 [facility] GFR/1.73 sq M.predicted MDRD (S/P/Bld) [Vol rate/Area] 27 mL/min/{1.73_m2} Low >=60 [facility] Glucose [Mass/Vol] 220 mg/dL High 74-106 [facility] Potassium [Moles/Vol] 5.3 mmol/L High 3.5-5.1 [facility] Sodium [Moles/Vol] 134 mmol/L Low 136-145 [facility] Urea nitrogen [Mass/Vol] 87.0 mg/dL High 7.0-18.0 [facility] Comment on above: RESULTS CALLED TO Klaus Michaels RN @BY Sury French [id number] Urea nitrogen/Creatinine [Mass ratio] 40.7 mg/mg [facility] Albumin [Mass/Vol] 2.8 g/dL Low 3.4-5.0 [facility] ALP [Catalytic activity/Vol] 80 U/L 46-116 [facility] ALT [Catalytic activity/Vol] 16 U/L 14-59 [facility] AST [Catalytic activity/Vol] 11 U/L Low 15-37 [facility] Bilirubin [Mass/Vol] 0.4 mg/dL 0.2-1.0 [facility] Natriuretic peptide B (Bld) [Mass/Vol] 1624.0 pg/mL <=1800.0 [facility] Protein [Mass/Vol] 7.2 g/dL 6.4-8.2 [facility] Laboratory - Hematology and Cell countson 05-01-2024 Immature granulocytes/100 WBC (Bld) 0.1 % 0.0-0.5 [facility] Leukocytes [#/volume] correc gali for nucleated erythrocytes in Blood by Automated counon 05-01-2024 WBC corrected for nucl RBC Auto (Bld) [#/Vol] 7.4 10 3/uL 4.0-11.0 [facility] Lymphocytes Auto (Bld) [#/Vo l]on 05-01-2024 Lymphocytes (Bld) [#/Vol] 2.2 10 3/uL 1.2-3.8 [facility] Lymphocytes/100 WBC Auto (Bl d)on 05-01-2024 Lymphocytes/100 WBC (Bld) 29.4 % 20.5-60.0 [facility] MCH Auto (RBC) [Entitic mass ]on 05-01-2024 MCH (RBC) [Entitic mass] 29.2 pg 26.7-34.0 [facility] MCHC Auto (RBC) [Mass/Vol]on 05-01-2024 MCHC (RBC) [Mass/Vol] 32.3 g/dL 29.9-35.2 [facility] MCV Auto (RBC) [Entitic vol] on 05-01-2024 MCV (RBC) [Entitic vol] 90.4 fL 81.0-99.0 [facility] Monocytes Auto (Bld) [#/Vol] on 05-01-2024 Monocytes (Bld) [#/Vol] 0.9 10 3/uL High 0.3-0.8 [facility] Monocytes/100 WBC Auto (Bld) on 05-01-2024 Monocytes/100 WBC (Bld) 11.5 % 1.7-12.0 [facility] Neutrophils Auto (Bld) [#/Vo l]on 05-01-2024 Neutrophils (Bld) [#/Vol] 4.1 10 3/uL 1.4-6.5 [facility] Neutrophils/100 WBC Auto (Bl d)on 05-01-2024 Neutrophils/100 WBC (Bld) 56.0 % 43.0-75.0 [facility] No Panel Informationon 05-01 40.7 [facility] 87.0 mg/dL High 7.0-18.0 [facility] 9.2 mg/dL 8.5-10.1 [facility] 104 mmol/L 98-107 [facility] 23.2 mmol/L 21.0-32.0 [facility] 2.14 mg/dL High 0.55-1.02 [facility] 27 Low >=60 [facility] 220 mg/dL High 74-106 [facility] 5.3 mmol/L High 3.5-5.1 [facility] 134 mmol/L Low 136-145 [facility] Eosinophils # (Auto) 0.2 10 3/uL 0.0-0.7 [facility] Immature Granulocyte # (Auto) 0.01 10 3/uL 0.00-0.03 [facility] 1624.0 pg/mL <=1800.0 [facility] 2.8 g/dL Low 3.4-5.0 [facility] 0.2 10 3/uL 0.0-0.7 [facility] 80 U/L 46-116 [facility] 16 U/L 14-59 [facility] 11 U/L Low 15-37 [facility] 0.01 10 3/uL 0.00-0.03 [facility] 0.1 % 0.0-0.5 [facility] 0.4 mg/dL 0.2-1.0 [facility] 7.2 g/dL 6.4-8.2 [facility] Platelet mean volume Auto (B ld) [Entitic vol]on 05-01-2024 Platelet mean volume (Bld) [Entitic vol] 11.6 fL 9.5-13.5 [facility] Platelets Auto (Bld) [#/Vol] on 05-01-2024 Platelets (Bld) [#/Vol] 151 10 3/uL 150-450 [facility] RBC Auto (Bld) [#/Vol]on RBC (Bld) [#/Vol] 4.15 10 6/uL Low 4.20-5.40 [facility] Serum or plasma albumin/glob ulin mass ratioon 05-01-2024 Albumin/Globulin [Mass ratio] 0.6 {ratio} [facility] Serum or plasma anion gap de terminationon 05-01-2024 Anion gap [Moles/Vol] [facility]1 [facility] Basophils Auto (Bld) [#/Vol] on 04-30-2024 Basophils (Bld) [#/Vol] 0.1 10 3/uL 0.0-0.1 [facility] Basophils/100 WBC Auto (Bld) on 04-30-2024 Basophils/100 WBC (Bld) 0.9 % 0.2-2.0 [facility] Eosinophils/100 WBC Auto (Bl d)on 04-30-2024 Eosinophils/100 WBC (Bld) 2.4 % 0.9-7.0 [facility] Erythrocyte distribution wid th Auto (RBC) [Ratio]on 04-30-2024 Erythrocyte distribution width (RBC) [Ratio] 13.5 % 11.0-15.0 [facility] Estimated glomerular filtrat ion rate (GFR) non- Americanon 04-30-2024 GFR/1.73 sq M.predicted among non-blacks MDRD (S/P/Bld) [Vol rate/Area] 15 mL/min/{1.73_m2} Low >=60 [facility] Fibrin D-dimer [Presence] in Platelet poor plasma by Latex agglutinationon 04-30-2024 Fibrin D-dimer LA Ql (PPP) 0.24 mg/L FEU <=0.59 [facility] Comment on above: Increases in D-Dimer concentration [...] Hematocrit (Bld) [Volume fraction] 38.6 % 36.0-48.0 [facility] Hemoglobin [Mass/volume] in Bloodon 04-30-2024 Hemoglobin (Bld) [Mass/Vol] 12.5 g/dL 12.0-16.0 [facility] Laboratory - Chemistry and C hemistry - challengeon 04-30-2024 Calcium [Mass/Vol] 9.0 mg/dL 8.5-10.1 [facility] Chloride [Moles/Vol] 100 mmol/L 98-107 [facility] CO2 [Moles/Vol] 24.4 mmol/L 21.0-32.0 [facility] Creatinine [Mass/Vol] 3.02 mg/dL High 0.55-1.02 [facility] GFR/1.73 sq M.predicted MDRD (S/P/Bld) [Vol rate/Area] 18 mL/min/{1.73_m2} Low >=60 [facility] Glucose [Mass/Vol] 271 mg/dL High 74-106 [facility] Magnesium [Mass/Vol] 1.8 mg/dL 1.8-2.4 [facility] Natriuretic peptide B (Bld) [Mass/Vol] 1485.0 pg/mL <=1800.0 [facility] Potassium [Moles/Vol] 5.3 mmol/L High 3.5-5.1 [facility] Sodium [Moles/Vol] 133 mmol/L Low 136-145 [facility] Urea nitrogen [Mass/Vol] 99.0 mg/dL High 7.0-18.0 [facility] Comment on above: RESULTS CALLED TO Yoel Robin (RN)@BY Franchesca Huynh MLT at 0603 Urea nitrogen/Creatinine [Mass ratio] 32.8 mg/mg [facility] Laboratory - Hematology and Cell countson 04-30-2024 Immature granulocytes/100 WBC (Bld) 0.1 % 0.0-0.5 [facility] Leukocytes [#/volume] correc gali for nucleated erythrocytes in Blood by Automated counon 04-30-2024 WBC corrected for nucl RBC Auto (Bld) [#/Vol] 7.5 10 3/uL 4.0-11.0 [facility] Lymphocytes Auto (Bld) [#/Vo l]on 04-30-2024 Lymphocytes (Bld) [#/Vol] 2.1 10 3/uL 1.2-3.8 [facility] Lymphocytes/100 WBC Auto (Bl d)on 04-30-2024 Lymphocytes/100 WBC (Bld) 27.8 % 20.5-60.0 [facility] MCH Auto (RBC) [Entitic mass ]on 04-30-2024 MCH (RBC) [Entitic mass] 29.6 pg 26.7-34.0 [facility] MCHC Auto (RBC) [Mass/Vol]on 04-30-2024 MCHC (RBC) [Mass/Vol] 32.4 g/dL 29.9-35.2 [facility] MCV Auto (RBC) [Entitic vol] on 04-30-2024 MCV (RBC) [Entitic vol] 91.5 fL 81.0-99.0 [facility] Monocytes Auto (Bld) [#/Vol] on 04-30-2024 Monocytes (Bld) [#/Vol] 0.8 10 3/uL 0.3-0.8 [facility] Monocytes/100 WBC Auto (Bld) on 04-30-2024 Monocytes/100 WBC (Bld) 10.0 % 1.7-12.0 [facility] Neutrophils Auto (Bld) [#/Vo l]on 04-30-2024 Neutrophils (Bld) [#/Vol] 4.4 10 3/uL 1.4-6.5 [facility] Neutrophils/100 WBC Auto (Bl d)on 04-30-2024 Neutrophils/100 WBC (Bld) 58.8 % 43.0-75.0 [facility] No Panel Informationon 04-30 Troponin I High Sensitivity 12.6 pg/mL 4.0-51.3 [facility] Comment on above: CUT-OFF POINTS HAVE BEEN [...] DIAGNOSTIC AND CLINICAL INFORMATION. 1.8 mg/dL 1.8-2.4 [facility] 1485.0 pg/mL <=1800.0 [facility] 12.6 pg/mL 4.0-51.3 [facility] 32.8 [facility] 99.0 mg/dL High 7.0-18.0 [facility] 9.0 mg/dL 8.5-10.1 [facility] 100 mmol/L 98-107 [facility] 24.4 mmol/L 21.0-32.0 [facility] 3.02 mg/dL High 0.55-1.02 [facility] 18 Low >=60 [facility] 271 mg/dL High 74-106 [facility] 5.3 mmol/L High 3.5-5.1 [facility] 133 mmol/L Low 136-145 [facility] Eosinophils # (Auto) 0.2 10 3/uL 0.0-0.7 [facility] Immature Granulocyte # (Auto) 0.01 10 3/uL 0.00-0.03 [facility] 0.2 10 3/uL 0.0-0.7 [facility] 0.01 10 3/uL 0.00-0.03 [facility] 0.1 % 0.0-0.5 [facility] Platelet mean volume Auto (B ld) [Entitic vol]on 04-30-2024 Platelet mean volume (Bld) [Entitic vol] 12.2 fL 9.5-13.5 [facility] Platelets Auto (Bld) [#/Vol] on 04-30-2024 Platelets (Bld) [#/Vol] 221 10 3/uL 150-450 [facility] RBC Auto (Bld) [#/Vol]on RBC (Bld) [#/Vol] 4.22 10 6/uL 4.20-5.40 [facility] Serum or plasma anion gap de terminationon 04-30-2024 Anion gap [Moles/Vol] 13.9 mmol/L [facility] Basophils Auto (Bld) [#/Vol] on 03-28-2024 Basophils (Bld) [#/Vol] 0.1 10 3/uL 0.0-0.1 [facility] Basophils/100 WBC Auto (Bld) on 03-28-2024 Basophils/100 WBC (Bld) 0.9 % 0.2-2.0 [facility] Eosinophils/100 WBC Auto (Bl d)on 03-28-2024 Eosinophils/100 WBC (Bld) 1.7 % 0.9-7.0 [facility] Erythrocyte distribution wid th Auto (RBC) [Ratio]on 03-28-2024 Erythrocyte distribution width (RBC) [Ratio] 14.2 % 11.0-15.0 [facility] Estimated glomerular filtrat ion rate (GFR) non- Americanon 03-28-2024 GFR/1.73 sq M.predicted among non-blacks MDRD (S/P/Bld) [Vol rate/Area] 39 mL/min/{1.73_m2} Low >=60 [facility] Globulin Calc (S) [Mass/Vol] on 03-28-2024 Globulin (S) [Mass/Vol] 4.8 g/dL [facility] Hematocrit Auto (Bld) [Volum e fraction]on 03-28-2024 Hematocrit (Bld) [Volume fraction] 40.0 % 36.0-48.0 [facility] Hemoglobin [Mass/volume] in Bloodon 03-28-2024 Hemoglobin (Bld) [Mass/Vol] 12.6 g/dL 12.0-16.0 [facility] Laboratory - Chemistry and C hemistry - challengeon 03-28-2024 Albumin [Mass/Vol] 2.5 g/dL Low 3.4-5.0 [facility] ALP [Catalytic activity/Vol] 93 U/L 46-116 [facility] ALT [Catalytic activity/Vol] 9 U/L Low 14-59 [facility] AST [Catalytic activity/Vol] 10 U/L Low 15-37 [facility] Bilirubin [Mass/Vol] 0.9 mg/dL 0.2-1.0 [facility] Calcium [Mass/Vol] 8.5 mg/dL 8.5-10.1 [facility] Chloride [Moles/Vol] 96 mmol/L Low 98-107 [facility] CO2 [Moles/Vol] 27.1 mmol/L 21.0-32.0 [facility] Creatinine [Mass/Vol] 1.33 mg/dL High 0.55-1.02 [facility] GFR/1.73 sq M.predicted MDRD (S/P/Bld) [Vol rate/Area] 47 mL/min/{1.73_m2} Low >=60 [facility] Glucose [Mass/Vol] 261 mg/dL High 74-106 [facility] Magnesium [Mass/Vol] 1.8 mg/dL 1.8-2.4 [facility] Natriuretic peptide B (Bld) [Mass/Vol] 3338.0 pg/mL High <=1800.0 [facility] Comment on above: RESULTS CALLED TO Claritza ButtsRN)@BY Franchesca Huynh MLT at 0554 Potassium [Moles/Vol] 3.8 mmol/L 3.5-5.1 [facility] Protein [Mass/Vol] 7.3 g/dL 6.4-8.2 [facility] Sodium [Moles/Vol] 133 mmol/L Low 136-145 [facility] Urea nitrogen [Mass/Vol] 36.0 mg/dL High 7.0-18.0 [facility] Urea nitrogen/Creatinine [Mass ratio] 27.1 mg/mg [facility] Laboratory - Hematology and Cell countson 03-28-2024 Immature granulocytes/100 WBC (Bld) 0.4 % 0.0-0.5 [facility] Leukocytes [#/volume] correc gali for nucleated erythrocytes in Blood by Automated counon 03-28-2024 WBC corrected for nucl RBC Auto (Bld) [#/Vol] 8.4 10 3/uL 4.0-11.0 [facility] Lymphocytes Auto (Bld) [#/Vo l]on 03-28-2024 Lymphocytes (Bld) [#/Vol] 1.8 10 3/uL 1.2-3.8 [facility] Lymphocytes/100 WBC Auto (Bl d)on 03-28-2024 Lymphocytes/100 WBC (Bld) 21.4 % 20.5-60.0 [facility] MCH Auto (RBC) [Entitic mass ]on 03-28-2024 MCH (RBC) [Entitic mass] 29.0 pg 26.7-34.0 [facility] MCHC Auto (RBC) [Mass/Vol]on 03-28-2024 MCHC (RBC) [Mass/Vol] 31.5 g/dL 29.9-35.2 [facility] MCV Auto (RBC) [Entitic vol] on 03-28-2024 MCV (RBC) [Entitic vol] 92.0 fL 81.0-99.0 [facility] Monocytes Auto (Bld) [#/Vol] on 03-28-2024 Monocytes (Bld) [#/Vol] 0.8 10 3/uL 0.3-0.8 [facility] Monocytes/100 WBC Auto (Bld) on 03-28-2024 Monocytes/100 WBC (Bld) 9.7 % 1.7-12.0 [facility] Neutrophils Auto (Bld) [#/Vo l]on 03-28-2024 Neutrophils (Bld) [#/Vol] 5.6 10 3/uL 1.4-6.5 [facility] Neutrophils/100 WBC Auto (Bl d)on 03-28-2024 Neutrophils/100 WBC (Bld) 65.9 % 43.0-75.0 [facility] No Panel Informationon 03-28 Eosinophils # (Auto) 0.1 10 3/uL 0.0-0.7 [facility] Immature Granulocyte # (Auto) 0.03 10 3/uL 0.00-0.03 [facility] 3338.0 pg/mL High <=1800.0 [facility] 1.8 mg/dL 1.8-2.4 [facility] 2.5 g/dL Low 3.4-5.0 [facility] 0.1 10 3/uL 0.0-0.7 [facility] 93 U/L 46-116 [facility] 9 U/L Low 14-59 [facility] 10 U/L Low 15-37 [facility] 27.1 [facility] 0.03 10 3/uL 0.00-0.03 [facility] 36.0 mg/dL High 7.0-18.0 [facility] 0.4 % 0.0-0.5 [facility] 8.5 mg/dL 8.5-10.1 [facility] 96 mmol/L Low 98-107 [facility] 27.1 mmol/L 21.0-32.0 [facility] 1.33 mg/dL High 0.55-1.02 [facility] 47 Low >=60 [facility] 261 mg/dL High 74-106 [facility] 3.8 mmol/L 3.5-5.1 [facility] 133 mmol/L Low 136-145 [facility] 0.9 mg/dL 0.2-1.0 [facility] 7.3 g/dL 6.4-8.2 [facility] Platelet mean volume Auto (B ld) [Entitic vol]on 03-28-2024 Platelet mean volume (Bld) [Entitic vol] 10.5 fL 9.5-13.5 [facility] Platelets Auto (Bld) [#/Vol] on 03-28-2024 Platelets (Bld) [#/Vol] 197 10 3/uL 150-450 [facility] RBC Auto (Bld) [#/Vol]on RBC (Bld) [#/Vol] 4.35 10 6/uL 4.20-5.40 [facility] Serum or plasma albumin/glob ulin mass ratioon 03-28-2024 Albumin/Globulin [Mass ratio] 0.5 {ratio} [facility] Serum or plasma anion gap de terminationon 03-28-2024 Anion gap [Moles/Vol] 13.7 mmol/L [facility] Basophils Auto (Bld) [#/Vol] on 03-27-2024 Basophils (Bld) [#/Vol] 0.1 10 3/uL 0.0-0.1 [facility] Basophils/100 WBC Auto (Bld) on 03-27-2024 Basophils/100 WBC (Bld) 0.8 % 0.2-2.0 [facility] Eosinophils/100 WBC Auto (Bl d)on 03-27-2024 Eosinophils/100 WBC (Bld) 1.1 % 0.9-7.0 [facility] Erythrocyte distribution wid th Auto (RBC) [Ratio]on 03-27-2024 Erythrocyte distribution width (RBC) [Ratio] 14.2 % 11.0-15.0 [facility] Estimated glomerular filtrat ion rate (GFR) non- Americanon 03-27-2024 GFR/1.73 sq M.predicted among non-blacks MDRD (S/P/Bld) [Vol rate/Area] 44 mL/min/{1.73_m2} Low >=60 [facility] Globulin Calc (S) [Mass/Vol] on 03-27-2024 Globulin (S) [Mass/Vol] 4.6 g/dL [facility] Glucose mean value [Mass/vol ume] in Blood Estimated from glycated hemoglobinon 03-27-2024 Average glucose Estimated from glycated hemoglobin (Bld) [Mass/Vol] 275 mg/dL [facility] Hematocrit Auto (Bld) [Volum e fraction]on 03-27-2024 Hematocrit (Bld) [Volume fraction] 37.4 % 36.0-48.0 [facility] Hemoglobin [Mass/volume] in Bloodon 03-27-2024 Hemoglobin (Bld) [Mass/Vol] 12.1 g/dL 12.0-16.0 [facility] Laboratory - Chemistry and C hemistry - challengeon 03-27-2024 Albumin [Mass/Vol] 2.6 g/dL Low 3.4-5.0 [facility] ALP [Catalytic activity/Vol] 89 U/L 46-116 [facility] ALT [Catalytic activity/Vol] 12 U/L Low 14-59 [facility] AST [Catalytic activity/Vol] 9 U/L Low 15-37 [facility] Bilirubin [Mass/Vol] 0.9 mg/dL 0.2-1.0 [facility] Calcium [Mass/Vol] 9.1 mg/dL 8.5-10.1 [facility] Chloride [Moles/Vol] 99 mmol/L 98-107 [facility] CO2 [Moles/Vol] 28.8 mmol/L 21.0-32.0 [facility] Creatinine [Mass/Vol] 1.19 mg/dL High 0.55-1.02 [facility] GFR/1.73 sq M.predicted MDRD (S/P/Bld) [Vol rate/Area] 53 mL/min/{1.73_m2} Low >=60 [facility] Glucose [Mass/Vol] 273 mg/dL High 74-106 [facility] Magnesium [Mass/Vol] 1.7 mg/dL Low 1.8-2.4 [facility] Natriuretic peptide B (Bld) [Mass/Vol] 4572.0 pg/mL High <=1800.0 [facility] Comment on above: RESULTS CALLED TO SA RA MIGUEL RN @BY Alla Kevin [id number] Potassium [Moles/Vol] 3.6 mmol/L 3.5-5.1 [facility] Protein [Mass/Vol] 7.2 g/dL 6.4-8.2 [facility] Sodium [Moles/Vol] 135 mmol/L Low 136-145 [facility] Urea nitrogen [Mass/Vol] 34.0 mg/dL High 7.0-18.0 [facility] Urea nitrogen/Creatinine [Mass ratio] 28.6 mg/mg [facility] Laboratory - Hematology and Cell countson 03-27-2024 HbA1c (Bld) [Mass fraction] 11.2 % High 4.5-6.2 [facility] Comment on above: ADA RECOMMENDED LIMI T 4.0 - 6.0ADA THERAPEUTIC TARGET < 7.0ACTION SUGGESTED> 7.0 Immature granulocytes/100 WBC (Bld) 0.3 % 0.0-0.5 [facility] Leukocytes [#/volume] correc gali for nucleated erythrocytes in Blood by Automated counon 03-27-2024 WBC corrected for nucl RBC Auto (Bld) [#/Vol] 9.7 10 3/uL 4.0-11.0 [facility] Lymphocytes Auto (Bld) [#/Vo l]on 03-27-2024 Lymphocytes (Bld) [#/Vol] 1.3 10 3/uL 1.2-3.8 [facility] Lymphocytes/100 WBC Auto (Bl d)on 03-27-2024 Lymphocytes/100 WBC (Bld) 13.3 % Low 20.5-60.0 [facility] MCH Auto (RBC) [Entitic mass ]on 03-27-2024 MCH (RBC) [Entitic mass] 29.2 pg 26.7-34.0 [facility] MCHC Auto (RBC) [Mass/Vol]on 03-27-2024 MCHC (RBC) [Mass/Vol] 32.4 g/dL 29.9-35.2 [facility] MCV Auto (RBC) [Entitic vol] on 03-27-2024 MCV (RBC) [Entitic vol] 90.3 fL 81.0-99.0 [facility] Monocytes Auto (Bld) [#/Vol] on 03-27-2024 Monocytes (Bld) [#/Vol] 0.8 10 3/uL 0.3-0.8 [facility] Monocytes/100 WBC Auto (Bld) on 03-27-2024 Monocytes/100 WBC (Bld) 8.4 % 1.7-12.0 [facility] Neutrophils Auto (Bld) [#/Vo l]on 03-27-2024 Neutrophils (Bld) [#/Vol] 7.4 10 3/uL High 1.4-6.5 [facility] Neutrophils/100 WBC Auto (Bl d)on 03-27-2024 Neutrophils/100 WBC (Bld) 76.1 % High 43.0-75.0 [facility] No Panel Informationon 03-27 Eosinophils # (Auto) 0.1 10 3/uL 0.0-0.7 [facility] Immature Granulocyte # (Auto) 0.03 10 3/uL 0.00-0.03 [facility] 4572.0 pg/mL High <=1800.0 [facility] 1.7 mg/dL Low 1.8-2.4 [facility] 11.2 % High 4.5-6.2 [facility] 2.6 g/dL Low 3.4-5.0 [facility] 0.1 10 3/uL 0.0-0.7 [facility] 89 U/L 46-116 [facility] 12 U/L Low 14-59 [facility] 9 U/L Low 15-37 [facility] 28.6 [facility] 0.03 10 3/uL 0.00-0.03 [facility] 34.0 mg/dL High 7.0-18.0 [facility] 0.3 % 0.0-0.5 [facility] 9.1 mg/dL 8.5-10.1 [facility] 99 mmol/L 98-107 [facility] 28.8 mmol/L 21.0-32.0 [facility] 1.19 mg/dL High 0.55-1.02 [facility] 53 Low >=60 [facility] 273 mg/dL High 74-106 [facility] 3.6 mmol/L 3.5-5.1 [facility] 135 mmol/L Low 136-145 [facility] 0.9 mg/dL 0.2-1.0 [facility] 7.2 g/dL 6.4-8.2 [facility] Platelet mean volume Auto (B ld) [Entitic vol]on 03-27-2024 Platelet mean volume (Bld) [Entitic vol] 10.6 fL 9.5-13.5 [facility] Platelets Auto (Bld) [#/Vol] on 03-27-2024 Platelets (Bld) [#/Vol] 204 10 3/uL 150-450 [facility] RBC Auto (Bld) [#/Vol]on RBC (Bld) [#/Vol] 4.14 10 6/uL Low 4.20-5.40 [facility] Serum or plasma albumin/glob ulin mass ratioon 03-27-2024 Albumin/Globulin [Mass ratio] 0.6 {ratio} [facility] Serum or plasma anion gap de terminationon 03-27-2024 Anion gap [Moles/Vol] 10.8 mmol/L [facility] Basophils Auto (Bld) [#/Vol] on 03-26-2024 Basophils (Bld) [#/Vol] 0.1 10 3/uL 0.0-0.1 [facility] Basophils/100 WBC Auto (Bld) on 03-26-2024 Basophils/100 WBC (Bld) 0.8 % 0.2-2.0 [facility] Eosinophils/100 WBC Auto (Bl d)on 03-26-2024 Eosinophils/100 WBC (Bld) 1.2 % 0.9-7.0 [facility] Erythrocyte distribution wid th Auto (RBC) [Ratio]on 03-26-2024 Erythrocyte distribution width (RBC) [Ratio] 14.5 % 11.0-15.0 [facility] Estimated glomerular filtrat ion rate (GFR) non- Americanon 03-26-2024 GFR/1.73 sq M.predicted among non-blacks MDRD (S/P/Bld) [Vol rate/Area] 46 mL/min/{1.73_m2} Low >=60 [facility] Glucose mean value [Mass/vol ume] in Blood Estimated from glycated hemoglobinon 03-26-2024 Average glucose Estimated from glycated hemoglobin (Bld) [Mass/Vol] 275 mg/dL [facility] Hematocrit Auto (Bld) [Volum e fraction]on 03-26-2024 Hematocrit (Bld) [Volume fraction] 40.1 % 36.0-48.0 [facility] Hemoglobin [Mass/volume] in Bloodon 03-26-2024 Hemoglobin (Bld) [Mass/Vol] 12.7 g/dL 12.0-16.0 [facility] Laboratory - Chemistry and C hemistry - challengeon 03-26-2024 Calcium [Mass/Vol] 9.1 mg/dL 8.5-10.1 [facility] Chloride [Moles/Vol] 102 mmol/L 98-107 [facility] CO2 [Moles/Vol] 28.5 mmol/L 21.0-32.0 [facility] Creatinine [Mass/Vol] 1.14 mg/dL High 0.55-1.02 [facility] Free T4 [Mass/Vol] 1.29 ng/dL 0.76-1.46 [facility] GFR/1.73 sq M.predicted MDRD (S/P/Bld) [Vol rate/Area] 56 mL/min/{1.73_m2} Low >=60 [facility] Glucose [Mass/Vol] 246 mg/dL High 74-106 [facility] Natriuretic peptide B (Bld) [Mass/Vol] 2890.0 pg/mL High <=1800.0 [facility] Comment on above: RESULTS CALLED TO YOEL ROBIN RN @BY Alla Kunz 0556 Potassium [Moles/Vol] 4.3 mmol/L 3.5-5.1 [facility] Sodium [Moles/Vol] 136 mmol/L 136-145 [facility] TSH Qn 6.001 m[IU]/L High 0.358-3.740 [facility] Urea nitrogen [Mass/Vol] 35.0 mg/dL High 7.0-18.0 [facility] Urea nitrogen/Creatinine [Mass ratio] 30.7 mg/mg [facility] Laboratory - Hematology and Cell countson 03-26-2024 HbA1c (Bld) [Mass fraction] 11.2 % High 4.5-6.2 [facility] Comment on above: ADA RECOMMENDED LIMI T 4.0 - 6.0ADA THERAPEUTIC TARGET < 7.0ACTION SUGGESTED> 7.0 Immature granulocytes/100 WBC (Bld) 0.2 % 0.0-0.5 [facility] Leukocytes [#/volume] correc gali for nucleated erythrocytes in Blood by Automated counon 03-26-2024 WBC corrected for nucl RBC Auto (Bld) [#/Vol] 8.3 10 3/uL 4.0-11.0 [facility] Lymphocytes Auto (Bld) [#/Vo l]on 03-26-2024 Lymphocytes (Bld) [#/Vol] 1.4 10 3/uL 1.2-3.8 [facility] Lymphocytes/100 WBC Auto (Bl d)on 03-26-2024 Lymphocytes/100 WBC (Bld) 16.5 % Low 20.5-60.0 [facility] MCH Auto (RBC) [Entitic mass ]on 03-26-2024 MCH (RBC) [Entitic mass] 29.1 pg 26.7-34.0 [facility] MCHC Auto (RBC) [Mass/Vol]on 03-26-2024 MCHC (RBC) [Mass/Vol] 31.7 g/dL 29.9-35.2 [facility] MCV Auto (RBC) [Entitic vol] on 03-26-2024 MCV (RBC) [Entitic vol] 92.0 fL 81.0-99.0 [facility] Monocytes Auto (Bld) [#/Vol] on 03-26-2024 Monocytes (Bld) [#/Vol] 0.7 10 3/uL 0.3-0.8 [facility] Monocytes/100 WBC Auto (Bld) on 03-26-2024 Monocytes/100 WBC (Bld) 7.9 % 1.7-12.0 [facility] Neutrophils Auto (Bld) [#/Vo l]on 03-26-2024 Neutrophils (Bld) [#/Vol] 6.1 10 3/uL 1.4-6.5 [facility] Neutrophils/100 WBC Auto (Bl d)on 03-26-2024 Neutrophils/100 WBC (Bld) 73.4 % 43.0-75.0 [facility] No Panel Informationon 03-26 Eosinophils # (Auto) 0.1 10 3/uL 0.0-0.7 [facility] Immature Granulocyte # (Auto) 0.02 10 3/uL 0.00-0.03 [facility] Troponin I High Sensitivity 12.4 pg/mL 4.0-51.3 [facility] Comment on above: CUT-OFF POINTS HAVE BEEN [...] DIAGNOSTIC AND CLINICAL INFORMATION. 1.29 ng/dL 0.76-1.46 [facility] 6.001 u[iU]/mL High 0.358-3.740 [facility] 2890.0 pg/mL High <=1800.0 [facility] 12.4 pg/mL 4.0-51.3 [facility] 11.2 % High 4.5-6.2 [facility] 30.7 [facility] 35.0 mg/dL High 7.0-18.0 [facility] 0.1 10 3/uL 0.0-0.7 [facility] 9.1 mg/dL 8.5-10.1 [facility] 102 mmol/L 98-107 [facility] 28.5 mmol/L 21.0-32.0 [facility] 1.14 mg/dL High 0.55-1.02 [facility] 0.02 10 3/uL 0.00-0.03 [facility] 56 Low >=60 [facility] 0.2 % 0.0-0.5 [facility] 246 mg/dL High 74-106 [facility] 4.3 mmol/L 3.5-5.1 [facility] 136 mmol/L 136-145 [facility] Platelet mean volume Auto (B ld) [Entitic vol]on 03-26-2024 Platelet mean volume (Bld) [Entitic vol] 10.8 fL 9.5-13.5 [facility] Platelets Auto (Bld) [#/Vol] on 03-26-2024 Platelets (Bld) [#/Vol] 225 10 3/uL 150-450 [facility] RBC Auto (Bld) [#/Vol]on RBC (Bld) [#/Vol] 4.36 10 6/uL 4.20-5.40 [facility] Serum or plasma anion gap de terminationon 03-26-2024 Anion gap [Moles/Vol] 9.8 mmol/L [facility] GI PANEL (PCR)on 03-06-2023 Adenovirus F 40/41 Not detected Normal NOT DETECTED [facility] Comment on above: Performed By: #### P OCGLUC #### [facility] [address] [address] [address] Kasia Nath Astrovirus Not detected Normal NOT DETECTED [facility] Comment on above: Performed By: #### P OCGLUC #### [facility] [address] [address] [address] Kasia Nath C. Diff toxin A/B Detected Critically abnormal NOT DETECTED [facility] Comment on above: Performed By: #### P OCGLUC #### [facility] [address] [place] [address] Dr. Kasia Nath Campylobacter Detected Critically abnormal NOT DETECTED [facility] Comment on above: Performed By: #### P OCGLUC #### [facility] [address] [address] [address] Kasia Nath Cryptosporidium Not detected Normal NOT DETECTED [facility] Comment on above: Performed By: #### P OCGLUC #### [facility] [address] [place] [address] Dr. Kasia Nath Cyclos. Cayetanensis Not detected Normal NOT DETECTED [facility] Comment on above: Performed By: #### P OCGLUC #### [facility] [address] [place] [address] Dr. Kasia Nath E. Coli O157 Not Applicable Normal Not Applicable [facility] Comment on above: Performed By: #### P OCGLUC #### [facility] [address] [place] [address] Dr. Kasia Nath E. histolytica Not detected Normal NOT DETECTED [facility] Comment on above: Performed By: #### P OCGLUC #### [facility] [address] [place] [address] Dr. Kasia Nath EAEC Not detected Normal NOT DETECTED [facility] Comment on above: Performed By: #### P OCGLUC #### [facility] [address] [place] [address] Dr. Kasia Nath EIEC Not detected Normal NOT DETECTED [facility] Comment on above: Performed By: #### P OCGLUC #### [facility] [address] [place] [address] Dr. Kasia Nath EPEC Not detected Normal NOT DETECTED [facility] Comment on above: Performed By: #### P OCGLUC #### [facility] [address] [place] [address] Dr. Kasia Nath ETEC Not detected Normal NOT DETECTED [facility] Comment on above: Performed By: #### P OCGLUC #### [facility] [address] [address] [address] Kasia Marielia Not detected Normal NOT DETECTED [facility] Comment on above: Performed By: #### P OCGLUC #### [facility] [address] [address] [address] Kasia KHAN CONTROLS PASSED Normal [facility] Comment on above: Performed By: #### P OCGLUC #### [facility] [address] [address] [address] Kasia THOMPSON JUNO HEADER GI PANEL BACTERIA Normal T [facility] Comment on above: Performed By: #### P OCGLUC #### [facility] [address] [address] [address] Kasia GE ECOLI GI PANEL DIARRHEAGEN IC E.COLI / SHIGELLA Normal [facility] Comment on above: Performed By: #### P OCGLUC #### [facility] [address] [address] [address] Kasia GE INFO SEE BELOW Normal [facility] Comment on above: Result Comment: EAEC - Enteroaggregative E. Coli EPEC- Enteropathogenic E. Coli ETEC- Enterotoxigenic E. Coli lt/st STEC- Shigella-like toxin-producing E. Coli stx1/stx2 EIEC- Shigella/Enteroinvasive E. Coli Performed By: #### P OCGLUC #### [facility] [address] [address] [address] Kasia GE PARASITES GI PANEL PARASITES Normal [facility] Comment on above: Performed By: #### P OCGLUC #### [facility] [address] [address] [address] Kasia GE VIRUS GI PANEL VIRUSES Normal [facility] Comment on above: Performed By: #### P OCGLUC #### [facility] [address] [address] [address] Kasia Nath Norovirus GI/GII Not detected Normal NOT DETECTED [facility] Comment on above: Performed By: #### P OCGLUC #### [facility] [address] [place] [address] Dr. Kasia Garland. Shigelloides Not detected Normal NOT DETECTED [facility] Comment on above: Performed By: #### P OCGLUC #### [facility] [address] [place] [address] Dr. Kasia Nath Rotavirus A Not detected Normal NOT DETECTED [facility] Comment on above: Performed By: #### P OCGLUC #### [facility] [address] [place] [address] Dr. Kasia Nath Salmonella Not detected Normal NOT DETECTED [facility] Comment on above: Performed By: #### P OCGLUC #### [facility] [address] [place] [address] Dr. Kasia Nath Sapovirus Not detected Normal NOT DETECTED [facility] Comment on above: Performed By: #### P OCGLUC #### [facility] [address] [place] [address] Dr. Kasia Nath STEC Not detected Normal NOT DETECTED [facility] Comment on above: Performed By: #### P OCGLUC #### [facility] [address] [place] [address] Dr. Kasia Nath Vibrio Not detected Normal NOT DETECTED [facility] Comment on above: Performed By: #### P OCGLUC #### [facility] [address] [place] [address] Dr. Kasia Nath Vibrio Cholera Not detected Normal NOT DETECTED [facility] Comment on above: Performed By: #### P OCGLUC #### [facility] [address] [place] [address] Dr. Kasia Nath Y. Enterocolitica Not detected Normal NOT DETECTED [facility] Comment on above: Performed By: #### P OCGLUC #### [facility] [address] [place] [address] Dr. Kasia Nath CBC AUTO DIFFon 02-14-2023 BASO # 0.0 103/ul Normal 0.0-0.1 [facility] Comment on above: Performed By: #### P OCGLUC #### [facility] [address] [address] [address] Kasia Nath Basophils/100 WBC (Bld) 0.5 % Normal 0.2-2.0 [facility] Comment on above: Performed By: #### P OCGLUC #### [facility] [address] [place] [address] Dr. Kasia Nath EO # 0.2 103/ul Normal 0.0-0.7 [facility] Comment on above: Performed By: #### P OCGLUC #### [facility] [address] [place] [address] Dr. Kasia Nath Eosinophils/100 WBC (Bld) 2.7 % Normal 0.9-7.0 [facility] Comment on above: Performed By: #### P OCGLUC #### [facility] [address] [place] [address] Dr. Kasia Nath Erythrocyte distribution width (RBC) [Ratio] 13.0 % Normal 11.0-15.0 [facility] Comment on above: Performed By: #### P OCGLUC #### [facility] [address] [place] [address] Dr. Kasia Nath Hematocrit (Bld) [Volume fraction] 35.9 % Critically low 36.0-48.0 [facility] Comment on above: Performed By: #### P OCGLUC #### [facility] [address] [place] [address] Dr. Kasia Nath Hemoglobin (Bld) [Mass/Vol] 12.0 g/dL Normal 12.0-16.0 [facility] Comment on above: Performed By: #### P OCGLUC #### [facility] [address] [place] [address] Dr. Kasia Nath IG # 0.02 10e3/ul Normal 0.00-0.03 [facility] Comment on above: Performed By: #### P OCGLUC #### [facility] [address] [place] [address] Dr. Kasia Nath IG % 0.3 % Normal 0.0-0.5 [facility] Comment on above: Performed By: #### P OCGLUC #### [facility] [address] [address] [address] Kasia Nath LYMPH # 1.8 103/ul Normal 1.2-3.8 [facility] Comment on above: Performed By: #### P OCGLUC #### [facility] [address] [address] [address] Kasia Nath Lymphocytes/100 WBC (Bld) 22.8 % Normal 20.5-60.0 [facility] Comment on above: Performed By: #### P OCGLUC #### [facility] [address] [address] [address] Kasia Nath MANUAL DIFF REQ NO Normal [facility] Comment on above: Performed By: #### P OCGLUC #### [facility] [address] [address] [address] Kasia Nath MCH (RBC) [Entitic mass] 29.4 pg Normal 26.7-34.0 [facility] Comment on above: Performed By: #### P OCGLUC #### [facility] [address] [address] [address] Kasia Nath MCHC (RBC) [Mass/Vol] 33.4 g/dL Normal 29.9-35.2 [facility] Comment on above: Performed By: #### P OCGLUC #### [facility] [address] [address] [address] Kasia Nath MCV (RBC) [Entitic vol] 88.0 fL Normal 81.0-99.0 [facility] Comment on above: Performed By: #### P OCGLUC #### [facility] [address] [address] [address] Kasia Nath MONO # 0.7 103/ul Normal 0.3-0.8 [facility] Comment on above: Performed By: #### P OCGLUC #### [facility] [address] [address] [address] Kasia Nath Monocytes/100 WBC (Bld) 9.3 % Normal 1.7-12.0 [facility] Comment on above: Performed By: #### P OCGLUC #### [facility] [address] [address] [address] Kasia Nath NEUT # 5.1 103/ul Normal 1.4-6.5 [facility] Comment on above: Performed By: #### P OCGLUC #### [facility] [address] [address] [address] Kasia Nath Neutrophils/100 WBC (Bld) 64.4 % Normal 43.0-75.0 [facility] Comment on above: Performed By: #### P OCGLUC #### [facility] [address] [address] [address] Kasia Nath Platelet mean volume (Bld) [Entitic vol] 11.7 fL Normal 9.5-13.5 [facility] Comment on above: Performed By: #### P OCGLUC #### [facility] [address] [address] [address] Kasia Nath PLT 175 103/ul Normal 150-450 [facility] Comment on above: Performed By: #### P OCGLUC #### [facility] [address] [address] [address] Kasia Nath RBC 4.08 106/ul Critically low 4.20-5.40 [facility] Comment on above: Performed By: #### P OCGLUC #### [facility] [address] [address] [address] Kasia Nath WBC 7.9 103/ul Normal 4.0-11.0 [facility] Comment on above: Performed By: #### P OCGLUC #### [facility] [address] [address] [address] Kasia Nath LIPASEon 02-14-2023 Lipase [Catalytic activity/Vol] 51.0 U/L Critically low 73.0-393.0 [facility] Comment on above: Performed By: #### L IPA, CMP ####[facility] [address] [address]Dr. Kasia Nath PROF 14(COMP METB)on 023 Albumin [Mass/Vol] 2.8 g/dL Critically low 3.4-5.0 [facility] Comment on above: Performed By: #### L IPA, CMP ####[facility] [address] [id number]. Kasia Nath Albumin/Globulin [Mass ratio] 0.7 {ratio} Normal [facility] Comment on above: Performed By: #### L IPA, CMP ####[facility] [address] [id number]. Kasia Nath ALP [Catalytic activity/Vol] 90 U/L Normal 46-116 [facility] Comment on above: Performed By: #### L IPA, CMP ####[facility] [address] [id number]. Kasia Nath ALT [Catalytic activity/Vol] 15 U/L Normal 14-59 [facility] Comment on above: Performed By: #### L IPA, CMP ####[facility] [address] [address]Dr. Kasia Nath Anion gap [Moles/Vol] 15.6 mmol/L Normal [facility] Comment on above: Performed By: #### L IPA, CMP ####[facility] [address] [id number]. Kasia Nath AST [Catalytic activity/Vol] 9 U/L Critically low 15-37 [facility] Comment on above: Performed By: #### L IPA, CMP ####[facility] [address] [id number]. Kasia Nath Bilirubin [Mass/Vol] 0.4 mg/dL Normal 0.2-1.0 [facility] Comment on above: Performed By: #### L IPA, CMP ####[facility] [address] [id number]. Kasia Nath Calcium [Mass/Vol] 9.1 mg/dL Normal 8.5-10.1 [facility] Comment on above: Performed By: #### L IPA, CMP ####[facility] [address] [id number]. Kasia Nath Chloride [Moles/Vol] 104 mmol/L Normal 98-107 [facility] Comment on above: Performed By: #### L IPA, CMP ####[facility] [address] [address]Dr. Kasia Nath CO2 [Moles/Vol] 17.0 mmol/L Critically low 21.0-32.0 [facility] Comment on above: Performed By: #### L IPA, CMP ####[facility] [address] [place], [place] [address]Dr. Kasia Nath Creatinine [Mass/Vol] 1.78 mg/dL Critically high 0.55-1.02 [facility] Comment on above: Performed By: #### L IPA, CMP ####[facility] [address] [place], [place] [address]Dr. Kasia Nath EGFR-AF EQUATORIAL GUINEAN 34 mL/min/1.73m2 Critically low >=60 [facility] Comment on above: Performed By: #### L IPA, CMP ####[facility] [address] [place], [place] [address]Dr. Kasia Nath EGFR-NON AF EQUATORIAL GUINEAN 28 mL/min/1.73m2 Critically low >=60 [facility] Comment on above: Performed By: #### L IPA, CMP ####[facility] [address] [place], [place] [address]Dr. Kasia Nath Globulin (S) [Mass/Vol] 4.3 g/dL Normal [facility] Comment on above: Performed By: #### L IPA, CMP ####[facility] [address] [place], [place] [address]Dr. Kasia Nath Glucose [Mass/Vol] 248 mg/dL Critically high 74-106 [facility] Comment on above: Performed By: #### L IPA, CMP ####[facility] [address] [place], [place] [address]Dr. Kasia Nath Potassium [Moles/Vol] 4.6 mmol/L Normal 3.5-5.1 [facility] Comment on above: Performed By: #### L IPA, CMP ####[facility] [address] [place], [place] [address]Dr. Kasia Nath Protein [Mass/Vol] 7.1 g/dL Normal 6.4-8.2 [facility] Comment on above: Performed By: #### L IPA, CMP ####[facility] [address] [place], [place] [address]Dr. Kasia Nath Sodium [Moles/Vol] 132 mmol/L Critically low 136-145 [facility] Comment on above: Performed By: #### L IPA, CMP ####[facility] [address] [place], [place] [address]Dr. Kasia Nath Urea nitrogen [Mass/Vol] 78.0 mg/dL Critically high 7.0-18.0 [facility] Comment on above: Performed By: #### L IPA, CMP ####[facility] [address] [place], [place] [address]Dr. Kasia Nath Urea nitrogen/Creatinine [Mass ratio] 43.8 mg/mg Normal [facility] Comment on above: Performed By: #### L IPA, CMP ####[facility] [address] [place], [place] [address]Dr. Kasia Nath CBC AUTO DIFFon 02-13-2023 BASO # 0.0 103/ul Normal 0.0-0.1 [facility] Comment on above: Performed By: #### C BC ####[facility] [address] [place], [place] [address]Dr. Kasia Nath Basophils/100 WBC (Bld) 0.5 % Normal 0.2-2.0 [facility] Comment on above: Performed By: #### C BC ####[facility] [address] [place], [place] [address]Dr. Kasia Nath EO # 0.1 103/ul Normal 0.0-0.7 [facility] Comment on above: Performed By: #### C BC ####[facility] [address] [place], [place] [address]Dr. Kasia Nath Eosinophils/100 WBC (Bld) 1.0 % Normal 0.9-7.0 [facility] Comment on above: Performed By: #### C BC ####[facility] [address] [id number]. Kasia Nath Erythrocyte distribution width (RBC) [Ratio] 12.8 % Normal 11.0-15.0 [facility] Comment on above: Performed By: #### C BC ####[facility] [address] [address]Dr. Kasia Nath Hematocrit (Bld) [Volume fraction] 38.5 % Normal 36.0-48.0 [facility] Comment on above: Performed By: #### C BC ####[facility] [address] [place], [place] [address]Dr. Kasia Nath Hemoglobin (Bld) [Mass/Vol] 13.0 g/dL Normal 12.0-16.0 [facility] Comment on above: Performed By: #### C BC ####[facility] [address] [place], [place] [address]Dr. Kasia Nath IG # 0.02 10e3/ul Normal 0.00-0.03 [facility] Comment on above: Performed By: #### C BC ####[facility] [address] [place], [place] [address]Dr. Kasia Nath IG % 0.2 % Normal 0.0-0.5 [facility] Comment on above: Performed By: #### C BC ####[facility] [address] [place], [place] [address]Dr. Kasia Nath LYMPH # 0.9 103/ul Critically low 1.2-3.8 [facility] Comment on above: Performed By: #### C BC ####[facility] [address] [place], [place] [address]Dr. Kasia Nath Lymphocytes/100 WBC (Bld) 10.0 % Critically low 20.5-60.0 [facility] Comment on above: Performed By: #### C BC ####[facility] [address] [place], [place] [address]Dr. Kasia Nath MANUAL DIFF REQ NO Normal [facility] Comment on above: Performed By: #### C BC ####[facility] [address] [id number]. Kasia Nath MCH (RBC) [Entitic mass] 29.5 pg Normal 26.7-34.0 [facility] Comment on above: Performed By: #### C BC ####[facility] [address] [id number]. Kasia Nath MCHC (RBC) [Mass/Vol] 33.8 g/dL Normal 29.9-35.2 [facility] Comment on above: Performed By: #### C BC ####[facility] [address] [id number]. Kasia Nath MCV (RBC) [Entitic vol] 87.5 fL Normal 81.0-99.0 [facility] Comment on above: Performed By: #### C BC ####[facility] [address] [place], [place] [address]Dr. Kasia Portillo MONO # 0.5 103/ul Normal 0.3-0.8 [facility] Comment on above: Performed By: #### C BC ####[facility] [address] [place], [place] [address]Dr. Kasia Portillo Monocytes/100 WBC (Bld) 5.7 % Normal 1.7-12.0 [facility] Comment on above: Performed By: #### C BC ####[facility] [address] [place], [place] [address]Dr. Kasia Nath NEUT # 7.2 103/ul Critically high 1.4-6.5 [facility] Comment on above: Performed By: #### C BC ####[facility] [address] [place], [place] [address]Dr. Kasia Portillo Neutrophils/100 WBC (Bld) 82.6 % Critically high 43.0-75.0 [facility] Comment on above: Performed By: #### C BC ####[facility] [address] [place], [place] [address]Dr. Kasia Nath Platelet mean volume (Bld) [Entitic vol] 11.8 fL Normal 9.5-13.5 [facility] Comment on above: Performed By: #### C BC ####[facility] [address] [place], [place] [address]Nw. Kasia Nath PLT 187 103/ul Normal 150-450 [facility] Comment on above: Performed By: #### C BC ####[facility] [address] [place], [place] [address]Ew. Kasia Nath RBC 4.40 106/ul Normal 4.20-5.40 [facility] Comment on above: Performed By: #### C BC ####[facility] [address] [place], [place] [address]Hh. Kasia Nath WBC 8.8 103/ul Normal 4.0-11.0 [facility] Comment on above: Performed By: #### C BC ####[facility] [address] [place], [place] [address]La. Kasia Nath CT ABD/PELVIS WO CONon 02-13 [...] MCCURDY Date: 2023-02-13 14:40 Normal [facility] CULTURE URINEon 02-13-2023 CULTURE URINE Culture Observations : LIGHT GROWTH OF MIXED GENITAL VON. NO POTENTIAL PATHOGENS SEEN. Normal [facility] Comment on above: Performed By: #### U RCX ####[facility] [address] [place], [place] [address]BvDr. Kasia Nath Covid-19 PCR ([facility])on SARS-CoV-2 (COVID-19) RNA FERN+probe Ql (Unsp spec) Not detected Normal NOT DETECTED [facility] Comment on above: Result Comment: [...] for this test is supported by the [place] of Health and Human Service's declaration that [...] Performed By: #### P OCGLUC #### [facility] [address] [place], [place] [address] Dr. Kasia Nath GI PANEL (PCR)on 02-13-2023 Adenovirus F 40/41 Not detected Normal NOT DETECTED [facility] Comment on above: Performed By: #### C BC #### [facility] [address] [place], [place] [address] Dr. Kasia Nath Astrovirus Not detected Normal NOT DETECTED [facility] Comment on above: Performed By: #### C BC #### [facility] [address] [place] [address] Dr. Kasia Chanel Diff toxin A/B Not detected Normal NOT DETECTED [facility] Comment on above: Performed By: #### C BC #### [facility] [address] [place] [address] Dr. Kasia Nath Campylobacter Not detected Normal NOT DETECTED [facility] Comment on above: Performed By: #### C BC #### [facility] [address] [place] [address] Dr. Kasia Nath Cryptosporidium Not detected Normal NOT DETECTED [facility] Comment on above: Performed By: #### C BC #### [facility] [address] [place] [address] Dr. Kasia Nath Cyclos. Cayetanensis Not detected Normal NOT DETECTED [facility] Comment on above: Performed By: #### C BC #### [facility] [address] [place] [address] Dr. Kasia Nath E. Coli O157 Not Applicable Normal Not Applicable [facility] Comment on above: Performed By: #### C BC #### [facility] [address] [place] [address] Dr. Kasia Nath E. histolytica Not detected Normal NOT DETECTED [facility] Comment on above: Performed By: #### C BC #### [facility] [address] [place] [address] Dr. Kasia Nath EAEC Not detected Normal NOT DETECTED [facility] Comment on above: Performed By: #### C BC #### [facility] [address] [place] [address] Dr. Kasia Nath EIEC Not detected Normal NOT DETECTED [facility] Comment on above: Performed By: #### C BC #### [facility] [address] [place] [address] Dr. Kasia Nath EPEC Not detected Normal NOT DETECTED [facility] Comment on above: Performed By: #### C BC #### [facility] [address] [place] [address] Dr. Kasia Nath ETEC Not detected Normal NOT DETECTED [facility] Comment on above: Performed By: #### C BC #### [facility] [address] [address] [address] Kasia Ewing Not detected Normal NOT DETECTED [facility] Comment on above: Performed By: #### C BC #### [facility] [address] [address] [address] Kasia KHAN CONTROLS PASSED Normal [facility] Comment on above: Performed By: #### C BC #### [facility] [address] [address] [address] Kasia THOMPSON JUNO HEADER GI PANEL BACTERIA Normal [facility] Comment on above: Performed By: #### C BC #### [facility] [address] [address] [address] Kasia GE ECOLI GI PANEL DIARRHEAGEN IC E.COLI / SHIGELLA Normal [facility] Comment on above: Performed By: #### C BC #### [facility] [address] [address] [address] Kasia GE INFO SEE BELOW Normal [facility] Comment on above: Result Comment: EAEC - Enteroaggregative E. Coli EPEC- Enteropathogenic E. Coli ETEC- Enterotoxigenic E. Coli lt/st STEC- Shigella-like toxin-producing E. Coli stx1/stx2 EIEC- Shigella/Enteroinvasive E. Coli Performed By: #### C BC #### [facility] [address] [place] [address] Dr. Kasia GE PARASITES GI PANEL PARASITES Normal [facility] Comment on above: Performed By: #### C BC #### [facility] [address] [address] [address] Kasia GE VIRUS GI PANEL VIRUSES Normal [facility] Comment on above: Performed By: #### C BC #### [facility] [address] [address] [address] Kasia Nath Norovirus GI/GII Not detected Normal NOT DETECTED [facility] Comment on above: Performed By: #### C BC #### [facility] [address] [place] [address] Dr. Kasia Nath P. Shigelloides Not detected Normal NOT DETECTED [facility] Comment on above: Performed By: #### C BC #### [facility] [address] [place] [address] Dr. Kasia Nath Rotavirus A Not detected Normal NOT DETECTED [facility] Comment on above: Performed By: #### C BC #### [facility] [address] [place] [address] Dr. Kasia Nath Salmonella Not detected Normal NOT DETECTED [facility] Comment on above: Performed By: #### C BC #### [facility] [address] [place] [address] Dr. Kasia Nath Sapovirus Not detected Normal NOT DETECTED [facility] Comment on above: Performed By: #### C BC #### [facility] [address] [place] [address] Dr. Kasia Nath STEC Not detected Normal NOT DETECTED [facility] Comment on above: Performed By: #### C BC #### [facility] [address] [place] [address] Dr. Kasia Nath Vibrio Not detected Normal NOT DETECTED [facility] Comment on above: Performed By: #### C BC #### [facility] [address] [place] [address] Dr. Kasia Nath Vibrio Cholera Not detected Normal NOT DETECTED [facility] Comment on above: Performed By: #### C BC #### [facility] [address] [place] [address] Dr. Kasia Nath Y. Enterocolitica Not detected Normal NOT DETECTED [facility] Comment on above: Performed By: #### C BC #### [facility] [address] [place] [address] Dr. Kasia Nath LACTATE/LACTIC ACIDon 2022 Lactate [Moles/Vol] 1.7 mmol/L Normal 0.4-2.0 [facility] Comment on above: Performed By: #### L ACT ####[facility] [address] [address]Dr. Kasia Nath LIPASEon 02-13-2023 Lipase [Catalytic activity/Vol] 82.0 U/L Normal 73.0-393.0 [facility] Comment on above: Performed By: #### L IPA, CMP #### [facility] [address] [place] [address] Dr. Kasia Nath POINT OF CARE GLUCOSEon Glucose [Mass/Vol] 229 mg/dL Critically high 74-106 [facility] Comment on above: Performed By: #### P OCGLUC #### [facility] [address] [place] [address] Dr. Kasia Nath Glucose [Mass/Vol] 474 mg/dL Critically high 74-106 [facility] Comment on above: Performed By: #### P OCGLUC #### [facility] [address] [place] [address] Dr. Kasia Nath PROF 14(COMP METB)on 023 Albumin [Mass/Vol] 3.4 g/dL Normal 3.4-5.0 [facility] Comment on above: Performed By: #### L IPA, CMP #### [facility] [address] [place] [address] Dr. Kasia Nath Albumin/Globulin [Mass ratio] 0.7 {ratio} Normal [facility] Comment on above: Performed By: #### L IPA, CMP #### [facility] [address] [place] [address] Dr. Kasia Ntah ALP [Catalytic activity/Vol] 106 U/L Normal 46-116 [facility] Comment on above: Performed By: #### L IPA, CMP #### [facility] [address] [place] [address] Dr. Kasia Nath ALT [Catalytic activity/Vol] 21 U/L Normal 14-59 [facility] Comment on above: Performed By: #### L IPA, CMP #### [facility] [address] [place] [address] Dr. Kasia Nath Anion gap [Moles/Vol] 17.7 mmol/L Normal [facility] Comment on above: Performed By: #### L IPA, CMP #### [facility] [address] [address] [address] Kasia Nath AST [Catalytic activity/Vol] 11 U/L Critically low 15-37 [facility] Comment on above: Performed By: #### L IPA, CMP #### [facility] [address] [address] [address] Kasia Nath Bilirubin [Mass/Vol] 0.5 mg/dL Normal 0.2-1.0 [facility] Comment on above: Performed By: #### L IPA, CMP #### [facility] [address] [address] [address] Kasia Nath Calcium [Mass/Vol] 9.6 mg/dL Normal 8.5-10.1 [facility] Comment on above: Performed By: #### L IPA, CMP #### [facility] [address] [address] [address] Kasia Nath Chloride [Moles/Vol] 99 mmol/L Normal 98-107 [facility] Comment on above: Performed By: #### L IPA, CMP #### [facility] [address] [address] [address] Kasia Nath CO2 [Moles/Vol] 20.6 mmol/L Critically low 21.0-32.0 [facility] Comment on above: Performed By: #### L IPA, CMP #### [facility] [address] [place] [address] Dr. Kasia Nath Creatinine [Mass/Vol] 2.14 mg/dL Critically high 0.55-1.02 [facility] Comment on above: Performed By: #### L IPA, CMP #### [facility] [address] [address] [address] Kasia Nath EGFR-AF EQUATORIAL GUINEAN 27 mL/min/1.73m2 Critically low >=60 [facility] Comment on above: Performed By: #### L IPA, CMP #### [facility] [address] [address] [address] Kasia Nath EGFR-NON AF EQUATORIAL GUINEAN 22 mL/min/1.73m2 Critically low >=60 [facility] Comment on above: Performed By: #### L IPA, CMP #### [facility] [address] [address] [address] Kasia Nath Globulin (S) [Mass/Vol] 4.8 g/dL Normal [facility] Comment on above: Performed By: #### L IPA, CMP #### [facility] [address] [address] [address] Kasia Nath Glucose [Mass/Vol] 498 mg/dL Critically high 74-106 [facility] Comment on above: Performed By: #### L IPA, CMP #### [facility] [address] [address] [address] Kasia Nath Potassium [Moles/Vol] 5.3 mmol/L Critically high 3.5-5.1 [facility] Comment on above: Performed By: #### L IPA, CMP #### [facility] [address] [place] [address] Dr. Kasia Nath Protein [Mass/Vol] 8.2 g/dL Normal 6.4-8.2 [facility] Comment on above: Performed By: #### L IPA, CMP #### [facility] [address] [place] [address] Dr. Kasia Nath Sodium [Moles/Vol] 132 mmol/L Critically low 136-145 [facility] Comment on above: Performed By: #### L IPA, CMP #### [facility] [address] [address] [address] Kasia Nath Urea nitrogen [Mass/Vol] 86.0 mg/dL Critically high 7.0-18.0 [facility] Comment on above: Performed By: #### L IPA, CMP #### [facility] [address] [address] [address] Kasia Nath Urea nitrogen/Creatinine [Mass ratio] 40.2 mg/mg Normal [facility] Comment on above: Performed By: #### L IPA, CMP #### [facility] [address] [place] [address] Dr. Kasia Nath UA RANDOM W/MICROSCOPICon BACTERIA TRACE Abnormal NONE SEEN [facility] Comment on above: Performed By: #### U AMIC ####[facility] [address] [address]Dr. Kasia Nath Bilirubin Ql (U) Negative Normal NEGATIVE [facility] Comment on above: Performed By: #### U AMIC ####[facility] [address] [address]Dr. Kasia Nath CAST SEEN Abnormal NONE SEEN [facility] Comment on above: Performed By: #### U AMIC ####[facility] [address] [address]Dr. Kasia Nath Clarity (U) CLEAR Normal CLEAR [facility] Comment on above: Performed By: #### U AMIC ####[facility] [address] [address]Dr. Kasia Nath Color (U) LT. YELLOW Normal YELLOW [facility] Comment on above: Performed By: #### U AMIC ####[facility] [address] [place], [place] [address]Dr. Kasia Nath Crystals LM Nom (Urine sed) NONE SEEN Normal NONE SEEN [facility] Comment on above: Performed By: #### U AMIC ####[facility] Q[address] [place], [place] [address]Dr. Kasia Nath Epithelial cells LM Ql (Urine sed) FEW Abnormal NONE SEEN /RARE [facility] Comment on above: Performed By: #### U AMIC ####[facility] [address] [place], [place] [address]Dr. Kasia Nath Glucose Ql (U) >1000 Abnormal NEGATIVE [facility] Comment on above: Performed By: #### U AMIC ####[facility] [address] [place], [place] [address]Dr. Kasia Nath Hemoglobin Ql (U) Negative Normal NEGATIVE [facility] Comment on above: Performed By: #### U AMIC ####[facility] [address] [address]Dr. Kasia Nath HYALINE CAST RARE Normal [facility] Comment on above: Performed By: #### U AMIC ####[facility] [address] [address]Dr. Fartuncristy Nath Ketones Ql (U) Negative Normal NEGATIVE [facility] Comment on above: Performed By: #### U AMIC ####[facility] [address] [address]Dr. Kasia Nath LEUKOCYTES Negative Normal NEGATIVE [facility] Comment on above: Performed By: #### U AMIC ####[facility] [address] [place], [place] [address]Dr. Kasia Nath MUCOUS NONE SEEN Normal NONE SEEN [facility] Comment on above: Performed By: #### U AMIC ####[facility] [address] [place], [place] [address]Dr. Kasia Nath Nitrite Ql (U) Negative Normal NEGATIVE [facility] Comment on above: Performed By: #### U AMIC ####[facility] M[address] [place], [place] [address]Dr. Kasia Nath pH (U) 5.5 [pH] Normal 5-9 [facility] Comment on above: Performed By: #### U AMIC ####[facility] [address] [place], [place] [address]Dr. Kasia Nath RBC 0-2 Normal 0-2 [facility] Comment on above: Performed By: #### U AMIC ####[facility] [address] [place], [place] [address]Dr. Kasia Nath SPEC GRAVITY 1.015 Normal 1.005-<=1.0 25 [facility] Comment on above: Performed By: #### U AMIC ####[facility] E[address] [place], [place] [address]Dr. Kasia Nath UA PROTEIN TRACE Normal NEGATIVE/ TRACE [facility] Comment on above: Performed By: #### U AMIC ####[facility] [address] [place], [place] [address]Dr. Kasia Nath Urobilinogen Qn (U) 0.2 {Meka'U}/dL Normal 0.2 - 1. 0 [facility] Comment on above: Performed By: #### U AMIC ####[facility] [address] [address]Dr. Kasia Nath WBC 0-2 Abnormal NONE SEEN [facility] Comment on above: Performed By: #### U AMIC ####[facility] [address] [address]Dr. Kasia Nath BNPon 01-16-2023 Natriuretic peptide B (Bld) [Mass/Vol] 1675.0 pg/mL Normal <=1,800.0 [facility] Comment on above: Performed By: #### B DATA ENTRY SUPERVISOR, CMP ####[facility] [address] [address]Dr. Kasia Nath PROF 14(COMP METB)on 023 Albumin [Mass/Vol] 3.4 g/dL Normal 3.4-5.0 [facility] Comment on above: Performed By: #### B DATA ENTRY SUPERVISOR, CMP ####[facility] [address] [place], [place] [address]Dr. Kasia Nath Albumin/Globulin [Mass ratio] 0.8 {ratio} Normal [facility] Comment on above: Performed By: #### B DATA ENTRY SUPERVISOR, CMP ####[facility] [address] [place], [place] [address]Dr. Kasia Nath ALP [Catalytic activity/Vol] 99 U/L Normal 46-116 [facility] Comment on above: Performed By: #### B DATA ENTRY SUPERVISOR, CMP ####[facility] [address] [address]Dr. Kasia Nath ALT [Catalytic activity/Vol] 18 U/L Normal 14-59 [facility] Comment on above: Performed By: #### B DATA ENTRY SUPERVISOR, CMP ####[facility] [address] [address]Dr. Kasia Nath Anion gap [Moles/Vol] 10.6 mmol/L Normal [facility] Comment on above: Performed By: #### B DATA ENTRY SUPERVISOR, CMP ####[facility] [address] [address]Dr. Kasia Nath AST [Catalytic activity/Vol] 15 U/L Normal 15-37 [facility] Comment on above: Performed By: #### B DATA ENTRY SUPERVISOR, CMP ####[facility] [address] [address]Dr. Kasia Nath Bilirubin [Mass/Vol] 0.5 mg/dL Normal 0.2-1.0 [facility] Comment on above: Performed By: #### B DATA ENTRY SUPERVISOR, CMP ####[facility] [address] [address]Dr. Kasia Nath Calcium [Mass/Vol] 9.1 mg/dL Normal 8.5-10.1 [facility] Comment on above: Performed By: #### B DATA ENTRY SUPERVISOR, CMP ####[facility] [address] [place], [place] [address]Dr. Kasia Nath Chloride [Moles/Vol] 98 mmol/L Normal 98-107 [facility] Comment on above: Performed By: #### B DATA ENTRY SUPERVISOR, CMP ####[facility] [address] [place], [place] [address]Dr. Kasia Nath CO2 [Moles/Vol] 30.4 mmol/L Normal 21.0-32.0 [facility] Comment on above: Performed By: #### B DATA ENTRY SUPERVISOR, CMP ####[facility] Um[address] [place], [place] [address]Dr. Kasia Nath Creatinine [Mass/Vol] 1.44 mg/dL Critically high 0.55-1.02 [facility] Comment on above: Performed By: #### B DATA ENTRY SUPERVISOR, CMP ####[facility] Yxny[address]hb[address] [place], [place] [address]Dr. Kasia Portillo EGFR-AF EQUATORIAL GUINEAN 43 mL/min/1.73m2 Critically low >=60 [facility] Comment on above: Performed By: #### B DATA ENTRY SUPERVISOR, CMP ####[facility] [address] [place], [place] [address]Dr. Fartuncristy Portillo EGFR-NON AF EQUATORIAL GUINEAN 35 mL/min/1.73m2 Critically low >=60 [facility] Comment on above: Performed By: #### B DATA ENTRY SUPERVISOR, CMP ####[facility] Nx[address]rrt[address] [place], [place] [address]Dr. Kasia Nath Globulin (S) [Mass/Vol] 4.4 g/dL Normal [facility] Comment on above: Performed By: #### B DATA ENTRY SUPERVISOR, CMP ####[facility] [address] [address]Dr. Kasia Nath Glucose [Mass/Vol] 401 mg/dL Critically high 74-106 [facility] Comment on above: Performed By: #### B DATA ENTRY SUPERVISOR, CMP ####[facility] [address] [place], [place] [address]Dr. Kasia Nath Potassium [Moles/Vol] 5.0 mmol/L Normal 3.5-5.1 [facility] Comment on above: Performed By: #### B DATA ENTRY SUPERVISOR, CMP ####[facility] [address] [place], [place] [address]Dr. Kasia Nath Protein [Mass/Vol] 7.8 g/dL Normal 6.4-8.2 [facility] Comment on above: Performed By: #### B DATA ENTRY SUPERVISOR, CMP ####[facility] [address] [place], [place] [address]Dr. Kasia Nath Sodium [Moles/Vol] 134 mmol/L Critically low 136-145 [facility] Comment on above: Performed By: #### B DATA ENTRY SUPERVISOR, CMP ####[facility] [address] [place], [place] [address]Dr. Kasia Nath Urea nitrogen [Mass/Vol] 46.0 mg/dL Critically high 7.0-18.0 [facility] Comment on above: Performed By: #### B DATA ENTRY SUPERVISOR, CMP ####[facility] [address] [place], [place] [address]Dr. Kasia Nath Urea nitrogen/Creatinine [Mass ratio] 31.9 mg/mg Normal [facility] Comment on above: Performed By: #### B DATA ENTRY SUPERVISOR, CMP ####[facility] [address] [place], [place] [address]Dr. Kasia Nath BNPon 01-05-2023 Natriuretic peptide B (Bld) [Mass/Vol] 1389.0 pg/mL Normal <=1,800.0 [facility] Comment on above: Performed By: #### B DATA ENTRY SUPERVISOR, CMADM, CMP ####[facility] [address] [id number]. Kasia Nath CARDIAC EMERY ADMITon 023 CK [Catalytic activity/Vol] 138 U/L Normal 26-192 [facility] Comment on above: Performed By: #### B DATA ENTRY SUPERVISOR, CMADM, CMP ####[facility] [address] [id number]. Kasia Nath CK.MB [Mass/Vol] 2.22 ng/mL Normal <=3.60 [facility] Comment on above: Performed By: #### B DATA ENTRY SUPERVISOR, CMADM, CMP ####[facility] [address] [address]Dr. Kasia Nath HSTROP 15.9 pg/mL Normal 4.0-51.3 [facility] Comment on above: Result Comment: CUT- OFF POINTS HAVE BEEN ESTABLISHED BASED ON THE FOURTH UNIVERSAL DEFINITIONS OF MYOCARDIAL INFARCTION. THE UPPER REFERENCE LIMIT (URL) OF TROPONIN, DEFINED THE 99TH PERCENTILE OF cTnI DISTRIBUTION IN A REFERENCE POPULATION, HAS BEEN CONFIRMED THE DECISION THRESHOLD FOR CA DIAGNOSIS. Performed By: #### B DATA ENTRY SUPERVISOR, CMADM, CMP ####[facility] [address] [address]DrDoreen Nath GRETTA 178 ng/mL Critically high 9-82 [facility] Comment on above: Performed By: #### B DATA ENTRY SUPERVISOR, CMADM, CMP ####[facility] [address] [id number] Nath CBC AUTO DIFFon 01-05-2023 BASO # 0.1 103/ul Normal 0.0-0.1 [facility] Comment on above: Performed By: #### C BC #### [facility] [address] [place] [address] Dr. Kasia Nath Basophils/100 WBC (Bld) 0.7 % Normal 0.2-2.0 [facility] Comment on above: Performed By: #### C BC #### [facility] [address] [place] [address] Dr. Kasia Nath EO # 0.3 103/ul Normal 0.0-0.7 [facility] Comment on above: Performed By: #### C BC #### [facility] [address] [place] [address] Dr. Kasia Nath Eosinophils/100 WBC (Bld) 2.9 % Normal 0.9-7.0 [facility] Comment on above: Performed By: #### C BC #### [facility] [address] [place] [address] Dr. Kasia Nath Erythrocyte distribution width (RBC) [Ratio] 13.5 % Normal 11.0-15.0 [facility] Comment on above: Performed By: #### C BC #### [facility] [address] [place] [address] Dr. Kasia Nath Hematocrit (Bld) [Volume fraction] 39.8 % Normal 36.0-48.0 [facility] Comment on above: Performed By: #### C BC #### [facility] [address] [place] [address] Dr. Kasia Nath Hemoglobin (Bld) [Mass/Vol] 13.5 g/dL Normal 12.0-16.0 [facility] Comment on above: Performed By: #### C BC #### [facility] [address] [place] [address] Dr. Kasia Nath IG # 0.02 10e3/ul Normal 0.00-0.03 [facility] Comment on above: Performed By: #### C BC #### [facility] [address] [place] [address] Dr. Kasia Nath IG % 0.2 % Normal 0.0-0.5 [facility] Comment on above: Performed By: #### C BC #### [facility] [address] [place] [address] Dr. Kasia Nath LYMPH # 1.9 103/ul Normal 1.2-3.8 [facility] Comment on above: Performed By: #### C BC #### [facility] [address] [place] [address] Dr. Kasia Nath Lymphocytes/100 WBC (Bld) 22.0 % Normal 20.5-60.0 [facility] Comment on above: Performed By: #### C BC #### [facility] [address] [place] [address] Dr. Kasia Nath MANUAL DIFF REQ NO Normal [facility] Comment on above: Performed By: #### C BC #### [facility] [address] [place] [address] Dr. Kasia Nath MCH (RBC) [Entitic mass] 29.8 pg Normal 26.7-34.0 [facility] Comment on above: Performed By: #### C BC #### [facility] [address] [place] [address] Dr. Kasia Nath MCHC (RBC) [Mass/Vol] 33.9 g/dL Normal 29.9-35.2 [facility] Comment on above: Performed By: #### C BC #### [facility] [address] [place] [address] Dr. Kasia Nath MCV (RBC) [Entitic vol] 87.9 fL Normal 81.0-99.0 [facility] Comment on above: Performed By: #### C BC #### [facility] [address] [place] [address] Dr. Kasia Nath MONO # 0.8 103/ul Normal 0.3-0.8 [facility] Comment on above: Performed By: #### C BC #### [facility] [address] [place] [address] Dr. Kasia Nath Monocytes/100 WBC (Bld) 8.8 % Normal 1.7-12.0 [facility] Comment on above: Performed By: #### C BC #### [facility] [address] [place] [address] Dr. Kasia Nath NEUT # 5.6 103/ul Normal 1.4-6.5 [facility] Comment on above: Performed By: #### C BC #### [facility] [address] [place] [address] Dr. Kasia Nath Neutrophils/100 WBC (Bld) 65.4 % Normal 43.0-75.0 [facility] Comment on above: Performed By: #### C BC #### [facility] [address] [address] [address] Kasia Nath Platelet mean volume (Bld) [Entitic vol] 10.6 fL Normal 9.5-13.5 [facility] Comment on above: Performed By: #### C BC #### [facility] [address] [address] [address] Kasia Nath PLT 222 103/ul Normal 150-450 [facility] Comment on above: Performed By: #### C BC #### [facility] [address] [place] [address] Dr. Kasia Nath RBC 4.53 106/ul Normal 4.20-5.40 [facility] Comment on above: Performed By: #### C BC #### [facility] [address] [place] [address] Dr. Kasia Nath WBC 8.6 103/ul Normal 4.0-11.0 [facility] Comment on above: Performed By: #### C BC #### [facility] [address] [place] [address] Dr. Kasia Nath PROF 14(COMP METB)on 023 Albumin [Mass/Vol] 3.3 g/dL Critically low 3.4-5.0 [facility] Comment on above: Performed By: #### B DATA ENTRY SUPERVISOR, CMADM, CMP #### [facility] [address] [place] [address] Dr. Kasia Nath Albumin/Globulin [Mass ratio] 0.7 {ratio} Normal [facility] Comment on above: Performed By: #### B DATA ENTRY SUPERVISOR, CMADM, CMP #### [facility] [address] [place] [address] Dr. Ksaia Nath ALP [Catalytic activity/Vol] 106 U/L Normal 46-116 [facility] Comment on above: Performed By: #### B DATA ENTRY SUPERVISOR, CMADM, CMP #### [facility] [address] [place] [address] Dr. Kasia Nath ALT [Catalytic activity/Vol] 22 U/L Normal 14-59 [facility] Comment on above: Performed By: #### B DATA ENTRY SUPERVISOR, CMADM, CMP #### [facility] [address] [address] [address] Kasia Nath Anion gap [Moles/Vol] 12.0 mmol/L Normal [facility] Comment on above: Performed By: #### B DATA ENTRY SUPERVISOR, CMADM, CMP #### [facility] [address] [address] [address] Kasia Nath AST [Catalytic activity/Vol] 23 U/L Normal 15-37 [facility] Comment on above: Performed By: #### B DATA ENTRY SUPERVISOR, CMADM, CMP #### [facility] [address] [place] [address] Dr. Kasia Nath Bilirubin [Mass/Vol] 0.7 mg/dL Normal 0.2-1.0 [facility] Comment on above: Performed By: #### B DATA ENTRY SUPERVISOR, CMADM, CMP #### [facility] [address] [place] [address] Dr. Kasia Nath Calcium [Mass/Vol] 8.8 mg/dL Normal 8.5-10.1 [facility] Comment on above: Performed By: #### B DATA ENTRY SUPERVISOR, CMADM, CMP #### [facility] [address] [place] [address] Dr. Kasia Nath Chloride [Moles/Vol] 98 mmol/L Normal 98-107 [facility] Comment on above: Performed By: #### B DATA ENTRY SUPERVISOR, CMADM, CMP #### [facility] [address] [place] [address] Dr. Kasia Nath CO2 [Moles/Vol] 30.2 mmol/L Normal 21.0-32.0 [facility] Comment on above: Performed By: #### B DATA ENTRY SUPERVISOR, CMADM, CMP #### [facility] [address] [place] [address] Dr. Kasia Nath Creatinine [Mass/Vol] 1.19 mg/dL Critically high 0.55-1.02 [facility] Comment on above: Performed By: #### B DATA ENTRY SUPERVISOR, CMADM, CMP #### [facility] [address] [address] [address] Kasia Nath EGFR-AF EQUATORIAL GUINEAN 53 mL/min/1.73m2 Critically low >=60 [facility] Comment on above: Performed By: #### B DATA ENTRY SUPERVISOR, CMADM, CMP #### [facility] [address] [address] [address] Kasia Nath EGFR-NON AF EQUATORIAL GUINEAN 44 mL/min/1.73m2 Critically low >=60 [facility] Comment on above: Performed By: #### B DATA ENTRY SUPERVISOR, CMADM, CMP #### [facility] [address] [address] [address] Kasia Nath Globulin (S) [Mass/Vol] 4.7 g/dL Normal [facility] Comment on above: Performed By: #### B DATA ENTRY SUPERVISOR, CMADM, CMP #### [facility] [address] [address] [address] Kasia Nath Glucose [Mass/Vol] 124 mg/dL Critically high 74-106 [facility] Comment on above: Performed By: #### B DATA ENTRY SUPERVISOR, CMADM, CMP #### [facility] [address] [place] [address] Dr. Kasia Nath Potassium [Moles/Vol] 3.2 mmol/L Critically low 3.5-5.1 [facility] Comment on above: Performed By: #### B DATA ENTRY SUPERVISOR, CMADM, CMP #### [facility] [address] [place] [address] [address] Kasia Nath Protein [Mass/Vol] 8.0 g/dL Normal 6.4-8.2 [facility] Comment on above: Performed By: #### B DATA ENTRY SUPERVISOR, CMADM, CMP #### [facility] [address] [place] [address] [address] Kasia Nath Sodium [Moles/Vol] 137 mmol/L Normal 136-145 [facility] Comment on above: Performed By: #### B DATA ENTRY SUPERVISOR, CMADM, CMP #### [facility] [address] [place] [address] [address] Kasia Nath Urea nitrogen [Mass/Vol] 29.0 mg/dL Critically high 7.0-18.0 [facility] Comment on above: Performed By: #### B DATA ENTRY SUPERVISOR, CMADM, CMP #### [facility] [address] [place], [place] [address] Dr. Kasia Nath Urea nitrogen/Creatinine [Mass ratio] 24.4 mg/mg Normal [facility] Comment on above: Performed By: #### B DATA ENTRY SUPERVISOR, CMADM, CMP #### [facility] [address] [place] [address] [address] Kasia Nath TROPONIN, HIGH SENSITIVITYon 01-05-2023 HSTROP 18.4 pg/mL Normal 4.0-51.3 [facility] Comment on above: Result Comment: CUT- OFF POINTS HAVE BEEN ESTABLISHED BASED ON THE FOURTH UNIVERSAL DEFINITIONS OF MYOCARDIAL INFARCTION. THE UPPER REFERENCE LIMIT (URL) OF TROPONIN, DEFINED THE 99TH PERCENTILE OF cTnI DISTRIBUTION IN A REFERENCE POPULATION, HAS BEEN CONFIRMED THE DECISION THRESHOLD FOR CA DIAGNOSIS. Performed By: #### H STROPN ####[facility] [address] [place], [place] [address]VfDr. Kasia Nath XR CHEST 1 Von 01-05-2023 [...] BIN ROJAS Date: 2023-01-05 04:39 Normal [facility] BNPon 01-02-2023 Natriuretic peptide B (Bld) [Mass/Vol] 2583.0 pg/mL Critically high <=1,800.0 [facility] Comment on above: Performed By: #### B DATA ENTRY SUPERVISOR, CMP ####[facility] [address] [place], [place] [address]SmDr. Kasia Nath CBC AUTO DIFFon 01-02-2023 BASO # 0.1 103/ul Normal 0.0-0.1 [facility] Comment on above: Performed By: #### P OCGLUC #### [facility] [address] [place] [address] [address] Kasia Nath Basophils/100 WBC (Bld) 0.9 % Normal 0.2-2.0 [facility] Comment on above: Performed By: #### P OCGLUC #### [facility] [address] [place] [address] [address] Kasia Nath EO # 0.2 103/ul Normal 0.0-0.7 [facility] Comment on above: Performed By: #### P OCGLUC #### [facility] [address] [place] [address] [address] Kasia Nath Eosinophils/100 WBC (Bld) 2.3 % Normal 0.9-7.0 [facility] Comment on above: Performed By: #### P OCGLUC #### [facility] [address] [place] [address] [address] Kasia Nath Erythrocyte distribution width (RBC) [Ratio] 13.8 % Normal 11.0-15.0 [facility] Comment on above: Performed By: #### P OCGLUC #### [facility] [address] [place] [address] [address] Kasia Nath Hematocrit (Bld) [Volume fraction] 35.5 % Critically low 36.0-48.0 [facility] Comment on above: Performed By: #### P OCGLUC #### [facility] [address] [place] [address] [address] Kasia Nath Hemoglobin (Bld) [Mass/Vol] 11.6 g/dL Critically low 12.0-16.0 [facility] Comment on above: Performed By: #### P OCGLUC #### [facility] [address] [place] [address] [address] Kasia Nath IG # 0.02 10e3/ul Normal 0.00-0.03 [facility] Comment on above: Performed By: #### P OCGLUC #### [facility] [address] [place] [address] [address] Kasia Nath IG % 0.3 % Normal 0.0-0.5 [facility] Comment on above: Performed By: #### P OCGLUC #### [facility] [address] [place] [address] [address] Kasia Nath LYMPH # 2.0 103/ul Normal 1.2-3.8 [facility] Comment on above: Performed By: #### P OCGLUC #### [facility] [address] [place] [address] Dr. Kasia Nath Lymphocytes/100 WBC (Bld) 24.8 % Normal 20.5-60.0 [facility] Comment on above: Performed By: #### P OCGLUC #### [facility] [address] [place] [address] Dr. Kasia Nath MANUAL DIFF REQ NO Normal [facility] Comment on above: Performed By: #### P OCGLUC #### [facility] [address] [place] [address] Dr. Kasia Nath MCH (RBC) [Entitic mass] 28.7 pg Normal 26.7-34.0 [facility] Comment on above: Performed By: #### P OCGLUC #### [facility] [address] [place] [address] Dr. Kasia Nath MCHC (RBC) [Mass/Vol] 32.7 g/dL Normal 29.9-35.2 [facility] Comment on above: Performed By: #### P OCGLUC #### [facility] [address] [place] [address] Dr. Kasia Nath MCV (RBC) [Entitic vol] 87.9 fL Normal 81.0-99.0 [facility] Comment on above: Performed By: #### P OCGLUC #### [facility] [address] [place] [address] Dr. Kasia Nath MONO # 0.8 103/ul Normal 0.3-0.8 [facility] Comment on above: Performed By: #### P OCGLUC #### [facility] [address] [place] [address] [address] Kasia Nath Monocytes/100 WBC (Bld) 9.6 % Normal 1.7-12.0 [facility] Comment on above: Performed By: #### P OCGLUC #### [facility] [address] [place] [address] [address] Kasia Nath NEUT # 5.0 103/ul Normal 1.4-6.5 [facility] Comment on above: Performed By: #### P OCGLUC #### [facility] [address] [place] [address] [address] Kasia Nath Neutrophils/100 WBC (Bld) 62.1 % Normal 43.0-75.0 [facility] Comment on above: Performed By: #### P OCGLUC #### [facility] [address] [place] [address] [address] Kasia Nath Platelet mean volume (Bld) [Entitic vol] 10.7 fL Normal 9.5-13.5 [facility] Comment on above: Performed By: #### P OCGLUC #### [facility] [address] [place] [address] [address] Kasia Nath PLT 204 103/ul Normal 150-450 [facility] Comment on above: Performed By: #### P OCGLUC #### [facility] [address] [place] [address] [address] Kasia Nath RBC 4.04 106/ul Critically low 4.20-5.40 [facility] Comment on above: Performed By: #### P OCGLUC #### [facility] [address] [place] [address] [address] Kasia Nath WBC 8.0 103/ul Normal 4.0-11.0 [facility] Comment on above: Performed By: #### P OCGLUC #### [facility] [address] [place] [address] [address] Kasia Nath GLYCOHEMOGLOBIN A1Con 2022 ADA RECOMMENDATION SEE BELOW Normal [facility] Comment on above: Result Comment: ADA RECOMMENDED LIMIT 4.0 - 6.0 ADA THERAPEUTIC TARGET < 7.0 ACTION SUGGESTED > 7.0 Performed By: #### A 1C ####[facility] [address] [place] [address]DrDoreen Nath Glucose [Mass/Vol] 298 mg/dL Normal [facility] Comment on above: Performed By: #### A 1C ####[facility] [address] [place] [address]DrDoreen Nath HbA1c (Bld) [Mass fraction] 12.0 % Critically high 4.5-6.2 [facility] Comment on above: Performed By: #### A 1C ####[facility] [address] [place] [address]DrDoreen Nath POINT OF CARE GLUCOSEon 12-14 Glucose [Mass/Vol] 227 mg/dL Critically high 74-106 [facility] Comment on above: Performed By: #### C BC #### [facility] [address] [place] [address] [address] Kasia Nath Glucose [Mass/Vol] 214 mg/dL Critically high 74-106 [facility] Comment on above: Performed By: #### C BC #### [facility] [address] [place] [address] [address] Kasia Nath PROF 14(COMP METB)on 023 Albumin [Mass/Vol] 2.6 g/dL Critically low 3.4-5.0 [facility] Comment on above: Performed By: #### B DATA ENTRY SUPERVISOR, CMP ####[facility] [address] [place] [address]DrDoreen Nath Albumin/Globulin [Mass ratio] 0.6 {ratio} Normal [facility] Comment on above: Performed By: #### B DATA ENTRY SUPERVISOR, CMP ####[facility] [address] [place] [address]DrDoreen Nath ALP [Catalytic activity/Vol] 94 U/L Normal 46-116 [facility] Comment on above: Performed By: #### B DATA ENTRY SUPERVISOR, CMP ####[facility] [address] [place] [address]Dr. Kasia Nath ALT [Catalytic activity/Vol] 16 U/L Normal 14-59 [facility] Comment on above: Performed By: #### B DATA ENTRY SUPERVISOR, CMP ####[facility] [address] [place], [place] [address]Dr. Kasia Nath Anion gap [Moles/Vol] 10.6 mmol/L Normal e [facility] Comment on above: Performed By: #### B DATA ENTRY SUPERVISOR, CMP ####[facility] [address] [place], [place] [address]Dr. Kasia Nath AST [Catalytic activity/Vol] 15 U/L Normal 15-37 [facility] Comment on above: Performed By: #### B DATA ENTRY SUPERVISOR, CMP ####[facility] [address] [place], [place] [address]Dr. Kasia Nath Bilirubin [Mass/Vol] 0.8 mg/dL Normal 0.2-1.0 [facility] Comment on above: Performed By: #### B DATA ENTRY SUPERVISOR, CMP ####[facility] [address] [place], [place] [address]Dr. Kasia Nath Calcium [Mass/Vol] 8.5 mg/dL Normal 8.5-10.1 [facility] Comment on above: Performed By: #### B DATA ENTRY SUPERVISOR, CMP ####[facility] [address] [place], [place] [address]Dr. Kasia Nath Chloride [Moles/Vol] 102 mmol/L Normal 98-107 [facility] Comment on above: Performed By: #### B DATA ENTRY SUPERVISOR, CMP ####[facility] [address] [place], [place] [address]Dr. Kasia Nath CO2 [Moles/Vol] 30.2 mmol/L Normal 21.0-32.0 [facility] Comment on above: Performed By: #### B DATA ENTRY SUPERVISOR, CMP ####[facility] [address] [place], [place] [address]Dr. Kasia Nath Creatinine [Mass/Vol] 0.94 mg/dL Normal 0.55-1.02 [facility] Comment on above: Performed By: #### B DATA ENTRY SUPERVISOR, CMP ####[facility] [address] [place] [id number]. Kasia Nath EGFR-AF EQUATORIAL GUINEAN >60 Normal >=60 [facility] Comment on above: Performed By: #### B DATA ENTRY SUPERVISOR, CMP ####[facility] [address] [place] [id number]. Kasia Nath EGFR-NON AF EQUATORIAL GUINEAN 58 mL/min/1.73m2 Critically low >=60 [facility] Comment on above: Performed By: #### B DATA ENTRY SUPERVISOR, CMP ####[facility] [address] [place] [id number]. Kasia Nath Globulin (S) [Mass/Vol] 4.0 g/dL Normal [facility] Comment on above: Performed By: #### B DATA ENTRY SUPERVISOR, CMP ####[facility] [address] [place] [address]Dr. Kasia Nath Glucose [Mass/Vol] 150 mg/dL Critically high 74-106 [facility] Comment on above: Performed By: #### B DATA ENTRY SUPERVISOR, CMP ####[facility] [address] [place], [place] [address]Dr. Kasia Nath Potassium [Moles/Vol] 3.8 mmol/L Normal 3.5-5.1 [facility] Comment on above: Performed By: #### B DATA ENTRY SUPERVISOR, CMP ####[facility] [address] [place] [id number]. Kasia Nath Protein [Mass/Vol] 6.6 g/dL Normal 6.4-8.2 [facility] Comment on above: Performed By: #### B DATA ENTRY SUPERVISOR, CMP ####[facility] [address] [place] [address]Dr. Kasia Nath Sodium [Moles/Vol] 139 mmol/L Normal 136-145 [facility] Comment on above: Performed By: #### B DATA ENTRY SUPERVISOR, CMP ####[facility] [address] [place] [address]Dr. Kasia Nath Urea nitrogen [Mass/Vol] 24.0 mg/dL Critically high 7.0-18.0 [facility] Comment on above: Performed By: #### B DATA ENTRY SUPERVISOR, CMP ####[facility] [address] [place] [id number]. Kasia Nath Urea nitrogen/Creatinine [Mass ratio] 25.5 mg/mg Normal [facility] Comment on above: Performed By: #### B DATA ENTRY SUPERVISOR, CMP ####[facility] [address] [place] [id number]. Kasia Nath BNPon 01-01-2023 Natriuretic peptide B (Bld) [Mass/Vol] 1419.0 pg/mL Normal <=1,800.0 [facility] Comment on above: Performed By: #### B DATA ENTRY SUPERVISOR #### [facility] [address] [place] [address] [address] Kasia Nath CARDIAC EMERY 3-6on 3 CK [Catalytic activity/Vol] 80 U/L Normal 26-192 [facility] Comment on above: Performed By: #### P OCGLUC #### [facility] [address] [place] [address] Dr. Kasia Nath CK.MB [Mass/Vol] 1.85 ng/mL Normal <=3.60 [facility] Comment on above: Performed By: #### P OCGLUC #### [facility] [address] [place] [address] Dr. Kasia Nath HSTROP 13.2 pg/mL Normal 4.0-51.3 [facility] Comment on above: Result Comment: CUT- OFF POINTS HAVE BEEN ESTABLISHED BASED ON THE FOURTH UNIVERSAL DEFINITIONS OF MYOCARDIAL INFARCTION. THE UPPER REFERENCE LIMIT (URL) OF TROPONIN, DEFINED THE 99TH PERCENTILE OF cTnI DISTRIBUTION IN A REFERENCE POPULATION, HAS BEEN CONFIRMED THE DECISION THRESHOLD FOR CA DIAGNOSIS. Performed By: #### P OCGLUC #### [facility] [address] [place] [address] [address] Kasia Nath CK [Catalytic activity/Vol] 73 U/L Normal 26-192 [facility] Comment on above: Performed By: #### P OCGLUC #### [facility] [address] [place] [address] Dr. Kasia Nath CK.MB [Mass/Vol] 1.71 ng/mL Normal <=3.60 [facility] Comment on above: Performed By: #### P OCGLUC #### [facility] [address] [place] [address] Dr. Kasia Nath HSTROP 13.6 pg/mL Normal 4.0-51.3 [facility] Comment on above: Result Comment: CUT- OFF POINTS HAVE BEEN ESTABLISHED BASED ON THE FOURTH UNIVERSAL DEFINITIONS OF MYOCARDIAL INFARCTION. THE UPPER REFERENCE LIMIT (URL) OF TROPONIN, DEFINED THE 99TH PERCENTILE OF cTnI DISTRIBUTION IN A REFERENCE POPULATION, HAS BEEN CONFIRMED THE DECISION THRESHOLD FOR CA DIAGNOSIS. Performed By: #### P OCGLUC #### [facility] [address] [place] [address] [address] Kasia Nath CARDIAC EMERY ADMITon 023 CK [Catalytic activity/Vol] 71 U/L Normal 26-192 [facility] Comment on above: Performed By: #### C BC #### [facility] [address] [place] [address] Dr. Kasia Nath CK.MB [Mass/Vol] 1.69 ng/mL Normal <=3.60 [facility] Comment on above: Performed By: #### C BC #### [facility] [address] [place] [address] Dr. Kasia Nath HSTROP 13.0 pg/mL Normal 4.0-51.3 [facility] Comment on above: Result Comment: CUT- OFF POINTS HAVE BEEN ESTABLISHED BASED ON THE FOURTH UNIVERSAL DEFINITIONS OF MYOCARDIAL INFARCTION. THE UPPER REFERENCE LIMIT (URL) OF TROPONIN, DEFINED THE 99TH PERCENTILE OF cTnI DISTRIBUTION IN A REFERENCE POPULATION, HAS BEEN CONFIRMED THE DECISION THRESHOLD FOR CA DIAGNOSIS. Performed By: #### C BC #### [facility] [address] [place] [address] Dr. Kasia Nath GRETTA 75 ng/mL Normal 9-82 [facility] Comment on above: Performed By: #### C BC #### [facility] [address] [place] [address] Dr. Kasia Nath CBC AUTO DIFFon 01-01-2023 BASO # 0.1 103/ul Normal 0.0-0.1 [facility] Comment on above: Performed By: #### C BC #### [facility] [address] [place] [address] Dr. Kasia Nath Basophils/100 WBC (Bld) 1.1 % Normal 0.2-2.0 [facility] Comment on above: Performed By: #### C BC #### [facility] [address] [place] [address] Dr. Kasia Nath EO # 0.2 103/ul Normal 0.0-0.7 [facility] Comment on above: Performed By: #### C BC #### [facility] [address] [place] [address] Dr. Kasia Nath Eosinophils/100 WBC (Bld) 2.9 % Normal 0.9-7.0 [facility] Comment on above: Performed By: #### C BC #### [facility] [address] [place] [address] Dr. Kasia Nath Erythrocyte distribution width (RBC) [Ratio] 13.8 % Normal 11.0-15.0 [facility] Comment on above: Performed By: #### C BC #### [facility] [address] [place] [address] Dr. Kasia Nath Hematocrit (Bld) [Volume fraction] 36.2 % Normal 36.0-48.0 [facility] Comment on above: Performed By: #### C BC #### [facility] [address] [place] [address] Dr. Kasia Nath Hemoglobin (Bld) [Mass/Vol] 12.1 g/dL Normal 12.0-16.0 [facility] Comment on above: Performed By: #### C BC #### [facility] [address] [place] [address] Dr. Kasia Nath IG # 0.02 10e3/ul Normal 0.00-0.03 [facility] Comment on above: Performed By: #### C BC #### [facility] [address] [place] [address] Dr. Kasia Nath IG % 0.3 % Normal 0.0-0.5 [facility] Comment on above: Performed By: #### C BC #### [facility] [address] [place] [address] Dr. Kasia Nath LYMPH # 1.5 103/ul Normal 1.2-3.8 [facility] Comment on above: Performed By: #### C BC #### [facility] [address] [place] [address] Dr. Kasia Nath Lymphocytes/100 WBC (Bld) 19.9 % Critically low 20.5-60.0 [facility] Comment on above: Performed By: #### C BC #### [facility] [address] [place] [address] Dr. Kasia Nath MANUAL DIFF REQ NO Normal [facility] Comment on above: Performed By: #### C BC #### [facility] [address] [place] [address] Dr. Kasia Nath MCH (RBC) [Entitic mass] 29.7 pg Normal 26.7-34.0 [facility] Comment on above: Performed By: #### C BC #### [facility] [address] [place] [address] Dr. Kasia Nath MCHC (RBC) [Mass/Vol] 33.4 g/dL Normal 29.9-35.2 [facility] Comment on above: Performed By: #### C BC #### [facility] [address] [place] [address] Dr. Kasia Nath MCV (RBC) [Entitic vol] 88.9 fL Normal 81.0-99.0 [facility] Comment on above: Performed By: #### C BC #### [facility] [address] [place] [address] Dr. Kasia Nath MONO # 0.6 103/ul Normal 0.3-0.8 [facility] Comment on above: Performed By: #### C BC #### [facility] [address] [place] [address] Dr. Kasia Nath Monocytes/100 WBC (Bld) 8.0 % Normal 1.7-12.0 [facility] Comment on above: Performed By: #### C BC #### [facility] [address] [place] [address] [address] Kasia Nath NEUT # 5.1 103/ul Normal 1.4-6.5 [facility] Comment on above: Performed By: #### C BC #### [facility] [address] [place], [place] [address] Dr. Kasia Nath Neutrophils/100 WBC (Bld) 67.8 % Normal 43.0-75.0 [facility] Comment on above: Performed By: #### C BC #### [facility] [address] [place] [address] Dr. Kasia Nath Platelet mean volume (Bld) [Entitic vol] 10.4 fL Normal 9.5-13.5 [facility] Comment on above: Performed By: #### C BC #### [facility] [address] [place] [address] Dr. Kasia Nath PLT 200 103/ul Normal 150-450 [facility] Comment on above: Performed By: #### C BC #### [facility] [address] [place] [address] Dr. Kasia Nath RBC 4.07 106/ul Critically low 4.20-5.40 [facility] Comment on above: Performed By: #### C BC #### [facility] [address] [place] [address] Dr. Kasia Nath WBC 7.5 103/ul Normal 4.0-11.0 [facility] Comment on above: Performed By: #### C BC #### [facility] [address] [place] [address] CHEST WO CONon [...] two extremes (Agatston score 101-1000). [email or web address]://pubs.rsna.org/do i/abs/[email or web address] Electronically authenticated by: RENETTA MICHAELS Date: 2023-01-01 14:55 Normal [facility] Covid-19 PCR (CVDTBH)on 12-14 SARS-CoV-2 (COVID-19) RNA FERN+probe Ql (Unsp spec) Not detected Normal NOT DETECTED [facility] Comment on above: Result Comment: [...] for this test is supported by the Sterile Processing Technologist of Health and Human Service's declaration that [...] longer be used). Performed By: #### [facility] #### [facility] [address] [place] [address] [address] Kasia Nath ECHO LIMITED STUDYon 023 ECHO LIMITED STUDY Patient: SAIMA CALL Exam Date: 01/01/2023 : 1945 Gender:F Ordering : MARTINE GUERRERO . Admission #: [id number] Family : Order #: [id number] CLICK HERE TO VIEW EXAM ECHOCARDIOGRAM REPORT [...] Kaplan M.D. on 01/01/2023 at 13:19 Normal [facility] GLYCOHEMOGLOBIN A1Con 2022 ADA RECOMMENDATION SEE BELOW Normal [facility] Comment on above: Result Comment: ADA RECOMMENDED LIMIT 4.0 - 6.0 ADA THERAPEUTIC TARGET < 7.0 ACTION SUGGESTED > 7.0 Performed By: #### P OCGLUC #### [facility] [address] [place] [address] [address] Kasia Nath Glucose [Mass/Vol] 318 mg/dL Normal [facility] Comment on above: Performed By: #### P OCGLUC #### [facility] [address] [place] [address] [address] Kasia Nath HbA1c (Bld) [Mass fraction] 12.7 % Critically high 4.5-6.2 [facility] Comment on above: Performed By: #### P OCGLUC #### [facility] [address] [place] [address] [address] Kasia Nath POINT OF CARE GLUCOSEon 12-14 Glucose [Mass/Vol] 162 mg/dL Critically high -106 [facility] Comment on above: Performed By: #### P OCGLUC ####[facility] [address] [place] [address]Dr. Kasia Nath Glucose [Mass/Vol] 213 mg/dL Critically high -106 [facility] Comment on above: Performed By: #### P OCGLUC ####[facility] [address] [place] [address]Dr. Kasia Nath Glucose [Mass/Vol] 248 mg/dL Critically high -106 [facility] [facility] Comment on above: Performed By: #### P OCGLUC #### [facility] [address] [address] [address] Kasia Nath PROF CHEM 8 (BAS METB)on Anion gap [Moles/Vol] 11.8 mmol/L Normal [facility] Comment on above: Performed By: #### C BC #### [facility] [address] [address] [address] Kasia Nath Calcium [Mass/Vol] 8.4 mg/dL Critically low 8.5-10.1 [facility] Comment on above: Performed By: #### C BC #### [facility] [address] [address] [address] Kasia Nath Chloride [Moles/Vol] 102 mmol/L Normal 98-107 [facility] Comment on above: Performed By: #### C BC #### [facility] [address] [address] [address] Kasia Nath CO2 [Moles/Vol] 28.4 mmol/L Normal 21.0-32.0 [facility] Comment on above: Performed By: #### C BC #### [facility] [address] [place] [address] Dr. Kasia Nath Creatinine [Mass/Vol] 1.09 mg/dL Critically high 0.55-1.02 [facility] Comment on above: Performed By: #### C BC #### [facility] [address] [place] [address] Dr. Kasia Nath EGFR-AF EQUATORIAL GUINEAN 59 mL/min/1.73m2 Critically low >=60 [facility] Comment on above: Performed By: #### C BC #### [facility] [address] [place] [address] Dr. Kasia Nath EGFR-NON AF EQUATORIAL GUINEAN 49 mL/min/1.73m2 Critically low >=60 [facility] Comment on above: Performed By: #### C BC #### [facility] [address] [address] [address] Kasia Nath Glucose [Mass/Vol] 247 mg/dL Critically high 74-106 [facility] Comment on above: Performed By: #### C BC #### [facility] [address] [place] [address] Dr. Kasia Nath Potassium [Moles/Vol] 4.2 mmol/L Normal 3.5-5.1 [facility] Comment on above: Performed By: #### C BC #### [facility] [address] [place] [address] Dr. Kasia Nath Sodium [Moles/Vol] 138 mmol/L Normal 136-145 [facility] Comment on above: Performed By: #### C BC #### [facility] [address] [address] [address] Kasia Nath Urea nitrogen [Mass/Vol] 28.0 mg/dL Critically high 7.0-18.0 [facility] Comment on above: Performed By: #### C BC #### [facility] [id number] Kasia Nath Urea nitrogen/Creatinine [Mass ratio] 25.7 mg/mg Normal [facility] Comment on above: Performed By: #### C BC #### [facility] [id number] Kasia Nath XR CHEST 1 Von [...] by: Miranda ALVAREZ Date: 2023-01-01 05:38 Normal [facility] ECHOCARDIO M/2D COMPLETEon 1 11-15-2021 ECHOCARDIO M/2D COMPLETE Patient: JOE CALL Exam Date: 09/15/2022 : 1945 Gender:F Ordering : Y[facility]EL P[facility] Admission #: [id number] Family : DR SHANTEL STEVEN M.D. Order #: [id number] CLICK HERE TO VIEW EXAM ECHOCARDIOGRAM REPORT [...] on 09/15/2022 at 18:17 Normal [facility] GI PANEL (PCR)on 05-02-2022 Adenovirus F 40/41 Not detected Normal NOT DETECTED [facility] Comment on above: Performed By: #### P OCGLUC #### [facility] [address] [place] [address] Dr. Kasia Nath Astrovirus Not detected Normal NOT DETECTED [facility] Comment on above: Performed By: #### P OCGLUC #### [facility] [address] [place] [address] Dr. Kasia Nath C. Diff toxin A/B Not detected Normal NOT DETECTED [facility] Comment on above: Performed By: #### P OCGLUC #### [facility] [address] [place] [address] Dr. Kasia Nath Campylobacter Not detected Normal NOT DETECTED [facility] Comment on above: Performed By: #### P OCGLUC #### [facility] [address] [place] [address] Dr. Kasia Nath Cryptosporidium Not detected Normal NOT DETECTED [facility] Comment on above: Performed By: #### P OCGLUC #### [facility] [address] [place] [address] Dr. Kasia Nath Cyclos. Cayetanensis Not detected Normal NOT DETECTED [facility] Comment on above: Performed By: #### P OCGLUC #### [facility] [address] [place] [address] Dr. Kasia Nath E. Coli O157 Not Applicable Normal Not Applicable [facility] Comment on above: Performed By: #### P OCGLUC #### [facility] [address] [place] [address] Dr. Kasia Nath E. histolytica Not detected Normal NOT DETECTED [facility] Comment on above: Performed By: #### P OCGLUC #### [facility] [address] [place] [address] Dr. Kasia Nath EAEC Not detected Normal NOT DETECTED [facility] Comment on above: Performed By: #### P OCGLUC #### [facility] [address] [place] [address] Dr. Kasia Nath EIEC Not detected Normal NOT DETECTED [facility] Comment on above: Performed By: #### P OCGLUC #### [facility] [address] [place] [address] Dr. Kasia Nath EPEC Detected Abnormal NOT DETECTED [facility] Comment on above: Performed By: #### P OCGLUC #### [facility] [address] [place] [address] Dr. Kasia Nath ETEC Not detected Normal NOT DETECTED [facility] Comment on above: Performed By: #### P OCGLUC #### [facility] [address] [place] [address] Dr. Kasia Nath G. Lamblia Not detected Normal NOT DETECTED [facility] Comment on above: Performed By: #### P OCGLUC #### [facility] [address] [place] [address] Dr. Kasia PAKL CONTROLS PASSED Normal [facility] Comment on above: Performed By: #### P OCGLUC #### [facility] [address] [place] [address] Dr. Kasia MOYERNL JUNO HEADER GI PANEL BACTERIA Normal [facility] Comment on above: Performed By: #### P OCGLUC #### [facility] [address] [address] [address] Kasia GE ECOLI GI PANEL DIARRHEAGEN IC E.COLI / SHIGELLA Normal [facility] Comment on above: Performed By: #### P OCGLUC #### [facility] [address] [address] [address] Kasia GE INFO SEE BELOW Normal [facility] Comment on above: Result Comment: EAEC - Enteroaggregative E. Coli EPEC- Enteropathogenic E. Coli ETEC- Enterotoxigenic E. Coli lt/st STEC- Shigella-like toxin-producing E. Coli stx1/stx2 EIEC- Shigella/Enteroinvasive E. Coli Performed By: #### P OCGLUC #### [facility] [address] [address] [address] Kasia GE PARASITES GI PANEL PARASITES Normal [facility] Comment on above: Performed By: #### P OCGLUC #### [facility] [address] [address] [address] Kasia GE VIRUS GI PANEL VIRUSES Normal [facility] Comment on above: Performed By: #### P OCGLUC #### [facility] [address] [address] [address] Kasia Nath Norovirus GI/GII Not detected Normal NOT DETECTED [facility] Comment on above: Performed By: #### P OCGLUC #### [facility] [address] [address] [address] Kasia Nath P. Shigelloides Not detected Normal NOT DETECTED [facility] Comment on above: Performed By: #### P OCGLUC #### [facility] [address] [address] [address] Kasia Nath Rotavirus A Not detected Normal NOT DETECTED [facility] Comment on above: Performed By: #### P OCGLUC #### [facility] [address] [address] [address] Kasia Nath Salmonella Not detected Normal NOT DETECTED [facility] Comment on above: Performed By: #### P OCGLUC #### [facility] [address] [address] [address] Kasia Nath Sapovirus Not detected Normal NOT DETECTED [facility] Comment on above: Performed By: #### P OCGLUC #### [facility] [address] [address] [address] Kasia Nath STEC Not detected Normal NOT DETECTED [facility] Comment on above: Performed By: #### P OCGLUC #### [facility] [address] [address] [address] Kasia Nath Vibrio Not detected Normal NOT DETECTED [facility] Comment on above: Performed By: #### P OCGLUC #### [facility] [address] [address] [address] Kasia Nath Vibrio Cholera Not detected Normal NOT DETECTED [facility] Comment on above: Performed By: #### P OCGLUC #### [facility] [address] [place] [address] Dr. Kasia Nath Y. Enterocolitica Not detected Normal NOT DETECTED [facility] Comment on above: Performed By: #### P OCGLUC #### [facility] [address] [place] [address] Dr. Kasia Nath OCC BLD IMMUNO SCREENon 04-13 OCCULT BLOOD Negative Normal NEGATIVE [facility] Comment on above: Performed By: #### C BC #### [facility] [address] [place] [address] Dr. Kasia Nath XR knee BI 4Von 08-25-2021 XR knee BI 4V [facility] [employer] Other XR knee BI 4V [facility] [employer] Other XR knee BI 4V [address] [place] [address] [employer] Other XR knee BI 4V [address] [employer] Other XR knee BI 4V XRay Report [employer] Other XR knee BI 4V Signed [facility] [employer] Other XR knee BI 4V Patient: Joe Call MR#: [id number] [employer] Other XR knee BI 4V 0 [employer] Other XR knee BI 4V : 1945 Acct:[id number] [employer] Other XR knee BI 4V Age/Sex: 76 / F ADM Date: 08/25/21 [employer] Other XR knee BI 4V Loc: [facility]XD Room: Type : REG CLI [employer] Other XR knee BI 4V Attending Dr: Akbar Cui II, MD [employer] Other XR knee BI 4V Ordering Provider: Akbar Cui MD [employer] Other XR knee BI 4V Date of Service: 08/25/21 [employer] Other XR knee BI 4V XR/XR knee BI 4V: Pain in right knee;Pain in left knee [employer] Other XR knee BI 4V Copies to: Akbar Cui MD [employer] Other XR knee BI 4V XR knee BI 4V 2020 1:32 PM [employer] Other XR knee BI 4V SIGNS AND SYMPTOMS: Bilateral knee pain with decreased range of motion, weakness [employer] Other XR knee BI 4V PROTOCOL: Frontal, lateral, and sunrise views of the bilateral knees [employer] Other XR knee BI 4V COMPARISON: None [employer] Other XR knee BI 4V FINDINGS: [employer] Other XR knee BI 4V There is mild narrow ing of the medial weightbearing joint spaces. There is mild patellofemoral [employer] Other XR knee BI 4V joint space loss. Th ere is spurring of the poles of the patella bilaterally. There is mild lateral [employer] Other XR knee BI 4V patellar subluxation bilaterally. There is no evidence of acute displaced fracture. Well-corticated [employer] Other XR knee BI 4V ossific structures o r separate from the right medial weightbearing joint space. This may represent a [employer] Other XR knee BI 4V calcified loose bodies. [employer] Other XR knee BI 4V X R/XR knee BI 4V [employer] Other XR knee BI 4V IMPRESSION: [employer] Other XR knee BI 4V Degenerative changes are noted are noted bilaterally, as above. [employer] Other XR knee BI 4V Well-corticated ossi fic structures or separate from the right medial weightbearing joint space. This [employer] Other XR knee BI 4V may represent a calcified loose bodies. [employer] Other XR knee BI 4V No acute displaced fracture. [employer] Other XR knee BI 4V There is mild latera l subluxation of the patella within the patellofemoral joint space bilaterally. [employer] Other XR knee BI 4V Impression dictated by: Emery Lobo M.D.08/25/2021 2:51 PM [employer] Other XR knee BI 4V Dictation Location: [address] [address] [employer] Other XR knee BI 4V Transcribed By: RAFAEL 08/25/21 1451 [employer] Other XR knee BI 4V Dictated By: Emery Lobo II, MD 08/25/21 1447 [employer] Other XR knee BI 4V Signed By: [employer] Other XR knee BI 4V 08/25/21 145 [facility] [employer] Other XR pelvis 1-2Von 08-25-2021 XR pelvis 1-2V XR/XR pelvis 1-2V: Pain in right knee;Pain in left knee [employer] Other XR pelvis 1-2V XR pelvis 1-2V 08/25/2021 1:32 PM [employer] Other XR pelvis 1-2V SIGNS AND SYMPTOMS: Bilateral generalized knee pain, limited range of motion with weakness [employer] Other XR pelvis 1-2V PROTOCOL: Frontal radiograph of the pelvis [employer] Other XR pelvis 1-2V There is mild narrow ing of the weightbearing joint spaces. Mild degenerative changes are noted in [employer] Other XR pelvis 1-2V the symphysis pubis. There is no evidence of fracture or dislocation. Vascular calcifications are [employer] Other XR pelvis 1-2V present in the pelvis. [employer] Other XR pelvis 1-2V X R/XR pelvis 1-2V [employer] Other XR pelvis 1-2V No fracture or dislocation. [employer] Other XR pelvis 1-2V Mild degenerative changes are noted in the joint space of the hips. [employer] Other XR pelvis 1-2V Impression dictated by: Emery Lobo M.D.08/25/2021 2:54 PM [employer] Other XR pelvis 1-2V Transcribed By: RAFAEL 08/25/21 [facility] [employer] Other XR pelvis 1-2V Dictated By: Emery Lobo II, MD 08/25/21 [facility] [employer] Other XR pelvis 1-2V 08/25/21 [facility]4 [facility] [employer] Other Vital Signs Date Time Vital Sign Value Performing Clinician Facility 07-20-2025 14:19-0400 Body height 165.1 cm Shantel Steven MD Work Phone: [facility] 07-20-2025 14:19-0400 Body mass index (BMI) [Ratio] 42.3 kg/m2 Shantel Steven MD Work Phone: [facility] 07-20-2025 14:19-0400 Body temperature 97.3 [degF] Shantel Steven MD Work Phone: [facility] 07-20-2025 14:19-0400 Body weight 115.21 kg Shantel Steven MD Work Phone: [facility] 07-20-2025 14:19-0400 Diastolic blood pressure 73 mm[Hg] Shantel Steven MD Work Phone: [facility] 07-20-2025 14:19-0400 Heart rate 72 /min Shantel Steven MD Work Phone: [facility] 07-20-2025 14:19-0400 SaO2% (BldA) [Mass fraction] 98 % Shantel Steven MD Work Phone: [facility] 07-20-2025 14:19-0400 Systolic blood pressure 170 mm[Hg] Shantel Steven MD Work Phone: [facility] 06-04-2025 10:170400 Body height 165.1 cm Shantel Steven MD Work Phone: [facility] 06-04-2025 10:17-0400 Body mass index (BMI) [Ratio] 43.9 kg/m2 Shantel Steven MD Work Phone: [facility] 06-04-2025 10:170400 Body weight 119.74 kg Shantel Steven MD Work Phone: [facility] 06-04-2025 10:17-0400 Diastolic blood pressure 71 mm[Hg] Shantel Steven MD Work Phone: [facility] 06-04-2025 10:17-0400 Heart rate 57 /min Shantel Steven MD Work Phone: [facility] 06-04-2025 10:17-0400 Systolic blood pressure 161 mm[Hg] Shantel Steven MD Work Phone: [facility] 05-21-2025 11:08-0400 Body height 165.1 cm Shantel Steven MD Work Phone: [facility] 05-21-2025 11:08-0400 Body mass index (BMI) [Ratio] 44.7 kg/m2 Shantel Steven MD Work Phone: [facility] 05-21-2025 11:08-0400 Body weight 122.07 kg Shantel Steven MD Work Phone: [facility] 05-21-2025 11:08-0400 Diastolic blood pressure 93 mm[Hg] Shantel Steven MD Work Phone: [facility] 05-21-2025 11:08-0400 Heart rate 70 /min Shantel Steven MD Work Phone: [facility] 05-21-2025 11:08-0400 Respiratory rate 14 /min Shantel Steven MD Work Phone: [facility] 05-21-2025 11:08-0400 SaO2% (BldA) [Mass fraction] 95 % Shantel Steven MD Work Phone: [facility] 05-21-2025 11:08-0400 Systolic blood pressure 180 mm[Hg] Shantel Steven MD Work Phone: [facility] 04-21-2025 14:20-0400 Body height 165.1 cm Shantel Steven MD Work Phone: [facility] 04-21-2025 14:20-0400 Body mass index (BMI) [Ratio] 42.4 kg/m2 Shantel Steven MD Work Phone: [facility] 04-21-2025 14:20-0400 Body weight 115.66 kg Shantel Steven MD Work Phone: [facility] 04-21-2025 14:20-0400 Diastolic blood pressure 80 mm[Hg] Shantel Steven MD Work Phone: [facility] 04-21-2025 14:20-0400 Heart rate 63 /min Shantel Steven MD Work Phone: [facility] 04-21-2025 14:20-0400 Systolic blood pressure 165 mm[Hg] Shantel Steven MD Work Phone: [facility] 04-16-2025 10:20-0400 Body height 165.1 cm Shantel Steven MD Work Phone: [facility] 04-16-2025 10:20-0400 Body mass index (BMI) [Ratio] 42.4 kg/m2 Shantel Steven MD Work Phone: [facility] 04-16-2025 10:20-0400 Body weight 115.66 kg Shantel Steven MD Work Phone: [facility] 04-16-2025 10:20-0400 Diastolic blood pressure 77 mm[Hg] Shantel Steven MD Work Phone: [facility] 04-16-2025 10:20-0400 Heart rate 63 /min Shantel Steven MD Work Phone: [facility] 04-16-2025 10:20-0400 Respiratory rate 12 /min Shantel Steven MD Work Phone: [facility] 04-16-2025 10:20-0400 SaO2% (BldA) [Mass fraction] 96 % Shantel Steven MD Work Phone: [facility] 04-16-2025 10:20-0400 Systolic blood pressure 137 mm[Hg] Shantel Steven MD Work Phone: [facility] 03-24-2025 13:57-0400 Body height 165.1 cm Shantel Steven MD Work Phone: [facility] 03-24-2025 13:57-0400 Body mass index (BMI) [Ratio] 42.3 kg/m2 Shantel Steven MD Work Phone: [facility] 03-24-2025 13:57-0400 Body weight 115.21 kg Shantel Steven MD Work Phone: [facility] 03-24-2025 13:57-0400 Diastolic blood pressure 76 mm[Hg] Shantel Steven MD Work Phone: [facility] 03-24-2025 13:57-0400 Heart rate 56 /min Shantel Steven MD Work Phone: [facility] 03-24-2025 13:57-0400 Systolic blood pressure 179 mm[Hg] Shantel Steven MD Work Phone: [facility] 03-12-2025 19:10-0400 Diastolic blood pressure 69 mm[Hg] Shantel Steven MD Work Phone: [facility] 03-12-2025 19:10-0400 Heart rate 57 /min Shantel Steven MD Work Phone: [facility] 03-12-2025 19:10-0400 Respiratory rate 18 /min Shantel Steven MD Work Phone: [facility] 03-12-2025 19:10-0400 SaO2% (BldA) [Mass fraction] 99 % Shantel Steven MD Work Phone: [facility] 03-12-2025 19:10-0400 Systolic blood pressure 164 mm[Hg] Shantel Steven MD Work Phone: [facility] 03-12-2025 13:45-0400 Body height 165.1 cm Shantel Steven MD Work Phone: [facility] 03-12-2025 13:45-0400 Body weight 114.7 kg Shantel Steven MD Work Phone: [facility] 03-12-2025 13:44-0400 Body temperature 97.6 [degF] Shantel Steven MD Work Phone: [facility] 03-10-2025 11:05-0400 Body height 165.1 cm [facility] 03-10-2025 11:05-0400 Body mass index (BMI) [Ratio] 41.1 kg/m2 [facility] 03-10-2025 11:05-0400 Body weight 112.1 kg [facility] 03-10-2025 11:05-0400 Diastolic blood pressure 70 mm[Hg] [facility] 03-10-2025 11:05-0400 Systolic blood pressure 145 mm[Hg] [facility] 02-19-2025 08:58-0400 Body height 165.1 cm [facility] 02-19-2025 08:58-0400 Body mass index (BMI) [Ratio] 41.1 kg/m2 [facility] 02-19-2025 08:58-0400 Body temperature 97.3 [degF] [facility] 02-19-2025 08:58-0400 Body weight 112.09 kg [facility] 02-19-2025 08:58-0400 Diastolic blood pressure 58 mm[Hg] [facility] 02-19-2025 08:58-0400 Heart rate 68 /min [facility] 02-19-2025 08:58-0400 Respiratory rate 18 /min [facility] 02-19-2025 08:58-0400 SaO2% (BldA) [Mass fraction] 96 % [facility] 02-19-2025 08:58-0400 Systolic blood pressure 147 mm[Hg] [facility] 02-09-2025 14:03-0400 Body height 165.1 cm [facility] 02-09-2025 14:03-0400 Body mass index (BMI) [Ratio] 42.5 kg/m2 [facility] 02-09-2025 14:03-0400 Body weight 116.11 kg [facility] 02-09-2025 14:03-0400 Diastolic blood pressure 78 mm[Hg] [facility] 02-09-2025 14:03-0400 Heart rate 79 /min [facility] 02-09-2025 14:03-0400 Respiratory rate 12 /min [facility] 02-09-2025 14:03-0400 Systolic blood pressure 185 mm[Hg] [facility] 01-14-2025 10:00-0500 Body height 165.1 cm Shantel Steven MD Work Phone: [facility] 01-14-2025 10:00-0500 Body mass index (BMI) [Ratio] 44.3 kg/m2 Shantel Steven MD Work Phone: [facility] 01-14-2025 10:00-0500 Body weight 120.88 kg Shantel Steven MD Work Phone: [facility] 01-14-2025 10:00-0500 Diastolic blood pressure 80 mm[Hg] Shantel Steven MD Work Phone: [facility] 01-14-2025 10:00-0500 Heart rate 66 /min Shantel Steven MD Work Phone: [facility] 01-14-2025 10:00-0500 SaO2% (BldA) [Mass fraction] 93 % Shantel Steven MD Work Phone: [facility] 01-14-2025 10:00-0500 Systolic blood pressure 176 mm[Hg] Shantel Steven MD Work Phone: [facility] 01-06-2025 15:22-0500 Body height 165.1 cm Shantel Steven MD Work Phone: [facility] 01-06-2025 15:22-0500 Body mass index (BMI) [Ratio] 44.7 kg/m2 Shantel Steven MD Work Phone: [facility] 01-06-2025 15:22-0500 Body weight 122.01 kg Shantel Steven MD Work Phone: [facility] 01-06-2025 15:22-0500 Diastolic blood pressure 83 mm[Hg] Shantel Steven MD Work Phone: [facility] 01-06-2025 15:22-0500 Heart rate 66 /min Shantel Steven MD Work Phone: [facility] 01-06-2025 15:22-0500 Systolic blood pressure 155 mm[Hg] Shantel Steven MD Work Phone: [facility] 12-26-2024 12:58-0500 Body height 165.1 cm Jorge Luis Tupa DO Work Phone: [facility] 12-26-2024 12:58-0500 Body mass index (BMI) [Ratio] 43.6 kg/m2 Jorge Luis Tupa DO Work Phone: [facility] 12-26-2024 12:58-0500 Body weight 118.84 kg Jorge Luis Tupa DO Work Phone: [facility] 12-26-2024 12:58-0500 Diastolic blood pressure 79 mm[Hg] Jorge Luis Tupa DO Work Phone: [facility] 12-26-2024 12:58-0500 Heart rate 92 /min Jorge Luis Tupa DO Work Phone: [facility] 12-26-2024 12:58-0500 SaO2% (BldA) [Mass fraction] 97 % Jorge Luis Tupa DO Work Phone: [facility] 12-26-2024 12:58-0500 Systolic blood pressure 175 mm[Hg] Jorge Luis Tupa DO Work Phone: [facility] 12-09-2024 13:33-0500 Body height 165.1 cm Jorge Luis Tupa DO Work Phone: [facility] 12-09-2024 13:33-0500 Body mass index (BMI) [Ratio] 43.4 kg/m2 Jorge Luis Tupa DO Work Phone: [facility] 12-09-2024 13:33-0500 Body weight 118.55 kg Jorge Luis Tupa DO Work Phone: [facility] 12-09-2024 13:33-0500 Diastolic blood pressure 83 mm[Hg] Jorge Luis Tupa DO Work Phone: [facility] 12-09-2024 13:33-0500 Heart rate 81 /min Jorge Luis Tupa DO Work Phone: [facility] 12-09-2024 13:33-0500 Respiratory rate 14 /min Jorge Luis Tupa DO Work Phone: [facility] 12-09-2024 13:33-0500 Systolic blood pressure 156 mm[Hg] Jorge Luis Tupa DO Work Phone: [facility] 11-11-2024 13:46-0500 Body height 165.1 cm Jorge Luis Tupa DO Work Phone: [facility] 11-11-2024 13:46-0500 Body mass index (BMI) [Ratio] 41.1 kg/m2 Jorge Luis Tupa DO Work Phone: [facility] 11-11-2024 13:46-0500 Body temperature 97.3 [degF] Jorge Luis Tupa DO Work Phone: [facility] 11-11-2024 13:46-0500 Body weight 112.03 kg Jorge Luis Tupa DO Work Phone: [facility] 11-11-2024 13:46-0500 Diastolic blood pressure 84 mm[Hg] Jorge Luis Tupa DO Work Phone: [facility] 11-11-2024 13:46-0500 Heart rate 95 /min Jorge Luis Tupa DO Work Phone: [facility] 11-11-2024 13:46-0500 Respiratory rate 16 /min Jorge Luis Tupa DO Work Phone: [facility] 11-11-2024 13:46-0500 SaO2% (BldA) [Mass fraction] 96 % Jorge Luis Tupa DO Work Phone: [facility] 11-11-2024 13:46-0500 Systolic blood pressure 145 mm[Hg] Jorge Luis Tupa DO Work Phone: [facility] 11-03-2024 11:43-0500 Body height 165.1 cm Jorge Luis Tupa DO Work Phone: [facility] 11-03-2024 11:43-0500 Body mass index (BMI) [Ratio] 41.1 kg/m2 Jorge Luis Tupa DO Work Phone: [facility] 11-03-2024 11:43-0500 Body weight 112.03 kg Jorge Luis Tupa DO Work Phone: [facility] 11-03-2024 11:43-0500 Diastolic blood pressure 70 mm[Hg] Jorge Luis Tupa DO Work Phone: [facility] 11-03-2024 11:43-0500 Heart rate 78 /min Jorge Luis Tupa DO Work Phone: [facility] 11-03-2024 11:43-0500 SaO2% (BldA) [Mass fraction] 97 % Jorge Luis Tupa DO Work Phone: [facility] 11-03-2024 11:43-0500 Systolic blood pressure 138 mm[Hg] Jorge Luis Tupa DO Work Phone: [facility] 10-25-2024 07:49-0500 Diastolic blood pressure 73 mm[Hg] Jorge Luis Tupa DO Work Phone: [facility] 10-25-2024 07:49-0500 Heart rate 85 /min Jorge Luis Tupa DO Work Phone: [facility] 10-25-2024 07:49-0500 Respiratory rate 18 /min Jorge Luis Tupa DO Work Phone: [facility] 10-25-2024 07:49-0500 SaO2% (BldA) [Mass fraction] 98 % Jorge Luis Tupa DO Work Phone: [facility] 10-25-2024 07:49-0500 Systolic blood pressure 135 mm[Hg] Jorge Luis Tupa DO Work Phone: [facility] 10-25-2024 05:58-0500 Body height 165.1 cm Jorge Luis Tupa DO Work Phone: [facility] 10-25-2024 05:58-0500 Body temperature 98 [degF] Jorge Luis Tupa DO Work Phone: [facility] 10-25-2024 05:58-0500 Body weight 122.92 kg Jorge Luis Tupa DO Work Phone: [facility] 10-22-2024 04:48-0500 Body height 165.1 cm Jorge Luis Tupa DO Work Phone: [facility] 10-22-2024 04:48-0500 Body temperature 98.5 [degF] Jorge Luis Tupa DO Work Phone: [facility] 10-22-2024 04:48-0500 Body weight 114.8 kg Jorge Luis Tupa DO Work Phone: [facility] 10-22-2024 04:48-0500 Diastolic blood pressure 68 mm[Hg] Jorge Luis Tupa DO Work Phone: [facility] 10-22-2024 04:48-0500 Heart rate 100 /min Jorge Luis Tupa DO Work Phone: [facility] 10-22-2024 04:48-0500 Respiratory rate 18 /min Jorge Luis Tupa DO Work Phone: [facility] 10-22-2024 04:48-0500 SaO2% (BldA) [Mass fraction] 97 % Jorge Luis Tupa DO Work Phone: [facility] 10-22-2024 04:48-0500 Systolic blood pressure 132 mm[Hg] Jorge Luis Tupa DO Work Phone: [facility] 10-20-2024 12:00-0500 Body temperature 97.4 [degF] Jorge Luis Tupa DO Work Phone: [facility] 10-20-2024 12:00-0500 Diastolic blood pressure 73 mm[Hg] Jorge Luis Tupa DO Work Phone: [facility] 10-20-2024 12:00-0500 Heart rate 98 /min Jorge Luis Tupa DO Work Phone: [facility] 10-20-2024 12:00-0500 Respiratory rate 20 /min Jorge Luis Tupa DO Work Phone: [facility] 10-20-2024 12:00-0500 SaO2% (BldA) [Mass fraction] 98 % Jorge Luis Tupa DO Work Phone: [facility] 10-20-2024 12:00-0500 Systolic blood pressure 116 mm[Hg] Jorge Luis Tupa DO Work Phone: [facility] 10-20-2024 05:57-0500 Body weight 110.9 kg Jorge Luis Tupa DO Work Phone: [facility] 10-17-2024 14:18-0500 Body height 165.1 cm Jorge Luis Tupa DO Work Phone: [facility] 10-01-2024 09:51-0500 Body height 165.1 cm Christel Chacon MD Work Phone: [facility] 10-01-2024 09:51-0500 Body mass index (BMI) [Ratio] 42.27 kg/m2 Christel Chacon MD Work Phone: [facility] 10-01-2024 09:51-0500 Body weight 115.21 kg Christel Chacon MD Work Phone: [facility] 10-01-2024 09:51-0500 Diastolic blood pressure 110 mm[Hg] Christel Chacon MD Work Phone: [facility] 10-01-2024 09:51-0500 Systolic blood pressure 138 mm[Hg] Christel Chacon MD Work Phone: [facility] 08-07-2024 10:04-0400 Body height 165.1 cm MD Shantel Steven Work Phone: [facility] 08-07-2024 10:04-0400 Body mass index (BMI) [Ratio] 43.1 kg/m2 MD Shantel Steven Work Phone: [facility] 08-07-2024 10:04-0400 Body weight 117.48 kg MD Shantel Steven Work Phone: [facility] 08-07-2024 10:04-0400 Diastolic blood pressure 69 mm[Hg] MD Shantel Steven Work Phone: [facility] 08-07-2024 10:04-0400 Heart rate 52 /min MD Shantel Steven Work Phone: [facility] 08-07-2024 10:04-0400 SaO2% (BldA) [Mass fraction] 93 % MD Shantel Steven Work Phone: [facility] 08-07-2024 10:04-0400 Systolic blood pressure 117 mm[Hg] MD Shantel Steven Work Phone: [facility] 07-22-2024 13:15-0400 Body height 165.1 cm Christel Chacon MD Work Phone: [facility] 07-22-2024 13:15-0400 Body mass index (BMI) [Ratio] 42.6 kg/m2 Christel Chacon MD Work Phone: [facility] 07-22-2024 13:15-0400 Body weight 116.12 kg Christel Chacon MD Work Phone: [facility] 07-22-2024 13:15-0400 Diastolic blood pressure 82 mm[Hg] Christel Chacon MD Work Phone: [facility] 07-22-2024 13:15-0400 Systolic blood pressure 130 mm[Hg] Christel Chacon MD Work Phone: [facility] 07-16-2024 10:20-0400 Body height 165.1 cm MD Shantel Steven Work Phone: [facility] 07-16-2024 10:20-0400 Body mass index (BMI) [Ratio] 43.1 kg/m2 MD Shantel Steven Work Phone: [facility] 07-16-2024 10:20-0400 Body weight 117.48 kg MD Shantel Steven Work Phone: [facility] 07-16-2024 10:20-0400 Diastolic blood pressure 80 mm[Hg] MD Shantel Steven Work Phone: [facility] 07-16-2024 10:20-0400 Heart rate 60 /min MD Shantel Steven Work Phone: [facility] 07-16-2024 10:20-0400 Systolic blood pressure 151 mm[Hg] MD Shantel Steven Work Phone: [facility] 07-10-2024 13:40-0400 Body height 165.1 cm Lizett Gillmor [employer] Work Phone: [facility] 07-10-2024 13:40-0400 Body mass index (BMI) [Ratio] 42.43 kg/m2 Lizett Gillmor [employer] Work Phone: [facility] 07-10-2024 13:40-0400 Body weight 115.67 kg Lizett Gillmor [employer] Work Phone: [facility] 07-10-2024 13:40-0400 Diastolic blood pressure 86 mm[Hg] Lizett Gillmor [employer] EN[employer]PER[employer] Work Phone: [facility] 07-10-2024 13:40-0400 Systolic blood pressure 132 mm[Hg] Lizett Gillmor [employer]PER[employer] Work Phone: [facility] 07-07-2024 11:41-0400 Body height 165.1 cm MD Shantel Steven Work Phone: [facility] 07-07-2024 11:41-0400 Body mass index (BMI) [Ratio] 42.4 kg/m2 MD Shantel Steven Work Phone: [facility] 07-07-2024 11:41-0400 Body weight 115.66 kg MD Shantel Steven Work Phone: [facility] 07-07-2024 11:41-0400 Diastolic blood pressure 79 mm[Hg] MD Shantel Steven Work Phone: [facility] 07-07-2024 11:41-0400 Heart rate 66 /min MD Shantel Steven Work Phone: [facility] 07-07-2024 11:41-0400 Systolic blood pressure 132 mm[Hg] MD Shantel Steven Work Phone: [facility] 06-16-2024 13:08-0400 Body height 165.1 cm MD Shantel Steven Work Phone: [facility] 06-16-2024 13:08-0400 Body mass index (BMI) [Ratio] 41.9 kg/m2 MD Shantel Steven Work Phone: [facility] 06-16-2024 13:08-0400 Body weight 114.3 kg MD Shantel Steven Work Phone: [facility] 06-16-2024 13:08-0400 Diastolic blood pressure 73 mm[Hg] MD Shantel Steven Work Phone: [facility] 06-16-2024 13:08-0400 Heart rate 55 /min MD Shantel Steven Work Phone: [facility] 06-16-2024 13:08-0400 Systolic blood pressure 137 mm[Hg] MD Shantel Steven Work Phone: [facility] 06-05-2024 11:51-0400 Body height 165.1 cm MD Shantel Steven Work Phone: [facility] 06-05-2024 11:51-0400 Body mass index (BMI) [Ratio] 43.2 kg/m2 MD Shantel Steven Work Phone: [facility] 06-05-2024 11:51-0400 Body temperature 96.6 [degF] MD Shantel Steven Work Phone: [facility] 06-05-2024 11:51-0400 Body weight 117.7 kg MD Shantel Steven Work Phone: [facility] 06-05-2024 11:51-0400 Diastolic blood pressure 74 mm[Hg] MD Shantel Steven Work Phone: [facility] 06-05-2024 11:51-0400 Heart rate 63 /min MD Shantel Steven Work Phone: [facility] 06-05-2024 11:51-0400 Respiratory rate 18 /min MD Shantel Steven Work Phone: [facility] 06-05-2024 11:51-0400 SaO2% (BldA) [Mass fraction] 97 % MD Shantel Steven Work Phone: [facility] 06-05-2024 11:51-0400 Systolic blood pressure 138 mm[Hg] MD Shantel Steven Work Phone: [facility] 05-22-2024 09:18-0400 Heart rate 55 /min MD Shantel Steven Work Phone: [facility] 05-22-2024 09:09-0400 Body temperature 97.8 [degF] MD Shantel Steven Work Phone: [facility] 05-22-2024 09:09-0400 Diastolic blood pressure 64 mm[Hg] MD Shantel Steven Work Phone: [facility] 05-22-2024 09:09-0400 Respiratory rate 22 /min MD Shantel Steven Work Phone: [facility] 05-22-2024 09:09-0400 SaO2% (BldA) [Mass fraction] 94 % MD Shantel Steven Work Phone: [facility] 05-22-2024 09:09-0400 Systolic blood pressure 140 mm[Hg] MD Shantel Steven Work Phone: [facility] 05-22-2024 09:08-0400 Body height 165.1 cm MD Shantel Steven Work Phone: [facility] 05-22-2024 09:08-0400 Body weight 117.48 kg MD Shantel Steven Work Phone: [facility] 05-19-2024 14:16-0400 Body height 165.1 cm MD Shantel Steven Work Phone: [facility] 05-19-2024 14:16-0400 Body mass index (BMI) [Ratio] 43.1 kg/m2 MD Shantel Steven Work Phone: [facility] 05-19-2024 14:16-0400 Body weight 117.48 kg MD Shantel Steven Work Phone: [facility] 05-19-2024 14:16-0400 Diastolic blood pressure 72 mm[Hg] MD Shantel Steven Work Phone: [facility] 05-19-2024 14:16-0400 Heart rate 56 /min MD Shantel Steven Work Phone: [facility] 05-19-2024 14:16-0400 Systolic blood pressure 133 mm[Hg] MD Shantel Steven Work Phone: [facility] 05-07-2024 11:52-0400 Body height 165.1 cm MD Shantel Steven Work Phone: [facility] 05-07-2024 11:52-0400 Body mass index (BMI) [Ratio] 41.5 kg/m2 MD Shantel Steven Work Phone: [facility] 05-07-2024 11:52-0400 Body temperature 98.5 [degF] MD Shantel Steven Work Phone: [facility] 05-07-2024 11:52-0400 Body weight 113.39 kg MD Shantel Steven Work Phone: [facility] 05-07-2024 11:52-0400 Diastolic blood pressure 81 mm[Hg] MD Shantel Steven Work Phone: [facility] 05-07-2024 11:52-0400 Heart rate 91 /min MD Shantel Steven Work Phone: [facility] 05-07-2024 11:52-0400 Systolic blood pressure 141 mm[Hg] MD Shantel Steven Work Phone: [facility] 04-29-2024 12:54-0400 Body height 165.1 cm MD Shantel Steven Work Phone: [facility] 04-29-2024 12:54-0400 Body mass index (BMI) [Ratio] 41.5 kg/m2 MD Shantel Steven Work Phone: [facility] 04-29-2024 12:54-0400 Body weight 113.39 kg MD Shantel Steven Work Phone: [facility] 04-29-2024 12:54-0400 Diastolic blood pressure 58 mm[Hg] MD Shantel Steven Work Phone: [facility] 04-29-2024 12:54-0400 Heart rate 54 /min MD Shantel Steven Work Phone: [facility] 04-29-2024 12:54-0400 Systolic blood pressure 90 mm[Hg] MD Shantel Steven Work Phone: [facility] 04-03-2024 11:29-0400 Body height 165.1 cm MD Shantel Steven Work Phone: [facility] 04-03-2024 11:29-0400 Body mass index (BMI) [Ratio] 43.7 kg/m2 MD Shantel Steven Work Phone: [facility] 04-03-2024 11:29-0400 Body weight 119.29 kg MD Shantel Steven Work Phone: [facility] 04-03-2024 11:29-0400 Diastolic blood pressure 71 mm[Hg] MD Shantel Steven Work Phone: [facility] 04-03-2024 11:29-0400 Heart rate 56 /min MD Shantel Steven Work Phone: [facility] 04-03-2024 11:29-0400 Systolic blood pressure 116 mm[Hg] MD Sahntel Steven Work Phone: [facility] 03-25-2024 15:15-0400 Body height 165.1 cm MD Shantel Steven Work Phone: [facility] 03-25-2024 15:15-0400 Body mass index (BMI) [Ratio] 43.9 kg/m2 MD Shantel Steven Work Phone: [facility] 03-25-2024 15:15-0400 Body weight 119.74 kg MD Shantel Steven Work Phone: [facility] 03-25-2024 15:15-0400 Diastolic blood pressure 87 mm[Hg] MD Shantel Steven Work Phone: [facility] 03-25-2024 15:15-0400 Heart rate 66 /min MD Shantel Steven Work Phone: [facility] 03-25-2024 15:15-0400 Systolic blood pressure 125 mm[Hg] MD Shantel Steven Work Phone: [facility] 02-15-2024 14:18-0400 Body height 165.1 cm [facility] 02-15-2024 14:18-0400 Body mass index (BMI) [Ratio] 38.6 kg/m2 [facility] 02-15-2024 14:18-0400 Body weight 105.23 kg [facility] 02-15-2024 14:18-0400 Diastolic blood pressure 66 mm[Hg] [facility] 02-15-2024 14:18-0400 Heart rate 55 /min [facility] 02-15-2024 14:18-0400 Systolic blood pressure 114 mm[Hg] [facility] 01-18-2024 10:23-0500 Body height 165.1 cm [facility] 01-18-2024 10:23-0500 Body mass index (BMI) [Ratio] 43.2 kg/m2 [facility] 01-18-2024 10:23-0500 Body weight 117.93 kg [facility] 01-18-2024 10:23-0500 Diastolic blood pressure 70 mm[Hg] [facility] 01-18-2024 10:23-0500 Heart rate 98 /min [facility] 01-18-2024 10:23-0500 SaO2% (BldA) [Mass fraction] 65 % [facility] 01-18-2024 10:23-0500 Systolic blood pressure 110 mm[Hg] [facility] 10-23-2023 16:00-0500 Body height 165.1 cm [employer] Other [facility] [employer] Other 10-23-2023 16:00-0500 Body mass index (BMI) [Ratio] 44.63 kg/m2 [employer] Other [employer] Other 10-23-2023 16:00-0500 Body temperature 96.8 [degF] [employer] Other [employer] Other 10-23-2023 16:00-0500 Body weight 121.66 kg [employer] Other [employer] Other 10-23-2023 16:00-0500 Diastolic blood pressure 60 mm[Hg] [employer] Other [employer] Other 10-23-2023 16:00-0500 Respiratory rate 18 /min Jaleesa Vanessa Other [employer] Other 10-23-2023 16:00-0500 SaO2% (BldA) [Mass fraction] 99 % Jaleesa Vanessa Other [employer] Other 10-23-2023 16:00-0500 Systolic blood pressure 124 mm[Hg] Jaleesa Vanessa Other [employer] Other 10-18-2023 13:45-0500 Body height 165.1 cm Shantel Steven Other [employer] Other 10-18-2023 13:45-0500 Body mass index (BMI) [Ratio] 44.86 kg/m2 Shantel Steven Other [employer] Other 10-18-2023 13:45-0500 Body temperature 97.3 [degF] Shantel Steven Other [employer] Other 10-18-2023 13:45-0500 Body weight 122.29 kg Shantel Steven Other [employer] Other 10-18-2023 13:45-0500 Diastolic blood pressure 84 mm[Hg] Shantel Steven Other [employer] Other 10-18-2023 13:45-0500 SaO2% (BldA) [Mass fraction] 97 % Shantel Steven Other [employer] Other 10-18-2023 13:45-0500 Systolic blood pressure 132 mm[Hg] Shantel Steven Other [employer] Other 09-04-2023 14:00-0400 Body height 165.1 cm Shantel Steven Other [employer] Other 09-04-2023 14:00-0400 Body mass index (BMI) [Ratio] 43.06 kg/m2 Shantel Steven Other [employer] Other 09-04-2023 14:00-0400 Body weight 117.39 kg Shantel Steven Other [employer] Other 09-04-2023 14:00-0400 Diastolic blood pressure 69 mm[Hg] Shantel Steven Other [employer] Other 09-04-2023 14:00-0400 Systolic blood pressure 127 mm[Hg] Shantel Steven Other [employer] Other 07-17-2023 10:00-0400 Body height 165.1 cm Shantel Steven Other [employer] Other 07-17-2023 10:00-0400 Body mass index (BMI) [Ratio] 43.03 kg/m2 Shantel Steven Other [employer] Other 07-17-2023 10:00-0400 Body weight 117.3 kg Shantel Steven Other [employer] Other 07-17-2023 10:00-0400 Diastolic blood pressure 76 mm[Hg] Shantel Steven Other [employer] Other 07-17-2023 10:00-0400 Systolic blood pressure 164 mm[Hg] Shantel Steven Other [employer] Other 04-30-2023 14:30-0400 Body height 165.1 cm Shantel Steven Other [employer] Other 04-30-2023 14:30-0400 Body mass index (BMI) [Ratio] 43.43 kg/m2 Shantel Steven Other [employer] Other 04-30-2023 14:30-0400 Body weight 118.39 kg Shantel Steven Other [employer] Other 04-30-2023 14:30-0400 Diastolic blood pressure 75 mm[Hg] Shantel Steven Other [employer] Other 04-30-2023 14:30-0400 Systolic blood pressure 135 mm[Hg] Shantel Steven Other [employer] Other 03-09-2023 12:15-0400 Body height 165.1 cm Shantel Steven Other [employer] Other 03-09-2023 12:15-0400 Body mass index (BMI) [Ratio] 43.59 kg/m2 Shantel Steven Other [employer] Other 03-09-2023 12:15-0400 Body weight 118.84 kg Shantel Steven Other [employer] Other 03-09-2023 12:15-0400 Diastolic blood pressure 82 mm[Hg] Shantel Steven Other [employer] Other 03-09-2023 12:15-0400 SaO2% (BldA) [Mass fraction] 97 % Shantel Steven Other [employer] Other 03-09-2023 12:15-0400 Systolic blood pressure 130 mm[Hg] Shantel Steven Other [employer] Other 02-20-2023 10:00-0400 Body height 165.1 cm Shantel Steven Other [employer] Other 02-20-2023 10:00-0400 Body mass index (BMI) [Ratio] 41.93 kg/m2 Shantel Steven Other [employer] Other 02-20-2023 10:00-0400 Body weight 114.31 kg Shantel Steven Other [employer] Other 02-20-2023 10:00-0400 Diastolic blood pressure 84 mm[Hg] Shantel Steven Other [employer] Other 02-20-2023 10:00-0400 Systolic blood pressure 132 mm[Hg] Shantel Steven Other [employer] Other 08-04-2022 13:33-0400 Blood Pressure Location [facility] [place] 08-04-2022 13:33-0400 Diastolic blood pressure 88 mm[Hg] [facility] [place] 08-04-2022 13:33-0400 Heart rate 76 /min [facility] [place] 08-04-2022 13:33-0400 Respiratory rate 16 /min [facility] [place] 08-04-2022 13:33-0400 Systolic blood pressure 130 mm[Hg] [facility] [place] 08-25-2021 14:30-0400 Body height 165.1 cm Akbar Cui II Other [employer] Other 08-25-2021 14:30-0400 Body mass index (BMI) [Ratio] 43.26 kg/m2 Akbar Cui II Other [facility] [employer] Other 08-25-2021 14:30-0400 Body weight 117.94 kg Akbar Cui II Other [facility] [employer] Other Encounters Encounter Date Encounter Type Care Provider Facility Start: 07-20-2025 End: 07-20-2025 ambulatory Shantel Steven MD Work Phone: [facility] Work Phone: Start: 07-20-2025 End: 07-20-2025 Shantel Steven MD -[facility] Work Phone: Start: 07-01-2025 Wandy Alvarez CMA -[facility] Work Phone: Start: 07-01-2025 Wandy Alvarez CMA -[facility] Work Phone: Start: 06-30-2025 Monica Stewrat MD -[facility] [employer] Work Phone: Start: 06-29-2025 Monica Stewart MD -[facility] [employer] Work Phone: Start: 06-28-2025 Jarred Cardona DO [facility] Work Phone: Start: 06-22-2025 Wandy Alvarez CMA -FP [facility] Work Phone: Start: 06-19-2025 Outside Provider -[facility] [employer] Work Phone: Start: 06-15-2025 End: 06-15-2025 ambulatory Shantel Steven MD Work Phone: [facility] Work Phone: Start: 06-15-2025 End: 06-15-2025 Shantel Steven MD -[facility] Work Phone: Start: 06-10-2025 Wandy Alvarez CMA -FP [facility] Work Phone: Start: 06-10-2025 Osbaldo Marlow MD -[facility] [employer] Work Phone: Start: 06-09-2025 Osbaldo Marlow MD -[facility] [employer] Work Phone: Start: 06-08-2025 Jarred Cardona [facility] Work Phone: Start: 06-04-2025 End: 06-04-2025 ambulatory Shantel Steven MD Work Phone: [facility] Work Phone: Start: 06-04-2025 End: 06-04-2025 Shantel Steven MD -[facility] Work Phone: Start: 06-02-2025 End: 06-02-2025 ambulatory Shantel Steven MD Work Phone: [facility] Work Phone: Start: 06-02-2025 End: 06-02-2025 Shantel Steven MD -[facility] Work Phone: Start: 05-31-2025 Monica Stewart MD -[facility] [employer] Work Phone: Start: 05-30-2025 Monica Stewart MD -[facility] [employer] Work Phone: Start: 05-29-2025 Monica Stewart MD -[facility] [employer] Work Phone: Start: 05-28-2025 Analisa Bryant MD [facility] Work Phone: Start: 05-21-2025 End: 05-21-2025 ambulatory Shantel Steven MD Work Phone: [facility] Work Phone: Start: 05-21-2025 End: 05-21-2025 Patient encounter procedure Shantel Steven MD -[facility] Work Phone: Start: 05-21-2025 End: 05-21-2025 Shantel Steven MD -[facility] Work Phone: Start: 05-13-2025 Non-patient / Non-visit [facility] -[facility] Work Phone: Start: 05-13-2025 Wandy [facility]varez [facility] -FP [facility] Work Phone: Start: 05-11-2025 Non-patient / Non-visit Cheng [facility] [employer] Work Phone: Start: 05-11-2025 Cheng [facility] [employer] Work Phone: Start: 04-22-2025 End: 04-22-2025 ambulatory [facility] Start: 04-21-2025 End: 04-21-2025 ambulatory Shantel Steven MD Work Phone: [facility] Work Phone: Start: 04-21-2025 End: 04-21-2025 Patient encounter procedure [facility] Work Phone: Start: 04-21-2025 End: 04-21-2025 Shantel Steven MD Work Phone: [facility] Work Phone: Start: 04-16-2025 End: 04-16-2025 ambulatory Shantel Steven MD Work Phone: [facility] Work Phone: Start: 04-16-2025 End: 04-16-2025 Patient encounter procedure Shantel Steven MD -[facility] Work Phone: Start: 04-16-2025 End: 04-16-2025 Shantel Steven MD Work Phone: [facility] Work Phone: Start: 03-24-2025 End: 03-24-2025 ambulatory Shantel Steven MD Work Phone: [facility] Work Phone: Start: 03-24-2025 End: 03-24-2025 Patient encounter procedure Shantel Steven MD -[facility] Work Phone: Start: 03-24-2025 End: 03-24-2025 Shantel Steven MD Work Phone: [facility] Work Phone: Start: 03-13-2025 Non-patient / Non-visit Wandy Bowen CMA -[facility] Work Phone: Start: 03-13-2025 Shantel Cardona Work Phone: [facility] Work Phone: Start: 03-12-2025 End: 03-12-2025 Shantel Steven MD Work Phone: [facility]Emer[facility] Work Phone: Start: 03-12-2025 End: 03-12-2025 Emergency department patient visit Shantel Steven MD Work Phone: [facility] Work Phone: Start: 03-10-2025 End: 03-10-2025 ambulatory [facility] Work Phone: Start: 03-10-2025 End: 03-10-2025 Patient encounter procedure [facility] Physician [facility] Gastro Work Phone: Start: 03-10-2025 End: 03-10-2025 Shantel Steven MD Work Phone: [facility] Physician [facility] Work Phone: Start: 03-02-2025 End: 03-02-2025 ambulatory [facility] Start: 03-02-2025 Non-patient / Non-visit [facility] Work Phone: Start: 03-02-2025 Shantel Cardona Work Phone: [facility] Physician [facility] [employer] Work Phone: Start: 02-19-2025 End: 02-19-2025 ambulatory [facility] Work Phone: Start: 02-19-2025 End: 02-19-2025 Patient encounter procedure [facility] Physician [facility] [place] Work Phone: Start: 02-19-2025 End: 02-19-2025 Shantel Steven MD Work Phone: [facility] Physician [facility] [place] Work Phone: Start: 02-09-2025 End: 02-09-2025 ambulatory [facility] Work Phone: Start: 02-09-2025 End: 02-09-2025 Patient encounter procedure [facility] Physician [facility] Work Phone: Start: 02-09-2025 End: 02-09-2025 Shantel Steven MD Work Phone: [facility] Physician [facility] Work Phone: Start: 01-28-2025 End: 01-28-2025 ambulatory [facility] Start: 01-28-2025 Non-patient / Non-visit [facility] Work Phone: Start: 01-28-2025 Shantel Cardona Work Phone: [facility] Physician [facility] Work Phone: Start: 01-27-2025 Non-patient / Non-visit [facility] Physician [facility] Work Phone: Start: 01-27-2025 Shantel Cardona Work Phone: [facility] Physician [facility] [employer] Work Phone: Start: 01-26-2025 Non-patient / Non-visit [facility] Work Phone: Start: 01-26-2025 Shantel Cardona Work Phone: [facility] Work Phone: Start: 01-25-2025 Non-patient / Non-visit [facility] Work Phone: Start: 01-25-2025 Shantel Cardona Work Phone: [facility] [employer] Work Phone: Start: 01-21-2025 End: 01-21-2025 ambulatory Shantel Steven MD Work Phone: [facility] Work Phone: Start: 01-21-2025 End: 01-21-2025 Patient encounter procedure Shantel tSeven MD Work Phone: [facility] Work Phone: Start: 01-21-2025 End: 01-21-2025 Shantel Steven MD Work Phone: [facility] Work Phone: Start: 01-14-2025 End: 01-14-2025 ambulatory Shantel Steven MD Work Phone: [facility] Work Phone: Start: 01-14-2025 End: 01-14-2025 Patient encounter procedure Shantel Steven MD Work Phone: [facility] Work Phone: Start: 01-14-2025 End: 01-14-2025 Shantel Steven MD Work Phone: [facility] Work Phone: Start: 01-07-2025 End: 01-07-2025 Telephone encounter Christel Chacon MD Work Phone: [facility] Comment on above: referral to Dr Estrada baer Start: 01-06-2025 End: 01-06-2025 Patient encounter procedure Shantel Steven MD Work Phone: [facility] Work Phone: Start: 01-06-2025 End: 01-06-2025 Shantel Steven MD Work Phone: [facility] Work Phone: Start: 01-06-2025 End: 01-06-2025 Telephone encounter Christel Chacon MD Work Phone: [facility] Comment on above: sleep study appt Start: 12-26-2024 End: 12-26-2024 ambulatory Jorge Luisgabrielle Zavala DO Work Phone: [facility] Work Phone: Start: 12-26-2024 End: 12-26-2024 Patient encounter procedure Jorge Luis Zavala DO Work Phone: [facility] Work Phone: Start: 12-26-2024 End: 12-26-2024 Shantel Steven MD Work Phone: [facility] Work Phone: Start: 12-18-2024 End: 12-18-2024 ambulatory FRANCHESCA PERAZA Facility:[facility] Start: 12-18-2024 End: 12-18-2024 Patient encounter procedure FRANCHESCA PERAZA [facility] Start: 12-09-2024 End: 12-09-2024 Patient encounter procedure Jorge Luis Zavala DO Work Phone: [facility] Work Phone: Start: 12-08-2024 Non-patient / Non-visit Oni Zaavla DO Work Phone: [facility] Work Phone: Start: 12-08-2024 End: 12-08-2024 ambulatory FRANCHESCA E STU Facility:[facility] [place] Start: 12-08-2024 End: 12-08-2024 Patient encounter procedure FRANCHESCA PERAZA [facility] Start: 12-04-2024 Non-patient / Non-visit Oni miranda Tupa DO Work Phone: [facility] Work Phone: Start: 12-04-2024 Non-patient / Non-visit Oni miranda Tupa DO Work Phone: [facility] [employer] Work Phone: Start: 12-02-2024 End: 12-02-2024 ambulatory [facility] Start: 11-13-2024 End: 11-13-2024 ambulatory FRANCHESCA E STU Facility:[facility] [place] Start: 11-13-2024 End: 11-13-2024 Patient encounter procedure FRANCHESCA Jenny PERAZA [facility] Start: 11-11-2024 End: 11-11-2024 Patient encounter procedure Jorge Luis Camargoalejandro DO Work Phone: [facility] Work Phone: Start: 11-10-2024 Non-patient / Non-visit Oni miranda Tupa DO Work Phone: [facility] [employer] Work Phone: Start: 11-06-2024 ambulatory FRANCHESCA E STU Facili ty:[facility] Start: 11-04-2024 End: 11-04-2024 ambulatory FRANCHESCA E STU Facility:[facility] Start: 11-04-2024 End: 11-04-2024 Patient encounter procedure FRANCHESCA PERAZA [facility] Start: 11-03-2024 End: 11-03-2024 Patient encounter procedure Jorge Luis Camargopa DO Work Phone: [facility] Physician [facility] Work Phone: Start: 10-31-2024 [facility] Start: 10-25-2024 End: 10-25-2024 Emergency department patient visit Jorge Luis Camargopa DO Work Phone: [facility] Work Phone: Start: 10-24-2024 Non-patient / Non-visit Oni k Tupa DO Work Phone: [facility] Physician [facility] Work Phone: Start: 10-22-2024 End: 10-22-2024 Emergency department patient visit Jorge Luis Camargopa DO Work Phone: [facility] Work Phone: Start: 10-21-2024 Non-patient / Non-visit Oni k Tupa DO Work Phone: [facility] Physician [facility] Work Phone: Start: 10-17-2024 Non-patient / Non-visit Oni k Tupa DO Work Phone: [facility] Physician [facility] Cardiology Work Phone: Start: 10-17-2024 Non-patient / Non-visit Oni k Tupa DO Work Phone: [facility] Physician [facility] Pulmonary Work Phone: Start: 10-16-2024 Non-patient / Non-visit Oni k Tupa DO Work Phone: [facility] Physician [facility] Neph [place] Work Phone: Start: 10-16-2024 End: 10-20-2024 Evaluation and management of inpatient Jorge Luis Zavala DO Work Phone: [facility] [place] [facility] Work Phone: Start: 10-08-2024 End: 10-08-2024 ambulatory [facility] Start: 10-01-2024 End: 10-01-2024 Bamboo flowsheet Christel Chacon MD Work Phone: [facility] Start: 10-01-2024 End: 10-01-2024 Juliette flowsmagdalene Chacon MD Work Phone: [facility] Start: 10-01-2024 End: 10-01-2024 Office outpatient visit 15 minutes Christel Chacon MD Work Phone: [facility] Comment on above: JED (obstructive sle ep apnea) (Primary Dx); Hypothyroidism (acquired) (CMS/HCC) Start: 10-01-2024 End: 10-01-2024 ambulatory CHRISTEL CHACON Not Available Start: 09-29-2024 Non-patient / Non-visit Oni Zavala DO Work Phone: [facility] Work Phone: Start: 09-26-2024 End: 09-30-2024 Telephone encounter Christel Chacon MD Work Phone: [facility] Start: 09-03-2024 ambulatory [facility] Start: 08-20-2024 End: 08-20-2024 ambulatory [facility] Start: 08-07-2024 End: 08-07-2024 ambulatory MD Shantel Steven Work Phone: [facility] Work Phone: Start: 08-07-2024 End: 08-07-2024 Patient encounter procedure MD Shantel Steven Work Phone: [facility] Work Phone: Start: 07-30-2024 Non-patient / Non-visit MD Alessia Steven Work Phone: [facility] Work Phone: Start: 07-25-2024 Non-patient / Non-visit MD Alessia Steven Work Phone: [facility] [employer] Work Phone: Start: 07-24-2024 Non-patient / Non-visit MD Alessia Steven Work Phone: [facility] Work Phone: Start: 07-22-2024 End: 07-22-2024 Bamboo flowsheet Christel Chacon MD Work Phone: [facility] Start: 07-22-2024 End: 07-22-2024 Bamboo flowsmagdalene Chacon MD Work Phone: [facility] Start: 07-22-2024 End: 07-22-2024 Office outpatient new 45 minutes Christel Chacon MD Work Phone: [facility] Comment on above: JED (obstructive sle ep apnea) (Primary Dx); LPRD (laryngopharyngeal reflux disease); Throat tightness Start: 07-22-2024 End: 07-22-2024 ambulatory CHRISTEL CHACON Not Available Start: 07-17-2024 End: 07-17-2024 Patient encounter procedure MD Shantel Steven Work Phone: [facility] Work Phone: Start: 07-17-2024 End: 07-17-2024 ambulatory MD Shantel Steven Work Phone: [facility] Work Phone: Start: 07-17-2024 End: 07-17-2024 Departed Referred MD Shantel Steven Work Phone: [facility] [place] Work Phone: Start: 07-17-2024 End: 07-17-2024 MD Shantel Steven Work Phone: [facility] Work Phone: Start: 07-16-2024 End: 07-16-2024 ambulatory MD Shantel Steven Work Phone: [facility] Work Phone: Start: 07-16-2024 End: 07-16-2024 Patient encounter procedure MD Shantel Steven Work Phone: [facility] Work Phone: Start: 07-16-2024 End: 07-16-2024 MD Shantel Steven Work Phone: [facility] Work Phone: Start: 07-15-2024 End: 07-15-2024 Non-patient / Non-visit MD Shantel Steven Work Phone: [facility] Work Phone: Start: 07-15-2024 Non-patient / Non-visit MD Alessia Steven Work Phone: [facility] [employer] Work Phone: Start: 07-15-2024 MD Shantel painting Work Phone: [facility] Work Phone: Start: 07-14-2024 Non-patient / Non-visit MD Alessia Steven Work Phone: [facility] Work Phone: Start: 07-14-2024 MD Shantel painting Work Phone: [facility] Work Phone: Start: 07-10-2024 End: 07-10-2024 Bamboo flowsheet Lizett Jacinto DATA ENTRY SUPERVISOR Work Phone: [facility] Start: 07-10-2024 End: 07-10-2024 Bamboo flowsheet Lizett Jacinto DATA ENTRY SUPERVISOR Work Phone[facility] Start: 07-10-2024 End: 07-10-2024 Office outpatient visit 25 minutes Lizett Jacinto DATA ENTRY SUPERVISOR Work Phone: [facility] Comment on above: Essential tremor (Pr imary Dx); Diabetic polyneuropathy associated with type 2 diabetes mellitus (CMS/HCC); Balance disorder; Sensory ataxia; Debility; Weakness; Paresthesias Start: 07-10-2024 End: 07-10-2024 ambulatory LIZETT JACINTO Not Available Start: 07-07-2024 End: 07-07-2024 ambulatory MD Shantel Steven Work Phone: [facility] Work Phone: Start: 07-07-2024 End: 07-07-2024 Patient encounter procedure MD Shantel Steven Work Phone: [facility] Work Phone: Start: 07-07-2024 End: 07-07-2024 MD Shantel Steven Work Phone: [facility] Work Phone: Start: 06-25-2024 ambulatory MD Shantel gray Work Phone: [facility] Work Phone: Start: 06-25-2024 Non-patient / Non-visit MD Alessia Steven Work Phone: [facility] Work Phone: Start: 06-25-2024 MD Shantel painting Work Phone: [facility] Work Phone: Start: 06-24-2024 Non-patient / Non-visit MD Alessia Steven Work Phone: [facility] Work Phone: Start: 06-24-2024 MD Shantel painting Work Phone: [facility] Work Phone: Start: 06-16-2024 End: 06-16-2024 ambulatory MD Shantel Steven Work Phone: [facility] Work Phone: Start: 06-16-2024 End: 06-16-2024 Patient encounter procedure MD Shantel Steven Work Phone: [facility] Work Phone: Start: 06-16-2024 End: 06-16-2024 MD Shantel Steven Work Phone: [facility] Work Phone: Start: 06-10-2024 Non-patient / Non-visit MD Alessia Steven Work Phone: [facility] Work Phone: Start: 06-10-2024 MD Shantel painting Work Phone: [facility] Work Phone: Start: 06-09-2024 Non-patient / Non-visit MD Alessia Steven Work Phone: [facility] Work Phone: Start: 06-09-2024 MD Shantel painting Work Phone: [facility] Work Phone: Start: 06-05-2024 End: 06-05-2024 ambulatory MD Shantel Steven Work Phone: [facility] Work Phone: Start: 06-05-2024 End: 06-05-2024 Patient encounter procedure MD Shantel Steven Work Phone: [facility] [place] Work Phone: Start: 06-05-2024 End: 06-05-2024 MD Shantel Steven Work Phone: [facility] [place] Work Phone: Start: 06-01-2024 Non-patient / Non-visit MD Alessia Steven Work Phone: [facility] Work Phone: Start: 06-01-2024 MD Shantel painting Work Phone: [facility] Work Phone: Start: 05-26-2024 Non-patient / Non-visit MD Alessia Steven Work Phone: [facility] Work Phone: Start: 05-26-2024 MD Shantel painting Work Phone: [facility] Work Phone: Start: 05-22-2024 End: 05-22-2024 Emergency department patient visit MD Shantel Steven Work Phone: [facility] Work Phone: Start: 05-22-2024 End: 05-22-2024 MD Shantel Steven Work Phone: [facility] Work Phone: Start: 05-20-2024 Non-patient / Non-visit MD Alessia Steven Work Phone: [facility] Work Phone: Start: 05-20-2024 MD Shantel painting Work Phone: [facility] Work Phone: Start: 05-19-2024 End: 05-19-2024 ambulatory MD Shantel Steven Work Phone: [facility] Work Phone: Start: 05-19-2024 End: 05-19-2024 Patient encounter procedure MD Shantel Steven Work Phone: [facility] Work Phone: Start: 05-19-2024 End: 05-19-2024 MD Shantel Steven Work Phone: [facility] Physician [facility] Work Phone: Start: 05-07-2024 End: 05-07-2024 ambulatory MD Shantel Steven Work Phone: [facility] Work Phone: Start: 05-07-2024 End: 05-07-2024 Patient encounter procedure MD Shantel Steven Work Phone: [facility] Work Phone: Start: 05-07-2024 End: 05-07-2024 MD Shantel Steven Work Phone: [facility] Work Phone: Start: 05-06-2024 Non-patient / Non-visit MD Alessia Steven Work Phone: [facility] Work Phone: Start: 05-06-2024 MD Shantel painting Work Phone: [facility] Work Phone: Start: 05-05-2024 Non-patient / Non-visit MD Alessia Steven Work Phone: [facility] Work Phone: Start: 05-05-2024 MD Shantel painting Work Phone: [facility] Work Phone: Start: 05-04-2024 End: 05-06-2024 Non-patient / Non-visit MD Shantel Steven Work Phone: [facility] Work Phone: Start: 05-04-2024 End: 05-06-2024 MD Shantel Steven Work Phone: [facility] Work Phone: Start: 05-04-2024 Non-patient / Non-visit MD Alessia Steven Work Phone: [facility] Work Phone: Start: 05-04-2024 MD Shantel painting Work Phone: [facility] Work Phone: Start: 05-02-2024 Non-patient / Non-visit MD Alessia Steven Work Phone: [facility] Work Phone: Start: 05-02-2024 MD Shantel painting Work Phone: [facility] Work Phone: Start: 05-01-2024 Non-patient / Non-visit MD Alessia Steven Work Phone: [facility] Work Phone: Start: 05-01-2024 MD Shantel painting Work Phone: [facility] Work Phone: Start: 04-30-2024 Non-patient / Non-visit MD Alessia Steven Work Phone: [facility] Work Phone: Start: 04-30-2024 MD Shantel painting Work Phone: [facility] Work Phone: Start: 04-30-2024 Non-patient / Non-visit MD Alessia Steven Work Phone: [facility] Work Phone: Start: 04-30-2024 MD Shatnel painting Work Phone: [facility] Work Phone: Start: 04-29-2024 End: 04-29-2024 Patient encounter procedure MD Shantel Steven Work Phone: [facility] Work Phone: Start: 04-29-2024 End: 04-29-2024 MD Shantel Steven Work Phone: [facility] Work Phone: Start: 04-03-2024 End: 04-03-2024 ambulatory MD Shantel Steven Work Phone: [facility] Work Phone: Start: 04-03-2024 End: 04-03-2024 Patient encounter procedure MD Shantel Steven Work Phone: [facility] Work Phone: Start: 04-03-2024 End: 04-03-2024 MD Shantel Steven Work Phone: [facility] Work Phone: Start: 04-01-2024 Non-patient / Non-visit MD Alessia Steven Work Phone: [facility] Work Phone: Start: 04-01-2024 MD Shantel painting Work Phone: [facility] Work Phone: Start: 03-31-2024 Non-patient / Non-visit MD Alessia Steven Work Phone: [facility] Work Phone: Start: 03-31-2024 MD Shantel painting Work Phone: [facility] Physician [facility] Work Phone: Start: 03-28-2024 Non-patient / Non-visit MD Alessia Steven Work Phone: [facility] Work Phone: Start: 03-28-2024 MD Shantel painting Work Phone: [facility] Work Phone: Start: 03-27-2024 Non-patient / Non-visit MD Alessia Steven Work Phone: [facility] Work Phone: Start: 03-27-2024 MD Shantel painting Work Phone: [facility] Work Phone: Start: 03-26-2024 Non-patient / Non-visit MD Alessia Steven Work Phone: [facility] Work Phone: Start: 03-26-2024 MD Shantel painting Work Phone: [facility] Work Phone: Start: 03-25-2024 End: 03-25-2024 Patient encounter procedure MD Shantel Steven Work Phone: [facility] Physician [facility] Work Phone: Start: 03-25-2024 End: 03-25-2024 MD Shantel Steven Work Phone: [facility] Physician [facility] Work Phone: Start: 03-13-2024 End: 03-13-2024 ambulatory MD Shantel Steven Work Phone: [facility] Work Phone: Start: 03-13-2024 End: 03-13-2024 Patient encounter procedure MD Shantel Steven Work Phone: [facility] [address] Work Phone: Start: 02-19-2024 ambulatory FRANCHESCA PERAZA Facility :[facility] Start: 02-15-2024 End: 02-15-2024 ambulatory [facility] Work Phone: Start: 02-15-2024 End: 02-15-2024 Patient encounter procedure [facility] Work Phone: Start: 01-29-2024 Non-patient / Non-visit [facility] Physician [facility] Work Phone: Start: 01-24-2024 Non-patient / Non-visit [facility] Physician [facility] Work Phone: Start: 01-22-2024 Non-patient / Non-visit [facility] Physician [facility] Work Phone: Start: 01-18-2024 End: 01-18-2024 Patient encounter procedure [facility] Work Phone: Start: 01-15-2024 Non-patient / Non-visit [facility] Work Phone: Start: 01-04-2024 Non-patient / Non-visit [facility] Physician [facility] Work Phone: Start: 12-18-2023 End: 12-18-2023 ambulatory Shantel Steven Other [employer] Other Start: 12-18-2023 Telephone encounter Shantel Steven [facility] Start: 11-19-2023 End: 11-19-2023 ambulatory Shantel Steven Other [employer] Other Start: 11-19-2023 Telephone encounter Shantel Steven [facility] Start: 10-23-2023 End: 10-23-2023 ambulatory Jaleesa Vanessa Other [employer] Other Start: 10-23-2023 Office outpatient ne w 30 minutes Jaleesa Hookerphill [facility] [place] Start: 10-22-2023 End: 10-22-2023 ambulatory Shantel Tenisha Other [employer] Other Start: 10-22-2023 Telephone encounter Shantel Tenisha [facility] Start: 10-18-2023 End: 10-18-2023 ambulatory Shantel Tenisha Other [employer] Other Start: 10-18-2023 Office outpatient vi sit 15 minutes Shantel Steven [facility] Start: 09-07-2023 End: 09-07-2023 ambulatory Shantel Tenisha Other [employer] Other Start: 09-07-2023 Telephone encounter Shantel Tenisha [facility] Start: 09-04-2023 End: 09-04-2023 ambulatory Shantel Tenisha Other [employer] Other Start: 09-04-2023 Office outpatient vi sit 25 minutes Shantel Steven [facility] Start: 08-23-2023 End: 08-23-2023 ambulatory Shantel Tenisha Other [employer] Other Start: 08-23-2023 Telephone encounter Shantel Tenisha [facility] Start: 07-23-2023 End: 07-23-2023 ambulatory Shantel Tenisha Other [employer] Other Start: 07-23-2023 Telephone encounter Shantel Tenisha [facility] Start: 07-17-2023 End: 07-17-2023 ambulatory Shantel Tenisha Other [employer] Other Start: 07-17-2023 Office outpatient vi sit 25 minutes Shantel Steven [facility] Start: 05-30-2023 End: 05-30-2023 ambulatory Shantel Steven Other [employer] Other Start: 05-30-2023 Telephone encounter Shantel Steven [facility] Start: 05-22-2023 End: 05-22-2023 ambulatory Shantel Steven Other [employer] Other Start: 05-22-2023 Telephone encounter Shantel Steven [facility] Start: 05-16-2023 End: 05-16-2023 ambulatory Shantel Steven Other [employer] Other Start: 05-16-2023 Telephone encounter Shantel Steven [facility] Start: 05-07-2023 End: 05-07-2023 ambulatory Shantel Steven Other [employer] Other Start: 05-07-2023 Telephone encounter Shantel Steven [facility] Start: 04-30-2023 End: 04-30-2023 ambulatory Shantel Steven Other [employer] Other Start: 04-30-2023 Office outpatient vi sit 25 minutes Shantel Steven [facility] Start: 04-25-2023 End: 04-25-2023 ambulatory Shantel Steven Other [employer] Other Start: 04-25-2023 Telephone encounter Shantel Steven [facility] Start: 04-12-2023 End: 04-12-2023 ambulatory Shantel Steven Other [employer] Other Start: 04-12-2023 Telephone encounter Shantel Steven [facility] Start: 03-09-2023 End: 03-09-2023 ambulatory Shantel Steven Other [employer] Other Start: 03-09-2023 Office outpatient vi sit 15 minutes Shantel Steven [facility] Start: 03-07-2023 End: 03-07-2023 ambulatory Shantel Steven Other [employer] Other Start: 03-07-2023 Telephone encounter Shantel Steven [facility] Start: 03-06-2023 End: 03-06-[address] SHANTEL STEVEN Facility:[facility] Start: 03-05-2023 End: 03-05-2023 ambulatory Shantel Steven Other [employer] Other Start: 03-05-2023 Telephone encounter Shantel Steven [facility] Start: 02-26-2023 End: 02-26-2023 ambulatory Shantel Steven Other [employer] Other Start: 02-26-2023 Telephone encounter Shantel Steven [facility] Start: 02-24-2023 End: 02-24-[address] SHANTEL STEVEN Facility:[facility] Start: 02-23-2023 End: 02-23-2023 ambulatory Shantel Steven Other [employer] Other Start: 02-23-2023 Telephone encounter Shantel Steven [facility] Start: 02-20-2023 End: 02-20-2023 ambulatory Shantel Steven Other [employer] Other Start: 02-20-2023 Transitional care luz cabral [facility] 14 day discharge Shantel Steven [facility] Start: 02-16-2023 End: 02-16-2023 ambulatory Shantel Steven Other [employer] Other Start: 02-16-2023 Telephone encounter Shantel Steven [facility] Start: 02-13-2023 End: 02-14-[address] SHANTEL STEVEN Facility:[facility] Start: 02-02-2023 End: 02-02-2023 ambulatory Shantel Steven Other [employer] Other Start: 02-02-2023 Telephone encounter Shantel Steven [facility] Start: 01-16-2023 End: 01-17-[address] DOCTOR CARMONA Facility:[facility] Start: 01-05-2023 End: 01-05-2023 ambulatory BIN ROJAS Facility:[facility] Start: 01-01-2023 End: 01-02-2023 ambulatory ANALISA BRYANT Facility:[facility] Start: 11-29-2022 End: 11-29-2022 ambulatory Shantel Steven Other [employer] Other Start: 11-29-2022 Telephone encounter Shantel Steven [facility] Start: 11-27-2022 End: 11-27-2022 ambulatory Shantel Steven Other [employer] Other Start: 11-27-2022 Telephone encounter Shantel Steven [facility] Start: 11-24-2022 End: 11-24-2022 ambulatory Shantel Steven Other [employer] Other Start: 11-24-2022 Telephone encounter Shantel Steven [facility] Start: 11-06-2022 ambulatory YAMEL PANDYA Facility :[facility] Start: 09-15-2022 End: 09-16-[address] SHANTEL STEVEN Facility:[facility] Start: 08-04-2022 End: 08-04-2022 Patient encounter procedure Bin SORENSON [facility] [place] Start: 05-02-2022 End: 05-02-[address] SHANTEL STEVEN Facility:[facility] Start: 08-25-2021 Office outpatient ne w 45 minutes [address] Cui II [facility] Start: 08-09-2017 End: 08-12-2017 Ambulatory PROVIDER UNKNOWN Facility:[facility] Procedures Date Procedure Procedure Detail Performing Clinician Start: 06-08-2025 Shantel Steven MD Work Phone: Start: 06-02-2025 Urine culture Shantel Steven MD [...] Bin NILL History of sigmoid colectomy Bin SORENSON Total abdominal hyst erectomy with bilateral salpingo-oophorectomy Bin SORENSON Plan of Treatment Date Care Activity Detail Author Start: 06-08-2025 [facility] Start: 06-02-2025 [facility] Start: 06-02-2025 Urine culture [facility] Start: 03-24-2025 Patient referral [facility] Work Phone: Start: 12-10-2024 Patient referral [facility] Work Phone: Start: 10-20-2024 [facility] Start: 10-16-2024 Consultation [facility] Start: 10-16-2024 Hospital admission [facility] Start: 10-16-2024 Referral to manufacturing engineering professor [facility] Start: 10-16-2024 Drainage of Bladder with Drainage Device, Via Natural or Artificial Opening Drainage of Bladder with Drainage Device, Via Natural or Artificial Opening [facility] Start: 10-16-2024 Performance of Cardi ac Pacing, Continuous Performance of Cardiac Pacing, Continuous [facility] Start: 10-01-2024 End: 10-01-2024 Patient encounter procedure [facility] Comment on above: Arrived Start: 09-30-2024 End: 09-30-2024 Patient encounter procedure 09/30/2024 1:00 PM EST Office Visit [facility] [address] [place] [phone] Wanda Patel DO [address] [place] [address] [facility] [address] Start: 09-04-2024 End: 09-04-2024 Patient encounter procedure 09/04/2024 1:20 PM EDT Office Visit [facility] [address] [place] [phone] Lizett JacintoSHAUN [address] [place], [place] [facility] [address] [address] Start: 07-22-2024 End: 07-22-2024 Patient encounter procedure 07/22/2024 1:10 PM EDT Office Visit [facility] [address] [place] [id number] Christel Chacon MD [address] [place] [address] Arrived [facility] Comment on above: Arrived Start: 07-17-2024 Bacteria identified in Urine by Culture [facility] Start: 07-17-2024 [facility] Start: 07-15-2024 End: 07-15-2024 Patient encounter procedure 07/15/2024 1:10 PM EDT Office Visit [facility] [address] [facility] [address] [place] [id number] Christel Chacon MD [address] [facility] [address] [place] [address] [facility] Start: 2024 Influenza vaccination Influenza Vacc ine (#1) [facility] Start: 07-10-2024 End: 07-10-2024 Patient encounter procedure 07/10/2024 1:40 PM EDT Office Visit [facility] [address] [place] [phone] Lizett Jacinto, SHAUN [address] [place] [address] Arrived [facility] Comment on above: Arrived Start: 06-25-2024 Patient referral [facility] Work Phone: Start: 06-16-2024 Patient referral [facility] Work Phone: Start: 05-07-2024 Patient referral [facility] Work Phone: Start: 05-04-2024 Blood Culture 1 Blood Culture 1 [facility] Start: 02-15-2024 Patient referral [facility] Work Phone: Comprehensive metabo lic 1999 panel - Serum or Plasma [facility] Comprehensive metabo lic 1999 panel - Serum or Plasma [facility] CT Abdomen and Pelvi s WO contrast [facility] Microalbumin [Mass/volume] in Urine [facility] Patient Education [facility] Work Phone: Patient referral [facility] Work Phone: Renal function 1999 panel - Serum or Plasma [facility] Renal function 1999 panel - Serum or Plasma [facility] Renal function 1999 panel - Serum or Plasma [facility] Immunizations Immunization Date Immunization Notes Care Provider Fa cility 01-18-2024 Pneumococcal Conjugate Vaccine, 20 valent [facility] 09-04-2023 influenza, high dose seasonal, preservative-free Shantel Steven Other [employer] [facility] [employer] Other 09-04-2023 influenza virus vaccine, unspecified formulation [facility] 02-04-2021 COVID-19 mRNA, Comirnaty (Pfizer) [facility] 01-21-2021 COVID-19 mRNA, Comirnaty (Pfizer) [facility] 10-09-2018 influenza virus vaccine, split virus (incl. purified surface antigen) Shantel Steven Other [employer] [facility] [employer] Other 10-09-2018 influenza virus vaccine, unspecified formulation [facility] NEGATED: Highlighted row has not occurred!10-17-2024 influenza, high dose seasonal, preservative-free Jorge Luis Angle DO Work Phone: [facility] NEGATED: Highlighted row has not occurred!08-21-2019 influenza virus vaccine, split virus (incl. purified surface antigen) Shantel Steven Other [employer] Other Payers Date Payer Category Payer Medicare [id number] 2024 Self-pay [id number] 2023 Medicare [employer]NA MEDICARE ADVANTAGE HU[employer]NA MEDICARE [id number] 2023-Present [address] [address] [place] [address] [id number] 2023 Medicare (Managed Care) [facility] [id number] 1959 Medicare [id number] 1959 Self-pay [id number] 1945 Unknown [id number] 2.16.840.1.574505.3.579. 2.593 1946 Unknown [id number] 2.16.840.1.940937.3.579. 2.593 1946 Unknown [id number] 2.16.840.1.726596.3.579. 2.593 1946 Unknown [id number] 2.16.840.1.784229.3.579. 2.593 1946 Unknown [id number] 2.16.840.1.981871.3.579. 2.593 1946 Unknown [id number] 2.16.840.1.335927.3.579. 2.593 1946 Unknown [id number] 2.16.840.1.037602.3.579. 2.593 1946 Unknown [id number] 2.16.840.1.500566.3.579. 2.593 1946 Unknown [id number] 2.16.840.1.150126.3.579. 2.593 1946 Unknown [id number] 2.16.840.1.445591.3.579. 2.1259 1946 Unknown [id number] 2.16.840.1.091439.3.579. 2.1259 1946 Unknown [id number] 2.16.840.1.311727.3.579. 2.1259 1946 Unknown [id number] 2.16.840.1.383641.3.579. 2.727 1946 Unknown [id number] 2.16.840.1.147873.3.579. 2.727 1946 Unknown [id number] 2.16.840.1.314212.3.579. 2.727 1946 Unknown [id number] 2.16.840.1.517629.3.579. 2.727 1946 Unknown [id number] 2.16.840.1.459147.3.579. 2.727 Unknown Unknown [id number] 2.16.840.1.364193.3.579. 2.531 Unknown [id number] 2.16.840.1.645007.3.579. 2.531 Unknown [id number] 2.16.840.1.723159.3.579. 2.531 Unknown [id number] 2.16.840.1.931928.3.579. 2.531 Unknown [id number] 2.16.840.1.441813.3.579. 2.531 Unknown [id number] 2.16.840.1.362037.3.579. 2.531 Unknown [id number] 2.16.840.1.810047.3.579. 2.531 Social History Date Type Detail Facility Start: 07-22-2024 End: 10-01-2024 Sex Assigned At [facility] [employer] Other Start: 08-04-2022 End: 10-25-2024 Tobacco smoking status Ex-smoker (finding) [facility] Tobacco smoking status Never Gener al [facility] Start: 1945 Sex Assigned At Female F [facility] History of tobacco use Current smoker [facility] History of tobacco use Cigarette Smoker N [facility] Start: 07-03-2024 Tobacco use and exposure Smokeless tobacco non-user [facility] Start: 07-22-2024 End: 10-01-2024 Alcoholic beverage intake Lifetime non-drinker (finding) [facility] Start: 07-22-2024 End: 10-01-2024 History of Social function [facility] Start: 07-08-2024 Alcohol Comment caffeine: 1-2 cups per day [facility] Start: 1945 Sex assigned at Not on file N [facility] Start: 12-26-2024 End: 04-21-2025 Sex Female (finding) [facility] Start: 03-12-2025 End: 06-10-2025 Tobacco smoking status NHIS Never smoked tobacco (finding) [facility] Medical Equipment Procedure Code Equipment Code Equipment Origin al Text Equipment Identifier Dates Blood Sugar Diagnostic (True Metrix Glucose Test Strip) strip Start: 03-31-2024 Pen Needle, Diab etic ([facility] [place]) 33 gauge x 5/32 needle Start: 03-25-2024 Blood Sugar Diagnostic (True Metrix Glucose Test Strip) strip Start: 03-31-2024 End: 03-31-2024 Blood Sugar Diagnostic (True Metrix Glucose Test Strip) strip Start: 03-31-2024 Pen Needle, Diab etic ([facility] [place]) 33 gauge x 5/32 needle Start: 03-25-2024 Blood Sugar Diagnostic (True Metrix Glucose Test Strip) strip Start: 03-31-2024 End: 03-31-2024 Blood Sugar Diagnostic (True Metrix Glucose Test Strip) strip Start: 03-31-2024 Pen Needle, Diab etic ([facility] [place]) 33 gauge x 5/32 needle Start: 03-25-2024 Blood Sugar Diagnostic (True Metrix Glucose Test Strip) strip Start: 03-31-2024 End: 03-31-2024 Blood Sugar Diagnostic (True Metrix Glucose Test Strip) strip Start: 03-31-2024 Pen Needle, Diab etic ([facility] [place]) 33 gauge x 5/32 needle Start: 03-25-2024 Blood Sugar Diagnostic (True Metrix Glucose Test Strip) strip Start: 03-31-2024 End: 03-31-2024 Blood Sugar Diagnostic (True Metrix Glucose Test Strip) strip Start: 03-31-2024 Pen Needle, Diab etic ([facility] [place]) 33 gauge x 5/32 needle Start: 03-25-2024 Blood Sugar Diagnostic (True Metrix Glucose Test Strip) strip Start: 03-31-2024 End: 03-31-2024 Blood Sugar Diagnostic (True Metrix Glucose Test Strip) strip Start: 03-31-2024 Pen Needle, Diab etic ([facility] [place]) 33 gauge x 5/32 needle Start: 03-25-2024 Blood Sugar Diagnostic (True Metrix Glucose Test Strip) strip Start: 03-31-2024 End: 03-31-2024 Blood Sugar Diagnostic (True Metrix Glucose Test Strip) strip Start: 03-31-2024 Pen Needle, Diab etic ([facility] [place]) 33 gauge x 5/32 needle Start: 03-25-2024 Blood Sugar Diagnostic (True Metrix Glucose Test Strip) strip Start: 03-31-2024 End: 03-31-2024 Blood Sugar Diagnostic (True Metrix Glucose Test Strip) strip Start: 03-31-2024 Pen Needle, Diab etic ([facility] [place]) 33 gauge x 5/32 needle Start: 03-25-2024 Blood Sugar Diagnostic (True Metrix Glucose Test Strip) strip Start: 03-31-2024 End: 03-31-2024 Blood Sugar Diagnostic (True Metrix Glucose Test Strip) strip Start: 03-31-2024 Pen Needle, Diab etic ([facility] [place]) 33 gauge x 5/32 needle Start: 03-25-2024 Blood Sugar Diagnostic (True Metrix Glucose Test Strip) strip Start: 03-31-2024 End: 03-31-2024 Pen Needle, Diab etic ([facility] [place]) 33 gauge x 5/32 needle Start: 03-25-2024 Blood Sugar Diagnostic (True Metrix Glucose Test Strip) strip Start: 03-31-2024 End: 10-16-2024 Blood Sugar Diagnostic (True Metrix Glucose Test Strip) strip Start: 03-31-2024 End: 03-31-2024 Pen Needle, Diab etic ([facility] [place]) 33 gauge x 5/32 needle Start: 03-25-2024 Blood Sugar Diagnostic (True Metrix Glucose Test Strip) strip Start: 03-31-2024 End: 10-16-2024 Blood Sugar Diagnostic (True Metrix Glucose Test Strip) strip Start: 03-31-2024 End: 03-31-2024 Pen Needle, Diab etic ([facility] [place]) 33 gauge x 5/32 needle Start: 03-25-2024 Blood Sugar Diagnostic (True Metrix Glucose Test Strip) strip Start: 03-31-2024 End: 10-16-2024 Blood Sugar Diagnostic (True Metrix Glucose Test Strip) strip Start: 03-31-2024 End: 03-31-2024 Pen Needle, Diab etic ([facility] [place]) 33 gauge x 5/32 needle Start: 03-25-2024 Blood Sugar Diagnostic (True Metrix Glucose Test Strip) strip Start: 03-31-2024 End: 10-16-2024 Blood Sugar Diagnostic (True Metrix Glucose Test Strip) strip Start: 03-31-2024 End: 03-31-2024 Pen Needle, Diab etic ([facility] [place]) 33 gauge x 5/32 needle Start: 03-25-2024 Blood Sugar Diagnostic (True Metrix Glucose Test Strip) strip Start: 03-31-2024 End: 10-16-2024 Blood Sugar Diagnostic (True Metrix Glucose Test Strip) strip Start: 03-31-2024 End: 03-31-2024 Pen Needle, Diab etic ([facility] [place]) 33 gauge x 5/32 needle Start: 03-25-2024 Blood Sugar Diagnostic (True Metrix Glucose Test Strip) strip Start: 03-31-2024 End: 10-16-2024 Blood Sugar Diagnostic (True Metrix Glucose Test Strip) strip Start: 03-31-2024 End: 03-31-2024 Pen Needle, Diab etic ([facility] [place]) 33 gauge x 5/32 needle Start: 03-25-2024 Blood Sugar Diagnostic (True Metrix Glucose Test Strip) strip Start: 03-31-2024 End: 10-16-2024 Blood Sugar Diagnostic (True Metrix Glucose Test Strip) strip Start: 03-31-2024 End: 03-31-2024 Pen Needle, Diab etic ([facility] [place]) 33 gauge x 5/32 needle Start: 03-25-2024 Blood Sugar Diagnostic (True Metrix Glucose Test Strip) strip Start: 03-31-2024 End: 10-16-2024 Blood Sugar Diagnostic (True Metrix Glucose Test Strip) strip Start: 03-31-2024 End: 03-31-2024 Goals Date Patient Goal Desired Activity /State Functional Status Date Assessment Result Facility 11-04-2024 Functional Status N/A [facility] 10-20-2024 Functional status Patient at Baseline [facility] Work Phone: 08-04-2022 Functional Status N/A [facility] Mental Status Date Assessment Result Facility 10-20-2024 Cognitive function Cognitive Sta tus Patient at Baseline [facility] Work Phone: Clinical Notes 08-25-2021 to 07-15-2025 Note Date & Type Note Facility 07-15-2025 Note We called and spoke to spouse regarding [...] know when she is ready to proceed. 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 She has history of CA in the past and underwent balloon angioplasty (many years ago, prior to the stent era). 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 In December 2022 she was admitted to the [facility] with decompensated diastolic heart failure, she was treated with diuretic therapy. In February 2023 she was admitted to [facility] with dehydration secondary to acute gastroenteritis. She also had acute kidney injury in that setting. She has history of breast cancer more than 25 years ago s/p mastectomy, chemo and radiation therapy. She has lymphedema in the left arm. In the past she saw a adjunct instructor in economics for bleeding behind the eye . she [...] 2024 she was admitted to the [facility] with increasing weakness and altered mental status. She also had acute renal insufficiency. She had UTI secondary to E. coli. She previously was admitted to the [facility] several times due to heart failure. She was readmitted in January 2025 to the [facility] with shortness of breath and treated [...] Positive for shortness (more content not included)... [facility] 04-21-2025 Evaluation note Diagnosis Onset Date Resolution GERD (gastroesophageal reflux disease) acute April 21, [...] use of acute June 04, 2025 9:49am CHF (congestive heart failure) acute July 20, 2 025 1:56pm [facility] Work Phone: 1([phone]) 755-813105-13-2025 Evaluation note* Diagnosis Onset Date Resolution Status Admit Date Diarrhea acute March 24, 2025 1:51pm Longstanding [...] 04, 2025 9:49am Type 2 diabetes mellitus wit h hyperglycemia, with long-term current use of acute June 04, 2025 9:49am [facility] Work Phone: 1(144) 489-219605-13-2025 Hospital Discharge instructionsAmbulatory Orders* Referral to Diabetes Management Time Frame: 03/24/25, Location: None Selected [facility] Work Phone: 1([phone]) 796-543004-29-2025 Evaluation note* Diagnosis Onset Date Resolution Status [...] bowel syndrome) acute April 21, 2025 2:10pm [facility] Work Phone: 1([phone]) 118-110504-29-2025 Evaluation note* Diagnosis Onset Date Resolution Status [...] x disease) acute May 21, 2025 10:52am [facility] Work Phone: 1([phone]) 180-515004-29-2025 Evaluation note* Diagnosis Onset Date Resolution Status [...] 2025 10:52am Dysuria acute June 02 12:10pm [facility] Work Phone: 1([phone]) 200-390704-21-2025 NoteCardiovascular Medicine [facility] SUBJECTIVE Patient is here today for follow-up after [facility] admission HPI 03/02/2025 Patient is here [...] intake. 01/28/2025 She presented yesterday to the [place] emergency room with worsening shortness of breath [...] better. She is going to see a manufacturing engineering professor next week. Also she reports symptoms of [...] postchemotherapy and radiation She was recently in [facility] 10/16/2024, she presented with fatigue, lightheadedness [...] her weight has been stable since discharge. 11/27/24 After last visit we had reduced her lasix from 40mg BID to 40mg daily along with hold her lisinopril due to (more content not included)...[facility]03-31-2025 Evaluation note* Diagnosis Onset Date Resolution [...] tract infection) acute March 24, 2025 1:51pm [facility] Work Phone: 1([phone]) 269-795703-31-2025 Evaluation note* Diagnosis Onset Date Resolution Status [...] bowel syndrome) acute April 21, 2025 2:10pm [facility] Work Phone: 1([phone]) 722-759303-19-2025 NoteCardiovascular Medicine [facility] SUBJECTIVE Patient is here today for follow-up after [facility] admission HPI 01/28/2025 She presented yesterday to the [place] emergency room with worsening shortness of breath [...] better. She is going to see a manufacturing engineering professor next week. Also she reports symptoms of [...] postchemotherapy and radiation She was recently in [facility] 10/16/2024, she presented with fatigue, lightheadedness [...] confusion regarding her d (more content not included)...[facility]02-26-2025 Telephone encounter Note* Telephone Encounter - Christel Chacon MD - 01/07/2025 12:08 PM EST prn [id number] Miscellaneous Notes* Telephone Encounter - Christel Chacon MD - 01/07/2025 12:08 PM EST prn * Telephone Encounter - Jeanne Chacon - 01/07/2025 11:26 AM EST Called pt/spoke with spouse/he said she does not want to schedule with Dr Hurd/if she changes hermind she will call us back. documented in this encounterC[facility] [id number] Telephone encounter Note* Telephone Encounter - Jeanne Chacon - 01/07/2025 11:26 AM EST Called pt/spoke with spouse/he said she does not want to schedule with Dr Hurd/if she changes hermind she will call us back. [facility] [id number] Evaluation note* Diagnosis Onset Date Resolution Status [...] of acute March 24, 2025 1 :51pm [facility] Work Phone: [phone]) 897-986802-25-2025 Telephone encounter Note* Telephone Encounter - Jeanne Chacon - 01/06/2025 11:21 AM EST Left a message for pt to call Dr Chacon's office back to see if pt is planning on scheduling with Dr Hurd for sleep study. [facility] HospitalEjerjfguqx06-51-2543 Miscellaneous Notes* Telephone Encounter - Jeanne Chacon - 01/06/2025 11:21 AM EST Left a message for pt to call Dr Chacon's office back to see if pt is planning on scheduling with Dr Hurd for sleep study. documented in this encounterCedar [facility] [id number] Evaluation note* Diagnosis Onset Date Resolution Status [...] acute February 09, 2025 1:58pm Diarrhea acute March 31st, 20 25 1:58pm GERD (gastroesophageal reflu x disease) acute [...] x disease) acute March 10, 2025 11:03am [facility] Work Phone: 1([phone]) 451-155702-14-2025 Evaluation note* Diagnosis Onset Date Resolution Status [...] syndrome) acute March 10, 2025 11:[address] [facility] Work Phone: [phone] 358-567701-28-2025 Evaluation note* Diagnosis Onset Date Resolution Status [...] kidney disease acute February 19, 2025 8:32am [facility] Work Phone: 1([phone]) 337-189401-21-2025 NoteCardiovascular Medicine [facility] SUBJECTIVE Patient is here today for follow-up. [...] postchemotherapy and radiation She was recently in [facility] 10/16/2024, she presented with fatigue, lightheadedness [...] few months. Patient here for follow up [facility]. Her diuretic was switched again back [...] Oz of fluid a day per the manufacturing engineering professor. Her most recent discharge on 07/25/24 she [...] has noticed occasional horsen (more content not included)...[facility]12-31-[facility] Evaluation note* Diagnosis Onset Date Resolution [...] 2025 10:00am Diarrhea acute February 09 1:58pm [facility] Work Phone: [phone] 591-261912-24-2024 Hospital Discharge instructions Patient Education 11/04/2024 11:01:25 [...] Follow these instructions at home: Medicines Take xdal-sqj-qbherka and prescription medicines only as told by [...] provider. Document Revised: 07/20/2021 Document Reviewed: 07/20/2021 [employer] Patient Education 2023 Grid20/20. Follow Up Care 10/20/2024 13:37:01 With:SYDNIE HASSAN Address: [address] [facility] [place] [address] Business (1) When:6 weeks [facility] 12-24-2024 NotePatient Education Obstetrics and Gynecology Acute [...] these instructions at home: Medicines ??? Take vbkx-myr-vynrxzl and prescription medicines only as told by [...] provider. Document Revised: 07/20/2021 Document Reviewed: 07/20/2021 [employer] Patient Education ? 2023 Grid20/20.[facility] 11-03-2024 Evaluation note* Diagnosis Onset Date Resolution Status Admit Date A-fib acute November 03, 2024 11:24am Bradycardia acute October 11:24am CKD (chronic kidney disease) , stage IV acute November 03 11:24am Lumbar spondylosis acute [facility] 2023 11:24am Type 2 diabetes mellitus [...] of acute January 06, 2 025 3:21pm [facility] Work Phone: [phone] 251-371112-23-2024 Evaluation note* Diagnosis Onset Date Resolution Status Admit Date A-fib acute November 03, 2024 11:24am Bradycardia acute October 11:24am CKD (chronic kidney disease) , stage IV acute November 03 2 024 11:24am Lumbar spondylosis acute [facility] 2023 11:24am Type 2 diabetes mellitus wit [...] use of acute January 14, 2025 10:00am [facility] Work Phone: [phone]) 799-801212-20-2024 NoteCardiovascular Medicine [facility] SUBJECTIVE Patient is here today for hospital follow-up. She was in [facility] with bradycardia. HPI 10/31/2024 Joe Call is a 79 y.o. female here for follow-up. Patient has history of HFpEF, paroxysmal atrial fibrillation, hypertension, diabetes mellitus type 2, chronic kidney disease, remote history of breast cancer status postchemotherapy and radiation She was recently in [facility] 10/16/2024, she presented with fatigue, lightheadedness [...] few months. Patient here for follow up [facility]. Her diuretic was switched again back [...] Oz of fluid a day per the manufacturing engineering professor. Her most recent discharge on 07/25/24 she [...] pain Depressive disorder Diabe (more content not included)...[facility] 10-16-2024 Evaluation note* Diagnosis Onset Date [...] disease acu te December 09, 2024 1:24pm [facility] Work Phone: 1([phone]) 229-913911-27-2024 NoteCardiovascular Medicine [facility] SUBJECTIVE Chief Complaint Patient presents with [...] few months. Patient here for follow up [facility]. Her diuretic was switched again back [...] Oz of fluid a day per the manufacturing engineering professor. Her most recent discharge on 07/25/24 she [...] deficiency Lymphedema of left arm Morbid obesity ([facility]) Obstructive sleep apnea syndrome Paroxysmal supraventricular tachycardia ([facility]) Psoriasis Type 2 diabetes mellitus without complication ([facility]) Mixed hyperlipidemia Diastolic dysfunction Carotid bruit Chronic diarrhea Chronic low back pain Depressive disorder Diabetes mellitus ([facility]/HCC) Diabetic neuropathy ([facility]) Exocrine pancreatic insufficiency Gastroesophageal reflux disease Hypertension Hypomagnesemia Hypothyroidism Stage 3 chronic kidney disease ([facility]) Hyperlipidemia Atrial fibrillation ([facility]) Paroxysmal atrial fibrillation ([facility]) Abdominal swelling, generalized Acute on chronic diastolic CHF (congestive heart failure) ([facility]) Anxiety Back pain with history of spinal surgery Cervical disc disease Chalazion of right eye Dyspnea Hordeolum externum (stye) Immunization due Lactose intolerance skilled nursing (current) use of insulin ([facility]) Lumbar degenerative disc disease Lumbar spondylosis Lymph edema Macular degeneration Memory changes Osteoarthritis Secondary hyperparathyroidism ([facility]) Stress incontinence of urine Thrush of mouth and esophagus ([facility]) Urinary incontinence UTI (urinary tract infection) Yeast cystitis CARMELO (acute kidney injury) ([facility]) Tremor Acquired hammer toe of right foot Ataxia Balance disorder CHF (congestive heart failure) ([facility]) Dehydration Diabetic foot ([facility]) Diabetic peripheral neuropathy associated with type 2 diabetes mellitus ([facility]) Disability of walking Essential tremor LPRD (laryngopharyngeal reflux disease) Mass of right axilla Paresthesia Throat tightness Type 2 diabetes mellitus with hyperglycemia, with long-term current use of insulin ([facility]) Venous insufficiency (chronic) (peripheral) Debility Past Medical History: Diagnosis Date Atrial fibrillation ([facility]) Cancer ([facility]) Carotid artery stenosis Coronary (more content not included)...[facility] 10-08-2024 NotePatient here for 1 mo [...] tremors. All other systems reviewed and are negative.[facility] 10-01-2024 History of Present illness Narrative* [...] on chronic diastolic CHF (congestive heart failure) ([facility]) 05/20/2024 CARMELO (acute kidney injury) ([facility]) 05/20/2024 Anxiety 05/20/2024 Aortic valve disorder 08/20/2012 Back pain with history of spinal surgery 05/20/2024 Benign essential hypertension ([facility]) 04/02/2012 Carotid artery stenosis 07/20/2022 Carotid bruit 01/16/2023 Cervical disc disease 05/20/2024 Chalazion of right eye 05/20/2024 Chronic diarrhea 01/16/2023 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 Chronic low back pain 01/16/2023 Coronary atherosclerosis ([facility]) 03/20/2012 Depressive disorder ([facility]) 01/16/2023 Diabetes mellitus ([facility]) 07/03/2024 Diabetic foot ([facility]) 07/03/2024 Diabetic neuropathy ([facility]) 01/16/2023 Diabetic peripheral neuropathy associated with type 2 diabetes mellitus ([facility]) 07/03/2024 Diastolic dysfunction 09/05/2022 Disability of walking 07/03/2024 Diverticulitis of colon 03/20/2012 Dyspnea 05/20/2024 Exocrine pancreatic insufficiency ([facility]) 01/16/2023 Gastroesophageal reflux disease 01/16/2023 History of malignant neoplasm of breast 03/20/2012 Hordeolum externum (stye) 05/20/2024 Hyperlipidemia ([facility]) 07/03/2024 Hypertension ([facility]) 01/16/2023 Near syncope 07/03/2024 Hypomagnesemia 01/16/2023 Hypothyroidism ([facility]) 01/16/2023 Lumbar degenerative disc disease 05/20/2024 Lumbar spondylosis 05/20/2024 Lymph edema 05/20/2024 Lymphedema of left arm 03/20/2012 Macular degeneration 05/20/2024 Memory changes 05/20/2024 Morbid obesity ([facility]) 07/20/2022 Obstructive sleep apnea syndrome 03/20/2012 Paroxysmal atrial fibrillation ([facility]) 03/20/2012 Paroxysmal supraventricular tachycardia ([facility]) 03/26/2012 Psoriasis ([facility]) 03/20/2012 Secondary hyperparathyroidism ([facility]) 05/20/2024 Stage 3 chronic kidney disease (HCC) ([facility]) 01/16/2023 Hypertensive chronic kidney disease with stage 1 through stage 4 chronic kidney disease, or unspecified chronic kidney disease ([facility]) 07/03/2024 Thrush of mouth and esophagus ([facility]) 05/20/2024 Tremor 06/18/2024 Type 2 diabetes mellitus with hyperglycemia, with long-term current use of insulin ([facility]) 07/03/2024 Venous insufficiency (chronic) (peripheral) 07/03/2024 Essential tremor 07/08/2024 Balance disorder 07/08/2024 Ataxia 07/08/2024 Diabetic peripheral neuropathy ([facility]/HCC) 07/08/2024 Paresthesia 07/08/2024 Sensory ataxia 07/10/2024 Debility 07/10/2024 Weakness 07/10/2024 Paresthesias 07/10/2024 JED (obstructive sleep apnea) 07/22/2024 LPRD (laryngopharyngeal reflux disease) 07/22/2024 Throat tightness 07/22/2024 Resolved Ambulatory Problems Diagnosis Date Noted Acute pain of left shoulder 07/03/2024 Lactose intolerance 05/20/2024 skilled nursing (current) use of insulin ([facility]) 05/20/2024 Pharyngitis 07/03/2024 CKD (chronic kidney disease), stage IV ([facility]) 07/03/2024 Stress incontinence of urine 05/20/2024 Urinary incontinence 05/20/2024 UTI (urinary tract infection) 05/20/2024 Yeast cystitis 05/20/2024 Past Medical History: Diagnosis Date Anemia Breast cancer ([facility]) Coronary heart disease ([facility]) Diverticulosis GERD (gastroesophageal reflux disease) CA (myocardial infarction) ([facility]) Myocardial infarction ([facility]) Type II diabetes mellitus ([facility]) Past Surgical History: Procedure Laterality Date APPENDECTOMY [...] I will call pt. documented in this encounterCedar [facility] [id number] Telephone encounter Note* Telephone Encounter - Jeannebrodie Chacon - 09/30/2024 11:01 AM EST Pt is scheduled with Dr Chacon 10/01/2024. [facility] [id number] Miscellaneous Notes* Telephone Encounter - Jeannebrodie Chacon - 09/30/2024 11:01 AM EST Pt is scheduled with Dr Chacon 10/01/2024. * Telephone Encounter - Jeanne Chacon - 09/26/2024 8:50 AM EST Tried to call pt to schedule a follow up appt for labs, unable to leave a message. documented in this encounterCedar County Memorial [id number] Telephone encounter Note* Telephone Encounter - Jeannebrodie Chacon - 09/26/2024 8:50 AM EST Tried to call pt to schedule a follow up appt for labs, unable to leave a message. [facility] [id number] NoteCardiovascular Medicine [facility] SUBJECTIVE Chief Complaint Patient presents with [...] few months. Patient here for follow up [facility]. Her diuretic was switched again back [...] Oz of fluid a day per the manufacturing engineering professor. Her most recent discharge on 07/25/24 she [...] Psoriasis Type 2 diabetes mellitus without complication ([facility]) Mixed hyperlipidemia Diastolic dysfunction Carotid bruit Chronic diarrhea Chronic low back pain Depressive disorder Diabetes mellitus (CMS/HCC) Diabetic neuropathy (CMS/HCC) Exocrine pancreatic insufficiency Gastroesophageal reflux disease Hypertension Hypomagnesemia Hypothyroidism Stage 3 chronic kidney disease (CMS/HCC) Hyperlipidemia Atrial fibrillation (CMS/HCC) Paroxysmal atrial fibrillation ([facility]CC) Abdominal swelling, generalized Acute on chronic diastolic CHF (congestive heart failure) (CMS/HCC) Anxiety Back pain with history of spinal surgery Cervical disc disease Chalazion of right eye Dyspnea Hordeolum externum (stye) Immunization due Lactose intolerance 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 (CMS/HCC) Lumbar degenerative disc disease Lumbar spondylosis Lymph edema Macular degeneration Memory changes Osteoarthritis Secondary hyperparathyroidism (CMS/HCC) Stress incontinence of urine Thrush of mouth and esophagus (CMS/HCC) Urinary incontinence UTI (urinary tract infection) Yeast cystitis CARMELO (acute kidney injury) ([facility]) Tremor Acquired hammer toe of right foot Ataxia Balance disorder CHF (congestive heart failure) ([facility]/HCC) Dehydration Diabetic foot ([facility]/HCC) Diabetic peripheral neuropathy associated with type 2 diabetes mellitus ([facility]) Disability of walking Essential tremor LPRD (laryngopharyngeal reflux disease) Mass of right axilla Paresthesia Throat tightness Type 2 diabetes mellitus with hyperglycemia, with long-term current use of insulin ([facility]) Venous insufficiency (chronic) (peripheral) Debility Past Medical History: Diagnosis Date Atrial fibrillation ([facility]) Cancer ([facility]) Carotid artery stenosis Coronary artery disease Diabetes mellitus ([facility]) GERD (gastroesophageal reflux disease) Hypertension Sleep apnea Family History Problem Relation Name Age of Onset Coronary artery disease Other Diabetes Other Polycystic kidney disease Other Social History Tobacco Use Smoking status: Former Types: Ci (more content not included)...[facility] 09-03-2024 NotePatient here for 2 week follow up. Had echo last week and labs drawn this afternoon. Says she's feeling better. Still denies chest pain, palpitations, and bleeding on Xarelto. Review of Systems Cardiovascular: Positive for leg swelling (feet). Respiratory: Positive for shortness of breath. Musculoskeletal: Positive for muscle weakness. Neurological: Positive for tremors. All other systems reviewed and are negative.[facility] 08-20-2024 NotePatient here for follow up [facility]. Her diuretic was switched again back [...] tremors. All other systems reviewed and are negative.[facility] 08-20-2024 NoteCardiovascular Medicine [facility] SUBJECTIVE Chief Complaint Patient presents with [...] few months. Patient here for follow up [facility]. Her diuretic was switched again back [...] Oz of fluid a day per the manufacturing engineering professor. Her most recent discharge on 07/25/24 she [...] deficiency Lymphedema of left arm Morbid obesity ([facility]) Obstructive sleep apnea syndrome Paroxysmal supraventricular tachycardia ([facility]) Psoriasis Type 2 diabetes mellitus without complication ([facility]) Mixed hyperlipidemia Diastolic dysfunction Carotid bruit Chronic diarrhea Chronic low back pain Depressive disorder Diabetes mellitus ([facility]) Diabetic neuropathy ([facility]) Exocrine pancreatic insufficiency Gastroesophageal reflux disease Hypertension Hypomagnesemia Hypothyroidism Stage 3 chronic kidney disease ([facility]) Hyperlipidemia Atrial fibrillation ([facility]CC) Paroxysmal atrial fibrillation ([facility]) Abdominal swelling, generalized Acute on chronic diastolic CHF (congestive heart failure) ([facility] [facility]) Anxiety Back pain with history of spinal surgery Cervical disc disease Chalazion of right eye Dyspnea Hordeolum externum (stye) Immunization due Lactose intolerance skilled nursing (current) use of insulin ([facility]) Lumbar degenerative disc disease Lumbar spondylosis Lymph edema Macular degeneration Memory changes Osteoarthritis Secondary hyperparathyroidism ([facility]) Stress incontinence of urine Thrush of mouth and esophagus ([facility]) Urinary incontinence UTI (urinary tract infection) Yeast cystitis CARMELO (acute kidney injury) ([facility]) Tremor Acquired hammer toe of right foot Ataxia Balance disorder CHF (congestive heart failure) (CMS/FORMERLY [facility]) Dehydration Diabetic foot ([facility]) Diabetic peripheral neuropathy associated with type 2 diabetes mellitus ([facility]) Disability of walking Essential tremor LPRD (laryngopharyngeal reflux disease) Mass of right axilla Paresthesia Throat tightness Type 2 diabetes mellitus with hyperglycemia, with long-term current use of insulin ([facility]) Venous insufficiency (chronic) (peripheral) Debility Past Medical [...] All other systems reviewed (more content not included)...[facility]09-10-2024 History of Present illness Narrative* Christel [...] on chronic diastolic CHF (congestive heart failure) ([facility]/HCC) 05/20/2024 CARMELO (acute kidney injury) ([facility]) 05/20/2024 Anxiety 05/20/2024 Aortic valve disorder 08/20/2012 Back pain with history of spinal surgery 05/20/2024 Benign essential hypertension (CMS/[facility]) 04/02/2012 Carotid artery stenosis 07/20/2022 Carotid bruit 01/16/2023 Cervical disc disease 05/20/2024 Chalazion of right eye 05/20/2024 Chronic diarrhea 01/16/2023 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 Chronic low back pain 01/16/2023 Coronary atherosclerosis ([facility]) 03/20/2012 Depressive disorder (CMS/[facility]) 01/16/2023 Diabetes mellitus (CMS/[facility]) 07/03/2024 Diabetic foot ([facility]) 07/03/2024 Diabetic neuropathy ([facility]) 01/16/2023 Diabetic peripheral neuropathy associated with type 2 diabetes mellitus ([facility]) 07/03/2024 Diastolic dysfunction 09/05/2022 Disability of walking 07/03/2024 Diverticulitis of colon 03/20/2012 Dyspnea 05/20/2024 Exocrine pancreatic insufficiency ([facility]) 01/16/2023 Gastroesophageal reflux disease 01/16/2023 History of malignant neoplasm of breast 03/20/2012 Hordeolum externum (stye) 05/20/2024 Hyperlipidemia ([facility]) 07/03/2024 Hypertension ([facility]) 01/16/2023 Near syncope 07/03/2024 Hypomagnesemia 01/16/2023 Hypothyroidism ([facility]) 01/16/2023 Lumbar degenerative disc disease 05/20/2024 Lumbar spondylosis 05/20/2024 Lymph edema 05/20/2024 Lymphedema of left arm 03/20/2012 Macular degeneration 05/20/2024 Memory changes 05/20/2024 Morbid obesity ([facility]) 07/20/2022 Obstructive sleep apnea syndrome 03/20/2012 Paroxysmal atrial fibrillation (CMS/[facility]) 03/20/2012 Paroxysmal supraventricular tachycardia ([facility]) 03/26/2012 Psoriasis (CMS/[facility]) 03/20/2012 Secondary hyperparathyroidism ([facility]) 05/20/2024 Stage 3 chronic kidney disease (HCC) ([facility]) 01/16/2023 Hypertensive chronic kidney disease with stage 1 through stage 4 chronic kidney disease, or unspecified chronic kidney disease ([facility]) 07/03/2024 Thrush of mouth and esophagus ([facility]) 05/20/2024 Tremor 06/18/2024 Type 2 diabetes mellitus with hyperglycemia, with long-term current use of insulin ([facility]) 07/03/2024 Venous insufficiency (chronic) (peripheral) 07/03/2024 Essential tremor 07/08/2024 Balance disorder 07/08/2024 Ataxia 07/08/2024 Diabetic peripheral neuropathy ([facility]) 07/08/2024 Paresthesia 07/08/2024 Sensory ataxia 07/10/2024 Debility 07/10/2024 Weakness 07/10/2024 Paresthesias 07/10/2024 Resolved Ambulatory Problems Diagnosis Date Noted Acute pain of left shoulder 07/03/2024 Lactose intolerance 05/20/2024 skilled nursing (current) use of insulin ([facility]) 05/20/2024 Pharyngitis 07/03/2024 CKD (chronic kidney disease), stage IV ([facility]) 07/03/2024 Stress incontinence of urine 05/20/2024 Urinary incontinence 05/20/2024 UTI (urinary tract infection) 05/20/2024 Yeast cystitis 05/20/2024 Past Medical History: Diagnosis Date Anemia Breast cancer ([facility]) Coronary heart disease ([facility]) Diverticulosis GERD (gastroesophageal reflux disease) CA (myocardial infarction) ([facility]) Myocardial infarction ([facility]) Type II diabetes mellitus ([facility]) Past Surgical History: Procedure Laterality [...] contribute to throat fullness documented in this encounterCedar County Memorial [id number] History of Present illness Narrative* Lizett Jacinto, SHAUN - 07/10/2024 1:40 PM EDT Images from [...] HOSP F/U after being seen IP at [facility] for worsening SOB along with lower extremity edema and lower abdominal wall edema after being taken off of Lasix. Was discharged with instructions to f/u with PCP, Cardiologies, Teacher Education Instructor. States that she was dx with CHF [...] of left shoulder 07/03/2024 Anemia Breast cancer (CMS/HCC) CKD (chronic kidney disease), stage IV (CMS/HCC) 07/03/2024 Coronary heart disease (CMS/HCC) Diverticulosis GERD (gastroesophageal reflux disease) Lactose intolerance 05/20/2024 skilled nursing (current) use of insulin (CMS/HCC) 05/20/2024 CA (myocardial infarction) ([facility]) Myocardial infarction ([facility]) Pharyngitis 07/03/2024 Type II diabetes mellitus ([facility]) Urinary incontinence 05/20/2024 Yeast cystitis 05/20/2024 Past [...] as we have not seen her in [facility]. She never followed up. Dr. Choe saw [...] would need to be done through the pbx supervisor. The patient does have benzodiazepines which are [...] modifying techniques such as weighted silverware, utensil director field services and/or cups with lids on them. . [...] and the medication options Weighted silverware Utensil director field services to aid with writing and putting on [...] to clinic: 2 months documented in this encounterCedar County Memorial [id number] Hospital Discharge instructionsAmbulatory Orders* Referral to Urology Time Frame: 02/15/24, Location: [facility] Work Phone: 1(239) 951-666401-08-2024 Evaluation note* Encounter Date Diagnosis Assessment Notes Treatment Notes Treatment Clinical Notes Nov, Lumbar degenerative disc disease (ICD-10 - M51.36) [employer] Other 12-12-2023 Evaluation note* Encounter Date Diagnosis [...] will check vitamin B12 level next visit [employer] Other 12-11-2023 Evaluation note* Encounter Date Diagnosis Assessment Notes Treatment Notes Treatment Clinical Notes Oct, Lumbar degenerative disc disease (ICD-10 - M51.36) [employer] Other 12-07-2023 Evaluation note* Encounter Date Diagnosis Assessment Notes Treatment Notes Treatment Clinical Notes Oct, Bronchitis (ICD-10 - J40) Finish meds. No acute need for antibiotic at this time Oct, Diabetes mellitus with chronic kidney disease (ICD-10 - E11.22) Due for labs, followup w Dr. Mcconnell Oct, Lumbar degenerative disc disease (ICD-10 - M51.36) Pt will contact neurosurgery. [employer] Other 10-27-2023 Evaluation note* Encounter Date Diagnosis Assessment Notes Treatment Notes Treatment Clinical Notes Aug, Chronic kidney disease, stage 4 (severe) (ICD-10 - N18.4) [employer] Other 10-24-2023 Evaluation note* Encounter Date Diagnosis [...] (ICD-10 - M51.36) Pt requests referral to [place] [facility]. Reviewed OAR[facility] report. Aug, Stress incontinence of urine (ICD-10 - N39.3) R/o infection. Discussed could be related to her diabetes med as well. [employer] Other 10-12-2023 Evaluation note* Encounter Date Diagnosis Assessment Notes Treatment Notes Treatment Clinical Notes Aug, Lumbar degenerative disc disease (ICD-10 - M51.36) [employer] Other 09-11-2023 Evaluation note* Encounter Date Diagnosis Assessment Notes Treatment Notes Treatment Clinical Notes Jul, Lumbar degenerative disc disease (ICD-10 - M51.36) [employer] Other 09-05-2023 Evaluation note* Encounter Date Diagnosis [...] refill. Oarrs reviewed. No med changes needed. [employer] Other 07-05-2023 Evaluation note* Encounter Date Diagnosis Assessment Notes Treatment Notes Treatment Clinical Notes May, C. difficile colitis (ICD-10 - A04.72) [employer] Other 06-19-2023 Evaluation note* Encounter Date Diagnosis Assessment Notes Treatment Notes Treatment Clinical Notes Apr, Skin candidiasis (ICD-10 - B37.2) Discussed this is related to her hyperglycemia. Will treat w nystatin, but needs improvement in diet and glucose readings. Apr, Type 2 diabetes mellitus with hyperglycemia, unspecified whether terminal makeup operator insulin use (ICD-10 - E11.65) Pt agrees to see Dr Mcconnell again. Recently sent to ER for glucose of 608. Apr, Tremor of both hands (ICD-10 - R25.1) Referral to Dr. Lopez Apr, Memory changes (ICD- 10 - R41.3) Referral to Dr. Lopez Apr, Gastroesophageal reflux disease without esophagitis (ICD-10 - K21.9) Improved on carafate w PPI. [employer] Other 06-01-2023 Evaluation note* Encounter Date Diagnosis Assessment Notes Treatment Notes Treatment Clinical Notes Apr, Gastroesophageal ref lux disease without esophagitis (ICD-10 - K21.9) [employer] Other 04-28-2023 Evaluation note* Encounter Date Diagnosis [...] lab ordered on 02/20 today Feb, 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 (ICD-10 - Z79.4) [employer] Other 04-26-2023 Evaluation note* Encounter Date Diagnosis Assessment Notes Treatment Notes Treatment Clinical Notes Feb, C. difficile colitis (ICD-10 - A04.72) [employer] Other 04-17-2023 Evaluation note* Encounter Date Diagnosis Assessment Notes Treatment Notes Treatment Clinical Notes Feb, Gastroesophageal ref lux disease without esophagitis (ICD-10 - K21.9) [employer] Other 04-14-2023 Evaluation note* Encounter Date Diagnosis Assessment Notes Treatment Notes Treatment Clinical Notes Feb, Chronic diarrhea (ICD-10 - K52.9) [employer] Other 04-11-2023 Evaluation note* Encounter Date Diagnosis [...] it really overall has not been helpful. [employer] Other 01-13-2023 Evaluation note* Encounter Date Diagnosis Assessment Notes Treatment Notes Treatment Clinical Notes Nov, Type 2 diabetes mellitus with hyperglycemia, unspecified whether terminal makeup operator insulin use (ICD-10 - E11.65) [employer] Other 10-14-2021 Evaluation note* Encounter Date Diagnosis [...] training 6. Follow up in 3 months. [employer] Other Evaluation + Plan note No data available for this section General Surgery [place] Evaluation + Plan note Future Appointments Appointment Date:11/06/2024 11:00:00 AM Scheduled Provider: Location[facility] [place] Appointment Type:URO Nurse Visit Appointment Date:12/08/2024 11:40:00 AM Scheduled Provider:FRANCHESCA PERAZA PA-C Location:[facility] Appointment Type:URO Office Visit Diagnostic Tests Pending * Renal Function Panel 11/04/24 [facility] evaluation + Plan note Future Appointments Appointment Date:12/08/2024 11:40:00 AM Scheduled Provider:FRANCHESCA PERAZA PA-C Location:[facility] Appointment Type:URO Office Visit Appointment Date:12/18/2024 11:20:00 AM Scheduled Provider:FRANCHESCA PERAZA PA-C Location:[facility] Appointment Type:URO Complex Office Visit [facility] evaluation + Plan note Future Appointments Appointment Date:12/18/2024 11:20:00 AM Scheduled Provider:FRANCHESCA PERAZA PA-C Location:[facility] Appointment Type:URO Complex Office Visit [facility] evaluation noteNo InformationAmerican [facility] [employer] Other evaluation note[facility] [employer] Other evaluation noteAmerican [employer] Other evaluation note* Diagnosis Onset Date Resolution Status Chalazion of right eye acute Immunization due acute Urinary incontinence acute [facility] Work Phone: Evaluation note* Diagnosis Onset Date Resolution Status Chalazion of right eye acute Immunization due acute Urinary incontinence acute Diabetes mellitus with hyperglycemia acute Hypertension acute Hypothyroidism acute Lumbar spondylosis acute Secondary hyperparathyroidism acute [facility] Work Phone: Evaluation note* Diagnosis Onset Date [...] of mouth and esophagus acute [facility] Work Phone: evaluation note* Diagnosis Onset Date [...] UTI (urinary tract infection) acute [facility] Work Phone: Evaluation note* Diagnosis Onset Date [...] acute Thrush of mouth and esophagus acute [id number] acute Secondary hyperparathyroidism acute [facility] Work Phone: Evaluation note* Diagnosis Onset Date [...] acute Thrush of mouth and esophagus acute [id number] acute CKD (chronic kidney disease) stage 3, GFR 30-59 ml/min acute Hyperlipidemia acute [id number] acute Secondary hyperparathyroidism acute Type 2 diabetes mellitus wit h diabetic chronic kidney disease acute Tremor acute [facility] Work Phone: Evaluation note* Diagnosis Onset Date [...] acute Thrush of mouth and esophagus acute [id number] acute CKD (chronic kidney disease) stage 3, GFR 30-59 ml/min acute Hyperlipidemia acute [id number] acute Secondary hyperparathyroidism acute Type 2 diabetes mellitus wit h diabetic chronic kidney disease acute Acute on chronic diastolic C HF (congestive heart failure) acute [id number] acute Tremor acute [id number] acute [facility] Work Phone: Evaluation note* Diagnosis Onset Date [...] acute Thrush of mouth and esophagus acute [id number] acute CKD (chronic kidney disease) stage 3, GFR 30-59 ml/min acute Hyperlipidemia acute [id number] acute Secondary hyperparathyroidism acute Type 2 diabetes mellitus wit h diabetic chronic kidney disease acute Acute on chronic diastolic C HF (congestive heart failure) acute [id number] acute Tremor acute [id number] acute Mass of right axilla acute [facility] Work Phone: Evaluation note* Diagnosis Onset Date [...] acute Thrush of mouth and esophagus acute [id number] acute CKD (chronic kidney disease) stage 3, GFR 30-59 ml/min acute Hyperlipidemia acute [id number] acute Secondary hyperparathyroidism acute Type 2 diabetes mellitus wit h diabetic chronic kidney disease acute Acute on chronic diastolic C HF (congestive heart failure) acute [id number] acute Tremor acute [id number] acute Mass of right axilla acute CHF (congestive heart failure) acute Dehydration acute [id number] acute [id number] acute [facility] Work Phone: Evaluation note* Diagnosis Onset Date [...] acute Thrush of mouth and esophagus acute [id number] acute CKD (chronic kidney disease) stage 3, GFR 30-59 ml/min acute Hyperlipidemia acute [id number] acute Secondary hyperparathyroidism acute Type 2 diabetes mellitus wit h diabetic chronic kidney disease acute Acute on chronic diastolic C HF (congestive heart failure) acute [id number] acute Tremor acute [id number] acute Back pain with history of spinal surgery acute Cervical disc disease acute CKD (chronic kidney disease), stage IV acute Mass of right axilla acute CHF (congestive heart failure) acute Dehydration acute [id number] acute [id number] acute Dysuria acute [facility] Work Phone: Evaluation note* Diagnosis Onset Date Resolution Status Lumbar degenerative disc disease acute Thrush of mouth and esophagus acute [id number] acute CKD (chronic kidney disease) stage 3, GFR 30-59 ml/min acute Hyperlipidemia acute [id number] acute Secondary hyperparathyroidism acute Type 2 diabetes mellitus wit h diabetic chronic kidney disease acute Acute on chronic diastolic C HF (congestive heart failure) acute [id number] acute Tremor acute [id number] acute Back pain with history of spinal surgery acute Cervical disc disease acute CKD (chronic kidney disease), stage IV acute Mass of right axilla acute CHF (congestive heart failure) acute Dehydration acute [id number] acute [id number] acute Dysuria acute [facility] Work Phone: Evaluation note* Diagnosis JED (obstructive sleep apnea)- Primary Obstructive sleep apnea (adult) (pediatric) Hypothyroidism (acquired) ([facility]) Unspecified hypothyroidism [facility]* Diagnosis Essential tremor- Primary Diabetic polyneuropathy associated with type 2 diabetes mellitus ([facility]) Balance disorder Sensory ataxia Lack of coordination Debility Unspecified debility Weakness Other malaise and fatigue Paresthesias Disturbance of skin sensation documented in this encounter [facility] HealthcareEvaluation note* Diagnosis JED (obstructive sleep apnea)- Primary Obstructive sleep apnea (adult) (pediatric) LPRD (laryngopharyngeal reflux disease) Acute laryngitis, without mention of obstruction Throat tightness documented [facility] encounter [facility] HealthcareHistory general Narrative - Reported* Type [...] History COLONOSCOPY 04/10/2019 Hospitalization History See above [employer] Other History general Narrative - Reported* Type [...] History COLONOSCOPY 04/10/2019 Hospitalization History See above [facility] [employer] Other [employer] general Narrative - ReportedNobaimos [employer] Other [employer] general Narrative - ReportedNobaimos technologies [employer] Other [employer] general Narrative - Reported* Type Description Date [...] GERD 2022 Hospitalization History DIABETES ISSUES 2022 [employer] Other Hospital Discharge instructions No data available for this section General Surgery [place] [facility] Discharge instructionsAmbulatory Orders* Referral to Neurology Time Frame: 06/16/24, Location: None Selected [facility] Work Phone: Hospital Discharge instructionsAmbulatory Orders* Referral to ENT Time Frame: 06/25/24, Location: None Selected [facility] Work Phone: Hospital Discharge instructions Additional Instructions Follow-up with your primary care doctor as you might need medication adjustments to manage your high blood sugar Return to ED if develop worsening symptoms [facility] Work Phone: Progress note No data available for this section General Surgery [place] Reason for referral (narrative)No reason for referral information availableK[facility] Work Phone: Reason for visit Narrative* Consultation (Routine) - Closed Specialty Diagnoses / Procedures Referred By Contac t Referred To Contact Neurology Diagnoses Tremor, unspecified Procedures [place] OFFICE/OUTPATIENT NEW LOW MDM 30 MINUTES Shantel Steven MD [address] [place] [address] Gio Choe MD [address] [place] [address] Referral ID Status Reason Start Date Expiration Date V isits Requested Visits Authorized [id number] Closed Consult and Treat 06/27/2024 12/24/2024 1 1 [facility] Healthcare Summary Purpose Family History Relationship Condition [...] stage 4 (severe) (N18.4) Referral Organization [facility] Referring Provider First Name Shantel Referring Provider Last Name Tenisha Referring Provider Specialty Family Medi cine Referred Organization [facility] Nephrology Referred Provider Cherie Rapp Referred Address [address] [place],[address] Referred Provider Specialty Nephrology Referral Priority Routine General Notes Mariela Kingston 11:35:41 AM >received today, sent P2P Reason *FU 09/13 lumbar p ain Diagnosis 1 Lumbar degenerative disc disease (M51.36) Referral Organization [facility] [employer] Referring Provider First Name Shantel Referring Provider Last Name Tenisha Referring Provider Specialty [facility] Referred Organization [facility] Referred Provider Terell Soliz Referred Address [address] [place], [place],[address] Referred Provider Specialty Pain Medicin e Referral Priority Routine General Notes EfremaidenMariela reyes 03:09:25 PM >received today, waiting for notes to be locked Mariela Kingston 09/06/2023 10:08:29 AM >notes locked, referral faxed Clinical Notes F: [id number] Reason Poorly controlled di abetes Diagnosis 1 Type 2 diabetes maranda itus with hyperglycemia, unspecified whether terminal makeup operator insulin use (E11.65) Referral Organization [facility] [employer] helene Referring Provider First Name Shantel Referring Provider Last Name Tenisha Referring Provider Specialty [facility] Referred Organization Unknown Facility Referred Provider Joshua Mcconnell Referred Provider Specialty Internal Med icine Referral Priority Routine Reason tremor and memory lo ss - family history of dementia Diagnosis 1 Tremor of both hands (R25.1) Referral Organization [facility] [employer] Referring Provider First Name Shantel Referring Provider Last Name Tenisha Referring Provider Specialty [facility] Referred Organization Unknown Facility Referred Provider [...] disc disease Thrush of mouth and esophagus [id number] Secondary hyperparathyroidism Chief Complaint medication review Amb [...] disc disease Thrush of mouth and esophagus [id number] CKD (chronic kidney disease) stage 3, GFR 30-59 ml/min Hyperlipidemia [id number] Secondary hyperparathyroidism Type 2 diabetes mellitus with [...] disc disease Thrush of mouth and esophagus [id number] CKD (chronic kidney disease) stage 3, GFR 30-59 ml/min Hyperlipidemia [id number] 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 Acute on chronic diastolic CHF (congestive heart failure) [id number] Tremor [id number] Chief Complaint difficulty swallowin g Amb Documentation [...] disc disease Thrush of mouth and esophagus [id number] CKD (chronic kidney disease) stage 3, GFR 30-59 ml/min Hyperlipidemia [id number] 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 Acute on chronic diastolic CHF (congestive heart failure) [id number] Tremor [id number] Mass of right axilla Chief Complaint difficulty [...] disc disease Thrush of mouth and esophagus [id number] CKD (chronic kidney disease) stage 3, GFR 30-59 ml/min Hyperlipidemia [id number] 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 Acute on chronic diastolic CHF (congestive heart failure) [id number] Tremor [id number] Mass of right axilla Chief Complaint difficulty [...] disc disease Thrush of mouth and esophagus [id number] CKD (chronic kidney disease) stage 3, GFR 30-59 ml/min Hyperlipidemia [id number] 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 Acute on chronic diastolic CHF (congestive heart failure) [id number] Tremor [id number] Mass of right axilla CHF (congestive heart failure) Dehydration [id number] Chief Complaint difficulty swallowin g Amb Documentation [...] disc disease Thrush of mouth and esophagus [id number] CKD (chronic kidney disease) stage 3, GFR 30-59 ml/min Hyperlipidemia [id number] 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 Acute on chronic diastolic CHF (congestive heart failure) [id number] Tremor [id number] Back pain with history of spinal surgery Cervical disc disease CKD (chronic kidney disease), stage IV Mass of right axilla CHF (congestive heart failure) Dehydration [id number] Dysuria Chief Complaint throat problem SOB RENAL CKD 4 [facility]H follow up 3 month f/u Kidney injury, high BP R30.0 UA Amb Documentation TBH f/u:Pulmonary Adema Reason for Visit Lumbar degenerative disc disease Thrush of mouth and esophagus [id number] CKD (chronic kidney disease) stage 3, GFR 30-59 ml/min Hyperlipidemia [id number] 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 Acute on chronic diastolic CHF (congestive heart failure) [id number] Tremor [id number] Back pain with history of spinal surgery Cervical disc disease CKD (chronic kidney disease), stage IV Mass of right axilla CHF (congestive heart failure) Dehydration [id number] Dysuria Chief Complaint Admit Date gen weakness [...] 3 :52pm GERD (gastroesophageal reflux disease) D ecember 2023 3:52pm Hyperlipidemia October 16, 2024 3 :52pm [...] 2024 12:52pm GERD (gastroesophageal reflux disease) [facility] 2024 12:52pm Lumbar degenerative disc disease Februar y 2024 12:52pm Seborrhea capitis in adult December 12:52pm Type 2 diabetes mellitus wit h diabetic chronic kidney disease December 26, 2024 12:52pm Acute on chronic diastolic CHF (congesti ve heart failure) January 06, 2025 3:21pm CKD (chronic kidney disease), stage IV [facility] 2024 3:21pm GERD (gastroesophageal reflux disease) [facility] 2024 3:21pm Lumbar degenerative disc disease 2024 [...] 025 12:52pm Gastroesophageal reflux disease (GERD) [facility] 2024 3:21pm TB ER:Abd Pain/Chronic Pain January [...] CKD (chronic kidney disease), stage IV [facility] 2024 3:21pm GERD (gastroesophageal reflux disease) [facility] 2024 3:21pm Lumbar degenerative disc disease Februar 2024 3:21pm Type 2 diabetes mellitus wit h hyperglycemia, with long-term current use of January 06, 2025 3:21pm Acute on chronic diastolic CHF (congesti ve heart failure) January 14, 2025 10:00am C. difficile diarrhea January 14, 2025 10 :00am GERD (gastroesophageal reflux disease) M [facility] 2024 10:00am Type 2 diabetes mellitus wit h hyperglycemia, with long-term current use of January 14, 2025 10:00am Chief Complaint Admit Date RENAL HOSP F/U November 11, 2024 1:26pm Amb Documentation December 08, 2024 2 :07pm 3 month f/u-HIGH RISK December 09, 2024 1:24pm Gerd/Diabetes-HIGH RISK December 26 2 025 12:52pm Gastroesophageal reflux disease (GERD) [facility] 2024 3:21pm TBH ER:Abd Pain/Chronic [...] 2024 12:52pm [facility]es[facility] disease[facility] 12:52[facility] Lumbar degenerative disc disease Februar y 2024 12:52pm Seborrhea capitis in adult December 12:52pm Type 2 diabetes mellitus wit h diabetic chronic kidney disease December 26, 2024 12:52pm Acute on chronic diastolic CHF (congesti ve heart failure) January 06, 2025 3:21pm CKD (chronic kidney disease), stage IV F ebruary 2024 3:21pm GERD (gastroesophageal reflux disease) [facility] 2024 3:21pm Lumbar degenerative disc disease Februar 2024 3:21pm Type 2 diabetes mellitus wit h hyperglycemia, with long-term current use of January 06, 2025 3:21pm Acute on chronic diastolic CHF (congesti ve heart failure) January 14, 2025 10:00am C. difficile diarrhea January 14, 2025 10 :00am GERD (gastroesophageal reflux disease) [facility] 2024 10:00am Type 2 diabetes mellitus wit h hyperglycemia, with long-term current use of January 14, 2025 10:00am Diarrhea February 09, 2025 1:5 8pm Chief Complaint Admit Date Amb Documentation December 08, 2024 2 :07pm 3 month f/u-HIGH RISK December 09, 2024 1:24pm Gerd/Diabetes-HIGH RISK December 26, 2 025 12:52pm Gastroesophageal reflux disease (GERD) [facility] 2024 3:21pm TBH ER:Abd Pain/Chronic [...] 2024 12:52pm GERD (gastroesophageal reflux disease) [facility] 2024 12:52pm Lumbar degenerative disc disease uar y 2024 12:52pm Seborrhea capitis in adult December 12:52pm Type 2 diabetes mellitus wit h diabetic chronic kidney disease December 26, 2024 12:52pm Acute on chronic diastolic CHF (congesti ve heart failure) January 06, 2025 3:21pm CKD (chronic kidney disease), stage IV [facility] 2024 3:21pm GERD (gastroesophageal reflux disease) [facility] 2024 3:21pm Lumbar degenerative disc disease Februar 2024 3:21pm Type 2 diabetes mellitus wit h hyperglycemia, with long-term current use of January 06, 2025 3:21pm Acute on chronic diastolic CHF (congesti ve heart failure) January 14, 2025 10:00am C. difficile diarrhea January 14, 2025 10 :00am GERD (gastroesophageal reflux disease) [facility] 2024 10:00am Type 2 diabetes mellitus wit [...] Chief Complaint Admit Date Gerd/Diabetes-HIGH RISK December 26 025 12:52pm Gastroesophageal reflux disease (GERD) [facility] 2024 3:21pm [facility] ER:Abd Pain/Chronic [...] 2024 12:52pm GERD (gastroesophageal reflux disease) [facility] 2024 12:52pm Lumbar degenerative disc disease uar 2024 12:52pm Seborrhea capitis in adult December 12:52pm Type 2 diabetes mellitus wit h diabetic chronic kidney disease December 26, 2024 12:52pm Acute on chronic diastolic CHF (congesti ve heart failure) January 06, 2025 3:21pm CKD (chronic kidney disease), stage IV [facility] 2024 3:21pm GERD (gastroesophageal reflux disease) [facility] 2024 3:21pm Lumbar degenerative disc disease Februar y 2024 3:21pm Type 2 diabetes mellitus wit h hyperglycemia, with long-term current use of January 06, 2025 3:21pm Acute on chronic diastolic CHF (congesti ve heart failure) January 14, 2025 10:00am C. difficile diarrhea January 14, 2025 10 :00am GERD (gastroesophageal reflux disease) [facility] 2024 10:00am Type 2 diabetes mellitus wit h hyperglycemia, with long-term current use of January 14, 2025 10:00am Acute on chronic diastolic CHF (congesti ve heart failure) February 09, 2025 1:58pm CKD (chronic kidney disease), stage IV [facility] 2024 1:58pm Diarrhea February 09, 2025 1:5 8pm GERD (gastroesophageal reflux disease) [facility] 2024 1:58pm Lumbar degenerative disc disease January [...] 2024 12:52pm GERD (gastroesophageal reflux disease) [facility] 2024 12:52pm Lumbar degenerative disc disease Februar y 2024 12:52pm Seborrhea capitis in adult December 12:52pm Type 2 diabetes mellitus wit h diabetic chronic kidney disease December 26, 2024 12:52pm Acute on chronic diastolic CHF (congesti ve heart failure) January 06, 2025 3:21pm CKD (chronic kidney disease), stage IV [facility] 2024 3:21pm GERD (gastroesophageal reflux disease) [facility] 2024 3:21pm Lumbar degenerative disc disease 2024 3:21pm Type 2 diabetes mellitus wit h hyperglycemia, with long-term current use of January 06, 2025 3:21pm Acute on chronic diastolic CHF (congesti ve heart failure) January 14, 2025 10:00am C. difficile diarrhea January 14, 2025 10 :00am GERD (gastroesophageal reflux disease) [facility] 2024 10:00am Type 2 diabetes mellitus wit h hyperglycemia, with long-term current use of January 14, 2025 10:00am Acute on chronic diastolic CHF (congesti ve heart failure) February 09, 2025 1:58pm CKD (chronic kidney disease), stage IV [facility] 2024 1:58pm Diarrhea February 09, 2025 1:5 8pm GERD (gastroesophageal reflux disease) [facility] 2024 1:58pm Lumbar degenerative disc disease [...] Admit Date Gastroesophageal reflux disease (GERD) [facility] 2024 3:21pm [facility] ER:Abd Pain/Chronic [...] CKD (chronic kidney disease), stage IV [facility] 2024 3:21pm GERD (gastroesophageal reflux disease) [facility] 2024 3:21pm Lumbar degenerative disc disease uar 2024 3:21pm Type 2 diabetes mellitus wit h hyperglycemia, with long-term current use of January 06, 2025 3:21pm Acute on chronic diastolic CHF (congesti ve heart failure) January 14, 2025 10:00am C. difficile diarrhea January 14, 2025 10 :00am GERD (gastroesophageal reflux disease) [facility] 2024 10:00am Type 2 diabetes mellitus wit h hyperglycemia, with long-term current use of January 14, 2025 10:00am Acute on chronic diastolic CHF (congesti ve heart failure) February 09, 2025 1:58pm CKD (chronic kidney disease), stage IV [facility] 2024 1:58pm Diarrhea February 09, 2025 1:5 8pm GERD (gastroesophageal reflux disease) [facility] 2024 1:58pm Lumbar degenerative disc disease [...] 2025 10:19am GERD (gastroesophageal reflux disease) [facility] 20[facility] 2:10pm IBS (irritable bowel syndrome) April [...] 12:10pm R30.0 June 02, 2025 12:3 0pm [facility] F/U June 04, 2025 9:49 am Chief Complaint Admit Date Concerns March 24, 2025 1:51p m HIGH RISK, rash April 16, 2025 10:19 am 6 week follow up April 21, 2025 2:10 pm Amb Documentation May 13, 2025 9:25a m [facility]; fall; discuss eczema May 21 10:52am UA, confusion, hallucination June 02, 2025 12:10pm R30.0 June 02, 2025 12:3 0pm [facility] F/U June 04, 2025 9:49 am [...] current use of June 04, 2025 9:49am Chief Complaint Admit Date 6 week follow up April 21, 2025 2:10 pm Amb Documentation May 13, 2025 9:25a m [facility]; fall; discuss eczema May 21 10:52am UA, confusion, hallucination June 02, 2025 12:10pm R30.0 June 02, 2025 12:3 0pm [facility] F/U June 04, 2025 9:49 am Amb Documentation June 10, 2025 9:18 am CHF CKD June 15, 2025 2:0 0pm Amb Documentation June 22, 2025 9: 34am Amb Documentation July 01, 2025 11 :13am Amb Documentation July 01, 2025 1: 34pm Hospital f/u-HIGH RISK July 20 1:56pm Reason for Visit Admit Date GERD (gastroesophageal reflux disease) J une 2024 [...] current use of June 04, 2025 9:49am CHF (congestive heart failure) July 20, 2025 1:56pm Additional Source Comments INFORMATION SOURCE (unrecogn ized section and content) DATE CREATED AUTHOR 05/10/2018 [facility] DATE CREATED AUTHOR AUTHOR'S ORGANIZ ATION 03/10/2023 [facility] DATE CREATED AUTHOR AUTHOR'S ORGANIZ ATION 10/04/2024 [facility] EPIC DATE CREATED AUTHOR AUTHOR'S ORGANIZ ATION 12/21/2024 [facility] DATE CREATED AUTHOR AUTHOR'S ORGANIZ ATION 07/17/2025 [facility] DATE CREATED AUTHOR AUTHOR'S ORGANIZ ATION 07/17/2025 [facility] REASON FOR VISIT (unrecogniz ed section and [...] Care Provider Active Start: March 13, 2025 Wnady Alvarez CMA Attending Provider Active Start: March [...] 2025 Martine Guerrero Attending Provider Active Start: [facility] 2024 Team Status: Active Member [...] Status Dates Shantel Steevn MD Primary Care Provider Active Start: October [...] Lamine Smith MD Other Provider Active Start: ec2023 Rica Brownlee MD Other Provider Active Start: [...] Care Provider Active Start: May 04, 2024 Lamnie Singh Attending Provider Active Start: May 04, [...] End: January 18, 2024 Franchesca Sullivan APRN DATA ENTRY SUPERVISOR-C Attending Provider Act chiqui Start: January 18, [...] August 07, 2024 End: August 07, 2024 [employer] Relationship Specialty Start Date End Date Shantel Steven MD [address] [place] [phone] PCP - General Family Medicine 06/25/24 [employer] Relationship Specialty Start Date End Date Shantel Steven MD [address] [place] [phone] PCP - General Family Medicine 06/25/24 [employer] Relationship Specialty Start Date End Date Shantel Steven MD [address] [place] [phone] PCP - General Family Medicine 06/25/24 [employer] Relationship Specialty Start Date End Date Shantel Steven MD [address] [place] [facility] [phone] PCP - General Family Medicine 06/25/24 [employer] Relationship Specialty Start Date End Date Shantel Steven MD [address] [place] [facility] [place] [address] PCP - General Family Medicine 06/25/24 [employer] Relationship Specialty Start Date End Date Shantel Steven MD [address] [place] [facility] [place] [address] PCP - General Family Medicine 06/25/24 [employer] Relationship Specialty Start Date End Date Shantel Steven MD [address] [place] [facility] [place] [address] PCP - General Family Medicine 06/25/24 [employer] Relationship Specialty Start Date End Date Shantel Steven MD [address] [place] [facility] [place] [phone] PCP - General Family Medicine 06/25/24 Team [...] June 15, 2025 End: June 15, 2025 Team Status: Inactive Member Role Status Cecille Steven MD Primary Care Provider Active Start: June 15, 2025 End: June 15, 2025 Shantel Steven MD Attending Provider Active St art: June 15, 2025 End: June 15, 2025 Team Status: Active Member Role Status Cecille Steven MD Primary Care Provider Active Start: June 19, 2025 Outside Provider Attending Provider Active Start : June 19, 2025 Team Status: Active Member Role Status Cecille Steven MD Primary Care Provider Active Start: June 22, 2025 Wandy Alvarez CMA Attending Provider Active Start: June 22, 2025 Team Status: Active Member Role Status Cecille Steven MD Primary Care Provider Active Start: June 28, 2025 Jarred Galan DO Attending Provider Active S tart: June 28, 2025 Team Status: Active Member Role Status Cecille Steven MD Primary Care Provider Active Start: June 29, 2025 Monica Stewart MD Attending Provider Active Sta rt: June 29, 2025 Team Status: Active Member Role Status Cecille Stewart MD Attending Provider Active Sta rt: June 30, 2025 Shantel Steven MD Primary Care Provider Active Start: June 30, 2025 Team Status: Active Member Role Status Cecille Steven MD Primary Care Provider Active Start: July 01, 2025 Wandy Alvarez CMA Attending Provider Active Start: July 01, 2025 Team Status: Inactive Member Role Status Cecille Steven MD Primary Care Provider Active Start: July 20, 2025 End: July 20, 2025 Shantel Steven MD Attending Provider Active St art: July 20, 2025 End: July 20, 2025 Goals (unrecognized section and content) Goals [...] BE BASED ON THE PRIMARY CLINICAL RECORDS. [employer] provides no warranty or guarantee of the accuracy or completeness of information in this document.
--- NOTE | 2025-07-22 05:18 | XR_ITS ---
The [address] [address] Patient Name: JOE CALL MRN: [id number] date: 1945 Sex: F Assigned Patient Location: ER Current Patient Location: ED.MAIN Accession/Order Number: [id number] Exam Date: 07/22/2025 05:55 Report Date: 07/22/2025 08:29 At the request of: ANALISA WHYTE MD Procedure: XR chest 1V PORTABLE AP ERECT CHEST 0536 hours CLINICAL HISTORY: short of breath for the past few days COMPARISON: 06/28/[address] 05/30/2020 There are continued interstitial changes and groundglass density, increasing at the lower lung on the right. Persistent pleural-parenchymal opacity is seen at the lower half of the left hemithorax. There is blunting of the right costophrenic angle which may be pleural effusion. There is no pneumothorax. The left heart border is obscured. Otherwise the cardiac and mediastinal contours have not significantly changed. The bony thorax appears intact. There is dextroscoliotic curvature. XR/XR chest 1V IMPRESSION: CONTINUED PLEURAL-PARENCHYMAL CHANGES, SIMILAR ON THE LEFT AND POTENTIALLY WORSE THAN ON THE RIGHT. Impression dictated by: Paola Dexter M.D. 07/22/2025 8:29 AM Dictation Location: [place] [address] Electronically authenticated by: [id number] Date: 07/22/2025 08:29
--- NOTE | 2025-07-22 05:20 | ED.SOB1 ---
HPI - SOB/Dyspnea General Chief Complaint: Shortness of Breath/Dyspnea Stated Complaint: AMS,SOB MULTIPLE DAYS Time Seen by Provider: 07/22/25 05:13 Source: other Source comment: EMS Mode of arrival: ambulance History of Present Illness HPI Narrative: patient presents with acute shortness of breath over the past couple of days. History of CHF, IDDM and 02 dependent. wears 02 2LNC at home. 02 increased to #L NC by Squad. She denies chest pain. Only complaint is she can't breath. No fever, nausea or abdominal pain Related Data Home Medications ?Medication ?Instructions ?Recorded ?Confirmed insulin glargine 100 unit/mL (3 15 unit subcut BEDTIME 04/25/23 07/22/25 mL) subcutaneous pen (Lantus Solostar U-100 Insulin) alprazolam 0.25 mg tablet 0.25 mg PO TID PRN anxiety 04/30/24 07/22/25 levothyroxine 125 mcg tablet 125 mcg PO .acb 04/30/24 07/22/25 insulin NPH isoph U-100 human 100 1 unit subcut AC 06/09/24 07/22/25 unit/mL (3 mL) subcutaneous pen (Novolin N FlexPen) cholecalciferol (vitamin D3) 125 125 mcg PO DAILY 06/18/24 07/22/25 mcg (5,000 unit) tablet (Vitamin D3) rivaroxaban 20 mg tablet (Xarelto) 20 mg PO DAILY 06/18/24 07/22/25 vit C 226 mg-vit E 90 mg-copper 1 cap PO BID 06/18/24 07/22/25 0.8 mg-zinc oxide-lutein 5 mg capsule (PreserVision Lutein) famotidine 20 mg tablet 20 mg PO .qhs 07/24/24 07/22/25 omeprazole 40 mg capsule,delayed 40 mg PO .acb 07/24/24 07/22/25 release buspirone 5 mg tablet 5 mg PO BID 01/25/25 07/22/25 duloxetine 20 mg capsule,delayed 20 mg PO DAILY 01/25/25 07/22/25 release furosemide 40 mg tablet 40 mg PO .qd 07/22/25 07/22/25 Previous Rx's ?Medication ?Instructions ?Recorded metoprolol tartrate 25 mg tablet 25 mg PO BID #60 tabs 05/31/25 amlodipine 5 mg tablet 5 mg PO QD 30 days #30 tabs 06/10/25 potassium chloride 20 mEq 20 meq PO DAILY #30 tabs 07/01/25 tablet,extended release Allergies Allergy/AdvReac Type Severity Reaction Status Date / Time Iodinated Contrast Media Allergy Intermediate Hives Verified 07/22/25 05:01 shellfish derived Allergy Intermediate Hives Verified 07/22/25 05:01 Sulfa (Sulfonamide Allergy Unknown Rash Verified 07/22/25 05:01 Antibiotics) Review of Systems ROS Status of ROS 10 or more systems reviewed and unremarkable except as noted in history and below [facility] Medical History (Updated 07/22/25 @ 11:27 by Monica Stewart MD) Noncompliance ?Z91.199 - Patient's noncompliance with other medical treatment and regimen due to unspecified reason (ICD-10) Diastolic congestive heart failure ?I50.30 - Unspecified diastolic (congestive) heart failure (ICD-10) CHF (congestive heart failure) ?I50.9 - Heart failure, unspecified (ICD-10) GERD without esophagitis ?K21.9 - Gastro-esophageal reflux disease without esophagitis (ICD-10) Anxiety ?F41.9 - Anxiety disorder, unspecified (ICD-10) Intermittent palpitations ?R00.2 - Palpitations (ICD-10) Acute hyperglycemia ?R73.9 - Hyperglycemia, unspecified (ICD-10) Acute kidney injury ?N17.9 - Acute kidney failure, unspecified (ICD-10) Acute on chronic clinical systolic heart failure ?I50.23 - Acute on chronic systolic (congestive) heart failure (ICD-10) Acute renal failure ?N17.9 - Acute kidney failure, unspecified (ICD-10) Hyperkalemia ?E87.5 - Hyperkalemia (ICD-10) Acute dehydration ?E86.0 - Dehydration (ICD-10) Diabetes mellitus with hyperglycemia, with long-term current use of insulin ?E11.65 - Type 2 diabetes mellitus with hyperglycemia (ICD-10) ?Z79.4 - joint terminal attack controller (current) use of insulin (ICD-10) Paroxysmal atrial fibrillation ?I48.0 - Paroxysmal atrial fibrillation (ICD-10) Hypothyroidism (acquired) ?E03.9 - Hypothyroidism, unspecified (ICD-10) Hypertension ?I10 - Essential (primary) hypertension (ICD-10) Hypokalemia ?E87.6 - Hypokalemia (ICD-10) CHF (congestive heart failure) ?I50.9 - Heart failure, unspecified (ICD-10) Cataracts, bilateral ?H26.9 - Unspecified cataract (ICD-10) Breast cancer ?C50.919 - Malignant neoplasm of unspecified site of unspecified female breast (ICD-10) Surgical History (Updated 07/05/25 @ 00:00 by ) History of cholecystectomy ?Z90.49 - Acquired absence of other specified parts of digestive tract (ICD-10) History of appendectomy ?Z90.49 - Acquired absence of other specified parts of digestive tract (ICD-10) History of hysterectomy ?Z90.710 - Acquired absence of both cervix and uterus (ICD-10) H/O lumbosacral spine surgery ?Z98.890 - Other specified postprocedural states (ICD-10) H/O bilateral mastectomy ?Z90.13 - Acquired absence of bilateral breasts and nipples (ICD-10) Family History Other Family history of CHF (congestive heart failure) Family history of cancer Family history of diabetes mellitus Family history of hypertension H/O mastectomy Social History Within the past year, how often did you have a drink containing alcohol: never Within the past year, how often did you have six or more drinks on one occasion: never Score interpretation: A score less than 3 is consistent with normal alcohol consumption. Smoking status: Never smoker Second hand tobacco smoke exposure: No Non-prescribed substance use: denies use Previous occupational history: retired [employer] Highest level of school completed/degree received: high school graduate Do you want help with school or training: No Are you now , , , , never or living with a partner: In a typical week, how many times do you talk on the telephone with family, friends, or neighbors: twice per week How often do you get together with friends or relatives: twice per week How often do you attend voodoo or gnosticist services: never Do you belong to any clubs or organizations such as voodoo groups unions, fraDianDian or athletic groups, or school groups: no Total score: 2 Score interpretation: A score of greater than or equal to 2 indicates the lowest level of social isolation. Little interest or pleasure in doing things: not at all Feeling down, depressed, or hopeless: not at all Feel stressed/tense/nervous/anxious/difficulty sleeping: not at all Due to disability, difficulty making decisions: No Do you think of yourself as: straight/heterosexual Gender Identity: female Exam Constitutional Vital Signs, click to edit/add: Last Vital Signs Temp 97.7 F 07/23/25 19:25 Pulse 68 07/23/25 23:44 Resp 18 07/23/25 19:25 BP 148/72 H 07/23/25 19:25 Pulse Ox 96 07/23/25 19:25 O2 Del Method Nasal Cannula 07/23/25 19:25 O2 Flow Rate 2 07/23/25 19:25 Common normals: oriented x3 General appearance: in distress and lethargic HENMT Common normals: normocephalic and head/scalp atraumatic Eye Common normals: EOMs intact bilaterally and conjunctivae normal Respiratory Other: faint crackles Cardio Common normals: regular rate, regular rhythm, S1 normal heart sound and S2 normal heart sound GI Common normals: Normal to inspection, nondistended, normoactive bowel sounds present, soft to palpation and non-tender Extremity Other: lymphedema LLE Neuro Common normals: oriented x3, CN's II-XII intact bilaterally and moves all extremities Psych Appearance: grossly normal Course Course Hospital Course: Mrs. Luevano is a 80-year-old female who came in with shortness of breath and was found to have the following: Acute hypoxic respiratory failure, tachypnea, respiratory distress saturation 91% on presentation. Respiratory rate is about 27 on presentation. Likely multifactorial caused by Acute diastolic heart failure and pulmonary edema, likely triggered by hypertensive urgency. Chest x-ray showed worsening pulmonary interstitial edema and pleural effusion. Suspect underlying restrictive lung disease secondary to obesity. Pleural effusion. Bilateral. Likely transudative. Could not exclude the possibility of exudative process. Hypertensive urgency. Chronic hypoxic respiratory failure on oxygen. Continue patient on intravenous diuretics Input and output measurement. Thus far she is 1.5 negative balance. Blood pressure control. Hypertensive urgency. Recurrent. That is probably contributing to her recurrent episode of CHF. Rule out the possibility of secondary hypertension such as pheochromocytoma, hyperaldosteronnemia or renal artery stenosis. Patient also may have sleep apnea contributing to her resistant hypertension that is probably contributing to her recurrent episode of CHF Requested to check metanephrine, aldosterone, renin, aldosterone and renin ratio will be calculated. If ratio is above 20, most likely patient has hyper Angel I also requested renal artery Doppler to rule out renal artery stenosis. This came back negative for significant renal artery stenosis Lab work for secondary hypertension is still pending. These would need to be followed up by PCP. Paroxysmal A-fib. Patient is in sinus rhythm on presentation Continue Xarelto Continue beta-favian. Hypothyroidism Continue Synthroid. CKD stage III At baseline at this time Monitor kidney function test daily Acceptable rise of creatinine for the sake of keeping patient in euvolemic state. Functional impairment PT OT treatment Patient had declined to go to any skilled facility at home. She does have adequate support at home. She lives with her and son. She has rollator Morbid obesity Recommended dietitian consultation. Recommend lifestyle modification and exercise. Patient uses a scooter at home Diabetes, fair control. Continue home regimen. Sliding scale coverage. DVT prophylaxis Patient is already on Xarelto Chronic medical conditions not listed above, incidental findings seen on labs and imaging. These would need to be addressed. Could be addressed when time and condition are appropriate. Could be addressed in the outpatient setting by PCP collaboration with other needed outpatient providers. Acute delirium Patient developed confusion, disorientation, agitation and restlessness. Patient was requesting to be discharged home. Her came and he could not settle her down. decided to sign her out of the hospital AGAINST MEDICAL ADVICE understanding potential risk and implication of leaving the hospital against recommendation including but not limited to worsening respiratory failure and even .. This is not unusual for this patient. When I admitted her in May she had a similar episode of acute delirium. Her and her son ended up taking her back home. With the AMA discharge, unfortunately patient left the hospital without appropriate discharge medications, outpatient follow-up, instructions and other needed appropriate discharge items. I am hoping that her PCP will be able to review hospital records proceed with additional needed diagnostic and therapeutic intervention in the outpatient setting Specifically looking for pending metanephrine, aldosterone and renin level. Vital Signs Vital signs: Vital Signs Temperature 98.4 F 07/22/25 05:01 Pulse Rate 79 07/22/25 05:01 Respiratory Rate 50 H 07/22/25 05:01 Pulse Oximetry 95 07/22/25 05:01 Oxygen Delivery Method Nasal Cannula 07/22/25 05:01 Oxygen Delivery Flow Rate 3 07/22/25 05:01 Temperature 97.7 F 07/23/25 19:25 Pulse Rate 68 07/23/25 23:44 Respiratory Rate 18 07/23/25 19:25 Blood Pressure 148/72 H 07/23/25 19:25 Pulse Oximetry 96 07/23/25 19:25 Oxygen Delivery Method Nasal Cannula 07/23/25 19:25 Oxygen Delivery Flow Rate 2 07/23/25 19:25 MDM - SOB/Dyspnea MDM Narrative Medical decision making narrative: patient presents with worsening dyspnea over the past couple of days. presents via [facility] with tachypnea. No chest pain. Exam with faint crackles. Past history of diastolic CHF. xray with left pleural effusion(old) and pulmonary vascular congestion. Lasix 60 ordered along with albuterol NMT. WBC 6.1. Troponin and BNP, CMP pending troponin is normal. BNP elevated as in the past. Hypertension treated with Hydralazine. Discussed with the hospitalist and patient accepted for admission Lab Data Labs: Lab Results 07/22/25 Range/Units 05:55 WBC 6.1 (4.0-11.0) 10^3/uL RBC 3.54 L (4.20-5.40) 10^6/uL Hgb 10.5 L (12.0-16.0) g/dL Hct 32.6 L (36.0-48.0) % MCV 92.1 (81.0-99.0) fL MCH 29.7 (26.7-34.0) pg MCHC 32.2 (29.9-35.2) g/dL RDW 15.5 H (11.0-15.0) % Plt Count 200 (150-450) 10^3/uL MPV 10.5 (9.5-13.5) fL Neut % (Auto) 73.3 (43.0-75.0) % Lymph % (Auto) 15.0 L (20.5-60.0) % Swift % (Auto) 8.2 (1.7-12.0) % Eos % (Auto) 2.3 (0.9-7.0) % Baso % (Auto) 1.0 (0.2-2.0) % Neut # (Auto) 4.5 (1.4-6.5) 10^3/uL Lymph # (Auto) 0.9 L (1.2-3.8) 10^3/uL Swift # (Auto) 0.5 (0.3-0.8) 10^3/uL Eos # (Auto) 0.1 (0.0-0.7) 10^3/uL Baso # (Auto) 0.1 (0.0-0.1) 10^3/uL Abs Immat Gran (auto) 0.01 (0.00-0.03) 10^3/uL Imm/Tot Granulo (auto) 0.2 (0.0-0.5) % Sodium 143 (136-145) mmol/L Potassium 4.8 (3.5-5.1) mmol/L Chloride 109 H (98-107) mmol/L Carbon Dioxide 26.1 (21.0-32.0) mmol/L Anion Gap 12.7 BUN 39.0 H (7.0-18.0) mg/dL Creatinine 1.45 H (0.55-1.02) mg/dL Est GFR ( Amer) 42 L (>=60 mL/min/1.73m^2) Est GFR (Non-Af Amer) 35 L (>=60 mL/min/1.73m^2) BUN/Creatinine Ratio 26.9 Glucose 150 H (74-106) mg/dL Calcium 8.2 L (8.5-10.1) mg/dL Total Bilirubin 0.4 (0.2-1.0) mg/dL AST 12 L (15-37) U/L ALT 15 (14-59) U/L Alkaline Phosphatase 137 H (46-116) U/L Troponin I High Sens 19.6 (4.0-51.3) pg/mL NT-Pro-B Natriuret Pep 7408.0 H* (<=1800.0) pg/mL Total Protein 7.1 (6.4-8.2) g/dL Albumin 2.1 L (3.4-5.0) g/dL Globulin 5.0 g/dL Albumin/Globulin Ratio 0.4 Discharge Plan Discharge Chief Complaint: Shortness of Breath/Dyspnea Clinical Impression: CHF (congestive heart failure), Hypertensive urgency, Pleural effusion on left Patient Disposition: Admitted As Inpatient Discharge Date/Time: 07/22/25 08:30
[2025-07-22 06:01] LABS: Hematocrit 32.6 % (36.0-48.0); Hemoglobin 10.5 g/dL (12.0-16.0); Immature Granulocytes Abs Auto 0.01 10^3/uL (0.00-0.03); Immature Granulocytes Pct Auto 0.2 % (0.0-0.5); Lymphocytes Absolute Auto 0.9 10^3/uL (1.2-3.8); Mean Corpuscular HGB Conc 32.2 g/dL (29.9-35.2); Mean Corpuscular Hemoglobin 29.7 pg (26.7-34.0); Mean Corpuscular Volume 92.1 fL (81.0-99.0); Platelet Count 200 10^3/uL (150-450); Red Blood Count 3.54 10^6/uL (4.20-5.40); White Blood Count 6.1 10^3/uL (4.0-11.0)
[2025-07-22] MEDS: FUROSEMIDE 40 MG/4 ML VIAL 60 MG IVP (06:15)
[2025-07-22 06:24] LABS: Alanine Aminotransferase 15 U/L (14-59); Albumin Globulin Ratio 0.4; Albumin Level 2.1 g/dL (3.4-5.0); Alkaline Phosphatase 137 U/L (46-116); Anion Gap 12.7; Aspartate Amino Transferase 12 U/L (15-37); Blood Urea Nitrogen 39.0 mg/dL (7.0-18.0); Calcium 8.2 mg/dL (8.5-10.1); Carbon Dioxide 26.1 mmol/L (21.0-32.0); Chloride 109 mmol/L (98-107); Estimated GFR (African America 42 (>=60 mL/min/1.73m^2); Estimated GFR (Non-African Ame 35 (>=60 mL/min/1.73m^2); Globulin 5.0 g/dL; Glucose 150 mg/dL (74-106); Potassium 4.8 mmol/L (3.5-5.1); Sodium 143 mmol/L (136-145); Total Protein 7.1 g/dL (6.4-8.2)
[2025-07-22] MEDS: ALBUTEROL SULFATE 2.5 MG/3 ML VIAL NEB IH (06:32)
[2025-07-22 06:36] LABS: NT Pro B Type Natriuretic Pept 7408.0 pg/mL (<=1800.0)
[2025-07-22] MEDS: HYDRALAZINE HCL 20 MG/ML VIAL 5 MG IVP (06:57)
--- NOTE | 2025-07-22 07:24 | PC.NURSE ---
increased O2 from 2L to 3L NC at this time
--- OUTSIDE RECORDS SUMMARY | 2025-07-22 08:52 | XMS_ITS | CCD ---
Author Organization [facility]iniSy[facility] Care Team Providers Care Rug Cleaner Name Role Phone UNKNOWN, PROVIDER Unavailable Unavailable [...] SHANTEL Alvarado Primary Care Unavailable TENISHA, DR SHATNEL Alvarado Admitting Unavailable TENISHA, DR SHANTEL Alvarado [...] Consulting Unavailable Jaleesa Vanessa Unavailable MD Shantel Stveen Primary Care Provider MD Shantel Steven Other Provider MD Eloina Hussein Attending Provider MD Eloina Hussein Referring Provider Tums, DO Jorge Luis Ross Emergency Provider [phone] MD Shantel Steven Primary Care Provider Tupa, [...] Angle PORRAS, Jorge Luis Ross Emergency Provider [phone] Shantel Steven MD Primary Care Provider Mauri Chavira DO Admit Provider Ange Vergara MD Other Provider Renetta Trivedi MD Other Provider Kavin Escobar DO Attending Provider [phone] Zhang Norwood DO Emergency Provider [phone] Daniele Jane DO Emergency Provider Shantel Cho MD Primary Care Provider [phone] Zhang Norwood DO Emergency Provider [phone] Daniele Jane DO Emergency Provider UnaShantel Marvin MD Primary Care Provider Shantel Steven MD Primary Care Provider Jorge Calix DO Emergency Provider [phone] Jorge Calix DO Emergency Provider Unavailable Shantel Steven MD Primary Care Provider Cherie Rapp MD Attending Provider Cheng Aviles APRN Attending Provider Jorge Calix DO Emergency Provider Unavailable Wandy Alvarez CMA Attending Provider UnavailShantel Morales MD Attending Provider [phone] Shantel Steven MD Primary Care Provider Cheng Aviles APRN Attending Provider Wandy Alvarez CMA Attending Provider UnavailShantel Morales MD Attending Provider Analisa Bryant MD Attending Provider [phone] Monica Stewart MD Attending Provider Shantel Steven MD Primary Care Provider Cheng Aviles APRN Attending Provider Wandy Alvarez CMA Attending Provider Unavaila Jarred Vela DO Attending Provider [phone] Osbaldo Marlow MD Attending Provider [phone] Shantel Steven Admitting Unavailable Shantel Steven Attending [...] Unavailable Shantel Steven MD Primary Care Provider Shantel Steven MD Attending Provider [phone] Provider, Outside Attending Provider Unavailable Allergies Allergy Classification Reported Allergen(s) Allergy Type Date of Onset Reaction(s) Facility (1 source) Iodine (And Iodine Containting Drugs) Drug allergy (disorder) 03-04-20 12 [facility] (20 sources) Shellfish; Translations: [Shellfish] Food allergy (disorder) 03-04-20 12 rash, Eruption of skin (disorder) [facility] (20 sources) Sulfonamides (Antibiotic); Translations: [SULFA (SULFONAMIDE ANTIBIOTICS)] Drug allergy (disorder) 03-04-20 12 Rash [facility] (20 sources) Sulfacetamide Drug Allergy 02-15-20 24 diarrhea [facility] (20 sources) Contrast media; Translations: [contrast media (iodine-based)] Drug allergy 02-15-20 24 Unknown (qualifier value), Rash [facility] (6 sources) Sulfonamides (Antibiotic); Translations: [sulfa drugs] Drug allergy Diarrhea (finding) [facility] (2 sources) Glucosamine Drug Allergy [facility] (2 sources) Iodine (And Iodine Containting Drugs) Drug allergy (disorder) 08-09-20 17 [facility] (11 sources) Contrast media Propensity to adverse reactions 11-18-[address] DYE [employer] Other (20 sources) Iodine; Translations: [IODINE] Drug Allergy 10-30-20 14 Other, Unknown [employer] Other (20 sources) Substance with sulfonamide structure and antibacterial mechanism of action (substance) Drug allergy 10-30-20 14 Unknown [employer] Other (11 sources) Dyes Propensity to adverse reactions Comment:CT Dyes,Dyes,IVP Dyes [facility] [employer] Other (20 sources) Shellfish; Translations: [shellfish derived] Allergy to substance 10-30-20 14 [facility] (20 sources) Iodinated Contrast Media; Translations: [Iodinated Contrast Media] Allergy to substance 02-15-20 24 [facility] (13 sources) metFORMIN; Translations: [METFORMIN HCL] Drug Allergy 07-03-20 24 [facility] (6 sources) Chocolate Flavoring Agent (Non-Screening) Propensity to adverse reactions 01-17-20 [facility] [employer] Work Phone: (12 sources) Shellfish-Derive d Products Drug Intolerance 03-15-20 18 [facility] (7 sources) Chocolate; Translations: [CHOCOLATE FLAVOR] Propensity to adverse reactions 01-17-20 [facility] [employer] Work Phone: (1 source) Sulfacetamide Drug Allergy 07-14-20 [facility] (1 source) Sulfonamides (Antibiotic) Drug allergy (disorder) 07-14-20 [facility] Repository Medications Current Medications Medication Drug [...] ascorbic acid 226 mg / beta carotene 25565 unt / cuprous oxide 0.8 mg / dl-alpha tocopheryl acetate 200 unt / zinc oxide 34.8 mg oral capsule (6 sources) Vitamin C Start: 01-17-2024 Start: 01-17-2024 take 1 capsule by [facility] twice daily Vitamins A,C,N-Dzil-Wjipqk (Preservision Areds) 4,296 mcg-226 mg-90 mg capsule [...] 01-17-2024 End: 06-05-2024 take 1 capsule by [facility] every twenty-four hours Vitamin D3 125 MCG (5000 UT) 1 capsule Orally Once a day Active take 1 capsule by [facility] every twenty-four hours Vitamin D3 25 MCG (1000 UT) 1 capsule Orally Once a day Active cholestyramine resin 4000 mg powder for oral suspension (5 sources) Bile Acid Sequestrant Start: 03-07-2021 Questran 4 g/9 g ora l powder = 1 packet(s), Oral, Daily, # 30 EA, Refills(s) 11, Pharmacy: [id number], 165.1, cm, 03/07/21 13:49:00 EDT, Height/Length Dosing, 121.8, kg, 03/07/21 13:49:00 EDT, Weight Dosing Start Date: 03/07/21 Status: Ordered Start: 03-07-2021 Questran 4 g/9 g oral powder = 1 packet(s), Oral, Daily, # 30 EA, Refills(s) 11, Pharmacy: [id number], 165.1, cm, 03/07/21 13:49:00 EDT, Height/Length [...] Glucose Scanning Reade r ([employer] [place]) misc (17 sources) Start: 09-10-2024 Flash Glucose Scanning [place] ([employer] [place]) misc Active 0 .Route 1 September 10, 2024 8:12am As directed Start: 09-10-2024 Flash Glucose Scanning [place] ([employer]estyle [employer]am[employer] [place]) misc Active 0 .Route September 10, 2024 7:12am As directed Start: 07-16-2024 End: 09-10-2024 Flash Glucose Scanning Reade r ([employer]am[employer] [place]) misc Discontinued 0 .Route July 16, 2024 12:00am September 10, 2024 8:13am As directed Start: 07-16-2024 End: 09-10-2024 Flash Glucose Scanning Reade r ([employer]am[employer] [place]) misc Discontinued 0 .Route July 15, 2024 11:00pm September 10, 2024 7:13am As directed Start: 07-16-2024 Flash Glucose Scanning [place] (Freestyle Fam[employer] [place]) misc Active 0 .Route July 16, 2024 12:00am As directed Flash Glucose Sensor (Freest yle Familia 2 Sensor) kit (20 sources) Start: 04-20-2025 Flash Glucose Sensor (Freestyle Faimlia 2 Sensor) kit Active 0 .ROUTE .COMPLEX [...] capsule Orally Once a day Active Vitamins A,C,R-Bhwr-Ruwnky (Preservision Areds) 4,296 mcg-226 mg-90 mg capsule (18 sources) Start: 01-17-2024 take 1 capsule by mouth twice daily Vitamins A,C,O-Yeib-Evvdxn (Preservision Areds) 4,296 mcg-226 mg-90 mg capsule Active 1 CAP PO Twice daily January 17, 2024 12:00am Start: 01-17-2024 take 1 capsule by mo [facility] twice daily Vitamins A,C,T-Zbhb-Xcysqb (Preservision Areds) 4,296 mcg-226 mg-90 mg capsule [...] Active Start: 07-23-2023 take 1 tablet by [facility] twice daily oxyCODONE-Acetaminophen 5-325 MG 1 table t Orally two times daily for 30 days Jul, Active Start: 07-17-2023 take 1 tablet by [facility] twice daily oxyCODONE-Acetaminophen 5-325 MG 1 table t Orally two times daily for 30 days Jul, Active Start: 05-22-2023 Start: 04-03-2023 take 1 tablet by [facility] twice daily oxyCODONE-Acetaminophen 5-325 MG 1 table t Orally two times daily for 30 days March, Active Start: 02-02-2023 take 1 tablet by [facility] twice daily oxyCODONE-Acetaminophen 5-325 MG 1 table t Orally two times daily for 30 days Jan, Active Start: 11-30-2022 take 1 tablet by [facility] twice daily oxyCODONE-Acetaminophen 5-325 MG 1 table t Orally two times daily for 30 days Nov, Active Start: 07-27-2022 take 1 tablet by [facility] twice daily acetaminophen-oxycodone 325 mg-2.5 mg or al tablet 1 tab(s), Oral, BID, Refill(s) 0 Start Date: 07/27/22 Status: Ordered Start: 06-12-2021 End: 06-19-2021 Start: 06-12-2021 End: 06-19-2021 take 1 tablet by mouth twice daily as needed for pain Oxycodone-Acetaminophen 5-325 mg tablet Discontinued 1 TAB PO Twice daily as needed for Pain June 12, 2021 12:00am June 19, 2021 3:13am [id number] 200 actuat albuter ol 0.09 mg/actuat metered [...] bedtime Orally Once a day Not-Taking amylase 644556 unt / lipase 74951 unt / protease 62994 unt delayed release oral capsule (20 sources) Start: End: Start: 06-11-2021 End: 06-19-2021 Frlfic-Abjdnvev-Hvqrsae (Cre on) 24,000-76,000 -120,000 unit capsule,delayed release(DR/EC) Discontinued 1 - 2 CAP PO 1-2 TIMES DAILY June 11, 2021 12:00am June 19, 2021 3:12am Start: 05-10-2021 Creon 24,000 u nits oral delayed release capsule See Instructions, take 3 caps with each meal and 2 caps with each snack., # 390 caplet(s), Refills(s) 0, Pharmacy: [id number], 165.1, cm, 04/18/21 13:02:00 EDT, Height/Length [...] End: 04-03-2024 take 1 capsule by mo [facility] every twenty-four hours Biotin 5 MG 1 [...] 06-04-2025 Start: 07-27-2022 take 1 capsule by [facility] once daily diltiazem 120 mg oral capsule, extended release 120 mg = 1 cap(s), Oral, Daily, Refills(s) 0 Start Date: 07/27/22 Status: Ordered Start: 06-19-2021 End: 02-09-2025 End: 07-22-2024 take 1 tablet by mouth in the morning dilTIAZem (Cardizem) 120 MG immediate release tablet Take 120 mg by mouth in the morning. 07/22/2024 Discontinued (Duplicate order) take 1 capsule by [facility] every twelve hours dilTIAZem HCl [...] 2024 12:06pm July 16, 2024 10:36am Nystatin 237255 UNIT/GM 1 application Externally Twice a day for 10 days Active Nystatin 889482 UNIT/GM 1 application Externally Twice a day for 10 days Active nystatin 615738 unt/ml / triamcinolone acetonide 1 mg/ml topical [...] June 05, 2024 11:06am swish and swallow [place] 9-Iko-Dvs-Fish Oil (Fish Oil) 1,000 mg (120 mg-180 mg) capsule (19 sources) Start: 01-17-2024 End: 04-03-2024 take 1 capsule by mouth once daily [place] 6-Ify-Szw-Fish Oil (Fish Oil) 1,000 mg (120 mg-180 mg) capsule Discontinued 1 CAP PO Daily January 17, 2024 12:00am April 03, 2024 10:49am Start: 01-17-2024 End: 04-03-2024 take 1 capsule by mouth once daily [place] 0-Dsu-Ooe-Fish Oil (Fish Oil) 1,000 mg (120 mg-180 mg) capsule Discontinued 1 CAP PO Daily January 17, 2024 1:00am April 03, 2024 11:49am Start: 01-17-2024 take 1 capsule by 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 insulin] Onset: 4 Resolved: 4 01-17-2024 Episodic Other aftercare (1 source) Other alf (current) drug therapy; Translations: [OTH [facility] CURRENT DRUG THERAPY] Onset: 3 Episodic Other aftercare (1 source) shelter (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 anticoagulants; Translations: [BOLOGNA MAKER CURRNT USE 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] Onset: 3 Episodic Other [...] 01-16-2023 07-27-2022 Episodic Other aftercare (5 sources) shelter (current) use of insulin; Translations: [[facility] CURRENT USE OF INSULIN] Onset: 01-16-2023 Episodic [...] Interpretation Reference Range Facility Telephoneon 07-15-2025 Telephone [id number] Joe Call 1945 F Date Provider Department Center 07/15/2025 [facility] None Family History Problem Relation Age of Onset Heart disease Mother Heart attack Father Coronary artery disease Other Diabetes Other Polycystic kidney disease Other Family Status - Relation Status Age at Mother Father Sister Brother Other Normal [facility] Glomerular filtration rate ( GFR) estimation in non- AmericanOrdered By: Monica Stewart on 07-01-2025 GFR/1.73 sq M.predicted among non-blacks MDRD (S/P/Bld) [Vol rate/Area] 25 mL/min/{1.73_m2} Low >=60 mL/min/1.73 m 2 [facility] No Panel InformationOrdered By: Monica Stewart on 07-01-2025 18.5 [facility] 36.0 mg/dL High 7.0-18.0 [facility] 8.3 mg/dL Low 8.5-10.1 [facility] 106 mmol/L 98-107 [facility] 31.7 mmol/L 21.0-32.0 [facility] 1.95 mg/dL High 0.55-1.02 [facility] 30 Low >=60 mL/min/1.73 m 2 [facility] 189 mg/dL High 74-106 [facility] 3.6 mmol/L 3.5-5.1 [facility] 143 mmol/L 136-145 [facility] Serum or plasma anion gap de terminationOrdered By: Monica Stewart on 07-01-2025 Anion gap [Moles/Vol] 8.9 mmol/L [facility] Glomerular filtration rate ( GFR) estimation in non- AmericanOrdered By: Monica Stewart on 06-30-2025 GFR/1.73 sq M.predicted among non-blacks MDRD (S/P/Bld) [Vol rate/Area] 28 mL/min/{1.73_m2} Low >=60 mL/min/1.73 m 2 [facility] No Panel InformationOrdered By: Monica Stewart on 06-30-2025 19.5 [facility] 34.0 mg/dL High 7.0-18.0 [facility] 8.2 mg/dL Low 8.5-10.1 [facility] 106 mmol/L 98-107 [facility] 32.9 mmol/L High 21.0-32.0 [facility] 1.74 mg/dL High 0.55-1.02 [facility] 34 Low >=60 mL/min/1.73 m 2 [facility] 50 mg/dL Low 74-106 [facility] 3.2 mmol/L Low 3.5-5.1 [facility] 144 mmol/L 136-145 [facility] Serum or plasma anion gap de terminationOrdered By: Monica Stewart on 06-30-2025 Anion gap [Moles/Vol] 8.3 mmol/L [facility] Basophils Auto (Bld) [#/Vol] Ordered By: Monica Stewart on 06-29-2025 Basophils (Bld) [#/Vol] 0.1 10 3/uL 0.0-0.1 [facility] Basophils/100 WBC Auto (Bld) Ordered By: Monica Stewart on 06-29-2025 Basophils/100 WBC (Bld) 1.6 % 0.2-2.0 [facility] Eosinophils/100 WBC Auto (Bl d)Ordered By: Monica Stewart on 06-29-2025 Eosinophils/100 WBC (Bld) 2.4 % 0.9-7.0 [facility] Erythrocyte distribution wid th Auto (RBC) [Ratio]Ordered By: Monica Stewart on 06-29-2025 Erythrocyte distribution width (RBC) [Ratio] 16.1 % High 11.0-15.0 [facility] Globulin Calc (S) [Mass/Vol] Ordered By: Monica Stewart on 06-29-2025 Globulin (S) [Mass/Vol] 3.8 g/dL [facility] Glomerular filtration rate ( GFR) estimation in non- AmericanOrdered By: Monica Stewart on 06-29-2025 GFR/1.73 sq M.predicted among non-blacks MDRD (S/P/Bld) [Vol rate/Area] 37 mL/min/{1.73_m2} Low >=60 mL/min/1.73 m 2 [facility] Hematocrit Auto (Bld) [Volum e fraction]Ordered By: Monica Stewart on 06-29-2025 Hematocrit (Bld) [Volume fraction] 32.4 % Low 36.0-48.0 [facility] Hemoglobin [Mass/volume] in BloodOrdered By: Monica Stewart on 06-29-2025 Hemoglobin (Bld) [Mass/Vol] 10.2 g/dL Low 12.0-16.0 [facility] Leukocytes [#/volume] correc gali for nucleated erythrocytes in Blood by Automated counOrdered By: Monica Stewart on 06-29-2025 WBC corrected for nucl RBC Auto (Bld) [#/Vol] 5.7 10 3/uL 4.0-11.0 [facility] Lymphocytes Auto (Bld) [#/Vo l]Ordered By: Monica Stewart on 06-29-2025 Lymphocytes (Bld) [#/Vol] 1.2 10 3/uL 1.2-3.8 [facility] Lymphocytes/100 WBC Auto (Bl d)Ordered By: Monica Stewart on 06-29-2025 Lymphocytes/100 WBC (Bld) 20.6 % 20.5-60.0 [facility] MCH Auto (RBC) [Entitic mass ]Ordered By: Monica Stewart on 06-29-2025 MCH (RBC) [Entitic mass] 29.3 pg 26.7-34.0 [facility] MCHC Auto (RBC) [Mass/Vol]Or dered By: Monica Stewart on 06-29-2025 MCHC (RBC) [Mass/Vol] 31.5 g/dL 29.9-35.2 [facility] MCV Auto (RBC) [Entitic vol] Ordered By: Monica Stewart on 06-29-2025 MCV (RBC) [Entitic vol] 93.1 fL 81.0-99.0 [facility] Monocytes Auto (Bld) [#/Vol] Ordered By: Monica Stewart on 06-29-2025 Monocytes (Bld) [#/Vol] 0.6 10 3/uL 0.3-0.8 [facility] Monocytes/100 WBC Auto (Bld) Ordered By: Monica Stewart on 06-29-2025 Monocytes/100 WBC (Bld) 10.1 % 1.7-12.0 [facility] Neutrophils Auto (Bld) [#/Vo l]Ordered By: Monica Stewart on 06-29-2025 Neutrophils (Bld) [#/Vol] 3.7 10 3/uL 1.4-6.5 [facility] Neutrophils/100 WBC Auto (Bl d)Ordered By: Monica Stewart on 06-29-2025 Neutrophils/100 WBC (Bld) 65.1 % 43.0-75.0 [facility] No Panel InformationOrdered By: Monica Stewart on 06-29-2025 0.1 10 3/uL 0.0-0.7 [facility] 0.01 10 3/uL 0.00-0.03 [facility] 0.2 % 0.0-0.5 [facility] 7998.0 pg/mL Critically high <=1800.0 [facility] 2.0 g/dL Low 3.4-5.0 [facility] 109 U/L 46-116 [facility] 17 U/L 14-59 [facility] 16 U/L 15-37 [facility] 22.5 [facility] 31.0 mg/dL High 7.0-18.0 [facility] 8.2 mg/dL Low 8.5-10.1 [facility] 109 mmol/L High 98-107 [facility] 31.7 mmol/L 21.0-32.0 [facility] 1.38 mg/dL High 0.55-1.02 [facility] 45 Low >=60 mL/min/1.73 m 2 [facility] 87 mg/dL 74-106 [facility] 3.7 mmol/L 3.5-5.1 [facility] 144 mmol/L 136-145 [facility] 0.6 mg/dL 0.2-1.0 [facility] 5.8 g/dL Low 6.4-8.2 [facility] Platelet mean volume Auto (B ld) [Entitic vol]Ordered By: Monica Stewart on 06-29-2025 Platelet mean volume (Bld) [Entitic vol] 10.2 fL 9.5-13.5 [facility] Platelets Auto (Bld) [#/Vol] Ordered By: Monica Stewart on 06-29-2025 Platelets (Bld) [#/Vol] 194 10 3/uL 150-450 [facility] RBC Auto (Bld) [#/Vol]Ordere d By: Monica Stewart on 06-29-2025 RBC (Bld) [#/Vol] 3.48 10 6/uL Low 4.20-5.40 [facility] Serum or plasma albumin/glob ulin mass ratioOrdered By: Monica Stewart on 06-29-2025 Albumin/Globulin [Mass ratio] 0.5 {ratio} [facility] Serum or plasma anion gap de terminationOrdered By: Monica Stewart on 06-29-2025 Anion gap [Moles/Vol] 7.0 mmol/L [facility] Basophils Auto (Bld) [#/Vol] Ordered By: Jarred Galan on 06-28-2025 Basophils (Bld) [#/Vol] 0.1 10 3/uL 0.0-0.1 [facility] Basophils/100 WBC Auto (Bld) Ordered By: Jarred Galan on 06-28-2025 Basophils/100 WBC (Bld) 1.2 % 0.2-2.0 [facility] Eosinophils/100 WBC Auto (Bl d)Ordered By: Jarred Galan on 08-17-2025 Eosinophils/100 WBC (Bld) 2.4 % 0.9-7.0 [facility] Erythrocyte distribution wid th Auto (RBC) [Ratio]Ordered By: Jarred Galan on 06-28-2025 Erythrocyte distribution width (RBC) [Ratio] 15.9 % High 11.0-15.0 [facility] Globulin Calc (S) [Mass/Vol] Ordered By: Jarred Galan on 06-28-2025 Globulin (S) [Mass/Vol] 5.1 g/dL [facility] Glomerular filtration rate ( GFR) estimation in non- AmericanOrdered By: Jarred Galan on 06-28-2025 GFR/1.73 sq M.predicted among non-blacks MDRD (S/P/Bld) [Vol rate/Area] 37 mL/min/{1.73_m2} Low >=60 mL/min/1.73 m 2 [facility] Hematocrit Auto (Bld) [Volum e fraction]Ordered By: Jarred Galan on 06-28-2025 Hematocrit (Bld) [Volume fraction] 34.9 % Low 36.0-48.0 [facility] Hemoglobin [Mass/volume] in BloodOrdered By: Jarred Galan on 06-28-2025 Hemoglobin (Bld) [Mass/Vol] 11.2 g/dL Low 12.0-16.0 [facility] Leukocytes [#/volume] correc gali for nucleated erythrocytes in Blood by Automated counOrdered By: Jarred Galan on 06-28-2025 WBC corrected for nucl RBC Auto (Bld) [#/Vol] 7.5 10 3/uL 4.0-11.0 [facility] Lymphocytes Auto (Bld) [#/Vo l]Ordered By: Jarred Galan on 06-28-2025 Lymphocytes (Bld) [#/Vol] 0.9 10 3/uL Low 1.2-3.8 [facility] Lymphocytes/100 WBC Auto (Bl d)Ordered By: Jarred Galan on 06-28-2025 Lymphocytes/100 WBC (Bld) 12.6 % Low 20.5-60.0 [facility] MCH Auto (RBC) [Entitic mass ]Ordered By: Jarred Galan on 06-28-2025 MCH (RBC) [Entitic mass] 29.5 pg 26.7-34.0 [facility] MCHC Auto (RBC) [Mass/Vol]Or dered By: Jarred Galan on 06-28-2025 MCHC (RBC) [Mass/Vol] 32.1 g/dL 29.9-35.2 [facility] MCV Auto (RBC) [Entitic vol] Ordered By: Jarred Galan on 06-28-2025 MCV (RBC) [Entitic vol] 91.8 fL 81.0-99.0 [facility] Monocytes Auto (Bld) [#/Vol] Ordered By: Jarred Galan on 06-28-2025 Monocytes (Bld) [#/Vol] 0.6 10 3/uL 0.3-0.8 [facility] Monocytes/100 WBC Auto (Bld) Ordered By: Jarred Galan on 06-28-2025 Monocytes/100 WBC (Bld) 8.1 % 1.7-12.0 [facility] Neutrophils Auto (Bld) [#/Vo l]Ordered By: Jarred Galan on 06-28-2025 Neutrophils (Bld) [#/Vol] 5.6 10 3/uL 1.4-6.5 [facility] Neutrophils/100 WBC Auto (Bl d)Ordered By: Jarred Galan on 06-28-2025 Neutrophils/100 WBC (Bld) 75.6 % High 43.0-75.0 [facility] No Panel InformationOrdered By: Jarred Galan on 06-28-2025 NO [facility] SEEN #/LPF Abnormal NONE SEEN [facility] None Seen #/HPF NONE SEEN [facility] TRACE #/HPF Abnormal NONE SEEN [facility] Negative NEGATIVE [facility] SMALL Abnormal NEGATIVE [facility] CLEAR CLEAR [facility] LT. YELLOW YELLOW [facility] 100 mg/dL Abnormal NEGATIVE [facility] RARE [facility] TRACE Abnormal NONE SEEN [facility] 7.0 5.0-9.0 [facility] >=300 mg/dL Abnormal NEG/TRACE [facility] 5-10 #/HPF Abnormal 0-2 [facility] 1.020 1.005-1.025 [facility] FEW #/LPF Abnormal NONE/RARE [facility] 0.2 EU/dL 0.2-1.0 [facility] 0.2 10 3/uL 0.0-0.7 [facility] 0.01 10 3/uL 0.00-0.03 [facility] 0.1 % 0.0-0.5 [facility] 7158.0 pg/mL Critically high <=1800.0 [facility] 22.6 pg/mL 4.0-51.3 [facility] 2.2 g/dL Low 3.4-5.0 [facility] 104 U/L 46-116 [facility] 16 U/L 14-59 [facility] 21 U/L 15-37 [facility] 22.6 [facility] 31.0 mg/dL High 7.0-18.0 [facility] 8.4 mg/dL Low 8.5-10.1 [facility] 106 mmol/L 98-107 [facility] 30.7 mmol/L 21.0-32.0 [facility] 1.37 mg/dL High 0.55-1.02 [facility] 45 Low >=60 mL/min/1.73 m 2 [facility] 117 mg/dL High 74-106 [facility] 4.2 mmol/L 3.5-5.1 [facility] 143 mmol/L 136-145 [facility] 0.5 mg/dL 0.2-1.0 [facility] 7.3 g/dL 6.4-8.2 [facility] Platelet mean volume Auto (B ld) [Entitic vol]Ordered By: Jarred Galan on 06-28-2025 Platelet mean volume (Bld) [Entitic vol] 10.9 fL 9.5-13.5 [facility] Platelets Auto (Bld) [#/Vol] Ordered By: Jarred Galan on 06-28-2025 Platelets (Bld) [#/Vol] 158 10 3/uL 150-450 [facility] RBC Auto (Bld) [#/Vol]Ordere d By: Jarred Galan on 06-28-2025 RBC (Bld) [#/Vol] 3.80 10 6/uL Low 4.20-5.40 [facility] Serum or plasma albumin/glob ulin mass ratioOrdered By: Jarred Galan on 06-28-2025 Albumin/Globulin [Mass ratio] 0.4 {ratio} [facility] Serum or plasma anion gap de terminationOrdered By: Jarred Galan on 06-28-2025 Anion gap [Moles/Vol] 10.5 mmol/L [facility] Erythrocyte distribution wid th Auto (RBC) [Ratio]Ordered By: Outside Provider on 06-19-2025 Erythrocyte distribution width (RBC) [Ratio] 15.8 % High 11.0-15.0 [facility] Glomerular filtration rate ( GFR) estimation in non- AmericanOrdered By: Outside Provider on 06-19-2025 GFR/1.73 sq M.predicted among non-blacks MDRD (S/P/Bld) [Vol rate/Area] 27 mL/min/{1.73_m2} Low >=60 mL/min/1.73 m 2 [facility] Hematocrit Auto (Bld) [Volum e fraction]Ordered By: Outside Provider on 06-19-2025 Hematocrit (Bld) [Volume fraction] 33.5 % Low 36.0-48.0 [facility] Hemoglobin [Mass/volume] in BloodOrdered By: Outside Provider on 06-19-2025 Hemoglobin (Bld) [Mass/Vol] 11.0 g/dL Low 12.0-16.0 [facility] Leukocytes [#/volume] correc gali for nucleated erythrocytes in Blood by Automated counOrdered By: Outside Provider on 06-19-2025 WBC corrected for nucl RBC Auto (Bld) [#/Vol] 6.5 10 3/uL 4.0-11.0 [facility] MCH Auto (RBC) [Entitic mass ]Ordered By: Outside Provider on 06-19-2025 MCH (RBC) [Entitic mass] 30.1 pg 26.7-34.0 [facility] MCHC Auto (RBC) [Mass/Vol]Or dered By: Outside Provider on 06-19-2025 MCHC (RBC) [Mass/Vol] 32.8 g/dL 29.9-35.2 [facility] MCV Auto (RBC) [Entitic vol] Ordered By: Outside Provider on 06-19-2025 MCV (RBC) [Entitic vol] 91.5 fL 81.0-99.0 [facility] No Panel InformationOrdered By: Outside Provider on 06-19-2025 9659.0 pg/mL Critically high <=1800.0 [facility] 29.7 pg/mL 4.0-51.3 [facility] 1.5 mg/dL Low 1.8-2.4 [facility] 17.7 [facility] 32.0 mg/dL High 7.0-18.0 [facility] 8.5 mg/dL 8.5-10.1 [facility] 106 mmol/L 98-107 [facility] 33.4 mmol/L High 21.0-32.0 [facility] 1.81 mg/dL High 0.55-1.02 [facility] 33 Low >=60 mL/min/1.73 m 2 [facility] 134 mg/dL High 74-106 [facility] 3.3 mmol/L Low 3.5-5.1 [facility] 145 mmol/L 136-145 [facility] Platelet mean volume Auto (B ld) [Entitic vol]Ordered By: Outside Provider on 06-19-2025 Platelet mean volume (Bld) [Entitic vol] 10.2 fL 9.5-13.5 [facility] Platelets Auto (Bld) [#/Vol] Ordered By: Outside Provider on 06-19-2025 Platelets (Bld) [#/Vol] 244 10 3/uL 150-450 [facility] RBC Auto (Bld) [#/Vol]Ordere d By: Outside Provider on 06-19-2025 RBC (Bld) [#/Vol] 3.66 10 6/uL Low 4.20-5.40 [facility] Serum or plasma anion gap de terminationOrdered By: Outside Provider on 06-19-2025 Anion gap [Moles/Vol] 8.9 mmol/L [facility] Alanine aminotransferase [En zymatic activity/volume] in Serum or PlasmaOrdered By: Shantel Steven on 06-15-2025 ALT [Catalytic activity/Vol] 11 U/L 7-52 [facility] Comment on above: Performed By: #### A [facility] eA #### [facility] [address] [place] [address] Albumin [Mass/volume] in Ser um or Plasma by Bromocresol green (BCG) dye binding methoOrdered By: Shantel Steven on 06-15-2025 Albumin BCG dye [Mass/Vol] 2.8 g/dL Low 3.5-5.7 [facility] Alkaline phosphatase [Enzyma tic activity/volume] in Serum or PlasmaOrdered By: Shantel Steven on 06-15-2025 ALP [Catalytic activity/Vol] 103 U/L 34-104 [facility] Comment on above: Result Comment: PERF ORMED BY: [place] [address] PATHOLOGIST AUTO PHONE INSTALLER SIMON LINTON M.D. Performed By: #### A [facility] eA #### [address] Aspartate aminotransferase [ Enzymatic activity/volume] in Serum or PlasmaOrdered By: Shantel Steven on 06-15-2025 AST [Catalytic activity/Vol] 13 U/L 13-39 [facility] Comment on above: Performed By: #### A [facility] eA #### [place] [address] [place] Bilirubin.total [Mass/volume ] in Serum or PlasmaOrdered By: Shantel Steven on 06-15-2025 Bilirubin [Mass/Vol] 0.5 mg/dL 0.3-1.0 [facility] Comment on above: Performed By: #### [facility] e[place] #### [place] [address] [place] Calcium [Mass/volume] in Ser um or PlasmaOrdered By: Shantel Steven on 06-15-2025 Calcium [Mass/Vol] 8.3 mg/dL Low 8.6-10.3 [facility] Comment on above: Performed By: #### A [facility] eA #### [facility] [address] [place] [address] [place] Carbon dioxide, total [Moles /volume] in Serum or PlasmaOrdered By: Shantel Steven on 06-15-2025 CO2 [Moles/Vol] 31.9 mmol/L High 21.0-31.0 [facility] Comment on above: Performed By: #### A [facility] eA #### [facility] [address] [place] [address] [place] Chloride [Moles/volume] in S oziel or PlasmaOrdered By: Shantel Steven on 06-15-2025 Chloride [Moles/Vol] 103 mmol/L 98-107 [facility] Comment on above: Performed By: #### A [facility] eA #### [address] Comprehensive Metabolic Pane daniele 06-15-2025 Albumin [Mass/Vol] 2.8 g/dL Low 3.5-5.7 [facility] Comment on above: Performed By: #### [facility] e[place] #### [place] [address] [place] GFR/1.73 sq M.predicted MDRD (S/P/Bld) [Vol rate/Area] 38.841 mL/min/{1.73_m2} Normal [facility] Comment on above: Performed By: #### A [facility] e[place] #### [place] [address] [place] Creatinine [Mass/volume] in Serum or PlasmaOrdered By: Shantel Steven on 06-15-2025 Creatinine [Mass/Vol] 1.39 mg/dL High 0.60-1.20 [facility] Comment on above: Performed By: #### [facility] e[place] #### [place] [address] [place] Glucose [Mass/volume] in Ser um or PlasmaOrdered By: Shantel Steven on 06-15-2025 Glucose [Mass/Vol] 235 mg/dL High 70-100 [facility] Comment on above: Result Comment: [place] Glucose Reference Range is dependent on time and content of last meal. Glucose of more than 200 mg/dL in a nonstressed, ambulatory subject supports the diagnosis of Diabetes Mellitus. ADA recommended reference range Performed By: #### A [facility] eA #### [address] No Panel InformationOrdered By: Shantel Steven on 06-15-2025 38.841 mL/Min [facility] N/A [facility] Potassium [Moles/volume] in Serum or PlasmaOrdered By: Shantel Steven on 06-15-2025 Potassium [Moles/Vol] 3.7 mmol/L 3.5-5.1 [facility] Comment on above: Performed By: #### A [facility] eA #### [address] Protein [Mass/volume] in Ser um or PlasmaOrdered By: Shantel Steven on 06-15-2025 Protein [Mass/Vol] 6.3 g/dL Low 6.4-8.9 [facility] Comment on above: Performed By: #### A [facility] eA #### [address] Serum globulin measurement b y calculation (mass/volume)Ordered By: Shantel Steven on 06-15-2025 Globulin (S) [Mass/Vol] 3.5 g/dL [facility] Comment on above: Performed By: #### [facility] eA #### [address] Serum or plasma albumin/glob ulin mass ratioOrdered By: Shantel Steven on 06-15-2025 Albumin/Globulin [Mass ratio] 0.8 {ratio} [facility] Comment on above: Performed By: #### A [facility] eA #### [address] Serum or plasma anion gap de terminationOrdered By: Shantel Steven on 06-15-2025 Anion gap [Moles/Vol] 9.8 mmol/L 6.0-15.0 [facility] Comment on above: Performed By: #### [facility] eA #### [facility] [address] Sodium [Moles/volume] in Ser um or PlasmaOrdered By: Shantel Steven on 06-15-2025 Sodium [Moles/Vol] 141 mmol/L 136-145 [facility] Comment on above: Performed By: #### A [facility] eA #### [facility] [address] Urea nitrogen [Mass/volume] in Serum or PlasmaOrdered By: Shantel Steven on 06-15-2025 Urea nitrogen [Mass/Vol] 31 mg/dL High 7-25 [facility] Comment on above: Performed By: #### A [facility] eA #### [facility] [address] Basophils Auto (Bld) [#/Vol] Ordered By: Osbaldo Marlow on 06-10-2025 Basophils (Bld) [#/Vol] 0.1 10 3/uL 0.0-0.1 [facility] Basophils/100 WBC Auto (Bld) Ordered By: Osbaldo Marlow on 06-10-2025 Basophils/100 WBC (Bld) 1.1 % 0.2-2.0 [facility] Eosinophils/100 WBC Auto (Bl d)Ordered By: Osbaldo Marlow on 06-10-2025 Eosinophils/100 WBC (Bld) 2.1 % 0.9-7.0 [facility] Erythrocyte distribution wid th Auto (RBC) [Ratio]Ordered By: Osbaldo Marlow on 06-10-2025 Erythrocyte distribution width (RBC) [Ratio] 16.4 % High 11.0-15.0 [facility] Estimated glomerular filtrat ion rate (GFR) non- AmericanOrdered By: Osbaldo Marlow on 06-10-2025 GFR/1.73 sq M.predicted among non-blacks MDRD (S/P/Bld) [Vol rate/Area] 27 mL/min/{1.73_m2} Low >=60 mL/min/1.73 m 2 [facility] Globulin Calc (S) [Mass/Vol] Ordered By: Osbaldo Marlow on 06-10-2025 Globulin (S) [Mass/Vol] 4.6 g/dL [facility] Hematocrit Auto (Bld) [Volum e fraction]Ordered By: Osbaldo Marlow on 06-10-2025 Hematocrit (Bld) [Volume fraction] 31.3 % Low 36.0-48.0 [facility] Hemoglobin [Mass/volume] in BloodOrdered By: Osbaldo Marlow on 06-10-2025 Hemoglobin (Bld) [Mass/Vol] 10.1 g/dL Low 12.0-16.0 [facility] Leukocytes [#/volume] correc gali for nucleated erythrocytes in Blood by Automated counOrdered By: Osbaldo Marlow on 06-10-2025 WBC corrected for nucl RBC Auto (Bld) [#/Vol] 9.0 10 3/uL 4.0-11.0 [facility] Lymphocytes Auto (Bld) [#/Vo l]Ordered By: Osbaldo Marlow on 06-10-2025 Lymphocytes (Bld) [#/Vol] 1.4 10 3/uL 1.2-3.8 [facility] Lymphocytes/100 WBC Auto (Bl d)Ordered By: Osbaldo Marlow on 06-10-2025 Lymphocytes/100 WBC (Bld) 15.0 % Low 20.5-60.0 [facility] MCH Auto (RBC) [Entitic mass ]Ordered By: Osbaldo Marlow on 06-10-2025 MCH (RBC) [Entitic mass] 29.6 pg 26.7-34.0 [facility] MCHC Auto (RBC) [Mass/Vol]Or dered By: Osbaldo Marlow on 06-10-2025 MCHC (RBC) [Mass/Vol] 32.3 g/dL 29.9-35.2 [facility] MCV Auto (RBC) [Entitic vol] Ordered By: Osbaldo Marlow on 06-10-2025 MCV (RBC) [Entitic vol] 91.8 fL 81.0-99.0 [facility] Monocytes Auto (Bld) [#/Vol] Ordered By: Osbaldo Marlow on 06-10-2025 Monocytes (Bld) [#/Vol] 0.5 10 3/uL 0.3-0.8 [facility] Monocytes/100 WBC Auto (Bld) Ordered By: Drewrudy Marlow on 06-10-2025 Monocytes/100 WBC (Bld) 5.6 % 1.7-12.0 [facility] Neutrophils Auto (Bld) [#/Vo l]Ordered By: Drewrudy Marlow on 06-10-2025 Neutrophils (Bld) [#/Vol] 6.8 10 3/uL High 1.4-6.5 [facility] Neutrophils/100 WBC Auto (Bl d)Ordered By: Osbaldo Marlow on 06-10-2025 Neutrophils/100 WBC (Bld) 75.9 % High 43.0-75.0 [facility] No Panel InformationOrdered By: Osbaldo Marlow on 06-10-2025 2.0 mg/dL 1.8-2.4 [facility] 4.4 mg/dL 2.6-4.7 [facility] 1.7 g/dL Low 3.4-5.0 [facility] 0.2 10 3/uL 0.0-0.7 [facility] 96 U/L 46-116 [facility] 14 U/L 14-59 [facility] 15 U/L 15-37 [facility] 16.6 [facility] 0.03 10 3/uL 0.00-0.03 [facility] 30.0 mg/dL High 7.0-18.0 [facility] 0.3 % 0.0-0.5 [facility] 8.2 mg/dL Low 8.5-10.1 [facility] 108 mmol/L High 98-107 [facility] 30.5 mmol/L 21.0-32.0 [facility] 1.81 mg/dL High 0.55-1.02 [facility] 33 Low >=60 mL/min/1.73 m 2 [facility] 117 mg/dL High 74-106 [facility] 3.3 mmol/L Low 3.5-5.1 [facility] 146 mmol/L High 136-145 [facility] 0.4 mg/dL 0.2-1.0 [facility] 6.3 g/dL Low 6.4-8.2 [facility] Platelet mean volume Auto (B ld) [Entitic vol]Ordered By: Osbaldo Marlow on 06-10-2025 Platelet mean volume (Bld) [Entitic vol] 10.0 fL 9.5-13.5 [facility] Platelets Auto (Bld) [#/Vol] Ordered By: Osbaldo Marlow on 06-10-2025 Platelets (Bld) [#/Vol] 248 10 3/uL 150-450 [facility] RBC Auto (Bld) [#/Vol]Ordere d By: Osbaldo Marlow on 06-10-2025 RBC (Bld) [#/Vol] 3.41 10 6/uL Low 4.20-5.40 [facility] Serum or plasma albumin/glob ulin mass ratioOrdered By: Osbaldo Marlow on 06-10-2025 Albumin/Globulin [Mass ratio] 0.4 {ratio} [facility] Serum or plasma anion gap de terminationOrdered By: Osbaldo Marlow on 06-10-2025 Anion gap [Moles/Vol] 10.8 mmol/L [facility] Basophils Auto (Bld) [#/Vol] Ordered By: Osbaldo Marlow on 06-09-2025 Basophils (Bld) [#/Vol] 0.1 10 3/uL 0.0-0.1 [facility] Basophils/100 WBC Auto (Bld) Ordered By: Osbaldo Marlow on 06-09-2025 Basophils/100 WBC (Bld) 1.1 % 0.2-2.0 [facility] Eosinophils/100 WBC Auto (Bl d)Ordered By: Osbaldo Marlow on 06-09-2025 Eosinophils/100 WBC (Bld) 1.8 % 0.9-7.0 [facility] Erythrocyte distribution wid th Auto (RBC) [Ratio]Ordered By: Osbaldo Marlow on 06-09-2025 Erythrocyte distribution width (RBC) [Ratio] 15.9 % High 11.0-15.0 [facility] Estimated glomerular filtrat ion rate (GFR) non- AmericanOrdered By: Cheng Aviles on 06-09-2025 GFR/1.73 sq M.predicted among non-blacks MDRD (S/P/Bld) [Vol rate/Area] 33 mL/min/{1.73_m2} Low >=60 mL/min/1.73 m 2 [facility] Globulin Calc (S) [Mass/Vol] Ordered By: Cheng Aviles on 06-09-2025 Globulin (S) [Mass/Vol] 4.9 g/dL [facility] Hematocrit Auto (Bld) [Volum e fraction]Ordered By: Osbaldo Marlow on 06-09-2025 Hematocrit (Bld) [Volume fraction] 31.8 % Low 36.0-48.0 [facility] Hemoglobin [Mass/volume] in BloodOrdered By: Osbaldo Marlow on 06-09-2025 Hemoglobin (Bld) [Mass/Vol] 10.4 g/dL Low 12.0-16.0 [facility] Leukocytes [#/volume] correc gali for nucleated erythrocytes in Blood by Automated counOrdered By: Osbaldo Marlow on 06-09-2025 WBC corrected for nucl RBC Auto (Bld) [#/Vol] 8.3 10 3/uL 4.0-11.0 [facility] Lymphocytes Auto (Bld) [#/Vo l]Ordered By: Osbaldo Marlow on 06-09-2025 Lymphocytes (Bld) [#/Vol] 1.4 10 3/uL 1.2-3.8 [facility] Lymphocytes/100 WBC Auto (Bl d)Ordered By: Osbaldo Marlow on 06-09-2025 Lymphocytes/100 WBC (Bld) 17.3 % Low 20.5-60.0 [facility] MCH Auto (RBC) [Entitic mass ]Ordered By: Osbaldo Marlow on 06-09-2025 MCH (RBC) [Entitic mass] 29.3 pg 26.7-34.0 [facility] MCHC Auto (RBC) [Mass/Vol]Or dered By: Osbaldo Marlow on 06-09-2025 MCHC (RBC) [Mass/Vol] 32.7 g/dL 29.9-35.2 [facility] MCV Auto (RBC) [Entitic vol] Ordered By: Osblado Marlow on 06-09-2025 MCV (RBC) [Entitic vol] 89.6 fL 81.0-99.0 [facility] Monocytes Auto (Bld) [#/Vol] Ordered By: Osbaldo Marlow on 06-09-2025 Monocytes (Bld) [#/Vol] 0.5 10 3/uL 0.3-0.8 [facility] Monocytes/100 WBC Auto (Bld) Ordered By: Osbaldo Marlow on 06-09-2025 Monocytes/100 WBC (Bld) 6.5 % 1.7-12.0 [facility] Neutrophils Auto (Bld) [#/Vo l]Ordered By: Osbaldo Marlow on 06-09-2025 Neutrophils (Bld) [#/Vol] 6.1 10 3/uL 1.4-6.5 [facility] Neutrophils/100 WBC Auto (Bl d)Ordered By: Osbaldo Marlow on 06-09-2025 Neutrophils/100 WBC (Bld) 72.9 % 43.0-75.0 [facility] No Panel InformationOrdered By: Osbaldo Marlow on 06-09-2025 1.3 mg/dL Low 1.8-2.4 [facility] 3.8 mg/dL 2.6-4.7 [facility] 0.2 10 3/uL 0.0-0.7 [facility] 0.03 10 3/uL 0.00-0.03 [facility] 0.4 % 0.0-0.5 [facility] No Panel InformationOrdered By: Cheng Aviles on 06-09-2025 1.7 g/dL Low 3.4-5.0 [facility] 104 U/L 46-116 [facility] 14 U/L 14-59 [facility] 13 U/L Low 15-37 [facility] 18.3 [facility] 28.0 mg/dL High 7.0-18.0 [facility] 8.1 mg/dL Low 8.5-10.1 [facility] 106 mmol/L 98-107 [facility] 29.8 mmol/L 21.0-32.0 [facility] 1.53 mg/dL High 0.55-1.02 [facility] 40 Low >=60 mL/min/1.73 m 2 [facility] 79 mg/dL 74-106 [facility] 2.7 mmol/L Critically low 3.5-5.1 [facility] 146 mmol/L High 136-145 [facility] 0.4 mg/dL 0.2-1.0 [facility] 6.6 g/dL 6.4-8.2 [facility] Platelet mean volume Auto (B ld) [Entitic vol]Ordered By: Osbaldo Marlow on 06-09-2025 Platelet mean volume (Bld) [Entitic vol] 11.2 fL 9.5-13.5 [facility] Platelets Auto (Bld) [#/Vol] Ordered By: Osbaldo Marlow on 06-09-2025 Platelets (Bld) [#/Vol] 222 10 3/uL 150-450 [facility] RBC Auto (Bld) [#/Vol]Ordere d By: Osbaldo Marlow on 06-09-2025 RBC (Bld) [#/Vol] 3.55 10 6/uL Low 4.20-5.40 [facility] Serum or plasma albumin/glob ulin mass ratioOrdered By: Cheng Aviles on 06-09-2025 Albumin/Globulin [Mass ratio] 0.3 {ratio} [facility] Serum or plasma anion gap de terminationOrdered By: Cheng Aviles on 06-09-2025 Anion gap [Moles/Vol] 12.9 mmol/L [facility] Basophils Auto (Bld) [#/Vol] Ordered By: Jarred Galan on 06-08-2025 Basophils (Bld) [#/Vol] 0.1 10 3/uL 0.0-0.1 [facility] Basophils/100 WBC Auto (Bld) Ordered By: Jarred Galan on 06-08-2025 Basophils/100 WBC (Bld) 1.2 % 0.2-2.0 [facility] Eosinophils/100 WBC Auto (Bl d)Ordered By: Jarred Galan on 06-08-2025 Eosinophils/100 WBC (Bld) 1.9 % 0.9-7.0 [facility] Erythrocyte distribution wid th Auto (RBC) [Ratio]Ordered By: Jarred Galan on 06-08-2025 Erythrocyte distribution width (RBC) [Ratio] 16.1 % High 11.0-15.0 [facility] Estimated glomerular filtrat ion rate (GFR) non- AmericanOrdered By: Jarred Galan on 06-08-2025 GFR/1.73 sq M.predicted among non-blacks MDRD (S/P/Bld) [Vol rate/Area] 29 mL/min/{1.73_m2} Low >=60 mL/min/1.73 m 2 [facility] Hematocrit Auto (Bld) [Volum e fraction]Ordered By: Jarred Galan on 06-08-2025 Hematocrit (Bld) [Volume fraction] 35.3 % Low 36.0-48.0 [facility] Hemoglobin [Mass/volume] in BloodOrdered By: Jarred Galan on 06-08-2025 Hemoglobin (Bld) [Mass/Vol] 11.4 g/dL Low 12.0-16.0 [facility] Leukocytes [#/volume] correc gali for nucleated erythrocytes in Blood by Automated counOrdered By: Jarred Galan on 06-08-2025 WBC corrected for nucl RBC Auto (Bld) [#/Vol] 8.5 10 3/uL 4.0-11.0 [facility] Lymphocytes Auto (Bld) [#/Vo l]Ordered By: Jarred Galan on 06-08-2025 Lymphocytes (Bld) [#/Vol] 1.1 10 3/uL Low 1.2-3.8 [facility] Lymphocytes/100 WBC Auto (Bl d)Ordered By: Jarred Galan on 06-08-2025 Lymphocytes/100 WBC (Bld) 13.3 % Low 20.5-60.0 [facility] MCH Auto (RBC) [Entitic mass ]Ordered By: Jarred Galan on 06-08-2025 MCH (RBC) [Entitic mass] 29.2 pg 26.7-34.0 [facility] MCHC Auto (RBC) [Mass/Vol]Or dered By: Jarred Galan on 06-08-2025 MCHC (RBC) [Mass/Vol] 32.3 g/dL 29.9-35.2 [facility] MCV Auto (RBC) [Entitic vol] Ordered By: Jarred Galan on 06-08-2025 MCV (RBC) [Entitic vol] 90.3 fL 81.0-99.0 [facility] Monocytes Auto (Bld) [#/Vol] Ordered By: Jarred Galan on 06-08-2025 Monocytes (Bld) [#/Vol] 0.4 10 3/uL 0.3-0.8 [facility] Monocytes/100 WBC Auto (Bld) Ordered By: Jarred Galan on 06-08-2025 Monocytes/100 WBC (Bld) 5.2 % 1.7-12.0 [facility] Neutrophils Auto (Bld) [#/Vo l]Ordered By: Jarred Galan on 06-08-2025 Neutrophils (Bld) [#/Vol] 6.6 10 3/uL High 1.4-6.5 [facility] Neutrophils/100 WBC Auto (Bl d)Ordered By: Jarred Galan on 06-08-2025 Neutrophils/100 WBC (Bld) 78.2 % High 43.0-75.0 [facility] No Panel InformationOrdered By: Jarred Galan on 06-08-2025 SEEN #/LPF Abnormal NONE SEEN [facility] None Seen #/HPF None Seen [facility] TRACE #/HPF Abnormal NONE SEEN [facility] MODERATE [facility] CLEAR CLEAR [facility] LT. YELLOW YELLOW [facility] 250 mg/dL Abnormal NEGATIVE [facility] SMALL Abnormal NONE SEEN [facility] 6.5 5.0-9.0 [facility] >=300 mg/dL Abnormal NEG/TRACE [facility] 0-2 #/HPF 0-2 [facility] 1.020 1.005-1.025 [facility] FEW #/LPF Abnormal NONE/RARE [facility] RARE #/LPF Abnormal NONE SEEN [facility] 0.2 EU/dL 0.2-1.0 [facility] 2-5 #/HPF Abnormal NONE SEEN [facility] Negative NEGATIVE [facility] 75515.0 pg/mL Critically high <=1800.0 [facility] 26.7 pg/mL 4.0-51.3 [facility] 0.7 mmol/L 0.4-2.0 [facility] 17.8 [facility] 30.0 mg/dL High 7.0-18.0 [facility] 0.2 10 3/uL 0.0-0.7 [facility] 8.7 mg/dL 8.5-10.1 [facility] 105 mmol/L 98-107 [facility] 30.5 mmol/L 21.0-32.0 [facility] 1.69 mg/dL High 0.55-1.02 [facility] 0.02 10 3/uL 0.00-0.03 [facility] 35 Low >=60 mL/min/1.73 m 2 [facility] 0.2 % 0.0-0.5 [facility] 177 mg/dL High 74-106 [facility] 3.2 mmol/L Low 3.5-5.1 [facility] 144 mmol/L 136-145 [facility] Platelet mean volume Auto (B ld) [Entitic vol]Ordered By: Jarred Galan on 06-08-2025 Platelet mean volume (Bld) [Entitic vol] 9.8 fL 9.5-13.5 [facility] Platelets Auto (Bld) [#/Vol] Ordered By: Jarred Galan on 06-08-2025 Platelets (Bld) [#/Vol] 291 10 3/uL 150-450 [facility] RBC Auto (Bld) [#/Vol]Ordere d By: Jarred Galan on 06-08-2025 RBC (Bld) [#/Vol] 3.91 10 6/uL Low 4.20-5.40 [facility] Serum or plasma anion gap de terminationOrdered By: Jarred Galan on 06-08-2025 Anion gap [Moles/Vol] 11.7 mmol/L [facility] Urine Cultureon 06-02-2025 Bacteria identified Cx Nom (U) 50,000 colonies/ml mixed bacterial skin contaminants 2 Days PERFORMED BY: [facility] [address] [place] [address] PATHOLOGIST AUTO PHONE INSTALLER SIMON LINTON M.D. Normal [facility] Comment on above: Performed By: #### M Bela, BMP #### [address] Urine cultureOrdered By: Alessia Steven on 06-02-2025 Bacteria identified Cx Nom (U) 2 Days [facility] Estimated glomerular filtrat ion rate (GFR) non- AmericanOrdered By: Monica Stewart on 05-31-2025 GFR/1.73 sq M.predicted among non-blacks MDRD (S/P/Bld) [Vol rate/Area] 31 mL/min/{1.73_m2} Low >=60 mL/min/1.73 m 2 [facility] No Panel InformationOrdered By: Monica Stewart on 05-31-2025 31.3 [facility] 50.0 mg/dL High 7.0-18.0 [facility] 8.2 mg/dL Low 8.5-10.1 [facility] 106 mmol/L 98-107 [facility] 26.2 mmol/L 21.0-32.0 [facility] 1.60 mg/dL High 0.55-1.02 [facility] 38 Low >=60 mL/min/1.73 m 2 [facility] 103 mg/dL 74-106 [facility] 3.8 mmol/L 3.5-5.1 [facility] 142 mmol/L 136-145 [facility] Serum or plasma anion gap de terminationOrdered By: Monica Stewart on 05-31-2025 Anion gap [Moles/Vol] 13.6 mmol/L [facility] Erythrocyte distribution wid th Auto (RBC) [Ratio]Ordered By: Monica Stewart on 05-30-2025 Erythrocyte distribution width (RBC) [Ratio] 17.2 % High 11.0-15.0 [facility] Estimated glomerular filtrat ion rate (GFR) non- AmericanOrdered By: Monica Stewart on 05-30-2025 GFR/1.73 sq M.predicted among non-blacks MDRD (S/P/Bld) [Vol rate/Area] 28 mL/min/{1.73_m2} Low >=60 mL/min/1.73 m 2 [facility] Hematocrit Auto (Bld) [Volum e fraction]Ordered By: Monica Stewart on 05-30-2025 Hematocrit (Bld) [Volume fraction] 32.9 % Low 36.0-48.0 [facility] Hemoglobin [Mass/volume] in BloodOrdered By: Monica Stewart on 05-30-2025 Hemoglobin (Bld) [Mass/Vol] 10.6 g/dL Low 12.0-16.0 [facility] Leukocytes [#/volume] correc gali for nucleated erythrocytes in Blood by Automated counOrdered By: Monica Stewart on 05-30-2025 WBC corrected for nucl RBC Auto (Bld) [#/Vol] 18.7 10 3/uL High 4.0-11.0 [facility] MCH Auto (RBC) [Entitic mass ]Ordered By: Monica Stewart on 05-30-2025 MCH (RBC) [Entitic mass] 29.7 pg 26.7-34.0 [facility] MCHC Auto (RBC) [Mass/Vol]Or dered By: Monica Stewart on 05-30-2025 MCHC (RBC) [Mass/Vol] 32.2 g/dL 29.9-35.2 [facility] MCV Auto (RBC) [Entitic vol] Ordered By: Monica Stewart on 05-30-2025 MCV (RBC) [Entitic vol] 92.2 fL 81.0-99.0 [facility] No Panel InformationOrdered By: Monica Stewart on 05-30-2025 1.8 mg/dL 1.8-2.4 [facility] 26.4 [facility] 47.0 mg/dL High 7.0-18.0 [facility] 8.5 mg/dL 8.5-10.1 [facility] 106 mmol/L 98-107 [facility] 27.5 mmol/L 21.0-32.0 [facility] 1.78 mg/dL High 0.55-1.02 [facility] 33 Low >=60 mL/min/1.73 m 2 [facility] 97 mg/dL 74-106 [facility] 4.0 mmol/L 3.5-5.1 [facility] 143 mmol/L 136-145 [facility] Platelet mean volume Auto (B ld) [Entitic vol]Ordered By: Monica Stewart on 05-30-2025 Platelet mean volume (Bld) [Entitic vol] 10.3 fL 9.5-13.5 [facility] Platelets Auto (Bld) [#/Vol] Ordered By: Monica Stewart on 05-30-2025 Platelets (Bld) [#/Vol] 183 10 3/uL 150-450 [facility] RBC Auto (Bld) [#/Vol]Ordere d By: Monica Stewart on 05-30-2025 RBC (Bld) [#/Vol] 3.57 10 6/uL Low 4.20-5.40 [facility] Serum or plasma anion gap de terminationOrdered By: Monica Stewart on 05-30-2025 Anion gap [Moles/Vol] 13.5 mmol/L [facility] Basophils/100 WBC Manual cnt (Bld)Ordered By: Monica Stewart on 05-29-2025 Basophils/100 WBC (Bld) 0.0 % Low 0.2-2.0 [facility] Eosinophils/100 WBC Manual c nt (Bld)Ordered By: Monica Stewart on 05-29-2025 Eosinophils/100 WBC (Bld) 0.0 % Low 0.9-7.0 [facility] Erythrocyte distribution wid th Auto (RBC) [Ratio]Ordered By: Monica Stewart on 05-29-2025 Erythrocyte distribution width (RBC) [Ratio] 16.6 % High 11.0-15.0 [facility] Estimated glomerular filtrat ion rate (GFR) non- AmericanOrdered By: Monica Stewart on 05-29-2025 GFR/1.73 sq M.predicted among non-blacks MDRD (S/P/Bld) [Vol rate/Area] 33 mL/min/{1.73_m2} Low >=60 mL/min/1.73 m 2 [facility] Glucose mean value [Mass/vol ume] in Blood Estimated from glycated hemoglobinOrdered By: Monica Stewart on 05-29-2025 Average glucose Estimated from glycated hemoglobin (Bld) [Mass/Vol] 209 mg/dL [facility] Hematocrit Auto (Bld) [Volum e fraction]Ordered By: Monica Stewart on 05-29-2025 Hematocrit (Bld) [Volume fraction] 32.2 % Low 36.0-48.0 [facility] Hemoglobin A1c percentageOrd ered By: Monica Stewart on 05-29-2025 HbA1c (Bld) [Mass fraction] 8.9 % High 4.5-6.2 [facility] Hemoglobin [Mass/volume] in BloodOrdered By: Monica Stewart on 05-29-2025 Hemoglobin (Bld) [Mass/Vol] 10.6 g/dL Low 12.0-16.0 [facility] Leukocytes [#/volume] correc gali for nucleated erythrocytes in Blood by Automated counOrdered By: Monica Stewart on 05-29-2025 WBC corrected for nucl RBC Auto (Bld) [#/Vol] 19.8 10 3/uL High 4.0-11.0 [facility] MCH Auto (RBC) [Entitic mass ]Ordered By: Monica Stewart on 05-29-2025 MCH (RBC) [Entitic mass] 29.9 pg 26.7-34.0 [facility] MCHC Auto (RBC) [Mass/Vol]Or dered By: Monica Stewart on 05-29-2025 MCHC (RBC) [Mass/Vol] 32.9 g/dL 29.9-35.2 [facility] MCV Auto (RBC) [Entitic vol] Ordered By: Monica Stewart on 05-29-2025 MCV (RBC) [Entitic vol] 91.0 fL 81.0-99.0 [facility] No Panel InformationOrdered By: Monica Stewart on 05-29-2025 1.2 mg/dL Low 1.8-2.4 [facility] 0.00 10 3/uL 0.00-0.70 [facility] 27.5 [facility] 42.0 mg/dL High 7.0-18.0 [facility] 8.3 mg/dL Low 8.5-10.1 [facility] 105 mmol/L 98-107 [facility] 0.59 10 3/uL Low 1.20-3.80 [facility] 28.4 mmol/L 21.0-32.0 [facility] 3.0 % Low 20.5-60.0 [facility] 1.53 mg/dL High 0.55-1.02 [facility] 1.18 10 3/uL High 0.30-0.80 [facility] 40 Low >=60 mL/min/1.73 m 2 [facility] 6.0 % 1.7-12.0 [facility] 18.01 10 3/uL High 1.4-6.5 [facility] 130 mg/dL High 74-106 [facility] 3.8 mmol/L 3.5-5.1 [facility] 143 mmol/L 136-145 [facility] Platelet mean volume Auto (B ld) [Entitic vol]Ordered By: Monica Stewart on 05-29-2025 Platelet mean volume (Bld) [Entitic vol] 10.3 fL 9.5-13.5 [facility] Platelets Auto (Bld) [#/Vol] Ordered By: Monica Stewart on 05-29-2025 Platelets (Bld) [#/Vol] 208 10 3/uL 150-450 [facility] RBC Auto (Bld) [#/Vol]Ordere d By: Monica Stewart on 05-29-2025 RBC (Bld) [#/Vol] 3.54 10 6/uL Low 4.20-5.40 [facility] Segmented neutrophils/100 WB C Manual cnt (Bld)Ordered By: Monica Stewart on 05-29-2025 Segmented neutrophils/100 WBC (Bld) 91.0 % High 43.0-75.0 [facility] Serum or plasma anion gap de terminationOrdered By: Monica Stewart on 05-29-2025 Anion gap [Moles/Vol] 13.4 [facility] Basophils Auto (Bld) [#/Vol] Ordered By: Analisa Bryant on 05-28-2025 Basophils (Bld) [#/Vol] 0.1 10 3/uL 0.0-0.1 [facility] Basophils/100 WBC Auto (Bld) Ordered By: Analisa Bryant on 05-28-2025 Basophils/100 WBC (Bld) 1.3 % 0.2-2.0 [facility] Eosinophils/100 WBC Auto (Bl d)Ordered By: Analisa Bryant on 05-28-2025 Eosinophils/100 WBC (Bld) 3.3 % 0.9-7.0 [facility] Erythrocyte distribution wid th Auto (RBC) [Ratio]Ordered By: Analisa Brynat on 05-28-2025 Erythrocyte distribution width (RBC) [Ratio] 16.9 % High 11.0-15.0 [facility] Estimated glomerular filtrat ion rate (GFR) non- AmericanOrdered By: Analisa Bryant on 05-28-2025 GFR/1.73 sq M.predicted among non-blacks MDRD (S/P/Bld) [Vol rate/Area] 34 mL/min/{1.73_m2} Low >=60 mL/min/1.73 m 2 [facility] Hematocrit Auto (Bld) [Volum e fraction]Ordered By: Analisa Bryant on 05-28-2025 Hematocrit (Bld) [Volume fraction] 34.4 % Low 36.0-48.0 [facility] Hemoglobin [Mass/volume] in BloodOrdered By: Analisa Bryant 05-28-2025 Hemoglobin (Bld) [Mass/Vol] 11.2 g/dL Low 12.0-16.0 [facility] Leukocytes [#/volume] correc gali for nucleated erythrocytes in Blood by Automated counOrdered By: Analisa Bryant on 05-28-2025 WBC corrected for nucl RBC Auto (Bld) [#/Vol] 6.9 10 3/uL 4.0-11.0 [facility] Lymphocytes Auto (Bld) [#/Vo l]Ordered By: Analisa Bryant on 05-28-2025 Lymphocytes (Bld) [#/Vol] 1.4 10 3/uL 1.2-3.8 [facility] Lymphocytes/100 WBC Auto (Bl d)Ordered By: Analisa Bryant on 05-28-2025 Lymphocytes/100 WBC (Bld) 20.0 % Low 20.5-60.0 [facility] MCH Auto (RBC) [Entitic mass ]Ordered By: Analisa Bryant on 05-28-2025 MCH (RBC) [Entitic mass] 29.7 pg 26.7-34.0 [facility] MCHC Auto (RBC) [Mass/Vol]Or dered By: Analisa Bryant on 05-28-2025 MCHC (RBC) [Mass/Vol] 32.6 g/dL 29.9-35.2 [facility] MCV Auto (RBC) [Entitic vol] Ordered By: Analisa Bryant on 05-28-2025 MCV (RBC) [Entitic vol] 91.2 fL 81.0-99.0 [facility] Monocytes Auto (Bld) [#/Vol] Ordered By: Analisa Bryant on 05-28-2025 Monocytes (Bld) [#/Vol] 0.6 10 3/uL 0.3-0.8 [facility] Monocytes/100 WBC Auto (Bld) Ordered By: Analisa Bryant on 05-28-2025 Monocytes/100 WBC (Bld) 8.9 % 1.7-12.0 [facility] Neutrophils Auto (Bld) [#/Vo l]Ordered By: Analisa Bryant on 05-28-2025 Neutrophils (Bld) [#/Vol] 4.6 10 3/uL 1.4-6.5 [facility] Neutrophils/100 WBC Auto (Bl d)Ordered By: Analisa Bryant on 05-28-2025 Neutrophils/100 WBC (Bld) 66.4 % 43.0-75.0 [facility] No Panel InformationOrdered By: Analisa Bryant on 05-28-2025 NO [facility] SEEN #/LPF Abnormal NONE SEEN [facility] Seen #/HPF Abnormal None Seen [facility] RARE [facility] TRACE #/HPF Abnormal NONE SEEN [facility] Negative NEGATIVE [facility] SMALL Abnormal NEGATIVE [facility] CLEAR CLEAR [facility] LT. YELLOW YELLOW [facility] 100 mg/dL Abnormal NEGATIVE [facility] NONE SEEN NONE SEEN [facility] 7.0 5.0-9.0 [facility] >=300 mg/dL Abnormal NEG/TRACE [facility] 0-2 #/HPF Abnormal NONE SEEN [facility] 1.020 1.005-1.025 [facility] RARE #/LPF NONE/RARE [facility] 0.2 EU/dL 0.2-1.0 [facility] 6395.0 pg/mL Critically high <=1800.0 [facility] 18.7 pg/mL 4.0-51.3 [facility] 32.4 [facility] 48.0 mg/dL High 7.0-18.0 [facility] 0.2 10 3/uL 0.0-0.7 [facility] 8.5 mg/dL 8.5-10.1 [facility] 107 mmol/L 98-107 [facility] 29.3 mmol/L 21.0-32.0 [facility] 1.48 mg/dL High 0.55-1.02 [facility] 0.01 10 3/uL 0.00-0.03 [facility] 41 Low >=60 mL/min/1.73 m 2 [facility] 0.1 % 0.0-0.5 [facility] 64 mg/dL Low 74-106 [facility] 4.1 mmol/L 3.5-5.1 [facility] 143 mmol/L 136-145 [facility] Platelet mean volume Auto (B ld) [Entitic vol]Ordered By: Analisa Bryant on 05-28-2025 Platelet mean volume (Bld) [Entitic vol] 10.0 fL 9.5-13.5 [facility] Platelets Auto (Bld) [#/Vol] Ordered By: Analisa Bryant on 05-28-2025 Platelets (Bld) [#/Vol] 236 10 3/uL 150-450 [facility] RBC Auto (Bld) [#/Vol]Ordere d By: Analisa Bryant on 05-28-2025 RBC (Bld) [#/Vol] 3.77 10 6/uL Low 4.20-5.40 [facility] Serum or plasma anion gap de terminationOrdered By: Analisa Bryant on 05-28-2025 Anion gap [Moles/Vol] 10.8 mmol/L [facility] Basophils Auto (Bld) [#/Vol] Ordered By: Cheng Aviles on 05-11-2025 Basophils (Bld) [#/Vol] 0.1 10 3/uL 0.0-0.1 [facility] Basophils/100 WBC Auto (Bld) Ordered By: Cheng Aviles on 05-11-2025 Basophils/100 WBC (Bld) 1.2 % 0.2-2.0 [facility] Eosinophils/100 WBC Auto (Bl d)Ordered By: Cheng Aviles on 05-11-2025 Eosinophils/100 WBC (Bld) 2.7 % 0.9-7.0 [facility] Erythrocyte distribution wid th Auto (RBC) [Ratio]Ordered By: Cheng Aviles on 05-11-2025 Erythrocyte distribution width (RBC) [Ratio] 15.7 % High 11.0-15.0 [facility] Estimated glomerular filtrat ion rate (GFR) non- AmericanOrdered By: Rica Kaplan on 05-11-2025 GFR/1.73 sq M.predicted among non-blacks MDRD (S/P/Bld) [Vol rate/Area] 36 mL/min/{1.73_m2} Low >=60 mL/min/1.73 m 2 [facility] Hematocrit Auto (Bld) [Volum e fraction]Ordered By: Cheng Aviles on 05-11-2025 Hematocrit (Bld) [Volume fraction] 34.2 % Low 36.0-48.0 [facility] Hemoglobin [Mass/volume] in BloodOrdered By: Cheng Aviles on 05-11-2025 Hemoglobin (Bld) [Mass/Vol] 10.9 g/dL Low 12.0-16.0 [facility] Laboratory - Chemistry and C hemistry - challengeOrdered By: Rica Kaplan on 05-11-2025 Calcium [Mass/Vol] 8.6 mg/dL 8.5-10.1 [facility] Chloride [Moles/Vol] 107 mmol/L 98-107 [facility] CO2 [Moles/Vol] 27.7 mmol/L 21.0-32.0 [facility] Creatinine [Mass/Vol] 1.40 mg/dL High 0.55-1.02 [facility] GFR/1.73 sq M.predicted MDRD (S/P/Bld) [Vol rate/Area] 44 mL/min/{1.73_m2} Low >=60 mL/min/1.73 m 2 [facility] Glucose [Mass/Vol] 93 mg/dL 74-106 [facility] Potassium [Moles/Vol] 4.2 mmol/L 3.5-5.1 [facility] Sodium [Moles/Vol] 144 mmol/L 136-145 [facility] Urea nitrogen [Mass/Vol] 34.0 mg/dL High 7.0-18.0 [facility] Urea nitrogen/Creatinine [Mass ratio] 24.3 mg/mg [facility] Laboratory - Hematology and Cell countsOrdered By: Cheng Aviles on 05-11-2025 Immature granulocytes/100 WBC (Bld) 0.4 % 0.0-0.5 [facility] Leukocytes [#/volume] correc gali for nucleated erythrocytes in Blood by Automated counOrdered By: Cheng Aviles on 05-11-2025 WBC corrected for nucl RBC Auto (Bld) [#/Vol] 8.5 10 3/uL 4.0-11.0 [facility] Lymphocytes Auto (Bld) [#/Vo l]Ordered By: Cheng Aviles on 05-11-2025 Lymphocytes (Bld) [#/Vol] 1.4 10 3/uL 1.2-3.8 [facility] Lymphocytes/100 WBC Auto (Bl d)Ordered By: Cheng Aivles on 05-11-2025 Lymphocytes/100 WBC (Bld) 16.0 % Low 20.5-60.0 [facility] MCH Auto (RBC) [Entitic mass ]Ordered By: Cheng Aviles on 05-11-2025 MCH (RBC) [Entitic mass] 28.5 pg 26.7-34.0 [facility] MCHC Auto (RBC) [Mass/Vol]Or dered By: Cheng Aviles on 05-11-2025 MCHC (RBC) [Mass/Vol] 31.9 g/dL 29.9-35.2 [facility] MCV Auto (RBC) [Entitic vol] Ordered By: Cheng Aviles on 05-11-2025 MCV (RBC) [Entitic vol] 89.5 fL 81.0-99.0 [facility] Monocytes Auto (Bld) [#/Vol] Ordered By: Cheng Aviles on 05-11-2025 Monocytes (Bld) [#/Vol] 0.6 10 3/uL 0.3-0.8 [facility] Monocytes/100 WBC Auto (Bld) Ordered By: Cheng Aviles on 05-11-2025 Monocytes/100 WBC (Bld) 7.5 % 1.7-12.0 [facility] Neutrophils Auto (Bld) [#/Vo l]Ordered By: Cheng Aviles on 05-11-2025 Neutrophils (Bld) [#/Vol] 6.1 10 3/uL 1.4-6.5 [facility] Neutrophils/100 WBC Auto (Bl d)Ordered By: Cheng Aviles on 05-11-2025 Neutrophils/100 WBC (Bld) 72.2 % 43.0-75.0 [facility] No Panel InformationOrdered By: Cheng Aviles on 05-11-2025 Eosinophils # (Auto) 0.2 10 3/uL 0.0-0.7 [facility] Immature Granulocyte # (Auto) 0.03 10 3/uL 0.00-0.03 [facility] 0.2 10 3/uL 0.0-0.7 [facility] 0.03 10 3/uL 0.00-0.03 [facility] 0.4 % 0.0-0.5 [facility] No Panel InformationOrdered By: Rica Kaplan on 05-11-2025 24.3 [facility] 34.0 mg/dL High 7.0-18.0 [facility] 8.6 mg/dL 8.5-10.1 [facility] 107 mmol/L 98-107 [facility] 27.7 mmol/L 21.0-32.0 [facility] 1.40 mg/dL High 0.55-1.02 [facility] 44 Low >=60 mL/min/1.73 m 2 [facility] 93 mg/dL 74-106 [facility] 4.2 mmol/L 3.5-5.1 [facility] 144 mmol/L 136-145 [facility] Platelet mean volume Auto (B ld) [Entitic vol]Ordered By: Cheng Aviles on 05-11-2025 Platelet mean volume (Bld) [Entitic vol] 10.0 fL 9.5-13.5 [facility] Platelets Auto (Bld) [#/Vol] Ordered By: Cheng Aviles on 05-11-2025 Platelets (Bld) [#/Vol] 279 10 3/uL 150-450 [facility] RBC Auto (Bld) [#/Vol]Ordere d By: Cheng Aviles on 05-11-2025 RBC (Bld) [#/Vol] 3.82 10 6/uL Low 4.20-5.40 [facility] Serum or plasma anion gap de terminationOrdered By: Rica Kaplan on 05-11-2025 Anion gap [Moles/Vol] 13.5 mmol/L [facility] Telephoneon 05-07-2025 Telephone [id number] Joe Call 1945 F Date Provider Department Center 05/07/2025 DESHAWN PHILLIP [facility] Family History Problem Relation Age of Onset Heart disease Mother Heart attack Father Coronary artery disease Other Diabetes Other Polycystic kidney disease Other Family Status - Relation Status Age at Mother Father Sister Brother Other [facility] Office Visiton 04-22-2025 Follow-up visit [id number] Joe Call Bela 1945 F Date Provider Department Center 04/22/2025 RICA DEAN Family History Problem Relation Age of Onset Heart disease Mother Heart attack Father Coronary artery disease Other Diabetes Other Polycystic kidney disease Other Family Status - Relation Status Age at Mother Father Sister Brother Other Level of Service:[address]171 [place] OFFICE/OUTPATIENT ESTABLISHED HIGH MDM 40 MIN Normal [facility] Alanine aminotransferase [En zymatic activity/volume] in Serum or PlasmaOrdered By: Jorge Calix on 03-12-2025 ALT [Catalytic activity/Vol] Alanine aminotransferase [Enzymatic activity/volume] in Serum or Plasma [facility] ALT [Catalytic activity/Vol] 9 U/L Normal [facility] Comment on above: Performed By: #### M G, BMP #### [facility] [address] [place] [address] [place] Albumin [Mass/volume] in Ser um or Plasma by Bromocresol green (BCG) dye binding methoOrdered By: Jorge Calix on 03-12-2025 Albumin BCG dye [Mass/Vol] Albumin [Mass/volume] in Serum or Plasma by Bromocresol green (BCG) dye binding metho Low 3.5-5.7 [facility] Albumin BCG dye [Mass/Vol] 3.0 g/dL Low 3.5-5.7 [facility] Alkaline phosphatase [Enzyma tic activity/volume] in Serum or PlasmaOrdered By: Jorge Calix on 03-12-2025 ALP [Catalytic activity/Vol] Alkaline phosphatase [Enzymatic activity/volume] in Serum or Plasma 34-104 [facility] ALP [Catalytic activity/Vol] 104 U/L Normal 34-104 [facility] Comment on above: Performed By: #### M G, BMP #### [facility] [address] [place] [id number] [place] Appearance of UrineOrdered B y: Jorge Calix on 03-12-2025 Appearance (U) Urine appearance Clear [facility] Appearance (U) Clear Normal Clear [facility] Comment on above: Order Comment: Name Collection Type:: Other Performed By: #### G MICK #### Point of Care testing , Aspartate aminotransferase [ Enzymatic activity/volume] in Serum or PlasmaOrdered By: Jorge Calix on 03-12-2025 AST [Catalytic activity/Vol] Aspartate aminotransferase [Enzymatic activity/volume] in Serum or Plasma Low 13-39 [facility] AST [Catalytic activity/Vol] 11 U/L Low 13-39 [facility] Comment on above: Performed By: #### Vandana Cramer, BMP #### [address] BNP ser/plasOrdered By: Steven Calix on 03-12-2025 Natriuretic peptide B (Bld) [Mass/Vol] 773.0 pg/mL High 5-100 [facility] Comment on above: Result Comment: PERF ORMED BY: [place] [address] PATHOLOGIST AUTO PHONE INSTALLER MAY HYDE M.D. Performed By: #### Vandana Cramer, BMP #### [address] Bacteria [Presence] in Urine by AutomatedOrdered By: Jorge Calix on 03-12-2025 Bacteria Auto Ql (U) Bacteria [Presence] in Urine by Automated High None Seen [facility] Bacteria Auto Ql (U) 2+ [HPF] High None Seen [facility] Basic Metabolic Panelon 05-0 Creatinine Clr Calc Pharmacy 35.31 Normal [facility] Comment on above: Performed By: #### Vandana Cramer, BMP #### [address] Estimated GFR 31.389 mL/Min Normal [facility] Comment on above: Performed By: #### Vandana Cramer, BMP #### [address] Basophils Auto (Bld) [#/Vol] Ordered By: Jorge Calix on 03-12-2025 Basophils (Bld) [#/Vol] Automated basophil count 0.0-0.2 [facility] Basophils [#/volume] in Bloo d by Automated countOrdered By: Jorge Calix on 03-12-2025 Basophils (Bld) [#/Vol] 0.1 10*3/uL Normal 0.0-0.2 [facility] Comment on above: Result Comment: PERF ORMED BY: [place] [address] PATHOLOGIST AUTO PHONE INSTALLER MAY HYDE M.D. Performed By: #### Vandana Cramer, BMP #### [address] Basophils/100 WBC Auto (Bld) Ordered By: Jorge Calix on 03-12-2025 Basophils/100 WBC (Bld) Automated basophil % . [facility] Basophils/100 leukocytes in Blood by Automated countOrdered By: Jorge Calix on 03-12-2025 Basophils/100 WBC (Bld) 0.8 % Normal . [facility] Comment on above: Performed By: #### Vandana Cramer, BMP #### [address] Bilirubin Test strip Ql (U)O rdered By: Jorge Calix on 03-12-2025 Bilirubin Ql (U) Bilirubin.total [Presence] in Urine by Test strip Negative [facility] Bilirubin Ql (U) Negative Negative [facility] Bilirubin.direct [Mass/volum e] in Serum or PlasmaOrdered By: Jorge Calix on 03-12-2025 Bilirubin.direct [Mass/Vol] Bilirubin.direct [Mass/volume] in Serum or Plasma 0.03-0.18 [facility] Bilirubin.direct [Mass/Vol] 0.10 mg/dL 0.03-0.18 [facility] Bilirubin.total [Mass/volume ] in Serum or PlasmaOrdered By: Jorge Calix on 03-12-2025 Bilirubin [Mass/Vol] Bilirubin.total [Mass/volume] in Serum or Plasma 0.3-1.0 [facility] Bilirubin [Mass/Vol] 0.5 mg/dL Normal 0.3-1.0 [facility] Comment on above: Performed By: #### Vandana Cramer, BMP #### [facility] [address] Calcium [Mass/volume] in Ser um or PlasmaOrdered By: Jorge Calix on 03-12-2025 Calcium [Mass/Vol] Calcium [Mass/volume ] in Serum or Plasma Low 8.6-10.3 [facility] Calcium [Mass/Vol] 8.3 mg/dL Low 8.6-10.3 [facility] Comment on above: Performed By: #### M Bela, BMP #### [address] Capillary blood glucose wander urement by glucometer (mass/volume)Ordered By: Jorge Calix on 03-12-2025 Glucose [Mass/Vol] 364 mg/dL Normal [facility] Comment on above: Random Glucose Refer ence Range is dependent on time and content of last meal. Glucose of more than 200 mg/dL in a nonstressed, ambulatory subject supports the diagnosis of Diabetes Mellitus. Result Comment: [place] Glucose Reference Range is dependent on time and content of last meal. Glucose of more than 200 mg/dL in a nonstressed, ambulatory subject supports the diagnosis of Diabetes Mellitus. PERFORMED BY: [place] [address] PATHOLOGIST AUTO PHONE INSTALLER MAY HYDE M.D. Performed By: #### A [address] [facility] eA #### [address] Carbon dioxide, total [Moles /volume] in Serum or PlasmaOrdered By: Jorge Calix on 03-12-2025 CO2 [Moles/Vol] Carbon dioxide, tota l [Moles/volume] in Serum or Plasma High 21.0-31.0 [facility] CO2 [Moles/Vol] 37.0 mmol/L High 21.0-31.0 [facility] Comment on above: Performed By: #### Vandana Cramer, BMP #### [place] [address] [place] Chloride [Moles/volume] in S oziel or PlasmaOrdered By: Jorge Calix on 03-12-2025 Chloride [Moles/Vol] Chloride [Moles/vol ume] in Serum or Plasma Low 98-107 [facility] Chloride [Moles/Vol] 89 mmol/L Low 98-107 [facility] Comment on above: Performed By: #### Vandana Cramer, BMP #### [facility] [address] [place] [address] [place] Color Auto (U)Ordered By: Amilcar Calix on 03-12-2025 Color (U) Color of Urine by Auto Yellow [facility] Color of Urine by AutoOrdere d By: Jorge Calix on 03-12-2025 Color (U) Light-yellow Normal Yellow [facility] Comment on above: Order Comment: Name Collection Type:: Other Performed By: #### G MICK #### Point of Care testing , Complete Blood Count Auto Di ffon 03-12-2025 Mean Corpuscular HGB Conc 33.3 g/dL Normal 32.0-35.0 [facility] Comment on above: Performed By: #### Vandana Cramer, BMP #### [place] [address] [place] Monocytes/100 WBC (Bld) 18.66 % Normal 0.00-20.00 [facility] Comment on above: Performed By: #### Vandana Cramer, BMP #### [place] [address] [place] NRBC% 0.1 /100{WBC} Normal 0-0.5 [facility] Comment on above: Performed By: #### Vandana Cramer, BMP #### [place] [address] [place] Creatine kinase [Enzymatic a ctivity/volume] in Serum or PlasmaOrdered By: Jorge Calix on 03-12-2025 CK [Catalytic activity/Vol] Creatine kinase [Enzymatic activity/volume] in Serum or Plasma 30-223 [facility] CK [Catalytic activity/Vol] 57 U/L Normal 30-223 [facility] Comment on above: Performed By: #### Vandana Cramer, BMP #### [place] [address] [place] Creatinine [Mass/volume] in Serum or PlasmaOrdered By: Jorge Calix on 03-12-2025 Creatinine [Mass/Vol] Creatinine [Mass/v olume] in Serum or Plasma High 0.60-1.20 [facility] Creatinine [Mass/Vol] 1.66 mg/dL High 0.60-1.20 [facility] Comment on above: Performed By: #### M G, BMP #### [address] Dipstick and Microscopicon 0 03-12-2025 Bacteria,Urine 2+ High None Seen [facility] Comment on above: Order Comment: Name Collection Type:: Other Performed By: #### G LULS #### Point of Care testing , Bilirubin,Urine Negative Normal Negative [facility] Comment on above: Order Comment: Name Collection Type:: Other Performed By: #### G LULS #### Point of Care testing , Glucose Ql (U) >= High Normal [facility] Comment on above: Order Comment: Name Collection Type:: Other Performed By: #### G LULS #### Point of Care testing , Hyaline Casts,Urine 0-8 Normal 0-8 [facility] Comment on above: Order Comment: Name Collection Type:: Other Result Comment: PERF ORMED BY: [place] [address] PATHOLOGIST AUTO PHONE INSTALLER MAY HYDE M.D. Performed By: #### G LULS #### Point of Care testing , Nitrite,Urine Negative Normal Negative [facility] Comment on above: Order Comment: Name Collection Type:: Other Performed By: #### G LULS #### Point of Care testing , Occult Blood,Urine Negative Normal Negative [facility] Comment on above: Order Comment: Name Collection Type:: Other Result Comment: PERF ORMED BY: [place] [id number] PATHOLOGIST AUTO PHONE INSTALLER MAY HYDE M.D. Performed By: #### G LULS #### Point of Care testing , RBC,Urine 1-2 Normal 0-4 [facility] Comment on above: Order Comment: Name Collection Type:: Other Performed By: #### G LULS #### Point of Care testing , Specificy Occidental,Urine 1.012 Normal 1.001-1.030 [facility] Comment on above: Order Comment: Name Collection Type:: Other Performed By: #### G LULS #### Point of Care testing , Squamous Epithelial Cell,Urine 1-2 Normal 0-2 [facility] Comment on above: Order Comment: Name Collection Type:: Other Performed By: #### G LULS #### Point of Care testing , Urobilinogen,Urine Normal Normal Normal [facility] Comment on above: Order Comment: Name Collection Type:: Other Performed By: #### G LULS #### Point of Care testing , WBC,Urine 3-4 Normal 0-4 [facility] Comment on above: Order Comment: Name Collection Type:: Other Performed By: #### G LULS #### Point of Care testing , ECG 12 lead ECGon 03-12-2025 ECG 12 lead ECG [facility] [address] Electrocardiograph Report Signed Patient: Joe Call MR#: [id number] 0 : 1945 Acct:[id number] Age/Sex: 79 / F ADM Date: 03/12/25 Loc: ER Room: Type: [facility] ER Attending Dr: Ordering Provider: Jorge [...] 30 bpm Confirmed by Jorge Calix DO ([id number]) on 03/12/2025 6:57:40 PM Referred By: Electronically Signed By: Jorge Calix DO Transcribed By: MUS Signed By Jorge Calix DO 5 1857 Normal [facility] Eosinophils Auto (Bld) [#/Vo l]Ordered By: Jorge Calix on 03-12-2025 Eosinophils (Bld) [#/Vol] Automated eosinophil count 0.0-0.45 [facility] Eosinophils [#/volume] in Bl ood by Automated countOrdered By: Jorge Calix on 03-12-2025 Eosinophils (Bld) [#/Vol] 0.1 10*3/uL Normal 0.0-0.45 [facility] Comment on above: Performed By: #### Vandana Cramer, BMP #### [facility] [address] Eosinophils/100 WBC Auto (Bl d)Ordered By: Jorge Calix on 03-12-2025 Eosinophils/100 WBC (Bld) Automated eosinophil % . [facility] Eosinophils/100 leukocytes i n Blood by Automated countOrdered By: Jorge Calix on 03-12-2025 Eosinophils/100 WBC (Bld) 1.0 % Normal . [facility] Comment on above: Performed By: #### Vandana Cramer, BMP #### [facility] [address] [place] [address] Epithelial cells.squamous [# /area] in Urine sediment by Automated countOrdered By: Jorge Calix on 03-12-2025 Epithelial cells.squamous Auto (Urine sed) [#/Area] Epithelial cells.squamous [#/area] in Urine sediment by Automated count 0-2 [facility] Epithelial cells.squamous Auto (Urine sed) [#/Area] 1-2 [HPF] 0-2 [facility] Erythrocyte distribution wid th Auto (RBC) [Ratio]Ordered By: Jorge Calix on 03-12-2025 Erythrocyte distribution width (RBC) [Ratio] Erythrocyte distribution width [Ratio] by Automated count 11.9-15.3 [facility] Erythrocyte distribution wid th [Ratio] by Automated countOrdered By: Jorge Calix on 03-12-2025 Erythrocyte distribution width (RBC) [Ratio] 14.5 % Normal 11.9-15.3 [facility] Comment on above: Performed By: #### Vandana Cramer, KAREN #### [facility] [address] Erythrocytes [#/area] in Uri ne sediment by Automated countOrdered By: Jorge Calix on 03-12-2025 RBC Auto (Urine sed) [#/Area] Erythrocytes [#/area] in Urine sediment by Automated count 0-4 [facility] RBC Auto (Urine sed) [#/Area] 1-2 [HPF] 0-4 [facility] Erythrocytes [#/volume] in B lood by Automated countOrdered By: Jorge Calix on 03-12-2025 RBC (Bld) [#/Vol] 4.33 10*6/uL Normal 3.60-5.00 [facility] Comment on above: Performed By: #### Vandana Cramer, BMP #### [facility] [address] Globulin Calc (S) [Mass/Vol] Ordered By: Jogre Calix on 03-12-2025 Globulin (S) [Mass/Vol] Serum globulin measurement by calculation (mass/volume) [facility] Glucose Glucometer (BldC) [M ass/Vol]Ordered By: Jorge Calix on 03-12-2025 Glucose [Mass/Vol] Capillary blood gluc ose measurement by glucometer (mass/volume) [facility] Glucose [Mass/volume] in Ser um or PlasmaOrdered By: Jorge Calix on 03-12-2025 Glucose [Mass/Vol] Glucose [Mass/volume ] in Serum or Plasma Critically high 70-100 [facility] Glucose [Mass/Vol] 520 mg/dL Off scale high 70-100 [facility] Comment on above: Critical Result Call ed [...] Performed By: #### Vandana Cramer, KAREN #### [address] Glucose [Mass/volume] in Uri ne by Test stripOrdered By: Jorge Calix on 03-12-2025 Glucose Test strip (U) [Mass/Vol] Glucose [Mass/volume] in Urine by Test strip High Normal [facility] Glucose Test strip (U) [Mass/Vol] >=1000 mg/dL High Normal [facility] Hematocrit Auto (Bld) [Volum e fraction]Ordered By: Jorge Calix on 03-12-2025 Hematocrit (Bld) [Volume fraction] Hematocrit [Volume Fraction] of Blood by Automated count 34.0-46.4 [facility] Hematocrit [Volume Fraction] of Blood by Automated countOrdered By: Jorge Calix on 03-12-2025 Hematocrit (Bld) [Volume fraction] 38.3 % Normal 34.0-46.4 [facility] Comment on above: Performed By: #### Vandana Cramer, KAREN #### [address] Hemoglobin Test strip Ql (U) Ordered By: Jorge Calix on 03-12-2025 Hemoglobin Ql (U) Hemoglobin [Presence ] in Urine by Test strip Negative [facility] Hemoglobin Ql (U) Negative Negative [facility] Hemoglobin [Mass/volume] in BloodOrdered By: Jorge Calix on 03-12-2025 Hemoglobin (Bld) [Mass/Vol] Hemoglobin [Mass/volume] in Blood 11.8-15.4 [facility] Hemoglobin (Bld) [Mass/Vol] 12.8 g/dL Normal 11.8-15.4 [facility] Comment on above: Performed By: #### Vandana Cramer, BMP #### [address] Hepatic Panelon 03-12-2025 Albumin [Mass/Vol] 3.0 g/dL Low 3.5-5.7 [facility] Comment on above: Performed By: #### M Bela, BMP #### [facility] [address] Bilirubin,Indirect 0.4 mg/dL Normal [facility] Comment on above: Performed By: #### M G, BMP #### [facility] [address] Bilirubin.indirect [Mass/Vol] 0.10 mg/dL Normal 0.03-0.18 [facility] Comment on above: Performed By: #### M G, BMP #### [facility] [address] Hyaline casts [#/area] in Ur ine sediment by Automated countOrdered By: Jorge Calix on 03-12-2025 Hyaline casts Auto (Urine sed) [#/Area] Hyaline casts [#/area] in Urine sediment by Automated count 0-8 [facility] Hyaline casts Auto (Urine sed) [#/Area] 0-8 [LPF] 0-8 [facility] INR in Platelet poor plasma by Coagulation assayOrdered By: Jorge Calix on 03-12-2025 INR Coag (PPP) [Relative time] INR in Platelet poor plasma by Coagulation assay [facility] INR Coag (PPP) [Relative time] 1.7 {INR} Normal [facility] Comment on above: INR Therapeutic Rang [...] heart valves: 3 - 4.5 PERFORMED BY: [place] [address] PATHOLOGIST AUTO PHONE INSTALLER MAY HYDE M.D. Performed By: #### M G, BMP #### [address] Ketones Test strip Ql (U)Ord ered By: Jorge Calix on 03-12-2025 Ketones Ql (U) Ketones [Presence] i n Urine by Test strip Negative [facility] Ketones [Presence] in Urine by Test stripOrdered By: Jorge Calix on 03-12-2025 Ketones Ql (U) Negative Normal Negative [facility] Comment on above: Order Comment: Name Collection Type:: Other Performed By: #### G LULS #### Point of Care testing , Leukocyte esterase [Presence ] in Urine by Test stripOrdered By: Jorge Calix on 03-12-2025 Leukocyte esterase Test strip Ql (U) Leukocyte esterase [Presence] in Urine by Test strip Negative [facility] Leukocyte esterase Test strip Ql (U) Negative Normal Negative [facility] Comment on above: Order Comment: Name Collection Type:: Other Performed By: #### G LULS #### Point of Care testing , Leukocytes [#/area] in Urine sediment by Automated countOrdered By: Jorge Calix on 03-12-2025 WBC Auto (Urine sed) [#/Area] Leukocytes [#/area] in Urine sediment by Automated count 0-4 [facility] WBC Auto (Urine sed) [#/Area] 3-4 [HPF] 0-4 [facility] Leukocytes [#/volume] correc gali for nucleated erythrocytes in Blood by Automated counOrdered By: Jorge Calix on 03-12-2025 WBC corrected for nucl RBC Auto (Bld) [#/Vol] Leukocytes [#/volume] corrected for nucleated erythrocytes in Blood by Automated coun 3.8-11.6 [facility] WBC corrected for nucl RBC Auto (Bld) [#/Vol] 9.0 10*3/uL 3.8-11.6 [facility] Leukocytes [#/volume] in Blo od by Automated countOrdered By: Jorge Calix on 03-12-2025 WBC (Bld) [#/Vol] 9.0 10*3/uL Normal 3.8-11.6 [facility] Comment on above: Performed By: #### Vandana Cramer, BMP #### [facility] [address] Lymphocytes Auto (Bld) [#/Vo l]Ordered By: Jorge Calix on 03-12-2025 Lymphocytes (Bld) [#/Vol] Lymphocytes [#/volume] in Blood by Automated count 1.00-4.8 [facility] Lymphocytes [#/volume] in Bl ood by Automated countOrdered By: Jorge Calix on 03-12-2025 Lymphocytes (Bld) [#/Vol] 1.3 10*3/uL Normal 1.00-4.8 [facility] Comment on above: Performed By: #### Vandana Cramer, BMP #### [facility] [address] [place] [address] Lymphocytes/100 WBC Auto (Bl d)Ordered By: Jorge Calix on 03-12-2025 Lymphocytes/100 WBC (Bld) Lymphocytes/100 leukocytes in Blood by Automated count . [facility] Lymphocytes/100 leukocytes i n Blood by Automated countOrdered By: Jorge Calix on 03-12-2025 Lymphocytes/100 WBC (Bld) 14.2 % Normal . [facility] Comment on above: Performed By: #### Vandana Cramer, BMP #### [facility] [address] [place] [address] MCH Auto (RBC) [Entitic mass ]Ordered By: Jorge Calix on 03-12-2025 MCH (RBC) [Entitic mass] MCH [Entitic mass] by Automated count 24.7-34.3 [facility] MCH [Entitic mass] by Automa gali countOrdered By: Jorge Calix on 03-12-2025 MCH (RBC) [Entitic mass] 29.5 pg Normal 24.7-34.3 [facility] Comment on above: Performed By: #### Vandana Cramer, BMP #### [facility] [address] MCHC Auto (RBC) [Mass/Vol]Or dered By: Jorge Calix on 03-12-2025 MCHC (RBC) [Mass/Vol] MCHC [Mass/volume] by Automated count 32.0-35.0 [facility] MCHC (RBC) [Mass/Vol] 33.3 g/dL 32.0-35.0 [facility] MCV Auto (RBC) [Entitic vol] Ordered By: Jorge Calix on 03-12-2025 MCV (RBC) [Entitic vol] MCV [Entitic volume] by Automated count 80-100 [facility] MCV [Entitic volume] by Auto mated countOrdered By: Jorge Calix on 03-12-2025 MCV (RBC) [Entitic vol] 88.4 fL Normal 80-100 [facility] Comment on above: Performed By: #### Vandana Cramer, BMP #### [facility] [address] [place] [address] Magnesium [Mass/volume] in S oziel or PlasmaOrdered By: Jorge Calix on 03-12-2025 Magnesium [Mass/Vol] Magnesium [Mass/vol ume] in Serum or Plasma Low 1.9-2.7 [facility] Magnesium [Mass/Vol] 1.1 mg/dL Low 1.9-2.7 [facility] Comment on above: Result Comment: PERF ORMED BY: [address] [place] [address] PATHOLOGIST AUTO PHONE INSTALLER MAY HYDE M.D. Performed By: #### aVndana Cramer, BMP #### [facility] [address] [place] [address] Monocyte distribution width [Entitic volume] in Blood by AutomatedOrdered By: Jorge Calix on 03-12-2025 Monocyte distribution width Auto (Bld) [Entitic vol] Monocyte distribution width [Entitic volume] in Blood by Automated 0.00-20.00 [facility] Monocyte distribution width Auto (Bld) [Entitic vol] 18.66 % 0.00-20.00 [facility] Monocytes Auto (Bld) [#/Vol] Ordered By: Jorge Calix on 03-12-2025 Monocytes (Bld) [#/Vol] Automated blood monocyte count 0.0-0.8 [facility] Monocytes [#/volume] in Bloo d by Automated countOrdered By: Jorge Calix on 03-12-2025 Monocytes (Bld) [#/Vol] 0.5 10*3/uL Normal 0.0-0.8 [facility] Comment on above: Performed By: #### Vandana Cramer, BMP #### [facility] [address] Monocytes/100 WBC Auto (Bld) Ordered By: Jorge Calix on 03-12-2025 Monocytes/100 WBC (Bld) Automated monocyte % . [facility] Monocytes/100 leukocytes in Blood by Automated countOrdered By: Jorge Calix on 03-12-2025 Monocytes/100 WBC (Bld) 5.9 % Normal . [facility] Comment on above: Performed By: #### Vandana Cramer, BMP #### [facility] [address] [place] [address] [place] Natriuretic peptide B [Mass/ Vol]Ordered By: Jorge Calix on 03-12-2025 Natriuretic peptide B (Bld) [Mass/Vol] BNP ser/plas High 5-100 [facility] Neutrophils Auto (Bld) [#/Vo l]Ordered By: Jorge Calix on 03-12-2025 Neutrophils (Bld) [#/Vol] Neutrophils [#/volume] in Blood by Automated count 1.8-7.7 [facility] Neutrophils [#/volume] in Bl ood by Automated countOrdered By: Jorge Calix on 03-12-2025 Neutrophils (Bld) [#/Vol] 7.0 10*3/uL Normal 1.8-7.7 [facility] Comment on above: Performed By: #### aVndana Cramer, BMP #### [facility] [address] [place] [address] [place] Neutrophils/100 WBC Auto (Bl d)Ordered By: Jorge Calix on 03-12-2025 Neutrophils/100 WBC (Bld) Automated neutrophil % . [facility] Neutrophils/100 leukocytes i n Blood by Automated countOrdered By: Jorge Calix on 03-12-2025 Neutrophils/100 WBC (Bld) 78.1 % Normal . [facility] Comment on above: Performed By: #### KAREN Hansen #### [facility] [address] [place] [address] Nitrite Test strip Ql (U)Ord ered By: Jorge Calix on 03-12-2025 Nitrite Ql (U) Nitrite [Presence] i n Urine by Test strip Negative [facility] Nitrite Ql (U) Negative Negative [facility] No Panel InformationOrdered By: Jorge Calix on 03-12-2025 Estimated GFR (CKD-EPI) 31.389 mL/Min [facility] Creatinine Clearance (Chem 35.31 [facility] 31.389 mL/Min [facility] 35.31 [facility] Nucleated erythrocytes [Pres ence] in Blood by Automated countOrdered By: Jorge Calix on 03-12-2025 Nucleated RBC Auto Ql (Bld) Nucleated erythrocytes [Presence] in Blood by Automated count 0-0.5 [facility] Nucleated RBC Auto Ql (Bld) 0.1 /100{WBC} 0-0.5 [facility] Platelet mean volume Auto (B ld) [Entitic vol]Ordered By: Jorge Calix on 03-12-2025 Platelet mean volume (Bld) [Entitic vol] Platelet mean volume [Entitic volume] in Blood by Automated count 6.3-10.7 [facility] Platelet mean volume [Entiti c volume] in Blood by Automated countOrdered By: Jorge Calix on 03-12-2025 Platelet mean volume (Bld) [Entitic vol] 9.6 fL Normal 6.3-10.7 [facility] Comment on above: Performed By: #### KAREN Hansen #### [facility] [address] [place] [address] Platelets Auto (Bld) [#/Vol] Ordered By: Jorge Calix on 03-12-2025 Platelets (Bld) [#/Vol] Platelets [#/volume] in Blood by Automated count 150-450 [facility] Platelets [#/volume] in Bloo d by Automated countOrdered By: Jorge Calix on 03-12-2025 Platelets (Bld) [#/Vol] 194 10*3/uL Normal 150-450 [facility] Comment on above: Performed By: #### Vandana Cramer, KAREN #### [facility] [address] [place], [place] [address] [place] Potassium [Moles/volume] in Serum or PlasmaOrdered By: Jorge Calix on 03-12-2025 Potassium [Moles/Vol] Potassium [Moles/v olume] in Serum or Plasma 3.5-5.1 [facility] Potassium [Moles/Vol] 4.0 mmol/L Normal 3.5-5.1 [facility] Comment on above: Performed By: #### M Bela, KAREN #### [facility] [address] [place] [address] Protein Test strip (U) [Mass /Vol]Ordered By: Jorge Calix on 03-12-2025 Protein (U) [Mass/Vol] Protein [Mass/vol ume] in Urine by Test strip High Negative [facility] Protein [Mass/volume] in Ser um or PlasmaOrdered By: Jorge Calix on 03-12-2025 Protein [Mass/Vol] Protein [Mass/volume ] in Serum or Plasma 6.4-8.9 [facility] Protein [Mass/Vol] 7.0 g/dL Normal 6.4-8.9 [facility] Comment on above: Performed By: #### Vandana Cramer, KAREN #### [address] Protein [Mass/volume] in Uri ne by Test stripOrdered By: Jorge Calix on 03-12-2025 Protein (U) [Mass/Vol] 200 mg/dL High Negative [facility] Comment on above: Order Comment: Name Collection Type:: Other Performed By: #### G MICK #### Point of Care testing , Prothrombin time (PT)Ordered By: Jorge Calix on 03-12-2025 PT Coag (PPP) [Time] Prothrombin time (PT) High 9.0- 12.9 [facility] PT Coag (PPP) [Time] 19.3 s High 9.0-12.9 [facility] Comment on above: A hematocrit value g reater than 55% may lead to inaccurate results in coagulation testing. Patients having hematocrit values >55% require a special collection tube for coagulation studies. Please contact the laboratory at [phone] for redraw instructions. Result Comment: A he matocrit value greater than 55% may lead to inaccurate results in coagulation testing. Patients having hematocrit values >55% require a special collection tube for coagulation studies. Please contact the laboratory at [phone] for redraw instructions. Performed By: #### M Bela, BMP #### [facility] [address] [place] [address] RBC Auto (Bld) [#/Vol]Ordere d By: Jorge Calix on 03-12-2025 RBC (Bld) [#/Vol] Erythrocytes [#/volu me] in Blood by Automated count 3.60-5.00 [facility] Serum globulin measurement b y calculation (mass/volume)Ordered By: Jorge Calix on 03-12-2025 Globulin (S) [Mass/Vol] 4.0 g/dL [facility] Comment on above: Performed By: #### Vandana Cramer, BMP #### [address] Serum or plasma albumin/glob ulin mass ratioOrdered By: Jorge Calix on 03-12-2025 Albumin/Globulin [Mass ratio] Serum or plasma albumin/globulin mass ratio [facility] Albumin/Globulin [Mass ratio] 0.8 {ratio} Normal [facility] Comment on above: Performed By: #### M Bela, BMP #### [facility] [address] [place] [address] Serum or plasma anion gap de terminationOrdered By: Jorge Calix on 03-12-2025 Anion gap [Moles/Vol] Serum or plasma an ion gap determination 6.0-15.0 [facility] Anion gap [Moles/Vol] 12.0 mmol/L Normal 6.0-15.0 [facility] Comment on above: Performed By: #### Vandana Cramer, BMP #### [address] Serum or plasma non-glucuron idated bilirubin measurement (mass/volume)Ordered By: Jorge Calix on 03-12-2025 Bilirubin.indirect [Mass/Vol] Serum or plasma non-glucuronidated bilirubin measurement (mass/volume) [facility] Bilirubin.indirect [Mass/Vol] 0.4 mg/dL [facility] Sodium [Moles/volume] in Ser um or PlasmaOrdered By: Jorge Calix on 03-12-2025 Sodium [Moles/Vol] Sodium [Moles/volume ] in Serum or Plasma Low 136-145 [facility] Sodium [Moles/Vol] 134 mmol/L Low 136-145 [facility] Comment on above: Performed By: #### Vandana Cramer, BMP #### [address] Specific gravity Test strip (U) [Rel density]Ordered By: Jorge Calix on 03-12-2025 Specific gravity (U) [Rel density] Specific gravity of Urine by Test strip 1.001-1.030 [facility] Specific gravity (U) [Rel density] 1.012 1.001-1.030 [facility] Troponin I High Sensitivityo n 03-12-2025 Troponin I High Sensitivity 46 High 0-15 [facility] Comment on above: Result Comment: The Troponin units of report have been changed to meet the Chest Pain Accreditation requirement, element EC5.M1l2. Troponin units are changed from pg/ml to ng/L. Also, the decimal is removed and results are in whole numbers. PERFORMED BY: [place] [address] PATHOLOGIST [employer] PHONE INSTALLER MAY HYDE M.D. Performed By: #### Vandana Cramer, BMP #### [address] Troponin I.cardiac [Mass/vol ume] in Serum or Plasma by Detection limit <= 0.01 ng/Ordered By: Jorge Calix on 03-12-2025 Troponin I.cardiac DL <= 0.01 ng/mL [Mass/Vol] Troponin I.cardiac [Mass/volume] in Serum or Plasma by Detection limit <= 0.01 ng/ High [address] [place] [address] Troponin I.cardiac [Mass/vol ume] in Serum or Plasma by Detection limit <= 0.01 ng/mLOrdered By: Jorge Calix on 03-12-2025 Troponin I.cardiac DL <= 0.01 ng/mL [Mass/Vol] 46 ng/L [facility] [address] Comment on above: The Troponin units o f report have been changed to meet the Chest Pain Accreditation requirement, element EC5.M1l2. Troponin units are changed from pg/ml to ng/L. Also, the decimal is removed and results are in whole numbers. Urea nitrogen [Mass/volume] in Serum or PlasmaOrdered By: Jorge Calix on 03-12-2025 Urea nitrogen [Mass/Vol] Urea nitrogen [Mass/volume] in Serum or Plasma [address] Urea nitrogen [Mass/Vol] 41 mg/dL [address] Comment on above: Performed By: #### M , BMP #### [address] Urobilinogen Test strip (U) [Mass/Vol]Ordered By: Jorge Calix on 03-12-2025 Urobilinogen (U) [Mass/Vol] Urobilinogen [Mass/volume] in Urine by Test strip Normal [facility] Urobilinogen (U) [Mass/Vol] Normal mg/dL Normal [facility] WBC Auto (Bld) [#/Vol]Ordere d By: Jorge Calix on 03-12-2025 WBC (Bld) [#/Vol] Leukocytes [#/volume ] in Blood by Automated count 3.8-11.6 [facility] X-ray reportOrdered By: Kirit Langston on 03-12-2025 Study report [facility] Work Phone: XR chest 1V portableon 03-12 XR chest 1V portable [facility] [address] XRay Report Signed Patient: Joe Call MR#: [id number] 0 : 1945 Acct:[id number] Age/Sex: 79 / F ADM Date: 03/12/25 Loc: ER Room: Type: [facility] ER Attending Dr: Copies to: Jorge [...] Langston M.D. 03/12/2025 3:34 PM Dictation Location: [place] [address] Transcribed By: [facility] 03/12/25 1534 Dictated By: Vargas Langston MD 03/12/25 1532 Signed By: 03/12/25 1534 Normal [facility] pH Test strip (U)Ordered By: Jorge Calix on 03-12-2025 pH (U) pH of Urine by Test strip 5.0-9.0 [facility] pH of Urine by Test stripOrd ered By: Jorge Calix on 03-12-2025 pH (U) 7.0 [pH] Normal 5.0-9.0 [facility] Comment on above: Order Comment: Name Collection Type:: Other Performed By: #### G LULS #### Point of Care testing , Cholesterol in LDL Calc [Mas s/Vol]on 03-02-2025 Cholesterol in LDL [Mass/Vol] Cholesterol in LDL [Mass/volume] in Serum or Plasma by calculation [facility] Comment on above: <100 mg/dl [id number] 0-129 mg/dl NEAR OR ABOVE [id number] mg/dl BORDERLINE [id number] mg/dl HIGH>190 mg/dl VERY HIGH Cholesterol in LDL [Mass/Vol] 55.6 mg/dL [facility] Comment on above: <100 mg/dl [id number] 0-129 mg/dl NEAR OR ABOVE [id number] mg/dl BORDERLINE [id number] mg/dl HIGH>190 mg/dl VERY HIGH Cholesterol in VLDL Calc [Ma ss/Vol]on 03-02-2025 Cholesterol in VLDL [Mass/Vol] Cholesterol in VLDL [Mass/volume] in Serum or Plasma by calculation [facility] Cholesterol in VLDL [Mass/Vol] 24.4 mg/dL [facility] Erythrocyte distribution wid th Auto (RBC) [Ratio]on 03-02-2025 Erythrocyte distribution width (RBC) [Ratio] Erythrocyte distribution width [Ratio] by Automated count 11.0-15.0 [facility] Erythrocyte distribution width (RBC) [Ratio] 13.4 % 11.0-15.0 [facility] Estimated glomerular filtrat ion rate (GFR) non- Americanon 03-02-2025 GFR/1.73 sq M.predicted among non-blacks MDRD (S/P/Bld) [Vol rate/Area] Estimated glomerular filtration rate (GFR) non- Low >=60 mL/min/1.73 m 2 [facility] GFR/1.73 sq M.predicted among non-blacks MDRD (S/P/Bld) [Vol rate/Area] 27 mL/min/{1.73_m2} Low >=60 mL/min/1.73 m 2 [facility] Hematocrit Auto (Bld) [Volum e fraction]on 03-02-2025 Hematocrit (Bld) [Volume fraction] Hematocrit [Volume Fraction] of Blood by Automated count 36.0-48.0 [facility] Hematocrit (Bld) [Volume fraction] 38.7 % 36.0-48.0 [facility] Hemoglobin [Mass/volume] in Bloodon 03-02-2025 Hemoglobin (Bld) [Mass/Vol] Hemoglobin [Mass/volume] in Blood 12.0-16.0 [facility] Hemoglobin (Bld) [Mass/Vol] 12.9 g/dL 12.0-16.0 [facility] Iron binding capacity [Mass/ volume] in Serum or Plasmaon 04-21-2025 Iron binding capacity [Mass/Vol] Iron binding capacity [Mass/volume] in Serum or Plasma 250.0-450.0 [facility] Iron binding capacity [Mass/Vol] 278.0 ug/dL 250.0-450.0 [facility] Iron saturation [Mass Fracti on] in Serum or Plasmaon 03-02-2025 Iron saturation [Mass fraction] Iron saturation [Mass Fraction] in Serum or Plasma [facility] Iron saturation [Mass fraction] 22.3 % [facility] Laboratory - Chemistry and C hemistry - challengeon 03-02-2025 Albumin [Mass/Vol] 2.4 g/dL Low 3.4-5.0 [facility] Calcium [Mass/Vol] 8.1 mg/dL Low 8.5-10.1 [facility] Chloride [Moles/Vol] 96 mmol/L Low 98-107 [facility] Cholesterol [Mass/Vol] 136 mg/dL <=200 [facility] Cholesterol in HDL [Mass/Vol] 56 mg/dL 40-60 [facility] Comment on above: > or =60 mg/dl - LOW CARDIOVASCULAR RISK<40 mg/dl - HIGH CARDIOVASCULAR RISK CO2 [Moles/Vol] 31.2 mmol/L 21.0-32.0 [facility] Creatinine [Mass/Vol] 1.83 mg/dL High 0.55-1.02 [facility] Ferritin [Mass/Vol] 114.0 ng/mL 8.0-252.0 [facility] GFR/1.73 sq M.predicted MDRD (S/P/Bld) [Vol rate/Area] 32 mL/min/{1.73_m2} Low >=60 mL/min/1.73 m 2 [facility] Glucose [Mass/Vol] 337 mg/dL High 74-106 [facility] Iron [Mass/Vol] 62.0 ug/dL 50.0-170.0 [facility] Magnesium [Mass/Vol] 1.0 mg/dL Low 1.8-2.4 [facility] Natriuretic peptide B (Bld) [Mass/Vol] 4236.0 pg/mL Critically high <=1800.0 [facility] Comment on above: RESULTS CALLED TO AN BRYANNA ACUNA Potassium [Moles/Vol] 3.6 mmol/L 3.5-5.1 [facility] Sodium [Moles/Vol] 137 mmol/L 136-145 [facility] Triglyceride [Mass/Vol] 122 mg/dL <=150 [facility] Urate [Mass/Vol] 8.1 mg/dL High 2.6-6.0 [facility] Urea nitrogen [Mass/Vol] 53.0 mg/dL High 7.0-18.0 [facility] Urea nitrogen/Creatinine [Mass ratio] 29.0 mg/mg [facility] Bilirubin Ql (U) Negative NEGATIVE [facility] Glucose (U) [Mass/Vol] 250 mg/dL Abnormal NEGATIVE [facility] Ketones Ql (U) Negative NEGATIVE [facility] pH (U) 6.0 [pH] 5.0-9.0 [facility] Specific gravity (U) [Rel density] 1.020 1.005-1.025 [facility] Urobilinogen Qn (U) 0.2 {Meka'U}/dL 0.2-1.0 [facility] Laboratory - Specimen inform ationon 03-02-2025 Appearance (U) CLEAR CLEAR [facility] Color (U) LT. YELLOW YELLOW [facility] Laboratory - Urinalysison Leukocyte esterase Test strip Ql (U) Negative NEGATIVE [facility] Mucus Ql (Urine sed) TRACE Abnormal NONE SEEN [facility] Nitrite Ql (U) Negative NEGATIVE [facility] Protein (U) [Mass/Vol] 186.2 mg/dL High <=11.9 [facility] Protein Ql (U) >=300 mg/dL Abnormal NEG/TRACE [facility] Leukocytes [#/volume] correc gali for nucleated erythrocytes in Blood by Automated counon 03-02-2025 WBC corrected for nucl RBC Auto (Bld) [#/Vol] Leukocytes [#/volume] corrected for nucleated erythrocytes in Blood by Automated coun 4.0-11.0 [facility] WBC corrected for nucl RBC Auto (Bld) [#/Vol] 8.7 10 3/uL 4.0-11.0 [facility] MCH Auto (RBC) [Entitic mass ]on 03-02-2025 MCH (RBC) [Entitic mass] MCH [Entitic mass] by Automated count 26.7-34.0 [facility] MCH (RBC) [Entitic mass] 29.4 pg 26.7-34.0 [facility] MCHC Auto (RBC) [Mass/Vol]on 03-02-2025 MCHC (RBC) [Mass/Vol] MCHC [Mass/volume] by Automated count 29.9-35.2 [facility] MCHC (RBC) [Mass/Vol] 33.3 g/dL 29.9-35.2 [facility] MCV Auto (RBC) [Entitic vol] on 03-02-2025 MCV (RBC) [Entitic vol] MCV [Entitic volume] by Automated count 81.0-99.0 [facility] MCV (RBC) [Entitic vol] 88.2 fL 81.0-99.0 [facility] No Panel Informationon 03-02 25-Hydroxy Vitamin D Total 10.8 ng/mL [facility] Comment on above: <20 ng/mL Vit D defi cient20-<30 ng/mL Vit D vbksdscogmbx87-292 ng/mL Vit D sufficient>100 ng/mL Potential Toxicity Parathyroid Hormone (Intact) 57 pg/mL [facility] Comment on above: Performed at: - [place] [id number] Director: Dimitri Landis PhD, Phone: [phone] Phosphorus Level 4.9 mg/dL High 2.6-4.7 [facility] 57 pg/mL [facility] 10.8 ng/mL [facility] 114.0 ng/mL 8.0-252.0 [facility] 4236.0 pg/mL Critically high <=1800.0 [facility] 1.0 mg/dL Low 1.8-2.4 [facility] 2.4 g/dL Low 3.4-5.0 [facility] 4.9 mg/dL High 2.6-4.7 [facility] 8.1 mg/dL Low 8.5-10.1 [facility] 136 mg/dL <=200 [facility] 29.0 [facility] 62.0 ug/dL 50.0-170.0 [facility] 56 mg/dL 40-60 [facility] 53.0 mg/dL High 7.0-18.0 [facility] 122 mg/dL <=150 [facility] 96 mmol/L Low 98-107 [facility] 31.2 mmol/L 21.0-32.0 [facility] 1.83 mg/dL High 0.55-1.02 [facility] 32 Low >=60 mL/min/1.73 m 2 [facility] 337 mg/dL High 74-106 [facility] 3.6 mmol/L 3.5-5.1 [facility] 137 mmol/L 136-145 [facility] Urine Bacteria SMALL #/HPF Abnormal NONE SEEN [facility] Urine Occult Blood TRACE-I NEGATIVE [facility] Urine Other Casts NONE SEEN #/LPF NONE SEEN [facility] Urine Other Crystals None Seen #/HPF None Seen [facility] Urine Random Creatinine 26.93 mg/dL 20.00-300.0 0 [facility] Urine RBC 2-5 #/HPF Abnormal 0-2 [facility] Urine Squamous Epithelial Cells FEW #/LPF Abnormal NONE/RARE [facility] Urine WBC NONE SEEN #/HPF NONE SEEN [facility] 26.93 mg/dL 20.00-300.0 0 [facility] 186.2 mg/dL High <=11.9 [facility] Office Visiton 03-02-2025 Follow-up visit [id number] Joe Call 1945 F Date Provider Department Center 03/02/2025 [id number] LUNA Family History Problem Relation Age of Onset Heart disease Mother Heart attack Father Coronary artery disease Other Diabetes Other Polycystic kidney disease Other Family Status - Relation Status Age at Mother Father Sister Brother Other Level of Service:[address] [place] OFFICE/OUTPATIENT ESTABLISHED MOD MDM 30 MIN Reason for Visit and Comments: 5 week follow up with Labs [Other] [facility] Orders Onlyon 03-02-2025 Orders Only [id number] Joe Call 1945 F Date Provider Department Center 03/02/2025 [facility] Family History Problem Relation Age of Onset Heart disease Mother Heart attack Father Coronary artery disease Other Diabetes Other Polycystic kidney disease Other Family Status - Relation Status Age at Mother Father Sister Brother Other Normal [facility] Platelet mean volume Auto (B ld) [Entitic vol]on 03-02-2025 Platelet mean volume (Bld) [Entitic vol] Platelet mean volume [Entitic volume] in Blood by Automated count 9.5-13.5 [facility] Platelet mean volume (Bld) [Entitic vol] 11.7 fL 9.5-13.5 [facility] Platelets Auto (Bld) [#/Vol] on 03-02-2025 Platelets (Bld) [#/Vol] Platelets [#/volume] in Blood by Automated count 150-450 [facility] Platelets (Bld) [#/Vol] 150 10 3/uL 150-450 [facility] RBC Auto (Bld) [#/Vol]on RBC (Bld) [#/Vol] Erythrocytes [#/volu me] in Blood by Automated count 4.20-5.40 [facility] RBC (Bld) [#/Vol] 4.39 10 6/uL 4.20-5.40 [facility] Serum or plasma anion gap de terminationon 03-02-2025 Anion gap [Moles/Vol] Serum or plasma an ion gap determination [facility] Anion gap [Moles/Vol] 13.4 mmol/L [facility] Serum or plasma total choles terol/high density lipoprotein (HDL) cholesterol mass herminia 03-02-2025 Cholesterol.total/Chol esterol in HDL [Mass ratio] Serum or plasma total cholesterol/high density lipoprotein (HDL) cholesterol mass rat [facility] Comment on above: 3.3 - 4.4 LOW RISK4. 4 - 7.1 AVERAGE RISK7.1 - 11.0 MODERATE RISK>11.0 HIGH RISK Cholesterol.total/Chol esterol in HDL [Mass ratio] 2.4 {ratio} [facility] Comment on above: 3.3 - 4.4 LOW RISK4. 4 - 7.1 AVERAGE RISK7.1 - 11.0 MODERATE RISK>11.0 HIGH RISK Urine protein/creatinine rat ioon 03-02-2025 Protein/Creatinine (U) [Ratio] Urine protein/creatinine ratio [facility] Protein/Creatinine (U) [Ratio] 6.91 [facility] Yeast detection in urine sed iment by light microscopyon 03-02-2025 Yeast LM Ql (Urine sed) SEEN Abnormal NONE SEEN [facility] Office Visiton 01-28-2025 Follow-up visit [id number] Joe Call 1945 F Date Provider Department Center 01/28/2025 [id number] [facility]NA [facility] Family History Problem Relation Age of Onset Coronary artery disease Other Diabetes Other Polycystic kidney disease Other Family Status - Relation Status Age at Other Level of Service:33465 [place] OFFICE/OUTPATIENT ESTABLISHED MOD MDM 30 MIN Reason for Visit and Comments: Hypertension [349256] Congestive Heart Failure [127] - Discharged yesterday from [facility] for CHF. Discharge papers from [facility] do not have her on a diuretic. Patient believes she's taking furosemide 40mg every other day. Coronary Artery Disease [187] Atrial Fibrillation [80] - Denies lightheadedness/syncope and bleeding on Xarelto. Hyperlipidemia [182] - No lipids since last visit. Edema [[id number]] Shortness of Breath [431435] - Improving. Palpitations [959360] Fall [063057] - Fell a few days ago at home when she slipped on the carpet. [facility] Basophils Auto (Bld) [#/Vol] on 01-27-2025 Basophils (Bld) [#/Vol] Automated basophil count 0.0-0.1 [facility] Basophils/100 WBC Auto (Bld) on 01-27-2025 Basophils/100 WBC (Bld) Automated basophil % 0.2-2.0 [facility] Eosinophils/100 WBC Auto (Bl d)on 01-27-2025 Eosinophils/100 WBC (Bld) Automated eosinophil % 0.9-7.0 [facility] Erythrocyte distribution wid th Auto (RBC) [Ratio]on 01-27-2025 Erythrocyte distribution width (RBC) [Ratio] Erythrocyte distribution width [Ratio] by Automated count 11.0-15.0 [facility] Estimated glomerular filtrat ion rate (GFR) non- Americanon 01-27-2025 GFR/1.73 sq M.predicted among non-blacks MDRD (S/P/Bld) [Vol rate/Area] Estimated glomerular filtration rate (GFR) non- Low >=60 mL/min/1.73 m 2 [facility] Globulin Calc (S) [Mass/Vol] on 01-27-2025 Globulin (S) [Mass/Vol] Serum globulin measurement by calculation (mass/volume) [facility] Hematocrit Auto (Bld) [Volum e fraction]on 01-27-2025 Hematocrit (Bld) [Volume fraction] Hematocrit [Volume Fraction] of Blood by Automated count 36.0-48.0 [facility] Hemoglobin [Mass/volume] in Bloodon 01-27-2025 Hemoglobin (Bld) [Mass/Vol] Hemoglobin [Mass/volume] in Blood 12.0-16.0 [facility] Laboratory - Chemistry and C hemistry - challengeon 01-27-2025 Potassium [Moles/Vol] 3.8 mmol/L 3.5-5.1 [facility] Albumin [Mass/Vol] 2.1 g/dL Low 3.4-5.0 [facility] ALP [Catalytic activity/Vol] 79 U/L 46-116 [facility] ALT [Catalytic activity/Vol] 8 U/L Low 14-59 [facility] AST [Catalytic activity/Vol] 17 U/L 15-37 [facility] Bilirubin [Mass/Vol] 0.4 mg/dL 0.2-1.0 [facility] Calcium [Mass/Vol] 8.3 mg/dL Low 8.5-10.1 [facility] Chloride [Moles/Vol] 105 mmol/L 98-107 [facility] CO2 [Moles/Vol] 36.4 mmol/L High 21.0-32.0 [facility] Creatinine [Mass/Vol] 1.52 mg/dL High 0.55-1.02 [facility] GFR/1.73 sq M.predicted MDRD (S/P/Bld) [Vol rate/Area] 40 mL/min/{1.73_m2} Low >=60 mL/min/1.73 m 2 [facility] Glucose [Mass/Vol] 113 mg/dL High 74-106 [facility] Magnesium [Mass/Vol] 1.3 mg/dL Low 1.8-2.4 [facility] Protein [Mass/Vol] 6.1 g/dL Low 6.4-8.2 [facility] Sodium [Moles/Vol] 144 mmol/L 136-145 [facility] Urea nitrogen [Mass/Vol] 22.0 mg/dL High 7.0-18.0 [facility] Urea nitrogen/Creatinine [Mass ratio] 14.5 mg/mg [facility] Laboratory - Hematology and Cell countson 01-27-2025 Immature granulocytes/100 WBC (Bld) 0.2 % 0.0-0.5 [facility] Leukocytes [#/volume] correc gali for nucleated erythrocytes in Blood by Automated counon 01-27-2025 WBC corrected for nucl RBC Auto (Bld) [#/Vol] Leukocytes [#/volume] corrected for nucleated erythrocytes in Blood by Automated coun 4.0-11.0 [facility] Lymphocytes Auto (Bld) [#/Vo l]on 01-27-2025 Lymphocytes (Bld) [#/Vol] Lymphocytes [#/volume] in Blood by Automated count 1.2-3.8 [facility] Lymphocytes/100 WBC Auto (Bl d)on 01-27-2025 Lymphocytes/100 WBC (Bld) Lymphocytes/100 leukocytes in Blood by Automated count 20.5-60.0 [facility] MCH Auto (RBC) [Entitic mass ]on 01-27-2025 MCH (RBC) [Entitic mass] MCH [Entitic mass] by Automated count 26.7-34.0 [facility] MCHC Auto (RBC) [Mass/Vol]on 01-27-2025 MCHC (RBC) [Mass/Vol] MCHC [Mass/volume] by Automated count 29.9-35.2 [facility] MCV Auto (RBC) [Entitic vol] on 01-27-2025 MCV (RBC) [Entitic vol] MCV [Entitic volume] by Automated count 81.0-99.0 [facility] Monocytes Auto (Bld) [#/Vol] on 01-27-2025 Monocytes (Bld) [#/Vol] Automated blood monocyte count High 0.3-0.8 [facility] Monocytes/100 WBC Auto (Bld) on 01-27-2025 Monocytes/100 WBC (Bld) Automated monocyte % 1.7-12.0 [facility] Neutrophils Auto (Bld) [#/Vo l]on 01-27-2025 Neutrophils (Bld) [#/Vol] Neutrophils [#/volume] in Blood by Automated count 1.4-6.5 [facility] Neutrophils/100 WBC Auto (Bl d)on 01-27-2025 Neutrophils/100 WBC (Bld) Automated neutrophil % 43.0-75.0 [facility] No Panel Informationon 01-27 3.8 mmol/L 3.5-5.1 [facility] Eosinophils # (Auto) 0.2 10 3/uL 0.0-0.7 [facility] Immature Granulocyte # (Auto) 0.02 10 3/uL 0.00-0.03 [facility] 1.3 mg/dL Low 1.8-2.4 [facility] 0.2 10 3/uL 0.0-0.7 [facility] 2.1 g/dL Low 3.4-5.0 [facility] 79 U/L 46-116 [facility] 8 U/L Low 14-59 [facility] 17 U/L 15-37 [facility] 0.02 10 3/uL 0.00-0.03 [facility] 14.5 [facility] 0.2 % 0.0-0.5 [facility] 22.0 mg/dL High 7.0-18.0 [facility] 8.3 mg/dL Low 8.5-10.1 [facility] 105 mmol/L 98-107 [facility] 36.4 mmol/L High 21.0-32.0 [facility] 1.52 mg/dL High 0.55-1.02 [facility] 40 Low >=60 mL/min/1.73 m 2 [facility] 113 mg/dL High 74-106 [facility] 144 mmol/L 136-145 [facility] 0.4 mg/dL 0.2-1.0 [facility] 6.1 g/dL Low 6.4-8.2 [facility] Platelet mean volume Auto (B ld) [Entitic vol]on 01-27-2025 Platelet mean volume (Bld) [Entitic vol] Platelet mean volume [Entitic volume] in Blood by Automated count 9.5-13.5 [facility] Platelets Auto (Bld) [#/Vol] on 01-27-2025 Platelets (Bld) [#/Vol] Platelets [#/volume] in Blood by Automated count 150-450 [facility] RBC Auto (Bld) [#/Vol]on RBC (Bld) [#/Vol] Erythrocytes [#/volu me] in Blood by Automated count 4.20-5.40 [facility] Serum or plasma albumin/glob ulin mass ratioon 01-27-2025 Albumin/Globulin [Mass ratio] Serum or plasma albumin/globulin mass ratio [facility] Serum or plasma anion gap de terminationon 01-27-2025 Anion gap [Moles/Vol] Serum or plasma an ion gap determination [facility] Basophils Auto (Bld) [#/Vol] on 01-26-2025 Basophils (Bld) [#/Vol] Automated basophil count 0.0-0.1 [facility] Basophils/100 WBC Auto (Bld) on 01-26-2025 Basophils/100 WBC (Bld) Automated basophil % 0.2-2.0 [facility] Eosinophils/100 WBC Auto (Bl d)on 01-26-2025 Eosinophils/100 WBC (Bld) Automated eosinophil % 0.9-7.0 [facility] Erythrocyte distribution wid th Auto (RBC) [Ratio]on 01-26-2025 Erythrocyte distribution width (RBC) [Ratio] Erythrocyte distribution width [Ratio] by Automated count 11.0-15.0 [facility] Estimated glomerular filtrat ion rate (GFR) non- Americanon 01-26-2025 GFR/1.73 sq M.predicted among non-blacks MDRD (S/P/Bld) [Vol rate/Area] Estimated glomerular filtration rate (GFR) non- Low >=60 mL/min/1.73 m 2 [facility] Globulin Calc (S) [Mass/Vol] on 01-26-2025 Globulin (S) [Mass/Vol] Serum globulin measurement by calculation (mass/volume) [facility] Hematocrit Auto (Bld) [Volum e fraction]on 01-26-2025 Hematocrit (Bld) [Volume fraction] Hematocrit [Volume Fraction] of Blood by Automated count 36.0-48.0 [facility] Hemoglobin [Mass/volume] in Bloodon 01-26-2025 Hemoglobin (Bld) [Mass/Vol] Hemoglobin [Mass/volume] in Blood 12.0-16.0 [facility] Laboratory - Chemistry and C hemistry - challengeon 01-26-2025 Albumin [Mass/Vol] 1.9 g/dL Low 3.4-5.0 [facility] ALP [Catalytic activity/Vol] 77 U/L 46-116 [facility] ALT [Catalytic activity/Vol] 11 U/L Low 14-59 [facility] AST [Catalytic activity/Vol] 19 U/L 15-37 [facility] Bilirubin [Mass/Vol] 0.4 mg/dL 0.2-1.0 [facility] Calcium [Mass/Vol] 8.0 mg/dL Low 8.5-10.1 [facility] Chloride [Moles/Vol] 105 mmol/L 98-107 [facility] CO2 [Moles/Vol] 35.1 mmol/L High 21.0-32.0 [facility] Creatinine [Mass/Vol] 1.36 mg/dL High 0.55-1.02 [facility] GFR/1.73 sq M.predicted MDRD (S/P/Bld) [Vol rate/Area] 46 mL/min/{1.73_m2} Low >=60 mL/min/1.73 m 2 [facility] Glucose [Mass/Vol] 133 mg/dL High 74-106 [facility] Magnesium [Mass/Vol] 1.3 mg/dL Low 1.8-2.4 [facility] Potassium [Moles/Vol] 2.9 mmol/L Critically low 3.5-5.1 [facility] Comment on above: RESULTS CALLED TO JOSE MARTIN DODGE RN @BY Alla Venegas at 0635 Protein [Mass/Vol] 5.8 g/dL Low 6.4-8.2 [facility] Sodium [Moles/Vol] 145 mmol/L 136-145 [facility] Urea nitrogen [Mass/Vol] 21.0 mg/dL High 7.0-18.0 [facility] Urea nitrogen/Creatinine [Mass ratio] 15.4 mg/mg [facility] Laboratory - Hematology and Cell countson 01-26-2025 Immature granulocytes/100 WBC (Bld) 0.1 % 0.0-0.5 [facility] Leukocytes [#/volume] correc gali for nucleated erythrocytes in Blood by Automated counon 01-26-2025 WBC corrected for nucl RBC Auto (Bld) [#/Vol] Leukocytes [#/volume] corrected for nucleated erythrocytes in Blood by Automated coun 4.0-11.0 [facility] Lymphocytes Auto (Bld) [#/Vo l]on 01-26-2025 Lymphocytes (Bld) [#/Vol] Lymphocytes [#/volume] in Blood by Automated count 1.2-3.8 [facility] Lymphocytes/100 WBC Auto (Bl d)on 01-26-2025 Lymphocytes/100 WBC (Bld) Lymphocytes/100 leukocytes in Blood by Automated count Low 20.5-60.0 [facility] MCH Auto (RBC) [Entitic mass ]on 01-26-2025 MCH (RBC) [Entitic mass] MCH [Entitic mass] by Automated count 26.7-34.0 [facility] MCHC Auto (RBC) [Mass/Vol]on 01-26-2025 MCHC (RBC) [Mass/Vol] MCHC [Mass/volume] by Automated count 29.9-35.2 [facility] MCV Auto (RBC) [Entitic vol] on 01-26-2025 MCV (RBC) [Entitic vol] MCV [Entitic volume] by Automated count 81.0-99.0 [facility] Monocytes Auto (Bld) [#/Vol] on 01-26-2025 Monocytes (Bld) [#/Vol] Automated blood monocyte count 0.3-0.8 [facility] Monocytes/100 WBC Auto (Bld) on 01-26-2025 Monocytes/100 WBC (Bld) Automated monocyte % 1.7-12.0 [facility] Neutrophils Auto (Bld) [#/Vo l]on 01-26-2025 Neutrophils (Bld) [#/Vol] Neutrophils [#/volume] in Blood by Automated count 1.4-6.5 [facility] Neutrophils/100 WBC Auto (Bl d)on 01-26-2025 Neutrophils/100 WBC (Bld) Automated neutrophil % 43.0-75.0 [facility] No Panel Informationon 01-26 Eosinophils # (Auto) 0.1 10 3/uL 0.0-0.7 [facility] Immature Granulocyte # (Auto) 0.01 10 3/uL 0.00-0.03 [facility] Troponin I High Sensitivity 30.9 pg/mL 4.0-51.3 [facility] Comment on above: CUT-OFF POINTS HAVE [...] AND CLINICAL INFORMATION. 1.3 mg/dL Low 1.8-2.4 [facility] 30.9 pg/mL 4.0-51.3 [facility] 0.1 10 3/uL 0.0-0.7 [facility] 1.9 g/dL Low 3.4-5.0 [facility] 77 U/L 46-116 [facility] 11 U/L Low 14-59 [facility] 19 U/L 15-37 [facility] 0.01 10 3/uL 0.00-0.03 [facility] 15.4 [facility] 0.1 % 0.0-0.5 [facility] 21.0 mg/dL High 7.0-18.0 [facility] 8.0 mg/dL Low 8.5-10.1 [facility] 105 mmol/L 98-107 [facility] 35.1 mmol/L High 21.0-32.0 [facility] 1.36 mg/dL High 0.55-1.02 [facility] 46 Low >=60 mL/min/1.73 m 2 [facility] 133 mg/dL High 74-106 [facility] 2.9 mmol/L Critically low 3.5-5.1 [facility] 145 mmol/L 136-145 [facility] 0.4 mg/dL 0.2-1.0 [facility] 5.8 g/dL Low 6.4-8.2 [facility] Platelet mean volume Auto (B ld) [Entitic vol]on 01-26-2025 Platelet mean volume (Bld) [Entitic vol] Platelet mean volume [Entitic volume] in Blood by Automated count 9.5-13.5 [facility] Platelets Auto (Bld) [#/Vol] on 01-26-2025 Platelets (Bld) [#/Vol] Platelets [#/volume] in Blood by Automated count 150-450 [facility] RBC Auto (Bld) [#/Vol]on RBC (Bld) [#/Vol] Erythrocytes [#/volu me] in Blood by Automated count Low 4.20-5.40 [facility] Serum or plasma albumin/glob ulin mass ratioon 01-26-2025 Albumin/Globulin [Mass ratio] Serum or plasma albumin/globulin mass ratio [facility] Serum or plasma anion gap de terminationon 01-26-2025 Anion gap [Moles/Vol] Serum or plasma an ion gap determination [facility] Basophils Auto (Bld) [#/Vol] on 01-25-2025 Basophils (Bld) [#/Vol] Automated basophil count 0.0-0.1 [facility] Basophils/100 WBC Auto (Bld) on 01-25-2025 Basophils/100 WBC (Bld) Automated basophil % 0.2-2.0 [facility] Eosinophils/100 WBC Auto (Bl d)on 01-25-2025 Eosinophils/100 WBC (Bld) Automated eosinophil % 0.9-7.0 [facility] Erythrocyte distribution wid th Auto (RBC) [Ratio]on 01-25-2025 Erythrocyte distribution width (RBC) [Ratio] Erythrocyte distribution width [Ratio] by Automated count 11.0-15.0 [facility] Estimated glomerular filtrat ion rate (GFR) non- Americanon 01-25-2025 GFR/1.73 sq M.predicted among non-blacks MDRD (S/P/Bld) [Vol rate/Area] Estimated glomerular filtration rate (GFR) non- Low >=60 mL/min/1.73 m 2 [facility] Hematocrit Auto (Bld) [Volum e fraction]on 01-25-2025 Hematocrit (Bld) [Volume fraction] Hematocrit [Volume Fraction] of Blood by Automated count 36.0-48.0 [facility] Hemoglobin [Mass/volume] in Bloodon 01-25-2025 Hemoglobin (Bld) [Mass/Vol] Hemoglobin [Mass/volume] in Blood 12.0-16.0 [facility] Laboratory - Chemistry and C hemistry - challengeon 01-25-2025 Potassium [Moles/Vol] 3.1 mmol/L Low 3.5-5.1 [facility] Free T4 [Mass/Vol] 1.65 ng/dL High 0.76-1.46 [facility] Magnesium [Mass/Vol] 1.2 mg/dL Low 1.8-2.4 [facility] TSH Qn 6.107 m[IU]/L High 0.358-3.740 [facility] Calcium [Mass/Vol] 8.1 mg/dL Low 8.5-10.1 [facility] Chloride [Moles/Vol] 104 mmol/L 98-107 [facility] CO2 [Moles/Vol] 34.6 mmol/L High 21.0-32.0 [facility] Creatinine [Mass/Vol] 1.49 mg/dL High 0.55-1.02 [facility] GFR/1.73 sq M.predicted MDRD (S/P/Bld) [Vol rate/Area] 41 mL/min/{1.73_m2} Low >=60 mL/min/1.73 m 2 [facility] Glucose [Mass/Vol] 121 mg/dL High 74-106 [facility] Natriuretic peptide B (Bld) [Mass/Vol] 7089.0 pg/mL Critically high <=1800.0 [facility] Comment on above: RESULTS CALLED TO RENETTA Hogan RN @BY Andrea Long [place] at 0458 Sodium [Moles/Vol] 144 mmol/L 136-145 [facility] Urea nitrogen [Mass/Vol] 22.0 mg/dL High 7.0-18.0 [facility] Urea nitrogen/Creatinine [Mass ratio] 14.8 mg/mg [facility] Laboratory - Hematology and Cell countson 01-25-2025 Immature granulocytes/100 WBC (Bld) 0.4 % 0.0-0.5 [facility] Leukocytes [#/volume] correc gali for nucleated erythrocytes in Blood by Automated counon 01-25-2025 WBC corrected for nucl RBC Auto (Bld) [#/Vol] Leukocytes [#/volume] corrected for nucleated erythrocytes in Blood by Automated coun 4.0-11.0 [facility] Lymphocytes Auto (Bld) [#/Vo l]on 01-25-2025 Lymphocytes (Bld) [#/Vol] Lymphocytes [#/volume] in Blood by Automated count 1.2-3.8 [facility] Lymphocytes/100 WBC Auto (Bl d)on 01-25-2025 Lymphocytes/100 WBC (Bld) Lymphocytes/100 leukocytes in Blood by Automated count Low 20.5-60.0 [facility] MCH Auto (RBC) [Entitic mass ]on 01-25-2025 MCH (RBC) [Entitic mass] MCH [Entitic mass] by Automated count 26.7-34.0 [facility] MCHC Auto (RBC) [Mass/Vol]on 01-25-2025 MCHC (RBC) [Mass/Vol] MCHC [Mass/volume] by Automated count 29.9-35.2 [facility] MCV Auto (RBC) [Entitic vol] on 01-25-2025 MCV (RBC) [Entitic vol] MCV [Entitic volume] by Automated count 81.0-99.0 [facility] Monocytes Auto (Bld) [#/Vol] on 01-25-2025 Monocytes (Bld) [#/Vol] Automated blood monocyte count 0.3-0.8 [facility] Monocytes/100 WBC Auto (Bld) on 01-25-2025 Monocytes/100 WBC (Bld) Automated monocyte % 1.7-12.0 [facility] Neutrophils Auto (Bld) [#/Vo l]on 01-25-2025 Neutrophils (Bld) [#/Vol] Neutrophils [#/volume] in Blood by Automated count 1.4-6.5 [facility] Neutrophils/100 WBC Auto (Bl d)on 01-25-2025 Neutrophils/100 WBC (Bld) Automated neutrophil % 43.0-75.0 [facility] No Panel Informationon 01-25 3.1 mmol/L Low 3.5-5.1 [facility] Clostridium difficile (PCR)(LAB) Negative [facility] Negative [facility] Troponin I High Sensitivity 28.4 pg/mL 4.0-51.3 [facility] Comment on above: CUT-OFF POINTS HAVE [...] AND CLINICAL INFORMATION. 1.65 ng/dL High 0.76-1.46 [facility] 6.107 u[iU]/mL High 0.358-3.740 [facility] 28.4 pg/mL 4.0-51.3 [facility] 1.2 mg/dL Low 1.8-2.4 [facility] Eosinophils # (Auto) 0.1 10 3/uL 0.0-0.7 [facility] Immature Granulocyte # (Auto) 0.03 10 3/uL 0.00-0.03 [facility] 7089.0 pg/mL Critically high <=1800.0 [facility] 14.8 [facility] 22.0 mg/dL High 7.0-18.0 [facility] 0.1 10 3/uL 0.0-0.7 [facility] 8.1 mg/dL Low 8.5-10.1 [facility] 104 mmol/L 98-107 [facility] 34.6 mmol/L High 21.0-32.0 [facility] 1.49 mg/dL High 0.55-1.02 [facility] 0.03 10 3/uL 0.00-0.03 [facility] 41 Low >=60 mL/min/1.73 m 2 [facility] 0.4 % 0.0-0.5 [facility] 121 mg/dL High 74-106 [facility] 144 mmol/L 136-145 [facility] Platelet mean volume Auto (B ld) [Entitic vol]on 01-25-2025 Platelet mean volume (Bld) [Entitic vol] Platelet mean volume [Entitic volume] in Blood by Automated count 9.5-13.5 [facility] Platelets Auto (Bld) [#/Vol] on 01-25-2025 Platelets (Bld) [#/Vol] Platelets [#/volume] in Blood by Automated count 150-450 [facility] RBC Auto (Bld) [#/Vol]on RBC (Bld) [#/Vol] Erythrocytes [#/volu me] in Blood by Automated count Low 4.20-5.40 [facility] Serum or plasma anion gap de terminationon 01-25-2025 Anion gap [Moles/Vol] Serum or plasma an ion gap determination [facility] Laboratory - Chemistry and C hemistry - challengeon 01-21-2025 Bilirubin Ql (U) ++ [facility] Glucose (U) [Mass/Vol] [facility] Ketones Ql (U) Negative [facility] pH (U) 6.0 [pH] [facility] Specific gravity (U) [Rel density] 1.010 [facility] Urobilinogen (U) [Mass/Vol] 0.2 mg/dL [facility] Laboratory - Specimen inform ationon 01-21-2025 Appearance (U) cloudy [facility] Color (U) darkyellow [facility] Laboratory - Urinalysison Leukocyte esterase Test strip Ql (U) Negative [facility] Nitrite Ql (U) Negative [facility] Protein Ql (U) ++++ [facility] No Panel Informationon 01-21 Urine Occult Blood 5-10 [facility] darkyellow [facility] cloudy [facility] 1.010 [facility] 6.0 [facility] Negative [facility] ++++ [facility] + [facility] 0.2 [facility] ++ [facility] 5-10 [facility] Basophils Auto (Bld) [#/Vol] on 12-04-2024 Basophils (Bld) [#/Vol] Automated basophil count 0.0-0.1 [facility] Basophils/100 WBC Auto (Bld) on 12-04-2024 Basophils/100 WBC (Bld) Automated basophil % 0.2-2.0 [facility] Eosinophils/100 WBC Auto (Bl d)on 12-04-2024 Eosinophils/100 WBC (Bld) Automated eosinophil % 0.9-7.0 [facility] Erythrocyte distribution wid th Auto (RBC) [Ratio]on 12-04-2024 Erythrocyte distribution width (RBC) [Ratio] Erythrocyte distribution width [Ratio] by Automated count 11.0-15.0 [facility] Estimated glomerular filtrat ion rate (GFR) non- Americanon 12-04-2024 GFR/1.73 sq M.predicted among non-blacks MDRD (S/P/Bld) [Vol rate/Area] Estimated glomerular filtration rate (GFR) non- Low >=60 mL/min/1.73 m 2 [facility] Globulin Calc (S) [Mass/Vol] on 12-04-2024 Globulin (S) [Mass/Vol] Serum globulin measurement by calculation (mass/volume) [facility] Hematocrit Auto (Bld) [Volum e fraction]on 12-04-2024 Hematocrit (Bld) [Volume fraction] Hematocrit [Volume Fraction] of Blood by Automated count 36.0-48.0 [facility] Hemoglobin [Mass/volume] in Bloodon 12-04-2024 Hemoglobin (Bld) [Mass/Vol] Hemoglobin [Mass/volume] in Blood Low 12.0-16.0 [facility] INR in Platelet poor plasma by Coagulation assayon 12-04-2024 INR Coag (PPP) [Relative time] INR in Platelet poor plasma by Coagulation assay [facility] Comment on above: DESIRED INR:2.0-3.0 CONDITIONS NOT LISTED BELOW2.5-3.5 FOR PROSTHETIC HEART VALVE REPLACEMENT2.5-3.5 RECURRENT THROMBOSIS Laboratory - Chemistry and C hemistry - challengeon 12-04-2024 Albumin [Mass/Vol] 2.7 g/dL Low 3.4-5.0 [facility] ALP [Catalytic activity/Vol] 111 U/L 46-116 [facility] ALT [Catalytic activity/Vol] 19 U/L 14-59 [facility] AST [Catalytic activity/Vol] 16 U/L 15-37 [facility] Bilirubin [Mass/Vol] 0.6 mg/dL 0.2-1.0 [facility] Calcium [Mass/Vol] 8.7 mg/dL 8.5-10.1 [facility] Chloride [Moles/Vol] 101 mmol/L 98-107 [facility] CO2 [Moles/Vol] 29.9 mmol/L 21.0-32.0 [facility] Creatinine [Mass/Vol] 1.24 mg/dL High 0.55-1.02 [facility] GFR/1.73 sq M.predicted MDRD (S/P/Bld) [Vol rate/Area] 51 mL/min/{1.73_m2} Low >=60 mL/min/1.73 m 2 [facility] Glucose [Mass/Vol] 310 mg/dL High 74-106 [facility] Natriuretic peptide B (Bld) [Mass/Vol] 3884.0 pg/mL Critically high <=1800.0 [facility] Comment on above: RESULTS CALLED TO AMILCAR RANGEL RN Potassium [Moles/Vol] 4.3 mmol/L 3.5-5.1 [facility] Protein [Mass/Vol] 7.0 g/dL 6.4-8.2 [facility] Sodium [Moles/Vol] 138 mmol/L 136-145 [facility] Urea nitrogen [Mass/Vol] 28.0 mg/dL High 7.0-18.0 [facility] Urea nitrogen/Creatinine [Mass ratio] 22.6 mg/mg [facility] Laboratory - Hematology and Cell countson 12-04-2024 Immature granulocytes/100 WBC (Bld) 0.2 % 0.0-0.5 [facility] Leukocytes [#/volume] correc gali for nucleated erythrocytes in Blood by Automated counon 12-04-2024 WBC corrected for nucl RBC Auto (Bld) [#/Vol] Leukocytes [#/volume] corrected for nucleated erythrocytes in Blood by Automated coun 4.0-11.0 [facility] Lymphocytes Auto (Bld) [#/Vo l]on 12-04-2024 Lymphocytes (Bld) [#/Vol] Lymphocytes [#/volume] in Blood by Automated count 1.2-3.8 [facility] Lymphocytes/100 WBC Auto (Bl d)on 12-04-2024 Lymphocytes/100 WBC (Bld) Lymphocytes/100 leukocytes in Blood by Automated count Low 20.5-60.0 [facility] MCH Auto (RBC) [Entitic mass ]on 12-04-2024 MCH (RBC) [Entitic mass] MCH [Entitic mass] by Automated count 26.7-34.0 [facility] MCHC Auto (RBC) [Mass/Vol]on 12-04-2024 MCHC (RBC) [Mass/Vol] MCHC [Mass/volume] by Automated count 29.9-35.2 [facility] MCV Auto (RBC) [Entitic vol] on 12-04-2024 MCV (RBC) [Entitic vol] MCV [Entitic volume] by Automated count 81.0-99.0 [facility] Monocytes Auto (Bld) [#/Vol] on 12-04-2024 Monocytes (Bld) [#/Vol] Automated blood monocyte count 0.3-0.8 [facility] Monocytes/100 WBC Auto (Bld) on 12-04-2024 Monocytes/100 WBC (Bld) Automated monocyte % 1.7-12.0 [facility] Neutrophils Auto (Bld) [#/Vo l]on 12-04-2024 Neutrophils (Bld) [#/Vol] Neutrophils [#/volume] in Blood by Automated count 1.4-6.5 [facility] Neutrophils/100 WBC Auto (Bl d)on 12-04-2024 Neutrophils/100 WBC (Bld) Automated neutrophil % 43.0-75.0 [facility] No Panel Informationon 12-04 Eosinophils # (Auto) 0.1 10 3/uL 0.0-0.7 [facility] Immature Granulocyte # (Auto) 0.02 10 3/uL 0.00-0.03 [facility] Troponin I High Sensitivity 19.6 pg/mL 4.0-51.3 [facility] Comment on above: CUT-OFF POINTS HAVE [...] volume] in Blood by Automated count 9.5-13.5 [facility] Platelets Auto (Bld) [#/Vol] on 12-04-2024 Platelets (Bld) [#/Vol] Platelets [#/volume] in Blood by Automated count 150-450 [facility] Prothrombin time (PT)on 11-13 PT Coag (PPP) [Time] Prothrombin time (PT) High 9.0- 11.6 [facility] RBC Auto (Bld) [#/Vol]on RBC (Bld) [#/Vol] Erythrocytes [#/volu me] in Blood by Automated count Low 4.20-5.40 [facility] Serum or plasma albumin/glob ulin mass ratioon 12-04-2024 Albumin/Globulin [Mass ratio] Serum or plasma albumin/globulin mass ratio [facility] Serum or plasma anion gap de terminationon 12-04-2024 Anion gap [Moles/Vol] Serum or plasma an ion gap determination [facility] Office Visiton 12-02-2024 Follow-up visit [id number] Joe Call 1945 F Date Provider Department Center 12/02/2024 [id number]-EETPOGSABRINA LUNA LOVE Bruno Family History Problem Relation Age of Onset Coronary artery disease Other Diabetes Other Polycystic kidney disease Other Family Status - Relation Status Age at Other Level of Service:34598 [place] OFFICE/OUTPATIENT ESTABLISHED MOD MDM 30 MIN Reason for Visit and Comments: Atrial Fibrillation [80] Congestive Heart Failure [127] - Had BMP 3 weeks ago. Taking lasix PRN. Hypertension [762806] Bradycardia [949872] Normal [facility] 36on 11-18-2024 36 Regarding lab result s from 11/03/2024: MD Brooke Sawyer MA Creatinine appears to be better. Patient's made aware. Normal [facility] Ambulatory Visit Summaryon 0 11-13-2024 Ambulatory [...] FRANCHESCA PERAZA PA-C Where: [facility] [address] [address]- 2024 11:20 AM EST With: FRANCHESCA PERAZA PA-C Where: [facility] [address] [address]- Medications What How Much When Why Instructions [...] for your care. Normal [facility] Estimated glomerular filtrat ion rate (GFR) non- Americanon 11-10-2024 GFR/1.73 sq M.predicted among non-blacks MDRD (S/P/Bld) [Vol rate/Area] Estimated glomerular filtration rate (GFR) non- Low >=60 mL/min/1.73 m 2 [facility] Laboratory - Chemistry and C hemistry - challengeon 11-10-2024 Albumin [Mass/Vol] 3.0 g/dL Low 3.4-5.0 [facility] Calcium [Mass/Vol] 8.5 mg/dL 8.5-10.1 [facility] Chloride [Moles/Vol] 99 mmol/L 98-107 [facility] CO2 [Moles/Vol] 26.2 mmol/L 21.0-32.0 [facility] Creatinine [Mass/Vol] 2.00 mg/dL High 0.55-1.02 [facility] GFR/1.73 sq M.predicted MDRD (S/P/Bld) [Vol rate/Area] 29 mL/min/{1.73_m2} Low >=60 mL/min/1.73 m 2 [facility] Glucose [Mass/Vol] 424 mg/dL High 74-106 [facility] Potassium [Moles/Vol] 4.5 mmol/L 3.5-5.1 [facility] Sodium [Moles/Vol] 136 mmol/L 136-145 [facility] Urea nitrogen [Mass/Vol] 58.0 mg/dL High 7.0-18.0 [facility] Urea nitrogen/Creatinine [Mass ratio] 29.0 mg/mg [facility] No Panel Informationon 11-10 Phosphorus Level 3.6 mg/dL 2.6-4.7 [facility] Serum or plasma anion gap de terminationon 11-10-2024 Anion gap [Moles/Vol] Serum or plasma an ion gap determination [facility] Urology Office/Clinic Noteon 11-04-2024 Urology Office/Clinic Note Urology Office/Clinic Note Chief Complaint Hospital follow up HPI Staff Pt. did see Dr. Gallardo about 20 years ago Admitted [facility] 10/16 after going to ER for weakness/SOB [...] note of the bladder scan anywhere on [facility] system or output volume once peacock placed). [...] it well. Follows w nephrology for CKD. [employer] 10/25/24 1.31 compared to 3.06 on 10/20/24 [...] E&M of New Patient High 60-74 Min 81386 2. CKD (chronic kidney disease) (N18.9: Chronic kidney disease, unspecified) Follows w Dr Rapp [employer] 1.31 on day of dc (10/25/24) Most recent labs 11/03/24 - BUN 34 [employer] 1.86 GFR 26 Pretty variable all year. (Results scanned into documents) Will repeat in 1 week after peacock removal. Sees Dr Rapp either 11/10 or 11/11. Ordered: E&M of New Patient High 60-74 Min 12676 Renal Function Panel 3. Stress incontinence (N39.3: Stress incontinence (female) (male)) At baseline. Typically when stands from seated position or coughing. 2-4 pads per day. Reassess baseline sx at f/u in 4-6 wks. Ordered: E&M of New Patient High 60-74 Min 25340 Total time spent reviewing previous notes/results/external documents, preparing the chart, conducting the encounter with the patient and family, ordering tests/medications, and documenting the encounter was 60 minutes. Follow-up With When Contact Information SYDNIE HASSAN Within 6 weeks [address] [place] [address] Business (1) Additional Instructions: Patient [...] content not included)... Normal [facility] Comment on above: Result Comment: Elec tronically Signed By: FRANCHESCA PERAZA PA-C\Date and Time Signed: 11/04/24 11:13 EST Estimated glomerular filtrat ion rate (GFR) non- Americanon 11-03-2024 GFR/1.73 sq M.predicted among non-blacks MDRD (S/P/Bld) [Vol rate/Area] Estimated glomerular filtration rate (GFR) non- Low >=60 mL/min/1.73 m 2 [facility] Laboratory - Chemistry and C hemistry - challengeon 11-03-2024 Calcium [Mass/Vol] 8.8 mg/dL 8.5-10.1 [facility] Chloride [Moles/Vol] 99 mmol/L 98-107 [facility] CO2 [Moles/Vol] 23.1 mmol/L 21.0-32.0 [facility] Creatinine [Mass/Vol] 1.86 mg/dL High 0.55-1.02 [facility] GFR/1.73 sq M.predicted MDRD (S/P/Bld) [Vol rate/Area] 32 mL/min/{1.73_m2} Low >=60 mL/min/1.73 m 2 [facility] Glucose [Mass/Vol] 367 mg/dL High 74-106 [facility] Potassium [Moles/Vol] 4.7 mmol/L 3.5-5.1 [facility] Sodium [Moles/Vol] 134 mmol/L Low 136-145 [facility] Urea nitrogen [Mass/Vol] 34.0 mg/dL High 7.0-18.0 [facility] Urea nitrogen/Creatinine [Mass ratio] 18.3 mg/mg [facility] Serum or plasma anion gap de terminationon 11-03-2024 Anion gap [Moles/Vol] Serum or plasma an ion gap determination [facility] Office Visiton 10-31-2024 Follow-up visit [id number] Joe Call 1945 F Date Provider Department Center 10/31/2024 [id number]-[id number] LUNA [facility] Family History Problem Relation Age of Onset Coronary artery disease Other Diabetes Other Polycystic kidney disease Other Family Status - Relation Status Age at Other Level of Service:23558 [place] OFFICE/OUTPATIENT ESTABLISHED MOD MDM 30 MIN Normal [facility] B-Type Natriuretic Peptideon 10-25-2024 Natriuretic peptide B (Bld) [Mass/Vol] 455.0 pg/mL High 5-100 [facility] Comment on above: Result Comment: PERF ORMED BY: [facility] [address] [place] [address] PATHOLOGIST AUTO PHONE INSTALLER MAY HYDE M.D. Performed By: #### G LULS #### Point of Care testing , Basic Metabolic Panelon 10-12 Anion gap [Moles/Vol] 13.0 mmol/L Normal 6.0-15.0 e [facility] Comment on above: Performed By: #### G LULS #### Point of Care testing , Calcium [Mass/Vol] 8.6 mg/dL Normal 8.6-10.3 [facility] Comment on above: Performed By: #### G LULS #### Point of Care testing , Chloride [Moles/Vol] 101 mmol/L Normal 98-107 [facility] Comment on above: Performed By: #### G LULS #### Point of Care testing , CO2 [Moles/Vol] 23.8 mmol/L Normal 21.0-31.0 [facility] Comment on above: Performed By: #### G LULS #### Point of Care testing , Creatinine [Mass/Vol] 1.31 mg/dL High 0.60-1.20 [facility] Comment on above: Performed By: #### G LULS #### Point of Care testing , Creatinine Clr Calc Pharmacy 46.58 Normal [facility] Comment on above: Result Comment: PERF ORMED BY: [facility] [address] [place] [address] PATHOLOGIST AUTO PHONE INSTALLER MAY HYDE M.D. Performed By: #### G LULS #### Point of Care testing , Estimated GFR 41.704 mL/Min Normal [facility] Comment on above: Performed By: #### G LULS #### Point of Care testing , Glucose [Mass/Vol] 232 mg/dL High 70-100 [facility] Comment on above: Result Comment: [place] Glucose Reference Range is dependent on time and content of last meal. Glucose of more than 200 mg/dL in a nonstressed, ambulatory subject supports the diagnosis of Diabetes Mellitus. ADA recommended reference range Performed By: #### G LULS #### Point of Care testing , Potassium [Moles/Vol] 4.8 mmol/L Normal 3.5-5.1 [facility] Comment on above: Performed By: #### G LULS #### Point of Care testing , Sodium [Moles/Vol] 133 mmol/L Low 136-145 [facility] Comment on above: Performed By: #### G LULS #### Point of Care testing , Urea nitrogen [Mass/Vol] 39 mg/dL High 7-25 [facility] Comment on above: Performed By: #### G LULS #### Point of Care testing , Basophils Auto (Bld) [#/Vol] Ordered By: Daniele Jane on 10-25-2024 Basophils (Bld) [#/Vol] Automated basophil count 0.0-0.2 [facility] Basophils/100 WBC Auto (Bld) Ordered By: Daniele Jane on 10-25-2024 Basophils/100 WBC (Bld) Automated basophil % . [facility] COVID CepheidOrdered By: Trino Jane on 10-25-2024 SARS-CoV-2 (COVID-19) Ab IA Ql COVID Cepheid Abnormal Negative [facility] Comment on above: This is a [...] or Cepheid Disclaimer revoked sooner. PERFORMED BY: [facility] [address] [place] [address] PATHOLOGIST AUTO PHONE INSTALLER MAY HYDE M.D. Normal [facility] Comment on above: Performed By: #### C OVID19 FLU RSV, CEPHEID POS #### [facility] [address] [place] [address] [facility] Calcium [Mass/volume] in Ser um or PlasmaOrdered By: Daniele Jane on 10-25-2024 Calcium [Mass/Vol] Calcium [Mass/volume ] in Serum or Plasma 8.6-10.3 [facility] Carbon dioxide, total [Moles /volume] in Serum or PlasmaOrdered By: Daniele Jane on 10-25-2024 CO2 [Moles/Vol] Carbon dioxide, tota l [Moles/volume] in Serum or Plasma 21.0-31.0 [facility] Cepheid COVID PCR Positiveon 10-25-2024 SARS-CoV-2 (COVID-19) RNA FERN+probe Ql (Unsp spec) Positive Critically abnormal Negative [facility] Comment on above: Result Comment: This is a duplicate Cepheid Xpert Xpress CoV-2/Flu/RSV Plus RNA by RT-PCR result to be used for statistical tracking purpose only. PERFORMED BY: [place] [address] PATHOLOGIST AUTO PHONE INSTALLER MAY HYDE M.D. Performed By: #### C OVID19 FLU RSV, CEPHEID POS #### [facility] [address] Chloride [Moles/volume] in S oziel or PlasmaOrdered By: Daniele Jane on 10-25-2024 Chloride [Moles/Vol] Chloride [Moles/vol ume] in Serum or Plasma 98-107 [facility] Complete Blood Count Auto Di ffon 10-25-2024 Basophils (Bld) [#/Vol] 0.1 10*3/uL Normal 0.0-0.2 [facility] Comment on above: Result Comment: PERF ORMED BY: [facility] [address] [place] [address] PATHOLOGIST AUTO PHONE INSTALLER MAY HYDE M.D. Performed By: #### G LULS #### Point of Care testing , Basophils/100 WBC (Bld) 0.9 % Normal . [facility] Comment on above: Performed By: #### G LULS #### Point of Care testing , Eosinophils (Bld) [#/Vol] 0.1 10*3/uL Normal 0.0-0.45 [facility] Comment on above: Performed By: #### G LULS #### Point of Care testing , Eosinophils/100 WBC (Bld) 1.5 % Normal . [facility] Comment on above: Performed By: #### G LULS #### Point of Care testing , Erythrocyte distribution width (RBC) [Ratio] 15.3 % Normal 11.9-15.3 [facility] Comment on above: Performed By: #### G LULS #### Point of Care testing , Hematocrit (Bld) [Volume fraction] 36.2 % Normal 34.0-46.4 [facility] Comment on above: Performed By: #### G LULS #### Point of Care testing , Hemoglobin (Bld) [Mass/Vol] 12.2 g/dL Normal 11.8-15.4 [facility] Comment on above: Performed By: #### G LULS #### Point of Care testing , Lymphocytes (Bld) [#/Vol] 0.8 10*3/uL Low 1.00-4.8 [facility] Comment on above: Performed By: #### G LULS #### Point of Care testing , Lymphocytes/100 WBC (Bld) 9.8 % Normal . [facility] Comment on above: Performed By: #### G LULS #### Point of Care testing , MCH (RBC) [Entitic mass] 29.5 pg Normal 24.7-34.3 [facility] Comment on above: Performed By: #### G LULS #### Point of Care testing , MCV (RBC) [Entitic vol] 87.6 fL Normal 80-100 [facility] Comment on above: Performed By: #### G LULS #### Point of Care testing , Mean Corpuscular HGB Conc 33.7 g/dL Normal 32.0-35.0 [facility] Comment on above: Performed By: #### G LULS #### Point of Care testing , Monocytes (Bld) [#/Vol] 0.8 10*3/uL Normal 0.0-0.8 [facility] Comment on above: Performed By: #### G LULS #### Point of Care testing , Monocytes/100 WBC (Bld) 25.33 % High 0.00-20.00 [facility] Comment on above: Result Comment: For adults in ED, MDW > 20.0 may be associated with a higher risk of sepsis during the first 12 hrs of hospital admission Performed By: #### G LULS #### Point of Care testing , Monocytes/100 WBC (Bld) 10.7 % Normal . [facility] Comment on above: Performed By: #### G LULS #### Point of Care testing , Neutrophils (Bld) [#/Vol] 6.1 10*3/uL Normal 1.8-7.7 [facility] Comment on above: Performed By: #### G LULS #### Point of Care testing , Neutrophils/100 WBC (Bld) 77.1 % Normal . [facility] Comment on above: Performed By: #### G LULS #### Point of Care testing , NRBC% 0.1 /100{WBC} Normal 0-0.5 [facility] Comment on above: Performed By: #### G LULS #### Point of Care testing , Platelet mean volume (Bld) [Entitic vol] 9.0 fL Normal 6.3-10.7 [facility] Comment on above: Performed By: #### G LULS #### Point of Care testing , Platelets (Bld) [#/Vol] 142 10*3/uL Low 150-450 [facility] Comment on above: Performed By: #### G LULS #### Point of Care testing , RBC (Bld) [#/Vol] 4.13 10*6/uL Normal 3.60-5.00 [facility] Comment on above: Performed By: #### G LULS #### Point of Care testing , WBC (Bld) [#/Vol] 7.9 10*3/uL Normal 3.8-11.6 [facility] Comment on above: Performed By: #### G LULS #### Point of Care testing , Creatinine [Mass/volume] in Serum or PlasmaOrdered By: Daniele Jane on 10-25-2024 Creatinine [Mass/Vol] Creatinine [Mass/v olume] in Serum or Plasma High 0.60-1.20 [facility] ECG 12 lead ECGon 10-25-2024 ECG 12 lead ECG [facility] [address] Electrocardiograph Report Signed Patient: Joe Call MR#: [id number] 0 : 1945 Acct:[id number] Age/Sex: 79 / F ADM Date: 10/25/24 Loc: ER Room: Type: [facility] ER Attending Dr: Ordering Provider: Daniele Jane [...] sinus arrhythmia Confirmed by Daniele Jane DO ([id number]) on 10/25/2024 2:01:48 PM Referred By: Electronically Signed By: Daniele Jane DO Transcribed By: MUS Signed By Daniele Jane DO 1401 Normal [facility] Eosinophils Auto (Bld) [#/Vo l]Ordered By: Daniele Jane on 10-25-2024 Eosinophils (Bld) [#/Vol] Automated eosinophil count 0.0-0.45 [facility] Eosinophils/100 WBC Auto (Bl d)Ordered By: Daniele Jane on 10-25-2024 Eosinophils/100 WBC (Bld) Automated eosinophil % . [facility] Erythrocyte distribution wid th Auto (RBC) [Ratio]Ordered By: Daniele Jane on 10-25-2024 Erythrocyte distribution width (RBC) [Ratio] Erythrocyte distribution width [Ratio] by Automated count 11.9-15.3 [facility] Glucose [Mass/volume] in Ser um or PlasmaOrdered By: Daniele Jane on 10-25-2024 Glucose [Mass/Vol] Glucose [Mass/volume ] in Serum or Plasma High 70-100 [facility] Comment on above: ADA recommended refe rence rangeRandom Glucose Reference Range is dependent on time and content of last meal. Glucose of more than 200 mg/dL in a nonstressed, ambulatory subject supports the diagnosis of Diabetes Mellitus. Hematocrit Auto (Bld) [Volum e fraction]Ordered By: Daniele Jane on 10-25-2024 Hematocrit (Bld) [Volume fraction] Hematocrit [Volume Fraction] of Blood by Automated count 34.0-46.4 [facility] Hemoglobin [Mass/volume] in BloodOrdered By: Daniele Jane on 10-25-2024 Hemoglobin (Bld) [Mass/Vol] Hemoglobin [Mass/volume] in Blood 11.8-15.4 [facility] INR in Platelet poor plasma by Coagulation assayOrdered By: Daniele Jane on 10-25-2024 INR Coag (PPP) [Relative time] INR in Platelet poor plasma by Coagulation assay [facility] Comment on above: INR Therapeutic Rang [...] erythrocytes in Blood by Automated coun 3.8-11.6 [facility] Lymphocytes Auto (Bld) [#/Vo l]Ordered By: Daniele Jane on 10-25-2024 Lymphocytes (Bld) [#/Vol] Lymphocytes [#/volume] in Blood by Automated count Low 1.00-4.8 [facility] Lymphocytes/100 WBC Auto (Bl d)Ordered By: Daniele Jane on 10-25-2024 Lymphocytes/100 WBC (Bld) Lymphocytes/100 leukocytes in Blood by Automated count . [facility] MCH Auto (RBC) [Entitic mass ]Ordered By: Dainele Jane on 10-25-2024 MCH (RBC) [Entitic mass] MCH [Entitic mass] by Automated count 24.7-34.3 [facility] MCHC Auto (RBC) [Mass/Vol]Or dered By: Daniele Jane on 10-25-2024 MCHC (RBC) [Mass/Vol] MCHC [Mass/volume] by Automated count 32.0-35.0 [facility] MCV Auto (RBC) [Entitic vol] Ordered By: Daniele Jane on 10-25-2024 MCV (RBC) [Entitic vol] MCV [Entitic volume] by Automated count 80-100 [facility] Monocyte distribution width [Entitic volume] in Blood by AutomatedOrdered By: Daniele Jane on 10-25-2024 Monocyte distribution width Auto (Bld) [Entitic vol] Monocyte distribution width [Entitic volume] in Blood by Automated High 0.00-20.00 [facility] Comment on above: For adults in ED, MD W > 20.0 may be associated with a higher risk of sepsis during the first 12 hrs of hospital admission Monocytes Auto (Bld) [#/Vol] Ordered By: Daniele Jane on 10-25-2024 Monocytes (Bld) [#/Vol] Automated blood monocyte count 0.0-0.8 [facility] Monocytes/100 WBC Auto (Bld) Ordered By: Daniele Jane on 10-25-2024 Monocytes/100 WBC (Bld) Automated monocyte % . [facility] Natriuretic peptide B [Mass/ Vol]Ordered By: Daniele Jane on 10-25-2024 Natriuretic peptide B (Bld) [Mass/Vol] BNP ser/plas High 5-100 [facility] Neutrophils Auto (Bld) [#/Vo l]Ordered By: Daniele Jane on 10-25-2024 Neutrophils (Bld) [#/Vol] Neutrophils [#/volume] in Blood by Automated count 1.8-7.7 [facility] Neutrophils/100 WBC Auto (Bl d)Ordered By: Daniele Jane on 10-25-2024 Neutrophils/100 WBC (Bld) Automated neutrophil % . [facility] No Panel InformationOrdered By: Daniele Jane on 10-25-2024 Estimated GFR (CKD-EPI) 41.704 mL/Min [facility] Creatinine Clearance (Chem 46.58 [facility] Nucleated erythrocytes [Pres ence] in Blood by Automated countOrdered By: Daniele Jane on 10-25-2024 Nucleated RBC Auto Ql (Bld) Nucleated erythrocytes [Presence] in Blood by Automated count 0-0.5 [facility] Partial Thromboplastin Timeo n 10-25-2024 aPTT Coag (Bld) [Time] 28.6 s Normal 25.1-36.5 Th e [facility] Comment on above: Result Comment: A he matocrit value greater than 55% may lead to inaccurate results in coagulation testing. Patients having hematocrit values >55% require a special collection tube for coagulation studies. Please contact the laboratory at [phone] for redraw instructions. PERFORMED BY: [facility] [address] [place] [address] PATHOLOGIST AUTO PHONE INSTALLER MAY HYDE M.D. Performed By: #### G LULS #### Point of Care testing , Platelet mean volume Auto (B ld) [Entitic vol]Ordered By: Daniele Jane on 10-25-2024 Platelet mean volume (Bld) [Entitic vol] Platelet mean volume [Entitic volume] in Blood by Automated count 6.3-10.7 [facility] Platelets Auto (Bld) [#/Vol] Ordered By: Daniele Jane on 10-25-2024 Platelets (Bld) [#/Vol] Platelets [#/volume] in Blood by Automated count Low 150-450 [facility] Potassium [Moles/volume] in Serum or PlasmaOrdered By: Daniele Jane on 10-25-2024 Potassium [Moles/Vol] Potassium [Moles/v olume] in Serum or Plasma 3.5-5.1 [facility] Prothrombin Time INRon 10-25 INR Coag (PPP) [Relative time] 1.2 {INR} Normal [facility] Comment on above: Result [...] (PPP) [Time] 13.5 s High 9.0-12.9 [facility] Comment on above: Result Comment: A he matocrit value greater than 55% may lead to inaccurate results in coagulation testing. Patients having hematocrit values >55% require a special collection tube for coagulation studies. Please contact the laboratory at [phone] for redraw instructions. Performed By: #### G LULS #### Point of Care testing , Prothrombin time (PT)Ordered By: Daniele Jane on 10-25-2024 PT Coag (PPP) [Time] Prothrombin time (PT) High 9.0- 12.9 [facility] Comment on above: A hematocrit value g reater than 55% may lead to inaccurate results in coagulation testing. Patients having hematocrit values >55% require a special collection tube for coagulation studies. Please contact the laboratory at [phone] for redraw instructions. RBC Auto (Bld) [#/Vol]Ordere d By: Daniele Jane on 10-25-2024 RBC (Bld) [#/Vol] Erythrocytes [#/volu me] in Blood by Automated count 3.60-5.00 [facility] Respiratory specimen influen za A virus, influenza B virus, respiratory syncytical virOrdered By: Daniele Jane on 10-25-2024 SARS-CoV-2 (COVID-19) RNA FERN+probe Ql (Unsp spec) Respiratory specimen influenza A virus, influenza B virus, respiratory syncytical vir [facility] SARS-CoV-2 (COVID-19) RNA FERN+probe Ql (Unsp spec) Respiratory specimen influenza A virus, influenza B virus, respiratory syncytical vir [facility] Serum or plasma anion gap de terminationOrdered By: Daniele Jane on 10-25-2024 Anion gap [Moles/Vol] Serum or plasma an ion gap determination 6.0-15.0 [facility] Sodium [Moles/volume] in Ser um or PlasmaOrdered By: Daniele Jane on 10-25-2024 Sodium [Moles/Vol] Sodium [Moles/volume ] in Serum or Plasma Low 136-145 [facility] Troponin I High Sensitivityo n 10-25-2024 Troponin I High Sensitivity 14.6 pg/mL Normal 0.0-15.0 [facility] Comment on above: Result Comment: PERF ORMED BY: [address] [address] PATHOLOGIST AUTO PHONE INSTALLER MAY HYDE M.D. Performed By: #### G LULS #### Point of Care testing , Troponin I.cardiac [Mass/vol ume] in Serum or Plasma by Detection limit <= 0.01 ng/Ordered By: Daniele Jane on 10-25-2024 Troponin I.cardiac DL <= 0.01 ng/mL [Mass/Vol] Troponin I.cardiac [Mass/volume] in Serum or Plasma by Detection limit <= 0.01 ng/ 0.0-15.0 [facility] Urea nitrogen [Mass/volume] in Serum or PlasmaOrdered By: Daniele Jane on 10-25-2024 Urea nitrogen [Mass/Vol] Urea nitrogen [Mass/volume] in Serum or Plasma High 7-25 [facility] WBC Auto (Bld) [#/Vol]Ordere d By: Daniele Jane on 10-25-2024 WBC (Bld) [#/Vol] Leukocytes [#/volume ] in Blood by Automated count 3.8-11.6 [facility] XR chest 1V portableon 10-25 XR chest 1V portable [facility] [address] [place] [address] [place] [address] XRay Report Signed Patient: Joe Call MR#: [id number] 0 : 1945 Acct:[id number] Age/Sex: 79 / F ADM Date: 10/25/24 Loc: ER Room: Type: [facility] ER Attending Dr: Copies to: Daniele [...] Jarred Randolph M.D.10/25/2024 7:35 AM Dictation Location: [place] [address] Transcribed By: [facility] 10/25/24 0735 Dictated By: Jarred Randolph DO 10/25/24 0734 Signed By: 10/25/24 0735 Normal [facility] aPTT in Platelet poor plasma by Coagulation assayOrdered By: Daniele Jane on 10-25-2024 aPTT Coag (PPP) [Time] Activated partial thromboplastin time (aPTT) in platelet poor plasma by coagulation a 25.1-36.5 [facility] Comment on above: A hematocrit value g reater than 55% may lead to inaccurate results in coagulation testing. Patients having hematocrit values >55% require a special collection tube for coagulation studies. Please contact the laboratory at [phone] for redraw instructions. Appearance of UrineOrdered B y: Zhang Norwood on 10-22-2024 Appearance (U) Urine appearance Abnormal Clear [facility] Bacteria [Presence] in Urine by AutomatedOrdered By: Zhang Norwood on 10-22-2024 Bacteria Auto Ql (U) Bacteria [Presence] in Urine by Automated None Seen [facility] Bilirubin Test strip Ql (U)O rdered By: Zhang Norwood on 10-22-2024 Bilirubin Ql (U) Bilirubin.total [Presence] in Urine by Test strip Negative [facility] Calcium oxalate crystals [Pr esence] in Urine by Computer assisted methodOrdered By: Zhang Norwood on 10-22-2024 Calcium oxalate crystals Computer assisted Ql (U) Calcium oxalate crystals [Presence] in Urine by Computer assisted method [facility] Color Auto (U)Ordered By: Renetta Norwood on 10-22-2024 Color (U) Color of Urine by Auto Yellow [facility] Dipstick and Microscopicon 1 12-23-2023 Appearance (U) Cloudy Critically abnormal Clear [facility] Comment on above: Order Comment: Name Collection Type:: Peacock Catheter Performed By: #### M G, BMP #### [address] Bacteria,Urine None Seen Normal None Seen [facility] Comment on above: Order Comment: Name Collection Type:: Peacock Catheter Performed By: #### M G, BMP #### [address] Bilirubin,Urine Negative Normal Negative [facility] Comment on above: Order Comment: Name Collection Type:: Peacock Catheter Performed By: #### M G, BMP #### [facility] [address] [place] [address] [place] Calcium Oxalate Crystals,Urine Rare Normal [facility] Comment on above: Order Comment: Name Collection Type:: Peacock Catheter Performed By: #### M G, BMP #### [facility] [address] [place], [place] [id number] [place] Color (U) Yellow Normal Yellow [facility] Comment on above: Order Comment: Name Collection Type:: Peacock Catheter Performed By: #### M G, BMP #### [facility] [address] [place], [place] [id number] [place] Glucose Ql (U) 30 mg/dL High Normal [facility] Comment on above: Order Comment: Name Collection Type:: Peacock Catheter Performed By: #### M G, BMP #### [facility] [address] [place], [place] [id number] [place] Hyaline Casts,Urine 0 [LPF] Normal 0-8 [facility] Comment on above: Order Comment: Name Collection Type:: Peacock Catheter Performed By: #### M G, BMP #### [address] Ketones Ql (U) Negative Normal Negative [facility] Comment on above: Order Comment: Name Collection Type:: Peacock Catheter Performed By: #### M G, BMP #### [address] Leukocyte esterase Test strip Ql (U) 1+ High Negative [facility] Comment on above: Order Comment: Name Collection Type:: Peacock Catheter Performed By: #### M G, BMP #### [place] [address] [place] Mucus,Urine Rare Normal [facility] Comment on above: Order Comment: Name Collection Type:: Peacock Catheter Result Comment: PERF ORMED BY: [place] [address] PATHOLOGIST AUTO PHONE INSTALLER MAY HYDE M.D. Performed By: #### M G, BMP #### [address] Nitrite,Urine Negative Normal Negative [facility] Comment on above: Order Comment: Name Collection Type:: Peacock Catheter Performed By: #### M G, BMP #### [place] [address] [place] Occult Blood,Urine 3+ High Negative [facility] Comment on above: Order Comment: Name Collection Type:: Peacock Catheter Result Comment: PERF ORMED BY: [place] [address] PATHOLOGIST AUTO PHONE INSTALLER MAY HYDE M.D. Performed By: #### M G, BMP #### [place] [address] [place] pH (U) 5.5 [pH] Normal 5.0-9.0 [facility] Comment on above: Order Comment: Name Collection Type:: Peacock Catheter Performed By: #### M G, BMP #### [place] [address] [place] Protein (U) [Mass/Vol] 300 mg/dL High Negative Th e [facility] Comment on above: Order Comment: Name Collection Type:: Peacock Catheter Performed By: #### M G, BMP #### [facility] [address] [place] [address] RBC,Urine Innumerable High 0-4 [facility] Comment on above: Order Comment: Name Collection Type:: Peacock Catheter Performed By: #### M G, BMP #### [address] Specificy Occidental,Urine 1.019 Normal 1.001-1.030 [facility] Comment on above: Order Comment: Name Collection Type:: Peacock Catheter Performed By: #### M G, BMP #### [address] Squamous Epithelial Cell,Urine 1 [HPF] Normal 0-2 [facility] Comment on above: Order Comment: Name Collection Type:: Peacock Catheter Performed By: #### M G, BMP #### [address] Urobilinogen,Urine Normal Normal Normal [facility] Comment on above: Order Comment: Name Collection Type:: Peacock Catheter Performed By: #### M G, BMP #### [address] WBC,Urine 10 [HPF] High 0-4 [facility] Comment on above: Order Comment: Name Collection Type:: Peacock Catheter Performed By: #### M G, BMP #### [address] Epithelial cells.squamous [# /area] in Urine sediment by Automated countOrdered By: Zhang Norwood on 10-22-2024 Epithelial cells.squamous Auto (Urine sed) [#/Area] Epithelial cells.squamous [#/area] in Urine sediment by Automated count 0-2 [facility] Erythrocytes [#/area] in Uri ne sediment by Automated countOrdered By: Zhang Norwood on 10-22-2024 RBC Auto (Urine sed) [#/Area] Erythrocytes [#/area] in Urine sediment by Automated count High 0-4 [facility] Glucose [Mass/volume] in Uri ne by Test stripOrdered By: Zhang Norwood on 10-22-2024 Glucose Test strip (U) [Mass/Vol] Glucose [Mass/volume] in Urine by Test strip High Normal [facility] Hemoglobin Test strip Ql (U) Ordered By: Zhang Norwood on 10-22-2024 Hemoglobin Ql (U) Hemoglobin [Presence ] in Urine by Test strip High Negative [facility] Hyaline casts [#/area] in Ur ine sediment by Automated countOrdered By: Zhang Norwood on 10-22-2024 Hyaline casts Auto (Urine sed) [#/Area] Hyaline casts [#/area] in Urine sediment by Automated count 0-8 [facility] Ketones Test strip Ql (U)Ord ered By: Zhang Norwood on 10-22-2024 Ketones Ql (U) Ketones [Presence] i n Urine by Test strip Negative [facility] Leukocyte esterase [Presence ] in Urine by Test stripOrdered By: Zhang Norwood on 10-22-2024 Leukocyte esterase Test strip Ql (U) Leukocyte esterase [Presence] in Urine by Test strip [facility] Negative [facility] Leukocytes [#/area] in Urine sediment by Automated countOrdered By: Zhang Norwood on 10-22-2024 WBC Auto (Urine sed) [#/Area] Leukocytes [#/area] in Urine sediment by Automated count High 0-4 [facility] Mucus [Presence] in Urine by AutomatedOrdered By: Zhang Norwood on 10-22-2024 Mucus Auto Ql (U) Mucus [Presence] in Urine by Automated [facility] Nitrite Test strip Ql (U)Ord ered By: Zhang Norwood on 10-22-2024 Nitrite Ql (U) Nitrite [Presence] i n Urine by Test strip Negative [facility] Protein Test strip (U) [Mass /Vol]Ordered By: Zhang Norwood on 10-22-2024 Protein (U) [Mass/Vol] Protein [Mass/vol ume] in Urine by Test strip High Negative [facility] Specific gravity Test strip (U) [Rel density]Ordered By: Zhang Norwood on 10-22-2024 Specific gravity (U) [Rel density] Specific gravity of Urine by Test strip 1.001-1.030 [facility] Urine Cultureon 10-22-2024 Bacteria identified Cx Nom (U) 15,000 colonies/ml mixed bacterial skin contaminants 2 Days PERFORMED BY: [place] [address] PATHOLOGIST AUTO PHONE INSTALLER MAY HYDE M.D. Normal [facility] Comment on above: Performed By: #### M G, BMP #### [address] Urine cultureOrdered By: Hortensia Norwood on 10-22-2024 Bacteria identified Cx Nom (U) Urine culture [facility] Bacteria identified Cx Nom (U) Urine culture [facility] Urobilinogen Test strip (U) [Mass/Vol]Ordered By: Zhang Norwood on 10-22-2024 Urobilinogen (U) [Mass/Vol] Urobilinogen [Mass/volume] in Urine by Test strip Normal [facility] pH Test strip (U)Ordered By: Zhang Norwood on 10-22-2024 pH (U) pH of Urine by Test strip 5.0-9.0 [facility] A1C with Estimated Average Bela hansen 10-20-2024 Glucose [Mass/Vol] 292 mg/dL Normal [facility] Comment on above: Result Comment: PERF ORMED BY: [place] [address] PATHOLOGIST AUTO PHONE INSTALLER MAY HYDE M.D. Performed By: #### A 1C WT eA #### [place] [id number] [facility] HbA1c (Bld) [Mass fraction] 11.8 % High 4.3-5.6 [facility] Comment on above: Result Comment: Incr eased risk for diabetes: 5.7 - 6.4 diabetes: >6.4 glycemic control for adults with diabetes: <7.0 Performed By: #### A 1C WTH eA #### [address] [address] [facility] Basic Metabolic Panelon Anion gap [Moles/Vol] Not performed Normal 6.0-15.0 [facility] Comment on above: Performed By: #### M G, BMP #### [facility] [address] Calcium [Mass/Vol] 8.7 mg/dL Normal 8.6-10.3 [facility] Comment on above: Performed By: #### M G, BMP #### [facility] [address] [place] [address] [place] Chloride [Moles/Vol] 97 mmol/L Low 98-107 [facility] Comment on above: Performed By: #### M G, BMP #### [facility] [address] CO2 [Moles/Vol] 26.0 mmol/L Normal 21.0-31.0 [facility] Comment on above: Performed By: #### M G, BMP #### [facility] [address] Creatinine [Mass/Vol] 3.06 mg/dL High 0.60-1.20 [facility] Comment on above: Performed By: #### M G, BMP #### [facility] [address] [place] [address] [place] Creatinine Clr Calc Pharmacy 18.79 Normal [facility] Comment on above: Performed By: #### M G, BMP #### [facility] [address] [place] [id number] [facility] Estimated GFR 15.067 mL/Min Normal [facility] Comment on above: Performed By: #### M G, BMP #### [facility] [address] Glucose [Mass/Vol] 159 mg/dL Significant change up 70-100 [facility] Comment on above: Result Comment: [place] Glucose Reference Range is dependent on time and content of last meal. Glucose of more than 200 mg/dL in a nonstressed, ambulatory subject supports the diagnosis of Diabetes Mellitus. ADA recommended reference range Performed By: #### M G, BMP #### [facility] [address] Potassium Normal 3.5-5.1 [facility] Comment on above: Result Comment: Spec imen hemolyzed, redraw requested Performed By: #### M G, BMP #### [facility] [address] Sodium Normal 136-145 [facility] Comment on above: Result Comment: Spec imen hemolyzed, redraw requested Performed By: #### M G, BMP #### [facility] [address] [place] [address] [place] Urea nitrogen [Mass/Vol] 91 mg/dL High 7-25 [facility] Comment on above: Performed By: #### M G, BMP #### [facility] [address] Blood estimated average gluc ose determination by estimation from glycated hemoglobinOrdered By: Kavin Escobar on 10-20-2024 Average glucose Estimated from glycated hemoglobin (Bld) [Mass/Vol] Glucose mean value [Mass/volume] in Blood Estimated from glycated hemoglobin [facility] Calcium [Mass/volume] in Ser um or PlasmaOrdered By: Mauri Chavira on 10-20-2024 Calcium [Mass/Vol] Calcium [Mass/volume ] in Serum or Plasma 8.6-10.3 [facility] Carbon dioxide, total [Moles /volume] in Serum or PlasmaOrdered By: Mauri Chavira on 10-20-2024 CO2 [Moles/Vol] Carbon dioxide, tota l [Moles/volume] in Serum or Plasma 21.0-31.0 [facility] Chloride [Moles/volume] in S oziel or PlasmaOrdered By: Mauri Chavira on 10-20-2024 Chloride [Moles/Vol] Chloride [Moles/vol ume] in Serum or Plasma Low 98-107 [facility] Creatinine [Mass/volume] in Serum or PlasmaOrdered By: Mauri Chavira on 10-20-2024 Creatinine [Mass/Vol] Creatinine [Mass/v olume] in Serum or Plasma High 0.60-1.20 [facility] Glucose Glucometer (BldC) [M ass/Vol]Ordered By: Kavin sEcobar on 10-20-2024 Glucose [Mass/Vol] Capillary blood gluc ose measurement by glucometer (mass/volume) [facility] Comment on above: Random Glucose Refer ence Range is dependent on time and content of last meal. Glucose of more than 200 mg/dL in a nonstressed, ambulatory subject supports the diagnosis of Diabetes Mellitus. Glucose Poct Glucometerson 1 12-21-2023 Glucose [Mass/Vol] 209 mg/dL Normal [facility] Comment on above: Result Comment: [place] om Glucose Reference Range is dependent on time and content of last meal. Glucose of more than 200 mg/dL in a nonstressed, ambulatory subject supports the diagnosis of Diabetes Mellitus. PERFORMED BY: [place] [address] PATHOLOGIST AUTO PHONE INSTALLER MAY HYDE M.D. Performed By: #### C OVID19 FLU RSV, CEPHEID POS #### [facility] [address] [place] [id number] Glucose [Mass/Vol] 164 mg/dL Normal [facility] Comment on above: Result Comment: [place] Glucose Reference Range is dependent on time and content of last meal. Glucose of more than 200 mg/dL in a nonstressed, ambulatory subject supports the diagnosis of Diabetes Mellitus. PERFORMED BY: [place] [id number] PATHOLOGIST AUTO PHONE INSTALLER MAY HYDE M.D. Performed By: #### M G, BMP #### [facility] [address] [place], [place] [phone] [place] Glucose [Mass/volume] in Ser um or PlasmaOrdered By: Mauri Chavira on 10-20-2024 Glucose [Mass/Vol] Glucose [Mass/volume ] in Serum or Plasma Invalid Interpretation Code 70-100 [facility] Comment on above: Delta: [id number] recommended reference rangeRandom Glucose Reference Range is dependent on time and content of last meal. Glucose of more than 200 mg/dL in a nonstressed, ambulatory subject supports the diagnosis of Diabetes Mellitus. Hemoglobin A1c/Hemoglobin.to vinicio in BloodOrdered By: Kavin Escobar on 10-20-2024 HbA1c (Bld) [Mass fraction] Hemoglobin A1c percentage High 4.3-5.6 [facility] Comment on above: Increased risk for d iabetes: 5.7 - 6.4diabetes: >6.4glycemic control for adults with diabetes: <7.0 Magnesiumon 10-20-2024 Magnesium Normal 1.9-2.7 [facility] Comment on above: Result Comment: Spec imen hemolyzed, redraw requested PERFORMED BY: [place] [address] PATHOLOGIST AUTO PHONE INSTALLER MAY HYDE M.D. Performed By: #### M Bela, BMP #### [address] Magnesium [Mass/volume] in S oziel or PlasmaOrdered By: Mauri Chavira on 10-20-2024 Magnesium [Mass/Vol] Magnesium [Mass/vol ume] in Serum or Plasma 1.9-2.7 [facility] No Panel InformationOrdered By: Mauri Chavira on 10-20-2024 Estimated GFR (CKD-EPI) 15.067 mL/Min [facility] Pharmacy Creatinine Clearance (Chem 18.79 [facility] Potassium [Moles/volume] in Serum or PlasmaOrdered By: Mauri Chavira on 10-20-2024 Potassium [Moles/Vol] Potassium [Moles/v olume] in Serum or Plasma 3.5-5.1 [facility] Redraw Magnesiumon Magnesium [Mass/Vol] 1.9 mg/dL Normal 1.9-2.7 [facility] Comment on above: Result Comment: PERF ORMED BY: [place] [address] PATHOLOGIST AUTO PHONE INSTALLER MAY HYDE M.D. Performed By: #### Bela LULS #### Point of Care testing , Redraw Magnesium Normal 1.9-2.7 [facility] Comment on above: Result Comment: Spec imen hemolyzed, redraw requested PERFORMED BY: [place] [address] PATHOLOGIST AUTO PHONE INSTALLER MAY HYDE M.D. Performed By: #### C OVID19 FLU RSV, CEPHEID POS #### [address] Redraw Potassiumon Potassium [Moles/Vol] 4.0 mmol/L Normal 3.5-5.1 [facility] Comment on above: Performed By: #### G LULS #### Point of Care testing , Redraw Potassium Normal 3.5-5.1 [facility] Comment on above: Result Comment: Spec imen hemolyzed, redraw requested Performed By: #### C OVID19 FLU RSV, CEPHEID POS #### [address] Redraw Sodiumon 10-20-2024 Sodium [Moles/Vol] 134 mmol/L Low 136-145 [facility] Comment on above: Performed By: #### C OVID19 FLU RSV, CEPHEID POS #### [address] Serum or plasma anion gap de terminationOrdered By: Mauri Chavira on 10-20-2024 Anion gap [Moles/Vol] Serum or plasma an ion gap determination [facility] Comment on above: Test not performed Sodium [Moles/volume] in Ser um or PlasmaOrdered By: Mauri Chavira on 10-20-2024 Sodium [Moles/Vol] Sodium [Moles/volume ] in Serum or Plasma Low 136-145 [facility] Urea nitrogen [Mass/volume] in Serum or PlasmaOrdered By: Mauri Chavira on 10-20-2024 Urea nitrogen [Mass/Vol] Urea nitrogen [Mass/volume] in Serum or Plasma High 7-25 [facility] Basic Metabolic Panelon 12-0 Anion gap [Moles/Vol] 14.7 mmol/L Normal 6.0-15.0 Th e [facility] Comment on above: Performed By: #### M G, BMP #### [facility] [address] Calcium [Mass/Vol] 9.1 mg/dL Normal 8.6-10.3 [facility] Comment on above: Performed By: #### Vandana Cramer, BMP #### [address] Chloride [Moles/Vol] 95 mmol/L Low 98-107 [facility] Comment on above: Performed By: #### Vandana Cramer, BMP #### [address] CO2 [Moles/Vol] 28.6 mmol/L Normal 21.0-31.0 [facility] Comment on above: Performed By: #### Vandana Cramer, BMP #### [address] Creatinine [Mass/Vol] 2.71 mg/dL Significan t change up 0.60-1.20 [facility] Comment on above: Performed By: #### Vandana Cramer, BMP #### [place] [address] [place] Creatinine Clr Calc Pharmacy 21.49 Normal [facility] Comment on above: Performed By: #### Vandana Cramer, BMP #### [address] Estimated GFR 17.432 mL/Min Normal [facility] Comment on above: Performed By: #### Vandana Cramer, BMP #### [address] Glucose [Mass/Vol] 288 mg/dL High 70-100 [facility] Comment on above: Result Comment: [place] Glucose Reference Range is dependent on time and content of last meal. Glucose of more than 200 mg/dL in a nonstressed, ambulatory subject supports the diagnosis of Diabetes Mellitus. ADA recommended reference range Performed By: #### Vandana G, BMP #### [address] Potassium [Moles/Vol] 4.3 mmol/L Normal 3.5-5.1 [facility] Comment on above: Performed By: #### M G, BMP #### [facility] [address] Sodium [Moles/Vol] 134 mmol/L Low 136-145 [facility] Comment on above: Performed By: #### M G, BMP #### [facility] [address] Urea nitrogen [Mass/Vol] 77 mg/dL High 7-25 [facility] Comment on above: Performed By: #### M G, BMP #### [facility] [address] Glucose Poct Glucometerson 1 12-20-2023 Glucose [Mass/Vol] 222 mg/dL Normal [facility] Comment on above: Result Comment: [place] om Glucose Reference Range is dependent on time and content of last meal. Glucose of more than 200 mg/dL in a nonstressed, ambulatory subject supports the diagnosis of Diabetes Mellitus. PERFORMED BY: [place] [address] PATHOLOGIST AUTO PHONE INSTALLER MAY HYDE M.D. Performed By: #### G LULS #### Point of Care testing , Glucose [Mass/Vol] 306 mg/dL Normal [facility] Comment on above: Result Comment: [place] Glucose Reference Range is dependent on time and content of last meal. Glucose of more than 200 mg/dL in a nonstressed, ambulatory subject supports the diagnosis of Diabetes Mellitus. PERFORMED BY: [place] [address] PATHOLOGIST AUTO PHONE INSTALLER MAY HYDE M.D. Performed By: #### C OVID19 FLU RSV, CEPHEID POS #### [address] Glucose [Mass/Vol] 342 mg/dL Normal [facility] Comment on above: Result Comment: [place] om Glucose Reference Range is dependent on time and content of last meal. Glucose of more than 200 mg/dL in a nonstressed, ambulatory subject supports the diagnosis of Diabetes Mellitus. PERFORMED BY: [place] [address] PATHOLOGIST AUTO PHONE INSTALLER MAY HYDE M.D. Performed By: #### Vandana Cramer, BMP #### [address] Glucose [Mass/Vol] 267 mg/dL Normal The [facility] Comment on above: Result Comment: [facility] Glucose Reference Range is dependent on time and content of last meal. Glucose of more than 200 mg/dL in a nonstressed, ambulatory subject supports the diagnosis of Diabetes Mellitus. PERFORMED BY: [place] [address] PATHOLOGIST AUTO PHONE INSTALLER MAY HYDE M.D. Performed By: #### Vandana Cramer, BMP #### [address] Magnesiumon 10-19-2024 Magnesium [Mass/Vol] 2.0 mg/dL Normal 1.9-2.7 The [facility] Comment on above: Result Comment: PERF ORMED BY: [place] [address] PATHOLOGIST AUTO PHONE INSTALLER MAY HYDE M.D. Performed By: #### Vandana Cramer, BMP #### [address] Basic Metabolic Panelon 12-0 Anion gap [Moles/Vol] 15.4 mmol/L High 6.0-15.0 Th [facility] Comment on above: Order Comment: REY PARKER NOTIFIED. SMB 0442. Performed By: #### Vandana Cramer, KAREN, TSH3, T4F #### [address] Calcium [Mass/Vol] 9.5 mg/dL Normal 8.6-10.3 The [facility] Comment on above: Order Comment: REY PARKER NOTIFIED. SMB 0442. Performed By: #### Vandana Cramer, KAREN, TSH3, T4F #### [address] Chloride [Moles/Vol] 97 mmol/L Low 98-107 The [facility] Comment on above: Order Comment: REY PARKER NOTIFIED. SMB 0442. Performed By: #### KAREN Hansen, TSH3, T4F #### [address] CO2 [Moles/Vol] 29.7 mmol/L Normal 21.0-31.0 The [facility] Comment on above: Order Comment: REY PARKER NOTIFIED. SMB 0442. Performed By: #### KAREN Hansen, TSH3, T4F #### [address] Creatinine [Mass/Vol] 1.81 mg/dL High 0.60-1.20 The [facility] Comment on above: Order Comment: REY PARKER NOTIFIED. SMB 0442. Performed By: #### KAREN Hansen, TSH3, T4F #### [address] Creatinine Clr Calc Pharmacy 32.95 Normal The [facility] Comment on above: Order Comment: REY PARKER NOTIFIED. SMB 0442. Performed By: #### KAREN Hansen, TSH3, T4F #### [address] Estimated GFR 28.294 mL/Min Normal The [facility] Comment on above: Order Comment: REY PARKER NOTIFIED. SMB 0442. Performed By: #### KAREN Hansen, TSH3, T4F #### [address] Glucose [Mass/Vol] 220 mg/dL High 70-100 The [facility] Comment on above: Order Comment: REY PARKER NOTIFIED. SMB 0442. Result Comment: [place] Glucose Reference Range is dependent on time and content of last meal. Glucose of more than 200 mg/dL in a nonstressed, ambulatory subject supports the diagnosis of Diabetes Mellitus. ADA recommended reference range Performed By: #### Vandana Cramer, KAREN, TSH3, T4F #### [address] Potassium [Moles/Vol] 4.1 mmol/L Normal 3.5-5.1 The [facility] Comment on above: Order Comment: REY PARKER NOTIFIED. SMB 0442. Performed By: #### M G, BMP, TSH3, T4F #### [address] Sodium [Moles/Vol] 138 mmol/L Normal 136-145 The [facility] Comment on above: Order Comment: REY PARKER NOTIFIED. SMB 0442. Performed By: #### M G, BMP, TSH3, T4F #### [address] Urea nitrogen [Mass/Vol] 66 mg/dL High 7-25 The [facility] Comment on above: Order Comment: REY PARKER NOTIFIED. SMB 0442. Performed By: #### M G, BMP, TSH3, T4F #### [address] Free T4 (Free Thyroxine)on 1 12-19-2023 Free T4 [Mass/Vol] 1.26 ng/dL High 0.61-1.12 The [facility] Comment on above: Order Comment: REY PARKER NOTIFIED. SMB 0442. Performed By: #### C OVID19 FLU RSV, CEPHEID POS #### [address] Glucose Poct Glucometerson 1 12-19-2023 Glucose [Mass/Vol] 329 mg/dL Normal The [facility] Comment on above: Result Comment: [place] Glucose Reference Range is dependent on time and content of last meal. Glucose of more than 200 mg/dL in a nonstressed, ambulatory subject supports the diagnosis of Diabetes Mellitus. PERFORMED BY: [place] [address] PATHOLOGIST AUTO PHONE INSTALLER MAY HYDE M.D. Performed By: #### M G, BMP #### [place] [address] [place] Glucose [Mass/Vol] 210 mg/dL Normal [facility] Comment on above: Result Comment: [place] Glucose Reference Range is dependent on time and content of last meal. Glucose of more than 200 mg/dL in a nonstressed, ambulatory subject supports the diagnosis of Diabetes Mellitus. PERFORMED BY: [place] [address] PATHOLOGIST AUTO PHONE INSTALLER MAY HYDE M.D. Performed By: #### C OVID19 FLU RSV, CEPHEID POS #### [address] Glucose [Mass/Vol] 251 mg/dL Normal The [facility] Comment on above: Result Comment: [place] Glucose Reference Range is dependent on time and content of last meal. Glucose of more than 200 mg/dL in a nonstressed, ambulatory subject supports the diagnosis of Diabetes Mellitus. PERFORMED BY: [place] [address] PATHOLOGIST AUTO PHONE INSTALLER MAY HYDE M.D. Performed By: #### C OVID19 FLU RSV, CEPHEID POS #### [place] [address] [place] Glucose [Mass/Vol] 207 mg/dL Normal The [facility] Comment on above: Result Comment: [place] Glucose Reference Range is dependent on time and content of last meal. Glucose of more than 200 mg/dL in a nonstressed, ambulatory subject supports the diagnosis of Diabetes Mellitus. PERFORMED BY: [place] [address] PATHOLOGIST AUTO PHONE INSTALLER MAY HYDE M.D. Performed By: #### M G, BMP #### [place] [address] [place] Glucose [Mass/Vol] 188 mg/dL Normal The [facility] Comment on above: Result Comment: [place] Glucose Reference Range is dependent on time and content of last meal. Glucose of more than 200 mg/dL in a nonstressed, ambulatory subject supports the diagnosis of Diabetes Mellitus. PERFORMED BY: [address] [place] [address] PATHOLOGIST AUTO PHONE INSTALLER MAY HYDE M.D. Performed By: #### Vandana Cramer, BMP #### [address] Magnesiumon 10-18-2024 Magnesium [Mass/Vol] 2.1 mg/dL Normal 1.9-2.7 The [facility] Comment on above: Order Comment: REY PARKER NOTIFIED. SMB 0442. Performed By: #### C OVID19 FLU RSV, CEPHEID POS #### [address] Serum or plasma thyroperoxid ase antibody assay (units/volume)Ordered By: Mauri Chavira on 10-18-2024 TPO Ab Qn Serum or plasma thyroperoxidase antibody assay (units/volume) 0-34 [facility] Comment on above: Performed at: [facility] [place] [address]Lab Director: Dimitri Landis PhD, Phone: [phone] Thyroid Peroxidase Antibodie son 10-18-2024 Thyroid Peroxidase Antibodies <9 Normal 0-34 The [facility] Comment on above: Order Comment: REY PARKER NOTIFIED. SMB 0442. Result Comment: Perf ormed at: [facility] [place] [address] Sand Operator: Dimitri Landis PhD, Phone: [phone] PERFORMED BY: [place] [address] PATHOLOGIST AUTO PHONE INSTALLER MAY HYDE M.D. Performed By: #### Vandana Cramer, BMP #### [address] Thyroid Stimulating Hormoneo n 10-18-2024 TSH Qn 1.86 m[IU]/L Normal 0.45-5.33 The [facility] Comment on above: Order Comment: REY PARKER NOTIFIED. SMB 0442. Result Comment: PERF ORMED BY: [address] [address] PATHOLOGIST AUTO PHONE INSTALLER MAY HYDE M.D. Performed By: #### C OVID19 FLU RSV, CEPHEID POS #### [facility] [address] Thyrotropin [Units/volume] i n Serum or PlasmaOrdered By: Mauri Chavira on 10-18-2024 TSH Qn Thyrotropin [Units/volume] in Serum or Plasma 0.45-5.33 [facility] Thyroxine (T4) free [Mass/vo lume] in Serum or PlasmaOrdered By: Mauri Chavira on 10-18-2024 Free T4 [Mass/Vol] Thyroxine (T4) free [Mass/volume] in Serum or Plasma High 0.61-1.12 [facility] Alanine aminotransferase [En zymatic activity/volume] in Serum or PlasmaOrdered By: Mauri Chavira on 10-17-2024 ALT [Catalytic activity/Vol] Alanine aminotransferase [Enzymatic activity/volume] in Serum or Plasma 7-52 [facility] Albumin [Mass/volume] in Ser um or Plasma by Bromocresol green (BCG) dye binding methoOrdered By: Mauri Chavira on 10-17-2024 Albumin BCG dye [Mass/Vol] Albumin [Mass/volume] in Serum or Plasma by Bromocresol green (BCG) dye binding metho 3.5-5.7 [facility] Alkaline phosphatase [Enzyma tic activity/volume] in Serum or PlasmaOrdered By: Mauri Chavira on 10-17-2024 ALP [Catalytic activity/Vol] Alkaline phosphatase [Enzymatic activity/volume] in Serum or Plasma 34-104 [facility] Aspartate aminotransferase [ Enzymatic activity/volume] in Serum or PlasmaOrdered By: Mauri Chavira on 10-17-2024 AST [Catalytic activity/Vol] Aspartate aminotransferase [Enzymatic activity/volume] in Serum or Plasma 13-39 [facility] Basophils Auto (Bld) [#/Vol] Ordered By: Mauri Chavira on 10-17-2024 Basophils (Bld) [#/Vol] Automated basophil count 0.0-0.2 [facility] Basophils/100 WBC Auto (Bld) Ordered By: Mauri Chavira on 10-17-2024 Basophils/100 WBC (Bld) Automated basophil % . [facility] Bilirubin.total [Mass/volume ] in Serum or PlasmaOrdered By: Mauri Chavira on 10-17-2024 Bilirubin [Mass/Vol] Bilirubin.total [Mass/volume] in Serum or Plasma 0.3-1.0 [facility] Complete Blood Count Auto Di ffon 10-17-2024 Basophils (Bld) [#/Vol] 0.1 10*3/uL Normal 0.0-0.2 The [facility] Comment on above: Result Comment: PERF ORMED BY: [address] [place] [address] PATHOLOGIST AUTO PHONE INSTALLER MAY HYDE M.D. Performed By: #### C OVID19 FLU RSV, CEPHEID POS #### [address] Basophils/100 WBC (Bld) 0.8 % Normal . [facility] Comment on above: Performed By: #### C OVID19 FLU RSV, CEPHEID POS #### [address] Eosinophils (Bld) [#/Vol] 0.1 10*3/uL Normal 0.0-0.45 The [facility] Comment on above: Performed By: #### C OVID19 FLU RSV, CEPHEID POS #### [address] Eosinophils/100 WBC (Bld) 0.7 % Normal . [facility] Comment on above: Performed By: #### C OVID19 FLU RSV, CEPHEID POS #### [address] Erythrocyte distribution width (RBC) [Ratio] 15.4 % High 11.9-15.3 The [facility] Comment on above: Performed By: #### C OVID19 FLU RSV, CEPHEID POS #### [address] Hematocrit (Bld) [Volume fraction] 40.4 % Normal 34.0-46.4 The [facility] Comment on above: Performed By: #### C OVID19 FLU RSV, CEPHEID POS #### [address] Hemoglobin (Bld) [Mass/Vol] 13.3 g/dL Normal 11.8-15.4 The [facility] Comment on above: Performed By: #### C OVID19 FLU RSV, CEPHEID POS #### [address] Lymphocytes (Bld) [#/Vol] 1.4 10*3/uL Normal 1.00-4.8 [facility] Comment on above: Performed By: #### C OVID19 FLU RSV, CEPHEID POS #### [address] Lymphocytes/100 WBC (Bld) 15.2 % Normal . [facility] Comment on above: Performed By: #### C OVID19 FLU RSV, CEPHEID POS #### [address] MCH (RBC) [Entitic mass] 29.3 pg Normal 24.7-34.3 The [facility] Comment on above: Performed By: #### C OVID19 FLU RSV, CEPHEID POS #### [address] MCV (RBC) [Entitic vol] 88.8 fL Normal 80-100 [facility] Comment on above: Performed By: #### C OVID19 FLU RSV, CEPHEID POS #### [address] Mean Corpuscular HGB Conc 33.0 g/dL Normal 32.0-35.0 [facility] Comment on above: Performed By: #### C OVID19 FLU RSV, CEPHEID POS #### [address] Monocytes (Bld) [#/Vol] 0.7 10*3/uL Normal 0.0-0.8 [facility] Comment on above: Performed By: #### C OVID19 FLU RSV, CEPHEID POS #### [address] Monocytes/100 WBC (Bld) 7.2 % Normal . [facility] Comment on above: Performed By: #### C OVID19 FLU RSV, CEPHEID POS #### [address] Neutrophils (Bld) [#/Vol] 7.0 10*3/uL Normal 1.8-7.7 [facility] Comment on above: Performed By: #### C OVID19 FLU RSV, CEPHEID POS #### [address] Neutrophils/100 WBC (Bld) 76.1 % Normal . [facility] Comment on above: Performed By: #### C OVID19 FLU RSV, CEPHEID POS #### [address] NRBC% 0.0 /100{WBC} Normal 0-0.5 The [facility] Comment on above: Performed By: #### C OVID19 FLU RSV, CEPHEID POS #### [address] Platelet mean volume (Bld) [Entitic vol] 9.5 fL Normal 6.3-10.7 The [facility] Comment on above: Performed By: #### C OVID19 FLU RSV, CEPHEID POS #### [place] [address] [place] Platelets (Bld) [#/Vol] 183 10*3/uL Normal 150-450 [facility] Comment on above: Performed By: #### C OVID19 FLU RSV, CEPHEID POS #### [place] [address] [place] RBC (Bld) [#/Vol] 4.55 10*6/uL Normal 3.60-5.00 The [facility] Comment on above: Performed By: #### C OVID19 FLU RSV, CEPHEID POS #### [place] [id number] [place] WBC (Bld) [#/Vol] 9.2 10*3/uL Normal 3.8-11.6 The [facility] Comment on above: Performed By: #### C OVID19 FLU RSV, CEPHEID POS #### [address] Comprehensive Metabolic Pane daniele 10-17-2024 Albumin [Mass/Vol] 3.5 g/dL Normal 3.5-5.7 [facility] Comment on above: Performed By: #### C OVID19 FLU RSV, CEPHEID POS #### [address] Albumin/Globulin [Mass ratio] 0.9 {ratio} Normal The [facility] Comment on above: Performed By: #### C OVID19 FLU RSV, CEPHEID POS #### [address] ALP [Catalytic activity/Vol] 99 U/L Normal 34-104 [facility] Comment on above: Performed By: #### C OVID19 FLU RSV, CEPHEID POS #### [address] ALT [Catalytic activity/Vol] 42 U/L Normal 7-52 [facility] Comment on above: Performed By: #### C OVID19 FLU RSV, CEPHEID POS #### [address] Anion gap [Moles/Vol] 14.7 mmol/L Normal 6.0-15.0 [facility] Comment on above: Performed By: #### C OVID19 FLU RSV, CEPHEID POS #### [address] AST [Catalytic activity/Vol] 35 U/L Normal 13-39 [facility] Comment on above: Performed By: #### C OVID19 FLU RSV, CEPHEID POS #### [address] Bilirubin [Mass/Vol] 0.6 mg/dL Normal 0.3-1.0 [facility] Comment on above: Performed By: #### C OVID19 FLU RSV, CEPHEID POS #### [address] Calcium [Mass/Vol] 9.6 mg/dL Normal 8.6-10.3 [facility] Comment on above: Performed By: #### C OVID19 FLU RSV, CEPHEID POS #### [address] Chloride [Moles/Vol] 99 mmol/L Normal 98-107 [facility] Comment on above: Performed By: #### C OVID19 FLU RSV, CEPHEID POS #### [address] CO2 [Moles/Vol] 25.3 mmol/L Normal 21.0-31.0 The [facility] Comment on above: Performed By: #### C OVID19 FLU RSV, CEPHEID POS #### [address] Creatinine [Mass/Vol] 1.99 mg/dL High 0.60-1.20 [facility] Comment on above: Performed By: #### C OVID19 FLU RSV, CEPHEID POS #### [address] Creatinine Clr Calc Pharmacy 29.98 Normal [facility] Comment on above: Performed By: #### C OVID19 FLU RSV, CEPHEID POS #### [address] Estimated GFR 25.252 mL/Min Normal The [facility] Comment on above: Performed By: #### C OVID19 FLU RSV, CEPHEID POS #### [place] [address] [place] Globulin (S) [Mass/Vol] 3.9 g/dL Normal The [facility] Comment on above: Performed By: #### C OVID19 FLU RSV, CEPHEID POS #### [address] Glucose [Mass/Vol] 228 mg/dL High 70-100 [facility] Comment on above: Result Comment: [place] Glucose Reference Range is dependent on time and content of last meal. Glucose of more than 200 mg/dL in a nonstressed, ambulatory subject supports the diagnosis of Diabetes Mellitus. ADA recommended reference range Performed By: #### C OVID19 FLU RSV, CEPHEID POS #### [address] Potassium [Moles/Vol] 5.0 mmol/L Normal 3.5-5.1 [facility] Comment on above: Performed By: #### C OVID19 FLU RSV, CEPHEID POS #### [address] Protein [Mass/Vol] 7.4 g/dL Normal 6.4-8.9 [facility] Comment on above: Performed By: #### C OVID19 FLU RSV, CEPHEID POS #### [address] Sodium [Moles/Vol] 134 mmol/L Low 136-145 [facility] Comment on above: Performed By: #### C OVID19 FLU RSV, CEPHEID POS #### [place] [address] [place] Urea nitrogen [Mass/Vol] 67 mg/dL High 7-25 [facility] Comment on above: Performed By: #### C OVID19 FLU RSV, CEPHEID POS #### [place] [address] [place] Eosinophils Auto (Bld) [#/Vo l]Ordered By: Mauri Chavira on 10-17-2024 Eosinophils (Bld) [#/Vol] Automated eosinophil count 0.0-0.45 [facility] Eosinophils/100 WBC Auto (Bl d)Ordered By: Mauri Chavira on 10-17-2024 Eosinophils/100 WBC (Bld) Automated eosinophil % . [facility] Erythrocyte distribution wid th Auto (RBC) [Ratio]Ordered By: Mauri Chavira on 10-17-2024 Erythrocyte distribution width (RBC) [Ratio] Erythrocyte distribution width [Ratio] by Automated count High 11.9-15.3 [facility] Globulin Calc (S) [Mass/Vol] Ordered By: Mauri Chavira on 10-17-2024 Globulin (S) [Mass/Vol] Serum globulin measurement by calculation (mass/volume) [facility] Glucose Poct Glucometerson 1 12-18-2023 Glucose [Mass/Vol] 245 mg/dL Normal The [facility] Comment on above: Result Comment: [place] Glucose Reference Range is dependent on time and content of last meal. Glucose of more than 200 mg/dL in a nonstressed, ambulatory subject supports the diagnosis of Diabetes Mellitus. PERFORMED BY: [place] [address] PATHOLOGIST AUTO PHONE INSTALLER MAY HYDE M.D. Performed By: #### C OVID19 FLU RSV, CEPHEID POS #### [facility] [address] [place] [address] Glucose [Mass/Vol] 335 mg/dL Normal The [facility] Comment on above: Result Comment: [facility] Glucose Reference Range is dependent on time and content of last meal. Glucose of more than 200 mg/dL in a nonstressed, ambulatory subject supports the diagnosis of Diabetes Mellitus. PERFORMED BY: [place] [address] PATHOLOGIST AUTO PHONE INSTALLER MAY HYDE M.D. Performed By: #### M G, BMP #### [facility] [address] [place] [address] Glucose [Mass/Vol] 324 mg/dL Normal [facility] Comment on above: Result Comment: [place] Glucose Reference Range is dependent on time and content of last meal. Glucose of more than 200 mg/dL in a nonstressed, ambulatory subject supports the diagnosis of Diabetes Mellitus. PERFORMED BY: [place] [address] PATHOLOGIST AUTO PHONE INSTALLER MAY HYDE M.D. Performed By: #### G LULS #### Point of Care testing , Glucose [Mass/Vol] 253 mg/dL Normal [facility] Comment on above: Result Comment: [facility] Glucose Reference Range is dependent on time and content of last meal. Glucose of more than 200 mg/dL in a nonstressed, ambulatory subject supports the diagnosis of Diabetes Mellitus. PERFORMED BY: [place] [address] PATHOLOGIST AUTO PHONE INSTALLER MAY HYDE M.D. Performed By: #### M Bela, BMP #### [address] Hematocrit Auto (Bld) [Volum e fraction]Ordered By: Mauri Chavira on 10-17-2024 Hematocrit (Bld) [Volume fraction] Hematocrit [Volume Fraction] of Blood by Automated count 34.0-46.4 [facility] Hemoglobin [Mass/volume] in BloodOrdered By: Mauri Chavira on 10-17-2024 Hemoglobin (Bld) [Mass/Vol] Hemoglobin [Mass/volume] in Blood 11.8-15.4 [facility] Leukocytes [#/volume] correc gali for nucleated erythrocytes in Blood by Automated counOrdered By: Mauri Chavira on 10-17-2024 WBC corrected for nucl RBC Auto (Bld) [#/Vol] Leukocytes [#/volume] corrected for nucleated erythrocytes in Blood by Automated coun 3.8-11.6 [facility] Lymphocytes Auto (Bld) [#/Vo l]Ordered By: Mauri Chavira on 10-17-2024 Lymphocytes (Bld) [#/Vol] Lymphocytes [#/volume] in Blood by Automated count 1.00-4.8 [facility] Lymphocytes/100 WBC Auto (Bl d)Ordered By: Mauri Chavira on 10-17-2024 Lymphocytes/100 WBC (Bld) Lymphocytes/100 leukocytes in Blood by Automated count . [facility] MCH Auto (RBC) [Entitic mass ]Ordered By: Mauri Chavira on 10-17-2024 MCH (RBC) [Entitic mass] MCH [Entitic mass] by Automated count 24.7-34.3 [facility] MCHC Auto (RBC) [Mass/Vol]Or dered By: Mauri Chavira on 10-17-2024 MCHC (RBC) [Mass/Vol] MCHC [Mass/volume] by Automated count 32.0-35.0 [facility] MCV Auto (RBC) [Entitic vol] Ordered By: Mauri Chavira on 10-17-2024 MCV (RBC) [Entitic vol] MCV [Entitic volume] by Automated count 80-100 [facility] Magnesiumon 10-17-2024 Magnesium [Mass/Vol] 1.6 mg/dL Low 1.9-2.7 [facility] Comment on above: Result Comment: PERF ORMED BY: [facility] [address] [place] [address] PATHOLOGIST AUTO PHONE INSTALLER MAY HYDE M.D. Performed By: #### C OVID19 FLU RSV, CEPHEID POS #### [facility] [address] Monocytes Auto (Bld) [#/Vol] Ordered By: Mauri Chavira on 10-17-2024 Monocytes (Bld) [#/Vol] Automated blood monocyte count 0.0-0.8 [facility] Monocytes/100 WBC Auto (Bld) Ordered By: Mauri Chavira on 10-17-2024 Monocytes/100 WBC (Bld) Automated monocyte % . [facility] Neutrophils Auto (Bld) [#/Vo l]Ordered By: Mauri Chavira on 10-17-2024 Neutrophils (Bld) [#/Vol] Neutrophils [#/volume] in Blood by Automated count 1.8-7.7 [facility] Neutrophils/100 WBC Auto (Bl d)Ordered By: Mauri Chavira on 10-17-2024 Neutrophils/100 WBC (Bld) Automated neutrophil % . [facility] Nucleated erythrocytes [Pres ence] in Blood by Automated countOrdered By: Mauri Chavira on 10-17-2024 Nucleated RBC Auto Ql (Bld) Nucleated erythrocytes [Presence] in Blood by Automated count 0-0.5 [facility] Platelet mean volume Auto (B ld) [Entitic vol]Ordered By: Mauri Chavira on 10-17-2024 Platelet mean volume (Bld) [Entitic vol] Platelet mean volume [Entitic volume] in Blood by Automated count 6.3-10.7 [facility] Platelets Auto (Bld) [#/Vol] Ordered By: Mauri Chavira on 10-17-2024 Platelets (Bld) [#/Vol] Platelets [#/volume] in Blood by Automated count 150-450 [facility] Protein [Mass/volume] in Ser um or PlasmaOrdered By: Mauri Chavira on 10-17-2024 Protein [Mass/Vol] Protein [Mass/volume ] in Serum or Plasma 6.4-8.9 [facility] RBC Auto (Bld) [#/Vol]Ordere d By: Mauri Chavira on 10-17-2024 RBC (Bld) [#/Vol] Erythrocytes [#/volu me] in Blood by Automated count 3.60-5.00 [facility] Serum or plasma albumin/glob ulin mass ratioOrdered By: Mauri Chavira on 10-17-2024 Albumin/Globulin [Mass ratio] Serum or plasma albumin/globulin mass ratio [facility] WBC Auto (Bld) [#/Vol]Ordere d By: Mauri Chavira on 10-17-2024 WBC (Bld) [#/Vol] Leukocytes [#/volume ] in Blood by Automated count 3.8-11.6 [facility] B-Type Natriuretic Peptideon 10-16-2024 Natriuretic peptide B (Bld) [Mass/Vol] 547.0 pg/mL High 5-100 [facility] Comment on above: Result Comment: PERF ORMED BY: [address] [place] [address] PATHOLOGIST AUTO PHONE INSTALLER MAY HYDE M.D. Performed By: #### A [address]C [facility] eA #### [facility] [address] [place] [address] Basic Metabolic Panelon Anion gap [Moles/Vol] 18.1 mmol/L High 6.0-15.0 Th e [facility] Comment on above: Performed By: #### M G, BMP #### [facility] [address] [place] [address] [place] Calcium [Mass/Vol] 9.7 mg/dL Significant change down 8.6-10.3 [facility] Comment on above: Performed By: #### M G, BMP #### [address] Chloride [Moles/Vol] 100 mmol/L Normal 98-107 [facility] Comment on above: Performed By: #### M G, BMP #### [address] CO2 [Moles/Vol] 23.3 mmol/L Normal 21.0-31.0 [facility] Comment on above: Performed By: #### M G, BMP #### [address] Creatinine [Mass/Vol] 2.14 mg/dL High 0.60-1.20 [facility] Comment on above: Performed By: #### M G, BMP #### [address] Creatinine Clr Calc Pharmacy 27.88 Normal [facility] Comment on above: Result Comment: PERF ORMED BY: [place] [address] PATHOLOGIST AUTO PHONE INSTALLER MAY HYDE M.D. Performed By: #### M G, BMP #### [address] Estimated GFR 23.142 mL/Min Normal [facility] Comment on above: Performed By: #### M G, BMP #### [address] Glucose [Mass/Vol] 301 mg/dL High 70-100 [facility] Comment on above: Result Comment: [place] Glucose Reference Range is dependent on time and content of last meal. Glucose of more than 200 mg/dL in a nonstressed, ambulatory subject supports the diagnosis of Diabetes Mellitus. ADA recommended reference range Performed By: #### M G, BMP #### [address] Potassium [Moles/Vol] 6.4 mmol/L Off scale high 3.5-5.1 [facility] Comment on above: Result Comment: Resu lts called at 1909 on 10/16/24 Critical Result Called to and read back by: ISMA AVILA/RENETTA at: 10/16/2024 19:04:24 by:[id number] Performed By: #### M Bela, BMP #### [facility] [address] [place] [address] [place] Sodium [Moles/Vol] 135 mmol/L Low 136-145 [facility] Comment on above: Performed By: #### M G, BMP #### [facility] [address] [place] [address] [place] Urea nitrogen [Mass/Vol] 74 mg/dL High 7-25 [facility] Comment on above: Performed By: #### M Bela, BMP #### [facility] [address] [place] [id number] [facility] Anion gap [Moles/Vol] 13.8 mmol/L Normal 6.0-15.0 [facility] Comment on above: Performed By: #### A 1C WTH eA #### [facility] [address] [place] [id number] [place] Calcium [Mass/Vol] 8.1 mg/dL Low 8.6-10.3 [facility] Comment on above: Performed By: #### A 1C WTH eA #### [facility] [address] [place] [id number] [place] Chloride [Moles/Vol] 104 mmol/L Normal 98-107 [facility] Comment on above: Performed By: #### A 1C WTH eA #### [facility] [address] [place] [phone] [place] CO2 [Moles/Vol] 21.5 mmol/L Normal 21.0-31.0 [facility] Comment on above: Performed By: #### A 1C WTH eA #### [facility] [address] [place] [phone] [place] Creatinine [Mass/Vol] 2.25 mg/dL High 0.60-1.20 [facility] Comment on above: Performed By: #### A 1C WT eA #### [address] Creatinine Clr Calc Pharmacy 5.50 Normal [facility] Comment on above: Performed By: #### A 1C WT eA #### [facility] [address] Estimated GFR 21.792 mL/Min Normal [facility] Comment on above: Performed By: #### A 1C WT eA #### [address] Glucose [Mass/Vol] 388 mg/dL High 70-100 [facility] Comment on above: Result Comment: [place] Glucose Reference Range is dependent on time and content of last meal. Glucose of more than 200 mg/dL in a nonstressed, ambulatory subject supports the diagnosis of Diabetes Mellitus. ADA recommended reference range Performed By: #### A 1C WT eA #### [address] Potassium [Moles/Vol] 6.3 mmol/L Off scale high 3.5-5.1 [facility] Comment on above: Result Comment: Crit ical Result Called to and read back by: LYNN KLINE at: 10/16/2024 14:01:43 by:[id number] Performed By: #### A 1C WT eA #### [address] Sodium [Moles/Vol] 133 mmol/L Low 136-145 [facility] Comment on above: Performed By: #### A 1C WT eA #### [address] Urea nitrogen [Mass/Vol] 73 mg/dL High 7-25 [facility] Comment on above: Performed By: #### A 1C WT eA #### [address] Blood carbon dioxide, total measurement by calculation (moles/volume)Ordered By: Kavin Escobar on 10-16-2024 CO2 Calc (Bld) [Moles/Vol] Blood carbon dioxide, total measurement by calculation (moles/volume) Low 23-29 [facility] Chloride (Bld) [Moles/Vol]Or dered By: Kavin Escobar on 10-16-2024 Chloride [Moles/Vol] Whole blood chlorid e measurement 98-109 [facility] Complete Blood Count Auto Di ffon 10-16-2024 Basophils (Bld) [#/Vol] 0.1 10*3/uL Normal 0.0-0.2 [facility] Comment on above: Result Comment: PERF ORMED BY: [place] [address] PATHOLOGIST AUTO PHONE INSTALLER MAY HYDE M.D. Performed By: #### A [facility] eA #### [address] Basophils/100 WBC (Bld) 0.7 % Normal . [facility] Comment on above: Performed By: #### A [facility] eA #### [address] Eosinophils (Bld) [#/Vol] 0.1 10*3/uL Normal 0.0-0.45 [facility] Comment on above: Performed By: #### A [facility] eA #### [address] Eosinophils/100 WBC (Bld) 0.6 % Normal . [facility] Comment on above: Performed By: #### A [facility] eA #### [address] Erythrocyte distribution width (RBC) [Ratio] 15.2 % Normal 11.9-15.3 [facility] Comment on above: Performed By: #### A [facility] eA #### [address] Hematocrit (Bld) [Volume fraction] 35.5 % Normal 34.0-46.4 [facility] Comment on above: Performed By: #### A [facility] eA #### [address] Hemoglobin (Bld) [Mass/Vol] 11.6 g/dL Low 11.8-15.4 [facility] Comment on above: Performed By: #### A [facility] eA #### [address] Lymphocytes (Bld) [#/Vol] 1.2 10*3/uL Normal 1.00-4.8 [facility] Comment on above: Performed By: #### A [facility] eA #### [address] Lymphocytes/100 WBC (Bld) 12.5 % Normal . [facility] Comment on above: Performed By: #### A [facility] eA #### [address] MCH (RBC) [Entitic mass] 29.0 pg Normal 24.7-34.3 [facility] Comment on above: Performed By: #### A [facility] eA #### [address] MCV (RBC) [Entitic vol] 89.1 fL Normal 80-100 [facility] Comment on above: Performed By: #### A [facility] eA #### [address] Mean Corpuscular HGB Conc 32.6 g/dL Normal 32.0-35.0 [facility] Comment on above: Performed By: #### A [facility] eA #### [address] Monocytes (Bld) [#/Vol] 0.7 10*3/uL Normal 0.0-0.8 [facility] Comment on above: Performed By: #### A 1C WT eA #### [address] Monocytes/100 WBC (Bld) 18.11 % Normal 0.00-20.00 [facility] Comment on above: Performed By: #### A [facility] eA #### [address] Monocytes/100 WBC (Bld) 6.8 % Normal . [facility] Comment on above: Performed By: #### A [facility] eA #### [address] Neutrophils (Bld) [#/Vol] 8.0 10*3/uL High 1.8-7.7 [facility] Comment on above: Performed By: #### A [facility] eA #### [address] Neutrophils/100 WBC (Bld) 79.4 % Normal . [facility] Comment on above: Performed By: #### A 1C WT eA #### [address] NRBC% 0.1 /100{WBC} Normal 0-0.5 The [facility] Comment on above: Performed By: #### A 1C WT eA #### [address] Platelet mean volume (Bld) [Entitic vol] 9.7 fL Normal 6.3-10.7 The [facility] Comment on above: Performed By: #### A [facility] e[place] #### [place] [address] [place] Platelets (Bld) [#/Vol] 181 10*3/uL Normal 150-450 [facility] Comment on above: Performed By: #### A 1C WT eA #### [address] RBC (Bld) [#/Vol] 3.98 10*6/uL Normal 3.60-5.00 [facility] Comment on above: Performed By: #### A 1C WT eA #### [address] WBC (Bld) [#/Vol] 10.0 10*3/uL Normal 3.8-11.6 [facility] Comment on above: Performed By: #### A 1C WT eA #### [facility] [address] [place] [address] [place] Creatine Kinaseon 10-16-2024 CK [Catalytic activity/Vol] 37 U/L Normal 30 [facility] Comment on above: Performed By: #### A [facility] eA #### [address] [address] [facility] Creatine kinase [Enzymatic a ctivity/volume] in Serum or PlasmaOrdered By: Jorge Luis Zavala on 10-16-2024 CK [Catalytic activity/Vol] Creatine kinase [Enzymatic activity/volume] in Serum or Plasma [facility] Creatinine (Bld) [Mass/Vol]O rdered By: Kavin Escobar on 10-16-2024 Creatinine [Mass/Vol] Whole blood creati nine measurement High 0.6-1.3 [facility] Comment on above: ER/ESD physician is notified/shown all ISTAT results.Critical values may be confirmed by laboratory testing ifdeemed necessary by ER attending doctor. ECG 12 lead ECGon 10-16-2024 ECG 12 lead ECG [facility] Main [place] [address] [place], [place] [id number] Electrocardiograph Report Signed Patient: Joe Call MR#: [id number] 0 : 1945 Acct:[id number] Age/Sex: 79 / F ADM Date: 10/16/24 Loc: Room: [address] [place] [address] Type: DIS IN Attending Dr: Kavin Escobar [...] Moreno MD 1 12/24/23 1516 Normal [facility] ECG 12 lead ECG [facility] Main [place] [id number] Electrocardiograph Report Signed Patient: Joe Call MR#: [id number] 0 : 1945 Acct:[id number] Age/Sex: 79 / F ADM Date: 10/16/24 Loc: 4C Room: [address] [place] [address] Type: ADM IN Attending Dr: Mauri Chavira [...] Jorge Luis Zavala DO 1925 Normal [facility] ECG 12 lead ECG [facility] Main [place] [id number] Electrocardiograph Report Signed Patient: Joe Call MR#: [id number] 0 : 1945 Acct:[id number] Age/Sex: 79 / F ADM Date: 10/16/24 Loc: Room: [address] [place] [address] Type: ADM IN Attending Dr: Mauri Chavira [...] Jorge Luis Zavala DO 1925 Normal [facility] Glucose Glucometer (BldC) [M ass/Vol]Ordered By: Kavin Escobar on 10-16-2024 Glucose [Mass/Vol] Capillary blood gluc ose measurement by glucometer (mass/volume) High 70-105 [facility] Glucose Poct Glucometerson 1 12-17-2023 Glucose [Mass/Vol] 266 mg/dL Normal [facility] Comment on above: Result Comment: [facility] Glucose Reference Range is dependent on time and content of last meal. Glucose of more than 200 mg/dL in a nonstressed, ambulatory subject supports the diagnosis of Diabetes Mellitus. PERFORMED BY: [place] [address] PATHOLOGIST AUTO PHONE INSTALLER MAY HYDE M.D. Performed By: #### Vandana Cramer BMP #### [address] Hemoglobin Calc (Bld) [Mass/ Vol]Ordered By: Kavin Escobar on 10-16-2024 Hemoglobin (Bld) [Mass/Vol] Blood hemoglobin measurement by calculation (mass/volume) 12.0-17.0 [facility] INR in Platelet poor plasma by Coagulation assayOrdered By: Jorge Luis Zavala on 10-16-2024 INR Coag (PPP) [Relative time] INR in Platelet poor plasma by Coagulation assay [facility] Comment on above: INR Therapeutic Rang [...] Chloride [Moles/Vol] 104.0 mmol/L Normal 98-109 [facility] Comment on above: Performed By: #### E RBMP #### [address] Point of Care testing , CO2 [Moles/Vol] 22 mmol/L Low 23-29 [facility] Comment on above: Performed By: #### E RBMP #### [address] Point of Care testing , Creatinine [Mass/Vol] 2.3 mg/dL High 0.6-1.3 [facility] Comment on above: Result Comment: ER/E SD physician is notified/shown all ISTAT results. Critical values may be confirmed by laboratory testing if deemed necessary by ER attending doctor. Performed By: #### E RBMP #### [address] Point of Care testing , Glucose [Mass/Vol] 390 mg/dL High 70-105 [facility] Comment on above: Result Comment: PERF ORMED BY: [place] [address] PATHOLOGIST AUTO PHONE INSTALLER MAY HYDE M.D. Performed By: #### E RBMP #### [address] Point of Care testing , Hemoglobin (Bld) [Mass/Vol] 12.2 g/dL Normal 12.0-17.0 [facility] Comment on above: Performed By: #### E RBMP #### [facility] [address] [place] [address] Point of Care testing , ISTAT Ionized Calcium 1.11 mol/L Low 1.12-1.32 [facility] Comment on above: Performed By: #### E RBMP #### [address] Point of Care testing , Potassium [Moles/Vol] 6.4 mmol/L Off scale high 3.5-4.9 [facility] Comment on above: Performed By: #### E RBMP #### [address] Point of Care testing , Sodium [Moles/Vol] 134 mmol/L Low 138-146 [facility] Comment on above: Performed By: #### E RBMP #### [address] Point of Care testing , Urea nitrogen [Mass/Vol] 69 mg/dL High 8-26 [facility] Comment on above: Performed By: #### E RBMP #### [address] Point of Care testing , ISTAT ER Chem8+ PanelOrdered By: Kavin Escobar on 10-16-2024 Hematocrit (Bld) [Volume fraction] 36.0 % Low 38.0-51.0 [facility] Comment on above: Performed By: #### E RBMP #### [address] Point of Care testing , Magnesiumon 10-16-2024 Magnesium [Mass/Vol] 1.4 mg/dL Low 1.9-2.7 [facility] Comment on above: Result Comment: PERF ORMED BY: [place] [address] PATHOLOGIST AUTO PHONE INSTALLER MAY HYDE M.D. Performed By: #### A [facility] eA #### [address] Monocyte distribution width [Entitic volume] in Blood by AutomatedOrdered By: Jorge Luis Zavala on 10-16-2024 Monocyte distribution width Auto (Bld) [Entitic vol] Monocyte distribution width [Entitic volume] in Blood by Automated 0.00-20.00 [facility] Natriuretic peptide B [Mass/ Vol]Ordered By: Jorge Luis Zavala on 10-16-2024 Natriuretic peptide B (Bld) [Mass/Vol] BNP ser/plas High 5-100 [facility] Potassium (Bld) [Moles/Vol]O rdered By: Kavin Escobar on 10-16-2024 Potassium [Moles/Vol] Whole blood potass ium measurement Critically high 3.5-4.9 [facility] Prothrombin Time INRon 10-16 INR Coag (PPP) [Relative time] 2.6 {INR} Normal [facility] Comment on above: Result [...] heart valves: 3 - 4.5 PERFORMED BY: [place] [address] PATHOLOGIST AUTO PHONE INSTALLER MAY HYDE M.D. Performed By: #### A [facility] eA #### [place] [id number] [facility] PT Coag (PPP) [Time] 28.9 s High 9.0-12.9 [facility] Comment on above: Result Comment: A he matocrit value greater than 55% may lead to inaccurate results in coagulation testing. Patients having hematocrit values >55% require a special collection tube for coagulation studies. Please contact the laboratory at [phone] for redraw instructions. Performed By: #### A [facility] eA #### [address] [place] [address] [place] Prothrombin time (PT)Ordered By: Jorge Luis Zavala on 10-16-2024 PT Coag (PPP) [Time] Prothrombin time (PT) High 9.0- 12.9 [facility] Comment on above: A hematocrit value g reater than 55% may lead to inaccurate results in coagulation testing. Patients having hematocrit values >55% require a special collection tube for coagulation studies. Please contact the laboratory at [phone] for redraw instructions. Sodium (Bld) [Moles/Vol]Orde red By: Kavin Escobar on 10-16-2024 Sodium [Moles/Vol] Whole blood sodium measurement Low 138-146 [facility] Troponin I High Sensitivityo n 10-16-2024 Troponin I High Sensitivity 9.9 pg/mL Normal 0.0-15.0 [facility] Comment on above: Result Comment: PERF ORMED BY: [address] [place] [address] PATHOLOGIST AUTO PHONE INSTALLER MAY HYDE M.D. Performed By: #### A [facility]C [facility] eA #### [facility] [address] [place] [address] Troponin I.cardiac [Mass/vol ume] in Serum or Plasma by Detection limit <= 0.01 ng/Ordered By: Jorge Lius Zavala on 10-16-2024 Troponin I.cardiac DL <= 0.01 ng/mL [Mass/Vol] Troponin I.cardiac [Mass/volume] in Serum or Plasma by Detection limit <= 0.01 ng/ 0.0-15.0 [facility] Urea nitrogen (Bld) [Mass/Vo l]Ordered By: Kavin Escobar on 10-16-2024 Urea nitrogen [Mass/Vol] Blood urea nitrogen (BUN) measurement in whole blood (mass/volume) High 8-26 [facility] Whole blood ionized calcium measurement (moles/volume)Ordered By: Kavin Escobar on 10-16-2024 Calcium.ionized (Bld) [Moles/Vol] Whole blood ionized calcium measurement (moles/volume) Low 1.12-1.32 [facility] XR chest 1V portableon 10-16 XR chest 1V portable [facility] Main [place] [address] [place] [address] XRay Report Signed Patient: Joe Call MR#: [id number] 0 : 1945 Acct:[id number] Age/Sex: 79 / F ADM Date: 10/16/24 Loc: ER Room: Type: [facility] ER Attending Dr: Copies to: Jorge [...] Jarred Randolph M.D.10/16/2024 2:10 PM Dictation Location: [place] [address] Transcribed By: [facility] 10/16/24 1410 Dictated By: Jarred Randolph DO 10/16/24 1407 Signed By: 10/16/24 1410 Normal [facility] 37on 10-08-2024 37 *Cut lisinopril in h rae to 10mg daily. *Follow-up labs in 2 weeks. *Limit fluid intake to 64oz or 2 liters a day. Normal [facility] Office Visiton 10-08-2024 Follow-up visit [id number] Joe Call 1945 F Date Provider Department Center 10/08/2024 [facility] Family History Problem Relation Age of Onset Coronary artery disease Other Diabetes Other Polycystic kidney disease Other Family Status - Relation Status Age at Other Level of Service:[address]85 [place] OFFICE/OUTPATIENT ESTABLISHED MOD MDM 30 MIN Reason for Visit and Comments: Congestive Heart Failure [127] Hypertension [727024] Atrial Fibrillation [80] Normal [facility] Estimated glomerular filtrat ion rate (GFR) non- Americanon 09-29-2024 GFR/1.73 sq M.predicted among non-blacks MDRD (S/P/Bld) [Vol rate/Area] Estimated glomerular filtration rate (GFR) non- Low >=60 mL/min/1.73 m 2 [facility] Laboratory - Chemistry and C hemistry - challengeon 09-29-2024 Calcium [Mass/Vol] 8.8 mg/dL 8.5-10.1 [facility] Chloride [Moles/Vol] 102 mmol/L 98-107 [facility] CO2 [Moles/Vol] 24.9 mmol/L 21.0-32.0 [facility] Creatinine [Mass/Vol] 1.92 mg/dL High 0.55-1.02 [facility] GFR/1.73 sq M.predicted MDRD (S/P/Bld) [Vol rate/Area] 31 mL/min/{1.73_m2} Low >=60 mL/min/1.73 m 2 [facility] Glucose [Mass/Vol] 387 mg/dL High 74-106 [facility] Potassium [Moles/Vol] 5.0 mmol/L 3.5-5.1 [facility] Sodium [Moles/Vol] 136 mmol/L 136-145 [facility] Urea nitrogen [Mass/Vol] 64.0 mg/dL High 7.0-18.0 [facility] Urea nitrogen/Creatinine [Mass ratio] 33.3 mg/mg [facility] Serum or plasma anion gap de terminationon 09-29-2024 Anion gap [Moles/Vol] Serum or plasma an ion gap determination [facility] 37on 09-03-2024 37 *Your kidney functio [...] of breath or worsening leg swelling. Normal [facility] Office Visiton 09-03-2024 Follow-up visit [id number] Joe Call 1945 Provider Department Center 09/03/2024 YAMEL OCAMPO Family History Problem Relation Age of Onset Coronary artery disease Other Diabetes Other Polycystic kidney disease Other Family Status - Relation Status Age at Other Level of Service:80963 [place] OFFICE/OUTPATIENT ESTABLISHED MOD MDM 30 MIN Reason for Visit and Comments: Congestive Heart Failure [127] Atrial Fibrillation [80] Hypertension [830482] Normal [facility] Office Visiton 08-20-2024 Follow-up visit [id number] Joe Call 1945 Provider Department Center 08/20/2024 YAMEL OCAMPO Family History Problem Relation Age of Onset Coronary artery disease Other Diabetes Other Polycystic kidney disease Other Family Status - Relation Status Age at Other Level of Service:91890 [place] OFFICE/OUTPATIENT ESTABLISHED MOD MDM 30 MIN Reason for Visit and Comments: Congestive Heart Failure [127] Normal [facility] Basophils Auto (Bld) [#/Vol] on 07-25-2024 Basophils (Bld) [#/Vol] 0.1 10 3/uL 0.0-0.1 [facility] Basophils/100 WBC Auto (Bld) on 07-25-2024 Basophils/100 WBC (Bld) 1.2 % 0.2-2.0 [facility] Eosinophils/100 WBC Auto (Bl d)on 07-25-2024 Eosinophils/100 WBC (Bld) 1.6 % 0.9-7.0 [facility] Erythrocyte distribution wid th Auto (RBC) [Ratio]on 07-25-2024 Erythrocyte distribution width (RBC) [Ratio] 13.7 % 11.0-15.0 [facility] Estimated glomerular filtrat ion rate (GFR) non- Americanon 07-25-2024 GFR/1.73 sq M.predicted among non-blacks MDRD (S/P/Bld) [Vol rate/Area] 47 mL/min/{1.73_m2} Low >=60 [facility] Globulin Calc (S) [Mass/Vol] on 07-25-2024 Globulin (S) [Mass/Vol] 4.7 g/dL [facility] Hematocrit Auto (Bld) [Volum e fraction]on 07-25-2024 Hematocrit (Bld) [Volume fraction] 33.6 % Low 36.0-48.0 [facility] Hemoglobin [Mass/volume] in Bloodon 07-25-2024 Hemoglobin (Bld) [Mass/Vol] 11.0 g/dL Low 12.0-16.0 [facility] Laboratory - Chemistry and C hemistry - challengeon 07-25-2024 Albumin [Mass/Vol] 2.3 g/dL Low 3.4-5.0 [facility] ALP [Catalytic activity/Vol] 101 U/L 46-116 [facility] ALT [Catalytic activity/Vol] 14 U/L 14-59 [facility] AST [Catalytic activity/Vol] 13 U/L Low 15-37 [facility] Bilirubin [Mass/Vol] 0.8 mg/dL 0.2-1.0 [facility] Calcium [Mass/Vol] 8.6 mg/dL 8.5-10.1 [facility] Chloride [Moles/Vol] 102 mmol/L 98-107 [facility] CO2 [Moles/Vol] 27.8 mmol/L 21.0-32.0 [facility] Creatinine [Mass/Vol] 1.13 mg/dL High 0.55-1.02 [facility] GFR/1.73 sq M.predicted MDRD (S/P/Bld) [Vol rate/Area] 56 mL/min/{1.73_m2} Low >=60 [facility] Glucose [Mass/Vol] 228 mg/dL High 74-106 [facility] Potassium [Moles/Vol] 3.7 mmol/L 3.5-5.1 [facility] Protein [Mass/Vol] 7.0 g/dL 6.4-8.2 [facility] Sodium [Moles/Vol] 140 mmol/L 136-145 [facility] Urea nitrogen [Mass/Vol] 26.0 mg/dL High 7.0-18.0 [facility] Urea nitrogen/Creatinine [Mass ratio] 23.0 mg/mg [facility] Laboratory - Hematology and Cell countson 07-25-2024 Immature granulocytes/100 WBC (Bld) 0.2 % 0.0-0.5 [facility] Leukocytes [#/volume] correc gali for nucleated erythrocytes in Blood by Automated counon 07-25-2024 WBC corrected for nucl RBC Auto (Bld) [#/Vol] 8.7 10 3/uL 4.0-11.0 [facility] Lymphocytes Auto (Bld) [#/Vo l]on 07-25-2024 Lymphocytes (Bld) [#/Vol] 1.4 10 3/uL 1.2-3.8 [facility] Lymphocytes/100 WBC Auto (Bl d)on 07-25-2024 Lymphocytes/100 WBC (Bld) 15.9 % Low 20.5-60.0 [facility] MCH Auto (RBC) [Entitic mass ]on 07-25-2024 MCH (RBC) [Entitic mass] 29.7 pg 26.7-34.0 [facility] MCHC Auto (RBC) [Mass/Vol]on 07-25-2024 MCHC (RBC) [Mass/Vol] 32.7 g/dL 29.9-35.2 [facility] MCV Auto (RBC) [Entitic vol] on 07-25-2024 MCV (RBC) [Entitic vol] 90.8 fL 81.0-99.0 [facility] Monocytes Auto (Bld) [#/Vol] on 07-25-2024 Monocytes (Bld) [#/Vol] 0.7 10 3/uL 0.3-0.8 [facility] Monocytes/100 WBC Auto (Bld) on 07-25-2024 Monocytes/100 WBC (Bld) 8.2 % 1.7-12.0 [facility] Neutrophils Auto (Bld) [#/Vo l]on 07-25-2024 Neutrophils (Bld) [#/Vol] 6.3 10 3/uL 1.4-6.5 [facility] Neutrophils/100 WBC Auto (Bl d)on 07-25-2024 Neutrophils/100 WBC (Bld) 72.9 % 43.0-75.0 [facility] No Panel Informationon 07-25 Eosinophils # (Auto) 0.1 10 3/uL 0.0-0.7 [facility] Immature Granulocyte # (Auto) 0.02 10 3/uL 0.00-0.03 [facility] Platelet mean volume Auto (B ld) [Entitic vol]on 07-25-2024 Platelet mean volume (Bld) [Entitic vol] 10.3 fL 9.5-13.5 [facility] Platelets Auto (Bld) [#/Vol] on 07-25-2024 Platelets (Bld) [#/Vol] 239 10 3/uL 150-450 [facility] RBC Auto (Bld) [#/Vol]on RBC (Bld) [#/Vol] 3.70 10 6/uL Low 4.20-5.40 [facility] Serum or plasma albumin/glob ulin mass ratioon 07-25-2024 Albumin/Globulin [Mass ratio] 0.5 {ratio} [facility] Serum or plasma anion gap de terminationon 07-25-2024 Anion gap [Moles/Vol] 13.9 mmol/L [facility] Basophils Auto (Bld) [#/Vol] on 07-24-2024 Basophils (Bld) [#/Vol] 0.1 10 3/uL 0.0-0.1 [facility] Basophils/100 WBC Auto (Bld) on 07-24-2024 Basophils/100 WBC (Bld) 0.7 % 0.2-2.0 [facility] Eosinophils/100 WBC Auto (Bl d)on 07-24-2024 Eosinophils/100 WBC (Bld) 1.7 % 0.9-7.0 [facility] Erythrocyte distribution wid th Auto (RBC) [Ratio]on 07-24-2024 Erythrocyte distribution width (RBC) [Ratio] 13.7 % 11.0-15.0 [facility] Estimated glomerular filtrat ion rate (GFR) non- Americanon 07-24-2024 GFR/1.73 sq M.predicted among non-blacks MDRD (S/P/Bld) [Vol rate/Area] 48 mL/min/{1.73_m2} Low >=60 [facility] Hematocrit Auto (Bld) [Volum e fraction]on 07-24-2024 Hematocrit (Bld) [Volume fraction] 34.5 % Low 36.0-48.0 [facility] Hemoglobin [Mass/volume] in Bloodon 07-24-2024 Hemoglobin (Bld) [Mass/Vol] 11.2 g/dL Low 12.0-16.0 [facility] Laboratory - Chemistry and C hemistry - challengeon 07-24-2024 Calcium [Mass/Vol] 8.9 mg/dL 8.5-10.1 [facility] Chloride [Moles/Vol] 104 mmol/L 98-107 [facility] CO2 [Moles/Vol] 26.1 mmol/L 21.0-32.0 [facility] Creatinine [Mass/Vol] 1.11 mg/dL High 0.55-1.02 [facility] GFR/1.73 sq M.predicted MDRD (S/P/Bld) [Vol rate/Area] 58 mL/min/{1.73_m2} Low >=60 [facility] Glucose [Mass/Vol] 247 mg/dL High 74-106 [facility] Natriuretic peptide B (Bld) [Mass/Vol] 6277.0 pg/mL High <=1800.0 [facility] Comment on above: RESULTS CALLED TO YOEL STEWARD RN IN ER BY Mira Martinez at 1430 Potassium [Moles/Vol] 4.1 mmol/L 3.5-5.1 [facility] Sodium [Moles/Vol] 141 mmol/L 136-145 [facility] Urea nitrogen [Mass/Vol] 28.0 mg/dL High 7.0-18.0 [facility] Urea nitrogen/Creatinine [Mass ratio] 25.2 mg/mg [facility] Laboratory - Hematology and Cell countson 07-24-2024 Immature granulocytes/100 WBC (Bld) 0.3 % 0.0-0.5 [facility] Leukocytes [#/volume] correc gali for nucleated erythrocytes in Blood by Automated counon 07-24-2024 WBC corrected for nucl RBC Auto (Bld) [#/Vol] 9.7 10 3/uL 4.0-11.0 [facility] Lymphocytes Auto (Bld) [#/Vo l]on 07-24-2024 Lymphocytes (Bld) [#/Vol] 0.9 10 3/uL Low 1.2-3.8 [facility] Lymphocytes/100 WBC Auto (Bl d)on 07-24-2024 Lymphocytes/100 WBC (Bld) 9.2 % Low 20.5-60.0 [facility] MCH Auto (RBC) [Entitic mass ]on 07-24-2024 MCH (RBC) [Entitic mass] 29.9 pg 26.7-34.0 [facility] MCHC Auto (RBC) [Mass/Vol]on 07-24-2024 MCHC (RBC) [Mass/Vol] 32.5 g/dL 29.9-35.2 [facility] MCV Auto (RBC) [Entitic vol] on 07-24-2024 MCV (RBC) [Entitic vol] 92.0 fL 81.0-99.0 [facility] Monocytes Auto (Bld) [#/Vol] on 07-24-2024 Monocytes (Bld) [#/Vol] 0.5 10 3/uL 0.3-0.8 [facility] Monocytes/100 WBC Auto (Bld) on 07-24-2024 Monocytes/100 WBC (Bld) 5.3 % 1.7-12.0 [facility] Neutrophils Auto (Bld) [#/Vo l]on 07-24-2024 Neutrophils (Bld) [#/Vol] 8.0 10 3/uL High 1.4-6.5 [facility] Neutrophils/100 WBC Auto (Bl d)on 07-24-2024 Neutrophils/100 WBC (Bld) 82.8 % High 43.0-75.0 [facility] No Panel Informationon 07-24 Eosinophils # (Auto) 0.2 10 3/uL 0.0-0.7 [facility] Immature Granulocyte # (Auto) 0.03 10 3/uL 0.00-0.03 [facility] Troponin I High Sensitivity 20.5 pg/mL 4.0-51.3 [facility] Comment on above: CUT-OFF POINTS HAVE [...] volume (Bld) [Entitic vol] 10.4 fL 9.5-13.5 [facility] Platelets Auto (Bld) [#/Vol] on 07-24-2024 Platelets (Bld) [#/Vol] 236 10 3/uL 150-450 [facility] RBC Auto (Bld) [#/Vol]on RBC (Bld) [#/Vol] 3.75 10 6/uL Low 4.20-5.40 [facility] Serum or plasma anion gap de terminationon 07-24-2024 Anion gap [Moles/Vol] 15.0 mmol/L [facility] Urine Cultureon 07-17-2024 Bacteria identified Cx Nom (U) ORGANISM: Citrobacter freundii complex (O:CITFRC) [place] Count >100,000 ORGANISM: Proteus mirabilis (O:PROMIR) [place] Count 20,000 Aerobic MIRTHA Charge (NMIC56) - [...] RESISTANT TO ALL B-LACTAM DRUGS. PERFORMED BY: [place] [id number] PATHOLOGIST AUTO PHONE INSTALLER CHOLO YEAGER M.D. Normal [facility] Comment on above: Performed By: #### A [facility] eA #### [address] Urine culture routineOrdered By: Shantel Steven on 07-17-2024 Bacteria identified Cx Nom (U) Proteus mirabilis Abnormal [facility] Erythrocyte distribution wid th Auto (RBC) [Ratio]on 07-15-2024 Erythrocyte distribution width (RBC) [Ratio] 13.3 % 11.0-15.0 [facility] Estimated glomerular filtrat ion rate (GFR) non- Americanon 07-15-2024 GFR/1.73 sq M.predicted among non-blacks MDRD (S/P/Bld) [Vol rate/Area] 47 mL/min/{1.73_m2} Low >=60 [facility] Globulin Calc (S) [Mass/Vol] on 07-15-2024 Globulin (S) [Mass/Vol] 4.2 g/dL [facility] Hematocrit Auto (Bld) [Volum e fraction]on 07-15-2024 Hematocrit (Bld) [Volume fraction] 34.9 % Low 36.0-48.0 [facility] Hemoglobin [Mass/volume] in Bloodon 07-15-2024 Hemoglobin (Bld) [Mass/Vol] 11.6 g/dL Low 12.0-16.0 [facility] Laboratory - Chemistry and C hemistry - challengeon 07-15-2024 Bilirubin Ql (U) Negative NEGATIVE [facility] Glucose (U) [Mass/Vol] Negative NEGATIVE [facility] Ketones Ql (U) Negative NEGATIVE [facility] pH (U) 6.5 [pH] 5.0-9.0 [facility] Specific gravity (U) [Rel density] 1.020 1.005-1.025 [facility] Urobilinogen Qn (U) 0.2 {Meka'U}/dL 0.2-1.0 [facility] Albumin [Mass/Vol] 2.6 g/dL Low 3.4-5.0 [facility] ALP [Catalytic activity/Vol] 87 U/L 46-116 [facility] ALT [Catalytic activity/Vol] 18 U/L 14-59 [facility] AST [Catalytic activity/Vol] 14 U/L Low 15-37 [facility] Bilirubin [Mass/Vol] 0.6 mg/dL 0.2-1.0 [facility] Calcium [Mass/Vol] 8.6 mg/dL 8.5-10.1 [facility] Chloride [Moles/Vol] 101 mmol/L 98-107 [facility] CO2 [Moles/Vol] 31.4 mmol/L 21.0-32.0 [facility] Creatinine [Mass/Vol] 1.12 mg/dL High 0.55-1.02 [facility] GFR/1.73 sq M.predicted MDRD (S/P/Bld) [Vol rate/Area] 57 mL/min/{1.73_m2} Low >=60 [facility] Glucose [Mass/Vol] 153 mg/dL High 74-106 [facility] Natriuretic peptide B (Bld) [Mass/Vol] 3410.0 pg/mL High <=1800.0 [facility] Comment on above: RESULTS CALLED TO Bogdan Robin RN at 0840 Potassium [Moles/Vol] 3.6 mmol/L 3.5-5.1 [facility] Protein [Mass/Vol] 6.8 g/dL 6.4-8.2 [facility] Sodium [Moles/Vol] 141 mmol/L 136-145 [facility] Urea nitrogen [Mass/Vol] 43.0 mg/dL High 7.0-18.0 [facility] Urea nitrogen/Creatinine [Mass ratio] 38.4 mg/mg [facility] Laboratory - Specimen inform ationon 07-15-2024 Appearance (U) CLEAR CLEAR [facility] Color (U) LT. YELLOW YELLOW [facility] Laboratory - Urinalysison Leukocyte esterase Test strip Ql (U) Negative NEGATIVE [facility] Mucus Ql (Urine sed) NONE SEEN NONE SEEN [facility] Nitrite Ql (U) Negative NEGATIVE [facility] Protein Ql (U) 100 mg/dL Abnormal NEG/TRACE [facility] Leukocytes [#/volume] correc gali for nucleated erythrocytes in Blood by Automated counon 07-15-2024 WBC corrected for nucl RBC Auto (Bld) [#/Vol] 8.5 10 3/uL 4.0-11.0 [facility] MCH Auto (RBC) [Entitic mass ]on 07-15-2024 MCH (RBC) [Entitic mass] 29.9 pg 26.7-34.0 [facility] MCHC Auto (RBC) [Mass/Vol]on 07-15-2024 MCHC (RBC) [Mass/Vol] 33.2 g/dL 29.9-35.2 [facility] MCV Auto (RBC) [Entitic vol] on 07-15-2024 MCV (RBC) [Entitic vol] 89.9 fL 81.0-99.0 [facility] No Panel Informationon 07-15 Urine Bacteria NONE SEEN #/HPF NONE SEEN [facility] Urine Occult Blood TRACE-I NEGATIVE [facility] Urine RBC 0-2 #/HPF 0-2 [facility] Urine Squamous Epithelial Cells FEW #/LPF Abnormal NONE/RARE [facility] Urine WBC NONE SEEN #/HPF NONE SEEN [facility] NONE SEEN #/HPF NONE SEEN [facility] Negative NEGATIVE [facility] TRACE-I NEGATIVE [facility] CLEAR CLEAR [facility] LT. YELLOW YELLOW [facility] NONE SEEN NONE SEEN [facility] 6.5 5.0-9.0 [facility] 100 mg/dL Abnormal NEG/TRACE [facility] 0-2 #/HPF 0-2 [facility] 1.020 1.005-1.025 [facility] FEW #/LPF Abnormal NONE/RARE [facility] 0.2 EU/dL 0.2-1.0 [facility] Troponin I High Sensitivity 21.3 pg/mL 4.0-51.3 [facility] Comment on above: CUT-OFF POINTS HAVE [...] AND CLINICAL INFORMATION. 3410.0 pg/mL High <=1800.0 [facility] 21.3 pg/mL 4.0-51.3 [facility] 2.6 g/dL Low 3.4-5.0 [facility] 87 U/L 46-116 [facility] 18 U/L 14-59 [facility] 14 U/L Low 15-37 [facility] 38.4 [facility] 43.0 mg/dL High 7.0-18.0 [facility] 8.6 mg/dL 8.5-10.1 [facility] 101 mmol/L 98-107 [facility] 31.4 mmol/L 21.0-32.0 [facility] 1.12 mg/dL High 0.55-1.02 [facility] 57 Low >=60 [facility] 153 mg/dL High 74-106 [facility] 3.6 mmol/L 3.5-5.1 [facility] 141 mmol/L 136-145 [facility] 0.6 mg/dL 0.2-1.0 [facility] 6.8 g/dL 6.4-8.2 [facility] Platelet mean volume Auto (B ld) [Entitic vol]on 07-15-2024 Platelet mean volume (Bld) [Entitic vol] 11.0 fL 9.5-13.5 [facility] Platelets Auto (Bld) [#/Vol] on 07-15-2024 Platelets (Bld) [#/Vol] 177 10 3/uL 150-450 [facility] RBC Auto (Bld) [#/Vol]on RBC (Bld) [#/Vol] 3.88 10 6/uL Low 4.20-5.40 [facility] Serum or plasma albumin/glob ulin mass ratioon 07-15-2024 Albumin/Globulin [Mass ratio] 0.6 {ratio} [facility] Serum or plasma anion gap de terminationon 07-15-2024 Anion gap [Moles/Vol] 12.2 mmol/L [facility] Basophils Auto (Bld) [#/Vol] on 07-14-2024 Basophils (Bld) [#/Vol] 0.1 10 3/uL 0.0-0.1 [facility] Basophils/100 WBC Auto (Bld) on 07-14-2024 Basophils/100 WBC (Bld) 0.9 % 0.2-2.0 [facility] Eosinophils/100 WBC Auto (Bl d)on 07-14-2024 Eosinophils/100 WBC (Bld) 1.3 % 0.9-7.0 [facility] Erythrocyte distribution wid th Auto (RBC) [Ratio]on 07-14-2024 Erythrocyte distribution width (RBC) [Ratio] 13.5 % 11.0-15.0 [facility] Estimated glomerular filtrat ion rate (GFR) non- Americanon 07-14-2024 GFR/1.73 sq M.predicted among non-blacks MDRD (S/P/Bld) [Vol rate/Area] 30 mL/min/{1.73_m2} Low >=60 [facility] Hematocrit Auto (Bld) [Volum e fraction]on 07-14-2024 Hematocrit (Bld) [Volume fraction] 38.5 % 36.0-48.0 [facility] Hemoglobin [Mass/volume] in Bloodon 07-14-2024 Hemoglobin (Bld) [Mass/Vol] 12.8 g/dL 12.0-16.0 [facility] Laboratory - Chemistry and C hemistry - challengeon 07-14-2024 Calcium [Mass/Vol] 9.0 mg/dL 8.5-10.1 [facility] Chloride [Moles/Vol] 96 mmol/L Low 98-107 [facility] CO2 [Moles/Vol] 35.5 mmol/L High 21.0-32.0 [facility] Creatinine [Mass/Vol] 1.65 mg/dL High 0.55-1.02 [facility] GFR/1.73 sq M.predicted MDRD (S/P/Bld) [Vol rate/Area] 36 mL/min/{1.73_m2} Low >=60 [facility] Glucose [Mass/Vol] 458 mg/dL High 74-106 [facility] Potassium [Moles/Vol] 4.0 mmol/L 3.5-5.1 [facility] Sodium [Moles/Vol] 135 mmol/L Low 136-145 [facility] Urea nitrogen [Mass/Vol] 52.0 mg/dL High 7.0-18.0 [facility] Urea nitrogen/Creatinine [Mass ratio] 31.5 mg/mg [facility] Laboratory - Hematology and Cell countson 07-14-2024 Immature granulocytes/100 WBC (Bld) 0.1 % 0.0-0.5 [facility] Leukocytes [#/volume] correc gali for nucleated erythrocytes in Blood by Automated counon 07-14-2024 WBC corrected for nucl RBC Auto (Bld) [#/Vol] 8.2 10 3/uL 4.0-11.0 [facility] Lymphocytes Auto (Bld) [#/Vo l]on 07-14-2024 Lymphocytes (Bld) [#/Vol] 1.1 10 3/uL Low 1.2-3.8 [facility] Lymphocytes/100 WBC Auto (Bl d)on 07-14-2024 Lymphocytes/100 WBC (Bld) 13.7 % Low 20.5-60.0 [facility] MCH Auto (RBC) [Entitic mass ]on 07-14-2024 MCH (RBC) [Entitic mass] 30.0 pg 26.7-34.0 [facility] MCHC Auto (RBC) [Mass/Vol]on 07-14-2024 MCHC (RBC) [Mass/Vol] 33.2 g/dL 29.9-35.2 [facility] MCV Auto (RBC) [Entitic vol] on 07-14-2024 MCV (RBC) [Entitic vol] 90.2 fL 81.0-99.0 [facility] Monocytes Auto (Bld) [#/Vol] on 07-14-2024 Monocytes (Bld) [#/Vol] 0.5 10 3/uL 0.3-0.8 [facility] Monocytes/100 WBC Auto (Bld) on 07-14-2024 Monocytes/100 WBC (Bld) 6.6 % 1.7-12.0 [facility] Neutrophils Auto (Bld) [#/Vo l]on 07-14-2024 Neutrophils (Bld) [#/Vol] 6.3 10 3/uL 1.4-6.5 [facility] Neutrophils/100 WBC Auto (Bl d)on 07-14-2024 Neutrophils/100 WBC (Bld) 77.4 % High 43.0-75.0 [facility] No Panel Informationon 07-14 Eosinophils # (Auto) 0.1 10 3/uL 0.0-0.7 [facility] Immature Granulocyte # (Auto) 0.01 10 3/uL 0.00-0.03 [facility] Troponin I High Sensitivity 17.9 pg/mL 4.0-51.3 [facility] Comment on above: CUT-OFF POINTS HAVE [...] DIAGNOSTIC AND CLINICAL INFORMATION. 17.9 pg/mL 4.0-51.3 [facility] 31.5 [facility] 0.1 10 3/uL 0.0-0.7 [facility] 52.0 mg/dL High 7.0-18.0 [facility] 9.0 mg/dL 8.5-10.1 [facility] 96 mmol/L Low 98-107 [facility] 35.5 mmol/L High 21.0-32.0 [facility] 0.01 10 3/uL 0.00-0.03 [facility] 1.65 mg/dL High 0.55-1.02 [facility] 0.1 % 0.0-0.5 [facility] 36 Low >=60 [facility] 458 mg/dL High 74-106 [facility] 4.0 mmol/L 3.5-5.1 [facility] 135 mmol/L Low 136-145 [facility] Platelet mean volume Auto (B ld) [Entitic vol]on 07-14-2024 Platelet mean volume (Bld) [Entitic vol] 11.0 fL 9.5-13.5 [facility] Platelets Auto (Bld) [#/Vol] on 07-14-2024 Platelets (Bld) [#/Vol] 182 10 3/uL 150-450 [facility] RBC Auto (Bld) [#/Vol]on RBC (Bld) [#/Vol] 4.27 10 6/uL 4.20-5.40 [facility] Serum or plasma anion gap de terminationon 07-14-2024 Anion gap [Moles/Vol] 7.5 mmol/L [facility] Estimated glomerular filtrat ion rate (GFR) non- Americanon 06-24-2024 GFR/1.73 sq M.predicted among non-blacks MDRD (S/P/Bld) [Vol rate/Area] 38 mL/min/{1.73_m2} Low >=60 [facility] Laboratory - Chemistry and C hemistry - challengeon 06-24-2024 Calcium [Mass/Vol] 8.4 mg/dL Low 8.5-10.1 [facility] Chloride [Moles/Vol] 100 mmol/L 98-107 [facility] CO2 [Moles/Vol] 31.1 mmol/L 21.0-32.0 [facility] Creatinine [Mass/Vol] 1.34 mg/dL High 0.55-1.02 [facility] GFR/1.73 sq M.predicted MDRD (S/P/Bld) [Vol rate/Area] 46 mL/min/{1.73_m2} Low >=60 [facility] Glucose [Mass/Vol] 222 mg/dL High 74-106 [facility] Potassium [Moles/Vol] 3.6 mmol/L 3.5-5.1 [facility] Sodium [Moles/Vol] 138 mmol/L 136-145 [facility] Urea nitrogen [Mass/Vol] 32.0 mg/dL High 7.0-18.0 [facility] Urea nitrogen/Creatinine [Mass ratio] 23.9 mg/mg [facility] No Panel Informationon 06-24 23.9 [facility] 32.0 mg/dL High 7.0-18.0 [facility] 8.4 mg/dL Low 8.5-10.1 [facility] 100 mmol/L 98-107 [facility] 31.1 mmol/L 21.0-32.0 [facility] 1.34 mg/dL High 0.55-1.02 [facility] 46 Low >=60 [facility] 222 mg/dL High 74-106 [facility] 3.6 mmol/L 3.5-5.1 [facility] 138 mmol/L 136-145 [facility] Serum or plasma anion gap de terminationon 06-24-2024 Anion gap [Moles/Vol] 10.5 mmol/L [facility] Basophils Auto (Bld) [#/Vol] on 06-10-2024 Basophils (Bld) [#/Vol] 0.1 10 3/uL 0.0-0.1 [facility] Basophils/100 WBC Auto (Bld) on 06-10-2024 Basophils/100 WBC (Bld) 1.0 % 0.2-2.0 [facility] Eosinophils/100 WBC Auto (Bl d)on 06-10-2024 Eosinophils/100 WBC (Bld) 1.3 % 0.9-7.0 [facility] Erythrocyte distribution wid th Auto (RBC) [Ratio]on 06-10-2024 Erythrocyte distribution width (RBC) [Ratio] 14.6 % 11.0-15.0 [facility] Estimated glomerular filtrat ion rate (GFR) non- Americanon 06-10-2024 GFR/1.73 sq M.predicted among non-blacks MDRD (S/P/Bld) [Vol rate/Area] 54 mL/min/{1.73_m2} Low >=60 [facility] Globulin Calc (S) [Mass/Vol] on 06-10-2024 Globulin (S) [Mass/Vol] 4.5 g/dL [facility] Hematocrit Auto (Bld) [Volum e fraction]on 06-10-2024 Hematocrit (Bld) [Volume fraction] 36.8 % 36.0-48.0 [facility] Hemoglobin [Mass/volume] in Bloodon 06-10-2024 Hemoglobin (Bld) [Mass/Vol] 12.1 g/dL 12.0-16.0 [facility] Laboratory - Chemistry and C hemistry - challengeon 06-10-2024 Albumin [Mass/Vol] 2.4 g/dL Low 3.4-5.0 [facility] ALP [Catalytic activity/Vol] 94 U/L 46-116 [facility] ALT [Catalytic activity/Vol] 13 U/L Low 14-59 [facility] AST [Catalytic activity/Vol] 13 U/L Low 15-37 [facility] Bilirubin [Mass/Vol] 0.9 mg/dL 0.2-1.0 [facility] Calcium [Mass/Vol] 8.9 mg/dL 8.5-10.1 [facility] Chloride [Moles/Vol] 101 mmol/L 98-107 [facility] CO2 [Moles/Vol] 29.4 mmol/L 21.0-32.0 [facility] Creatinine [Mass/Vol] 1.00 mg/dL 0.55-1.02 [facility] GFR/1.73 sq M.predicted MDRD (S/P/Bld) [Vol rate/Area] mL/min/{1.73_m2} >=60 [facility] Glucose [Mass/Vol] 167 mg/dL High 74-106 [facility] Potassium [Moles/Vol] 3.4 mmol/L Low 3.5-5.1 [facility] Protein [Mass/Vol] 6.9 g/dL 6.4-8.2 [facility] Sodium [Moles/Vol] 136 mmol/L 136-145 [facility] Urea nitrogen [Mass/Vol] 24.0 mg/dL High 7.0-18.0 [facility] Urea nitrogen/Creatinine [Mass ratio] 24.0 mg/mg [facility] Laboratory - Hematology and Cell countson 06-10-2024 Immature granulocytes/100 WBC (Bld) 0.3 % 0.0-0.5 [facility] Leukocytes [#/volume] correc gali for nucleated erythrocytes in Blood by Automated counon 06-10-2024 WBC corrected for nucl RBC Auto (Bld) [#/Vol] 7.9 10 3/uL 4.0-11.0 [facility] Lymphocytes Auto (Bld) [#/Vo l]on 06-10-2024 Lymphocytes (Bld) [#/Vol] 1.3 10 3/uL 1.2-3.8 [facility] Lymphocytes/100 WBC Auto (Bl d)on 06-10-2024 Lymphocytes/100 WBC (Bld) 16.8 % Low 20.5-60.0 [facility] MCH Auto (RBC) [Entitic mass ]on 06-10-2024 MCH (RBC) [Entitic mass] 29.8 pg 26.7-34.0 [facility] MCHC Auto (RBC) [Mass/Vol]on 06-10-2024 MCHC (RBC) [Mass/Vol] 32.9 g/dL 29.9-35.2 [facility] MCV Auto (RBC) [Entitic vol] on 06-10-2024 MCV (RBC) [Entitic vol] 90.6 fL 81.0-99.0 [facility] Monocytes Auto (Bld) [#/Vol] on 06-10-2024 Monocytes (Bld) [#/Vol] 0.8 10 3/uL 0.3-0.8 [facility] Monocytes/100 WBC Auto (Bld) on 06-10-2024 Monocytes/100 WBC (Bld) 9.8 % 1.7-12.0 [facility] Neutrophils Auto (Bld) [#/Vo l]on 06-10-2024 Neutrophils (Bld) [#/Vol] 5.6 10 3/uL 1.4-6.5 [facility] Neutrophils/100 WBC Auto (Bl d)on 06-10-2024 Neutrophils/100 WBC (Bld) 70.8 % 43.0-75.0 [facility] No Panel Informationon 06-10 Eosinophils # (Auto) 0.1 10 3/uL 0.0-0.7 [facility] Immature Granulocyte # (Auto) 0.02 10 3/uL 0.00-0.03 [facility] 2.4 g/dL Low 3.4-5.0 [facility] 0.1 10 3/uL 0.0-0.7 [facility] 94 U/L 46-116 [facility] 13 U/L Low 15-37 [facility] 24.0 [facility] 0.02 10 3/uL 0.00-0.03 [facility] 24.0 mg/dL High 7.0-18.0 [facility] 0.3 % 0.0-0.5 [facility] 8.9 mg/dL 8.5-10.1 [facility] 101 mmol/L 98-107 [facility] 29.4 mmol/L 21.0-32.0 [facility] 1.00 mg/dL 0.55-1.02 [facility] >60 >=60 [facility] 167 mg/dL High 74-106 [facility] 3.4 mmol/L Low 3.5-5.1 [facility] 136 mmol/L 136-145 [facility] 0.9 mg/dL 0.2-1.0 [facility] 6.9 g/dL 6.4-8.2 [facility] Platelet mean volume Auto (B ld) [Entitic vol]on 06-10-2024 Platelet mean volume (Bld) [Entitic vol] 11.2 fL 9.5-13.5 [facility] Platelets Auto (Bld) [#/Vol] on 06-10-2024 Platelets (Bld) [#/Vol] 189 10 3/uL 150-450 [facility] RBC Auto (Bld) [#/Vol]on RBC (Bld) [#/Vol] 4.06 10 6/uL Low 4.20-5.40 [facility] Serum or plasma albumin/glob ulin mass ratioon 06-10-2024 Albumin/Globulin [Mass ratio] 0.5 {ratio} [facility] Serum or plasma anion gap de terminationon 06-10-2024 Anion gap [Moles/Vol] 9.0 mmol/L [facility] Basophils Auto (Bld) [#/Vol] on 06-09-2024 Basophils (Bld) [#/Vol] 0.1 10 3/uL 0.0-0.1 [facility] Basophils/100 WBC Auto (Bld) on 06-09-2024 Basophils/100 WBC (Bld) 1.0 % 0.2-2.0 [facility] Eosinophils/100 WBC Auto (Bl d)on 06-09-2024 Eosinophils/100 WBC (Bld) 1.5 % 0.9-7.0 [facility] Erythrocyte distribution wid th Auto (RBC) [Ratio]on 06-09-2024 Erythrocyte distribution width (RBC) [Ratio] 14.8 % 11.0-15.0 [facility] Estimated glomerular filtrat ion rate (GFR) non- Americanon 06-09-2024 GFR/1.73 sq M.predicted among non-blacks MDRD (S/P/Bld) [Vol rate/Area] mL/min/{1.73_m2} >=60 [facility] Fibrin D-dimer [Presence] in Platelet poor plasma by Latex agglutinationon 06-09-2024 Fibrin D-dimer LA Ql (PPP) 0.39 mg/L FEU <=0.59 [facility] Comment on above: Increases in D-Dimer [...] on 06-09-2024 Globulin (S) [Mass/Vol] 4.8 g/dL [facility] Hematocrit Auto (Bld) [Volum e fraction]on 06-09-2024 Hematocrit (Bld) [Volume fraction] 37.7 % 36.0-48.0 [facility] Hemoglobin [Mass/volume] in Bloodon 06-09-2024 Hemoglobin (Bld) [Mass/Vol] 12.5 g/dL 12.0-16.0 [facility] Laboratory - Chemistry and C hemistry - challengeon 06-09-2024 Albumin [Mass/Vol] 2.5 g/dL Low 3.4-5.0 [facility] ALP [Catalytic activity/Vol] 86 U/L 46-116 [facility] ALT [Catalytic activity/Vol] 18 U/L 14-59 [facility] AST [Catalytic activity/Vol] 34 U/L 15-37 [facility] Bilirubin [Mass/Vol] 0.8 mg/dL 0.2-1.0 [facility] Calcium [Mass/Vol] 8.6 mg/dL 8.5-10.1 [facility] Chloride [Moles/Vol] 103 mmol/L 98-107 [facility] CO2 [Moles/Vol] 27.1 mmol/L 21.0-32.0 [facility] Creatinine [Mass/Vol] 0.88 mg/dL 0.55-1.02 [facility] GFR/1.73 sq M.predicted MDRD (S/P/Bld) [Vol rate/Area] mL/min/{1.73_m2} >=60 [facility] Glucose [Mass/Vol] 142 mg/dL High 74-106 [facility] Lipase [Catalytic activity/Vol] 45.0 U/L 16.0-77.0 [facility] Natriuretic peptide B (Bld) [Mass/Vol] 3488.0 pg/mL High <=1800.0 [facility] Comment on above: RESULTS CALLED TO MAIDA MCGOWAN RN @BY Alla Kevin [phone] Potassium [Moles/Vol] 5.0 mmol/L 3.5-5.1 [facility] Protein [Mass/Vol] 7.3 g/dL 6.4-8.2 [facility] Sodium [Moles/Vol] 135 mmol/L Low 136-145 [facility] Urea nitrogen [Mass/Vol] 28.0 mg/dL High 7.0-18.0 [facility] Urea nitrogen/Creatinine [Mass ratio] 31.8 mg/mg [facility] Laboratory - Hematology and Cell countson 06-09-2024 Immature granulocytes/100 WBC (Bld) 0.3 % 0.0-0.5 [facility] Laboratory - Microbiology an d Antimicrobial susceptibilityon 06-09-2024 SARS-CoV-2 (COVID-19) RNA FERN+probe Ql (Unsp spec) Negative NEGATIVE [facility] Comment on above: This test has [...] diagnosis of Covid-19 under section 564(b)(1) of the[facility], 21 [place] 360bbb-3(b)(1), unless the declaration isterminated or authorization is revoked sooner. Leukocytes [#/volume] correc gali for nucleated erythrocytes in Blood by Automated counon 06-09-2024 WBC corrected for nucl RBC Auto (Bld) [#/Vol] 8.9 10 3/uL 4.0-11.0 [facility] Lymphocytes Auto (Bld) [#/Vo l]on 06-09-2024 Lymphocytes (Bld) [#/Vol] 1.3 10 3/uL 1.2-3.8 [facility] Lymphocytes/100 WBC Auto (Bl d)on 06-09-2024 Lymphocytes/100 WBC (Bld) 15.1 % Low 20.5-60.0 [facility] MCH Auto (RBC) [Entitic mass ]on 06-09-2024 MCH (RBC) [Entitic mass] 30.3 pg 26.7-34.0 [facility] MCHC Auto (RBC) [Mass/Vol]on 06-09-2024 MCHC (RBC) [Mass/Vol] 33.2 g/dL 29.9-35.2 [facility] MCV Auto (RBC) [Entitic vol] on 06-09-2024 MCV (RBC) [Entitic vol] 91.5 fL 81.0-99.0 [facility] Monocytes Auto (Bld) [#/Vol] on 06-09-2024 Monocytes (Bld) [#/Vol] 0.7 10 3/uL 0.3-0.8 [facility] Monocytes/100 WBC Auto (Bld) on 06-09-2024 Monocytes/100 WBC (Bld) 7.9 % 1.7-12.0 [facility] Neutrophils Auto (Bld) [#/Vo l]on 06-09-2024 Neutrophils (Bld) [#/Vol] 6.6 10 3/uL High 1.4-6.5 [facility] Neutrophils/100 WBC Auto (Bl d)on 06-09-2024 Neutrophils/100 WBC (Bld) 74.2 % 43.0-75.0 [facility] No Panel Informationon 06-09 Negative NEGATIVE [facility] Eosinophils # (Auto) 0.1 10 3/uL 0.0-0.7 [facility] Immature Granulocyte # (Auto) 0.03 10 3/uL 0.00-0.03 [facility] Troponin I High Sensitivity 17.0 pg/mL 4.0-51.3 [facility] Comment on above: CUT-OFF POINTS HAVE [...] AND CLINICAL INFORMATION. 3488.0 pg/mL High <=1800.0 [facility] 45.0 U/L 16.0-77.0 [facility] 17.0 pg/mL 4.0-51.3 [facility] 2.5 g/dL Low 3.4-5.0 [facility] 0.1 10 3/uL 0.0-0.7 [facility] 86 U/L 46-116 [facility] 18 U/L 14-59 [facility] 34 U/L 15-37 [facility] 31.8 [facility] 0.03 10 3/uL 0.00-0.03 [facility] 28.0 mg/dL High 7.0-18.0 [facility] 0.3 % 0.0-0.5 [facility] 8.6 mg/dL 8.5-10.1 [facility] 103 mmol/L 98-107 [facility] 27.1 mmol/L 21.0-32.0 [facility] 0.88 mg/dL 0.55-1.02 [facility] >60 >=60 [facility] 142 mg/dL High 74-106 [facility] 5.0 mmol/L 3.5-5.1 [facility] 135 mmol/L Low 136-145 [facility] 0.8 mg/dL 0.2-1.0 [facility] 7.3 g/dL 6.4-8.2 [facility] Platelet mean volume Auto (B ld) [Entitic vol]on 06-09-2024 Platelet mean volume (Bld) [Entitic vol] 12.4 fL 9.5-13.5 [facility] Platelets Auto (Bld) [#/Vol] on 06-09-2024 Platelets (Bld) [#/Vol] 205 10 3/uL 150-450 [facility] RBC Auto (Bld) [#/Vol]on RBC (Bld) [#/Vol] 4.12 10 6/uL Low 4.20-5.40 [facility] Serum or plasma albumin/glob ulin mass ratioon 06-09-2024 Albumin/Globulin [Mass ratio] 0.5 {ratio} [facility] Serum or plasma anion gap de terminationon 06-09-2024 Anion gap [Moles/Vol] 9.9 mmol/L [facility] Basophils Auto (Bld) [#/Vol] on 06-01-2024 Basophils (Bld) [#/Vol] 0.1 10 3/uL 0.0-0.1 [facility] Basophils/100 WBC Auto (Bld) on 06-01-2024 Basophils/100 WBC (Bld) 0.9 % 0.2-2.0 [facility] Eosinophils/100 WBC Auto (Bl d)on 06-01-2024 Eosinophils/100 WBC (Bld) 1.2 % 0.9-7.0 [facility] Erythrocyte distribution wid th Auto (RBC) [Ratio]on 06-01-2024 Erythrocyte distribution width (RBC) [Ratio] 14.1 % 11.0-15.0 [facility] Estimated glomerular filtrat ion rate (GFR) non- Americanon 06-01-2024 GFR/1.73 sq M.predicted among non-blacks MDRD (S/P/Bld) [Vol rate/Area] 47 mL/min/{1.73_m2} Low >=60 [facility] Globulin Calc (S) [Mass/Vol] on 06-01-2024 Globulin (S) [Mass/Vol] 4.4 g/dL [facility] Hematocrit Auto (Bld) [Volum e fraction]on 06-01-2024 Hematocrit (Bld) [Volume fraction] 37.6 % 36.0-48.0 [facility] Hemoglobin [Mass/volume] in Bloodon 06-01-2024 Hemoglobin (Bld) [Mass/Vol] 12.5 g/dL 12.0-16.0 [facility] Laboratory - Chemistry and C hemistry - challengeon 06-01-2024 Albumin [Mass/Vol] 2.7 g/dL Low 3.4-5.0 [facility] ALP [Catalytic activity/Vol] 87 U/L 46-116 [facility] ALT [Catalytic activity/Vol] 18 U/L 14-59 [facility] AST [Catalytic activity/Vol] 16 U/L 15-37 [facility] Bilirubin [Mass/Vol] 0.5 mg/dL 0.2-1.0 [facility] Calcium [Mass/Vol] 8.7 mg/dL 8.5-10.1 [facility] Chloride [Moles/Vol] 101 mmol/L 98-107 [facility] CO2 [Moles/Vol] 28.9 mmol/L 21.0-32.0 [facility] Creatinine [Mass/Vol] 1.12 mg/dL High 0.55-1.02 [facility] GFR/1.73 sq M.predicted MDRD (S/P/Bld) [Vol rate/Area] 57 mL/min/{1.73_m2} Low >=60 [facility] Glucose [Mass/Vol] 232 mg/dL High 74-106 [facility] Potassium [Moles/Vol] 4.1 mmol/L 3.5-5.1 [facility] Protein [Mass/Vol] 7.1 g/dL 6.4-8.2 [facility] Sodium [Moles/Vol] 137 mmol/L 136-145 [facility] Urea nitrogen [Mass/Vol] 23.0 mg/dL High 7.0-18.0 [facility] Urea nitrogen/Creatinine [Mass ratio] 20.5 mg/mg [facility] Laboratory - Hematology and Cell countson 06-01-2024 Immature granulocytes/100 WBC (Bld) 0.2 % 0.0-0.5 [facility] Leukocytes [#/volume] correc gali for nucleated erythrocytes in Blood by Automated counon 06-01-2024 WBC corrected for nucl RBC Auto (Bld) [#/Vol] 9.0 10 3/uL 4.0-11.0 [facility] Lymphocytes Auto (Bld) [#/Vo l]on 06-01-2024 Lymphocytes (Bld) [#/Vol] 1.4 10 3/uL 1.2-3.8 [facility] Lymphocytes/100 WBC Auto (Bl d)on 06-01-2024 Lymphocytes/100 WBC (Bld) 15.9 % Low 20.5-60.0 [facility] MCH Auto (RBC) [Entitic mass ]on 06-01-2024 MCH (RBC) [Entitic mass] 29.5 pg 26.7-34.0 [facility] MCHC Auto (RBC) [Mass/Vol]on 06-01-2024 MCHC (RBC) [Mass/Vol] 33.2 g/dL 29.9-35.2 [facility] MCV Auto (RBC) [Entitic vol] on 06-01-2024 MCV (RBC) [Entitic vol] 88.7 fL 81.0-99.0 [facility] Monocytes Auto (Bld) [#/Vol] on 06-01-2024 Monocytes (Bld) [#/Vol] 0.8 10 3/uL 0.3-0.8 [facility] Monocytes/100 WBC Auto (Bld) on 06-01-2024 Monocytes/100 WBC (Bld) 8.5 % 1.7-12.0 [facility] Neutrophils Auto (Bld) [#/Vo l]on 06-01-2024 Neutrophils (Bld) [#/Vol] 6.6 10 3/uL High 1.4-6.5 [facility] Neutrophils/100 WBC Auto (Bl d)on 06-01-2024 Neutrophils/100 WBC (Bld) 73.3 % 43.0-75.0 [facility] No Panel Informationon 06-01 Eosinophils # (Auto) 0.1 10 3/uL 0.0-0.7 [facility] Immature Granulocyte # (Auto) 0.02 10 3/uL 0.00-0.03 [facility] 2.7 g/dL Low 3.4-5.0 [facility] 0.1 10 3/uL 0.0-0.7 [facility] 87 U/L 46-116 [facility] 18 U/L 14-59 [facility] 16 U/L 15-37 [facility] 20.5 [facility] 0.02 10 3/uL 0.00-0.03 [facility] 23.0 mg/dL High 7.0-18.0 [facility] 0.2 % 0.0-0.5 [facility] 8.7 mg/dL 8.5-10.1 [facility] 101 mmol/L 98-107 [facility] 28.9 mmol/L 21.0-32.0 [facility] 1.12 mg/dL High 0.55-1.02 [facility] 57 Low >=60 [facility] 232 mg/dL High 74-106 [facility] 4.1 mmol/L 3.5-5.1 [facility] 137 mmol/L 136-145 [facility] 0.5 mg/dL 0.2-1.0 [facility] 7.1 g/dL 6.4-8.2 [facility] Platelet mean volume Auto (B ld) [Entitic vol]on 06-01-2024 Platelet mean volume (Bld) [Entitic vol] 11.1 fL 9.5-13.5 [facility] Platelets Auto (Bld) [#/Vol] on 06-01-2024 Platelets (Bld) [#/Vol] 162 10 3/uL 150-450 [facility] RBC Auto (Bld) [#/Vol]on RBC (Bld) [#/Vol] 4.24 10 6/uL 4.20-5.40 [facility] Serum or plasma albumin/glob ulin mass ratioon 06-01-2024 Albumin/Globulin [Mass ratio] 0.6 {ratio} [facility] Serum or plasma anion gap de terminationon 06-01-2024 Anion gap [Moles/Vol] 11.2 mmol/L [facility] Basophils Auto (Bld) [#/Vol] on 05-26-2024 Basophils (Bld) [#/Vol] 0.1 10 3/uL 0.0-0.1 [facility] Basophils/100 WBC Auto (Bld) on 05-26-2024 Basophils/100 WBC (Bld) 1.1 % 0.2-2.0 [facility] Eosinophils/100 WBC Auto (Bl d)on 05-26-2024 Eosinophils/100 WBC (Bld) 2.1 % 0.9-7.0 [facility] Erythrocyte distribution wid th Auto (RBC) [Ratio]on 05-26-2024 Erythrocyte distribution width (RBC) [Ratio] 14.0 % 11.0-15.0 [facility] Estimated glomerular filtrat ion rate (GFR) non- Americanon 05-26-2024 GFR/1.73 sq M.predicted among non-blacks MDRD (S/P/Bld) [Vol rate/Area] 40 mL/min/{1.73_m2} Low >=60 [facility] Globulin Calc (S) [Mass/Vol] on 05-26-2024 Globulin (S) [Mass/Vol] 4.4 g/dL [facility] Hematocrit Auto (Bld) [Volum e fraction]on 05-26-2024 Hematocrit (Bld) [Volume fraction] 35.9 % Low 36.0-48.0 [facility] Hemoglobin [Mass/volume] in Bloodon 05-26-2024 Hemoglobin (Bld) [Mass/Vol] 12.0 g/dL 12.0-16.0 [facility] Laboratory - Chemistry and C hemistry - challengeon 05-26-2024 Albumin [Mass/Vol] 2.7 g/dL Low 3.4-5.0 [facility] ALP [Catalytic activity/Vol] 88 U/L 46-116 [facility] ALT [Catalytic activity/Vol] 20 U/L 14-59 [facility] AST [Catalytic activity/Vol] 12 U/L Low 15-37 [facility] Bilirubin [Mass/Vol] 0.5 mg/dL 0.2-1.0 [facility] Calcium [Mass/Vol] 8.9 mg/dL 8.5-10.1 [facility] Chloride [Moles/Vol] 104 mmol/L 98-107 [facility] CO2 [Moles/Vol] 26.7 mmol/L 21.0-32.0 [facility] Creatinine [Mass/Vol] 1.29 mg/dL High 0.55-1.02 [facility] Free T4 [Mass/Vol] 1.19 ng/dL 0.76-1.46 [facility] GFR/1.73 sq M.predicted MDRD (S/P/Bld) [Vol rate/Area] 49 mL/min/{1.73_m2} Low >=60 [facility] Glucose [Mass/Vol] 233 mg/dL High 74-106 [facility] Natriuretic peptide B (Bld) [Mass/Vol] 2687.0 pg/mL High <=1800.0 [facility] Comment on above: RESULTS CALLED TO DR Miranda ALVAREZ IN ER BY Mira Edwards [phone] Potassium [Moles/Vol] 4.0 mmol/L 3.5-5.1 [facility] Protein [Mass/Vol] 7.1 g/dL 6.4-8.2 [facility] Sodium [Moles/Vol] 140 mmol/L 136-145 [facility] TSH Qn 4.487 m[IU]/L High 0.358-3.740 [facility] Urea nitrogen [Mass/Vol] 33.0 mg/dL High 7.0-18.0 [facility] Urea nitrogen/Creatinine [Mass ratio] 25.6 mg/mg [facility] Laboratory - Hematology and Cell countson 05-26-2024 Immature granulocytes/100 WBC (Bld) 0.1 % 0.0-0.5 [facility] Laboratory - Microbiology an d Antimicrobial susceptibilityon 05-26-2024 S. pyogenes Ag Ql (Unsp spec) Negative [facility] SARS-CoV-2 (COVID-19) RNA FERN+probe Ql (Unsp spec) Not detected NOT DETECTE [facility] Comment on above: THIS TEST IS NOT PEREZ ROVDED BY THE FDA. It has beenauthorized for use under an Emergency Use Authorization. SARS-CoV-2 (COVID-19) RNA FERN+probe Ql (Unsp spec) See comment NOT DETECTE [facility] Comment on above: COVID AG PERFORMED-- - 06/06/24 1120 ---SARS-CoV-2 FERN previously reported as: NOT DETECTEDTHIS TEST IS NOT APPROVDED BY THE FDA. It has beenauthorized for use under an Emergency Use Authorization. SARS-CoV-2 (COVID-19) RNA FERN+probe Ql (Unsp spec) Negative NEGATIVE [facility] Comment on above: This test has [...] Auto (Bld) [#/Vol] 7.3 10 3/uL 4.0-11.0 [facility] Lymphocytes Auto (Bld) [#/Vo l]on 05-26-2024 Lymphocytes (Bld) [#/Vol] 1.3 10 3/uL 1.2-3.8 [facility] Lymphocytes/100 WBC Auto (Bl d)on 05-26-2024 Lymphocytes/100 WBC (Bld) 18.4 % Low 20.5-60.0 [facility] MCH Auto (RBC) [Entitic mass ]on 05-26-2024 MCH (RBC) [Entitic mass] 30.4 pg 26.7-34.0 [facility] MCHC Auto (RBC) [Mass/Vol]on 05-26-2024 MCHC (RBC) [Mass/Vol] 33.4 g/dL 29.9-35.2 [facility] MCV Auto (RBC) [Entitic vol] on 05-26-2024 MCV (RBC) [Entitic vol] 90.9 fL 81.0-99.0 [facility] Monocytes Auto (Bld) [#/Vol] on 05-26-2024 Monocytes (Bld) [#/Vol] 0.7 10 3/uL 0.3-0.8 [facility] Monocytes/100 WBC Auto (Bld) on 05-26-2024 Monocytes/100 WBC (Bld) 9.5 % 1.7-12.0 [facility] Neutrophils Auto (Bld) [#/Vo l]on 05-26-2024 Neutrophils (Bld) [#/Vol] 5.0 10 3/uL 1.4-6.5 [facility] Neutrophils/100 WBC Auto (Bl d)on 05-26-2024 Neutrophils/100 WBC (Bld) 68.8 % 43.0-75.0 [facility] No Panel Informationon 05-26 See comment NOT DETECTE [facility] Negative [facility] Eosinophils # (Auto) 0.2 10 3/uL 0.0-0.7 [facility] Immature Granulocyte # (Auto) 0.01 10 3/uL 0.00-0.03 [facility] Monoscreen Negative NEGATIVE [facility] Troponin I High Sensitivity 14.9 pg/mL 4.0-51.3 [facility] Comment on above: CUT-OFF POINTS HAVE [...] DIAGNOSTIC AND CLINICAL INFORMATION. 1.19 ng/dL 0.76-1.46 [facility] 2687.0 pg/mL High <=1800.0 [facility] 14.9 pg/mL 4.0-51.3 [facility] 4.487 u[iU]/mL High 0.358-3.740 [facility] Negative NEGATIVE [facility] 2.7 g/dL Low 3.4-5.0 [facility] 0.2 10 3/uL 0.0-0.7 [facility] 88 U/L 46-116 [facility] 20 U/L 14-59 [facility] 12 U/L Low 15-37 [facility] 25.6 [facility] 0.01 10 3/uL 0.00-0.03 [facility] 33.0 mg/dL High 7.0-18.0 [facility] 0.1 % 0.0-0.5 [facility] 8.9 mg/dL 8.5-10.1 [facility] 104 mmol/L 98-107 [facility] 26.7 mmol/L 21.0-32.0 [facility] 1.29 mg/dL High 0.55-1.02 [facility] 49 Low >=60 [facility] 233 mg/dL High 74-106 [facility] 4.0 mmol/L 3.5-5.1 [facility] 140 mmol/L 136-145 [facility] 0.5 mg/dL 0.2-1.0 [facility] 7.1 g/dL 6.4-8.2 [facility] Platelet mean volume Auto (B ld) [Entitic vol]on 05-26-2024 Platelet mean volume (Bld) [Entitic vol] 10.6 fL 9.5-13.5 [facility] Platelets Auto (Bld) [#/Vol] on 05-26-2024 Platelets (Bld) [#/Vol] 215 10 3/uL 150-450 [facility] [facility] RBC Auto (Bld) [#/Vol]on RBC (Bld) [#/Vol] 3.95 10 6/uL Low 4.20-5.40 [facility] Serum or plasma albumin/glob ulin mass ratioon 05-26-2024 Albumin/Globulin [Mass ratio] 0.6 {ratio} [facility] Serum or plasma anion gap de terminationon 05-26-2024 Anion gap [Moles/Vol] 13.3 mmol/L [facility] Estimated glomerular filtrat ion rate (GFR) non- Americanon 05-20-2024 GFR/1.73 sq M.predicted among non-blacks MDRD (S/P/Bld) [Vol rate/Area] 39 mL/min/{1.73_m2} Low >=60 [facility] Laboratory - Chemistry and C hemistry - challengeon 05-20-2024 Calcium [Mass/Vol] 8.8 mg/dL 8.5-10.1 [facility] Chloride [Moles/Vol] 103 mmol/L 98-107 [facility] CO2 [Moles/Vol] 24.3 mmol/L 21.0-32.0 [facility] Creatinine [Mass/Vol] 1.32 mg/dL High 0.55-1.02 [facility] GFR/1.73 sq M.predicted MDRD (S/P/Bld) [Vol rate/Area] 47 mL/min/{1.73_m2} Low >=60 [facility] Glucose [Mass/Vol] 243 mg/dL High 74-106 [facility] Potassium [Moles/Vol] 5.0 mmol/L 3.5-5.1 [facility] Sodium [Moles/Vol] 138 mmol/L 136-145 [facility] Urea nitrogen [Mass/Vol] 35.0 mg/dL High 7.0-18.0 [facility] Urea nitrogen/Creatinine [Mass ratio] 26.5 mg/mg [facility] No Panel Informationon 05-20 26.5 [facility] 35.0 mg/dL High 7.0-18.0 [facility] 8.8 mg/dL 8.5-10.1 [facility] 103 mmol/L 98-107 [facility] 24.3 mmol/L 21.0-32.0 [facility] 1.32 mg/dL High 0.55-1.02 [facility] 47 Low >=60 [facility] 243 mg/dL High 74-106 [facility] 5.0 mmol/L 3.5-5.1 [facility] 138 mmol/L 136-145 [facility] Serum or plasma anion gap de terminationon 05-20-2024 Anion gap [Moles/Vol] 15.7 mmol/L [facility] Basophils Auto (Bld) [#/Vol] on 05-06-2024 Basophils (Bld) [#/Vol] 0.1 10 3/uL 0.0-0.1 [facility] Basophils/100 WBC Auto (Bld) on 05-06-2024 Basophils/100 WBC (Bld) 0.9 % 0.2-2.0 [facility] Eosinophils/100 WBC Auto (Bl d)on 05-06-2024 Eosinophils/100 WBC (Bld) 2.7 % 0.9-7.0 [facility] Erythrocyte distribution wid th Auto (RBC) [Ratio]on 05-06-2024 Erythrocyte distribution width (RBC) [Ratio] 13.5 % 11.0-15.0 [facility] Estimated glomerular filtrat ion rate (GFR) non- Americanon 05-06-2024 GFR/1.73 sq M.predicted among non-blacks MDRD (S/P/Bld) [Vol rate/Area] 32 mL/min/{1.73_m2} Low >=60 [facility] Globulin Calc (S) [Mass/Vol] on 05-06-2024 Globulin (S) [Mass/Vol] 4.3 g/dL [facility] Hematocrit Auto (Bld) [Volum e fraction]on 05-06-2024 Hematocrit (Bld) [Volume fraction] 34.6 % Low 36.0-48.0 [facility] Hemoglobin [Mass/volume] in Bloodon 05-06-2024 Hemoglobin (Bld) [Mass/Vol] 11.1 g/dL Low 12.0-16.0 [facility] Laboratory - Chemistry and C hemistry - challengeon 05-06-2024 Albumin [Mass/Vol] 2.5 g/dL Low 3.4-5.0 [facility] ALP [Catalytic activity/Vol] 75 U/L 46-116 [facility] ALT [Catalytic activity/Vol] 16 U/L 14-59 [facility] AST [Catalytic activity/Vol] 11 U/L Low 15-37 [facility] Bilirubin [Mass/Vol] 0.4 mg/dL 0.2-1.0 [facility] Calcium [Mass/Vol] 8.4 mg/dL Low 8.5-10.1 [facility] Chloride [Moles/Vol] 107 mmol/L 98-107 [facility] CO2 [Moles/Vol] 25.7 mmol/L 21.0-32.0 [facility] Creatinine [Mass/Vol] 1.58 mg/dL High 0.55-1.02 [facility] GFR/1.73 sq M.predicted MDRD (S/P/Bld) [Vol rate/Area] 38 mL/min/{1.73_m2} Low >=60 [facility] Glucose [Mass/Vol] 146 mg/dL High 74-106 [facility] Magnesium [Mass/Vol] 1.6 mg/dL Low 1.8-2.4 [facility] Natriuretic peptide B (Bld) [Mass/Vol] 2762.0 pg/mL High <=1800.0 [facility] Comment on above: RESULTS CALLED TO CLARITZA SELLERS RN @BY Alla Venegas at 0557 Potassium [Moles/Vol] 4.1 mmol/L 3.5-5.1 [facility] Protein [Mass/Vol] 6.8 g/dL 6.4-8.2 [facility] Sodium [Moles/Vol] 141 mmol/L 136-145 [facility] Urea nitrogen [Mass/Vol] 49.0 mg/dL High 7.0-18.0 [facility] Urea nitrogen/Creatinine [Mass ratio] 31.0 mg/mg [facility] Laboratory - Hematology and Cell countson 05-06-2024 Immature granulocytes/100 WBC (Bld) 0.1 % 0.0-0.5 [facility] Leukocytes [#/volume] correc gali for nucleated erythrocytes in Blood by Automated counon 05-06-2024 WBC corrected for nucl RBC Auto (Bld) [#/Vol] 6.7 10 3/uL 4.0-11.0 [facility] Lymphocytes Auto (Bld) [#/Vo l]on 05-06-2024 Lymphocytes (Bld) [#/Vol] 1.5 10 3/uL 1.2-3.8 [facility] Lymphocytes/100 WBC Auto (Bl d)on 05-06-2024 Lymphocytes/100 WBC (Bld) 21.8 % 20.5-60.0 [facility] MCH Auto (RBC) [Entitic mass ]on 05-06-2024 MCH (RBC) [Entitic mass] 29.0 pg 26.7-34.0 [facility] MCHC Auto (RBC) [Mass/Vol]on 05-06-2024 MCHC (RBC) [Mass/Vol] 32.1 g/dL 29.9-35.2 [facility] MCV Auto (RBC) [Entitic vol] on 05-06-2024 MCV (RBC) [Entitic vol] 90.3 fL 81.0-99.0 [facility] Monocytes Auto (Bld) [#/Vol] on 05-06-2024 Monocytes (Bld) [#/Vol] 0.7 10 3/uL 0.3-0.8 [facility] Monocytes/100 WBC Auto (Bld) on 05-06-2024 Monocytes/100 WBC (Bld) 10.6 % 1.7-12.0 [facility] Neutrophils Auto (Bld) [#/Vo l]on 05-06-2024 Neutrophils (Bld) [#/Vol] 4.3 10 3/uL 1.4-6.5 [facility] Neutrophils/100 WBC Auto (Bl d)on 05-06-2024 Neutrophils/100 WBC (Bld) 63.9 % 43.0-75.0 [facility] No Panel Informationon 05-06 Eosinophils # (Auto) 0.2 10 3/uL 0.0-0.7 [facility] Immature Granulocyte # (Auto) 0.01 10 3/uL 0.00-0.03 [facility] Troponin I High Sensitivity 13.2 pg/mL 4.0-51.3 [facility] Comment on above: CUT-OFF POINTS HAVE [...] AND CLINICAL INFORMATION. 2762.0 pg/mL High <=1800.0 [facility] 13.2 pg/mL 4.0-51.3 [facility] 1.6 mg/dL Low 1.8-2.4 [facility] 2.5 g/dL Low 3.4-5.0 [facility] 0.2 10 3/uL 0.0-0.7 [facility] 75 U/L 46-116 [facility] 16 U/L 14-59 [facility] 11 U/L Low 15-37 [facility] 31.0 [facility] 0.01 10 3/uL 0.00-0.03 [facility] 49.0 mg/dL High 7.0-18.0 [facility] 0.1 % 0.0-0.5 [facility] 8.4 mg/dL Low 8.5-10.1 [facility] 107 mmol/L 98-107 [facility] 25.7 mmol/L 21.0-32.0 [facility] 1.58 mg/dL High 0.55-1.02 [facility] 38 Low >=60 [facility] 146 mg/dL High 74-106 [facility] 4.1 mmol/L 3.5-5.1 [facility] 141 mmol/L 136-145 [facility] 0.4 mg/dL 0.2-1.0 [facility] 6.8 g/dL 6.4-8.2 [facility] Platelet mean volume Auto (B ld) [Entitic vol]on 05-06-2024 Platelet mean volume (Bld) [Entitic vol] 11.3 fL 9.5-13.5 [facility] Platelets Auto (Bld) [#/Vol] on 05-06-2024 Platelets (Bld) [#/Vol] 146 10 3/uL Low 150-450 [facility] RBC Auto (Bld) [#/Vol]on RBC (Bld) [#/Vol] 3.83 10 6/uL Low 4.20-5.40 [facility] Serum or plasma albumin/glob ulin mass ratioon 05-06-2024 Albumin/Globulin [Mass ratio] 0.6 {ratio} [facility] Serum or plasma anion gap de terminationon 05-06-2024 Anion gap [Moles/Vol] 12.4 mmol/L [facility] Basophils Auto (Bld) [#/Vol] on 05-05-2024 Basophils (Bld) [#/Vol] 0.1 10 3/uL 0.0-0.1 [facility] Basophils/100 WBC Auto (Bld) on 05-05-2024 Basophils/100 WBC (Bld) 0.9 % 0.2-2.0 [facility] Eosinophils/100 WBC Auto (Bl d)on 05-05-2024 Eosinophils/100 WBC (Bld) 1.9 % 0.9-7.0 [facility] Erythrocyte distribution wid th Auto (RBC) [Ratio]on 05-05-2024 Erythrocyte distribution width (RBC) [Ratio] 13.4 % 11.0-15.0 [facility] Estimated glomerular filtrat ion rate (GFR) non- Americanon 05-05-2024 GFR/1.73 sq M.predicted among non-blacks MDRD (S/P/Bld) [Vol rate/Area] 29 mL/min/{1.73_m2} Low >=60 [facility] Globulin Calc (S) [Mass/Vol] on 05-05-2024 Globulin (S) [Mass/Vol] 4.4 g/dL [facility] Hematocrit Auto (Bld) [Volum e fraction]on 05-05-2024 Hematocrit (Bld) [Volume fraction] 33.8 % Low 36.0-48.0 [facility] Hemoglobin [Mass/volume] in Bloodon 05-05-2024 Hemoglobin (Bld) [Mass/Vol] 11.1 g/dL Low 12.0-16.0 [facility] Laboratory - Chemistry and C hemistry - challengeon 05-05-2024 Albumin [Mass/Vol] 2.6 g/dL Low 3.4-5.0 [facility] ALP [Catalytic activity/Vol] 74 U/L 46-116 [facility] ALT [Catalytic activity/Vol] 17 U/L 14-59 [facility] AST [Catalytic activity/Vol] 12 U/L Low 15-37 [facility] Bilirubin [Mass/Vol] 0.4 mg/dL 0.2-1.0 [facility] Calcium [Mass/Vol] 6.1 mg/dL Low 8.5-10.1 [facility] Chloride [Moles/Vol] 105 mmol/L 98-107 [facility] CO2 [Moles/Vol] 24.1 mmol/L 21.0-32.0 [facility] Creatinine [Mass/Vol] 1.71 mg/dL High 0.55-1.02 [facility] GFR/1.73 sq M.predicted MDRD (S/P/Bld) [Vol rate/Area] 35 mL/min/{1.73_m2} Low >=60 [facility] Glucose [Mass/Vol] 202 mg/dL High 74-106 [facility] Magnesium [Mass/Vol] 1.5 mg/dL Low 1.8-2.4 [facility] Natriuretic peptide B (Bld) [Mass/Vol] 2725.0 pg/mL High <=1800.0 [facility] Comment on above: RESULTS CALLED TO Frances Bryant (Austyn)@BY Franchesca HuynhPLODDER OPERATOR at 0547 Potassium [Moles/Vol] 5.9 mmol/L High 3.5-5.1 [facility] Protein [Mass/Vol] 7.0 g/dL 6.4-8.2 [facility] Sodium [Moles/Vol] 139 mmol/L 136-145 [facility] Urea nitrogen [Mass/Vol] 69.0 mg/dL High 7.0-18.0 [facility] Urea nitrogen/Creatinine [Mass ratio] 40.4 mg/mg [facility] Laboratory - Hematology and Cell countson 05-05-2024 Immature granulocytes/100 WBC (Bld) 0.3 % 0.0-0.5 [facility] Leukocytes [#/volume] correc gali for nucleated erythrocytes in Blood by Automated counon 05-05-2024 WBC corrected for nucl RBC Auto (Bld) [#/Vol] 6.9 10 3/uL 4.0-11.0 [facility] Lymphocytes Auto (Bld) [#/Vo l]on 05-05-2024 Lymphocytes (Bld) [#/Vol] 1.2 10 3/uL 1.2-3.8 [facility] Lymphocytes/100 WBC Auto (Bl d)on 05-05-2024 Lymphocytes/100 WBC (Bld) 18.0 % Low 20.5-60.0 [facility] MCH Auto (RBC) [Entitic mass ]on 05-05-2024 MCH (RBC) [Entitic mass] 29.3 pg 26.7-34.0 [facility] MCHC Auto (RBC) [Mass/Vol]on 05-05-2024 MCHC (RBC) [Mass/Vol] 32.8 g/dL 29.9-35.2 [facility] MCV Auto (RBC) [Entitic vol] on 05-05-2024 MCV (RBC) [Entitic vol] 89.2 fL 81.0-99.0 [facility] Monocytes Auto (Bld) [#/Vol] on 05-05-2024 Monocytes (Bld) [#/Vol] 0.6 10 3/uL 0.3-0.8 [facility] Monocytes/100 WBC Auto (Bld) on 05-05-2024 Monocytes/100 WBC (Bld) 8.7 % 1.7-12.0 [facility] Neutrophils Auto (Bld) [#/Vo l]on 05-05-2024 Neutrophils (Bld) [#/Vol] 4.8 10 3/uL 1.4-6.5 [facility] Neutrophils/100 WBC Auto (Bl d)on 05-05-2024 Neutrophils/100 WBC (Bld) 70.2 % 43.0-75.0 [facility] No Panel Informationon 05-05 Eosinophils # (Auto) 0.1 10 3/uL 0.0-0.7 [facility] Immature Granulocyte # (Auto) 0.02 10 3/uL 0.00-0.03 [facility] Troponin I High Sensitivity 14.0 pg/mL 4.0-51.3 [facility] Comment on above: CUT-OFF POINTS HAVE [...] AND CLINICAL INFORMATION. 2725.0 pg/mL High <=1800.0 [facility] 14.0 pg/mL 4.0-51.3 [facility] 1.5 mg/dL Low 1.8-2.4 [facility] 2.6 g/dL Low 3.4-5.0 [facility] 0.1 10 3/uL 0.0-0.7 [facility] 74 U/L 46-116 [facility] 17 U/L 14-59 [facility] 12 U/L Low 15-37 [facility] 40.4 [facility] 0.02 10 3/uL 0.00-0.03 [facility] 69.0 mg/dL High 7.0-18.0 [facility] 0.3 % 0.0-0.5 [facility] 6.1 mg/dL Low 8.5-10.1 [facility] 105 mmol/L 98-107 [facility] 24.1 mmol/L 21.0-32.0 [facility] 1.71 mg/dL High 0.55-1.02 [facility] 35 Low >=60 [facility] 202 mg/dL High 74-106 [facility] 5.9 mmol/L High 3.5-5.1 [facility] 139 mmol/L 136-145 [facility] 0.4 mg/dL 0.2-1.0 [facility] 7.0 g/dL 6.4-8.2 [facility] Platelet mean volume Auto (B ld) [Entitic vol]on 05-05-2024 Platelet mean volume (Bld) [Entitic vol] 11.8 fL 9.5-13.5 [facility] Platelets Auto (Bld) [#/Vol] on 05-05-2024 Platelets (Bld) [#/Vol] 173 10 3/uL 150-450 [facility] RBC Auto (Bld) [#/Vol]on RBC (Bld) [#/Vol] 3.79 10 6/uL Low 4.20-5.40 [facility] Serum or plasma albumin/glob ulin mass ratioon 05-05-2024 Albumin/Globulin [Mass ratio] 0.6 {ratio} [facility] Serum or plasma anion gap de terminationon 05-05-2024 Anion gap [Moles/Vol] 15.8 mmol/L [facility] Basophils Auto (Bld) [#/Vol] on 05-04-2024 Basophils (Bld) [#/Vol] 0.1 10 3/uL 0.0-0.1 [facility] Basophils/100 WBC Auto (Bld) on 05-04-2024 Basophils/100 WBC (Bld) 0.9 % 0.2-2.0 [facility] Eosinophils/100 WBC Auto (Bl d)on 05-04-2024 Eosinophils/100 WBC (Bld) 1.7 % 0.9-7.0 [facility] Erythrocyte distribution wid th Auto (RBC) [Ratio]on 05-04-2024 Erythrocyte distribution width (RBC) [Ratio] 13.6 % 11.0-15.0 [facility] Estimated glomerular filtrat ion rate (GFR) non- Americanon 05-04-2024 GFR/1.73 sq M.predicted among non-blacks MDRD (S/P/Bld) [Vol rate/Area] 21 mL/min/{1.73_m2} Low >=60 [facility] Globulin Calc (S) [Mass/Vol] on 05-04-2024 Globulin (S) [Mass/Vol] 4.9 g/dL [facility] Hematocrit Auto (Bld) [Volum e fraction]on 05-04-2024 Hematocrit (Bld) [Volume fraction] 37.6 % 36.0-48.0 [facility] Hemoglobin [Mass/volume] in Bloodon 05-04-2024 Hemoglobin (Bld) [Mass/Vol] 12.0 g/dL 12.0-16.0 [facility] Laboratory - Chemistry and C hemistry - challengeon 05-04-2024 Bilirubin Ql (U) Negative NEGATIVE [facility] Glucose (U) [Mass/Vol] 250 mg/dL Abnormal NEGATIVE [facility] Ketones Ql (U) Negative NEGATIVE [facility] pH (U) 6.0 [pH] 5.0-9.0 [facility] Specific gravity (U) [Rel density] 1.015 1.005-1.025 [facility] Urobilinogen Qn (U) 0.2 {Meka'U}/dL 0.2-1.0 [facility] Albumin [Mass/Vol] 2.8 g/dL Low 3.4-5.0 [facility] ALP [Catalytic activity/Vol] 86 U/L 46-116 [facility] ALT [Catalytic activity/Vol] 16 U/L 14-59 [facility] Ammonia (P) [Moles/Vol] 12 umol/L 11-32 [facility] AST [Catalytic activity/Vol] 8 U/L Low 15-37 [facility] Bilirubin [Mass/Vol] 0.4 mg/dL 0.2-1.0 [facility] Calcium [Mass/Vol] 8.8 mg/dL 8.5-10.1 [facility] Chloride [Moles/Vol] 101 mmol/L 98-107 [facility] CO2 [Moles/Vol] 22.4 mmol/L 21.0-32.0 [facility] Creatinine [Mass/Vol] 2.24 mg/dL High 0.55-1.02 [facility] GFR/1.73 sq M.predicted MDRD (S/P/Bld) [Vol rate/Area] 26 mL/min/{1.73_m2} Low >=60 [facility] Glucose [Mass/Vol] 369 mg/dL High 74-106 [facility] Lactate [Moles/Vol] 1.2 mmol/L 0.4-2.0 [facility] Magnesium [Mass/Vol] 1.7 mg/dL Low 1.8-2.4 [facility] Natriuretic peptide B (Bld) [Mass/Vol] 2342.0 pg/mL High <=1800.0 [facility] Comment on above: RESULTS CALLED TO RENETTA Renteria,RN @BY Andrea Long, MLTat 1126 Potassium [Moles/Vol] 5.6 mmol/L High 3.5-5.1 [facility] Protein [Mass/Vol] 7.7 g/dL 6.4-8.2 [facility] Sodium [Moles/Vol] 134 mmol/L Low 136-145 [facility] T4 [Mass/Vol] 11.80 ug/dL 4.80-13.90 [facility] TSH Qn 0.933 m[IU]/L 0.358-3.740 [facility] Urea nitrogen [Mass/Vol] 86.0 mg/dL High 7.0-18.0 [facility] Comment on above: RESULTS CALLED TO ER Rebecca Renteria,RN @BY Andrea Long, MLTat 1126 Urea nitrogen/Creatinine [Mass ratio] 38.4 mg/mg [facility] Laboratory - Hematology and Cell countson 05-04-2024 Immature granulocytes/100 WBC (Bld) 0.3 % 0.0-0.5 [facility] - Microbiology an d Antimicrobial susceptibilityOrdered By: Carl Morales on 05-04-2024 Bacteria identified Cx Nom (U) [facility] - Specimen inform ationon 05-04-2024 Appearance (U) SLIGHTLY CLOUDY Abnormal CLEAR [facility] Color (U) YELLOW YELLOW [facility] Laboratory - Urinalysison Hyaline casts LM Ql (Urine sed) RARE [facility] Leukocyte esterase Test strip Ql (U) Negative NEGATIVE [facility] Mucus Ql (Urine sed) NONE SEEN NONE SEEN [facility] Nitrite Ql (U) Negative NEGATIVE [facility] Protein Ql (U) 100 mg/dL Abnormal NEG/TRACE [facility] Leukocytes [#/volume] correc gali for nucleated erythrocytes in Blood by Automated counon 05-04-2024 WBC corrected for nucl RBC Auto (Bld) [#/Vol] 6.9 10 3/uL 4.0-11.0 [facility] Lymphocytes Auto (Bld) [#/Vo l]on 05-04-2024 Lymphocytes (Bld) [#/Vol] 1.2 10 3/uL 1.2-3.8 [facility] Lymphocytes/100 WBC Auto (Bl d)on 05-04-2024 Lymphocytes/100 WBC (Bld) 17.8 % Low 20.5-60.0 [facility] MCH Auto (RBC) [Entitic mass ]on 05-04-2024 MCH (RBC) [Entitic mass] 29.3 pg 26.7-34.0 [facility] MCHC Auto (RBC) [Mass/Vol]on 05-04-2024 MCHC (RBC) [Mass/Vol] 31.9 g/dL 29.9-35.2 [facility] MCV Auto (RBC) [Entitic vol] on 05-04-2024 MCV (RBC) [Entitic vol] 91.9 fL 81.0-99.0 [facility] Monocytes Auto (Bld) [#/Vol] on 05-04-2024 Monocytes (Bld) [#/Vol] 0.7 10 3/uL 0.3-0.8 [facility] Monocytes/100 WBC Auto (Bld) on 05-04-2024 Monocytes/100 WBC (Bld) 10.4 % 1.7-12.0 [facility] Neutrophils Auto (Bld) [#/Vo l]on 05-04-2024 Neutrophils (Bld) [#/Vol] 4.8 10 3/uL 1.4-6.5 [facility] Neutrophils/100 WBC Auto (Bl d)on 05-04-2024 Neutrophils/100 WBC (Bld) 68.9 % 43.0-75.0 [facility] No Panel Informationon 05-04 Acetone Level Negative NEGATIVE [facility] Negative NEGATIVE [facility] Urine Bacteria MODERATE #/HPF Abnormal NONE SEEN [facility] Urine Culture Reflexed ALREADY ORDERED [facility] Urine Microscopic Review YES [facility] Urine Occult Blood MODERATE Abnormal NEGATIVE [facility] Urine Other Casts SEEN #/LPF Abnormal NONE SEEN [facility] Urine Other Crystals None Seen #/HPF None Seen [facility] Urine RBC 2-5 #/HPF Abnormal 0-2 [facility] Urine Squamous Epithelial Cells FEW #/LPF Abnormal NONE/RARE [facility] Urine WBC 2-5 #/HPF Abnormal NONE SEEN [facility] ALREADY ORDERED [facility] YES [facility] SEEN #/LPF Abnormal NONE SEEN [facility] Negative NEGATIVE [facility] None Seen #/HPF None Seen [facility] MODERATE Abnormal NEGATIVE [facility] MODERATE #/HPF Abnormal NONE SEEN [facility] SLIGHTLY CLOUDY Abnormal CLEAR [facility] RARE [facility] YELLOW YELLOW [facility] NONE SEEN NONE SEEN [facility] 250 mg/dL Abnormal NEGATIVE [facility] 2-5 #/HPF Abnormal NONE SEEN [facility] FEW #/LPF Abnormal NONE/RARE [facility] 6.0 5.0-9.0 [facility] 100 mg/dL Abnormal NEG/TRACE [facility] 1.015 1.005-1.025 [facility] 0.2 EU/dL 0.2-1.0 [facility] Eosinophils # (Auto) 0.1 10 3/uL 0.0-0.7 [facility] Immature Granulocyte # (Auto) 0.02 10 3/uL 0.00-0.03 [facility] Troponin I High Sensitivity 10.5 pg/mL 4.0-51.3 [facility] Comment on above: CUT-OFF POINTS HAVE [...] Partial Pressure CO2 38.5 mm[Hg] Low 40.0-52.0 [facility] Venous Blood pH 7.353 7.330-7.430 [facility] 0.933 u[iU]/mL 0.358-3.740 [facility] 11.80 ug/dL 4.80-13.90 [facility] 1.7 mg/dL Low 1.8-2.4 [facility] 2342.0 pg/mL High <=1800.0 [facility] 1.2 mmol/L 0.4-2.0 [facility] 10.5 pg/mL 4.0-51.3 [facility] 12 umol/L 11-32 [facility] 38.5 mm[Hg] Low 40.0-52.0 [facility] 7.353 7.330-7.430 [facility] 2.8 g/dL Low 3.4-5.0 [facility] 0.1 10 3/uL 0.0-0.7 [facility] 86 U/L 46-116 [facility] 16 U/L 14-59 [facility] 8 U/L Low 15-37 [facility] 38.4 [facility] 0.02 10 3/uL 0.00-0.03 [facility] 86.0 mg/dL High 7.0-18.0 [facility] [facility] 0[facility] % 0.0-0.5 [facility] 8.8 mg/dL 8.5-10.1 [facility] 101 mmol/L 98-107 [facility] 22.4 mmol/L 21.0-32.0 [facility] 2.24 mg/dL High 0.55-1.02 [facility] 26 Low >=60 [facility] 369 mg/dL High 74-106 [facility] 5.6 mmol/L High 3.5-5.1 [facility] 134 mmol/L Low 136-145 [facility] 0.4 mg/dL 0.2-1.0 [facility] 7.7 g/dL 6.4-8.2 [facility] No Panel InformationOrdered By: LAMINE SINGH on 05-04-2024 Blood Culture 1 [facility] Platelet mean volume Auto (B ld) [Entitic vol]on 05-04-2024 Platelet mean volume (Bld) [Entitic vol] 11.4 fL 9.5-13.5 [facility] Platelets Auto (Bld) [#/Vol] on 05-04-2024 Platelets (Bld) [#/Vol] 160 10 3/uL 150-450 [facility] RBC Auto (Bld) [#/Vol]on RBC (Bld) [#/Vol] 4.09 10 6/uL Low 4.20-5.40 [facility] Serum or plasma albumin/glob ulin mass ratioon 05-04-2024 Albumin/Globulin [Mass ratio] 0.6 {ratio} [facility] Serum or plasma anion gap de terminationon 05-04-2024 Anion gap [Moles/Vol] 16.2 [facility] Basophils Auto (Bld) [#/Vol] on 05-01-2024 Basophils (Bld) [#/Vol] 0.1 10 3/uL 0.0-0.1 [facility] Basophils/100 WBC Auto (Bld) on 05-01-2024 Basophils/100 WBC (Bld) 0.7 % 0.2-2.0 [facility] Eosinophils/100 WBC Auto (Bl d)on 05-01-2024 Eosinophils/100 WBC (Bld) 2.3 % 0.9-7.0 [facility] Erythrocyte distribution wid th Auto (RBC) [Ratio]on 05-01-2024 Erythrocyte distribution width (RBC) [Ratio] 13.6 % 11.0-15.0 [facility] Estimated glomerular filtrat ion rate (GFR) non- Americanon 05-01-2024 GFR/1.73 sq M.predicted among non-blacks MDRD (S/P/Bld) [Vol rate/Area] 22 mL/min/{1.73_m2} Low >=60 [facility] Globulin Calc (S) [Mass/Vol] on 05-01-2024 Globulin (S) [Mass/Vol] 4.4 g/dL [facility] Hematocrit Auto (Bld) [Volum e fraction]on 05-01-2024 Hematocrit (Bld) [Volume fraction] 37.5 % 36.0-48.0 [facility] Hemoglobin [Mass/volume] in Bloodon 05-01-2024 Hemoglobin (Bld) [Mass/Vol] 12.1 g/dL 12.0-16.0 [facility] Laboratory - Chemistry and C hemistry - challengeon 05-01-2024 Calcium [Mass/Vol] 9.2 mg/dL 8.5-10.1 [facility] Chloride [Moles/Vol] 104 mmol/L 98-107 [facility] CO2 [Moles/Vol] 23.2 mmol/L 21.0-32.0 [facility] Creatinine [Mass/Vol] 2.14 mg/dL High 0.55-1.02 [facility] GFR/1.73 sq M.predicted MDRD (S/P/Bld) [Vol rate/Area] 27 mL/min/{1.73_m2} Low >=60 [facility] Glucose [Mass/Vol] 220 mg/dL High 74-106 [facility] Potassium [Moles/Vol] 5.3 mmol/L High 3.5-5.1 [facility] Sodium [Moles/Vol] 134 mmol/L Low 136-145 [facility] Urea nitrogen [Mass/Vol] 87.0 mg/dL High 7.0-18.0 [facility] Comment on above: RESULTS CALLED TO Klaus Michaels RN @BY Sury French [phone] Urea nitrogen/Creatinine [Mass ratio] 40.7 mg/mg [facility] Albumin [Mass/Vol] 2.8 g/dL Low 3.4-5.0 [facility] ALP [Catalytic activity/Vol] 80 U/L 46-116 [facility] ALT [Catalytic activity/Vol] 16 U/L 14-59 [facility] AST [Catalytic activity/Vol] 11 U/L Low 15-37 [facility] Bilirubin [Mass/Vol] 0.4 mg/dL 0.2-1.0 [facility] Natriuretic peptide B (Bld) [Mass/Vol] 1624.0 pg/mL <=1800.0 [facility] Protein [Mass/Vol] 7.2 g/dL 6.4-8.2 [facility] Laboratory - Hematology and Cell countson 05-01-2024 Immature granulocytes/100 WBC (Bld) 0.1 % 0.0-0.5 [facility] Leukocytes [#/volume] correc gali for nucleated erythrocytes in Blood by Automated counon 05-01-2024 WBC corrected for nucl RBC Auto (Bld) [#/Vol] 7.4 10 3/uL 4.0-11.0 [facility] Lymphocytes Auto (Bld) [#/Vo l]on 05-01-2024 Lymphocytes (Bld) [#/Vol] 2.2 10 3/uL 1.2-3.8 [facility] Lymphocytes/100 WBC Auto (Bl d)on 05-01-2024 Lymphocytes/100 WBC (Bld) 29.4 % 20.5-60.0 [facility] MCH Auto (RBC) [Entitic mass ]on 05-01-2024 MCH (RBC) [Entitic mass] 29.2 pg 26.7-34.0 [facility] MCHC Auto (RBC) [Mass/Vol]on 05-01-2024 MCHC (RBC) [Mass/Vol] 32.3 g/dL 29.9-35.2 [facility] MCV Auto (RBC) [Entitic vol] on 05-01-2024 MCV (RBC) [Entitic vol] 90.4 fL 81.0-99.0 [facility] Monocytes Auto (Bld) [#/Vol] on 05-01-2024 Monocytes (Bld) [#/Vol] 0.9 10 3/uL High 0.3-0.8 [facility] Monocytes/100 WBC Auto (Bld) on 05-01-2024 Monocytes/100 WBC (Bld) 11.5 % 1.7-12.0 [facility] Neutrophils Auto (Bld) [#/Vo l]on 05-01-2024 Neutrophils (Bld) [#/Vol] 4.1 10 3/uL 1.4-6.5 [facility] Neutrophils/100 WBC Auto (Bl d)on 05-01-2024 Neutrophils/100 WBC (Bld) 56.0 % 43.0-75.0 [facility] No Panel Informationon 05-01 40.7 [facility] 87.0 mg/dL High 7.0-18.0 [facility] 9.2 mg/dL 8.5-10.1 [facility] 104 mmol/L 98-107 [facility] 23.2 mmol/L 21.0-32.0 [facility] 2.14 mg/dL High 0.55-1.02 [facility] 27 Low >=60 [facility] 220 mg/dL High 74-106 [facility] 5.3 mmol/L High 3.5-5.1 [facility] 134 mmol/L Low 136-145 [facility] Eosinophils # (Auto) 0.2 10 3/uL 0.0-0.7 [facility] Immature Granulocyte # (Auto) 0.01 10 3/uL 0.00-0.03 [facility] 1624.0 pg/mL <=1800.0 [facility] 2.8 g/dL Low 3.4-5.0 [facility] 0.2 10 3/uL 0.0-0.7 [facility] 80 U/L 46-116 [facility] 16 U/L 14-59 [facility] 11 U/L Low 15-37 [facility] 0.01 10 3/uL 0.00-0.03 [facility] 0.1 % 0.0-0.5 [facility] 0.4 mg/dL 0.2-1.0 [facility] 7.2 g/dL 6.4-8.2 [facility] Platelet mean volume Auto (B ld) [Entitic vol]on 05-01-2024 Platelet mean volume (Bld) [Entitic vol] 11.6 fL 9.5-13.5 [facility] Platelets Auto (Bld) [#/Vol] on 05-01-2024 Platelets (Bld) [#/Vol] 151 10 3/uL 150-450 [facility] RBC Auto (Bld) [#/Vol]on RBC (Bld) [#/Vol] 4.15 10 6/uL Low 4.20-5.40 [facility] Serum or plasma albumin/glob ulin mass ratioon 05-01-2024 Albumin/Globulin [Mass ratio] 0.6 {ratio} [facility] Serum or plasma anion gap de terminationon 05-01-2024 Anion gap [Moles/Vol] 12.1 [facility] Basophils Auto (Bld) [#/Vol] on 04-30-2024 Basophils (Bld) [#/Vol] 0.1 10 3/uL 0.0-0.1 [facility] Basophils/100 WBC Auto (Bld) on 04-30-2024 Basophils/100 WBC (Bld) 0.9 % 0.2-2.0 [facility] Eosinophils/100 WBC Auto (Bl d)on 04-30-2024 Eosinophils/100 WBC (Bld) 2.4 % 0.9-7.0 [facility] Erythrocyte distribution wid th Auto (RBC) [Ratio]on 04-30-2024 Erythrocyte distribution width (RBC) [Ratio] 13.5 % 11.0-15.0 [facility] Estimated glomerular filtrat ion rate (GFR) non- Americanon 04-30-2024 GFR/1.73 sq M.predicted among non-blacks MDRD (S/P/Bld) [Vol rate/Area] 15 mL/min/{1.73_m2} Low >=60 [facility] Fibrin D-dimer [Presence] in Platelet poor plasma by Latex agglutinationon 04-30-2024 Fibrin D-dimer LA Ql (PPP) 0.24 mg/L FEU <=0.59 [facility] Comment on above: Increases in D-Dimer [...] Hematocrit (Bld) [Volume fraction] 38.6 % 36.0-48.0 [facility] Hemoglobin [Mass/volume] in Bloodon 04-30-2024 Hemoglobin (Bld) [Mass/Vol] 12.5 g/dL 12.0-16.0 [facility] Laboratory - Chemistry and C hemistry - challengeon 04-30-2024 Calcium [Mass/Vol] 9.0 mg/dL 8.5-10.1 [facility] Chloride [Moles/Vol] 100 mmol/L 98-107 [facility] CO2 [Moles/Vol] 24.4 mmol/L 21.0-32.0 [facility] Creatinine [Mass/Vol] 3.02 mg/dL High 0.55-1.02 [facility] GFR/1.73 sq M.predicted MDRD (S/P/Bld) [Vol rate/Area] 18 mL/min/{1.73_m2} Low >=60 [facility] Glucose [Mass/Vol] 271 mg/dL High 74-106 [facility] Magnesium [Mass/Vol] 1.8 mg/dL 1.8-2.4 [facility] Natriuretic peptide B (Bld) [Mass/Vol] 1485.0 pg/mL <=1800.0 [facility] Potassium [Moles/Vol] 5.3 mmol/L High 3.5-5.1 [facility] Sodium [Moles/Vol] 133 mmol/L Low 136-145 [facility] Urea nitrogen [Mass/Vol] 99.0 mg/dL High 7.0-18.0 [facility] Comment on above: RESULTS CALLED TO Yoel Robin (RN)@BY Franchesca Huynh MLT at [phone] Urea nitrogen/Creatinine [Mass ratio] 32.8 mg/mg [facility] Laboratory - Hematology and Cell countson 04-30-2024 Immature granulocytes/100 WBC (Bld) 0.1 % 0.0-0.5 [facility] Leukocytes [#/volume] correc gali for nucleated erythrocytes in Blood by Automated counon 04-30-2024 WBC corrected for nucl RBC Auto (Bld) [#/Vol] 7.5 10 3/uL 4.0-11.0 [facility] Lymphocytes Auto (Bld) [#/Vo l]on 04-30-2024 Lymphocytes (Bld) [#/Vol] 2.1 10 3/uL 1.2-3.8 [facility] Lymphocytes/100 WBC Auto (Bl d)on 04-30-2024 Lymphocytes/100 WBC (Bld) 27.8 % 20.5-60.0 [facility] MCH Auto (RBC) [Entitic mass ]on 04-30-2024 MCH (RBC) [Entitic mass] 29.6 pg 26.7-34.0 [facility] MCHC Auto (RBC) [Mass/Vol]on 04-30-2024 MCHC (RBC) [Mass/Vol] 32.4 g/dL 29.9-35.2 [facility] MCV Auto (RBC) [Entitic vol] on 04-30-2024 MCV (RBC) [Entitic vol] 91.5 fL 81.0-99.0 [facility] Monocytes Auto (Bld) [#/Vol] on 04-30-2024 Monocytes (Bld) [#/Vol] 0.8 10 3/uL 0.3-0.8 [facility] Monocytes/100 WBC Auto (Bld) on 04-30-2024 Monocytes/100 WBC (Bld) 10.0 % 1.7-12.0 [facility] Neutrophils Auto (Bld) [#/Vo l]on 04-30-2024 Neutrophils (Bld) [#/Vol] 4.4 10 3/uL 1.4-6.5 [facility] Neutrophils/100 WBC Auto (Bl d)on 04-30-2024 Neutrophils/100 WBC (Bld) 58.8 % 43.0-75.0 [facility] No Panel Informationon 04-30 Troponin I High Sensitivity 12.6 pg/mL 4.0-51.3 [facility] Comment on above: CUT-OFF POINTS HAVE [...] DIAGNOSTIC AND CLINICAL INFORMATION. 1.8 mg/dL 1.8-2.4 [facility] 1485.0 pg/mL <=1800.0 [facility] 12.6 pg/mL 4.0-51.3 [facility] 32.8 [facility] 99.0 mg/dL High 7.0-18.0 [facility] 9.0 mg/dL 8.5-10.1 [facility] 100 mmol/L 98-107 [facility] 24.4 mmol/L 21.0-32.0 [facility] 3.02 mg/dL High 0.55-1.02 [facility] 18 Low >=60 [facility] 271 mg/dL High 74-106 [facility] 5.3 mmol/L High 3.5-5.1 [facility] 133 mmol/L Low 136-145 [facility] Eosinophils # (Auto) 0.2 10 3/uL 0.0-0.7 [facility] Immature Granulocyte # (Auto) 0.01 10 3/uL 0.00-0.03 [facility] 0.2 10 3/uL 0.0-0.7 [facility] 0.01 10 3/uL 0.00-0.03 [facility] 0.1 % 0.0-0.5 [facility] Platelet mean volume Auto (B ld) [Entitic vol]on 04-30-2024 Platelet mean volume (Bld) [Entitic vol] 12.2 fL 9.5-13.5 [facility] Platelets Auto (Bld) [#/Vol] on 04-30-2024 Platelets (Bld) [#/Vol] 221 10 3/uL 150-450 [facility] RBC Auto (Bld) [#/Vol]on RBC (Bld) [#/Vol] 4.22 10 6/uL 4.20-5.40 [facility] Serum or plasma anion gap de terminationon 04-30-2024 Anion gap [Moles/Vol] 13.9 mmol/L [facility] Basophils Auto (Bld) [#/Vol] on 03-28-2024 Basophils (Bld) [#/Vol] 0.1 10 3/uL 0.0-0.1 [facility] Basophils/100 WBC Auto (Bld) on 03-28-2024 Basophils/100 WBC (Bld) 0.9 % 0.2-2.0 [facility] Eosinophils/100 WBC Auto (Bl d)on 03-28-2024 Eosinophils/100 WBC (Bld) 1.7 % 0.9-7.0 [facility] Erythrocyte distribution wid th Auto (RBC) [Ratio]on 03-28-2024 Erythrocyte distribution width (RBC) [Ratio] 14.2 % 11.0-15.0 [facility] Estimated glomerular filtrat ion rate (GFR) non- Americanon 03-28-2024 GFR/1.73 sq M.predicted among non-blacks MDRD (S/P/Bld) [Vol rate/Area] 39 mL/min/{1.73_m2} Low >=60 [facility] Globulin Calc (S) [Mass/Vol] on 03-28-2024 Globulin (S) [Mass/Vol] 4.8 g/dL [facility] Hematocrit Auto (Bld) [Volum e fraction]on 03-28-2024 Hematocrit (Bld) [Volume fraction] 40.0 % 36.0-48.0 [facility] Hemoglobin [Mass/volume] in Bloodon 03-28-2024 Hemoglobin (Bld) [Mass/Vol] 12.6 g/dL 12.0-16.0 [facility] Laboratory - Chemistry and C hemistry - challengeon 03-28-2024 Albumin [Mass/Vol] 2.5 g/dL Low 3.4-5.0 [facility] ALP [Catalytic activity/Vol] 93 U/L 46-116 [facility] ALT [Catalytic activity/Vol] 9 U/L Low 14-59 [facility] AST [Catalytic activity/Vol] 10 U/L Low 15-37 [facility] Bilirubin [Mass/Vol] 0.9 mg/dL 0.2-1.0 [facility] Calcium [Mass/Vol] 8.5 mg/dL 8.5-10.1 [facility] Chloride [Moles/Vol] 96 mmol/L Low 98-107 [facility] CO2 [Moles/Vol] 27.1 mmol/L 21.0-32.0 [facility] Creatinine [Mass/Vol] 1.33 mg/dL High 0.55-1.02 [facility] GFR/1.73 sq M.predicted MDRD (S/P/Bld) [Vol rate/Area] 47 mL/min/{1.73_m2} Low >=60 [facility] Glucose [Mass/Vol] 261 mg/dL High 74-106 [facility] Magnesium [Mass/Vol] 1.8 mg/dL 1.8-2.4 [facility] Natriuretic peptide B (Bld) [Mass/Vol] 3338.0 pg/mL High <=1800.0 [facility] Comment on above: RESULTS CALLED TO Claritza ButtsRN)@BY Franchesca Huynh MLT at [phone] Potassium [Moles/Vol] 3.8 mmol/L 3.5-5.1 [facility] Protein [Mass/Vol] 7.3 g/dL 6.4-8.2 [facility] Sodium [Moles/Vol] 133 mmol/L Low 136-145 [facility] Urea nitrogen [Mass/Vol] 36.0 mg/dL High 7.0-18.0 [facility] Urea nitrogen/Creatinine [Mass ratio] 27.1 mg/mg [facility] Laboratory - Hematology and Cell countson 03-28-2024 Immature granulocytes/100 WBC (Bld) 0.4 % 0.0-0.5 [facility] Leukocytes [#/volume] correc gali for nucleated erythrocytes in Blood by Automated counon 03-28-2024 WBC corrected for nucl RBC Auto (Bld) [#/Vol] 8.4 10 3/uL 4.0-11.0 [facility] Lymphocytes Auto (Bld) [#/Vo l]on 03-28-2024 Lymphocytes (Bld) [#/Vol] 1.8 10 3/uL 1.2-3.8 [facility] Lymphocytes/100 WBC Auto (Bl d)on 03-28-2024 Lymphocytes/100 WBC (Bld) 21.4 % 20.5-60.0 [facility] MCH Auto (RBC) [Entitic mass ]on 03-28-2024 MCH (RBC) [Entitic mass] 29.0 pg 26.7-34.0 [facility] MCHC Auto (RBC) [Mass/Vol]on 03-28-2024 MCHC (RBC) [Mass/Vol] 31.5 g/dL 29.9-35.2 [facility] MCV Auto (RBC) [Entitic vol] on 03-28-2024 MCV (RBC) [Entitic vol] 92.0 fL 81.0-99.0 [facility] Monocytes Auto (Bld) [#/Vol] on 03-28-2024 Monocytes (Bld) [#/Vol] 0.8 10 3/uL 0.3-0.8 [facility] Monocytes/100 WBC Auto (Bld) on 03-28-2024 Monocytes/100 WBC (Bld) 9.7 % 1.7-12.0 [facility] Neutrophils Auto (Bld) [#/Vo l]on 03-28-2024 Neutrophils (Bld) [#/Vol] 5.6 10 3/uL 1.4-6.5 [facility] Neutrophils/100 WBC Auto (Bl d)on 03-28-2024 Neutrophils/100 WBC (Bld) 65.9 % 43.0-75.0 [facility] No Panel Informationon 03-28 Eosinophils # (Auto) 0.1 10 3/uL 0.0-0.7 [facility] Immature Granulocyte # (Auto) 0.03 10 3/uL 0.00-0.03 [facility] 3338.0 pg/mL High <=1800.0 [facility] 1.8 mg/dL 1.8-2.4 [facility] 2.5 g/dL Low 3.4-5.0 [facility] 0.1 10 3/uL 0.0-0.7 [facility] 93 U/L 46-116 [facility] 9 U/L Low 14-59 [facility] 10 U/L Low 15-37 [facility] 27.1 [facility] 0.03 10 3/uL 0.00-0.03 [facility] 36.0 mg/dL High 7.0-18.0 [facility] 0.4 % 0.0-0.5 [facility] 8.5 mg/dL 8.5-10.1 [facility] 96 mmol/L Low 98-107 [facility] 27.1 mmol/L 21.0-32.0 [facility] 1.33 mg/dL High 0.55-1.02 [facility] 47 Low >=60 [facility] 261 mg/dL High 74-106 [facility] 3.8 mmol/L 3.5-5.1 [facility] 133 mmol/L Low 136-145 [facility] 0.9 mg/dL 0.2-1.0 [facility] 7.3 g/dL 6.4-8.2 [facility] Platelet mean volume Auto (B ld) [Entitic vol]on 03-28-2024 Platelet mean volume (Bld) [Entitic vol] 10.5 fL 9.5-13.5 [facility] Platelets Auto (Bld) [#/Vol] on 03-28-2024 Platelets (Bld) [#/Vol] 197 10 3/uL 150-450 [facility] RBC Auto (Bld) [#/Vol]on RBC (Bld) [#/Vol] 4.35 10 6/uL 4.20-5.40 [facility] Serum or plasma albumin/glob ulin mass ratioon 03-28-2024 Albumin/Globulin [Mass ratio] 0.5 {ratio} [facility] Serum or plasma anion gap de terminationon 03-28-2024 Anion gap [Moles/Vol] 13.7 mmol/L [facility] Basophils Auto (Bld) [#/Vol] on 03-27-2024 Basophils (Bld) [#/Vol] 0.1 10 3/uL 0.0-0.1 [facility] Basophils/100 WBC Auto (Bld) on 03-27-2024 Basophils/100 WBC (Bld) 0.8 % 0.2-2.0 [facility] Eosinophils/100 WBC Auto (Bl d)on 03-27-2024 Eosinophils/100 WBC (Bld) 1.1 % 0.9-7.0 [facility] Erythrocyte distribution wid th Auto (RBC) [Ratio]on 03-27-2024 Erythrocyte distribution width (RBC) [Ratio] 14.2 % 11.0-15.0 [facility] Estimated glomerular filtrat ion rate (GFR) non- Americanon 03-27-2024 GFR/1.73 sq M.predicted among non-blacks MDRD (S/P/Bld) [Vol rate/Area] 44 mL/min/{1.73_m2} Low >=60 [facility] Globulin Calc (S) [Mass/Vol] on 03-27-2024 Globulin (S) [Mass/Vol] 4.6 g/dL [facility] Glucose mean value [Mass/vol ume] in Blood Estimated from glycated hemoglobinon 03-27-2024 Average glucose Estimated from glycated hemoglobin (Bld) [Mass/Vol] 275 mg/dL [facility] Hematocrit Auto (Bld) [Volum e fraction]on 03-27-2024 Hematocrit (Bld) [Volume fraction] 37.4 % 36.0-48.0 [facility] Hemoglobin [Mass/volume] in Bloodon 03-27-2024 Hemoglobin (Bld) [Mass/Vol] 12.1 g/dL 12.0-16.0 [facility] Laboratory - Chemistry and C hemistry - challengeon 03-27-2024 Albumin [Mass/Vol] 2.6 g/dL Low 3.4-5.0 [facility] ALP [Catalytic activity/Vol] 89 U/L 46-116 [facility] ALT [Catalytic activity/Vol] 12 U/L Low 14-59 [facility] AST [Catalytic activity/Vol] 9 U/L Low 15-37 [facility] Bilirubin [Mass/Vol] 0.9 mg/dL 0.2-1.0 [facility] Calcium [Mass/Vol] 9.1 mg/dL 8.5-10.1 [facility] Chloride [Moles/Vol] 99 mmol/L 98-107 [facility] CO2 [Moles/Vol] 28.8 mmol/L 21.0-32.0 [facility] Creatinine [Mass/Vol] 1.19 mg/dL High 0.55-1.02 [facility] GFR/1.73 sq M.predicted MDRD (S/P/Bld) [Vol rate/Area] 53 mL/min/{1.73_m2} Low >=60 [facility] Glucose [Mass/Vol] 273 mg/dL High 74-106 [facility] Magnesium [Mass/Vol] 1.7 mg/dL Low 1.8-2.4 [facility] Natriuretic peptide B (Bld) [Mass/Vol] 4572.0 pg/mL High <=1800.0 [facility] Comment on above: RESULTS CALLED TO SA RA MIGUEL RN @BY Alla Kevin [phone] Potassium [Moles/Vol] 3.6 mmol/L 3.5-5.1 [facility] Protein [Mass/Vol] 7.2 g/dL 6.4-8.2 [facility] Sodium [Moles/Vol] 135 mmol/L Low 136-145 [facility] Urea nitrogen [Mass/Vol] 34.0 mg/dL High 7.0-18.0 [facility] Urea nitrogen/Creatinine [Mass ratio] 28.6 mg/mg [facility] Laboratory - Hematology and Cell countson 03-27-2024 HbA1c (Bld) [Mass fraction] 11.2 % High 4.5-6.2 [facility] Comment on above: ADA RECOMMENDED LIMI T 4.0 - 6.0ADA THERAPEUTIC TARGET < 7.0ACTION SUGGESTED> 7.0 Immature granulocytes/100 WBC (Bld) 0.3 % 0.0-0.5 [facility] Leukocytes [#/volume] correc gali for nucleated erythrocytes in Blood by Automated counon 03-27-2024 WBC corrected for nucl RBC Auto (Bld) [#/Vol] 9.7 10 3/uL 4.0-11.0 [facility] Lymphocytes Auto (Bld) [#/Vo l]on 03-27-2024 Lymphocytes (Bld) [#/Vol] 1.3 10 3/uL 1.2-3.8 [facility] Lymphocytes/100 WBC Auto (Bl d)on 03-27-2024 Lymphocytes/100 WBC (Bld) 13.3 % Low 20.5-60.0 [facility] MCH Auto (RBC) [Entitic mass ]on 03-27-2024 MCH (RBC) [Entitic mass] 29.2 pg 26.7-34.0 [facility] MCHC Auto (RBC) [Mass/Vol]on 03-27-2024 MCHC (RBC) [Mass/Vol] 32.4 g/dL 29.9-35.2 [facility] MCV Auto (RBC) [Entitic vol] on 03-27-2024 MCV (RBC) [Entitic vol] 90.3 fL 81.0-99.0 [facility] Monocytes Auto (Bld) [#/Vol] on 03-27-2024 Monocytes (Bld) [#/Vol] 0.8 10 3/uL 0.3-0.8 [facility] Monocytes/100 WBC Auto (Bld) on 03-27-2024 Monocytes/100 WBC (Bld) 8.4 % 1.7-12.0 [facility] Neutrophils Auto (Bld) [#/Vo l]on 03-27-2024 Neutrophils (Bld) [#/Vol] 7.4 10 3/uL High 1.4-6.5 [facility] Neutrophils/100 WBC Auto (Bl d)on 03-27-2024 Neutrophils/100 WBC (Bld) 76.1 % High 43.0-75.0 [facility] No Panel Informationon 03-27 Eosinophils # (Auto) 0.1 10 3/uL 0.0-0.7 [facility] Immature Granulocyte # (Auto) 0.03 10 3/uL 0.00-0.03 [facility] 4572.0 pg/mL High <=1800.0 [facility] 1.7 mg/dL Low 1.8-2.4 [facility] 11.2 % High 4.5-6.2 [facility] 2.6 g/dL Low 3.4-5.0 [facility] 0.1 10 3/uL 0.0-0.7 [facility] 89 U/L 46-116 [facility] 12 U/L Low 14-59 [facility] 9 U/L Low 15-37 [facility] 28.6 [facility] 0.03 10 3/uL 0.00-0.03 [facility] 34.0 mg/dL High 7.0-18.0 [facility] 0.3 % 0.0-0.5 [facility] 9.1 mg/dL 8.5-10.1 [facility] 99 mmol/L 98-107 [facility] 28.8 mmol/L 21.0-32.0 [facility] 1.19 mg/dL High 0.55-1.02 [facility] 53 Low >=60 [facility] 273 mg/dL High 74-106 [facility] 3.6 mmol/L 3.5-5.1 [facility] 135 mmol/L Low 136-145 [facility] 0.9 mg/dL 0.2-1.0 [facility] 7.2 g/dL 6.4-8.2 [facility] Platelet mean volume Auto (B ld) [Entitic vol]on 03-27-2024 Platelet mean volume (Bld) [Entitic vol] 10.6 fL 9.5-13.5 [facility] Platelets Auto (Bld) [#/Vol] on 03-27-2024 Platelets (Bld) [#/Vol] 204 10 3/uL 150-450 [facility] RBC Auto (Bld) [#/Vol]on RBC (Bld) [#/Vol] 4.14 10 6/uL Low 4.20-5.40 [facility] Serum or plasma albumin/glob ulin mass ratioon 03-27-2024 Albumin/Globulin [Mass ratio] 0.6 {ratio} [facility] Serum or plasma anion gap de terminationon 03-27-2024 Anion gap [Moles/Vol] 10.8 mmol/L [facility] Basophils Auto (Bld) [#/Vol] on 03-26-2024 Basophils (Bld) [#/Vol] 0.1 10 3/uL 0.0-0.1 [facility] Basophils/100 WBC Auto (Bld) on 03-26-2024 Basophils/100 WBC (Bld) 0.8 % 0.2-2.0 [facility] Eosinophils/100 WBC Auto (Bl d)on 03-26-2024 Eosinophils/100 WBC (Bld) 1.2 % 0.9-7.0 [facility] Erythrocyte distribution wid th Auto (RBC) [Ratio]on 03-26-2024 Erythrocyte distribution width (RBC) [Ratio] 14.5 % 11.0-15.0 [facility] Estimated glomerular filtrat ion rate (GFR) non- Americanon 03-26-2024 GFR/1.73 sq M.predicted among non-blacks MDRD (S/P/Bld) [Vol rate/Area] 46 mL/min/{1.73_m2} Low >=60 [facility] Glucose mean value [Mass/vol ume] in Blood Estimated from glycated hemoglobinon 03-26-2024 Average glucose Estimated from glycated hemoglobin (Bld) [Mass/Vol] 275 mg/dL [facility] Hematocrit Auto (Bld) [Volum e fraction]on 03-26-2024 Hematocrit (Bld) [Volume fraction] 40.1 % 36.0-48.0 [facility] Hemoglobin [Mass/volume] in Bloodon 03-26-2024 Hemoglobin (Bld) [Mass/Vol] 12.7 g/dL 12.0-16.0 [facility] Laboratory - Chemistry and C hemistry - challengeon 03-26-2024 Calcium [Mass/Vol] 9.1 mg/dL 8.5-10.1 [facility] Chloride [Moles/Vol] 102 mmol/L 98-107 [facility] CO2 [Moles/Vol] 28.5 mmol/L 21.0-32.0 [facility] Creatinine [Mass/Vol] 1.14 mg/dL High 0.55-1.02 [facility] Free T4 [Mass/Vol] 1.29 ng/dL 0.76-1.46 [facility] GFR/1.73 sq M.predicted MDRD (S/P/Bld) [Vol rate/Area] 56 mL/min/{1.73_m2} Low >=60 [facility] Glucose [Mass/Vol] 246 mg/dL High 74-106 [facility] Natriuretic peptide B (Bld) [Mass/Vol] 2890.0 pg/mL High <=1800.0 [facility] Comment on above: RESULTS CALLED TO YOEL ROBIN RN @BY Alla Kunz 0556 Potassium [Moles/Vol] 4.3 mmol/L 3.5-5.1 [facility] Sodium [Moles/Vol] 136 mmol/L 136-145 [facility] TSH Qn 6.001 m[IU]/L High 0.358-3.740 [facility] Urea nitrogen [Mass/Vol] 35.0 mg/dL High 7.0-18.0 [facility] Urea nitrogen/Creatinine [Mass ratio] 30.7 mg/mg [facility] Laboratory - Hematology and Cell countson 03-26-2024 HbA1c (Bld) [Mass fraction] 11.2 % High 4.5-6.2 [facility] Comment on above: ADA RECOMMENDED LIMI T 4.0 - 6.0ADA THERAPEUTIC TARGET < 7.0ACTION SUGGESTED> 7.0 Immature granulocytes/100 WBC (Bld) 0.2 % 0.0-0.5 [facility] Leukocytes [#/volume] correc gali for nucleated erythrocytes in Blood by Automated counon 03-26-2024 WBC corrected for nucl RBC Auto (Bld) [#/Vol] 8.3 10 3/uL 4.0-11.0 [facility] Lymphocytes Auto (Bld) [#/Vo l]on 03-26-2024 Lymphocytes (Bld) [#/Vol] 1.4 10 3/uL 1.2-3.8 [facility] Lymphocytes/100 WBC Auto (Bl d)on 03-26-2024 Lymphocytes/100 WBC (Bld) 16.5 % Low 20.5-60.0 [facility] MCH Auto (RBC) [Entitic mass ]on 03-26-2024 MCH (RBC) [Entitic mass] 29.1 pg 26.7-34.0 [facility] MCHC Auto (RBC) [Mass/Vol]on 03-26-2024 MCHC (RBC) [Mass/Vol] 31.7 g/dL 29.9-35.2 [facility] MCV Auto (RBC) [Entitic vol] on 03-26-2024 MCV (RBC) [Entitic vol] 92.0 fL 81.0-99.0 [facility] Monocytes Auto (Bld) [#/Vol] on 03-26-2024 Monocytes (Bld) [#/Vol] 0.7 10 3/uL 0.3-0.8 [facility] Monocytes/100 WBC Auto (Bld) on 03-26-2024 Monocytes/100 WBC (Bld) 7.9 % 1.7-12.0 [facility] Neutrophils Auto (Bld) [#/Vo l]on 03-26-2024 Neutrophils (Bld) [#/Vol] 6.1 10 3/uL 1.4-6.5 [facility] Neutrophils/100 WBC Auto (Bl d)on 03-26-2024 Neutrophils/100 WBC (Bld) 73.4 % 43.0-75.0 [facility] No Panel Informationon 03-26 Eosinophils # (Auto) 0.1 10 3/uL 0.0-0.7 [facility] Immature Granulocyte # (Auto) 0.02 10 3/uL 0.00-0.03 [facility] Troponin I High Sensitivity 12.4 pg/mL 4.0-51.3 [facility] Comment on above: CUT-OFF POINTS HAVE [...] DIAGNOSTIC AND CLINICAL INFORMATION. 1.29 ng/dL 0.76-1.46 [facility] 6.001 u[iU]/mL High 0.358-3.740 [facility] 2890.0 pg/mL High <=1800.0 [facility] 12.4 pg/mL 4.0-51.3 [facility] 11.2 % High 4.5-6.2 [facility] 30.7 [facility] 35.0 mg/dL High 7.0-18.0 [facility] 0.1 10 3/uL 0.0-0.7 [facility] 9.1 mg/dL 8.5-10.1 [facility] 102 mmol/L 98-107 [facility] 28.5 mmol/L 21.0-32.0 [facility] 1.14 mg/dL High 0.55-1.02 [facility] 0.02 10 3/uL 0.00-0.03 [facility] 56 Low >=60 [facility] 0.2 % 0.0-0.5 [facility] 246 mg/dL High 74-106 [facility] 4.3 mmol/L 3.5-5.1 [facility] 136 mmol/L 136-145 [facility] Platelet mean volume Auto (B ld) [Entitic vol]on 03-26-2024 Platelet mean volume (Bld) [Entitic vol] 10.8 fL 9.5-13.5 [facility] Platelets Auto (Bld) [#/Vol] on 03-26-2024 Platelets (Bld) [#/Vol] 225 10 3/uL 150-450 [facility] RBC Auto (Bld) [#/Vol]on RBC (Bld) [#/Vol] 4.36 10 6/uL 4.20-5.40 [facility] Serum or plasma anion gap de terminationon 03-26-2024 Anion gap [Moles/Vol] 9.8 mmol/L [facility] GI PANEL (PCR)on 03-06-2023 Adenovirus F 40/41 Not detected Normal NOT DETECTED [facility] Comment on above: Performed By: #### P OCGLUC #### [facility] [address] [address] [address] Kasia Nath Astrovirus Not detected Normal NOT DETECTED [facility] Comment on above: Performed By: #### P OCGLUC #### [facility] [address] [address] [address] Kasia Nath C. Diff toxin A/B Detected Critically abnormal NOT DETECTED [facility] Comment on above: Performed By: #### P OCGLUC #### [facility] [address] [place] [address] Dr. Kasia Nath Campylobacter Detected Critically abnormal NOT DETECTED [facility] Comment on above: Performed By: #### P OCGLUC #### [facility] [address] [address] [address] Kasia Nath Cryptosporidium Not detected Normal NOT DETECTED [facility] Comment on above: Performed By: #### P OCGLUC #### [facility] [address] [place] [address] Dr. Kasia Nath Cyclos. Cayetanensis Not detected Normal NOT DETECTED [facility] Comment on above: Performed By: #### P OCGLUC #### [facility] [address] [place] [address] Dr. Kasia Nath E. Coli O157 Not Applicable Normal Not Applicable [facility] Comment on above: Performed By: #### P OCGLUC #### [facility] [address] [place] [address] Dr. Kasia Nath E. histolytica Not detected Normal NOT DETECTED [facility] Comment on above: Performed By: #### P OCGLUC #### [facility] [address] [place] [address] Dr. Kasia Nath EAEC Not detected Normal NOT DETECTED [facility] Comment on above: Performed By: #### P OCGLUC #### [facility] [address] [place] [address] Dr. Kasia Nath EIEC Not detected Normal NOT DETECTED [facility] Comment on above: Performed By: #### P OCGLUC #### [facility] [address] [place] [address] Dr. Kasia Nath EPEC Not detected Normal NOT DETECTED [facility] Comment on above: Performed By: #### P OCGLUC #### [facility] [address] [place] [address] Dr. Kasia Nath ETEC Not detected Normal NOT DETECTED [facility] Comment on above: Performed By: #### P OCGLUC #### [facility] [address] [address] [address] Kasia Marielia Not detected Normal NOT DETECTED [facility] Comment on above: Performed By: #### P OCGLUC #### [facility] [address] [address] [address] Kasia KHAN CONTROLS PASSED Normal [facility] Comment on above: Performed By: #### P OCGLUC #### [facility] [address] [address] [address] Kasia THOMPSON JUNO HEADER GI PANEL BACTERIA Normal [facility] Comment on above: Performed By: #### P OCGLUC #### [facility] [address] [address] [address] Kasia GE ECOLI GI PANEL DIARRHEAGEN IC E.COLI / SHIGELLA Normal [facility] Comment on above: Performed By: #### P OCGLUC #### [facility] [address] [address] [address] Kasia GE INFO SEE BELOW Normal [facility] Comment on above: Result Comment: EAEC - Enteroaggregative E. Coli EPEC- Enteropathogenic E. Coli ETEC- Enterotoxigenic E. Coli lt/st STEC- Shigella-like toxin-producing E. Coli stx1/stx2 EIEC- Shigella/Enteroinvasive E. Coli Performed By: #### P OCGLUC #### [facility] [address] [address] [address] Kasia GE PARASITES GI PANEL PARASITES Normal [facility] Comment on above: Performed By: #### P OCGLUC #### [facility] [address] [address] [address] Kasia GE VIRUS GI PANEL VIRUSES Normal [facility] Comment on above: Performed By: #### P OCGLUC #### [facility] [address] [address] [address] Kasia Nath Norovirus GI/GII Not detected Normal NOT DETECTED [facility] Comment on above: Performed By: #### P OCGLUC #### [facility] [address] [place] [address] Dr. Kasia Garland. Shigelloides Not detected Normal NOT DETECTED [facility] Comment on above: Performed By: #### P OCGLUC #### [facility] [address] [place] [address] Dr. Kasia Nath Rotavirus A Not detected Normal NOT DETECTED [facility] Comment on above: Performed By: #### P OCGLUC #### [facility] [address] [place] [address] Dr. Kasia Nath Salmonella Not detected Normal NOT DETECTED [facility] Comment on above: Performed By: #### P OCGLUC #### [facility] [address] [place] [address] Dr. Kasia Nath Sapovirus Not detected Normal NOT DETECTED [facility] Comment on above: Performed By: #### P OCGLUC #### [facility] [address] [place] [address] Dr. Kasia Nath STEC Not detected Normal NOT DETECTED [facility] Comment on above: Performed By: #### P OCGLUC #### [facility] [address] [place] [address] Dr. Kasia Nath Vibrio Not detected Normal NOT DETECTED [facility] Comment on above: Performed By: #### P OCGLUC #### [facility] [address] [place] [address] Dr. Kasia Nath Vibrio Cholera Not detected Normal NOT DETECTED [facility] Comment on above: Performed By: #### P OCGLUC #### [facility] [address] [place] [address] Dr. Kasia Nath Y. Enterocolitica Not detected Normal NOT DETECTED [facility] Comment on above: Performed By: #### P OCGLUC #### [facility] [address] [place] [address] Dr. Kasia Nath CBC AUTO DIFFon 02-14-2023 BASO # 0.0 103/ul Normal 0.0-0.1 [facility] Comment on above: Performed By: #### P OCGLUC #### [facility] [address] [address] [address] Kasia Nath Basophils/100 WBC (Bld) 0.5 % Normal 0.2-2.0 [facility] Comment on above: Performed By: #### P OCGLUC #### [facility] [address] [place] [address] Dr. Kasia Nath EO # 0.2 103/ul Normal 0.0-0.7 [facility] Comment on above: Performed By: #### P OCGLUC #### [facility] [address] [place] [address] Dr. Kasia Nath Eosinophils/100 WBC (Bld) 2.7 % Normal 0.9-7.0 [facility] Comment on above: Performed By: #### P OCGLUC #### [facility] [address] [place] [address] Dr. Kasia Nath Erythrocyte distribution width (RBC) [Ratio] 13.0 % Normal 11.0-15.0 [facility] Comment on above: Performed By: #### P OCGLUC #### [facility] [address] [place] [address] Dr. Kasia Nath Hematocrit (Bld) [Volume fraction] 35.9 % Critically low 36.0-48.0 [facility] Comment on above: Performed By: #### P OCGLUC #### [facility] [address] [place] [address] Dr. Kasia Nath Hemoglobin (Bld) [Mass/Vol] 12.0 g/dL Normal 12.0-16.0 [facility] Comment on above: Performed By: #### P OCGLUC #### [facility] [address] [place] [address] Dr. Kasia Nath IG # 0.02 10e3/ul Normal 0.00-0.03 [facility] Comment on above: Performed By: #### P OCGLUC #### [facility] [address] [place] [address] Dr. Kasia Nath IG % 0.3 % Normal 0.0-0.5 [facility] Comment on above: Performed By: #### P OCGLUC #### [facility] [address] [address] [address] Kasia Nath LYMPH # 1.8 103/ul Normal 1.2-3.8 [facility] Comment on above: Performed By: #### P OCGLUC #### [facility] [address] [address] [address] Kasia Nath Lymphocytes/100 WBC (Bld) 22.8 % Normal 20.5-60.0 [facility] Comment on above: Performed By: #### P OCGLUC #### [facility] [address] [address] [address] Kasia Nath MANUAL DIFF REQ NO Normal [facility] Comment on above: Performed By: #### P OCGLUC #### [facility] [address] [address] [address] Kasia Nath MCH (RBC) [Entitic mass] 29.4 pg Normal 26.7-34.0 [facility] Comment on above: Performed By: #### P OCGLUC #### [facility] [address] [address] [address] Kasia Nath MCHC (RBC) [Mass/Vol] 33.4 g/dL Normal 29.9-35.2 [facility] Comment on above: Performed By: #### P OCGLUC #### [facility] [address] [address] [address] Kasia Nath MCV (RBC) [Entitic vol] 88.0 fL Normal 81.0-99.0 [facility] Comment on above: Performed By: #### P OCGLUC #### [facility] [address] [address] [address] Kasia Nath MONO # 0.7 103/ul Normal 0.3-0.8 [facility] Comment on above: Performed By: #### P OCGLUC #### [facility] [address] [address] [address] Kasia Nath Monocytes/100 WBC (Bld) 9.3 % Normal 1.7-12.0 [facility] Comment on above: Performed By: #### P OCGLUC #### [facility] [address] [address] [address] Kasia Nath NEUT # 5.1 103/ul Normal 1.4-6.5 [facility] Comment on above: Performed By: #### P OCGLUC #### [facility] [address] [address] [address] Kasia Nath Neutrophils/100 WBC (Bld) 64.4 % Normal 43.0-75.0 [facility] Comment on above: Performed By: #### P OCGLUC #### [facility] [address] [address] [address] Kasia Nath Platelet mean volume (Bld) [Entitic vol] 11.7 fL Normal 9.5-13.5 [facility] Comment on above: Performed By: #### P OCGLUC #### [facility] [address] [address] [address] Kasia Nath PLT 175 103/ul Normal 150-450 [facility] Comment on above: Performed By: #### P OCGLUC #### [facility] [address] [address] [address] Kasia Nath RBC 4.08 106/ul Critically low 4.20-5.40 [facility] Comment on above: Performed By: #### P OCGLUC #### [facility] [address] [address] [address] Kasia Nath WBC 7.9 103/ul Normal 4.0-11.0 [facility] Comment on above: Performed By: #### P OCGLUC #### [facility] [address] [address] [address] Kasia Nath LIPASEon 02-14-2023 Lipase [Catalytic activity/Vol] 51.0 U/L Critically low 73.0-393.0 [facility] Comment on above: Performed By: #### L IPA, CMP ####[facility] [address] [address]Dr[address] Kasia Nath PROF 14(COMP METB)on 023 Albumin [Mass/Vol] 2.8 g/dL Critically low 3.4-5.0 [facility] Comment on above: Performed By: #### L IPA, CMP ####[facility] [address] [id number] Kasia Nath Albumin/Globulin [Mass ratio] 0.7 {ratio} Normal [facility] Comment on above: Performed By: #### L IPA, CMP ####[facility] [address] [id number][address] Kasia Nath ALP [Catalytic activity/Vol] 90 U/L Normal 46-116 [facility] Comment on above: Performed By: #### L IPA, CMP ####[facility] [address] [id number] Kasia Nath ALT [Catalytic activity/Vol] 15 U/L Normal 14-59 [facility] Comment on above: Performed By: #### L IPA, CMP ####[facility] [address] [address]Dr[address] Kasia Nath Anion gap [Moles/Vol] 15.6 mmol/L Normal [facility] Comment on above: Performed By: #### L IPA, CMP ####[facility] [address] [id number][address] Kasia Nath AST [Catalytic activity/Vol] 9 U/L Critically low 15-37 [facility] Comment on above: Performed By: #### L IPA, CMP ####[facility] [address] [id number][address] Kasia Nath Bilirubin [Mass/Vol] 0.4 mg/dL Normal 0.2-1.0 [facility] Comment on above: Performed By: #### L IPA, CMP ####[facility] [address] [id number] Kasia Nath Calcium [Mass/Vol] 9.1 mg/dL Normal 8.5-10.1 [facility] Comment on above: Performed By: #### L IPA, CMP ####[facility] [address] [id number][address] Kasia Nath Chloride [Moles/Vol] 104 mmol/L Normal 98-107 [facility] Comment on above: Performed By: #### L IPA, CMP ####[facility] [address] [address]Dr[address] Kasia Nath CO2 [Moles/Vol] 17.0 mmol/L Critically low 21.0-32.0 [facility] Comment on above: Performed By: #### L IPA, CMP ####[facility] [address] [place], [place] [address]Dr. Kasia Nath Creatinine [Mass/Vol] 1.78 mg/dL Critically high 0.55-1.02 [facility] Comment on above: Performed By: #### L IPA, CMP ####[facility] [address] [place], [place] [address]Dr. Kasia Nath EGFR-AF NIGERIEN 34 mL/min/1.73m2 Critically low >=60 [facility] Comment on above: Performed By: #### L IPA, CMP ####[facility] [address] [place], [place] [address]Dr. Kasia Nath EGFR-NON AF NIGERIEN 28 mL/min/1.73m2 Critically low >=60 [facility] Comment on above: Performed By: #### L IPA, CMP ####[facility] [address] [place], [place] [address]Dr. Kasia Nath Globulin (S) [Mass/Vol] 4.3 g/dL Normal [facility] Comment on above: Performed By: #### L IPA, CMP ####[facility] [address] [place], [place] [address]Dr. Kasia Nath Glucose [Mass/Vol] 248 mg/dL Critically high 74-106 [facility] Comment on above: Performed By: #### L IPA, CMP ####[facility] [address] [place], [place] [address]Dr. Kasia Nath Potassium [Moles/Vol] 4.6 mmol/L Normal 3.5-5.1 [facility] Comment on above: Performed By: #### L IPA, CMP ####[facility] [address] [place], [place] [address]Dr. Kasia Nath Protein [Mass/Vol] 7.1 g/dL Normal 6.4-8.2 [facility] Comment on above: Performed By: #### L IPA, CMP ####[facility] [address] [place], [place] [address]Dr. Kasia Nath Sodium [Moles/Vol] 132 mmol/L Critically low 136-145 [facility] Comment on above: Performed By: #### L IPA, CMP ####[facility] [address] [place], [place] [address]Dr. Kasia Nath Urea nitrogen [Mass/Vol] 78.0 mg/dL Critically high 7.0-18.0 [facility] Comment on above: Performed By: #### L IPA, CMP ####[facility] [address] [place], [place] [address]Dr. Kasia Nath Urea nitrogen/Creatinine [Mass ratio] 43.8 mg/mg Normal [facility] Comment on above: Performed By: #### L IPA, CMP ####[facility] [address] [place], [place] [address]Dr. Kasia Nath CBC AUTO DIFFon 02-13-2023 BASO # 0.0 103/ul Normal 0.0-0.1 [facility] Comment on above: Performed By: #### C BC ####[facility] [address] [place], [place] [address]Dr. Kasia Nath Basophils/100 WBC (Bld) 0.5 % Normal 0.2-2.0 [facility] Comment on above: Performed By: #### C BC ####[facility] [address]uf[address] [place], [place] [address]Dr. Kasia Nath EO # 0.1 103/ul Normal 0.0-0.7 [facility] Comment on above: Performed By: #### C BC ####[facility] Adtkmlpcqg[address] [place], [place] [address]Dr. Kasia Nath Eosinophils/100 WBC (Bld) 1.0 % Normal 0.9-7.0 [facility] Comment on above: Performed By: #### C BC ####[facility] [address] [place] [id number]. Kasia Nath Erythrocyte distribution width (RBC) [Ratio] 12.8 % Normal 11.0-15.0 [facility] Comment on above: Performed By: #### C BC ####[facility] Czgcrvunxc[address] [place] [address]Dr. Kasia Nath Hematocrit (Bld) [Volume fraction] 38.5 % Normal 36.0-48.0 [facility] Comment on above: Performed By: #### C BC ####[facility] Bwypsvwzmg[address] [place], [place] [address]Dr. Kasia Nath Hemoglobin (Bld) [Mass/Vol] 13.0 g/dL Normal 12.0-16.0 [facility] Comment on above: Performed By: #### C BC ####[facility] Koekpnuqhv[address] [place], [place] [address]Dr. Kasia Nath IG # 0.02 10e3/ul Normal 0.00-0.03 [facility] Comment on above: Performed By: #### C BC ####[facility] Eodttfrhdj[address] [place], [place] [address]Dr. Kasia Nath IG % 0.2 % Normal 0.0-0.5 [facility] Comment on above: Performed By: #### C BC ####[facility] Mneviylyjc[address] [place], [place] [address]Dr. Kasia Nath LYMPH # 0.9 103/ul Critically low 1.2-3.8 The [facility] Comment on above: Performed By: #### C BC ####[facility] Wwtatlykey[address] [place], [place] [address]Dr. Kasia Nath Lymphocytes/100 WBC (Bld) 10.0 % Critically low 20.5-60.0 [facility] Comment on above: Performed By: #### C BC ####[facility] Txterbiimv[address] [place], [place] [address]Dr. Kasia Nath MANUAL DIFF REQ NO Normal The [facility] Comment on above: Performed By: #### C BC ####[facility] Ngccgfpixj3543 [place] [id number]. Kasia Nath MCH (RBC) [Entitic mass] 29.5 pg Normal 26.7-34.0 [facility] Comment on above: Performed By: #### C BC ####[facility] Wdiupfdqti0972 [place] [id number]. Kasia Nath MCHC (RBC) [Mass/Vol] 33.8 g/dL Normal 29.9-35.2 [facility] Comment on above: Performed By: #### C BC ####[facility] Fysznmqmpo[address] [place] [id number]. Kasia Nath MCV (RBC) [Entitic vol] 87.5 fL Normal 81.0-99.0 [facility] Comment on above: Performed By: #### C BC ####[facility] Jzjixmtnyu[address] [place], [place] [address]Dr. Kasia Portillo MONO # 0.5 103/ul Normal 0.3-0.8 [facility] Comment on above: Performed By: #### C BC ####[facility] Smteeuevij[address] [place], [place] [address]Dr. Kasia Portillo Monocytes/100 WBC (Bld) 5.7 % Normal 1.7-12.0 [facility] Comment on above: Performed By: #### C BC ####[facility] Qnyuv[address]stv[address] [place], [place] [id number]. Kasia Nath NEUT # 7.2 103/ul Critically high 1.4-6.5 [facility] Comment on above: Performed By: #### C BC ####[facility] Qjvjnpiffv[address] [place], [place] [id number]. Kasia Portillo Neutrophils/100 WBC (Bld) 82.6 % Critically high 43.0-75.0 [facility] Comment on above: Performed By: #### C BC ####[facility] Anuittkzkk[address] [place], [place] [phone]. Kasia Nath Platelet mean volume (Bld) [Entitic vol] 11.8 fL Normal 9.5-13.5 [facility] Comment on above: Performed By: #### C BC ####[facility] F[address]dfyw[address] [place], [place] [address]Vt. Kasia Nath PLT 187 103/ul Normal 150-450 [facility] Comment on above: Performed By: #### C BC ####[facility] Pyqpgygsnd5[address] [place], [place] [address]Re. Kasia Nath RBC 4.40 106/ul Normal 4.20-5.40 [facility] Comment on above: Performed By: #### C BC ####[facility] Djheddipdx8375 [place], [place] [address]Nb. Kasia Nath WBC 8.8 103/ul Normal 4.0-11.0 [facility] Comment on above: Performed By: #### C BC ####[facility] Rxlxqavicf15[address] [place], [place] [address]Ey. Kasia Nath CT ABD/PELVIS WO CONon 02-13 [...] JACOB MCCURDY Date: 2023-02-13 14:40 Normal [facility] CULTURE URINEon 02-13-2023 CULTURE URINE Culture Observations : LIGHT GROWTH OF MIXED GENITAL VON. NO POTENTIAL PATHOGENS SEEN. Normal [facility] Comment on above: Performed By: #### U RCX ####[facility] Ditfamxtgb9401 [place], [place] [address]FpDr. Kasia Nath Covid-19 PCR ([facility])on SARS-CoV-2 (COVID-19) RNA FERN+probe Ql (Unsp spec) Not detected Normal NOT DETECTED [facility] Comment on above: Result Comment: When [...] for this test is supported by the [place] of Health and Human Service's declaration that [...] used). Performed By: #### P OCGLUC #### [facility] [address] [place], [place] [address] Dr. Kasia Nath GI PANEL (PCR)on 02-13-2023 Adenovirus F 40/41 Not detected Normal NOT DETECTED [facility] Comment on above: Performed By: #### C BC #### [facility] [address] [place], [place] [address] Dr. Kasia Nath Astrovirus Not detected Normal NOT DETECTED [facility] Comment on above: Performed By: #### C BC #### [facility] [address] [place] [address] Dr. Kasia Chanel Diff toxin A/B Not detected Normal NOT DETECTED [facility] Comment on above: Performed By: #### C BC #### [facility] [address] [place] [address] Dr. Kasia Nath Campylobacter Not detected Normal NOT DETECTED [facility] Comment on above: Performed By: #### C BC #### [facility] [address] [place] [address] Dr. Kasia Nath Cryptosporidium Not detected Normal NOT DETECTED [facility] Comment on above: Performed By: #### C BC #### [facility] [address] [place] [address] Dr. Kasia Nath Cyclos. Cayetanensis Not detected Normal NOT DETECTED [facility] Comment on above: Performed By: #### C BC #### [facility] [address] [place] [address] Dr. Kasia Nath E. Coli O157 Not Applicable Normal Not Applicable [facility] Comment on above: Performed By: #### C BC #### [facility] [address] [place] [address] Dr. Kasia Nath E. histolytica Not detected Normal NOT DETECTED [facility] Comment on above: Performed By: #### C BC #### [facility] [address] [place] [address] Dr. Kasia Nath EAEC Not detected Normal NOT DETECTED [facility] Comment on above: Performed By: #### C BC #### [facility] [address] [place] [address] Dr. Kasia Nath EIEC Not detected Normal NOT DETECTED [facility] Comment on above: Performed By: #### C BC #### [facility] [address] [place] [address] Dr. Kasia Nath EPEC Not detected Normal NOT DETECTED [facility] Comment on above: Performed By: #### C BC #### [facility] [address] [place] [address] Dr. Kasia Nath ETEC Not detected Normal NOT DETECTED [facility] Comment on above: Performed By: #### C BC #### [facility] [address] [place] [address] [address] Kasia Ewing Not detected Normal NOT DETECTED [facility] Comment on above: Performed By: #### C BC #### [facility] [address] [address] [address] Kasia KHAN CONTROLS PASSED Normal The [facility] Comment on above: Performed By: #### C BC #### [facility] [address] [place] [address] [address] Kasia THOMPSON JUNO HEADER GI PANEL BACTERIA Normal [facility] Comment on above: Performed By: #### C BC #### [facility] [address] [address] [address] Kasia GE ECOLI GI PANEL DIARRHEAGEN IC E.COLI / SHIGELLA Normal [facility] Comment on above: Performed By: #### C BC #### [facility] [address] [address] [address] Kasia GE INFO SEE BELOW Normal [facility] Comment on above: Result Comment: EAEC - Enteroaggregative E. Coli EPEC- Enteropathogenic E. Coli ETEC- Enterotoxigenic E. Coli lt/st STEC- Shigella-like toxin-producing E. Coli stx1/stx2 EIEC- Shigella/Enteroinvasive E. Coli Performed By: #### C BC #### [facility] [address] [place] [address] Dr. Kasia GE PARASITES GI PANEL PARASITES Normal [facility] Comment on above: Performed By: #### C BC #### [facility] [address] [place] [address] [address] Kasia GE VIRUS GI PANEL VIRUSES Normal The [facility] Comment on above: Performed By: #### C BC #### [facility] [address] [place] [address] [address] Kasia Nath Norovirus GI/GII Not detected Normal NOT DETECTED [facility] Comment on above: Performed By: #### C BC #### [facility] [address] [place] [address] Dr. Kasia Nath P. Shigelloides Not detected Normal NOT DETECTED [facility] Comment on above: Performed By: #### C BC #### [facility] [address] [place] [address] Dr. Kasia Nath Rotavirus A Not detected Normal NOT DETECTED [facility] Comment on above: Performed By: #### C BC #### [facility] [address] [place] [address] Dr. Kasia Nath Salmonella Not detected Normal NOT DETECTED [facility] Comment on above: Performed By: #### C BC #### [facility] [address] [place] [address] Dr. Kasia Nath Sapovirus Not detected Normal NOT DETECTED [facility] Comment on above: Performed By: #### C BC #### [facility] [address] [place] [address] Dr. Kasia Nath STEC Not detected Normal NOT DETECTED [facility] Comment on above: Performed By: #### C BC #### [facility] [address] [place] [address] Dr. Kasia Nath Vibrio Not detected Normal NOT DETECTED [facility] Comment on above: Performed By: #### C BC #### [facility] [address] [place] [address] Dr. Kasia Nath Vibrio Cholera Not detected Normal NOT DETECTED [facility] Comment on above: Performed By: #### C BC #### [facility] [address] [place] [address] Dr. Kasia Nath Y. Enterocolitica Not detected Normal NOT DETECTED [facility] Comment on above: Performed By: #### C BC #### [facility] [address] [place] [address] Dr. Kasia Nath LACTATE/LACTIC ACIDon 2022 Lactate [Moles/Vol] 1.7 mmol/L Normal 0.4-2.0 [facility] Comment on above: Performed By: #### L ACT ####[facility] [address] [place] [address]Dr. Kasia Nath LIPASEon 02-13-2023 Lipase [Catalytic activity/Vol] 82.0 U/L Normal 73.0-393.0 [facility] Comment on above: Performed By: #### L IPA, CMP #### [facility] [address] [place] [address] Dr. Kasia Nath POINT OF CARE GLUCOSEon Glucose [Mass/Vol] 229 mg/dL Critically high 74-106 [facility] Comment on above: Performed By: #### P OCGLUC #### [facility] [address] [place] [address] Dr. Kasia Nath Glucose [Mass/Vol] 474 mg/dL Critically high 74-106 [facility] Comment on above: Performed By: #### P OCGLUC #### [facility] [address] [place] [address] Dr. Kasia Nath PROF 14(COMP METB)on 023 Albumin [Mass/Vol] 3.4 g/dL Normal 3.4-5.0 [facility] Comment on above: Performed By: #### L IPA, CMP #### [facility] [address] [place] [address] Dr. Kasia Nath Albumin/Globulin [Mass ratio] 0.7 {ratio} Normal [facility] Comment on above: Performed By: #### L IPA, CMP #### [facility] [address] [place] [address] Dr. Kasia Nath ALP [Catalytic activity/Vol] 106 U/L Normal 46-116 [facility] Comment on above: Performed By: #### L IPA, CMP #### [facility] [address] [place] [address] Dr. Kasia Nath ALT [Catalytic activity/Vol] 21 U/L Normal 14-59 [facility] Comment on above: Performed By: #### L IPA, CMP #### [facility] [address] [place] [address] Dr. Kasia Nath Anion gap [Moles/Vol] 17.7 mmol/L Normal [facility] Comment on above: Performed By: #### L IPA, CMP #### [facility] [address] [address] [address] Kasia Nath AST [Catalytic activity/Vol] 11 U/L Critically low 15-37 [facility] Comment on above: Performed By: #### L IPA, CMP #### [facility] [address] [address] [address] Kasia Nath Bilirubin [Mass/Vol] 0.5 mg/dL Normal 0.2-1.0 [facility] Comment on above: Performed By: #### L IPA, CMP #### [facility] [address] [address] [address] Kasia Nath Calcium [Mass/Vol] 9.6 mg/dL Normal 8.5-10.1 [facility] Comment on above: Performed By: #### L IPA, CMP #### [facility] [address] [place] [address] [address] Kasia Nath Chloride [Moles/Vol] 99 mmol/L Normal 98-107 [facility] Comment on above: Performed By: #### L IPA, CMP #### [facility] [address] [address] [address] Kasia Nath CO2 [Moles/Vol] 20.6 mmol/L Critically low 21.0-32.0 [facility] Comment on above: Performed By: #### L IPA, CMP #### [facility] [address] [place] [address] Dr. Kasia Nath Creatinine [Mass/Vol] 2.14 mg/dL Critically high 0.55-1.02 [facility] Comment on above: Performed By: #### L IPA, CMP #### [facility] [address] [address] [address] Kasia Nath EGFR-AF NIGERIEN 27 mL/min/1.73m2 Critically low >=60 [facility] Comment on above: Performed By: #### L IPA, CMP #### [facility] [address] [place] [address] [address] Kasia Nath EGFR-NON AF NIGERIEN 22 mL/min/1.73m2 Critically low >=60 [facility] Comment on above: Performed By: #### L IPA, CMP #### [facility] [address] [address] [address] Kasia Nath Globulin (S) [Mass/Vol] 4.8 g/dL Normal [facility] Comment on above: Performed By: #### L IPA, CMP #### [facility] [address] [address] [address] Kasia Nath Glucose [Mass/Vol] 498 mg/dL Critically high 74-106 [facility] Comment on above: Performed By: #### L IPA, CMP #### [facility] [address] [address] [address] Kasia Nath Potassium [Moles/Vol] 5.3 mmol/L Critically high 3.5-5.1 [facility] Comment on above: Performed By: #### L IPA, CMP #### [facility] [address] [place] [address] Dr. Kasia Nath Protein [Mass/Vol] 8.2 g/dL Normal 6.4-8.2 [facility] Comment on above: Performed By: #### L IPA, CMP #### [facility] [address] [place] [address] Dr. Kasia Nath Sodium [Moles/Vol] 132 mmol/L Critically low 136-145 [facility] Comment on above: Performed By: #### L IPA, CMP #### [facility] [address] [place] [address] [address] Kasia Nath Urea nitrogen [Mass/Vol] 86.0 mg/dL Critically high 7.0-18.0 [facility] Comment on above: Performed By: #### L IPA, CMP #### [facility] [address] [address] [address] Kasia Nath Urea nitrogen/Creatinine [Mass ratio] 40.2 mg/mg Normal [facility] Comment on above: Performed By: #### L IPA, CMP #### [facility] [address] [place] [address] Dr. Kasia Nath UA RANDOM W/MICROSCOPICon BACTERIA TRACE Abnormal NONE SEEN [facility] Comment on above: Performed By: #### U AMIC ####[facility] [address] [place] [address]Dr. Kasia Nath Bilirubin Ql (U) Negative Normal NEGATIVE The [facility] Comment on above: Performed By: #### U AMIC ####[facility] [address] [place] [address]Dr. Kasia Nath CAST SEEN Abnormal NONE SEEN [facility] Comment on above: Performed By: #### U AMIC ####[facility] [address] [place] [address]Dr. Kasia Nath Clarity (U) CLEAR Normal CLEAR [facility] Comment on above: Performed By: #### U AMIC ####[facility] [address] [place] [address]Dr. Kasia Nath Color (U) LT. YELLOW Normal YELLOW [facility] Comment on above: Performed By: #### U AMIC ####[facility] [address] [place], [place] [address]Dr. Kasia Nath Crystals LM Nom (Urine sed) NONE SEEN Normal NONE SEEN [facility] Comment on above: Performed By: #### U AMIC ####[facility] [address] [place], [place] [address]Dr. Kasia Nath Epithelial cells LM Ql (Urine sed) FEW Abnormal NONE SEEN /RARE [facility] Comment on above: Performed By: #### U AMIC ####[facility] [address] [place], [place] [address]Dr. Kasia Nath Glucose Ql (U) >1000 Abnormal NEGATIVE The [facility] Comment on above: Performed By: #### U AMIC ####[facility] [address]we[address] [place], [place] [address]Dr. Kasia Nath Hemoglobin Ql (U) Negative Normal NEGATIVE The [facility] Comment on above: Performed By: #### U AMIC ####[facility] [address] [place] [address]Dr. Kasia Nath HYALINE CAST RARE Normal [facility] Comment on above: Performed By: #### U AMIC ####[facility] [address] [place] [address]Dr. Fartuncristy Nath Ketones Ql (U) Negative Normal NEGATIVE The [facility] Comment on above: Performed By: #### U AMIC ####[facility] Cyt[address]ed[address] [place] [address]Dr. Kasia Nath LEUKOCYTES Negative Normal NEGATIVE [facility] Comment on above: Performed By: #### U AMIC ####[facility] Yvtnhairwf[address] [place], [place] [address]Dr. Kasia Nath MUCOUS NONE SEEN Normal NONE SEEN [facility] Comment on above: Performed By: #### U AMIC ####[facility] Kcmaq[address]kuw[address] [place], [place] [address]Dr. Kasia Nath Nitrite Ql (U) Negative Normal NEGATIVE The [facility] Comment on above: Performed By: #### U AMIC ####[facility] [address]trarejof[address] [place], [place] [address]Dr. Kasia Nath pH (U) 5.5 [pH] Normal 5-9 [facility] Comment on above: Performed By: #### U AMIC ####[facility] Mrssgeltvm[address] [place], [place] [address]Dr. Kasia Nath RBC 0-2 Normal 0-2 [facility] Comment on above: Performed By: #### U AMIC ####[facility] Fxzznmdjax[address] [place], [place] [address]Dr. Kasia Nath SPEC GRAVITY 1.015 Normal 1.005-<=1.0 25 [facility] Comment on above: Performed By: #### U AMIC ####[facility] Jscc[address]deiql[address] [place], [place] [address]Dr. Kasia Nath UA PROTEIN TRACE Normal NEGATIVE/ TRACE [facility] Comment on above: Performed By: #### U AMIC ####[facility] Sp[address]zzrjcdj[address] [place], [place] [address]Dr. Kasia Nath Urobilinogen Qn (U) 0.2 {Meka'U}/dL Normal 0.2 - 1. 0 [facility] Comment on above: Performed By: #### U AMIC ####[facility] [address]iavfa[address] [place] [address]Dr. Kasia Nath WBC 0-2 Abnormal NONE SEEN [facility] Comment on above: Performed By: #### U AMIC ####[facility] F[address]hsjtr[address] [place] [address]Dr. Kasia Nath BNPon 01-16-2023 Natriuretic peptide B (Bld) [Mass/Vol] 1675.0 pg/mL Normal <=1,800.0 [facility] Comment on above: Performed By: #### B CONTROL SYSTEMS DRAFTING OFFICER, CMP ####[facility] [address]zfzw[address] [place] [address]Dr. Kasia Nath PROF 14(COMP METB)on 023 Albumin [Mass/Vol] 3.4 g/dL Normal 3.4-5.0 [facility] Comment on above: Performed By: #### B CONTROL SYSTEMS DRAFTING OFFICER, CMP ####[facility] Lcilualzku[address] [place], [place] [address]Dr. Kasia Nath Albumin/Globulin [Mass ratio] 0.8 {ratio} Normal [facility] Comment on above: Performed By: #### B CONTROL SYSTEMS DRAFTING OFFICER, CMP ####[facility] Wlrcx[address]dvzu[address] [place], [place] [address]Dr. Kasia Nath ALP [Catalytic activity/Vol] 99 U/L Normal 46-116 [facility] Comment on above: Performed By: #### B CONTROL SYSTEMS DRAFTING OFFICER, CMP ####[facility] [address]tr[address] [place] [address]Dr. Kasia Nath ALT [Catalytic activity/Vol] 18 U/L Normal 14-59 [facility] Comment on above: Performed By: #### B CONTROL SYSTEMS DRAFTING OFFICER, CMP ####[facility] [address] [place] [address]Dr. Kasia Nath Anion gap [Moles/Vol] 10.6 mmol/L Normal [facility] Comment on above: Performed By: #### B CONTROL SYSTEMS DRAFTING OFFICER, CMP ####[facility] [address]oux[address] [place] [address]Dr. Kasia Nath AST [Catalytic activity/Vol] 15 U/L Normal 15-37 [facility] Comment on above: Performed By: #### B CONTROL SYSTEMS DRAFTING OFFICER, CMP ####[facility] [address]fzov[address] [place] [address]Dr. Kasia Nath Bilirubin [Mass/Vol] 0.5 mg/dL Normal 0.2-1.0 [facility] Comment on above: Performed By: #### B CONTROL SYSTEMS DRAFTING OFFICER, CMP ####[facility] [address]prqdf[address] [place] [address]Dr. Kasia Nath Calcium [Mass/Vol] 9.1 mg/dL Normal 8.5-10.1 [facility] Comment on above: Performed By: #### B CONTROL SYSTEMS DRAFTING OFFICER, CMP ####[facility] Torw[address]cydh[address] [place], [place] [address]Dr. Kasia Nath Chloride [Moles/Vol] 98 mmol/L Normal 98-107 [facility] Comment on above: Performed By: #### B CONTROL SYSTEMS DRAFTING OFFICER, CMP ####[facility] [address] [place], [place] [address]Dr. Kasia Nath CO2 [Moles/Vol] 30.4 mmol/L Normal 21.0-32.0 [facility] Comment on above: Performed By: #### B CONTROL SYSTEMS DRAFTING OFFICER, CMP ####[facility] [address] [place], [place] [address]Dr. Kasia Nath Creatinine [Mass/Vol] 1.44 mg/dL Critically high 0.55-1.02 [facility] Comment on above: Performed By: #### B CONTROL SYSTEMS DRAFTING OFFICER, CMP ####[facility] [address] [place], [place] [address]Dr. Kasia Portillo EGFR-AF NIGERIEN 43 mL/min/1.73m2 Critically low >=60 [facility] Comment on above: Performed By: #### B CONTROL SYSTEMS DRAFTING OFFICER, CMP ####[facility] [address]wk[address] [place], [place] [address]Dr. Fartuncristy Portillo EGFR-NON AF NIGERIEN 35 mL/min/1.73m2 Critically low >=60 [facility] Comment on above: Performed By: #### B CONTROL SYSTEMS DRAFTING OFFICER, CMP ####[facility] B[address] [place], [place] [address]Dr. Kasia Nath Globulin (S) [Mass/Vol] 4.4 g/dL Normal [facility] Comment on above: Performed By: #### B CONTROL SYSTEMS DRAFTING OFFICER, CMP ####[facility] [address] [place] [address]Dr. Kasia Nath Glucose [Mass/Vol] 401 mg/dL Critically high 74-106 [facility] Comment on above: Performed By: #### B CONTROL SYSTEMS DRAFTING OFFICER, CMP ####[facility] Rris[address] [place], [place] [address]Dr. Kasia Nath Potassium [Moles/Vol] 5.0 mmol/L Normal 3.5-5.1 [facility] Comment on above: Performed By: #### B CONTROL SYSTEMS DRAFTING OFFICER, CMP ####[facility] [address] [place], [place] [address]Dr. Kasia Nath Protein [Mass/Vol] 7.8 g/dL Normal 6.4-8.2 [facility] Comment on above: Performed By: #### B CONTROL SYSTEMS DRAFTING OFFICER, CMP ####[facility] [address] [place], [place] [address]Dr. Kasia Nath Sodium [Moles/Vol] 134 mmol/L Critically low 136-145 [facility] Comment on above: Performed By: #### B CONTROL SYSTEMS DRAFTING OFFICER, CMP ####[facility] [address] [place], [place] [address]Dr. Kasia Nath Urea nitrogen [Mass/Vol] 46.0 mg/dL Critically high 7.0-18.0 [facility] Comment on above: Performed By: #### B CONTROL SYSTEMS DRAFTING OFFICER, CMP ####[facility] [address] [place], [place] [address]Dr. Kasia Nath Urea nitrogen/Creatinine [Mass ratio] 31.9 mg/mg Normal [facility] Comment on above: Performed By: #### B CONTROL SYSTEMS DRAFTING OFFICER, CMP ####[facility] [address] [place], [place] [address]Dr. Kasia Nath BNPon 01-05-2023 Natriuretic peptide B (Bld) [Mass/Vol] 1389.0 pg/mL Normal <=1,800.0 [facility] Comment on above: Performed By: #### B CONTROL SYSTEMS DRAFTING OFFICER, CMADM, CMP ####[facility] [address] [place] [id number]. Kasia Nath CARDIAC EMERY ADMITon 023 CK [Catalytic activity/Vol] 138 U/L Normal 26-192 [facility] Comment on above: Performed By: #### B CONTROL SYSTEMS DRAFTING OFFICER, CMADM, CMP ####[facility] [address] [place] [id number]. Kasia Nath CK.MB [Mass/Vol] 2.22 ng/mL Normal <=3.60 [facility] Comment on above: Performed By: #### B CONTROL SYSTEMS DRAFTING OFFICER, CMADM, CMP ####[facility] [address] [place] [address]Dr. Kasia Nath HSTROP 15.9 pg/mL Normal 4.0-51.3 [facility] Comment on above: Result Comment: CUT- OFF POINTS HAVE BEEN ESTABLISHED BASED ON THE FOURTH UNIVERSAL DEFINITIONS OF MYOCARDIAL INFARCTION. THE UPPER REFERENCE LIMIT (URL) OF TROPONIN, DEFINED THE 99TH PERCENTILE OF cTnI DISTRIBUTION IN A REFERENCE POPULATION, HAS BEEN CONFIRMED THE DECISION THRESHOLD FOR CA DIAGNOSIS. Performed By: #### B CONTROL SYSTEMS DRAFTING OFFICER, CMADM, CMP ####[facility] [address] [place] [address]DrDoreen Nath GRETTA 178 ng/mL Critically high 9-82 [facility] Comment on above: Performed By: #### B CONTROL SYSTEMS DRAFTING OFFICER, CMADM, CMP ####[facility] [address] [place] [id number] Nath CBC AUTO DIFFon 01-05-2023 BASO # 0.1 103/ul Normal 0.0-0.1 [facility] Comment on above: Performed By: #### C BC #### [facility] [address] [place] [address] Dr. Kasia Nath Basophils/100 WBC (Bld) 0.7 % Normal 0.2-2.0 [facility] Comment on above: Performed By: #### C BC #### [facility] [address] [place] [address] Dr. Kasia Nath EO # 0.3 103/ul Normal 0.0-0.7 [facility] Comment on above: Performed By: #### C BC #### [facility] [address] [place] [address] Dr. Kasia Nath Eosinophils/100 WBC (Bld) 2.9 % Normal 0.9-7.0 [facility] Comment on above: Performed By: #### C BC #### [facility] [address] [place] [address] Dr. Kasia Nath Erythrocyte distribution width (RBC) [Ratio] 13.5 % Normal 11.0-15.0 [facility] Comment on above: Performed By: #### C BC #### [facility] [address] [place] [address] Dr. Kasia Nath Hematocrit (Bld) [Volume fraction] 39.8 % Normal 36.0-48.0 [facility] Comment on above: Performed By: #### C BC #### [facility] [address] [place] [address] Dr. Kasia Nath Hemoglobin (Bld) [Mass/Vol] 13.5 g/dL Normal 12.0-16.0 [facility] Comment on above: Performed By: #### C BC #### [facility] [address] [place] [address] Dr. Kasia Nath IG # 0.02 10e3/ul Normal 0.00-0.03 [facility] Comment on above: Performed By: #### C BC #### [facility] [address] [place] [address] Dr. Kasia Nath IG % 0.2 % Normal 0.0-0.5 [facility] Comment on above: Performed By: #### C BC #### [facility] [address] [place] [address] Dr. Kasia Nath LYMPH # 1.9 103/ul Normal 1.2-3.8 [facility] Comment on above: Performed By: #### C BC #### [facility] [address] [place] [address] Dr. Kasia Nath Lymphocytes/100 WBC (Bld) 22.0 % Normal 20.5-60.0 [facility] Comment on above: Performed By: #### C BC #### [facility] [address] [place] [address] Dr. Kasia Nath MANUAL DIFF REQ NO Normal [facility] Comment on above: Performed By: #### C BC #### [facility] [address] [place] [address] Dr. Kasia Nath MCH (RBC) [Entitic mass] 29.8 pg Normal 26.7-34.0 [facility] Comment on above: Performed By: #### C BC #### [facility] [address] [place] [address] Dr. Kasia Nath MCHC (RBC) [Mass/Vol] 33.9 g/dL Normal 29.9-35.2 [facility] Comment on above: Performed By: #### C BC #### [facility] [address] [place] [address] Dr. Kasia Nath MCV (RBC) [Entitic vol] 87.9 fL Normal 81.0-99.0 [facility] Comment on above: Performed By: #### C BC #### [facility] [address] [place] [address] Dr. Kasia Nath MONO # 0.8 103/ul Normal 0.3-0.8 [facility] Comment on above: Performed By: #### C BC #### [facility] [address] [place] [address] Dr. Kasia Nath Monocytes/100 WBC (Bld) 8.8 % Normal 1.7-12.0 [facility] Comment on above: Performed By: #### C BC #### [facility] [address] [place] [address] Dr. Kasia Nath NEUT # 5.6 103/ul Normal 1.4-6.5 [facility] Comment on above: Performed By: #### C BC #### [facility] [address] [place] [address] Dr. Kasia Nath Neutrophils/100 WBC (Bld) 65.4 % Normal 43.0-75.0 [facility] Comment on above: Performed By: #### C BC #### [facility] [address] [address] [address] Kasia Nath Platelet mean volume (Bld) [Entitic vol] 10.6 fL Normal 9.5-13.5 [facility] Comment on above: Performed By: #### C BC #### [facility] [address] [address] [address] Kasia Nath PLT 222 103/ul Normal 150-450 [facility] Comment on above: Performed By: #### C BC #### [facility] [address] [place] [address] Dr. Kasia Nath RBC 4.53 106/ul Normal 4.20-5.40 [facility] Comment on above: Performed By: #### C BC #### [facility] [address] [place] [address] Dr. Kasia Nath WBC 8.6 103/ul Normal 4.0-11.0 [facility] Comment on above: Performed By: #### C BC #### [facility] [address] [place] [address] Dr. Kasia Nath PROF 14(COMP METB)on 023 Albumin [Mass/Vol] 3.3 g/dL Critically low 3.4-5.0 [facility] Comment on above: Performed By: #### B CONTROL SYSTEMS DRAFTING OFFICER, CMADM, CMP #### [facility] [address] [place] [address] Dr. Kasia Nath Albumin/Globulin [Mass ratio] 0.7 {ratio} Normal [facility] Comment on above: Performed By: #### B CONTROL SYSTEMS DRAFTING OFFICER, CMADM, CMP #### [facility] [address] [place] [address] Dr. Kasia Nath ALP [Catalytic activity/Vol] 106 U/L Normal 46-116 [facility] Comment on above: Performed By: #### B CONTROL SYSTEMS DRAFTING OFFICER, CMADM, CMP #### [facility] [address] [place] [address] Dr. Kasia Nath ALT [Catalytic activity/Vol] 22 U/L Normal 14-59 [facility] Comment on above: Performed By: #### B CONTROL SYSTEMS DRAFTING OFFICER, CMADM, CMP #### [facility] [address] [address] [address] Kasia Nath Anion gap [Moles/Vol] 12.0 mmol/L Normal [facility] Comment on above: Performed By: #### B CONTROL SYSTEMS DRAFTING OFFICER, CMADM, CMP #### [facility] [address] [address] [address] Kasia Nath AST [Catalytic activity/Vol] 23 U/L Normal 15-37 [facility] Comment on above: Performed By: #### B CONTROL SYSTEMS DRAFTING OFFICER, CMADM, CMP #### [facility] [address] [place] [address] Dr. Kasia Nath Bilirubin [Mass/Vol] 0.7 mg/dL Normal 0.2-1.0 [facility] Comment on above: Performed By: #### B CONTROL SYSTEMS DRAFTING OFFICER, CMADM, CMP #### [facility] [address] [place] [address] Dr. Kasia Nath Calcium [Mass/Vol] 8.8 mg/dL Normal 8.5-10.1 [facility] Comment on above: Performed By: #### B CONTROL SYSTEMS DRAFTING OFFICER, CMADM, CMP #### [facility] [address] [place] [address] Dr. Kasia Nath Chloride [Moles/Vol] 98 mmol/L Normal 98-107 [facility] Comment on above: Performed By: #### B CONTROL SYSTEMS DRAFTING OFFICER, CMADM, CMP #### [facility] [address] [place] [address] Dr. Kasia Nath CO2 [Moles/Vol] 30.2 mmol/L Normal 21.0-32.0 [facility] Comment on above: Performed By: #### B CONTROL SYSTEMS DRAFTING OFFICER, CMADM, CMP #### [facility] [address] [place] [address] Dr. Kasia Nath Creatinine [Mass/Vol] 1.19 mg/dL Critically high 0.55-1.02 [facility] Comment on above: Performed By: #### B CONTROL SYSTEMS DRAFTING OFFICER, CMADM, CMP #### [facility] [address] [address] [address] Kasia Nath EGFR-AF NIGERIEN 53 mL/min/1.73m2 Critically low >=60 [facility] Comment on above: Performed By: #### B CONTROL SYSTEMS DRAFTING OFFICER, CMADM, CMP #### [facility] [address] [address] [address] Kasia Nath EGFR-NON AF NIGERIEN 44 mL/min/1.73m2 Critically low >=60 [facility] Comment on above: Performed By: #### B CONTROL SYSTEMS DRAFTING OFFICER, CMADM, CMP #### [facility] [address] [address] [address] Kasia Nath Globulin (S) [Mass/Vol] 4.7 g/dL Normal [facility] Comment on above: Performed By: #### B CONTROL SYSTEMS DRAFTING OFFICER, CMADM, CMP #### [facility] [address] [address] [address] Kasia Nath Glucose [Mass/Vol] 124 mg/dL Critically high 74-106 [facility] Comment on above: Performed By: #### B CONTROL SYSTEMS DRAFTING OFFICER, CMADM, CMP #### [facility] [address] [address] [address] Kasia Nath Potassium [Moles/Vol] 3.2 mmol/L Critically low 3.5-5.1 [facility] Comment on above: Performed By: #### B CONTROL SYSTEMS DRAFTING OFFICER, CMADM, CMP #### [facility] [address] [address] [address] Kasia Nath Protein [Mass/Vol] 8.0 g/dL Normal 6.4-8.2 [facility] Comment on above: Performed By: #### B CONTROL SYSTEMS DRAFTING OFFICER, CMADM, CMP #### [facility] [address] [address] [address] Kasia Nath Sodium [Moles/Vol] 137 mmol/L Normal 136-145 [facility] Comment on above: Performed By: #### B CONTROL SYSTEMS DRAFTING OFFICER, CMADM, CMP #### [facility] [address] [address] [address] Kasia Nath Urea nitrogen [Mass/Vol] 29.0 mg/dL Critically high 7.0-18.0 [facility] Comment on above: Performed By: #### B CONTROL SYSTEMS DRAFTING OFFICER, CMADM, CMP #### [facility] [address] [place], [place] [address] Dr. Kasia Nath Urea nitrogen/Creatinine [Mass ratio] 24.4 mg/mg Normal [facility] Comment on above: Performed By: #### B CONTROL SYSTEMS DRAFTING OFFICER, CMADM, CMP #### [facility] [address] [address] [address] Kasia Nath TROPONIN, HIGH SENSITIVITYon 01-05-2023 HSTROP 18.4 pg/mL Normal 4.0-51.3 [facility] Comment on above: Result Comment: CUT- OFF POINTS HAVE BEEN ESTABLISHED BASED ON THE FOURTH UNIVERSAL DEFINITIONS OF MYOCARDIAL INFARCTION. THE UPPER REFERENCE LIMIT (URL) OF TROPONIN, DEFINED THE 99TH PERCENTILE OF cTnI DISTRIBUTION IN A REFERENCE POPULATION, HAS BEEN CONFIRMED THE DECISION THRESHOLD FOR CA DIAGNOSIS. Performed By: #### H STROPN ####[facility] [address] [place], [place] [address]XzDr. Kasia Nath XR CHEST 1 Von 01-05-2023 [...] BIN ROJAS Date: 2023-01-05 04:39 Normal [facility] BNPon 01-02-2023 Natriuretic peptide B (Bld) [Mass/Vol] 2583.0 pg/mL Critically high <=1,800.0 [facility] Comment on above: Performed By: #### B CONTROL SYSTEMS DRAFTING OFFICER, CMP ####[facility] [address] [place], [place] [address]NkDr. Kasia Nath CBC AUTO DIFFon 01-02-2023 BASO # 0.1 103/ul Normal 0.0-0.1 [facility] Comment on above: Performed By: #### P OCGLUC #### [facility] [address] [address] [address] Kasia Nath Basophils/100 WBC (Bld) 0.9 % Normal 0.2-2.0 [facility] Comment on above: Performed By: #### P OCGLUC #### [facility] [address] [address] [address] Kaisa Nath EO # 0.2 103/ul Normal 0.0-0.7 [facility] Comment on above: Performed By: #### P OCGLUC #### [facility] [address] [address] [address] Kasia Nath Eosinophils/100 WBC (Bld) 2.3 % Normal 0.9-7.0 [facility] Comment on above: Performed By: #### P OCGLUC #### [facility] [address] [address] [address] Kasia Nath Erythrocyte distribution width (RBC) [Ratio] 13.8 % Normal 11.0-15.0 [facility] Comment on above: Performed By: #### P OCGLUC #### [facility] [address] [address] [address] Kasia Nath Hematocrit (Bld) [Volume fraction] 35.5 % Critically low 36.0-48.0 [facility] Comment on above: Performed By: #### P OCGLUC #### [facility] [address] [address] [address] Kasia Nath Hemoglobin (Bld) [Mass/Vol] 11.6 g/dL Critically low 12.0-16.0 [facility] Comment on above: Performed By: #### P OCGLUC #### [facility] [address] [address] [address] Kasia Nath IG # 0.02 10e3/ul Normal 0.00-0.03 [facility] Comment on above: Performed By: #### P OCGLUC #### [facility] [address] [address] [address] Kasia Nath IG % 0.3 % Normal 0.0-0.5 [facility] Comment on above: Performed By: #### P OCGLUC #### [facility] [address] [address] [address] Kasia Nath LYMPH # 2.0 103/ul Normal 1.2-3.8 [facility] Comment on above: Performed By: #### P OCGLUC #### [facility] [address] [place] [address] Dr. Kasia Nath Lymphocytes/100 WBC (Bld) 24.8 % Normal 20.5-60.0 [facility] Comment on above: Performed By: #### P OCGLUC #### [facility] [address] [place] [address] Dr. Kasia Nath MANUAL DIFF REQ NO Normal [facility] Comment on above: Performed By: #### P OCGLUC #### [facility] [address] [place] [address] Dr. Kasia Nath MCH (RBC) [Entitic mass] 28.7 pg Normal 26.7-34.0 [facility] Comment on above: Performed By: #### P OCGLUC #### [facility] [address] [place] [address] Dr. Kasia Nath MCHC (RBC) [Mass/Vol] 32.7 g/dL Normal 29.9-35.2 [facility] Comment on above: Performed By: #### P OCGLUC #### [facility] [address] [place] [address] Dr. Kasia Nath MCV (RBC) [Entitic vol] 87.9 fL Normal 81.0-99.0 [facility] Comment on above: Performed By: #### P OCGLUC #### [facility] [address] [place] [address] Dr. Kasia Nath MONO # 0.8 103/ul Normal 0.3-0.8 [facility] Comment on above: Performed By: #### P OCGLUC #### [facility] [address] [address] [address] Kasia Nath Monocytes/100 WBC (Bld) 9.6 % Normal 1.7-12.0 [facility] Comment on above: Performed By: #### P OCGLUC #### [facility] [address] [address] [address] Kasia Nath NEUT # 5.0 103/ul Normal 1.4-6.5 [facility] Comment on above: Performed By: #### P OCGLUC #### [facility] [address] [address] [address] Kasia Nath Neutrophils/100 WBC (Bld) 62.1 % Normal 43.0-75.0 [facility] Comment on above: Performed By: #### P OCGLUC #### [facility] [address] [address] [address] Kasia Nath Platelet mean volume (Bld) [Entitic vol] 10.7 fL Normal 9.5-13.5 [facility] Comment on above: Performed By: #### P OCGLUC #### [facility] [address] [address] [address] Kasia Nath PLT 204 103/ul Normal 150-450 [facility] Comment on above: Performed By: #### P OCGLUC #### [facility] [address] [address] [address] Kasia Nath RBC 4.04 106/ul Critically low 4.20-5.40 [facility] Comment on above: Performed By: #### P OCGLUC #### [facility] [address] [address] [address] Kasia Nath WBC 8.0 103/ul Normal 4.0-11.0 [facility] Comment on above: Performed By: #### P OCGLUC #### [facility] [address] [address] [address] Kasia Naht GLYCOHEMOGLOBIN A1Con 2022 ADA RECOMMENDATION SEE BELOW Normal [facility] Comment on above: Result Comment: ADA RECOMMENDED LIMIT 4.0 - 6.0 ADA THERAPEUTIC TARGET < 7.0 ACTION SUGGESTED > 7.0 Performed By: #### A 1C ####[facility] [address] [place] [address]DrDoreen Nath Glucose [Mass/Vol] 298 mg/dL Normal [facility] Comment on above: Performed By: #### A 1C ####[facility] [address] [place] [address]DrDoreen Nath HbA1c (Bld) [Mass fraction] 12.0 % Critically high 4.5-6.2 [facility] Comment on above: Performed By: #### A 1C ####[facility] [address] [place] [address]DrDoreen Nath POINT OF CARE GLUCOSEon 12-14 Glucose [Mass/Vol] 227 mg/dL Critically high 74-106 [facility] Comment on above: Performed By: #### C BC #### [facility] [address] [address] [address] Kasia Nath Glucose [Mass/Vol] 214 mg/dL Critically high 74-106 [facility] Comment on above: Performed By: #### C BC #### [facility] [address] [address] [address] Kasia Nath PROF 14(COMP METB)on 023 Albumin [Mass/Vol] 2.6 g/dL Critically low 3.4-5.0 [facility] Comment on above: Performed By: #### B CONTROL SYSTEMS DRAFTING OFFICER, CMP ####[facility] [address] [place] [address]DrDoreen Nath Albumin/Globulin [Mass ratio] 0.6 {ratio} Normal [facility] Comment on above: Performed By: #### B CONTROL SYSTEMS DRAFTING OFFICER, CMP ####[facility] [address] [place] [address]DrDoreen Nath ALP [Catalytic activity/Vol] 94 U/L Normal 46-116 [facility] Comment on above: Performed By: #### B CONTROL SYSTEMS DRAFTING OFFICER, CMP ####[facility] [address] [place] [address]Dr. Kasia Nath ALT [Catalytic activity/Vol] 16 U/L Normal 14-59 [facility] Comment on above: Performed By: #### B CONTROL SYSTEMS DRAFTING OFFICER, CMP ####[facility] [address] [place], [place] [address]Dr. Kasia Nath Anion gap [Moles/Vol] 10.6 mmol/L Normal e [facility] Comment on above: Performed By: #### B CONTROL SYSTEMS DRAFTING OFFICER, CMP ####[facility] [address] [place], [place] [address]Dr. Kasia Nath AST [Catalytic activity/Vol] 15 U/L Normal 15-37 [facility] Comment on above: Performed By: #### B CONTROL SYSTEMS DRAFTING OFFICER, CMP ####[facility] [address] [place], [place] [address]Dr. Kasia Nath Bilirubin [Mass/Vol] 0.8 mg/dL Normal 0.2-1.0 [facility] Comment on above: Performed By: #### B CONTROL SYSTEMS DRAFTING OFFICER, CMP ####[facility] [address] [place], [place] [address]Dr. Kasia Nath Calcium [Mass/Vol] 8.5 mg/dL Normal 8.5-10.1 [facility] Comment on above: Performed By: #### B CONTROL SYSTEMS DRAFTING OFFICER, CMP ####[facility] [address] [place], [place] [address]Dr. Kasia Nath Chloride [Moles/Vol] 102 mmol/L Normal 98-107 [facility] Comment on above: Performed By: #### B CONTROL SYSTEMS DRAFTING OFFICER, CMP ####[facility] [address] [place], [place] [address]Dr. Kasia Nath CO2 [Moles/Vol] 30.2 mmol/L Normal 21.0-32.0 [facility] Comment on above: Performed By: #### B CONTROL SYSTEMS DRAFTING OFFICER, CMP ####[facility] [address] [place], [place] [address]Dr. Kasia Nath Creatinine [Mass/Vol] 0.94 mg/dL Normal 0.55-1.02 [facility] Comment on above: Performed By: #### B CONTROL SYSTEMS DRAFTING OFFICER, CMP ####[facility] [address] [id number]. Kasia Nath EGFR-AF NIGERIEN >60 Normal >=60 [facility] Comment on above: Performed By: #### B CONTROL SYSTEMS DRAFTING OFFICER, CMP ####[facility] [address] [id number]. Kasia Nath EGFR-NON AF NIGERIEN 58 mL/min/1.73m2 Critically low >=60 [facility] Comment on above: Performed By: #### B CONTROL SYSTEMS DRAFTING OFFICER, CMP ####[facility] [address] [id number]. Kasia Nath Globulin (S) [Mass/Vol] 4.0 g/dL Normal [facility] Comment on above: Performed By: #### B CONTROL SYSTEMS DRAFTING OFFICER, CMP ####[facility] [address] [place] [address]Dr. Kasia Nath Glucose [Mass/Vol] 150 mg/dL Critically high 74-106 [facility] Comment on above: Performed By: #### B CONTR[employer] SYSTEMS DRAFTING OFFICER, CMP ####[facility] [address] [place], [place] [address]Dr. Kasia Nath Potassium [Moles/Vol] 3.8 mmol/L Normal 3.5-5.1 [facility] Comment on above: Performed By: #### B CONTROL SYSTEMS DRAFTING OFFICER, CMP ####[facility] [address] [id number]. Kasia Nath Protein [Mass/Vol] 6.6 g/dL Normal 6.4-8.2 [facility] Comment on above: Performed By: #### B CONTR[employer] SYSTEMS DRAFTING OFFICER, CMP ####[facility] [address] [address]Dr. Kasia Nath Sodium [Moles/Vol] 139 mmol/L Normal 136-145 [facility] Comment on above: Performed By: #### B CONTROL SYSTEMS DRAFTING OFFICER, CMP ####[facility] [address] [address]Dr. Kasia Nath Urea nitrogen [Mass/Vol] 24.0 mg/dL Critically high 7.0-18.0 [facility] Comment on above: Performed By: #### B CONTR[employer] SYSTEMS DRAFTING OFFICER, CMP ####[facility] [address] [id number]. Kasia Nath Urea nitrogen/Creatinine [Mass ratio] 25.5 mg/mg Normal [facility] Comment on above: Performed By: #### B CONTROL SYSTEMS DRAFTING OFFICER, CMP ####[facility] [address] [id number]. Kasia Nath BNPon 01-01-2023 Natriuretic peptide B (Bld) [Mass/Vol] 1419.0 pg/mL Normal <=1,800.0 [facility] Comment on above: Performed By: #### B CONTROL SYSTEMS DRAFTING OFFICER #### [facility] [address] [address] [address] Kasia Nath CARDIAC EMERY 3-6on 3 CK [Catalytic activity/Vol] 80 U/L Normal 26-192 [facility] Comment on above: Performed By: #### P OCGLUC #### [facility] [address] [place] [address] Dr. Kasia Nath CK.MB [Mass/Vol] 1.85 ng/mL Normal <=3.60 The [facility] Comment on above: Performed By: #### P OCGLUC #### [facility] [address] [place] [address] Dr. Kasia Nath HSTROP 13.2 pg/mL Normal 4.0-51.3 [facility] Comment on above: Result Comment: CUT- OFF POINTS HAVE BEEN ESTABLISHED BASED ON THE FOURTH UNIVERSAL DEFINITIONS OF MYOCARDIAL INFARCTION. THE UPPER REFERENCE LIMIT (URL) OF TROPONIN, DEFINED THE 99TH PERCENTILE OF cTnI DISTRIBUTION IN A REFERENCE POPULATION, HAS BEEN CONFIRMED THE DECISION THRESHOLD FOR CA DIAGNOSIS. Performed By: #### P OCGLUC #### [facility] [address] [address] [address] Kasia Nath CK [Catalytic activity/Vol] 73 U/L Normal 26-192 [facility] Comment on above: Performed By: #### P OCGLUC #### [facility] [address] [place] [address] Dr. Kasia Nath CK.MB [Mass/Vol] 1.71 ng/mL Normal <=3.60 The [facility] Comment on above: Performed By: #### P OCGLUC #### [facility] [address] [place] [address] Dr. Kasia Nath HSTROP 13.6 pg/mL Normal 4.0-51.3 [facility] Comment on above: Result Comment: CUT- OFF POINTS HAVE BEEN ESTABLISHED BASED ON THE FOURTH UNIVERSAL DEFINITIONS OF MYOCARDIAL INFARCTION. THE UPPER REFERENCE LIMIT (URL) OF TROPONIN, DEFINED THE 99TH PERCENTILE OF cTnI DISTRIBUTION IN A REFERENCE POPULATION, HAS BEEN CONFIRMED THE DECISION THRESHOLD FOR CA DIAGNOSIS. Performed By: #### P OCGLUC #### [facility] [address] [address] [address] Kasia Nath CARDIAC EMERY ADMITon 023 CK [Catalytic activity/Vol] 71 U/L Normal 26-192 [facility] Comment on above: Performed By: #### C BC #### [facility] [address] [place] [address] Dr. Kasia Nath CK.MB [Mass/Vol] 1.69 ng/mL Normal <=3.60 [facility] Comment on above: Performed By: #### C BC #### [facility] [address] [place] [address] Dr. Kasia Nath HSTROP 13.0 pg/mL Normal 4.0-51.3 [facility] Comment on above: Result Comment: CUT- OFF POINTS HAVE BEEN ESTABLISHED BASED ON THE FOURTH UNIVERSAL DEFINITIONS OF MYOCARDIAL INFARCTION. THE UPPER REFERENCE LIMIT (URL) OF TROPONIN, DEFINED THE 99TH PERCENTILE OF cTnI DISTRIBUTION IN A REFERENCE POPULATION, HAS BEEN CONFIRMED THE DECISION THRESHOLD FOR CA DIAGNOSIS. Performed By: #### C BC #### [facility] [address] [place] [address] Dr. Kasia Nath GRETTA 75 ng/mL Normal 9-82 [facility] Comment on above: Performed By: #### C BC #### [facility] [address] [place] [address] Dr. Kasia Nath CBC AUTO DIFFon 01-01-2023 BASO # 0.1 103/ul Normal 0.0-0.1 [facility] Comment on above: Performed By: #### C BC #### [facility] [address] [place] [address] Dr. Kasia Nath Basophils/100 WBC (Bld) 1.1 % Normal 0.2-2.0 [facility] Comment on above: Performed By: #### C BC #### [facility] [address] [place] [address] Dr. Kasia Nath EO # 0.2 103/ul Normal 0.0-0.7 [facility] Comment on above: Performed By: #### C BC #### [facility] [address] [place] [address] Dr. Kasia Nath Eosinophils/100 WBC (Bld) 2.9 % Normal 0.9-7.0 [facility] Comment on above: Performed By: #### C BC #### [facility] [address] [place] [address] Dr. Kasia Nath Erythrocyte distribution width (RBC) [Ratio] 13.8 % Normal 11.0-15.0 [facility] Comment on above: Performed By: #### C BC #### [facility] [address] [place] [address] Dr. Kasia Nath Hematocrit (Bld) [Volume fraction] 36.2 % Normal 36.0-48.0 [facility] Comment on above: Performed By: #### C BC #### [facility] [address] [place] [address] Dr. Kasia Nath Hemoglobin (Bld) [Mass/Vol] 12.1 g/dL Normal 12.0-16.0 [facility] Comment on above: Performed By: #### C BC #### [facility] [address] [place] [address] Dr. Kasia Nath IG # 0.02 10e3/ul Normal 0.00-0.03 [facility] Comment on above: Performed By: #### C BC #### [facility] [address] [place] [address] Dr. Kasia Nath IG % 0.3 % Normal 0.0-0.5 [facility] Comment on above: Performed By: #### C BC #### [facility] [address] [place] [address] Dr. Kasia Nath LYMPH # 1.5 103/ul Normal 1.2-3.8 [facility] Comment on above: Performed By: #### C BC #### [facility] [address] [place] [address] Dr. Kasia Nath Lymphocytes/100 WBC (Bld) 19.9 % Critically low 20.5-60.0 [facility] Comment on above: Performed By: #### C BC #### [facility] [address] [place] [address] Dr. Kasia Nath MANUAL DIFF REQ NO Normal [facility] Comment on above: Performed By: #### C BC #### [facility] [address] [place] [address] Dr. Kasia Nath MCH (RBC) [Entitic mass] 29.7 pg Normal 26.7-34.0 [facility] Comment on above: Performed By: #### C BC #### [facility] [address] [place] [address] Dr. Kasia Nath MCHC (RBC) [Mass/Vol] 33.4 g/dL Normal 29.9-35.2 [facility] Comment on above: Performed By: #### C BC #### [facility] [address] [place] [address] Dr. Kasia Nath MCV (RBC) [Entitic vol] 88.9 fL Normal 81.0-99.0 [facility] Comment on above: Performed By: #### C BC #### [facility] [address] [place] [address] Dr. Kasia Nath MONO # 0.6 103/ul Normal 0.3-0.8 [facility] Comment on above: Performed By: #### C BC #### [facility] [address] [place] [address] Dr. Kasia Nath Monocytes/100 WBC (Bld) 8.0 % Normal 1.7-12.0 [facility] Comment on above: Performed By: #### C BC #### [facility] [address] [address] [address] Kasia Nath NEUT # 5.1 103/ul Normal 1.4-6.5 [facility] Comment on above: Performed By: #### C BC #### [facility] [address] [place], [place] [id number] Dr. Kasia Nath Neutrophils/100 WBC (Bld) 67.8 % Normal 43.0-75.0 [facility] Comment on above: Performed By: #### C BC #### [facility] [address] [place] [address] Dr. Kasia Nath Platelet mean volume (Bld) [Entitic vol] 10.4 fL Normal 9.5-13.5 [facility] Comment on above: Performed By: #### C BC #### [facility] [address] [place] [address] Dr. Kasia Nath PLT 200 103/ul Normal 150-450 [facility] Comment on above: Performed By: #### C BC #### [facility] [address] [place] [address] Dr. Kasia Nath RBC 4.07 106/ul Critically low 4.20-5.40 [facility] Comment on above: Performed By: #### C BC #### [facility] [address] [place] [address] Dr. Kasia Nath WBC 7.5 103/ul Normal 4.0-11.0 [facility] Comment on above: Performed By: #### C BC #### [facility] [address] [place] [address] CHEST WO CONon [...] two extremes (Agatston score 101-1000). [email or web address]://pubs.rsna.org/do i/abs/10.1148/[email or web address] Electronically authenticated by: RENETTA MICHAELS Date: 2023-01-01 14:55 Normal [facility] Covid-19 PCR (CVDTBH)on 12-14 SARS-CoV-2 (COVID-19) RNA FERN+probe Ql (Unsp spec) Not detected Normal NOT DETECTED [facility] Comment on above: Result Comment: When [...] for this test is supported by the Staffing Consultant of Health and Human Service's declaration that [...] longer be used). Performed By: #### C [facility] #### [facility] [address] [address] [address] Kasia Nath ECHO LIMITED STUDYon 023 ECHO LIMITED STUDY Patient: SAIMA CALL Exam Date: 01/01/2023 : 1945 Gender:F Ordering : MARTINE GUERRERO . Admission #: [id number] Family : Order #: [id number] CLICK HERE TO VIEW EXAM ECHOCARDIOGRAM REPORT [...] Kaplan M.D. on 01/01/2023 at 13:19 Normal [facility] GLYCOHEMOGLOBIN A1Con 2022 ADA RECOMMENDATION SEE BELOW Normal [facility] Comment on above: Result Comment: ADA RECOMMENDED LIMIT 4.0 - 6.0 ADA THERAPEUTIC TARGET < 7.0 ACTION SUGGESTED > 7.0 Performed By: #### P OCGLUC #### [facility] [address] [address] [address] Kasia Nath Glucose [Mass/Vol] 318 mg/dL Normal [facility] Comment on above: Performed By: #### P OCGLUC #### [facility] [address] [address] [address] Kasia Nath HbA1c (Bld) [Mass fraction] 12.7 % Critically high 4.5-6.2 [facility] Comment on above: Performed By: #### P OCGLUC #### [facility] [address] [address] [address] Kasia Nath POINT OF CARE GLUCOSEon 12-14 Glucose [Mass/Vol] 162 mg/dL Critically high -106 [facility] Comment on above: Performed By: #### P OCGLUC ####[facility] [address] [address]Dr. Kasia Nath Glucose [Mass/Vol] 213 mg/dL Critically high -106 [facility] Comment on above: Performed By: #### P OCGLUC ####[facility] [address] [address]Dr. Kasia Nath Glucose [Mass/Vol] 248 mg/dL Critically high -106 [facility] Comment on above: Performed By: #### P OCGLUC #### [facility] [address] [address] [address] Kasia Nath PROF CHEM 8 (BAS METB)on Anion gap [Moles/Vol] 11.8 mmol/L Normal [facility] Comment on above: Performed By: #### C BC #### [facility] [address] [address] [address] Kasia Nath Calcium [Mass/Vol] 8.4 mg/dL Critically low 8.5-10.1 [facility] Comment on above: Performed By: #### C BC #### [facility] [address] [address] [address] Kasia Nath Chloride [Moles/Vol] 102 mmol/L Normal 98-107 [facility] Comment on above: Performed By: #### C BC #### [facility] [address] [address] [address] Kasia Nath CO2 [Moles/Vol] 28.4 mmol/L Normal 21.0-32.0 [facility] Comment on above: Performed By: #### C BC #### [facility] [address] [place] [address] Dr. Kasia Nath Creatinine [Mass/Vol] 1.09 mg/dL Critically high 0.55-1.02 [facility] Comment on above: Performed By: #### C BC #### [facility] [address] [place] [address] Dr. Kasia Nath EGFR-AF NIGERIEN 59 mL/min/1.73m2 Critically low >=60 [facility] Comment on above: Performed By: #### C BC #### [facility] [address] [place] [address] Dr. Kasia Nath EGFR-NON AF NIGERIEN 49 mL/min/1.73m2 Critically low >=60 [facility] Comment on above: Performed By: #### C BC #### [facility] [address] [address] [address] Kasia Nath Glucose [Mass/Vol] 247 mg/dL Critically high 74-106 [facility] Comment on above: Performed By: #### C BC #### [facility] [address] [place] [address] Dr. Kasia Nath Potassium [Moles/Vol] 4.2 mmol/L Normal 3.5-5.1 [facility] Comment on above: Performed By: #### C BC #### [facility] [address] [place] [address] Dr. Kasia Nath Sodium [Moles/Vol] 138 mmol/L Normal 136-145 [facility] Comment on above: Performed By: #### C BC #### [facility] [address] [address] [address] Kasia Nath Urea nitrogen [Mass/Vol] 28.0 mg/dL Critically high 7.0-18.0 [facility] Comment on above: Performed By: #### C BC #### [facility] [id number] Kasia Nath Urea nitrogen/Creatinine [Mass ratio] 25.7 mg/mg Normal [facility] Comment on above: Performed By: #### C BC #### [facility] [id number] Kasia Nath XR CHEST 1 Von [...] by: Miranda ALVAREZ Date: 2023-01-01 05:38 Normal [facility] ECHOCARDIO M/2D COMPLETEon 1 11-15-2021 ECHOCARDIO M/2D COMPLETE Patient: JOE CALL Exam Date: 09/15/2022 : 1945 Gender:F Ordering : YAMEL PANDYA [facility] Admission #: [id number] Family : DR SHANTEL STEVEN M.D. Order #: [id number] CLICK HERE TO VIEW EXAM ECHOCARDIOGRAM REPORT [...] M.D. on 09/15/2022 at 18:17 Normal [facility] GI PANEL (PCR)on 05-02-2022 Adenovirus F 40/41 Not detected Normal NOT DETECTED [facility] Comment on above: Performed By: #### P OCGLUC #### [facility] [address] [place] [address] Dr. Kasia Nath Astrovirus Not detected Normal NOT DETECTED [facility] Comment on above: Performed By: #### P OCGLUC #### [facility] [address] [place] [address] Dr. Kasia Nath C. Diff toxin A/B Not detected Normal NOT DETECTED [facility] Comment on above: Performed By: #### P OCGLUC #### [facility] [address] [place] [address] Dr. Kasia Nath Campylobacter Not detected Normal NOT DETECTED [facility] Comment on above: Performed By: #### P OCGLUC #### [facility] [address] [place] [address] Dr. Kasia Nath Cryptosporidium Not detected Normal NOT DETECTED [facility] Comment on above: Performed By: #### P OCGLUC #### [facility] [address] [place] [address] Dr. Kasia Nath Cyclos. Cayetanensis Not detected Normal NOT DETECTED [facility] Comment on above: Performed By: #### P OCGLUC #### [facility] [address] [place] [address] Dr. Kasia Nath E. Coli O157 Not Applicable Normal Not Applicable [facility] Comment on above: Performed By: #### P OCGLUC #### [facility] [address] [place] [address] Dr. Kasia Nath E. histolytica Not detected Normal NOT DETECTED [facility] Comment on above: Performed By: #### P OCGLUC #### [facility] [address] [place] [address] Dr. Kasia Nath EAEC Not detected Normal NOT DETECTED [facility] Comment on above: Performed By: #### P OCGLUC #### [facility] [address] [place] [address] Dr. Kasia Nath EIEC Not detected Normal NOT DETECTED [facility] Comment on above: Performed By: #### P OCGLUC #### [facility] [address] [place] [address] Dr. Kasia Nath EPEC Detected Abnormal NOT DETECTED [facility] Comment on above: Performed By: #### P OCGLUC #### [facility] [address] [place] [address] Dr. Kasia Nath ETEC Not detected Normal NOT DETECTED [facility] Comment on above: Performed By: #### P OCGLUC #### [facility] [address] [place] [address] Dr. Kasia Nath G. Lamblia Not detected Normal NOT DETECTED [facility] Comment on above: Performed By: #### P OCGLUC #### [facility] [address] [place] [address] Dr. Kasia PAKL CONTROLS PASSED Normal [facility] Comment on above: Performed By: #### P OCGLUC #### [facility] [address] [place] [address] Dr. Kasia MOYERNL JUNO HEADER GI PANEL BACTERIA Normal [facility] Comment on above: Performed By: #### P OCGLUC #### [facility] [address] [address] [address] Kasia GE ECOLI GI PANEL DIARRHEAGEN IC E.COLI / SHIGELLA Normal [facility] Comment on above: Performed By: #### P OCGLUC #### [facility] [address] [address] [address] Kasia GE INFO SEE BELOW Normal [facility] Comment on above: Result Comment: EAEC - Enteroaggregative E. Coli EPEC- Enteropathogenic E. Coli ETEC- Enterotoxigenic E. Coli lt/st STEC- Shigella-like toxin-producing E. Coli stx1/stx2 EIEC- Shigella/Enteroinvasive E. Coli Performed By: #### P OCGLUC #### [facility] [address] [address] [address] Kasia GE PARASITES GI PANEL PARASITES Normal [facility] Comment on above: Performed By: #### P OCGLUC #### [facility] [address] [address] [address] Kasia GE VIRUS GI PANEL VIRUSES Normal [facility] Comment on above: Performed By: #### P OCGLUC #### [facility] [address] [address] [address] Kasia Nath Norovirus GI/GII Not detected Normal NOT DETECTED [facility] Comment on above: Performed By: #### P OCGLUC #### [facility] [address] [address] [address] Kasia Nath P. Shigelloides Not detected Normal NOT DETECTED [facility] Comment on above: Performed By: #### P OCGLUC #### [facility] [address] [address] [address] Kasia Nath Rotavirus A Not detected Normal NOT DETECTED [facility] Comment on above: Performed By: #### P OCGLUC #### [facility] [address] [address] [address] Kasia Nath Salmonella Not detected Normal NOT DETECTED [facility] Comment on above: Performed By: #### P OCGLUC #### [facility] [address] [address] [address] Kasia Nath Sapovirus Not detected Normal NOT DETECTED [facility] Comment on above: Performed By: #### P OCGLUC #### [facility] [address] [address] [address] Kasia Nath STEC Not detected Normal NOT DETECTED [facility] Comment on above: Performed By: #### P OCGLUC #### [facility] [address] [address] [address] Kasia Nath Vibrio Not detected Normal NOT DETECTED [facility] Comment on above: Performed By: #### P OCGLUC #### [facility] [address] [address] [address] Kasia Nath Vibrio Cholera Not detected Normal NOT DETECTED [facility] Comment on above: Performed By: #### P OCGLUC #### [facility] [address] [place] [address] Dr. Kasia Nath Y. Enterocolitica Not detected Normal NOT DETECTED [facility] Comment on above: Performed By: #### P OCGLUC #### [facility] [address] [place] [address] Dr. Kasia Nath OCC BLD IMMUNO SCREENon 04-13 OCCULT BLOOD Negative Normal NEGATIVE [facility] Comment on above: Performed By: #### C BC #### [facility] [address] [place] [address] Dr. Kasia Nath XR knee BI 4Von 08-25-2021 XR knee BI 4V [facility] [employer] Other XR knee BI 4V [facility] [employer] Other XR knee BI 4V [address] [place] [address] [employer] Other XR knee BI 4V [address] [employer] Other XR knee BI 4V XRay Report [employer] Other XR knee BI 4V Signed [facility] [employer] Other XR knee BI 4V Patient: Joe Call MR#: [id number] [employer] Other XR knee BI 4V 0 [employer] Other XR knee BI 4V : 1945 Acct:[id number] [employer] Other XR knee BI 4V Age/Sex: 76 / F ADM Date: 08/25/21 [employer] Other XR knee BI 4V Loc: [facility] Room: Type : REG CLI [employer] Other XR knee BI 4V Attending Dr: Akbar Cui II, MD [employer] Other XR knee BI 4V Ordering Provider: Akbar Cui MD [employer] Other XR knee BI 4V Date of Service: 08/25/21 [employer] Other XR knee BI 4V XR/XR knee BI 4V: Pain in right knee;Pain in left knee [employer] Other XR knee BI 4V Copies to: Akbar Cui MD [employer] Other XR knee BI 4V XR knee BI 4V 2020 1:32 PM [employer] Other XR knee BI 4V SIGNS AND SYMPTOMS: Bilateral knee pain with decreased range of motion, weakness [employer] Other XR knee BI 4V PROTOCOL: Frontal, lateral, and sunrise views of the bilateral knees [employer] Other XR knee BI 4V COMPARISON: None [employer] Other XR knee BI 4V FINDINGS: [employer] Other XR knee BI 4V There is mild narrow ing of the medial weightbearing joint spaces. There is mild patellofemoral [employer] Other XR knee BI 4V joint space loss. Th ere is spurring of the poles of the patella bilaterally. There is mild lateral [employer] Other XR knee BI 4V patellar subluxation bilaterally. There is no evidence of acute displaced fracture. Well-corticated [employer] Other XR knee BI 4V ossific structures o r separate from the right medial weightbearing joint space. This may represent a [employer] Other XR knee BI 4V calcified loose bodies. [employer] Other XR knee BI 4V X R/XR knee BI 4V [employer] Other XR knee BI 4V IMPRESSION: [employer] Other XR knee BI 4V Degenerative changes are noted are noted bilaterally, as above. [employer] Other XR knee BI 4V Well-corticated ossi fic structures or separate from the right medial weightbearing joint space. This [employer] Other XR knee BI 4V may represent a calcified loose bodies. [employer] Other XR knee BI 4V No acute displaced fracture. [employer] Other XR knee BI 4V There is mild latera l subluxation of the patella within the patellofemoral joint space bilaterally. [employer] Other XR knee BI 4V Impression dictated by: Emery Lobo M.D.08/25/2021 2:51 PM [employer] Other XR knee BI 4V Dictation Location: [place] [id number] [employer] Other XR knee BI 4V Transcribed By: RAFAEL 08/25/21 1451 [employer] Other XR knee BI 4V Dictated By: Emery Lobo II, MD 08/25/21 1447 [employer] Other XR knee BI 4V Signed By: [employer] Other XR knee BI 4V 08/25/21 145 [facility] Other XR pelvis 1-2Von 08-25-2021 XR pelvis 1-2V XR/XR pelvis 1-2V: Pain in right knee;Pain in left knee [employer] Other XR pelvis 1-2V XR pelvis 1-2V 08/25/2021 1:32 PM [employer] Other XR pelvis 1-2V SIGNS AND SYMPTOMS: Bilateral generalized knee pain, limited range of motion with weakness [employer] Other XR pelvis 1-2V PROTOCOL: Frontal radiograph of the pelvis [employer] Other XR pelvis 1-2V There is mild narrow ing of the weightbearing joint spaces. Mild degenerative changes are noted in [employer] Other XR pelvis 1-2V the symphysis pubis. There is no evidence of fracture or dislocation. Vascular calcifications are [employer] Other XR pelvis 1-2V present in the pelvis. [employer] Other XR pelvis 1-2V X R/XR pelvis 1-2V [employer] Other XR pelvis 1-2V No fracture or dislocation. [employer] Other XR pelvis 1-2V Mild degenerative changes are noted in the joint space of the hips. [employer] Other XR pelvis 1-2V Impression dictated by: Emery Lobo M.D.08/25/2021 2:54 PM [employer] Other XR pelvis 1-2V Transcribed By: RAFAEL 08/25/21 [facility] [employer] Other XR pelvis 1-2V Dictated By: Emery Lobo II, MD 08/25/21 [facility] [employer] Other XR pelvis 1-2V 08/25/21 [facility] [employer] Other Vital Signs Date Time Vital Sign Value Performing Clinician Facility 07-20-2025 14:19-0400 Body height 165.1 cm Shantel Steven MD Work Phone: [facility] 07-20-2025 14:19-0400 Body mass index (BMI) [Ratio] 42.3 kg/m2 Shantel Steven MD Work Phone: [facility] 07-20-2025 14:19-0400 Body temperature 97.3 [degF] Shantel Steven MD Work Phone: [facility] 07-20-2025 14:19-0400 Body weight 115.21 kg Shantel Steven MD Work Phone: [facility] 07-20-2025 14:19-0400 Diastolic blood pressure 73 mm[Hg] Shantel Steven MD Work Phone: [facility] 07-20-2025 14:19-0400 Heart rate 72 /min Shantel Steven MD Work Phone: [facility] 07-20-2025 14:19-0400 SaO2% (BldA) [Mass fraction] 98 % Shantel Steven MD Work Phone: [facility] 07-20-2025 14:19-0400 Systolic blood pressure 170 mm[Hg] Shantel Steven MD Work Phone: [facility] 06-04-2025 10:170400 Body height 165.1 cm Shantel Steven MD Work Phone: [facility] 06-04-2025 10:17-0400 Body mass index (BMI) [Ratio] 43.9 kg/m2 Shantel Steven MD Work Phone: [facility] 06-04-2025 10:170400 Body weight 119.74 kg Shantel Steven MD Work Phone: [facility] 06-04-2025 10:17-0400 Diastolic blood pressure 71 mm[Hg] Shantel Steven MD Work Phone: [facility] 06-04-2025 10:17-0400 Heart rate 57 /min Shantel Steven MD Work Phone: [facility] 06-04-2025 10:17-0400 Systolic blood pressure 161 mm[Hg] Shantel Steven MD Work Phone: [facility] 05-21-2025 11:08-0400 Body height 165.1 cm Shantel Steven MD Work Phone: [facility] 05-21-2025 11:08-0400 Body mass index (BMI) [Ratio] 44.7 kg/m2 Shantel Steven MD Work Phone: [facility] 05-21-2025 11:08-0400 Body weight 122.07 kg Shantel Steven MD Work Phone: [facility] 05-21-2025 11:08-0400 Diastolic blood pressure 93 mm[Hg] Shantel Steven MD Work Phone: [facility] 05-21-2025 11:08-0400 Heart rate 70 /min Shantel Steven MD Work Phone: [facility] 05-21-2025 11:08-0400 Respiratory rate 14 /min Shantel Steven MD Work Phone: [facility] 05-21-2025 11:08-0400 SaO2% (BldA) [Mass fraction] 95 % Shantel Steven MD Work Phone: [facility] 05-21-2025 11:08-0400 Systolic blood pressure 180 mm[Hg] Shantel Steven MD Work Phone: [facility] 04-21-2025 14:20-0400 Body height 165.1 cm Shantel Steven MD Work Phone: [facility] 04-21-2025 14:20-0400 Body mass index (BMI) [Ratio] 42.4 kg/m2 Shantel Steven MD Work Phone: [facility] 04-21-2025 14:20-0400 Body weight 115.66 kg Shantel Steven MD Work Phone: [facility] 04-21-2025 14:20-0400 Diastolic blood pressure 80 mm[Hg] Shantel Steven MD Work Phone: [facility] 04-21-2025 14:20-0400 Heart rate 63 /min Shantel Steven MD Work Phone: [facility] 04-21-2025 14:20-0400 Systolic blood pressure 165 mm[Hg] Shantel Steven MD Work Phone: [facility] 04-16-2025 10:20-0400 Body height 165.1 cm Shantel Steven MD Work Phone: [facility] 04-16-2025 10:20-0400 Body mass index (BMI) [Ratio] 42.4 kg/m2 Shantel Steven MD Work Phone: [facility] 04-16-2025 10:20-0400 Body weight 115.66 kg Shantel Steven MD Work Phone: [facility] 04-16-2025 10:20-0400 Diastolic blood pressure 77 mm[Hg] Shantel Steven MD Work Phone: [facility] 04-16-2025 10:20-0400 Heart rate 63 /min Shantel Steven MD Work Phone: [facility] 04-16-2025 10:20-0400 Respiratory rate 12 /min Shantel Steven MD Work Phone: [facility] 04-16-2025 10:20-0400 SaO2% (BldA) [Mass fraction] 96 % Shantel Steven MD Work Phone: [facility] 04-16-2025 10:20-0400 Systolic blood pressure 137 mm[Hg] Shantel Steven MD Work Phone: [facility] 03-24-2025 13:57-0400 Body height 165.1 cm Shantel Steven MD Work Phone: [facility] 03-24-2025 13:57-0400 Body mass index (BMI) [Ratio] 42.3 kg/m2 Shantel Steven MD Work Phone: [facility] 03-24-2025 13:57-0400 Body weight 115.21 kg Shantel Steven MD Work Phone: [facility] 03-24-2025 13:57-0400 Diastolic blood pressure 76 mm[Hg] Shantel Steven MD Work Phone: [facility] 03-24-2025 13:57-0400 Heart rate 56 /min Shantel Steven MD Work Phone: [facility] 03-24-2025 13:57-0400 Systolic blood pressure 179 mm[Hg] Shantel Steven MD Work Phone: [facility] 03-12-2025 19:10-0400 Diastolic blood pressure 69 mm[Hg] Shantel Steven MD Work Phone: [facility] 03-12-2025 19:10-0400 Heart rate 57 /min Shantel Steven MD Work Phone: [facility] 03-12-2025 19:10-0400 Respiratory rate 18 /min Shantel Steven MD Work Phone: [facility] 03-12-2025 19:10-0400 SaO2% (BldA) [Mass fraction] 99 % Shantel Steven MD Work Phone: [facility] 03-12-2025 19:10-0400 Systolic blood pressure 164 mm[Hg] Shantel Steven MD Work Phone: [facility] 03-12-2025 13:45-0400 Body height 165.1 cm Shantel Steven MD Work Phone: [facility] 03-12-2025 13:45-0400 Body weight 114.7 kg Shantel Steven MD Work Phone: [facility] 03-12-2025 13:44-0400 Body temperature 97.6 [degF] Shantel Steven MD Work Phone: [facility] 03-10-2025 11:05-0400 Body height 165.1 cm [facility] 03-10-2025 11:05-0400 Body mass index (BMI) [Ratio] 41.1 kg/m2 [facility] 03-10-2025 11:05-0400 Body weight 112.1 kg [facility] 03-10-2025 11:05-0400 Diastolic blood pressure 70 mm[Hg] [facility] 03-10-2025 11:05-0400 Systolic blood pressure 145 mm[Hg] [facility] 02-19-2025 08:58-0400 Body height 165.1 cm [facility] 02-19-2025 08:58-0400 Body mass index (BMI) [Ratio] 41.1 kg/m2 [facility] 02-19-2025 08:58-0400 Body temperature 97.3 [degF] [facility] [place] 02-19-2025 08:58-0400 Body weight 112.09 kg [facility] 02-19-2025 08:58-0400 Diastolic blood pressure 58 mm[Hg] [facility] 02-19-2025 08:58-0400 Heart rate 68 /min [facility] 02-19-2025 08:58-0400 Respiratory rate 18 /min [facility] 02-19-2025 08:58-0400 SaO2% (BldA) [Mass fraction] 96 % [facility] 02-19-2025 08:58-0400 Systolic blood pressure 147 mm[Hg] [facility] 02-09-2025 14:03-0400 Body height 165.1 cm [facility] 02-09-2025 14:03-0400 Body mass index (BMI) [Ratio] 42.5 kg/m2 [facility] 02-09-2025 14:03-0400 Body weight 116.11 kg [facility] 02-09-2025 14:03-0400 Diastolic blood pressure 78 mm[Hg] [facility] 02-09-2025 14:03-0400 Heart rate 79 /min [facility] 02-09-2025 14:03-0400 Respiratory rate 12 /min [facility] [place] 02-09-2025 14:03-0400 Systolic blood pressure 185 mm[Hg] [facility] 01-14-2025 10:00-0500 Body height 165.1 cm Shantel Steven MD Work Phone: [facility] 01-14-2025 10:00-0500 Body mass index (BMI) [Ratio] 44.3 kg/m2 Shantel Steven MD Work Phone: [facility] 01-14-2025 10:00-0500 Body weight 120.88 kg Shantel Steven MD Work Phone: [facility] 01-14-2025 10:00-0500 Diastolic blood pressure 80 mm[Hg] Shantel Steven MD Work Phone: [facility] 01-14-2025 10:00-0500 Heart rate 66 /min Shantel Steven MD Work Phone: [facility] 01-14-2025 10:00-0500 SaO2% (BldA) [Mass fraction] 93 % Shantel Steven MD Work Phone: [facility] 01-14-2025 10:00-0500 Systolic blood pressure 176 mm[Hg] Shantel Steven MD Work Phone: [facility] 01-06-2025 15:22-0500 Body height 165.1 cm Shantel Steven MD Work Phone: [facility] 01-06-2025 15:22-0500 Body mass index (BMI) [Ratio] 44.7 kg/m2 Shantel Steven MD Work Phone: [facility] 01-06-2025 15:22-0500 Body weight 122.01 kg Shantel Steven MD Work Phone: [facility] 01-06-2025 15:22-0500 Diastolic blood pressure 83 mm[Hg] Shantel Steven MD Work Phone: [facility] 01-06-2025 15:22-0500 Heart rate 66 /min Shantel Steven MD Work Phone: [facility] 01-06-2025 15:22-0500 Systolic blood pressure 155 mm[Hg] Shantel Steven MD Work Phone: [facility] 12-26-2024 12:58-0500 Body height 165.1 cm Jorge Luis Tupa DO Work Phone: [facility] 12-26-2024 12:58-0500 Body mass index (BMI) [Ratio] 43.6 kg/m2 Jorge Luis Tupa DO Work Phone: [facility] 12-26-2024 12:58-0500 Body weight 118.84 kg Jorge Luis Tupa DO Work Phone: [facility] 12-26-2024 12:58-0500 Diastolic blood pressure 79 mm[Hg] Jorge Luis Tupa DO Work Phone: [facility] 12-26-2024 12:58-0500 Heart rate 92 /min Jorge Luis Tupa DO Work Phone: [facility] 12-26-2024 12:58-0500 SaO2% (BldA) [Mass fraction] 97 % Jorge Luis Tupa DO Work Phone: [facility] 12-26-2024 12:58-0500 Systolic blood pressure 175 mm[Hg] Jorge Luis Tupa DO Work Phone: [facility] 12-09-2024 13:33-0500 Body height 165.1 cm Jorge Luis Tupa DO Work Phone: [facility] 12-09-2024 13:33-0500 Body mass index (BMI) [Ratio] 43.4 kg/m2 Jorge Luis Tupa DO Work Phone: [facility] 12-09-2024 13:33-0500 Body weight 118.55 kg Jorge Luis Tupa DO Work Phone: [facility] 12-09-2024 13:33-0500 Diastolic blood pressure 83 mm[Hg] Jorge Luis Tupa DO Work Phone: [facility] 12-09-2024 13:33-0500 Heart rate 81 /min Jorge Luis Tupa DO Work Phone: [facility] 12-09-2024 13:33-0500 Respiratory rate 14 /min Jorge Luis Tupa DO Work Phone: [facility] 12-09-2024 13:33-0500 Systolic blood pressure 156 mm[Hg] Jorge Luis Tupa DO Work Phone: [facility] 11-11-2024 13:46-0500 Body height 165.1 cm Jorge Luis Tupa DO Work Phone: [facility] 11-11-2024 13:46-0500 Body mass index (BMI) [Ratio] 41.1 kg/m2 Jorge Luis Tupa DO Work Phone: [facility] 11-11-2024 13:46-0500 Body temperature 97.3 [degF] Jorge Luis Tupa DO Work Phone: [facility] 11-11-2024 13:46-0500 Body weight 112.03 kg Jorge Ulis Tupa DO Work Phone: [facility] 11-11-2024 13:46-0500 Diastolic blood pressure 84 mm[Hg] Jorge Luis Tupa DO Work Phone: [facility] 11-11-2024 13:46-0500 Heart rate 95 /min Jorge Luis Tupa DO Work Phone: [facility] 11-11-2024 13:46-0500 Respiratory rate 16 /min Jorge Luis Tupa DO Work Phone: [facility] 11-11-2024 13:46-0500 SaO2% (BldA) [Mass fraction] 96 % Jorge Luis Tupa DO Work Phone: [facility] 11-11-2024 13:46-0500 Systolic blood pressure 145 mm[Hg] Jorge Luis Tupa DO Work Phone: [facility] 11-03-2024 11:43-0500 Body height 165.1 cm Jorge Luis Tupa DO Work Phone: [facility] 11-03-2024 11:43-0500 Body mass index (BMI) [Ratio] 41.1 kg/m2 Jorge Luis Tupa DO Work Phone: [facility] 11-03-2024 11:43-0500 Body weight 112.03 kg Jorge Lius Tupa DO Work Phone: [facility] 11-03-2024 11:43-0500 Diastolic blood pressure 70 mm[Hg] Jorge Luis Tupa DO Work Phone: [facility] 11-03-2024 11:43-0500 Heart rate 78 /min Jorge Luis Tupa DO Work Phone: [facility] 11-03-2024 11:43-0500 SaO2% (BldA) [Mass fraction] 97 % Jorge Luis Tupa DO Work Phone: [facility] 11-03-2024 11:43-0500 Systolic blood pressure 138 mm[Hg] Jorge Luis Tupa DO Work Phone: [facility] 10-25-2024 07:49-0500 Diastolic blood pressure 73 mm[Hg] Jorge Luis Tupa DO Work Phone: [facility] 10-25-2024 07:49-0500 Heart rate 85 /min Jorge Luis Tupa DO Work Phone: [facility] 10-25-2024 07:49-0500 Respiratory rate 18 /min Jorge Luis Tupa DO Work Phone: [facility] 10-25-2024 07:49-0500 SaO2% (BldA) [Mass fraction] 98 % Jorge Luis Tupa DO Work Phone: [facility] 10-25-2024 07:49-0500 Systolic blood pressure 135 mm[Hg] Jorge Luis Tupa DO Work Phone: [facility] 10-25-2024 05:58-0500 Body height 165.1 cm Jorge Luis Tupa DO Work Phone: [facility] 10-25-2024 05:58-0500 Body temperature 98 [degF] Jorge Luis Tupa DO Work Phone: [facility] 10-25-2024 05:58-0500 Body weight 122.92 kg Jorge Luis Tupa DO Work Phone: [facility] 10-22-2024 04:48-0500 Body height 165.1 cm Jorge Luis Tupa DO Work Phone: [facility] 10-22-2024 04:48-0500 Body temperature 98.5 [degF] Jorg Eluis Tupa DO Work Phone: [facility] 10-22-2024 04:48-0500 Body weight 114.8 kg Jorge Luis Tupa DO Work Phone: [facility] 10-22-2024 04:48-0500 Diastolic blood pressure 68 mm[Hg] Jorge Luis Tupa DO Work Phone: [facility] 10-22-2024 04:48-0500 Heart rate 100 /min Jorge Luis Tupa DO Work Phone: [facility] 10-22-2024 04:48-0500 Respiratory rate 18 /min Jorge Luis Tupa DO Work Phone: [facility] 10-22-2024 04:48-0500 SaO2% (BldA) [Mass fraction] 97 % Jorge Luis Tupa DO Work Phone: [facility] 10-22-2024 04:48-0500 Systolic blood pressure 132 mm[Hg] Jorge Luis Tupa DO Work Phone: [facility] 10-20-2024 12:00-0500 Body temperature 97.4 [degF] Jorge Luis Tupa DO Work Phone: [facility] 10-20-2024 12:00-0500 Diastolic blood pressure 73 mm[Hg] Jorge Luis Tupa DO Work Phone: [facility] 10-20-2024 12:00-0500 Heart rate 98 /min Jorge Luis Tupa DO Work Phone: [facility] 10-20-2024 12:00-0500 Respiratory rate 20 /min Jorge Luis Tupa DO Work Phone: [facility] 10-20-2024 12:00-0500 SaO2% (BldA) [Mass fraction] 98 % Jorge Luis Tupa DO Work Phone: [facility] 10-20-2024 12:00-0500 Systolic blood pressure 116 mm[Hg] Jorge Luis Tupa DO Work Phone: [facility] 10-20-2024 05:57-0500 Body weight 110.9 kg Jorge Luis Tupa DO Work Phone: [facility] 10-17-2024 14:18-0500 Body height 165.1 cm Jorge Luis Tupa DO Work Phone: [facility] 10-01-2024 09:51-0500 Body height 165.1 cm Christel Chacon MD Work Phone: [facility] 10-01-2024 09:51-0500 Body mass index (BMI) [Ratio] 42.27 kg/m2 Christel Chacon MD Work Phone: [facility] 10-01-2024 09:51-0500 Body weight 115.21 kg Christel Chacon MD Work Phone: [facility] 10-01-2024 09:51-0500 Diastolic blood pressure 110 mm[Hg] Christel Chacon MD Work Phone: [facility] 10-01-2024 09:51-0500 Systolic blood pressure 138 mm[Hg] Christel Chacon MD Work Phone: [facility] 08-07-2024 10:04-0400 Body height 165.1 cm MD Shantel Steven Work Phone: [facility] 08-07-2024 10:04-0400 Body mass index (BMI) [Ratio] 43.1 kg/m2 MD Shantel Steven Work Phone: [facility] 08-07-2024 10:04-0400 Body weight 117.48 kg MD Shantel Steven Work Phone: [facility] 08-07-2024 10:04-0400 Diastolic blood pressure 69 mm[Hg] MD Shantel Steven Work Phone: [facility] 08-07-2024 10:04-0400 Heart rate 52 /min MD Shantel Steven Work Phone: [facility] 08-07-2024 10:04-0400 SaO2% (BldA) [Mass fraction] 93 % MD Shantel Steven Work Phone: [facility] 08-07-2024 10:04-0400 Systolic blood pressure 117 mm[Hg] MD Shantel Steven Work Phone: [facility] 07-22-2024 13:15-0400 Body height 165.1 cm Christel Chacon MD Work Phone: [facility] 07-22-2024 13:15-0400 Body mass index (BMI) [Ratio] 42.6 kg/m2 Christel Chacon MD Work Phone: [facility] 07-22-2024 13:15-0400 Body weight 116.12 kg Christel Chacon MD Work Phone: [facility] 07-22-2024 13:15-0400 Diastolic blood pressure 82 mm[Hg] Christel Chacon MD Work Phone: [facility] 07-22-2024 13:15-0400 Systolic blood pressure 130 mm[Hg] Christel Chacon MD Work Phone: [facility] 07-16-2024 10:20-0400 Body height 165.1 cm MD Shantel Steven Work Phone: [facility] 07-16-2024 10:20-0400 Body mass index (BMI) [Ratio] 43.1 kg/m2 MD Shantel Steven Work Phone: [facility] 07-16-2024 10:20-0400 Body weight 117.48 kg MD Shantel Steven Work Phone: [facility] 07-16-2024 10:20-0400 Diastolic blood pressure 80 mm[Hg] MD Shantel Steven Work Phone: [facility] 07-16-2024 10:20-0400 Heart rate 60 /min MD Shantel Steven Work Phone: [facility] 07-16-2024 10:20-0400 Systolic blood pressure 151 mm[Hg] MD Shantel Steven Work Phone: [facility] 07-10-2024 13:40-0400 Body height 165.1 cm Lizett Gillmor [employer] Work Phone: [facility] 07-10-2024 13:40-0400 Body mass index (BMI) [Ratio] 42.43 kg/m2 Lizett Gillmor [employer] Work Phone: [facility] 07-10-2024 13:40-0400 Body weight 115.67 kg Lizett Gillmor [employer] Work Phone: [facility] 07-10-2024 13:40-0400 Diastolic blood pressure 86 mm[Hg] Lizett Gillmor [employer] Work Phone: [facility] 07-10-2024 13:40-0400 Systolic blood pressure 132 mm[Hg] Lizett Gillmor [employer] Work Phone: [facility] 07-07-2024 11:41-0400 Body height 165.1 cm MD Shantel Steven Work Phone: [facility] 07-07-2024 11:41-0400 Body mass index (BMI) [Ratio] 42.4 kg/m2 MD Shantel Steven Work Phone: [facility] 07-07-2024 11:41-0400 Body weight 115.66 kg MD Shantel Steven Work Phone: [facility] 07-07-2024 11:41-0400 Diastolic blood pressure 79 mm[Hg] MD Shantel Steven Work Phone: [facility] 07-07-2024 11:41-0400 Heart rate 66 /min MD Shantel Steven Work Phone: [facility] 07-07-2024 11:41-0400 Systolic blood pressure 132 mm[Hg] MD Shantel Steven Work Phone: [facility] 06-16-2024 13:08-0400 Body height 165.1 cm MD Shantel Steven Work Phone: [facility] 06-16-2024 13:08-0400 Body mass index (BMI) [Ratio] 41.9 kg/m2 MD Shantel Steven Work Phone: [facility] 06-16-2024 13:08-0400 Body weight 114.3 kg MD Shantel Steven Work Phone: [facility] 06-16-2024 13:08-0400 Diastolic blood pressure 73 mm[Hg] MD Shantel Steven Work Phone: [facility] 06-16-2024 13:08-0400 Heart rate 55 /min MD Shantel Steven Work Phone: [facility] 06-16-2024 13:08-0400 Systolic blood pressure 137 mm[Hg] MD Shantel Steven Work Phone: [facility] 06-05-2024 11:51-0400 Body height 165.1 cm MD Shantel Steven Work Phone: [facility] 06-05-2024 11:51-0400 Body mass index (BMI) [Ratio] 43.2 kg/m2 MD Shantel Steven Work Phone: [facility] 06-05-2024 11:51-0400 Body temperature 96.6 [degF] MD Shantel Steven Work Phone: [facility] 06-05-2024 11:51-0400 Body weight 117.7 kg MD Shantel Steven Work Phone: [facility] 06-05-2024 11:51-0400 Diastolic blood pressure 74 mm[Hg] MD Shantel Steven Work Phone: [facility] 06-05-2024 11:51-0400 Heart rate 63 /min MD Shantel Steven Work Phone: [facility] 06-05-2024 11:51-0400 Respiratory rate 18 /min MD Shantel Steven Work Phone: [facility] 06-05-2024 11:51-0400 SaO2% (BldA) [Mass fraction] 97 % MD Shantel Steven Work Phone: [facility] 06-05-2024 11:51-0400 Systolic blood pressure 138 mm[Hg] MD Shantel Steven Work Phone: [facility] 05-22-2024 09:18-0400 Heart rate 55 /min MD Shantel Steven Work Phone: [facility] 05-22-2024 09:09-0400 Body temperature 97.8 [degF] MD Shantel Steven Work Phone: [facility] 05-22-2024 09:09-0400 Diastolic blood pressure 64 mm[Hg] MD Shantel Steven Work Phone: [facility] 05-22-2024 09:09-0400 Respiratory rate 22 /min MD Shantel Steven Work Phone: [facility] 05-22-2024 09:09-0400 SaO2% (BldA) [Mass fraction] 94 % MD Shantel Steven Work Phone: [facility] 05-22-2024 09:09-0400 Systolic blood pressure 140 mm[Hg] MD Shantel Steven Work Phone: [facility] 05-22-2024 09:08-0400 Body height 165.1 cm MD Shantel Steven Work Phone: [facility] 05-22-2024 09:08-0400 Body weight 117.48 kg MD Shantel Steven Work Phone: [facility] 05-19-2024 14:16-0400 Body height 165.1 cm MD Shantel Steven Work Phone: [facility] 05-19-2024 14:16-0400 Body mass index (BMI) [Ratio] 43.1 kg/m2 MD Shantel Steven Work Phone: [facility] 05-19-2024 14:16-0400 Body weight 117.48 kg MD Shantel Steven Work Phone: [facility] 05-19-2024 14:16-0400 Diastolic blood pressure 72 mm[Hg] MD Shnatel Steven Work Phone: [facility] 05-19-2024 14:16-0400 Heart rate 56 /min MD Shantel Steven Work Phone: [facility] 05-19-2024 14:16-0400 Systolic blood pressure 133 mm[Hg] MD Shantel Steven Work Phone: [facility] 05-07-2024 11:52-0400 Body height 165.1 cm MD Shantel Steven Work Phone: [facility] 05-07-2024 11:52-0400 Body mass index (BMI) [Ratio] 41.5 kg/m2 MD Shantel Steven Work Phone: [facility] 05-07-2024 11:52-0400 Body temperature 98.5 [degF] MD Shantel Steven Work Phone: [facility] 05-07-2024 11:52-0400 Body weight 113.39 kg MD Shantel Steven Work Phone: [facility] 05-07-2024 11:52-0400 Diastolic blood pressure 81 mm[Hg] MD Shantel Steven Work Phone: [facility] 05-07-2024 11:52-0400 Heart rate 91 /min MD Shantel Steven Work Phone: [facility] 05-07-2024 11:52-0400 Systolic blood pressure 141 mm[Hg] MD Shantel Steven Work Phone: [facility] 04-29-2024 12:54-0400 Body height 165.1 cm MD Shantel Setven Work Phone: [facility] 04-29-2024 12:54-0400 Body mass index (BMI) [Ratio] 41.5 kg/m2 MD Shantel Steven Work Phone: [facility] 04-29-2024 12:54-0400 Body weight 113.39 kg MD Shantel Steven Work Phone: [facility] 04-29-2024 12:54-0400 Diastolic blood pressure 58 mm[Hg] MD Shantel Steven Work Phone: [facility] 04-29-2024 12:54-0400 Heart rate 54 /min MD Shantel Steven Work Phone: [facility] 04-29-2024 12:54-0400 Systolic blood pressure 90 mm[Hg] MD Shantel Steven Work Phone: [facility] 04-03-2024 11:29-0400 Body height 165.1 cm MD Shantel Steven Work Phone: [facility] 04-03-2024 11:29-0400 Body mass index (BMI) [Ratio] 43.7 kg/m2 MD Shantel Steven Work Phone: [facility] 04-03-2024 11:29-0400 Body weight 119.29 kg MD Shantel Steven Work Phone: [facility] 04-03-2024 11:29-0400 Diastolic blood pressure 71 mm[Hg] MD Shantel Steven Work Phone: [facility] 04-03-2024 11:29-0400 Heart rate 56 /min MD Shantel Steven Work Phone: [facility] 04-03-2024 11:29-0400 Systolic blood pressure 116 mm[Hg] MD Shantel Steven Work Phone: [facility] 03-25-2024 15:15-0400 Body height 165.1 cm MD Shantel Steven Work Phone: [facility] 03-25-2024 15:15-0400 Body mass index (BMI) [Ratio] 43.9 kg/m2 MD Shantel Steven Work Phone: [facility] 03-25-2024 15:15-0400 Body weight 119.74 kg MD Shantel Steven Work Phone: [facility] 03-25-2024 15:15-0400 Diastolic blood pressure 87 mm[Hg] MD Shantel Steven Work Phone: [facility] 03-25-2024 15:15-0400 Heart rate 66 /min MD Shantel Steven Work Phone: [facility] 03-25-2024 15:15-0400 Systolic blood pressure 125 mm[Hg] MD Shantel Steven Work Phone: [facility] 02-15-2024 14:18-0400 Body height 165.1 cm [facility] 02-15-2024 14:18-0400 Body mass index (BMI) [Ratio] 38.6 kg/m2 [facility] 02-15-2024 14:18-0400 Body weight 105.23 kg [facility] 02-15-2024 14:18-0400 Diastolic blood pressure 66 mm[Hg] [facility] 02-15-2024 14:18-0400 Heart rate 55 /min [facility] 02-15-2024 14:18-0400 Systolic blood pressure 114 mm[Hg] [facility] 01-18-2024 10:23-0500 Body height 165.1 cm [facility] 01-18-2024 10:23-0500 Body mass index (BMI) [Ratio] 43.2 kg/m2 [facility] 01-18-2024 10:23-0500 Body weight 117.93 kg [facility] 01-18-2024 10:23-0500 Diastolic blood pressure 70 mm[Hg] [facility] 01-18-2024 10:23-0500 Heart rate 98 /min [facility] 01-18-2024 10:23-0500 SaO2% (BldA) [Mass fraction] 65 % [facility] 01-18-2024 10:23-0500 Systolic blood pressure 110 mm[Hg] [facility] 10-23-2023 16:00-0500 Body height 165.1 cm [employer] Other [facility] [employer] Other 10-23-2023 16:00-0500 Body mass index (BMI) [Ratio] 44.63 kg/m2 [employer] Other [employer] Other 10-23-2023 16:00-0500 Body temperature 96.8 [degF] [employer] Other [employer] Other 10-23-2023 16:00-0500 Body weight 121.66 kg [employer] Other [employer] Other 10-23-2023 16:00-0500 Diastolic blood pressure 60 mm[Hg] [employer] Other [employer] Other 10-23-2023 16:00-0500 Respiratory rate 18 /min Jaleesa Vanessa Other [employer] Other 10-23-2023 16:00-0500 SaO2% (BldA) [Mass fraction] 99 % [employer]aleesa Vanessa Other [employer] Other 10-23-2023 16:00-0500 Systolic blood pressure 124 mm[Hg] [employer] Vanessa Other [employer] Other 10-18-2023 13:45-0500 Body height 165.1 cm Shantel Steven Other [employer] Other 10-18-2023 13:45-0500 Body mass index (BMI) [Ratio] 44.86 kg/m2 Shantel Steven Other [employer] Other 10-18-2023 13:45-0500 Body temperature 97.3 [degF] Shantel Steven Other [employer] Other 10-18-2023 13:45-0500 Body weight 122.29 kg Shantel Steven Other [employer] Other 10-18-2023 13:45-0500 Diastolic blood pressure 84 mm[Hg] Shantel Steven Other [employer] Other 10-18-2023 13:45-0500 SaO2% (BldA) [Mass fraction] 97 % Shantel Steven Other [employer] Other 10-18-2023 13:45-0500 Systolic blood pressure 132 mm[Hg] Shantel Steven Other [employer] Other 09-04-2023 14:00-0400 Body height 165.1 cm Shantel Steven Other [employer] Other 09-04-2023 14:00-0400 Body mass index (BMI) [Ratio] 43.06 kg/m2 Shantel Steven Other [employer] Other 09-04-2023 14:00-0400 Body weight 117.39 kg Shantel Steven Other [employer] Other 09-04-2023 14:00-0400 Diastolic blood pressure 69 mm[Hg] Shantel Steven Other [employer] Other 09-04-2023 14:00-0400 Systolic blood pressure 127 mm[Hg] Shantel Steven Other [employer] Other 07-17-2023 10:00-0400 Body height 165.1 cm Shantel Steven Other [employer] Other 07-17-2023 10:00-0400 Body mass index (BMI) [Ratio] 43.03 kg/m2 Shantel Steven Other [employer] Other 07-17-2023 10:00-0400 Body weight 117.3 kg Shantel Steven Other [employer] Other 07-17-2023 10:00-0400 Diastolic blood pressure 76 mm[Hg] Shantel Steven Other [employer] Other 07-17-2023 10:00-0400 Systolic blood pressure 164 mm[Hg] Shantel Steven Other [employer] Other 04-30-2023 14:30-0400 Body height 165.1 cm Shantel Steven Other [employer] Other 04-30-2023 14:30-0400 Body mass index (BMI) [Ratio] 43.43 kg/m2 Shantel Steven Other [employer] Other 04-30-2023 14:30-0400 Body weight 118.39 kg Shantel Steven Other [employer] Other 04-30-2023 14:30-0400 Diastolic blood pressure 75 mm[Hg] Shantel Steven Other [employer] Other 04-30-2023 14:30-0400 Systolic blood pressure 135 mm[Hg] Shantel Steven Other [employer] Other 03-09-2023 12:15-0400 Body height 165.1 cm Shantel Steven Other [employer] Other 03-09-2023 12:15-0400 Body mass index (BMI) [Ratio] 43.59 kg/m2 Shantel Steven Other [employer] Other 03-09-2023 12:15-0400 Body weight 118.84 kg Shantel Steven Other [employer] Other 03-09-2023 12:15-0400 Diastolic blood pressure 82 mm[Hg] Shantel Steven Other [employer] Other 03-09-2023 12:15-0400 SaO2% (BldA) [Mass fraction] 97 % Shantel Steven Other [employer] Other 03-09-2023 12:15-0400 Systolic blood pressure 130 mm[Hg] Shantel Steven Other [employer] Other 02-20-2023 10:00-0400 Body height 165.1 cm Shantel Steven Other [employer] Other 02-20-2023 10:00-0400 Body mass index (BMI) [Ratio] 41.93 kg/m2 Shantel Steven Other [employer] Other 02-20-2023 10:00-0400 Body weight 114.31 kg Shantel Steven Other [employer] Other 02-20-2023 10:00-0400 Diastolic blood pressure 84 mm[Hg] Shantel Steven Other [employer] Other 02-20-2023 10:00-0400 Systolic blood pressure 132 mm[Hg] Shantel Steven Other [employer] Other 08-04-2022 13:33-0400 Blood Pressure Location [facility] 08-04-2022 13:33-0400 Diastolic blood pressure 88 mm[Hg] [facility] 08-04-2022 13:33-0400 Heart rate 76 /min [facility] 08-04-2022 13:33-0400 Respiratory rate 16 /min [facility] 08-04-2022 13:33-0400 Systolic blood pressure 130 mm[Hg] Bin NILL [facility] 08-25-2021 14:30-0400 Body height 165.1 cm Akbar Cui II Other [employer] Other 08-25-2021 14:30-0400 Body mass index (BMI) [Ratio] 43.26 kg/m2 Akbar Cui II Other [facility] [employer] Other 08-25-2021 14:30-0400 Body weight 117.94 kg Akbar Cui II Other [facility] [employer] Other Encounters Encounter Date Encounter Type Care Provider Facility Start: 07-20-2025 End: 07-20-2025 ambulatory Shantel Steven MD Work Phone: [facility] Work Phone: Start: 07-20-2025 End: 07-20-2025 Shantel Steven MD -[facility] Work Phone: Start: 07-01-2025 Wandy Alvarez CMA -[facility] Work Phone: Start: 07-01-2025 Wandy Alvarez CMA -FP [facility] Work Phone: Start: 06-30-2025 Monica Stewart MD -[facility] Work Phone: Start: 06-29-2025 Monica Stewart MD -[facility] Work Phone: Start: 06-28-2025 Jarred Cardona DO -[facility] Work Phone: Start: 06-22-2025 Wandy Alvarez CMA -FP [facility] Work Phone: Start: 06-19-2025 Outside Provider -[facility] Work Phone: Start: 06-15-2025 End: 06-15-2025 ambulatory Shantel Steven MD Work Phone: [facility] Work Phone: Start: 06-15-2025 End: 06-15-2025 Shantel Steven MD -[facility] Work Phone: Start: 06-10-2025 Wandy Alvarez CMA -FP [facility] Work Phone: Start: 06-10-2025 Osbaldo Marlow MD -[facility] Work Phone: Start: 06-09-2025 Osbaldo Marlow MD -[facility] Work Phone: Start: 06-08-2025 Jarred Cardona -[facility] Work Phone: Start: 06-04-2025 End: 06-04-2025 ambulatory Shantel Steven MD Work Phone: [facility] Work Phone: Start: 06-04-2025 End: 06-04-2025 Shantel Steven MD -[facility] Work Phone: Start: 06-02-2025 End: 06-02-2025 ambulatory Shantel Steven MD Work Phone: [facility] Work Phone: Start: 06-02-2025 End: 06-02-2025 Shantel Steven MD -[facility] Work Phone: Start: 05-31-2025 Monica Stewart MD -[facility] Work Phone: Start: 05-30-2025 Monica Stewart MD -[facility] Work Phone: Start: 05-29-2025 Monica Stewart MD -[facility] Work Phone: Start: 05-28-2025 Analisa Bryant MD [facility] Work Phone: Start: 05-21-2025 End: 05-21-2025 ambulatory Shantel Steven MD Work Phone: [facility] Work Phone: Start: 05-21-2025 End: 05-21-2025 Patient encounter procedure Shantel Steven MD -[facility] Work Phone: Start: 05-21-2025 End: 05-21-2025 Shantel Steven MD -[facility] Work Phone: Start: 05-13-2025 Non-patient / Non-visit Wandy Bowen [facility] -[facility] Work Phone: Start: 05-13-2025 Wandy Alvarez [facility] -FP [facility] Work Phone: Start: 05-11-2025 Non-patient / Non-visit Cheng Ross [facility] Work Phone: Start: 05-11-2025 Cheng Ross [facility] Work Phone: Start: 04-22-2025 End: 04-22-2025 ambulatory [facility] Start: 04-21-2025 End: 04-21-2025 ambulatory Shantel Steven MD Work Phone: [facility] Work Phone: Start: 04-21-2025 End: 04-21-2025 Patient encounter procedure Cheng Ross [facility] Work Phone: Start: 04-21-2025 End: 04-21-2025 Shantel Steven MD Work Phone: [facility] Work Phone: Start: 04-16-2025 End: 04-16-2025 ambulatory Shantel Steven MD Work Phone: [facility] Work Phone: Start: 04-16-2025 End: 04-16-2025 Patient encounter procedure Shantel Steven MD -[facility] Work Phone: Start: 04-16-2025 End: 04-16-2025 Shantel Steven MD Work Phone: [facility] Work Phone: Start: 03-24-2025 End: 03-24-2025 ambulatory Shantel Steven MD Work Phone: [facility] Work Phone: Start: 03-24-2025 End: 03-24-2025 Patient encounter procedure Shantel Steven MD -[facility] Work Phone: Start: 03-24-2025 End: 03-24-2025 Shantel Steven MD Work Phone: [facility] Work Phone: Start: 03-13-2025 Non-patient / Non-visit Wandy Bowen CMA -[facility] Work Phone: Start: 03-13-2025 Shantel Cardona Work Phone: [facility] Work Phone: Start: 03-12-2025 End: 03-12-2025 Shantel Steven MD Work Phone: [facility] Work Phone: Start: 03-12-2025 End: 03-12-2025 Emergency department patient visit Shantel Steven MD Work Phone: [facility] Work Phone: Start: 03-10-2025 End: 03-10-2025 ambulatory [facility] Work Phone: Start: 03-10-2025 End: 03-10-2025 Patient encounter procedure [facility] Work Phone: Start: 03-10-2025 End: 03-10-2025 Shantel Steven MD Work Phone: [facility] Work Phone: Start: 03-02-2025 End: 03-02-2025 ambulatory [facility] Start: 03-02-2025 Non-patient / [facility]: Start: 03-02-2025 Shantel Cardona Work Phone: [facility] Work Phone: Start: 02-19-2025 End: 02-19-2025 ambulatory [facility] Work Phone: Start: 02-19-2025 End: 02-19-2025 Patient encounter procedure [facility] Work Phone: Start: 02-19-2025 End: 02-19-2025 Shantel Steven MD Work Phone: [facility] Work Phone: Start: 02-09-2025 End: 02-09-2025 ambulatory [facility] Work Phone: Start: 02-09-2025 End: 02-09-2025 Patient encounter procedure [facility] Work Phone: Start: 02-09-2025 End: 02-09-2025 Shantel Steven MD Work Phone: [facility] Work Phone: Start: 01-28-2025 End: 01-28-2025 ambulatory [facility] Start: 01-28-2025 Non-patient / Non-visit [facility] Work Phone: Start: 01-28-2025 Shantel Cardona Work Phone: [facility] Work Phone: Start: 01-27-2025 Non-patient / Non-visit [facility] Work Phone: Start: 01-27-2025 Shantel Cardona Work Phone: [facility] Work Phone: Start: 01-26-2025 Non-patient / Non-visit [facility] Work Phone: Start: 01-26-2025 Shantel Cardona Work Phone: [facility] Work Phone: Start: 01-25-2025 Non-patient / Non-visit [facility] Work Phone: Start: 01-25-2025 Shantel Cardona Work Phone: [facility] Work Phone: Start: 01-21-2025 End: 01-21-2025 ambulatory Shantel Steven MD Work Phone: [facility] Work Phone: Start: 01-21-2025 End: 01-21-2025 Patient encounter procedure Shantel Steven MD Work Phone: [facility] Work Phone: Start: 01-21-2025 End: 01-21-2025 Shantel Steven MD Work Phone: [facility] Work Phone: Start: 01-14-2025 End: 01-14-2025 ambulatory Shantel Steven MD Work Phone: [facility] Work Phone: Start: 01-14-2025 End: 01-14-2025 Patient encounter procedure Shantel Steven MD Work Phone: [facility] Work Phone: Start: 01-14-2025 End: 01-14-2025 Shantel Steven MD Work Phone: [facility] Work Phone: Start: 01-07-2025 End: 01-07-2025 Telephone encounter Christel Chacon MD Work Phone: [facility] Comment on above: referral to Dr Estrada baer Start: 01-06-2025 End: 01-06-2025 Patient encounter procedure Shantel Steven MD Work Phone: [facility] Work Phone: Start: 01-06-2025 End: 01-06-2025 Shantel Steven MD Work Phone: [facility] Work Phone: Start: 01-06-2025 End: 01-06-2025 Telephone encounter Christel Chacon MD Work Phone: [facility] Comment on above: sleep study appt Start: 12-26-2024 End: 12-26-2024 ambulatory Jorge Luisgabrielle Zavala DO Work Phone: [facility] Work Phone: Start: 12-26-2024 End: 12-26-2024 Patient encounter procedure Jorge Luis Zavala DO Work Phone: [facility] Work Phone: Start: 12-26-2024 End: 12-26-2024 Shantel Steven MD Work Phone: [facility] Work Phone: Start: 12-18-2024 End: 12-18-2024 ambulatory FRANCHESCA PERAZA Facility:[facility] Start: 12-18-2024 End: 12-18-2024 Patient encounter procedure FRANCHESCA PERAZA [facility] Start: 12-09-2024 End: 12-09-2024 Patient encounter procedure Jorge Luis Zavala DO Work Phone: [facility] Work Phone: Start: 12-08-2024 Non-patient / Non-visit Oni Zavala DO Work Phone: [facility] Work Phone: Start: 12-08-2024 End: 12-08-2024 ambulatory FRANCHESCA E STU Facility:[facility] Start: 12-08-2024 End: 12-08-2024 Patient encounter procedure FRANCHESCA PERAZA [facility] Start: 12-04-2024 Non-patient / Non-visit Oni miranda Tupa DO Work Phone: [facility] Work Phone: Start: 12-04-2024 Non-patient / Non-visit Oni miranda Tupa DO Work Phone: [facility] Work Phone: Start: 12-02-2024 End: 12-02-2024 ambulatory [facility] Start: 11-13-2024 End: 11-13-2024 ambulatory FRANCHESCA E STU Facility:[facility] Start: 11-13-2024 End: 11-13-2024 Patient encounter procedure FRANCHESCA Jenny PERAZA [facility] Start: 11-11-2024 End: 11-11-2024 Patient encounter procedure Jorge Luis Camargoalejandro DO Work Phone: [facility] Work Phone: Start: 11-10-2024 Non-patient / Non-visit Oni miranda Tupa DO Work Phone: [facility] Work Phone: Start: 11-06-2024 ambulatory FRANCHESCA E STU Facili ty:[facility] Start: 11-04-2024 End: 11-04-2024 ambulatory FRANCHESCA E STU Facility:[facility] Start: 11-04-2024 End: 11-04-2024 Patient encounter procedure FRANCHESCA PERAZA [facility] Start: 11-03-2024 End: 11-03-2024 Patient encounter procedure Jorge Luis Camargopa DO Work Phone: [facility] Work Phone: Start: 10-31-2024 [facility] Start: 10-25-2024 End: 10-25-2024 Emergency department patient visit Jorge Luis Camargopa DO Work Phone: [facility] Work Phone: Start: 10-24-2024 Non-patient / Non-visit Oni k Tupa DO Work Phone: [facility] Work Phone: Start: 10-22-2024 End: 10-22-2024 Emergency department patient visit Jorge Luis Camargopa DO Work Phone: [facility] Work Phone: Start: 10-21-2024 Non-patient / Non-visit Oni k Tupa DO Work Phone: [facility] Work Phone: Start: 10-17-2024 Non-patient / Non-visit Oni k Tupa DO Work Phone: [facility] Physician [facility] Work Phone: Start: 10-17-2024 Non-patient / Non-visit Oni k Tupa DO Work Phone: [facility] Physician [facility] Work Phone: Start: 10-16-2024 Non-patient / Non-visit Oni k Tupa DO Work Phone: [facility] Physician [facility] Work Phone: Start: 10-16-2024 End: 10-20-2024 Evaluation and management of inpatient Jorge Luis Zavala DO Work Phone: [facility] [place] [facility] Work Phone: Start: 10-08-2024 End: 10-08-2024 ambulatory [facility] Start: 10-01-2024 End: 10-01-2024 Bamboo flowsheet [...] / Non-visit Oni Zavala DO Work Phone: [facility] Work Phone: Start: 09-26-2024 End: 09-30-2024 Telephone encounter Christel Chacon MD Work Phone: [facility] Start: 09-03-2024 ambulatory [facility] Start: 08-20-2024 End: 08-20-2024 ambulatory [facility] Start: 08-07-2024 End: 08-07-2024 ambulatory MD Shantel Steven Work Phone: [facility] Work Phone: Start: 08-07-2024 End: 08-07-2024 Patient encounter procedure MD Shantel Steven Work Phone: [facility] Work Phone: Start: 07-30-2024 Non-patient / Non-visit MD Alessia Steven Work Phone: [facility] Work Phone: Start: 07-25-2024 Non-patient / Non-visit MD Alessia Steven Work Phone: [facility] Work Phone: Start: 07-24-2024 Non-patient / Non-visit MD Alessia Steven Work Phone: [facility] Work Phone: Start: 07-22-2024 [...] Shantel Steven Work Phone: [facility] Work Phone: Start: 07-17-2024 End: 07-17-2024 ambulatory MD Shantel Steven Work Phone: [facility] Work Phone: Start: 07-17-2024 End: 07-17-2024 Departed Referred MD Shantel Steven Work Phone: [facility] [place] Work Phone: Start: 07-17-2024 End: 07-17-2024 MD Shantel Steven Work Phone: [facility] Work Phone: Start: 07-16-2024 End: 07-16-2024 ambulatory MD Shantel Steven Work Phone: [facility] Work Phone: Start: 07-16-2024 End: 07-16-2024 Patient encounter procedure MD Shantel Steven Work Phone: [facility] Work Phone: Start: 07-16-2024 End: 07-16-2024 MD Shantel Steven Work Phone: [facility] Work Phone: Start: 07-15-2024 End: 07-15-2024 Non-patient / Non-visit MD Shantel Steven Work Phone: [facility] Work Phone: Start: 07-15-2024 Non-patient / Non-visit MD Alessia Steven Work Phone: [facility] Work Phone: Start: 07-15-2024 MD Shantel painting Work Phone: [facility] Work Phone: Start: 07-14-2024 Non-patient / Non-visit MD Alessia Steven Work Phone: [facility] Work Phone: Start: 07-14-2024 MD Shantel painting Work Phone: [facility] Work Phone: Start: 07-10-2024 End: 07-10-2024 Bamboo flowsheet Lizett Jacinto [employer]ING OFFICER Work Phone: [facility] Start: 07-10-2024 End: 07-10-2024 Bamboo flowsheet Lizett Jacinto [employer] D[employer]ING OFFICER [facility] [address] Start: 07-10-2024 End: 07-10-2024 Office outpatient visit 25 minutes Lizett Jacinto [employer] OFFICER Work Phone: [facility] Comment on above: Essential tremor (Pr imary Dx); Diabetic polyneuropathy associated with type 2 diabetes mellitus (CMS/HCC); Balance disorder; Sensory ataxia; Debility; Weakness; Paresthesias Start: 07-10-2024 End: 07-10-2024 ambulatory LIZETT JACINTO Not Available Start: 07-07-2024 End: 07-07-2024 ambulatory MD Shantel Steven Work Phone: [facility] Work Phone: Start: 07-07-2024 End: 07-07-2024 Patient encounter procedure MD Shantel Steven Work Phone: [facility] Work Phone: Start: 07-07-2024 End: 07-07-2024 MD Shantel Steven Work Phone: [facility] Work Phone: Start: 06-25-2024 ambulatory MD Shantel gray Work Phone: [facility] Work Phone: Start: 06-25-2024 Non-patient / Non-visit MD Alessia Steven Work Phone: [facility] Work Phone: Start: 06-25-2024 MD Shantel painting Work Phone: [facility] Work Phone: Start: 06-24-2024 Non-patient / Non-visit MD Alessia Steven Work Phone: [facility] Work Phone: Start: 06-24-2024 MD Shantel painting Work Phone: [facility] Work Phone: Start: 06-16-2024 End: 06-16-2024 ambulatory MD Shantel Steven Work Phone: [facility] Work Phone: Start: 06-16-2024 End: 06-16-2024 Patient encounter procedure MD Shantel Steven Work Phone: [facility] Work Phone: Start: 06-16-2024 End: 06-16-2024 MD Shantel Steven Work Phone: [facility] Work Phone: Start: 06-10-2024 Non-patient / Non-visit MD Alessia Steven Work Phone: [facility] Work Phone: Start: 06-10-2024 MD Shantel painting Work Phone: [facility] Work Phone: Start: 06-09-2024 Non-patient / Non-visit MD Alessia Steven Work Phone: [facility] Work Phone: Start: 06-09-2024 MD Shantel painting Work Phone: [facility] Work Phone: Start: 06-05-2024 End: 06-05-2024 ambulatory MD Shantel Steven Work Phone: [facility] Work Phone: Start: 06-05-2024 End: 06-05-2024 Patient encounter procedure MD Shantel Steven Work Phone: [facility] Ne[facility] [place] Work Phone: Start: 06-05-2024 End: 06-05-2024 MD Shantel Steven Work Phone: [facility] Neph[facility] [place] Work Phone: Start: 06-01-2024 Non-patient / Non-visit MD Alessia Steven Work Phone: [facility] Work Phone: Start: 06-01-2024 MD Shantel painting Work Phone: [facility] Work Phone: Start: 05-26-2024 Non-patient / Non-visit MD Alessia Steven Work Phone: [facility] Work Phone: Start: 05-26-2024 MD Shantel painting Work Phone: [facility] Work Phone: Start: 05-22-2024 End: 05-22-2024 Emergency department patient visit MD Shantel Steven Work Phone: [facility] Work Phone: Start: 05-22-2024 End: 05-22-2024 MD Shantel Steven Work Phone: [facility] Work Phone: Start: 05-20-2024 Non-patient / Non-visit MD Alessia Steven Work Phone: [facility] Work Phone: Start: 05-20-2024 MD Shantel painting Work Phone: [facility] Work Phone: Start: 05-19-2024 End: 05-19-2024 ambulatory MD Shantel Steven Work Phone: [facility] Work Phone: Start: 05-19-2024 End: 05-19-2024 Patient encounter procedure MD Shantel Steven Work Phone: [facility] Work Phone: Start: 05-19-2024 End: 05-19-2024 MD Shantel Steven Work Phone: [facility] Physician [facility] Work Phone: Start: 05-07-2024 End: 05-07-2024 ambulatory MD Shantel Steven Work Phone: [facility] Work Phone: Start: 05-07-2024 End: 05-07-2024 Patient encounter procedure MD Shantel Steven Work Phone: [facility] Work Phone: Start: 05-07-2024 End: 05-07-2024 MD Shantel Steven Work Phone: [facility] Work Phone: Start: 05-06-2024 Non-patient / Non-visit MD Alessia Steven Work Phone: [facility] Work Phone: Start: 05-06-2024 MD Shantel painting Work Phone: [facility] Work Phone: Start: 05-05-2024 Non-patient / Non-visit MD Alessia Steven Work Phone: [facility] Work Phone: Start: 05-05-2024 MD Shantel painting Work Phone: [facility] Work Phone: Start: 05-04-2024 End: 05-06-2024 Non-patient / Non-visit MD Shantel Steven Work Phone: [facility] Work Phone: Start: 05-04-2024 End: 05-06-2024 MD Shantel Steven Work Phone: [facility] Work Phone: Start: 05-04-2024 Non-patient / Non-visit MD Alessia Steven Work Phone: [facility] Work Phone: Start: 05-04-2024 MD Shantel painting Work Phone: [facility] Work Phone: Start: 05-02-2024 Non-patient / Non-visit MD Alessia Steven Work Phone: [facility] Work Phone: Start: 05-02-2024 MD Shantel painting Work Phone: [facility] Work Phone: Start: 05-01-2024 Non-patient / Non-visit MD Alessia Steven Work Phone: [facility] Work Phone: Start: 05-01-2024 MD Shantel painting Work Phone: [facility] Work Phone: Start: 04-30-2024 Non-patient / Non-visit MD Alessia Steven Work Phone: [facility] Work Phone: Start: 04-30-2024 MD Shantel painting Work Phone: [facility] Work Phone: Start: 04-30-2024 Non-patient / Non-visit MD Alessia Steven Work Phone: [facility] Work Phone: Start: 04-30-2024 MD Shantel painting Work Phone: [facility] Work Phone: Start: 04-29-2024 End: 04-29-2024 Patient encounter procedure MD Shantel Steven Work Phone: [facility] Work Phone: Start: 04-29-2024 End: 04-29-2024 MD Shantel Steven Work Phone: [facility] Work Phone: Start: 04-03-2024 End: 04-03-2024 ambulatory MD Shantel Steven Work Phone: [facility] Work Phone: Start: 04-03-2024 End: 04-03-2024 Patient encounter procedure MD Shantel Steven Work Phone: [facility] Work Phone: Start: 04-03-2024 End: 04-03-2024 MD Shantel Steven Work Phone: [facility] Work Phone: Start: 04-01-2024 Non-patient / Non-visit MD Alessia Steven Work Phone: [facility] Work Phone: Start: 04-01-2024 MD Shantel painting Work Phone: [facility] Work Phone: Start: 03-31-2024 Non-patient / Non-visit MD Alessia Steven Work Phone: [facility] Work Phone: Start: 03-31-2024 MD Shantel painting Work Phone: [facility] Physician [facility] Work Phone: Start: 03-28-2024 Non-patient / Non-visit MD Alessia Steven Work Phone: [facility] Work Phone: Start: 03-28-2024 MD Shantel painting Work Phone: [facility] Work Phone: Start: 03-27-2024 Non-patient / Non-visit MD Alessia Steven Work Phone: [facility] Work Phone: Start: 03-27-2024 MD Shantel painting Work Phone: [facility] Work Phone: Start: 03-26-2024 Non-patient / Non-visit MD Alessia Steven Work Phone: [facility] Work Phone: Start: 03-26-2024 MD Shantel painting Work Phone: [facility] Work Phone: Start: 03-25-2024 End: 03-25-2024 Patient encounter procedure MD Shantel Steven Work Phone: [facility] Physician [facility] Work Phone: Start: 03-25-2024 End: 03-25-2024 MD Shantel Steven Work Phone: [facility] Physician [facility] Work Phone: Start: 03-13-2024 End: 03-13-2024 ambulatory MD Shantel Steven Work Phone: [facility] Work Phone: Start: 03-13-2024 End: 03-13-2024 Patient encounter procedure MD Shantel Steven Work Phone: [facility] [address] Work Phone: Start: 02-19-2024 ambulatory FRANCHESCA PERAZA Facility :[facility] Start: 02-15-2024 End: 02-15-2024 ambulatory [facility] Work Phone: Start: 02-15-2024 End: 02-15-2024 Patient encounter procedure [facility] Physician [facility] Work Phone: Start: 01-29-2024 Non-patient / Non-visit [facility] Physician [facility] Work Phone: Start: 01-24-2024 Non-patient / Non-visit [facility] Physician [facility] Work Phone: Start: 01-22-2024 Non-patient / Non-visit [facility] Physician [facility] Work Phone: Start: 01-18-2024 End: 01-18-2024 Patient encounter procedure [facility] Work Phone: Start: 01-15-2024 Non-patient / Non-visit [facility] Physician [facility] Work Phone: Start: 01-04-2024 Non-patient / Non-visit [facility] Physician [facility] Work Phone: Start: 12-18-2023 End: 12-18-2023 ambulatory Shantel Steven Other [employer] Other Start: 12-18-2023 Telephone encounter Shanetl Steven [facility] Start: 11-19-2023 End: 11-19-2023 ambulatory Shantel Steven Other [employer] Other Start: 11-19-2023 Telephone encounter Shantel Steven [facility] Start: 10-23-2023 End: 10-23-2023 ambulatory Jaleesa Vanessa Other [employer] Other Start: 10-23-2023 Office outpatient ne w 30 minutes Jaleesa [facility] [place] Start: 10-22-2023 End: 10-22-2023 ambulatory Shantel Tenisha Other [employer] Other Start: 10-22-2023 Telephone encounter Shantel Tenisha [facility] Start: 10-18-2023 End: 10-18-2023 ambulatory Shantel Tenisha Other [employer] Other Start: 10-18-2023 Office outpatient vi sit 15 minutes Shantel Steven [facility] Start: 09-07-2023 End: 09-07-2023 ambulatory Shantel Tenisha Other [employer] Other Start: 09-07-2023 Telephone encounter Shantel Tenisha [facility] Start: 09-04-2023 End: 09-04-2023 ambulatory Shantel Tenisha Other [employer] Other Start: 09-04-2023 Office outpatient vi sit 25 minutes Shantel Steven [facility] Start: 08-23-2023 End: 08-23-2023 ambulatory Shantel Tenisha Other [employer] Other Start: 08-23-2023 Telephone encounter Shantel Tenisha [facility] Start: 07-23-2023 End: 07-23-2023 ambulatory Shantel Tenisha Other [employer] Other Start: 07-23-2023 Telephone encounter Shantel Tenisha [facility] Start: 07-17-2023 End: 07-17-2023 ambulatory Shantel Tenisha Other [employer] Other Start: 07-17-2023 Office outpatient vi sit 25 minutes Shantel Steven [facility] Start: 05-30-2023 End: 05-30-2023 ambulatory Shantel Steven Other [employer] Other Start: 05-30-2023 Telephone encounter Shantel Steven [facility] Start: 05-22-2023 End: 05-22-2023 ambulatory Shantel Steven Other [employer] Other Start: 05-22-2023 Telephone encounter Shantel Steven [facility] Start: 05-16-2023 End: 05-16-2023 ambulatory Shantel Steven Other [employer] Other Start: 05-16-2023 Telephone encounter Shantel Steven [facility] Start: 05-07-2023 End: 05-07-2023 ambulatory Shantel Steven Other [employer] Other Start: 05-07-2023 Telephone encounter Shantel Steven [facility] Start: 04-30-2023 End: 04-30-2023 ambulatory Shantel Steven Other [employer] Other Start: 04-30-2023 Office outpatient vi sit 25 minutes Shantel Steven [facility] Start: 04-25-2023 End: 04-25-2023 ambulatory Shantel Steven Other [employer] Other Start: 04-25-2023 Telephone encounter Shantel Steven [facility] Start: 04-12-2023 End: 04-12-2023 ambulatory Shantel Steven Other [employer] Other Start: 04-12-2023 Telephone encounter Shantel Steven [facility] Start: 03-09-2023 End: 03-09-2023 ambulatory Shantel Steven Other [employer] Other Start: 03-09-2023 Office outpatient vi sit 15 minutes Shantel Steven [facility] Start: 03-07-2023 End: 03-07-2023 ambulatory Shantel Steven Other [employer] Other Start: 03-07-2023 Telephone encounter Shantel Steven [facility] Start: 03-06-2023 End: 03-06-[address] SHANTEL STEVEN Facility:[facility] Start: 03-05-2023 End: 03-05-2023 ambulatory Shantel Steven Other [employer] Other Start: 03-05-2023 Telephone encounter Shantel Steven [facility] Start: 02-26-2023 End: 02-26-2023 ambulatory Shantel Steven Other [employer] Other Start: 02-26-2023 Telephone encounter Shantel Steven [facility] Start: 02-24-2023 End: 02-24-[address] SHANTEL STEVEN Facility:[facility] Start: 02-23-2023 End: 02-23-2023 ambulatory Shantel Steven Other [employer] Other Start: 02-23-2023 Telephone encounter Shantel Steven [facility] Start: 02-20-2023 End: 02-20-2023 ambulatory Shantel Steven Other [employer] Other Start: 02-20-2023 Transitional care luz cab[facility] 14 day discharge Shantel Steven [facility] Start: 02-16-2023 End: 02-16-2023 ambulatory Shantel Steven Other [employer] Other Start: 02-16-2023 Telephone encounter Shantel Steven [facility] Start: 02-13-2023 End: 02-14-[address] SHANTEL STEVEN Facility:[facility] Start: 02-02-2023 End: 02-02-2023 ambulatory Shantel Steven Other [employer] Other Start: 02-02-2023 Telephone encounter Shantel Steven [facility] Start: 01-16-2023 End: 01-17-[address] DOCTOR CARMONA Facility:[facility] Start: 01-05-2023 End: 01-05-2023 ambulatory BIN ROJAS Facility:[facility] Start: 01-01-2023 End: 01-02-2023 ambulatory ANALISA BRYANT Facility:[facility] Start: 11-29-2022 End: 11-29-2022 ambulatory Shantel Steven Other [employer] Other Start: 11-29-2022 Telephone encounter Shantel Steven [facility] Start: 11-27-2022 End: 11-27-2022 ambulatory Shantel Steven Other [employer] Other Start: 11-27-2022 Telephone encounter Shantel Steven [facility] Start: 11-24-2022 End: 11-24-2022 ambulatory Shantel Steven Other [employer] Other Start: 11-24-2022 Telephone encounter Shantel Steven [facility] Start: 11-06-2022 ambulatory YAMEL PANDYA Facility :[facility] Start: 09-15-2022 End: 09-16-[address] SHANTEL STEVEN Facility:[facility] Start: 08-04-2022 End: 08-04-2022 Patient encounter procedure Bin SORENSON General Surgery Nill/Said Gunter Start: 05-02-2022 End: 05-02-[address] SHANTEL STEVEN Facility:[facility] Start: 08-25-2021 Office outpatient ne w 45 minutes Akbar Cui II [facility] Start: 08-09-2017 End: 08-12-2017 [...] Date Care Activity Detail Author Start: 06-08-2025 [facility] Start: 06-02-2025 [facility] Start: 06-02-2025 Urine culture [facility] Start: 03-24-2025 Patient referral [facility] Work Phone: Start: 12-10-2024 Patient referral [facility] Work Phone: Start: 10-20-2024 [facility] Start: 10-16-2024 Consultation [facility] Start: 10-16-2024 Hospital admission [facility] Start: 10-16-2024 Referral to foot drill operator [facility] Start: 10-16-2024 Drainage of Bladder with Drainage Device, Via Natural or Artificial Opening Drainage of Bladder with Drainage Device, Via Natural or Artificial Opening [facility] Start: 10-16-2024 Performance of Cardi ac Pacing, Continuous Performance of Cardiac Pacing, Continuous [facility] Start: 10-01-2024 End: 10-01-2024 Patient encounter procedure [facility] Comment on above: Arrived Start: 09-30-2024 End: 09-30-2024 Patient encounter procedure 09/30/2024 1:00 PM EST Office Visit [facility] [address] [place] [phone] Wanda Patel DO [address] [place] [address] [facility] [address] [address] Start: 09-04-2024 End: 09-04-2024 Patient encounter procedure 09/04/2024 1:20 PM EDT Office Visit [facility] [address] [place] [phone] Lizett JacintoSHAUN [address] [place], [place] [facility] [place] [address] Start: 07-22-2024 End: 07-22-2024 Patient encounter procedure 07/22/2024 1:10 PM EDT Office Visit [facility] [address] [place] [id number] Christel Chacon MD [address] [place] [address] Arrived [facility] Comment on above: Arrived Start: 07-17-2024 Bacteria identified in Urine by Culture [facility] Start: 07-17-2024 [facility] Start: 07-15-2024 End: 07-15-2024 Patient encounter procedure 07/15/2024 1:10 PM EDT Office Visit [facility] [address] [facility] [address] [place] [id number] Christel Chacon MD [address] [facility] [address] [place] [address] [facility] Start: 2024 Influenza vaccination Influenza Vacc ine (#1) [facility] Start: 07-10-2024 End: 07-10-2024 Patient encounter procedure 07/10/2024 1:40 PM EDT Office Visit [facility] [address] [place] [phone] Lizett Jacinto, SHAUN [address] [place] [address] Arrived [facility] Comment on above: Arrived Start: 06-25-2024 Patient referral [facility] Work Phone: Start: 06-16-2024 Patient referral [facility] Work Phone: Start: 05-07-2024 Patient referral [facility] Work Phone: Start: 05-04-2024 Blood Culture 1 Blood Culture 1 [facility] Start: 02-15-2024 Patient referral [facility] Work Phone: Comprehensive metabo lic 1999 panel - Serum or Plasma [facility] Comprehensive metabo lic 1999 panel - Serum or Plasma [facility] CT Abdomen and Pelvi s WO contrast [facility] Microalbumin [Mass/volume] in Urine [facility] Patient Education [facility] Work Phone: Patient referral [facility] Work Phone: Renal function 1999 panel - Serum or Plasma [facility] Renal function 1999 panel - Serum or Plasma [facility] Renal function 1999 panel - Serum or Plasma [facility] US Ax[facility] Immunizations Immunization Date Immunization Notes Care Provider Fa cility 01-18-2024 Pneumococcal Conjugate Vaccine, 20 valent [facility] 09-04-2023 influenza, high dose seasonal, preservative-free Shantel Steven Other [facility] [employer] Other 09-04-2023 influenza virus vaccine, unspecified formulation [facility] 02-04-2021 COVID-19 mRNA, Comirnaty (Pfizer) [facility] 01-21-2021 COVID-19 mRNA, Comirnaty (Pfizer) [facility] 10-09-2018 influenza virus vaccine, split virus (incl. purified surface antigen) Shantel Steven Other [facility] [employer] Other 10-09-2018 influenza virus vaccine, unspecified formulation [facility] [facility] NEGATED: Highlighted row has not occurred!10-17-2024 influenza, high dose seasonal, preservative-free Jorge Luis Angle DO Work Phone: [facility] NEGATED: Highlighted row has not occurred!08-21-2019 influenza virus vaccine, split virus (incl. purified surface antigen) Shantel Steven Other [employer] Other Payers Date Payer Category Payer Medicare [id number] 2024 Self-pay [id number] 2023 Medicare HUMANA MEDICARE ADVANTAGE HUMANA MEDICARE [id number] 2023-Present [address] [address] [place] [address] [id number] 2023 Medicare (Managed Care) [facility] EDICARE ADV[facility]AGE [id number] 1959 Medicare [id number] 1959 Self-pay [id number] 1945 Unknown [id number] 2.16.840.1.408063.3.579. 2.593 1946 Unknown [id number] 2.16.840.1.534722.3.579. 2.593 1946 Unknown [id number] 2.16.840.1.702928.3.579. 2.593 1946 Unknown [id number] 2.16.840.1.586415.3.579. 2.593 1946 Unknown [id number] 2.16.840.1.908778.3.579. 2.593 1946 Unknown [id number] 2.16.840.1.294926.3.579. 2.593 1946 Unknown [id number] 2.16.840.1.067967.3.579. 2.593 1946 Unknown [id number] 2.16.840.1.608171.3.579. 2.593 1946 Unknown [id number] 2.16.840.1.309915.3.579. 2.593 1946 Unknown [id number] 2.16.840.1.821095.3.579. 2.1259 1946 Unknown [id number] 2.16.840.1.742191.3.579. 2.1259 1946 Unknown [id number] 2.16.840.1.375252.3.579. 2.1259 1946 Unknown [id number] 2.16.840.1.608575.3.579. 2.727 1946 Unknown [id number] 2.16.840.1.178590.3.579. 2.727 1946 Unknown [id number] 2.16.840.1.762847.3.579. 2.727 1946 Unknown [id number] 2.16.840.1.151129.3.579. 2.727 1946 Unknown [id number] 2.16.840.1.475468.3.579. 2.727 Unknown Unknown [id number] 2.16.840.1.641184.3.579. 2.531 Unknown [id number] 2.16.840.1.236095.3.579. 2.531 Unknown [id number] 2.16.840.1.174558.3.579. 2.531 Unknown [id number] 2.16.840.1.172107.3.579. 2.531 Unknown [id number] 2.16.840.1.499910.3.579. 2.531 Unknown [id number] 2.16.840.1.574253.3.579. 2.531 Unknown [id number] 2.16.840.1.426233.3.579. 2.531 Social History Date Type Detail Facility Start: 07-22-2024 End: 10-01-2024 Sex Assigned At [facility] [employer] Other Start: 08-04-2022 End: 10-25-2024 Tobacco smoking status Ex-smoker (finding) General [facility] Tobacco smoking status Never Gener al Surgery [facility] Start: 1945 Sex Assigned At Female F [facility] History of tobacco use Current smoker [facility] History of tobacco use Cigarette Smoker [facility] Start: 07-03-2024 Tobacco use and exposure Smokeless tobacco non-user [facility] Start: 07-22-2024 End: 10-01-2024 Alcoholic beverage intake Lifetime non-drinker (finding) [facility] Start: 07-22-2024 End: 10-01-2024 History of Social function [facility] Start: 07-08-2024 Alcohol Comment caffeine: 1-2 cups per day [facility] Start: 1945 Sex assigned at Not on file [facility] Start: 12-26-2024 End: 04-21-2025 Sex Female (finding) [facility] Start: 03-12-2025 End: 06-10-2025 Tobacco smoking status NHIS Never smoked tobacco (finding) [facility] Medical Equipment Procedure Code Equipment Code Equipment Origin al Text Equipment Identifier Dates Blood Sugar Diagnostic (True Metrix Glucose Test Strip) strip Start: 03-31-2024 Pen Needle, Diab etic (Comfort Ez Pen [place]) 33 gauge x 5/32 needle Start: 03-25-2024 Blood Sugar Diagnostic (True Metrix Glucose Test Strip) strip Start: 03-31-2024 End: 03-31-2024 Blood Sugar Diagnostic (True Metrix Glucose Test Strip) strip Start: 03-31-2024 Pen Needle, Diab etic (Comfort Ez Pen [place]) 33 gauge x 5/32 needle Start: 03-25-2024 Blood Sugar Diagnostic (True Metrix Glucose Test Strip) strip Start: 03-31-2024 End: 03-31-2024 Blood Sugar Diagnostic (True Metrix Glucose Test Strip) strip Start: 03-31-2024 Pen Needle, Diab etic (Comfort Ez Pen [place]) 33 gauge x 5/32 needle Start: 03-25-2024 Blood Sugar Diagnostic (True Metrix Glucose Test Strip) strip Start: 03-31-2024 End: 03-31-2024 Blood Sugar Diagnostic (True Metrix Glucose Test Strip) strip Start: 03-31-2024 Pen Needle, Diab etic (Comfort Ez Pen [place]) 33 gauge x 5/32 needle Start: 03-25-2024 Blood Sugar Diagnostic (True Metrix Glucose Test Strip) strip Start: 03-31-2024 End: 03-31-2024 Blood Sugar Diagnostic (True Metrix Glucose Test Strip) strip Start: 03-31-2024 Pen Needle, Diab etic (Comfort Ez Pen [place]) 33 gauge x 5/32 needle Start: 03-25-2024 Blood Sugar Diagnostic (True Metrix Glucose Test Strip) strip Start: 03-31-2024 End: 03-31-2024 Blood Sugar Diagnostic (True Metrix Glucose Test Strip) strip Start: 03-31-2024 Pen Needle, Diab etic (Comfort Ez Pen [place]) 33 gauge x 5/32 needle Start: 03-25-2024 Blood Sugar Diagnostic (True Metrix Glucose Test Strip) strip Start: 03-31-2024 End: 03-31-2024 Blood Sugar Diagnostic (True Metrix Glucose Test Strip) strip Start: 03-31-2024 Pen Needle, Diab etic (Comfort Ez Pen [place]) 33 gauge x 5/32 needle Start: 03-25-2024 Blood Sugar Diagnostic (True Metrix Glucose Test Strip) strip Start: 03-31-2024 End: 03-31-2024 Blood Sugar Diagnostic (True Metrix Glucose Test Strip) strip Start: 03-31-2024 Pen Needle, Diab etic (Comfort Ez Pen [place]) 33 gauge x 5/32 needle Start: 03-25-2024 Blood Sugar Diagnostic (True Metrix Glucose Test Strip) strip Start: 03-31-2024 End: 03-31-2024 Blood Sugar Diagnostic (True Metrix Glucose Test Strip) strip Start: 03-31-2024 Pen Needle, Diab etic (Comfort Ez Pen [place]) 33 gauge x 5/32 needle Start: 03-25-2024 Blood Sugar Diagnostic (True Metrix Glucose Test Strip) strip Start: 03-31-2024 End: 03-31-2024 Pen Needle, Diab etic (Comfort Ez Pen [place]) 33 gauge x 5/32 needle Start: 03-25-2024 Blood Sugar Diagnostic (True Metrix Glucose Test Strip) strip Start: 03-31-2024 End: 10-16-2024 Blood Sugar Diagnostic (True Metrix Glucose Test Strip) strip Start: 03-31-2024 End: 03-31-2024 Pen Needle, Diab etic (Comfort Ez Pen [place]) 33 gauge x 5/32 needle Start: 03-25-2024 Blood Sugar Diagnostic (True Metrix Glucose Test Strip) strip Start: 03-31-2024 End: 10-16-2024 Blood Sugar Diagnostic (True Metrix Glucose Test Strip) strip Start: 03-31-2024 End: 03-31-2024 Pen Needle, Diab etic (Comfort Ez Pen [place]) 33 gauge x 5/32 needle Start: 03-25-2024 Blood Sugar Diagnostic (True Metrix Glucose Test Strip) strip Start: 03-31-2024 End: 10-16-2024 Blood Sugar Diagnostic (True Metrix Glucose Test Strip) strip Start: 03-31-2024 End: 03-31-2024 Pen Needle, Diab etic (Comfort Ez Pen [place]) 33 gauge x 5/32 needle Start: 03-25-2024 Blood Sugar Diagnostic (True Metrix Glucose Test Strip) strip Start: 03-31-2024 End: 10-16-2024 Blood Sugar Diagnostic (True Metrix Glucose Test Strip) strip Start: 03-31-2024 End: 03-31-2024 Pen Needle, Diab etic (Comfort Ez Pen [place]) 33 gauge x 5/32 needle Start: 03-25-2024 Blood Sugar Diagnostic (True Metrix Glucose Test Strip) strip Start: 03-31-2024 End: 10-16-2024 Blood Sugar Diagnostic (True Metrix Glucose Test Strip) strip Start: 03-31-2024 End: 03-31-2024 Pen Needle, Diab etic (Comfort Ez Pen [place]) 33 gauge x 5/32 needle Start: 03-25-2024 Blood Sugar Diagnostic (True Metrix Glucose Test Strip) strip Start: 03-31-2024 End: 10-16-2024 Blood Sugar Diagnostic (True Metrix Glucose Test Strip) strip Start: 03-31-2024 End: 03-31-2024 Pen Needle, Diab etic (Comfort Ez Pen [place]) 33 gauge x 5/32 needle Start: 03-25-2024 Blood Sugar Diagnostic (True Metrix Glucose Test Strip) strip Start: 03-31-2024 End: 10-16-2024 Blood Sugar Diagnostic (True Metrix Glucose Test Strip) strip Start: 03-31-2024 End: 03-31-2024 Pen Needle, Diab etic (Comfort Ez Pen [place]) 33 gauge x 5/32 needle Start: 03-25-2024 Blood Sugar Diagnostic (True Metrix Glucose Test Strip) strip Start: 03-31-2024 End: 10-16-2024 Blood Sugar Diagnostic (True Metrix Glucose Test Strip) strip Start: 03-31-2024 End: 03-31-2024 Goals Date Patient Goal Desired Activity /State Functional Status Date Assessment Result Facility 11-04-2024 Functional Status N/A [facility] 10-20-2024 Functional status Patient at Baseline [facility] Work Phone: 08-04-2022 Functional Status N/A [facility] Mental Status Date Assessment Result Facility 10-20-2024 Cognitive function Cognitive Sta tus Patient at Baseline [facility] Work Phone: Clinical Notes 08-25-2021 to 07-15-2025 [...] she is ready to proceed. Yamel Pandya, TIRE FABRICATOR-NURSE GENERAL D[facility] Cardiovascular [facility] 04-22-2025 Note [place] [facility] Subjective Joe Call is [...] Hordeolum externum (stye) Immunization due Lactose intolerance bitumastic applier (current) use of insulin (CMS/HCC) Lumbar degenerative [...] December 2022 she was admitted to the [facility] with decompensated diastolic heart failure, she was treated with diuretic therapy. In February 2023 she was admitted to [facility] with dehydration secondary to acute gastroenteritis. She also had acute kidney injury in that setting. She has history of breast cancer more than 25 years ago s/p mastectomy, chemo and radiation therapy. She has lymphedema in the left arm. In the past she saw a production editor for bleeding behind the eye . she [...] April 2024 she was admitted to the [facility] with increasing weakness and altered mental status. She also had acute renal insufficiency. She had UTI secondary to E. coli. She previously was admitted to the [facility] several times due to heart failure. She was readmitted in January 2025 to the [facility] with shortness of breath and treated [...] Positive for shortness (more content not included)... [facility] 04-21-2025 Evaluation note Diagnosis Onset Date [...] failure) acute July 20, 2 025 1:56pm [facility] Work Phone: 1(121) 126-182805-13-2025 Evaluation note* Diagnosis Onset Date Resolution Status [...] use of acute June 04, 2025 9:49am [facility] Work Phone: 1(438) 822-629605-13-2025 Hospital Discharge instructionsAmbulatory Orders* Referral to Diabetes Management Time Frame: 03/24/25, Location: None Selected [facility] Work Phone: 1(689) 925-927404-29-2025 Evaluation note* Diagnosis Onset Date Resolution Status [...] bowel syndrome) acute April 21, 2025 2:10pm [facility] Work Phone: 1([phone]) 566-361104-29-2025 Evaluation note* Diagnosis Onset Date Resolution Status [...] x disease) acute May 21, 2025 10:52am [facility] Work Phone: 1(779) 284-568204-29-2025 Evaluation note* Diagnosis Onset Date Resolution Status [...] 2025 10:52am Dysuria acute June 02 12:10pm [facility] Work Phone: 1([phone]) 202-431204-21-2025 NoteCardiovascular Medicine [facility] SUBJECTIVE Patient is here today for [...] intake. 01/28/2025 She presented yesterday to the [facility] emergency room with worsening shortness of breath [...] better. She is going to see a foot drill operator next week. Also she reports symptoms of [...] postchemotherapy and radiation She was recently in [facility] 10/16/2024, she presented with fatigue, lightheadedness [...] her lisinopril due to (more content not included)...[facility] Evaluation note* Diagnosis Onset Date Resolution [...] tract infection) acute March 24, 2025 1:51pm [facility] Work Phone: 1(160) 581-836803-31-2025 Evaluation note* Diagnosis Onset Date Resolution Status [...] bowel syndrome) acute April 21, 2025 2:10pm [facility] Work Phone: 1(309) 889-540603-19-2025 NoteCardiovascular Medicine [facility] SUBJECTIVE Patient is here today for follow-up after [facility] admission HPI 01/28/2025 She presented yesterday to the [facility] emergency room with worsening shortness of breath [...] better. She is going to see a foot drill operator next week. Also she reports symptoms of [...] postchemotherapy and radiation She was recently in [facility] 10/16/2024, she presented with fatigue, lightheadedness [...] confusion regarding her d (more content not included)...[facility]02-26-2025 Telephone encounter Note* Telephone Encounter - Christel Chacon MD - 01/07/2025 12:08 PM EST prn [id number] Miscellaneous Notes* Telephone Encounter - Christel Chacon MD - 01/07/2025 12:08 PM EST prn * Telephone Encounter - Jeanne Chacon - 01/07/2025 11:26 AM EST Called pt/spoke with spouse/he said she does not want to schedule with Dr Hurd/if she changes hermind she will call us back. documented in this encounterTexas [facility] [id number] Telephone encounter Note* Telephone Encounter - Jeanne Chacon - 01/07/2025 11:26 AM EST Called pt/spoke with spouse/he said she does not want to schedule with Dr Hurd/if she changes hermind she will call us back. [facility] HospitalJcxfonxwaj06-71-9160 Evaluation note* Diagnosis Onset Date Resolution Status [...] of acute March 24, 2025 1 :51pm [facility] Work Phone: 1([phone]) 318-982802-25-2025 Telephone encounter Note* Telephone Encounter - Jeanne Chacon - 01/06/2025 11:21 AM EST Left a message for pt to call Dr Chacon's office back to see if pt is planning on scheduling with Dr Hurd for sleep study. [facility] [id number] Miscellaneous Notes* Telephone Encounter - Jeanne Chacon - 01/06/2025 11:21 AM EST Left a message for pt to call Dr Chacon's office back to see if pt is planning on scheduling with Dr Hurd for sleep study. documented in this encounterTexas [facility] HospitalSqtcvippcn16-09-0877 Evaluation note* Diagnosis Onset Date Resolution Status [...] x disease) acute March 10, 2025 11:03am [facility] Work Phone: 1(780) 154-624302-14-2025 Evaluation note* Diagnosis Onset Date Resolution Status [...] bowel syndrome) acute March 10, 2025 11:03am [facility] Work Phone: 1([phone]) 540-644601-28-2025 Evaluation note* Diagnosis Onset Date Resolution Status [...] kidney disease acute February 19, 2025 8:32am [facility] Work Phone: 1([phone]) 252-989801-21-2025 NoteCardiovascular Medicine [facility] SUBJECTIVE Patient is here today for [...] postchemotherapy and radiation She was recently in [facility] 10/16/2024, she presented with fatigue, lightheadedness [...] few months. Patient here for follow up [facility]. Her diuretic was switched again back [...] Oz of fluid a day per the foot drill operator. Her most recent discharge on 07/25/24 she [...] has noticed occasional horsen (more content not included)...[facility]12[facility] Evaluation note* Diagnosis Onset Date Resolution [...] 2025 10:00am Diarrhea acute February 09 1:58pm [facility] Work Phone: 1(127) 975-961712-24-2024 Hospital Discharge instructions Patient Education 11/04/2024 11:01:25 [...] Follow these instructions at home: Medicines Take elee-kry-wsnnlse and prescription medicines only as told by [...] provider. Document Revised: 07/20/2021 Document Reviewed: 07/20/2021 [email or web address] Patient Education 2023 [employer]. Follow Up Care 10/20/2024 13:37:01 With:SYDNIE HASSAN Address: [address] [facility] [place] [address] Business (1) When:6 weeks [facility] Afsaneh 12-24-2024 NotePatient Education Obstetrics and Gynecology [...] these instructions at home: Medicines ??? Take ndjp-gnb-offbiql and prescription medicines only as told by [...] provider. Document Revised: 07/20/2021 Document Reviewed: 07/20/2021 [email or web address] Patient Education ? 2023 [employer] 11-03-2024 Evaluation note* Diagnosis Onset Date Resolution Status Admit Date A-fib acute November 03, 2024 11:24am Bradycardia acute October 11:24am CKD (chronic kidney disease) , stage IV acute November 03 11:24am Lumbar spondylosis acute [facility] er 2023 11:24am Type 2 diabetes [...] of acute January 06, 2 025 3:21pm [facility] Work Phone: 1(444) 208-912012-23-2024 Evaluation note* Diagnosis Onset Date Resolution Status Admit Date A-fib acute November 03, 2024 11:24am Bradycardia acute October 11:24am CKD (chronic kidney disease) , stage IV acute November 03 2 024 11:24am Lumbar spondylosis acute [facility] 2023 11:24am Type 2 diabetes mellitus wit [...] use of acute January 14, 2025 10:00am [facility] Work Phone: [phone]) 205-403512-20-2024 NoteCardiovascular Medicine [facility] SUBJECTIVE Patient is here today for hospital follow-up. She was in [facility] with bradycardia. HPI 10/31/2024 Joe Call is a 79 y.o. female here for follow-up. Patient has history of HFpEF, paroxysmal atrial fibrillation, hypertension, diabetes mellitus type 2, chronic kidney disease, remote history of breast cancer status postchemotherapy and radiation She was recently in [facility] 10/16/2024, she presented with fatigue, lightheadedness [...] few months. Patient here for follow up [facility]. Her diuretic was switched again back [...] Oz of fluid a day per the foot drill operator. Her most recent discharge on 07/25/24 she [...] pain Depressive disorder Diabe (more content not included)...[facility] 10-16-2024 Evaluation note* Diagnosis Onset Date [...] disease acu te December 09, 2024 1:24pm [facility] Work Phone: 1([phone] NoteCardiovascular Medicine [facility] SUBJECTIVE Chief Complaint Patient presents with [...] few months. Patient here for follow up [facility]. Her diuretic was switched again back [...] Oz of fluid a day per the foot drill operator. Her most recent discharge on 07/25/24 she [...] deficiency Lymphedema of left arm Morbid obesity ([facility]) Obstructive sleep apnea syndrome Paroxysmal supraventricular tachycardia ([facility]) Psoriasis Type 2 diabetes mellitus without complication ([facility]) Mixed hyperlipidemia Diastolic dysfunction Carotid bruit Chronic diarrhea Chronic low back pain Depressive disorder Diabetes mellitus ([facility]/HCC) Diabetic neuropathy ([facility]) Exocrine pancreatic insufficiency Gastroesophageal reflux disease Hypertension Hypomagnesemia Hypothyroidism Stage 3 chronic kidney disease ([facility]) Hyperlipidemia Atrial fibrillation ([facility]) Paroxysmal atrial fibrillation ([facility]) Abdominal swelling, generalized Acute on chronic diastolic CHF (congestive heart failure) ([facility]) Anxiety Back pain with history of spinal surgery Cervical disc disease Chalazion of right eye Dyspnea Hordeolum externum (stye) Immunization due Lactose intolerance shelter (current) use of insulin ([facility]) Lumbar degenerative disc disease Lumbar spondylosis Lymph edema Macular degeneration Memory changes Osteoarthritis Secondary hyperparathyroidism ([facility]) Stress incontinence of urine Thrush of mouth and esophagus ([facility]) Urinary incontinence UTI (urinary tract infection) Yeast cystitis CARMELO (acute kidney injury) ([facility]) Tremor Acquired hammer toe of right foot Ataxia Balance disorder CHF (congestive heart failure) ([facility]) Dehydration Diabetic foot ([facility]) Diabetic peripheral neuropathy associated with type 2 diabetes mellitus ([facility]) Disability of walking Essential tremor LPRD (laryngopharyngeal reflux disease) Mass of right axilla Paresthesia Throat tightness Type 2 diabetes mellitus with hyperglycemia, with long-term current use of insulin ([facility]) Venous insufficiency (chronic) (peripheral) Debility Past Medical History: Diagnosis Date Atrial fibrillation ([facility]) Cancer ([facility]) Carotid artery stenosis Coronary (more content not included)...[facility] 10-08-2024 NotePatient here for 1 mo [...] tremors. All other systems reviewed and are negative.[facility] 10-01-2024 History of Present illness Narrative* [...] on chronic diastolic CHF (congestive heart failure) ([facility]) 05/20/2024 CARMELO (acute kidney injury) ([facility]) 05/20/2024 Anxiety 05/20/2024 Aortic valve disorder 08/20/2012 Back pain with history of spinal surgery 05/20/2024 Benign essential hypertension ([facility]) 04/02/2012 Carotid artery stenosis 07/20/2022 Carotid bruit 01/16/2023 Cervical disc disease 05/20/2024 Chalazion of right eye 05/20/2024 Chronic diarrhea 01/16/2023 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 Chronic low back pain 01/16/2023 Coronary atherosclerosis ([facility]) 03/20/2012 Depressive disorder ([facility]) 01/16/2023 Diabetes mellitus ([facility]) 07/03/2024 Diabetic foot ([facility]) 07/03/2024 Diabetic neuropathy ([facility]) 01/16/2023 Diabetic peripheral neuropathy associated with type 2 diabetes mellitus ([facility]) 07/03/2024 Diastolic dysfunction 09/05/2022 Disability of walking 07/03/2024 Diverticulitis of colon 03/20/2012 Dyspnea 05/20/2024 Exocrine pancreatic insufficiency ([facility]) 01/16/2023 Gastroesophageal reflux disease 01/16/2023 History of malignant neoplasm of breast 03/20/2012 Hordeolum externum (stye) 05/20/2024 Hyperlipidemia ([facility]) 07/03/2024 Hypertension ([facility]) 01/16/2023 Near syncope 07/03/2024 Hypomagnesemia 01/16/2023 Hypothyroidism ([facility]) 01/16/2023 Lumbar degenerative disc disease 05/20/2024 Lumbar spondylosis 05/20/2024 Lymph edema 05/20/2024 Lymphedema of left arm 03/20/2012 Macular degeneration 05/20/2024 Memory changes 05/20/2024 Morbid obesity ([facility]) 07/20/2022 Obstructive sleep apnea syndrome 03/20/2012 Paroxysmal atrial fibrillation ([facility]) 03/20/2012 Paroxysmal supraventricular tachycardia ([facility]) 03/26/2012 Psoriasis ([facility]) 03/20/2012 Secondary hyperparathyroidism ([facility]) 05/20/2024 Stage 3 chronic kidney disease (HCC) ([facility]) 01/16/2023 Hypertensive chronic kidney disease with stage 1 through stage 4 chronic kidney disease, or unspecified chronic kidney disease ([facility]) 07/03/2024 Thrush of mouth and esophagus ([facility]) 05/20/2024 Tremor 06/18/2024 Type 2 diabetes mellitus with hyperglycemia, with long-term current use of insulin ([facility]) 07/03/2024 Venous insufficiency (chronic) (peripheral) 07/03/2024 Essential tremor 07/08/2024 Balance disorder 07/08/2024 Ataxia 07/08/2024 Diabetic peripheral neuropathy ([facility]/HCC) 07/08/2024 Paresthesia 07/08/2024 Sensory ataxia 07/10/2024 Debility 07/10/2024 Weakness 07/10/2024 Paresthesias 07/10/2024 JED (obstructive sleep apnea) 07/22/2024 LPRD (laryngopharyngeal reflux disease) 07/22/2024 Throat tightness 07/22/2024 Resolved Ambulatory Problems Diagnosis Date Noted Acute pain of left shoulder 07/03/2024 Lactose intolerance 05/20/2024 shelter (current) use of insulin ([facility]) 05/20/2024 Pharyngitis 07/03/2024 CKD (chronic kidney disease), stage IV ([facility]) 07/03/2024 Stress incontinence of urine 05/20/2024 Urinary incontinence 05/20/2024 UTI (urinary tract infection) 05/20/2024 Yeast cystitis 05/20/2024 Past Medical History: Diagnosis Date Anemia Breast cancer ([facility]) Coronary heart disease ([facility]) Diverticulosis GERD (gastroesophageal reflux disease) CA (myocardial infarction) ([facility]) Myocardial infarction ([facility]) Type II diabetes mellitus ([facility]) Past Surgical History: Procedure Laterality Date APPENDECTOMY [...] I will call pt. documented in this encounterTexas County Memorial [id number] Telephone encounter Note* Telephone Encounter - Jeannebrodie Chacon - 09/30/2024 11:01 AM EST Pt is scheduled with Dr Chacon 10/01/2024. [facility] [id number] Miscellaneous Notes* Telephone Encounter - Jeannebrodie Chacon - 09/30/2024 11:01 AM EST Pt is scheduled with Dr Chacon 10/01/2024. * Telephone Encounter - Jeanne Chacon - 09/26/2024 8:50 AM EST Tried to call pt to schedule a follow up appt for labs, unable to leave a message. documented in this encounterTexas County Memorial [id number] Telephone encounter Note* Telephone Encounter - Jeannebrodie Chacon - 09/26/2024 8:50 AM EST Tried to call pt to schedule a follow up appt for labs, unable to leave a message. [place] [facility] [id number] NoteCardiovascular Medicine [facility] SUBJECTIVE Chief Complaint Patient presents with [...] few months. Patient here for follow up [facility]. Her diuretic was switched again back [...] Oz of fluid a day per the foot drill operator. Her most recent discharge on 07/25/24 she [...] Psoriasis Type 2 diabetes mellitus without complication ([facility]/HCC) Mixed hyperlipidemia Diastolic dysfunction Carotid bruit Chronic diarrhea Chronic low back pain Depressive disorder Diabetes mellitus (CMS/HCC) Diabetic neuropathy (CMS/HCC) Exocrine pancreatic insufficiency Gastroesophageal reflux disease Hypertension Hypomagnesemia Hypothyroidism Stage 3 chronic kidney disease (CMS/HCC) Hyperlipidemia Atrial fibrillation (CMS/HCC) Paroxysmal atrial fibrillation ([facility]/HCC) Abdominal swelling, generalized Acute on chronic diastolic CHF (congestive heart failure) (CMS/HCC) Anxiety Back pain with history of spinal surgery Cervical disc disease Chalazion of right eye Dyspnea Hordeolum externum (stye) Immunization due Lactose intolerance bitumastic applier (current) use of insulin (CMS/HCC) Lumbar degenerative disc disease Lumbar spondylosis Lymph edema Macular degeneration Memory changes Osteoarthritis Secondary hyperparathyroidism (CMS/HCC) Stress incontinence of urine Thrush of mouth and esophagus (CMS/HCC) Urinary incontinence UTI (urinary tract infection) Yeast cystitis CARMELO (acute kidney injury) ([facility]) Tremor Acquired hammer toe of right foot Ataxia Balance disorder CHF (congestive heart failure) ([facility]/HCC) Dehydration Diabetic foot ([facility]/HCC) Diabetic peripheral neuropathy associated with type 2 diabetes mellitus ([facility]) Disability of walking Essential tremor LPRD (laryngopharyngeal reflux disease) Mass of right axilla Paresthesia Throat tightness Type 2 diabetes mellitus with hyperglycemia, with long-term current use of insulin ([facility]) Venous insufficiency (chronic) (peripheral) Debility Past Medical History: Diagnosis Date Atrial fibrillation ([facility]/HCC) Cancer ([facility]) Carotid artery stenosis Coronary artery disease Diabetes mellitus ([facility]) GERD (gastroesophageal reflux disease) Hypertension Sleep apnea Family History Problem Relation Name Age of Onset Coronary artery disease Other Diabetes Other Polycystic kidney disease Other Social History Tobacco Use Smoking status: Former Types: Ci (more content not included)...[facility] 09-03-2024 NotePatient here for 2 week follow up. Had echo last week and labs drawn this afternoon. Says she's feeling better. Still denies chest pain, palpitations, and bleeding on Xarelto. Review of Systems Cardiovascular: Positive for leg swelling (feet). Respiratory: Positive for shortness of breath. Musculoskeletal: Positive for muscle weakness. Neurological: Positive for tremors. All other systems reviewed and are negative.[facility] 08-20-2024 NotePatient here for follow up [facility]. Her diuretic was switched again back [...] tremors. All other systems reviewed and are negative.[facility] 08-20-2024 NoteCardiovascular Medicine [facility] SUBJECTIVE Chief Complaint Patient presents with [...] few months. Patient here for follow up [facility]. Her diuretic was switched again back [...] Oz of fluid a day per the foot drill operator. Her most recent discharge on 07/25/24 she [...] deficiency Lymphedema of left arm Morbid obesity ([facility]) Obstructive sleep apnea syndrome Paroxysmal supraventricular tachycardia ([facility]) Psoriasis Type 2 diabetes mellitus without complication ([facility]) Mixed hyperlipidemia Diastolic dysfunction Carotid bruit Chronic diarrhea Chronic low back pain Depressive disorder Diabetes mellitus ([facility]) Diabetic neuropathy ([facility]) Exocrine pancreatic insufficiency Gastroesophageal reflux disease Hypertension Hypomagnesemia Hypothyroidism Stage 3 chronic kidney disease ([facility]) Hyperlipidemia Atrial fibrillation ([facility]/HCC) Paroxysmal atrial fibrillation ([facility]) Abdominal swelling, generalized Acute on chronic diastolic CHF (congestive heart failure) ([facility]) Anxiety Back pain with history of spinal surgery Cervical disc disease Chalazion of right eye Dyspnea Hordeolum externum (stye) Immunization due Lactose intolerance shelter (current) use of insulin ([facility]) Lumbar degenerative disc disease Lumbar spondylosis Lymph edema Macular degeneration Memory changes Osteoarthritis Secondary hyperparathyroidism ([facility]) Stress incontinence of urine Thrush of mouth and esophagus ([facility]) Urinary incontinence UTI (urinary tract infection) Yeast cystitis CARMELO (acute kidney injury) ([facility]) Tremor Acquired hammer toe of right foot Ataxia Balance disorder CHF (congestive heart failure) ([facility]) Dehydration Diabetic foot ([facility]/H[facility]) Diabetic peripheral neuropathy associated with type 2 diabetes mellitus ([facility]) Disability of walking Essential tremor LPRD (laryngopharyngeal reflux disease) Mass of right axilla Paresthesia Throat tightness Type 2 diabetes mellitus with hyperglycemia, with long-term current use of insulin ([facility]) Venous insufficiency (chronic) (peripheral) Debility Past Medical [...] All other systems reviewed (more content not included)...[facility] History of Present illness Narrative* Christel [...] on chronic diastolic CHF (congestive heart failure) ([facility]/H[facility]) 05/20/2024 CARMELO (acute kidney injury) ([facility]) 05/20/2024 Anxiety 05/20/2024 Aortic valve disorder 08/20/2012 Back pain with history of spinal surgery 05/20/2024 Benign essential hypertension ([facility]) 04/02/2012 Carotid artery stenosis 07/20/2022 Carotid bruit 01/16/2023 Cervical disc disease 05/20/2024 Chalazion of right eye 05/20/2024 Chronic diarrhea 01/16/2023 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 Chronic low back pain 01/16/2023 Coronary atherosclerosis ([facility]) 03/20/2012 Depressive disorder ([facility]) 01/16/2023 Diabetes mellitus ([facility]) 07/03/2024 Diabetic foot ([facility]) 07/03/2024 Diabetic neuropathy ([facility]) 01/16/2023 Diabetic peripheral neuropathy associated with type 2 diabetes mellitus ([facility]) 07/03/2024 Diastolic dysfunction 09/05/2022 Disability of walking 07/03/2024 Diverticulitis of colon 03/20/2012 Dyspnea 05/20/2024 Exocrine pancreatic insufficiency ([facility]) 01/16/2023 Gastroesophageal reflux disease 01/16/2023 History of malignant neoplasm of breast 03/20/2012 Hordeolum externum (stye) 05/20/2024 Hyperlipidemia ([facility]) 07/03/2024 Hypertension ([facility]) 01/16/2023 Near syncope 07/03/2024 Hypomagnesemia 01/16/2023 Hypothyroidism ([facility]) 01/16/2023 Lumbar degenerative disc disease 05/20/2024 Lumbar spondylosis 05/20/2024 Lymph edema 05/20/2024 Lymphedema of left arm 03/20/2012 Macular degeneration 05/20/2024 Memory changes 05/20/2024 Morbid obesity ([facility]) 07/20/2022 Obstructive sleep apnea syndrome 03/20/2012 Paroxysmal atrial fibrillation ([facility]) 03/20/2012 Paroxysmal supraventricular tachycardia ([facility]) 03/26/2012 Psoriasis ([facility]) 03/20/2012 Secondary hyperparathyroidism ([facility]) 05/20/2024 Stage 3 chronic kidney disease (HCC) ([facility]) 01/16/2023 Hypertensive chronic kidney disease with stage 1 through stage 4 chronic kidney disease, or unspecified chronic kidney disease ([facility]) 07/03/2024 Thrush of mouth and esophagus ([facility]) 05/20/2024 Tremor 06/18/2024 Type 2 diabetes mellitus with hyperglycemia, with long-term current use of insulin ([facility]) 07/03/2024 Venous insufficiency (chronic) (peripheral) 07/03/2024 Essential tremor 07/08/2024 Balance disorder 07/08/2024 Ataxia 07/08/2024 Diabetic peripheral neuropathy ([facility]) 07/08/2024 Paresthesia 07/08/2024 Sensory ataxia 07/10/2024 Debility 07/10/2024 Weakness 07/10/2024 Paresthesias 07/10/2024 Resolved Ambulatory Problems Diagnosis Date Noted Acute pain of left shoulder 07/03/2024 Lactose intolerance 05/20/2024 shelter (current) use of insulin ([facility]) 05/20/2024 Pharyngitis 07/03/2024 CKD (chronic kidney disease), stage IV ([facility]) 07/03/2024 Stress incontinence of urine 05/20/2024 Urinary incontinence 05/20/2024 UTI (urinary tract infection) 05/20/2024 Yeast cystitis 05/20/2024 Past Medical History: Diagnosis Date Anemia Breast cancer ([facility]) Coronary heart disease ([facility]) Diverticulosis GERD (gastroesophageal reflux disease) CA (myocardial infarction) ([facility]) Myocardial infarction ([facility]) Type II diabetes mellitus ([facility]) Past Surgical History: Procedure Laterality Date APPENDECTOMY [...] contribute to throat fullness documented in this encounterTexas County Memorial [id number] History of Present illness Narrative* Lizett Jacinto, [...] HOSP F/U after being seen IP at [facility] for worsening SOB along with lower extremity edema and lower abdominal wall edema after being taken off of Lasix. Was discharged with instructions to f/u with PCP, Cardiologies, [employer]. States that she was dx with CHF [...] GERD (gastroesophageal reflux disease) Lactose intolerance 05/20/2024 shelter (current) use of insulin (CMS/HCC) 05/20/2024 CA (myocardial infarction) ([facility]) Myocardial infarction ([facility]) Pharyngitis 07/03/2024 Type II diabetes mellitus ([facility]) Urinary incontinence 05/20/2024 Yeast cystitis 05/20/2024 Past [...] as we have not seen her in [facility]. She never followed up. Dr. Choe [...] would need to be done through the valve technician. The patient does have benzodiazepines which are [...] modifying techniques such as weighted silverware, utensil interpreter deaf and/or cups with lids on them. . [...] and the medication options Weighted silverware Utensil interpreter deaf to aid with writing and putting on [...] to clinic: 2 months documented in this encounterTexas County Memorial [id number] Hospital Discharge instructionsAmbulatory Orders* Referral to Urology Time Frame: 02/15/24, Location: [facility] Work Phone: [phone]) 388-859301-08-2024 Evaluation note* Encounter Date Diagnosis Assessment Notes Treatment Notes Treatment Clinical Notes Nov, Lumbar degenerative disc disease (ICD-10 - M51.36) [employer] Other 12-12-2023 Evaluation note* Encounter Date Diagnosis [...] will check vitamin B12 level next visit [employer] Other 12-11-2023 Evaluation note* Encounter Date Diagnosis Assessment Notes Treatment Notes Treatment Clinical Notes Oct, Lumbar degenerative disc disease (ICD-10 - M51.36) [employer] Other 12-07-2023 Evaluation note* Encounter Date Diagnosis Assessment Notes Treatment Notes Treatment Clinical Notes Oct, Bronchitis (ICD-10 - J40) Finish meds. No acute need for antibiotic at this time Oct, Diabetes mellitus with chronic kidney disease (ICD-10 - E11.22) Due for labs, followup w Dr. Mcconnell Oct, Lumbar degenerative disc disease (ICD-10 - M51.36) Pt will contact neurosurgery. [employer] Other 10-27-2023 Evaluation note* Encounter Date Diagnosis Assessment Notes Treatment Notes Treatment Clinical Notes Aug, Chronic kidney disease, stage 4 (severe) (ICD-10 - N18.4) [employer] Other 10-24-2023 Evaluation note* Encounter Date Diagnosis [...] (ICD-10 - M51.36) Pt requests referral to [facility] Reviewed OARRS report. Aug, Stress incontinence of urine (ICD-10 - N39.3) R/o infection. Discussed could be related to her diabetes med as well. [employer] Other 10-12-2023 Evaluation note* Encounter Date Diagnosis Assessment Notes Treatment Notes Treatment Clinical Notes Aug, Lumbar degenerative disc disease (ICD-10 - M51.36) [employer] Other 09-11-2023 Evaluation note* Encounter Date Diagnosis Assessment Notes Treatment Notes Treatment Clinical Notes Jul, Lumbar degenerative disc disease (ICD-10 - M51.36) [employer] Other 09-05-2023 Evaluation note* Encounter Date Diagnosis [...] refill. Oarrs reviewed. No med changes needed. [employer] Other 07-05-2023 Evaluation note* Encounter Date Diagnosis Assessment Notes Treatment Notes Treatment Clinical Notes May, C. difficile colitis (ICD-10 - A04.72) [employer] Other 06-19-2023 Evaluation note* Encounter Date Diagnosis Assessment Notes Treatment Notes Treatment Clinical Notes Apr, Skin candidiasis (ICD-10 - B37.2) Discussed this is related to her hyperglycemia. Will treat w nystatin, but needs improvement in diet and glucose readings. Apr, Type 2 diabetes mellitus with hyperglycemia, unspecified whether visual lead insulin use (ICD-10 - E11.65) Pt agrees to see Dr Mcconnell again. Recently sent to ER for glucose of 608. Apr, Tremor of both hands (ICD-10 - R25.1) Referral to Dr. Lopez Apr, Memory changes (ICD- 10 - R41.3) Referral to Dr. Lopez Apr, Gastroesophageal reflux disease without esophagitis (ICD-10 - K21.9) Improved on carafate w PPI. [employer] Other 06-01-2023 Evaluation note* Encounter Date Diagnosis Assessment Notes Treatment Notes Treatment Clinical Notes Apr, Gastroesophageal ref lux disease without esophagitis (ICD-10 - K21.9) [employer] Other 04-28-2023 Evaluation note* Encounter Date Diagnosis [...] get lab ordered on 02/20 today Feb, bitumastic applier (current) use of insulin (ICD-10 - Z79.4) [employer] Other 04-26-2023 Evaluation note* Encounter Date Diagnosis Assessment Notes Treatment Notes Treatment Clinical Notes Feb, C. difficile colitis (ICD-10 - A04.72) [employer] Other 04-17-2023 Evaluation note* Encounter Date Diagnosis Assessment Notes Treatment Notes Treatment Clinical Notes Feb, Gastroesophageal ref lux disease without esophagitis (ICD-10 - K21.9) [employer] Other 04-14-2023 Evaluation note* Encounter Date Diagnosis Assessment Notes Treatment Notes Treatment Clinical Notes Feb, Chronic diarrhea (ICD-10 - K52.9) [employer] Other 04-11-2023 Evaluation note* Encounter Date Diagnosis [...] it really overall has not been helpful. [employer] Other 01-13-2023 Evaluation note* Encounter Date Diagnosis Assessment Notes Treatment Notes Treatment Clinical Notes Nov, Type 2 diabetes mellitus with hyperglycemia, unspecified whether visual lead insulin use (ICD-10 - E11.65) [employer] Other 10-14-2021 Evaluation note* Encounter Date Diagnosis [...] training 6. Follow up in 3 months. [employer] Other Evaluation + Plan note No data available for this section General Surgery [facility] + Plan note Future Appointments Appointment Date:11/06/2024 11:00:00 AM Scheduled Provider: Location:[facility] [place] Appointment Type:URO Nurse Visit Appointment Date:12/08/2024 11:40:00 AM Scheduled Provider:FRANCHESCA PERAZA PA-C Location:[facility] Appointment Type:URO Office Visit Diagnostic Tests Pending * Renal Function Panel 11/04/24 [facility] evaluation + Plan note Future Appointments Appointment Date:12/08/2024 11:40:00 AM Scheduled Provider:FRANCHESCA PERAZA PA-C Location:[facility] Appointment Type:URO Office Visit Appointment Date:12/18/2024 11:20:00 AM Scheduled Provider:FRANCHESCA PERAZA PA-C Location:[facility] Appointment Type:URO Complex Office Visit [facility] evaluation + Plan note Future Appointments Appointment Date:12/18/2024 11:20:00 AM Scheduled Provider:FRANCHESCA PERAZA PA-C Location:[facility] Appointment Type:URO Complex Office Visit [facility] evaluation noteNo InformationA[employer]on Pharm[employer] Other evaluation noteA[employer] Other evaluation noteA[employer] Other evaluation note* Diagnosis Onset Date Resolution Status Chalazion of right eye acute Immunization due acute Urinary incontinence acute [facility] Work Phone: Evaluation note* Diagnosis Onset Date Resolution Status Chalazion of right eye acute Immunization due acute Urinary incontinence acute Diabetes mellitus with hyperglycemia acute Hypertension acute Hypothyroidism acute Lumbar spondylosis acute Secondary hyperparathyroidism acute [facility] Work Phone: Evaluation note* Diagnosis Onset [...] acute Thrush of mouth and esophagus acute [facility] Work Phone: evaluation note* Diagnosis Onset [...] IV acute UTI (urinary tract infection) acute [facility] Work Phone: Evaluation note* Diagnosis Onset [...] acute Thrush of mouth and esophagus acute [id number] acute Secondary hyperparathyroidism acute [facility] Work Phone: Evaluation note* Diagnosis Onset [...] acute Thrush of mouth and esophagus acute [id number] acute CKD (chronic kidney disease) stage 3, GFR 30-59 ml/min acute Hyperlipidemia acute [id number] acute Secondary hyperparathyroidism acute Type 2 diabetes mellitus wit h diabetic chronic kidney disease acute Tremor acute [facility] Work Phone: Evaluation note* Diagnosis Onset [...] acute Thrush of mouth and esophagus acute [id number] acute CKD (chronic kidney disease) stage 3, GFR 30-59 ml/min acute Hyperlipidemia acute [id number] acute Secondary hyperparathyroidism acute Type 2 diabetes mellitus wit h diabetic chronic kidney disease acute Acute on chronic diastolic C HF (congestive heart failure) acute [id number] acute Tremor acute [id number] acute [facility] Work Phone: Evaluation note* Diagnosis Onset [...] acute Thrush of mouth and esophagus acute [id number] acute CKD (chronic kidney disease) stage 3, GFR 30-59 ml/min acute Hyperlipidemia acute [id number] acute Secondary hyperparathyroidism acute Type 2 diabetes mellitus wit h diabetic chronic kidney disease acute Acute on chronic diastolic C HF (congestive heart failure) acute [id number] acute Tremor acute [id number] acute Mass of right axilla acute [facility] Work Phone: Evaluation note* Diagnosis Onset [...] acute Thrush of mouth and esophagus acute [id number] acute CKD (chronic kidney disease) stage 3, GFR 30-59 ml/min acute Hyperlipidemia acute [id number] acute Secondary hyperparathyroidism acute Type 2 diabetes mellitus wit h diabetic chronic kidney disease acute Acute on chronic diastolic C HF (congestive heart failure) acute [id number] acute Tremor acute [id number] acute Mass of right axilla acute CHF (congestive heart failure) acute Dehydration acute [id number] acute [id number] acute [facility] Work Phone: Evaluation note* Diagnosis Onset [...] acute Thrush of mouth and esophagus acute [id number] acute CKD (chronic kidney disease) stage 3, GFR 30-59 ml/min acute Hyperlipidemia acute [id number] acute Secondary hyperparathyroidism acute Type 2 diabetes mellitus wit h diabetic chronic kidney disease acute Acute on chronic diastolic C HF (congestive heart failure) acute [id number] acute Tremor acute [id number] acute Back pain with history of spinal surgery acute Cervical disc disease acute CKD (chronic kidney disease), stage IV acute Mass of right axilla acute CHF (congestive heart failure) acute Dehydration acute [id number] acute [id number] acute Dysuria acute [facility] Work Phone: Evaluation note* Diagnosis Onset Date Resolution Status Lumbar degenerative disc disease acute Thrush of mouth and esophagus acute [id number] acute CKD (chronic kidney disease) stage 3, GFR 30-59 ml/min acute Hyperlipidemia acute [id number] acute Secondary hyperparathyroidism acute Type 2 diabetes mellitus wit h diabetic chronic kidney disease acute Acute on chronic diastolic C HF (congestive heart failure) acute [id number] acute Tremor acute [id number] acute Back pain with history of spinal surgery acute Cervical disc disease acute CKD (chronic kidney disease), stage IV acute Mass of right axilla acute CHF (congestive heart failure) acute Dehydration acute [id number] acute [id number] acute Dysuria acute [facility] Work Phone: Evaluation note* Diagnosis JED (obstructive sleep apnea)- Primary Obstructive sleep apnea (adult) (pediatric) Hypothyroidism (acquired) ([facility]) Unspecified hypothyroidism documented in this encounter [facility] HealthcareEvaluation note* Diagnosis Essential tremor- Primary Diabetic polyneuropathy associated with type 2 diabetes mellitus ([facility]) Balance disorder Sensory ataxia Lack of coordination Debility Unspecified debility Weakness Other malaise and fatigue Paresthesias Disturbance of skin sensation documented in this encounter [facility] HealthcareEvaluation note* Diagnosis JED (obstructive sleep apnea)- Primary Obstructive sleep apnea (adult) (pediatric) LPRD (laryngopharyngeal reflux disease) Acute laryngitis, without mention of obstruction Throat tightness documented in this encounter [facility] HealthcareHistory general Narrative - Reported* Type Description [...] History COLONOSCOPY 04/10/2019 Hospitalization History See above [employer] Other History general Narrative - Reported* Type [...] History COLONOSCOPY 04/10/2019 Hospitalization History See above [employer] Other HisTC3 Health general Narrative - ReportedNoWayin [employer] Other Histefc general Narrative - ReportedNoWayin [employer] Other Hishudm general Narrative - Reported* Type Description Date [...] GERD 2022 Hospitalization History DIABETES ISSUES 2022 [employer] Other Hospital Discharge instructions No data available for this section [facility] Discharge instructionsAmbulatory Orders* Referral to Neurology Time Frame: 06/16/24, Location: None Selected [facility] Work Phone: Hospital Discharge instructionsAmbulatory Orders* Referral to ENT Time Frame: 06/25/24, Location: None Selected [facility] Work Phone: Hospital Discharge instructions Additional Instructions Follow-up with your primary care doctor as you might need medication adjustments to manage your high blood sugar Return to ED if develop worsening [facility] Work [facility]: Progress note No data available for this section General Surgery [facility] Reason for referral (narrative)No reason for referral information available[facility] Work Phone: Reason for visit Narrative* Consultation (Routine) - Closed Specialty Diagnoses / Procedures Referred By Contac t Referred To Contact Neurology Diagnoses Tremor, unspecified Procedures [place] OFFICE/OUTPATIENT NEW LOW MDM 30 MINUTES Shantel Steven MD [address] [place] [address] Gio Choe MD [address] [place] [address] Referral ID Status Reason Start Date Expiration Date V isits Requested Visits Authorized [id number] Closed Consult and Treat 06/27/2024 12/24/2024 1 1 [facility] Healthcare Summary Purpose Family History Relationship [...] se, stage 4 (severe) (N18.4) Referral Organization [facility] Referring Provider First Name Shantel Referring Provider Last Name Tenisha Referring Provider Specialty Family Medi cine Referred Organization [facility] Nephrology Referred Provider Cherie Rapp Referred Address [address] [place],[address] Referred Provider Specialty Nephrology Referral Priority Routine General Notes Mariela Kingston 11:35:41 AM >received today, sent P2P Reason *FU 09/13 lumbar p ain Diagnosis 1 Lumbar degenerative disc disease (M51.36) Referral Organization [facility] [employer] Referring Provider First Name Shantel Referring Provider Last Name Tenisha Referring Provider Specialty [facility] Referred Organization [facility] Referred Provider Terell Soliz Referred Address [address] [place], [place],[address] Referred Provider Specialty Pain Medicin e Referral Priority Routine General Notes EfremaidenMariela reyes 03:09:25 PM >received today, waiting for notes to be locked Mariela Kingston 09/06/2023 10:08:29 AM >notes locked, referral faxed Clinical Notes F: [id number] Reason Poorly controlled di abetes Diagnosis 1 Type 2 diabetes maranda itus with hyperglycemia, unspecified whether visual lead insulin use (E11.65) Referral Organization [facility] [employer] Referring Provider First Name Shantel Referring Provider Last Name Tenisha Referring Provider Specialty [facility] Referred Organization Unknown Facility Referred Provider Joshua Mcconnell Referred Provider Specialty Internal Med icine Referral Priority Routine Reason tremor and memory lo ss - family history of dementia Diagnosis 1 Tremor of both hands (R25.1) Referral Organization [facility] [employer] Referring Provider First Name Shantel Referring Provider Last Name Tenisha Referring Provider Specialty [facility] Referred Organization Unknown Facility Referred Provider Emery [...] disc disease Thrush of mouth and esophagus [id number] Secondary hyperparathyroidism Chief Complaint medication review Amb [...] disc disease Thrush of mouth and esophagus [id number] CKD (chronic kidney disease) stage 3, GFR 30-59 ml/min Hyperlipidemia [id number] Secondary hyperparathyroidism Type 2 diabetes mellitus with [...] disc disease Thrush of mouth and esophagus MNT-[id number] CKD (chronic kidney disease) stage 3, GFR 30-59 ml/min Hyperlipidemia [id number] 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 Acute on chronic diastolic CHF (congestive heart failure) [id number]-[id number] Tremor [id number] Chief Complaint difficulty swallowin g Amb Documentation [...] disc disease Thrush of mouth and esophagus [id number] CKD (chronic kidney disease) stage 3, GFR 30-59 ml/min Hyperlipidemia [id number] 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 Acute on chronic diastolic CHF (congestive heart failure) [id number] Tremor [id number]-[id number] Mass of right axilla Chief Complaint difficulty [...] disc disease Thrush of mouth and esophagus [id number] CKD (chronic kidney disease) stage 3, GFR 30-59 ml/min Hyperlipidemia [id number] 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 Acute on chronic diastolic CHF (congestive heart failure) [id number] Tremor [id number]-[id number] Mass of right axilla Chief Complaint difficulty [...] disc disease Thrush of mouth and esophagus [id number]-[id number] CKD (chronic kidney disease) stage 3, GFR 30-59 ml/min Hyperlipidemia [id number] 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 Acute on chronic diastolic CHF (congestive heart failure) [id number] Tremor QZF-[id number] Mass of right axilla CHF (congestive heart failure) Dehydration [id number] Chief Complaint difficulty swallowin g Amb Documentation [...] disc disease Thrush of mouth and esophagus [id number] CKD (chronic kidney disease) stage 3, GFR 30-59 ml/min Hyperlipidemia [id number]-[id number] 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 Acute on chronic diastolic CHF (congestive heart failure) [id number] Tremor [id number]-[id number] Back pain with history of spinal surgery Cervical disc disease CKD (chronic kidney disease), stage IV Mass of right axilla CHF (congestive heart failure) Dehydration [id number] CSE-[id number]-[id number] Dysuria Chief Complaint throat problem SOB RENAL CKD 4 TBH follow up 3 month f/u Kidney injury, high BP R30.0 UA Amb Documentation TBH f/u:Pulmonary Adema Reason for Visit Lumbar degenerative disc disease Thrush of mouth and esophagus [id number] CKD (chronic kidney disease) stage 3, GFR 30-59 ml/min Hyperlipidemia [id number]-[id number] 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 Acute on chronic diastolic CHF (congestive heart failure) [id number] Tremor [id number]-[id number] Back pain with history of spinal surgery Cervical disc disease CKD (chronic kidney disease), stage IV Mass of right axilla CHF (congestive heart failure) Dehydration [id number]-[id number] HRB-THQZ-[id number] Dysuria Chief Complaint Admit Date gen weakness [...] 2024 12:52pm GERD (gastroesophageal reflux disease) [facility] 2024 12:52pm Lumbar degenerative disc disease Februar y 2024 12:52pm Seborrhea capitis in adult December 12:52pm Type 2 diabetes mellitus wit h diabetic chronic kidney disease December 26, 2024 12:52pm Acute on chronic diastolic CHF (congesti ve heart failure) January 06, 2025 3:21pm CKD (chronic kidney disease), stage IV [facility] 2024 3:21pm GERD (gastroesophageal reflux disease) [facility] 2024 3:21pm Lumbar degenerative disc disease 2024 [...] 025 12:52pm Gastroesophageal reflux disease (GERD) F [facility] 2024 3:21pm TB ER:Abd Pain/Chronic Pain January [...] CKD (chronic kidney disease), stage IV [facility] 2024 3:21pm GERD (gastroesophageal reflux disease) [facility] 2024 3:21pm Lumbar degenerative disc disease Februar 2024 3:21pm Type 2 diabetes mellitus wit h hyperglycemia, with long-term current use of January 06, 2025 3:21pm Acute on chronic diastolic CHF (congesti ve heart failure) January 14, 2025 10:00am C. difficile diarrhea January 14, 2025 10 :00am GERD (gastroesophageal reflux disease) [facility] 2024 10:00am Type 2 diabetes mellitus wit h hyperglycemia, with long-term current use of January 14, 2025 10:00am Chief Complaint Admit Date RENAL HOSP F/U November 11, 2024 1:26pm Amb Documentation December 08, 2024 2 :07pm 3 month f/u-HIGH RISK December 09, 2024 1:24pm Gerd/Diabetes-HIGH RISK December 26 2 025 12:52pm Gastroesophageal reflux disease (GERD) F [facility] 2024 3:21pm TBH ER:Abd Pain/Chronic Pain January [...] 2024 12:52pm [facility] 12[facility]52[facility] Lumbar degenerative disc disease Februar y 2024 12:52pm Seborrhea capitis in adult December 12:52pm Type 2 diabetes mellitus wit h diabetic chronic kidney disease December 26, 2024 12:52pm Acute on chronic diastolic CHF (congesti ve heart failure) January 06, 2025 3:21pm CKD (chronic kidney disease), stage IV F [facility]ruary 2024 3:21pm GERD (gastroesophageal reflux disease) [facility] 2024 3:21pm Lumbar degenerative disc disease Februar 2024 3:21pm Type 2 diabetes mellitus wit h hyperglycemia, with long-term current use of January 06, 2025 3:21pm Acute on chronic diastolic CHF (congesti ve heart failure) January 14, 2025 10:00am C. difficile diarrhea January 14, 2025 10 :00am GERD (gastroesophageal reflux disease) [facility] 2024 10:00am Type 2 diabetes mellitus wit h hyperglycemia, with long-term current use of January 14, 2025 10:00am Diarrhea February 09, 2025 1:5 8pm Chief Complaint Admit Date Amb Documentation December 08, 2024 2 :07pm 3 month f/u-HIGH RISK December 09, 2024 1:24pm Gerd/Diabetes-HIGH RISK December 26, 2 025 12:52pm Gastroesophageal reflux disease (GERD) [facility] 2024 3:21pm TBH ER:Abd Pain/Chronic Pain January [...] 2024 12:52pm GERD (gastroesophageal reflux disease) [facility] 2024 12:52pm Lumbar degenerative disc disease uar y 2024 12:52pm Seborrhea capitis in adult December 12:52pm Type 2 diabetes mellitus wit h diabetic chronic kidney disease December 26, 2024 12:52pm Acute on chronic diastolic CHF (congesti ve heart failure) January 06, 2025 3:21pm CKD (chronic kidney disease), stage IV [facility] 2024 3:21pm GERD (gastroesophageal reflux disease) [facility] 2024 3:21pm Lumbar degenerative disc disease Februar 2024 3:21pm Type 2 diabetes mellitus wit h hyperglycemia, with long-term current use of January 06, 2025 3:21pm Acute on chronic diastolic CHF (congesti ve heart failure) January 14, 2025 10:00am C. difficile diarrhea January 14, 2025 10 :00am GERD (gastroesophageal reflux disease) [facility] 2024 10:00am Type 2 diabetes mellitus [...] 025 12:52pm Gastroesophageal reflux disease (GERD) [facility] 2024 3:21pm TBH ER:Abd Pain/Chronic Pain January [...] 2024 12:52pm GERD (gastroesophageal reflux disease) [facility] 2024 12:52pm Lumbar degenerative disc disease uar 2024 12:52pm Seborrhea capitis in adult December 12:52pm Type 2 diabetes mellitus wit h diabetic chronic kidney disease December 26, 2024 12:52pm Acute on chronic diastolic CHF (congesti ve heart failure) January 06, 2025 3:21pm CKD (chronic kidney disease), stage IV [facility] 2024 3:21pm GERD (gastroesophageal reflux disease) [facility] 2024 3:21pm Lumbar degenerative disc disease Februar y 2024 3:21pm Type 2 diabetes mellitus wit h hyperglycemia, with long-term current use of January 06, 2025 3:21pm Acute on chronic diastolic CHF (congesti ve heart failure) January 14, 2025 10:00am C. difficile diarrhea January 14, 2025 10 :00am GERD (gastroesophageal reflux disease) [facility] 2024 10:00am Type 2 diabetes mellitus wit h hyperglycemia, with long-term current use of January 14, 2025 10:00am Acute on chronic diastolic CHF (congesti ve heart failure) February 09, 2025 1:58pm CKD (chronic kidney disease), stage IV [facility] 2024 1:58pm Diarrhea February 09, 2025 1:5 8pm GERD (gastroesophageal reflux disease) [facility] 2024 1:58pm Lumbar degenerative disc disease [...] 2024 12:52pm GERD (gastroesophageal reflux disease) [facility] 2024 12:52pm Lumbar degenerative disc disease Februar y 2024 12:52pm Seborrhea capitis in adult December 12:52pm Type 2 diabetes mellitus wit h diabetic chronic kidney disease December 26, 2024 12:52pm Acute on chronic diastolic CHF (congesti ve heart failure) January 06, 2025 3:21pm CKD (chronic kidney disease), stage IV [facility] 2024 3:21pm GERD (gastroesophageal reflux disease) [facility] 2024 3:21pm Lumbar degenerative disc disease 2024 3:21pm Type 2 diabetes mellitus wit h hyperglycemia, with long-term current use of January 06, 2025 3:21pm Acute on chronic diastolic CHF (congesti ve heart failure) January 14, 2025 10:00am C. difficile diarrhea January 14, 2025 10 :00am GERD (gastroesophageal reflux disease) [facility] 2024 10:00am Type 2 diabetes mellitus wit h hyperglycemia, with long-term current use of January 14, 2025 10:00am Acute on chronic diastolic CHF (congesti ve heart failure) February 09, 2025 1:58pm CKD (chronic kidney disease), stage IV [facility] 2024 1:58pm Diarrhea February 09, 2025 1:5 8pm GERD (gastroesophageal reflux disease) [facility] 2024 1:58pm Lumbar degenerative disc disease [...] Admit Date Gastroesophageal reflux disease (GERD) [facility] 2024 3:21pm TBH ER:Abd Pain/Chronic Pain January [...] CKD (chronic kidney disease), stage IV [facility] 2024 3:21pm GERD (gastroesophageal reflux disease) [facility] 2024 3:21pm Lumbar degenerative disc disease uar 2024 3:21pm Type 2 diabetes mellitus wit h hyperglycemia, with long-term current use of January 06, 2025 3:21pm Acute on chronic diastolic CHF (congesti ve heart failure) January 14, 2025 10:00am C. difficile diarrhea January 14, 2025 10 :00am GERD (gastroesophageal reflux disease) [facility] 2024 10:00am Type 2 diabetes mellitus wit h hyperglycemia, with long-term current use of January 14, 2025 10:00am Acute on chronic diastolic CHF (congesti ve heart failure) February 09, 2025 1:58pm CKD (chronic kidney disease), stage IV [facility] 2024 1:58pm Diarrhea February 09, 2025 1:5 8pm GERD (gastroesophageal reflux disease) [facility] 2024 1:58pm Lumbar degenerative disc disease [...] 2025 10:19am GERD (gastroesophageal reflux disease) [facility] 2024 2:10pm IBS (irritable bowel syndrome) April [...] 12:10pm R30.0 June 02, 2025 12:3 0pm [facility] F/U June 04, 2025 9:49 am Chief Complaint Admit Date Concerns March 24, 2025 1:51p m HIGH RISK, rash April 16, 2025 10:19 am 6 week follow up April 21, 2025 2:10 pm Amb Documentation May 13, 2025 9:25a m TBH; fall; discuss eczema May 21 10:52am UA, confusion, hallucination June 02, 2025 12:10pm R30.0 June 02, 2025 12:3 0pm [facility] F/U June 04, 2025 9:49 am [...] and content) DATE CREATED AUTHOR 05/10/2018 [facility] DATE CREATED AUTHOR AUTHOR'S ORGANIZ ATION 03/10/2023 [facility] DATE CREATED AUTHOR AUTHOR'S ORGANIZ ATION 10/04/2024 [facility] EP[facility] DATE CREATED AUTHOR AUTHOR'S ORGANIZ ATION 12/21/2024 [facility] DATE CREATED AUTHOR AUTHOR'S ORGANIZ ATION 07/17/2025 [facility] DATE CREATED AUTHOR AUTHOR'S ORGANIZ ATION 07/17/2025 [facility] REASON FOR VISIT (unrecogniz ed section and [...] 2025 Martine Guerrero Attending Provider Active Start: [facility] 2024 Team Status: Active Member Role [...] Care Provider Active Start: December 04, 2024 Nikyk Silverman MD Attending Provider Active Sta rt: [...] Status: Active Member Role Status Dates Shantel Steevn MD Primary Care Provider Active Start: May [...] Status Dates Shatnel Steven MD Primary Care Provider Active Start: [...] End: January 18, 2024 Franchesca Sullivan APRN [employer]-C Attending Provider Act chiqui Start: January [...] August 07, 2024 End: August 07, 2024 Rug Cleaner Relationship Specialty Start Date End Date Shantel Steven MD [address] [place] [id number] PCP - General Family Medicine 06/25/24 Rug Cleaner Relationship Specialty Start Date End Date Shantel Steven MD [address] [place] [address] PCP - General Family Medicine 06/25/24 Rug Cleaner Relationship Specialty Start Date End Date Shantel Steven MD [address] [place] [address] PCP - General Family Medicine 06/25/24 Rug Cleaner Relationship Specialty Start Date End Date Shantel Steven MD [address] [facility] [place] [phone] PCP - General Family Medicine 06/25/24 Rug Cleaner Relationship Specialty Start Date End Date Shantel Steven MD [address] [facility] [place] [address] PCP - General Family Medicine 06/25/24 Rug Cleaner Relationship Specialty Start Date End Date Shantel Steven MD [address] [facility] [place] [address] PCP - General Family Medicine 06/25/24 Rug Cleaner Relationship Specialty Start Date End Date Shantel Steven MD [address] [facility] [place] [address] PCP - General Family Medicine 06/25/24 Rug Cleaner Relationship Specialty Start Date End Date Shantel Steven MD [address] [facility] [place] [phone] PCP - General Family Medicine 06/25/24 Team [...] BE BASED ON THE PRIMARY CLINICAL RECORDS. [employer] provides no warranty or guarantee of the accuracy or completeness of information in this document.
--- NOTE | 2025-07-22 10:18 | SWNOTE1 ---
SW received a call from Cristin at [facility] and pt is current with them. She has PT/OT and skilled nurse coming in.
--- NOTE | 2025-07-22 11:25 | PM.HP ---
HPI H&P: HPI History of Present Illness Chief complaint: AMS,SOB MULTIPLE DAYS, CHF EXACERBATION Narrative: Mrs. Alexander is a 80-year-old female who is known to me from multiple previous encounter. I discharged patient almost 30 days ago. Patient did well at home up until 3 days ago when she started having progressive shortness of breath and dyspnea on exertion. She could not catch her breath. She decided to come to the emergency room. She was found to have another decompensation of heart failure. Patient stated that she has been taking her medications faithfully. Her gives it to her. Her blood pressure was noted to be elevated on presentation which may be contributed to her decompensation. No fever or chills. No abdominal pain, nausea or vomiting. Opioid HPI Opioid Management Most Recent Pain and Opioid Data: Last Pain Scale 0 Today, 08:48 Last Pain Intensity 3 06/09/24, 13:07 Last Pain Assessment Today, 08:48 Last ORT Total Score 1 Today, 08:48 Last ORT Risk Category Low Risk Today, 08:48 PFSH PFS Medical History (Updated 07/22/25 @ 11:27 by Monica Stewart MD) Noncompliance ?Z91.199 - Patient's noncompliance with other medical treatment and regimen due to unspecified reason (ICD-10) Diastolic congestive heart failure ?I50.30 - Unspecified diastolic (congestive) heart failure (ICD-10) CHF (congestive heart failure) ?I50.9 - Heart failure, unspecified (ICD-10) GERD without esophagitis ?K21.9 - Gastro-esophageal reflux disease without esophagitis (ICD-10) Anxiety ?F41.9 - Anxiety disorder, unspecified (ICD-10) Intermittent palpitations ?R00.2 - Palpitations (ICD-10) Acute hyperglycemia ?R73.9 - Hyperglycemia, unspecified (ICD-10) Acute kidney injury ?N17.9 - Acute kidney failure, unspecified (ICD-10) Acute on chronic clinical systolic heart failure ?I50.23 - Acute on chronic systolic (congestive) heart failure (ICD-10) Acute renal failure ?N17.9 - Acute kidney failure, unspecified (ICD-10) Hyperkalemia ?E87.5 - Hyperkalemia (ICD-10) Acute dehydration ?E86.0 - Dehydration (ICD-10) Diabetes mellitus with hyperglycemia, with long-term current use of insulin ?E11.65 - Type 2 diabetes mellitus with hyperglycemia (ICD-10) ?Z79.4 - senior care (current) use of insulin (ICD-10) Paroxysmal atrial fibrillation ?I48.0 - Paroxysmal atrial fibrillation (ICD-10) Hypothyroidism (acquired) ?E03.9 - Hypothyroidism, unspecified (ICD-10) Hypertension ?I10 - Essential (primary) hypertension (ICD-10) Hypokalemia ?E87.6 - Hypokalemia (ICD-10) CHF (congestive heart failure) ?I50.9 - Heart failure, unspecified (ICD-10) Cataracts, bilateral ?H26.9 - Unspecified cataract (ICD-10) Breast cancer ?C50.919 - Malignant neoplasm of unspecified site of unspecified female breast (ICD-10) Surgical History (Updated 07/05/25 @ 00:00 by ) History of cholecystectomy ?Z90.49 - Acquired absence of other specified parts of digestive tract (ICD-10) History of appendectomy ?Z90.49 - Acquired absence of other specified parts of digestive tract (ICD-10) History of hysterectomy ?Z90.710 - Acquired absence of both cervix and uterus (ICD-10) H/O lumbosacral spine surgery ?Z98.890 - Other specified postprocedural states (ICD-10) H/O bilateral mastectomy ?Z90.13 - Acquired absence of bilateral breasts and nipples (ICD-10) Family History Other Family history of CHF (congestive heart failure) Family history of cancer Family history of diabetes mellitus Family history of hypertension H/O mastectomy Social History Within the past year, how often did you have a drink containing alcohol: never Within the past year, how often did you have six or more drinks on one occasion: never Score interpretation: A score less than 3 is consistent with normal alcohol consumption. 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 Highest level of school completed/degree received: high school graduate Do you want help with school or training: No Are you now , , , , never or living with a partner: In a typical week, how many times do you talk on the telephone with family, friends, or neighbors: twice per week How often do you get together with friends or relatives: twice per week How often do you attend latter-day or hindu services: never Do you belong to any clubs or organizations such as latter-day groups unions, fraternal or athletic groups, or school groups: no Total score: 2 Score interpretation: A score of greater than or equal to 2 indicates the lowest level of social isolation. Little interest or pleasure in doing things: not at all Feeling down, depressed, or hopeless: not at all Feel stressed/tense/nervous/anxious/difficulty sleeping: not at all Due to disability, difficulty making decisions: No Do you think of yourself as: straight/heterosexual Gender Identity: female Meds Home Medications and Allergies Home Medications ?Medication ?Instructions ?Recorded ?Confirmed ?Type insulin glargine 100 unit/mL (3 15 unit subcut BEDTIME 04/25/23 07/22/25 History mL) subcutaneous pen (Lantus Solostar U-100 Insulin) alprazolam 0.25 mg tablet 0.25 mg PO TID PRN anxiety 04/30/24 07/22/25 History levothyroxine 125 mcg tablet 125 mcg PO .acb 04/30/24 07/22/25 History insulin NPH isoph U-100 human 100 1 unit subcut AC 06/09/24 07/22/25 History unit/mL (3 mL) subcutaneous pen (Novolin N FlexPen) cholecalciferol (vitamin D3) 125 125 mcg PO DAILY 06/18/24 07/22/25 History mcg (5,000 unit) tablet (Vitamin D3) rivaroxaban 20 mg tablet (Xarelto) 20 mg PO DAILY 06/18/24 07/22/25 History vit C 226 mg-vit E 90 mg-copper 1 cap PO BID 06/18/24 07/22/25 History 0.8 mg-zinc oxide-lutein 5 mg capsule (PreserVision Lutein) famotidine 20 mg tablet 20 mg PO .qhs 07/24/24 07/22/25 History omeprazole 40 mg capsule,delayed 40 mg PO .acb 07/24/24 07/22/25 History release buspirone 5 mg tablet 5 mg PO BID 01/25/25 07/22/25 History duloxetine 20 mg capsule,delayed 20 mg PO DAILY 01/25/25 07/22/25 History release metoprolol tartrate 25 mg tablet 25 mg PO BID #60 tabs 05/31/25 07/22/25 Rx amlodipine 5 mg tablet 5 mg PO QD 30 days #30 tabs 06/10/25 07/22/25 Rx potassium chloride 20 mEq 20 meq PO DAILY #30 tabs 07/01/25 07/22/25 Rx tablet,extended release furosemide 40 mg tablet 40 mg PO .qd 07/22/25 07/22/25 History Allergies Allergy/AdvReac Type Severity Reaction Status Date / Time Iodinated Contrast Media Allergy Intermediate Hives Verified 07/22/25 05:01 shellfish derived Allergy Intermediate Hives Verified 07/22/25 05:01 Sulfa (Sulfonamide Allergy Unknown Rash Verified 07/22/25 05:01 Antibiotics) Exam Narrative Exam Narrative: [pt is awake and alert. oriented to place, time and person HEENT: [place] conjunctiva and NL buccal mucosa Neck: Supple, no tenderness Endocrine: No Thyromegaly. Vascular: No JVD or carotid bruit. Lymphatic: No cervical lymphadenopathy. Chest: Bilateral crackles. Diminished breath sounds Heart RRR, no extra sound or murmur. Abd: Soft, no tenderness, no rebound and no rigidity. Increase abd girth therefore clinically I could not exclude the possibility of intra abd mass or organomegaly. LE: No cyanosis or clubbing, no varices. +1 pitting edema in both legs Neuro: A A O. Nl speech, comprehension and attention. Symmetrical motor and tone however patient has moderate functional loss. She uses rollator at home []] Constitutional Vital Signs, click to edit/add: Last Vital Signs Temp 97.6 F 07/22/25 08:48 Pulse 84 07/22/25 08:48 Resp 18 07/22/25 08:48 BP 170/75 H 07/22/25 08:48 Pulse Ox 95 07/22/25 08:48 O2 Del Method Nasal Cannula 07/22/25 08:48 O2 Flow Rate 3 07/22/25 08:48 Results Labs Labs: Short CBC 07/22/25 Range/Units 05:55 WBC 6.1 (4.0-11.0) 10^3/uL Hgb 10.5 L (12.0-16.0) g/dL Hct 32.6 L (36.0-48.0) % Plt Count 200 (150-450) 10^3/uL BMP 07/22/25 05:55 Sodium 143 Potassium 4.8 Chloride 109 H Carbon Dioxide 26.1 BUN 39.0 H Creatinine 1.45 H Glucose 150 H Calcium 8.2 L Liver Function 07/22/25 Range/Units 05:55 Total Bilirubin 0.4 (0.2-1.0) mg/dL AST 12 L (15-37) U/L ALT 15 (14-59) U/L Alkaline Phosphatase 137 H (46-116) U/L Albumin 2.1 L (3.4-5.0) g/dL Assessment and Plan Assessment and Plan (1) Hypertensive urgency: (2) CKD (chronic kidney disease): (3) Acute diastolic heart failure: (4) Acute hypoxic respiratory failure: (5) Pleural effusion on left: (6) Bilateral pleural effusion: Plan Acute hypoxic respiratory failure, tachypnea, respiratory distress saturation 91% on presentation. Respiratory rate is about 27 on presentation. Likely multifactorial caused by Acute diastolic heart failure and pulmonary edema, likely triggered by hypertensive urgency. Chest x-ray showed worsening pulmonary interstitial edema and pleural effusion. Suspect underlying restrictive lung disease secondary to obesity. Pleural effusion. Bilateral. Likely transudative. Could not exclude the possibility of exudative process. Hypertensive urgency. Chronic hypoxic respiratory failure on oxygen. I had accepted to admit patient to the medical telemetry unit Started patient on intravenous diuretics Input and output measurement. Blood pressure control Hypertensive urgency. Recurrent. Rule out the possibility of secondary hypertension such as pheochromocytoma, hyperaldosteronnemia or renal artery stenosis. Requested to check metanephrine, aldosterone, renin, aldosterone and renin ratio will be calculated. If ratio is above 20, most likely patient has hyper Angel I also requested renal artery Doppler to rule out renal artery stenosis Paroxysmal A-fib. Patient is in sinus rhythm on presentation Continue Xarelto Continue beta-favian. Hypothyroidism Continue Synthroid. CKD stage III At baseline at this time Monitor kidney function test daily Functional impairment PT OT treatment Patient had declined to go to any skilled facility at home. She does have adequate support at home. She lives with her and son. She has rollator Morbid obesity Recommended dietitian consultation. Recommend lifestyle modification and exercise. Patient uses a scooter at home Diabetes, fair control. Continue home regimen. Sliding scale coverage. DVT prophylaxis Patient is already on Xarelto Chronic medical conditions not listed above, incidental findings seen on labs and imaging. These would need to be addressed. Could be addressed when time and condition are appropriate. Could be addressed in the outpatient setting by PCP collaboration with other needed outpatient providers. Urinary Catheter Management Urinary Catheter Management Urethral: Cath placed during this visit: no
--- NOTE | 2025-07-22 11:31 | SWNOTE1 ---
BIJAL met with pt to discuss dc needs. SW familiar with pt from previous stays. Pt is still current with [facility], PT/OT and [facility] coming in. Pt does wear home oxygen with ambulation at 2 liters and it is from BIJAL Cohen to call [facility] to verify. Pt does use a walker at home. Pt voiced she has not been feeling well for the past 3 days. Voiced she feels she is breathing better right now. At this time pt denies any needs. SW to follow as needed.
--- NOTE | 2025-07-22 11:35 | SWNOTE1 ---
BIJAL did call and speak with Yamilet at [facility], she did confirm that pt is prescribed 2 liters of oxygen nasal canula with activity.
[2025-07-22] MEDS: AMLODIPINE BESYLATE 5 MG TABLET PO (12:14)
[2025-07-22] MEDS: METOPROLOL TARTRATE 25 MG TABLET PO ×2 (12:14→21:33)
[2025-07-22] MEDS: INSULIN ASPART 300 UNIT/3 ML PEN SUBQ ×2 (12:14→21:34)
--- NOTE | 2025-07-22 13:51 | SWNOTE1 ---
Important Message from [employer] reviewed and discussed with patient. Pt. verbalized understanding and signed the form. Original given to patient and copy placed in patient?s chart.
[2025-07-22] MEDS: FUROSEMIDE 20 MG/2 ML VIAL IVP (14:15)
[2025-07-22] MEDS: RIVAROXABAN 10 MG TABLET 20 MG PO (16:45)
[2025-07-22] MEDS: BUSPIRONE HCL 10 MG TABLET 5 MG PO (21:32)
[2025-07-22] MEDS: VITS A,C,E/LUTEIN/MINERALS 1 TABLET 1 TAB PO (21:32)
[2025-07-22] MEDS: FUROSEMIDE 40 MG/4 ML VIAL IVP (21:33)
[2025-07-22] MEDS: ALPRAZOLAM 0.25 MG TABLET PO (22:56)
[2025-07-23] VITALS (23 sets, daily range): BP systolic 128–162; BP diastolic 58–84; PULSE 62–78; TEMP 35.6–36.5; O2SAT 93–100
[2025-07-23] MEDS: PANTOPRAZOLE SODIUM 40 MG TABLET.DR PO (06:09)
[2025-07-23] MEDS: LEVOTHYROXINE SODIUM 125 MCG TABLET PO (06:09)
--- NOTE | 2025-07-23 08:10 | CM.NOTE ---
Rounds made with Dr. Stewart, plan of care discussed with pt and . No discharge today, continue diuresis.
[2025-07-23 08:25] LABS: Anion Gap 11.9; Blood Urea Nitrogen 41.0 mg/dL (7.0-18.0); Calcium 8.3 mg/dL (8.5-10.1); Carbon Dioxide 27.5 mmol/L (21.0-32.0); Chloride 109 mmol/L (98-107); Estimated GFR (African America 37 (>=60 mL/min/1.73m^2); Estimated GFR (Non-African Ame 30 (>=60 mL/min/1.73m^2); Glucose 151 mg/dL (74-106); Potassium 4.4 mmol/L (3.5-5.1); Sodium 144 mmol/L (136-145)
[2025-07-23] MEDS: DULOXETINE HCL 20 MG CAPSULE.DR PO (08:42)
[2025-07-23] MEDS: VITS A,C,E/LUTEIN/MINERALS 1 TABLET 1 TAB PO (08:42)
[2025-07-23] MEDS: BUSPIRONE HCL 10 MG TABLET 5 MG PO (08:43)
[2025-07-23] MEDS: POTASSIUM CHLORIDE 10 MEQ ER TABLET 20 MEQ PO (08:43)
[2025-07-23] MEDS: METOPROLOL TARTRATE 25 MG TABLET PO (08:43)
[2025-07-23] MEDS: AMLODIPINE BESYLATE 5 MG TABLET PO (08:44)
[2025-07-23] MEDS: CHOLECALCIFEROL (VITAMIN D3) 125 MCG/5,000 UNIT TABLET PO (08:44)
[2025-07-23] MEDS: FUROSEMIDE 40 MG/4 ML VIAL IVP (08:44)
[2025-07-23] MEDS: INSULIN ASPART 300 UNIT/3 ML PEN SUBQ ×2 (08:49→17:35)
--- NOTE | 2025-07-23 10:52 | PM.PN ---
Progress Note: Subjective Subjective Interval history: Patient is feeling much better. Decreased somewhat of her shortness of breath and tachypnea. No chest pain. No abdominal pain. Exam Narrative Exam Narrative: [pt is awake and alert. oriented to place, time and person HEENT: [place] conjunctiva and NL buccal mucosa Neck: Supple, no tenderness Endocrine: No Thyromegaly. Vascular: No JVD or carotid bruit. Lymphatic: No cervical lymphadenopathy. Chest: Bilateral crackles. Diminished breath sounds Heart RRR, no extra sound or murmur. Abd: Soft, no tenderness, no rebound and no rigidity. Increase abd girth therefore clinically I could not exclude the possibility of intra abd mass or organomegaly. LE: No cyanosis or clubbing, no varices. +1 pitting edema in both legs Neuro: A A O. Nl speech, comprehension and attention. Symmetrical motor and tone however patient has moderate functional loss. She uses rollator at home []] Constitutional Vital Signs, click to edit/add: Last Vital Signs Temp 97.6 F 07/23/25 07:26 Pulse 67 07/23/25 09:55 Resp 18 07/23/25 07:26 BP 162/80 H 07/23/25 07:26 Pulse Ox 100 07/23/25 10:11 O2 Del Method Nasal Cannula 07/23/25 10:11 O2 Flow Rate 3 07/23/25 10:11 Progress Note: Objective Labs Labs: [facility] 07/23/25 07:58 Sodium 144 Potassium 4.4 Chloride 109 H Carbon Dioxide 27.5 BUN 41.0 H Creatinine 1.64 H Glucose 151 H Calcium 8.3 L Progress Note: A&P Assessment and Plan (1) Hypertensive urgency: (2) CKD (chronic kidney disease): (3) Acute diastolic heart failure: (4) Acute hypoxic respiratory failure: (5) Pleural effusion on left: (6) Bilateral pleural effusion: Plan Acute hypoxic respiratory failure, tachypnea, respiratory distress saturation 91% on presentation. Respiratory rate is about 27 on presentation. Likely multifactorial caused by Acute diastolic heart failure and pulmonary edema, likely triggered by hypertensive urgency. Chest x-ray showed worsening pulmonary interstitial edema and pleural effusion. Suspect underlying restrictive lung disease secondary to obesity. Pleural effusion. Bilateral. Likely transudative. Could not exclude the possibility of exudative process. Hypertensive urgency. Chronic hypoxic respiratory failure on oxygen. Continue patient on intravenous diuretics Input and output measurement. Thus far she is 1.5 negative balance. Blood pressure control. Hypertensive urgency. Recurrent. Rule out the possibility of secondary hypertension such as pheochromocytoma, hyperaldosteronnemia or renal artery stenosis. Requested to check metanephrine, aldosterone, renin, aldosterone and renin ratio will be calculated. If ratio is above 20, most likely patient has hyper Angel I also requested renal artery Doppler to rule out renal artery stenosis All still pending. Paroxysmal A-fib. Patient is in sinus rhythm on presentation Continue Xarelto Continue beta-favian. Hypothyroidism Continue Synthroid. CKD stage III At baseline at this time Monitor kidney function test daily Acceptable rise of creatinine for the sake of keeping patient in euvolemic state. Functional impairment PT OT treatment Patient had declined to go to any skilled facility at home. She does have adequate support at home. She lives with her and son. She has rollator Morbid obesity Recommended dietitian consultation. Recommend lifestyle modification and exercise. Patient uses a scooter at home Diabetes, fair control. Continue home regimen. Sliding scale coverage. DVT prophylaxis Patient is already on Xarelto Chronic medical conditions not listed above, incidental findings seen on labs and imaging. These would need to be addressed. Could be addressed when time and condition are appropriate. Could be addressed in the outpatient setting by PCP collaboration with other needed outpatient providers. I discussed her case with her . Urinary Catheter Management Urinary Catheter Management Urethral: Cath placed during this visit: no
--- NOTE | 2025-07-23 13:28 | SWNOTE1 ---
PT/OT recommended home health at discharge. Pt is current with [facility] and would like to resume them.
[2025-07-23] MEDS: RIVAROXABAN 10 MG TABLET 20 MG PO (17:37)
--- NOTE | 2025-07-24 00:28 | PC.NURSE ---
Hospitalist notified patient left AMA and was signed out by .
--- NOTE | 2025-07-24 07:06 | PM.DS1 ---
DS: Providers Provider Date of admission: 07/22/25 08:29 Primary care physician: Theodora Cuevas MD Consults: 07/22/25 Occupational Therapy Eval and Treat Routine Reason for consultation: weakness Physical Therapy Eval and Treat Routine Reason for consultation: weakness Anticipated date of discharge: 07/23/25 DS: Diagnosis Discharge Diagnosis (1) Hypertensive urgency: (2) CKD (chronic kidney disease): (3) Acute diastolic heart failure: (4) Acute hypoxic respiratory failure: (5) Pleural effusion on left: (6) Bilateral pleural effusion: Plan As listed above, below and others that are not listed DS: Summary Hospital Course Hospital Course: Mrs. Luevano is a 80-year-old female who came in with shortness of breath and was found to have the following: Acute hypoxic respiratory failure, tachypnea, respiratory distress saturation 91% on presentation. Respiratory rate is about 27 on presentation. Likely multifactorial caused by Acute diastolic heart failure and pulmonary edema, likely triggered by hypertensive urgency. Chest x-ray showed worsening pulmonary interstitial edema and pleural effusion. Suspect underlying restrictive lung disease secondary to obesity. Pleural effusion. Bilateral. Likely transudative. Could not exclude the possibility of exudative process. Hypertensive urgency. Chronic hypoxic respiratory failure on oxygen. Continue patient on intravenous diuretics Input and output measurement. Thus far she is 1.5 negative balance. Blood pressure control. Hypertensive urgency. Recurrent. That is probably contributing to her recurrent episode of CHF. Rule out the possibility of secondary hypertension such as pheochromocytoma, hyperaldosteronnemia or renal artery stenosis. Patient also may have sleep apnea contributing to her resistant hypertension that is probably contributing to her recurrent episode of CHF Requested to check metanephrine, aldosterone, renin, aldosterone and renin ratio will be calculated. If ratio is above 20, most likely patient has hyper Angel I also requested renal artery Doppler to rule out renal artery stenosis. This came back negative for significant renal artery stenosis Lab work for secondary hypertension is still pending. These would need to be followed up by PCP. Paroxysmal A-fib. Patient is in sinus rhythm on presentation Continue Xarelto Continue beta-favian. Hypothyroidism Continue Synthroid. CKD stage III At baseline at this time Monitor kidney function test daily Acceptable rise of creatinine for the sake of keeping patient in euvolemic state. Functional impairment PT OT treatment Patient had declined to go to any skilled facility at home. She does have adequate support at home. She lives with her and son. She has rollator Morbid obesity Recommended dietitian consultation. Recommend lifestyle modification and exercise. Patient uses a scooter at home Diabetes, fair control. Continue home regimen. Sliding scale coverage. DVT prophylaxis Patient is already on Xarelto Chronic medical conditions not listed above, incidental findings seen on labs and imaging. These would need to be addressed. Could be addressed when time and condition are appropriate. Could be addressed in the outpatient setting by PCP collaboration with other needed outpatient providers. Acute delirium Patient developed confusion, disorientation, agitation and restlessness. Patient was requesting to be discharged home. Her came and he could not settle her down. decided to sign her out of the hospital AGAINST MEDICAL ADVICE understanding potential risk and implication of leaving the hospital against recommendation including but not limited to worsening respiratory failure and even .. This is not unusual for this patient. When I admitted her in May she had a similar episode of acute delirium. Her and her son ended up taking her back home. With the AMA discharge, unfortunately patient left the hospital without appropriate discharge medications, outpatient follow-up, instructions and other needed appropriate discharge items. I am hoping that her PCP will be able to review hospital records proceed with additional needed diagnostic and therapeutic intervention in the outpatient setting Specifically looking for pending metanephrine, aldosterone and renin level. Time Spent with Patient Time attestation: Total time spent providing and/or coordinating discharge services: Exam Constitutional Vital Signs, click to edit/add: Last Vital Signs Temp 97.7 F 07/23/25 19:25 Pulse 68 07/23/25 23:44 Resp 18 07/23/25 19:25 BP 148/72 H 07/23/25 19:25 Pulse Ox 96 07/23/25 19:25 O2 Del Method Nasal Cannula 07/23/25 19:25 O2 Flow Rate 2 07/23/25 19:25 DS: Data Data Completed and Pending Labs on day of discharge: Labs from last 24 hours 07/23/25 07:58 Sodium 144 Potassium 4.4 Chloride 109 H Carbon Dioxide 27.5 Anion Gap 11.9 BUN 41.0 H Creatinine 1.64 H Est GFR ( Amer) 37 L Est GFR (Non-Af Amer) 30 L BUN/Creatinine Ratio 25.0 Glucose 151 H Calcium 8.3 L Discharge Plan Discharge Disposition: Left Against Medical Advice Discharge Date/Time: 07/23/25 23:57
--- NOTE | 2025-07-24 09:59 | SWNOTE1 ---
Pt's did sign her out Against Medical Advice yesterday evening. BIJAL called Dr. Cuevas's office and left a message for Dr. Cuevas's nurse. BIJAL advised pt was signed out AMA and we are not able to resume her HH. BIJAL requested Dr. Cuevas sign HH care order and send to [facility] to resume as pt would benefit from HH services coming in still. BIJAL will also update [facility] as well. BIJAL faxed [facility] the discharge summary. BIJAL called and spoke to Siobhan at [facility] and updated her that pt was signed out against medical advice last night. They will need to reach out to Dr. Cuevas's office for home health care orders.
--- NOTE | 2025-07-24 10:25 | CM.NOTE ---
Pt left AMA, discussed with Dr. Stewart about signing CRF to resume pt's HH services. CRF completed and given to SW, SW will fax to [facility] along with D/C summary.
--- NOTE | 2025-07-24 10:29 | SWNOTE1 ---
BIJAL spoke with case management, who spoke with doctor and he is agreeable to sign CRF to resume home health with [facility] services. BIJAL faxed CRF to Siobhan at [facility].
--- NOTE | 2025-07-24 12:16 | CM.DCFOLLOWU ---
Person spoke with:pt's How are you feeling? she is doing alright How is your pain? none at this time Did you understand your discharge instructions? signed her out AMA Do you have any questions about your discharge instructions? signed her out AMA Were you given any prescriptions at discharge? Signed her out AMA Were you able to get your prescriptions filled? signed her out AMA Do you understand how to take your medications as ordered? Signed her out AMA. Do you have any questions about your follow up appointment and do you plan to keep your follow up appointment? No questions, will call and make follow up with Dr. Cuevas. BIJAL advised that SW called [facility] and also Dr. Cuevas's office and they are both aware she is at home now and signed out AMA. voiced the nurse will be to the house in about an hour Is there anything else that you would like to discuss?no Questions/Comments/Concerns/Other:none
== END 2025-07-23 23:57 | disposition home health service (06) | DRG 291 ==
LOC: ER 06:50 → MS 08:33
PROVIDERS: Admitting Provider Internal Medicine; Emergency Provider Internal Medicine; PCP Family Medicine; Visit Provider Internal Medicine
DX: I13.0 Hypertensive heart and chronic kidney disease with heart failure and stage 1 through stage 4 chronic kidney disease, or unspecified chronic kidney disease (principal); I50.31 Acute diastolic (congestive) heart failure; J96.21 Acute and chronic respiratory failure with hypoxia; Z68.41 Body mass index [BMI] 40.0-44.9, adult; Z53.29 Procedure and treatment not carried out because of patient's decision for other reasons; N18.30 Chronic kidney disease, stage 3 unspecified; E11.22 Type 2 diabetes mellitus with diabetic chronic kidney disease; Z79.4 Long term (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 insulin; I16.0 Hypertensive urgency; Z99.81 Dependence on supplemental oxygen; I48.0 Paroxysmal atrial fibrillation; Z79.01 Long term (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 anticoagulants; E03.9 Hypothyroidism, unspecified; Z79.890 Hormone replacement therapy; E66.01 Morbid (severe) obesity due to excess calories; R41.0 Disorientation, unspecified; Z90.49 Acquired absence of other specified parts of digestive tract; Z90.710 Acquired absence of both cervix and uterus; Z90.13 Acquired absence of bilateral breasts and nipples; Z85.3 Personal history of malignant neoplasm of breast; K21.9 Gastro-esophageal reflux disease without esophagitis; F41.9 Anxiety disorder, unspecified; Z79.899 Other long term (current) drug therapy
CPT/HCPCS: 36415; 71045; 76775; 80048; 80053; 82088; 82948; 83835; 83880; 84244; 84484; 85025; 93005; 93975; 94640; 94761; 96374; 96375; 97110; 97161; 97165; 97535; 99285; J0360; J1938

== ENCOUNTER 2025-08-20 08:02 | Inpatient (IN) | payer MEDICARE, SELFPAY ==
--- OUTSIDE RECORDS SUMMARY | 2025-08-17 09:55 | XMS_ITS | Continuity of Care Document ---
Author Organization [facility] Address [address] [place] [id number] Phone Care Team Providers Care Supervisor [employer] Name Role Phone Theodora Cuevas MD Primary Care Provider Theodora Cuevas MD Attending Provider Paco Bryant MD Attending Provider [phone] Monica Stewart MD Attending Provider Jarred Durham DO Attending Provider Osbaldo Marlow MD Attending Provider [phone] Wandy Alvarez CMA Attending Provider Unavaila ble Provider, Outside Attending Provider Unavailable Jesus Barbour DO Emergency Provider [phone] Chasity Castro MD Admit Provider [phone] Chasity Castro MD Attending Provider Lizett Jacinto APRN Attending Provider Care Teams Patient Care Team Team Status: Active Member Role Status Dates Theodora Cuevas MD Primary Care Provider Active Visit Care Team Team Status: Inactive Member Role Status Dates Theodora Cuevas MD Primary Care Provider Active Start: May 21, 2025 End: May 21, 2025 Theodora Cuevas MD Attending Provider Active St art: May 21, 2025 End: May 21, 2025 Visit Care Team Team Status: Active Member Role Status Dates Theodora Cuevas MD Primary Care Provider Active Start: May 28, 2025 Paco Bryant MD Attending Provider Active St art: May 28, 2025 Visit Care Team Team Status: Active Member Role Status Dates Theodora Cuevas MD Primary Care Provider Active Start: May 29, 2025 Monica Stewart MD Attending Provider Active Sta rt: May 29, 2025 Visit Care Team Team Status: Active Member Role Status Dates Monica Stewart MD Attending Provider Active Sta rt: May 30, 2025 Theodora Cuevas MD Primary Care Provider Active Start: May 30, 2025 Visit Care Team Team Status: Active Member Role Status Dates Monica Stewart MD Attending Provider Active Sta rt: May 31, 2025 Theodora Cuevas MD Primary Care Provider Active Start: May 31, 2025 Visit Care Team Team Status: Inactive Member Role Status Dates Theodora Cuevas MD Primary Care Provider Active Start: June 02, 2025 End: June 02, 2025 Theodora Cuevas MD Attending Provider Active St art: June 02, 2025 End: June 02, 2025 Visit Care Team Team Status: Inactive Member Role Status Dates Theodora Cuevas MD Primary Care Provider Active Start: June 02, 2025 End: June 02, 2025 Theodora Cuevas MD Attending Provider Active St art: June 02, 2025 End: June 02, 2025 Visit Care Team Team Status: Inactive Member Role Status Dates Theodora Cuevas MD Primary Care Provider Active Start: June 04, 2025 End: June 04, 2025 Theodora Cuevas MD Attending Provider Active St art: June 04, 2025 End: June 04, 2025 Visit Care Team Team Status: Active Member Role Status Dates Theodora Cuevas MD Primary Care Provider Active Start: June 08, 2025 Jarred Durham DO Attending Provider Active S tart: June 08, 2025 Visit Care Team Team Status: Active Member Role Status Cecille Cuevas MD Primary Care Provider Active Start: June 09, 2025 Osbaldo Marlow MD Attending Provider Active Star t: June 09, 2025 Visit Care Team Team Status: Active Member Role Status Dates Theodora Cuevas MD Primary Care Provider Active Start: June 10, 2025 Osbaldo Marlow MD Attending Provider Active Star t: June 10, 2025 Visit Care Team Team Status: Active Member Role Status Dates Theodora Cuevas MD Primary Care Provider Active Start: June 10, 2025 Wandy Alvarez CMA Attending Provider Active Start: June 10, 2025 Visit Care Team Team Status: Inactive Member Role Status Dates Theodora Cuevas MD Primary Care Provider Active Start: June 15, 2025 End: June 15, 2025 Theodora Cuevas MD Attending Provider Active St art: June 15, 2025 End: June 15, 2025 Visit Care Team Team Status: Active Member Role Status Dates Theodora Cuevas MD Primary Care Provider Active Start: June 19, 2025 Outside Provider Attending Provider Active Start : June 19, 2025 Visit Care Team Team Status: Active Member Role Status Dates Theodora Cuevas MD Primary Care Provider Active Start: June 22, 2025 Wandy Alvarez CMA Attending Provider Active Start: June 22, 2025 Visit Care Team Team Status: Active Member Role Status Dates Theodora Cuevas MD Primary Care Provider Active Start: June 28, 2025 Jarred Durham DO Attending Provider Active S tart: June 28, 2025 Visit Care Team Team Status: Active Member Role Status Dates Theodora Cuevas MD Primary Care Provider Active Start: June 29, 2025 Monica Stewart MD Attending Provider Active Sta rt: June 29, 2025 Visit Care Team Team Status: Active Member Role Status Dates Monica Stewart MD Attending Provider Active Sta rt: June 30, 2025 Theodora Cuevas MD Primary Care Provider Active Start: June 30, 2025 Visit Care Team Team Status: Active Member Role Status Dates Theodora Cuevas MD Primary Care Provider Active Start: July 01, 2025 Wandy Alvarez CMA Attending Provider Active Start: July 01, 2025 Visit Care Team Team Status: Active Member Role Status Dates Theodora Cuevas MD Primary Care Provider Active Start: July 01, 2025 Wandy Alvarez CMA Attending Provider Active Start: July 01, 2025 Visit Care Team Team Status: Inactive Member Role Status Dates Theodora Cuevas MD Primary Care Provider Active Start: July 20, 2025 End: July 20, 2025 Theodora Cuevas MD Attending Provider Active St art: July 20, 2025 End: July 20, 2025 Visit Care Team Team Status: Active Member Role Status Dates Theodora Cuevas MD Primary Care Provider Active Start: July 22, 2025 Theodora Cuevas MD Attending Provider Active St art: July 22, 2025 Visit Care Team Team Status: Active Member Role Status Dates Monica Stewart MD Attending Provider Active Sta rt: July 23, 2025 Theodora Cuevas MD Primary Care Provider Active Start: July 23, 2025 Visit Care Team Team Status: Active Member Role Status Dates Theodora Cuevas MD Primary Care Provider Active Start: July 24, 2025 Wandy Alvarez CMA Attending Provider Active Start: July 24, 2025 Visit Care Team Team Status: Inactive Member Role Status Dates Theodora Cuevas MD Primary Care Provider Active Start: July 29, 2025 End: August 01, 2025 Jesus Barbour DO Emergency Provider Active St art: July 29, 2025 End: August 01, 2025 Chasity Castro MD Admit Provider Active Start : July 29, 2025 End: August 01, 2025 Chasity Castro MD Attending Provider Active S tart: July 29, 2025 End: August 01, 2025 Visit Care Team Team Status: Active Member Role Status Dates Theodora Cuevas MD Primary Care Provider Active Start: August 03, 2025 Wandy Alvarez CMA Attending Provider Active Start: August 03, 2025 Visit Care Team Team Status: Inactive Member Role Status Dates Theodora Cuevas MD Primary Care Provider Active Start: August 05, 2025 End: August 05, 2025 Theodora Cuevas MD Attending Provider Active St art: August 05, 2025 End: August 05, 2025 Patient Care Team Team Status: Inactive Member Role Status Dates Theodora Cuevas MD Primary Care Provider Active Start: August 17, 2025 End: August 17, 2025 Lizett Jacinto APRN Attending Provider Active Start: August 17, 2025 End: August 17, 2025 Chief Complaint and Reason for Visit Chief Complaint Admit Date TBH; fall; discuss eczema May 21 10:52am UA, confusion, hallucination June 02, 2025 12:10pm R30.0 June 02, 2025 12:3 0pm Eugenio ER F/U June 04, 2025 9:49 am Amb Documentation June 10, 2025 9:18 am CHF CKD June 15, 2025 2:0 0pm Amb Documentation June 22, 2025 9: 34am Amb Documentation July 01, 2025 11 :13am Amb Documentation July 01, 2025 1: 34pm Hospital f/u-HIGH RISK July 20 1:56pm Amb Documentation July 24, 2025 8:06am sob July 29, 2025 12:56pm Amb Documentation August 03, 2025 3:29pm 2 week follow up August 05, 2025 9:32am Est ND patient for Tremor NOT NEW DX Oct quyen 2024 1:16pm Reason for Visit Admit Date Fall against object May 21, 2025 10:5 [...] (congestive heart failure) July 20, 2025 1:56pm CKD (chronic kidney disease), stage IV S eptember 2024 1:56pm Hypertension July 20, 2025 1:56pm Type 2 diabetes mellitus wit h diabetic chronic kidney disease July 20, 2025 1:56pm Type 2 diabetes mellitus wit h hyperglycemia, with long-term current use of July 20, 2025 1:56pm Vitreous hemorrhage of right eye Septemb er 2024 1:56pm Acute exacerbation of CHF (congestive he art failure) July 29, 2025 12:56pm CKD (chronic kidney disease) stage 3, GF R 30-59 ml/min July 29, 2025 12:56pm Diarrhea July 29, 2025 12:56pm IBS (irritable bowel syndrome) July 29, 2025 12:56pm Longstanding persistent atrial fibrillat ion July 29, 2025 12:56pm Oxygen dependent August 05, 2025 9:32am Tremor August 05, 2025 9:32am Vitreous hemorrhage of right eye Septemb er 2024 9:32am Acute exacerbation of CHF (congestive he art failure) August 05, 2025 9:32am CKD (chronic kidney disease) stage 3, GF R 30-59 ml/min August 05, 2025 9:32am IBS (irritable bowel syndrome) August 05, 2025 9:32am Longstanding persistent atrial fibrillat ion August 05, 2025 9:32am Reason for Referral Referring Provider Name Referring Provider Address Referring Provider Phone Referral Date Requested Appointment Date Referral Reason Chasity Castro [address] [place] [address] Work Phone: in 2 w for ckd Chasity Castro [address] [place] [address] Work Phone: Previously scheduled appointment. Theodora Cuevas [address] [place] [address] Work Phone: August 05, 2025 R25.1 - Tremor, unspecified in 2 w for ckd Previously scheduled appointment. July R25.1 - Tremor, unspecified Health Concerns Concerns A [facility] screening has identified you as FRAIL or AT RISK FOR FRAILTY. This puts you at a higher risk for infection, illness, falls, and other injuries. Here are four ways to help you reduce your risk of frailty: 1. IDENTIFY EARLY SIGNS OF FRAILTY Discuss contributing factors and concerns with your doctor 2. BE ACTIVE Walking and light strengthening exercises will help reduce weakness 3. EAT WELL Aim for three healthy meals a day that are high in protein 4. THINK POSITIVE Keep your mind active by being sociable and continuing to learn References: Stay Strong: Four Ways to Beat the Frailty Risk [email or web address] Allergies, Adverse Reactions, Alerts Allergen Type Severity Reaction Last Updated Verified Status Iodinated Contrast Media Allergy Unknown Rash August 17, 2025 1:23pm Yes Active shellfish derived Allergy Unknown Rash August 17, 2025 1:23pm Yes Active Sulfa (Sulfonamide Antibiotics) Allergy Unknown Rash August 17, 2025 1:23pm Yes Active sulfacetamide Allergy Unknown diarrhea August 1:23pm Yes Active gabapentin Adverse Reaction Unknown Diarrhea August 17, 2025 1:23pm Yes Active Social History Smoking Status Status Start Date End Date Date of Observa tion Ex-smoker (finding) Meri bruce 2024 3:53pm Observation Status Observation Response Date of Response Legal Sex Female (finding) Sex Assigned At Female 1945 Social History Assessments Assessment Value Date Recorded SDUT Follow up July 30, 2025 12:33pm Question Answer Date Recorded Has the SDOH screening changed since admission? N July 30, 2025 12:33pm Family History Relationship Condition Age at Onset [...] spinal surgery Unknown Active COVID-19 Unknown Active alf (current) use of insulin Unknown Active Type 2 diabetes mellitus with diabetic chronic k idney disease Unknown Active Benign essential tremor Unknown Active Acute respiratory failure with hypoxia Unknown Active Chalazion of right eye Unknown Active Immunization due Unknown Active Hordeolum externum (stye) Unknown Active Secondary hyperparathyroidism Unknown Ac tive Urinary incontinence Unknown Active Diabetes mellitus Unknown Active Dietary counseling and surveillance Unknown Active CKD (chronic kidney disease), stage IV Unknown Active Coronary artery disease Unknown Active CHF (congestive heart failure) Unknown A ctive Anxiety Unknown Active A-fib Unknown Active Bradycardia Unknown Active Hypertensive chronic kidney disease with stage 1 through stage 4 chronic kidney disease, or unspecified chronic kidney disease Unknown Active Confusion Unknown Active Mass of right axilla Unknown Active Dyspepsia Unknown Active Dyspnea Unknown Active Dysuria Unknown Active Hallucination Unknown Active Hyperglycemia Unknown Active Hyperlipidemia Unknown Active Hypothyroidism Unknown Active Lactose intolerance Unknown Active Lymph edema Unknown Active Fall against object Unknown Active Oxygen dependent Unknown Active Diabetes mellitus with hyperglycemia Unknown Active Osteoarthritis Unknown Active Near syncope Unknown Active Lumbar degenerative disc disease Unknown Active Tremor Unknown Active Bloated abdomen Unknown Active Type 2 diabetes mellitus wit h hyperglycemia, with long-term current use of insulin Unknown Active Obstructive uropathy Unknown Active Memory changes Unknown Active Thrush of mouth and esophagus Unknown Ac tive Stress incontinence of urine Unknown Act chiqui Cervical disc disease Unknown Active Vitreous hemorrhage of right eye Unknown Active GERD (gastroesophageal reflux disease) Unknown Active Acute on chronic diastolic CHF (congestive heart failure) Unknown Active Hypertension Unknown Active Macular degeneration Unknown Active Pharyngitis Unknown Active Lumbar spondylosis Unknown Active Abdominal swelling, generalized Unknown Active Contact dermatitis Unknown Active Hypokalemia Unknown Active Hypomagnesemia Unknown Active Inactive/Resolved Problems Medical Problem Onset Date Status Acute exacerbation of CHF (congestive heart fail ure) Unknown Resolved Elevated blood pressure reading Unknown Resolved Dizziness Unknown Resolved CKD (chronic kidney disease) stage 3, GFR 30-59 ml/min Unknown Resolved Delirium Unknown Resolved Diarrhea Unknown Resolved Dysuria Unknown Resolved Longstanding persistent atrial fibrillation Unkn own Resolved Acute kidney injury superimposed on CKD Unknown Resolved AV junctional bradycardia Unknown Resolv ed Acute UTI Unknown Resolved IBS (irritable bowel syndrome) Unknown R esolved Acute hyperkalemia Unknown Resolved Medications Medication Status [...] tablet Discont inued 0 .ROUTE .COMPLEX 270 February 19, 2024 [...] MG PO Daily 2023 12:00a m Decem 2023 3:27p m Metoprolol Tartrate 100 mg [...] EVERY 14 days * Flash Glucose Scanning [place] (Freestyle Familia 2 [place]) [facility] Active 0 .Route 1 Octobe r 2023 [...] Daily as needed for pain 30 30 Decemb er 2023 ry 2024 4:39p m Flash Glucose Sensor (Freestyle Familia 2 Sensor) kit Discont inued 0 .ROUTE .COMPLEX 1 Decemb er 2023 4:09pm Febru chele 2024 2:15p m USE DIRECTED to test BLOOD SUGAR DAILY *change EVERY 14 days * Oxycodone-A cetaminophe n 5-325 mg tablet Discont inued 1 TAB PO Daily as needed for pain 30 Novuar y 2024 chele2024 11:57 am Oxycodone-A cetaminophe n 5-325 mg tablet Discont inued 1 TAB PO Daily as needed for pain 30 Februa ry 2024February 09, 2025 2:13p m Flash Glucose Sensor (Freestyle Familia 2 Sensor) kit Discont inued 0 .ROUTE .COMPLEX 1 2024 2:15pm February 18, 2025 8:30a m USE DIRECTED to test BLOOD SUGAR DAILY *change EVERY 14 days * Insulin Glargine (Basaglar Kwikpen U-100 Insulin) 100 unit/mL (3 mL) insulin pen Discont inued 15 UNIT SUBCUT Every evening 15 2024 11:58a m February 19, 2025 9:09a [...] tablet Discont inued 0 .ROUTE .COMPLEX 30 2024 3:13pm February 09, 2025 2:57p m TAKE 1 TABLET BY MOUTH AT BEDTIME Buspirone 5 mg tablet Discont inued 0 .ROUTE .COMPLEX 60 February 09, 2025 [...] kit Discont inued 0 .ROUTE .COMPLEX 1 February 18, 2025 8:30am April 20, 2025 [...] with drug therapy Buspirone 5 mg tablet Discont inued 0 .ROUTE .COMPLEX March 05, 2025 9:38am May 29, 2025 8:58a m TAKE 1 TABLET BY MOUTH TWICE DAILY Propranolol 40 mg tablet Discont inued 0 .ROUTE .COMPLEX March 05, 2025 9:38am May 29, 2025 8:58a m TAKE 1 TABLET BY MOUTH TWICE DAILY Famotidine 20 mg tablet Discont inued 0 .ROUTE .COMPLEX March 05, 2025 9:38am May 21, 2025 11:25 am TAKE 1 TABLET BY MOUTH AT BEDTIME Levothyroxi ne 125 mcg tablet Discont inued 0 .ROUTE .COMPLEX March 05, 2025 9:38am [facility] 4:33p m TAKE 1 TABLET BY MOUTH DAILY Flash Glucose Sensor (Freestyle Familia 2 Sensor) kit Discont inued 0 .ROUTE .COMPLEX April 20, 2025 9:51am May 29, 2025 8:58a m USE DIRECTED to test BLOOD SUGAR DAILY *change EVERY 14 days * Propranolol 40 mg tablet Discont inued 0 .ROUTE .COMPLEX May 29, 2025 8:57am June 04, 2025 10:20 am TAKE 1 TABLET BY MOUTH TWICE DAILY Flash Glucose Sensor (Freestyle Familia 2 Sensor) kit Discont inued 0 .ROUTE .COMPLEX May 29, 2025 8:57am [facility] 2024 3:13p m USE DIRECTED to test BLOOD SUGAR DAILY *change EVERY 14 days * Buspirone 5 mg tablet Active 0 .ROUTE .COMPLEX May 29, 2025 8:57am TAKE 1 TABLET BY MOUTH TWICE DAILY Complies with drug therapy Insulin Glargine 100 unit/mL (3 mL) insulin pen Discont inued 20 UNIT SUBCUT Every evening June 22, 2025 12:10p m [facility]2024 3:42p m Levothyroxi ne 125 mcg tablet Active 0 .ROUTE .COMPLEX 90 2024 4:33pm TAKE 1 TABLET BY MOUTH DAILY Complies with drug therapy Portable Oxygen Discont inued 0 .Route .MEDSUPPLY 2024 12:00a m [facility] 2024 11:16 am Use continuously Portable Oxygen Concentrato r Active 0 .Route .MEDSUPPLY 1 2024 11:15a m Use continuously; portable oxygen concentrator Venlafaxine 37.5 mg capsule,ext ended release 24hr Discont inued 37.5 MG PO Daily June 11, 2021 12:00a m January 17, 2024 5:18p m Atorvastati n 20 mg tablet Discont inued 20 MG PO Daily June 11, 2021 12:00a m June 10, 2025 9:26a m Lisinopril 20 mg tablet Discont inued 20 [...] daily with meals 60 June 12, 2021 12:00a m January 17, 2024 5:18p m Insulin Aspart U-100 (Novolog Flexpen U-100 Insulin) 100 unit/mL (3 mL) Insulin Pen Discont inued 1 UNIT SUBCUT Three times daily 15 June 12, 2021 12:00a m January 15, [...] Discont inued 100 MG PO Daily 7 7 June 12, 2021 12:00a m January [...] Daily 30 30 Decemb er 2023 1:00am [facility] vanessa 2023 3:11p m further refills or dose adjustment per Nephrology. Sodium Chloride (Nasal Snyder (Sodium Chloride)) 0.65 % aerosol,spr ay Discont inued 1 SPRAY INTRAN BOSSMAN Twice daily as needed for nasal congestion 44 5 [facility] er 2023 1:00am [facility] vanessa 2023 12:41 pm Albuterol Sulfate 90 mcg/actuati on HFA aerosol inhaler Discont inued 2 INH INHALA TION Q6H as needed for shortness of breath or wheezing 8 5 Dece er 2023 1:00am [facility] vanessa 2023 12:41 pm administer with spacer Cephalexin 500 mg capsule Discont inued 500 MG PO Twice daily 14 7 March 12, 2025 12:00a m March 24, 2025 2:26p m Cephalexin 500 mg capsule Discont inued 500 MG PO Twice daily 14 7 [facility] er 2023 1:00am [facility] vanessa 2023 12:41 pm Triamcinolo ne Acetonide 0.1 % cream Active 1 APPLIC TOPICA L Twice daily as needed for rash 2024 12:00a m Complies with drug therapy Insulin Glargine 100 unit/mL (3 mL) insulin pen Active 6 UNIT SUBCUT Every evening 2024 12:00a m On Hold: until seen by pcp Complies with drug therapy Bumetanide 1 mg tablet Active 1 MG PO Twice daily 60 2024 12:00a m Complies with drug therapy Amlodipine 5 mg tablet Active 10 MG PO Daily 90 2024 11:20a m Complies with drug therapy Rivaroxaban 15 mg tablet Active 15 MG PO Daily 30 2024 11:20a m must administer with evening meal Complies with drug therapy Dapaglifloz in Propanediol (Farxiga) 10 mg tablet [...] 400 mg/dl 14 unit Dapaglifloz in Propanediol (Farxiga) 10 mg tablet [...] as needed for pain July 07, 2024 Septe mber 2023 10:19 am Nystatin-Tr iamcinolone 100,000-0.1 unit/g-% cream Discont inued 1 APPLIC TOPICA L Twice daily July 07, 2024 12:00a m Decem vanessa 2023 12:41 pm Levothyroxi ne 125 mcg tablet Discont inued 0 .ROUTE .COMPLEX July 07, 2024 12:54p m Novem vanessa [...] 2 Sensor) kit Discont inued 0 .Route 1 May 07, 2024 12:00a m Septe mber 2023 11:19 am As directed Biotin 10,000 mcg capsule Discont inued 69194 MCG PO daily June 05, 2024 12:00a m Decem vanessa 2023 12:41 pm Bifidobacte rium Infantis (Align (B.Infantis )) 4 mg capsule Discont inued 4 MG PO Daily June 05, 2024 12:00a m Decem vanessa 2023 12:41 pm Insulin Glargine (Basaglar [...] PO Daily June 05, 2024 12:00a m [facility]2023 10:38 am Flash Glucose Scanning [place] (Freestyle Familia 2 [place]) misc Discont inued 0 .Route 2023 12:00a m Octob er 2023 8:13a m As directed Omeprazole 40 mg capsule,del ayed release(DR/ EC) Discont inued 40 MG PO Daily 2024 1:00am Febr2024 3:14p m Famotidine 20 mg tablet Discont inued 20 MG PO Daily at bedtime 2024 2:56pm Febr2024 3:14p m Duloxetine (Cymbalta) 20 mg capsule,del ayed release(DR/ EC) Discont inued 20 MG PO Daily 2024 1:00am Febru chele2024 3:14p m Buspirone 5 mg tablet Discont [...] 6 hours as needed for diarrhea 08 06February 09, 2025 2:48pm March 24, 2025 2:27p m Duloxetine 20 mg capsule,del ayed release(DR/ EC) Discont inued 0 .ROUTE .COMPLEX February [...] inued 40 MG PO Twice daily 60 February 09, 2025 2:56pm March 05, 2025 9:39a m Insulin Glargine (Basaglar Kwikpen U-100 Insulin) 100 unit/mL (3 mL) insulin pen Discont inued 30 UNIT SUBCUT Every evening April 16, 2025 10:45a m June 10, 2025 9:25a m Triamcinolo ne Acetonide 0.5 % cream Discont inued 1 APPLIC TOPICA L Twice daily as needed for itching April 16, 2025 12:00a m May 21, 2025 11:27 am Famotidine 20 mg tablet Discont inued 0 .ROUTE .COMPLEX May 21, 2025 11:25a m [facility] 2024 11:22 am TAKE 1 TABLET BY MOUTH AT BEDTIME Triamcinolo ne Acetonide 0.5 % cream Discont inued 1 APPLIC TOPICA L Twice daily as needed for itching May 21, 2025 11:27a m June 10, 2025 9:25a m Amlodipine 5 mg tablet Discont inued 5 MG PO Daily June 10, 2025 12:00a m [facility] 2024 3:13p m Metoprolol Tartrate 25 mg tablet Active 25 MG PO Twice daily June 10, 2025 12:00a m Complies with drug therapy Duloxetine 20 mg capsule,del ayed release(DR/ EC) Active 20 MG PO Once June 10, 2025 12:00a m Complies with drug therapy Insulin Glargine 100 unit/mL (3 mL) insulin pen Discont inued 20 UNIT SUBCUT Every evening June 10, 2025 12:00a m [facility] 2024 12:10 pm Oxycodone-A cetaminophe n 5-325 mg tablet [...] January 17, 2024 1:00am 2024 2:57p m [place] 3-Dha-Epa-F jairo Oil (Fish Oil) 1,000 mg [...] needed June 05, 2024 12:06p m [facility] 2023 10:36 am Ketoconazol e 2 % [...] am Pen Needle, Diabetic (Comfort Ez Pen [place]) 33 gauge x 5/32 needle Active 0 [...] daily 60 Septem vanessa 2023 12:00a m Decem vanessa 2023 12:41 pm Levothyroxi ne 112 mcg capsule Discont inued 112 MCG PO Daily [facility] er 2023 1:00am February 09, 2025 8:15a m Alprazolam 0.25 mg tablet Discont inued 0.25 MG PO Twice daily [facility] er 2023 1:00am [facility] vanessa 2023 11:38 am Furosemide 40 mg tablet Discont inued 40 MG PO Every 48 hours 15 [facility] er 2023 3:11pm February 19, 2025 9:09a m further refills or dose adjustment per Nephrology. Nystatin 100,000 unit/gram powder Discont inued TOPICA L February 19, 2025 12:00a m March 12, 2025 3:58p m Alprazolam 0.25 mg tablet Active 0.25 MG PO Three times daily as needed for anxiety February 19, 2025 12:00a m Complies with drug therapy Biotin 10,000 mcg capsule Discont inued 75503 MCG PO February 19, 2025 12:00a m March 12, 2025 3:57p m Cholecalcif scar (Vitamin D3) 125 mcg (5,000 unit) capsule Active 125 MCG PO Daily February 19, 2025 12:00a m Complies with drug therapy Diltiazem Hcl 120 mg tablet extended release 24 hr Discont inued 120 MG PO Daily February 19, 2025 12:00a m June 04, 2025 10:19 am Duloxetine 20 mg capsule,del ayed release(DR/ EC) Discont inued 20 MG PO Daily February 19, 2025 9:05am April 21, 2025 2:19p m Famotidine 20 mg tablet Discont inued 20 MG PO Daily at bedtime February 19, 2025 9:06am March 05, 2025 9:39a m Insulin Glargine (Basaglar [place]pen U-100 Insulin) 100 unit/mL (3 mL) insulin [...] 9:39a m Rivaroxaban (Xarelto) 20 mg tablet Discont inued 20 MG PO Daily February 19, 2025 12:00a m [facility] 2024 11:20 am must administer with evening meal Furosemide (Lasix) 40 mg tablet Discont inued 40 MG PO Daily February 19, 2025 12:00a m [facility] 2024 1:37p m Furosemide (Lasix) 40 mg tablet Discont inued 40 MG PO Twice daily July 01, 2025 1:37pm [facility] 2024 3:13p m Ketoconazol e 2 % shampoo Discont inued [...] 2025 2:53p m Bumetanide 1 mg tablet Discont inued 1 MG PO Twice daily April 21, 2025 12:00a m June 10, 2025 9:26a m Omeprazole 40 mg capsule,del ayed release(DR/ EC) Active 40 MG PO Daily April 21, 2025 2:18pm Complies with drug therapy Diphenoxyla te-Atropine 2.5-0.025 mg tablet Active 1 TAB PO Every 6 hours as needed for diarrhea 08 06March 24, 2025 2:26pm Complies with drug therapy Nitrofurant oin Macrocrysta l 100 mg capsule Discont inued 100 MG PO Twice daily March 24, 2025 12:00a m April 21, 2025 2:19p m must administer with a meal/food Potassium Chloride 20 mEq tablet extended release Discont inued 20 MEQ PO daily July 01, 2025 12:00a m [facility] 2024 11:22 am Amlodipine 5 mg tablet Discont inued 5 MG PO Daily 90 2024 3:11pm [facility] 2024 11:20 am Flash Glucose Sensor (Freestyle Familia 2 Sensor) kit Active 0 .ROUTE .COMPLEX 1 2024 3:11pm USE DIRECTED to test BLOOD SUGAR DAILY *change EVERY 14 days * Furosemide (Lasix) 40 mg tablet Discont inued 40 MG PO Twice daily 180 2024 3:12pm [facility]2024 11:22 am Triamcinolo ne Acetonide 0.1 % cream Discont inued 1 APPLIC TOPICA L Twice daily 30 2024 12:00a m [facility] 2024 3:42p m Neomycin-Ba citracin-Po ly-Hc 3.5-400-10, 000 mg-unit/g-1 % ointment Active 1 APPLIC EYE-[facility] TH Three times daily 3.5 2024 12:00a m Complies with drug therapy Immunizations Immunization Event Date Not Given Reason Dose Number [employer] Lot Number Vaccine Information Statement (VIS) Detail Administration Location COVID-19 Deny Aguirre ([facility]) January 21, 2021 COVID-19 mRNADeny ([facility]) February 04, 2021 Fluzone TIV High-Dose 65YR+ October 17, 2024 Patient Refused [facility] influenza, unspecified formulation October 09, 2018 influenza, unspecified formulation September 04, 2023 Pneumococcal Conjugate Vaccine, 20 valent January 18, 2024 [id number] [facility] Procedures Procedure Date Performed Status Urine Culture June 02, 2025 completed XR chest 2V* July 29, 2025 10:23am com pleted XR chest 2V* July 31, 2025 2:41pm comp leted Anaerobe Identification Only June 08, 2025 com pleted Relevant Diagnostic Tests and/or Laboratory Data Laboratory Results Test Collection Date/Time Result Date/Time Result Interpretation Reference Range Result Comment Performing Site B-Type Natriure tic Peptide May 28, 2025 4:45am May 28, 2025 4:45am 6395.0 pg/mL Above upper panic limits <=1800.0 RESULTS CALLED TO ROSA DUKE RN @BY Alla Kunz 0524 Troponin I High Sensitiv ity May 28, 2025 4:45am May 28, 2025 4:45am 18.7 pg/mL 4.0-51.3 CUT-OFF POINTS HAVE BEEN ESTABLISHED BASED ON THE FOURTHUNIVE RSAL DEFINITION OF MYOCARDIAL INFARCTION. THE UPPERREFERE NCE LIMIT (URL) OF TROPONIN, DEFINED THE 99THPERCENT ILE OF cTnI DISTRIBUTIO N IN A REFERENCE POPULATION, HAS BEEN CONFIRMED THE DECISION THRESHOLD FOR MIDIAGNOSIS .99TH PERCENTILE = 51.4 PG/MLNOTE: HIGH-SENSIT IVITY TROPONIN ASSAY IS NOT INTENDED TO BEUSED IN ISOLATION BUT SHOULD BE INTERPRETED IN CONJUNCTION WITH OTHER DIAGNOSTIC AND CLINICAL INFORMATION . Anion Gap May 28, 2025 4:45am May 28, 2025 4:45am 10.8 Basophil s # (Auto) May 28, 2025 4:45am May 28, 2025 4:45am 0.1 10 3/uL 0.0-0.1 Urine Culture Reflexed May 28, 2025 6:08am NO Magnesiu m Level May 29, 2025 5:24am May 29, 2025 5:24am 1.2 mg/dL Below low normal 1.8-2.4 Anion Gap May 29, 2025 5:24am May 29, 2025 5:24am 13.4 Absolute Basophil s (Manual) May 29, 2025 5:24am May 29, 2025 5:24am 0.00 10 3/uL 0.00-0.10 Hematocr it May 29, 2025 5:24am 32.2 % Below low normal 36.0-48.0 Estimate d Average Glucose May 29, 2025 5:24am May 29, 2025 5:24am 209 mg/dL Hematocr it May 30, 2025 6:40am May 30, 2025 6:40am 32.9 % Below low normal 36.0-48.0 Anion Gap May 30, 2025 6:40am May 30, 2025 6:40am 13.5 Magnesiu m Level May 30, 2025 6:40am May 30, 2025 6:40am 1.8 mg/dL 1.8-2.4 Anion Gap May 31, 2025 5:50am May 31, 2025 5:50am 13.6 B-Type Natriure tic Peptide June 08, 2025 3:09pm June 08, 2025 3:09pm 96882.0 pg/mL Above upper panic limits <=1800.0 RESULTS CALLED TO ANNALISE RANGEL RN at 1603 Troponin I High Sensitiv ity June 08, 2025 3:09pm June 08, 2025 3:09pm 26.7 pg/mL 4.0-51.3 CUT-OFF POINTS HAVE BEEN ESTABLISHED BASED ON THE FOURTHUNIVE RSAL DEFINITION OF MYOCARDIAL INFARCTION. THE UPPERREFERE NCE LIMIT (URL) OF TROPONIN, DEFINED THE 99THPERCENT ILE OF cTnI DISTRIBUTIO N IN A REFERENCE POPULATION, HAS BEEN CONFIRMED THE DECISION THRESHOLD FOR MIDIAGNOSIS .99TH PERCENTILE = 51.4 PG/MLNOTE: HIGH-SENSIT IVITY TROPONIN ASSAY IS NOT INTENDED TO BEUSED IN ISOLATION BUT SHOULD BE INTERPRETED IN CONJUNCTION WITH OTHER DIAGNOSTIC AND CLINICAL INFORMATION . Anion Gap June 08, 2025 3:09pm June 08, 2025 3:09pm 11.7 Lactic Acid Level June 08, 2025 3:09pm June 08, 2025 3:09pm 0.7 mmol/L 0.4-2.0 Basophil s # (Auto) June 08, 2025 3:09pm June 08, 2025 3:09pm 0.1 10 3/uL 0.0-0.1 SARS-CoV -2 Ag (CV2AG) June 08, 2025 3:20pm June 08, 2025 3:20pm NEGATIVE NEGATIVE This test has not been FDA cleared or approved, but has beenauthori zed by the FDA under an Emergency Use Authorizati on(EUA) for use by authorized laboratorie s certified underIA that meet the requirement s to perform moderate or highcomplex ity testing. This test has been authorized only forthe detection of proteins from SARS-CoV-2, not for any otherviruse s or pathogens. The emergency use of this test isauthorize d for the duration of the declaration thatcircums tances exist justifying the authorizati on ofemergency use of in vitro diagnostic tests for detectionan d/or diagnosis of Covid-19 under section 564(b)(1) of theAct, 21 U.S.C. 360bbb-3(b) (1), unless the declaration isterminate d or authorizati on is revoked sooner. Urine Other Casts June 08, 2025 4:00pm SEEN #/LPF Abnormal (applies to non-numeric results) NONE SEEN Magnesiu m Level June 09, 2025 5:05am June 09, 2025 5:05am 1.3 mg/dL Below low normal 1.8-2.4 Phosphor us Level June 09, 2025 5:05am June 09, 2025 5:05am 3.8 mg/dL 2.6-4.7 Anion Gap June 09, 2025 5:05am June 09, 2025 5:05am 12.9 Basophil s # (Auto) June 09, 2025 5:05am June 09, 2025 5:05am 0.1 10 3/uL 0.0-0.1 Magnesiu m Level June 10, 2025 5:03am June 10, 2025 5:03am 2.0 mg/dL 1.8-2.4 Phosphor us Level June 10, 2025 5:03am June 10, 2025 5:03am 4.4 mg/dL 2.6-4.7 Anion Gap June 10, 2025 5:03am June 10, 2025 5:03am 10.8 Basophil s # (Auto) June 10, 2025 5:03am June 10, 2025 5:03am 0.1 10 3/uL 0.0-0.1 B-Type Natriure tic Peptide June 19, 2025 5:18am June 19, 2025 5:18am 9659.0 pg/mL Above upper panic limits <=1800.0 RESULTS CALLED TO RENETTA Amaral RN @BY Andrea Long MLT at 0557 Troponin I High Sensitiv ity June 19, 2025 5:18am June 19, 2025 5:18am 29.7 pg/mL 4.0-51.3 CUT-OFF POINTS HAVE BEEN ESTABLISHED BASED ON THE FOURTHIVE RSA DEFINITION OF MYOCARDIAL INFARCTION. THE UPPERREFERE NCE LIMIT (URL) OF TROPONIN, DEFINED THE 99THPERCENT ILE OF cTnI DISTRIBUTIO N IN A REFERENCE POPULATION, HAS BEEN CONFIRMED THE DECISION THRESHOLD FOR MIDIAGNOSIS .99TH PERCENTILE = 51.4 PG/MLNOTE: HIGH-SENSIT IVITY TROPONIN ASSAY IS NOT INTENDED TO BEUSED IN ISOLATION BUT SHOULD BE INTERPRETED IN CONJUNCTION WITH OTHER DIAGNOSTIC AND CLINICAL INFORMATION . Magnesiu m Level June 19, 2025 5:18am June 19, 2025 5:18am 1.5 mg/dL Below low normal 1.8-2.4 Anion Gap June 19, 2025 5:18am June 19, 2025 5:18am 8.9 Hematocr it June 19, 2025 5:18am June 19, 2025 5:18am 33.5 % Below low normal 36.0-48.0 B-Type Natriure tic Peptide June 28, 2025 1:48pm June 28, 2025 1:48pm 7158.0 pg/mL Above upper panic limits <=1800.[address] DURHAM Troponin I High Sensitiv ity June 28, 2025 1:48pm June 28, 2025 1:48pm 22.6 pg/mL 4.0-51.3 CUT-OFF POINTS HAVE BEEN ESTABLISHED BASED ON THE FOURTHUNIVE RSAL DEFINITION OF MYOCARDIAL INFARCTION. THE UPPERREFERE NCE LIMIT (URL) OF TROPONIN, DEFINED THE 99THPERCENT ILE OF cTnI DISTRIBUTIO N IN A REFERENCE POPULATION, HAS BEEN CONFIRMED THE DECISION THRESHOLD FOR MIDIAGNOSIS .99TH PERCENTILE = 51.4 PG/MLNOTE: HIGH-SENSIT IVITY TROPONIN ASSAY IS NOT INTENDED TO BEUSED IN ISOLATION BUT SHOULD BE INTERPRETED IN CONJUNCTION WITH OTHER DIAGNOSTIC AND CLINICAL INFORMATION . Anion Gap June 28, 2025 1:48pm June 28, 2025 1:48pm 10.5 Basophil s # (Auto) June 28, 2025 1:49pm June 28, 2025 1:49pm 0.1 10 3/uL 0.0-0.1 Urine Culture Reflexed June 28, 2025 3:05pm NO B-Type Natriure tic Peptide June 29, 2025 5:42am June 29, 2025 5:42am 7998.0 pg/mL Above upper panic limits <=1800.0 RESULTS CALLED TO NEDRA PEÑA RN @BY Alla Kunz 0631 Anion Gap June 29, 2025 5:42am June 29, 2025 5:42am 7.0 Basophil s # (Auto) June 29, 2025 5:54am June 29, 2025 5:54am 0.1 10 3/uL 0.0-0.1 Anion Gap June 30, 2025 5:15am June 30, 2025 5:15am 8.3 Anion Gap July 01, 2025 5:46am July 01, 2025 5:46am 8.9 B-Type Natriure tic Peptide July 22, 2025 5:55am July 22, 2025 5:55am 7408.0 pg/mL Above upper panic limits <=1800.0 RESULTS CALLED TO Beckie Henderson Troponin I High Sensitiv ity July 22, 2025 5:55am July 22, 2025 5:55am 19.6 pg/mL 4.0-51.3 CUT-OFF POINTS HAVE BEEN ESTABLISHED BASED ON THE FOURTHUNIVE RSAL DEFINITION OF MYOCARDIAL INFARCTION. THE UPPERREFERE NCE LIMIT (URL) OF TROPONIN, DEFINED THE 99THPERCENT ILE OF cTnI DISTRIBUTIO N IN A REFERENCE POPULATION, HAS BEEN CONFIRMED THE DECISION THRESHOLD FOR MIDIAGNOSIS .99TH PERCENTILE = 51.4 PG/MLNOTE: HIGH-SENSIT IVITY TROPONIN ASSAY IS NOT INTENDED TO BEUSED IN ISOLATION BUT SHOULD BE INTERPRETED IN CONJUNCTION WITH OTHER DIAGNOSTIC AND CLINICAL INFORMATION . Anion Gap July 22, 2025 5:55am 12.7 Basophil s # (Auto) July 22, 2025 5:55am July 22, 2025 5:55am 0.1 10 3/uL 0.0-0.1 Renin Activity July 23, 2025 7:58am July 23, 2025 7:58am 0.242 ng/mL/hr 0.167-5.38 0 This test was developed and its performance characteris ticsdetermi fabiana by [facility]. It has not been cleared orapproved by the Food and Drug Administrat ion.Perform ed at: [address] [id number] Director: Ammy Valdez MD, Phone: [phone] [place] one July 23, 2025 7:58am July 23, 2025 7:58am 2.6 ng/dL 0.0-30.0 This test was developed and its performance characteris ticsdetermi fabiana by [facility]. It has not been cleared orapproved by the Food and Drug Administrat ion.Perform ed at: [address] [id number] Director: Ammy Valdez MD, Phone: [phone] Plasma Normetan ephrine July 23, 2025 7:58am July 23, 2025 7:58am 70.7 pg/mL 0.0-285.2 This test was developed and its performance characteris ticsdetermi fabiana by [facility]. It has not been cleared orapproved by the Food and Drug Administrat ion. Anion Gap July 23, 2025 7:58am July 23, 2025 7:58am 11.9 BUN/Crea tinine Ratio May 28, 2025 4:45am May 28, 2025 4:45am 32.4 Basophil s (%) (Auto) May 28, 2025 4:45am May 28, 2025 4:45am 1.3 % 0.2-2.0 Urine Other Casts May 28, 2025 6:08am SEEN #/LPF Abnormal (applies to non-numeric results) NONE SEEN BUN/Crea tinine Ratio May 29, 2025 5:24am May 29, 2025 5:24am 27.5 Basophil s % May 29, 2025 5:24am May 29, 2025 5:24am 0.0 % Below low normal 0.2-2.0 Hemoglob in May 29, 2025 5:24am 10.6 g/dL Below low normal 12.0-16.0 Hemoglob in A1c May 29, 2025 5:24am May 29, 2025 5:24am 8.9 % Above high normal 4.5-6.2 ADA RECOMMENDED LIMIT 4.0 - 6.0ADA THERAPEUTIC TARGET < 7.0ACTION SUGGESTED> 7.0 Hemoglob in May 30, 2025 6:40am May 30, 2025 6:40am 10.6 g/dL Below low normal 12.0-16.0 BUN/Crea tinine Ratio May 30, 2025 6:40am May 30, 2025 6:40am 26.4 BUN/Crea tinine Ratio May 31, 2025 5:50am May 31, 2025 5:50am 31.3 BUN/Crea tinine Ratio June 08, 2025 3:09pm June 08, 2025 3:09pm 17.8 Basophil s (%) (Auto) June 08, 2025 3:09pm June 08, 2025 3:09pm 1.2 % 0.2-2.0 Urine Other Crystals June 08, 2025 4:00pm None Seen #/HPF None Seen Albumin/ Globulin Ratio June 09, 2025 5:05am June 09, 2025 5:05am 0.3 Basophil s (%) (Auto) June 09, 2025 5:05am June 09, 2025 5:05am 1.1 % 0.2-2.0 Albumin/ Globulin Ratio June 10, 2025 5:03am June 10, 2025 5:03am 0.4 Basophil s (%) (Auto) June 10, 2025 5:03am June 10, 2025 5:03am 1.1 % 0.2-2.0 BUN/Crea tinine Ratio June 19, 2025 5:18am June 19, 2025 5:18am 17.7 Hemoglob in June 19, 2025 5:18am June 19, 2025 5:18am 11.0 g/dL Below low normal 12.0-16.0 Albumin/ Globulin Ratio June 28, 2025 1:48pm June 28, 2025 1:48pm 0.4 Basophil s (%) (Auto) June 28, 2025 1:49pm June 28, 2025 1:49pm 1.2 % 0.2-2.0 Urine Other Casts June 28, 2025 3:05pm SEEN #/LPF Abnormal (applies to non-numeric results) NONE SEEN Albumin/ Globulin Ratio June 29, 2025 5:42am June 29, 2025 5:42am 0.5 Basophil s (%) (Auto) June 29, 2025 5:54am June 29, 2025 5:54am 1.6 % 0.2-2.0 BUN/Crea tinine Ratio June 30, 2025 5:15am June 30, 2025 5:15am 19.5 BUN/Crea tinine Ratio July 01, 2025 5:46am July 01, 2025 5:46am 18.5 Albumin/ Globulin Ratio July 22, 2025 5:55am 0.4 Basophil s (%) (Auto) July 22, 2025 5:55am July 22, 2025 5:55am 1.0 % 0.2-2.0 Plasma Total Metaneph rines July 23, 2025 7:58am July 23, 2025 7:58am <25.0 pg/mL 0.0-88.0 This test was developed and its performance characteris ticsdetermi fabiana by [facility]. It has not been cleared orapproved by the Food and Drug Administrat ion.Perform ed at: - [facility] [id number] Director: Ammy Valdez MD, Phone: [phone] BUN/Crea tinine Ratio July 23, 2025 7:58am July 23, 2025 7:58am 25.0 Blood Urea Nitrogen May 28, 2025 4:45am May 28, 2025 4:45am 48.0 mg/dL Above high normal 7.0-18.0 Eosinoph ils # (Auto) May 28, 2025 4:45am May 28, 2025 4:45am 0.2 10 3/uL 0.0-0.7 Urine Other Crystals May 28, 2025 6:08am Seen #/HPF Abnormal (applies to non-numeric results) None Seen Blood Urea Nitrogen May 29, 2025 5:24am May 29, 2025 5:24am 42.0 mg/dL Above high normal 7.0-18.0 Eosinoph ils # (Manual) May 29, 2025 5:24am May 29, 2025 5:24am 0.00 10 3/uL 0.00-0.70 Mean Corpuscu lar Hemoglob in May 29, 2025 5:24am 29.9 pg 26.7-34.0 Mean Corpuscu lar Hemoglob in May 30, 2025 6:40am May 30, 2025 6:40am 29.7 pg 26.7-34.0 Blood Urea Nitrogen May 30, 2025 6:40am May 30, 2025 6:40am 47.0 mg/dL Above high normal 7.0-18.0 Blood Urea Nitrogen May 31, 2025 5:50am May 31, 2025 5:50am 50.0 mg/dL Above high normal 7.0-18.0 Blood Urea Nitrogen June 08, 2025 3:09pm June 08, 2025 3:09pm 30.0 mg/dL Above high normal 7.0-18.0 Eosinoph ils # (Auto) June 08, 2025 3:09pm June 08, 2025 3:09pm 0.2 10 3/uL 0.0-0.7 Urine Bacteria June 08, 2025 4:00pm TRACE #/HPF Abnormal (applies to non-numeric results) NONE SEEN Albumin June 09, 2025 5:05am June 09, 2025 5:05am 1.7 g/dL Below low normal 3.4-5.0 Eosinoph ils # (Auto) June 09, 2025 5:05am June 09, 2025 5:05am 0.2 10 3/uL 0.0-0.7 Albumin June 10, 2025 5:03am June 10, 2025 5:03am 1.7 g/dL Below low normal 3.4-5.0 Eosinoph ils # (Auto) June 10, 2025 5:03am June 10, 2025 5:03am 0.2 10 3/uL 0.0-0.7 Blood Urea Nitrogen June 19, 2025 5:18am June 19, 2025 5:18am 32.0 mg/dL Above high normal 7.0-18.0 Mean Corpuscu lar Hemoglob in June 19, 2025 5:18am June 19, 2025 5:18am 30.1 pg 26.7-34.0 Albumin June 28, 2025 1:48pm June 28, 2025 1:48pm 2.2 g/dL Below low normal 3.4-5.0 Eosinoph ils # (Auto) June 28, 2025 1:49pm June 28, 2025 1:49pm 0.2 10 3/uL 0.0-0.7 Urine Other Crystals June 28, 2025 3:05pm None Seen #/HPF None Seen Albumin June 29, 2025 5:42am June 29, 2025 5:42am 2.0 g/dL Below low normal 3.4-5.0 Eosinoph ils # (Auto) June 29, 2025 5:54am June 29, 2025 5:54am 0.1 10 3/uL 0.0-0.7 Blood Urea Nitrogen June 30, 2025 5:15am June 30, 2025 5:15am 34.0 mg/dL Above high normal 7.0-18.0 Blood Urea Nitrogen July 01, 2025 5:46am July 01, 2025 5:46am 36.0 mg/dL Above high normal 7.0-18.0 Albumin July 22, 2025 5:55am 2.1 g/dL Below low normal 3.4-5.0 Eosinoph ils # (Auto) July 22, 2025 5:55am July 22, 2025 5:55am 0.1 10 3/uL 0.0-0.7 Blood Urea Nitrogen July 23, 2025 7:58am July 23, 2025 7:58am 41.0 mg/dL Above high normal 7.0-18.0 Calcium Level May 28, 2025 4:45am May 28, 2025 4:45am 8.5 mg/dL 8.5-10.1 Eosinoph ils (%) (Auto) May 28, 2025 4:45am May 28, 2025 4:45am 3.3 % 0.9-7.0 Urine Amorphou s Sediment May 28, 2025 6:08am RARE Calcium Level May 29, 2025 5:24am May 29, 2025 5:24am 8.3 mg/dL Below low normal 8.5-10.1 Eosinoph ils % May 29, 2025 5:24am May 29, 2025 5:24am 0.0 % Below low normal 0.9-7.0 Mean Corpuscu lar Hemoglob in [facility] May 29, 2025 5:24am 32.9 g/dL 29.9-35.2 Mean Corpuscu lar Hemoglob in [facility] May 30, 2025 6:40am May 30, 2025 6:40am 32.2 g/dL 29.9-35.2 Calcium Level May 30, 2025 6:40am May 30, 2025 6:40am 8.5 mg/dL 8.5-10.1 Calcium Level May 31, 2025 5:50am May 31, 2025 5:50am 8.2 mg/dL Below low normal 8.5-10.1 Calcium Level June 08, 2025 3:09pm June 08, 2025 3:09pm 8.7 mg/dL 8.5-10.1 Eosinoph ils (%) (Auto) June 08, 2025 3:09pm June 08, 2025 3:09pm 1.9 % 0.9-7.0 Urine Bilirubi n June 08, 2025 4:00pm NEGATIVE NEGATIVE Alkaline Phosphat ase June 09, 2025 5:05am June 09, 2025 5:05am 104 U/L 46-116 Eosinoph ils (%) (Auto) June 09, 2025 5:05am June 09, 2025 5:05am 1.8 % 0.9-7.0 Alkaline Phosphat ase June 10, 2025 5:03am June 10, 2025 5:03am 96 U/L 46-116 Eosinoph ils (%) (Auto) June 10, 2025 5:03am June 10, 2025 5:03am 2.1 % 0.9-7.0 Calcium Level June 19, 2025 5:18am June 19, 2025 5:18am 8.5 mg/dL 8.5-10.1 Mean Corpuscu lar Hemoglob in [facility] June 19, 2025 5:18am June 19, 2025 5:18am 32.8 g/dL 29.9-35.2 Alkaline Phosphat ase June 28, 2025 1:48pm June 28, 2025 1:48pm 104 U/L 46-116 Eosinoph ils (%) (Auto) June 28, 2025 1:49pm June 28, 2025 1:49pm 2.4 % 0.9-7.0 Urine Bacteria June 28, 2025 3:05pm TRACE #/HPF Abnormal (applies to non-numeric results) NONE SEEN Alkaline Phosphat ase June 29, 2025 5:42am June 29, 2025 5:42am 109 U/L 46-116 Eosinoph ils (%) (Auto) June 29, 2025 5:54am June 29, 2025 5:54am 2.4 % 0.9-7.0 Calcium Level June 30, 2025 5:15am June 30, 2025 5:15am 8.2 mg/dL Below low normal 8.5-10.1 Calcium Level July 01, 2025 5:46am July 01, 2025 5:46am 8.3 mg/dL Below low normal 8.5-10.1 Alkaline Phosphat ase July 22, 2025 5:55am 137 U/L Above high normal 46-116 Eosinoph ils (%) (Auto) July 22, 2025 5:55am July 22, 2025 5:55am 2.3 % 0.9-7.0 Calcium Level July 23, 2025 7:58am July 23, 2025 7:58am 8.3 mg/dL Below low normal 8.5-10.1 Chloride Level May 28, 2025 4:45am May 28, 2025 4:45am 107 mmol/L 98-107 Hematocr it May 28, 2025 4:45am May 28, 2025 4:45am 34.4 % Below low normal 36.0-48.0 Urine Bacteria May 28, 2025 6:08am TRACE #/HPF Abnormal (applies to non-numeric results) NONE SEEN Chloride Level May 29, 2025 5:24am May 29, 2025 5:24am 105 mmol/L 98-107 Lymphocy edtih # (Manual) May 29, 2025 5:24am May 29, 2025 5:24am 0.59 10 3/uL Below low normal 1.20-3.80 Mean Corpuscu lar Volume May 29, 2025 5:24am 91.0 fL 81.0-99.0 Mean Corpuscu lar Volume May 30, 2025 6:40am May 30, 2025 6:40am 92.2 fL 81.0-99.0 Chloride Level May 30, 2025 6:40am May 30, 2025 6:40am 106 mmol/L 98-107 Chloride Level May 31, 2025 5:50am May 31, 2025 5:50am 106 mmol/L 98-107 Chloride Level June 08, 2025 3:09pm June 08, 2025 3:09pm 105 mmol/L 98-107 Hematocr it June 08, 2025 3:09pm June 08, 2025 3:09pm 35.3 % Below low normal 36.0-48.0 Urine Occult Blood June 08, 2025 4:00pm MODERATE Abnormal (applies to non-numeric results) NEGATIVE Alanine Aminotra nsferase (ALT/SGP T) June 09, 2025 5:05am June 09, 2025 5:05am 14 U/L 14-59 Hematocr it June 09, 2025 5:05am June 09, 2025 5:05am 31.8 % Below low normal 36.0-48.0 Alanine Aminotra nsferase (ALT/SGP T) June 10, 2025 5:03am June 10, 2025 5:03am 14 U/L 14-59 Hematocr it June 10, 2025 5:03am June 10, 2025 5:03am 31.3 % Below low normal 36.0-48.0 Chloride Level June 19, 2025 5:18am June 19, 2025 5:18am 106 mmol/L 98-107 Mean Corpuscu lar Volume June 19, 2025 5:18am June 19, 2025 5:18am 91.5 fL 81.0-99.0 Alanine Aminotra nsferase (ALT/SGP T) June 28, 2025 1:48pm June 28, 2025 1:48pm 16 U/L 14-59 Hematocr it June 28, 2025 1:49pm June 28, 2025 1:49pm 34.9 % Below low normal 36.0-48.0 Urine Bilirubi n June 28, 2025 3:05pm NEGATIVE NEGATIVE Alanine Aminotra nsferase (ALT/SGP T) June 29, 2025 5:42am June 29, 2025 5:42am 17 U/L 14-59 Hematocr it June 29, 2025 5:54am June 29, 2025 5:54am 32.4 % Below low normal 36.0-48.0 Chloride Level June 30, 2025 5:15am June 30, 2025 5:15am 106 mmol/L 98-107 Chloride Level July 01, 2025 5:46am July 01, 2025 5:46am 106 mmol/L 98-107 Alanine Aminotra nsferase (ALT/SGP T) July 22, 2025 5:55am 15 U/L 14-59 Hematocr it July 22, 2025 5:55am July 22, 2025 5:55am 32.6 % Below low normal 36.0-48.0 Chloride Level July 23, 2025 7:58am July 23, 2025 7:58am 109 mmol/L Above high normal 98-107 Carbon Dioxide Level May 28, 2025 4:45am May 28, 2025 4:45am 29.3 mmol/L 21.0-32.0 Hemoglob in May 28, 2025 4:45am May 28, 2025 4:45am 11.2 g/dL Below low normal 12.0-16.0 Urine Bilirubi n May 28, 2025 6:08am NEGATIVE NEGATIVE Carbon Dioxide Level May 29, 2025 5:24am May 29, 2025 5:24am 28.4 mmol/L 21.0-32.0 Lymphocy edith % May 29, 2025 5:24am May 29, 2025 5:24am 3.0 % Below low normal 20.5-60.0 Mean Platelet Volume May 29, 2025 5:24am 10.3 fL 9.5-13.5 Mean Platelet Volume May 30, 2025 6:40am May 30, 2025 6:40am 10.3 fL 9.5-13.5 Carbon Dioxide Level May 30, 2025 6:40am May 30, 2025 6:40am 27.5 mmol/L 21.0-32.0 Carbon Dioxide Level May 31, 2025 5:50am May 31, 2025 5:50am 26.2 mmol/L 21.0-32.0 Carbon Dioxide Level June 08, 2025 3:09pm June 08, 2025 3:09pm 30.5 mmol/L 21.0-32.0 Hemoglob in June 08, 2025 3:09pm June 08, 2025 3:09pm 11.4 g/dL Below low normal 12.0-16.0 Urine Appearan ce June 08, 2025 4:00pm CLEAR CLEAR Aspartat e Amino Transf (AST/SGO T) June 09, 2025 5:05am June 09, 2025 5:05am 13 U/L Below low normal 15-37 Hemoglob in June 09, 2025 5:05am June 09, 2025 5:05am 10.4 g/dL Below low normal 12.0-16.0 Aspartat e Amino Transf (AST/SGO T) June 10, 2025 5:03am June 10, 2025 5:03am 15 U/L 15-37 Hemoglob in June 10, 2025 5:03am June 10, 2025 5:03am 10.1 g/dL Below low normal 12.0-16.0 Carbon Dioxide Level June 19, 2025 5:18am June 19, 2025 5:18am 33.4 mmol/L Above high normal 21.0-32.0 Mean Platelet Volume June 19, 2025 5:18am June 19, 2025 5:18am 10.2 fL 9.5-13.5 Aspartat e Amino Transf (AST/SGO T) June 28, 2025 1:48pm June 28, 2025 1:48pm 21 U/L 15-37 Hemoglob in June 28, 2025 1:49pm June 28, 2025 1:49pm 11.2 g/dL Below low normal 12.0-16.0 Urine Occult Blood June 28, 2025 3:05pm SMALL Abnormal (applies to non-numeric results) NEGATIVE Aspartat e Amino Transf (AST/SGO T) June 29, 2025 5:42am June 29, 2025 5:42am 16 U/L 15-37 Hemoglob in June 29, 2025 5:54am June 29, 2025 5:54am 10.2 g/dL Below low normal 12.0-16.0 Carbon Dioxide Level June 30, 2025 5:15am June 30, 2025 5:15am 32.9 mmol/L Above high normal 21.0-32.0 Carbon Dioxide Level July 01, 2025 5:46am July 01, 2025 5:46am 31.7 mmol/L 21.0-32.0 Aspartat e Amino Transf (AST/SGO T) July 22, 2025 5:55am 12 U/L Below low normal 15-37 Hemoglob in July 22, 2025 5:55am July 22, 2025 5:55am 10.5 g/dL Below low normal 12.0-16.0 Carbon Dioxide Level July 23, 2025 7:58am July 23, 2025 7:58am 27.5 mmol/L 21.0-32.0 Creatini ne May 28, 2025 4:45am May 28, 2025 4:45am 1.48 mg/dL Above high normal 0.55-1.02 Immature Granuloc yte # (Auto) May 28, 2025 4:45am May 28, 2025 4:45am 0.01 10 3/uL 0.00-0.03 Urine Occult Blood May 28, 2025 6:08am SMALL Abnormal (applies to non-numeric results) NEGATIVE Creatini ne May 29, 2025 5:24am May 29, 2025 5:24am 1.53 mg/dL Above high normal 0.55-1.02 Monocyte s # (Manual) May 29, 2025 5:24am May 29, 2025 5:24am 1.18 10 3/uL Above high normal 0.30-0.80 Platelet Count May 29, 2025 5:24am 208 10 3/uL 150-450 Platelet Count May 30, 2025 6:40am May 30, 2025 6:40am 183 10 3/uL 150-450 Creatini ne May 30, 2025 6:40am May 30, 2025 6:40am 1.78 mg/dL Above high normal 0.55-1.02 Creatini ne May 31, 2025 5:50am May 31, 2025 5:50am 1.60 mg/dL Above high normal 0.55-1.02 Creatini ne June 08, 2025 3:09pm June 08, 2025 3:09pm 1.69 mg/dL Above high normal 0.55-1.02 Immature Granuloc yte # (Auto) June 08, 2025 3:09pm June 08, 2025 3:09pm 0.02 10 3/uL 0.00-0.03 Urine Color June 08, 2025 4:00pm LT. YELLOW YELLOW BUN/Crea tinine Ratio June 09, 2025 5:05am June 09, 2025 5:05am 18.3 Immature Granuloc yte # (Auto) June 09, 2025 5:05am June 09, 2025 5:05am 0.03 10 3/uL 0.00-0.03 BUN/Crea tinine Ratio June 10, 2025 5:03am June 10, 2025 5:03am 16.6 Immature Granuloc yte # (Auto) June 10, 2025 5:03am June 10, 2025 5:03am 0.03 10 3/uL 0.00-0.03 Creatini ne June 19, 2025 5:18am June 19, 2025 5:18am 1.81 mg/dL Above high normal 0.55-1.02 Platelet Count June 19, 2025 5:18am June 19, 2025 5:18am 244 10 3/uL 150-450 BUN/Crea tinine Ratio June 28, 2025 1:48pm June 28, 2025 1:48pm 22.6 Immature Granuloc yte # (Auto) June 28, 2025 1:49pm June 28, 2025 1:49pm 0.01 10 3/uL 0.00-0.03 Urine Appearan ce June 28, 2025 3:05pm CLEAR CLEAR BUN/Crea tinine Ratio June 29, 2025 5:42am June 29, 2025 5:42am 22.5 Immature Granuloc yte # (Auto) June 29, 2025 5:54am June 29, 2025 5:54am 0.01 10 3/uL 0.00-0.03 Creatini ne June 30, 2025 5:15am June 30, 2025 5:15am 1.74 mg/dL Above high normal 0.55-1.02 Creatini ne July 01, 2025 5:46am July 01, 2025 5:46am 1.95 mg/dL Above high normal 0.55-1.02 BUN/Crea tinine Ratio July 22, 2025 5:55am 26.9 Immature Granuloc yte # (Auto) July 22, 2025 5:55am July 22, 2025 5:55am 0.01 10 3/uL 0.00-0.03 Creatini ne July 23, 2025 7:58am July 23, 2025 7:58am 1.64 mg/dL Above high normal 0.55-1.02 Estimate d GFR ( ) May 28, 2025 4:45am May 28, 2025 4:45am 41 Below low normal >=60 mL/min/1.7 3m 2 Immature Granuloc yte % (Auto) May 28, 2025 4:45am May 28, 2025 4:45am 0.1 % 0.0-0.5 Urine Appearan ce May 28, 2025 6:08am CLEAR CLEAR Estimate d GFR ( ) May 29, 2025 5:24am May 29, 2025 5:24am 40 Below low normal >=60 mL/min/1.7 3m 2 Monocyte s % May 29, 2025 5:24am May 29, 2025 5:24am 6.0 % 1.7-12.0 Red Blood Count May 29, 2025 5:24am 3.54 10 6/uL Below low normal 4.20-5.40 Red Blood Count May 30, 2025 6:40am May 30, 2025 6:40am 3.57 10 6/uL Below low normal 4.20-5.40 Estimate d GFR ( ) May 30, 2025 6:40am May 30, 2025 6:40am 33 Below low normal >=60 mL/min/1.7 3m 2 Estimate d GFR ( ) May 31, 2025 5:50am May 31, 2025 5:50am 38 Below low normal >=60 mL/min/1.7 3m 2 Estimate d GFR ( ) June 08, 2025 3:09pm June 08, 2025 3:09pm 35 Below low normal >=60 mL/min/1.7 3m 2 Immature Granuloc yte % (Auto) June 08, 2025 3:09pm June 08, 2025 3:09pm 0.2 % 0.0-0.5 Urine Glucose (UA) June 08, 2025 4:00pm 250 mg/dL Abnormal (applies to non-numeric results) NEGATIVE Blood Urea Nitrogen June 09, 2025 5:05am June 09, 2025 5:05am 28.0 mg/dL Above high normal 7.0-18.0 Immature Granuloc yte % (Auto) June 09, 2025 5:05am June 09, 2025 5:05am 0.4 % 0.0-0.5 Blood Urea Nitrogen June 10, 2025 5:03am June 10, 2025 5:03am 30.0 mg/dL Above high normal 7.0-18.0 Immature Granuloc yte % (Auto) June 10, 2025 5:03am June 10, 2025 5:03am 0.3 % 0.0-0.5 Estimate d GFR ( ) June 19, 2025 5:18am June 19, 2025 5:18am 33 Below low normal >=60 mL/min/1.7 3m 2 Red Blood Count June 19, 2025 5:18am June 19, 2025 5:18am 3.66 10 6/uL Below low normal 4.20-5.40 Blood Urea Nitrogen June 28, 2025 1:48pm June 28, 2025 1:48pm 31.0 mg/dL Above high normal 7.0-18.0 Immature Granuloc yte % (Auto) June 28, 2025 1:49pm June 28, 2025 1:49pm 0.1 % 0.0-0.5 Urine Color June 28, 2025 3:05pm LT. YELLOW YELLOW Blood Urea Nitrogen June 29, 2025 5:42am June 29, 2025 5:42am 31.0 mg/dL Above high normal 7.0-18.0 Immature Granuloc yte % (Auto) June 29, 2025 5:54am June 29, 2025 5:54am 0.2 % 0.0-0.5 Estimate d GFR ( ) June 30, 2025 5:15am June 30, 2025 5:15am 34 Below low normal >=60 mL/min/1.7 3m 2 Estimate d GFR ( ) July 01, 2025 5:46am July 01, 2025 5:46am 30 Below low normal >=60 mL/min/1.7 3m 2 Blood Urea Nitrogen July 22, 2025 5:55am 39.0 mg/dL Above high normal 7.0-18.0 Immature Granuloc yte % (Auto) July 22, 2025 5:55am July 22, 2025 5:55am 0.2 % 0.0-0.5 Estimate d GFR ( ) July 23, 2025 7:58am July 23, 2025 7:58am 37 Below low normal >=60 mL/min/1.7 3m 2 Estimate d GFR (Non-Afr ican [place] May 28, 2025 4:45am May 28, 2025 4:45am 34 Below low normal >=60 mL/min/1.7 3m 2 Lymphocy edith # (Auto) May 28, 2025 4:45am May 28, 2025 4:45am 1.4 10 3/uL 1.2-3.8 Urine Color May 28, 2025 6:08am LT. YELLOW YELLOW Estimate d GFR (Non-Afr ican [place] May 29, 2025 5:24am May 29, 2025 5:24am 33 Below low normal >=60 mL/min/1.7 3m 2 Segmente d Neutroph ils # (Manual) May 29, 2025 5:24am May 29, 2025 5:24am 18.01 10 3/uL Above high normal 1.4-6.5 Red Cell Distribu tion Width May 29, 2025 5:24am 16.6 % Above high normal 11.0-15.0 Red Cell Distribu tion Width May 30, 2025 6:40am May 30, 2025 6:40am 17.2 % Above high normal 11.0-15.0 Estimate d GFR (Non-Afr ican [place] May 30, 2025 6:40am May 30, 2025 6:40am 28 Below low normal >=60 mL/min/1.7 3m 2 Estimate d GFR (Non-Afr ican [place] May 31, 2025 5:50am May 31, 2025 5:50am 31 Below low normal >=60 mL/min/1.7 3m 2 Estimate d GFR (Non-Afr ican [place] June 08, 2025 3:09pm June 08, 2025 3:09pm 29 Below low normal >=60 mL/min/1.7 3m 2 Lymphocy edith # (Auto) June 08, 2025 3:09pm June 08, 2025 3:09pm 1.1 10 3/uL Below low normal 1.2-3.8 Urine Hyaline Casts June 08, 2025 4:00pm MODERATE Calcium Level June 09, 2025 5:05am June 09, 2025 5:05am 8.1 mg/dL Below low normal 8.5-10.1 Lymphocy edith # (Auto) June 09, 2025 5:05am June 09, 2025 5:05am 1.4 10 3/uL 1.2-3.8 Calcium Level June 10, 2025 5:03am June 10, 2025 5:03am 8.2 mg/dL Below low normal 8.5-10.1 Lymphocy edith # (Auto) June 10, 2025 5:03am June 10, 2025 5:03am 1.4 10 3/uL 1.2-3.8 Estimate d GFR (Non-Afr ican [place] June 19, 2025 5:18am June 19, 2025 5:18am 27 Below low normal >=60 mL/min/1.7 3m 2 Red Cell Distribu tion Width June 19, 2025 5:18am June 19, 2025 5:18am 15.8 % Above high normal 11.0-15.0 Calcium Level June 28, 2025 1:48pm June 28, 2025 1:48pm 8.4 mg/dL Below low normal 8.5-10.1 Lymphocy edith # (Auto) June 28, 2025 1:49pm June 28, 2025 1:49pm 0.9 10 3/uL Below low normal 1.2-3.8 Urine Glucose (UA) June 28, 2025 3:05pm 100 mg/dL Abnormal (applies to non-numeric results) NEGATIVE Calcium Level June 29, 2025 5:42am June 29, 2025 5:42am 8.2 mg/dL Below low normal 8.5-10.1 Lymphocy edith # (Auto) June 29, 2025 5:54am June 29, 2025 5:54am 1.2 10 3/uL 1.2-3.8 Estimate d GFR (Non-Afr ican [place] June 30, 2025 5:15am June 30, 2025 5:15am 28 Below low normal >=60 mL/min/1.7 3m 2 Estimate d GFR (Non-Afr ican [place] July 01, 2025 5:46am July 01, 2025 5:46am 25 Below low normal >=60 mL/min/1.7 3m 2 Calcium Level July 22, 2025 5:55am 8.2 mg/dL Below low normal 8.5-10.1 Lymphocy edith # (Auto) July 22, 2025 5:55am July 22, 2025 5:55am 0.9 10 3/uL Below low normal 1.2-3.8 Estimate d GFR (Non-Afr ican [place] July 23, 2025 7:58am July 23, 2025 7:58am 30 Below low normal >=60 mL/min/1.7 3m 2 Glucose Level May 28, 2025 4:45am May 28, 2025 4:45am 64 mg/dL Below low normal 74-106 Lymphocy edith (%) (Auto) May 28, 2025 4:45am May 28, 2025 4:45am 20.0 % Below low normal 20.5-60.0 Urine Glucose (UA) May 28, 2025 6:08am 100 mg/dL Abnormal (applies to non-numeric results) NEGATIVE Glucose Level May 29, 2025 5:24am May 29, 2025 5:24am 130 mg/dL Above high normal 74-106 Segmente d Neutroph ils May 29, 2025 5:24am May 29, 2025 5:24am 91.0 Above high normal 43.0-75.0 Correcte d White Blood Count May 29, 2025 5:24am 19.8 10 3/uL Above high normal 4.0-11.0 Correcte d White Blood Count May 30, 2025 6:40am May 30, 2025 6:40am 18.7 10 3/uL Above high normal 4.0-11.0 Glucose Level May 30, 2025 6:40am May 30, 2025 6:40am 97 mg/dL 74-106 Glucose Level May 31, 2025 5:50am May 31, 2025 5:50am 103 mg/dL 74-106 Glucose Level June 08, 2025 3:09pm June 08, 2025 3:09pm 177 mg/dL Above high normal 74-106 Lymphocy edith (%) (Auto) June 08, 2025 3:09pm June 08, 2025 3:09pm 13.3 % Below low normal 20.5-60.0 Urine Ketones June 08, 2025 4:00pm NEGATIVE mg/dL NEGATIVE Chloride Level June 09, 2025 5:05am June 09, 2025 5:05am 106 mmol/L 98-107 Lymphocy edith (%) (Auto) June 09, 2025 5:05am June 09, 2025 5:05am 17.3 % Below low normal 20.5-60.0 Chloride Level June 10, 2025 5:03am June 10, 2025 5:03am 108 mmol/L Above high normal 98-107 Lymphocy edith (%) (Auto) June 10, 2025 5:03am June 10, 2025 5:03am 15.0 % Below low normal 20.5-60.0 Glucose Level June 19, 2025 5:18am June 19, 2025 5:18am 134 mg/dL Above high normal 74-106 Correcte d White Blood Count June 19, 2025 5:18am June 19, 2025 5:18am 6.5 10 3/uL 4.0-11.0 Chloride Level June 28, 2025 1:48pm June 28, 2025 1:48pm 106 mmol/L 98-107 Lymphocy edith (%) (Auto) June 28, 2025 1:49pm June 28, 2025 1:49pm 12.6 % Below low normal 20.5-60.0 Urine Hyaline Casts June 28, 2025 3:05pm RARE Chloride Level June 29, 2025 5:42am June 29, 2025 5:42am 109 mmol/L Above high normal 98-107 Lymphocy edith (%) (Auto) June 29, 2025 5:54am June 29, 2025 5:54am 20.6 % 20.5-60.0 Glucose Level June 30, 2025 5:15am June 30, 2025 5:15am 50 mg/dL Below low normal 74-106 Glucose Level July 01, 2025 5:46am July 01, 2025 5:46am 189 mg/dL Above high normal 74-106 Chloride Level July 22, 2025 5:55am 109 mmol/L Above high normal 98-107 Lymphocy edith (%) (Auto) July 22, 2025 5:55am July 22, 2025 5:55am 15.0 % Below low normal 20.5-60.0 Glucose Level July 23, 2025 7:58am July 23, 2025 7:58am 151 mg/dL Above high normal 74-106 [place] Level May 28, 2025 4:45am May 28, 2025 4:45am 4.1 mmol/L 3.5-5.1 Mean Corpuscu lar Hemoglob in May 28, 2025 4:45am May 28, 2025 4:45am 29.7 pg 26.7-34.0 Urine Hyaline Casts May 28, 2025 6:08am RARE [place] Level May 29, 2025 5:24am May 29, 2025 5:24am 3.8 mmol/L 3.5-5.1 [place] Level May 30, 2025 6:40am May 30, 2025 6:40am 4.0 mmol/L 3.5-5.1 [place] Level May 31, 2025 5:50am May 31, 2025 5:50am 3.8 mmol/L 3.5-5.1 [place] Level June 08, 2025 3:09pm June 08, 2025 3:09pm 3.2 mmol/L Below low normal 3.5-5.1 Mean Corpuscu lar Hemoglob in June 08, 2025 3:09pm June 08, 2025 3:09pm 29.2 pg 26.7-34.0 Urine Leukocyt e Esterase June 08, 2025 4:00pm NEGATIVE NEGATIVE Carbon Dioxide Level June 09, 2025 5:05am June 09, 2025 5:05am 29.8 mmol/L 21.0-32.0 Mean Corpuscu lar Hemoglob in June 09, 2025 5:05am June 09, 2025 5:05am 29.3 pg 26.7-34.0 Carbon Dioxide Level June 10, 2025 5:03am June 10, 2025 5:03am 30.5 mmol/L 21.0-32.0 Mean Corpuscu lar Hemoglob in June 10, 2025 5:03am June 10, 2025 5:03am 29.6 pg 26.7-34.0 [place] Level June 19, 2025 5:18am June 19, 2025 5:18am 3.3 mmol/L Below low normal 3.5-5.1 Carbon Dioxide Level June 28, 2025 1:48pm June 28, 2025 1:48pm 30.7 mmol/L 21.0-32.0 Mean Corpuscu lar Hemoglob in June 28, 2025 1:49pm June 28, 2025 1:49pm 29.5 pg 26.7-34.0 Urine Ketones June 28, 2025 3:05pm NEGATIVE mg/dL NEGATIVE Carbon Dioxide Level June 29, 2025 5:42am June 29, 2025 5:42am 31.7 mmol/L 21.0-32.0 Mean Corpuscu lar Hemoglob in June 29, 2025 5:54am June 29, 2025 5:54am 29.3 pg 26.7-34.0 [place] Level June 30, 2025 5:15am June 30, 2025 5:15am 3.2 mmol/L Below low normal 3.5-5.1 [facility] m Level July 01, 2025 5:46am July 01, 2025 5:46am 3.6 mmol/L 3.5-5.1 Carbon Dioxide Level July 22, 2025 5:55am 26.1 mmol/L 21.0-32.0 Mean Corpuscu lar Hemoglob in July 22, 2025 5:55am July 22, 2025 5:55am 29.7 pg 26.7-34.0 [facility] Level July 23, 2025 7:58am July 23, 2025 7:58am 4.4 mmol/L 3.5-5.1 Sodium Level May 28, 2025 4:45am May 28, 2025 4:45am 143 mmol/L 136-145 Mean Corpuscu lar Hemoglob in [facility] May 28, 2025 4:45am May 28, 2025 4:45am 32.6 g/dL 29.9-35.2 Urine Ketones May 28, 2025 6:08am NEGATIVE mg/dL NEGATIVE Sodium Level May 29, 2025 5:24am May 29, 2025 5:24am 143 mmol/L 136-145 Sodium Level May 30, 2025 6:40am May 30, 2025 6:40am 143 mmol/L 136-145 Sodium Level May 31, 2025 5:50am May 31, 2025 5:50am 142 mmol/L 136-145 Sodium Level June 08, 2025 3:09pm June 08, 2025 3:09pm 144 mmol/L 136-145 Mean Corpuscu lar Hemoglob in [facility] June 08, 2025 3:09pm June 08, 2025 3:09pm 32.3 g/dL 29.9-35.2 Urine Mucus June 08, 2025 4:00pm SMALL Abnormal (applies to non-numeric results) NONE SEEN Creatini ne June 09, 2025 5:05am June 09, 2025 5:05am 1.53 mg/dL Above high normal 0.55-1.02 Mean Corpuscu lar Hemoglob in [facility] June 09, 2025 5:05am June 09, 2025 5:05am 32.7 g/dL 29.9-35.2 Creatini ne June 10, 2025 5:03am June 10, 2025 5:03am 1.81 mg/dL Above high normal 0.55-1.02 Mean Corpuscu lar Hemoglob in [facility] June 10, 2025 5:03am June 10, 2025 5:03am 32.3 g/dL 29.9-35.2 Sodium Level June 19, 2025 5:18am June 19, 2025 5:18am 145 mmol/L 136-145 Creatini ne June 28, 2025 1:48pm June 28, 2025 1:48pm 1.37 mg/dL Above high normal 0.55-1.02 Mean Corpuscu lar Hemoglob in [facility] June 28, 2025 1:49pm June 28, 2025 1:49pm 32.1 g/dL 29.9-35.2 Urine Leukocyt e Esterase June 28, 2025 3:05pm NEGATIVE NEGATIVE Creatini ne June 29, 2025 5:42am June 29, 2025 5:42am 1.38 mg/dL Above high normal 0.55-1.02 Mean Corpuscu lar Hemoglob in [facility] June 29, 2025 5:54am June 29, 2025 5:54am 31.5 g/dL 29.9-35.2 Sodium Level June 30, 2025 5:15am June 30, 2025 5:15am 144 mmol/L 136-145 Sodium Level July 01, 2025 5:46am July 01, 2025 5:46am 143 mmol/L 136-145 Creatini ne July 22, 2025 5:55am 1.45 mg/dL Above high normal 0.55-1.02 Mean Corpuscu lar Hemoglob in [facility] July 22, 2025 5:55am July 22, 2025 5:55am 32.2 g/dL 29.9-35.2 Sodium Level July 23, 2025 7:58am July 23, 2025 7:58am 144 mmol/L 136-145 Mean Corpuscu lar Volume May 28, 2025 4:45am May 28, 2025 4:45am 91.2 fL 81.0-99.0 Urine Leukocyt e Esterase May 28, 2025 6:08am NEGATIVE NEGATIVE Mean Corpuscu lar Volume June 08, 2025 3:09pm June 08, 2025 3:09pm 90.3 fL 81.0-99.0 Urine Nitrite June 08, 2025 4:00pm NEGATIVE NEGATIVE Estimate d GFR ( ) June 09, 2025 5:05am June 09, 2025 5:05am 40 Below low normal >=60 mL/min/1.7 3m 2 Mean Corpuscu lar Volume June 09, 2025 5:05am June 09, 2025 5:05am 89.6 fL 81.0-99.0 Estimate d GFR ( ) June 10, 2025 5:03am June 10, 2025 5:03am 33 Below low normal >=60 mL/min/1.7 3m 2 Mean Corpuscu lar Volume June 10, 2025 5:03am June 10, 2025 5:03am 91.8 fL 81.0-99.0 Estimate d GFR ( ) June 28, 2025 1:48pm June 28, 2025 1:48pm 45 Below low normal >=60 mL/min/1.7 3m 2 Mean Corpuscu lar Volume June 28, 2025 1:49pm June 28, 2025 1:49pm 91.8 fL 81.0-99.0 Urine Mucus June 28, 2025 3:05pm TRACE Abnormal (applies to non-numeric results) NONE SEEN Estimate d GFR ( ) June 29, 2025 5:42am June 29, 2025 5:42am 45 Below low normal >=60 mL/min/1.7 3m 2 Mean Corpuscu lar Volume June 29, 2025 5:54am June 29, 2025 5:54am 93.1 fL 81.0-99.0 Estimate d GFR ( ) July 22, 2025 5:55am 42 Below low normal >=60 mL/min/1.7 3m 2 Mean Corpuscu lar Volume July 22, 2025 5:55am July 22, 2025 5:55am 92.1 fL 81.0-99.0 Monocyte s # (Auto) May 28, 2025 4:45am May 28, 2025 4:45am 0.6 10 3/uL 0.3-0.8 Urine Mucus May 28, 2025 6:08am NONE SEEN NONE SEEN Monocyte s # (Auto) June 08, 2025 3:09pm June 08, 2025 3:09pm 0.4 10 3/uL 0.3-0.8 Urine pH June 08, 2025 4:00pm 6.5 5.0-9.0 Estimate d GFR (Non-Afr ican [place] June 09, 2025 5:05am June 09, 2025 5:05am 33 Below low normal >=60 mL/min/1.7 3m 2 Monocyte s # (Auto) June 09, 2025 5:05am June 09, 2025 5:05am 0.5 10 3/uL 0.3-0.8 Estimate d GFR (Non-Afr ican [place] June 10, 2025 5:03am June 10, 2025 5:03am 27 Below low normal >=60 mL/min/1.7 3m 2 Monocyte s # (Auto) June 10, 2025 5:03am June 10, 2025 5:03am 0.5 10 3/uL 0.3-0.8 Estimate d GFR (Non-Afr ican [place] June 28, 2025 1:48pm June 28, 2025 1:48pm 37 Below low normal >=60 mL/min/1.7 3m 2 Monocyte s # (Auto) June 28, 2025 1:49pm June 28, 2025 1:49pm 0.6 10 3/uL 0.3-0.8 Urine Nitrite June 28, 2025 3:05pm NEGATIVE NEGATIVE Estimate d GFR (Non-Afr ican [place] June 29, 2025 5:42am June 29, 2025 5:42am 37 Below low normal >=60 mL/min/1.7 3m 2 Monocyte s # (Auto) June 29, 2025 5:54am June 29, 2025 5:54am 0.6 10 3/uL 0.3-0.8 Estimate d GFR (Non-Afr ican [place] July 22, 2025 5:55am 35 Below low normal >=60 mL/min/1.7 3m 2 Monocyte s # (Auto) July 22, 2025 5:55am July 22, 2025 5:55am 0.5 10 3/uL 0.3-0.8 Monocyte s (%) (Auto) May 28, 2025 4:45am May 28, 2025 4:45am 8.9 % 1.7-12.0 Urine Nitrite May 28, 2025 6:08am NEGATIVE NEGATIVE Monocyte s (%) (Auto) June 08, 2025 3:09pm June 08, 2025 3:09pm 5.2 % 1.7-12.0 Urine Protein June 08, 2025 4:00pm >=300 mg/dL Abnormal (applies to non-numeric results) NEG/TRACE Globulin June 09, 2025 5:05am June 09, 2025 5:05am 4.9 g/dL Monocyte s (%) (Auto) June 09, 2025 5:05am June 09, 2025 5:05am 6.5 % 1.7-12.0 Globulin June 10, 2025 5:03am June 10, 2025 5:03am 4.6 g/dL Monocyte s (%) (Auto) June 10, 2025 5:03am June 10, 2025 5:03am 5.6 % 1.7-12.0 Globulin June 28, 2025 1:48pm June 28, 2025 1:48pm 5.1 g/dL Monocyte s (%) (Auto) June 28, 2025 1:49pm June 28, 2025 1:49pm 8.1 % 1.7-12.0 Urine pH June 28, 2025 3:05pm 7.0 5.0-9.0 Globulin June 29, 2025 5:42am June 29, 2025 5:42am 3.8 g/dL Monocyte s (%) (Auto) June 29, 2025 5:54am June 29, 2025 5:54am 10.1 % 1.7-12.0 Globulin July 22, 2025 5:55am 5.0 g/dL Monocyte s (%) (Auto) July 22, 2025 5:55am July 22, 2025 5:55am 8.2 % 1.7-12.0 Mean Platelet Volume May 28, 2025 4:45am May 28, 2025 4:45am 10.0 fL 9.5-13.5 Urine pH May 28, 2025 6:08am 7.0 5.0-9.0 Mean Platelet Volume June 08, 2025 3:09pm June 08, 2025 3:09pm 9.8 fL 9.5-13.5 Urine RBC June 08, 2025 4:00pm 0-2 #/HPF 0-2 Glucose Level June 09, 2025 5:05am June 09, 2025 5:05am 79 mg/dL 74-106 Mean Platelet Volume June 09, 2025 5:05am June 09, 2025 5:05am 11.2 fL 9.5-13.5 Glucose Level June 10, 2025 5:03am June 10, 2025 5:03am 117 mg/dL Above high normal 74-106 Mean Platelet Volume June 10, 2025 5:03am June 10, 2025 5:03am 10.0 fL 9.5-13.5 Glucose Level June 28, 2025 1:48pm June 28, 2025 1:48pm 117 mg/dL Above high normal 74-106 Mean Platelet Volume June 28, 2025 1:49pm June 28, 2025 1:49pm 10.9 fL 9.5-13.5 Urine Protein June 28, 2025 3:05pm >=300 mg/dL Abnormal (applies to non-numeric results) NEG/TRACE Glucose Level June 29, 2025 5:42am June 29, 2025 5:42am 87 mg/dL 74-106 Mean Platelet Volume June 29, 2025 5:54am June 29, 2025 5:54am 10.2 fL 9.5-13.5 Glucose Level July 22, 2025 5:55am 150 mg/dL Above high normal 74-106 Mean Platelet Volume July 22, 2025 5:55am July 22, 2025 5:55am 10.5 fL 9.5-13.5 Neutroph ils # (Auto) May 28, 2025 4:45am May 28, 2025 4:45am 4.6 10 3/uL 1.4-6.5 Urine Protein May 28, 2025 6:08am >=300 mg/dL Abnormal (applies to non-numeric results) NEG/TRACE Neutroph ils # (Auto) June 08, 2025 3:09pm June 08, 2025 3:09pm 6.6 10 3/uL Above high normal 1.4-6.5 Urine Specific [place] June 08, 2025 4:00pm 1.020 1.005-1.02 5 [place] Level June 09, 2025 5:05am June 09, 2025 5:05am 2.7 mmol/L Below lower panic limits 3.5-5.1 RESULTS CALLED TO DWIGHT MCCARTY RN @BY Alla Kunz 0635 Neutroph ils # (Auto) June 09, 2025 5:05am June 09, 2025 5:05am 6.1 10 3/uL 1.4-6.5 [place] Level June 10, 2025 5:03am June 10, 2025 5:03am 3.3 mmol/L Below low normal 3.5-5.1 Neutroph ils # (Auto) June 10, 2025 5:03am June 10, 2025 5:03am 6.8 10 3/uL Above high normal 1.4-6.5 [place] Level June 28, 2025 1:48pm June 28, 2025 1:48pm 4.2 mmol/L 3.5-5.1 Neutroph ils # (Auto) June 28, 2025 1:49pm June 28, 2025 1:49pm 5.6 10 3/uL 1.4-6.5 Urine RBC June 28, 2025 3:05pm 5-10 #/HPF Abnormal (applies to non-numeric results) 0-2 [place] Level June 29, 2025 5:42am June 29, 2025 5:42am 3.7 mmol/L 3.5-5.1 Neutroph ils # (Auto) June 29, 2025 5:54am June 29, 2025 5:54am 3.7 10 3/uL 1.4-6.5 [place] Level July 22, 2025 5:55am 4.8 mmol/L 3.5-5.1 Neutroph ils # (Auto) July 22, 2025 5:55am July 22, 2025 5:55am 4.5 10 3/uL 1.4-6.5 Neutroph ils (%) (Auto) May 28, 2025 4:45am May 28, 2025 4:45am 66.4 % 43.0-75.0 Urine RBC May 28, 2025 6:08am 0-2 #/HPF 0-2 Neutroph ils (%) (Auto) June 08, 2025 3:09pm June 08, 2025 3:09pm 78.2 % Above high normal 43.0-75.0 Urine Squamous Epitheli al Cells June 08, 2025 4:00pm FEW #/LPF Abnormal (applies to non-numeric results) NONE/RARE Sodium Level June 09, 2025 5:05am June 09, 2025 5:05am 146 mmol/L Above high normal 136-145 Neutroph ils (%) (Auto) June 09, 2025 5:05am June 09, 2025 5:05am 72.9 % 43.0-75.0 Sodium Level June 10, 2025 5:03am June 10, 2025 5:03am 146 mmol/L Above high normal 136-145 Neutroph ils (%) (Auto) June 10, 2025 5:03am June 10, 2025 5:03am 75.9 % Above high normal 43.0-75.0 Sodium Level June 28, 2025 1:48pm June 28, 2025 1:48pm 143 mmol/L 136-145 Neutroph ils (%) (Auto) June 28, 2025 1:49pm June 28, 2025 1:49pm 75.6 % Above high normal 43.0-75.0 Urine Specific [place] June 28, 2025 3:05pm 1.020 1.005-1.02 5 Sodium Level June 29, 2025 5:42am June 29, 2025 5:42am 144 mmol/L 136-145 Neutroph ils (%) (Auto) June 29, 2025 5:54am June 29, 2025 5:54am 65.1 % 43.0-75.0 Sodium Level July 22, 2025 5:55am 143 mmol/L 136-145 Neutroph ils (%) (Auto) July 22, 2025 5:55am July 22, 2025 5:55am 73.3 % 43.0-75.0 Platelet Count May 28, 2025 4:45am May 28, 2025 4:45am 236 10 3/uL 150-450 Urine Specific [place] May 28, 2025 6:08am 1.020 1.005-1.02 5 Platelet Count June 08, 2025 3:09pm June 08, 2025 3:09pm 291 10 3/uL 150-450 Urine Transiti onal Epitheli al Cells June 08, 2025 4:00pm RARE #/LPF Abnormal (applies to non-numeric results) NONE SEEN Total Bilirubi n June 09, 2025 5:05am June 09, 2025 5:05am 0.4 mg/dL 0.2-1.0 Platelet Count June 09, 2025 5:05am June 09, 2025 5:05am 222 10 3/uL 150-450 Total Bilirubi n June 10, 2025 5:03am June 10, 2025 5:03am 0.4 mg/dL 0.2-1.0 Platelet Count June 10, 2025 5:03am June 10, 2025 5:03am 248 10 3/uL 150-450 Total Bilirub[place] n June 28, 2025 1:48pm June 28, 2025 1:48pm 0.5 mg/dL 0.2-1.0 Platelet Count June 28, 2025 1:49pm June 28, 2025 1:49pm 158 10 3/uL 150-450 Urine Squamous Epitheli al Cells June 28, 2025 3:05pm FEW #/LPF Abnormal (applies to non-numeric results) NONE/RARE Total Bilirubi n June 29, 2025 5:42am June 29, 2025 5:42am 0.6 mg/dL 0.2-1.0 Platelet Count June 29, 2025 5:54am June 29, 2025 5:54am 194 10 3/uL 150-450 Total Bilirubi n July 22, 2025 5:55am 0.4 mg/dL 0.2-1.0 Platelet Count July 22, 2025 5:55am July 22, 2025 5:55am 200 10 3/uL 150-450 Red Blood Count May 28, 2025 4:45am May 28, 2025 4:45am 3.77 10 6/uL Below low normal 4.20-5.40 Urine Squamous Epitheli al Cells May 28, 2025 6:08am RARE #/LPF NONE/RARE Red Blood Count June 08, 2025 3:09pm June 08, 2025 3:09pm 3.91 10 6/uL Below low normal 4.20-5.40 Urine Urobilin ogen June 08, 2025 4:00pm 0.2 EU/dL 0.2-1.0 Total Protein June 09, 2025 5:05am June 09, 2025 5:05am 6.6 g/dL 6.4-8.2 Red Blood Count June 09, 2025 5:05am June 09, 2025 5:05am 3.55 10 6/uL Below low normal 4.20-5.40 Total Protein June 10, 2025 5:03am June 10, 2025 5:03am 6.3 g/dL Below low normal 6.4-8.2 Red Blood Count June 10, 2025 5:03am June 10, 2025 5:03am 3.41 10 6/uL Below low normal 4.20-5.40 Total Protein June 28, 2025 1:48pm June 28, 2025 1:48pm 7.3 g/dL 6.4-8.2 Red Blood Count June 28, 2025 1:49pm June 28, 2025 1:49pm 3.80 10 6/uL Below low normal 4.20-5.40 Urine Urobilin ogen June 28, 2025 3:05pm 0.2 EU/dL 0.2-1.0 Total Protein June 29, 2025 5:42am June 29, 2025 5:42am 5.8 g/dL Below low normal 6.4-8.2 Red Blood Count June 29, 2025 5:54am June 29, 2025 5:54am 3.48 10 6/uL Below low normal 4.20-5.40 Total Protein July 22, 2025 5:55am 7.1 g/dL 6.4-8.2 Red Blood Count July 22, 2025 5:55am July 22, 2025 5:55am 3.54 10 6/uL Below low normal 4.20-5.40 Red Cell Distribu tion Width May 28, 2025 4:45am May 28, 2025 4:45am 16.9 % Above high normal 11.0-15.0 Urine Urobilin ogen May 28, 2025 6:08am 0.2 EU/dL 0.2-1.0 Red Cell Distribu tion Width June 08, 2025 3:09pm June 08, 2025 3:09pm 16.1 % Above high normal 11.0-15.0 Urine WBC June 08, 2025 4:00pm 2-5 #/HPF Abnormal (applies to non-numeric results) NONE SEEN Red Cell Distribu tion Width June 09, 2025 5:05am June 09, 2025 5:05am 15.9 % Above high normal 11.0-15.0 Red Cell Distribu tion Width June 10, 2025 5:03am June 10, 2025 5:03am 16.4 % Above high normal 11.0-15.0 Red Cell Distribu tion Width June 28, 2025 1:49pm June 28, 2025 1:49pm 15.9 % Above high normal 11.0-15.0 Urine WBC June 28, 2025 3:05pm NONE SEEN #/HPF NONE SEEN Red Cell Distribu tion Width June 29, 2025 5:54am June 29, 2025 5:54am 16.1 % Above high normal 11.0-15.0 Red Cell Distribu tion Width July 22, 2025 5:55am July 22, 2025 5:55am 15.5 % Above high normal 11.0-15.0 Correcte d White Blood Count May 28, 2025 4:45am May 28, 2025 4:45am 6.9 10 3/uL 4.0-11.0 Urine WBC May 28, 2025 6:08am 0-2 #/HPF Abnormal (applies to non-numeric results) NONE SEEN Correcte d White Blood Count June 08, 2025 3:09pm June 08, 2025 3:09pm 8.5 10 3/uL 4.0-11.0 Correcte d White Blood Count June 09, 2025 5:05am June 09, 2025 5:05am 8.3 10 3/uL 4.0-11.0 Correcte d White Blood Count June 10, 2025 5:03am June 10, 2025 5:03am 9.0 10 3/uL 4.0-11.0 Correcte d White Blood Count June 28, 2025 1:49pm June 28, 2025 1:49pm 7.5 10 3/uL 4.0-11.0 Correcte d White Blood Count June 29, 2025 5:54am June 29, 2025 5:54am 5.7 10 3/uL 4.0-11.0 Correcte d White Blood Count July 22, 2025 5:55am July 22, 2025 5:55am 6.1 10 3/uL 4.0-11.0 Correcte d White Blood Count July 31, 2025 8:18am July 31, 2025 9:22am 4.8 10*3/uL 3.8-11.6 [facility] [id number] [address] [facility] [address] Uncorrec gali WBC Count July 31, 2025 8:18am July 31, 2025 9:22am 4.8 10*3/uL 3.8-11.6 [facility] [id number] [address] [facility] [address] Red Blood Count July 31, 2025 8:18am July 31, 2025 9:22am 3.53 10*6/uL Below low normal 3.60-5.00 [facility] [id number] [address] [facility] [address] Hemoglob in July 31, 2025 8:18am July 31, 2025 9:22am 10.4 g/dL Below low normal 11.8-15.4 [facility] [id number] [address] [facility] [address] Hematocr it July 31, 2025 8:18am July 31, 2025 9:22am 31.7 % Below low normal 34.0-46.4 [facility] [id number] [address] [facility] [address] Mean Corpuscu lar Volume July 31, 2025 8:18am July 31, 2025 9:22am 89.6 fL 80-100 [facility] [id number] [address] [facility] [address] Mean Corpuscu lar Hemoglob in July 31, 2025 8:18am July 31, 2025 9:22am 29.4 pg 24.7-34.3 [facility] [id number] [address] [facility] [address] Mean Corpuscu lar Hemoglob in Concent July 31, 2025 8:18am July 31, 2025 9:22am 32.9 g/dL 32.0-35.0 [facility] [id number] [address] [facility] [address] Red Cell Distribu tion Width July 31, 2025 8:18am July 31, 2025 9:22am 17.0 % Above high normal 11.9-15.3 [facility] [id number] [address] [facility] [address] Platelet Count July 31, 2025 8:18am July 31, 2025 9:22am 185 10*3/uL 150-450 [facility] [id number] [address] [facility] [address] Mean Platelet Volume July 31, 2025 8:18am July 31, 2025 9:22am 8.9 fL 6.3-10.7 [facility] [id number] [address] [facility] [address] Monocyte Distribu tion Width July 29, 2025 11:04am July 29, 2025 11:27am 18.19 % 0.00-20.00 [facility] [id number] [address] [facility] [address] Neutroph ils (%) (Auto) July 31, 2025 8:18am July 31, 2025 9:22am 71.4 % . [facility] [id number] [address] [facility] [address] Lymphocy edith (%) (Auto) July 31, 2025 8:18am July 31, 2025 9:22am 17.9 % . [facility] [id number] [address] [facility] [address] Monocyte s (%) (Auto) July 31, 2025 8:18am July 31, 2025 9:22am 7.7 % . [facility] [id number] [address] [facility] [address] Eosinoph ils (%) (Auto) July 31, 2025 8:18am July 31, 2025 9:22am 1.5 % . [facility] [id number] [address] [facility] [address] Basophil s (%) (Auto) July 31, 2025 8:18am July 31, 2025 9:22am 1.5 % . [facility] [id number] [address] [facility] [address] Nucleate d RBC Relative Count (auto) July 31, 2025 8:18am July 31, 2025 9:22am 0.2 /100{WBC} 0-0.5 [facility] [id number] [address] [facility] [address] Neutroph ils # (Auto) July 31, 2025 8:18am July 31, 2025 9:22am 3.4 10*3/uL 1.8-7.7 [facility] [id number] [address] [facility] [address] Lymphocy edith # (Auto) July 31, 2025 8:18am July 31, 2025 9:22am 0.9 10*3/uL Below low normal 1.00-4.8 [facility] [id number] [address] [facility] [address] Monocyte s # (Auto) July 31, 2025 8:18am July 31, 2025 9:22am 0.4 10*3/uL 0.0-0.8 [facility] [id number] [address] [facility] [address] Eosinoph ils # (Auto) July 31, 2025 8:18am July 31, 2025 9:22am 0.1 10*3/uL 0.0-0.45 [facility] [id number] [address] [facility] [address] Basophil s # (Auto) July 31, 2025 8:18am July 31, 2025 9:22am 0.1 10*3/uL 0.0-0.2 [facility] [id number] [address] [facility] [address] Prothrom bin Time July 29, 2025 11:04am July 29, 2025 11:53am 15.8 s Above high normal 9.0-12.9 A hematocrit value greater than 55% may lead to inaccurate results in coagulation testing. Patients having hematocrit values >55% require a special collection tube for coagulation studies. Please contact the laboratory at [phone] for redraw instruction s. [facility] [id number] [address] [facility] [address] Prothrom b Time Internat ional Ratio July 29, 2025 11:04am July 29, 2025 11:53am 1.4 INR Therapeutic Range A) Pre- and Peroperativ e OAT started two weeks before surgery. NOT HIP SURGERY: 1.5 - 2.5 HIP SURGERY: 2 - 3B) Primary and secondary prevention of venous THROMBOSIS: 2 - 3C) Active venous thrombosis, pulmonary embolismand prevention of recurrent venous thrombosis: 2 - 3D) Prevention of arterial thromboembo lismincludi ng patients with mechanical heart valves: 3 - 4.5 [facility] [id number] [address] [facility] [address] Glucose Level June 15, 2025 2:00pm June 15, 2025 9:18pm 235 mg/dL Above high normal 70-100 ADA recommended reference rangeRandom Glucose Reference Range is dependent on time and content of last meal. Glucose of more than 200 mg/dL in a nonstressed , ambulatory subject supports the diagnosis of Diabetes Mellitus. [facility] [id number] [address] [facility] [address] Glucose Level August 01, 2025 9:39am August 01, 2025 10:29am 132 mg/dL Above high normal 70-100 ADA recommended reference rangeRandom Glucose Reference Range is dependent on time and content of last meal. Glucose of more than 200 mg/dL in a nonstressed , ambulatory subject supports the diagnosis of Diabetes Mellitus. [facility] [id number] [address] [facility] [address] Blood Urea Nitrogen June 15, 2025 2:00pm June 15, 2025 9:18pm 31 mg/dL Above high normal 7-25 [facility] [id number] [address] [facility] [address] Blood Urea Nitrogen August 01, 2025 9:39am August 01, 2025 10:29am 48 mg/dL Above high normal 06-05 [facility] [id number] [address] [facility] [address] Creatini ne June 15, 2025 2:00pm June 15, 2025 9:18pm 1.39 mg/dL Above high normal 0.60-1.20 [facility] [id number] [address] [facility] [address] Creatini ne August 01, 2025 9:39am August 01, 2025 10:29am 1.97 mg/dL Above high normal 0.60-1.20 [facility] [id number] [address] [facility] [address] Estimate d GFR (CKD-EPI ) June 15, 2025 2:00pm June 15, 2025 9:18pm 38.841 mL/Min [facility] [id number] [address] [place] 8342870 Estimate d GFR (CKD-EPI ) August 01, 2025 9:39am August 01, 2025 10:29am 25.401 mL/Min [facility] [id number] [address] [facility] [address] Sodium Level June 15, 2025 2:00pm June 15, 2025 9:18pm 141 mmol/L 136-145 [facility] [id number] [address] [facility] [address] Sodium Level August 01, 2025 9:39am August 01, 2025 10:29am 141 mmol/L 136-145 [facility] [id number] [address] [facility] [address] Potassiu m Level June 15, 2025 2:00pm June 15, 2025 9:18pm 3.7 mmol/L 3.5-5.1 [facility] [id number] [address] [place] [address] Potassiu m Level August 01, 2025 9:39am August 01, 2025 10:29am 4.9 mmol/L 3.5-5.1 [facility] [id number] [address] [place] [id number] Chloride Level June 15, 2025 2:00pm June 15, 2025 9:18pm 103 mmol/L 98-107 [facility] [id number] [address] [facility] [address] Chloride Level August 01, 2025 9:39am August 01, 2025 10:29am 107 mmol/L 98-107 [facility] [id number] [address] [place] 8342870 Carbon Dioxide Level June 15, 2025 2:00pm June 15, 2025 9:18pm 31.9 mmol/L Above high normal 21.0-31.0 [facility] [id number] [address] [facility] [address] Carbon Dioxide Level August 01, 2025 9:39am August 01, 2025 10:29am 26.0 mmol/L 21.0-31.0 [facility] [id number] [address] [facility] [address] Anion Gap June 15, 2025 2:00pm June 15, 2025 9:18pm 9.8 mEq/L 6.0-15.0 [facility] [id number] [address] [facility] [address] Anion Gap August 01, 2025 9:39am August 01, 2025 10:29am 12.9 mEq/L 6.0-15.0 [facility] [id number] [address] [facility] [address] Calcium Level June 15, 2025 2:00pm June 15, 2025 9:18pm 8.3 mg/dL Below low normal 8.6-10.3 [facility] [id number] [address] [facility] [address] Calcium Level August 01, 2025 9:39am August 01, 2025 10:29am 8.2 mg/dL Below low normal 8.6-10.3 [facility] [id number] [address] [facility] [address] Magnesiu m Level July 29, 2025 11:04am July 29, 2025 6:40pm 1.7 mg/dL Below low normal 1.9-2.7 [facility] [id number] [address] [facility] [address] Total Protein June 15, 2025 2:00pm June 15, 2025 9:18pm 6.3 g/dL Below low normal 6.4-8.9 [facility] [id number] [address] [place] [address] Albumin June 15, 2025 2:00pm June 15, 2025 9:18pm 2.8 g/dL Below low normal 3.5-5.7 [facility] [id number] [address] [place] [address] Globulin June 15, 2025 2:00pm June 15, 2025 9:18pm 3.5 g/dL [facility] [id number] [address] [place] [address] Albumin/ Globulin Ratio June 15, 2025 2:00pm June 15, 2025 9:18pm 0.8 [facility] [id number] [address] [place] [address] Total Bilirubi n June 15, 2025 2:00pm June 15, 2025 9:18pm 0.5 mg/dL 0.3-1.0 [facility] [id number] [address] [place] [address]398 Aspartat e Amino Transf (AST/SGO T) June 15, 2025 2:00pm June 15, 2025 9:18pm 13 U/L 13-39 [facility] [id number] [address] [place], [place] [address] Alanine Aminotra nsferase (ALT/SGP T) June 15, 2025 2:00pm June 15, 2025 9:18pm 11 U/L 7-52 [facility] [id number] [address] [place] [address]709 Alkaline Phosphat ase June 15, 2025 2:00pm June 15, 2025 9:18pm 103 U/L 34-104 [facility] [id number] [address] [place] [address]751 Troponin I High Sensitiv ity July 29, 2025 11:04am July 29, 2025 11:50am 13 ng/L 0-15 The Troponin units of report have been changed to meet the Chest Pain Accreditati on requirement , element EC5.M1l2. Troponin units are changed from pg/ml to ng/L. Also, the decimal is removed and results are in whole numbers. [facility] [id number] [address] [place], [place] [address] B-Type Natriure tic Peptide July 31, 2025 8:18am July 31, 2025 5:11pm 503.0 pg/mL Above high normal 5-100 [facility] [id number] [address] [place], [place] [address] Thyroid Stimulat ing Hormone 3rd Gen July 29, 2025 11:04am July 29, 2025 6:24pm 8.18 u[iU]/mL Above high normal 0.45-5.33 [facility] [id number] [address] [place], [place] [address] Pharmacy Creatini ne Clearanc e (Chem June 15, 2025 2:00pm June 15, 2025 9:18pm N/A [facility] [id number] [address] [place], [place] [address] Pharmacy Creatini ne Clearanc e (Chem August 01, 2025 9:39am August 01, 2025 10:29am 29.80 [facility] [id number] [address] [place], [place] [address] Bedside Glucose August 01, 2025 11:11am August 01, 2025 11:18am 136 mg/dL Random Glucose Reference Range is dependent on time and content of last meal. Glucose of more than 200 mg/dL in a nonstressed , ambulatory subject supports the diagnosis of Diabetes Mellitus. Point of Care testing Bedside Glucose Comment July 30, 2025 11:28am July 30, 2025 11:35am Glu2: cleaned meter Point of Care testing Microbiology Results Procedure Source Result Collection Date/Time Result Date/Time Result Comment Performing Site Anaerobe Identification Only June 08, 2025 3:09pm June 08, 2025 3:09pm Urine Culture Urine, Clean-Voided Midstream 2 Days June 02, 2025 12:30pm June 04, 2025 9:36am [facility] [id number] [address] [place], [place] [address] Diagnostic Imaging Reports Author Vargas Langston [facility] Authored July 29, 2025 11:42am Report Dictated Date/Time Dictated By Status Radiology Report July 29, 2025 11:42am Vargas Langston MD completed [facility] Main [address] [address] XRay Report Signed Patient: Kati Luevano MR#: [id number] : 1945 Acct:[id number] Age/Sex: 80 / F ADM Date: 5 Loc: ER Room: Type: [facility] ER Attending Dr: Copies to: Jesus Barbour DO~ Ordering Provider: Jesus Barbour DO Date of Service: 07/29/25 XR/XR chest 2V*: Shortness of Breath/Dyspnea PA AND LATERAL CHEST: CLINICAL HISTORY: Worsening shortness of breath COMPARISON: 07/22/2025 FINDINGS: Perihilar congestion and cardiomegaly. Interstitial thickening. Small right- sided and moderate left-sided effusions. No pneumothorax. XR/XR chest 2V* IMPRESSION: CHF with moderate left-sided effusion. Impression dictated by: Vargas Langston M.D. 07/29/2025 11:43 AM Dictation Location: [place] [address] Transcribed By: [facility] 07/29/25 1143 Dictated By: Vargas Langston MD 07/29/25 1142 Signed By: <Electronically signed by Vargas Langston MD in [place]> 07/29/25 1143 Author Vargas Langston [facility] Authored July 31, 2025 8:09pm Report Dictated Date/Time Dictated By Status Radiology Report July 31, 2025 8:09pm Vargas garcia MD [facility] Main [place] [address] [place] [address] XRay Report Signed Patient: Kati Luevano MR#: [id number] : 1945 Acct:[id number] Age/Sex: 80 / F ADM Date: 5 Loc: Room: [address] [place] [address] Type: ADM IN Attending Dr: Chasity Castro MD Copies to: Chasity Castro MD~ Ordering Provider: Chasity Castro MD Date of Service: 07/31/25 XR/XR chest 2V*: sob PA AND LATERAL CHEST: CLINICAL HISTORY: Shortness breath, chest pain COMPARISON: 07/29/2025 FINDINGS: Perihilar congestion and cardiomegaly. Interstitial thickening. Small right- sided and moderate left-sided effusions. No pneumothorax. XR/XR chest 2V* IMPRESSION: Mild progression of the CHF findings with effusions and edema Impression dictated by: Vargas Langston M.D. 07/31/2025 8:10 PM Dictation Location: [place] [address] Transcribed By: [facility] 07/31/252009 Dictated By: Vargas Langston MD 07/31/252008 Signed By: <Electronically signed by Vargas Langston MD in [place]> 07/31/252009 Vital Signs Vital Reading Result Reference Range Collection Date/Time Height 65 [in_i] May 21, 2025 11:08am [...] Mass Index) 44.7 kg/m2 May 122024 11:08am Height 65 [in_i] June 04, 2025 10:17am Weight 119.74 kg June 04, 2025 10:17am Heart Rate 57 /min 60-100 June 04, 2025 10:17am BP Systolic 161 mm[Hg] 100-140 June 04, 2025 10:17am BP Diastolic 71 mm[Hg] 60-100 June 04, 2025 10:17am BMI (Body Mass Index) 43.9 kg/m2 May 132024 10:17am Height 65 [in_i] July 20, 2025 2:19pm Weight 115.21 kg July 20, 2025 2:19pm Body Temperature 97.3 [degF] 97.6-99.0 July 202024 2:19pm Heart Rate 72 /min 60-100 July 20, 2025 2:19pm Oxygen saturation by Pulse oximetry 98 % 95-100 July 20, 2025 2:19pm BP Systolic 170 mm[Hg] 100-140 July 20, 2025 2:19pm BP Diastolic 73 mm[Hg] 60-100 July 20, 2025 2:19pm BMI (Body Mass Index) 42.3 kg/m2 2024 2:19pm Height 65 [in_i] July 30, 2025 12:56pm Weight 118.30 kg August 01, 2025 8:54am Body Temperature 97.6 [degF] 97.6-99.0 July 142024 8:56am Heart Rate 79 /min 60-100 August 01, 2025 8:56am Respiratory rate 16 /min 11-04July 142024 8:56am Oxygen saturation by Pulse oximetry 96 % 95-100 August 01, 2025 8:56am BP Systolic 162 mm[Hg] 100-140 August 01, 2025 8:56am BP Diastolic 84 mm[Hg] 60-100 August 01, 2025 8:56am Inhaled oxygen concentration 2 % July 30, 2025 8:00am Inhaled oxygen flow rate 2 L/min [facility] 2024 8:56am Height 65 [in_i] August 05, 2025 9:39am Weight 116.57 kg August 05, 2025 9:39am Heart Rate 67 /min 60-100 August 05, 2025 9:49am BP Systolic 176 mm[Hg] 100-140 August 05, 2025 9:49am BP Diastolic 90 mm[Hg] 60-100 August 05, 2025 9:49am BMI (Body Mass Index) 42.7 kg/m2 2024 9:39am Heart Rate 61 /min 60-100 August 17 1:20pm BP Systolic 144 mm[Hg] 100-140 August 17 1:20pm BP Diastolic 65 mm[Hg] 60-100 August 17 1:20pm Advance Directives Advance Directive Response Recorded Date/ Time Advance Directives No July 2:54pm Insurance Providers Guarantor Kati Luevano Address [address] [place] [address] [place] [address] Contact Info. Home Phone: Payer Policy Id Subscriber's Name Subscriber Id Effectiv e Date Expiration Date Medicare [id number] Kati Lueavno [id number] Encounters Encounter Location(s) Arrival/Admit Date Discharge /Depart Date Provider(s) Departed Physician/Provi claude Office Visit -[facility] May 21, 2025 10:52am May 21, 2025 11:36am Theodora Cuevas MD Non-patient / Non-visit -[facility] May 28, 2025 4:45am Paco Bryant MD Non-patient / Non-visit -[facility] May 29, 2025 5:24am Monica Stewart MD Non-patient / Non-visit -[facility] May 30, 2025 6:40am Monica Stewart MD Non-patient / Non-visit -[facility] May 31, 2025 5:50am Monica Stewart MD Departed Physician/Provi claude Office Visit -[facility] June 02, 2025 12:10pm June 02, 2025 12:32pm Theodora Cuevas MD Departed Referred -Lab [facility] June 02, 2025 12:30pm June 02, 2025 12:31pm Theodora Cuevas MD Departed Physician/Provi claude Office Visit -[facility] June 04, 2025 9:49am June 04, 2025 10:42am Theodora Cuevas MD Non-patient / Non-visit -[facility] June 08, 2025 3:09pm Dulce Medina DO Non-patient / Non-visit -[facility] June 09, 2025 5:05am Osbaldo Marlow MD Non-patient / Non-visit -[facility] June 10, 2025 5:03am Osbaldo Marlow MD Non-patient / Non-visit -[facility] June 10, 2025 9:18am Wandy Alvarez CMA Departed Clinical -Lab [facility] June 15, 2025 2:00pm June 15, 2025 2:01pm Theodora Cuevas MD Non-patient / Non-visit -[facility] June 19, 2025 5:18am Outside Provider Non-patient / Non-visit -[facility] June 22, 2025 9:34am Wandy Alvarez CMA Non-patient / Non-visit -[facility] June 28, 2025 1:49pm Dulce Medina DO Non-patient / Non-visit -[facility] June 29, 2025 5:54am Monica Stewart MD Non-patient / Non-visit -[facility] June 30, 2025 5:15am Monica Stewart MD Non-patient / Non-visit -[facility] July 01, 2025 11:13am Wnady Alvarez CMA Non-patient / Non-visit -[facility] July 01, 2025 1:34pm Wandy Alvarez CMA Departed Physician/Provi claude Office Visit -[facility] July 20, 2025 1:56pm July 20, 2025 2:53pm Theodora Cuevas MD Non-patient / Non-visit -[facility] July 22, 2025 5:55am Theodora Cuevas MD Non-patient / Non-visit -[facility] July 23, 2025 7:58am Monica Stewart MD Non-patient / Non-visit -[facility] July 24, 2025 8:06am Wandy Alvarez CMA Discharged Inpatient -[facility] July 29, 2025 12:56pm August 01, 2025 12:28pm Chasity Castro MD Non-patient / Non-visit -[facility] August 03, 2025 3:29pm Wandy Alvarez CMA Departed Physician/Provi claude Office Visit -[facility] August 05, 2025 9:32am August 05, 2025 10:09am Theodora Cuevas MD Departed Physician/Provi claude Office Visit -[facility] August 17, 2025 1:16pm August 17, 2025 1:53pm Vandana Dumont APRN Recent Diagnosis Onset Date Admit Date Fall against object Unknown May 21 10:52am GERD (gastroesophageal reflux disease) Unknown May 21, 2025 10:52am Dysuria Unknown June 02, 2025 12:10pm A-fib Unknown June 04, 2025 9:49am Confusion Unknown June 04, 2025 9:49am Fall against object Unknown June 04 9:49am Type 2 diabetes mellitus wit h hyperglycemia, with long-term current use of Unknown June 04, 2025 9:49am CHF (congestive heart failure) Unknown 2024 1:56pm CKD (chronic kidney disease), stage IV Unknown July 20, 2025 1:56pm Hypertension Unknown July 20 1:56pm Type 2 diabetes mellitus wit h diabetic chronic kidney disease Unknown July 20, 2025 1:56pm Type 2 diabetes mellitus wit h hyperglycemia, with long-term current use of Unknown July 20, 2025 1:56 pm Vitreous hemorrhage of right eye Unknown July 20, 2025 1:56pm Acute exacerbation of CHF (c ongestive heart failure) Unknown July 29, 2025 12:56pm CKD (chronic kidney disease) stage 3, GFR 30-59 ml/min Unknown July 29, 2025 12:56pm Diarrhea Unknown July 29, 2025 12:56pm IBS (irritable bowel syndrome) Unknown 2024 12:56pm Longstanding persistent atrial fibrillation Unkn own July 29, 2025 12:56pm Oxygen dependent Unknown August 05, 2025 9:32am Tremor Unknown August 05, 2025 9:32am Vitreous hemorrhage of right eye Unknown August 05, 2025 9:32am Acute exacerbation of CHF (c ongestive heart failure) Unknown August 05, 2025 9:32am CKD (chronic kidney disease) stage 3, GFR 30-59 ml/min Unknown August 05, 2025 9:32am IBS (irritable bowel syndrome) Unknown 2024 9:32am Longstanding persistent atrial fibrillation Unkn own August 05, 2025 9:32am Functional Status Observation Response Date Recorded Dressing Patient at Baseline August 012024 12:27pm Eating Patient at Baseline August 012024 12:27pm Bathing Patient at Baseline August 012024 12:27pm Disability Status Patient Not at Baseline 2024 3:55pm Mental Status Observation Response Date Recorded Cognitive Status Patient at Baseline July 142024 12:27pm Cognitive/Mental Status Assessments Assessments Diagnosis Onset Date Resolution Status Admit Date Fall against object acute May 21, 2025 [...] 9:49am CHF (congestive heart failure) acute July 20 1:56pm CKD (chronic kidney disease) , stage IV acute July 20 1:56pm Hypertension acute July 1:56pm Type 2 diabetes mellitus wit h diabetic chronic kidney disease acute July 20 1:56pm Type 2 diabetes mellitus wit h hyperglycemia, with long-term current use of acute July 20 1:56pm Vitreous hemorrhage of right eye acute July 20 1:56pm Acute exacerbation of CHF (congestive heart failure) resolved 2024 12:56pm CKD (chronic kidney disease) stage 3, GFR 30-59 ml/min resolved 2024 12:56pm Diarrhea resolved July 12:56pm IBS (irritable bowel syndrome) resolved July 29, 2025 12:56pm Longstanding persistent atrial fibrillation resolved July 292024 12:56pm Oxygen dependent acute Julembe r 2024 9:32am Tremor acute July 9:32am Vitreous hemorrhage of right eye acute August 05, 2025 9:32am Acute exacerbation of CHF (congestive heart failure) resolved 2024 9:32am CKD (chronic kidney disease) stage 3, GFR 30-59 ml/min resolved 2024 9:32am IBS (irritable bowel syndrome) resolved August 05, 2025 9:32am Longstanding persistent atrial fibrillation resolved August 052024 9:32am Plan of Treatment Author [facility] Authored June 01, 2025 8:29 am Famotidine refilled. Discussed option of HH for PT. Discussed importance of daily exercise and improvements in balance to prevent falls. Author [facility] Authored June 04, 2025 2:56 pm Est w Cardiology next week a nd will discuss and Watchman procedure postponed due to recent fall. . Basaglar refilled at 30 units. Sees diabetes clinic in June Reports home glucose readings have improved. Reassured that recent Urine culture was negative for infection which was done since she is home from hospital. She agrees to HH and PT. Author Theodora Cuevas [facility] Authored August 05, 2025 10:29am Referral placed to Neurology . Continue present medications. Will send discharge summary and records to [facility] Cardiology. Request soon appt. as above. Continue Xarelto Notified GI office, would be helpful if they could see her by a virtual visit. Followup w Dr. Rapp as scheduled Continue home oxygen. Author Theodora Cuevas [facility] Authored June 02, 2025 4:19 pm culture ordered. Author Theodora Cuevas [facility] Authored July 26, 2025 6:53pm Continue present meds. Have HH draw the below labs. Will get order to [facility] for an easier portable O2 Device. Followup w Optho as scheduled and other specialist, including cardiology and nephrology. She continues to decline referral to diabetic specialist. has been managing her diabetes w the CGM. 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 This started about 2 years ago now as we have not seen her in a year. She never followed up. Dr. Choe saw [...] would need to be done through the liquor rectifier. The patient does have benzodiazepines which are likely also helping the tremor. However the patient is on Xarelto therefore we cannot use Mysoline as it is an enzyme inducer and may increase the metabolism of the Xarelto making it less effective. This was all discussed with her again today. We did discuss other options are trial and error medications such as Lyrica or gabapentin or dopaminergic medications like amantadine. A She may use modifying techniques such as weighted silverware, utensil community recreation programmer and/or cups with lids on them. . Patient also complains of balance issues and gait ataxia. This started around 2015 right before she had surgery with Dr. Peterson. She states she [...] only hope it will improve some. . She is with her today. They have new complaint of some memory loss and visual hallucinations. This started last month. She did have UTI in May 2025. Shortly after she started the hallucinations. They are not scary or bothersome She needs to be checked for a UTI and PCP has sent order. She says her sleep is terrible. 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 FAther and sister had dementia, sister at 75, dad in late 80s She has been in hospital 5-6 times in the last 3 months for CHF. 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 . . . Plan Patient arrived 12 minutes late into her 20-minute appointment. She has not been seen since June 2024 nearly 14 months ago. Scheduled for tremor with and apparently wants to talk about her memory and hallucinations. 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 The patient is to call with any worsening of the condition or new symptoms. Future Tests Future scheduled test information is unavailable Pending Tests Pending diagnostic test information is unavailable Future Visits Future appointment information is unavailable Referrals to Other Providers Reason for Referral Referral Start Date Provider Provider Contact Information Provider Address in 2 w for ckd Ange Vergara MD Email: [email or web address] Work Phone: [phone] [facility] [address] [facility] [phone] Previously scheduled appointment. Theodora Cuevas MD Work Phone: [phone] [facility] [phone] R25.1 - Tremor, unspecified August 05, 2025 [facility] Work Phone: [phone] [phone] Future Procedures Procedure Name Ordered Date Scheduled Date Basic Metabolic Panel August 01, 2025 11:27 am Initiate Home Health August 01, 2025 9:49am Admit Status Order July 29, 2025 12:55pm July 29, 2025 12:56pm Discharge Order August 01, 2025 11:25am Sep tember 2024 11:25am Urine Culture June 02, 2025 12:56pm AMB POC Ur Dipstick June 02, 2025 4:38pm Basic Metabolic Panel July 20, 2025 2:39pm Future Medications Future medication information is unavailable Patient Instructions Instruction Admit Date Chronic kidney disease Low-potassium diet Fluid restriction Heart failure in adults - Discharge instructions How to put on and take off compression stockings Hope Pamphlet Know your Meds July 29, 2025 12:56pm Goals Acute Goals Author Authored Date Exhibit optimal tissue perfusion * Exhibits adequate oxygenation and ventilation * Exhibits adequate cardiac output * Regains stable cardiac rhythm * Maintains optimal activity level * Maintains balanced intake and output [facility] August 01, 2025 12:28pm Skin integrity intact [facility] August 01, 2025 12:28pm Fall Prevention 2022 [facility] August 01, 2025 12:28pm Maintain/increase activity levels * Understands factors that may lead to activity intolerance * Helps perform self care activities * Maintains maximum range of motion * Increase/regain muscle mass and strength * Maintains VS WNL during activity * Maintain intact skin integrity Updated: 12/25/2022 [facility] August 01, 2025 12:28pm Preferences Type Detail Treatment Intervention Code Status: Full Code
[2025-08-20] VITALS (71 sets, daily range): BP systolic 108–160; BP diastolic 47–100; PULSE 48–93; RESP 16; TEMP 32.3–36.6; O2SAT 74–99; BMI 42.6; BMI 43.8
--- NOTE | 2025-08-20 08:15 | XR_ITS ---
[facility] [place] [id number] Patient Name: JOE CALL MRN: [id number] date: 1945 Sex: F Assigned Patient Location: ER Current Patient Location: ED.MAIN Accession/Order Number: [id number] Exam Date: 08/20/2025 08:25 Report Date: 08/20/2025 08:48 At the request of: MAHI BROUSSARD DO Procedure: XR chest 1V PORTABLE AP ERECT CHEST 0830 hours CLINICAL HISTORY: Shortness of breath COMPARISON: 07/22/[address] 05/30/2025 There is similar pleural-parenchymal opacity at the inferior half of the left hemithorax. There is still increase in interstitial markings and mild groundglass density bilaterally. No developing pneumothorax is seen. The left cardiac border remains obscured though otherwise the cardiac and mediastinal contours are similar. The bony structures are osteopenic. There is slight dextroscoliotic curvature. XR/XR chest 1V IMPRESSION: CONTINUED PLEURAL-PARENCHYMAL CHANGES, GREATER ON THE LEFT. THIS MAY BE FAILURE WITH PLEURAL EFFUSIONS AND UNDERLYING LEFT BASILAR CONSOLIDATION. Impression dictated by: Paola Dexter M.D. 08/20/2025 8:48 AM Dictation Location: [place] [id number] Electronically authenticated by: [id number] Date: 08/20/2025 08:48
[2025-08-20] MEDS: FUROSEMIDE 40 MG/4 ML VIAL 80 MG IVP (08:22)
[2025-08-20 08:30] LABS: Hematocrit 29.8 % (36.0-48.0); Hemoglobin 9.4 g/dL (12.0-16.0); Immature Granulocytes Abs Auto 0.01 10^3/uL (0.00-0.03); Immature Granulocytes Pct Auto 0.2 % (0.0-0.5); Lymphocytes Absolute Auto 0.7 10^3/uL (1.2-3.8); Mean Corpuscular HGB Conc 31.5 g/dL (29.9-35.2); Mean Corpuscular Hemoglobin 29.4 pg (26.7-34.0); Mean Corpuscular Volume 93.1 fL (81.0-99.0); Platelet Count 170 10^3/uL (150-450); Red Blood Count 3.20 10^6/uL (4.20-5.40); White Blood Count 4.5 10^3/uL (4.0-11.0)
[2025-08-20 08:31] LABS: PCO2 VBG 54.5 mmHg (40.0-52.0); pH VBG 7.280 (7.330-7.430)
[2025-08-20 08:44] LABS: Magnesium 1.8 mg/dL (1.8-2.4)
--- OUTSIDE RECORDS SUMMARY | 2025-08-20 08:49 | XMS_ITS | CCD ---
Author Organization [facility] Care Team Providers Care Records Analysis Manager Name Role Phone UNKNOWN, PROVIDER Unavailable [...] Care Provider MD Shantel Steven Other Provider [phone] MD Eloina Hussein Attending Provider MD Eloina Hussein Referring Provider Tusc, DO Jorge Luis Ross Emergency Provider [phone] MD Shantel Steven Primary Care Provider Tupa, DO Jorge Luis M Emergency Provider MD Shantel Steven Primary Care Provider MD Shantel Steven Attending Provider [phone] MD Shantel Steven Attending Provider [phone] Shantel Steven MD Primary Care Provider [phone] LIZETT JACINTO Attending Unavailable SHANTEL STEVEN Referring [...] Other Provider Kavin Escobar DO Attending Provider [phone] Zhang Norwood DO Emergency Provider Daniele Jane DO Emergency Provider Shantel Cho MD Primary Care Provider Zhang Norwood DO Emergency Provider Daniele Jane DO Emergency Provider Shantel Cho MD Primary Care Provider Shantel Steven MD Primary Care Provider Jorge Calix DO Emergency Provider [phone] Jorge Calix DO Emergency Provider Unavailable Shantel Steven MD Primary Care Provider Cherie Rapp MD Attending Provider Cheng Aviles APRN Attending Provider Jorge Calix DO Emergency Provider Unavailable Wandy Alvarez CMA Attending Provider UnavailShantel Morales MD Attending Provider Shantel Steven MD Primary Care Provider Cheng Aviles APRN Attending Provider Wandy Alvarez CMA Attending Provider UnavailShantel Morales MD Attending Provider Analisa Bryant MD Attending Provider Monica Stewart MD Attending Provider Shantel Steven MD Primary Care Provider Cheng Aviles APRN Attending Provider Wandy Alvarez CMA Attending Provider UnavailJarred Palacios DO Attending Provider [phone] Osbaldo Marlow MD Attending Provider YAMEL PANDYA Attending Unavailable RICA KAPLAN Attending Unavailable SABRINA LUNA Attending Unavailable SABRINA LUNA Attending Unavailable SABRINA LUNA Attending Unavailable SABRINA LUNA Attending Unavailable YAMEL PANDYA Attending Unavailable YAMEL PANDYA Attending Unavailable Shantel Steven MD Primary Care Provider Shantel Steven MD Attending Provider [phone] Provider, Outside Attending Provider Unavailable Shantel Steven MD Primary Care Provider Cheng Aviles APRN Attending Provider Jorge Luis Zavala DO Emergency Provider Chasity Castro MD Admit Provider Gloria ESCOBAR, Chasity Attending Provider Shantel Steven Primary Care Unavailable Semaskiene, Chasity Admitting Unavailable Chasity Castro Attending Unavailable Shantel Steven E Primary Care Unavailable Mauri Chavira Admitting Unavailable Ange Verg[employer] Consulting Unavailable Kavin Escobar Attending UnavailRenetta Renteria Consulting Unavaila ble Shantel Steven Primary Care Unavailable Zhang Norwood Admitting Unavailable Zhang Norwood Attending Unavailable Daniele Jane Admitting Unavailable Daniele Jane Attending Unavailable Tenisha Shantel E Primary Care Unavailable Jorge Calix Admitting Unavailable Jorge Calix Attending Unavailable Tenisha Shantel E Primary Care Unavailable Steven Shantel E Admitting Unavailable Shantel Steven E Attending Unavailable Tenisha Shantel E Primary Care Unavailable Steven Shantel E Admitting Unavailable Shantel Steven E Attending Unavailable Ernesto Stevenia E Primary Care Unavailable Shantel Steven MD Primary Care Provider [phone] Wandy Alvarez CMA Attending Provider Unavaila ble Lizett Jacinto APRN Attending Provider Allergies Allergy Classification Reported Allergen(s) Allergy Type Date of Onset Reaction(s) Facility (1 source) Iodine (And Iodine Containting Drugs) Drug allergy (disorder) 03-04-20 12 [facility] (20 sources) Shellfish; Translations: [Shellfish] Food allergy (disorder) 03-04-20 12 rash, Eruption of skin (disorder) [facility] (20 sources) Sulfonamides (Antibiotic); Translations: [SULFA (SULFONAMIDE ANTIBIOTICS)] Drug allergy (disorder) 03-04-20 12 Rash [facility] (20 sources) Sulfacetamide Drug Allergy 02-15-20 24 diarrhea [facility] (20 sources) Contrast media; Translations: [contrast media (iodine-based)] Drug allergy 02-15-20 Unknown (qualifier value), Rash [facility] [place] (6 sources) Sulfonamides (Antibiotic); Translations: [sulfa drugs] Drug allergy Diarrhea (finding) [facility] (2 sources) Glucosamine Drug Allergy [facility] (2 sources) Iodine (And Iodine Containting Drugs) Drug allergy (disorder) 08-09-20 17 [facility] (11 sources) Contrast media Propensity to adverse reactions 11-18-[address] DYE [facility] [employer] Other (20 sources) Iodine; Translations: [IODINE] Drug Allergy 10-30-20 14 Other, Unknown [facility] [employer] Other (20 sources) Substance with sulfonamide structure and antibacterial mechanism of action (substance) Drug allergy 10-30-20 14 Unknown [facility] [employer] Other (11 sources) Dyes Propensity to adverse reactions Comment:CT Dyes,Dyes,IVP Dyes [facility] [employer] Other (20 sources) Shellfish; Translations: [SHELLFISH DERIVED] Allergy to substance 10-30-20 14 [facility] (20 sources) Iodinated Contrast Media; Translations: [IODINATED CONTRAST MEDIA] Allergy to substance 02-15-20 24 [facility] (13 sources) metFORMIN; Translations: [METFORMIN HCL] Drug Allergy 07-03-20 24 [facility] (6 sources) Chocolate Flavoring Agent (Non-Screening) Propensity to adverse reactions 01-17-20 23 [facility] [employer] Work Phone: (12 sources) Shellfish-Derive d Products Drug Intolerance 03-15-20 18 [facility] (7 sources) Chocolate; Translations: [CHOCOLATE FLAVOR] Propensity to adverse reactions 01-17-20 23 [facility] [employer] Work Phone: (1 source) Sulfacetamide Drug Allergy 08-05-20 [facility] (1 source) Sulfonamides (Antibiotic) Drug allergy (disorder) 08-05-20 [facility] (1 source) gabapentin Drug Allergy 08-17-20 25 [facility] Medications Current Medications Medication Drug Class(es) Dates [...] 25, 2024 3:46pm Start: 07-27-2022 End: 03-25-2024 ascorbic acid 226 mg / beta carotene 49111 unt / cuprous oxide 0.8 mg / dl-alpha tocopheryl acetate 200 unt / zinc oxide 34.8 mg oral capsule (10 sources) Vitamin C Start: 01-17-2024 Start: 01-17-2024 take 1 capsule by [facility] twice daily Vitamins A,C,B-Ynhq-Ksnufg (Preservision Areds) 4,296 mcg-226 mg-90 mg capsule [...] ) 0 Start Date: 03/07/21 Status: Ordered bacitracin zinc 0.4 unt/mg / hydrocortisone acetate 0.01 mg/mg / neomycin sulfate 0.0035 mg/mg / polymyxin b sulfate 10 unt/mg ophthalmic ointment (4 sources) Aminoglycoside Antibacterial, Polymyxin-class Antibacterial, Corticosteroid Start: 07-20-2025 bumetanide 1 mg oral tablet (20 sources) Loop Diuretic Start: 08-01-2025 Start: 06-18-2024 End: 06-18-2025 cholecalciferol 0.125 mg ora l capsule (20 sources) Vitamin D Start: 02-19-2025 Start: 06-05-2024 End: 02-19-2025 Start: 01-17-2024 End: 06-05-2024 take 1 capsule by mo ut every twenty-four hours Vitamin D3 125 MCG (5000 UT) 1 capsule Orally Once a day Active take 1 capsule by mo uth every twenty-four hours Vitamin D3 25 MCG (1000 UT) 1 capsule Orally Once a day Active cholestyramine resin 4000 mg powder for oral suspension (5 sources) Bile Acid Sequestrant Start: 03-07-2021 Questran 4 g/9 g ora l powder = 1 packet(s), Oral, Daily, # 30 EA, Refills(s) 11, Pharmacy: [id number], 165.1, cm, 03/07/21 13:49:00 EDT, Height/Length Dosing, 121.8, kg, 03/07/21 13:49:00 EDT, Weight Dosing Start Date: 03/07/21 Status: Ordered Start: 03-07-2021 Questran 4 g/9 g oral powder = 1 packet(s), Oral, Daily, # 30 EA, Refills(s) 11, Pharmacy: [id number], 165.1, cm, 03/07/21 13:49:00 EDT, Height/Length Dosing, 121.8, kg, 03/07/21 13:49:00 EDT, Weight Dosing Start Date: 03/07/21 Status: Ordered Dilt-CD 120 mg (14 sources) take 1 capsule by mouth once daily DULoxetine 20 mg delayed release oral capsule (20 sources) Serotonin and Norepinephrine Reuptake Inhibitor Start: 06-10-2025 Start: 02-19-2025 End: 04-21-2025 Start: 01-06-2025 End: 02-19-2025 Start: 12-09-2024 End: 01-06-2025 Fish Oils (20 sources) Start: 07-27-2022 Fish Oil Refil l(s) 0 Start Date: 07/27/22 Status: Ordered take 1 capsule by mouth once jagjit ly Fish Oil 1200 MG 1 capsule Orally Once a day Active take 1 capsule by mouth once jagjit ly Fish Oil 1000 MG 1 capsule Orally Once a day Active Flash Glucose Scanning Reade r (Freestyle Familia 2 [place]) misc (17 sources) Start: 09-10-2024 Flash Glucose Scanning [place] (Freestyle Familia 2 [place]) misc Active 0 .Route September 10, 2024 8:12am As directed Start: 09-10-2024 Flash Glucose Scanning [place] (Freestyle Familia 2 [place]) misc Active 0 .Route September 10, 2024 7:12am As directed Start: 07-16-2024 End: 09-10-2024 Flash Glucose Scanning Reade r (Freestyle Familia 2 [place]) misc Discontinued 0 .Route July 16, 2024 12:00am September 10, 2024 8:13am As directed Start: 07-16-2024 End: 09-10-2024 Flash Glucose Scanning Reade r (Freestyle Familia 2 [place]) misc Discontinued 0 .Route July 15, 2024 11:00pm September 10, 2024 7:13am As directed Start: 07-16-2024 Flash Glucose Scanning [place] (Freestyle Familia 2 [place]) misc Active 0 .Route July 16, 2024 [...] Familia 2 Sensor) kit Discontinued 0 .Route May 06, 2024 11:00pm July 17, 2024 [...] sources) Opioid Agonist metoprolol tartrate 25 mg oral tablet (20 sources) beta-Adrenergi c Khadijah Start: 06-10-2025 Start: 08-12-2024 End: 10-20-2024 [...] capsule (20 sources) Proton Pump Inhibitor Start: 04-21-2025 Start: 01-06-2025 End: 04-21-2025 Start: 12-09-2024 End: [...] 0 Start Date: 07/27/22 Status: Ordered rivaroxaban 15 mg oral tablet (20 sources) Factor Xa Inhibitor Start: 08-01-2025 Start: 02-19-2025 End: 08-01-2025 Start: 06-12-2021 End: 02-09-2025 take 0.5 tablet by out once daily Xarelto 10 MG 1/2 tablet Orally Once a day for 90 days Active Selenium 200 MCG (4 sources) take 1 tablet by mouth once daily Selenium 200 MCG 1 tablet Orally Once a day Active triamcinolone acetonide 1 mg/ml topical cream (20 sources) Corticosteroid Start: 07-20-2025 End: 07-29-2025 Start: 04-16-2025 End: 06-10-2025 True Metrix Blood Glucose Test - (5 [...] capsule Orally Once a day Active Vitamins A,C,Y-Mtxa-Rgguay (Preservision Areds) 4,296 mcg-226 mg-90 mg capsule (18 sources) Start: 01-17-2024 take 1 capsule by mouth twice daily Vitamins A,C,T-Avwk-Zhbmuz (Preservision Areds) 4,296 mcg-226 mg-90 mg capsule Active 1 CAP PO Twice daily January 17, 2024 12:00am Start: 01-17-2024 take 1 capsule by mo uth twice daily Vitamins A,C,H-Hsgt-Myiaca (Preservision Areds) 4,296 mcg-226 mg-90 mg capsule Active 1 CAP PO Twice daily January 17, 2024 1:00am (20 sources) Start: 08-11-2025 Start: 07-27-2025 End: 08-11-2025 Start: 07-27-2025 Start: 07-20-2025 Start: 05-29-2025 End: 07-20-2025 Start: 05-29-2025 Start: 04-20-2025 End: 05-29-2025 Start: [...] needed for pain June 07, 2024 June 07 2024 7:30am Start: 06-07-2024 End: 06-07-2024 take [...] 12, 2021 12:00am June 19, 2021 3:13am [id number] 200 actuat albuter ol 0.09 mg/actuat metered [...] at bedtime Orally Once a day Not-Taking amLODIPine 5 mg oral tablet (13 sources) Dihydropyridine Calcium Channel Khadijah Start: 025 End: 025 amylase [id number] unt / lipase 06433 unt / protease 79327 unt delayed release oral capsule (20 sources) Start: 021 End: 021 Start: 06-11-2021 End: 06-19-2021 Ovqgdm-Wlrrvvre-Waugazi (Cre on) 24,000-76,000 -120,000 unit capsule,delayed release(DR/EC) Discontinued 1 - 2 CAP PO 1-2 TIMES DAILY June 11, 2021 12:00am June 19, 2021 3:12am Start: 05-10-2021 Crebonnie 24,000 u nits oral delayed release capsule See Instructions, take 3 caps with each meal and 2 caps with each snack., # 390 caplet(s), Refills(s) 0, Pharmacy: [id number], 165.1, cm, 04/18/21 13:02:00 EDT, Height/Length [...] 01-17-2024 End: 04-03-2024 take 1 capsule by [facility] every twenty-four hours Biotin 5 MG 1 capsule Orally Once a day Active busPIRone hydrochloride 5 mg oral tablet (20 [...] 11-03-2024 ciprofloxacin 250 mg oral ta blet (20 sources) Quinolone Antimicrobial Start: 07-21-2024 End: 10-16-2024 dapagliflozin 10 mg oral tab let (20 sources) Sodium-Glucose Cotransporter 2 Inhibitor Start: 01-22-2024 End: 04-03-2024 FARXIGA Active Dapagliflozin Pr opanediol 10 MG 1 tablet once a day Active diclofenac sodium 0.01 mg/mg topical gel (20 sources) Nonsteroidal Anti-inflammatory Drug Start: 10-20-2024 End: 11-03-2024 24 hr dilTIAZem hydrochlorid e 120 mg extended release oral tablet (20 sources) Calcium Channel Khadijah Start: 02-19-2025 End: 06-04-2025 Start: 07-27-2022 take 1 capsule by [facility] once daily diltiazem 120 mg oral capsule, extended release 120 mg = 1 cap(s), Oral, Daily, Refills(s) 0 Start Date: 07/27/22 Status: Ordered Start: 06-19-2021 End: 02-09-2025 End: 07-22-2024 take 1 tablet by mouth in the morning dilTIAZem (Cardizem) 120 MG immediate release tablet Take 120 mg by mouth in the morning. 07/22/2024 Discontinued (Duplicate order) take 1 capsule by [facility] every twelve hours dilTIAZem HCl ER 120 MG 1 capsule Orally Twice a day Active Diphenoxylate-Atropine 2.5-0.025 mg tablet (4 sources) Start: 02-09-2025 End: 02-09-2025 take 1 tablet by mouth every six hours as needed Diphenoxylate-Atropine 2.5-0.025 mg tablet Discontinued 1 TAB PO Every 6 hours as needed February 09, 2025 12:00am February 09, 2025 2:51pm famotidine 20 mg oral tablet (20 sources) Histamine-2 Receptor Antagonist Start: 03-05-2025 End: 08-01-2025 Start: 03-05-2025 End: 05-21-2025 take 1 tablet [...] a day for 30 days Dec, Active fluconazole 100 mg oral tabl et (20 sources) Azole Antifungal Start: 06-12-2021 End: 01-17-2024 furosemide 40 mg oral tablet (20 sources) Loop Diuretic Start: 10-20-2024 End: 08-01-2025 Start: 10-20-2024 End: 02-19-2025 Furosemide 40 mg [...] aspart, human 1 00 unt/ml pen injector (20 sources) Insulin Analog Start: 06-12-2021 End: 01-24-2024 [...] before bedtime. 06/13/2024 Active Start: 06-05-2024 End: 07-29-2025 Start: 06-05-2024 End: 04-16-2025 Insulin Glargine (Basaglar [...] g oral tablet (20 sources) l-Thyroxine Start: 02-10-2025 End: 07-23-2025 Start: 02-10-2025 End: 03-05-2025 take 1 tablet [...] Active magnesium oxide 400 mg oral tablet (18 sources) Start: 02-09-2025 End: 03-12-2025 meloxicam 15 [...] Discontinued 500 MG PO Three times daily 30 January 29, 2024 12:00am January 30, 2024 12:56pm Start: 07-23-2023 take 1 tablet by joesph th every eight hours metroNIDAZOLE 500 MG 1 tablet Orally Three times a day for 10 days Jul, Active Start: 03-07-2023 take 1 tablet by joesph th every eight hours nitrofurantoin, macrocrystal s 100 mg oral capsule (13 sources) Nitrofuran Antibacterial Start: 03-24-2025 End: 04-21-2025 [...] 2024 12:06pm July 16, 2024 10:36am Nystatin 850442 UNIT/GM 1 application Externally Twice a day for 10 days Active Nystatin 443105 UNIT/GM 1 application Externally Twice a day for 10 days Active nystatin 263979 unt/ml / triamcinolone acetonide 1 mg/ml topical [...] June 05, 2024 11:06am swish and swallow [place] 1-Fjm-Fox-Fish Oil (Fish Oil) 1,000 mg (120 mg-180 mg) capsule (19 sources) Start: 01-17-2024 End: 04-03-2024 take 1 capsule by mouth once daily [place] 0-Prf-Fhr-Fish Oil (Fish Oil) 1,000 mg (120 mg-180 mg) capsule Discontinued 1 CAP PO Daily January 17, 2024 12:00am April 03, 2024 10:49am Start: 01-17-2024 End: 04-03-2024 take 1 capsule by mouth once daily [place] 8-Jtf-Xub-Fish Oil (Fish Oil) 1,000 mg (120 mg-180 mg) capsule Discontinued 1 CAP PO Daily January 17, 2024 1:00am April 03, 2024 11:49am Start: 01-17-2024 take 1 capsule by [facility] once daily [place] 3-Jab-Hiq-Fish Oil (Fish Oil) 1,000 mg (120 mg-180 mg) capsule Active 1 CAP PO Daily January 17, 2024 1:00am 24 hr oxybutynin chloride 10 mg extended release oral tablet (20 sources) Cholinergic Muscarinic Antagonist Start: 02-15-2024 End: 06-05-2024 potassium chloride 20 meq extended release oral tablet (20 sources) Start: 07-01-2025 End: 08-01-2025 Start: 02-09-2025 End: 02-19-2025 propranolol hydrochloride 40 mg oral tablet (20 sources) beta-Adrenergic Khadijah Start: 03-05-2025 End: 06-04-2025 Start: 12-26-2024 End: 03-05-2025 selenomethionine 0.2 mg oral tablet (20 sources) Start: 01-17-2024 End: 04-03-2024 sodium chloride 0.111 meq/ml nasal spray (20 sources) Start: 10-25-2024 End: 11-03-2024 spironolactone 50 [...] failure syndrome] Onset: 4 Episodic Administrative/social admission (5 sources) Patient encounter status; Translations: [Dietary counseling and surveillance] 06-25-2025 Episodic Allergic reactions (17 sources) Contact dermatitis; Translations: [Unspecified contact dermatitis, [...] Episodic Conditions associated with dizziness or vertigo (15 sources) Dizziness; Translations: [Dizziness and giddiness] Onset: 5 03-12-2025 Episodic Congestive heart failure; nonhypertensive (20 sources) Acute on chronic diastolic heart failure; Translations: [Acute on chronic diastolic (congestive) heart failure] Onset: 3 Chronic Coronary atherosclerosis and other heart disease (20 sources) Coronary arteriosclerosis; Translations: [Atherosclerotic heart disease of [place] coronary artery without angina pectoris] Onset: 2 [...] 07-03-2024 Chronic E Codes: Struck by; against (20 sources) Fall; Translations: [Striking against unspecified object [...] sources) Long-term current use of insulin; Translations: [vehicle check in clerk (current) use of insulin] Onset: 4 Resolved: 4 01-17-2024 Episodic Other aftercare (1 source) Other food preparation kitchen aide (current) drug therapy; Translations: [OTH SENIOR CARE CURRENT DRUG THERAPY] Onset: 3 Episodic Other aftercare (1 source) vehicle check in clerk (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 anticoagulants; Translations: [SENIOR CARE [...] UNS] Onset: 3 Chronic Other circulatory disease (20 sources) Elevated blood pressure; Translations: [Elevated blood-pressure [...] Onset: 2 07-03-2024 Chronic Other eye disorders (9 sources) Hemorrhage of right vitreous body; Translations: [Vitreous hemorrhage, right eye] 07-26-2025 Chronic Other eye disorders (20 sources) Chalazion; Translations: [Chalazion right eye, unspecified eyelid] 01-18-2024 Episodic Other eye disorders (3 sources) Chalazion right eye, unspecified eyelid; Translations: [Chalazion] 01-18-2024 Episodic Other eye disorders (20 sources) Chalazion of right eyelid; Translations: [Chalazion right eye, unspecified eyelid] Onset: 4 07-03-2024 Episodic Other gastrointestinal disorders (20 sources) Irritable bowel syndrome; Translations: [Irritable bowel syndrome without diarrhea] 03-10-2025 Chronic Other gastrointestinal disorders (6 sources) Irritable bowel syndrome without diarrhea; Translations: [Irritable bowel syndrome] Onset: 5 03-10-2025 Chronic Other gastrointestinal disorders (20 sources) Incontinence of feces; Translations: [Full incontinence of feces] Episodic Other gastrointestinal disorders (20 sources) Constipation; Translations: [Constipation, unspecified] Episodic Other gastrointestinal disorders (20 sources) Diarrhea; Translations: [Diarrhea, unspecified] 02-09-2025 Episodic Other gastrointestinal disorders (20 sources) Diarrhea, unspecified; Translations: [Diarrhea] Onset: 2 Episodic Other gastrointestinal disorders (20 sources) Swollen abdomen; Translations: [Generalized intra-abdominal and pelvic swelling, mass and lump] Onset: 4 05-07-2024 Episodic Other gastrointestinal disorders (20 sources) Generalized intra-abdominal and pelvic swelling, mass and lump; Translations: [Abdominal or pelvic swelling, mass, or lump, generalized] 05-07-2024 Episodic Other gastrointestinal disorders (20 sources) Abdominal bloating; Translations: [Abdominal distension (gaseous)] [...] 07-03-2024 Chronic Other inflammatory condition of skin (20 sources) Seborrheic dermatitis of scalp; Translations: [Seborrhea [...] Chronic Other nutritional; endocrine; and metabolic disorders (17 sources) Severe obesity; Translations: [Class 3 severe [...] source) Other amnesia Episodic Residual codes; unclassified (20 sources) Delirium; Translations: [Disorientation, unspecified] 10-28-2024 Episodic Residual codes; unclassified (12 sources) Confusional state; Translations: [Disorientation, unspecified] 06-04-2025 Episodic Residual codes; unclassified (1 source) Hallucinations; Translations: [Hallucinations, unspecified] 08-11-2025 Episodic Respiratory failure; insufficiency; arrest (adult) (2 sources) Dependence on supplemental oxygen; Translations: [Dependence on supplemental oxygen] 08-05-2025 Chronic Respiratory failure; insufficiency; arrest (adult) (1 source) Acute respiratory failure; Translations: [Acute respiratory failure with hypoxia] 08-11-2025 Episodic Retinal detachments; defects; vascular occlusion; and [...] EXPOS COVID-19] Onset: 3 Unclassified (1 source) Longstanding persistent atrial fibrillation; Translations: [Longstanding persistent atrial fibrillation] Onset: 5 Urinary tract infections (20 sources) Urinary tract infectious disease; Translations: [Urinary tract infection, site not specified] Onset: 4 Resolved: 4 05-07-2024 Episodic Viral infection (20 sources) Disease caused by 2019-nCoV; Translations: [COVID-19] [...] 01-16-2023 07-27-2022 Episodic Other aftercare (5 sources) vehicle check in clerk (current) use of insulin; Translations: [FIELD INSTALLATION TECHNICIAN CURRENT USE OF INSULIN] Onset: 01-16-2023 Episodic [...] Test Name Value Interpretation Reference Range Facility Basic Metabolic Panelon 07-14 Creatinine Clr Calc Pharmacy 29.80 Normal [facility] Comment on above: Result Comment: PERF ORMED BY: [place] [address] PATHOLOGIST DELICATESSEN CLERK SIMON LINTON M.D. Performed By: #### B TICKET MAKER, HS TROP, PT, CBC, BMP #### [address] GFR/1.73 sq M.predicted MDRD (S/P/Bld) [Vol rate/Area] 25.401 mL/min/{1.73_m2} Normal [facility] Comment on above: Performed By: #### B TICKET MAKER, HS TROP, PT, CBC, BMP #### [address] Calcium [Mass/volume] in Ser um or PlasmaOrdered By: Chasity Castro on 08-01-2025 Calcium [Mass/Vol] 8.2 mg/dL Low 8.6-10.3 [facility] Comment on above: Performed By: #### B TICKET MAKER, HS TROP, PT, CBC, BMP #### [address] Capillary blood glucose wander urement by glucometer (mass/volume)Ordered By: Chasity Castro on 08-01-2025 Glucose [Mass/Vol] 136 mg/dL [facility] Comment on above: Result Comment: [facility] Glucose Reference Range is dependent on time and content of last meal. Glucose of more than 200 mg/dL in a nonstressed, ambulatory subject supports the diagnosis of Diabetes Mellitus. PERFORMED BY: [place] [address] PATHOLOGIST DELICATESSEN CLERK SIMON LINTON M.D. Performed By: #### B TICKET MAKER, HS TROP, PT, CBC, BMP #### [facility] [address] [place] [address] Carbon dioxide, total [Moles /volume] in Serum or PlasmaOrdered By: Chasity Castro on 08-01-2025 CO2 [Moles/Vol] 26.0 mmol/L 21.0-31.0 [facility] Comment on above: Performed By: #### B TICKET MAKER, HS TROP, PT, CBC, BMP #### [facility] [address] [place] [address] [place] Chloride [Moles/volume] in S oziel or PlasmaOrdered By: Chasity Castro on 08-01-2025 Chloride [Moles/Vol] 107 mmol/L 98-107 [facility] Comment on above: Performed By: #### B TICKET MAKER, HS TROP, PT, CBC, BMP #### [facility] [address] [place] [address] [place] Creatinine [Mass/volume] in Serum or PlasmaOrdered By: Chasity Castro on 08-01-2025 Creatinine [Mass/Vol] 1.97 mg/dL High 0.60-1.20 [facility] Comment on above: Performed By: #### B TICKET MAKER, HS TROP, PT, CBC, BMP #### [facility] [address] [place] [address] [place] Glomerular filtration rate [ Volume Rate/Area] in Serum, Plasma or Blood by CreatinineOrdered By: Chasity Castro on 08-01-2025 Glomerular filtration rate [Volume Rate/Area] in Serum, Plasma or Blood by Creatinine 25.401 mL/Min [facility] Glucose Poct Glucometerson 0 08-01-2025 Glucose [Mass/Vol] 110 mg/dL Normal [facility] Comment on above: Result Comment: [place] om Glucose Reference Range is dependent on time and content of last meal. Glucose of more than 200 mg/dL in a nonstressed, ambulatory subject supports the diagnosis of Diabetes Mellitus. PERFORMED BY: [place] [address] PATHOLOGIST DELICATESSEN CLERK SIMON LINTON M.D. Performed By: #### B MP, CBC #### [address] Glucose [Mass/volume] in Ser um or PlasmaOrdered By: Chasity Castro on 08-01-2025 Glucose [Mass/Vol] 132 mg/dL High 70-100 [facility] Comment on above: Result Comment: [place] Glucose Reference Range is dependent on time and content of last meal. Glucose of more than 200 mg/dL in a nonstressed, ambulatory subject supports the diagnosis of Diabetes Mellitus. ADA recommended reference range Performed By: #### B TICKET MAKER, HS TROP, PT, CBC, BMP #### [address] No Panel InformationOrdered By: Chasity Castro on 08-01-2025 29.80 [facility] Potassium [Moles/volume] in Serum or PlasmaOrdered By: Chasity Castro on 08-01-2025 Potassium [Moles/Vol] 4.9 mmol/L 3.5-5.1 [facility] Comment on above: Performed By: #### B TICKET MAKER, HS TROP, PT, CBC, BMP #### [address] Serum or plasma anion gap de terminationOrdered By: Chasity Castro on 08-01-2025 Anion gap [Moles/Vol] 12.9 mmol/L 6.0-15.0 [facility] Comment on above: Performed By: #### B TICKET MAKER, HS TROP, PT, CBC, BMP #### [address] Sodium [Moles/volume] in Ser um or PlasmaOrdered By: Chasity Castro on 08-01-2025 Sodium [Moles/Vol] 141 mmol/L 136-145 [facility] Comment on above: Performed By: #### B TICKET MAKER, HS TROP, PT, CBC, BMP #### [facility] [address] Urea nitrogen [Mass/volume] in Serum or PlasmaOrdered By: Chasity Castro on 08-01-2025 Urea nitrogen [Mass/Vol] 48 mg/dL High 7-25 [facility] Comment on above: Performed By: #### B TICKET MAKER, HS TROP, PT, CBC, BMP #### [facility] [address] BNP ser/plasOrdered By: Chasity Castro on 07-31-2025 Natriuretic peptide B (Bld) [Mass/Vol] 503.0 pg/mL High 5-100 [facility] Comment on above: Order Comment: Comme nt add Result Comment: PERF ORMED BY: [place] [address] PATHOLOGIST DELICATESSEN CLERK SIMON LINTON M.D. Performed By: #### B TICKET MAKER, HS TROP, PT, CBC, BMP #### [facility] [address] Basic Metabolic Panelon 07-13 Anion gap [Moles/Vol] 10.6 mmol/L Normal 6.0-15.0 [facility] Comment on above: Performed By: #### B MP, CBC #### [facility] [address] Calcium [Mass/Vol] 8.1 mg/dL Low 8.6-10.3 [facility] Comment on above: Performed By: #### B MP, CBC #### [facility] [address] [place] [address] [place] Chloride [Moles/Vol] 110 mmol/L High 98-107 [facility] Comment on above: Performed By: #### B MP, CBC #### [place] [address] [place] CO2 [Moles/Vol] 27.9 mmol/L Normal 21.0-31.0 [facility] Comment on above: Performed By: #### B MP, CBC #### [address] Creatinine [Mass/Vol] 1.86 mg/dL High 0.60-1.20 [facility] Comment on above: Performed By: #### B MP, CBC #### [place] [address] [place] Creatinine Clr Calc Pharmacy 31.39 Normal [facility] Comment on above: Result Comment: PERF ORMED BY: [place] [address] PATHOLOGIST DELICATESSEN CLERK SIMON LINTON M.D. Performed By: #### B MP, CBC #### [place] [address] [place] GFR/1.73 sq M.predicted MDRD (S/P/Bld) [Vol rate/Area] 27.214 mL/min/{1.73_m2} Normal [facility] Comment on above: Performed By: #### B MP, CBC #### [address] Glucose [Mass/Vol] 98 mg/dL Normal 70-100 [facility] Comment on above: Result Comment: [place] Glucose Reference Range is dependent on time and content of last meal. Glucose of more than 200 mg/dL in a nonstressed, ambulatory subject supports the diagnosis of Diabetes Mellitus. ADA recommended reference range Performed By: #### B MP, CBC #### [place] [address] [place] Potassium [Moles/Vol] 4.5 mmol/L Normal 3.5-5.1 [facility] Comment on above: Performed By: #### B MP, CBC #### [place] [address] [place] Sodium [Moles/Vol] 144 mmol/L Normal 136-145 [facility] Comment on above: Performed By: #### B MP, CBC #### [address] Urea nitrogen [Mass/Vol] 49 mg/dL High 7-25 [facility] Comment on above: Performed By: #### B MP, CBC #### [address] Basophils [#/volume] in Bloo d by Automated countOrdered By: Chasity Castro on 07-31-2025 Basophils (Bld) [#/Vol] 0.1 10*3/uL 0.0-0.2 [facility] Comment on above: Result Comment: PERF ORMED BY: [place] [address] PATHOLOGIST DELICATESSEN CLERK SIMON LINTON M.D. Performed By: #### B MP, CBC #### [address] Basophils/100 leukocytes in Blood by Automated countOrdered By: Chasity Castro on 07-31-2025 Basophils/100 WBC (Bld) 1.5 % . [facility] Comment on above: Performed By: #### B MP, CBC #### [address] Complete Blood Count Auto Di ffon 07-31-2025 Mean Corpuscular HGB Conc 32.9 g/dL Normal 32.0-35.0 [facility] Comment on above: Performed By: #### B MP, CBC #### [address] NRBC% 0.2 /100{WBC} Normal 0-0.5 [facility] Comment on above: Performed By: #### B MP, CBC #### [address] White Blood Count 4.8 [CFU]/mL Normal 3.8-11.6 [facility] Comment on above: Performed By: #### B MP, CBC #### [address] Eosinophils [#/volume] in Bl ood by Automated countOrdered By: Chasity Castro on 07-31-2025 Eosinophils (Bld) [#/Vol] 0.1 10*3/uL 0.0-0.45 [facility] Comment on above: Performed By: #### B MP, CBC #### [address] Eosinophils/100 leukocytes i n Blood by Automated countOrdered By: Chasity Castro on 07-31-2025 Eosinophils/100 WBC (Bld) 1.5 % . [facility] Comment on above: Performed By: #### B MP, CBC #### [address] Erythrocyte distribution wid th [Ratio] by Automated countOrdered By: Chasity Castro on 07-31-2025 Erythrocyte distribution width (RBC) [Ratio] 17.0 % High 11.9-15.3 [facility] Comment on above: Performed By: #### B MP, CBC #### [address] Erythrocytes [#/volume] in B lood by Automated countOrdered By: Chasity Castro on 07-31-2025 RBC (Bld) [#/Vol] 3.53 10*6/uL Low 3.60-5.00 [facility] Comment on above: Performed By: #### B MP, CBC #### [address] Glucose Poct Glucometerson 0 07-31-2025 Glucose [Mass/Vol] 115 mg/dL Normal [facility] Comment on above: Result Comment: [place] Glucose Reference Range is dependent on time and content of last meal. Glucose of more than 200 mg/dL in a nonstressed, ambulatory subject supports the diagnosis of Diabetes Mellitus. PERFORMED BY: [place] [address] PATHOLOGIST DELICATESSEN CLERK SIMON LINTON M.D. Performed By: #### B MP, CBC #### [address] Glucose [Mass/Vol] 122 mg/dL Normal [facility] Comment on above: Result Comment: [place] om Glucose Reference Range is dependent on time and content of last meal. Glucose of more than 200 mg/dL in a nonstressed, ambulatory subject supports the diagnosis of Diabetes Mellitus. PERFORMED BY: [place] [address] PATHOLOGIST DELICATESSEN CLERK SIMON LINTON M.D. Performed By: #### B TICKET MAKER, HS TROP, PT, CBC, BMP #### [address] Glucose [Mass/Vol] 143 mg/dL Normal [facility] Comment on above: Result Comment: [place] om Glucose Reference Range is dependent on time and content of last meal. Glucose of more than 200 mg/dL in a nonstressed, ambulatory subject supports the diagnosis of Diabetes Mellitus. PERFORMED BY: [place] [phone] PATHOLOGIST DELICATESSEN CLERK SIMON LINTON M.D. Performed By: #### B TICKET MAKER, HS TROP, PT, CBC, BMP #### [address] Glucose [Mass/Vol] 118 mg/dL Normal [facility] Comment on above: Result Comment: [place] om Glucose Reference Range is dependent on time and content of last meal. Glucose of more than 200 mg/dL in a nonstressed, ambulatory subject supports the diagnosis of Diabetes Mellitus. PERFORMED BY: [place] [address] PATHOLOGIST DELICATESSEN CLERK SIMON LINTON M.D. Performed By: #### B TICKET MAKER, HS TROP, PT, CBC, BMP #### [address] Hematocrit [Volume Fraction] of Blood by Automated countOrdered By: Chasity Castro on 07-31-2025 Hematocrit (Bld) [Volume fraction] 31.7 % Low 34.0-46.4 [facility] Comment on above: Performed By: #### B MP, CBC #### [facility] [address] [place] [address] [place] Hemoglobin [Mass/volume] in BloodOrdered By: Chasity Castro on 07-31-2025 Hemoglobin (Bld) [Mass/Vol] 10.4 g/dL Low 11.8-15.4 [facility] Comment on above: Performed By: #### B MP, CBC #### [facility] [address] Leukocytes [#/volume] correc gali for nucleated erythrocytes in Blood by Automated counOrdered By: Chasity Castro on 07-31-2025 WBC corrected for nucl RBC Auto (Bld) [#/Vol] 4.8 10*3/uL 3.8-11.6 [facility] Leukocytes [#/volume] in Blo od by Automated countOrdered By: Chasity Castro on 07-31-2025 WBC (Bld) [#/Vol] 4.8 10*3/uL 3.8-11.6 [facility] Comment on above: Performed By: #### B MP, CBC #### [facility] [address] [place] [address] [place] Lymphocytes [#/volume] in Bl ood by Automated countOrdered By: Chasity Castro on 07-31-2025 Lymphocytes (Bld) [#/Vol] 0.9 10*3/uL Low 1.00-4.8 [facility] Comment on above: Performed By: #### B MP, CBC #### [facility] [address] [place] [address] [place] Lymphocytes/100 leukocytes i n Blood by Automated countOrdered By: Chasity Castro on 07-31-2025 Lymphocytes/100 WBC (Bld) 17.9 % . [facility] Comment on above: Performed By: #### B MP, CBC #### [facility] [address] [place] [address] [place] MCH [Entitic mass] by Automa gali countOrdered By: Chasity Castro on 07-31-2025 MCH (RBC) [Entitic mass] 29.4 pg 24.7-34.3 [facility] Comment on above: Performed By: #### B MP, CBC #### [address] MCHC Auto (RBC) [Mass/Vol]Or dered By: Chasity Castro on 07-31-2025 MCHC (RBC) [Mass/Vol] 32.9 g/dL 32.0-35.0 [facility] MCV [Entitic volume] by Auto mated countOrdered By: Chasity Castro on 07-31-2025 MCV (RBC) [Entitic vol] 89.6 fL 80-100 [facility] Comment on above: Performed By: #### B MP, CBC #### [address] Monocytes [#/volume] in Bloo d by Automated countOrdered By: Chasity Castro on 07-31-2025 Monocytes (Bld) [#/Vol] 0.4 10*3/uL 0.0-0.8 [facility] Comment on above: Performed By: #### B MP, CBC #### [place] [address] [place] Monocytes/100 leukocytes in Blood by Automated countOrdered By: Chasity Castro on 07-31-2025 Monocytes/100 WBC (Bld) 7.7 % . [facility] Comment on above: Performed By: #### B MP, CBC #### [place] [address] [place] Neutrophils [#/volume] in Bl ood by Automated countOrdered By: Chasity Castro on 07-31-2025 Neutrophils (Bld) [#/Vol] 3.4 10*3/uL 1.8-7.7 [facility] Comment on above: Performed By: #### B MP, CBC #### [place] [address] [place] Neutrophils/100 leukocytes i n Blood by Automated countOrdered By: Chasity Castro on 07-31-2025 Neutrophils/100 WBC (Bld) 71.4 % . [facility] Comment on above: Performed By: #### B MP, CBC #### [facility] [address] [place] [address] [place] Nucleated erythrocytes [Pres ence] in Blood by Automated countOrdered By: Chasity Castro on 07-31-2025 Nucleated RBC Auto Ql (Bld) 0.2 /100{WBC} 0-0.5 [facility] Platelet mean volume [Entiti c volume] in Blood by Automated countOrdered By: Chasity Castro on 07-31-2025 Platelet mean volume (Bld) [Entitic vol] 8.9 fL 6.3-10.7 [facility] Comment on above: Performed By: #### B MP, CBC #### [facility] [address] [place] [address] Platelets [#/volume] in Bloo d by Automated countOrdered By: Chasity Castro on 07-31-2025 Platelets (Bld) [#/Vol] 185 10*3/uL 150-450 [facility] Comment on above: Performed By: #### B MP, CBC #### [facility] [address] [place] [address] X-ray reportOrdered By: Kirit Langston on 07-31-2025 Study report [facility] Work Phone: XR chest 2V*on 07-31-2025 XR chest 2V* [facility] [place] [address] [place] [address] XRay Report Signed Patient: Joe Call MR#: [id number] 0 : 1945 Acct:[id number] Age/Sex: 80 / F ADM Date: 07/29/25 Loc: Room: [address] [place] [address] Type: ADM IN Attending Dr: Chasity Castro MD Copies to: Chasity Castro MD Ordering Provider: Chasity Castro MD Date of Service: 07/31/25 XR/XR chest 2V*: sob PA AND LATERAL CHEST: CLINICAL HISTORY: Shortness breath, chest pain COMPARISON: 07/29/2025 FINDINGS: Perihilar congestion and cardiomegaly. Interstitial thickening. Small right-sided and moderate left-sided effusions. No pneumothorax. XR/XR chest 2V* IMPRESSION: Mild progression of the CHF findings with effusions and edema Impression dictated by: Vargas Langston M.D. 07/31/2025 8:10 PM Dictation Location: [facility]--29 Transcribed By: [facility] 07/31/252009 Dictated By: Vargas Langston MD 07/31/252008 Signed By: 07/31/252009 Normal [facility] Basic Metabolic Panelon 07-13 Anion gap [Moles/Vol] 10.6 mmol/L Normal 6.0-15.0 Th e [facility] Comment on above: Performed By: #### B MP, CBC #### [facility] [address] [place] [id number] [place] Calcium [Mass/Vol] 7.9 mg/dL Low 8.6-10.3 [facility] Comment on above: Performed By: #### B MP, CBC #### [facility] [address] [place] [id number] [place] Chloride [Moles/Vol] 110 mmol/L High 98-107 [facility] Comment on above: Performed By: #### B MP, CBC #### [facility] [address] [place] [address] [place] CO2 [Moles/Vol] 29.1 mmol/L Normal 21.0-31.0 [facility] Comment on above: Performed By: #### B MP, CBC #### [facility] [address] [place] [address] [place] Creatinine [Mass/Vol] 1.90 mg/dL High 0.60-1.20 [facility] Comment on above: Performed By: #### B MP, CBC #### [facility] [address] [place] [address] [place] Creatinine Clr Calc Pharmacy 31.06 Normal [facility] Comment on above: Result Comment: PERF ORMED BY: [place] [address] PATHOLOGIST DELICATESSEN CLERK SIMON LINTON M.D. Performed By: #### B MP, CBC #### [address] GFR/1.73 sq M.predicted MDRD (S/P/Bld) [Vol rate/Area] 26.528 mL/min/{1.73_m2} Normal [facility] Comment on above: Performed By: #### B MP, CBC #### [address] Glucose [Mass/Vol] 94 mg/dL Normal 70-100 [facility] Comment on above: Result Comment: [facility] Glucose Reference Range is dependent on time and content of last meal. Glucose of more than 200 mg/dL in a nonstressed, ambulatory subject supports the diagnosis of Diabetes Mellitus. ADA recommended reference range Performed By: #### B MP, CBC #### [address] Potassium [Moles/Vol] 4.7 mmol/L Normal 3.5-5.1 [facility] Comment on above: Performed By: #### B MP, CBC #### [address] Sodium [Moles/Vol] 145 mmol/L Normal 136-145 [facility] Comment on above: Performed By: #### B MP, CBC #### [address] Urea nitrogen [Mass/Vol] 52 mg/dL High 7-25 [facility] Comment on above: Performed By: #### B MP, CBC #### [address] Complete Blood Count Auto Di ffon 07-30-2025 Basophils (Bld) [#/Vol] 0.1 10*3/uL Normal 0.0-0.2 [facility] Comment on above: Result Comment: PERF ORMED BY: [place] [address] PATHOLOGIST DELICATESSEN CLERK SIMON LINTON M.D. Performed By: #### B MP, CBC #### [facility] [address] Basophils/100 WBC (Bld) 1.8 % Normal . [facility] Comment on above: Performed By: #### B MP, CBC #### [facility] [address] [place] [address] [place] Eosinophils (Bld) [#/Vol] 0.1 10*3/uL Normal 0.0-0.45 [facility] Comment on above: Performed By: #### B MP, CBC #### [facility] [address] Eosinophils/100 WBC (Bld) 1.6 % Normal . [facility] Comment on above: Performed By: #### B MP, CBC #### [address] Erythrocyte distribution width (RBC) [Ratio] 16.8 % High 11.9-15.3 [facility] Comment on above: Performed By: #### B MP, CBC #### [address] Hematocrit (Bld) [Volume fraction] 30.8 % Low 34.0-46.4 [facility] Comment on above: Performed By: #### B MP, CBC #### [place] [address] [place] Hemoglobin (Bld) [Mass/Vol] 10.0 g/dL Low 11.8-15.4 [facility] Comment on above: Performed By: #### B MP, CBC #### [facility] [address] [place] [address] [place] Lymphocytes (Bld) [#/Vol] 0.8 10*3/uL Low 1.00-4.8 [facility] Comment on above: Performed By: #### B MP, CBC #### [facility] [address] [place] [address] [place] Lymphocytes/100 WBC (Bld) 17.9 % Normal . [facility] Comment on above: Performed By: #### B MP, CBC #### [address] MCH (RBC) [Entitic mass] 29.4 pg Normal 24.7-34.3 [facility] Comment on above: Performed By: #### B MP, CBC #### [address] MCV (RBC) [Entitic vol] 90.9 fL Normal 80-100 [facility] Comment on above: Performed By: #### B MP, CBC #### [address] Mean Corpuscular HGB Conc 32.4 g/dL Normal 32.0-35.0 [facility] Comment on above: Performed By: #### B MP, CBC #### [address] Monocytes (Bld) [#/Vol] 0.4 10*3/uL Normal 0.0-0.8 [facility] Comment on above: Performed By: #### B MP, CBC #### [address] Monocytes/100 WBC (Bld) 8.9 % Normal . [facility] Comment on above: Performed By: #### B MP, CBC #### [address] Neutrophils (Bld) [#/Vol] 3.3 10*3/uL Normal 1.8-7.7 [facility] Comment on above: Performed By: #### B MP, CBC #### [place] [address] [place] Neutrophils/100 WBC (Bld) 69.8 % Normal . [facility] Comment on above: Performed By: #### B MP, CBC #### [address] NRBC% 0.1 /100{WBC} Normal 0-0.5 [facility] Comment on above: Performed By: #### B MP, CBC #### [facility] [address] Platelet mean volume (Bld) [Entitic vol] 9.0 fL Normal 6.3-10.7 [facility] Comment on above: Performed By: #### B MP, CBC #### [facility] [address] Platelets (Bld) [#/Vol] 185 10*3/uL Normal 150-450 [facility] Comment on above: Performed By: #### B MP, CBC #### [address] RBC (Bld) [#/Vol] 3.39 10*6/uL Low 3.60-5.00 [facility] Comment on above: Performed By: #### B MP, CBC #### [address] WBC (Bld) [#/Vol] 4.7 10*3/uL Normal 3.8-11.6 [facility] Comment on above: Performed By: #### B MP, CBC #### [address] White Blood Count 4.7 [CFU]/mL Normal 3.8-11.6 [facility] Comment on above: Performed By: #### B MP, CBC #### [address] ECH echo transthoracicon ECH echo transthoracic [facility] [place] [address] Echocardiogram Signed Patient: Joe Call MR#: [id number] 0 : 1945 Acct:[id number] Age/Sex: 80 / F ADM Date: 07/29/25 Loc: Room: [address] [place] [address] Type: ADM IN Attending Dr: Chasity Castro MD Ordering Provider: Chasity Castro MD Date of Service: 07/29/25 ECH/ECH echo transthoracic: chf Copies to: Yumiko Alex MD, [facility] Chasity Castro MD RVT BSA: 2.2 m2 BP: 132/76 mmHg HR: 74 Reason For Study: chf History: CHF MO AFib Bradycardia CKD HTN HLD DM [place] Interpretation Summary Moderate to severe concentric left ventricular hypertrophy. Ejection Fraction = 60-65%. A variety of Doppler measurements indicate impaired left ventricular relaxation, which is associated with grade I/IV or mild diastolic dysfunction. The left atrium appears moderately dilated. There is mild mitral stenosis. Mean gradient across the mitral valve 5 mmHg There is mild tricuspid regurgitation. The right ventricular systolic pressure is 55 mmHg. Right ventricular systolic pressure is consistent with moderate pulmonary hypertension. Moderate size left pleural effusion. There is no prior echocardiogram noted for this patient. Procedure/Quality: A two-dimensional transthoracic echocardiogram with color flow, Doppler and injection of contrast agent Definity was performed. The study was technically good in quality. There is no prior echocardiogram noted for this patient. Left Ventricle: The left ventricular size is normal. Moderate to severe concentric left ventricular hypertrophy. Left ventricular systolic function is normal. Ejection Fraction = 60-65%. A variety of Doppler measurements indicate impaired left ventricular relaxation, which is associated with grade I/IV or mild diastolic dysfunction. Mitral valve annulus tissue Doppler imaging is consistent with elevated left atrial pressure. Left Atrium: The left atrium appears moderately dilated. The atrial septum appears normal. Right Atrium: The right atrium appears normal in size. Right Ventricle: The right ventricular size, thickness and function are normal. Aortic Valve: The aortic valve is mildly calcified. No hemodynamically significant valvular aortic stenosis. Trace aortic regurgitation. Mitral Valve: The mitral valve is moderately sclerotic. There is moderate to severe mitral annular calcification. There is mild mitral stenosis. Mean gradient across the mitral valve 5 mmHg. There is trace mitral regurgitation. Tricuspid Valve: The tricuspid valve is normal in structure. There is mild tricuspid regurgitation. The right ventricular systolic pressure is 55 mmHg. Right ventricular systolic pressure is consistent with moderate pulmonary hypertension. Pulmonic Valve: The pulmonic valve is not well seen, but is grossly normal. Arteries: The aortic root is normal size. Pericardium/Pleura: No pericardial effusion seen. Moderate size left pleural effusion. IVC/Hepatic Veins: Mildly dilated inferior vena cava. Miscellaneous: No thrombus, vegetation or mass is seen. Measurements with Normals IVSd: 1.8 cm (0.7-1.1 cm)LVIDd: 3.0 cm (3.7-5.4 cm) LVPWd: 1.9 cm (0.7-1.1 cm)LVIDs: 2.0 cm (2.3-3.6 cm) LA dimension: 4.1 cm(2.3-4.0 cm)Ao root diam: 3.2 cm(2.0-3.6 cm) Doppler with Normals RVSP(TR): 107.9 mmHg (18-35mmHg) LV V1 max: 93.2 cm/sec (0.7-1.7m/s)MV E max ricardo: 168.0 cm/sec(0.8-1.3m/s) MV A max ricardo: 130.0 cm/sec(0.0-0.0m/s) MV E/A: 1.3 (<1.5) MMode/2D Measurements Calculations TAPSE: 1.9 cm RV Base: 4.5 cm FS: 34.4 % Ao root area: RV S Ricardo: RV Mid: 3.6 cm EDV(Teich): 36.4 ml 8.0 cm2 9.2 cm/sec RV Length: 6.9 cm ESV(Teich): 12.7 ml EF(Teich): 65.1 % __ LVOT diam: 1.9 cm LVLd ap4: 6.9 cm SV(MOD-sp4): 57.7 ml LAV(MOD-sp4): LVOT area: 2.8 cm2 EDV(MOD-sp4): 92.6 ml 102.0 ml LAV(MOD-sp2): LVLs ap4: 5.9 cm 102.0 ml ESV(MOD-sp4): 44.3 ml EF(MOD-sp4): 56.6 % __ LA A2 area: RA Volume: RA Volume Index: 29.3 cm2 47.1 ml 21.2 ml/m2 LA A4 area: 29.1 cm2 LA length (vol): 7.4 cm LA vol: 97.8 ml LA vol index: 44.0 ml/m2 Doppler Measurements Calculations MV dec time: MV V2 max: E/E' lat: 20.2 MV dec slope: 0.23 sec 159.0 cm/sec E/E' med: 28.8 736.0 cm/sec2 MV max P.1 mmHg MV V2 mean: 109.0 cm/sec MV mean P.0 mmHg MV V2 VTI: 54.4 cm MVA(VTI): 1.5 cm2 __ Ao V2 max: LV V1 max PG: TV max PG: TR max ricardo: 196.0 cm/sec 3.5 mmHg 93.0 mmHg 482.0 cm/sec Ao max PG: LV V1 mean PG: TR max P.9 mmHg 15.4 mmHg 2.0 mmHg RAP systole: 15.0 mmHg Ao mean PG: LV V1 mean: 9.0 mmHg 69.1 cm/sec Ao V2 mean: LV V1 VTI: 29.4 cm 137.0 cm/sec Ao V2 VTI: 60.5 cm SAMIRA(I,D): 1.4 cm2 SAMIRA(V,D): 1.3 cm2 Electronically signed by: YUMIKO ALEX MD, FAC (more content not included)... Normal [facility] Glucose Poct Glucometerson 0 07-30-2025 Glucose [Mass/Vol] 149 mg/dL Normal [facility] Comment on above: Result Comment: [facility] Glucose Reference Range is dependent on time and content of last meal. Glucose of more than 200 mg/dL in a nonstressed, ambulatory subject supports the diagnosis of Diabetes Mellitus. PERFORMED BY: [place] [address] PATHOLOGIST DELICATESSEN CLERK SIMON LINTON M.D. Performed By: #### B TICKET MAKER, HS TROP, PT, CBC, BMP #### [address] Glucose [Mass/Vol] 138 mg/dL Normal [facility] Comment on above: Result Comment: [facility] Glucose Reference Range is dependent on time and content of last meal. Glucose of more than 200 mg/dL in a nonstressed, ambulatory subject supports the diagnosis of Diabetes Mellitus. PERFORMED BY: [place] [address] PATHOLOGIST DELICATESSEN CLERK SIMON LINTON M.D. Performed By: #### G MICK #### Point of Care testing , Commemt1 Glu2: Cleaned Meter Normal [facility] Comment on above: Result Comment: PERF ORMED BY: [place] [address] PATHOLOGIST DELICATESSEN CLERK SIMON LINTON M.D. Performed By: #### B TICKET MAKER, HS TROP, PT, CBC, BMP #### [address] Glucose [Mass/Vol] 161 mg/dL Normal [facility] Comment on above: Result Comment: [facility] Glucose Reference Range is dependent on time and content of last meal. Glucose of more than 200 mg/dL in a nonstressed, ambulatory subject supports the diagnosis of Diabetes Mellitus. Performed By: #### B TICKET MAKER, HS TROP, PT, CBC, BMP #### [address] Commemt1 Glu2: Cleaned Meter Normal [facility] Comment on above: Result Comment: PERF ORMED BY: [place] [address] PATHOLOGIST DELICATESSEN CLERK SIMON LINTON M.D. Performed By: #### B TICKET MAKER, HS TROP, PT, CBC, BMP #### [address] Glucose [Mass/Vol] 99 mg/dL Normal [facility] Comment on above: Result Comment: [place] [facility] Glucose Reference Range is dependent on time and content of last meal. Glucose of more than 200 mg/dL in a nonstressed, ambulatory subject supports the diagnosis of Diabetes Mellitus. Performed By: #### B TICKET MAKER, HS TROP, PT, CBC, BMP #### [address] No Panel InformationOrdered By: Chasity Casrto on 07-30-2025 Glu2: cleaned meter [facility] BNP ser/plasOrdered By: Pilo Zavala on 07-29-2025 Natriuretic peptide B (Bld) [Mass/Vol] 709.0 pg/mL High 5-100 [facility] Comment on above: Result Comment: PERF ORMED BY: [place] [address] PATHOLOGIST DELICATESSEN CLERK SIMON LINTON M.D. Performed By: #### B TICKET MAKER, HS TROP, PT, CBC, BMP #### [address] Basic Metabolic Panelon 07-13 Creatinine Clr Calc Pharmacy 31.42 Normal [facility] Comment on above: Result Comment: PERF ORMED BY: [place] [address] PATHOLOGIST DELICATESSEN CLERK SIMON LINTON M.D. Performed By: #### B TICKET MAKER, HS TROP, PT, CBC, BMP #### [address] GFR/1.73 sq M.predicted MDRD (S/P/Bld) [Vol rate/Area] 27.569 mL/min/{1.73_m2} Normal [facility] Comment on above: Performed By: #### B TICKET MAKER, HS TROP, PT, CBC, BMP #### [facility] [address] [place] [address] [place] Basophils [#/volume] in Bloo d by Automated countOrdered By: Jorge Luis Zavala on 07-29-2025 Basophils (Bld) [#/Vol] 0.1 10*3/uL Normal 0.0-0.2 [facility] Comment on above: Result Comment: PERF ORMED BY: [place] [address] PATHOLOGIST DELICATESSEN CLERK SIMON LINTON M.D. Performed By: #### B TICKET MAKER, HS TROP, PT, CBC, BMP #### [address] [place] [address] [place] Basophils/100 leukocytes in Blood by Automated countOrdered By: Jorge Luis Angle on 07-29-2025 Basophils/100 WBC (Bld) 1.3 % Normal . [facility] Comment on above: Performed By: #### B TICKET MAKER, HS TROP, PT, CBC, BMP #### [address] Calcium [Mass/volume] in Ser um or PlasmaOrdered By: Jorge Luis Zavala on 07-29-2025 Calcium [Mass/Vol] 8.1 mg/dL Low 8.6-10.3 [facility] Comment on above: Performed By: #### B TICKET MAKER, HS TROP, PT, CBC, BMP #### [address] Capillary blood glucose wander urement by glucometer (mass/volume)Ordered By: Jorge Luis Zavala on 07-29-2025 Glucose [Mass/Vol] 72 mg/dL Normal [facility] Comment on above: Result Comment: [facility] Glucose Reference Range is dependent on time and content of last meal. Glucose of more than 200 mg/dL in a nonstressed, ambulatory subject supports the diagnosis of Diabetes Mellitus. Performed By: #### B TICKET MAKER, HS TROP, PT, CBC, BMP #### [place] [address] [place] Carbon dioxide, total [Moles /volume] in Serum or PlasmaOrdered By: Jorge Luis Zavala on 07-29-2025 CO2 [Moles/Vol] 28.8 mmol/L Normal 21.0-31.0 [facility] Comment on above: Performed By: #### B TICKET MAKER, HS TROP, PT, CBC, BMP #### [place] [address] [place] Chloride [Moles/volume] in S oziel or PlasmaOrdered By: Jorge Luis Zavala on 07-29-2025 Chloride [Moles/Vol] 110 mmol/L High 98-107 [facility] Comment on above: Performed By: #### B TICKET MAKER, HS TROP, PT, CBC, BMP #### [address] Complete Blood Count Auto Di ffon 07-29-2025 Mean Corpuscular HGB Conc 32.6 g/dL Normal 32.0-35.0 [facility] Comment on above: Performed By: #### B TICKET MAKER, HS TROP, PT, CBC, BMP #### [place] [address] [place] Monocytes/100 WBC (Bld) 18.19 % Normal 0.00-20.00 [facility] Comment on above: Performed By: #### B TICKET MAKER, HS TROP, PT, CBC, BMP #### [place] [address] [place] NRBC% 0.1 /100{WBC} Normal 0-0.5 [facility] Comment on above: Performed By: #### B TICKET MAKER, HS TROP, PT, CBC, BMP #### [address] White Blood Count 6.0 [CFU]/mL Normal 3.8-11.6 [facility] Comment on above: Performed By: #### B TICKET MAKER, HS TROP, PT, CBC, BMP #### [address] Creatinine [Mass/volume] in Serum or PlasmaOrdered By: Jorge Luis Zavala on 07-29-2025 Creatinine [Mass/Vol] 1.84 mg/dL High 0.60-1.20 [facility] Comment on above: Performed By: #### B TICKET MAKER, HS TROP, PT, CBC, BMP #### [place] [address] [place] ECG 12 lead ECGon 07-29-2025 ECG 12 lead ECG [place] [address] Electrocardiograph Report Signed Patient: Joe Call MR#: [id number] 0 : 1945 Acct:[id number] Age/Sex: 80 / F ADM Date: 07/29/25 Loc: ER Room: Type: [facility] ER Attending Dr: Ordering Provider: Jorge Luis Zavala, Date of Service: 07/29/25 ECG/ECG 12 lead ECG: Shortness of Breath/Dyspnea Copies to: Test Reason : Blood Pressure : */* mmHG Vent. Rate : 49 BPM Atrial Rate : 49 BPM P-R Int : 176 ms QRS Dur : 90 ms QT Int : 466 ms P-R-T Axes : 40 32 78 degrees QTcB Int : 420 ms Sinus bradycardia Low voltage QRS Cannot rule out Anterior infarct (cited on or before 12-Mar-2025) Abnormal ECG When compared with ECG of 12-Mar-2025 13:43, No significant change was found Confirmed by JORGE LUIS ZAVALA DO ([id number]) on 07/29/2025 1:27:23 PM Referred By: Electronically Signed By: JORGE LUIS ZAVALA DO Transcribed By: MUS Signed By Jorge Luis Zavala DO 1327 Normal [facility] Eosinophils [#/volume] in Bl ood by Automated countOrdered By: Jorge Luis Zavala on 07-29-2025 Eosinophils (Bld) [#/Vol] 0.1 10*3/uL Normal 0.0-0.45 [facility] Comment on above: Performed By: #### B TICKET MAKER, HS TROP, PT, CBC, BMP #### [facility] [address] [place] [address] [place] Eosinophils/100 leukocytes i n Blood by Automated countOrdered By: Jorge Luis Zavala on 07-29-2025 Eosinophils/100 WBC (Bld) 1.7 % Normal . [facility] Comment on above: Performed By: #### B TICKET MAKER, HS TROP, PT, CBC, BMP #### [facility] [address] [place] [address] [place] Erythrocyte distribution wid th [Ratio] by Automated countOrdered By: Jorge Luis Zavala on 07-29-2025 Erythrocyte distribution width (RBC) [Ratio] 17.5 % High 11.9-15.3 [facility] Comment on above: Performed By: #### B TICKET MAKER, HS TROP, PT, CBC, BMP #### [facility] [address] [place] [address] [place] Erythrocytes [#/volume] in B lood by Automated countOrdered By: Jorge Luis Zavala on 07-29-2025 RBC (Bld) [#/Vol] 3.48 10*6/uL Low 3.60-5.00 [facility] Comment on above: Performed By: #### B TICKET MAKER, HS TROP, PT, CBC, BMP #### [facility] [address] Glomerular filtration rate [ Volume Rate/Area] in Serum, Plasma or Blood by CreatinineOrdered By: Jorge Luis Zavala on 07-29-2025 Glomerular filtration rate [Volume Rate/Area] in Serum, Plasma or Blood by Creatinine 27.569 mL/Min [facility] Glucose Poct Glucometerson 0 07-29-2025 Commemt1 Glu2: Cleaned Meter Normal [facility] Comment on above: Result Comment: PERF ORMED BY: [place] [address] PATHOLOGIST DELICATESSEN CLERK SIMON LINTON M.D. Performed By: #### G LULS #### Point of Care testing , Glucose [Mass/Vol] 153 mg/dL Normal [facility] Comment on above: Result Comment: [place] [facility] Glucose Reference Range is dependent on time and content of last meal. Glucose of more than 200 mg/dL in a nonstressed, ambulatory subject supports the diagnosis of Diabetes Mellitus. Performed By: #### G LULS #### Point of Care testing , Commemt1 Glu2: Cleaned Meter Normal [facility] Comment on above: Result Comment: PERF ORMED BY: [place] [address] PATHOLOGIST DELICATESSEN CLERK SIMON LINTON M.D. Performed By: #### B TICKET MAKER, HS TROP, PT, CBC, BMP #### [facility] [address] [place] [address] [place] Glucose [Mass/volume] in Ser um or PlasmaOrdered By: Jorge Luis Zavala on 07-29-2025 Glucose [Mass/Vol] 85 mg/dL Normal 70-100 [facility] Comment on above: Result Comment: [place] [facility] Glucose Reference Range is dependent on time and content of last meal. Glucose of more than 200 mg/dL in a nonstressed, ambulatory subject supports the diagnosis of Diabetes Mellitus. ADA recommended reference range Performed By: #### B TICKET MAKER, HS TROP, PT, CBC, BMP #### [address] Hematocrit [Volume Fraction] of Blood by Automated countOrdered By: Jorge Luis Zavala on 07-29-2025 Hematocrit (Bld) [Volume fraction] 31.5 % Low 34.0-46.4 [facility] Comment on above: Performed By: #### B TICKET MAKER, HS TROP, PT, CBC, BMP #### [address] Hemoglobin [Mass/volume] in BloodOrdered By: Jorge Luis Zavala on 07-29-2025 Hemoglobin (Bld) [Mass/Vol] 10.3 g/dL Low 11.8-15.4 [facility] Comment on above: Performed By: #### B TICKET MAKER, HS TROP, PT, CBC, BMP #### [address] INR in Platelet poor plasma by Coagulation assayOrdered By: Jorge Luis Zavala on 07-29-2025 INR Coag (PPP) [Relative time] 1.4 {INR} [facility] Comment on above: Result Comment: INR Therapeutic [...] heart valves: 3 - 4.5 PERFORMED BY: [place] [address] PATHOLOGIST DELICATESSEN CLERK SIMON LINTON M.D. Performed By: #### B TICKET MAKER, HS TROP, PT, CBC, BMP #### [address] Leukocytes [#/volume] correc gali for nucleated erythrocytes in Blood by Automated counOrdered By: Jorge Luis Zavala on 07-29-2025 WBC corrected for nucl RBC Auto (Bld) [#/Vol] 6.0 10*3/uL 3.8-11.6 [facility] Leukocytes [#/volume] in Blo od by Automated countOrdered By: Jorge Luis Zavala on 07-29-2025 WBC (Bld) [#/Vol] 6.0 10*3/uL Normal 3.8-11.6 [facility] Comment on above: Performed By: #### B TICKET MAKER, HS TROP, PT, CBC, BMP #### [facility] [address] Lymphocytes [#/volume] in Bl ood by Automated countOrdered By: Jorge Luis Zavala on 07-29-2025 Lymphocytes (Bld) [#/Vol] 0.8 10*3/uL Low 1.00-4.8 [facility] Comment on above: Performed By: #### B TICKET MAKER, HS TROP, PT, CBC, BMP #### [facility] [address] [place] [address] [place] Lymphocytes/100 leukocytes i n Blood by Automated countOrdered By: Jorge Luis Zavala on 07-29-2025 Lymphocytes/100 WBC (Bld) 13.6 % Normal . [facility] Comment on above: Performed By: #### B TICKET MAKER, HS TROP, PT, CBC, BMP #### [address] MCH [Entitic mass] by Automa gali countOrdered By: Jorge Luis Zavala on 07-29-2025 MCH (RBC) [Entitic mass] 29.6 pg Normal 24.7-34.3 [facility] Comment on above: Performed By: #### B TICKET MAKER, HS TROP, PT, CBC, BMP #### [facility] [address] [place] [address] MCHC Auto (RBC) [Mass/Vol]Or dered By: Jorge Luis Zavala on 07-29-2025 MCHC (RBC) [Mass/Vol] 32.6 g/dL 32.0-35.0 [facility] MCV [Entitic volume] by Auto mated countOrdered By: Jorge Luis Zavala on 07-29-2025 MCV (RBC) [Entitic vol] 90.7 fL Normal 80-100 [facility] Comment on above: Performed By: #### B TICKET MAKER, HS TROP, PT, CBC, BMP #### [facility] [address] Magnesium [Mass/volume] in S oziel or PlasmaOrdered By: Chasity Castro on 07-29-2025 Magnesium [Mass/Vol] 1.7 mg/dL Low 1.9-2.7 [facility] Comment on above: Order Comment: Abbie nt add Performed By: #### B TICKET MAKER, HS TROP, PT, CBC, BMP #### [facility] [address] Monocyte distribution width [Entitic volume] in Blood by AutomatedOrdered By: Jorge Luis Zavala on 07-29-2025 Monocyte distribution width Auto (Bld) [Entitic vol] 18.19 % 0.00-20.00 [facility] Monocytes [#/volume] in Bloo d by Automated countOrdered By: Jorge Luis Zavala on 07-29-2025 Monocytes (Bld) [#/Vol] 0.4 10*3/uL Normal 0.0-0.8 [facility] Comment on above: Performed By: #### B TICKET MAKER, HS TROP, PT, CBC, BMP #### [facility] [address] [place] [address] Monocytes/100 leukocytes in Blood by Automated countOrdered By: Jorge Luis Zavala on 07-29-2025 Monocytes/100 WBC (Bld) 7.4 % Normal . [facility] Comment on above: Performed By: #### B TICKET MAKER, HS TROP, PT, CBC, BMP #### [facility] [address] [place] [address] [place] Neutrophils [#/volume] in Bl ood by Automated countOrdered By: Jorge Luis Zavala on 07-29-2025 Neutrophils (Bld) [#/Vol] 4.5 10*3/uL Normal 1.8-7.7 [facility] Comment on above: Performed By: #### B TICKET MAKER, HS TROP, PT, CBC, BMP #### [facility] [address] [place] [address] [place] Neutrophils/100 leukocytes i n Blood by Automated countOrdered By: Jorge Luis Zavala on 07-29-2025 Neutrophils/100 WBC (Bld) 76.0 % Normal . [facility] Comment on above: Performed By: #### B TICKET MAKER, HS TROP, PT, CBC, BMP #### [facility] [address] No Panel InformationOrdered By: Jorge Luis Zavala on 07-29-2025 Glu2: cleaned meter [facility] 31.42 [facility] Nucleated erythrocytes [Pres ence] in Blood by Automated countOrdered By: Jorge Luis Zavala on 07-29-2025 Nucleated RBC Auto Ql (Bld) 0.1 /100{WBC} 0-0.5 [facility] Platelet mean volume [Entiti c volume] in Blood by Automated countOrdered By: Jorge Luis Zavala on 07-29-2025 Platelet mean volume (Bld) [Entitic vol] 9.0 fL Normal 6.3-10.7 [facility] Comment on above: Performed By: #### B TICKET MAKER, HS TROP, PT, CBC, BMP #### [address] Platelets [#/volume] in Bloo d by Automated countOrdered By: Jorge Luis Zavala on 07-29-2025 Platelets (Bld) [#/Vol] 218 10*3/uL Normal 150-450 [facility] Comment on above: Performed By: #### B TICKET MAKER, HS TROP, PT, CBC, BMP #### [address] Potassium [Moles/volume] in Serum or PlasmaOrdered By: Jorge Luis Zavala on 07-29-2025 Potassium [Moles/Vol] 5.1 mmol/L Normal 3.5-5.1 [facility] Comment on above: Result Comment: Hemo lysis is present at a level that could interfere with the result. Contact lab if redraw is required Performed By: #### B TICKET MAKER, HS TROP, PT, CBC, BMP #### [address] Prothrombin time (PT)Ordered By: Jorge Luis Zavala on 07-29-2025 PT Coag (PPP) [Time] 15.8 s High 9.0-12.9 [facility] Comment on above: Result Comment: A he matocrit value greater than 55% may lead to inaccurate results in coagulation testing. Patients having hematocrit values >55% require a special collection tube for coagulation studies. Please contact the laboratory at [phone] for redraw instructions. Performed By: #### B TICKET MAKER, HS TROP, PT, CBC, BMP #### [address] Serum or plasma anion gap de terminationOrdered By: Jorge Luis Zavala on 07-29-2025 Anion gap [Moles/Vol] 9.3 mmol/L Normal 6.0-15.0 [facility] Comment on above: Performed By: #### B TICKET MAKER, HS TROP, PT, CBC, BMP #### [address] Sodium [Moles/volume] in Ser um or PlasmaOrdered By: Jorge Luis Zavala on 07-29-2025 Sodium [Moles/Vol] 143 mmol/L Normal 136-145 [facility] Comment on above: Performed By: #### B TICKET MAKER, HS TROP, PT, CBC, BMP #### [address] Thyrotropin [Units/volume] i n Serum or PlasmaOrdered By: Chasity Castro on 07-29-2025 TSH Qn 8.18 m[IU]/L High 0.45-5.33 [facility] Comment on above: Order Comment: Comme nt add Result Comment: PERF ORMED BY: [place] [address] PATHOLOGIST DELICATESSEN CLERK SIMON LINTON M.D. Performed By: #### B TICKET MAKER, HS TROP, PT, CBC, BMP #### [address] Troponin I High Sensitivityo n 07-29-2025 Troponin I High Sensitivity 13 Normal 0-15 [facility] Comment on above: Result Comment: The Troponin units of report have been changed to meet the Chest Pain Accreditation requirement, element EC5.M1l2. Troponin units are changed from pg/ml to ng/L. Also, the decimal is removed and results are in whole numbers. PERFORMED BY: [place] [address] PATHOLOGIST DELICATESSEN CLERK SIMON LINTON M.D. Performed By: #### B TICKET MAKER, HS TROP, PT, CBC, BMP #### [facility] [address] [place] [address] Troponin I.cardiac [Mass/vol ume] in Serum or Plasma by Detection limit <= 0.01 ng/mLOrdered By: Jorge Luis Zavala on 07-29-2025 Troponin I.cardiac DL <= 0.01 ng/mL [Mass/Vol] 13 ng/L 0-15 [facility] Urea nitrogen [Mass/volume] in Serum or PlasmaOrdered By: Jorge Luis Zavala on 07-29-2025 Urea nitrogen [Mass/Vol] 51 mg/dL High 7-25 [facility] Comment on above: Performed By: #### B TICKET MAKER, HS TROP, PT, CBC, BMP #### [facility] [address] [place], [place] [id number] [place] X-ray reportOrdered By: Kirit Langston on 07-29-2025 Study report [facility] Work Phone: XR chest 2V*on 07-29-2025 XR chest 2V* [facility] [place] [id number] XRay Report Signed Patient: Joe Call MR#: [id number] 0 : 1945 Acct:[id number] Age/Sex: 80 / F ADM Date: 07/29/25 Loc: ER Room: Type: [facility] ER Attending Dr: Copies to: Jorge Luis Zavala DO Ordering Provider: Jorge Luis Zavala DO Date of Service: 07/29/25 XR/XR chest 2V*: Shortness of Breath/Dyspnea PA AND LATERAL CHEST: CLINICAL HISTORY: Worsening shortness of breath COMPARISON: 07/22/2025 FINDINGS: Perihilar congestion and cardiomegaly. Interstitial thickening. Small right-sided and moderate left-sided effusions. No pneumothorax. XR/XR chest 2V* IMPRESSION: CHF with moderate left-sided effusion. Impression dictated by: Vargas Langston M.D. 07/29/2025 11:43 AM Dictation Location: [place] [address] Transcribed By: [facility] 07/29/25 1143 Dictated By: Vargas Langston MD 07/29/25 1142 Signed By: 07/29/25 1143 Normal [facility] Glomerular filtration rate ( GFR) estimation in non- AmericanOrdered By: Monica Stewart on 07-23-2025 GFR/1.73 sq M.predicted among non-blacks MDRD (S/P/Bld) [Vol rate/Area] 30 mL/min/{1.73_m2} Low >=60 mL/min/1.73 m 2 [facility] No Panel InformationOrdered By: Monica Stewart on 07-23-2025 70.7 pg/mL 0.0-285.2 [facility] 25.0 [facility] 41.0 mg/dL High 7.0-18.0 [facility] 8.3 mg/dL Low 8.5-10.1 [facility] 109 mmol/L High 98-107 [facility] 27.5 mmol/L 21.0-32.0 [facility] 1.64 mg/dL High 0.55-1.02 [facility] 37 Low >=60 mL/min/1.73 m 2 [facility] 151 mg/dL High 74-106 [facility] 4.4 mmol/L 3.5-5.1 [facility] 144 mmol/L 136-145 [facility] Renin activityOrdered By: Ra mustapha Stewart on 07-23-2025 Renin (P) [Catalytic activity/Vol] 0.242 ng/mL/hr 0.167-5.380 [facility] Serum or plasma aldosterone measurement (mass/volume)Ordered By: Monica Stewart on 07-23-2025 Aldosterone [Mass/Vol] 2.6 ng/dL 0.0-30.0 [facility] Serum or plasma anion gap de terminationOrdered By: Monica Stewart on 07-23-2025 Anion gap [Moles/Vol] 11.9 mmol/L [facility] Serum or plasma free metanep hrine measurement (mass/volume)Ordered By: Monica Stewart on 07-23-2025 Metanephrine Free [Mass/Vol] <25.0 pg/mL 0.0-88.0 [facility] Basophils Auto (Bld) [#/Vol] Ordered By: Shantel Steven on 07-22-2025 Basophils (Bld) [#/Vol] 0.1 10 3/uL 0.0-0.1 [facility] Basophils/100 WBC Auto (Bld) Ordered By: Shantel Steven on 07-22-2025 Basophils/100 WBC (Bld) 1.0 % 0.2-2.0 [facility] Eosinophils/100 WBC Auto (Bl d)Ordered By: Shantel Steven on 07-22-2025 Eosinophils/100 WBC (Bld) 2.3 % 0.9-7.0 [facility] Erythrocyte distribution wid th Auto (RBC) [Ratio]Ordered By: Shantel Steven on 07-22-2025 Erythrocyte distribution width (RBC) [Ratio] 15.5 % High 11.0-15.0 [facility] Globulin Calc (S) [Mass/Vol] Ordered By: Analisa Bryant on 07-22-2025 Globulin (S) [Mass/Vol] 5.0 g/dL [facility] Glomerular filtration rate ( GFR) estimation in non- AmericanOrdered By: Analisa Bryant on 07-22-2025 GFR/1.73 sq M.predicted among non-blacks MDRD (S/P/Bld) [Vol rate/Area] 35 mL/min/{1.73_m2} Low >=60 mL/min/1.73 m 2 [facility] Hematocrit Auto (Bld) [Volum e fraction]Ordered By: Shantel Steven on 07-22-2025 Hematocrit (Bld) [Volume fraction] 32.6 % Low 36.0-48.0 [facility] Hemoglobin [Mass/volume] in BloodOrdered By: Shantel Steven on 07-22-2025 Hemoglobin (Bld) [Mass/Vol] 10.5 g/dL Low 12.0-16.0 [facility] Leukocytes [#/volume] correc gali for nucleated erythrocytes in Blood by Automated counOrdered By: Shantel Steven on 07-22-2025 WBC corrected for nucl RBC Auto (Bld) [#/Vol] 6.1 10 3/uL 4.0-11.0 [facility] Lymphocytes Auto (Bld) [#/Vo l]Ordered By: Shantel Steven on 07-22-2025 Lymphocytes (Bld) [#/Vol] 0.9 10 3/uL Low 1.2-3.8 [facility] Lymphocytes/100 WBC Auto (Bl d)Ordered By: Shantel Steven on 07-22-2025 Lymphocytes/100 WBC (Bld) 15.0 % Low 20.5-60.0 [facility] MCH Auto (RBC) [Entitic mass ]Ordered By: Shantel Steven on 07-22-2025 MCH (RBC) [Entitic mass] 29.7 pg 26.7-34.0 [facility] MCHC Auto (RBC) [Mass/Vol]Or dered By: Shantel Steven on 07-22-2025 MCHC (RBC) [Mass/Vol] 32.2 g/dL 29.9-35.2 [facility] MCV Auto (RBC) [Entitic vol] Ordered By: Shantel Steven on 07-22-2025 MCV (RBC) [Entitic vol] 92.1 fL 81.0-99.0 [facility] Monocytes Auto (Bld) [#/Vol] Ordered By: Shantel Steven on 07-22-2025 Monocytes (Bld) [#/Vol] 0.5 10 3/uL 0.3-0.8 [facility] Monocytes/100 WBC Auto (Bld) Ordered By: Shantel Steven on 07-22-2025 Monocytes/100 WBC (Bld) 8.2 % 1.7-12.0 [facility] Neutrophils Auto (Bld) [#/Vo l]Ordered By: Shantel Steven on 07-22-2025 Neutrophils (Bld) [#/Vol] 4.5 10 3/uL 1.4-6.5 [facility] Neutrophils/100 WBC Auto (Bl d)Ordered By: Shantel Steven on 07-22-2025 Neutrophils/100 WBC (Bld) 73.3 % 43.0-75.0 [facility] No Panel InformationOrdered By: Shantel Steven on 07-22-2025 7408.0 pg/mL Critically high <=1800.0 [facility] 0.1 10 3/uL 0.0-0.7 [facility] 0.01 10 3/uL 0.00-0.03 [facility] 0.2 % 0.0-0.5 [facility] No Panel InformationOrdered By: Analisa Bryant on 07-22-2025 19.6 pg/mL 4.0-51.3 [facility] 2.1 g/dL Low 3.4-5.0 [facility] 137 U/L High 46-116 [facility] 15 U/L 14-59 [facility] 12 U/L Low 15-37 [facility] 26.9 [facility] 39.0 mg/dL High 7.0-18.0 [facility] 8.2 mg/dL Low 8.5-10.1 [facility] 109 mmol/L High 98-107 [facility] 26.1 mmol/L 21.0-32.0 [facility] 1.45 mg/dL High 0.55-1.02 [facility] 42 Low >=60 mL/min/1.73 m 2 [facility] 150 mg/dL High 74-106 [facility] 4.8 mmol/L 3.5-5.1 [facility] 143 mmol/L 136-145 [facility] 0.4 mg/dL 0.2-1.0 [facility] 7.1 g/dL 6.4-8.2 [facility] Platelet mean volume Auto (B ld) [Entitic vol]Ordered By: Shantel Steven on 07-22-2025 Platelet mean volume (Bld) [Entitic vol] 10.5 fL 9.5-13.5 [facility] Platelets Auto (Bld) [#/Vol] Ordered By: Shantel Steven on 07-22-2025 Platelets (Bld) [#/Vol] 200 10 3/uL 150-450 [facility] RBC Auto (Bld) [#/Vol]Ordere d By: Shantel Steven on 07-22-2025 RBC (Bld) [#/Vol] 3.54 10 6/uL Low 4.20-5.40 [facility] Serum or plasma albumin/glob ulin mass ratioOrdered By: Analisa Bryant on 07-22-2025 Albumin/Globulin [Mass ratio] 0.4 {ratio} [facility] Serum or plasma anion gap de terminationOrdered By: Analisa Bryant on 07-22-2025 Anion gap [Moles/Vol] 12.7 mmol/L [facility] Telephoneon 07-15-2025 Telephone [phone] Joe Call 1945 F Date Provider Department [facility] Family History Problem Relation Age of Onset Heart disease Mother Heart attack Father Coronary artery disease Other Diabetes Other Polycystic kidney disease Other Family Status - Relation Status Age at Mother Father Sister Brother Other Normal [facility] Glomerular filtration rate ( GFR) estimation in non- AmericanOrdered By: Monica Stewart on 07-01-2025 GFR/1.73 sq M.predicted among non-blacks MDRD (S/P/Bld) [Vol rate/Area] 25 mL/min/{1.73_m2} Low >=60 mL/min/1.73 m 2 [facility] No Panel InformationOrdered By: Monica Stewart on 07-01-2025 18.5 [facility] 36.0 mg/dL High 7.0-18.0 [facility] 8.3 mg/dL Low 8.5-10.1 [facility] 106 mmol/L 98-107 [facility] 31.7 mmol/L 21.0-32.0 [facility] 1.95 mg/dL High 0.55-1.02 [facility] 30 Low >=60 mL/min/1.73 m 2 [facility] 189 mg/dL High 74-106 [facility] 3.6 mmol/L 3.5-5.1 [facility] 143 mmol/L 136-145 [facility] Serum or plasma anion gap de terminationOrdered By: Monica Stewart on 07-01-2025 Anion gap [Moles/Vol] 8.9 mmol/L [facility] Glomerular filtration rate ( GFR) estimation in non- AmericanOrdered By: Monica Stewart on 06-30-2025 GFR/1.73 sq M.predicted among non-blacks MDRD (S/P/Bld) [Vol rate/Area] 28 mL/min/{1.73_m2} Low >=60 mL/min/1.73 m 2 [facility] No Panel InformationOrdered By: Monica Stewart on 06-30-2025 19.5 [facility] 34.0 mg/dL High 7.0-18.0 [facility] 8.2 mg/dL Low 8.5-10.1 [facility] 106 mmol/L 98-107 [facility] 32.9 mmol/L High 21.0-32.0 [facility] 1.74 mg/dL High 0.55-1.02 [facility] 34 Low >=60 mL/min/1.73 m 2 [facility] 50 mg/dL Low 74-106 [facility] 3.2 mmol/L Low 3.5-5.1 [facility] 144 mmol/L 136-145 [facility] Serum or plasma anion gap de terminationOrdered By: Monica Stewart on 06-30-2025 Anion gap [Moles/Vol] 8.3 mmol/L [facility] Basophils Auto (Bld) [#/Vol] Ordered By: Monica Stewart on 06-29-2025 Basophils (Bld) [#/Vol] 0.1 10 3/uL 0.0-0.1 [facility] Basophils/100 WBC Auto (Bld) Ordered By: Monica Stewart on 06-29-2025 Basophils/100 WBC (Bld) 1.6 % 0.2-2.0 [facility] Eosinophils/100 WBC Auto (Bl d)Ordered By: Monica Stewart on 06-29-2025 Eosinophils/100 WBC (Bld) 2.4 % 0.9-7.0 [facility] Erythrocyte distribution wid th Auto (RBC) [Ratio]Ordered By: Monica Stewart on 06-29-2025 Erythrocyte distribution width (RBC) [Ratio] 16.1 % High 11.0-15.0 [facility] Globulin Calc (S) [Mass/Vol] Ordered By: Monica Stewart on 06-29-2025 Globulin (S) [Mass/Vol] 3.8 g/dL [facility] Glomerular filtration rate ( GFR) estimation in non- AmericanOrdered By: Monica Stewart on 06-29-2025 GFR/1.73 sq M.predicted among non-blacks MDRD (S/P/Bld) [Vol rate/Area] 37 mL/min/{1.73_m2} Low >=60 mL/min/1.73 m 2 [facility] Hematocrit Auto (Bld) [Volum e fraction]Ordered By: Monica Stewart on 06-29-2025 Hematocrit (Bld) [Volume fraction] 32.4 % Low 36.0-48.0 [facility] Hemoglobin [Mass/volume] in BloodOrdered By: Monica Stewart on 06-29-2025 Hemoglobin (Bld) [Mass/Vol] 10.2 g/dL Low 12.0-16.0 [facility] Leukocytes [#/volume] correc gali for nucleated erythrocytes in Blood by Automated counOrdered By: Monica Stewart on 06-29-2025 WBC corrected for nucl RBC Auto (Bld) [#/Vol] 5.7 10 3/uL 4.0-11.0 [facility] Lymphocytes Auto (Bld) [#/Vo l]Ordered By: Monica Stewart on 06-29-2025 Lymphocytes (Bld) [#/Vol] 1.2 10 3/uL 1.2-3.8 [facility] Lymphocytes/100 WBC Auto (Bl d)Ordered By: Monica Stewart on 06-29-2025 Lymphocytes/100 WBC (Bld) 20.6 % 20.5-60.0 [facility] MCH Auto (RBC) [Entitic mass ]Ordered By: Monica Stewart on 06-29-2025 MCH (RBC) [Entitic mass] 29.3 pg 26.7-34.0 [facility] MCHC Auto (RBC) [Mass/Vol]Or dered By: Monica Stewart on 06-29-2025 MCHC (RBC) [Mass/Vol] 31.5 g/dL 29.9-35.2 [facility] MCV Auto (RBC) [Entitic vol] Ordered By: Monica Stewart on 06-29-2025 MCV (RBC) [Entitic vol] 93.1 fL 81.0-99.0 [facility] Monocytes Auto (Bld) [#/Vol] Ordered By: Monica Stewart on 06-29-2025 Monocytes (Bld) [#/Vol] 0.6 10 3/uL 0.3-0.8 [facility] Monocytes/100 WBC Auto (Bld) Ordered By: Monica Stewart on 06-29-2025 Monocytes/100 WBC (Bld) 10.1 % 1.7-12.0 [facility] Neutrophils Auto (Bld) [#/Vo l]Ordered By: Monica Stewart on 06-29-2025 Neutrophils (Bld) [#/Vol] 3.7 10 3/uL 1.4-6.5 [facility] Neutrophils/100 WBC Auto (Bl d)Ordered By: Monica Stewart on 06-29-2025 Neutrophils/100 WBC (Bld) 65.1 % 43.0-75.0 [facility] No Panel InformationOrdered By: Monica Stewart on 06-29-2025 0.1 10 3/uL 0.0-0.7 [facility] 0.01 10 3/uL 0.00-0.03 [facility] 0.2 % 0.0-0.5 [facility] 7998.0 pg/mL Critically high <=1800.0 [facility] 2.0 g/dL Low 3.4-5.0 [facility] 109 U/L 46-116 [facility] 17 U/L 14-59 [facility] 16 U/L 15-37 [facility] 22.5 [facility] 31.0 mg/dL High 7.0-18.0 [facility] 8.2 mg/dL Low 8.5-10.1 [facility] 109 mmol/L High 98-107 [facility] 31.7 mmol/L 21.0-32.0 [facility] 1.38 mg/dL High 0.55-1.02 [facility] 45 Low >=60 mL/min/1.73 m 2 [facility] 87 mg/dL 74-106 [facility] 3.7 mmol/L 3.5-5.1 [facility] 144 mmol/L 136-145 [facility] 0.6 mg/dL 0.2-1.0 [facility] 5.8 g/dL Low 6.4-8.2 [facility] Platelet mean volume Auto (B ld) [Entitic vol]Ordered By: Monica Stewart on 06-29-2025 Platelet mean volume (Bld) [Entitic vol] 10.2 fL 9.5-13.5 [facility] Platelets Auto (Bld) [#/Vol] Ordered By: Monica Stewart on 06-29-2025 Platelets (Bld) [#/Vol] 194 10 3/uL 150-450 [facility] RBC Auto (Bld) [#/Vol]Ordere d By: Monica Stewart on 06-29-2025 RBC (Bld) [#/Vol] 3.48 10 6/uL Low 4.20-5.40 [facility] Serum or plasma albumin/glob ulin mass ratioOrdered By: Monica Stewart on 06-29-2025 Albumin/Globulin [Mass ratio] 0.5 {ratio} [facility] Serum or plasma anion gap de terminationOrdered By: Monica Stewart on 06-29-2025 Anion gap [Moles/Vol] 7.0 mmol/L [facility] Basophils Auto (Bld) [#/Vol] Ordered By: Jarred Galan on 06-28-2025 Basophils (Bld) [#/Vol] 0.1 10 3/uL 0.0-0.1 [facility] Basophils/100 WBC Auto (Bld) Ordered By: Jarred Galan on 06-28-2025 Basophils/100 WBC (Bld) 1.2 % 0.2-2.0 [facility] Eosinophils/100 WBC Auto (Bl d)Ordered By: Jarred Galan on 06-28-2025 Eosinophils/100 WBC (Bld) 2.4 % 0.9-7.0 [facility] Erythrocyte distribution wid th Auto (RBC) [Ratio]Ordered By: Jarred Galan on 06-28-2025 Erythrocyte distribution width (RBC) [Ratio] 15.9 % High 11.0-15.0 [facility] Globulin Calc (S) [Mass/Vol] Ordered By: Jarred Galan on 06-28-2025 Globulin (S) [Mass/Vol] 5.1 g/dL [facility] Glomerular filtration rate ( GFR) estimation in non- AmericanOrdered By: Jarrde Galan on 06-28-2025 GFR/1.73 sq M.predicted among non-blacks MDRD (S/P/Bld) [Vol rate/Area] 37 mL/min/{1.73_m2} Low >=60 mL/min/1.73 m 2 [facility] Hematocrit Auto (Bld) [Volum e fraction]Ordered By: Jarred Galan on 06-28-2025 Hematocrit (Bld) [Volume fraction] 34.9 % Low 36.0-48.0 [facility] Hemoglobin [Mass/volume] in BloodOrdered By: Jarred Galan on 06-28-2025 Hemoglobin (Bld) [Mass/Vol] 11.2 g/dL Low 12.0-16.0 [facility] Leukocytes [#/volume] correc gali for nucleated erythrocytes in Blood by Automated counOrdered By: Jarred Galan on 06-28-2025 WBC corrected for nucl RBC Auto (Bld) [#/Vol] 7.5 10 3/uL 4.0-11.0 [facility] Lymphocytes Auto (Bld) [#/Vo l]Ordered By: Jarred Galan on 06-28-2025 Lymphocytes (Bld) [#/Vol] 0.9 10 3/uL Low 1.2-3.8 [facility] Lymphocytes/100 WBC Auto (Bl d)Ordered By: Jarred Galan on 06-28-2025 Lymphocytes/100 WBC (Bld) 12.6 % Low 20.5-60.0 [facility] MCH Auto (RBC) [Entitic mass ]Ordered By: Jarred Galan on 06-28-2025 MCH (RBC) [Entitic mass] 29.5 pg 26.7-34.0 [facility] MCHC Auto (RBC) [Mass/Vol]Or dered By: Jarred Galan on 06-28-2025 MCHC (RBC) [Mass/Vol] 32.1 g/dL 29.9-35.2 [facility] MCV Auto (RBC) [Entitic vol] Ordered By: Jarred Galan on 06-28-2025 MCV (RBC) [Entitic vol] 91.8 fL 81.0-99.0 [facility] Monocytes Auto (Bld) [#/Vol] Ordered By: Jarred Galan on 06-28-2025 Monocytes (Bld) [#/Vol] 0.6 10 3/uL 0.3-0.8 [facility] Monocytes/100 WBC Auto (Bld) Ordered By: Jarred Galan on 06-28-2025 Monocytes/100 WBC (Bld) 8.1 % 1.7-12.0 [facility] Neutrophils Auto (Bld) [#/Vo l]Ordered By: Jarred Galan on 06-28-2025 Neutrophils (Bld) [#/Vol] 5.6 10 3/uL 1.4-6.5 [facility] Neutrophils/100 WBC Auto (Bl d)Ordered By: Jarred Galan on 06-28-2025 Neutrophils/100 WBC (Bld) 75.6 % High 43.0-75.0 [facility] No Panel InformationOrdered By: Jarred Galan on 06-28-2025 NO [facility] SEEN #/LPF Abnormal NONE SEEN [facility] None Seen #/HPF NONE SEEN [facility] TRACE #/HPF Abnormal NONE SEEN [facility] Negative NEGATIVE [facility] SMALL Abnormal NEGATIVE [facility] CLEAR CLEAR [facility] LT. YELLOW YELLOW [facility] 100 mg/dL Abnormal NEGATIVE [facility] RARE [facility] TRACE Abnormal NONE SEEN [facility] 7.0 5.0-9.0 [facility] >=300 mg/dL Abnormal NEG/TRACE [facility] 5-10 #/HPF Abnormal 0-2 [facility] 1.020 1.005-1.025 [facility] FEW #/LPF Abnormal NONE/RARE [facility] 0.2 EU/dL 0.2-1.0 [facility] 0.2 10 3/uL 0.0-0.7 [facility] 0.01 10 3/uL 0.00-0.03 [facility] 0.1 % 0.0-0.5 [facility] 7158.0 pg/mL Critically high <=1800.0 [facility] 22.6 pg/mL 4.0-51.3 [facility] 2.2 g/dL Low 3.4-5.0 [facility] 104 U/L 46-116 [facility] 16 U/L 14-59 [facility] 21 U/L 15-37 [facility] 22.6 [facility] 31.0 mg/dL High 7.0-18.0 [facility] 8.4 mg/dL Low 8.5-10.1 [facility] 106 mmol/L 98-107 [facility] 30.7 mmol/L 21.0-32.0 [facility] 1.37 mg/dL High 0.55-1.02 [facility] 45 Low >=60 mL/min/1.73 m 2 [facility] 117 mg/dL High 74-106 [facility] 4.2 mmol/L 3.5-5.1 [facility] 143 mmol/L 136-145 [facility] 0.5 mg/dL 0.2-1.0 [facility] 7.3 g/dL 6.4-8.2 [facility] Platelet mean volume Auto (B ld) [Entitic vol]Ordered By: Jarred Galan on 06-28-2025 Platelet mean volume (Bld) [Entitic vol] 10.9 fL 9.5-13.5 [facility] Platelets Auto (Bld) [#/Vol] Ordered By: Jrared Galan on 06-28-2025 Platelets (Bld) [#/Vol] 158 10 3/uL 150-450 [facility] RBC Auto (Bld) [#/Vol]Ordere d By: Jarred Galan on 06-28-2025 RBC (Bld) [#/Vol] 3.80 10 6/uL Low 4.20-5.40 [facility] Serum or plasma albumin/glob ulin mass ratioOrdered By: Jarred Galan on 06-28-2025 Albumin/Globulin [Mass ratio] 0.4 {ratio} [facility] Serum or plasma anion gap de terminationOrdered By: Jarred Galan on 06-28-2025 Anion gap [Moles/Vol] 10.5 [facility] Erythrocyte distribution wid th Auto (RBC) [Ratio]Ordered By: Outside Provider on 06-19-2025 Erythrocyte distribution width (RBC) [Ratio] 15.8 % High 11.0-15.0 [facility] Glomerular filtration rate ( GFR) estimation in non- AmericanOrdered By: Outside Provider on 06-19-2025 GFR/1.73 sq M.predicted among non-blacks MDRD (S/P/Bld) [Vol rate/Area] 27 mL/min/{1.73_m2} Low >=60 mL/min/1.73 m 2 [facility] Hematocrit Auto (Bld) [Volum e fraction]Ordered By: Outside Provider on 06-19-2025 Hematocrit (Bld) [Volume fraction] 33.5 % Low 36.0-48.0 [facility] Hemoglobin [Mass/volume] in BloodOrdered By: Outside Provider on 06-19-2025 Hemoglobin (Bld) [Mass/Vol] 11.0 g/dL Low 12.0-16.0 [facility] Leukocytes [#/volume] correc gali for nucleated erythrocytes in Blood by Automated counOrdered By: Outside Provider on 06-19-2025 WBC corrected for nucl RBC Auto (Bld) [#/Vol] 6.5 10 3/uL 4.0-11.0 [facility] MCH Auto (RBC) [Entitic mass ]Ordered By: Outside Provider on 06-19-2025 MCH (RBC) [Entitic mass] 30.1 pg 26.7-34.0 [facility] MCHC Auto (RBC) [Mass/Vol]Or dered By: Outside Provider on 06-19-2025 MCHC (RBC) [Mass/Vol] 32.8 g/dL 29.9-35.2 [facility] MCV Auto (RBC) [Entitic vol] Ordered By: Outside Provider on 06-19-2025 MCV (RBC) [Entitic vol] 91.5 fL 81.0-99.0 [facility] No Panel InformationOrdered By: Outside Provider on 06-19-2025 9659.0 pg/mL Critically high <=1800.0 [facility] 29.7 pg/mL 4.0-51.3 [facility] 1.5 mg/dL Low 1.8-2.4 [facility] 17.7 [facility] 32.0 mg/dL High 7.0-18.0 [facility] 8.5 mg/dL 8.5-10.1 [facility] 106 mmol/L 98-107 [facility] 33.4 mmol/L High 21.0-32.0 [facility] 1.81 mg/dL High 0.55-1.02 [facility] 33 Low >=60 mL/min/1.73 m 2 [facility] 134 mg/dL High 74-106 [facility] 3.3 mmol/L Low 3.5-5.1 [facility] 145 mmol/L 136-145 [facility] Platelet mean volume Auto (B ld) [Entitic vol]Ordered By: Outside Provider on 06-19-2025 Platelet mean volume (Bld) [Entitic vol] 10.2 fL 9.5-13.5 [facility] Platelets Auto (Bld) [#/Vol] Ordered By: Outside Provider on 06-19-2025 Platelets (Bld) [#/Vol] 244 10 3/uL 150-450 [facility] RBC Auto (Bld) [#/Vol]Ordere d By: Outside Provider on 06-19-2025 RBC (Bld) [#/Vol] 3.66 10 6/uL Low 4.20-5.40 [facility] Serum or plasma anion gap de terminationOrdered By: Outside Provider on 06-19-2025 Anion gap [Moles/Vol] 8.9 mmol/L [facility] Alanine aminotransferase [En zymatic activity/volume] in Serum or PlasmaOrdered By: Shantel Steven on 06-15-2025 ALT [Catalytic activity/Vol] 11 U/L 7-52 [facility] Comment on above: Performed By: #### C MP #### [facility] [address] [place] [place] [address] Albumin [Mass/volume] in Ser um or Plasma by Bromocresol green (BCG) dye binding methoOrdered By: Shantel Steven on 06-15-2025 Albumin BCG dye [Mass/Vol] 2.8 g/dL Low 3.5-5.7 [facility] Alkaline phosphatase [Enzyma tic activity/volume] in Serum or PlasmaOrdered By: Shantel Steven on 06-15-2025 ALP [Catalytic activity/Vol] 103 U/L 34-104 [facility] Comment on above: Result Comment: PERF ORMED BY: [place] [address] PATHOLOGIST DELICATESSEN CLERK SIMON LINTON M.D. Performed By: #### C MP #### [facility] [address] [place] [place] [address] Aspartate aminotransferase [ Enzymatic activity/volume] in Serum or PlasmaOrdered By: Shantel Steven on 06-15-2025 AST [Catalytic activity/Vol] 13 U/L 13-39 [facility] Comment on above: Performed By: #### C MP #### [facility] [address] [place] [address] Bilirubin.total [Mass/volume ] in Serum or PlasmaOrdered By: Shantel Steven on 06-15-2025 Bilirubin [Mass/Vol] 0.5 mg/dL 0.3-1.0 [facility] Comment on above: Performed By: #### C MP #### [address] Calcium [Mass/volume] in Ser um or PlasmaOrdered By: Shantel Steven on 06-15-2025 Calcium [Mass/Vol] 8.3 mg/dL Low 8.6-10.3 [facility] Comment on above: Performed By: #### C MP #### [address] Carbon dioxide, total [Moles /volume] in Serum or PlasmaOrdered By: Shantel Steven on 06-15-2025 CO2 [Moles/Vol] 31.9 mmol/L High 21.0-31.0 [facility] Comment on above: Performed By: #### C MP #### [place] [address] [place] Chloride [Moles/volume] in S oziel or PlasmaOrdered By: Shantel Steven on 06-15-2025 Chloride [Moles/Vol] 103 mmol/L 98-107 [facility] Comment on above: Performed By: #### C MP #### [address] Comprehensive Metabolic Pane daniele 06-15-2025 Albumin [Mass/Vol] 2.8 g/dL Low 3.5-5.7 [facility] Comment on above: Performed By: #### C MP #### [address] GFR/1.73 sq M.predicted MDRD (S/P/Bld) [Vol rate/Area] 38.841 mL/min/{1.73_m2} Normal [facility] Comment on above: Performed By: #### C MP #### [address] Creatinine [Mass/volume] in Serum or PlasmaOrdered By: Shantel Steven on 06-15-2025 Creatinine [Mass/Vol] 1.39 mg/dL High 0.60-1.20 [facility] Comment on above: Performed By: #### C MP #### [address] Glucose [Mass/volume] in Ser um or PlasmaOrdered By: Shantel Steven on 06-15-2025 Glucose [Mass/Vol] 235 mg/dL High 70-100 [facility] Comment on above: Result Comment: [place] Glucose Reference Range is dependent on time and content of last meal. Glucose of more than 200 mg/dL in a nonstressed, ambulatory subject supports the diagnosis of Diabetes Mellitus. ADA recommended reference range Performed By: #### C MP #### [address] No Panel InformationOrdered By: Shantel Steven on 06-15-2025 38.841 mL/Min [facility] N/A [facility] Potassium [Moles/volume] in Serum or PlasmaOrdered By: Shantel Steven on 06-15-2025 Potassium [Moles/Vol] 3.7 mmol/L 3.5-5.1 [facility] Comment on above: Performed By: #### C MP #### [address] Protein [Mass/volume] in Ser um or PlasmaOrdered By: Shantel Steven on 06-15-2025 Protein [Mass/Vol] 6.3 g/dL Low 6.4-8.9 [facility] Comment on above: Performed By: #### C MP #### [address] Serum globulin measurement b y calculation (mass/volume)Ordered By: Shantel Steven on 06-15-2025 Globulin (S) [Mass/Vol] 3.5 g/dL [facility] Comment on above: Performed By: #### C MP #### [address] Serum or plasma albumin/glob ulin mass ratioOrdered By: Shantel Steven on 06-15-2025 Albumin/Globulin [Mass ratio] 0.8 {ratio} [facility] Comment on above: Performed By: #### C MP #### [facility] [address] Serum or plasma anion gap de terminationOrdered By: Shantel Steven on 06-15-2025 Anion gap [Moles/Vol] 9.8 mmol/L 6.0-15.0 [facility] Comment on above: Performed By: #### C MP #### [facility] [address] [place] [address] [place] Sodium [Moles/volume] in Ser um or PlasmaOrdered By: Shantel Steven on 06-15-2025 Sodium [Moles/Vol] 141 mmol/L 136-145 [facility] Comment on above: Performed By: #### C MP #### [facility] [address] [place] [address] Urea nitrogen [Mass/volume] in Serum or PlasmaOrdered By: Shantel Steven on 06-15-2025 Urea nitrogen [Mass/Vol] 31 mg/dL High 7-25 [facility] Comment on above: Performed By: #### C MP #### [facility] [address] [place] [address] Basophils Auto (Bld) [#/Vol] Ordered By: Osbaldo Marlow on 06-10-2025 Basophils (Bld) [#/Vol] 0.1 10 3/uL 0.0-0.1 [facility] Basophils/100 WBC Auto (Bld) Ordered By: Osbaldo Marlow on 06-10-2025 Basophils/100 WBC (Bld) 1.1 % 0.2-2.0 [facility] Eosinophils/100 WBC Auto (Bl d)Ordered By: Osbaldo Marlow on 06-10-2025 Eosinophils/100 WBC (Bld) 2.1 % 0.9-7.0 [facility] Erythrocyte distribution wid th Auto (RBC) [Ratio]Ordered By: Osbaldo Marlow on 06-10-2025 Erythrocyte distribution width (RBC) [Ratio] 16.4 % High 11.0-15.0 [facility] Estimated glomerular filtrat ion rate (GFR) non- AmericanOrdered By: Osbaldo Marlow on 06-10-2025 GFR/1.73 sq M.predicted among non-blacks MDRD (S/P/Bld) [Vol rate/Area] 27 mL/min/{1.73_m2} Low >=60 mL/min/1.73 m 2 [facility] Globulin Calc (S) [Mass/Vol] Ordered By: Osbaldo Marlow on 06-10-2025 Globulin (S) [Mass/Vol] 4.6 g/dL [facility] Hematocrit Auto (Bld) [Volum e fraction]Ordered By: Osbaldo Marlow on 06-10-2025 Hematocrit (Bld) [Volume fraction] 31.3 % Low 36.0-48.0 [facility] Hemoglobin [Mass/volume] in BloodOrdered By: Osbaldo Marlow on 06-10-2025 Hemoglobin (Bld) [Mass/Vol] 10.1 g/dL Low 12.0-16.0 [facility] Leukocytes [#/volume] correc gali for nucleated erythrocytes in Blood by Automated counOrdered By: Osbaldo Marlow on 06-10-2025 WBC corrected for nucl RBC Auto (Bld) [#/Vol] 9.0 10 3/uL 4.0-11.0 [facility] Lymphocytes Auto (Bld) [#/Vo l]Ordered By: Osbaldo Marlow on 06-10-2025 Lymphocytes (Bld) [#/Vol] 1.4 10 3/uL 1.2-3.8 [facility] Lymphocytes/100 WBC Auto (Bl d)Ordered By: Osbaldo Marlow on 06-10-2025 Lymphocytes/100 WBC (Bld) 15.0 % Low 20.5-60.0 [facility] MCH Auto (RBC) [Entitic mass ]Ordered By: Osbaldo Marlow on 06-10-2025 MCH (RBC) [Entitic mass] 29.6 pg 26.7-34.0 [facility] MCHC Auto (RBC) [Mass/Vol]Or dered By: Osbaldo Marlow on 06-10-2025 MCHC (RBC) [Mass/Vol] 32.3 g/dL 29.9-35.2 [facility] MCV Auto (RBC) [Entitic vol] Ordered By: Osbaldo Marlow on 06-10-2025 MCV (RBC) [Entitic vol] 91.8 fL 81.0-99.0 [facility] Monocytes Auto (Bld) [#/Vol] Ordered By: Osbaldo Marlow on 06-10-2025 Monocytes (Bld) [#/Vol] 0.5 10 3/uL 0.3-0.8 [facility] Monocytes/100 WBC Auto (Bld) Ordered By: Osbaldo Marlow on 06-10-2025 Monocytes/100 WBC (Bld) 5.6 % 1.7-12.0 [facility] Neutrophils Auto (Bld) [#/Vo l]Ordered By: Osbaldo Marlow on 06-10-2025 Neutrophils (Bld) [#/Vol] 6.8 10 3/uL High 1.4-6.5 [facility] Neutrophils/100 WBC Auto (Bl d)Ordered By: Osbaldo Marlow on 06-10-2025 Neutrophils/100 WBC (Bld) 75.9 % High 43.0-75.0 [facility] No Panel InformationOrdered By: Osbaldo Marlow on 06-10-2025 2.0 mg/dL 1.8-2.4 [facility] 4.4 mg/dL 2.6-4.7 [facility] 1.7 g/dL Low 3.4-5.0 [facility] 0.2 10 3/uL 0.0-0.7 [facility] 96 U/L 46-116 [facility] 14 U/L 14-59 [facility] 15 U/L 15-37 [facility] 16.6 [facility] 0.03 10 3/uL 0.00-0.03 [facility] 30.0 mg/dL High 7.0-18.0 [facility] 0.3 % 0.0-0.5 [facility] 8.2 mg/dL Low 8.5-10.1 [facility] 108 mmol/L High 98-107 [facility] 30.5 mmol/L 21.0-32.0 [facility] 1.81 mg/dL High 0.55-1.02 [facility] 33 Low >=60 mL/min/1.73 m 2 [facility] 117 mg/dL High 74-106 [facility] 3.3 mmol/L Low 3.5-5.1 [facility] 146 mmol/L High 136-145 [facility] 0.4 mg/dL 0.2-1.0 [facility] 6.3 g/dL Low 6.4-8.2 [facility] Platelet mean volume Auto (B ld) [Entitic vol]Ordered By: Osbaldo Marlow on 06-10-2025 Platelet mean volume (Bld) [Entitic vol] 10.0 fL 9.5-13.5 [facility] Platelets Auto (Bld) [#/Vol] Ordered By: Osbaldo Marlow on 06-10-2025 Platelets (Bld) [#/Vol] 248 10 3/uL 150-450 [facility] RBC Auto (Bld) [#/Vol]Ordere d By: Osbaldo Marlow on 06-10-2025 RBC (Bld) [#/Vol] 3.41 10 6/uL Low 4.20-5.40 [facility] Serum or plasma albumin/glob ulin mass ratioOrdered By: Osbaldo Marlow on 06-10-2025 Albumin/Globulin [Mass ratio] 0.4 {ratio} [facility] Serum or plasma anion gap de terminationOrdered By: Osbaldo Marlow on 06-10-2025 Anion gap [Moles/Vol] 10.8 mmol/L [facility] Basophils Auto (Bld) [#/Vol] Ordered By: Osbaldo Marlow on 06-09-2025 Basophils (Bld) [#/Vol] 0.1 10 3/uL 0.0-0.1 [facility] Basophils/100 WBC Auto (Bld) Ordered By: Osbaldo Marlow on 06-09-2025 Basophils/100 WBC (Bld) 1.1 % 0.2-2.0 [facility] Eosinophils/100 WBC Auto (Bl d)Ordered By: Osbaldo Marlow on 06-09-2025 Eosinophils/100 WBC (Bld) 1.8 % 0.9-7.0 [facility] Erythrocyte distribution wid th Auto (RBC) [Ratio]Ordered By: Osbaldo Marlow on 06-09-2025 Erythrocyte distribution width (RBC) [Ratio] 15.9 % High 11.0-15.0 [facility] Estimated glomerular filtrat ion rate (GFR) non- AmericanOrdered By: Cheng Aviles on 06-09-2025 GFR/1.73 sq M.predicted among non-blacks MDRD (S/P/Bld) [Vol rate/Area] 33 mL/min/{1.73_m2} Low >=60 mL/min/1.73 m 2 [facility] Globulin Calc (S) [Mass/Vol] Ordered By: Cheng Aviles on 06-09-2025 Globulin (S) [Mass/Vol] 4.9 g/dL [facility] Hematocrit Auto (Bld) [Volum e fraction]Ordered By: Osbadlo Marlow on 06-09-2025 Hematocrit (Bld) [Volume fraction] 31.8 % Low 36.0-48.0 [facility] Hemoglobin [Mass/volume] in BloodOrdered By: Osbaldo Marlow on 06-09-2025 Hemoglobin (Bld) [Mass/Vol] 10.4 g/dL Low 12.0-16.0 [facility] Leukocytes [#/volume] correc gali for nucleated erythrocytes in Blood by Automated counOrdered By: Osbaldo Marlow on 06-09-2025 WBC corrected for nucl RBC Auto (Bld) [#/Vol] 8.3 10 3/uL 4.0-11.0 [facility] Lymphocytes Auto (Bld) [#/Vo l]Ordered By: Osbaldo Marlow on 06-09-2025 Lymphocytes (Bld) [#/Vol] 1.4 10 3/uL 1.2-3.8 [facility] Lymphocytes/100 WBC Auto (Bl d)Ordered By: Osbaldo Marlow on 06-09-2025 Lymphocytes/100 WBC (Bld) 17.3 % Low 20.5-60.0 [facility] MCH Auto (RBC) [Entitic mass ]Ordered By: Osbaldo Marlow on 06-09-2025 MCH (RBC) [Entitic mass] 29.3 pg 26.7-34.0 [facility] MCHC Auto (RBC) [Mass/Vol]Or dered By: Osbaldo Marlow on 06-09-2025 MCHC (RBC) [Mass/Vol] 32.7 g/dL 29.9-35.2 [facility] MCV Auto (RBC) [Entitic vol] Ordered By: Osbaldo Marlow on 06-09-2025 MCV (RBC) [Entitic vol] 89.6 fL 81.0-99.0 [facility] Monocytes Auto (Bld) [#/Vol] Ordered By: Osbaldo Marlow on 06-09-2025 Monocytes (Bld) [#/Vol] 0.5 10 3/uL 0.3-0.8 [facility] Monocytes/100 WBC Auto (Bld) Ordered By: Osbaldo Marlow on 06-09-2025 Monocytes/100 WBC (Bld) 6.5 % 1.7-12.0 [facility] Neutrophils Auto (Bld) [#/Vo l]Ordered By: Osbaldo Marlow on 06-09-2025 Neutrophils (Bld) [#/Vol] 6.1 10 3/uL 1.4-6.5 [facility] Neutrophils/100 WBC Auto (Bl d)Ordered By: Osbaldo Marlow on 06-09-2025 Neutrophils/100 WBC (Bld) 72.9 % 43.0-75.0 [facility] No Panel InformationOrdered By: Osbaldo Marlow on 06-09-2025 1.3 mg/dL Low 1.8-2.4 [facility] 3.8 mg/dL 2.6-4.7 [facility] 0.2 10 3/uL 0.0-0.7 [facility] 0.03 10 3/uL 0.00-0.03 [facility] 0.4 % 0.0-0.5 [facility] No Panel InformationOrdered By: Cheng Aviles on 06-09-2025 1.7 g/dL Low 3.4-5.0 [facility] 104 U/L 46-116 [facility] 14 U/L 14-59 [facility] 13 U/L Low 15-37 [facility] 18.3 [facility] 28.0 mg/dL High 7.0-18.0 [facility] 8.1 mg/dL Low 8.5-10.1 [facility] 106 mmol/L 98-107 [facility] 29.8 mmol/L 21.0-32.0 [facility] 1.53 mg/dL High 0.55-1.02 [facility] 40 Low >=60 mL/min/1.73 m 2 [facility] 79 mg/dL 74-106 [facility] 2.7 mmol/L Critically low 3.5-5.1 [facility] 146 mmol/L High 136-145 [facility] 0.4 mg/dL 0.2-1.0 [facility] 6.6 g/dL 6.4-8.2 [facility] Platelet mean volume Auto (B ld) [Entitic vol]Ordered By: Osbaldo Marlow on 06-09-2025 Platelet mean volume (Bld) [Entitic vol] 11.2 fL 9.5-13.5 [facility] Platelets Auto (Bld) [#/Vol] Ordered By: Osbaldo Marlow on 06-09-2025 Platelets (Bld) [#/Vol] 222 10 3/uL 150-450 [facility] RBC Auto (Bld) [#/Vol]Ordere d By: Osbaldo Marlow on 06-09-2025 RBC (Bld) [#/Vol] 3.55 10 6/uL Low 4.20-5.40 [facility] Serum or plasma albumin/glob ulin mass ratioOrdered By: Cheng Aviles on 06-09-2025 Albumin/Globulin [Mass ratio] 0.3 {ratio} [facility] Serum or plasma anion gap de terminationOrdered By: Cheng Aviles on 06-09-2025 Anion gap [Moles/Vol] 12.9 mmol/L [facility] Basophils Auto (Bld) [#/Vol] Ordered By: Jarred Galan on 06-08-2025 Basophils (Bld) [#/Vol] 0.1 10 3/uL 0.0-0.1 [facility] Basophils/100 WBC Auto (Bld) Ordered By: Jarred Galan on 06-08-2025 Basophils/100 WBC (Bld) 1.2 % 0.2-2.0 [facility] Eosinophils/100 WBC Auto (Bl d)Ordered By: Jarred Galan on 06-08-2025 Eosinophils/100 WBC (Bld) 1.9 % 0.9-7.0 [facility] Erythrocyte distribution wid th Auto (RBC) [Ratio]Ordered By: Jarred Galan on 06-08-2025 Erythrocyte distribution width (RBC) [Ratio] 16.1 % High 11.0-15.0 [facility] Estimated glomerular filtrat ion rate (GFR) non- AmericanOrdered By: Jarred Galan on 06-08-2025 GFR/1.73 sq M.predicted among non-blacks MDRD (S/P/Bld) [Vol rate/Area] 29 mL/min/{1.73_m2} Low >=60 mL/min/1.73 m 2 [facility] Hematocrit Auto (Bld) [Volum e fraction]Ordered By: Jarred Galan on 06-08-2025 Hematocrit (Bld) [Volume fraction] 35.3 % Low 36.0-48.0 [facility] Hemoglobin [Mass/volume] in BloodOrdered By: Jarred Galan on 06-08-2025 Hemoglobin (Bld) [Mass/Vol] 11.4 g/dL Low 12.0-16.0 [facility] Leukocytes [#/volume] correc gali for nucleated erythrocytes in Blood by Automated counOrdered By: Jarred Galan on 06-08-2025 WBC corrected for nucl RBC Auto (Bld) [#/Vol] 8.5 10 3/uL 4.0-11.0 [facility] Lymphocytes Auto (Bld) [#/Vo l]Ordered By: Jarred Galan on 06-08-2025 Lymphocytes (Bld) [#/Vol] 1.1 10 3/uL Low 1.2-3.8 [facility] Lymphocytes/100 WBC Auto (Bl d)Ordered By: Jarred Galan on 06-08-2025 Lymphocytes/100 WBC (Bld) 13.3 % Low 20.5-60.0 [facility] MCH Auto (RBC) [Entitic mass ]Ordered By: Jarred Galan on 06-08-2025 MCH (RBC) [Entitic mass] 29.2 pg 26.7-34.0 [facility] MCHC Auto (RBC) [Mass/Vol]Or dered By: Jarred Galan on 06-08-2025 MCHC (RBC) [Mass/Vol] 32.3 g/dL 29.9-35.2 [facility] MCV Auto (RBC) [Entitic vol] Ordered By: Jarred Galan on 06-08-2025 MCV (RBC) [Entitic vol] 90.3 fL 81.0-99.0 [facility] Monocytes Auto (Bld) [#/Vol] Ordered By: Jarred Galan on 06-08-2025 Monocytes (Bld) [#/Vol] 0.4 10 3/uL 0.3-0.8 [facility] Monocytes/100 WBC Auto (Bld) Ordered By: Jarred Galan on 06-08-2025 Monocytes/100 WBC (Bld) 5.2 % 1.7-12.0 [facility] Neutrophils Auto (Bld) [#/Vo l]Ordered By: Jarred Galan on 06-08-2025 Neutrophils (Bld) [#/Vol] 6.6 10 3/uL High 1.4-6.5 [facility] Neutrophils/100 WBC Auto (Bl d)Ordered By: Jarred Galan on 06-08-2025 Neutrophils/100 WBC (Bld) 78.2 % High 43.0-75.0 [facility] No Panel InformationOrdered By: Jarred Galan on 06-08-2025 SEEN #/LPF Abnormal NONE SEEN [facility] None Seen #/HPF None Seen [facility] TRACE #/HPF Abnormal NONE SEEN [facility] MODERATE [facility] CLEAR CLEAR [facility] LT. YELLOW YELLOW [facility] 250 mg/dL Abnormal NEGATIVE [facility] SMALL Abnormal NONE SEEN [facility] 6.5 5.0-9.0 [facility] >=300 mg/dL Abnormal NEG/TRACE [facility] 0-2 #/HPF 0-2 [facility] 1.020 1.005-1.025 [facility] FEW #/LPF Abnormal NONE/RARE [facility] RARE #/LPF Abnormal NONE SEEN [facility] 0.2 EU/dL 0.2-1.0 [facility] 2-5 #/HPF Abnormal NONE SEEN [facility] Negative NEGATIVE [facility] 23034.0 pg/mL Critically high <=1800.0 [facility] 26.7 pg/mL 4.0-51.3 [facility] 0.7 mmol/L 0.4-2.0 [facility] 17.8 [facility] 30.0 mg/dL High 7.0-18.0 [facility] 0.2 10 3/uL 0.0-0.7 [facility] 8.7 mg/dL 8.5-10.1 [facility] 105 mmol/L 98-107 [facility] 30.5 mmol/L 21.0-32.0 [facility] 1.69 mg/dL High 0.55-1.02 [facility] 0.02 10 3/uL 0.00-0.03 [facility] 35 Low >=60 mL/min/1.73 m 2 [facility] 0.2 % 0.0-0.5 [facility] 177 mg/dL High 74-106 [facility] 3.2 mmol/L Low 3.5-5.1 [facility] 144 mmol/L 136-145 [facility] Platelet mean volume Auto (B ld) [Entitic vol]Ordered By: Jarred Galan on 06-08-2025 Platelet mean volume (Bld) [Entitic vol] 9.8 fL 9.5-13.5 [facility] Platelets Auto (Bld) [#/Vol] Ordered By: Jarred Galan on 06-08-2025 Platelets (Bld) [#/Vol] 291 10 3/uL 150-450 [facility] RBC Auto (Bld) [#/Vol]Ordere d By: Jarred Galan on 06-08-2025 RBC (Bld) [#/Vol] 3.91 10 6/uL Low 4.20-5.40 [facility] Serum or plasma anion gap de terminationOrdered By: Jarred Galan on 06-08-2025 Anion gap [Moles/Vol] 11.7 mmol/L [facility] Urine Cultureon 06-02-2025 Bacteria identified Cx Nom (U) 50,000 colonies/ml mixed bacterial skin contaminants 2 Days PERFORMED BY: [place] [address] PATHOLOGIST DELICATESSEN CLERK SIMON LINTON M.D. Normal [facility] Comment on above: Performed By: #### B TICKET MAKER, HS TROP, PT, CBC, BMP #### [address] Urine cultureOrdered By: Alessia Steven on 06-02-2025 Bacteria identified Cx Nom (U) 2 Days [facility] Estimated glomerular filtrat ion rate (GFR) non- AmericanOrdered By: Monica Stewart on 05-31-2025 GFR/1.73 sq M.predicted among non-blacks MDRD (S/P/Bld) [Vol rate/Area] 31 mL/min/{1.73_m2} Low >=60 mL/min/1.73 m 2 [facility] No Panel InformationOrdered By: Monica Stewart on 05-31-2025 31.3 [facility] 50.0 mg/dL High 7.0-18.0 [facility] 8.2 mg/dL Low 8.5-10.1 [facility] 106 mmol/L 98-107 [facility] 26.2 mmol/L 21.0-32.0 [facility] 1.60 mg/dL High 0.55-1.02 [facility] 38 Low >=60 mL/min/1.73 m 2 [facility] 103 mg/dL 74-106 [facility] 3.8 mmol/L 3.5-5.1 [facility] 142 mmol/L 136-145 [facility] Serum or plasma anion gap de terminationOrdered By: Monica Stewart on 05-31-2025 Anion gap [Moles/Vol] 13.6 mmol/L [facility] Erythrocyte distribution wid th Auto (RBC) [Ratio]Ordered By: Monica Stewart on 05-30-2025 Erythrocyte distribution width (RBC) [Ratio] 17.2 % High 11.0-15.0 [facility] Estimated glomerular filtrat ion rate (GFR) non- AmericanOrdered By: Monica Stewart on 05-30-2025 GFR/1.73 sq M.predicted among non-blacks MDRD (S/P/Bld) [Vol rate/Area] 28 mL/min/{1.73_m2} Low >=60 mL/min/1.73 m 2 [facility] Hematocrit Auto (Bld) [Volum e fraction]Ordered By: Monica Stewart on 05-30-2025 Hematocrit (Bld) [Volume fraction] 32.9 % Low 36.0-48.0 [facility] Hemoglobin [Mass/volume] in BloodOrdered By: Monica Stewart on 05-30-2025 Hemoglobin (Bld) [Mass/Vol] 10.6 g/dL Low 12.0-16.0 [facility] Leukocytes [#/volume] correc gali for nucleated erythrocytes in Blood by Automated counOrdered By: Monica Stewart on 05-30-2025 WBC corrected for nucl RBC Auto (Bld) [#/Vol] 18.7 10 3/uL High 4.0-11.0 [facility] MCH Auto (RBC) [Entitic mass ]Ordered By: Monica Stewart on 05-30-2025 MCH (RBC) [Entitic mass] 29.7 pg 26.7-34.0 [facility] MCHC Auto (RBC) [Mass/Vol]Or dered By: Monica Stewart on 05-30-2025 MCHC (RBC) [Mass/Vol] 32.2 g/dL 29.9-35.2 [facility] MCV Auto (RBC) [Entitic vol] Ordered By: Monica Stewart on 05-30-2025 MCV (RBC) [Entitic vol] 92.2 fL 81.0-99.0 [facility] No Panel InformationOrdered By: Monica Stewart on 05-30-2025 1.8 mg/dL 1.8-2.4 [facility] 26.4 [facility] 47.0 mg/dL High 7.0-18.0 [facility] 8.5 mg/dL 8.5-10.1 [facility] 106 mmol/L 98-107 [facility] 27.5 mmol/L 21.0-32.0 [facility] 1.78 mg/dL High 0.55-1.02 [facility] 33 Low >=60 mL/min/1.73 m 2 [facility] 97 mg/dL 74-106 [facility] 4.0 mmol/L 3.5-5.1 [facility] 143 mmol/L 136-145 [facility] Platelet mean volume Auto (B ld) [Entitic vol]Ordered By: Monica Stewart on 05-30-2025 Platelet mean volume (Bld) [Entitic vol] 10.3 fL 9.5-13.5 [facility] Platelets Auto (Bld) [#/Vol] Ordered By: Monica Stewart on 05-30-2025 Platelets (Bld) [#/Vol] 183 10 3/uL 150-450 [facility] RBC Auto (Bld) [#/Vol]Ordere d By: Monica Stewart on 05-30-2025 RBC (Bld) [#/Vol] 3.57 10 6/uL Low 4.20-5.40 [facility] Serum or plasma anion gap de terminationOrdered By: Monica Stewart on 05-30-2025 Anion gap [Moles/Vol] 13.5 mmol/L [facility] Basophils/100 WBC Manual cnt (Bld)Ordered By: Moinca Stewart on 05-29-2025 Basophils/100 WBC (Bld) 0.0 % Low 0.2-2.0 [facility] Eosinophils/100 WBC Manual c nt (Bld)Ordered By: Monica Stewart on 05-29-2025 Eosinophils/100 WBC (Bld) 0.0 % Low 0.9-7.0 [facility] Erythrocyte distribution wid th Auto (RBC) [Ratio]Ordered By: Monica Stewart on 05-29-2025 Erythrocyte distribution width (RBC) [Ratio] 16.6 % High 11.0-15.0 [facility] Estimated glomerular filtrat ion rate (GFR) non- AmericanOrdered By: Monica Stewart on 05-29-2025 GFR/1.73 sq M.predicted among non-blacks MDRD (S/P/Bld) [Vol rate/Area] 33 mL/min/{1.73_m2} Low >=60 mL/min/1.73 m 2 [facility] Glucose mean value [Mass/vol ume] in Blood Estimated from glycated hemoglobinOrdered By: Monica Stewart on 05-29-2025 Average glucose Estimated from glycated hemoglobin (Bld) [Mass/Vol] 209 mg/dL [facility] System Hematocrit Auto (Bld) [Volum e fraction]Ordered By: Monica Stewart on 05-29-2025 Hematocrit (Bld) [Volume fraction] 32.2 % Low 36.0-48.0 [facility] Hemoglobin A1c percentageOrd ered By: Monica Stewart on 05-29-2025 HbA1c (Bld) [Mass fraction] 8.9 % High 4.5-6.2 [facility] Hemoglobin [Mass/volume] in BloodOrdered By: Monica Stewart on 05-29-2025 Hemoglobin (Bld) [Mass/Vol] 10.6 g/dL Low 12.0-16.0 [facility] Leukocytes [#/volume] correc gali for nucleated erythrocytes in Blood by Automated counOrdered By: Monica Stewart on 05-29-2025 WBC corrected for nucl RBC Auto (Bld) [#/Vol] 19.8 10 3/uL High 4.0-11.0 [facility] MCH Auto (RBC) [Entitic mass ]Ordered By: Monica Stewart on 05-29-2025 MCH (RBC) [Entitic mass] 29.9 pg 26.7-34.0 [facility] MCHC Auto (RBC) [Mass/Vol]Or dered By: Monica Stewart on 05-29-2025 MCHC (RBC) [Mass/Vol] 32.9 g/dL 29.9-35.2 [facility] MCV Auto (RBC) [Entitic vol] Ordered By: Monica Stewart on 05-29-2025 MCV (RBC) [Entitic vol] 91.0 fL 81.0-99.0 [facility] No Panel InformationOrdered By: Monica Stewart on 05-29-2025 1.2 mg/dL Low 1.8-2.4 [facility] 0.00 10 3/uL 0.00-0.70 [facility] 27.5 [facility] 42.0 mg/dL High 7.0-18.0 [facility] 8.3 mg/dL Low 8.5-10.1 [facility] 105 mmol/L 98-107 [facility] 0.59 10 3/uL Low 1.20-3.80 [facility] 28.4 mmol/L 21.0-32.0 [facility] 3.0 % Low 20.5-60.0 [facility] 1.53 mg/dL High 0.55-1.02 [facility] 1.18 10 3/uL High 0.30-0.80 [facility] 40 Low >=60 mL/min/1.73 m 2 [facility] 6.0 % 1.7-12.0 [facility] 18.01 10 3/uL High 1.4-6.5 [facility] 130 mg/dL High 74-106 [facility] 3.8 mmol/L 3.5-5.1 [facility] 143 mmol/L 136-145 [facility] Platelet mean volume Auto (B ld) [Entitic vol]Ordered By: Monica Stewart on 05-29-2025 Platelet mean volume (Bld) [Entitic vol] 10.3 fL 9.5-13.5 [facility] Platelets Auto (Bld) [#/Vol] Ordered By: Monica Stewart on 05-29-2025 Platelets (Bld) [#/Vol] 208 10 3/uL 150-450 [facility] RBC Auto (Bld) [#/Vol]Ordere d By: Monica Stewart on 05-29-2025 RBC (Bld) [#/Vol] 3.54 10 6/uL Low 4.20-5.40 [facility] Segmented neutrophils/100 WB C Manual cnt (Bld)Ordered By: Monica Stewart on 05-29-2025 Segmented neutrophils/100 WBC (Bld) 91.0 % High 43.0-75.0 [facility] Serum or plasma anion gap de terminationOrdered By: Monica Stewart on 05-29-2025 Anion gap [Moles/Vol] 13.4 mmol/L [facility] Basophils Auto (Bld) [#/Vol] Ordered By: Analisa Bryant on 05-28-2025 Basophils (Bld) [#/Vol] 0.1 10 3/uL 0.0-0.1 [facility] Basophils/100 WBC Auto (Bld) Ordered By: Analisa Bryant on 05-28-2025 Basophils/100 WBC (Bld) 1.3 % 0.2-2.0 [facility] Eosinophils/100 WBC Auto (Bl d)Ordered By: Analisa Bryant on 05-28-2025 Eosinophils/100 WBC (Bld) 3.3 % 0.9-7.0 [facility] Erythrocyte distribution wid th Auto (RBC) [Ratio]Ordered By: Analisa Bryant on 05-28-2025 Erythrocyte distribution width (RBC) [Ratio] 16.9 % High 11.0-15.0 [facility] Estimated glomerular filtrat ion rate (GFR) non- AmericanOrdered By: Analisa Bryant on 05-28-2025 GFR/1.73 sq M.predicted among non-blacks MDRD (S/P/Bld) [Vol rate/Area] 34 mL/min/{1.73_m2} Low >=60 mL/min/1.73 m 2 [facility] Hematocrit Auto (Bld) [Volum e fraction]Ordered By: Analisa Bryant on 05-28-2025 Hematocrit (Bld) [Volume fraction] 34.4 % Low 36.0-48.0 [facility] Hemoglobin [Mass/volume] in BloodOrdered By: Analisa Bryant on 05-28-2025 Hemoglobin (Bld) [Mass/Vol] 11.2 g/dL Low 12.0-16.0 [facility] Leukocytes [#/volume] correc gali for nucleated erythrocytes in Blood by Automated counOrdered By: Analisa Bryant on 05-28-2025 WBC corrected for nucl RBC Auto (Bld) [#/Vol] 6.9 10 3/uL 4.0-11.0 [facility] Lymphocytes Auto (Bld) [#/Vo l]Ordered By: Analisa Bryant on 05-28-2025 Lymphocytes (Bld) [#/Vol] 1.4 10 3/uL 1.2-3.8 [facility] Lymphocytes/100 WBC Auto (Bl d)Ordered By: Analisa Bryant on 05-28-2025 Lymphocytes/100 WBC (Bld) 20.0 % Low 20.5-60.0 [facility] MCH Auto (RBC) [Entitic mass ]Ordered By: Analisa Bryant on 05-28-2025 MCH (RBC) [Entitic mass] 29.7 pg 26.7-34.0 [facility] MCHC Auto (RBC) [Mass/Vol]Or dered By: Analisa Bryant on 05-28-2025 MCHC (RBC) [Mass/Vol] 32.6 g/dL 29.9-35.2 [facility] MCV Auto (RBC) [Entitic vol] Ordered By: Analisa Bryant on 05-28-2025 MCV (RBC) [Entitic vol] 91.2 fL 81.0-99.0 [facility] Monocytes Auto (Bld) [#/Vol] Ordered By: Analisa Bryant on 05-28-2025 Monocytes (Bld) [#/Vol] 0.6 10 3/uL 0.3-0.8 [facility] Monocytes/100 WBC Auto (Bld) Ordered By: Analisa Bryant on 05-28-2025 Monocytes/100 WBC (Bld) 8.9 % 1.7-12.0 [facility] Neutrophils Auto (Bld) [#/Vo l]Ordered By: Analisa Bryant on 05-28-2025 Neutrophils (Bld) [#/Vol] 4.6 10 3/uL 1.4-6.5 [facility] Neutrophils/100 WBC Auto (Bl d)Ordered By: Analisa Bryant on 05-28-2025 Neutrophils/100 WBC (Bld) 66.4 % 43.0-75.0 [facility] No Panel InformationOrdered By: Analisa Bryant on 05-28-2025 NO [facility] SEEN #/LPF Abnormal NONE SEEN [facility] Seen #/HPF Abnormal None Seen [facility] RARE [facility] TRACE #/HPF Abnormal NONE SEEN [facility] Negative NEGATIVE [facility] SMALL Abnormal NEGATIVE [facility] CLEAR CLEAR [facility] LT. YELLOW YELLOW [facility] 100 mg/dL Abnormal NEGATIVE [facility] NONE SEEN NONE SEEN [facility] 7.0 5.0-9.0 [facility] >=300 mg/dL Abnormal NEG/TRACE [facility] 0-2 #/HPF Abnormal NONE SEEN [facility] 1.020 1.005-1.025 [facility] RARE #/LPF NONE/[facility] 0.2 EU/dL 0.2-1.0 [facility] 6395.0 pg/mL Critically high <=1800.0 [facility] 18.7 pg/mL 4.0-51.3 [facility] 32.4 [facility] 48.0 mg/dL High 7.0-18.0 [facility] 0.2 10 3/uL 0.0-0.7 [facility] 8.5 mg/dL 8.5-10.1 [facility] 107 mmol/L 98-107 [facility] 29.3 mmol/L 21.0-32.0 [facility] 1.48 mg/dL High 0.55-1.02 [facility] 0.01 10 3/uL 0.00-0.03 [facility] 41 Low >=60 mL/min/1.73 m 2 [facility] 0.1 % 0.0-0.5 [facility] 64 mg/dL Low 74-106 [facility] 4.1 mmol/L 3.5-5.1 [facility] 143 mmol/L 136-145 [facility] Platelet mean volume Auto (B ld) [Entitic vol]Ordered By: Analisa Bryant on 05-28-2025 Platelet mean volume (Bld) [Entitic vol] 10.0 fL 9.5-13.5 [facility] Platelets Auto (Bld) [#/Vol] Ordered By: Analisa Bryant on 05-28-2025 Platelets (Bld) [#/Vol] 236 10 3/uL 150-450 [facility] RBC Auto (Bld) [#/Vol]Ordere d By: Analisa Bryant on 05-28-2025 RBC (Bld) [#/Vol] 3.77 10 6/uL Low 4.20-5.40 [facility] Serum or plasma anion gap de terminationOrdered By: Analisa Bryant on 05-28-2025 Anion gap [Moles/Vol] 10.8 mmol/L [facility] Basophils Auto (Bld) [#/Vol] Ordered By: Cheng Aviles on 05-11-2025 Basophils (Bld) [#/Vol] 0.1 10 3/uL 0.0-0.1 [facility] Basophils/100 WBC Auto (Bld) Ordered By: Cheng Aviles on 05-11-2025 Basophils/100 WBC (Bld) 1.2 % 0.2-2.0 [facility] Eosinophils/100 WBC Auto (Bl d)Ordered By: Cheng Aviles on 05-11-2025 Eosinophils/100 WBC (Bld) 2.7 % 0.9-7.0 [facility] Erythrocyte distribution wid th Auto (RBC) [Ratio]Ordered By: Cheng Aviles on 05-11-2025 Erythrocyte distribution width (RBC) [Ratio] 15.7 % High 11.0-15.0 [facility] Estimated glomerular filtrat ion rate (GFR) non- AmericanOrdered By: Rica Kaplan on 05-11-2025 GFR/1.73 sq M.predicted among non-blacks MDRD (S/P/Bld) [Vol rate/Area] 36 mL/min/{1.73_m2} Low >=60 mL/min/1.73 m 2 [facility] Hematocrit Auto (Bld) [Volum e fraction]Ordered By: Cheng Aviles on 05-11-2025 Hematocrit (Bld) [Volume fraction] 34.2 % Low 36.0-48.0 [facility] Hemoglobin [Mass/volume] in BloodOrdered By: Cheng Aviles on 05-11-2025 Hemoglobin (Bld) [Mass/Vol] 10.9 g/dL Low 12.0-16.0 [facility] Laboratory - Chemistry and C hemistry - challengeOrdered By: Rica Kaplan on 05-11-2025 Calcium [Mass/Vol] 8.6 mg/dL 8.5-10.1 [facility] Chloride [Moles/Vol] 107 mmol/L 98-107 [facility] CO2 [Moles/Vol] 27.7 mmol/L 21.0-32.0 [facility] Creatinine [Mass/Vol] 1.40 mg/dL High 0.55-1.02 [facility] GFR/1.73 sq M.predicted MDRD (S/P/Bld) [Vol rate/Area] 44 mL/min/{1.73_m2} Low >=60 mL/min/1.73 m 2 [facility] Glucose [Mass/Vol] 93 mg/dL 74-106 [facility] Potassium [Moles/Vol] 4.2 mmol/L 3.5-5.1 [facility] Sodium [Moles/Vol] 144 mmol/L 136-145 [facility] Urea nitrogen [Mass/Vol] 34.0 mg/dL High 7.0-18.0 [facility] Urea nitrogen/Creatinine [Mass ratio] 24.3 mg/mg [facility] Laboratory - Hematology and Cell countsOrdered By: Cheng Aviles on 05-11-2025 Immature granulocytes/100 WBC (Bld) 0.4 % 0.0-0.5 [facility] Leukocytes [#/volume] correc gali for nucleated erythrocytes in Blood by Automated counOrdered By: Cheng Aviles on 05-11-2025 WBC corrected for nucl RBC Auto (Bld) [#/Vol] 8.5 10 3/uL 4.0-11.0 [facility] Lymphocytes Auto (Bld) [#/Vo l]Ordered By: Cheng Aviles on 05-11-2025 Lymphocytes (Bld) [#/Vol] 1.4 10 3/uL 1.2-3.8 [facility] Lymphocytes/100 WBC Auto (Bl d)Ordered By: Cheng Aviles on 05-11-2025 Lymphocytes/100 WBC (Bld) 16.0 % Low 20.5-60.0 [facility] MCH Auto (RBC) [Entitic mass ]Ordered By: Cheng Aviles on 05-11-2025 MCH (RBC) [Entitic mass] 28.5 pg 26.7-34.0 [facility] MCHC Auto (RBC) [Mass/Vol]Or dered By: Cheng Aviles on 05-11-2025 MCHC (RBC) [Mass/Vol] 31.9 g/dL 29.9-35.2 [facility] MCV Auto (RBC) [Entitic vol] Ordered By: Cheng Aviles on 05-11-2025 MCV (RBC) [Entitic vol] 89.5 fL 81.0-99.0 [facility] Monocytes Auto (Bld) [#/Vol] Ordered By: Cheng Aviles on 05-11-2025 Monocytes (Bld) [#/Vol] 0.6 10 3/uL 0.3-0.8 [facility] Monocytes/100 WBC Auto (Bld) Ordered By: Cheng Aviles on 05-11-2025 Monocytes/100 WBC (Bld) 7.5 % 1.7-12.0 [facility] Neutrophils Auto (Bld) [#/Vo l]Ordered By: Cheng Aviles on 05-11-2025 Neutrophils (Bld) [#/Vol] 6.1 10 3/uL 1.4-6.5 [facility] Neutrophils/100 WBC Auto (Bl d)Ordered By: Cheng Aviles on 05-11-2025 Neutrophils/100 WBC (Bld) 72.2 % 43.0-75.0 [facility] No Panel InformationOrdered By: Cheng Aviles on 05-11-2025 Eosinophils # (Auto) 0.2 10 3/uL 0.0-0.7 [facility] Immature Granulocyte # (Auto) 0.03 10 3/uL 0.00-0.03 [facility] 0.2 10 3/uL 0.0-0.7 [facility] 0.03 10 3/uL 0.00-0.03 [facility] 0.4 % 0.0-0.5 [facility] No Panel InformationOrdered By: Rica Kaplan on 05-11-2025 24.3 [facility] 34.0 mg/dL High 7.0-18.0 [facility] 8.6 mg/dL 8.5-10.1 [facility] 107 mmol/L 98-107 [facility] 27.7 mmol/L 21.0-32.0 [facility] 1.40 mg/dL High 0.55-1.02 [facility] 44 Low >=60 mL/min/1.73 m 2 [facility] 93 mg/dL 74-106 [facility] 4.2 mmol/L 3.5-5.1 [facility] 144 mmol/L 136-145 [facility] Platelet mean volume Auto (B ld) [Entitic vol]Ordered By: Cheng Aviles on 05-11-2025 Platelet mean volume (Bld) [Entitic vol] 10.0 fL 9.5-13.5 [facility] Platelets Auto (Bld) [#/Vol] Ordered By: Cheng Aviles on 05-11-2025 Platelets (Bld) [#/Vol] 279 10 3/uL 150-450 [facility] RBC Auto (Bld) [#/Vol]Ordere d By: Cheng Aviles on 05-11-2025 RBC (Bld) [#/Vol] 3.82 10 6/uL Low 4.20-5.40 [facility] Serum or plasma anion gap de terminationOrdered By: Rica Kaplan on 05-11-2025 Anion gap [Moles/Vol] 13.5 mmol/L [facility] Telephoneon 05-07-2025 Telephone [phone] Joe Call 1945 F Date Provider Department Center 05/07/2025 TerrellJavedRussellAMANDA DESHAWN [facility] Family History Problem Relation Age of Onset Heart disease Mother Heart attack Father Coronary artery disease Other Diabetes Other Polycystic kidney disease Other Family Status - Relation Status Age at Mother Father Sister Brother Other Normal [facility] Office Visiton 04-22-2025 Follow-up visit [id number] Joe Call 1945 Provider Department Center 04/22/2025 RICA DEAN CARD [facility] Family History Problem Relation Age of Onset Heart disease Mother Heart attack Father Coronary artery disease Other Diabetes Other Polycystic kidney disease Other Family Status - Relation Status Age at Mother Father Sister Brother Other Level of Service:04013 [place] OFFICE/OUTPATIENT ESTABLISHED HIGH MDM 40 MIN Normal [facility] Alanine aminotransferase [En zymatic activity/volume] in Serum or PlasmaOrdered By: Jorge Calix on 03-12-2025 ALT [Catalytic activity/Vol] Alanine aminotransferase [Enzymatic activity/volume] in Serum or Plasma [address] [place] [address] ALT [Catalytic activity/Vol] 9 U/L Normal [address] [place] [address] Comment on above: Performed By: #### C MP #### [address] Albumin [Mass/volume] in Ser um or Plasma by Bromocresol green (BCG) dye binding methoOrdered By: Jorge Calix on 03-12-2025 Albumin BCG dye [Mass/Vol] Albumin [Mass/volume] in Serum or Plasma by Bromocresol green (BCG) dye binding metho Low 3.5-5.7 [facility] Albumin BCG dye [Mass/Vol] 3.0 g/dL Low 3.5-5.7 [facility] Alkaline phosphatase [Enzyma tic activity/volume] in Serum or PlasmaOrdered By: Jorge Calix on 03-12-2025 ALP [Catalytic activity/Vol] Alkaline phosphatase [Enzymatic activity/volume] in Serum or Plasma 34-104 [facility] ALP [Catalytic activity/Vol] 104 U/L Normal 34-104 [facility] Comment on above: Performed By: #### C MP #### [address] Appearance of UrineOrdered B y: Jorge Calix on 03-12-2025 Appearance (U) Urine appearance Clear [facility] Appearance (U) Clear Normal Clear [facility] Comment on above: Order Comment: Name Collection Type:: Other Performed By: #### B TICKET MAKER, HS TROP, PT, CBC, BMP #### [address] Aspartate aminotransferase [ Enzymatic activity/volume] in Serum or PlasmaOrdered By: Jorge Calix on 03-12-2025 AST [Catalytic activity/Vol] Aspartate aminotransferase [Enzymatic activity/volume] in Serum or Plasma Low 1339 [facility] AST [Catalytic activity/Vol] 11 U/L [address] [facility] Comment on above: Performed By: #### C MP #### [address] BNP ser/plasOrdered By: Steven Calix on 03-12-2025 Natriuretic peptide B (Bld) [Mass/Vol] 773.0 pg/mL High 5-100 [facility] Comment on above: Result Comment: PERF ORMED BY: [place] [address] PATHOLOGIST DELICATESSEN CLERK MAY HYDE M.D. Performed By: #### B TICKET MAKER, HS TROP, PT, CBC, BMP #### [address] Bacteria [Presence] in Urine by AutomatedOrdered By: Jorge Calix on 03-12-2025 Bacteria Auto Ql (U) Bacteria [Presence] in Urine by Automated High None Seen [facility] Bacteria Auto Ql (U) 2+ [HPF] High None Seen [facility] Basic Metabolic Panelon Creatinine Clr Calc Pharmacy 35.31 Normal [facility] Comment on above: Performed By: #### C MP #### [address] Estimated GFR 31.389 mL/Min Normal [facility] Comment on above: Performed By: #### C MP #### [address] Basophils Auto (Bld) [#/Vol] Ordered By: Jorge Calix on 03-12-2025 Basophils (Bld) [#/Vol] Automated basophil count 0.0-0.2 [facility] Basophils [#/volume] in Bloo d by Automated countOrdered By: Jorge Calix on 03-12-2025 Basophils (Bld) [#/Vol] 0.1 10*3/uL Normal 0.0-0.2 [facility] Comment on above: Result Comment: PERF ORMED BY: [place] [address] PATHOLOGIST DELICATESSEN CLERK MAY HYDE M.D. Performed By: #### B TICKET MAKER, HS TROP, PT, CBC, BMP #### [address] Basophils/100 WBC Auto (Bld) Ordered By: Jorge Calix on 03-12-2025 Basophils/100 WBC (Bld) Automated basophil % . [facility] Basophils/100 leukocytes in Blood by Automated countOrdered By: Jorge Calix on 03-12-2025 Basophils/100 WBC (Bld) 0.8 % Normal . [facility] Comment on above: Performed By: #### B TICKET MAKER, HS TROP, PT, CBC, BMP #### [facility] [address] [place] [address] Bilirubin Test strip Ql (U)O rdered By: Jorge Calix on 03-12-2025 Bilirubin Ql (U) Bilirubin.total [Presence] in Urine by Test strip Negative [facility] Bilirubin Ql (U) Negative Negative [facility] Bilirubin.direct [Mass/volum e] in Serum or PlasmaOrdered By: Jorge Calix on 03-12-2025 Bilirubin.direct [Mass/Vol] Bilirubin.direct [Mass/volume] in Serum or Plasma 0.03-0.18 [facility] Bilirubin.direct [Mass/Vol] 0.10 mg/dL 0.03-0.18 [facility] Bilirubin.total [Mass/volume ] in Serum or PlasmaOrdered By: Jorge Calix on 03-12-2025 Bilirubin [Mass/Vol] Bilirubin.total [Mass/volume] in Serum or Plasma 0.3-1.0 [facility] Bilirubin [Mass/Vol] 0.5 mg/dL Normal 0.3-1.0 [facility] Comment on above: Performed By: #### C MP #### [address] Calcium [Mass/volume] in Ser um or PlasmaOrdered By: Jorge Calix on 03-12-2025 Calcium [Mass/Vol] Calcium [Mass/volume ] in Serum or Plasma Low 8.6-10.3 [facility] Calcium [Mass/Vol] 8.3 mg/dL Low 8.6-10.3 [facility] Comment on above: Performed By: #### C MP #### [address] Capillary blood glucose wander urement by glucometer (mass/volume)Ordered By: Jorge Calix on 03-12-2025 Glucose [Mass/Vol] 364 mg/dL Normal [facility] Comment on above: Random Glucose Refer ence Range is dependent on time and content of last meal. Glucose of more than 200 mg/dL in a nonstressed, ambulatory subject supports the diagnosis of Diabetes Mellitus. Result Comment: [place] Glucose Reference Range is dependent on time and content of last meal. Glucose of more than 200 mg/dL in a nonstressed, ambulatory subject supports the diagnosis of Diabetes Mellitus. PERFORMED BY: [address] [place] [address] PATHOLOGIST DELICATESSEN CLERK MAY HYDE M.D. Performed By: #### B TICKET MAKER, HS TROP, PT, CBC, BMP #### [address] Carbon dioxide, total [Moles /volume] in Serum or PlasmaOrdered By: Jorge Calix on 03-12-2025 CO2 [Moles/Vol] Carbon dioxide, tota l [Moles/volume] in Serum or Plasma High 21.0-31.0 [facility] CO2 [Moles/Vol] 37.0 mmol/L High 21.0-31.0 [facility] Comment on above: Performed By: #### C MP #### [address] Chloride [Moles/volume] in S oziel or PlasmaOrdered By: Jorge Calix on 03-12-2025 Chloride [Moles/Vol] Chloride [Moles/vol ume] in Serum or Plasma Low 98-107 [facility] Chloride [Moles/Vol] 89 mmol/L Low 98-107 [facility] Comment on above: Performed By: #### C MP #### [address] Color Auto (U)Ordered By: Amilcar Calix on 03-12-2025 Color (U) Color of Urine by Auto Yellow [facility] Color of Urine by AutoOrdere d By: Jorge Calix on 03-12-2025 Color (U) Light-yellow Normal Yellow [facility] Comment on above: Order Comment: Name Collection Type:: Other Performed By: #### B TICKET MAKER, HS TROP, PT, CBC, BMP #### [address] Complete Blood Count Auto Di ffon 03-12-2025 Mean Corpuscular HGB Conc 33.3 g/dL Normal 32.0-35.0 [facility] Comment on above: Performed By: #### B TICKET MAKER, HS TROP, PT, CBC, BMP #### [place] [address] [place] Monocytes/100 WBC (Bld) 18.66 % Normal 0.00-20.00 [facility] Comment on above: Performed By: #### B TICKET MAKER, HS TROP, PT, CBC, BMP #### [address] NRBC% 0.1 /100{WBC} Normal 0-0.5 [facility] Comment on above: Performed By: #### B TICKET MAKER, HS TROP, PT, CBC, BMP #### [facility] [address] [id number] [place] Creatine kinase [Enzymatic a ctivity/volume] in Serum or PlasmaOrdered By: Jorge Calix on 03-12-2025 CK [Catalytic activity/Vol] Creatine kinase [Enzymatic activity/volume] in Serum or Plasma 30-223 [facility] CK [Catalytic activity/Vol] 57 U/L Normal 30-223 [facility] Comment on above: Performed By: #### B TICKET MAKER, HS TROP, PT, CBC, BMP #### [facility] [address] Creatinine [Mass/volume] in Serum or PlasmaOrdered By: Jorge Calix on 03-12-2025 Creatinine [Mass/Vol] Creatinine [Mass/v olume] in Serum or Plasma High 0.60-1.20 [facility] Creatinine [Mass/Vol] 1.66 mg/dL High 0.60-1.20 [facility] Comment on above: Performed By: #### C MP #### [address] Dipstick and Microscopicon 0 03-12-2025 Bacteria,Urine 2+ High None Seen [facility] Comment on above: Order Comment: Name Collection Type:: Other Performed By: #### B TICKET MAKER, HS TROP, PT, CBC, BMP #### [place] [address] [place] Bilirubin,Urine Negative Normal Negative [facility] Comment on above: Order Comment: Name Collection Type:: Other Performed By: #### B TICKET MAKER, HS TROP, PT, CBC, BMP #### [place] [id number] [place] Glucose Ql (U) >= High Normal [facility] Comment on above: Order Comment: Name Collection Type:: Other Performed By: #### B TICKET MAKER, HS TROP, PT, CBC, BMP #### [facility] [address] [id number] [facility] Hyaline Casts,Urine 0-8 Normal 0-8 [facility] Comment on above: Order Comment: Name Collection Type:: Other Result Comment: PERF ORMED BY: [place] [id number] PATHOLOGIST DELICATESSEN CLERK MAY HYDE M.D. Performed By: #### B TICKET MAKER, HS TROP, PT, CBC, BMP #### [place] [address] [place] Nitrite,Urine Negative Normal Negative [facility] Comment on above: Order Comment: Name Collection Type:: Other Performed By: #### B TICKET MAKER, HS TROP, PT, CBC, BMP #### [place] [address] [place] Occult Blood,Urine Negative Normal Negative [facility] Comment on above: Order Comment: Name Collection Type:: Other Result Comment: PERF ORMED BY: [place] [address] PATHOLOGIST DELICATESSEN CLERK MAY HYDE M.D. Performed By: #### B TICKET MAKER, HS TROP, PT, CBC, BMP #### [place] [address] [place] RBC,Urine 1-2 Normal 0-4 [facility] Comment on above: Order Comment: Name Collection Type:: Other Performed By: #### B TICKET MAKER, HS TROP, PT, CBC, BMP #### [place] [address] [place] Specificy [place],Urine 1.012 Normal 1.001-1.030 [facility] Comment on above: Order Comment: Name Collection Type:: Other Performed By: #### B TICKET MAKER, HS TROP, PT, CBC, BMP #### [place] [address] [place] Squamous Epithelial Cell,Urine 1-2 Normal 0-2 [facility] Comment on above: Order Comment: Name Collection Type:: Other Performed By: #### B TICKET MAKER, HS TROP, PT, CBC, BMP #### [place] [address] [place] Urobilinogen,Urine Normal Normal Normal [facility] Comment on above: Order Comment: Name Collection Type:: Other Performed By: #### B TICKET MAKER, HS TROP, PT, CBC, BMP #### [address] WBC,Urine 3-4 Normal 0-4 [facility] Comment on above: Order Comment: Name Collection Type:: Other Performed By: #### B TICKET MAKER, HS TROP, PT, CBC, BMP #### [facility] [address] ECG 12 lead ECGon 03-12-2025 ECG 12 lead ECG [facility] [place] [address] [place] [address] Electrocardiograph Report Signed Patient: Joe Call MR#: [id number] 0 : 1945 Acct:[id number] Age/Sex: 79 / F ADM Date: 03/12/25 Loc: ER Room: Type: [facility] ER Attending Dr: Ordering Provider: [...] 30 bpm Confirmed by Jorge Calix DO ([id number]) on 03/12/2025 6:57:40 PM Referred By: Electronically Signed By: Jorge Calix DO Transcribed By: MUS Signed By Jorge Calix DO 5 [phone] Normal [facility] Eosinophils Auto (Bld) [#/Vo l]Ordered By: Jorge Calix on 03-12-2025 Eosinophils (Bld) [#/Vol] Automated eosinophil count 0.0-0.45 [facility] Eosinophils [#/volume] in Bl ood by Automated countOrdered By: Jorge Calix on 03-12-2025 Eosinophils (Bld) [#/Vol] 0.1 10*3/uL Normal 0.0-0.45 [facility] Comment on above: Performed By: #### B TICKET MAKER, HS TROP, PT, CBC, BMP #### [facility] [address] Eosinophils/100 WBC Auto (Bl d)Ordered By: Jorge Calix on 03-12-2025 Eosinophils/100 WBC (Bld) Automated eosinophil % . [facility] Eosinophils/100 leukocytes i n Blood by Automated countOrdered By: Jorge Calix on 03-12-2025 Eosinophils/100 WBC (Bld) 1.0 % Normal . [facility] Comment on above: Performed By: #### B TICKET MAKER, HS TROP, PT, CBC, BMP #### [address] Epithelial cells.squamous [# /area] in Urine sediment by Automated countOrdered By: Jorge Calix on 03-12-2025 Epithelial cells.squamous Auto (Urine sed) [#/Area] Epithelial cells.squamous [#/area] in Urine sediment by Automated count 0-2 [facility] Epithelial cells.squamous Auto (Urine sed) [#/Area] 1-2 [HPF] 0-2 [facility] Erythrocyte distribution wid th Auto (RBC) [Ratio]Ordered By: Jorge Calix on 03-12-2025 Erythrocyte distribution width (RBC) [Ratio] Erythrocyte distribution width [Ratio] by Automated count 11.9-15.3 [facility] Erythrocyte distribution wid th [Ratio] by Automated countOrdered By: Jorge Calix on 03-12-2025 Erythrocyte distribution width (RBC) [Ratio] 14.5 % Normal 11.9-15.3 [facility] Comment on above: Performed By: #### B TICKET MAKER, HS TROP, PT, CBC, BMP #### [address] Erythrocytes [#/area] in Uri ne sediment by Automated countOrdered By: Jorge Calix on 03-12-2025 RBC Auto (Urine sed) [#/Area] Erythrocytes [#/area] in Urine sediment by Automated count 0-4 [facility] RBC Auto (Urine sed) [#/Area] 1-2 [HPF] 0-4 [facility] Erythrocytes [#/volume] in B lood by Automated countOrdered By: Jorge Calix on 03-12-2025 RBC (Bld) [#/Vol] 4.33 10*6/uL Normal 3.60-5.00 [facility] Comment on above: Performed By: #### B TICKET MAKER, HS TROP, PT, CBC, BMP #### [facility] [address] Globulin Calc (S) [Mass/Vol] Ordered By: Jorge Calix on 03-12-2025 Globulin (S) [Mass/Vol] Serum globulin measurement by calculation (mass/volume) [facility] Glucose Glucometer (BldC) [M ass/Vol]Ordered By: Jorge Calix on 03-12-2025 Glucose [Mass/Vol] Capillary blood gluc ose measurement by glucometer (mass/volume) [facility] Glucose [Mass/volume] in Ser um or PlasmaOrdered By: Jorge Calix on 03-12-2025 Glucose [Mass/Vol] Glucose [Mass/volume ] in Serum or Plasma Critically high 70-100 [facility] Glucose [Mass/Vol] 520 mg/dL Off scale high 70-100 [facility] Comment on above: Critical Result Call ed [...] recommended reference range Performed By: #### C MP #### [facility] [address] Glucose [Mass/volume] in Uri ne by Test stripOrdered By: Jorge Calix on 03-12-2025 Glucose Test strip (U) [Mass/Vol] Glucose [Mass/volume] in Urine by Test strip High Normal [facility] Glucose Test strip (U) [Mass/Vol] >=1000 mg/dL High Normal [facility] Hematocrit Auto (Bld) [Volum e fraction]Ordered By: Jorge Calix on 03-12-2025 Hematocrit (Bld) [Volume fraction] Hematocrit [Volume Fraction] of Blood by Automated count 34.0-46.4 [facility] Hematocrit [Volume Fraction] of Blood by Automated countOrdered By: Jorge Calix on 03-12-2025 Hematocrit (Bld) [Volume fraction] 38.3 % Normal 34.0-46.4 [facility] Comment on above: Performed By: #### B TICKET MAKER, HS TROP, PT, CBC, BMP #### [address] Hemoglobin Test strip Ql (U) Ordered By: Jorge Calix on 03-12-2025 Hemoglobin Ql (U) Hemoglobin [Presence ] in Urine by Test strip Negative [facility] Hemoglobin Ql (U) Negative Negative [facility] Hemoglobin [Mass/volume] in BloodOrdered By: Jorge Calix on 03-12-2025 Hemoglobin (Bld) [Mass/Vol] Hemoglobin [Mass/volume] in Blood 11.8-15.4 [facility] Hemoglobin (Bld) [Mass/Vol] 12.8 g/dL Normal 11.8-15.4 [facility] Comment on above: Performed By: #### B TICKET MAKER, HS TROP, PT, CBC, BMP #### [facility] [address] Hepatic Panelon 03-12-2025 Albumin [Mass/Vol] 3.0 g/dL Low 3.5-5.7 [facility] Comment on above: Performed By: #### C MP #### [address] Bilirubin,Indirect 0.4 mg/dL Normal [facility] Comment on above: Performed By: #### C MP #### [address] Bilirubin.indirect [Mass/Vol] 0.10 mg/dL Normal 0.03-0.18 [facility] Comment on above: Performed By: #### C MP #### [address] Hyaline casts [#/area] in Ur ine sediment by Automated countOrdered By: Jorge Calix on 03-12-2025 Hyaline casts Auto (Urine sed) [#/Area] Hyaline casts [#/area] in Urine sediment by Automated count 0-8 [facility] Hyaline casts Auto (Urine sed) [#/Area] 0-8 [LPF] 0-8 [facility] INR in Platelet poor plasma by Coagulation assayOrdered By: Jorge Calix on 03-12-2025 INR Coag (PPP) [Relative time] INR in Platelet poor plasma by Coagulation assay [facility] INR Coag (PPP) [Relative time] 1.7 {INR} Normal [facility] Comment on above: INR Therapeutic Rang e [...] heart valves: 3 - 4.5 PERFORMED BY: [place] [address] PATHOLOGIST DELICATESSEN CLERK MAY HYDE M.D. Performed By: #### B TICKET MAKER, HS TROP, PT, CBC, BMP #### [address] Ketones Test strip Ql (U)Ord ered By: Jorge Calix on 03-12-2025 Ketones Ql (U) Ketones [Presence] i n Urine by Test strip Negative [facility] Ketones [Presence] in Urine by Test stripOrdered By: Jorge Calix on 03-12-2025 Ketones Ql (U) Negative Normal Negative [facility] Comment on above: Order Comment: Name Collection Type:: Other Performed By: #### B TICKET MAKER, HS TROP, PT, CBC, BMP #### [facility] [address] [place] [id number] [facility] Leukocyte esterase [Presence ] in Urine by Test stripOrdered By: Jorge Calix on 03-12-2025 Leukocyte esterase Test strip Ql (U) Leukocyte esterase [Presence] in Urine by Test strip Negative [facility] Leukocyte esterase Test strip Ql (U) Negative Normal Negative [facility] Comment on above: Order Comment: Name Collection Type:: Other Performed By: #### B TICKET MAKER, HS TROP, PT, CBC, BMP #### [facility] [address] [place] [id number] [facility] Leukocytes [#/area] in Urine sediment by Automated countOrdered By: Jorge Calix on 03-12-2025 WBC Auto (Urine sed) [#/Area] Leukocytes [#/area] in Urine sediment by Automated count 0-4 [facility] WBC Auto (Urine sed) [#/Area] 3-4 [HPF] 0-4 [facility] Leukocytes [#/volume] correc gali for nucleated erythrocytes in Blood by Automated counOrdered By: Jorge Calix on 03-12-2025 WBC corrected for nucl RBC Auto (Bld) [#/Vol] Leukocytes [#/volume] corrected for nucleated erythrocytes in Blood by Automated coun 3.8-11.6 [facility] WBC corrected for nucl RBC Auto (Bld) [#/Vol] 9.0 10*3/uL 3.8-11.6 [facility] Leukocytes [#/volume] in Blo od by Automated countOrdered By: Jorge Calix on 03-12-2025 WBC (Bld) [#/Vol] 9.0 10*3/uL Normal 3.8-11.6 [facility] Comment on above: Performed By: #### B TICKET MAKER, HS TROP, PT, CBC, BMP #### [address] Lymphocytes Auto (Bld) [#/Vo l]Ordered By: Jorge Calix on 03-12-2025 Lymphocytes (Bld) [#/Vol] Lymphocytes [#/volume] in Blood by Automated count 1.00-4.8 [facility] Lymphocytes [#/volume] in Bl ood by Automated countOrdered By: Jorge Calix on 03-12-2025 Lymphocytes (Bld) [#/Vol] 1.3 10*3/uL Normal 1.00-4.8 [facility] Comment on above: Performed By: #### B TICKET MAKER, HS TROP, PT, CBC, BMP #### [address] Lymphocytes/100 WBC Auto (Bl d)Ordered By: Jorge Calix on 03-12-2025 Lymphocytes/100 WBC (Bld) Lymphocytes/100 leukocytes in Blood by Automated count . [facility] Lymphocytes/100 leukocytes i n Blood by Automated countOrdered By: Jorge Calix on 03-12-2025 Lymphocytes/100 WBC (Bld) 14.2 % Normal . [facility] Comment on above: Performed By: #### B TICKET MAKER, HS TROP, PT, CBC, BMP #### [address] MCH Auto (RBC) [Entitic mass ]Ordered By: Jorge Calix on 03-12-2025 MCH (RBC) [Entitic mass] MCH [Entitic mass] by Automated count 24.7-34.3 [facility] MCH [Entitic mass] by Automa gali countOrdered By: Jorge Calix on 03-12-2025 MCH (RBC) [Entitic mass] 29.5 pg Normal 24.7-34.3 [facility] Comment on above: Performed By: #### B TICKET MAKER, HS TROP, PT, CBC, BMP #### [address] MCHC Auto (RBC) [Mass/Vol]Or dered By: Jorge Calix on 03-12-2025 MCHC (RBC) [Mass/Vol] MCHC [Mass/volume] by Automated count 32.0-35.0 [facility] MCHC (RBC) [Mass/Vol] 33.3 g/dL 32.0-35.0 [facility] MCV Auto (RBC) [Entitic vol] Ordered By: Jorge Calix on 03-12-2025 MCV (RBC) [Entitic vol] MCV [Entitic volume] by Automated count 80-100 [facility] MCV [Entitic volume] by Auto mated countOrdered By: Jorge Calix on 03-12-2025 MCV (RBC) [Entitic vol] 88.4 fL Normal 80-100 [facility] Comment on above: Performed By: #### B TICKET MAKER, HS TROP, PT, CBC, BMP #### [facility] [address] [place] [address] Magnesium [Mass/volume] in S oziel or PlasmaOrdered By: Jorge Calix on 03-12-2025 Magnesium [Mass/Vol] Magnesium [Mass/vol ume] in Serum or Plasma Low 1.9-2.7 [facility] Magnesium [Mass/Vol] 1.1 mg/dL Low 1.9-2.7 [facility] Comment on above: Result Comment: PERF ORMED BY: [place] [address] PATHOLOGIST DELICATESSEN CLERK MAY HYDE M.D. Performed By: #### C MP #### [facility] [address] [place] [address] Monocyte distribution width [Entitic volume] in Blood by AutomatedOrdered By: Jorge Calix on 03-12-2025 Monocyte distribution width Auto (Bld) [Entitic vol] Monocyte distribution width [Entitic volume] in Blood by Automated 0.00-20.00 [facility] Monocyte distribution width Auto (Bld) [Entitic vol] 18.66 % 0.00-20.00 [facility] Monocytes Auto (Bld) [#/Vol] Ordered By: Jorge Calix on 03-12-2025 Monocytes (Bld) [#/Vol] Automated blood monocyte count 0.0-0.8 [facility] Monocytes [#/volume] in Bloo d by Automated countOrdered By: Jorge Calix on 03-12-2025 Monocytes (Bld) [#/Vol] 0.5 10*3/uL Normal 0.0-0.8 [facility] Comment on above: Performed By: #### B TICKET MAKER, HS TROP, PT, CBC, BMP #### [facility] [address] Monocytes/100 WBC Auto (Bld) Ordered By: Jorge Calix on 03-12-2025 Monocytes/100 WBC (Bld) Automated monocyte % . [facility] Monocytes/100 leukocytes in Blood by Automated countOrdered By: Jorge Calix on 03-12-2025 Monocytes/100 WBC (Bld) 5.9 % Normal . [facility] Comment on above: Performed By: #### B TICKET MAKER, HS TROP, PT, CBC, BMP #### [facility] [address] [place] [address] [place] Natriuretic peptide B [Mass/ Vol]Ordered By: Jorge Calix on 03-12-2025 Natriuretic peptide B (Bld) [Mass/Vol] BNP ser/plas High 5-100 [facility] Neutrophils Auto (Bld) [#/Vo l]Ordered By: Jorge Calix on 03-12-2025 Neutrophils (Bld) [#/Vol] Neutrophils [#/volume] in Blood by Automated count 1.8-7.7 [facility] Neutrophils [#/volume] in Bl ood by Automated countOrdered By: Jorge Calix on 03-12-2025 Neutrophils (Bld) [#/Vol] 7.0 10*3/uL Normal 1.8-7.7 [facility] Comment on above: Performed By: #### B TICKET MAKER, HS TROP, PT, CBC, BMP #### [facility] [address] Neutrophils/100 WBC Auto (Bl d)Ordered By: Jorge Calix on 03-12-2025 Neutrophils/100 WBC (Bld) Automated neutrophil % . [facility] Neutrophils/100 leukocytes i n Blood by Automated countOrdered By: Jorge Calix on 03-12-2025 Neutrophils/100 WBC (Bld) 78.1 % Normal . [facility] Comment on above: Performed By: #### B TICKET MAKER, HS TROP, PT, CBC, BMP #### [facility] [address] Nitrite Test strip Ql (U)Ord ered By: Jorge Calix on 03-12-2025 Nitrite Ql (U) Nitrite [Presence] i n Urine by Test strip Negative [facility] Nitrite Ql (U) Negative Negative [facility] No Panel InformationOrdered By: Jorge Calix on 03-12-2025 Estimated GFR (CKD-EPI) 31.389 mL/Min [facility] Creatinine Clearance (Chem 35.31 [facility] 31.389 mL/Min [facility] 35.31 [facility] Nucleated erythrocytes [Pres ence] in Blood by Automated countOrdered By: Jorge Calix on 03-12-2025 Nucleated RBC Auto Ql (Bld) Nucleated erythrocytes [Presence] in Blood by Automated count 0-0.5 [facility] Nucleated RBC Auto Ql (Bld) 0.1 /100{WBC} 0-0.5 [facility] Platelet mean volume Auto (B ld) [Entitic vol]Ordered By: Jorge Calix on 03-12-2025 Platelet mean volume (Bld) [Entitic vol] Platelet mean volume [Entitic volume] in Blood by Automated count 6.3-10.7 [facility] Platelet mean volume [Entiti c volume] in Blood by Automated countOrdered By: Jorge Calix on 03-12-2025 Platelet mean volume (Bld) [Entitic vol] 9.6 fL Normal 6.3-10.7 [facility] Comment on above: Performed By: #### B TICKET MAKER, HS TROP, PT, CBC, BMP #### [facility] [address] [place] [address] [place] Platelets Auto (Bld) [#/Vol] Ordered By: Jorge Calix on 03-12-2025 Platelets (Bld) [#/Vol] Platelets [#/volume] in Blood by Automated count 150-450 [facility] Platelets [#/volume] in Bloo d by Automated countOrdered By: Jorge Calix on 03-12-2025 Platelets (Bld) [#/Vol] 194 10*3/uL Normal 150-450 [facility] Comment on above: Performed By: #### B TICKET MAKER, HS TROP, PT, CBC, BMP #### [facility] [address] Potassium [Moles/volume] in Serum or PlasmaOrdered By: Jorge Calix on 03-12-2025 Potassium [Moles/Vol] Potassium [Moles/v olume] in Serum or Plasma 3.5-5.1 [facility] Potassium [Moles/Vol] 4.0 mmol/L Normal 3.5-5.1 [facility] Comment on above: Performed By: #### C MP #### [address] Protein Test strip (U) [Mass /Vol]Ordered By: Jorge Calix on 03-12-2025 Protein (U) [Mass/Vol] Protein [Mass/vol ume] in Urine by Test strip High Negative [facility] Protein [Mass/volume] in Ser um or PlasmaOrdered By: Jorge Calix on 03-12-2025 Protein [Mass/Vol] Protein [Mass/volume ] in Serum or Plasma 6.4-8.9 [facility] Protein [Mass/Vol] 7.0 g/dL Normal 6.4-8.9 [facility] Comment on above: Performed By: #### C MP #### [address] Protein [Mass/volume] in Uri ne by Test stripOrdered By: Jorge Calix on 03-12-2025 Protein (U) [Mass/Vol] 200 mg/dL High Negative [facility] Comment on above: Order Comment: Name Collection Type:: Other Performed By: #### B TICKET MAKER, HS TROP, PT, CBC, BMP #### [address] Prothrombin time (PT)Ordered By: Jorge Calix on 03-12-2025 PT Coag (PPP) [Time] Prothrombin time (PT) High 9.0- 12.9 [facility] PT Coag (PPP) [Time] 19.3 s High 9.0-12.9 [facility] Comment on above: A hematocrit value g reater than 55% may lead to inaccurate results in coagulation testing. Patients having hematocrit values >55% require a special collection tube for coagulation studies. Please contact the laboratory at [phone] for redraw instructions. Result Comment: A he matocrit value greater than 55% may lead to inaccurate results in coagulation testing. Patients having hematocrit values >55% require a special collection tube for coagulation studies. Please contact the laboratory at [phone] for redraw instructions. Performed By: #### B TICKET MAKER, HS TROP, PT, CBC, BMP #### [address] RBC Auto (Bld) [#/Vol]Ordere d By: Jorge Calix on 03-12-2025 RBC (Bld) [#/Vol] Erythrocytes [#/volu me] in Blood by Automated count 3.60-5.00 [facility] Serum globulin measurement b y calculation (mass/volume)Ordered By: Jorge Calix on 03-12-2025 Globulin (S) [Mass/Vol] 4.0 g/dL Normal [facility] Comment on above: Performed By: #### C MP #### [facility] [address] [place] [address] Serum or plasma albumin/glob ulin mass ratioOrdered By: Jorge Calix on 03-12-2025 Albumin/Globulin [Mass ratio] Serum or plasma albumin/globulin mass ratio [facility] Albumin/Globulin [Mass ratio] 0.8 {ratio} Normal [facility] Comment on above: Performed By: #### C MP #### [address] Serum or plasma anion gap de terminationOrdered By: Jorge Calix on 03-12-2025 Anion gap [Moles/Vol] Serum or plasma an ion gap determination 6.0-15.0 [facility] Anion gap [Moles/Vol] 12.0 mmol/L Normal 6.0-15.0 [facility] Comment on above: Performed By: #### C MP #### [address] Serum or plasma non-glucuron idated bilirubin measurement (mass/volume)Ordered By: Jorge Calix on 03-12-2025 Bilirubin.indirect [Mass/Vol] Serum or plasma non-glucuronidated bilirubin measurement (mass/volume) [facility] Bilirubin.indirect [Mass/Vol] 0.4 mg/dL [facility] Sodium [Moles/volume] in Ser um or PlasmaOrdered By: Jorge Calix on 03-12-2025 Sodium [Moles/Vol] Sodium [Moles/volume ] in Serum or Plasma Low 136-145 [facility] Sodium [Moles/Vol] 134 mmol/L Low 136-145 [facility] Comment on above: Performed By: #### C MP #### [address] Specific gravity Test strip (U) [Rel density]Ordered By: Jorge Calix on 03-12-2025 Specific gravity (U) [Rel density] Specific gravity of Urine by Test strip 1.001-1.030 [facility] Specific gravity (U) [Rel density] 1.012 1.001-1.030 [facility] Troponin I High Sensitivityo n 03-12-2025 Troponin I High Sensitivity 46 High 0-15 [facility] Comment on above: Result Comment: The Troponin units of report have been changed to meet the Chest Pain Accreditation requirement, element EC5.M1l2. Troponin units are changed from pg/ml to ng/L. Also, the decimal is removed and results are in whole numbers. PERFORMED BY: [place] [address] PATHOLOGIST DELICATESSEN CLERK MAY HYDE M.D. Performed By: #### B TICKET MAKER, HS TROP, PT, CBC, BMP #### [address] Troponin I.cardiac [Mass/vol ume] in Serum or Plasma by Detection limit <= 0.01 ng/Ordered By: Jorge Calix on 03-12-2025 Troponin I.cardiac DL <= 0.01 ng/mL [Mass/Vol] Troponin I.cardiac [Mass/volume] in Serum or Plasma by Detection limit <= 0.01 ng/ High [address] [place] [address] Troponin I.cardiac [Mass/vol ume] in Serum or Plasma by Detection limit <= 0.01 ng/mLOrdered By: Jorge Calix on 03-12-2025 Troponin I.cardiac DL <= 0.01 ng/mL [Mass/Vol] 46 ng/L High 015 [facility] Comment on above: The Troponin units o f report have been changed to meet the Chest Pain Accreditation requirement, element EC5.M1l2. Troponin units are changed from pg/ml to ng/L. Also, the decimal is removed and results are in whole numbers. Urea nitrogen [Mass/volume] in Serum or PlasmaOrdered By: Jorge Calix on 03-12-2025 Urea nitrogen [Mass/Vol] Urea nitrogen [Mass/volume] in Serum or Plasma [address] Urea nitrogen [Mass/Vol] 41 mg/dL [address] Comment on above: Performed By: #### C MP #### [facility] [address] Urobilinogen Test strip (U) [Mass/Vol]Ordered By: Jorge Calix on 03-12-2025 Urobilinogen (U) [Mass/Vol] Urobilinogen [Mass/volume] in Urine by Test strip Normal [facility] Urobilinogen (U) [Mass/Vol] Normal mg/dL Normal [facility] WBC Auto (Bld) [#/Vol]Ordere d By: Jorge Calix on 03-12-2025 WBC (Bld) [#/Vol] Leukocytes [#/volume ] in Blood by Automated count 3.8-11.6 [facility] X-ray reportOrdered By: Kirit Langston on 03-12-2025 Study report [facility] Work Phone: XR chest 1V portableon 03-12 XR chest 1V portable [facility] [place] [address] [place] [address] XRay Report Signed Patient: Joe Call MR#: [id number] 0 : 1945 Acct:[id number] Age/Sex: 79 / F ADM Date: 03/12/25 Loc: ER Room: Type: [facility] ER Attending Dr: Copies to: [...] Langston M.D. 03/12/2025 3:34 PM Dictation Location: [place] [address] Transcribed By: [facility] 03/12/25 1534 Dictated By: Vargas Langston MD 03/12/25 1532 Signed By: 03/12/25 1534 Normal [facility] pH Test strip (U)Ordered By: Jorge Calix on 03-12-2025 pH (U) pH of Urine by Test strip 5.0-9.0 [facility] pH of Urine by Test stripOrd ered By: Jorge Calix on 03-12-2025 pH (U) 7.0 [pH] Normal 5.0-9.0 [facility] Comment on above: Order Comment: Name Collection Type:: Other Performed By: #### B TICKET MAKER, HS TROP, PT, CBC, BMP #### [place] [id number] [facility] Cholesterol in LDL Calc [Mas s/Vol]on 03-02-2025 Cholesterol in LDL [Mass/Vol] Cholesterol in LDL [Mass/volume] in Serum or Plasma by calculation [facility] Comment on above: <100 mg/dl [id number] 0-129 mg/dl NEAR OR ABOVE [id number] mg/dl BORDERLINE [id number] mg/dl HIGH>190 mg/dl VERY HIGH Cholesterol in LDL [Mass/Vol] 55.6 mg/dL [facility] Comment on above: <100 mg/dl [id number] 0-129 mg/dl NEAR OR ABOVE [id number] mg/dl BORDERLINE [id number] mg/dl HIGH>190 mg/dl VERY HIGH Cholesterol in VLDL Calc [Ma ss/Vol]on 03-02-2025 Cholesterol in VLDL [Mass/Vol] Cholesterol in VLDL [Mass/volume] in Serum or Plasma by calculation [facility] Cholesterol in VLDL [Mass/Vol] 24.4 mg/dL [facility] Erythrocyte distribution wid th Auto (RBC) [Ratio]on 03-02-2025 Erythrocyte distribution width (RBC) [Ratio] Erythrocyte distribution width [Ratio] by Automated count 11.0-15.0 [facility] Erythrocyte distribution width (RBC) [Ratio] 13.4 % 11.0-15.0 [facility] Estimated glomerular filtrat ion rate (GFR) non- Americanon 03-02-2025 GFR/1.73 sq M.predicted among non-blacks MDRD (S/P/Bld) [Vol rate/Area] Estimated glomerular filtration rate (GFR) non- Low >=60 mL/min/1.73 m 2 [facility] GFR/1.73 sq M.predicted among non-blacks MDRD (S/P/Bld) [Vol rate/Area] 27 mL/min/{1.73_m2} Low >=60 mL/min/1.73 m 2 [facility] Hematocrit Auto (Bld) [Volum e fraction]on 03-02-2025 Hematocrit (Bld) [Volume fraction] Hematocrit [Volume Fraction] of Blood by Automated count 36.0-48.0 [facility] Hematocrit (Bld) [Volume fraction] 38.7 % 36.0-48.0 [facility] Hemoglobin [Mass/volume] in Bloodon 03-02-2025 Hemoglobin (Bld) [Mass/Vol] Hemoglobin [Mass/volume] in Blood 12.0-16.0 [facility] Hemoglobin (Bld) [Mass/Vol] 12.9 g/dL 12.0-16.0 [facility] Iron binding capacity [Mass/ volume] in Serum or Plasmaon 03-02-2025 Iron binding capacity [Mass/Vol] Iron binding capacity [Mass/volume] in Serum or Plasma 250.0-450.0 [facility] Iron binding capacity [Mass/Vol] 278.0 ug/dL 250.0-450.0 [facility] Iron saturation [Mass Fracti on] in Serum or Plasmaon 03-02-2025 Iron saturation [Mass fraction] Iron saturation [Mass Fraction] in Serum or Plasma [facility] Iron saturation [Mass fraction] 22.3 % [facility] Laboratory - Chemistry and C hemistry - challengeon 03-02-2025 Albumin [Mass/Vol] 2.4 g/dL Low 3.4-5.0 [facility] Calcium [Mass/Vol] 8.1 mg/dL Low 8.5-10.1 [facility] Chloride [Moles/Vol] 96 mmol/L Low 98-107 [facility] Cholesterol [Mass/Vol] 136 mg/dL <=200 [facility] Cholesterol in HDL [Mass/Vol] 56 mg/dL 40-60 [facility] Comment on above: > or =60 mg/dl - LOW CARDIOVASCULAR RISK<40 mg/dl - HIGH CARDIOVASCULAR RISK CO2 [Moles/Vol] 31.2 mmol/L 21.0-32.0 [facility] Creatinine [Mass/Vol] 1.83 mg/dL High 0.55-1.02 [facility] Ferritin [Mass/Vol] 114.0 ng/mL 8.0-252.0 [facility] GFR/1.73 sq M.predicted MDRD (S/P/Bld) [Vol rate/Area] 32 mL/min/{1.73_m2} Low >=60 mL/min/1.73 m 2 [facility] Glucose [Mass/Vol] 337 mg/dL High 74-106 [facility] Iron [Mass/Vol] 62.0 ug/dL 50.0-170.0 [facility] Magnesium [Mass/Vol] 1.0 mg/dL Low 1.8-2.4 [facility] Natriuretic peptide B (Bld) [Mass/Vol] 4236.0 pg/mL Critically high <=1800.0 [facility] Comment on above: RESULTS CALLED TO AN BRYANNA ACUNA Potassium [Moles/Vol] 3.6 mmol/L 3.5-5.1 [facility] Sodium [Moles/Vol] 137 mmol/L 136-145 [facility] Triglyceride [Mass/Vol] 122 mg/dL <=150 [facility] Urate [Mass/Vol] 8.1 mg/dL High 2.6-6.0 [facility] Urea nitrogen [Mass/Vol] 53.0 mg/dL High 7.0-18.0 [facility] Urea nitrogen/Creatinine [Mass ratio] 29.0 mg/mg [facility] Bilirubin Ql (U) Negative NEGATIVE [facility] Glucose (U) [Mass/Vol] 250 mg/dL Abnormal NEGATIVE [facility] Ketones Ql (U) Negative NEGATIVE [facility] pH (U) 6.0 [pH] 5.0-9.0 [facility] Specific gravity (U) [Rel density] 1.020 1.005-1.025 [facility] Urobilinogen Qn (U) 0.2 {Meka'U}/dL 0.2-1.0 [facility] Laboratory - Specimen inform ationon 03-02-2025 Appearance (U) CLEAR CLEAR [facility] Color (U) LT. YELLOW YELLOW [facility] Laboratory - Urinalysison Leukocyte esterase Test strip Ql (U) Negative NEGATIVE [facility] Mucus Ql (Urine sed) TRACE Abnormal NONE SEEN [facility] Nitrite Ql (U) Negative NEGATIVE [facility] Protein (U) [Mass/Vol] 186.2 mg/dL High <=11.9 [facility] Protein Ql (U) >=300 mg/dL Abnormal NEG/TRACE [facility] Leukocytes [#/volume] correc gali for nucleated erythrocytes in Blood by Automated counon 03-02-2025 WBC corrected for nucl RBC Auto (Bld) [#/Vol] Leukocytes [#/volume] corrected for nucleated erythrocytes in Blood by Automated coun 4.0-11.0 [facility] WBC corrected for nucl RBC Auto (Bld) [#/Vol] 8.7 10 3/uL 4.0-11.0 [facility] MCH Auto (RBC) [Entitic mass ]on 03-02-2025 MCH (RBC) [Entitic mass] MCH [Entitic mass] by Automated count 26.7-34.0 [facility] MCH (RBC) [Entitic mass] 29.4 pg 26.7-34.0 [facility] MCHC Auto (RBC) [Mass/Vol]on 03-02-2025 MCHC (RBC) [Mass/Vol] MCHC [Mass/volume] by Automated count 29.9-35.2 [facility] MCHC (RBC) [Mass/Vol] 33.3 g/dL 29.9-35.2 [facility] MCV Auto (RBC) [Entitic vol] on 03-02-2025 MCV (RBC) [Entitic vol] MCV [Entitic volume] by Automated count 81.0-99.0 [facility] MCV (RBC) [Entitic vol] 88.2 fL 81.0-99.0 [facility] No Panel Informationon 03-02 25-Hydroxy Vitamin D Total 10.8 ng/mL [facility] Comment on above: <20 ng/mL Vit D defi cient20-<30 ng/mL Vit D [id number] ng/mL Vit D sufficient>100 ng/mL Potential Toxicity Parathyroid Hormone (Intact) 57 pg/mL [facility] Comment on above: Performed at: [facility] [address] [id number] Director: Dimitri Landis PhD, Phone: [phone] Phosphorus Level 4.9 mg/dL High 2.6-4.7 [facility] 57 pg/mL [facility] 10.8 ng/mL [facility] 114.0 ng/mL 8.0-252.0 [facility] 4236.0 pg/mL Critically high <=1800.0 [facility] 1.0 mg/dL Low 1.8-2.4 [facility] 2.4 g/dL Low 3.4-5.0 [facility] 4.9 mg/dL High 2.6-4.7 [facility] 8.1 mg/dL Low 8.5-10.1 [facility] 136 mg/dL <=200 [facility] 29.0 [facility] 62.0 ug/dL 50.0-170.0 [facility] 56 mg/dL 40-60 [facility] 53.0 mg/dL High 7.0-18.0 [facility] 122 mg/dL <=150 [facility] 96 mmol/L Low 98-107 [facility] 31.2 mmol/L 21.0-32.0 [facility] 1.83 mg/dL High 0.55-1.02 [facility] 32 Low >=60 mL/min/1.73 m 2 [facility] 337 mg/dL High 74-106 [facility] 3.6 mmol/L 3.5-5.1 [facility] 137 mmol/L 136-145 [facility] Urine Bacteria SMALL #/HPF Abnormal NONE SEEN [facility] Urine Occult Blood TRACE-I NEGATIVE [facility] Urine Other Casts NONE SEEN #/LPF NONE SEEN [facility] Urine Other Crystals None Seen #/HPF None Seen [facility] Urine Random Creatinine 26.93 mg/dL 20.00-300.0 0 [facility] Urine RBC 2-5 #/HPF Abnormal 0-2 [facility] Urine Squamous Epithelial Cells FEW #/LPF Abnormal NONE/RARE [facility] Urine WBC NONE SEEN #/HPF NONE SEEN [facility] 26.93 mg/dL 20.00-300.0 0 [facility] 186.2 mg/dL High <=11.9 [facility] Office Visiton 03-02-2025 Follow-up visit [id number] Joe Call 1945 F Date Provider Department Center 03/02/2025 [id number] LUNA LOVE [facility] Family History Problem Relation Age of Onset Heart disease Mother Heart attack Father Coronary artery disease Other Diabetes Other Polycystic kidney disease Other Family Status - Relation Status Age at Mother Father Sister Brother Other Level of Service:47074 [place] OFFICE/OUTPATIENT ESTABLISHED MOD MDM 30 MIN Reason for Visit and Comments: 5 week follow up with Labs [Other] Normal [facility] Orders Onlyon 03-02-2025 Orders Only [id number] Joe Call 1945 F Date Provider Department Center 03/02/2025 ARSENIO CASTELLANO Family History Problem Relation Age of Onset [...] Blood by Automated count 9.5-13.5 [facility] Platelet mean volume (Bld) [Entitic vol] 11.7 fL 9.5-13.5 [facility] Platelets Auto (Bld) [#/Vol] on 03-02-2025 Platelets (Bld) [#/Vol] Platelets [#/volume] in Blood by Automated count 150-450 [facility] Platelets (Bld) [#/Vol] 150 10 3/uL 150-450 [facility] RBC Auto (Bld) [#/Vol]on RBC (Bld) [#/Vol] Erythrocytes [#/volu me] in Blood by Automated count 4.20-5.40 [facility] RBC (Bld) [#/Vol] 4.39 10 6/uL 4.20-5.40 [facility] Serum or plasma anion gap de terminationon 03-02-2025 Anion gap [Moles/Vol] Serum or plasma an ion gap determination [facility] Anion gap [Moles/Vol] 13.4 mmol/L Fi [facility] Serum or plasma total choles terol/high density lipoprotein (HDL) cholesterol mass herminia 03-02-2025 Cholesterol.total/Chol esterol in HDL [Mass ratio] Serum or plasma total cholesterol/high density lipoprotein (HDL) cholesterol mass rat [facility] Comment on above: 3.3 - 4.4 LOW RISK4. 4 - 7.1 AVERAGE RISK7.1 - 11.0 MODERATE RISK>11.0 HIGH RISK Cholesterol.total/Chol esterol in HDL [Mass ratio] 2.4 {ratio} [facility] Comment on above: 3.3 - 4.4 LOW RISK4. 4 - 7.1 AVERAGE RISK7.1 - 11.0 MODERATE RISK>11.0 HIGH RISK Urine protein/creatinine rat ioon 03-02-2025 Protein/Creatinine (U) [Ratio] Urine protein/creatinine ratio [facility] Protein/Creatinine (U) [Ratio] 6.91 [facility] Yeast detection in urine sed iment by light microscopyon 03-02-2025 Yeast LM Ql (Urine sed) SEEN Abnormal NONE SEEN [facility] Office Visiton 01-28-2025 Follow-up visit [id number] Joe Call 1945 F Date Provider Department Center 01/28/2025 [id number] LUNA LOVE [facility] Family History Problem Relation Age of Onset Coronary artery disease Other Diabetes Other Polycystic kidney disease Other Family Status - Relation Status Age at Other Level of Service:62332 [place] OFFICE/OUTPATIENT ESTABLISHED MOD MDM 30 MIN Reason for Visit and Comments: Hypertension [633139] Congestive Heart Failure [127] - Discharged yesterday from [facility] for CHF. Discharge papers from [facility] do not have her on a diuretic. Patient believes she's taking furosemide 40mg every other day. Coronary Artery Disease [187] Atrial Fibrillation [80] - Denies lightheadedness/syncope and bleeding on Xarelto. Hyperlipidemia [182] - No lipids since last visit. Edema [[id number]] Shortness of Breath [910383] - Improving. Palpitations [093703] Fall [956462] - Fell a few days ago at home when she slipped on the carpet. Normal [facility] Basophils Auto (Bld) [#/Vol] on 01-27-2025 Basophils (Bld) [#/Vol] Automated basophil count 0.0-0.1 [facility] Basophils/100 WBC Auto (Bld) on 01-27-2025 Basophils/100 WBC (Bld) Automated basophil % 0.2-2.0 [facility] Eosinophils/100 WBC Auto (Bl d)on 01-27-2025 Eosinophils/100 WBC (Bld) Automated eosinophil % 0.9-7.0 [facility] Erythrocyte distribution wid th Auto (RBC) [Ratio]on 01-27-2025 Erythrocyte distribution width (RBC) [Ratio] Erythrocyte distribution width [Ratio] by Automated count 11.0-15.0 [facility] Estimated glomerular filtrat ion rate (GFR) non- Americanon 01-27-2025 GFR/1.73 sq M.predicted among non-blacks MDRD (S/P/Bld) [Vol rate/Area] Estimated glomerular filtration rate (GFR) non- Low >=60 mL/min/1.73 m 2 [facility] Globulin Calc (S) [Mass/Vol] on 01-27-2025 Globulin (S) [Mass/Vol] Serum globulin measurement by calculation (mass/volume) [facility] Hematocrit Auto (Bld) [Volum e fraction]on 01-27-2025 Hematocrit (Bld) [Volume fraction] Hematocrit [Volume Fraction] of Blood by Automated count 36.0-48.0 [facility] Hemoglobin [Mass/volume] in Bloodon 01-27-2025 Hemoglobin (Bld) [Mass/Vol] Hemoglobin [Mass/volume] in Blood 12.0-16.0 [facility] Laboratory - Chemistry and C hemistry - challengeon 01-27-2025 Potassium [Moles/Vol] 3.8 mmol/L 3.5-5.1 [facility] Albumin [Mass/Vol] 2.1 g/dL Low 3.4-5.0 [facility] ALP [Catalytic activity/Vol] 79 U/L 46-116 [facility] ALT [Catalytic activity/Vol] 8 U/L Low 14-59 [facility] AST [Catalytic activity/Vol] 17 U/L 15-37 [facility] Bilirubin [Mass/Vol] 0.4 mg/dL 0.2-1.0 [facility] Calcium [Mass/Vol] 8.3 mg/dL Low 8.5-10.1 [facility] Chloride [Moles/Vol] 105 mmol/L 98-107 [facility] CO2 [Moles/Vol] 36.4 mmol/L High 21.0-32.0 [facility] Creatinine [Mass/Vol] 1.52 mg/dL High 0.55-1.02 [facility] GFR/1.73 sq M.predicted MDRD (S/P/Bld) [Vol rate/Area] 40 mL/min/{1.73_m2} Low >=60 mL/min/1.73 m 2 [facility] Glucose [Mass/Vol] 113 mg/dL High 74-106 [facility] Magnesium [Mass/Vol] 1.3 mg/dL Low 1.8-2.4 [facility] Protein [Mass/Vol] 6.1 g/dL Low 6.4-8.2 [facility] Sodium [Moles/Vol] 144 mmol/L 136-145 [facility] Urea nitrogen [Mass/Vol] 22.0 mg/dL High 7.0-18.0 [facility] Urea nitrogen/Creatinine [Mass ratio] 14.5 mg/mg [facility] Laboratory - Hematology and Cell countson 01-27-2025 Immature granulocytes/100 WBC (Bld) 0.2 % 0.0-0.5 [facility] Leukocytes [#/volume] correc gali for nucleated erythrocytes in Blood by Automated counon 01-27-2025 WBC corrected for nucl RBC Auto (Bld) [#/Vol] Leukocytes [#/volume] corrected for nucleated erythrocytes in Blood by Automated coun 4.0-11.0 [facility] Lymphocytes Auto (Bld) [#/Vo l]on 01-27-2025 Lymphocytes (Bld) [#/Vol] Lymphocytes [#/volume] in Blood by Automated count 1.2-3.8 [facility] Lymphocytes/100 WBC Auto (Bl d)on 01-27-2025 Lymphocytes/100 WBC (Bld) Lymphocytes/100 leukocytes in Blood by Automated count 20.5-60.0 [facility] MCH Auto (RBC) [Entitic mass ]on 01-27-2025 MCH (RBC) [Entitic mass] MCH [Entitic mass] by Automated count 26.7-34.0 [facility] MCHC Auto (RBC) [Mass/Vol]on 01-27-2025 MCHC (RBC) [Mass/Vol] MCHC [Mass/volume] by Automated count 29.9-35.2 [facility] MCV Auto (RBC) [Entitic vol] on 01-27-2025 MCV (RBC) [Entitic vol] MCV [Entitic volume] by Automated count 81.0-99.0 [facility] Monocytes Auto (Bld) [#/Vol] on 01-27-2025 Monocytes (Bld) [#/Vol] Automated blood monocyte count High 0.3-0.8 [facility] Monocytes/100 WBC Auto (Bld) on 01-27-2025 Monocytes/100 WBC (Bld) Automated monocyte % 1.7-12.0 [facility] Neutrophils Auto (Bld) [#/Vo l]on 01-27-2025 Neutrophils (Bld) [#/Vol] Neutrophils [#/volume] in Blood by Automated count 1.4-6.5 [facility] Neutrophils/100 WBC Auto (Bl d)on 01-27-2025 Neutrophils/100 WBC (Bld) Automated neutrophil % 43.0-75.0 [facility] No Panel Informationon 01-27 3.8 mmol/L 3.5-5.1 [facility] Eosinophils # (Auto) 0.2 10 3/uL 0.0-0.7 [facility] Immature Granulocyte # (Auto) 0.02 10 3/uL 0.00-0.03 [facility] 1.3 mg/dL Low 1.8-2.4 [facility] 0.2 10 3/uL 0.0-0.7 [facility] 2.1 g/dL Low 3.4-5.0 [facility] 79 U/L 46-116 [facility] 8 U/L Low 14-59 [facility] 17 U/L 15-37 [facility] 0.02 10 3/uL 0.00-0.03 [facility] 14.5 [facility] 0.2 % 0.0-0.5 [facility] 22.0 mg/dL High 7.0-18.0 [facility] 8.3 mg/dL Low 8.5-10.1 [facility] 105 mmol/L 98-107 [facility] 36.4 mmol/L High 21.0-32.0 [facility] 1.52 mg/dL High 0.55-1.02 [facility] 40 Low >=60 mL/min/1.73 m 2 [facility] 113 mg/dL High 74-106 [facility] 144 mmol/L 136-145 [facility] 0.4 mg/dL 0.2-1.0 [facility] 6.1 g/dL Low 6.4-8.2 [facility] Platelet mean volume Auto (B ld) [Entitic vol]on 01-27-2025 Platelet mean volume (Bld) [Entitic vol] Platelet mean volume [Entitic volume] in Blood by Automated count 9.5-13.5 [facility] Platelets Auto (Bld) [#/Vol] on 01-27-2025 Platelets (Bld) [#/Vol] Platelets [#/volume] in Blood by Automated count 150-450 [facility] RBC Auto (Bld) [#/Vol]on RBC (Bld) [#/Vol] Erythrocytes [#/volu me] in Blood by Automated count 4.20-5.40 [facility] Serum or plasma albumin/glob ulin mass ratioon 01-27-2025 Albumin/Globulin [Mass ratio] Serum or plasma albumin/globulin mass ratio [facility] Serum or plasma anion gap de terminationon 01-27-2025 Anion gap [Moles/Vol] Serum or plasma an ion gap determination [facility] Basophils Auto (Bld) [#/Vol] on 01-26-2025 Basophils (Bld) [#/Vol] Automated basophil count 0.0-0.1 [facility] Basophils/100 WBC Auto (Bld) on 01-26-2025 Basophils/100 WBC (Bld) Automated basophil % 0.2-2.0 [facility] Eosinophils/100 WBC Auto (Bl d)on 01-26-2025 Eosinophils/100 WBC (Bld) Automated eosinophil % 0.9-7.0 [facility] Erythrocyte distribution wid th Auto (RBC) [Ratio]on 01-26-2025 Erythrocyte distribution width (RBC) [Ratio] Erythrocyte distribution width [Ratio] by Automated count 11.0-15.0 [facility] Estimated glomerular filtrat ion rate (GFR) non- Americanon 01-26-2025 GFR/1.73 sq M.predicted among non-blacks MDRD (S/P/Bld) [Vol rate/Area] Estimated glomerular filtration rate (GFR) non- Low >=60 mL/min/1.73 m 2 [facility] Globulin Calc (S) [Mass/Vol] on 01-26-2025 Globulin (S) [Mass/Vol] Serum globulin measurement by calculation (mass/volume) [facility] Hematocrit Auto (Bld) [Volum e fraction]on 01-26-2025 Hematocrit (Bld) [Volume fraction] Hematocrit [Volume Fraction] of Blood by Automated count 36.0-48.0 [facility] Hemoglobin [Mass/volume] in Bloodon 01-26-2025 Hemoglobin (Bld) [Mass/Vol] Hemoglobin [Mass/volume] in Blood 12.0-16.0 [facility] Laboratory - Chemistry and C hemistry - challengeon 01-26-2025 Albumin [Mass/Vol] 1.9 g/dL Low 3.4-5.0 [facility] ALP [Catalytic activity/Vol] 77 U/L 46-116 [facility] ALT [Catalytic activity/Vol] 11 U/L Low 14-59 [facility] AST [Catalytic activity/Vol] 19 U/L 15-37 [facility] Bilirubin [Mass/Vol] 0.4 mg/dL 0.2-1.0 [facility] Calcium [Mass/Vol] 8.0 mg/dL Low 8.5-10.1 [facility] Chloride [Moles/Vol] 105 mmol/L 98-107 [facility] CO2 [Moles/Vol] 35.1 mmol/L High 21.0-32.0 [facility] Creatinine [Mass/Vol] 1.36 mg/dL High 0.55-1.02 [facility] GFR/1.73 sq M.predicted MDRD (S/P/Bld) [Vol rate/Area] 46 mL/min/{1.73_m2} Low >=60 mL/min/1.73 m 2 [facility] Glucose [Mass/Vol] 133 mg/dL High 74-106 [facility] Magnesium [Mass/Vol] 1.3 mg/dL Low 1.8-2.4 [facility] Potassium [Moles/Vol] 2.9 mmol/L Critically low 3.5-5.1 [facility] Comment on above: RESULTS CALLED TO JOSE MARTIN DODGE RN @BY Alla Venegas at 0635 Protein [Mass/Vol] 5.8 g/dL Low 6.4-8.2 [facility] Sodium [Moles/Vol] 145 mmol/L 136-145 [facility] Urea nitrogen [Mass/Vol] 21.0 mg/dL High 7.0-18.0 [facility] Urea nitrogen/Creatinine [Mass ratio] 15.4 mg/mg [facility] Laboratory - Hematology and Cell countson 01-26-2025 Immature granulocytes/100 WBC (Bld) 0.1 % 0.0-0.5 [facility] Leukocytes [#/volume] correc gali for nucleated erythrocytes in Blood by Automated counon 01-26-2025 WBC corrected for nucl RBC Auto (Bld) [#/Vol] Leukocytes [#/volume] corrected for nucleated erythrocytes in Blood by Automated coun 4.0-11.0 [facility] Lymphocytes Auto (Bld) [#/Vo l]on 01-26-2025 Lymphocytes (Bld) [#/Vol] Lymphocytes [#/volume] in Blood by Automated count 1.2-3.8 [facility] Lymphocytes/100 WBC Auto (Bl d)on 01-26-2025 Lymphocytes/100 WBC (Bld) Lymphocytes/100 leukocytes in Blood by Automated count Low 20.5-60.0 [facility] MCH Auto (RBC) [Entitic mass ]on 01-26-2025 MCH (RBC) [Entitic mass] MCH [Entitic mass] by Automated count 26.7-34.0 [facility] MCHC Auto (RBC) [Mass/Vol]on 01-26-2025 MCHC (RBC) [Mass/Vol] MCHC [Mass/volume] by Automated count 29.9-35.2 [facility] MCV Auto (RBC) [Entitic vol] on 01-26-2025 MCV (RBC) [Entitic vol] MCV [Entitic volume] by Automated count 81.0-99.0 [facility] Monocytes Auto (Bld) [#/Vol] on 01-26-2025 Monocytes (Bld) [#/Vol] Automated blood monocyte count 0.3-0.8 [facility] Monocytes/100 WBC Auto (Bld) on 01-26-2025 Monocytes/100 WBC (Bld) Automated monocyte % 1.7-12.0 [facility] Neutrophils Auto (Bld) [#/Vo l]on 01-26-2025 Neutrophils (Bld) [#/Vol] Neutrophils [#/volume] in Blood by Automated count 1.4-6.5 [facility] Neutrophils/100 WBC Auto (Bl d)on 01-26-2025 Neutrophils/100 WBC (Bld) Automated neutrophil % 43.0-75.0 [facility] No Panel Informationon 01-26 Eosinophils # (Auto) 0.1 10 3/uL 0.0-0.7 [facility] Immature Granulocyte # (Auto) 0.01 10 3/uL 0.00-0.03 [facility] Troponin I High Sensitivity 30.9 pg/mL 4.0-51.3 [facility] Comment on above: CUT-OFF POINTS [...] AND CLINICAL INFORMATION. 1.3 mg/dL Low 1.8-2.4 [facility] 30.9 pg/mL 4.0-51.3 [facility] 0.1 10 3/uL 0.0-0.7 [facility] 1.9 g/dL Low 3.4-5.0 [facility] 77 U/L 46-116 [facility] 11 U/L Low 14-59 [facility] 19 U/L 15-37 [facility] 0.01 10 3/uL 0.00-0.03 [facility] 15.4 [facility] 0.1 % 0.0-0.5 [facility] 21.0 mg/dL High 7.0-18.0 [facility] 8.0 mg/dL Low 8.5-10.1 [facility] 105 mmol/L 98-107 [facility] 35.1 mmol/L High 21.0-32.0 [facility] 1.36 mg/dL High 0.55-1.02 [facility] 46 Low >=60 mL/min/1.73 m 2 [facility] 133 mg/dL High 74-106 [facility] 2.9 mmol/L Critically low 3.5-5.1 [facility] 145 mmol/L 136-145 [facility] 0.4 mg/dL 0.2-1.0 [facility] 5.8 g/dL Low 6.4-8.2 [facility] Platelet mean volume Auto (B ld) [Entitic vol]on 01-26-2025 Platelet mean volume (Bld) [Entitic vol] Platelet mean volume [Entitic volume] in Blood by Automated count 9.5-13.5 [facility] Platelets Auto (Bld) [#/Vol] on 01-26-2025 Platelets (Bld) [#/Vol] Platelets [#/volume] in Blood by Automated count 150-450 [facility] RBC Auto (Bld) [#/Vol]on RBC (Bld) [#/Vol] Erythrocytes [#/volu me] in Blood by Automated count Low 4.20-5.40 [facility] Serum or plasma albumin/glob ulin mass ratioon 01-26-2025 Albumin/Globulin [Mass ratio] Serum or plasma albumin/globulin mass ratio [facility] Serum or plasma anion gap de terminationon 01-26-2025 Anion gap [Moles/Vol] Serum or plasma an ion gap determination [facility] Basophils Auto (Bld) [#/Vol] on 01-25-2025 Basophils (Bld) [#/Vol] Automated basophil count 0.0-0.1 [facility] Basophils/100 WBC Auto (Bld) on 01-25-2025 Basophils/100 WBC (Bld) Automated basophil % 0.2-2.0 [facility] Eosinophils/100 WBC Auto (Bl d)on 01-25-2025 Eosinophils/100 WBC (Bld) Automated eosinophil % 0.9-7.0 [facility] Erythrocyte distribution wid th Auto (RBC) [Ratio]on 01-25-2025 Erythrocyte distribution width (RBC) [Ratio] Erythrocyte distribution width [Ratio] by Automated count 11.0-15.0 [facility] Estimated glomerular filtrat ion rate (GFR) non- Americanon 01-25-2025 GFR/1.73 sq M.predicted among non-blacks MDRD (S/P/Bld) [Vol rate/Area] Estimated glomerular filtration rate (GFR) non- Low >=60 mL/min/1.73 m 2 [facility] Hematocrit Auto (Bld) [Volum e fraction]on 01-25-2025 Hematocrit (Bld) [Volume fraction] Hematocrit [Volume Fraction] of Blood by Automated count 36.0-48.0 [facility] Hemoglobin [Mass/volume] in Bloodon 01-25-2025 Hemoglobin (Bld) [Mass/Vol] Hemoglobin [Mass/volume] in Blood 12.0-16.0 [facility] Laboratory - Chemistry and C hemistry - challengeon 01-25-2025 Potassium [Moles/Vol] 3.1 mmol/L Low 3.5-5.1 [facility] Free T4 [Mass/Vol] 1.65 ng/dL High 0.76-1.46 [facility] Magnesium [Mass/Vol] 1.2 mg/dL Low 1.8-2.4 [facility] TSH Qn 6.107 m[IU]/L High 0.358-3.740 [facility] Calcium [Mass/Vol] 8.1 mg/dL Low 8.5-10.1 [facility] Chloride [Moles/Vol] 104 mmol/L 98-107 [facility] CO2 [Moles/Vol] 34.6 mmol/L High 21.0-32.0 [facility] Creatinine [Mass/Vol] 1.49 mg/dL High 0.55-1.02 [facility] GFR/1.73 sq M.predicted MDRD (S/P/Bld) [Vol rate/Area] 41 mL/min/{1.73_m2} Low >=60 mL/min/1.73 m 2 [facility] Glucose [Mass/Vol] 121 mg/dL High 74-106 [facility] Natriuretic peptide B (Bld) [Mass/Vol] 7089.0 pg/mL Critically high <=1800.0 [facility] Comment on above: RESULTS CALLED TO RENETTA Hogan RN @BY Andrea Long [place] at 0458 Sodium [Moles/Vol] 144 mmol/L 136-145 [facility] Urea nitrogen [Mass/Vol] 22.0 mg/dL High 7.0-18.0 [facility] Urea nitrogen/Creatinine [Mass ratio] 14.8 mg/mg [facility] Laboratory - Hematology and Cell countson 01-25-2025 Immature granulocytes/100 WBC (Bld) 0.4 % 0.0-0.5 [facility] Leukocytes [#/volume] correc gali for nucleated erythrocytes in Blood by Automated counon 01-25-2025 WBC corrected for nucl RBC Auto (Bld) [#/Vol] Leukocytes [#/volume] corrected for nucleated erythrocytes in Blood by Automated coun 4.0-11.0 [facility] Lymphocytes Auto (Bld) [#/Vo l]on 01-25-2025 Lymphocytes (Bld) [#/Vol] Lymphocytes [#/volume] in Blood by Automated count 1.2-3.8 [facility] Lymphocytes/100 WBC Auto (Bl d)on 01-25-2025 Lymphocytes/100 WBC (Bld) Lymphocytes/100 leukocytes in Blood by Automated count Low 20.5-60.0 [facility] MCH Auto (RBC) [Entitic mass ]on 01-25-2025 MCH (RBC) [Entitic mass] MCH [Entitic mass] by Automated count 26.7-34.0 [facility] MCHC Auto (RBC) [Mass/Vol]on 01-25-2025 MCHC (RBC) [Mass/Vol] MCHC [Mass/volume] by Automated count 29.9-35.2 [facility] MCV Auto (RBC) [Entitic vol] on 01-25-2025 MCV (RBC) [Entitic vol] MCV [Entitic volume] by Automated count 81.0-99.0 [facility] Monocytes Auto (Bld) [#/Vol] on 01-25-2025 Monocytes (Bld) [#/Vol] Automated blood monocyte count 0.3-0.8 [facility] Monocytes/100 WBC Auto (Bld) on 01-25-2025 Monocytes/100 WBC (Bld) Automated monocyte % 1.7-12.0 [facility] Neutrophils Auto (Bld) [#/Vo l]on 01-25-2025 Neutrophils (Bld) [#/Vol] Neutrophils [#/volume] in Blood by Automated count 1.4-6.5 [facility] Neutrophils/100 WBC Auto (Bl d)on 01-25-2025 Neutrophils/100 WBC (Bld) Automated neutrophil % 43.0-75.0 [facility] No Panel Informationon 01-25 3.1 mmol/L Low 3.5-5.1 [facility] Clostridium difficile (PCR)(LAB) Negative [facility] Negative [facility] Troponin I High Sensitivity 28.4 pg/mL 4.0-51.3 [facility] Comment on above: CUT-OFF POINTS [...] AND CLINICAL INFORMATION. 1.65 ng/dL High 0.76-1.46 [facility] 6.107 u[iU]/mL High 0.358-3.740 [facility] 28.4 pg/mL 4.0-51.3 [facility] 1.2 mg/dL Low 1.8-2.4 [facility] Eosinophils # (Auto) 0.1 10 3/uL 0.0-0.7 [facility] Immature Granulocyte # (Auto) 0.03 10 3/uL 0.00-0.03 [facility] 7089.0 pg/mL Critically high <=1800.0 [facility] 14.8 [facility] 22.0 mg/dL High 7.0-18.0 [facility] 0.1 10 3/uL 0.0-0.7 [facility] 8.1 mg/dL Low 8.5-10.1 [facility] 104 mmol/L 98-107 [facility] 34.6 mmol/L High 21.0-32.0 [facility] 1.49 mg/dL High 0.55-1.02 [facility] 0.03 10 3/uL 0.00-0.03 [facility] 41 Low >=60 mL/min/1.73 m 2 [facility] 0.4 % 0.0-0.5 [facility] 121 mg/dL High 74-106 [facility] 144 mmol/L 136-145 [facility] Platelet mean volume Auto (B ld) [Entitic vol]on 01-25-2025 Platelet mean volume (Bld) [Entitic vol] Platelet mean volume [Entitic volume] in Blood by Automated count 9.5-13.5 [facility] Platelets Auto (Bld) [#/Vol] on 01-25-2025 Platelets (Bld) [#/Vol] Platelets [#/volume] in Blood by Automated count 150-450 [facility] RBC Auto (Bld) [#/Vol]on RBC (Bld) [#/Vol] Erythrocytes [#/volu me] in Blood by Automated count Low 4.20-5.40 [facility] Serum or plasma anion gap de terminationon 01-25-2025 Anion gap [Moles/Vol] Serum or plasma an ion gap determination [facility] Laboratory - Chemistry and C hemistry - challengeon 01-21-2025 Bilirubin Ql (U) ++ [facility] Glucose (U) [Mass/Vol] + [facility] Ketones Ql (U) Negative [facility] pH (U) 6.0 [pH] [facility] Specific gravity (U) [Rel density] 1.010 [facility] Urobilinogen (U) [Mass/Vol] 0.2 mg/dL [facility] Laboratory - Specimen inform ationon 01-21-2025 Appearance (U) cloudy [facility] Color (U) darkyellow [facility] Laboratory - Urinalysison Leukocyte esterase Test strip Ql (U) Negative [facility] Nitrite Ql (U) Negative [facility] Protein Ql (U) ++++ [facility] No Panel Informationon 01-21 Urine Occult Blood 5-10 [facility] darkyellow [facility] cloudy [facility] 1.010 [facility] 6.0 [facility] Negative [facility] ++++ [facility] + [facility] 0.2 [facility] ++ [facility] 5-10 [facility] Basophils Auto (Bld) [#/Vol] on 12-04-2024 Basophils (Bld) [#/Vol] Automated basophil count 0.0-0.1 [facility] Basophils/100 WBC Auto (Bld) on 12-04-2024 Basophils/100 WBC (Bld) Automated basophil % 0.2-2.0 [facility] Eosinophils/100 WBC Auto (Bl d)on 12-04-2024 Eosinophils/100 WBC (Bld) Automated eosinophil % 0.9-7.0 [facility] Erythrocyte distribution wid th Auto (RBC) [Ratio]on 12-04-2024 Erythrocyte distribution width (RBC) [Ratio] Erythrocyte distribution width [Ratio] by Automated count 11.0-15.0 [facility] Estimated glomerular filtrat ion rate (GFR) non- Americanon 12-04-2024 GFR/1.73 sq M.predicted among non-blacks MDRD (S/P/Bld) [Vol rate/Area] Estimated glomerular filtration rate (GFR) non- Low >=60 mL/min/1.73 m 2 [facility] Globulin Calc (S) [Mass/Vol] on 12-04-2024 Globulin (S) [Mass/Vol] Serum globulin measurement by calculation (mass/volume) [facility] Hematocrit Auto (Bld) [Volum e fraction]on 12-04-2024 Hematocrit (Bld) [Volume fraction] Hematocrit [Volume Fraction] of Blood by Automated count 36.0-48.0 [facility] Hemoglobin [Mass/volume] in Bloodon 12-04-2024 Hemoglobin (Bld) [Mass/Vol] Hemoglobin [Mass/volume] in Blood Low 12.0-16.0 [facility] INR in Platelet poor plasma by Coagulation assayon 12-04-2024 INR Coag (PPP) [Relative time] INR in Platelet poor plasma by Coagulation assay [facility] Comment on above: DESIRED INR:2.0-3.0 CONDITIONS NOT LISTED BELOW2.5-3.5 FOR PROSTHETIC HEART VALVE REPLACEMENT2.5-3.5 RECURRENT THROMBOSIS Laboratory - Chemistry and C hemistry - challengeon 12-04-2024 Albumin [Mass/Vol] 2.7 g/dL Low 3.4-5.0 [facility] ALP [Catalytic activity/Vol] 111 U/L 46-116 [facility] ALT [Catalytic activity/Vol] 19 U/L 14-59 [facility] AST [Catalytic activity/Vol] 16 U/L 15-37 [facility] Bilirubin [Mass/Vol] 0.6 mg/dL 0.2-1.0 [facility] Calcium [Mass/Vol] 8.7 mg/dL 8.5-10.1 [facility] Chloride [Moles/Vol] 101 mmol/L 98-107 [facility] CO2 [Moles/Vol] 29.9 mmol/L 21.0-32.0 [facility] Creatinine [Mass/Vol] 1.24 mg/dL High 0.55-1.02 [facility] GFR/1.73 sq M.predicted MDRD (S/P/Bld) [Vol rate/Area] 51 mL/min/{1.73_m2} Low >=60 mL/min/1.73 m 2 [facility] Glucose [Mass/Vol] 310 mg/dL High 74-106 [facility] Natriuretic peptide B (Bld) [Mass/Vol] 3884.0 pg/mL Critically high <=1800.0 [facility] Comment on above: RESULTS CALLED TO AMILCAR RANGEL RN Potassium [Moles/Vol] 4.3 mmol/L 3.5-5.1 [facility] Protein [Mass/Vol] 7.0 g/dL 6.4-8.2 [facility] Sodium [Moles/Vol] 138 mmol/L 136-145 [facility] Urea nitrogen [Mass/Vol] 28.0 mg/dL High 7.0-18.0 [facility] Urea nitrogen/Creatinine [Mass ratio] 22.6 mg/mg [facility] Laboratory - Hematology and Cell countson 12-04-2024 Immature granulocytes/100 WBC (Bld) 0.2 % 0.0-0.5 [facility] Leukocytes [#/volume] correc gali for nucleated erythrocytes in Blood by Automated counon 12-04-2024 WBC corrected for nucl RBC Auto (Bld) [#/Vol] Leukocytes [#/volume] corrected for nucleated erythrocytes in Blood by Automated coun 4.0-11.0 [facility] Lymphocytes Auto (Bld) [#/Vo l]on 12-04-2024 Lymphocytes (Bld) [#/Vol] Lymphocytes [#/volume] in Blood by Automated count 1.2-3.8 [facility] Lymphocytes/100 WBC Auto (Bl d)on 12-04-2024 Lymphocytes/100 WBC (Bld) Lymphocytes/100 leukocytes in Blood by Automated count Low 20.5-60.0 [facility] MCH Auto (RBC) [Entitic mass ]on 12-04-2024 MCH (RBC) [Entitic mass] MCH [Entitic mass] by Automated count 26.7-34.0 [facility] MCHC Auto (RBC) [Mass/Vol]on 12-04-2024 MCHC (RBC) [Mass/Vol] MCHC [Mass/volume] by Automated count 29.9-35.2 [facility] MCV Auto (RBC) [Entitic vol] on 12-04-2024 MCV (RBC) [Entitic vol] MCV [Entitic volume] by Automated count 81.0-99.0 [facility] Monocytes Auto (Bld) [#/Vol] on 12-04-2024 Monocytes (Bld) [#/Vol] Automated blood monocyte count 0.3-0.8 [facility] Monocytes/100 WBC Auto (Bld) on 12-04-2024 Monocytes/100 WBC (Bld) Automated monocyte % 1.7-12.0 [facility] Neutrophils Auto (Bld) [#/Vo l]on 12-04-2024 Neutrophils (Bld) [#/Vol] Neutrophils [#/volume] in Blood by Automated count 1.4-6.5 [facility] Neutrophils/100 WBC Auto (Bl d)on 12-04-2024 Neutrophils/100 WBC (Bld) Automated neutrophil % 43.0-75.0 [facility] No Panel Informationon 12-04 Eosinophils # (Auto) 0.1 10 3/uL 0.0-0.7 [facility] Immature Granulocyte # (Auto) 0.02 10 3/uL 0.00-0.03 [facility] Troponin I High Sensitivity 19.6 pg/mL 4.0-51.3 [facility] Comment on above: CUT-OFF POINTS [...] Blood by Automated count 9.5-13.5 [facility] Platelets Auto (Bld) [#/Vol] on 12-04-2024 Platelets (Bld) [#/Vol] Platelets [#/volume] in Blood by Automated count 150-450 [facility] Prothrombin time (PT)on 11-13 PT Coag (PPP) [Time] Prothrombin time (PT) High 9.0- 11.6 [facility] RBC Auto (Bld) [#/Vol]on RBC (Bld) [#/Vol] Erythrocytes [#/volu me] in Blood by Automated count Low 4.20-5.40 [facility] Serum or plasma albumin/glob ulin mass ratioon 12-04-2024 Albumin/Globulin [Mass ratio] Serum or plasma albumin/globulin mass ratio [facility] Serum or plasma anion gap de terminationon 12-04-2024 Anion gap [Moles/Vol] Serum or plasma an ion gap determination [facility] Office Visiton 12-02-2024 Follow-up visit [id number] Joe Call 1945 F Date Provider Department Center 12/02/2024 [id number] LUNA Family History Problem Relation Age of Onset Coronary artery disease Other Diabetes Other Polycystic kidney disease Other Family Status - Relation Status Age at Other Level of Service:70690 [place] OFFICE/OUTPATIENT ESTABLISHED MOD MDM 30 MIN Reason for Visit and Comments: Atrial Fibrillation [80] Congestive Heart Failure [127] - Had BMP 3 weeks ago. Taking lasix PRN. Hypertension [534261] Bradycardia [135447] Normal [facility] 36on 11-18-2024 36 Regarding lab [...] FRANCHESCA PERAZA PA-C Where: [facility] [address] [address] 2024 11:20 AM EST With: FRANCHESCA PERAZA PA-C Where: [facility] [address] [address]- Medications What How Much When Why Instructions [...] choosing us for your care. Normal [facility] Estimated glomerular filtrat ion rate (GFR) non- Americanon 11-10-2024 GFR/1.73 sq M.predicted among non-blacks MDRD (S/P/Bld) [Vol rate/Area] Estimated glomerular filtration rate (GFR) non- Low >=60 mL/min/1.73 m 2 [facility] Laboratory - Chemistry and C hemistry - challengeon 11-10-2024 Albumin [Mass/Vol] 3.0 g/dL Low 3.4-5.0 [facility] Calcium [Mass/Vol] 8.5 mg/dL 8.5-10.1 [facility] Chloride [Moles/Vol] 99 mmol/L 98-107 [facility] CO2 [Moles/Vol] 26.2 mmol/L 21.0-32.0 [facility] Creatinine [Mass/Vol] 2.00 mg/dL High 0.55-1.02 [facility] GFR/1.73 sq M.predicted MDRD (S/P/Bld) [Vol rate/Area] 29 mL/min/{1.73_m2} Low >=60 mL/min/1.73 m 2 [facility] Glucose [Mass/Vol] 424 mg/dL High 74-106 [facility] Potassium [Moles/Vol] 4.5 mmol/L 3.5-5.1 [facility] Sodium [Moles/Vol] 136 mmol/L 136-145 [facility] Urea nitrogen [Mass/Vol] 58.0 mg/dL High 7.0-18.0 [facility] Urea nitrogen/Creatinine [Mass ratio] 29.0 mg/mg [facility] No Panel Informationon 11-10 Phosphorus Level 3.6 mg/dL 2.6-4.7 [facility] Serum or plasma anion gap de terminationon 11-10-2024 Anion gap [Moles/Vol] Serum or plasma an ion gap determination [facility] Urology Office/Clinic Noteon 11-04-2024 Urology Office/Clinic Note Urology Office/Clinic Note Chief Complaint Hospital follow up HPI Staff Pt. did see Dr. Gallardo about 20 years ago Admitted [facility] 10/16 after going to ER for weakness/SOB [...] note of the bladder scan anywhere on [facility] system or output volume once peacock placed). /pt state she was NOT having trouble urinating. She was bedridden due to the pacer and the staff was using a PureWick, but they think she was voiding too much for the PureWick to handle/starting to get skin breakdown so they think that is why the peacock was placed. Paecock placed and remained at hospital dc, no void trial attempted. Dc'd 10/20. Urine cx 10/22 neg. Has been having a lot of pain and discomfort from the peacock. Not tolerating it well. Follows w nephrology for CKD. Senior Geologist 10/25/24 1.31 compared to 3.06 on 10/20/24 [...] E&M of New Patient High 60-74 Min 51555 2. CKD (chronic kidney disease) (N18.9: Chronic kidney disease, unspecified) Follows w Dr Rapp Senior Geologist 1.31 on day of dc (10/25/24) Most recent labs 11/03/24 - BUN 34 Senior Geologist 1.86 GFR 26 Pretty variable all year. (Results scanned into documents) Will repeat in 1 week after peacock removal. Sees Dr Rapp either 11/10 or 11/11. Ordered: E&M of New Patient High 60-74 Min 86751 Renal Function Panel 3. Stress incontinence (N39.3: Stress incontinence (female) (male)) At baseline. Typically when stands from seated position or coughing. 2-4 pads per day. Reassess baseline sx at f/u in 4-6 wks. Ordered: E&M of New Patient High 60-74 Min 00450 Total time spent reviewing previous notes/results/external documents, preparing the chart, conducting the encounter with the patient and family, ordering tests/medications, and documenting the encounter was 60 minutes. Follow-up With When Contact Information SYDNIE HASSAN Within 6 weeks [address] [place] [address] Business (1) Additional Instructions: Patient [...] acetaminophen-oxycodone 3 (more content not included)... Normal [facility] Comment on above: Result Comment: Elec tronically Signed By: FRANCHESCA PERAZA PA-C\.valorie\Date and Time Signed: 11/04/24 11:13 EST Estimated glomerular filtrat ion rate (GFR) non- Americanon 11-03-2024 GFR/1.73 sq M.predicted among non-blacks MDRD (S/P/Bld) [Vol rate/Area] Estimated glomerular filtration rate (GFR) non- Low >=60 mL/min/1.73 m 2 [facility] Laboratory - Chemistry and C hemistry - challengeon 11-03-2024 Calcium [Mass/Vol] 8.8 mg/dL 8.5-10.1 [facility] Chloride [Moles/Vol] 99 mmol/L 98-107 [facility] CO2 [Moles/Vol] 23.1 mmol/L 21.0-32.0 [facility] Creatinine [Mass/Vol] 1.86 mg/dL High 0.55-1.02 [facility] GFR/1.73 sq M.predicted MDRD (S/P/Bld) [Vol rate/Area] 32 mL/min/{1.73_m2} Low >=60 mL/min/1.73 m 2 [facility] Glucose [Mass/Vol] 367 mg/dL High 74-106 [facility] Potassium [Moles/Vol] 4.7 mmol/L 3.5-5.1 [facility] Sodium [Moles/Vol] 134 mmol/L Low 136-145 [facility] Urea nitrogen [Mass/Vol] 34.0 mg/dL High 7.0-18.0 [facility] Urea nitrogen/Creatinine [Mass ratio] 18.3 mg/mg [facility] Serum or plasma anion gap de terminationon 11-03-2024 Anion gap [Moles/Vol] Serum or plasma an ion gap determination [facility] Office Visiton 10-31-2024 Follow-up visit [id number] Joe Call 1945 F Date Provider Department Center 10/31/2024 [id number] LOVE [facility] Family History Problem Relation Age of Onset Coronary artery disease Other Diabetes Other Polycystic kidney disease Other Family Status - Relation Status Age at Other Level of Service:00695 [place] OFFICE/OUTPATIENT ESTABLISHED MOD MDM 30 MIN Normal [facility] B-Type Natriuretic Peptideon 10-25-2024 Natriuretic peptide B (Bld) [Mass/Vol] 455.0 pg/mL High 5-100 [facility] Comment on above: Result Comment: PERF ORMED BY: [place] [address] PATHOLOGIST DELICATESSEN CLERK MAY HYDE M.D. Performed By: #### C MP #### [address] Basic Metabolic Panelon 10-12 Anion gap [Moles/Vol] 13.0 mmol/L Normal 6.0-15.0 [facility] Comment on above: Performed By: #### C MP #### [address] Calcium [Mass/Vol] 8.6 mg/dL Normal 8.6-10.3 [facility] Comment on above: Performed By: #### C MP #### [place] [address] [place] Chloride [Moles/Vol] 101 mmol/L Normal 98-107 [facility] Comment on above: Performed By: #### C MP #### [address] CO2 [Moles/Vol] 23.8 mmol/L Normal 21.0-31.0 [facility] Comment on above: Performed By: #### C MP #### [address] Creatinine [Mass/Vol] 1.31 mg/dL High 0.60-1.20 [facility] Comment on above: Performed By: #### C MP #### [address] Creatinine Clr Calc Pharmacy 46.58 Normal [facility] [facility] Comment on above: Result Comment: PERF ORMED BY: [place] [address] PATHOLOGIST DELICATESSEN CLERK MAY HYDE M.D. Performed By: #### C MP #### [address] Estimated GFR 41.704 mL/Min Normal [facility] Comment on above: Performed By: #### C MP #### [address] Glucose [Mass/Vol] 232 mg/dL High 70-100 [facility] Comment on above: Result Comment: [place] Glucose Reference Range is dependent on time and content of last meal. Glucose of more than 200 mg/dL in a nonstressed, ambulatory subject supports the diagnosis of Diabetes Mellitus. ADA recommended reference range Performed By: #### C MP #### [address] Potassium [Moles/Vol] 4.8 mmol/L Normal 3.5-5.1 [facility] Comment on above: Performed By: #### C MP #### [address] Sodium [Moles/Vol] 133 mmol/L Low 136-145 [facility] Comment on above: Performed By: #### C MP #### [address] Urea nitrogen [Mass/Vol] 39 mg/dL High 7-25 [facility] Comment on above: Performed By: #### C MP #### [place] [address] [place] Basophils Auto (Bld) [#/Vol] Ordered By: Daniele Jane on 10-25-2024 Basophils (Bld) [#/Vol] Automated basophil count 0.0-0.2 [facility] Basophils/100 WBC Auto (Bld) Ordered By: Daniele Jane on 10-25-2024 Basophils/100 WBC (Bld) Automated basophil % . [facility] COVID CepheidOrdered By: Trino vanita Jane on 10-25-2024 SARS-CoV-2 (COVID-19) Ab IA Ql COVID Cepheid Abnormal Negative [facility] Comment on above: This is a duplicate [...] or Cepheid Disclaimer revoked sooner. PERFORMED BY: [address] [address] PATHOLOGIST DELICATESSEN CLERK MAY HYDE M.D. Normal The [facility] Comment on above: Performed By: #### C MP #### [facility] [address] [place] [address] [place] Calcium [Mass/volume] in Ser um or PlasmaOrdered By: Daniele Jane on 10-25-2024 Calcium [Mass/Vol] Calcium [Mass/volume ] in Serum or Plasma 8.6-10.3 [facility] Carbon dioxide, total [Moles /volume] in Serum or PlasmaOrdered By: Daniele Jane on 10-25-2024 CO2 [Moles/Vol] Carbon dioxide, tota l [Moles/volume] in Serum or Plasma 21.0-31.0 [facility] Cepheid COVID PCR Positiveon 10-25-2024 SARS-CoV-2 (COVID-19) RNA FERN+probe Ql (Unsp spec) Positive Critically abnormal Negative [facility] Comment on above: Result Comment: This is a duplicate Cepheid Xpert Xpress CoV-2/Flu/RSV Plus RNA by RT-PCR result to be used for statistical tracking purpose only. PERFORMED BY: [address] [address] PATHOLOGIST DELICATESSEN CLERK MAY HYDE M.D. Performed By: #### C MP #### [facility] [address] [place] [address] [place] Chloride [Moles/volume] in S oziel or PlasmaOrdered By: Daniele Jane on 10-25-2024 Chloride [Moles/Vol] Chloride [Moles/vol ume] in Serum or Plasma 98-107 [facility] Complete Blood Count Auto Di ffon 10-25-2024 Basophils (Bld) [#/Vol] 0.1 10*3/uL Normal 0.0-0.2 [facility] Comment on above: Result Comment: PERF ORMED BY: [place] [address] PATHOLOGIST DELICATESSEN CLERK MAY HYDE M.D. Performed By: #### C MP #### [address] Basophils/100 WBC (Bld) 0.9 % Normal . [facility] Comment on above: Performed By: #### C MP #### [address] Eosinophils (Bld) [#/Vol] 0.1 10*3/uL Normal 0.0-0.45 [facility] Comment on above: Performed By: #### C MP #### [address] Eosinophils/100 WBC (Bld) 1.5 % Normal . [facility] Comment on above: Performed By: #### C MP #### [address] Erythrocyte distribution width (RBC) [Ratio] 15.3 % Normal 11.9-15.3 [facility] Comment on above: Performed By: #### C MP #### [address] Hematocrit (Bld) [Volume fraction] 36.2 % Normal 34.0-46.4 [facility] Comment on above: Performed By: #### C MP #### [address] Hemoglobin (Bld) [Mass/Vol] 12.2 g/dL Normal 11.8-15.4 [facility] Comment on above: Performed By: #### C MP #### [address] Lymphocytes (Bld) [#/Vol] 0.8 10*3/uL Low 1.00-4.8 [facility] Comment on above: Performed By: #### C MP #### [address] Lymphocytes/100 WBC (Bld) 9.8 % Normal . [facility] Comment on above: Performed By: #### C MP #### [address] MCH (RBC) [Entitic mass] 29.5 pg Normal 24.7-34.3 [facility] Comment on above: Performed By: #### C MP #### [address] MCV (RBC) [Entitic vol] 87.6 fL Normal 80-100 [facility] Comment on above: Performed By: #### C MP #### [address] Mean Corpuscular HGB Conc 33.7 g/dL Normal 32.0-35.0 [facility] Comment on above: Performed By: #### C MP #### [address] Monocytes (Bld) [#/Vol] 0.8 10*3/uL Normal 0.0-0.8 [facility] Comment on above: Performed By: #### C MP #### [address] Monocytes/100 WBC (Bld) 25.33 % High 0.00-20.00 [facility] Comment on above: Result Comment: For adults in ED, MDW > 20.0 may be associated with a higher risk of sepsis during the first 12 hrs of hospital admission Performed By: #### C MP #### [address] Monocytes/100 WBC (Bld) 10.7 % Normal . [facility] Comment on above: Performed By: #### C MP #### [address] Neutrophils (Bld) [#/Vol] 6.1 10*3/uL Normal 1.8-7.7 [facility] Comment on above: Performed By: #### C MP #### [facility] [address] [place] [address] [place] Neutrophils/100 WBC (Bld) 77.1 % Normal . [facility] Comment on above: Performed By: #### C MP #### [facility] [address] [place] [address] [place] NRBC% 0.1 /100{WBC} Normal 0-0.5 [facility] Comment on above: Performed By: #### C MP #### [facility] [address] [place] [address] [place] Platelet mean volume (Bld) [Entitic vol] 9.0 fL Normal 6.3-10.7 The [facility] Comment on above: Performed By: #### C MP #### [facility] [address] [place] [address] [place] Platelets (Bld) [#/Vol] 142 10*3/uL Low 150-450 [facility] Comment on above: Performed By: #### C MP #### [facility] [address] [place] [address] [place] RBC (Bld) [#/Vol] 4.13 10*6/uL Normal 3.60-5.00 The [facility] Comment on above: Performed By: #### C MP #### [facility] [address] [place] [address] [place] WBC (Bld) [#/Vol] 7.9 10*3/uL Normal 3.8-11.6 [facility] Comment on above: Performed By: #### C MP #### [place] [address] [place] Creatinine [Mass/volume] in Serum or PlasmaOrdered By: Daniele Jane on 10-25-2024 Creatinine [Mass/Vol] Creatinine [Mass/v olume] in Serum or Plasma High 0.60-1.20 [facility] ECG 12 lead ECGon 10-25-2024 ECG 12 lead ECG [facility] [place] [address] [place] [address] Electrocardiograph Report Signed Patient: Joe Call MR#: [id number] 0 : 1945 Acct:[id number] Age/Sex: 79 / F ADM Date: 10/25/24 Loc: ER Room: Type: [facility] ER Attending Dr: Ordering Provider: [...] sinus arrhythmia Confirmed by Daniele Jane DO ([id number]) on 10/25/2024 2:01:48 PM Referred By: Electronically Signed By: Daniele Jane DO Transcribed By: MUS Signed By Daniele Jane DO 1401 Normal The [facility] Eosinophils Auto (Bld) [#/Vo l]Ordered By: Daniele Jane on 10-25-2024 Eosinophils (Bld) [#/Vol] Automated eosinophil count 0.0-0.45 [facility] Eosinophils/100 WBC Auto (Bl d)Ordered By: Daniele Jane on 10-25-2024 Eosinophils/100 WBC (Bld) Automated eosinophil % . [facility] Erythrocyte distribution wid th Auto (RBC) [Ratio]Ordered By: Daniele Jane on 10-25-2024 Erythrocyte distribution width (RBC) [Ratio] Erythrocyte distribution width [Ratio] by Automated count 11.9-15.3 [facility] Glucose [Mass/volume] in Ser um or PlasmaOrdered By: Daniele Jane on 10-25-2024 Glucose [Mass/Vol] Glucose [Mass/volume ] in Serum or Plasma High 70-100 [facility] Comment on above: ADA recommended refe rence rangeRandom Glucose Reference Range is dependent on time and content of last meal. Glucose of more than 200 mg/dL in a nonstressed, ambulatory subject supports the diagnosis of Diabetes Mellitus. Hematocrit Auto (Bld) [Volum e fraction]Ordered By: Daniele Jane on 10-25-2024 Hematocrit (Bld) [Volume fraction] Hematocrit [Volume Fraction] of Blood by Automated count 34.0-46.4 [facility] Hemoglobin [Mass/volume] in BloodOrdered By: Daniele Jane on 10-25-2024 Hemoglobin (Bld) [Mass/Vol] Hemoglobin [Mass/volume] in Blood 11.8-15.4 [facility] INR in Platelet poor plasma by Coagulation assayOrdered By: Daniele Jane on 10-25-2024 INR Coag (PPP) [Relative time] INR in Platelet poor plasma by Coagulation assay [facility] Comment on above: INR Therapeutic Rang e [...] Blood by Automated coun 3.8-11.6 [facility] Lymphocytes Auto (Bld) [#/Vo l]Ordered By: Daniele Jane on 10-25-2024 Lymphocytes (Bld) [#/Vol] Lymphocytes [#/volume] in Blood by Automated count Low 1.00-4.8 [facility] Lymphocytes/100 WBC Auto (Bl d)Ordered By: Daniele Jane on 10-25-2024 Lymphocytes/100 WBC (Bld) Lymphocytes/100 leukocytes in Blood by Automated count . [facility] MCH Auto (RBC) [Entitic mass ]Ordered By: Daniele Jane on 10-25-2024 MCH (RBC) [Entitic mass] MCH [Entitic mass] by Automated count 24.7-34.3 [facility] MCHC Auto (RBC) [Mass/Vol]Or dered By: Daniele Jane on 10-25-2024 MCHC (RBC) [Mass/Vol] MCHC [Mass/volume] by Automated count 32.0-35.0 [facility] MCV Auto (RBC) [Entitic vol] Ordered By: Daniele Jane on 10-25-2024 MCV (RBC) [Entitic vol] MCV [Entitic volume] by Automated count 80-100 [facility] Monocyte distribution width [Entitic volume] in Blood by AutomatedOrdered By: Daniele Jane on 10-25-2024 Monocyte distribution width Auto (Bld) [Entitic vol] Monocyte distribution width [Entitic volume] in Blood by Automated High 0.00-20.00 [facility] Comment on above: For adults in ED, MD W > 20.0 may be associated with a higher risk of sepsis during the first 12 hrs of hospital admission Monocytes Auto (Bld) [#/Vol] Ordered By: Daniele Jane on 10-25-2024 Monocytes (Bld) [#/Vol] Automated blood monocyte count 0.0-0.8 [facility] Monocytes/100 WBC Auto (Bld) Ordered By: Daniele Jane on 10-25-2024 Monocytes/100 WBC (Bld) Automated monocyte % . [facility] Natriuretic peptide B [Mass/ Vol]Ordered By: Daniele Jane on 10-25-2024 Natriuretic peptide B (Bld) [Mass/Vol] BNP ser/plas High 5-100 [facility] Neutrophils Auto (Bld) [#/Vo l]Ordered By: Daniele Jane on 10-25-2024 Neutrophils (Bld) [#/Vol] Neutrophils [#/volume] in Blood by Automated count 1.8-7.7 [facility] Neutrophils/100 WBC Auto (Bl d)Ordered By: Daniele Jane on 10-25-2024 Neutrophils/100 WBC (Bld) Automated neutrophil % . [facility] No Panel InformationOrdered By: Daniele Jane on 10-25-2024 Estimated GFR (CKD-EPI) 41.704 mL/Min [facility] Creatinine Clearance (Chem 46.58 [facility] Nucleated erythrocytes [Pres ence] in Blood by Automated countOrdered By: Daniele Jane on 10-25-2024 Nucleated RBC Auto Ql (Bld) Nucleated erythrocytes [Presence] in Blood by Automated count 0-0.5 [facility] Partial Thromboplastin Timeo n 10-25-2024 aPTT Coag (Bld) [Time] 28.6 s Normal 25.1-36.5 Th e [facility] Comment on above: Result Comment: A he matocrit value greater than 55% may lead to inaccurate results in coagulation testing. Patients having hematocrit values >55% require a special collection tube for coagulation studies. Please contact the laboratory at [phone] for redraw instructions. PERFORMED BY: [facility] [address] [place] [address] PATHOLOGIST DELICATESSEN CLERK MAY HYDE M.D. Performed By: #### G LULS #### Point of Care testing , Platelet mean volume Auto (B ld) [Entitic vol]Ordered By: Daniele Jane on 10-25-2024 Platelet mean volume (Bld) [Entitic vol] Platelet mean volume [Entitic volume] in Blood by Automated count 6.3-10.7 [facility] Platelets Auto (Bld) [#/Vol] Ordered By: Daniele Jane on 10-25-2024 Platelets (Bld) [#/Vol] Platelets [#/volume] in Blood by Automated count Low 150-450 [facility] Potassium [Moles/volume] in Serum or PlasmaOrdered By: Daniele Jane on 10-25-2024 Potassium [Moles/Vol] Potassium [Moles/v olume] in Serum or Plasma 3.5-5.1 [facility] Prothrombin Time INRon 10-25 INR Coag (PPP) [Relative time] 1.2 {INR} Normal [facility] Comment on above: Result Comment: [...] (PPP) [Time] 13.5 s High 9.0-12.9 [facility] Comment on above: Result Comment: A he matocrit value greater than 55% may lead to inaccurate results in coagulation testing. Patients having hematocrit values >55% require a special collection tube for coagulation studies. Please contact the laboratory at [phone] for redraw instructions. Performed By: #### G LULS #### Point of Care testing , Prothrombin time (PT)Ordered By: Daniele Jane on 10-25-2024 PT Coag (PPP) [Time] Prothrombin time (PT) High 9.0- 12.9 [facility] Comment on above: A hematocrit value g reater than 55% may lead to inaccurate results in coagulation testing. Patients having hematocrit values >55% require a special collection tube for coagulation studies. Please contact the laboratory at [phone] for redraw instructions. RBC Auto (Bld) [#/Vol]Ordere d By: Daniele Jane on 10-25-2024 RBC (Bld) [#/Vol] Erythrocytes [#/volu me] in Blood by Automated count 3.60-5.00 [facility] Respiratory specimen influen za A virus, influenza B virus, respiratory syncytical virOrdered By: Daniele Jane on 10-25-2024 SARS-CoV-2 (COVID-19) RNA FERN+probe Ql (Unsp spec) Respiratory specimen influenza A virus, influenza B virus, respiratory syncytical vir [facility] SARS-CoV-2 (COVID-19) RNA FERN+probe Ql (Unsp spec) Respiratory specimen influenza A virus, influenza B virus, respiratory syncytical vir [facility] Serum or plasma anion gap de terminationOrdered By: Daniele Jane on 10-25-2024 Anion gap [Moles/Vol] Serum or plasma an ion gap determination 6.0-15.0 [facility] Sodium [Moles/volume] in Ser um or PlasmaOrdered By: Daniele Jane on 10-25-2024 Sodium [Moles/Vol] Sodium [Moles/volume ] in Serum or Plasma Low 136-145 [facility] Troponin I High Sensitivityo n 10-25-2024 Troponin I High Sensitivity 14.6 pg/mL Normal 0.0-15.0 [facility] Comment on above: Result Comment: PERF ORMED BY: [place] [address] PATHOLOGIST DELICATESSEN CLERK MAY HYDE M.D. Performed By: #### C MP #### [address] Troponin I.cardiac [Mass/vol ume] in Serum or Plasma by Detection limit <= 0.01 ng/Ordered By: Daniele Jane on 10-25-2024 Troponin I.cardiac DL <= 0.01 ng/mL [Mass/Vol] Troponin I.cardiac [Mass/volume] in Serum or Plasma by Detection limit <= 0.01 ng/ 0.0-15.0 [facility] Urea nitrogen [Mass/volume] in Serum or PlasmaOrdered By: Daniele Jane on 10-25-2024 Urea nitrogen [Mass/Vol] Urea nitrogen [Mass/volume] in Serum or Plasma High 7-25 [facility] WBC Auto (Bld) [#/Vol]Ordere d By: Daniele Jane on 10-25-2024 WBC (Bld) [#/Vol] Leukocytes [#/volume ] in Blood by Automated count 3.8-11.6 [facility] XR chest 1V portableon 10-25 XR chest 1V portable [facility] [place] [id number] XRay Report Signed Patient: Joe Call MR#: [id number] 0 : 1945 Acct:[id number] Age/Sex: 79 / F ADM Date: 10/25/24 Loc: ER Room: Type: [facility] ER Attending Dr: Copies to: [...] Jarred Randolph M.D.10/25/2024 7:35 AM Dictation Location: [facility]--20 Transcribed By: [facility] 10/25/2435 Dictated By: Jarred Randolph DO 10/25/24 0734 Signed By: 10/25/24734 Normal [facility] aPTT in Platelet poor plasma by Coagulation assayOrdered By: Daniele Jane on 10-25-2024 aPTT Coag (PPP) [Time] Activated partial thromboplastin time (aPTT) in platelet poor plasma by coagulation a 25.1-36.5 [facility] Comment on above: A hematocrit value g reater than 55% may lead to inaccurate results in coagulation testing. Patients having hematocrit values >55% require a special collection tube for coagulation studies. Please contact the laboratory at [phone] for redraw instructions. Appearance of UrineOrdered B y: Zhang Norwood on 10-22-2024 Appearance (U) Urine appearance Abnormal Clear [facility] Bacteria [Presence] in Urine by AutomatedOrdered By: Zhang Norwood on 10-22-2024 Bacteria Auto Ql (U) Bacteria [Presence] in Urine by Automated None Seen [facility] Bilirubin Test strip Ql (U)O rdered By: Zhang Norwood on 10-22-2024 Bilirubin Ql (U) Bilirubin.total [Presence] in Urine by Test strip Negative [facility] Calcium oxalate crystals [Pr esence] in Urine by Computer assisted methodOrdered By: Zhang Norwood on 10-22-2024 Calcium oxalate crystals Computer assisted Ql (U) Calcium oxalate crystals [Presence] in Urine by Computer assisted method [facility] Color Auto (U)Ordered By: Renetta [place] on 10-22-2024 Color (U) Color of Urine by Auto Yellow [facility] Dipstick and Microscopicon 1 12-23-2023 Appearance (U) Cloudy Critically abnormal Clear [facility] Comment on above: Order Comment: Name Collection Type:: Peacock Catheter Performed By: #### B TICKET MAKER, HS TROP, PT, CBC, BMP #### [facility] [address] [place] [address] [place] Bacteria,Urine None Seen Normal None Seen [facility] Comment on above: Order Comment: Name Collection Type:: Peacock Catheter Performed By: #### B TICKET MAKER, HS TROP, PT, CBC, BMP #### [facility] [address] [place] [address] [place] Bilirubin,Urine Negative Normal Negative [facility] Comment on above: Order Comment: Name Collection Type:: Peacock Catheter Performed By: #### B TICKET MAKER, HS TROP, PT, CBC, BMP #### [facility] [address] Calcium Oxalate Crystals,Urine Rare Normal [facility] Comment on above: Order Comment: Name Collection Type:: Peacock Catheter Performed By: #### B TICKET MAKER, HS TROP, PT, CBC, BMP #### [facility] [address] [place] [address] [place] Color (U) Yellow Normal Yellow [facility] Comment on above: Order Comment: Name Collection Type:: Peacock Catheter Performed By: #### B TICKET MAKER, HS TROP, PT, CBC, BMP #### [facility] [address] [place] [address] [place] Glucose Ql (U) 30 mg/dL High Normal [facility] Comment on above: Order Comment: Name Collection Type:: Peacock Catheter Performed By: #### B TICKET MAKER, HS TROP, PT, CBC, BMP #### [facility] [address] [place] [address] [place] Hyaline Casts,Urine 0 [LPF] Normal 0-8 [facility] Comment on above: Order Comment: Name Collection Type:: Peacock Catheter Performed By: #### B TICKET MAKER, HS TROP, PT, CBC, BMP #### [facility] [address] [place] [address] [place] Ketones Ql (U) Negative Normal Negative [facility] Comment on above: Order Comment: Name Collection Type:: Peacock Catheter Performed By: #### B TICKET MAKER, HS TROP, PT, CBC, BMP #### [address] Leukocyte esterase Test strip Ql (U) 1+ High Negative [facility] Comment on above: Order Comment: Name Collection Type:: Peacock Catheter Performed By: #### B TICKET MAKER, HS TROP, PT, CBC, BMP #### [address] Mucus,Urine Rare Normal [facility] Comment on above: Order Comment: Name Collection Type:: Peacock Catheter Result Comment: PERF ORMED BY: [place] [address] PATHOLOGIST DELICATESSEN CLERK MAY HYDE M.D. Performed By: #### B TICKET MAKER, HS TROP, PT, CBC, BMP #### [address] Nitrite,Urine Negative Normal Negative [facility] Comment on above: Order Comment: Name Collection Type:: Peacock Catheter Performed By: #### B TICKET MAKER, HS TROP, PT, CBC, BMP #### [address] Occult Blood,Urine 3+ High Negative [facility] Comment on above: Order Comment: Name Collection Type:: Peacock Catheter Result Comment: PERF ORMED BY: [place] [address] PATHOLOGIST DELICATESSEN CLERK MAY HYDE M.D. Performed By: #### B TICKET MAKER, HS TROP, PT, CBC, BMP #### [address] pH (U) 5.5 [pH] Normal 5.0-9.0 [facility] Comment on above: Order Comment: Name Collection Type:: Peacock Catheter Performed By: #### B TICKET MAKER, HS TROP, PT, CBC, BMP #### [place] [address] [place] Protein (U) [Mass/Vol] 300 mg/dL High Negative Th e [facility] Comment on above: Order Comment: Name Collection Type:: Peacock Catheter Performed By: #### B TICKET MAKER, HS TROP, PT, CBC, BMP #### [facility] [address] RBC,Urine Innumerable High 0-4 [facility] Comment on above: Order Comment: Name Collection Type:: Peacock Catheter Performed By: #### B TICKET MAKER, HS TROP, PT, CBC, BMP #### [facility] [address] Specificy [place],Urine 1.019 Normal 1.001-1.030 [facility] Comment on above: Order Comment: Name Collection Type:: Peacock Catheter Performed By: #### B TICKET MAKER, HS TROP, PT, CBC, BMP #### [address] Squamous Epithelial Cell,Urine 1 [HPF] Normal 0-2 [facility] Comment on above: Order Comment: Name Collection Type:: Peacock Catheter Performed By: #### B TICKET MAKER, HS TROP, PT, CBC, BMP #### [address] Urobilinogen,Urine Normal Normal Normal [facility] Comment on above: Order Comment: Name Collection Type:: Peacock Catheter Performed By: #### B TICKET MAKER, HS TROP, PT, CBC, BMP #### [address] WBC,Urine 10 [HPF] High 0-4 [facility] Comment on above: Order Comment: Name Collection Type:: Peacock Catheter Performed By: #### B TICKET MAKER, HS TROP, PT, CBC, BMP #### [address] Epithelial cells.squamous [# /area] in Urine sediment by Automated countOrdered By: Zhang Norwood on 10-22-2024 Epithelial cells.squamous Auto (Urine sed) [#/Area] Epithelial cells.squamous [#/area] in Urine sediment by Automated count 0-2 [facility] Erythrocytes [#/area] in Uri ne sediment by Automated countOrdered By: Zhang Norwood on 10-22-2024 RBC Auto (Urine sed) [#/Area] Erythrocytes [#/area] in Urine sediment by Automated count [facility] 0-4 [facility] Glucose [Mass/volume] in Uri ne by Test stripOrdered By: Zhang Norwood on 10-22-2024 Glucose Test strip (U) [Mass/Vol] Glucose [Mass/volume] in Urine by Test strip [facility] Normal [facility] Hemoglobin Test strip Ql (U) Ordered By: Zhang Norwood on 10-22-2024 Hemoglobin Ql (U) Hemoglobin [Presence ] in Urine by Test strip [facility] Negative [facility] Hyaline casts [#/area] in Ur ine sediment by Automated countOrdered By: Zhang Norwood on 10-22-2024 Hyaline casts Auto (Urine sed) [#/Area] Hyaline casts [#/area] in Urine sediment by Automated count 0-8 [facility] Ketones Test strip Ql (U)Ord ered By: Zhang Norwood on 10-22-2024 Ketones Ql (U) Ketones [Presence] i n Urine by Test strip Negative [facility] Leukocyte esterase [Presence ] in Urine by Test stripOrdered By: Zhang Norwood on 10-22-2024 Leukocyte esterase Test strip Ql (U) Leukocyte esterase [Presence] in Urine by Test strip [facility] Negative [facility] Leukocytes [#/area] in Urine sediment by Automated countOrdered By: Zhang Norwood on 10-22-2024 WBC Auto (Urine sed) [#/Area] Leukocytes [#/area] in Urine sediment by Automated count [facility] 0-4 [facility] Mucus [Presence] in Urine by AutomatedOrdered By: Zhang Norwood on 10-22-2024 Mucus Auto Ql (U) Mucus [Presence] in Urine by Automated [facility] Nitrite Test strip Ql (U)Ord ered By: Zhang Norwood on 10-22-2024 Nitrite Ql (U) Nitrite [Presence] i n Urine by Test strip Negative [facility] Protein Test strip (U) [Mass /Vol]Ordered By: Zhang Norwood on 10-22-2024 Protein (U) [Mass/Vol] Protein [Mass/vol ume] in Urine by Test strip High Negative [facility] Specific gravity Test strip (U) [Rel density]Ordered By: Zhang Norwood on 10-22-2024 Specific gravity (U) [Rel density] Specific gravity of Urine by Test strip 1.001-1.030 [facility] Urine Cultureon 10-22-2024 Bacteria identified Cx Nom (U) 15,000 colonies/ml mixed bacterial skin contaminants 2 Days PERFORMED BY: [place] [address] PATHOLOGIST DELICATESSEN CLERK MAY HYDE M.D. Normal [facility] Comment on above: Performed By: #### B TICKET MAKER, HS TROP, PT, CBC, BMP #### [address] Urine cultureOrdered By: Hortensia Norwood on 10-22-2024 Bacteria identified Cx Nom (U) Urine culture [facility] Bacteria identified Cx Nom (U) Urine culture [facility] Urobilinogen Test strip (U) [Mass/Vol]Ordered By: Zhang Norwood on 10-22-2024 Urobilinogen (U) [Mass/Vol] Urobilinogen [Mass/volume] in Urine by Test strip Normal [facility] pH Test strip (U)Ordered By: Zhang Norwood on 10-22-2024 pH (U) pH of Urine by Test strip 5.0-9.0 [facility] A1C with Estimated Average G jade 10-20-2024 Glucose [Mass/Vol] 292 mg/dL Normal [facility] Comment on above: Result Comment: PERF ORMED BY: [place] [address] PATHOLOGIST DELICATESSEN CLERK MAY HYDE M.D. Performed By: #### G LUMARLEN #### Point of Care testing , HbA1c (Bld) [Mass fraction] 11.8 % High 4.3-5.6 [facility] Comment on above: Result Comment: Incr eased risk for diabetes: 5.7 - 6.4 diabetes: >6.4 glycemic control for adults with diabetes: <7.0 Performed By: #### G MICK #### Point of Care testing , Basic Metabolic Panelon 12-0 Anion gap [Moles/Vol] Not performed Normal 6.0-15.0 [facility] Comment on above: Performed By: #### B MP, CBC #### [facility] [address] Calcium [Mass/Vol] 8.7 mg/dL Normal 8.6-10.3 [facility] Comment on above: Performed By: #### B MP, CBC #### [facility] [address] [place] [address] [place] Chloride [Moles/Vol] 97 mmol/L Low 98-107 [facility] Comment on above: Performed By: #### B MP, CBC #### [facility] [address] CO2 [Moles/Vol] 26.0 mmol/L Normal 21.0-31.0 [facility] Comment on above: Performed By: #### B MP, CBC #### [facility] [address] [place] [address] [place] Creatinine [Mass/Vol] 3.06 mg/dL High 0.60-1.20 [facility] Comment on above: Performed By: #### B MP, CBC #### [facility] [address] Creatinine Clr Calc Pharmacy 18.79 Normal [facility] Comment on above: Performed By: #### B MP, CBC #### [facility] [address] [place] [address] [place] Estimated GFR 15.067 mL/Min Normal [facility] Comment on above: Performed By: #### B MP, CBC #### [facility] [address] [place] [id number] [place] Glucose [Mass/Vol] 159 mg/dL Significant change up 70-100 [facility] Comment on above: Result Comment: [place] Glucose Reference Range is dependent on time and content of last meal. Glucose of more than 200 mg/dL in a nonstressed, ambulatory subject supports the diagnosis of Diabetes Mellitus. ADA recommended reference range Performed By: #### B MP, CBC #### [facility] [address] Potassium Normal 3.5-5.1 [facility] Comment on above: Result Comment: Spec imen hemolyzed, redraw requested Performed By: #### B MP, CBC #### [facility] [address] Sodium Normal 136-145 [facility] Comment on above: Result Comment: Spec imen hemolyzed, redraw requested Performed By: #### B MP, CBC #### [facility] [address] Urea nitrogen [Mass/Vol] 91 mg/dL High 7-25 [facility] Comment on above: Performed By: #### B MP, CBC #### [facility] [address] Blood estimated average gluc ose determination by estimation from glycated hemoglobinOrdered By: Kavin Escobar on 10-20-2024 Average glucose Estimated from glycated hemoglobin (Bld) [Mass/Vol] Glucose mean value [Mass/volume] in Blood Estimated from glycated hemoglobin [facility] Calcium [Mass/volume] in Ser um or PlasmaOrdered By: Mauri Chavira on 10-20-2024 Calcium [Mass/Vol] Calcium [Mass/volume ] in Serum or Plasma 8.6-10.3 [facility] Carbon dioxide, total [Moles /volume] in Serum or PlasmaOrdered By: Mauri Chavira on 10-20-2024 CO2 [Moles/Vol] Carbon dioxide, tota l [Moles/volume] in Serum or Plasma 21.0-31.0 [facility] Chloride [Moles/volume] in S oziel or PlasmaOrdered By: Mauri Chavira on 10-20-2024 Chloride [Moles/Vol] Chloride [Moles/vol ume] in Serum or Plasma Low 98-107 [facility] Creatinine [Mass/volume] in Serum or PlasmaOrdered By: Mauri Chavira on 10-20-2024 Creatinine [Mass/Vol] Creatinine [Mass/v olume] in Serum or Plasma High 0.60-1.20 [facility] Glucose Glucometer (BldC) [M ass/Vol]Ordered By: Kavin Escobar on 10-20-2024 Glucose [Mass/Vol] Capillary blood gluc ose measurement by glucometer (mass/volume) [facility] Comment on above: Random Glucose Refer ence Range is dependent on time and content of last meal. Glucose of more than 200 mg/dL in a nonstressed, ambulatory subject supports the diagnosis of Diabetes Mellitus. Glucose Poct Glucometerson 1 12-21-2023 Glucose [Mass/Vol] 209 mg/dL Normal [facility] Comment on above: Result Comment: [place] Glucose Reference Range is dependent on time and content of last meal. Glucose of more than 200 mg/dL in a nonstressed, ambulatory subject supports the diagnosis of Diabetes Mellitus. PERFORMED BY: [place] [id number] PATHOLOGIST DELICATESSEN CLERK MAY HYDE M.D. Performed By: #### B TICKET MAKER, HS TROP, PT, CBC, BMP #### [facility] [address] [place] [address] [facility] Glucose [Mass/Vol] 164 mg/dL Normal [facility] Comment on above: Result Comment: [place] om Glucose Reference Range is dependent on time and content of last meal. Glucose of more than 200 mg/dL in a nonstressed, ambulatory subject supports the diagnosis of Diabetes Mellitus. PERFORMED BY: [facility] [address] [facility] [place] [id number] PATHOLOGIST DELICATESSEN CLERK MAY HYDE M.D. Performed By: #### B TICKET MAKER, HS TROP, PT, CBC, BMP #### [facility] [address] [place] [address] [place] Glucose [Mass/volume] in Ser um or PlasmaOrdered By: Mauri Chavira on 10-20-2024 Glucose [Mass/Vol] Glucose [Mass/volume ] in Serum or Plasma Invalid Interpretation Code 70-100 [facility] Comment on above: Delta: [id number] recommended reference rangeRandom Glucose Reference Range is dependent on time and content of last meal. Glucose of more than 200 mg/dL in a nonstressed, ambulatory subject supports the diagnosis of Diabetes Mellitus. Hemoglobin A1c/Hemoglobin.to vinicio in BloodOrdered By: Kavin Escobar on 10-20-2024 HbA1c (Bld) [Mass fraction] Hemoglobin A1c percentage High 4.3-5.6 [facility] Comment on above: Increased risk for d iabetes: 5.7 - 6.4diabetes: >6.4glycemic control for adults with diabetes: <7.0 Magnesiumon 10-20-2024 Magnesium Normal 1.9-2.7 [facility] Comment on above: Result Comment: Spec imen hemolyzed, redraw requested PERFORMED BY: [place] [address] PATHOLOGIST DELICATESSEN CLERK MAY HYDE M.D. Performed By: #### B MP, CBC #### [address] Magnesium [Mass/volume] in S oziel or PlasmaOrdered By: Mauri Chavira on 10-20-2024 Magnesium [Mass/Vol] Magnesium [Mass/vol ume] in Serum or Plasma 1.9-2.7 [facility] No Panel InformationOrdered By: Mauri Chavira on 10-20-2024 Estimated GFR (CKD-EPI) 15.067 mL/Min [facility]acy Creatinine Clearance (Chem 18.79 [facility] Potassium [Moles/volume] in Serum or PlasmaOrdered By: Mauri Chavira on 10-20-2024 Potassium [Moles/Vol] Potassium [Moles/v olume] in Serum or Plasma 3.5-5.1 [facility] Redraw Magnesiumon Magnesium [Mass/Vol] 1.9 mg/dL Normal 1.9-2.7 [facility] Comment on above: Result Comment: PERF ORMED BY: [address] [address] PATHOLOGIST DELICATESSEN CLERK MAY HYDE M.D. Performed By: #### G LULS #### Point of Care testing , Redraw Magnesium Normal 1.9-2.7 [facility] Comment on above: Result Comment: Spec imen hemolyzed, redraw requested PERFORMED BY: [facility] [place] [place] [address] PATHOLOGIST DELICATESSEN CLERK MAY HYDE M.D. Performed By: #### G LULS #### Point of Care testing , Redraw Potassiumon Potassium [Moles/Vol] 4.0 mmol/L Normal 3.5-5.1 [facility] Comment on above: Performed By: #### G LULS #### Point of Care testing , Redraw Potassium Normal 3.5-5.1 [facility] Comment on above: Result Comment: Spec imen hemolyzed, redraw requested Performed By: #### G LULS #### Point of Care testing , Redraw Sodiumon 10-20-2024 Sodium [Moles/Vol] 134 mmol/L Low 136-145 [facility] Comment on above: Performed By: #### G LULS #### Point of Care testing , Serum or plasma anion gap de terminationOrdered By: Mauri Chavira on 10-20-2024 Anion gap [Moles/Vol] Serum or plasma an ion gap determination [facility] Comment on above: Test not performed Sodium [Moles/volume] in Ser um or PlasmaOrdered By: Mauri Chavira on 10-20-2024 Sodium [Moles/Vol] Sodium [Moles/volume ] in Serum or Plasma Low 136-145 [facility] Urea nitrogen [Mass/volume] in Serum or PlasmaOrdered By: Mauri Chavira on 10-20-2024 Urea nitrogen [Mass/Vol] Urea nitrogen [Mass/volume] in Serum or Plasma High 7-25 [facility] Basic Metabolic Panelon 12-0 Anion gap [Moles/Vol] 14.7 mmol/L Normal 6.0-15.0 Th e [facility] Comment on above: Performed By: #### B TICKET MAKER, HS TROP, PT, CBC, BMP #### [facility] [address] Calcium [Mass/Vol] 9.1 mg/dL Normal 8.6-10.3 [facility] Comment on above: Performed By: #### B TICKET MAKER, HS TROP, PT, CBC, BMP #### [facility] [address] Chloride [Moles/Vol] 95 mmol/L Low 98-107 [facility] Comment on above: Performed By: #### B TICKET MAKER, HS TROP, PT, CBC, BMP #### [facility] [address] CO2 [Moles/Vol] 28.6 mmol/L Normal 21.0-31.0 [facility] Comment on above: Performed By: #### B TICKET MAKER, HS TROP, PT, CBC, BMP #### [facility] [address] Creatinine [Mass/Vol] 2.71 mg/dL Significan t change up 0.60-1.20 [facility] Comment on above: Performed By: #### B TICKET MAKER, HS TROP, PT, CBC, BMP #### [facility] [address] Creatinine Clr Calc Pharmacy 21.49 Normal [facility] Comment on above: Performed By: #### B TICKET MAKER, HS TROP, PT, CBC, BMP #### [facility] [address] Estimated GFR 17.432 mL/Min Normal [facility] Comment on above: Performed By: #### B TICKET MAKER, HS TROP, PT, CBC, BMP #### [facility] [address] [place] [address] [place] Glucose [Mass/Vol] 288 mg/dL High 70-100 [facility] Comment on above: Result Comment: [place] Glucose Reference Range is dependent on time and content of last meal. Glucose of more than 200 mg/dL in a nonstressed, ambulatory subject supports the diagnosis of Diabetes Mellitus. ADA recommended reference range Performed By: #### B TICKET MAKER, HS TROP, PT, CBC, BMP #### [address] Potassium [Moles/Vol] 4.3 mmol/L Normal 3.5-5.1 [facility] Comment on above: Performed By: #### B TICKET MAKER, HS TROP, PT, CBC, BMP #### [facility] [address] Sodium [Moles/Vol] 134 mmol/L Low 136-145 [facility] Comment on above: Performed By: #### B TICKET MAKER, HS TROP, PT, CBC, BMP #### [address] Urea nitrogen [Mass/Vol] 77 mg/dL High 7-25 [facility] Comment on above: Performed By: #### B TICKET MAKER, HS TROP, PT, CBC, BMP #### [address] Glucose Poct Glucometerson 1 12-20-2023 Glucose [Mass/Vol] 222 mg/dL Normal [facility] Comment on above: Result Comment: [facility] Glucose Reference Range is dependent on time and content of last meal. Glucose of more than 200 mg/dL in a nonstressed, ambulatory subject supports the diagnosis of Diabetes Mellitus. PERFORMED BY: [place] [address] PATHOLOGIST DELICATESSEN CLERK MAY HYDE M.D. Performed By: #### G LULS #### Point of Care testing , Glucose [Mass/Vol] 306 mg/dL Normal [facility] Comment on above: Result Comment: [facility] Glucose Reference Range is dependent on time and content of last meal. Glucose of more than 200 mg/dL in a nonstressed, ambulatory subject supports the diagnosis of Diabetes Mellitus. PERFORMED BY: [place] [address] PATHOLOGIST DELICATESSEN CLERK MAY HYDE M.D. Performed By: #### G LULS #### Point of Care testing , Glucose [Mass/Vol] 342 mg/dL Normal [facility] Comment on above: Result Comment: [place] om Glucose Reference Range is dependent on time and content of last meal. Glucose of more than 200 mg/dL in a nonstressed, ambulatory subject supports the diagnosis of Diabetes Mellitus. PERFORMED BY: [place] [address] PATHOLOGIST DELICATESSEN CLERK MAY HYDE M.D. Performed By: #### B MP, CBC #### [address] Glucose [Mass/Vol] 267 mg/dL Normal [facility] Comment on above: Result Comment: [place] om Glucose Reference Range is dependent on time and content of last meal. Glucose of more than 200 mg/dL in a nonstressed, ambulatory subject supports the diagnosis of Diabetes Mellitus. PERFORMED BY: [place] [address] PATHOLOGIST DELICATESSEN CLERK MAY HYDE M.D. Performed By: #### B MP, CBC #### [place] [id number] [facility] Magnesiumon 10-19-2024 Magnesium [Mass/Vol] 2.0 mg/dL Normal 1.9-2.7 [facility] Comment on above: Result Comment: PERF ORMED BY: [place] [address] PATHOLOGIST DELICATESSEN CLERK MAY HYDE M.D. Performed By: #### B TICKET MAKER, HS TROP, PT, CBC, BMP #### [address] Basic Metabolic Panelon 12-0 Anion gap [Moles/Vol] 15.4 mmol/L High 6.0-15.0 [facility] Comment on above: Order Comment: REY [place] NOTIFIED. B [id number]. Performed By: #### B TICKET MAKER, HS TROP, PT, CBC, BMP #### [address] Calcium [Mass/Vol] 9.5 mg/dL Normal 8.6-10.3 [facility] Comment on above: Order Comment: REY [place] NOTIFIED. SMB 0442. Performed By: #### B TICKET MAKER, HS TROP, PT, CBC, BMP #### [facility] [address] Chloride [Moles/Vol] 97 mmol/L Low 98-107 [facility] Comment on above: Order Comment: REY [place]ARKER NOTIFIED. SMB 0442. Performed By: #### B TICKET MAKER, HS TROP, PT, CBC, BMP #### [address] CO2 [Moles/Vol] 29.7 mmol/L Normal 21.0-31.0 [facility] Comment on above: Order Comment: REY PARKER NOTIFIED. SMB 0442. Performed By: #### B TICKET MAKER, HS TROP, PT, CBC, BMP #### [address] Creatinine [Mass/Vol] 1.81 mg/dL High 0.60-1.20 [facility] Comment on above: Order Comment: REY PARKER NOTIFIED. SMB 0442. Performed By: #### B TICKET MAKER, HS TROP, PT, CBC, BMP #### [address] Creatinine Clr Calc Pharmacy 32.95 Normal [facility] Comment on above: Order Comment: REY [place]ER NOTIFIED. SMB 0442. Performed By: #### B TICKET MAKER, HS TROP, PT, CBC, BMP #### [address] Estimated GFR 28.294 mL/Min Normal [facility] Comment on above: Order Comment: REY PARKER NOTIFIED. SMB 0442. Performed By: #### B TICKET MAKER, HS TROP, PT, CBC, BMP #### [address] Glucose [Mass/Vol] 220 mg/dL High 70-100 [facility] Comment on above: Order Comment: REY PARKER NOTIFIED. SMB 0442. Result Comment: [place] Glucose Reference Range is dependent on time and content of last meal. Glucose of more than 200 mg/dL in a nonstressed, ambulatory subject supports the diagnosis of Diabetes Mellitus. ADA recommended reference range Performed By: #### B TICKET MAKER, HS TROP, PT, CBC, BMP #### [facility] [address] Potassium [Moles/Vol] 4.1 mmol/L Normal 3.5-5.1 [facility] Comment on above: Order Comment: REY PARKER NOTIFIED. SMB 0442. Performed By: #### B TICKET MAKER, HS TROP, PT, CBC, BMP #### [facility] [address] Sodium [Moles/Vol] 138 mmol/L Normal 136-145 [facility] Comment on above: Order Comment: REY PARKER NOTIFIED. SMB 0442. Performed By: #### B TICKET MAKER, HS TROP, PT, CBC, BMP #### [place] [address] [place] Urea nitrogen [Mass/Vol] 66 mg/dL High 7-25 [facility] Comment on above: Order Comment: REY PARKER NOTIFIED. SMB 0442. Performed By: #### B TICKET MAKER, HS TROP, PT, CBC, BMP #### [place] [address] [place] Free T4 (Free Thyroxine)on 12-19-2023 Free T4 [Mass/Vol] 1.26 ng/dL High 0.61-1.12 [facility] Comment on above: Order Comment: REY PARKER NOTIFIED. SMB 0442. Performed By: #### B TICKET MAKER, HS TROP, PT, CBC, BMP #### [address] Glucose Poct Glucometerson 12-19-2023 Glucose [Mass/Vol] 329 mg/dL Normal [facility] Comment on above: Result Comment: [place] Glucose Reference Range is dependent on time and content of last meal. Glucose of more than 200 mg/dL in a nonstressed, ambulatory subject supports the diagnosis of Diabetes Mellitus. PERFORMED BY: [place] [address] PATHOLOGIST DELICATESSEN CLERK MAY HYDE M.D. Performed By: #### B TICKET MAKER, HS TROP, PT, CBC, BMP #### [address] Glucose [Mass/Vol] 210 mg/dL Normal [facility] Comment on above: Result Comment: [place] om Glucose Reference Range is dependent on time and content of last meal. Glucose of more than 200 mg/dL in a nonstressed, ambulatory subject supports the diagnosis of Diabetes Mellitus. PERFORMED BY: [place] [address] PATHOLOGIST DELICATESSEN CLERK MAY HYDE M.D. Performed By: #### B TICKET MAKER, HS TROP, PT, CBC, BMP #### [place] [address] [place] Glucose [Mass/Vol] 251 mg/dL Normal [facility] Comment on above: Result Comment: [place] om Glucose Reference Range is dependent on time and content of last meal. Glucose of more than 200 mg/dL in a nonstressed, ambulatory subject supports the diagnosis of Diabetes Mellitus. PERFORMED BY: [place] [address] PATHOLOGIST DELICATESSEN CLERK MAY HYDE M.D. Performed By: #### B TICKET MAKER, HS TROP, PT, CBC, BMP #### [place] [address] [place] Glucose [Mass/Vol] 207 mg/dL Normal [facility] Comment on above: Result Comment: [place] om Glucose Reference Range is dependent on time and content of last meal. Glucose of more than 200 mg/dL in a nonstressed, ambulatory subject supports the diagnosis of Diabetes Mellitus. PERFORMED BY: [place] [address] PATHOLOGIST DELICATESSEN CLERK MAY HYDE M.D. Performed By: #### B TICKET MAKER, HS TROP, PT, CBC, BMP #### [address] Glucose [Mass/Vol] 188 mg/dL Normal [facility] Comment on above: Result Comment: [facility] Glucose Reference Range is dependent on time and content of last meal. Glucose of more than 200 mg/dL in a nonstressed, ambulatory subject supports the diagnosis of Diabetes Mellitus. PERFORMED BY: [place] [address] PATHOLOGIST DELICATESSEN CLERK MAY HYDE M.D. Performed By: #### B TICKET MAKER, HS TROP, PT, CBC, BMP #### [address] Magnesiumon 10-18-2024 Magnesium [Mass/Vol] 2.1 mg/dL Normal 1.9-2.7 [facility] Comment on above: Order Comment: REY [place] NOTIFIED. SMB 0442. Performed By: #### B TICKET MAKER, HS TROP, PT, CBC, BMP #### [address] Serum or plasma thyroperoxid ase antibody assay (units/volume)Ordered By: Mauri Chavira on 10-18-2024 TPO Ab Qn Serum or plasma thyroperoxidase antibody assay (units/volume) 0-34 [facility] Comment on above: Performed at: [facility] [address] [id number] Director: Dimitri Landis PhD, Phone: [phone] Thyroid Peroxidase Antibodie son 10-18-2024 Thyroid Peroxidase Antibodies <9 Normal 0-34 [facility] Comment on above: Order Comment: REY [place] NOTIFIED. SMB 0442. Result Comment: Perf ormed at: [facility] [address] [id number] Internet Marketer: Dimitri Landis PhD, Phone: [phone] PERFORMED BY: [place] [address] PATHOLOGIST DELICATESSEN CLERK MAY HYDE M.D. Performed By: #### B TICKET MAKER, HS TROP, PT, CBC, BMP #### [facility] [address] [place] [id number] [facility] Thyroid Stimulating Hormoneo n 10-18-2024 TSH Qn 1.86 m[IU]/L Normal 0.45-5.33 [facility] Comment on above: Order Comment: REY [place] NOTIFIED. SMB 2013. Result Comment: PERF ORMED BY: [address] [place] [address] PATHOLOGIST DELICATESSEN CLERK MAY HYDE M.D. Performed By: #### B TICKET MAKER, HS TROP, PT, CBC, BMP #### [facility] [address] Thyrotropin [Units/volume] i n Serum or PlasmaOrdered By: Mauri Chavira on 10-18-2024 TSH Qn Thyrotropin [Units/volume] in Serum or Plasma 0.45-5.33 [facility] Thyroxine (T4) free [Mass/vo lume] in Serum or PlasmaOrdered By: Mauri Chavira on 10-18-2024 Free T4 [Mass/Vol] Thyroxine (T4) free [Mass/volume] in Serum or Plasma High 0.61-1.12 [facility] Alanine aminotransferase [En zymatic activity/volume] in Serum or PlasmaOrdered By: Mauri Chavira on 10-17-2024 ALT [Catalytic activity/Vol] Alanine aminotransferase [Enzymatic activity/volume] in Serum or Plasma 7-52 [facility] Albumin [Mass/volume] in Ser um or Plasma by Bromocresol green (BCG) dye binding methoOrdered By: Mauri Chavira on 10-17-2024 Albumin BCG dye [Mass/Vol] Albumin [Mass/volume] in Serum or Plasma by Bromocresol green (BCG) dye binding metho 3.5-5.7 [facility] Alkaline phosphatase [Enzyma tic activity/volume] in Serum or PlasmaOrdered By: Mauri Chavira on 10-17-2024 ALP [Catalytic activity/Vol] Alkaline phosphatase [Enzymatic activity/volume] in Serum or Plasma 34-104 [facility] Aspartate aminotransferase [ Enzymatic activity/volume] in Serum or PlasmaOrdered By: Mauri Chavira on 10-17-2024 AST [Catalytic activity/Vol] Aspartate aminotransferase [Enzymatic activity/volume] in Serum or Plasma 13-39 [facility] Basophils Auto (Bld) [#/Vol] Ordered By: Mauri Chavira on 10-17-2024 Basophils (Bld) [#/Vol] Automated basophil count 0.0-0.2 [facility] Basophils/100 WBC Auto (Bld) Ordered By: Mauri Chavira on 10-17-2024 Basophils/100 WBC (Bld) Automated basophil % . [facility] Bilirubin.total [Mass/volume ] in Serum or PlasmaOrdered By: Mauri Chavira on 10-17-2024 Bilirubin [Mass/Vol] Bilirubin.total [Mass/volume] in Serum or Plasma 0.3-1.0 [facility] Complete Blood Count Auto Di ffon 10-17-2024 Basophils (Bld) [#/Vol] 0.1 10*3/uL Normal 0.0-0.2 [facility] Comment on above: Result Comment: PERF ORMED BY: [place] [address] PATHOLOGIST DELICATESSEN CLERK MAY HYDE M.D. Performed By: #### B MP, CBC #### [address] Basophils/100 WBC (Bld) 0.8 % Normal . [facility] Comment on above: Performed By: #### B MP, CBC #### [address] Eosinophils (Bld) [#/Vol] 0.1 10*3/uL Normal 0.0-0.45 [facility] Comment on above: Performed By: #### B MP, CBC #### [place] [address] [place] Eosinophils/100 WBC (Bld) 0.7 % Normal . [facility] Comment on above: Performed By: #### B MP, CBC #### [address] Erythrocyte distribution width (RBC) [Ratio] 15.4 % High 11.9-15.3 [facility] Comment on above: Performed By: #### B MP, CBC #### [address] Hematocrit (Bld) [Volume fraction] 40.4 % Normal 34.0-46.4 [facility] Comment on above: Performed By: #### B MP, CBC #### [address] Hemoglobin (Bld) [Mass/Vol] 13.3 g/dL Normal 11.8-15.4 [facility] Comment on above: Performed By: #### B MP, CBC #### [address] Lymphocytes (Bld) [#/Vol] 1.4 10*3/uL Normal 1.00-4.8 [facility] Comment on above: Performed By: #### B MP, CBC #### [address] Lymphocytes/100 WBC (Bld) 15.2 % Normal . [facility] Comment on above: Performed By: #### B MP, CBC #### [address] MCH (RBC) [Entitic mass] 29.3 pg Normal 24.7-34.3 [facility] Comment on above: Performed By: #### B MP, CBC #### [address] MCV (RBC) [Entitic vol] 88.8 fL Normal 80-100 [facility] Comment on above: Performed By: #### B MP, CBC #### [address] Mean Corpuscular HGB Conc 33.0 g/dL Normal 32.0-35.0 [facility] Comment on above: Performed By: #### B MP, CBC #### [address] Monocytes (Bld) [#/Vol] 0.7 10*3/uL Normal 0.0-0.8 [facility] Comment on above: Performed By: #### B MP, CBC #### [facility] [address] [place] [address] [place] Monocytes/100 WBC (Bld) 7.2 % Normal . [facility] Comment on above: Performed By: #### B MP, CBC #### [facility] [address] [place] [address] [place] Neutrophils (Bld) [#/Vol] 7.0 10*3/uL Normal 1.8-7.7 [facility] Comment on above: Performed By: #### B MP, CBC #### [facility] [address] Neutrophils/100 WBC (Bld) 76.1 % Normal . [facility] Comment on above: Performed By: #### B MP, CBC #### [facility] [address] NRBC% 0.0 /100{WBC} Normal 0-0.5 [facility] Comment on above: Performed By: #### B MP, CBC #### [facility] [address] [place] [address] [place] Platelet mean volume (Bld) [Entitic vol] 9.5 fL Normal 6.3-10.7 [facility] Comment on above: Performed By: #### B MP, CBC #### [facility] [address] [place] [address] [place] Platelets (Bld) [#/Vol] 183 10*3/uL Normal 150-450 [facility] Comment on above: Performed By: #### B MP, CBC #### [facility] [address] [place] [address] [place] RBC (Bld) [#/Vol] 4.55 10*6/uL Normal 3.60-5.00 [facility] Comment on above: Performed By: #### B MP, CBC #### [facility] [address] [place] [address] [place] WBC (Bld) [#/Vol] 9.2 10*3/uL Normal 3.8-11.6 [facility] Comment on above: Performed By: #### B MP, CBC #### [address] Comprehensive Metabolic Pane daniele 10-17-2024 Albumin [Mass/Vol] 3.5 g/dL Normal 3.5-5.7 [facility] Comment on above: Performed By: #### B MP, CBC #### [address] Albumin/Globulin [Mass ratio] 0.9 {ratio} Normal [facility] Comment on above: Performed By: #### B MP, CBC #### [address] ALP [Catalytic activity/Vol] 99 U/L Normal 34-104 [facility] Comment on above: Performed By: #### B MP, CBC #### [address] ALT [Catalytic activity/Vol] 42 U/L Normal 7-52 [facility] Comment on above: Performed By: #### B MP, CBC #### [address] Anion gap [Moles/Vol] 14.7 mmol/L Normal 6.0-15.0 [facility] Comment on above: Performed By: #### B MP, CBC #### [address] AST [Catalytic activity/Vol] 35 U/L Normal 13-39 [facility] Comment on above: Performed By: #### B MP, CBC #### [address] Bilirubin [Mass/Vol] 0.6 mg/dL Normal 0.3-1.0 [facility] Comment on above: Performed By: #### B MP, CBC #### [address] Calcium [Mass/Vol] 9.6 mg/dL Normal 8.6-10.3 [facility] Comment on above: Performed By: #### B MP, CBC #### [facility] [address] [place] [address] [place] Chloride [Moles/Vol] 99 mmol/L Normal 98-107 [facility] Comment on above: Performed By: #### B MP, CBC #### [address] CO2 [Moles/Vol] 25.3 mmol/L Normal 21.0-31.0 [facility] Comment on above: Performed By: #### B MP, CBC #### [address] Creatinine [Mass/Vol] 1.99 mg/dL High 0.60-1.20 [facility] Comment on above: Performed By: #### B MP, CBC #### [address] Creatinine Clr Calc Pharmacy 29.98 Normal [facility] Comment on above: Performed By: #### B MP, CBC #### [address] Estimated GFR 25.252 mL/Min Normal [facility] Comment on above: Performed By: #### B MP, CBC #### [address] Globulin (S) [Mass/Vol] 3.9 g/dL Normal [facility] Comment on above: Performed By: #### B MP, CBC #### [address] Glucose [Mass/Vol] 228 mg/dL High 70-100 [facility] Comment on above: Result Comment: [place] Glucose Reference Range is dependent on time and content of last meal. Glucose of more than 200 mg/dL in a nonstressed, ambulatory subject supports the diagnosis of Diabetes Mellitus. ADA recommended reference range Performed By: #### B MP, CBC #### [address] Potassium [Moles/Vol] 5.0 mmol/L Normal 3.5-5.1 [facility] Comment on above: Performed By: #### B MP, CBC #### [facility] [address] Protein [Mass/Vol] 7.4 g/dL Normal 6.4-8.9 [facility] Comment on above: Performed By: #### B MP, CBC #### [facility] [address] Sodium [Moles/Vol] 134 mmol/L Low 136-145 [facility] Comment on above: Performed By: #### B MP, CBC #### [facility] [address] Urea nitrogen [Mass/Vol] 67 mg/dL High 7-25 [facility] Comment on above: Performed By: #### B MP, CBC #### [facility] [address] [place] [address] Eosinophils Auto (Bld) [#/Vo l]Ordered By: Mauri Chavira on 10-17-2024 Eosinophils (Bld) [#/Vol] Automated eosinophil count 0.0-0.45 [facility] Eosinophils/100 WBC Auto (Bl d)Ordered By: Mauri Chavira on 10-17-2024 Eosinophils/100 WBC (Bld) Automated eosinophil % . [facility] Erythrocyte distribution wid th Auto (RBC) [Ratio]Ordered By: Mauri Chavira on 10-17-2024 Erythrocyte distribution width (RBC) [Ratio] Erythrocyte distribution width [Ratio] by Automated count High 11.9-15.3 [facility] Globulin Calc (S) [Mass/Vol] Ordered By: Mauri Chavira on 10-17-2024 Globulin (S) [Mass/Vol] Serum globulin measurement by calculation (mass/volume) [facility] Glucose Poct Glucometerson 1 12-18-2023 Glucose [Mass/Vol] 245 mg/dL Normal [facility] Comment on above: Result Comment: [place] Glucose Reference Range is dependent on time and content of last meal. Glucose of more than 200 mg/dL in a nonstressed, ambulatory subject supports the diagnosis of Diabetes Mellitus. PERFORMED BY: [place] [address] PATHOLOGIST DELICATESSEN CLERK MAY HYDE M.D. Performed By: #### B MP, CBC #### [address] Glucose [Mass/Vol] 335 mg/dL Normal [facility] Comment on above: Result Comment: [place] [facility] Glucose Reference Range is dependent on time and content of last meal. Glucose of more than 200 mg/dL in a nonstressed, ambulatory subject supports the diagnosis of Diabetes Mellitus. PERFORMED BY: [place] [address] PATHOLOGIST DELICATESSEN CLERK MAY HYDE M.D. Performed By: #### B TICKET MAKER, HS TROP, PT, CBC, BMP #### [address] Glucose [Mass/Vol] 324 mg/dL Normal [facility] Comment on above: Result Comment: [place] [facility] Glucose Reference Range is dependent on time and content of last meal. Glucose of more than 200 mg/dL in a nonstressed, ambulatory subject supports the diagnosis of Diabetes Mellitus. PERFORMED BY: [place] [address] PATHOLOGIST DELICATESSEN CLERK MAY HYDE M.D. Performed By: #### B TICKET MAKER, HS TROP, PT, CBC, BMP #### [place] [address] [place] Glucose [Mass/Vol] 253 mg/dL Normal [facility] Comment on above: Result Comment: [place] [facility] Glucose Reference Range is dependent on time and content of last meal. Glucose of more than 200 mg/dL in a nonstressed, ambulatory subject supports the diagnosis of Diabetes Mellitus. PERFORMED BY: [place] [address] PATHOLOGIST DELICATESSEN CLERK MAY HYDE M.D. Performed By: #### B TICKET MAKER, HS TROP, PT, CBC, BMP #### [place] [address] [facility] Hematocrit Auto (Bld) [Volum e fraction]Ordered By: Mauri Chavira on 10-17-2024 Hematocrit (Bld) [Volume fraction] Hematocrit [Volume Fraction] of Blood by Automated count 34.0-46.4 [facility] Hemoglobin [Mass/volume] in BloodOrdered By: Mauri Chavira on 10-17-2024 Hemoglobin (Bld) [Mass/Vol] Hemoglobin [Mass/volume] in Blood 11.8-15.4 [facility] Leukocytes [#/volume] correc gali for nucleated erythrocytes in Blood by Automated counOrdered By: Mauri Chavira on 10-17-2024 WBC corrected for nucl RBC Auto (Bld) [#/Vol] Leukocytes [#/volume] corrected for nucleated erythrocytes in Blood by Automated coun 3.8-11.6 [facility] Lymphocytes Auto (Bld) [#/Vo l]Ordered By: Mauri Chavira on 10-17-2024 Lymphocytes (Bld) [#/Vol] Lymphocytes [#/volume] in Blood by Automated count 1.00-4.8 [facility] Lymphocytes/100 WBC Auto (Bl d)Ordered By: Mauri Chavira on 10-17-2024 Lymphocytes/100 WBC (Bld) Lymphocytes/100 leukocytes in Blood by Automated count . [facility] MCH Auto (RBC) [Entitic mass ]Ordered By: Mauri Chavira on 10-17-2024 MCH (RBC) [Entitic mass] MCH [Entitic mass] by Automated count 24.7-34.3 [facility] MCHC Auto (RBC) [Mass/Vol]Or dered By: Mauri Chavira on 10-17-2024 MCHC (RBC) [Mass/Vol] MCHC [Mass/volume] by Automated count 32.0-35.0 [facility] MCV Auto (RBC) [Entitic vol] Ordered By: Mauri Chavira on 10-17-2024 MCV (RBC) [Entitic vol] MCV [Entitic volume] by Automated count 80-100 [facility] Magnesiumon 10-17-2024 Magnesium [Mass/Vol] 1.6 mg/dL Low 1.9-2.7 [facility] Comment on above: Result Comment: PERF ORMED BY: [facility] [address] [facility] [place] [address] PATHOLOGIST DELICATESSEN CLERK MAY HYDE M.D. Performed By: #### B MP, CBC #### [facility] [address] Monocytes Auto (Bld) [#/Vol] Ordered By: Mauri Chavira on 10-17-2024 Monocytes (Bld) [#/Vol] Automated blood monocyte count 0.0-0.8 [facility] Monocytes/100 WBC Auto (Bld) Ordered By: Mauri Chavira on 10-17-2024 Monocytes/100 WBC (Bld) Automated monocyte % . [facility] Neutrophils Auto (Bld) [#/Vo l]Ordered By: Mauri Chavira on 10-17-2024 Neutrophils (Bld) [#/Vol] Neutrophils [#/volume] in Blood by Automated count 1.8-7.7 [facility] Neutrophils/100 WBC Auto (Bl d)Ordered By: Mauri Chavira on 10-17-2024 Neutrophils/100 WBC (Bld) Automated neutrophil % . [facility] Nucleated erythrocytes [Pres ence] in Blood by Automated countOrdered By: Mauri Chavira on 10-17-2024 Nucleated RBC Auto Ql (Bld) Nucleated erythrocytes [Presence] in Blood by Automated count 0-0.5 [facility] Platelet mean volume Auto (B ld) [Entitic vol]Ordered By: Mauri Chavira on 10-17-2024 Platelet mean volume (Bld) [Entitic vol] Platelet mean volume [Entitic volume] in Blood by Automated count 6.3-10.7 [facility] Platelets Auto (Bld) [#/Vol] Ordered By: Mauri Chavira on 10-17-2024 Platelets (Bld) [#/Vol] Platelets [#/volume] in Blood by Automated count 150-450 [facility] Protein [Mass/volume] in Ser um or PlasmaOrdered By: Mauri Chavira on 10-17-2024 Protein [Mass/Vol] Protein [Mass/volume ] in Serum or Plasma 6.4-8.9 [facility] RBC Auto (Bld) [#/Vol]Ordere d By: Mauri Chavira on 10-17-2024 RBC (Bld) [#/Vol] Erythrocytes [#/volu me] in Blood by Automated count 3.60-5.00 [facility] Serum or plasma albumin/glob ulin mass ratioOrdered By: Mauri Chavira on 10-17-2024 Albumin/Globulin [Mass ratio] Serum or plasma albumin/globulin mass ratio [facility] WBC Auto (Bld) [#/Vol]Ordere d By: Mauri Chavira on 10-17-2024 WBC (Bld) [#/Vol] Leukocytes [#/volume ] in Blood by Automated count 3.8-11.6 [facility] B-Type Natriuretic Peptideon 10-16-2024 Natriuretic peptide B (Bld) [Mass/Vol] 547.0 pg/mL High 5-100 [facility] Comment on above: Result Comment: PERF ORMED BY: [place] [address] PATHOLOGIST DELICATESSEN CLERK MAY HYDE M.D. Performed By: #### B MP, CBC #### [address] Basic Metabolic Panelon 12-0 Anion gap [Moles/Vol] 18.1 mmol/L High 6.0-15.0 Th e [facility] Comment on above: Performed By: #### B TICKET MAKER, HS TROP, PT, CBC, BMP #### [address] Calcium [Mass/Vol] 9.7 mg/dL Significant change down 8.6-10.3 [facility] Comment on above: Performed By: #### B TICKET MAKER, HS TROP, PT, CBC, BMP #### [address] Chloride [Moles/Vol] 100 mmol/L Normal 98-107 [facility] Comment on above: Performed By: #### B TICKET MAKER, HS TROP, PT, CBC, BMP #### [facility] [address] CO2 [Moles/Vol] 23.3 mmol/L Normal 21.0-31.0 [facility] Comment on above: Performed By: #### B TICKET MAKER, HS TROP, PT, CBC, BMP #### [facility] [address] Creatinine [Mass/Vol] 2.14 mg/dL High 0.60-1.20 [facility] Comment on above: Performed By: #### B TICKET MAKER, HS TROP, PT, CBC, BMP #### [facility] [address] Creatinine Clr Calc Pharmacy 27.88 Normal [facility] Comment on above: Result Comment: PERF ORMED BY: [place] [address] PATHOLOGIST DELICATESSEN CLERK MAY HYDE M.D. Performed By: #### B TICKET MAKER, HS TROP, PT, CBC, BMP #### [address] Estimated GFR 23.142 mL/Min Normal [facility] Comment on above: Performed By: #### B TICKET MAKER, HS TROP, PT, CBC, BMP #### [facility] [address] Glucose [Mass/Vol] 301 mg/dL High 70-100 [facility] Comment on above: Result Comment: [place] Glucose Reference Range is dependent on time and content of last meal. Glucose of more than 200 mg/dL in a nonstressed, ambulatory subject supports the diagnosis of Diabetes Mellitus. ADA recommended reference range Performed By: #### B TICKET MAKER, HS TROP, PT, CBC, BMP #### [address] Potassium [Moles/Vol] 6.4 mmol/L Off scale high 3.5-5.1 [facility] Comment on above: Result Comment: Resu lts called at 1909 on 10/16/24 Critical Result Called to and read back by: ISMA AVILA/RENETTA at: 10/16/2024 19:04:24 by:[id number] Performed By: #### B TICKET MAKER, HS TROP, PT, CBC, BMP #### [facility] [address] [place] [address] [place] Sodium [Moles/Vol] 135 mmol/L Low 136-145 [facility] Comment on above: Performed By: #### B TICKET MAKER, HS TROP, PT, CBC, BMP #### [place] [address] [place] Urea nitrogen [Mass/Vol] 74 mg/dL High 7-25 [facility] Comment on above: Performed By: #### B TICKET MAKER, HS TROP, PT, CBC, BMP #### [address] Anion gap [Moles/Vol] 13.8 mmol/L Normal 6.0-15.0 [facility] Comment on above: Performed By: #### B MP, CBC #### [address] Calcium [Mass/Vol] 8.1 mg/dL Low 8.6-10.3 [facility] Comment on above: Performed By: #### B MP, CBC #### [place] [address] [place] Chloride [Moles/Vol] 104 mmol/L Normal 98-107 [facility] Comment on above: Performed By: #### B MP, CBC #### [place] [address] [place] CO2 [Moles/Vol] 21.5 mmol/L Normal 21.0-31.0 [facility] Comment on above: Performed By: #### B MP, CBC #### [place] [address] [place] Creatinine [Mass/Vol] 2.25 mg/dL High 0.60-1.20 [facility] Comment on above: Performed By: #### B MP, CBC #### [place] [address] [place] Creatinine Clr Calc Pharmacy 5.50 Normal [facility] Comment on above: Performed By: #### B MP, CBC #### [facility] [address] Estimated GFR 21.792 mL/Min Normal [facility] [facility] Comment on above: Performed By: #### B MP, CBC #### [facility] [address] Glucose [Mass/Vol] 388 mg/dL High 70-100 [facility] Comment on above: Result Comment: [place] Glucose Reference Range is dependent on time and content of last meal. Glucose of more than 200 mg/dL in a nonstressed, ambulatory subject supports the diagnosis of Diabetes Mellitus. ADA recommended reference range Performed By: #### B MP, CBC #### [address] Potassium [Moles/Vol] 6.3 mmol/L Off scale high 3.5-5.1 [facility] Comment on above: Result Comment: Crit ical Result Called to and read back by: LYNN KLINE at: 10/16/2024 14:01:43 by:[id number] Performed By: #### B MP, CBC #### [place] [address] [place] Sodium [Moles/Vol] 133 mmol/L Low 136-145 [facility] Comment on above: Performed By: #### B MP, CBC #### [place] [address] [place] Urea nitrogen [Mass/Vol] 73 mg/dL High 7-25 [facility] Comment on above: Performed By: #### B MP, CBC #### [facility] [address] Blood carbon dioxide, total measurement by calculation (moles/volume)Ordered By: Kavin Escobar on 10-16-2024 CO2 Calc (Bld) [Moles/Vol] Blood carbon dioxide, total measurement by calculation (moles/volume) Low 23-29 [facility] Chloride (Bld) [Moles/Vol]Or dered By: Kavin Escobar on 10-16-2024 Chloride [Moles/Vol] Whole blood chlorid e measurement 98-109 [facility] Complete Blood Count Auto Di ffon 10-16-2024 Basophils (Bld) [#/Vol] 0.1 10*3/uL Normal 0.0-0.2 [facility] Comment on above: Result Comment: PERF ORMED BY: [place] [address] PATHOLOGIST DELICATESSEN CLERK MAY HYDE M.D. Performed By: #### B MP, CBC #### [address] Basophils/100 WBC (Bld) 0.7 % Normal . [facility] Comment on above: Performed By: #### B MP, CBC #### [address] Eosinophils (Bld) [#/Vol] 0.1 10*3/uL Normal 0.0-0.45 [facility] Comment on above: Performed By: #### B MP, CBC #### [address] Eosinophils/100 WBC (Bld) 0.6 % Normal . [facility] Comment on above: Performed By: #### B MP, CBC #### [address] Erythrocyte distribution width (RBC) [Ratio] 15.2 % Normal 11.9-15.3 [facility] Comment on above: Performed By: #### B MP, CBC #### [address] Hematocrit (Bld) [Volume fraction] 35.5 % Normal 34.0-46.4 [facility] Comment on above: Performed By: #### B MP, CBC #### [address] Hemoglobin (Bld) [Mass/Vol] 11.6 g/dL Low 11.8-15.4 [facility] Comment on above: Performed By: #### B MP, CBC #### [place] [address] Lymphocytes (Bld) [#/Vol] 1.2 10*3/uL Normal 1.00-4.8 [facility] Comment on above: Performed By: #### B MP, CBC #### [address] Lymphocytes/100 WBC (Bld) 12.5 % Normal . [facility] Comment on above: Performed By: #### B MP, CBC #### [address] MCH (RBC) [Entitic mass] 29.0 pg Normal 24.7-34.3 [facility] Comment on above: Performed By: #### B MP, CBC #### [address] MCV (RBC) [Entitic vol] 89.1 fL Normal 80-100 [facility] Comment on above: Performed By: #### B MP, CBC #### [address] Mean Corpuscular HGB Conc 32.6 g/dL Normal 32.0-35.0 [facility] Comment on above: Performed By: #### B MP, CBC #### [address] Monocytes (Bld) [#/Vol] 0.7 10*3/uL Normal 0.0-0.8 [facility] Comment on above: Performed By: #### B MP, CBC #### [address] Monocytes/100 WBC (Bld) 18.11 % Normal 0.00-20.00 [facility] Comment on above: Performed By: #### B MP, CBC #### [address] Monocytes/100 WBC (Bld) 6.8 % Normal . [facility] Comment on above: Performed By: #### B MP, CBC #### [place] [address] [place] Neutrophils (Bld) [#/Vol] 8.0 10*3/uL High 1.8-7.7 [facility] Comment on above: Performed By: #### B MP, CBC #### [address] Neutrophils/100 WBC (Bld) 79.4 % Normal . [facility] Comment on above: Performed By: #### B MP, CBC #### [address] NRBC% 0.1 /100{WBC} Normal 0-0.5 The [facility] Comment on above: Performed By: #### B MP, CBC #### [address] Platelet mean volume (Bld) [Entitic vol] 9.7 fL Normal 6.3-10.7 The [facility] Comment on above: Performed By: #### B MP, CBC #### [address] Platelets (Bld) [#/Vol] 181 10*3/uL Normal 150-450 [facility] Comment on above: Performed By: #### B MP, CBC #### [address] RBC (Bld) [#/Vol] 3.98 10*6/uL Normal 3.60-5.00 The [facility] Comment on above: Performed By: #### B MP, CBC #### [address] WBC (Bld) [#/Vol] 10.0 10*3/uL Normal 3.8-11.6 [facility] Comment on above: Performed By: #### B MP, CBC #### [address] Creatine Kinaseon 10-16-2024 CK [Catalytic activity/Vol] 37 U/L Normal 30-223 [facility] Comment on above: Performed By: #### B MP, CBC #### [place] [id number] [place] Creatine kinase [Enzymatic a ctivity/volume] in Serum or PlasmaOrdered By: Jorge Luis Zavala on 10-16-2024 CK [Catalytic activity/Vol] Creatine kinase [Enzymatic activity/volume] in Serum or Plasma [facility] Creatinine (Bld) [Mass/Vol]O rdered By: Kavin Escobar on 10-16-2024 Creatinine [Mass/Vol] Whole blood creati nine measurement High 0.6-1.3 [facility] Comment on above: ER/ESD physician is notified/shown all ISTAT results.Critical values may be confirmed by laboratory testing ifdeemed necessary by ER attending doctor. ECG 12 lead ECGon 10-16-2024 ECG 12 lead ECG [facility] [address] Electrocardiograph Report Signed Patient: Joe Call MR#: [id number] 0 : 1945 Acct:[id number] Age/Sex: 79 / F ADM Date: 10/16/24 Loc: Room: [address] [place] [address] Type: DIS IN Attending Dr: Kavin Escobar [...] Moreno MD 1 12/24/23 1516 Normal [facility] ECG 12 lead ECG [facility] Main [place] [id number] Electrocardiograph Report Signed Patient: Joe Call MR#: [id number] 0 : 1945 Acct:[id number] Age/Sex: 79 / F ADM Date: 10/16/24 Loc: Room: [address] [place] [address] Type: ADM IN Attending Dr: Mauri Chavira [...] Jorge Luis Zavala DO 1925 Normal [facility] ECG 12 lead ECG [facility] [address] Electrocardiograph Report Signed Patient: Joe Call MR#: [id number] 0 : 1945 Acct:[id number] Age/Sex: 79 / F ADM Date: 10/16/24 Loc: Room: [address] [place] [address] Type: ADM IN Attending Dr: Mauri Chavira [...] Jorge Luis Zavala DO 1925 Normal [facility] Glucose Glucometer (BldC) [M ass/Vol]Ordered By: Kavin Escobar on 10-16-2024 Glucose [Mass/Vol] Capillary blood gluc ose measurement by glucometer (mass/volume) High 70-105 [facility] Glucose Poct Glucometerson 1 12-17-2023 Glucose [Mass/Vol] 266 mg/dL Normal [facility] Comment on above: Result Comment: [place] Glucose Reference Range is dependent on time and content of last meal. Glucose of more than 200 mg/dL in a nonstressed, ambulatory subject supports the diagnosis of Diabetes Mellitus. PERFORMED BY: [place] [address] PATHOLOGIST DELICATESSEN CLERK MAY HYDE M.D. Performed By: #### B MP, CBC #### [address] Hemoglobin Calc (Bld) [Mass/ Vol]Ordered By: Kavin Escobar on 10-16-2024 Hemoglobin (Bld) [Mass/Vol] Blood hemoglobin measurement by calculation (mass/volume) 12.0-17.0 [facility] INR in Platelet poor plasma by Coagulation assayOrdered By: Joreg Luis Zavala on 10-16-2024 INR Coag (PPP) [Relative time] INR in Platelet poor plasma by Coagulation assay [facility] Comment on above: INR Therapeutic Rang e [...] 3 - 4.5 ISTAT ER Chem8+ Panelon 12-0 Chloride [Moles/Vol] 104.0 mmol/L Normal 98-109 Th e [facility] Comment on above: Performed By: #### C MP #### [address] CO2 [Moles/Vol] 22 mmol/L Low 23-29 [facility] Comment on above: Performed By: #### C MP #### [address] Creatinine [Mass/Vol] 2.3 mg/dL High 0.6-1.3 [facility] Comment on above: Result Comment: ER/E SD physician is notified/shown all ISTAT results. Critical values may be confirmed by laboratory testing if deemed necessary by ER attending doctor. Performed By: #### C MP #### [address] Glucose [Mass/Vol] 390 mg/dL High 70-105 [facility] Comment on above: Result Comment: PERF ORMED BY: [place] [address] PATHOLOGIST DELICATESSEN CLERK MAY HYDE M.D. Performed By: #### C MP #### [address] Hemoglobin (Bld) [Mass/Vol] 12.2 g/dL Normal 12.0-17.0 [facility] Comment on above: Performed By: #### C MP #### [place] [address] [place] ISTAT Ionized Calcium 1.11 mol/L Low 1.12-1.32 [facility] Comment on above: Performed By: #### C MP #### [address] [place] [address] [place] Potassium [Moles/Vol] 6.4 mmol/L Off scale high 3.5-4.9 [facility] Comment on above: Performed By: #### C MP #### [address] Sodium [Moles/Vol] 134 mmol/L Low 138-146 [facility] Comment on above: Performed By: #### C MP #### [address] Urea nitrogen [Mass/Vol] 69 mg/dL High 8-26 [facility] Comment on above: Performed By: #### C MP #### [address] ISTAT ER Chem8+ PanelOrdered By: Kavin Escobar on 10-16-2024 Hematocrit (Bld) [Volume fraction] 36.0 % Low 38.0-51.0 [facility] Comment on above: Performed By: #### C MP #### [address] Magnesiumon 10-16-2024 Magnesium [Mass/Vol] 1.4 mg/dL Low 1.9-2.7 [facility] Comment on above: Result Comment: PERF ORMED BY: [place] [address] PATHOLOGIST DELICATESSEN CLERK MAY HYDE M.D. Performed By: #### B MP, CBC #### [address] Monocyte distribution width [Entitic volume] in Blood by AutomatedOrdered By: Jorge Luis Zavala on 10-16-2024 Monocyte distribution width Auto (Bld) [Entitic vol] Monocyte distribution width [Entitic volume] in Blood by Automated 0.00-20.00 [facility] Natriuretic peptide B [Mass/ Vol]Ordered By: Jorge Luis Zavala on 10-16-2024 Natriuretic peptide B (Bld) [Mass/Vol] BNP ser/plas High 5-100 [facility] Potassium (Bld) [Moles/Vol]O rdered By: Kavin Escobar on 10-16-2024 Potassium [Moles/Vol] Whole blood potass ium measurement Critically high 3.5-4.9 [facility] Prothrombin Time INRon 10-16 INR Coag (PPP) [Relative time] 2.6 {INR} Normal [facility] Comment on above: Result Comment: [...] heart valves: 3 - 4.5 PERFORMED BY: [place] [address] PATHOLOGIST DELICATESSEN CLERK MAY HYDE M.D. Performed By: #### B MP, CBC #### [facility] [address] [place] [address] PT Coag (PPP) [Time] 28.9 s High 9.0-12.9 [facility] Comment on above: Result Comment: A he matocrit value greater than 55% may lead to inaccurate results in coagulation testing. Patients having hematocrit values >55% require a special collection tube for coagulation studies. Please contact the laboratory at [phone] for redraw instructions. Performed By: #### B MP, CBC #### [facility] [address] [place] [address] Prothrombin time (PT)Ordered By: Jorge Luis Zavala on 10-16-2024 PT Coag (PPP) [Time] Prothrombin time (PT) High 9.0- 12.9 [facility] Comment on above: A hematocrit value g reater than 55% may lead to inaccurate results in coagulation testing. Patients having hematocrit values >55% require a special collection tube for coagulation studies. Please contact the laboratory at [phone] for redraw instructions. Sodium (Bld) [Moles/Vol]Orde red By: Kavin Escobar on 10-16-2024 Sodium [Moles/Vol] Whole blood sodium measurement Low 138-146 [facility] Troponin I High Sensitivityo n 10-16-2024 Troponin I High Sensitivity 9.9 pg/mL Normal 0.0-15.0 [facility] Comment on above: Result Comment: PERF ORMED BY: [place] [address] PATHOLOGIST DELICATESSEN CLERK MAY HYDE M.D. Performed By: #### B MP, CBC #### [address] Troponin I.cardiac [Mass/vol ume] in Serum or Plasma by Detection limit <= 0.01 ng/Ordered By: Jorge Luis Zavala on 10-16-2024 Troponin I.cardiac DL <= 0.01 ng/mL [Mass/Vol] Troponin I.cardiac [Mass/volume] in Serum or Plasma by Detection limit <= 0.01 ng/ 0.0-15.0 [facility] Urea nitrogen (Bld) [Mass/Vo l]Ordered By: Kavin Escobar on 10-16-2024 Urea nitrogen [Mass/Vol] Blood urea nitrogen (BUN) measurement in whole blood (mass/volume) High 8-26 [facility] Whole blood ionized calcium measurement (moles/volume)Ordered By: Kavin Escobar on 10-16-2024 Calcium.ionized (Bld) [Moles/Vol] Whole blood ionized calcium measurement (moles/volume) Low 1.12-1.32 [facility] XR chest 1V portableon 10-16 XR chest 1V portable [facility] [place] [address] [place] [address] XRay Report Signed Patient: Joe Call MR#: [id number] 0 : 1945 Acct:[id number] Age/Sex: 79 / F ADM Date: 10/16/24 Loc: ER Room: Type: [facility] ER Attending Dr: Copies to: [...] Jarred Randolph M.D.10/16/2024 2:10 PM Dictation Location: [facility]-23 Transcribed By: [facility] 10/16/24 1410 Dictated By: Jarred Randolph DO 10/16/24 1407 Signed By: 10/16/24 1410 Normal [facility] 37on 10-08-2024 37 *Cut lisinopril in h rae to 10mg daily. *Follow-up labs in 2 weeks. *Limit fluid intake to 64oz or 2 liters a day. Normal [facility] Office Visiton 10-08-2024 Follow-up visit [id number] Joe Call 1945 F Date Provider Department Center 10/08/2024 [facility] Family History Problem Relation Age of Onset Coronary artery disease Other Diabetes Other Polycystic kidney disease Other Family Status - Relation Status Age at Other Level of Service:76025 [place] OFFICE/OUTPATIENT ESTABLISHED MOD MDM 30 MIN Reason for Visit and Comments: Congestive Heart Failure [127] Hypertension [974230] Atrial Fibrillation [80] Normal [facility] Estimated glomerular filtrat ion rate (GFR) non- Americanon 09-29-2024 GFR/1.73 sq M.predicted among non-blacks MDRD (S/P/Bld) [Vol rate/Area] Estimated glomerular filtration rate (GFR) non- Low >=60 mL/min/1.73 m 2 [facility] Laboratory - Chemistry and C hemistry - challengeon 09-29-2024 Calcium [Mass/Vol] 8.8 mg/dL 8.5-10.1 [facility] Chloride [Moles/Vol] 102 mmol/L 98-107 [facility] CO2 [Moles/Vol] 24.9 mmol/L 21.0-32.0 [facility] Creatinine [Mass/Vol] 1.92 mg/dL High 0.55-1.02 [facility] GFR/1.73 sq M.predicted MDRD (S/P/Bld) [Vol rate/Area] 31 mL/min/{1.73_m2} Low >=60 mL/min/1.73 m 2 [facility] Glucose [Mass/Vol] 387 mg/dL High 74-106 [facility] Potassium [Moles/Vol] 5.0 mmol/L 3.5-5.1 [facility] Sodium [Moles/Vol] 136 mmol/L 136-145 [facility] Urea nitrogen [Mass/Vol] 64.0 mg/dL High 7.0-18.0 [facility] Urea nitrogen/Creatinine [Mass ratio] 33.3 mg/mg [facility] Serum or plasma anion gap de terminationon 09-29-2024 Anion gap [Moles/Vol] Serum or plasma an ion gap determination [facility] 37on 09-03-2024 37 *Your kidney functio n [...] [facility] 09-03-2024 Follow-up visit [id number] Joe Call 1945 F Date Provider Department Center 09/03/2024 Y[facility] Family History Problem Relation Age of Onset Coronary artery disease Other Diabetes Other Polycystic kidney disease Other Family Status - Relation Status Age at Other Level of Service:62686 [place] OFFICE/OUTPATIENT ESTABLISHED MOD MDM 30 MIN Reason for Visit and Comments: Congestive Heart Failure [127] Atrial Fibrillation [80] Hypertension [693821] Normal [facility] Office Visiton 08-20-2024 Follow-up visit [id number] BassemJoe [place] 1945 F Date Provider Department Center 08/20/2024 [facility] Family History Problem Relation Age of Onset Coronary artery disease Other Diabetes Other Polycystic kidney disease Other Family Status - Relation Status Age at Other Level of Service:81947 [place] OFFICE/OUTPATIENT ESTABLISHED MOD MDM 30 MIN Reason for Visit and Comments: Congestive Heart Failure [127] Normal [facility] Basophils Auto (Bld) [#/Vol] on 07-25-2024 Basophils (Bld) [#/Vol] 0.1 10 3/uL 0.0-0.1 [facility] Basophils/100 WBC Auto (Bld) on 07-25-2024 Basophils/100 WBC (Bld) 1.2 % 0.2-2.0 [facility] Eosinophils/100 WBC Auto (Bl d)on 07-25-2024 Eosinophils/100 WBC (Bld) 1.6 % 0.9-7.0 [facility] Erythrocyte distribution wid th Auto (RBC) [Ratio]on 07-25-2024 Erythrocyte distribution width (RBC) [Ratio] 13.7 % 11.0-15.0 [facility] Estimated glomerular filtrat ion rate (GFR) non- Americanon 07-25-2024 GFR/1.73 sq M.predicted among non-blacks MDRD (S/P/Bld) [Vol rate/Area] 47 mL/min/{1.73_m2} Low >=60 [facility] Globulin Calc (S) [Mass/Vol] on 07-25-2024 Globulin (S) [Mass/Vol] 4.7 g/dL [facility] Hematocrit Auto (Bld) [Volum e fraction]on 07-25-2024 Hematocrit (Bld) [Volume fraction] 33.6 % Low 36.0-48.0 [facility] Hemoglobin [Mass/volume] in Bloodon 07-25-2024 Hemoglobin (Bld) [Mass/Vol] 11.0 g/dL Low 12.0-16.0 [facility] Laboratory - Chemistry and C hemistry - challengeon 07-25-2024 Albumin [Mass/Vol] 2.3 g/dL Low 3.4-5.0 [facility] ALP [Catalytic activity/Vol] 101 U/L 46-116 [facility] ALT [Catalytic activity/Vol] 14 U/L 14-59 [facility] AST [Catalytic activity/Vol] 13 U/L Low 15-37 [facility] Bilirubin [Mass/Vol] 0.8 mg/dL 0.2-1.0 [facility] Calcium [Mass/Vol] 8.6 mg/dL 8.5-10.1 [facility] Chloride [Moles/Vol] 102 mmol/L 98-107 [facility] CO2 [Moles/Vol] 27.8 mmol/L 21.0-32.0 [facility] Creatinine [Mass/Vol] 1.13 mg/dL High 0.55-1.02 [facility] GFR/1.73 sq M.predicted MDRD (S/P/Bld) [Vol rate/Area] 56 mL/min/{1.73_m2} Low >=60 [facility] Glucose [Mass/Vol] 228 mg/dL High 74-106 [facility] Potassium [Moles/Vol] 3.7 mmol/L 3.5-5.1 [facility] Protein [Mass/Vol] 7.0 g/dL 6.4-8.2 [facility] Sodium [Moles/Vol] 140 mmol/L 136-145 [facility] Urea nitrogen [Mass/Vol] 26.0 mg/dL High 7.0-18.0 [facility] Urea nitrogen/Creatinine [Mass ratio] 23.0 mg/mg [facility] Laboratory - Hematology and Cell countson 07-25-2024 Immature granulocytes/100 WBC (Bld) 0.2 % 0.0-0.5 [facility] Leukocytes [#/volume] correc gali for nucleated erythrocytes in Blood by Automated counon 07-25-2024 WBC corrected for nucl RBC Auto (Bld) [#/Vol] 8.7 10 3/uL 4.0-11.0 [facility] Lymphocytes Auto (Bld) [#/Vo l]on 07-25-2024 Lymphocytes (Bld) [#/Vol] 1.4 10 3/uL 1.2-3.8 [facility] Lymphocytes/100 WBC Auto (Bl d)on 07-25-2024 Lymphocytes/100 WBC (Bld) 15.9 % Low 20.5-60.0 [facility] MCH Auto (RBC) [Entitic mass ]on 07-25-2024 MCH (RBC) [Entitic mass] 29.7 pg 26.7-34.0 [facility] MCHC Auto (RBC) [Mass/Vol]on 07-25-2024 MCHC (RBC) [Mass/Vol] 32.7 g/dL 29.9-35.2 [facility] MCV Auto (RBC) [Entitic vol] on 07-25-2024 MCV (RBC) [Entitic vol] 90.8 fL 81.0-99.0 [facility] Monocytes Auto (Bld) [#/Vol] on 07-25-2024 Monocytes (Bld) [#/Vol] 0.7 10 3/uL 0.3-0.8 [facility] Monocytes/100 WBC Auto (Bld) on 07-25-2024 Monocytes/100 WBC (Bld) 8.2 % 1.7-12.0 [facility] Neutrophils Auto (Bld) [#/Vo l]on 07-25-2024 Neutrophils (Bld) [#/Vol] 6.3 10 3/uL 1.4-6.5 [facility] Neutrophils/100 WBC Auto (Bl d)on 07-25-2024 Neutrophils/100 WBC (Bld) 72.9 % 43.0-75.0 [facility] No Panel Informationon 07-25 Eosinophils # (Auto) 0.1 10 3/uL 0.0-0.7 [facility] Immature Granulocyte # (Auto) 0.02 10 3/uL 0.00-0.03 [facility] Platelet mean volume Auto (B ld) [Entitic vol]on 07-25-2024 Platelet mean volume (Bld) [Entitic vol] 10.3 fL 9.5-13.5 [facility] Platelets Auto (Bld) [#/Vol] on 07-25-2024 Platelets (Bld) [#/Vol] 239 10 3/uL 150-450 [facility] RBC Auto (Bld) [#/Vol]on RBC (Bld) [#/Vol] 3.70 10 6/uL Low 4.20-5.40 [facility] Serum or plasma albumin/glob ulin mass ratioon 07-25-2024 Albumin/Globulin [Mass ratio] 0.5 {ratio} [facility] Serum or plasma anion gap de terminationon 07-25-2024 Anion gap [Moles/Vol] 13.9 mmol/L [facility] Basophils Auto (Bld) [#/Vol] on 07-24-2024 Basophils (Bld) [#/Vol] 0.1 10 3/uL 0.0-0.1 [facility] Basophils/100 WBC Auto (Bld) on 07-24-2024 Basophils/100 WBC (Bld) 0.7 % 0.2-2.0 [facility] Eosinophils/100 WBC Auto (Bl d)on 07-24-2024 Eosinophils/100 WBC (Bld) 1.7 % 0.9-7.0 [facility] Erythrocyte distribution wid th Auto (RBC) [Ratio]on 07-24-2024 Erythrocyte distribution width (RBC) [Ratio] 13.7 % 11.0-15.0 [facility] Estimated glomerular filtrat ion rate (GFR) non- Americanon 07-24-2024 GFR/1.73 sq M.predicted among non-blacks MDRD (S/P/Bld) [Vol rate/Area] 48 mL/min/{1.73_m2} Low >=60 [facility] Hematocrit Auto (Bld) [Volum e fraction]on 07-24-2024 Hematocrit (Bld) [Volume fraction] 34.5 % Low 36.0-48.0 [facility] Hemoglobin [Mass/volume] in Bloodon 07-24-2024 Hemoglobin (Bld) [Mass/Vol] 11.2 g/dL Low 12.0-16.0 [facility] Laboratory - Chemistry and C hemistry - challengeon 07-24-2024 Calcium [Mass/Vol] 8.9 mg/dL 8.5-10.1 [facility] Chloride [Moles/Vol] 104 mmol/L 98-107 [facility] CO2 [Moles/Vol] 26.1 mmol/L 21.0-32.0 [facility] Creatinine [Mass/Vol] 1.11 mg/dL High 0.55-1.02 [facility] GFR/1.73 sq M.predicted MDRD (S/P/Bld) [Vol rate/Area] 58 mL/min/{1.73_m2} Low >=60 [facility] Glucose [Mass/Vol] 247 mg/dL High 74-106 [facility] Natriuretic peptide B (Bld) [Mass/Vol] 6277.0 pg/mL High <=1800.0 [facility] Comment on above: RESULTS CALLED TO YOEL STEWARD RN IN ER BY Mira Maritnez at 1430 Potassium [Moles/Vol] 4.1 mmol/L 3.5-5.1 [facility] Sodium [Moles/Vol] 141 mmol/L 136-145 [facility] Urea nitrogen [Mass/Vol] 28.0 mg/dL High 7.0-18.0 [facility] Urea nitrogen/Creatinine [Mass ratio] 25.2 mg/mg [facility] Laboratory - Hematology and Cell countson 07-24-2024 Immature granulocytes/100 WBC (Bld) 0.3 % 0.0-0.5 [facility] Leukocytes [#/volume] correc gali for nucleated erythrocytes in Blood by Automated counon 07-24-2024 WBC corrected for nucl RBC Auto (Bld) [#/Vol] 9.7 10 3/uL 4.0-11.0 [facility] Lymphocytes Auto (Bld) [#/Vo l]on 07-24-2024 Lymphocytes (Bld) [#/Vol] 0.9 10 3/uL Low 1.2-3.8 [facility] Lymphocytes/100 WBC Auto (Bl d)on 07-24-2024 Lymphocytes/100 WBC (Bld) 9.2 % Low 20.5-60.0 [facility] MCH Auto (RBC) [Entitic mass ]on 07-24-2024 MCH (RBC) [Entitic mass] 29.9 pg 26.7-34.0 [facility] MCHC Auto (RBC) [Mass/Vol]on 07-24-2024 MCHC (RBC) [Mass/Vol] 32.5 g/dL 29.9-35.2 [facility] MCV Auto (RBC) [Entitic vol] on 07-24-2024 MCV (RBC) [Entitic vol] 92.0 fL 81.0-99.0 [facility] Monocytes Auto (Bld) [#/Vol] on 07-24-2024 Monocytes (Bld) [#/Vol] 0.5 10 3/uL 0.3-0.8 [facility] Monocytes/100 WBC Auto (Bld) on 07-24-2024 Monocytes/100 WBC (Bld) 5.3 % 1.7-12.0 [facility] Neutrophils Auto (Bld) [#/Vo l]on 07-24-2024 Neutrophils (Bld) [#/Vol] 8.0 10 3/uL High 1.4-6.5 [facility] Neutrophils/100 WBC Auto (Bl d)on 07-24-2024 Neutrophils/100 WBC (Bld) 82.8 % High 43.0-75.0 [facility] No Panel Informationon 07-24 Eosinophils # (Auto) 0.2 10 3/uL 0.0-0.7 [facility] Immature Granulocyte # (Auto) 0.03 10 3/uL 0.00-0.03 [facility] Troponin I High Sensitivity 20.5 pg/mL 4.0-51.3 [facility] Comment on above: CUT-OFF POINTS [...] [Entitic vol] 10.4 fL 9.5-13.5 [facility] Platelets Auto (Bld) [#/Vol] on 07-24-2024 Platelets (Bld) [#/Vol] 236 10 3/uL 150-450 [facility] RBC Auto (Bld) [#/Vol]on RBC (Bld) [#/Vol] 3.75 10 6/uL Low 4.20-5.40 [facility] Serum or plasma anion gap de terminationon 07-24-2024 Anion gap [Moles/Vol] 15.0 mmol/L [facility] Urine culture routineOrdered By: Shantel Steven on 07-17-2024 Bacteria identified Cx Nom (U) Proteus mirabilis Abnormal [facility] Erythrocyte distribution wid th Auto (RBC) [Ratio]on 07-15-2024 Erythrocyte distribution width (RBC) [Ratio] 13.3 % 11.0-15.0 [facility] Estimated glomerular filtrat ion rate (GFR) non- Americanon 07-15-2024 GFR/1.73 sq M.predicted among non-blacks MDRD (S/P/Bld) [Vol rate/Area] 47 mL/min/{1.73_m2} Low >=60 [facility] Globulin Calc (S) [Mass/Vol] on 07-15-2024 Globulin (S) [Mass/Vol] 4.2 g/dL [facility] Hematocrit Auto (Bld) [Volum e fraction]on 07-15-2024 Hematocrit (Bld) [Volume fraction] 34.9 % Low 36.0-48.0 [facility] Hemoglobin [Mass/volume] in Bloodon 07-15-2024 Hemoglobin (Bld) [Mass/Vol] 11.6 g/dL Low 12.0-16.0 [facility] Laboratory - Chemistry and C hemistry - challengeon 07-15-2024 Bilirubin Ql (U) Negative NEGATIVE [facility] Glucose (U) [Mass/Vol] Negative NEGATIVE [facility] Ketones Ql (U) Negative NEGATIVE [facility] pH (U) 6.5 [pH] 5.0-9.0 [facility] Specific gravity (U) [Rel density] 1.020 1.005-1.025 [facility] Urobilinogen Qn (U) 0.2 {Meka'U}/dL 0.2-1.0 [facility] Albumin [Mass/Vol] 2.6 g/dL Low 3.4-5.0 [facility] ALP [Catalytic activity/Vol] 87 U/L 46-116 [facility] ALT [Catalytic activity/Vol] 18 U/L 14-59 [facility] AST [Catalytic activity/Vol] 14 U/L Low 15-37 [facility] Bilirubin [Mass/Vol] 0.6 mg/dL 0.2-1.0 [facility] Calcium [Mass/Vol] 8.6 mg/dL 8.5-10.1 [facility] Chloride [Moles/Vol] 101 mmol/L 98-107 [facility] CO2 [Moles/Vol] 31.4 mmol/L 21.0-32.0 [facility] Creatinine [Mass/Vol] 1.12 mg/dL High 0.55-1.02 [facility] GFR/1.73 sq M.predicted MDRD (S/P/Bld) [Vol rate/Area] 57 mL/min/{1.73_m2} Low >=60 [facility] Glucose [Mass/Vol] 153 mg/dL High 74-106 [facility] Natriuretic peptide B (Bld) [Mass/Vol] 3410.0 pg/mL High <=1800.0 [facility] Comment on above: RESULTS CALLED TO Bgodan Robin RN at 0840 Potassium [Moles/Vol] 3.6 mmol/L 3.5-5.1 [facility] Protein [Mass/Vol] 6.8 g/dL 6.4-8.2 [facility] Sodium [Moles/Vol] 141 mmol/L 136-145 [facility] Urea nitrogen [Mass/Vol] 43.0 mg/dL High 7.0-18.0 [facility] Urea nitrogen/Creatinine [Mass ratio] 38.4 mg/mg [facility] Laboratory - Specimen inform ationon 07-15-2024 Appearance (U) CLEAR CLEAR [facility] Color (U) LT. YELLOW YELLOW [facility] Laboratory - Urinalysison Leukocyte esterase Test strip Ql (U) Negative NEGATIVE [facility] Mucus Ql (Urine sed) NONE SEEN NONE SEEN [facility] Nitrite Ql (U) Negative NEGATIVE [facility] Protein Ql (U) 100 mg/dL Abnormal NEG/TRACE [facility] Leukocytes [#/volume] correc gali for nucleated erythrocytes in Blood by Automated counon 07-15-2024 WBC corrected for nucl RBC Auto (Bld) [#/Vol] 8.5 10 3/uL 4.0-11.0 [facility] MCH Auto (RBC) [Entitic mass ]on 07-15-2024 MCH (RBC) [Entitic mass] 29.9 pg 26.7-34.0 [facility] MCHC Auto (RBC) [Mass/Vol]on 07-15-2024 MCHC (RBC) [Mass/Vol] 33.2 g/dL 29.9-35.2 [facility] MCV Auto (RBC) [Entitic vol] on 07-15-2024 MCV (RBC) [Entitic vol] 89.9 fL 81.0-99.0 [facility] No Panel Informationon 07-15 Urine Bacteria NONE SEEN #/HPF NONE SEEN [facility] Urine Occult Blood TRACE-I NEGATIVE [facility] Urine RBC 0-2 #/HPF 0-2 [facility] Urine Squamous Epithelial Cells FEW #/LPF Abnormal NONE/RARE [facility] Urine WBC NONE SEEN #/HPF NONE SEEN [facility] NONE SEEN #/HPF NONE SEEN [facility] Negative NEGATIVE [facility] TRACE-I NEGATIVE [facility] CLEAR CLEAR [facility] LT. YELLOW YELLOW [facility] NONE SEEN NONE SEEN [facility] 6.5 5.0-9.0 [facility] 100 mg/dL Abnormal NEG/TRACE [facility] 0-2 #/HPF 0-2 [facility] 1.020 1.005-1.025 [facility] FEW #/LPF Abnormal NONE/RARE [facility] 0.2 EU/dL 0.2-1.0 [facility] Troponin I High Sensitivity 21.3 pg/mL 4.0-51.3 [facility] Comment on above: CUT-OFF POINTS [...] INFORMATION. 3410.0 pg/mL High <=1800.0 [facility] 21.3 pg/mL 4.0-51.3 [facility] 2.6 g/dL Low 3.4-5.0 [facility] 87 U/L 46-116 [facility] 18 U/L 14-59 [facility] 14 U/L Low 15-37 [facility] 38.4 [facility] 43.0 mg/dL High 7.0-18.0 [facility] 8.6 mg/dL 8.5-10.1 [facility] 101 mmol/L 98-107 [facility] 31.4 mmol/L 21.0-32.0 [facility] 1.12 mg/dL High 0.55-1.02 [facility] 57 Low >=60 [facility] 153 mg/dL High 74-106 [facility] 3.6 mmol/L 3.5-5.1 [facility] 141 mmol/L 136-145 [facility] 0.6 mg/dL 0.2-1.0 [facility] 6.8 g/dL 6.4-8.2 [facility] Platelet mean volume Auto (B ld) [Entitic vol]on 07-15-2024 Platelet mean volume (Bld) [Entitic vol] 11.0 fL 9.5-13.5 [facility] Platelets Auto (Bld) [#/Vol] on 07-15-2024 Platelets (Bld) [#/Vol] 177 10 3/uL 150-450 [facility] RBC Auto (Bld) [#/Vol]on RBC (Bld) [#/Vol] 3.88 10 6/uL Low 4.20-5.40 [facility] Serum or plasma albumin/glob ulin mass ratioon 07-15-2024 Albumin/Globulin [Mass ratio] 0.6 {ratio} [facility] Serum or plasma anion gap de terminationon 07-15-2024 Anion gap [Moles/Vol] 12.2 [facility] Basophils Auto (Bld) [#/Vol] on 07-14-2024 Basophils (Bld) [#/Vol] 0.1 10 3/uL 0.0-0.1 [facility] Basophils/100 WBC Auto (Bld) on 07-14-2024 Basophils/100 WBC (Bld) 0.9 % 0.2-2.0 [facility] Eosinophils/100 WBC Auto (Bl d)on 07-14-2024 Eosinophils/100 WBC (Bld) 1.3 % 0.9-7.0 [facility] Erythrocyte distribution wid th Auto (RBC) [Ratio]on 07-14-2024 Erythrocyte distribution width (RBC) [Ratio] 13.5 % 11.0-15.0 [facility] Estimated glomerular filtrat ion rate (GFR) non- Americanon 07-14-2024 GFR/1.73 sq M.predicted among non-blacks MDRD (S/P/Bld) [Vol rate/Area] 30 mL/min/{1.73_m2} Low >=60 [facility] Hematocrit Auto (Bld) [Volum e fraction]on 07-14-2024 Hematocrit (Bld) [Volume fraction] 38.5 % 36.0-48.0 [facility] Hemoglobin [Mass/volume] in Bloodon 07-14-2024 Hemoglobin (Bld) [Mass/Vol] 12.8 g/dL 12.0-16.0 [facility] Laboratory - Chemistry and C hemistry - challengeon 07-14-2024 Calcium [Mass/Vol] 9.0 mg/dL 8.5-10.1 [facility] Chloride [Moles/Vol] 96 mmol/L Low 98-107 [facility] CO2 [Moles/Vol] 35.5 mmol/L High 21.0-32.0 [facility] Creatinine [Mass/Vol] 1.65 mg/dL High 0.55-1.02 [facility] GFR/1.73 sq M.predicted MDRD (S/P/Bld) [Vol rate/Area] 36 mL/min/{1.73_m2} Low >=60 [facility] Glucose [Mass/Vol] 458 mg/dL High 74-106 [facility] Potassium [Moles/Vol] 4.0 mmol/L 3.5-5.1 [facility] Sodium [Moles/Vol] 135 mmol/L Low 136-145 [facility] Urea nitrogen [Mass/Vol] 52.0 mg/dL High 7.0-18.0 [facility] Urea nitrogen/Creatinine [Mass ratio] 31.5 mg/mg [facility] Laboratory - Hematology and Cell countson 07-14-2024 Immature granulocytes/100 WBC (Bld) 0.1 % 0.0-0.5 [facility] Leukocytes [#/volume] correc gali for nucleated erythrocytes in Blood by Automated counon 07-14-2024 WBC corrected for nucl RBC Auto (Bld) [#/Vol] 8.2 10 3/uL 4.0-11.0 [facility] Lymphocytes Auto (Bld) [#/Vo l]on 07-14-2024 Lymphocytes (Bld) [#/Vol] 1.1 10 3/uL Low 1.2-3.8 [facility] Lymphocytes/100 WBC Auto (Bl d)on 07-14-2024 Lymphocytes/100 WBC (Bld) 13.7 % Low 20.5-60.0 [facility] MCH Auto (RBC) [Entitic mass ]on 07-14-2024 MCH (RBC) [Entitic mass] 30.0 pg 26.7-34.0 [facility] MCHC Auto (RBC) [Mass/Vol]on 07-14-2024 MCHC (RBC) [Mass/Vol] 33.2 g/dL 29.9-35.2 [facility] MCV Auto (RBC) [Entitic vol] on 07-14-2024 MCV (RBC) [Entitic vol] 90.2 fL 81.0-99.0 [facility] Monocytes Auto (Bld) [#/Vol] on 07-14-2024 Monocytes (Bld) [#/Vol] 0.5 10 3/uL 0.3-0.8 [facility] Monocytes/100 WBC Auto (Bld) on 07-14-2024 Monocytes/100 WBC (Bld) 6.6 % 1.7-12.0 [facility] Neutrophils Auto (Bld) [#/Vo l]on 07-14-2024 Neutrophils (Bld) [#/Vol] 6.3 10 3/uL 1.4-6.5 [facility] Neutrophils/100 WBC Auto (Bl d)on 07-14-2024 Neutrophils/100 WBC (Bld) 77.4 % High 43.0-75.0 [facility] No Panel Informationon 07-14 Eosinophils # (Auto) 0.1 10 3/uL 0.0-0.7 [facility] Immature Granulocyte # (Auto) 0.01 10 3/uL 0.00-0.03 [facility] Troponin I High Sensitivity 17.9 pg/mL 4.0-51.3 [facility] Comment on above: CUT-OFF POINTS [...] CLINICAL INFORMATION. 17.9 pg/mL 4.0-51.3 [facility] 31.5 [facility] 0.1 10 3/uL 0.0-0.7 [facility] 52.0 mg/dL High 7.0-18.0 [facility] 9.0 mg/dL 8.5-10.1 [facility] 96 mmol/L Low 98-107 [facility] 35.5 mmol/L High 21.0-32.0 [facility] 0.01 10 3/uL 0.00-0.03 [facility] 1.65 mg/dL High 0.55-1.02 [facility] 0.1 % 0.0-0.5 [facility] 36 Low >=60 [facility] 458 mg/dL High 74-106 [facility] 4.0 mmol/L 3.5-5.1 [facility] 135 mmol/L Low 136-145 [facility] Platelet mean volume Auto (B ld) [Entitic vol]on 07-14-2024 Platelet mean volume (Bld) [Entitic vol] 11.0 fL 9.5-13.5 [facility] Platelets Auto (Bld) [#/Vol] on 07-14-2024 Platelets (Bld) [#/Vol] 182 10 3/uL 150-450 [facility] RBC Auto (Bld) [#/Vol]on RBC (Bld) [#/Vol] 4.27 10 6/uL 4.20-5.40 [facility] Serum or plasma anion gap de terminationon 07-14-2024 Anion gap [Moles/Vol] 7.5 mmol/L [facility] Estimated glomerular filtrat ion rate (GFR) non- Americanon 06-24-2024 GFR/1.73 sq M.predicted among non-blacks MDRD (S/P/Bld) [Vol rate/Area] 38 mL/min/{1.73_m2} Low >=60 [facility] Laboratory - Chemistry and C hemistry - challengeon 06-24-2024 Calcium [Mass/Vol] 8.4 mg/dL Low 8.5-10.1 [facility] Chloride [Moles/Vol] 100 mmol/L 98-107 [facility] CO2 [Moles/Vol] 31.1 mmol/L 21.0-32.0 [facility] Creatinine [Mass/Vol] 1.34 mg/dL High 0.55-1.02 [facility] GFR/1.73 sq M.predicted MDRD (S/P/Bld) [Vol rate/Area] 46 mL/min/{1.73_m2} Low >=60 [facility] Glucose [Mass/Vol] 222 mg/dL High 74-106 [facility] Potassium [Moles/Vol] 3.6 mmol/L 3.5-5.1 [facility] Sodium [Moles/Vol] 138 mmol/L 136-145 [facility] Urea nitrogen [Mass/Vol] 32.0 mg/dL High 7.0-18.0 [facility] Urea nitrogen/Creatinine [Mass ratio] 23.9 mg/mg [facility] No Panel Informationon 06-24 23.9 [facility] 32.0 mg/dL High 7.0-18.0 [facility] 8.4 mg/dL Low 8.5-10.1 [facility] 100 mmol/L 98-107 [facility] 31.1 mmol/L 21.0-32.0 [facility] 1.34 mg/dL High 0.55-1.02 [facility] 46 Low >=60 [facility] 222 mg/dL High 74-106 [facility] 3.6 mmol/L 3.5-5.1 [facility] 138 mmol/L 136-145 [facility] Serum or plasma anion gap de terminationon 06-24-2024 Anion gap [Moles/Vol] 10.5 mmol/L [facility] Basophils Auto (Bld) [#/Vol] on 06-10-2024 Basophils (Bld) [#/Vol] 0.1 10 3/uL 0.0-0.1 [facility] Basophils/100 WBC Auto (Bld) on 06-10-2024 Basophils/100 WBC (Bld) 1.0 % 0.2-2.0 [facility] Eosinophils/100 WBC Auto (Bl d)on 06-10-2024 Eosinophils/100 WBC (Bld) 1.3 % 0.9-7.0 [facility] Erythrocyte distribution wid th Auto (RBC) [Ratio]on 06-10-2024 Erythrocyte distribution width (RBC) [Ratio] 14.6 % 11.0-15.0 [facility] Estimated glomerular filtrat ion rate (GFR) non- Americanon 06-10-2024 GFR/1.73 sq M.predicted among non-blacks MDRD (S/P/Bld) [Vol rate/Area] 54 mL/min/{1.73_m2} Low >=60 [facility] Globulin Calc (S) [Mass/Vol] on 06-10-2024 Globulin (S) [Mass/Vol] 4.5 g/dL [facility] Hematocrit Auto (Bld) [Volum e fraction]on 06-10-2024 Hematocrit (Bld) [Volume fraction] 36.8 % 36.0-48.0 [facility] Hemoglobin [Mass/volume] in Bloodon 06-10-2024 Hemoglobin (Bld) [Mass/Vol] 12.1 g/dL 12.0-16.0 [facility] Laboratory - Chemistry and C hemistry - challengeon 06-10-2024 Albumin [Mass/Vol] 2.4 g/dL Low 3.4-5.0 [facility] ALP [Catalytic activity/Vol] 94 U/L 46-116 [facility] ALT [Catalytic activity/Vol] 13 U/L Low 14-59 [facility] AST [Catalytic activity/Vol] 13 U/L Low 15-37 [facility] Bilirubin [Mass/Vol] 0.9 mg/dL 0.2-1.0 [facility] Calcium [Mass/Vol] 8.9 mg/dL 8.5-10.1 [facility] Chloride [Moles/Vol] 101 mmol/L 98-107 [facility] CO2 [Moles/Vol] 29.4 mmol/L 21.0-32.0 [facility] Creatinine [Mass/Vol] 1.00 mg/dL 0.55-1.02 [facility] GFR/1.73 sq M.predicted MDRD (S/P/Bld) [Vol rate/Area] mL/min/{1.73_m2} >=60 [facility] Glucose [Mass/Vol] 167 mg/dL High 74-106 [facility] Potassium [Moles/Vol] 3.4 mmol/L Low 3.5-5.1 [facility] Protein [Mass/Vol] 6.9 g/dL 6.4-8.2 [facility] Sodium [Moles/Vol] 136 mmol/L 136-145 [facility] Urea nitrogen [Mass/Vol] 24.0 mg/dL High 7.0-18.0 [facility] Urea nitrogen/Creatinine [Mass ratio] 24.0 mg/mg [facility] Laboratory - Hematology and Cell countson 06-10-2024 Immature granulocytes/100 WBC (Bld) 0.3 % 0.0-0.5 [facility] Leukocytes [#/volume] correc gali for nucleated erythrocytes in Blood by Automated counon 06-10-2024 WBC corrected for nucl RBC Auto (Bld) [#/Vol] 7.9 10 3/uL 4.0-11.0 [facility] Lymphocytes Auto (Bld) [#/Vo l]on 06-10-2024 Lymphocytes (Bld) [#/Vol] 1.3 10 3/uL 1.2-3.8 [facility] Lymphocytes/100 WBC Auto (Bl d)on 06-10-2024 Lymphocytes/100 WBC (Bld) 16.8 % Low 20.5-60.0 [facility] MCH Auto (RBC) [Entitic mass ]on 06-10-2024 MCH (RBC) [Entitic mass] 29.8 pg 26.7-34.0 [facility] MCHC Auto (RBC) [Mass/Vol]on 06-10-2024 MCHC (RBC) [Mass/Vol] 32.9 g/dL 29.9-35.2 [facility] MCV Auto (RBC) [Entitic vol] on 06-10-2024 MCV (RBC) [Entitic vol] 90.6 fL 81.0-99.0 [facility] Monocytes Auto (Bld) [#/Vol] on 06-10-2024 Monocytes (Bld) [#/Vol] 0.8 10 3/uL 0.3-0.8 [facility] Monocytes/100 WBC Auto (Bld) on 06-10-2024 Monocytes/100 WBC (Bld) 9.8 % 1.7-12.0 [facility] Neutrophils Auto (Bld) [#/Vo l]on 06-10-2024 Neutrophils (Bld) [#/Vol] 5.6 10 3/uL 1.4-6.5 [facility] Neutrophils/100 WBC Auto (Bl d)on 06-10-2024 Neutrophils/100 WBC (Bld) 70.8 % 43.0-75.0 [facility] No Panel Informationon 06-10 Eosinophils # (Auto) 0.1 10 3/uL 0.0-0.7 [facility] Immature Granulocyte # (Auto) 0.02 10 3/uL 0.00-0.03 [facility] 2.4 g/dL Low 3.4-5.0 [facility] 0.1 10 3/uL 0.0-0.7 [facility] 94 U/L 46-116 [facility] 13 U/L Low 15-37 [facility] 24.0 [facility] 0.02 10 3/uL 0.00-0.03 [facility] 24.0 mg/dL High 7.0-18.0 [facility] 0.3 % 0.0-0.5 [facility] 8.9 mg/dL 8.5-10.1 [facility] 101 mmol/L 98-107 [facility] 29.4 mmol/L 21.0-32.0 [facility] 1.00 mg/dL 0.55-1.02 [facility] >60 >=60 [facility] 167 mg/dL High 74-106 [facility] 3.4 mmol/L Low 3.5-5.1 [facility] 136 mmol/L 136-145 [facility] 0.9 mg/dL 0.2-1.0 [facility] 6.9 g/dL 6.4-8.2 [facility] Platelet mean volume Auto (B ld) [Entitic vol]on 06-10-2024 Platelet mean volume (Bld) [Entitic vol] 11.2 fL 9.5-13.5 [facility] Platelets Auto (Bld) [#/Vol] on 06-10-2024 Platelets (Bld) [#/Vol] 189 10 3/uL 150-450 [facility] RBC Auto (Bld) [#/Vol]on RBC (Bld) [#/Vol] 4.06 10 6/uL Low 4.20-5.40 [facility] Serum or plasma albumin/glob ulin mass ratioon 06-10-2024 Albumin/Globulin [Mass ratio] 0.5 {ratio} [facility] Serum or plasma anion gap de terminationon 06-10-2024 Anion gap [Moles/Vol] 9.0 mmol/L [facility] Basophils Auto (Bld) [#/Vol] on 06-09-2024 Basophils (Bld) [#/Vol] 0.1 10 3/uL 0.0-0.1 [facility] Basophils/100 WBC Auto (Bld) on 06-09-2024 Basophils/100 WBC (Bld) 1.0 % 0.2-2.0 [facility] Eosinophils/100 WBC Auto (Bl d)on 06-09-2024 Eosinophils/100 WBC (Bld) 1.5 % 0.9-7.0 [facility] Erythrocyte distribution wid th Auto (RBC) [Ratio]on 06-09-2024 Erythrocyte distribution width (RBC) [Ratio] 14.8 % 11.0-15.0 [facility] Estimated glomerular filtrat ion rate (GFR) non- Americanon 06-09-2024 GFR/1.73 sq M.predicted among non-blacks MDRD (S/P/Bld) [Vol rate/Area] mL/min/{1.73_m2} >=60 [facility] Fibrin D-dimer [Presence] in Platelet poor plasma by Latex agglutinationon 06-09-2024 Fibrin D-dimer LA Ql (PPP) 0.39 mg/L FEU <=0.59 [facility] Comment on above: Increases in [...] Globulin (S) [Mass/Vol] 4.8 g/dL [facility] Hematocrit Auto (Bld) [Volum e fraction]on 06-09-2024 Hematocrit (Bld) [Volume fraction] 37.7 % 36.0-48.0 [facility] Hemoglobin [Mass/volume] in Bloodon 06-09-2024 Hemoglobin (Bld) [Mass/Vol] 12.5 g/dL 12.0-16.0 [facility] Laboratory - Chemistry and C hemistry - challengeon 06-09-2024 Albumin [Mass/Vol] 2.5 g/dL Low 3.4-5.0 [facility] ALP [Catalytic activity/Vol] 86 U/L 46-116 [facility] ALT [Catalytic activity/Vol] 18 U/L 14-59 [facility] AST [Catalytic activity/Vol] 34 U/L 15-37 [facility] Bilirubin [Mass/Vol] 0.8 mg/dL 0.2-1.0 [facility] Calcium [Mass/Vol] 8.6 mg/dL 8.5-10.1 [facility] Chloride [Moles/Vol] 103 mmol/L 98-107 [facility] CO2 [Moles/Vol] 27.1 mmol/L 21.0-32.0 [facility] Creatinine [Mass/Vol] 0.88 mg/dL 0.55-1.02 [facility] GFR/1.73 sq M.predicted MDRD (S/P/Bld) [Vol rate/Area] mL/min/{1.73_m2} >=60 [facility] Glucose [Mass/Vol] 142 mg/dL High 74-106 [facility] Lipase [Catalytic activity/Vol] 45.0 U/L 16.0-77.0 [facility] Natriuretic peptide B (Bld) [Mass/Vol] 3488.0 pg/mL High <=1800.0 [facility] Comment on above: RESULTS CALLED TO MAIDA MCGOWAN RN @BY Alla Kevin [id number] Potassium [Moles/Vol] 5.0 mmol/L 3.5-5.1 [facility] Protein [Mass/Vol] 7.3 g/dL 6.4-8.2 [facility] Sodium [Moles/Vol] 135 mmol/L Low 136-145 [facility] Urea nitrogen [Mass/Vol] 28.0 mg/dL High 7.0-18.0 [facility] Urea nitrogen/Creatinine [Mass ratio] 31.8 mg/mg [facility] Laboratory - Hematology and Cell countson 06-09-2024 Immature granulocytes/100 WBC (Bld) 0.3 % 0.0-0.5 [facility] Laboratory - Microbiology an d Antimicrobial susceptibilityon 06-09-2024 SARS-CoV-2 (COVID-19) RNA FERN+probe Ql (Unsp spec) Negative NEGATIVE [facility] Comment on above: This test has not [...] [#/Vol] 8.9 10 3/uL 4.0-11.0 [facility] Lymphocytes Auto (Bld) [#/Vo l]on 06-09-2024 Lymphocytes (Bld) [#/Vol] 1.3 10 3/uL 1.2-3.8 [facility] Lymphocytes/100 WBC Auto (Bl d)on 06-09-2024 Lymphocytes/100 WBC (Bld) 15.1 % Low 20.5-60.0 [facility] MCH Auto (RBC) [Entitic mass ]on 06-09-2024 MCH (RBC) [Entitic mass] 30.3 pg 26.7-34.0 [facility] MCHC Auto (RBC) [Mass/Vol]on 06-09-2024 MCHC (RBC) [Mass/Vol] 33.2 g/dL 29.9-35.2 [facility] MCV Auto (RBC) [Entitic vol] on 06-09-2024 MCV (RBC) [Entitic vol] 91.5 fL 81.0-99.0 [facility] Monocytes Auto (Bld) [#/Vol] on 06-09-2024 Monocytes (Bld) [#/Vol] 0.7 10 3/uL 0.3-0.8 [facility] Monocytes/100 WBC Auto (Bld) on 06-09-2024 Monocytes/100 WBC (Bld) 7.9 % 1.7-12.0 [facility] Neutrophils Auto (Bld) [#/Vo l]on 06-09-2024 Neutrophils (Bld) [#/Vol] 6.6 10 3/uL High 1.4-6.5 [facility] Neutrophils/100 WBC Auto (Bl d)on 06-09-2024 Neutrophils/100 WBC (Bld) 74.2 % 43.0-75.0 [facility] No Panel Informationon 06-09 Negative NEGATIVE [facility] Eosinophils # (Auto) 0.1 10 3/uL 0.0-0.7 [facility] Immature Granulocyte # (Auto) 0.03 10 3/uL 0.00-0.03 [facility] Troponin I High Sensitivity 17.0 pg/mL 4.0-51.3 [facility] Comment on above: CUT-OFF POINTS [...] INFORMATION. 3488.0 pg/mL High <=1800.0 [facility] 45.0 U/L 16.0-77.0 [facility] 17.0 pg/mL 4.0-51.3 [facility] 2.5 g/dL Low 3.4-5.0 [facility] 0.1 10 3/uL 0.0-0.7 [facility] 86 U/L 46-116 [facility] 18 U/L 14-59 [facility] 34 U/L 15-37 [facility] 31.8 [facility] 0.03 10 3/uL 0.00-0.03 [facility] 28.0 mg/dL High 7.0-18.0 [facility] 0.3 % 0.0-0.5 [facility] 8.6 mg/dL 8.5-10.1 [facility] 103 mmol/L 98-107 [facility] 27.1 mmol/L 21.0-32.0 [facility] 0.88 mg/dL 0.55-1.02 [facility] >60 >=60 [facility] 142 mg/dL High 74-106 [facility] 5.0 mmol/L 3.5-5.1 [facility] 135 mmol/L Low 136-145 [facility] 0.8 mg/dL 0.2-1.0 [facility] 7.3 g/dL 6.4-8.2 [facility] Platelet mean volume Auto (B ld) [Entitic vol]on 06-09-2024 Platelet mean volume (Bld) [Entitic vol] 12.4 fL 9.5-13.5 [facility] Platelets Auto (Bld) [#/Vol] on 06-09-2024 Platelets (Bld) [#/Vol] 205 10 3/uL 150-450 [facility] RBC Auto (Bld) [#/Vol]on RBC (Bld) [#/Vol] 4.12 10 6/uL Low 4.20-5.40 [facility] Serum or plasma albumin/glob ulin mass ratioon 06-09-2024 Albumin/Globulin [Mass ratio] 0.5 {ratio} [facility] Serum or plasma anion gap de terminationon 06-09-2024 Anion gap [Moles/Vol] 9.9 mmol/L [facility] Basophils Auto (Bld) [#/Vol] on 06-01-2024 Basophils (Bld) [#/Vol] 0.1 10 3/uL 0.0-0.1 [facility] Basophils/100 WBC Auto (Bld) on 06-01-2024 Basophils/100 WBC (Bld) 0.9 % 0.2-2.0 [facility] Eosinophils/100 WBC Auto (Bl d)on 06-01-2024 Eosinophils/100 WBC (Bld) 1.2 % 0.9-7.0 [facility] Erythrocyte distribution wid th Auto (RBC) [Ratio]on 06-01-2024 Erythrocyte distribution width (RBC) [Ratio] 14.1 % 11.0-15.0 [facility] Estimated glomerular filtrat ion rate (GFR) non- Americanon 06-01-2024 GFR/1.73 sq M.predicted among non-blacks MDRD (S/P/Bld) [Vol rate/Area] 47 mL/min/{1.73_m2} Low >=60 [facility] Globulin Calc (S) [Mass/Vol] on 06-01-2024 Globulin (S) [Mass/Vol] 4.4 g/dL [facility] Hematocrit Auto (Bld) [Volum e fraction]on 06-01-2024 Hematocrit (Bld) [Volume fraction] 37.6 % 36.0-48.0 [facility] Hemoglobin [Mass/volume] in Bloodon 06-01-2024 Hemoglobin (Bld) [Mass/Vol] 12.5 g/dL 12.0-16.0 [facility] Laboratory - Chemistry and C hemistry - challengeon 06-01-2024 Albumin [Mass/Vol] 2.7 g/dL Low 3.4-5.0 [facility] ALP [Catalytic activity/Vol] 87 U/L 46-116 [facility] ALT [Catalytic activity/Vol] 18 U/L 14-59 [facility] AST [Catalytic activity/Vol] 16 U/L 15-37 [facility] Bilirubin [Mass/Vol] 0.5 mg/dL 0.2-1.0 [facility] Calcium [Mass/Vol] 8.7 mg/dL 8.5-10.1 [facility] Chloride [Moles/Vol] 101 mmol/L 98-107 [facility] CO2 [Moles/Vol] 28.9 mmol/L 21.0-32.0 [facility] Creatinine [Mass/Vol] 1.12 mg/dL High 0.55-1.02 [facility] GFR/1.73 sq M.predicted MDRD (S/P/Bld) [Vol rate/Area] 57 mL/min/{1.73_m2} Low >=60 [facility] Glucose [Mass/Vol] 232 mg/dL High 74-106 [facility] Potassium [Moles/Vol] 4.1 mmol/L 3.5-5.1 [facility] Protein [Mass/Vol] 7.1 g/dL 6.4-8.2 [facility] Sodium [Moles/Vol] 137 mmol/L 136-145 [facility] Urea nitrogen [Mass/Vol] 23.0 mg/dL High 7.0-18.0 [facility] Urea nitrogen/Creatinine [Mass ratio] 20.5 mg/mg [facility] Laboratory - Hematology and Cell countson 06-01-2024 Immature granulocytes/100 WBC (Bld) 0.2 % 0.0-0.5 [facility] Leukocytes [#/volume] correc gali for nucleated erythrocytes in Blood by Automated counon 06-01-2024 WBC corrected for nucl RBC Auto (Bld) [#/Vol] 9.0 10 3/uL 4.0-11.0 [facility] Lymphocytes Auto (Bld) [#/Vo l]on 06-01-2024 Lymphocytes (Bld) [#/Vol] 1.4 10 3/uL 1.2-3.8 [facility] Lymphocytes/100 WBC Auto (Bl d)on 06-01-2024 Lymphocytes/100 WBC (Bld) 15.9 % Low 20.5-60.0 [facility] MCH Auto (RBC) [Entitic mass ]on 06-01-2024 MCH (RBC) [Entitic mass] 29.5 pg 26.7-34.0 [facility] MCHC Auto (RBC) [Mass/Vol]on 06-01-2024 MCHC (RBC) [Mass/Vol] 33.2 g/dL 29.9-35.2 [facility] MCV Auto (RBC) [Entitic vol] on 06-01-2024 MCV (RBC) [Entitic vol] 88.7 fL 81.0-99.0 [facility] Monocytes Auto (Bld) [#/Vol] on 06-01-2024 Monocytes (Bld) [#/Vol] 0.8 10 3/uL 0.3-0.8 [facility] Monocytes/100 WBC Auto (Bld) on 06-01-2024 Monocytes/100 WBC (Bld) 8.5 % 1.7-12.0 [facility] Neutrophils Auto (Bld) [#/Vo l]on 06-01-2024 Neutrophils (Bld) [#/Vol] 6.6 10 3/uL High 1.4-6.5 [facility] Neutrophils/100 WBC Auto (Bl d)on 06-01-2024 Neutrophils/100 WBC (Bld) 73.3 % 43.0-75.0 [facility] No Panel Informationon 06-01 Eosinophils # (Auto) 0.1 10 3/uL 0.0-0.7 [facility] Immature Granulocyte # (Auto) 0.02 10 3/uL 0.00-0.03 [facility] 2.7 g/dL Low 3.4-5.0 [facility] 0.1 10 3/uL 0.0-0.7 [facility] 87 U/L 46-116 [facility] 18 U/L 14-59 [facility] 16 U/L 15-37 [facility] 20.5 [facility] 0.02 10 3/uL 0.00-0.03 [facility] 23.0 mg/dL High 7.0-18.0 [facility] 0.2 % 0.0-0.5 [facility] 8.7 mg/dL 8.5-10.1 [facility] 101 mmol/L 98-107 [facility] 28.9 mmol/L 21.0-32.0 [facility] 1.12 mg/dL High 0.55-1.02 [facility] 57 Low >=60 [facility] 232 mg/dL High 74-106 [facility] 4.1 mmol/L 3.5-5.1 [facility] 137 mmol/L 136-145 [facility] 0.5 mg/dL 0.2-1.0 [facility] 7.1 g/dL 6.4-8.2 [facility] Platelet mean volume Auto (B ld) [Entitic vol]on 06-01-2024 Platelet mean volume (Bld) [Entitic vol] 11.1 fL 9.5-13.5 [facility] Platelets Auto (Bld) [#/Vol] on 06-01-2024 Platelets (Bld) [#/Vol] 162 10 3/uL 150-450 [facility] RBC Auto (Bld) [#/Vol]on RBC (Bld) [#/Vol] 4.24 10 6/uL 4.20-5.40 [facility] Serum or plasma albumin/glob ulin mass ratioon 06-01-2024 Albumin/Globulin [Mass ratio] 0.6 {ratio} [facility] Serum or plasma anion gap de terminationon 06-01-2024 Anion gap [Moles/Vol] 11.2 [facility] Basophils Auto (Bld) [#/Vol] on 05-26-2024 Basophils (Bld) [#/Vol] 0.1 10 3/uL 0.0-0.1 [facility] Basophils/100 WBC Auto (Bld) on 05-26-2024 Basophils/100 WBC (Bld) 1.1 % 0.2-2.0 [facility] Eosinophils/100 WBC Auto (Bl d)on 05-26-2024 Eosinophils/100 WBC (Bld) 2.1 % 0.9-7.0 [facility] Erythrocyte distribution wid th Auto (RBC) [Ratio]on 05-26-2024 Erythrocyte distribution width (RBC) [Ratio] 14.0 % 11.0-15.0 [facility] Estimated glomerular filtrat ion rate (GFR) non- Americanon 05-26-2024 GFR/1.73 sq M.predicted among non-blacks MDRD (S/P/Bld) [Vol rate/Area] 40 mL/min/{1.73_m2} Low >=60 [facility] Globulin Calc (S) [Mass/Vol] on 05-26-2024 Globulin (S) [Mass/Vol] 4.4 g/dL [facility] Hematocrit Auto (Bld) [Volum e fraction]on 05-26-2024 Hematocrit (Bld) [Volume fraction] 35.9 % Low 36.0-48.0 [facility] Hemoglobin [Mass/volume] in Bloodon 05-26-2024 Hemoglobin (Bld) [Mass/Vol] 12.0 g/dL 12.0-16.0 [facility] Laboratory - Chemistry and C hemistry - challengeon 05-26-2024 Albumin [Mass/Vol] 2.7 g/dL Low 3.4-5.0 [facility] ALP [Catalytic activity/Vol] 88 U/L 46-116 [facility] ALT [Catalytic activity/Vol] 20 U/L 14-59 [facility] AST [Catalytic activity/Vol] 12 U/L Low 15-37 [facility] Bilirubin [Mass/Vol] 0.5 mg/dL 0.2-1.0 [facility] Calcium [Mass/Vol] 8.9 mg/dL 8.5-10.1 [facility] Chloride [Moles/Vol] 104 mmol/L 98-107 [facility] CO2 [Moles/Vol] 26.7 mmol/L 21.0-32.0 [facility] Creatinine [Mass/Vol] 1.29 mg/dL High 0.55-1.02 [facility] Free T4 [Mass/Vol] 1.19 ng/dL 0.76-1.46 [facility] GFR/1.73 sq M.predicted MDRD (S/P/Bld) [Vol rate/Area] 49 mL/min/{1.73_m2} Low >=60 [facility] Glucose [Mass/Vol] 233 mg/dL High 74-106 [facility] Natriuretic peptide B (Bld) [Mass/Vol] 2687.0 pg/mL High <=1800.0 [facility] Comment on above: RESULTS CALLED TO DR Miranda ALVAREZ IN ER BY Mira Edwards [id number] Potassium [Moles/Vol] 4.0 mmol/L 3.5-5.1 [facility] Protein [Mass/Vol] 7.1 g/dL 6.4-8.2 [facility] Sodium [Moles/Vol] 140 mmol/L 136-145 [facility] TSH Qn 4.487 m[IU]/L High 0.358-3.740 [facility] Urea nitrogen [Mass/Vol] 33.0 mg/dL High 7.0-18.0 [facility] Urea nitrogen/Creatinine [Mass ratio] 25.6 mg/mg [facility] Laboratory - Hematology and Cell countson 05-26-2024 Immature granulocytes/100 WBC (Bld) 0.1 % 0.0-0.5 [facility] Laboratory - Microbiology an d Antimicrobial susceptibilityon 05-26-2024 S. pyogenes Ag Ql (Unsp spec) Negative [facility] SARS-CoV-2 (COVID-19) RNA FERN+probe Ql (Unsp spec) Not detected NOT DETECTE [facility] Comment on above: THIS TEST IS NOT PEREZ ROVDED BY THE FDA. It has beenauthorized for use under an Emergency Use Authorization. SARS-CoV-2 (COVID-19) RNA FERN+probe Ql (Unsp spec) See comment NOT DETECTE [facility] Comment on above: COVID AG PERFORMED-- - 06/06/24 1120 ---SARS-CoV-2 FERN previously reported as: NOT DETECTEDTHIS TEST IS NOT APPROVDED BY THE FDA. It has beenauthorized for use under an Emergency Use Authorization. SARS-CoV-2 (COVID-19) RNA FERN+probe Ql (Unsp spec) Negative NEGATIVE [facility] Comment on above: This test has not [...] [#/Vol] 7.3 10 3/uL 4.0-11.0 [facility] Lymphocytes Auto (Bld) [#/Vo l]on 05-26-2024 Lymphocytes (Bld) [#/Vol] 1.3 10 3/uL 1.2-3.8 [facility] Lymphocytes/100 WBC Auto (Bl d)on 05-26-2024 Lymphocytes/100 WBC (Bld) 18.4 % Low 20.5-60.0 [facility] MCH Auto (RBC) [Entitic mass ]on 05-26-2024 MCH (RBC) [Entitic mass] 30.4 pg 26.7-34.0 [facility] MCHC Auto (RBC) [Mass/Vol]on 05-26-2024 MCHC (RBC) [Mass/Vol] 33.4 g/dL 29.9-35.2 [facility] MCV Auto (RBC) [Entitic vol] on 05-26-2024 MCV (RBC) [Entitic vol] 90.9 fL 81.0-99.0 [facility] Monocytes Auto (Bld) [#/Vol] on 05-26-2024 Monocytes (Bld) [#/Vol] 0.7 10 3/uL 0.3-0.8 [facility] Monocytes/100 WBC Auto (Bld) on 05-26-2024 Monocytes/100 WBC (Bld) 9.5 % 1.7-12.0 [facility] Neutrophils Auto (Bld) [#/Vo l]on 05-26-2024 Neutrophils (Bld) [#/Vol] 5.0 10 3/uL 1.4-6.5 [facility] Neutrophils/100 WBC Auto (Bl d)on 05-26-2024 Neutrophils/100 WBC (Bld) 68.8 % 43.0-75.0 [facility] No Panel Informationon 05-26 See comment NOT DETECTE [facility] Negative [facility] Eosinophils # (Auto) 0.2 10 3/uL 0.0-0.7 [facility] Immature Granulocyte # (Auto) 0.01 10 3/uL 0.00-0.03 [facility] Monoscreen Negative NEGATIVE [facility] Troponin I High Sensitivity 14.9 pg/mL 4.0-51.3 [facility] Comment on above: CUT-OFF POINTS [...] CLINICAL INFORMATION. 1.19 ng/dL 0.76-1.46 [facility] 2687.0 pg/mL High <=1800.0 [facility] 14.9 pg/mL 4.0-51.3 [facility] 4.487 u[iU]/mL High 0.358-3.740 [facility] Negative NEGATIVE [facility] 2.7 g/dL Low 3.4-5.0 [facility] 0.2 10 3/uL 0.0-0.7 [facility] 88 U/L 46-116 [facility] 20 U/L 14-59 [facility] 12 U/L Low 15-37 [facility] 25.6 [facility] 0.01 10 3/uL 0.00-0.03 [facility] 33.0 mg/dL High 7.0-18.0 [facility] 0.1 % 0.0-0.5 [facility] 8.9 mg/dL 8.5-10.1 [facility] 104 mmol/L 98-107 [facility] 26.7 mmol/L 21.0-32.0 [facility] 1.29 mg/dL High 0.55-1.02 [facility] 49 Low >=60 [facility] 233 mg/dL High 74-106 [facility] 4.0 mmol/L 3.5-5.1 [facility] 140 mmol/L 136-145 [facility] 0.5 mg/dL 0.2-1.0 [facility] 7.1 g/dL 6.4-8.2 [facility] Platelet mean volume Auto (B ld) [Entitic vol]on 05-26-2024 Platelet mean volume (Bld) [Entitic vol] 10.6 fL 9.5-13.5 [facility] Platelets Auto (Bld) [#/Vol] on 05-26-2024 Platelets (Bld) [#/Vol] 215 10 3/uL 150-450 [facility] RBC Auto (Bld) [#/Vol]on RBC (Bld) [#/Vol] 3.95 10 6/uL Low 4.20-5.40 [facility] Serum or plasma albumin/glob ulin mass ratioon 05-26-2024 Albumin/Globulin [Mass ratio] 0.6 {ratio} [facility] Serum or plasma anion gap de terminationon 05-26-2024 Anion gap [Moles/Vol] 13.3 mmol/L [facility] Estimated glomerular filtrat ion rate (GFR) non- Americanon 05-20-2024 GFR/1.73 sq M.predicted among non-blacks MDRD (S/P/Bld) [Vol rate/Area] 39 mL/min/{1.73_m2} Low >=60 [facility] Laboratory - Chemistry and C hemistry - challengeon 05-20-2024 Calcium [Mass/Vol] 8.8 mg/dL 8.5-10.1 [facility] Chloride [Moles/Vol] 103 mmol/L 98-107 [facility] CO2 [Moles/Vol] 24.3 mmol/L 21.0-32.0 [facility] Creatinine [Mass/Vol] 1.32 mg/dL High 0.55-1.02 [facility] GFR/1.73 sq M.predicted MDRD (S/P/Bld) [Vol rate/Area] 47 mL/min/{1.73_m2} Low >=60 [facility] Glucose [Mass/Vol] 243 mg/dL High 74-106 [facility] Potassium [Moles/Vol] 5.0 mmol/L 3.5-5.1 [facility] Sodium [Moles/Vol] 138 mmol/L 136-145 [facility] Urea nitrogen [Mass/Vol] 35.0 mg/dL High 7.0-18.0 [facility] Urea nitrogen/Creatinine [Mass ratio] 26.5 mg/mg [facility] No Panel Informationon 05-20 26.5 [facility] 35.0 mg/dL High 7.0-18.0 [facility] 8.8 mg/dL 8.5-10.1 [facility] 103 mmol/L 98-107 [facility] 24.3 mmol/L 21.0-32.0 [facility] 1.32 mg/dL High 0.55-1.02 [facility] 47 Low >=60 [facility] 243 mg/dL High 74-106 [facility] 5.0 mmol/L 3.5-5.1 [facility] 138 mmol/L 136-145 [facility] Serum or plasma anion gap de terminationon 05-20-2024 Anion gap [Moles/Vol] 15.7 [facility] Basophils Auto (Bld) [#/Vol] on 05-06-2024 Basophils (Bld) [#/Vol] 0.1 10 3/uL 0.0-0.1 [facility] Basophils/100 WBC Auto (Bld) on 05-06-2024 Basophils/100 WBC (Bld) 0.9 % 0.2-2.0 [facility] Eosinophils/100 WBC Auto (Bl d)on 05-06-2024 Eosinophils/100 WBC (Bld) 2.7 % 0.9-7.0 [facility] Erythrocyte distribution wid th Auto (RBC) [Ratio]on 05-06-2024 Erythrocyte distribution width (RBC) [Ratio] 13.5 % 11.0-15.0 [facility] Estimated glomerular filtrat ion rate (GFR) non- Americanon 05-06-2024 GFR/1.73 sq M.predicted among non-blacks MDRD (S/P/Bld) [Vol rate/Area] 32 mL/min/{1.73_m2} Low >=60 [facility] Globulin Calc (S) [Mass/Vol] on 05-06-2024 Globulin (S) [Mass/Vol] 4.3 g/dL [facility] Hematocrit Auto (Bld) [Volum e fraction]on 05-06-2024 Hematocrit (Bld) [Volume fraction] 34.6 % Low 36.0-48.0 [facility] Hemoglobin [Mass/volume] in Bloodon 05-06-2024 Hemoglobin (Bld) [Mass/Vol] 11.1 g/dL Low 12.0-16.0 [facility] Laboratory - Chemistry and C hemistry - challengeon 05-06-2024 Albumin [Mass/Vol] 2.5 g/dL Low 3.4-5.0 [facility] ALP [Catalytic activity/Vol] 75 U/L 46-116 [facility] ALT [Catalytic activity/Vol] 16 U/L 14-59 [facility] AST [Catalytic activity/Vol] 11 U/L Low 15-37 [facility] Bilirubin [Mass/Vol] 0.4 mg/dL 0.2-1.0 [facility] Calcium [Mass/Vol] 8.4 mg/dL Low 8.5-10.1 [facility] Chloride [Moles/Vol] 107 mmol/L 98-107 [facility] CO2 [Moles/Vol] 25.7 mmol/L 21.0-32.0 [facility] Creatinine [Mass/Vol] 1.58 mg/dL High 0.55-1.02 [facility] GFR/1.73 sq M.predicted MDRD (S/P/Bld) [Vol rate/Area] 38 mL/min/{1.73_m2} Low >=60 [facility] Glucose [Mass/Vol] 146 mg/dL High 74-106 [facility] Magnesium [Mass/Vol] 1.6 mg/dL Low 1.8-2.4 [facility] Natriuretic peptide B (Bld) [Mass/Vol] 2762.0 pg/mL High <=1800.0 [facility] Comment on above: RESULTS CALLED TO CLARTIZA SELLERS RN @BY Alla Venegas at 0557 Potassium [Moles/Vol] 4.1 mmol/L 3.5-5.1 [facility] Protein [Mass/Vol] 6.8 g/dL 6.4-8.2 [facility] Sodium [Moles/Vol] 141 mmol/L 136-145 [facility] Urea nitrogen [Mass/Vol] 49.0 mg/dL High 7.0-18.0 [facility] Urea nitrogen/Creatinine [Mass ratio] 31.0 mg/mg [facility] Laboratory - Hematology and Cell countson 05-06-2024 Immature granulocytes/100 WBC (Bld) 0.1 % 0.0-0.5 [facility] Leukocytes [#/volume] correc gali for nucleated erythrocytes in Blood by Automated counon 05-06-2024 WBC corrected for nucl RBC Auto (Bld) [#/Vol] 6.7 10 3/uL 4.0-11.0 [facility] Lymphocytes Auto (Bld) [#/Vo l]on 05-06-2024 Lymphocytes (Bld) [#/Vol] 1.5 10 3/uL 1.2-3.8 [facility] Lymphocytes/100 WBC Auto (Bl d)on 05-06-2024 Lymphocytes/100 WBC (Bld) 21.8 % 20.5-60.0 [facility] MCH Auto (RBC) [Entitic mass ]on 05-06-2024 MCH (RBC) [Entitic mass] 29.0 pg 26.7-34.0 [facility] MCHC Auto (RBC) [Mass/Vol]on 05-06-2024 MCHC (RBC) [Mass/Vol] 32.1 g/dL 29.9-35.2 [facility] MCV Auto (RBC) [Entitic vol] on 05-06-2024 MCV (RBC) [Entitic vol] 90.3 fL 81.0-99.0 [facility] Monocytes Auto (Bld) [#/Vol] on 05-06-2024 Monocytes (Bld) [#/Vol] 0.7 10 3/uL 0.3-0.8 [facility] Monocytes/100 WBC Auto (Bld) on 05-06-2024 Monocytes/100 WBC (Bld) 10.6 % 1.7-12.0 [facility] Neutrophils Auto (Bld) [#/Vo l]on 05-06-2024 Neutrophils (Bld) [#/Vol] 4.3 10 3/uL 1.4-6.5 [facility] Neutrophils/100 WBC Auto (Bl d)on 05-06-2024 Neutrophils/100 WBC (Bld) 63.9 % 43.0-75.0 [facility] No Panel Informationon 05-06 Eosinophils # (Auto) 0.2 10 3/uL 0.0-0.7 [facility] Immature Granulocyte # (Auto) 0.01 10 3/uL 0.00-0.03 [facility] Troponin I High Sensitivity 13.2 pg/mL 4.0-51.3 [facility] Comment on above: CUT-OFF POINTS [...] INFORMATION. 2762.0 pg/mL High <=1800.0 [facility] 13.2 pg/mL 4.0-51.3 [facility] 1.6 mg/dL Low 1.8-2.4 [facility] 2.5 g/dL Low 3.4-5.0 [facility] 0.2 10 3/uL 0.0-0.7 [facility] 75 U/L 46-116 [facility] 16 U/L 14-59 [facility] 11 U/L Low 15-37 [facility] 31.0 [facility] 0.01 10 3/uL 0.00-0.03 [facility] 49.0 mg/dL High 7.0-18.0 [facility] 0.1 % 0.0-0.5 [facility] 8.4 mg/dL Low 8.5-10.1 [facility] 107 mmol/L 98-107 [facility] 25.7 mmol/L 21.0-32.0 [facility] 1.58 mg/dL High 0.55-1.02 [facility] 38 Low >=60 [facility] 146 mg/dL High 74-106 [facility] 4.1 mmol/L 3.5-5.1 [facility] 141 mmol/L 136-145 [facility] 0.4 mg/dL 0.2-1.0 [facility] 6.8 g/dL 6.4-8.2 [facility] [facility] mean volume Auto (B ld) [Entitic vol]on 05-06-2024 Platelet mean volume (Bld) [Entitic vol] 11.3 fL 9.5-13.5 [facility] Platelets Auto (Bld) [#/Vol] on 05-06-2024 Platelets (Bld) [#/Vol] 146 10 3/uL Low 150-450 [facility] RBC Auto (Bld) [#/Vol]on RBC (Bld) [#/Vol] 3.83 10 6/uL Low 4.20-5.40 [facility] Serum or plasma albumin/glob ulin mass ratioon 05-06-2024 Albumin/Globulin [Mass ratio] 0.6 {ratio} [facility] Serum or plasma anion gap de terminationon 05-06-2024 Anion gap [Moles/Vol] 12.4 mmol/[facility] Basophils Auto (Bld) [#/Vol] on 05-05-2024 Basophils (Bld) [#/Vol] 0.1 10 3/uL 0.0-0.1 [facility] Basophils/100 WBC Auto (Bld) on 05-05-2024 Basophils/100 WBC (Bld) 0.9 % 0.2-2.0 [facility] Eosinophils/100 WBC Auto (Bl d)on 05-05-2024 Eosinophils/100 WBC (Bld) 1.9 % 0.9-7.0 [facility] Erythrocyte distribution wid th Auto (RBC) [Ratio]on 05-05-2024 Erythrocyte distribution width (RBC) [Ratio] 13.4 % 11.0-15.0 [facility] Estimated glomerular filtrat ion rate (GFR) non- Americanon 05-05-2024 GFR/1.73 sq M.predicted among non-blacks MDRD (S/P/Bld) [Vol rate/Area] 29 mL/min/{1.73_m2} Low >=60 [facility] Globulin Calc (S) [Mass/Vol] on 05-05-2024 Globulin (S) [Mass/Vol] 4.4 g/dL [facility] Hematocrit Auto (Bld) [Volum e fraction]on 05-05-2024 Hematocrit (Bld) [Volume fraction] 33.8 % Low 36.0-48.0 [facility] Hemoglobin [Mass/volume] in Bloodon 05-05-2024 Hemoglobin (Bld) [Mass/Vol] 11.1 g/dL Low 12.0-16.0 [facility] Laboratory - Chemistry and C hemistry - challengeon 05-05-2024 Albumin [Mass/Vol] 2.6 g/dL Low 3.4-5.0 [facility] ALP [Catalytic activity/Vol] 74 U/L 46-116 [facility] ALT [Catalytic activity/Vol] 17 U/L 14-59 [facility] AST [Catalytic activity/Vol] 12 U/L Low 15-37 [facility] Bilirubin [Mass/Vol] 0.4 mg/dL 0.2-1.0 [facility] Calcium [Mass/Vol] 6.1 mg/dL Low 8.5-10.1 [facility] Chloride [Moles/Vol] 105 mmol/L 98-107 [facility] CO2 [Moles/Vol] 24.1 mmol/L 21.0-32.0 [facility] Creatinine [Mass/Vol] 1.71 mg/dL High 0.55-1.02 [facility] GFR/1.73 sq M.predicted MDRD (S/P/Bld) [Vol rate/Area] 35 mL/min/{1.73_m2} Low >=60 [facility] Glucose [Mass/Vol] 202 mg/dL High 74-106 [facility] Magnesium [Mass/Vol] 1.5 mg/dL Low 1.8-2.4 [facility] Natriuretic peptide B (Bld) [Mass/Vol] 2725.0 pg/mL High <=1800.0 [facility] Comment on above: RESULTS CALLED TO Frances Mckinnon)@BY Franchesca Huynh MLT at 0547 Potassium [Moles/Vol] 5.9 mmol/L High 3.5-5.1 [facility] Protein [Mass/Vol] 7.0 g/dL 6.4-8.2 [facility] Sodium [Moles/Vol] 139 mmol/L 136-145 [facility] Urea nitrogen [Mass/Vol] 69.0 mg/dL High 7.0-18.0 [facility] Urea nitrogen/Creatinine [Mass ratio] 40.4 mg/mg [facility] Laboratory - Hematology and Cell countson 05-05-2024 Immature granulocytes/100 WBC (Bld) 0.3 % 0.0-0.5 [facility] Leukocytes [#/volume] correc gali for nucleated erythrocytes in Blood by Automated counon 05-05-2024 WBC corrected for nucl RBC Auto (Bld) [#/Vol] 6.9 10 3/uL 4.0-11.0 [facility] Lymphocytes Auto (Bld) [#/Vo l]on 05-05-2024 Lymphocytes (Bld) [#/Vol] 1.2 10 3/uL 1.2-3.8 [facility] Lymphocytes/100 WBC Auto (Bl d)on 05-05-2024 Lymphocytes/100 WBC (Bld) 18.0 % Low 20.5-60.0 [facility] MCH Auto (RBC) [Entitic mass ]on 05-05-2024 MCH (RBC) [Entitic mass] 29.3 pg 26.7-34.0 [facility] MCHC Auto (RBC) [Mass/Vol]on 05-05-2024 MCHC (RBC) [Mass/Vol] 32.8 g/dL 29.9-35.2 [facility] MCV Auto (RBC) [Entitic vol] on 05-05-2024 MCV (RBC) [Entitic vol] 89.2 fL 81.0-99.0 [facility] Monocytes Auto (Bld) [#/Vol] on 05-05-2024 Monocytes (Bld) [#/Vol] 0.6 10 3/uL 0.3-0.8 [facility] Monocytes/100 WBC Auto (Bld) on 05-05-2024 Monocytes/100 WBC (Bld) 8.7 % 1.7-12.0 [facility] Neutrophils Auto (Bld) [#/Vo l]on 05-05-2024 Neutrophils (Bld) [#/Vol] 4.8 10 3/uL 1.4-6.5 [facility] Neutrophils/100 WBC Auto (Bl d)on 05-05-2024 Neutrophils/100 WBC (Bld) 70.2 % 43.0-75.0 [facility] No Panel Informationon 05-05 Eosinophils # (Auto) 0.1 10 3/uL 0.0-0.7 [facility] Immature Granulocyte # (Auto) 0.02 10 3/uL 0.00-0.03 [facility] Troponin I High Sensitivity 14.0 pg/mL 4.0-51.3 [facility] Comment on above: CUT-OFF POINTS [...] INFORMATION. 2725.0 pg/mL High <=1800.0 [facility] 14.0 pg/mL 4.0-51.3 [facility] 1.5 mg/dL Low 1.8-2.4 [facility] 2.6 g/dL Low 3.4-5.0 [facility] 0.1 10 3/uL 0.0-0.7 [facility] 74 U/L 46-116 [facility] 17 U/L 14-59 [facility] 12 U/L Low 15-37 [facility] 40.4 [facility] 0.02 10 3/uL 0.00-0.03 [facility] 69.0 mg/dL High 7.0-18.0 [facility] 0.3 % 0.0-0.5 [facility] 6.1 mg/dL Low 8.5-10.1 [facility] 105 mmol/L 98-107 [facility] 24.1 mmol/L 21.0-32.0 [facility] 1.71 mg/dL High 0.55-1.02 [facility] 35 Low >=60 [facility] 202 mg/dL High 74-106 [facility] 5.9 mmol/L High 3.5-5.1 [facility] 139 mmol/L 136-145 [facility] 0.4 mg/dL 0.2-1.0 [facility] 7.0 g/dL 6.4-8.2 [facility] Platelet mean volume Auto (B ld) [Entitic vol]on 05-05-2024 Platelet mean volume (Bld) [Entitic vol] 11.8 fL 9.5-13.5 [facility] Platelets Auto (Bld) [#/Vol] on 05-05-2024 Platelets (Bld) [#/Vol] 173 10 3/uL 150-450 [facility] RBC Auto (Bld) [#/Vol]on RBC (Bld) [#/Vol] 3.79 10 6/uL Low 4.20-5.40 [facility] Serum or plasma albumin/glob ulin mass ratioon 05-05-2024 Albumin/Globulin [Mass ratio] 0.6 {ratio} [facility] Serum or plasma anion gap de terminationon 05-05-2024 Anion gap [Moles/Vol] 15.8 mmol/L [facility] Basophils Auto (Bld) [#/Vol] on 05-04-2024 Basophils (Bld) [#/Vol] 0.1 10 3/uL 0.0-0.1 [facility] Basophils/100 WBC Auto (Bld) on 05-04-2024 Basophils/100 WBC (Bld) 0.9 % 0.2-2.0 [facility] Eosinophils/100 WBC Auto (Bl d)on 05-04-2024 Eosinophils/100 WBC (Bld) 1.7 % 0.9-7.0 [facility] Erythrocyte distribution wid th Auto (RBC) [Ratio]on 05-04-2024 Erythrocyte distribution width (RBC) [Ratio] 13.6 % 11.0-15.0 [facility] Estimated glomerular filtrat ion rate (GFR) non- Americanon 05-04-2024 GFR/1.73 sq M.predicted among non-blacks MDRD (S/P/Bld) [Vol rate/Area] 21 mL/min/{1.73_m2} Low >=60 [facility] Globulin Calc (S) [Mass/Vol] on 05-04-2024 Globulin (S) [Mass/Vol] 4.9 g/dL [facility] Hematocrit Auto (Bld) [Volum e fraction]on 05-04-2024 Hematocrit (Bld) [Volume fraction] 37.6 % 36.0-48.0 [facility] Hemoglobin [Mass/volume] in Bloodon 05-04-2024 Hemoglobin (Bld) [Mass/Vol] 12.0 g/dL 12.0-16.0 [facility] Laboratory - Chemistry and C hemistry - challengeon 05-04-2024 Bilirubin Ql (U) Negative NEGATIVE [facility] Glucose (U) [Mass/Vol] 250 mg/dL Abnormal NEGATIVE [facility] Ketones Ql (U) Negative NEGATIVE [facility] pH (U) 6.0 [pH] 5.0-9.0 [facility] Specific gravity (U) [Rel density] 1.015 1.005-1.025 [facility] Urobilinogen Qn (U) 0.2 {Meka'U}/dL 0.2-1.0 [facility] Albumin [Mass/Vol] 2.8 g/dL Low 3.4-5.0 [facility] ALP [Catalytic activity/Vol] 86 U/L 46-116 [facility] ALT [Catalytic activity/Vol] 16 U/L 14-59 [facility] Ammonia (P) [Moles/Vol] 12 umol/L 11-32 [facility] AST [Catalytic activity/Vol] 8 U/L Low 15-37 [facility] Bilirubin [Mass/Vol] 0.4 mg/dL 0.2-1.0 [facility] Calcium [Mass/Vol] 8.8 mg/dL 8.5-10.1 [facility] Chloride [Moles/Vol] 101 mmol/L 98-107 [facility] CO2 [Moles/Vol] 22.4 mmol/L 21.0-32.0 [facility] Creatinine [Mass/Vol] 2.24 mg/dL High 0.55-1.02 [facility] GFR/1.73 sq M.predicted MDRD (S/P/Bld) [Vol rate/Area] 26 mL/min/{1.73_m2} Low >=60 [facility] Glucose [Mass/Vol] 369 mg/dL High 74-106 [facility] Lactate [Moles/Vol] 1.2 mmol/L 0.4-2.0 [facility] Magnesium [Mass/Vol] 1.7 mg/dL Low 1.8-2.4 [facility] Natriuretic peptide B (Bld) [Mass/Vol] 2342.0 pg/mL High <=1800.0 [facility] Comment on above: RESULTS CALLED TO RENETTA Renteria RN @BY Andrea Long MLTat 1126 Potassium [Moles/Vol] 5.6 mmol/L High 3.5-5.1 [facility] Protein [Mass/Vol] 7.7 g/dL 6.4-8.2 [facility] Sodium [Moles/Vol] 134 mmol/L Low 136-145 [facility] T4 [Mass/Vol] 11.80 ug/dL 4.80-13.90 [facility] TSH Qn 0.933 m[IU]/L 0.358-3.740 [facility] Urea nitrogen [Mass/Vol] 86.0 mg/dL High 7.0-18.0 [facility] Comment on above: RESULTS CALLED TO RENETTA Renteria RN @BY Andrea Long MLTat 1126 Urea nitrogen/Creatinine [Mass ratio] 38.4 mg/mg [facility] Laboratory - Hematology and Cell countson 05-04-2024 Immature granulocytes/100 WBC (Bld) 0.3 % 0.0-0.5 [facility] Laboratory - Microbiology an d Antimicrobial susceptibilityOrdered By: Carl Morales on 05-04-2024 Bacteria identified Cx Nom (U) [facility] Laboratory - Specimen inform ationon 05-04-2024 Appearance (U) SLIGHTLY CLOUDY Abnormal CLEAR [facility] Color (U) YELLOW YELLOW [facility] Laboratory - Urinalysison Hyaline casts LM Ql (Urine sed) RARE [facility] Leukocyte esterase Test strip Ql (U) Negative NEGATIVE [facility] Mucus Ql (Urine sed) NONE SEEN NONE SEEN [facility] Nitrite Ql (U) Negative NEGATIVE [facility] Protein Ql (U) 100 mg/dL Abnormal NEG/TRACE [facility] Leukocytes [#/volume] correc gali for nucleated erythrocytes in Blood by Automated counon 05-04-2024 WBC corrected for nucl RBC Auto (Bld) [#/Vol] 6.9 10 3/uL 4.0-11.0 [facility] Lymphocytes Auto (Bld) [#/Vo l]on 05-04-2024 Lymphocytes (Bld) [#/Vol] 1.2 10 3/uL 1.2-3.8 [facility] Lymphocytes/100 WBC Auto (Bl d)on 05-04-2024 Lymphocytes/100 WBC (Bld) 17.8 % Low 20.5-60.0 [facility] MCH Auto (RBC) [Entitic mass ]on 05-04-2024 MCH (RBC) [Entitic mass] 29.3 pg 26.7-34.0 [facility] MCHC Auto (RBC) [Mass/Vol]on 05-04-2024 MCHC (RBC) [Mass/Vol] 31.9 g/dL 29.9-35.2 [facility] MCV Auto (RBC) [Entitic vol] on 05-04-2024 MCV (RBC) [Entitic vol] 91.9 fL 81.0-99.0 [facility] Monocytes Auto (Bld) [#/Vol] on 05-04-2024 Monocytes (Bld) [#/Vol] 0.7 10 3/uL 0.3-0.8 [facility] Monocytes/100 WBC Auto (Bld) on 05-04-2024 Monocytes/100 WBC (Bld) 10.4 % 1.7-12.0 [facility] Neutrophils Auto (Bld) [#/Vo l]on 05-04-2024 Neutrophils (Bld) [#/Vol] 4.8 10 3/uL 1.4-6.5 [facility] Neutrophils/100 WBC Auto (Bl d)on 05-04-2024 Neutrophils/100 WBC (Bld) 68.9 % 43.0-75.0 [facility] No Panel Informationon 05-04 Acetone Level Negative NEGATIVE [facility] Negative NEGATIVE [facility] Urine Bacteria MODERATE #/HPF Abnormal NONE SEEN [facility] Urine Culture Reflexed ALREADY ORDERED [facility] Urine Microscopic Review YES [facility] Urine Occult Blood MODERATE Abnormal NEGATIVE [facility] Urine Other Casts SEEN #/LPF Abnormal NONE SEEN [facility] Urine Other Crystals None Seen #/HPF None Seen [facility] Urine RBC 2-5 #/HPF Abnormal 0-2 [facility] Urine Squamous Epithelial Cells FEW #/LPF Abnormal NONE/RARE [facility] Urine WBC 2-5 #/HPF Abnormal NONE SEEN [facility] ALREADY ORDERED [facility] YES [facility] SEEN #/LPF Abnormal NONE SEEN [facility] Negative NEGATIVE [facility] None Seen #/HPF None Seen [facility] MODERATE Abnormal NEGATIVE [facility] MODERATE #/HPF Abnormal NONE SEEN [facility] SLIGHTLY CLOUDY Abnormal CLEAR [facility] RARE [facility] YELLOW YELLOW [facility] NONE SEEN NONE SEEN [facility] 250 mg/dL Abnormal NEGATIVE [facility] 2-5 #/HPF Abnormal NONE SEEN [facility] FEW #/LPF Abnormal NONE/[facility] 6.0 5.0-9.0 [facility] 100 mg/dL Abnormal NEG/TRACE [facility] 1.015 1.005-1.025 [facility] 0.2 EU/dL 0.2-1.0 [facility] Eosinophils # (Auto) 0.1 10 3/uL 0.0-0.7 [facility] Immature Granulocyte # (Auto) 0.02 10 3/uL 0.00-0.03 [facility] Troponin I High Sensitivity 10.5 pg/mL 4.0-51.3 [facility] Comment on above: CUT-OFF POINTS [...] CO2 38.5 mm[Hg] Low 40.0-52.0 [facility] Venous Blood pH 7.353 7.330-7.430 [facility] 0.933 u[iU]/mL 0.358-3.740 [facility] 11.80 ug/dL 4.80-13.90 [facility] 1.7 mg/dL Low 1.8-2.4 [facility] 2342.0 pg/mL High <=1800.0 [facility] 1.2 mmol/L 0.4-2.0 [facility] 10.5 pg/mL 4.0-51.3 [facility] 12 umol/L 11-32 [facility] 38.5 mm[Hg] Low 40.0-52.0 [facility] 7.353 7.330-7.430 [facility] 2.8 g/dL Low 3.4-5.0 [facility] 0.1 10 3/uL 0.0-0.7 [facility] 86 U/L 46-116 [facility] 16 U/L 14-59 [facility] 8 U/L Low 15-37 [facility] 38.4 [facility] 0.02 10 3/uL 0.00-0.03 [facility] 86.0 mg/dL High 7.0-18.0 [facility] 0.3 % 0.0-0.5 [facility] 8.8 mg/dL 8.5-10.1 [facility] 101 mmol/L 98-107 [facility] 22.4 mmol/L 21.0-32.0 [facility] 2.24 mg/dL High 0.55-1.02 [facility] 26 Low >=60 [facility] 369 mg/dL High 74-106 [facility] 5.6 mmol/L High 3.5-5.1 [facility] 134 mmol/L Low 136-145 [facility] 0.4 mg/dL 0.2-1.0 [facility] 7.7 g/dL 6.4-8.2 [facility] No Panel InformationOrdered By: LAMINE SINGH on 05-04-2024 Blood Culture 1 [facility] Platelet mean volume Auto (B ld) [Entitic vol]on 05-04-2024 Platelet mean volume (Bld) [Entitic vol] 11.4 fL 9.5-13.5 [facility] Platelets Auto (Bld) [#/Vol] on 05-04-2024 Platelets (Bld) [#/Vol] 160 10 3/uL 150-450 [facility] RBC Auto (Bld) [#/Vol]on RBC (Bld) [#/Vol] 4.09 10 6/uL Low 4.20-5.40 [facility] Serum or plasma albumin/glob ulin mass ratioon 05-04-2024 Albumin/Globulin [Mass ratio] 0.6 {ratio} [facility] Serum or plasma anion gap de terminationon 05-04-2024 Anion gap [Moles/Vol] 16.2 mmol/L [facility] Basophils Auto (Bld) [#/Vol] on 05-01-2024 Basophils (Bld) [#/Vol] 0.1 10 3/uL 0.0-0.1 [facility] Basophils/100 WBC Auto (Bld) on 05-01-2024 Basophils/100 WBC (Bld) 0.7 % 0.2-2.0 [facility] Eosinophils/100 WBC Auto (Bl d)on 05-01-2024 Eosinophils/100 WBC (Bld) 2.3 % 0.9-7.0 [facility] Erythrocyte distribution wid th Auto (RBC) [Ratio]on 05-01-2024 Erythrocyte distribution width (RBC) [Ratio] 13.6 % 11.0-15.0 [facility] Estimated glomerular filtrat ion rate (GFR) non- Americanon 05-01-2024 GFR/1.73 sq M.predicted among non-blacks MDRD (S/P/Bld) [Vol rate/Area] 22 mL/min/{1.73_m2} Low >=60 [facility] Globulin Calc (S) [Mass/Vol] on 05-01-2024 Globulin (S) [Mass/Vol] 4.4 g/dL [facility] Hematocrit Auto (Bld) [Volum e fraction]on 05-01-2024 Hematocrit (Bld) [Volume fraction] 37.5 % 36.0-48.0 [facility] Hemoglobin [Mass/volume] in Bloodon 05-01-2024 Hemoglobin (Bld) [Mass/Vol] 12.1 g/dL 12.0-16.0 [facility] Laboratory - Chemistry and C hemistry - challengeon 05-01-2024 Calcium [Mass/Vol] 9.2 mg/dL 8.5-10.1 [facility] Chloride [Moles/Vol] 104 mmol/L 98-107 [facility] CO2 [Moles/Vol] 23.2 mmol/L 21.0-32.0 [facility] Creatinine [Mass/Vol] 2.14 mg/dL High 0.55-1.02 [facility] GFR/1.73 sq M.predicted MDRD (S/P/Bld) [Vol rate/Area] 27 mL/min/{1.73_m2} Low >=60 [facility] Glucose [Mass/Vol] 220 mg/dL High 74-106 [facility] Potassium [Moles/Vol] 5.3 mmol/L High 3.5-5.1 [facility] Sodium [Moles/Vol] 134 mmol/L Low 136-145 [facility] Urea nitrogen [Mass/Vol] 87.0 mg/dL High 7.0-18.0 [facility] Comment on above: RESULTS CALLED TO Klaus Michaels RN @BY Sury French [id number] Urea nitrogen/Creatinine [Mass ratio] 40.7 mg/mg [facility] Albumin [Mass/Vol] 2.8 g/dL Low 3.4-5.0 [facility] ALP [Catalytic activity/Vol] 80 U/L 46-116 [facility] ALT [Catalytic activity/Vol] 16 U/L 14-59 [facility] AST [Catalytic activity/Vol] 11 U/L Low 15-37 [facility] Bilirubin [Mass/Vol] 0.4 mg/dL 0.2-1.0 [facility] Natriuretic peptide B (Bld) [Mass/Vol] 1624.0 pg/mL <=1800.0 [facility] Protein [Mass/Vol] 7.2 g/dL 6.4-8.2 [facility] Laboratory - Hematology and Cell countson 05-01-2024 Immature granulocytes/100 WBC (Bld) 0.1 % 0.0-0.5 [facility] Leukocytes [#/volume] correc gali for nucleated erythrocytes in Blood by Automated counon 05-01-2024 WBC corrected for nucl RBC Auto (Bld) [#/Vol] 7.4 10 3/uL 4.0-11.0 [facility] Lymphocytes Auto (Bld) [#/Vo l]on 05-01-2024 Lymphocytes (Bld) [#/Vol] 2.2 10 3/uL 1.2-3.8 [facility] Lymphocytes/100 WBC Auto (Bl d)on 05-01-2024 Lymphocytes/100 WBC (Bld) 29.4 % 20.5-60.0 [facility] MCH Auto (RBC) [Entitic mass ]on 05-01-2024 MCH (RBC) [Entitic mass] 29.2 pg 26.7-34.0 [facility] MCHC Auto (RBC) [Mass/Vol]on 05-01-2024 MCHC (RBC) [Mass/Vol] 32.3 g/dL 29.9-35.2 [facility] MCV Auto (RBC) [Entitic vol] on 05-01-2024 MCV (RBC) [Entitic vol] 90.4 fL 81.0-99.0 [facility] Monocytes Auto (Bld) [#/Vol] on 05-01-2024 Monocytes (Bld) [#/Vol] 0.9 10 3/uL High 0.3-0.8 [facility] Monocytes/100 WBC Auto (Bld) on 05-01-2024 Monocytes/100 WBC (Bld) 11.5 % 1.7-12.0 [facility] Neutrophils Auto (Bld) [#/Vo l]on 05-01-2024 Neutrophils (Bld) [#/Vol] 4.1 10 3/uL 1.4-6.5 [facility] Neutrophils/100 WBC Auto (Bl d)on 05-01-2024 Neutrophils/100 WBC (Bld) 56.0 % 43.0-75.0 [facility] No Panel Informationon 05-01 40.7 [facility] 87.0 mg/dL High 7.0-18.0 [facility] 9.2 mg/dL 8.5-10.1 [facility] 104 mmol/L 98-107 [facility] 23.2 mmol/L 21.0-32.0 [facility] 2.14 mg/dL High 0.55-1.02 [facility] 27 Low >=60 [facility] 220 mg/dL High 74-106 [facility] 5.3 mmol/L High 3.5-5.1 [facility] 134 mmol/L Low 136-145 [facility] Eosinophils # (Auto) 0.2 10 3/uL 0.0-0.7 [facility] Immature Granulocyte # (Auto) 0.01 10 3/uL 0.00-0.03 [facility] 1624.0 pg/mL <=1800.0 [facility] 2.8 g/dL Low 3.4-5.0 [facility] 0.2 10 3/uL 0.0-0.7 [facility] 80 U/L 46-116 [facility] 16 U/L 14-59 [facility] 11 U/L Low 15-37 [facility] 0.01 10 3/uL 0.00-0.03 [facility] 0.1 % 0.0-0.5 [facility] 0.4 mg/dL 0.2-1.0 [facility] 7.2 g/dL 6.4-8.2 [facility] Platelet mean volume Auto (B ld) [Entitic vol]on 05-01-2024 Platelet mean volume (Bld) [Entitic vol] 11.6 fL 9.5-13.5 [facility] Platelets Auto (Bld) [#/Vol] on 05-01-2024 Platelets (Bld) [#/Vol] 151 10 3/uL 150-450 [facility] RBC Auto (Bld) [#/Vol]on RBC (Bld) [#/Vol] 4.15 10 6/uL Low 4.20-5.40 [facility] Serum or plasma albumin/glob ulin mass ratioon 05-01-2024 Albumin/Globulin [Mass ratio] 0.6 {ratio} [facility] Serum or plasma anion gap de terminationon 05-01-2024 Anion gap [Moles/Vol] 12.1 mmol/L [facility] Basophils Auto (Bld) [#/Vol] on 04-30-2024 Basophils (Bld) [#/Vol] 0.1 10 3/uL 0.0-0.1 [facility] Basophils/100 WBC Auto (Bld) on 04-30-2024 Basophils/100 WBC (Bld) 0.9 % 0.2-2.0 [facility] Eosinophils/100 WBC Auto (Bl d)on 04-30-2024 Eosinophils/100 WBC (Bld) 2.4 % 0.9-7.0 [facility] Erythrocyte distribution wid th Auto (RBC) [Ratio]on 04-30-2024 Erythrocyte distribution width (RBC) [Ratio] 13.5 % 11.0-15.0 [facility] Estimated glomerular filtrat ion rate (GFR) non- Americanon 04-30-2024 GFR/1.73 sq M.predicted among non-blacks MDRD (S/P/Bld) [Vol rate/Area] 15 mL/min/{1.73_m2} Low >=60 [facility] Fibrin D-dimer [Presence] in Platelet poor plasma by Latex agglutinationon 04-30-2024 Fibrin D-dimer LA Ql (PPP) 0.24 mg/L FEU <=0.59 [facility] Comment on above: Increases in [...] [Volume fraction] 38.6 % 36.0-48.0 [facility] Hemoglobin [Mass/volume] in Bloodon 04-30-2024 Hemoglobin (Bld) [Mass/Vol] 12.5 g/dL 12.0-16.0 [facility] Laboratory - Chemistry and C hemistry - challengeon 04-30-2024 Calcium [Mass/Vol] 9.0 mg/dL 8.5-10.1 [facility] Chloride [Moles/Vol] 100 mmol/L 98-107 [facility] CO2 [Moles/Vol] 24.4 mmol/L 21.0-32.0 [facility] Creatinine [Mass/Vol] 3.02 mg/dL High 0.55-1.02 [facility] GFR/1.73 sq M.predicted MDRD (S/P/Bld) [Vol rate/Area] 18 mL/min/{1.73_m2} Low >=60 [facility] Glucose [Mass/Vol] 271 mg/dL High 74-106 [facility] Magnesium [Mass/Vol] 1.8 mg/dL 1.8-2.4 [facility] Natriuretic peptide B (Bld) [Mass/Vol] 1485.0 pg/mL <=1800.0 [facility] Potassium [Moles/Vol] 5.3 mmol/L High 3.5-5.1 [facility] Sodium [Moles/Vol] 133 mmol/L Low 136-145 [facility] Urea nitrogen [Mass/Vol] 99.0 mg/dL High 7.0-18.0 [facility] Comment on above: RESULTS CALLED TO Yoel WADE)@BY Franchesca Huynh MLT at 0603 Urea nitrogen/Creatinine [Mass ratio] 32.8 mg/mg [facility] Laboratory - Hematology and Cell countson 04-30-2024 Immature granulocytes/100 WBC (Bld) 0.1 % 0.0-0.5 [facility] Leukocytes [#/volume] correc gali for nucleated erythrocytes in Blood by Automated counon 04-30-2024 WBC corrected for nucl RBC Auto (Bld) [#/Vol] 7.5 10 3/uL 4.0-11.0 [facility] Lymphocytes Auto (Bld) [#/Vo l]on 04-30-2024 Lymphocytes (Bld) [#/Vol] 2.1 10 3/uL 1.2-3.8 [facility] Lymphocytes/100 WBC Auto (Bl d)on 04-30-2024 Lymphocytes/100 WBC (Bld) 27.8 % 20.5-60.0 [facility] MCH Auto (RBC) [Entitic mass ]on 04-30-2024 MCH (RBC) [Entitic mass] 29.6 pg 26.7-34.0 [facility] MCHC Auto (RBC) [Mass/Vol]on 04-30-2024 MCHC (RBC) [Mass/Vol] 32.4 g/dL 29.9-35.2 [facility] MCV Auto (RBC) [Entitic vol] on 04-30-2024 MCV (RBC) [Entitic vol] 91.5 fL 81.0-99.0 [facility] Monocytes Auto (Bld) [#/Vol] on 04-30-2024 Monocytes (Bld) [#/Vol] 0.8 10 3/uL 0.3-0.8 [facility] Monocytes/100 WBC Auto (Bld) on 04-30-2024 Monocytes/100 WBC (Bld) 10.0 % 1.7-12.0 [facility] Neutrophils Auto (Bld) [#/Vo l]on 04-30-2024 Neutrophils (Bld) [#/Vol] 4.4 10 3/uL 1.4-6.5 [facility] Neutrophils/100 WBC Auto (Bl d)on 04-30-2024 Neutrophils/100 WBC (Bld) 58.8 % 43.0-75.0 [facility] No Panel Informationon 04-30 Troponin I High Sensitivity 12.6 pg/mL 4.0-51.3 [facility] Comment on above: CUT-OFF POINTS [...] CLINICAL INFORMATION. 1.8 mg/dL 1.8-2.4 [facility] 1485.0 pg/mL <=1800.0 [facility] 12.6 pg/mL 4.0-51.3 [facility] 32.8 [facility] 99.0 mg/dL High 7.0-18.0 [facility] 9.0 mg/dL 8.5-10.1 [facility] 100 mmol/L 98-107 [facility] 24.4 mmol/L 21.0-32.0 [facility] 3.02 mg/dL High 0.55-1.02 [facility] 18 Low >=60 [facility] 271 mg/dL High 74-106 [facility] 5.3 mmol/L High 3.5-5.1 [facility] 133 mmol/L Low 136-145 [facility] Eosinophils # (Auto) 0.2 10 3/uL 0.0-0.7 [facility] Immature Granulocyte # (Auto) 0.01 10 3/uL 0.00-0.03 [facility] 0.2 10 3/uL 0.0-0.7 [facility] 0.01 10 3/uL 0.00-0.03 [facility] 0.1 % 0.0-0.5 [facility] Platelet mean volume Auto (B ld) [Entitic vol]on 04-30-2024 Platelet mean volume (Bld) [Entitic vol] 12.2 fL 9.5-13.5 [facility] Platelets Auto (Bld) [#/Vol] on 04-30-2024 Platelets (Bld) [#/Vol] 221 10 3/uL 150-450 [facility] RBC Auto (Bld) [#/Vol]on RBC (Bld) [#/Vol] 4.22 10 6/uL 4.20-5.40 [facility] Serum or plasma anion gap de terminationon 04-30-2024 Anion gap [Moles/Vol] 13.9 mmol/L [facility] Basophils Auto (Bld) [#/Vol] on 03-28-2024 Basophils (Bld) [#/Vol] 0.1 10 3/uL 0.0-0.1 [facility] Basophils/100 WBC Auto (Bld) on 03-28-2024 Basophils/100 WBC (Bld) 0.9 % 0.2-2.0 [facility] Eosinophils/100 WBC Auto (Bl d)on 03-28-2024 Eosinophils/100 WBC (Bld) 1.7 % 0.9-7.0 [facility] Erythrocyte distribution wid th Auto (RBC) [Ratio]on 03-28-2024 Erythrocyte distribution width (RBC) [Ratio] 14.2 % 11.0-15.0 [facility] Estimated glomerular filtrat ion rate (GFR) non- Americanon 03-28-2024 GFR/1.73 sq M.predicted among non-blacks MDRD (S/P/Bld) [Vol rate/Area] 39 mL/min/{1.73_m2} Low >=60 [facility] Globulin Calc (S) [Mass/Vol] on 03-28-2024 Globulin (S) [Mass/Vol] 4.8 g/dL [facility] Hematocrit Auto (Bld) [Volum e fraction]on 03-28-2024 Hematocrit (Bld) [Volume fraction] 40.0 % 36.0-48.0 [facility] Hemoglobin [Mass/volume] in Bloodon 03-28-2024 Hemoglobin (Bld) [Mass/Vol] 12.6 g/dL 12.0-16.0 [facility] Laboratory - Chemistry and C hemistry - challengeon 03-28-2024 Albumin [Mass/Vol] 2.5 g/dL Low 3.4-5.0 [facility] ALP [Catalytic activity/Vol] 93 U/L 46-116 [facility] ALT [Catalytic activity/Vol] 9 U/L Low 14-59 [facility] AST [Catalytic activity/Vol] 10 U/L Low 15-37 [facility] Bilirubin [Mass/Vol] 0.9 mg/dL 0.2-1.0 [facility] Calcium [Mass/Vol] 8.5 mg/dL 8.5-10.1 [facility] Chloride [Moles/Vol] 96 mmol/L Low 98-107 [facility] CO2 [Moles/Vol] 27.1 mmol/L 21.0-32.0 [facility] Creatinine [Mass/Vol] 1.33 mg/dL High 0.55-1.02 [facility] GFR/1.73 sq M.predicted MDRD (S/P/Bld) [Vol rate/Area] 47 mL/min/{1.73_m2} Low >=60 [facility] Glucose [Mass/Vol] 261 mg/dL High 74-106 [facility] Magnesium [Mass/Vol] 1.8 mg/dL 1.8-2.4 [facility] Natriuretic peptide B (Bld) [Mass/Vol] 3338.0 pg/mL High <=1800.0 [facility] Comment on above: RESULTS CALLED TO Claritza Sellers (RN)@BY Franchesca Huynh MLT at 0554 Potassium [Moles/Vol] 3.8 mmol/L 3.5-5.1 [facility] Protein [Mass/Vol] 7.3 g/dL 6.4-8.2 [facility] Sodium [Moles/Vol] 133 mmol/L Low 136-145 [facility] Urea nitrogen [Mass/Vol] 36.0 mg/dL High 7.0-18.0 [facility] Urea nitrogen/Creatinine [Mass ratio] 27.1 mg/mg [facility] Laboratory - Hematology and Cell countson 03-28-2024 Immature granulocytes/100 WBC (Bld) 0.4 % 0.0-0.5 [facility] Leukocytes [#/volume] correc gali for nucleated erythrocytes in Blood by Automated counon 03-28-2024 WBC corrected for nucl RBC Auto (Bld) [#/Vol] 8.4 10 3/uL 4.0-11.0 [facility] Lymphocytes Auto (Bld) [#/Vo l]on 03-28-2024 Lymphocytes (Bld) [#/Vol] 1.8 10 3/uL 1.2-3.8 [facility] Lymphocytes/100 WBC Auto (Bl d)on 03-28-2024 Lymphocytes/100 WBC (Bld) 21.4 % 20.5-60.0 [facility] MCH Auto (RBC) [Entitic mass ]on 03-28-2024 MCH (RBC) [Entitic mass] 29.0 pg 26.7-34.0 [facility] MCHC Auto (RBC) [Mass/Vol]on 03-28-2024 MCHC (RBC) [Mass/Vol] 31.5 g/dL 29.9-35.2 [facility] MCV Auto (RBC) [Entitic vol] on 03-28-2024 MCV (RBC) [Entitic vol] 92.0 fL 81.0-99.0 [facility] Monocytes Auto (Bld) [#/Vol] on 03-28-2024 Monocytes (Bld) [#/Vol] 0.8 10 3/uL 0.3-0.8 [facility] Monocytes/100 WBC Auto (Bld) on 03-28-2024 Monocytes/100 WBC (Bld) 9.7 % 1.7-12.0 [facility] Neutrophils Auto (Bld) [#/Vo l]on 03-28-2024 Neutrophils (Bld) [#/Vol] 5.6 10 3/uL 1.4-6.5 [facility] Neutrophils/100 WBC Auto (Bl d)on 03-28-2024 Neutrophils/100 WBC (Bld) 65.9 % 43.0-75.0 [facility] No Panel Informationon 03-28 Eosinophils # (Auto) 0.1 10 3/uL 0.0-0.7 [facility] Immature Granulocyte # (Auto) 0.03 10 3/uL 0.00-0.03 [facility] 3338.0 pg/mL High <=1800.0 [facility] 1.8 mg/dL 1.8-2.4 [facility] 2.5 g/dL Low 3.4-5.0 [facility] 0.1 10 3/uL 0.0-0.7 [facility] 93 U/L 46-116 [facility] 9 U/L Low 14-59 [facility] 10 U/L Low 15-37 [facility] 27.1 [facility] 0.03 10 3/uL 0.00-0.03 [facility] 36.0 mg/dL High 7.0-18.0 [facility] 0.4 % 0.0-0.5 [facility] 8.5 mg/dL 8.5-10.1 [facility] 96 mmol/L Low 98-107 [facility] 27.1 mmol/L 21.0-32.0 [facility] 1.33 mg/dL High 0.55-1.02 [facility] 47 Low >=60 [facility] 261 mg/dL High 74-106 [facility] 3.8 mmol/L 3.5-5.1 [facility] 133 mmol/L Low 136-145 [facility] 0.9 mg/dL 0.2-1.0 [facility] 7.3 g/dL 6.4-8.2 [facility] Platelet mean volume Auto (B ld) [Entitic vol]on 03-28-2024 Platelet mean volume (Bld) [Entitic vol] 10.5 fL 9.5-13.5 [facility] Platelets Auto (Bld) [#/Vol] on 03-28-2024 Platelets (Bld) [#/Vol] 197 10 3/uL 150-450 [facility] RBC Auto (Bld) [#/Vol]on RBC (Bld) [#/Vol] 4.35 10 6/uL 4.20-5.40 [facility] Serum or plasma albumin/glob ulin mass ratioon 03-28-2024 Albumin/Globulin [Mass ratio] 0.5 {ratio} [facility] Serum or plasma anion gap de terminationon 03-28-2024 Anion gap [Moles/Vol] 13.7 mmol/L [facility] Basophils Auto (Bld) [#/Vol] on 03-27-2024 Basophils (Bld) [#/Vol] 0.1 10 3/uL 0.0-0.1 [facility] Basophils/100 WBC Auto (Bld) on 03-27-2024 Basophils/100 WBC (Bld) 0.8 % 0.2-2.0 [facility] Eosinophils/100 WBC Auto (Bl d)on 03-27-2024 Eosinophils/100 WBC (Bld) 1.1 % 0.9-7.0 [facility] Erythrocyte distribution wid th Auto (RBC) [Ratio]on 03-27-2024 Erythrocyte distribution width (RBC) [Ratio] 14.2 % 11.0-15.0 [facility] Estimated glomerular filtrat ion rate (GFR) non- Americanon 03-27-2024 GFR/1.73 sq M.predicted among non-blacks MDRD (S/P/Bld) [Vol rate/Area] 44 mL/min/{1.73_m2} Low >=60 [facility] Globulin Calc (S) [Mass/Vol] on 03-27-2024 Globulin (S) [Mass/Vol] 4.6 g/dL [facility] Glucose mean value [Mass/vol ume] in Blood Estimated from glycated hemoglobinon 03-27-2024 Average glucose Estimated from glycated hemoglobin (Bld) [Mass/Vol] 275 mg/dL [facility] Hematocrit Auto (Bld) [Volum e fraction]on 03-27-2024 Hematocrit (Bld) [Volume fraction] 37.4 % 36.0-48.0 [facility] Hemoglobin [Mass/volume] in Bloodon 03-27-2024 Hemoglobin (Bld) [Mass/Vol] 12.1 g/dL 12.0-16.0 [facility] Laboratory - Chemistry and C hemistry - challengeon 03-27-2024 Albumin [Mass/Vol] 2.6 g/dL Low 3.4-5.0 [facility] ALP [Catalytic activity/Vol] 89 U/L 46-116 [facility] ALT [Catalytic activity/Vol] 12 U/L Low 14-59 [facility] AST [Catalytic activity/Vol] 9 U/L Low 15-37 [facility] Bilirubin [Mass/Vol] 0.9 mg/dL 0.2-1.0 [facility] Calcium [Mass/Vol] 9.1 mg/dL 8.5-10.1 [facility] Chloride [Moles/Vol] 99 mmol/L 98-107 [facility] CO2 [Moles/Vol] 28.8 mmol/L 21.0-32.0 [facility] Creatinine [Mass/Vol] 1.19 mg/dL High 0.55-1.02 [facility] GFR/1.73 sq M.predicted MDRD (S/P/Bld) [Vol rate/Area] 53 mL/min/{1.73_m2} Low >=60 [facility] Glucose [Mass/Vol] 273 mg/dL High 74-106 [facility] Magnesium [Mass/Vol] 1.7 mg/dL Low 1.8-2.4 [facility] Natriuretic peptide B (Bld) [Mass/Vol] 4572.0 pg/mL High <=1800.0 [facility] Comment on above: RESULTS CALLED TO SA RA MIGUEL RN @BY Alla Kevin [phone] Potassium [Moles/Vol] 3.6 mmol/L 3.5-5.1 [facility] Protein [Mass/Vol] 7.2 g/dL 6.4-8.2 [facility] Sodium [Moles/Vol] 135 mmol/L Low 136-145 [facility] Urea nitrogen [Mass/Vol] 34.0 mg/dL High 7.0-18.0 [facility] Urea nitrogen/Creatinine [Mass ratio] 28.6 mg/mg [facility] Laboratory - Hematology and Cell countson 03-27-2024 HbA1c (Bld) [Mass fraction] 11.2 % High 4.5-6.2 [facility] Comment on above: ADA RECOMMENDED LIMI T 4.0 - 6.0ADA THERAPEUTIC TARGET < 7.0ACTION SUGGESTED> 7.0 Immature granulocytes/100 WBC (Bld) 0.3 % 0.0-0.5 [facility] Leukocytes [#/volume] correc gali for nucleated erythrocytes in Blood by Automated counon 03-27-2024 WBC corrected for nucl RBC Auto (Bld) [#/Vol] 9.7 10 3/uL 4.0-11.0 [facility] Lymphocytes Auto (Bld) [#/Vo l]on 03-27-2024 Lymphocytes (Bld) [#/Vol] 1.3 10 3/uL 1.2-3.8 [facility] Lymphocytes/100 WBC Auto (Bl d)on 03-27-2024 Lymphocytes/100 WBC (Bld) 13.3 % Low 20.5-60.0 [facility] MCH Auto (RBC) [Entitic mass ]on 03-27-2024 MCH (RBC) [Entitic mass] 29.2 pg 26.7-34.0 [facility] MCHC Auto (RBC) [Mass/Vol]on 03-27-2024 MCHC (RBC) [Mass/Vol] 32.4 g/dL 29.9-35.2 [facility] MCV Auto (RBC) [Entitic vol] on 03-27-2024 MCV (RBC) [Entitic vol] 90.3 fL 81.0-99.0 [facility] Monocytes Auto (Bld) [#/Vol] on 03-27-2024 Monocytes (Bld) [#/Vol] 0.8 10 3/uL 0.3-0.8 [facility] Monocytes/100 WBC Auto (Bld) on 03-27-2024 Monocytes/100 WBC (Bld) 8.4 % 1.7-12.0 [facility] Neutrophils Auto (Bld) [#/Vo l]on 03-27-2024 Neutrophils (Bld) [#/Vol] 7.4 10 3/uL High 1.4-6.5 [facility] Neutrophils/100 WBC Auto (Bl d)on 03-27-2024 Neutrophils/100 WBC (Bld) 76.1 % High 43.0-75.0 [facility] No Panel Informationon 03-27 Eosinophils # (Auto) 0.1 10 3/uL 0.0-0.7 [facility] Immature Granulocyte # (Auto) 0.03 10 3/uL 0.00-0.03 [facility] 4572.0 pg/mL High <=1800.0 [facility] 1.7 mg/dL Low 1.8-2.4 [facility] 11.2 % High 4.5-6.2 [facility] 2.6 g/dL Low 3.4-5.0 [facility] 0.1 10 3/uL 0.0-0.7 [facility] 89 U/L 46-116 [facility] 12 U/L Low 14-59 [facility] 9 U/L Low 15-37 [facility] 28.6 [facility] 0.03 10 3/uL 0.00-0.03 [facility] 34.0 mg/dL High 7.0-18.0 [facility] 0.3 % 0.0-0.5 [facility] 9.1 mg/dL 8.5-10.1 [facility] 99 mmol/L 98-107 [facility] 28.8 mmol/L 21.0-32.0 [facility] 1.19 mg/dL High 0.55-1.02 [facility] 53 Low >=60 [facility] 273 mg/dL High 74-106 [facility] 3.6 mmol/L 3.5-5.1 [facility] 135 mmol/L Low 136-145 [facility] 0.9 mg/dL 0.2-1.0 [facility] 7.2 g/dL 6.4-8.2 [facility] Platelet mean volume Auto (B ld) [Entitic vol]on 03-27-2024 Platelet mean volume (Bld) [Entitic vol] 10.6 fL 9.5-13.5 [facility] Platelets Auto (Bld) [#/Vol] on 03-27-2024 Platelets (Bld) [#/Vol] 204 10 3/uL 150-450 [facility] RBC Auto (Bld) [#/Vol]on RBC (Bld) [#/Vol] 4.14 10 6/uL Low 4.20-5.40 [facility] Serum or plasma albumin/glob ulin mass ratioon 03-27-2024 Albumin/Globulin [Mass ratio] 0.6 {ratio} [facility] Serum or plasma anion gap de terminationon 03-27-2024 Anion gap [Moles/Vol] 10.8 mmol/L [facility] Basophils Auto (Bld) [#/Vol] on 03-26-2024 Basophils (Bld) [#/Vol] 0.1 10 3/uL 0.0-0.1 [facility] Basophils/100 WBC Auto (Bld) on 03-26-2024 Basophils/100 WBC (Bld) 0.8 % 0.2-2.0 [facility] Eosinophils/100 WBC Auto (Bl d)on 03-26-2024 Eosinophils/100 WBC (Bld) 1.2 % 0.9-7.0 [facility] Erythrocyte distribution wid th Auto (RBC) [Ratio]on 03-26-2024 Erythrocyte distribution width (RBC) [Ratio] 14.5 % 11.0-15.0 [facility] Estimated glomerular filtrat ion rate (GFR) non- Americanon 03-26-2024 GFR/1.73 sq M.predicted among non-blacks MDRD (S/P/Bld) [Vol rate/Area] 46 mL/min/{1.73_m2} Low >=60 [facility] Glucose mean value [Mass/vol ume] in Blood Estimated from glycated hemoglobinon 03-26-2024 Average glucose Estimated from glycated hemoglobin (Bld) [Mass/Vol] 275 mg/dL [facility] Hematocrit Auto (Bld) [Volum e fraction]on 03-26-2024 Hematocrit (Bld) [Volume fraction] 40.1 % 36.0-48.0 [facility] Hemoglobin [Mass/volume] in Bloodon 03-26-2024 Hemoglobin (Bld) [Mass/Vol] 12.7 g/dL 12.0-16.0 [facility] Laboratory - Chemistry and C hemistry - challengeon 03-26-2024 Calcium [Mass/Vol] 9.1 mg/dL 8.5-10.1 [facility] Chloride [Moles/Vol] 102 mmol/L 98-107 [facility] CO2 [Moles/Vol] 28.5 mmol/L 21.0-32.0 [facility] Creatinine [Mass/Vol] 1.14 mg/dL High 0.55-1.02 [facility] Free T4 [Mass/Vol] 1.29 ng/dL 0.76-1.46 [facility] GFR/1.73 sq M.predicted MDRD (S/P/Bld) [Vol rate/Area] 56 mL/min/{1.73_m2} Low >=60 [facility] Glucose [Mass/Vol] 246 mg/dL High 74-106 [facility] Natriuretic peptide B (Bld) [Mass/Vol] 2890.0 pg/mL High <=1800.0 [facility] Comment on above: RESULTS CALLED TO YOEL ROBIN RN @BY Alla Kunz 0556 Potassium [Moles/Vol] 4.3 mmol/L 3.5-5.1 [facility] Sodium [Moles/Vol] 136 mmol/L 136-145 [facility] TSH Qn 6.001 m[IU]/L High 0.358-3.740 [facility] Urea nitrogen [Mass/Vol] 35.0 mg/dL High 7.0-18.0 [facility] Urea nitrogen/Creatinine [Mass ratio] 30.7 mg/mg [facility] Laboratory - Hematology and Cell countson 03-26-2024 HbA1c (Bld) [Mass fraction] 11.2 % High 4.5-6.2 [facility] Comment on above: ADA RECOMMENDED LIMI T 4.0 - 6.0ADA THERAPEUTIC TARGET < 7.0ACTION SUGGESTED> 7.0 Immature granulocytes/100 WBC (Bld) 0.2 % 0.0-0.5 [facility] Leukocytes [#/volume] correc gali for nucleated erythrocytes in Blood by Automated counon 03-26-2024 WBC corrected for nucl RBC Auto (Bld) [#/Vol] 8.3 10 3/uL 4.0-11.0 [facility] Lymphocytes Auto (Bld) [#/Vo l]on 03-26-2024 Lymphocytes (Bld) [#/Vol] 1.4 10 3/uL 1.2-3.8 [facility] Lymphocytes/100 WBC Auto (Bl d)on 03-26-2024 Lymphocytes/100 WBC (Bld) 16.5 % Low 20.5-60.0 [facility] MCH Auto (RBC) [Entitic mass ]on 03-26-2024 MCH (RBC) [Entitic mass] 29.1 pg 26.7-34.0 [facility] MCHC Auto (RBC) [Mass/Vol]on 03-26-2024 MCHC (RBC) [Mass/Vol] 31.7 g/dL 29.9-35.2 [facility] MCV Auto (RBC) [Entitic vol] on 03-26-2024 MCV (RBC) [Entitic vol] 92.0 fL 81.0-99.0 [facility] Monocytes Auto (Bld) [#/Vol] on 03-26-2024 Monocytes (Bld) [#/Vol] 0.7 10 3/uL 0.3-0.8 [facility] Monocytes/100 WBC Auto (Bld) on 03-26-2024 Monocytes/100 WBC (Bld) 7.9 % 1.7-12.0 [facility] Neutrophils Auto (Bld) [#/Vo l]on 03-26-2024 Neutrophils (Bld) [#/Vol] 6.1 10 3/uL 1.4-6.5 [facility] Neutrophils/100 WBC Auto (Bl d)on 03-26-2024 Neutrophils/100 WBC (Bld) 73.4 % 43.0-75.0 [facility] No Panel Informationon 03-26 Eosinophils # (Auto) 0.1 10 3/uL 0.0-0.7 [facility] Immature Granulocyte # (Auto) 0.02 10 3/uL 0.00-0.03 [facility] Troponin I High Sensitivity 12.4 pg/mL 4.0-51.3 [facility] Comment on above: CUT-OFF POINTS [...] CLINICAL INFORMATION. 1.29 ng/dL 0.76-1.46 [facility] 6.001 u[iU]/mL High 0.358-3.740 [facility] 2890.0 pg/mL High <=1800.0 [facility] 12.4 pg/mL 4.0-51.3 [facility] 11.2 % High 4.5-6.2 [facility] 30.7 [facility] 35.0 mg/dL High 7.0-18.0 [facility] 0.1 10 3/uL 0.0-0.7 [facility] 9.1 mg/dL 8.5-10.1 [facility] 102 mmol/L 98-107 [facility] 28.5 mmol/L 21.0-32.0 [facility] 1.14 mg/dL High 0.55-1.02 [facility] 0.02 10 3/uL 0.00-0.03 [facility] 56 Low >=60 [facility] 0.2 % 0.0-0.5 [facility] 246 mg/dL High 74-106 [facility] 4.3 mmol/L 3.5-5.1 [facility] 136 mmol/L 136-145 [facility] Platelet mean volume Auto (B ld) [Entitic vol]on 03-26-2024 Platelet mean volume (Bld) [Entitic vol] 10.8 fL 9.5-13.5 [facility] Platelets Auto (Bld) [#/Vol] on 03-26-2024 Platelets (Bld) [#/Vol] 225 10 3/uL 150-450 [facility] RBC Auto (Bld) [#/Vol]on RBC (Bld) [#/Vol] 4.36 10 6/uL 4.20-5.40 [facility] Serum or plasma anion gap de terminationon 03-26-2024 Anion gap [Moles/Vol] 9.8 mmol/L [facility] GI PANEL (PCR)on 03-06-2023 Adenovirus F 40/41 Not detected Normal NOT DETECTED [facility] Comment on above: Performed By: #### P OCGLUC #### [facility] [address] [place] [address] Dr. Kasia Nath Astrovirus Not detected Normal NOT DETECTED [facility] Comment on above: Performed By: #### P OCGLUC #### [facility] [address] [place] [address] Dr. Kasia Nath C. Diff toxin A/B Detected Critically abnormal NOT DETECTED [facility] Comment on above: Performed By: #### P OCGLUC #### [facility] [address] [place] [address] Dr. Kasia Nath Campylobacter Detected Critically abnormal NOT DETECTED [facility] Comment on above: Performed By: #### P OCGLUC #### [facility] [address] [address] [address] Kasia Nath Cryptosporidium Not detected Normal NOT DETECTED [facility] Comment on above: Performed By: #### P OCGLUC #### [facility] [address] [address] [address] Kasia Nath Cyclos. Cayetanensis Not detected Normal NOT DETECTED [facility] Comment on above: Performed By: #### P OCGLUC #### [facility] [address] [place] [address] Dr. Kasia Nath E. Coli [id number] Not Applicable Normal Not Applicable [facility] Comment on above: Performed By: #### P OCGLUC #### [facility] [address] [place] [address] Dr. Kasia Nath E. histolytica Not detected Normal NOT DETECTED [facility] Comment on above: Performed By: #### P OCGLUC #### [facility] [address] [address] [address] Kasia Nath EAEC Not detected Normal NOT DETECTED [facility] Comment on above: Performed By: #### P OCGLUC #### [facility] [address] [address] [address] Kasia Nath EIEC Not detected Normal NOT DETECTED [facility] Comment on above: Performed By: #### P OCGLUC #### [facility] [address] [address] [address] Kasia Nath EPEC Not detected Normal NOT DETECTED [facility] Comment on above: Performed By: #### P OCGLUC #### [facility] [address] [place] [address] Dr. Kasia Naht ETEC Not detected Normal NOT DETECTED [facility] Comment on above: Performed By: #### P OCGLUC #### [facility] [address] [place] [address] Dr. Kasia Nath G. Lamblia Not detected Normal NOT DETECTED [facility] Comment on above: Performed By: #### P OCGLUC #### [facility] [address] [place] [address] Dr. Kasia KHAN CONTROLS PASSED Normal [facility] Comment on above: Performed By: #### P OCGLUC #### [facility] [address] [place] [address] Dr. Kasia THOMPSON JUNO HEADER GI PANEL BACTERIA Normal T [facility] Comment on above: Performed By: #### P OCGLUC #### [facility] [address] [address] [address] Kasia GE ECOLI GI PANEL DIARRHEAGEN IC E.COLI / SHIGELLA Normal [facility] Comment on above: Performed By: #### P OCGLUC #### [facility] [address] [place] [address] Dr. Kasia GE INFO SEE BELOW Normal [facility] Comment on above: Result Comment: EAEC - Enteroaggregative E. Coli EPEC- Enteropathogenic E. Coli ETEC- Enterotoxigenic E. Coli lt/st STEC- Shigella-like toxin-producing E. Coli stx1/stx2 EIEC- Shigella/Enteroinvasive E. Coli Performed By: #### P OCGLUC #### [facility] [address] [address] [address] Kasia GE PARASITES GI PANEL PARASITES Normal [facility] Comment on above: Performed By: #### P OCGLUC #### [facility] [address] [address] [address] Kasia GE VIRUS GI PANEL VIRUSES Normal [facility] Comment on above: Performed By: #### P OCGLUC #### [facility] [address] [place] [address] Dr. Kasia Nath Norovirus GI/GII Not detected Normal NOT DETECTED [facility] Comment on above: Performed By: #### P OCGLUC #### [facility] [address] [address] [address] Kasia Nath P. Shigelloides Not detected Normal NOT DETECTED [facility] Comment on above: Performed By: #### P OCGLUC #### [facility] [address] [place] [address] Dr. Kasia Nath Rotavirus A Not detected Normal NOT DETECTED [facility] Comment on above: Performed By: #### P OCGLUC #### [facility] [address] [place] [address] Dr. Kasia Nath Salmonella Not detected Normal NOT DETECTED [facility] Comment on above: Performed By: #### P OCGLUC #### [facility] [address] [place] [address] Dr. Kasia Nath Sapovirus Not detected Normal NOT DETECTED [facility] Comment on above: Performed By: #### P OCGLUC #### [facility] [address] [place] [address] Dr. Kasia Nath STEC Not detected Normal NOT DETECTED [facility] Comment on above: Performed By: #### P OCGLUC #### [facility] [address] [place] [address] Dr. Kasia Nath Vibrio Not detected Normal NOT DETECTED [facility] Comment on above: Performed By: #### P OCGLUC #### [facility] [address] [place] [address] Dr. Kasia Nath Vibrio Cholera Not detected Normal NOT DETECTED [facility] Comment on above: Performed By: #### P OCGLUC #### [facility] [address] [place] [address] Dr. Kasia Nath Y. Enterocolitica Not detected Normal NOT DETECTED [facility] Comment on above: Performed By: #### P OCGLUC #### [facility] [address] [place] [address] Dr. Kasia Nath CBC AUTO DIFFon 02-14-2023 BASO # 0.0 103/ul Normal 0.0-0.1 [facility] Comment on above: Performed By: #### P OCGLUC #### [facility] [address] [place] [address] Dr. Kasia Nath Basophils/100 WBC (Bld) 0.5 % Normal 0.2-2.0 [facility] Comment on above: Performed By: #### P OCGLUC #### [facility] [address] [place] [address] Dr. Kasia Nath EO # 0.2 103/ul Normal 0.0-0.7 [facility] Comment on above: Performed By: #### P OCGLUC #### [facility] [address] [place] [address] Dr. Kasia Nath Eosinophils/100 WBC (Bld) 2.7 % Normal 0.9-7.0 [facility] Comment on above: Performed By: #### P OCGLUC #### [facility] [address] [place] [address] Dr. Kasia Nath Erythrocyte distribution width (RBC) [Ratio] 13.0 % Normal 11.0-15.0 [facility] Comment on above: Performed By: #### P OCGLUC #### [facility] [address] [place] [address] Dr. Kasia Nath Hematocrit (Bld) [Volume fraction] 35.9 % Critically low 36.0-48.0 [facility] Comment on above: Performed By: #### P OCGLUC #### [facility] [address] [place] [address] Dr. Kasia Nath Hemoglobin (Bld) [Mass/Vol] 12.0 g/dL Normal 12.0-16.0 [facility] Comment on above: Performed By: #### P OCGLUC #### [facility] [address] [address] [address] Kasia Nath IG # 0.02 10e3/ul Normal 0.00-0.03 [facility] Comment on above: Performed By: #### P OCGLUC #### [facility] [address] [place] [address] Dr. Kasia Nath IG % 0.3 % Normal 0.0-0.5 [facility] Comment on above: Performed By: #### P OCGLUC #### [facility] [address] [place] [address] Dr. Kasia Nath LYMPH # 1.8 103/ul Normal 1.2-3.8 [facility] Comment on above: Performed By: #### P OCGLUC #### [facility] [address] [place] [address] Dr. Kasia Nath Lymphocytes/100 WBC (Bld) 22.8 % Normal 20.5-60.0 [facility] Comment on above: Performed By: #### P OCGLUC #### [facility] [address] [place] [address] Dr. Kasia Nath MANUAL DIFF REQ NO Normal [facility] Comment on above: Performed By: #### P OCGLUC #### [facility] [address] [address] [address] Kasia Nath MCH (RBC) [Entitic mass] 29.4 pg Normal 26.7-34.0 [facility] Comment on above: Performed By: #### P OCGLUC #### [facility] [address] [place] [address] Dr. Kasia Nath MCHC (RBC) [Mass/Vol] 33.4 g/dL Normal 29.9-35.2 [facility] Comment on above: Performed By: #### P OCGLUC #### [facility] [address] [place] [address] Dr. Kasia Nath MCV (RBC) [Entitic vol] 88.0 fL Normal 81.0-99.0 [facility] Comment on above: Performed By: #### P OCGLUC #### [facility] [address] [place] [address] Dr. Kasia Nath MONO # 0.7 103/ul Normal 0.3-0.8 [facility] Comment on above: Performed By: #### P OCGLUC #### [facility] [address] [place] [address] Dr. Kasia Nath Monocytes/100 WBC (Bld) 9.3 % Normal 1.7-12.0 [facility] Comment on above: Performed By: #### P OCGLUC #### [facility] [address] [place] [address] Dr. Kasia Nath NEUT # 5.1 103/ul Normal 1.4-6.5 [facility] Comment on above: Performed By: #### P OCGLUC #### [facility] [address] [place] [address] Dr. Kasia Nath Neutrophils/100 WBC (Bld) 64.4 % Normal 43.0-75.0 [facility] Comment on above: Performed By: #### P OCGLUC #### [facility] [address] [place] [address] Dr. Kasia Nath Platelet mean volume (Bld) [Entitic vol] 11.7 fL Normal 9.5-13.5 [facility] Comment on above: Performed By: #### P OCGLUC #### [facility] [address] [place] [address] Dr. Kasia Nath PLT 175 103/ul Normal 150-450 [facility] Comment on above: Performed By: #### P OCGLUC #### [facility] [address] [place] [address] Dr. Kasia Nath RBC 4.08 106/ul Critically low 4.20-5.40 [facility] Comment on above: Performed By: #### P OCGLUC #### [facility] [address] [address] [address] Kasia Nath WBC 7.9 103/ul Normal 4.0-11.0 [facility] Comment on above: Performed By: #### P OCGLUC #### [facility] [address] [address] [address] Kasia Nath LIPASEon 02-14-2023 Lipase [Catalytic activity/Vol] 51.0 U/L Critically low 73.0-393.0 [facility] Comment on above: Performed By: #### L IPA, CMP ####[facility] [address] [address]DrDoreen Nath PROF 14(COMP METB)on 023 Albumin [Mass/Vol] 2.8 g/dL Critically low 3.4-5.0 [facility] Comment on above: Performed By: #### L IPA, CMP ####[facility] [address] [address]DrDoreen Nath Albumin/Globulin [Mass ratio] 0.7 {ratio} Normal [facility] Comment on above: Performed By: #### L IPA, CMP ####[facility] [address] [address]Dr. Kasia Nath ALP [Catalytic activity/Vol] 90 U/L Normal 46-116 [facility] Comment on above: Performed By: #### L IPA, CMP ####[facility] [address] [address]Dr. Kasia Nath ALT [Catalytic activity/Vol] 15 U/L Normal 14-59 [facility] Comment on above: Performed By: #### L IPA, CMP ####[facility] [address] [address]Dr. Kasia Nath Anion gap [Moles/Vol] 15.6 mmol/L Normal [facility] Comment on above: Performed By: #### L IPA, CMP ####[facility] [address] [place], [place] [address]Dr. Kasia Nath AST [Catalytic activity/Vol] 9 U/L Critically low 15-37 [facility] Comment on above: Performed By: #### L IPA, CMP ####[facility] [address] [address]Dr[address] Kasia Nath Bilirubin [Mass/Vol] 0.4 mg/dL Normal 0.2-1.0 [facility] Comment on above: Performed By: #### L IPA, CMP ####[facility] [address] [place], [place] [address]Dr. Kasia Nath Calcium [Mass/Vol] 9.1 mg/dL Normal 8.5-10.1 [facility] Comment on above: Performed By: #### L IPA, CMP ####[facility] [address] [place], [place] [address]Dr. Kasia Nath Chloride [Moles/Vol] 104 mmol/L Normal 98-107 [facility] Comment on above: Performed By: #### L IPA, CMP ####[facility] [address] [place], [place] [address]Dr. Kasia Nath CO2 [Moles/Vol] 17.0 mmol/L Critically low 21.0-32.0 [facility] Comment on above: Performed By: #### L IPA, CMP ####[facility] [address] [place], [place] [address]Dr. Kasia Nath Creatinine [Mass/Vol] 1.78 mg/dL Critically high 0.55-1.02 [facility] Comment on above: Performed By: #### L IPA, CMP ####[facility] [address] [place], [place] [address]Dr. Kasia Nath EGFR-AF FAROESE 34 mL/min/1.73m2 Critically low >=60 [facility] Comment on above: Performed By: #### L IPA, CMP ####[facility] [address] [place], [place] [address]Dr. Kasia Nath EGFR-NON AF FAROESE 28 mL/min/1.73m2 Critically low >=60 [facility] Comment on above: Performed By: #### L IPA, CMP ####[facility] [address] [address]Dr. Kasia Nath Globulin (S) [Mass/Vol] 4.3 g/dL Normal [facility] Comment on above: Performed By: #### L IPA, CMP ####[facility] [address] [address]Dr. Kasia Nath Glucose [Mass/Vol] 248 mg/dL Critically high 74-106 T [facility] Comment on above: Performed By: #### L IPA, CMP ####[facility] [address] [place], [place] [address]Dr. Kasia Nath Potassium [Moles/Vol] 4.6 mmol/L Normal 3.5-5.1 [facility] Comment on above: Performed By: #### L IPA, CMP ####[facility] [address] [place], [place] [address]Dr. Kasia Nath Protein [Mass/Vol] 7.1 g/dL Normal 6.4-8.2 [facility] Comment on above: Performed By: #### L IPA, CMP ####[facility] [address] [place], [place] [address]Dr. Kasia Nath Sodium [Moles/Vol] 132 mmol/L Critically low 136-145 [facility] Comment on above: Performed By: #### L IPA, CMP ####[facility] [address] [place], [place] [address]Dr. Kasia Nath Urea nitrogen [Mass/Vol] 78.0 mg/dL Critically high 7.0-18.0 [facility] Comment on above: Performed By: #### L IPA, CMP ####[facility] [address] [place], [place] [address]Dr. Kasia Nath Urea nitrogen/Creatinine [Mass ratio] 43.8 mg/mg Normal [facility] Comment on above: Performed By: #### L IPA, CMP ####[facility] Y[address] [place], [place] [address]Dr. Kasia Nath CBC AUTO DIFFon 02-13-2023 BASO # 0.0 103/ul Normal 0.0-0.1 [facility] Comment on above: Performed By: #### C BC ####[facility] [address] [address]Dr. Kasia Portillo Basophils/100 WBC (Bld) 0.5 % Normal 0.2-2.0 [facility] Comment on above: Performed By: #### C BC ####[facility] [address] [place], [place] [address]Dr. Kasia Nath EO # 0.1 103/ul Normal 0.0-0.7 [facility] Comment on above: Performed By: #### C BC ####[facility] [address] [place], [place] [address]Dr. Kasia Portillo Eosinophils/100 WBC (Bld) 1.0 % Normal 0.9-7.0 [facility] Comment on above: Performed By: #### C BC ####[facility] [address] [place], [place] [address]Dr. Kasia Portillo Erythrocyte distribution width (RBC) [Ratio] 12.8 % Normal 11.0-15.0 [facility] Comment on above: Performed By: #### C BC ####[facility] [address] [place], [place] [address]Dr. Kasia Nath Hematocrit (Bld) [Volume fraction] 38.5 % Normal 36.0-48.0 [facility] Comment on above: Performed By: #### C BC ####[facility] [address] [place], [place] [address]Dr. Kasia Nath Hemoglobin (Bld) [Mass/Vol] 13.0 g/dL Normal 12.0-16.0 [facility] Comment on above: Performed By: #### C BC ####[facility] [address] [place], [place] [address]Dr. Kasia Nath IG # 0.02 10e3/ul Normal 0.00-0.03 [facility] Comment on above: Performed By: #### C BC ####[facility] [address] [place], [place] [address]Dr. Kasia Nath IG % 0.2 % Normal 0.0-0.5 [facility] Comment on above: Performed By: #### C BC ####[facility] [address] [address]Dr. Kasia Portillo LYMPH # 0.9 103/ul Critically low 1.2-3.8 [facility] Comment on above: Performed By: #### C BC ####[facility] [address] [address]Dr. Kasia Portillo Lymphocytes/100 WBC (Bld) 10.0 % Critically low 20.5-60.0 [facility] Comment on above: Performed By: #### C BC ####[facility] [address] [place], [place] [address]Dr. aKsia Nath MANUAL DIFF REQ NO Normal [facility] Comment on above: Performed By: #### C BC ####[facility] [address] [place], [place] [address]Dr. Kasia Portillo MCH (RBC) [Entitic mass] 29.5 pg Normal 26.7-34.0 [facility] Comment on above: Performed By: #### C BC ####[facility] [address] [place], [place] [address]Dr. Kasia Portillo MCHC (RBC) [Mass/Vol] 33.8 g/dL Normal 29.9-35.2 [facility] Comment on above: Performed By: #### C BC ####[facility] [address] [address]Dr. Kasia Nath MCV (RBC) [Entitic vol] 87.5 fL Normal 81.0-99.0 [facility] Comment on above: Performed By: #### C BC ####[facility] [address] [place], [place] [address]DrDoreen Nath MONO # 0.5 103/ul Normal 0.3-0.8 [facility] Comment on above: Performed By: #### C BC ####[facility] [address] [address]Dr. Kasia Nath Monocytes/100 WBC (Bld) 5.7 % Normal 1.7-12.0 [facility] Comment on above: Performed By: #### C BC ####[facility] [address] [address]Dr. Kasia Nath NEUT # 7.2 103/ul Critically high 1.4-6.5 [facility] Comment on above: Performed By: #### C BC ####[facility] [address] [address]Dr. Kasia Nath Neutrophils/100 WBC (Bld) 82.6 % Critically high 43.0-75.0 [facility] Comment on above: Performed By: #### C BC ####[facility] [address] [address]Dr. Kasia Nath Platelet mean volume (Bld) [Entitic vol] 11.8 fL Normal 9.5-13.5 [facility] Comment on above: Performed By: #### C BC ####[facility] [address] [place], [place] [address]Dr. Kasia Nath PLT 187 103/ul Normal 150-450 [facility] Comment on above: Performed By: #### C BC ####[facility] [address] [place], [place] [address]Dr. Kasia Nath RBC 4.40 106/ul Normal 4.20-5.40 [facility] Comment on above: Performed By: #### C BC ####[facility] [address] [place], [place] [address]Dr. Kasia Nath WBC 8.8 103/ul Normal 4.0-11.0 [facility] Comment on above: Performed By: #### C BC ####[facility] [address] [place], [place] [address]Dr. Kasia Nath CT ABD/PELVIS WO CONon 02-13 [...] JACOB MCCURDY Date: 2023-02-13 14:40 Normal [facility] CULTURE URINEon 02-13-2023 CULTURE URINE Culture Observations : LIGHT GROWTH OF MIXED GENITAL VON. NO POTENTIAL PATHOGENS SEEN. Normal [facility] Comment on above: Performed By: #### U RCX ####[facility] [address] [address]Dr. Kasia Nath Covid-19 PCR ([facility])on SARS-CoV-2 (COVID-19) RNA FERN+probe Ql (Unsp spec) Not detected Normal NOT DETECTED [facility] Comment on above: Result Comment: [...] for this test is supported by the [place] of [employer] and Human Service's declaration that [...] used). Performed By: #### P OCGLUC #### [facility] [address] [place] [address] Dr. Kasia Nath GI PANEL (PCR)on 02-13-2023 Adenovirus F 40/41 Not detected Normal NOT DETECTED [facility] Comment on above: Performed By: #### C BC #### [facility] [address] [place] [address] Dr. Kasia Nath Astrovirus Not detected Normal NOT DETECTED [facility] Comment on above: Performed By: #### C BC #### [facility] [address] [place] [address] Dr. Kasia Del Real. Diff toxin A/B Not detected Normal NOT DETECTED [facility] Comment on above: Performed By: #### C BC #### [facility] [address] [place] [address] Dr. Kasia Nath Campylobacter Not detected Normal NOT DETECTED [facility] Comment on above: Performed By: #### C BC #### [facility] [address] [place] [address] Dr. Kasia Nath Cryptosporidium Not detected Normal NOT DETECTED [facility] Comment on above: Performed By: #### C BC #### [facility] [address] [place] [address] Dr. aKsia Nath Cyclos. Cayetanensis Not detected Normal NOT DETECTED [facility] Comment on above: Performed By: #### C BC #### [facility] [address] [place] [address] Dr. Kasia Nath E. Coli O157 Not Applicable Normal Not Applicable [facility] Comment on above: Performed By: #### C BC #### [facility] [address] [place] [address] Dr. Kasia Nath E. histolytica Not detected Normal NOT DETECTED [facility] Comment on above: Performed By: #### C BC #### [facility] [address] [place] [address] Dr. Kasia Nath EAEC Not detected Normal NOT DETECTED [facility] Comment on above: Performed By: #### C BC #### [facility] [address] [place] [address] Dr. Kasia Nath EIEC Not detected Normal NOT DETECTED [facility] Comment on above: Performed By: #### C BC #### [facility] [address] [place] [address] Dr. Kasia Nath EPEC Not detected Normal NOT DETECTED [facility] Comment on above: Performed By: #### C BC #### [facility] [address] [place] [address] Dr. Kasia Nath ETEC Not detected Normal NOT DETECTED [facility] Comment on above: Performed By: #### C BC #### [facility] [address] [place] [address] Dr. Kasia Nath G. Lamblia Not detected Normal NOT DETECTED [facility] Comment on above: Performed By: #### C BC #### [facility] [address] [place] [address] Dr. Kasia KHAN CONTROLS PASSED Normal [facility] Comment on above: Performed By: #### C BC #### [facility] [address] [place] [address] Dr. Kasia THOMPSON [facility] HEADER GI PANEL BACTERIA Normal T [facility] Comment on above: Performed By: #### C BC #### [facility] [address] [place] [address] Dr. Kasia THOMPSON ECOLI GI PANEL DIARRHEAGEN IC E.COLI / SHIGELLA Normal [facility] Comment on above: Performed By: #### C BC #### [facility] [address] [place] [address] Dr. Kasia GE INFO SEE BELOW Normal [facility] Comment on above: Result Comment: EAEC - Enteroaggregative E. Coli EPEC- Enteropathogenic E. Coli ETEC- Enterotoxigenic E. Coli lt/st STEC- Shigella-like toxin-producing E. Coli stx1/stx2 EIEC- Shigella/Enteroinvasive E. Coli Performed By: #### C BC #### [facility] [address] [place] [address] Dr. Kasia GE PARASITES GI PANEL PARASITES Normal [facility] Comment on above: Performed By: #### C BC #### [facility] [address] [place] [address] Dr. Kasia GE VIRUS GI PANEL VIRUSES Normal [facility] Comment on above: Performed By: #### C BC #### [facility] [address] [place] [address] Dr. Kasia Nath Norovirus GI/GII Not detected Normal NOT DETECTED [facility] Comment on above: Performed By: #### C BC #### [facility] [address] [place] [address] Dr. Kasia Nath P. Shigelloides Not detected Normal NOT DETECTED [facility] Comment on above: Performed By: #### C BC #### [facility] [address] [place] [address] Dr. Kasia Nath Rotavirus A Not detected Normal NOT DETECTED [facility] Comment on above: Performed By: #### C BC #### [facility] [address] [place] [address] Dr. Kasia Nath Salmonella Not detected Normal NOT DETECTED [facility] Comment on above: Performed By: #### C BC #### [facility] [address] [place] [address] Dr. Kasia Nath Sapovirus Not detected Normal NOT DETECTED [facility] Comment on above: Performed By: #### C BC #### [facility] [address] [place] [address] Dr. Kasia Nath STEC Not detected Normal NOT DETECTED [facility] Comment on above: Performed By: #### C BC #### [facility] [address] [place] [address] Dr. Kasia Nath Vibrio Not detected Normal NOT DETECTED [facility] Comment on above: Performed By: #### C BC #### [facility] [address] [address] [address] Kasia Nath Vibrio Cholera Not detected Normal NOT DETECTED [facility] Comment on above: Performed By: #### C BC #### [facility] [address] [address] [address] Kasia Nath Y. Enterocolitica Not detected Normal NOT DETECTED [facility] Comment on above: Performed By: #### C BC #### [facility] [address] [address] [address] Kasia Nath LACTATE/LACTIC ACIDon 2022 Lactate [Moles/Vol] 1.7 mmol/L Normal 0.4-2.0 [facility] Comment on above: Performed By: #### L ACT ####[facility] [address] [address]Dr. Kasia Nath LIPASEon 02-13-2023 Lipase [Catalytic activity/Vol] 82.0 U/L Normal 73.0-393.0 [facility] Comment on above: Performed By: #### L IPA, CMP #### [facility] [address] [address] [address] Kasia Nath POINT OF CARE GLUCOSEon Glucose [Mass/Vol] 229 mg/dL Critically high 74-106 [facility] Comment on above: Performed By: #### P OCGLUC #### [facility] [address] [place] [address] Dr. Kasia Nath Glucose [Mass/Vol] 474 mg/dL Critically high 74-106 [facility] Comment on above: Performed By: #### P OCGLUC #### [facility] [address] [address] [address] Kasia Nath PROF 14(COMP METB)on 023 Albumin [Mass/Vol] 3.4 g/dL Normal 3.4-5.0 [facility] Comment on above: Performed By: #### L IPA, CMP #### [facility] [address] [place] [address] Dr. Kasia Nath Albumin/Globulin [Mass ratio] 0.7 {ratio} Normal [facility] Comment on above: Performed By: #### L IPA, CMP #### [facility] [address] [address] [address] Kasia Nath ALP [Catalytic activity/Vol] 106 U/L Normal 46-116 [facility] Comment on above: Performed By: #### L IPA, CMP #### [facility] [address] [address] [address] Kasia Nath ALT [Catalytic activity/Vol] 21 U/L Normal 14-59 [facility] Comment on above: Performed By: #### L IPA, CMP #### [facility] [address] [place] [address] Dr. Kasia Nath Anion gap [Moles/Vol] 17.7 mmol/L Normal [facility] Comment on above: Performed By: #### L IPA, CMP #### [facility] [address] [place] [address] Dr. Kasia Nath AST [Catalytic activity/Vol] 11 U/L Critically low 15-37 [facility] Comment on above: Performed By: #### L IPA, CMP #### [facility] [address] [place] [address] Dr. Kasia Nath Bilirubin [Mass/Vol] 0.5 mg/dL Normal 0.2-1.0 [facility] Comment on above: Performed By: #### L IPA, CMP #### [facility] [address] [place] [address] Dr. Kasia Nath Calcium [Mass/Vol] 9.6 mg/dL Normal 8.5-10.1 [facility] Comment on above: Performed By: #### L IPA, CMP #### [facility] [address] [place] [address] Dr. Kasia Nath Chloride [Moles/Vol] 99 mmol/L Normal 98-107 [facility] Comment on above: Performed By: #### L IPA, CMP #### [facility] [address] [place] [address] Dr. Kasia Nath CO2 [Moles/Vol] 20.6 mmol/L Critically low 21.0-32.0 [facility] Comment on above: Performed By: #### L IPA, CMP #### [facility] [address] [address] [address] Kasia Nath Creatinine [Mass/Vol] 2.14 mg/dL Critically high 0.55-1.02 [facility] Comment on above: Performed By: #### L IPA, CMP #### [facility] [address] [address] [address] Kasia Nath EGFR-AF FAROESE 27 mL/min/1.73m2 Critically low >=60 [facility] Comment on above: Performed By: #### L IPA, CMP #### [facility] [address] [place] [address] Dr. Kasia Nath EGFR-NON AF FAROESE 22 mL/min/1.73m2 Critically low >=60 [facility] Comment on above: Performed By: #### L IPA, CMP #### [facility] [address] [place] [address] Dr. Kasia Nath Globulin (S) [Mass/Vol] 4.8 g/dL Normal [facility] Comment on above: Performed By: #### L IPA, CMP #### [facility] [address] [place] [address] Dr. Kasia Nath Glucose [Mass/Vol] 498 mg/dL Critically high 74-106 [facility] Comment on above: Performed By: #### L IPA, CMP #### [facility] [address] [place] [address] Dr. Kasia Nath Potassium [Moles/Vol] 5.3 mmol/L Critically high 3.5-5.1 [facility] Comment on above: Performed By: #### L IPA, CMP #### [facility] [address] [place] [address] Dr. Kasia Nath Protein [Mass/Vol] 8.2 g/dL Normal 6.4-8.2 [facility] Comment on above: Performed By: #### L IPA, CMP #### [facility] [address] [place] [address] Dr. Kasia Nath Sodium [Moles/Vol] 132 mmol/L Critically low 136-145 [facility] Comment on above: Performed By: #### L IPA, CMP #### [facility] [address] [address] [address] Kasia Nath Urea nitrogen [Mass/Vol] 86.0 mg/dL Critically high 7.0-18.0 [facility] Comment on above: Performed By: #### L IPA, CMP #### [facility] [address] [address] [address] Kasia Nath Urea nitrogen/Creatinine [Mass ratio] 40.2 mg/mg Normal [facility] Comment on above: Performed By: #### L IPA, CMP #### [facility] [address] [place] [address] Dr. Kasia Nath UA RANDOM W/MICROSCOPICon BACTERIA TRACE Abnormal NONE SEEN [facility] Comment on above: Performed By: #### U AMIC ####[facility] [address] [place], [place] [address]Dr. Kasia Nath Bilirubin Ql (U) Negative Normal NEGATIVE [facility] Comment on above: Performed By: #### U AMIC ####[facility] [address] [place], [place] [address]DrDoreen Nath CAST SEEN Abnormal NONE [facility] Comment on above: Performed By: #### U AMIC ####[facility] [address] [address]Dr. Kasia Nath Clarity (U) CLEAR Normal CLEAR [facility] Comment on above: Performed By: #### U AMIC ####[facility] [address] [address]Dr. Kasia Nath Color (U) LT. YELLOW Normal YELLOW [facility] Comment on above: Performed By: #### U AMIC ####[facility] [address] [address]Dr. Kasia Nath Crystals LM Nom (Urine sed) NONE SEEN Normal NONE SEEN [facility] Comment on above: Performed By: #### U AMIC ####[facility] [address] [address]Dr. Kasia Nath Epithelial cells LM Ql (Urine sed) FEW Abnormal NONE SEEN /RARE [facility] Comment on above: Performed By: #### U AMIC ####[facility] [address] [address]Dr. Kasia Nath Glucose Ql (U) >1000 Abnormal NEGATIVE [facility] Comment on above: Performed By: #### U AMIC ####[facility] [address] [address]Dr. Kasia Nath Hemoglobin Ql (U) Negative Normal NEGATIVE [facility] Comment on above: Performed By: #### U AMIC ####[facility] [address] [place], [place] [address]Dr. Kasia Nath HYALINE CAST RARE Normal [facility] Comment on above: Performed By: #### U AMIC ####[facility] [address] [place], [place] [address]Dr. Kasia Nath Ketones Ql (U) Negative Normal NEGATIVE [facility] Comment on above: Performed By: #### U AMIC ####[facility] [address] [place], [place] [address]Dr. Kasia Nath LEUKOCYTES Negative Normal NEGATIVE [facility] Comment on above: Performed By: #### U AMIC ####[facility] [address] [address]Dr. Kasia Nath MUCOUS NONE SEEN Normal NONE SEEN [facility] Comment on above: Performed By: #### U AMIC ####[facility] [address] [place], [place] [address]Dr. Kasia Nath Nitrite Ql (U) Negative Normal NEGATIVE [facility] Comment on above: Performed By: #### U AMIC ####[facility] [address] [place], [place] [address]Dr. Kasia Nath pH (U) 5.5 [pH] Normal 5-9 [facility] Comment on above: Performed By: #### U AMIC ####[facility] [address] [place], [place] [address]Dr. Kasia Nath RBC 0-2 Normal 0-2 [facility] Comment on above: Performed By: #### U AMIC ####[facility] [address] [address]Dr. Kasia Nath SPEC GRAVITY 1.015 Normal 1.005-<=1.0 25 [facility] Comment on above: Performed By: #### U AMIC ####[facility] [address] [address]Dr. Kasia Nath UA PROTEIN TRACE Normal NEGATIVE/ TRACE [facility] Comment on above: Performed By: #### U AMIC ####[facility] [address] [address]Dr. Kasia Nath Urobilinogen Qn (U) 0.2 {Meka'U}/dL Normal 0.2 - 1. 0 [facility] Comment on above: Performed By: #### U AMIC ####[facility] [address] [place], [place] [address]Dr. Kasia Nath WBC 0-2 Abnormal NONE SEEN [facility] Comment on above: Performed By: #### U AMIC ####[facility] [address] [address]Dr. Kasia Nath BNPon 01-16-2023 Natriuretic peptide B (Bld) [Mass/Vol] 1675.0 pg/mL Normal <=1,800.0 [facility] Comment on above: Performed By: #### B TICKET MAKER, CMP ####[facility] [address] [place], [place] [address]Dr. Kasia Nath PROF 14(COMP METB)on 023 Albumin [Mass/Vol] 3.4 g/dL Normal 3.4-5.0 [facility] Comment on above: Performed By: #### B TICKET MAKER, CMP ####[facility] [address] [address]Dr. Kasia Nath Albumin/Globulin [Mass ratio] 0.8 {ratio} Normal [facility] Comment on above: Performed By: #### B TICKET MAKER, CMP ####[facility] [address] [id number]. Kasia Nath ALP [Catalytic activity/Vol] 99 U/L Normal 46-116 [facility] Comment on above: Performed By: #### B TICKET MAKER, CMP ####[facility] [address] [address]Dr. Kasia Nath ALT [Catalytic activity/Vol] 18 U/L Normal 14-59 [facility] Comment on above: Performed By: #### B TICKET MAKER, CMP ####[facility] [address] [address]Dr. Kasia Nath Anion gap [Moles/Vol] 10.6 mmol/L Normal [facility] Comment on above: Performed By: #### B TICKET MAKER, CMP ####[facility] [address] [place], [place] [address]Dr. Kasia Nath AST [Catalytic activity/Vol] 15 U/L Normal 15-37 [facility] Comment on above: Performed By: #### B TICKET MAKER, CMP ####[facility] [address] [place], [place] [address]Dr. Kasia Nath Bilirubin [Mass/Vol] 0.5 mg/dL Normal 0.2-1.0 [facility] Comment on above: Performed By: #### B TICKET MAKER, CMP ####[facility] [address] [place], [place] [address]Dr. Kasia Nath Calcium [Mass/Vol] 9.1 mg/dL Normal 8.5-10.1 [facility] Comment on above: Performed By: #### B TICKET MAKER, CMP ####[facility] [address] [address]Dr. Kasia Nath Chloride [Moles/Vol] 98 mmol/L Normal 98-107 [facility] Comment on above: Performed By: #### B TICKET MAKER, CMP ####[facility] [address] [address]Dr. Kasia Nath CO2 [Moles/Vol] 30.4 mmol/L Normal 21.0-32.0 [facility] Comment on above: Performed By: #### B TICKET MAKER, CMP ####[facility] [address] [address]Dr. Kasia Nath Creatinine [Mass/Vol] 1.44 mg/dL Critically high 0.55-1.02 [facility] Comment on above: Performed By: #### B TICKET MAKER, CMP ####[facility] [address] [address]Dr. Kasia Portillo EGFR-AF FAROESE 43 mL/min/1.73m2 Critically low >=60 [facility] Comment on above: Performed By: #### B TICKET MAKER, CMP ####[facility] [address] [place], [place] [address]Dr. Kasia Portillo EGFR-NON AF FAROESE 35 mL/min/1.73m2 Critically low >=60 [facility] Comment on above: Performed By: #### B TICKET MAKER, CMP ####[facility] [address] [place], [place] [address]Dr. Kasia Nath Globulin (S) [Mass/Vol] 4.4 g/dL Normal [facility] Comment on above: Performed By: #### B TICKET MAKER, CMP ####[facility] [address] [place], [place] [address]Dr. Fartuncristy Portillo Glucose [Mass/Vol] 401 mg/dL Critically high 74-106 T [facility] Comment on above: Performed By: #### B TICKET MAKER, CMP ####[facility] [address] [place], [place] [address]Dr. Fartuncristy Portillo Potassium [Moles/Vol] 5.0 mmol/L Normal 3.5-5.1 [facility] Comment on above: Performed By: #### B TICKET MAKER, CMP ####[facility] [address] [place], [place] [address]Dr. Kasia Nath Protein [Mass/Vol] 7.8 g/dL Normal 6.4-8.2 [facility] Comment on above: Performed By: #### B TICKET MAKER, CMP ####[facility] [address] [place], [place] [address]Dr. Kasia Nath Sodium [Moles/Vol] 134 mmol/L Critically low 136-145 [facility] Comment on above: Performed By: #### B TICKET MAKER, CMP ####[facility] [address] [address]Dr. Kasia Nath Urea nitrogen [Mass/Vol] 46.0 mg/dL Critically high 7.0-18.0 [facility] Comment on above: Performed By: #### B TICKET MAKER, CMP ####[facility] [address] [address]Dr. Kasia Nath Urea nitrogen/Creatinine [Mass ratio] 31.9 mg/mg Normal [facility] Comment on above: Performed By: #### B TICKET MAKER, CMP ####[facility] [address] [address]Dr. Kasia Nath BNPon 01-05-2023 Natriuretic peptide B (Bld) [Mass/Vol] 1389.0 pg/mL Normal <=1,800.0 [facility] Comment on above: Performed By: #### B TICKET MAKER, CMADM, CMP ####[facility] [address] [address]Dr. Kasia Nath CARDIAC EMERY ADMITon 023 CK [Catalytic activity/Vol] 138 U/L Normal 26-192 [facility] Comment on above: Performed By: #### B TICKET MAKER, CMADM, CMP ####[facility] [address] [place], [place] [address]Dr. cristy Nath CK.MB [Mass/Vol] 2.22 ng/mL Normal <=3.60 [facility] Comment on above: Performed By: #### B TICKET MAKER, CMADM, CMP ####[facility] [address] [place], [place] [address]Dr. [facility] Nath HSTROP 15.9 pg/mL Normal 4.0-51.3 [facility] Comment on above: Result Comment: CUT- OFF POINTS HAVE BEEN ESTABLISHED BASED ON THE FOURTH UNIVERSAL DEFINITIONS OF MYOCARDIAL INFARCTION. THE UPPER REFERENCE LIMIT (URL) OF TROPONIN, DEFINED THE 99TH PERCENTILE OF cTnI DISTRIBUTION IN A REFERENCE POPULATION, HAS BEEN CONFIRMED THE DECISION THRESHOLD FOR GA DIAGNOSIS. Performed By: #### B TICKET MAKER, CMADM, CMP ####[facility] [address] [place], [place] [address]UwDoreen Nath GRETTA 178 ng/mL Critically high 9-82 The [facility] Comment on above: Performed By: #### B TICKET MAKER, CMADM, CMP ####[facility] [address] [place], [place] [address]EdDr. Kasia Nath CBC AUTO DIFFon 01-05-2023 BASO # 0.1 103/ul Normal 0.0-0.1 [facility] Comment on above: Performed By: #### C BC #### [facility] [address] [address] [address] Kasia Nath Basophils/100 WBC (Bld) 0.7 % Normal 0.2-2.0 [facility] Comment on above: Performed By: #### C BC #### [facility] [address] [address] [address] Kasia Nath EO # 0.3 103/ul Normal 0.0-0.7 [facility] Comment on above: Performed By: #### C BC #### [facility] [address] [address] [address] Kasia Nath Eosinophils/100 WBC (Bld) 2.9 % Normal 0.9-7.0 [facility] Comment on above: Performed By: #### C BC #### [facility] [address] [address] [address] Kasia Nath Erythrocyte distribution width (RBC) [Ratio] 13.5 % Normal 11.0-15.0 [facility] Comment on above: Performed By: #### C BC #### [facility] [address] [address] [address] Kasia Nath Hematocrit (Bld) [Volume fraction] 39.8 % Normal 36.0-48.0 [facility] Comment on above: Performed By: #### C BC #### [facility] [address] [address] [address] Kasia Nath Hemoglobin (Bld) [Mass/Vol] 13.5 g/dL Normal 12.0-16.0 [facility] Comment on above: Performed By: #### C BC #### [facility] [address] [place] [address] Dr. Kasia Nath IG # 0.02 10e3/ul Normal 0.00-0.03 [facility] Comment on above: Performed By: #### C BC #### [facility] [address] [place] [address] Dr. Kasia Nath IG % 0.2 % Normal 0.0-0.5 [facility] Comment on above: Performed By: #### C BC #### [facility] [address] [place] [address] Dr. Kasia Nath LYMPH # 1.9 103/ul Normal 1.2-3.8 [facility] Comment on above: Performed By: #### C BC #### [facility] [address] [place] [address] Dr. Kasia Nath Lymphocytes/100 WBC (Bld) 22.0 % Normal 20.5-60.0 [facility] Comment on above: Performed By: #### C BC #### [facility] [address] [place] [address] Dr. Kasia Nath MANUAL DIFF REQ NO Normal [facility] Comment on above: Performed By: #### C BC #### [facility] [address] [place] [address] Dr. Kasia Nath MCH (RBC) [Entitic mass] 29.8 pg Normal 26.7-34.0 [facility] Comment on above: Performed By: #### C BC #### [facility] [address] [place] [address] Dr. Kasia Nath MCHC (RBC) [Mass/Vol] 33.9 g/dL Normal 29.9-35.2 [facility] Comment on above: Performed By: #### C BC #### [facility] [address] [place] [address] Dr. Kasia Nath MCV (RBC) [Entitic vol] 87.9 fL Normal 81.0-99.0 [facility] Comment on above: Performed By: #### C BC #### [facility] [address] [place] [address] Dr. Kasia Nath MONO # 0.8 103/ul Normal 0.3-0.8 [facility] Comment on above: Performed By: #### C BC #### [facility] [address] [place] [address] Dr. Kasia Nath Monocytes/100 WBC (Bld) 8.8 % Normal 1.7-12.0 [facility] Comment on above: Performed By: #### C BC #### [facility] [address] [place] [address] Dr. Kasia Nath NEUT # 5.6 103/ul Normal 1.4-6.5 [facility] Comment on above: Performed By: #### C BC #### [facility] [address] [place] [address] Dr. Kasia Nath Neutrophils/100 WBC (Bld) 65.4 % Normal 43.0-75.0 [facility] Comment on above: Performed By: #### C BC #### [facility] [address] [place] [address] Dr. Kasia Nath Platelet mean volume (Bld) [Entitic vol] 10.6 fL Normal 9.5-13.5 [facility] Comment on above: Performed By: #### C BC #### [facility] [address] [place] [address] Dr. Kasia Nath PLT 222 103/ul Normal 150-450 [facility] Comment on above: Performed By: #### C BC #### [facility] [address] [place] [address] Dr. Kasia Nath RBC 4.53 106/ul Normal 4.20-5.40 [facility] Comment on above: Performed By: #### C BC #### [facility] [address] [place] [address] Dr. Kasia Nath WBC 8.6 103/ul Normal 4.0-11.0 [facility] Comment on above: Performed By: #### C BC #### [facility] [address] [place] [address] Dr. Kasia Nath PROF 14(COMP METB)on 023 Albumin [Mass/Vol] 3.3 g/dL Critically low 3.4-5.0 [facility] Comment on above: Performed By: #### B TICKET MAKER, CMADM, CMP #### [facility] [address] [address] [address] Kasia Nath Albumin/Globulin [Mass ratio] 0.7 {ratio} Normal [facility] Comment on above: Performed By: #### B TICKET MAKER, CMADM, CMP #### [facility] [address] [address] [address] Kasia Nath ALP [Catalytic activity/Vol] 106 U/L Normal 46-116 [facility] Comment on above: Performed By: #### B TICKET MAKER, CMADM, CMP #### [facility] [address] [address] [address] Kasia Nath ALT [Catalytic activity/Vol] 22 U/L Normal 14-59 [facility] Comment on above: Performed By: #### B TICKET MAKER, CMADM, CMP #### [facility] [address] [address] [address] Kasia Nath Anion gap [Moles/Vol] 12.0 mmol/L Normal [facility] Comment on above: Performed By: #### B TICKET MAKER, CMADM, CMP #### [facility] [address] [address] [address] Kasia Nath AST [Catalytic activity/Vol] 23 U/L Normal 15-37 [facility] Comment on above: Performed By: #### B TICKET MAKER, CMADM, CMP #### [facility] [address] [address] [address] Kasia Nath Bilirubin [Mass/Vol] 0.7 mg/dL Normal 0.2-1.0 [facility] Comment on above: Performed By: #### B TICKET MAKER, CMADM, CMP #### [facility] [address] [address] [address] Kasia Nath Calcium [Mass/Vol] 8.8 mg/dL Normal 8.5-10.1 [facility] Comment on above: Performed By: #### B TICKET MAKER, CMADM, CMP #### [facility] [address] [address] [address] Kasia Nath Chloride [Moles/Vol] 98 mmol/L Normal 98-107 [facility] Comment on above: Performed By: #### B TICKET MAKER, CMADM, CMP #### [facility] [address] [address] [address] Kasia Nath CO2 [Moles/Vol] 30.2 mmol/L Normal 21.0-32.0 [facility] Comment on above: Performed By: #### B TICKET MAKER, CMADM, CMP #### [facility] [address] [place] [address] Dr. Kasia Nath Creatinine [Mass/Vol] 1.19 mg/dL Critically high 0.55-1.02 [facility] Comment on above: Performed By: #### B TICKET MAKER, CMADM, CMP #### [facility] [address] [place] [address] Dr. Kasia Nath EGFR-AF FAROESE 53 mL/min/1.73m2 Critically low >=60 [facility] Comment on above: Performed By: #### B TICKET MAKER, CMADM, CMP #### [facility] [address] [place] [address] Dr. Kasia Nath EGFR-NON AF FAROESE 44 mL/min/1.73m2 Critically low >=60 [facility] Comment on above: Performed By: #### B TICKET MAKER, CMADM, CMP #### [facility] [address] [place] [address] Dr. Kasia Nath Globulin (S) [Mass/Vol] 4.7 g/dL Normal [facility] Comment on above: Performed By: #### B TICKET MAKER, CMADM, CMP #### [facility] [address] [place] [address] Dr. Kasia Nath Glucose [Mass/Vol] 124 mg/dL Critically high 74-106 [facility] Comment on above: Performed By: #### B TICKET MAKER, CMADM, CMP #### [facility] [address] [place] [address] Dr. Kasia Nath Potassium [Moles/Vol] 3.2 mmol/L Critically low 3.5-5.1 [facility] Comment on above: Performed By: #### B TICKET MAKER, CMADM, CMP #### [facility] [address] [address] [address] Kasia Nath Protein [Mass/Vol] 8.0 g/dL Normal 6.4-8.2 [facility] Comment on above: Performed By: #### B TICKET MAKER, CMADM, CMP #### [facility] [address] [address] [address] Kasia Nath Sodium [Moles/Vol] 137 mmol/L Normal 136-145 [facility] Comment on above: Performed By: #### B TICKET MAKER, CMADM, CMP #### [facility] [address] [address] [address] Kasia Nath Urea nitrogen [Mass/Vol] 29.0 mg/dL Critically high 7.0-18.0 [facility] Comment on above: Performed By: #### B TICKET MAKER, CMADM, CMP #### [facility] [address] [address] [address] Kasia Nath Urea nitrogen/Creatinine [Mass ratio] 24.4 mg/mg Normal [facility] Comment on above: Performed By: #### B TICKET MAKER, CMADM, CMP #### [facility] [address] [address] [address] Kasia Nath TROPONIN, HIGH SENSITIVITYon 01-05-2023 HSTROP 18.4 pg/mL Normal 4.0-51.3 [facility] Comment on above: Result Comment: CUT- OFF POINTS HAVE BEEN ESTABLISHED BASED ON THE FOURTH UNIVERSAL DEFINITIONS OF MYOCARDIAL INFARCTION. THE UPPER REFERENCE LIMIT (URL) OF TROPONIN, DEFINED THE 99TH PERCENTILE OF cTnI DISTRIBUTION IN A REFERENCE POPULATION, HAS BEEN CONFIRMED THE DECISION THRESHOLD FOR GA DIAGNOSIS. Performed By: #### H STROPN ####[facility] [address] [address]Dr. Kasia Nath XR CHEST 1 Von 01-05-2023 [...] BIN ROJAS Date: 2023-01-05 04:39 Normal [facility] BNPon 01-02-2023 Natriuretic peptide B (Bld) [Mass/Vol] 2583.0 pg/mL Critically high <=1,800.0 [facility] Comment on above: Performed By: #### B TICKET MAKER, CMP ####[facility] [address] [address]Dr. Kasia Nath CBC AUTO DIFFon 01-02-2023 BASO # 0.1 103/ul Normal 0.0-0.1 [facility] Comment on above: Performed By: #### P OCGLUC #### [facility] [address] [address] [address] Kasia Nath Basophils/100 WBC (Bld) 0.9 % Normal 0.2-2.0 [facility] Comment on above: Performed By: #### P OCGLUC #### [facility] [address] [address] [address] Kasia Nath EO # 0.2 103/ul Normal 0.0-0.7 [facility] Comment on above: Performed By: #### P OCGLUC #### [facility] [address] [address] [address] Kasia Nath Eosinophils/100 WBC (Bld) 2.3 % Normal 0.9-7.0 [facility] Comment on above: Performed By: #### P OCGLUC #### [facility] [address] [address] [address] Kasia Nath Erythrocyte distribution width (RBC) [Ratio] 13.8 % Normal 11.0-15.0 [facility] Comment on above: Performed By: #### P OCGLUC #### [facility] [address] [place] [address] Dr. Kasia Nath Hematocrit (Bld) [Volume fraction] 35.5 % Critically low 36.0-48.0 [facility] Comment on above: Performed By: #### P OCGLUC #### [facility] [address] [place] [address] Dr. Kasia Nath Hemoglobin (Bld) [Mass/Vol] 11.6 g/dL Critically low 12.0-16.0 [facility] Comment on above: Performed By: #### P OCGLUC #### [facility] [address] [place] [address] Dr. Kasia Nath IG # 0.02 10e3/ul Normal 0.00-0.03 [facility] Comment on above: Performed By: #### P OCGLUC #### [facility] [address] [place] [address] Dr. Kasia Nath IG % 0.3 % Normal 0.0-0.5 [facility] Comment on above: Performed By: #### P OCGLUC #### [facility] [address] [place] [address] Dr. Kasia Nath LYMPH # 2.0 103/ul Normal 1.2-3.8 [facility] Comment on above: Performed By: #### P OCGLUC #### [facility] [address] [place] [address] Dr. Kasia Nath Lymphocytes/100 WBC (Bld) 24.8 % Normal 20.5-60.0 [facility] Comment on above: Performed By: #### P OCGLUC #### [facility] [address] [place] [address] Dr. Kasia Nath MANUAL DIFF REQ NO Normal [facility] Comment on above: Performed By: #### P OCGLUC #### [facility] [address] [place] [address] Dr. Kasia Nath MCH (RBC) [Entitic mass] 28.7 pg Normal 26.7-34.0 [facility] Comment on above: Performed By: #### P OCGLUC #### [facility] [address] [address] [address] Kasia Nath MCHC (RBC) [Mass/Vol] 32.7 g/dL Normal 29.9-35.2 [facility] Comment on above: Performed By: #### P OCGLUC #### [facility] [address] [address] [address] Kasia Nath MCV (RBC) [Entitic vol] 87.9 fL Normal 81.0-99.0 [facility] Comment on above: Performed By: #### P OCGLUC #### [facility] [address] [place] [address] Dr. Kasia Nath MONO # 0.8 103/ul Normal 0.3-0.8 [facility] Comment on above: Performed By: #### P OCGLUC #### [facility] [address] [place] [address] Dr. Kasia Nath Monocytes/100 WBC (Bld) 9.6 % Normal 1.7-12.0 [facility] Comment on above: Performed By: #### P OCGLUC #### [facility] [address] [place] [address] Dr. Kasia Nath NEUT # 5.0 103/ul Normal 1.4-6.5 [facility] Comment on above: Performed By: #### P OCGLUC #### [facility] [address] [place] [address] Dr. Kasia Nath Neutrophils/100 WBC (Bld) 62.1 % Normal 43.0-75.0 [facility] Comment on above: Performed By: #### P OCGLUC #### [facility] [address] [place] [address] Dr. Kasia Nath Platelet mean volume (Bld) [Entitic vol] 10.7 fL Normal 9.5-13.5 [facility] Comment on above: Performed By: #### P OCGLUC #### [facility] [address] [address] [address] Kasia Nath PLT 204 103/ul Normal 150-450 [facility] Comment on above: Performed By: #### P OCGLUC #### [facility] [address] [address] [address] Kasia Nath RBC 4.04 106/ul Critically low 4.20-5.40 [facility] Comment on above: Performed By: #### P OCGLUC #### [facility] [address] [address] [address] Kasia Nath WBC 8.0 103/ul Normal 4.0-11.0 [facility] Comment on above: Performed By: #### P OCGLUC #### [facility] [address] [address] [address] Kasia Nath GLYCOHEMOGLOBIN A1Con 2022 ADA RECOMMENDATION SEE BELOW Normal [facility] Comment on above: Result Comment: ADA RECOMMENDED LIMIT 4.0 - 6.0 ADA THERAPEUTIC TARGET < 7.0 ACTION SUGGESTED > 7.0 Performed By: #### A 1C ####[facility] [address] [address]Dr. Kasia Nath Glucose [Mass/Vol] 298 mg/dL Normal [facility] Comment on above: Performed By: #### A 1C ####[facility] [address] [address]Dr. Kasia Nath HbA1c (Bld) [Mass fraction] 12.0 % Critically high 4.5-6.2 [facility] Comment on above: Performed By: #### A 1C ####[facility] [address] [address]Dr[address] Kasia Nath POINT OF CARE GLUCOSEon 12-14 Glucose [Mass/Vol] 227 mg/dL Critically high 74-106 [facility] Comment on above: Performed By: #### C BC #### [facility] [address] [address] [address] Kasia Nath Glucose [Mass/Vol] 214 mg/dL Critically high 74-106 [facility] Comment on above: Performed By: #### C BC #### [facility] [address] [place], [place] [address] Dr. Kasia Nath PROF 14(COMP METB)on 023 Albumin [Mass/Vol] 2.6 g/dL Critically low 3.4-5.0 [facility] Comment on above: Performed By: #### B TICKET MAKER, CMP ####[facility] [address] [id number][address] Kasia Nath Albumin/Globulin [Mass ratio] 0.6 {ratio} Normal [facility] Comment on above: Performed By: #### B TICKET MAKER, CMP ####[facility] [address] [id number][address] Kasia Nath ALP [Catalytic activity/Vol] 94 U/L Normal 46-116 [facility] Comment on above: Performed By: #### B TICKET MAKER, CMP ####[facility] [address] [id number]. Kasia Nath ALT [Catalytic activity/Vol] 16 U/L Normal 14-59 [facility] Comment on above: Performed By: #### B TICKET MAKER, CMP ####[facility] [address] [id number][address] Kasia Nath Anion gap [Moles/Vol] 10.6 mmol/L Normal [facility] Comment on above: Performed By: #### B TICKET MAKER, CMP ####[facility] [address] [id number]. Kasia Nath AST [Catalytic activity/Vol] 15 U/L Normal 15-37 [facility] Comment on above: Performed By: #### B TICKET MAKER, CMP ####[facility] [address] [id number][address] Kasia Nath Bilirubin [Mass/Vol] 0.8 mg/dL Normal 0.2-1.0 [facility] Comment on above: Performed By: #### B TICKET MAKER, CMP ####[facility] [address] [id number] Kasia Nath Calcium [Mass/Vol] 8.5 mg/dL Normal 8.5-10.1 [facility] Comment on above: Performed By: #### B TICKET MAKER, CMP ####[facility] [address] [address]Dr. Kasia Nath Chloride [Moles/Vol] 102 mmol/L Normal 98-107 [facility] Comment on above: Performed By: #### B TICKET MAKER, CMP ####[facility] [address] [place], [place] [address]Dr. Kasia Nath CO2 [Moles/Vol] 30.2 mmol/L Normal 21.0-32.0 [facility] Comment on above: Performed By: #### B TICKET MAKER, CMP ####[facility] [address] [place], [place] [address]Dr. Kasia Nath Creatinine [Mass/Vol] 0.94 mg/dL Normal 0.55-1.02 [facility] Comment on above: Performed By: #### B TICKET MAKER, CMP ####[facility] [address] [place], [place] [address]Dr. Kasia Nath EGFR-AF FAROESE >60 Normal >=60 [facility] Comment on above: Performed By: #### B TICKET MAKER, CMP ####[facility] [address] [place], [place] [address]Dr. Kasia Nath EGFR-NON AF FAROESE 58 mL/min/1.73m2 Critically low >=60 [facility] Comment on above: Performed By: #### B TICKET MAKER, CMP ####[facility] [address] [place], [place] [address]Dr. Kasia Nath Globulin (S) [Mass/Vol] 4.0 g/dL Normal [facility] Comment on above: Performed By: #### B TICKET MAKER, CMP ####[facility] [address] [place], [place] [address]Dr. Kasia Nath Glucose [Mass/Vol] 150 mg/dL Critically high 74-106 T [facility] Comment on above: Performed By: #### B TICKET MAKER, CMP ####[facility] [address] [place], [place] [address]Dr. Kasia Nath Potassium [Moles/Vol] 3.8 mmol/L Normal 3.5-5.1 [facility] Comment on above: Performed By: #### B TICKET MAKER, CMP ####[facility] [address] [address]Dr. Kasia Nath Protein [Mass/Vol] 6.6 g/dL Normal 6.4-8.2 [facility] Comment on above: Performed By: #### B TICKET MAKER, CMP ####[facility] [address] [address]Dr. Kasia Nath Sodium [Moles/Vol] 139 mmol/L Normal 136-145 [facility] Comment on above: Performed By: #### B TICKET MAKER, CMP ####[facility] [address] [address]Dr. Kasia Nath Urea nitrogen [Mass/Vol] 24.0 mg/dL Critically high 7.0-18.0 [facility] Comment on above: Performed By: #### B TICKET MAKER, CMP ####[facility] [address] [place], [place] [address]Dr. Kasia Nath Urea nitrogen/Creatinine [Mass ratio] 25.5 mg/mg Normal [facility] Comment on above: Performed By: #### B TICKET MAKER, CMP ####[facility] [address] [place], [place] [address]Dr. Kasia Nath BNPon 01-01-2023 Natriuretic peptide B (Bld) [Mass/Vol] 1419.0 pg/mL Normal <=1,800.0 [facility] Comment on above: Performed By: #### B TICKET MAKER #### [facility] [address] [place] [address] Dr. Kasia Nath CARDIAC EMERY 3-6on 3 CK [Catalytic activity/Vol] 80 U/L Normal 26-192 [facility] Comment on above: Performed By: #### P OCGLUC #### [facility] [address] [place] [address] Dr. Kasia Nath CK.MB [Mass/Vol] 1.85 ng/mL Normal <=3.60 [facility] Comment on above: Performed By: #### P OCGLUC #### [facility] [address] [place] [address] Dr. Kasia Nath HSTROP 13.2 pg/mL Normal 4.0-51.3 [facility] Comment on above: Result Comment: CUT- OFF POINTS HAVE BEEN ESTABLISHED BASED ON THE FOURTH UNIVERSAL DEFINITIONS OF MYOCARDIAL INFARCTION. THE UPPER REFERENCE LIMIT (URL) OF TROPONIN, DEFINED THE 99TH PERCENTILE OF cTnI DISTRIBUTION IN A REFERENCE POPULATION, HAS BEEN CONFIRMED THE DECISION THRESHOLD FOR GA DIAGNOSIS. Performed By: #### P OCGLUC #### [facility] [address] [place] [address] Dr. Kasia Nath CK [Catalytic activity/Vol] 73 U/L Normal 26-192 [facility] Comment on above: Performed By: #### P OCGLUC #### [facility] [address] [place] [address] Dr. Kasia Nath CK.MB [Mass/Vol] 1.71 ng/mL Normal <=3.60 [facility] Comment on above: Performed By: #### P OCGLUC #### [facility] [address] [place] [address] Dr. Kasia Nath HSTROP 13.6 pg/mL Normal 4.0-51.3 [facility] Comment on above: Result Comment: CUT- OFF POINTS HAVE BEEN ESTABLISHED BASED ON THE FOURTH UNIVERSAL DEFINITIONS OF MYOCARDIAL INFARCTION. THE UPPER REFERENCE LIMIT (URL) OF TROPONIN, DEFINED THE 99TH PERCENTILE OF cTnI DISTRIBUTION IN A REFERENCE POPULATION, HAS BEEN CONFIRMED THE DECISION THRESHOLD FOR GA DIAGNOSIS. Performed By: #### P OCGLUC #### [facility] [address] [place] [address] Dr. Kasia Nath CARDIAC EMERY ADMITon 023 CK [Catalytic activity/Vol] 71 U/L Normal 26-192 [facility] Comment on above: Performed By: #### C BC #### [facility] [address] [place] [address] Dr. Kasia Nath CK.MB [Mass/Vol] 1.69 ng/mL Normal <=3.60 [facility] Comment on above: Performed By: #### C BC #### [facility] [address] [place] [address] Dr. Kasia Nath HSTROP 13.0 pg/mL Normal 4.0-51.3 [facility] Comment on above: Result Comment: CUT- OFF POINTS HAVE BEEN ESTABLISHED BASED ON THE FOURTH UNIVERSAL DEFINITIONS OF MYOCARDIAL INFARCTION. THE UPPER REFERENCE LIMIT (URL) OF TROPONIN, DEFINED THE 99TH PERCENTILE OF cTnI DISTRIBUTION IN A REFERENCE POPULATION, HAS BEEN CONFIRMED THE DECISION THRESHOLD FOR GA DIAGNOSIS. Performed By: #### C BC #### [facility] [address] [place] [address] Dr. Kasia Nath GRETTA 75 ng/mL Normal 9-82 [facility] Comment on above: Performed By: #### C BC #### [facility] [address] [place] [address] Dr. Kasia Nath CBC AUTO DIFFon 01-01-2023 BASO # 0.1 103/ul Normal 0.0-0.1 [facility] Comment on above: Performed By: #### C BC #### [facility] [address] [place] [address] Dr. Kasia Nath Basophils/100 WBC (Bld) 1.1 % Normal 0.2-2.0 [facility] Comment on above: Performed By: #### C BC #### [facility] [address] [place] [address] Dr. Kasia Nath EO # 0.2 103/ul Normal 0.0-0.7 [facility] Comment on above: Performed By: #### C BC #### [facility] [address] [place] [address] Dr. Kasia Nath Eosinophils/100 WBC (Bld) 2.9 % Normal 0.9-7.0 [facility] Comment on above: Performed By: #### C BC #### [facility] [address] [place] [address] Dr. Kasia Nath Erythrocyte distribution width (RBC) [Ratio] 13.8 % Normal 11.0-15.0 [facility] Comment on above: Performed By: #### C BC #### [facility] [address] [place] [address] Dr. Kasia Nath Hematocrit (Bld) [Volume fraction] 36.2 % Normal 36.0-48.0 [facility] Comment on above: Performed By: #### C BC #### [facility] [address] [place] [address] Dr. Kasia Nath Hemoglobin (Bld) [Mass/Vol] 12.1 g/dL Normal 12.0-16.0 [facility] Comment on above: Performed By: #### C BC #### [facility] [address] [place] [address] Dr. Kasia Nath IG # 0.02 10e3/ul Normal 0.00-0.03 [facility] Comment on above: Performed By: #### C BC #### [facility] [address] [place] [address] Dr. Kasia Nath IG % 0.3 % Normal 0.0-0.5 [facility] Comment on above: Performed By: #### C BC #### [facility] [address] [place] [address] Dr. Kasia Nath LYMPH # 1.5 103/ul Normal 1.2-3.8 [facility] Comment on above: Performed By: #### C BC #### [facility] [address] [place] [address] Dr. Kasia Nath Lymphocytes/100 WBC (Bld) 19.9 % Critically low 20.5-60.0 [facility] Comment on above: Performed By: #### C BC #### [facility] [address] [place] [address] Dr. Kasia Nath MANUAL DIFF REQ NO Normal [facility] Comment on above: Performed By: #### C BC #### [facility] [address] [place] [address] Dr. Kasia Nath MCH (RBC) [Entitic mass] 29.7 pg Normal 26.7-34.0 [facility] Comment on above: Performed By: #### C BC #### [facility] [address] [place] [address] Dr. Kasia Nath MCHC (RBC) [Mass/Vol] 33.4 g/dL Normal 29.9-35.2 [facility] Comment on above: Performed By: #### C BC #### [facility] [address] [address] [address] Kasia Nath MCV (RBC) [Entitic vol] 88.9 fL Normal 81.0-99.0 [facility] Comment on above: Performed By: #### C BC #### [facility] [address] [address] [address] Kasia Nath MONO # 0.6 103/ul Normal 0.3-0.8 [facility] Comment on above: Performed By: #### C BC #### [facility] [address] [address] [address] Kasia Nath Monocytes/100 WBC (Bld) 8.0 % Normal 1.7-12.0 [facility] Comment on above: Performed By: #### C BC #### [facility] [address] [place] [address] Dr. Kasia Nath NEUT # 5.1 103/ul Normal 1.4-6.5 [facility] Comment on above: Performed By: #### C BC #### [facility] [address] [place] [address] Dr. Kasia Nath Neutrophils/100 WBC (Bld) 67.8 % Normal 43.0-75.0 [facility] Comment on above: Performed By: #### C BC #### [facility] [address] [address] [address] Kasia Nath Platelet mean volume (Bld) [Entitic vol] 10.4 fL Normal 9.5-13.5 [facility] Comment on above: Performed By: #### C BC #### [facility] [address] [address] [address] Kasia Nath PLT 200 103/ul Normal 150-450 [facility] Comment on above: Performed By: #### C BC #### [facility] [address] [place] [address] Dr. Kasia Nath RBC 4.07 106/ul Critically low 4.20-5.40 [facility] Comment on above: Performed By: #### C BC #### [facility] [facility] [address], [place] [address] Dr. Kasia Nath WBC 7.5 103/ul Normal 4.0-11.0 [facility] Comment on above: Performed By: #### C BC #### [facility] [address], [place] [address] CHEST WO CONon [...] two extremes (Agatston score 101-1000). [email or web address]://pubs.rsna.org/do i/abs/[email or web address] Electronically authenticated by: RENETTA MICHAELS Date: 2023-01-01 14:55 Normal [facility] Covid-19 PCR ([facility]on 12-14 SARS-CoV-2 (COVID-19) RNA FERN+probe Ql (Unsp spec) Not detected Normal NOT DETECTED [facility] Comment on above: Result Comment: [...] for this test is supported by the Radio Mechanic Apprentice of Health and Human Service's declaration that [...] longer be used). Performed By: #### C [facility] #### [facility] [address] [place] [address] Dr. Kasia Nath ECHO LIMITED STUDYon 023 ECHO LIMITED STUDY Patient: SAIMA CALL Exam Date: 01/01/2023 : 1945 Gender:F Ordering : MARTINE GUERRERO . Admission #: [id number] Family : Order #: [id number] CLICK HERE TO VIEW EXAM ECHOCARDIOGRAM REPORT [...] 13:19 Normal [facility] GLYCOHEMOGLOBIN A1Con 2022 ADA RECOMMENDATION SEE BELOW Normal [facility] Comment on above: Result Comment: ADA RECOMMENDED LIMIT 4.0 - 6.0 ADA THERAPEUTIC TARGET < 7.0 ACTION SUGGESTED > 7.0 Performed By: #### P OCGLUC #### [facility] [address] [place] [address] Dr. Kasia Nath Glucose [Mass/Vol] 318 mg/dL Normal [facility] Comment on above: Performed By: #### P OCGLUC #### [facility] [address] [place] [address] [address] Kasia Nath HbA1c (Bld) [Mass fraction] 12.7 % Critically high 4.5-6.2 [facility] Comment on above: Performed By: #### P OCGLUC #### [facility] [address] [address] [address] Kasia Nath POINT OF CARE GLUCOSEon 12-14 Glucose [Mass/Vol] 162 mg/dL Critically high 74-106 T [facility] Comment on above: Performed By: #### P OCGLUC ####[facility] [address] [place], [place] [address]ImDr. Kasia Nath Glucose [Mass/Vol] 213 mg/dL Critically high 74-106 [facility] Comment on above: Performed By: #### P OCGLUC ####[facility] [address] [place], [place] [address]BzDr. Kasia Nath Glucose [Mass/Vol] 248 mg/dL Critically high 74-106 [facility] Comment on above: Performed By: #### P OCGLUC #### [facility] [address] [address] [address] Kasia Nath PROF CHEM 8 (BAS METB)on Anion gap [Moles/Vol] 11.8 mmol/L Normal [facility] Comment on above: Performed By: #### C BC #### [facility] [address] [place] [address] Dr. Kasia Nath Calcium [Mass/Vol] 8.4 mg/dL Critically low 8.5-10.1 [facility] Comment on above: Performed By: #### C BC #### [facility] [address] [address] [address] Kasia Nath Chloride [Moles/Vol] 102 mmol/L Normal 98-107 [facility] Comment on above: Performed By: #### C BC #### [facility] [address] [place] [address] [address] Kasia Nath CO2 [Moles/Vol] 28.4 mmol/L Normal 21.0-32.0 [facility] Comment on above: Performed By: #### C BC #### [facility] [address] [address] [address] Kasia Nath Creatinine [Mass/Vol] 1.09 mg/dL Critically high 0.55-1.02 [facility] Comment on above: Performed By: #### C BC #### [facility] [address] [address] [address] Kasia Nath EGFR-AF FAROESE 59 mL/min/1.73m2 Critically low >=60 [facility] Comment on above: Performed By: #### C BC #### [facility] [address] [address] [address] Kasia Nath EGFR-NON AF FAROESE 49 mL/min/1.73m2 Critically low >=60 [facility] Comment on above: Performed By: #### C BC #### [facility] [address] [address] [address] Kasia Nath Glucose [Mass/Vol] 247 mg/dL Critically high 74-106 [facility] Comment on above: Performed By: #### C BC #### [facility] [address] [address] [address] Kasia Nath Potassium [Moles/Vol] 4.2 mmol/L Normal 3.5-5.1 [facility] Comment on above: Performed By: #### C BC #### [facility] [address] [address] [address] Kasia Nath Sodium [Moles/Vol] 138 mmol/L Normal 136-145 [facility] Comment on above: Performed By: #### C BC #### [facility] [address] [place] [address] [address] Kasia Nath Urea nitrogen [Mass/Vol] 28.0 mg/dL Critically high 7.0-18.0 [facility] Comment on above: Performed By: #### C BC #### [facility] [address] [address] [address] Kasia Nath Urea nitrogen/Creatinine [Mass ratio] 25.7 mg/mg Normal [facility] Comment on above: Performed By: #### C BC #### [facility] [address] [id number] Kasia Nath XR CHEST 1 Von [...] 05:38 Normal [facility] ECHOCARDIO M/2D COMPLETEon 1 11-15-2021 ECHOCARDIO M/2D COMPLETE Patient: JOE CALL Exam Date: 09/15/2022 : 1945 Gender:F Ordering : YAMEL PANDYA [facility] Admission #: [id number] Family : DR SHANTEL STEVEN M.D. Order #: [id number] CLICK HERE TO VIEW EXAM ECHOCARDIOGRAM REPORT [...] 3.30 cm Aortic Valve AoV Area (Peak Ricardo): 2.68 cm2, 2.68 cm2 AoV Area (VTI): [...] M.D. on 09/15/2022 at 18:17 Normal [facility] GI PANEL (PCR)on 05-02-2022 Adenovirus F 40/41 Not detected Normal NOT DETECTED [facility] Comment on above: Performed By: #### P OCGLUC #### [facility] [address] [place] [address] Dr. Kasia Nath Astrovirus Not detected Normal NOT DETECTED [facility] Comment on above: Performed By: #### P OCGLUC #### [facility] [address] [place] [address] Dr. Kasia Nath C. Diff toxin A/B Not detected Normal NOT DETECTED [facility] Comment on above: Performed By: #### P OCGLUC #### [facility] [address] [place] [address] Dr. Kasia Nath Campylobacter Not detected Normal NOT DETECTED [facility] Comment on above: Performed By: #### P OCGLUC #### [facility] [address] [place] [address] Dr. Kasia Nath Cryptosporidium Not detected Normal NOT DETECTED [facility] Comment on above: Performed By: #### P OCGLUC #### [facility] [address] [place] [address] Dr. Kasia Nath Cyclos. Cayetanensis Not detected Normal NOT DETECTED [facility] Comment on above: Performed By: #### P OCGLUC #### [facility] [address] [place] [address] Dr. Kasia Nath E. Coli O157 Not Applicable Normal Not Applicable [facility] Comment on above: Performed By: #### P OCGLUC #### [facility] [address] [place] [address] Dr. Kasia Nath E. histolytica Not detected Normal NOT DETECTED [facility] Comment on above: Performed By: #### P OCGLUC #### [facility] [address] [place] [address] Dr. Kasia Nath EAEC Not detected Normal NOT DETECTED [facility] Comment on above: Performed By: #### P OCGLUC #### [facility] [address] [place] [address] Dr. Kasia Nath EIEC Not detected Normal NOT DETECTED [facility] Comment on above: Performed By: #### P OCGLUC #### [facility] [address] [place] [address] Dr. Kasia Nath EPEC Detected Abnormal NOT DETECTED [facility] Comment on above: Performed By: #### P OCGLUC #### [facility] [address] [place] [address] [address] Kasia Nath ETEC Not detected Normal NOT DETECTED [facility] Comment on above: Performed By: #### P OCGLUC #### [facility] [address] [place] [address] [address] Kasia Nath G. Lamblia Not detected Normal NOT DETECTED [facility] Comment on above: Performed By: #### P OCGLUC #### [facility] [address] [address] [address] Kasia KHAN CONTROLS PASSED Normal [facility] Comment on above: Performed By: #### P OCGLUC #### [facility] [address] [address] [address] Kasia THOMPSON JUNO HEADER GI PANEL BACTERIA Normal [facility] Comment on above: Performed By: #### P OCGLUC #### [facility] [address] [place] [address] [address] Kasia GE ECOLI GI PANEL DIARRHEAGEN IC E.COLI / SHIGELLA Normal [facility] Comment on above: Performed By: #### P OCGLUC #### [facility] [address] [place] [address] Dr. Kasia GE INFO SEE BELOW Normal [facility] Comment on above: Result Comment: EAEC - Enteroaggregative E. Coli EPEC- Enteropathogenic E. Coli ETEC- Enterotoxigenic E. Coli lt/st STEC- Shigella-like toxin-producing E. Coli stx1/stx2 EIEC- Shigella/Enteroinvasive E. Coli Performed By: #### P OCGLUC #### [facility] [address] [place] [address] [address] Kasia GE PARASITES GI PANEL PARASITES Normal [facility] Comment on above: Performed By: #### P OCGLUC #### [facility] [address] [address] [address] Kasia GE VIRUS GI PANEL VIRUSES Normal [facility] Comment on above: Performed By: #### P OCGLUC #### [facility] [address] [place] [address] Dr. Kasia Naht Norovirus GI/GII Not detected Normal NOT DETECTED [facility] Comment on above: Performed By: #### P OCGLUC #### [facility] [address] [place] [address] Dr. Kasia Garland. Shigelloides Not detected Normal NOT DETECTED [facility] Comment on above: Performed By: #### P OCGLUC #### [facility] [address] [place] [address] Dr. Kasia Nath Rotavirus A Not detected Normal NOT DETECTED [facility] Comment on above: Performed By: #### P OCGLUC #### [facility] [address] [place] [address] Dr. Kasia Nath Salmonella Not detected Normal NOT DETECTED [facility] Comment on above: Performed By: #### P OCGLUC #### [facility] [address] [place] [address] Dr. Kasia Nath Sapovirus Not detected Normal NOT DETECTED [facility] Comment on above: Performed By: #### P OCGLUC #### [facility] [address] [place] [address] Dr. Kasia Nath STEC Not detected Normal NOT DETECTED [facility] Comment on above: Performed By: #### P OCGLUC #### [facility] [address] [place] [address] Dr. Kasia Nath Vibrio Not detected Normal NOT DETECTED [facility] Comment on above: Performed By: #### P OCGLUC #### [facility] [address] [place] [address] Dr. Kasia Nath Vibrio Cholera Not detected Normal NOT DETECTED [facility] Comment on above: Performed By: #### P OCGLUC #### [facility] [address] [place] [address] Dr. Kasia Nath Y. Enterocolitica Not detected Normal NOT DETECTED [facility] Comment on above: Performed By: #### P OCGLUC #### [facility] [address] [place] [address] Dr. Kasia Nath [facility] BLD IMMUNO SCREENon 06-2 OCCULT BLOOD Negative Normal NEGATIVE [facility] Comment on above: Performed By: #### C BC #### [facility] [address] [address] [address] Kasia Nath XR knee BI 4Von 08-25-2021 XR knee BI 4V [facility] [employer] Other XR knee BI 4V [facility] [employer] Other XR knee BI 4V [address] [place] [address] [employer] Other XR knee BI 4V [address] [employer] Other XR knee BI 4V XRay Report [facility] [employer] Other XR knee BI 4V Signed [employer] Other XR knee BI 4V Patient: Joe Call MR#: [id number] [employer] Other XR knee BI 4V 0 [employer] Other XR knee BI 4V : 1945 Acct:[id number] [employer] Other XR knee BI 4V Age/Sex: 76 / F ADM Date: 08/25/21 [employer] Other XR knee BI 4V Loc: SOXD Room: Type : REG CLI [employer] Other XR knee BI 4V Attending Dr: Akbar Cui II, MD [employer] Other XR knee BI 4V Ordering Provider: Akbar Cui MD [employer] Other XR knee BI 4V Date of Service: 08/25/21 [employer] Other XR knee BI 4V XR/XR knee BI 4V: Pain in right knee;Pain in left knee [employer] Other XR knee BI 4V Copies to: Akbar Cui MD [employer] Other XR knee BI 4V XR knee BI 4V 2020 1:32 PM [employer] Other XR knee BI 4V SIGNS AND SYMPTOMS: Bilateral knee pain with decreased range of motion, weakness [employer] Other XR knee BI 4V PROTOCOL: Frontal, lateral, and sunrise views of the bilateral knees [employer] Other XR knee BI 4V COMPARISON: None [employer] Other XR knee BI 4V FINDINGS: [employer] Other XR knee BI 4V There is mild narrow ing of the medial weightbearing joint spaces. There is mild patellofemoral [employer] Other XR knee BI 4V joint space loss. Th ere is spurring of the poles of the patella bilaterally. There is mild lateral [employer] Other XR knee BI 4V patellar subluxation bilaterally. There is no evidence of acute displaced fracture. Well-corticated [employer] Other XR knee BI 4V ossific structures o r separate from the right medial weightbearing joint space. This may represent a [employer] Other XR knee BI 4V calcified loose bodies. [employer] Other XR knee BI 4V X R/XR knee BI 4V [employer] Other XR knee BI 4V IMPRESSION: [employer] Other XR knee BI 4V Degenerative changes are noted are noted bilaterally, as above. [employer] Other XR knee BI 4V Well-corticated ossi fic structures or separate from the right medial weightbearing joint space. This [employer] Other XR knee BI 4V may represent a calcified loose bodies. [employer] Other XR knee BI 4V No acute displaced fracture. [employer] Other XR knee BI 4V There is mild latera l subluxation of the patella within the patellofemoral joint space bilaterally. [employer] Other XR knee BI 4V Impression dictated by: Emery Lobo M.D.08/25/2021 2:51 PM [employer] Other XR knee BI 4V Dictation Location: [place] [address] [employer] Other XR knee BI 4V Transcribed By: PWS 08/25/21 1451 [employer] Other XR knee BI 4V Dictated By: Emery Lobo II, MD 08/25/21 [facility] [employer] Other XR knee BI 4V Signed By: [employer] Other XR knee BI 4V 08/25/21 1451 [employer] Other XR pelvis 1-2Von 08-25-2021 XR pelvis 1-2V XR/XR pelvis 1-2V: Pain in right knee;Pain in left knee [employer] Other XR pelvis 1-2V XR pelvis 1-2V 08/25/2021 1:32 PM [employer] Other XR pelvis 1-2V SIGNS AND SYMPTOMS: Bilateral generalized knee pain, limited range of motion with weakness [employer] Other XR pelvis 1-2V PROTOCOL: Frontal radiograph of the pelvis [employer] Other XR pelvis 1-2V There is mild narrow ing of the weightbearing joint spaces. Mild degenerative changes are noted in [employer] Other XR pelvis 1-2V the symphysis pubis. There is no evidence of fracture or dislocation. Vascular calcifications are [employer] Other XR pelvis 1-2V present in the pelvis. [employer] Other XR pelvis 1-2V X R/XR pelvis 1-2V [employer] Other XR pelvis 1-2V No fracture or dislocation. [employer] Other XR pelvis 1-2V Mild degenerative changes are noted in the joint space of the hips. [employer] Other XR pelvis 1-2V Impression dictated by: Emery Lobo M.D.08/25/2021 2:54 PM [employer] Other XR pelvis 1-2V Transcribed By: [facility] 08/25/21 [facility] [employer] Other XR pelvis 1-2V Dictated By: Emery Lobo II, MD 08/25/21 [facility] [employer] Other XR pelvis 1-2V 08/25/21 [facility] [employer] Other Vital Signs Date Time Vital Sign Value Performing Clinician Facility 08-17-2025 13:20-0400 Diastolic blood pressure 65 mm[Hg] Shantel Steven MD Work Phone: [facility] 08-17-2025 13:20-0400 Heart rate 61 /min Shantel Steven MD Work Phone: [facility] 08-17-2025 13:20-0400 Systolic blood pressure 144 mm[Hg] Shantel Steven MD Work Phone: [facility] 08-05-2025 09:49-0400 Diastolic blood pressure 90 mm[Hg] Shantel Steven MD Work Phone: [facility] 08-05-2025 09:49-0400 Heart rate 67 /min Shantel Steven MD Work Phone: [facility] 08-05-2025 09:49-0400 Systolic blood pressure 176 mm[Hg] Shantel Steven MD Work Phone: [facility] 08-05-2025 09:39-0400 Body height 165.1 cm Shantel Steven MD Work Phone: [facility] 08-05-2025 09:39-0400 Body mass index (BMI) [Ratio] 42.7 kg/m2 Shantel Steven MD Work Phone: [facility] 08-05-2025 09:39-0400 Body weight 116.57 kg Shantel Steven MD Work Phone: [facility] 08-01-2025 08:56-0400 Body temperature 97.6 [degF] Shantel Steven MD Work Phone: [facility] 08-01-2025 08:56-0400 Diastolic blood pressure 84 mm[Hg] Shantel Steven MD Work Phone: [facility] 08-01-2025 08:56-0400 Heart rate 79 /min Shantel Steven MD Work Phone: [facility] 08-01-2025 08:56-0400 Inhaled oxygen flow rate 2 L/min Shantel Steven MD Work Phone: [facility] 08-01-2025 08:56-0400 Respiratory rate 16 /min Shantel Steven MD Work Phone: [facility] 08-01-2025 08:56-0400 SaO2% (BldA) [Mass fraction] 96 % Shantel Steven MD Work Phone: [facility] 08-01-2025 08:56-0400 Systolic blood pressure 162 mm[Hg] Shantel Steven MD Work Phone: [facility] 08-01-2025 08:54-0400 Body weight 118.3 kg Shantel Steven MD Work Phone: [facility] 07-30-2025 12:56-0400 Body height 165.1 cm Shantel Steven MD Work Phone: [facility] 07-30-2025 08:00-0400 Inhaled oxygen concentration 2 % Shantel Steven MD Work Phone: [facility] 07-29-2025 17:00-0400 Diastolic blood pressure 70 mm[Hg] Shantel Steven MD Work Phone: [facility] 07-29-2025 17:00-0400 Heart rate 61 /min Shantel Steven MD Work Phone: [facility] 07-29-2025 17:00-0400 Inhaled oxygen flow rate 2 L/min Shantel Steven MD Work Phone: [facility] 07-29-2025 17:00-0400 Respiratory rate 22 /min Shantel Steven MD Work Phone: [facility] 07-29-2025 17:00-0400 SaO2% (BldA) [Mass fraction] 98 % Shantel Steven MD Work Phone: [facility] 07-29-2025 17:00-0400 Systolic blood pressure 162 mm[Hg] Shantel Steven MD Work Phone: [facility] 07-29-2025 10:02-0400 Body height 165.1 cm Shantel Steven MD Work Phone: [facility] 07-29-2025 10:02-0400 Body weight 115.21 kg Shantel Steven MD Work Phone: [facility] 07-20-2025 14:19-0400 Body height 165.1 cm Shantel Steven MD Work Phone: [facility] 07-20-2025 14:19-0400 Body mass index (BMI) [Ratio] 42.3 kg/m2 Shantel Steven MD Work Phone: [facility] 07-20-2025 14:19-0400 Body temperature 97.3 [degF] Shantel Steven MD Work Phone: [facility] 07-20-2025 14:19-0400 Body weight 115.21 kg Shantel Steven MD Work Phone: [facility] 07-20-2025 14:19-0400 Diastolic blood pressure 73 mm[Hg] Shantel Steven MD Work Phone: [facility] 07-20-2025 14:19-0400 Heart rate 72 /min Shantel Steven MD Work Phone: [facility] 07-20-2025 14:19-0400 SaO2% (BldA) [Mass fraction] 98 % Shantle Steven MD Work Phone: [facility] 07-20-2025 14:19-0400 Systolic blood pressure 170 mm[Hg] Shantel Steven MD Work Phone: [facility] 06-04-2025 10:17-0400 Body height 165.1 cm Shantel Steven MD Work Phone: [facility] 06-04-2025 10:17-0400 Body mass index (BMI) [Ratio] 43.9 kg/m2 Shantel Steven MD Work Phone: [facility] 06-04-2025 10:17-0400 Body weight 119.74 kg Shantel Steven MD Work Phone: [facility] 06-04-2025 10:17-0400 Diastolic blood pressure 71 mm[Hg] Shantel Steven MD Work Phone: [facility] 06-04-2025 10:17-0400 Heart rate 57 /min Shantel Steven MD Work Phone: [facility] 06-04-2025 10:17-0400 Systolic blood pressure 161 mm[Hg] Shantel Steven MD Work Phone: [facility] 05-21-2025 11:08-0400 Body height 165.1 cm Shantel Steven MD Work Phone: [facility] 05-21-2025 11:08-0400 Body mass index (BMI) [Ratio] 44.7 kg/m2 Shantel Steven MD Work Phone: [facility] 05-21-2025 11:08-0400 Body weight 122.07 kg Shantel Steven MD Work Phone: [facility] 05-21-2025 11:08-0400 Diastolic blood pressure 93 mm[Hg] Shantel Steven MD Work Phone: [facility] 05-21-2025 11:08-0400 Heart rate 70 /min Shantel Steven MD Work Phone: [facility] 05-21-2025 11:08-0400 Respiratory rate 14 /min Shantel Steven MD Work Phone: [facility] 05-21-2025 11:08-0400 SaO2% (BldA) [Mass fraction] 95 % Shantel Steven MD Work Phone: [facility] 05-21-2025 11:08-0400 Systolic blood pressure 180 mm[Hg] Shantel Steven MD Work Phone: [facility] 04-21-2025 14:20-0400 Body height 165.1 cm Shantel Steven MD Work Phone: [facility] 04-21-2025 14:20-0400 Body mass index (BMI) [Ratio] 42.4 kg/m2 Shantel Steven MD Work Phone: [facility] 04-21-2025 14:20-0400 Body weight 115.66 kg Shantel Steven MD Work Phone: [facility] 04-21-2025 14:20-0400 Diastolic blood pressure 80 mm[Hg] Shantel Steven MD Work Phone: [facility] 04-21-2025 14:20-0400 Heart rate 63 /min Shantel Steven MD Work Phone: [facility] 04-21-2025 14:20-0400 Systolic blood pressure 165 mm[Hg] Shantel Steven MD Work Phone: [facility] 04-16-2025 10:20-0400 Body height 165.1 cm Shantel Steven MD Work Phone: [facility] 04-16-2025 10:20-0400 Body mass index (BMI) [Ratio] 42.4 kg/m2 Shantel Steven MD Work Phone: [facility] 04-16-2025 10:20-0400 Body weight 115.66 kg Shantel Steven MD Work Phone: [facility] 04-16-2025 10:20-0400 Diastolic blood pressure 77 mm[Hg] Shantel Steven MD Work Phone: [facility] 04-16-2025 10:20-0400 Heart rate 63 /min Shantel Steven MD Work Phone: [facility] 04-16-2025 10:20-0400 Respiratory rate 12 /min Shantel Steven MD Work Phone: [facility] 04-16-2025 10:20-0400 SaO2% (BldA) [Mass fraction] 96 % Shantel Steven MD Work Phone: [facility] 04-16-2025 10:20-0400 Systolic blood pressure 137 mm[Hg] Shantel Steven MD Work Phone: [facility] 03-24-2025 13:57-0400 Body height 165.1 cm Shantel Steven MD Work Phone: [facility] 03-24-2025 13:57-0400 Body mass index (BMI) [Ratio] 42.3 kg/m2 Shantel Steven MD Work Phone: [facility] [facility] 03-24-2025 13:57-0400 Body weight 115.21 kg Shantel Steven MD Work Phone: [facility] 03-24-2025 13:57-0400 Diastolic blood pressure 76 mm[Hg] Shantel Steven MD Work Phone: [facility] 03-24-2025 13:57-0400 Heart rate 56 /min Shantel Steven MD Work Phone: [facility] 03-24-2025 13:57-0400 Systolic blood pressure 179 mm[Hg] Shantel Steven MD Work Phone: [facility] 03-12-2025 19:10-0400 Diastolic blood pressure 69 mm[Hg] Shantel Steven MD Work Phone: [facility] 03-12-2025 19:10-0400 Heart rate 57 /min Shantel Steven MD Work Phone: [facility] 03-12-2025 19:10-0400 Respiratory rate 18 /min Shantel Steven MD Work Phone: [facility] 03-12-2025 19:10-0400 SaO2% (BldA) [Mass fraction] 99 % Shantel Steven MD Work Phone: [facility] 03-12-2025 19:10-0400 Systolic blood pressure 164 mm[Hg] Shantel Steven MD Work Phone: [facility] 03-12-2025 13:45-0400 Body height 165.1 cm Shantel Steven MD Work Phone: [facility] 03-12-2025 13:45-0400 Body weight 114.7 kg Shantel Steven MD Work Phone: [facility] 03-12-2025 13:44-0400 Body temperature 97.6 [degF] Shantel Steven MD Work Phone: [facility] 03-10-2025 11:05-0400 Body height 165.1 cm [facility] 03-10-2025 11:05-0400 Body mass index (BMI) [Ratio] 41.1 kg/m2 [facility] 03-10-2025 11:05-0400 Body weight 112.1 kg [facility] 03-10-2025 11:05-0400 Diastolic blood pressure 70 mm[Hg] [facility] 03-10-2025 11:05-0400 Systolic blood pressure 145 mm[Hg] [facility] 02-19-2025 08:58-0400 Body height 165.1 cm [facility] 02-19-2025 08:58-0400 Body mass index (BMI) [Ratio] 41.1 kg/m2 [facility] 02-19-2025 08:58-0400 Body temperature 97.3 [degF] [facility] 02-19-2025 08:58-0400 Body weight 112.09 kg [facility] 02-19-2025 08:58-0400 Diastolic blood pressure 58 mm[Hg] [facility] 02-19-2025 08:58-0400 Heart rate 68 /min [facility] 02-19-2025 08:58-0400 Respiratory rate 18 /min [facility] 02-19-2025 08:58-0400 SaO2% (BldA) [Mass fraction] 96 % [facility] 02-19-2025 08:58-0400 Systolic blood pressure 147 mm[Hg] [facility] 02-09-2025 14:03-0400 Body height 165.1 cm [facility] 02-09-2025 14:03-0400 Body mass index (BMI) [Ratio] 42.5 kg/m2 [facility] 02-09-2025 14:03-0400 Body weight 116.11 kg [facility] 02-09-2025 14:03-0400 Diastolic blood pressure 78 mm[Hg] [facility] 02-09-2025 14:03-0400 Heart rate 79 /min [facility] 02-09-2025 14:03-0400 Respiratory rate 12 /min [facility] 02-09-2025 14:03-0400 Systolic blood pressure 185 mm[Hg] [facility] 01-14-2025 10:00-0500 Body height 165.1 cm Shantel Steven MD Work Phone: [facility] 01-14-2025 10:00-0500 Body mass index (BMI) [Ratio] 44.3 kg/m2 Shantel Steven MD Work Phone: [facility] 01-14-2025 10:00-0500 Body weight 120.88 kg Shantel Steven MD Work Phone: [facility] 01-14-2025 10:00-0500 Diastolic blood pressure 80 mm[Hg] Shantel Steven MD Work Phone: [facility] 01-14-2025 10:00-0500 Heart rate 66 /min Shantel Steven MD Work Phone: [facility] 01-14-2025 10:00-0500 SaO2% (BldA) [Mass fraction] 93 % Shantel Steven MD Work Phone: [facility] 01-14-2025 10:00-0500 Systolic blood pressure 176 mm[Hg] Shantel Steven MD Work Phone: [facility] 01-06-2025 15:22-0500 Body height 165.1 cm Shantel Steven MD Work Phone: [facility] 01-06-2025 15:22-0500 Body mass index (BMI) [Ratio] 44.7 kg/m2 Shantel Steven MD Work Phone: [facility] 01-06-2025 15:22-0500 Body weight 122.01 kg Shantel Steven MD Work Phone: [facility] 01-06-2025 15:22-0500 Diastolic blood pressure 83 mm[Hg] Shantel Steven MD Work Phone: [facility] 01-06-2025 15:22-0500 Heart rate 66 /min Shantel Steven MD Work Phone: [facility] 01-06-2025 15:22-0500 Systolic blood pressure 155 mm[Hg] Shantel Steven MD Work Phone: [facility] 12-26-2024 12:58-0500 Body height 165.1 cm Jorge Luis Zavala DO Work Phone: [facility] 12-26-2024 12:58-0500 Body mass index (BMI) [Ratio] 43.6 kg/m2 Jorge Luis Zavala DO Work Phone: [facility] 12-26-2024 12:58-0500 Body weight 118.84 kg Jorge Luis Tupa DO Work Phone: [facility] 12-26-2024 12:58-0500 Diastolic blood pressure 79 mm[Hg] Jorge Luis Tupa DO Work Phone: [facility] 12-26-2024 12:58-0500 Heart rate 92 /min Jorge Luis Tupa DO Work Phone: [facility] 12-26-2024 12:58-0500 SaO2% (BldA) [Mass fraction] 97 % Jorge Luis Tupa DO Work Phone: [facility] 12-26-2024 12:58-0500 Systolic blood pressure 175 mm[Hg] Jorge Luis Tupa DO Work Phone: [facility] 12-09-2024 13:33-0500 Body height 165.1 cm Jorge Luis Tupa DO Work Phone: [facility] 12-09-2024 13:33-0500 Body mass index (BMI) [Ratio] 43.4 kg/m2 Jorge Luis Tupa DO Work Phone: [facility] 12-09-2024 13:33-0500 Body weight 118.55 kg Jorge Luis Tupa DO Work Phone: [facility] 12-09-2024 13:33-0500 Diastolic blood pressure 83 mm[Hg] Jorge Luis Tupa DO Work Phone: [facility] 12-09-2024 13:33-0500 Heart rate 81 /min Jorge Luis Tupa DO Work Phone: [facility] 12-09-2024 13:33-0500 Respiratory rate 14 /min Jorge Luis Tupa DO Work Phone: [facility] 12-09-2024 13:33-0500 Systolic blood pressure 156 mm[Hg] Jorge Luis Tupa DO Work Phone: [facility] 11-11-2024 13:46-0500 Body height 165.1 cm Jorge Luis Tupa DO Work Phone: [facility] 11-11-2024 13:46-0500 Body mass index (BMI) [Ratio] 41.1 kg/m2 Jorge Luis Tupa DO Work Phone: [facility] 11-11-2024 13:46-0500 Body temperature 97.3 [degF] Jorge Luis Tupa DO Work Phone: [facility] 11-11-2024 13:46-0500 Body weight 112.03 kg Jorge Luis Tupa DO Work Phone: [facility] 11-11-2024 13:46-0500 Diastolic blood pressure 84 mm[Hg] Jorge Luis Tupa DO Work Phone: [facility] 11-11-2024 13:46-0500 Heart rate 95 /min Jorge Luis Tupa DO Work Phone: [facility] 11-11-2024 13:46-0500 Respiratory rate 16 /min Jorge Luis Tupa DO Work Phone: [facility] 11-11-2024 13:46-0500 SaO2% (BldA) [Mass fraction] 96 % Jorge Luis Tupa DO Work Phone: [facility] 11-11-2024 13:46-0500 Systolic blood pressure 145 mm[Hg] Jorge Luis Tupa DO Work Phone: [facility] 11-03-2024 11:43-0500 Body height 165.1 cm Jorge Luis Tupa DO Work Phone: [facility] 11-03-2024 11:43-0500 Body mass index (BMI) [Ratio] 41.1 kg/m2 Jorge Luis Tupa DO Work Phone: [facility] 11-03-2024 11:43-0500 Body weight 112.03 kg Jorge Luis Tupa DO Work Phone: [facility] 11-03-2024 11:43-0500 Diastolic blood pressure 70 mm[Hg] Jorge Luis Tupa DO Work Phone: [facility] 11-03-2024 11:43-0500 Heart rate 78 /min Jorge Luis Tupa DO Work Phone: [facility] 11-03-2024 11:43-0500 SaO2% (BldA) [Mass fraction] 97 % Jorge Luis Tupa DO Work Phone: [facility] 11-03-2024 11:43-0500 Systolic blood pressure 138 mm[Hg] Jorge Luis Tupa DO Work Phone: [facility] 10-25-2024 07:49-0500 Diastolic blood pressure 73 mm[Hg] Jorge Luis Tupa DO Work Phone: [facility] 10-25-2024 07:49-0500 Heart rate 85 /min Jorge Luis Tupa DO Work Phone: [facility] 10-25-2024 07:49-0500 Respiratory rate 18 /min Jorge Luis Tupa DO Work Phone: [facility] 10-25-2024 07:49-0500 SaO2% (BldA) [Mass fraction] 98 % Jorge Luis Tupa DO Work Phone: [facility] 10-25-2024 07:49-0500 Systolic blood pressure 135 mm[Hg] Jorge Luis Tupa DO Work Phone: [facility] 10-25-2024 05:58-0500 Body height 165.1 cm Jorge Luis Tupa DO Work Phone: [facility] 10-25-2024 05:58-0500 Body temperature 98 [degF] Jorge Luis Tupa DO Work Phone: [facility] 10-25-2024 05:58-0500 Body weight 122.92 kg Jorge Luis Tupa DO Work Phone: [facility] 10-22-2024 04:48-0500 Body height 165.1 cm Jorge Luis Tupa DO Work Phone: [facility] 10-22-2024 04:48-0500 Body temperature 98.5 [degF] Jorge Luis Tupa DO Work Phone: [facility] 10-22-2024 04:48-0500 Body weight 114.8 kg Jorge Luis Tupa DO Work Phone: [facility] 10-22-2024 04:48-0500 Diastolic blood pressure 68 mm[Hg] Jorge Luis Tupa DO Work Phone: [facility] 10-22-2024 04:48-0500 Heart rate 100 /min Jorge Luis Tupa DO Work Phone: [facility] 10-22-2024 04:48-0500 Respiratory rate 18 /min Jorge Luis Tupa DO Work Phone: [facility] 10-22-2024 04:48-0500 SaO2% (BldA) [Mass fraction] 97 % Jorge Luis Tupa DO Work Phone: [facility] 10-22-2024 04:48-0500 Systolic blood pressure 132 mm[Hg] Jorge Luis Tupa DO Work Phone: [facility] 10-20-2024 12:00-0500 Body temperature 97.4 [degF] Jorge Luis Tupa DO Work Phone: [facility] 10-20-2024 12:00-0500 Diastolic blood pressure 73 mm[Hg] Jorge Luis Tupa DO Work Phone: [facility] 10-20-2024 12:00-0500 Heart rate 98 /min Jorge Luis Tupa DO Work Phone: [facility] 10-20-2024 12:00-0500 Respiratory rate 20 /min Jorge Luis Tupa DO Work Phone: [facility] 10-20-2024 12:00-0500 SaO2% (BldA) [Mass fraction] 98 % Jorge Luis Tupa DO Work Phone: [facility] 10-20-2024 12:00-0500 Systolic blood pressure 116 mm[Hg] Jorge Luis Camargopa DO Work Phone: [facility] 10-20-2024 05:57-0500 Body weight 110.9 kg Jorge Luis Tupa DO Work Phone: [facility] 10-17-2024 14:18-0500 Body height 165.1 cm Jorge Luis Camargopa DO Work Phone: [facility] 10-01-2024 09:51-0500 Body height 165.1 cm Christel Chacon MD Work Phone: [facility] 10-01-2024 09:51-0500 Body mass index (BMI) [Ratio] 42.27 kg/m2 Christel Chacon MD Work Phone: [facility] 10-01-2024 09:51-0500 Body weight 115.21 kg Christel Chacon MD Work Phone: [facility] 10-01-2024 09:51-0500 Diastolic blood pressure 110 mm[Hg] Christel Chacon MD Work Phone: [facility] 10-01-2024 09:51-0500 Systolic blood pressure 138 mm[Hg] Christel Chacon MD Work Phone: [facility] 08-07-2024 10:04-0400 Body height 165.1 cm MD Shantel Steven Work Phone: [facility] 08-07-2024 10:04-0400 Body mass index (BMI) [Ratio] 43.1 kg/m2 MD Shantel Steven Work Phone: [facility] 08-07-2024 10:04-0400 Body weight 117.48 kg MD Shantel Steven Work Phone: [facility] 08-07-2024 10:04-0400 Diastolic blood pressure 69 mm[Hg] MD Shantel Steven Work Phone: [facility] 08-07-2024 10:04-0400 Heart rate 52 /min MD Shantel Steven Work Phone: [facility] 08-07-2024 10:04-0400 SaO2% (BldA) [Mass fraction] 93 % MD Shantel Steven Work Phone: [facility] 08-07-2024 10:04-0400 Systolic blood pressure 117 mm[Hg] MD Shantel Steven Work Phone: [facility] 07-22-2024 13:15-0400 Body height 165.1 cm Christel Chacon MD Work Phone: [facility] 07-22-2024 13:15-0400 Body mass index (BMI) [Ratio] 42.6 kg/m2 Christel Chacon MD Work Phone: [facility] 07-22-2024 13:15-0400 Body weight 116.12 kg Christel Chacon MD Work Phone: [facility] 07-22-2024 13:15-0400 Diastolic blood pressure 82 mm[Hg] Christel Chacon MD Work Phone: [facility] 07-22-2024 13:15-0400 Systolic blood pressure 130 mm[Hg] Christel Chacon MD Work Phone: [facility] 07-16-2024 10:20-0400 Body height 165.1 cm MD Shantel Steven Work Phone: [facility] 07-16-2024 10:20-0400 Body mass index (BMI) [Ratio] 43.1 kg/m2 MD Shantel Steven Work Phone: [facility] 07-16-2024 10:20-0400 Body weight 117.48 kg MD Shantel Steven Work Phone: [facility] 07-16-2024 10:20-0400 Diastolic blood pressure 80 mm[Hg] MD Shantel Steven Work Phone: [facility] 07-16-2024 10:20-0400 Heart rate 60 /min MD Shantel Steven Work Phone: [facility] 07-16-2024 10:20-0400 Systolic blood pressure 151 mm[Hg] MD Shantel Steven Work Phone: [facility] 07-10-2024 13:40-0400 Body height 165.1 cm Lizett Gillmor [employer] Work Phone: [facility] 07-10-2024 13:40-0400 Body mass index (BMI) [Ratio] 42.43 kg/m2 Lizett Gillmor [employer] Work Phone: [facility] 07-10-2024 13:40-0400 Body weight 115.67 kg Lizett Gillmor [employer] Work Phone: [facility] 07-10-2024 13:40-0400 Diastolic blood pressure 86 mm[Hg] Lizett Gillmor [employer] Work Phone: [facility] 07-10-2024 13:40-0400 Systolic blood pressure 132 mm[Hg] Lizett Gillmor [employer] Work Phone: [facility] 07-07-2024 11:41-0400 Body height 165.1 cm MD Shantel Steven Work Phone: [facility] 07-07-2024 11:41-0400 Body mass index (BMI) [Ratio] 42.4 kg/m2 MD Shantel Steven Work Phone: [facility] 07-07-2024 11:41-0400 Body weight 115.66 kg MD Shantel Steven Work Phone: [facility] 07-07-2024 11:41-0400 Diastolic blood pressure 79 mm[Hg] MD Shantel Steven Work Phone: [facility] 07-07-2024 11:41-0400 Heart rate 66 /min MD Shantel Steven Work Phone: [facility] 07-07-2024 11:41-0400 Systolic blood pressure 132 mm[Hg] MD Shantel Steven Work Phone: [facility] 06-16-2024 13:08-0400 Body height 165.1 cm MD Shantel Steven Work Phone: [facility] 06-16-2024 13:08-0400 Body mass index (BMI) [Ratio] 41.9 kg/m2 MD Shantel Steven Work Phone: [facility] 06-16-2024 13:08-0400 Body weight 114.3 kg MD Shantel Steven Work Phone: [facility] 06-16-2024 13:08-0400 Diastolic blood pressure 73 mm[Hg] MD Shantel Steven Work Phone: [facility] 06-16-2024 13:08-0400 Heart rate 55 /min MD Shantel Steven Work Phone: [facility] 06-16-2024 13:08-0400 Systolic blood pressure 137 mm[Hg] MD Shantel Steven Work Phone: [facility] 06-05-2024 11:51-0400 Body height 165.1 cm MD Shantel Steven Work Phone: [facility] 06-05-2024 11:51-0400 Body mass index (BMI) [Ratio] 43.2 kg/m2 MD Shantel Steven Work Phone: [facility] 06-05-2024 11:51-0400 Body temperature 96.6 [degF] MD Shantel Steven Work Phone: [facility] 06-05-2024 11:51-0400 Body weight 117.7 kg MD Shantel Steven Work Phone: [facility] 06-05-2024 11:51-0400 Diastolic blood pressure 74 mm[Hg] MD Shantel Steven Work Phone: [facility] 06-05-2024 11:51-0400 Heart rate 63 /min MD Shantel Steven Work Phone: [facility] 06-05-2024 11:51-0400 Respiratory rate 18 /min MD Shantel Steven Work Phone: [facility] 06-05-2024 11:51-0400 SaO2% (BldA) [Mass fraction] 97 % MD Shantel Steven Work Phone: [facility] 06-05-2024 11:51-0400 Systolic blood pressure 138 mm[Hg] MD Shantel Steven Work Phone: [facility] 05-22-2024 09:18-0400 Heart rate 55 /min MD Shantel Steven Work Phone: [facility] 05-22-2024 09:09-0400 Body temperature 97.8 [degF] MD Shantel Steven Work Phone: [facility] 05-22-2024 09:09-0400 Diastolic blood pressure 64 mm[Hg] MD Shantel Steven Work Phone: [facility] 05-22-2024 09:09-0400 Respiratory rate 22 /min MD Shantel Steven Work Phone: [facility] 05-22-2024 09:09-0400 SaO2% (BldA) [Mass fraction] 94 % MD Shantel Steven Work Phone: [facility] 05-22-2024 09:09-0400 Systolic blood pressure 140 mm[Hg] MD Shantel Steven Work Phone: [facility] 05-22-2024 09:08-0400 Body height 165.1 cm MD Shantel Steven Work Phone: [facility] 05-22-2024 09:08-0400 Body weight 117.48 kg MD Shantel Steven Work Phone: [facility] 05-19-2024 14:16-0400 Body height 165.1 cm MD Shantel Steven Work Phone: [facility] 05-19-2024 14:16-0400 Body mass index (BMI) [Ratio] 43.1 kg/m2 MD Shantel Steven Work Phone: [facility] 05-19-2024 14:16-0400 Body weight 117.48 kg MD Shantel Steven Work Phone: [facility] 05-19-2024 14:16-0400 Diastolic blood pressure 72 mm[Hg] MD Shantel Steven Work Phone: [facility] 05-19-2024 14:16-0400 Heart rate 56 /min MD Shantel Steven Work Phone: [facility] 05-19-2024 14:16-0400 Systolic blood pressure 133 mm[Hg] MD Shantel Steven Work Phone: [facility] 05-07-2024 11:52-0400 Body height 165.1 cm MD Shantel Steven Work Phone: [facility] 05-07-2024 11:52-0400 Body mass index (BMI) [Ratio] 41.5 kg/m2 MD Shantel Steven Work Phone: [facility] 05-07-2024 11:52-0400 Body temperature 98.5 [degF] MD Shantel Steven Work Phone: [facility] 05-07-2024 11:52-0400 Body weight 113.39 kg MD Shantel Steven Work Phone: [facility] 05-07-2024 11:52-0400 Diastolic blood pressure 81 mm[Hg] MD Shantel Steven Work Phone: [facility] 05-07-2024 11:52-0400 Heart rate 91 /min MD Shantel Steven Work Phone: [facility] 05-07-2024 11:52-0400 Systolic blood pressure 141 mm[Hg] MD Shantel Steven Work Phone: [facility] 04-29-2024 12:54-0400 Body height 165.1 cm MD Shantel Steven Work Phone: [facility] 04-29-2024 12:54-0400 Body mass index (BMI) [Ratio] 41.5 kg/m2 MD Shantel Steven Work Phone: [facility] 04-29-2024 12:54-0400 Body weight 113.39 kg MD Shantel Steven Work Phone: [facility] 04-29-2024 12:54-0400 Diastolic blood pressure 58 mm[Hg] MD Shantel Steven Work Phone: [facility] 04-29-2024 12:54-0400 Heart rate 54 /min MD Shantle Steven Work Phone: [facility] 04-29-2024 12:54-0400 Systolic blood pressure 90 mm[Hg] MD Shantel Steven Work Phone: [facility] 04-03-2024 11:29-0400 Body height 165.1 cm MD Shantel Steven Work Phone: [facility] 04-03-2024 11:29-0400 Body mass index (BMI) [Ratio] 43.7 kg/m2 MD Shantel Steven Work Phone: [facility] 04-03-2024 11:29-0400 Body weight 119.29 kg MD Shantel Steven Work Phone: [facility] 04-03-2024 11:29-0400 Diastolic blood pressure 71 mm[Hg] MD Shantel Steven Work Phone: [facility] 04-03-2024 11:29-0400 Heart rate 56 /min MD Shantel Steven Work Phone: [facility] 04-03-2024 11:29-0400 Systolic blood pressure 116 mm[Hg] MD Shantel Steven Work Phone: [facility] 03-25-2024 15:15-0400 Body height 165.1 cm MD Shantel Steven Work Phone: [facility] 03-25-2024 15:15-0400 Body mass index (BMI) [Ratio] 43.9 kg/m2 MD Shantel Steven Work Phone: [facility] 03-25-2024 15:15-0400 Body weight 119.74 kg MD Shantel Steven Work Phone: [facility] 03-25-2024 15:15-0400 Diastolic blood pressure 87 mm[Hg] MD Shantel Steven Work Phone: [facility] 03-25-2024 15:15-0400 Heart rate 66 /min MD Shantel Steven Work Phone: [facility] 03-25-2024 15:15-0400 Systolic blood pressure 125 mm[Hg] MD Shantel Steven Work Phone: [facility] 02-15-2024 14:18-0400 Body height 165.1 cm [facility] 02-15-2024 14:18-0400 Body mass index (BMI) [Ratio] 38.6 kg/m2 [facility] 02-15-2024 14:18-0400 Body weight 105.23 kg [facility] 02-15-2024 14:18-0400 Diastolic blood pressure 66 mm[Hg] [facility] 02-15-2024 14:18-0400 Heart rate 55 /min [facility] 02-15-2024 14:18-0400 Systolic blood pressure 114 mm[Hg] [facility] 01-18-2024 10:23-0500 Body height 165.1 cm [facility] 01-18-2024 10:23-0500 Body mass index (BMI) [Ratio] 43.2 kg/m2 [facility] 01-18-2024 10:23-0500 Body weight 117.93 kg [facility] 01-18-2024 10:23-0500 Diastolic blood pressure 70 mm[Hg] [facility] 01-18-2024 10:23-0500 Heart rate 98 /min [facility] 01-18-2024 10:23-0500 SaO2% (BldA) [Mass fraction] 65 % [facility] 01-18-2024 10:23-0500 Systolic blood pressure 110 mm[Hg] [facility] 10-23-2023 16:00-0500 Body height 165.1 cm Jaleesa Kochs Other [employer] Other 10-23-2023 16:00-0500 Body mass index (BMI) [Ratio] 44.63 kg/m2 Jaleesa Kochs Other [employer] Other 10-23-2023 16:00-0500 Body temperature 96.8 [degF] Jaleesa Kochs Other [employer] Other 10-23-2023 16:00-0500 Body weight 121.66 kg Jaleesa Kochs Other [employer] Other 10-23-2023 16:00-0500 Diastolic blood pressure 60 mm[Hg] Jaleesa Kochs Other [employer] Other 10-23-2023 16:00-0500 Respiratory rate 18 /min Jaleesa Kochs Other [employer] Other 10-23-2023 16:00-0500 SaO2% (BldA) [Mass fraction] 99 % Jaleesa Kochs Other [employer] Other 10-23-2023 16:00-0500 Systolic blood pressure 124 mm[Hg] Azghassan Kochs Other [employer] Other 10-18-2023 13:45-0500 Body height 165.1 cm Shantel Steven Other [employer] Other 10-18-2023 13:45-0500 Body mass index (BMI) [Ratio] 44.86 kg/m2 Shantel Steven Other [employer] Other 10-18-2023 13:45-0500 Body temperature 97.3 [degF] Shantel Steven Other [employer] Other 10-18-2023 13:45-0500 Body weight 122.29 kg Shantel Steven Other [employer] Other 10-18-2023 13:45-0500 Diastolic blood pressure 84 mm[Hg] Shantel Steven Other [employer] Other 10-18-2023 13:45-0500 SaO2% (BldA) [Mass fraction] 97 % Shantel Steven Other [employer] Other 10-18-2023 13:45-0500 Systolic blood pressure 132 mm[Hg] Shantel Steven Other [employer] Other 09-04-2023 14:00-0400 Body height 165.1 cm Shantel Steven Other [employer] Other 09-04-2023 14:00-0400 Body mass index (BMI) [Ratio] 43.06 kg/m2 Shantel Steven Other [employer] Other 09-04-2023 14:00-0400 Body weight 117.39 kg Shantel Steven Other [employer] Other 09-04-2023 14:00-0400 Diastolic blood pressure 69 mm[Hg] Shantel Steven Other [employer] Other 09-04-2023 14:00-0400 Systolic blood pressure 127 mm[Hg] Shantel Steven Other [employer] Other 07-17-2023 10:00-0400 Body height 165.1 cm Shantel Steven Other [employer] Other 07-17-2023 10:00-0400 Body mass index (BMI) [Ratio] 43.03 kg/m2 Shantel Steven Other [employer] Other 07-17-2023 10:00-0400 Body weight 117.3 kg Shantel Steven Other [employer] Other 07-17-2023 10:00-0400 Diastolic blood pressure 76 mm[Hg] Shantel Steven Other [employer] Other 07-17-2023 10:00-0400 Systolic blood pressure 164 mm[Hg] Shantel Steven Other [employer] Other 04-30-2023 14:30-0400 Body height 165.1 cm Shantel Steven Other [employer] Other 04-30-2023 14:30-0400 Body mass index (BMI) [Ratio] 43.43 kg/m2 Shantel Steven Other [employer] Other 04-30-2023 14:30-0400 Body weight 118.39 kg Shantel Steven Other [employer] Other 04-30-2023 14:30-0400 Diastolic blood pressure 75 mm[Hg] Shantel Steven Other [employer] Other 04-30-2023 14:30-0400 Systolic blood pressure 135 mm[Hg] Shantel Steven Other [employer] Other 03-09-2023 12:15-0400 Body height 165.1 cm Shantel Steven Other [employer] Other 03-09-2023 12:15-0400 Body mass index (BMI) [Ratio] 43.59 kg/m2 Shantel Steven Other [employer] Other 03-09-2023 12:15-0400 Body weight 118.84 kg Shantel Steven Other [employer] Other 03-09-2023 12:15-0400 Diastolic blood pressure 82 mm[Hg] Shantel Steven Other [employer] Other 03-09-2023 12:15-0400 SaO2% (BldA) [Mass fraction] 97 % Shantel Steven Other [employer] Other 03-09-2023 12:15-0400 Systolic blood pressure 130 mm[Hg] Shantel Steven Other [employer] Other 02-20-2023 10:00-0400 Body height 165.1 cm Shantel Steven Other [employer] Other 02-20-2023 10:00-0400 Body mass index (BMI) [Ratio] 41.93 kg/m2 Shantel Steven Other [employer] Other 02-20-2023 10:00-0400 Body weight 114.31 kg Shantel Steven Other [employer] Other 02-20-2023 10:00-0400 Diastolic blood pressure 84 mm[Hg] Shantel Steven Other [employer] Other 02-20-2023 10:00-0400 Systolic blood pressure 132 mm[Hg] Shantel Steven Other [employer] Other 08-04-2022 13:33-0400 Blood Pressure Location Bni NILL [facility] [place] 08-04-2022 13:33-0400 Diastolic blood pressure 88 mm[Hg] Bin N[facility] [place] 08-04-2022 13:33-0400 Heart rate 76 /min Bin N[facility] [place] 08-04-2022 13:33-0400 Respiratory rate 16 /min Bin N[facility] [place] 08-04-2022 13:33-0400 Systolic blood pressure 130 mm[Hg] Bin NILL [facility] [place] 08-25-2021 14:30-0400 Body height 165.1 cm [employer] Other [employer] Other 08-25-2021 14:30-0400 Body mass index (BMI) [Ratio] 43.26 kg/m2 [employer]bar [employer] Other [employer] Other 08-25-2021 14:30-0400 Body weight 117.94 kg Akbar [employer] Other [employer] Other Encounters Encounter Date Encounter Type Care Provider Facility Start: 08-17-2025 End: 08-17-2025 ambulatory Shantel Steven MD Work Phone: [facility] Work Phone: Start: 08-17-2025 End: 08-17-2025 Lizett Ross [facility] Work Phone: Start: 08-05-2025 End: 08-05-2025 ambulatory Shantel Steven MD Work Phone: [facility] Work Phone: Start: 08-05-2025 End: 08-05-2025 Shantel Steven MD -[facility] Work Phone: Start: 08-03-2025 Wandy Alvarez CMA -[facility] Work Phone: Start: 07-29-2025 End: 08-01-2025 Evaluation and management of inpatient Shantel Steven MD Work Phone: [facility] Work Phone: Start: 07-29-2025 End: 08-01-2025 Chasity Castro MD -[facility] Work Phone: Start: 07-24-2025 Wandy Alvarez CMA -[facility] Work Phone: Start: 07-23-2025 Monica Stewart MD -[facility] Work Phone: Start: 07-22-2025 Shantel Steven MD -[facility] Work Phone: Start: 07-20-2025 End: 07-20-2025 ambulatory Shantel Steven MD Work Phone: [facility] Work Phone: Start: 07-20-2025 End: 07-20-2025 Shantel Steven MD -[facility] Work Phone: Start: 07-01-2025 Wandy Alvarez CMA -[facility] Work Phone: Start: 07-01-2025 Wandy Alvarez CMA -[facility] Work Phone: Start: 06-30-2025 Monica Stewart MD -[facility] Work Phone: Start: 06-29-2025 Monica Stewart MD -[facility] Work Phone: Start: 06-28-2025 Jarred Cardona DO -[facility] Work Phone: Start: 06-22-2025 Wandy MARLOW [facility] Work Phone: Start: 06-19-2025 Outside Provider -[facility] Work Phone: Start: 06-15-2025 End: 06-15-2025 ambulatory Shantel Steven MD Work Phone: [facility] Work Phone: Start: 06-15-2025 End: 06-15-2025 Shantel Steven MD -[facility] Work Phone: Start: 06-10-2025 Wandy Wells [facility] Work Phone: Start: 06-10-2025 Osbaldo Marlow MD -[facility] Work Phone: Start: 06-09-2025 Osbaldo Marlow MD -[facility] Work Phone: Start: 06-08-2025 Jarred Cardona -[facility] Work Phone: Start: 06-04-2025 End: 06-04-2025 ambulatory Shantel Steven MD Work Phone: [facility] Work Phone: Start: 06-04-2025 End: 06-04-2025 Shantel Steven MD -[facility] Work Phone: Start: 06-02-2025 End: 06-02-2025 ambulatory Shantel Steven MD Work Phone: [facility] Work Phone: Start: 06-02-2025 End: 06-02-2025 Shantel Steven MD -[facility] Work Phone: Start: 05-31-2025 Monica Stewart MD -[facility] Work Phone: Start: 05-30-2025 Monica Stewart MD -[facility] Work Phone: Start: 05-29-2025 Monica Stewart MD -[facility] Work Phone: Start: 05-28-2025 Analisa Bryant MD [facility] Work Phone: Start: 05-21-2025 End: 05-21-2025 ambulatory Shantel Steven MD Work Phone: [facility] Work Phone: Start: 05-21-2025 End: 05-21-2025 Patient encounter procedure Shantel Steven MD -[facility] Work Phone: Start: 05-21-2025 End: 05-21-2025 Shantel Steven MD -[facility] Work Phone: Start: 05-13-2025 Non-patient / Non-visit Wandy Bowen [facility] -[facility] Work Phone: Start: 05-13-2025 Wandy Alvarez [facility] -[facility] Work Phone: Start: 05-11-2025 Non-patient / Non-visit Cheng Ross [facility] Work Phone: Start: 05-11-2025 Cheng Ross [facility] Work Phone: Start: 04-22-2025 End: 04-22-2025 ambulatory [facility] Start: 04-21-2025 End: 04-21-2025 ambulatory Shantel Steven MD Work Phone: [facility] Work Phone: Start: 04-21-2025 End: 04-21-2025 Patient encounter procedure Cheng Ross [facility] Work Phone: Start: 04-21-2025 End: 04-21-2025 Shantel Steven MD Work Phone: [facility] Work Phone: Start: 04-16-2025 End: 04-16-2025 ambulatory Shantel Steven MD Work Phone: [facility] Work Phone: Start: 04-16-2025 End: 04-16-2025 Patient encounter procedure Shantel Steven MD -[facility] Work Phone: Start: 04-16-2025 End: 04-16-2025 Shantel Steven MD Work Phone: [facility] Work Phone: Start: 03-24-2025 End: 03-24-2025 ambulatory Shantel Steven MD Work Phone: [facility] Work Phone: Start: 03-24-2025 End: 03-24-2025 Patient encounter procedure Shantel Steven MD -[facility] Work Phone: Start: 03-24-2025 End: 03-24-2025 Shantel Steven MD Work Phone: [facility] Work Phone: Start: 03-13-2025 Non-patient / Non-visit Wandy Bowen CMA -[facility] Work Phone: Start: 03-13-2025 Shantel Cardona Work Phone: [facility] Work Phone: Start: 03-12-2025 End: 03-12-2025 Shantel Steven MD Work Phone: [facility]-Emergency Room Work Phone: Start: 03-12-2025 End: 03-12-2025 Emergency department patient visit Shantel Steven MD Work Phone: [facility] Work Phone: Start: 03-10-2025 End: 03-10-2025 ambulatory [facility] Work Phone: Start: 03-10-2025 End: 03-10-2025 Patient encounter procedure [facility] Work Phone: Start: 03-10-2025 End: 03-10-2025 Shantel Steven MD Work Phone: [facility] Work Phone: Start: 03-02-2025 End: 03-02-2025 ambulatory [facility] Start: 03-02-2025 Non-patient / [facility]: Start: 03-02-2025 Shantel Cardona Work Phone: [facility] Work Phone: Start: 02-19-2025 End: 02-19-2025 ambulatory [facility] Work Phone: Start: 02-19-2025 End: 02-19-2025 Patient encounter procedure [facility] Work Phone: Start: 02-19-2025 End: 02-19-2025 Shantel Steven MD Work Phone: [facility] Work Phone: Start: 02-09-2025 End: 02-09-2025 ambulatory [facility] Work Phone: Start: 02-09-2025 End: 02-09-2025 Patient encounter procedure [facility] Work Phone: Start: 02-09-2025 End: 02-09-2025 Shantel Steven MD Work Phone: [facility] Work Phone: Start: 01-28-2025 End: 01-28-2025 ambulatory [facility] Start: 01-28-2025 Non-patient / Non-visit [facility] Work Phone: Start: 01-28-2025 Shantel Cardona Work Phone: [facility] Work Phone: Start: 01-27-2025 Non-patient / Non-visit [facility] Work Phone: Start: 01-27-2025 Shantel Cardona Work Phone: [facility] Work Phone: Start: 01-26-2025 Non-patient / Non-visit [facility] Work Phone: Start: 01-26-2025 Shantel Cardona Work Phone: [facility] Work Phone: Start: 01-25-2025 Non-patient / Non-visit [facility] Work Phone: Start: 01-25-2025 Shantel Cardona Work Phone: [facility] Work Phone: Start: 01-21-2025 End: 01-21-2025 ambulatory Shantel Steven MD Work Phone: [facility] Work Phone: Start: 01-21-2025 End: 01-21-2025 Patient encounter procedure Shantel Steven MD Work Phone: [facility] Work Phone: Start: 01-21-2025 End: 01-21-2025 Shantel Steven MD Work Phone: [facility] Work Phone: Start: 01-14-2025 End: 01-14-2025 ambulatory Shantel Steevn MD Work Phone: [facility] Work Phone: Start: 01-14-2025 End: 01-14-2025 Patient encounter procedure Shantel Steven MD Work Phone: [facility] Work Phone: Start: 01-14-2025 End: 01-14-2025 Shantel Steven MD Work Phone: [facility] Work Phone: Start: 01-07-2025 End: 01-07-2025 Telephone encounter Christel Chacon MD Work Phone: [facility] Comment on above: referral to Dr Estrada baer Start: 01-06-2025 End: 01-06-2025 Patient encounter procedure Shantel Steven MD Work Phone: [facility] Work Phone: Start: 01-06-2025 End: 01-06-2025 Shantel Steven MD Work Phone: [facility] Work Phone: Start: 01-06-2025 End: 01-06-2025 Telephone encounter Christel Chacon MD Work Phone: [facility] Comment on above: sleep study appt Start: 12-26-2024 End: 12-26-2024 ambulatory Jorge Luis Zavala DO Work Phone: [facility] Work Phone: Start: 12-26-2024 End: 12-26-2024 Patient encounter procedure Jorge Luis Zavala DO Work Phone: [facility] Work Phone: Start: 12-26-2024 End: 12-26-2024 Shantel Steven MD Work Phone: [facility] Work Phone: Start: 12-18-2024 End: 12-18-2024 ambulatory FRANCHESCA E STU Facility:[facility] Start: 12-18-2024 End: 12-18-2024 Patient encounter procedure FRANCHESCA Jenny PERAZA [facility] Start: 12-09-2024 End: 12-09-2024 Patient encounter procedure Jorge Luis Camargopa DO Work Phone: [facility] Work Phone: Start: 12-08-2024 Non-patient / Non-visit Oni miranda Tupa DO Work Phone: [facility] Work Phone: Start: 12-08-2024 End: 12-08-2024 ambulatory FRANCHESCA Alvarado STU Facility:[facility] Start: 12-08-2024 End: 12-08-2024 Patient encounter procedure FRANCHESCAJAMES PERAZA [facility] Start: 12-04-2024 Non-patient / Non-visit Onipamela Camargopa DO Work Phone: [facility] Work Phone: Start: 12-04-2024 Non-patient / Non-visit Oni miranda Tupa DO Work Phone: [facility] Work Phone: Start: 12-02-2024 End: 12-02-2024 ambulatory [facility] Start: 11-13-2024 End: 11-13-2024 ambulatory FRANCHESCA E STU Facility:[facility] [place] Start: 11-13-2024 End: 11-13-2024 Patient encounter procedure FRANCHESCA CUELLARRY [facility] Start: 11-11-2024 End: 11-11-2024 Patient encounter procedure Jorge Luis Tupa DO Work Phone: [facility] Work Phone: Start: 11-10-2024 Non-patient / Non-visit Oni k Tupa DO Work Phone: [facility] Work Phone: Start: 11-06-2024 ambulatory FRANCHESCA PERAZA Facili ty:[facility] Start: 11-04-2024 End: 11-04-2024 ambulatory FRANCHESCA E STU Facility: [facility] Start: 11-04-2024 End: 11-04-2024 Patient encounter procedure FRANCHESCA CUELLARRY [facility] Start: 11-03-2024 End: 11-03-2024 Patient encounter procedure Jorge Luis Tupa DO Work Phone: [facility] Work Phone: Start: 10-31-2024 ambulatory [facility] Start: 10-25-2024 End: 10-25-2024 Emergency department patient visit Jorge Luis Tupa DO Work Phone: [facility]-Emergency Room Work Phone: Start: 10-24-2024 Non-patient / Non-visit Oni k Tupa DO Work Phone: [facility] Work Phone: Start: 10-22-2024 End: 10-22-2024 Emergency department patient visit Jorge Luis Tupa DO Work Phone: [facility]-Emergency Room Work Phone: Start: 10-21-2024 Non-patient / Non-visit Oni k Tupa DO Work Phone: [facility] Work Phone: Start: 10-17-2024 Non-patient / Non-visit Oni Zavala DO Work Phone: [facility] Work Phone: Start: 10-17-2024 Non-patient / Non-visit Oni Zavala DO Work Phone: [facility] Work Phone: Start: 10-16-2024 Non-patient / Non-visit Oni Zavala DO Work Phone: [facility] Work Phone: Start: 10-16-2024 End: 10-20-2024 Evaluation and management of inpatient Jorge Luis Zavala DO Work Phone: [facility] [place] [facility] Work Phone: Start: 10-08-2024 End: 10-08-2024 ambulatory [facility] Start: 10-01-2024 End: 10-01-2024 Bamdaniel flowsheet [...] / Non-visit Oni Zavala DO Work Phone: [facility] Work Phone: Start: 09-26-2024 End: 09-30-2024 Telephone encounter Christel Chacon MD Work Phone: [facility] Start: 09-03-2024 ambulatory [facility] Start: 08-20-2024 End: 08-20-2024 ambulatory [facility] Start: 08-07-2024 End: 08-07-2024 ambulatory MD Shantel Steven Work Phone: [facility] Work Phone: Start: 08-07-2024 End: 08-07-2024 Patient encounter procedure MD Shantel Steven Work Phone: [facility] Work Phone: Start: 07-30-2024 Non-patient / Non-visit MD Alessia Steven Work Phone: [facility] Work Phone: Start: 07-25-2024 Non-patient / Non-visit MD Alessia Steven Work Phone: [facility] Work Phone: Start: 07-24-2024 Non-patient / Non-visit MD Alessia Steven Work Phone: [facility] Work Phone: Start: 07-22-2024 End: 07-22-2024 Bamboo flowsheet Christel Chacon MD Work Phone: [facility] Start: 07-22-2024 End: 07-22-2024 Bamboo flowsheet Christel Chacon MD Work Phone: [facility] Start: 07-22-2024 End: 07-22-2024 Office outpatient new 45 minutes Christel Chacon MD Work Phone: [facility] Comment on above: JDE (obstructive sle ep apnea) (Primary Dx); LPRD (laryngopharyngeal reflux disease); Throat tightness Start: 07-22-2024 End: 07-22-2024 ambulatory CHRISTEL CHACON Not Available Start: 07-17-2024 End: 07-17-2024 Patient encounter procedure MD Shantel Steven Work Phone: [facility] Work Phone: Start: 07-17-2024 End: 07-17-2024 ambulatory MD Shantel Steven Work Phone: [facility] Work Phone: Start: 07-17-2024 End: 07-17-2024 Departed Referred MD Shantel Steven Work Phone: [facility] [place] Work Phone: Start: 07-17-2024 End: 07-17-2024 MD Shantel Steven Work Phone: [facility] Work Phone: Start: 07-16-2024 End: 07-16-2024 ambulatory MD Shantel Steven Work Phone: [facility] Work Phone: Start: 07-16-2024 End: 07-16-2024 Patient encounter procedure MD Shantel Steven Work Phone: [facility] Work Phone: Start: 07-16-2024 End: 07-16-2024 MD Shantel Steven Work Phone: [facility] Work Phone: Start: 07-15-2024 End: 07-15-2024 Non-patient / Non-visit MD Shantel Steven Work Phone: [facility] Work Phone: Start: 07-15-2024 Non-patient / Non-visit MD Alessia Steven Work Phone: [facility] Work Phone: Start: 07-15-2024 MD Shantel painting Work Phone: [facility] Work Phone: Start: 07-14-2024 Non-patient / Non-visit MD Alessia Steven Work Phone: [facility] Work Phone: Start: 07-14-2024 MD Shantel painting Work Phone: [facility] Work Phone: Start: 07-10-2024 End: 07-10-2024 Bamboo flowsheet Lizett Mariemor [employer] Work Phone: [employer] Start: 07-10-2024 End: 07-10-2024 Bamboo flowsheet Lizett Mariemor [employer] Work Phone: [employer] Start: 07-10-2024 End: 07-10-2024 Office outpatient visit 25 minutes Lizett Sanar [employer] Work Phone: [employer] Comment on above: Essential tremor (Pr imary Dx); Diabetic polyneuropathy associated with type 2 diabetes mellitus ([facility]/HCC); Balance disorder; Sensory ataxia; Debility; Weakness; Paresthesias Start: 07-10-2024 End: 07-10-2024 ambulatory LIZETT MARIEMOR Not Available Start: 07-07-2024 End: 07-07-2024 ambulatory MD Shantel Steven Work Phone: [facility] Work Phone: Start: 07-07-2024 End: 07-07-2024 Patient encounter procedure MD Shantel Steven Work Phone: [facility] Work Phone: Start: 07-07-2024 End: 07-07-2024 MD Shantel Steven Work Phone: [facility] Work Phone: Start: 06-25-2024 ambulatory MD Shantel gray Work Phone: [facility] Work Phone: Start: 06-25-2024 Non-patient / Non-visit MD Alessia Steven Work Phone: [facility] Work Phone: Start: 06-25-2024 MD Shantel painting Work Phone: [facility] Work Phone: Start: 06-24-2024 Non-patient / Non-visit MD Alessia Steven Work Phone: [facility] Work Phone: Start: 06-24-2024 MD Shantel painting Work Phone: [facility] Work Phone: Start: 06-16-2024 End: 06-16-2024 ambulatory MD Shantel Steven Work Phone: [facility] Work Phone: Start: 06-16-2024 End: 06-16-2024 Patient encounter procedure MD Shantel Steven Work Phone: [facility] Work Phone: Start: 06-16-2024 End: 06-16-2024 MD Shantel Steven Work Phone: [facility] Work Phone: Start: 06-10-2024 Non-patient / Non-visit MD Alessia Steven Work Phone: [facility] Work Phone: Start: 06-10-2024 MD Shantel painting Work Phone: [facility] Work Phone: Start: 06-09-2024 Non-patient / Non-visit MD Alessia Steven Work Phone: [facility] Work Phone: Start: 06-09-2024 MD Shantel painting Work Phone: [facility] Work Phone: Start: 06-05-2024 End: 06-05-2024 ambulatory MD Shantel Steven Work Phone: [facility] Work Phone: Start: 06-05-2024 End: 06-05-2024 Patient encounter procedure MD Shantle Steven Work Phone: [facility] Work Phone: Start: 06-05-2024 End: 06-05-2024 MD Shantel Steven Work Phone: [facility] Work Phone: Start: 06-01-2024 Non-patient / Non-visit MD Alessia Steven Work Phone: [facility] Work Phone: Start: 06-01-2024 MD Shantel painting Work Phone: [facility] Work Phone: Start: 05-26-2024 Non-patient / Non-visit MD Alessia Steven Work Phone: [facility] Work Phone: Start: 05-26-2024 MD Shantel painting Work Phone: [facility] Work Phone: Start: 05-22-2024 End: 05-22-2024 Emergency department patient visit MD Shantel Steven Work Phone: [facility]-Emergency Room Work Phone: Start: 05-22-2024 End: 05-22-2024 MD Shantel Steven Work Phone: [facility]Emer[facility] Work Phone: Start: 05-20-2024 Non-patient / Non-visit MD Alessia Steven Work Phone: [facility] Work Phone: Start: 05-20-2024 MD Shantel painting Work Phone: [facility] Work Phone: Start: 05-19-2024 End: 05-19-2024 ambulatory MD Shantel Steven Work Phone: [facility] Work Phone: Start: 05-19-2024 End: 05-19-2024 Patient encounter procedure MD Shantel Steven Work Phone: [facility] Work Phone: Start: 05-19-2024 End: 05-19-2024 MD Shantel Steven Work Phone: [facility] [facility] Work Phone: Start: 05-07-2024 End: 05-07-2024 ambulatory MD Shantel Steven Work Phone: [facility] Work Phone: Start: 05-07-2024 End: 05-07-2024 Patient encounter procedure MD Shantel Steven Work Phone: [facility] Work Phone: Start: 05-07-2024 End: 05-07-2024 MD Shantel Steven Work Phone: [facility] Work Phone: Start: 05-06-2024 Non-patient / Non-visit MD Alessia Steven Work Phone: [facility] Work Phone: Start: 05-06-2024 MD Shantel painting Work Phone: [facility] Work Phone: Start: 05-05-2024 Non-patient / Non-visit MD Alessia Steven Work Phone: [facility] Work Phone: Start: 05-05-2024 MD Shantel painting Work Phone: [facility] Work Phone: Start: 05-04-2024 End: 05-06-2024 Non-patient / Non-visit MD Shantel Steven Work Phone: [facility] Work Phone: Start: 05-04-2024 End: 05-06-2024 MD Shantel Steven Work Phone: [facility] Work Phone: Start: 05-04-2024 Non-patient / Non-visit MD Alessia Steven Work Phone: [facility] Work Phone: Start: 05-04-2024 MD Shantel painting Work Phone: [facility] Work Phone: Start: 05-02-2024 Non-patient / Non-visit MD Alessia Steven Work Phone: [facility] Work Phone: Start: 05-02-2024 MD Shantel painting Work Phone: [facility] Work Phone: Start: 05-01-2024 Non-patient / Non-visit MD Alessia Steven Work Phone: [facility] Work Phone: Start: 05-01-2024 MD Shantel painting Work Phone: [facility] Work Phone: Start: 04-30-2024 Non-patient / Non-visit MD Alessia Steven Work Phone: [facility] Work Phone: Start: 04-30-2024 MD Shantel painting Work Phone: [facility] Work Phone: Start: 04-30-2024 Non-patient / Non-visit MD Alessia Steven Work Phone: [facility] Work Phone: Start: 04-30-2024 MD Shantel painting Work Phone: [facility] Work Phone: Start: 04-29-2024 End: 04-29-2024 Patient encounter procedure MD Shantel Steven Work Phone: [facility] Work Phone: Start: 04-29-2024 End: 04-29-2024 MD Shantel Steven Work Phone: [facility] Work Phone: Start: 04-03-2024 End: 04-03-2024 ambulatory MD Shantel Steven Work Phone: [facility] Work Phone: Start: 04-03-2024 End: 04-03-2024 Patient encounter procedure MD Shantel Steven Work Phone: [facility] Work Phone: Start: 04-03-2024 End: 04-03-2024 MD Shantel Steven Work Phone: [facility] Work Phone: Start: 04-01-2024 Non-patient / Non-visit MD Alessia Steven Work Phone: [facility] Work Phone: Start: 04-01-2024 MD Shantel painting Work Phone: [facility] Work Phone: Start: 03-31-2024 Non-patient / Non-visit MD Alessia Steven Work Phone: [facility] Work Phone: Start: 03-31-2024 MD Shantel painting Work Phone: [facility] Work Phone: Start: 03-28-2024 Non-patient / Non-visit MD Alessia Steven Work Phone: [facility] Work Phone: Start: 03-28-2024 MD Shantel painting Work Phone: [facility] Work Phone: Start: 03-27-2024 Non-patient / Non-visit MD Alessia Steven Work Phone: [facility] Work Phone: Start: 03-27-2024 MD Shantel painting Work Phone: [facility] Work Phone: Start: 03-26-2024 Non-patient / Non-visit MD Alessia Steven Work Phone: [facility] Work Phone: Start: 03-26-2024 MD Shantel painting Work Phone: [facility] Work Phone: Start: 03-25-2024 End: 03-25-2024 Patient encounter procedure MD Shantel Steven Work Phone: [facility] Work Phone: Start: 03-25-2024 End: 03-25-2024 MD Shantel Steven Work Phone: [facility] Work Phone: Start: 03-13-2024 End: 03-13-2024 ambulatory MD Shantel Steven Work Phone: [facility] Work Phone: Start: 03-13-2024 End: 03-13-2024 Patient encounter procedure MD Shantel Steven Work Phone: [facility] [address] Work Phone: Start: 02-19-2024 ambulatory [facility] Facility :[facility] Start: 02-15-2024 End: 02-15-2024 ambulatory [facility] Work Phone: Start: 02-15-2024 End: 02-15-2024 Patient encounter procedure [facility] Work Phone: Start: 01-29-2024 Non-patient / Non-visit [facility] Work Phone: Start: 01-24-2024 Non-patient / Non-visit [facility] Work Phone: Start: 01-22-2024 Non-patient / Non-visit [facility] Work Phone: Start: 01-18-2024 End: 01-18-2024 Patient encounter procedure [facility] Work Phone: Start: 01-15-2024 Non-patient / Non-visit [facility] Work Phone: Start: 01-04-2024 Non-patient / Non-visit [facility] Work Phone: Start: 12-18-2023 End: 12-18-2023 ambulatory Shantel Tenisha Other [employer] Other Start: 12-18-2023 Telephone encounter Shantel Tenisha [facility] Start: 11-19-2023 End: 11-19-2023 ambulatory Shantel Tenisha Other [employer] Other Start: 11-19-2023 Telephone encounter Shantel Tenisha [facility] Start: 10-23-2023 End: 10-23-2023 ambulatory Néstorghassan Nhungloves Other [employer] Other Start: 10-23-2023 Office outpatient ne w 30 minutes Azghassan Nhungloves [facility] [place] Start: 10-22-2023 End: 10-22-2023 ambulatory Shantel Tenisha Other [employer] Other Start: 10-22-2023 Telephone encounter Shantel Steven [facility] Start: 10-18-2023 End: 10-18-2023 ambulatory Shantel Tenisha Other [employer] Other Start: 10-18-2023 Office outpatient vi sit 15 minutes Shantel Tenisha [facility] Start: 09-07-2023 End: 09-07-2023 ambulatory Hsantel Tenisha Other [employer] Other Start: 09-07-2023 Telephone encounter Shantel Steven [facility] Start: 09-04-2023 End: 09-04-2023 ambulatory Shantel Steven Other [employer] Other Start: 09-04-2023 Office outpatient vi sit 25 minutes Shantel Tenisha [facility] Start: 08-23-2023 End: 08-23-2023 ambulatory Shantel Tenisha Other [employer] Other Start: 08-23-2023 Telephone encounter Shantel Steven [facility] Start: 07-23-2023 End: 07-23-2023 ambulatory Shantel Steven Other [employer] Other Start: 07-23-2023 Telephone encounter Shantel Steven [facility] Start: 07-17-2023 End: 07-17-2023 ambulatory Shantel Tenisha Other [employer] Other Start: 07-17-2023 Office outpatient vi sit 25 minutes Shantel Tenisha [facility] Start: 05-30-2023 End: 05-30-2023 ambulatory Shantel Tenisha Other [employer] Other Start: 05-30-2023 Telephone encounter Shantel Steven [facility] Start: 05-22-2023 End: 05-22-2023 ambulatory Shantel Steven Other [employer] Other Start: 05-22-2023 Telephone encounter Shantel Steven [facility] Start: 05-16-2023 End: 05-16-2023 ambulatory Shantel Steven Other [employer] Other Start: 05-16-2023 Telephone encounter Shantel Steven [facility] Start: 05-07-2023 End: 05-07-2023 ambulatory Shantel Steven Other [employer] Other Start: 05-07-2023 Telephone encounter Shantel Steven [facility] Start: 04-30-2023 End: 04-30-2023 ambulatory Shantel Steven Other [employer] Other Start: 04-30-2023 Office outpatient vi sit 25 minutes Shantel Tenisha [facility] Start: 04-25-2023 End: 04-25-2023 ambulatory Shantel Tenisha Other [employer] Other Start: 04-25-2023 Telephone encounter Shantel Steven [facility] Start: 04-12-2023 End: 04-12-2023 ambulatory Shantel Steven Other [employer] Other Start: 04-12-2023 Telephone encounter Shantel Steven [facility] Start: 03-09-2023 End: 03-09-2023 ambulatory Shantel Steven Other [employer] Other Start: 03-09-2023 Office outpatient vi sit 15 minutes Shantel Steven [facility] Start: 03-07-2023 End: 03-07-2023 ambulatory Shantel Steven Other [employer] Other Start: 03-07-2023 Telephone encounter Shantel Steven [facility] Start: 03-06-2023 End: 03-06-[address] SHANTEL STEVEN Facility:[facility] Start: 03-05-2023 End: 03-05-2023 ambulatory Shantel Steven Other [employer] Other Start: 03-05-2023 Telephone encounter Shantel Steven [facility] Start: 02-26-2023 End: 02-26-2023 ambulatory Shantel Steven Other [employer] Other Start: 02-26-2023 Telephone encounter Shantel Steven [facility] Start: 02-24-2023 End: 02-24-[address] SHANTEL STEVEN Facility:[facility] Start: 02-23-2023 End: 02-23-2023 ambulatory Shantel Steven Other [employer] Other Start: 02-23-2023 Telephone encounter Shantel Steven [facility] Start: 02-20-2023 End: 02-20-2023 ambulatory Shantel Steven Other [employer] Other Start: 02-20-2023 Transitional care luz cabral srvc 14 day discharge Shantel Steven [facility] Start: 02-16-2023 End: 02-16-2023 ambulatory Shantel Steven Other [employer] Other Start: 02-16-2023 Telephone encounter Shantel Steven [facility] Start: 02-13-2023 End: 02-14-[address] SHANTEL STEVEN Facility:[facility] Start: 02-02-2023 End: 02-02-2023 ambulatory Shantel Steven Other [employer] Other Start: 02-02-2023 Telephone encounter Shantel Tenisha [facility] Start: 01-16-2023 End: 01-17-[address] DOCTOR CARMONA Facility:[facility] Start: 01-05-2023 End: 01-05-2023 ambulatory BIN ROJAS Facility:[facility] Start: 01-01-2023 End: 01-02-2023 ambulatory ANALISA BRYANT Facility:[facility] Start: 11-29-2022 End: 11-29-2022 ambulatory Shantel Steven Other [employer] Other Start: 11-29-2022 Telephone encounter Shantel Tenisha [facility] Start: 11-27-2022 End: 11-27-2022 ambulatory Shantel Steven Other [employer] Other Start: 11-27-2022 Telephone encounter Shantel Tenisha [facility] Start: 11-24-2022 End: 11-24-2022 ambulatory Shantel Steven Other [employer] Other Start: 11-24-2022 Telephone encounter Shantel Tenisha [facility] Start: 11-06-2022 ambulatory YAMEL PANDYA Facility :[facility] Start: 09-15-2022 End: 09-16-[address] SHANTEL STEVEN Facility:[facility] Start: 08-04-2022 End: 08-04-2022 Patient encounter procedure Bin SORENSON [facility] [place] Start: 05-02-2022 End: 05-02-[address] SHANTEL STEVEN Facility: Start: 08-25-2021 Office outpatient ne w 45 minutes Akbar Baker II [facility] Start: 08-09-2017 End: 08-12-2017 Ambulatory PROVIDER UNKNOWN Facility:[facility] Procedures Date Procedure Procedure Detail Performing Clinician Start: 07-31-2025 Plain chest X-ray Shantel Steven MD Work Phone: Start: 07-29-2025 Plain chest X-ray Shantel Steven MD Work Phone: Start: 06-08-2025 Shantel Steven MD Work Phone: [...] Treatment Date Care Activity Detail Author Start: 08-05-2025 Patient referral [facility] Work Phone: Start: 08-01-2025 End: 08-01-2025 [facility] Start: 07-30-2025 [facility] Start: 07-29-2025 Physical therapy procedure [facility] Start: 07-29-2025 Referral to occupati onal therapist [facility] Start: 07-29-2025 [facility] Start: 07-29-2025 Hospital admission [facility] Start: 06-08-2025 [facility] Start: 06-02-2025 [facility] Start: 06-02-2025 Urine culture [facility] Start: 03-24-2025 Patient referral [facility] Work Phone: Start: 12-10-2024 Patient referral [facility] Work Phone: Start: 10-20-2024 [facility] Start: 10-16-2024 Consultation [facility] Start: 10-16-2024 Hospital admission [facility] Start: 10-16-2024 Referral to vision teacher [facility] Start: 10-16-2024 Drainage of Bladder with Drainage Device, Via Natural or Artificial Opening Drainage of Bladder with Drainage Device, Via Natural or Artificial Opening [facility] Start: 10-16-2024 Performance of Cardi ac Pacing, Continuous Performance of Cardiac Pacing, Continuous [facility] Start: 10-01-2024 End: 10-01-2024 Patient encounter procedure [facility] Comment on above: Arrived Start: 09-30-2024 End: 09-30-2024 Patient encounter procedure 09/30/2024 1:00 PM EST Office Visit [facility] [place] [address] [place] [id number] Wanda Patel DO [address] [place], [place] [id number] [facility] [address] Start: 09-04-2024 End: 09-04-2024 Patient encounter procedure 09/04/2024 1:20 PM EDT Office Visit [facility] [place] [address] [place] [address] Lizett Jacinto NP [address] [place], [place] [facility] [address] Start: 07-22-2024 End: 07-22-2024 Patient encounter procedure 07/22/2024 1:10 PM EDT Office Visit [facility] [address] [facility] [address] [place] [id number] Christel Chacon MD [address] [facility] [address] [place], [place] [id number] Arrived [facility] Comment on above: Arrived Start: 07-17-2024 Bacteria identified in Urine by Culture [facility] Start: 07-17-2024 [facility] Start: 07-15-2024 End: 07-15-2024 Patient encounter procedure 07/15/2024 1:10 PM EDT Office Visit [facility] [address] [facility] [address] [place] [address] Christel Chacon MD [address] [facility] [address] [place] [address] [facility] Start: 2024 Influenza vaccination Influenza Vacc ine (#1) [facility] Start: 07-10-2024 End: 07-10-2024 Patient encounter procedure 07/10/2024 1:40 PM EDT Office Visit [facility] [place] [address] [place] [address] Lizett Jacinto NP [address] [place], [place] Arrived [facility] [address] Comment on above: Arrived Start: 06-25-2024 Patient referral [facility] Work Phone: Start: 06-16-2024 Patient referral [facility] Work Phone: Start: 05-07-2024 Patient referral [facility] Work Phone: Start: 05-04-2024 Blood Culture 1 Blood Culture 1 [facility] Start: 02-15-2024 Patient referral [facility] Work Phone: Basophils [#/volume] in Blood by Automated count [facility] Basophils/100 leukoc ytes in Blood by Automated count [facility] Comprehensive metabo lic 1999 panel - Serum or Plasma [facility] Comprehensive metabo lic 1999 panel - Serum or Plasma [facility] CT Abdomen and Pelvi s WO contrast [facility] Eosinophils/100 leukocytes in Blood by Automated count [facility] Erythrocyte distribu tion width [Ratio] by Automated count [facility] Erythrocytes [#/volu me] in Blood [facility] Hematocrit [Volume Fraction] of Blood [facility] Hemoglobin [Mass/vol ume] in Blood [facility] Leukocytes [#/volume ] corrected for nucleated erythrocytes in Blood by Automated coun [facility] Leukocytes [#/volume ] in Blood [facility] Lymphocytes [#/volum e] in Blood by Automated count [facility] Lymphocytes/100 leukocytes in Blood by Automated count [facility] MCH [Entitic mass] b y Automated count [facility] MCHC [Mass/volume] b y Automated count [facility] MCV [Entitic volume] by Automated count [facility] Microalbumin [Mass/volume] in Urine [facility] Monocytes [#/volume] in Blood by Automated count [facility] Monocytes/100 leukoc ytes in Blood by Automated count [facility] Neutrophils [#/volum e] in Blood by Automated count [facility] Neutrophils/100 leukocytes in Blood by Automated count [facility] Nucleated erythrocyt es [Presence] in Blood by Automated count [facility] Patient Education [facility] Work Phone: Patient referral [facility] Work Phone: Platelet mean volume [Entitic volume] in Blood by Automated count [facility] Platelets [#/volume] in Blood [facility] Renal function 1999 panel - Serum or Plasma [facility] Renal function 1999 panel - Serum or Plasma [facility] Renal function 1999 panel - Serum or Plasma [facility] US Ax[facility] Immunizations Immunization Date Immunization Notes Care Provider Fa aga 01-18-2024 Pneumococcal Conjugate Vaccine, 20 valent [facility] 09-04-2023 influenza, high dose seasonal, preservative-free Shantel Steven Other [employer] Other 09-04-2023 influenza virus vaccine, unspecified formulation [facility] 02-04-2021 COVID-19 mRNA, Comirnaty (Pfizer) [facility] 01-21-2021 COVID-19 mRNA, Comirnaty (Pfizer) [facility] 10-09-2018 influenza virus vaccine, split virus (incl. purified surface antigen) Shantel Steven Other [employer] Other 10-09-2018 influenza virus vaccine, unspecified formulation [facility] NEGATED: Highlighted row has not occurred!10-17-2024 influenza, high dose seasonal, preservative-free Jorge Luis Zavala DO Work Phone: [facility] NEGATED: Highlighted row has not occurred!08-21-2019 influenza virus vaccine, split virus (incl. purified surface antigen) Shantel Steven Other [employer] Other Payers Date Payer Category Payer Medicare [id number] 2024 Self-pay [id number] 2023 Medicare HUMANA MEDICARE ADVANTAGE HUMANA MEDICARE [id number] 2023-Present [address] [place] [id number] 2023 Medicare (Managed Care) HUMANA M EDICARE ADVANTAGE [id number] 1959 Medicare [id number] 1959 Self-pay [id number] 1945 Unknown [id number] 2.16.840.1.472495.3.579. 2.593 1946 Unknown [id number] 2.16.840.1.992964.3.579. 2.593 1946 Unknown [id number] 2.16.840.1.689482.3.579. 2.593 1946 Unknown [id number] 2.16.840.1.282648.3.579. 2.593 1946 Unknown [id number] 2.16.840.1.411134.3.579. 2.593 1946 Unknown [id number] 2.16.840.1.880665.3.579. 2.593 1946 Unknown [id number] 2.16.840.1.068596.3.579. 2.593 1946 Unknown [id number] 2.16.840.1.997602.3.579. 2.593 1946 Unknown [id number] 2.16.840.1.349501.3.579. 2.593 1946 Unknown [id number] 2.16.840.1.724489.3.579. 2.1259 1946 Unknown [id number] 2.16.840.1.077716.3.579. 2.1259 1946 Unknown [id number] 2.16.840.1.302496.3.579. 2.1259 1946 Unknown [id number] 2.16.840.1.571242.3.579. 2.727 1946 Unknown [id number] 2.16.840.1.395976.3.579. 2.727 1946 Unknown [id number] 2.16.840.1.447561.3.579. 2.727 1946 Unknown [id number] 2.16.840.1.388061.3.579. 2.727 1946 Unknown [id number] 2.16.840.1.371652.3.579. 2.727 Unknown Unknown [id number] 2.16.840.1.418014.3.579. 2.531 Unknown [id number] 2.16.840.1.115119.3.579. 2.531 Unknown [id number] 2.16.840.1.679259.3.579. 2.531 Unknown [id number] 2.16.840.1.910952.3.579. 2.531 Unknown [id number] 2.16.840.1.371320.3.579. 2.531 Unknown [id number] 2.16.840.1.570227.3.579. 2.531 Unknown [id number] 2.16.840.1.091208.3.579. 2.531 Social History Date Type Detail Facility Start: 07-22-2024 End: 10-01-2024 Sex Assigned At [facility] [employer] Other Start: 08-04-2022 End: 07-29-2025 Tobacco smoking status Ex-smoker (finding) [facility] [place] Tobacco smoking status Never Gener [facility] [place] Start: 1945 Sex Assigned At Female F [facility] History of tobacco use Current smoker [facility] History of tobacco use Cigarette Smoker [...] Start: 12-26-2024 End: 04-21-2025 Sex Female (finding) [facility] Start: 03-12-2025 End: 06-10-2025 Tobacco smoking status NHIS Never smoked tobacco (finding) [facility] Start: 07-30-2025 [facility] Work Phone: Medical Equipment Procedure Code Equipment Code Equipment Origin al Text Equipment Identifier Dates Blood Sugar Diagnostic (True Metrix Glucose Test Strip) strip Start: 03-31-2024 Pen Needle, Diab etic (Comfort Ez Pen Keaton) 33 gauge x 5/32 needle Start: 03-25-2024 Blood Sugar Diagnostic (True Metrix Glucose Test Strip) strip Start: 03-31-2024 End: 03-31-2024 Blood Sugar Diagnostic (True Metrix Glucose Test Strip) strip Start: 03-31-2024 Pen Needle, Diab etic (Comfort Ez Pen Keaton) 33 gauge x 5/32 needle Start: 03-25-2024 Blood Sugar Diagnostic (True Metrix Glucose Test Strip) strip Start: 03-31-2024 End: 03-31-2024 Blood Sugar Diagnostic (True Metrix Glucose Test Strip) strip Start: 03-31-2024 Pen Needle, Diab etic (Comfort Ez Pen Keaton) 33 gauge x 5/32 needle Start: 03-25-2024 Blood Sugar Diagnostic (True Metrix Glucose Test Strip) strip Start: 03-31-2024 End: 03-31-2024 Blood Sugar Diagnostic (True Metrix Glucose Test Strip) strip Start: 03-31-2024 Pen Needle, Diab etic (Comfort Ez Pen Keaton) 33 gauge x 5/32 needle Start: 03-25-2024 Blood Sugar Diagnostic (True Metrix Glucose Test Strip) strip Start: 03-31-2024 End: 03-31-2024 Blood Sugar Diagnostic (True Metrix Glucose Test Strip) strip Start: 03-31-2024 Pen Needle, Diab etic (Comfort Ez Pen Keaton) 33 gauge x 5/32 needle Start: 03-25-2024 Blood Sugar Diagnostic (True Metrix Glucose Test Strip) strip Start: 03-31-2024 End: 03-31-2024 Blood Sugar Diagnostic (True Metrix Glucose Test Strip) strip Start: 03-31-2024 Pen Needle, Diab etic (Comfort Ez Pen Keaton) 33 gauge x 5/32 needle Start: 03-25-2024 Blood Sugar Diagnostic (True Metrix Glucose Test Strip) strip Start: 03-31-2024 End: 03-31-2024 Blood Sugar Diagnostic (True Metrix Glucose Test Strip) strip Start: 03-31-2024 Pen Needle, Diab etic (Comfort Ez Pen Keaton) 33 gauge x 5/32 needle Start: 03-25-2024 Blood Sugar Diagnostic (True Metrix Glucose Test Strip) strip Start: 03-31-2024 End: 03-31-2024 Blood Sugar Diagnostic (True Metrix Glucose Test Strip) strip Start: 03-31-2024 Pen Needle, Diab etic (Comfort Ez Pen Keaton) 33 gauge x 5/32 needle Start: 03-25-2024 Blood Sugar Diagnostic (True Metrix Glucose Test Strip) strip Start: 03-31-2024 End: 03-31-2024 Blood Sugar Diagnostic (True Metrix Glucose Test Strip) strip Start: 03-31-2024 Pen Needle, Diab etic (Comfort Ez Pen Keaton) 33 gauge x 5/32 needle Start: 03-25-2024 Blood Sugar Diagnostic (True Metrix Glucose Test Strip) strip Start: 03-31-2024 End: 03-31-2024 Pen Needle, Diab etic (Comfort Ez Pen Keaton) 33 gauge x 5/32 needle Start: 03-25-2024 Blood Sugar Diagnostic (True Metrix Glucose Test Strip) strip Start: 03-31-2024 End: 10-16-2024 Blood Sugar Diagnostic (True Metrix Glucose Test Strip) strip Start: 03-31-2024 End: 03-31-2024 Pen Needle, Diab etic (Comfort Ez Pen Keaton) 33 gauge x 5/32 needle Start: 03-25-2024 Blood Sugar Diagnostic (True Metrix Glucose Test Strip) strip Start: 03-31-2024 End: 10-16-2024 Blood Sugar Diagnostic (True Metrix Glucose Test Strip) strip Start: 03-31-2024 End: 03-31-2024 Pen Needle, Diab etic (Comfort Ez Pen Keaton) 33 gauge x 5/32 needle Start: 03-25-2024 Blood Sugar Diagnostic (True Metrix Glucose Test Strip) strip Start: 03-31-2024 End: 10-16-2024 Blood Sugar Diagnostic (True Metrix Glucose Test Strip) strip Start: 03-31-2024 End: 03-31-2024 Pen Needle, Diab etic (Comfort Ez Pen Keaton) 33 gauge x 5/32 needle Start: 03-25-2024 Blood Sugar Diagnostic (True Metrix Glucose Test Strip) strip Start: 03-31-2024 End: 10-16-2024 Blood Sugar Diagnostic (True Metrix Glucose Test Strip) strip Start: 03-31-2024 End: 03-31-2024 Pen Needle, Diab etic (Comfort Ez Pen Keaton) 33 gauge x 5/32 needle Start: 03-25-2024 Blood Sugar Diagnostic (True Metrix Glucose Test Strip) strip Start: 03-31-2024 End: 10-16-2024 Blood Sugar Diagnostic (True Metrix Glucose Test Strip) strip Start: 03-31-2024 End: 03-31-2024 Pen Needle, Diab etic (Comfort Ez Pen Keaton) 33 gauge x 5/32 needle Start: 03-25-2024 Blood Sugar Diagnostic (True Metrix Glucose Test Strip) strip Start: 03-31-2024 End: 10-16-2024 Blood Sugar Diagnostic (True Metrix Glucose Test Strip) strip Start: 03-31-2024 End: 03-31-2024 Pen Needle, Diab etic (Comfort Ez Pen Keaton) 33 gauge x 5/32 needle Start: 03-25-2024 Blood Sugar Diagnostic (True Metrix Glucose Test Strip) strip Start: 03-31-2024 End: 10-16-2024 Blood Sugar Diagnostic (True Metrix Glucose Test Strip) strip Start: 03-31-2024 End: 03-31-2024 Pen Needle, Diab etic (Comfort Ez Pen Keaton) 33 gauge x 5/32 needle Start: 03-25-2024 Blood Sugar Diagnostic (True Metrix Glucose Test Strip) strip Start: 03-31-2024 End: 10-16-2024 Blood Sugar Diagnostic (True Metrix Glucose Test Strip) strip Start: 03-31-2024 End: 03-31-2024 Goals Date Patient Goal Desired Activity /State Functional Status Date Assessment Result Facility 08-01-2025 Functional status Patient at Baseline [facility] Work Phone: 07-29-2025 Functional status Patient Not at Baseline [facility] Work Phone: 11-04-2024 Functional Status N/A [facility] 10-20-2024 Functional status Patient at Baseline [facility] Work Phone: 08-04-2022 Functional Status N/A [facility] Mental Status Date Assessment Result Facility 08-01-2025 Cognitive function Patient at Baseline [facility] Work Phone: 07-29-2025 Cognitive function Patient at Baseline [facility] Work Phone: 10-20-2024 Cognitive function Cognitive Sta tus Patient at Baseline [facility] Work Phone: Clinical Notes 08-25-2021 to 07-31-2025 Note Date & Type Note Facility 07-31-2025 Progress note Note Date/Time July 31, 2025 12:14pm [facility] [address] [place] [address] Hospitalist Progress Note Signed Patient: Joe Call MR#: [id number] : 1945 Acct:[id number] Age/Sex: 80 / F Adm Date: 5 Loc: Room: [address] [place] [address] Type: ADM IN Attending Dr: Chasity Castro MD Copies to: ~ Date of Service: 07/31/2025 Subjective Subjective Narrative: Patient has been seen and examined today, Patient is feeling better, her shortness of breath improved, she wants to go home she tells me that she is urinating quite well, Upper extremity edema improved, still has lower extremity edema but improved since admission General -awake, alert, oriented ?3, not in acute distress, patient does not appear to be in respiratory distress, she is on 2 L nasal cannula which is her baseline Cardiovascular -S1 with S2, no murmurs, no rubs, no gallops Pulmonary -breath sounds bilaterally, no wheezing, few crackles at the bases Gastrointestinal - abdomen is soft, nondistended, nontender, bowel sounds positive, there is no rigidity, no rebound Extremities -2+ edema in lower extremities improved since admission, she does have chronic lymphedema of the left upper extremity mainly in in the forearm area, which is not new Neurological -no focal neurological dysfunction noted Laboratory work up and Imaging studies reviewed clinical research monitor - reviewed, normal sinus rhythm noted, no significant bradycardias EKG - personally reviewed by me. NSR with nonspecific changes Exam Physical Exam Vital Signs: Temp Pulse Resp BP Pulse Ox O2 Del Method O2 Flow Rate 36.4 C 79 18 151/82 H 94 L Nasal Cannula 2 07/31/25 00:00 07/31/25 11:13 07/31/25 11:13 07/31/25 11:13 07/31/25 11:13 07/31/25 11:13 07/31/25 11:13 FiO2 2 07/30/25 08:00 Objective Lab Results 07/31/25 08:18 07/31/25 08:18 Meds Allergies and Active Meds Allergies Iodinated Contrast Media Allergy (Unknown, Verified 07/29/25 10:04) Rash shellfish derived Allergy (Unknown, Verified 07/29/25 10:04) Rash Sulfa (Sulfonamide Antibiotics) Allergy (Unknown, Verified 07/29/25 10:04) Rash sulfacetamide Allergy (Unknown, Verified 07/29/25 10:04) diarrhea Active Meds: Active Medications Generic Name Dose Route Start Last Admin Trade Name Dakotaq PRN Reason Stop Dose Admin Acetaminophen 650 mg 07/29/25 16:41 07/30/25 06:48 Acetaminophen 325 Mg Tablet PO 07/29/26 16:40 650 mg Q4H PRN Administration Pain Scale 1 - 5 Albuterol 2.5 mg 07/29/25 16:41 Albuterol Neb 2.5 Mg/3 Ml Vial.Neb INHALATION 07/29/26 16:40 Q2H PRN Shortness Of Breath Alprazolam 0.25 mg 07/29/25 16:43 Alprazolam 0.25 Mg Tablet PO 01/25/26 16:42 TID PRN Anxiety Amlodipine Besylate 5 mg 07/30/25 09:00 07/31/25 09:02 Amlodipine 5 Mg Tablet PO 07/30/26 08:59 5 mg DAILY PAU Administration Bumetanide 1 mg 07/29/25 16:50 07/31/25 09:09 Bumetanide 1 Mg/4 Ml Vial IV-PUSH 07/29/26 16:49 1 mg BID@0800,1600 PAU Administration Buspirone HCl 5 mg 07/29/25 21:00 07/31/25 09:02 Buspirone 5 Mg Tablet PO 07/29/26 20:59 5 mg BID PAU Administration Dextrose 0 gm 07/29/25 16:45 Dextrose 50% In Water 25 Gm/50 Ml Syringe IV-PUSH 07/29/26 16:44 PRN PRN Hypoglycemia Diphenoxylate HCl/Atropine 1 tab 07/29/25 16:43 Diphenoxylate Hcl/Atropine 1 Tab Tablet PO 01/25/26 16:42 Q6HR PRN Diarrhea Docusate Sodium 200 mg 07/29/25 16:41 Docusate 100 Mg Capsule PO 07/29/26 16:40 BID PRN Constipation Duloxetine HCl 20 mg 07/30/25 09:00 07/31/25 09:02 Duloxetine 20 Mg Capsule. PO 07/30/26 08:59 20 mg DAILY PAU Administration Glucose 0 gm 07/29/25 16:45 Dextrose 40% Gel 15 Gm Tube PO 07/29/26 16:44 PRN PRN Hypoglycemia Hydralazine HCl 10 mg 07/29/25 16:41 Hydralazine 20 Mg/Ml Vial IV-PUSH 07/29/26 16:40 Q4H PRN if SBP > 185 Insulin Aspart 0 units 07/29/25 17:00 07/31/25 11:53 Insulin Aspart 300 Units/3 Ml SUBCUT 07/29/26 16:59 Not Given TID.WM.HS [facility] Protocol Levothyroxine Sodium 125 mcg 07/30/25 06:30 07/31/25 05:47 Levothyroxine 125 Mcg Tablet PO 07/30/26 06:29 125 mcg DAILY@0630 PAU Administration Pantoprazole Sodium 40 mg 07/30/25 09:00 07/31/25 09:02 Pantoprazole 40 Mg Tablet. PO 07/30/26 08:59 40 mg BID PAU Administration Rivaroxaban 15 mg 07/30/25 09:00 07/31/25 09:02 Rivaroxaban 15 Mg Tablet PO 07/30/26 08:59 15 mg DAILY PAU Administration Sodium Chloride 0 ml 07/29/25 10:04 07/29/25 12:10 Sodium Chloride 0.9 % 10 Ml Syringe IV-PUSH 07/29/26 10:03 10 ml PRN PRN Administration Flush Zinc Oxide 1 applic 07/30/25 13:13 Zinc Oxide 20% Ointment 56 Gm Tube TOPICAL 07/30/26 13:12 PRN PRN Rash A&P - Hospitalist Assessment/Plan (1) Acute exacerbation of CHF (congestive heart failure): (2) Longstanding persistent atrial fibrillation: (3) IBS (irritable bowel syndrome): (4) CKD (chronic kidney disease) stage 3, GFR 30-59 ml/min: (5) Diarrhea: Plan acute on chronic diastolic congestive heart failure with underlying chronic kidney disease stage III and obstructive sleep apnea Echocardiogram left ejection fraction with moderate pulmonary hypertension at 55and mild mitral stenosis Continue with Lasix, strict input and output, per patient she has PureWick catheter and it was emptied couple times already Clinically she is feeling better Paroxysmal atrial fibrillation, currently patient remains in normal sinus rhythmcontinue with Xarelto therapy, kidney dose adjusted Chronic kidney disease stage III, creatinine stable Hypomagnesemia replacement Diabetes mellitus type 2,Glucose at the lower range, hold long-acting insulin, continue with sliding SCALE only Hypoxic respiratory failure, on 2 L nasal cannula continuously Documented By: Chasity Castro MD 07/31/251209 Signed By: <Electronically signed by Chasity Castro MD> 07/31/25 1214 [facility] Work Phone: 1(566) 404-918209-18-2025 Progress note Author Chasity Castro [facility] Note Date/Time July 30, 2025 1:28pm [facility] [address] [place] [address] Hospitalist Progress Note Signed with Jorge Patient: Joe Call MR#: [id number] : 1945 Acct:[id number] Age/Sex: 80 / F Adm Date: 5 Loc: Room: [address] [place] [address] Type: ADM IN Attending Dr: Chasity Castro MD Copies to: ~ ADDENDUM1 Severe pulmonary hypertension Addendum Documented By: Chasity Castro MD 07/30/25 1328 Addendum Signed By: <Electronically signed by Chasity Castro MD> 07/30/258 Date of Service: 07/30/2025 Subjective Subjective Narrative: Patient has been seen and examined today, she is feeling better, her shortness of breath is improved, she feels that she is not gasping for the air anymore, she denies any chest pain, minimal cough, no fevers no chills, no palpitations no dizziness. She denies any abdominal pain. General -awake, alert, oriented ?3, not in acute distress, patient does not appear to be in respiratory distress, she is on 2 L nasal cannula which is her baseline Cardiovascular -S1 with S2, no murmurs, no rubs, no gallops Pulmonary -breath sounds bilaterally, no wheezing, few crackles at the bases Gastrointestinal - abdomen is soft, nondistended, nontender, bowel sounds positive, there is no rigidity, no rebound Extremities -2+ edema in lower extremities, she does have chronic lymphedema of the left upper extremity mainly in in the forearm area, which is not new Neurological -no focal neurological dysfunction noted Laboratory work up and Imaging studies reviewed clinical research monitor - reviewed, normal sinus rhythm noted, no significant bradycardias EKG - personally reviewed by me. NSR with nonspecific changes Exam Physical Exam Vital Signs: Temp Pulse Resp BP Pulse Ox O2 Del Method O2 Flow Rate 36.6 C 62 18 126/59 L 96 Nasal Cannula 2 07/30/25 08:00 07/30/25 08:00 07/30/25 08:00 07/30/25 08:00 07/30/25 08:00 07/30/25 08:00 07/30/25 08:00 FiO2 2 07/30/25 08:00 Objective Lab Results 07/30/25 07:36 07/30/25 07:36 Meds Allergies and Active Meds Allergies Iodinated Contrast Media Allergy (Unknown, Verified 07/29/25 10:04) Rash shellfish derived Allergy (Unknown, Verified 07/29/25 10:04) Rash Sulfa (Sulfonamide Antibiotics) Allergy (Unknown, Verified 07/29/25 10:04) Rash sulfacetamide Allergy (Unknown, Verified 07/29/25 10:04) diarrhea Active Meds: Active Medications Generic Name Dose Route Start Last Admin Trade Name Fremaricruz PRN Reason Stop Dose Admin Acetaminophen 650 mg 07/29/25 16:41 07/30/25 06:48 Acetaminophen 325 Mg Tablet PO 07/29/26 16:40 650 mg Q4H PRN Administration Pain Scale 1 - 5 Albuterol 2.5 mg 07/29/25 16:41 Albuterol Neb 2.5 Mg/3 Ml Vial.Neb INHALATION 07/29/26 16:40 Q2H PRN Shortness Of Breath Alprazolam 0.25 mg 07/29/25 16:43 Alprazolam 0.25 Mg Tablet PO 01/25/26 16:42 TID PRN Anxiety Amlodipine Besylate 5 mg 07/30/25 09:00 07/30/25 08:20 Amlodipine 5 Mg Tablet PO 07/30/26 08:59 5 mg DAILY PAU Administration Bumetanide 1 mg 07/29/25 16:50 07/30/25 08:20 Bumetanide 1 Mg/4 Ml Vial IV-PUSH 07/29/26 16:49 1 mg BID@0800,1600 PAU Administration Buspirone HCl 5 mg 07/29/25 21:00 07/30/25 08:20 Buspirone 5 Mg Tablet PO 07/29/26 20:59 5 mg BID PAU Administration Dextrose 0 gm 07/29/25 16:45 Dextrose 50% In Water 25 Gm/50 Ml Syringe IV-PUSH 07/29/26 16:44 PRN PRN Hypoglycemia Diphenoxylate HCl/Atropine 1 tab 07/29/25 16:43 Diphenoxylate Hcl/Atropine 1 Tab Tablet PO 01/25/26 16:42 Q6HR PRN Diarrhea Docusate Sodium 200 mg 07/29/25 16:41 Docusate 100 Mg Capsule PO 07/29/26 16:40 BID PRN Constipation Duloxetine HCl 20 mg 07/30/25 09:00 07/30/25 08:20 Duloxetine 20 Mg Capsule.Dr PO 07/30/26 08:59 20 mg DAILY PAU Administration Glucose 0 gm 07/29/25 16:45 Dextrose 40% Gel 15 Gm Tube PO 07/29/26 16:44 PRN PRN Hypoglycemia Hydralazine HCl 10 mg 07/29/25 16:41 Hydralazine 20 Mg/Ml Vial IV-PUSH 07/29/26 16:40 Q4H PRN if SBP > 185 Insulin Aspart 0 units 07/29/25 17:00 07/30/25 08:20 Insulin Aspart 300 Units/3 Ml SUBCUT 07/29/26 16:59 Not Given TID.WM.HS PAU Protocol Levothyroxine Sodium 125 mcg 07/30/25 06:30 07/30/25 06:48 Levothyroxine 125 Mcg Tablet PO 07/30/26 06:29 125 mcg DAILY@0630 PAU Administration Pantoprazole Sodium 40 mg 07/30/25 09:00 07/30/25 08:20 Pantoprazole 40 Mg Tablet.Dr PO 07/30/26 08:59 40 mg BID PAU Administration Rivaroxaban 15 mg 07/30/25 09:00 07/30/25 08:20 Rivaroxaban 15 Mg Tablet PO 07/30/26 08:59 15 mg DAILY PAU Administration Sodium Chloride 0 ml 07/29/25 10:04 07/29/25 12:10 Sodium Chloride 0.9 % 10 Ml Syringe IV-PUSH 07/29/26 10:03 10 ml PRN PRN Administration Flush A&P - Hospitalist Assessment/Plan (1) Acute exacerbation of CHF (congestive heart failure): (2) Longstanding persistent atrial fibrillation: (3) IBS (irritable bowel syndrome): (4) CKD (chronic kidney disease) stage 3, GFR 30-59 ml/min: (5) Diarrhea: Plan acute on chronic diastolic congestive heart failure with underlying chronic kidney disease stage III and obstructive sleep apnea Echocardiogram pending Continue with Lasix, urine output not strictly reported, we will ask for strict input and output, per patient she has PureWick catheter and it was emptied couple times already Clinically she is feeling better Paroxysmal atrial fibrillation, currently patient remains in normal sinus rhythmcontinue with Xarelto therapy Chronic kidney disease stage III, creatinine slightly worse, recheck in a.m., atthis point I will continue with diuresis therapy Hypomagnesemia replacement Diabetes mellitus type 2,Glucose at the lower range, hold long-acting insulin, continue with sliding SCALE only, continue with home therapy Hypoxic respiratory failure, on 2 L nasal cannula continuously Documented By: Chasity Castro MD 07/30/25 1049 Signed By: <Electronically signed by Chasity Castro MD> 07/30/25 1059 [facility] Work Phone: 1([phone]) 676-476509-18-2025 History and physical note Author Chasity Castro [facility] Note Date/Time July 30, 2025 10:49am [facility] [address] [place] [address] Hospitalist H&P Signed Patient: Joe Call MR#: [id number] : 1945 Acct:[id number] Age/Sex: 80 / F Adm Date: 5 Loc: Room: [address] [place] [address] Type: ADM IN Attending Dr: Chasity Castro MD Copies to: Alex Betts DO, RES MD Chasity Powell MD~ HPI DATE OF EXAMINATION: 07/29/25 CHIEF COMPLAINT: Shortness of breath HISTORY OF PRESENT ILLNESS: Mrs Call is a 80 yo F with history of CHF, DM2, CKD-Stage 3, hypothyroidism, anddiverticulitis s/p batsheva-colectomy presented with her to emergency department earlier today with a chief complaint of shortness of breath and increased LE edema. She has recently had several similar exacerbations over the past few weeks and sought care at [facility] for diuresis but left AMA due to behavioral concerns. She and her note that she is on chronic O2 (2L NC) at home as well as Lasix 40mg BID but despite this has been having increased shortness of breath and LE swelling. Vital signs on presentation to the ER today are stable with BP 158/71. Heart rate of 50 bpm, respirations 18/min, afebrile 98.2 ?F, 97% pulse oximetry on 2L NC. In the ER a CXR was consistent with CHF with left-sided effusion two thirds the way up with cardiomegaly and cephalization. Pt's white count was 6.0, hemoglobin 10.3, platelets of 218. Coags were within her limits sodium 143, potassium 5.1, bicarb 28.8, BUN of 51, creat 1.84 [id number], calcium 8.1, troponin is 13, BNP is 709. She was given Bumex 1mg and transdermal Nitropatch. At time of admission, she is resting in bed comfortably without chest pain or shortness of breath. She states that she hasn't slept in 5 days due to dyspnea, and she has constant diarrhea since her partial colectomy causing them difficulty with leaving their house. She notes leg swelling but denies much painand they note that she has been scheduled at [facility] to receive a Watchman devicefor her a-fib history however have needed to reschedule due to being sick and episodic diarrhea. Imaging 07/29 - XR/XR chest 2V* FINDINGS: Perihilar congestion and cardiomegaly. Interstitial thickening. Small right-sided and moderate left-sided effusions. No pneumothorax. IMPRESSION: CHF with moderate left-sided effusion. Physical Examination: GENERAL APPEARANCE: Alert, laying in bed AAOx3, comfortable appearing HEENT: NCAT, MMM NECK: No JVD CARDIAC: Normal S1 and S2. LUNGS: Coarse lung sounds bilaterally ABDOMEN: Soft, nontender. No guarding or signs of an acute abdomen MUSCULOSKELETAL: No joint erythema or tenderness. EXTREMITIES: 2+ LE edema bilaterally; chronic LUE edema s/p mastectomy NEUROLOGICAL: No focal deficits PSYCHIATRIC: Appropriate mood and affect Assessment and plan: 1. Acute hypoxic respiratory failure in setting of acute diastolic CHF (HFpEF) exacerbation with perihilar congestion and bilateral pleural effusions likely due to uncontrolled HTN vs Afib vs CKD. TTE from [place] 03/26/24 with 55-60% EF, severe elevated right-sided pressures RVSP 96mmHg. -Given 1mg Bumex in ED with some improvement. On home Lasix 40mg BID. -TTE pending -Continue diuresis Bumex with daily weights inputs/output levels -Monitor electrolytes -O2 supplementation, PRN albuterol, HTN management 2. Pulmonary HTN -As above; TTE pending, HTN management 3. CKD Stage III without apparent CARMELO. Continue to monitor daily BMP and urine output. 4. Parosxymal A-fib - currently NSR pt reports ~3 episodes lasting <1 minute perweek which she states can usually resolved by coughing hard. No current palpitations or chest pain. Scheduled for Watchman placement at [facility] -Continue home Xarelto 20mg QD -Hold BB for bradycardia -Check TSH, Mg 5. Hypertension with long standing JED; unable to tolerate CPAP use. Previously left [facility] AMA prior to full workup for secondary causes to include pheochromocytoma and Aldosterone/Renin ratio for possible hyperaldosteronism. A Renal artery US was completed and ruled out renal artery stenosis at [facility]. -Hydralazine PRN for SBP >185 6. DM2 with recently decreased appetite and low blood sugars. Typically takes 8 units at home recently per and still borderline low BG levels. -Monitor POC glucose with SSI insulin Code: Full Diet: Heart healthy DVT Prophylaxis: Xarelto [facility] Medical History Dietary counseling and surveillance IBS (irritable bowel syndrome) Dyspepsia Type 2 diabetes mellitus with hyperglycemia, with long-term current use of insulin Vasculitis Stress incontinence of urine Secondary hyperparathyroidism Osteoarthritis Nodular thyroid disease Lactose intolerance Memory changes Macular degeneration Lymph edema Lumbar spondylosis Lumbar degenerative disc disease skilled nursing (current) use of insulin Hypothyroidism Hypertension GERD (gastroesophageal reflux disease) Coronary artery disease CKD (chronic kidney disease), stage IV Acute on chronic diastolic CHF (congestive heart failure) After cataract Pancreatic insufficiency Cholecystectomy planned Back pain with history of spinal surgery Breast cancer A-fib Heart attack Diabetes Hyperlipidemia Surgical History History of surgery on arm Hx of cardiac cath History of back surgery History of colon resection Hx of cholecystectomy H/O colonoscopy History of appendectomy H/O: hysterectomy H/O mastectomy bilateral Family History Father Heart disease Family/Other Family history of other condition Legacy Famx Problem: Family history of DM:No Family History of Colon Cancer:1 DAUGHTER MVA Mother Heart disease Sister Alzheimer's dementia Social History Smoking Status: Former smoker Tobacco Type: cigarettes Substance Use Type: None Meds Medications and Allergies Allergies Iodinated Contrast Media Allergy (Unknown, Verified 07/29/25 10:04) Rash shellfish derived Allergy (Unknown, Verified 07/29/25 10:04) Rash Sulfa (Sulfonamide Antibiotics) Allergy (Unknown, Verified 07/29/25 10:04) Rash sulfacetamide Allergy (Unknown, Verified 07/29/25 10:04) diarrhea Home Medications vitamins A,C,X-oate-gemghj 4,296 mcg-226 mg-90 mg capsule (PreserVision AREDS) 1cap PO BID 01/17/24 [History Confirmed 07/29/25] pen needle, diabetic 33 gauge x 5/32 (Comfort EZ Pen Keaton) #100 ea 03/25/24 [Rx Confirmed 07/20/25] flash glucose scanning reader (FreeStyle Familia 2 [place]) #1 ea 09/10/24 [Rx Confirmed 07/29/25] alprazolam 0.25 mg tablet 0.25 mg PO TID PRN anxiety 02/19/25 [History Confirmed 07/29/25] cholecalciferol (vitamin D3) 125 mcg (5,000 unit) capsule 125 mcg PO DAILY 02/19/25 [History Confirmed 07/29/25] rivaroxaban 20 mg tablet (Xarelto) 20 mg PO DAILY 02/19/25 [History Confirmed 07/29/25] Novolin N FlexPen 100 unit/mL (3 mL) subcutaneous insulin pen (insulin NPH isophU-100 human) See Rx Instructions .Route .COMPLEX #15 mL 03/02/25 [Rx Confirmed 07/29/25] diphenoxylate-atropine 2.5 mg-0.025 mg tablet 1 tab PO Q6HR PRN diarrhea 7 days #28 tabs 03/24/25 [Rx Confirmed 07/29/25] omeprazole 40 mg capsule,delayed release 40 mg PO DAILY 04/21/25 [History Confirmed 07/29/25] famotidine 20 mg tablet See Rx Instructions .Route .COMPLEX #30 tabs 05/21/25 [Rx Confirmed 07/29/25] buspirone 5 mg tablet See Rx Instructions .Route .COMPLEX #60 tabs 05/29/25 [Rx Confirmed 07/29/25] duloxetine 20 mg capsule,delayed release 20 mg PO ONCE 06/10/25 [History Confirmed 07/29/25] metoprolol tartrate 25 mg tablet 25 mg PO BID 06/10/25 [History Confirmed 07/29/25] potassium chloride 20 mEq tablet,extended release 20 meq PO QDAY 07/01/25 [History Confirmed 07/29/25] amlodipine 5 mg tablet 5 mg PO DAILY #90 tabs 07/20/25 [Rx Confirmed 07/29/25] flash glucose sensor (FreeStyle Familia 2 Sensor kit) #1 kit 07/20/25 [Rx Confirmed 07/29/25] furosemide 40 mg tablet (Lasix) 40 mg PO BID #180 tabs 07/20/25 [Rx Confirmed 07/29/25] bknolaqw-whhisdabpm-infv-HC 3.5 mg-400-10,000 unit/g-1 % eye ointment 1 applic Eye-Both TID #3.5 grams 07/20/25 [Rx Confirmed 07/29/25] levothyroxine 125 mcg tablet See Rx Instructions .Route .COMPLEX #90 ea 07/23/25[Rx Confirmed 07/29/25] Portable Oxygen #1 ea 07/27/25 [Rx] insulin glargine 100 unit/mL (3 mL) subcutaneous pen 6 unit subcut QPM 07/29/25 [History Confirmed 07/29/25] triamcinolone acetonide 0.1 % topical cream 1 applic topical BID PRN rash 07/29/25 [History Confirmed 07/29/25] Exam Physical Exam Vital Signs: Pulse Resp BP Pulse Ox O2 Del Method O2 Flow Rate 58 L 24 187/77 H 98 Nasal Cannula 2 07/29/25 15:00 07/29/25 15:00 07/29/25 15:00 07/29/25 15:00 07/29/25 15:00 07/29/25 15:00 Results - Hospitalist H&P Lab Results Labs: Laboratory Last Values Corrected WBC 6.0 X10E3/uL (3.8-11.6) 07/29/25 11:04 Uncorrected WBC Count 6.0 x10E3/uL (3.8-11.6) 07/29/25 11:04 RBC 3.48 x10E6/uL (3.60-5.00) L 07/29/25 11:04 Hgb 10.3 g/dL (11.8-15.4) L 07/29/25 11:04 Hct 31.5 % (34.0-46.4) L 07/29/25 11:04 MCV 90.7 fl (80-100) 07/29/25 11:04 MCH 29.6 pg (24.7-34.3) 07/29/25 11:04 MCHC 32.6 g/dL (32.0-35.0) 07/29/25 11:04 RDW 17.5 % (11.9-15.3) H 07/29/25 11:04 Plt Count 218 x10E3/uL (150-450) 07/29/25 11:04 MPV 9.0 fl (6.3-10.7) 07/29/25 11:04 Neut % (Auto) 76.0 % (.) 07/29/25 11:04 Lymph % (Auto) 13.6 % (.) 07/29/25 11:04 Ventura % (Auto) 7.4 % (.) 07/29/25 11:04 Eos % (Auto) 1.7 % (.) 07/29/25 11:04 Baso % (Auto) 1.3 % (.) 07/29/25 11:04 Nucleat RBC Rel Count 0.1 /100 WBC (0-0.5) 07/29/25 11:04 Neut # (Auto) 4.5 x10E3/uL (1.8-7.7) 07/29/25 11:04 Lymph # (Auto) 0.8 x10E3/uL (1.00-4.8) L 07/29/25 11:04 Ventura # (Auto) 0.4 x10E3/uL (0.0-0.8) 07/29/25 11:04 Eos # (Auto) 0.1 x10E3/uL (0.0-0.45) 07/29/25 11:04 Baso # (Auto) 0.1 x10E3/uL (0.0-0.2) 07/29/25 11:04 Monocyte Dist Width 18.19 % (0.00-20.00) 07/29/25 11:04 PT 15.8 Seconds (9.0-12.9) H 07/29/25 11:04 INR 1.4 07/29/25 11:04 PHA Creatinine Clear 31.42 07/29/25 11:04 Sodium 143 mmol/L (136-145) 07/29/25 11:04 Potassium 5.1 mmol/L (3.5-5.1) 07/29/25 11:04 Chloride 110 mmol/L (98-107) H 07/29/25 11:04 Carbon Dioxide 28.8 mmol/L (21.0-31.0) 07/29/25 11:04 Anion Gap 9.3 mEq/L (6.0-15.0) 07/29/25 11:04 BUN 51 mg/dL (7-25) H 07/29/25 11:04 Creatinine 1.84 mg/dL (0.60-1.20) H 07/29/25 11:04 Est GFR (CKD-EPI) 27.569 mL/Min 07/29/25 11:04 Glucose 85 mg/dL (70-100) 07/29/25 11:04 POC Glucose 72 mg/dl 07/29/25 13:39 POC Glucose Comment Glu2: cleaned meter 07/29/25 13:39 Calcium 8.1 mg/dL (8.6-10.3) L 07/29/25 11:04 Troponin I High Sens 13 ng/L (0-15) 07/29/25 11:04 B-Natriuretic Peptide 709.0 pg/mL (5-100) H 07/29/25 11:04 Assessment & Plan Assessment/Plan (1) Acute exacerbation of CHF (congestive heart failure): (2) Longstanding persistent atrial fibrillation: (3) IBS (irritable bowel syndrome): (4) CKD (chronic kidney disease) stage 3, GFR 30-59 ml/min: (5) Diarrhea: Plan The patient has been seen and examined together with medical anthropology director Dr. Alex Betts. I personally obtained the guerra and critical portions of the history and physical exam. I reviewed the chart, the team's documentation, and discussed the patient care with the team. I agree with the team's medical decision makingand have edited the note to reflect my clinical findings and my assessment and plan. MD Bri as above IP vs OBS Justification Based on differential dx, clinical care plan, and risk of adverse events, if untreated, in my clinical judgement this patient requires an acute care setting as: INPATIENT because of an expectation of an over 2 midnight stay. Estimated length of stay (# of days): 2 Documented By: Chasity Castro MD 07/29/25 1520 Signed By: <Electronically signed by Chasity Castro MD> 07/30/25 1049 <Electronically signed by DO DE Betts> 07/29/25 5527 [facility] Work Phone: 1(349) 801-915309-03-2025 NoteWe called and spoke to spouse regarding patients [...] she is ready to proceed. Yamel Pandya, SHEET HANGER-COMMUNITY RESOURCE OFFICER [facility] Evaluation note* Diagnosis Onset Date Resolution Status [...] CHF (congestive heart failure) acute July 20, 2025 1:56pm CKD (chronic kidney disease) , stage IV acute July 20 025 1:56pm Hypertension acute July 1:56pm Type 2 diabetes mellitus wit h diabetic chronic kidney disease acute July 20 025 1:56pm Type 2 diabetes mellitus wit h hyperglycemia, with long-term current use of acute July 20, 2 025 1:56pm Vitreous hemorrhage of right eye acute July 20 025 1:56pm Acute exacerbation of CHF (congestive heart failure) acute mber 2024 12:56pm CKD (chronic kidney disease) stage 3, GFR 30-59 ml/min acute 2024 12:56pm Diarrhea acute July 12:56pm IBS (irritable bowel syndrome) acute July 29, 2025 12:56pm Longstanding persistent atri al fibrillation acute July 29, 2025 12:56pm [facility] Work Phone: 1([phone]) 511-742607-10-2025 Evaluation note* Diagnosis Onset Date Resolution Status [...] persistent atrial fibrillation resolved August 052024 9:32am [facility] Work Phone: [phone]) 592-857306-11-2025 NoteUT Cardiology - [facility] Subjective Joe Call is a 79 y.o. [...] Hordeolum externum (stye) Immunization due Lactose intolerance vehicle check in clerk (current) use of insulin (CMS/HCC) Lumbar degenerative disc disease Lumbar spondylosis Lymph edema Macular degeneration Memory changes Osteoarthritis Secondary hyperparathyroidism Stress incontinence of urine Thrush of mouth and esophagus (CMS/HCC) Urinary incontinence UTI (urinary tract infection) Yeast cystitis CARMELO (acute kidney injury) Tremor Acquired hammer toe of right foot Ataxia Balance disorder CHF (congestive heart failure) (CMS/HCC) Dehydration Diabetic foot ([facility]/HCC) Diabetic peripheral neuropathy associated with type 2 diabetes mellitus ([facility]/HCC) Disability of walking Essential tremor LPRD (laryngopharyngeal reflux disease) Mass of right axilla Paresthesia Throat tightness Type 2 diabetes mellitus with hyperglycemia, with long-term current use of insulin ([facility]/HCC) Venous insufficiency (chronic) (peripheral) Debility Arthrodesis status BMI 40.0-44.9, adult ([facility]) Epigastric pain Urine retention Family History Problem [...] prior cardiac catheterizations. She has history of GA in the past and underwent balloon angioplasty (many years ago, prior to the stent era). 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 In December 2022 she was admitted to the [facility] with decompensated diastolic heart failure, she was treated with diuretic therapy. In February 2023 she was admitted to [facility] with dehydration secondary to acute gastroenteritis. She also had acute kidney injury in that setting. She has history of breast cancer more than 25 years ago s/p mastectomy, chemo and radiation therapy. She has lymphedema in the left arm. In the past she saw a right of way worker for bleeding behind the eye . she [...] April 2024 she was admitted to the [facility] with increasing weakness and altered mental status. She also had acute renal insufficiency. She had UTI secondary to E. coli. She previously was admitted to the [facility] several times due to heart failure. She was readmitted in January 2025 to the [facility] with shortness of breath and [...] Respiratory: Positive for shortness (more content not included)...[facility]* Diagnosis Onset Date Resolution Status Admit Date GERD (gastroesophageal reflu x disease) acute April [...] (congestive heart failure) acute July 20 1:56pm [facility] Work Phone: 1([phone]) 881-369805-13-2025 Evaluation note* Diagnosis Onset Date Resolution Status [...] use of acute June 04, 2025 9:49am [facility] Work Phone: [phone]) 675-233605-13-2025 Hospital Discharge instructionsAmbulatory Orders* Referral to Diabetes Management Time Frame: 03/24/25, Location: None Selected [facility] Work Phone: 1([phone]) 365-402004-29-2025 Evaluation note* Diagnosis Onset Date Resolution Status [...] bowel syndrome) acute April 21, 2025 2:10pm [facility] Work Phone: [phone]) 506-842204-29-2025 Evaluation note* Diagnosis Onset Date Resolution Status [...] 2025 2:10pm IBS (irritable bowel syndrome) acute Aleta 10th, 2025 2:10pm Fall against object acute May 21, 2025 10:52am GERD (gastroesophageal reflu x disease) acute May 21, 2025 10:52am [facility] Work Phone: 1([phone]) [phone] Evaluation note* Diagnosis Onset Date Resolution Status [...] 2025 10:52am Dysuria acute June 02 12:10pm [facility] Work Phone: 1([phone]) 574-924704-21-2025 NoteCardiovascular Medicine [facility] SUBJECTIVE Patient is here today for follow-up after [facility] admission HPI 03/02/2025 Patient is here [...] intake. 01/28/2025 She presented yesterday to the [place] emergency room with worsening shortness of breath [...] better. She is going to see a vision teacher next week. Also she reports symptoms of [...] postchemotherapy and radiation She was recently in [facility] 10/16/2024, she presented with fatigue, lightheadedness [...] tract infection) acute March 24, 2025 1:51pm [facility] Work Phone: 1([phone]) [phone] Evaluation note* Diagnosis Onset Date Resolution Status [...] bowel syndrome) acute April 21, 2025 2:10pm [facility] Work Phone: 1([phone]) 994-350403-19-2025 NoteCardiovascular Medicine [facility] SUBJECTIVE Patient is here today for follow-up after [facility] admission HPI 01/28/2025 She presented yesterday to the [place] emergency room with worsening shortness of breath [...] better. She is going to see a vision teacher next week. Also she reports symptoms of [...] postchemotherapy and radiation She was recently in [facility] 10/16/2024, she presented with fatigue, lightheadedness [...] MD - 01/07/2025 12:08 PM EST prn [id number] Miscellaneous Notes* Telephone Encounter - Christel Chacon MD - 01/07/2025 12:08 PM EST prn * Telephone Encounter - Jeanne Clayton - 01/07/2025 11:26 AM EST Called pt/spoke with spouse/he said she does not want to schedule with Dr Hurd/if she changes hermind she will call us back. documented in this encounterLake Regional Health [id number] Telephone encounter Note* Telephone Encounter - Jeanne Vieiradesiree - 01/07/2025 11:26 AM EST Called pt/spoke with spouse/he said she does not want to schedule with Dr Hurd/if she changes hermind she will call us back. [facility] [id number] Evaluation note* Diagnosis Onset Date Resolution Status [...] of acute March 24, 2025 1 :51pm [facility] Work Phone: [phone]) [phone] Telephone encounter Note* Telephone Encounter - Jeanne Chacon - 01/06/2025 11:21 AM EST Left a message for pt to call Dr Chacon's office back to see if pt is planning on scheduling with Dr Hurd for sleep study. [facility] [id number] Miscellaneous Notes* Telephone Encounter - Jeanne Chacon - 01/06/2025 11:21 AM EST Left a message for pt to call Dr Chacon's office back to see if pt is planning on scheduling with Dr Hurd for sleep study. documented in this [facility]02-14-2025 Evaluation note* Diagnosis Onset Date Resolution Status [...] disease) stage 3, GFR 30-59 ml/min acute Shakila 10th, 2025 8:32am Hyperlipidemia acute February 8:32am Hypertensive [...] x disease) acute March 10, 2025 11:03am [facility] Work Phone: [phone]) 360-521902-14-2025 Evaluation note* Diagnosis Onset Date Resolution Status [...] March 10, 2025 11:03am [facility] Work Phone: [phone] Evaluation note* Diagnosis Onset Date Resolution Status [...] kidney disease acute February 19, 2025 8:32am [facility] Work Phone: [phone] 277-262801-21-2025 NoteCardiovascular Medicine [facility] SUBJECTIVE Patient is here today for [...] postchemotherapy and radiation She was recently in [facility] 10/16/2024, she presented with fatigue, lightheadedness [...] few months. Patient here for follow up [facility]. Her diuretic was switched again back to [...] Oz of fluid a day per the vision teacher. Her most recent discharge on 07/25/24 she [...] 2025 10:00am Diarrhea acute February 09 1:58pm [facility] Work Phone: 1([phone]) [phone] Hospital Discharge instructions Patient Education 11/04/2024 11:01:25 [...] Follow these instructions at home: Medicines Take pwbg-dys-ilqlesj and prescription medicines only as told by [...] provider. Document Revised: 07/20/2021 Document Reviewed: 07/20/2021 [employer] Patient Education 2023 [employer]. Follow Up Care 10/20/2024 13:37:01 With:FRANCHESCA PERAZA, SYDNIE Address: [address] [place] [address] Business (1) When:6 weeks [facility] Afsaneh 12-24-2024 NotePatient Education Obstetrics and Gynecology [...] these instructions at home: Medicines ??? Take areu-twj-fqifpid and prescription medicines only as told by [...] provider. Document Revised: 07/20/2021 Document Reviewed: 07/20/2021 [employer] Patient Education ? 2023 [employer].[facility] 11-03-2024 Evaluation note* Diagnosis Onset Date Resolution Status Admit Date A-fib acute November 03, 2024 11:24am Bradycardia acute October 11:24am CKD (chronic kidney disease) , stage IV acute November 03 024 11:24am Lumbar spondylosis acute Decemb er [...] of acute January 06, 2 025 3:21pm [facility] Work Phone: [phone]) [phone] Evaluation note* Diagnosis Onset Date Resolution Status [...] acute January 14, 2025 10:00am [facility] Work Phone: [phone]) 563-644812-20-2024 NoteCardiovascular Medicine [facility] SUBJECTIVE Patient is here today for hospital follow-up. She was in [facility] with bradycardia. HPI 10/31/2024 Joe Call is a 79 y.o. female here for follow-up. Patient has history of HFpEF, paroxysmal atrial fibrillation, hypertension, diabetes mellitus type 2, chronic kidney disease, remote history of breast cancer status postchemotherapy and radiation She was recently in [facility] 10/16/2024, she presented with fatigue, lightheadedness [...] few months. Patient here for follow up [facility]. Her diuretic was switched again back to [...] Oz of fluid a day per the vision teacher. Her most recent discharge on 07/25/24 she [...] October 162023 3:52pm Obstructive uropathy acute Dece er 2023 3:52pm Type 2 diabetes mellitus wit [...] disease) stage 3, GFR 30-59 ml/min acute [facility] er 2023 1:26pm Hyperlipidemia acute October [...] te December 09, 2024 1:24pm [facility] Work Phone: [phone] NoteCardiovascular Medicine [facility] SUBJECTIVE Chief Complaint Patient presents with [...] few months. Patient here for follow up [facility]. Her diuretic was switched again back to [...] Oz of fluid a day per the vision teacher. Her most recent discharge on 07/25/24 she [...] deficiency Lymphedema of left arm Morbid obesity ([facility]) Obstructive sleep apnea syndrome Paroxysmal supraventricular tachycardia ([facility]) Psoriasis Type 2 diabetes mellitus without complication ([facility]) Mixed hyperlipidemia Diastolic dysfunction Carotid bruit Chronic diarrhea Chronic low back pain Depressive disorder Diabetes mellitus ([facility]) Diabetic neuropathy ([facility]) Exocrine pancreatic insufficiency Gastroesophageal reflux disease Hypertension Hypomagnesemia Hypothyroidism Stage 3 chronic kidney disease ([facility]) Hyperlipidemia Atrial fibrillation ([facility]) Paroxysmal atrial fibrillation ([facility]) Abdominal swelling, generalized Acute on chronic diastolic CHF (congestive heart failure) ([facility]) Anxiety Back pain with history of spinal surgery Cervical disc disease Chalazion of right eye Dyspnea Hordeolum externum (stye) Immunization due Lactose intolerance skilled nursing (current) use of insulin ([facility]) Lumbar degenerative disc disease Lumbar spondylosis Lymph edema Macular degeneration Memory changes Osteoarthritis Secondary hyperparathyroidism ([facility]) Stress incontinence of urine Thrush of mouth and esophagus ([facility]) Urinary incontinence UTI (urinary tract infection) Yeast cystitis CARMELO (acute kidney injury) ([facility]) Tremor Acquired hammer toe of right foot Ataxia Balance disorder CHF (congestive heart failure) ([facility]) Dehydration Diabetic foot ([facility]) Diabetic peripheral neuropathy associated with type 2 diabetes mellitus ([facility]) Disability of walking Essential tremor LPRD (laryngopharyngeal reflux disease) Mass of right axilla Paresthesia Throat tightness Type 2 diabetes mellitus with hyperglycemia, with long-term current use of insulin ([facility]) Venous insufficiency (chronic) (peripheral) Debility Past Medical History: Diagnosis Date Atrial fibrillation ([facility]/HCC) Cancer ([facility]) Carotid artery stenosis Coronary (more content not [...] on chronic diastolic CHF (congestive heart failure) ([facility]) 05/20/2024 CARMELO (acute kidney injury) ([facility]) 05/20/2024 Anxiety 05/20/2024 Aortic valve disorder 08/20/2012 Back pain with history of spinal surgery 05/20/2024 Benign essential hypertension ([facility]) 04/02/2012 Carotid artery stenosis 07/20/2022 Carotid bruit 01/16/2023 Cervical disc disease 05/20/2024 Chalazion of right eye 05/20/2024 Chronic diarrhea 01/16/2023 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 Chronic low back pain 01/16/2023 Coronary atherosclerosis ([facility]) 03/20/2012 Depressive disorder ([facility]) 01/16/2023 Diabetes mellitus ([facility]) 07/03/2024 Diabetic foot ([facility]) 07/03/2024 Diabetic neuropathy (CMS/HCC) 01/16/2023 Diabetic peripheral [...] degeneration 05/20/2024 Memory changes 05/20/2024 Morbid obesity ([facility]) 07/20/2022 Obstructive sleep apnea syndrome 03/20/2012 Paroxysmal atrial fibrillation (CMS/HCC) 03/20/2012 Paroxysmal supraventricular tachycardia (CMS/[facility]) 03/26/2012 Psoriasis (CMS/[facility]) 03/20/2012 Secondary hyperparathyroidism (CMS/HCC) 05/20/2024 Stage 3 chronic kidney disease (HCC) (CMS/[facility]) 01/16/2023 Hypertensive chronic kidney disease with stage 1 through stage 4 chronic kidney disease, or unspecified chronic kidney disease (CMS/HCC) 07/03/2024 Thrush of mouth and esophagus (CMS/HCC) 05/20/2024 Tremor 06/18/2024 Type 2 diabetes mellitus with hyperglycemia, with long-term current use of insulin (CMS/HCC) 07/03/2024 Venous insufficiency (chronic) (peripheral) 07/03/2024 Essential tremor 07/08/2024 Balance disorder 07/08/2024 Ataxia 07/08/2024 Diabetic peripheral neuropathy (CMS/HCC) 07/08/2024 Paresthesia 07/08/2024 Sensory ataxia 07/10/2024 Debility 07/10/2024 Weakness 07/10/2024 Paresthesias 07/10/2024 JED (obstructive sleep apnea) 07/22/2024 LPRD (laryngopharyngeal reflux disease) 07/22/2024 Throat tightness 07/22/2024 Resolved Ambulatory Problems Diagnosis Date Noted Acute pain of left shoulder 07/03/2024 Lactose intolerance 05/20/2024 vehicle check in clerk (current) use of insulin ([facility]) 05/20/2024 Pharyngitis 07/03/2024 CKD (chronic kidney disease), stage IV ([facility]) 07/03/2024 Stress incontinence of urine 05/20/2024 Urinary incontinence 05/20/2024 UTI (urinary tract infection) 05/20/2024 Yeast cystitis 05/20/2024 Past Medical History: Diagnosis Date Anemia Breast cancer ([facility]) Coronary heart disease ([facility]) Diverticulosis GERD (gastroesophageal reflux disease) GA (myocardial infarction) ([facility]) Myocardial infarction ([facility]) Type II diabetes mellitus ([facility]) Past Surgical History: Procedure [...] I will call pt. documented in this encounterLake Regional Health [id number] Telephone encounter Note* Telephone Encounter - Jeanne Chacon - 09/30/2024 11:01 AM EST Pt is scheduled with Dr Chacon 10/01/2024. [facility] [id number] Miscellaneous Notes* Telephone Encounter - Jeanne Chacon - 09/30/2024 11:01 AM EST Pt is scheduled with Dr Chacon 10/01/2024. * Telephone Encounter - Jeanne Chacon - 09/26/2024 8:50 AM EST Tried to call pt to schedule a follow up appt for labs, unable to leave a message. documented in this encounterLake Regional Health [id number] Telephone encounter Note* Telephone Encounter - Jeanne Chacon - 09/26/2024 8:50 AM EST Tried to call pt to schedule a follow up appt for labs, unable to leave a message. [facility] [id number] NoteCardiovascular Medicine [facility] SUBJECTIVE Chief Complaint Patient presents with [...] few months. Patient here for follow up [facility]. Her diuretic was switched again back to [...] Oz of fluid a day per the vision teacher. Her most recent discharge on 07/25/24 she [...] on chronic diastolic CHF (congestive heart failure) ([facility]/HCC) Anxiety Back pain with history of spinal surgery Cervical disc disease Chalazion of right eye Dyspnea Hordeolum externum (stye) Immunization due Lactose intolerance skilled nursing (current) use of insulin ([facility]/HCC) Lumbar degenerative disc disease Lumbar spondylosis Lymph edema Macular degeneration Memory changes Osteoarthritis Secondary hyperparathyroidism ([facility]/HCC) Stress incontinence of urine Thrush of mouth and esophagus ([facility]/HCC) Urinary incontinence UTI (urinary tract infection) Yeast cystitis CARMELO (acute kidney injury) ([facility]/HCC) Tremor Acquired hammer toe of right foot Ataxia Balance disorder CHF (congestive heart failure) ([facility]/HCC) Dehydration Diabetic foot ([facility]) Diabetic peripheral neuropathy associated with type 2 diabetes mellitus ([facility]) Disability of walking Essential tremor LPRD (laryngopharyngeal reflux disease) Mass of right axilla Paresthesia Throat tightness Type 2 diabetes mellitus with hyperglycemia, with long-term current use of insulin ([facility]) Venous insufficiency (chronic) (peripheral) Debility Past Medical History: Diagnosis Date Atrial fibrillation ([facility]/HCC) Cancer ([facility]) Carotid artery stenosis Coronary artery disease Diabetes mellitus ([facility]) GERD (gastroesophageal reflux disease) Hypertension Sleep apnea [...] systems reviewed and are negative.[facility] 08-[facility]-2024 NotePatient here for follow up [facility]. Her diuretic was switched again back to [...] and are negative.[facility] 08-20-2024 NoteCardiovascular Medicine [facility] SUBJECTIVE Chief Complaint Patient presents with [...] few months. Patient here for follow up [facility]. Her diuretic was switched again back to [...] Oz of fluid a day per the vision teacher. Her most recent discharge on 07/25/24 she [...] deficiency Lymphedema of left arm Morbid obesity ([facility]) Obstructive sleep apnea syndrome Paroxysmal supraventricular tachycardia ([facility]) Psoriasis Type 2 diabetes mellitus without complication ([facility]) Mixed hyperlipidemia Diastolic dysfunction Carotid bruit Chronic diarrhea Chronic low back pain Depressive disorder Diabetes mellitus ([facility]) Diabetic neuropathy ([facility]) Exocrine pancreatic insufficiency Gastroesophageal reflux disease Hypertension Hypomagnesemia Hypothyroidism Stage 3 chronic kidney disease ([facility]) Hyperlipidemia Atrial fibrillation ([facility]) Paroxysmal atrial fibrillation ([facility]) Abdominal swelling, generalized Acute on chronic diastolic CHF (congestive heart failure) ([facility]) Anxiety Back pain with history of spinal surgery Cervical disc disease Chalazion of right eye Dyspnea Hordeolum externum (stye) Immunization due Lactose intolerance skilled nursing (current) use of insulin ([facility]) Lumbar degenerative disc disease Lumbar spondylosis Lymph edema Macular degeneration Memory changes Osteoarthritis Secondary hyperparathyroidism ([facility]) Stress incontinence of urine Thrush of mouth and esophagus ([facility]) Urinary incontinence UTI (urinary tract infection) Yeast cystitis CARMELO (acute kidney injury) ([facility]) Tremor Acquired hammer toe of right foot Ataxia Balance disorder CHF (congestive heart failure) ([facility]) Dehydration Diabetic foot ([facility]) Diabetic peripheral neuropathy associated with type 2 diabetes mellitus ([facility]) Disability of walking Essential tremor LPRD (laryngopharyngeal reflux disease) Mass of right axilla Paresthesia Throat tightness Type 2 diabetes mellitus with hyperglycemia, with long-term current use of insulin ([facility]) Venous insufficiency (chronic) (peripheral) Debility Past Medical History: Diagnosis Date Atrial fibrillation ([facility]/H[facility]) Cancer ([facility]) Carotid artery stenosis Coronary artery disease Diabetes mellitus ([facility]) GERD (gastroesophageal reflux disease) Hypertension Sleep apnea [...] other systems reviewed (more content not included)...[facility] History of Present illness Narrative* Christel [...] on chronic diastolic CHF (congestive heart failure) ([facility]) 05/20/2024 CARMELO (acute kidney injury) ([facility]) 05/20/2024 Anxiety 05/20/2024 Aortic valve disorder 08/20/2012 Back pain with history of spinal surgery 05/20/2024 Benign essential hypertension ([facility]) 04/02/2012 Carotid artery stenosis 07/20/2022 Carotid bruit 01/16/2023 Cervical disc disease 05/20/2024 Chalazion of right eye 05/20/2024 Chronic diarrhea 01/16/2023 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 Chronic low back pain 01/16/2023 Coronary atherosclerosis ([facility]) 03/20/2012 Depressive disorder (CMS/HCC) 01/16/2023 Diabetes mellitus (CMS/HCC) 07/03/2024 Diabetic foot ([facility]) 07/03/2024 Diabetic neuropathy (CMS/[facility]) 01/16/2023 Diabetic peripheral neuropathy associated with type 2 diabetes mellitus (CMS/HCC) 07/03/2024 Diastolic dysfunction 09/05/2022 Disability of walking 07/03/2024 Diverticulitis of colon 03/20/2012 Dyspnea 05/20/2024 Exocrine pancreatic insufficiency (CMS/HCC) 01/16/2023 Gastroesophageal reflux disease 01/16/2023 History of malignant neoplasm of breast 03/20/2012 Hordeolum externum (stye) 05/20/2024 Hyperlipidemia ([facility]) 07/03/2024 Hypertension (CMS/HCC) 01/16/2023 Near syncope 07/03/2024 Hypomagnesemia 01/16/2023 Hypothyroidism (CMS/HCC) 01/16/2023 Lumbar degenerative disc disease 05/20/2024 Lumbar spondylosis 05/20/2024 Lymph edema 05/20/2024 Lymphedema of left arm 03/20/2012 Macular degeneration 05/20/2024 Memory changes 05/20/2024 Morbid obesity (CMS/HCC) 07/20/2022 Obstructive sleep apnea syndrome 03/20/2012 Paroxysmal atrial fibrillation ([facility]) 03/20/2012 Paroxysmal supraventricular tachycardia ([facility]) 03/26/2012 Psoriasis (CMS/[facility]) 03/20/2012 Secondary hyperparathyroidism (CMS/HCC) 05/20/2024 Stage 3 chronic kidney disease (HCC) ([facility]) 01/16/2023 Hypertensive chronic kidney disease with stage 1 through stage 4 chronic kidney disease, or unspecified chronic kidney disease (CMS/HCC) 07/03/2024 Thrush of mouth and esophagus (CMS/HCC) 05/20/2024 Tremor 06/18/2024 Type 2 diabetes mellitus with hyperglycemia, with long-term current use of insulin (CMS/HCC) 07/03/2024 Venous insufficiency (chronic) (peripheral) 07/03/2024 Essential tremor 07/08/2024 Balance disorder 07/08/2024 Ataxia 07/08/2024 Diabetic peripheral neuropathy ([facility]/HCC) 07/08/2024 Paresthesia 07/08/2024 Sensory ataxia 07/10/2024 Debility 07/10/2024 Weakness 07/10/2024 Paresthesias 07/10/2024 Resolved Ambulatory Problems Diagnosis Date Noted Acute pain of left shoulder 07/03/2024 Lactose intolerance 05/20/2024 vehicle check in clerk (current) use of insulin ([facility]) 05/20/2024 Pharyngitis 07/03/2024 CKD (chronic kidney disease), stage IV ([facility]) 07/03/2024 Stress incontinence of urine 05/20/2024 Urinary incontinence 05/20/2024 UTI (urinary tract infection) 05/20/2024 Yeast cystitis 05/20/2024 Past Medical History: Diagnosis Date Anemia Breast cancer ([facility]) Coronary heart disease ([facility]) Diverticulosis GERD (gastroesophageal reflux disease) GA (myocardial infarction) ([facility]) Myocardial infarction ([facility]) Type II diabetes mellitus ([facility]) Past Surgical History: Procedure [...] contribute to throat fullness documented in this encounterLake [facility] [id number] History of Present illness Narrative* Lizett Jacinto, TICKET MAKER - 07/10/2024 1:40 PM EDT Images from [...] HOSP F/U after being seen IP at [facility] for worsening SOB along with lower extremity edema and lower abdominal wall edema after being taken off of Lasix. Was discharged with instructions to f/u with PCP, Cardiologies, [facility]. States that she was dx with CHF [...] of left shoulder 07/03/2024 Anemia Breast cancer ([facility]) CKD (chronic kidney disease), stage IV (CMS/HCC) 07/03/2024 Coronary heart disease ([facility]/HCC) Diverticulosis GERD (gastroesophageal reflux disease) Lactose intolerance 05/20/2024 vehicle check in clerk (current) use of insulin (CMS/HCC) 05/20/2024 GA (myocardial infarction) (CMS/HCC) Myocardial infarction (CMS/HCC) Pharyngitis 07/03/2024 Type II diabetes mellitus ([facility]/HCC) Urinary incontinence 05/20/2024 Yeast cystitis 05/20/2024 Past [...] as we have not seen her in [facility]. She never followed up. [...] would need to be done through the african studies professor. The patient does have benzodiazepines which are [...] modifying techniques such as weighted silverware, utensil joinery patternmaker and/or cups with lids on them. . [...] and the medication options Weighted silverware Utensil joinery patternmaker to aid with writing and putting on [...] to clinic: 2 months documented in this encounterLake Regional Health [id number] Hospital Discharge instructionsAmbulatory Orders* Referral to Urology Time Frame: 02/15/24, Location: None [facility] Work Phone: [phone]) 719-164901-08-2024 Evaluation note* Encounter Date Diagnosis Assessment Notes Treatment Notes Treatment Clinical Notes Nov, Lumbar degenerative disc disease (ICD-10 - M51.36) [facility] Other 12-12-2023 Evaluation note* Encounter Date Diagnosis [...] will check vitamin B12 level next visit [facility] Other 12-11-2023 Evaluation note* Encounter Date Diagnosis Assessment Notes Treatment Notes Treatment Clinical Notes Oct, Lumbar degenerative disc disease (ICD-10 - M51.36) [facility] Other 12-07-2023 Evaluation note* Encounter Date Diagnosis Assessment Notes Treatment Notes Treatment Clinical Notes Oct, Bronchitis (ICD-10 - J40) Finish meds. No acute need for antibiotic at this time Oct, Diabetes mellitus with chronic kidney disease (ICD-10 - E11.22) Due for labs, followup w Dr. Mcconnell Oct, Lumbar degenerative disc disease (ICD-10 - M51.36) Pt will contact neurosurgery. [facility] Other 10-27-2023 Evaluation note* Encounter Date Diagnosis Assessment Notes Treatment Notes Treatment Clinical Notes Aug, Chronic kidney disease, stage 4 (severe) (ICD-10 - N18.4) [facility] Other 10-24-2023 Evaluation note* Encounter Date Diagnosis [...] (ICD-10 - M51.36) Pt requests referral to [place] [facility]. Reviewed OAR[facility] report. Aug, Stress incontinence of urine (ICD-10 - N39.3) R/o infection. Discussed could be related to her diabetes med as well. [facility] Other 10-12-2023 Evaluation note* Encounter Date Diagnosis Assessment Notes Treatment Notes Treatment Clinical Notes Aug, Lumbar degenerative disc disease (ICD-10 - M51.36) [facility] Other 09-11-2023 Evaluation note* Encounter Date Diagnosis Assessment Notes Treatment Notes Treatment Clinical Notes Jul, Lumbar degenerative disc disease (ICD-10 - M51.36) [facility] Other 09-05-2023 Evaluation note* Encounter Date Diagnosis [...] refill. Oarrs reviewed. No med changes needed. [facility] Other 07-05-2023 Evaluation note* Encounter Date Diagnosis Assessment Notes Treatment Notes Treatment Clinical Notes May, C. difficile colitis (ICD-10 - A04.72) [facility] Other 06-19-2023 Evaluation note* Encounter Date Diagnosis Assessment Notes Treatment Notes Treatment Clinical Notes Apr, Skin candidiasis (ICD-10 - B37.2) Discussed this is related to her hyperglycemia. Will treat w nystatin, but needs improvement in diet and glucose readings. Apr, Type 2 diabetes mellitus with hyperglycemia, unspecified whether food preparation kitchen aide insulin use (ICD-10 - E11.65) Pt agrees to see Dr Mcconnell again. Recently sent to ER for glucose of 608. Apr, Tremor of both hands (ICD-10 - R25.1) Referral to Dr. Lopez Apr, Memory changes (ICD- 10 - R41.3) Referral to Dr. Lopez Apr, Gastroesophageal reflux disease without esophagitis (ICD-10 - K21.9) Improved on carafate w PPI. [facility] Other 06-01-2023 Evaluation note* Encounter Date Diagnosis Assessment Notes Treatment Notes Treatment Clinical Notes Apr, Gastroesophageal ref lux disease without esophagitis (ICD-10 - K21.9) [facility] Other 04-28-2023 Evaluation note* Encounter Date Diagnosis [...] (current) use of insulin (ICD-10 - Z79.4) [facility] Other 04-26-2023 Evaluation note* Encounter Date Diagnosis Assessment Notes Treatment Notes Treatment Clinical Notes Feb, C. difficile colitis (ICD-10 - A04.72) [facility] Other 04-17-2023 Evaluation note* Encounter Date Diagnosis Assessment Notes Treatment Notes Treatment Clinical Notes Feb, Gastroesophageal ref lux disease without esophagitis (ICD-10 - K21.9) [facility] Other 04-14-2023 Evaluation note* Encounter Date Diagnosis Assessment Notes Treatment Notes Treatment Clinical Notes Feb, Chronic diarrhea (ICD-10 - K52.9) [facility] Other 04-11-2023 Evaluation note* Encounter Date Diagnosis [...] it really overall has not been helpful. [facility] Other 01-13-2023 Evaluation note* Encounter Date Diagnosis Assessment Notes Treatment Notes Treatment Clinical Notes Nov, Type 2 diabetes mellitus with hyperglycemia, unspecified whether fdc insulin use (ICD-10 - E11.65) [facility] Other 10-14-2021 Evaluation note* Encounter Date Diagnosis [...] training 6. Follow up in 3 months. [facility] Other Evaluation + Plan note No data available for this section General Surgery [place] Evaluation + Plan note Future Appointments Appointment Date:11/06/2024 11:00:00 AM Scheduled Provider: Location:[facility] Appointment Type:URO Nurse Visit Appointment Date:12/08/2024 11:40:00 AM Scheduled Provider:FRANCHESCA PERAZA PA-C Location:[facility] Appointment Type:URO Office Visit Diagnostic Tests Pending * Renal Function Panel 11/04/24 [facility] evaluation + Plan note Future Appointments Appointment Date:12/08/2024 11:40:00 AM Scheduled Provider:FRANCHESCA PERAZA PA-C Location:[facility] Appointment Type:URO Office Visit Appointment Date:12/18/2024 11:20:00 AM Scheduled Provider:FRANCHESCA PERAZA PA-C Location:[facility] Appointment Type:URO Complex Office Visit [facility] evaljgfqme + Plan note Future Appointments Appointment Date:12/18/2024 11:20:00 AM Scheduled Provider:FRANCHESCA PERAZA PA-C Location:[facility] Appointment Type:URO Complex Office Visit [facility] evaluation noteNo InformationNoCamp[employer] Other evaluation noteNoCampus Direct Other evaluation noteNoCamp[employer] Direct Other evaluation note* Diagnosis Onset Date Resolution Status Chalazion of right eye acute Immunization due acute Urinary incontinence acute [facility] Work Phone: evaluation note* Diagnosis Onset Date Resolution Status Chalazion of right eye acute Immunization due acute Urinary incontinence acute Diabetes mellitus with hyperglycemia acute Hypertension acute Hypothyroidism acute Lumbar spondylosis acute Secondary hyperparathyroidism acute [facility] Work Phone: evaluation note* Diagnosis Onset [...] mouth and esophagus acute [facility] Work Phone: evaluation note* Diagnosis Onset [...] (urinary tract infection) acute [facility] Work Phone: Evaluation note* Diagnosis Onset [...] acute Thrush of mouth and esophagus acute [id number] acute Secondary hyperparathyroidism acute [facility] Work Phone: evaluation note* Diagnosis Onset [...] acute Thrush of mouth and esophagus acute [id number] acute CKD (chronic kidney disease) stage 3, GFR 30-59 ml/min acute Hyperlipidemia acute [id number] acute Secondary hyperparathyroidism acute Type 2 diabetes mellitus wit h diabetic chronic kidney disease acute Tremor acute [facility] Work Phone: Evaluation note* Diagnosis Onset [...] acute Thrush of mouth and esophagus acute [id number] acute CKD (chronic kidney disease) stage 3, GFR 30-59 ml/min acute Hyperlipidemia acute [id number] acute Secondary hyperparathyroidism acute Type 2 diabetes mellitus wit h diabetic chronic kidney disease acute Acute on chronic diastolic C HF (congestive heart failure) acute [id number] acute Tremor acute [id number] acute [facility] Work Phone: Evaluation note* Diagnosis Onset [...] acute Thrush of mouth and esophagus acute [id number] acute CKD (chronic kidney disease) stage 3, GFR 30-59 ml/min acute Hyperlipidemia acute [id number] acute Secondary hyperparathyroidism acute Type 2 diabetes mellitus wit h diabetic chronic kidney disease acute Acute on chronic diastolic C HF (congestive heart failure) acute [id number] acute Tremor acute [id number] acute Mass of right axilla acute [facility] Work Phone: Evaluation note* Diagnosis Onset [...] acute Thrush of mouth and esophagus acute [id number] acute CKD (chronic kidney disease) stage 3, GFR 30-59 ml/min acute Hyperlipidemia acute [id number] acute Secondary hyperparathyroidism acute Type 2 diabetes mellitus wit h diabetic chronic kidney disease acute Acute on chronic diastolic C HF (congestive heart failure) acute [id number] acute Tremor acute [id number] acute Mass of right axilla acute CHF (congestive heart failure) acute Dehydration acute [id number] acute [id number] acute [facility] Work Phone: Evaluation note* Diagnosis Onset [...] acute Thrush of mouth and esophagus acute [id number] acute CKD (chronic kidney disease) stage 3, GFR 30-59 ml/min acute Hyperlipidemia acute [id number] acute Secondary hyperparathyroidism acute Type 2 diabetes mellitus wit h diabetic chronic kidney disease acute Acute on chronic diastolic C HF (congestive heart failure) acute [id number] acute Tremor acute [id number] acute Back pain with history of spinal surgery acute Cervical disc disease acute CKD (chronic kidney disease), stage IV acute Mass of right axilla acute CHF (congestive heart failure) acute Dehydration acute [id number] acute [id number] acute Dysuria acute [facility] Work Phone: Evaluation note* Diagnosis Onset Date Resolution Status Lumbar degenerative disc disease acute Thrush of mouth and esophagus acute [id number] acute CKD (chronic kidney disease) stage 3, GFR 30-59 ml/min acute Hyperlipidemia acute [id number] acute Secondary hyperparathyroidism acute Type 2 diabetes mellitus wit h diabetic chronic kidney disease acute Acute on chronic diastolic C HF (congestive heart failure) acute [id number] acute Tremor acute [id number] acute Back pain with history of spinal surgery acute Cervical disc disease acute CKD (chronic kidney disease), stage IV acute Mass of right axilla acute CHF (congestive heart failure) acute Dehydration acute [id number] acute [id number] acute Dysuria acute [facility] Work Phone: Evaluation note* Diagnosis JED (obstructive sleep apnea)- Primary Obstructive sleep apnea (adult) (pediatric) Hypothyroidism (acquired) ([facility]) Unspecified hypothyroidism documented in this encounter [facility] HealthcareEvaluation note* Diagnosis Essential tremor- Primary Diabetic polyneuropathy associated with type 2 diabetes mellitus ([facility]) Balance disorder Sensory ataxia Lack of coordination Debility Unspecified debility Weakness Other malaise and fatigue Paresthesias Disturbance of skin sensation documented in this encounter [facility] HealthcareEvaluation note* Diagnosis JED (obstructive sleep apnea)- Primary Obstructive sleep apnea (adult) (pediatric) LPRD (laryngopharyngeal reflux disease) Acute laryngitis, without mention of obstruction Throat tightness documented in this encounter [facility] HealthcareHistory general Narrative - Reported* Type [...] History COLONOSCOPY 04/10/2019 Hospitalization History See above [facility] Other Hisizsm general Narrative - Reported* Type Description Date [...] History COLONOSCOPY 04/10/2019 Hospitalization History See above [facility] Other History [facility] - [facility] [employer] Other Hiskpnd general Narrative - [facility] [employer] Other History general Narrative - Reported* Type [...] GERD 2022 Hospitalization History DIABETES ISSUES 2022 [facility] [employer] Other Hospital Discharge instructions No data available for this section General Surgery [place] Hospital Discharge instructionsAmbulatory Orders* Referral to Neurology Time Frame: 06/16/24, Location: None [facility] Work Phone: Hospital Discharge instructionsAmbulatory Orders* Referral to ENT Time Frame: 06/25/24, Location: None [facility] Work Phone: Hospital Discharge instructions Additional Instructions Follow-up with your primary care doctor as you might need medication adjustments to manage your high blood sugar Return to ED if develop worsening symptoms or [facility] Work Phone: Hospital Discharge instructionsAmbulatory Orders* Initiate Home Health Time Frame: 08/01/25, Location: Determined By Patient Additional Instructions Continue oxygen as per chronic orders Monitor glucose levels as before Home health to manage: -RN/PT/OT to eval and treat -Monitor VS per protocol -Fall precautions -Perform cardiovascular assessments -Assist with medication management and education -Provide CHF education -Monitor intake and output -Daily weight -Continue oxygen as per chronic orders -Monitor glucose levels as before -Wound care BID: *abdomen, groin and gluteal cleft- redness, clean with theraworx protect foam, apply zinc oxide to gluteal cleft only Please follow-up with your african studies professor within few weeks for further treatment of your blood pressure, and congestive heart failureAv[facility] Work Phone: Progress note No data available for this section General Surgery [place] Reason for referral (narrative)No reason for referral information availableMer[facility] Work Phone: Rexmny for visit Narrative* Consultation (Routine) - Closed Specialty Diagnoses / Procedures Referred By Contac t Referred To Contact Neurology Diagnoses Tremor, unspecified Procedures AR OFFICE/OUTPATIENT NEW LOW MDM 30 MINUTES Shantel Steven MD [address] [place] [address] Gio Choe MD [address] [place] [address] Referral ID Status Reason Start Date Expiration Date V isits Requested Visits Authorized [id number] Closed Consult and Treat 06/27/2024 12/24/2024 1 1 [facility] Healthcare Summary Purpose Family History Relationship Condition [...] Time Advance Directives No June 10 9:06am Advance Directive Response Recorded Date/ Time Advance Directives No July 2:54pm Reason for Referral Reason *Waiting for appt Labs last week. Sees endocrinology for diabetes. Renal function decreased. Diagnosis 1 Chronic kidney disea se, stage 4 (severe) (N18.4) Referral Organization [facility] Dick or Bro helene Referring Provider First Name Shantel Referring Provider Last Name Tenisha Referring Provider Specialty [facility] Referred Organization [facility] Nephrology Referred Provider Cherie Rapp Referred Address [address] [place], [place],[address] Referred Provider Specialty Nephrology Referral Priority Routine General Notes Mariela Kingston 11:35:41 AM >received today, sent P2P Reason *FU 09/13 lumbar p ain Diagnosis 1 Lumbar degenerative disc disease (M51.36) Referral Organization [facility] helene Referring Provider First Name Shantel Referring Provider Last Name Tenisha Referring Provider Specialty [facility] Referred Organization [facility] Referred Provider Terell Soliz Referred Address [address] [place], [place],[address] Referred Provider Specialty Pain Medicin e Referral Priority Routine General Notes Mariela Kingston 03:09:25 PM >received today, waiting for notes to be locked Mariela Kingston 09/06/2023 10:08:29 AM >notes locked, referral faxed Clinical Notes F: [id number] Reason Poorly controlled di abetes Diagnosis 1 Type 2 diabetes maranda itus with hyperglycemia, unspecified whether food preparation kitchen aide insulin use (E11.65) Referral Organization [facility] helene Referring Provider First Name Shantel Referring Provider Last Name Tenisha Referring Provider Specialty [facility] [employer] Referred Organization Unknown Facility Referred Provider Joshua Mcconnell Referred Provider Specialty Internal Med icine Referral Priority Routine Reason tremor and memory lo ss - family history of dementia Diagnosis 1 Tremor of both hands (R25.1) Referral Organization [facility] [employer] helene Referring Provider First Name Shantel Referring Provider Last Name Tenisha Referring Provider Specialty [facility] [employer] Referred Organization Unknown Facility Referred Provider Emery [...] disc disease Thrush of mouth and esophagus [id number] Secondary hyperparathyroidism Chief Complaint medication review Amb [...] disc disease Thrush of mouth and esophagus [id number] CKD (chronic kidney disease) stage 3, GFR 30-59 ml/min Hyperlipidemia [id number] Secondary hyperparathyroidism Type 2 diabetes mellitus with [...] disc disease Thrush of mouth and esophagus [id number] CKD (chronic kidney disease) stage 3, GFR 30-59 ml/min Hyperlipidemia [id number] 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 Acute on chronic diastolic CHF (congestive heart failure) [id number] Tremor [id number] Chief Complaint difficulty swallowin g Amb Documentation [...] disc disease Thrush of mouth and esophagus [id number] CKD (chronic kidney disease) stage 3, GFR 30-59 ml/min Hyperlipidemia [id number] 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 Acute on chronic diastolic CHF (congestive heart failure) [id number] Tremor [id number] Mass of right axilla Chief Complaint difficulty [...] disc disease Thrush of mouth and esophagus [id number] CKD (chronic kidney disease) stage 3, GFR 30-59 ml/min Hyperlipidemia [id number] 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 Acute on chronic diastolic CHF (congestive heart failure) [id number] Tremor [id number] Mass of right axilla Chief Complaint difficulty [...] disc disease Thrush of mouth and esophagus [id number] CKD (chronic kidney disease) stage 3, GFR 30-59 ml/min Hyperlipidemia [id number] 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 Acute on chronic diastolic CHF (congestive heart failure) [id number] Tremor [id number] Mass of right axilla CHF (congestive heart failure) Dehydration [id number] Chief Complaint difficulty swallowin g Amb Documentation [...] disc disease Thrush of mouth and esophagus [id number] CKD (chronic kidney disease) stage 3, GFR 30-59 ml/min Hyperlipidemia [id number] 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 Acute on chronic diastolic CHF (congestive heart failure) [id number] Tremor [id number] Back pain with history of spinal surgery Cervical disc disease CKD (chronic kidney disease), stage IV Mass of right axilla CHF (congestive heart failure) Dehydration [id number] Dysuria Chief Complaint throat problem SOB RENAL CKD 4 [facility]H follow up 3 month f/u Kidney injury, high BP R30.0 UA Amb Documentation TBH f/u:Pulmonary Adema Reason for Visit Lumbar degenerative disc disease Thrush of mouth and esophagus [id number] CKD (chronic kidney disease) stage 3, GFR 30-59 ml/min Hyperlipidemia [id number] 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 Acute on chronic diastolic CHF (congestive heart failure) [id number] Tremor [id number] Back pain with history of spinal surgery Cervical disc disease CKD (chronic kidney disease), stage IV Mass of right axilla CHF (congestive heart failure) Dehydration [id number] Dysuria Chief Complaint Admit Date gen weakness [...] mellitus wit h diabetic chronic kidney disease [place], 2024 1:26pm Abdominal swelling, generalized December 09, [...] [facility] disease[facility] GERD (gastroesophageal reflux disease) F [facility] 2024 3:21pm Lumbar degenerative disc disease [...] 025 12:52pm Gastroesophageal reflux disease (GERD) F [facility] 2024 3:21pm [facility] ER:Abd Pain/Chronic Pain January 14, 2025 10:00am [...] CKD (chronic kidney disease), stage IV F [facility] 2024 3:21pm GERD (gastroesophageal reflux disease) F [facility] 2024 3:21pm Lumbar degenerative disc disease Febru[place] 2024 3:21pm Type 2 diabetes mellitus wit h hyperglycemia, with long-term current use of January 06, 2025 3:21pm Acute on chronic diastolic CHF (congesti ve heart failure) January 14, 2025 10:00am C. difficile diarrhea January 14, 2025 10 :00am GERD (gastroesophageal reflux disease) [facility] 2024 10:00am Type 2 diabetes mellitus wit h hyperglycemia, with long-term current use of January 14, 2025 10:00am Chief Complaint Admit Date RENAL HOSP F/U November 11, 2024 1:26pm Amb Documentation December 08, 2024 2 :07pm 3 month f/u-HIGH RISK December 09, 2024 1:24pm Gerd/Diabetes-HIGH RISK December 26, 2 025 12:52pm Gastroesophageal reflux disease (GERD) [facility] 3:21pm [facility] ER:Abd Pain/Chronic Pain [...] 2024 12:52pm GERD (gastroesophageal reflux disease) F [facility] 2024 12:52pm Lumbar degenerative disc disease Feb[place] y 2024 12:52pm Seborrhea capitis in adult December 12:52pm Type 2 diabetes mellitus wit h diabetic chronic kidney disease December 26, 2024 12:52pm Acute on chronic diastolic CHF (congesti ve heart failure) January 06, 2025 3:21pm CKD (chronic kidney disease), stage IV F [facility] 3:21pm GERD (gastroesophageal reflux disease) F [facility] 2024 3:21pm Lumbar degenerative disc disease [...] 025 12:52pm Gastroesophageal reflux disease (GERD) F [facility] 2024 3:21pm [facility] ER:Abd Pain/Chronic Pain [...] 2024 12:52pm GERD (gastroesophageal reflux disease) F [facility] 2024 12:52pm Lumbar degenerative disc disease uar y 2024 12:52pm Seborrhea capitis in adult December 12:52pm Type 2 diabetes mellitus wit h diabetic chronic kidney disease December 26, 2024 12:52pm Acute on chronic diastolic CHF (congesti ve heart failure) January 06, 2025 3:21pm CKD (chronic kidney disease), stage IV F [facility] 2024 3:21pm GERD (gastroesophageal reflux disease) F [facility] 2024 3:21pm Lumbar degenerative disc disease uar 2024 3:21pm Type 2 diabetes mellitus wit h hyperglycemia, with long-term current use of January 06, 2025 3:21pm Acute on chronic diastolic CHF (congesti ve heart failure) January 14, 2025 10:00am C. difficile diarrhea January 14, 2025 10 :00am GERD (gastroesophageal reflux disease) [facility] 2024 10:00am Type 2 diabetes mellitus wit [...] Complaint Admit Date Gerd/Diabetes-HIGH RISK December 26 2 025 12:52pm [...] CKD (chronic kidney disease), stage IV F [facility] 2024 3:21pm GERD (gastroesophageal reflux disease) F [facility] 2024 3:21pm Lumbar degenerative disc disease Febru[facility] y 2024 3:21pm Type 2 diabetes mellitus wit h hyperglycemia, with long-term current use of January 06, 2025 3:21pm Acute on chronic diastolic CHF (congesti ve heart failure) January 14, 2025 10:00am C. difficile diarrhea January 14, 2025 10 :00am GERD (gastroesophageal reflux disease) [facility] 2024 10:00am Type 2 diabetes mellitus wit h hyperglycemia, with long-term current use of January 14, 2025 10:00am Acute on chronic diastolic CHF (congesti ve heart failure) February 09, 2025 1:58pm CKD (chronic kidney disease), stage IV [facility] 2024 1:58pm Diarrhea February 09, 2025 1:5 8pm GERD (gastroesophageal reflux disease) [facility] 2024 1:58pm Lumbar degenerative disc disease January [...] 025 12:52pm Gastroesophageal reflux disease (GERD) F [facility] 2024 3:21pm TB ER:Abd Pain/Chronic Pain [...] 2024 12:52pm GERD (gastroesophageal reflux disease) F [facility] 2024 12:52pm Lumbar degenerative disc disease Febru[place] y 2024 12:52pm Seborrhea capitis in adult December 12:52pm Type 2 diabetes mellitus wit h diabetic chronic kidney disease December 26, 2024 12:52pm Acute on chronic diastolic CHF (congesti ve heart failure) January 06, 2025 3:21pm CKD (chronic kidney disease), stage IV F [facility] 2024 3:21pm GERD (gastroesophageal reflux disease) F [facility] 2024 3:21pm Lumbar degenerative disc disease Februar 2024 3:21pm Type 2 diabetes mellitus wit h hyperglycemia, with long-term current use of January 06, 2025 3:21pm Acute on chronic diastolic CHF (congesti ve heart failure) January 14, 2025 10:00am C. difficile diarrhea January 14, 2025 10 :00am GERD (gastroesophageal reflux disease) [facility] 2024 10:00am Type 2 diabetes mellitus wit h hyperglycemia, with long-term current use of January 14, 2025 10:00am Acute on chronic diastolic CHF (congesti ve heart failure) February 09, 2025 1:58pm CKD (chronic kidney disease), stage IV [facility] 2024 1:58pm Diarrhea February 09, 2025 1:5 8pm GERD (gastroesophageal reflux disease) [facility] 2024 1:58pm Lumbar degenerative disc disease January [...] Admit Date Gastroesophageal reflux disease (GERD) F [facility] 2024 3:21pm [facility] ER:Abd Pain/Chronic Pain [...] CKD (chronic kidney disease), stage IV F [facility] 2024 3:21pm GERD (gastroesophageal reflux disease) F [facility] 2024 3:21pm Lumbar degenerative disc disease 2024 3:21pm Type 2 diabetes mellitus wit h hyperglycemia, with long-term current use of January 06, 2025 3:21pm Acute on chronic diastolic CHF (congesti ve heart failure) January 14, 2025 10:00am C. difficile diarrhea January 14, 2025 10 :00am GERD (gastroesophageal reflux disease) [facility] 2024 10:00am Type 2 diabetes mellitus wit h hyperglycemia, with long-term current use of January 14, 2025 10:00am Acute on chronic diastolic CHF (congesti ve heart failure) February 09, 2025 1:58pm CKD (chronic kidney disease), stage IV [facility] 2024 1:58pm Diarrhea February 09, 2025 1:5 8pm GERD (gastroesophageal reflux disease) [facility] 2024 1:58pm Lumbar degenerative disc disease January [...] CKD (chronic kidney disease), stage IV [facility] 2024 1:58pm Diarrhea February 09, 2025 1:5 8pm GERD (gastroesophageal reflux disease) [facility] 2024 1:58pm Lumbar degenerative disc disease January [...] (congestive heart failure) July 20, 2025 1:56pm Chief Complaint Admit Date Amb Documentation May 13, 2025 9:25a m TBH; fall; discuss eczema May 21 10:52am UA, confusion, hallucination June 02, 2025 12:10pm R30.0 June 02, 2025 12:3 0pm [place] [facility] F/U June 04, 2025 9:49 am Amb Documentation June 10, 2025 9:18 am CHF CKD June 15, 2025 2:0 0pm Amb Documentation June 22, 2025 9: 34am Amb Documentation July 01, 2025 11 :13am Amb Documentation July 01, 2025 1: 34pm Hospital f/u-HIGH RISK July 20 1:56pm Amb Documentation July 24, 2025 8:06am sob July 29, 2025 12:56pm Reason for Visit Admit Date Fall against [...] atrial fibrillat ion July 29, 2025 12:56pm Chief Complaint Admit Date Amb Documentation May 13, 2025 9:25a m [...] week follow up August 05, 2025 9:32am Chief Complaint Admit Date TBH; fall; discuss [...] atrial fibrillat ion August 05, 2025 9:32am Additional Source Comments INFORMATION SOURCE (unrecogn ized section and content) DATE CREATED AUTHOR 05/10/2018 [facility] DATE CREATED AUTHOR AUTHOR'S ORGANIZ ATION 03/10/2023 [facility] DATE CREATED AUTHOR AUTHOR'S ORGANIZ ATION 10/04/2024 [facility] EP[facility] DATE CREATED AUTHOR AUTHOR'S ORGANIZ ATION 12/21/2024 [facility] DATE CREATED AUTHOR AUTHOR'S ORGANIZ ATION 07/17/2025 [facility] DATE CREATED AUTHOR AUTHOR'S ORGANIZ ATION 08/17/2025 [facility] [...] 2025 End: June 02, 2025 Team Status: Inactive Member Role [...] July 20, 2025 End: July 20, 2025 Team Status: Active Member Role Status Dates Shantel Steven MD Primary Care Provider Active Start: July 22, 2025 Shantel Steven MD Attending Provider Active St art: July 22, 2025 Team Status: Active Member Role Status Dates Monica Stewart MD Attending Provider Active Sta rt: July 23, 2025 Shantel Steven MD Primary Care Provider Active Start: July 23, 2025 Team Status: Active Member Role Status Dates Shantel Steven MD Primary Care Provider Active Start: July 24, 2025 Wandy Alvarez CMA Attending Provider Active Start: July 24, 2025 Team Status: Inactive Member Role Status Dates Shantel Steven MD Primary Care Provider Active Start: July 29, 2025 End: August 01, 2025 Jorge Luis Zavala DO Emergency Provider Active St art: July 29, 2025 End: August 01, 2025 Chasity Castro MD Admit Provider Active Start : July 29, 2025 End: August 01, 2025 Chasity Castro MD Attending Provider Active S tart: July 29, 2025 End: August 01, 2025 Team Status: Active Member Role Status Dates Shantel Steven MD Primary Care Provider Active Start: August 03, 2025 Wandy Alvarez CMA Attending Provider Active Start: August 03, 2025 Team Status: Inactive Member Role Status Dates Shantel Steven MD Primary Care Provider Active Start: August 05, 2025 End: August 05, 2025 Shantel Steven MD Attending Provider Active St art: August 05, 2025 End: August 05, 2025 Team Status: Inactive Member Role Status Dates Shantel Steven MD Primary Care Provider Active Start: August 17, 2025 End: August 17, 2025 Lizett Jacinto APRN Attending Provider Active Start: August 17, 2025 End: August 17, 2025 Team Status: Active Member Role Status Dates Shantel Steven MD Primary Care Provider Active Team Status: Active Member Role Status Cecille [...] 2025 End: June 02, 2025 Team Status: Inactive Member Role [...] July 20, 2025 End: July 20, 2025 Team Status: Active Member Role Status Dates Shantel Steven MD Primary Care Provider Active Start: July 22, 2025 Shantel Steven MD Attending Provider Active St art: July 22, 2025 Team Status: Active Member Role Status Dates Monica Stewart MD Attending Provider Active Sta rt: July 23, 2025 Shantel Steven MD Primary Care Provider Active Start: July 23, 2025 Team Status: Active Member Role Status Dates Shantel Steven MD Primary Care Provider Active Start: July 24, 2025 Wandy Alvarez CMA Attending Provider Active Start: July 24, 2025 Team Status: Active Member Role Status Dates Shantel Steven MD Primary Care Provider Active Start: July 29, 2025 Jorge Luis Zavala DO Emergency Provider Active St art: July 29, 2025 Chasity Castro MD Admit Provider Active Start : July 29, 2025 Chasity Castro MD Attending Provider Active S tart: July 29, 2025 Team Status: Inactive Member Role Status [...] Martine Guerrero Attending Provider Active Start: [facility] 2024 Team Status: Active Member Role [...] Smith MD Other Provider Active Start: D ec2023 Rica Brownlee MD Other Provider Active [...] Status Dates Sahntel Steven MD Primary Care Provider Active Start: [...] End: January 18, 2024 Franchesca Sullivan APRN [employer] Attending Provider Act chiqui Start: January 18, [...] August 07, 2024 End: August 07, 2024 Records Analysis Manager Relationship Specialty Start Date End Date Shantel Steven MD [address] [place] [address] PCP - General Family Medicine 06/25/24 Records Analysis Manager Relationship Specialty Start Date End Date Shanetl Steven MD [address] [place] [address] PCP - General Family Medicine 06/25/24 Records Analysis Manager Relationship Specialty Start Date End Date Shantel Steven MD [address] [place] [facility] [place] [phone] PCP - General Family Medicine 06/25/24 Records Analysis Manager Relationship Specialty Start Date End Date Shantel Steven MD [address] [facility] [place] [phone] PCP - General Family Medicine 06/25/24 Records Analysis Manager Relationship Specialty Start Date End Date Shantel Steven MD [address] [place] [facility] [place] [address] PCP - General Family Medicine 06/25/24 Records Analysis Manager Relationship Specialty Start Date End Date Shantel Steven MD [address] [facility] [place] [phone] PCP - General Family Medicine 06/25/24 Records Analysis Manager Relationship Specialty Start Date End Date Shantel Steven MD [address] [facility] [place] [id number] PCP - General Family Medicine 06/25/24 Records Analysis Manager Relationship Specialty Start Date End Date Shantel Steven MD [address] [place] [facility] [place] [address] PCP - General Family Medicine 06/25/24 Team [...] July 29, 2025 End: August 01, 2025 Jorge Luis Zavala DO Emergency Provider Active St art: July 29, 2025 End: August 01, 2025 Chasity Castro MD Admit Provider Active Start : July 29, 2025 End: August 01, 2025 Chasity Castro MD Attending Provider Active S tart: July 29, 2025 End: August 01, 2025 Team Status: Active Member Role Status Dates Shantel Steven MD Primary Care Provider Active Start: August 03, 2025 Wandy Alvarez CMA Attending Provider Active Start: August 03, 2025 Team Status: Inactive Member Role Status Dates Shantel Steven MD Primary Care Provider Active Start: August 05, 2025 End: August 05, 2025 Shantel Steven MD Attending Provider Active St art: August 05, 2025 End: August 05, 2025 Team Status: Inactive Member Role Status Dates Shantel Steven MD Primary Care Provider Active Start: August 17, 2025 End: August 17, 2025 Lizett Jacinto APRN Attending Provider Active Start: August 17, 2025 End: August 17, 2025 Goals (unrecognized section and content) Goals [...] BE BASED ON THE PRIMARY CLINICAL RECORDS. [employer] provides no warranty or guarantee of the accuracy or completeness of information in this document.
[2025-08-20 08:58] LABS: Alanine Aminotransferase 23 U/L (14-59); Albumin Globulin Ratio 0.4; Albumin Level 2.2 g/dL (3.4-5.0); Alkaline Phosphatase 177 U/L (46-116); Anion Gap 14.3; Aspartate Amino Transferase 20 U/L (15-37); Blood Urea Nitrogen 73.0 mg/dL (7.0-18.0); Calcium 8.2 mg/dL (8.5-10.1); Carbon Dioxide 27.4 mmol/L (21.0-32.0); Chloride 107 mmol/L (98-107); Estimated GFR (African America 24 (>=60 mL/min/1.73m^2); Estimated GFR (Non-African Ame 19 (>=60 mL/min/1.73m^2); Globulin 5.6 g/dL; Glucose 166 mg/dL (74-106); Potassium 4.7 mmol/L (3.5-5.1); Sodium 144 mmol/L (136-145); Total Protein 7.8 g/dL (6.4-8.2)
[2025-08-20 08:59] LABS: NT Pro B Type Natriuretic Pept 6428.0 pg/mL (<=1800.0)
[2025-08-20 09:21] LABS: Glucose Urine UA NEGATIVE (NEGATIVE)
[2025-08-20 09:44] LABS: Cast Seen? NONE SEEN #/LPF (NONE SEEN); Crystals Seen? None Seen #/HPF (None Seen); Urine Culture Indicated YES-FRMC
--- NOTE | 2025-08-20 09:52 | ED.GENADUL1 ---
HPI HPI - General Adult General Chief complaint: Shortness of Breath/Dyspnea Stated complaint: sob Time Seen by Provider: 08/20/25 08:15 Source: patient Source information: EMS Mode of arrival: ambulance Limitations: no limitations History of Present Illness HPI narrative: Patient is a 80-year-old female, history significant for HFpEF, CKD, and paroxysmal A-fib on Xarelto, presenting to the emergency department via EMS for shortness of breath. The patient is on CPAP and is having a hard time answering questions. She states that she began feeling unwell last night, and this morning became more short of breath. Other than feeling SOB, she denies any other complaints. She denies any chest pain, nausea, vomiting, abdominal pain, dysuria, or hematuria. The later presented to the bedside. He added that the patient is currently being worked up for dementia by outpatient neurology, and recently started on amantadine. He states he is having a hard time being able to take care of his at home, and thinks she needs to be placed in a half-way. He does do the patient's ADLs, does not notice any melena or hematochezia. Related Data Home Medications ?Medication ?Instructions ?Recorded ?Confirmed insulin glargine 100 unit/mL (3 15 unit subcut BEDTIME 04/25/23 08/20/25 mL) subcutaneous pen (Lantus Solostar U-100 Insulin) levothyroxine 125 mcg tablet 125 mcg PO .acb 04/30/24 08/20/25 insulin NPH isoph U-100 human 100 1 unit subcut AC 06/09/24 08/20/25 unit/mL (3 mL) subcutaneous pen (Novolin N FlexPen) cholecalciferol (vitamin D3) 125 125 mcg PO DAILY 06/18/24 08/20/25 mcg (5,000 unit) tablet (Vitamin D3) vit C 226 mg-vit E 90 mg-copper 1 cap PO BID 06/18/24 07/22/25 0.8 mg-zinc oxide-lutein 5 mg capsule (PreserVision Lutein) famotidine 20 mg tablet 20 mg PO .qhs 07/24/24 08/20/25 Held on 08/20/25. Instructions: Doctor's Order buspirone 5 mg tablet 5 mg PO BID 01/25/25 08/20/25 amantadine HCl 100 mg capsule 100 mg PO DAILY 08/20/25 08/20/25 Held on 08/20/25. Instructions: Doctor's Order amlodipine 5 mg tablet 10 mg PO DAILY 08/20/25 08/20/25 bumetanide 1 mg tablet 1 mg PO BID 08/20/25 08/20/25 melatonin 10 mg capsule 10 mg PO HS PRN sleep 08/20/25 08/20/25 rivaroxaban 15 mg tablet (Xarelto) 15 mg PO QPM 08/20/25 08/20/25 Previous Rx's ?Medication ?Instructions ?Recorded metoprolol tartrate 25 mg tablet 25 mg PO BID #60 tabs 05/31/25 potassium chloride 20 mEq 20 meq PO DAILY #30 tabs 07/01/25 tablet,extended release Held on 08/20/25. Instructions: Doctor's Order Allergies Allergy/AdvReac Type Severity Reaction Status Date / Time Iodinated Contrast Media Allergy Intermediate Hives Verified 08/20/25 08:08 shellfish derived Allergy Intermediate Hives Verified 08/20/25 08:08 Sulfa (Sulfonamide Allergy Unknown Rash Verified 08/20/25 08:08 Antibiotics) Opioid HPI Opioid Management Most Recent Opioid Data: Last Pain Scale 0 07/23/25, 19:25 Last Pain Intensity 0 07/23/25, 14:17 Last Pain Assessment Today, 12:00 Last ORT Total Score 0 Today, 12:00 Last ORT Risk Category Low Risk Today, 12:00 Review of Systems ROS Status of ROS 10 or more systems reviewed and unremarkable except as noted in history and below [facility] Medical History (Updated 08/20/25 @ 10:51 by [place] DO) Noncompliance ?Z91.199 - Patient's noncompliance with other medical treatment and regimen due to unspecified reason (ICD-10) Diastolic congestive heart failure ?I50.30 - Unspecified diastolic (congestive) heart failure (ICD-10) CHF (congestive heart failure) ?I50.9 - Heart failure, unspecified (ICD-10) GERD without esophagitis ?K21.9 - Gastro-esophageal reflux disease without esophagitis (ICD-10) Anxiety ?F41.9 - Anxiety disorder, unspecified (ICD-10) Intermittent palpitations ?R00.2 - Palpitations (ICD-10) Acute hyperglycemia ?R73.9 - Hyperglycemia, unspecified (ICD-10) Acute kidney injury ?N17.9 - Acute kidney failure, unspecified (ICD-10) Acute on chronic clinical systolic heart failure ?I50.23 - Acute on chronic systolic (congestive) heart failure (ICD-10) Acute renal failure ?N17.9 - Acute kidney failure, unspecified (ICD-10) Hyperkalemia ?E87.5 - Hyperkalemia (ICD-10) Acute dehydration ?E86.0 - Dehydration (ICD-10) Diabetes mellitus with hyperglycemia, with long-term current use of insulin ?E11.65 - Type 2 diabetes mellitus with hyperglycemia (ICD-10) ?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 (ICD-10) Paroxysmal atrial fibrillation ?I48.0 - Paroxysmal atrial fibrillation (ICD-10) Hypothyroidism (acquired) ?E03.9 - Hypothyroidism, unspecified (ICD-10) Hypertension ?I10 - Essential (primary) hypertension (ICD-10) Hypokalemia ?E87.6 - Hypokalemia (ICD-10) CHF (congestive heart failure) ?I50.9 - Heart failure, unspecified (ICD-10) Cataracts, bilateral ?H26.9 - Unspecified cataract (ICD-10) Breast cancer ?C50.919 - Malignant neoplasm of unspecified site of unspecified female breast (ICD-10) Surgical History (Updated 07/05/25 @ 00:00 by ) History of cholecystectomy ?Z90.49 - Acquired absence of other specified parts of digestive tract (ICD-10) History of appendectomy ?Z90.49 - Acquired absence of other specified parts of digestive tract (ICD-10) History of hysterectomy ?Z90.710 - Acquired absence of both cervix and uterus (ICD-10) H/O lumbosacral spine surgery ?Z98.890 - Other specified postprocedural states (ICD-10) H/O bilateral mastectomy ?Z90.13 - Acquired absence of bilateral breasts and nipples (ICD-10) Family History Other Family history of CHF (congestive heart failure) Family history of cancer Family history of diabetes mellitus Family history of hypertension H/O mastectomy Social History Within the past year, how often did you have a drink containing alcohol: never Within the past year, how often did you have six or more drinks on one occasion: never Score interpretation: A score less than 3 is consistent with normal alcohol consumption. 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 Highest level of school completed/degree received: high school graduate Do you want help with school or training: No Are you now , , , , never or living with a partner: In a typical week, how many times do you talk on the telephone with family, friends, or neighbors: twice per week How often do you get together with friends or relatives: twice per week How often do you attend rastafari or nondenominational services: never Do you belong to any clubs or organizations such as rastafari groups unions, fraternal or athletic groups, or school groups: no Total score: 2 Score interpretation: A score of greater than or equal to 2 indicates the lowest level of social isolation. Little interest or pleasure in doing things: not at all Feeling down, depressed, or hopeless: not at all Feel stressed/tense/nervous/anxious/difficulty sleeping: not at all Due to disability, difficulty making decisions: No Do you think of yourself as: straight/heterosexual Gender Identity: female Exam Narrative Exam Narrative: CONSTITUTIONAL: Patient is awake and alert, on CPAP but able to answer basic questions, following commands SKIN: Was cool and dry. EYES: Periorbital edema. Sclera white. EARS, NOSE, THROAT: Dry mucous membranes. RESPIRATORY: Diminished breath sounds bilaterally. She is tachypneic, on CPAP, using accessory muscles to breathe. CARDIOVASCULAR: Normal rate and regular rhythm. There is no S3, S4, murmur, rub. GASTROINTESTINAL: Abdomen was soft and nontender. There is no guarding or rebound tenderness. There is pitting edema up to the umbilicus. MUSCULOSKELETAL: The patient has diffuse anasarca involving the bilateral extremities, face, and abdomen. There is no lower extremity erythema or cellulitic changes. NEUROLOGIC: Patient is awake and alert. Moving all extremities equally. Facies were symmetrical. Constitutional Vital Signs, click to edit/add: Last Vital Signs Temp 90.4 F L 08/20/25 12:00 Pulse 52 L 08/20/25 12:14 Resp 16 08/20/25 12:00 BP 119/47 L 08/20/25 12:00 Pulse Ox 91 L 08/20/25 12:00 O2 Del Method Nasal Cannula 08/20/25 12:00 O2 Flow Rate 3 08/20/25 12:00 FiO2 45 08/20/25 08:35 Course Vital Signs Vital signs: Vital Signs Pulse Rate 59 L 08/20/25 08:02 Respiratory Rate 24 H 08/20/25 08:02 Blood Pressure 160/100 H 08/20/25 08:02 Pulse Oximetry 99 08/20/25 08:02 Oxygen Delivery Method BIPAP 08/20/25 08:02 Fraction of Inspired Oxygen 45 08/20/25 08:02 Temperature 90.4 F L 08/20/25 12:00 Pulse Rate 52 L 08/20/25 12:14 Respiratory Rate 16 08/20/25 12:00 Blood Pressure 119/47 L 08/20/25 12:00 Pulse Oximetry 91 L 08/20/25 12:00 Oxygen Delivery Method Nasal Cannula 08/20/25 12:00 Oxygen Delivery Flow Rate 3 08/20/25 12:00 Fraction of Inspired Oxygen 45 08/20/25 08:35 Medical Decision Making MDM Narrative Medical decision making narrative: Patient is a 80-year-old female, a significant for HFpEF, CKD, paroxysmal A-fib on Xarelto, presenting to the emergency department for evaluation of shortness of breath beginning last night. Patient arrived via EMS on CPAP as she was noted to be tachypneic and hypoxic to 74% on room air. On arrival to our ED, the patient was placed on the night monitor that demonstrated normal sinus rhythm by my interpretation. She was immediately transitioned to BiPAP for respiratory support. Examination is notable for diffuse anasarca and diminished breath sounds bilaterally. Her vital signs were significant for hypothermia, warm blankets were placed for initial rewarming. On review of external documentation, patient has a history of HFpEF with a recent echocardiogram from May 28, 2025 and demonstrated ejection fraction of 65 to 70%. Severe LVH. Additionally, the patient has a history of CKD stage III, morbid obesity, and diabetes. Clinically, patient appears hypervolemic and respiratory status likely secondary decompensated heart failure. Other differential diagnosis includes acute on chronic renal disease, cardiorenal syndrome, pneumonia, UTI, pneumothorax, or other electrolyte/metabolic derangement. Ultrasound guided IV was established. She was given 80 mg IV Lasix for diuresis. Chest x-ray independent reviewed interpreted myself and radiology demonstrated continued pleural?parenchymal changes, greater on the left. This may be failure with pleural effusions and underlying left basilar consolidation. 12 Lead EKG: Normal sinus rhythm at a rate of 58. Normal axis. No ST segment elevations. QRS, FL, and QTc interval within normal limits. Final impression: normal sinus rhythm without evidence of acute myocardial ischemia Laboratory studies were remarkable for an elevated BNP in the 6400. Her troponin was not elevated. She has an acute kidney injury on CKD with a creatinine of 2.4 up from her baseline of approximately 1.8. She is having mild CO2 retention with a pCO2 of 54.5 on VBG. She is mildly anemic but close to her baseline. No leukocytosis. No transaminitis. Urinalysis was suggestive of UTI. On reevaluation, the patient was trialed off of BiPAP and maintained her saturations at 94% on 3 L nasal cannula for over an hour and a half. She is breathing more comfortably and is no longer tachypneic. The patient will be treated for UTI and also for possible left lower lobe pneumonia. She was empirically treated with IV ceftriaxone and IV doxycycline. She will require admission to the hospital for further care. Discussed patient with Dr. Stewart who accepted patient to her service. At the time of admission, patient remains stable on 3 L nasal cannula. FINAL IMPRESSION: #Acute CHF exacerbation #Acute hypoxia secondary to pulmonary edema #Acute urinary tract infection DISPOSITION: Admitted to the hospital CONDITION: Fair Medical Records Medical records reviewed: Yes I reviewed the patient's medical records Lab Data Lab results reviewed: Yes I reviewed the patient's lab results Labs: Lab Results 08/20/25 08/20/25 Range/Units 08:15 09:10 WBC 4.5 (4.0-11.0) 10^3/uL RBC 3.20 L (4.20-5.40) 10^6/uL Hgb 9.4 L (12.0-16.0) g/dL Hct 29.8 L (36.0-48.0) % MCV 93.1 (81.0-99.0) fL MCH 29.4 (26.7-34.0) pg MCHC 31.5 (29.9-35.2) g/dL RDW 16.2 H (11.0-15.0) % Plt Count 170 (150-450) 10^3/uL MPV 11.2 (9.5-13.5) fL Neut % (Auto) 74.0 (43.0-75.0) % Lymph % (Auto) 15.7 L (20.5-60.0) % Bath % (Auto) 7.6 (1.7-12.0) % Eos % (Auto) 1.8 (0.9-7.0) % Baso % (Auto) 0.7 (0.2-2.0) % Neut # (Auto) 3.3 (1.4-6.5) 10^3/uL Lymph # (Auto) 0.7 L (1.2-3.8) 10^3/uL Bath # (Auto) 0.3 (0.3-0.8) 10^3/uL Eos # (Auto) 0.1 (0.0-0.7) 10^3/uL Baso # (Auto) 0.0 (0.0-0.1) 10^3/uL Abs Immat Gran (auto) 0.01 (0.00-0.03) 10^3/uL Imm/Tot Granulo (auto) 0.2 (0.0-0.5) % VBG pH 7.280 L (7.330-7.430) VBG pCO2 54.5 H (40.0-52.0) mmHg Sodium 144 (136-145) mmol/L Potassium 4.7 (3.5-5.1) mmol/L Chloride 107 (98-107) mmol/L Carbon Dioxide 27.4 (21.0-32.0) mmol/L Anion Gap 14.3 BUN 73.0 H (7.0-18.0) mg/dL Creatinine 2.40 H (0.55-1.02) mg/dL Est GFR ( Amer) 24 L (>=60 mL/min/1.73m^2) Est GFR (Non-Af Amer) 19 L (>=60 mL/min/1.73m^2) BUN/Creatinine Ratio 30.4 Glucose 166 H (74-106) mg/dL Lactate 0.4 (0.4-2.0) mmol/L Calcium 8.2 L (8.5-10.1) mg/dL Magnesium 1.8 (1.8-2.4) mg/dL Total Bilirubin 0.4 (0.2-1.0) mg/dL AST 20 (15-37) U/L ALT 23 (14-59) U/L Alkaline Phosphatase 177 H (46-116) U/L Troponin I High Sens 13.5 (4.0-51.3) pg/mL NT-Pro-B Natriuret Pep 6428.0 H* (<=1800.0) pg/mL Total Protein 7.8 (6.4-8.2) g/dL Albumin 2.2 L (3.4-5.0) g/dL Globulin 5.6 g/dL Albumin/Globulin Ratio 0.4 Urine Color Lt. yellow (YELLOW) Urine Clarity Cloudy A (CLEAR) Urine pH 5.5 (5.0-9.0) Ur Specific [place] 1.025 (1.005-1.025) Urine Protein >=300 A (NEG/TRACE) mg/dL Urine Glucose (UA) Negative (NEGATIVE) mg/dL Urine Ketones Negative (NEGATIVE) mg/dL Urine Occult Blood Small A (NEGATIVE) Urine Nitrite Negative (NEGATIVE) Urine Bilirubin Negative (NEGATIVE) Urine Urobilinogen 0.2 (0.2-1.0) EU/dL Ur Leukocyte Esterase Small A (NEGATIVE) Urine RBC 0-2 (0-2) #/HPF Urine WBC >100 A (NONE SEEN) #/HPF Ur Squamous Epith Cells Rare (NONE/RARE) #/LPF Urine Crystals None seen (None Seen) #/HPF Urine Bacteria Large A (NONE SEEN) #/HPF Urine Casts None seen (NONE SEEN) #/LPF Urine Mucus None seen (NONE SEEN) Ur Culture Indicated? [place]-[facility] [place] Data Chest x-ray: Attestation: I personally reviewed and interpreted this imaging study as follows: Radiologist's impression: ITS Impressions Chest X-Ray 08/20/25 08:15 IMPRESSION: CONTINUED PLEURAL-PARENCHYMAL CHANGES, GREATER ON THE LEFT. THIS MAY BE FAILURE WITH PLEURAL EFFUSIONS AND UNDERLYING LEFT BASILAR CONSOLIDATION. Impression dictated by: Paola Dexter M.D. 08/20/2025 8:48 AM Dictation Location: [place] [id number] Electronically authenticated by: [id number] Y Date: 08/20/2025 08:48 ECG Data Attestation: I personally reviewed and interpreted this ECG as follows: Discharge Plan Discharge Chief Complaint: Shortness of Breath/Dyspnea Clinical Impression: Acute UTI, Acute exacerbation of CHF (congestive heart failure) Patient Disposition: Admitted As Inpatient Time of Disposition Decision: 10:51 Condition: Fair Discharge Date/Time: 08/20/25 11:45
[2025-08-20 10:04] LABS: Lactate/Lactic Acid 0.4 mmol/L (0.4-2.0)
[2025-08-20] MEDS: DOXYCYCLINE HYCLATE 100 MG in 0.9 % SODIUM CHLORIDE 100 ML IV (11:11)
--- OUTSIDE RECORDS SUMMARY | 2025-08-20 12:03 | XMS_ITS | CCD ---
Author Organization [facility] Care Team Providers Care Electrical Supervisor Name Role Phone UNKNOWN, PROVIDER Unavailable [...] Primary Care Unavailable TENISHA, DR SHATNEL Alvarado Primary Care Unavailable TENISHA, DR SHANTEL [...] Unavailable DR SHANTEL STEVEN Attending Unavailable DR SHATNEL STEVEN Consulting Unavailable Jaleesa Vanessa Unavailable MD Shantel Steven Primary Care Provider MD Shantel Steven Other Provider MD Eloina Hussein Attending Provider MD Eloina Hussein Referring Provider Tuma, DO Jorge Luis Ross Emergency Provider MD Shantel Steven Primary Care Provider Tupa, DO Jorge Luis M Emergency Provider [phone] MD Shantel Steven Primary Care Provider MD Shantel Steven Attending Provider [phone] MD Shantel Steven Attending Provider Shantel Steven [...] Shantel Steven MD Primary Care Provider [phone] Mauri Chavira DO Admit Provider Ange Vergara MD Other Provider Renetta Trivedi MD Other Provider Kavin Escobar DO Attending Provider Zhang Norwood DO Emergency Provider Daniele Jane DO Emergency Provider Shantel Cho MD Primary Care Provider Zhang [place]wood DO Emergency Provider [phone] Daniele Jane DO Emergency Provider Shantel Cho MD Primary Care Provider Shantel Steven MD Primary Care Provider Jorge Calix DO Emergency Provider Jorge Calix DO Emergency Provider Unavailable Shantel Steven MD Primary Care Provider Cherie Rapp MD Attending Provider [phone] Cheng Aviles APRN Attending Provider Jorge [...] Attending Provider UnavailJarred Palacios DO Attending Provider [phone] Osbaldo Marlow MD Attending Provider YAMEL PANDYA Attending Unavailable RICA KAPLAN Attending Unavailable SABRINA LUNA Attending Unavailable SABRINA LUNA Attending Unavailable SABRINA LUNA Attending Unavailable SABRINA LUNA Attending Unavailable YAMEL PANDYA Attending Unavailable YAMEL PANDYA Attending Unavailable Shantel Steven MD Primary Care Provider Shantel Steven MD Attending Provider [phone] Provider, Outside Attending Provider Unavailable Shantel Steven MD Primary Care Provider Cheng Aviles APRN Attending Provider Jorge Luis Zavala DO Emergency Provider Chasity Castro MD Admit Provider Gloria ESCOBAR, Chasity Attending Provider [phone] Shantel Steven Primary Care Unavailable Semaskiene, Chasity [...] Unavailable Shantel Steven MD Primary Care Provider [phone] Wandy Alvarez CMA Attending Provider Unavaila ble Lizett Jacinto APRN Attending Provider Allergies Allergy Classification Reported Allergen(s) Allergy Type Date of Onset Reaction(s) Facility (1 source) Iodine (And Iodine Containting Drugs) Drug allergy (disorder) 03-04-20 12 The [facility] Repository (20 sources) Shellfish; Translations: [Shellfish] Food allergy (disorder) 03-04-20 12 rash, Eruption of skin (disorder) The [facility] Repository (20 sources) Sulfonamides (Antibiotic); Translations: [SULFA (SULFONAMIDE ANTIBIOTICS)] Drug allergy (disorder) 03-04-20 12 Rash The [facility] Repository (20 sources) Sulfacetamide Drug Allergy 02-15-20 24 diarrhea [facility] (20 sources) Contrast media; Translations: [contrast media (iodine-based)] Drug allergy 02-15-20 Unknown (qualifier value), Rash [facility] (6 sources) Sulfonamides (Antibiotic); Translations: [sulfa drugs] Drug allergy Diarrhea (finding) [facility] (2 sources) Glucosamine Drug Allergy The [facility] Repository (2 sources) Iodine (And Iodine Containting Drugs) Drug allergy (disorder) 08-09-20 17 The [facility] Repository (11 sources) Contrast media Propensity to adverse reactions 11-18-[address] DYE [facility] [employer] Other (20 sources) Iodine; Translations: [IODINE] Drug Allergy 10-30-20 14 Other, Unknown [facility] [employer] Other (20 sources) Substance with sulfonamide structure and antibacterial mechanism of action (substance) Drug allergy 10-30-20 14 Unknown [facility] [employer] Other (11 sources) Dyes Propensity to adverse reactions Comment:CT Dyes,Dyes,IVP Dyes [facility] [employer] Other (20 sources) Shellfish; Translations: [SHELLFISH DERIVED] Allergy to substance 10-30-20 14 [facility] (20 sources) Iodinated Contrast Media; Translations: [IODINATED CONTRAST MEDIA] Allergy to substance 02-15-20 24 [facility] (13 sources) metFORMIN; Translations: [METFORMIN HCL] Drug Allergy 07-03-20 24 [facility] (6 sources) Chocolate Flavoring Agent (Non-Screening) Propensity to adverse reactions 01-17-20 23 [facility] [employer] Work Phone: (12 sources) Shellfish-Derive d Products Drug Intolerance 03-15-20 18 [facility] (7 sources) Chocolate; Translations: [CHOCOLATE FLAVOR] Propensity to adverse reactions 01-17-20 23 [facility] [employer] Work Phone: (1 source) Sulfacetamide Drug Allergy 08-05-20 [facility] Repository (1 source) Sulfonamides (Antibiotic) Drug allergy (disorder) 08-05-20 [facility] Repository (1 source) gabapentin Drug Allergy 08-17-20 25 [facility] Medications Current Medications Medication Drug Class(es) Dates [...] ascorbic acid 226 mg / beta carotene 44150 unt / cuprous oxide 0.8 mg / dl-alpha tocopheryl acetate 200 unt / zinc oxide 34.8 mg oral capsule (10 sources) Vitamin C Start: 01-17-2024 Start: 01-17-2024 take 1 capsule by [facility] twice daily Vitamins A,C,Z-Hcto-Lcnlse (Preservision Areds) 4,296 mcg-226 mg-90 mg capsule [...] Daily, # 30 EA, Refills(s) 11, Pharmacy: [id number], 165.1, cm, 03/07/21 13:49:00 EDT, Height/Length Dosing, 121.8, kg, 03/07/21 13:49:00 EDT, Weight Dosing Start Date: 03/07/21 Status: Ordered Start: 03-07-2021 Questran 4 g/9 g oral powder = 1 packet(s), Oral, Daily, # 30 EA, Refills(s) 11, Pharmacy: [id number], 165.1, cm, 03/07/21 13:49:00 EDT, Height/Length [...] Glucose Scanning Reade r ([employer] [place]) misc (17 sources) Start: 09-10-2024 Flash Glucose [facility] [place] ([facility] [place]) misc Active 0 .Route September 10, 2024 8:12am As directed Start: 09-10-2024 Flash Glucose [facility] [place] ([facility] [facility] [place]) misc Active 0 .Route September 10, 2024 7:12am As directed Start: 07-16-2024 End: 09-10-2024 Flash Glucose Scanning [place] [facility] ([employer] [facility] [place]) misc Discontinued 0 .Route July 16, 2024 12:00am September 10, 2024 8:13am As directed Start: 07-16-2024 End: 09-10-2024 Flash Glucose Scanning [place] [facility] ([employer] [place]) misc Discontinued 0 .Route July 15, 2024 11:00pm September 10, 2024 7:13am As directed Start: 07-16-2024 Flash Glucose Scanning [place] ([employer] [facility] [place]) misc Active 0 .Route July 16, 2024 [...] capsule Orally Once a day Active Vitamins A,C,X-Qduo-Dmwfav (Preservision Areds) 4,296 mcg-226 mg-90 mg capsule (18 sources) Start: 01-17-2024 take 1 capsule by mouth twice daily Vitamins A,C,S-Yskc-Heqcvz (Preservision Areds) 4,296 mcg-226 mg-90 mg capsule Active 1 CAP PO Twice daily January 17, 2024 12:00am Start: 01-17-2024 take 1 capsule by mo uth twice daily Vitamins A,C,J-Vsae-Nrwpzm (Preservision Areds) 4,296 mcg-226 mg-90 mg capsule [...] 12, 2021 12:00am June 19, 2021 3:13am [id number] 200 actuat albuter ol 0.09 mg/actuat metered [...] Channel Khadijah Start: 025 End: 025 amylase 274285 unt / lipase 38556 unt / protease 97109 unt delayed release oral capsule (20 sources) Start: 021 End: 021 Start: 06-11-2021 End: 06-19-2021 Tdewoy-Fzdsdrrd-Mwofcdq (Cre on) 24,000-76,000 -120,000 unit capsule,delayed release(DR/EC) Discontinued 1 - 2 CAP PO 1-2 TIMES DAILY June 11, 2021 12:00am June 19, 2021 3:12am Start: 05-10-2021 Crebonnie 24,000 u nits oral delayed release capsule See Instructions, take 3 caps with each meal and 2 caps with each snack., # 390 caplet(s), Refills(s) 0, Pharmacy: [id number], 165.1, cm, 04/18/21 13:02:00 EDT, Height/Length [...] 01-17-2024 End: 04-03-2024 take 1 capsule by [facility] every twenty-four hours Biotin 5 MG [...] 2024 12:06pm July 16, 2024 10:36am Nystatin 562050 UNIT/GM 1 application Externally Twice a day for 10 days Active Nystatin 878796 UNIT/GM 1 application Externally Twice a day for 10 days Active nystatin 430437 unt/ml / triamcinolone acetonide 1 mg/ml topical [...] June 05, 2024 11:06am swish and swallow [place] 1-Lmb-Wtw-Fish Oil (Fish Oil) 1,000 mg (120 mg-180 mg) capsule (19 sources) Start: 01-17-2024 End: 04-03-2024 take 1 capsule by mouth once daily [place] 5-Kjo-Kvt-Fish Oil (Fish Oil) 1,000 mg (120 mg-180 mg) capsule Discontinued 1 CAP PO Daily January 17, 2024 12:00am April 03, 2024 10:49am Start: 01-17-2024 End: 04-03-2024 take 1 capsule by mouth once daily [place] 8-Obw-Wzj-Fish Oil (Fish Oil) 1,000 mg (120 mg-180 mg) capsule Discontinued 1 CAP PO Daily January 17, 2024 1:00am April 03, 2024 11:49am Start: 01-17-2024 take 1 capsule by [facility] once daily [place] 9-Zsn-Xvu-Fish Oil (Fish Oil) 1,000 mg (120 mg-180 [...] Coronary arteriosclerosis; Translations: [Atherosclerotic 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] Onset: 2 [...] sources) Long-term current use of insulin; 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: [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] Onset: 4 Resolved: 4 01-17-2024 Episodic Other aftercare (1 source) Other watcher automat long goods (current) drug therapy; Translations: [OTH INTERMEDIATE CURRENT DRUG THERAPY] Onset: 3 Episodic Other aftercare (1 source) marine oil terminal superintendent (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 anticoagulants; Translations: [INTERMEDIATE CURRNT USE 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] Onset: 3 Episodic Other [...] 01-16-2023 07-27-2022 Episodic Other aftercare (5 sources) 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 Performed By: #### B PRESS TECHNICIAN, HS TROP, PT, CBC, BMP #### [address] GFR/1.73 sq M.predicted MDRD (S/P/Bld) [Vol rate/Area] 25.401 mL/min/{1.73_m2} Normal The [facility] Comment on above: Performed By: #### B PRESS TECHNICIAN, HS TROP, PT, CBC, BMP #### [address] Calcium [Mass/volume] in Ser um or PlasmaOrdered By: Chasity Castro on 08-01-2025 Calcium [Mass/Vol] 8.2 mg/dL Low 8.6-10.3 [facility] Comment on above: Performed By: #### B PRESS TECHNICIAN, HS TROP, PT, CBC, BMP #### [address] Capillary blood glucose wander urement by glucometer (mass/volume)Ordered By: Chasity Castro on 08-01-2025 Glucose [Mass/Vol] 136 mg/dL [facility] Comment on above: Result Comment: [facility] Glucose Reference Range is dependent on time and content of last meal. Glucose of more than 200 mg/dL in a nonstressed, ambulatory subject supports the diagnosis of Diabetes Mellitus. PERFORMED BY: [place] [address] PATHOLOGIST [employer] SIMON LINTON M.D. Performed By: #### B PRESS TECHNICIAN, HS TROP, PT, CBC, BMP #### [facility] [address] [place] [address] Carbon dioxide, total [Moles /volume] in Serum or PlasmaOrdered By: Chasity aCstro on 08-01-2025 CO2 [Moles/Vol] 26.0 mmol/L 21.0-31.0 [facility] Comment on above: Performed By: #### B PRESS TECHNICIAN, HS TROP, PT, CBC, BMP #### [facility] [address] [place] [address] [place] Chloride [Moles/volume] in S oziel or PlasmaOrdered By: Chasity Castro on 08-01-2025 Chloride [Moles/Vol] 107 mmol/L 98-107 [facility] Comment on above: Performed By: #### B PRESS TECHNICIAN, HS TROP, PT, CBC, BMP #### [facility] [address] [place] [address] [place] Creatinine [Mass/volume] in Serum or PlasmaOrdered By: Chasity Castro on 08-01-2025 Creatinine [Mass/Vol] 1.97 mg/dL High 0.60-1.[address] [facility] Comment on above: Performed By: #### B PRESS TECHNICIAN, HS TROP, PT, CBC, BMP #### [facility] [address] [place] [address] [place] Glomerular filtration rate [ Volume Rate/Area] in Serum, Plasma or Blood by CreatinineOrdered By: Chasity Castro on 08-01-2025 Glomerular filtration rate [Volume Rate/Area] in Serum, Plasma or Blood by Creatinine 25.401 mL/Min [facility] Glucose Poct Glucometerson 0 08-01-2025 Glucose [Mass/Vol] 110 mg/dL Normal The [facility] Comment on above: Result Comment: [place] [facility] Glucose Reference Range is dependent on time and content of last meal. Glucose of more than 200 mg/dL in a nonstressed, ambulatory subject supports the diagnosis of Diabetes Mellitus. PERFORMED BY: [place] [address] PATHOLOGIST [employer] SIMON LINTON M.D. Performed By: #### B MP, CBC #### [address] Glucose [Mass/volume] in Ser um or PlasmaOrdered By: Chasity Castro on 08-01-2025 Glucose [Mass/Vol] 132 mg/dL High 70-100 [facility] Comment on above: Result Comment: [place] [facility] Glucose Reference Range is dependent on time and content of last meal. Glucose of more than 200 mg/dL in a nonstressed, ambulatory subject supports the diagnosis of Diabetes Mellitus. ADA recommended reference range Performed By: #### B PRESS TECHNICIAN, HS TROP, PT, CBC, BMP #### [address] No Panel InformationOrdered By: Chasity Castro on 08-01-2025 29.80 [facility] Potassium [Moles/volume] in Serum or PlasmaOrdered By: Chasity Castro on 08-01-2025 Potassium [Moles/Vol] 4.9 mmol/L 3.5-5.[address] [facility] Comment on above: Performed By: #### B PRESS TECHNICIAN, HS TROP, PT, CBC, BMP #### [address] Serum or plasma anion gap de terminationOrdered By: Chasity Castro on 08-01-2025 Anion gap [Moles/Vol] 12.9 mmol/L 6.0-15.0 [facility] Comment on above: Performed By: #### B PRESS TECHNICIAN, HS TROP, PT, CBC, BMP #### [address] Sodium [Moles/volume] in Ser um or PlasmaOrdered By: Chasity Castro on 08-01-2025 Sodium [Moles/Vol] 141 mmol/L 136-145 [facility] Comment on above: Performed By: #### B PRESS TECHNICIAN, HS TROP, PT, CBC, BMP #### [facility] [address] Urea nitrogen [Mass/volume] in Serum or PlasmaOrdered By: Chasity Castro on 08-01-2025 Urea nitrogen [Mass/Vol] 48 mg/dL High 7-25 [facility] Comment on above: Performed By: #### B PRESS TECHNICIAN, HS TROP, PT, CBC, BMP #### [facility] [address] BNP ser/plasOrdered By: Chasity Castro on 07-31-2025 Natriuretic peptide B (Bld) [Mass/Vol] 503.0 pg/mL High 5-100 [facility] Comment on above: Order Comment: Comme nt add Result Comment: PERF ORMED BY: [place] [address] PATHOLOGIST [employer] SIMON LINTON M.D. Performed By: #### B PRESS TECHNICIAN, HS TROP, PT, CBC, BMP #### [facility] [address] Basic Metabolic Panelon 07-13 Anion gap [Moles/Vol] 10.6 mmol/L Normal 6.0-15.[address] [facility] Comment on above: Performed By: #### B MP, CBC #### [facility] [address] Calcium [Mass/Vol] 8.1 mg/dL Low 8.6-10.3 The On [facility] of [facility] Comment on above: Performed By: #### B MP, CBC #### [facility] [address] [place] [address] [place] Chloride [Moles/Vol] 110 mmol/L High 98-107 [facility] Comment on above: Performed By: #### B MP, CBC #### [place] [address] [place] CO2 [Moles/Vol] 27.9 mmol/L Normal 21.0-31.0 The [facility] Comment on above: Performed By: #### B MP, CBC #### [address] Creatinine [Mass/Vol] 1.86 mg/dL High 0.60-1.20 [facility] Comment on above: Performed By: #### B MP, CBC #### [place] [address] [place] Creatinine Clr Calc Pharmacy 31.39 Normal [facility] Comment on above: Result Comment: PERF ORMED BY: [place] [address] PATHOLOGIST [employer] SIMON LINTON M.D. Performed By: #### B MP, CBC #### [place] [address] [place] GFR/1.73 sq M.predicted MDRD (S/P/Bld) [Vol rate/Area] 27.214 mL/min/{1.73_m2} Normal The [facility] Comment on above: Performed By: #### B MP, CBC #### [address] Glucose [Mass/Vol] 98 mg/dL Normal 70-100 The [facility] Comment on above: Result Comment: [place] Glucose Reference Range is dependent on time and content of last meal. Glucose of more than 200 mg/dL in a nonstressed, ambulatory subject supports the diagnosis of Diabetes Mellitus. ADA recommended reference range Performed By: #### B MP, CBC #### [place] [address] [place] Potassium [Moles/Vol] 4.5 mmol/L Normal 3.5-5.1 [facility] Comment on above: Performed By: #### B MP, CBC #### [place] [address] [place] Sodium [Moles/Vol] 144 mmol/L Normal 136-145 [facility] Comment on above: Performed By: #### B MP, CBC #### [address] Urea nitrogen [Mass/Vol] 49 mg/dL High 7-25 [facility] Comment on above: Performed By: #### B MP, CBC #### [address] Basophils [#/volume] in Bloo d by Automated countOrdered By: Chasity Castro on 07-31-2025 Basophils (Bld) [#/Vol] 0.1 10*3/uL 0.0-0.2 [facility] Comment on above: Result Comment: PERF ORMED BY: [place] [address] PATHOLOGIST [employer] SIMON LINTON M.D. Performed By: #### B MP, CBC #### [address] Basophils/100 leukocytes in Blood by Automated countOrdered By: Chasity Castro on 07-31-2025 Basophils/100 WBC (Bld) 1.5 % . [facility] Comment on above: Performed By: #### B MP, CBC #### [address] Complete Blood Count Auto Di ffon 07-31-2025 Mean Corpuscular HGB Conc 32.9 g/dL Normal 32.0-35.0 [facility] Comment on above: Performed By: #### B MP, CBC #### [address] NRBC% 0.2 /100{WBC} Normal 0-0.[address] [facility] Comment on above: Performed By: #### B MP, CBC #### [address] White Blood Count 4.8 [CFU]/mL Normal 3.8-11.[address] [facility] Comment on above: Performed By: #### B MP, CBC #### [address] Eosinophils [#/volume] in Bl ood by Automated countOrdered By: Chasity Castro on 07-31-2025 Eosinophils (Bld) [#/Vol] 0.1 10*3/uL 0.0-0.45 [facility] Comment on above: Performed By: #### B MP, CBC #### [address] Eosinophils/100 leukocytes i n Blood by Automated countOrdered By: Chasity Castro on 07-31-2025 Eosinophils/100 WBC (Bld) 1.5 % . [facility] Comment on above: Performed By: #### B MP, CBC #### [address] Erythrocyte distribution wid th [Ratio] by Automated countOrdered By: Chaisty Castro on 07-31-2025 Erythrocyte distribution width (RBC) [Ratio] 17.0 % High 11.9-15.3 [facility] Comment on above: Performed By: #### B MP, CBC #### [address] Erythrocytes [#/volume] in B lood by Automated countOrdered By: Chasity Castro on 07-31-2025 RBC (Bld) [#/Vol] 3.53 10*6/uL Low 3.60-5.00 [facility] Comment on above: Performed By: #### B MP, CBC #### [address] Glucose Poct Glucometerson 0 07-31-2025 Glucose [Mass/Vol] 115 mg/dL Normal [facility] Comment on above: Result Comment: [place] Glucose Reference Range is dependent on time and content of last meal. Glucose of more than 200 mg/dL in a nonstressed, ambulatory subject supports the diagnosis of Diabetes Mellitus. PERFORMED BY: [place] [address] PATHOLOGIST [employer] SIMON LINTON M.D. Performed By: #### B MP, CBC #### [address] Glucose [Mass/Vol] 122 mg/dL Normal [facility] Comment on above: Result Comment: [place] [facility] Glucose Reference Range is dependent on time and content of last meal. Glucose of more than 200 mg/dL in a nonstressed, ambulatory subject supports the diagnosis of Diabetes Mellitus. PERFORMED BY: [place] [address] PATHOLOGIST [employer] SIMON LINTON M.D. Performed By: #### B PRESS TECHNICIAN, HS TROP, PT, CBC, BMP #### [address] Glucose [Mass/Vol] 143 mg/dL Normal The [facility] Comment on above: Result Comment: [place] [facility] Glucose Reference Range is dependent on time and content of last meal. Glucose of more than 200 mg/dL in a nonstressed, ambulatory subject supports the diagnosis of Diabetes Mellitus. PERFORMED BY: [place] [phone] PATHOLOGIST [employer] SIMON LINTON M.D. Performed By: #### B PRESS TECHNICIAN, HS TROP, PT, CBC, BMP #### [address] Glucose [Mass/Vol] 118 mg/dL Normal The [facility] Comment on above: Result Comment: [place] [facility] Glucose Reference Range is dependent on time and content of last meal. Glucose of more than 200 mg/dL in a nonstressed, ambulatory subject supports the diagnosis of Diabetes Mellitus. PERFORMED BY: [place] [address] PATHOLOGIST [employer] SIMON LINTON M.D. Performed By: #### B PRESS TECHNICIAN, HS TROP, PT, CBC, BMP #### [address] Hematocrit [Volume Fraction] of Blood by Automated countOrdered By: Chasity Castro on 07-31-2025 Hematocrit (Bld) [Volume fraction] 31.7 % Low 34.0-46.4 [facility] Comment on above: Performed By: #### B MP, CBC #### [facility] [address] [place] [address] [place] Hemoglobin [Mass/volume] in BloodOrdered By: Chasity Castro on 07-31-2025 Hemoglobin (Bld) [Mass/Vol] 10.4 g/dL Low 11.8-15.4 [facility] Comment on above: Performed By: #### B MP, CBC #### [facility] [address] Leukocytes [#/volume] correc gali for nucleated erythrocytes in Blood by Automated counOrdered By: Chasity Castro on 07-31-2025 WBC corrected for nucl RBC Auto (Bld) [#/Vol] 4.8 10*3/uL 3.8-11.6 [facility] Leukocytes [#/volume] in Blo od by Automated countOrdered By: Chasity Castro on 07-31-2025 WBC (Bld) [#/Vol] 4.8 10*3/uL 3.8-11.6 [facility] Comment on above: Performed By: #### B MP, CBC #### [facility] [address] [place] [address] [place] Lymphocytes [#/volume] in Bl ood by Automated countOrdered By: Chasity Castro on 07-31-2025 Lymphocytes (Bld) [#/Vol] 0.9 10*3/uL Low 1.00-4.8 [facility] Comment on above: Performed By: #### B MP, CBC #### [facility] [address] [place] [address] [place] Lymphocytes/100 leukocytes i n Blood by Automated countOrdered By: Chasity Castro on 07-31-2025 Lymphocytes/100 WBC (Bld) 17.9 % . [facility] Comment on above: Performed By: #### B MP, CBC #### [facility] [address] [place] [address] [place] MCH [Entitic mass] by Automa gali countOrdered By: Chasity Castro on 07-31-2025 MCH (RBC) [Entitic mass] 29.4 pg 24.7-34.3 [facility] Comment on above: Performed By: #### B MP, CBC #### [address] MCHC Auto (RBC) [Mass/Vol]Or dered By: Chasity Castro on 07-31-2025 MCHC (RBC) [Mass/Vol] 32.9 g/dL 32.0-35.[address] [facility] MCV [Entitic volume] by Auto mated countOrdered By: Chasity Castro on 07-31-2025 MCV (RBC) [Entitic vol] 89.6 fL 80-100 [facility] Comment on above: Performed By: #### B MP, CBC #### [address] Monocytes [#/volume] in Bloo d by Automated countOrdered By: Chasity Castro on 07-31-2025 Monocytes (Bld) [#/Vol] 0.4 10*3/uL 0.0-0.8 [facility] Comment on above: Performed By: #### B MP, CBC #### [place] [place] [address] [place] Monocytes/100 leukocytes in Blood by Automated countOrdered By: Chasity Castro on 07-31-2025 Monocytes/100 WBC (Bld) 7.7 % . [facility] Comment on above: Performed By: #### B MP, CBC #### [place] [address] [place] Neutrophils [#/volume] in Bl ood by Automated countOrdered By: Chasity Castro on 07-31-2025 Neutrophils (Bld) [#/Vol] 3.4 10*3/uL 1.8-7.7 [facility] Comment on above: Performed By: #### B MP, CBC #### [place] [address] [place] Neutrophils/100 leukocytes i n Blood by Automated countOrdered By: Chasity Castro on 07-31-2025 Neutrophils/100 WBC (Bld) 71.4 % . [facility] Comment on above: Performed By: #### B MP, CBC #### [facility] [address] [place] [address] [place] Nucleated erythrocytes [Pres ence] in Blood by Automated countOrdered By: Chasity Castro on 07-31-2025 Nucleated RBC Auto Ql (Bld) 0.2 /100{WBC} 0-0.5 [facility] Platelet mean volume [Entiti c volume] in Blood by Automated countOrdered By: Chasity Castro on 07-31-2025 Platelet mean volume (Bld) [Entitic vol] 8.9 fL 6.3-10.7 [facility] Comment on above: Performed By: #### B MP, CBC #### [facility] [address] [place] [address] Platelets [#/volume] in Bloo d by Automated countOrdered By: Chasity Castro on 07-31-2025 Platelets (Bld) [#/Vol] 185 10*3/uL 150-450 [facility] Comment on above: Performed By: #### B MP, CBC #### [facility] [address] [place] [address] X-ray reportOrdered By: Kirit Langston on 07-31-2025 Study report [facility] Work Phone: XR chest 2V*on 07-31-2025 XR chest 2V* [facility] Main [place] [address] [place] [address] XRay Report Signed Patient: Joe Call MR#: [id number] 0 : 1945 Acct:[id number] Age/Sex: 80 / F ADM Date: 07/29/25 Loc: Room: [address] [place] [address] Type: ADM IN Attending Dr: Chasity Castro [...] Langston M.D. 07/31/2025 8:10 PM Dictation Location: [facility]--29 Transcribed By: [facility] 07/31/252009 Dictated By: Vargas Langston MD 07/31/252008 Signed By: 07/31/252009 Normal The [facility] Basic Metabolic Panelon 07-13 Anion gap [Moles/Vol] 10.6 mmol/L Normal 6.0-15.0 Th e [facility] Comment on above: Performed By: #### B MP, CBC #### [facility] [address] [id number] [place] Calcium [Mass/Vol] 7.9 mg/dL Low 8.6-10.3 The On license of [facility] Comment on above: Performed By: #### B MP, CBC #### [facility] [address] [id number] [place] Chloride [Moles/Vol] 110 mmol/L High 98-107 [facility] Comment on above: Performed By: #### B MP, CBC #### [facility] [address] [place] [address] [place] CO2 [Moles/Vol] 29.1 mmol/L Normal 21.0-31.0 The [facility] Comment on above: Performed By: #### B MP, CBC #### [facility] [address] [place] [address] [place] Creatinine [Mass/Vol] 1.90 mg/dL High 0.60-1.20 The [facility] Comment on above: Performed By: #### B MP, CBC #### [facility] [address] [place] [address] [place] Creatinine Clr Calc Pharmacy 31.06 Normal The [facility] Comment on above: Result Comment: PERF ORMED BY: [place] [address] PATHOLOGIST [employer] SIMON LINTON M.D. Performed By: #### B MP, CBC #### [address] GFR/1.73 sq M.predicted MDRD (S/P/Bld) [Vol rate/Area] 26.528 mL/min/{1.73_m2} Normal The [facility] Comment on above: Performed By: #### B MP, CBC #### [address] Glucose [Mass/Vol] 94 mg/dL Normal 70-100 The On license of [facility] Comment on above: Result Comment: [facility] Glucose Reference Range is dependent on time and content of last meal. Glucose of more than 200 mg/dL in a nonstressed, ambulatory subject supports the diagnosis of Diabetes Mellitus. ADA recommended reference range Performed By: #### B MP, CBC #### [address] Potassium [Moles/Vol] 4.7 mmol/L Normal 3.5-5.1 The [facility] Comment on above: Performed By: #### B MP, CBC #### [address] Sodium [Moles/Vol] 145 mmol/L Normal 136-145 The On [facility] Comment on above: Performed By: #### B MP, CBC #### [address] Urea nitrogen [Mass/Vol] 52 mg/dL High 7-25 The [facility] Comment on above: Performed By: #### B MP, CBC #### [address] Complete Blood Count Auto Di ffon 07-30-2025 Basophils (Bld) [#/Vol] 0.1 10*3/uL Normal 0.0-0.2 [facility] Comment on above: Result Comment: PERF ORMED BY: [place] [address] PATHOLOGIST [employer] SIMON LINTON M.D. Performed By: #### B MP, CBC #### [facility] [address] Basophils/100 WBC (Bld) 1.8 % Normal . [facility] Comment on above: Performed By: #### B MP, CBC #### [facility] [address] [place] [address] [place] Eosinophils (Bld) [#/Vol] 0.1 10*3/uL Normal 0.0-0.45 [facility] Comment on above: Performed By: #### B MP, CBC #### [facility] [address] Eosinophils/100 WBC (Bld) 1.6 % Normal . [facility] Comment on above: Performed By: #### B MP, CBC #### [address] Erythrocyte distribution width (RBC) [Ratio] 16.8 % High 11.9-15.3 The [facility] Comment on above: Performed By: #### B MP, CBC #### [address] Hematocrit (Bld) [Volume fraction] 30.8 % Low 34.0-46.4 The [facility] Comment on above: Performed By: #### B MP, CBC #### [place] [address] [place] Hemoglobin (Bld) [Mass/Vol] 10.0 g/dL Low 11.8-15.4 The [facility] Comment on above: Performed By: #### B MP, CBC #### [facility] [address] [place] [address] [place] Lymphocytes (Bld) [#/Vol] 0.8 10*3/uL Low 1.00-4.8 The [facility] Comment on above: Performed By: #### B MP, CBC #### [facility] [address] [place] [address] [place] Lymphocytes/100 WBC (Bld) 17.9 % Normal . [facility] Comment on above: Performed By: #### B MP, CBC #### [address] MCH (RBC) [Entitic mass] 29.4 pg Normal 24.7-34.3 The [facility] Comment on above: Performed By: #### B MP, CBC #### [address] MCV (RBC) [Entitic vol] 90.9 fL Normal 80-100 The [facility] Comment on above: Performed By: #### B MP, CBC #### [address] Mean Corpuscular HGB Conc 32.4 g/dL Normal 32.0-35.0 [facility] Comment on above: Performed By: #### B MP, CBC #### [address] Monocytes (Bld) [#/Vol] 0.4 10*3/uL Normal 0.0-0.8 The [facility] Comment on above: Performed By: #### B MP, CBC #### [address] Monocytes/100 WBC (Bld) 8.9 % Normal . [facility] Comment on above: Performed By: #### B MP, CBC #### [address] Neutrophils (Bld) [#/Vol] 3.3 10*3/uL Normal 1.8-7.7 [facility] Comment on above: Performed By: #### B MP, CBC #### [place] [address] [place] Neutrophils/100 WBC (Bld) 69.8 % Normal . [facility] Comment on above: Performed By: #### B MP, CBC #### [address] NRBC% 0.1 /100{WBC} Normal 0-0.[address] [facility] Comment on above: Performed By: #### B MP, CBC #### [facility] [address] Platelet mean volume (Bld) [Entitic vol] 9.0 fL Normal 6.3-10.7 The [facility] Comment on above: Performed By: #### B MP, CBC #### [facility] [address] Platelets (Bld) [#/Vol] 185 10*3/uL Normal 150-450 The [facility] Comment on above: Performed By: #### B MP, CBC #### [address] RBC (Bld) [#/Vol] 3.39 10*6/uL Low 3.60-5.[address] [facility] Comment on above: Performed By: #### B MP, CBC #### [address] WBC (Bld) [#/Vol] 4.7 10*3/uL Normal 3.8-11.6 The [facility] Comment on above: Performed By: #### B MP, CBC #### [address] White Blood Count 4.7 [CFU]/mL Normal 3.8-11.[address] [facility] Comment on above: Performed By: #### B MP, CBC #### [address] ECH echo transthoracicon ECH echo transthoracic [facility] [place] [address] Echocardiogram Signed Patient: Joe Call MR#: [id number] 0 : 1945 Acct:[id number] Age/Sex: 80 / F ADM Date: 07/29/25 Loc: Room: [address] [place] [address] Type: ADM IN Attending Dr: Chasity Castro MD Ordering Provider: Chasity Castro MD Date of Service: 07/29/25 ECH/ECH echo transthoracic: chf Copies to: Yumiko Alex MD, [facility] Chasity Castro MD RVT BSA: 2.2 m2 BP: 132/76 mmHg HR: 74 Reason For Study: chf History: CHF [place] AFib Bradycardia CKD HTN HLD DM AR Interpretation Summary Moderate to severe concentric left [...] FAC (more content not included)... Normal [facility] Glucose Poct Glucometerson 0 07-30-2025 Glucose [Mass/Vol] 149 mg/dL Normal The On [facility] Comment on above: Result Comment: [facility] Glucose Reference Range is dependent on time and content of last meal. Glucose of more than 200 mg/dL in a nonstressed, ambulatory subject supports the diagnosis of Diabetes Mellitus. PERFORMED BY: [place] [address] PATHOLOGIST [employer] SIMON LINTON M.D. Performed By: #### B PRESS TECHNICIAN, HS TROP, PT, CBC, BMP #### [address] Glucose [Mass/Vol] 138 mg/dL Normal The [facility] Comment on above: Result Comment: [facility] Glucose Reference Range is dependent on time and content of last meal. Glucose of more than 200 mg/dL in a nonstressed, ambulatory subject supports the diagnosis of Diabetes Mellitus. PERFORMED BY: [place] [address] PATHOLOGIST [employer] SIMON LINTON M.D. Performed By: #### G MICK #### Point of Care testing , Commemt1 Glu2: Cleaned Meter Normal The [facility] Comment on above: Result Comment: PERF ORMED BY: [place] [address] PATHOLOGIST [employer] SIMON LINTON M.D. Performed By: #### B PRESS TECHNICIAN, HS TROP, PT, CBC, BMP #### [address] Glucose [Mass/Vol] 161 mg/dL Normal The [facility] Comment on above: Result Comment: [place] [facility] Glucose Reference Range is dependent on time and content of last meal. Glucose of more than 200 mg/dL in a nonstressed, ambulatory subject supports the diagnosis of Diabetes Mellitus. Performed By: #### B PRESS TECHNICIAN, HS TROP, PT, CBC, BMP #### [address] Commemt1 Glu2: Cleaned Meter Normal The [facility] Comment on above: Result Comment: PERF ORMED BY: [place] [address] PATHOLOGIST [employer] SIMON LINTON M.D. Performed By: #### B PRESS TECHNICIAN, HS TROP, PT, CBC, BMP #### [address] Glucose [Mass/Vol] 99 mg/dL Normal The [facility] Comment on above: Result Comment: [place] [facility] Glucose Reference Range is dependent on time and content of last meal. Glucose of more than 200 mg/dL in a nonstressed, ambulatory subject supports the diagnosis of Diabetes Mellitus. Performed By: #### B PRESS TECHNICIAN, HS TROP, PT, CBC, BMP #### [address] No Panel InformationOrdered By: Chasity Castro on 07-30-2025 Glu2: cleaned meter [facility] BNP ser/plasOrdered By: Pilo Zavala on 07-29-2025 Natriuretic peptide B (Bld) [Mass/Vol] 709.0 pg/mL High 5-100 [facility] Comment on above: Result Comment: PERF ORMED BY: [place] [address] PATHOLOGIST [employer] SIMON LINTON M.D. Performed By: #### B PRESS TECHNICIAN, HS TROP, PT, CBC, BMP #### [address] Basic Metabolic Panelon 07-13 Creatinine Clr Calc Pharmacy 31.42 Normal [facility] Comment on above: Result Comment: PERF ORMED BY: [place] [address] PATHOLOGIST [employer] SIMON LINTON M.D. Performed By: #### B PRESS TECHNICIAN, HS TROP, PT, CBC, BMP #### [address] GFR/1.73 sq M.predicted MDRD (S/P/Bld) [Vol rate/Area] 27.569 mL/min/{1.73_m2} Normal The [facility] Comment on above: Performed By: #### B PRESS TECHNICIAN, HS TROP, PT, CBC, BMP #### [facility] [address] [place] [address] [place] Basophils [#/volume] in Bloo d by Automated countOrdered By: Jorge Luis Zavala on 07-29-2025 Basophils (Bld) [#/Vol] 0.1 10*3/uL Normal 0.0-0.2 [facility] Comment on above: Result Comment: PERF ORMED BY: [place] [address] PATHOLOGIST [employer]ON LINTON M.D. Performed By: #### B PRESS TECHNICIAN, HS TROP, PT, CBC, BMP #### [address] [place] [address] [place] Basophils/100 leukocytes in Blood by Automated countOrdered By: Jorge Luis Angle on 07-29-2025 Basophils/100 WBC (Bld) 1.3 % Normal . [facility] Comment on above: Performed By: #### B PRESS TECHNICIAN, HS TROP, PT, CBC, BMP #### [address] Calcium [Mass/volume] in Ser um or PlasmaOrdered By: Jorge Luis Zavala on 07-29-2025 Calcium [Mass/Vol] 8.1 mg/dL Low 8.6-10.3 [facility] Comment on above: Performed By: #### B PRESS TECHNICIAN, HS TROP, PT, CBC, BMP #### [address] Capillary blood glucose wander urement by glucometer (mass/volume)Ordered By: Jorge Luis Zavala on 07-29-2025 Glucose [Mass/Vol] 72 mg/dL Normal [facility] Comment on above: Result Comment: [facility] Glucose Reference Range is dependent on time and content of last meal. Glucose of more than 200 mg/dL in a nonstressed, ambulatory subject supports the diagnosis of Diabetes Mellitus. Performed By: #### B PRESS TECHNICIAN, HS TROP, PT, CBC, BMP #### [place] [address] [place] Carbon dioxide, total [Moles /volume] in Serum or PlasmaOrdered By: Jorge Luis Zavala on 07-29-2025 CO2 [Moles/Vol] 28.8 mmol/L Normal 21.0-31.0 [facility] Comment on above: Performed By: #### B PRESS TECHNICIAN, HS TROP, PT, CBC, BMP #### [place] [address] [place] Chloride [Moles/volume] in S oziel or PlasmaOrdered By: Jorge Luis Zavala on 07-29-2025 Chloride [Moles/Vol] 110 mmol/L High 98-107 [facility] Comment on above: Performed By: #### B PRESS TECHNICIAN, HS TROP, PT, CBC, BMP #### [address] Complete Blood Count Auto Di ffon 07-29-2025 Mean Corpuscular HGB Conc 32.6 g/dL Normal 32.0-35.0 [facility] Comment on above: Performed By: #### B PRESS TECHNICIAN, HS TROP, PT, CBC, BMP #### [place] [address] [place] Monocytes/100 WBC (Bld) 18.19 % Normal 0.00-20.00 [facility] Comment on above: Performed By: #### B PRESS TECHNICIAN, HS TROP, PT, CBC, BMP #### [place] [address] [place] NRBC% 0.1 /100{WBC} Normal 0-0.[address] [facility] Comment on above: Performed By: #### B PRESS TECHNICIAN, HS TROP, PT, CBC, BMP #### [address] White Blood Count 6.0 [CFU]/mL Normal 3.8-11.[address] [facility] Comment on above: Performed By: #### B PRESS TECHNICIAN, HS TROP, PT, CBC, BMP #### [address] Creatinine [Mass/volume] in Serum or PlasmaOrdered By: Jorge Luis Zavala on 07-29-2025 Creatinine [Mass/Vol] 1.84 mg/dL High 0.60-1.[address] [facility] Comment on above: Performed By: #### B PRESS TECHNICIAN, HS TROP, PT, CBC, BMP #### [place] [address] [place] ECG 12 lead ECGon 07-29-2025 ECG 12 lead ECG [facility] [place] [address] Electrocardiograph Report Signed Patient: Joe Call MR#: [id number] 0 : 1945 Acct:[id number] Age/Sex: 80 / F ADM Date: 07/29/25 Loc: ER Room: Type: [facility] ER Attending Dr: Ordering Provider: Jorge Luis [...] Jorge Luis Zavala DO 1327 Normal [facility] Eosinophils [#/volume] in Bl ood by Automated countOrdered By: Jorge Luis Zavala on 07-29-2025 Eosinophils (Bld) [#/Vol] 0.1 10*3/uL Normal 0.0-0.45 [facility] Comment on above: Performed By: #### B PRESS TECHNICIAN, HS TROP, PT, CBC, BMP #### [facility] [address] [place] [address] [place] Eosinophils/100 leukocytes i n Blood by Automated countOrdered By: Jorge Luis Zavala on 07-29-2025 Eosinophils/100 WBC (Bld) 1.7 % Normal . [facility] Comment on above: Performed By: #### B PRESS TECHNICIAN, HS TROP, PT, CBC, BMP #### [facility] [address] [place] [address] [place] Erythrocyte distribution wid th [Ratio] by Automated countOrdered By: Jorge Luis Zavala on 07-29-2025 Erythrocyte distribution width (RBC) [Ratio] 17.5 % High 11.9-15.3 [facility] Comment on above: Performed By: #### B PRESS TECHNICIAN, HS TROP, PT, CBC, BMP #### [facility] [address] [place] [address] [place] Erythrocytes [#/volume] in B lood by Automated countOrdered By: Jorge Luis Zavala on 07-29-2025 RBC (Bld) [#/Vol] 3.48 10*6/uL Low 3.60-5.00 [facility] Comment on above: Performed By: #### B PRESS TECHNICIAN, HS TROP, PT, CBC, BMP #### [facility] [address] Glomerular filtration rate [ Volume Rate/Area] in Serum, Plasma or Blood by CreatinineOrdered By: Jorge Luis Zavala on 07-29-2025 Glomerular filtration rate [Volume Rate/Area] in Serum, Plasma or Blood by Creatinine 27.569 mL/Min [facility] Glucose Poct Glucometerson 0 07-29-2025 Commemt1 Glu2: Cleaned Meter Normal The [facility] Comment on above: Result Comment: PERF ORMED BY: [place] [address] PATHOLOGIST [employer] SIMON LINTON M.D. Performed By: #### G LULS #### Point of Care testing , Glucose [Mass/Vol] 153 mg/dL Normal [facility] Comment on above: Result Comment: [place] [facility] Glucose Reference Range is dependent on time and content of last meal. Glucose of more than 200 mg/dL in a nonstressed, ambulatory subject supports the diagnosis of Diabetes Mellitus. Performed By: #### G LULS #### Point of Care testing , Commemt1 Glu2: Cleaned Meter Normal [facility] Comment on above: Result Comment: PERF ORMED BY: [place] [address] PATHOLOGIST [employer] LINTON M.D. Performed By: #### B PRESS TECHNICIAN, HS TROP, PT, CBC, BMP #### [facility] [address] [place] [address] [place] Glucose [Mass/volume] in Ser um or PlasmaOrdered By: Jorge Luis Zavala on 07-29-2025 Glucose [Mass/Vol] 85 mg/dL Normal 70-100 [facility] Comment on above: Result Comment: [place] [facility] Glucose Reference Range is dependent on time and content of last meal. Glucose of more than 200 mg/dL in a nonstressed, ambulatory subject supports the diagnosis of Diabetes Mellitus. ADA recommended reference range Performed By: #### B PRESS TECHNICIAN, HS TROP, PT, CBC, BMP #### [address] Hematocrit [Volume Fraction] of Blood by Automated countOrdered By: Jorge Luis Zavala on 07-29-2025 Hematocrit (Bld) [Volume fraction] 31.5 % Low 34.0-46.4 [facility] Comment on above: Performed By: #### B PRESS TECHNICIAN, HS TROP, PT, CBC, BMP #### [address] Hemoglobin [Mass/volume] in BloodOrdered By: Jorge Luis Zavala on 07-29-2025 Hemoglobin (Bld) [Mass/Vol] 10.3 g/dL Low 11.8-15.4 [facility] Comment on above: Performed By: #### B PRESS TECHNICIAN, HS TROP, PT, CBC, BMP #### [address] INR in Platelet poor plasma by Coagulation assayOrdered By: Jorge Luis Zavala on 07-29-2025 INR Coag (PPP) [Relative time] 1.4 {INR} [facility] Comment on above: Result Comment: INR Therapeutic [...] heart valves: 3 - 4.5 PERFORMED BY: [place] [address] PATHOLOGIST [employer]ON LINTON M.D. Performed By: #### B PRESS TECHNICIAN, HS TROP, PT, CBC, BMP #### [address] Leukocytes [#/volume] correc gali for nucleated erythrocytes in Blood by Automated counOrdered By: Jorge Luis Zavala on 07-29-2025 WBC corrected for nucl RBC Auto (Bld) [#/Vol] 6.0 10*3/uL 3.8-11.6 [facility] Leukocytes [#/volume] in Blo od by Automated countOrdered By: Jorge Luis Zavala on 07-29-2025 WBC (Bld) [#/Vol] 6.0 10*3/uL Normal 3.8-11.6 [facility] Comment on above: Performed By: #### B PRESS TECHNICIAN, HS TROP, PT, CBC, BMP #### [facility] [address] Lymphocytes [#/volume] in Bl ood by Automated countOrdered By: Jorge Luis Zavala on 07-29-2025 Lymphocytes (Bld) [#/Vol] 0.8 10*3/uL Low 1.00-4.8 [facility] Comment on above: Performed By: #### B PRESS TECHNICIAN, HS TROP, PT, CBC, BMP #### [facility] [address] [place] [address] [place] Lymphocytes/100 leukocytes i n Blood by Automated countOrdered By: Jorge Luis Zavala on 07-29-2025 Lymphocytes/100 WBC (Bld) 13.6 % Normal . [facility] Comment on above: Performed By: #### B PRESS TECHNICIAN, HS TROP, PT, CBC, BMP #### [address] MCH [Entitic mass] by Automa gali countOrdered By: Jorge Luis Zavala on 07-29-2025 MCH (RBC) [Entitic mass] 29.6 pg Normal 24.7-34.3 [facility] Comment on above: Performed By: #### B PRESS TECHNICIAN, HS TROP, PT, CBC, BMP #### [facility] [address] [place] [address] MCHC Auto (RBC) [Mass/Vol]Or dered By: Jorge Luis Zavala on 07-29-2025 MCHC (RBC) [Mass/Vol] 32.6 g/dL 32.0-35.[address] [facility] MCV [Entitic volume] by Auto mated countOrdered By: Jorge Luis Zavala on 07-29-2025 MCV (RBC) [Entitic vol] 90.7 fL Normal 80-100 [facility] Comment on above: Performed By: #### B PRESS TECHNICIAN, HS TROP, PT, CBC, BMP #### [facility] [address] Magnesium [Mass/volume] in S oziel or PlasmaOrdered By: Chasity Castro on 07-29-2025 Magnesium [Mass/Vol] 1.7 mg/dL Low 1.9-2.7 [facility] Comment on above: Order Comment: Abbie nt add Performed By: #### B PRESS TECHNICIAN, HS TROP, PT, CBC, BMP #### [facility] [address] Monocyte distribution width [Entitic volume] in Blood by AutomatedOrdered By: Jorge Luis Zavala on 07-29-2025 Monocyte distribution width Auto (Bld) [Entitic vol] 18.19 % 0.00-20.00 [facility] Monocytes [#/volume] in Bloo d by Automated countOrdered By: Jorge Luis Zavala on 07-29-2025 Monocytes (Bld) [#/Vol] 0.4 10*3/uL Normal 0.0-0.8 [facility] Comment on above: Performed By: #### B PRESS TECHNICIAN, HS TROP, PT, CBC, BMP #### [facility] [address] [place] [address] Monocytes/100 leukocytes in Blood by Automated countOrdered By: Jorge Luis Zavala on 07-29-2025 Monocytes/100 WBC (Bld) 7.4 % Normal . [facility] Comment on above: Performed By: #### B PRESS TECHNICIAN, HS TROP, PT, CBC, BMP #### [facility] [address] [place] [address] [place] Neutrophils [#/volume] in Bl ood by Automated countOrdered By: Jorge Luis Zavala on 07-29-2025 Neutrophils (Bld) [#/Vol] 4.5 10*3/uL Normal 1.8-7.7 [facility] [facility] Comment on above: Performed By: #### B PRESS TECHNICIAN, HS TROP, PT, CBC, BMP #### [facility] [address] [place] [address] [place] Neutrophils/100 leukocytes i n Blood by Automated countOrdered By: Jorge Luis Zavala on 07-29-2025 Neutrophils/100 WBC (Bld) 76.0 % Normal . [facility] Comment on above: Performed By: #### B PRESS TECHNICIAN, HS TROP, PT, CBC, BMP #### [facility] [address] No Panel InformationOrdered By: Jorge Luis Zavala on 07-29-2025 Glu2: cleaned meter [facility] 31.42 [facility] Nucleated erythrocytes [Pres ence] in Blood by Automated countOrdered By: Jorge Luis Zavala on 07-29-2025 Nucleated RBC Auto Ql (Bld) 0.1 /100{WBC} 0-0.5 [facility] Platelet mean volume [Entiti c volume] in Blood by Automated countOrdered By: Jorge Luis Zavala on 07-29-2025 Platelet mean volume (Bld) [Entitic vol] 9.0 fL Normal 6.3-10.7 [facility] Comment on above: Performed By: #### B PRESS TECHNICIAN, HS TROP, PT, CBC, BMP #### [address] Platelets [#/volume] in Bloo d by Automated countOrdered By: Jorge Luis Zavala on 07-29-2025 Platelets (Bld) [#/Vol] 218 10*3/uL Normal 150-450 [facility] Comment on above: Performed By: #### B PRESS TECHNICIAN, HS TROP, PT, CBC, BMP #### [address] Potassium [Moles/volume] in Serum or PlasmaOrdered By: Jorge Luis Zavala on 07-29-2025 Potassium [Moles/Vol] 5.1 mmol/L Normal 3.5-5.[address] [facility] Comment on above: Result Comment: Hemo lysis is present at a level that could interfere with the result. Contact lab if redraw is required Performed By: #### B PRESS TECHNICIAN, HS TROP, PT, CBC, BMP #### [address] Prothrombin time (PT)Ordered By: Jorge Luis Zavala on 07-29-2025 PT Coag (PPP) [Time] 15.8 s High 9.0-12.9 [facility] Comment on above: Result Comment: A he matocrit value greater than 55% may lead to inaccurate results in coagulation testing. Patients having hematocrit values >55% require a special collection tube for coagulation studies. Please contact the laboratory at [phone] for redraw instructions. Performed By: #### B PRESS TECHNICIAN, HS TROP, PT, CBC, BMP #### [address] Serum or plasma anion gap de terminationOrdered By: Jorge Luis Zavala on 07-29-2025 Anion gap [Moles/Vol] 9.3 mmol/L Normal 6.0-15.[address] [facility] Comment on above: Performed By: #### B PRESS TECHNICIAN, HS TROP, PT, CBC, BMP #### [address] Sodium [Moles/volume] in Ser um or PlasmaOrdered By: Jorge Luis Zavala on 07-29-2025 Sodium [Moles/Vol] 143 mmol/L Normal 136-145 [facility] Comment on above: Performed By: #### B PRESS TECHNICIAN, HS TROP, PT, CBC, BMP #### [address] Thyrotropin [Units/volume] i n Serum or PlasmaOrdered By: Chasity Castro on 07-29-2025 TSH Qn 8.18 m[IU]/L High 0.45-5.33 [facility] Comment on above: Order Comment: Comme nt add Result Comment: PERF ORMED BY: [place] [address] PATHOLOGIST [employer] SIMON LINTON M.D. Performed By: #### B PRESS TECHNICIAN, HS TROP, PT, CBC, BMP #### [address] Troponin I High Sensitivityo n 07-29-2025 Troponin I High Sensitivity 13 Normal 0-15 [facility] Comment on above: Result Comment: The Troponin units of report have been changed to meet the Chest Pain Accreditation requirement, element EC5.M1l2. Troponin units are changed from pg/ml to ng/L. Also, the decimal is removed and results are in whole numbers. PERFORMED BY: [place] [address] PATHOLOGIST [employer] SIMON LINTON M.D. Performed By: #### B PRESS TECHNICIAN, HS TROP, PT, CBC, BMP #### [facility] [address] [place] [address] Troponin I.cardiac [Mass/vol ume] in Serum or Plasma by Detection limit <= 0.01 ng/mLOrdered By: Jorge Luis Zavala on 07-29-2025 Troponin I.cardiac DL <= 0.01 ng/mL [Mass/Vol] 13 ng/L 0-15 [facility] Urea nitrogen [Mass/volume] in Serum or PlasmaOrdered By: Jorge Luis Zavala on 07-29-2025 Urea nitrogen [Mass/Vol] 51 mg/dL High 7-25 [facility] Comment on above: Performed By: #### B PRESS TECHNICIAN, HS TROP, PT, CBC, BMP #### [facility] [address] [place], [place] [id number] [place] X-ray reportOrdered By: Kirit Langston on 07-29-2025 Study report [facility] Work Phone: XR chest 2V*on 07-29-2025 XR chest 2V* [facility] Main [place] [id number] XRay Report Signed Patient: Joe Call MR#: [id number] 0 : 1945 Acct:[id number] Age/Sex: 80 / F ADM Date: 07/29/25 Loc: ER Room: Type: [facility] ER Attending Dr: Copies to: Jorge Luis [...] Langston M.D. 07/29/2025 11:43 AM Dictation Location: [place] [address] Transcribed By: [facility] 07/29/25 1143 Dictated By: Vargas Langston MD 07/29/25 1142 Signed By: 07/29/25 1143 Normal [facility] Glomerular filtration rate ( GFR) estimation in non- AmericanOrdered By: Monica Stewart on 07-23-2025 GFR/1.73 sq M.predicted among non-blacks MDRD (S/P/Bld) [Vol rate/Area] 30 mL/min/{1.73_m2} Low >=60 mL/min/1.73 m 2 [facility] No Panel InformationOrdered By: Monica Stewart on 07-23-2025 70.7 pg/mL 0.0-285.2 [facility] 25.0 [facility] 41.0 mg/dL High 7.0-18.0 [facility] 8.3 mg/dL Low 8.5-10.1 [facility] 109 mmol/L High 98-107 [facility] 27.5 mmol/L 21.0-32.0 [facility] 1.64 mg/dL High 0.55-1.02 [facility] 37 Low >=60 mL/min/1.73 m 2 [facility] 151 mg/dL High 74-106 [facility] 4.4 mmol/L 3.5-5.1 [facility] 144 mmol/L 136-145 [facility] Renin activityOrdered By: Ra mustapha Stewart on 07-23-2025 Renin (P) [Catalytic activity/Vol] 0.242 ng/mL/hr 0.167-5.380 [facility] Serum or plasma aldosterone measurement (mass/volume)Ordered By: Monica Stewart on 07-23-2025 Aldosterone [Mass/Vol] 2.6 ng/dL 0.0-30.0 [facility] Serum or plasma anion gap de terminationOrdered By: Monica Stewart on 07-23-2025 Anion gap [Moles/Vol] 11.9 mmol/L [facility] Serum or plasma free metanep hrine measurement (mass/volume)Ordered By: Monica Stewart on 07-23-2025 Metanephrine Free [Mass/Vol] <25.0 pg/mL 0.0-88.0 [facility] Basophils Auto (Bld) [#/Vol] Ordered By: Shantel Steven on 07-22-2025 Basophils (Bld) [#/Vol] 0.1 10 3/uL 0.0-0.1 [facility] Basophils/100 WBC Auto (Bld) Ordered By: Shantel Steven on 07-22-2025 Basophils/100 WBC (Bld) 1.0 % 0.2-2.0 [facility] Eosinophils/100 WBC Auto (Bl d)Ordered By: Shantel Steven on 07-22-2025 Eosinophils/100 WBC (Bld) 2.3 % 0.9-7.0 [facility] Erythrocyte distribution wid th Auto (RBC) [Ratio]Ordered By: Shantel Steven on 07-22-2025 Erythrocyte distribution width (RBC) [Ratio] 15.5 % High 11.0-15.0 [facility] Globulin Calc (S) [Mass/Vol] Ordered By: Analisa Bryant on 07-22-2025 Globulin (S) [Mass/Vol] 5.0 g/dL [facility] Glomerular filtration rate ( GFR) estimation in non- AmericanOrdered By: Analisa Bryant on 07-22-2025 GFR/1.73 sq M.predicted among non-blacks MDRD (S/P/Bld) [Vol rate/Area] 35 mL/min/{1.73_m2} Low >=60 mL/min/1.73 m 2 [facility] Hematocrit Auto (Bld) [Volum e fraction]Ordered By: Shantel Steven on 07-22-2025 Hematocrit (Bld) [Volume fraction] 32.6 % Low 36.0-48.0 [facility] Hemoglobin [Mass/volume] in BloodOrdered By: Shantel Steven on 07-22-2025 Hemoglobin (Bld) [Mass/Vol] 10.5 g/dL Low 12.0-16.0 [facility] Leukocytes [#/volume] correc gali for nucleated erythrocytes in Blood by Automated counOrdered By: Shantel Steven on 07-22-2025 WBC corrected for nucl RBC Auto (Bld) [#/Vol] 6.1 10 3/uL 4.0-11.0 [facility] Lymphocytes Auto (Bld) [#/Vo l]Ordered By: Shantel Steven on 07-22-2025 Lymphocytes (Bld) [#/Vol] 0.9 10 3/uL Low 1.2-3.8 [facility] Lymphocytes/100 WBC Auto (Bl d)Ordered By: Shantel Steven on 07-22-2025 Lymphocytes/100 WBC (Bld) 15.0 % Low 20.5-60.0 [facility] MCH Auto (RBC) [Entitic mass ]Ordered By: Shantel Steven on 07-22-2025 MCH (RBC) [Entitic mass] 29.7 pg 26.7-34.0 [facility] MCHC Auto (RBC) [Mass/Vol]Or dered By: Shantel Steven on 07-22-2025 MCHC (RBC) [Mass/Vol] 32.2 g/dL 29.9-35.[address] [facility] MCV Auto (RBC) [Entitic vol] Ordered By: Shantel Steven on 07-22-2025 MCV (RBC) [Entitic vol] 92.1 fL 81.0-99.0 [facility] Monocytes Auto (Bld) [#/Vol] Ordered By: Shantel Steven on 07-22-2025 Monocytes (Bld) [#/Vol] 0.5 10 3/uL 0.3-0.8 [facility] Monocytes/100 WBC Auto (Bld) Ordered By: Shantel Steven on 07-22-2025 Monocytes/100 WBC (Bld) 8.2 % 1.7-12.0 [facility] Neutrophils Auto (Bld) [#/Vo l]Ordered By: Shantel Steven on 07-22-2025 Neutrophils (Bld) [#/Vol] 4.5 10 3/uL 1.4-6.5 [facility] Neutrophils/100 WBC Auto (Bl d)Ordered By: Shantel Steven on 07-22-2025 Neutrophils/100 WBC (Bld) 73.3 % 43.0-75.0 [facility] No Panel InformationOrdered By: Shantel Steven on 07-22-2025 7408.0 pg/mL Critically high <=1800.0 [facility] 0.1 10 3/uL 0.0-0.7 [facility] 0.01 10 3/uL 0.00-0.03 [facility] 0.2 % 0.0-0.5 [facility] No Panel InformationOrdered By: Analisa Bryant on 07-22-2025 19.6 pg/mL 4.0-51.3 [facility] 2.1 g/dL Low 3.4-5.0 [facility] 137 U/L High 46-116 [facility] 15 U/L 14-59 [facility] 12 U/L Low 15-37 [facility] 26.9 [facility] 39.0 mg/dL High 7.0-18.0 [facility] 8.2 mg/dL Low 8.5-10.1 [facility] 109 mmol/L High 98-107 [facility] 26.1 mmol/L 21.0-32.0 [facility] 1.45 mg/dL High 0.55-1.02 [facility] 42 Low >=60 mL/min/1.73 m 2 [facility] 150 mg/dL High 74-106 [facility] 4.8 mmol/L 3.5-5.1 [facility] 143 mmol/L 136-145 [facility] 0.4 mg/dL 0.2-1.0 [facility] 7.1 g/dL 6.4-8.2 [facility] Platelet mean volume Auto (B ld) [Entitic vol]Ordered By: Shantel Steven on 07-22-2025 Platelet mean volume (Bld) [Entitic vol] 10.5 fL 9.5-13.5 [facility] Platelets Auto (Bld) [#/Vol] Ordered By: Shantel Steven on 07-22-2025 Platelets (Bld) [#/Vol] 200 10 3/uL 150-450 [facility] RBC Auto (Bld) [#/Vol]Ordere d By: Shantel Steven on 07-22-2025 RBC (Bld) [#/Vol] 3.54 10 6/uL Low 4.20-5.40 [facility] Serum or plasma albumin/glob ulin mass ratioOrdered By: Analisa Bryant on 07-22-2025 Albumin/Globulin [Mass ratio] 0.4 {ratio} [facility] Serum or plasma anion gap de terminationOrdered By: Analisa Bryant on 07-22-2025 Anion gap [Moles/Vol] 12.7 mmol/L [facility] Telephoneon 07-15-2025 Telephone [phone] Joe Call 1945 F Date [facility] Family History Problem Relation Age of Onset Heart disease Mother Heart attack Father Coronary artery disease Other Diabetes Other Polycystic kidney disease Other Family Status - Relation Status Age at Mother Father Sister Brother Other Normal [facility] Glomerular filtration rate ( GFR) estimation in non- AmericanOrdered By: Monica Stewart on 07-01-2025 GFR/1.73 sq M.predicted among non-blacks MDRD (S/P/Bld) [Vol rate/Area] 25 mL/min/{1.73_m2} Low >=60 mL/min/1.73 m 2 [facility] No Panel InformationOrdered By: Monica Stewart on 07-01-2025 18.5 [facility] 36.0 mg/dL High 7.0-18.0 [facility] 8.3 mg/dL Low 8.5-10.1 [facility] 106 mmol/L 98-107 [facility] 31.7 mmol/L 21.0-32.0 [facility] 1.95 mg/dL High 0.55-1.02 [facility] 30 Low >=60 mL/min/1.73 m 2 [facility] 189 mg/dL High 74-106 [facility] 3.6 mmol/L 3.5-5.1 [facility] 143 mmol/L 136-145 [facility] Serum or plasma anion gap de terminationOrdered By: Monica Stewart on 07-01-2025 Anion gap [Moles/Vol] 8.9 mmol/L [facility] Glomerular filtration rate ( GFR) estimation in non- AmericanOrdered By: Monica Stewart on 06-30-2025 GFR/1.73 sq M.predicted among non-blacks MDRD (S/P/Bld) [Vol rate/Area] 28 mL/min/{1.73_m2} Low >=60 mL/min/1.73 m 2 [facility] No Panel InformationOrdered By: Monica Stewart on 06-30-2025 19.5 [facility] 34.0 mg/dL High 7.0-18.0 [facility] 8.2 mg/dL Low 8.5-10.1 [facility] 106 mmol/L 98-107 [facility] 32.9 mmol/L High 21.0-32.0 [facility] 1.74 mg/dL High 0.55-1.02 [facility] 34 Low >=60 mL/min/1.73 m 2 [facility] 50 mg/dL Low 74-106 [facility] 3.2 mmol/L Low 3.5-5.1 [facility] 144 mmol/L 136-145 [facility] Serum or plasma anion gap de terminationOrdered By: Monica Stewart on 06-30-2025 Anion gap [Moles/Vol] 8.3 mmol/L [facility] Basophils Auto (Bld) [#/Vol] Ordered By: Monica Stewart on 06-29-2025 Basophils (Bld) [#/Vol] 0.1 10 3/uL 0.0-0.1 [facility] Basophils/100 WBC Auto (Bld) Ordered By: Monica Stewart on 06-29-2025 Basophils/100 WBC (Bld) 1.6 % 0.2-2.0 [facility] Eosinophils/100 WBC Auto (Bl d)Ordered By: Monica Stewart on 06-29-2025 Eosinophils/100 WBC (Bld) 2.4 % 0.9-7.0 [facility] Erythrocyte distribution wid th Auto (RBC) [Ratio]Ordered By: Monica Stewart on 06-29-2025 Erythrocyte distribution width (RBC) [Ratio] 16.1 % High 11.0-15.0 [facility] Globulin Calc (S) [Mass/Vol] Ordered By: Monica Stewart on 06-29-2025 Globulin (S) [Mass/Vol] 3.8 g/dL [facility] Glomerular filtration rate ( GFR) estimation in non- AmericanOrdered By: Monica Stewart on 06-29-2025 GFR/1.73 sq M.predicted among non-blacks MDRD (S/P/Bld) [Vol rate/Area] 37 mL/min/{1.73_m2} Low >=60 mL/min/1.73 m 2 [facility] Hematocrit Auto (Bld) [Volum e fraction]Ordered By: Monica Stewart on 06-29-2025 Hematocrit (Bld) [Volume fraction] 32.4 % Low 36.0-48.0 [facility] Hemoglobin [Mass/volume] in BloodOrdered By: Monica Stewart on 06-29-2025 Hemoglobin (Bld) [Mass/Vol] 10.2 g/dL Low 12.0-16.0 [facility] Leukocytes [#/volume] correc gali for nucleated erythrocytes in Blood by Automated counOrdered By: Monica Stewart on 06-29-2025 WBC corrected for nucl RBC Auto (Bld) [#/Vol] 5.7 10 3/uL 4.0-11.0 [facility] Lymphocytes Auto (Bld) [#/Vo l]Ordered By: Monica Stewart on 06-29-2025 Lymphocytes (Bld) [#/Vol] 1.2 10 3/uL 1.2-3.8 [facility] Lymphocytes/100 WBC Auto (Bl d)Ordered By: Monica Stewart on 06-29-2025 Lymphocytes/100 WBC (Bld) 20.6 % 20.5-60.0 [facility] MCH Auto (RBC) [Entitic mass ]Ordered By: Monica Stewart on 06-29-2025 MCH (RBC) [Entitic mass] 29.3 pg 26.7-34.0 [facility] MCHC Auto (RBC) [Mass/Vol]Or dered By: Monica Stewart on 06-29-2025 MCHC (RBC) [Mass/Vol] 31.5 g/dL 29.9-35.[address] [facility] MCV Auto (RBC) [Entitic vol] Ordered By: Monica Stewart on 06-29-2025 MCV (RBC) [Entitic vol] 93.1 fL 81.0-99.0 [facility] Monocytes Auto (Bld) [#/Vol] Ordered By: Monica Stewart on 06-29-2025 Monocytes (Bld) [#/Vol] 0.6 10 3/uL 0.3-0.8 [facility] Monocytes/100 WBC Auto (Bld) Ordered By: Monica Stewart on 06-29-2025 Monocytes/100 WBC (Bld) 10.1 % 1.7-12.0 [facility] Neutrophils Auto (Bld) [#/Vo l]Ordered By: Monica Stewart on 06-29-2025 Neutrophils (Bld) [#/Vol] 3.7 10 3/uL 1.4-6.5 [facility] Neutrophils/100 WBC Auto (Bl d)Ordered By: Monica Stewart on 06-29-2025 Neutrophils/100 WBC (Bld) 65.1 % 43.0-75.0 [facility] No Panel InformationOrdered By: Monica Stewart on 06-29-2025 0.1 10 3/uL 0.0-0.7 [facility] 0.01 10 3/uL 0.00-0.03 [facility] 0.2 % 0.0-0.5 [facility] 7998.0 pg/mL Critically high <=1800.0 [facility] 2.0 g/dL Low 3.4-5.0 [facility] 109 U/L 46-116 [facility] 17 U/L 14-59 [facility] 16 U/L 15-37 [facility] 22.5 [facility] 31.0 mg/dL High 7.0-18.0 [facility] 8.2 mg/dL Low 8.5-10.1 [facility] 109 mmol/L High 98-107 [facility] 31.7 mmol/L 21.0-32.0 [facility] 1.38 mg/dL High 0.55-1.02 [facility] 45 Low >=60 mL/min/1.73 m 2 [facility] 87 mg/dL 74-106 [facility] 3.7 mmol/L 3.5-5.1 [facility] 144 mmol/L 136-145 [facility] 0.6 mg/dL 0.2-1.0 [facility] 5.8 g/dL Low 6.4-8.2 [facility] Platelet mean volume Auto (B ld) [Entitic vol]Ordered By: Monica Stewart on 06-29-2025 Platelet mean volume (Bld) [Entitic vol] 10.2 fL 9.5-13.5 [facility] Platelets Auto (Bld) [#/Vol] Ordered By: Monica Stewart on 06-29-2025 Platelets (Bld) [#/Vol] 194 10 3/uL 150-450 [facility] RBC Auto (Bld) [#/Vol]Ordere d By: Monica Stewart on 06-29-2025 RBC (Bld) [#/Vol] 3.48 10 6/uL Low 4.20-5.40 [facility] Serum or plasma albumin/glob ulin mass ratioOrdered By: Monica Stewart on 06-29-2025 Albumin/Globulin [Mass ratio] 0.5 {ratio} [facility] Serum or plasma anion gap de terminationOrdered By: Monica Stewart on 06-29-2025 Anion gap [Moles/Vol] 7.0 mmol/L [facility] Basophils Auto (Bld) [#/Vol] Ordered By: Jarred Galan on 06-28-2025 Basophils (Bld) [#/Vol] 0.1 10 3/uL 0.0-0.1 [facility] Basophils/100 WBC Auto (Bld) Ordered By: Jarred Galan on 06-28-2025 Basophils/100 WBC (Bld) 1.2 % 0.2-2.0 [facility] Eosinophils/100 WBC Auto (Bl d)Ordered By: Jarred Galan on 06-28-2025 Eosinophils/100 WBC (Bld) 2.4 % 0.9-7.0 [facility] Erythrocyte distribution wid th Auto (RBC) [Ratio]Ordered By: Jarred Galan on 06-28-2025 Erythrocyte distribution width (RBC) [Ratio] 15.9 % High 11.0-15.0 [facility] Globulin Calc (S) [Mass/Vol] Ordered By: Jarred Galan on 06-28-2025 Globulin (S) [Mass/Vol] 5.1 g/dL [facility] Glomerular filtration rate ( GFR) estimation in non- AmericanOrdered By: Jarred Galan on 06-28-2025 GFR/1.73 sq M.predicted among non-blacks MDRD (S/P/Bld) [Vol rate/Area] 37 mL/min/{1.73_m2} Low >=60 mL/min/1.73 m 2 [facility] Hematocrit Auto (Bld) [Volum e fraction]Ordered By: Jarred Galan on 06-28-2025 Hematocrit (Bld) [Volume fraction] 34.9 % Low 36.0-48.0 [facility] Hemoglobin [Mass/volume] in BloodOrdered By: Jarred Galan on 06-28-2025 Hemoglobin (Bld) [Mass/Vol] 11.2 g/dL Low 12.0-16.0 [facility] Leukocytes [#/volume] correc gali for nucleated erythrocytes in Blood by Automated counOrdered By: Jarred Galan on 06-28-2025 WBC corrected for nucl RBC Auto (Bld) [#/Vol] 7.5 10 3/uL 4.0-11.0 [facility] Lymphocytes Auto (Bld) [#/Vo l]Ordered By: Jarred Galan on 06-28-2025 Lymphocytes (Bld) [#/Vol] 0.9 10 3/uL Low 1.2-3.8 [facility] Lymphocytes/100 WBC Auto (Bl d)Ordered By: Jarred Galan on 06-28-2025 Lymphocytes/100 WBC (Bld) 12.6 % Low 20.5-60.0 [facility] MCH Auto (RBC) [Entitic mass ]Ordered By: Jarred Galan on 06-28-2025 MCH (RBC) [Entitic mass] 29.5 pg 26.7-34.0 [facility] MCHC Auto (RBC) [Mass/Vol]Or dered By: Jarred Galan on 06-28-2025 MCHC (RBC) [Mass/Vol] 32.1 g/dL 29.9-35.[address] [facility] MCV Auto (RBC) [Entitic vol] Ordered By: Jarred Galan on 06-28-2025 MCV (RBC) [Entitic vol] 91.8 fL 81.0-99.0 [facility] Monocytes Auto (Bld) [#/Vol] Ordered By: Jarred Galan on 06-28-2025 Monocytes (Bld) [#/Vol] 0.6 10 3/uL 0.3-0.8 [facility] Monocytes/100 WBC Auto (Bld) Ordered By: Jarred Galan on 06-28-2025 Monocytes/100 WBC (Bld) 8.1 % 1.7-12.0 [facility] Neutrophils Auto (Bld) [#/Vo l]Ordered By: Jarred Galan on 06-28-2025 Neutrophils (Bld) [#/Vol] 5.6 10 3/uL 1.4-6.5 [facility] Neutrophils/100 WBC Auto (Bl d)Ordered By: Jarred Galan on 06-28-2025 Neutrophils/100 WBC (Bld) 75.6 % High 43.0-75.0 [facility] No Panel InformationOrdered By: Jarred Galan on 06-28-2025 NO [facility] SEEN #/LPF Abnormal NONE SEEN [facility] None Seen #/HPF NONE SEEN [facility] TRACE #/HPF Abnormal NONE SEEN [facility] Negative NEGATIVE [facility] SMALL Abnormal NEGATIVE [facility] CLEAR CLEAR [facility] LT. YELLOW YELLOW [facility] 100 mg/dL Abnormal NEGATIVE [facility] RARE [facility] TRACE Abnormal NONE SEEN [facility] 7.0 5.0-9.0 [facility] >=300 mg/dL Abnormal NEG/TRACE [facility] 5-10 #/HPF Abnormal 0-2 [facility] 1.020 1.005-1.025 [facility] FEW #/LPF Abnormal NONE/RARE [facility] 0.2 EU/dL 0.2-1.0 [facility] 0.2 10 3/uL 0.0-0.7 [facility] 0.01 10 3/uL 0.00-0.03 [facility] 0.1 % 0.0-0.5 [facility] 7158.0 pg/mL Critically high <=1800.0 [facility] 22.6 pg/mL 4.0-51.3 [facility] 2.2 g/dL Low 3.4-5.0 [facility] 104 U/L 46-116 [facility] 16 U/L 14-59 [facility] 21 U/L 15-37 [facility] 22.6 [facility] 31.0 mg/dL High 7.0-18.0 [facility] 8.4 mg/dL Low 8.5-10.1 [facility] 106 mmol/L 98-107 [facility] 30.7 mmol/L 21.0-32.0 [facility] 1.37 mg/dL High 0.55-1.02 [facility] 45 Low >=60 mL/min/1.73 m 2 [facility] 117 mg/dL High 74-106 [facility] 4.2 mmol/L 3.5-5.1 [facility] 143 mmol/L 136-145 [facility] 0.5 mg/dL 0.2-1.0 [facility] 7.3 g/dL 6.4-8.2 [facility] Platelet mean volume Auto (B ld) [Entitic vol]Ordered By: Jarred Galan on 06-28-2025 Platelet mean volume (Bld) [Entitic vol] 10.9 fL 9.5-13.5 [facility] Platelets Auto (Bld) [#/Vol] Ordered By: Jarred Galan on 06-28-2025 Platelets (Bld) [#/Vol] 158 10 3/uL 150-450 [facility] RBC Auto (Bld) [#/Vol]Ordere d By: Jarred Galan on 06-28-2025 RBC (Bld) [#/Vol] 3.80 10 6/uL Low 4.20-5.40 [facility] Serum or plasma albumin/glob ulin mass ratioOrdered By: Jarred Galan on 06-28-2025 Albumin/Globulin [Mass ratio] 0.4 {ratio} [facility] Serum or plasma anion gap de terminationOrdered By: Jarred Galan on 06-28-2025 Anion gap [Moles/Vol] 10.5 mmol/L [facility] Erythrocyte distribution wid th Auto (RBC) [Ratio]Ordered By: Outside Provider on 06-19-2025 Erythrocyte distribution width (RBC) [Ratio] 15.8 % High 11.0-15.0 [facility] Glomerular filtration rate ( GFR) estimation in non- AmericanOrdered By: Outside Provider on 06-19-2025 GFR/1.73 sq M.predicted among non-blacks MDRD (S/P/Bld) [Vol rate/Area] 27 mL/min/{1.73_m2} Low >=60 mL/min/1.73 m 2 [facility] Hematocrit Auto (Bld) [Volum e fraction]Ordered By: Outside Provider on 06-19-2025 Hematocrit (Bld) [Volume fraction] 33.5 % Low 36.0-48.0 [facility] Hemoglobin [Mass/volume] in BloodOrdered By: Outside Provider on 06-19-2025 Hemoglobin (Bld) [Mass/Vol] 11.0 g/dL Low 12.0-16.0 [facility] Leukocytes [#/volume] correc gali for nucleated erythrocytes in Blood by Automated counOrdered By: Outside Provider on 06-19-2025 WBC corrected for nucl RBC Auto (Bld) [#/Vol] 6.5 10 3/uL 4.0-11.0 [facility] MCH Auto (RBC) [Entitic mass ]Ordered By: Outside Provider on 06-19-2025 MCH (RBC) [Entitic mass] 30.1 pg 26.7-34.0 [facility] MCHC Auto (RBC) [Mass/Vol]Or dered By: Outside Provider on 06-19-2025 MCHC (RBC) [Mass/Vol] 32.8 g/dL 29.9-35.[address] [facility] MCV Auto (RBC) [Entitic vol] Ordered By: Outside Provider on 06-19-2025 MCV (RBC) [Entitic vol] 91.5 fL 81.0-99.0 [facility] No Panel InformationOrdered By: Outside Provider on 06-19-2025 9659.0 pg/mL Critically high <=1800.0 [facility] 29.7 pg/mL 4.0-51.3 [facility] 1.5 mg/dL Low 1.8-2.4 [facility] 17.7 [facility] 32.0 mg/dL High 7.0-18.0 [facility] 8.5 mg/dL 8.5-10.1 [facility] 106 mmol/L 98-107 [facility] 33.4 mmol/L High 21.0-32.0 [facility] 1.81 mg/dL High 0.55-1.02 [facility] 33 Low >=60 mL/min/1.73 m 2 [facility] 134 mg/dL High 74-106 [facility] 3.3 mmol/L Low 3.5-5.1 [facility] 145 mmol/L 136-145 [facility] Platelet mean volume Auto (B ld) [Entitic vol]Ordered By: Outside Provider on 06-19-2025 Platelet mean volume (Bld) [Entitic vol] 10.2 fL 9.5-13.5 [facility] Platelets Auto (Bld) [#/Vol] Ordered By: Outside Provider on 06-19-2025 Platelets (Bld) [#/Vol] 244 10 3/uL 150-450 [facility] RBC Auto (Bld) [#/Vol]Ordere d By: Outside Provider on 06-19-2025 RBC (Bld) [#/Vol] 3.66 10 6/uL Low 4.20-5.40 [facility] Serum or plasma anion gap de terminationOrdered By: Outside Provider on 06-19-2025 Anion gap [Moles/Vol] 8.9 mmol/L [facility] Alanine aminotransferase [En zymatic activity/volume] in Serum or PlasmaOrdered By: Shantel Steven on 06-15-2025 ALT [Catalytic activity/Vol] 11 U/L 7-52 [facility] Comment on above: Performed By: #### C MP #### [facility] [address] [place] [address] Albumin [Mass/volume] in Ser um or Plasma by Bromocresol green (BCG) dye binding methoOrdered By: Shantel Steven on 06-15-2025 Albumin BCG dye [Mass/Vol] 2.8 g/dL Low 3.5-5.7 [facility] Alkaline phosphatase [Enzyma tic activity/volume] in Serum or PlasmaOrdered By: Shantel Steven on 06-15-2025 ALP [Catalytic activity/Vol] 103 U/L 34-104 [facility] Comment on above: Result Comment: PERF ORMED BY: [place] [address] PATHOLOGIST [employer] SIMON LINTON M.D. Performed By: #### C MP #### [facility] [address] [place] [address] Aspartate aminotransferase [ Enzymatic activity/volume] in Serum or PlasmaOrdered By: Shantel Steven on 06-15-2025 AST [Catalytic activity/Vol] 13 U/L 13-39 [facility] Comment on above: Performed By: #### C MP #### [facility] [address] [place] [address] Bilirubin.total [Mass/volume ] in Serum or PlasmaOrdered By: Shantel Steven on 06-15-2025 Bilirubin [Mass/Vol] 0.5 mg/dL 0.3-1.0 [facility] Comment on above: Performed By: #### C MP #### [address] Calcium [Mass/volume] in Ser um or PlasmaOrdered By: Shantel Steven on 06-15-2025 Calcium [Mass/Vol] 8.3 mg/dL Low 8.6-10.3 [facility] Comment on above: Performed By: #### C MP #### [address] Carbon dioxide, total [Moles /volume] in Serum or PlasmaOrdered By: Shantel Steven on 06-15-2025 CO2 [Moles/Vol] 31.9 mmol/L High 21.0-31.0 [facility] Comment on above: Performed By: #### C MP #### [place] [address] [place] Chloride [Moles/volume] in S oziel or PlasmaOrdered By: Shantel Steven on 06-15-2025 Chloride [Moles/Vol] 103 mmol/L 98-107 [facility] Comment on above: Performed By: #### C MP #### [address] Comprehensive Metabolic Pane daniele 06-15-2025 Albumin [Mass/Vol] 2.8 g/dL Low 3.5-5.7 [facility] license [facility] Comment on above: Performed By: #### C MP #### [address] GFR/1.73 sq M.predicted MDRD (S/P/Bld) [Vol rate/Area] 38.841 mL/min/{1.73_m2} Normal [facility] Comment on above: Performed By: #### C MP #### [address] Creatinine [Mass/volume] in Serum or PlasmaOrdered By: Shantel Steven on 06-15-2025 Creatinine [Mass/Vol] 1.39 mg/dL High 0.60-1.[address] [facility] Comment on above: Performed By: #### C MP #### [address] Glucose [Mass/volume] in Ser um or PlasmaOrdered By: Shantel Steven on 06-15-2025 Glucose [Mass/Vol] 235 mg/dL High 70-100 [facility] Comment on above: Result Comment: [place] Glucose Reference Range is dependent on time and content of last meal. Glucose of more than 200 mg/dL in a nonstressed, ambulatory subject supports the diagnosis of Diabetes Mellitus. ADA recommended reference range Performed By: #### C MP #### [address] No Panel InformationOrdered By: Shantel Steven on 06-15-2025 38.841 mL/Min [facility] N/A [facility] Potassium [Moles/volume] in Serum or PlasmaOrdered By: Shantel Steven on 06-15-2025 Potassium [Moles/Vol] 3.7 mmol/L 3.5-5.[address] [facility] Comment on above: Performed By: #### C MP #### [address] Protein [Mass/volume] in Ser um or PlasmaOrdered By: Shantel Steven on 06-15-2025 Protein [Mass/Vol] 6.3 g/dL Low 6.4-8.9 [facility] Comment on above: Performed By: #### C MP #### [address] Serum globulin measurement b y calculation (mass/volume)Ordered By: Shantel Steven on 06-15-2025 Globulin (S) [Mass/Vol] 3.5 g/dL [facility] Comment on above: Performed By: #### C MP #### [address] Serum or plasma albumin/glob ulin mass ratioOrdered By: Shantel Steven on 06-15-2025 Albumin/Globulin [Mass ratio] 0.8 {ratio} [facility] Comment on above: Performed By: #### C MP #### [facility] [address] Serum or plasma anion gap de terminationOrdered By: Shantel Steven on 06-15-2025 Anion gap [Moles/Vol] 9.8 mmol/L 6.0-15.[address] [facility] Comment on above: Performed By: #### C MP #### [facility] [address] [place] [address] [place] Sodium [Moles/volume] in Ser um or PlasmaOrdered By: Shantel Steven on 06-15-2025 Sodium [Moles/Vol] 141 mmol/L 136-145 [facility] Comment on above: Performed By: #### C MP #### [facility] [address] [place] [address] Urea nitrogen [Mass/volume] in Serum or PlasmaOrdered By: Shantel Steven on 06-15-2025 Urea nitrogen [Mass/Vol] 31 mg/dL High 7-25 [facility] Comment on above: Performed By: #### C MP #### [facility] [address] [place] [address] Basophils Auto (Bld) [#/Vol] Ordered By: Osbaldo Marlow on 06-10-2025 Basophils (Bld) [#/Vol] 0.1 10 3/uL 0.0-0.1 [facility] Basophils/100 WBC Auto (Bld) Ordered By: Osbaldo Marlow on 06-10-2025 Basophils/100 WBC (Bld) 1.1 % 0.2-2.0 [facility] Eosinophils/100 WBC Auto (Bl d)Ordered By: Osbaldo Marlow on 06-10-2025 Eosinophils/100 WBC (Bld) 2.1 % 0.9-7.0 [facility] Erythrocyte distribution wid th Auto (RBC) [Ratio]Ordered By: Osbaldo Marlow on 06-10-2025 Erythrocyte distribution width (RBC) [Ratio] 16.4 % High 11.0-15.0 [facility] Estimated glomerular filtrat ion rate (GFR) non- AmericanOrdered By: Osbaldo Marlow on 06-10-2025 GFR/1.73 sq M.predicted among non-blacks MDRD (S/P/Bld) [Vol rate/Area] 27 mL/min/{1.73_m2} Low >=60 mL/min/1.73 m 2 [facility] Globulin Calc (S) [Mass/Vol] Ordered By: Osbaldo Marlow on 06-10-2025 Globulin (S) [Mass/Vol] 4.6 g/dL [facility] Hematocrit Auto (Bld) [Volum e fraction]Ordered By: Osbaldo Marlow on 06-10-2025 Hematocrit (Bld) [Volume fraction] 31.3 % Low 36.0-48.0 [facility] Hemoglobin [Mass/volume] in BloodOrdered By: Osbaldo Marlow on 06-10-2025 Hemoglobin (Bld) [Mass/Vol] 10.1 g/dL Low 12.0-16.0 [facility] Leukocytes [#/volume] correc gali for nucleated erythrocytes in Blood by Automated counOrdered By: Osbaldo Marlow on 06-10-2025 WBC corrected for nucl RBC Auto (Bld) [#/Vol] 9.0 10 3/uL 4.0-11.0 [facility] Lymphocytes Auto (Bld) [#/Vo l]Ordered By: Osbaldo Marlow on 06-10-2025 Lymphocytes (Bld) [#/Vol] 1.4 10 3/uL 1.2-3.8 [facility] Lymphocytes/100 WBC Auto (Bl d)Ordered By: Osbaldo Marlow on 06-10-2025 Lymphocytes/100 WBC (Bld) 15.0 % Low 20.5-60.0 [facility] MCH Auto (RBC) [Entitic mass ]Ordered By: Osbaldo Marlow on 06-10-2025 MCH (RBC) [Entitic mass] 29.6 pg 26.7-34.0 [facility] MCHC Auto (RBC) [Mass/Vol]Or dered By: Osbaldo Marlow on 06-10-2025 MCHC (RBC) [Mass/Vol] 32.3 g/dL 29.9-35.[address] [facility] MCV Auto (RBC) [Entitic vol] Ordered By: Osbaldo Marlow on 06-10-2025 MCV (RBC) [Entitic vol] 91.8 fL 81.0-99.0 [facility] Monocytes Auto (Bld) [#/Vol] Ordered By: Osbaldo Marlow on 06-10-2025 Monocytes (Bld) [#/Vol] 0.5 10 3/uL 0.3-0.8 [facility] Monocytes/100 WBC Auto (Bld) Ordered By: Osbaldo Marlow on 06-10-2025 Monocytes/100 WBC (Bld) 5.6 % 1.7-12.0 [facility] Neutrophils Auto (Bld) [#/Vo l]Ordered By: Osbaldo Marlow on 06-10-2025 Neutrophils (Bld) [#/Vol] 6.8 10 3/uL High 1.4-6.5 [facility] Neutrophils/100 WBC Auto (Bl d)Ordered By: Osbaldo Marlow on 06-10-2025 Neutrophils/100 WBC (Bld) 75.9 % High 43.0-75.0 [facility] No Panel InformationOrdered By: Osbaldo Marlow on 06-10-2025 2.0 mg/dL 1.8-2.4 [facility] 4.4 mg/dL 2.6-4.7 [facility] 1.7 g/dL Low 3.4-5.0 [facility] 0.2 10 3/uL 0.0-0.7 [facility] 96 U/L 46-116 [facility] 14 U/L 14-59 [facility] 15 U/L 15-37 [facility] 16.6 [facility] 0.03 10 3/uL 0.00-0.03 [facility] 30.0 mg/dL High 7.0-18.0 [facility] 0.3 % 0.0-0.5 [facility] 8.2 mg/dL Low 8.5-10.1 [facility] 108 mmol/L High 98-107 [facility] 30.5 mmol/L 21.0-32.0 [facility] 1.81 mg/dL High 0.55-1.02 [facility] 33 Low >=60 mL/min/1.73 m 2 [facility] 117 mg/dL High 74-106 [facility] 3.3 mmol/L Low 3.5-5.1 [facility] 146 mmol/L High 136-145 [facility] 0.4 mg/dL 0.2-1.0 [facility] 6.3 g/dL Low 6.4-8.2 [facility] Platelet mean volume Auto (B ld) [Entitic vol]Ordered By: Osbaldo Marlow on 06-10-2025 Platelet mean volume (Bld) [Entitic vol] 10.0 fL 9.5-13.5 [facility] Platelets Auto (Bld) [#/Vol] Ordered By: Osbaldo Marlow on 06-10-2025 Platelets (Bld) [#/Vol] 248 10 3/uL 150-450 [facility] RBC Auto (Bld) [#/Vol]Ordere d By: Osbaldo Marlow on 06-10-2025 RBC (Bld) [#/Vol] 3.41 10 6/uL Low 4.20-5.40 [facility] Serum or plasma albumin/glob ulin mass ratioOrdered By: Osbaldo Marlow on 06-10-2025 Albumin/Globulin [Mass ratio] 0.4 {ratio} [facility] Serum or plasma anion gap de terminationOrdered By: Osbaldo Marlow on 06-10-2025 Anion gap [Moles/Vol] 10.8 mmol/L [facility] Basophils Auto (Bld) [#/Vol] Ordered By: Osbaldo Marlow on 06-09-2025 Basophils (Bld) [#/Vol] 0.1 10 3/uL 0.0-0.1 [facility] Basophils/100 WBC Auto (Bld) Ordered By: Osbaldo Marlow on 06-09-2025 Basophils/100 WBC (Bld) 1.1 % 0.2-2.0 [facility] Eosinophils/100 WBC Auto (Bl d)Ordered By: Osbaldo Marlow on 06-09-2025 Eosinophils/100 WBC (Bld) 1.8 % 0.9-7.0 [facility] Erythrocyte distribution wid th Auto (RBC) [Ratio]Ordered By: Osbaldo Marlow on 06-09-2025 Erythrocyte distribution width (RBC) [Ratio] 15.9 % High 11.0-15.0 [facility] Estimated glomerular filtrat ion rate (GFR) non- AmericanOrdered By: Cheng Aviles on 06-09-2025 GFR/1.73 sq M.predicted among non-blacks MDRD (S/P/Bld) [Vol rate/Area] 33 mL/min/{1.73_m2} Low >=60 mL/min/1.73 m 2 [facility] Globulin Calc (S) [Mass/Vol] Ordered By: Cheng Aviles on 06-09-2025 Globulin (S) [Mass/Vol] 4.9 g/dL [facility] Hematocrit Auto (Bld) [Volum e fraction]Ordered By: Osbaldo Marlow on 06-09-2025 Hematocrit (Bld) [Volume fraction] 31.8 % Low 36.0-48.0 [facility] Hemoglobin [Mass/volume] in BloodOrdered By: Osbaldo Marlow on 06-09-2025 Hemoglobin (Bld) [Mass/Vol] 10.4 g/dL Low 12.0-16.0 [facility] Leukocytes [#/volume] correc gali for nucleated erythrocytes in Blood by Automated counOrdered By: Osbaldo Marlow on 06-09-2025 WBC corrected for nucl RBC Auto (Bld) [#/Vol] 8.3 10 3/uL 4.0-11.0 [facility] Lymphocytes Auto (Bld) [#/Vo l]Ordered By: Osbaldo Marlow on 06-09-2025 Lymphocytes (Bld) [#/Vol] 1.4 10 3/uL 1.2-3.8 [facility] Lymphocytes/100 WBC Auto (Bl d)Ordered By: Osbaldo Marlow on 06-09-2025 Lymphocytes/100 WBC (Bld) 17.3 % Low 20.5-60.0 [facility] MCH Auto (RBC) [Entitic mass ]Ordered By: Osbaldo Marlow on 06-09-2025 MCH (RBC) [Entitic mass] 29.3 pg 26.7-34.0 [facility] MCHC Auto (RBC) [Mass/Vol]Or dered By: Osbaldo Marlow on 06-09-2025 MCHC (RBC) [Mass/Vol] 32.7 g/dL 29.9-35.[address] [facility] MCV Auto (RBC) [Entitic vol] Ordered By: Osbaldo Marlow on 06-09-2025 MCV (RBC) [Entitic vol] 89.6 fL 81.0-99.0 [facility] Monocytes Auto (Bld) [#/Vol] Ordered By: Osbaldo Marlow on 06-09-2025 Monocytes (Bld) [#/Vol] 0.5 10 3/uL 0.3-0.8 [facility] Monocytes/100 WBC Auto (Bld) Ordered By: Osbaldo Marlow on 06-09-2025 Monocytes/100 WBC (Bld) 6.5 % 1.7-12.0 [facility] Neutrophils Auto (Bld) [#/Vo l]Ordered By: Osbaldo Marlow on 06-09-2025 Neutrophils (Bld) [#/Vol] 6.1 10 3/uL 1.4-6.5 [facility] Neutrophils/100 WBC Auto (Bl d)Ordered By: Osbaldo Marlow on 06-09-2025 Neutrophils/100 WBC (Bld) 72.9 % 43.0-75.0 [facility] No Panel InformationOrdered By: Osbaldo Marlow on 06-09-2025 1.3 mg/dL Low 1.8-2.4 [facility] 3.8 mg/dL 2.6-4.7 [facility] 0.2 10 3/uL 0.0-0.7 [facility] 0.03 10 3/uL 0.00-0.03 [facility] 0.4 % 0.0-0.5 [facility] No Panel InformationOrdered By: Cheng Aviles on 06-09-2025 1.7 g/dL Low 3.4-5.0 [facility] 104 U/L 46-116 [facility] 14 U/L 14-59 [facility] 13 U/L Low 15-37 [facility] 18.3 [facility] 28.0 mg/dL High 7.0-18.0 [facility] 8.1 mg/dL Low 8.5-10.1 [facility] 106 mmol/L 98-107 [facility] 29.8 mmol/L 21.0-32.0 [facility] 1.53 mg/dL High 0.55-1.02 [facility] 40 Low >=60 mL/min/1.73 m 2 [facility] 79 mg/dL 74-106 [facility] 2.7 mmol/L Critically low 3.5-5.1 [facility] 146 mmol/L High 136-145 [facility] 0.4 mg/dL 0.2-1.0 [facility] 6.6 g/dL 6.4-8.2 [facility] Platelet mean volume Auto (B ld) [Entitic vol]Ordered By: Osbaldo Marlow on 06-09-2025 Platelet mean volume (Bld) [Entitic vol] 11.2 fL 9.5-13.5 [facility] Platelets Auto (Bld) [#/Vol] Ordered By: Osbaldo Marlow on 06-09-2025 Platelets (Bld) [#/Vol] 222 10 3/uL 150-450 [facility] RBC Auto (Bld) [#/Vol]Ordere d By: Osbaldo Marlow on 06-09-2025 RBC (Bld) [#/Vol] 3.55 10 6/uL Low 4.20-5.40 [facility] Serum or plasma albumin/glob ulin mass ratioOrdered By: Cheng Aviles on 06-09-2025 Albumin/Globulin [Mass ratio] 0.3 {ratio} [facility] Serum or plasma anion gap de terminationOrdered By: Cheng Aviles on 06-09-2025 Anion gap [Moles/Vol] 12.9 mmol/L [facility] Basophils Auto (Bld) [#/Vol] Ordered By: Jarred Galan on 06-08-2025 Basophils (Bld) [#/Vol] 0.1 10 3/uL 0.0-0.1 [facility] Basophils/100 WBC Auto (Bld) Ordered By: Jarred Galan on 06-08-2025 Basophils/100 WBC (Bld) 1.2 % 0.2-2.0 [facility] Eosinophils/100 WBC Auto (Bl d)Ordered By: Jarred Galan on 06-08-2025 Eosinophils/100 WBC (Bld) 1.9 % 0.9-7.0 [facility] Erythrocyte distribution wid th Auto (RBC) [Ratio]Ordered By: Jarred Galan on 06-08-2025 Erythrocyte distribution width (RBC) [Ratio] 16.1 % High 11.0-15.0 [facility] Estimated glomerular filtrat ion rate (GFR) non- AmericanOrdered By: Jarred Galan on 06-08-2025 GFR/1.73 sq M.predicted among non-blacks MDRD (S/P/Bld) [Vol rate/Area] 29 mL/min/{1.73_m2} Low >=60 mL/min/1.73 m 2 [facility] Hematocrit Auto (Bld) [Volum e fraction]Ordered By: Jarred Galan on 06-08-2025 Hematocrit (Bld) [Volume fraction] 35.3 % Low 36.0-48.0 [facility] Hemoglobin [Mass/volume] in BloodOrdered By: Jarred Galan on 06-08-2025 Hemoglobin (Bld) [Mass/Vol] 11.4 g/dL Low 12.0-16.0 [facility] Leukocytes [#/volume] correc gali for nucleated erythrocytes in Blood by Automated counOrdered By: Jarred Galan on 06-08-2025 WBC corrected for nucl RBC Auto (Bld) [#/Vol] 8.5 10 3/uL 4.0-11.0 [facility] Lymphocytes Auto (Bld) [#/Vo l]Ordered By: Jarred Galan on 06-08-2025 Lymphocytes (Bld) [#/Vol] 1.1 10 3/uL Low 1.2-3.8 [facility] Lymphocytes/100 WBC Auto (Bl d)Ordered By: Jarred Galna on 06-08-2025 Lymphocytes/100 WBC (Bld) 13.3 % Low 20.5-60.0 [facility] MCH Auto (RBC) [Entitic mass ]Ordered By: Jarred Galan on 06-08-2025 MCH (RBC) [Entitic mass] 29.2 pg 26.7-34.0 [facility] MCHC Auto (RBC) [Mass/Vol]Or dered By: Jarred Galan on 06-08-2025 MCHC (RBC) [Mass/Vol] 32.3 g/dL 29.9-35.[address] [facility] MCV Auto (RBC) [Entitic vol] Ordered By: Jarred Galan on 06-08-2025 MCV (RBC) [Entitic vol] 90.3 fL 81.0-99.0 [facility] Monocytes Auto (Bld) [#/Vol] Ordered By: Jarred Galan on 06-08-2025 Monocytes (Bld) [#/Vol] 0.4 10 3/uL 0.3-0.8 [facility] Monocytes/100 WBC Auto (Bld) Ordered By: Jarred Galan on 06-08-2025 Monocytes/100 WBC (Bld) 5.2 % 1.7-12.0 [facility] Neutrophils Auto (Bld) [#/Vo l]Ordered By: Jarred Galan on 06-08-2025 Neutrophils (Bld) [#/Vol] 6.6 10 3/uL High 1.4-6.5 [facility] Neutrophils/100 WBC Auto (Bl d)Ordered By: Jarred Galan on 06-08-2025 Neutrophils/100 WBC (Bld) 78.2 % High 43.0-75.0 [facility] No Panel InformationOrdered By: Jarred Galan on 06-08-2025 SEEN #/LPF Abnormal NONE SEEN [facility] None Seen #/HPF None Seen [facility] TRACE #/HPF Abnormal NONE SEEN [facility] MODERATE [facility] CLEAR CLEAR [facility] LT. YELLOW YELLOW [facility] 250 mg/dL Abnormal NEGATIVE [facility] SMALL Abnormal NONE SEEN [facility] 6.5 5.0-9.0 [facility] >=300 mg/dL Abnormal NEG/TRACE [facility] 0-2 #/HPF 0-2 [facility] 1.020 1.005-1.025 [facility] FEW #/LPF Abnormal NONE/RARE [facility] RARE #/LPF Abnormal NONE SEEN [facility] 0.2 EU/dL 0.2-1.0 [facility] 2-5 #/HPF Abnormal NONE SEEN [facility] Negative NEGATIVE [facility] 63697.0 pg/mL Critically high <=1800.0 [facility] 26.7 pg/mL 4.0-51.3 [facility] 0.7 mmol/L 0.4-2.0 [facility] 17.8 [facility] 30.0 mg/dL High 7.0-18.0 [facility] 0.2 10 3/uL 0.0-0.7 [facility] 8.7 mg/dL 8.5-10.1 [facility] 105 mmol/L 98-107 [facility] 30.5 mmol/L 21.0-32.0 [facility] 1.69 mg/dL High 0.55-1.02 [facility] 0.02 10 3/uL 0.00-0.03 [facility] 35 Low >=60 mL/min/1.73 m 2 [facility] 0.2 % 0.0-0.5 [facility] 177 mg/dL High 74-106 [facility] 3.2 mmol/L Low 3.5-5.1 [facility] 144 mmol/L 136-145 [facility] Platelet mean volume Auto (B ld) [Entitic vol]Ordered By: Jarred Galan on 06-08-2025 Platelet mean volume (Bld) [Entitic vol] 9.8 fL 9.5-13.5 [facility] Platelets Auto (Bld) [#/Vol] Ordered By: Jarred Galan on 06-08-2025 Platelets (Bld) [#/Vol] 291 10 3/uL 150-450 [facility] RBC Auto (Bld) [#/Vol]Ordere d By: Jarred Galan on 06-08-2025 RBC (Bld) [#/Vol] 3.91 10 6/uL Low 4.20-5.40 [facility] Serum or plasma anion gap de terminationOrdered By: Jarred Galan on 06-08-2025 Anion gap [Moles/Vol] 11.7 mmol/L [facility] Urine Cultureon 06-02-2025 Bacteria identified Cx Nom (U) 50,000 colonies/ml mixed bacterial skin contaminants 2 Days PERFORMED BY: [place] [address] PATHOLOGIST [employer] SIMON LINTON M.D. Normal [facility] Comment on above: Performed By: #### B PRESS TECHNICIAN, HS TROP, PT, CBC, BMP #### [address] Urine cultureOrdered By: Alessia Steven on 06-02-2025 Bacteria identified Cx Nom (U) 2 Days [facility] Estimated glomerular filtrat ion rate (GFR) non- AmericanOrdered By: Monica Stewart on 05-31-2025 GFR/1.73 sq M.predicted among non-blacks MDRD (S/P/Bld) [Vol rate/Area] 31 mL/min/{1.73_m2} Low >=60 mL/min/1.73 m 2 [facility] No Panel InformationOrdered By: Monica Stewart on 05-31-2025 31.3 [facility] 50.0 mg/dL High 7.0-18.0 [facility] 8.2 mg/dL Low 8.5-10.1 [facility] 106 mmol/L 98-107 [facility] 26.2 mmol/L 21.0-32.0 [facility] 1.60 mg/dL High 0.55-1.02 [facility] 38 Low >=60 mL/min/1.73 m 2 [facility] 103 mg/dL 74-106 [facility] 3.8 mmol/L 3.5-5.1 [facility] 142 mmol/L 136-145 [facility] Serum or plasma anion gap de terminationOrdered By: Monica Stewart on 05-31-2025 Anion gap [Moles/Vol] 13.6 mmol/L [facility] Erythrocyte distribution wid th Auto (RBC) [Ratio]Ordered By: Monica Stewart on 05-30-2025 Erythrocyte distribution width (RBC) [Ratio] 17.2 % High 11.0-15.0 [facility] Estimated glomerular filtrat ion rate (GFR) non- AmericanOrdered By: Monica Stewart on 05-30-2025 GFR/1.73 sq M.predicted among non-blacks MDRD (S/P/Bld) [Vol rate/Area] 28 mL/min/{1.73_m2} Low >=60 mL/min/1.73 m 2 [facility] Hematocrit Auto (Bld) [Volum e fraction]Ordered By: Monica Stewart on 05-30-2025 Hematocrit (Bld) [Volume fraction] 32.9 % Low 36.0-48.0 [facility] Hemoglobin [Mass/volume] in BloodOrdered By: Monica Stewart on 05-30-2025 Hemoglobin (Bld) [Mass/Vol] 10.6 g/dL Low 12.0-16.0 [facility] Leukocytes [#/volume] correc gali for nucleated erythrocytes in Blood by Automated counOrdered By: Monica Stewart on 05-30-2025 WBC corrected for nucl RBC Auto (Bld) [#/Vol] 18.7 10 3/uL High 4.0-11.0 [facility] MCH Auto (RBC) [Entitic mass ]Ordered By: Monica Stewart on 05-30-2025 MCH (RBC) [Entitic mass] 29.7 pg 26.7-34.0 [facility] MCHC Auto (RBC) [Mass/Vol]Or dered By: Monica Stewart on 05-30-2025 MCHC (RBC) [Mass/Vol] 32.2 g/dL 29.9-35.[address] [facility] MCV Auto (RBC) [Entitic vol] Ordered By: Monica Stewart on 05-30-2025 MCV (RBC) [Entitic vol] 92.2 fL 81.0-99.0 [facility] No Panel InformationOrdered By: Monica Stewart on 05-30-2025 1.8 mg/dL 1.8-2.4 [facility] 26.4 [facility] 47.0 mg/dL High 7.0-18.0 [facility] 8.5 mg/dL 8.5-10.1 [facility] 106 mmol/L 98-107 [facility] 27.5 mmol/L 21.0-32.0 [facility] 1.78 mg/dL High 0.55-1.02 [facility] 33 Low >=60 mL/min/1.73 m 2 [facility] 97 mg/dL 74-106 [facility] 4.0 mmol/L 3.5-5.1 [facility] 143 mmol/L 136-145 [facility] Platelet mean volume Auto (B ld) [Entitic vol]Ordered By: Monica Stewart on 05-30-2025 Platelet mean volume (Bld) [Entitic vol] 10.3 fL 9.5-13.5 [facility] Platelets Auto (Bld) [#/Vol] Ordered By: Monica Stewart on 05-30-2025 Platelets (Bld) [#/Vol] 183 10 3/uL 150-450 [facility] RBC Auto (Bld) [#/Vol]Ordere d By: Monica Stewart on 05-30-2025 RBC (Bld) [#/Vol] 3.57 10 6/uL Low 4.20-5.40 [facility] Serum or plasma anion gap de terminationOrdered By: Monica Stewart on 05-30-2025 Anion gap [Moles/Vol] 13.5 mmol/L [facility] Basophils/100 WBC Manual cnt (Bld)Ordered By: Monica Stewart on 05-29-2025 Basophils/100 WBC (Bld) 0.0 % Low 0.2-2.0 [facility] Eosinophils/100 WBC Manual c nt (Bld)Ordered By: Monica Stewart on 05-29-2025 Eosinophils/100 WBC (Bld) 0.0 % Low 0.9-7.0 [facility] Erythrocyte distribution wid th Auto (RBC) [Ratio]Ordered By: Monica Stewart on 05-29-2025 Erythrocyte distribution width (RBC) [Ratio] 16.6 % High 11.0-15.0 [facility] Estimated glomerular filtrat ion rate (GFR) non- AmericanOrdered By: Monica Stewart on 05-29-2025 GFR/1.73 sq M.predicted among non-blacks MDRD (S/P/Bld) [Vol rate/Area] 33 mL/min/{1.73_m2} Low >=60 mL/min/1.73 m 2 [facility] Glucose mean value [Mass/vol ume] in Blood Estimated from glycated hemoglobinOrdered By: Monica Stewart on 05-29-2025 Average glucose Estimated from glycated hemoglobin (Bld) [Mass/Vol] 209 mg/dL [facility] Hematocrit Auto (Bld) [Volum e fraction]Ordered By: Monica Stewart on 05-29-2025 Hematocrit (Bld) [Volume fraction] 32.2 % Low 36.0-48.0 [facility] Hemoglobin A1c percentageOrd ered By: Monica Stewart on 05-29-2025 HbA1c (Bld) [Mass fraction] 8.9 % High 4.5-6.2 [facility] Hemoglobin [Mass/volume] in BloodOrdered By: Monica Stewart on 05-29-2025 Hemoglobin (Bld) [Mass/Vol] 10.6 g/dL Low 12.0-16.0 [facility] Leukocytes [#/volume] correc gali for nucleated erythrocytes in Blood by Automated counOrdered By: Monica Stewart on 05-29-2025 WBC corrected for nucl RBC Auto (Bld) [#/Vol] 19.8 10 3/uL High 4.0-11.0 [facility] MCH Auto (RBC) [Entitic mass ]Ordered By: Monica Stewart on 05-29-2025 MCH (RBC) [Entitic mass] 29.9 pg 26.7-34.0 [facility] MCHC Auto (RBC) [Mass/Vol]Or dered By: Monica Stewart on 05-29-2025 MCHC (RBC) [Mass/Vol] 32.9 g/dL 29.9-35.[address] [facility] MCV Auto (RBC) [Entitic vol] Ordered By: Monica Stewart on 05-29-2025 MCV (RBC) [Entitic vol] 91.0 fL 81.0-99.0 [facility] No Panel InformationOrdered By: Monica Stewart on 05-29-2025 1.2 mg/dL Low 1.8-2.4 [facility] 0.00 10 3/uL 0.00-0.70 [facility] 27.5 [facility] 42.0 mg/dL High 7.0-18.0 [facility] 8.3 mg/dL Low 8.5-10.1 [facility] 105 mmol/L 98-107 [facility] 0.59 10 3/uL Low 1.20-3.80 [facility] 28.4 mmol/L 21.0-32.0 [facility] 3.0 % Low 20.5-60.0 [facility] 1.53 mg/dL High 0.55-1.02 [facility] 1.18 10 3/uL High 0.30-0.80 [facility] 40 Low >=60 mL/min/1.73 m 2 [facility] 6.0 % 1.7-12.0 [facility] 18.01 10 3/uL High 1.4-6.5 [facility] 130 mg/dL High 74-106 [facility] 3.8 mmol/L 3.5-5.1 [facility] 143 mmol/L 136-145 [facility] Platelet mean volume Auto (B ld) [Entitic vol]Ordered By: Monica Stewart on 05-29-2025 Platelet mean volume (Bld) [Entitic vol] 10.3 fL 9.5-13.5 [facility] Platelets Auto (Bld) [#/Vol] Ordered By: Monica Stewart on 05-29-2025 Platelets (Bld) [#/Vol] 208 10 3/uL 150-450 [facility] RBC Auto (Bld) [#/Vol]Ordere d By: Monica Stewart on 05-29-2025 RBC (Bld) [#/Vol] 3.54 10 6/uL Low 4.20-5.40 [facility] Segmented neutrophils/100 WB C Manual cnt (Bld)Ordered By: Monica Stewart on 05-29-2025 Segmented neutrophils/100 WBC (Bld) 91.0 % High 43.0-75.0 [facility] Serum or plasma anion gap de terminationOrdered By: Monica Stewart on 05-29-2025 Anion gap [Moles/Vol] 13.4 mmol/L [facility] Basophils Auto (Bld) [#/Vol] Ordered By: Analisa Bryant on 05-28-2025 Basophils (Bld) [#/Vol] 0.1 10 3/uL 0.0-0.1 [facility] Basophils/100 WBC Auto (Bld) Ordered By: Analisa Bryant on 05-28-2025 Basophils/100 WBC (Bld) 1.3 % 0.2-2.0 [facility] Eosinophils/100 WBC Auto (Bl d)Ordered By: Analisa Bryant on 05-28-2025 Eosinophils/100 WBC (Bld) 3.3 % 0.9-7.0 [facility] Erythrocyte distribution wid th Auto (RBC) [Ratio]Ordered By: Analisa Bryant on 05-28-2025 Erythrocyte distribution width (RBC) [Ratio] 16.9 % High 11.0-15.0 [facility] Estimated glomerular filtrat ion rate (GFR) non- AmericanOrdered By: Analisa Bryant on 05-28-2025 GFR/1.73 sq M.predicted among non-blacks MDRD (S/P/Bld) [Vol rate/Area] 34 mL/min/{1.73_m2} Low >=60 mL/min/1.73 m 2 [facility] Hematocrit Auto (Bld) [Volum e fraction]Ordered By: Analisa Bryant on 05-28-2025 Hematocrit (Bld) [Volume fraction] 34.4 % Low 36.0-48.0 [facility] Hemoglobin [Mass/volume] in BloodOrdered By: Analisa Bryant on 05-28-2025 Hemoglobin (Bld) [Mass/Vol] 11.2 g/dL Low 12.0-16.0 [facility] Leukocytes [#/volume] correc gali for nucleated erythrocytes in Blood by Automated counOrdered By: Analisa Bryant on 05-28-2025 WBC corrected for nucl RBC Auto (Bld) [#/Vol] 6.9 10 3/uL 4.0-11.0 [facility] Lymphocytes Auto (Bld) [#/Vo l]Ordered By: Analisa Bryant on 05-28-2025 Lymphocytes (Bld) [#/Vol] 1.4 10 3/uL 1.2-3.8 [facility] Lymphocytes/100 WBC Auto (Bl d)Ordered By: Analisa Bryant on 05-28-2025 Lymphocytes/100 WBC (Bld) 20.0 % Low 20.5-60.0 [facility] MCH Auto (RBC) [Entitic mass ]Ordered By: Analisa Bryant on 05-28-2025 MCH (RBC) [Entitic mass] 29.7 pg 26.7-34.0 [facility] MCHC Auto (RBC) [Mass/Vol]Or dered By: Analisa Bryant on 05-28-2025 MCHC (RBC) [Mass/Vol] 32.6 g/dL 29.9-35.[address] [facility] MCV Auto (RBC) [Entitic vol] Ordered By: Analisa Bryant on 05-28-2025 MCV (RBC) [Entitic vol] 91.2 fL 81.0-99.0 [facility] Monocytes Auto (Bld) [#/Vol] Ordered By: Analisa Bryant on 05-28-2025 Monocytes (Bld) [#/Vol] 0.6 10 3/uL 0.3-0.8 [facility] Monocytes/100 WBC Auto (Bld) Ordered By: Analisa Bryant on 05-28-2025 Monocytes/100 WBC (Bld) 8.9 % 1.7-12.0 [facility] Neutrophils Auto (Bld) [#/Vo l]Ordered By: Analisa Bryant on 05-28-2025 Neutrophils (Bld) [#/Vol] 4.6 10 3/uL 1.4-6.5 [facility] Neutrophils/100 WBC Auto (Bl d)Ordered By: Analisa Bryant on 05-28-2025 Neutrophils/100 WBC (Bld) 66.4 % 43.0-75.0 [facility] No Panel InformationOrdered By: Analisa Bryant on 05-28-2025 NO [facility] SEEN #/LPF Abnormal NONE SEEN [facility] Seen #/HPF Abnormal None Seen [facility] RARE [facility] TRACE #/HPF Abnormal NONE SEEN [facility] Negative NEGATIVE [facility] SMALL Abnormal NEGATIVE [facility] CLEAR CLEAR [facility] LT. YELLOW YELLOW [facility] 100 mg/dL Abnormal NEGATIVE [facility] NONE SEEN NONE SEEN [facility] 7.0 5.0-9.0 [facility] >=300 mg/dL Abnormal NEG/TRACE [facility] 0-2 #/HPF Abnormal NONE SEEN [facility] 1.020 1.005-1.025 [facility] RARE #/LPF NONE/[facility] 0.2 EU/dL 0.2-1.0 [facility] 6395.0 pg/mL Critically high <=1800.0 [facility] 18.7 pg/mL 4.0-51.3 [facility] 32.4 [facility] 48.0 mg/dL High 7.0-18.0 [facility] 0.2 10 3/uL 0.0-0.7 [facility] 8.5 mg/dL 8.5-10.1 [facility] 107 mmol/L 98-107 [facility] 29.3 mmol/L 21.0-32.0 [facility] 1.48 mg/dL High 0.55-1.02 [facility] 0.01 10 3/uL 0.00-0.03 [facility] 41 Low >=60 mL/min/1.73 m 2 [facility] 0.1 % 0.0-0.5 [facility] 64 mg/dL Low 74-106 [facility] 4.1 mmol/L 3.5-5.1 [facility] 143 mmol/L 136-145 [facility] Platelet mean volume Auto (B ld) [Entitic vol]Ordered By: Analisa Bryant on 05-28-2025 Platelet mean volume (Bld) [Entitic vol] 10.0 fL 9.5-13.5 [facility] Platelets Auto (Bld) [#/Vol] Ordered By: Analisa Bryant on 05-28-2025 Platelets (Bld) [#/Vol] 236 10 3/uL 150-450 [facility] RBC Auto (Bld) [#/Vol]Ordere d By: Analisa Bryant on 05-28-2025 RBC (Bld) [#/Vol] 3.77 10 6/uL Low 4.20-5.40 [facility] Serum or plasma anion gap de terminationOrdered By: Analisa Bryant on 05-28-2025 Anion gap [Moles/Vol] 10.8 mmol/L [facility] Basophils Auto (Bld) [#/Vol] Ordered By: Cheng Aviles on 05-11-2025 Basophils (Bld) [#/Vol] 0.1 10 3/uL 0.0-0.1 [facility] Basophils/100 WBC Auto (Bld) Ordered By: Cheng Aviles on 05-11-2025 Basophils/100 WBC (Bld) 1.2 % 0.2-2.0 [facility] Eosinophils/100 WBC Auto (Bl d)Ordered By: Cheng Aviles on 05-11-2025 Eosinophils/100 WBC (Bld) 2.7 % 0.9-7.0 [facility] Erythrocyte distribution wid th Auto (RBC) [Ratio]Ordered By: Cheng Aviles on 05-11-2025 Erythrocyte distribution width (RBC) [Ratio] 15.7 % High 11.0-15.0 [facility] Estimated glomerular filtrat ion rate (GFR) non- AmericanOrdered By: Rica Kaplan on 05-11-2025 GFR/1.73 sq M.predicted among non-blacks MDRD (S/P/Bld) [Vol rate/Area] 36 mL/min/{1.73_m2} Low >=60 mL/min/1.73 m 2 [facility] Hematocrit Auto (Bld) [Volum e fraction]Ordered By: Cheng Aviles on 05-11-2025 Hematocrit (Bld) [Volume fraction] 34.2 % Low 36.0-48.0 [facility] Hemoglobin [Mass/volume] in BloodOrdered By: Cheng Aviles on 05-11-2025 Hemoglobin (Bld) [Mass/Vol] 10.9 g/dL Low 12.0-16.0 [facility] Laboratory - Chemistry and C hemistry - challengeOrdered By: Rica Kaplan on 05-11-2025 Calcium [Mass/Vol] 8.6 mg/dL 8.5-10.1 [facility] Chloride [Moles/Vol] 107 mmol/L 98-107 [facility] CO2 [Moles/Vol] 27.7 mmol/L 21.0-32.0 [facility] Creatinine [Mass/Vol] 1.40 mg/dL High 0.55-1.[address] [facility] GFR/1.73 sq M.predicted MDRD (S/P/Bld) [Vol rate/Area] 44 mL/min/{1.73_m2} Low >=60 mL/min/1.73 m 2 [facility] Glucose [Mass/Vol] 93 mg/dL 74-106 [facility] Potassium [Moles/Vol] 4.2 mmol/L 3.5-5.[address] [facility] Sodium [Moles/Vol] 144 mmol/L 136-145 [facility] Urea nitrogen [Mass/Vol] 34.0 mg/dL High 7.0-18.0 [facility] Urea nitrogen/Creatinine [Mass ratio] 24.3 mg/mg [facility] Laboratory - Hematology and Cell countsOrdered By: Cheng Aviles on 05-11-2025 Immature granulocytes/100 WBC (Bld) 0.4 % 0.0-0.5 [facility] Leukocytes [#/volume] correc gali for nucleated erythrocytes in Blood by Automated counOrdered By: Cheng Aviles on 05-11-2025 WBC corrected for nucl RBC Auto (Bld) [#/Vol] 8.5 10 3/uL 4.0-11.0 [facility] Lymphocytes Auto (Bld) [#/Vo l]Ordered By: Cheng Aviles on 05-11-2025 Lymphocytes (Bld) [#/Vol] 1.4 10 3/uL 1.2-3.8 [facility] Lymphocytes/100 WBC Auto (Bl d)Ordered By: Cheng Aviles on 05-11-2025 Lymphocytes/100 WBC (Bld) 16.0 % Low 20.5-60.0 [facility] MCH Auto (RBC) [Entitic mass ]Ordered By: Cheng Aviles on 05-11-2025 MCH (RBC) [Entitic mass] 28.5 pg 26.7-34.0 [facility] MCHC Auto (RBC) [Mass/Vol]Or dered By: Cheng Aviles on 05-11-2025 MCHC (RBC) [Mass/Vol] 31.9 g/dL 29.9-35.[address] [facility] MCV Auto (RBC) [Entitic vol] Ordered By: Cheng Aviles on 05-11-2025 MCV (RBC) [Entitic vol] 89.5 fL 81.0-99.0 [facility] Monocytes Auto (Bld) [#/Vol] Ordered By: Cheng Aviles on 05-11-2025 Monocytes (Bld) [#/Vol] 0.6 10 3/uL 0.3-0.8 [facility] Monocytes/100 WBC Auto (Bld) Ordered By: Cheng Aviles on 05-11-2025 Monocytes/100 WBC (Bld) 7.5 % 1.7-12.0 [facility] Neutrophils Auto (Bld) [#/Vo l]Ordered By: Cheng Aviles on 05-11-2025 Neutrophils (Bld) [#/Vol] 6.1 10 3/uL 1.4-6.5 [facility] Neutrophils/100 WBC Auto (Bl d)Ordered By: Cheng Aviles on 05-11-2025 Neutrophils/100 WBC (Bld) 72.2 % 43.0-75.0 [facility] No Panel InformationOrdered By: Cheng Aviles on 05-11-2025 Eosinophils # (Auto) 0.2 10 3/uL 0.0-0.[address] [facility] Immature Granulocyte # (Auto) 0.03 10 3/uL 0.00-0.03 [facility] 0.2 10 3/uL 0.0-0.7 [facility] 0.03 10 3/uL 0.00-0.03 [facility] 0.4 % 0.0-0.5 [facility] No Panel InformationOrdered By: Rica Kaplan on 05-11-2025 24.3 [facility] 34.0 mg/dL High 7.0-18.0 [facility] 8.6 mg/dL 8.5-10.1 [facility] 107 mmol/L 98-107 [facility] 27.7 mmol/L 21.0-32.0 [facility] 1.40 mg/dL High 0.55-1.02 [facility] 44 Low >=60 mL/min/1.73 m 2 [facility] 93 mg/dL 74-106 [facility] 4.2 mmol/L 3.5-5.1 [facility] 144 mmol/L 136-145 [facility] Platelet mean volume Auto (B ld) [Entitic vol]Ordered By: Cheng Aviles on 05-11-2025 Platelet mean volume (Bld) [Entitic vol] 10.0 fL 9.5-13.5 [facility] Platelets Auto (Bld) [#/Vol] Ordered By: Cheng Aviles on 05-11-2025 Platelets (Bld) [#/Vol] 279 10 3/uL 150-450 [facility] RBC Auto (Bld) [#/Vol]Ordere d By: Cheng Aviles on 05-11-2025 RBC (Bld) [#/Vol] 3.82 10 6/uL Low 4.20-5.40 [facility] Serum or plasma anion gap de terminationOrdered By: Rica Kaplan on 05-11-2025 Anion gap [Moles/Vol] 13.5 mmol/L [facility] Telephoneon 05-07-2025 Telephone [id number] Joe Call 1945 F Date Provider Department Center 05/07/2025 TerrellJavedRussellAMANDA DESHAWN [facility] Family History Problem Relation Age of Onset Heart disease Mother Heart attack Father Coronary artery disease Other Diabetes Other Polycystic kidney disease Other Family Status - Relation Status Age at Mother Father Sister Brother Other Normal [facility] Office Visiton 04-22-2025 Follow-up visit [id number] Joe Call 1945 Provider Department Center 04/22/2025 [facility] Family History Problem Relation Age of Onset Heart disease Mother Heart attack Father Coronary artery disease Other Diabetes Other Polycystic kidney disease Other Family Status - Relation Status Age at Mother Father Sister Brother Other Level of Service:34717 [place] OFFICE/OUTPATIENT ESTABLISHED HIGH MDM 40 MIN Normal [facility] Alanine aminotransferase [En zymatic activity/volume] in Serum or PlasmaOrdered By: Jorge Calix on 03-12-2025 ALT [Catalytic activity/Vol] Alanine aminotransferase [Enzymatic activity/volume] in Serum or Plasma [address] [place] [address] ALT [Catalytic activity/Vol] 9 U/L Normal [address] [place] [address] Comment on above: Performed By: #### C MP #### [address] Albumin [Mass/volume] in Ser um or Plasma by Bromocresol green (BCG) dye binding methoOrdered By: Jorge Calix on 03-12-2025 Albumin BCG dye [Mass/Vol] Albumin [Mass/volume] in Serum or Plasma by Bromocresol green (BCG) dye binding metho Low 3.5-5.7 [facility] Albumin BCG dye [Mass/Vol] 3.0 g/dL Low 3.5-5.7 [facility] Alkaline phosphatase [Enzyma tic activity/volume] in Serum or PlasmaOrdered By: Jorge Calix on 03-12-2025 ALP [Catalytic activity/Vol] Alkaline phosphatase [Enzymatic activity/volume] in Serum or Plasma 34-104 [facility] ALP [Catalytic activity/Vol] 104 U/L Normal 34-104 [facility] Comment on above: Performed By: #### C MP #### [address] Appearance of UrineOrdered B y: Jorge Calix on 03-12-2025 Appearance (U) Urine appearance Clear [facility] Appearance (U) Clear Normal Clear [facility] Comment on above: Order Comment: Name Collection Type:: Other Performed By: #### B PRESS TECHNICIAN, HS TROP, PT, CBC, BMP #### [address] Aspartate aminotransferase [ Enzymatic activity/volume] in Serum or PlasmaOrdered By: Jorge Calix on 03-12-2025 AST [Catalytic activity/Vol] Aspartate aminotransferase [Enzymatic activity/volume] in Serum or Plasma Low 1339 [facility] AST [Catalytic activity/Vol] 11 U/L [address] [facility] Comment on above: Performed By: #### C MP #### [address] BNP ser/plasOrdered By: Steven Calix on 03-12-2025 Natriuretic peptide B (Bld) [Mass/Vol] 773.0 pg/mL High 5-100 [facility] Comment on above: Result Comment: PERF ORMED BY: [place] [address] PATHOLOGIST [employer] MAY HYDE M.D. Performed By: #### B PRESS TECHNICIAN, HS TROP, PT, CBC, BMP #### [address] Bacteria [Presence] in Urine by AutomatedOrdered By: Jorge Calix on 03-12-2025 Bacteria Auto Ql (U) Bacteria [Presence] in Urine by Automated High None Seen [facility] Bacteria Auto Ql (U) 2+ [HPF] High None Seen [facility] Basic Metabolic Panelon Creatinine Clr Calc Pharmacy 35.31 Normal [facility] Comment on above: Performed By: #### C MP #### [address] Estimated GFR 31.389 mL/Min Normal [facility] Comment on above: Performed By: #### C MP #### [address] Basophils Auto (Bld) [#/Vol] Ordered By: Jorge Calix on 03-12-2025 Basophils (Bld) [#/Vol] Automated basophil count 0.0-0.2 [facility] Basophils [#/volume] in Bloo d by Automated countOrdered By: Jorge Calix on 03-12-2025 Basophils (Bld) [#/Vol] 0.1 10*3/uL Normal 0.0-0.2 [facility] Comment on above: Result Comment: PERF ORMED BY: [place] [address] PATHOLOGIST [employer] MAY HYDE M.D. Performed By: #### B PRESS TECHNICIAN, HS TROP, PT, CBC, BMP #### [address] Basophils/100 WBC Auto (Bld) Ordered By: Jorge Calix on 03-12-2025 Basophils/100 WBC (Bld) Automated basophil % . [facility] Basophils/100 leukocytes in Blood by Automated countOrdered By: Jorge Calix on 03-12-2025 Basophils/100 WBC (Bld) 0.8 % Normal . [facility] Comment on above: Performed By: #### B PRESS TECHNICIAN, HS TROP, PT, CBC, BMP #### [facility] [address] [place] [address] Bilirubin Test strip Ql (U)O rdered By: Jorge Calix on 03-12-2025 Bilirubin Ql (U) Bilirubin.total [Presence] in Urine by Test strip Negative [facility] Bilirubin Ql (U) Negative Negative [facility] Bilirubin.direct [Mass/volum e] in Serum or PlasmaOrdered By: Jorge Calix on 03-12-2025 Bilirubin.direct [Mass/Vol] Bilirubin.direct [Mass/volume] in Serum or Plasma 0.03-0.18 [facility] Bilirubin.direct [Mass/Vol] 0.10 mg/dL 0.03-0.18 [facility] Bilirubin.total [Mass/volume ] in Serum or PlasmaOrdered By: Jorge Calix on 03-12-2025 Bilirubin [Mass/Vol] Bilirubin.total [Mass/volume] in Serum or Plasma 0.3-1.0 [facility] Bilirubin [Mass/Vol] 0.5 mg/dL Normal 0.3-1.0 [facility] Comment on above: Performed By: #### C MP #### [address] Calcium [Mass/volume] in Ser um or PlasmaOrdered By: Jorge Calix on 03-12-2025 Calcium [Mass/Vol] Calcium [Mass/volume ] in Serum or Plasma Low 8.6-10.3 [facility] Calcium [Mass/Vol] 8.3 mg/dL Low 8.6-10.3 [facility] Comment on above: Performed By: #### C MP #### [address] Capillary blood glucose wander urement by glucometer (mass/volume)Ordered By: Jorge Calix on 03-12-2025 Glucose [Mass/Vol] 364 mg/dL Normal [facility] Comment on above: Random Glucose Refer ence Range is dependent on time and content of last meal. Glucose of more than 200 mg/dL in a nonstressed, ambulatory subject supports the diagnosis of Diabetes Mellitus. Result Comment: [place] Glucose Reference Range is dependent on time and content of last meal. Glucose of more than 200 mg/dL in a nonstressed, ambulatory subject supports the diagnosis of Diabetes Mellitus. PERFORMED BY: [address] [place] [address] PATHOLOGIST [employer] MAY HYDE M.D. Performed By: #### B PRESS TECHNICIAN, HS TROP, PT, CBC, BMP #### [address] Carbon dioxide, total [Moles /volume] in Serum or PlasmaOrdered By: Jorge Calix on 03-12-2025 CO2 [Moles/Vol] Carbon dioxide, tota l [Moles/volume] in Serum or Plasma High 21.0-31.0 [facility] CO2 [Moles/Vol] 37.0 mmol/L High 21.0-31.0 [facility] Comment on above: Performed By: #### C MP #### [address] Chloride [Moles/volume] in S oziel or PlasmaOrdered By: Jorge Calix on 03-12-2025 Chloride [Moles/Vol] Chloride [Moles/vol ume] in Serum or Plasma Low 98-107 [facility] Chloride [Moles/Vol] 89 mmol/L Low 98-107 [facility] Comment on above: Performed By: #### C MP #### [address] Color Auto (U)Ordered By: Amilcar Calix on 03-12-2025 Color (U) Color of Urine by Auto Yellow [facility] Color of Urine by AutoOrdere d By: Jorge Calix on 03-12-2025 Color (U) Light-yellow Normal Yellow [facility] Comment on above: Order Comment: Name Collection Type:: Other Performed By: #### B PRESS TECHNICIAN, HS TROP, PT, CBC, BMP #### [address] Complete Blood Count Auto Di ffon 03-12-2025 Mean Corpuscular HGB Conc 33.3 g/dL Normal 32.0-35.0 [facility] Comment on above: Performed By: #### B PRESS TECHNICIAN, HS TROP, PT, CBC, BMP #### [place] [address] [place] Monocytes/100 WBC (Bld) 18.66 % Normal 0.00-20.00 [facility] Comment on above: Performed By: #### B PRESS TECHNICIAN, HS TROP, PT, CBC, BMP #### [address] NRBC% 0.1 /100{WBC} Normal 0-0.[address] [facility] Comment on above: Performed By: #### B PRESS TECHNICIAN, HS TROP, PT, CBC, BMP #### [facility] [address] [id number] [place] Creatine kinase [Enzymatic a ctivity/volume] in Serum or PlasmaOrdered By: Jorge Calix on 03-12-2025 CK [Catalytic activity/Vol] Creatine kinase [Enzymatic activity/volume] in Serum or Plasma 30-223 [facility] CK [Catalytic activity/Vol] 57 U/L Normal 30-223 [facility] Comment on above: Performed By: #### B PRESS TECHNICIAN, HS TROP, PT, CBC, BMP #### [facility] [address] Creatinine [Mass/volume] in Serum or PlasmaOrdered By: Jorge Calix on 03-12-2025 Creatinine [Mass/Vol] Creatinine [Mass/v olume] in Serum or Plasma High 0.60-1.20 [facility] Creatinine [Mass/Vol] 1.66 mg/dL High 0.60-1.[address] [facility] Comment on above: Performed By: #### C MP #### [address] Dipstick and Microscopicon 0 03-12-2025 Bacteria,Urine 2+ High None Seen [facility] Comment on above: Order Comment: Name Collection Type:: Other Performed By: #### B PRESS TECHNICIAN, HS TROP, PT, CBC, BMP #### [place] [address] [place] Bilirubin,Urine Negative Normal Negative [facility] Comment on above: Order Comment: Name Collection Type:: Other Performed By: #### B PRESS TECHNICIAN, HS TROP, PT, CBC, BMP #### [place] [id number] [place] Glucose Ql (U) >= High Normal [facility] Comment on above: Order Comment: Name Collection Type:: Other Performed By: #### B PRESS TECHNICIAN, HS TROP, PT, CBC, BMP #### [facility] [address] [id number] [facility] Hyaline Casts,Urine 0-8 Normal 0-8 [facility] Comment on above: Order Comment: Name Collection Type:: Other Result Comment: PERF ORMED BY: [place] [address] PATHOLOGIST [employer] MAY HYDE M.D. Performed By: #### B PRESS TECHNICIAN, HS TROP, PT, CBC, BMP #### [place] [address] [place] Nitrite,Urine Negative Normal Negative [facility] Comment on above: Order Comment: Name Collection Type:: Other Performed By: #### B PRESS TECHNICIAN, HS TROP, PT, CBC, BMP #### [place] [address] [place] Occult Blood,Urine Negative Normal Negative [facility] Comment on above: Order Comment: Name Collection Type:: Other Result Comment: PERF ORMED BY: [place] [address] PATHOLOGIST [employer] MAY HYDE M.D. Performed By: #### B PRESS TECHNICIAN, HS TROP, PT, CBC, BMP #### [place] [address] [place] RBC,Urine 1-2 Normal 0-4 [facility] Comment on above: Order Comment: Name Collection Type:: Other Performed By: #### B PRESS TECHNICIAN, HS TROP, PT, CBC, BMP #### [place] [address] [place] Specificy [place],Urine 1.012 Normal 1.001-1.030 [facility] Comment on above: Order Comment: Name Collection Type:: Other Performed By: #### B PRESS TECHNICIAN, HS TROP, PT, CBC, BMP #### [place] [address] [place] Squamous Epithelial Cell,Urine 1-2 Normal 0-2 [facility] Comment on above: Order Comment: Name Collection Type:: Other Performed By: #### B PRESS TECHNICIAN, HS TROP, PT, CBC, BMP #### [place] [address] [place] Urobilinogen,Urine Normal Normal Normal The [facility] Comment on above: Order Comment: Name Collection Type:: Other Performed By: #### B PRESS TECHNICIAN, HS TROP, PT, CBC, BMP #### [address] WBC,Urine 3-4 Normal 0-4 [facility] Comment on above: Order Comment: Name Collection Type:: Other Performed By: #### B PRESS TECHNICIAN, HS TROP, PT, CBC, BMP #### [facility] [address] ECG 12 lead ECGon 03-12-2025 ECG 12 lead ECG [facility] Main [place] [address] [place] [address] Electrocardiograph Report Signed Patient: Joe Call MR#: [id number] 0 : 1945 Acct:[id number] Age/Sex: 79 / F ADM Date: 03/12/25 Loc: ER Room: Type: [facility] ER Attending Dr: Ordering Provider: Jorge Calix [...] 30 bpm Confirmed by Jorge Calix DO ([id number]) on 03/12/2025 6:57:40 PM Referred By: Electronically Signed By: Jorge Calix DO Transcribed By: MUS Signed By Jorge Calix DO 5 0597 Normal [facility] Eosinophils Auto (Bld) [#/Vo l]Ordered By: Jorge Calix on 03-12-2025 Eosinophils (Bld) [#/Vol] Automated eosinophil count 0.0-0.45 [facility] Eosinophils [#/volume] in Bl ood by Automated countOrdered By: Jorge Calix on 03-12-2025 Eosinophils (Bld) [#/Vol] 0.1 10*3/uL Normal 0.0-0.45 [facility] Comment on above: Performed By: #### B PRESS TECHNICIAN, HS TROP, PT, CBC, BMP #### [facility] [address] Eosinophils/100 WBC Auto (Bl d)Ordered By: Jorge Calix on 03-12-2025 Eosinophils/100 WBC (Bld) Automated eosinophil % . [facility] Eosinophils/100 leukocytes i n Blood by Automated countOrdered By: Jorge Claix on 03-12-2025 Eosinophils/100 WBC (Bld) 1.0 % Normal . [facility] Comment on above: Performed By: #### B PRESS TECHNICIAN, HS TROP, PT, CBC, BMP #### [address] Epithelial cells.squamous [# /area] in Urine sediment by Automated countOrdered By: Jorge Calix on 03-12-2025 Epithelial cells.squamous Auto (Urine sed) [#/Area] Epithelial cells.squamous [#/area] in Urine sediment by Automated count 0-2 [facility] Epithelial cells.squamous Auto (Urine sed) [#/Area] 1-2 [HPF] 0-2 [facility] Erythrocyte distribution wid th Auto (RBC) [Ratio]Ordered By: Jorge Calix on 03-12-2025 Erythrocyte distribution width (RBC) [Ratio] Erythrocyte distribution width [Ratio] by Automated count 11.9-15.3 [facility] Erythrocyte distribution wid th [Ratio] by Automated countOrdered By: Jorge Calix on 03-12-2025 Erythrocyte distribution width (RBC) [Ratio] 14.5 % Normal 11.9-15.3 [facility] Comment on above: Performed By: #### B PRESS TECHNICIAN, HS TROP, PT, CBC, BMP #### [address] Erythrocytes [#/area] in Uri ne sediment by Automated countOrdered By: Jorge Calix on 03-12-2025 RBC Auto (Urine sed) [#/Area] Erythrocytes [#/area] in Urine sediment by Automated count 0-4 [facility] RBC Auto (Urine sed) [#/Area] 1-2 [HPF] 0-4 [facility] Erythrocytes [#/volume] in B lood by Automated countOrdered By: Jorge Calix on 03-12-2025 RBC (Bld) [#/Vol] 4.33 10*6/uL Normal 3.60-5.00 [facility] Comment on above: Performed By: #### B PRESS TECHNICIAN, HS TROP, PT, CBC, BMP #### [facility] [address] Globulin Calc (S) [Mass/Vol] Ordered By: Jorge Calix on 03-12-2025 Globulin (S) [Mass/Vol] Serum globulin measurement by calculation (mass/volume) [facility] Glucose Glucometer (BldC) [M ass/Vol]Ordered By: Jorge Calix on 03-12-2025 Glucose [Mass/Vol] Capillary blood gluc ose measurement by glucometer (mass/volume) [facility] Glucose [Mass/volume] in Ser um or PlasmaOrdered By: Jorge Calix on 03-12-2025 Glucose [Mass/Vol] Glucose [Mass/volume ] in Serum or Plasma Critically high 70-100 [facility] Glucose [Mass/Vol] 520 mg/dL Off scale high 70-100 [facility] Comment on above: Critical Result Call [...] range Performed By: #### C MP #### [facility] [address] Glucose [Mass/volume] in Uri ne by Test stripOrdered By: Jorge Calix on 03-12-2025 Glucose Test strip (U) [Mass/Vol] Glucose [Mass/volume] in Urine by Test strip High Normal [facility] Glucose Test strip (U) [Mass/Vol] >=1000 mg/dL High Normal [facility] Hematocrit Auto (Bld) [Volum e fraction]Ordered By: Jorge Calix on 03-12-2025 Hematocrit (Bld) [Volume fraction] Hematocrit [Volume Fraction] of Blood by Automated count 34.0-46.4 [facility] Hematocrit [Volume Fraction] of Blood by Automated countOrdered By: Jorge Calix on 03-12-2025 Hematocrit (Bld) [Volume fraction] 38.3 % Normal 34.0-46.4 [facility] Comment on above: Performed By: #### B PRESS TECHNICIAN, HS TROP, PT, CBC, BMP #### [address] Hemoglobin Test strip Ql (U) Ordered By: Jorge Calix on 03-12-2025 Hemoglobin Ql (U) Hemoglobin [Presence ] in Urine by Test strip Negative [facility] Hemoglobin Ql (U) Negative Negative [facility] Hemoglobin [Mass/volume] in BloodOrdered By: Jorge Calix on 03-12-2025 Hemoglobin (Bld) [Mass/Vol] Hemoglobin [Mass/volume] in Blood 11.8-15.4 [facility] Hemoglobin (Bld) [Mass/Vol] 12.8 g/dL Normal 11.8-15.4 [facility] Comment on above: Performed By: #### B PRESS TECHNICIAN, HS TROP, PT, CBC, BMP #### [facility] [address] Hepatic Panelon 03-12-2025 Albumin [Mass/Vol] 3.0 g/dL Low 3.5-5.7 [facility] Comment on above: Performed By: #### C MP #### [address] Bilirubin,Indirect 0.4 mg/dL Normal [facility] Comment on above: Performed By: #### C MP #### [address] Bilirubin.indirect [Mass/Vol] 0.10 mg/dL Normal 0.03-0.18 [facility] Comment on above: Performed By: #### C MP #### [address] Hyaline casts [#/area] in Ur ine sediment by Automated countOrdered By: Jorge Calix on 03-12-2025 Hyaline casts Auto (Urine sed) [#/Area] Hyaline casts [#/area] in Urine sediment by Automated count 0-8 [facility] Hyaline casts Auto (Urine sed) [#/Area] 0-8 [LPF] 0-8 [facility] INR in Platelet poor plasma by Coagulation assayOrdered By: Jorge Calix on 03-12-2025 INR Coag (PPP) [Relative time] INR in Platelet poor plasma by Coagulation assay [facility] INR Coag (PPP) [Relative time] 1.7 {INR} Normal [facility] Comment on above: INR Therapeutic Rang [...] heart valves: 3 - 4.5 PERFORMED BY: [place] [address] PATHOLOGIST [employer] MAY HYDE M.D. Performed By: #### B PRESS TECHNICIAN, HS TROP, PT, CBC, BMP #### [address] Ketones Test strip Ql (U)Ord ered By: Jorge Calix on 03-12-2025 Ketones Ql (U) Ketones [Presence] i n Urine by Test strip Negative [facility] Ketones [Presence] in Urine by Test stripOrdered By: Jorge Calix on 03-12-2025 Ketones Ql (U) Negative Normal Negative [facility] Comment on above: Order Comment: Name Collection Type:: Other Performed By: #### B PRESS TECHNICIAN, HS TROP, PT, CBC, BMP #### [facility] [address] [place] [id number] [facility] Leukocyte esterase [Presence ] in Urine by Test stripOrdered By: Jorge Calix on 03-12-2025 Leukocyte esterase Test strip Ql (U) Leukocyte esterase [Presence] in Urine by Test strip Negative [facility] Leukocyte esterase Test strip Ql (U) Negative Normal Negative [facility] Comment on above: Order Comment: Name Collection Type:: Other Performed By: #### B PRESS TECHNICIAN, HS TROP, PT, CBC, BMP #### [facility] [address] [place] [id number] [facility] Leukocytes [#/area] in Urine sediment by Automated countOrdered By: Jorge Calix on 03-12-2025 WBC Auto (Urine sed) [#/Area] Leukocytes [#/area] in Urine sediment by Automated count 0-4 [facility] WBC Auto (Urine sed) [#/Area] 3-4 [HPF] 0-4 [facility] Leukocytes [#/volume] correc gali for nucleated erythrocytes in Blood by Automated counOrdered By: Jorge Calix on 03-12-2025 WBC corrected for nucl RBC Auto (Bld) [#/Vol] Leukocytes [#/volume] corrected for nucleated erythrocytes in Blood by Automated coun 3.8-11.6 [facility] WBC corrected for nucl RBC Auto (Bld) [#/Vol] 9.0 10*3/uL 3.8-11.6 [facility] Leukocytes [#/volume] in Blo od by Automated countOrdered By: Jorge Calix on 03-12-2025 WBC (Bld) [#/Vol] 9.0 10*3/uL Normal 3.8-11.6 [facility] Comment on above: Performed By: #### B PRESS TECHNICIAN, HS TROP, PT, CBC, BMP #### [address] Lymphocytes Auto (Bld) [#/Vo l]Ordered By: Jorge Calix on 03-12-2025 Lymphocytes (Bld) [#/Vol] Lymphocytes [#/volume] in Blood by Automated count 1.00-4.8 [facility] Lymphocytes [#/volume] in Bl ood by Automated countOrdered By: Jorge Calix on 03-12-2025 Lymphocytes (Bld) [#/Vol] 1.3 10*3/uL Normal 1.00-4.8 [facility] Comment on above: Performed By: #### B PRESS TECHNICIAN, HS TROP, PT, CBC, BMP #### [address] Lymphocytes/100 WBC Auto (Bl d)Ordered By: Jorge Calix on 03-12-2025 Lymphocytes/100 WBC (Bld) Lymphocytes/100 leukocytes in Blood by Automated count . [facility] Lymphocytes/100 leukocytes i n Blood by Automated countOrdered By: Jorge Calix on 03-12-2025 Lymphocytes/100 WBC (Bld) 14.2 % Normal . [facility] Comment on above: Performed By: #### B PRESS TECHNICIAN, HS TROP, PT, CBC, BMP #### [address] MCH Auto (RBC) [Entitic mass ]Ordered By: Jorge Calix on 03-12-2025 MCH (RBC) [Entitic mass] MCH [Entitic mass] by Automated count 24.7-34.3 [facility] MCH [Entitic mass] by Automa gali countOrdered By: Jorge Calix on 03-12-2025 MCH (RBC) [Entitic mass] 29.5 pg Normal 24.7-34.3 [facility] Comment on above: Performed By: #### B PRESS TECHNICIAN, HS TROP, PT, CBC, BMP #### [address] MCHC Auto (RBC) [Mass/Vol]Or dered By: Jorge Calix on 03-12-2025 MCHC (RBC) [Mass/Vol] MCHC [Mass/volume] by Automated count 32.0-35.0 [facility] MCHC (RBC) [Mass/Vol] 33.3 g/dL 32.0-35.[address] [facility] MCV Auto (RBC) [Entitic vol] Ordered By: Jorge Calix on 03-12-2025 MCV (RBC) [Entitic vol] MCV [Entitic volume] by Automated count 80-100 [facility] MCV [Entitic volume] by Auto mated countOrdered By: Jorge Calix on 03-12-2025 MCV (RBC) [Entitic vol] 88.4 fL Normal 80-100 [facility] Comment on above: Performed By: #### B PRESS TECHNICIAN, HS TROP, PT, CBC, BMP #### [facility] [address] [place] [address] Magnesium [Mass/volume] in S oziel or PlasmaOrdered By: Jorge Calix on 03-12-2025 Magnesium [Mass/Vol] Magnesium [Mass/vol ume] in Serum or Plasma Low 1.9-2.7 [facility] Magnesium [Mass/Vol] 1.1 mg/dL Low 1.9-2.7 [facility] Comment on above: Result Comment: PERF ORMED BY: [place] [address] PATHOLOGIST [employer] MAY HYDE M.D. Performed By: #### C MP #### [facility] [address] [place] [address] Monocyte distribution width [Entitic volume] in Blood by AutomatedOrdered By: Jorge Calix on 03-12-2025 Monocyte distribution width Auto (Bld) [Entitic vol] Monocyte distribution width [Entitic volume] in Blood by Automated 0.00-20.00 [facility] Monocyte distribution width Auto (Bld) [Entitic vol] 18.66 % 0.00-20.00 [facility] Monocytes Auto (Bld) [#/Vol] Ordered By: Jorge Calix on 03-12-2025 Monocytes (Bld) [#/Vol] Automated blood monocyte count 0.0-0.8 [facility] Monocytes [#/volume] in Bloo d by Automated countOrdered By: Jorge Calix on 03-12-2025 Monocytes (Bld) [#/Vol] 0.5 10*3/uL Normal 0.0-0.8 [facility] Comment on above: Performed By: #### B PRESS TECHNICIAN, HS TROP, PT, CBC, BMP #### [facility] [address] Monocytes/100 WBC Auto (Bld) Ordered By: Jorge Calix on 03-12-2025 Monocytes/100 WBC (Bld) Automated monocyte % . [facility] Monocytes/100 leukocytes in Blood by Automated countOrdered By: Jorge Calix on 03-12-2025 Monocytes/100 WBC (Bld) 5.9 % Normal . [facility] Comment on above: Performed By: #### B PRESS TECHNICIAN, HS TROP, PT, CBC, BMP #### [facility] [address] [place] [address] [place] Natriuretic peptide B [Mass/ Vol]Ordered By: Jorge Calix on 03-12-2025 Natriuretic peptide B (Bld) [Mass/Vol] BNP ser/plas High 5-100 [facility] Neutrophils Auto (Bld) [#/Vo l]Ordered By: Jorge Calix on 03-12-2025 Neutrophils (Bld) [#/Vol] Neutrophils [#/volume] in Blood by Automated count 1.8-7.7 [facility] Neutrophils [#/volume] in Bl ood by Automated countOrdered By: Jorge Calix on 03-12-2025 Neutrophils (Bld) [#/Vol] 7.0 10*3/uL Normal 1.8-7.7 [facility] Comment on above: Performed By: #### B PRESS TECHNICIAN, HS TROP, PT, CBC, BMP #### [facility] [address] Neutrophils/100 WBC Auto (Bl d)Ordered By: Jorge Calix on 03-12-2025 Neutrophils/100 WBC (Bld) Automated neutrophil % . [facility] Neutrophils/100 leukocytes i n Blood by Automated countOrdered By: Jorge Calix on 03-12-2025 Neutrophils/100 WBC (Bld) 78.1 % Normal . [facility] Comment on above: Performed By: #### B PRESS TECHNICIAN, HS TROP, PT, CBC, BMP #### [facility] [address] Nitrite Test strip Ql (U)Ord ered By: Jorge Calix on 03-12-2025 Nitrite Ql (U) Nitrite [Presence] i n Urine by Test strip Negative [facility] Nitrite Ql (U) Negative Negative [facility] No Panel InformationOrdered By: Jorge Calix on 03-12-2025 Estimated GFR (CKD-EPI) 31.389 mL/Min [facility] Creatinine Clearance (Chem 35.31 [facility] 31.389 mL/Min [facility] 35.31 [facility] Nucleated erythrocytes [Pres ence] in Blood by Automated countOrdered By: Jorge Calix on 03-12-2025 Nucleated RBC Auto Ql (Bld) Nucleated erythrocytes [Presence] in Blood by Automated count 0-0.5 [facility] Nucleated RBC Auto Ql (Bld) 0.1 /100{WBC} 0-0.5 [facility] Platelet mean volume Auto (B ld) [Entitic vol]Ordered By: Jorge Calix on 03-12-2025 Platelet mean volume (Bld) [Entitic vol] Platelet mean volume [Entitic volume] in Blood by Automated count 6.3-10.7 [facility] Platelet mean volume [Entiti c volume] in Blood by Automated countOrdered By: Jorge Calix on 03-12-2025 Platelet mean volume (Bld) [Entitic vol] 9.6 fL Normal 6.3-10.7 [facility] Comment on above: Performed By: #### B PRESS TECHNICIAN, HS TROP, PT, CBC, BMP #### [facility] [address] [place] [address] [place] Platelets Auto (Bld) [#/Vol] Ordered By: Jorge Calix on 03-12-2025 Platelets (Bld) [#/Vol] Platelets [#/volume] in Blood by Automated count 150-450 [facility] Platelets [#/volume] in Bloo d by Automated countOrdered By: Jorge Calix on 03-12-2025 Platelets (Bld) [#/Vol] 194 10*3/uL Normal 150-450 [facility] Comment on above: Performed By: #### B PRESS TECHNICIAN, HS TROP, PT, CBC, BMP #### [facility] [address] Potassium [Moles/volume] in Serum or PlasmaOrdered By: Jorge Calix on 03-12-2025 Potassium [Moles/Vol] Potassium [Moles/v olume] in Serum or Plasma 3.5-5.1 [facility] Potassium [Moles/Vol] 4.0 mmol/L Normal 3.5-5.[address] [facility] Comment on above: Performed By: #### C MP #### [address] Protein Test strip (U) [Mass /Vol]Ordered By: Jorge Calix on 03-12-2025 Protein (U) [Mass/Vol] Protein [Mass/vol ume] in Urine by Test strip High Negative [facility] Protein [Mass/volume] in Ser um or PlasmaOrdered By: Jorge Calix on 03-12-2025 Protein [Mass/Vol] Protein [Mass/volume ] in Serum or Plasma 6.4-8.9 [facility] Protein [Mass/Vol] 7.0 g/dL Normal 6.4-8.9 [facility] Comment on above: Performed By: #### C MP #### [address] Protein [Mass/volume] in Uri ne by Test stripOrdered By: Jorge Calix on 03-12-2025 Protein (U) [Mass/Vol] 200 mg/dL High Negative [facility] Comment on above: Order Comment: Name Collection Type:: Other Performed By: #### B PRESS TECHNICIAN, HS TROP, PT, CBC, BMP #### [address] Prothrombin time (PT)Ordered By: Jorge Calix on 03-12-2025 PT Coag (PPP) [Time] Prothrombin time (PT) High 9.0- 12.9 [facility] PT Coag (PPP) [Time] 19.3 s High 9.0-12.9 [facility] Comment on above: A hematocrit value g reater than 55% may lead to inaccurate results in coagulation testing. Patients having hematocrit values >55% require a special collection tube for coagulation studies. Please contact the laboratory at [phone] for redraw instructions. Result Comment: A he matocrit value greater than 55% may lead to inaccurate results in coagulation testing. Patients having hematocrit values >55% require a special collection tube for coagulation studies. Please contact the laboratory at [phone] for redraw instructions. Performed By: #### B PRESS TECHNICIAN, HS TROP, PT, CBC, BMP #### [address] RBC Auto (Bld) [#/Vol]Ordere d By: Jorge Calix on 03-12-2025 RBC (Bld) [#/Vol] Erythrocytes [#/volu me] in Blood by Automated count 3.60-5.00 [facility] Serum globulin measurement b y calculation (mass/volume)Ordered By: Jorge Calix on 03-12-2025 Globulin (S) [Mass/Vol] 4.0 g/dL Normal [facility] Comment on above: Performed By: #### C MP #### [facility] [address] [place] [address] Serum or plasma albumin/glob ulin mass ratioOrdered By: Jorge Calix on 03-12-2025 Albumin/Globulin [Mass ratio] Serum or plasma albumin/globulin mass ratio [facility] Albumin/Globulin [Mass ratio] 0.8 {ratio} Normal [facility] Comment on above: Performed By: #### C MP #### [address] Serum or plasma anion gap de terminationOrdered By: Jorge Calix on 03-12-2025 Anion gap [Moles/Vol] Serum or plasma an ion gap determination 6.0-15.0 [facility] Anion gap [Moles/Vol] 12.0 mmol/L Normal 6.0-15.0 [facility] Comment on above: Performed By: #### C MP #### [address] Serum or plasma non-glucuron idated bilirubin measurement (mass/volume)Ordered By: Jorge Calix on 03-12-2025 Bilirubin.indirect [Mass/Vol] Serum or plasma non-glucuronidated bilirubin measurement (mass/volume) [facility] Bilirubin.indirect [Mass/Vol] 0.4 mg/dL [facility] Sodium [Moles/volume] in Ser um or PlasmaOrdered By: Jorge Calix on 03-12-2025 Sodium [Moles/Vol] Sodium [Moles/volume ] in Serum or Plasma Low 136-145 [facility] Sodium [Moles/Vol] 134 mmol/L Low 136-145 [facility] Comment on above: Performed By: #### C MP #### [address] Specific gravity Test strip (U) [Rel density]Ordered By: Jorge Calix on 03-12-2025 Specific gravity (U) [Rel density] Specific gravity of Urine by Test strip 1.001-1.030 [facility] Specific gravity (U) [Rel density] 1.012 1.001-1.030 [facility] Troponin I High Sensitivityo n 03-12-2025 Troponin I High Sensitivity 46 High 0-15 [facility] Comment on above: Result Comment: The Troponin units of report have been changed to meet the Chest Pain Accreditation requirement, element EC5.M1l2. Troponin units are changed from pg/ml to ng/L. Also, the decimal is removed and results are in whole numbers. PERFORMED BY: [place] [address] PATHOLOGIST [employer] MAY HYDE M.D. Performed By: #### B PRESS TECHNICIAN, HS TROP, PT, CBC, BMP #### [address] Troponin I.cardiac [Mass/vol ume] in Serum or Plasma by Detection limit <= 0.01 ng/Ordered By: Jorge Calix on 03-12-2025 Troponin I.cardiac DL <= 0.01 ng/mL [Mass/Vol] Troponin I.cardiac [Mass/volume] in Serum or Plasma by Detection limit <= 0.01 ng/ High [address] [place] [address] Troponin I.cardiac [Mass/vol ume] in Serum or Plasma by Detection limit <= 0.01 ng/mLOrdered By: Jorge Calix on 03-12-2025 Troponin I.cardiac DL <= 0.01 ng/mL [Mass/Vol] 46 ng/L High 015 [facility] Comment on above: The Troponin units o f report have been changed to meet the Chest Pain Accreditation requirement, element EC5.M1l2. Troponin units are changed from pg/ml to ng/L. Also, the decimal is removed and results are in whole numbers. Urea nitrogen [Mass/volume] in Serum or PlasmaOrdered By: Jorge Calix on 03-12-2025 Urea nitrogen [Mass/Vol] Urea nitrogen [Mass/volume] in Serum or Plasma [address] Urea nitrogen [Mass/Vol] 41 mg/dL [address] Comment on above: Performed By: #### C MP #### [facility] [address] Urobilinogen Test strip (U) [Mass/Vol]Ordered By: Jorge Calix on 03-12-2025 Urobilinogen (U) [Mass/Vol] Urobilinogen [Mass/volume] in Urine by Test strip Normal [facility] Urobilinogen (U) [Mass/Vol] Normal mg/dL Normal [facility] WBC Auto (Bld) [#/Vol]Ordere d By: Jorge Calix on 03-12-2025 WBC (Bld) [#/Vol] Leukocytes [#/volume ] in Blood by Automated count 3.8-11.6 [facility] X-ray reportOrdered By: Kirit Langston on 03-12-2025 Study report [facility] Work Phone: XR chest 1V portableon 03-12 XR chest 1V portable [facility] [place] [address] [place] [address] XRay Report Signed Patient: Joe Call MR#: [id number] 0 : 1945 Acct:[id number] Age/Sex: 79 / F ADM Date: 03/12/25 Loc: ER Room: Type: [facility] ER Attending Dr: Copies to: Jorge Calix [...] Langston M.D. 03/12/2025 3:34 PM Dictation Location: [place] [address] Transcribed By: [facility] 03/12/25 1534 Dictated By: Vargas Langston MD 03/12/25 1532 Signed By: 03/12/25 1534 Normal [facility] pH Test strip (U)Ordered By: Jorge Calix on 03-12-2025 pH (U) pH of Urine by Test strip 5.0-9.0 [facility] pH of Urine by Test stripOrd ered By: Jorge Calix on 03-12-2025 pH (U) 7.0 [pH] Normal 5.0-9.0 [facility] Comment on above: Order Comment: Name Collection Type:: Other Performed By: #### B PRESS TECHNICIAN, HS TROP, PT, CBC, BMP #### [place] [id number] [facility] Cholesterol in LDL Calc [Mas s/Vol]on 03-02-2025 Cholesterol in LDL [Mass/Vol] Cholesterol in LDL [Mass/volume] in Serum or Plasma by calculation [facility] Comment on above: <100 mg/dl [id number] 0-129 mg/dl NEAR OR ABOVE [id number] mg/dl BORDERLINE [id number] mg/dl HIGH>190 mg/dl VERY HIGH Cholesterol in LDL [Mass/Vol] 55.6 mg/dL [facility] Comment on above: <100 mg/dl [id number] 0-129 mg/dl NEAR OR ABOVE [id number] mg/dl BORDERLINE [id number] mg/dl HIGH>190 mg/dl VERY HIGH Cholesterol in VLDL Calc [Ma ss/Vol]on 03-02-2025 Cholesterol in VLDL [Mass/Vol] Cholesterol in VLDL [Mass/volume] in Serum or Plasma by calculation [facility] Cholesterol in VLDL [Mass/Vol] 24.4 mg/dL [facility] Erythrocyte distribution wid th Auto (RBC) [Ratio]on 03-02-2025 Erythrocyte distribution width (RBC) [Ratio] Erythrocyte distribution width [Ratio] by Automated count 11.0-15.0 [facility] Erythrocyte distribution width (RBC) [Ratio] 13.4 % 11.0-15.0 [facility] Estimated glomerular filtrat ion rate (GFR) non- Americanon 03-02-2025 GFR/1.73 sq M.predicted among non-blacks MDRD (S/P/Bld) [Vol rate/Area] Estimated glomerular filtration rate (GFR) non- Low >=60 mL/min/1.73 m 2 [facility] GFR/1.73 sq M.predicted among non-blacks MDRD (S/P/Bld) [Vol rate/Area] 27 mL/min/{1.73_m2} Low >=60 mL/min/1.73 m 2 [facility] Hematocrit Auto (Bld) [Volum e fraction]on 03-02-2025 Hematocrit (Bld) [Volume fraction] Hematocrit [Volume Fraction] of Blood by Automated count 36.0-48.0 [facility] Hematocrit (Bld) [Volume fraction] 38.7 % 36.0-48.0 [facility] Hemoglobin [Mass/volume] in Bloodon 03-02-2025 Hemoglobin (Bld) [Mass/Vol] Hemoglobin [Mass/volume] in Blood 12.0-16.0 [facility] Hemoglobin (Bld) [Mass/Vol] 12.9 g/dL 12.0-16.0 [facility] Iron binding capacity [Mass/ volume] in Serum or Plasmaon 03-02-2025 Iron binding capacity [Mass/Vol] Iron binding capacity [Mass/volume] in Serum or Plasma 250.0-450.0 [facility] Iron binding capacity [Mass/Vol] 278.0 ug/dL 250.0-450.0 [facility] Iron saturation [Mass Fracti on] in Serum or Plasmaon 03-02-2025 Iron saturation [Mass fraction] Iron saturation [Mass Fraction] in Serum or Plasma [facility] Iron saturation [Mass fraction] 22.3 % [facility] Laboratory - Chemistry and C hemistry - challengeon 03-02-2025 Albumin [Mass/Vol] 2.4 g/dL Low 3.4-5.0 [facility] Calcium [Mass/Vol] 8.1 mg/dL Low 8.5-10.1 [facility] Chloride [Moles/Vol] 96 mmol/L Low 98-107 [facility] Cholesterol [Mass/Vol] 136 mg/dL <=200 [facility] Cholesterol in HDL [Mass/Vol] 56 mg/dL 40-60 [facility] Comment on above: > or =60 mg/dl - LOW CARDIOVASCULAR RISK<40 mg/dl - HIGH CARDIOVASCULAR RISK CO2 [Moles/Vol] 31.2 mmol/L 21.0-32.0 [facility] Creatinine [Mass/Vol] 1.83 mg/dL High 0.55-1.[address] [facility] Ferritin [Mass/Vol] 114.0 ng/mL 8.0-252.0 [facility] GFR/1.73 sq M.predicted MDRD (S/P/Bld) [Vol rate/Area] 32 mL/min/{1.73_m2} Low >=60 mL/min/1.73 m 2 [facility] Glucose [Mass/Vol] 337 mg/dL High 74-106 [facility] Iron [Mass/Vol] 62.0 ug/dL 50.0-170.0 [facility] Magnesium [Mass/Vol] 1.0 mg/dL Low 1.8-2.4 [facility] Natriuretic peptide B (Bld) [Mass/Vol] 4236.0 pg/mL Critically high <=1800.0 [facility] Comment on above: RESULTS CALLED TO AN BRYANNA ACUNA Potassium [Moles/Vol] 3.6 mmol/L 3.5-5.[address] [facility] Sodium [Moles/Vol] 137 mmol/L 136-145 [facility] Triglyceride [Mass/Vol] 122 mg/dL <=150 [facility] Urate [Mass/Vol] 8.1 mg/dL High 2.6-6.0 [facility] Urea nitrogen [Mass/Vol] 53.0 mg/dL High 7.0-18.0 [facility] Urea nitrogen/Creatinine [Mass ratio] 29.0 mg/mg [facility] Bilirubin Ql (U) Negative NEGATIVE [facility] Glucose (U) [Mass/Vol] 250 mg/dL Abnormal NEGATIVE [facility] Ketones Ql (U) Negative NEGATIVE [facility] pH (U) 6.0 [pH] 5.0-9.0 [facility] Specific gravity (U) [Rel density] 1.020 1.005-1.025 [facility] Urobilinogen Qn (U) 0.2 {Meka'U}/dL 0.2-1.0 [facility] - Specimen inform ationon 03-02-2025 Appearance (U) CLEAR CLEAR [facility] Color (U) LT. YELLOW YELLOW [facility] Laboratory - Urinalysison Leukocyte esterase Test strip Ql (U) Negative NEGATIVE [facility] Mucus Ql (Urine sed) TRACE Abnormal NONE SEEN [facility] Nitrite Ql (U) Negative NEGATIVE [facility] Protein (U) [Mass/Vol] 186.2 mg/dL High <=11.9 [facility] Protein Ql (U) >=300 mg/dL Abnormal NEG/TRACE [facility] Leukocytes [#/volume] correc gali for nucleated erythrocytes in Blood by Automated counon 03-02-2025 WBC corrected for nucl RBC Auto (Bld) [#/Vol] Leukocytes [#/volume] corrected for nucleated erythrocytes in Blood by Automated coun 4.0-11.0 [facility] WBC corrected for nucl RBC Auto (Bld) [#/Vol] 8.7 10 3/uL 4.0-11.0 [facility] MCH Auto (RBC) [Entitic mass ]on 03-02-2025 MCH (RBC) [Entitic mass] MCH [Entitic mass] by Automated count 26.7-34.0 [facility] MCH (RBC) [Entitic mass] 29.4 pg 26.7-34.0 [facility] MCHC Auto (RBC) [Mass/Vol]on 03-02-2025 MCHC (RBC) [Mass/Vol] MCHC [Mass/volume] by Automated count 29.9-35.2 [facility] MCHC (RBC) [Mass/Vol] 33.3 g/dL 29.9-35.[address] [facility] MCV Auto (RBC) [Entitic vol] on 03-02-2025 MCV (RBC) [Entitic vol] MCV [Entitic volume] by Automated count 81.0-99.0 [facility] MCV (RBC) [Entitic vol] 88.2 fL 81.0-99.0 [facility] No Panel Informationon 03-02 25-Hydroxy Vitamin D Total 10.8 ng/mL [facility] Comment on above: <20 ng/mL Vit D defi cient20-<30 ng/mL Vit D wzutrgueuptd13-975 ng/mL Vit D sufficient>100 ng/mL Potential Toxicity Parathyroid Hormone (Intact) 57 pg/mL [facility] Comment on above: Performed at: [facility] [address] [id number] Director: Dimitri Landis PhD, Phone: [phone] Phosphorus Level 4.9 mg/dL High 2.6-4.7 [facility] 57 pg/mL [facility] 10.8 ng/mL [facility] 114.0 ng/mL 8.0-252.0 [facility] 4236.0 pg/mL Critically high <=1800.0 [facility] 1.0 mg/dL Low 1.8-2.4 [facility] 2.4 g/dL Low 3.4-5.0 [facility] 4.9 mg/dL High 2.6-4.7 [facility] 8.1 mg/dL Low 8.5-10.1 [facility] 136 mg/dL <=200 [facility] 29.0 [facility] 62.0 ug/dL 50.0-170.0 [facility] 56 mg/dL 40-60 [facility] 53.0 mg/dL High 7.0-18.0 [facility] 122 mg/dL <=150 [facility] 96 mmol/L Low 98-107 [facility] 31.2 mmol/L 21.0-32.0 [facility] 1.83 mg/dL High 0.55-1.02 [facility] 32 Low >=60 mL/min/1.73 m 2 [facility] 337 mg/dL High 74-106 [facility] 3.6 mmol/L 3.5-5.1 [facility] 137 mmol/L 136-145 [facility] Urine Bacteria SMALL #/HPF Abnormal NONE SEEN [facility] Urine Occult Blood TRACE-I NEGATIVE [facility] Urine Other Casts NONE SEEN #/LPF NONE SEEN [facility] Urine Other Crystals None Seen #/HPF None Seen [facility] Urine Random Creatinine 26.93 mg/dL 20.00-300.0 0 [facility] Urine RBC 2-5 #/HPF Abnormal 0-2 [facility] Urine Squamous Epithelial Cells FEW #/LPF Abnormal NONE/RARE [facility] Urine WBC NONE SEEN #/HPF NONE SEEN [facility] 26.93 mg/dL 20.00-300.0 0 [facility] 186.2 mg/dL High <=11.9 [facility] Office Visiton 03-02-2025 Follow-up visit [id number] Joe Call 1945 F Date Provider Department Center 03/02/2025 [id number] LUNA LOVE [facility] Family History Problem Relation Age of Onset Heart disease Mother Heart attack Father Coronary artery disease Other Diabetes Other Polycystic kidney disease Other Family Status - Relation Status Age at Mother Father Sister Brother Other Level of Service:29094 [place] OFFICE/OUTPATIENT ESTABLISHED MOD MDM 30 MIN Reason for Visit and Comments: 5 week follow up with Labs [Other] Normal [facility] Orders Onlyon 03-02-2025 Orders Only [id number] Joe Call 1945 F Date Provider Department Center 03/02/2025 ARSENIO CASTELLANO Family History Problem Relation Age of Onset Heart disease Mother Heart attack Father Coronary artery disease Other Diabetes Other Polycystic kidney disease Other Family Status - Relation Status Age at Mother Father Sister Brother Other Normal [facility] Platelet mean volume Auto (B ld) [Entitic vol]on 03-02-2025 Platelet mean volume (Bld) [Entitic vol] Platelet mean volume [Entitic volume] in Blood by Automated count 9.5-13.5 [facility] Platelet mean volume (Bld) [Entitic vol] 11.7 fL 9.5-13.5 [facility] Platelets Auto (Bld) [#/Vol] on 03-02-2025 Platelets (Bld) [#/Vol] Platelets [#/volume] in Blood by Automated count 150-450 [facility] Platelets (Bld) [#/Vol] 150 10 3/uL 150-450 [facility] RBC Auto (Bld) [#/Vol]on RBC (Bld) [#/Vol] Erythrocytes [#/volu me] in Blood by Automated count 4.20-5.40 [facility] RBC (Bld) [#/Vol] 4.39 10 6/uL 4.20-5.40 [facility] Serum or plasma anion gap de terminationon 03-02-2025 Anion gap [Moles/Vol] Serum or plasma an ion gap determination [facility] Anion gap [Moles/Vol] 13.4 mmol/L Fi [facility] Serum or plasma total choles terol/high density lipoprotein (HDL) cholesterol mass herminia 03-02-2025 Cholesterol.total/Chol esterol in HDL [Mass ratio] Serum or plasma total cholesterol/high density lipoprotein (HDL) cholesterol mass rat [facility] Comment on above: 3.3 - 4.4 LOW RISK4. 4 - 7.1 AVERAGE RISK7.1 - 11.0 MODERATE RISK>11.0 HIGH RISK Cholesterol.total/Chol esterol in HDL [Mass ratio] 2.4 {ratio} [facility] Comment on above: 3.3 - 4.4 LOW RISK4. 4 - 7.1 AVERAGE RISK7.1 - 11.0 MODERATE RISK>11.0 HIGH RISK Urine protein/creatinine rat ioon 03-02-2025 Protein/Creatinine (U) [Ratio] Urine protein/creatinine ratio [facility] Protein/Creatinine (U) [Ratio] 6.91 [facility] Yeast detection in urine sed iment by light microscopyon 03-02-2025 Yeast LM Ql (Urine sed) SEEN Abnormal NONE SEEN [facility] Office Visiton 01-28-2025 Follow-up visit [id number] Joe Call 1945 F Date Provider Department Center 01/28/2025 [id number] LUNA LOVE [facility] Family History Problem Relation Age of Onset Coronary artery disease Other Diabetes Other Polycystic kidney disease Other Family Status - Relation Status Age at Other Level of Service:36367 [place] OFFICE/OUTPATIENT ESTABLISHED MOD MDM 30 MIN Reason for Visit and Comments: Hypertension [222837] Congestive Heart Failure [127] - Discharged yesterday from [facility] for CHF. Discharge papers from [facility] do not have her on a diuretic. Patient believes she's taking furosemide 40mg every other day. Coronary Artery Disease [187] Atrial Fibrillation [80] - Denies lightheadedness/syncope and bleeding on Xarelto. Hyperlipidemia [182] - No lipids since last visit. Edema [[id number]] Shortness of Breath [691675] - Improving. Palpitations [586120] Fall [556182] - Fell a few days ago at home when she slipped on the carpet. Normal [facility] Basophils Auto (Bld) [#/Vol] on 01-27-2025 Basophils (Bld) [#/Vol] Automated basophil count 0.0-0.1 [facility] Basophils/100 WBC Auto (Bld) on 01-27-2025 Basophils/100 WBC (Bld) Automated basophil % 0.2-2.0 [facility] Eosinophils/100 WBC Auto (Bl d)on 01-27-2025 Eosinophils/100 WBC (Bld) Automated eosinophil % 0.9-7.0 [facility] Erythrocyte distribution wid th Auto (RBC) [Ratio]on 01-27-2025 Erythrocyte distribution width (RBC) [Ratio] Erythrocyte distribution width [Ratio] by Automated count 11.0-15.0 [facility] Estimated glomerular filtrat ion rate (GFR) non- Americanon 01-27-2025 GFR/1.73 sq M.predicted among non-blacks MDRD (S/P/Bld) [Vol rate/Area] Estimated glomerular filtration rate (GFR) non- Low >=60 mL/min/1.73 m 2 [facility] Globulin Calc (S) [Mass/Vol] on 01-27-2025 Globulin (S) [Mass/Vol] Serum globulin measurement by calculation (mass/volume) [facility] Hematocrit Auto (Bld) [Volum e fraction]on 01-27-2025 Hematocrit (Bld) [Volume fraction] Hematocrit [Volume Fraction] of Blood by Automated count 36.0-48.0 [facility] Hemoglobin [Mass/volume] in Bloodon 01-27-2025 Hemoglobin (Bld) [Mass/Vol] Hemoglobin [Mass/volume] in Blood 12.0-16.0 [facility] Laboratory - Chemistry and C hemistry - challengeon 01-27-2025 Potassium [Moles/Vol] 3.8 mmol/L 3.5-5.[address] [facility] Albumin [Mass/Vol] 2.1 g/dL Low 3.4-5.0 [facility] ALP [Catalytic activity/Vol] 79 U/L 46-116 [facility] ALT [Catalytic activity/Vol] 8 U/L Low 14-59 [facility] AST [Catalytic activity/Vol] 17 U/L 15-37 [facility] Bilirubin [Mass/Vol] 0.4 mg/dL 0.2-1.0 [facility] Calcium [Mass/Vol] 8.3 mg/dL Low 8.5-10.1 [facility] Chloride [Moles/Vol] 105 mmol/L 98-107 [facility] CO2 [Moles/Vol] 36.4 mmol/L High 21.0-32.0 [facility] Creatinine [Mass/Vol] 1.52 mg/dL High 0.55-1.[address] [facility] GFR/1.73 sq M.predicted MDRD (S/P/Bld) [Vol rate/Area] 40 mL/min/{1.73_m2} Low >=60 mL/min/1.73 m 2 [facility] Glucose [Mass/Vol] 113 mg/dL High 74-106 [facility] Magnesium [Mass/Vol] 1.3 mg/dL Low 1.8-2.4 [facility] Protein [Mass/Vol] 6.1 g/dL Low 6.4-8.2 [facility] Sodium [Moles/Vol] 144 mmol/L 136-145 [facility] Urea nitrogen [Mass/Vol] 22.0 mg/dL High 7.0-18.0 [facility] Urea nitrogen/Creatinine [Mass ratio] 14.5 mg/mg [facility] Laboratory - Hematology and Cell countson 01-27-2025 Immature granulocytes/100 WBC (Bld) 0.2 % 0.0-0.5 [facility] Leukocytes [#/volume] correc gali for nucleated erythrocytes in Blood by Automated counon 01-27-2025 WBC corrected for nucl RBC Auto (Bld) [#/Vol] Leukocytes [#/volume] corrected for nucleated erythrocytes in Blood by Automated coun 4.0-11.0 [facility] Lymphocytes Auto (Bld) [#/Vo l]on 01-27-2025 Lymphocytes (Bld) [#/Vol] Lymphocytes [#/volume] in Blood by Automated count 1.2-3.8 [facility] Lymphocytes/100 WBC Auto (Bl d)on 01-27-2025 Lymphocytes/100 WBC (Bld) Lymphocytes/100 leukocytes in Blood by Automated count 20.5-60.0 [facility] MCH Auto (RBC) [Entitic mass ]on 01-27-2025 MCH (RBC) [Entitic mass] MCH [Entitic mass] by Automated count 26.7-34.0 [facility] MCHC Auto (RBC) [Mass/Vol]on 01-27-2025 MCHC (RBC) [Mass/Vol] MCHC [Mass/volume] by Automated count 29.9-35.2 [facility] MCV Auto (RBC) [Entitic vol] on 01-27-2025 MCV (RBC) [Entitic vol] MCV [Entitic volume] by Automated count 81.0-99.0 [facility] Monocytes Auto (Bld) [#/Vol] on 01-27-2025 Monocytes (Bld) [#/Vol] Automated blood monocyte count High 0.3-0.8 [facility] Monocytes/100 WBC Auto (Bld) on 01-27-2025 Monocytes/100 WBC (Bld) Automated monocyte % 1.7-12.0 [facility] Neutrophils Auto (Bld) [#/Vo l]on 01-27-2025 Neutrophils (Bld) [#/Vol] Neutrophils [#/volume] in Blood by Automated count 1.4-6.5 [facility] Neutrophils/100 WBC Auto (Bl d)on 01-27-2025 Neutrophils/100 WBC (Bld) Automated neutrophil % 43.0-75.0 [facility] No Panel Informationon 01-27 3.8 mmol/L 3.5-5.1 [facility] Eosinophils # (Auto) 0.2 10 3/uL 0.0-0.[address] [facility] Immature Granulocyte # (Auto) 0.02 10 3/uL 0.00-0.03 [facility] 1.3 mg/dL Low 1.8-2.4 [facility] 0.2 10 3/uL 0.0-0.7 [facility] 2.1 g/dL Low 3.4-5.0 [facility] 79 U/L 46-116 [facility] 8 U/L Low 14-59 [facility] 17 U/L 15-37 [facility] 0.02 10 3/uL 0.00-0.03 [facility] 14.5 [facility] 0.2 % 0.0-0.5 [facility] 22.0 mg/dL High 7.0-18.0 [facility] 8.3 mg/dL Low 8.5-10.1 [facility] 105 mmol/L 98-107 [facility] 36.4 mmol/L High 21.0-32.0 [facility] 1.52 mg/dL High 0.55-1.02 [facility] 40 Low >=60 mL/min/1.73 m 2 [facility] 113 mg/dL High 74-106 [facility] 144 mmol/L 136-145 [facility] 0.4 mg/dL 0.2-1.0 [facility] 6.1 g/dL Low 6.4-8.2 [facility] Platelet mean volume Auto (B ld) [Entitic vol]on 01-27-2025 Platelet mean volume (Bld) [Entitic vol] Platelet mean volume [Entitic volume] in Blood by Automated count 9.5-13.5 [facility] Platelets Auto (Bld) [#/Vol] on 01-27-2025 Platelets (Bld) [#/Vol] Platelets [#/volume] in Blood by Automated count 150-450 [facility] RBC Auto (Bld) [#/Vol]on RBC (Bld) [#/Vol] Erythrocytes [#/volu me] in Blood by Automated count 4.20-5.40 [facility] Serum or plasma albumin/glob ulin mass ratioon 01-27-2025 Albumin/Globulin [Mass ratio] Serum or plasma albumin/globulin mass ratio [facility] Serum or plasma anion gap de terminationon 01-27-2025 Anion gap [Moles/Vol] Serum or plasma an ion gap determination [facility] Basophils Auto (Bld) [#/Vol] on 01-26-2025 Basophils (Bld) [#/Vol] Automated basophil count 0.0-0.1 [facility] Basophils/100 WBC Auto (Bld) on 01-26-2025 Basophils/100 WBC (Bld) Automated basophil % 0.2-2.0 [facility] Eosinophils/100 WBC Auto (Bl d)on 01-26-2025 Eosinophils/100 WBC (Bld) Automated eosinophil % 0.9-7.0 [facility] Erythrocyte distribution wid th Auto (RBC) [Ratio]on 01-26-2025 Erythrocyte distribution width (RBC) [Ratio] Erythrocyte distribution width [Ratio] by Automated count 11.0-15.0 [facility] Estimated glomerular filtrat ion rate (GFR) non- Americanon 01-26-2025 GFR/1.73 sq M.predicted among non-blacks MDRD (S/P/Bld) [Vol rate/Area] Estimated glomerular filtration rate (GFR) non- Low >=60 mL/min/1.73 m 2 [facility] Globulin Calc (S) [Mass/Vol] on 01-26-2025 Globulin (S) [Mass/Vol] Serum globulin measurement by calculation (mass/volume) [facility] Hematocrit Auto (Bld) [Volum e fraction]on 01-26-2025 Hematocrit (Bld) [Volume fraction] Hematocrit [Volume Fraction] of Blood by Automated count 36.0-48.0 [facility] Hemoglobin [Mass/volume] in Bloodon 01-26-2025 Hemoglobin (Bld) [Mass/Vol] Hemoglobin [Mass/volume] in Blood 12.0-16.0 [facility] Laboratory - Chemistry and C hemistry - challengeon 01-26-2025 Albumin [Mass/Vol] 1.9 g/dL Low 3.4-5.0 [facility] ALP [Catalytic activity/Vol] 77 U/L 46-116 [facility] ALT [Catalytic activity/Vol] 11 U/L Low 14-59 [facility] AST [Catalytic activity/Vol] 19 U/L 15-37 [facility] Bilirubin [Mass/Vol] 0.4 mg/dL 0.2-1.0 [facility] Calcium [Mass/Vol] 8.0 mg/dL Low 8.5-10.1 [facility] Chloride [Moles/Vol] 105 mmol/L 98-107 [facility] CO2 [Moles/Vol] 35.1 mmol/L High 21.0-32.0 [facility] Creatinine [Mass/Vol] 1.36 mg/dL High 0.55-1.[address] [facility] GFR/1.73 sq M.predicted MDRD (S/P/Bld) [Vol rate/Area] 46 mL/min/{1.73_m2} Low >=60 mL/min/1.73 m 2 [facility] Glucose [Mass/Vol] 133 mg/dL High 74-106 [facility] Magnesium [Mass/Vol] 1.3 mg/dL Low 1.8-2.4 [facility] Potassium [Moles/Vol] 2.9 mmol/L Critically low 3.5-5.1 [facility] Comment on above: RESULTS CALLED TO JOSE MARTIN DODGE RN @BY Alla Venegas at 0635 Protein [Mass/Vol] 5.8 g/dL Low 6.4-8.2 [facility] Sodium [Moles/Vol] 145 mmol/L 136-145 [facility] Urea nitrogen [Mass/Vol] 21.0 mg/dL High 7.0-18.0 [facility] Urea nitrogen/Creatinine [Mass ratio] 15.4 mg/mg [facility] Laboratory - Hematology and Cell countson 01-26-2025 Immature granulocytes/100 WBC (Bld) 0.1 % 0.0-0.5 [facility] Leukocytes [#/volume] correc gali for nucleated erythrocytes in Blood by Automated counon 01-26-2025 WBC corrected for nucl RBC Auto (Bld) [#/Vol] Leukocytes [#/volume] corrected for nucleated erythrocytes in Blood by Automated coun 4.0-11.0 [facility] Lymphocytes Auto (Bld) [#/Vo l]on 01-26-2025 Lymphocytes (Bld) [#/Vol] Lymphocytes [#/volume] in Blood by Automated count 1.2-3.8 [facility] Lymphocytes/100 WBC Auto (Bl d)on 01-26-2025 Lymphocytes/100 WBC (Bld) Lymphocytes/100 leukocytes in Blood by Automated count Low 20.5-60.0 [facility] MCH Auto (RBC) [Entitic mass ]on 01-26-2025 MCH (RBC) [Entitic mass] MCH [Entitic mass] by Automated count 26.7-34.0 [facility] MCHC Auto (RBC) [Mass/Vol]on 01-26-2025 MCHC (RBC) [Mass/Vol] MCHC [Mass/volume] by Automated count 29.9-35.2 [facility] MCV Auto (RBC) [Entitic vol] on 01-26-2025 MCV (RBC) [Entitic vol] MCV [Entitic volume] by Automated count 81.0-99.0 [facility] Monocytes Auto (Bld) [#/Vol] on 01-26-2025 Monocytes (Bld) [#/Vol] Automated blood monocyte count 0.3-0.8 [facility] Monocytes/100 WBC Auto (Bld) on 01-26-2025 Monocytes/100 WBC (Bld) Automated monocyte % 1.7-12.0 [facility] Neutrophils Auto (Bld) [#/Vo l]on 01-26-2025 Neutrophils (Bld) [#/Vol] Neutrophils [#/volume] in Blood by Automated count 1.4-6.5 [facility] Neutrophils/100 WBC Auto (Bl d)on 01-26-2025 Neutrophils/100 WBC (Bld) Automated neutrophil % 43.0-75.0 [facility] No Panel Informationon 01-26 Eosinophils # (Auto) 0.1 10 3/uL 0.0-0.[address] [facility] Immature Granulocyte # (Auto) 0.01 10 3/uL 0.00-0.03 [facility] Troponin I High Sensitivity 30.9 pg/mL 4.0-51.3 [facility] Comment on above: CUT-OFF POINTS HAVE [...] AND CLINICAL INFORMATION. 1.3 mg/dL Low 1.8-2.4 [facility] 30.9 pg/mL 4.0-51.3 [facility] 0.1 10 3/uL 0.0-0.7 [facility] 1.9 g/dL Low 3.4-5.0 [facility] 77 U/L 46-116 [facility] 11 U/L Low 14-59 [facility] 19 U/L 15-37 [facility] 0.01 10 3/uL 0.00-0.03 [facility] 15.4 [facility] 0.1 % 0.0-0.5 [facility] 21.0 mg/dL High 7.0-18.0 [facility] 8.0 mg/dL Low 8.5-10.1 [facility] 105 mmol/L 98-107 [facility] 35.1 mmol/L High 21.0-32.0 [facility] 1.36 mg/dL High 0.55-1.02 [facility] 46 Low >=60 mL/min/1.73 m 2 [facility] 133 mg/dL High 74-106 [facility] 2.9 mmol/L Critically low 3.5-5.1 [facility] 145 mmol/L 136-145 [facility] 0.4 mg/dL 0.2-1.0 [facility] 5.8 g/dL Low 6.4-8.2 [facility] Platelet mean volume Auto (B ld) [Entitic vol]on 01-26-2025 Platelet mean volume (Bld) [Entitic vol] Platelet mean volume [Entitic volume] in Blood by Automated count 9.5-13.5 [facility] Platelets Auto (Bld) [#/Vol] on 01-26-2025 Platelets (Bld) [#/Vol] Platelets [#/volume] in Blood by Automated count 150-450 [facility] RBC Auto (Bld) [#/Vol]on RBC (Bld) [#/Vol] Erythrocytes [#/volu me] in Blood by Automated count Low 4.20-5.40 [facility] Serum or plasma albumin/glob ulin mass ratioon 01-26-2025 Albumin/Globulin [Mass ratio] Serum or plasma albumin/globulin mass ratio [facility] Serum or plasma anion gap de terminationon 01-26-2025 Anion gap [Moles/Vol] Serum or plasma an ion gap determination [facility] Basophils Auto (Bld) [#/Vol] on 01-25-2025 Basophils (Bld) [#/Vol] Automated basophil count 0.0-0.1 [facility] Basophils/100 WBC Auto (Bld) on 01-25-2025 Basophils/100 WBC (Bld) Automated basophil % 0.2-2.0 [facility] Eosinophils/100 WBC Auto (Bl d)on 01-25-2025 Eosinophils/100 WBC (Bld) Automated eosinophil % 0.9-7.0 [facility] Erythrocyte distribution wid th Auto (RBC) [Ratio]on 01-25-2025 Erythrocyte distribution width (RBC) [Ratio] Erythrocyte distribution width [Ratio] by Automated count 11.0-15.0 [facility] Estimated glomerular filtrat ion rate (GFR) non- Americanon 01-25-2025 GFR/1.73 sq M.predicted among non-blacks MDRD (S/P/Bld) [Vol rate/Area] Estimated glomerular filtration rate (GFR) non- Low >=60 mL/min/1.73 m 2 [facility] Hematocrit Auto (Bld) [Volum e fraction]on 01-25-2025 Hematocrit (Bld) [Volume fraction] Hematocrit [Volume Fraction] of Blood by Automated count 36.0-48.0 [facility] Hemoglobin [Mass/volume] in Bloodon 01-25-2025 Hemoglobin (Bld) [Mass/Vol] Hemoglobin [Mass/volume] in Blood 12.0-16.0 [facility] Laboratory - Chemistry and C hemistry - challengeon 01-25-2025 Potassium [Moles/Vol] 3.1 mmol/L Low 3.5-5.[address] [facility] Free T4 [Mass/Vol] 1.65 ng/dL High 0.76-1.46 [facility] Magnesium [Mass/Vol] 1.2 mg/dL Low 1.8-2.4 [facility] TSH Qn 6.107 m[IU]/L High 0.358-3.740 [facility] Calcium [Mass/Vol] 8.1 mg/dL Low 8.5-10.1 [facility] Chloride [Moles/Vol] 104 mmol/L 98-107 [facility] CO2 [Moles/Vol] 34.6 mmol/L High 21.0-32.0 [facility] Creatinine [Mass/Vol] 1.49 mg/dL High 0.55-1.[address] [facility] GFR/1.73 sq M.predicted MDRD (S/P/Bld) [Vol rate/Area] 41 mL/min/{1.73_m2} Low >=60 mL/min/1.73 m 2 [facility] Glucose [Mass/Vol] 121 mg/dL High 74-106 [facility] Natriuretic peptide B (Bld) [Mass/Vol] 7089.0 pg/mL Critically high <=1800.0 [facility] Comment on above: RESULTS CALLED TO RENETTA Hogan RN @BY Andrea Long [place] at 0458 Sodium [Moles/Vol] 144 mmol/L 136-145 [facility] Urea nitrogen [Mass/Vol] 22.0 mg/dL High 7.0-18.0 [facility] Urea nitrogen/Creatinine [Mass ratio] 14.8 mg/mg [facility] Laboratory - Hematology and Cell countson 01-25-2025 Immature granulocytes/100 WBC (Bld) 0.4 % 0.0-0.5 [facility] Leukocytes [#/volume] correc gali for nucleated erythrocytes in Blood by Automated counon 01-25-2025 WBC corrected for nucl RBC Auto (Bld) [#/Vol] Leukocytes [#/volume] corrected for nucleated erythrocytes in Blood by Automated coun 4.0-11.0 [facility] Lymphocytes Auto (Bld) [#/Vo l]on 01-25-2025 Lymphocytes (Bld) [#/Vol] Lymphocytes [#/volume] in Blood by Automated count 1.2-3.8 [facility] Lymphocytes/100 WBC Auto (Bl d)on 01-25-2025 Lymphocytes/100 WBC (Bld) Lymphocytes/100 leukocytes in Blood by Automated count Low 20.5-60.0 [facility] MCH Auto (RBC) [Entitic mass ]on 01-25-2025 MCH (RBC) [Entitic mass] MCH [Entitic mass] by Automated count 26.7-34.0 [facility] MCHC Auto (RBC) [Mass/Vol]on 01-25-2025 MCHC (RBC) [Mass/Vol] MCHC [Mass/volume] by Automated count 29.9-35.2 [facility] MCV Auto (RBC) [Entitic vol] on 01-25-2025 MCV (RBC) [Entitic vol] MCV [Entitic volume] by Automated count 81.0-99.0 [facility] Monocytes Auto (Bld) [#/Vol] on 01-25-2025 Monocytes (Bld) [#/Vol] Automated blood monocyte count 0.3-0.8 [facility] Monocytes/100 WBC Auto (Bld) on 01-25-2025 Monocytes/100 WBC (Bld) Automated monocyte % 1.7-12.0 [facility] Neutrophils Auto (Bld) [#/Vo l]on 01-25-2025 Neutrophils (Bld) [#/Vol] Neutrophils [#/volume] in Blood by Automated count 1.4-6.5 [facility] Neutrophils/100 WBC Auto (Bl d)on 01-25-2025 Neutrophils/100 WBC (Bld) Automated neutrophil % 43.0-75.0 [facility] No Panel Informationon 01-25 3.1 mmol/L Low 3.5-5.1 [facility] Clostridium difficile (PCR)(LAB) Negative [facility] Negative [facility] Troponin I High Sensitivity 28.4 pg/mL 4.0-51.3 [facility] Comment on above: CUT-OFF POINTS HAVE [...] AND CLINICAL INFORMATION. 1.65 ng/dL High 0.76-1.46 [facility] 6.107 u[iU]/mL High 0.358-3.740 [facility] 28.4 pg/mL 4.0-51.3 [facility] 1.2 mg/dL Low 1.8-2.4 [facility] Eosinophils # (Auto) 0.1 10 3/uL 0.0-0.[address] [facility] Immature Granulocyte # (Auto) 0.03 10 3/uL 0.00-0.03 [facility] 7089.0 pg/mL Critically high <=1800.0 [facility] 14.8 [facility] 22.0 mg/dL High 7.0-18.0 [facility] 0.1 10 3/uL 0.0-0.7 [facility] 8.1 mg/dL Low 8.5-10.1 [facility] 104 mmol/L 98-107 [facility] 34.6 mmol/L High 21.0-32.0 [facility] 1.49 mg/dL High 0.55-1.02 [facility] 0.03 10 3/uL 0.00-0.03 [facility] 41 Low >=60 mL/min/1.73 m 2 [facility] 0.4 % 0.0-0.5 [facility] 121 mg/dL High 74-106 [facility] 144 mmol/L 136-145 [facility] Platelet mean volume Auto (B ld) [Entitic vol]on 01-25-2025 Platelet mean volume (Bld) [Entitic vol] Platelet mean volume [Entitic volume] in Blood by Automated count 9.5-13.5 [facility] Platelets Auto (Bld) [#/Vol] on 01-25-2025 Platelets (Bld) [#/Vol] Platelets [#/volume] in Blood by Automated count 150-450 [facility] RBC Auto (Bld) [#/Vol]on RBC (Bld) [#/Vol] Erythrocytes [#/volu me] in Blood by Automated count Low 4.20-5.40 [facility] Serum or plasma anion gap de terminationon 01-25-2025 Anion gap [Moles/Vol] Serum or plasma an ion gap determination [facility] Laboratory - Chemistry and C hemistry - challengeon 01-21-2025 Bilirubin Ql (U) ++ [facility] Glucose (U) [Mass/Vol] + [facility] Ketones Ql (U) Negative [facility] pH (U) 6.0 [pH] [facility] Specific gravity (U) [Rel density] 1.010 [facility] Urobilinogen (U) [Mass/Vol] 0.2 mg/dL [facility] Laboratory - Specimen inform ationon 01-21-2025 Appearance (U) cloudy [facility] Color (U) darkyellow [facility] Laboratory - Urinalysison Leukocyte esterase Test strip Ql (U) Negative [facility] Nitrite Ql (U) Negative [facility] Protein Ql (U) ++++ [facility] No Panel Informationon 01-21 Urine Occult Blood 5-10 [facility] darkyellow [facility] cloudy [facility] 1.010 [facility] 6.0 [facility] Negative [facility] ++++ [facility] + [facility] 0.2 [facility] ++ [facility] 5-10 [facility] Basophils Auto (Bld) [#/Vol] on 12-04-2024 Basophils (Bld) [#/Vol] Automated basophil count 0.0-0.1 [facility] Basophils/100 WBC Auto (Bld) on 12-04-2024 Basophils/100 WBC (Bld) Automated basophil % 0.2-2.0 [facility] Eosinophils/100 WBC Auto (Bl d)on 12-04-2024 Eosinophils/100 WBC (Bld) Automated eosinophil % 0.9-7.0 [facility] Erythrocyte distribution wid th Auto (RBC) [Ratio]on 12-04-2024 Erythrocyte distribution width (RBC) [Ratio] Erythrocyte distribution width [Ratio] by Automated count 11.0-15.0 [facility] Estimated glomerular filtrat ion rate (GFR) non- Americanon 12-04-2024 GFR/1.73 sq M.predicted among non-blacks MDRD (S/P/Bld) [Vol rate/Area] Estimated glomerular filtration rate (GFR) non- Low >=60 mL/min/1.73 m 2 [facility] Globulin Calc (S) [Mass/Vol] on 12-04-2024 Globulin (S) [Mass/Vol] Serum globulin measurement by calculation (mass/volume) [facility] Hematocrit Auto (Bld) [Volum e fraction]on 12-04-2024 Hematocrit (Bld) [Volume fraction] Hematocrit [Volume Fraction] of Blood by Automated count 36.0-48.0 [facility] Hemoglobin [Mass/volume] in Bloodon 12-04-2024 Hemoglobin (Bld) [Mass/Vol] Hemoglobin [Mass/volume] in Blood Low 12.0-16.0 [facility] INR in Platelet poor plasma by Coagulation assayon 12-04-2024 INR Coag (PPP) [Relative time] INR in Platelet poor plasma by Coagulation assay [facility] Comment on above: DESIRED INR:2.0-3.0 CONDITIONS NOT LISTED BELOW2.5-3.5 FOR PROSTHETIC HEART VALVE REPLACEMENT2.5-3.5 [facility]URRENT [facility]ROMBOSIS Laboratory - Chemistry and C hemistry - challengeon 12-04-2024 Albumin [Mass/Vol] 2.7 g/dL Low 3.4-5.0 [facility] ALP [Catalytic activity/Vol] 111 U/L 46-116 [facility] ALT [Catalytic activity/Vol] 19 U/L 14-59 [facility] AST [Catalytic activity/Vol] 16 U/L 15-37 [facility] Bilirubin [Mass/Vol] 0.6 mg/dL 0.2-1.0 [facility] Calcium [Mass/Vol] 8.7 mg/dL 8.5-10.1 [facility] Chloride [Moles/Vol] 101 mmol/L 98-107 [facility] CO2 [Moles/Vol] 29.9 mmol/L 21.0-32.0 [facility] Creatinine [Mass/Vol] 1.24 mg/dL High 0.55-1.[address] [facility] GFR/1.73 sq M.predicted MDRD (S/P/Bld) [Vol rate/Area] 51 mL/min/{1.73_m2} Low >=60 mL/min/1.73 m 2 [facility] Glucose [Mass/Vol] 310 mg/dL High 74-106 [facility] Natriuretic peptide B (Bld) [Mass/Vol] 3884.0 pg/mL Critically high <=1800.0 [facility] Comment on above: RESULTS CALLED TO AMILCAR RANGEL RN Potassium [Moles/Vol] 4.3 mmol/L 3.5-5.[address] [facility] Protein [Mass/Vol] 7.0 g/dL 6.4-8.2 [facility] Sodium [Moles/Vol] 138 mmol/L 136-145 [facility] Urea nitrogen [Mass/Vol] 28.0 mg/dL High 7.0-18.0 [facility] Urea nitrogen/Creatinine [Mass ratio] 22.6 mg/mg [facility] Laboratory - Hematology and Cell countson 12-04-2024 Immature granulocytes/100 WBC (Bld) 0.2 % 0.0-0.5 [facility] Leukocytes [#/volume] correc gali for nucleated erythrocytes in Blood by Automated counon 12-04-2024 WBC corrected for nucl RBC Auto (Bld) [#/Vol] Leukocytes [#/volume] corrected for nucleated erythrocytes in Blood by Automated coun 4.0-11.0 [facility] Lymphocytes Auto (Bld) [#/Vo l]on 12-04-2024 Lymphocytes (Bld) [#/Vol] Lymphocytes [#/volume] in Blood by Automated count 1.2-3.8 [facility] Lymphocytes/100 WBC Auto (Bl d)on 12-04-2024 Lymphocytes/100 WBC (Bld) Lymphocytes/100 leukocytes in Blood by Automated count Low 20.5-60.0 [facility] MCH Auto (RBC) [Entitic mass ]on 12-04-2024 MCH (RBC) [Entitic mass] MCH [Entitic mass] by Automated count 26.7-34.0 [facility] MCHC Auto (RBC) [Mass/Vol]on 12-04-2024 MCHC (RBC) [Mass/Vol] MCHC [Mass/volume] by Automated count 29.9-35.2 [facility] MCV Auto (RBC) [Entitic vol] on 12-04-2024 MCV (RBC) [Entitic vol] MCV [Entitic volume] by Automated count 81.0-99.0 [facility] Monocytes Auto (Bld) [#/Vol] on 12-04-2024 Monocytes (Bld) [#/Vol] Automated blood monocyte count 0.3-0.8 [facility] Monocytes/100 WBC Auto (Bld) on 12-04-2024 Monocytes/100 WBC (Bld) Automated monocyte % 1.7-12.0 [facility] Neutrophils Auto (Bld) [#/Vo l]on 12-04-2024 Neutrophils (Bld) [#/Vol] Neutrophils [#/volume] in Blood by Automated count 1.4-6.5 [facility] Neutrophils/100 WBC Auto (Bl d)on 12-04-2024 Neutrophils/100 WBC (Bld) Automated neutrophil % 43.0-75.0 [facility] No Panel Informationon 12-04 Eosinophils # (Auto) 0.1 10 3/uL 0.0-0.[address] [facility] Immature Granulocyte # (Auto) 0.02 10 3/uL 0.00-0.03 [facility] Troponin I High Sensitivity 19.6 pg/mL 4.0-51.3 [facility] Comment on above: CUT-OFF POINTS HAVE [...] volume] in Blood by Automated count 9.5-13.5 [facility] Platelets Auto (Bld) [#/Vol] on 12-04-2024 Platelets (Bld) [#/Vol] Platelets [#/volume] in Blood by Automated count 150-450 [facility] Prothrombin time (PT)on 11-13 PT Coag (PPP) [Time] Prothrombin time (PT) High 9.0- 11.6 [facility] RBC Auto (Bld) [#/Vol]on RBC (Bld) [#/Vol] Erythrocytes [#/volu me] in Blood by Automated count Low 4.20-5.40 [facility] Serum or plasma albumin/glob ulin mass ratioon 12-04-2024 Albumin/Globulin [Mass ratio] Serum or plasma albumin/globulin mass ratio [facility] Serum or plasma anion gap de terminationon 12-04-2024 Anion gap [Moles/Vol] Serum or plasma an ion gap determination [facility] Office Visiton 12-02-2024 Follow-up visit [id number] Joe Call 1945 F Date Provider Department Center 12/02/2024 [id number] LUNA Family History Problem Relation Age of Onset Coronary artery disease Other Diabetes Other Polycystic kidney disease Other Family Status - Relation Status Age at Other Level of Service:47057 [place] OFFICE/OUTPATIENT ESTABLISHED MOD MDM 30 MIN Reason for Visit and Comments: Atrial Fibrillation [80] Congestive Heart Failure [127] - Had BMP 3 weeks ago. Taking lasix PRN. Hypertension [095727] Bradycardia [764207] Normal [facility] 36on 11-18-2024 36 Regarding lab result s from 11/03/2024: MD Brooke Sawyer MA Creatinine appears to be better. Patient's made aware. Normal [facility] Ambulatory Visit Summaryon 0 11-13-2024 Ambulatory Visit [...] FRANCHESCA PERAZA PA-C Where: [facility] [address] [address] 2024 11:20 AM EST With: FRANCHESCA PERAZA PA-C Where: [facility] [address] [address]- Medications What How Much When Why Instructions [...] choosing us for your care. Normal [facility] Estimated glomerular filtrat ion rate (GFR) non- Americanon 11-10-2024 GFR/1.73 sq M.predicted among non-blacks MDRD (S/P/Bld) [Vol rate/Area] Estimated glomerular filtration rate (GFR) non- Low >=60 mL/min/1.73 m 2 [facility] Laboratory - Chemistry and C hemistry - challengeon 11-10-2024 Albumin [Mass/Vol] 3.0 g/dL Low 3.4-5.0 [facility] Calcium [Mass/Vol] 8.5 mg/dL 8.5-10.1 [facility] Chloride [Moles/Vol] 99 mmol/L 98-107 [facility] CO2 [Moles/Vol] 26.2 mmol/L 21.0-32.0 [facility] Creatinine [Mass/Vol] 2.00 mg/dL High 0.55-1.[address] [facility] GFR/1.73 sq M.predicted MDRD (S/P/Bld) [Vol rate/Area] 29 mL/min/{1.73_m2} Low >=60 mL/min/1.73 m 2 [facility] Glucose [Mass/Vol] 424 mg/dL High 74-106 [facility] Potassium [Moles/Vol] 4.5 mmol/L 3.5-5.[address] [facility] Sodium [Moles/Vol] 136 mmol/L 136-145 [facility] Urea nitrogen [Mass/Vol] 58.0 mg/dL High 7.0-18.0 [facility] Urea nitrogen/Creatinine [Mass ratio] 29.0 mg/mg [facility] No Panel Informationon 11-10 Phosphorus Level 3.6 mg/dL 2.6-4.7 [facility] Serum or plasma anion gap de terminationon 11-10-2024 Anion gap [Moles/Vol] Serum or plasma an ion gap determination [facility] Urology Office/Clinic Noteon 11-04-2024 Urology Office/Clinic Note Urology Office/Clinic Note Chief Complaint Hospital follow up HPI Staff Pt. did see Dr. Gallardo about 20 years ago Admitted [facility] 10/16 after going to ER for weakness/SOB [...] note of the bladder scan anywhere on [facility] system or output volume once peacock placed). [...] it well. Follows w nephrology for CKD. [employer] 10/25/24 1.31 compared to 3.06 on 10/20/24 [...] E&M of New Patient High 60-74 Min 18817 2. CKD (chronic kidney disease) (N18.9: Chronic kidney disease, unspecified) Follows w Dr Rapp [employer] 1.31 on day of dc (10/25/24) Most recent labs 11/03/24 - BUN 34 [employer] 1.86 GFR 26 Pretty variable all year. (Results scanned into documents) Will repeat in 1 week after peacock removal. Sees Dr Rapp either 11/10 or 11/11. Ordered: E&M of New Patient High 60-74 Min 16891 Renal Function Panel 3. Stress incontinence (N39.3: Stress incontinence (female) (male)) At baseline. Typically when stands from seated position or coughing. 2-4 pads per day. Reassess baseline sx at f/u in 4-6 wks. Ordered: E&M of New Patient High 60-74 Min 33540 Total time spent reviewing previous notes/results/external documents, preparing the chart, conducting the encounter with the patient and family, ordering tests/medications, and documenting the encounter was 60 minutes. Follow-up With When Contact Information SYDNIE HASSAN Within 6 weeks [address] [place] [address] Business (1) Additional Instructions: Patient [...] acetaminophen-oxycodone 3 (more content not included)... Normal [facility] Comment on above: Result Comment: Elec tronically Signed By: FRANCHESCA PERAZA PA-C\.valorie\Date and Time Signed: 11/04/24 11:13 EST Estimated glomerular filtrat ion rate (GFR) non- Americanon 11-03-2024 GFR/1.73 sq M.predicted among non-blacks MDRD (S/P/Bld) [Vol rate/Area] Estimated glomerular filtration rate (GFR) non- Low >=60 mL/min/1.73 m 2 [facility] Laboratory - Chemistry and C hemistry - challengeon 11-03-2024 Calcium [Mass/Vol] 8.8 mg/dL 8.5-10.1 [facility] Chloride [Moles/Vol] 99 mmol/L 98-107 [facility] CO2 [Moles/Vol] 23.1 mmol/L 21.0-32.0 [facility] Creatinine [Mass/Vol] 1.86 mg/dL High 0.55-1.[address] [facility] GFR/1.73 sq M.predicted MDRD (S/P/Bld) [Vol rate/Area] 32 mL/min/{1.73_m2} Low >=60 mL/min/1.73 m 2 [facility] Glucose [Mass/Vol] 367 mg/dL High 74-106 [facility] Potassium [Moles/Vol] 4.7 mmol/L 3.5-5.[address] [facility] Sodium [Moles/Vol] 134 mmol/L Low 136-145 [facility] Urea nitrogen [Mass/Vol] 34.0 mg/dL High 7.0-18.0 [facility] Urea nitrogen/Creatinine [Mass ratio] 18.3 mg/mg [facility] Serum or plasma anion gap de terminationon 11-03-2024 Anion gap [Moles/Vol] Serum or plasma an ion gap determination [facility] Office Visiton 10-31-2024 Follow-up visit [id number] Joe Call 1945 F Date Provider Department Center 10/31/2024 [id number] LOVE [facility] Family History Problem Relation Age of Onset Coronary artery disease Other Diabetes Other Polycystic kidney disease Other Family Status - Relation Status Age at Other Level of Service:08441 [place] OFFICE/OUTPATIENT ESTABLISHED MOD MDM 30 MIN Normal [facility] B-Type Natriuretic Peptideon 10-25-2024 Natriuretic peptide B (Bld) [Mass/Vol] 455.0 pg/mL High 5-100 [facility] Comment on above: Result Comment: PERF ORMED BY: [place] [address] PATHOLOGIST [employer] MAY HYDE M.D. Performed By: #### C MP #### [address] Basic Metabolic Panelon 10-12 Anion gap [Moles/Vol] 13.0 mmol/L Normal 6.0-15.0 Th e [facility] Comment on above: Performed By: #### C MP #### [address] Calcium [Mass/Vol] 8.6 mg/dL Normal 8.6-10.3 [facility] Comment on above: Performed By: #### C MP #### [place] [address] [place] Chloride [Moles/Vol] 101 mmol/L Normal 98-107 [facility] Comment on above: Performed By: #### C MP #### [address] CO2 [Moles/Vol] 23.8 mmol/L Normal 21.0-31.0 [facility] Comment on above: Performed By: #### C MP #### [address] Creatinine [Mass/Vol] 1.31 mg/dL High 0.60-1.20 [facility] Comment on above: Performed By: #### C MP #### [address] Creatinine Clr Calc Pharmacy 46.58 Normal [facility] Comment on above: Result Comment: PERF ORMED BY: [place] [address] PATHOLOGIST [employer] MAY HYDE M.D. Performed By: #### C MP #### [address] Estimated GFR 41.704 mL/Min Normal [facility] Comment on above: Performed By: #### C MP #### [address] Glucose [Mass/Vol] 232 mg/dL High 70-100 [facility] Comment on above: Result Comment: [place] Glucose Reference Range is dependent on time and content of last meal. Glucose of more than 200 mg/dL in a nonstressed, ambulatory subject supports the diagnosis of Diabetes Mellitus. ADA recommended reference range Performed By: #### C MP #### [address] Potassium [Moles/Vol] 4.8 mmol/L Normal 3.5-5.1 [facility] Comment on above: Performed By: #### C MP #### [address] Sodium [Moles/Vol] 133 mmol/L Low 136-145 [facility] Comment on above: Performed By: #### C MP #### [address] Urea nitrogen [Mass/Vol] 39 mg/dL High 7-25 [facility] Comment on above: Performed By: #### C MP #### [place] [address] [place] Basophils Auto (Bld) [#/Vol] Ordered By: Daniele Jane on 10-25-2024 Basophils (Bld) [#/Vol] Automated basophil count 0.0-0.2 [facility] Basophils/100 WBC Auto (Bld) Ordered By: Daniele Jane on 10-25-2024 Basophils/100 WBC (Bld) Automated basophil % . [facility] COVID CepheidOrdered By: Trino vanita Jane on 10-25-2024 SARS-CoV-2 (COVID-19) Ab IA Ql COVID Cepheid Abnormal Negative [facility] Comment on above: This is a [...] or Cepheid Disclaimer revoked sooner. PERFORMED BY: [address] [address] PATHOLOGIST [employer] MAY HYDE M.D. Normal [facility] Comment on above: Performed By: #### C MP #### [facility] [address] [place] [address] [place] Calcium [Mass/volume] in Ser um or PlasmaOrdered By: Daniele Jane on 10-25-2024 Calcium [Mass/Vol] Calcium [Mass/volume ] in Serum or Plasma 8.6-10.3 [facility] Carbon dioxide, total [Moles /volume] in Serum or PlasmaOrdered By: Daniele Jane on 10-25-2024 CO2 [Moles/Vol] Carbon dioxide, tota l [Moles/volume] in Serum or Plasma 21.0-31.0 [facility] Cepheid COVID PCR Positiveon 10-25-2024 SARS-CoV-2 (COVID-19) RNA FERN+probe Ql (Unsp spec) Positive Critically abnormal Negative [facility] Comment on above: Result Comment: This is a duplicate Cepheid Xpert Xpress CoV-2/Flu/RSV Plus RNA by RT-PCR result to be used for statistical tracking purpose only. PERFORMED BY: [address] [address] PATHOLOGIST [employer] MAY HYDE M.D. Performed By: #### C MP #### [facility] [address] [place] [address] [place] Chloride [Moles/volume] in S oziel or PlasmaOrdered By: Daniele Jane on 10-25-2024 Chloride [Moles/Vol] Chloride [Moles/vol ume] in Serum or Plasma 98-107 [facility] Complete Blood Count Auto Di ffon 10-25-2024 Basophils (Bld) [#/Vol] 0.1 10*3/uL Normal 0.0-0.2 [facility] Comment on above: Result Comment: PERF ORMED BY: [place] [address] PATHOLOGIST [employer] MAY HYDE M.D. Performed By: #### C MP #### [address] Basophils/100 WBC (Bld) 0.9 % Normal . [facility] Comment on above: Performed By: #### C MP #### [address] Eosinophils (Bld) [#/Vol] 0.1 10*3/uL Normal 0.0-0.45 [facility] Comment on above: Performed By: #### C MP #### [address] Eosinophils/100 WBC (Bld) 1.5 % Normal . [facility] Comment on above: Performed By: #### C MP #### [address] Erythrocyte distribution width (RBC) [Ratio] 15.3 % Normal 11.9-15.3 [facility] Comment on above: Performed By: #### C MP #### [address] Hematocrit (Bld) [Volume fraction] 36.2 % Normal 34.0-46.4 [facility] Comment on above: Performed By: #### C MP #### [address] Hemoglobin (Bld) [Mass/Vol] 12.2 g/dL Normal 11.8-15.4 [facility] Comment on above: Performed By: #### C MP #### [address] Lymphocytes (Bld) [#/Vol] 0.8 10*3/uL Low 1.00-4.8 [facility] Comment on above: Performed By: #### C MP #### [address] Lymphocytes/100 WBC (Bld) 9.8 % Normal . [facility] Comment on above: Performed By: #### C MP #### [address] MCH (RBC) [Entitic mass] 29.5 pg Normal 24.7-34.3 [facility] Comment on above: Performed By: #### C MP #### [address] MCV (RBC) [Entitic vol] 87.6 fL Normal 80-100 [facility] Comment on above: Performed By: #### C MP #### [address] Mean Corpuscular HGB Conc 33.7 g/dL Normal 32.0-35.0 [facility] Comment on above: Performed By: #### C MP #### [address] Monocytes (Bld) [#/Vol] 0.8 10*3/uL Normal 0.0-0.8 [facility] Comment on above: Performed By: #### C MP #### [address] Monocytes/100 WBC (Bld) 25.33 % High 0.00-20.00 [facility] Comment on above: Result Comment: For adults in ED, MDW > 20.0 may be associated with a higher risk of sepsis during the first 12 hrs of hospital admission Performed By: #### C MP #### [address] Monocytes/100 WBC (Bld) 10.7 % Normal . [facility] Comment on above: Performed By: #### C MP #### [address] Neutrophils (Bld) [#/Vol] 6.1 10*3/uL Normal 1.8-7.7 [facility] Comment on above: Performed By: #### C MP #### [facility] [address] [place] [address] [place] Neutrophils/100 WBC (Bld) 77.1 % Normal . [facility] Comment on above: Performed By: #### C MP #### [facility] [address] [place] [address] [place] NRBC% 0.1 /100{WBC} Normal 0-0.[address] [facility] Comment on above: Performed By: #### C MP #### [facility] [address] [place] [address] [place] Platelet mean volume (Bld) [Entitic vol] 9.0 fL Normal 6.3-10.7 The [facility] Comment on above: Performed By: #### C MP #### [facility] [address] [place] [address] [place] Platelets (Bld) [#/Vol] 142 10*3/uL Low 150-450 [facility] Comment on above: Performed By: #### C MP #### [facility] [address] [place] [address] [place] RBC (Bld) [#/Vol] 4.13 10*6/uL Normal 3.60-5.[address] [facility] Comment on above: Performed By: #### C MP #### [facility] [address] [place] [address] [place] WBC (Bld) [#/Vol] 7.9 10*3/uL Normal 3.8-11.6 The [facility] Comment on above: Performed By: #### C MP #### [place] [address] [place] Creatinine [Mass/volume] in Serum or PlasmaOrdered By: Daniele Jane on 10-25-2024 Creatinine [Mass/Vol] Creatinine [Mass/v olume] in Serum or Plasma High 0.60-1.20 [facility] ECG 12 lead ECGon 10-25-2024 ECG 12 lead ECG [facility] Main [place] [address] [place] [address] Electrocardiograph Report Signed Patient: Joe Call MR#: [id number] 0 : 1945 Acct:[id number] Age/Sex: 79 / F ADM Date: 10/25/24 Loc: ER Room: Type: [facility] ER Attending Dr: Ordering Provider: [...] sinus arrhythmia Confirmed by Daniele Jane DO ([id number]) on 10/25/2024 2:01:48 PM Referred By: Electronically Signed By: Daniele Jane DO Transcribed By: MUS Signed By Daniele Jane DO 1401 Normal [facility] Eosinophils Auto (Bld) [#/Vo l]Ordered By: Daniele Jane on 10-25-2024 Eosinophils (Bld) [#/Vol] Automated eosinophil count 0.0-0.45 [facility] Eosinophils/100 WBC Auto (Bl d)Ordered By: Daniele Jane on 10-25-2024 Eosinophils/100 WBC (Bld) Automated eosinophil % . [facility] Erythrocyte distribution wid th Auto (RBC) [Ratio]Ordered By: Daniele Jane on 10-25-2024 Erythrocyte distribution width (RBC) [Ratio] Erythrocyte distribution width [Ratio] by Automated count 11.9-15.3 [facility] Glucose [Mass/volume] in Ser um or PlasmaOrdered By: Daniele Jane on 10-25-2024 Glucose [Mass/Vol] Glucose [Mass/volume ] in Serum or Plasma High 70-100 [facility] Comment on above: ADA recommended refe rence rangeRandom Glucose Reference Range is dependent on time and content of last meal. Glucose of more than 200 mg/dL in a nonstressed, ambulatory subject supports the diagnosis of Diabetes Mellitus. Hematocrit Auto (Bld) [Volum e fraction]Ordered By: Daniele Jane on 10-25-2024 Hematocrit (Bld) [Volume fraction] Hematocrit [Volume Fraction] of Blood by Automated count 34.0-46.4 [facility] Hemoglobin [Mass/volume] in BloodOrdered By: Daniele Jane on 10-25-2024 Hemoglobin (Bld) [Mass/Vol] Hemoglobin [Mass/volume] in Blood 11.8-15.4 [facility] INR in Platelet poor plasma by Coagulation assayOrdered By: Daniele Jane on 10-25-2024 INR Coag (PPP) [Relative time] INR in Platelet poor plasma by Coagulation assay [facility] Comment on above: INR Therapeutic Rang [...] erythrocytes in Blood by Automated coun 3.8-11.6 [facility] Lymphocytes Auto (Bld) [#/Vo l]Ordered By: Daniele Jane on 10-25-2024 Lymphocytes (Bld) [#/Vol] Lymphocytes [#/volume] in Blood by Automated count Low 1.00-4.8 [facility] Lymphocytes/100 WBC Auto (Bl d)Ordered By: Daniele Jane on 10-25-2024 Lymphocytes/100 WBC (Bld) Lymphocytes/100 leukocytes in Blood by Automated count . [facility] MCH Auto (RBC) [Entitic mass ]Ordered By: Daniele Jane on 10-25-2024 MCH (RBC) [Entitic mass] MCH [Entitic mass] by Automated count 24.7-34.3 [facility] MCHC Auto (RBC) [Mass/Vol]Or dered By: Daniele Jane on 10-25-2024 MCHC (RBC) [Mass/Vol] MCHC [Mass/volume] by Automated count 32.0-35.0 [facility] MCV Auto (RBC) [Entitic vol] Ordered By: Daniele Jane on 10-25-2024 MCV (RBC) [Entitic vol] MCV [Entitic volume] by Automated count 80-100 [facility] Monocyte distribution width [Entitic volume] in Blood by AutomatedOrdered By: Daniele Jane on 10-25-2024 Monocyte distribution width Auto (Bld) [Entitic vol] Monocyte distribution width [Entitic volume] in Blood by Automated High 0.00-20.00 [facility] Comment on above: For adults in ED, MD W > 20.0 may be associated with a higher risk of sepsis during the first 12 hrs of hospital admission Monocytes Auto (Bld) [#/Vol] Ordered By: Daniele Jane on 10-25-2024 Monocytes (Bld) [#/Vol] Automated blood monocyte count 0.0-0.8 [facility] Monocytes/100 WBC Auto (Bld) Ordered By: Daniele Jane on 10-25-2024 Monocytes/100 WBC (Bld) Automated monocyte % . [facility] Natriuretic peptide B [Mass/ Vol]Ordered By: Daniele Jane on 10-25-2024 Natriuretic peptide B (Bld) [Mass/Vol] BNP ser/plas High 5-100 [facility] Neutrophils Auto (Bld) [#/Vo l]Ordered By: Daniele Jane on 10-25-2024 Neutrophils (Bld) [#/Vol] Neutrophils [#/volume] in Blood by Automated count 1.8-7.7 [facility] Neutrophils/100 WBC Auto (Bl d)Ordered By: Daniele Jane on 10-25-2024 Neutrophils/100 WBC (Bld) Automated neutrophil % . [facility] No Panel InformationOrdered By: Daniele Jane on 10-25-2024 Estimated GFR (CKD-EPI) 41.704 mL/Min [facility] Creatinine Clearance (Chem 46.58 [facility] Nucleated erythrocytes [Pres ence] in Blood by Automated countOrdered By: Daniele Jane on 10-25-2024 Nucleated RBC Auto Ql (Bld) Nucleated erythrocytes [Presence] in Blood by Automated count 0-0.5 [facility] Partial Thromboplastin Timeo n 10-25-2024 aPTT Coag (Bld) [Time] 28.6 s Normal 25.1-36.5 Th e [facility] Comment on above: Result Comment: A he matocrit value greater than 55% may lead to inaccurate results in coagulation testing. Patients having hematocrit values >55% require a special collection tube for coagulation studies. Please contact the laboratory at [phone] for redraw instructions. PERFORMED BY: [facility] [address] [place] [address] PATHOLOGIST [employer] MAY HYDE M.D. Performed By: #### G LULS #### Point of Care testing , Platelet mean volume Auto (B ld) [Entitic vol]Ordered By: Daniele Jane on 10-25-2024 Platelet mean volume (Bld) [Entitic vol] Platelet mean volume [Entitic volume] in Blood by Automated count 6.3-10.7 [facility] Platelets Auto (Bld) [#/Vol] Ordered By: Daniele Jane on 10-25-2024 Platelets (Bld) [#/Vol] Platelets [#/volume] in Blood by Automated count Low 150-450 [facility] Potassium [Moles/volume] in Serum or PlasmaOrdered By: Daniele Jane on 10-25-2024 Potassium [Moles/Vol] Potassium [Moles/v olume] in Serum or Plasma 3.5-5.1 [facility] Prothrombin Time INRon 10-25 INR Coag (PPP) [Relative time] 1.2 {INR} Normal [facility] Comment on above: [...] 13.5 s High 9.0-12.9 [facility] Comment on above: Result Comment: A he matocrit value greater than 55% may lead to inaccurate results in coagulation testing. Patients having hematocrit values >55% require a special collection tube for coagulation studies. Please contact the laboratory at [phone] for redraw instructions. Performed By: #### G LULS #### Point of Care testing , Prothrombin time (PT)Ordered By: Daniele Jane on 10-25-2024 PT Coag (PPP) [Time] Prothrombin time (PT) High 9.0- 12.9 [facility] Comment on above: A hematocrit value g reater than 55% may lead to inaccurate results in coagulation testing. Patients having hematocrit values >55% require a special collection tube for coagulation studies. Please contact the laboratory at [phone] for redraw instructions. RBC Auto (Bld) [#/Vol]Ordere d By: Daniele Jane on 10-25-2024 RBC (Bld) [#/Vol] Erythrocytes [#/volu me] in Blood by Automated count 3.60-5.00 [facility] Respiratory specimen influen za A virus, influenza B virus, respiratory syncytical virOrdered By: Daniele Jane on 10-25-2024 SARS-CoV-2 (COVID-19) RNA FERN+probe Ql (Unsp spec) Respiratory specimen influenza A virus, influenza B virus, respiratory syncytical vir [facility] SARS-CoV-2 (COVID-19) RNA FERN+probe Ql (Unsp spec) Respiratory specimen influenza A virus, influenza B virus, respiratory syncytical vir [facility] Serum or plasma anion gap de terminationOrdered By: Daniele Jane on 10-25-2024 Anion gap [Moles/Vol] Serum or plasma an ion gap determination 6.0-15.0 [facility] Sodium [Moles/volume] in Ser um or PlasmaOrdered By: Daniele Jane on 10-25-2024 Sodium [Moles/Vol] Sodium [Moles/volume ] in Serum or Plasma Low 136-145 [facility] Troponin I High Sensitivityo n 10-25-2024 Troponin I High Sensitivity 14.6 pg/mL Normal 0.0-15.0 [facility] Comment on above: Result Comment: PERF ORMED BY: [place] [address] PATHOLOGIST [employer] MAY HYDE M.D. Performed By: #### C MP #### [address] Troponin I.cardiac [Mass/vol ume] in Serum or Plasma by Detection limit <= 0.01 ng/Ordered By: Daniele Jane on 10-25-2024 Troponin I.cardiac DL <= 0.01 ng/mL [Mass/Vol] Troponin I.cardiac [Mass/volume] in Serum or Plasma by Detection limit <= 0.01 ng/ 0.0-15.0 [facility] Urea nitrogen [Mass/volume] in Serum or PlasmaOrdered By: Daniele Jane on 10-25-2024 Urea nitrogen [Mass/Vol] Urea nitrogen [Mass/volume] in Serum or Plasma High 7-25 [facility] WBC Auto (Bld) [#/Vol]Ordere d By: Daniele Jane on 10-25-2024 WBC (Bld) [#/Vol] Leukocytes [#/volume ] in Blood by Automated count 3.8-11.6 [facility] XR chest 1V portableon 10-25 XR chest 1V portable [facility] Main [place] [id number] XRay Report Signed Patient: Joe Call MR#: [id number] 0 : 1945 Acct:[id number] Age/Sex: 79 / F ADM Date: 10/25/24 Loc: ER Room: Type: [facility] ER Attending Dr: Copies to: Daniele Jane [...] Jarred Randolph M.D.10/25/2024 7:35 AM Dictation Location: [facility]--20 Transcribed By: [facility] 10/25/2435 Dictated By: Jarred Randolph DO 10/25/24 0734 Signed By: 10/25/24734 Normal [facility] aPTT in Platelet poor plasma by Coagulation assayOrdered By: Daniele Jane on 10-25-2024 aPTT Coag (PPP) [Time] Activated partial thromboplastin time (aPTT) in platelet poor plasma by coagulation a 25.1-36.5 [facility] Comment on above: A hematocrit value g reater than 55% may lead to inaccurate results in coagulation testing. Patients having hematocrit values >55% require a special collection tube for coagulation studies. Please contact the laboratory at [phone] for redraw instructions. Appearance of UrineOrdered B y: Zhang Norwood on 10-22-2024 Appearance (U) Urine appearance Abnormal Clear [facility] Bacteria [Presence] in Urine by AutomatedOrdered By: Zhang Norwood on 10-22-2024 Bacteria Auto Ql (U) Bacteria [Presence] in Urine by Automated None Seen [facility] Bilirubin Test strip Ql (U)O rdered By: Zhang Norwood on 10-22-2024 Bilirubin Ql (U) Bilirubin.total [Presence] in Urine by Test strip Negative [facility] Calcium oxalate crystals [Pr esence] in Urine by Computer assisted methodOrdered By: Zhang Norwood on 10-22-2024 Calcium oxalate crystals Computer assisted Ql (U) Calcium oxalate crystals [Presence] in Urine by Computer assisted method [facility] Color Auto (U)Ordered By: Renetta Norwood on 10-22-2024 Color (U) Color of Urine by Auto Yellow Fi [facility] Dipstick and Microscopicon 1 12-23-2023 Appearance (U) Cloudy Critically abnormal Clear [facility] Comment on above: Order Comment: Name Collection Type:: Peacock Catheter Performed By: #### B PRESS TECHNICIAN, HS TROP, PT, CBC, BMP #### [facility] [address] [place] [address] [place] Bacteria,Urine None Seen Normal None Seen [facility] Comment on above: Order Comment: Name Collection Type:: Peacock Catheter Performed By: #### B PRESS TECHNICIAN, HS TROP, PT, CBC, BMP #### [facility] [address] [place] [address] [place] Bilirubin,Urine Negative Normal Negative The [facility] Comment on above: Order Comment: Name Collection Type:: Peacock Catheter Performed By: #### B PRESS TECHNICIAN, HS TROP, PT, CBC, BMP #### [facility] [address] Calcium Oxalate Crystals,Urine Rare Normal [facility] Comment on above: Order Comment: Name Collection Type:: Peacock Catheter Performed By: #### B PRESS TECHNICIAN, HS TROP, PT, CBC, BMP #### [facility] [address] [place] [address] [place] Color (U) Yellow Normal Yellow [facility] Comment on above: Order Comment: Name Collection Type:: Peacock Catheter Performed By: #### B PRESS TECHNICIAN, HS TROP, PT, CBC, BMP #### [facility] [address] [place] [address] [place] Glucose Ql (U) 30 mg/dL High Normal [facility] Comment on above: Order Comment: Name Collection Type:: Peacock Catheter Performed By: #### B PRESS TECHNICIAN, HS TROP, PT, CBC, BMP #### [facility] [address] [place] [address] [place] Hyaline Casts,Urine 0 [LPF] Normal 0-8 [facility] Comment on above: Order Comment: Name Collection Type:: Peacock Catheter Performed By: #### B PRESS TECHNICIAN, HS TROP, PT, CBC, BMP #### [facility] [address] [place] [address] [place] Ketones Ql (U) Negative Normal Negative [facility] Comment on above: Order Comment: Name Collection Type:: Peacock Catheter Performed By: #### B PRESS TECHNICIAN, HS TROP, PT, CBC, BMP #### [address] Leukocyte esterase Test strip Ql (U) 1+ High Negative [facility] Comment on above: Order Comment: Name Collection Type:: Peacock Catheter Performed By: #### B PRESS TECHNICIAN, HS TROP, PT, CBC, BMP #### [address] Mucus,Urine Rare Normal [facility] Comment on above: Order Comment: Name Collection Type:: Peacock Catheter Result Comment: PERF ORMED BY: [place] [address] PATHOLOGIST [employer] MAY HYDE M.D. Performed By: #### B PRESS TECHNICIAN, HS TROP, PT, CBC, BMP #### [address] Nitrite,Urine Negative Normal Negative The [facility] Comment on above: Order Comment: Name Collection Type:: Peacock Catheter Performed By: #### B PRESS TECHNICIAN, HS TROP, PT, CBC, BMP #### [address] Occult Blood,Urine 3+ High Negative The [facility] Comment on above: Order Comment: Name Collection Type:: Peacock Catheter Result Comment: PERF ORMED BY: [place] [address] PATHOLOGIST [employer] MAY HYDE M.D. Performed By: #### B PRESS TECHNICIAN, HS TROP, PT, CBC, BMP #### [address] pH (U) 5.5 [pH] Normal 5.0-9.0 [facility] Comment on above: Order Comment: Name Collection Type:: Peacock Catheter Performed By: #### B PRESS TECHNICIAN, HS TROP, PT, CBC, BMP #### [place] [address] [place] Protein (U) [Mass/Vol] 300 mg/dL High Negative Th e [facility] Comment on above: Order Comment: Name Collection Type:: Peacock Catheter Performed By: #### B PRESS TECHNICIAN, HS TROP, PT, CBC, BMP #### [facility] [address] RBC,Urine Innumerable High 0-4 [facility] Comment on above: Order Comment: Name Collection Type:: Peacock Catheter Performed By: #### B PRESS TECHNICIAN, HS TROP, PT, CBC, BMP #### [facility] [address] Specificy [place],Urine 1.019 Normal 1.001-1.030 [facility] Comment on above: Order Comment: Name Collection Type:: Peacock Catheter Performed By: #### B PRESS TECHNICIAN, HS TROP, PT, CBC, BMP #### [address] Squamous Epithelial Cell,Urine 1 [HPF] Normal 0-2 [facility] Comment on above: Order Comment: Name Collection Type:: Peacock Catheter Performed By: #### B PRESS TECHNICIAN, HS TROP, PT, CBC, BMP #### [address] Urobilinogen,Urine Normal Normal Normal The [facility] Comment on above: Order Comment: Name Collection Type:: Peacock Catheter Performed By: #### B PRESS TECHNICIAN, HS TROP, PT, CBC, BMP #### [address] WBC,Urine 10 [HPF] High 0-4 [facility] Comment on above: Order Comment: Name Collection Type:: Peacock Catheter Performed By: #### B PRESS TECHNICIAN, HS TROP, PT, CBC, BMP #### [address] Epithelial cells.squamous [# /area] in Urine sediment by Automated countOrdered By: Zhang Norwood on 10-22-2024 Epithelial cells.squamous Auto (Urine sed) [#/Area] Epithelial cells.squamous [#/area] in Urine sediment by Automated count 0-2 [facility] Erythrocytes [#/area] in Uri ne sediment by Automated countOrdered By: Zhang Norwood on 10-22-2024 RBC Auto (Urine sed) [#/Area] Erythrocytes [#/area] in Urine sediment by Automated count [facility] 0-4 [facility] Glucose [Mass/volume] in Uri ne by Test stripOrdered By: Zhang Norwood on 10-22-2024 Glucose Test strip (U) [Mass/Vol] Glucose [Mass/volume] in Urine by Test strip [facility] Normal [facility] Hemoglobin Test strip Ql (U) Ordered By: Zhang Norwood on 10-22-2024 Hemoglobin Ql (U) Hemoglobin [Presence ] in Urine by Test strip [facility] Negative [facility] Hyaline casts [#/area] in Ur ine sediment by Automated countOrdered By: Zhang Norwood on 10-22-2024 Hyaline casts Auto (Urine sed) [#/Area] Hyaline casts [#/area] in Urine sediment by Automated count 0-8 [facility] Ketones Test strip Ql (U)Ord ered By: Zhang Norwood on 10-22-2024 Ketones Ql (U) Ketones [Presence] i n Urine by Test strip Negative [facility] Leukocyte esterase [Presence ] in Urine by Test stripOrdered By: Zhang Norwood on 10-22-2024 Leukocyte esterase Test strip Ql (U) Leukocyte esterase [Presence] in Urine by Test strip [facility] Negative [facility] Leukocytes [#/area] in Urine sediment by Automated countOrdered By: Zhang Norwood on 10-22-2024 WBC Auto (Urine sed) [#/Area] Leukocytes [#/area] in Urine sediment by Automated count [facility] 0-4 [facility] Mucus [Presence] in Urine by AutomatedOrdered By: Zhang Norwood on 10-22-2024 Mucus Auto Ql (U) Mucus [Presence] in Urine by Automated [facility] Nitrite Test strip Ql (U)Ord ered By: Zhang Norwood on 10-22-2024 Nitrite Ql (U) Nitrite [Presence] i n Urine by Test strip Negative [facility] Protein Test strip (U) [Mass /Vol]Ordered By: Zhang Norwood on 10-22-2024 Protein (U) [Mass/Vol] Protein [Mass/vol ume] in Urine by Test strip High Negative [facility] Specific gravity Test strip (U) [Rel density]Ordered By: Zhang Norwood on 10-22-2024 Specific gravity (U) [Rel density] Specific gravity of Urine by Test strip 1.001-1.030 [facility] Urine Cultureon 10-22-2024 Bacteria identified Cx Nom (U) 15,000 colonies/ml mixed bacterial skin contaminants 2 Days PERFORMED BY: [place] [address] PATHOLOGIST [employer] MAY HYDE M.D. Normal [facility] Comment on above: Performed By: #### B PRESS TECHNICIAN, HS TROP, PT, CBC, BMP #### [address] Urine cultureOrdered By: Hortensia Norwood on 10-22-2024 Bacteria identified Cx Nom (U) Urine culture [facility] Bacteria identified Cx Nom (U) Urine culture [facility] Urobilinogen Test strip (U) [Mass/Vol]Ordered By: Zhang Norwood on 10-22-2024 Urobilinogen (U) [Mass/Vol] Urobilinogen [Mass/volume] in Urine by Test strip Normal [facility] pH Test strip (U)Ordered By: Zhang Norwood on 10-22-2024 pH (U) pH of Urine by Test strip 5.0-9.0 [facility] A1C with Estimated Average G jade 10-20-2024 Glucose [Mass/Vol] 292 mg/dL Normal [facility] Comment on above: Result Comment: PERF ORMED BY: [place] [address] PATHOLOGIST [employer] MAY HYDE M.D. Performed By: #### G LUMARLEN #### Point of Care testing , HbA1c (Bld) [Mass fraction] 11.8 % High 4.3-5.6 [facility] Comment on above: Result Comment: Incr eased risk for diabetes: 5.7 - 6.4 diabetes: >6.4 glycemic control for adults with diabetes: <7.0 Performed By: #### G MICK #### Point of Care testing , Basic Metabolic Panelon 12-0 Anion gap [Moles/Vol] Not performed Normal 6.0-15.0 [facility] Comment on above: Performed By: #### B MP, CBC #### [facility] [address] Calcium [Mass/Vol] 8.7 mg/dL Normal 8.6-10.3 The [facility] Comment on above: Performed By: #### B MP, CBC #### [facility] [address] [place] [address] [place] Chloride [Moles/Vol] 97 mmol/L Low 98-107 [facility] Comment on above: Performed By: #### B MP, CBC #### [facility] [address] CO2 [Moles/Vol] 26.0 mmol/L Normal 21.0-31.0 The [facility] Comment on above: Performed By: #### B MP, CBC #### [facility] [address] [place] [address] [place] Creatinine [Mass/Vol] 3.06 mg/dL High 0.60-1.20 [facility] Comment on above: Performed By: #### B MP, CBC #### [facility] [address] Creatinine Clr Calc Pharmacy 18.79 Normal [facility] Comment on above: Performed By: #### B MP, CBC #### [facility] [address] [place] [address] [place] Estimated GFR 15.067 mL/Min Normal The [facility] Comment on above: Performed By: #### B MP, CBC #### [facility] [address] [place] [id number] [place] Glucose [Mass/Vol] 159 mg/dL Significant change up 70-100 [facility] Comment on above: Result Comment: [place] Glucose Reference Range is dependent on time and content of last meal. Glucose of more than 200 mg/dL in a nonstressed, ambulatory subject supports the diagnosis of Diabetes Mellitus. ADA recommended reference range Performed By: #### B MP, CBC #### [facility] [address] Potassium Normal 3.5-5.1 [facility] Comment on above: Result Comment: Spec imen hemolyzed, redraw requested Performed By: #### B MP, CBC #### [facility] [address] Sodium Normal 136-145 [facility] Comment on above: Result Comment: Spec imen hemolyzed, redraw requested Performed By: #### B MP, CBC #### [facility] [address] Urea nitrogen [Mass/Vol] 91 mg/dL High 7-25 [facility] Comment on above: Performed By: #### B MP, CBC #### [facility] [address] Blood estimated average gluc ose determination by estimation from glycated hemoglobinOrdered By: Kavin Escobar on 10-20-2024 Average glucose Estimated from glycated hemoglobin (Bld) [Mass/Vol] Glucose mean value [Mass/volume] in Blood Estimated from glycated hemoglobin [facility] Calcium [Mass/volume] in Ser um or PlasmaOrdered By: Mauri Chavira on 10-20-2024 Calcium [Mass/Vol] Calcium [Mass/volume ] in Serum or Plasma 8.6-10.3 [facility] Carbon dioxide, total [Moles /volume] in Serum or PlasmaOrdered By: Mauri Chavira on 10-20-2024 CO2 [Moles/Vol] Carbon dioxide, tota l [Moles/volume] in Serum or Plasma 21.0-31.0 [facility] Chloride [Moles/volume] in S oziel or PlasmaOrdered By: Mauri Chavira on 10-20-2024 Chloride [Moles/Vol] Chloride [Moles/vol ume] in Serum or Plasma Low 98-107 [facility] Creatinine [Mass/volume] in Serum or PlasmaOrdered By: Mauri Chavira on 10-20-2024 Creatinine [Mass/Vol] Creatinine [Mass/v olume] in Serum or Plasma High 0.60-1.20 [facility] Glucose Glucometer (BldC) [M ass/Vol]Ordered By: Kavin Escobar on 10-20-2024 Glucose [Mass/Vol] Capillary blood gluc ose measurement by glucometer (mass/volume) [facility] Comment on above: Random Glucose Refer ence Range is dependent on time and content of last meal. Glucose of more than 200 mg/dL in a nonstressed, ambulatory subject supports the diagnosis of Diabetes Mellitus. Glucose Poct Glucometerson 1 12-21-2023 Glucose [Mass/Vol] 209 mg/dL Normal The On license of [facility] Comment on above: Result Comment: [place] Glucose Reference Range is dependent on time and content of last meal. Glucose of more than 200 mg/dL in a nonstressed, ambulatory subject supports the diagnosis of Diabetes Mellitus. PERFORMED BY: [place] [id number] PATHOLOGIST [employer] MAY HYDE M.D. Performed By: #### B PRESS TECHNICIAN, HS TROP, PT, CBC, BMP #### [facility] [address] [place] [address] [facility] Glucose [Mass/Vol] 164 mg/dL Normal The On license of [facility] Comment on above: Result Comment: [place] Glucose Reference Range is dependent on time and content of last meal. Glucose of more than 200 mg/dL in a nonstressed, ambulatory subject supports the diagnosis of Diabetes Mellitus. PERFORMED BY: [facility] [address] [facility]. [place] [id number] PATHOLOGIST [employer] MAY HYDE M.D. Performed By: #### B PRESS TECHNICIAN, HS TROP, PT, CBC, BMP #### [facility] [address] [place] [address] [place] Glucose [Mass/volume] in Ser um or PlasmaOrdered By: Mauri Chavira on 10-20-2024 Glucose [Mass/Vol] Glucose [Mass/volume ] in Serum or Plasma Invalid Interpretation Code 70-100 [facility] Comment on above: [place]: [id number] on [id number] recommended reference rangeRandom Glucose Reference Range is dependent on time and content of last meal. Glucose of more than 200 mg/dL in a nonstressed, ambulatory subject supports the diagnosis of Diabetes Mellitus. Hemoglobin A1c/Hemoglobin.to vinicio in BloodOrdered By: Kavin Escobar on 10-20-2024 HbA1c (Bld) [Mass fraction] Hemoglobin A1c percentage High 4.3-5.6 [facility] Comment on above: Increased risk for d iabetes: 5.7 - 6.4diabetes: >6.4glycemic control for adults with diabetes: <7.0 Magnesiumon 10-20-2024 Magnesium Normal 1.9-2.7 [facility] Comment on above: Result Comment: Spec imen hemolyzed, redraw requested PERFORMED BY: [place] [address] PATHOLOGIST [employer] MAY HYDE M.D. Performed By: #### B MP, CBC #### [address] Magnesium [Mass/volume] in S oziel or PlasmaOrdered By: Mauri Chavira on 10-20-2024 Magnesium [Mass/Vol] Magnesium [Mass/vol ume] in Serum or Plasma 1.9-2.7 [facility] No Panel InformationOrdered By: Mauri Chavira on 10-20-2024 Estimated GFR (CKD-EPI) 15.067 mL/Min [facility] Creatinine Clearance (Chem 18.79 [facility] Potassium [Moles/volume] in Serum or PlasmaOrdered By: Mauri Chavira on 10-20-2024 Potassium [Moles/Vol] Potassium [Moles/v olume] in Serum or Plasma 3.5-5.1 [facility] Redraw Magnesiumon Magnesium [Mass/Vol] 1.9 mg/dL Normal 1.9-2.7 [facility] Comment on above: Result Comment: PERF ORMED BY: [address] [address] PATHOLOGIST [employer] MAY HYDE M.D. Performed By: #### G LULS #### Point of Care testing , Redraw Magnesium Normal 1.9-2.7 The [facility] Comment on above: Result Comment: Spec imen hemolyzed, redraw requested PERFORMED BY: [facility] [place] [address] PATHOLOGIST [employer] MAY HYDE M.D. Performed By: #### G LULS #### Point of Care testing , Redraw Potassiumon Potassium [Moles/Vol] 4.0 mmol/L Normal 3.5-5.1 [facility] Comment on above: Performed By: #### G LULS #### Point of Care testing , Redraw Potassium Normal 3.5-5.1 The [facility] Comment on above: Result Comment: Spec imen hemolyzed, redraw requested Performed By: #### G LULS #### Point of Care testing , Redraw Sodiumon 10-20-2024 Sodium [Moles/Vol] 134 mmol/L Low 136-145 The On license of [facility] Comment on above: Performed By: #### G LULS #### Point of Care testing , Serum or plasma anion gap de terminationOrdered By: Mauri Chavira on 10-20-2024 Anion gap [Moles/Vol] Serum or plasma an ion gap determination [facility] Comment on above: Test not performed Sodium [Moles/volume] in Ser um or PlasmaOrdered By: Mauri Chavira on 10-20-2024 Sodium [Moles/Vol] Sodium [Moles/volume ] in Serum or Plasma Low 136-145 [facility] Urea nitrogen [Mass/volume] in Serum or PlasmaOrdered By: Mauri Chavira on 10-20-2024 Urea nitrogen [Mass/Vol] Urea nitrogen [Mass/volume] in Serum or Plasma High 7-25 [facility] Basic Metabolic Panelon 12-0 Anion gap [Moles/Vol] 14.7 mmol/L Normal 6.0-15.0 Th e [facility] Comment on above: Performed By: #### B PRESS TECHNICIAN, HS TROP, PT, CBC, BMP #### [facility] [address] Calcium [Mass/Vol] 9.1 mg/dL Normal 8.6-10.3 The On license of [facility] Comment on above: Performed By: #### B PRESS TECHNICIAN, HS TROP, PT, CBC, BMP #### [facility] [address] Chloride [Moles/Vol] 95 mmol/L Low 98-107 The [facility] Comment on above: Performed By: #### B PRESS TECHNICIAN, HS TROP, PT, CBC, BMP #### [facility] [address] CO2 [Moles/Vol] 28.6 mmol/L Normal 21.0-31.0 The [facility] Comment on above: Performed By: #### B PRESS TECHNICIAN, HS TROP, PT, CBC, BMP #### [facility] [address] Creatinine [Mass/Vol] 2.71 mg/dL Significan t change up 0.60-1.20 The [facility] Comment on above: Performed By: #### B PRESS TECHNICIAN, HS TROP, PT, CBC, BMP #### [facility] [address] Creatinine Clr Calc Pharmacy 21.49 Normal The [facility] Comment on above: Performed By: #### B PRESS TECHNICIAN, HS TROP, PT, CBC, BMP #### [facility] [address] Estimated GFR 17.432 mL/Min Normal The [facility] Comment on above: Performed By: #### B PRESS TECHNICIAN, HS TROP, PT, CBC, BMP #### [facility] [address] [place] [address] [place] Glucose [Mass/Vol] 288 mg/dL High 70-100 The On license of [facility] Comment on above: Result Comment: [place] Glucose Reference Range is dependent on time and content of last meal. Glucose of more than 200 mg/dL in a nonstressed, ambulatory subject supports the diagnosis of Diabetes Mellitus. ADA recommended reference range Performed By: #### B PRESS TECHNICIAN, HS TROP, PT, CBC, BMP #### [address] Potassium [Moles/Vol] 4.3 mmol/L Normal 3.5-5.1 The [facility] Comment on above: Performed By: #### B PRESS TECHNICIAN, HS TROP, PT, CBC, BMP #### [facility] [address] Sodium [Moles/Vol] 134 mmol/L Low 136-145 The On license of [facility] Comment on above: Performed By: #### B PRESS TECHNICIAN, HS TROP, PT, CBC, BMP #### [address] Urea nitrogen [Mass/Vol] 77 mg/dL High 7-25 The [facility] Comment on above: Performed By: #### B PRESS TECHNICIAN, HS TROP, PT, CBC, BMP #### [address] Glucose Poct Glucometerson 1 12-20-2023 Glucose [Mass/Vol] 222 mg/dL Normal The On license of [facility] Comment on above: Result Comment: [facility] Glucose Reference Range is dependent on time and content of last meal. Glucose of more than 200 mg/dL in a nonstressed, ambulatory subject supports the diagnosis of Diabetes Mellitus. PERFORMED BY: [place] [address] PATHOLOGIST [employer] MAY HYDE M.D. Performed By: #### G LULS #### Point of Care testing , Glucose [Mass/Vol] 306 mg/dL Normal The On license of [facility] Comment on above: Result Comment: [facility] Glucose Reference Range is dependent on time and content of last meal. Glucose of more than 200 mg/dL in a nonstressed, ambulatory subject supports the diagnosis of Diabetes Mellitus. PERFORMED BY: [place] [address] PATHOLOGIST [employer] MAY HYDE M.D. Performed By: #### G LULS #### Point of Care testing , Glucose [Mass/Vol] 342 mg/dL Normal The On license of [facility] Comment on above: Result Comment: [place] Glucose Reference Range is dependent on time and content of last meal. Glucose of more than 200 mg/dL in a nonstressed, ambulatory subject supports the diagnosis of Diabetes Mellitus. PERFORMED BY: [place] [address] PATHOLOGIST [employer] MAY HYDE M.D. Performed By: #### B MP, CBC #### [address] Glucose [Mass/Vol] 267 mg/dL Normal The On license of [facility] Comment on above: Result Comment: [place] Glucose Reference Range is dependent on time and content of last meal. Glucose of more than 200 mg/dL in a nonstressed, ambulatory subject supports the diagnosis of Diabetes Mellitus. PERFORMED BY: [place] [address] PATHOLOGIST [employer] MAY HYDE M.D. Performed By: #### B MP, CBC #### [place] [id number] [facility] Magnesiumon 10-19-2024 Magnesium [Mass/Vol] 2.0 mg/dL Normal 1.9-2.7 The [facility] Comment on above: Result Comment: PERF ORMED BY: [place] [address] PATHOLOGIST [employer] MAY HYDE M.D. Performed By: #### B PRESS TECHNICIAN, HS TROP, PT, CBC, BMP #### [address] Basic Metabolic Panelon 12-0 Anion gap [Moles/Vol] 15.4 mmol/L High 6.0-15.[address] [facility] Comment on above: Order Comment: REY PARKER NOTIFIED. B 3030. Performed By: #### B PRESS TECHNICIAN, HS TROP, PT, CBC, BMP #### [address] Calcium [Mass/Vol] 9.5 mg/dL Normal 8.6-10.3 The On license of [facility] Comment on above: Order Comment: REY PARKER NOTIFIED. SMB 0442. Performed By: #### B PRESS TECHNICIAN, HS TROP, PT, CBC, BMP #### [facility] [address] Chloride [Moles/Vol] 97 mmol/L Low 98-107 The [facility] Comment on above: Order Comment: REY PARKER NOTIFIED. SMB 0442. Performed By: #### B PRESS TECHNICIAN, HS TROP, PT, CBC, BMP #### [address] CO2 [Moles/Vol] 29.7 mmol/L Normal 21.0-31.0 The [facility] Comment on above: Order Comment: REY PARKER NOTIFIED. SMB 0442. Performed By: #### B PRESS TECHNICIAN, HS TROP, PT, CBC, BMP #### [address] Creatinine [Mass/Vol] 1.81 mg/dL High 0.60-1.20 The [facility] Comment on above: Order Comment: REY PARKER NOTIFIED. SMB 0442. Performed By: #### B PRESS TECHNICIAN, HS TROP, PT, CBC, BMP #### [address] Creatinine Clr Calc Pharmacy 32.95 Normal [facility] Comment on above: Order Comment: REY PARKER NOTIFIED. SMB 0442. Performed By: #### B PRESS TECHNICIAN, HS TROP, PT, CBC, BMP #### [address] Estimated GFR 28.294 mL/Min Normal The [facility] Comment on above: Order Comment: REY PARKER NOTIFIED. SMB 0442. Performed By: #### B PRESS TECHNICIAN, HS TROP, PT, CBC, BMP #### [address] Glucose [Mass/Vol] 220 mg/dL High 70-100 The On license of [facility] Comment on above: Order Comment: REY PARKER NOTIFIED. SMB 0442. Result Comment: [place] Glucose Reference Range is dependent on time and content of last meal. Glucose of more than 200 mg/dL in a nonstressed, ambulatory subject supports the diagnosis of Diabetes Mellitus. ADA recommended reference range Performed By: #### B PRESS TECHNICIAN, HS TROP, PT, CBC, BMP #### [facility] [address] Potassium [Moles/Vol] 4.1 mmol/L Normal 3.5-5.1 The [facility] Comment on above: Order Comment: REY PARKER NOTIFIED. SMB 0442. Performed By: #### B PRESS TECHNICIAN, HS TROP, PT, CBC, BMP #### [facility] [address] Sodium [Moles/Vol] 138 mmol/L Normal 136-145 The On license of [facility] Comment on above: Order Comment: REY PARKER NOTIFIED. SMB 0442. Performed By: #### B PRESS TECHNICIAN, HS TROP, PT, CBC, BMP #### [place] [address] [place] Urea nitrogen [Mass/Vol] 66 mg/dL High 7-25 The [facility] Comment on above: Order Comment: REY PARKER NOTIFIED. SMB 0442. Performed By: #### B PRESS TECHNICIAN, HS TROP, PT, CBC, BMP #### [place] [address] [place] Free T4 (Free Thyroxine)on 12-19-2023 Free T4 [Mass/Vol] 1.26 ng/dL High 0.61-1.12 The On license of [facility] Comment on above: Order Comment: REY PARKER NOTIFIED. SMB 0442. Performed By: #### B PRESS TECHNICIAN, HS TROP, PT, CBC, BMP #### [address] Glucose Poct Glucometerson 12-19-2023 Glucose [Mass/Vol] 329 mg/dL Normal The On license of [facility] Comment on above: Result Comment: [place] Glucose Reference Range is dependent on time and content of last meal. Glucose of more than 200 mg/dL in a nonstressed, ambulatory subject supports the diagnosis of Diabetes Mellitus. PERFORMED BY: [place] [address] PATHOLOGIST [employer] MAY HYDE M.D. Performed By: #### B PRESS TECHNICIAN, HS TROP, PT, CBC, BMP #### [address] Glucose [Mass/Vol] 210 mg/dL Normal [facility] Comment on above: Result Comment: [place] Glucose Reference Range is dependent on time and content of last meal. Glucose of more than 200 mg/dL in a nonstressed, ambulatory subject supports the diagnosis of Diabetes Mellitus. PERFORMED BY: [place] [address] PATHOLOGIST [employer] MAY HYDE M.D. Performed By: #### B PRESS TECHNICIAN, HS TROP, PT, CBC, BMP #### [place] [address] [place] Glucose [Mass/Vol] 251 mg/dL Normal [facility] Comment on above: Result Comment: [place] Glucose Reference Range is dependent on time and content of last meal. Glucose of more than 200 mg/dL in a nonstressed, ambulatory subject supports the diagnosis of Diabetes Mellitus. PERFORMED BY: [place] [address] PATHOLOGIST [employer] MAY HYDE M.D. Performed By: #### B PRESS TECHNICIAN, HS TROP, PT, CBC, BMP #### [place] [address] [place] Glucose [Mass/Vol] 207 mg/dL Normal [facility] Comment on above: Result Comment: [place] Glucose Reference Range is dependent on time and content of last meal. Glucose of more than 200 mg/dL in a nonstressed, ambulatory subject supports the diagnosis of Diabetes Mellitus. PERFORMED BY: [place] [address] PATHOLOGIST [employer] MAY HYDE M.D. Performed By: #### B PRESS TECHNICIAN, HS TROP, PT, CBC, BMP #### [address] Glucose [Mass/Vol] 188 mg/dL Normal The On license of [facility] Comment on above: Result Comment: [facility] Glucose Reference Range is dependent on time and content of last meal. Glucose of more than 200 mg/dL in a nonstressed, ambulatory subject supports the diagnosis of Diabetes Mellitus. PERFORMED BY: [place] [address] PATHOLOGIST [employer] MAY HYDE M.D. Performed By: #### B PRESS TECHNICIAN, HS TROP, PT, CBC, BMP #### [address] Magnesiumon 10-18-2024 Magnesium [Mass/Vol] 2.1 mg/dL Normal 1.9-2.7 The [facility] Comment on above: Order Comment: REY PARKER NOTIFIED. SMB 0442. Performed By: #### B PRESS TECHNICIAN, HS TROP, PT, CBC, BMP #### [address] Serum or plasma thyroperoxid ase antibody assay (units/volume)Ordered By: Mauri Chavira on 10-18-2024 TPO Ab Qn Serum or plasma thyroperoxidase antibody assay (units/volume) 0-34 [facility] Comment on above: Performed at: [employer] [facility] [address] [id number] Director: Dimitri Landis PhD, Phone: [phone] Thyroid Peroxidase Antibodie son 10-18-2024 Thyroid Peroxidase Antibodies <9 Normal 0-34 [facility] Comment on above: Order Comment: REY PARKER NOTIFIED. SMB 0442. Result Comment: Perf ormed at: [facility] - [facility] [address] [id number] Health Service Worker: Dimitri Landis PhD, Phone: [phone] PERFORMED BY: [place] [address] PATHOLOGIST [employer] MAY HYDE M.D. Performed By: #### B PRESS TECHNICIAN, HS TROP, PT, CBC, BMP #### [facility] [address] [place] [id number] [facility] Thyroid Stimulating Hormoneo n 10-18-2024 TSH Qn 1.86 m[IU]/L Normal 0.45-5.33 The [facility] Comment on above: Order Comment: REY PARKER NOTIFIED. SMB [id number]. Result Comment: PERF ORMED BY: [address] [place] [address] PATHOLOGIST [employer] MAY HYDE M.D. Performed By: #### B PRESS TECHNICIAN, HS TROP, PT, CBC, BMP #### [facility] [address] Thyrotropin [Units/volume] i n Serum or PlasmaOrdered By: Mauri Chavira on 10-18-2024 TSH Qn Thyrotropin [Units/volume] in Serum or Plasma 0.45-5.33 [facility] Thyroxine (T4) free [Mass/vo lume] in Serum or PlasmaOrdered By: Mauri Chavira on 10-18-2024 Free T4 [Mass/Vol] Thyroxine (T4) free [Mass/volume] in Serum or Plasma High 0.61-1.12 [facility] Alanine aminotransferase [En zymatic activity/volume] in Serum or PlasmaOrdered By: Mauri Chavira on 10-17-2024 ALT [Catalytic activity/Vol] Alanine aminotransferase [Enzymatic activity/volume] in Serum or Plasma 7-52 [facility] Albumin [Mass/volume] in Ser um or Plasma by Bromocresol green (BCG) dye binding methoOrdered By: Mauri Chavira on 10-17-2024 Albumin BCG dye [Mass/Vol] Albumin [Mass/volume] in Serum or Plasma by Bromocresol green (BCG) dye binding metho 3.5-5.7 [facility] Alkaline phosphatase [Enzyma tic activity/volume] in Serum or PlasmaOrdered By: Mauri Chavira on 10-17-2024 ALP [Catalytic activity/Vol] Alkaline phosphatase [Enzymatic activity/volume] in Serum or Plasma 34-104 [facility] Aspartate aminotransferase [ Enzymatic activity/volume] in Serum or PlasmaOrdered By: Mauri Chavira on 10-17-2024 AST [Catalytic activity/Vol] Aspartate aminotransferase [Enzymatic activity/volume] in Serum or Plasma 13-39 [facility] Basophils Auto (Bld) [#/Vol] Ordered By: Mauri Chavira on 10-17-2024 Basophils (Bld) [#/Vol] Automated basophil count 0.0-0.2 [facility] Basophils/100 WBC Auto (Bld) Ordered By: Mauri Chavira on 10-17-2024 Basophils/100 WBC (Bld) Automated basophil % . [facility] Bilirubin.total [Mass/volume ] in Serum or PlasmaOrdered By: Mauri Chavira on 10-17-2024 Bilirubin [Mass/Vol] Bilirubin.total [Mass/volume] in Serum or Plasma 0.3-1.0 [facility] Complete Blood Count Auto Di ffon 10-17-2024 Basophils (Bld) [#/Vol] 0.1 10*3/uL Normal 0.0-0.2 [facility] Comment on above: Result Comment: PERF ORMED BY: [place] [address] PATHOLOGIST [employer] MAY HYDE M.D. Performed By: #### B MP, CBC #### [address] Basophils/100 WBC (Bld) 0.8 % Normal . [facility] Comment on above: Performed By: #### B MP, CBC #### [address] Eosinophils (Bld) [#/Vol] 0.1 10*3/uL Normal 0.0-0.45 [facility] Comment on above: Performed By: #### B MP, CBC #### [place] [address] [place] Eosinophils/100 WBC (Bld) 0.7 % Normal . [facility] Comment on above: Performed By: #### B MP, CBC #### [address] Erythrocyte distribution width (RBC) [Ratio] 15.4 % High 11.9-15.3 [facility] Comment on above: Performed By: #### B MP, CBC #### [address] Hematocrit (Bld) [Volume fraction] 40.4 % Normal 34.0-46.4 [facility] Comment on above: Performed By: #### B MP, CBC #### [address] Hemoglobin (Bld) [Mass/Vol] 13.3 g/dL Normal 11.8-15.4 [facility] Comment on above: Performed By: #### B MP, CBC #### [address] Lymphocytes (Bld) [#/Vol] 1.4 10*3/uL Normal 1.00-4.8 [facility] Comment on above: Performed By: #### B MP, CBC #### [address] Lymphocytes/100 WBC (Bld) 15.2 % Normal . [facility] Comment on above: Performed By: #### B MP, CBC #### [address] MCH (RBC) [Entitic mass] 29.3 pg Normal 24.7-34.3 [facility] Comment on above: Performed By: #### B MP, CBC #### [address] MCV (RBC) [Entitic vol] 88.8 fL Normal 80-100 [facility] Comment on above: Performed By: #### B MP, CBC #### [address] Mean Corpuscular HGB Conc 33.0 g/dL Normal 32.0-35.0 [facility] Comment on above: Performed By: #### B MP, CBC #### [address] Monocytes (Bld) [#/Vol] 0.7 10*3/uL Normal 0.0-0.8 [facility] Comment on above: Performed By: #### B MP, CBC #### [facility] [address] [place] [address] [place] Monocytes/100 WBC (Bld) 7.2 % Normal . [facility] Comment on above: Performed By: #### B MP, CBC #### [facility] [address] [place] [address] [place] Neutrophils (Bld) [#/Vol] 7.0 10*3/uL Normal 1.8-7.7 [facility] Comment on above: Performed By: #### B MP, CBC #### [facility] [address] Neutrophils/100 WBC (Bld) 76.1 % Normal . [facility] Comment on above: Performed By: #### B MP, CBC #### [facility] [address] NRBC% 0.0 /100{WBC} Normal 0-0.[address] [facility] Comment on above: Performed By: #### B MP, CBC #### [facility] [address] [place] [address] [place] Platelet mean volume (Bld) [Entitic vol] 9.5 fL Normal 6.3-10.7 [facility] Comment on above: Performed By: #### B MP, CBC #### [facility] [address] [place] [address] [place] Platelets (Bld) [#/Vol] 183 10*3/uL Normal 150-450 The [facility] Comment on above: Performed By: #### B MP, CBC #### [facility] [address] [place] [address] [place] RBC (Bld) [#/Vol] 4.55 10*6/uL Normal 3.60-5.[address] [facility] Comment on above: Performed By: #### B MP, CBC #### [facility] [address] [place] [address] [place] WBC (Bld) [#/Vol] 9.2 10*3/uL Normal 3.8-11.6 The On license of [facility] Comment on above: Performed By: #### B MP, CBC #### [address] Comprehensive Metabolic Pane daniele 10-17-2024 Albumin [Mass/Vol] 3.5 g/dL Normal 3.5-5.7 The On license of [facility] Comment on above: Performed By: #### B MP, CBC #### [address] Albumin/Globulin [Mass ratio] 0.9 {ratio} Normal The [facility] Comment on above: Performed By: #### B MP, CBC #### [address] ALP [Catalytic activity/Vol] 99 U/L Normal 34-104 The [facility] Comment on above: Performed By: #### B MP, CBC #### [address] ALT [Catalytic activity/Vol] 42 U/L Normal 7-52 The [facility] Comment on above: Performed By: #### B MP, CBC #### [address] Anion gap [Moles/Vol] 14.7 mmol/L Normal 6.0-15.[address] [facility] Comment on above: Performed By: #### B MP, CBC #### [address] AST [Catalytic activity/Vol] 35 U/L Normal 13-39 The [facility] Comment on above: Performed By: #### B MP, CBC #### [address] Bilirubin [Mass/Vol] 0.6 mg/dL Normal 0.3-1.0 The [facility] Comment on above: Performed By: #### B MP, CBC #### [address] Calcium [Mass/Vol] 9.6 mg/dL Normal 8.6-10.3 The On license of [facility] Comment on above: Performed By: #### B MP, CBC #### [facility] [address] [place] [address] [place] Chloride [Moles/Vol] 99 mmol/L Normal 98-107 The [facility] Comment on above: Performed By: #### B MP, CBC #### [address] CO2 [Moles/Vol] 25.3 mmol/L Normal 21.0-31.0 The [facility] Comment on above: Performed By: #### B MP, CBC #### [address] Creatinine [Mass/Vol] 1.99 mg/dL High 0.60-1.20 The [facility] Comment on above: Performed By: #### B MP, CBC #### [address] Creatinine Clr Calc Pharmacy 29.98 Normal The [facility] Comment on above: Performed By: #### B MP, CBC #### [address] Estimated GFR 25.252 mL/Min Normal The [facility] Comment on above: Performed By: #### B MP, CBC #### [address] Globulin (S) [Mass/Vol] 3.9 g/dL Normal The [facility] Comment on above: Performed By: #### B MP, CBC #### [address] Glucose [Mass/Vol] 228 mg/dL High 70-100 The On license of [facility] Comment on above: Result Comment: [place] Glucose Reference Range is dependent on time and content of last meal. Glucose of more than 200 mg/dL in a nonstressed, ambulatory subject supports the diagnosis of Diabetes Mellitus. ADA recommended reference range Performed By: #### B MP, CBC #### [address] Potassium [Moles/Vol] 5.0 mmol/L Normal 3.5-5.1 The [facility] Comment on above: Performed By: #### B MP, CBC #### [facility] [address] Protein [Mass/Vol] 7.4 g/dL Normal 6.4-8.9 The On license of [facility] Comment on above: Performed By: #### B MP, CBC #### [facility] [address] Sodium [Moles/Vol] 134 mmol/L Low 136-145 The On license of [facility] Comment on above: Performed By: #### B MP, CBC #### [facility] [address] Urea nitrogen [Mass/Vol] 67 mg/dL High 7-25 The [facility] Comment on above: Performed By: #### B MP, CBC #### [facility] [address] [place] [address] Eosinophils Auto (Bld) [#/Vo l]Ordered By: Mauri Chavira on 10-17-2024 Eosinophils (Bld) [#/Vol] Automated eosinophil count 0.0-0.45 [facility] Eosinophils/100 WBC Auto (Bl d)Ordered By: Mauri Chavira on 10-17-2024 Eosinophils/100 WBC (Bld) Automated eosinophil % . [facility] Erythrocyte distribution wid th Auto (RBC) [Ratio]Ordered By: Mauri Chavira on 10-17-2024 Erythrocyte distribution width (RBC) [Ratio] Erythrocyte distribution width [Ratio] by Automated count High 11.9-15.3 [facility] Globulin Calc (S) [Mass/Vol] Ordered By: Mauri Chavira on 10-17-2024 Globulin (S) [Mass/Vol] Serum globulin measurement by calculation (mass/volume) [facility] Glucose Poct Glucometerson 1 12-18-2023 Glucose [Mass/Vol] 245 mg/dL Normal The On license of [facility] Comment on above: Result Comment: [place] Glucose Reference Range is dependent on time and content of last meal. Glucose of more than 200 mg/dL in a nonstressed, ambulatory subject supports the diagnosis of Diabetes Mellitus. PERFORMED BY: [place] [address] PATHOLOGIST [employer] MAY HYDE M.D. Performed By: #### B MP, CBC #### [address] Glucose [Mass/Vol] 335 mg/dL Normal The [facility] Comment on above: Result Comment: [place] om Glucose Reference Range is dependent on time and content of last meal. Glucose of more than 200 mg/dL in a nonstressed, ambulatory subject supports the diagnosis of Diabetes Mellitus. PERFORMED BY: [place] [address] PATHOLOGIST [employer] MAY HYDE M.D. Performed By: #### B PRESS TECHNICIAN, HS TROP, PT, CBC, BMP #### [address] Glucose [Mass/Vol] 324 mg/dL Normal The On license of [facility] Comment on above: Result Comment: [place] om Glucose Reference Range is dependent on time and content of last meal. Glucose of more than 200 mg/dL in a nonstressed, ambulatory subject supports the diagnosis of Diabetes Mellitus. PERFORMED BY: [place] [address] PATHOLOGIST [employer] MAY YHDE M.D. Performed By: #### B PRESS TECHNICIAN, HS TROP, PT, CBC, BMP #### [place] [address] [place] Glucose [Mass/Vol] 253 mg/dL Normal The On license of [facility] Comment on above: Result Comment: [place] om Glucose Reference Range is dependent on time and content of last meal. Glucose of more than 200 mg/dL in a nonstressed, ambulatory subject supports the diagnosis of Diabetes Mellitus. PERFORMED BY: [place] [address] PATHOLOGIST [employer] MAY HYDE M.D. Performed By: #### B PRESS TECHNICIAN, HS TROP, PT, CBC, BMP #### [place] [address] [facility] Hematocrit Auto (Bld) [Volum e fraction]Ordered By: Mauri Chavira on 10-17-2024 Hematocrit (Bld) [Volume fraction] Hematocrit [Volume Fraction] of Blood by Automated count 34.0-46.4 [facility] Hemoglobin [Mass/volume] in BloodOrdered By: Mauri Chavira on 10-17-2024 Hemoglobin (Bld) [Mass/Vol] Hemoglobin [Mass/volume] in Blood 11.8-15.4 [facility] Leukocytes [#/volume] correc gali for nucleated erythrocytes in Blood by Automated counOrdered By: Mauri Chavira on 10-17-2024 WBC corrected for nucl RBC Auto (Bld) [#/Vol] Leukocytes [#/volume] corrected for nucleated erythrocytes in Blood by Automated coun 3.8-11.6 [facility] Lymphocytes Auto (Bld) [#/Vo l]Ordered By: Mauri Chavira on 10-17-2024 Lymphocytes (Bld) [#/Vol] Lymphocytes [#/volume] in Blood by Automated count 1.00-4.8 [facility] Lymphocytes/100 WBC Auto (Bl d)Ordered By: Mauri Chavira on 10-17-2024 Lymphocytes/100 WBC (Bld) Lymphocytes/100 leukocytes in Blood by Automated count . [facility] MCH Auto (RBC) [Entitic mass ]Ordered By: Mauri Chavira on 10-17-2024 MCH (RBC) [Entitic mass] MCH [Entitic mass] by Automated count 24.7-34.3 [facility] MCHC Auto (RBC) [Mass/Vol]Or dered By: Mauri Chavira on 10-17-2024 MCHC (RBC) [Mass/Vol] MCHC [Mass/volume] by Automated count 32.0-35.0 [facility] MCV Auto (RBC) [Entitic vol] Ordered By: Mauri Chavira on 10-17-2024 MCV (RBC) [Entitic vol] MCV [Entitic volume] by Automated count 80-100 [facility] Magnesiumon 10-17-2024 Magnesium [Mass/Vol] 1.6 mg/dL Low 1.9-2.7 The [facility] Comment on above: Result Comment: PERF ORMED BY: [facility] [address] [facility] [place] [address] PATHOLOGIST [employer] MAY HYDE M.D. Performed By: #### B MP, CBC #### [facility] [address] Monocytes Auto (Bld) [#/Vol] Ordered By: Mauri Chavira on 10-17-2024 Monocytes (Bld) [#/Vol] Automated blood monocyte count 0.0-0.8 [facility] Monocytes/100 WBC Auto (Bld) Ordered By: Mauri Chavira on 10-17-2024 Monocytes/100 WBC (Bld) Automated monocyte % . [facility] Neutrophils Auto (Bld) [#/Vo l]Ordered By: Mauri Chavira on 10-17-2024 Neutrophils (Bld) [#/Vol] Neutrophils [#/volume] in Blood by Automated count 1.8-7.7 [facility] Neutrophils/100 WBC Auto (Bl d)Ordered By: Mauri Chavira on 10-17-2024 Neutrophils/100 WBC (Bld) Automated neutrophil % . [facility] Nucleated erythrocytes [Pres ence] in Blood by Automated countOrdered By: Mauri Chavira on 10-17-2024 Nucleated RBC Auto Ql (Bld) Nucleated erythrocytes [Presence] in Blood by Automated count 0-0.5 [facility] Platelet mean volume Auto (B ld) [Entitic vol]Ordered By: Mauri Chavira on 10-17-2024 Platelet mean volume (Bld) [Entitic vol] Platelet mean volume [Entitic volume] in Blood by Automated count 6.3-10.7 [facility] Platelets Auto (Bld) [#/Vol] Ordered By: Mauri Chavira on 10-17-2024 Platelets (Bld) [#/Vol] Platelets [#/volume] in Blood by Automated count 150-450 [facility] Protein [Mass/volume] in Ser um or PlasmaOrdered By: Mauri Chavira on 10-17-2024 Protein [Mass/Vol] Protein [Mass/volume ] in Serum or Plasma 6.4-8.9 [facility] RBC Auto (Bld) [#/Vol]Ordere d By: Mauri Chavira on 10-17-2024 RBC (Bld) [#/Vol] Erythrocytes [#/volu me] in Blood by Automated count 3.60-5.00 [facility] Serum or plasma albumin/glob ulin mass ratioOrdered By: Mauri Chavira on 10-17-2024 Albumin/Globulin [Mass ratio] Serum or plasma albumin/globulin mass ratio [facility] WBC Auto (Bld) [#/Vol]Ordere d By: Mauri Chavira on 10-17-2024 WBC (Bld) [#/Vol] Leukocytes [#/volume ] in Blood by Automated count 3.8-11.6 [facility] B-Type Natriuretic Peptideon 10-16-2024 Natriuretic peptide B (Bld) [Mass/Vol] 547.0 pg/mL High 5-100 The [facility] Comment on above: Result Comment: PERF ORMED BY: [place] [address] PATHOLOGIST [employer] MAY HYDE M.D. Performed By: #### B MP, CBC #### [address] Basic Metabolic Panelon 12-0 Anion gap [Moles/Vol] 18.1 mmol/L High 6.0-15.0 Th e [facility] Comment on above: Performed By: #### B PRESS TECHNICIAN, HS TROP, PT, CBC, BMP #### [address] Calcium [Mass/Vol] 9.7 mg/dL Significant change down 8.6-10.3 The [facility] Comment on above: Performed By: #### B PRESS TECHNICIAN, HS TROP, PT, CBC, BMP #### [address] Chloride [Moles/Vol] 100 mmol/L Normal 98-107 The [facility] Comment on above: Performed By: #### B PRESS TECHNICIAN, HS TROP, PT, CBC, BMP #### [facility] [address] CO2 [Moles/Vol] 23.3 mmol/L Normal 21.0-31.0 The [facility] Comment on above: Performed By: #### B PRESS TECHNICIAN, HS TROP, PT, CBC, BMP #### [facility] [address] Creatinine [Mass/Vol] 2.14 mg/dL High 0.60-1.20 The [facility] Comment on above: Performed By: #### B PRESS TECHNICIAN, HS TROP, PT, CBC, BMP #### [facility] [address] Creatinine Clr Calc Pharmacy 27.88 Normal The [facility] Comment on above: Result Comment: PERF ORMED BY: [place] [address] PATHOLOGIST [employer] MAY HYDE M.D. Performed By: #### B PRESS TECHNICIAN, HS TROP, PT, CBC, BMP #### [address] Estimated GFR 23.142 mL/Min Normal The [facility] Comment on above: Performed By: #### B PRESS TECHNICIAN, HS TROP, PT, CBC, BMP #### [facility] [address] Glucose [Mass/Vol] 301 mg/dL High 70-100 The On license of [facility] Comment on above: Result Comment: [place] Glucose Reference Range is dependent on time and content of last meal. Glucose of more than 200 mg/dL in a nonstressed, ambulatory subject supports the diagnosis of Diabetes Mellitus. ADA recommended reference range Performed By: #### B PRESS TECHNICIAN, HS TROP, PT, CBC, BMP #### [address] Potassium [Moles/Vol] 6.4 mmol/L Off scale high 3.5-5.1 The [facility] Comment on above: Result Comment: Resu lts called at 1909 on 10/16/24 Critical Result Called to and read back by: ISMA AVILA/RENETTA at: 10/16/2024 19:04:24 by:[id number] Performed By: #### B PRESS TECHNICIAN, HS TROP, PT, CBC, BMP #### [facility] [address] [place] [address] [place] Sodium [Moles/Vol] 135 mmol/L Low 136-145 The On license of [facility] Comment on above: Performed By: #### B PRESS TECHNICIAN, HS TROP, PT, CBC, BMP #### [place] [address] [place] Urea nitrogen [Mass/Vol] 74 mg/dL High 7-25 The [facility] Comment on above: Performed By: #### B PRESS TECHNICIAN, HS TROP, PT, CBC, BMP #### [address] Anion gap [Moles/Vol] 13.8 mmol/L Normal 6.0-15.0 [facility] Comment on above: Performed By: #### B MP, CBC #### [address] Calcium [Mass/Vol] 8.1 mg/dL Low 8.6-10.3 The On license of [facility] Comment on above: Performed By: #### B MP, CBC #### [place] [address] [place] Chloride [Moles/Vol] 104 mmol/L Normal 98-107 The [facility] Comment on above: Performed By: #### B MP, CBC #### [place] [address] [place] CO2 [Moles/Vol] 21.5 mmol/L Normal 21.0-31.0 The [facility] Comment on above: Performed By: #### B MP, CBC #### [place] [address] [place] Creatinine [Mass/Vol] 2.25 mg/dL High 0.60-1.20 The [facility] Comment on above: Performed By: #### B MP, CBC #### [place] [address] [place] Creatinine Clr Calc Pharmacy 5.50 Normal The [facility] Comment on above: Performed By: #### B MP, CBC #### [facility] [address] Estimated GFR 21.792 mL/Min Normal The [facility] Comment on above: Performed By: #### B MP, CBC #### [facility] [address] Glucose [Mass/Vol] 388 mg/dL High 70-100 The On license of [facility] Comment on above: Result Comment: [place] Glucose Reference Range is dependent on time and content of last meal. Glucose of more than 200 mg/dL in a nonstressed, ambulatory subject supports the diagnosis of Diabetes Mellitus. ADA recommended reference range Performed By: #### B MP, CBC #### [address] Potassium [Moles/Vol] 6.3 mmol/L Off scale high 3.5-5.1 The [facility] Comment on above: Result Comment: Crit ical Result Called to and read back by: LYNN KLINE at: 10/16/2024 14:01:43 by:[id number] Performed By: #### B MP, CBC #### [place] [address] [place] Sodium [Moles/Vol] 133 mmol/L Low 136-145 The On license of [facility] Comment on above: Performed By: #### B MP, CBC #### [place] [address] [place] Urea nitrogen [Mass/Vol] 73 mg/dL High 7-25 The [facility] Comment on above: Performed By: #### B MP, CBC #### [facility] [address] Blood carbon dioxide, total measurement by calculation (moles/volume)Ordered By: Kavin Escobar on 10-16-2024 CO2 Calc (Bld) [Moles/Vol] Blood carbon dioxide, total measurement by calculation (moles/volume) Low 23-29 [facility] Chloride (Bld) [Moles/Vol]Or dered By: Kavin Escobar on 10-16-2024 Chloride [Moles/Vol] Whole blood chlorid e measurement 98-109 [facility] Complete Blood Count Auto Di ffon 10-16-2024 Basophils (Bld) [#/Vol] 0.1 10*3/uL Normal 0.0-0.2 The [facility] Comment on above: Result Comment: PERF ORMED BY: [place] [address] PATHOLOGIST [employer] MAY HYDE M.D. Performed By: #### B MP, CBC #### [address] Basophils/100 WBC (Bld) 0.7 % Normal . [facility] Comment on above: Performed By: #### B MP, CBC #### [address] Eosinophils (Bld) [#/Vol] 0.1 10*3/uL Normal 0.0-0.45 The [facility] Comment on above: Performed By: #### B MP, CBC #### [address] Eosinophils/100 WBC (Bld) 0.6 % Normal . [facility] Comment on above: Performed By: #### B MP, CBC #### [address] Erythrocyte distribution width (RBC) [Ratio] 15.2 % Normal 11.9-15.3 The [facility] Comment on above: Performed By: #### B MP, CBC #### [address] Hematocrit (Bld) [Volume fraction] 35.5 % Normal 34.0-46.4 The [facility] Comment on above: Performed By: #### B MP, CBC #### [address] Hemoglobin (Bld) [Mass/Vol] 11.6 g/dL Low 11.8-15.4 The [facility] Comment on above: Performed By: #### B MP, CBC #### [place] [address] Lymphocytes (Bld) [#/Vol] 1.2 10*3/uL Normal 1.00-4.8 The [facility] Comment on above: Performed By: #### B MP, CBC #### [address] Lymphocytes/100 WBC (Bld) 12.5 % Normal . [facility] Comment on above: Performed By: #### B MP, CBC #### [address] MCH (RBC) [Entitic mass] 29.0 pg Normal 24.7-34.3 [facility] Comment on above: Performed By: #### B MP, CBC #### [address] MCV (RBC) [Entitic vol] 89.1 fL Normal 80-100 [facility] Comment on above: Performed By: #### B MP, CBC #### [address] Mean Corpuscular HGB Conc 32.6 g/dL Normal 32.0-35.0 [facility] Comment on above: Performed By: #### B MP, CBC #### [address] Monocytes (Bld) [#/Vol] 0.7 10*3/uL Normal 0.0-0.8 [facility] Comment on above: Performed By: #### B MP, CBC #### [address] Monocytes/100 WBC (Bld) 18.11 % Normal 0.00-20.00 [facility] Comment on above: Performed By: #### B MP, CBC #### [address] Monocytes/100 WBC (Bld) 6.8 % Normal . [facility] Comment on above: Performed By: #### B MP, CBC #### [place] [address] [place] Neutrophils (Bld) [#/Vol] 8.0 10*3/uL High 1.8-7.7 The [facility] Comment on above: Performed By: #### B MP, CBC #### [address] Neutrophils/100 WBC (Bld) 79.4 % Normal . [facility] Comment on above: Performed By: #### B MP, CBC #### [address] NRBC% 0.1 /100{WBC} Normal 0-0.[address] [facility] Comment on above: Performed By: #### B MP, CBC #### [address] Platelet mean volume (Bld) [Entitic vol] 9.7 fL Normal 6.3-10.7 The [facility] Comment on above: Performed By: #### B MP, CBC #### [address] Platelets (Bld) [#/Vol] 181 10*3/uL Normal 150-450 [facility] Comment on above: Performed By: #### B MP, CBC #### [address] RBC (Bld) [#/Vol] 3.98 10*6/uL Normal 3.60-5.[address] [facility] Comment on above: Performed By: #### B MP, CBC #### [address] WBC (Bld) [#/Vol] 10.0 10*3/uL Normal 3.8-11.[address] [facility] Comment on above: Performed By: #### B MP, CBC #### [address] Creatine Kinaseon 10-16-2024 CK [Catalytic activity/Vol] 37 U/L Normal 30-223 [facility] Comment on above: Performed By: #### B MP, CBC #### [place] [id number] [place] Creatine kinase [Enzymatic a ctivity/volume] in Serum or PlasmaOrdered By: Jorge Luis Zavala on 10-16-2024 CK [Catalytic activity/Vol] Creatine kinase [Enzymatic activity/volume] in Serum or Plasma [facility] Creatinine (Bld) [Mass/Vol]O rdered By: Kavin Escobar on 10-16-2024 Creatinine [Mass/Vol] Whole blood creati nine measurement High 0.6-1.3 [facility] Comment on above: ER/ESD physician is notified/shown all ISTAT results.Critical values may be confirmed by laboratory testing ifdeemed necessary by ER attending doctor. ECG 12 lead ECGon 10-16-2024 ECG 12 [address] [facility] [place] [address] Electrocardiograph Report Signed Patient: Joe Call MR#: [id number] 0 : 1945 Acct:[id number] Age/Sex: 79 / F ADM Date: 10/16/24 Loc: Room: [address] [place] [address] Type: DIS IN Attending Dr: Kavin Escobar [...] 1 12/24/23 1516 Normal [facility] ECG 12 lead ECG [facility] [address] [place] [id number] Electrocardiograph Report Signed Patient: Joe Call MR#: [id number] 0 : 1945 Acct:[id number] Age/Sex: 79 / F ADM Date: 10/16/24 Loc: Room: [address] [place] [address] Type: ADM IN Attending Dr: Mauri Chavira [...] Zavala DO 1926 Normal [facility] ECG 12 lead [address] [facility] [place] [address] Electrocardiograph Report Signed Patient: Joe Call MR#: [id number] 0 : 1945 Acct:[id number] Age/Sex: 79 / F ADM Date: 10/16/24 Loc: Room: [address] [place] [address] Type: ADM IN Attending Dr: Mauri Chavira [...] Zavala DO 1926 Normal [facility] Glucose Glucometer (BldC) [M ass/Vol]Ordered By: Kavin Escobar on 10-16-2024 Glucose [Mass/Vol] Capillary blood gluc ose measurement by glucometer (mass/volume) High 70-105 [facility] Glucose Poct Glucometerson 1 12-17-2023 Glucose [Mass/Vol] 266 mg/dL Normal The On license of [facility] Comment on above: Result Comment: [place] Glucose Reference Range is dependent on time and content of last meal. Glucose of more than 200 mg/dL in a nonstressed, ambulatory subject supports the diagnosis of Diabetes Mellitus. PERFORMED BY: [place] [address] PATHOLOGIST [employer] MAY HYDE M.D. Performed By: #### B MP, CBC #### [address] Hemoglobin Calc (Bld) [Mass/ Vol]Ordered By: Kavin Escobar on 10-16-2024 Hemoglobin (Bld) [Mass/Vol] Blood hemoglobin measurement by calculation (mass/volume) 12.0-17.0 [facility] INR in Platelet poor plasma by Coagulation assayOrdered By: Jorge Luis Zavala on 10-16-2024 INR Coag (PPP) [Relative time] INR in Platelet poor plasma by Coagulation assay [facility] Comment on above: INR Therapeutic Rang [...] [Moles/Vol] 104.0 mmol/L Normal 98-109 [facility] [facility] Comment on above: Performed By: #### C MP #### [address] CO2 [Moles/Vol] 22 mmol/L Low 23-29 [facility] Comment on above: Performed By: #### C MP #### [address] Creatinine [Mass/Vol] 2.3 mg/dL High 0.6-1.3 [facility] Comment on above: Result Comment: ER/E SD physician is notified/shown all ISTAT results. Critical values may be confirmed by laboratory testing if deemed necessary by ER attending doctor. Performed By: #### C MP #### [address] Glucose [Mass/Vol] 390 mg/dL High 70-105 The On license of [facility] Comment on above: Result Comment: PERF ORMED BY: [place] [address] PATHOLOGIST [employer] MAY HYDE M.D. Performed By: #### C MP #### [address] Hemoglobin (Bld) [Mass/Vol] 12.2 g/dL Normal 12.0-17.0 [facility] Comment on above: Performed By: #### C MP #### [place] [address] [place] ISTAT Ionized Calcium 1.11 mol/L Low 1.12-1.32 [facility] Comment on above: Performed By: #### C MP #### [address] [place] [address] [place] Potassium [Moles/Vol] 6.4 mmol/L Off scale high 3.5-4.9 [facility] Comment on above: Performed By: #### C MP #### [address] Sodium [Moles/Vol] 134 mmol/L Low 138-146 [facility] Comment on above: Performed By: #### C MP #### [address] Urea nitrogen [Mass/Vol] 69 mg/dL High 8-26 [facility] Comment on above: Performed By: #### C MP #### [address] ISTAT ER Chem8+ PanelOrdered By: Kavin Escobar on 10-16-2024 Hematocrit (Bld) [Volume fraction] 36.0 % Low 38.0-51.0 [facility] Comment on above: Performed By: #### C MP #### [address] Magnesiumon 10-16-2024 Magnesium [Mass/Vol] 1.4 mg/dL Low 1.9-2.7 [facility] Comment on above: Result Comment: PERF ORMED BY: [place] [address] PATHOLOGIST [employer] MAY HYDE M.D. Performed By: #### B MP, CBC #### [address] Monocyte distribution width [Entitic volume] in Blood by AutomatedOrdered By: Jorge Luis Zavala on 10-16-2024 Monocyte distribution width Auto (Bld) [Entitic vol] Monocyte distribution width [Entitic volume] in Blood by Automated 0.00-20.00 [facility] Natriuretic peptide B [Mass/ Vol]Ordered By: Jorge Luis Zavala on 10-16-2024 Natriuretic peptide B (Bld) [Mass/Vol] BNP ser/plas High 5-100 [facility] Potassium (Bld) [Moles/Vol]O rdered By: Kavin Escobar on 10-16-2024 Potassium [Moles/Vol] Whole blood potass ium measurement Critically high 3.5-4.9 [facility] Prothrombin Time INRon 10-16 INR Coag (PPP) [Relative time] 2.6 {INR} Normal [facility] Comment on above: [...] heart valves: 3 - 4.5 PERFORMED BY: [place] [address] PATHOLOGIST [employer] MAY HYDE M.D. Performed By: #### B MP, CBC #### [facility] [address] [place] [address] PT Coag (PPP) [Time] 28.9 s High 9.0-12.9 [facility] Comment on above: Result Comment: A he matocrit value greater than 55% may lead to inaccurate results in coagulation testing. Patients having hematocrit values >55% require a special collection tube for coagulation studies. Please contact the laboratory at [phone] for redraw instructions. Performed By: #### B MP, CBC #### [facility] [address] [place] [address] Prothrombin time (PT)Ordered By: Jorge Luis Zavala on 10-16-2024 PT Coag (PPP) [Time] Prothrombin time (PT) High 9.0- 12.9 [facility] Comment on above: A hematocrit value g reater than 55% may lead to inaccurate results in coagulation testing. Patients having hematocrit values >55% require a special collection tube for coagulation studies. Please contact the laboratory at [phone] for redraw instructions. Sodium (Bld) [Moles/Vol]Orde red By: Kavin Escobar on 10-16-2024 Sodium [Moles/Vol] Whole blood sodium measurement Low 138-146 [facility] Troponin I High Sensitivityo n 10-16-2024 Troponin I High Sensitivity 9.9 pg/mL Normal 0.0-15.0 [facility] Comment on above: Result Comment: PERF ORMED BY: [place] [address] PATHOLOGIST [employer] MAY HYDE M.D. Performed By: #### B MP, CBC #### [address] Troponin I.cardiac [Mass/vol ume] in Serum or Plasma by Detection limit <= 0.01 ng/Ordered By: Jorge Luis Zavala on 10-16-2024 Troponin I.cardiac DL <= 0.01 ng/mL [Mass/Vol] Troponin I.cardiac [Mass/volume] in Serum or Plasma by Detection limit <= 0.01 ng/ 0.0-15.0 [facility] Urea nitrogen (Bld) [Mass/Vo l]Ordered By: Kavin Escobar on 10-16-2024 Urea nitrogen [Mass/Vol] Blood urea nitrogen (BUN) measurement in whole blood (mass/volume) High 8-26 [facility] Whole blood ionized calcium measurement (moles/volume)Ordered By: Kavin Escobar on 10-16-2024 Calcium.ionized (Bld) [Moles/Vol] Whole blood ionized calcium measurement (moles/volume) Low 1.12-1.32 [facility] XR chest 1V portableon 10-16 XR chest 1V portable [facility] Main [place] [address] [place] [address] XRay Report Signed Patient: Joe Call MR#: [id number] 0 : 1945 Acct:[id number] Age/Sex: 79 / F ADM Date: 10/16/24 Loc: ER Room: Type: [facility] ER Attending Dr: Copies to: Jorge Luis [...] Jarred Randolph M.D.10/16/2024 2:10 PM Dictation Location: [facility]-23 Transcribed By: [facility] 10/16/24 1410 Dictated By: Jarred Randolph DO 10/16/24 1407 Signed By: 10/16/24 1410 Normal [facility] 37on 10-08-2024 37 *Cut lisinopril in h rae to 10mg daily. *Follow-up labs in 2 weeks. *Limit fluid intake to 64oz or 2 liters a day. Normal [facility] Office Visiton 10-08-2024 Follow-up visit [id number] Joe Call 1945 F Date Provider Department Center 10/08/2024 [facility] Family History Problem Relation Age of Onset Coronary artery disease Other Diabetes Other Polycystic kidney disease Other Family Status - Relation Status Age at Other Level of Service:97329 [place] OFFICE/OUTPATIENT ESTABLISHED MOD MDM 30 MIN Reason for Visit and Comments: Congestive Heart Failure [127] Hypertension [329535] Atrial Fibrillation [80] Normal [facility] Estimated glomerular filtrat ion rate (GFR) non- Americanon 09-29-2024 GFR/1.73 sq M.predicted among non-blacks MDRD (S/P/Bld) [Vol rate/Area] Estimated glomerular filtration rate (GFR) non- Low >=60 mL/min/1.73 m 2 [facility] Laboratory - Chemistry and C hemistry - challengeon 09-29-2024 Calcium [Mass/Vol] 8.8 mg/dL 8.5-10.1 [facility] Chloride [Moles/Vol] 102 mmol/L 98-107 [facility] CO2 [Moles/Vol] 24.9 mmol/L 21.0-32.0 [facility] Creatinine [Mass/Vol] 1.92 mg/dL High 0.55-1.[address] [facility] GFR/1.73 sq M.predicted MDRD (S/P/Bld) [Vol rate/Area] 31 mL/min/{1.73_m2} Low >=60 mL/min/1.73 m 2 [facility] Glucose [Mass/Vol] 387 mg/dL High 74-106 [facility] Potassium [Moles/Vol] 5.0 mmol/L 3.5-5.[address] [facility] Sodium [Moles/Vol] 136 mmol/L 136-145 [facility] Urea nitrogen [Mass/Vol] 64.0 mg/dL High 7.0-18.0 [facility] Urea nitrogen/Creatinine [Mass ratio] 33.3 mg/mg [facility] Serum or plasma anion gap de terminationon 09-29-2024 Anion gap [Moles/Vol] Serum or plasma an ion gap determination [facility] 37on 09-03-2024 37 *Your kidney functio [...] of breath or worsening leg swelling. Normal [facility] Office Visiton 09-03-2024 Follow-up visit [id number] Joe Call 1945 F Date Provider Department Center 09/03/2024 YAMEL OCAMPO Family History Problem Relation Age of Onset Coronary artery disease Other Diabetes Other Polycystic kidney disease Other Family Status - Relation Status Age at Other Level of Service:37816 [place] OFFICE/OUTPATIENT ESTABLISHED MOD MDM 30 MIN Reason for Visit and Comments: Congestive Heart Failure [127] Atrial Fibrillation [80] Hypertension [055565] Normal [facility] Office Visiton 08-20-2024 Follow-up visit [id number] BsasemJoe Cramer 1945 F Date Provider Department Center 08/20/2024 [facility] Family History Problem Relation Age of Onset Coronary artery disease Other Diabetes Other Polycystic kidney disease Other Family Status - Relation Status Age at Other Level of Service:38208 [place] OFFICE/OUTPATIENT ESTABLISHED MOD MDM 30 MIN Reason for Visit and Comments: Congestive Heart Failure [127] Normal [facility] Basophils Auto (Bld) [#/Vol] on 07-25-2024 Basophils (Bld) [#/Vol] 0.1 10 3/uL 0.0-0.1 [facility] Basophils/100 WBC Auto (Bld) on 07-25-2024 Basophils/100 WBC (Bld) 1.2 % 0.2-2.0 [facility] Eosinophils/100 WBC Auto (Bl d)on 07-25-2024 Eosinophils/100 WBC (Bld) 1.6 % 0.9-7.0 [facility] Erythrocyte distribution wid th Auto (RBC) [Ratio]on 07-25-2024 Erythrocyte distribution width (RBC) [Ratio] 13.7 % 11.0-15.0 [facility] Estimated glomerular filtrat ion rate (GFR) non- Americanon 07-25-2024 GFR/1.73 sq M.predicted among non-blacks MDRD (S/P/Bld) [Vol rate/Area] 47 mL/min/{1.73_m2} Low >=60 [facility] Globulin Calc (S) [Mass/Vol] on 07-25-2024 Globulin (S) [Mass/Vol] 4.7 g/dL [facility] Hematocrit Auto (Bld) [Volum e fraction]on 07-25-2024 Hematocrit (Bld) [Volume fraction] 33.6 % Low 36.0-48.0 [facility] Hemoglobin [Mass/volume] in Bloodon 07-25-2024 Hemoglobin (Bld) [Mass/Vol] 11.0 g/dL Low 12.0-16.0 [facility] Laboratory - Chemistry and C hemistry - challengeon 07-25-2024 Albumin [Mass/Vol] 2.3 g/dL Low 3.4-5.0 [facility] ALP [Catalytic activity/Vol] 101 U/L 46-116 [facility] ALT [Catalytic activity/Vol] 14 U/L 14-59 [facility] AST [Catalytic activity/Vol] 13 U/L Low 15-37 [facility] Bilirubin [Mass/Vol] 0.8 mg/dL 0.2-1.0 [facility] Calcium [Mass/Vol] 8.6 mg/dL 8.5-10.1 [facility] Chloride [Moles/Vol] 102 mmol/L 98-107 [facility] CO2 [Moles/Vol] 27.8 mmol/L 21.0-32.0 [facility] Creatinine [Mass/Vol] 1.13 mg/dL High 0.55-1.[address] [facility] GFR/1.73 sq M.predicted MDRD (S/P/Bld) [Vol rate/Area] 56 mL/min/{1.73_m2} Low >=60 [facility] Glucose [Mass/Vol] 228 mg/dL High 74-106 [facility] Potassium [Moles/Vol] 3.7 mmol/L 3.5-5.[address] [facility] Protein [Mass/Vol] 7.0 g/dL 6.4-8.2 [facility] Sodium [Moles/Vol] 140 mmol/L 136-145 [facility] Urea nitrogen [Mass/Vol] 26.0 mg/dL High 7.0-18.0 [facility] Urea nitrogen/Creatinine [Mass ratio] 23.0 mg/mg [facility] Laboratory - Hematology and Cell countson 07-25-2024 Immature granulocytes/100 WBC (Bld) 0.2 % 0.0-0.5 [facility] Leukocytes [#/volume] correc gali for nucleated erythrocytes in Blood by Automated counon 07-25-2024 WBC corrected for nucl RBC Auto (Bld) [#/Vol] 8.7 10 3/uL 4.0-11.0 [facility] Lymphocytes Auto (Bld) [#/Vo l]on 07-25-2024 Lymphocytes (Bld) [#/Vol] 1.4 10 3/uL 1.2-3.8 [facility] Lymphocytes/100 WBC Auto (Bl d)on 07-25-2024 Lymphocytes/100 WBC (Bld) 15.9 % Low 20.5-60.0 [facility] MCH Auto (RBC) [Entitic mass ]on 07-25-2024 MCH (RBC) [Entitic mass] 29.7 pg 26.7-34.0 [facility] MCHC Auto (RBC) [Mass/Vol]on 07-25-2024 MCHC (RBC) [Mass/Vol] 32.7 g/dL 29.9-35.[address] [facility] MCV Auto (RBC) [Entitic vol] on 07-25-2024 MCV (RBC) [Entitic vol] 90.8 fL 81.0-99.0 [facility] Monocytes Auto (Bld) [#/Vol] on 07-25-2024 Monocytes (Bld) [#/Vol] 0.7 10 3/uL 0.3-0.8 [facility] Monocytes/100 WBC Auto (Bld) on 07-25-2024 Monocytes/100 WBC (Bld) 8.2 % 1.7-12.0 [facility] Neutrophils Auto (Bld) [#/Vo l]on 07-25-2024 Neutrophils (Bld) [#/Vol] 6.3 10 3/uL 1.4-6.5 [facility] Neutrophils/100 WBC Auto (Bl d)on 07-25-2024 Neutrophils/100 WBC (Bld) 72.9 % 43.0-75.0 [facility] No Panel Informationon 07-25 Eosinophils # (Auto) 0.1 10 3/uL 0.0-0.[address] [facility] Immature Granulocyte # (Auto) 0.02 10 3/uL 0.00-0.03 [facility] Platelet mean volume Auto (B ld) [Entitic vol]on 07-25-2024 Platelet mean volume (Bld) [Entitic vol] 10.3 fL 9.5-13.5 [facility] Platelets Auto (Bld) [#/Vol] on 07-25-2024 Platelets (Bld) [#/Vol] 239 10 3/uL 150-450 [facility] RBC Auto (Bld) [#/Vol]on RBC (Bld) [#/Vol] 3.70 10 6/uL Low 4.20-5.40 [facility] Serum or plasma albumin/glob ulin mass ratioon 07-25-2024 Albumin/Globulin [Mass ratio] 0.5 {ratio} [facility] Serum or plasma anion gap de terminationon 07-25-2024 Anion gap [Moles/Vol] 13.9 mmol/L [facility] Basophils Auto (Bld) [#/Vol] on 07-24-2024 Basophils (Bld) [#/Vol] 0.1 10 3/uL 0.0-0.1 [facility] Basophils/100 WBC Auto (Bld) on 07-24-2024 Basophils/100 WBC (Bld) 0.7 % 0.2-2.0 [facility] Eosinophils/100 WBC Auto (Bl d)on 07-24-2024 Eosinophils/100 WBC (Bld) 1.7 % 0.9-7.0 [facility] Erythrocyte distribution wid th Auto (RBC) [Ratio]on 07-24-2024 Erythrocyte distribution width (RBC) [Ratio] 13.7 % 11.0-15.0 [facility] Estimated glomerular filtrat ion rate (GFR) non- Americanon 07-24-2024 GFR/1.73 sq M.predicted among non-blacks MDRD (S/P/Bld) [Vol rate/Area] 48 mL/min/{1.73_m2} Low >=60 [facility] Hematocrit Auto (Bld) [Volum e fraction]on 07-24-2024 Hematocrit (Bld) [Volume fraction] 34.5 % Low 36.0-48.0 [facility] Hemoglobin [Mass/volume] in Bloodon 07-24-2024 Hemoglobin (Bld) [Mass/Vol] 11.2 g/dL Low 12.0-16.0 [facility] Laboratory - Chemistry and C hemistry - challengeon 07-24-2024 Calcium [Mass/Vol] 8.9 mg/dL 8.5-10.1 [facility] Chloride [Moles/Vol] 104 mmol/L 98-107 [facility] CO2 [Moles/Vol] 26.1 mmol/L 21.0-32.0 [facility] Creatinine [Mass/Vol] 1.11 mg/dL High 0.55-1.[address] [facility] GFR/1.73 sq M.predicted MDRD (S/P/Bld) [Vol rate/Area] 58 mL/min/{1.73_m2} Low >=60 [facility] Glucose [Mass/Vol] 247 mg/dL High 74-106 [facility] Natriuretic peptide B (Bld) [Mass/Vol] 6277.0 pg/mL High <=1800.0 [facility] Comment on above: RESULTS CALLED TO YOEL STEWARD RN IN ER BY Mira Martinez at 1430 Potassium [Moles/Vol] 4.1 mmol/L 3.5-5.[address] [facility] Sodium [Moles/Vol] 141 mmol/L 136-145 [facility] Urea nitrogen [Mass/Vol] 28.0 mg/dL High 7.0-18.0 [facility] Urea nitrogen/Creatinine [Mass ratio] 25.2 mg/mg [facility] Laboratory - Hematology and Cell countson 07-24-2024 Immature granulocytes/100 WBC (Bld) 0.3 % 0.0-0.5 [facility] Leukocytes [#/volume] correc gali for nucleated erythrocytes in Blood by Automated counon 07-24-2024 WBC corrected for nucl RBC Auto (Bld) [#/Vol] 9.7 10 3/uL 4.0-11.0 [facility] Lymphocytes Auto (Bld) [#/Vo l]on 07-24-2024 Lymphocytes (Bld) [#/Vol] 0.9 10 3/uL Low 1.2-3.8 [facility] Lymphocytes/100 WBC Auto (Bl d)on 07-24-2024 Lymphocytes/100 WBC (Bld) 9.2 % Low 20.5-60.0 [facility] MCH Auto (RBC) [Entitic mass ]on 07-24-2024 MCH (RBC) [Entitic mass] 29.9 pg 26.7-34.0 [facility] MCHC Auto (RBC) [Mass/Vol]on 07-24-2024 MCHC (RBC) [Mass/Vol] 32.5 g/dL 29.9-35.[address] [facility] MCV Auto (RBC) [Entitic vol] on 07-24-2024 MCV (RBC) [Entitic vol] 92.0 fL 81.0-99.0 [facility] Monocytes Auto (Bld) [#/Vol] on 07-24-2024 Monocytes (Bld) [#/Vol] 0.5 10 3/uL 0.3-0.8 [facility] Monocytes/100 WBC Auto (Bld) on 07-24-2024 Monocytes/100 WBC (Bld) 5.3 % 1.7-12.0 [facility] Neutrophils Auto (Bld) [#/Vo l]on 07-24-2024 Neutrophils (Bld) [#/Vol] 8.0 10 3/uL High 1.4-6.5 [facility] Neutrophils/100 WBC Auto (Bl d)on 07-24-2024 Neutrophils/100 WBC (Bld) 82.8 % High 43.0-75.0 [facility] No Panel Informationon 07-24 Eosinophils # (Auto) 0.2 10 3/uL 0.0-0.[address] [facility] Immature Granulocyte # (Auto) 0.03 10 3/uL 0.00-0.03 [facility] Troponin I High Sensitivity 20.5 pg/mL 4.0-51.3 [facility] Comment on above: CUT-OFF POINTS HAVE [...] volume (Bld) [Entitic vol] 10.4 fL 9.5-13.5 [facility] Platelets Auto (Bld) [#/Vol] on 07-24-2024 Platelets (Bld) [#/Vol] 236 10 3/uL 150-450 [facility] RBC Auto (Bld) [#/Vol]on RBC (Bld) [#/Vol] 3.75 10 6/uL Low 4.20-5.40 [facility] Serum or plasma anion gap de terminationon 07-24-2024 Anion gap [Moles/Vol] 15.0 mmol/L Fi [facility] Urine culture routineOrdered By: Shantel Steven on 07-17-2024 Bacteria identified Cx Nom (U) Proteus mirabilis Abnormal [facility] Erythrocyte distribution wid th Auto (RBC) [Ratio]on 07-15-2024 Erythrocyte distribution width (RBC) [Ratio] 13.3 % 11.0-15.0 [facility] Estimated glomerular filtrat ion rate (GFR) non- Americanon 07-15-2024 GFR/1.73 sq M.predicted among non-blacks MDRD (S/P/Bld) [Vol rate/Area] 47 mL/min/{1.73_m2} Low >=60 [facility] Globulin Calc (S) [Mass/Vol] on 07-15-2024 Globulin (S) [Mass/Vol] 4.2 g/dL [facility] Hematocrit Auto (Bld) [Volum e fraction]on 07-15-2024 Hematocrit (Bld) [Volume fraction] 34.9 % Low 36.0-48.0 [facility] Hemoglobin [Mass/volume] in Bloodon 07-15-2024 Hemoglobin (Bld) [Mass/Vol] 11.6 g/dL Low 12.0-16.0 [facility] Laboratory - Chemistry and C hemistry - challengeon 07-15-2024 Bilirubin Ql (U) Negative NEGATIVE [facility] Glucose (U) [Mass/Vol] Negative NEGATIVE [facility] Ketones Ql (U) Negative NEGATIVE [facility] pH (U) 6.5 [pH] 5.0-9.0 [facility] Specific gravity (U) [Rel density] 1.020 1.005-1.025 [facility] Urobilinogen Qn (U) 0.2 {Meka'U}/dL 0.2-1.0 [facility] Albumin [Mass/Vol] 2.6 g/dL Low 3.4-5.0 [facility] ALP [Catalytic activity/Vol] 87 U/L 46-116 [facility] ALT [Catalytic activity/Vol] 18 U/L 14-59 [facility] AST [Catalytic activity/Vol] 14 U/L Low 15-37 [facility] Bilirubin [Mass/Vol] 0.6 mg/dL 0.2-1.0 [facility] Calcium [Mass/Vol] 8.6 mg/dL 8.5-10.1 [facility] Chloride [Moles/Vol] 101 mmol/L 98-107 [facility] CO2 [Moles/Vol] 31.4 mmol/L 21.0-32.0 [facility] Creatinine [Mass/Vol] 1.12 mg/dL High 0.55-1.[address] [facility] GFR/1.73 sq M.predicted MDRD (S/P/Bld) [Vol rate/Area] 57 mL/min/{1.73_m2} Low >=60 [facility] Glucose [Mass/Vol] 153 mg/dL High 74-106 [facility] Natriuretic peptide B (Bld) [Mass/Vol] 3410.0 pg/mL High <=1800.0 [facility] Comment on above: RESULTS CALLED TO Bogdan Robin RN at 0840 Potassium [Moles/Vol] 3.6 mmol/L 3.5-5.[address] [facility] Protein [Mass/Vol] 6.8 g/dL 6.4-8.2 [facility] Sodium [Moles/Vol] 141 mmol/L 136-145 [facility] Urea nitrogen [Mass/Vol] 43.0 mg/dL High 7.0-18.0 [facility] Urea nitrogen/Creatinine [Mass ratio] 38.4 mg/mg [facility] Laboratory - Specimen inform ationon 07-15-2024 Appearance (U) CLEAR CLEAR [facility] Color (U) LT. YELLOW YELLOW [facility] Laboratory - Urinalysison Leukocyte esterase Test strip Ql (U) Negative NEGATIVE [facility] Mucus Ql (Urine sed) NONE SEEN NONE SEEN [facility] Nitrite Ql (U) Negative NEGATIVE [facility] Protein Ql (U) 100 mg/dL Abnormal NEG/TRACE [facility] Leukocytes [#/volume] correc gali for nucleated erythrocytes in Blood by Automated counon 07-15-2024 WBC corrected for nucl RBC Auto (Bld) [#/Vol] 8.5 10 3/uL 4.0-11.0 [facility] MCH Auto (RBC) [Entitic mass ]on 07-15-2024 MCH (RBC) [Entitic mass] 29.9 pg 26.7-34.0 [facility] MCHC Auto (RBC) [Mass/Vol]on 07-15-2024 MCHC (RBC) [Mass/Vol] 33.2 g/dL 29.9-35.[address] [facility] MCV Auto (RBC) [Entitic vol] on 07-15-2024 MCV (RBC) [Entitic vol] 89.9 fL 81.0-99.0 [facility] No Panel Informationon 07-15 Urine Bacteria NONE SEEN #/HPF NONE SEEN [facility] Urine Occult Blood TRACE-I NEGATIVE [facility] Urine RBC 0-2 #/HPF 0-2 [facility] Urine Squamous Epithelial Cells FEW #/LPF Abnormal NONE/RARE [facility] Urine WBC NONE SEEN #/HPF NONE SEEN [facility] NONE SEEN #/HPF NONE SEEN [facility] Negative NEGATIVE [facility] TRACE-I NEGATIVE [facility] CLEAR CLEAR [facility] LT. YELLOW YELLOW [facility] NONE SEEN NONE SEEN [facility] 6.5 5.0-9.0 [facility] 100 mg/dL Abnormal NEG/TRACE [facility] 0-2 #/HPF 0-2 [facility] 1.020 1.005-1.025 [facility] FEW #/LPF Abnormal NONE/RARE [facility] 0.2 EU/dL 0.2-1.0 [facility] Troponin I High Sensitivity 21.3 pg/mL 4.0-51.3 [facility] Comment on above: CUT-OFF POINTS HAVE [...] AND CLINICAL INFORMATION. 3410.0 pg/mL High <=1800.0 [facility] 21.3 pg/mL 4.0-51.3 [facility] 2.6 g/dL Low 3.4-5.0 [facility] 87 U/L 46-116 [facility] 18 U/L 14-59 [facility] 14 U/L Low 15-37 [facility] 38.4 [facility] 43.0 mg/dL High 7.0-18.0 [facility] 8.6 mg/dL 8.5-10.1 [facility] 101 mmol/L 98-107 [facility] 31.4 mmol/L 21.0-32.0 [facility] 1.12 mg/dL High 0.55-1.02 [facility] 57 Low >=60 [facility] 153 mg/dL High 74-106 [facility] 3.6 mmol/L 3.5-5.1 [facility] 141 mmol/L 136-145 [facility] 0.6 mg/dL 0.2-1.0 [facility] 6.8 g/dL 6.4-8.2 [facility] Platelet mean volume Auto (B ld) [Entitic vol]on 07-15-2024 Platelet mean volume (Bld) [Entitic vol] 11.0 fL 9.5-13.5 [facility] Platelets Auto (Bld) [#/Vol] on 07-15-2024 Platelets (Bld) [#/Vol] 177 10 3/uL 150-450 [facility] RBC Auto (Bld) [#/Vol]on RBC (Bld) [#/Vol] 3.88 10 6/uL Low 4.20-5.40 [facility] Serum or plasma albumin/glob ulin mass ratioon 07-15-2024 Albumin/Globulin [Mass ratio] 0.6 {ratio} [facility] Serum or plasma anion gap de terminationon 07-15-2024 Anion gap [Moles/Vol] 12.2 mmol/L [facility] Basophils Auto (Bld) [#/Vol] on 07-14-2024 Basophils (Bld) [#/Vol] 0.1 10 3/uL 0.0-0.1 [facility] Basophils/100 WBC Auto (Bld) on 07-14-2024 Basophils/100 WBC (Bld) 0.9 % 0.2-2.0 [facility] Eosinophils/100 WBC Auto (Bl d)on 07-14-2024 Eosinophils/100 WBC (Bld) 1.3 % 0.9-7.0 [facility] Erythrocyte distribution wid th Auto (RBC) [Ratio]on 07-14-2024 Erythrocyte distribution width (RBC) [Ratio] 13.5 % 11.0-15.0 [facility] Estimated glomerular filtrat ion rate (GFR) non- Americanon 07-14-2024 GFR/1.73 sq M.predicted among non-blacks MDRD (S/P/Bld) [Vol rate/Area] 30 mL/min/{1.73_m2} Low >=60 [facility] Hematocrit Auto (Bld) [Volum e fraction]on 07-14-2024 Hematocrit (Bld) [Volume fraction] 38.5 % 36.0-48.0 [facility] Hemoglobin [Mass/volume] in Bloodon 07-14-2024 Hemoglobin (Bld) [Mass/Vol] 12.8 g/dL 12.0-16.0 [facility] - Chemistry and C hemistry - challengeon 07-14-2024 Calcium [Mass/Vol] 9.0 mg/dL 8.5-10.1 [facility] Chloride [Moles/Vol] 96 mmol/L Low 98-107 [facility] CO2 [Moles/Vol] 35.5 mmol/L High 21.0-32.0 [facility] Creatinine [Mass/Vol] 1.65 mg/dL High 0.55-1.[address] [facility] GFR/1.73 sq M.predicted MDRD (S/P/Bld) [Vol rate/Area] 36 mL/min/{1.73_m2} Low >=60 [facility] Glucose [Mass/Vol] 458 mg/dL High 74-106 [facility] Potassium [Moles/Vol] 4.0 mmol/L 3.5-5.[address] [facility] Sodium [Moles/Vol] 135 mmol/L Low 136-145 [facility] Urea nitrogen [Mass/Vol] 52.0 mg/dL High 7.0-18.0 [facility] Urea nitrogen/Creatinine [Mass ratio] 31.5 mg/mg [facility] - Hematology and Cell countson 07-14-2024 Immature granulocytes/100 WBC (Bld) 0.1 % 0.0-0.5 [facility] Leukocytes [#/volume] correc gali for nucleated erythrocytes in Blood by Automated counon 07-14-2024 WBC corrected for nucl RBC Auto (Bld) [#/Vol] 8.2 10 3/uL 4.0-11.0 [facility] Lymphocytes Auto (Bld) [#/Vo l]on 07-14-2024 Lymphocytes (Bld) [#/Vol] 1.1 10 3/uL Low 1.2-3.8 [facility] Lymphocytes/100 WBC Auto (Bl d)on 07-14-2024 Lymphocytes/100 WBC (Bld) 13.7 % Low 20.5-60.0 [facility] MCH Auto (RBC) [Entitic mass ]on 07-14-2024 MCH (RBC) [Entitic mass] 30.0 pg 26.7-34.0 [facility] MCHC Auto (RBC) [Mass/Vol]on 07-14-2024 MCHC (RBC) [Mass/Vol] 33.2 g/dL 29.9-35.[address] [facility] MCV Auto (RBC) [Entitic vol] on 07-14-2024 MCV (RBC) [Entitic vol] 90.2 fL 81.0-99.0 [facility] Monocytes Auto (Bld) [#/Vol] on 07-14-2024 Monocytes (Bld) [#/Vol] 0.5 10 3/uL 0.3-0.8 [facility] Monocytes/100 WBC Auto (Bld) on 07-14-2024 Monocytes/100 WBC (Bld) 6.6 % 1.7-12.0 [facility] Neutrophils Auto (Bld) [#/Vo l]on 07-14-2024 Neutrophils (Bld) [#/Vol] 6.3 10 3/uL 1.4-6.5 [facility] Neutrophils/100 WBC Auto (Bl d)on 07-14-2024 Neutrophils/100 WBC (Bld) 77.4 % High 43.0-75.0 [facility] No Panel Informationon 07-14 Eosinophils # (Auto) 0.1 10 3/uL 0.0-0.[address] [facility] Immature Granulocyte # (Auto) 0.01 10 3/uL 0.00-0.03 [facility] Troponin I High Sensitivity 17.9 pg/mL 4.0-51.3 [facility] Comment on above: CUT-OFF POINTS HAVE [...] DIAGNOSTIC AND CLINICAL INFORMATION. 17.9 pg/mL 4.0-51.3 [facility] 31.5 [facility] 0.1 10 3/uL 0.0-0.7 [facility] 52.0 mg/dL High 7.0-18.0 [facility] 9.0 mg/dL 8.5-10.1 [facility] 96 mmol/L Low 98-107 [facility] 35.5 mmol/L High 21.0-32.0 [facility] 0.01 10 3/uL 0.00-0.03 [facility] 1.65 mg/dL High 0.55-1.02 [facility] 0.1 % 0.0-0.5 [facility] 36 Low >=60 [facility] 458 mg/dL High 74-106 [facility] 4.0 mmol/L 3.5-5.1 [facility] 135 mmol/L Low 136-145 [facility] Platelet mean volume Auto (B ld) [Entitic vol]on 07-14-2024 Platelet mean volume (Bld) [Entitic vol] 11.0 fL 9.5-13.5 [facility] Platelets Auto (Bld) [#/Vol] on 07-14-2024 Platelets (Bld) [#/Vol] 182 10 3/uL 150-450 [facility] RBC Auto (Bld) [#/Vol]on RBC (Bld) [#/Vol] 4.27 10 6/uL 4.20-5.40 [facility] Serum or plasma anion gap de terminationon 07-14-2024 Anion gap [Moles/Vol] 7.5 mmol/L [facility] Estimated glomerular filtrat ion rate (GFR) non- Americanon 06-24-2024 GFR/1.73 sq M.predicted among non-blacks MDRD (S/P/Bld) [Vol rate/Area] 38 mL/min/{1.73_m2} Low >=60 [facility] - Chemistry and C hemistry - challengeon 06-24-2024 Calcium [Mass/Vol] 8.4 mg/dL Low 8.5-10.1 [facility] Chloride [Moles/Vol] 100 mmol/L 98-107 [facility] CO2 [Moles/Vol] 31.1 mmol/L 21.0-32.0 [facility] Creatinine [Mass/Vol] 1.34 mg/dL High 0.55-1.[address] [facility] GFR/1.73 sq M.predicted MDRD (S/P/Bld) [Vol rate/Area] 46 mL/min/{1.73_m2} Low >=60 [facility] Glucose [Mass/Vol] 222 mg/dL High 74-106 [facility] Potassium [Moles/Vol] 3.6 mmol/L 3.5-5.[address] [facility] Sodium [Moles/Vol] 138 mmol/L 136-145 [facility] Urea nitrogen [Mass/Vol] 32.0 mg/dL High 7.0-18.0 [facility] Urea nitrogen/Creatinine [Mass ratio] 23.9 mg/mg [facility] No Panel Informationon 06-24 23.9 [facility] 32.0 mg/dL High 7.0-18.0 [facility] 8.4 mg/dL Low 8.5-10.1 [facility] 100 mmol/L 98-107 [facility] 31.1 mmol/L 21.0-32.0 [facility] 1.34 mg/dL High 0.55-1.02 [facility] 46 Low >=60 [facility] 222 mg/dL High 74-106 [facility] 3.6 mmol/L 3.5-5.1 [facility] 138 mmol/L 136-145 [facility] Serum or plasma anion gap de terminationon 06-24-2024 Anion gap [Moles/Vol] 10.5 mmol/L [facility] Basophils Auto (Bld) [#/Vol] on 06-10-2024 Basophils (Bld) [#/Vol] 0.1 10 3/uL 0.0-0.1 [facility] Basophils/100 WBC Auto (Bld) on 06-10-2024 Basophils/100 WBC (Bld) 1.0 % 0.2-2.0 [facility] Eosinophils/100 WBC Auto (Bl d)on 06-10-2024 Eosinophils/100 WBC (Bld) 1.3 % 0.9-7.0 [facility] Erythrocyte distribution wid th Auto (RBC) [Ratio]on 06-10-2024 Erythrocyte distribution width (RBC) [Ratio] 14.6 % 11.0-15.0 [facility] Estimated glomerular filtrat ion rate (GFR) non- Americanon 06-10-2024 GFR/1.73 sq M.predicted among non-blacks MDRD (S/P/Bld) [Vol rate/Area] 54 mL/min/{1.73_m2} Low >=60 [facility] Globulin Calc (S) [Mass/Vol] on 06-10-2024 Globulin (S) [Mass/Vol] 4.5 g/dL [facility] Hematocrit Auto (Bld) [Volum e fraction]on 06-10-2024 Hematocrit (Bld) [Volume fraction] 36.8 % 36.0-48.0 [facility] Hemoglobin [Mass/volume] in Bloodon 06-10-2024 Hemoglobin (Bld) [Mass/Vol] 12.1 g/dL 12.0-16.0 [facility] - Chemistry and C hemistry - challengeon 06-10-2024 Albumin [Mass/Vol] 2.4 g/dL Low 3.4-5.0 [facility] ALP [Catalytic activity/Vol] 94 U/L 46-116 [facility] ALT [Catalytic activity/Vol] 13 U/L Low 14-59 [facility] AST [Catalytic activity/Vol] 13 U/L Low 15-37 [facility] Bilirubin [Mass/Vol] 0.9 mg/dL 0.2-1.0 [facility] Calcium [Mass/Vol] 8.9 mg/dL 8.5-10.1 [facility] Chloride [Moles/Vol] 101 mmol/L 98-107 [facility] CO2 [Moles/Vol] 29.4 mmol/L 21.0-32.0 [facility] Creatinine [Mass/Vol] 1.00 mg/dL 0.55-1.[address] [facility] GFR/1.73 sq M.predicted MDRD (S/P/Bld) [Vol rate/Area] mL/min/{1.73_m2} >=60 [facility] Glucose [Mass/Vol] 167 mg/dL High 74-106 [facility] Potassium [Moles/Vol] 3.4 mmol/L Low 3.5-5.[address] [facility] Protein [Mass/Vol] 6.9 g/dL 6.4-8.2 [facility] Sodium [Moles/Vol] 136 mmol/L 136-145 [facility] Urea nitrogen [Mass/Vol] 24.0 mg/dL High 7.0-18.0 [facility] Urea nitrogen/Creatinine [Mass ratio] 24.0 mg/mg [facility] - Hematology and Cell countson 06-10-2024 Immature granulocytes/100 WBC (Bld) 0.3 % 0.0-0.5 [facility] Leukocytes [#/volume] correc gali for nucleated erythrocytes in Blood by Automated counon 06-10-2024 WBC corrected for nucl RBC Auto (Bld) [#/Vol] 7.9 10 3/uL 4.0-11.0 [facility] Lymphocytes Auto (Bld) [#/Vo l]on 06-10-2024 Lymphocytes (Bld) [#/Vol] 1.3 10 3/uL 1.2-3.8 [facility] Lymphocytes/100 WBC Auto (Bl d)on 06-10-2024 Lymphocytes/100 WBC (Bld) 16.8 % Low 20.5-60.0 [facility] MCH Auto (RBC) [Entitic mass ]on 06-10-2024 MCH (RBC) [Entitic mass] 29.8 pg 26.7-34.0 [facility] MCHC Auto (RBC) [Mass/Vol]on 06-10-2024 MCHC (RBC) [Mass/Vol] 32.9 g/dL 29.9-35.[address] [facility] MCV Auto (RBC) [Entitic vol] on 06-10-2024 MCV (RBC) [Entitic vol] 90.6 fL 81.0-99.0 [facility] Monocytes Auto (Bld) [#/Vol] on 06-10-2024 Monocytes (Bld) [#/Vol] 0.8 10 3/uL 0.3-0.8 [facility] Monocytes/100 WBC Auto (Bld) on 06-10-2024 Monocytes/100 WBC (Bld) 9.8 % 1.7-12.0 [facility] Neutrophils Auto (Bld) [#/Vo l]on 06-10-2024 Neutrophils (Bld) [#/Vol] 5.6 10 3/uL 1.4-6.5 [facility] Neutrophils/100 WBC Auto (Bl d)on 06-10-2024 Neutrophils/100 WBC (Bld) 70.8 % 43.0-75.0 [facility] No Panel Informationon 06-10 Eosinophils # (Auto) 0.1 10 3/uL 0.0-0.[address] [facility] Immature Granulocyte # (Auto) 0.02 10 3/uL 0.00-0.03 [facility] 2.4 g/dL Low 3.4-5.0 [facility] 0.1 10 3/uL 0.0-0.7 [facility] 94 U/L 46-116 [facility] 13 U/L Low 15-37 [facility] 24.0 [facility] 0.02 10 3/uL 0.00-0.03 [facility] 24.0 mg/dL High 7.0-18.0 [facility] 0.3 % 0.0-0.5 [facility] 8.9 mg/dL 8.5-10.1 [facility] 101 mmol/L 98-107 [facility] 29.4 mmol/L 21.0-32.0 [facility] 1.00 mg/dL 0.55-1.02 [facility] >60 >=60 [facility] 167 mg/dL High 74-106 [facility] 3.4 mmol/L Low 3.5-5.1 [facility] 136 mmol/L 136-145 [facility] 0.9 mg/dL 0.2-1.0 [facility] 6.9 g/dL 6.4-8.2 [facility] Platelet mean volume Auto (B ld) [Entitic vol]on 06-10-2024 Platelet mean volume (Bld) [Entitic vol] 11.2 fL 9.5-13.5 [facility] Platelets Auto (Bld) [#/Vol] on 06-10-2024 Platelets (Bld) [#/Vol] 189 10 3/uL 150-450 [facility] RBC Auto (Bld) [#/Vol]on RBC (Bld) [#/Vol] 4.06 10 6/uL Low 4.20-5.40 [facility] Serum or plasma albumin/glob ulin mass ratioon 06-10-2024 Albumin/Globulin [Mass ratio] 0.5 {ratio} [facility] Serum or plasma anion gap de terminationon 06-10-2024 Anion gap [Moles/Vol] 9.0 mmol/L [facility] Basophils Auto (Bld) [#/Vol] on 06-09-2024 Basophils (Bld) [#/Vol] 0.1 10 3/uL 0.0-0.1 [facility] Basophils/100 WBC Auto (Bld) on 06-09-2024 Basophils/100 WBC (Bld) 1.0 % 0.2-2.0 [facility] Eosinophils/100 WBC Auto (Bl d)on 06-09-2024 Eosinophils/100 WBC (Bld) 1.5 % 0.9-7.0 [facility] Erythrocyte distribution wid th Auto (RBC) [Ratio]on 06-09-2024 Erythrocyte distribution width (RBC) [Ratio] 14.8 % 11.0-15.0 [facility] Estimated glomerular filtrat ion rate (GFR) non- Americanon 06-09-2024 GFR/1.73 sq M.predicted among non-blacks MDRD (S/P/Bld) [Vol rate/Area] mL/min/{1.73_m2} >=60 [facility] Fibrin D-dimer [Presence] in Platelet poor plasma by Latex agglutinationon 06-09-2024 Fibrin D-dimer LA Ql (PPP) 0.39 mg/L FEU <=0.59 [facility] Comment on above: Increases in D-Dimer [...] on 06-09-2024 Globulin (S) [Mass/Vol] 4.8 g/dL [facility] Hematocrit Auto (Bld) [Volum e fraction]on 06-09-2024 Hematocrit (Bld) [Volume fraction] 37.7 % 36.0-48.0 [facility] Hemoglobin [Mass/volume] in Bloodon 06-09-2024 Hemoglobin (Bld) [Mass/Vol] 12.5 g/dL 12.0-16.0 [facility] - Chemistry and C hemistry - challengeon 06-09-2024 Albumin [Mass/Vol] 2.5 g/dL Low 3.4-5.0 [facility] ALP [Catalytic activity/Vol] 86 U/L 46-116 [facility] ALT [Catalytic activity/Vol] 18 U/L 14-59 [facility] AST [Catalytic activity/Vol] 34 U/L 15-37 [facility] Bilirubin [Mass/Vol] 0.8 mg/dL 0.2-1.0 [facility] Calcium [Mass/Vol] 8.6 mg/dL 8.5-10.1 [facility] Chloride [Moles/Vol] 103 mmol/L 98-107 [facility] CO2 [Moles/Vol] 27.1 mmol/L 21.0-32.0 [facility] Creatinine [Mass/Vol] 0.88 mg/dL 0.55-1.[address] [facility] GFR/1.73 sq M.predicted MDRD (S/P/Bld) [Vol rate/Area] mL/min/{1.73_m2} >=60 [facility] Glucose [Mass/Vol] 142 mg/dL High 74-106 [facility] Lipase [Catalytic activity/Vol] 45.0 U/L 16.0-77.0 [facility] Natriuretic peptide B (Bld) [Mass/Vol] 3488.0 pg/mL High <=1800.0 [facility] Comment on above: RESULTS CALLED TO MAIDA MCGOWAN RN @BY Alla Kevin [phone] Potassium [Moles/Vol] 5.0 mmol/L 3.5-5.[address] [facility] Protein [Mass/Vol] 7.3 g/dL 6.4-8.2 [facility] Sodium [Moles/Vol] 135 mmol/L Low 136-145 [facility] Urea nitrogen [Mass/Vol] 28.0 mg/dL High 7.0-18.0 [facility] Urea nitrogen/Creatinine [Mass ratio] 31.8 mg/mg [facility] - Hematology and Cell countson 06-09-2024 Immature granulocytes/100 WBC (Bld) 0.3 % 0.0-0.5 [facility] - Microbiology an d Antimicrobial susceptibilityon 06-09-2024 SARS-CoV-2 (COVID-19) RNA FERN+probe Ql (Unsp spec) Negative NEGATIVE [facility] Comment on above: This test has [...] Auto (Bld) [#/Vol] 8.9 10 3/uL 4.0-11.0 [facility] Lymphocytes Auto (Bld) [#/Vo l]on 06-09-2024 Lymphocytes (Bld) [#/Vol] 1.3 10 3/uL 1.2-3.8 [facility] Lymphocytes/100 WBC Auto (Bl d)on 06-09-2024 Lymphocytes/100 WBC (Bld) 15.1 % Low 20.5-60.0 [facility] MCH Auto (RBC) [Entitic mass ]on 06-09-2024 MCH (RBC) [Entitic mass] 30.3 pg 26.7-34.0 [facility] MCHC Auto (RBC) [Mass/Vol]on 06-09-2024 MCHC (RBC) [Mass/Vol] 33.2 g/dL 29.9-35.[address] [facility] MCV Auto (RBC) [Entitic vol] on 06-09-2024 MCV (RBC) [Entitic vol] 91.5 fL 81.0-99.0 [facility] Monocytes Auto (Bld) [#/Vol] on 06-09-2024 Monocytes (Bld) [#/Vol] 0.7 10 3/uL 0.3-0.8 [facility] Monocytes/100 WBC Auto (Bld) on 06-09-2024 Monocytes/100 WBC (Bld) 7.9 % 1.7-12.0 [facility] Neutrophils Auto (Bld) [#/Vo l]on 06-09-2024 Neutrophils (Bld) [#/Vol] 6.6 10 3/uL High 1.4-6.5 [facility] Neutrophils/100 WBC Auto (Bl d)on 06-09-2024 Neutrophils/100 WBC (Bld) 74.2 % 43.0-75.0 [facility] No Panel Informationon 06-09 Negative NEGATIVE [facility] Eosinophils # (Auto) 0.1 10 3/uL 0.0-0.[address] [facility] Immature Granulocyte # (Auto) 0.03 10 3/uL 0.00-0.03 [facility] Troponin I High Sensitivity 17.0 pg/mL 4.0-51.3 [facility] Comment on above: CUT-OFF POINTS HAVE [...] AND CLINICAL INFORMATION. 3488.0 pg/mL High <=1800.0 [facility] 45.0 U/L 16.0-77.0 [facility] 17.0 pg/mL 4.0-51.3 [facility] 2.5 g/dL Low 3.4-5.0 [facility] 0.1 10 3/uL 0.0-0.7 [facility] 86 U/L 46-116 [facility] 18 U/L 14-59 [facility] 34 U/L 15-37 [facility] 31.8 [facility] 0.03 10 3/uL 0.00-0.03 [facility] 28.0 mg/dL High 7.0-18.0 [facility] 0.3 % 0.0-0.5 [facility] 8.6 mg/dL 8.5-10.1 [facility] 103 mmol/L 98-107 [facility] 27.1 mmol/L 21.0-32.0 [facility] 0.88 mg/dL 0.55-1.02 [facility] >60 >=60 [facility] 142 mg/dL High 74-106 [facility] 5.0 mmol/L 3.5-5.1 [facility] 135 mmol/L Low 136-145 [facility] 0.8 mg/dL 0.2-1.0 [facility] 7.3 g/dL 6.4-8.2 [facility] Platelet mean volume Auto (B ld) [Entitic vol]on 06-09-2024 Platelet mean volume (Bld) [Entitic vol] 12.4 fL 9.5-13.5 [facility] Platelets Auto (Bld) [#/Vol] on 06-09-2024 Platelets (Bld) [#/Vol] 205 10 3/uL 150-450 [facility] RBC Auto (Bld) [#/Vol]on RBC (Bld) [#/Vol] 4.12 10 6/uL Low 4.20-5.40 [facility] Serum or plasma albumin/glob ulin mass ratioon 06-09-2024 Albumin/Globulin [Mass ratio] 0.5 {ratio} [facility] Serum or plasma anion gap de terminationon 06-09-2024 Anion gap [Moles/Vol] 9.9 mmol/L [facility] Basophils Auto (Bld) [#/Vol] on 06-01-2024 Basophils (Bld) [#/Vol] 0.1 10 3/uL 0.0-0.1 [facility] Basophils/100 WBC Auto (Bld) on 06-01-2024 Basophils/100 WBC (Bld) 0.9 % 0.2-2.0 [facility] Eosinophils/100 WBC Auto (Bl d)on 06-01-2024 Eosinophils/100 WBC (Bld) 1.2 % 0.9-7.0 [facility] Erythrocyte distribution wid th Auto (RBC) [Ratio]on 06-01-2024 Erythrocyte distribution width (RBC) [Ratio] 14.1 % 11.0-15.0 [facility] Estimated glomerular filtrat ion rate (GFR) non- Americanon 06-01-2024 GFR/1.73 sq M.predicted among non-blacks MDRD (S/P/Bld) [Vol rate/Area] 47 mL/min/{1.73_m2} Low >=60 [facility] Globulin Calc (S) [Mass/Vol] on 06-01-2024 Globulin (S) [Mass/Vol] 4.4 g/dL [facility] Hematocrit Auto (Bld) [Volum e fraction]on 06-01-2024 Hematocrit (Bld) [Volume fraction] 37.6 % 36.0-48.0 [facility] Hemoglobin [Mass/volume] in Bloodon 06-01-2024 Hemoglobin (Bld) [Mass/Vol] 12.5 g/dL 12.0-16.0 [facility] - Chemistry and C hemistry - challengeon 06-01-2024 Albumin [Mass/Vol] 2.7 g/dL Low 3.4-5.0 [facility] ALP [Catalytic activity/Vol] 87 U/L 46-116 [facility] ALT [Catalytic activity/Vol] 18 U/L 14-59 [facility] AST [Catalytic activity/Vol] 16 U/L 15-37 [facility] Bilirubin [Mass/Vol] 0.5 mg/dL 0.2-1.0 [facility] Calcium [Mass/Vol] 8.7 mg/dL 8.5-10.1 [facility] Chloride [Moles/Vol] 101 mmol/L 98-107 [facility] CO2 [Moles/Vol] 28.9 mmol/L 21.0-32.0 [facility] Creatinine [Mass/Vol] 1.12 mg/dL High 0.55-1.[address] [facility] GFR/1.73 sq M.predicted MDRD (S/P/Bld) [Vol rate/Area] 57 mL/min/{1.73_m2} Low >=60 [facility] Glucose [Mass/Vol] 232 mg/dL High 74-106 [facility] Potassium [Moles/Vol] 4.1 mmol/L 3.5-5.[address] [facility] Protein [Mass/Vol] 7.1 g/dL 6.4-8.2 [facility] Sodium [Moles/Vol] 137 mmol/L 136-145 [facility] Urea nitrogen [Mass/Vol] 23.0 mg/dL High 7.0-18.0 [facility] Urea nitrogen/Creatinine [Mass ratio] 20.5 mg/mg [facility] - Hematology and Cell countson 06-01-2024 Immature granulocytes/100 WBC (Bld) 0.2 % 0.0-0.5 [facility] Leukocytes [#/volume] correc gali for nucleated erythrocytes in Blood by Automated counon 06-01-2024 WBC corrected for nucl RBC Auto (Bld) [#/Vol] 9.0 10 3/uL 4.0-11.0 [facility] Lymphocytes Auto (Bld) [#/Vo l]on 06-01-2024 Lymphocytes (Bld) [#/Vol] 1.4 10 3/uL 1.2-3.8 [facility] Lymphocytes/100 WBC Auto (Bl d)on 06-01-2024 Lymphocytes/100 WBC (Bld) 15.9 % Low 20.5-60.0 [facility] MCH Auto (RBC) [Entitic mass ]on 06-01-2024 MCH (RBC) [Entitic mass] 29.5 pg 26.7-34.0 [facility] MCHC Auto (RBC) [Mass/Vol]on 06-01-2024 MCHC (RBC) [Mass/Vol] 33.2 g/dL 29.9-35.[address] [facility] MCV Auto (RBC) [Entitic vol] on 06-01-2024 MCV (RBC) [Entitic vol] 88.7 fL 81.0-99.0 [facility] Monocytes Auto (Bld) [#/Vol] on 06-01-2024 Monocytes (Bld) [#/Vol] 0.8 10 3/uL 0.3-0.8 [facility] Monocytes/100 WBC Auto (Bld) on 06-01-2024 Monocytes/100 WBC (Bld) 8.5 % 1.7-12.0 [facility] Neutrophils Auto (Bld) [#/Vo l]on 06-01-2024 Neutrophils (Bld) [#/Vol] 6.6 10 3/uL High 1.4-6.5 [facility] Neutrophils/100 WBC Auto (Bl d)on 06-01-2024 Neutrophils/100 WBC (Bld) 73.3 % 43.0-75.0 [facility] No Panel Informationon 06-01 Eosinophils # (Auto) 0.1 10 3/uL 0.0-0.[address] [facility] Immature Granulocyte # (Auto) 0.02 10 3/uL 0.00-0.03 [facility] 2.7 g/dL Low 3.4-5.0 [facility] 0.1 10 3/uL 0.0-0.7 [facility] 87 U/L 46-116 [facility] 18 U/L 14-59 [facility] 16 U/L 15-37 [facility] 20.5 [facility] 0.02 10 3/uL 0.00-0.03 [facility] 23.0 mg/dL High 7.0-18.0 [facility] 0.2 % 0.0-0.5 [facility] 8.7 mg/dL 8.5-10.1 [facility] 101 mmol/L 98-107 [facility] 28.9 mmol/L 21.0-32.0 [facility] 1.12 mg/dL High 0.55-1.02 [facility] 57 Low >=60 [facility] 232 mg/dL High 74-106 [facility] 4.1 mmol/L 3.5-5.1 [facility] 137 mmol/L 136-145 [facility] 0.5 mg/dL 0.2-1.0 [facility] 7.1 g/dL 6.4-8.2 [facility] Platelet mean volume Auto (B ld) [Entitic vol]on 06-01-2024 Platelet mean volume (Bld) [Entitic vol] 11.1 fL 9.5-13.5 [facility] Platelets Auto (Bld) [#/Vol] on 06-01-2024 Platelets (Bld) [#/Vol] 162 10 3/uL 150-450 [facility] RBC Auto (Bld) [#/Vol]on RBC (Bld) [#/Vol] 4.24 10 6/uL 4.20-5.40 [facility] Serum or plasma albumin/glob ulin mass ratioon 06-01-2024 Albumin/Globulin [Mass ratio] 0.6 {ratio} [facility] Serum or plasma anion gap de terminationon 06-01-2024 Anion gap [Moles/Vol] 11.2 mmol/L [facility] Basophils Auto (Bld) [#/Vol] on 05-26-2024 Basophils (Bld) [#/Vol] 0.1 10 3/uL 0.0-0.1 [facility] Basophils/100 WBC Auto (Bld) on 05-26-2024 Basophils/100 WBC (Bld) 1.1 % 0.2-2.0 [facility] Eosinophils/100 WBC Auto (Bl d)on 05-26-2024 Eosinophils/100 WBC (Bld) 2.1 % 0.9-7.0 [facility] Erythrocyte distribution wid th Auto (RBC) [Ratio]on 05-26-2024 Erythrocyte distribution width (RBC) [Ratio] 14.0 % 11.0-15.0 [facility] Estimated glomerular filtrat ion rate (GFR) non- Americanon 05-26-2024 GFR/1.73 sq M.predicted among non-blacks MDRD (S/P/Bld) [Vol rate/Area] 40 mL/min/{1.73_m2} Low >=60 [facility] Globulin Calc (S) [Mass/Vol] on 05-26-2024 Globulin (S) [Mass/Vol] 4.4 g/dL [facility] Hematocrit Auto (Bld) [Volum e fraction]on 05-26-2024 Hematocrit (Bld) [Volume fraction] 35.9 % Low 36.0-48.0 [facility] Hemoglobin [Mass/volume] in Bloodon 05-26-2024 Hemoglobin (Bld) [Mass/Vol] 12.0 g/dL 12.0-16.0 [facility] - Chemistry and C hemistry - challengeon 05-26-2024 Albumin [Mass/Vol] 2.7 g/dL Low 3.4-5.0 [facility] ALP [Catalytic activity/Vol] 88 U/L 46-116 [facility] ALT [Catalytic activity/Vol] 20 U/L 14-59 [facility] AST [Catalytic activity/Vol] 12 U/L Low 15-37 [facility] Bilirubin [Mass/Vol] 0.5 mg/dL 0.2-1.0 [facility] Calcium [Mass/Vol] 8.9 mg/dL 8.5-10.1 [facility] Chloride [Moles/Vol] 104 mmol/L 98-107 [facility] CO2 [Moles/Vol] 26.7 mmol/L 21.0-32.0 [facility] Creatinine [Mass/Vol] 1.29 mg/dL High 0.55-1.[address] [facility] Free T4 [Mass/Vol] 1.19 ng/dL 0.76-1.46 [facility] GFR/1.73 sq M.predicted MDRD (S/P/Bld) [Vol rate/Area] 49 mL/min/{1.73_m2} Low >=60 [facility] Glucose [Mass/Vol] 233 mg/dL High 74-106 [facility] Natriuretic peptide B (Bld) [Mass/Vol] 2687.0 pg/mL High <=1800.0 [facility] Comment on above: RESULTS CALLED TO DR Miranda ALVAREZ IN ER BY Mira Edwards [id number] Potassium [Moles/Vol] 4.0 mmol/L 3.5-5.[address] [facility] Protein [Mass/Vol] 7.1 g/dL 6.4-8.2 [facility] Sodium [Moles/Vol] 140 mmol/L 136-145 [facility] TSH Qn 4.487 m[IU]/L High 0.358-3.740 [facility] Urea nitrogen [Mass/Vol] 33.0 mg/dL High 7.0-18.0 [facility] Urea nitrogen/Creatinine [Mass ratio] 25.6 mg/mg [facility] - Hematology and Cell countson 05-26-2024 Immature granulocytes/100 WBC (Bld) 0.1 % 0.0-0.5 [facility] - Microbiology an d Antimicrobial susceptibilityon 05-26-2024 S. pyogenes Ag Ql (Unsp spec) Negative [facility] SARS-CoV-2 (COVID-19) RNA FERN+probe Ql (Unsp spec) Not detected NOT DETECTE [facility] Comment on above: THIS TEST IS NOT PEREZ ROVDED BY THE FDA. It has beenauthorized for use under an Emergency Use Authorization. SARS-CoV-2 (COVID-19) RNA FERN+probe Ql (Unsp spec) See comment NOT DETECTE [facility] Comment on above: COVID AG PERFORMED-- - 06/06/24 1120 ---SARS-CoV-2 FERN previously reported as: NOT DETECTEDTHIS TEST IS NOT APPROVDED BY THE FDA. It has beenauthorized for use under an Emergency Use Authorization. SARS-CoV-2 (COVID-19) RNA FERN+probe Ql (Unsp spec) Negative NEGATIVE [facility] Comment on above: This test has [...] Auto (Bld) [#/Vol] 7.3 10 3/uL 4.0-11.0 [facility] Lymphocytes Auto (Bld) [#/Vo l]on 05-26-2024 Lymphocytes (Bld) [#/Vol] 1.3 10 3/uL 1.2-3.8 [facility] Lymphocytes/100 WBC Auto (Bl d)on 05-26-2024 Lymphocytes/100 WBC (Bld) 18.4 % Low 20.5-60.0 [facility] MCH Auto (RBC) [Entitic mass ]on 05-26-2024 MCH (RBC) [Entitic mass] 30.4 pg 26.7-34.0 [facility] MCHC Auto (RBC) [Mass/Vol]on 05-26-2024 MCHC (RBC) [Mass/Vol] 33.4 g/dL 29.9-35.[address] [facility] MCV Auto (RBC) [Entitic vol] on 05-26-2024 MCV (RBC) [Entitic vol] 90.9 fL 81.0-99.0 [facility] Monocytes Auto (Bld) [#/Vol] on 05-26-2024 Monocytes (Bld) [#/Vol] 0.7 10 3/uL 0.3-0.8 [facility] Monocytes/100 WBC Auto (Bld) on 05-26-2024 Monocytes/100 WBC (Bld) 9.5 % 1.7-12.0 [facility] Neutrophils Auto (Bld) [#/Vo l]on 05-26-2024 Neutrophils (Bld) [#/Vol] 5.0 10 3/uL 1.4-6.5 [facility] Neutrophils/100 WBC Auto (Bl d)on 05-26-2024 Neutrophils/100 WBC (Bld) 68.8 % 43.0-75.0 [facility] No Panel Informationon 05-26 See comment NOT DETECTE [facility] Negative [facility] Eosinophils # (Auto) 0.2 10 3/uL 0.0-0.[address] [facility] Immature Granulocyte # (Auto) 0.01 10 3/uL 0.00-0.03 [facility] Monoscreen Negative NEGATIVE [facility] Troponin I High Sensitivity 14.9 pg/mL 4.0-51.3 [facility] Comment on above: CUT-OFF POINTS HAVE [...] DIAGNOSTIC AND CLINICAL INFORMATION. 1.19 ng/dL 0.76-1.46 [facility] 2687.0 pg/mL High <=1800.0 [facility] 14.9 pg/mL 4.0-51.3 [facility] 4.487 u[iU]/mL High 0.358-3.740 [facility] Negative NEGATIVE [facility] 2.7 g/dL Low 3.4-5.0 [facility] 0.2 10 3/uL 0.0-0.7 [facility] 88 U/L 46-116 [facility] 20 U/L 14-59 [facility] 12 U/L Low 15-37 [facility] 25.6 [facility] 0.01 10 3/uL 0.00-0.03 [facility] 33.0 mg/dL High 7.0-18.0 [facility] 0.1 % 0.0-0.5 [facility] 8.9 mg/dL 8.5-10.1 [facility] 104 mmol/L 98-107 [facility] 26.7 mmol/L 21.0-32.0 [facility] 1.29 mg/dL High 0.55-1.02 [facility] 49 Low >=60 [facility] 233 mg/dL High 74-106 [facility] 4.0 mmol/L 3.5-5.1 [facility] 140 mmol/L 136-145 [facility] 0.5 mg/dL 0.2-1.0 [facility] 7.1 g/dL 6.4-8.2 [facility] Platelet mean volume Auto (B ld) [Entitic vol]on 05-26-2024 Platelet mean volume (Bld) [Entitic vol] 10.6 fL 9.5-13.5 [facility] Platelets Auto (Bld) [#/Vol] on 05-26-2024 Platelets (Bld) [#/Vol] 215 10 3/uL 150-450 [facility] RBC Auto (Bld) [#/Vol]on RBC (Bld) [#/Vol] 3.95 10 6/uL Low 4.20-5.40 [facility] Serum or plasma albumin/glob ulin mass ratioon 05-26-2024 Albumin/Globulin [Mass ratio] 0.6 {ratio} [facility] Serum or plasma anion gap de terminationon 05-26-2024 Anion gap [Moles/Vol] 13.3 mmol/L [facility] Estimated glomerular filtrat ion rate (GFR) non- Americanon 05-20-2024 GFR/1.73 sq M.predicted among non-blacks MDRD (S/P/Bld) [Vol rate/Area] 39 mL/min/{1.73_m2} Low >=60 [facility] Laboratory - Chemistry and C hemistry - challengeon 05-20-2024 Calcium [Mass/Vol] 8.8 mg/dL 8.5-10.1 [facility] Chloride [Moles/Vol] 103 mmol/L 98-107 [facility] CO2 [Moles/Vol] 24.3 mmol/L 21.0-32.0 [facility] Creatinine [Mass/Vol] 1.32 mg/dL High 0.55-1.[address] [facility] GFR/1.73 sq M.predicted MDRD (S/P/Bld) [Vol rate/Area] 47 mL/min/{1.73_m2} Low >=60 [facility] Glucose [Mass/Vol] 243 mg/dL High 74-106 [facility] Potassium [Moles/Vol] 5.0 mmol/L 3.5-5.[address] [facility] Sodium [Moles/Vol] 138 mmol/L 136-145 [facility] Urea nitrogen [Mass/Vol] 35.0 mg/dL High 7.0-18.0 [facility] Urea nitrogen/Creatinine [Mass ratio] 26.5 mg/mg [facility] No Panel Informationon 05-20 26.5 [facility] 35.0 mg/dL High 7.0-18.0 [facility] 8.8 mg/dL 8.5-10.1 [facility] 103 mmol/L 98-107 [facility] 24.3 mmol/L 21.0-32.0 [facility] 1.32 mg/dL High 0.55-1.02 [facility] 47 Low >=60 [facility] 243 mg/dL High 74-106 [facility] 5.0 mmol/L 3.5-5.1 [facility] 138 mmol/L 136-145 [facility] Serum or plasma anion gap de terminationon 05-20-2024 Anion gap [Moles/Vol] 15.7 mmol/L [facility] Basophils Auto (Bld) [#/Vol] on 05-06-2024 Basophils (Bld) [#/Vol] 0.1 10 3/uL 0.0-0.1 [facility] Basophils/100 WBC Auto (Bld) on 05-06-2024 Basophils/100 WBC (Bld) 0.9 % 0.2-2.0 [facility] Eosinophils/100 WBC Auto (Bl d)on 05-06-2024 Eosinophils/100 WBC (Bld) 2.7 % 0.9-7.0 [facility] Erythrocyte distribution wid th Auto (RBC) [Ratio]on 05-06-2024 Erythrocyte distribution width (RBC) [Ratio] 13.5 % 11.0-15.0 [facility] Estimated glomerular filtrat ion rate (GFR) non- Americanon 05-06-2024 GFR/1.73 sq M.predicted among non-blacks MDRD (S/P/Bld) [Vol rate/Area] 32 mL/min/{1.73_m2} Low >=60 [facility] Globulin Calc (S) [Mass/Vol] on 05-06-2024 Globulin (S) [Mass/Vol] 4.3 g/dL [facility] Hematocrit Auto (Bld) [Volum e fraction]on 05-06-2024 Hematocrit (Bld) [Volume fraction] 34.6 % Low 36.0-48.0 [facility] Hemoglobin [Mass/volume] in Bloodon 05-06-2024 Hemoglobin (Bld) [Mass/Vol] 11.1 g/dL Low 12.0-16.0 [facility] Laboratory - Chemistry and C hemistry - challengeon 05-06-2024 Albumin [Mass/Vol] 2.5 g/dL Low 3.4-5.0 [facility] ALP [Catalytic activity/Vol] 75 U/L 46-116 [facility] ALT [Catalytic activity/Vol] 16 U/L 14-59 [facility] AST [Catalytic activity/Vol] 11 U/L Low 15-37 [facility] Bilirubin [Mass/Vol] 0.4 mg/dL 0.2-1.0 [facility] Calcium [Mass/Vol] 8.4 mg/dL Low 8.5-10.1 [facility] Chloride [Moles/Vol] 107 mmol/L 98-107 [facility] CO2 [Moles/Vol] 25.7 mmol/L 21.0-32.0 [facility] Creatinine [Mass/Vol] 1.58 mg/dL High 0.55-1.[address] [facility] GFR/1.73 sq M.predicted MDRD (S/P/Bld) [Vol rate/Area] 38 mL/min/{1.73_m2} Low >=60 [facility] Glucose [Mass/Vol] 146 mg/dL High 74-106 [facility] Magnesium [Mass/Vol] 1.6 mg/dL Low 1.8-2.4 [facility] Natriuretic peptide B (Bld) [Mass/Vol] 2762.0 pg/mL High <=1800.0 [facility] Comment on above: RESULTS CALLED TO CLARITZA SELLERS RN @BY Alla Venegas at 0557 Potassium [Moles/Vol] 4.1 mmol/L 3.5-5.[address] [facility] Protein [Mass/Vol] 6.8 g/dL 6.4-8.2 [facility] Sodium [Moles/Vol] 141 mmol/L 136-145 [facility] Urea nitrogen [Mass/Vol] 49.0 mg/dL High 7.0-18.0 [facility] Urea nitrogen/Creatinine [Mass ratio] 31.0 mg/mg [facility] Laboratory - Hematology and Cell countson 05-06-2024 Immature granulocytes/100 WBC (Bld) 0.1 % 0.0-0.5 [facility] Leukocytes [#/volume] correc gali for nucleated erythrocytes in Blood by Automated counon 05-06-2024 WBC corrected for nucl RBC Auto (Bld) [#/Vol] 6.7 10 3/uL 4.0-11.0 [facility] Lymphocytes Auto (Bld) [#/Vo l]on 05-06-2024 Lymphocytes (Bld) [#/Vol] 1.5 10 3/uL 1.2-3.8 [facility] Lymphocytes/100 WBC Auto (Bl d)on 05-06-2024 Lymphocytes/100 WBC (Bld) 21.8 % 20.5-60.0 [facility] MCH Auto (RBC) [Entitic mass ]on 05-06-2024 MCH (RBC) [Entitic mass] 29.0 pg 26.7-34.0 [facility] MCHC Auto (RBC) [Mass/Vol]on 05-06-2024 MCHC (RBC) [Mass/Vol] 32.1 g/dL 29.9-35.[address] [facility] MCV Auto (RBC) [Entitic vol] on 05-06-2024 MCV (RBC) [Entitic vol] 90.3 fL 81.0-99.0 [facility] Monocytes Auto (Bld) [#/Vol] on 05-06-2024 Monocytes (Bld) [#/Vol] 0.7 10 3/uL 0.3-0.8 [facility] Monocytes/100 WBC Auto (Bld) on 05-06-2024 Monocytes/100 WBC (Bld) 10.6 % 1.7-12.0 [facility] Neutrophils Auto (Bld) [#/Vo l]on 05-06-2024 Neutrophils (Bld) [#/Vol] 4.3 10 3/uL 1.4-6.5 [facility] Neutrophils/100 WBC Auto (Bl d)on 05-06-2024 Neutrophils/100 WBC (Bld) 63.9 % 43.0-75.0 [facility] No Panel Informationon 05-06 Eosinophils # (Auto) 0.2 10 3/uL 0.0-0.[address] [facility] Immature Granulocyte # (Auto) 0.01 10 3/uL 0.00-0.03 [facility] Troponin I High Sensitivity 13.2 pg/mL 4.0-51.3 [facility] Comment on above: CUT-OFF POINTS HAVE [...] AND CLINICAL INFORMATION. 2762.0 pg/mL High <=1800.0 [facility] 13.2 pg/mL 4.0-51.3 [facility] 1.6 mg/dL Low 1.8-2.4 [facility] 2.5 g/dL Low 3.4-5.0 [facility] 0.2 10 3/uL 0.0-0.7 [facility] 75 U/L 46-116 [facility] 16 U/L 14-59 [facility] 11 U/L Low 15-37 [facility] 31.0 [facility] 0.01 10 3/uL 0.00-0.03 [facility] 49.0 mg/dL High 7.0-18.0 [facility] 0.1 % 0.0-0.5 [facility] 8.4 mg/dL Low 8.5-10.1 [facility] 107 mmol/L 98-107 [facility] 25.7 mmol/L 21.0-32.0 [facility] 1.58 mg/dL High 0.55-1.02 [facility] 38 Low >=60 [facility] 146 mg/dL High 74-106 [facility] 4.1 mmol/L 3.5-5.1 [facility] 141 mmol/L 136-145 [facility] 0.4 mg/dL 0.2-1.0 [facility] 6.8 g/dL 6.4-8.2 [facility] Platelet mean volume Auto (B ld) [Entitic vol]on 05-06-2024 Platelet mean volume (Bld) [Entitic vol] 11.3 fL 9.5-13.5 [facility] Platelets Auto (Bld) [#/Vol] on 05-06-2024 Platelets (Bld) [#/Vol] 146 10 3/uL Low 150-450 [facility] RBC Auto (Bld) [#/Vol]on RBC (Bld) [#/Vol] 3.83 10 6/uL Low 4.20-5.40 [facility] Serum or plasma albumin/glob ulin mass ratioon 05-06-2024 Albumin/Globulin [Mass ratio] 0.6 {ratio} [facility] Serum or plasma anion gap de terminationon 05-06-2024 Anion gap [Moles/Vol] 12.4 mmol/L [facility] Basophils Auto (Bld) [#/Vol] on 05-05-2024 Basophils (Bld) [#/Vol] 0.1 10 3/uL 0.0-0.1 [facility] Basophils/100 WBC Auto (Bld) on 05-05-2024 Basophils/100 WBC (Bld) 0.9 % 0.2-2.0 [facility] Eosinophils/100 WBC Auto (Bl d)on 05-05-2024 Eosinophils/100 WBC (Bld) 1.9 % 0.9-7.0 [facility] Erythrocyte distribution wid th Auto (RBC) [Ratio]on 05-05-2024 Erythrocyte distribution width (RBC) [Ratio] 13.4 % 11.0-15.0 [facility] Estimated glomerular filtrat ion rate (GFR) non- Americanon 05-05-2024 GFR/1.73 sq M.predicted among non-blacks MDRD (S/P/Bld) [Vol rate/Area] 29 mL/min/{1.73_m2} Low >=60 [facility] Globulin Calc (S) [Mass/Vol] on 05-05-2024 Globulin (S) [Mass/Vol] 4.4 g/dL [facility] Hematocrit Auto (Bld) [Volum e fraction]on 05-05-2024 Hematocrit (Bld) [Volume fraction] 33.8 % Low 36.0-48.0 [facility] Hemoglobin [Mass/volume] in Bloodon 05-05-2024 Hemoglobin (Bld) [Mass/Vol] 11.1 g/dL Low 12.0-16.0 [facility] Laboratory - Chemistry and C hemistry - challengeon 05-05-2024 Albumin [Mass/Vol] 2.6 g/dL Low 3.4-5.0 [facility] ALP [Catalytic activity/Vol] 74 U/L 46-116 [facility] ALT [Catalytic activity/Vol] 17 U/L 14-59 [facility] AST [Catalytic activity/Vol] 12 U/L Low 15-37 [facility] Bilirubin [Mass/Vol] 0.4 mg/dL 0.2-1.0 [facility] Calcium [Mass/Vol] 6.1 mg/dL Low 8.5-10.1 [facility] Chloride [Moles/Vol] 105 mmol/L 98-107 [facility] CO2 [Moles/Vol] 24.1 mmol/L 21.0-32.0 [facility] Creatinine [Mass/Vol] 1.71 mg/dL High 0.55-1.[address] [facility] GFR/1.73 sq M.predicted MDRD (S/P/Bld) [Vol rate/Area] 35 mL/min/{1.73_m2} Low >=60 [facility] Glucose [Mass/Vol] 202 mg/dL High 74-106 [facility] Magnesium [Mass/Vol] 1.5 mg/dL Low 1.8-2.4 [facility] Natriuretic peptide B (Bld) [Mass/Vol] 2725.0 pg/mL High <=1800.0 [facility] Comment on above: RESULTS CALLED TO Frances cMkinnon)@BY Franchesca Huynh MLT at 0547 Potassium [Moles/Vol] 5.9 mmol/L High 3.5-5.[address] [facility] Protein [Mass/Vol] 7.0 g/dL 6.4-8.2 [facility] Sodium [Moles/Vol] 139 mmol/L 136-145 [facility] Urea nitrogen [Mass/Vol] 69.0 mg/dL High 7.0-18.0 [facility] Urea nitrogen/Creatinine [Mass ratio] 40.4 mg/mg [facility] Laboratory - Hematology and Cell countson 05-05-2024 Immature granulocytes/100 WBC (Bld) 0.3 % 0.0-0.5 [facility] Leukocytes [#/volume] correc gali for nucleated erythrocytes in Blood by Automated counon 05-05-2024 WBC corrected for nucl RBC Auto (Bld) [#/Vol] 6.9 10 3/uL 4.0-11.0 [facility] Lymphocytes Auto (Bld) [#/Vo l]on 05-05-2024 Lymphocytes (Bld) [#/Vol] 1.2 10 3/uL 1.2-3.8 [facility] Lymphocytes/100 WBC Auto (Bl d)on 05-05-2024 Lymphocytes/100 WBC (Bld) 18.0 % Low 20.5-60.0 [facility] MCH Auto (RBC) [Entitic mass ]on 05-05-2024 MCH (RBC) [Entitic mass] 29.3 pg 26.7-34.0 [facility] MCHC Auto (RBC) [Mass/Vol]on 05-05-2024 MCHC (RBC) [Mass/Vol] 32.8 g/dL 29.9-35.[address] [facility] MCV Auto (RBC) [Entitic vol] on 05-05-2024 MCV (RBC) [Entitic vol] 89.2 fL 81.0-99.0 [facility] Monocytes Auto (Bld) [#/Vol] on 05-05-2024 Monocytes (Bld) [#/Vol] 0.6 10 3/uL 0.3-0.8 [facility] Monocytes/100 WBC Auto (Bld) on 05-05-2024 Monocytes/100 WBC (Bld) 8.7 % 1.7-12.0 [facility] Neutrophils Auto (Bld) [#/Vo l]on 05-05-2024 Neutrophils (Bld) [#/Vol] 4.8 10 3/uL 1.4-6.5 [facility] Neutrophils/100 WBC Auto (Bl d)on 05-05-2024 Neutrophils/100 WBC (Bld) 70.2 % 43.0-75.0 [facility] No Panel Informationon 05-05 Eosinophils # (Auto) 0.1 10 3/uL 0.0-0.[address] [facility] Immature Granulocyte # (Auto) 0.02 10 3/uL 0.00-0.03 [facility] Troponin I High Sensitivity 14.0 pg/mL 4.0-51.3 [facility] Comment on above: CUT-OFF POINTS HAVE [...] AND CLINICAL INFORMATION. 2725.0 pg/mL High <=1800.0 [facility] 14.0 pg/mL 4.0-51.3 [facility] 1.5 mg/dL Low 1.8-2.4 [facility] 2.6 g/dL Low 3.4-5.0 [facility] 0.1 10 3/uL 0.0-0.7 [facility] 74 U/L 46-116 [facility] 17 U/L 14-59 [facility] 12 U/L Low 15-37 [facility] 40.4 [facility] 0.02 10 3/uL 0.00-0.03 [facility] 69.0 mg/dL High 7.0-18.0 [facility] 0.3 % 0.0-0.5 [facility] 6.1 mg/dL Low 8.5-10.1 [facility] 105 mmol/L 98-107 [facility] 24.1 mmol/L 21.0-32.0 [facility] 1.71 mg/dL High 0.55-1.02 [facility] 35 Low >=60 [facility] 202 mg/dL High 74-106 [facility] 5.9 mmol/L High 3.5-5.1 [facility] 139 mmol/L 136-145 [facility] 0.4 mg/dL 0.2-1.0 [facility] 7.0 g/dL 6.4-8.2 [facility] Platelet mean volume Auto (B ld) [Entitic vol]on 05-05-2024 Platelet mean volume (Bld) [Entitic vol] 11.8 fL 9.5-13.5 [facility] Platelets Auto (Bld) [#/Vol] on 05-05-2024 Platelets (Bld) [#/Vol] 173 10 3/uL 150-450 [facility] RBC Auto (Bld) [#/Vol]on RBC (Bld) [#/Vol] 3.79 10 6/uL Low 4.20-5.40 [facility] Serum or plasma albumin/glob ulin mass ratioon 05-05-2024 Albumin/Globulin [Mass ratio] 0.6 {ratio} [facility] Serum or plasma anion gap de terminationon 05-05-2024 Anion gap [Moles/Vol] 15.8 mmol/L Fi [facility] Basophils Auto (Bld) [#/Vol] on 05-04-2024 Basophils (Bld) [#/Vol] 0.1 10 3/uL 0.0-0.1 [facility] Basophils/100 WBC Auto (Bld) on 05-04-2024 Basophils/100 WBC (Bld) 0.9 % 0.2-2.0 [facility] Eosinophils/100 WBC Auto (Bl d)on 05-04-2024 Eosinophils/100 WBC (Bld) 1.7 % 0.9-7.0 [facility] Erythrocyte distribution wid th Auto (RBC) [Ratio]on 05-04-2024 Erythrocyte distribution width (RBC) [Ratio] 13.6 % 11.0-15.0 [facility] Estimated glomerular filtrat ion rate (GFR) non- Americanon 05-04-2024 GFR/1.73 sq M.predicted among non-blacks MDRD (S/P/Bld) [Vol rate/Area] 21 mL/min/{1.73_m2} Low >=60 [facility] Globulin Calc (S) [Mass/Vol] on 05-04-2024 Globulin (S) [Mass/Vol] 4.9 g/dL [facility] Hematocrit Auto (Bld) [Volum e fraction]on 05-04-2024 Hematocrit (Bld) [Volume fraction] 37.6 % 36.0-48.0 [facility] Hemoglobin [Mass/volume] in Bloodon 05-04-2024 Hemoglobin (Bld) [Mass/Vol] 12.0 g/dL 12.0-16.0 [facility] Laboratory - Chemistry and C hemistry - challengeon 05-04-2024 Bilirubin Ql (U) Negative NEGATIVE [facility] Glucose (U) [Mass/Vol] 250 mg/dL Abnormal NEGATIVE [facility] Ketones Ql (U) Negative NEGATIVE [facility] pH (U) 6.0 [pH] 5.0-9.0 [facility] Specific gravity (U) [Rel density] 1.015 1.005-1.025 [facility] Urobilinogen Qn (U) 0.2 {Meka'U}/dL 0.2-1.0 [facility] Albumin [Mass/Vol] 2.8 g/dL Low 3.4-5.0 [facility] ALP [Catalytic activity/Vol] 86 U/L 46-116 [facility] ALT [Catalytic activity/Vol] 16 U/L 14-59 [facility] Ammonia (P) [Moles/Vol] 12 umol/L 11-32 [facility] AST [Catalytic activity/Vol] 8 U/L Low 15-37 [facility] Bilirubin [Mass/Vol] 0.4 mg/dL 0.2-1.0 [facility] Calcium [Mass/Vol] 8.8 mg/dL 8.5-10.1 [facility] Chloride [Moles/Vol] 101 mmol/L 98-107 [facility] CO2 [Moles/Vol] 22.4 mmol/L 21.0-32.0 [facility] Creatinine [Mass/Vol] 2.24 mg/dL High 0.55-1.[address] [facility] GFR/1.73 sq M.predicted MDRD (S/P/Bld) [Vol rate/Area] 26 mL/min/{1.73_m2} Low >=60 [facility] Glucose [Mass/Vol] 369 mg/dL High 74-106 [facility] Lactate [Moles/Vol] 1.2 mmol/L 0.4-2.0 [facility] Magnesium [Mass/Vol] 1.7 mg/dL Low 1.8-2.4 [facility] Natriuretic peptide B (Bld) [Mass/Vol] 2342.0 pg/mL High <=1800.0 [facility] Comment on above: RESULTS CALLED TO RENETTA Renteria RN @BY Andrea Long MLTat 1126 Potassium [Moles/Vol] 5.6 mmol/L High 3.5-5.[address] [facility] Protein [Mass/Vol] 7.7 g/dL 6.4-8.2 [facility] Sodium [Moles/Vol] 134 mmol/L Low 136-145 [facility] T4 [Mass/Vol] 11.80 ug/dL 4.80-13.90 [facility] TSH Qn 0.933 m[IU]/L 0.358-3.740 [facility] Urea nitrogen [Mass/Vol] 86.0 mg/dL High 7.0-18.0 [facility] Comment on above: RESULTS CALLED TO RENETTA Renteria RN @BY Andrea Long MLTat 1126 Urea nitrogen/Creatinine [Mass ratio] 38.4 mg/mg [facility] Laboratory - Hematology and Cell countson 05-04-2024 Immature granulocytes/100 WBC (Bld) 0.3 % 0.0-0.5 [facility] - Microbiology an d Antimicrobial susceptibilityOrdered By: Carl Morales on 05-04-2024 Bacteria identified Cx Nom (U) [facility] - Specimen inform ationon 05-04-2024 Appearance (U) SLIGHTLY CLOUDY Abnormal CLEAR [facility] Color (U) YELLOW YELLOW [facility] - Urinalysison Hyaline casts LM Ql (Urine sed) RARE [facility] Leukocyte esterase Test strip Ql (U) Negative NEGATIVE [facility] Mucus Ql (Urine sed) NONE SEEN NONE SEEN [facility] Nitrite Ql (U) Negative NEGATIVE [facility] Protein Ql (U) 100 mg/dL Abnormal NEG/TRACE [facility] Leukocytes [#/volume] correc gali for nucleated erythrocytes in Blood by Automated counon 05-04-2024 WBC corrected for nucl RBC Auto (Bld) [#/Vol] 6.9 10 3/uL 4.0-11.0 [facility] Lymphocytes Auto (Bld) [#/Vo l]on 05-04-2024 Lymphocytes (Bld) [#/Vol] 1.2 10 3/uL 1.2-3.8 [facility] Lymphocytes/100 WBC Auto (Bl d)on 05-04-2024 Lymphocytes/100 WBC (Bld) 17.8 % Low 20.5-60.0 [facility] MCH Auto (RBC) [Entitic mass ]on 05-04-2024 MCH (RBC) [Entitic mass] 29.3 pg 26.7-34.0 [facility] MCHC Auto (RBC) [Mass/Vol]on 05-04-2024 MCHC (RBC) [Mass/Vol] 31.9 g/dL 29.9-35.[address] [facility] MCV Auto (RBC) [Entitic vol] on 05-04-2024 MCV (RBC) [Entitic vol] 91.9 fL 81.0-99.0 [facility] Monocytes Auto (Bld) [#/Vol] on 05-04-2024 Monocytes (Bld) [#/Vol] 0.7 10 3/uL 0.3-0.8 [facility] Monocytes/100 WBC Auto (Bld) on 05-04-2024 Monocytes/100 WBC (Bld) 10.4 % 1.7-12.0 [facility] Neutrophils Auto (Bld) [#/Vo l]on 05-04-2024 Neutrophils (Bld) [#/Vol] 4.8 10 3/uL 1.4-6.5 [facility] Neutrophils/100 WBC Auto (Bl d)on 05-04-2024 Neutrophils/100 WBC (Bld) 68.9 % 43.0-75.0 [facility] No Panel Informationon 05-04 Acetone Level Negative NEGATIVE [facility] Negative NEGATIVE [facility] Urine Bacteria MODERATE #/HPF Abnormal NONE SEEN [facility] Urine Culture Reflexed ALREADY ORDERED [facility] Urine Microscopic Review YES [facility] Urine Occult Blood MODERATE Abnormal NEGATIVE [facility] Urine Other Casts SEEN #/LPF Abnormal NONE SEEN [facility] Urine Other Crystals None Seen #/HPF None Seen [facility] Urine RBC 2-5 #/HPF Abnormal 0-2 [facility] Urine Squamous Epithelial Cells FEW #/LPF Abnormal NONE/RARE [facility] Urine WBC 2-5 #/HPF Abnormal NONE SEEN [facility] ALREADY ORDERED [facility] YES [facility] SEEN #/LPF Abnormal NONE SEEN [facility] Negative NEGATIVE [facility] None Seen #/HPF None Seen [facility] MODERATE Abnormal NEGATIVE [facility] MODERATE #/HPF Abnormal NONE SEEN [facility] SLIGHTLY CLOUDY Abnormal CLEAR [facility] RARE [facility] YELLOW YELLOW [facility] NONE SEEN NONE SEEN [facility] 250 mg/dL Abnormal NEGATIVE [facility] 2-5 #/HPF Abnormal NONE SEEN [facility] FEW #/LPF Abnormal NONE/[facility] 6.0 5.0-9.0 [facility] 100 mg/dL Abnormal NEG/TRACE [facility] 1.015 1.005-1.025 [facility] 0.2 EU/dL 0.2-1.0 [facility] Eosinophils # (Auto) 0.1 10 3/uL 0.0-0.[address] [facility] Immature Granulocyte # (Auto) 0.02 10 3/uL 0.00-0.03 [facility] Troponin I High Sensitivity 10.5 pg/mL 4.0-51.3 [facility] Comment on above: CUT-OFF POINTS HAVE [...] Partial Pressure CO2 38.5 mm[Hg] Low 40.0-52.0 [facility] Venous Blood pH 7.353 7.330-7.430 [facility] 0.933 u[iU]/mL 0.358-3.740 [facility] 11.80 ug/dL 4.80-13.90 [facility] 1.7 mg/dL Low 1.8-2.4 [facility] 2342.0 pg/mL High <=1800.0 [facility] 1.2 mmol/L 0.4-2.0 [facility] 10.5 pg/mL 4.0-51.3 [facility] [facility] 12 umol/L 11-32 [facility] 38.5 mm[Hg] Low 40.0-52.0 [facility] 7.353 7.330-7.430 [facility] 2.8 g/dL Low 3.4-5.0 [facility] 0.1 10 3/uL 0.0-0.7 [facility] 86 U/L 46-116 [facility] 16 U/L 14-59 [facility] 8 U/L Low 15-37 [facility] 38.4 [facility] 0.02 10 3/uL 0.00-0.03 [facility] 86.0 mg/dL High 7.0-18.0 [facility] 0.3 % 0.0-0.5 [facility] 8.8 mg/dL 8.5-10.1 [facility] 101 mmol/L 98-107 [facility] 22.4 mmol/L 21.0-32.0 [facility] 2.24 mg/dL High 0.55-1.02 [facility] 26 Low >=60 [facility] 369 mg/dL High 74-106 [facility] 5.6 mmol/L High 3.5-5.1 [facility] 134 mmol/L Low 136-145 [facility] 0.4 mg/dL 0.2-1.0 [facility] 7.7 g/dL 6.4-8.2 [facility] No Panel InformationOrdered By: LAMINE SINGH on 05-04-2024 Blood Culture 1 [facility] Platelet mean volume Auto (B ld) [Entitic vol]on 05-04-2024 Platelet mean volume (Bld) [Entitic vol] 11.4 fL 9.5-13.5 [facility] Platelets Auto (Bld) [#/Vol] on 05-04-2024 Platelets (Bld) [#/Vol] 160 10 3/uL 150-450 [facility] RBC Auto (Bld) [#/Vol]on RBC (Bld) [#/Vol] 4.09 10 6/uL Low 4.20-5.40 [facility] Serum or plasma albumin/glob ulin mass ratioon 05-04-2024 Albumin/Globulin [Mass ratio] 0.6 {ratio} [facility] Serum or plasma anion gap de terminationon 05-04-2024 Anion gap [Moles/Vol] 16.2 mmol/L [facility] Basophils Auto (Bld) [#/Vol] on 05-01-2024 Basophils (Bld) [#/Vol] 0.1 10 3/uL 0.0-0.1 [facility] Basophils/100 WBC Auto (Bld) on 05-01-2024 Basophils/100 WBC (Bld) 0.7 % 0.2-2.0 [facility] Eosinophils/100 WBC Auto (Bl d)on 05-01-2024 Eosinophils/100 WBC (Bld) 2.3 % 0.9-7.0 [facility] Erythrocyte distribution wid th Auto (RBC) [Ratio]on 05-01-2024 Erythrocyte distribution width (RBC) [Ratio] 13.6 % 11.0-15.0 [facility] Estimated glomerular filtrat ion rate (GFR) non- Americanon 05-01-2024 GFR/1.73 sq M.predicted among non-blacks MDRD (S/P/Bld) [Vol rate/Area] 22 mL/min/{1.73_m2} Low >=60 [facility] Globulin Calc (S) [Mass/Vol] on 05-01-2024 Globulin (S) [Mass/Vol] 4.4 g/dL [facility] Hematocrit Auto (Bld) [Volum e fraction]on 05-01-2024 Hematocrit (Bld) [Volume fraction] 37.5 % 36.0-48.0 [facility] Hemoglobin [Mass/volume] in Bloodon 05-01-2024 Hemoglobin (Bld) [Mass/Vol] 12.1 g/dL 12.0-16.0 [facility] Laboratory - Chemistry and C hemistry - challengeon 05-01-2024 Calcium [Mass/Vol] 9.2 mg/dL 8.5-10.1 [facility] Chloride [Moles/Vol] 104 mmol/L 98-107 [facility] CO2 [Moles/Vol] 23.2 mmol/L 21.0-32.0 [facility] Creatinine [Mass/Vol] 2.14 mg/dL High 0.55-1.[address] [facility] GFR/1.73 sq M.predicted MDRD (S/P/Bld) [Vol rate/Area] 27 mL/min/{1.73_m2} Low >=60 [facility] Glucose [Mass/Vol] 220 mg/dL High 74-106 [facility] Potassium [Moles/Vol] 5.3 mmol/L High 3.5-5.[address] [facility] Sodium [Moles/Vol] 134 mmol/L Low 136-145 [facility] Urea nitrogen [Mass/Vol] 87.0 mg/dL High 7.0-18.0 [facility] Comment on above: RESULTS CALLED TO Klaus Michaels RN @BY [employer] [id number] Urea nitrogen/Creatinine [Mass ratio] 40.7 mg/mg [facility] Albumin [Mass/Vol] 2.8 g/dL Low 3.4-5.0 [facility] ALP [Catalytic activity/Vol] 80 U/L 46-116 [facility] ALT [Catalytic activity/Vol] 16 U/L 14-59 [facility] AST [Catalytic activity/Vol] 11 U/L Low 15-37 [facility] Bilirubin [Mass/Vol] 0.4 mg/dL 0.2-1.0 [facility] Natriuretic peptide B (Bld) [Mass/Vol] 1624.0 pg/mL <=1800.0 [facility] Protein [Mass/Vol] 7.2 g/dL 6.4-8.2 [facility] Laboratory - Hematology and Cell countson 05-01-2024 Immature granulocytes/100 WBC (Bld) 0.1 % 0.0-0.5 [facility] Leukocytes [#/volume] correc gali for nucleated erythrocytes in Blood by Automated counon 05-01-2024 WBC corrected for nucl RBC Auto (Bld) [#/Vol] 7.4 10 3/uL 4.0-11.0 [facility] Lymphocytes Auto (Bld) [#/Vo l]on 05-01-2024 Lymphocytes (Bld) [#/Vol] 2.2 10 3/uL 1.2-3.8 [facility] Lymphocytes/100 WBC Auto (Bl d)on 05-01-2024 Lymphocytes/100 WBC (Bld) 29.4 % 20.5-60.0 [facility] MCH Auto (RBC) [Entitic mass ]on 05-01-2024 MCH (RBC) [Entitic mass] 29.2 pg 26.7-34.0 [facility] MCHC Auto (RBC) [Mass/Vol]on 05-01-2024 MCHC (RBC) [Mass/Vol] 32.3 g/dL 29.9-35.[address] [facility] MCV Auto (RBC) [Entitic vol] on 05-01-2024 MCV (RBC) [Entitic vol] 90.4 fL 81.0-99.0 [facility] Monocytes Auto (Bld) [#/Vol] on 05-01-2024 Monocytes (Bld) [#/Vol] 0.9 10 3/uL High 0.3-0.8 [facility] Monocytes/100 WBC Auto (Bld) on 05-01-2024 Monocytes/100 WBC (Bld) 11.5 % 1.7-12.0 [facility] Neutrophils Auto (Bld) [#/Vo l]on 05-01-2024 Neutrophils (Bld) [#/Vol] 4.1 10 3/uL 1.4-6.5 [facility] Neutrophils/100 WBC Auto (Bl d)on 05-01-2024 Neutrophils/100 WBC (Bld) 56.0 % 43.0-75.0 [facility] No Panel Informationon 05-01 40.7 [facility] 87.0 mg/dL High 7.0-18.0 [facility] 9.2 mg/dL 8.5-10.1 [facility] 104 mmol/L 98-107 [facility] 23.2 mmol/L 21.0-32.0 [facility] 2.14 mg/dL High 0.55-1.02 [facility] 27 Low >=60 [facility] 220 mg/dL High 74-106 [facility] 5.3 mmol/L High 3.5-5.1 [facility] 134 mmol/L Low 136-145 [facility] Eosinophils # (Auto) 0.2 10 3/uL 0.0-0.[address] [facility] Immature Granulocyte # (Auto) 0.01 10 3/uL 0.00-0.03 [facility] 1624.0 pg/mL <=1800.0 [facility] 2.8 g/dL Low 3.4-5.0 [facility] 0.2 10 3/uL 0.0-0.7 [facility] 80 U/L 46-116 [facility] 16 U/L 14-59 [facility] 11 U/L Low 15-37 [facility] 0.01 10 3/uL 0.00-0.03 [facility] 0.1 % 0.0-0.5 [facility] 0.4 mg/dL 0.2-1.0 [facility] 7.2 g/dL 6.4-8.2 [facility] Platelet mean volume Auto (B ld) [Entitic vol]on 05-01-2024 Platelet mean volume (Bld) [Entitic vol] 11.6 fL 9.5-13.5 [facility] Platelets Auto (Bld) [#/Vol] on 05-01-2024 Platelets (Bld) [#/Vol] 151 10 3/uL 150-450 [facility] RBC Auto (Bld) [#/Vol]on RBC (Bld) [#/Vol] 4.15 10 6/uL Low 4.20-5.40 [facility] Serum or plasma albumin/glob ulin mass ratioon 05-01-2024 Albumin/Globulin [Mass ratio] 0.6 {ratio} [facility] Serum or plasma anion gap de terminationon 05-01-2024 Anion gap [Moles/Vol] 12.1 mmol/L [facility] Basophils Auto (Bld) [#/Vol] on 04-30-2024 Basophils (Bld) [#/Vol] 0.1 10 3/uL 0.0-0.1 [facility] Basophils/100 WBC Auto (Bld) on 04-30-2024 Basophils/100 WBC (Bld) 0.9 % 0.2-2.0 [facility] Eosinophils/100 WBC Auto (Bl d)on 04-30-2024 Eosinophils/100 WBC (Bld) 2.4 % 0.9-7.0 [facility] Erythrocyte distribution wid th Auto (RBC) [Ratio]on 04-30-2024 Erythrocyte distribution width (RBC) [Ratio] 13.5 % 11.0-15.0 [facility] Estimated glomerular filtrat ion rate (GFR) non- Americanon 04-30-2024 GFR/1.73 sq M.predicted among non-blacks MDRD (S/P/Bld) [Vol rate/Area] 15 mL/min/{1.73_m2} Low >=60 [facility] Fibrin D-dimer [Presence] in Platelet poor [...] Hematocrit (Bld) [Volume fraction] 38.6 % 36.0-48.0 [facility] Hemoglobin [Mass/volume] in Bloodon 04-30-2024 Hemoglobin (Bld) [Mass/Vol] 12.5 g/dL 12.0-16.0 [facility] Laboratory - Chemistry and C hemistry - challengeon 04-30-2024 Calcium [Mass/Vol] 9.0 mg/dL 8.5-10.1 [facility] Chloride [Moles/Vol] 100 mmol/L 98-107 [facility] CO2 [Moles/Vol] 24.4 mmol/L 21.0-32.0 [facility] Creatinine [Mass/Vol] 3.02 mg/dL High 0.55-1.[address] [facility] GFR/1.73 sq M.predicted MDRD (S/P/Bld) [Vol rate/Area] 18 mL/min/{1.73_m2} Low >=60 [facility] Glucose [Mass/Vol] 271 mg/dL High 74-106 [facility] Magnesium [Mass/Vol] 1.8 mg/dL 1.8-2.4 [facility] Natriuretic peptide B (Bld) [Mass/Vol] 1485.0 pg/mL <=1800.0 [facility] Potassium [Moles/Vol] 5.3 mmol/L High 3.5-5.[address] [facility] Sodium [Moles/Vol] 133 mmol/L Low 136-145 [facility] Urea nitrogen [Mass/Vol] 99.0 mg/dL High 7.0-18.0 [facility] Comment on above: RESULTS CALLED TO Yoel WADE)@BY Franchesca Huynh MLT at 0603 Urea nitrogen/Creatinine [Mass ratio] 32.8 mg/mg [facility] Laboratory - Hematology and Cell countson 04-30-2024 Immature granulocytes/100 WBC (Bld) 0.1 % 0.0-0.5 [facility] Leukocytes [#/volume] correc gali for nucleated erythrocytes in Blood by Automated counon 04-30-2024 WBC corrected for nucl RBC Auto (Bld) [#/Vol] 7.5 10 3/uL 4.0-11.0 [facility] Lymphocytes Auto (Bld) [#/Vo l]on 04-30-2024 Lymphocytes (Bld) [#/Vol] 2.1 10 3/uL 1.2-3.8 [facility] Lymphocytes/100 WBC Auto (Bl d)on 04-30-2024 Lymphocytes/100 WBC (Bld) 27.8 % 20.5-60.0 [facility] MCH Auto (RBC) [Entitic mass ]on 04-30-2024 MCH (RBC) [Entitic mass] 29.6 pg 26.7-34.0 [facility] MCHC Auto (RBC) [Mass/Vol]on 04-30-2024 MCHC (RBC) [Mass/Vol] 32.4 g/dL 29.9-35.[address] [facility] MCV Auto (RBC) [Entitic vol] on 04-30-2024 MCV (RBC) [Entitic vol] 91.5 fL 81.0-99.0 [facility] Monocytes Auto (Bld) [#/Vol] on 04-30-2024 Monocytes (Bld) [#/Vol] 0.8 10 3/uL 0.3-0.8 [facility] Monocytes/100 WBC Auto (Bld) on 04-30-2024 Monocytes/100 WBC (Bld) 10.0 % 1.7-12.0 [facility] Neutrophils Auto (Bld) [#/Vo l]on 04-30-2024 Neutrophils (Bld) [#/Vol] 4.4 10 3/uL 1.4-6.5 [facility] Neutrophils/100 WBC Auto (Bl d)on 04-30-2024 Neutrophils/100 WBC (Bld) 58.8 % 43.0-75.0 [facility] No Panel Informationon 04-30 Troponin I High Sensitivity 12.6 pg/mL 4.0-51.3 [facility] Comment on above: CUT-OFF POINTS HAVE [...] DIAGNOSTIC AND CLINICAL INFORMATION. 1.8 mg/dL 1.8-2.4 [facility] 1485.0 pg/mL <=1800.0 [facility] 12.6 pg/mL 4.0-51.3 [facility] 32.8 [facility] 99.0 mg/dL High 7.0-18.0 [facility] 9.0 mg/dL 8.5-10.1 [facility] 100 mmol/L 98-107 [facility] 24.4 mmol/L 21.0-32.0 [facility] 3.02 mg/dL High 0.55-1.02 [facility] 18 Low >=60 [facility] 271 mg/dL High 74-106 [facility] 5.3 mmol/L High 3.5-5.1 [facility] 133 mmol/L Low 136-145 [facility] Eosinophils # (Auto) 0.2 10 3/uL 0.0-0.[address] [facility] Immature Granulocyte # (Auto) 0.01 10 3/uL 0.00-0.03 [facility] 0.2 10 3/uL 0.0-0.7 [facility] 0.01 10 3/uL 0.00-0.03 [facility] 0.1 % 0.0-0.5 [facility] Platelet mean volume Auto (B ld) [Entitic vol]on 04-30-2024 Platelet mean volume (Bld) [Entitic vol] 12.2 fL 9.5-13.5 [facility] Platelets Auto (Bld) [#/Vol] on 04-30-2024 Platelets (Bld) [#/Vol] 221 10 3/uL 150-450 [facility] RBC Auto (Bld) [#/Vol]on RBC (Bld) [#/Vol] 4.22 10 6/uL 4.20-5.40 [facility] Serum or plasma anion gap de terminationon 04-30-2024 Anion gap [Moles/Vol] 13.9 mmol/L [facility] Basophils Auto (Bld) [#/Vol] on 03-28-2024 Basophils (Bld) [#/Vol] 0.1 10 3/uL 0.0-0.1 [facility] Basophils/100 WBC Auto (Bld) on 03-28-2024 Basophils/100 WBC (Bld) 0.9 % 0.2-2.0 [facility] Eosinophils/100 WBC Auto (Bl d)on 03-28-2024 Eosinophils/100 WBC (Bld) 1.7 % 0.9-7.0 [facility] Erythrocyte distribution wid th Auto (RBC) [Ratio]on 03-28-2024 Erythrocyte distribution width (RBC) [Ratio] 14.2 % 11.0-15.0 [facility] Estimated glomerular filtrat ion rate (GFR) non- Americanon 03-28-2024 GFR/1.73 sq M.predicted among non-blacks MDRD (S/P/Bld) [Vol rate/Area] 39 mL/min/{1.73_m2} Low >=60 [facility] Globulin Calc (S) [Mass/Vol] on 03-28-2024 Globulin (S) [Mass/Vol] 4.8 g/dL [facility] Hematocrit Auto (Bld) [Volum e fraction]on 03-28-2024 Hematocrit (Bld) [Volume fraction] 40.0 % 36.0-48.0 [facility] Hemoglobin [Mass/volume] in Bloodon 03-28-2024 Hemoglobin (Bld) [Mass/Vol] 12.6 g/dL 12.0-16.0 [facility] Laboratory - Chemistry and C hemistry - challengeon 03-28-2024 Albumin [Mass/Vol] 2.5 g/dL Low 3.4-5.0 [facility] ALP [Catalytic activity/Vol] 93 U/L 46-116 [facility] ALT [Catalytic activity/Vol] 9 U/L Low 14-59 [facility] AST [Catalytic activity/Vol] 10 U/L Low 15-37 [facility] Bilirubin [Mass/Vol] 0.9 mg/dL 0.2-1.0 [facility] Calcium [Mass/Vol] 8.5 mg/dL 8.5-10.1 [facility] Chloride [Moles/Vol] 96 mmol/L Low 98-107 [facility] CO2 [Moles/Vol] 27.1 mmol/L 21.0-32.0 [facility] Creatinine [Mass/Vol] 1.33 mg/dL High 0.55-1.[address] [facility] GFR/1.73 sq M.predicted MDRD (S/P/Bld) [Vol rate/Area] 47 mL/min/{1.73_m2} Low >=60 [facility] Glucose [Mass/Vol] 261 mg/dL High 74-106 [facility] Magnesium [Mass/Vol] 1.8 mg/dL 1.8-2.4 [facility] Natriuretic peptide B (Bld) [Mass/Vol] 3338.0 pg/mL High <=1800.0 [facility] Comment on above: RESULTS CALLED TO Claritza Sellers (RN)@BY Franchesca Huynh MLT at 0554 Potassium [Moles/Vol] 3.8 mmol/L 3.5-5.[address] [facility] Protein [Mass/Vol] 7.3 g/dL 6.4-8.2 [facility] Sodium [Moles/Vol] 133 mmol/L Low 136-145 [facility] Urea nitrogen [Mass/Vol] 36.0 mg/dL High 7.0-18.0 [facility] Urea nitrogen/Creatinine [Mass ratio] 27.1 mg/mg [facility] Laboratory - Hematology and Cell countson 03-28-2024 Immature granulocytes/100 WBC (Bld) 0.4 % 0.0-0.5 [facility] Leukocytes [#/volume] correc gali for nucleated erythrocytes in Blood by Automated counon 03-28-2024 WBC corrected for nucl RBC Auto (Bld) [#/Vol] 8.4 10 3/uL 4.0-11.0 [facility] Lymphocytes Auto (Bld) [#/Vo l]on 03-28-2024 Lymphocytes (Bld) [#/Vol] 1.8 10 3/uL 1.2-3.8 [facility] Lymphocytes/100 WBC Auto (Bl d)on 03-28-2024 Lymphocytes/100 WBC (Bld) 21.4 % 20.5-60.0 [facility] MCH Auto (RBC) [Entitic mass ]on 03-28-2024 MCH (RBC) [Entitic mass] 29.0 pg 26.7-34.0 [facility] MCHC Auto (RBC) [Mass/Vol]on 03-28-2024 MCHC (RBC) [Mass/Vol] 31.5 g/dL 29.9-35.[address] [facility] MCV Auto (RBC) [Entitic vol] on 03-28-2024 MCV (RBC) [Entitic vol] 92.0 fL 81.0-99.0 [facility] Monocytes Auto (Bld) [#/Vol] on 03-28-2024 Monocytes (Bld) [#/Vol] 0.8 10 3/uL 0.3-0.8 [facility] Monocytes/100 WBC Auto (Bld) on 03-28-2024 Monocytes/100 WBC (Bld) 9.7 % 1.7-12.0 [facility] Neutrophils Auto (Bld) [#/Vo l]on 03-28-2024 Neutrophils (Bld) [#/Vol] 5.6 10 3/uL 1.4-6.5 [facility] Neutrophils/100 WBC Auto (Bl d)on 03-28-2024 Neutrophils/100 WBC (Bld) 65.9 % 43.0-75.0 [facility] No Panel Informationon 03-28 Eosinophils # (Auto) 0.1 10 3/uL 0.0-0.[address] [facility] Immature Granulocyte # (Auto) 0.03 10 3/uL 0.00-0.03 [facility] 3338.0 pg/mL High <=1800.0 [facility] 1.8 mg/dL 1.8-2.4 [facility] 2.5 g/dL Low 3.4-5.0 [facility] 0.1 10 3/uL 0.0-0.7 [facility] 93 U/L 46-116 [facility] 9 U/L Low 14-59 [facility] 10 U/L Low 15-37 [facility] 27.1 [facility] 0.03 10 3/uL 0.00-0.03 [facility] 36.0 mg/dL High 7.0-18.0 [facility] 0.4 % 0.0-0.5 [facility] 8.5 mg/dL 8.5-10.1 [facility] 96 mmol/L Low 98-107 [facility] 27.1 mmol/L 21.0-32.0 [facility] 1.33 mg/dL High 0.55-1.02 [facility] 47 Low >=60 [facility] 261 mg/dL High 74-106 [facility] 3.8 mmol/L 3.5-5.1 [facility] 133 mmol/L Low 136-145 [facility] 0.9 mg/dL 0.2-1.0 [facility] 7.3 g/dL 6.4-8.2 [facility] Platelet mean volume Auto (B ld) [Entitic vol]on 03-28-2024 Platelet mean volume (Bld) [Entitic vol] 10.5 fL 9.5-13.5 [facility] Platelets Auto (Bld) [#/Vol] on 03-28-2024 Platelets (Bld) [#/Vol] 197 10 3/uL 150-450 [facility] RBC Auto (Bld) [#/Vol]on RBC (Bld) [#/Vol] 4.35 10 6/uL 4.20-5.40 [facility] Serum or plasma albumin/glob ulin mass ratioon 03-28-2024 Albumin/Globulin [Mass ratio] 0.5 {ratio} [facility] Serum or plasma anion gap de terminationon 03-28-2024 Anion gap [Moles/Vol] 13.7 [facility] Basophils Auto (Bld) [#/Vol] on 03-27-2024 Basophils (Bld) [#/Vol] 0.1 10 3/uL 0.0-0.1 [facility] Basophils/100 WBC Auto (Bld) on 03-27-2024 Basophils/100 WBC (Bld) 0.8 % 0.2-2.0 [facility] Eosinophils/100 WBC Auto (Bl d)on 03-27-2024 Eosinophils/100 WBC (Bld) 1.1 % 0.9-7.0 [facility] Erythrocyte distribution wid th Auto (RBC) [Ratio]on 03-27-2024 Erythrocyte distribution width (RBC) [Ratio] 14.2 % 11.0-15.0 [facility] Estimated glomerular filtrat ion rate (GFR) non- Americanon 03-27-2024 GFR/1.73 sq M.predicted among non-blacks MDRD (S/P/Bld) [Vol rate/Area] 44 mL/min/{1.73_m2} Low >=60 [facility] Globulin Calc (S) [Mass/Vol] on 03-27-2024 Globulin (S) [Mass/Vol] 4.6 g/dL [facility] Glucose mean value [Mass/vol ume] in Blood Estimated from glycated hemoglobinon 03-27-2024 Average glucose Estimated from glycated hemoglobin (Bld) [Mass/Vol] 275 mg/dL [facility] Hematocrit Auto (Bld) [Volum e fraction]on 03-27-2024 Hematocrit (Bld) [Volume fraction] 37.4 % 36.0-48.0 [facility] Hemoglobin [Mass/volume] in Bloodon 03-27-2024 Hemoglobin (Bld) [Mass/Vol] 12.1 g/dL 12.0-16.0 [facility] Laboratory - Chemistry and C hemistry - challengeon 03-27-2024 Albumin [Mass/Vol] 2.6 g/dL Low 3.4-5.0 [facility] ALP [Catalytic activity/Vol] 89 U/L 46-116 [facility] ALT [Catalytic activity/Vol] 12 U/L Low 14-59 [facility] AST [Catalytic activity/Vol] 9 U/L Low 15-37 [facility] Bilirubin [Mass/Vol] 0.9 mg/dL 0.2-1.0 [facility] Calcium [Mass/Vol] 9.1 mg/dL 8.5-10.1 [facility] Chloride [Moles/Vol] 99 mmol/L 98-107 [facility] CO2 [Moles/Vol] 28.8 mmol/L 21.0-32.0 [facility] Creatinine [Mass/Vol] 1.19 mg/dL High 0.55-1.[address] [facility] GFR/1.73 sq M.predicted MDRD (S/P/Bld) [Vol rate/Area] 53 mL/min/{1.73_m2} Low >=60 [facility] Glucose [Mass/Vol] 273 mg/dL High 74-106 [facility] Magnesium [Mass/Vol] 1.7 mg/dL Low 1.8-2.4 [facility] Natriuretic peptide B (Bld) [Mass/Vol] 4572.0 pg/mL High <=1800.0 [facility] Comment on above: RESULTS CALLED TO SA RA MIGUEL RN @BY Alla Kevin [phone] Potassium [Moles/Vol] 3.6 mmol/L 3.5-5.[address] [facility] Protein [Mass/Vol] 7.2 g/dL 6.4-8.2 [facility] Sodium [Moles/Vol] 135 mmol/L Low 136-145 [facility] Urea nitrogen [Mass/Vol] 34.0 mg/dL High 7.0-18.0 [facility] Urea nitrogen/Creatinine [Mass ratio] 28.6 mg/mg [facility] Laboratory - Hematology and Cell countson 03-27-2024 HbA1c (Bld) [Mass fraction] 11.2 % High 4.5-6.2 [facility] Comment on above: ADA RECOMMENDED LIMI T 4.0 - 6.0ADA THERAPEUTIC TARGET < 7.0ACTION SUGGESTED> 7.0 Immature granulocytes/100 WBC (Bld) 0.3 % 0.0-0.5 [facility] Leukocytes [#/volume] correc gali for nucleated erythrocytes in Blood by Automated counon 03-27-2024 WBC corrected for nucl RBC Auto (Bld) [#/Vol] 9.7 10 3/uL 4.0-11.0 [facility] Lymphocytes Auto (Bld) [#/Vo l]on 03-27-2024 Lymphocytes (Bld) [#/Vol] 1.3 10 3/uL 1.2-3.8 [facility] Lymphocytes/100 WBC Auto (Bl d)on 03-27-2024 Lymphocytes/100 WBC (Bld) 13.3 % Low 20.5-60.0 [facility] MCH Auto (RBC) [Entitic mass ]on 03-27-2024 MCH (RBC) [Entitic mass] 29.2 pg 26.7-34.0 [facility] MCHC Auto (RBC) [Mass/Vol]on 03-27-2024 MCHC (RBC) [Mass/Vol] 32.4 g/dL 29.9-35.[address] [facility] MCV Auto (RBC) [Entitic vol] on 03-27-2024 MCV (RBC) [Entitic vol] 90.3 fL 81.0-99.0 [facility] Monocytes Auto (Bld) [#/Vol] on 03-27-2024 Monocytes (Bld) [#/Vol] 0.8 10 3/uL 0.3-0.8 [facility] Monocytes/100 WBC Auto (Bld) on 03-27-2024 Monocytes/100 WBC (Bld) 8.4 % 1.7-12.0 [facility] Neutrophils Auto (Bld) [#/Vo l]on 03-27-2024 Neutrophils (Bld) [#/Vol] 7.4 10 3/uL High 1.4-6.5 [facility] Neutrophils/100 WBC Auto (Bl d)on 03-27-2024 Neutrophils/100 WBC (Bld) 76.1 % High 43.0-75.0 [facility] No Panel Informationon 03-27 Eosinophils # (Auto) 0.1 10 3/uL 0.0-0.[address] [facility] Immature Granulocyte # (Auto) 0.03 10 3/uL 0.00-0.03 [facility] 4572.0 pg/mL High <=1800.0 [facility] 1.7 mg/dL Low 1.8-2.4 [facility] 11.2 % High 4.5-6.2 [facility] 2.6 g/dL Low 3.4-5.0 [facility] 0.1 10 3/uL 0.0-0.7 [facility] 89 U/L 46-116 [facility] 12 U/L Low 14-59 [facility] 9 U/L Low 15-37 [facility] 28.6 [facility] 0.03 10 3/uL 0.00-0.03 [facility] 34.0 mg/dL High 7.0-18.0 [facility] 0.3 % 0.0-0.5 [facility] 9.1 mg/dL 8.5-10.1 [facility] 99 mmol/L 98-107 [facility] 28.8 mmol/L 21.0-32.0 [facility] 1.19 mg/dL High 0.55-1.02 [facility] 53 Low >=60 [facility] 273 mg/dL High 74-106 [facility] 3.6 mmol/L 3.5-5.1 [facility] 135 mmol/L Low 136-145 [facility] 0.9 mg/dL 0.2-1.0 [facility] 7.2 g/dL 6.4-8.2 [facility] Platelet mean volume Auto (B ld) [Entitic vol]on 03-27-2024 Platelet mean volume (Bld) [Entitic vol] 10.6 fL 9.5-13.5 [facility] Platelets Auto (Bld) [#/Vol] on 03-27-2024 Platelets (Bld) [#/Vol] 204 10 3/uL 150-450 [facility] RBC Auto (Bld) [#/Vol]on RBC (Bld) [#/Vol] 4.14 10 6/uL Low 4.20-5.40 [facility] Serum or plasma albumin/glob ulin mass ratioon 03-27-2024 Albumin/Globulin [Mass ratio] 0.6 {ratio} [facility] Serum or plasma anion gap de terminationon 03-27-2024 Anion gap [Moles/Vol] 10.8 mmol/L [facility] Basophils Auto (Bld) [#/Vol] on 03-26-2024 Basophils (Bld) [#/Vol] 0.1 10 3/uL 0.0-0.1 [facility] Basophils/100 WBC Auto (Bld) on 03-26-2024 Basophils/100 WBC (Bld) 0.8 % 0.2-2.0 [facility] Eosinophils/100 WBC Auto (Bl d)on 03-26-2024 Eosinophils/100 WBC (Bld) 1.2 % 0.9-7.0 [facility] Erythrocyte distribution wid th Auto (RBC) [Ratio]on 03-26-2024 Erythrocyte distribution width (RBC) [Ratio] 14.5 % 11.0-15.0 [facility] Estimated glomerular filtrat ion rate (GFR) non- Americanon 03-26-2024 GFR/1.73 sq M.predicted among non-blacks MDRD (S/P/Bld) [Vol rate/Area] 46 mL/min/{1.73_m2} Low >=60 [facility] Glucose mean value [Mass/vol ume] in Blood Estimated from glycated hemoglobinon 03-26-2024 Average glucose Estimated from glycated hemoglobin (Bld) [Mass/Vol] 275 mg/dL [facility] Hematocrit Auto (Bld) [Volum e fraction]on 03-26-2024 Hematocrit (Bld) [Volume fraction] 40.1 % 36.0-48.0 [facility] Hemoglobin [Mass/volume] in Bloodon 03-26-2024 Hemoglobin (Bld) [Mass/Vol] 12.7 g/dL 12.0-16.0 [facility] Laboratory - Chemistry and C hemistry - challengeon 03-26-2024 Calcium [Mass/Vol] 9.1 mg/dL 8.5-10.1 [facility] Chloride [Moles/Vol] 102 mmol/L 98-107 [facility] CO2 [Moles/Vol] 28.5 mmol/L 21.0-32.0 [facility] Creatinine [Mass/Vol] 1.14 mg/dL High 0.55-1.[address] [facility] Free T4 [Mass/Vol] 1.29 ng/dL 0.76-1.46 [facility] GFR/1.73 sq M.predicted MDRD (S/P/Bld) [Vol rate/Area] 56 mL/min/{1.73_m2} Low >=60 [facility] Glucose [Mass/Vol] 246 mg/dL High 74-106 [facility] Natriuretic peptide B (Bld) [Mass/Vol] 2890.0 pg/mL High <=1800.0 [facility] Comment on above: RESULTS CALLED TO YOEL ROBIN RN @BY Alla Kunz 0556 Potassium [Moles/Vol] 4.3 mmol/L 3.5-5.[address] [facility] Sodium [Moles/Vol] 136 mmol/L 136-145 [facility] TSH Qn 6.001 m[IU]/L High 0.358-3.740 [facility] Urea nitrogen [Mass/Vol] 35.0 mg/dL High 7.0-18.0 [facility] Urea nitrogen/Creatinine [Mass ratio] 30.7 mg/mg [facility] Laboratory - Hematology and Cell countson 03-26-2024 HbA1c (Bld) [Mass fraction] 11.2 % High 4.5-6.2 [facility] Comment on above: ADA RECOMMENDED LIMI T 4.0 - 6.0ADA THERAPEUTIC TARGET < 7.0ACTION SUGGESTED> 7.0 Immature granulocytes/100 WBC (Bld) 0.2 % 0.0-0.5 [facility] Leukocytes [#/volume] correc gali for nucleated erythrocytes in Blood by Automated counon 03-26-2024 WBC corrected for nucl RBC Auto (Bld) [#/Vol] 8.3 10 3/uL 4.0-11.0 [facility] Lymphocytes Auto (Bld) [#/Vo l]on 03-26-2024 Lymphocytes (Bld) [#/Vol] 1.4 10 3/uL 1.2-3.8 [facility] Lymphocytes/100 WBC Auto (Bl d)on 03-26-2024 Lymphocytes/100 WBC (Bld) 16.5 % Low 20.5-60.0 [facility] MCH Auto (RBC) [Entitic mass ]on 03-26-2024 MCH (RBC) [Entitic mass] 29.1 pg 26.7-34.0 [facility] MCHC Auto (RBC) [Mass/Vol]on 03-26-2024 MCHC (RBC) [Mass/Vol] 31.7 g/dL 29.9-35.[address] [facility] MCV Auto (RBC) [Entitic vol] on 03-26-2024 MCV (RBC) [Entitic vol] 92.0 fL 81.0-99.0 [facility] Monocytes Auto (Bld) [#/Vol] on 03-26-2024 Monocytes (Bld) [#/Vol] 0.7 10 3/uL 0.3-0.8 [facility] Monocytes/100 WBC Auto (Bld) on 03-26-2024 Monocytes/100 WBC (Bld) 7.9 % 1.7-12.0 [facility] Neutrophils Auto (Bld) [#/Vo l]on 03-26-2024 Neutrophils (Bld) [#/Vol] 6.1 10 3/uL 1.4-6.5 [facility] Neutrophils/100 WBC Auto (Bl d)on 03-26-2024 Neutrophils/100 WBC (Bld) 73.4 % 43.0-75.0 [facility] No Panel Informationon 03-26 Eosinophils # (Auto) 0.1 10 3/uL 0.0-0.[address] [facility] Immature Granulocyte # (Auto) 0.02 10 3/uL 0.00-0.03 [facility] Troponin I High Sensitivity 12.4 pg/mL 4.0-51.3 [facility] Comment on above: CUT-OFF POINTS HAVE [...] DIAGNOSTIC AND CLINICAL INFORMATION. 1.29 ng/dL 0.76-1.46 [facility] 6.001 u[iU]/mL High 0.358-3.740 [facility] 2890.0 pg/mL High <=1800.0 [facility] 12.4 pg/mL 4.0-51.3 [facility] 11.2 % High 4.5-6.2 [facility] 30.7 [facility] 35.0 mg/dL High 7.0-18.0 [facility] 0.1 10 3/uL 0.0-0.7 [facility] 9.1 mg/dL 8.5-10.1 [facility] 102 mmol/L 98-107 [facility] 28.5 mmol/L 21.0-32.0 [facility] 1.14 mg/dL High 0.55-1.02 [facility] 0.02 10 3/uL 0.00-0.03 [facility] 56 Low >=60 [facility] 0.2 % 0.0-0.5 [facility] 246 mg/dL High 74-106 [facility] 4.3 mmol/L 3.5-5.1 [facility] 136 mmol/L 136-145 [facility] Platelet mean volume Auto (B ld) [Entitic vol]on 03-26-2024 Platelet mean volume (Bld) [Entitic vol] 10.8 fL 9.5-13.5 [facility] Platelets Auto (Bld) [#/Vol] on 03-26-2024 Platelets (Bld) [#/Vol] 225 10 3/uL 150-450 [facility] RBC Auto (Bld) [#/Vol]on RBC (Bld) [#/Vol] 4.36 10 6/uL 4.20-5.40 [facility] Serum or plasma anion gap de terminationon 03-26-2024 Anion gap [Moles/Vol] 9.8 mmol/L [facility] GI PANEL (PCR)on 03-06-2023 Adenovirus F 40/41 Not detected Normal NOT DETECTED The [facility] Comment on above: Performed By: #### P OCGLUC #### [facility] [address] [place] [address] Dr. Kasia Nath Astrovirus Not detected Normal NOT DETECTED The [facility] Comment on above: Performed By: #### P OCGLUC #### [facility] [address] [place] [address] Dr. Kasia Nath C. Diff toxin A/B Detected Critically abnormal NOT DETECTED The [facility] Comment on above: Performed By: #### P OCGLUC #### [facility] [address] [place] [address] Dr. Kasia Nath Campylobacter Detected Critically abnormal NOT DETECTED The [facility] Comment on above: Performed By: #### P OCGLUC #### [facility] [address] [address] [address] Kasia Nath Cryptosporidium Not detected Normal NOT DETECTED The [facility] Comment on above: Performed By: #### P OCGLUC #### [facility] [address] [address] [address] Kasia Nath Cyclos. Cayetanensis Not detected Normal NOT DETECTED The [facility] Comment on above: Performed By: #### P OCGLUC #### [facility] [address] [place] [address] Dr. Kasia Nath E. Coli O157 Not Applicable Normal Not Applicable The [facility] Comment on above: Performed By: #### P OCGLUC #### [facility] [address] [place] [address] Dr. Kasia Nath E. histolytica Not detected Normal NOT DETECTED The [facility] Comment on above: Performed By: #### P OCGLUC #### [facility] [address] [address] [address] Kasia Nath EAEC Not detected Normal NOT DETECTED The [facility] Comment on above: Performed By: #### P OCGLUC #### [facility] [address] [address] [address] Kasia Nath EIEC Not detected Normal NOT DETECTED The [facility] Comment on above: Performed By: #### P OCGLUC #### [facility] [address] [address] [address] Kasia Nath EPEC Not detected Normal NOT DETECTED The [facility] Comment on above: Performed By: #### P OCGLUC #### [facility] [address] [place] [address] Dr. Kasia Nath ETEC Not detected Normal NOT DETECTED The [facility] Comment on above: Performed By: #### P OCGLUC #### [facility] [address] [place] [address] Dr. Kasia Nath G. Lamblia Not detected Normal NOT DETECTED [facility] Comment on above: Performed By: #### P OCGLUC #### [facility] [address] [place] [address] Dr. Kasia KHAN CONTROLS PASSED Normal [facility] Comment on above: Performed By: #### P OCGLUC #### [facility] [address] [place] [address] Dr. Kasia THOMPSON JUNO HEADER GI PANEL BACTERIA Normal [facility] Comment on above: Performed By: #### P OCGLUC #### [facility] [address] [address] [address] Kasia GE ECOLI GI PANEL DIARRHEAGEN IC E.COLI / SHIGELLA Normal [facility] Comment on above: Performed By: #### P OCGLUC #### [facility] [address] [place] [address] Dr. Kasia GE INFO SEE BELOW Normal [facility] Comment on above: Result Comment: EAEC - Enteroaggregative E. Coli EPEC- Enteropathogenic E. Coli ETEC- Enterotoxigenic E. Coli lt/st STEC- Shigella-like toxin-producing E. Coli stx1/stx2 EIEC- Shigella/Enteroinvasive E. Coli Performed By: #### P OCGLUC #### [facility] [address] [address] [address] Kasia GE PARASITES GI PANEL PARASITES Normal [facility] Comment on above: Performed By: #### P OCGLUC #### [facility] [address] [address] [address] Kasia GE VIRUS GI PANEL VIRUSES Normal The [facility] Comment on above: Performed By: #### P OCGLUC #### [facility] [address] [place] [address] Dr. Kasia Nath Norovirus GI/GII Not detected Normal NOT DETECTED The [facility] Comment on above: Performed By: #### P OCGLUC #### [facility] [address] [address] [address] Kasia Nath P. Shigelloides Not detected Normal NOT DETECTED [facility] Comment on above: Performed By: #### P OCGLUC #### [facility] [address] [place] [address] Dr. Kasia Nath Rotavirus A Not detected Normal NOT DETECTED [facility] Comment on above: Performed By: #### P OCGLUC #### [facility] [address] [place] [address] Dr. Kasia Nath Salmonella Not detected Normal NOT DETECTED [facility] Comment on above: Performed By: #### P OCGLUC #### [facility] [address] [place] [address] Dr. Kasia Nath Sapovirus Not detected Normal NOT DETECTED [facility] Comment on above: Performed By: #### P OCGLUC #### [facility] [address] [place] [address] Dr. Kasia Nath STEC Not detected Normal NOT DETECTED [facility] Comment on above: Performed By: #### P OCGLUC #### [facility] [address] [place] [address] Dr. Kasia Nath Vibrio Not detected Normal NOT DETECTED [facility] Comment on above: Performed By: #### P OCGLUC #### [facility] [address] [place] [address] Dr. Kasia Nath Vibrio Cholera Not detected Normal NOT DETECTED [facility] Comment on above: Performed By: #### P OCGLUC #### [facility] [address] [place] [address] Dr. Kasia Nath Y. Enterocolitica Not detected Normal NOT DETECTED [facility] Comment on above: Performed By: #### P OCGLUC #### [facility] [address] [place] [address] Dr. Kasia Nath CBC AUTO DIFFon 02-14-2023 BASO # 0.0 103/ul Normal 0.0-0.1 [facility] Comment on above: Performed By: #### P OCGLUC #### [facility] [address] [place] [address] Dr. Kasia Nath Basophils/100 WBC (Bld) 0.5 % Normal 0.2-2.0 [facility] Comment on above: Performed By: #### P OCGLUC #### [facility] [address] [place] [address] Dr. Kasia Nath EO # 0.2 103/ul Normal 0.0-0.7 [facility] Comment on above: Performed By: #### P OCGLUC #### [facility] [address] [place] [address] Dr. Kasia Nath Eosinophils/100 WBC (Bld) 2.7 % Normal 0.9-7.0 [facility] Comment on above: Performed By: #### P OCGLUC #### [facility] [address] [place] [address] Dr. Kasia Nath Erythrocyte distribution width (RBC) [Ratio] 13.0 % Normal 11.0-15.0 [facility] Comment on above: Performed By: #### P OCGLUC #### [facility] [address] [place] [address] Dr. Kasia Nath Hematocrit (Bld) [Volume fraction] 35.9 % Critically low 36.0-48.0 [facility] Comment on above: Performed By: #### P OCGLUC #### [facility] [address] [place] [address] Dr. Kasia Nath Hemoglobin (Bld) [Mass/Vol] 12.0 g/dL Normal 12.0-16.0 [facility] Comment on above: Performed By: #### P OCGLUC #### [facility] [address] [address] [address] Kasia Nath IG # 0.02 10e3/ul Normal 0.00-0.03 [facility] Comment on above: Performed By: #### P OCGLUC #### [facility] [address] [place] [address] Dr. Kasia Nath IG % 0.3 % Normal 0.0-0.5 [facility] Comment on above: Performed By: #### P OCGLUC #### [facility] [address] [place] [address] Dr. Kasia Nath LYMPH # 1.8 103/ul Normal 1.2-3.8 [facility] Comment on above: Performed By: #### P OCGLUC #### [facility] [address] [place] [address] Dr. Kasia Nath Lymphocytes/100 WBC (Bld) 22.8 % Normal 20.5-60.0 [facility] Comment on above: Performed By: #### P OCGLUC #### [facility] [address] [place] [address] Dr. Kasia Nath MANUAL DIFF REQ NO Normal [facility] Comment on above: Performed By: #### P OCGLUC #### [facility] [address] [address] [address] Kasia Nath MCH (RBC) [Entitic mass] 29.4 pg Normal 26.7-34.0 [facility] Comment on above: Performed By: #### P OCGLUC #### [facility] [address] [place] [address] Dr. Kasia Nath MCHC (RBC) [Mass/Vol] 33.4 g/dL Normal 29.9-35.2 [facility] Comment on above: Performed By: #### P OCGLUC #### [facility] [address] [place] [address] Dr. Kasia Nath MCV (RBC) [Entitic vol] 88.0 fL Normal 81.0-99.0 [facility] Comment on above: Performed By: #### P OCGLUC #### [facility] [address] [place] [address] Dr. Kasia Nath MONO # 0.7 103/ul Normal 0.3-0.8 [facility] Comment on above: Performed By: #### P OCGLUC #### [facility] [address] [place] [address] Dr. Kasia Nath Monocytes/100 WBC (Bld) 9.3 % Normal 1.7-12.0 [facility] Comment on above: Performed By: #### P OCGLUC #### [facility] [address] [place] [address] Dr. Kasia Nath NEUT # 5.1 103/ul Normal 1.4-6.5 [facility] Comment on above: Performed By: #### P OCGLUC #### [facility] [address] [place] [address] Dr. Kasia Nath Neutrophils/100 WBC (Bld) 64.4 % Normal 43.0-75.0 [facility] Comment on above: Performed By: #### P OCGLUC #### [facility] [address] [place] [address] Dr. Kasia Nath Platelet mean volume (Bld) [Entitic vol] 11.7 fL Normal 9.5-13.5 [facility] Comment on above: Performed By: #### P OCGLUC #### [facility] [address] [place] [address] Dr. Kasia Nath PLT 175 103/ul Normal 150-450 [facility] Comment on above: Performed By: #### P OCGLUC #### [facility] [address] [place] [address] Dr. Kasia Nath RBC 4.08 106/ul Critically low 4.20-5.40 [facility] Comment on above: Performed By: #### P OCGLUC #### [facility] [address] [address] [address] Kasia Nath WBC 7.9 103/ul Normal 4.0-11.0 [facility] Comment on above: Performed By: #### P OCGLUC #### [facility] [address] [address] [address] Kasia Nath LIPASEon 02-14-2023 Lipase [Catalytic activity/Vol] 51.0 U/L Critically low 73.0-393.0 [facility] Comment on above: Performed By: #### L IPA, CMP ####[facility] [address] [address]DrDoreen Nath PROF 14(COMP METB)on 023 Albumin [Mass/Vol] 2.8 g/dL Critically low 3.4-5.0 [facility] Comment on above: Performed By: #### L IPA, CMP ####[facility] [address] [address]DrDoreen Nath Albumin/Globulin [Mass ratio] 0.7 {ratio} Normal [facility] Comment on above: Performed By: #### L IPA, CMP ####[facility] [address] [address]Dr. Kasia Nath ALP [Catalytic activity/Vol] 90 U/L Normal 46-116 [facility] Comment on above: Performed By: #### L IPA, CMP ####[facility] [address] [address]Dr. Kasia Nath ALT [Catalytic activity/Vol] 15 U/L Normal 14-59 [facility] Comment on above: Performed By: #### L IPA, CMP ####[facility] [address] [address]Dr. Kasia Nath Anion gap [Moles/Vol] 15.6 mmol/L Normal [facility] Comment on above: Performed By: #### L IPA, CMP ####[facility] [address] [place], [place] [address]Dr. Kasia Nath AST [Catalytic activity/Vol] 9 U/L Critically low 15-37 [facility] Comment on above: Performed By: #### L IPA, CMP ####[facility] [address] [address]Dr. Kasia Nath Bilirubin [Mass/Vol] 0.4 mg/dL Normal 0.2-1.0 [facility] Comment on above: Performed By: #### L IPA, CMP ####[facility] [address] [place], [place] [address]Dr. Kasia Nath Calcium [Mass/Vol] 9.1 mg/dL Normal 8.5-10.1 [facility] Comment on above: Performed By: #### L IPA, CMP ####[facility] [address] [place], [place] [address]Dr. Kasia Nath Chloride [Moles/Vol] 104 mmol/L Normal 98-107 [facility] Comment on above: Performed By: #### L IPA, CMP ####[facility] [address] [place], [place] [address]Dr. Kasia Nath CO2 [Moles/Vol] 17.0 mmol/L Critically low 21.0-32.0 [facility] Comment on above: Performed By: #### L IPA, CMP ####[facility] [address] [place], [place] [address]Dr. Kasia Nath Creatinine [Mass/Vol] 1.78 mg/dL Critically high 0.55-1.02 [facility] Comment on above: Performed By: #### L IPA, CMP ####[facility] [address] [place], [place] [address]Dr. Kasia Nath EGFR-AF CITIZEN OF [place] 34 mL/min/1.73m2 Critically low >=60 [facility] Comment on above: Performed By: #### L IPA, CMP ####[facility] [address] [place], [place] [address]Dr. Kasia Nath EGFR-NON AF CITIZEN OF [place] 28 mL/min/1.73m2 Critically low >=60 [facility] Comment on above: Performed By: #### L IPA, CMP ####[facility] [address] [address]Dr. Kasia Nath Globulin (S) [Mass/Vol] 4.3 g/dL Normal [facility] Comment on above: Performed By: #### L IPA, CMP ####[facility] [address] [address]Dr. Kasia Nath Glucose [Mass/Vol] 248 mg/dL Critically high 74-106 [facility] Comment on above: Performed By: #### L IPA, CMP ####[facility] [address] [place], [place] [address]Dr. Kasia Nath Potassium [Moles/Vol] 4.6 mmol/L Normal 3.5-5.1 [facility] Comment on above: Performed By: #### L IPA, CMP ####[facility] [address] [place], [place] [address]Dr. Kasia Nath Protein [Mass/Vol] 7.1 g/dL Normal 6.4-8.2 [facility] Comment on above: Performed By: #### L IPA, CMP ####[facility] [address] [place], [place] [address]Dr. Kasia Nath Sodium [Moles/Vol] 132 mmol/L Critically low 136-145 [facility] Comment on above: Performed By: #### L IPA, CMP ####[facility] [address] [place], [place] [address]Dr. Kasia Nath Urea nitrogen [Mass/Vol] 78.0 mg/dL Critically high 7.0-18.0 [facility] Comment on above: Performed By: #### L IPA, CMP ####[facility] [address] [place], [place] [address]Dr. Kasia Nath Urea nitrogen/Creatinine [Mass ratio] 43.8 mg/mg Normal [facility] Comment on above: Performed By: #### L IPA, CMP ####[facility] [address] [place], [place] [address]Dr. Kasia Nath CBC AUTO DIFFon 02-13-2023 BASO # 0.0 103/ul Normal 0.0-0.1 [facility] Comment on above: Performed By: #### C BC ####[facility] [address] [address]Dr. Kasia Portillo Basophils/100 WBC (Bld) 0.5 % Normal 0.2-2.0 [facility] Comment on above: Performed By: #### C BC ####[facility] [address] [place], [place] [address]Dr. Kasia Nath EO # 0.1 103/ul Normal 0.0-0.7 [facility] Comment on above: Performed By: #### C BC ####[facility] [address] [place], [place] [address]Dr. Kasia Portillo Eosinophils/100 WBC (Bld) 1.0 % Normal 0.9-7.0 [facility] Comment on above: Performed By: #### C BC ####[facility] [address] [place], [place] [address]Dr. Kasia Portillo Erythrocyte distribution width (RBC) [Ratio] 12.8 % Normal 11.0-15.0 [facility] Comment on above: Performed By: #### C BC ####[facility] [address] [place], [place] [address]Dr. Kasia Nath Hematocrit (Bld) [Volume fraction] 38.5 % Normal 36.0-48.0 [facility] Comment on above: Performed By: #### C BC ####[facility] [address] [place], [place] [address]Dr. Kasia Nath Hemoglobin (Bld) [Mass/Vol] 13.0 g/dL Normal 12.0-16.0 [facility] Comment on above: Performed By: #### C BC ####[facility] [address] [place], [place] [address]Dr. Kasia Nath IG # 0.02 10e3/ul Normal 0.00-0.03 [facility] Comment on above: Performed By: #### C BC ####[facility] [address] [place], [place] [address]Dr. Kasia Nath IG % 0.2 % Normal 0.0-0.5 [facility] Comment on above: Performed By: #### C BC ####[facility] [address] [address]Dr. Kasia Portillo LYMPH # 0.9 103/ul Critically low 1.2-3.8 [facility] Comment on above: Performed By: #### C BC ####[facility] [address] [address]Dr. Kasia Portillo Lymphocytes/100 WBC (Bld) 10.0 % Critically low 20.5-60.0 [facility] Comment on above: Performed By: #### C BC ####[facility] [address] [place], [place] [address]Dr. Kasia Nath MANUAL DIFF REQ NO Normal [facility] Comment on above: Performed By: #### C BC ####[facility] [address] [place], [place] [address]Dr. Kasia Portillo MCH (RBC) [Entitic mass] 29.5 pg Normal 26.7-34.0 [facility] Comment on above: Performed By: #### C BC ####[facility] [address] [place], [place] [address]Dr. Kasia Portillo MCHC (RBC) [Mass/Vol] 33.8 g/dL Normal 29.9-35.2 [facility] Comment on above: Performed By: #### C BC ####[facility] [address] [address]Dr. Kasia Nath MCV (RBC) [Entitic vol] 87.5 fL Normal 81.0-99.0 [facility] Comment on above: Performed By: #### C BC ####[facility] [address] [place], [place] [address]DrDoreen Nath MONO # 0.5 103/ul Normal 0.3-0.8 [facility] Comment on above: Performed By: #### C BC ####[facility] [address] [address]Dr. Kasia Nath Monocytes/100 WBC (Bld) 5.7 % Normal 1.7-12.0 [facility] Comment on above: Performed By: #### C BC ####[facility] [address] [address]Dr. Kasia Nath NEUT # 7.2 103/ul Critically high 1.4-6.5 [facility] Comment on above: Performed By: #### C BC ####[facility] [address] [address]Dr. Kasia Nath Neutrophils/100 WBC (Bld) 82.6 % Critically high 43.0-75.0 [facility] Comment on above: Performed By: #### C BC ####[facility] [address] [address]Dr. Kasia Nath Platelet mean volume (Bld) [Entitic vol] 11.8 fL Normal 9.5-13.5 [facility] Comment on above: Performed By: #### C BC ####[facility] [address] [address] [place], [place] [address]Dr. Kasia Nath PLT 187 103/ul Normal 150-450 The [facility] Comment on above: Performed By: #### C BC ####[facility] [address] [place], [place] [address]Dr. Kasia Nath RBC 4.40 106/ul Normal 4.20-5.40 The [facility] Comment on above: Performed By: #### C BC ####[facility] [address] [place], [place] [address]Dr. Kasia Nath WBC 8.8 103/ul Normal 4.0-11.0 The [facility] Comment on above: Performed By: #### C BC ####[facility] Ymrvmkpz[address] [place], [place] [address]Dr. Kasia Nath CT ABD/PELVIS WO CONon 02-13 [...] JACOB MCCURDY Date: 2023-02-13 14:40 Normal The [facility] CULTURE URINEon 02-13-2023 CULTURE URINE Culture Observations : LIGHT GROWTH OF MIXED GENITAL VON. NO POTENTIAL PATHOGENS SEEN. Normal The [facility] Comment on above: Performed By: #### U RCX ####[facility] [address] [address]Dr. Kasia Nath Covid-19 PCR ([facility])on SARS-CoV-2 (COVID-19) RNA FERN+probe Ql (Unsp spec) Not detected Normal NOT DETECTED The [facility] Comment on above: Result Comment: When [...] for this test is supported by the [place] of Health and Human Service's declaration that [...] used). Performed By: #### P OCGLUC #### [facility] [address] [place] [address] Dr. Kasia Nath GI PANEL (PCR)on 02-13-2023 Adenovirus F 40/41 Not detected Normal NOT DETECTED The [facility] Comment on above: Performed By: #### C BC #### [facility] [address] [place] [address] Dr. Kasia Nath Astrovirus Not detected Normal NOT DETECTED The [facility] Comment on above: Performed By: #### C BC #### [facility] [address] [place] [address] Dr. Kasia Del Real. Diff toxin A/B Not detected Normal NOT DETECTED The [facility] Comment on above: Performed By: #### C BC #### [facility] [address] [place] [address] Dr. Kasia Nath Campylobacter Not detected Normal NOT DETECTED The [facility] Comment on above: Performed By: #### C BC #### [facility] [address] [place] [address] Dr. Kasia Nath Cryptosporidium Not detected Normal NOT DETECTED The [facility] Comment on above: Performed By: #### C BC #### [facility] [address] [place] [address] Dr. Kasia Nath Cyclos. Cayetanensis Not detected Normal NOT DETECTED The [facility] Comment on above: Performed By: #### C BC #### [facility] [address] [place] [address] Dr. Kasia Nath E. Coli O157 Not Applicable Normal Not Applicable The [facility] Comment on above: Performed By: #### C BC #### [facility] [address] [place] [address] Dr. Kasia Nath E. histolytica Not detected Normal NOT DETECTED The [facility] Comment on above: Performed By: #### C BC #### [facility] [address] [place] [address] Dr. Kasia Nath EAEC Not detected Normal NOT DETECTED The [facility] Comment on above: Performed By: #### C BC #### [facility] [address] [place] [address] Dr. Kasia Nath EIEC Not detected Normal NOT DETECTED The [facility] Comment on above: Performed By: #### C BC #### [facility] [address] [place] [address] Dr. Kasia Nath EPEC Not detected Normal NOT DETECTED The [facility] Comment on above: Performed By: #### C BC #### [facility] [address] [place] [address] Dr. Kasia Nath ETEC Not detected Normal NOT DETECTED The [facility] Comment on above: Performed By: #### C BC #### [facility] [address] [place] [address] Dr. Kasia Nath G. Lamblia Not detected Normal NOT DETECTED The [facility] Comment on above: Performed By: #### C BC #### [facility] [address] [place] [address] Dr. Kasia KHAN CONTROLS PASSED Normal The [facility] Comment on above: Performed By: #### C BC #### [facility] [address] [place] [address] Dr. Kasia THOMPSON [facility] HEADER GI PANEL BACTERIA Normal [facility] Comment on above: Performed By: #### C BC #### [facility] [address] [place] [address] Dr. Kasia THOMPSON ECOLI GI PANEL DIARRHEAGEN IC E.COLI / SHIGELLA Normal The [facility] Comment on above: Performed By: #### C BC #### [facility] [address] [place] [address] Dr. Kasia GE INFO SEE BELOW Normal [facility] Comment on above: Result Comment: EAEC - Enteroaggregative E. Coli EPEC- Enteropathogenic E. Coli ETEC- Enterotoxigenic E. Coli lt/st STEC- Shigella-like toxin-producing E. Coli stx1/stx2 EIEC- Shigella/Enteroinvasive E. Coli Performed By: #### C BC #### [facility] [address] [place] [address] Dr. Kasia GE PARASITES GI PANEL PARASITES Normal The [facility] Comment on above: Performed By: #### C BC #### [facility] [address] [place] [address] Dr. Kasia GE VIRUS GI PANEL VIRUSES Normal The [facility] Comment on above: Performed By: #### C BC #### [facility] [address] [place] [address] Dr. Kasia Nath Norovirus GI/GII Not detected Normal NOT DETECTED [facility] Comment on above: Performed By: #### C BC #### [facility] [address] [place] [address] Dr. Kasia Nath P. Shigelloides Not detected Normal NOT DETECTED The [facility] Comment on above: Performed By: #### C BC #### [facility] [address] [place] [address] Dr. Kasia Nath Rotavirus A Not detected Normal NOT DETECTED The [facility] Comment on above: Performed By: #### C BC #### [facility] [address] [place] [address] Dr. Kasia Nath Salmonella Not detected Normal NOT DETECTED The [facility] Comment on above: Performed By: #### C BC #### [facility] [address] [place] [address] Dr. Kasia Nath Sapovirus Not detected Normal NOT DETECTED The [facility] Comment on above: Performed By: #### C BC #### [facility] [address] [place] [address] Dr. Kasia Nath STEC Not detected Normal NOT DETECTED The [facility] Comment on above: Performed By: #### C BC #### [facility] [address] [place] [address] Dr. Kasia Nath Vibrio Not detected Normal NOT DETECTED The [facility] Comment on above: Performed By: #### C BC #### [facility] [address] [address] [address] Kasia Nath Vibrio Cholera Not detected Normal NOT DETECTED [facility] Comment on above: Performed By: #### C BC #### [facility] [address] [address] [address] Kasia Nath Y. Enterocolitica Not detected Normal NOT DETECTED [facility] Comment on above: Performed By: #### C BC #### [facility] [address] [address] [address] Kasia Nath LACTATE/LACTIC ACIDon 2022 Lactate [Moles/Vol] 1.7 mmol/L Normal 0.4-2.0 [facility] Comment on above: Performed By: #### L ACT ####[facility] [address] [address]Dr. Kasia Nath LIPASEon 02-13-2023 Lipase [Catalytic activity/Vol] 82.0 U/L Normal 73.0-393.0 [facility] Comment on above: Performed By: #### L IPA, CMP #### [facility] [address] [address] [address] Kasia Nath POINT OF CARE GLUCOSEon Glucose [Mass/Vol] 229 mg/dL Critically high 74-106 [facility] Comment on above: Performed By: #### P OCGLUC #### [facility] [address] [place] [address] Dr. Kasia Nath Glucose [Mass/Vol] 474 mg/dL Critically high 74-106 [facility] Comment on above: Performed By: #### P OCGLUC #### [facility] [address] [address] [address] Kasia Nath PROF 14(COMP METB)on 023 Albumin [Mass/Vol] 3.4 g/dL Normal 3.4-5.0 [facility] Comment on above: Performed By: #### L IPA, CMP #### [facility] [address] [place] [address] Dr. Kasia Nath Albumin/Globulin [Mass ratio] 0.7 {ratio} Normal [facility] Comment on above: Performed By: #### L IPA, CMP #### [facility] [address] [address] [address] Kasia Nath ALP [Catalytic activity/Vol] 106 U/L Normal 46-116 [facility] Comment on above: Performed By: #### L IPA, CMP #### [facility] [address] [address] [address] Kasia Nath ALT [Catalytic activity/Vol] 21 U/L Normal 14-59 [facility] Comment on above: Performed By: #### L IPA, CMP #### [facility] [address] [place] [address] Dr. Kasia Nath Anion gap [Moles/Vol] 17.7 mmol/L Normal [facility] Comment on above: Performed By: #### L IPA, CMP #### [facility] [address] [place] [address] Dr. Kasia Nath AST [Catalytic activity/Vol] 11 U/L Critically low 15-37 [facility] Comment on above: Performed By: #### L IPA, CMP #### [facility] [address] [place] [address] Dr. Kasia Nath Bilirubin [Mass/Vol] 0.5 mg/dL Normal 0.2-1.0 [facility] Comment on above: Performed By: #### L IPA, CMP #### [facility] [address] [place] [address] Dr. Kasia Nath Calcium [Mass/Vol] 9.6 mg/dL Normal 8.5-10.1 [facility] Comment on above: Performed By: #### L IPA, CMP #### [facility] [address] [place] [address] Dr. Kasia Nath Chloride [Moles/Vol] 99 mmol/L Normal 98-107 [facility] Comment on above: Performed By: #### L IPA, CMP #### [facility] [address] [place] [address] Dr. Kasia Nath CO2 [Moles/Vol] 20.6 mmol/L Critically low 21.0-32.0 [facility] Comment on above: Performed By: #### L IPA, CMP #### [facility] [address] [address] [address] Kasia Nath Creatinine [Mass/Vol] 2.14 mg/dL Critically high 0.55-1.02 [facility] Comment on above: Performed By: #### L IPA, CMP #### [facility] [address] [address] [address] Kasia Nath EGFR-AF CITIZ[place] 27 mL/min/1.73m2 Critically low >=60 [facility] Comment on above: Performed By: #### L IPA, CMP #### [facility] [address] [place] [address] Dr. Kasia Nath EGFR-NON AF CITIZEN [place] 22 mL/min/1.73m2 Critically low >=60 [facility] Comment on above: Performed By: #### L IPA, CMP #### [facility] [address] [place] [address] Dr. Kasia Nath Globulin (S) [Mass/Vol] 4.8 g/dL Normal [facility] Comment on above: Performed By: #### L IPA, CMP #### [facility] [address] [place] [address] Dr. Kasia Nath Glucose [Mass/Vol] 498 mg/dL Critically high 74-106 [facility] Comment on above: Performed By: #### L IPA, CMP #### [facility] [address] [place] [address] Dr. Kasia Nath Potassium [Moles/Vol] 5.3 mmol/L Critically high 3.5-5.1 [facility] Comment on above: Performed By: #### L IPA, CMP #### [facility] [address] [place] [address] Dr. Kasia Nath Protein [Mass/Vol] 8.2 g/dL Normal 6.4-8.2 [facility] Comment on above: Performed By: #### L IPA, CMP #### [facility] [address] [place] [address] Dr. Kasia Nath Sodium [Moles/Vol] 132 mmol/L Critically low 136-145 Th e [facility] Comment on above: Performed By: #### L IPA, CMP #### [facility] [address] [address] [address] Kasia Nath Urea nitrogen [Mass/Vol] 86.0 mg/dL Critically high 7.0-18.0 [facility] Comment on above: Performed By: #### L IPA, CMP #### [facility] [address] [address] [address] Kasia Nath Urea nitrogen/Creatinine [Mass ratio] 40.2 mg/mg Normal The [facility] Comment on above: Performed By: #### L IPA, CMP #### [facility] [address] [place] [address] Dr. Kasia Nath UA RANDOM W/MICROSCOPICon BACTERIA TRACE Abnormal NONE SEEN [facility] Comment on above: Performed By: #### U AMIC ####[facility] [address] [place], [place] [address]Dr. Kasia Nath Bilirubin Ql (U) Negative Normal NEGATIVE [facility] Comment on above: Performed By: #### U AMIC ####[facility] [address] [place], [place] [address]DrDoreen Nath CAST SEEN Abnormal NONE [facility] Comment on above: Performed By: #### U AMIC ####[facility] [address] [address]Dr. Kasia Nath Clarity (U) CLEAR Normal CLEAR The [facility] Comment on above: Performed By: #### U AMIC ####[facility] [address] [address]Dr. Kasia Nath Color (U) LT. YELLOW Normal YELLOW The [facility] Comment on above: Performed By: #### U AMIC ####[facility] [address] [address]Dr. Kasia Nath Crystals LM Nom (Urine sed) NONE SEEN Normal NONE SEEN The [facility] Comment on above: Performed By: #### U AMIC ####[facility] [address] [address]Dr. Kasia Nath Epithelial cells LM Ql (Urine sed) FEW Abnormal NONE SEEN /RARE The [facility] Comment on above: Performed By: #### U AMIC ####[facility] [address] [place] [address]Dr. Kasia Nath Glucose Ql (U) >1000 Abnormal NEGATIVE The [facility] Comment on above: Performed By: #### U AMIC ####[facility] [address] [address]Dr. Kasia Nath Hemoglobin Ql (U) Negative Normal NEGATIVE The [facility] Comment on above: Performed By: #### U AMIC ####[facility] [address] [place], [place] [address]Dr. Kasia Nath HYALINE CAST RARE Normal The [facility] Comment on above: Performed By: #### U AMIC ####[facility] Rot[address] [place], [place] [address]Dr. Kasia Nath Ketones Ql (U) Negative Normal NEGATIVE The [facility] Comment on above: Performed By: #### U AMIC ####[facility] [address] [place], [place] [address]Dr. Kasia Nath LEUKOCYTES Negative Normal NEGATIVE The [facility] Comment on above: Performed By: #### U AMIC ####[facility] [address] [address]Dr. Kasia Nath MUCOUS NONE SEEN Normal NONE SEEN The [facility] Comment on above: Performed By: #### U AMIC ####[facility] [address] [place], [place] [address]Dr. Kasia Nath Nitrite Ql (U) Negative Normal NEGATIVE The [facility] Comment on above: Performed By: #### U AMIC ####[facility] [address] [place], [place] [address]Dr. Kasia Nath pH (U) 5.5 [pH] Normal 5-9 The [facility] Comment on above: Performed By: #### U AMIC ####[facility] [address] [place], [place] [address]Dr. Kasia Nath RBC 0-2 Normal 0-2 The [facility] Comment on above: Performed By: #### U AMIC ####[facility] [address] [address]Dr. Kasia Nath SPEC GRAVITY 1.015 Normal 1.005-<=1.0 25 The [facility] Comment on above: Performed By: #### U AMIC ####[facility] [address] [address]Dr. Kasia Nath UA PROTEIN TRACE Normal NEGATIVE/ TRACE The [facility] Comment on above: Performed By: #### U AMIC ####[facility] [address] [address]Dr. Kasia Nath Urobilinogen Qn (U) 0.2 {Meka'U}/dL Normal 0.2 - 1. 0 The [facility] Comment on above: Performed By: #### U AMIC ####[facility] [address] [place], [place] [address]Dr. Kasia Nath WBC 0-2 Abnormal NONE SEEN The [facility] Comment on above: Performed By: #### U AMIC ####[facility] [address] [address]Dr. Kasia Nath BNPon 01-16-2023 Natriuretic peptide B (Bld) [Mass/Vol] 1675.0 pg/mL Normal <=1,800.0 [facility] Comment on above: Performed By: #### B PRESS TECHNICIAN, CMP ####[facility] [address] [place], [place] [address]Dr. Kasia Nath PROF 14(COMP METB)on 023 Albumin [Mass/Vol] 3.4 g/dL Normal 3.4-5.[address] [facility] Comment on above: Performed By: #### B PRESS TECHNICIAN, CMP ####[facility] [address] [address]Dr. Kasia Nath Albumin/Globulin [Mass ratio] 0.8 {ratio} Normal The [facility] Comment on above: Performed By: #### B PRESS TECHNICIAN, CMP ####[facility] [address] [place] [address]Dr. Kasia Nath ALP [Catalytic activity/Vol] 99 U/L Normal 46-116 [facility] Comment on above: Performed By: #### B PRESS TECHNICIAN, CMP ####[facility] [address] [address]Dr. Kasia Nath ALT [Catalytic activity/Vol] 18 U/L Normal 14-59 [facility] Comment on above: Performed By: #### B PRESS TECHNICIAN, CMP ####[facility] [address] [address]Dr. Kasia Nath Anion gap [Moles/Vol] 10.6 mmol/L Normal [facility] Comment on above: Performed By: #### B PRESS TECHNICIAN, CMP ####[facility] [address] [place], [place] [address]Dr. Kasia Nath AST [Catalytic activity/Vol] 15 U/L Normal 15-37 [facility] Comment on above: Performed By: #### B PRESS TECHNICIAN, CMP ####[facility] Y[address] [place], [place] [address]Dr. Kasia Nath Bilirubin [Mass/Vol] 0.5 mg/dL Normal 0.2-1.0 [facility] Comment on above: Performed By: #### B PRESS TECHNICIAN, CMP ####[facility] [address] [place], [place] [address]Dr. Kasia Nath Calcium [Mass/Vol] 9.1 mg/dL Normal 8.5-10.1 [facility] Comment on above: Performed By: #### B PRESS TECHNICIAN, CMP ####[facility] [address] [address]Dr. Kasia Nath Chloride [Moles/Vol] 98 mmol/L Normal 98-107 [facility] Comment on above: Performed By: #### B PRESS TECHNICIAN, CMP ####[facility] [address] [address]Dr. Kasia Nath CO2 [Moles/Vol] 30.4 mmol/L Normal 21.0-32.0 [facility] Comment on above: Performed By: #### B PRESS TECHNICIAN, CMP ####[facility] [address] [address]Dr. Kasia Nath Creatinine [Mass/Vol] 1.44 mg/dL Critically high 0.55-1.02 [facility] Comment on above: Performed By: #### B PRESS TECHNICIAN, CMP ####[facility] [address] [id number]. Kasia Portillo EGFR-AF CITIZEN OF [place] 43 mL/min/1.73m2 Critically low >=60 [facility] Comment on above: Performed By: #### B PRESS TECHNICIAN, CMP ####[facility] [address] [place], [place] [address]Dr. Kasia Portillo EGFR-NON AF CITIZEN OF [place] 35 mL/min/1.73m2 Critically low >=60 [facility] Comment on above: Performed By: #### B PRESS TECHNICIAN, CMP ####[facility] [address] [place], [place] [address]Dr. Kasia Nath Globulin (S) [Mass/Vol] 4.4 g/dL Normal [facility] Comment on above: Performed By: #### B PRESS TECHNICIAN, CMP ####[facility] [address] [place], [place] [address]Dr. Fartuncristy Portillo Glucose [Mass/Vol] 401 mg/dL Critically high 74-106 [facility] Comment on above: Performed By: #### B PRESS TECHNICIAN, CMP ####[facility] [address] [place], [place] [address]Dr. Fartuncristy Portillo Potassium [Moles/Vol] 5.0 mmol/L Normal 3.5-5.1 [facility] Comment on above: Performed By: #### B PRESS TECHNICIAN, CMP ####[facility] [address] [place], [place] [address]Dr. Kasia Nath Protein [Mass/Vol] 7.8 g/dL Normal 6.4-8.2 [facility] Comment on above: Performed By: #### B PRESS TECHNICIAN, CMP ####[facility] [address] [place], [place] [address]Dr. Kasia Nath Sodium [Moles/Vol] 134 mmol/L Critically low 136-145 [facility] Comment on above: Performed By: #### B PRESS TECHNICIAN, CMP ####[facility] [address] [address]Dr. Kasia Nath Urea nitrogen [Mass/Vol] 46.0 mg/dL Critically high 7.0-18.0 [facility] Comment on above: Performed By: #### B PRESS TECHNICIAN, CMP ####[facility] [address] [address]Dr. Kasia Nath Urea nitrogen/Creatinine [Mass ratio] 31.9 mg/mg Normal [facility] Comment on above: Performed By: #### B PRESS TECHNICIAN, CMP ####[facility] [address] [address]Dr. Kasia Nath BNPon 01-05-2023 Natriuretic peptide B (Bld) [Mass/Vol] 1389.0 pg/mL Normal <=1,800.0 [facility] Comment on above: Performed By: #### B PRESS TECHNICIAN, CMADM, CMP ####[facility] [address] [address]Dr. Kasia Nath CARDIAC EMERY ADMITon 023 CK [Catalytic activity/Vol] 138 U/L Normal 26-192 [facility] Comment on above: Performed By: #### B PRESS TECHNICIAN, CMADM, CMP ####[facility] [address] [place], [place] [address]Dr. cristy Nath CK.MB [Mass/Vol] 2.22 ng/mL Normal <=3.60 [facility] Comment on above: Performed By: #### B PRESS TECHNICIAN, CMADM, CMP ####[facility] [address] [place], [place] [address]Dr. [facility] Nath HSTROP 15.9 pg/mL Normal 4.0-51.3 The [facility] Comment on above: Result Comment: CUT- OFF POINTS HAVE BEEN ESTABLISHED BASED ON THE FOURTH UNIVERSAL DEFINITIONS OF MYOCARDIAL INFARCTION. THE UPPER REFERENCE LIMIT (URL) OF TROPONIN, DEFINED THE 99TH PERCENTILE OF cTnI DISTRIBUTION IN A REFERENCE POPULATION, HAS BEEN CONFIRMED THE DECISION THRESHOLD FOR AR DIAGNOSIS. Performed By: #### B PRESS TECHNICIAN, CMADM, CMP ####[facility] [address] [place], [place] [address]FsDoreen Nath GRETTA 178 ng/mL Critically high 9-82 The [facility] Comment on above: Performed By: #### B PRESS TECHNICIAN, CMADM, CMP ####[facility] [address] [place], [place] [address]DlDr. Kasia Nath CBC AUTO DIFFon 01-05-2023 BASO # 0.1 103/ul Normal 0.0-0.1 [facility] Comment on above: Performed By: #### C BC #### [facility] [address] [address] [address] Kasia Nath Basophils/100 WBC (Bld) 0.7 % Normal 0.2-2.0 [facility] Comment on above: Performed By: #### C BC #### [facility] [address] [address] [address] Kasia Nath EO # 0.3 103/ul Normal 0.0-0.7 [facility] Comment on above: Performed By: #### C BC #### [facility] [address] [address] [address] Kasia Nath Eosinophils/100 WBC (Bld) 2.9 % Normal 0.9-7.0 [facility] [facility] Comment on above: Performed By: #### C BC #### [facility] [address] [address] [address] Kasia Nath Erythrocyte distribution width (RBC) [Ratio] 13.5 % Normal 11.0-15.0 [facility] Comment on above: Performed By: #### C BC #### [facility] [address] [address] [address] Kasia Nath Hematocrit (Bld) [Volume fraction] 39.8 % Normal 36.0-48.0 [facility] Comment on above: Performed By: #### C BC #### [facility] [address] [address] [address] Kasia Nath Hemoglobin (Bld) [Mass/Vol] 13.5 g/dL Normal 12.0-16.0 [facility] Comment on above: Performed By: #### C BC #### [facility] [address] [place] [address] Dr. Kasia Nath IG # 0.02 10e3/ul Normal 0.00-0.03 [facility] Comment on above: Performed By: #### C BC #### [facility] [address] [place] [address] Dr. Kasia Nath IG % 0.2 % Normal 0.0-0.5 [facility] Comment on above: Performed By: #### C BC #### [facility] [address] [place] [address] Dr. Kasia Nath LYMPH # 1.9 103/ul Normal 1.2-3.8 [facility] Comment on above: Performed By: #### C BC #### [facility] [address] [place] [address] Dr. Kasia Nath Lymphocytes/100 WBC (Bld) 22.0 % Normal 20.5-60.0 [facility] Comment on above: Performed By: #### C BC #### [facility] [address] [place] [address] Dr. Kasia Nath MANUAL DIFF REQ NO Normal [facility] Comment on above: Performed By: #### C BC #### [facility] [address] [place] [address] Dr. Kasia Nath MCH (RBC) [Entitic mass] 29.8 pg Normal 26.7-34.0 [facility] Comment on above: Performed By: #### C BC #### [facility] [address] [place] [address] Dr. Kasia Nath MCHC (RBC) [Mass/Vol] 33.9 g/dL Normal 29.9-35.2 [facility] Comment on above: Performed By: #### C BC #### [facility] [address] [place] [address] Dr. Kasia Nath MCV (RBC) [Entitic vol] 87.9 fL Normal 81.0-99.0 [facility] Comment on above: Performed By: #### C BC #### [facility] [address] [place] [address] Dr. Kasia Nath MONO # 0.8 103/ul Normal 0.3-0.8 [facility] Comment on above: Performed By: #### C BC #### [facility] [address] [place] [address] Dr. Kasia Nath Monocytes/100 WBC (Bld) 8.8 % Normal 1.7-12.0 [facility] Comment on above: Performed By: #### C BC #### [facility] [address] [place] [address] Dr. Kasia Nath NEUT # 5.6 103/ul Normal 1.4-6.5 [facility] Comment on above: Performed By: #### C BC #### [facility] [address] [place] [address] Dr. Kasia Nath Neutrophils/100 WBC (Bld) 65.4 % Normal 43.0-75.0 [facility] Comment on above: Performed By: #### C BC #### [facility] [address] [place] [address] Dr. Kasia Nath Platelet mean volume (Bld) [Entitic vol] 10.6 fL Normal 9.5-13.5 [facility] Comment on above: Performed By: #### C BC #### [facility] [address] [place] [address] Dr. Kasia Nath PLT 222 103/ul Normal 150-450 [facility] Comment on above: Performed By: #### C BC #### [facility] [address] [place] [address] Dr. Kasia Nath RBC 4.53 106/ul Normal 4.20-5.40 [facility] Comment on above: Performed By: #### C BC #### [facility] [address] [place] [address] Dr. Kasia Nath WBC 8.6 103/ul Normal 4.0-11.0 [facility] Comment on above: Performed By: #### C BC #### [facility] [address] [place] [address] Dr. Kasia Nath PROF 14(COMP METB)on 023 Albumin [Mass/Vol] 3.3 g/dL Critically low 3.4-5.0 [facility] Comment on above: Performed By: #### B PRESS TECHNICIAN, CMADM, CMP #### [facility] [address] [address] [address] Kasia Nath Albumin/Globulin [Mass ratio] 0.7 {ratio} Normal [facility] Comment on above: Performed By: #### B PRESS TECHNICIAN, CMADM, CMP #### [facility] [address] [address] [address] Kasia Nath ALP [Catalytic activity/Vol] 106 U/L Normal 46-116 [facility] Comment on above: Performed By: #### B PRESS TECHNICIAN, CMADM, CMP #### [facility] [address] [address] [address] Kasia Nath ALT [Catalytic activity/Vol] 22 U/L Normal 14-59 [facility] Comment on above: Performed By: #### B PRESS TECHNICIAN, CMADM, CMP #### [facility] [address] [address] [address] Kasia Nath Anion gap [Moles/Vol] 12.0 mmol/L Normal [facility] Comment on above: Performed By: #### B PRESS TECHNICIAN, CMADM, CMP #### [facility] [address] [address] [address] Kasia Nath AST [Catalytic activity/Vol] 23 U/L Normal 15-37 [facility] Comment on above: Performed By: #### B PRESS TECHNICIAN, CMADM, CMP #### [facility] [address] [address] [address] Kasia Nath Bilirubin [Mass/Vol] 0.7 mg/dL Normal 0.2-1.0 [facility] Comment on above: Performed By: #### B PRESS TECHNICIAN, CMADM, CMP #### [facility] [address] [address] [address] Kasia Nath Calcium [Mass/Vol] 8.8 mg/dL Normal 8.5-10.1 [facility] Comment on above: Performed By: #### B PRESS TECHNICIAN, CMADM, CMP #### [facility] [address] [address] [address] Kasia Nath Chloride [Moles/Vol] 98 mmol/L Normal 98-107 [facility] Comment on above: Performed By: #### B PRESS TECHNICIAN, CMADM, CMP #### [facility] [address] [address] [address] Kasia Nath CO2 [Moles/Vol] 30.2 mmol/L Normal 21.0-32.0 [facility] Comment on above: Performed By: #### B PRESS TECHNICIAN, CMADM, CMP #### [facility] [address] [place] [address] Dr. Kasia Nath Creatinine [Mass/Vol] 1.19 mg/dL Critically high 0.55-1.02 [facility] Comment on above: Performed By: #### B PRESS TECHNICIAN, CMADM, CMP #### [facility] [address] [place] [address] Dr. Kasia Nath EGFR-AF [place]IZ[place] 53 mL/min/1.73m2 Critically low >=60 [facility] Comment on above: Performed By: #### B PRESS TECHNICIAN, CMADM, CMP #### [facility] [address] [place] [address] Dr. Kasia Nath EGFR-NON AF CITIZEN OF [place] 44 mL/min/1.73m2 Critically low >=60 [facility] Comment on above: Performed By: #### B PRESS TECHNICIAN, CMADM, CMP #### [facility] [address] [place] [address] Dr. Kasia Ntah Globulin (S) [Mass/Vol] 4.7 g/dL Normal [facility] Comment on above: Performed By: #### B PRESS TECHNICIAN, CMADM, CMP #### [facility] [address] [place] [address] Dr. Kasia Nath Glucose [Mass/Vol] 124 mg/dL Critically high 74-106 [facility] Comment on above: Performed By: #### B PRESS TECHNICIAN, CMADM, CMP #### [facility] [address] [place] [address] Dr. Kasia Nath Potassium [Moles/Vol] 3.2 mmol/L Critically low 3.5-5.1 [facility] Comment on above: Performed By: #### B PRESS TECHNICIAN, CMADM, CMP #### [facility] [address] [address] [address] Kasia Nath Protein [Mass/Vol] 8.0 g/dL Normal 6.4-8.[address] [facility] Comment on above: Performed By: #### B PRESS TECHNICIAN, CMADM, CMP #### [facility] [address] [address] [address] Kasia Nath Sodium [Moles/Vol] 137 mmol/L Normal 136-[address] [facility] Comment on above: Performed By: #### B PRESS TECHNICIAN, CMADM, CMP #### [facility] [address] [address] [address] Kasia Nath Urea nitrogen [Mass/Vol] 29.0 mg/dL Critically high 7.0-18.0 [facility] Comment on above: Performed By: #### B PRESS TECHNICIAN, CMADM, CMP #### [facility] [address] [address] [address] Kasia Nath Urea nitrogen/Creatinine [Mass ratio] 24.4 mg/mg Normal [facility] Comment on above: Performed By: #### B PRESS TECHNICIAN, CMADM, CMP #### [facility] [address] [address] [address] Kasia Nath TROPONIN, HIGH SENSITIVITYon 01-05-2023 HSTROP 18.4 pg/mL Normal 4.0-51.3 The [facility] Comment on above: Result Comment: CUT- OFF POINTS HAVE BEEN ESTABLISHED BASED ON THE FOURTH UNIVERSAL DEFINITIONS OF MYOCARDIAL INFARCTION. THE UPPER REFERENCE LIMIT (URL) OF TROPONIN, DEFINED THE 99TH PERCENTILE OF cTnI DISTRIBUTION IN A REFERENCE POPULATION, HAS BEEN CONFIRMED THE DECISION THRESHOLD FOR AR DIAGNOSIS. Performed By: #### H STROPN ####[facility] [address] [address]Dr. Kasia Nath XR CHEST 1 Von 01-05-2023 [...] BIN ROJAS Date: 2023-01-05 04:39 Normal [facility] BNPon 01-02-2023 Natriuretic peptide B (Bld) [Mass/Vol] 2583.0 pg/mL Critically high <=1,800.0 [facility] Comment on above: Performed By: #### B PRESS TECHNICIAN, CMP ####[facility] [address] [address]Dr. Kasia Nath CBC AUTO DIFFon 01-02-2023 BASO # 0.1 103/ul Normal 0.0-0.1 [facility] Comment on above: Performed By: #### P OCGLUC #### [facility] [address] [address] [address] Kasia Nath Basophils/100 WBC (Bld) 0.9 % Normal 0.2-2.0 [facility] Comment on above: Performed By: #### P OCGLUC #### [facility] [address] [address] [address] Kasia Nath EO # 0.2 103/ul Normal 0.0-0.7 [facility] Comment on above: Performed By: #### P OCGLUC #### [facility] [address] [address] [address] Kasia Nath Eosinophils/100 WBC (Bld) 2.3 % Normal 0.9-7.0 [facility] Comment on above: Performed By: #### P OCGLUC #### [facility] [address] [address] [address] Kasia Nath Erythrocyte distribution width (RBC) [Ratio] 13.8 % Normal 11.0-15.0 [facility] Comment on above: Performed By: #### P OCGLUC #### [facility] [address] [place] [address] Dr. Kasia Nath Hematocrit (Bld) [Volume fraction] 35.5 % Critically low 36.0-48.0 [facility] Comment on above: Performed By: #### P OCGLUC #### [facility] [address] [place] [address] Dr. Kasia Nath Hemoglobin (Bld) [Mass/Vol] 11.6 g/dL Critically low 12.0-16.0 [facility] Comment on above: Performed By: #### P OCGLUC #### [facility] [address] [place] [address] Dr. Kasia Nath IG # 0.02 10e3/ul Normal 0.00-0.03 [facility] Comment on above: Performed By: #### P OCGLUC #### [facility] [address] [place] [address] Dr. Kasia Nath IG % 0.3 % Normal 0.0-0.5 [facility] Comment on above: Performed By: #### P OCGLUC #### [facility] [address] [place] [address] Dr. Kasia Nath LYMPH # 2.0 103/ul Normal 1.2-3.8 [facility] Comment on above: Performed By: #### P OCGLUC #### [facility] [address] [place] [address] Dr. Kasia Nath Lymphocytes/100 WBC (Bld) 24.8 % Normal 20.5-60.0 [facility] Comment on above: Performed By: #### P OCGLUC #### [facility] [address] [place] [address] Dr. Kasia Nath MANUAL DIFF REQ NO Normal [facility] Comment on above: Performed By: #### P OCGLUC #### [facility] [address] [place] [address] Dr. Kasia Nath MCH (RBC) [Entitic mass] 28.7 pg Normal 26.7-34.0 [facility] Comment on above: Performed By: #### P OCGLUC #### [facility] [address] [address] [address] Kasia Nath MCHC (RBC) [Mass/Vol] 32.7 g/dL Normal 29.9-35.2 [facility] Comment on above: Performed By: #### P OCGLUC #### [facility] [address] [address] [address] Kasia Nath MCV (RBC) [Entitic vol] 87.9 fL Normal 81.0-99.0 [facility] Comment on above: Performed By: #### P OCGLUC #### [facility] [address] [place] [address] Dr. Kasia Nath MONO # 0.8 103/ul Normal 0.3-0.8 [facility] Comment on above: Performed By: #### P OCGLUC #### [facility] [address] [place] [address] Dr. Kasia Nath Monocytes/100 WBC (Bld) 9.6 % Normal 1.7-12.0 [facility] Comment on above: Performed By: #### P OCGLUC #### [facility] [address] [place] [address] Dr. Kasia Nath NEUT # 5.0 103/ul Normal 1.4-6.5 [facility] Comment on above: Performed By: #### P OCGLUC #### [facility] [address] [place] [address] Dr. Kasia Nath Neutrophils/100 WBC (Bld) 62.1 % Normal 43.0-75.0 [facility] Comment on above: Performed By: #### P OCGLUC #### [facility] [address] [place] [address] Dr. Kasia Nath Platelet mean volume (Bld) [Entitic vol] 10.7 fL Normal 9.5-13.5 [facility] Comment on above: Performed By: #### P OCGLUC #### [facility] [address] [address] [address] Kasia Nath PLT 204 103/ul Normal 150-450 [facility] Comment on above: Performed By: #### P OCGLUC #### [facility] [address] [address] [address] Kasia Nath RBC 4.04 106/ul Critically low 4.20-5.40 [facility] Comment on above: Performed By: #### P OCGLUC #### [facility] [address] [address] [address] Kasia Nath WBC 8.0 103/ul Normal 4.0-11.0 [facility] Comment on above: Performed By: #### P OCGLUC #### [facility] [address] [address] [address] Kasia Nath GLYCOHEMOGLOBIN A1Con 2022 ADA RECOMMENDATION SEE BELOW Normal [facility] Comment on above: Result Comment: ADA RECOMMENDED LIMIT 4.0 - 6.0 ADA THERAPEUTIC TARGET < 7.0 ACTION SUGGESTED > 7.0 Performed By: #### A 1C ####[facility] [address] [address]Dr. Kasia Nath Glucose [Mass/Vol] 298 mg/dL Normal [facility] Comment on above: Performed By: #### A 1C ####[facility] [address] [address]Dr. Kasia Nath HbA1c (Bld) [Mass fraction] 12.0 % Critically high 4.5-6.2 [facility] Comment on above: Performed By: #### A 1C ####[facility] [address] [address]Dr. Kasia Nath POINT OF CARE GLUCOSEon 12-14 Glucose [Mass/Vol] 227 mg/dL Critically high 74-106 [facility] Comment on above: Performed By: #### C BC #### [facility] [address] [address] [address] Kasia Nath Glucose [Mass/Vol] 214 mg/dL Critically high 74-106 [facility] Comment on above: Performed By: #### C BC #### [facility] [address] [place], [place] [address] Dr. Kasia Nath PROF 14(COMP METB)on 023 Albumin [Mass/Vol] 2.6 g/dL Critically low 3.4-5.0 [facility] Comment on above: Performed By: #### B PRESS TECHNICIAN, CMP ####[facility] [address] [id number]. Kasia Nath Albumin/Globulin [Mass ratio] 0.6 {ratio} Normal [facility] Comment on above: Performed By: #### B PRESS TECHNICIAN, CMP ####[facility] [address] [id number]. Kasia Nath ALP [Catalytic activity/Vol] 94 U/L Normal 46-116 [facility] Comment on above: Performed By: #### B PRESS TECHNICIAN, CMP ####[facility] [address] [id number]. Kasia Nath ALT [Catalytic activity/Vol] 16 U/L Normal 14-59 [facility] Comment on above: Performed By: #### B PRESS TECHNICIAN, CMP ####[facility] [address] [id number]. Kaisa Nath Anion gap [Moles/Vol] 10.6 mmol/L Normal [facility] Comment on above: Performed By: #### B PRESS TECHNICIAN, CMP ####[facility] [address] [id number]. Kasia Nath AST [Catalytic activity/Vol] 15 U/L Normal 15-37 [facility] Comment on above: Performed By: #### B PRESS TECHNICIAN, CMP ####[facility] [address] [id number]. Kasia Nath Bilirubin [Mass/Vol] 0.8 mg/dL Normal 0.2-1.0 [facility] Comment on above: Performed By: #### B PRESS TECHNICIAN, CMP ####[facility] [address] [id number]. Kasia Nath Calcium [Mass/Vol] 8.5 mg/dL Normal 8.5-10.1 [facility] Comment on above: Performed By: #### B PRESS TECHNICIAN, CMP ####[facility] [address] [address]Dr. Kasia Nath Chloride [Moles/Vol] 102 mmol/L Normal 98-107 [facility] Comment on above: Performed By: #### B PRESS TECHNICIAN, CMP ####[facility] [address] [place], [place] [address]Dr. Kasia Nath CO2 [Moles/Vol] 30.2 mmol/L Normal 21.0-32.0 [facility] Comment on above: Performed By: #### B PRESS TECHNICIAN, CMP ####[facility] [address] [place], [place] [address]Dr. Kasia Nath Creatinine [Mass/Vol] 0.94 mg/dL Normal 0.55-1.02 [facility] Comment on above: Performed By: #### B PRESS TECHNICIAN, CMP ####[facility] [address] [place], [place] [address]Dr. Kasia Nath EGFR-AF CITIZEN OF [place] >60 Normal >=60 [facility] Comment on above: Performed By: #### B PRESS TECHNICIAN, CMP ####[facility] [address] [place], [place] [address]Dr. Kasia Nath EGFR-NON AF CITIZEN OF [place] 58 mL/min/1.73m2 Critically low >=60 [facility] Comment on above: Performed By: #### B PRESS TECHNICIAN, CMP ####[facility] [address] [place], [place] [address]Dr. Kasia Nath Globulin (S) [Mass/Vol] 4.0 g/dL Normal [facility] Comment on above: Performed By: #### B PRESS TECHNICIAN, CMP ####[facility] [address] [place], [place] [address]Dr. Kasia Nath Glucose [Mass/Vol] 150 mg/dL Critically high 74-106 [facility] Comment on above: Performed By: #### B PRESS TECHNICIAN, CMP ####[facility] [address] [place], [place] [address]Dr. Kasia Nath Potassium [Moles/Vol] 3.8 mmol/L Normal 3.5-5.1 [facility] Comment on above: Performed By: #### B PRESS TECHNICIAN, CMP ####[facility] [address] [address]Dr. Kasia Nath Protein [Mass/Vol] 6.6 g/dL Normal 6.4-8.2 [facility] Comment on above: Performed By: #### B PRESS TECHNICIAN, CMP ####[facility] [address] [address]Dr. Kasia Nath Sodium [Moles/Vol] 139 mmol/L Normal 136-[address] [facility] Comment on above: Performed By: #### B PRESS TECHNICIAN, CMP ####[facility] [address] [address]Dr. Kasia Nath Urea nitrogen [Mass/Vol] 24.0 mg/dL Critically high 7.0-18.0 [facility] Comment on above: Performed By: #### B PRESS TECHNICIAN, CMP ####[facility] [address] [place], [place] [address]Dr. Kasia Nath Urea nitrogen/Creatinine [Mass ratio] 25.5 mg/mg Normal [facility] Comment on above: Performed By: #### B PRESS TECHNICIAN, CMP ####[facility] [address] [place], [place] [address]Dr. Kasia Nath BNPon 01-01-2023 Natriuretic peptide B (Bld) [Mass/Vol] 1419.0 pg/mL Normal <=1,800.0 [facility] Comment on above: Performed By: #### B PRESS TECHNICIAN #### [facility] [address] [place] [address] Dr. Kasia Nath CARDIAC EMERY 3-6on 3 CK [Catalytic activity/Vol] 80 U/L Normal 26-192 [facility] Comment on above: Performed By: #### P OCGLUC #### [facility] [address] [place] [address] Dr. Kasia Nath CK.MB [Mass/Vol] 1.85 ng/mL Normal <=3.60 [facility] Comment on above: Performed By: #### P OCGLUC #### [facility] [address] [place] [address] Dr. Kasia Nath HSTROP 13.2 pg/mL Normal 4.0-51.3 The [facility] Comment on above: Result Comment: CUT- OFF POINTS HAVE BEEN ESTABLISHED BASED ON THE FOURTH UNIVERSAL DEFINITIONS OF MYOCARDIAL INFARCTION. THE UPPER REFERENCE LIMIT (URL) OF TROPONIN, DEFINED THE 99TH PERCENTILE OF cTnI DISTRIBUTION IN A REFERENCE POPULATION, HAS BEEN CONFIRMED THE DECISION THRESHOLD FOR AR DIAGNOSIS. Performed By: #### P OCGLUC #### [facility] [address] [place] [address] Dr. Kasia Nath CK [Catalytic activity/Vol] 73 U/L Normal 26-192 [facility] Comment on above: Performed By: #### P OCGLUC #### [facility] [address] [place] [address] Dr. Kasia Nath CK.MB [Mass/Vol] 1.71 ng/mL Normal <=3.60 [facility] Comment on above: Performed By: #### P OCGLUC #### [facility] [address] [place] [address] Dr. Kasia Nath HSTROP 13.6 pg/mL Normal 4.0-51.3 The [facility] Comment on above: Result Comment: CUT- OFF POINTS HAVE BEEN ESTABLISHED BASED ON THE FOURTH UNIVERSAL DEFINITIONS OF MYOCARDIAL INFARCTION. THE UPPER REFERENCE LIMIT (URL) OF TROPONIN, DEFINED THE 99TH PERCENTILE OF cTnI DISTRIBUTION IN A REFERENCE POPULATION, HAS BEEN CONFIRMED THE DECISION THRESHOLD FOR AR DIAGNOSIS. Performed By: #### P OCGLUC #### [facility] [address] [place] [address] Dr. Kasia Nath CARDIAC EMERY ADMITon 023 CK [Catalytic activity/Vol] 71 U/L Normal 26-192 [facility] Comment on above: Performed By: #### C BC #### [facility] [address] [place] [address] Dr. Kasia Nath CK.MB [Mass/Vol] 1.69 ng/mL Normal <=3.60 [facility] Comment on above: Performed By: #### C BC #### [facility] [address] [place] [address] Dr. Kasia Nath HSTROP 13.0 pg/mL Normal 4.0-51.3 The [facility] Comment on above: Result Comment: CUT- OFF POINTS HAVE BEEN ESTABLISHED BASED ON THE FOURTH UNIVERSAL DEFINITIONS OF MYOCARDIAL INFARCTION. THE UPPER REFERENCE LIMIT (URL) OF TROPONIN, DEFINED THE 99TH PERCENTILE OF cTnI DISTRIBUTION IN A REFERENCE POPULATION, HAS BEEN CONFIRMED THE DECISION THRESHOLD FOR AR DIAGNOSIS. Performed By: #### C BC #### [facility] [address] [place] [address] Dr. Kasia Nath GRETTA 75 ng/mL Normal 9-82 [facility] Comment on above: Performed By: #### C BC #### [facility] [address] [place] [place] [address] Dr. Kasia Nath CBC AUTO DIFFon 01-01-2023 BASO # 0.1 103/ul Normal 0.0-0.1 [facility] Comment on above: Performed By: #### C BC #### [facility] [address] [place] [address] Dr. Kasia Nath Basophils/100 WBC (Bld) 1.1 % Normal 0.2-2.0 [facility] Comment on above: Performed By: #### C BC #### [facility] [address] [place] [address] Dr. Kasia Nath EO # 0.2 103/ul Normal 0.0-0.7 [facility] Comment on above: Performed By: #### C BC #### [facility] [address] [place] [address] Dr. Kasia Nath Eosinophils/100 WBC (Bld) 2.9 % Normal 0.9-7.0 [facility] Comment on above: Performed By: #### C BC #### [facility] [address] [place] [address] Dr. Kasia Nath Erythrocyte distribution width (RBC) [Ratio] 13.8 % Normal 11.0-15.0 [facility] Comment on above: Performed By: #### C BC #### [facility] [address] [place] [address] Dr. Kasia Nath Hematocrit (Bld) [Volume fraction] 36.2 % Normal 36.0-48.0 [facility] Comment on above: Performed By: #### C BC #### [facility] [address] [place] [address] Dr. Kasia Nath Hemoglobin (Bld) [Mass/Vol] 12.1 g/dL Normal 12.0-16.0 [facility] Comment on above: Performed By: #### C BC #### [facility] [address] [place] [address] Dr. Kasia Nath IG # 0.02 10e3/ul Normal 0.00-0.03 [facility] Comment on above: Performed By: #### C BC #### [facility] [address] [place] [address] Dr. Kasia Nath IG % 0.3 % Normal 0.0-0.5 [facility] Comment on above: Performed By: #### C BC #### [facility] [address] [place] [address] Dr. Kasia Nath LYMPH # 1.5 103/ul Normal 1.2-3.8 [facility] Comment on above: Performed By: #### C BC #### [facility] [address] [place] [address] Dr. Kasia Nath Lymphocytes/100 WBC (Bld) 19.9 % Critically low 20.5-60.0 [facility] Comment on above: Performed By: #### C BC #### [facility] [address] [place] [address] Dr. Kasia Nath MANUAL DIFF REQ NO Normal [facility] Comment on above: Performed By: #### C BC #### [facility] [address] [place] [address] Dr. Kasia Nath MCH (RBC) [Entitic mass] 29.7 pg Normal 26.7-34.0 [facility] Comment on above: Performed By: #### C BC #### [facility] [address] [place] [address] Dr. Kasia Nath MCHC (RBC) [Mass/Vol] 33.4 g/dL Normal 29.9-35.2 [facility] Comment on above: Performed By: #### C BC #### [facility] [address] [address] [address] Kasia Nath MCV (RBC) [Entitic vol] 88.9 fL Normal 81.0-99.0 [facility] Comment on above: Performed By: #### C BC #### [facility] [address] [address] [address] Kasia Nath MONO # 0.6 103/ul Normal 0.3-0.8 [facility] Comment on above: Performed By: #### C BC #### [facility] [address] [address] [address] Kasia Nath Monocytes/100 WBC (Bld) 8.0 % Normal 1.7-12.0 [facility] Comment on above: Performed By: #### C BC #### [facility] [address] [place] [address] Dr. Kasia Nath NEUT # 5.1 103/ul Normal 1.4-6.5 [facility] Comment on above: Performed By: #### C BC #### [facility] [address] [place] [address] Dr. Kasia Nath Neutrophils/100 WBC (Bld) 67.8 % Normal 43.0-75.0 [facility] Comment on above: Performed By: #### C BC #### [facility] [address] [address] [address] Kasia Nath Platelet mean volume (Bld) [Entitic vol] 10.4 fL Normal 9.5-13.5 [facility] Comment on above: Performed By: #### C BC #### [facility] [address] [address] [address] Kasia Nath PLT 200 103/ul Normal 150-450 [facility] Comment on above: Performed By: #### C BC #### [facility] [address] [place] [address] Dr. Kasia Nath RBC 4.07 106/ul Critically low 4.20-5.40 [facility] Comment on above: Performed By: #### C BC #### [facility] [address] [place], [place] [address] Dr. Kasia aNth WBC 7.5 103/ul Normal 4.0-11.0 [facility] Comment on above: Performed By: #### C BC #### [facility] [address] [place], [place] [address] CHEST WO CONon [...] two extremes (Agatston score 101-1000). https://pubs.rsna.org/do i/abs/10.1148/[email or web address] Electronically authenticated by: RENETTA MICHAELS Date: 2023-01-01 14:55 Normal [facility] Covid-19 PCR ([facility]on 12-14 SARS-CoV-2 (COVID-19) RNA FERN+probe Ql (Unsp spec) Not detected Normal NOT DETECTED [facility] Comment on above: Result Comment: When [...] for this test is supported by the Practice Managers of Health and Human Service's declaration that [...] By: #### C [facility] #### [facility] [address] [place] [address] Dr. Kasia Nath ECHO LIMITED STUDYon 023 ECHO LIMITED STUDY Patient: SAIMA CALL Exam Date: 01/01/2023 : 1945 Gender:F Ordering : MARTINE GUERRERO . Admission #: [id number] Family : Order #: [id number] CLICK HERE TO VIEW EXAM ECHOCARDIOGRAM REPORT [...] M.D. on 01/01/2023 at 13:19 Normal [facility] GLYCOHEMOGLOBIN A1Con 2022 ADA RECOMMENDATION SEE BELOW Normal [facility] Comment on above: Result Comment: ADA RECOMMENDED LIMIT 4.0 - 6.0 ADA THERAPEUTIC TARGET < 7.0 ACTION SUGGESTED > 7.0 Performed By: #### P OCGLUC #### [facility] [address] [place] [address] Dr. Kasia Nath Glucose [Mass/Vol] 318 mg/dL Normal [facility] Comment on above: Performed By: #### P OCGLUC #### [facility] [address] [address] [address] Kasia Nath HbA1c (Bld) [Mass fraction] 12.7 % Critically high 4.5-6.2 [facility] Comment on above: Performed By: #### P OCGLUC #### [facility] [address] [address] [address] Kasia Nath POINT OF CARE GLUCOSEon 12-14 Glucose [Mass/Vol] 162 mg/dL Critically high 74-106 [facility] Comment on above: Performed By: #### P OCGLUC ####[facility] [address] [place], [place] [address]IbDr. Kasia Nath Glucose [Mass/Vol] 213 mg/dL Critically high 74-106 [facility] Comment on above: Performed By: #### P OCGLUC ####[facility] [address] [place], [place] [address]YkDr. Kasia Nath Glucose [Mass/Vol] 248 mg/dL Critically high 74-106 [facility] Comment on above: Performed By: #### P OCGLUC #### [facility] [address] [address] [address] Kasia Nath PROF CHEM 8 (BAS METB)on Anion gap [Moles/Vol] 11.8 mmol/L Normal [facility] Comment on above: Performed By: #### C BC #### [facility] [address] [place] [address] Dr. Kasia Nath Calcium [Mass/Vol] 8.4 mg/dL Critically low 8.5-10.1 [facility] Comment on above: Performed By: #### C BC #### [facility] [address] [address] [address] Kasia Nath Chloride [Moles/Vol] 102 mmol/L Normal 98-107 [facility] Comment on above: Performed By: #### C BC #### [facility] [address] [address] [address] Kasia Nath CO2 [Moles/Vol] 28.4 mmol/L Normal 21.0-32.0 [facility] Comment on above: Performed By: #### C BC #### [facility] [address] [address] [address] Kasia Nath Creatinine [Mass/Vol] 1.09 mg/dL Critically high 0.55-1.02 [facility] Comment on above: Performed By: #### C BC #### [facility] [address] [address] [address] Kasia Nath EGFR-AF CITIZEN OF [place] 59 mL/min/1.73m2 Critically low >=60 [facility] Comment on above: Performed By: #### C BC #### [facility] [address] [address] [address] Kasia Nath EGFR-NON AF CITIZEN OF [place] 49 mL/min/1.73m2 Critically low >=60 [facility] Comment on above: Performed By: #### C BC #### [facility] [address] [address] [address] Kasia Nath Glucose [Mass/Vol] 247 mg/dL Critically high 74-106 [facility] Comment on above: Performed By: #### C BC #### [facility] [address] [address] [address] Kasia Nath Potassium [Moles/Vol] 4.2 mmol/L Normal 3.5-5.1 [facility] Comment on above: Performed By: #### C BC #### [facility] [address] [address] [address] Kasia Nath Sodium [Moles/Vol] 138 mmol/L Normal 136-145 [facility] Comment on above: Performed By: #### C BC #### [facility] [address] [address] [address] Kasia Nath Urea nitrogen [Mass/Vol] 28.0 mg/dL Critically high 7.0-18.0 [facility] Comment on above: Performed By: #### C BC #### [facility] [address] [address] [address] Kasia Nath Urea nitrogen/Creatinine [Mass ratio] 25.7 mg/mg Normal [facility] Comment on above: Performed By: #### C BC #### [facility] [id number] Kasia Nath XR CHEST 1 Von [...] Miranda ALVAREZ Date: 2023-01-01 05:38 Normal [facility] ECHOCARDIO M/2D COMPLETEon 1 11-15-2021 ECHOCARDIO M/2D COMPLETE Patient: JOE CALL Exam Date: 09/15/2022 : 1945 Gender:F Ordering : YAMEL PANDYA [facility] Admission #: [id number] Family : DR SHANTEL STEVEN M.D. Order #: [id number] CLICK HERE TO VIEW EXAM ECHOCARDIOGRAM REPORT [...] M.D. on 09/15/2022 at 18:17 Normal [facility] GI PANEL (PCR)on 05-02-2022 Adenovirus F 40/41 Not detected Normal NOT DETECTED [facility] Comment on above: Performed By: #### P OCGLUC #### [facility] [address] [place] [address] Dr. Kasia Nath Astrovirus Not detected Normal NOT DETECTED [facility] Comment on above: Performed By: #### P OCGLUC #### [facility] [address] [place] [address] Dr. Kasia Nath C. Diff toxin A/B Not detected Normal NOT DETECTED [facility] Comment on above: Performed By: #### P OCGLUC #### [facility] [address] [place] [address] Dr. Kasia Nath Campylobacter Not detected Normal NOT DETECTED [facility] Comment on above: Performed By: #### P OCGLUC #### [facility] [address] [place] [address] Dr. Kasia Nath Cryptosporidium Not detected Normal NOT DETECTED [facility] Comment on above: Performed By: #### P OCGLUC #### [facility] [address] [place] [address] Dr. Kasia Nath Cyclos. Cayetanensis Not detected Normal NOT DETECTED [facility] Comment on above: Performed By: #### P OCGLUC #### [facility] [address] [place] [address] Dr. Kasia Nath E. Coli O157 Not Applicable Normal Not Applicable [facility] Comment on above: Performed By: #### P OCGLUC #### [facility] [address] [place] [address] Dr. Kasia Nath E. histolytica Not detected Normal NOT DETECTED [facility] Comment on above: Performed By: #### P OCGLUC #### [facility] [address] [place] [address] Dr. Kasia Nath EAEC Not detected Normal NOT DETECTED [facility] Comment on above: Performed By: #### P OCGLUC #### [facility] [address] [place] [address] Dr. Kasia Nath EIEC Not detected Normal NOT DETECTED [facility] Comment on above: Performed By: #### P OCGLUC #### [facility] [address] [place] [address] Dr. Kasia Nath EPEC Detected Abnormal NOT DETECTED [facility] Comment on above: Performed By: #### P OCGLUC #### [facility] [address] [address] [address] Kasia Nath ETEC Not detected Normal NOT DETECTED [facility] Comment on above: Performed By: #### P OCGLUC #### [facility] [address] [address] [address] Kasia Nath G. Lamblia Not detected Normal NOT DETECTED [facility] Comment on above: Performed By: #### P OCGLUC #### [facility] [address] [address] [address] Kasia KHAN CONTROLS PASSED Normal [facility] Comment on above: Performed By: #### P OCGLUC #### [facility] [address] [address] [address] Kasia THOMPSON JUNO HEADER GI PANEL BACTERIA Normal [facility] Comment on above: Performed By: #### P OCGLUC #### [facility] [address] [address] [address] Kasia GE ECOLI GI PANEL DIARRHEAGEN IC E.COLI / SHIGELLA Normal [facility] Comment on above: Performed By: #### P OCGLUC #### [facility] [address] [place] [address] Dr. Kasia GE INFO SEE BELOW Normal [facility] Comment on above: Result Comment: EAEC - Enteroaggregative E. Coli EPEC- Enteropathogenic E. Coli ETEC- Enterotoxigenic E. Coli lt/st STEC- Shigella-like toxin-producing E. Coli stx1/stx2 EIEC- Shigella/Enteroinvasive E. Coli Performed By: #### P OCGLUC #### [facility] [address] [address] [address] Kasia GE PARASITES GI PANEL PARASITES Normal [facility] Comment on above: Performed By: #### P OCGLUC #### [facility] [address] [address] [address] Kasia GE VIRUS GI PANEL VIRUSES Normal [facility] Comment on above: Performed By: #### P OCGLUC #### [facility] [address] [place] [address] Dr. Kasia Nath Norovirus GI/GII Not detected Normal NOT DETECTED [facility] Comment on above: Performed By: #### P OCGLUC #### [facility] [address] [place] [address] Dr. Kasia Garland. Shigelloides Not detected Normal NOT DETECTED [facility] Comment on above: Performed By: #### P OCGLUC #### [facility] [address] [place] [address] Dr. Kasia Nath Rotavirus A Not detected Normal NOT DETECTED [facility] Comment on above: Performed By: #### P OCGLUC #### [facility] [address] [place] [address] Dr. Kasia Nath Salmonella Not detected Normal NOT DETECTED [facility] Comment on above: Performed By: #### P OCGLUC #### [facility] [address] [place] [address] Dr. Kasia Nath Sapovirus Not detected Normal NOT DETECTED [facility] Comment on above: Performed By: #### P OCGLUC #### [facility] [address] [place] [address] Dr. Kasia Nath STEC Not detected Normal NOT DETECTED [facility] Comment on above: Performed By: #### P OCGLUC #### [facility] [address] [place] [address] Dr. Kasia Nath Vibrio Not detected Normal NOT DETECTED [facility] Comment on above: Performed By: #### P OCGLUC #### [facility] [address] [place] [address] Dr. Kasia Nath Vibrio Cholera Not detected Normal NOT DETECTED [facility] Comment on above: Performed By: #### P OCGLUC #### [facility] [address] [place] [address] Dr. Kasia Nath Y. Enterocolitica Not detected Normal NOT DETECTED [facility] Comment on above: Performed By: #### P OCGLUC #### [facility] [address] [place] [address] Dr. Kasia Nath [facility] BLD IMMUNO SCREENon 06-2 OCCULT BLOOD Negative Normal NEGATIVE [facility] Comment on above: Performed By: #### C BC #### [facility] [address] [address] [address] Kasia Nath XR knee BI 4Von 08-25-2021 XR knee BI 4V [facility] [employer] Other XR knee BI 4V [facility] [employer] Other XR knee BI 4V [address] [place] [address] [employer] Other XR knee BI 4V [address] [employer] Other XR knee BI 4V XRay Report [facility] [employer] Other XR knee BI 4V Signed [employer] Other XR knee BI 4V Patient: Joe Call MR#: [id number] [place] [employer] Other XR knee BI 4V 0 [employer] Other XR knee BI 4V : 1945 Acct:[id number] [employer] Other XR knee BI 4V Age/Sex: 76 / F ADM Date: 08/25/21 [employer] Other XR knee BI 4V Loc: [facility] Room: Type : REG CLI [employer] Other XR knee BI 4V Attending Dr: Akbar Cui II, MD [employer] Other XR knee BI 4V Ordering Provider: Akbar Cui MD [employer] Other XR knee BI 4V Date of Service: 08/25/21 [employer] Other XR knee BI 4V XR/XR knee BI 4V: Pain in right knee;Pain in left knee [employer] Other XR knee BI 4V Copies to: Akbar Cui MD [employer] Other XR knee BI 4V XR knee BI 4V 2020 1:32 PM [employer] Other XR knee BI 4V SIGNS AND SYMPTOMS: Bilateral knee pain with decreased range of motion, weakness [employer] Other XR knee BI 4V PROTOCOL: Frontal, lateral, and sunrise views of the bilateral knees [employer] Other XR knee BI 4V COMPARISON: None [employer] Other XR knee BI 4V FINDINGS: [employer] Other XR knee BI 4V There is mild narrow ing of the medial weightbearing joint spaces. There is mild patellofemoral [employer] Other XR knee BI 4V joint space loss. Th ere is spurring of the poles of the patella bilaterally. There is mild lateral [employer] Other XR knee BI 4V patellar subluxation bilaterally. There is no evidence of acute displaced fracture. Well-corticated [employer] Other XR knee BI 4V ossific structures o r separate from the right medial weightbearing joint space. This may represent a [employer] Other XR knee BI 4V calcified loose bodies. [employer] Other XR knee BI 4V X R/XR knee BI 4V [employer] Other XR knee BI 4V IMPRESSION: [employer] Other XR knee BI 4V Degenerative changes are noted are noted bilaterally, as above. [employer] Other XR knee BI 4V Well-corticated ossi fic structures or separate from the right medial weightbearing joint space. This [employer] Other XR knee BI 4V may represent a calcified loose bodies. [employer] Other XR knee BI 4V No acute displaced fracture. [employer] Other XR knee BI 4V There is mild latera l subluxation of the patella within the patellofemoral joint space bilaterally. [employer] Other XR knee BI 4V Impression dictated by: Emery Lobo M.D.08/25/2021 2:51 PM [employer] Other XR knee BI 4V Dictation Location: [place] [address] [employer] Other XR knee BI 4V Transcribed By: PWS 08/25/21 1451 [employer] Other XR knee BI 4V Dictated By: Emery Lobo II, MD 08/25/21 [facility] [employer] Other XR knee BI 4V Signed By: [employer] Other XR knee BI 4V 08/25/21 1451 [employer] Other XR pelvis 1-2Von 08-25-2021 XR pelvis 1-2V XR/XR pelvis 1-2V: Pain in right knee;Pain in left knee [employer] Other XR pelvis 1-2V XR pelvis 1-2V 08/25/2021 1:32 PM [employer] Other XR pelvis 1-2V SIGNS AND SYMPTOMS: Bilateral generalized knee pain, limited range of motion with weakness [employer] Other XR pelvis 1-2V PROTOCOL: Frontal radiograph of the pelvis [employer] Other XR pelvis 1-2V There is mild narrow ing of the weightbearing joint spaces. Mild degenerative changes are noted in [employer] Other XR pelvis 1-2V the symphysis pubis. There is no evidence of fracture or dislocation. Vascular calcifications are [employer] Other XR pelvis 1-2V present in the pelvis. [employer] Other XR pelvis 1-2V X R/XR pelvis 1-2V [employer] Other XR pelvis 1-2V No fracture or dislocation. [employer] Other XR pelvis 1-2V Mild degenerative changes are noted in the joint space of the hips. [employer] Other XR pelvis 1-2V Impression dictated by: Emery Lobo M.D.08/25/2021 2:54 PM [employer] Other XR pelvis 1-2V Transcribed By: [facility] 08/25/21 [facility] [employer] Other XR pelvis 1-2V Dictated By: Emery Lobo II, MD 08/25/21 [facility] [employer] Other XR pelvis 1-2V 08/25/21 [facility] [employer] Other Vital Signs Date Time Vital Sign Value Performing Clinician Facility 08-17-2025 13:20-0400 Diastolic blood pressure 65 mm[Hg] Shantel Steven MD Work Phone: [facility] 08-17-2025 13:20-0400 Heart rate 61 /min Shantel Steven MD Work Phone: [facility] 08-17-2025 13:20-0400 Systolic blood pressure 144 mm[Hg] Shantel Steven MD Work Phone: [facility] 08-05-2025 09:49-0400 Diastolic blood pressure 90 mm[Hg] Shantel Steven MD Work Phone: [facility] 08-05-2025 09:49-0400 Heart rate 67 /min Shantel Steven MD Work Phone: [facility] 08-05-2025 09:49-0400 Systolic blood pressure 176 mm[Hg] Shantel Steven MD Work Phone: [facility] 08-05-2025 09:39-0400 Body height 165.1 cm Shantel Steven MD Work Phone: [facility] 08-05-2025 09:39-0400 Body mass index (BMI) [Ratio] 42.7 kg/m2 Shantel Steven MD Work Phone: [facility] 08-05-2025 09:39-0400 Body weight 116.57 kg Shantel Steven MD Work Phone: [facility] 08-01-2025 08:56-0400 Body temperature 97.6 [degF] Shantel Steven MD Work Phone: [facility] 08-01-2025 08:56-0400 Diastolic blood pressure 84 mm[Hg] Shantel Steven MD Work Phone: [facility] 08-01-2025 08:56-0400 Heart rate 79 /min Shantel Steven MD Work Phone: [facility] 08-01-2025 08:56-0400 Inhaled oxygen flow rate 2 L/min Shantel Steven MD Work Phone: [facility] 08-01-2025 08:56-0400 Respiratory rate 16 /min Shantel Steven MD Work Phone: [facility] 08-01-2025 08:56-0400 SaO2% (BldA) [Mass fraction] 96 % Shantel Steven MD Work Phone: [facility] 08-01-2025 08:56-0400 Systolic blood pressure 162 mm[Hg] Shantel Steven MD Work Phone: [facility] 08-01-2025 08:54-0400 Body weight 118.3 kg Shantel Steven MD Work Phone: [facility] 07-30-2025 12:56-0400 Body height 165.1 cm Shantel Steven MD Work Phone: [facility] 07-30-2025 08:00-0400 Inhaled oxygen concentration 2 % Shantel Steven MD Work Phone: [facility] 07-29-2025 17:00-0400 Diastolic blood pressure 70 mm[Hg] Shantel Steven MD Work Phone: [facility] 07-29-2025 17:00-0400 Heart rate 61 /min Shantel Steven MD Work Phone: [facility] 07-29-2025 17:00-0400 Inhaled oxygen flow rate 2 L/min Shantel Steven MD Work Phone: [facility] 07-29-2025 17:00-0400 Respiratory rate 22 /min Shantel Steven MD Work Phone: [facility] 07-29-2025 17:00-0400 SaO2% (BldA) [Mass fraction] 98 % Shantel Steven MD Work Phone: [facility] 07-29-2025 17:00-0400 Systolic blood pressure 162 mm[Hg] Shantel Steven MD Work Phone: [facility] 07-29-2025 10:02-0400 Body height 165.1 cm Shantel Steven MD Work Phone: [facility] 07-29-2025 10:02-0400 Body weight 115.21 kg Shantel Steven MD Work Phone: [facility] 07-20-2025 14:19-0400 Body height 165.1 cm Shantel Steven MD Work Phone: [facility] 07-20-2025 14:19-0400 Body mass index (BMI) [Ratio] 42.3 kg/m2 Shantel Steven MD Work Phone: [facility] 07-20-2025 14:19-0400 Body temperature 97.3 [degF] Shantel Steven MD Work Phone: [facility] 07-20-2025 14:19-0400 Body weight 115.21 kg Shantel Steven MD Work Phone: [facility] 07-20-2025 14:19-0400 Diastolic blood pressure 73 mm[Hg] Shantel Steven MD Work Phone: [facility] 07-20-2025 14:19-0400 Heart rate 72 /min Shantel Steven MD Work Phone: [facility] 07-20-2025 14:19-0400 SaO2% (BldA) [Mass fraction] 98 % Shantel Steven MD Work Phone: [facility] 07-20-2025 14:19-0400 Systolic blood pressure 170 mm[Hg] Shantel Steven MD Work Phone: [facility] 06-04-2025 10:17-0400 Body height 165.1 cm Shantel Steven MD Work Phone: [facility] 06-04-2025 10:17-0400 Body mass index (BMI) [Ratio] 43.9 kg/m2 Shantel Steven MD Work Phone: [facility] 06-04-2025 10:17-0400 Body weight 119.74 kg Shantel Steven MD Work Phone: [facility] 06-04-2025 10:17-0400 Diastolic blood pressure 71 mm[Hg] Shantel Steven MD Work Phone: [facility] 06-04-2025 10:17-0400 Heart rate 57 /min Shantel Steven MD Work Phone: [facility] 06-04-2025 10:17-0400 Systolic blood pressure 161 mm[Hg] Shantel Steven MD Work Phone: [facility] 05-21-2025 11:08-0400 Body height 165.1 cm Shantel Steven MD Work Phone: [facility] 05-21-2025 11:08-0400 Body mass index (BMI) [Ratio] 44.7 kg/m2 Shantel Steven MD Work Phone: [facility] 05-21-2025 11:08-0400 Body weight 122.07 kg Shantel Steven MD Work Phone: [facility] 05-21-2025 11:08-0400 Diastolic blood pressure 93 mm[Hg] Shantel Steven MD Work Phone: [facility] 05-21-2025 11:08-0400 Heart rate 70 /min Shantel Steven MD Work Phone: [facility] 05-21-2025 11:08-0400 Respiratory rate 14 /min Shantel Steven MD Work Phone: [facility] 05-21-2025 11:08-0400 SaO2% (BldA) [Mass fraction] 95 % Shantel Steven MD Work Phone: [facility] 05-21-2025 11:08-0400 Systolic blood pressure 180 mm[Hg] Shantel Steven MD Work Phone: [facility] 04-21-2025 14:20-0400 Body height 165.1 cm Shantel Steven MD Work Phone: [facility] 04-21-2025 14:20-0400 Body mass index (BMI) [Ratio] 42.4 kg/m2 Shantel Steven MD Work Phone: [facility] 04-21-2025 14:20-0400 Body weight 115.66 kg Shantel Steven MD Work Phone: [facility] 04-21-2025 14:20-0400 Diastolic blood pressure 80 mm[Hg] Shantel Steven MD Work Phone: [facility] 04-21-2025 14:20-0400 Heart rate 63 /min Shantel Steven MD Work Phone: [facility] 04-21-2025 14:20-0400 Systolic blood pressure 165 mm[Hg] Shantel Steven MD Work Phone: [facility] 04-16-2025 10:20-0400 Body height 165.1 cm Shantel Steven MD Work Phone: [facility] 04-16-2025 10:20-0400 Body mass index (BMI) [Ratio] 42.4 kg/m2 Shantel Steven MD Work Phone: [facility] 04-16-2025 10:20-0400 Body weight 115.66 kg Shantel Steven MD Work Phone: [facility] 04-16-2025 10:20-0400 Diastolic blood pressure 77 mm[Hg] Shantel Steven MD Work Phone: [facility] 04-16-2025 10:20-0400 Heart rate 63 /min Shantel Steven MD Work Phone: [facility] 04-16-2025 10:20-0400 Respiratory rate 12 /min Shantel Steven MD Work Phone: [facility] 04-16-2025 10:20-0400 SaO2% (BldA) [Mass fraction] 96 % Shantel Steven MD Work Phone: [facility] 04-16-2025 10:20-0400 Systolic blood pressure 137 mm[Hg] Shantel Steven MD Work Phone: [facility] 03-24-2025 13:57-0400 Body height 165.1 cm Shantel Steven MD Work Phone: [facility] 03-24-2025 13:57-0400 Body mass index (BMI) [Ratio] 42.3 kg/m2 Shantel Steven MD Work Phone: [facility] 03-24-2025 13:57-0400 Body weight 115.21 kg Shantel Steven MD Work Phone: [facility] 03-24-2025 13:57-0400 Diastolic blood pressure 76 mm[Hg] Shantel Steven MD Work Phone: [facility] 03-24-2025 13:57-0400 Heart rate 56 /min Shantel Steven MD Work Phone: [facility] 03-24-2025 13:57-0400 Systolic blood pressure 179 mm[Hg] Shantel Steven MD Work Phone: [facility] 03-12-2025 19:10-0400 Diastolic blood pressure 69 mm[Hg] Shantel Steven MD Work Phone: [facility] 03-12-2025 19:10-0400 Heart rate 57 /min Shantel Steven MD Work Phone: [facility] 03-12-2025 19:10-0400 Respiratory rate 18 /min Shantel Steven MD Work Phone: [facility] 03-12-2025 19:10-0400 SaO2% (BldA) [Mass fraction] 99 % Shantel Steven MD Work Phone: [facility] 03-12-2025 19:10-0400 Systolic blood pressure 164 mm[Hg] Shantel Steven MD Work Phone: [facility] 03-12-2025 13:45-0400 Body height 165.1 cm Shantel Steven MD Work Phone: [facility] 03-12-2025 13:45-0400 Body weight 114.7 kg Shantel Steven MD Work Phone: [facility] 03-12-2025 13:44-0400 Body temperature 97.6 [degF] Shantel Steven MD Work Phone: [facility] 03-10-2025 11:05-0400 Body height 165.1 cm [facility] 03-10-2025 11:05-0400 Body mass index (BMI) [Ratio] 41.1 kg/m2 [facility] 03-10-2025 11:05-0400 Body weight 112.1 kg [facility] 03-10-2025 11:05-0400 Diastolic blood pressure 70 mm[Hg] [facility] 03-10-2025 11:05-0400 Systolic blood pressure 145 mm[Hg] [facility] 02-19-2025 08:58-0400 Body height 165.1 cm [facility] 02-19-2025 08:58-0400 Body mass index (BMI) [Ratio] 41.1 kg/m2 [facility] 02-19-2025 08:58-0400 Body temperature 97.3 [degF] [facility] 02-19-2025 08:58-0400 Body weight 112.09 kg [facility] 02-19-2025 08:58-0400 Diastolic blood pressure 58 mm[Hg] [facility] 02-19-2025 08:58-0400 Heart rate 68 /min [facility] 02-19-2025 08:58-0400 Respiratory rate 18 /min [facility] 02-19-2025 08:58-0400 SaO2% (BldA) [Mass fraction] 96 % [facility] 02-19-2025 08:58-0400 Systolic blood pressure 147 mm[Hg] [facility] 02-09-2025 14:03-0400 Body height 165.1 cm [facility] 02-09-2025 14:03-0400 Body mass index (BMI) [Ratio] 42.5 kg/m2 [facility] 02-09-2025 14:03-0400 Body weight 116.11 kg [facility] 02-09-2025 14:03-0400 Diastolic blood pressure 78 mm[Hg] [facility] 02-09-2025 14:03-0400 Heart rate 79 /min [facility] 02-09-2025 14:03-0400 Respiratory rate 12 /min [facility] 02-09-2025 14:03-0400 Systolic blood pressure 185 mm[Hg] [facility] 01-14-2025 10:00-0500 Body height 165.1 cm Shantel Steven MD Work Phone: [facility] 01-14-2025 10:00-0500 Body mass index (BMI) [Ratio] 44.3 kg/m2 Shantel Steven MD Work Phone: [facility] 01-14-2025 10:00-0500 Body weight 120.88 kg Shantel Steven MD Work Phone: [facility] 01-14-2025 10:00-0500 Diastolic blood pressure 80 mm[Hg] Shantel Steven MD Work Phone: [facility] 01-14-2025 10:00-0500 Heart rate 66 /min Shantel Steven MD Work Phone: [facility] 01-14-2025 10:00-0500 SaO2% (BldA) [Mass fraction] 93 % Shantel Steven MD Work Phone: [facility] 01-14-2025 10:00-0500 Systolic blood pressure 176 mm[Hg] Shantel Steven MD Work Phone: [facility] 01-06-2025 15:22-0500 Body height 165.1 cm Shantel Steven MD Work Phone: [facility] 01-06-2025 15:22-0500 Body mass index (BMI) [Ratio] 44.7 kg/m2 Shantel Steven MD Work Phone: [facility] 01-06-2025 15:22-0500 Body weight 122.01 kg Shantel Steven MD Work Phone: [facility] 01-06-2025 15:22-0500 Diastolic blood pressure 83 mm[Hg] Shantel Steven MD Work Phone: [facility] 01-06-2025 15:22-0500 Heart rate 66 /min Shantel Steven MD Work Phone: [facility] 01-06-2025 15:22-0500 Systolic blood pressure 155 mm[Hg] Shantel Steven MD Work Phone: [facility] 12-26-2024 12:58-0500 Body height 165.1 cm Jorge Luis Zavala DO Work Phone: [facility] 12-26-2024 12:58-0500 Body mass index (BMI) [Ratio] 43.6 kg/m2 Jorge Luis Zavala DO Work Phone: [facility] 12-26-2024 12:58-0500 Body weight 118.84 kg Jorge Luis Tupa DO Work Phone: [facility] 12-26-2024 12:58-0500 Diastolic blood pressure 79 mm[Hg] Jorge Luis Tupa DO Work Phone: [facility] 12-26-2024 12:58-0500 Heart rate 92 /min Jorge Luis Tupa DO Work Phone: [facility] 12-26-2024 12:58-0500 SaO2% (BldA) [Mass fraction] 97 % Jorge Luis Tupa DO Work Phone: [facility] 12-26-2024 12:58-0500 Systolic blood pressure 175 mm[Hg] Jorge Luis Tupa DO Work Phone: [facility] 12-09-2024 13:33-0500 Body height 165.1 cm Jorge Luis Tupa DO Work Phone: [facility] 12-09-2024 13:33-0500 Body mass index (BMI) [Ratio] 43.4 kg/m2 Jorge Luis Tupa DO Work Phone: [facility] 12-09-2024 13:33-0500 Body weight 118.55 kg Jorge Luis Tupa DO Work Phone: [facility] 12-09-2024 13:33-0500 Diastolic blood pressure 83 mm[Hg] Jorge Luis Tupa DO Work Phone: [facility] 12-09-2024 13:33-0500 Heart rate 81 /min Jorge Luis Tupa DO Work Phone: [facility] 12-09-2024 13:33-0500 Respiratory rate 14 /min Jorge Luis Tupa DO Work Phone: [facility] 12-09-2024 13:33-0500 Systolic blood pressure 156 mm[Hg] Jorge Luis Tupa DO Work Phone: [facility] 11-11-2024 13:46-0500 Body height 165.1 cm Jorge Luis Tupa DO Work Phone: [facility] 11-11-2024 13:46-0500 Body mass index (BMI) [Ratio] 41.1 kg/m2 Jorge Luis Tupa DO Work Phone: [facility] 11-11-2024 13:46-0500 Body temperature 97.3 [degF] Jorge Luis Tupa DO Work Phone: [facility] 11-11-2024 13:46-0500 Body weight 112.03 kg Jorge Luis Tupa DO Work Phone: [facility] 11-11-2024 13:46-0500 Diastolic blood pressure 84 mm[Hg] Jorge Luis Tupa DO Work Phone: [facility] 11-11-2024 13:46-0500 Heart rate 95 /min Jorge Luis Tupa DO Work Phone: [facility] 11-11-2024 13:46-0500 Respiratory rate 16 /min Jorge Luis Tupa DO Work Phone: [facility] 11-11-2024 13:46-0500 SaO2% (BldA) [Mass fraction] 96 % Jorge Luis Tupa DO Work Phone: [facility] 11-11-2024 13:46-0500 Systolic blood pressure 145 mm[Hg] Jorge Luis Tupa DO Work Phone: [facility] 11-03-2024 11:43-0500 Body height 165.1 cm Jorge Luis Tupa DO Work Phone: [facility] 11-03-2024 11:43-0500 Body mass index (BMI) [Ratio] 41.1 kg/m2 Jorge Luis Tupa DO Work Phone: [facility] 11-03-2024 11:43-0500 Body weight 112.03 kg Jorge Luis Tupa DO Work Phone: [facility] 11-03-2024 11:43-0500 Diastolic blood pressure 70 mm[Hg] Jorge Luis Tupa DO Work Phone: [facility] 11-03-2024 11:43-0500 Heart rate 78 /min Jorge Luis Tupa DO Work Phone: [facility] 11-03-2024 11:43-0500 SaO2% (BldA) [Mass fraction] 97 % Jorge Luis Tupa DO Work Phone: [facility] 11-03-2024 11:43-0500 Systolic blood pressure 138 mm[Hg] Jorge Luis Tupa DO Work Phone: [facility] 10-25-2024 07:49-0500 Diastolic blood pressure 73 mm[Hg] Jorge Luis Tupa DO Work Phone: [facility] 10-25-2024 07:49-0500 Heart rate 85 /min Jorge Luis Tupa DO Work Phone: [facility] 10-25-2024 07:49-0500 Respiratory rate 18 /min Jorge Luis Tupa DO Work Phone: [facility] 10-25-2024 07:49-0500 SaO2% (BldA) [Mass fraction] 98 % Jorge Luis Tupa DO Work Phone: [facility] 10-25-2024 07:49-0500 Systolic blood pressure 135 mm[Hg] Jorge Luis Tupa DO Work Phone: [facility] 10-25-2024 05:58-0500 Body height 165.1 cm Jorge Luis Tupa DO Work Phone: [facility] 10-25-2024 05:58-0500 Body temperature 98 [degF] Jorge Luis Tupa DO Work Phone: [facility] 10-25-2024 05:58-0500 Body weight 122.92 kg Jorge Luis Tupa DO Work Phone: [facility] 10-22-2024 04:48-0500 Body height 165.1 cm Jorge Luis Tupa DO Work Phone: [facility] 10-22-2024 04:48-0500 Body temperature 98.5 [degF] Jorge Luis Tupa DO Work Phone: [facility] 10-22-2024 04:48-0500 Body weight 114.8 kg Jorge Luis Tupa DO Work Phone: [facility] 10-22-2024 04:48-0500 Diastolic blood pressure 68 mm[Hg] Jorge Luis Tupa DO Work Phone: [facility] 10-22-2024 04:48-0500 Heart rate 100 /min Jorge Luis Tupa DO Work Phone: [facility] 10-22-2024 04:48-0500 Respiratory rate 18 /min Jorge Luis Tupa DO Work Phone: [facility] 10-22-2024 04:48-0500 SaO2% (BldA) [Mass fraction] 97 % Jorge Luis Tupa DO Work Phone: [facility] 10-22-2024 04:48-0500 Systolic blood pressure 132 mm[Hg] Jorge Luis Tupa DO Work Phone: [facility] 10-20-2024 12:00-0500 Body temperature 97.4 [degF] Jorge Luis Tupa DO Work Phone: [facility] 10-20-2024 12:00-0500 Diastolic blood pressure 73 mm[Hg] Jorge Luis Tupa DO Work Phone: [facility] 10-20-2024 12:00-0500 Heart rate 98 /min Jorge Luis Tupa DO Work Phone: [facility] 10-20-2024 12:00-0500 Respiratory rate 20 /min Jorge Luis Tupa DO Work Phone: [facility] 10-20-2024 12:00-0500 SaO2% (BldA) [Mass fraction] 98 % Jorge Luis Tupa DO Work Phone: [facility] 10-20-2024 12:00-0500 Systolic blood pressure 116 mm[Hg] Jorge Luis Camargopa DO Work Phone: [facility] 10-20-2024 05:57-0500 Body weight 110.9 kg Jorge Luis Tupa DO Work Phone: [facility] 10-17-2024 14:18-0500 Body height 165.1 cm Jorge Luis Camargopa DO Work Phone: [facility] 10-01-2024 09:51-0500 Body height 165.1 cm Christel Chacon MD Work Phone: [facility] 10-01-2024 09:51-0500 Body mass index (BMI) [Ratio] 42.27 kg/m2 Christel Chacon MD Work Phone: [facility] 10-01-2024 09:51-0500 Body weight 115.21 kg Christel Chacon MD Work Phone: [facility] 10-01-2024 09:51-0500 Diastolic blood pressure 110 mm[Hg] Christel Chacon MD Work Phone: [facility] 10-01-2024 09:51-0500 Systolic blood pressure 138 mm[Hg] Christel Chacon MD Work Phone: [facility] 08-07-2024 10:04-0400 Body height 165.1 cm MD Shantel Steven Work Phone: [facility] 08-07-2024 10:04-0400 Body mass index (BMI) [Ratio] 43.1 kg/m2 MD Shantel Steven Work Phone: [facility] 08-07-2024 10:04-0400 Body weight 117.48 kg MD Shantel Steven Work Phone: [facility] 08-07-2024 10:04-0400 Diastolic blood pressure 69 mm[Hg] MD Shantel Steven Work Phone: [facility] 08-07-2024 10:04-0400 Heart rate 52 /min MD Shantel Steven Work Phone: [facility] 08-07-2024 10:04-0400 SaO2% (BldA) [Mass fraction] 93 % MD Shantel Steven Work Phone: [facility] 08-07-2024 10:04-0400 Systolic blood pressure 117 mm[Hg] MD Shantel Steven Work Phone: [facility] 07-22-2024 13:15-0400 Body height 165.1 cm Christel Chacon MD Work Phone: [facility] 07-22-2024 13:15-0400 Body mass index (BMI) [Ratio] 42.6 kg/m2 Christel Chacon MD Work Phone: [facility] 07-22-2024 13:15-0400 Body weight 116.12 kg Christel Chacon MD Work Phone: [facility] 07-22-2024 13:15-0400 Diastolic blood pressure 82 mm[Hg] Christel Chacon MD Work Phone: [facility] 07-22-2024 13:15-0400 Systolic blood pressure 130 mm[Hg] Christel Chacon MD Work Phone: [facility] 07-16-2024 10:20-0400 Body height 165.1 cm MD Shantel Steven Work Phone: [facility] 07-16-2024 10:20-0400 Body mass index (BMI) [Ratio] 43.1 kg/m2 MD Shantel Steven Work Phone: [facility] 07-16-2024 10:20-0400 Body weight 117.48 kg MD Shantel Steven Work Phone: [facility] 07-16-2024 10:20-0400 Diastolic blood pressure 80 mm[Hg] MD Shantel Steven Work Phone: [facility] 07-16-2024 10:20-0400 Heart rate 60 /min MD Shantel Steven Work Phone: [facility] 07-16-2024 10:20-0400 Systolic blood pressure 151 mm[Hg] MD Shantel Steven Work Phone: [facility] 07-10-2024 13:40-0400 Body height 165.1 cm Lizett Gillmor [employer] TECH[employer]ICIAN Work Phone: [facility] 07-10-2024 13:40-0400 Body mass index (BMI) [Ratio] 42.43 kg/m2 Lizett Gillmor PRESS TECHNICIAN Work Phone: [facility] 07-10-2024 13:40-0400 Body weight 115.67 kg Lizett Gillmor PRESS TECHNICIAN Work Phone: [facility] 07-10-2024 13:40-0400 Diastolic blood pressure 86 mm[Hg] Lizett Gillmor PRESS TECHNICIAN Work Phone: [facility] 07-10-2024 13:40-0400 Systolic blood pressure 132 mm[Hg] Lizett Gillmor PRESS TECHNICIAN Work Phone: [facility] 07-07-2024 11:41-0400 Body height 165.1 cm MD Shantel Steven Work Phone: [facility] 07-07-2024 11:41-0400 Body mass index (BMI) [Ratio] 42.4 kg/m2 MD Shantel Steven Work Phone: [facility] 07-07-2024 11:41-0400 Body weight 115.66 kg MD Shantel Steven Work Phone: [facility] 07-07-2024 11:41-0400 Diastolic blood pressure 79 mm[Hg] MD Shantel Steven Work Phone: [facility] 07-07-2024 11:41-0400 Heart rate 66 /min MD Shantel Steven Work Phone: [facility] 07-07-2024 11:41-0400 Systolic blood pressure 132 mm[Hg] MD Shantel Steven Work Phone: [facility] 06-16-2024 13:08-0400 Body height 165.1 cm MD Shantel Steven Work Phone: [facility] 06-16-2024 13:08-0400 Body mass index (BMI) [Ratio] 41.9 kg/m2 MD Shantel Steven Work Phone: [facility] 06-16-2024 13:08-0400 Body weight 114.3 kg MD Shantel Steven Work Phone: [facility] 06-16-2024 13:08-0400 Diastolic blood pressure 73 mm[Hg] MD Shantel Steven Work Phone: [facility] 06-16-2024 13:08-0400 Heart rate 55 /min MD Shantel Steven Work Phone: [facility] 06-16-2024 13:08-0400 Systolic blood pressure 137 mm[Hg] MD Shantel Steven Work Phone: [facility] 06-05-2024 11:51-0400 Body height 165.1 cm MD Shantel Steven Work Phone: [facility] 06-05-2024 11:51-0400 Body mass index (BMI) [Ratio] 43.2 kg/m2 MD Shantel Steven Work Phone: [facility] 06-05-2024 11:51-0400 Body temperature 96.6 [degF] MD Shantel Steven Work Phone: [facility] 06-05-2024 11:51-0400 Body weight 117.7 kg MD Shantel Steven Work Phone: [facility] 06-05-2024 11:51-0400 Diastolic blood pressure 74 mm[Hg] MD Shantel Steven Work Phone: [facility] 06-05-2024 11:51-0400 Heart rate 63 /min MD Shantel Steven Work Phone: [facility] 06-05-2024 11:51-0400 Respiratory rate 18 /min MD Shantel Steven Work Phone: [facility] 06-05-2024 11:51-0400 SaO2% (BldA) [Mass fraction] 97 % MD Shantel Steven Work Phone: [facility] 06-05-2024 11:51-0400 Systolic blood pressure 138 mm[Hg] MD Shantel Steven Work Phone: [facility] 05-22-2024 09:18-0400 Heart rate 55 /min MD Shantel Steven Work Phone: [facility] 05-22-2024 09:09-0400 Body temperature 97.8 [degF] MD Shantel Steven Work Phone: [facility] 05-22-2024 09:09-0400 Diastolic blood pressure 64 mm[Hg] MD Shantel Steven Work Phone: [facility] 05-22-2024 09:09-0400 Respiratory rate 22 /min MD Shantel Steven Work Phone: [facility] 05-22-2024 09:09-0400 SaO2% (BldA) [Mass fraction] 94 % MD Sahntel Steven Work Phone: [facility] 05-22-2024 09:09-0400 Systolic blood pressure 140 mm[Hg] MD Shantel Steven Work Phone: [facility] 05-22-2024 09:08-0400 Body height 165.1 cm MD Shantel tSeven Work Phone: [facility] 05-22-2024 09:08-0400 Body weight 117.48 kg MD Shantel Steven Work Phone: [facility] 05-19-2024 14:16-0400 Body height 165.1 cm MD Shantel Steven Work Phone: [facility] 05-19-2024 14:16-0400 Body mass index (BMI) [Ratio] 43.1 kg/m2 MD Shantel Steven Work Phone: [facility] 05-19-2024 14:16-0400 Body weight 117.48 kg MD Shantel Steven Work Phone: [facility] 05-19-2024 14:16-0400 Diastolic blood pressure 72 mm[Hg] MD Shantel Steven Work Phone: [facility] 05-19-2024 14:16-0400 Heart rate 56 /min MD Shantel Steven Work Phone: [facility] 05-19-2024 14:16-0400 Systolic blood pressure 133 mm[Hg] MD Shantel Steven Work Phone: [facility] 05-07-2024 11:52-0400 Body height 165.1 cm MD Shantel Steven Work Phone: [facility] 05-07-2024 11:52-0400 Body mass index (BMI) [Ratio] 41.5 kg/m2 MD Shantel Steven Work Phone: [facility] 05-07-2024 11:52-0400 Body temperature 98.5 [degF] MD Shantel Steven Work Phone: [facility] 05-07-2024 11:52-0400 Body weight 113.39 kg MD Shantel Steven Work Phone: [facility] 05-07-2024 11:52-0400 Diastolic blood pressure 81 mm[Hg] MD Shantel Steven Work Phone: [facility] 05-07-2024 11:52-0400 Heart rate 91 /min MD Shantel Steven Work Phone: [facility] 05-07-2024 11:52-0400 Systolic blood pressure 141 mm[Hg] MD Shantel Steven Work Phone: [facility] 04-29-2024 12:54-0400 Body height 165.1 cm MD Shantel Steven Work Phone: [facility] 04-29-2024 12:54-0400 Body mass index (BMI) [Ratio] 41.5 kg/m2 MD Shantel Steven Work Phone: [facility] 04-29-2024 12:54-0400 Body weight 113.39 kg MD Shantel Steven Work Phone: [facility] 04-29-2024 12:54-0400 Diastolic blood pressure 58 mm[Hg] MD Shantel Steven Work Phone: [facility] 04-29-2024 12:54-0400 Heart rate 54 /min MD Shantel Steven Work Phone: [facility] 04-29-2024 12:54-0400 Systolic blood pressure 90 mm[Hg] MD Shantel Steven Work Phone: [facility] 04-03-2024 11:29-0400 Body height 165.1 cm MD Shantel Steven Work Phone: [facility] 04-03-2024 11:29-0400 Body mass index (BMI) [Ratio] 43.7 kg/m2 MD Shantel Steven Work Phone: [facility] 04-03-2024 11:29-0400 Body weight 119.29 kg MD Shantel Steven Work Phone: [facility] 04-03-2024 11:29-0400 Diastolic blood pressure 71 mm[Hg] MD Shantel Steven Work Phone: [facility] 04-03-2024 11:29-0400 Heart rate 56 /min MD Shantel Steven Work Phone: [facility] 04-03-2024 11:29-0400 Systolic blood pressure 116 mm[Hg] MD Shantel Steven Work Phone: [facility] 03-25-2024 15:15-0400 Body height 165.1 cm MD Shantel Steven Work Phone: [facility] 03-25-2024 15:15-0400 Body mass index (BMI) [Ratio] 43.9 kg/m2 MD Shantel Steven Work Phone: [facility] 03-25-2024 15:15-0400 Body weight 119.74 kg MD Shantel Steven Work Phone: [facility] 03-25-2024 15:15-0400 Diastolic blood pressure 87 mm[Hg] MD Shantel Steven Work Phone: [facility] 03-25-2024 15:15-0400 Heart rate 66 /min MD Shantel Steven Work Phone: [facility] 03-25-2024 15:15-0400 Systolic blood pressure 125 mm[Hg] MD Shantel Steven Work Phone: [facility] 02-15-2024 14:18-0400 Body height 165.1 cm [facility] 02-15-2024 14:18-0400 Body mass index (BMI) [Ratio] 38.6 kg/m2 [facility] 02-15-2024 14:18-0400 Body weight 105.23 kg [facility] 02-15-2024 14:18-0400 Diastolic blood pressure 66 mm[Hg] [facility] 02-15-2024 14:18-0400 Heart rate 55 /min [facility] 02-15-2024 14:18-0400 Systolic blood pressure 114 mm[Hg] [facility] 01-18-2024 10:23-0500 Body height 165.1 cm [facility] 01-18-2024 10:23-0500 Body mass index (BMI) [Ratio] 43.2 kg/m2 [facility] 01-18-2024 10:23-0500 Body weight 117.93 kg [facility] 01-18-2024 10:23-0500 Diastolic blood pressure 70 mm[Hg] [facility] 01-18-2024 10:23-0500 Heart rate 98 /min [facility] [facility]24 10:23-0500 SaO2% (BldA) [Mass fraction] 65 % [facility] 01-18-2024 10:23-0500 Systolic blood pressure 110 mm[Hg] [facility] 10-23-2023 16:00-0500 Body height 165.1 cm Jaleesa Kochs Other [employer] Other 10-23-2023 16:00-0500 Body mass index (BMI) [Ratio] 44.63 kg/m2 Jaleesa Kochs Other [employer] Other 10-23-2023 16:00-0500 Body temperature 96.8 [degF] Jaleesa Kochs Other [employer] Other 10-23-2023 16:00-0500 Body weight 121.66 kg Jaleesa Kochs Other [employer] Other 10-23-2023 16:00-0500 Diastolic blood pressure 60 mm[Hg] Jaleesa Kochs Other [employer] Other 10-23-2023 16:00-0500 Respiratory rate 18 /min Jaleesa Kochs Other [employer] Other 10-23-2023 16:00-0500 SaO2% (BldA) [Mass fraction] 99 % Jaleesa Kochs Other [employer] Other 10-23-2023 16:00-0500 Systolic blood pressure 124 mm[Hg] Azghassan Kcohs Other [employer] Other 10-18-2023 13:45-0500 Body height 165.1 cm Shantel Steven Other [employer] Other 10-18-2023 13:45-0500 Body mass index (BMI) [Ratio] 44.86 kg/m2 Shantel Steven Other [employer] Other 10-18-2023 13:45-0500 Body temperature 97.3 [degF] Shantel Steven Other [employer] Other 10-18-2023 13:45-0500 Body weight 122.29 kg Shantel Steven Other [employer] Other 10-18-2023 13:45-0500 Diastolic blood pressure 84 mm[Hg] Shantel Steven Other [employer] Other 10-18-2023 13:45-0500 SaO2% (BldA) [Mass fraction] 97 % Shantel Steven Other [employer] Other 10-18-2023 13:45-0500 Systolic blood pressure 132 mm[Hg] Shantel Steven Other [employer] Other 09-04-2023 14:00-0400 Body height 165.1 cm Shantel Steven Other [employer] Other 09-04-2023 14:00-0400 Body mass index (BMI) [Ratio] 43.06 kg/m2 Shantel Steven Other [employer] Other 09-04-2023 14:00-0400 Body weight 117.39 kg Shantel Steven Other [employer] Other 09-04-2023 14:00-0400 Diastolic blood pressure 69 mm[Hg] Shantel Steven Other [employer] Other 09-04-2023 14:00-0400 Systolic blood pressure 127 mm[Hg] Shantel Steven Other [employer] Other 07-17-2023 10:00-0400 Body height 165.1 cm Shantel Steven Other [employer] Other 07-17-2023 10:00-0400 Body mass index (BMI) [Ratio] 43.03 kg/m2 Shantel Steven Other [employer] Other 07-17-2023 10:00-0400 Body weight 117.3 kg Shantel Steven Other [employer] Other 07-17-2023 10:00-0400 Diastolic blood pressure 76 mm[Hg] Shantel Steven Other [employer] Other 07-17-2023 10:00-0400 Systolic blood pressure 164 mm[Hg] Shantel Steven Other [employer] Other 04-30-2023 14:30-0400 Body height 165.1 cm Shantel Steven Other [employer] Other 04-30-2023 14:30-0400 Body mass index (BMI) [Ratio] 43.43 kg/m2 Shantel Steven Other [employer] Other 04-30-2023 14:30-0400 Body weight 118.39 kg hSantel Steven Other [employer] Other 04-30-2023 14:30-0400 Diastolic blood pressure 75 mm[Hg] Shantel Steven Other [employer] Other 04-30-2023 14:30-0400 Systolic blood pressure 135 mm[Hg] Shantel Steven Other [employer] Other 03-09-2023 12:15-0400 Body height 165.1 cm Shantel Steven Other [employer] Other 03-09-2023 12:15-0400 Body mass index (BMI) [Ratio] 43.59 kg/m2 Shantel Steven Other [employer] Other 03-09-2023 12:15-0400 Body weight 118.84 kg Shantel Steven Other [employer] Other 03-09-2023 12:15-0400 Diastolic blood pressure 82 mm[Hg] Shantel Steven Other [employer] Other 03-09-2023 12:15-0400 SaO2% (BldA) [Mass fraction] 97 % Shantel Steven Other [employer] Other 03-09-2023 12:15-0400 Systolic blood pressure 130 mm[Hg] Shantel Steven Other [employer] Other 02-20-2023 10:00-0400 Body height 165.1 cm Shantel Steven Other [employer] Other 02-20-2023 10:00-0400 Body mass index (BMI) [Ratio] 41.93 kg/m2 Shantel Steven Other [employer] Other 02-20-2023 10:00-0400 Body weight 114.31 kg Shantel Steven Other [employer] Other 02-20-2023 10:00-0400 Diastolic blood pressure 84 mm[Hg] Shantel Steven Other [employer] Other 02-20-2023 10:00-0400 Systolic blood pressure 132 mm[Hg] Shantel Steven Other [employer] Other 08-04-2022 13:33-0400 Blood Pressure Location Bin NILL [facility] [place] 08-04-2022 13:33-0400 Diastolic blood pressure 88 mm[Hg] Bin N[facility] [place] 08-04-2022 13:33-0400 Heart rate 76 /min Bin N[facility] [place] 08-04-2022 13:33-0400 Respiratory rate 16 /min Bin NILL [facility] [place] 08-04-2022 13:33-0400 Systolic blood pressure 130 mm[Hg] Bin NILL [facility] [place] 08-25-2021 14:30-0400 Body height 165.1 cm [employer] Other [employer] Other 08-25-2021 14:30-0400 Body mass index (BMI) [Ratio] 43.26 kg/m2 [employer]bar [employer] Other [employer] Other 08-25-2021 14:30-0400 Body weight 117.94 kg Akbar [employer] Other [employer] Other Encounters Encounter Date Encounter Type Care Provider Facility Start: 08-17-2025 End: 08-17-2025 ambulatory Shantel Steven MD Work Phone: [facility] Work Phone: Start: 08-17-2025 End: 08-17-2025 Lizett Ross [facility] Work Phone: Start: 08-05-2025 End: 08-05-2025 ambulatory Shantel Steven MD Work Phone: [facility] Work Phone: Start: 08-05-2025 End: 08-05-2025 Shantel Steven MD -[facility] Work Phone: Start: 08-03-2025 Wandy Alvarez CMA -[facility] Work Phone: Start: 07-29-2025 End: 08-01-2025 Evaluation and management of inpatient Shantel Steven MD Work Phone: [facility] Work Phone: Start: 07-29-2025 End: 08-01-2025 Chasity Castro MD -[facility] Work Phone: Start: 07-24-2025 Wandy Alvarez CMA -[facility] Work Phone: Start: 07-23-2025 Monica Stewart MD -[facility] Work Phone: Start: 07-22-2025 Shantel Steven MD -[facility] Work Phone: Start: 07-20-2025 End: 07-20-2025 ambulatory Shantel Steven MD Work Phone: [facility] Work Phone: Start: 07-20-2025 End: 07-20-2025 Shantel Steven MD -[facility] Work Phone: Start: 07-01-2025 Wandy Alvarez CMA -[facility] Work Phone: Start: 07-01-2025 Wandy Alvarez CMA -[facility] Work Phone: Start: 06-30-2025 Monica Stewart MD -[facility] Work Phone: Start: 06-29-2025 Monica Stewart MD -[facility] Work Phone: Start: 06-28-2025 Jarred Cardona DO -[facility] Work Phone: Start: 06-22-2025 Wandy MARLOW G [facility] Work Phone: Start: 06-19-2025 Outside Provider -[facility] Work Phone: Start: 06-15-2025 End: 06-15-2025 ambulatory Shantel Steven MD Work Phone: [facility] Work Phone: Start: 06-15-2025 End: 06-15-2025 Shantel Steven MD -[facility] Work Phone: Start: 06-10-2025 Wandy Wells G [facility] Work Phone: Start: 06-10-2025 Osbaldo Marlow MD -[facility] Work Phone: Start: 06-09-2025 Osbaldo Marlow MD -[facility] Work Phone: Start: 06-08-2025 Jarred Cardona -[facility] Work Phone: Start: 06-04-2025 End: 06-04-2025 ambulatory Shantel Steven MD Work Phone: [facility] Work Phone: Start: 06-04-2025 End: 06-04-2025 Shantel Steven MD -[facility] Work Phone: Start: 06-02-2025 End: 06-02-2025 ambulatory Shantel Steven MD Work Phone: [facility] Work Phone: Start: 06-02-2025 End: 06-02-2025 Shantel Steven MD -[facility] Work Phone: Start: 05-31-2025 Monica Stewart MD -[facility] Work Phone: Start: 05-30-2025 Monica Stewart MD -[facility] Work Phone: Start: 05-29-2025 Monica Stewart MD -[facility] Work Phone: Start: 05-28-2025 Analisa Bryant MD [facility] Work Phone: Start: 05-21-2025 End: 05-21-2025 ambulatory Shantel Steven MD Work Phone: [facility] Work Phone: Start: 05-21-2025 End: 05-21-2025 Patient encounter procedure Shantel Steven MD -[facility] Work Phone: Start: 05-21-2025 End: 05-21-2025 Shantel Steven MD -[facility] Work Phone: Start: 05-13-2025 Non-patient / Non-visit Wandy Bowen [facility] -[facility] Work Phone: Start: 05-13-2025 Wandy Alvarez [facility] -[facility] Work Phone: Start: 05-11-2025 Non-patient / Non-visit Cheng Ross [facility] Work Phone: Start: 05-11-2025 Cheng Ross [facility] Work Phone: Start: 04-22-2025 End: 04-22-2025 ambulatory [facility] Start: 04-21-2025 End: 04-21-2025 ambulatory Shantel Steven MD Work Phone: [facility] Work Phone: Start: 04-21-2025 End: 04-21-2025 Patient encounter procedure Cheng Ross [facility] Work Phone: Start: 04-21-2025 End: 04-21-2025 Shantel Steven MD Work Phone: [facility] Work Phone: Start: 04-16-2025 End: 04-16-2025 ambulatory Shantel Steven MD Work Phone: [facility] Work Phone: Start: 04-16-2025 End: 04-16-2025 Patient encounter procedure Shantel Steven MD -[facility] Work Phone: Start: 04-16-2025 End: 04-16-2025 Shantel Steven MD Work Phone: [facility] Physician [facility] Work Phone: Start: 03-24-2025 End: 03-24-2025 ambulatory Shantel Steven MD Work Phone: [facility] Work Phone: Start: 03-24-2025 End: 03-24-2025 Patient encounter procedure Shantel Steven MD -[facility] Work Phone: Start: 03-24-2025 End: 03-24-2025 Shantel Steven MD Work Phone: [facility] Physician [facility] Work Phone: Start: 03-13-2025 Non-patient / Non-visit Wandy Bowen CMA -[facility] Work Phone: Start: 03-13-2025 Shantel Cardona Work Phone: [facility] Physician [facility] Work Phone: Start: 03-12-2025 End: 03-12-2025 Shantel Steven MD Work Phone: [facility] Work Phone: Start: 03-12-2025 End: 03-12-2025 Emergency department patient visit Shantel Steven MD Work Phone: [facility] Work Phone: Start: 03-10-2025 End: 03-10-2025 ambulatory [facility] Work Phone: Start: 03-10-2025 End: 03-10-2025 Patient encounter procedure [facility] Physician [facility] G[facility] Work Phone: Start: 03-10-2025 End: 03-10-2025 Shantel Steven MD Work Phone: [facility] Work Phone: Start: 03-02-2025 End: 03-02-2025 ambulatory [facility] Start: 03-02-2025 Non-patient / Non-visit [facility] Work Phone: Start: 03-02-2025 Shantel Cardona Work Phone: [facility] Physician [facility] Work Phone: Start: 02-19-2025 End: 02-19-2025 ambulatory [facility] Work Phone: Start: 02-19-2025 End: 02-19-2025 Patient encounter procedure [facility]ician [facility] Work Phone: Start: 02-19-2025 End: 02-19-2025 Shantel Steven MD Work Phone: [facility] Work Phone: Start: 02-09-2025 End: 02-09-2025 ambulatory [facility] Work Phone: Start: 02-09-2025 End: 02-09-2025 Patient encounter procedure [facility] Work Phone: Start: 02-09-2025 End: 02-09-2025 Shantel Steven MD Work Phone: [facility] Work Phone: Start: 01-28-2025 End: 01-28-2025 ambulatory [facility] Start: 01-28-2025 Non-patient / Non-visit [facility] Physician [facility] Work Phone: Start: 01-28-2025 Shantel Cardona Work Phone: [facility] Work Phone: Start: 01-27-2025 Non-patient / Non-visit [facility] Work Phone: Start: 01-27-2025 Shantel Cardona Work Phone: [facility] Work Phone: Start: 01-26-2025 Non-patient / Non-visit [facility] Work Phone: Start: 01-26-2025 Shantel Cardona Work Phone: [facility] Work Phone: Start: 01-25-2025 Non-patient / Non-visit [facility] Work Phone: Start: 01-25-2025 Shantel Cardona Work Phone: [facility] Work Phone: Start: 01-21-2025 End: 01-21-2025 ambulatory Shantel Steven MD Work Phone: [facility] Work Phone: Start: 01-21-2025 End: 01-21-2025 Patient encounter procedure Shantel Steven MD Work Phone: [facility] Physician [facility] Work Phone: Start: 01-21-2025 End: 01-21-2025 Shantel Steven MD Work Phone: [facility] Work Phone: Start: 01-14-2025 End: 01-14-2025 ambulatory Shantel Steven MD Work Phone: [facility] Work Phone: Start: 01-14-2025 End: 01-14-2025 Patient encounter procedure Shantel Steven MD Work Phone: [facility] Work Phone: Start: 01-14-2025 End: 01-14-2025 Shantel Steven MD Work Phone: [facility] Work Phone: Start: 01-07-2025 End: 01-07-2025 Telephone encounter Christel Chacon MD Work Phone: [facility] Comment on above: referral to Dr Estrada baer Start: 01-06-2025 End: 01-06-2025 Patient encounter procedure Shantel Steven MD Work Phone: [facility] Work Phone: Start: 01-06-2025 End: 01-06-2025 Shantel Steven MD Work Phone: [facility] Work Phone: Start: 01-06-2025 End: 01-06-2025 Telephone encounter Christel Chacon MD Work Phone: [facility] Comment on above: sleep study appt Start: 12-26-2024 End: 12-26-2024 ambulatory Jorge Luis Zavala DO Work Phone: [facility] Work Phone: Start: 12-26-2024 End: 12-26-2024 Patient encounter procedure Jorge Luis Zavala DO Work Phone: [facility] Work Phone: Start: 12-26-2024 End: 12-26-2024 Shantel Steven MD Work Phone: [facility] Work Phone: Start: 12-18-2024 End: 12-18-2024 ambulatory FRANCHESCA E STU Facility:[facility] Start: 12-18-2024 End: 12-18-2024 Patient encounter procedure FRANCHESCA Jenny PERAZA [facility] Start: 12-09-2024 End: 12-09-2024 Patient encounter procedure Jorge Luis Camargopa DO Work Phone: [facility] Work Phone: Start: 12-08-2024 Non-patient / Non-visit Oni miranda Tupa DO Work Phone: [facility] Work Phone: Start: 12-08-2024 End: 12-08-2024 ambulatory FRANCHESCA Alvarado STU Facility:[facility] Start: 12-08-2024 End: 12-08-2024 Patient encounter procedure FRANCHESCAJAMES PERAZA [facility] Start: 12-04-2024 Non-patient / Non-visit Onipamela Camargopa DO Work Phone: [facility] Work Phone: Start: 12-04-2024 Non-patient / Non-visit Oni miranda Tupa DO Work Phone: [facility] Work Phone: Start: 12-02-2024 End: 12-02-2024 ambulatory [facility] Start: 11-13-2024 End: 11-13-2024 ambulatory FRANCHESCA E STU Facility:[facility] Start: 11-13-2024 End: 11-13-2024 Patient encounter procedure FRANCHESCA CUELLARRY [facility] Start: 11-11-2024 End: 11-11-2024 Patient encounter procedure Jorge Luis Tupa DO Work Phone: [facility] Work Phone: Start: 11-10-2024 Non-patient / Non-visit Oni k Tupa DO Work Phone: [facility] Physician [facility] Work Phone: Start: 11-06-2024 ambulatory FRANCHESCA PERAZA Facili ty:[facility] Start: 11-04-2024 End: 11-04-2024 ambulatory FRANCHESCA E STU Facility: [facility] Start: 11-04-2024 End: 11-04-2024 Patient encounter procedure FRANCHESCA CUELLARRY [facility] Start: 11-03-2024 End: 11-03-2024 Patient encounter procedure Jorge Luis Tupa DO Work Phone: [facility] Physician [facility] Work Phone: Start: 10-31-2024 ambulatory [facility] Start: 10-25-2024 End: 10-25-2024 Emergency department patient visit Jorg Eluis Tupa DO Work Phone: [facility]-Emergency Room Work Phone: Start: 10-24-2024 Non-patient / Non-visit Oni k Tupa DO Work Phone: [facility] Physician [facility] Work Phone: Start: 10-22-2024 End: 10-22-2024 Emergency department patient visit Jogre Luis Tupa DO Work Phone: [facility]-Emergency [facility] Work Phone: Start: 10-21-2024 Non-patient / Non-visit Oni k Tupa DO Work Phone: [facility] Physician [facility] Work Phone: Start: 10-17-2024 Non-patient / Non-visit Oni Zavala DO Work Phone: [facility] Work Phone: Start: 10-17-2024 Non-patient / Non-visit Oni Zavala DO Work Phone: [facility] Physician [facility] Work Phone: Start: 10-16-2024 Non-patient / Non-visit Oni Zavala DO Work Phone: [facility] Work Phone: Start: 10-16-2024 End: 10-20-2024 Evaluation and management of inpatient Jorge Luis Zavala DO Work Phone: [facility] [place] [facility] Work Phone: Start: 10-08-2024 End: 10-08-2024 ambulatory [facility] Start: 10-01-2024 End: 10-01-2024 Bamdaniel flowsheet [...] / Non-visit Oni Zavala DO Work Phone: [facility] Work Phone: Start: 09-26-2024 End: 09-30-2024 Telephone encounter Christel Chacon MD Work Phone: [facility] Start: 09-03-2024 ambulatory [facility] Start: 08-20-2024 End: 08-20-2024 ambulatory [facility] Start: 08-07-2024 End: 08-07-2024 ambulatory MD Shantel Steven Work Phone: [facility] Work Phone: Start: 08-07-2024 End: 08-07-2024 Patient encounter procedure MD Shantel Steven Work Phone: [facility] Work Phone: Start: 07-30-2024 Non-patient / Non-visit MD Alessia Steven Work Phone: [facility] Work Phone: Start: 07-25-2024 Non-patient / Non-visit MD Alessia Steven Work Phone: [facility] Work Phone: Start: 07-24-2024 Non-patient / Non-visit MD Alessia Steven Work Phone: [facility] Work Phone: Start: 07-22-2024 [...] encounter procedure MD Shantel Steven Work Phone: [facility] Work Phone: Start: 07-17-2024 End: 07-17-2024 ambulatory MD Shantel Steven Work Phone: [facility] Work Phone: Start: 07-17-2024 End: 07-17-2024 Departed Referred MD Shantel Steven Work Phone: [facility] [place] Work Phone: Start: 07-17-2024 End: 07-17-2024 MD Shantel Steven Work Phone: [facility] Work Phone: Start: 07-16-2024 End: 07-16-2024 ambulatory MD Shantel Steven Work Phone: [facility] Work Phone: Start: 07-16-2024 End: 07-16-2024 Patient encounter procedure MD Shantel Steven Work Phone: [facility] Work Phone: Start: 07-16-2024 End: 07-16-2024 MD Shantel Steven Work Phone: [facility] Work Phone: Start: 07-15-2024 End: 07-15-2024 Non-patient / Non-visit MD Shantel Steven Work Phone: [facility] Work Phone: Start: 07-15-2024 Non-patient / Non-visit MD Alessia Steven Work Phone: [facility] Work Phone: Start: 07-15-2024 MD Shantel painting Work Phone: [facility] Work Phone: Start: 07-14-2024 Non-patient / Non-visit MD Alessia Steven Work Phone: [facility] Work Phone: Start: 07-14-2024 MD Shantel painting Work Phone: [facility] Work Phone: Start: 07-10-2024 End: 07-10-2024 Bamboo flowsheet Lizett Mariemor PRESS TECHNICIAN Work Phone: [employer] Start: 07-10-2024 End: 07-10-2024 Bamboo flowsheet Lizett Mariemor PRESS TECHNICIAN Work Phone: [employer] [facility] Start: 07-10-2024 End: 07-10-2024 Office outpatient visit 25 minutes Lizett Sanar PRESS TECHNICIAN Work Phone: [employer] Comment on above: Essential tremor (Pr imary Dx); Diabetic polyneuropathy associated with type 2 diabetes mellitus ([facility]/HCC); Balance disorder; Sensory ataxia; Debility; Weakness; Paresthesias Start: 07-10-2024 End: 07-10-2024 ambulatory LIZETT MARIEMOR Not Available Start: 07-07-2024 End: 07-07-2024 ambulatory MD Shantel Steven Work Phone: [facility] Work Phone: Start: 07-07-2024 End: 07-07-2024 Patient encounter procedure MD Shantel Steven Work Phone: [facility] Work Phone: Start: 07-07-2024 End: 07-07-2024 MD Shantel Steven Work Phone: [facility] Physician [facility] Work Phone: Start: 06-25-2024 ambulatory MD Shantel gray Work Phone: [facility] Work Phone: Start: 06-25-2024 Non-patient / Non-visit MD Alessia Steven Work Phone: [facility] Work Phone: Start: 06-25-2024 MD Shantel painting Work Phone: [facility] Work Phone: Start: 06-24-2024 Non-patient / Non-visit MD Alessia Steven Work Phone: [facility] Work Phone: Start: 06-24-2024 MD Shantel painting Work Phone: [facility] Work Phone: Start: 06-16-2024 End: 06-16-2024 ambulatory MD Shantel Steven Work Phone: [facility] Work Phone: Start: 06-16-2024 End: 06-16-2024 Patient encounter procedure MD Shantel Steven Work Phone: [facility] Work Phone: Start: 06-16-2024 End: 06-16-2024 MD Shantel Steven Work Phone: [facility] Phys[facility] Work Phone: Start: 06-10-2024 Non-patient / Non-visit MD Alessia Steven Work Phone: [facility] Work Phone: Start: 06-10-2024 MD Shantel painting Work Phone: [facility] Work Phone: Start: 06-09-2024 Non-patient / Non-visit MD Alessia Steven Work Phone: [facility] Work Phone: Start: 06-09-2024 MD Shantel painting Work Phone: [facility] Work Phone: Start: 06-05-2024 End: 06-05-2024 ambulatory MD Shantel Steven Work Phone: [facility] Work Phone: Start: 06-05-2024 End: 06-05-2024 Patient encounter procedure MD Shantel Steven Work Phone: [facility] Work Phone: Start: 06-05-2024 End: 06-05-2024 MD Shantel Steven Work Phone: [facility] Work Phone: Start: 06-01-2024 Non-patient / Non-visit MD Alessia Steven Work Phone: [facility] Work Phone: Start: 06-01-2024 MD Shantel painting Work Phone: [facility] Work Phone: Start: 05-26-2024 Non-patient / Non-visit MD Alessia Steven Work Phone: [facility] Work Phone: Start: 05-26-2024 MD Shantel painting Work Phone: [facility] Work Phone: Start: 05-22-2024 End: 05-22-2024 Emergency department patient visit MD Shantel Steven Work Phone: [facility]-Emergency Room Work Phone: Start: 05-22-2024 End: 05-22-2024 MD Shantel Steven Work Phone: [facility] Work Phone: Start: 05-20-2024 Non-patient / Non-visit MD Alessia Steven Work Phone: [facility] Physician [facility] Work Phone: Start: 05-20-2024 MD Shantel painting Work Phone: [facility] Work Phone: Start: 05-19-2024 End: 05-19-2024 ambulatory MD Shantel Steven Work Phone: [facility] Work Phone: Start: 05-19-2024 End: 05-19-2024 Patient encounter procedure MD Shantel Steven Work Phone: [facility] Physician [facility] Work Phone: Start: 05-19-2024 End: 05-19-2024 MD Shantel Steven Work Phone: [facility] Physician [facility] Work Phone: Start: 05-07-2024 End: 05-07-2024 ambulatory MD Shantel Steven Work Phone: [facility] Work Phone: Start: 05-07-2024 End: 05-07-2024 Patient encounter procedure MD Shantel Steven Work Phone: [facility] Work Phone: Start: 05-07-2024 End: 05-07-2024 MD Shantel Steven Work Phone: [facility] Physician [facility] Work Phone: Start: 05-06-2024 Non-patient / Non-visit MD Alessia Steven Work Phone: [facility] Work Phone: Start: 05-06-2024 MD Shantel painting Work Phone: [facility] Work Phone: Start: 05-05-2024 Non-patient / Non-visit MD Alessia Steven Work Phone: [facility] Work Phone: Start: 05-05-2024 MD Shantel painting Work Phone: [facility] Work Phone: Start: 05-04-2024 End: 05-06-2024 Non-patient / Non-visit MD Shantel Steven Work Phone: [facility] Work Phone: Start: 05-04-2024 End: 05-06-2024 MD Shantel Steven Work Phone: [facility] Work Phone: Start: 05-04-2024 Non-patient / Non-visit MD Alessia Steven Work Phone: [facility] Work Phone: Start: 05-04-2024 MD Shantel painting Work Phone: [facility] Work Phone: Start: 05-02-2024 Non-patient / Non-visit MD Alessia Steven Work Phone: [facility] Work Phone: Start: 05-02-2024 MD Shantel painting Work Phone: [facility] Work Phone: Start: 05-01-2024 Non-patient / Non-visit MD Alessia Steven Work Phone: [facility] Work Phone: Start: 05-01-2024 MD Shantel painting Work Phone: [facility] Work Phone: Start: 04-30-2024 Non-patient / Non-visit MD Alessia Steven Work Phone: [facility] Work Phone: Start: 04-30-2024 MD Shantel painting Work Phone: [facility] Work Phone: Start: 04-30-2024 Non-patient / Non-visit MD Alessia Steven Work Phone: [facility] Work Phone: Start: 04-30-2024 MD Shantel painting Work Phone: [facility] Work Phone: Start: 04-29-2024 End: 04-29-2024 Patient encounter procedure MD Shantel Steven Work Phone: [facility] Physician [facility] Work Phone: Start: 04-29-2024 End: 04-29-2024 MD Shantel Steven Work Phone: [facility] Physician [facility] Work Phone: Start: 04-03-2024 End: 04-03-2024 ambulatory MD Shantel Steven Work Phone: [facility] Work Phone: Start: 04-03-2024 End: 04-03-2024 Patient encounter procedure MD Shantel Steven Work Phone: [facility] Physician [facility] Work Phone: Start: 04-03-2024 End: 04-03-2024 MD Shantel Steven Work Phone: [facility] Work Phone: Start: 04-01-2024 Non-patient / Non-visit MD Alessia Steven Work Phone: [facility] Work Phone: Start: 04-01-2024 MD Shantel painting Work Phone: [facility] Work Phone: Start: 03-31-2024 Non-patient / Non-visit MD Alessia Steven Work Phone: [facility] Work Phone: Start: 03-31-2024 MD Shantel painting Work Phone: [facility] Work Phone: Start: 03-28-2024 Non-patient / Non-visit MD Alessia Steven Work Phone: [facility] Work Phone: Start: 03-28-2024 MD Shantel painting Work Phone: [facility] Work Phone: Start: 03-27-2024 Non-patient / Non-visit MD Alessia Steven Work Phone: [facility] Work Phone: Start: 03-27-2024 MD Shantel painting Work Phone: [facility] Work Phone: Start: 03-26-2024 Non-patient / Non-visit MD Alessia Steven Work Phone: [facility] Work Phone: Start: 03-26-2024 MD Shantel painting Work Phone: [facility] Work Phone: Start: 03-25-2024 End: 03-25-2024 Patient encounter procedure MD Shantel Steven Work Phone: [facility] Physician [facility] Work Phone: Start: 03-25-2024 End: 03-25-2024 MD Shantel Steven Work Phone: [facility] Physician [facility] Work Phone: Start: 03-13-2024 End: 03-13-2024 ambulatory MD Shantel Steven Work Phone: [facility] Work Phone: Start: 03-13-2024 End: 03-13-2024 Patient encounter procedure MD Shantel Steven Work Phone: [facility] [address] Work Phone: Start: 02-19-2024 ambulatory [facility] Facility :[facility] Start: 02-15-2024 End: 02-15-2024 ambulatory [facility] Work Phone: Start: 02-15-2024 End: 02-15-2024 Patient encounter procedure [facility] Physician [facility] Work Phone: Start: 01-29-2024 Non-patient / Non-visit [facility] Physician [facility] Work Phone: Start: 01-24-2024 Non-patient / Non-visit [facility] Physician [facility] Work Phone: Start: 01-22-2024 Non-patient / Non-visit [facility] Physician [facility] Work Phone: Start: 01-18-2024 End: 01-18-2024 Patient encounter procedure [facility] Physician [facility] Work Phone: Start: 01-15-2024 Non-patient / Non-visit [facility] Physician [facility] Work Phone: Start: 01-04-2024 Non-patient / Non-visit [facility] Work Phone: Start: 12-18-2023 End: 12-18-2023 ambulatory Shantel Tenisha Other [employer] Other Start: 12-18-2023 Telephone encounter Shantel Tenisha [facility] Start: 11-19-2023 End: 11-19-2023 ambulatory Shantel Tenisha Other [employer] Other Start: 11-19-2023 Telephone encounter Shantel Tenisha [facility] Start: 10-23-2023 End: 10-23-2023 ambulatory Néstorghassan Nhungloves Other [employer] Other Start: 10-23-2023 Office outpatient ne w 30 minutes Azghassan Nhungloves [facility] [place] Start: 10-22-2023 End: 10-22-2023 ambulatory Shantel Tenisha Other [employer] Other Start: 10-22-2023 Telephone encounter Shantel Steven [facility] Start: 10-18-2023 End: 10-18-2023 ambulatory Shantel Tenisha Other [employer] Other Start: 10-18-2023 Office outpatient vi sit 15 minutes Shantel Tenisha [facility] Start: 09-07-2023 End: 09-07-2023 ambulatory Shantel Tenisha Other [employer] Other Start: 09-07-2023 Telephone encounter Shantel Steven [facility] Start: 09-04-2023 End: 09-04-2023 ambulatory Shantel Steven Other [employer] Other Start: 09-04-2023 Office outpatient vi sit 25 minutes Shantel Tenisha [facility] Start: 08-23-2023 End: 08-23-2023 ambulatory Shantel Tenisha Other [employer] Other Start: 08-23-2023 Telephone encounter Shantel Steven [facility] Start: 07-23-2023 End: 07-23-2023 ambulatory Shantel Steven Other [employer] Other Start: 07-23-2023 Telephone encounter Shantel Steven [facility] Start: 07-17-2023 End: 07-17-2023 ambulatory Shantel Tenisha Other [employer] Other Start: 07-17-2023 Office outpatient vi sit 25 minutes Shantel Tenisha [facility] Start: 05-30-2023 End: 05-30-2023 ambulatory Shantel Tenisha Other [employer] Other Start: 05-30-2023 Telephone encounter Shantel Steven [facility] Start: 05-22-2023 End: 05-22-2023 ambulatory Shantel Steven Other [employer] Other Start: 05-22-2023 Telephone encounter Shantel Steven [facility] Start: 05-16-2023 End: 05-16-2023 ambulatory Shantel Steven Other [employer] Other Start: 05-16-2023 Telephone encounter Shantel Steven [facility] Start: 05-07-2023 End: 05-07-2023 ambulatory Shantel Steven Other [employer] Other Start: 05-07-2023 Telephone encounter Shantel Steven [facility] Start: 04-30-2023 End: 04-30-2023 ambulatory Shantel Steven Other [employer] Other Start: 04-30-2023 Office outpatient vi sit 25 minutes Shantel Tenisha [facility] Start: 04-25-2023 End: 04-25-2023 ambulatory Shantel Tenisha Other [employer] Other Start: 04-25-2023 Telephone encounter Shantel Steven [facility] Start: 04-12-2023 End: 04-12-2023 ambulatory Shantel Steven Other [employer] Other Start: 04-12-2023 Telephone encounter Shantel Steven [facility] Start: 03-09-2023 End: 03-09-2023 ambulatory Shantel Steven Other [employer] Other Start: 03-09-2023 Office outpatient vi sit 15 minutes Shantel Steven [facility] Start: 03-07-2023 End: 03-07-2023 ambulatory Shantel Steven Other [employer] Other Start: 03-07-2023 Telephone encounter Shantel Steven [facility] Start: 03-06-2023 End: 03-06-[address] SHANTEL STEVEN Facility:[facility] Start: 03-05-2023 End: 03-05-2023 ambulatory Shantel Steven Other [employer] Other Start: 03-05-2023 Telephone encounter Shantel Steven [facility] Start: 02-26-2023 End: 02-26-2023 ambulatory Shantel Steven Other [employer] Other Start: 02-26-2023 Telephone encounter Shantel Steven [facility] Start: 02-24-2023 End: 02-24-[address] SHANTEL STEVEN Facility:[facility] Start: 02-23-2023 End: 02-23-2023 ambulatory Shantel Steven Other [employer] Other Start: 02-23-2023 Telephone encounter Shantel Steven [facility] Start: 02-20-2023 End: 02-20-2023 ambulatory Shantel Steven Other [employer] Other Start: 02-20-2023 Transitional care luz cabral srvc 14 day discharge Shantel Steven [facility] Start: 02-16-2023 End: 02-16-2023 ambulatory Shantel Steven Other [employer] Other Start: 02-16-2023 Telephone encounter Shantel Steven [facility] Start: 02-13-2023 End: 02-14-[address] SHANTEL STEVEN Facility:[facility] Start: 02-02-2023 End: 02-02-2023 ambulatory Shantel Steven Other [employer] Other Start: 02-02-2023 Telephone encounter Shantel Tenisha [facility] Start: 01-16-2023 End: 01-17-[address] DOCTOR CARMONA Facility:[facility] Start: 01-05-2023 End: 01-05-2023 ambulatory BIN ROJAS Facility:[facility] Start: 01-01-2023 End: 01-02-2023 ambulatory ANALISA BRYANT Facility:[facility] Start: 11-29-2022 End: 11-29-2022 ambulatory Shantel Steven Other [employer] Other Start: 11-29-2022 Telephone encounter Shantel Tenisha [facility] Start: 11-27-2022 End: 11-27-2022 ambulatory Shantel Steven Other [employer] Other Start: 11-27-2022 Telephone encounter Shantel Tenisha [facility] Start: 11-24-2022 End: 11-24-2022 ambulatory Shantel Steven Other [employer] Other Start: 11-24-2022 Telephone encounter Shantel Tenisha [facility] Start: 11-06-2022 ambulatory YAMEL PANDYA Facility :[facility] Start: 09-15-2022 End: 09-16-[address] SHANTEL STEVEN Facility:[facility] Start: 08-04-2022 End: 08-04-2022 Patient encounter procedure Bin SORENSON General Surgery [facility] Start: 05-02-2022 End: 05-02-[address] SHANTEL STEVEN Facility: Start: 08-25-2021 Office outpatient ne w 45 minutes Akbar Whitfield II [facility] Start: 08-09-2017 End: 08-12-2017 Ambulatory PROVIDER [...] Activity Detail Author Start: 08-05-2025 Patient referral [facility] Work Phone: Start: 08-01-2025 End: 08-01-2025 [facility] Start: 07-30-2025 [facility] Start: 07-29-2025 Physical therapy procedure [facility] Start: 07-29-2025 Referral to occupati onal therapist [facility] Start: 07-29-2025 [facility] Start: 07-29-2025 Hospital admission [facility] Start: 06-08-2025 [facility] Start: 06-02-2025 [facility] Start: 06-02-2025 Urine culture [facility] Start: 03-24-2025 Patient referral [facility] Work Phone: Start: 12-10-2024 Patient referral [facility] Work Phone: Start: 10-20-2024 [facility] Start: 10-16-2024 Consultation [facility] Start: 10-16-2024 Hospital admission [facility] Start: 10-16-2024 Referral to advertising analyst [facility] Start: 10-16-2024 Drainage of Bladder with Drainage Device, Via Natural or Artificial Opening Drainage of Bladder with Drainage Device, Via Natural or Artificial Opening [facility] Start: 10-16-2024 Performance of Cardi ac Pacing, Continuous Performance of Cardiac Pacing, Continuous [facility] Start: 10-01-2024 End: 10-01-2024 Patient encounter procedure [facility] Comment on above: Arrived Start: 09-30-2024 End: 09-30-2024 Patient encounter procedure 09/30/2024 1:00 PM EST Office Visit [facility] [place] [address] [place] [id number] Wanda Patel DO [address] [place], [place] [id number] [facility] [address] [facility] Start: 09-04-2024 End: 09-04-2024 Patient encounter procedure 09/04/2024 1:20 PM EDT Office Visit [facility] [address] [place] [address] Lizett Jacinto NP [address] [place], [place] [facility] [address] Start: 07-22-2024 End: 07-22-2024 Patient encounter procedure 07/22/2024 1:10 PM EDT Office Visit [facility] [address] [facility] [address] [place] [id number] Christel Chacon MD [address] [facility] [address] [place], [place] [id number] Arrived [facility] Comment on above: Arrived Start: 07-17-2024 Bacteria identified in Urine by Culture [facility] Start: 07-17-2024 [facility] Start: 07-15-2024 End: 07-15-2024 Patient encounter procedure 07/15/2024 1:10 PM EDT Office Visit [facility] [address] [facility] [address] [place] [address] Christel Chacon MD [address] [facility] [address] [place] [address] [facility] Start: 2024 Influenza vaccination Influenza Vacc ine (#1) [facility] Start: 07-10-2024 End: 07-10-2024 Patient encounter procedure 07/10/2024 1:40 PM EDT Office Visit [facility] [address] [place] [address] Lizett Jacinto NP [address] [place], [place] Arrived [facility] [address] [facility] Comment on above: Arrived Start: 06-25-2024 Patient referral [facility] Work Phone: Start: 06-16-2024 Patient referral [facility] Work Phone: Start: 05-07-2024 Patient referral [facility] Work Phone: Start: 05-04-2024 Blood Culture 1 Blood Culture 1 [facility] Start: 02-15-2024 Patient referral [facility] Work Phone: Basophils [#/volume] in Blood by Automated count [facility] Basophils/100 leukoc ytes in Blood by Automated count [facility] Comprehensive metabo lic 1999 panel - Serum or Plasma [facility] Comprehensive metabo lic 1999 panel - Serum or Plasma [facility] CT Abdomen and Pelvi s WO contrast [facility] Eosinophils/100 leukocytes in Blood by Automated count [facility] Erythrocyte distribu tion width [Ratio] by Automated count [facility] Erythrocytes [#/volu me] in Blood [facility] Hematocrit [Volume Fraction] of Blood [facility] Hemoglobin [Mass/vol ume] in Blood [facility] Leukocytes [#/volume ] corrected for nucleated erythrocytes in Blood by Automated coun [facility] Leukocytes [#/volume ] in Blood [facility] Lymphocytes [#/volum e] in Blood by Automated count [facility] Lymphocytes/100 leukocytes in Blood by Automated count [facility] MCH [Entitic mass] b y Automated count [facility] MCHC [Mass/volume] b y Automated count [facility] MCV [Entitic volume] by Automated count [facility] Microalbumin [Mass/volume] in Urine [facility] Monocytes [#/volume] in Blood by Automated count [facility] Monocytes/100 leukoc ytes in Blood by Automated count [facility] Neutrophils [#/volum e] in Blood by Automated count [facility] Neutrophils/100 leukocytes in Blood by Automated count [facility] Nucleated erythrocyt es [Presence] in Blood by Automated count [facility] Patient Education [facility] Work Phone: Patient referral [facility] Work Phone: Platelet mean volume [Entitic volume] in Blood by Automated count [facility] Platelets [#/volume] in Blood [facility] Renal function 1999 panel - Serum or Plasma [facility] Renal function 1999 panel - Serum or Plasma [facility] Renal function 1999 panel - Serum or Plasma [facility] US Axilla [facility] Immunizations Immunization Date Immunization Notes Care Provider Fa aga 01-18-2024 Pneumococcal Conjugate Vaccine, 20 valent [facility] 09-04-2023 influenza, high dose seasonal, preservative-free Shantel Steven Other [employer] Other 09-04-2023 influenza virus vaccine, unspecified formulation [facility] 02-04-2021 COVID-19 mRNA, Comirnaty (Pfizer) [facility] 01-21-2021 COVID-19 mRNA, Comirnaty (Pfizer) [facility] 10-09-2018 influenza virus vaccine, split virus (incl. purified surface antigen) Shantel Steven Other [employer] Other 10-09-2018 influenza virus vaccine, unspecified formulation [facility] NEGATED: Highlighted row has not occurred!10-17-2024 influenza, high dose seasonal, preservative-free Jorge Luis Zavala DO Work Phone: [facility] NEGATED: Highlighted row has not occurred!08-21-2019 influenza virus vaccine, split virus (incl. purified surface antigen) Shantel Steven Other [employer] Other Payers Date Payer Category Payer Medicare [id number] 2024 Self-pay [id number] 2023 Medicare [employer]NA MEDICARE ADVANTAGE HU[employer]NA MEDICARE [id number] 2023-Present [address] [place] [id number] 2023 Medicare (Managed Care) HU[employer]NA M EDICARE ADVANTAGE [id number] 1959 Medicare [id number] 1959 Self-pay [id number] 1945 Unknown [id number] 2.16.840.1.974374.3.579. 2.593 1946 Unknown [id number] 2.16.840.1.746369.3.579. 2.593 1946 Unknown [id number] 2.16.840.1.735524.3.579. 2.593 1946 Unknown [id number] 2.16.840.1.738211.3.579. 2.593 1946 Unknown [id number] 2.16.840.1.514295.3.579. 2.593 1946 Unknown [id number] 2.16.840.1.615026.3.579. 2.593 1946 Unknown [id number] 2.16.840.1.179173.3.579. 2.593 1946 Unknown [id number] 2.16.840.1.823145.3.579. 2.593 1946 Unknown [id number] 2.16.840.1.360771.3.579. 2.593 1946 Unknown [id number] 2.16.840.1.864924.3.579. 2.1259 1946 Unknown [id number] 2.16.840.1.560025.3.579. 2.1259 1946 Unknown [id number] 2.16.840.1.351609.3.579. 2.1259 1946 Unknown [id number] 2.16.840.1.117673.3.579. 2.727 1946 Unknown [id number] 2.16.840.1.471468.3.579. 2.727 1946 Unknown [id number] 2.16.840.1.822183.3.579. 2.727 1946 Unknown [id number] 2.16.840.1.923732.3.579. 2.727 1946 Unknown [id number] 2.16.840.1.450666.3.579. 2.727 Unknown Unknown [id number] 2.16.840.1.748409.3.579. 2.531 Unknown [id number] 2.16.840.1.515879.3.579. 2.531 Unknown [id number] 2.16.840.1.001833.3.579. 2.531 Unknown [id number] 2.16.840.1.737218.3.579. 2.531 Unknown [id number] 2.16.840.1.018971.3.579. 2.531 Unknown [id number] 2.16.840.1.663805.3.579. 2.531 Unknown [id number] 2.16.840.1.396320.3.579. 2.531 Social History Date Type Detail Facility Start: 07-22-2024 End: 10-01-2024 Sex Assigned At [facility] [employer] Other Start: 08-04-2022 End: 07-29-2025 Tobacco smoking status Ex-smoker (finding) [facility] [place] Tobacco smoking status Never [facility] [place] Start: 1945 Sex Assigned At Female F [facility] History of tobacco use Current [...] Start: 12-26-2024 End: 04-21-2025 Sex Female (finding) [facility] Start: 03-12-2025 End: 06-10-2025 Tobacco smoking status NHIS Never smoked tobacco (finding) [facility] Start: 07-30-2025 [facility] Work Phone: Medical Equipment Procedure Code Equipment Code Equipment Origin al Text Equipment Identifier Dates Blood Sugar Diagnostic (True Metrix Glucose Test Strip) strip Start: 03-31-2024 Pen Needle, Diab etic (Comfort Ez Pen [place]) 33 gauge x 5/32 needle Start: 03-25-2024 Blood Sugar Diagnostic (True Metrix Glucose Test Strip) strip Start: 03-31-2024 End: 03-31-2024 Blood Sugar Diagnostic (True Metrix Glucose Test Strip) strip Start: 03-31-2024 Pen Needle, Diab etic (Comfort Ez Pen [place]) 33 gauge x 5/32 needle Start: 03-25-2024 Blood Sugar Diagnostic (True Metrix Glucose Test Strip) strip Start: 03-31-2024 End: 03-31-2024 Blood Sugar Diagnostic (True Metrix Glucose Test Strip) strip Start: 03-31-2024 Pen Needle, Diab etic (Comfort Ez Pen [place]) 33 gauge x 5/32 needle Start: 03-25-2024 Blood Sugar Diagnostic (True Metrix Glucose Test Strip) strip Start: 03-31-2024 End: 03-31-2024 Blood Sugar Diagnostic (True Metrix Glucose Test Strip) strip Start: 03-31-2024 Pen Needle, Diab etic (Comfort Ez Pen [place]) 33 gauge x 5/32 needle Start: 03-25-2024 Blood Sugar Diagnostic (True Metrix Glucose Test Strip) strip Start: 03-31-2024 End: 03-31-2024 Blood Sugar Diagnostic (True Metrix Glucose Test Strip) strip Start: 03-31-2024 Pen Needle, Diab etic (Comfort Ez Pen [place]) 33 gauge x 5/32 needle Start: 03-25-2024 Blood Sugar Diagnostic (True Metrix Glucose Test Strip) strip Start: 03-31-2024 End: 03-31-2024 Blood Sugar Diagnostic (True Metrix Glucose Test Strip) strip Start: 03-31-2024 Pen Needle, Diab etic (Comfort Ez Pen [place]) 33 gauge x 5/32 needle Start: 03-25-2024 Blood Sugar Diagnostic (True Metrix Glucose Test Strip) strip Start: 03-31-2024 End: 03-31-2024 Blood Sugar Diagnostic (True Metrix Glucose Test Strip) strip Start: 03-31-2024 Pen Needle, Diab etic (Comfort Ez Pen [place]) 33 gauge x 5/32 needle Start: 03-25-2024 Blood Sugar Diagnostic (True Metrix Glucose Test Strip) strip Start: 03-31-2024 End: 03-31-2024 Blood Sugar Diagnostic (True Metrix Glucose Test Strip) strip Start: 03-31-2024 Pen Needle, Diab etic (Comfort Ez Pen [place]) 33 gauge x 5/32 needle Start: 03-25-2024 Blood Sugar Diagnostic (True Metrix Glucose Test Strip) strip Start: 03-31-2024 End: 03-31-2024 Blood Sugar Diagnostic (True Metrix Glucose Test Strip) strip Start: 03-31-2024 Pen Needle, Diab etic (Comfort Ez Pen [place]) 33 gauge x 5/32 needle Start: 03-25-2024 Blood Sugar Diagnostic (True Metrix Glucose Test Strip) strip Start: 03-31-2024 End: 03-31-2024 Pen Needle, Diab etic (Comfort Ez Pen [place]) 33 gauge x 5/32 needle Start: 03-25-2024 Blood Sugar Diagnostic (True Metrix Glucose Test Strip) strip Start: 03-31-2024 End: 10-16-2024 Blood Sugar Diagnostic (True Metrix Glucose Test Strip) strip Start: 03-31-2024 End: 03-31-2024 Pen Needle, Diab etic (Comfort Ez Pen [place]) 33 gauge x 5/32 needle Start: 03-25-2024 Blood Sugar Diagnostic (True Metrix Glucose Test Strip) strip Start: 03-31-2024 End: 10-16-2024 Blood Sugar Diagnostic (True Metrix Glucose Test Strip) strip Start: 03-31-2024 End: 03-31-2024 Pen Needle, Diab etic (Comfort Ez Pen [place]) 33 gauge x 5/32 needle Start: 03-25-2024 Blood Sugar Diagnostic (True Metrix Glucose Test Strip) strip Start: 03-31-2024 End: 10-16-2024 Blood Sugar Diagnostic (True Metrix Glucose Test Strip) strip Start: 03-31-2024 End: 03-31-2024 Pen Needle, Diab etic (Comfort Ez Pen [place]) 33 gauge x 5/32 needle Start: 03-25-2024 Blood Sugar Diagnostic (True Metrix Glucose Test Strip) strip Start: 03-31-2024 End: 10-16-2024 Blood Sugar Diagnostic (True Metrix Glucose Test Strip) strip Start: 03-31-2024 End: 03-31-2024 Pen Needle, Diab etic (Comfort Ez Pen [place]) 33 gauge x 5/32 needle Start: 03-25-2024 Blood Sugar Diagnostic (True Metrix Glucose Test Strip) strip Start: 03-31-2024 End: 10-16-2024 Blood Sugar Diagnostic (True Metrix Glucose Test Strip) strip Start: 03-31-2024 End: 03-31-2024 Pen Needle, Diab etic (Comfort Ez Pen [place]) 33 gauge x 5/32 needle Start: 03-25-2024 Blood Sugar Diagnostic (True Metrix Glucose Test Strip) strip Start: 03-31-2024 End: 10-16-2024 Blood Sugar Diagnostic (True Metrix Glucose Test Strip) strip Start: 03-31-2024 End: 03-31-2024 Pen Needle, Diab etic (Comfort Ez Pen [place]) 33 gauge x 5/32 needle Start: 03-25-2024 Blood Sugar Diagnostic (True Metrix Glucose Test Strip) strip Start: 03-31-2024 End: 10-16-2024 Blood Sugar Diagnostic (True Metrix Glucose Test Strip) strip Start: 03-31-2024 End: 03-31-2024 Pen Needle, Diab etic (Comfort Ez Pen [place]) 33 gauge x 5/32 needle Start: 03-25-2024 Blood Sugar Diagnostic (True Metrix Glucose Test Strip) strip Start: 03-31-2024 End: 10-16-2024 Blood Sugar Diagnostic (True Metrix Glucose Test Strip) strip Start: 03-31-2024 End: 03-31-2024 Goals Date Patient Goal Desired Activity /State Functional Status Date Assessment Result Facility 08-01-2025 Functional status Patient at Baseline [facility] Work Phone: 07-29-2025 Functional status Patient Not at Baseline [facility] Work Phone: 11-04-2024 Functional Status N/A [facility] 10-20-2024 Functional status Patient at Baseline [facility] Work Phone: 08-04-2022 Functional Status N/A [facility] Mental Status Date Assessment Result Facility 08-01-2025 Cognitive function Patient at Baseline [facility] Work Phone: 07-29-2025 Cognitive function Patient at Baseline [facility] Work Phone: 10-20-2024 Cognitive function Cognitive Sta tus Patient at Baseline [facility] Work Phone: Clinical Notes 08-25-2021 to 07-31-2025 Note Date & Type Note Facility 07-31-2025 Progress note Note Date/Time July 31, 2025 12:14pm [facility] [address] [place] [address] Hospitalist Progress Note Signed Patient: Joe Call MR#: [id number] : 1945 Acct:[id number] Age/Sex: 80 / F Adm Date: 5 Loc: Room: [address] [place] [address] Type: ADM IN Attending Dr: Chasity Castro [...] Laboratory work up and Imaging studies reviewed child monitor - reviewed, normal sinus rhythm noted, [...] Ml SUBCUT 07/29/26 16:59 Not Given TID.WM.[facility] Protocol Levothyroxine Sodium 125 mcg 07/30/25 06:30 [...] signed by Chasity Castro MD> 07/31/[address] [facility] Work Phone: 1(442) 907-107109-18-2025 Progress note Author Chasity Castro [facility] Note Date/Time July 30, 2025 1:28pm [facility] [address] [place] [address] Hospitalist Progress Note Signed with Jorge Patient: Joe Call MR#: [id number] : 1945 Acct:[id number] Age/Sex: 80 / F Adm Date: 5 Loc: Room: [address] [place] [address] Type: ADM IN Attending Dr: Chasity Castro [...] Laboratory work up and Imaging studies reviewed child monitor - reviewed, normal sinus rhythm noted, [...] signed by Chasity Castro MD> 07/30/[address] [facility] Work Phone: 1(624) 721-455509-18-2025 History and physical note Author Chasity Castro [facility] Note Date/Time July 30, 2025 10:49am [facility] [address] [place] [address] Hospitalist H&P Signed Patient: Joe Call MR#: [id number] : 1945 Acct:[id number] Age/Sex: 80 / F Adm Date: 5 Loc: Room: [address] [place] [address] Type: ADM IN Attending Dr: Chasity Castro [...] past few weeks and sought care at [facility] for diuresis but left AMA due to [...] bicarb 28.8, BUN of 51, creat 1.84 evunpqc39, calcium 8.1, troponin is 13, BNP is [...] note that she has been scheduled at [facility] to receive a Watchman devicefor her a-fib [...] HTN vs Afib vs CKD. TTE from [place] 03/26/24 with 55-60% EF, severe elevated right-sided [...] chest pain. Scheduled for Watchman placement at [facility] -Continue home Xarelto 20mg QD -Hold BB for bradycardia -Check TSH, Mg 5. Hypertension with long standing JED; unable to tolerate CPAP use. Previously left [facility] AMA prior to full workup for secondary causes to include pheochromocytoma and Aldosterone/Renin ratio for possible hyperaldosteronism. A Renal artery US was completed and ruled out renal artery stenosis at [facility]. -Hydralazine PRN for SBP >185 6. DM2 with recently decreased appetite and low blood sugars. Typically takes 8 units at home recently per and still borderline low BG levels. -Monitor POC glucose with SSI insulin Code: Full Diet: Heart healthy DVT Prophylaxis: Xarelto [facility] Medical History Dietary counseling and surveillance IBS (irritable bowel syndrome) Dyspepsia Type 2 diabetes mellitus with hyperglycemia, with long-term current use of insulin Vasculitis Stress incontinence of urine Secondary hyperparathyroidism Osteoarthritis Nodular thyroid disease Lactose intolerance Memory changes Macular degeneration Lymph edema Lumbar spondylosis Lumbar degenerative disc disease MCFP (current) use of insulin Hypothyroidism Hypertension GERD [...] Verified 07/29/25 10:04) diarrhea Home Medications vitamins A,C,J-lvda-khktin 4,296 mcg-226 mg-90 mg capsule (PreserVision AREDS) 1cap PO BID 01/17/24 [History Confirmed 07/29/25] pen needle, diabetic 33 gauge x 5/32 (Comfort EZ Pen [place]) #100 ea 03/25/24 [Rx Confirmed 07/20/25] flash glucose scanning reader (FreeStyle [employer]am[employer] [place]) #1 ea 09/10/24 [Rx Confirmed 07/29/25] alprazolam [...] BID #180 tabs 07/20/25 [Rx Confirmed 07/29/25] lowamuid-jprbopbyhq-iwbd-HC 3.5 mg-400-10,000 unit/g-1 % eye ointment 1 [...] % (Auto) 13.6 % (.) 07/29/25 11:04 Ware % (Auto) 7.4 % (.) 07/29/25 11:04 Eos % (Auto) 1.7 % (.) 07/29/25 11:04 Baso % (Auto) 1.3 % (.) 07/29/25 11:04 Nucleat RBC Rel Count 0.1 /100 WBC (0-0.5) 07/29/25 11:04 Neut # (Auto) 4.5 x10E3/uL (1.8-7.7) 07/29/25 11:04 Lymph # (Auto) 0.8 x10E3/uL (1.00-4.8) L 07/29/25 11:04 Ware # (Auto) 0.4 x10E3/uL (0.0-0.8) 07/29/25 11:04 [...] been seen and examined together with medical aide Dr. Alex Betts. I personally obtained the [...] <Electronically signed by DO DE Betts> 07/29/25 8787 [facility] Work Phone: 1([phone]) 612-648309-03-2025 NoteWe called and spoke to spouse regarding [...] she is ready to proceed. Yamel Pandya, DETECTIVE LIEUTENANT-MANAGER [facility] Evaluation note* Diagnosis Onset Date Resolution Status [...] al fibrillation acute July 29, 2025 12:56pm [facility] Work Phone: [phone] Evaluation note* Diagnosis Onset Date Resolution Status [...] persistent atrial fibrillation resolved August 052024 9:32am [facility] Work Phone: [phone]) 515-318306-11-2025 NoteUT Cardiology - [facility] Subjective Joe Call is a 79 y.o. 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 (CMS/HCC) Lumbar degenerative disc disease Lumbar spondylosis Lymph edema Macular degeneration Memory changes Osteoarthritis Secondary hyperparathyroidism Stress incontinence of urine Thrush of mouth and esophagus (CMS/HCC) Urinary incontinence UTI (urinary tract infection) Yeast cystitis CARMELO (acute kidney injury) Tremor Acquired hammer toe of right foot Ataxia Balance disorder CHF (congestive heart failure) (CMS/HCC) Dehydration Diabetic foot ([facility]/HCC) Diabetic peripheral neuropathy associated with type 2 diabetes mellitus ([facility]/HCC) Disability of walking Essential tremor LPRD (laryngopharyngeal reflux disease) Mass of right axilla Paresthesia Throat tightness Type 2 diabetes mellitus with hyperglycemia, with long-term current use of insulin ([facility]/HCC) Venous insufficiency (chronic) (peripheral) Debility Arthrodesis status BMI 40.0-44.9, adult ([facility]) Epigastric pain Urine retention Family History Problem [...] prior cardiac catheterizations. She has history of AR in the past and underwent balloon angioplasty (many years ago, prior to the stent era). 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 In December 2022 she was admitted to the [facility] with decompensated diastolic heart failure, she was treated with diuretic therapy. In February 2023 she was admitted to [facility] with dehydration secondary to acute gastroenteritis. She also had acute kidney injury in that setting. She has history of breast cancer more than 25 years ago s/p mastectomy, chemo and radiation therapy. She has lymphedema in the left arm. In the past she saw a flooring installer for bleeding behind the eye . she [...] April 2024 she was admitted to the [facility] with increasing weakness and altered mental status. She also had acute renal insufficiency. She had UTI secondary to E. coli. She previously was admitted to the [facility] several times due to heart failure. She was readmitted in January 2025 to the [facility] with shortness of breath and treated [...] Respiratory: Positive for shortness (more content not included)...[facility] Evaluation note* Diagnosis Onset Date Resolution Status [...] (congestive heart failure) acute July 20 1:56pm [facility] Work Phone: [phone]) 630-945505-13-2025 Evaluation note* Diagnosis Onset Date Resolution Status [...] use of acute June 04, 2025 9:49am [facility] Work Phone: 1([phone]) 293-730705-13-2025 Hospital Discharge instructionsAmbulatory Orders* Referral to Diabetes Management Time Frame: 03/24/25, Location: None Selected [facility] Work Phone: 1([phone]) 798-371704-29-2025 Evaluation note* Diagnosis Onset Date Resolution Status [...] bowel syndrome) acute April 21, 2025 2:10pm [facility] Work Phone: [phone] 610-731204-29-2025 Evaluation note* Diagnosis Onset Date Resolution Status [...] x disease) acute May 21, 2025 10:52am [facility] Work Phone: [phone]) 384-609304-29-2025 Evaluation note* Diagnosis Onset Date Resolution Status [...] 2025 10:52am Dysuria acute June 02 12:10pm [facility] Work Phone: 1(889) 691-615504-21-2025 NoteCardiovascular Medicine [facility] SUBJECTIVE Patient is here today for follow-up after [facility] admission HPI 03/02/2025 Patient is here [...] intake. 01/28/2025 She presented yesterday to the [facility] emergency room with worsening shortness of breath [...] better. She is going to see a advertising analyst next week. Also she reports symptoms of [...] postchemotherapy and radiation She was recently in [facility] 10/16/2024, she presented with fatigue, lightheadedness [...] her lisinopril due to (more content not included)...[facility]-31[facility]2025 Evaluation note* Diagnosis Onset Date Resolution Status [...] tract infection) acute March 24, 2025 1:51pm [facility] Work Phone: [phone]) 124-846303-31-2025 Evaluation note* Diagnosis Onset Date Resolution Status [...] bowel syndrome) acute April 21, 2025 2:10pm [facility] Work Phone: 1(197) 832-375303-19-2025 NoteCardiovascular Medicine [facility] SUBJECTIVE Patient is here today for follow-up after [facility] admission HPI 01/28/2025 She presented yesterday to the [facility] emergency room with worsening shortness of breath [...] better. She is going to see a advertising analyst next week. Also she reports symptoms of [...] postchemotherapy and radiation She was recently in [facility] 10/16/2024, she presented with fatigue, lightheadedness [...] confusion regarding her d (more content not included)...[facility]02-26-2025 Telephone encounter Note* Telephone Encounter - Christel Chacon MD - 01/07/2025 12:08 PM EST prn [facility] [id number] Miscellaneous Notes* Telephone Encounter - Christel Chacon MD - 01/07/2025 12:08 PM EST prn * Telephone Encounter - Jeanne Clayton - 01/07/2025 11:26 AM EST Called pt/spoke with spouse/he said she does not want to schedule with Dr Hurd/if she changes hermind she will call us back. documented in this encounterRe[facility] [id number] Telephone encounter Note* Telephone Encounter - Jeanne Vieiradesiree - 01/07/2025 11:26 AM EST Called pt/spoke with spouse/he said she does not want to schedule with Dr Hurd/if she changes hermind she will call us back. [facility] [id number] Evaluation note* Diagnosis Onset Date Resolution Status [...] of acute March 24, 2025 1 :51pm [facility] Work Phone: 1([phone]) 308-259602-25-2025 Telephone encounter Note* Telephone Encounter - Jeanne Chacon - 01/06/2025 11:21 AM EST Left a message for pt to call Dr Chacon's office back to see if pt is planning on scheduling with Dr Hurd for sleep study. [facility] [id number] Miscellaneous Notes* Telephone Encounter - Jeanne Chacon - 01/06/2025 11:21 AM EST Left a message for pt to call Dr Chacon's office back to see if pt is planning on scheduling with Dr Hurd for sleep study. documented in this [facility]02-14-2025 Evaluation note* Diagnosis Onset Date [...] x disease) acute March 10, 2025 11:03am [facility] Work Phone: 1([phone]) 348-468402-14-2025 Evaluation note* Diagnosis Onset Date Resolution Status [...] March 10, 2025 11:[address] [facility] Work Phone: 1([phone]) [phone] Evaluation note* Diagnosis Onset Date Resolution Status [...] kidney disease acute February 19, 2025 8:32am [facility] Work Phone: [phone] NoteCardiovascular Medicine [facility] SUBJECTIVE Patient is here today for [...] postchemotherapy and radiation She was recently in [facility] 10/16/2024, she presented with fatigue, lightheadedness [...] few months. Patient here for follow up [facility]. Her diuretic was switched again back to [...] Oz of fluid a day per the advertising analyst. Her most recent discharge on 07/25/24 [...] has noticed occasional horsen (more content not included)...[facility]12-31-2024 Evaluation note* Diagnosis Onset Date Resolution Status [...] 2025 10:00am Diarrhea acute February 09 1:58pm [facility] Work Phone: [phone]) 544-991012-24-2024 Hospital Discharge instructions Patient Education 11/04/2024 11:01:25 [...] Follow these instructions at home: Medicines Take jhdq-uss-dxtwsxk and prescription medicines only as told by [...] provider. Document Revised: 07/20/2021 Document Reviewed: 07/20/2021 [employer] Patient Education 2023 [employer]. Follow Up Care 10/20/2024 13:37:01 With:FRANCHESCA PERAZA, SYDNIE Address: [address] [place] [address] Business (1) When:6 weeks [facility] Afsaneh 12-24-2024 NotePatient Education Obstetrics and Gynecology [...] these instructions at home: Medicines ??? Take fucr-jes-woavafm and prescription medicines only as told by [...] provider. Document Revised: 07/20/2021 Document Reviewed: 07/20/2021 [employer]Penz[employer] Patient Education ? 2023 [employer].[facility] 11-03-2024 Evaluation note* Diagnosis Onset [...] of acute January 06, 2 025 3:21pm [facility] Work Phone: [phone] Evaluation note* Diagnosis Onset Date Resolution Status [...] use of acute January 14, 2025 10:00am [facility] Work Phone: [phone]) [phone] NoteCardiovascular Medicine [facility] SUBJECTIVE Patient is here today for hospital follow-up. She was in [facility] with bradycardia. HPI 10/31/2024 Joe Call is a 79 y.o. female here for follow-up. Patient has history of HFpEF, paroxysmal atrial fibrillation, hypertension, diabetes mellitus type 2, chronic kidney disease, remote history of breast cancer status postchemotherapy and radiation She was recently in [facility] 10/16/2024, she presented with fatigue, lightheadedness [...] few months. Patient here for follow up [facility]. Her diuretic was switched again back to [...] Oz of fluid a day per the advertising analyst. Her most recent discharge on 07/25/24 [...] pain Depressive disorder Diabe (more content not included)...[facility] 10-16-2024 Evaluation note* Diagnosis Onset Date Resolution [...] disease) stage 3, GFR 30-59 ml/min acute [facility] er 2023 1:26pm Hyperlipidemia acute October [...] disease acu te December 09, 2024 1:24pm [facility] Work Phone: [phone] NoteCardiovascular Medicine [facility] SUBJECTIVE Chief Complaint Patient presents with [...] few months. Patient here for follow up [facility]. Her diuretic was switched again back to [...] Oz of fluid a day per the advertising analyst. Her most recent discharge on 07/25/24 [...] deficiency Lymphedema of left arm Morbid obesity ([facility]) Obstructive sleep apnea syndrome Paroxysmal supraventricular tachycardia ([facility]) Psoriasis Type 2 diabetes mellitus without complication ([facility]) Mixed hyperlipidemia Diastolic dysfunction Carotid bruit Chronic diarrhea Chronic low back pain Depressive disorder Diabetes mellitus ([facility]) Diabetic neuropathy ([facility]) Exocrine pancreatic insufficiency Gastroesophageal reflux disease Hypertension Hypomagnesemia Hypothyroidism Stage 3 chronic kidney disease ([facility]) Hyperlipidemia Atrial fibrillation ([facility]) Paroxysmal atrial fibrillation ([facility]) Abdominal swelling, generalized Acute on chronic diastolic CHF (congestive heart failure) ([facility]) Anxiety Back pain with history of spinal surgery Cervical disc disease Chalazion of right eye Dyspnea Hordeolum externum (stye) Immunization due Lactose intolerance MCFP (current) use of insulin ([facility]) Lumbar degenerative disc disease Lumbar spondylosis Lymph edema Macular degeneration Memory changes Osteoarthritis Secondary hyperparathyroidism ([facility]) Stress incontinence of urine Thrush of mouth and esophagus ([facility]) Urinary incontinence UTI (urinary tract infection) Yeast cystitis CARMELO (acute kidney injury) ([facility]) Tremor Acquired hammer toe of right foot Ataxia Balance disorder CHF (congestive heart failure) ([facility]) Dehydration Diabetic foot ([facility]) Diabetic peripheral neuropathy associated with type 2 diabetes mellitus ([facility]) Disability of walking Essential tremor LPRD (laryngopharyngeal reflux disease) Mass of right axilla Paresthesia Throat tightness Type 2 diabetes mellitus with hyperglycemia, with long-term current use of insulin ([facility]) Venous insufficiency (chronic) (peripheral) Debility Past Medical History: Diagnosis Date Atrial fibrillation ([facility]/HCC) Cancer ([facility]) Carotid artery stenosis Coronary (more content not included)...[facility] 10-08-2024 NotePatient here for 1 mo follow [...] tremors. All other systems reviewed and are negative.[facility] 10-01-2024 History of Present illness Narrative* Christel [...] on chronic diastolic CHF (congestive heart failure) ([facility]) 05/20/2024 CARMELO (acute kidney injury) ([facility]) 05/20/2024 Anxiety 05/20/2024 Aortic valve disorder 08/20/2012 Back pain with history of spinal surgery 05/20/2024 Benign essential hypertension ([facility]) 04/02/2012 Carotid artery stenosis 07/20/2022 Carotid bruit 01/16/2023 Cervical disc disease 05/20/2024 Chalazion of right eye 05/20/2024 Chronic diarrhea 01/16/2023 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 Chronic low back pain 01/16/2023 Coronary atherosclerosis ([facility]) 03/20/2012 Depressive disorder ([facility]) 01/16/2023 Diabetes mellitus ([facility]) 07/03/2024 Diabetic foot ([facility]) 07/03/2024 Diabetic neuropathy (CMS/HCC) 01/16/2023 Diabetic peripheral [...] degeneration 05/20/2024 Memory changes 05/20/2024 Morbid obesity ([facility]) 07/20/2022 Obstructive sleep apnea syndrome 03/20/2012 Paroxysmal atrial fibrillation (CMS/HCC) 03/20/2012 Paroxysmal supraventricular tachycardia (CMS/[facility]) 03/26/2012 Psoriasis (CMS/[facility]) 03/20/2012 Secondary hyperparathyroidism (CMS/HCC) 05/20/2024 Stage 3 chronic kidney disease (HCC) (CMS/[facility]) 01/16/2023 Hypertensive chronic kidney disease with stage 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 ([facility]) 05/20/2024 Pharyngitis 07/03/2024 CKD (chronic kidney disease), stage IV ([facility]) 07/03/2024 Stress incontinence of urine 05/20/2024 Urinary incontinence 05/20/2024 UTI (urinary tract infection) 05/20/2024 Yeast cystitis 05/20/2024 Past Medical History: Diagnosis Date Anemia Breast cancer ([facility]) Coronary heart disease ([facility]) Diverticulosis GERD (gastroesophageal reflux disease) AR (myocardial infarction) ([facility]) Myocardial infarction ([facility]) Type II diabetes mellitus ([facility]) Past Surgical History: Procedure Laterality Date APPENDECTOMY [...] I will call pt. documented in this encounterReynolds County General Memorial [id number] Telephone encounter Note* Telephone Encounter - Jeanne Chacon - 09/30/2024 11:01 AM EST Pt is scheduled with Dr Chacon 10/01/2024. [facility] [id number] Miscellaneous Notes* Telephone Encounter - Jeanne Chacon - 09/30/2024 11:01 AM EST Pt is scheduled with Dr Chacon 10/01/2024. * Telephone Encounter - Jeanne Chacon - 09/26/2024 8:50 AM EST Tried to call pt to schedule a follow up appt for labs, unable to leave a message. documented in this encounterReynolds County General Memorial [id number] Telephone encounter Note* Telephone Encounter - Jeanne Chacon - 09/26/2024 8:50 AM EST Tried to call pt to schedule a follow up appt for labs, unable to leave a message. [facility] [id number] NoteCardiovascular Medicine [facility] SUBJECTIVE Chief Complaint Patient presents with [...] few months. Patient here for follow up [facility]. Her diuretic was switched again back to [...] Oz of fluid a day per the advertising analyst. Her most recent discharge on 07/25/24 [...] on chronic diastolic CHF (congestive heart failure) ([facility]/HCC) Anxiety Back pain with history of spinal surgery Cervical disc disease Chalazion of right eye Dyspnea Hordeolum externum (stye) Immunization due Lactose intolerance MCFP (current) use of insulin ([facility]/HCC) Lumbar degenerative disc disease Lumbar spondylosis Lymph edema Macular degeneration Memory changes Osteoarthritis Secondary hyperparathyroidism ([facility]/HCC) Stress incontinence of urine Thrush of mouth and esophagus ([facility]/HCC) Urinary incontinence UTI (urinary tract infection) Yeast cystitis CARMELO (acute kidney injury) ([facility]/HCC) Tremor Acquired hammer toe of right foot Ataxia Balance disorder CHF (congestive heart failure) ([facility]/HCC) Dehydration Diabetic foot ([facility]) Diabetic peripheral neuropathy associated with type 2 diabetes mellitus ([facility]) Disability of walking Essential tremor LPRD (laryngopharyngeal reflux disease) Mass of right axilla Paresthesia Throat tightness Type 2 diabetes mellitus with hyperglycemia, with long-term current use of insulin ([facility]) Venous insufficiency (chronic) (peripheral) Debility Past Medical History: Diagnosis Date Atrial fibrillation ([facility]/HCC) Cancer ([facility]) Carotid artery stenosis Coronary artery disease Diabetes mellitus ([facility]) GERD (gastroesophageal reflux disease) Hypertension Sleep apnea Family History Problem Relation Name Age of Onset Coronary artery disease Other Diabetes Other Polycystic kidney disease Other Social History Tobacco Use Smoking status: Former Types: Ci (more content not included)...[facility] 09-03-2024 NotePatient here for 2 week follow up. Had echo last week and labs drawn this afternoon. Says she's feeling better. Still denies chest pain, palpitations, and bleeding on Xarelto. Review of Systems Cardiovascular: Positive for leg swelling (feet). Respiratory: Positive for shortness of breath. Musculoskeletal: Positive for muscle weakness. Neurological: Positive for tremors. All other systems reviewed and are negative.[facility] 08-20-2024 NotePatient here for follow up [facility]. Her diuretic was switched again back to [...] tremors. All other systems reviewed and are negative.[facility] 08-20-2024 NoteCardiovascular Medicine [facility] SUBJECTIVE Chief Complaint Patient presents with [...] few months. Patient here for follow up [facility]. Her diuretic was switched again back to [...] Oz of fluid a day per the advertising analyst. Her most recent discharge on 07/25/24 [...] deficiency Lymphedema of left arm Morbid obesity ([facility]) Obstructive sleep apnea syndrome Paroxysmal supraventricular tachycardia ([facility]) Psoriasis Type 2 diabetes mellitus without complication ([facility]) Mixed hyperlipidemia Diastolic dysfunction Carotid bruit Chronic diarrhea Chronic low back pain Depressive disorder Diabetes mellitus ([facility]) Diabetic neuropathy ([facility]) Exocrine pancreatic insufficiency Gastroesophageal reflux disease Hypertension Hypomagnesemia Hypothyroidism Stage 3 chronic kidney disease ([facility]) Hyperlipidemia Atrial fibrillation ([facility]) Paroxysmal atrial fibrillation ([facility]) Abdominal swelling, generalized Acute on chronic diastolic CHF (congestive heart failure) ([facility]) Anxiety Back pain with history of spinal surgery Cervical disc disease Chalazion of right eye Dyspnea Hordeolum externum (stye) Immunization due Lactose intolerance MCFP (current) use of insulin ([facility]) Lumbar degenerative disc disease Lumbar spondylosis Lymph edema Macular degeneration Memory changes Osteoarthritis Secondary hyperparathyroidism ([facility]) Stress incontinence of urine Thrush of mouth and esophagus ([facility]) Urinary incontinence UTI (urinary tract infection) Yeast cystitis CARMELO (acute kidney injury) ([facility]) Tremor Acquired hammer toe of right foot Ataxia Balance disorder CHF (congestive heart failure) ([facility]) Dehydration Diabetic foot ([facility]) Diabetic peripheral neuropathy associated with type 2 diabetes mellitus ([facility]) Disability of walking Essential tremor LPRD (laryngopharyngeal reflux disease) Mass of right axilla Paresthesia Throat tightness Type 2 diabetes mellitus with hyperglycemia, with long-term current use of insulin ([facility]) Venous insufficiency (chronic) (peripheral) Debility Past Medical History: Diagnosis Date Atrial fibrillation ([facility]/HCC) Cancer ([facility]) Carotid artery stenosis Coronary artery disease Diabetes mellitus ([facility]) GERD (gastroesophageal reflux disease) Hypertension Sleep apnea [...] All other systems reviewed (more content not included)...[facility]09[facility] History of Present illness Narrative* Christel Chacon [...] on chronic diastolic CHF (congestive heart failure) ([facility]) 05/20/2024 CARMELO (acute kidney injury) ([facility]) 05/20/2024 Anxiety 05/20/2024 Aortic valve disorder 08/20/2012 Back pain with history of spinal surgery 05/20/2024 Benign essential hypertension ([facility]) 04/02/2012 Carotid artery stenosis 07/20/2022 Carotid bruit 01/16/2023 Cervical disc disease 05/20/2024 Chalazion of right eye 05/20/2024 Chronic diarrhea 01/16/2023 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 Chronic low back pain 01/16/2023 Coronary atherosclerosis ([facility]) 03/20/2012 Depressive disorder (CMS/HCC) 01/16/2023 Diabetes mellitus (CMS/HCC) 07/03/2024 Diabetic foot (CMS/[facility]) 07/03/2024 Diabetic neuropathy (CMS/[facility]) 01/16/2023 Diabetic peripheral neuropathy associated with type 2 diabetes mellitus (CMS/HCC) 07/03/2024 Diastolic dysfunction 09/05/2022 Disability of walking 07/03/2024 Diverticulitis of colon 03/20/2012 Dyspnea 05/20/2024 Exocrine pancreatic insufficiency (CMS/HCC) 01/16/2023 Gastroesophageal reflux disease 01/16/2023 History of malignant neoplasm of breast 03/20/2012 Hordeolum externum (stye) 05/20/2024 Hyperlipidemia (CMS/[facility]) 07/03/2024 Hypertension (CMS/HCC) 01/16/2023 Near syncope 07/03/2024 Hypomagnesemia 01/16/2023 Hypothyroidism (CMS/HCC) 01/16/2023 Lumbar degenerative disc disease 05/20/2024 Lumbar spondylosis 05/20/2024 Lymph edema 05/20/2024 Lymphedema of left arm 03/20/2012 Macular degeneration 05/20/2024 Memory changes 05/20/2024 Morbid obesity (CMS/HCC) 07/20/2022 Obstructive sleep apnea syndrome 03/20/2012 Paroxysmal atrial fibrillation (CMS/[facility]) 03/20/2012 Paroxysmal supraventricular tachycardia (CMS/[facility]) 03/26/2012 Psoriasis (CMS/[facility]) 03/20/2012 Secondary hyperparathyroidism (CMS/HCC) 05/20/2024 Stage 3 chronic kidney disease (HCC) (CMS/[facility]) 01/16/2023 Hypertensive chronic kidney disease with stage 1 through stage 4 chronic kidney disease, or unspecified chronic kidney disease (CMS/HCC) 07/03/2024 Thrush of mouth and esophagus (CMS/HCC) 05/20/2024 Tremor 06/18/2024 Type 2 diabetes mellitus with hyperglycemia, with long-term current use of insulin (CMS/HCC) 07/03/2024 Venous insufficiency (chronic) (peripheral) 07/03/2024 Essential tremor 07/08/2024 Balance disorder 07/08/2024 Ataxia 07/08/2024 Diabetic peripheral neuropathy ([facility]/HCC) 07/08/2024 Paresthesia 07/08/2024 Sensory ataxia 07/10/2024 Debility 07/10/2024 Weakness 07/10/2024 Paresthesias 07/10/2024 Resolved Ambulatory Problems Diagnosis Date Noted Acute pain of left shoulder 07/03/2024 Lactose intolerance 05/20/2024 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 ([facility]) 05/20/2024 Pharyngitis 07/03/2024 CKD (chronic kidney disease), stage IV ([facility]) 07/03/2024 Stress incontinence of urine 05/20/2024 Urinary incontinence 05/20/2024 UTI (urinary tract infection) 05/20/2024 Yeast cystitis 05/20/2024 Past Medical History: Diagnosis Date Anemia Breast cancer ([facility]) Coronary heart disease ([facility]) Diverticulosis GERD (gastroesophageal reflux disease) AR (myocardial infarction) ([facility]) Myocardial infarction ([facility]) Type II diabetes mellitus ([facility]) Past Surgical History: Procedure Laterality Date APPENDECTOMY [...] contribute to throat fullness documented in this encounterReynolds County General Memorial [id number] History of Present illness Narrative* Lizett Jacinto, PRESS TECHNICIAN - 07/10/2024 1:40 PM EDT Images [...] HOSP F/U after being seen IP at [facility] for worsening SOB along with lower extremity edema and lower abdominal wall edema after being taken off of Lasix. Was discharged with instructions to f/u with PCP, Cardiologies, Thickener Operator. 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 She never followed up. Dr. Choe [...] would need to be done through the health information clerk. The patient does have benzodiazepines which are [...] modifying techniques such as weighted silverware, utensil restrooms or lounges maid and/or cups with lids on them. . [...] and the medication options Weighted silverware Utensil restrooms or lounges maid to aid with writing and putting on [...] to clinic: 2 months documented in this encounterReynolds County General Memorial [id number] Hospital Discharge instructionsAmbulatory Orders* Referral to Urology Time Frame: 02/15/24, Location: None [facility] Work Phone: [phone]) 312-532001-08-2024 Evaluation note* Encounter Date Diagnosis Assessment Notes Treatment Notes Treatment Clinical Notes Nov, Lumbar degenerative disc disease (ICD-10 - M51.36) [employer] Other 12-12-2023 Evaluation note* Encounter Date Diagnosis [...] will check vitamin B12 level next visit [employer] Other 12-11-2023 Evaluation note* Encounter Date Diagnosis Assessment Notes Treatment Notes Treatment Clinical Notes Oct, Lumbar degenerative disc disease (ICD-10 - M51.36) [employer] Other 12-07-2023 Evaluation note* Encounter Date Diagnosis Assessment Notes Treatment Notes Treatment Clinical Notes Oct, Bronchitis (ICD-10 - J40) Finish meds. No acute need for antibiotic at this time Oct, Diabetes mellitus with chronic kidney disease (ICD-10 - E11.22) Due for labs, followup w Dr. Mcconnell Oct, Lumbar degenerative disc disease (ICD-10 - M51.36) Pt will contact neurosurgery. [facility] Other 10-27-2023 Evaluation note* Encounter Date Diagnosis Assessment Notes Treatment Notes Treatment Clinical Notes Aug, Chronic kidney disease, stage 4 (severe) (ICD-10 - N18.4) [employer] Other 10-24-2023 Evaluation note* Encounter Date Diagnosis [...] (ICD-10 - M51.36) Pt requests referral to [facility]. Reviewed OAR[facility] report. Aug, Stress incontinence of urine (ICD-10 - N39.3) R/o infection. Discussed could be related to her diabetes med as well. [employer] Other 10-12-2023 Evaluation note* Encounter Date Diagnosis Assessment Notes Treatment Notes Treatment Clinical Notes Aug, Lumbar degenerative disc disease (ICD-10 - M51.36) [employer] Other 09-11-2023 Evaluation note* Encounter Date Diagnosis Assessment Notes Treatment Notes Treatment Clinical Notes Jul, Lumbar degenerative disc disease (ICD-10 - M51.36) [employer] Other 09-05-2023 Evaluation note* Encounter Date Diagnosis [...] refill. Oarrs reviewed. No med changes needed. [employer] Other 07-05-2023 Evaluation note* Encounter Date Diagnosis Assessment Notes Treatment Notes Treatment Clinical Notes May, C. difficile colitis (ICD-10 - A04.72) [employer] Other 06-19-2023 Evaluation note* Encounter Date Diagnosis Assessment Notes Treatment Notes Treatment Clinical Notes Apr, Skin candidiasis (ICD-10 - B37.2) Discussed this is related to her hyperglycemia. Will treat w nystatin, but needs improvement in diet and glucose readings. Apr, Type 2 diabetes mellitus with hyperglycemia, unspecified whether watcher automat [employer] insulin use (ICD-10 - E11.65) Pt agrees to see Dr Mcconnell again. Recently sent to ER for glucose of 608. Apr, Tremor of both hands (ICD-10 - R25.1) Referral to Dr. Lopez Apr, Memory changes (ICD- 10 - R41.3) Referral to Dr. Lopez Apr, Gastroesophageal reflux disease without esophagitis (ICD-10 - K21.9) Improved on carafate w PPI. [employer] Other 06-01-2023 Evaluation note* Encounter Date Diagnosis Assessment Notes Treatment Notes Treatment Clinical Notes Apr, Gastroesophageal ref lux disease without esophagitis (ICD-10 - K21.9) [employer] Other 04-28-2023 Evaluation note* Encounter Date Diagnosis [...] get lab ordered on 02/20 today Feb, MCFP (current) use of insulin (ICD-10 - Z79.4) [employer] Other 04-26-2023 Evaluation note* Encounter Date Diagnosis Assessment Notes Treatment Notes Treatment Clinical Notes Feb, C. difficile colitis (ICD-10 - A04.72) [employer] Other 04-17-2023 Evaluation note* Encounter Date Diagnosis Assessment Notes Treatment Notes Treatment Clinical Notes Feb, Gastroesophageal ref lux disease without esophagitis (ICD-10 - K21.9) [employer] Other 04-14-2023 Evaluation note* Encounter Date Diagnosis Assessment Notes Treatment Notes Treatment Clinical Notes Feb, Chronic diarrhea (ICD-10 - K52.9) [facility] [employer] Other 04-11-2023 Evaluation note* Encounter Date Diagnosis [...] it really overall has not been helpful. [employer] [employer] Other 01-13-2023 Evaluation note* Encounter Date Diagnosis Assessment Notes Treatment Notes Treatment Clinical Notes Nov, Type 2 diabetes mellitus with hyperglycemia, unspecified whether jail insulin use (ICD-10 - E11.65) [facility] [employer] Other 10-14-2021 Evaluation note* Encounter Date Diagnosis [...] training 6. Follow up in 3 months. [employer] Other Evaluation + Plan note No data available for this section General Surgery [facility] Evaluation + Plan note Future Appointments Appointment Date:11/06/2024 11:00:00 AM Scheduled Provider: Location:[facility] Appointment Type:URO Nurse Visit Appointment Date:12/08/2024 11:40:00 AM Scheduled Provider:FRANCHESCA PERAZA PA-C Location:[facility] Appointment Type:URO Office Visit Diagnostic Tests Pending * Renal Function Panel 11/04/24 [facility] evaluation + Plan note Future Appointments Appointment Date:12/08/2024 11:40:00 AM Scheduled Provider:FRANCHESCA PERAZA PA-C Location:[facility] Appointment Type:URO Office Visit Appointment Date:12/18/2024 11:20:00 AM Scheduled Provider:FRANCHESCA PERAZA PA-C Location:[facility] Appointment Type:URO Complex Office Visit [facility] evalcgetmy + Plan note Future Appointments Appointment Date:12/18/2024 11:20:00 AM Scheduled Provider:FRANCHESCA PERAZA PA-C Location:[facility] Appointment Type:URO Complex Office Visit [facility] evaluation noteNo InformationNoThoughtSpot Other evaluation noteNoThoughtSpot Other evaluation noteNoThoughtSpot Other evaluation note* Diagnosis Onset Date Resolution Status Chalazion of right eye acute Immunization due acute Urinary incontinence acute [facility] Work Phone: evaluation note* Diagnosis Onset Date Resolution Status Chalazion of right eye acute Immunization due acute Urinary incontinence acute Diabetes mellitus with hyperglycemia acute Hypertension acute Hypothyroidism acute Lumbar spondylosis acute Secondary hyperparathyroidism acute [facility] Work Phone: evaluation note* Diagnosis Onset [...] acute Thrush of mouth and esophagus acute [facility] Work Phone: evaluation note* Diagnosis Onset [...] IV acute UTI (urinary tract infection) acute [facility] Work Phone: Evaluation note* Diagnosis Onset [...] acute Thrush of mouth and esophagus acute [id number] acute Secondary hyperparathyroidism acute [facility] Work Phone: evaluation note* Diagnosis Onset [...] acute Thrush of mouth and esophagus acute [id number] acute CKD (chronic kidney disease) stage 3, GFR 30-59 ml/min acute Hyperlipidemia acute [id number] acute Secondary hyperparathyroidism acute Type 2 diabetes mellitus wit h diabetic chronic kidney disease acute Tremor acute [facility] Work Phone: Evaluation note* Diagnosis Onset [...] acute Thrush of mouth and esophagus acute [id number] acute CKD (chronic kidney disease) stage 3, GFR 30-59 ml/min acute Hyperlipidemia acute [id number] acute Secondary hyperparathyroidism acute Type 2 diabetes mellitus wit h diabetic chronic kidney disease acute Acute on chronic diastolic C HF (congestive heart failure) acute [id number] acute Tremor acute [id number] acute [facility] Work Phone: Evaluation note* Diagnosis Onset [...] acute Thrush of mouth and esophagus acute [id number] acute CKD (chronic kidney disease) stage 3, GFR 30-59 ml/min acute Hyperlipidemia acute [id number] acute Secondary hyperparathyroidism acute Type 2 diabetes mellitus wit h diabetic chronic kidney disease acute Acute on chronic diastolic C HF (congestive heart failure) acute [id number] acute Tremor acute [id number] acute Mass of right axilla acute [facility] Work Phone: Evaluation note* Diagnosis Onset [...] acute Thrush of mouth and esophagus acute [id number] acute CKD (chronic kidney disease) stage 3, GFR 30-59 ml/min acute Hyperlipidemia acute [id number] acute Secondary hyperparathyroidism acute Type 2 diabetes mellitus wit h diabetic chronic kidney disease acute Acute on chronic diastolic C HF (congestive heart failure) acute [id number] acute Tremor acute [id number] acute Mass of right axilla acute CHF (congestive heart failure) acute Dehydration acute [id number] acute [id number] acute [facility] Work Phone: Evaluation note* Diagnosis Onset [...] acute Thrush of mouth and esophagus acute [id number] acute CKD (chronic kidney disease) stage 3, GFR 30-59 ml/min acute Hyperlipidemia acute [id number] acute Secondary hyperparathyroidism acute Type 2 diabetes mellitus wit h diabetic chronic kidney disease acute Acute on chronic diastolic C HF (congestive heart failure) acute [id number] acute Tremor acute [id number] acute Back pain with history of spinal surgery acute Cervical disc disease acute CKD (chronic kidney disease), stage IV acute Mass of right axilla acute CHF (congestive heart failure) acute Dehydration acute [id number] acute [id number] acute Dysuria acute [facility] Work Phone: Evaluation note* Diagnosis Onset Date Resolution Status Lumbar degenerative disc disease acute Thrush of mouth and esophagus acute [id number] acute CKD (chronic kidney disease) stage 3, GFR 30-59 ml/min acute Hyperlipidemia acute [id number] acute Secondary hyperparathyroidism acute Type 2 diabetes mellitus wit h diabetic chronic kidney disease acute Acute on chronic diastolic C HF (congestive heart failure) acute [id number] acute Tremor acute [id number] acute Back pain with history of spinal surgery acute Cervical disc disease acute CKD (chronic kidney disease), stage IV acute Mass of right axilla acute CHF (congestive heart failure) acute Dehydration acute [id number] acute [id number] acute Dysuria acute [facility] Work Phone: Evaluation note* Diagnosis JED (obstructive sleep apnea)- Primary Obstructive sleep apnea (adult) (pediatric) Hypothyroidism (acquired) ([facility]) Unspecified hypothyroidism documented in this encounter [facility] HealthcareEvaluation note* Diagnosis Essential tremor- Primary Diabetic polyneuropathy associated with type 2 diabetes mellitus ([facility]) Balance disorder Sensory ataxia Lack of coordination Debility Unspecified debility Weakness Other malaise and fatigue Paresthesias Disturbance of skin sensation documented in this encounter [facility] HealthcareEvaluation note* Diagnosis JED (obstructive sleep apnea)- Primary Obstructive sleep apnea (adult) (pediatric) LPRD (laryngopharyngeal reflux disease) Acute laryngitis, without mention of obstruction Throat tightness documented in this encounter [facility] HealthcareHistory general Narrative - Reported* Type [...] History COLONOSCOPY 04/10/2019 Hospitalization History See above [facility] Undergarments Other Histzpx general Narrative - Reported* Type Description Date [...] History COLONOSCOPY 04/10/2019 Hospitalization History See above TUKZ Undergarments Other [facility] - [facility] Other Hisdhtb general Narrative - [facility] [employer] Other History general Narrative - Reported* Type [...] GERD 2022 Hospitalization History DIABETES ISSUES 2022 [facility] [employer] Other Hospital Discharge instructions No data available for this section General Surgery [facility] Discharge instructionsAmbulatory Orders* Referral to Neurology Time Frame: 06/16/24, Location: None [facility] Work Phone: Hospital Discharge instructionsAmbulatory Orders* Referral to ENT Time Frame: 06/25/24, Location: None [facility] Work Phone: Hospital Discharge instructions Additional Instructions Follow-up with your primary care doctor as you might need medication adjustments to manage your high blood sugar Return [facility] if develop worsening [facility]: Hospital Discharge instructionsAmbulatory Orders* Initiate [...] gluteal cleft only Please follow-up with your health information clerk within few weeks for further treatment of your blood pressure, and congestive heart failureKind[facility] Work Phone: Progress note No data available for this section General Surgery [place] Reason for referral (narrative)No reason for referral information availableMarion [facility] Work Phone: Rededz for visit Narrative* Consultation (Routine) - Closed Specialty Diagnoses / Procedures Referred By Contac t Referred To Contact Neurology Diagnoses Tremor, unspecified Procedures AR OFFICE/OUTPATIENT NEW LOW MDM 30 MINUTES Shantel Steven MD [address] [place] [address] Gio Choe MD [address] [place] [address] Referral ID Status Reason Start Date Expiration Date V isits Requested Visits Authorized [id number] Closed Consult and Treat 06/27/2024 12/24/2024 1 1 [facility] Healthcare Summary Purpose Family History Relationship [...] se, stage 4 (severe) (N18.4) Referral Organization [facility] [employer] helene Referring Provider First Name Shantel Referring Provider Last Name Tenisha Referring Provider Specialty [facility] Referred Organization [facility] Nephrology Referred Provider Cherie Rapp Referred Address [address] [place], [place],[address] Referred Provider Specialty Nephrology Referral Priority Routine General Notes Mariela Kingston 11:35:41 AM >received today, sent P2P Reason *FU 09/13 lumbar p ain Diagnosis 1 Lumbar degenerative disc disease (M51.36) Referral Organization [facility] helene Referring Provider First Name Shantel Referring Provider Last Name Tenisha Referring Provider Specialty [facility] Referred Organization [facility] Referred Provider Terell Soliz Referred Address [address] [place], [place],[address] Referred Provider Specialty Pain [facility] Referral Priority Routine General Notes Mariela Kingston 03:09:25 PM >received today, waiting for notes to be locked Mariela Kingston 09/06/2023 10:08:29 AM >notes locked, referral faxed Clinical Notes F: [id number] Reason Poorly controlled di abetes Diagnosis 1 Type 2 diabetes maranda itus with hyperglycemia, unspecified whether watcher [employer] goods insulin use (E11.65) Referral Organization [facility] helene Referring Provider First Name Shantel Referring Provider Last Name Tenisha Referring Provider Specialty [facility] [employer] Referred Organization Unknown Facility Referred Provider Joshua Mcconnell Referred Provider Specialty Internal Med icine Referral Priority Routine Reason tremor and memory lo ss - family history of dementia Diagnosis 1 Tremor of both hands (R25.1) Referral Organization [facility] [employer] helene Referring Provider First Name Shantel Referring Provider Last Name Tenisha Referring Provider Specialty [facility] Referred Organization Unknown Facility Referred Provider Emery [...] disc disease Thrush of mouth and esophagus [id number] Secondary hyperparathyroidism Chief Complaint medication review Amb [...] disc disease Thrush of mouth and esophagus [id number] CKD (chronic kidney disease) stage 3, GFR 30-59 ml/min Hyperlipidemia [id number] Secondary hyperparathyroidism Type 2 diabetes mellitus with [...] disc disease Thrush of mouth and esophagus [id number] CKD (chronic kidney disease) stage 3, GFR 30-59 ml/min Hyperlipidemia [id number] 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 Acute on chronic diastolic CHF (congestive heart failure) [id number] Tremor [id number] Chief Complaint difficulty swallowin g Amb Documentation [...] disc disease Thrush of mouth and esophagus [id number] CKD (chronic kidney disease) stage 3, GFR 30-59 ml/min Hyperlipidemia [id number] 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 Acute on chronic diastolic CHF (congestive heart failure) [id number] Tremor [id number] Mass of right axilla Chief Complaint difficulty [...] disc disease Thrush of mouth and esophagus [id number] CKD (chronic kidney disease) stage 3, GFR 30-59 ml/min Hyperlipidemia [id number] 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 Acute on chronic diastolic CHF (congestive heart failure) [id number] Tremor [id number] Mass of right axilla Chief Complaint difficulty [...] disc disease Thrush of mouth and esophagus [id number] CKD (chronic kidney disease) stage 3, GFR 30-59 ml/min Hyperlipidemia [id number] 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 Acute on chronic diastolic CHF (congestive heart failure) [id number] Tremor [id number] Mass of right axilla CHF (congestive heart failure) Dehydration [id number] Chief Complaint difficulty swallowin g Amb Documentation [...] disc disease Thrush of mouth and esophagus [id number] CKD (chronic kidney disease) stage 3, GFR 30-59 ml/min Hyperlipidemia [id number] 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 Acute on chronic diastolic CHF (congestive heart failure) [id number] Tremor [id number] Back pain with history of spinal surgery Cervical disc disease CKD (chronic kidney disease), stage IV Mass of right axilla CHF (congestive heart failure) Dehydration [id number] Dysuria Chief Complaint throat problem SOB RENAL CKD 4 TBH follow up 3 month f/u Kidney injury, high BP R30.0 UA Amb Documentation TBH f/u:Pulmonary Adema Reason for Visit Lumbar degenerative disc disease Thrush of mouth and esophagus [id number] CKD (chronic kidney disease) stage 3, GFR 30-59 ml/min Hyperlipidemia [id number] 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 Acute on chronic diastolic CHF (congestive heart failure) [id number] Tremor [id number] Back pain with history of spinal surgery Cervical disc disease CKD (chronic kidney disease), stage IV Mass of right axilla CHF (congestive heart failure) Dehydration [id number] Dysuria Chief Complaint Admit Date gen weakness [...] CKD (chronic kidney disease), [facility]es[facility] reflux disease[facility] 20[facility] 3:21pm Lumbar degenerative disc disease uar [...] 025 12:52pm Gastroesophageal reflux disease (GERD) [facility] 2024 3:21pm [facility] ER:Abd Pain/Chronic Pain January 14, 2025 10:00am [...] 2024 3:21pm GERD (gastroesophageal reflux disease) [facility] 2024 3:21pm Lumbar degenerative disc disease Februar 2024 3:21pm Type 2 diabetes mellitus wit h hyperglycemia, with long-term current use of January 06, 2025 3:21pm Acute on chronic diastolic CHF (congesti ve heart failure) January 14, 2025 10:00am C. difficile diarrhea January 14, 2025 10 :00am GERD (gastroesophageal reflux disease) [facility] 2024 10:00am Type 2 diabetes mellitus wit h hyperglycemia, with long-term current use of January 14, 2025 10:00am Chief Complaint Admit Date RENAL HOSP F/U November 11, 2024 1:26pm Amb Documentation December 08, 2024 2 :07pm 3 month f/u-HIGH RISK December 09, 2024 1:24pm Gerd/Diabetes-HIGH RISK December 26, 2 025 12:52pm Gastroesophageal reflux disease (GERD) [facility] 3:21pm [facility] ER:Abd Pain/Chronic Pain [...] 2024 12:52pm GERD (gastroesophageal reflux disease) [facility] 2024 12:52pm Lumbar degenerative disc disease Februar y 2024 12:52pm Seborrhea capitis in adult December 12:52pm Type 2 diabetes mellitus wit h diabetic chronic kidney disease December 26, 2024 12:52pm Acute on chronic diastolic CHF (congesti ve heart failure) January 06, 2025 3:21pm CKD (chronic kidney disease), stage IV [facility] 3:21pm GERD (gastroesophageal reflux disease) [facility] 2024 3:21pm Lumbar degenerative disc disease uar [...] 025 12:52pm Gastroesophageal reflux disease (GERD) [facility] 2024 3:21pm [facility] ER:Abd Pain/Chronic Pain January [...] 2024 12:52pm GERD (gastroesophageal reflux disease) [facility] 2024 12:52pm Lumbar degenerative disc disease uar y 2024 12:52pm Seborrhea capitis in adult December 12:52pm Type 2 diabetes mellitus wit h diabetic chronic kidney disease December 26, 2024 12:52pm Acute on chronic diastolic CHF (congesti ve heart failure) January 06, 2025 3:21pm CKD (chronic kidney disease), stage IV [facility] 2024 3:21pm GERD (gastroesophageal reflux disease) [facility] 2024 3:21pm Lumbar degenerative disc disease uar 2024 3:21pm Type 2 diabetes mellitus wit h hyperglycemia, with long-term current use of January 06, 2025 3:21pm Acute on chronic diastolic CHF (congesti ve heart failure) January 14, 2025 10:00am C. difficile diarrhea January 14, 2025 10 :00am GERD (gastroesophageal reflux disease) [facility] 2024 10:00am Type 2 diabetes [...] CKD (chronic kidney disease), stage IV [facility] 2024 3:21pm GERD (gastroesophageal reflux disease) [facility] 2024 3:21pm Lumbar degenerative disc disease Februar y 2024 3:21pm Type 2 diabetes mellitus wit h hyperglycemia, with long-term current use of January 06, 2025 3:21pm Acute on chronic diastolic CHF (congesti ve heart failure) January 14, 2025 10:00am C. difficile diarrhea January 14, 2025 10 :00am GERD (gastroesophageal reflux disease) [facility] 2024 10:00am Type 2 diabetes mellitus wit h hyperglycemia, with long-term current use of January 14, 2025 10:00am Acute on chronic diastolic CHF (congesti ve heart failure) February 09, 2025 1:58pm CKD (chronic kidney disease), stage IV [facility] 2024 1:58pm Diarrhea February 09, 2025 1:5 8pm GERD (gastroesophageal reflux disease) [facility] 2024 1:58pm Lumbar degenerative disc [...] 025 12:52pm Gastroesophageal reflux disease (GERD) [facility] 2024 3:21pm TB ER:Abd Pain/Chronic Pain January [...] 2024 12:52pm GERD (gastroesophageal reflux disease) [facility] 2024 12:52pm Lumbar degenerative disc disease Februar y 2024 12:52pm Seborrhea capitis in adult December 12:52pm Type 2 diabetes mellitus wit h diabetic chronic kidney disease December 26, 2024 12:52pm Acute on chronic diastolic CHF (congesti ve heart failure) January 06, 2025 3:21pm CKD (chronic kidney disease), stage IV [facility] 2024 3:21pm GERD (gastroesophageal reflux disease) [facility] 2024 3:21pm Lumbar degenerative disc disease Februar 2024 3:21pm Type 2 diabetes mellitus wit h hyperglycemia, with long-term current use of January 06, 2025 3:21pm Acute on chronic diastolic CHF (congesti ve heart failure) January 14, 2025 10:00am C. difficile diarrhea January 14, 2025 10 :00am GERD (gastroesophageal reflux disease) [facility] 2024 10:00am Type 2 diabetes mellitus wit h hyperglycemia, with long-term current use of January 14, 2025 10:00am Acute on chronic diastolic CHF (congesti ve heart failure) February 09, 2025 1:58pm CKD (chronic kidney disease), stage IV [facility] 2024 1:58pm Diarrhea February 09, 2025 1:5 8pm GERD (gastroesophageal reflux disease) [facility] 2024 1:58pm Lumbar degenerative disc disease [...] Admit Date Gastroesophageal reflux disease (GERD) [facility] 2024 3:21pm [facility] ER:Abd Pain/Chronic Pain January [...] CKD (chronic kidney disease), stage IV [facility] 2024 3:21pm GERD (gastroesophageal reflux disease) [facility] 2024 3:21pm Lumbar degenerative disc disease 2024 3:21pm Type 2 diabetes mellitus wit h hyperglycemia, with long-term current use of January 06, 2025 3:21pm Acute on chronic diastolic CHF (congesti ve heart failure) January 14, 2025 10:00am C. difficile diarrhea January 14, 2025 10 :00am GERD (gastroesophageal reflux disease) [facility] 2024 10:00am Type 2 diabetes mellitus wit h hyperglycemia, with long-term current use of January 14, 2025 10:00am Acute on chronic diastolic CHF (congesti ve heart failure) February 09, 2025 1:58pm CKD (chronic kidney disease), stage IV [facility] 2024 1:58pm Diarrhea February 09, 2025 1:5 8pm GERD (gastroesophageal reflux disease) [facility] 2024 1:58pm Lumbar degenerative disc disease [...] CKD (chronic kidney disease), stage IV [facility] 2024 1:58pm Diarrhea February 09, 2025 1:5 8pm GERD (gastroesophageal reflux disease) [facility] 2024 1:58pm Lumbar degenerative disc [...] 12:10pm R30.0 June 02, 2025 12:3 0pm [facility] F/U June 04, 2025 9:49 am [...] content) DATE CREATED AUTHOR 05/10/2018 [facility] DATE CREATED AUTHOR AUTHOR'S ORGANIZ ATION 03/10/2023 [facility] DATE CREATED AUTHOR AUTHOR'S ORGANIZ ATION 10/04/2024 [facility] EPIC DATE CREATED AUTHOR AUTHOR'S ORGANIZ ATION 12/21/2024 [facility] DATE CREATED AUTHOR AUTHOR'S ORGANIZ ATION 07/17/2025 [facility] DATE CREATED AUTHOR AUTHOR'S ORGANIZ ATION 08/17/2025 [facility] REASON FOR VISIT (unrecogniz [...] Team Status: Active Member Role Status Cecille Steevn MD Primary Care Provider Active Start: June [...] Team Status: Active Member Role Status Dates Shanetl Steven MD Primary Care Provider Active Start: [...] 2025 Martine Guerrero Attending Provider Active Start: [facility] 2024 Team Status: Active Member Role Status [...] 2024 Team Status: Inactive Member Role Status eCcille Steven MD Primary Care Provide r, Attending [...] End: January 18, 2024 Franchesca Sullivan APRN PRESS TECHNICIAN-C Attending Provider Act chiqui Start: January [...] 04, 2024 End: May 06, 2024 Carl Moralse MD Referring Provider Active Sta rt: May [...] August 07, 2024 End: August 07, 2024 Electrical Supervisor Relationship Specialty Start Date End Date Shantel Steven MD [address] [place] [address] PCP - General Family Medicine 06/25/24 Electrical Supervisor Relationship Specialty Start Date End Date Shantel Steven MD [address] [place] [address] PCP - General Family Medicine 06/25/24 Electrical Supervisor Relationship Specialty Start Date End Date Shantel Steven MD [address] [facility] [place] [address] PCP - General Family Medicine 06/25/24 Electrical Supervisor Relationship Specialty Start Date End Date Shantel Steven MD [address] [facility] [place] [address] PCP - General Family Medicine 06/25/24 Electrical Supervisor Relationship Specialty Start Date End Date Shantel Steven MD [address] [facility] [place] [address] PCP - General Family Medicine 06/25/24 Electrical Supervisor Relationship Specialty Start Date End Date Shantel Steven MD [address] [facility] [place] [address] PCP - General Family Medicine 06/25/24 Electrical Supervisor Relationship Specialty Start Date End Date Shantel Steven MD [address] [facility] [place] [phone] PCP - General Family Medicine 06/25/24 Electrical Supervisor Relationship Specialty Start Date End Date Shantel Steven MD [address] [place] [facility] [place] [address] PCP - General Family Medicine 06/25/24 Team [...] BE BASED ON THE PRIMARY CLINICAL RECORDS. [employer] provides no warranty or guarantee of the accuracy or completeness of information in this document.
--- NOTE | 2025-08-20 13:07 | PM.HP ---
HPI H&P: HPI History of Present Illness Chief complaint: OTHER HYPOXIA CHF EXACERBATION UTI Narrative: Mrs. Alexander is a 80-year-old female who came in with shortness of breath. She was found to have hypoxic respiratory failure. Saturation was 70% associated with tachypnea and using accessory muscles. Patient denies any chest pain, fever or chills. No abdominal pain. She reported that she has been taking her medications faithfully. Opioid HPI Opioid Management Most Recent Pain and Opioid Data: Last Pain Scale 0 07/23/25, 19:25 Last Pain Intensity 0 07/23/25, 14:17 Last Pain Assessment Today, 12:00 Last ORT Total Score 0 Today, 12:00 Last ORT Risk Category Low Risk Today, 12:00 Review of Systems ROS Status of ROS 10 or more systems reviewed and unremarkable except as noted in history and below PFSH [facility] Medical History (Updated 08/20/25 @ 10:51 by [place] DO) Noncompliance ?Z91.199 - Patient's noncompliance with other medical treatment and regimen due to unspecified reason (ICD-10) Diastolic congestive heart failure ?I50.30 - Unspecified diastolic (congestive) heart failure (ICD-10) CHF (congestive heart failure) ?I50.9 - Heart failure, unspecified (ICD-10) GERD without esophagitis ?K21.9 - Gastro-esophageal reflux disease without esophagitis (ICD-10) Anxiety ?F41.9 - Anxiety disorder, unspecified (ICD-10) Intermittent palpitations ?R00.2 - Palpitations (ICD-10) Acute hyperglycemia ?R73.9 - Hyperglycemia, unspecified (ICD-10) Acute kidney injury ?N17.9 - Acute kidney failure, unspecified (ICD-10) Acute on chronic clinical systolic heart failure ?I50.23 - Acute on chronic systolic (congestive) heart failure (ICD-10) Acute renal failure ?N17.9 - Acute kidney failure, unspecified (ICD-10) Hyperkalemia ?E87.5 - Hyperkalemia (ICD-10) Acute dehydration ?E86.0 - Dehydration (ICD-10) Diabetes mellitus with hyperglycemia, with long-term current use of insulin ?E11.65 - Type 2 diabetes mellitus with hyperglycemia (ICD-10) ?Z79.4 - senior living (current) use of insulin (ICD-10) Paroxysmal atrial fibrillation ?I48.0 - Paroxysmal atrial fibrillation (ICD-10) Hypothyroidism (acquired) ?E03.9 - Hypothyroidism, unspecified (ICD-10) Hypertension ?I10 - Essential (primary) hypertension (ICD-10) Hypokalemia ?E87.6 - Hypokalemia (ICD-10) CHF (congestive heart failure) ?I50.9 - Heart failure, unspecified (ICD-10) Cataracts, bilateral ?H26.9 - Unspecified cataract (ICD-10) Breast cancer ?C50.919 - Malignant neoplasm of unspecified site of unspecified female breast (ICD-10) Surgical History (Updated 07/05/25 @ 00:00 by ) History of cholecystectomy ?Z90.49 - Acquired absence of other specified parts of digestive tract (ICD-10) History of appendectomy ?Z90.49 - Acquired absence of other specified parts of digestive tract (ICD-10) History of hysterectomy ?Z90.710 - Acquired absence of both cervix and uterus (ICD-10) H/O lumbosacral spine surgery ?Z98.890 - Other specified postprocedural states (ICD-10) H/O bilateral mastectomy ?Z90.13 - Acquired absence of bilateral breasts and nipples (ICD-10) Family History Other Family history of CHF (congestive heart failure) Family history of cancer Family history of diabetes mellitus Family history of hypertension H/O mastectomy Social History Within the past year, how often did you have a drink containing alcohol: never Within the past year, how often did you have six or more drinks on one occasion: never Score interpretation: A score less than 3 is consistent with normal alcohol consumption. 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 Highest level of school completed/degree received: high school graduate Do you want help with school or training: No Are you now , , , , never or living with a partner: In a typical week, how many times do you talk on the telephone with family, friends, or neighbors: twice per week How often do you get together with friends or relatives: twice per week How often do you attend cheondoism or rastafarian services: never Do you belong to any clubs or organizations such as cheondoism groups unions, fraternal or athletic groups, or school groups: no Total score: 2 Score interpretation: A score of greater than or equal to 2 indicates the lowest level of social isolation. Little interest or pleasure in doing things: not at all Feeling down, depressed, or hopeless: not at all Feel stressed/tense/nervous/anxious/difficulty sleeping: not at all Due to disability, difficulty making decisions: No Do you think of yourself as: straight/heterosexual Gender Identity: female Meds Home Medications and Allergies Home Medications ?Medication ?Instructions ?Recorded ?Confirmed ?Type insulin glargine 100 unit/mL (3 15 unit subcut BEDTIME 04/25/23 08/20/25 History mL) subcutaneous pen (Lantus Solostar U-100 Insulin) levothyroxine 125 mcg tablet 125 mcg PO .acb 04/30/24 08/20/25 History insulin NPH isoph U-100 human 100 1 unit subcut AC 06/09/24 08/20/25 History unit/mL (3 mL) subcutaneous pen (Novolin N FlexPen) cholecalciferol (vitamin D3) 125 125 mcg PO DAILY 06/18/24 08/20/25 History mcg (5,000 unit) tablet (Vitamin D3) vit C 226 mg-vit E 90 mg-copper 1 cap PO BID 06/18/24 07/22/25 History 0.8 mg-zinc oxide-lutein 5 mg capsule (PreserVision Lutein) famotidine 20 mg tablet 20 mg PO .qhs 07/24/24 08/20/25 History Held on 08/20/25. Instructions: Doctor's Order buspirone 5 mg tablet 5 mg PO BID 01/25/25 08/20/25 History metoprolol tartrate 25 mg tablet 25 mg PO BID #60 tabs 05/31/25 08/20/25 Rx potassium chloride 20 mEq 20 meq PO DAILY #30 tabs 07/01/25 08/20/25 Rx tablet,extended release Held on 08/20/25. Instructions: Doctor's Order amantadine HCl 100 mg capsule 100 mg PO DAILY 08/20/25 08/20/25 History Held on 08/20/25. Instructions: Doctor's Order amlodipine 5 mg tablet 10 mg PO DAILY 08/20/25 08/20/25 History bumetanide 1 mg tablet 1 mg PO BID 08/20/25 08/20/25 History melatonin 10 mg capsule 10 mg PO HS PRN sleep 08/20/25 08/20/25 History rivaroxaban 15 mg tablet (Xarelto) 15 mg PO QPM 08/20/25 08/20/25 History Allergies Allergy/AdvReac Type Severity Reaction Status Date / Time Iodinated Contrast Media Allergy Intermediate Hives Verified 08/20/25 08:08 shellfish derived Allergy Intermediate Hives Verified 08/20/25 08:08 Sulfa (Sulfonamide Allergy Unknown Rash Verified 08/20/25 08:08 Antibiotics) Exam Narrative Exam Narrative: [pt is awake and alert. oriented to place, time and person, morbidly obese HEENT: [place] conjunctiva and NL buccal mucosa Neck: Supple, no tenderness Endocrine: No Thyromegaly. Vascular: No JVD or carotid bruit. Lymphatic: No cervical lymphadenopathy. Chest: Bilateral crackles. Diminished breath sounds at the bases consistent with likely pleural effusion Heart IRRR, no extra sound or murmur. Abd: Soft, no tenderness, no rebound and no rigidity. Increase abd girth therefore clinically I could not exclude the possibility of intra abd mass or organomegaly. LE: No cyanosis or clubbing, no varices. Pitting edema involving her arms and legs. Neuro: A A O. Nl speech, comprehension and attention. Nl and symetrical motor and tone examination through out. Overall functional impairment secondary to obesity. Nonfocal deficit []] Constitutional Vital Signs, click to edit/add: Last Vital Signs Temp 90.4 F L 08/20/25 12:00 Pulse 52 L 08/20/25 12:14 Resp 16 08/20/25 12:00 BP 119/47 L 08/20/25 12:00 Pulse Ox 91 L 08/20/25 12:00 O2 Del Method Nasal Cannula 08/20/25 12:00 O2 Flow Rate 3 08/20/25 12:00 FiO2 45 08/20/25 08:35 Results Labs Labs: Short CBC 08/20/25 Range/Units 08:15 WBC 4.5 (4.0-11.0) 10^3/uL Hgb 9.4 L (12.0-16.0) g/dL Hct 29.8 L (36.0-48.0) % Plt Count 170 (150-450) 10^3/uL BMP 08/20/25 08:15 Sodium 144 Potassium 4.7 Chloride 107 Carbon Dioxide 27.4 BUN 73.0 H Creatinine 2.40 H Glucose 166 H Calcium 8.2 L Liver Function 08/20/25 Range/Units 08:15 Total Bilirubin 0.4 (0.2-1.0) mg/dL AST 20 (15-37) U/L ALT 23 (14-59) U/L Alkaline Phosphatase 177 H (46-116) U/L Albumin 2.2 L (3.4-5.0) g/dL Urine 08/20/25 Range/Units 09:10 Urine Color Lt. yellow (YELLOW) Urine Clarity Cloudy A (CLEAR) Urine pH 5.5 (5.0-9.0) Ur Specific [place] 1.025 (1.005-1.025) Urine Protein >=300 A (NEG/TRACE) mg/dL Urine Glucose (UA) Negative (NEGATIVE) mg/dL ABG ABG results: 08/20/25 08:15 VBG pH 7.280 L VBG pCO2 54.5 H Assessment and Plan Assessment and Plan (1) Acute exacerbation of CHF (congestive heart failure): (2) Acute UTI: (3) Bilateral pleural effusion: Plan Acute hypoxic respiratory failure with an oxygen saturation dropping to the 70s associated with tachypnea, respiratory distress and using accessory muscles Acute diastolic heart failure associated with interstitial edema and pleural effusion. Suspect underlying restrictive lung disease secondary to morbid obesity. Pleural effusion which is likely transudate secondary to heart failure and a low albumin level. Could not exclude exudative process such as malignancy Chronic hypoxic respiratory failure on 2 to 3 L of oxygen My plan is to start patient on Lasix drip. 5 mg an hour which is 2.5 mL an hour. Monitor hemodynamics Hold amlodipine to allow for fluid removal. Monitor electrolytes and kidney function. CARMELO/CKD currently stage IV. Patient typically has a stage III with a baseline creatinine around 1.6 Likely caused by cardiorenal syndrome Recent imaging of the kidneys does not show any obstructive uropathy. Continue diuresis. Chronic atrial fibrillation. Rate is controlled on Xarelto. UTI associated with hypothermia, sepsis type picture Urine and blood cultures were drawn. Lactic is normal. I started patient on ertapenem suspecting that she may have ESBL UTI. Morbid obesity Diet, exercise and lifestyle modification. I do not think she qualifies for gastric bypass given her age and her comorbidities. She may qualify for GLP-1. To be addressed by PCP in the outpatient setting. Anemia, no evidence of acute blood loss. Patient will likely require to have anemia workup to be done in the outpatient setting to be handled by PCP in collaboration with other needed outpatient providers. This may include but not limited to EGD, colonoscopy, referral to see hematology and other needed age-appropriate cancer screening. Noncompliance. Patient usually signs AMA as well as she feels slightly better I hope she does not do this at this time but ultimately I do not have legal authority to keep her in the hospital against her will. Functional impairment Initiate PT OT eval and treatment once she is medically safe and stable to do so. Chronic, subacute medical conditions not listed above, abnormal labs and imaging. These would need to be addressed. Could be addressed later on or in the outpatient setting by PCP collaboration with other needed outpatient providers when time and condition are appropriate. Urinary Catheter Management Urinary Catheter Management Urethral: Cath placed during this visit: yes Urethral indwelling: No Insertion date: 08/20/25 Insertion time: 09:14
--- NOTE | 2025-08-20 13:33 | SWNOTE1 ---
BIJAL did call [facility] and spoke with David. He did confirm pt has oxygen and portability from them. Her prescription is for 2 liters with exertion.
--- NOTE | 2025-08-20 13:58 | SWNOTE1 ---
Important Message from [employer] reviewed and discussed with patient. Pt. verbalized understanding and signed the form. Original given to patient and copy placed in patient?s chart.
--- NOTE | 2025-08-20 14:01 | SWNOTE1 ---
Important Message from [employer] reviewed and discussed with patient. Pt. verbalized understanding and signed the form. Original given to patient and copy placed in patient?s chart.
--- NOTE | 2025-08-20 14:03 | SWNOTE1 ---
BIJAL met with pt to discuss dc needs. Pt lives at home with her . Pt does have [facility] coming in at this time, therapy and nursing. Pt voiced she has been ambulating at home. Pt did tell SW she is wearing her home oxygen all the time. SW did call and confirm that her prescription is for 2 liters with exertion. Pt is alert and oriented at this time, does know where she is at and the year and month. At this time pt denies any discharge needs. SW to follow as needed. BIJAL did send updates to [facility]. SW faxed face sheet, ED note, and H&P to [facility].
[2025-08-20] MEDS: ERTAPENEM SODIUM 0.5 GM in 0.9 % SODIUM CHLORIDE 50 ML IV (15:16)
[2025-08-20] MEDS: FUROSEMIDE 400 MG in 0.9 % SODIUM CHLORIDE 160 ML IV (15:16)
[2025-08-20] MEDS: INSULIN ASPART 300 UNIT/3 ML PEN SUBQ (16:31)
--- OUTSIDE RECORDS SUMMARY | 2025-08-20 20:39 | XMS_ITS | Continuity of Care Document ---
Author Organization [facility] Address [address] [place] [address] Phone Care Team Providers Care Enrollment Management Director Name Role Phone Theodora Cuevas MD Primary Care Provider Paco Bryant MD Attending Provider [phone] Monica Stewart MD Attending Provider Theodora Cuevas MD Attending Provider Jarred Durham DO Attending Provider Osbaldo Marlow MD Attending Provider Wnady Alvarez CMA Attending Provider Unavaila ble Provider, Outside Attending Provider Unavailable Jesus Barbour DO Emergency Provider [phone] Chasity Castro MD Admit Provider [phone] Chasity Castro MD Attending Provider Lizett Jacinto APRN Attending Provider [phone] Cast[place] DO Attending Provider [phone] Care Teams Visit Care Team Team Status: Active Member Role Status Dates Theodora Cuevas MD Primary Care Provider Active Start: May 28, 2025 Paco Bryant MD Attending Provider Active St art: May 28, 2025 Visit Care Team Team Status: Active Member Role Status Dates Theodora Cuevas MD Primary Care Provider Active Start: May 29, 2025 Monica Stewrat MD Attending Provider Active Sta rt: May [...] Team Status: Inactive Member Role Status Dates Theoodra Cuevas MD Primary Care Provider Active Start: [...] August 05, 2025 End: August 05, 2025 Visit Care Team Team Status: Inactive Member Role Status Dates Theodora Cueavs MD Primary Care Provider Active Start: August 17, 2025 End: August 17, 2025 Lizett Jacinto APRN Attending Provider Active Start: August 17, 2025 End: August 17, 2025 Visit Care Team Team Status: Active Member Role Status Dates Theodora Cuevas MD Primary Care Provider Active Start: August 20, 2025 [place] DO Attending Provider Active Sta rt: August 20, 2025 Patient Care Team Team Status: Inactive Member Role Status Dates [place] DO Attending Provider Active Sta rt: August 20, 2025 End: August 20, 2025 Chief Complaint and Reason for Visit Chief Complaint Admit Date UA, confusion, hallucination June 02, 2025 12:10pm R30.0 June 02, 2025 12:3 0pm [facility] F/U June 04, 2025 9:49 am Amb Documentation June 10, 2025 9:18 am CHF CKD June 15, 2025 2:0 0pm Amb Documentation [address] 11th, 2025 9: 34am Amb Documentation July 01, 2025 11 :13am Amb Documentation July 01, 2025 1: 34pm Hospital f/u-HIGH RISK July 20 1:56pm Amb Documentation July 24, 2025 8:06am sob July 29, 2025 12:56pm Amb Documentation August 03, 2025 3:29pm 2 week follow up August 05, 2025 9:32am Est ND patient for Tremor NOT NEW DX Oct quyen 2024 1:16pm Shortness of Breath August 20, 2025 9: 10am Reason for Visit Admit Date Dysuria June 02, 2025 12:1 0pm A-fib [...] atrial fibrillat ion August 05, 2025 9:32am Balance disorder August 17, 2025 1: 16pm Debility August 17, 2025 1: 16pm Diabetic polyneuropathy August 17 1:16pm Hallucination August 17, 2025 1: 16pm Memory changes August 17, 2025 1: 16pm Tremor August 17, 2025 1: 16pm Weakness August 17, 2025 1: 16pm Reason for Referral Referring Provider Name Referring Provider Address Referring Provider Phone Referral Date Requested Appointment Date Referral Reason Chasity Castro [address] [place] [address] Work Phone: in 2 w for ckd Chasity Castro [address] [place] [address] Work Phone: Previously scheduled appointment. in 2 w for ckd Previously scheduled appointment. 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 Unknown Active Benign essential tremor Unknown Active Acute respiratory failure with hypoxia Unknown Active Chalazion of right eye Unknown Active Immunization due Unknown Active Hordeolum externum (stye) Unknown Active Diabetic polyneuropathy Unknown Active Secondary hyperparathyroidism Unknown Ac tive [...] insulin Unknown Active Obstructive uropathy Unknown Active Weakness Unknown Active Memory changes Unknown Active Thrush of mouth and esophagus Unknown Ac tive Stress incontinence of urine Unknown Act chiqui Cervical disc disease Unknown Active Balance disorder Unknown Active Vitreous hemorrhage of right eye Unknown Active GERD (gastroesophageal reflux disease) Unknown Active Debility Unknown Active Acute on chronic diastolic CHF [...] tablet Discont inued 0 .ROUTE .COMPLEX 270 May 27, 2024 3:55pm June 07, 2024 [...] tablet Discont inued 0 .ROUTE .COMPLEX 270 June 07, 2024 7:28am Octob er 2023 [...] EVERY 14 days * Flash Glucose Scanning Floris (Freestyle Familia 2 Floris) [facility] [place] 0 .Route 1 Octobe r 2023 8:12am As directed Oxycodone-A cetaminophe n 5-325 mg tablet Discont inued 1 TAB PO Daily as needed for pain 30 30 Octobe r 2023 Decem vanessa 2023 [...] for pain 30 30 Decemb er 2023 Janua ry 2024 4:39p m Flash Glucose Sensor (Freestyle Familia 2 Sensor) kit Discont inued 0 .ROUTE .COMPLEX 1 Decemb er 2023 4:09pm Febru chele 2024 2:15p m USE DIRECTED to test BLOOD SUGAR DAILY *change EVERY 14 days * Oxycodone-A cetaminophe n 5-325 mg tablet Discont inued 1 TAB PO Daily as needed for pain 30 30 Novuar y 2024 Febru chele 2024 11:57 am Oxycodone-A cetaminophe n 5-325 mg tablet Discont inued 1 TAB PO Daily as needed for pain 2024February 09, 2025 2:13p m Flash Glucose [...] release(DR/ EC) Discont inued 0 .ROUTE .COMPLEX 2024 3:13pm April 21, 2025 2:19p m TAKE 1 CAPSULE BY MOUTH DAILY Buspirone 5 mg tablet Discont inued 0 .ROUTE .COMPLEX 2024 3:13pm February 09, 2025 8:15a m TAKE 1 TABLET BY MOUTH TWICE DAILY Duloxetine 20 mg capsule,del ayed release(DR/ EC) Discont inued 0 .ROUTE .COMPLEX 30 2024 3:13pm February 09, 2025 2:57p m TAKE 1 CAPSULE BY MOUTH DAILY Famotidine 20 mg tablet Discont inued 0 .ROUTE .COMPLEX 2024 3:13pm February 09, 2025 2:57p m [...] tablet Discont inued 0 .ROUTE .COMPLEX 90 February 10, 2025 8:29am March 05, 2025 [...] if 400 or great INJECT 14 UNITS) Unknown Buspirone 5 mg tablet Discont inued 0 [...] 0 .ROUTE .COMPLEX March 05, 2025 9:38am [facility] 2024 4:33p m TAKE 1 TABLET BY [...] 0 .ROUTE .COMPLEX May 29, 2025 8:57am [facility] 3:13p m USE DIRECTED to test BLOOD SUGAR DAILY *change EVERY 14 days * Buspirone 5 mg tablet Active 0 .ROUTE .COMPLEX 60 May 29, 2025 8:57am TAKE 1 TABLET BY MOUTH TWICE DAILY Unknown Insulin Glargine 100 unit/mL (3 mL) insulin pen Discont inued 20 UNIT SUBCUT Every evening June 22, 2025 12:10p [facility] 3:[facility] m Levothyroxi ne 125 mcg tablet Active 0 .ROUTE .COMPLEX 90 2024 4:33pm TAKE 1 TABLET BY MOUTH DAILY Unknown Portable Oxygen Discont inued 0 .Route .MEDSUPPLY 2024 12:00a m Septe 2024 11:16 am Use continuously Portable Oxygen Concentrato r Active 0 .Route .MEDSUPPLY 2024 11:15a m Use continuously; portable oxygen [...] inued DROPS June 11, 2021 12:00a m Junus 2020 3:16a m Levothyroxi ne 112 mcg [...] supper June 12, 2021 12:00a m Augus t 2020 12:52 pm Rivaroxaban (Xarelto) 20 mg [...] Discont inued 40 UNIT SUBCUT Every evening June 12, 2021 12:00a m January 17, [...] inued 40 MG PO Daily 30 30 Dece er 2023 1:00am [facility] vanessa 2023 3:11p m further refills or dose adjustment per Nephrology. Sodium Chloride (Nasal [place] (Sodium Chloride)) 0.65 % aerosol,spr ay Discont inued 1 SPRAY INTRAN BOSSMAN Twice daily as needed for nasal congestion 44 5 [facility] 2023 1:00am [facility] vanessa 2023 12:41 pm Albuterol Sulfate 90 mcg/actuati on HFA aerosol inhaler Discont inued 2 INH INHALA TION Q6H as needed for shortness of breath or wheezing 8 5 Dece er 2023 1:00am [facility] vanessa 2023 12:41 pm administer with spacer Cephalexin 500 mg capsule Discont inued 500 MG PO Twice daily 14 7 March 12, 2025 12:00a m March 24, 2025 2:26p m Cephalexin 500 mg capsule Discont inued 500 MG PO Twice daily 14 7 [facility] 2023 1:00am [facility] vanessa 2023 12:41 pm Triamcinolo ne Acetonide 0.1 % cream Active 1 APPLIC TOPICA L Twice daily as needed for rash 2024 12:00a m Unknown Insulin Glargine 100 unit/mL (3 mL) insulin pen Active 6 UNIT SUBCUT Every evening 2024 12:00a m On Hold: until seen by pcp Unknown Bumetanide 1 mg tablet Active 1 MG PO Twice daily 60 2024 12:00a m Unknown Amlodipine 5 mg tablet Active 10 MG PO Daily 90 2024 11:20a m Unknown Rivaroxaban 15 mg tablet Active 15 MG PO Daily 30 2024 11:20a m must administer with evening meal Unknown Dapaglifloz in Propanediol (Farxiga) 10 mg tablet [...] directed Biotin 10,000 mcg capsule Discont inued 19801 MCG PO daily June 05, 2024 12:00a [...] PO Daily June 05, 2024 12:00a [facility] Flash Glucose Scanning Floris (Freestyle Familia 2 Floris) misc Discont inued 0 .Route 1 2023 12:00a m Octob er 2023 8:13a m As directed Omeprazole 40 mg capsule,del ayed release(DR/ EC) Discont inued 40 MG PO Daily 2024 1:00am Febr2024 3:14p m Famotidine 20 mg tablet Discont inued 20 MG PO Daily at bedtime 2024 2:56pm 2024 3:14p m Duloxetine (Cymbalta) 20 mg capsule,del [...] .ROUTE .COMPLEX May 21, 2025 11:25a [facility] 11:22 am TAKE 1 TABLET BY MOUTH AT BEDTIME Triamcinolo ne Acetonide 0.5 % cream Discont inued 1 APPLIC TOPICA L Twice daily as needed for itching May 21, 2025 11:27a m June 10, 2025 9:25a m Amlodipine 5 mg tablet Discont inued 5 MG PO Daily June 10, 2025 12:00a m [facility] 2024 3:13p m Metoprolol Tartrate 25 mg tablet Active 25 MG PO Twice daily June 10, 2025 12:00a m Unknown Duloxetine 20 mg capsule,del ayed release(DR/ EC) Active 20 MG PO Once June 10, 2025 12:00a m Unknown Insulin Glargine 100 unit/mL (3 mL) insulin [...] January 17, 2024 1:00am 2024 2:57p m [place] 3-Dha-Epa-F jairo Oil (Fish Oil) 1,000 mg [...] PO Twice daily January 17, 2024 1:00am Unknown Selenomethi onine 200 mcg tablet Discont inued [...] needed June 05, 2024 12:06p m [facility] 2023 10:36 am Ketoconazol e 2 % [...] Discont inued 20 UNIT SUBCUT Every morning 15 March 25, 2024 12:00a m April 03, 2024 11:47 am Pen Needle, Diabetic (Comfort Ez Pen [place]) 33 gauge x 5/32 needle Active 0 [...] PO Daily June 16, 2024 12:00a m [facility] vanessa 2023 2:15p m Oxycodone-A cetaminophe n 5-325 mg tablet Discont inued 1 TAB PO Daily as needed for pain 30 Septem vanessa 2023 Octob er 2023 8:13a m Ketoconazol e 2 % cream Discont inued 1 APPLIC TOPICA L Twice daily 60 Sept vanessa 2023 12:00a m Dece vanessa 2023 12:41 pm Levothyroxi ne 112 mcg capsule Discont inued 112 MCG PO Daily [facility] 2023 1:00am February 09, 2025 8:15a m Alprazolam 0.25 mg tablet Discont inued 0.25 MG PO Twice daily [facility] 2023 1:00am [facility] vanessa 2023 11:38 am Furosemide 40 mg tablet Discont inued 40 MG PO Every 48 hours [facility] 2023 3:11pm February 19, 2025 9:09a m further refills or dose adjustment per Nephrology. Nystatin 100,000 unit/gram powder Discont inued TOPICA L February 19, 2025 12:00a m March 12, 2025 3:58p m Alprazolam 0.25 mg tablet Active 0.25 MG PO Three times daily as needed for anxiety February 19, 2025 12:00a m Unknown Biotin 10,000 mcg capsule Discont inued 44482 MCG PO February 19, 2025 12:00a m March 12, 2025 3:57p m Cholecalcif scar (Vitamin D3) 125 mcg (5,000 unit) capsule Active 125 MCG PO Daily February 19, 2025 12:00a m Unknown Diltiazem Hcl 120 mg tablet extended release [...] PO Daily February 19, 2025 12:00a m [facility] 2024 11:20 am must administer with evening meal Furosemide (Lasix) 40 mg tablet Discont inued 40 MG PO Daily February 19, 2025 12:00a m Augus t 2024 1:37p m Furosemide (Lasix) 40 mg tablet Discont inued 40 MG PO Twice daily July 01, 2025 1:37pm [facility] 2024 3:13p m Ketoconazol e 2 % [...] MG PO Daily April 21, 2025 2:18pm Unknown Diphenoxyla te-Atropine 2.5-0.025 mg tablet Active 1 TAB PO Every 6 hours as needed for diarrhea 08 06March 24, 2025 2:26pm Unknown Nitrofurant oin Macrocrysta l 100 mg capsule Discont inued 100 MG PO Twice daily March 24, 2025 12:00a m April 21, 2025 2:19p m must administer with a meal/food Potassium Chloride 20 mEq tablet extended release Discont inued 20 MEQ PO daily July 01, 2025 12:00a m [facility]2024 11:22 am Amlodipine 5 mg tablet Discont inued 5 MG PO Daily 90 2024 3:11pm [facility]2024 11:20 am Flash Glucose Sensor (Freestyle Familia 2 Sensor) kit Active 0 .ROUTE .COMPLEX 1 2024 3:11pm USE DIRECTED to test BLOOD SUGAR DAILY *change EVERY 14 days * Furosemide (Lasix) 40 mg tablet Discont inued 40 MG PO Twice daily 180 2024 3:12pm [facility]2024 11:22 am Triamcinolo ne Acetonide 0.1 % cream Discont inued 1 APPLIC TOPICA L Twice daily 30 2024 12:00a m [facility]2024 3:42p m Neomycin-Ba citracin-Po ly-Hc 3.5-400-10, 000 mg-unit/g-1 % ointment Active 1 APPLIC EYE-WOLFGANG TH Three times daily 3.5 2024 12:00a m Unknown Amantadine Hcl 100 mg capsule Active 100 MG PO Daily 30 2024 12:00a m Unknown Immunizations Immunization Event Date Not Given Reason Dose Number Oil [employer] Operator Lot Number Vaccine Information Statement (VIS) Detail Administration Location COVID-19 Timothy Commarin ([employer]) January 21, 2021 COVID-19 mRNADeny ([employer]) February 04, 2021 Fluzone TIV High-Dose [id number] October 17, 2024 Patient Refused [facility] influenza, unspecified formulation October 09, 2018 influenza, unspecified formulation September 04, 2023 Pneumococcal Conjugate Vaccine, 20 valent January 18, 2024 [id number] [facility] Procedures Procedure Date Performed Status Urine Culture August 20, 2025 active Urine Culture June 02, 2025 completed XR [...] 08, 2025 3:09pm June 08, 2025 3:09pm 23521.0 pg/mL Above upper panic limits <=1800.0 RESULTS [...] Food and Drug Administrat ion.Perform ed at: [address] [id number] Director: Ammy Valdez MD, Phone: [phone] Aldoster one July 23, 2025 7:58am July 23, 2025 7:58am 2.6 ng/dL 0.0-30.0 This test was developed and its performance characteris ticsdetermi fabiana by [facility]. It has not been cleared orapproved by the Food and Drug Administrat ion.Perform ed at: [address] [id number] Director: Ammy Valdez MD, Phone: [phone] Plasma Normetan ephrine July 23, 2025 7:58am July 23, 2025 7:58am 70.7 pg/mL 0.0-285.2 This test was developed and its performance characteris ticsdetermi fabiana by [facility]. It has not been cleared orapproved by the Food and Drug Administrat ion. Anion Gap July 23, 2025 7:58am July 23, 2025 7:58am 11.9 Lactic Acid Level August 20, 2025 8:15am August 20, 2025 8:15am 0.4 mmol/L 0.4-2.0 B-Type Natriure tic Peptide August 20, 2025 8:15am August 20, 2025 8:15am 6428.0 pg/mL Above upper panic limits <=1800.0 RESULTS CALLED TO HUBER MOBLEY RN Troponin I High Sensitiv ity August 20, 2025 8:15am August 20, 2025 8:15am 13.5 pg/mL 4.0-51.3 CUT-OFF POINTS HAVE BEEN ESTABLISHED [...] DIAGNOSTIC AND CLINICAL INFORMATION . Anion Gap August 20, 2025 8:15am August 20, 2025 8:15am 14.3 Venous Blood Partial Pressure CO2 August 20, 2025 8:15am August 20, 2025 8:15am 54.5 mm[Hg] Above high normal 40.0-52.0 Basophil s # (Auto) August 20, 2025 8:15am August 20, 2025 8:15am 0.0 10 3/uL 0.0-0.1 Urine Culture Reflexed August 20, 2025 9:10am [facility] BUN/Crea tinine Ratio May 28, 2025 4:45am [...] and its performance characteris ticsdetermi fabiana by [employer]. It has not been cleared orapproved by the Food and Drug Administrat ion.Perform ed at: - [address] [id number] b Director: Ammy Valdez MD, Phone: [phone] BUN/Crea tinine Ratio July 23, 2025 7:58am July 23, 2025 7:58am 25.0 Albumin/ Globulin Ratio August 20, 2025 8:15am August 20, 2025 8:15am 0.4 Venous Blood pH August 20, 2025 8:15am August 20, 2025 8:15am 7.280 Below low normal 7.330-7.43 0 Basophil s (%) (Auto) August 20, 2025 8:15am August 20, 2025 8:15am 0.7 % 0.2-2.0 Urine Other Casts August 20, 2025 9:10am NONE SEEN #/LPF NONE SEEN Blood Urea Nitrogen May 28, 2025 4:45am [...] 7:58am 41.0 mg/dL Above high normal 7.0-18.0 Albumin August 20, 2025 8:15am August 20, 2025 8:15am 2.2 g/dL Below low normal 3.4-5.0 Eosinoph ils # (Auto) August 20, 2025 8:15am August 20, 2025 8:15am 0.1 10 3/uL 0.0-0.7 Urine Other Crystals August 20, 2025 9:10am None Seen #/HPF None Seen Calcium Level May 28, 2025 4:45am May [...] normal 0.9-7.0 Mean Corpuscu lar Hemoglob in [facility] May 29, 2025 5:24am 32.9 g/dL 29.9-35.2 Mean Corpuscu lar Hemoglob in [facility] May 30, 2025 6:40am May 30, [...] 7:58am 8.3 mg/dL Below low normal 8.5-10.1 Alkaline Phosphat ase August 20, 2025 8:15am August 20, 2025 8:15am 177 U/L Above high normal 46-116 Eosinoph ils (%) (Auto) August 20, 2025 8:15am August 20, 2025 8:15am 1.8 % 0.9-7.0 Urine Bacteria August 20, 2025 9:10am LARGE #/HPF Abnormal (applies to non-numeric results) NONE SEEN Chloride Level May 28, 2025 4:45am May 28, 2025 4:45am 107 mmol/L 98-107 Hematocr it May 28, 2025 4:45am May 28, 2025 4:45am 34.4 % Below low normal 36.0-48.0 Urine Bacteria May 28, 2025 6:08am TRACE #/HPF Abnormal (applies to non-numeric results) NONE SEEN Chloride Level May 29, 2025 5:24am May 29, 2025 5:24am 105 mmol/L 98-107 Lymphocy edith # (Manual) May 29, 2025 5:24am May [...] 7:58am 109 mmol/L Above high normal 98-107 Alanine Aminotra nsferase (ALT/SGP T) August 20, 2025 8:15am August 20, 2025 8:15am 23 U/L 14-59 Hematocr it August 20, 2025 8:15am August 20, 2025 8:15am 29.8 % Below low normal 36.0-48.0 Urine Bilirubi n August 20, 2025 9:10am NEGATIVE NEGATIVE Carbon Dioxide Level May 28, 2025 4:45am [...] July 23, 2025 7:58am 27.5 mmol/L 21.0-32.0 Aspartat e Amino Transf (AST/SGO T) August 20, 2025 8:15am August 20, 2025 8:15am 20 U/L 15-37 Hemoglob in August 20, 2025 8:15am August 20, 2025 8:15am 9.4 g/dL Below low normal 12.0-16.0 Urine Occult Blood August 20, 2025 9:10am SMALL Abnormal (applies to non-numeric results) NEGATIVE Creatini ne May 28, 2025 4:45am May [...] 7:58am 1.64 mg/dL Above high normal 0.55-1.02 BUN/Crea tinine Ratio August 20, 2025 8:15am August 20, 2025 8:15am 30.4 Immature Granuloc yte # (Auto) August 20, 2025 8:15am August 20, 2025 8:15am 0.01 10 3/uL 0.00-0.03 Urine Appearan ce August 20, 2025 9:10am CLOUDY Abnormal (applies to non-numeric results) CLEAR Estimate d GFR ( ) May 28, [...] >=60 mL/min/1.7 3m 2 Blood Urea Nitrogen August 20, 2025 8:15am August 20, 2025 8:15am 73.0 mg/dL Above high normal 7.0-18.0 Immature Granuloc yte % (Auto) August 20, 2025 8:15am August 20, 2025 8:15am 0.2 % 0.0-0.5 Urine Color August 20, 2025 9:10am LT. YELLOW YELLOW Estimate d GFR (Non-Afr ican Syrian May 28, 2025 4:45am May 28, 2025 4:45am 34 Below low normal >=60 mL/min/1.7 3m 2 Lymphocy edith # (Auto) May 28, 2025 4:45am May 28, 2025 4:45am 1.4 10 3/uL 1.2-3.8 Urine Color May 28, 2025 6:08am LT. YELLOW YELLOW Estimate d GFR (Non-Afr ican Syrian May 29, 2025 5:24am May 29, 2025 [...] normal 11.0-15.0 Estimate d GFR (Non-Afr ican Syrian May 30, 2025 6:40am May 30, 2025 6:40am 28 Below low normal >=60 mL/min/1.7 3m 2 Estimate d GFR (Non-Afr ican Syrian May 31, 2025 5:50am May 31, 2025 5:50am 31 Below low normal >=60 mL/min/1.7 3m 2 Estimate d GFR (Non-Afr ican Syrian June 08, 2025 3:09pm June 08, 2025 [...] 3/uL 1.2-3.8 Estimate d GFR (Non-Afr ican Syrian June 19, 2025 5:18am June 19, 2025 [...] 3/uL 1.2-3.8 Estimate d GFR (Non-Afr ican Syrian June 30, 2025 5:15am June 30, 2025 5:15am 28 Below low normal >=60 mL/min/1.7 3m 2 Estimate d GFR (Non-Afr ican Syrian July 01, 2025 5:46am July 01, 2025 5:46am 25 Below low normal >=60 mL/min/1.7 3m 2 Calcium Level July 22, 2025 5:55am 8.2 mg/dL Below low normal 8.5-10.1 Lymphocy edith # (Auto) July 22, 2025 5:55am July 22, 2025 5:55am 0.9 10 3/uL Below low normal 1.2-3.8 Estimate d GFR (Non-Afr ican Syrian July 23, 2025 7:58am July 23, 2025 7:58am 30 Below low normal >=60 mL/min/1.7 3m 2 Calcium Level August 20, 2025 8:15am August 20, 2025 8:15am 8.2 mg/dL Below low normal 8.5-10.1 Lymphocy edith # (Auto) August 20, 2025 8:15am August 20, 2025 8:15am 0.7 10 3/uL Below low normal 1.2-3.8 Urine Glucose (UA) August 20, 2025 9:10am NEGATIVE mg/dL NEGATIVE Glucose Level May 28, 2025 4:45am May [...] 7:58am 151 mg/dL Above high normal 74-106 Chloride Level August 20, 2025 8:15am August 20, 2025 8:15am 107 mmol/L 98-107 Lymphocy edith (%) (Auto) August 20, 2025 8:15am August 20, 2025 8:15am 15.7 % Below low normal 20.5-60.0 Urine Ketones August 20, 2025 9:10am NEGATIVE mg/dL NEGATIVE [place] m Level May 28, 2025 4:45am [...] 5:15am 3.2 mmol/L Below low normal 3.5-5.1 Potassiu m Level July 01, 2025 5:46am July 01, 2025 5:46am 3.6 mmol/L 3.5-5.1 Carbon Dioxide Level July 22, 2025 5:55am 26.1 mmol/L 21.0-32.0 Mean Corpuscu lar Hemoglob in July 22, 2025 5:55am July 22, 2025 5:55am 29.7 pg 26.7-34.0 Potassiu m Level July 23, 2025 7:58am July 23, 2025 7:58am 4.4 mmol/L 3.5-5.1 Carbon Dioxide Level August 20, 2025 8:15am August 20, 2025 8:15am 27.4 mmol/L 21.0-32.0 Mean Corpuscu lar Hemoglob in August 20, 2025 8:15am August 20, 2025 8:15am 29.4 pg 26.7-34.0 Urine Leukocyt e Esterase August 20, 2025 9:10am SMALL Abnormal (applies to non-numeric results) NEGATIVE Sodium Level May 28, 2025 4:45am May 28, 2025 4:45am 143 mmol/L 136-145 Mean Corpuscu lar Hemoglob in [facility] May 28, 2025 4:45am May 28, [...] mmol/L 136-145 Mean Corpuscu lar Hemoglob in [facility] June 08, 2025 3:09pm June 08, 2025 3:09pm 32.3 g/dL 29.9-35.2 Urine Mucus June 08, 2025 4:00pm SMALL Abnormal (applies to non-numeric results) NONE SEEN Creatini ne June 09, 2025 5:05am June 09, 2025 5:05am 1.53 mg/dL Above high normal 0.55-1.02 Mean Corpuscu lar Hemoglob in [facility] June 09, 2025 5:05am June 09, 2025 5:05am 32.7 g/dL 29.9-35.2 Creatini ne June 10, 2025 5:03am June 10, 2025 5:03am 1.81 mg/dL Above high normal 0.55-1.02 Mean Corpuscu lar Hemoglob in [facility] June 10, 2025 5:03am June 10, 2025 5:03am 32.3 g/dL 29.9-35.2 Sodium Level June 19, 2025 5:18am June 19, 2025 5:18am 145 mmol/L 136-145 Creatini ne June 28, 2025 1:48pm June 28, 2025 1:48pm 1.37 mg/dL Above high normal 0.55-1.02 Mean Corpuscu lar Hemoglob in [facility] June 28, 2025 1:49pm June 28, 2025 1:49pm 32.1 g/dL 29.9-35.2 Urine Leukocyt e Esterase June 28, 2025 3:05pm NEGATIVE NEGATIVE Creatini ne June 29, 2025 5:42am June 29, 2025 5:42am 1.38 mg/dL Above high normal 0.55-1.02 Mean Corpuscu lar Hemoglob in [facility] June 29, 2025 5:54am June 29, 2025 5:54am 31.5 g/dL 29.9-35.2 Sodium Level June 30, 2025 5:15am June 30, 2025 5:15am 144 mmol/L 136-145 Sodium Level July 01, 2025 5:46am July 01, 2025 5:46am 143 mmol/L 136-145 Creatini ne July 22, 2025 5:55am 1.45 mg/dL Above high normal 0.55-1.02 Mean Corpuscu lar Hemoglob in [facility] July 22, 2025 5:55am July 22, 2025 5:55am 32.2 g/dL 29.9-35.2 Sodium Level July 23, 2025 7:58am July 23, 2025 7:58am 144 mmol/L 136-145 Creatini ne August 20, 2025 8:15am August 20, 2025 8:15am 2.40 mg/dL Above high normal 0.55-1.02 Mean Corpuscu lar Hemoglob in [facility] August 20, 2025 8:15am August 20, 2025 8:15am 31.5 g/dL 29.9-35.2 Urine Mucus August 20, 2025 9:10am NONE SEEN NONE SEEN Mean Corpuscu lar Volume May 28, 2025 [...] July 22, 2025 5:55am 92.1 fL 81.0-99.0 Estimate d GFR ( ) August 20, 2025 8:15am August 20, 2025 8:15am 24 Below low normal >=60 mL/min/1.7 3m 2 Mean Corpuscu lar Volume August 20, 2025 8:15am August 20, 2025 8:15am 93.1 fL 81.0-99.0 Urine Nitrite August 20, 2025 9:10am NEGATIVE NEGATIVE Monocyte s # (Auto) May 28, 2025 4:45am May 28, 2025 4:45am 0.6 10 3/uL 0.3-0.8 Urine Mucus May 28, 2025 6:08am NONE SEEN NONE SEEN Monocyte s # (Auto) June 08, 2025 3:09pm June 08, 2025 3:09pm 0.4 10 3/uL 0.3-0.8 Urine pH June 08, 2025 4:00pm 6.5 5.0-9.0 Estimate d GFR (Non-Afr ican Syrian June 09, 2025 5:05am June 09, 2025 5:05am 33 Below low normal >=60 mL/min/1.7 3m 2 Monocyte s # (Auto) June 09, 2025 5:05am June 09, 2025 5:05am 0.5 10 3/uL 0.3-0.8 Estimate d GFR (Non-Afr ican Syrian June 10, 2025 5:03am June 10, 2025 5:03am 27 Below low normal >=60 mL/min/1.7 3m 2 Monocyte s # (Auto) June 10, 2025 5:03am June 10, 2025 5:03am 0.5 10 3/uL 0.3-0.8 Estimate d GFR (Non-Afr ican Syrian June 28, 2025 1:48pm June 28, 2025 1:48pm 37 Below low normal >=60 mL/min/1.7 3m 2 Monocyte s # (Auto) June 28, 2025 1:49pm June 28, 2025 1:49pm 0.6 10 3/uL 0.3-0.8 Urine Nitrite June 28, 2025 3:05pm NEGATIVE NEGATIVE Estimate d GFR (Non-Afr ican Syrian June 29, 2025 5:42am June 29, 2025 5:42am 37 Below low normal >=60 mL/min/1.7 3m 2 Monocyte s # (Auto) June 29, 2025 5:54am June 29, 2025 5:54am 0.6 10 3/uL 0.3-0.8 Estimate d GFR (Non-Afr ican Syrian July 22, 2025 5:55am 35 Below low normal >=60 mL/min/1.7 3m 2 Monocyte s # (Auto) July 22, 2025 5:55am July 22, 2025 5:55am 0.5 10 3/uL 0.3-0.8 Estimate d GFR (Non-Afr ican Syrian August 20, 2025 8:15am August 20, 2025 8:15am 19 Below low normal >=60 mL/min/1.7 3m 2 Monocyte s # (Auto) August 20, 2025 8:15am August 20, 2025 8:15am 0.3 10 3/uL 0.3-0.8 Urine pH August 20, 2025 9:10am 5.5 5.0-9.0 Monocyte s (%) (Auto) May 28, 2025 [...] July 22, 2025 5:55am 8.2 % 1.7-12.0 Globulin August 20, 2025 8:15am August 20, 2025 8:15am 5.6 g/dL Monocyte s (%) (Auto) August 20, 2025 8:15am August 20, 2025 8:15am 7.6 % 1.7-12.0 Urine Protein August 20, 2025 9:10am >=300 mg/dL Abnormal (applies to non-numeric results) NEG/TRACE Mean Platelet Volume May 28, 2025 4:45am [...] July 22, 2025 5:55am 10.5 fL 9.5-13.5 Glucose Level August 20, 2025 8:15am August 20, 2025 8:15am 166 mg/dL Above high normal 74-106 Mean Platelet Volume August 20, 2025 8:15am August 20, 2025 8:15am 11.2 fL 9.5-13.5 Urine RBC August 20, 2025 9:10am 0-2 #/HPF 0-2 Neutroph ils # (Auto) May 28, 2025 4:45am May 28, 2025 4:45am 4.6 10 3/uL 1.4-6.5 Urine Protein May 28, 2025 6:08am >=300 mg/dL Abnormal (applies to non-numeric results) NEG/TRACE Neutroph ils # (Auto) June 08, 2025 3:09pm June 08, 2025 3:09pm 6.6 10 3/uL Above high normal 1.4-6.5 Urine Specific [place] June 08, 2025 4:00pm 1.020 1.005-1.02 5 [...] 22, 2025 5:55am 4.5 10 3/uL 1.4-6.5 Potass[place] m Level August 20, 2025 8:15am August 20, 2025 8:15am 4.7 mmol/L 3.5-5.1 Neutroph ils # (Auto) August 20, 2025 8:15am August 20, 2025 8:15am 3.3 10 3/uL 1.4-6.5 Urine Specific [place] August 20, 2025 9:10am 1.025 1.005-1.02 5 Neutroph ils (%) (Auto) May 28, 2025 [...] % Above high normal 43.0-75.0 Urine Specific [place] June 28, 2025 3:05pm 1.020 1.005-1.02 5 Sodium Level June 29, 2025 5:42am June 29, 2025 5:42am 144 mmol/L 136-145 Neutroph ils (%) (Auto) June 29, 2025 5:54am June 29, 2025 5:54am 65.1 % 43.0-75.0 Sodium Level July 22, 2025 5:55am 143 mmol/L 136-145 Neutroph ils (%) (Auto) July 22, 2025 5:55am July 22, 2025 5:55am 73.3 % 43.0-75.0 Sodium Level August 20, 2025 8:15am August 20, 2025 8:15am 144 mmol/L 136-145 Neutroph ils (%) (Auto) August 20, 2025 8:15am August 20, 2025 8:15am 74.0 % 43.0-75.0 Urine Squamous Epitheli al Cells August 20, 2025 9:10am RARE #/LPF NONE/RARE Platelet Count May 28, 2025 4:45am May 28, 2025 4:45am 236 10 3/uL 150-450 Urine Specific [place] May 28, 2025 6:08am 1.020 1.005-1.02 5 [...] 22, 2025 5:55am 200 10 3/uL 150-450 Total Bilirubi n August 20, 2025 8:15am August 20, 2025 8:15am 0.4 mg/dL 0.2-1.0 Platelet Count August 20, 2025 8:15am August 20, 2025 8:15am 170 10 3/uL 150-450 Urine Urobilin ogen August 20, 2025 9:10am 0.2 EU/dL 0.2-1.0 Red Blood Count May 28, 2025 4:45am [...] 3.54 10 6/uL Below low normal 4.20-5.40 Total Protein August 20, 2025 8:15am August 20, 2025 8:15am 7.8 g/dL 6.4-8.2 Red Blood Count August 20, 2025 8:15am August 20, 2025 8:15am 3.20 10 6/uL Below low normal 4.20-5.40 Urine WBC August 20, 2025 9:10am >100 #/HPF Abnormal (applies to non-numeric results) NONE SEEN Red Cell Distribu tion Width May 28, [...] 5:55am 15.5 % Above high normal 11.0-15.0 Red Cell Distribu tion Width August 20, 2025 8:15am August 20, 2025 8:15am 16.2 % Above high normal 11.0-15.0 Correcte d [...] 3/uL 4.0-11.0 Correcte d White Blood Count August 20, 2025 8:15am August 20, 2025 8:15am 4.5 10 3/uL 4.0-11.0 Correcte d White Blood Count July 31, 2025 8:18am July 31, 2025 9:22am 4.8 10*3/uL 3.8-11.6 [facility] [id number] 1111 [facility] [address] Uncorrec gali WBC Count July 31, 2025 8:18am July 31, 2025 9:22am 4.8 10*3/uL 3.8-11.6 [facility] [id number] 1111 [facility] [address] Red Blood Count July 31, 2025 8:18am July 31, 2025 9:22am 3.53 10*6/uL Below low normal 3.60-5.00 [facility] [id number] 1[address] [facility] [address] Hemoglob in July 31, 2025 8:18am July 31, 2025 9:22am 10.4 g/dL Below low normal 11.8-15.4 [facility] [id number] 1[address] [facility] [address] Hematocr it July 31, 2025 8:18am July 31, 2025 9:22am 31.7 % Below low normal 34.0-46.4 [facility] [id number] 1111 [facility] [address] Mean Corpuscu lar Volume July 31, 2025 8:18am July 31, 2025 9:22am 89.6 fL 80-100 [facility] [id number] 1111 [facility] [address] Mean Corpuscu lar Hemoglob in July 31, 2025 8:18am July 31, 2025 9:22am 29.4 pg 24.7-34.3 [facility] [id number] 1[address] [facility] [address] Mean Corpuscu lar Hemoglob in Concent July 31, 2025 8:18am July 31, 2025 9:22am 32.9 g/dL 32.0-35.0 [facility] [id number] 1111 [facility] 35396 Red Cell Distribu tion Width July 31, 2025 8:18am July 31, 2025 9:22am 17.0 % Above high normal 11.9-15.3 [facility] [id number] 1111 [facility] [address] Platelet Count July 31, 2025 8:18am July 31, 2025 9:22am 185 10*3/uL 150-450 [facility] [id number] 1111 [facility] [address] Mean Platelet Volume July 31, 2025 8:18am July 31, 2025 9:22am 8.9 fL 6.3-10.7 [facility] [id number] 1111 [facility] [address] Monocyte Distribu tion Width July 29, 2025 11:04am July 29, 2025 11:27am 18.19 % 0.00-20.00 [facility] [id number] 1111 [facility] [address] Neutroph ils (%) (Auto) July 31, 2025 8:18am July 31, 2025 9:22am 71.4 % . [facility] [id number] 1111 [facility] [address] Lymphocy edith (%) (Auto) July 31, 2025 8:18am July 31, 2025 9:22am 17.9 % . [facility] [id number] 1111 [facility] [address] Monocyte s (%) (Auto) July 31, 2025 8:18am July 31, 2025 9:22am 7.7 % . [facility] [id number] 1[address] [facility] [address] Eosinoph ils (%) (Auto) July 31, 2025 8:18am July 31, 2025 9:22am 1.5 % . [facility] [id number] 1[address] [facility] [address] Basophil s (%) (Auto) July 31, 2025 8:18am July 31, 2025 9:22am 1.5 % . [facility] [id number] 1[address] [facility] [address]61 Nucleate d RBC Relative Count (auto) July 31, 2025 8:18am July 31, 2025 9:22am 0.2 /100{WBC} 0-0.5 [facility] [id number] 1111 [facility] [address] Neutroph ils # (Auto) July 31, 2025 8:18am July 31, 2025 9:22am 3.4 10*3/uL 1.8-7.7 [facility] [id number] 1111 [facility] [address] Lymphocy edith # (Auto) July 31, 2025 8:18am July 31, 2025 9:22am 0.9 10*3/uL Below low normal 1.00-4.8 [facility] [id number] 1111 [facility] [address] Monocyte s # (Auto) July 31, 2025 8:18am July 31, 2025 9:22am 0.4 10*3/uL 0.0-0.8 [facility] [id number] 1[address] [facility] 8[address] Eosinoph ils # (Auto) July 31, 2025 8:18am July 31, 2025 9:22am 0.1 10*3/uL 0.0-0.45 [facility] [id number] [address] [place] [address] Basophil s # (Auto) July 31, 2025 8:18am July 31, 2025 9:22am 0.1 10*3/uL 0.0-0.2 [facility] [id number] [address] [place] [address] Prothrom bin Time July 29, 2025 11:04am July 29, 2025 11:53am 15.8 s Above high normal 9.0-12.9 A hematocrit value greater than 55% may lead to inaccurate results in coagulation testing. Patients having hematocrit values >55% require a special collection tube for coagulation studies. Please contact the laboratory at [phone] for redraw instruction s. [facility] [id number] 1111 [facility] [address] Prothrom b Time Internat ional Ratio July [...] with mechanical heart valves: 3 - 4.5 [facility] [id number] 1111 [facility] 16876 Glucose Level June 15, 2025 2:00pm June 15, 2025 9:18pm 235 mg/dL Above high normal 70-100 ADA recommended reference rangeRandom Glucose Reference Range is dependent on time and content of last meal. Glucose of more than 200 mg/dL in a nonstressed , ambulatory subject supports the diagnosis of Diabetes Mellitus. [facility] [id number] 1111 [facility] 19505 Glucose Level August 01, 2025 9:39am August 01, 2025 10:29am 132 mg/dL Above high normal 70-100 ADA recommended reference rangeRandom Glucose Reference Range is dependent on time and content of last meal. Glucose of more than 200 mg/dL in a nonstressed , ambulatory subject supports the diagnosis of Diabetes Mellitus. [facility] [id number] 1111 [facility] [address] Blood Urea Nitrogen June 15, 2025 2:00pm June 15, 2025 9:18pm 31 mg/dL Above high normal 7-25 [facility] [id number] 1111 [facility] [address] Blood Urea Nitrogen August 01, 2025 9:39am August 01, 2025 10:29am 48 mg/dL Above high normal 7-25 [facility] [id number] 1111 [facility] [address] Creatini ne June 15, 2025 2:00pm June 15, 2025 9:18pm 1.39 mg/dL Above high normal 0.60-1.20 [facility] [id number] 1111 [facility] [address] Creatini ne August 01, 2025 9:39am August 01, 2025 10:29am 1.97 mg/dL Above high normal 0.60-1.20 [facility] [id number] [address] [place], [place] [address] [place] [address] Estimate d GFR (CKD-EPI ) June 15, 2025 2:00pm June 15, 2025 9:18pm 38.841 mL/Min [facility] [id number] 1111 [facility] [address] Estimate d GFR (CKD-EPI ) August 01, 2025 9:39am August 01, 2025 10:29am 25.401 mL/Min [facility] [id number] 1111 [facility] [address] Sodium Level June 15, 2025 2:00pm June 15, 2025 9:18pm 141 mmol/L 136-145 [facility] [id number] 1111 [facility] [address] Sodium Level August 01, 2025 9:39am August 01, 2025 10:29am 141 mmol/L 136-145 [facility] [id number] 1111 [facility] [address] Potassiu m Level June 15, 2025 2:00pm June 15, 2025 9:18pm 3.7 mmol/L 3.5-5.1 [facility] [id number] 1[address] [facility] [address] Potassiu m Level August 01, 2025 9:39am August 01, 2025 10:29am 4.9 mmol/L 3.5-5.1 [facility] [id number] 1111 [facility] [address] Chloride Level June 15, 2025 2:00pm June 15, 2025 9:18pm 103 mmol/L 98-107 [facility] [id number] 1111 [facility] [address] Chloride Level August 01, 2025 9:39am August 01, 2025 10:29am 107 mmol/L 98-107 [facility] [id number] 1[address] [facility] 8[address]83 Carbon Dioxide Level June 15, 2025 2:00pm June 15, 2025 9:18pm 31.9 mmol/L Above high normal 21.0-31.0 [facility] [id number] 1111 [facility] 7[address] Carbon Dioxide Level August 01, 2025 9:39am August 01, 2025 10:29am 26.0 mmol/L 21.0-31.0 [facility] [id number] 1111 [facility] 58258 Anion Gap June 15, 2025 2:00pm June 15, 2025 9:18pm 9.8 mEq/L 6.0-15.0 [facility] [id number] 1111 [facility] 81093 Anion Gap August 01, 2025 9:39am August 01, 2025 10:29am 12.9 mEq/L 6.0-15.0 [facility] [id number] 1111 [facility] 75672 Calcium Level June 15, 2025 2:00pm June 15, 2025 9:18pm 8.3 mg/dL Below low normal 8.6-10.3 [facility] [id number] 1[address] [facility] 68069 Calcium Level August 01, 2025 9:39am August 01, 2025 10:29am 8.2 mg/dL Below low normal 8.6-10.3 [facility] [id number] 1[address] [facility] 39456 Magnesiu m Level July 29, 2025 11:04am July 29, 2025 6:40pm 1.7 mg/dL Below low normal 1.9-2.7 [facility] [id number] 1111 [facility] 54355 Total Protein June 15, 2025 2:00pm June 15, 2025 9:18pm 6.3 g/dL Below low normal 6.4-8.9 [facility] [id number] 1111 [facility] 34521 Albumin June 15, 2025 2:00pm June 15, 2025 9:18pm 2.8 g/dL Below low normal 3.5-5.7 [facility] [id number] 1111 [facility] 82219 Globulin June 15, 2025 2:00pm June 15, 2025 9:18pm 3.5 g/dL [facility] [id number] 1111 [facility] 39774 Albumin/ Globulin Ratio June 15, 2025 2:00pm June 15, 2025 9:18pm 0.8 [facility] [id number] [address] [place] [address] Total Bilirubi n June 15, 2025 2:00pm June 15, 2025 9:18pm 0.5 mg/dL 0.3-1.0 [facility] [id number] [address] [place] [address]011 Aspartat e Amino Transf (AST/SGO T) June 15, 2025 2:00pm June 15, 2025 9:18pm 13 U/L 13-39 [facility] [id number] [address] [place], [place] [address] Alanine Aminotra nsferase (ALT/SGP T) June 15, 2025 2:00pm June 15, 2025 9:18pm 11 U/L 7-52 [facility] [id number] [address] [place], [place] [address] Alkaline Phosphat ase June 15, 2025 2:00pm June 15, 2025 9:18pm 103 U/L 34-104 [facility] [id number] [address] [place], [place] [address] Troponin I High Sensitiv ity July 29, 2025 11:04am July 29, 2025 11:50am 13 ng/L 0-15 The Troponin units of report have been changed to meet the Chest Pain Accreditati on requirement , element EC5.M1l2. Troponin units are changed from pg/ml to ng/L. Also, the decimal is removed and results are in whole numbers. [facility] [id number] [address] [place] [address] B-Type Natriure tic Peptide July 31, 2025 8:18am July 31, 2025 5:11pm 503.0 pg/mL Above high normal 5-100 [facility] [id number] [address] [place] [address]374 Thyroid Stimulat ing Hormone 3rd Gen July 29, 2025 11:04am July 29, 2025 6:24pm 8.18 u[iU]/mL Above high normal 0.45-5.33 [facility] [id number] [address] [place] [address]186 Pharmacy Creatini ne Clearanc e (Chem June 15, 2025 2:00pm June 15, 2025 9:18pm N/A [facility] [id number] [address] [place], [place] [address] Pharmacy Creatini ne Clearanc e (Chem August 01, 2025 9:39am August 01, 2025 10:29am 29.80 [facility] [id number] [address] [place], [place] [address] Bedside Glucose August 01, 2025 11:11am August [...] 02, 2025 12:30pm June 04, 2025 9:36am [facility] [id number] [address] [place], [place] [address] Diagnostic Imaging Reports Author Vargas [facility] Authored July 29, 2025 11:42am Report Dictated Date/Time Dictated By Status Radiology Report July 29, 2025 11:42am Vargas Langston MD completed [facility] [place] [id number] XRay Report Signed Patient: Kati Luevano MR#: [id number] : 1945 Acct:[id number] Age/Sex: 80 / F ADM Date: 5 Loc: ER Room: Type: [facility] ER Attending Dr: Copies to: Jesus [...] Langston M.D. 07/29/2025 11:43 AM Dictation Location: [facility] Transcribed By: [facility] 07/29/25 1143 Dictated By: Vargas Langston MD 07/29/25 114 Signed By: <Electronically signed by Vargas Langston MD in OV> 07/29/25 1143 Author Vargas [facility] Authored July 31, 2025 8:09pm Report Dictated Date/Time Dictated By Status Radiology Report July 31, 2025 8:09pm Vargas garcia MD completed [facility] [place] [address] XRay Report Signed Patient: Kati Luevano MR#: [id number] : 1945 Acct:[id number] Age/Sex: 80 / F ADM Date: 5 Loc: Room: [address] [place] [address] Type: ADM IN Attending Dr: Chasity Castro [...] Langston M.D. 07/31/2025 8:10 PM Dictation Location: [place] [address] Transcribed By: RAFAEL 07/31/252009 Dictated By: Vargas Langston MD 07/31/252008 Signed By: <Electronically signed by Vargas Langston MD in OV> 07/31/252009 Vital Signs Vital Reading Result Reference Range Collection Date/Time Height 65 [in_i] June 04, 2025 10:17am [...] 01, 2025 8:56am Respiratory rate 16 /min -July 142024 8:56am Oxygen saturation by Pulse oximetry 96 % 95-100 August 01, 2025 8:56am BP Systolic 162 mm[Hg] 100-140 August 01, 2025 8:56am BP Diastolic 84 mm[Hg] 60-100 August 01, 2025 8:56am Inhaled oxygen concentration 2 % July 30, 2025 8:00am Inhaled oxygen flow rate 2 L/min [facility] [place] 8:56am Height 65 [in_i] August 05, [...] 2:54pm Insurance Providers Guarantor Kati Luevano Address [address] [place] [address] Contact Info. Home Phone: Payer Policy Id Subscriber's Name Subscriber Id Effectiv e Date Expiration Date Medicare [id number] Kati Luevano [id number] Encounters Encounter Location(s) Arrival/Admit Date Discharge /Depart Date Provider(s) Non-patient / Non-visit -[facility] May 28, 2025 4:45am Paco Bryant MD Non-patient / Non-visit -[facility] May 29, 2025 5:24am Monica Stewart MD Non-patient / Non-visit -[facility] May 30, 2025 6:40am Monica Stewart MD Non-patient / Non-visit -[facility] May 31, 2025 5:50am Monica Stewart MD Departed Physician/Provi claude Office Visit -[facility] June 02, 2025 12:10pm June 02, 2025 12:32pm Theodora Cuevas MD Departed Referred -Lab [facility] June 02, 2025 12:30pm June 02, 2025 12:31pm Theodora Cuevas MD Departed Physician/Provi claude Office Visit -[facility] June 04, 2025 9:49am June 04, 2025 10:42am Theodora Cuevas MD Non-patient / Non-visit -[facility] June 08, 2025 3:09pm Dulce Medina DO Non-patient / Non-visit -[facility] June 09, 2025 5:05am Osbaldo Marlow MD Non-patient / Non-visit -[facility] June 10, 2025 5:03am Osbaldo Marlow MD Non-patient / Non-visit -[facility] June 10, 2025 9:18am Wandy Alvarez CMA Departed Clinical -Lab [facility] June 15, 2025 2:00pm June 15, 2025 2:01pm Theodora Cuevas MD Non-patient / Non-visit -[facility] June 19, 2025 5:18am Outside Provider Non-patient / Non-visit -[facility] June 22, 2025 9:34am Wandy Alvarez CMA Non-patient / Non-visit -[facility] June 28, 2025 1:49pm Dulce Medina DO Non-patient / Non-visit -[facility] June 29, 2025 5:54am Monica Stewart MD Non-patient / Non-visit -[facility] June 30, 2025 5:15am Monica Stewart MD Non-patient / Non-visit -[facility] July 01, 2025 11:13am Wandy Alvarez CMA Non-patient / Non-visit -[facility] July 01, 2025 1:34pm Wandy Alvarez CMA Departed Physician/Provi claude Office Visit -[facility] July 20, 2025 1:56pm July 20, 2025 2:53pm Theodora Cuevas MD Non-patient / Non-visit -[facility] July 22, 2025 5:55am Theodora Cuevas MD Non-patient / Non-visit -[facility] July 23, 2025 7:58am Monica Stewart MD Non-patient / Non-visit -[facility] July 24, 2025 8:06am Wandy Alvarez CMA Discharged Inpatient -[facility] July 29, 2025 12:56pm August 01, 2025 12:28pm Chasity Castro MD Non-patient / Non-visit -[facility] August 03, 2025 3:29pm Wandy Alvarez CMA Departed Physician/Provi claude Office Visit -[facility] August 05, 2025 9:32am August 05, 2025 10:09am Theodora Cuevas MD Departed Physician/Provi claude Office Visit -[facility] August 17, 2025 1:16pm August 17, 2025 1:53pm Vandana Dumont [employer] Non-patient / Non-visit -[facility] August 20, 2025 8:15am Vandana Odom DO Departed Referred -[facility] August 20, 2025 9:10am August 20, 2025 9:11am Vandana Odom DO Recent Diagnosis Onset Date Admit Date Dysuria Unknown June 02, 2025 12:10pm A-fib Unknown June 04, 2025 9:49am Confusion Unknown June 04, 2025 9:49am Fall against object Unknown June 04, 9:49am Type 2 diabetes mellitus wit h hyperglycemia, with long-term current use of Unknown June 04, 2025 9:49am CHF (congestive heart failure) Unknown [facility] 2024 1:56pm CKD (chronic kidney disease), stage IV Unknown July 20, 2025 1:56pm Hypertension Unknown July 20, 1:56pm Type 2 diabetes mellitus wit h [...] 2025 12:56pm IBS (irritable bowel syndrome) Unknown [facility] 2024 12:56pm Longstanding persistent atrial fibrillation Unkn [...] 2025 9:32am IBS (irritable bowel syndrome) Unknown S eptemb2024 9:32am Longstanding persistent atrial fibrillation Unkn own August 05, 2025 9:32am Balance disorder Unknown August 17 1:16pm Debility Unknown August 17 1:16pm Diabetic polyneuropathy Unknown August 17, 2025 1:16pm Hallucination Unknown August 17 1:16pm Memory changes Unknown August 17 1:16pm Tremor Unknown August 17 1:16pm Weakness Unknown August 17 1:16pm Functional Status Observation Response Date Recorded Dressing Patient at Baseline August 012024 12:27pm Eating Patient at Baseline August 012024 12:27pm Bathing Patient at Baseline August 012024 12:27pm Disability Status Patient Not at Baseline 2024 3:55pm Mental Status Observation Response Date Recorded Cognitive Status Patient at Baseline July 142024 12:27pm Cognitive/Mental Status Assessments Assessments Diagnosis Onset Date Resolution Status Admit Date Dysuria acute June 02 12:10pm A-fib acute [...] resolved July 12:56pm IBS (irritable bowel syndrome) resol ramesh July 29, 2025 12:56pm Longstanding persistent atri al fibrillation resolved July 29, 2025 12:56pm Oxygen dependent acute Septembe r 2024 9:32am Tremor acute July 9:32am Vitreous hemorrhage of right eye acute August 05, 2025 9:32am Acute exacerbation of CHF (congestive heart failure) resolved Septe mber 2024 9:32am CKD (chronic kidney disease) stage 3, GFR 30-59 ml/min resolved Septem vanessa 2024 9:32am IBS (irritable bowel syndrome) resol ramesh August 05, 2025 9:32am Longstanding persistent atri al fibrillation resolved August 05, 2025 9:32am Balance disorder acute August 17, 2025 1:16pm Debility acute August 17, 2 025 1:16pm Diabetic polyneuropathy acute O ctober 2024 1:16pm Hallucination acute August 1:16pm Memory changes acute August 1:16pm Tremor acute August 17, 2 025 1:16pm Weakness acute August 17, 2 025 1:16pm Plan of Treatment Author Theodora [facility] Authored June 04, 2025 2:56 pm [...] agrees to HH and PT. Author Theodora [facility] Authored August 05, 2025 10:29am Referral placed to Neurology . Continue present medications. Will send discharge summary and records to [facility] Cardiology. Request soon appt. as above. Continue Xarelto Notified GI office, would be helpful if they could see her by a virtual visit. Followup w Dr. Rapp as scheduled Continue home oxygen. Author Theodora [facility] Authored June 02, 2025 4:19 pm culture ordered. Author Theodora [facility] Authored July 26, 2025 6:53pm Continue present meds. Have HH draw the below labs. Will get order to [facility] for an easier portable O2 Device. Followup w [facility] as scheduled and other specialist, including cardiology and nephrology. She continues to decline referral to diabetic specialist. has been managing her diabetes w the CGM. 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 She has not been seen in 14 months and was a year before that. This has been worsening in the last [address] Choe saw her in 2013 for a nerve/facial pain issue and a head tremor that he felt was consistent with a central tremor. Worse with fine motor skills. We had not seen any Parkinson's disease or a Parkinsonism although today she does have some resting tremor. We are going to try some Amantadine. Treatment is complicated as the patient was already on metoprolol 100 mg daily. 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 The patient did have benzodiazepines which are may have been helping the tremor. She is no longer on any Xanax. The patient is on Xarelto therefore we cannot use Mysoline as it is an enzyme inducer and may increase the metabolism of the Xarelto making it less effective. This was all discussed with her again today. She may use modifying such as weighted silverware, utensil rn womens health and/or cups with lids on them. They report she is using weighted silverware and food is still falling off utensils at times/ . Patient has balance issues and gait ataxia. This started [...] above causing the ataxia and balance issues. EMG revealed severe neuropathy. . Due to neuropathy and tremor we did trial gabapentin and try to improve both with one medication. She had s/e of diarrhea. . She is with her today. They have new complaint of some memory change and visual hallucinations. This started last month. She was talking to her about her . She did have UTI in May 2025. Shortly after she started the hallucinations. Urine was retested back in June. Hallucinations are not scary or bothersome She needs to be checked for a UTI and PCP has sent order. She says her sleep is terrible. states some nights she will not sleep. A few weeks ago she did not sleep at night for 5 nights and little during the day. She has been in hospital 5-6 times in the last 3 months for CHF. 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 Father and sister had dementia, sister at 75, dad in late 80s . She does have several possible etiologies for her memory changes and hallucinations. She has had multiple recent trips/stays in the hospital for CHF, suspect UTI as she is having some burning an increase in her incontinence, severe sleep apnea she is not treating. She could be having progression into Parkinson's as cause of hallucinations. We will start memory workup at next visit. They deny any unsafe behaviors. . 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 . . . Plan Patient arrived 12 minutes late into her 20-minute appointment. She has not been seen since June 2024 nearly 14 months ago. Scheduled for tremor and wants to talk about her memory and hallucinations as well. Test for UTI as PCP ordered as this may contribute to memory changes and hallucinations MMSE at next visit May start a dementia workup pending course and outcome of UTI testing Start Amantadine 100 mg po in the am for tremor DC gabapentin OAR[place] reviewed, she is no longer on any controlled substance PCP note reviewed from 08/05/2025 and she was to be referred for tremor We did discuss again her tremor and the medication options continue with weighted silverware Utensil rn womens health to aid with writing and putting on makeup Cups with covers on them She was counseled she needs to do regular exercise. We can consider doing some physical therapy however she will try some home exercises She needs to be more aggressive with diet and weight loss. Will discuss possible JED at the next visit, she refuses to wear mask This was discussed with the patient, all questions were answered and they agreed with the treatment plan. The patient is to call with any worsening of the condition or new symptoms. Future Tests Future scheduled test information is unavailable Pending Tests Test Name Ordered Date Scheduled Date Urine Culture August 20, 2025 9:10am Future Visits Future appointment information is unavailable Referrals to Other Providers Reason for Referral Referral Start Date Provider Provider Contact Information Provider Address in 2 w for ckd Ange Vergara MD Email: [email or web address] Phone: [phone] [place] [address] Previously scheduled appointment. Theodora Cuevas MD Work Phone: [phone] [place] [place] [address] Future Procedures Procedure Name Ordered Date Scheduled Date Urine Culture August 20, 2025 1:12pm August 20, 2025 9:10am Basic Metabolic Panel August 01, 2025 11:27 [...] put on and take off compression stockings [place] Pamphlet Know your Meds July 29, 2025 12:56pm Goals Acute Goals Author Authored Date Exhibit optimal tissue perfusion * Exhibits adequate oxygenation and ventilation * Exhibits adequate cardiac output * Regains stable cardiac rhythm * Maintains optimal activity level * Maintains balanced intake and output [facility] August 01, 2025 12:28pm Skin integrity intact [facility] August 01, 2025 12:28pm Fall Prevention 2022 [facility] August 01, 2025 12:28pm Maintain/increase activity levels * Understands factors that may lead to activity intolerance * Helps perform self care activities * Maintains maximum range of motion * Increase/regain muscle mass and strength * Maintains VS WNL during activity * Maintain intact skin integrity Updated: 12/25/2022 [facility] August 01, 2025 12:28pm Preferences Type Detail Treatment Intervention Code Status: Full Code
--- NOTE | 2025-08-20 20:45 | RESP.RT ---
Titrated to 3 LPM
[2025-08-20] MEDS: RIVAROXABAN 10 MG TABLET 15 MG PO (21:49)
[2025-08-20] MEDS: METOPROLOL TARTRATE 25 MG TABLET 12.5 MG PO (21:49)
[2025-08-20] MEDS: BUSPIRONE HCL 10 MG TABLET PO (21:49)
[2025-08-20] MEDS: NYSTATIN 15 GM POWDER 1 APPLIC TOPICAL (21:49)
[2025-08-21] VITALS (25 sets, daily range): BP systolic 125–139; BP diastolic 72–81; PULSE 67–86; TEMP 36.3–36.8; O2SAT 84–95
--- NOTE | 2025-08-21 03:55 | PM.PN ---
Progress Note: Subjective Subjective Interval history: Patient is feeling somewhat better. She continues to report having subjective shortness of breath. Blood pressure had improved. She is on Lasix drip at 5 mg an hour, 2.5 mL an hour. She is on 4 L. Saturation 94%. Exam Narrative Exam Narrative: [pt is awake and alert. oriented to place, time and person, morbidly obese, mildly tachypneic at rest. Respiratory is about 20. HEENT: [place] conjunctiva and NL buccal mucosa Neck: Supple, no tenderness Endocrine: No Thyromegaly. Vascular: No JVD or carotid bruit. Lymphatic: No cervical lymphadenopathy. Chest: Bilateral crackles. Diminished breath sounds at the bases consistent with likely pleural effusion Heart IRRR, no extra sound or murmur. Abd: Soft, no tenderness, no rebound and no rigidity. Increase abd girth therefore clinically I could not exclude the possibility of intra abd mass or organomegaly. LE: No cyanosis or clubbing, no varices. Pitting edema involving her arms and legs. Neuro: A A O. Nl speech, comprehension and attention. Nl and symetrical motor and tone examination through out. Overall functional impairment secondary to obesity. Nonfocal deficit []] Constitutional Vital Signs, click to edit/add: Last Vital Signs Temp 98.3 F 08/21/25 03:32 Pulse 86 08/21/25 03:32 Resp 25 H 08/21/25 03:32 BP 137/74 08/21/25 03:32 Pulse Ox 94 L 08/21/25 03:32 O2 Del Method Nasal Cannula 08/21/25 03:32 O2 Flow Rate 4 08/21/25 03:32 FiO2 45 08/20/25 08:35 Progress Note: Objective Labs Labs: Short CBC 08/20/25 Range/Units 08:15 WBC 4.5 (4.0-11.0) 10^3/uL Hgb 9.4 L (12.0-16.0) g/dL Hct 29.8 L (36.0-48.0) % Plt Count 170 (150-450) 10^3/uL BMP 08/20/25 08:15 Sodium 144 Potassium 4.7 Chloride 107 Carbon Dioxide 27.4 BUN 73.0 H Creatinine 2.40 H Glucose 166 H Calcium 8.2 L Liver Function 08/20/25 Range/Units 08:15 Total Bilirubin 0.4 (0.2-1.0) mg/dL AST 20 (15-37) U/L ALT 23 (14-59) U/L Alkaline Phosphatase 177 H (46-116) U/L Albumin 2.2 L (3.4-5.0) g/dL Urine 08/20/25 Range/Units 09:10 Urine Color Lt. yellow (YELLOW) Urine Clarity Cloudy A (CLEAR) Urine pH 5.5 (5.0-9.0) Ur Specific [place] 1.025 (1.005-1.025) Urine Protein >=300 A (NEG/TRACE) mg/dL Urine Glucose (UA) Negative (NEGATIVE) mg/dL Progress Note: A&P Assessment and Plan (1) Acute exacerbation of CHF (congestive heart failure): (2) Acute UTI: (3) Bilateral pleural effusion: Plan Acute hypoxic respiratory failure with an oxygen saturation dropping to the 70s associated with tachypnea, respiratory distress and using accessory muscles Acute diastolic heart failure associated with interstitial edema and pleural effusion. Suspect underlying restrictive lung disease secondary to morbid obesity. Pleural effusion which is likely transudate secondary to heart failure and a low albumin level. Could not exclude exudative process such as malignancy Chronic hypoxic respiratory failure on 2 to 3 L of oxygen My plan is to start patient on Lasix drip. 5 mg an hour which is 2.5 mL an hour. Monitor hemodynamics Hold amlodipine to allow for fluid removal. Monitor electrolytes and kidney function. Blood pressure had improved. Continues to require oxygen supplementation. She is on oxygen at home Peacock bag is full of urine. To be measured by nurse. Morning labs are pending. CARMELO/CKD currently stage IV. Patient typically has a stage III with a baseline creatinine around 1.6 Likely caused by cardiorenal syndrome Recent imaging of the kidneys does not show any obstructive uropathy. Continue diuresis. Morning labs are pending. Chronic atrial fibrillation. Rate is controlled on Xarelto. UTI associated with hypothermia, sepsis type picture Urine and blood cultures were drawn. Lactic is normal. I started patient on ertapenem suspecting that she may have ESBL UTI. Morbid obesity Diet, exercise and lifestyle modification. I do not think she qualifies for gastric bypass given her age and her comorbidities. She may qualify for GLP-1. To be addressed by PCP in the outpatient setting. Anemia, no evidence of acute blood loss. Patient will likely require to have anemia workup to be done in the outpatient setting to be handled by PCP in collaboration with other needed outpatient providers. This may include but not limited to EGD, colonoscopy, referral to see hematology and other needed age-appropriate cancer screening. Noncompliance. Patient usually signs AMA as well as she feels slightly better I hope she does not do this at this time but ultimately I do not have legal authority to keep her in the hospital against her will. Functional impairment Initiate PT OT eval and treatment once she is medically safe and stable to do so. Chronic, subacute medical conditions not listed above, abnormal labs and imaging. These would need to be addressed. Could be addressed later on or in the outpatient setting by PCP collaboration with other needed outpatient providers when time and condition are appropriate. Urinary Catheter Management Urinary Catheter Management Urethral: Cath placed during this visit: yes Urethral indwelling: No Insertion date: 08/20/25 Insertion time: 09:14
[2025-08-21] MEDS: ACETAMINOPHEN 325 MG TABLET 650 MG PO ×2 (05:33→15:46)
[2025-08-21] MEDS: LEVOTHYROXINE SODIUM 125 MCG TABLET PO (05:33)
--- NOTE | 2025-08-21 05:43 | PC.NURSE ---
cloudy yellow urine
--- NOTE | 2025-08-21 05:48 | RESP.RT ---
Titrated to 4 LPM
[2025-08-21 06:03] LABS: Hematocrit 27.6 % (36.0-48.0); Hemoglobin 8.5 g/dL (12.0-16.0); Immature Granulocytes Abs Auto 0.02 10^3/uL (0.00-0.03); Immature Granulocytes Pct Auto 0.3 % (0.0-0.5); Lymphocytes Absolute Auto 0.6 10^3/uL (1.2-3.8); Mean Corpuscular HGB Conc 30.8 g/dL (29.9-35.2); Mean Corpuscular Hemoglobin 28.5 pg (26.7-34.0); Mean Corpuscular Volume 92.6 fL (81.0-99.0); Platelet Count 181 10^3/uL (150-450); Red Blood Count 2.98 10^6/uL (4.20-5.40); White Blood Count 6.8 10^3/uL (4.0-11.0)
[2025-08-21 06:16] LABS: Anion Gap 13.7; Blood Urea Nitrogen 74.0 mg/dL (7.0-18.0); Calcium 7.9 mg/dL (8.5-10.1); Carbon Dioxide 25.7 mmol/L (21.0-32.0); Chloride 107 mmol/L (98-107); Estimated GFR (African America 22 (>=60 mL/min/1.73m^2); Estimated GFR (Non-African Ame 18 (>=60 mL/min/1.73m^2); Glucose 99 mg/dL (74-106); Potassium 5.4 mmol/L (3.5-5.1); Sodium 141 mmol/L (136-145)
[2025-08-21] MEDS: METOPROLOL TARTRATE 25 MG TABLET 12.5 MG PO ×2 (08:47→22:17)
[2025-08-21] MEDS: BUSPIRONE HCL 10 MG TABLET PO ×2 (08:47→22:18)
[2025-08-21] MEDS: NYSTATIN 15 GM POWDER 1 APPLIC TOPICAL (08:47)
--- NOTE | 2025-08-21 09:14 | CM.NOTE ---
CRF completed for possible discharge over the weekend. Dr. Stewart signed CRF.
--- NOTE | 2025-08-21 11:31 | SWNOTE1 ---
No discharge today for pt. SW faxed updates to [facility] including physician note from today, labs, and vitals.
[2025-08-21] MEDS: ZIPRASIDONE MESYLATE 20 MG VIAL 10 MG IM (13:11)
[2025-08-21] MEDS: WATER FOR INJECTION, STERILE 20 ML VIAL INJ (13:11)
[2025-08-21] MEDS: ERTAPENEM SODIUM 0.5 GM in 0.9 % SODIUM CHLORIDE 50 ML IV (14:30)
[2025-08-21] MEDS: FUROSEMIDE 400 MG in 0.9 % SODIUM CHLORIDE 160 ML IV (14:30)
[2025-08-21] MEDS: 0.9 % SODIUM CHLORIDE 250 ML 10 ML IV (15:04)
[2025-08-21 15:32] LABS: Anion Gap 14.8; Blood Urea Nitrogen 73.0 mg/dL (7.0-18.0); Calcium 7.9 mg/dL (8.5-10.1); Carbon Dioxide 23.9 mmol/L (21.0-32.0); Chloride 106 mmol/L (98-107); Estimated GFR (African America 22 (>=60 mL/min/1.73m^2); Estimated GFR (Non-African Ame 18 (>=60 mL/min/1.73m^2); Glucose 104 mg/dL (74-106); Potassium 4.7 mmol/L (3.5-5.1); Sodium 140 mmol/L (136-145)
[2025-08-21] MEDS: RIVAROXABAN 10 MG TABLET 15 MG PO (17:01)
[2025-08-21] MEDS: INSULIN GLARGINE 300 UNIT/3 ML INSULN.PEN 10 UNIT SQ (22:18)
[2025-08-22] VITALS (19 sets, daily range): BP systolic 125–143; BP diastolic 72–84; PULSE 57–89; TEMP 35.9–36.4; O2SAT 91–99
[2025-08-22 06:28] LABS: Hematocrit 29.8 % (36.0-48.0); Hemoglobin 9.3 g/dL (12.0-16.0); Mean Corpuscular HGB Conc 31.2 g/dL (29.9-35.2); Mean Corpuscular Hemoglobin 28.7 pg (26.7-34.0); Mean Corpuscular Volume 92.0 fL (81.0-99.0); Platelet Count 188 10^3/uL (150-450); Red Blood Count 3.24 10^6/uL (4.20-5.40); White Blood Count 5.6 10^3/uL (4.0-11.0)
[2025-08-22 06:35] LABS: Anion Gap 16.0; Blood Urea Nitrogen 70.0 mg/dL (7.0-18.0); Calcium 8.3 mg/dL (8.5-10.1); Carbon Dioxide 27.4 mmol/L (21.0-32.0); Chloride 107 mmol/L (98-107); Estimated GFR (African America 23 (>=60 mL/min/1.73m^2); Estimated GFR (Non-African Ame 19 (>=60 mL/min/1.73m^2); Glucose 65 mg/dL (74-106); Potassium 4.4 mmol/L (3.5-5.1); Sodium 146 mmol/L (136-145)
[2025-08-22] MEDS: LEVOTHYROXINE SODIUM 125 MCG TABLET PO (07:11)
[2025-08-22] MEDS: METOPROLOL TARTRATE 25 MG TABLET 12.5 MG PO ×2 (08:48→22:33)
[2025-08-22] MEDS: NYSTATIN 15 GM POWDER 1 APPLIC TOPICAL (08:48)
[2025-08-22] MEDS: BUSPIRONE HCL 10 MG TABLET PO ×2 (08:48→22:33)
--- NOTE | 2025-08-22 09:43 | P.PN_ITS ---
Progress Note: Subjective Subjective Interval history: Patient is feeling somewhat better. She continues to report having subjective shortness of breath. Blood pressure had improved. She is on Lasix drip at 5 mg an hour, 2.5 mL an hour. She is on 5 L. Saturation 94%. Exam Narrative Exam Narrative: [pt is awake and alert. oriented to place, time and person, morbidly obese, mildly tachypneic at rest. Respiratory is about 20. HEENT: [place] conjunctiva and NL buccal mucosa Neck: Supple, no tenderness Endocrine: No Thyromegaly. Vascular: No JVD or carotid bruit. Lymphatic: No cervical lymphadenopathy. Chest: Some improvement of the bilateral crackles. Diminished breath sounds at the bases consistent with likely pleural effusion Heart IRRR, no extra sound or murmur. Abd: Soft, no tenderness, no rebound and no rigidity. Increase abd girth therefore clinically I could not exclude the possibility of intra abd mass or organomegaly. LE: No cyanosis or clubbing, no varices. Pitting edema involving her arms and legs. Neuro: A A O. Nl speech, comprehension and attention. Nl and symetrical motor and tone examination through out. Overall functional impairment secondary to obesity. Nonfocal deficit []] Constitutional Vital Signs, click to edit/add: Last Vital Signs Temp 97.6 F 08/22/25 04:00 Pulse 69 08/22/25 08:00 Resp 22 H 08/22/25 08:00 BP 127/78 08/22/25 08:00 Pulse Ox 94 L 08/22/25 08:00 O2 Del Method Nasal Cannula 08/22/25 08:00 O2 Flow Rate 5 08/22/25 08:00 FiO2 45 08/20/25 08:35 Progress Note: Objective Labs Labs: Short CBC 08/22/25 Range/Units 05:34 WBC 5.6 (4.0-11.0) 10^3/uL Hgb 9.3 L (12.0-16.0) g/dL Hct 29.8 L (36.0-48.0) % Plt Count 188 (150-450) 10^3/uL BMP 08/21/25 08/22/25 14:33 05:34 Sodium 140 146 H Potassium 4.7 4.4 Chloride 106 107 Carbon Dioxide 23.9 27.4 BUN 73.0 H 70.0 H Creatinine 2.59 H 2.44 H Glucose 104 65 L Calcium 7.9 L 8.3 L Progress Note: A&P Assessment and Plan (1) Acute exacerbation of CHF (congestive heart failure): (2) Acute UTI: (3) Bilateral pleural effusion: Plan Acute hypoxic respiratory failure with an oxygen saturation dropping to the 70s associated with tachypnea, respiratory distress and using accessory muscles Acute diastolic heart failure associated with interstitial edema and pleural effusion. Suspect underlying restrictive lung disease secondary to morbid obesity. Pleural effusion which is likely transudate secondary to heart failure and a low albumin level. Could not exclude exudative process such as malignancy Chronic hypoxic respiratory failure on 2 to 3 L of oxygen Continue Lasix drip. 5 mg an hour which is 2.5 mL an hour. Thus far, patient is 3 L negative balance. Monitor hemodynamics Hold amlodipine to allow for fluid removal. Monitor electrolytes and kidney function. Blood pressure had improved. Continues to require oxygen supplementation. She is on oxygen at home Peacock bag is full of urine. To be measured by nurse. Morning labs are pending. CARMELO/CKD currently stage IV. Patient typically has a stage III with a baseline creatinine around 1.6 Likely caused by cardiorenal syndrome Recent imaging of the kidneys does not show any obstructive uropathy. Continue diuresis. Morning labs are pending. Chronic atrial fibrillation. Rate is controlled on Xarelto. UTI associated with hypothermia, sepsis type picture Urine and blood cultures were drawn. Lactic is normal. Urine culture is positive for E. coli. Sensitivities pending. Blood cultures negative thus far. I started patient on ertapenem suspecting that she may have ESBL UTI. Morbid obesity Diet, exercise and lifestyle modification. I do not think she qualifies for gastric bypass given her age and her comorbidities. She may qualify for GLP-1. To be addressed by PCP in the outpatient setting. Anemia, no evidence of acute blood loss. Patient will likely require to have anemia workup to be done in the outpatient setting to be handled by PCP in collaboration with other needed outpatient providers. This may include but not limited to EGD, colonoscopy, referral to see hematology and other needed age-appropriate cancer screening. Noncompliance. Patient usually signs AMA as well as she feels slightly better I hope she does not do this at this time but ultimately I do not have legal authority to keep her in the hospital against her will. Functional impairment Initiate PT OT eval and treatment once she is medically safe and stable to do so. Chronic, subacute medical conditions not listed above, abnormal labs and imaging. These would need to be addressed. Could be addressed later on or in the outpatient setting by PCP collaboration with other needed outpatient providers when time and condition are appropriate. Goals of care discussion. Conversation lasted for 16 mins. Reviewed Long discussion with her on 08/21 and 08/22 regarding Kati's overall condition and frequent hospitalization as well as her functional decline. stated that he cannot take care of her at home. Kati has a decline a lot over the last several years up to a point that her is unable to manage her at home as described. We discussed different options of home health care versus short-term skilled versus short-term skilled followed by long-term residential living. We discussed her CODE STATUS. We discussed the option of hospice. He is not yet ready for hospice He is highly considering long-term custodial residential living. I will discuss this with case management. Urinary Catheter Management Urinary Catheter Management Urethral: Cath placed during this visit: yes Urethral indwelling: No Insertion date: 08/20/25 Insertion time: 09:14
[2025-08-22] MEDS: DIPHENOXYLATE HCL 2.5 MG/ATROPINE 0.025 MG TABLET 1 TAB PO ×2 (10:00→22:33)
[2025-08-22] MEDS: POTASSIUM CHLORIDE 10 MEQ ER TABLET PO ×2 (10:00→22:33)
[2025-08-22] MEDS: ERTAPENEM SODIUM 0.5 GM in 0.9 % SODIUM CHLORIDE 50 ML IV (14:29)
[2025-08-22] MEDS: FUROSEMIDE 400 MG in 0.9 % SODIUM CHLORIDE 160 ML IV (15:14)
[2025-08-22] MEDS: RIVAROXABAN 10 MG TABLET 15 MG PO (17:52)
[2025-08-22] MEDS: ZIPRASIDONE MESYLATE 20 MG VIAL 10 MG IM (18:24)
[2025-08-22] MEDS: WATER FOR INJECTION, STERILE 20 ML VIAL INJ (18:24)
[2025-08-23] VITALS (27 sets, daily range): BP systolic 98–159; BP diastolic 64–82; PULSE 43–76; RESP 16; TEMP 35.2–37.2; O2SAT 78–98
[2025-08-23] MEDS: ALPRAZOLAM 1 MG TABLET PO (01:41)
[2025-08-23 06:46] LABS: Anion Gap 13.9; Blood Urea Nitrogen 68.0 mg/dL (7.0-18.0); Calcium 8.5 mg/dL (8.5-10.1); Carbon Dioxide 29.5 mmol/L (21.0-32.0); Chloride 108 mmol/L (98-107); Estimated GFR (African America 26 (>=60 mL/min/1.73m^2); Estimated GFR (Non-African Ame 21 (>=60 mL/min/1.73m^2); Glucose 67 mg/dL (74-106); Potassium 4.4 mmol/L (3.5-5.1); Sodium 147 mmol/L (136-145)
[2025-08-23 06:52] LABS: NT Pro B Type Natriuretic Pept 7559.0 pg/mL (<=1800.0)
--- NOTE | 2025-08-23 07:00 | XR_ITS ---
[place] [id number] Patient Name: JOE CALL MRN: [id number] date: 1945 Sex: F Assigned Patient Location: [place] Current Patient Location: [place] Accession/Order Number: [id number] Exam Date: 08/23/2025 05:55 Report Date: 08/23/2025 11:32 At the request of: MARLA ROWELL MD Procedure: XR chest 1V PA CHEST: CLINICAL HISTORY: CHF, comparison to last COMPARISON: 08/20/2025 Enlarged cardiomediastinal silhouette with perihilar pulmonary vasculature and bibasilar opacities suggestive of atelectasis and or effusion. Left-sided effusion possibly layering along the left hemithorax XR/XR chest 1V IMPRESSION: No significant change in the perihilar pulmonary vascular congestion and effusions. Impression dictated by: Vargas Langston M.D. 08/23/2025 11:32 AM Dictation Location: [place] [id number] Electronically authenticated by: [id number] Y Date: 08/23/2025 11:32
--- NOTE | 2025-08-23 07:27 | PC.NURSE ---
patient heart rate dipping down into the 30's. RN went into room, patient feeling cool to the touch. temp reading 95. vital signs obtained. Oxygen saturation was reading 86%. Turned oxygen up to 6L NC, patient snoring and mouth breathing. Moved NC into patients mouth. Oxygen saturation increased to 94%. Patient wrapped in warm blankets. RN sternal rubbed patient and patient did respond but did not open her eyes. Heart rate reading in the 40's. BP reading 124/62. Will notify physician
[2025-08-23] MEDS: FLUMAZENIL 0.5 MG/5 ML VIAL IV ×2 (08:37→11:00)
[2025-08-23] MEDS: NYSTATIN 15 GM POWDER 1 APPLIC TOPICAL ×2 (10:01→21:34)
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
[2025-08-23] MEDS: FLU VACC TS2025-26(65YR UP)/PF 180 MCG/0.5 ML SYRINGE IM (11:17)
[2025-08-23] MEDS: DEXTROSE 50 %-WATER 25 GM/50 ML SYRINGE IV (16:12)
--- NOTE | 2025-08-23 17:14 | CT_ITS ---
[address] [address] Patient Name: JOE CALL MRN: [id number] date: 1945 Sex: F Assigned Patient Location: Current Patient Location: Accession/Order Number: [id number] Exam Date: 08/23/2025 17:38 Report Date: 08/23/2025 18:28 At the request of: MARLA ROWELL MD Procedure: CT chest wo con CT CHEST WITHOUT IV CONTRAST: CLINICAL HISTORY: Pleural effusion COMPARISON: Chest x-ray 08/23/2025 TECHNIQUE: Spiral images were obtained through the chest without IV contrast. This CT exam was performed using one or more following dose reduction techniques: Automated exposure control, adjustment of the mA and/or kV according to patient size, or use of iterative reconstruction technique. FINDINGS: There is extensive beam hardening artifact possibly caused by the arm positioning which degrades evaluation of the dependent lungs and upper abdominal structures. Mediastinum:Enlarged cardiac mediastinal silhouette with triple vessel coronary artery disease. No pericardial effusion. No definite bulky mediastinal or hilar adenopathy Lungs:Moderate right-sided moderate to large left-sided effusions with bibasilar airspace with areas of atelectasis. Mild interlobular septal thickening involving the remaining lungs with scattered pleural-parenchymal bands likely areas of subsegmental atelectasis and or scarring. Trachea and mainstem bronchi appear grossly patent.. No pneumothorax. Abd:[] No definite abnormal findings of the upper abdomen within the constraints of the artifact. Soft tissues/Bones: [Multilevel degenerative changes throughout the thoracic spine. No definite thoracic compression fracture.] CT/CT chest wo con IMPRESSION: Bilateral effusions moderate right moderate to large left with dependent basilar consolidation likely atelectasis. Interstitial pulmonary edema Impression dictated by: Vargas Langston M.D. 08/23/2025 6:28 PM Dictation Location: [place] [address] Electronically authenticated by: [id number] Y Date: 08/23/2025 18:28
[2025-08-23] MEDS: ZIPRASIDONE MESYLATE 20 MG VIAL 10 MG IM (19:49)
[2025-08-23 23:58] LABS: Allen Test POSITIVE (POSITIVE); HCO3 ABG 26.9 mmol/L (22.0-26.0); O2 Mode BIPAP; Oxygen Saturation ABG 94.5 %; PO2 ABG 69.1 mmHg (80.0-100.0)
[2025-08-23 23:59] LABS: BIPAP Pressure 20/8; Puncture Site R RADIAL
[2025-08-24] VITALS (10 sets, daily range): BP systolic 111–148; BP diastolic 68–77; PULSE 58–78; RESP 16; TEMP 35.7–36.4; O2SAT 92–100
[2025-08-24] LABS: ABG PCO2 51.2 mmHg (35.0-45.0)
[2025-08-24] MEDS: FUROSEMIDE 40 MG/4 ML VIAL 80 MG IVP
--- NOTE | 2025-08-24 | PM.EN ---
Event Note Event Note: Nurse Yadira notified me that pt was fine 30 mins ago, Sat 94 % without acute resp distress. Yadira went back 5 mins later to check up on her and found her in resp distress with sat at 78 %. No witnessed aspiration per nurse. Pt was placed on Bipap and requested ABGs. Nurse reported that pt has significant worsening of bilateral cracles that she did not have 5-10 mins earlier. 80 mg of Lasix was given. I called her Warren. I updated him on this sudden deterioration of condition on a top of progressive decline in her over all health over the last 6-8 months. Warren stated that she has been through a lot. She has been in and out of ER and hospital every few weeks. Warren stated that Kati is total care at home and her quality living is poor. Warren has been contemplating hospice for the last few days. Warren does not want Kati to suffer any longer. He wants to honor her previously declared wishes not to receive aggressive or heroic measures when it comes to this. He wants to respect her wishes and not to send her to half-way but he cannot take care of her at home any longer. Warren wants to change her code status to comfort care and seek hospice services. At this time, I will honor Kati wishes as relayed to me by her Warren. I will order DNRCC and request enrolment into hospice program for end of life care. I called nurse Yadira and notified her about plan of care.
--- NOTE | 2025-08-24 00:13 | PC.NURSE ---
At 2324, the nurse and aide did vitals on pt. 98.5 temp, pulse 75, BP 115/67, RR 22 and pt was 89% on 2L. We bumped pt up to 3L NC and she was 92%. At 2335, pts continuous o2 showed her at 78% on the 3L. Cut Out Press Operator, 2 RNs, and supervisor purification placed pt on 15L non rebreather, she was only 83%. Respiratory placed pt on bi-pap where she was 93%. Pts lungs were crackles throughout. Pt unresponsive, not responding to pain or sternal rub. Dr Stewart was messaged and he ordered 80mg lasix IV and ABGs. Pt has a critical co2 of 51.2. Dr Stewart called back and stated he talked to the and he wants to make the patient a DNR-CC, comfort care only. Pt is to stay on bipap and remain a med surg patient. Hospice will see patient tomorrow.
[2025-08-24 05:51] LABS: Hemoglobin 7.2 g/dL (12.0-16.0); Mean Corpuscular HGB Conc 31.2 g/dL (29.9-35.2); Mean Corpuscular Hemoglobin 29.5 pg (26.7-34.0); Mean Corpuscular Volume 94.7 fL (81.0-99.0); Platelet Count 225 10^3/uL (150-450); Red Blood Count 2.44 10^6/uL (4.20-5.40); White Blood Count 7.9 10^3/uL (4.0-11.0)
[2025-08-24 06:07] LABS: Alanine Aminotransferase 15 U/L (14-59); Albumin Globulin Ratio 0.4; Albumin Level 1.8 g/dL (3.4-5.0); Alkaline Phosphatase 160 U/L (46-116); Anion Gap 17.0; Aspartate Amino Transferase 16 U/L (15-37); Blood Urea Nitrogen 68.0 mg/dL (7.0-18.0); Calcium 8.3 mg/dL (8.5-10.1); Carbon Dioxide 24.1 mmol/L (21.0-32.0); Chloride 109 mmol/L (98-107); Estimated GFR (African America 23 (>=60 mL/min/1.73m^2); Estimated GFR (Non-African Ame 19 (>=60 mL/min/1.73m^2); Globulin 5.1 g/dL; Glucose 65 mg/dL (74-106); Potassium 5.1 mmol/L (3.5-5.1); Sodium 145 mmol/L (136-145); Total Protein 6.9 g/dL (6.4-8.2)
[2025-08-24] MEDS: WATER FOR INJECTION, STERILE 20 ML VIAL INJ (06:08)
[2025-08-24] MEDS: ZIPRASIDONE MESYLATE 20 MG VIAL 10 MG IM (06:08)
[2025-08-24 06:12] LABS: Hematocrit 23.1 % (36.0-48.0)
[2025-08-24] MEDS: DEXTROSE 50 %-WATER 25 GM/50 ML SYRINGE IV (06:22)
[2025-08-24] MEDS: FUROSEMIDE 20 MG/2 ML VIAL IVP (08:44)
[2025-08-24] MEDS: NYSTATIN 15 GM POWDER 1 APPLIC TOPICAL (08:45)
--- NOTE | 2025-08-24 10:13 | SWNOTE1 ---
SW received a message from Case Management and pt's would like referral sent to [facility]. Referral sent to [facility]. Referral included face sheet, ED note, H&P, provider notes, case management report, nursing notes, diagnostic imaging, med list, hospice order, and DNRCC order.
--- NOTE | 2025-08-24 10:15 | CM.NOTE ---
Rounds made with Dr. Clemons, discussed with family wishes and plan of care. Family verbalize wishes for Hospice care. Messaged SW for consult to Hospice.
--- NOTE | 2025-08-24 12:41 | CM.NOTE ---
[facility] called, they will meet with family at bedside between 2-2:30. Updated SW
--- NOTE | 2025-08-24 12:43 | SWNOTE1 ---
BIJAL received a call from [facility], case management answered phone, and Hospice is coming between 2:00-2:30pm. BIJAL did notify family in room. BIJAL also notified pt's nurse.
[2025-08-24] MEDS: MORPHINE SULFATE 2 MG/ML SYRINGE IV (13:44)
--- NOTE | 2025-08-24 14:50 | SWNOTE1 ---
SW spoke to Rachana from [facility] and pt is qualified to go to the inpt unit. Rachana will work on getting things set and update SW or nurse within the hour. Rachana will also set up transport.
--- NOTE | 2025-08-24 14:51 | SWNOTE1 ---
Pt's nurse is aware, SW notified physician.
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
--- NOTE | 2025-08-24 15:55 | SWNOTE1 ---
BIJAL reached out to pt's nurse and transport is set for 17:00. BIJAL took packet to the floor and provided nurse with number for report. BIJAL faxed dc med rec to [facility].
--- NOTE | 2025-08-24 16:33 | PC.NURSE ---
Report called to Michela LE with [facility] at 1620.
--- NOTE | 2025-08-24 17:45 | PC.NURSE ---
[facility] arrived at 1704 to transport patient to inpatient [facility]. [facility] left with patient at 1723 with paperwork and patient belongings.
--- OUTSIDE RECORDS SUMMARY | 2025-08-25 09:01 | XMS_ITS | CCD ---
Author Organization [facility] CliniSywy Care Team Providers Care Hvac R Instructor Name Role Phone UNKNOWN, PROVIDER Unavailable Unavailable UNKNOWN, PROVIDER Unavailable Unavailable NIC BRYAN Unavailable Unavailable Akbar Cui II Unavailable SHANTEL STEVEN Primary Care Physician [phone] Un[address] DR SHANTEL STEVEN Primary [...] Attending Provider MD Eloina Hussein Referring Provider Tuky, DO Jorge Luis Ross Emergency Provider MD Shantel Steven Primary Care Provider Tupa, DO Jorge Luis M Emergency Provider [phone] MD Shantel Steven Primary Care Provider MD Shantel Steven Attending Provider [phone] MD Shantel Steven Attending Provider Shantel Steven [...] Care Provider Mauri Chavira DO Admit Provider [phone] Ange Vergara MD Other Provider Renetta Trivedi MD Other Provider Kavin Escobar DO Attending Provider [phone] Zhang Norwood DO Emergency Provider Daniele Jane DO Emergency Provider Shantel Cho MD Primary Care Provider [phone] Zhang Norwood DO Emergency Provider [phone] Daniele Jane DO Emergency Provider Shantel Cho MD Primary Care Provider Shantel Steven MD Primary Care Provider Jorge Calix DO Emergency Provider [phone] Jorge Calix DO Emergency Provider Unavailable [...] Attending Provider Monica Stewart MD Attending Provider [phone] Shantel Steven MD Primary Care Provider Cheng Aviles APRN Attending Provider Wandy Alvarez CMA Attending Provider UnavailJarred Palacios DO Attending Provider Osbaldo Marlow MD Attending Provider YAMEL PANDYA Attending Unavailable RICA KAPLAN Attending Unavailable SABRINA LUNA Attending Unavailable SABRINA LUNA Attending Unavailable SABRINA LUNA Attending Unavailable SABRINA LUNA Attending Unavailable YAMEL PANDYA Attending Unavailable YAMEL PANDYA Attending Unavailable Shantel Steven MD Primary Care Provider Shantel Steven MD Attending Provider Provider, Outside Attending Provider Unavailable Shantel Steven MD Primary Care Provider Cheng Aviles APRN Attending Provider Jorge Luis Zavala DO Emergency Provider Chasity Castro MD Admit Provider Chasity Castro MD Attending Provider [phone] Shantel Steven MD Primary Care Provider Wandy Alvarez CMA Attending Provider Unavaila Lizett Donald APRN Attending Provider Shantel Steven MD Primary Care Provider Shantel Steven MD Attending Provider [phone] [place] DO Attending Provider [phone] Zhang Norwood Admitting Unavailable Zhang Norwood Attending Unavailable Tenisha, Shantel E Primary Care Unavailable Tenisha, Shantel E Primary Care Unavailable Daniele Jane Admitting Unavailable Daniele Jane Attending Unavailable [place] Admitting Unavailable [place] Attending Unavailable Shantel Steven E Primary Care Unavailable Shantel Steven Attending Unavailable Teinsha, Shantel E Admitting Unavailable Tenisha Shantel E Attending Unavailable Steven, Shantel E Admitting Unavailable Tenisha, Shantel E Primary Care Unavailable Gloria, Chasity Admitting Unavailable Chasity Castro Attending Unavailable Shantel Steven E Primary Care Unavailable Kavin Escobar Attending UnavailAnge Ty Consulting Unavailable Mauri Chavira Admitting Unavailable Steven, Shantel E Primary Care Unavailable Renetta Trivedi Consulting UnavailJorge Bardales Admitting Unavailable Jorge Calix Attending Unavailable Tenisha, Shantel E Primary Care Unavailable Allergies Allergy Classification Reported Allergen(s) Allergy Type Date of Onset Reaction(s) Facility (1 source) Iodine (And Iodine Containting Drugs) Drug allergy (disorder) 03-04-20 12 [facility] Repository (20 sources) Shellfish; Translations: [Shellfish] Food allergy (disorder) 03-04-20 12 rash, Eruption of skin (disorder) [facility] (20 sources) Sulfonamides (Antibiotic); Translations: [SULFA (SULFONAMIDE ANTIBIOTICS)] Drug allergy (disorder) 03-04-20 12 Rash [facility] (20 sources) Sulfacetamide Drug Allergy 02-15-20 24 diarrhea [facility] (20 sources) Contrast media; Translations: [contrast media (iodine-based)] Drug allergy 02-15-20 Unknown (qualifier value), Rash [facility] (6 sources) Sulfonamides (Antibiotic); Translations: [sulfa drugs] Drug allergy Diarrhea (finding) [facility] (2 sources) Glucosamine Drug Allergy [facility] Repository (2 sources) Iodine (And Iodine Containting Drugs) Drug allergy (disorder) 08-09-20 17 [facility] Repository (11 sources) Contrast media Propensity to adverse reactions 11-18-[address] DYE [facility] [employer] Other (20 sources) Iodine; Translations: [IODINE] Drug Allergy 10-30-20 14 Other, Unknown [employer] Other (20 sources) Substance with sulfonamide structure and antibacterial mechanism of action (substance) Drug allergy 10-30-20 14 Unknown [employer] Other (11 sources) Dyes Propensity to adverse reactions Comment:CT Dyes,Dyes,IVP Dyes [facility] [employer] Other (20 sources) Shellfish; Translations: [SHELLFISH DERIVED] Allergy to substance 10-30-20 14 [facility] (20 sources) Iodinated Contrast Media; Translations: [IODINATED CONTRAST MEDIA] Allergy to substance 02-15-20 [facility] (13 sources) metFORMIN; Translations: [METFORMIN HCL] Drug Allergy 07-03-20 24 [facility] (6 sources) Chocolate Flavoring Agent (Non-Screening) Propensity to adverse reactions 01-17-20 [facility] Work Phone: (12 sources) Shellfish-Derive d Products Drug Intolerance 03-15-20 18 [facility] (7 sources) Chocolate; Translations: [CHOCOLATE FLAVOR] Propensity to adverse reactions 01-17-20 [facility] Work Phone: (3 sources) gabapentin; Translations: [gabapentin] Drug Allergy 08-17-20 [facility] (1 source) Sulfacetamide Drug Allergy 08-17-20 [facility] Repository (1 source) Sulfonamides (Antibiotic) Drug allergy (disorder) 08-17-20 [facility] Repository Medications Current Medications Medication [...] 25, 2024 3:46pm Start: 07-27-2022 End: 03-25-2024 amantadine hydrochloride 100 mg oral capsule (1 source) Influenza A M2 Protein Inhibitor Start: 08-17-2025 ascorbic acid 226 mg / beta carotene 75134 unt / cuprous oxide 0.8 mg / dl-alpha tocopheryl acetate 200 unt / zinc oxide 34.8 mg oral capsule (11 sources) Vitamin C Start: 01-17-2024 Start: 01-17-2024 take 1 capsule by [facility] twice daily Vitamins A,C,Y-Okpk-Dwjfaq (Preservision Areds) 4,296 mcg-226 mg-90 mg capsule [...] polymyxin b sulfate 10 unt/mg ophthalmic ointment (5 sources) Aminoglycoside Antibacterial, Polymyxin-class Antibacterial, Corticosteroid Start: 07-20-2025 bumetanide 1 mg oral tablet (20 sources) Loop Diuretic Start: 08-01-2025 Start: 06-18-2024 End: 06-18-2025 cholecalciferol 0.125 mg ora l capsule (20 sources) Vitamin D Start: 02-19-2025 Start: 06-05-2024 End: 02-19-2025 Start: 01-17-2024 End: 06-05-2024 take 1 capsule by mo uth every [...] Daily, # 30 EA, Refills(s) 11, Pharmacy: [id number], 165.1, cm, 03/07/21 13:49:00 EDT, Height/Length Dosing, 121.8, kg, 03/07/21 13:49:00 EDT, Weight Dosing Start Date: 03/07/21 Status: Ordered Start: 03-07-2021 Questran 4 g/9 g oral powder = 1 packet(s), Oral, Daily, # 30 EA, Refills(s) 11, Pharmacy: [id number], 165.1, cm, 03/07/21 13:49:00 EDT, Height/Length [...] Glucose Scanning Reade r (Freestyle Familia 2 Una) misc (17 sources) Start: 09-10-2024 Flash Glucose Scanning Una (Freestyle Familia 2 Una) misc Active 0 .Route September 10, 2024 8:12am As directed Start: 09-10-2024 Flash Glucose Scanning Una (Freestyle Familia 2 Una) misc Active 0 .Route September 10, 2024 7:12am As directed Start: 07-16-2024 End: 09-10-2024 Flash Glucose Scanning Reade r (Freestyle Familia 2 Una) misc Discontinued 0 .Route July 16, 2024 12:00am September 10, 2024 8:13am As directed Start: 07-16-2024 End: 09-10-2024 Flash Glucose Scanning Reade r (Freestyle Familia 2 Una) misc Discontinued 0 .Route July 15, 2024 11:00pm September 10, 2024 7:13am As directed Start: 07-16-2024 Flash Glucose Scanning Una (Freestyle Familia 2 Una) misc Active 0 .Route July 16, 2024 [...] 100 mg t ablet Discontinued 0 [address] [id number] August 12, 2024 8:28am October 20, 2024 2:15pm TAKE 1 AND 1/2 TABLETS TWICE DAILY Start: 02-19-2024 End: 05-27-2024 Metoprolol Tartrate 100 mg t ablet Discontinued 0 .R[address]TE [address] February 19, 2024 2:51pm May 27, 2024 3:55pm TAKE 1 AND 1/2 TABLETS TWICE DAILY Start: 02-19-2024 End: 05-27-2024 Metoprolol Tartrate 100 mg t ablet Discontinued 0 [address] [id number] February 19, 2024 1:51pm May 27, 2024 2:55pm TAKE 1 AND 1/2 TABLETS TWICE DAILY Start: 02-19-2024 End: 05-27-2024 Metoprolol Tartrate Disconti nued 0 [address] [id number] February 19, 2024 2:51pm May 27, 2024 3:55pm TAKE 1 AND 1/2 TABLETS TWICE DAILY Start: 02-19-2024 Metoprolol Tar trate Active 0 [address] [id number] February 19, 2024 2:51pm TAKE 1 AND [...] End: 02-09-2025 take 0.5 tablet by m outh once [...] capsule Orally Once a day Active Vitamins A,C,Z-Ptsf-Kssrdy (Preservision Areds) 4,296 mcg-226 mg-90 mg capsule (18 sources) Start: 01-17-2024 take 1 capsule by mouth twice daily Vitamins A,C,K-Inuh-Ftvuua (Preservision Areds) 4,296 mcg-226 mg-90 mg capsule Active 1 CAP PO Twice daily January 17, 2024 12:00am Start: 01-17-2024 take 1 capsule by mo [facility] twice daily Vitamins A,C,O-Wrhx-Psxnqk (Preservision Areds) 4,296 mcg-226 mg-90 mg capsule [...] 12, 2021 12:00am June 19, 2021 3:13am [id number] 200 actuat albuter ol 0.09 mg/actuat metered [...] day Not-Taking amLODIPine 5 mg oral tablet (16 sources) Dihydropyridine Cal[employer] Khadijah Start: 025 End: amylase 953237 unt / lipase 27647 unt / protease 08485 unt delayed release oral capsule (20 sources) Start: 021 End: 021 Start: 06-11-2021 End: 06-19-2021 Hsvuvm-Oacmrapd-Eklthlf (Cre on) 24,000-76,000 -120,000 unit capsule,delayed release(DR/EC) Discontinued 1 - 2 CAP PO 1-2 TIMES DAILY June 11, 2021 12:00am June 19, 2021 3:12am Start: 05-10-2021 Creon 24,000 u nits oral delayed release capsule See Instructions, take 3 caps with each meal and 2 caps with each snack., # 390 caplet(s), Refills(s) 0, Pharmacy: [id number], 165.1, cm, 04/18/21 13:02:00 EDT, Height/Length [...] End: 04-03-2024 take 1 capsule by [facility] every twenty-four hours Biotin [...] Cotransporter 2 Inhibitor Start: 01-22-2024 End: 04-03-2024 [facility] Active Dapagliflozin Pr opanediol 10 MG 1 tablet once a day Active diclofenac sodium 0.01 mg/mg topical gel (20 sources) Nonsteroidal Anti-inflammatory Drug Start: 10-20-2024 End: 11-03-2024 24 hr dilTIAZem hydrochlorid e 120 mg extended release oral tablet (20 sources) Calcium Channel Khadijah Start: 02-19-2025 End: 06-04-2025 Start: 07-27-2022 take 1 capsule by [facility] once daily diltiazem 120 mg oral capsule, extended release 120 mg = 1 cap(s), Oral, Daily, Refills(s) 0 Start Date: 07/27/22 Status: Ordered Start: 06-19-2021 End: 02-09-2025 End: 07-22-2024 take 1 tablet by mouth in the morning dilTIAZem (Cardizem) 120 MG immediate release tablet Take 120 mg by mouth in the morning. 07/22/2024 Discontinued (Duplicate order) take 1 capsule by [facility] every twelve hours dilTIAZem HCl [...] 01-06-2025 Start: 01-07-2023 take 1 tablet by [facility] every twenty-four hours Famotidine 20 MG 1 [...] Active magnesium oxide 400 mg oral tablet (19 sources) Start: 02-09-2025 End: 03-12-2025 meloxicam 15 [...] nitrofurantoin, macrocrystal s 100 mg oral capsule (14 sources) Nitrofuran Antibacterial Start: 03-24-2025 End: 04-21-2025 [...] 2024 12:06pm July 16, 2024 10:36am Nystatin [id number] UNIT/GM 1 application Externally Twice a day for 10 days Active Nystatin 462724 UNIT/GM 1 application Externally Twice a day for 10 days Active nystatin 283381 unt/ml / triamcinolone acetonide 1 mg/ml topical [...] June 05, 2024 11:06am swish and swallow [place] 2-Cwi-Tvp-Fish Oil (Fish Oil) 1,000 mg (120 mg-180 mg) capsule (19 sources) Start: 01-17-2024 End: 04-03-2024 take 1 capsule by mouth once daily [place] 9-Fho-Jig-Fish Oil (Fish Oil) 1,000 mg (120 mg-180 mg) capsule Discontinued 1 CAP PO Daily January 17, 2024 12:00am April 03, 2024 10:49am Start: 01-17-2024 End: 04-03-2024 take 1 capsule by mouth once daily [place] 7-Czj-Ebl-Fish Oil (Fish Oil) 1,000 mg (120 mg-180 mg) capsule Discontinued 1 CAP PO Daily January 17, 2024 1:00am April 03, 2024 11:49am Start: 01-17-2024 take 1 capsule by mo 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] Onset: 2 [...] as recurrent; Translations: [Clostridium difficile diarrhea] Episodic Malaise and fatigue (20 sources) Weakness; [...] sources) Long-term current use of insulin; 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] Onset: 4 Resolved: 4 01-17-2024 Episodic Other aftercare (1 source) Other penitentiary (current) drug therapy; Translations: [OTH CHECKER/STOCKER CURRENT DRUG THERAPY] Onset: 3 Episodic Other aftercare (1 source) half-way (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 anticoagulants; Translations: [SENIOR LIVING CURRNT USE 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] Onset: 3 Episodic Other [...] Onset: 2 07-03-2024 Chronic Other eye disorders (12 sources) Hemorrhage of right vitreous body; Translations: [...] 4 06-16-2024 Episodic Other nervous system disorders (16 sources) Impairment of balance; Translations: [Other abnormalities of gait and mobility] Onset: 4 07-08-2024 Episodic Other nervous system disorders (2 sources) [...] Chronic Other nutritional; endocrine; and metabolic disorders (18 sources) Severe obesity; Translations: [Class 3 severe [...] [Disorientation, unspecified] 10-28-2024 Episodic Residual codes; unclassified (14 sources) Confusional state; Translations: [Disorientation, unspecified] 06-04-2025 Episodic Residual codes; unclassified (3 sources) Hallucinations; Translations: [Hallucinations, unspecified] 08-11-2025 Episodic Respiratory failure; insufficiency; arrest (adult) (4 sources) Dependence on supplemental oxygen; Translations: [Dependence on supplemental oxygen] 08-05-2025 Chronic Respiratory failure; insufficiency; arrest (adult) (2 sources) Acute respiratory failure; Translations: [Acute respiratory failure [...] Date Episodic/Chronic Acute and unspecified renal failure (20 sources) Acute kidney failure, unspecified; Translations: [Acute renal failure syndrome] Onset: 05-20-2024 Episodic Cancer of breast (18 sources) History of malignant neoplasm of breast; Translations: [Personal history of malignant neoplasm of breast] Onset: 03-20-2012 07-27-2022 Episodic Cardiac dysrhythmias (20 sources) Bradycardia; Translations: [Bradycardia, unspecified] Onset: 10-16-2024 10-20-2024 Episodic Conditions associated with dizziness or vertigo (16 sources) Dizziness; Translations: [Dizziness and giddiness] Onset: 03-12-2025 03-12-2025 Episodic Fluid and electrolyte disorders (20 sources) Dehydration; Translations: [Hypokalemia] Onset: 01-09-2023 Episodic Genitourinary symptoms and ill-defined conditions (20 sources) Dysuria; Translations: [Dysuria] Onset: 10-16-2024 07-17-2024 Episodic Noninfectious gastroenteritis (20 sources) Chronic diarrhea; Translations: [Noninfective gastroenteritis and colitis, unspecified] Onset: 01-16-2023 07-27-2022 Episodic Other aftercare (5 sources) half-way (current) use of insulin; Translations: [SENIOR LIVING CURRENT USE OF INSULIN] Onset: 01-16-2023 Episodic [...] Onset: 01-01-2023 Episodic Other nervous system disorders (12 sources) [...] [Other specified postprocedural states] Onset: 10-16-2024 Episodic Spondylosis; intervertebral disc disorders; other back problems (20 sources) Chronic low back pain; Translations: [Post-surgery back pain] Onset: 01-16-2023 07-27-2022 Episodic Results Test Name Value Interpretation Reference Range Facility Basophils Auto (Bld) [#/Vol] Ordered By: [place] on 08-20-2025 Basophils (Bld) [#/Vol] 0.0 10 3/uL 0.0-0.1 [facility] Basophils/100 WBC Auto (Bld) Ordered By: [place] on 08-20-2025 Basophils/100 WBC (Bld) 0.7 % 0.2-2.0 [facility] Eosinophils/100 WBC Auto (Bl d)Ordered By: [place] on 08-20-2025 Eosinophils/100 WBC (Bld) 1.8 % 0.9-7.0 [facility] Erythrocyte distribution wid th Auto (RBC) [Ratio]Ordered By: [place] on 08-20-2025 Erythrocyte distribution width (RBC) [Ratio] 16.2 % High 11.0-15.0 [facility] Globulin Calc (S) [Mass/Vol] Ordered By: [place] on 08-20-2025 Globulin (S) [Mass/Vol] 5.6 g/dL [facility] Glomerular filtration rate ( GFR) estimation in non- AmericanOrdered By: [place] on 08-20-2025 GFR/1.73 sq M.predicted among non-blacks MDRD (S/P/Bld) [Vol rate/Area] 19 mL/min/{1.73_m2} Low >=60 mL/min/1.73 m 2 [facility] Hematocrit Auto (Bld) [Volum e fraction]Ordered By: [place] on 08-20-2025 Hematocrit (Bld) [Volume fraction] 29.8 % Low 36.0-48.0 [facility] Hemoglobin [Mass/volume] in BloodOrdered By: [place] on 08-20-2025 Hemoglobin (Bld) [Mass/Vol] 9.4 g/dL Low 12.0-16.0 [facility] Leukocytes [#/volume] correc gali for nucleated erythrocytes in Blood by Automated counOrdered By: [place] on 08-20-2025 WBC corrected for nucl RBC Auto (Bld) [#/Vol] 4.5 10 3/uL 4.0-11.0 [facility] Lymphocytes Auto (Bld) [#/Vo l]Ordered By: [place] on 08-20-2025 Lymphocytes (Bld) [#/Vol] 0.7 10 3/uL Low 1.2-3.8 [facility] Lymphocytes/100 WBC Auto (Bl d)Ordered By: [place] on 08-20-2025 Lymphocytes/100 WBC (Bld) 15.7 % Low 20.5-60.0 [facility] MCH Auto (RBC) [Entitic mass ]Ordered By: [place] on 08-20-2025 MCH (RBC) [Entitic mass] 29.4 pg 26.7-34.0 [facility] MCHC Auto (RBC) [Mass/Vol]Or dered By: [place] on 08-20-2025 MCHC (RBC) [Mass/Vol] 31.5 g/dL 29.9-35.2 [facility] MCV Auto (RBC) [Entitic vol] Ordered By: [place] on 08-20-2025 MCV (RBC) [Entitic vol] 93.1 fL 81.0-99.0 [facility] Monocytes Auto (Bld) [#/Vol] Ordered By: [place] on 08-20-2025 Monocytes (Bld) [#/Vol] 0.3 10 3/uL 0.3-0.8 [facility] Monocytes/100 WBC Auto (Bld) Ordered By: [place] on 08-20-2025 Monocytes/100 WBC (Bld) 7.6 % 1.7-12.0 [facility] Neutrophils Auto (Bld) [#/Vo l]Ordered By: [place] on 08-20-2025 Neutrophils (Bld) [#/Vol] 3.3 10 3/uL 1.4-6.5 [facility] Neutrophils/100 WBC Auto (Bl d)Ordered By: [place] on 08-20-2025 Neutrophils/100 WBC (Bld) 74.0 % 43.0-75.0 [facility] No Panel InformationOrdered By: [place] on 08-20-2025 YES-[facility] NONE SEEN #/LPF NONE SEEN [facility] None Seen #/HPF None Seen [facility] LARGE #/HPF Abnormal NONE SEEN [facility] Negative NEGATIVE [facility] SMALL Abnormal NEGATIVE [facility] CLOUDY Abnormal CLEAR [facility] LT. YELLOW YELLOW [facility] NONE SEEN NONE SEEN [facility] 5.5 5.0-9.0 [facility] >=300 mg/dL Abnormal NEG/TRACE [facility] 0-2 #/HPF 0-2 [facility] 1.025 1.005-1.025 [facility] RARE #/LPF NONE/RARE [facility] 0.2 EU/dL 0.2-1.0 [facility] >100 #/HPF Abnormal NONE SEEN [facility] 0.4 mmol/L 0.4-2.0 [facility] 6428.0 pg/mL Critically high <=1800.0 [facility] 13.5 pg/mL 4.0-51.3 [facility] 54.5 mm[Hg] High 40.0-52.0 [facility] 7.280 Low 7.330-7.430 [facility] 2.2 g/dL Low 3.4-5.0 [facility] 0.1 10 3/uL 0.0-0.7 [facility] 177 U/L High 46-116 [facility] 23 U/L 14-59 [facility] 20 U/L 15-37 [facility] 30.4 [facility] 0.01 10 3/uL 0.00-0.03 [facility] 73.0 mg/dL High 7.0-18.0 [facility] 0.2 % 0.0-0.5 [facility] 8.2 mg/dL Low 8.5-10.1 [facility] 107 mmol/L 98-107 [facility] 27.4 mmol/L 21.0-32.0 [facility] 2.40 mg/dL High 0.55-1.02 [facility] 24 Low >=60 mL/min/1.73 m 2 [facility] 166 mg/dL High 74-106 [facility] 4.7 mmol/L 3.5-5.1 [facility] 144 mmol/L 136-145 [facility] 0.4 mg/dL 0.2-1.0 [facility] 7.8 g/dL 6.4-8.2 [facility] Platelet mean volume Auto (B ld) [Entitic vol]Ordered By: [place] on 08-20-2025 Platelet mean volume (Bld) [Entitic vol] 11.2 fL 9.5-13.5 [facility] Platelets Auto (Bld) [#/Vol] Ordered By: [place] on 08-20-2025 Platelets (Bld) [#/Vol] 170 10 3/uL 150-450 [facility] RBC Auto (Bld) [#/Vol]Ordere d By: [place] on 08-20-2025 RBC (Bld) [#/Vol] 3.20 10 6/uL Low 4.20-5.40 [facility] Serum or plasma albumin/glob ulin mass ratioOrdered By: [place] on 08-20-2025 Albumin/Globulin [Mass ratio] 0.4 {ratio} [facility] Serum or plasma anion gap de terminationOrdered By: [place] on 08-20-2025 Anion gap [Moles/Vol] 14.3 mmol/L [facility] Urine Cultureon 08-20-2025 Bacteria identified Cx Nom (U) ORGANISM: Escherichia coli (O:ESCCOL) [place] Count >100,000 Aerobic MIRTHA Charge (NMIC56) - SUSCEPTIBILITY ORGANISM: O:ESCCOL ANTIBIOTIC INTERPRETATION MIRTHA Amikacin S <16 Amoxacillin/K Clavulanate S <8 Ampicillin S <8 Ampicillin/Sulbactam S <4 Aztreonam S <4 Cefazolin S <2 Cefepime S <2 Ceftazidime S <1 Ceftazidime/Avibactam S <4 Ceftolozane/Tazobactam S <2 Ceftriaxone S <1 Cefuroxime S <4 Ciprofloxacin S <0.25 Ertapenem S <0.5 Gentamicin S <2 Levofloxacin S <0.5 Meropenem S <1 Meropenem/Vaborbactam S <2 Nitrofurantoin S <32 Piperacillin/Tazobactam S <8 Tetracycline S <4 Tigecycline S <2 [...] RESISTANT TO ALL B-LACTAM DRUGS. PERFORMED BY: [facility] [address] [place] [address] PATHOLOGIST CONFIGURATION MANAGEMENT ANALYST SIMON LINTON M.D. Normal [facility] Comment on above: Performed By: #### C UU ####[facility] [id number] [facility] Basic Metabolic Panelon 07-14 Creatinine Clr Calc Pharmacy 29.80 Normal [facility] Comment on above: Result Comment: PERF ORMED BY: [place] [id number] PATHOLOGIST CONFIGURATION MANAGEMENT ANALYST SIMON LINTON M.D. Performed By: #### B MAINTENANCE TEAM MEMBER, HS TROP, PT, CBC, BMP #### [address] GFR/1.73 sq M.predicted MDRD (S/P/Bld) [Vol rate/Area] 25.401 mL/min/{1.73_m2} Normal [facility] Comment on above: Performed By: #### B MAINTENANCE TEAM MEMBER, HS TROP, PT, CBC, BMP #### [address] Calcium [Mass/volume] in Ser um or PlasmaOrdered By: Chasity Castro on 08-01-2025 Calcium [Mass/Vol] 8.2 mg/dL Low 8.6-10.3 [facility] Comment on above: Performed By: #### B MAINTENANCE TEAM MEMBER, HS TROP, PT, CBC, BMP #### [address] Capillary blood glucose wander urement by glucometer (mass/volume)Ordered By: Chasity Castro on 08-01-2025 Glucose [Mass/Vol] 136 mg/dL Normal [facility] Comment on above: Result Comment: [place] Glucose Reference Range is dependent on time and content of last meal. Glucose of more than 200 mg/dL in a nonstressed, ambulatory subject supports the diagnosis of Diabetes Mellitus. PERFORMED BY: [facility] [address] [place] [address] PATHOLOGIST CONFIGURATION MANAGEMENT ANALYST SIMON LINTON M.D. Performed By: #### B MAINTENANCE TEAM MEMBER, HS TROP, PT, CBC, BMP #### [facility] [address] [place] [address] [place] Carbon dioxide, total [Moles /volume] in Serum or PlasmaOrdered By: Chasity Castro on 08-01-2025 CO2 [Moles/Vol] 26.0 mmol/L Normal 21.0-31.0 [facility] Comment on above: Performed By: #### B MAINTENANCE TEAM MEMBER, HS TROP, PT, CBC, BMP #### [facility] [address] [place] [address] [place] Chloride [Moles/volume] in S oziel or PlasmaOrdered By: Chasity Castro on 08-01-2025 Chloride [Moles/Vol] 107 mmol/L Normal 98-107 [facility] Comment on above: Performed By: #### B MAINTENANCE TEAM MEMBER, HS TROP, PT, CBC, BMP #### [facility] [address] Creatinine [Mass/volume] in Serum or PlasmaOrdered By: Chasity Castro on 08-01-2025 Creatinine [Mass/Vol] 1.97 mg/dL High 0.60-1.20 [facility] Comment on above: Performed By: #### B MAINTENANCE TEAM MEMBER, HS TROP, PT, CBC, BMP #### [facility] [address] [place] [address] [place] Glomerular filtration rate [ Volume Rate/Area] in Serum, Plasma or Blood by CreatinineOrdered By: Chasity Castro on 08-01-2025 Glomerular filtration rate [Volume Rate/Area] in Serum, Plasma or Blood by Creatinine 25.401 mL/Min [facility] Glucose Poct Glucometerson 0 08-01-2025 Glucose [Mass/Vol] 110 mg/dL Normal [facility] Comment on above: Result Comment: [place] Glucose Reference Range is dependent on time and content of last meal. Glucose of more than 200 mg/dL in a nonstressed, ambulatory subject supports the diagnosis of Diabetes Mellitus. PERFORMED BY: [place] [address] PATHOLOGIST CONFIGURATION MANAGEMENT ANALYST SIMON LINTON M.D. Performed By: #### G MICK ####Point of Care testing, Glucose [Mass/volume] in Ser um or PlasmaOrdered By: Chasity Castro on 08-01-2025 Glucose [Mass/Vol] 132 mg/dL High 70-100 [facility] Comment on above: Result Comment: [facility] Glucose Reference Range is dependent on time and content of last meal. Glucose of more than 200 mg/dL in a nonstressed, ambulatory subject supports the diagnosis of Diabetes Mellitus. ADA recommended reference range Performed By: #### B MAINTENANCE TEAM MEMBER, HS TROP, PT, CBC, BMP #### [facility] [address] No Panel InformationOrdered By: Chasity Castro on 08-01-2025 29.80 [facility] Potassium [Moles/volume] in Serum or PlasmaOrdered By: Chasity Castro on 08-01-2025 Potassium [Moles/Vol] 4.9 mmol/L Normal 3.5-5.1 [facility] Comment on above: Performed By: #### B MAINTENANCE TEAM MEMBER, HS TROP, PT, CBC, BMP #### [facility] [address] Serum or plasma anion gap de terminationOrdered By: Chasity Castro on 08-01-2025 Anion gap [Moles/Vol] 12.9 mmol/L Normal 6.0-15.0 [facility] Comment on above: Performed By: #### B MAINTENANCE TEAM MEMBER, HS TROP, PT, CBC, BMP #### [facility] [address] Sodium [Moles/volume] in Ser um or PlasmaOrdered By: Chasity Castro on 08-01-2025 Sodium [Moles/Vol] 141 mmol/L Normal 136-145 [facility] Comment on above: Performed By: #### B MAINTENANCE TEAM MEMBER, HS TROP, PT, CBC, BMP #### [facility] [address] Urea nitrogen [Mass/volume] in Serum or PlasmaOrdered By: Chasity Castro on 08-01-2025 Urea nitrogen [Mass/Vol] 48 mg/dL High 7-25 [facility] Comment on above: Performed By: #### B MAINTENANCE TEAM MEMBER, HS TROP, PT, CBC, BMP #### [facility] [address] BNP ser/plasOrdered By: Chasity Castro on 07-31-2025 Natriuretic peptide B (Bld) [Mass/Vol] 503.0 pg/mL High 5-100 [facility] Comment on above: Order Comment: Comme nt add Result Comment: PERF ORMED BY: [place] [address] PATHOLOGIST CONFIGURATION MANAGEMENT ANALYST SIMON LINTON M.D. Performed By: #### B MAINTENANCE TEAM MEMBER, HS TROP, PT, CBC, BMP #### [facility] [address] Basic Metabolic Panelon 07-13 Anion gap [Moles/Vol] 10.6 mmol/L Normal 6.0-15.0 [facility] Comment on above: Performed By: #### G LULS #### Point of Care testing , Calcium [Mass/Vol] 8.1 mg/dL Low 8.6-10.3 [facility] Comment on above: Performed By: #### G LULS #### Point of Care testing , Chloride [Moles/Vol] 110 mmol/L High 98-107 [facility] Comment on above: Performed By: #### G LULS #### Point of Care testing , CO2 [Moles/Vol] 27.9 mmol/L Normal 21.0-31.0 [facility] Comment on above: Performed By: #### G LULS #### Point of Care testing , Creatinine [Mass/Vol] 1.86 mg/dL High 0.60-1.20 [facility] Comment on above: Performed By: #### G LULS #### Point of Care testing , Creatinine Clr Calc Pharmacy 31.39 Normal [facility] Comment on above: Result Comment: PERF ORMED BY: [place] [address] PATHOLOGIST CONFIGURATION MANAGEMENT ANALYST SIMON LINTON M.D. Performed By: #### G LULS #### Point of Care testing , GFR/1.73 sq M.predicted MDRD (S/P/Bld) [Vol rate/Area] 27.214 mL/min/{1.73_m2} Normal [facility] Comment on above: Performed By: #### G LULS #### Point of Care testing , Glucose [Mass/Vol] 98 mg/dL Normal 70-100 [facility] Comment on above: Result Comment: [facility] Glucose Reference Range is dependent on time and content of last meal. Glucose of more than 200 mg/dL in a nonstressed, ambulatory subject supports the diagnosis of Diabetes Mellitus. ADA recommended reference range Performed By: #### G LULS #### Point of Care testing , Potassium [Moles/Vol] 4.5 mmol/L Normal 3.5-5.1 [facility] Comment on above: Performed By: #### G LULS #### Point of Care testing , Sodium [Moles/Vol] 144 mmol/L Normal 136-145 [facility] Comment on above: Performed By: #### G LULS #### Point of Care testing , Urea nitrogen [Mass/Vol] 49 mg/dL High 7-25 [facility] Comment on above: Performed By: #### G LULS #### Point of Care testing , Basophils [#/volume] in Bloo d by Automated countOrdered By: Chasity Castro on 07-31-2025 Basophils (Bld) [#/Vol] 0.1 10*3/uL Normal 0.0-0.2 [facility] Comment on above: Result Comment: PERF ORMED BY: [facility] [address] [place] [address] PATHOLOGIST CONFIGURATION MANAGEMENT ANALYST SIMON LINTON M.D. Performed By: #### G LULS #### Point of Care testing , Basophils/100 leukocytes in Blood by Automated countOrdered By: Chasity Castro on 07-31-2025 Basophils/100 WBC (Bld) 1.5 % Normal . [facility] Comment on above: Performed By: #### G LULS #### Point of Care testing , Complete Blood Count Auto Di ffon 07-31-2025 Mean Corpuscular HGB Conc 32.9 g/dL Normal 32.0-35.0 [facility] Comment on above: Performed By: #### G LULS #### Point of Care testing , NRBC% 0.2 /100{WBC} Normal 0-0.5 [facility] Comment on above: Performed By: #### G LULS #### Point of Care testing , White Blood Count 4.8 [CFU]/mL Normal 3.8-11.6 [facility] Comment on above: Performed By: #### G LULS #### Point of Care testing , Eosinophils [#/volume] in Bl ood by Automated countOrdered By: Chasity Castro on 07-31-2025 Eosinophils (Bld) [#/Vol] 0.1 10*3/uL Normal 0.0-0.45 [facility] Comment on above: Performed By: #### G LULS #### Point of Care testing , Eosinophils/100 leukocytes i n Blood by Automated countOrdered By: Chasity Castro on 07-31-2025 Eosinophils/100 WBC (Bld) 1.5 % Normal . [facility] Comment on above: Performed By: #### G LULS #### Point of Care testing , Erythrocyte distribution wid th [Ratio] by Automated countOrdered By: Chasity Castro on 07-31-2025 Erythrocyte distribution width (RBC) [Ratio] 17.0 % High 11.9-15.3 [facility] Comment on above: Performed By: #### G LULS #### Point of Care testing , Erythrocytes [#/volume] in B lood by Automated countOrdered By: Chasity Castro on 07-31-2025 RBC (Bld) [#/Vol] 3.53 10*6/uL Low 3.60-5.00 [facility] Comment on above: Performed By: #### G LULS #### Point of Care testing , Glucose Poct Glucometerson 0 07-31-2025 Glucose [Mass/Vol] 115 mg/dL Normal [facility] Comment on above: Result Comment: [place] Glucose Reference Range is dependent on time and content of last meal. Glucose of more than 200 mg/dL in a nonstressed, ambulatory subject supports the diagnosis of Diabetes Mellitus. PERFORMED BY: [place] [address] PATHOLOGIST CONFIGURATION MANAGEMENT ANALYST SIMON LINTON M.D. Performed By: #### G LULS #### Point of Care testing , Glucose [Mass/Vol] 122 mg/dL Normal [facility] Comment on above: Result Comment: [place] Glucose Reference Range is dependent on time and content of last meal. Glucose of more than 200 mg/dL in a nonstressed, ambulatory subject supports the diagnosis of Diabetes Mellitus. PERFORMED BY: [place] [address] PATHOLOGIST CONFIGURATION MANAGEMENT ANALYST SIMON LINTON M.D. Performed By: #### B MAINTENANCE TEAM MEMBER, HS TROP, PT, CBC, BMP #### [address] Glucose [Mass/Vol] 143 mg/dL Normal [facility] Comment on above: Result Comment: [place] Glucose Reference Range is dependent on time and content of last meal. Glucose of more than 200 mg/dL in a nonstressed, ambulatory subject supports the diagnosis of Diabetes Mellitus. PERFORMED BY: [place] [address] PATHOLOGIST CONFIGURATION MANAGEMENT ANALYST SIMON LINTON M.D. Performed By: #### G LULS #### Point of Care testing , Glucose [Mass/Vol] 118 mg/dL Normal [facility] Comment on above: Result Comment: [place] Glucose Reference Range is dependent on time and content of last meal. Glucose of more than 200 mg/dL in a nonstressed, ambulatory subject supports the diagnosis of Diabetes Mellitus. PERFORMED BY: [place] [address] PATHOLOGIST CONFIGURATION MANAGEMENT ANALYST SIMON LINTON M.D. Performed By: #### G LULS #### Point of Care testing , Hematocrit [Volume Fraction] of Blood by Automated countOrdered By: Chasity Castro on 07-31-2025 Hematocrit (Bld) [Volume fraction] 31.7 % Low 34.0-46.4 [facility] Comment on above: Performed By: #### G LULS #### Point of Care testing , Hemoglobin [Mass/volume] in BloodOrdered By: Chasity Castro on 07-31-2025 Hemoglobin (Bld) [Mass/Vol] 10.4 g/dL Low 11.8-15.4 [facility] Comment on above: Performed By: #### G LULS #### Point of Care testing , Leukocytes [#/volume] correc gali for nucleated erythrocytes in Blood by Automated counOrdered By: Chasity Castro on 07-31-2025 WBC corrected for nucl RBC Auto (Bld) [#/Vol] 4.8 10*3/uL 3.8-11.6 [facility] Leukocytes [#/volume] in Blo od by Automated countOrdered By: Chasity Castro on 07-31-2025 WBC (Bld) [#/Vol] 4.8 10*3/uL Normal 3.8-11.6 [facility] Comment on above: Performed By: #### G LULS #### Point of Care testing , Lymphocytes [#/volume] in Bl ood by Automated countOrdered By: Chasity Castro on 07-31-2025 Lymphocytes (Bld) [#/Vol] 0.9 10*3/uL Low 1.00-4.8 [facility] Comment on above: Performed By: #### G LULS #### Point of Care testing , Lymphocytes/100 leukocytes i n Blood by Automated countOrdered By: Chasity Castro on 07-31-2025 Lymphocytes/100 WBC (Bld) 17.9 % Normal . [facility] Comment on above: Performed By: #### G LULS #### Point of Care testing , MCH [Entitic mass] by Automa gali countOrdered By: Chasity Castro on 07-31-2025 MCH (RBC) [Entitic mass] 29.4 pg Normal 24.7-34.3 [facility] Comment on above: Performed By: #### G LULS #### Point of Care testing , MCHC Auto (RBC) [Mass/Vol]Or dered By: Chasity Castro on 07-31-2025 MCHC (RBC) [Mass/Vol] 32.9 g/dL 32.0-35.0 [facility] MCV [Entitic volume] by Auto mated countOrdered By: Chasity Castro on 07-31-2025 MCV (RBC) [Entitic vol] 89.6 fL Normal 80-100 [facility] Comment on above: Performed By: #### G LULS #### Point of Care testing , Monocytes [#/volume] in Bloo d by Automated countOrdered By: Chasity Castro on 07-31-2025 Monocytes (Bld) [#/Vol] 0.4 10*3/uL Normal 0.0-0.8 [facility] Comment on above: Performed By: #### G LULS #### Point of Care testing , Monocytes/100 leukocytes in Blood by Automated countOrdered By: Chasity Castro on 07-31-2025 Monocytes/100 WBC (Bld) 7.7 % Normal . [facility] Comment on above: Performed By: #### G LULS #### Point of Care testing , Neutrophils [#/volume] in Bl ood by Automated countOrdered By: Chasity Castro on 07-31-2025 Neutrophils (Bld) [#/Vol] 3.4 10*3/uL Normal 1.8-7.7 [facility] Comment on above: Performed By: #### G LULS #### Point of Care testing , Neutrophils/100 leukocytes i n Blood by Automated countOrdered By: Chasity Castro on 07-31-2025 Neutrophils/100 WBC (Bld) 71.4 % Normal . [facility] Comment on above: Performed By: #### G LULS #### Point of Care testing , Nucleated erythrocytes [Pres ence] in Blood by Automated countOrdered By: Chasity Castro on 07-31-2025 Nucleated RBC Auto Ql (Bld) 0.2 /100{WBC} 0-0.5 [facility] Platelet mean volume [Entiti c volume] in Blood by Automated countOrdered By: Chasity Castro on 07-31-2025 Platelet mean volume (Bld) [Entitic vol] 8.9 fL Normal 6.3-10.7 [facility] Comment on above: Performed By: #### G LULS #### Point of Care testing , Platelets [#/volume] in Bloo d by Automated countOrdered By: Chasity Castro on 07-31-2025 Platelets (Bld) [#/Vol] 185 10*3/uL Normal 150-450 [facility] Comment on above: Performed By: #### G LULS #### Point of Care testing , X-ray reportOrdered By: Kirit Langston on 07-31-2025 Study report [facility] Work Phone: XR chest 2V*on 07-31-2025 XR chest 2V* [facility] [place] [address] XRay Report Signed Patient: Joe Call MR#: [id number] 0 : 1945 Acct:[id number] Age/Sex: 80 / F ADM Date: 07/29/25 Loc: Room: [address] [place] [address] Type: ADM IN Attending Dr: Chasity Castro [...] Langston M.D. 07/31/2025 8:10 PM Dictation Location: [place] [address] Transcribed By: [facility] 07/31/252009 Dictated By: Vargas Langston MD 07/31/252008 Signed By: 07/31/252009 Normal [facility] Basic Metabolic Panelon 07-13 Anion gap [Moles/Vol] 10.6 mmol/L Normal 6.0-15.0 [facility] Comment on above: Performed By: #### G LULS #### Point of Care testing , Calcium [Mass/Vol] 7.9 mg/dL Low 8.6-10.3 [facility] Comment on above: Performed By: #### G LULS #### Point of Care testing , Chloride [Moles/Vol] 110 mmol/L High 98-107 [facility] Comment on above: Performed By: #### G LULS #### Point of Care testing , CO2 [Moles/Vol] 29.1 mmol/L Normal 21.0-31.0 [facility] Comment on above: Performed By: #### G LULS #### Point of Care testing , Creatinine [Mass/Vol] 1.90 mg/dL High 0.60-1.20 [facility] Comment on above: Performed By: #### G LULS #### Point of Care testing , Creatinine Clr Calc Pharmacy 31.06 Normal [facility] Comment on above: Result Comment: PERF ORMED BY: [address] [place] [address] PATHOLOGIST CONFIGURATION MANAGEMENT ANALYST SIMON LINTON M.D. Performed By: #### G LULS #### Point of Care testing , GFR/1.73 sq M.predicted MDRD (S/P/Bld) [Vol rate/Area] 26.528 mL/min/{1.73_m2} Normal [facility] Comment on above: Performed By: #### G LULS #### Point of Care testing , Glucose [Mass/Vol] 94 mg/dL Normal 70-100 [facility] Comment on above: Result Comment: [place] Glucose Reference Range is dependent on time and content of last meal. Glucose of more than 200 mg/dL in a nonstressed, ambulatory subject supports the diagnosis of Diabetes Mellitus. ADA recommended reference range Performed By: #### G LULS #### Point of Care testing , Potassium [Moles/Vol] 4.7 mmol/L Normal 3.5-5.1 [facility] Comment on above: Performed By: #### G LULS #### Point of Care testing , Sodium [Moles/Vol] 145 mmol/L Normal 136-145 [facility] Comment on above: Performed By: #### G LULS #### Point of Care testing , Urea nitrogen [Mass/Vol] 52 mg/dL High 7-25 [facility] Comment on above: Performed By: #### G LULS #### Point of Care testing , Complete Blood Count Auto Di ffon 07-30-2025 Basophils (Bld) [#/Vol] 0.1 10*3/uL Normal 0.0-0.2 [facility] Comment on above: Result Comment: PERF ORMED BY: [facility] [address] [place] [address] PATHOLOGIST CONFIGURATION MANAGEMENT ANALYST SIMON LINTON M.D. Performed By: #### G LULS #### Point of Care testing , Basophils/100 WBC (Bld) 1.8 % Normal . [facility] Comment on above: Performed By: #### G LULS #### Point of Care testing , Eosinophils (Bld) [#/Vol] 0.1 10*3/uL Normal 0.0-0.45 [facility] Comment on above: Performed By: #### G LULS #### Point of Care testing , Eosinophils/100 WBC (Bld) 1.6 % Normal . [facility] Comment on above: Performed By: #### G LULS #### Point of Care testing , Erythrocyte distribution width (RBC) [Ratio] 16.8 % High 11.9-15.3 [facility] Comment on above: Performed By: #### G LULS #### Point of Care testing , Hematocrit (Bld) [Volume fraction] 30.8 % Low 34.0-46.4 [facility] Comment on above: Performed By: #### G LULS #### Point of Care testing , Hemoglobin (Bld) [Mass/Vol] 10.0 g/dL Low 11.8-15.4 [facility] Comment on above: Performed By: #### G LULS #### Point of Care testing , Lymphocytes (Bld) [#/Vol] 0.8 10*3/uL Low 1.00-4.8 [facility] Comment on above: Performed By: #### G LULS #### Point of Care testing , Lymphocytes/100 WBC (Bld) 17.9 % Normal . [facility] Comment on above: Performed By: #### G LULS #### Point of Care testing , MCH (RBC) [Entitic mass] 29.4 pg Normal 24.7-34.3 [facility] Comment on above: Performed By: #### G LULS #### Point of Care testing , MCV (RBC) [Entitic vol] 90.9 fL Normal 80-100 [facility] Comment on above: Performed By: #### G LULS #### Point of Care testing , Mean Corpuscular HGB Conc 32.4 g/dL Normal 32.0-35.0 [facility] Comment on above: Performed By: #### G LULS #### Point of Care testing , Monocytes (Bld) [#/Vol] 0.4 10*3/uL Normal 0.0-0.8 [facility] Comment on above: Performed By: #### G LULS #### Point of Care testing , Monocytes/100 WBC (Bld) 8.9 % Normal . [facility] Comment on above: Performed By: #### G LULS #### Point of Care testing , Neutrophils (Bld) [#/Vol] 3.3 10*3/uL Normal 1.8-7.7 [facility] Comment on above: Performed By: #### G LULS #### Point of Care testing , Neutrophils/100 WBC (Bld) 69.8 % Normal . [facility] Comment on above: Performed By: #### G LULS #### Point of Care testing , NRBC% 0.1 /100{WBC} Normal 0-0.5 [facility] Comment on above: Performed By: #### G LULS #### Point of Care testing , Platelet mean volume (Bld) [Entitic vol] 9.0 fL Normal 6.3-10.7 [facility] Comment on above: Performed By: #### G LULS #### Point of Care testing , Platelets (Bld) [#/Vol] 185 10*3/uL Normal 150-450 [facility] Comment on above: Performed By: #### G LULS #### Point of Care testing , RBC (Bld) [#/Vol] 3.39 10*6/uL Low 3.60-5.00 [facility] Comment on above: Performed By: #### G LULS #### Point of Care testing , WBC (Bld) [#/Vol] 4.7 10*3/uL Normal 3.8-11.6 [facility] Comment on above: Performed By: #### G LULS #### Point of Care testing , White Blood Count 4.7 [CFU]/mL Normal 3.8-11.6 [facility] Comment on above: Performed By: #### G LULS #### Point of Care testing , ECH echo transthoracicon ECH echo transthoracic [facility] [place] [address] Echocardiogram Signed Patient: Joe Call MR#: [id number] 0 : 1945 Acct:[id number] Age/Sex: 80 / F ADM Date: 07/29/25 Loc: Room: [address] [place] [address] Type: ADM IN Attending Dr: Chasity Castro MD Ordering Provider: Chasity Castro MD Date of Service: 07/29/25 ECH/ECH echo transthoracic: chf Copies to: Yumiko Alex MD, FACC Chasity Castro MD RVT BSA: 2.2 m2 BP: 132/76 mmHg HR: 74 Reason For Study: chf History: CHF [place] AFib Bradycardia CKD HTN HLD DM TN Interpretation Summary Moderate to severe concentric left [...] FAC (more content not included)... Normal [facility] Glucose Poct Glucometerson 0 07-30-2025 Glucose [Mass/Vol] 149 mg/dL Normal [facility] Comment on above: Result Comment: [facility] Glucose Reference Range is dependent on time and content of last meal. Glucose of more than 200 mg/dL in a nonstressed, ambulatory subject supports the diagnosis of Diabetes Mellitus. PERFORMED BY: [place] [address] PATHOLOGIST CONFIGURATION MANAGEMENT ANALYST SIMON LINTON M.D. Performed By: #### B MAINTENANCE TEAM MEMBER, HS TROP, PT, CBC, BMP #### [address] Glucose [Mass/Vol] 138 mg/dL Normal [facility] Comment on above: Result Comment: [place] Glucose Reference Range is dependent on time and content of last meal. Glucose of more than 200 mg/dL in a nonstressed, ambulatory subject supports the diagnosis of Diabetes Mellitus. PERFORMED BY: [place] [address] PATHOLOGIST CONFIGURATION MANAGEMENT ANALYST SIMON LINTON M.D. Performed By: #### G LULS #### Point of Care testing , Commemt1 Glu2: Cleaned Meter Normal [facility] Comment on above: Result Comment: PERF ORMED BY: [place] [address] PATHOLOGIST CONFIGURATION MANAGEMENT ANALYST SIMON LINTON M.D. Performed By: #### G LULS #### Point of Care testing , Glucose [Mass/Vol] 161 mg/dL Normal [facility] Comment on above: Result Comment: [place] om Glucose Reference Range is dependent on time and content of last meal. Glucose of more than 200 mg/dL in a nonstressed, ambulatory subject supports the diagnosis of Diabetes Mellitus. Performed By: #### G LULS #### Point of Care testing , Commemt1 Glu2: Cleaned Meter Normal [facility] Comment on above: Result Comment: PERF ORMED BY: [place] [address] PATHOLOGIST CONFIGURATION MANAGEMENT ANALYST SIMON LINTON M.D. Performed By: #### B MAINTENANCE TEAM MEMBER, HS TROP, PT, CBC, BMP #### [address] Glucose [Mass/Vol] 99 mg/dL Normal [facility] Comment on above: Result Comment: [place] om Glucose Reference Range is dependent on time and content of last meal. Glucose of more than 200 mg/dL in a nonstressed, ambulatory subject supports the diagnosis of Diabetes Mellitus. Performed By: #### B MAINTENANCE TEAM MEMBER, HS TROP, PT, CBC, BMP #### [facility] [address] [place] [address] No Panel InformationOrdered By: Chasity Castro on 07-30-2025 Glu2: cleaned meter [facility] BNP ser/plasOrdered By: Pilo Zavala on 07-29-2025 Natriuretic peptide B (Bld) [Mass/Vol] 709.0 pg/mL High 5-100 [facility] Comment on above: Result Comment: PERF ORMED BY: [place] [address] PATHOLOGIST CONFIGURATION MANAGEMENT ANALYST SIMON LINTON M.D. Performed By: #### B MAINTENANCE TEAM MEMBER, HS TROP, PT, CBC, BMP #### [address] Basic Metabolic Panelon 07-13 Creatinine Clr Calc Pharmacy 31.42 Normal [facility] Comment on above: Result Comment: PERF ORMED BY: [place] [address] PATHOLOGIST CONFIGURATION MANAGEMENT ANALYST SIMON LINTON M.D. Performed By: #### B MAINTENANCE TEAM MEMBER, HS TROP, PT, CBC, BMP #### [address] GFR/1.73 sq M.predicted MDRD (S/P/Bld) [Vol rate/Area] 27.569 mL/min/{1.73_m2} Normal [facility] Comment on above: Performed By: #### B MAINTENANCE TEAM MEMBER, HS TROP, PT, CBC, BMP #### [address] Basophils [#/volume] in Bloo d by Automated countOrdered By: Jorge Luis Zavala on 07-29-2025 Basophils (Bld) [#/Vol] 0.1 10*3/uL Normal 0.0-0.2 [facility] Comment on above: Result Comment: PERF ORMED BY: [place] [address] PATHOLOGIST CONFIGURATION MANAGEMENT ANALYST SIMON LINTON M.D. Performed By: #### B MAINTENANCE TEAM MEMBER, HS TROP, PT, CBC, BMP #### [address] Basophils/100 leukocytes in Blood by Automated countOrdered By: Jorge Luis Zavala on 07-29-2025 Basophils/100 WBC (Bld) 1.3 % Normal . [facility] Comment on above: Performed By: #### B MAINTENANCE TEAM MEMBER, HS TROP, PT, CBC, BMP #### [facility] [address] Calcium [Mass/volume] in Ser um or PlasmaOrdered By: Jorge Luisgabrielle Zavala on 07-29-2025 Calcium [Mass/Vol] 8.1 mg/dL Low 8.6-10.3 [facility] Comment on above: Performed By: #### B MAINTENANCE TEAM MEMBER, HS TROP, PT, CBC, BMP #### [facility] [address] Capillary blood glucose wander urement by glucometer (mass/volume)Ordered By: Jorge Luis Zavala on 07-29-2025 Glucose [Mass/Vol] 72 mg/dL Normal [facility] Comment on above: Result Comment: [facility] Glucose Reference Range is dependent on time and content of last meal. Glucose of more than 200 mg/dL in a nonstressed, ambulatory subject supports the diagnosis of Diabetes Mellitus. Performed By: #### B MAINTENANCE TEAM MEMBER, HS TROP, PT, CBC, BMP #### [facility] [address] Carbon dioxide, total [Moles /volume] in Serum or PlasmaOrdered By: Jorge Luis Zavala on 07-29-2025 CO2 [Moles/Vol] 28.8 mmol/L Normal 21.0-31.0 [facility] Comment on above: Performed By: #### B MAINTENANCE TEAM MEMBER, HS TROP, PT, CBC, BMP #### [address] Chloride [Moles/volume] in S oziel or PlasmaOrdered By: Jorge Luis Zavala on 07-29-2025 Chloride [Moles/Vol] 110 mmol/L High 98-107 [facility] Comment on above: Performed By: #### B MAINTENANCE TEAM MEMBER, HS TROP, PT, CBC, BMP #### [facility] [address] Complete Blood Count Auto Di ffon 07-29-2025 Mean Corpuscular HGB Conc 32.6 g/dL Normal 32.0-35.0 [facility] Comment on above: Performed By: #### B MAINTENANCE TEAM MEMBER, HS TROP, PT, CBC, BMP #### [facility] [address] [place] [address] [place] Monocytes/100 WBC (Bld) 18.19 % Normal 0.00-20.00 [facility] Comment on above: Performed By: #### B MAINTENANCE TEAM MEMBER, HS TROP, PT, CBC, BMP #### [facility] [address] NRBC% 0.1 /100{WBC} Normal 0-0.5 [facility] Comment on above: Performed By: #### B MAINTENANCE TEAM MEMBER, HS TROP, PT, CBC, BMP #### [facility] [address] White Blood Count 6.0 [CFU]/mL Normal 3.8-11.6 [facility] Comment on above: Performed By: #### B MAINTENANCE TEAM MEMBER, HS TROP, PT, CBC, BMP #### [facility] [address] Creatinine [Mass/volume] in Serum or PlasmaOrdered By: Jorge Luis Zavala on 07-29-2025 Creatinine [Mass/Vol] 1.84 mg/dL High 0.60-1.20 [facility] Comment on above: Performed By: #### B MAINTENANCE TEAM MEMBER, HS TROP, PT, CBC, BMP #### [facility] [address] ECG 12 lead ECGon 07-29-2025 ECG 12 lead ECG [facility] [place] [address] [place] [address] Electrocardiograph Report Signed Patient: Joe Call MR#: [id number] 0 : 1945 Acct:[id number] Age/Sex: 80 / F ADM Date: 07/29/25 Loc: ER Room: Type: [facility] ER Attending Dr: Ordering Provider: Jorge Luis Zavala DO Date of Service: 07/29/25 ECG/ECG 12 lead [...] Jorge Luis Zavala DO 1327 Normal [facility] Eosinophils [#/volume] in Bl ood by Automated countOrdered By: Jorge Luis Zavala on 07-29-2025 Eosinophils (Bld) [#/Vol] 0.1 10*3/uL Normal 0.0-0.45 [facility] Comment on above: Performed By: #### B MAINTENANCE TEAM MEMBER, HS TROP, PT, CBC, BMP #### [facility] [address] Eosinophils/100 leukocytes i n Blood by Automated countOrdered By: Jorge Luis Zavala on 07-29-2025 Eosinophils/100 WBC (Bld) 1.7 % Normal . [facility] Comment on above: Performed By: #### B MAINTENANCE TEAM MEMBER, HS TROP, PT, CBC, BMP #### [facility] [address] Erythrocyte distribution wid th [Ratio] by Automated countOrdered By: Jorge Luis Zavala on 07-29-2025 Erythrocyte distribution width (RBC) [Ratio] 17.5 % High 11.9-15.3 [facility] Comment on above: Performed By: #### B MAINTENANCE TEAM MEMBER, HS TROP, PT, CBC, BMP #### [facility] [address] [place] [address] [place] Erythrocytes [#/volume] in B lood by Automated countOrdered By: Jorge Luis Zavala on 07-29-2025 RBC (Bld) [#/Vol] 3.48 10*6/uL Low 3.60-5.00 [facility] Comment on above: Performed By: #### B MAINTENANCE TEAM MEMBER, HS TROP, PT, CBC, BMP #### [facility] [address] [place] [address] [facility] Glomerular filtration rate [ Volume Rate/Area] in Serum, Plasma or Blood by CreatinineOrdered By: Jorge Luis Zavala on 07-29-2025 Glomerular filtration rate [Volume Rate/Area] in Serum, Plasma or Blood by Creatinine 27.569 mL/Min [facility] Glucose Poct Glucometerson 0 07-29-2025 Commemt1 Glu2: Cleaned Meter Normal [facility] Comment on above: Result Comment: PERF ORMED BY: [place] [address] PATHOLOGIST CONFIGURATION MANAGEMENT ANALYST SIMON LINTON M.D. Performed By: #### B MAINTENANCE TEAM MEMBER, HS TROP, PT, CBC, BMP #### [place] [id number] [facility] Glucose [Mass/Vol] 153 mg/dL Normal [facility] Comment on above: Result Comment: [place] om Glucose Reference Range is dependent on time and content of last meal. Glucose of more than 200 mg/dL in a nonstressed, ambulatory subject supports the diagnosis of Diabetes Mellitus. Performed By: #### B MAINTENANCE TEAM MEMBER, HS TROP, PT, CBC, BMP #### [place] [id number] [facility] Commemt1 Glu2: Cleaned Meter Normal [facility] Comment on above: Result Comment: PERF ORMED BY: [place] [address] PATHOLOGIST CONFIGURATION MANAGEMENT ANALYST SIMON LINTON M.D. Performed By: #### B MAINTENANCE TEAM MEMBER, HS TROP, PT, CBC, BMP #### [facility] [address] [place] [address] [place] Glucose [Mass/volume] in Ser um or PlasmaOrdered By: Jorge Luis Zavala on 07-29-2025 Glucose [Mass/Vol] 85 mg/dL Normal 70-100 [facility] Comment on above: Result Comment: [place] om Glucose Reference Range is dependent on time and content of last meal. Glucose of more than 200 mg/dL in a nonstressed, ambulatory subject supports the diagnosis of Diabetes Mellitus. ADA recommended reference range Performed By: #### B MAINTENANCE TEAM MEMBER, HS TROP, PT, CBC, BMP #### [address] Hematocrit [Volume Fraction] of Blood by Automated countOrdered By: Jorge Luis Zavala on 07-29-2025 Hematocrit (Bld) [Volume fraction] 31.5 % Low 34.0-46.4 [facility] Comment on above: Performed By: #### B MAINTENANCE TEAM MEMBER, HS TROP, PT, CBC, BMP #### [address] Hemoglobin [Mass/volume] in BloodOrdered By: Jorge Luis Zavala on 07-29-2025 Hemoglobin (Bld) [Mass/Vol] 10.3 g/dL Low 11.8-15.4 [facility] Comment on above: Performed By: #### B MAINTENANCE TEAM MEMBER, HS TROP, PT, CBC, BMP #### [address] INR in Platelet poor plasma by Coagulation assayOrdered By: Jorge Luis Zavala on 07-29-2025 INR Coag (PPP) [Relative time] 1.4 {INR} Normal [facility] Comment on above: Result Comment: INR [...] heart valves: 3 - 4.5 PERFORMED BY: [place] [address] PATHOLOGIST CONFIGURATION MANAGEMENT ANALYST SIMON LINTON M.D. Performed By: #### B MAINTENANCE TEAM MEMBER, HS TROP, PT, CBC, BMP #### [address] Leukocytes [#/volume] correc gali for nucleated erythrocytes in Blood by Automated counOrdered By: Jorge Luis Zavala on 07-29-2025 WBC corrected for nucl RBC Auto (Bld) [#/Vol] 6.0 10*3/uL 3.8-11.6 [facility] Leukocytes [#/volume] in Blo od by Automated countOrdered By: Jorge Luis Zavala on 07-29-2025 WBC (Bld) [#/Vol] 6.0 10*3/uL Normal 3.8-11.6 [facility] Comment on above: Performed By: #### B MAINTENANCE TEAM MEMBER, HS TROP, PT, CBC, BMP #### [facility] [address] [place] [address] [place] Lymphocytes [#/volume] in Bl ood by Automated countOrdered By: Jorge Luis Zavala on 07-29-2025 Lymphocytes (Bld) [#/Vol] 0.8 10*3/uL Low 1.00-4.8 [facility] Comment on above: Performed By: #### B MAINTENANCE TEAM MEMBER, HS TROP, PT, CBC, BMP #### [facility] [address] [place] [address] Lymphocytes/100 leukocytes i n Blood by Automated countOrdered By: Jorge Luis Zavala on 07-29-2025 Lymphocytes/100 WBC (Bld) 13.6 % Normal . [facility] Comment on above: Performed By: #### B MAINTENANCE TEAM MEMBER, HS TROP, PT, CBC, BMP #### [facility] [address] [place] [address] MCH [Entitic mass] by Automa gali countOrdered By: Jorge Luis Zavala on 07-29-2025 MCH (RBC) [Entitic mass] 29.6 pg Normal 24.7-34.3 [facility] Comment on above: Performed By: #### B MAINTENANCE TEAM MEMBER, HS TROP, PT, CBC, BMP #### [facility] [address] [place] [address] MCHC Auto (RBC) [Mass/Vol]Or dered By: Jorge Luis Zavala on 07-29-2025 MCHC (RBC) [Mass/Vol] 32.6 g/dL 32.0-35.0 [facility] MCV [Entitic volume] by Auto mated countOrdered By: Jorge Luis Zavala on 07-29-2025 MCV (RBC) [Entitic vol] 90.7 fL Normal 80-100 [facility] Comment on above: Performed By: #### B MAINTENANCE TEAM MEMBER, HS TROP, PT, CBC, BMP #### [facility] [address] Magnesium [Mass/volume] in S oziel or PlasmaOrdered By: Chasity Castro on 07-29-2025 Magnesium [Mass/Vol] 1.7 mg/dL Low 1.9-2.7 [facility] Comment on above: Order Comment: Abbie nt add Performed By: #### B MAINTENANCE TEAM MEMBER, HS TROP, PT, CBC, BMP #### [facility] [address] Monocyte distribution width [Entitic volume] in Blood by AutomatedOrdered By: Jorge Luis Zavala on 07-29-2025 Monocyte distribution width Auto (Bld) [Entitic vol] 18.19 % 0.00-20.00 [facility] Monocytes [#/volume] in Bloo d by Automated countOrdered By: Jorge Luis Zavala on 07-29-2025 Monocytes (Bld) [#/Vol] 0.4 10*3/uL Normal 0.0-0.8 [facility] Comment on above: Performed By: #### B MAINTENANCE TEAM MEMBER, HS TROP, PT, CBC, BMP #### [place] [address] [place] Monocytes/100 leukocytes in Blood by Automated countOrdered By: Jorge Luis Zavala on 07-29-2025 Monocytes/100 WBC (Bld) 7.4 % Normal . [facility] Comment on above: Performed By: #### B MAINTENANCE TEAM MEMBER, HS TROP, PT, CBC, BMP #### [facility] [address] [place] [address] [place] Neutrophils [#/volume] in Bl ood by Automated countOrdered By: Jorge Luis Zavala on 07-29-2025 Neutrophils (Bld) [#/Vol] 4.5 10*3/uL Normal 1.8-7.7 [facility] Comment on above: Performed By: #### B MAINTENANCE TEAM MEMBER, HS TROP, PT, CBC, BMP #### [facility] [address] [place] [address] [place] Neutrophils/100 leukocytes i n Blood by Automated countOrdered By: Jorge Luis Zavala on 07-29-2025 Neutrophils/100 WBC (Bld) 76.0 % Normal . [facility] Comment on above: Performed By: #### B MAINTENANCE TEAM MEMBER, HS TROP, PT, CBC, BMP #### [facility] [address] No Panel InformationOrdered By: Jorge Luis Zavala on 07-29-2025 Glu2: cleaned meter [facility] 31.42 [facility] Nucleated erythrocytes [Pres ence] in Blood by Automated countOrdered By: Jorge Luis Zavala on 07-29-2025 Nucleated RBC Auto Ql (Bld) 0.1 /100{WBC} 0-0.5 [facility] Platelet mean volume [Entiti c volume] in Blood by Automated countOrdered By: Jorge Luis Zavala on 07-29-2025 Platelet mean volume (Bld) [Entitic vol] 9.0 fL Normal 6.3-10.7 [facility] Comment on above: Performed By: #### B MAINTENANCE TEAM MEMBER, HS TROP, PT, CBC, BMP #### [facility] [address] [place] [address] Platelets [#/volume] in Bloo d by Automated countOrdered By: Jorge Luis Zavala on 07-29-2025 Platelets (Bld) [#/Vol] 218 10*3/uL Normal 150-450 [facility] Comment on above: Performed By: #### B MAINTENANCE TEAM MEMBER, HS TROP, PT, CBC, BMP #### [facility] [address] [place] [address] Potassium [Moles/volume] in Serum or PlasmaOrdered By: Jorge Luis Zavala on 07-29-2025 Potassium [Moles/Vol] 5.1 mmol/L Normal 3.5-5.1 [facility] Comment on above: Result Comment: Hemo lysis is present at a level that could interfere with the result. Contact lab if redraw is required Performed By: #### B MAINTENANCE TEAM MEMBER, HS TROP, PT, CBC, BMP #### [facility] [address] [place] [address] Prothrombin time (PT)Ordered By: Jorge Luis Zavala on 07-29-2025 PT Coag (PPP) [Time] 15.8 s High 9.0-12.9 [facility] Comment on above: Result Comment: A he matocrit value greater than 55% may lead to inaccurate results in coagulation testing. Patients having hematocrit values >55% require a special collection tube for coagulation studies. Please contact the laboratory at [phone] for redraw instructions. Performed By: #### B MAINTENANCE TEAM MEMBER, HS TROP, PT, CBC, BMP #### [facility] [address] [place] [address] Serum or plasma anion gap de terminationOrdered By: Jorge Luis Zavala on 07-29-2025 Anion gap [Moles/Vol] 9.3 mmol/L Normal 6.0-15.0 [facility] Comment on above: Performed By: #### B MAINTENANCE TEAM MEMBER, HS TROP, PT, CBC, BMP #### [facility] [address] [place] [address] Sodium [Moles/volume] in Ser um or PlasmaOrdered By: Jorge Luis Zavala on 07-29-2025 Sodium [Moles/Vol] 143 mmol/L Normal 136-145 [facility] Comment on above: Performed By: #### B MAINTENANCE TEAM MEMBER, HS TROP, PT, CBC, BMP #### [address] Thyrotropin [Units/volume] i n Serum or PlasmaOrdered By: Chasity Castro on 07-29-2025 TSH Qn 8.18 m[IU]/L High 0.45-5.33 [facility] Comment on above: Order Comment: Comme nt add Result Comment: PERF ORMED BY: [place] [address] PATHOLOGIST CONFIGURATION MANAGEMENT ANALYST SIMON LINTON M.D. Performed By: #### B MAINTENANCE TEAM MEMBER, HS TROP, PT, CBC, BMP #### [address] Troponin I High Sensitivityo n 07-29-2025 Troponin I High Sensitivity 13 Normal 0-15 [facility] Comment on above: Result Comment: The Troponin units of report have been changed to meet the Chest Pain Accreditation requirement, element EC5.M1l2. Troponin units are changed from pg/ml to ng/L. Also, the decimal is removed and results are in whole numbers. PERFORMED BY: [place] [address] PATHOLOGIST CONFIGURATION MANAGEMENT ANALYST SIOMN LINTON M.D. Performed By: #### B MAINTENANCE TEAM MEMBER, HS TROP, PT, CBC, BMP #### [facility] [address] [place] [address] Troponin I.cardiac [Mass/vol ume] in Serum or Plasma by Detection limit <= 0.01 ng/mLOrdered By: Jorge Luis Zavala on 07-29-2025 Troponin I.cardiac DL <= 0.01 ng/mL [Mass/Vol] 13 ng/L 0- [facility] Urea nitrogen [Mass/volume] in Serum or PlasmaOrdered By: Jorge Luis Zavala on 07-29-2025 Urea nitrogen [Mass/Vol] 51 mg/dL High 7- [facility] Comment on above: Performed By: #### B MAINTENANCE TEAM MEMBER, HS TROP, PT, CBC, BMP #### [facility] [address] [place], [place] [id number] [facility] X-ray reportOrdered By: Kirit Langston on 07-29-2025 Study report [facility] Work Phone: XR chest 2V*on 07-29-2025 XR chest 2V* [facility] Main [place] [address] [place] [address] XRay Report Signed Patient: Joe Call MR#: [id number] 0 : 1945 Acct:[id number] Age/Sex: 80 / F ADM Date: 07/29/25 Loc: ER Room: Type: [facility] ER Attending Dr: Copies to: Jorge Luis [...] Langston M.D. 07/29/2025 11:43 AM Dictation Location: [facility]- Transcribed By: [facility] 07/29/25 1143 Dictated By: Vargas Langston MD 07/29/25 1142 Signed By: 07/29/25 1143 Normal [facility] Glomerular filtration rate ( GFR) estimation in non- AmericanOrdered By: Monica Stewart on 07-23-2025 GFR/1.73 sq M.predicted among non-blacks MDRD (S/P/Bld) [Vol rate/Area] 30 mL/min/{1.73_m2} Low >=60 mL/min/1.73 m 2 [facility] No Panel InformationOrdered By: Monica Stewart on 07-23-2025 70.7 pg/mL 0.0-285.2 [facility] 25.0 [facility] 41.0 mg/dL High 7.0-18.0 [facility] 8.3 mg/dL Low 8.5-10.1 [facility] 109 mmol/L High 98-107 [facility] 27.5 mmol/L 21.0-32.0 [facility] 1.64 mg/dL High 0.55-1.02 [facility] 37 Low >=60 mL/min/1.73 m 2 [facility] 151 mg/dL High 74-106 [facility] 4.4 mmol/L 3.5-5.1 [facility] 144 mmol/L 136-145 [facility] Renin activityOrdered By: Ra mustapha Stewart on 07-23-2025 Renin (P) [Catalytic activity/Vol] 0.242 ng/mL/hr 0.167-5.380 [facility] Serum or plasma aldosterone measurement (mass/volume)Ordered By: Monica Stewart on 07-23-2025 Aldosterone [Mass/Vol] 2.6 ng/dL 0.0-30.0 [facility] Serum or plasma anion gap de terminationOrdered By: Monica Stewart on 07-23-2025 Anion gap [Moles/Vol] 11.9 mmol/L [facility] Serum or plasma free metanep hrine measurement (mass/volume)Ordered By: Monica Stewart on 07-23-2025 Metanephrine Free [Mass/Vol] <25.0 pg/mL 0.0-88.0 [facility] Basophils Auto (Bld) [#/Vol] Ordered By: Shantel Steven on 07-22-2025 Basophils (Bld) [#/Vol] 0.1 10 3/uL 0.0-0.1 [facility] Basophils/100 WBC Auto (Bld) Ordered By: Shantel Steven on 07-22-2025 Basophils/100 WBC (Bld) 1.0 % 0.2-2.0 [facility] Eosinophils/100 WBC Auto (Bl d)Ordered By: Shantel Steven on 07-22-2025 Eosinophils/100 WBC (Bld) 2.3 % 0.9-7.0 [facility] Erythrocyte distribution wid th Auto (RBC) [Ratio]Ordered By: Shantel Steven on 07-22-2025 Erythrocyte distribution width (RBC) [Ratio] 15.5 % High 11.0-15.0 [facility] Globulin Calc (S) [Mass/Vol] Ordered By: Analisa Bryant on 07-22-2025 Globulin (S) [Mass/Vol] 5.0 g/dL [facility] Glomerular filtration rate ( GFR) estimation in non- AmericanOrdered By: Analisa Bryant on 07-22-2025 GFR/1.73 sq M.predicted among non-blacks MDRD (S/P/Bld) [Vol rate/Area] 35 mL/min/{1.73_m2} Low >=60 mL/min/1.73 m 2 [facility] Hematocrit Auto (Bld) [Volum e fraction]Ordered By: Shantel Steven on 07-22-2025 Hematocrit (Bld) [Volume fraction] 32.6 % Low 36.0-48.0 [facility] Hemoglobin [Mass/volume] in BloodOrdered By: Shantel Steven on 07-22-2025 Hemoglobin (Bld) [Mass/Vol] 10.5 g/dL Low 12.0-16.0 [facility] Leukocytes [#/volume] correc gali for nucleated erythrocytes in Blood by Automated counOrdered By: Shantel Steven on 07-22-2025 WBC corrected for nucl RBC Auto (Bld) [#/Vol] 6.1 10 3/uL 4.0-11.0 [facility] Lymphocytes Auto (Bld) [#/Vo l]Ordered By: Shantel Steven on 07-22-2025 Lymphocytes (Bld) [#/Vol] 0.9 10 3/uL Low 1.2-3.8 [facility] Lymphocytes/100 WBC Auto (Bl d)Ordered By: Shantel Steven on 07-22-2025 Lymphocytes/100 WBC (Bld) 15.0 % Low 20.5-60.0 [facility] MCH Auto (RBC) [Entitic mass ]Ordered By: Shantel Steven on 07-22-2025 MCH (RBC) [Entitic mass] 29.7 pg 26.7-34.0 [facility] MCHC Auto (RBC) [Mass/Vol]Or dered By: Shantel Steven on 07-22-2025 MCHC (RBC) [Mass/Vol] 32.2 g/dL 29.9-35.2 [facility] MCV Auto (RBC) [Entitic vol] Ordered By: Shantel Steven on 07-22-2025 MCV (RBC) [Entitic vol] 92.1 fL 81.0-99.0 [facility] Monocytes Auto (Bld) [#/Vol] Ordered By: Shantel Steven on 07-22-2025 Monocytes (Bld) [#/Vol] 0.5 10 3/uL 0.3-0.8 [facility] Monocytes/100 WBC Auto (Bld) Ordered By: Shantel Steven on 07-22-2025 Monocytes/100 WBC (Bld) 8.2 % 1.7-12.0 [facility] Neutrophils Auto (Bld) [#/Vo l]Ordered By: Shantel Steven on 07-22-2025 Neutrophils (Bld) [#/Vol] 4.5 10 3/uL 1.4-6.5 [facility] Neutrophils/100 WBC Auto (Bl d)Ordered By: Shantel Steven on 07-22-2025 Neutrophils/100 WBC (Bld) 73.3 % 43.0-75.0 [facility] No Panel InformationOrdered By: Shantel Steven on 07-22-2025 7408.0 pg/mL Critically high <=1800.0 [facility] 0.1 10 3/uL 0.0-0.7 [facility] 0.01 10 3/uL 0.00-0.03 [facility] 0.2 % 0.0-0.5 [facility] No Panel InformationOrdered By: Analisa Bryant on 07-22-2025 19.6 pg/mL 4.0-51.3 [facility] 2.1 g/dL Low 3.4-5.0 [facility] 137 U/L High 46-116 [facility] 15 U/L 14-59 [facility] 12 U/L Low 15-37 [facility] 26.9 [facility] 39.0 mg/dL High 7.0-18.0 [facility] 8.2 mg/dL Low 8.5-10.1 [facility] 109 mmol/L High 98-107 [facility] 26.1 mmol/L 21.0-32.0 [facility] 1.45 mg/dL High 0.55-1.02 [facility] 42 Low >=60 mL/min/1.73 m 2 [facility] 150 mg/dL High 74-106 [facility] 4.8 mmol/L 3.5-5.1 [facility] 143 mmol/L 136-145 [facility] 0.4 mg/dL 0.2-1.0 [facility] 7.1 g/dL 6.4-8.2 [facility] Platelet mean volume Auto (B ld) [Entitic vol]Ordered By: Shantel Steven on 07-22-2025 Platelet mean volume (Bld) [Entitic vol] 10.5 fL 9.5-13.5 [facility] Platelets Auto (Bld) [#/Vol] Ordered By: Shantel Steven on 07-22-2025 Platelets (Bld) [#/Vol] 200 10 3/uL 150-450 [facility] RBC Auto (Bld) [#/Vol]Ordere d By: Shantel Steven on 07-22-2025 RBC (Bld) [#/Vol] 3.54 10 6/uL Low 4.20-5.40 [facility] Serum or plasma albumin/glob ulin mass ratioOrdered By: Analisa Bryant on 07-22-2025 Albumin/Globulin [Mass ratio] 0.4 {ratio} [facility] Serum or plasma anion gap de terminationOrdered By: Analisa Bryant on 07-22-2025 Anion gap [Moles/Vol] 12.7 mmol/L [facility] Telephoneon 07-15-2025 Telephone [phone] Joe Call 1945 F Date Provider Department Center 07/15/2025 [facility] None Family History Problem Relation Age of Onset Heart disease Mother Heart attack Father Coronary artery disease Other Diabetes Other Polycystic kidney disease Other Family Status - Relation Status Age at Mother Father Sister Brother Other Normal [facility] Glomerular filtration rate ( GFR) estimation in non- AmericanOrdered By: Monica Stewart on 07-01-2025 GFR/1.73 sq M.predicted among non-blacks MDRD (S/P/Bld) [Vol rate/Area] 25 mL/min/{1.73_m2} Low >=60 mL/min/1.73 m 2 [facility] No Panel InformationOrdered By: Monica Stewart on 07-01-2025 18.5 [facility] 36.0 mg/dL High 7.0-18.0 [facility] 8.3 mg/dL Low 8.5-10.1 [facility] 106 mmol/L 98-107 [facility] 31.7 mmol/L 21.0-32.0 [facility] 1.95 mg/dL High 0.55-1.02 [facility] 30 Low >=60 mL/min/1.73 m 2 [facility] 189 mg/dL High 74-106 [facility] 3.6 mmol/L 3.5-5.1 [facility] 143 mmol/L 136-145 [facility] Serum or plasma anion gap de terminationOrdered By: Monica Stewart on 07-01-2025 Anion gap [Moles/Vol] 8.9 mmol/L [facility] Glomerular filtration rate ( GFR) estimation in non- AmericanOrdered By: Monica Stewart on 06-30-2025 GFR/1.73 sq M.predicted among non-blacks MDRD (S/P/Bld) [Vol rate/Area] 28 mL/min/{1.73_m2} Low >=60 mL/min/1.73 m 2 [facility] No Panel InformationOrdered By: Monica Stewart on 06-30-2025 19.5 [facility] 34.0 mg/dL High 7.0-18.0 [facility] 8.2 mg/dL Low 8.5-10.1 [facility] 106 mmol/L 98-107 [facility] 32.9 mmol/L High 21.0-32.0 [facility] 1.74 mg/dL High 0.55-1.02 [facility] 34 Low >=60 mL/min/1.73 m 2 [facility] 50 mg/dL Low 74-106 [facility] 3.2 mmol/L Low 3.5-5.1 [facility] 144 mmol/L 136-145 [facility] Serum or plasma anion gap de terminationOrdered By: Monica Stewart on 06-30-2025 Anion gap [Moles/Vol] 8.3 mmol/L [facility] Basophils Auto (Bld) [#/Vol] Ordered By: Monica Stewart on 06-29-2025 Basophils (Bld) [#/Vol] 0.1 10 3/uL 0.0-0.1 [facility] Basophils/100 WBC Auto (Bld) Ordered By: Monica Stewart on 06-29-2025 Basophils/100 WBC (Bld) 1.6 % 0.2-2.0 [facility] Eosinophils/100 WBC Auto (Bl d)Ordered By: Monica Stewart on 06-29-2025 Eosinophils/100 WBC (Bld) 2.4 % 0.9-7.0 [facility] Erythrocyte distribution wid th Auto (RBC) [Ratio]Ordered By: Monica Stewart on 06-29-2025 Erythrocyte distribution width (RBC) [Ratio] 16.1 % High 11.0-15.0 [facility] Globulin Calc (S) [Mass/Vol] Ordered By: Monica Stewart on 06-29-2025 Globulin (S) [Mass/Vol] 3.8 g/dL [facility] Glomerular filtration rate ( GFR) estimation in non- AmericanOrdered By: Monica Stewart on 06-29-2025 GFR/1.73 sq M.predicted among non-blacks MDRD (S/P/Bld) [Vol rate/Area] 37 mL/min/{1.73_m2} Low >=60 mL/min/1.73 m 2 [facility] Hematocrit Auto (Bld) [Volum e fraction]Ordered By: Monica Stewart on 06-29-2025 Hematocrit (Bld) [Volume fraction] 32.4 % Low 36.0-48.0 [facility] Hemoglobin [Mass/volume] in BloodOrdered By: Monica Stewart on 06-29-2025 Hemoglobin (Bld) [Mass/Vol] 10.2 g/dL Low 12.0-16.0 [facility] Leukocytes [#/volume] correc gali for nucleated erythrocytes in Blood by Automated counOrdered By: Monica Stewart on 06-29-2025 WBC corrected for nucl RBC Auto (Bld) [#/Vol] 5.7 10 3/uL 4.0-11.0 [facility] Lymphocytes Auto (Bld) [#/Vo l]Ordered By: Monica Stewart on 06-29-2025 Lymphocytes (Bld) [#/Vol] 1.2 10 3/uL 1.2-3.8 [facility] Lymphocytes/100 WBC Auto (Bl d)Ordered By: Monica Stewart on 06-29-2025 Lymphocytes/100 WBC (Bld) 20.6 % 20.5-60.0 [facility] MCH Auto (RBC) [Entitic mass ]Ordered By: Monica Stewart on 06-29-2025 MCH (RBC) [Entitic mass] 29.3 pg 26.7-34.0 [facility] MCHC Auto (RBC) [Mass/Vol]Or dered By: Monica Stewart on 06-29-2025 MCHC (RBC) [Mass/Vol] 31.5 g/dL 29.9-35.2 [facility] MCV Auto (RBC) [Entitic vol] Ordered By: Monica Stewart on 06-29-2025 MCV (RBC) [Entitic vol] 93.1 fL 81.0-99.0 [facility] Monocytes Auto (Bld) [#/Vol] Ordered By: Monica Stewart on 06-29-2025 Monocytes (Bld) [#/Vol] 0.6 10 3/uL 0.3-0.8 [facility] Monocytes/100 WBC Auto (Bld) Ordered By: Monica Stewart on 06-29-2025 Monocytes/100 WBC (Bld) 10.1 % 1.7-12.0 [facility] Neutrophils Auto (Bld) [#/Vo l]Ordered By: Monica Stewart on 06-29-2025 Neutrophils (Bld) [#/Vol] 3.7 10 3/uL 1.4-6.5 [facility] Neutrophils/100 WBC Auto (Bl d)Ordered By: Monica Stewart on 06-29-2025 Neutrophils/100 WBC (Bld) 65.1 % 43.0-75.0 [facility] No Panel InformationOrdered By: Monica Stewart on 06-29-2025 0.1 10 3/uL 0.0-0.7 [facility] 0.01 10 3/uL 0.00-0.03 [facility] 0.2 % 0.0-0.5 [facility] 7998.0 pg/mL Critically high <=1800.0 [facility] 2.0 g/dL Low 3.4-5.0 [facility] 109 U/L 46-116 [facility] 17 U/L 14-59 [facility] 16 U/L 15-37 [facility] 22.5 [facility] 31.0 mg/dL High 7.0-18.0 [facility] 8.2 mg/dL Low 8.5-10.1 [facility] 109 mmol/L High 98-107 [facility] 31.7 mmol/L 21.0-32.0 [facility] 1.38 mg/dL High 0.55-1.02 [facility] 45 Low >=60 mL/min/1.73 m 2 [facility] 87 mg/dL 74-106 [facility] 3.7 mmol/L 3.5-5.1 [facility] 144 mmol/L 136-145 [facility] 0.6 mg/dL 0.2-1.0 [facility] 5.8 g/dL Low 6.4-8.2 [facility] Platelet mean volume Auto (B ld) [Entitic vol]Ordered By: Monica Stewart on 06-29-2025 Platelet mean volume (Bld) [Entitic vol] 10.2 fL 9.5-13.5 [facility] Platelets Auto (Bld) [#/Vol] Ordered By: Monica Stewart on 06-29-2025 Platelets (Bld) [#/Vol] 194 10 3/uL 150-450 [facility] RBC Auto (Bld) [#/Vol]Ordere d By: Monica Stewart on 06-29-2025 RBC (Bld) [#/Vol] 3.48 10 6/uL Low 4.20-5.40 [facility] Serum or plasma albumin/glob ulin mass ratioOrdered By: Monica Stewart on 06-29-2025 Albumin/Globulin [Mass ratio] 0.5 {ratio} [facility] Serum or plasma anion gap de terminationOrdered By: Monica Stewart on 06-29-2025 Anion gap [Moles/Vol] 7.0 mmol/L [facility] Basophils Auto (Bld) [#/Vol] Ordered By: Jarred Galan on 06-28-2025 Basophils (Bld) [#/Vol] 0.1 10 3/uL 0.0-0.1 [facility] Basophils/100 WBC Auto (Bld) Ordered By: Jarred Galan on 06-28-2025 Basophils/100 WBC (Bld) 1.2 % 0.2-2.0 [facility] Eosinophils/100 WBC Auto (Bl d)Ordered By: Jarred Galan on 06-28-2025 Eosinophils/100 WBC (Bld) 2.4 % 0.9-7.0 [facility] Erythrocyte distribution wid th Auto (RBC) [Ratio]Ordered By: Jarred Galan on 06-28-2025 Erythrocyte distribution width (RBC) [Ratio] 15.9 % High 11.0-15.0 [facility] Globulin Calc (S) [Mass/Vol] Ordered By: Jarred Galan on 06-28-2025 Globulin (S) [Mass/Vol] 5.1 g/dL [facility] Glomerular filtration rate ( GFR) estimation in non- AmericanOrdered By: Jarred Galan on 06-28-2025 GFR/1.73 sq M.predicted among non-blacks MDRD (S/P/Bld) [Vol rate/Area] 37 mL/min/{1.73_m2} Low >=60 mL/min/1.73 m 2 [facility] Hematocrit Auto (Bld) [Volum e fraction]Ordered By: Jarred Galan on 06-28-2025 Hematocrit (Bld) [Volume fraction] 34.9 % Low 36.0-48.0 [facility] Hemoglobin [Mass/volume] in BloodOrdered By: Jarred Galan on 06-28-2025 Hemoglobin (Bld) [Mass/Vol] 11.2 g/dL Low 12.0-16.0 [facility] Leukocytes [#/volume] correc gali for nucleated erythrocytes in Blood by Automated counOrdered By: Jarred Galan on 06-28-2025 WBC corrected for nucl RBC Auto (Bld) [#/Vol] 7.5 10 3/uL 4.0-11.0 [facility] Lymphocytes Auto (Bld) [#/Vo l]Ordered By: Jarred Galan on 06-28-2025 Lymphocytes (Bld) [#/Vol] 0.9 10 3/uL Low 1.2-3.8 [facility] Lymphocytes/100 WBC Auto (Bl d)Ordered By: Jarred Galan on 06-28-2025 Lymphocytes/100 WBC (Bld) 12.6 % Low 20.5-60.0 [facility] MCH Auto (RBC) [Entitic mass ]Ordered By: Jarred Galan on 06-28-2025 MCH (RBC) [Entitic mass] 29.5 pg 26.7-34.0 [facility] MCHC Auto (RBC) [Mass/Vol]Or dered By: Jarred Galan on 06-28-2025 MCHC (RBC) [Mass/Vol] 32.1 g/dL 29.9-35.2 [facility] MCV Auto (RBC) [Entitic vol] Ordered By: Jarred Galan on 06-28-2025 MCV (RBC) [Entitic vol] 91.8 fL 81.0-99.0 [facility] Monocytes Auto (Bld) [#/Vol] Ordered By: Jarred Galan on 06-28-2025 Monocytes (Bld) [#/Vol] 0.6 10 3/uL 0.3-0.8 [facility] Monocytes/100 WBC Auto (Bld) Ordered By: Jarred Galan on 06-28-2025 Monocytes/100 WBC (Bld) 8.1 % 1.7-12.0 [facility] Neutrophils Auto (Bld) [#/Vo l]Ordered By: Jarred Galan on 06-28-2025 Neutrophils (Bld) [#/Vol] 5.6 10 3/uL 1.4-6.5 [facility] Neutrophils/100 WBC Auto (Bl d)Ordered By: Jarred Galan on 06-28-2025 Neutrophils/100 WBC (Bld) 75.6 % High 43.0-75.0 [facility] No Panel InformationOrdered By: Jarred Galan on 06-28-2025 NO [facility] SEEN #/LPF Abnormal NONE SEEN [facility] None Seen #/HPF NONE SEEN [facility] TRACE #/HPF Abnormal NONE SEEN [facility] Negative NEGATIVE [facility] SMALL Abnormal NEGATIVE [facility] CLEAR CLEAR [facility] LT. YELLOW YELLOW [facility] 100 mg/dL Abnormal NEGATIVE [facility] RARE [facility] TRACE Abnormal NONE SEEN [facility] 7.0 5.0-9.0 [facility] >=300 mg/dL Abnormal NEG/TRACE [facility] 5-10 #/HPF Abnormal 0-2 [facility] 1.020 1.005-1.025 [facility] FEW #/LPF Abnormal NONE/RARE [facility] 0.2 EU/dL 0.2-1.0 [facility] 0.2 10 3/uL 0.0-0.7 [facility] 0.01 10 3/uL 0.00-0.03 [facility] 0.1 % 0.0-0.5 [facility] 7158.0 pg/mL Critically high <=1800.0 [facility] 22.6 pg/mL 4.0-51.3 [facility] 2.2 g/dL Low 3.4-5.0 [facility] 104 U/L 46-116 [facility] 16 U/L 14-59 [facility] 21 U/L 15-37 [facility] 22.6 [facility] 31.0 mg/dL High 7.0-18.0 [facility] 8.4 mg/dL Low 8.5-10.1 [facility] 106 mmol/L 98-107 [facility] 30.7 mmol/L 21.0-32.0 [facility] 1.37 mg/dL High 0.55-1.02 [facility] 45 Low >=60 mL/min/1.73 m 2 [facility] 117 mg/dL High 74-106 [facility] 4.2 mmol/L 3.5-5.1 [facility] 143 mmol/L 136-145 [facility] 0.5 mg/dL 0.2-1.0 [facility] 7.3 g/dL 6.4-8.2 [facility] Platelet mean volume Auto (B ld) [Entitic vol]Ordered By: Jarred Galan on 06-28-2025 Platelet mean volume (Bld) [Entitic vol] 10.9 fL 9.5-13.5 [facility] Platelets Auto (Bld) [#/Vol] Ordered By: Jarred Galan on 06-28-2025 Platelets (Bld) [#/Vol] 158 10 3/uL 150-450 [facility] RBC Auto (Bld) [#/Vol]Ordere d By: Jarred Galan on 06-28-2025 RBC (Bld) [#/Vol] 3.80 10 6/uL Low 4.20-5.40 [facility] Serum or plasma albumin/glob ulin mass ratioOrdered By: Jarred Galan on 06-28-2025 Albumin/Globulin [Mass ratio] 0.4 {ratio} [facility] Serum or plasma anion gap de terminationOrdered By: Jarred Galan on 06-28-2025 Anion gap [Moles/Vol] 10.5 mmol/L [facility] Erythrocyte distribution wid th Auto (RBC) [Ratio]Ordered By: Outside Provider on 06-19-2025 Erythrocyte distribution width (RBC) [Ratio] 15.8 % High 11.0-15.0 [facility] Glomerular filtration rate ( GFR) estimation in non- AmericanOrdered By: Outside Provider on 06-19-2025 GFR/1.73 sq M.predicted among non-blacks MDRD (S/P/Bld) [Vol rate/Area] 27 mL/min/{1.73_m2} Low >=60 mL/min/1.73 m 2 [facility] Hematocrit Auto (Bld) [Volum e fraction]Ordered By: Outside Provider on 06-19-2025 Hematocrit (Bld) [Volume fraction] 33.5 % Low 36.0-48.0 [facility] Hemoglobin [Mass/volume] in BloodOrdered By: Outside Provider on 06-19-2025 Hemoglobin (Bld) [Mass/Vol] 11.0 g/dL Low 12.0-16.0 [facility] Leukocytes [#/volume] correc gali for nucleated erythrocytes in Blood by Automated counOrdered By: Outside Provider on 06-19-2025 WBC corrected for nucl RBC Auto (Bld) [#/Vol] 6.5 10 3/uL 4.0-11.0 [facility] MCH Auto (RBC) [Entitic mass ]Ordered By: Outside Provider on 06-19-2025 MCH (RBC) [Entitic mass] 30.1 pg 26.7-34.0 [facility] MCHC Auto (RBC) [Mass/Vol]Or dered By: Outside Provider on 06-19-2025 MCHC (RBC) [Mass/Vol] 32.8 g/dL 29.9-35.2 [facility] MCV Auto (RBC) [Entitic vol] Ordered By: Outside Provider on 06-19-2025 MCV (RBC) [Entitic vol] 91.5 fL 81.0-99.0 [facility] No Panel InformationOrdered By: Outside Provider on 06-19-2025 9659.0 pg/mL Critically high <=1800.0 [facility] 29.7 pg/mL 4.0-51.3 [facility] 1.5 mg/dL Low 1.8-2.4 [facility] 17.7 [facility] 32.0 mg/dL High 7.0-18.0 [facility] 8.5 mg/dL 8.5-10.1 [facility] 106 mmol/L 98-107 [facility] 33.4 mmol/L High 21.0-32.0 [facility] 1.81 mg/dL High 0.55-1.02 [facility] 33 Low >=60 mL/min/1.73 m 2 [facility] 134 mg/dL High 74-106 [facility] 3.3 mmol/L Low 3.5-5.1 [facility] 145 mmol/L 136-145 [facility] Platelet mean volume Auto (B ld) [Entitic vol]Ordered By: Outside Provider on 06-19-2025 Platelet mean volume (Bld) [Entitic vol] 10.2 fL 9.5-13.5 [facility] Platelets Auto (Bld) [#/Vol] Ordered By: Outside Provider on 06-19-2025 Platelets (Bld) [#/Vol] 244 10 3/uL 150-450 [facility] RBC Auto (Bld) [#/Vol]Ordere d By: Outside Provider on 06-19-2025 RBC (Bld) [#/Vol] 3.66 10 6/uL Low 4.20-5.40 [facility] Serum or plasma anion gap de terminationOrdered By: Outside Provider on 06-19-2025 Anion gap [Moles/Vol] 8.9 mmol/L [facility] Alanine aminotransferase [En zymatic activity/volume] in Serum or PlasmaOrdered By: Shantel Steven on 06-15-2025 ALT [Catalytic activity/Vol] 11 U/L Normal 7-52 [facility] Comment on above: Performed By: #### G LULS #### Point of Care testing , Albumin [Mass/volume] in Ser um or Plasma by Bromocresol green (BCG) dye binding methoOrdered By: Shantel Steven on 06-15-2025 Albumin BCG dye [Mass/Vol] 2.8 g/dL Low 3.5-5.7 [facility] Alkaline phosphatase [Enzyma tic activity/volume] in Serum or PlasmaOrdered By: Shantel Steven on 06-15-2025 ALP [Catalytic activity/Vol] 103 U/L Normal 34-104 [facility] Comment on above: Result Comment: PERF ORMED BY: [facility] [address] [place] [address] PATHOLOGIST [employer] ANALYST SIMON LINTON M.D. Performed By: #### G LULS #### Point of Care testing , Aspartate aminotransferase [ Enzymatic activity/volume] in Serum or PlasmaOrdered By: Shantel Steven on 06-15-2025 AST [Catalytic activity/Vol] 13 U/L Normal 13-39 [facility] Comment on above: Performed By: #### G LULS #### Point of Care testing , Bilirubin.total [Mass/volume ] in Serum or PlasmaOrdered By: Shnatel Steven on 06-15-2025 Bilirubin [Mass/Vol] 0.5 mg/dL Normal 0.3-1.0 [facility] Comment on above: Performed By: #### G LULS #### Point of Care testing , Calcium [Mass/volume] in Ser um or PlasmaOrdered By: Shantel Steven on 06-15-2025 Calcium [Mass/Vol] 8.3 mg/dL Low 8.6-10.3 [facility] Comment on above: Performed By: #### G LULS #### Point of Care testing , Carbon dioxide, total [Moles /volume] in Serum or PlasmaOrdered By: Shantel Steven on 06-15-2025 CO2 [Moles/Vol] 31.9 mmol/L High 21.0-31.0 [facility] Comment on above: Performed By: #### G LULS #### Point of Care testing , Chloride [Moles/volume] in S oziel or PlasmaOrdered By: Shantel Steven on 06-15-2025 Chloride [Moles/Vol] 103 mmol/L Normal 98-107 [facility] Comment on above: Performed By: #### G LULS #### Point of Care testing , Comprehensive Metabolic Pane daniele 06-15-2025 Albumin [Mass/Vol] 2.8 g/dL Low 3.5-5.7 [facility] Comment on above: Performed By: #### G LULS #### Point of Care testing , GFR/1.73 sq M.predicted MDRD (S/P/Bld) [Vol rate/Area] 38.841 mL/min/{1.73_m2} Normal [facility] Comment on above: Performed By: #### G LULS #### Point of Care testing , Creatinine [Mass/volume] in Serum or PlasmaOrdered By: Shantel Steven on 06-15-2025 Creatinine [Mass/Vol] 1.39 mg/dL High 0.60-1.20 [facility] Comment on above: Performed By: #### G LULS #### Point of Care testing , Glucose [Mass/volume] in Ser um or PlasmaOrdered By: Shantel Steven on 06-15-2025 Glucose [Mass/Vol] 235 mg/dL High 70-100 [facility] Comment on above: Result Comment: [place] Glucose Reference Range is dependent on time and content of last meal. Glucose of more than 200 mg/dL in a nonstressed, ambulatory subject supports the diagnosis of Diabetes Mellitus. ADA recommended reference range Performed By: #### G LULS #### Point of Care testing , No Panel InformationOrdered By: Shantel Steven on 06-15-2025 38.841 mL/Min [facility] N/A [facility] Potassium [Moles/volume] in Serum or PlasmaOrdered By: Shantel Steven on 06-15-2025 Potassium [Moles/Vol] 3.7 mmol/L Normal 3.5-5.1 [facility] Comment on above: Performed By: #### G LULS #### Point of Care testing , Protein [Mass/volume] in Ser um or PlasmaOrdered By: Shantel Steven on 06-15-2025 Protein [Mass/Vol] 6.3 g/dL Low 6.4-8.9 [facility] Comment on above: Performed By: #### G LULS #### Point of Care testing , Serum globulin measurement b y calculation (mass/volume)Ordered By: Shnatel Steven on 06-15-2025 Globulin (S) [Mass/Vol] 3.5 g/dL Normal [facility] Comment on above: Performed By: #### G LULS #### Point of Care testing , Serum or plasma albumin/glob ulin mass ratioOrdered By: Shantel Steven on 06-15-2025 Albumin/Globulin [Mass ratio] 0.8 {ratio} [facility] Comment on above: Performed By: #### G LULS #### Point of Care testing , Serum or plasma anion gap de terminationOrdered By: Shantel Steven on 06-15-2025 Anion gap [Moles/Vol] 9.8 mmol/L Normal 6.0-15.0 [facility] Comment on above: Performed By: #### G LULS #### Point of Care testing , Sodium [Moles/volume] in Ser um or PlasmaOrdered By: Shantel Steven on 06-15-2025 Sodium [Moles/Vol] 141 mmol/L Normal 136-145 [facility] Comment on above: Performed By: #### G LULS #### Point of Care testing , Urea nitrogen [Mass/volume] in Serum or PlasmaOrdered By: Shantel Steven on 06-15-2025 Urea nitrogen [Mass/Vol] 31 mg/dL High 7-25 [facility] Comment on above: Performed By: #### G MICK #### Point of Care testing , Basophils Auto (Bld) [#/Vol] Ordered By: Osbaldo Marlow on 06-10-2025 Basophils (Bld) [#/Vol] 0.1 10 3/uL 0.0-0.1 [facility] Basophils/100 WBC Auto (Bld) Ordered By: Osbaldo Marlow on 06-10-2025 Basophils/100 WBC (Bld) 1.1 % 0.2-2.0 [facility] Eosinophils/100 WBC Auto (Bl d)Ordered By: Osbaldo Marlow on 06-10-2025 Eosinophils/100 WBC (Bld) 2.1 % 0.9-7.0 [facility] Erythrocyte distribution wid th Auto (RBC) [Ratio]Ordered By: Osbaldo Marlow on 06-10-2025 Erythrocyte distribution width (RBC) [Ratio] 16.4 % High 11.0-15.0 [facility] Estimated glomerular filtrat ion rate (GFR) non- AmericanOrdered By: Osbaldo Marlow on 06-10-2025 GFR/1.73 sq M.predicted among non-blacks MDRD (S/P/Bld) [Vol rate/Area] 27 mL/min/{1.73_m2} Low >=60 mL/min/1.73 m 2 [facility] Globulin Calc (S) [Mass/Vol] Ordered By: Osbaldo Marlow on 06-10-2025 Globulin (S) [Mass/Vol] 4.6 g/dL [facility] Hematocrit Auto (Bld) [Volum e fraction]Ordered By: Osbaldo Marlow on 06-10-2025 Hematocrit (Bld) [Volume fraction] 31.3 % Low 36.0-48.0 [facility] Hemoglobin [Mass/volume] in BloodOrdered By: Osbaldo Marlow on 06-10-2025 Hemoglobin (Bld) [Mass/Vol] 10.1 g/dL Low 12.0-16.0 [facility] Leukocytes [#/volume] correc gali for nucleated erythrocytes in Blood by Automated counOrdered By: Osbaldo Marlow on 06-10-2025 WBC corrected for nucl RBC Auto (Bld) [#/Vol] 9.0 10 3/uL 4.0-11.0 [facility] Lymphocytes Auto (Bld) [#/Vo l]Ordered By: Osbaldo Marlow on 06-10-2025 Lymphocytes (Bld) [#/Vol] 1.4 10 3/uL 1.2-3.8 [facility] Lymphocytes/100 WBC Auto (Bl d)Ordered By: Osbaldo Marlow on 06-10-2025 Lymphocytes/100 WBC (Bld) 15.0 % Low 20.5-60.0 [facility] MCH Auto (RBC) [Entitic mass ]Ordered By: Osbaldo Marlow on 06-10-2025 MCH (RBC) [Entitic mass] 29.6 pg 26.7-34.0 [facility] MCHC Auto (RBC) [Mass/Vol]Or dered By: Osbaldo Marlow on 06-10-2025 MCHC (RBC) [Mass/Vol] 32.3 g/dL 29.9-35.2 [facility] MCV Auto (RBC) [Entitic vol] Ordered By: Osbaldo Marlow on 06-10-2025 MCV (RBC) [Entitic vol] 91.8 fL 81.0-99.0 [facility] Monocytes Auto (Bld) [#/Vol] Ordered By: Osbaldo Marlow on 06-10-2025 Monocytes (Bld) [#/Vol] 0.5 10 3/uL 0.3-0.8 [facility] Monocytes/100 WBC Auto (Bld) Ordered By: Osbaldo Marlow on 06-10-2025 Monocytes/100 WBC (Bld) 5.6 % 1.7-12.0 [facility] Neutrophils Auto (Bld) [#/Vo l]Ordered By: Osbaldo Marlow on 06-10-2025 Neutrophils (Bld) [#/Vol] 6.8 10 3/uL High 1.4-6.5 [facility] Neutrophils/100 WBC Auto (Bl d)Ordered By: Osbaldo Marlow on 06-10-2025 Neutrophils/100 WBC (Bld) 75.9 % High 43.0-75.0 [facility] No Panel InformationOrdered By: Osbaldo Marlow on 06-10-2025 2.0 mg/dL 1.8-2.4 [facility] 4.4 mg/dL 2.6-4.7 [facility] 1.7 g/dL Low 3.4-5.0 [facility] 0.2 10 3/uL 0.0-0.7 [facility] 96 U/L 46-116 [facility] 14 U/L 14-59 [facility] 15 U/L 15-37 [facility] 16.6 [facility] 0.03 10 3/uL 0.00-0.03 [facility] 30.0 mg/dL High 7.0-18.0 [facility] 0.3 % 0.0-0.5 [facility] 8.2 mg/dL Low 8.5-10.1 [facility] 108 mmol/L High 98-107 [facility] 30.5 mmol/L 21.0-32.0 [facility] 1.81 mg/dL High 0.55-1.02 [facility] 33 Low >=60 mL/min/1.73 m 2 [facility] 117 mg/dL High 74-106 [facility] 3.3 mmol/L Low 3.5-5.1 [facility] 146 mmol/L High 136-145 [facility] 0.4 mg/dL 0.2-1.0 [facility] 6.3 g/dL Low 6.4-8.2 [facility] Platelet mean volume Auto (B ld) [Entitic vol]Ordered By: Osbaldo Marlow on 06-10-2025 Platelet mean volume (Bld) [Entitic vol] 10.0 fL 9.5-13.5 [facility] Platelets Auto (Bld) [#/Vol] Ordered By: Osbaldo Marlow on 06-10-2025 Platelets (Bld) [#/Vol] 248 10 3/uL 150-450 [facility] RBC Auto (Bld) [#/Vol]Ordere d By: Osbaldo Marlow on 06-10-2025 RBC (Bld) [#/Vol] 3.41 10 6/uL Low 4.20-5.40 [facility] Serum or plasma albumin/glob ulin mass ratioOrdered By: Osbaldo Marlow on 06-10-2025 Albumin/Globulin [Mass ratio] 0.4 {ratio} [facility] Serum or plasma anion gap de terminationOrdered By: Osbaldo Marlow on 06-10-2025 Anion gap [Moles/Vol] 10.8 mmol/L [facility] Basophils Auto (Bld) [#/Vol] Ordered By: Osbaldo Marlow on 06-09-2025 Basophils (Bld) [#/Vol] 0.1 10 3/uL 0.0-0.1 [facility] Basophils/100 WBC Auto (Bld) Ordered By: Osbaldo Marlow on 06-09-2025 Basophils/100 WBC (Bld) 1.1 % 0.2-2.0 [facility] Eosinophils/100 WBC Auto (Bl d)Ordered By: Osbaldo Marlow on 06-09-2025 Eosinophils/100 WBC (Bld) 1.8 % 0.9-7.0 [facility] Erythrocyte distribution wid th Auto (RBC) [Ratio]Ordered By: Osbaldo Marlow on 06-09-2025 Erythrocyte distribution width (RBC) [Ratio] 15.9 % High 11.0-15.0 [facility] Estimated glomerular filtrat ion rate (GFR) non- AmericanOrdered By: Cheng Aviles on 06-09-2025 GFR/1.73 sq M.predicted among non-blacks MDRD (S/P/Bld) [Vol rate/Area] 33 mL/min/{1.73_m2} Low >=60 mL/min/1.73 m 2 [facility] Globulin Calc (S) [Mass/Vol] Ordered By: Cheng Aviles on 06-09-2025 Globulin (S) [Mass/Vol] 4.9 g/dL [facility] Hematocrit Auto (Bld) [Volum e fraction]Ordered By: Osbaldo Marlow on 06-09-2025 Hematocrit (Bld) [Volume fraction] 31.8 % Low 36.0-48.0 [facility] Hemoglobin [Mass/volume] in BloodOrdered By: Osbaldo Marlow on 06-09-2025 Hemoglobin (Bld) [Mass/Vol] 10.4 g/dL Low 12.0-16.0 [facility] Leukocytes [#/volume] correc gali for nucleated erythrocytes in Blood by Automated counOrdered By: Osbaldo Marlow on 06-09-2025 WBC corrected for nucl RBC Auto (Bld) [#/Vol] 8.3 10 3/uL 4.0-11.0 [facility] Lymphocytes Auto (Bld) [#/Vo l]Ordered By: Osbaldo Marlow on 06-09-2025 Lymphocytes (Bld) [#/Vol] 1.4 10 3/uL 1.2-3.8 [facility] Lymphocytes/100 WBC Auto (Bl d)Ordered By: Osbaldo Marlow on 06-09-2025 Lymphocytes/100 WBC (Bld) 17.3 % Low 20.5-60.0 [facility] MCH Auto (RBC) [Entitic mass ]Ordered By: Osbaldo Marlow on 06-09-2025 MCH (RBC) [Entitic mass] 29.3 pg 26.7-34.0 [facility] MCHC Auto (RBC) [Mass/Vol]Or dered By: Osbaldo Marlow on 06-09-2025 MCHC (RBC) [Mass/Vol] 32.7 g/dL 29.9-35.2 [facility] MCV Auto (RBC) [Entitic vol] Ordered By: Osbaldo Marlow on 06-09-2025 MCV (RBC) [Entitic vol] 89.6 fL 81.0-99.0 [facility] Monocytes Auto (Bld) [#/Vol] Ordered By: Osbaldo Marlow on 06-09-2025 Monocytes (Bld) [#/Vol] 0.5 10 3/uL 0.3-0.8 [facility] Monocytes/100 WBC Auto (Bld) Ordered By: Osbaldo Marlow on 06-09-2025 Monocytes/100 WBC (Bld) 6.5 % 1.7-12.0 [facility] Neutrophils Auto (Bld) [#/Vo l]Ordered By: Osbaldo Kashmir on 06-09-2025 Neutrophils (Bld) [#/Vol] 6.1 10 3/uL 1.4-6.5 [facility] Neutrophils/100 WBC Auto (Bl d)Ordered By: Nadulce Kashmir on 06-09-2025 Neutrophils/100 WBC (Bld) 72.9 % 43.0-75.0 [facility] No Panel InformationOrdered By: Nadulce Kashmir on 06-09-2025 1.3 mg/dL Low 1.8-2.4 [facility] 3.8 mg/dL 2.6-4.7 [facility] 0.2 10 3/uL 0.0-0.7 [facility] 0.03 10 3/uL 0.00-0.03 [facility] 0.4 % 0.0-0.5 [facility] No Panel InformationOrdered By: Cheng Aviles on 06-09-2025 1.7 g/dL Low 3.4-5.0 [facility] 104 U/L 46-116 [facility] 14 U/L 14-59 [facility] 13 U/L Low 15-37 [facility] 18.3 [facility] 28.0 mg/dL High 7.0-18.0 [facility] 8.1 mg/dL Low 8.5-10.1 [facility] 106 mmol/L 98-107 [facility] 29.8 mmol/L 21.0-32.0 [facility] 1.53 mg/dL High 0.55-1.02 [facility] 40 Low >=60 mL/min/1.73 m 2 [facility] 79 mg/dL 74-106 [facility] 2.7 mmol/L Critically low 3.5-5.1 [facility] 146 mmol/L High 136-145 [facility] 0.4 mg/dL 0.2-1.0 [facility] 6.6 g/dL 6.4-8.2 [facility] Platelet mean volume Auto (B ld) [Entitic vol]Ordered By: Osbaldo Marlow on 06-09-2025 Platelet mean volume (Bld) [Entitic vol] 11.2 fL 9.5-13.5 [facility] Platelets Auto (Bld) [#/Vol] Ordered By: Osbaldo Marlow on 06-09-2025 Platelets (Bld) [#/Vol] 222 10 3/uL 150-450 [facility] RBC Auto (Bld) [#/Vol]Ordere d By: Osbaldo Marlow on 06-09-2025 RBC (Bld) [#/Vol] 3.55 10 6/uL Low 4.20-5.40 [facility] Serum or plasma albumin/glob ulin mass ratioOrdered By: Cheng Aviles on 06-09-2025 Albumin/Globulin [Mass ratio] 0.3 {ratio} [facility] Serum or plasma anion gap de terminationOrdered By: Cheng Aviles on 06-09-2025 Anion gap [Moles/Vol] 12.9 mmol/L [facility] Basophils Auto (Bld) [#/Vol] Ordered By: Jarred Galan on 06-08-2025 Basophils (Bld) [#/Vol] 0.1 10 3/uL 0.0-0.1 [facility] Basophils/100 WBC Auto (Bld) Ordered By: Jarred Galan on 06-08-2025 Basophils/100 WBC (Bld) 1.2 % 0.2-2.0 [facility] Eosinophils/100 WBC Auto (Bl d)Ordered By: Jarred Galan on 06-08-2025 Eosinophils/100 WBC (Bld) 1.9 % 0.9-7.0 [facility] Erythrocyte distribution wid th Auto (RBC) [Ratio]Ordered By: Jarred Galan on 06-08-2025 Erythrocyte distribution width (RBC) [Ratio] 16.1 % High 11.0-15.0 [facility] Estimated glomerular filtrat ion rate (GFR) non- AmericanOrdered By: Jarred Galan on 06-08-2025 GFR/1.73 sq M.predicted among non-blacks MDRD (S/P/Bld) [Vol rate/Area] 29 mL/min/{1.73_m2} Low >=60 mL/min/1.73 m 2 [facility] Hematocrit Auto (Bld) [Volum e fraction]Ordered By: Jarred Galan on 06-08-2025 Hematocrit (Bld) [Volume fraction] 35.3 % Low 36.0-48.0 [facility] Hemoglobin [Mass/volume] in BloodOrdered By: Jarred Galan on 06-08-2025 Hemoglobin (Bld) [Mass/Vol] 11.4 g/dL Low 12.0-16.0 [facility] Leukocytes [#/volume] correc gali for nucleated erythrocytes in Blood by Automated counOrdered By: Jarred Galan on 06-08-2025 WBC corrected for nucl RBC Auto (Bld) [#/Vol] 8.5 10 3/uL 4.0-11.0 [facility] Lymphocytes Auto (Bld) [#/Vo l]Ordered By: Jarred Galan on 06-08-2025 Lymphocytes (Bld) [#/Vol] 1.1 10 3/uL Low 1.2-3.8 [facility] Lymphocytes/100 WBC Auto (Bl d)Ordered By: Jarred Galan on 06-08-2025 Lymphocytes/100 WBC (Bld) 13.3 % Low 20.5-60.0 [facility] MCH Auto (RBC) [Entitic mass ]Ordered By: Jarred Galan on 06-08-2025 MCH (RBC) [Entitic mass] 29.2 pg 26.7-34.0 [facility] MCHC Auto (RBC) [Mass/Vol]Or dered By: Jarred Galan on 06-08-2025 MCHC (RBC) [Mass/Vol] 32.3 g/dL 29.9-35.2 [facility] MCV Auto (RBC) [Entitic vol] Ordered By: Jarred Galan on 06-08-2025 MCV (RBC) [Entitic vol] 90.3 fL 81.0-99.0 [facility] Monocytes Auto (Bld) [#/Vol] Ordered By: Jarred Galan on 06-08-2025 Monocytes (Bld) [#/Vol] 0.4 10 3/uL 0.3-0.8 [facility] Monocytes/100 WBC Auto (Bld) Ordered By: Jarred Galan on 06-08-2025 Monocytes/100 WBC (Bld) 5.2 % 1.7-12.0 [facility] Neutrophils Auto (Bld) [#/Vo l]Ordered By: Jarred Galan on 06-08-2025 Neutrophils (Bld) [#/Vol] 6.6 10 3/uL High 1.4-6.5 [facility] Neutrophils/100 WBC Auto (Bl d)Ordered By: Jarred Galan on 06-08-2025 Neutrophils/100 WBC (Bld) 78.2 % High 43.0-75.0 [facility] No Panel InformationOrdered By: Jarred Galan on 06-08-2025 SEEN #/LPF Abnormal NONE SEEN [facility] None Seen #/HPF None Seen [facility] TRACE #/HPF Abnormal NONE SEEN [facility] MODERATE [facility] CLEAR CLEAR [facility] LT. YELLOW YELLOW [facility] 250 mg/dL Abnormal NEGATIVE [facility] SMALL Abnormal NONE SEEN [facility] 6.5 5.0-9.0 [facility] >=300 mg/dL Abnormal NEG/TRACE [facility] 0-2 #/HPF 0-2 [facility] 1.020 1.005-1.025 [facility] FEW #/LPF Abnormal NONE/RARE [facility] RARE #/LPF Abnormal NONE SEEN [facility] 0.2 EU/dL 0.2-1.0 [facility] 2-5 #/HPF Abnormal NONE SEEN [facility] Negative NEGATIVE [facility] 20765.0 pg/mL Critically high <=1800.0 [facility] 26.7 pg/mL 4.0-51.3 [facility] 0.7 mmol/L 0.4-2.0 [facility] 17.8 [facility] 30.0 mg/dL High 7.0-18.0 [facility] 0.2 10 3/uL 0.0-0.7 [facility] 8.7 mg/dL 8.5-10.1 [facility] 105 mmol/L 98-107 [facility] 30.5 mmol/L 21.0-32.0 [facility] 1.69 mg/dL High 0.55-1.02 [facility] 0.02 10 3/uL 0.00-0.03 [facility] 35 Low >=60 mL/min/1.73 m 2 [facility] 0.2 % 0.0-0.5 [facility] 177 mg/dL High 74-106 [facility] 3.2 mmol/L Low 3.5-5.1 [facility] 144 mmol/L 136-145 [facility] Platelet mean volume Auto (B ld) [Entitic vol]Ordered By: Jarred Galan on 06-08-2025 Platelet mean volume (Bld) [Entitic vol] 9.8 fL 9.5-13.5 [facility] Platelets Auto (Bld) [#/Vol] Ordered By: Jarred Galan on 06-08-2025 Platelets (Bld) [#/Vol] 291 10 3/uL 150-450 [facility] RBC Auto (Bld) [#/Vol]Ordere d By: Jarred Galan on 06-08-2025 RBC (Bld) [#/Vol] 3.91 10 6/uL Low 4.20-5.40 [facility] Serum or plasma anion gap de terminationOrdered By: Jarred Galan on 06-08-2025 Anion gap [Moles/Vol] 11.7 mmol/L [facility] Urine Cultureon 06-02-2025 Bacteria identified Cx Nom (U) 50,000 colonies/ml mixed bacterial skin contaminants 2 Days PERFORMED BY: [facility] [address] [place] [address] PATHOLOGIST CONFIGURATION MANAGEMENT ANALYST SIMON Lynn [facility] Comment on above: Performed By: #### B MAINTENANCE TEAM MEMBER, HS TROP, PT, CBC, BMP #### [facility] [address] Urine cultureOrdered By: Alessia Steven on 06-02-2025 Bacteria identified Cx Nom (U) 2 Days [facility] Estimated glomerular filtrat ion rate (GFR) non- AmericanOrdered By: Monica Stewart on 05-31-2025 GFR/1.73 sq M.predicted among non-blacks MDRD (S/P/Bld) [Vol rate/Area] 31 mL/min/{1.73_m2} Low >=60 mL/min/1.73 m 2 [facility] No Panel InformationOrdered By: Monica Stewart on 05-31-2025 31.3 [facility] 50.0 mg/dL High 7.0-18.0 [facility] 8.2 mg/dL Low 8.5-10.1 [facility] 106 mmol/L 98-107 [facility] 26.2 mmol/L 21.0-32.0 [facility] 1.60 mg/dL High 0.55-1.02 [facility] 38 Low >=60 mL/min/1.73 m 2 [facility] 103 mg/dL 74-106 [facility] 3.8 mmol/L 3.5-5.1 [facility] 142 mmol/L 136-145 [facility] Serum or plasma anion gap de terminationOrdered By: Monica Stewart on 05-31-2025 Anion gap [Moles/Vol] 13.6 mmol/L [facility] Erythrocyte distribution wid th Auto (RBC) [Ratio]Ordered By: Monica Stewart on 05-30-2025 Erythrocyte distribution width (RBC) [Ratio] 17.2 % High 11.0-15.0 [facility] Estimated glomerular filtrat ion rate (GFR) non- AmericanOrdered By: Monica Stewart on 05-30-2025 GFR/1.73 sq M.predicted among non-blacks MDRD (S/P/Bld) [Vol rate/Area] 28 mL/min/{1.73_m2} Low >=60 mL/min/1.73 m 2 [facility] Hematocrit Auto (Bld) [Volum e fraction]Ordered By: Monica Stewart on 05-30-2025 Hematocrit (Bld) [Volume fraction] 32.9 % Low 36.0-48.0 [facility] Hemoglobin [Mass/volume] in BloodOrdered By: Monica Stewart on 05-30-2025 Hemoglobin (Bld) [Mass/Vol] 10.6 g/dL Low 12.0-16.0 [facility] Leukocytes [#/volume] correc gali for nucleated erythrocytes in Blood by Automated counOrdered By: Monica Stewart on 05-30-2025 WBC corrected for nucl RBC Auto (Bld) [#/Vol] 18.7 10 3/uL High 4.0-11.0 [facility] MCH Auto (RBC) [Entitic mass ]Ordered By: Monica Stewart on 05-30-2025 MCH (RBC) [Entitic mass] 29.7 pg 26.7-34.0 [facility] MCHC Auto (RBC) [Mass/Vol]Or dered By: Monica Stewart on 05-30-2025 MCHC (RBC) [Mass/Vol] 32.2 g/dL 29.9-35.2 [facility] MCV Auto (RBC) [Entitic vol] Ordered By: Monica Stewart on 05-30-2025 MCV (RBC) [Entitic vol] 92.2 fL 81.0-99.0 [facility] No Panel InformationOrdered By: Monica Stewart on 05-30-2025 1.8 mg/dL 1.8-2.4 [facility] 26.4 [facility] 47.0 mg/dL High 7.0-18.0 [facility] 8.5 mg/dL 8.5-10.1 [facility] 106 mmol/L 98-107 [facility] 27.5 mmol/L 21.0-32.0 [facility] 1.78 mg/dL High 0.55-1.02 [facility] 33 Low >=60 mL/min/1.73 m 2 [facility] 97 mg/dL 74-106 [facility] 4.0 mmol/L 3.5-5.1 [facility] 143 mmol/L 136-145 [facility] Platelet mean volume Auto (B ld) [Entitic vol]Ordered By: Monica Stewart on 05-30-2025 Platelet mean volume (Bld) [Entitic vol] 10.3 fL 9.5-13.5 [facility] Platelets Auto (Bld) [#/Vol] Ordered By: Monica Stewart on 05-30-2025 Platelets (Bld) [#/Vol] 183 10 3/uL 150-450 [facility] RBC Auto (Bld) [#/Vol]Ordere d By: Monica Stewart on 05-30-2025 RBC (Bld) [#/Vol] 3.57 10 6/uL Low 4.20-5.40 [facility] Serum or plasma anion gap de terminationOrdered By: Monica Stewart on 05-30-2025 Anion gap [Moles/Vol] 13.5 mmol/L [facility] Basophils/100 WBC Manual cnt (Bld)Ordered By: Monica Stewart on 05-29-2025 Basophils/100 WBC (Bld) 0.0 % Low 0.2-2.0 [facility] Eosinophils/100 WBC Manual c nt (Bld)Ordered By: Monica Stewart on 05-29-2025 Eosinophils/100 WBC (Bld) 0.0 % Low 0.9-7.0 [facility] Erythrocyte distribution wid th Auto (RBC) [Ratio]Ordered By: Monica Stewart on 05-29-2025 Erythrocyte distribution width (RBC) [Ratio] 16.6 % High 11.0-15.0 [facility] Estimated glomerular filtrat ion rate (GFR) non- AmericanOrdered By: Monica Stewart on 05-29-2025 GFR/1.73 sq M.predicted among non-blacks MDRD (S/P/Bld) [Vol rate/Area] 33 mL/min/{1.73_m2} Low >=60 mL/min/1.73 m 2 [facility] Glucose mean value [Mass/vol ume] in Blood Estimated from glycated hemoglobinOrdered By: Monica Stewart on 05-29-2025 Average glucose Estimated from glycated hemoglobin (Bld) [Mass/Vol] 209 mg/dL [facility] Hematocrit Auto (Bld) [Volum e fraction]Ordered By: Monica Stewart on 05-29-2025 Hematocrit (Bld) [Volume fraction] 32.2 % Low 36.0-48.0 [facility] Hemoglobin A1c percentageOrd ered By: Monica Stewart on 05-29-2025 HbA1c (Bld) [Mass fraction] 8.9 % High 4.5-6.2 [facility] Hemoglobin [Mass/volume] in BloodOrdered By: Monica Stewart on 05-29-2025 Hemoglobin (Bld) [Mass/Vol] 10.6 g/dL Low 12.0-16.0 [facility] Leukocytes [#/volume] correc gali for nucleated erythrocytes in Blood by Automated counOrdered By: Monica Stewart on 05-29-2025 WBC corrected for nucl RBC Auto (Bld) [#/Vol] 19.8 10 3/uL High 4.0-11.0 [facility] MCH Auto (RBC) [Entitic mass ]Ordered By: Monica Stewart on 05-29-2025 MCH (RBC) [Entitic mass] 29.9 pg 26.7-34.0 [facility] MCHC Auto (RBC) [Mass/Vol]Or dered By: Monica Stewart on 05-29-2025 MCHC (RBC) [Mass/Vol] 32.9 g/dL 29.9-35.2 [facility] MCV Auto (RBC) [Entitic vol] Ordered By: Monica Stewart on 05-29-2025 MCV (RBC) [Entitic vol] 91.0 fL 81.0-99.0 [facility] No Panel InformationOrdered By: Monica Stewart on 05-29-2025 1.2 mg/dL Low 1.8-2.4 [facility] 0.00 10 3/uL 0.00-0.70 [facility] 27.5 [facility] 42.0 mg/dL High 7.0-18.0 [facility] 8.3 mg/dL Low 8.5-10.1 [facility] 105 mmol/L 98-107 [facility] 0.59 10 3/uL Low 1.20-3.80 [facility] 28.4 mmol/L 21.0-32.0 [facility] 3.0 % Low 20.5-60.0 [facility] 1.53 mg/dL High 0.55-1.02 [facility] 1.18 10 3/uL High 0.30-0.80 [facility] 40 Low >=60 mL/min/1.73 m 2 [facility] 6.0 % 1.7-12.0 [facility] 18.01 10 3/uL High 1.4-6.5 [facility] 130 mg/dL High 74-106 [facility] 3.8 mmol/L 3.5-5.1 [facility] 143 mmol/L 136-145 [facility] Platelet mean volume Auto (B ld) [Entitic vol]Ordered By: Monica Stewart on 05-29-2025 Platelet mean volume (Bld) [Entitic vol] 10.3 fL 9.5-13.5 [facility] Platelets Auto (Bld) [#/Vol] Ordered By: Monica Stewart on 05-29-2025 Platelets (Bld) [#/Vol] 208 10 3/uL 150-450 [facility] RBC Auto (Bld) [#/Vol]Ordere d By: Monica Stewart on 05-29-2025 RBC (Bld) [#/Vol] 3.54 10 6/uL Low 4.20-5.40 [facility] Segmented neutrophils/100 WB C Manual cnt (Bld)Ordered By: Monica Stewart on 05-29-2025 Segmented neutrophils/100 WBC (Bld) 91.0 % High 43.0-75.0 [facility] Serum or plasma anion gap de terminationOrdered By: Monica Stewart on 05-29-2025 Anion gap [Moles/Vol] 13.4 mmol/L [facility] Basophils Auto (Bld) [#/Vol] Ordered By: Analisa Bryant on 05-28-2025 Basophils (Bld) [#/Vol] 0.1 10 3/uL 0.0-0.1 [facility] Basophils/100 WBC Auto (Bld) Ordered By: Analisa Bryant on 05-28-2025 Basophils/100 WBC (Bld) 1.3 % 0.2-2.0 [facility] Eosinophils/100 WBC Auto (Bl d)Ordered By: Analisa Bryant on 05-28-2025 Eosinophils/100 WBC (Bld) 3.3 % 0.9-7.0 [facility] Erythrocyte distribution wid th Auto (RBC) [Ratio]Ordered By: Analisa Bryant on 05-28-2025 Erythrocyte distribution width (RBC) [Ratio] 16.9 % High 11.0-15.0 [facility] Estimated glomerular filtrat ion rate (GFR) non- AmericanOrdered By: Analisa Bryant on 05-28-2025 GFR/1.73 sq M.predicted among non-blacks MDRD (S/P/Bld) [Vol rate/Area] 34 mL/min/{1.73_m2} Low >=60 mL/min/1.73 m 2 [facility] Hematocrit Auto (Bld) [Volum e fraction]Ordered By: Analisa Bryant on 05-28-2025 Hematocrit (Bld) [Volume fraction] 34.4 % Low 36.0-48.0 [facility] Hemoglobin [Mass/volume] in BloodOrdered By: Analisa Bryant on 05-28-2025 Hemoglobin (Bld) [Mass/Vol] 11.2 g/dL Low 12.0-16.0 [facility] Leukocytes [#/volume] correc gali for nucleated erythrocytes in Blood by Automated counOrdered By: Analisa Bryant on 05-28-2025 WBC corrected for nucl RBC Auto (Bld) [#/Vol] 6.9 10 3/uL 4.0-11.0 [facility] Lymphocytes Auto (Bld) [#/Vo l]Ordered By: Analisa Bryant on 05-28-2025 Lymphocytes (Bld) [#/Vol] 1.4 10 3/uL 1.2-3.8 [facility] Lymphocytes/100 WBC Auto (Bl d)Ordered By: Analisa Bryant on 05-28-2025 Lymphocytes/100 WBC (Bld) 20.0 % Low 20.5-60.0 [facility] MCH Auto (RBC) [Entitic mass ]Ordered By: Analisa Bryant on 05-28-2025 MCH (RBC) [Entitic mass] 29.7 pg 26.7-34.0 [facility] MCHC Auto (RBC) [Mass/Vol]Or dered By: Analisa Bryant on 05-28-2025 MCHC (RBC) [Mass/Vol] 32.6 g/dL 29.9-35.2 [facility] MCV Auto (RBC) [Entitic vol] Ordered By: Analisa Bryant on 05-28-2025 MCV (RBC) [Entitic vol] 91.2 fL 81.0-99.0 [facility] Monocytes Auto (Bld) [#/Vol] Ordered By: Analisa Bryant on 05-28-2025 Monocytes (Bld) [#/Vol] 0.6 10 3/uL 0.3-0.8 [facility] Monocytes/100 WBC Auto (Bld) Ordered By: Analisa Bryant on 05-28-2025 Monocytes/100 WBC (Bld) 8.9 % 1.7-12.0 [facility] Neutrophils Auto (Bld) [#/Vo l]Ordered By: Analisa Bryant on 05-28-2025 Neutrophils (Bld) [#/Vol] 4.6 10 3/uL 1.4-6.5 [facility] Neutrophils/100 WBC Auto (Bl d)Ordered By: Analisa Bryant on 05-28-2025 Neutrophils/100 WBC (Bld) 66.4 % 43.0-75.0 [facility] No Panel InformationOrdered By: Analisa Bryant on 05-28-2025 NO [facility] SEEN #/LPF Abnormal NONE SEEN [facility] Seen #/HPF Abnormal None Seen [facility] RARE [facility] TRACE #/HPF Abnormal NONE SEEN [facility] Negative NEGATIVE [facility] SMALL Abnormal NEGATIVE [facility] CLEAR CLEAR [facility] LT. YELLOW YELLOW [facility] 100 mg/dL Abnormal NEGATIVE [facility] NONE SEEN NONE SEEN [facility] 7.0 5.0-9.0 [facility] >=300 mg/dL Abnormal NEG/TRACE [facility] 0-2 #/HPF Abnormal NONE SEEN [facility] 1.020 1.005-1.025 [facility] RARE #/LPF NONE/RARE [facility] 0.2 EU/dL 0.2-1.0 [facility] 6395.0 pg/mL Critically high <=1800.0 [facility] 18.7 pg/mL 4.0-51.3 [facility] 32.4 [facility] 48.0 mg/dL High 7.0-18.0 [facility] 0.2 10 3/uL 0.0-0.7 [facility] 8.5 mg/dL 8.5-10.1 [facility] 107 mmol/L 98-107 [facility] 29.3 mmol/L 21.0-32.0 [facility] 1.48 mg/dL High 0.55-1.02 [facility] 0.01 10 3/uL 0.00-0.03 [facility] 41 Low >=60 mL/min/1.73 m 2 [facility] 0.1 % 0.0-0.5 [facility] 64 mg/dL Low 74-106 [facility] 4.1 mmol/L 3.5-5.1 [facility] 143 mmol/L 136-145 [facility] Platelet mean volume Auto (B ld) [Entitic vol]Ordered By: Analisa Bryant on 05-28-2025 Platelet mean volume (Bld) [Entitic vol] 10.0 fL 9.5-13.5 [facility] Platelets Auto (Bld) [#/Vol] Ordered By: Analisa Bryant on 05-28-2025 Platelets (Bld) [#/Vol] 236 10 3/uL 150-450 [facility] RBC Auto (Bld) [#/Vol]Ordere d By: Analisa Bryant on 05-28-2025 RBC (Bld) [#/Vol] 3.77 10 6/uL Low 4.20-5.40 [facility] Serum or plasma anion gap de terminationOrdered By: Analisa Bryant on 05-28-2025 Anion gap [Moles/Vol] 10.8 mmol/L [facility] Basophils Auto (Bld) [#/Vol] Ordered By: Cheng Aviles on 05-11-2025 Basophils (Bld) [#/Vol] 0.1 10 3/uL 0.0-0.1 [facility] Basophils/100 WBC Auto (Bld) Ordered By: Cheng Aviles on 05-11-2025 Basophils/100 WBC (Bld) 1.2 % 0.2-2.0 [facility] Eosinophils/100 WBC Auto (Bl d)Ordered By: Cheng Aviles on 05-11-2025 Eosinophils/100 WBC (Bld) 2.7 % 0.9-7.0 [facility] Erythrocyte distribution wid th Auto (RBC) [Ratio]Ordered By: Cheng Aviles on 05-11-2025 Erythrocyte distribution width (RBC) [Ratio] 15.7 % High 11.0-15.0 [facility] Estimated glomerular filtrat ion rate (GFR) non- AmericanOrdered By: Rica Kaplan on 05-11-2025 GFR/1.73 sq M.predicted among non-blacks MDRD (S/P/Bld) [Vol rate/Area] 36 mL/min/{1.73_m2} Low >=60 mL/min/1.73 m 2 [facility] Hematocrit Auto (Bld) [Volum e fraction]Ordered By: Cheng Aviles on 05-11-2025 Hematocrit (Bld) [Volume fraction] 34.2 % Low 36.0-48.0 [facility] Hemoglobin [Mass/volume] in BloodOrdered By: Cheng Aviles on 05-11-2025 Hemoglobin (Bld) [Mass/Vol] 10.9 g/dL Low 12.0-16.0 [facility] Laboratory - Chemistry and C hemistry - challengeOrdered By: Rica Kaplan on 05-11-2025 Calcium [Mass/Vol] 8.6 mg/dL 8.5-10.1 [facility] Chloride [Moles/Vol] 107 mmol/L 98-107 [facility] CO2 [Moles/Vol] 27.7 mmol/L 21.0-32.0 [facility] Creatinine [Mass/Vol] 1.40 mg/dL High 0.55-1.02 [facility] GFR/1.73 sq M.predicted MDRD (S/P/Bld) [Vol rate/Area] 44 mL/min/{1.73_m2} Low >=60 mL/min/1.73 m 2 [facility] Glucose [Mass/Vol] 93 mg/dL 74-106 [facility] Potassium [Moles/Vol] 4.2 mmol/L 3.5-5.1 [facility] Sodium [Moles/Vol] 144 mmol/L 136-145 [facility] Urea nitrogen [Mass/Vol] 34.0 mg/dL High 7.0-18.0 [facility] Urea nitrogen/Creatinine [Mass ratio] 24.3 mg/mg [facility] Laboratory - Hematology and Cell countsOrdered By: Cheng Aviles on 05-11-2025 Immature granulocytes/100 WBC (Bld) 0.4 % 0.0-0.5 [facility] Leukocytes [#/volume] correc gali for nucleated erythrocytes in Blood by Automated counOrdered By: Cheng Aviles on 05-11-2025 WBC corrected for nucl RBC Auto (Bld) [#/Vol] 8.5 10 3/uL 4.0-11.0 [facility] Lymphocytes Auto (Bld) [#/Vo l]Ordered By: Cheng Aviles on 05-11-2025 Lymphocytes (Bld) [#/Vol] 1.4 10 3/uL 1.2-3.8 [facility] Lymphocytes/100 WBC Auto (Bl d)Ordered By: Cheng Aviles on 05-11-2025 Lymphocytes/100 WBC (Bld) 16.0 % Low 20.5-60.0 [facility] MCH Auto (RBC) [Entitic mass ]Ordered By: Cheng Aviles on 05-11-2025 MCH (RBC) [Entitic mass] 28.5 pg 26.7-34.0 [facility] MCHC Auto (RBC) [Mass/Vol]Or dered By: Cheng Aviles on 05-11-2025 MCHC (RBC) [Mass/Vol] 31.9 g/dL 29.9-35.2 [facility] MCV Auto (RBC) [Entitic vol] Ordered By: Cheng Aviles on 05-11-2025 MCV (RBC) [Entitic vol] 89.5 fL 81.0-99.0 [facility] Monocytes Auto (Bld) [#/Vol] Ordered By: Cheng Aviles on 05-11-2025 Monocytes (Bld) [#/Vol] 0.6 10 3/uL 0.3-0.8 [facility] Monocytes/100 WBC Auto (Bld) Ordered By: Cheng Aviles on 05-11-2025 Monocytes/100 WBC (Bld) 7.5 % 1.7-12.0 [facility] Neutrophils Auto (Bld) [#/Vo l]Ordered By: Cheng Aviles on 05-11-2025 Neutrophils (Bld) [#/Vol] 6.1 10 3/uL 1.4-6.5 [facility] Neutrophils/100 WBC Auto (Bl d)Ordered By: Cheng Aviles on 05-11-2025 Neutrophils/100 WBC (Bld) 72.2 % 43.0-75.0 [facility] No Panel InformationOrdered By: Cheng Aviles on 05-11-2025 Eosinophils # (Auto) 0.2 10 3/uL 0.0-0.7 [facility] Immature Granulocyte # (Auto) 0.03 10 3/uL 0.00-0.03 [facility] 0.2 10 3/uL 0.0-0.7 [facility] 0.03 10 3/uL 0.00-0.03 [facility] 0.4 % 0.0-0.5 [facility] No Panel InformationOrdered By: Rica Kaplan on 05-11-2025 24.3 [facility] 34.0 mg/dL High 7.0-18.0 [facility] 8.6 mg/dL 8.5-10.1 [facility] 107 mmol/L 98-107 [facility] 27.7 mmol/L 21.0-32.0 [facility] 1.40 mg/dL High 0.55-1.02 [facility] 44 Low >=60 mL/min/1.73 m 2 [facility] 93 mg/dL 74-106 [facility] 4.2 mmol/L 3.5-5.1 [facility] 144 mmol/L 136-145 [facility] Platelet mean volume Auto (B ld) [Entitic vol]Ordered By: Cheng Aviles on 05-11-2025 Platelet mean volume (Bld) [Entitic vol] 10.0 fL 9.5-13.5 [facility] Platelets Auto (Bld) [#/Vol] Ordered By: Cheng Aviles on 05-11-2025 Platelets (Bld) [#/Vol] 279 10 3/uL 150-450 [facility] RBC Auto (Bld) [#/Vol]Ordere d By: Cheng Aviles on 05-11-2025 RBC (Bld) [#/Vol] 3.82 10 6/uL Low 4.20-5.40 [facility] Serum or plasma anion gap de terminationOrdered By: Rica Kaplan on 05-11-2025 Anion gap [Moles/Vol] 13.5 mmol/L [facility] Telephoneon 05-07-2025 Telephone [id number] Joe Call 1945 F Date Provider Department Center 05/07/2025 DESHAWN PHILLIP [facility] Family History Problem Relation Age of Onset Heart disease Mother Heart attack Father Coronary artery disease Other Diabetes Other Polycystic kidney disease Other Family Status - Relation Status Age at Mother Father Sister Brother Other Normal [facility] Office Visiton 04-22-2025 Follow-up visit [id number] Joe Call 1945 F Date Provider Department Center 04/22/2025 RICA DEAN [facility] Family History Problem Relation Age of Onset Heart disease Mother Heart attack Father Coronary artery disease Other Diabetes Other Polycystic kidney disease Other Family Status - Relation Status Age at Mother Father Sister Brother Other Level of Service:97544 [place] OFFICE/OUTPATIENT ESTABLISHED HIGH MDM 40 MIN Normal [facility] Alanine aminotransferase [En zymatic activity/volume] in Serum or PlasmaOrdered By: Jorge Calix on 03-12-2025 ALT [Catalytic activity/Vol] Alanine aminotransferase [Enzymatic activity/volume] in Serum or Plasma 7-52 [facility] ALT [Catalytic activity/Vol] 9 U/L Normal 7-52 [facility] Comment on above: Performed By: #### B MAINTENANCE TEAM MEMBER, HS TROP, PT, CBC, BMP #### [facility] [address] [place] [address] [place] Albumin [Mass/volume] in Ser um or Plasma by Bromocresol green (BCG) dye binding methoOrdered By: Jorge Calix on 03-12-2025 Albumin BCG dye [Mass/Vol] Albumin [Mass/volume] in Serum or Plasma by Bromocresol green (BCG) dye binding metho Low 3.5-5.7 [facility] Albumin BCG dye [Mass/Vol] 3.0 g/dL Low 3.5-5.7 [facility] Alkaline phosphatase [Enzyma tic activity/volume] in Serum or PlasmaOrdered By: Jorge Calix on 03-12-2025 ALP [Catalytic activity/Vol] Alkaline phosphatase [Enzymatic activity/volume] in Serum or Plasma 34-104 [facility] ALP [Catalytic activity/Vol] 104 U/L Normal 34-104 [facility] Comment on above: Performed By: #### B MAINTENANCE TEAM MEMBER, HS TROP, PT, CBC, BMP #### [address] Appearance of UrineOrdered B y: Jorge Calix on 03-12-2025 Appearance (U) Urine appearance Clear [facility] Appearance (U) Clear Normal Clear [facility] Comment on above: Order Comment: Name Collection Type:: Other Performed By: #### B MAINTENANCE TEAM MEMBER, HS TROP, PT, CBC, BMP #### [facility] [address] [place] [address] [place] Aspartate aminotransferase [ Enzymatic activity/volume] in Serum or PlasmaOrdered By: Jorge Calix on 03-12-2025 AST [Catalytic activity/Vol] Aspartate aminotransferase [Enzymatic activity/volume] in Serum or Plasma Low 13-39 [facility] AST [Catalytic activity/Vol] 11 U/L Low 13-39 [facility] Comment on above: Performed By: #### B MAINTENANCE TEAM MEMBER, HS TROP, PT, CBC, BMP #### [facility] [address] [place] [address] BNP ser/plasOrdered By: Steven Calix on 03-12-2025 Natriuretic peptide B (Bld) [Mass/Vol] 773.0 pg/mL High 5-100 [facility] Comment on above: Result Comment: PERF ORMED BY: [place] [address] PATHOLOGIST CONFIGURATION MANAGEMENT ANALYST MAY HYDE M.D. Performed By: #### B MAINTENANCE TEAM MEMBER, HS TROP, PT, CBC, BMP #### [address] Bacteria [Presence] in Urine by AutomatedOrdered By: Jorge Calix on 03-12-2025 Bacteria Auto Ql (U) Bacteria [Presence] in Urine by Automated High None Seen [facility] Bacteria Auto Ql (U) 2+ [HPF] High None Seen [facility] Basic Metabolic Panelon 05 Creatinine Clr Calc Pharmacy 35.31 Normal [facility] Comment on above: Performed By: #### B MAINTENANCE TEAM MEMBER, HS TROP, PT, CBC, BMP #### [address] Estimated GFR 31.389 mL/Min Normal [facility] Comment on above: Performed By: #### B MAINTENANCE TEAM MEMBER, HS TROP, PT, CBC, BMP #### [address] Basophils Auto (Bld) [#/Vol] Ordered By: Jorge Calix on 03-12-2025 Basophils (Bld) [#/Vol] Automated basophil count 0.0-0.2 [facility] Basophils [#/volume] in Bloo d by Automated countOrdered By: Jorge Calix on 03-12-2025 Basophils (Bld) [#/Vol] 0.1 10*3/uL Normal 0.0-0.2 [facility] Comment on above: Result Comment: PERF ORMED BY: [place] [id number] PATHOLOGIST CONFIGURATION MANAGEMENT ANALYST MAY HYDE M.D. Performed By: #### B MAINTENANCE TEAM MEMBER, HS TROP, PT, CBC, BMP #### [facility] [address] [place] [address] Basophils/100 WBC Auto (Bld) Ordered By: Jorge Calix on 03-12-2025 Basophils/100 WBC (Bld) Automated basophil % . [facility] Basophils/100 leukocytes in Blood by Automated countOrdered By: Jorge Calix on 03-12-2025 Basophils/100 WBC (Bld) 0.8 % Normal . [facility] Comment on above: Performed By: #### B MAINTENANCE TEAM MEMBER, HS TROP, PT, CBC, BMP #### [address] Bilirubin Test strip Ql (U)O rdered By: Jorge Calix on 03-12-2025 Bilirubin Ql (U) Bilirubin.total [Presence] in Urine by Test strip Negative [facility] Bilirubin Ql (U) Negative Negative [facility] Bilirubin.direct [Mass/volum e] in Serum or PlasmaOrdered By: Jorge Calix on 03-12-2025 Bilirubin.direct [Mass/Vol] Bilirubin.direct [Mass/volume] in Serum or Plasma 0.03-0.18 [facility] Bilirubin.direct [Mass/Vol] 0.10 mg/dL 0.03-0.18 [facility] Bilirubin.total [Mass/volume ] in Serum or PlasmaOrdered By: Jorge Calix on 03-12-2025 Bilirubin [Mass/Vol] Bilirubin.total [Mass/volume] in Serum or Plasma 0.3-1.0 [facility] Bilirubin [Mass/Vol] 0.5 mg/dL Normal 0.3-1.0 [facility] Comment on above: Performed By: #### B MAINTENANCE TEAM MEMBER, HS TROP, PT, CBC, BMP #### [address] Calcium [Mass/volume] in Ser um or PlasmaOrdered By: Jorge Calix on 03-12-2025 Calcium [Mass/Vol] Calcium [Mass/volume ] in Serum or Plasma Low 8.6-10.3 [facility] Calcium [Mass/Vol] 8.3 mg/dL Low 8.6-10.3 [facility] Comment on above: Performed By: #### B MAINTENANCE TEAM MEMBER, HS TROP, PT, CBC, BMP #### [facility] [address] Capillary blood glucose wander urement by glucometer (mass/volume)Ordered By: Jorge Calix on 03-12-2025 Glucose [Mass/Vol] 364 mg/dL Normal [facility] Comment on above: Random Glucose Refer ence Range is dependent on time and content of last meal. Glucose of more than 200 mg/dL in a nonstressed, ambulatory subject supports the diagnosis of Diabetes Mellitus. Result Comment: [place] Glucose Reference Range is dependent on time and content of last meal. Glucose of more than 200 mg/dL in a nonstressed, ambulatory subject supports the diagnosis of Diabetes Mellitus. PERFORMED BY: [address] [place] [id number] PATHOLOGIST CONFIGURATION MANAGEMENT ANALYST MAY HYDE M.D. Performed By: #### B MAINTENANCE TEAM MEMBER, HS TROP, PT, CBC, BMP #### [address] Carbon dioxide, total [Moles /volume] in Serum or PlasmaOrdered By: Jorge Calix on 03-12-2025 CO2 [Moles/Vol] Carbon dioxide, tota l [Moles/volume] in Serum or Plasma High 21.0-31.0 [facility] CO2 [Moles/Vol] 37.0 mmol/L High 21.0-31.0 [facility] Comment on above: Performed By: #### B MAINTENANCE TEAM MEMBER, HS TROP, PT, CBC, BMP #### [address] Chloride [Moles/volume] in S oziel or PlasmaOrdered By: Jorge Calix on 03-12-2025 Chloride [Moles/Vol] Chloride [Moles/vol ume] in Serum or Plasma Low 98-107 [facility] Chloride [Moles/Vol] 89 mmol/L Low 98-107 [facility] Comment on above: Performed By: #### B MAINTENANCE TEAM MEMBER, HS TROP, PT, CBC, BMP #### [address] Color Auto (U)Ordered By: Amilcar Calix on 03-12-2025 Color (U) Color of Urine by Auto Yellow [facility] Color of Urine by AutoOrdere d By: Jorge Calix on 03-12-2025 Color (U) Light-yellow Normal Yellow [facility] Comment on above: Order Comment: Name Collection Type:: Other Performed By: #### B MAINTENANCE TEAM MEMBER, HS TROP, PT, CBC, BMP #### [address] Complete Blood Count Auto Di ffon 03-12-2025 Mean Corpuscular HGB Conc 33.3 g/dL Normal 32.0-35.0 [facility] Comment on above: Performed By: #### B MAINTENANCE TEAM MEMBER, HS TROP, PT, CBC, BMP #### [address] Monocytes/100 WBC (Bld) 18.66 % Normal 0.00-20.00 [facility] Comment on above: Performed By: #### B MAINTENANCE TEAM MEMBER, HS TROP, PT, CBC, BMP #### [address] NRBC% 0.1 /100{WBC} Normal 0-0.5 [facility] Comment on above: Performed By: #### B MAINTENANCE TEAM MEMBER, HS TROP, PT, CBC, BMP #### [address] Creatine kinase [Enzymatic a ctivity/volume] in Serum or PlasmaOrdered By: Jorge Calix on 03-12-2025 CK [Catalytic activity/Vol] Creatine kinase [Enzymatic activity/volume] in Serum or Plasma 30 [facility] CK [Catalytic activity/Vol] 57 U/L Normal 30-223 [facility] Comment on above: Performed By: #### B MAINTENANCE TEAM MEMBER, HS TROP, PT, CBC, BMP #### [address] [place] [address] [place] Creatinine [Mass/volume] in Serum or PlasmaOrdered By: Jorge Calix on 03-12-2025 Creatinine [Mass/Vol] Creatinine [Mass/v olume] in Serum or Plasma High 0.60-1.20 [facility] Creatinine [Mass/Vol] 1.66 mg/dL High 0.60-1.20 [facility] Comment on above: Performed By: #### B MAINTENANCE TEAM MEMBER, HS TROP, PT, CBC, BMP #### [address] Dipstick and Microscopicon 0 03-12-2025 Bacteria,Urine 2+ High None Seen [facility] Comment on above: Order Comment: Name Collection Type:: Other Performed By: #### B MAINTENANCE TEAM MEMBER, HS TROP, PT, CBC, BMP #### [address] Bilirubin,Urine Negative Normal Negative [facility] Comment on above: Order Comment: Name Collection Type:: Other Performed By: #### B MAINTENANCE TEAM MEMBER, HS TROP, PT, CBC, BMP #### [address] Glucose Ql (U) >= High Normal [facility] Comment on above: Order Comment: Name Collection Type:: Other Performed By: #### B MAINTENANCE TEAM MEMBER, HS TROP, PT, CBC, BMP #### [address] Hyaline Casts,Urine 0-8 Normal 0-8 [facility] Comment on above: Order Comment: Name Collection Type:: Other Result Comment: PERF ORMED BY: [place] [address] PATHOLOGIST CONFIGURATION MANAGEMENT ANALYST MAY HYDE M.D. Performed By: #### B MAINTENANCE TEAM MEMBER, HS TROP, PT, CBC, BMP #### [address] Nitrite,Urine Negative Normal Negative [facility] Comment on above: Order Comment: Name Collection Type:: Other Performed By: #### B MAINTENANCE TEAM MEMBER, HS TROP, PT, CBC, BMP #### [address] Occult Blood,Urine Negative Normal Negative [facility] Comment on above: Order Comment: Name Collection Type:: Other Result Comment: PERF ORMED BY: [place] [address] PATHOLOGIST CONFIGURATION MANAGEMENT ANALYST MAY HYDE M.D. Performed By: #### B MAINTENANCE TEAM MEMBER, HS TROP, PT, CBC, BMP #### [address] RBC,Urine 1-2 Normal 0-4 [facility] Comment on above: Order Comment: Name Collection Type:: Other Performed By: #### B MAINTENANCE TEAM MEMBER, HS TROP, PT, CBC, BMP #### [address] Specificy Excel,Urine 1.012 Normal 1.001-1.030 [facility] Comment on above: Order Comment: Name Collection Type:: Other Performed By: #### B MAINTENANCE TEAM MEMBER, HS TROP, PT, CBC, BMP #### [address] Squamous Epithelial Cell,Urine 1-2 Normal 0-2 [facility] Comment on above: Order Comment: Name Collection Type:: Other Performed By: #### B MAINTENANCE TEAM MEMBER, HS TROP, PT, CBC, BMP #### [address] Urobilinogen,Urine Normal Normal Normal [facility] Comment on above: Order Comment: Name Collection Type:: Other Performed By: #### B MAINTENANCE TEAM MEMBER, HS TROP, PT, CBC, BMP #### [address] WBC,Urine 3-4 Normal 0-4 [facility] Comment on above: Order Comment: Name Collection Type:: Other Performed By: #### B MAINTENANCE TEAM MEMBER, HS TROP, PT, CBC, BMP #### [address] ECG 12 lead ECGon 03-12-2025 ECG 12 lead ECG [facility] Main [place] [address] [place] [address] Electrocardiograph Report Signed Patient: Joe Call MR#: [id number] 0 : 1945 Acct:[id number] Age/Sex: 79 / F ADM Date: 03/12/25 Loc: ER Room: Type: [facility] ER Attending Dr: Ordering Provider: Jorge Calix [...] 30 bpm Confirmed by Jorge Calix DO ([id number]) on 03/12/2025 6:57:40 PM Referred By: Electronically Signed By: Jorge Calix DO Transcribed By: MUS Signed By Jroge Calix DO 5 1857 Normal [facility] Eosinophils Auto (Bld) [#/Vo l]Ordered By: Jorge Calix on 03-12-2025 Eosinophils (Bld) [#/Vol] Automated eosinophil count 0.0-0.45 [facility] Eosinophils [#/volume] in Bl ood by Automated countOrdered By: Jorge Calix on 03-12-2025 Eosinophils (Bld) [#/Vol] 0.1 10*3/uL Normal 0.0-0.45 [facility] Comment on above: Performed By: #### B MAINTENANCE TEAM MEMBER, HS TROP, PT, CBC, BMP #### [address] Eosinophils/100 WBC Auto (Bl d)Ordered By: Jorge Calix on 03-12-2025 Eosinophils/100 WBC (Bld) Automated eosinophil % . [facility] Eosinophils/100 leukocytes i n Blood by Automated countOrdered By: Jorge Calix on 03-12-2025 Eosinophils/100 WBC (Bld) 1.0 % Normal . [facility] Comment on above: Performed By: #### B MAINTENANCE TEAM MEMBER, HS TROP, PT, CBC, BMP #### [facility] [address] Epithelial cells.squamous [# /area] in Urine sediment by Automated countOrdered By: Jorge Calix on 03-12-2025 Epithelial cells.squamous Auto (Urine sed) [#/Area] Epithelial cells.squamous [#/area] in Urine sediment by Automated count 0-2 [facility] Epithelial cells.squamous Auto (Urine sed) [#/Area] 1-2 [HPF] 0-2 [facility] Erythrocyte distribution wid th Auto (RBC) [Ratio]Ordered By: Jorge Calix on 03-12-2025 Erythrocyte distribution width (RBC) [Ratio] Erythrocyte distribution width [Ratio] by Automated count 11.9-15.3 [facility] Erythrocyte distribution wid th [Ratio] by Automated countOrdered By: Jorge Calix on 03-12-2025 Erythrocyte distribution width (RBC) [Ratio] 14.5 % Normal 11.9-15.3 [facility] Comment on above: Performed By: #### B MAINTENANCE TEAM MEMBER, HS TROP, PT, CBC, BMP #### [facility] [address] Erythrocytes [#/area] in Uri ne sediment by Automated countOrdered By: Jorge Calix on 03-12-2025 RBC Auto (Urine sed) [#/Area] Erythrocytes [#/area] in Urine sediment by Automated count 0-4 [facility] RBC Auto (Urine sed) [#/Area] 1-2 [HPF] 0-4 [facility] Erythrocytes [#/volume] in B lood by Automated countOrdered By: Jorge Calix on 03-12-2025 RBC (Bld) [#/Vol] 4.33 10*6/uL Normal 3.60-5.00 [facility] Comment on above: Performed By: #### B MAINTENANCE TEAM MEMBER, HS TROP, PT, CBC, BMP #### [facility] [address] [place] [id number] [facility] Globulin Calc (S) [Mass/Vol] Ordered By: Jorge Calix on 03-12-2025 Globulin (S) [Mass/Vol] Serum globulin measurement by calculation (mass/volume) [facility] Glucose Glucometer (BldC) [M ass/Vol]Ordered By: Jorge Calix on 03-12-2025 Glucose [Mass/Vol] Capillary blood gluc ose measurement by glucometer (mass/volume) [facility] Glucose [Mass/volume] in Ser um or PlasmaOrdered By: Jorge Calix on 03-12-2025 Glucose [Mass/Vol] Glucose [Mass/volume ] in Serum or Plasma Critically high 70-100 [facility] Glucose [Mass/Vol] 520 mg/dL Off scale high 70-100 [facility] Comment on above: Critical Result Call ed [...] recommended reference range Performed By: #### B MAINTENANCE TEAM MEMBER, HS TROP, PT, CBC, BMP #### [facility] [address] [place], [place] [id number] [facility] Glucose [Mass/volume] in Uri ne by Test stripOrdered By: Jorge Calix on 03-12-2025 Glucose Test strip (U) [Mass/Vol] Glucose [Mass/volume] in Urine by Test strip [facility] Normal [facility] Glucose Test strip (U) [Mass/Vol] >=1000 mg/dL [facility] Hematocrit Auto (Bld) [Volum e fraction]Ordered By: Jorge Calix on 03-12-2025 Hematocrit (Bld) [Volume fraction] Hematocrit [Volume Fraction] of Blood by Automated count 34.0-46.4 [facility] Hematocrit [Volume Fraction] of Blood by Automated countOrdered By: Jorge Calix on 03-12-2025 Hematocrit (Bld) [Volume fraction] 38.3 % Normal 34.0-46.4 [facility] Comment on above: Performed By: #### B MAINTENANCE TEAM MEMBER, HS TROP, PT, CBC, BMP #### [facility] [address] Hemoglobin Test strip Ql (U) Ordered By: Jorge Calix on 03-12-2025 Hemoglobin Ql (U) Hemoglobin [Presence ] in Urine by Test strip Negative [facility] Hemoglobin Ql (U) Negative Negative [facility] Hemoglobin [Mass/volume] in BloodOrdered By: Jorge Calix on 03-12-2025 Hemoglobin (Bld) [Mass/Vol] Hemoglobin [Mass/volume] in Blood 11.8-15.4 [facility] Hemoglobin (Bld) [Mass/Vol] 12.8 g/dL Normal 11.8-15.4 [facility] Comment on above: Performed By: #### B MAINTENANCE TEAM MEMBER, HS TROP, PT, CBC, BMP #### [facility] [address] Hepatic Panelon 03-12-2025 Albumin [Mass/Vol] 3.0 g/dL Low 3.5-5.7 [facility] Comment on above: Performed By: #### B MAINTENANCE TEAM MEMBER, HS TROP, PT, CBC, BMP #### [facility] [address] Bilirubin,Indirect 0.4 mg/dL Normal [facility] Comment on above: Performed By: #### B MAINTENANCE TEAM MEMBER, HS TROP, PT, CBC, BMP #### [facility] [address] Bilirubin.indirect [Mass/Vol] 0.10 mg/dL Normal 0.03-0.18 [facility] Comment on above: Performed By: #### B MAINTENANCE TEAM MEMBER, HS TROP, PT, CBC, BMP #### [facility] [address] Hyaline casts [#/area] in Ur ine sediment by Automated countOrdered By: Jorge Calix on 03-12-2025 Hyaline casts Auto (Urine sed) [#/Area] Hyaline casts [#/area] in Urine sediment by Automated count 0-8 [facility] Hyaline casts Auto (Urine sed) [#/Area] 0-8 [LPF] 0-8 [facility] INR in Platelet poor plasma by Coagulation assayOrdered By: Jorge Calix on 03-12-2025 INR Coag (PPP) [Relative time] INR in Platelet poor plasma by Coagulation assay [facility] INR Coag (PPP) [Relative time] 1.7 {INR} Normal [facility] Comment on above: INR Therapeutic Rang [...] heart valves: 3 - 4.5 PERFORMED BY: [place] [address] PATHOLOGIST CONFIGURATION MANAGEMENT ANALYST MAY HYDE M.D. Performed By: #### B MAINTENANCE TEAM MEMBER, HS TROP, PT, CBC, BMP #### [address] Ketones Test strip Ql (U)Ord ered By: Jorge Calix on 03-12-2025 Ketones Ql (U) Ketones [Presence] i n Urine by Test strip Negative [facility] Ketones [Presence] in Urine by Test stripOrdered By: Jorge Calix on 03-12-2025 Ketones Ql (U) Negative Normal Negative [facility] Comment on above: Order Comment: Name Collection Type:: Other Performed By: #### B MAINTENANCE TEAM MEMBER, HS TROP, PT, CBC, BMP #### [facility] [address] [place] [address] [place] Leukocyte esterase [Presence ] in Urine by Test stripOrdered By: Jorge Calix on 03-12-2025 Leukocyte esterase Test strip Ql (U) Leukocyte esterase [Presence] in Urine by Test strip Negative [facility] Leukocyte esterase Test strip Ql (U) Negative Normal Negative [facility] Comment on above: Order Comment: Name Collection Type:: Other Performed By: #### B MAINTENANCE TEAM MEMBER, HS TROP, PT, CBC, BMP #### [facility] [address] Leukocytes [#/area] in Urine sediment by Automated countOrdered By: Jorge Calix on 03-12-2025 WBC Auto (Urine sed) [#/Area] Leukocytes [#/area] in Urine sediment by Automated count 0-4 [facility] WBC Auto (Urine sed) [#/Area] 3-4 [HPF] 0-4 [facility] Leukocytes [#/volume] correc gali for nucleated erythrocytes in Blood by Automated counOrdered By: Jorge Calix on 03-12-2025 WBC corrected for nucl RBC Auto (Bld) [#/Vol] Leukocytes [#/volume] corrected for nucleated erythrocytes in Blood by Automated coun 3.8-11.6 [facility] WBC corrected for nucl RBC Auto (Bld) [#/Vol] 9.0 10*3/uL 3.8-11.6 [facility] Leukocytes [#/volume] in Blo od by Automated countOrdered By: Jorge Calix on 03-12-2025 WBC (Bld) [#/Vol] 9.0 10*3/uL Normal 3.8-11.6 [facility] Comment on above: Performed By: #### B MAINTENANCE TEAM MEMBER, HS TROP, PT, CBC, BMP #### [facility] [address] [place] [address] [place] Lymphocytes Auto (Bld) [#/Vo l]Ordered By: Jorge Calix on 03-12-2025 Lymphocytes (Bld) [#/Vol] Lymphocytes [#/volume] in Blood by Automated count 1.00-4.8 [facility] Lymphocytes [#/volume] in Bl ood by Automated countOrdered By: Jorge Calix on 03-12-2025 Lymphocytes (Bld) [#/Vol] 1.3 10*3/uL Normal 1.00-4.8 [facility] Comment on above: Performed By: #### B MAINTENANCE TEAM MEMBER, HS TROP, PT, CBC, BMP #### [facility] [address] Lymphocytes/100 WBC Auto (Bl d)Ordered By: Jorge Calix on 03-12-2025 Lymphocytes/100 WBC (Bld) Lymphocytes/100 leukocytes in Blood by Automated count . [facility] Lymphocytes/100 leukocytes i n Blood by Automated countOrdered By: Jorge Calix on 03-12-2025 Lymphocytes/100 WBC (Bld) 14.2 % Normal . [facility] Comment on above: Performed By: #### B MAINTENANCE TEAM MEMBER, HS TROP, PT, CBC, BMP #### [address] MCH Auto (RBC) [Entitic mass ]Ordered By: Jorge Calix on 03-12-2025 MCH (RBC) [Entitic mass] MCH [Entitic mass] by Automated count 24.7-34.3 [facility] MCH [Entitic mass] by Automa gali countOrdered By: Jorge Calix on 03-12-2025 MCH (RBC) [Entitic mass] 29.5 pg Normal 24.7-34.3 [facility] Comment on above: Performed By: #### B MAINTENANCE TEAM MEMBER, HS TROP, PT, CBC, BMP #### [facility] [address] [place] [address] MCHC Auto (RBC) [Mass/Vol]Or dered By: Jorge Calix on 03-12-2025 MCHC (RBC) [Mass/Vol] MCHC [Mass/volume] by Automated count 32.0-35.0 [facility] MCHC (RBC) [Mass/Vol] 33.3 g/dL 32.0-35.0 [facility] MCV Auto (RBC) [Entitic vol] Ordered By: Jorge Calix on 03-12-2025 MCV (RBC) [Entitic vol] MCV [Entitic volume] by Automated count 80-100 [facility] MCV [Entitic volume] by Auto mated countOrdered By: Jorge Calix on 03-12-2025 MCV (RBC) [Entitic vol] 88.4 fL Normal 80-100 [facility] Comment on above: Performed By: #### B MAINTENANCE TEAM MEMBER, HS TROP, PT, CBC, BMP #### [facility] [address] Magnesium [Mass/volume] in S oziel or PlasmaOrdered By: Jorge Calix on 03-12-2025 Magnesium [Mass/Vol] Magnesium [Mass/vol ume] in Serum or Plasma Low 1.9-2.7 [facility] Magnesium [Mass/Vol] 1.1 mg/dL Low 1.9-2.7 [facility] Comment on above: Result Comment: PERF ORMED BY: [address] [place] [address] PATHOLOGIST CONFIGURATION MANAGEMENT ANALYST MAY HYDE M.D. Performed By: #### B MAINTENANCE TEAM MEMBER, HS TROP, PT, CBC, BMP #### [facility] [address] Monocyte distribution width [Entitic volume] in Blood by AutomatedOrdered By: Jorge Calix on 03-12-2025 Monocyte distribution width Auto (Bld) [Entitic vol] Monocyte distribution width [Entitic volume] in Blood by Automated 0.00-20.00 [facility] Monocyte distribution width Auto (Bld) [Entitic vol] 18.66 % 0.00-20.00 [facility] Monocytes Auto (Bld) [#/Vol] Ordered By: Jorge Calix on 03-12-2025 Monocytes (Bld) [#/Vol] Automated blood monocyte count 0.0-0.8 [facility] Monocytes [#/volume] in Bloo d by Automated countOrdered By: Jorge Calix on 03-12-2025 Monocytes (Bld) [#/Vol] 0.5 10*3/uL Normal 0.0-0.8 [facility] Comment on above: Performed By: #### B MAINTENANCE TEAM MEMBER, HS TROP, PT, CBC, BMP #### [facility] [address] [place] [address] [place] Monocytes/100 WBC Auto (Bld) Ordered By: Jorge Calix on 03-12-2025 Monocytes/100 WBC (Bld) Automated monocyte % . [facility] Monocytes/100 leukocytes in Blood by Automated countOrdered By: Jorge Calix on 03-12-2025 Monocytes/100 WBC (Bld) 5.9 % Normal . [facility] Comment on above: Performed By: #### B MAINTENANCE TEAM MEMBER, HS TROP, PT, CBC, BMP #### [facility] [address] Natriuretic peptide B [Mass/ Vol]Ordered By: Jorge Calix on 03-12-2025 Natriuretic peptide B (Bld) [Mass/Vol] BNP ser/plas High 5-100 [facility] Neutrophils Auto (Bld) [#/Vo l]Ordered By: Jorge Calix on 03-12-2025 Neutrophils (Bld) [#/Vol] Neutrophils [#/volume] in Blood by Automated count 1.8-7.7 [facility] Neutrophils [#/volume] in Bl ood by Automated countOrdered By: Jorge Calix on 03-12-2025 Neutrophils (Bld) [#/Vol] 7.0 10*3/uL Normal 1.8-7.7 [facility] Comment on above: Performed By: #### B MAINTENANCE TEAM MEMBER, HS TROP, PT, CBC, BMP #### [facility] [address] [place] [address] [place] Neutrophils/100 WBC Auto (Bl d)Ordered By: Jorge Calix on 03-12-2025 Neutrophils/100 WBC (Bld) Automated neutrophil % . [facility] Neutrophils/100 leukocytes i n Blood by Automated countOrdered By: Jorge Calix on 03-12-2025 Neutrophils/100 WBC (Bld) 78.1 % Normal . [facility] Comment on above: Performed By: #### B MAINTENANCE TEAM MEMBER, HS TROP, PT, CBC, BMP #### [facility] [address] [place] [id number] [facility] Nitrite Test strip Ql (U)Ord ered By: Jorge Calix on 03-12-2025 Nitrite Ql (U) Nitrite [Presence] i n Urine by Test strip Negative [facility] Nitrite Ql (U) Negative Negative [facility] No Panel InformationOrdered By: Jorge Calix on 03-12-2025 Estimated GFR (CKD-EPI) 31.389 mL/Min [facility] Creatinine Clearance (Chem 35.31 [facility] 31.389 mL/Min [facility] 35.31 [facility] Nucleated erythrocytes [Pres ence] in Blood by Automated countOrdered By: Jorge Calix on 03-12-2025 Nucleated RBC Auto Ql (Bld) Nucleated erythrocytes [Presence] in Blood by Automated count 0-0.5 [facility] Nucleated RBC Auto Ql (Bld) 0.1 /100{WBC} 0-0.5 [facility] Platelet mean volume Auto (B ld) [Entitic vol]Ordered By: Jorge Calix on 03-12-2025 Platelet mean volume (Bld) [Entitic vol] Platelet mean volume [Entitic volume] in Blood by Automated count 6.3-10.7 [facility] Platelet mean volume [Entiti c volume] in Blood by Automated countOrdered By: Jorge Calix on 03-12-2025 Platelet mean volume (Bld) [Entitic vol] 9.6 fL Normal 6.3-10.7 [facility] Comment on above: Performed By: #### B MAINTENANCE TEAM MEMBER, HS TROP, PT, CBC, BMP #### [facility] [address] [place] [id number] [place] Platelets Auto (Bld) [#/Vol] Ordered By: Jorge Calix on 03-12-2025 Platelets (Bld) [#/Vol] Platelets [#/volume] in Blood by Automated count 150-450 [facility] Platelets [#/volume] in Bloo d by Automated countOrdered By: Jorge Calix on 03-12-2025 Platelets (Bld) [#/Vol] 194 10*3/uL Normal 150-450 [facility] Comment on above: Performed By: #### B MAINTENANCE TEAM MEMBER, HS TROP, PT, CBC, BMP #### [facility] [address] Potassium [Moles/volume] in Serum or PlasmaOrdered By: Jorge Calix on 03-12-2025 Potassium [Moles/Vol] Potassium [Moles/v olume] in Serum or Plasma 3.5-5.1 [facility] Potassium [Moles/Vol] 4.0 mmol/L Normal 3.5-5.1 [facility] Comment on above: Performed By: #### B MAINTENANCE TEAM MEMBER, HS TROP, PT, CBC, BMP #### [facility] [address] Protein Test strip (U) [Mass /Vol]Ordered By: Jorge Calix on 03-12-2025 Protein (U) [Mass/Vol] Protein [Mass/vol ume] in Urine by Test strip High Negative [facility] Protein [Mass/volume] in Ser um or PlasmaOrdered By: Jorge Calix on 03-12-2025 Protein [Mass/Vol] Protein [Mass/volume ] in Serum or Plasma 6.4-8.9 [facility] Protein [Mass/Vol] 7.0 g/dL Normal 6.4-8.9 [facility] Comment on above: Performed By: #### B MAINTENANCE TEAM MEMBER, HS TROP, PT, CBC, BMP #### [facility] [address] Protein [Mass/volume] in Uri ne by Test stripOrdered By: Jorge Calix on 03-12-2025 Protein (U) [Mass/Vol] 200 mg/dL High Negative [facility] Comment on above: Order Comment: Name Collection Type:: Other Performed By: #### B MAINTENANCE TEAM MEMBER, HS TROP, PT, CBC, BMP #### [facility] [address] Prothrombin time (PT)Ordered By: Jorge Calix on 03-12-2025 PT Coag (PPP) [Time] Prothrombin time (PT) High 9.0- 12.9 [facility] PT Coag (PPP) [Time] 19.3 s High 9.0-12.9 [facility] Comment on above: A hematocrit value g reater than 55% may lead to inaccurate results in coagulation testing. Patients having hematocrit values >55% require a special collection tube for coagulation studies. Please contact the laboratory at [phone] for redraw instructions. Result Comment: A he matocrit value greater than 55% may lead to inaccurate results in coagulation testing. Patients having hematocrit values >55% require a special collection tube for coagulation studies. Please contact the laboratory at [phone] for redraw instructions. Performed By: #### B MAINTENANCE TEAM MEMBER, HS TROP, PT, CBC, BMP #### [facility] [address] [place] [address] RBC Auto (Bld) [#/Vol]Ordere d By: Jorge Calix on 03-12-2025 RBC (Bld) [#/Vol] Erythrocytes [#/volu me] in Blood by Automated count 3.60-5.00 [facility] Serum globulin measurement b y calculation (mass/volume)Ordered By: Jorge Calix on 03-12-2025 Globulin (S) [Mass/Vol] 4.0 g/dL Normal [facility] Comment on above: Performed By: #### B MAINTENANCE TEAM MEMBER, HS TROP, PT, CBC, BMP #### [facility] [address] [place] [address] Serum or plasma albumin/glob ulin mass ratioOrdered By: Jorge Calix on 03-12-2025 Albumin/Globulin [Mass ratio] Serum or plasma albumin/globulin mass ratio [facility] Albumin/Globulin [Mass ratio] 0.8 {ratio} Normal [facility] Comment on above: Performed By: #### B MAINTENANCE TEAM MEMBER, HS TROP, PT, CBC, BMP #### [facility] [address] [place] [address] Serum or plasma anion gap de terminationOrdered By: Jorge Calix on 03-12-2025 Anion gap [Moles/Vol] Serum or plasma an ion gap determination 6.0-15.0 [facility] Anion gap [Moles/Vol] 12.0 mmol/L Normal 6.0-15.0 [facility] Comment on above: Performed By: #### B MAINTENANCE TEAM MEMBER, HS TROP, PT, CBC, BMP #### [address] Serum or plasma non-glucuron idated bilirubin measurement (mass/volume)Ordered By: Jorge Calix on 03-12-2025 Bilirubin.indirect [Mass/Vol] Serum or plasma non-glucuronidated bilirubin measurement (mass/volume) [facility] Bilirubin.indirect [Mass/Vol] 0.4 mg/dL [facility] Sodium [Moles/volume] in Ser um or PlasmaOrdered By: Jorge Calix on 03-12-2025 Sodium [Moles/Vol] Sodium [Moles/volume ] in Serum or Plasma Low 136-145 [facility] Sodium [Moles/Vol] 134 mmol/L Low 136-145 [facility] Comment on above: Performed By: #### B MAINTENANCE TEAM MEMBER, HS TROP, PT, CBC, BMP #### [address] Specific gravity Test strip (U) [Rel density]Ordered By: Jorge Calix on 03-12-2025 Specific gravity (U) [Rel density] Specific gravity of Urine by Test strip 1.001-1.030 [facility] Specific gravity (U) [Rel density] 1.012 1.001-1.030 [facility] Troponin I High Sensitivityo n 03-12-2025 Troponin I High Sensitivity 46 High 0-15 [facility] Comment on above: Result Comment: The Troponin units of report have been changed to meet the Chest Pain Accreditation requirement, element EC5.M1l2. Troponin units are changed from pg/ml to ng/L. Also, the decimal is removed and results are in whole numbers. PERFORMED BY: [place] [address] PATHOLOGIST CONFIGURATION MANAGEMENT ANALYST MAY HYDE M.D. Performed By: #### B MAINTENANCE TEAM MEMBER, HS TROP, PT, CBC, BMP #### [address] Troponin I.cardiac [Mass/vol ume] in Serum or Plasma by Detection limit <= 0.01 ng/Ordered By: Jorge Calix on 03-12-2025 Troponin I.cardiac DL <= 0.01 ng/mL [Mass/Vol] Troponin I.cardiac [Mass/volume] in Serum or Plasma by Detection limit <= 0.01 ng/ High [address] [place] [address] Troponin I.cardiac [Mass/vol ume] in Serum or Plasma by Detection limit <= 0.01 ng/mLOrdered By: Jorge Calix on 03-12-2025 Troponin I.cardiac DL <= 0.01 ng/mL [Mass/Vol] 46 ng/L High 015 [facility] Comment on above: The Troponin units o f report have been changed to meet the Chest Pain Accreditation requirement, element EC5.M1l2. Troponin units are changed from pg/ml to ng/L. Also, the decimal is removed and results are in whole numbers. Urea nitrogen [Mass/volume] in Serum or PlasmaOrdered By: Jorge Calix on 03-12-2025 Urea nitrogen [Mass/Vol] Urea nitrogen [Mass/volume] in Serum or Plasma [address] Urea nitrogen [Mass/Vol] 41 mg/dL [address] Comment on above: Performed By: #### B MAINTENANCE TEAM MEMBER, HS TROP, PT, CBC, BMP #### [address] Urobilinogen Test strip (U) [Mass/Vol]Ordered By: Jorge Calix on 03-12-2025 Urobilinogen (U) [Mass/Vol] Urobilinogen [Mass/volume] in Urine by Test strip Normal [facility] Urobilinogen (U) [Mass/Vol] Normal mg/dL Normal [facility] WBC Auto (Bld) [#/Vol]Ordere d By: Jorge Calix on 03-12-2025 WBC (Bld) [#/Vol] Leukocytes [#/volume ] in Blood by Automated count 3.8-11.6 [facility] X-ray reportOrdered By: Kirit Langston on 03-12-2025 Study report [facility] Work Phone: XR chest 1V portableon 03-12 XR chest 1V portable [facility] Main [place] [address] [place] [address] XRay Report Signed Patient: Joe Call MR#: [id number] 0 : 1945 Acct:[id number] Age/Sex: 79 / F ADM Date: 03/12/25 Loc: ER Room: Type: [facility] ER Attending Dr: Copies to: Jorge Calix [...] 03/12/2025 3:34 PM Dictation Location: [place] [address] Transcribed By: [facility] 03/12/25 1534 Dictated By: Vargas Langston MD 03/12/25 1532 Signed By: 03/12/25 1534 Normal [facility] pH Test strip (U)Ordered By: Jorge Calix on 03-12-2025 pH (U) pH of Urine by Test strip 5.0-9.0 [facility] pH of Urine by Test stripOrd ered By: Jorge Calix on 03-12-2025 pH (U) 7.0 [pH] Normal 5.0-9.0 [facility] Comment on above: Order Comment: Name Collection Type:: Other Performed By: #### B MAINTENANCE TEAM MEMBER, HS TROP, PT, CBC, BMP #### [place] [id number] [facility] Cholesterol in LDL Calc [Mas s/Vol]on 03-02-2025 Cholesterol in LDL [Mass/Vol] Cholesterol in LDL [Mass/volume] in Serum or Plasma by calculation [facility] Comment on above: <100 mg/dl [id number] 0-129 mg/dl NEAR OR ABOVE [id number] mg/dl BORDERLINE [id number] mg/dl HIGH>190 mg/dl VERY HIGH Cholesterol in LDL [Mass/Vol] 55.6 mg/dL [facility] Comment on above: <100 mg/dl [id number] 0-129 mg/dl NEAR OR ABOVE [id number] mg/dl BORDERLINE [id number] mg/dl HIGH>190 mg/dl VERY HIGH Cholesterol in VLDL Calc [Ma ss/Vol]on 03-02-2025 Cholesterol in VLDL [Mass/Vol] Cholesterol in VLDL [Mass/volume] in Serum or Plasma by calculation [facility] Cholesterol in VLDL [Mass/Vol] 24.4 mg/dL [facility] Erythrocyte distribution wid th Auto (RBC) [Ratio]on 03-02-2025 Erythrocyte distribution width (RBC) [Ratio] Erythrocyte distribution width [Ratio] by Automated count 11.0-15.0 [facility] Erythrocyte distribution width (RBC) [Ratio] 13.4 % 11.0-15.0 [facility] Estimated glomerular filtrat ion rate (GFR) non- Americanon 03-02-2025 GFR/1.73 sq M.predicted among non-blacks MDRD (S/P/Bld) [Vol rate/Area] Estimated glomerular filtration rate (GFR) non- Low >=60 mL/min/1.73 m 2 [facility] GFR/1.73 sq M.predicted among non-blacks MDRD (S/P/Bld) [Vol rate/Area] 27 mL/min/{1.73_m2} Low >=60 mL/min/1.73 m 2 [facility] Hematocrit Auto (Bld) [Volum e fraction]on 03-02-2025 Hematocrit (Bld) [Volume fraction] Hematocrit [Volume Fraction] of Blood by Automated count 36.0-48.0 [facility] Hematocrit (Bld) [Volume fraction] 38.7 % 36.0-48.0 [facility] Hemoglobin [Mass/volume] in Bloodon 03-02-2025 Hemoglobin (Bld) [Mass/Vol] Hemoglobin [Mass/volume] in Blood 12.0-16.0 [facility] Hemoglobin (Bld) [Mass/Vol] 12.9 g/dL 12.0-16.0 [facility] Iron binding capacity [Mass/ volume] in Serum or Plasmaon 03-02-2025 Iron binding capacity [Mass/Vol] Iron binding capacity [Mass/volume] in Serum or Plasma 250.0-450.0 [facility] Iron binding capacity [Mass/Vol] 278.0 ug/dL 250.0-450.0 [facility] Iron saturation [Mass Fracti on] in Serum or Plasmaon 03-02-2025 Iron saturation [Mass fraction] Iron saturation [Mass Fraction] in Serum or Plasma [facility] Iron saturation [Mass fraction] 22.3 % [facility] Laboratory - Chemistry and C hemistry - challengeon 03-02-2025 Albumin [Mass/Vol] 2.4 g/dL Low 3.4-5.0 [facility] Calcium [Mass/Vol] 8.1 mg/dL Low 8.5-10.1 [facility] Chloride [Moles/Vol] 96 mmol/L Low 98-107 [facility] Cholesterol [Mass/Vol] 136 mg/dL <=200 [facility] Cholesterol in HDL [Mass/Vol] 56 mg/dL 40-60 [facility] Comment on above: > or =60 mg/dl - LOW CARDIOVASCULAR RISK<40 mg/dl - HIGH CARDIOVASCULAR RISK CO2 [Moles/Vol] 31.2 mmol/L 21.0-32.0 [facility] Creatinine [Mass/Vol] 1.83 mg/dL High 0.55-1.02 [facility] Ferritin [Mass/Vol] 114.0 ng/mL 8.0-252.0 [facility] GFR/1.73 sq M.predicted MDRD (S/P/Bld) [Vol rate/Area] 32 mL/min/{1.73_m2} Low >=60 mL/min/1.73 m 2 [facility] Glucose [Mass/Vol] 337 mg/dL High 74-106 [facility] Iron [Mass/Vol] 62.0 ug/dL 50.0-170.0 [facility] Magnesium [Mass/Vol] 1.0 mg/dL Low 1.8-2.4 [facility] Natriuretic peptide B (Bld) [Mass/Vol] 4236.0 pg/mL Critically high <=1800.0 [facility] Comment on above: RESULTS CALLED TO AN BRYANNA ACUNA Potassium [Moles/Vol] 3.6 mmol/L 3.5-5.1 [facility] Sodium [Moles/Vol] 137 mmol/L 136-145 [facility] Triglyceride [Mass/Vol] 122 mg/dL <=150 [facility] Urate [Mass/Vol] 8.1 mg/dL High 2.6-6.0 [facility] Urea nitrogen [Mass/Vol] 53.0 mg/dL High 7.0-18.0 [facility] Urea nitrogen/Creatinine [Mass ratio] 29.0 mg/mg [facility] Bilirubin Ql (U) Negative NEGATIVE [facility] Glucose (U) [Mass/Vol] 250 mg/dL Abnormal NEGATIVE [facility] Ketones Ql (U) Negative NEGATIVE [facility] pH (U) 6.0 [pH] 5.0-9.0 [facility] Specific gravity (U) [Rel density] 1.020 1.005-1.025 [facility] Urobilinogen Qn (U) 0.2 {Meka'U}/dL 0.2-1.0 [facility] Laboratory - Specimen inform ationon 03-02-2025 Appearance (U) CLEAR CLEAR [facility] Color (U) LT. YELLOW YELLOW [facility] Laboratory - Urinalysison Leukocyte esterase Test strip Ql (U) Negative NEGATIVE [facility] Mucus Ql (Urine sed) TRACE Abnormal NONE SEEN [facility] Nitrite Ql (U) Negative NEGATIVE [facility] Protein (U) [Mass/Vol] 186.2 mg/dL High <=11.9 F [facility] Protein Ql (U) >=300 mg/dL Abnormal NEG/TRACE [facility] Leukocytes [#/volume] correc gali for nucleated erythrocytes in Blood by Automated counon 03-02-2025 WBC corrected for nucl RBC Auto (Bld) [#/Vol] Leukocytes [#/volume] corrected for nucleated erythrocytes in Blood by Automated coun 4.0-11.0 [facility] WBC corrected for nucl RBC Auto (Bld) [#/Vol] 8.7 10 3/uL 4.0-11.0 [facility] MCH Auto (RBC) [Entitic mass ]on 03-02-2025 MCH (RBC) [Entitic mass] MCH [Entitic mass] by Automated count 26.7-34.0 [facility] MCH (RBC) [Entitic mass] 29.4 pg 26.7-34.0 [facility] MCHC Auto (RBC) [Mass/Vol]on 03-02-2025 MCHC (RBC) [Mass/Vol] MCHC [Mass/volume] by Automated count 29.9-35.2 [facility] MCHC (RBC) [Mass/Vol] 33.3 g/dL 29.9-35.2 [facility] MCV Auto (RBC) [Entitic vol] on 03-02-2025 MCV (RBC) [Entitic vol] MCV [Entitic volume] by Automated count 81.0-99.0 [facility] MCV (RBC) [Entitic vol] 88.2 fL 81.0-99.0 [facility] No Panel Informationon 03-02 25-Hydroxy Vitamin D Total 10.8 ng/mL [facility] Comment on above: <20 ng/mL Vit D defi cient20-<30 ng/mL Vit D ixtvplitzvww38-996 ng/mL Vit D sufficient>100 ng/mL Potential Toxicity Parathyroid Hormone (Intact) 57 pg/mL [facility] Comment on above: Performed at: - [employer] [address] [id number] Director: Dimitri Landis PhD, Phone: [phone] Phosphorus Level 4.9 mg/dL High 2.6-4.7 [facility] 57 pg/mL [facility] 10.8 ng/mL [facility] 114.0 ng/mL 8.0-252.0 [facility] 4236.0 pg/mL Critically high <=1800.0 [facility] 1.0 mg/dL Low 1.8-2.4 [facility] 2.4 g/dL Low 3.4-5.0 [facility] 4.9 mg/dL High 2.6-4.7 [facility] 8.1 mg/dL Low 8.5-10.1 [facility] 136 mg/dL <=200 [facility] 29.0 [facility] 62.0 ug/dL 50.0-170.0 [facility] 56 mg/dL 40-60 [facility] 53.0 mg/dL High 7.0-18.0 [facility] 122 mg/dL <=150 [facility] 96 mmol/L Low 98-107 [facility] 31.2 mmol/L 21.0-32.0 [facility] 1.83 mg/dL High 0.55-1.02 [facility] 32 Low >=60 mL/min/1.73 m 2 [facility] 337 mg/dL High 74-106 [facility] 3.6 mmol/L 3.5-5.1 [facility] 137 mmol/L 136-145 [facility] Urine Bacteria SMALL #/HPF Abnormal NONE SEEN [facility] Urine Occult Blood TRACE-I NEGATIVE [facility] Urine Other Casts NONE SEEN #/LPF NONE SEEN [facility] Urine Other Crystals None Seen #/HPF None Seen [facility] Urine Random Creatinine 26.93 mg/dL 20.00-300.0 0 [facility] Urine RBC 2-5 #/HPF Abnormal 0-2 [facility] Urine Squamous Epithelial Cells FEW #/LPF Abnormal NONE/RARE [facility] Urine WBC NONE SEEN #/HPF NONE SEEN [facility] 26.93 mg/dL 20.00-300.0 0 [facility] 186.2 mg/dL High <=11.9 [facility] Office Visiton 03-02-2025 Follow-up visit [id number] Joe Call 1945 F Date Provider Department Center 03/02/2025 [id number] LUNA [facility] Family History Problem Relation Age of Onset Heart disease Mother Heart attack Father Coronary artery disease Other Diabetes Other Polycystic kidney disease Other Family Status - Relation Status Age at Mother Father Sister Brother Other Level of Service:72639 [place] OFFICE/OUTPATIENT ESTABLISHED MOD MDM 30 MIN Reason for Visit and Comments: 5 week follow up with Labs [Other] Normal [facility] Orders Onlyon 03-02-2025 Orders Only [id number] Joe Call Bela 1945 F Date Provider Department Center 03/02/2025 [facility] Family History Problem Relation Age of Onset Heart disease Mother Heart attack Father Coronary artery disease Other Diabetes Other Polycystic kidney disease Other Family Status - Relation Status Age at Mother Father Sister Brother Other Normal [facility] Platelet mean volume Auto (B ld) [Entitic vol]on 03-02-2025 Platelet mean volume (Bld) [Entitic vol] Platelet mean volume [Entitic volume] in Blood by Automated count 9.5-13.5 [facility] Platelet mean volume (Bld) [Entitic vol] 11.7 fL 9.5-13.5 [facility] Platelets Auto (Bld) [#/Vol] on 03-02-2025 Platelets (Bld) [#/Vol] Platelets [#/volume] in Blood by Automated count 150-450 [facility] Platelets (Bld) [#/Vol] 150 10 3/uL 150-450 [facility] RBC Auto (Bld) [#/Vol]on RBC (Bld) [#/Vol] Erythrocytes [#/volu me] in Blood by Automated count 4.20-5.40 [facility] RBC (Bld) [#/Vol] 4.39 10 6/uL 4.20-5.40 [facility] Serum or plasma anion gap de terminationon 03-02-2025 Anion gap [Moles/Vol] Serum or plasma an ion gap determination [facility] Anion gap [Moles/Vol] 13.4 mmol/L [facility] Serum or plasma total choles terol/high density lipoprotein (HDL) cholesterol mass herminia 03-02-2025 Cholesterol.total/Chol esterol in HDL [Mass ratio] Serum or plasma total cholesterol/high density lipoprotein (HDL) cholesterol mass rat [facility] Comment on above: 3.3 - 4.4 LOW RISK4. 4 - 7.1 AVERAGE RISK7.1 - 11.0 MODERATE RISK>11.0 HIGH RISK Cholesterol.total/Chol esterol in HDL [Mass ratio] 2.4 {ratio} [facility] Comment on above: 3.3 - 4.4 LOW RISK4. 4 - 7.1 AVERAGE RISK7.1 - 11.0 MODERATE RISK>11.0 HIGH RISK Urine protein/creatinine rat ioon 03-02-2025 Protein/Creatinine (U) [Ratio] Urine protein/creatinine ratio [facility] Protein/Creatinine (U) [Ratio] 6.91 [facility] Yeast detection in urine sed iment by light microscopyon 03-02-2025 Yeast LM Ql (Urine sed) SEEN Abnormal NONE SEEN [facility] Office Visiton 01-28-2025 Follow-up visit [id number] Joe Call 1945 F Date Provider Department Center 01/28/2025 [id number] LUNA [facility] Family History Problem Relation Age of Onset Coronary artery disease Other Diabetes Other Polycystic kidney disease Other Family Status - Relation Status Age at Other Level of Service:28262 [place] OFFICE/OUTPATIENT ESTABLISHED MOD [facility] 30 MIN Reason for Visit and Comments: Hypertension [368339] Congestive Heart Failure [127] - Discharged yesterday from [facility] for CHF. Discharge papers from [facility] do not have her on a diuretic. Patient believes she's taking furosemide 40mg every other day. Coronary Artery Disease [187] Atrial Fibrillation [80] - Denies lightheadedness/syncope and bleeding on Xarelto. Hyperlipidemia [182] - No lipids since last visit. Edema [[id number]] Shortness of Breath [821056] - Improving. Palpitations [326397] Fall [340924] - Fell a few days ago at home when she slipped on the carpet. Normal [facility] Basophils Auto (Bld) [#/Vol] on 01-27-2025 Basophils (Bld) [#/Vol] Automated basophil count 0.0-0.1 [facility] Basophils/100 WBC Auto (Bld) on 01-27-2025 Basophils/100 WBC (Bld) Automated basophil % 0.2-2.0 [facility] Eosinophils/100 WBC Auto (Bl d)on 01-27-2025 Eosinophils/100 WBC (Bld) Automated eosinophil % 0.9-7.0 [facility] Erythrocyte distribution wid th Auto (RBC) [Ratio]on 01-27-2025 Erythrocyte distribution width (RBC) [Ratio] Erythrocyte distribution width [Ratio] by Automated count 11.0-15.0 [facility] Estimated glomerular filtrat ion rate (GFR) non- Americanon 01-27-2025 GFR/1.73 sq M.predicted among non-blacks MDRD (S/P/Bld) [Vol rate/Area] Estimated glomerular filtration rate (GFR) non- Low >=60 mL/min/1.73 m 2 [facility] Globulin Calc (S) [Mass/Vol] on 01-27-2025 Globulin (S) [Mass/Vol] Serum globulin measurement by calculation (mass/volume) [facility] Hematocrit Auto (Bld) [Volum e fraction]on 01-27-2025 Hematocrit (Bld) [Volume fraction] Hematocrit [Volume Fraction] of Blood by Automated count 36.0-48.0 [facility] Hemoglobin [Mass/volume] in Bloodon 01-27-2025 Hemoglobin (Bld) [Mass/Vol] Hemoglobin [Mass/volume] in Blood 12.0-16.0 [facility] Laboratory - Chemistry and C hemistry - challengeon 01-27-2025 Potassium [Moles/Vol] 3.8 mmol/L 3.5-5.1 [facility] Albumin [Mass/Vol] 2.1 g/dL Low 3.4-5.0 [facility] ALP [Catalytic activity/Vol] 79 U/L 46-116 [facility] ALT [Catalytic activity/Vol] 8 U/L Low 14-59 [facility] AST [Catalytic activity/Vol] 17 U/L 15-37 [facility] Bilirubin [Mass/Vol] 0.4 mg/dL 0.2-1.0 [facility] Calcium [Mass/Vol] 8.3 mg/dL Low 8.5-10.1 [facility] Chloride [Moles/Vol] 105 mmol/L 98-107 [facility] CO2 [Moles/Vol] 36.4 mmol/L High 21.0-32.0 [facility] Creatinine [Mass/Vol] 1.52 mg/dL High 0.55-1.02 [facility] GFR/1.73 sq M.predicted MDRD (S/P/Bld) [Vol rate/Area] 40 mL/min/{1.73_m2} Low >=60 mL/min/1.73 m 2 [facility] Glucose [Mass/Vol] 113 mg/dL High 74-106 [facility] Magnesium [Mass/Vol] 1.3 mg/dL Low 1.8-2.4 [facility] Protein [Mass/Vol] 6.1 g/dL Low 6.4-8.2 [facility] Sodium [Moles/Vol] 144 mmol/L 136-145 [facility] Urea nitrogen [Mass/Vol] 22.0 mg/dL High 7.0-18.0 [facility] Urea nitrogen/Creatinine [Mass ratio] 14.5 mg/mg [facility] Laboratory - Hematology and Cell countson 01-27-2025 Immature granulocytes/100 WBC (Bld) 0.2 % 0.0-0.5 [facility] Leukocytes [#/volume] correc gali for nucleated erythrocytes in Blood by Automated counon 01-27-2025 WBC corrected for nucl RBC Auto (Bld) [#/Vol] Leukocytes [#/volume] corrected for nucleated erythrocytes in Blood by Automated coun 4.0-11.0 [facility] Lymphocytes Auto (Bld) [#/Vo l]on 01-27-2025 Lymphocytes (Bld) [#/Vol] Lymphocytes [#/volume] in Blood by Automated count 1.2-3.8 [facility] Lymphocytes/100 WBC Auto (Bl d)on 01-27-2025 Lymphocytes/100 WBC (Bld) Lymphocytes/100 leukocytes in Blood by Automated count 20.5-60.0 [facility] MCH Auto (RBC) [Entitic mass ]on 01-27-2025 MCH (RBC) [Entitic mass] MCH [Entitic mass] by Automated count 26.7-34.0 [facility] MCHC Auto (RBC) [Mass/Vol]on 01-27-2025 MCHC (RBC) [Mass/Vol] MCHC [Mass/volume] by Automated count 29.9-35.2 [facility] MCV Auto (RBC) [Entitic vol] on 01-27-2025 MCV (RBC) [Entitic vol] MCV [Entitic volume] by Automated count 81.0-99.0 [facility] Monocytes Auto (Bld) [#/Vol] on 01-27-2025 Monocytes (Bld) [#/Vol] Automated blood monocyte count High 0.3-0.8 [facility] Monocytes/100 WBC Auto (Bld) on 01-27-2025 Monocytes/100 WBC (Bld) Automated monocyte % 1.7-12.0 [facility] Neutrophils Auto (Bld) [#/Vo l]on 01-27-2025 Neutrophils (Bld) [#/Vol] Neutrophils [#/volume] in Blood by Automated count 1.4-6.5 [facility] Neutrophils/100 WBC Auto (Bl d)on 01-27-2025 Neutrophils/100 WBC (Bld) Automated neutrophil % 43.0-75.0 [facility] No Panel Informationon 01-27 3.8 mmol/L 3.5-5.1 [facility] Eosinophils # (Auto) 0.2 10 3/uL 0.0-0.7 [facility] Immature Granulocyte # (Auto) 0.02 10 3/uL 0.00-0.03 [facility] 1.3 mg/dL Low 1.8-2.4 [facility] 0.2 10 3/uL 0.0-0.7 [facility] 2.1 g/dL Low 3.4-5.0 [facility] 79 U/L 46-116 [facility] 8 U/L Low 14-59 [facility] 17 U/L 15-37 [facility] 0.02 10 3/uL 0.00-0.03 [facility] 14.5 [facility] 0.2 % 0.0-0.5 [facility] 22.0 mg/dL High 7.0-18.0 [facility] 8.3 mg/dL Low 8.5-10.1 [facility] 105 mmol/L 98-107 [facility] 36.4 mmol/L High 21.0-32.0 [facility] 1.52 mg/dL High 0.55-1.02 [facility] 40 Low >=60 mL/min/1.73 m 2 [facility] 113 mg/dL High 74-106 [facility] 144 mmol/L 136-145 [facility] 0.4 mg/dL 0.2-1.0 [facility] 6.1 g/dL Low 6.4-8.2 [facility] Platelet mean volume Auto (B ld) [Entitic vol]on 01-27-2025 Platelet mean volume (Bld) [Entitic vol] Platelet mean volume [Entitic volume] in Blood by Automated count 9.5-13.5 [facility] Platelets Auto (Bld) [#/Vol] on 01-27-2025 Platelets (Bld) [#/Vol] Platelets [#/volume] in Blood by Automated count 150-450 [facility] RBC Auto (Bld) [#/Vol]on RBC (Bld) [#/Vol] Erythrocytes [#/volu me] in Blood by Automated count 4.20-5.40 [facility] Serum or plasma albumin/glob ulin mass ratioon 01-27-2025 Albumin/Globulin [Mass ratio] Serum or plasma albumin/globulin mass ratio [facility] Serum or plasma anion gap de terminationon 01-27-2025 Anion gap [Moles/Vol] Serum or plasma an ion gap determination [facility] Basophils Auto (Bld) [#/Vol] on 01-26-2025 Basophils (Bld) [#/Vol] Automated basophil count 0.0-0.1 [facility] Basophils/100 WBC Auto (Bld) on 01-26-2025 Basophils/100 WBC (Bld) Automated basophil % 0.2-2.0 [facility] Eosinophils/100 WBC Auto (Bl d)on 01-26-2025 Eosinophils/100 WBC (Bld) Automated eosinophil % 0.9-7.0 [facility] Erythrocyte distribution wid th Auto (RBC) [Ratio]on 01-26-2025 Erythrocyte distribution width (RBC) [Ratio] Erythrocyte distribution width [Ratio] by Automated count 11.0-15.0 [facility] Estimated glomerular filtrat ion rate (GFR) non- Americanon 01-26-2025 GFR/1.73 sq M.predicted among non-blacks MDRD (S/P/Bld) [Vol rate/Area] Estimated glomerular filtration rate (GFR) non- Low >=60 mL/min/1.73 m 2 [facility] Globulin Calc (S) [Mass/Vol] on 01-26-2025 Globulin (S) [Mass/Vol] Serum globulin measurement by calculation (mass/volume) [facility] Hematocrit Auto (Bld) [Volum e fraction]on 01-26-2025 Hematocrit (Bld) [Volume fraction] Hematocrit [Volume Fraction] of Blood by Automated count 36.0-48.0 [facility] Hemoglobin [Mass/volume] in Bloodon 01-26-2025 Hemoglobin (Bld) [Mass/Vol] Hemoglobin [Mass/volume] in Blood 12.0-16.0 [facility] Laboratory - Chemistry and C hemistry - challengeon 01-26-2025 Albumin [Mass/Vol] 1.9 g/dL Low 3.4-5.0 [facility] ALP [Catalytic activity/Vol] 77 U/L 46-116 [facility] ALT [Catalytic activity/Vol] 11 U/L Low 14-59 [facility] AST [Catalytic activity/Vol] 19 U/L 15-37 [facility] Bilirubin [Mass/Vol] 0.4 mg/dL 0.2-1.0 [facility] Calcium [Mass/Vol] 8.0 mg/dL Low 8.5-10.1 [facility] Chloride [Moles/Vol] 105 mmol/L 98-107 [facility] CO2 [Moles/Vol] 35.1 mmol/L High 21.0-32.0 [facility] Creatinine [Mass/Vol] 1.36 mg/dL High 0.55-1.02 [facility] GFR/1.73 sq M.predicted MDRD (S/P/Bld) [Vol rate/Area] 46 mL/min/{1.73_m2} Low >=60 mL/min/1.73 m 2 [facility] Glucose [Mass/Vol] 133 mg/dL High 74-106 [facility] Magnesium [Mass/Vol] 1.3 mg/dL Low 1.8-2.4 [facility] Potassium [Moles/Vol] 2.9 mmol/L Critically low 3.5-5.1 [facility] Comment on above: RESULTS CALLED TO JOSE MARTIN DODGE RN @BY Alla Venegas at 0635 Protein [Mass/Vol] 5.8 g/dL Low 6.4-8.2 [facility] Sodium [Moles/Vol] 145 mmol/L 136-145 [facility] Urea nitrogen [Mass/Vol] 21.0 mg/dL High 7.0-18.0 [facility] Urea nitrogen/Creatinine [Mass ratio] 15.4 mg/mg [facility] Laboratory - Hematology and Cell countson 01-26-2025 Immature granulocytes/100 WBC (Bld) 0.1 % 0.0-0.5 [facility] Leukocytes [#/volume] correc gali for nucleated erythrocytes in Blood by Automated counon 01-26-2025 WBC corrected for nucl RBC Auto (Bld) [#/Vol] Leukocytes [#/volume] corrected for nucleated erythrocytes in Blood by Automated coun 4.0-11.0 [facility] Lymphocytes Auto (Bld) [#/Vo l]on 01-26-2025 Lymphocytes (Bld) [#/Vol] Lymphocytes [#/volume] in Blood by Automated count 1.2-3.8 [facility] Lymphocytes/100 WBC Auto (Bl d)on 01-26-2025 Lymphocytes/100 WBC (Bld) Lymphocytes/100 leukocytes in Blood by Automated count Low 20.5-60.0 [facility] MCH Auto (RBC) [Entitic mass ]on 01-26-2025 MCH (RBC) [Entitic mass] MCH [Entitic mass] by Automated count 26.7-34.0 [facility] MCHC Auto (RBC) [Mass/Vol]on 01-26-2025 MCHC (RBC) [Mass/Vol] MCHC [Mass/volume] by Automated count 29.9-35.2 [facility] MCV Auto (RBC) [Entitic vol] on 01-26-2025 MCV (RBC) [Entitic vol] MCV [Entitic volume] by Automated count 81.0-99.0 [facility] Monocytes Auto (Bld) [#/Vol] on 01-26-2025 Monocytes (Bld) [#/Vol] Automated blood monocyte count 0.3-0.8 [facility] Monocytes/100 WBC Auto (Bld) on 01-26-2025 Monocytes/100 WBC (Bld) Automated monocyte % 1.7-12.0 [facility] Neutrophils Auto (Bld) [#/Vo l]on 01-26-2025 Neutrophils (Bld) [#/Vol] Neutrophils [#/volume] in Blood by Automated count 1.4-6.5 [facility] Neutrophils/100 WBC Auto (Bl d)on 01-26-2025 Neutrophils/100 WBC (Bld) Automated neutrophil % 43.0-75.0 [facility] No Panel Informationon 01-26 Eosinophils # (Auto) 0.1 10 3/uL 0.0-0.7 [facility] Immature Granulocyte # (Auto) 0.01 10 3/uL 0.00-0.03 [facility] Troponin I High Sensitivity 30.9 pg/mL 4.0-51.3 [facility] Comment on above: CUT-OFF POINTS [...] CLINICAL INFORMATION. 1.3 mg/dL Low 1.8-2.4 [facility] 30.9 pg/mL 4.0-51.3 [facility] 0.1 10 3/uL 0.0-0.7 [facility] 1.9 g/dL Low 3.4-5.0 [facility] 77 U/L 46-116 [facility] 11 U/L Low 14-59 [facility] 19 U/L 15-37 [facility] 0.01 10 3/uL 0.00-0.03 [facility] 15.4 [facility] 0.1 % 0.0-0.5 [facility] 21.0 mg/dL High 7.0-18.0 [facility] 8.0 mg/dL Low 8.5-10.1 [facility] 105 mmol/L 98-107 [facility] 35.1 mmol/L High 21.0-32.0 [facility] 1.36 mg/dL High 0.55-1.02 [facility] 46 Low >=60 mL/min/1.73 m 2 [facility] 133 mg/dL High 74-106 [facility] 2.9 mmol/L Critically low 3.5-5.1 [facility] 145 mmol/L 136-145 [facility] 0.4 mg/dL 0.2-1.0 [facility] 5.8 g/dL Low 6.4-8.2 [facility] Platelet mean volume Auto (B ld) [Entitic vol]on 01-26-2025 Platelet mean volume (Bld) [Entitic vol] Platelet mean volume [Entitic volume] in Blood by Automated count 9.5-13.5 [facility] Platelets Auto (Bld) [#/Vol] on 01-26-2025 Platelets (Bld) [#/Vol] Platelets [#/volume] in Blood by Automated count 150-450 [facility] RBC Auto (Bld) [#/Vol]on RBC (Bld) [#/Vol] Erythrocytes [#/volu me] in Blood by Automated count Low 4.20-5.40 [facility] Serum or plasma albumin/glob ulin mass ratioon 01-26-2025 Albumin/Globulin [Mass ratio] Serum or plasma albumin/globulin mass ratio [facility] Serum or plasma anion gap de terminationon 01-26-2025 Anion gap [Moles/Vol] Serum or plasma an ion gap determination [facility] Basophils Auto (Bld) [#/Vol] on 01-25-2025 Basophils (Bld) [#/Vol] Automated basophil count 0.0-0.1 [facility] Basophils/100 WBC Auto (Bld) on 01-25-2025 Basophils/100 WBC (Bld) Automated basophil % 0.2-2.0 [facility] Eosinophils/100 WBC Auto (Bl d)on 01-25-2025 Eosinophils/100 WBC (Bld) Automated eosinophil % 0.9-7.0 [facility] Erythrocyte distribution wid th Auto (RBC) [Ratio]on 01-25-2025 Erythrocyte distribution width (RBC) [Ratio] Erythrocyte distribution width [Ratio] by Automated count 11.0-15.0 [facility] Estimated glomerular filtrat ion rate (GFR) non- Americanon 01-25-2025 GFR/1.73 sq M.predicted among non-blacks MDRD (S/P/Bld) [Vol rate/Area] Estimated glomerular filtration rate (GFR) non- Low >=60 mL/min/1.73 m 2 [facility] Hematocrit Auto (Bld) [Volum e fraction]on 01-25-2025 Hematocrit (Bld) [Volume fraction] Hematocrit [Volume Fraction] of Blood by Automated count 36.0-48.0 [facility] Hemoglobin [Mass/volume] in Bloodon 01-25-2025 Hemoglobin (Bld) [Mass/Vol] Hemoglobin [Mass/volume] in Blood 12.0-16.0 [facility] Laboratory - Chemistry and C hemistry - challengeon 01-25-2025 Potassium [Moles/Vol] 3.1 mmol/L Low 3.5-5.1 [facility] Free T4 [Mass/Vol] 1.65 ng/dL High 0.76-1.46 [facility] Magnesium [Mass/Vol] 1.2 mg/dL Low 1.8-2.4 [facility] TSH Qn 6.107 m[IU]/L High 0.358-3.740 [facility] Calcium [Mass/Vol] 8.1 mg/dL Low 8.5-10.1 [facility] Chloride [Moles/Vol] 104 mmol/L 98-107 [facility] CO2 [Moles/Vol] 34.6 mmol/L High 21.0-32.0 [facility] Creatinine [Mass/Vol] 1.49 mg/dL High 0.55-1.02 [facility] GFR/1.73 sq M.predicted MDRD (S/P/Bld) [Vol rate/Area] 41 mL/min/{1.73_m2} Low >=60 mL/min/1.73 m 2 [facility] Glucose [Mass/Vol] 121 mg/dL High 74-106 [facility] Natriuretic peptide B (Bld) [Mass/Vol] 7089.0 pg/mL Critically high <=1800.0 [facility] Comment on above: RESULTS CALLED TO RENETTA Hogan RN @BY Andrea Long [place] at 0458 Sodium [Moles/Vol] 144 mmol/L 136-145 [facility] Urea nitrogen [Mass/Vol] 22.0 mg/dL High 7.0-18.0 [facility] Urea nitrogen/Creatinine [Mass ratio] 14.8 mg/mg [facility] Laboratory - Hematology and Cell countson 01-25-2025 Immature granulocytes/100 WBC (Bld) 0.4 % 0.0-0.5 [facility] Leukocytes [#/volume] correc gali for nucleated erythrocytes in Blood by Automated counon 01-25-2025 WBC corrected for nucl RBC Auto (Bld) [#/Vol] Leukocytes [#/volume] corrected for nucleated erythrocytes in Blood by Automated coun 4.0-11.0 [facility] Lymphocytes Auto (Bld) [#/Vo l]on 01-25-2025 Lymphocytes (Bld) [#/Vol] Lymphocytes [#/volume] in Blood by Automated count 1.2-3.8 [facility] Lymphocytes/100 WBC Auto (Bl d)on 01-25-2025 Lymphocytes/100 WBC (Bld) Lymphocytes/100 leukocytes in Blood by Automated count Low 20.5-60.0 [facility] MCH Auto (RBC) [Entitic mass ]on 01-25-2025 MCH (RBC) [Entitic mass] MCH [Entitic mass] by Automated count 26.7-34.0 [facility] MCHC Auto (RBC) [Mass/Vol]on 01-25-2025 MCHC (RBC) [Mass/Vol] MCHC [Mass/volume] by Automated count 29.9-35.2 [facility] MCV Auto (RBC) [Entitic vol] on 01-25-2025 MCV (RBC) [Entitic vol] MCV [Entitic volume] by Automated count 81.0-99.0 [facility] Monocytes Auto (Bld) [#/Vol] on 01-25-2025 Monocytes (Bld) [#/Vol] Automated blood monocyte count 0.3-0.8 [facility] Monocytes/100 WBC Auto (Bld) on 01-25-2025 Monocytes/100 WBC (Bld) Automated monocyte % 1.7-12.0 [facility] Neutrophils Auto (Bld) [#/Vo l]on 01-25-2025 Neutrophils (Bld) [#/Vol] Neutrophils [#/volume] in Blood by Automated count 1.4-6.5 [facility] Neutrophils/100 WBC Auto (Bl d)on 01-25-2025 Neutrophils/100 WBC (Bld) Automated neutrophil % 43.0-75.0 [facility] No Panel Informationon 01-25 3.1 mmol/L Low 3.5-5.1 [facility] Clostridium difficile (PCR)(LAB) Negative [facility] Negative [facility] Troponin I High Sensitivity 28.4 pg/mL 4.0-51.3 [facility] Comment on above: CUT-OFF POINTS [...] CLINICAL INFORMATION. 1.65 ng/dL High 0.76-1.46 [facility] 6.107 u[iU]/mL High 0.358-3.740 [facility] 28.4 pg/mL 4.0-51.3 [facility] 1.2 mg/dL Low 1.8-2.4 [facility] Eosinophils # (Auto) 0.1 10 3/uL 0.0-0.7 [facility] Immature Granulocyte # (Auto) 0.03 10 3/uL 0.00-0.03 [facility] 7089.0 pg/mL Critically high <=1800.0 [facility] 14.8 [facility] 22.0 mg/dL High 7.0-18.0 [facility] 0.1 10 3/uL 0.0-0.7 [facility] 8.1 mg/dL Low 8.5-10.1 [facility] 104 mmol/L 98-107 [facility] 34.6 mmol/L High 21.0-32.0 [facility] 1.49 mg/dL High 0.55-1.02 [facility] 0.03 10 3/uL 0.00-0.03 [facility] 41 Low >=60 mL/min/1.73 m 2 [facility] 0.4 % 0.0-0.5 [facility] 121 mg/dL High 74-106 [facility] 144 mmol/L 136-145 [facility] Platelet mean volume Auto (B ld) [Entitic vol]on 01-25-2025 Platelet mean volume (Bld) [Entitic vol] Platelet mean volume [Entitic volume] in Blood by Automated count 9.5-13.5 [facility] Platelets Auto (Bld) [#/Vol] on 01-25-2025 Platelets (Bld) [#/Vol] Platelets [#/volume] in Blood by Automated count 150-450 [facility] RBC Auto (Bld) [#/Vol]on RBC (Bld) [#/Vol] Erythrocytes [#/volu me] in Blood by Automated count Low 4.20-5.40 [facility] Serum or plasma anion gap de terminationon 01-25-2025 Anion gap [Moles/Vol] Serum or plasma an ion gap determination [facility] Laboratory - Chemistry and C hemistry - challengeon 01-21-2025 Bilirubin Ql (U) ++ [facility] Glucose (U) [Mass/Vol] [facility] Ketones Ql (U) Negative [facility] pH (U) 6.0 [pH] [facility] Specific gravity (U) [Rel density] 1.010 [facility] Urobilinogen (U) [Mass/Vol] 0.2 mg/dL [facility] Laboratory - Specimen inform ationon 01-21-2025 Appearance (U) cloudy [facility] Color (U) darkyellow [facility] Laboratory - Urinalysison Leukocyte esterase Test strip Ql (U) Negative [facility] Nitrite Ql (U) Negative [facility] Protein Ql (U) ++++ [facility] No Panel Informationon 01-21 Urine Occult Blood 5-10 [facility] darkyellow [facility] cloudy [facility] 1.010 [facility] 6.0 [facility] Negative [facility] ++++ [facility] + [facility] 0.2 [facility] ++ [facility] 5-10 [facility] Basophils Auto (Bld) [#/Vol] on 12-04-2024 Basophils (Bld) [#/Vol] Automated basophil count 0.0-0.1 [facility] Basophils/100 WBC Auto (Bld) on 12-04-2024 Basophils/100 WBC (Bld) Automated basophil % 0.2-2.0 [facility] Eosinophils/100 WBC Auto (Bl d)on 12-04-2024 Eosinophils/100 WBC (Bld) Automated eosinophil % 0.9-7.0 [facility] Erythrocyte distribution wid th Auto (RBC) [Ratio]on 12-04-2024 Erythrocyte distribution width (RBC) [Ratio] Erythrocyte distribution width [Ratio] by Automated count 11.0-15.0 [facility] Estimated glomerular filtrat ion rate (GFR) non- Americanon 12-04-2024 GFR/1.73 sq M.predicted among non-blacks MDRD (S/P/Bld) [Vol rate/Area] Estimated glomerular filtration rate (GFR) non- Low >=60 mL/min/1.73 m 2 [facility] Globulin Calc (S) [Mass/Vol] on 12-04-2024 Globulin (S) [Mass/Vol] Serum globulin measurement by calculation (mass/volume) [facility] Hematocrit Auto (Bld) [Volum e fraction]on 12-04-2024 Hematocrit (Bld) [Volume fraction] Hematocrit [Volume Fraction] of Blood by Automated count 36.0-48.0 [facility] Hemoglobin [Mass/volume] in Bloodon 12-04-2024 Hemoglobin (Bld) [Mass/Vol] Hemoglobin [Mass/volume] in Blood Low 12.0-16.0 [facility] INR in Platelet poor plasma by Coagulation assayon 12-04-2024 INR Coag (PPP) [Relative time] INR in Platelet poor plasma by Coagulation assay [facility] Comment on above: DESIRED INR:2.0-3.0 CONDITIONS NOT LISTED BELOW2.5-3.5 FOR PROSTHETIC HEART VALVE REPLACEMENT2.5-3.5 RECURRENT THROMBOSIS Laboratory - Chemistry and C hemistry - challengeon 12-04-2024 Albumin [Mass/Vol] 2.7 g/dL Low 3.4-5.0 [facility] ALP [Catalytic activity/Vol] 111 U/L 46-116 [facility] ALT [Catalytic activity/Vol] 19 U/L 14-59 [facility] AST [Catalytic activity/Vol] 16 U/L 15-37 [facility] Bilirubin [Mass/Vol] 0.6 mg/dL 0.2-1.0 [facility] Calcium [Mass/Vol] 8.7 mg/dL 8.5-10.1 [facility] Chloride [Moles/Vol] 101 mmol/L 98-107 [facility] CO2 [Moles/Vol] 29.9 mmol/L 21.0-32.0 [facility] Creatinine [Mass/Vol] 1.24 mg/dL High 0.55-1.02 [facility] GFR/1.73 sq M.predicted MDRD (S/P/Bld) [Vol rate/Area] 51 mL/min/{1.73_m2} Low >=60 mL/min/1.73 m 2 [facility] Glucose [Mass/Vol] 310 mg/dL High 74-106 [facility] Natriuretic peptide B (Bld) [Mass/Vol] 3884.0 pg/mL Critically high <=1800.0 [facility] Comment on above: RESULTS CALLED TO AMILCAR RANGEL RN Potassium [Moles/Vol] 4.3 mmol/L 3.5-5.1 [facility] Protein [Mass/Vol] 7.0 g/dL 6.4-8.2 [facility] Sodium [Moles/Vol] 138 mmol/L 136-145 [facility] Urea nitrogen [Mass/Vol] 28.0 mg/dL High 7.0-18.0 [facility] Urea nitrogen/Creatinine [Mass ratio] 22.6 mg/mg [facility] Laboratory - Hematology and Cell countson 12-04-2024 Immature granulocytes/100 WBC (Bld) 0.2 % 0.0-0.5 [facility] Leukocytes [#/volume] correc gali for nucleated erythrocytes in Blood by Automated counon 12-04-2024 WBC corrected for nucl RBC Auto (Bld) [#/Vol] Leukocytes [#/volume] corrected for nucleated erythrocytes in Blood by Automated coun 4.0-11.0 [facility] Lymphocytes Auto (Bld) [#/Vo l]on 12-04-2024 Lymphocytes (Bld) [#/Vol] Lymphocytes [#/volume] in Blood by Automated count 1.2-3.8 [facility] Lymphocytes/100 WBC Auto (Bl d)on 12-04-2024 Lymphocytes/100 WBC (Bld) Lymphocytes/100 leukocytes in Blood by Automated count Low 20.5-60.0 [facility] MCH Auto (RBC) [Entitic mass ]on 12-04-2024 MCH (RBC) [Entitic mass] MCH [Entitic mass] by Automated count 26.7-34.0 [facility] MCHC Auto (RBC) [Mass/Vol]on 12-04-2024 MCHC (RBC) [Mass/Vol] MCHC [Mass/volume] by Automated count 29.9-35.2 [facility] MCV Auto (RBC) [Entitic vol] on 12-04-2024 MCV (RBC) [Entitic vol] MCV [Entitic volume] by Automated count 81.0-99.0 [facility] Monocytes Auto (Bld) [#/Vol] on 12-04-2024 Monocytes (Bld) [#/Vol] Automated blood monocyte count 0.3-0.8 [facility] Monocytes/100 WBC Auto (Bld) on 12-04-2024 Monocytes/100 WBC (Bld) Automated monocyte % 1.7-12.0 [facility] Neutrophils Auto (Bld) [#/Vo l]on 12-04-2024 Neutrophils (Bld) [#/Vol] Neutrophils [#/volume] in Blood by Automated count 1.4-6.5 [facility] Neutrophils/100 WBC Auto (Bl d)on 12-04-2024 Neutrophils/100 WBC (Bld) Automated neutrophil % 43.0-75.0 [facility] No Panel Informationon 12-04 Eosinophils # (Auto) 0.1 10 3/uL 0.0-0.7 [facility] Immature Granulocyte # (Auto) 0.02 10 3/uL 0.00-0.03 [facility] Troponin I High Sensitivity 19.6 pg/mL 4.0-51.3 [facility] Comment on above: CUT-OFF POINTS [...] in Blood by Automated count 9.5-13.5 [facility] Platelets Auto (Bld) [#/Vol] on 12-04-2024 Platelets (Bld) [#/Vol] Platelets [#/volume] in Blood by Automated count 150-450 [facility] Prothrombin time (PT)on 11-13 PT Coag (PPP) [Time] Prothrombin time (PT) High 9.0- 11.6 [facility] RBC Auto (Bld) [#/Vol]on RBC (Bld) [#/Vol] Erythrocytes [#/volu me] in Blood by Automated count Low 4.20-5.40 [facility] Serum or plasma albumin/glob ulin mass ratioon 12-04-2024 Albumin/Globulin [Mass ratio] Serum or plasma albumin/globulin mass ratio [facility] Serum or plasma anion gap de terminationon 12-04-2024 Anion gap [Moles/Vol] Serum or plasma an ion gap determination [facility] Office Visiton 12-02-2024 Follow-up visit [id number] Jeo Call 1945 F Date Provider Department Center 12/02/2024 [id number] LUNA LOVE [place] Family History Problem Relation Age of Onset Coronary artery disease Other Diabetes Other Polycystic kidney disease Other Family Status - Relation Status Age at Other Level of Service:05940 [place] OFFICE/OUTPATIENT ESTABLISHED MOD MDM 30 MIN Reason for Visit and Comments: Atrial Fibrillation [80] Congestive Heart Failure [127] - Had BMP 3 weeks ago. Taking lasix PRN. Hypertension [195578] Bradycardia [285202] Normal [facility] 36on 11-18-2024 36 Regarding lab result s from 11/03/2024: MD Brooke Sawyer MA Creatinine appears to be better. Patient's made aware. Normal [facility] Ambulatory Visit Summaryon 0 11-13-2024 Ambulatory Visit Summary Ambulatory Visit Summary JOE CALL :1945 Visit Date:11/13/2024 Ambulatory Visit Instructions Your Diagnosis Urine retention Your Care Team Attending Physician - STU PA-FRANCHESCA Del Real Primary Care Physician - SHANTEL STEVEN MD [...] FRANCHESCA PERAZA PA-C Where: [facility] [address] [address] 2024 11:20 AM EST With: FRANCHESCA PERAZA PA-C Where: [facility] [address] [address]- Medications What How Much When Why Instructions [...] for choosing us for your care. Normal [facility] Estimated glomerular filtrat ion rate (GFR) non- Americanon 11-10-2024 GFR/1.73 sq M.predicted among non-blacks MDRD (S/P/Bld) [Vol rate/Area] Estimated glomerular filtration rate (GFR) non- Low >=60 mL/min/1.73 m 2 [facility] Laboratory - Chemistry and C hemistry - challengeon 11-10-2024 Albumin [Mass/Vol] 3.0 g/dL Low 3.4-5.0 [facility] Calcium [Mass/Vol] 8.5 mg/dL 8.5-10.1 [facility] Chloride [Moles/Vol] 99 mmol/L 98-107 [facility] CO2 [Moles/Vol] 26.2 mmol/L 21.0-32.0 [facility] Creatinine [Mass/Vol] 2.00 mg/dL High 0.55-1.02 [facility] GFR/1.73 sq M.predicted MDRD (S/P/Bld) [Vol rate/Area] 29 mL/min/{1.73_m2} Low >=60 mL/min/1.73 m 2 [facility] Glucose [Mass/Vol] 424 mg/dL High 74-106 [facility] Potassium [Moles/Vol] 4.5 mmol/L 3.5-5.1 [facility] Sodium [Moles/Vol] 136 mmol/L 136-145 [facility] Urea nitrogen [Mass/Vol] 58.0 mg/dL High 7.0-18.0 [facility] Urea nitrogen/Creatinine [Mass ratio] 29.0 mg/mg [facility] No Panel Informationon 11-10 Phosphorus Level 3.6 mg/dL 2.6-4.7 [facility] Serum or plasma anion gap de terminationon 11-10-2024 Anion gap [Moles/Vol] Serum or plasma an ion gap determination [facility] Urology Office/Clinic Noteon 11-04-2024 Urology Office/Clinic Note Urology Office/Clinic Note Chief Complaint Hospital follow up HPI Staff Pt. did see Dr. Gallardo about 20 years ago Admitted [facility] 10/16 after going to ER [...] note of the bladder scan anywhere on [facility] system or output volume once [...] it well. Follows w nephrology for CKD. [employer] 10/25/24 1.31 compared to 3.06 on [...] E&M of New Patient High 60-74 Min [id number] 2. CKD (chronic kidney disease) (N18.9: Chronic kidney disease, unspecified) Follows w Dr Rapp [employer] 1.31 on day of dc (10/25/24) Most recent labs 11/03/24 - BUN 34 [employer] [employer] 1.86 GFR 26 Pretty variable all year. (Results scanned into documents) Will repeat in 1 week after peacock removal. Sees Dr Rapp either 11/10 or 11/11. Ordered: E&M of New Patient High 60-74 Min 99858 Renal Function Panel 3. Stress incontinence (N39.3: Stress incontinence (female) (male)) At baseline. Typically when stands from seated position or coughing. 2-4 pads per day. Reassess baseline sx at f/u in 4-6 wks. Ordered: E&M of New Patient High 60-74 Min 38839 Total time spent reviewing previous notes/results/external documents, preparing the chart, conducting the encounter with the patient and family, ordering tests/medications, and documenting the encounter was 60 minutes. Follow-up With When Contact Information SYDNIE HASSAN Within 6 weeks [id number] [place] [address] Business (1) Additional Instructions: Patient [...] acetaminophen-oxycodone 3 (more content not included)... Normal [facility] Comment on above: Result Comment: Elec tronically Signed By: STU GARAY, FRANCHESCA Alvarado\.valorie\Date and Time Signed: 11/04/24 11:13 EST Estimated glomerular filtrat ion rate (GFR) non- Americanon 11-03-2024 GFR/1.73 sq M.predicted among non-blacks MDRD (S/P/Bld) [Vol rate/Area] Estimated glomerular filtration rate (GFR) non- Low >=60 mL/min/1.73 m 2 [facility] Laboratory - Chemistry and C hemistry - challengeon 11-03-2024 Calcium [Mass/Vol] 8.8 mg/dL 8.5-10.1 [facility] Chloride [Moles/Vol] 99 mmol/L 98-107 [facility] CO2 [Moles/Vol] 23.1 mmol/L 21.0-32.0 [facility] Creatinine [Mass/Vol] 1.86 mg/dL High 0.55-1.02 [facility] GFR/1.73 sq M.predicted MDRD (S/P/Bld) [Vol rate/Area] 32 mL/min/{1.73_m2} Low >=60 mL/min/1.73 m 2 [facility] Glucose [Mass/Vol] 367 mg/dL High 74-106 [facility] Potassium [Moles/Vol] 4.7 mmol/L 3.5-5.1 [facility] Sodium [Moles/Vol] 134 mmol/L Low 136-145 [facility] Urea nitrogen [Mass/Vol] 34.0 mg/dL High 7.0-18.0 [facility] Urea nitrogen/Creatinine [Mass ratio] 18.3 mg/mg [facility] Serum or plasma anion gap de terminationon 11-03-2024 Anion gap [Moles/Vol] Serum or plasma an ion gap determination [facility] Office Visiton 10-31-2024 Follow-up visit [id number] Joe Call 1945 F Date Provider Department Center 10/31/2024 [id number]-PJXXLASABRINA TIRADO [facility] Family History Problem Relation Age of Onset Coronary artery disease Other Diabetes Other Polycystic kidney disease Other Family Status - Relation Status Age at Other Level of Service:[address] [place] OFFICE/OUTPATIENT ESTABLISHED MOD MDM 30 MIN Normal [facility] B-Type Natriuretic Peptideon 10-25-2024 Natriuretic peptide B (Bld) [Mass/Vol] 455.0 pg/mL High 5-100 [facility] Comment on above: Result Comment: PERF ORMED BY: [place] [address] PATHOLOGIST CONFIGURATION MANAGEMENT ANALYST MAY HYDE M.D. Performed By: #### G MICK #### Point of Care testing , Basic Metabolic Panelon 10-12 Anion gap [Moles/Vol] 13.0 mmol/L Normal 6.0-15.0 [facility] Comment on above: Performed By: #### B MAINTENANCE TEAM MEMBER, HS TROP, PT, CBC, BMP #### [facility] [address] [place] [address] [place] Calcium [Mass/Vol] 8.6 mg/dL Normal 8.6-10.3 [facility] Comment on above: Performed By: #### B MAINTENANCE TEAM MEMBER, HS TROP, PT, CBC, BMP #### [facility] [address] [place] [address] [place] Chloride [Moles/Vol] 101 mmol/L Normal 98-107 [facility] Comment on above: Performed By: #### B MAINTENANCE TEAM MEMBER, HS TROP, PT, CBC, BMP #### [facility] [address] [place] [address] [place] CO2 [Moles/Vol] 23.8 mmol/L Normal 21.0-31.0 [facility] Comment on above: Performed By: #### B MAINTENANCE TEAM MEMBER, HS TROP, PT, CBC, BMP #### [facility] [address] [place] [address] [place] Creatinine [Mass/Vol] 1.31 mg/dL High 0.60-1.20 [facility] Comment on above: Performed By: #### B MAINTENANCE TEAM MEMBER, HS TROP, PT, CBC, BMP #### [address] Creatinine Clr Calc Pharmacy 46.58 Normal [facility] Comment on above: Result Comment: PERF ORMED BY: [place] [address] PATHOLOGIST CONFIGURATION MANAGEMENT ANALYST MAY HYDE M.D. Performed By: #### B MAINTENANCE TEAM MEMBER, HS TROP, PT, CBC, BMP #### [address] Estimated GFR 41.704 mL/Min Normal [facility] Comment on above: Performed By: #### B MAINTENANCE TEAM MEMBER, HS TROP, PT, CBC, BMP #### [address] Glucose [Mass/Vol] 232 mg/dL High 70-100 [facility] Comment on above: Result Comment: [place] Glucose Reference Range is dependent on time and content of last meal. Glucose of more than 200 mg/dL in a nonstressed, ambulatory subject supports the diagnosis of Diabetes Mellitus. ADA recommended reference range Performed By: #### B MAINTENANCE TEAM MEMBER, HS TROP, PT, CBC, BMP #### [address] Potassium [Moles/Vol] 4.8 mmol/L Normal 3.5-5.1 [facility] Comment on above: Performed By: #### B MAINTENANCE TEAM MEMBER, HS TROP, PT, CBC, BMP #### [address] Sodium [Moles/Vol] 133 mmol/L Low 136-145 [facility] Comment on above: Performed By: #### B MAINTENANCE TEAM MEMBER, HS TROP, PT, CBC, BMP #### [address] Urea nitrogen [Mass/Vol] 39 mg/dL High 7-25 [facility] Comment on above: Performed By: #### B MAINTENANCE TEAM MEMBER, HS TROP, PT, CBC, BMP #### [address] Basophils Auto (Bld) [#/Vol] Ordered By: Daniele Vani on 10-25-2024 Basophils (Bld) [#/Vol] Automated basophil count 0.0-0.2 [facility] Basophils/100 WBC Auto (Bld) Ordered By: Daniele Whitearthy on 10-25-2024 Basophils/100 WBC (Bld) Automated basophil % . [facility] COVID CepheidOrdered By: Trino barrettpeter Vani on 10-25-2024 SARS-CoV-2 (COVID-19) Ab [place] Ql COVID Cepheid Abnormal Negative [facility] Comment on above: This is a [...] or Cepheid Disclaimer revoked sooner. PERFORMED BY: [place] [address] PATHOLOGIST CONFIGURATION MANAGEMENT ANALYST MAY HYDE M.D. Normal [facility] Comment on above: Performed By: #### B MAINTENANCE TEAM MEMBER, HS TROP, PT, CBC, BMP #### [place] [id number] [facility] Calcium [Mass/volume] in Ser um or PlasmaOrdered By: Daniele Jane on 10-25-2024 Calcium [Mass/Vol] Calcium [Mass/volume ] in Serum or Plasma 8.6-10.3 [facility] Carbon dioxide, total [Moles /volume] in Serum or PlasmaOrdered By: Daniele Jane on 10-25-2024 CO2 [Moles/Vol] Carbon dioxide, tota l [Moles/volume] in Serum or Plasma 21.0-31.0 [facility] Cepheid COVID PCR Positiveon 10-25-2024 SARS-CoV-2 (COVID-19) RNA FERN+probe Ql (Unsp spec) Positive Critically abnormal Negative [facility] Comment on above: Result Comment: This is a duplicate Cepheid Xpert Xpress CoV-2/Flu/RSV Plus RNA by RT-PCR result to be used for statistical tracking purpose only. PERFORMED BY: [address] [address] PATHOLOGIST CONFIGURATION MANAGEMENT ANALYST MOHAMED M EL-FAKHARANY M.D. Performed By: #### B MAINTENANCE TEAM MEMBER, HS TROP, PT, CBC, BMP #### [address] Chloride [Moles/volume] in S oziel or PlasmaOrdered By: Daniele Jane on 10-25-2024 Chloride [Moles/Vol] Chloride [Moles/vol ume] in Serum or Plasma 98-107 [facility] Complete Blood Count Auto Di ffon 10-25-2024 Basophils (Bld) [#/Vol] 0.1 10*3/uL Normal 0.0-0.2 [facility] Comment on above: Result Comment: PERF ORMED BY: [place] [address] PATHOLOGIST CONFIGURATION MANAGEMENT ANALYST MAY HYDE M.D. Performed By: #### B MAINTENANCE TEAM MEMBER, HS TROP, PT, CBC, BMP #### [address] Basophils/100 WBC (Bld) 0.9 % Normal . [facility] Comment on above: Performed By: #### B MAINTENANCE TEAM MEMBER, HS TROP, PT, CBC, BMP #### [address] Eosinophils (Bld) [#/Vol] 0.1 10*3/uL Normal 0.0-0.45 [facility] Comment on above: Performed By: #### B MAINTENANCE TEAM MEMBER, HS TROP, PT, CBC, BMP #### [address] Eosinophils/100 WBC (Bld) 1.5 % Normal . [facility] Comment on above: Performed By: #### B MAINTENANCE TEAM MEMBER, HS TROP, PT, CBC, BMP #### [address] Erythrocyte distribution width (RBC) [Ratio] 15.3 % Normal 11.9-15.3 [facility] Comment on above: Performed By: #### B MAINTENANCE TEAM MEMBER, HS TROP, PT, CBC, BMP #### [address] Hematocrit (Bld) [Volume fraction] 36.2 % Normal 34.0-46.4 [facility] Comment on above: Performed By: #### B MAINTENANCE TEAM MEMBER, HS TROP, PT, CBC, BMP #### [address] Hemoglobin (Bld) [Mass/Vol] 12.2 g/dL Normal 11.8-15.4 [facility] Comment on above: Performed By: #### B MAINTENANCE TEAM MEMBER, HS TROP, PT, CBC, BMP #### [address] Lymphocytes (Bld) [#/Vol] 0.8 10*3/uL Low 1.00-4.8 [facility] Comment on above: Performed By: #### B MAINTENANCE TEAM MEMBER, HS TROP, PT, CBC, BMP #### [address] Lymphocytes/100 WBC (Bld) 9.8 % Normal . [facility] Comment on above: Performed By: #### B MAINTENANCE TEAM MEMBER, HS TROP, PT, CBC, BMP #### [address] MCH (RBC) [Entitic mass] 29.5 pg Normal 24.7-34.3 [facility] Comment on above: Performed By: #### B MAINTENANCE TEAM MEMBER, HS TROP, PT, CBC, BMP #### [address] MCV (RBC) [Entitic vol] 87.6 fL Normal 80-100 [facility] Comment on above: Performed By: #### B MAINTENANCE TEAM MEMBER, HS TROP, PT, CBC, BMP #### [address] Mean Corpuscular HGB Conc 33.7 g/dL Normal 32.0-35.0 [facility] Comment on above: Performed By: #### B MAINTENANCE TEAM MEMBER, HS TROP, PT, CBC, BMP #### [address] Monocytes (Bld) [#/Vol] 0.8 10*3/uL Normal 0.0-0.8 [facility] Comment on above: Performed By: #### B MAINTENANCE TEAM MEMBER, HS TROP, PT, CBC, BMP #### [place] [address] [place] Monocytes/100 WBC (Bld) 25.33 % High 0.00-20.00 [facility] Comment on above: Result Comment: For adults in ED, MDW > 20.0 may be associated with a higher risk of sepsis during the first 12 hrs of hospital admission Performed By: #### B MAINTENANCE TEAM MEMBER, HS TROP, PT, CBC, BMP #### [address] Monocytes/100 WBC (Bld) 10.7 % Normal . [facility] Comment on above: Performed By: #### B MAINTENANCE TEAM MEMBER, HS TROP, PT, CBC, BMP #### [address] Neutrophils (Bld) [#/Vol] 6.1 10*3/uL Normal 1.8-7.7 [facility] Comment on above: Performed By: #### B MAINTENANCE TEAM MEMBER, HS TROP, PT, CBC, BMP #### [place] [address] [place] Neutrophils/100 WBC (Bld) 77.1 % Normal . [facility] Comment on above: Performed By: #### B MAINTENANCE TEAM MEMBER, HS TROP, PT, CBC, BMP #### [place] [address] [place] NRBC% 0.1 /100{WBC} Normal 0-0.5 [facility] Comment on above: Performed By: #### B MAINTENANCE TEAM MEMBER, HS TROP, PT, CBC, BMP #### [place] [address] [place] Platelet mean volume (Bld) [Entitic vol] 9.0 fL Normal 6.3-10.7 [facility] Comment on above: Performed By: #### B MAINTENANCE TEAM MEMBER, HS TROP, PT, CBC, BMP #### [place] [address] [place] Platelets (Bld) [#/Vol] 142 10*3/uL Low 150-450 [facility] Comment on above: Performed By: #### B MAINTENANCE TEAM MEMBER, HS TROP, PT, CBC, BMP #### [facility] [address] RBC (Bld) [#/Vol] 4.13 10*6/uL Normal 3.60-5.00 [facility] Comment on above: Performed By: #### B MAINTENANCE TEAM MEMBER, HS TROP, PT, CBC, BMP #### [facility] [address] WBC (Bld) [#/Vol] 7.9 10*3/uL Normal 3.8-11.6 [facility] Comment on above: Performed By: #### B MAINTENANCE TEAM MEMBER, HS TROP, PT, CBC, BMP #### [facility] [address] Creatinine [Mass/volume] in Serum or PlasmaOrdered By: Daniele Jane on 10-25-2024 Creatinine [Mass/Vol] Creatinine [Mass/v olume] in Serum or Plasma High 0.60-1.20 [facility] ECG 12 lead ECGon 10-25-2024 ECG 12 lead ECG [facility] [place] [address] Electrocardiograph Report Signed Patient: Joe Call MR#: [id number] 0 : 1945 Acct:[id number] Age/Sex: 79 / F ADM Date: 10/25/24 Loc: ER Room: Type: [facility] ER Attending Dr: Ordering Provider: Daniele [...] sinus arrhythmia Confirmed by Daniele Jane DO ([id number]) on 10/25/2024 2:01:48 PM Referred By: Electronically Signed By: Daniele Jane DO Transcribed By: MUS Signed By Daniele Jane DO 1401 Normal [facility] Eosinophils Auto (Bld) [#/Vo l]Ordered By: Daniele Jane on 10-25-2024 Eosinophils (Bld) [#/Vol] Automated eosinophil count 0.0-0.45 [facility] Eosinophils/100 WBC Auto (Bl d)Ordered By: Daniele Jane on 10-25-2024 Eosinophils/100 WBC (Bld) Automated eosinophil % . [facility] Erythrocyte distribution wid th Auto (RBC) [Ratio]Ordered By: Daniele Jane on 10-25-2024 Erythrocyte distribution width (RBC) [Ratio] Erythrocyte distribution width [Ratio] by Automated count 11.9-15.3 [facility] Glucose [Mass/volume] in Ser um or PlasmaOrdered By: Daniele Jane on 10-25-2024 Glucose [Mass/Vol] Glucose [Mass/volume ] in Serum or Plasma High 70-100 [facility] Comment on above: ADA recommended refe rence rangeRandom Glucose Reference Range is dependent on time and content of last meal. Glucose of more than 200 mg/dL in a nonstressed, ambulatory subject supports the diagnosis of Diabetes Mellitus. Hematocrit Auto (Bld) [Volum e fraction]Ordered By: Daniele Jane on 10-25-2024 Hematocrit (Bld) [Volume fraction] Hematocrit [Volume Fraction] of Blood by Automated count 34.0-46.4 [facility] Hemoglobin [Mass/volume] in BloodOrdered By: Daniele Jane on 10-25-2024 Hemoglobin (Bld) [Mass/Vol] Hemoglobin [Mass/volume] in Blood 11.8-15.4 [facility] INR in Platelet poor plasma by Coagulation assayOrdered By: Daniele Jane on 10-25-2024 INR Coag (PPP) [Relative time] INR in Platelet poor plasma by Coagulation assay [facility] Comment on above: INR Therapeutic Rang [...] in Blood by Automated coun 3.8-11.6 [facility] Lymphocytes Auto (Bld) [#/Vo l]Ordered By: Daniele Jane on 10-25-2024 Lymphocytes (Bld) [#/Vol] Lymphocytes [#/volume] in Blood by Automated count Low 1.00-4.8 [facility] Lymphocytes/100 WBC Auto (Bl d)Ordered By: Daniele Jane on 10-25-2024 Lymphocytes/100 WBC (Bld) Lymphocytes/100 leukocytes in Blood by Automated count . [facility] MCH Auto (RBC) [Entitic mass ]Ordered By: Daniele Jane on 10-25-2024 MCH (RBC) [Entitic mass] MCH [Entitic mass] by Automated count 24.7-34.3 [facility] MCHC Auto (RBC) [Mass/Vol]Or dered By: Daniele Jane on 10-25-2024 MCHC (RBC) [Mass/Vol] MCHC [Mass/volume] by Automated count 32.0-35.0 [facility] MCV Auto (RBC) [Entitic vol] Ordered By: Daniele Jane on 10-25-2024 MCV (RBC) [Entitic vol] MCV [Entitic volume] by Automated count 80-100 [facility] Monocyte distribution width [Entitic volume] in Blood by AutomatedOrdered By: Daniele Jane on 10-25-2024 Monocyte distribution width Auto (Bld) [Entitic vol] Monocyte distribution width [Entitic volume] in Blood by Automated High 0.00-20.00 [facility] Comment on above: For adults in ED, MD W > 20.0 may be associated with a higher risk of sepsis during the first 12 hrs of hospital admission Monocytes Auto (Bld) [#/Vol] Ordered By: Daniele Jane on 10-25-2024 Monocytes (Bld) [#/Vol] Automated blood monocyte count 0.0-0.8 [facility] Monocytes/100 WBC Auto (Bld) Ordered By: Daniele Jane on 10-25-2024 Monocytes/100 WBC (Bld) Automated monocyte % . [facility] Natriuretic peptide B [Mass/ Vol]Ordered By: Daniele Jane on 10-25-2024 Natriuretic peptide B (Bld) [Mass/Vol] BNP ser/plas High 5-100 [facility] Neutrophils Auto (Bld) [#/Vo l]Ordered By: Daniele Jane on 10-25-2024 Neutrophils (Bld) [#/Vol] Neutrophils [#/volume] in Blood by Automated count 1.8-7.7 [facility] Neutrophils/100 WBC Auto (Bl d)Ordered By: Daniele Jane on 10-25-2024 Neutrophils/100 WBC (Bld) Automated neutrophil % . [facility] No Panel InformationOrdered By: Daniele Jane on 10-25-2024 Estimated GFR (CKD-EPI) 41.704 mL/Min [facility] Creatinine Clearance (Chem 46.58 [facility] Nucleated erythrocytes [Pres ence] in Blood by Automated countOrdered By: Daniele Jane on 10-25-2024 Nucleated RBC Auto Ql (Bld) Nucleated erythrocytes [Presence] in Blood by Automated count 0-0.5 [facility] Partial Thromboplastin Timeo n 10-25-2024 aPTT Coag (Bld) [Time] 28.6 s Normal 25.1-36.5 [facility] Comment on above: Result Comment: A he matocrit value greater than 55% may lead to inaccurate results in coagulation testing. Patients having hematocrit values >55% require a special collection tube for coagulation studies. Please contact the laboratory at [phone] for redraw instructions. PERFORMED BY: [facility] [address] [place] [address] PATHOLOGIST CONFIGURATION MANAGEMENT ANALYST MAY HYDE M.D. Performed By: #### G LULS #### Point of Care testing , Platelet mean volume Auto (B ld) [Entitic vol]Ordered By: Daniele Jane on 10-25-2024 Platelet mean volume (Bld) [Entitic vol] Platelet mean volume [Entitic volume] in Blood by Automated count 6.3-10.7 [facility] Platelets Auto (Bld) [#/Vol] Ordered By: Daniele Jane on 10-25-2024 Platelets (Bld) [#/Vol] Platelets [#/volume] in Blood by Automated count Low 150-450 [facility] Potassium [Moles/volume] in Serum or PlasmaOrdered By: Daniele Jane on 10-25-2024 Potassium [Moles/Vol] Potassium [Moles/v olume] in Serum or Plasma 3.5-5.1 [facility] Prothrombin Time INRon 10-25 INR Coag (PPP) [Relative time] 1.2 {INR} Normal [facility] Comment on [...] (PPP) [Time] 13.5 s High 9.0-12.9 [facility] Comment on above: Result Comment: A he matocrit value greater than 55% may lead to inaccurate results in coagulation testing. Patients having hematocrit values >55% require a special collection tube for coagulation studies. Please contact the laboratory at [phone] for redraw instructions. Performed By: #### G LULS #### Point of Care testing , Prothrombin time (PT)Ordered By: Daniele Jane on 10-25-2024 PT Coag (PPP) [Time] Prothrombin time (PT) High 9.0- 12.9 [facility] Comment on above: A hematocrit value g reater than 55% may lead to inaccurate results in coagulation testing. Patients having hematocrit values >55% require a special collection tube for coagulation studies. Please contact the laboratory at [phone] for redraw instructions. RBC Auto (Bld) [#/Vol]Ordere d By: Daniele Jnae on 10-25-2024 RBC (Bld) [#/Vol] Erythrocytes [#/volu me] in Blood by Automated count 3.60-5.00 [facility] Respiratory specimen influen za A virus, influenza B virus, respiratory syncytical virOrdered By: Daniele Jane on 10-25-2024 SARS-CoV-2 (COVID-19) RNA FERN+probe Ql (Unsp spec) Respiratory specimen influenza A virus, influenza B virus, respiratory syncytical vir [facility] SARS-CoV-2 (COVID-19) RNA FERN+probe Ql (Unsp spec) Respiratory specimen influenza A virus, influenza B virus, respiratory syncytical vir [facility] Serum or plasma anion gap de terminationOrdered By: Daniele Jane on 10-25-2024 Anion gap [Moles/Vol] Serum or plasma an ion gap determination 6.0-15.0 [facility] Sodium [Moles/volume] in Ser um or PlasmaOrdered By: Daniele Jane on 10-25-2024 Sodium [Moles/Vol] Sodium [Moles/volume ] in Serum or Plasma Low 136-145 [facility] Troponin I High Sensitivityo n 10-25-2024 Troponin I High Sensitivity 14.6 pg/mL Normal 0.0-15.0 [facility] Comment on above: Result Comment: PERF ORMED BY: [facility] [address] [place] [address] PATHOLOGIST CONFIGURATION MANAGEMENT ANALYST MAY HYDE M.D. Performed By: #### G LULS #### Point of Care testing , Troponin I.cardiac [Mass/vol ume] in Serum or Plasma by Detection limit <= 0.01 ng/Ordered By: Daniele Jane on 10-25-2024 Troponin I.cardiac DL <= 0.01 ng/mL [Mass/Vol] Troponin I.cardiac [Mass/volume] in Serum or Plasma by Detection limit <= 0.01 ng/ 0.0-15.0 [facility] Urea nitrogen [Mass/volume] in Serum or PlasmaOrdered By: Daniele Jane on 10-25-2024 Urea nitrogen [Mass/Vol] Urea nitrogen [Mass/volume] in Serum or Plasma High 7-25 [facility] WBC Auto (Bld) [#/Vol]Ordere d By: Daniele Jane on 10-25-2024 WBC (Bld) [#/Vol] Leukocytes [#/volume ] in Blood by Automated count 3.8-11.6 [facility] XR chest 1V portableon 10-25 XR chest 1V portable [facility] Main [place] [address] [place] [address] XRay Report Signed Patient: Joe Call MR#: [id number] 0 : 1945 Acct:[id number] Age/Sex: 79 / F ADM Date: 10/25/24 Loc: ER Room: Type: [facility] ER Attending Dr: Copies to: Daniele Jane [...] Jarred Randolph M.D.10/25/2024 7:35 AM Dictation Location: [facility] Transcribed By: [facility] 10/25/24 0735 Dictated By: Jarred Randolph DO 10/25/24 0734 Signed By: 10/25/24 0735 Normal [facility] aPTT in Platelet poor plasma by Coagulation assayOrdered By: Daniele Jane on 10-25-2024 aPTT Coag (PPP) [Time] Activated partial thromboplastin time (aPTT) in platelet poor plasma by coagulation a 25.1-36.5 [facility] Comment on above: A hematocrit value g reater than 55% may lead to inaccurate results in coagulation testing. Patients having hematocrit values >55% require a special collection tube for coagulation studies. Please contact the laboratory at [phone] for redraw instructions. Appearance of UrineOrdered B y: Zhang [place] on 10-22-2024 Appearance (U) Urine appearance Abnormal Clear [facility] Bacteria [Presence] in Urine by AutomatedOrdered By: Zhang [place] on 10-22-2024 Bacteria Auto Ql (U) Bacteria [Presence] in Urine by Automated None Seen [facility] Bilirubin Test strip Ql (U)O rdered By: Zhang [place] on 10-22-2024 Bilirubin Ql (U) Bilirubin.total [Presence] in Urine by Test strip Negative [facility] Calcium oxalate crystals [Pr esence] in Urine by Computer assisted methodOrdered By: Zhang [place] on 10-22-2024 Calcium oxalate crystals Computer assisted Ql (U) Calcium oxalate crystals [Presence] in Urine by Computer assisted method [facility] Color Auto (U)Ordered By: Renetta [place] on 10-22-2024 Color (U) Color of Urine by Auto Yellow Fi [facility] Dipstick and Microscopicon 1 12-23-2023 Appearance (U) Cloudy Critically abnormal Clear [facility] Comment on above: Order Comment: Name Collection Type:: Peacock Catheter Performed By: #### B MAINTENANCE TEAM MEMBER, HS TROP, PT, CBC, BMP #### [facility] [address] [place] [id number] [place] Bacteria,Urine None Seen Normal None Seen [facility] Comment on above: Order Comment: Name Collection Type:: Peacock Catheter Performed By: #### B MAINTENANCE TEAM MEMBER, HS TROP, PT, CBC, BMP #### [facility] [address] [place] [address] [place] Bilirubin,Urine Negative Normal Negative [facility] Comment on above: Order Comment: Name Collection Type:: Peacock Catheter Performed By: #### B MAINTENANCE TEAM MEMBER, HS TROP, PT, CBC, BMP #### [facility] [address] [place] [address] [place] Calcium Oxalate Crystals,Urine Rare Normal [facility] Comment on above: Order Comment: Name Collection Type:: Peacock Catheter Performed By: #### B MAINTENANCE TEAM MEMBER, HS TROP, PT, CBC, BMP #### [address] Color (U) Yellow Normal Yellow [facility] Comment on above: Order Comment: Name Collection Type:: Peacock Catheter Performed By: #### B MAINTENANCE TEAM MEMBER, HS TROP, PT, CBC, BMP #### [address] Glucose Ql (U) 30 mg/dL High Normal [facility] Comment on above: Order Comment: Name Collection Type:: Peacock Catheter Performed By: #### B MAINTENANCE TEAM MEMBER, HS TROP, PT, CBC, BMP #### [address] Hyaline Casts,Urine 0 [LPF] Normal 0-8 [facility] Comment on above: Order Comment: Name Collection Type:: Peacock Catheter Performed By: #### B MAINTENANCE TEAM MEMBER, HS TROP, PT, CBC, BMP #### [address] Ketones Ql (U) Negative Normal Negative [facility] Comment on above: Order Comment: Name Collection Type:: Peacock Catheter Performed By: #### B MAINTENANCE TEAM MEMBER, HS TROP, PT, CBC, BMP #### [address] Leukocyte esterase Test strip Ql (U) 1+ High Negative [facility] Comment on above: Order Comment: Name Collection Type:: Peacock Catheter Performed By: #### B MAINTENANCE TEAM MEMBER, HS TROP, PT, CBC, BMP #### [address] Mucus,Urine Rare Normal [facility] Comment on above: Order Comment: Name Collection Type:: Peacock Catheter Result Comment: PERF ORMED BY: [place] [address] PATHOLOGIST CONFIGURATION MANAGEMENT ANALYST MAY HYDE M.D. Performed By: #### B MAINTENANCE TEAM MEMBER, HS TROP, PT, CBC, BMP #### [place] [address] [place] Nitrite,Urine Negative Normal Negative [facility] Comment on above: Order Comment: Name Collection Type:: Peacock Catheter Performed By: #### B MAINTENANCE TEAM MEMBER, HS TROP, PT, CBC, BMP #### [address] Occult Blood,Urine 3+ High Negative [facility] Comment on above: Order Comment: Name Collection Type:: Peacock Catheter Result Comment: PERF ORMED BY: [place] [address] PATHOLOGIST CONFIGURATION MANAGEMENT ANALYST MAY HYDE M.D. Performed By: #### B MAINTENANCE TEAM MEMBER, HS TROP, PT, CBC, BMP #### [address] pH (U) 5.5 [pH] Normal 5.0-9.0 [facility] Comment on above: Order Comment: Name Collection Type:: Peacock Catheter Performed By: #### B MAINTENANCE TEAM MEMBER, HS TROP, PT, CBC, BMP #### [address] Protein (U) [Mass/Vol] 300 mg/dL High Negative [facility] Comment on above: Order Comment: Name Collection Type:: Peacock Catheter Performed By: #### B MAINTENANCE TEAM MEMBER, HS TROP, PT, CBC, BMP #### [address] RBC,Urine Innumerable High 0-4 [facility] Comment on above: Order Comment: Name Collection Type:: Peacock Catheter Performed By: #### B MAINTENANCE TEAM MEMBER, HS TROP, PT, CBC, BMP #### [address] Specificy Excel,Urine 1.019 Normal 1.001-1.030 [facility] Comment on above: Order Comment: Name Collection Type:: Peacock Catheter Performed By: #### B MAINTENANCE TEAM MEMBER, HS TROP, PT, CBC, BMP #### [place] [address] [place] Squamous Epithelial Cell,Urine 1 [HPF] Normal 0-2 [facility] Comment on above: Order Comment: Name Collection Type:: Peacock Catheter Performed By: #### B MAINTENANCE TEAM MEMBER, HS TROP, PT, CBC, BMP #### [facility] [address] Urobilinogen,Urine Normal Normal Normal [facility] Comment on above: Order Comment: Name Collection Type:: Peacock Catheter Performed By: #### B MAINTENANCE TEAM MEMBER, HS TROP, PT, CBC, BMP #### [facility] [address] WBC,Urine 10 [HPF] High 0-4 [facility] Comment on above: Order Comment: Name Collection Type:: Peacock Catheter Performed By: #### B MAINTENANCE TEAM MEMBER, HS TROP, PT, CBC, BMP #### [facility] [address] Epithelial cells.squamous [# /area] in Urine sediment by Automated countOrdered By: Zhang Norwood on 10-22-2024 Epithelial cells.squamous Auto (Urine sed) [#/Area] Epithelial cells.squamous [#/area] in Urine sediment by Automated count 0-2 [facility] Erythrocytes [#/area] in Uri ne sediment by Automated countOrdered By: Zhang Norwood on 10-22-2024 RBC Auto (Urine sed) [#/Area] Erythrocytes [#/area] in Urine sediment by Automated count High 0-4 [facility] Glucose [Mass/volume] in Uri ne by Test stripOrdered By: Zhang Norwood on 10-22-2024 Glucose Test strip (U) [Mass/Vol] Glucose [Mass/volume] in Urine by Test strip High Normal [facility] Hemoglobin Test strip Ql (U) Ordered By: Zhang Norwood on 10-22-2024 Hemoglobin Ql (U) Hemoglobin [Presence ] in Urine by Test strip High Negative [facility] Hyaline casts [#/area] in Ur ine sediment by Automated countOrdered By: Zhang Norwood on 10-22-2024 Hyaline casts Auto (Urine sed) [#/Area] Hyaline casts [#/area] in Urine sediment by Automated count 0-8 [facility] Ketones Test strip Ql (U)Ord ered By: Zhang Norwood on 10-22-2024 Ketones Ql (U) Ketones [Presence] i n Urine by Test strip Negative [facility] Leukocyte esterase [Presence ] in Urine by Test stripOrdered By: Zhang Norwood on 10-22-2024 Leukocyte esterase Test strip Ql (U) Leukocyte esterase [Presence] in Urine by Test strip High Negative [facility] Leukocytes [#/area] in Urine sediment by Automated countOrdered By: Zhang Norwood on 10-22-2024 WBC Auto (Urine sed) [#/Area] Leukocytes [#/area] in Urine sediment by Automated count High 0-4 [facility] Mucus [Presence] in Urine by AutomatedOrdered By: Zhang Norwood on 10-22-2024 Mucus Auto Ql (U) Mucus [Presence] in Urine by Automated [facility] Nitrite Test strip Ql (U)Ord ered By: Zhang Norwood on 10-22-2024 Nitrite Ql (U) Nitrite [Presence] i n Urine by Test strip Negative [facility] Protein Test strip (U) [Mass /Vol]Ordered By: Zhang Norwood on 10-22-2024 Protein (U) [Mass/Vol] Protein [Mass/vol ume] in Urine by Test strip High Negative [facility] Specific gravity Test strip (U) [Rel density]Ordered By: Zhang Norwood on 10-22-2024 Specific gravity (U) [Rel density] Specific gravity of Urine by Test strip 1.001-1.030 [facility] Urine Cultureon 10-22-2024 Bacteria identified Cx Nom (U) 15,000 colonies/ml mixed bacterial skin contaminants 2 Days PERFORMED BY: [facility] [address] [place] [address] PATHOLOGIST CONFIGURATION MANAGEMENT ANALYST MAY HYDE M.D. Normal [facility] Comment on above: Performed By: #### B MAINTENANCE TEAM MEMBER, HS TROP, PT, CBC, BMP #### [facility] [address] Urine cultureOrdered By: Hortensia Norwood on 10-22-2024 Bacteria identified Cx Nom (U) Urine culture [facility] Bacteria identified Cx Nom (U) Urine culture [facility] Urobilinogen Test strip (U) [Mass/Vol]Ordered By: Zhang Norwood on 10-22-2024 Urobilinogen (U) [Mass/Vol] Urobilinogen [Mass/volume] in Urine by Test strip Normal [facility] pH Test strip (U)Ordered By: Zhang Norwood on 10-22-2024 pH (U) pH of Urine by Test strip 5.0-9.0 [facility] A1C with Estimated Average Bela hansen 10-20-2024 Glucose [Mass/Vol] 292 mg/dL Normal [facility] Comment on above: Result Comment: PERF ORMED BY: [facility] [address] [place] [address] PATHOLOGIST CONFIGURATION MANAGEMENT ANALYST MAY HYDE M.D. Performed By: #### G LULS #### Point of Care testing , HbA1c (Bld) [Mass fraction] 11.8 % High 4.3-5.6 [facility] Comment on above: Result Comment: Incr eased risk for diabetes: 5.7 - 6.4 diabetes: >6.4 glycemic control for adults with diabetes: <7.0 Performed By: #### G LULS #### Point of Care testing , Basic Metabolic Panelon Anion gap [Moles/Vol] Not performed Normal 6.0-15.0 [facility] Comment on above: Performed By: #### G LULS #### Point of Care testing , Calcium [Mass/Vol] 8.7 mg/dL Normal 8.6-10.3 [facility] Comment on above: Performed By: #### G LULS #### Point of Care testing , Chloride [Moles/Vol] 97 mmol/L Low 98-107 [facility] Comment on above: Performed By: #### G LULS #### Point of Care testing , CO2 [Moles/Vol] 26.0 mmol/L Normal 21.0-31.0 [facility] Comment on above: Performed By: #### G LULS #### Point of Care testing , Creatinine [Mass/Vol] 3.06 mg/dL High 0.60-1.20 [facility] Comment on above: Performed By: #### G LULS #### Point of Care testing , Creatinine Clr Calc Pharmacy 18.79 Normal [facility] Comment on above: Performed By: #### G LULS #### Point of Care testing , Estimated GFR 15.067 mL/Min Normal [facility] Comment on above: Performed By: #### G LULS #### Point of Care testing , Glucose [Mass/Vol] 159 mg/dL Significant change up 70-100 [facility] Comment on above: Result Comment: [facility] Glucose Reference Range is dependent on time and content of last meal. Glucose of more than 200 mg/dL in a nonstressed, ambulatory subject supports the diagnosis of Diabetes Mellitus. ADA recommended reference range Performed By: #### G LULS #### Point of Care testing , Potassium Normal 3.5-5.1 [facility] Comment on above: Result Comment: Spec imen hemolyzed, redraw requested Performed By: #### G LULS #### Point of Care testing , Sodium Normal 136-145 [facility] Comment on above: Result Comment: Spec imen hemolyzed, redraw requested Performed By: #### G LULS #### Point of Care testing , Urea nitrogen [Mass/Vol] 91 mg/dL High 7-25 [facility] Comment on above: Performed By: #### G LULS #### Point of Care testing , Blood estimated average gluc ose determination by estimation from glycated hemoglobinOrdered By: Kavin Escobar on 10-20-2024 Average glucose Estimated from glycated hemoglobin (Bld) [Mass/Vol] Glucose mean value [Mass/volume] in Blood Estimated from glycated hemoglobin [facility] Calcium [Mass/volume] in Ser um or PlasmaOrdered By: Mauri Chavira on 10-20-2024 Calcium [Mass/Vol] Calcium [Mass/volume ] in Serum or Plasma 8.6-10.3 [facility] Carbon dioxide, total [Moles /volume] in Serum or PlasmaOrdered By: Mauri Chavira on 10-20-2024 CO2 [Moles/Vol] Carbon dioxide, tota l [Moles/volume] in Serum or Plasma 21.0-31.0 [facility] Chloride [Moles/volume] in S oziel or PlasmaOrdered By: Mauri Chavira on 10-20-2024 Chloride [Moles/Vol] Chloride [Moles/vol ume] in Serum or Plasma Low 98-107 [facility] Creatinine [Mass/volume] in Serum or PlasmaOrdered By: Mauri Chavira on 10-20-2024 Creatinine [Mass/Vol] Creatinine [Mass/v olume] in Serum or Plasma High 0.60-1.20 [facility] Glucose Glucometer (BldC) [M ass/Vol]Ordered By: Kavin Escobar on 10-20-2024 Glucose [Mass/Vol] Capillary blood gluc ose measurement by glucometer (mass/volume) [facility] Comment on above: Random Glucose Refer ence Range is dependent on time and content of last meal. Glucose of more than 200 mg/dL in a nonstressed, ambulatory subject supports the diagnosis of Diabetes Mellitus. Glucose Poct Glucometerson 1 12-21-2023 Glucose [Mass/Vol] 209 mg/dL Normal [facility] Comment on above: Result Comment: [place] Glucose Reference Range is dependent on time and content of last meal. Glucose of more than 200 mg/dL in a nonstressed, ambulatory subject supports the diagnosis of Diabetes Mellitus. PERFORMED BY: [place] [address] PATHOLOGIST CONFIGURATION MANAGEMENT ANALYST MAY HYDE M.D. Performed By: #### B MAINTENANCE TEAM MEMBER, HS TROP, PT, CBC, BMP #### [facility] [address] [place] [address] [place] Glucose [Mass/Vol] 164 mg/dL Normal [facility] Comment on above: Result Comment: [place] Glucose Reference Range is dependent on time and content of last meal. Glucose of more than 200 mg/dL in a nonstressed, ambulatory subject supports the diagnosis of Diabetes Mellitus. PERFORMED BY: [address] [id number] PATHOLOGIST CONFIGURATION MANAGEMENT ANALYST MAY HYDE M.D. Performed By: #### B MAINTENANCE TEAM MEMBER, HS TROP, PT, CBC, BMP #### [address] Glucose [Mass/volume] in Ser um or PlasmaOrdered By: Mauri Chavira on 10-20-2024 Glucose [Mass/Vol] Glucose [Mass/volume ] in Serum or Plasma Invalid Interpretation Code 70-100 [facility] Comment on above: [place]: 288 on 11ADA recommended reference rangeRandom Glucose Reference Range is dependent on time and content of last meal. Glucose of more than 200 mg/dL in a nonstressed, ambulatory subject supports the diagnosis of Diabetes Mellitus. Hemoglobin A1c/Hemoglobin.to vinicio in BloodOrdered By: Kavin Escobar on 10-20-2024 HbA1c (Bld) [Mass fraction] Hemoglobin A1c percentage High 4.3-5.6 [facility] Comment on above: Increased risk for d iabetes: 5.7 - 6.4diabetes: >6.4glycemic control for adults with diabetes: <7.0 Magnesiumon 10-20-2024 Magnesium Normal 1.9-2.7 [facility] Comment on above: Result Comment: Spec imen hemolyzed, redraw requested PERFORMED BY: [place] [address] PATHOLOGIST CONFIGURATION MANAGEMENT ANALYST MAY HYDE M.D. Performed By: #### G LULS #### Point of Care testing , Magnesium [Mass/volume] in S oziel or PlasmaOrdered By: Mauri Chavira on 10-20-2024 Magnesium [Mass/Vol] Magnesium [Mass/vol ume] in Serum or Plasma 1.9-2.7 [facility] No Panel InformationOrdered By: Mauri Chavira on 10-20-2024 Estimated GFR (CKD-EPI) 15.067 mL/Min [facility] Pharmacy Creatinine Clearance (Chem 18.79 [facility] Potassium [Moles/volume] in Serum or PlasmaOrdered By: Mauri Chavira on 10-20-2024 Potassium [Moles/Vol] Potassium [Moles/v olume] in Serum or Plasma 3.5-5.1 [facility] Redraw Magnesiumon 4 Magnesium [Mass/Vol] 1.9 mg/dL Normal 1.9-2.7 [facility] Comment on above: Result Comment: PERF ORMED BY: [address] [place] [id number] PATHOLOGIST CONFIGURATION MANAGEMENT ANALYST MAY HYDE M.D. Performed By: #### G LULS #### Point of Care testing , Redraw Magnesium Normal 1.9-2.7 [facility] Comment on above: Result Comment: Spec imen hemolyzed, redraw requested PERFORMED BY: [address] [place] [address] PATHOLOGIST CONFIGURATION MANAGEMENT ANALYST MAY HYDE M.D. Performed By: #### G LULS #### Point of Care testing , Redraw Potassiumon 4 Potassium [Moles/Vol] 4.0 mmol/L Normal 3.5-5.1 [facility] Comment on above: Performed By: #### G LULS #### Point of Care testing , Redraw Potassium Normal 3.5-5.1 [facility] Comment on above: Result Comment: Spec imen hemolyzed, redraw requested Performed By: #### G LULS #### Point of Care testing , Redraw Sodiumon 10-20-2024 Sodium [Moles/Vol] 134 mmol/L Low 136-145 [facility] Comment on above: Performed By: #### G LULS #### Point of Care testing , Serum or plasma anion gap de terminationOrdered By: Mauri Chavira on 10-20-2024 Anion gap [Moles/Vol] Serum or plasma an ion gap determination [facility] Comment on above: Test not performed Sodium [Moles/volume] in Ser um or PlasmaOrdered By: Mauri Chavira on 10-20-2024 Sodium [Moles/Vol] Sodium [Moles/volume ] in Serum or Plasma Low 136-145 [facility] Urea nitrogen [Mass/volume] in Serum or PlasmaOrdered By: Mauri Chavira on 10-20-2024 Urea nitrogen [Mass/Vol] Urea nitrogen [Mass/volume] in Serum or Plasma High 7-25 [facility] Basic Metabolic Panelon 12-0 Anion gap [Moles/Vol] 14.7 mmol/L Normal 6.0-15.0 [facility] Comment on above: Performed By: #### B MAINTENANCE TEAM MEMBER, HS TROP, PT, CBC, BMP #### [facility] [address] Calcium [Mass/Vol] 9.1 mg/dL Normal 8.6-10.3 [facility] Comment on above: Performed By: #### B MAINTENANCE TEAM MEMBER, HS TROP, PT, CBC, BMP #### [facility] [address] Chloride [Moles/Vol] 95 mmol/L Low 98-107 [facility] Comment on above: Performed By: #### B MAINTENANCE TEAM MEMBER, HS TROP, PT, CBC, BMP #### [facility] [address] CO2 [Moles/Vol] 28.6 mmol/L Normal 21.0-31.0 [facility] Comment on above: Performed By: #### B MAINTENANCE TEAM MEMBER, HS TROP, PT, CBC, BMP #### [facility] [address] [place] [address] [place] Creatinine [Mass/Vol] 2.71 mg/dL Significan t change up 0.60-1.20 [facility] Comment on above: Performed By: #### B MAINTENANCE TEAM MEMBER, HS TROP, PT, CBC, BMP #### [facility] [address] [place] [address] [place] Creatinine Clr Calc Pharmacy 21.49 Normal [facility] Comment on above: Performed By: #### B MAINTENANCE TEAM MEMBER, HS TROP, PT, CBC, BMP #### [facility] [address] [place] [address] [place] Estimated GFR 17.432 mL/Min Normal [facility] Comment on above: Performed By: #### B MAINTENANCE TEAM MEMBER, HS TROP, PT, CBC, BMP #### [facility] [address] [place] [address] [place] Glucose [Mass/Vol] 288 mg/dL High 70-100 [facility] Comment on above: Result Comment: [facility] Glucose Reference Range is dependent on time and content of last meal. Glucose of more than 200 mg/dL in a nonstressed, ambulatory subject supports the diagnosis of Diabetes Mellitus. ADA recommended reference range Performed By: #### B MAINTENANCE TEAM MEMBER, HS TROP, PT, CBC, BMP #### [address] Potassium [Moles/Vol] 4.3 mmol/L Normal 3.5-5.1 [facility] Comment on above: Performed By: #### B MAINTENANCE TEAM MEMBER, HS TROP, PT, CBC, BMP #### [place] [address] [place] Sodium [Moles/Vol] 134 mmol/L Low 136-145 [facility] Comment on above: Performed By: #### B MAINTENANCE TEAM MEMBER, HS TROP, PT, CBC, BMP #### [place] [address] [place] Urea nitrogen [Mass/Vol] 77 mg/dL High 7-25 [facility] Comment on above: Performed By: #### B MAINTENANCE TEAM MEMBER, HS TROP, PT, CBC, BMP #### [address] Glucose Poct Glucometerson 1 12-20-2023 Glucose [Mass/Vol] 222 mg/dL Normal [facility] Comment on above: Result Comment: [facility] Glucose Reference Range is dependent on time and content of last meal. Glucose of more than 200 mg/dL in a nonstressed, ambulatory subject supports the diagnosis of Diabetes Mellitus. PERFORMED BY: [place] [address] PATHOLOGIST CONFIGURATION MANAGEMENT ANALYST MAY HYDE M.D. Performed By: #### G LULS #### Point of Care testing , Glucose [Mass/Vol] 306 mg/dL Normal [facility] Comment on above: Result Comment: [facility] Glucose Reference Range is dependent on time and content of last meal. Glucose of more than 200 mg/dL in a nonstressed, ambulatory subject supports the diagnosis of Diabetes Mellitus. PERFORMED BY: [place] [id number] PATHOLOGIST CONFIGURATION MANAGEMENT ANALYST MAY HYDE M.D. Performed By: #### G LULS #### Point of Care testing , Glucose [Mass/Vol] 342 mg/dL Normal [facility] Comment on above: Result Comment: [facility] Glucose Reference Range is dependent on time and content of last meal. Glucose of more than 200 mg/dL in a nonstressed, ambulatory subject supports the diagnosis of Diabetes Mellitus. PERFORMED BY: [place] [address] PATHOLOGIST CONFIGURATION MANAGEMENT ANALYST MAY HYDE M.D. Performed By: #### G LULS #### Point of Care testing , Glucose [Mass/Vol] 267 mg/dL Normal [facility] Comment on above: Result Comment: [facility] Glucose Reference Range is dependent on time and content of last meal. Glucose of more than 200 mg/dL in a nonstressed, ambulatory subject supports the diagnosis of Diabetes Mellitus. PERFORMED BY: [place] [address] PATHOLOGIST CONFIGURATION MANAGEMENT ANALYST MAY HYDE M.D. Performed By: #### B MAINTENANCE TEAM MEMBER, HS TROP, PT, CBC, BMP #### [place] [id number] [facility] Magnesiumon 10-19-2024 Magnesium [Mass/Vol] 2.0 mg/dL Normal 1.9-2.7 [facility] Comment on above: Result Comment: PERF ORMED BY: [place] [address] PATHOLOGIST CONFIGURATION MANAGEMENT ANALYST MAY HYDE M.D. Performed By: #### B MAINTENANCE TEAM MEMBER, HS TROP, PT, CBC, BMP #### [address] Basic Metabolic Panelon 12-0 7-2024 Anion gap [Moles/Vol] 15.4 mmol/L High 6.0-15.0 [facility] Comment on above: Order Comment: REY PARKER NOTIFIED. SMB 0442. Performed By: #### B MAINTENANCE TEAM MEMBER, HS TROP, PT, CBC, BMP #### [facility] [address] Calcium [Mass/Vol] 9.5 mg/dL Normal 8.6-10.3 [facility] Comment on above: Order Comment: REY PARKER NOTIFIED. SMB 0442. Performed By: #### B MAINTENANCE TEAM MEMBER, HS TROP, PT, CBC, BMP #### [facility] [address] Chloride [Moles/Vol] 97 mmol/L Low 98-107 [facility] Comment on above: Order Comment: REY PARKER NOTIFIED. SMB 0442. Performed By: #### B MAINTENANCE TEAM MEMBER, HS TROP, PT, CBC, BMP #### [address] CO2 [Moles/Vol] 29.7 mmol/L Normal 21.0-31.0 [facility] Comment on above: Order Comment: REY PARKER NOTIFIED. SMB 0442. Performed By: #### B MAINTENANCE TEAM MEMBER, HS TROP, PT, CBC, BMP #### [facility] [address] Creatinine [Mass/Vol] 1.81 mg/dL High 0.60-1.20 [facility] Comment on above: Order Comment: REY PARKER NOTIFIED. SMB 0442. Performed By: #### B MAINTENANCE TEAM MEMBER, HS TROP, PT, CBC, BMP #### [facility] [address] [place] [address] [place] Creatinine Clr Calc Pharmacy 32.95 Normal [facility] Comment on above: Order Comment: REY PARKER NOTIFIED. SMB 0442. Performed By: #### B MAINTENANCE TEAM MEMBER, HS TROP, PT, CBC, BMP #### [facility] [address] [place] [address] [place] Estimated GFR 28.294 mL/Min Normal [facility] Comment on above: Order Comment: REY PARKER NOTIFIED. SMB 0442. Performed By: #### B MAINTENANCE TEAM MEMBER, HS TROP, PT, CBC, BMP #### [address] Glucose [Mass/Vol] 220 mg/dL High 70-100 [facility] Comment on above: Order Comment: REY PARKER NOTIFIED. SMB 0442. Result Comment: [facility] Glucose Reference Range is dependent on time and content of last meal. Glucose of more than 200 mg/dL in a nonstressed, ambulatory subject supports the diagnosis of Diabetes Mellitus. ADA recommended reference range Performed By: #### B MAINTENANCE TEAM MEMBER, HS TROP, PT, CBC, BMP #### [address] Potassium [Moles/Vol] 4.1 mmol/L Normal 3.5-5.1 [facility] Comment on above: Order Comment: REY PARKER NOTIFIED. SMB 0442. Performed By: #### B MAINTENANCE TEAM MEMBER, HS TROP, PT, CBC, BMP #### [address] Sodium [Moles/Vol] 138 mmol/L Normal 136-145 [facility] Comment on above: Order Comment: REY PARKER NOTIFIED. SMB 0442. Performed By: #### B MAINTENANCE TEAM MEMBER, HS TROP, PT, CBC, BMP #### [address] Urea nitrogen [Mass/Vol] 66 mg/dL High 7-25 [facility] Comment on above: Order Comment: REY PARKER NOTIFIED. SMB 0442. Performed By: #### B MAINTENANCE TEAM MEMBER, HS TROP, PT, CBC, BMP #### [place] [address] [place] Free T4 (Free Thyroxine)on 12-19-2023 Free T4 [Mass/Vol] 1.26 ng/dL High 0.61-1.12 [facility] Comment on above: Order Comment: REY PARKER NOTIFIED. SMB 0442. Performed By: #### B MAINTENANCE TEAM MEMBER, HS TROP, PT, CBC, BMP #### [facility] [address] Glucose Poct Glucometerson 1 12-19-2023 Glucose [Mass/Vol] 329 mg/dL Normal [facility] Comment on above: Result Comment: [place] [facility] Glucose Reference Range is dependent on time and content of last meal. Glucose of more than 200 mg/dL in a nonstressed, ambulatory subject supports the diagnosis of Diabetes Mellitus. PERFORMED BY: [place] [address] PATHOLOGIST CONFIGURATION MANAGEMENT ANALYST MAY HYDE M.D. Performed By: #### B MAINTENANCE TEAM MEMBER, HS TROP, PT, CBC, BMP #### [address] Glucose [Mass/Vol] 210 mg/dL Normal [facility] Comment on above: Result Comment: [place] [facility] Glucose Reference Range is dependent on time and content of last meal. Glucose of more than 200 mg/dL in a nonstressed, ambulatory subject supports the diagnosis of Diabetes Mellitus. PERFORMED BY: [place] [address] PATHOLOGIST CONFIGURATION MANAGEMENT ANALYST MAY HYDE M.D. Performed By: #### B MAINTENANCE TEAM MEMBER, HS TROP, PT, CBC, BMP #### [address] Glucose [Mass/Vol] 251 mg/dL Normal [facility] Comment on above: Result Comment: [place] [facility] Glucose Reference Range is dependent on time and content of last meal. Glucose of more than 200 mg/dL in a nonstressed, ambulatory subject supports the diagnosis of Diabetes Mellitus. PERFORMED BY: [place] [address] PATHOLOGIST CONFIGURATION MANAGEMENT ANALYST MAY HYDE M.D. Performed By: #### G LULS #### Point of Care testing , Glucose [Mass/Vol] 207 mg/dL Normal [facility] Comment on above: Result Comment: [place] [facility] Glucose Reference Range is dependent on time and content of last meal. Glucose of more than 200 mg/dL in a nonstressed, ambulatory subject supports the diagnosis of Diabetes Mellitus. PERFORMED BY: [place] [address] PATHOLOGIST CONFIGURATION MANAGEMENT ANALYST MAY HYDE M.D. Performed By: #### B MAINTENANCE TEAM MEMBER, HS TROP, PT, CBC, BMP #### [address] Glucose [Mass/Vol] 188 mg/dL Normal [facility] Comment on above: Result Comment: [facility] Glucose Reference Range is dependent on time and content of last meal. Glucose of more than 200 mg/dL in a nonstressed, ambulatory subject supports the diagnosis of Diabetes Mellitus. PERFORMED BY: [place] [address] PATHOLOGIST CONFIGURATION MANAGEMENT ANALYST MAY HYDE M.D. Performed By: #### B MAINTENANCE TEAM MEMBER, HS TROP, PT, CBC, BMP #### [address] Magnesiumon 10-18-2024 Magnesium [Mass/Vol] 2.1 mg/dL Normal 1.9-2.7 [facility] Comment on above: Order Comment: REY PARKER NOTIFIED. SMB 0442. Performed By: #### B MAINTENANCE TEAM MEMBER, HS TROP, PT, CBC, BMP #### [address] Serum or plasma thyroperoxid ase antibody assay (units/volume)Ordered By: Mauri Chavira on 10-18-2024 TPO Ab Qn Serum or plasma thyroperoxidase antibody assay (units/volume) 0-34 [facility] Comment on above: Performed at: [facility] [address] [id number] Director: Dimitri Landis PhD, Phone: [phone] Thyroid Peroxidase Antibodie son 10-18-2024 Thyroid Peroxidase Antibodies <9 Normal 0-34 [facility] Comment on above: Order Comment: REY PARKER NOTIFIED. SMB 0442. Result Comment: Perf ormed at: [facility] [address] [id number] Technical Lead: Dimitri Landis PhD, Phone: [phone] PERFORMED BY: [place] [address] PATHOLOGIST CONFIGURATION MANAGEMENT ANALYST MAY HYDE M.D. Performed By: #### B MAINTENANCE TEAM MEMBER, HS TROP, PT, CBC, BMP #### [address] Thyroid Stimulating Hormoneo n 10-18-2024 TSH Qn 1.86 m[IU]/L Normal 0.45-5.33 The [facility] Comment on above: Order Comment: REY PARKER NOTIFIED. B [id number]. Result Comment: PERF ORMED BY: [place] [address] PATHOLOGIST CONFIGURATION MANAGEMENT ANALYST MAY HYDE M.D. Performed By: #### B MAINTENANCE TEAM MEMBER, HS TROP, PT, CBC, BMP #### [address] Thyrotropin [Units/volume] i n Serum or PlasmaOrdered By: Mauri Chavira on 10-18-2024 TSH Qn Thyrotropin [Units/volume] in Serum or Plasma 0.45-5.33 [facility] Thyroxine (T4) free [Mass/vo lume] in Serum or PlasmaOrdered By: Mauri Chavira on 10-18-2024 Free T4 [Mass/Vol] Thyroxine (T4) free [Mass/volume] in Serum or Plasma High 0.61-1.12 [facility] Alanine aminotransferase [En zymatic activity/volume] in Serum or PlasmaOrdered By: Mauri Chavira on 10-17-2024 ALT [Catalytic activity/Vol] Alanine aminotransferase [Enzymatic activity/volume] in Serum or Plasma [facility] Albumin [Mass/volume] in Ser um or Plasma by Bromocresol green (BCG) dye binding methoOrdered By: Mauri Chavira on 10-17-2024 Albumin BCG dye [Mass/Vol] Albumin [Mass/volume] in Serum or Plasma by Bromocresol green (BCG) dye binding metho 3.5-5.7 [facility] Alkaline phosphatase [Enzyma tic activity/volume] in Serum or PlasmaOrdered By: Mauri Chavira on 10-17-2024 ALP [Catalytic activity/Vol] Alkaline phosphatase [Enzymatic activity/volume] in Serum or Plasma 34-104 [facility] Aspartate aminotransferase [ Enzymatic activity/volume] in Serum or PlasmaOrdered By: Mauri Chavira on 10-17-2024 AST [Catalytic activity/Vol] Aspartate aminotransferase [Enzymatic activity/volume] in Serum or Plasma 13-39 [facility] Basophils Auto (Bld) [#/Vol] Ordered By: Mauri Chavira on 10-17-2024 Basophils (Bld) [#/Vol] Automated basophil count 0.0-0.2 [facility] Basophils/100 WBC Auto (Bld) Ordered By: Mauri Chavira on 10-17-2024 Basophils/100 WBC (Bld) Automated basophil % . [facility] Bilirubin.total [Mass/volume ] in Serum or PlasmaOrdered By: Mauri Chavira on 10-17-2024 Bilirubin [Mass/Vol] Bilirubin.total [Mass/volume] in Serum or Plasma 0.3-1.0 [facility] Complete Blood Count Auto Di ffon 10-17-2024 Basophils (Bld) [#/Vol] 0.1 10*3/uL Normal 0.0-0.2 [facility] Comment on above: Result Comment: PERF ORMED BY: [facility] [address] [place] [address] PATHOLOGIST CONFIGURATION MANAGEMENT ANALYST MAY HYDE M.D. Performed By: #### G LULS #### Point of Care testing , Basophils/100 WBC (Bld) 0.8 % Normal . [facility] Comment on above: Performed By: #### G LULS #### Point of Care testing , Eosinophils (Bld) [#/Vol] 0.1 10*3/uL Normal 0.0-0.45 [facility] Comment on above: Performed By: #### G LULS #### Point of Care testing , Eosinophils/100 WBC (Bld) 0.7 % Normal . [facility] Comment on above: Performed By: #### G LULS #### Point of Care testing , Erythrocyte distribution width (RBC) [Ratio] 15.4 % High 11.9-15.3 [facility] Comment on above: Performed By: #### G LULS #### Point of Care testing , Hematocrit (Bld) [Volume fraction] 40.4 % Normal 34.0-46.4 [facility] Comment on above: Performed By: #### G LULS #### Point of Care testing , Hemoglobin (Bld) [Mass/Vol] 13.3 g/dL Normal 11.8-15.4 [facility] Comment on above: Performed By: #### G LULS #### Point of Care testing , Lymphocytes (Bld) [#/Vol] 1.4 10*3/uL Normal 1.00-4.8 [facility] Comment on above: Performed By: #### G LULS #### Point of Care testing , Lymphocytes/100 WBC (Bld) 15.2 % Normal . [facility] Comment on above: Performed By: #### G LULS #### Point of Care testing , MCH (RBC) [Entitic mass] 29.3 pg Normal 24.7-34.3 [facility] Comment on above: Performed By: #### G LULS #### Point of Care testing , MCV (RBC) [Entitic vol] 88.8 fL Normal 80-100 [facility] Comment on above: Performed By: #### G LULS #### Point of Care testing , Mean Corpuscular HGB Conc 33.0 g/dL Normal 32.0-35.0 [facility] Comment on above: Performed By: #### G LULS #### Point of Care testing , Monocytes (Bld) [#/Vol] 0.7 10*3/uL Normal 0.0-0.8 [facility] Comment on above: Performed By: #### G LULS #### Point of Care testing , Monocytes/100 WBC (Bld) 7.2 % Normal . [facility] Comment on above: Performed By: #### G LULS #### Point of Care testing , Neutrophils (Bld) [#/Vol] 7.0 10*3/uL Normal 1.8-7.7 [facility] Comment on above: Performed By: #### G LULS #### Point of Care testing , Neutrophils/100 WBC (Bld) 76.1 % Normal . [facility] Comment on above: Performed By: #### G LULS #### Point of Care testing , NRBC% 0.0 /100{WBC} Normal 0-0.5 [facility] Comment on above: Performed By: #### G LULS #### Point of Care testing , Platelet mean volume (Bld) [Entitic vol] 9.5 fL Normal 6.3-10.7 [facility] Comment on above: Performed By: #### G LULS #### Point of Care testing , Platelets (Bld) [#/Vol] 183 10*3/uL Normal 150-450 [facility] Comment on above: Performed By: #### G LULS #### Point of Care testing , RBC (Bld) [#/Vol] 4.55 10*6/uL Normal 3.60-5.00 [facility] Comment on above: Performed By: #### G LULS #### Point of Care testing , WBC (Bld) [#/Vol] 9.2 10*3/uL Normal 3.8-11.6 [facility] Comment on above: Performed By: #### G LULS #### Point of Care testing , Comprehensive Metabolic Pane daniele 10-17-2024 Albumin [Mass/Vol] 3.5 g/dL Normal 3.5-5.7 [facility] Comment on above: Performed By: #### G LULS #### Point of Care testing , Albumin/Globulin [Mass ratio] 0.9 {ratio} Normal [facility] Comment on above: Performed By: #### G LULS #### Point of Care testing , ALP [Catalytic activity/Vol] 99 U/L Normal 34-104 [facility] Comment on above: Performed By: #### G LULS #### Point of Care testing , ALT [Catalytic activity/Vol] 42 U/L Normal 7-52 [facility] Comment on above: Performed By: #### G LULS #### Point of Care testing , Anion gap [Moles/Vol] 14.7 mmol/L Normal 6.0-15.0 [facility] Comment on above: Performed By: #### G LULS #### Point of Care testing , AST [Catalytic activity/Vol] 35 U/L Normal 13-39 [facility] Comment on above: Performed By: #### G LULS #### Point of Care testing , Bilirubin [Mass/Vol] 0.6 mg/dL Normal 0.3-1.0 [facility] Comment on above: Performed By: #### G LULS #### Point of Care testing , Calcium [Mass/Vol] 9.6 mg/dL Normal 8.6-10.3 [facility] Comment on above: Performed By: #### G LULS #### Point of Care testing , Chloride [Moles/Vol] 99 mmol/L Normal 98-107 [facility] Comment on above: Performed By: #### G LULS #### Point of Care testing , CO2 [Moles/Vol] 25.3 mmol/L Normal 21.0-31.0 [facility] Comment on above: Performed By: #### G LULS #### Point of Care testing , Creatinine [Mass/Vol] 1.99 mg/dL High 0.60-1.20 [facility] Comment on above: Performed By: #### G LULS #### Point of Care testing , Creatinine Clr Calc Pharmacy 29.98 Normal [facility] Comment on above: Performed By: #### G LULS #### Point of Care testing , Estimated GFR 25.252 mL/Min Normal [facility] Comment on above: Performed By: #### G LULS #### Point of Care testing , Globulin (S) [Mass/Vol] 3.9 g/dL Normal [facility] Comment on above: Performed By: #### G LULS #### Point of Care testing , Glucose [Mass/Vol] 228 mg/dL High 70-100 [facility] Comment on above: Result Comment: [place] Glucose Reference Range is dependent on time and content of last meal. Glucose of more than 200 mg/dL in a nonstressed, ambulatory subject supports the diagnosis of Diabetes Mellitus. ADA recommended reference range Performed By: #### G LULS #### Point of Care testing , Potassium [Moles/Vol] 5.0 mmol/L Normal 3.5-5.1 [facility] Comment on above: Performed By: #### G LULS #### Point of Care testing , Protein [Mass/Vol] 7.4 g/dL Normal 6.4-8.9 [facility] Comment on above: Performed By: #### G LULS #### Point of Care testing , Sodium [Moles/Vol] 134 mmol/L Low 136-145 [facility] Comment on above: Performed By: #### G LULS #### Point of Care testing , Urea nitrogen [Mass/Vol] 67 mg/dL High 7-25 [facility] Comment on above: Performed By: #### G LULS #### Point of Care testing , Eosinophils Auto (Bld) [#/Vo l]Ordered By: Mauri Chavira on 10-17-2024 Eosinophils (Bld) [#/Vol] Automated eosinophil count 0.0-0.45 [facility] Eosinophils/100 WBC Auto (Bl d)Ordered By: Mauri Chavira on 10-17-2024 Eosinophils/100 WBC (Bld) Automated eosinophil % . [facility] Erythrocyte distribution wid th Auto (RBC) [Ratio]Ordered By: Mauri Chavira on 10-17-2024 Erythrocyte distribution width (RBC) [Ratio] Erythrocyte distribution width [Ratio] by Automated count High 11.9-15.3 [facility] Globulin Calc (S) [Mass/Vol] Ordered By: Mauri Chavira on 10-17-2024 Globulin (S) [Mass/Vol] Serum globulin measurement by calculation (mass/volume) [facility] Glucose Poct Glucometerson 1 12-18-2023 Glucose [Mass/Vol] 245 mg/dL Normal [facility] Comment on above: Result Comment: [place] om Glucose Reference Range is dependent on time and content of last meal. Glucose of more than 200 mg/dL in a nonstressed, ambulatory subject supports the diagnosis of Diabetes Mellitus. PERFORMED BY: [address] [place] [id number] PATHOLOGIST CONFIGURATION MANAGEMENT ANALYST MAY HYDE M.D. Performed By: #### G LULS #### Point of Care testing , Glucose [Mass/Vol] 335 mg/dL Normal [facility] Comment on above: Result Comment: [place] om Glucose Reference Range is dependent on time and content of last meal. Glucose of more than 200 mg/dL in a nonstressed, ambulatory subject supports the diagnosis of Diabetes Mellitus. PERFORMED BY: [address] [place] [id number] PATHOLOGIST CONFIGURATION MANAGEMENT ANALYST MAY HYDE M.D. Performed By: #### B MAINTENANCE TEAM MEMBER, HS TROP, PT, CBC, BMP #### [address] [address] [place] Glucose [Mass/Vol] 324 mg/dL Normal [facility] Comment on above: Result Comment: [place] om Glucose Reference Range is dependent on time and content of last meal. Glucose of more than 200 mg/dL in a nonstressed, ambulatory subject supports the diagnosis of Diabetes Mellitus. PERFORMED BY: [address] [place] [id number] PATHOLOGIST CONFIGURATION MANAGEMENT ANALYST MAY HYDE M.D. Performed By: #### B MAINTENANCE TEAM MEMBER, HS TROP, PT, CBC, BMP #### [facility] [address] [place] [address] [place] Glucose [Mass/Vol] 253 mg/dL Normal [facility] Comment on above: Result Comment: [place] Glucose Reference Range is dependent on time and content of last meal. Glucose of more than 200 mg/dL in a nonstressed, ambulatory subject supports the diagnosis of Diabetes Mellitus. PERFORMED BY: [address] [place] [address] PATHOLOGIST CONFIGURATION MANAGEMENT ANALYST MAY HYDE M.D. Performed By: #### B MAINTENANCE TEAM MEMBER, HS TROP, PT, CBC, BMP #### [address] Hematocrit Auto (Bld) [Volum e fraction]Ordered By: Mauri Chavira on 10-17-2024 Hematocrit (Bld) [Volume fraction] Hematocrit [Volume Fraction] of Blood by Automated count 34.0-46.4 [facility] Hemoglobin [Mass/volume] in BloodOrdered By: Mauri Chavira on 10-17-2024 Hemoglobin (Bld) [Mass/Vol] Hemoglobin [Mass/volume] in Blood 11.8-15.4 [facility] Leukocytes [#/volume] correc gali for nucleated erythrocytes in Blood by Automated counOrdered By: Mauri Chavira on 10-17-2024 WBC corrected for nucl RBC Auto (Bld) [#/Vol] Leukocytes [#/volume] corrected for nucleated erythrocytes in Blood by Automated coun 3.8-11.6 [facility] Lymphocytes Auto (Bld) [#/Vo l]Ordered By: Mauri Chavira on 10-17-2024 Lymphocytes (Bld) [#/Vol] Lymphocytes [#/volume] in Blood by Automated count 1.00-4.8 [facility] Lymphocytes/100 WBC Auto (Bl d)Ordered By: Mauri Chavira on 10-17-2024 Lymphocytes/100 WBC (Bld) Lymphocytes/100 leukocytes in Blood by Automated count . [facility] MCH Auto (RBC) [Entitic mass ]Ordered By: Mauri Chavira on 10-17-2024 MCH (RBC) [Entitic mass] MCH [Entitic mass] by Automated count 24.7-34.3 [facility] MCHC Auto (RBC) [Mass/Vol]Or dered By: Mauri Chavira on 10-17-2024 MCHC (RBC) [Mass/Vol] MCHC [Mass/volume] by Automated count 32.0-35.0 [facility] MCV Auto (RBC) [Entitic vol] Ordered By: Mauri Chavira on 10-17-2024 MCV (RBC) [Entitic vol] MCV [Entitic volume] by Automated count 80-100 [facility] Magnesiumon 10-17-2024 Magnesium [Mass/Vol] 1.6 mg/dL Low 1.9-2.7 [facility] Comment on above: Result Comment: PERF ORMED BY: [facility] [address] [place] [address] PATHOLOGIST CONFIGURATION MANAGEMENT ANALYST MAY HYDE M.D. Performed By: #### G LULS #### Point of Care testing , Monocytes Auto (Bld) [#/Vol] Ordered By: Mauri Chavira on 10-17-2024 Monocytes (Bld) [#/Vol] Automated blood monocyte count 0.0-0.8 [facility] Monocytes/100 WBC Auto (Bld) Ordered By: Mauri Chavira on 10-17-2024 Monocytes/100 WBC (Bld) Automated monocyte % . [facility] Neutrophils Auto (Bld) [#/Vo l]Ordered By: Mauri Chavira on 10-17-2024 Neutrophils (Bld) [#/Vol] Neutrophils [#/volume] in Blood by Automated count 1.8-7.7 [facility] Neutrophils/100 WBC Auto (Bl d)Ordered By: Mauri Chavira on 10-17-2024 Neutrophils/100 WBC (Bld) Automated neutrophil % . [facility] Nucleated erythrocytes [Pres ence] in Blood by Automated countOrdered By: Mauri Chavira on 10-17-2024 Nucleated RBC Auto Ql (Bld) Nucleated erythrocytes [Presence] in Blood by Automated count 0-0.5 [facility] Platelet mean volume Auto (B ld) [Entitic vol]Ordered By: Mauri Chavira on 10-17-2024 Platelet mean volume (Bld) [Entitic vol] Platelet mean volume [Entitic volume] in Blood by Automated count 6.3-10.7 [facility] Platelets Auto (Bld) [#/Vol] Ordered By: Mauri Chavira on 10-17-2024 Platelets (Bld) [#/Vol] Platelets [#/volume] in Blood by Automated count 150-450 [facility] Protein [Mass/volume] in Ser um or PlasmaOrdered By: Mauri Chavira on 10-17-2024 Protein [Mass/Vol] Protein [Mass/volume ] in Serum or Plasma 6.4-8.9 [facility] RBC Auto (Bld) [#/Vol]Ordere d By: Mauri Chavira on 10-17-2024 RBC (Bld) [#/Vol] Erythrocytes [#/volu me] in Blood by Automated count 3.60-5.00 [facility] Serum or plasma albumin/glob ulin mass ratioOrdered By: Mauri Chavira on 10-17-2024 Albumin/Globulin [Mass ratio] Serum or plasma albumin/globulin mass ratio [facility] WBC Auto (Bld) [#/Vol]Ordere d By: Mauri Chavira on 10-17-2024 WBC (Bld) [#/Vol] Leukocytes [#/volume ] in Blood by Automated count 3.8-11.6 [facility] B-Type Natriuretic Peptideon 10-16-2024 Natriuretic peptide B (Bld) [Mass/Vol] 547.0 pg/mL High 5-100 [facility] Comment on above: Result Comment: PERF ORMED BY: [facility] [address] [place] [address] PATHOLOGIST CONFIGURATION MANAGEMENT ANALYST MAY HYDE M.D. Performed By: #### M G, CBC, PT, CK, BNP, HS TROP, BMP ####[facility] [id number] Basic Metabolic Panelon 12-0 Anion gap [Moles/Vol] 18.1 mmol/L High 6.0-15.0 [facility] Comment on above: Performed By: #### B MAINTENANCE TEAM MEMBER, HS TROP, PT, CBC, BMP #### [facility] [address] Calcium [Mass/Vol] 9.7 mg/dL Significant change down 8.6-10.3 [facility] Comment on above: Performed By: #### B MAINTENANCE TEAM MEMBER, HS TROP, PT, CBC, BMP #### [address] Chloride [Moles/Vol] 100 mmol/L Normal 98-107 [facility] Comment on above: Performed By: #### B MAINTENANCE TEAM MEMBER, HS TROP, PT, CBC, BMP #### [address] CO2 [Moles/Vol] 23.3 mmol/L Normal 21.0-31.0 [facility] Comment on above: Performed By: #### B MAINTENANCE TEAM MEMBER, HS TROP, PT, CBC, BMP #### [address] Creatinine [Mass/Vol] 2.14 mg/dL High 0.60-1.20 [facility] Comment on above: Performed By: #### B MAINTENANCE TEAM MEMBER, HS TROP, PT, CBC, BMP #### [address] Creatinine Clr Calc Pharmacy 27.88 Normal [facility] Comment on above: Result Comment: PERF ORMED BY: [place] [address] PATHOLOGIST CONFIGURATION MANAGEMENT ANALYST MAY HYDE M.D. Performed By: #### B MAINTENANCE TEAM MEMBER, HS TROP, PT, CBC, BMP #### [address] Estimated GFR 23.142 mL/Min Normal [facility] Comment on above: Performed By: #### B MAINTENANCE TEAM MEMBER, HS TROP, PT, CBC, BMP #### [address] Glucose [Mass/Vol] 301 mg/dL High 70-100 [facility] Comment on above: Result Comment: [place] Glucose Reference Range is dependent on time and content of last meal. Glucose of more than 200 mg/dL in a nonstressed, ambulatory subject supports the diagnosis of Diabetes Mellitus. ADA recommended reference range Performed By: #### B MAINTENANCE TEAM MEMBER, HS TROP, PT, CBC, BMP #### [address] Potassium [Moles/Vol] 6.4 mmol/L Off scale high 3.5-5.1 [facility] Comment on above: Result Comment: Resu lts called at 1909 on 10/16/24 Critical Result Called to and read back by: ISMA AVILA/RENETTA at: 10/16/2024 19:04:24 by:[id number] Performed By: #### B MAINTENANCE TEAM MEMBER, HS TROP, PT, CBC, BMP #### [address] Sodium [Moles/Vol] 135 mmol/L Low 136-145 [facility] Comment on above: Performed By: #### B MAINTENANCE TEAM MEMBER, HS TROP, PT, CBC, BMP #### [address] Urea nitrogen [Mass/Vol] 74 mg/dL High 7-25 [facility] Comment on above: Performed By: #### B MAINTENANCE TEAM MEMBER, HS TROP, PT, CBC, BMP #### [address] Anion gap [Moles/Vol] 13.8 mmol/L Normal 6.0-15.0 [facility] Comment on above: Performed By: #### M G, CBC, PT, CK, BNP, HS TROP, BMP ####[address] Calcium [Mass/Vol] 8.1 mg/dL Low 8.6-10.3 [facility] Comment on above: Performed By: #### M G, CBC, PT, CK, BNP, HS TROP, BMP ####[address] Chloride [Moles/Vol] 104 mmol/L Normal 98-107 [facility] Comment on above: Performed By: #### M G, CBC, PT, CK, BNP, HS TROP, BMP ####[address] CO2 [Moles/Vol] 21.5 mmol/L Normal 21.0-31.0 [facility] Comment on above: Performed By: #### M G, CBC, PT, CK, BNP, HS TROP, BMP ####[place] [id number] [address] Creatinine [Mass/Vol] 2.25 mg/dL High 0.60-1.20 [facility] Comment on above: Performed By: #### M G, CBC, PT, CK, BNP, HS TROP, BMP ####[place] [id number] [address] Creatinine Clr Calc Pharmacy 5.50 Normal [facility] Comment on above: Performed By: #### M G, CBC, PT, CK, BNP, HS TROP, BMP ####[place] [id number] [address] Estimated GFR 21.792 mL/Min Normal [facility] Comment on above: Performed By: #### M G, CBC, PT, CK, BNP, HS TROP, BMP ####[place] [id number] [address] Glucose [Mass/Vol] 388 mg/dL High 70-100 [facility] Comment on above: Result Comment: [place] Glucose Reference Range is dependent on time and content of last meal. Glucose of more than 200 mg/dL in a nonstressed, ambulatory subject supports the diagnosis of Diabetes Mellitus. ADA recommended reference range Performed By: #### M G, CBC, PT, CK, BNP, HS TROP, BMP ####[place] [id number] [address] Potassium [Moles/Vol] 6.3 mmol/L Off scale high 3.5-5.1 [facility] Comment on above: Result Comment: Crit ical Result Called to and read back by: LYNN KLINE at: 10/16/2024 14:01:43 by:[id number] Performed By: #### M G, CBC, PT, CK, BNP, HS TROP, BMP ####[place] [id number] [address] Sodium [Moles/Vol] 133 mmol/L Low 136-145 [facility] Comment on above: Performed By: #### M G, CBC, PT, CK, BNP, HS TROP, BMP ####[place] [id number] Urea nitrogen [Mass/Vol] 73 mg/dL High 7-25 [facility] Comment on above: Performed By: #### M G, CBC, PT, CK, BNP, HS TROP, BMP ####[place] [id number] [address] Blood carbon dioxide, total measurement by calculation (moles/volume)Ordered By: Kavin Escobar on 10-16-2024 CO2 Calc (Bld) [Moles/Vol] Blood carbon dioxide, total measurement by calculation (moles/volume) Low 23-29 [facility] Chloride (Bld) [Moles/Vol]Or dered By: Kavin Escobar on 10-16-2024 Chloride [Moles/Vol] Whole blood chlorid e measurement 98-109 [facility] Complete Blood Count Auto Di ffon 10-16-2024 Basophils (Bld) [#/Vol] 0.1 10*3/uL Normal 0.0-0.2 [facility] Comment on above: Result Comment: PERF ORMED BY: [facility] [address] [place] [address] PATHOLOGIST CONFIGURATION MANAGEMENT ANALYST MAY HYDE M.D. Performed By: #### M G, CBC, PT, CK, BNP, HS TROP, BMP ####[address] Basophils/100 WBC (Bld) 0.7 % Normal . [facility] Comment on above: Performed By: #### M G, CBC, PT, CK, BNP, HS TROP, BMP ####[address] Eosinophils (Bld) [#/Vol] 0.1 10*3/uL Normal 0.0-0.45 [facility] Comment on above: Performed By: #### M G, CBC, PT, CK, BNP, HS TROP, BMP ####[place] [id number] [facility] Eosinophils/100 WBC (Bld) 0.6 % Normal . [facility] Comment on above: Performed By: #### M G, CBC, PT, CK, BNP, HS TROP, BMP ####[address] Erythrocyte distribution width (RBC) [Ratio] 15.2 % Normal 11.9-15.3 [facility] Comment on above: Performed By: #### M G, CBC, PT, CK, BNP, HS TROP, BMP ####[address] Hematocrit (Bld) [Volume fraction] 35.5 % Normal 34.0-46.4 [facility] Comment on above: Performed By: #### M G, CBC, PT, CK, BNP, HS TROP, BMP ####[address] Hemoglobin (Bld) [Mass/Vol] 11.6 g/dL Low 11.8-15.4 [facility] Comment on above: Performed By: #### M G, CBC, PT, CK, BNP, HS TROP, BMP ####[address] Lymphocytes (Bld) [#/Vol] 1.2 10*3/uL Normal 1.00-4.8 [facility] Comment on above: Performed By: #### M G, CBC, PT, CK, BNP, HS TROP, BMP ####[address] Lymphocytes/100 WBC (Bld) 12.5 % Normal . [facility] Comment on above: Performed By: #### M G, CBC, PT, CK, BNP, HS TROP, BMP ####[address] MCH (RBC) [Entitic mass] 29.0 pg Normal 24.7-34.3 [facility] Comment on above: Performed By: #### M G, CBC, PT, CK, BNP, HS TROP, BMP ####[address] [place] [address] [place] MCV (RBC) [Entitic vol] 89.1 fL Normal 80-100 [facility] Comment on above: Performed By: #### M G, CBC, PT, CK, BNP, HS TROP, BMP ####[address] Mean Corpuscular HGB Conc 32.6 g/dL Normal 32.0-35.0 [facility] Comment on above: Performed By: #### M G, CBC, PT, CK, BNP, HS TROP, BMP ####[address] Monocytes (Bld) [#/Vol] 0.7 10*3/uL Normal 0.0-0.8 [facility] Comment on above: Performed By: #### M G, CBC, PT, CK, BNP, HS TROP, BMP ####[address] Monocytes/100 WBC (Bld) 18.11 % Normal 0.00-20.00 [facility] Comment on above: Performed By: #### M G, CBC, PT, CK, BNP, HS TROP, BMP ####[address] Monocytes/100 WBC (Bld) 6.8 % Normal . [facility] Comment on above: Performed By: #### M G, CBC, PT, CK, BNP, HS TROP, BMP ####[address] Neutrophils (Bld) [#/Vol] 8.0 10*3/uL High 1.8-7.7 [facility] Comment on above: Performed By: #### M G, CBC, PT, CK, BNP, HS TROP, BMP ####[address] Neutrophils/100 WBC (Bld) 79.4 % Normal . [facility] Comment on above: Performed By: #### M G, CBC, PT, CK, BNP, HS TROP, BMP ####[place] [id number] [address] NRBC% 0.1 /100{WBC} Normal 0-0.5 [facility] Comment on above: Performed By: #### M G, CBC, PT, CK, BNP, HS TROP, BMP ####[address] Platelet mean volume (Bld) [Entitic vol] 9.7 fL Normal 6.3-10.7 [facility] Comment on above: Performed By: #### M G, CBC, PT, CK, BNP, HS TROP, BMP ####[address] Platelets (Bld) [#/Vol] 181 10*3/uL Normal 150-450 [facility] Comment on above: Performed By: #### M G, CBC, PT, CK, BNP, HS TROP, BMP ####[address] RBC (Bld) [#/Vol] 3.98 10*6/uL Normal 3.60-5.00 [facility] Comment on above: Performed By: #### M G, CBC, PT, CK, BNP, HS TROP, BMP ####[address] WBC (Bld) [#/Vol] 10.0 10*3/uL Normal 3.8-11.6 [facility] Comment on above: Performed By: #### M G, CBC, PT, CK, BNP, HS TROP, BMP ####[place] [id number] [facility] Creatine Kinaseon 10-16-2024 CK [Catalytic activity/Vol] 37 U/L Normal 30-223 [facility] Comment on above: Performed By: #### M G, CBC, PT, CK, BNP, HS TROP, BMP ####[address] Creatine kinase [Enzymatic a ctivity/volume] in Serum or PlasmaOrdered By: Jorge Luis Zavala on 10-16-2024 CK [Catalytic activity/Vol] Creatine kinase [Enzymatic activity/volume] in Serum or Plasma 30 [facility] Creatinine (Bld) [Mass/Vol]O rdered By: Kavin Escobar on 10-16-2024 Creatinine [Mass/Vol] Whole blood creati nine measurement High 0.6-1.3 [facility] Comment on above: ER/ESD physician is notified/shown all ISTAT results.Critical values may be confirmed by laboratory testing ifdeemed necessary by ER attending doctor. ECG 12 lead ECGon 10-16-2024 ECG 12 lead ECG [facility] Main [place] [id number] Electrocardiograph Report Signed Patient: Joe Call MR#: [id number] 0 : 1945 Acct:[id number] Age/Sex: 79 / F ADM Date: 10/16/24 Loc: Room: [address] [place] [address] Type: DIS IN Attending Dr: Kavin Escobar [...] Moreno MD 1 12/24/23 1516 Normal [facility] ECG 12 lead ECG [facility] Main [address] [address] Electrocardiograph Report Signed Patient: Joe Call MR#: [id number] 0 : 1945 Acct:[id number] Age/Sex: 79 / F ADM Date: 10/16/24 Loc: Room: [address] [place] [address] Type: ADM IN Attending Dr: Mauri Chavira [...] Jorge Luis Zavala DO 1926 Normal [facility] ECG 12 lead ECG [facility] [place] [place] [address] Electrocardiograph Report Signed Patient: Joe Call MR#: [id number] 0 : 1945 Acct:[id number] Age/Sex: 79 / F ADM Date: 10/16/24 Loc: Room: [address] [place] [address] Type: ADM IN Attending Dr: Mauri Chavira [...] MUS Signed By Jorge Luis Zavala DO 1927 Normal [facility] Glucose Glucometer (BldC) [M ass/Vol]Ordered By: Kavin Escobar on 10-16-2024 Glucose [Mass/Vol] Capillary blood gluc ose measurement by glucometer (mass/volume) High 70-105 [facility] Glucose Poct Glucometerson 1 12-17-2023 Glucose [Mass/Vol] 266 mg/dL Normal [facility] Comment on above: Result Comment: [place] Glucose Reference Range is dependent on time and content of last meal. Glucose of more than 200 mg/dL in a nonstressed, ambulatory subject supports the diagnosis of Diabetes Mellitus. PERFORMED BY: [facility] [address] [place] [address] PATHOLOGIST CONFIGURATION MANAGEMENT ANALYST MAY HYDE M.D. Performed By: #### G MICK ####Point of Care testing, Hemoglobin Calc (Bld) [Mass/ Vol]Ordered By: Kavin Escobar on 10-16-2024 Hemoglobin (Bld) [Mass/Vol] Blood hemoglobin measurement by calculation (mass/volume) 12.0-17.0 [facility] INR in Platelet poor plasma by Coagulation assayOrdered By: Jorge Luis Zavala on 10-16-2024 INR Coag (PPP) [Relative time] INR in Platelet poor plasma by Coagulation assay [facility] Comment on above: INR Therapeutic Rang [...] Chloride [Moles/Vol] 104.0 mmol/L Normal 98-109 [facility] Comment on above: Performed By: #### B MAINTENANCE TEAM MEMBER, HS TROP, PT, CBC, BMP #### [address] CO2 [Moles/Vol] 22 mmol/L Low 23-29 [facility] Comment on above: Performed By: #### B MAINTENANCE TEAM MEMBER, HS TROP, PT, CBC, BMP #### [address] Creatinine [Mass/Vol] 2.3 mg/dL High 0.6-1.3 [facility] Comment on above: Result Comment: ER/E [place] physician is notified/shown all ISTAT results. Critical values may be confirmed by laboratory testing if deemed necessary by ER attending doctor. Performed By: #### B MAINTENANCE TEAM MEMBER, HS TROP, PT, CBC, BMP #### [address] Glucose [Mass/Vol] 390 mg/dL High 70-105 [facility] Comment on above: Result Comment: PERF ORMED BY: [place] [address] PATHOLOGIST CONFIGURATION MANAGEMENT ANALYST MAY HYDE M.D. Performed By: #### B MAINTENANCE TEAM MEMBER, HS TROP, PT, CBC, BMP #### [address] Hemoglobin (Bld) [Mass/Vol] 12.2 g/dL Normal 12.0-17.0 [facility] Comment on above: Performed By: #### B MAINTENANCE TEAM MEMBER, HS TROP, PT, CBC, BMP #### [address] ISTAT Ionized Calcium 1.11 mol/L Low 1.12-1.32 [facility] Comment on above: Performed By: #### B MAINTENANCE TEAM MEMBER, HS TROP, PT, CBC, BMP #### [facility] [address] Potassium [Moles/Vol] 6.4 mmol/L Off scale high 3.5-4.9 [facility] Comment on above: Performed By: #### B MAINTENANCE TEAM MEMBER, HS TROP, PT, CBC, BMP #### [facility] [address] Sodium [Moles/Vol] 134 mmol/L Low 138-146 [facility] Comment on above: Performed By: #### B MAINTENANCE TEAM MEMBER, HS TROP, PT, CBC, BMP #### [facility] [address] Urea nitrogen [Mass/Vol] 69 mg/dL High 8-26 [facility] Comment on above: Performed By: #### B MAINTENANCE TEAM MEMBER, HS TROP, PT, CBC, BMP #### [address] ISTAT ER Chem8+ PanelOrdered By: Kavin Escobar on 10-16-2024 Hematocrit (Bld) [Volume fraction] 36.0 % Low 38.0-51.0 [facility] Comment on above: Performed By: #### B MAINTENANCE TEAM MEMBER, HS TROP, PT, CBC, BMP #### [address] Magnesiumon 10-16-2024 Magnesium [Mass/Vol] 1.4 mg/dL Low 1.9-2.7 [facility] Comment on above: Result Comment: PERF ORMED BY: [place] [address] PATHOLOGIST CONFIGURATION MANAGEMENT ANALYST MAY HYDE M.D. Performed By: #### M G, CBC, PT, CK, BNP, HS TROP, BMP ####[facility] Monocyte distribution width [Entitic volume] in Blood by AutomatedOrdered By: Jorge Luis Zavala on 10-16-2024 Monocyte distribution width Auto (Bld) [Entitic vol] Monocyte distribution width [Entitic volume] in Blood by Automated 0.00-20.00 [facility] Natriuretic peptide B [Mass/ Vol]Ordered By: Jorge Luis Zavala on 10-16-2024 Natriuretic peptide B (Bld) [Mass/Vol] BNP ser/plas High 5-100 [facility] Potassium (Bld) [Moles/Vol]O rdered By: Kavin Escobar on 10-16-2024 Potassium [Moles/Vol] Whole blood potass ium measurement Critically high 3.5-4.9 [facility] Prothrombin Time INRon 10-16 INR Coag (PPP) [Relative time] 2.6 {INR} Normal [facility] Comment on [...] heart valves: 3 - 4.5 PERFORMED BY: [facility] [address] [place] [id number] PATHOLOGIST CONFIGURATION MANAGEMENT ANALYST MAY HYDE M.D. Performed By: #### M G, CBC, PT, CK, BNP, HS TROP, BMP ####[place] [address] [place] [address] [facility] PT Coag (PPP) [Time] 28.9 s High 9.0-12.9 [facility] Comment on above: Result Comment: A he matocrit value greater than 55% may lead to inaccurate results in coagulation testing. Patients having hematocrit values >55% require a special collection tube for coagulation studies. Please contact the laboratory at [phone] for redraw instructions. Performed By: #### M G, CBC, PT, CK, BNP, HS TROP, BMP ####[facility] [place] [address] [facility] Prothrombin time (PT)Ordered By: Jorge Luis Zavala on 10-16-2024 PT Coag (PPP) [Time] Prothrombin time (PT) High 9.0- 12.9 [facility] Comment on above: A hematocrit value g reater than 55% may lead to inaccurate results in coagulation testing. Patients having hematocrit values >55% require a special collection tube for coagulation studies. Please contact the laboratory at [phone] for redraw instructions. Sodium (Bld) [Moles/Vol]Orde red By: Kavin Escobar on 10-16-2024 Sodium [Moles/Vol] Whole blood sodium measurement Low 138-146 [facility] Troponin I High Sensitivityo n 10-16-2024 Troponin I High Sensitivity 9.9 pg/mL Normal 0.0-15.0 [facility] Comment on above: Result Comment: PERF ORMED BY: [facility] [address] [place] [id number] PATHOLOGIST CONFIGURATION MANAGEMENT ANALYST MAY HYDE M.D. Performed By: #### M G, CBC, PT, CK, BNP, HS TROP, BMP ####[facility] [place] [id number] [facility] Troponin I.cardiac [Mass/vol ume] in Serum or Plasma by Detection limit <= 0.01 ng/Ordered By: Jorge Luis Zavala on 10-16-2024 Troponin I.cardiac DL <= 0.01 ng/mL [Mass/Vol] Troponin I.cardiac [Mass/volume] in Serum or Plasma by Detection limit <= 0.01 ng/ 0.0-15.0 [facility] Urea nitrogen (Bld) [Mass/Vo l]Ordered By: Kavin Escobar on 10-16-2024 Urea nitrogen [Mass/Vol] Blood urea nitrogen (BUN) measurement in whole blood (mass/volume) High 8-26 [facility] Whole blood ionized calcium measurement (moles/volume)Ordered By: Kavin Escobar on 10-16-2024 Calcium.ionized (Bld) [Moles/Vol] Whole blood ionized calcium measurement (moles/volume) Low 1.12-1.32 [facility] XR chest 1V portableon 10-16 XR chest 1V portable [facility] Main [place] [address] [place] [address] XRay Report Signed Patient: Joe Call MR#: [id number] 0 : 1945 Acct:[id number] Age/Sex: 79 / F ADM Date: 10/16/24 Loc: ER Room: Type: [facility] ER Attending Dr: Copies to: Jorge Luis Zavala DO Ordering Provider: Jogre Luis Zavala DO Date of Service: 10/16/24 [...] Jarred Randolph M.D.10/16/2024 2:10 PM Dictation Location: [facility]--23 Transcribed By: [facility] 10/16/24 1410 Dictated By: Jarred Randolph DO 10/16/24 1407 Signed By: 10/16/24 1410 Normal [facility] 37on 10-08-2024 37 *Cut lisinopril in h rae to 10mg daily. *Follow-up labs in 2 weeks. *Limit fluid intake to 64oz or 2 liters a day. Normal [facility] Office Visiton 10-08-2024 Follow-up visit [id number] Joe Call 1945 F Date Provider Department Center 10/08/2024 Moris-YAMEL PANDYA Family History Problem Relation Age of Onset Coronary artery disease Other Diabetes Other Polycystic kidney disease Other Family Status - Relation Status Age at Other Level of Service:34760 [place] OFFICE/OUTPATIENT ESTABLISHED MOD MDM 30 MIN Reason for Visit and Comments: Congestive Heart Failure [127] Hypertension [095285] Atrial Fibrillation [80] Normal [facility] Estimated glomerular filtrat ion rate (GFR) non- Americanon 09-29-2024 GFR/1.73 sq M.predicted among non-blacks MDRD (S/P/Bld) [Vol rate/Area] Estimated glomerular filtration rate (GFR) non- Low >=60 mL/min/1.73 m 2 [facility] Laboratory - Chemistry and C hemistry - challengeon 09-29-2024 Calcium [Mass/Vol] 8.8 mg/dL 8.5-10.1 [facility] Chloride [Moles/Vol] 102 mmol/L 98-107 [facility] CO2 [Moles/Vol] 24.9 mmol/L 21.0-32.0 [facility] Creatinine [Mass/Vol] 1.92 mg/dL High 0.55-1.02 [facility] GFR/1.73 sq M.predicted MDRD (S/P/Bld) [Vol rate/Area] 31 mL/min/{1.73_m2} Low >=60 mL/min/1.73 m 2 [facility] Glucose [Mass/Vol] 387 mg/dL High 74-106 [facility] Potassium [Moles/Vol] 5.0 mmol/L 3.5-5.1 [facility] Sodium [Moles/Vol] 136 mmol/L 136-145 [facility] Urea nitrogen [Mass/Vol] 64.0 mg/dL High 7.0-18.0 [facility] Urea nitrogen/Creatinine [Mass ratio] 33.3 mg/mg [facility] Serum or plasma anion gap de terminationon 09-29-2024 Anion gap [Moles/Vol] Serum or plasma an ion gap determination [facility] 37on 09-03-2024 37 *Your kidney functio [...] of breath or worsening leg swelling. Normal [facility] Office Visiton 09-03-2024 Follow-up visit [id number] Joe Call 1945 F Date Provider Department Center 09/03/2024 YAMEL OCAMPO Family History Problem Relation Age of Onset Coronary artery disease Other Diabetes Other Polycystic kidney disease Other Family Status - Relation Status Age at Other Level of Service:96171 [place] OFFICE/OUTPATIENT ESTABLISHED MOD MDM 30 MIN Reason for Visit and Comments: Congestive Heart Failure [127] Atrial Fibrillation [80] Hypertension [862543] Normal [facility] Office Visiton 08-20-2024 Follow-up visit [id number] Joe Call 1945 F Date Provider Department Center 08/20/2024 YAMEL OCAMPO Family History Problem Relation Age of Onset Coronary artery disease Other Diabetes Other Polycystic kidney disease Other Family Status - Relation Status Age at Other Level of Service:00877 [place] OFFICE/OUTPATIENT ESTABLISHED MOD MDM 30 MIN Reason for Visit and Comments: Congestive Heart Failure [127] Normal [facility] Basophils Auto (Bld) [#/Vol] on 07-25-2024 Basophils (Bld) [#/Vol] 0.1 10 3/uL 0.0-0.1 [facility] Basophils/100 WBC Auto (Bld) on 07-25-2024 Basophils/100 WBC (Bld) 1.2 % 0.2-2.0 [facility] Eosinophils/100 WBC Auto (Bl d)on 07-25-2024 Eosinophils/100 WBC (Bld) 1.6 % 0.9-7.0 [facility] Erythrocyte distribution wid th Auto (RBC) [Ratio]on 07-25-2024 Erythrocyte distribution width (RBC) [Ratio] 13.7 % 11.0-15.0 [facility] Estimated glomerular filtrat ion rate (GFR) non- Americanon 07-25-2024 GFR/1.73 sq M.predicted among non-blacks MDRD (S/P/Bld) [Vol rate/Area] 47 mL/min/{1.73_m2} Low >=60 [facility] Globulin Calc (S) [Mass/Vol] on 07-25-2024 Globulin (S) [Mass/Vol] 4.7 g/dL [facility] Hematocrit Auto (Bld) [Volum e fraction]on 07-25-2024 Hematocrit (Bld) [Volume fraction] 33.6 % Low 36.0-48.0 [facility] Hemoglobin [Mass/volume] in Bloodon 07-25-2024 Hemoglobin (Bld) [Mass/Vol] 11.0 g/dL Low 12.0-16.0 [facility] Laboratory - Chemistry and C hemistry - challengeon 07-25-2024 Albumin [Mass/Vol] 2.3 g/dL Low 3.4-5.0 [facility] [facility] ALP [Catalytic activity/Vol] 101 U/L 46-116 [facility] ALT [Catalytic activity/Vol] 14 U/L 14-59 [facility] AST [Catalytic activity/Vol] 13 U/L Low 15-37 [facility] Bilirubin [Mass/Vol] 0.8 mg/dL 0.2-1.0 [facility] Calcium [Mass/Vol] 8.6 mg/dL 8.5-10.1 [facility] Chloride [Moles/Vol] 102 mmol/L 98-107 [facility] CO2 [Moles/Vol] 27.8 mmol/L 21.0-32.0 [facility] Creatinine [Mass/Vol] 1.13 mg/dL High 0.55-1.02 [facility] GFR/1.73 sq M.predicted MDRD (S/P/Bld) [Vol rate/Area] 56 mL/min/{1.73_m2} Low >=60 [facility] Glucose [Mass/Vol] 228 mg/dL High 74-106 [facility] Potassium [Moles/Vol] 3.7 mmol/L 3.5-5.1 [facility] Protein [Mass/Vol] 7.0 g/dL 6.4-8.2 [facility] Sodium [Moles/Vol] 140 mmol/L 136-145 [facility] Urea nitrogen [Mass/Vol] 26.0 mg/dL High 7.0-18.0 [facility] Urea nitrogen/Creatinine [Mass ratio] 23.0 mg/mg [facility] Laboratory - Hematology and Cell countson 07-25-2024 Immature granulocytes/100 WBC (Bld) 0.2 % 0.0-0.5 [facility] Leukocytes [#/volume] correc gali for nucleated erythrocytes in Blood by Automated counon 07-25-2024 WBC corrected for nucl RBC Auto (Bld) [#/Vol] 8.7 10 3/uL 4.0-11.0 [facility] Lymphocytes Auto (Bld) [#/Vo l]on 07-25-2024 Lymphocytes (Bld) [#/Vol] 1.4 10 3/uL 1.2-3.8 [facility] Lymphocytes/100 WBC Auto (Bl d)on 07-25-2024 Lymphocytes/100 WBC (Bld) 15.9 % Low 20.5-60.0 [facility] MCH Auto (RBC) [Entitic mass ]on 07-25-2024 MCH (RBC) [Entitic mass] 29.7 pg 26.7-34.0 [facility] MCHC Auto (RBC) [Mass/Vol]on 07-25-2024 MCHC (RBC) [Mass/Vol] 32.7 g/dL 29.9-35.2 [facility] MCV Auto (RBC) [Entitic vol] on 07-25-2024 MCV (RBC) [Entitic vol] 90.8 fL 81.0-99.0 [facility] Monocytes Auto (Bld) [#/Vol] on 07-25-2024 Monocytes (Bld) [#/Vol] 0.7 10 3/uL 0.3-0.8 [facility] Monocytes/100 WBC Auto (Bld) on 07-25-2024 Monocytes/100 WBC (Bld) 8.2 % 1.7-12.0 [facility] Neutrophils Auto (Bld) [#/Vo l]on 07-25-2024 Neutrophils (Bld) [#/Vol] 6.3 10 3/uL 1.4-6.5 [facility] Neutrophils/100 WBC Auto (Bl d)on 07-25-2024 Neutrophils/100 WBC (Bld) 72.9 % 43.0-75.0 [facility] No Panel Informationon 07-25 Eosinophils # (Auto) 0.1 10 3/uL 0.0-0.7 [facility] Immature Granulocyte # (Auto) 0.02 10 3/uL 0.00-0.03 [facility] Platelet mean volume Auto (B ld) [Entitic vol]on 07-25-2024 Platelet mean volume (Bld) [Entitic vol] 10.3 fL 9.5-13.5 [facility] Platelets Auto (Bld) [#/Vol] on 07-25-2024 Platelets (Bld) [#/Vol] 239 10 3/uL 150-450 [facility] RBC Auto (Bld) [#/Vol]on RBC (Bld) [#/Vol] 3.70 10 6/uL Low 4.20-5.40 [facility] Serum or plasma albumin/glob ulin mass ratioon 07-25-2024 Albumin/Globulin [Mass ratio] 0.5 {ratio} [facility] Serum or plasma anion gap de terminationon 07-25-2024 Anion gap [Moles/Vol] 13.9 mmol/L [facility] Basophils Auto (Bld) [#/Vol] on 07-24-2024 Basophils (Bld) [#/Vol] 0.1 10 3/uL 0.0-0.1 [facility] Basophils/100 WBC Auto (Bld) on 07-24-2024 Basophils/100 WBC (Bld) 0.7 % 0.2-2.0 [facility] Eosinophils/100 WBC Auto (Bl d)on 07-24-2024 Eosinophils/100 WBC (Bld) 1.7 % 0.9-7.0 [facility] Erythrocyte distribution wid th Auto (RBC) [Ratio]on 07-24-2024 Erythrocyte distribution width (RBC) [Ratio] 13.7 % 11.0-15.0 [facility] Estimated glomerular filtrat ion rate (GFR) non- Americanon 07-24-2024 GFR/1.73 sq M.predicted among non-blacks MDRD (S/P/Bld) [Vol rate/Area] 48 mL/min/{1.73_m2} Low >=60 [facility] Hematocrit Auto (Bld) [Volum e fraction]on 07-24-2024 Hematocrit (Bld) [Volume fraction] 34.5 % Low 36.0-48.0 [facility] Hemoglobin [Mass/volume] in Bloodon 07-24-2024 Hemoglobin (Bld) [Mass/Vol] 11.2 g/dL Low 12.0-16.0 [facility] Laboratory - Chemistry and C hemistry - challengeon 07-24-2024 Calcium [Mass/Vol] 8.9 mg/dL 8.5-10.1 [facility] Chloride [Moles/Vol] 104 mmol/L 98-107 [facility] CO2 [Moles/Vol] 26.1 mmol/L 21.0-32.0 [facility] Creatinine [Mass/Vol] 1.11 mg/dL High 0.55-1.02 [facility] GFR/1.73 sq M.predicted MDRD (S/P/Bld) [Vol rate/Area] 58 mL/min/{1.73_m2} Low >=60 [facility] Glucose [Mass/Vol] 247 mg/dL High 74-106 [facility] Natriuretic peptide B (Bld) [Mass/Vol] 6277.0 pg/mL High <=1800.0 [facility] Comment on above: RESULTS CALLED TO YOEL STEWARD RN IN ER BY Mira Martinez at 1430 Potassium [Moles/Vol] 4.1 mmol/L 3.5-5.1 [facility] Sodium [Moles/Vol] 141 mmol/L 136-145 [facility] Urea nitrogen [Mass/Vol] 28.0 mg/dL High 7.0-18.0 [facility] Urea nitrogen/Creatinine [Mass ratio] 25.2 mg/mg [facility] Laboratory - Hematology and Cell countson 07-24-2024 Immature granulocytes/100 WBC (Bld) 0.3 % 0.0-0.5 [facility] Leukocytes [#/volume] correc gali for nucleated erythrocytes in Blood by Automated counon 07-24-2024 WBC corrected for nucl RBC Auto (Bld) [#/Vol] 9.7 10 3/uL 4.0-11.0 [facility] Lymphocytes Auto (Bld) [#/Vo l]on 07-24-2024 Lymphocytes (Bld) [#/Vol] 0.9 10 3/uL Low 1.2-3.8 [facility] Lymphocytes/100 WBC Auto (Bl d)on 07-24-2024 Lymphocytes/100 WBC (Bld) 9.2 % Low 20.5-60.0 [facility] MCH Auto (RBC) [Entitic mass ]on 07-24-2024 MCH (RBC) [Entitic mass] 29.9 pg 26.7-34.0 [facility] MCHC Auto (RBC) [Mass/Vol]on 07-24-2024 MCHC (RBC) [Mass/Vol] 32.5 g/dL 29.9-35.2 [facility] MCV Auto (RBC) [Entitic vol] on 07-24-2024 MCV (RBC) [Entitic vol] 92.0 fL 81.0-99.0 [facility] Monocytes Auto (Bld) [#/Vol] on 07-24-2024 Monocytes (Bld) [#/Vol] 0.5 10 3/uL 0.3-0.8 [facility] Monocytes/100 WBC Auto (Bld) on 07-24-2024 Monocytes/100 WBC (Bld) 5.3 % 1.7-12.0 [facility] Neutrophils Auto (Bld) [#/Vo l]on 07-24-2024 Neutrophils (Bld) [#/Vol] 8.0 10 3/uL High 1.4-6.5 [facility] Neutrophils/100 WBC Auto (Bl d)on 07-24-2024 Neutrophils/100 WBC (Bld) 82.8 % High 43.0-75.0 [facility] No Panel Informationon 07-24 Eosinophils # (Auto) 0.2 10 3/uL 0.0-0.7 [facility] Immature Granulocyte # (Auto) 0.03 10 3/uL 0.00-0.03 [facility] Troponin I High Sensitivity 20.5 pg/mL 4.0-51.3 [facility] Comment on above: CUT-OFF POINTS [...] (Bld) [Entitic vol] 10.4 fL 9.5-13.5 [facility] Platelets Auto (Bld) [#/Vol] on 07-24-2024 Platelets (Bld) [#/Vol] 236 10 3/uL 150-450 [facility] RBC Auto (Bld) [#/Vol]on RBC (Bld) [#/Vol] 3.75 10 6/uL Low 4.20-5.40 [facility] Serum or plasma anion gap de terminationon 07-24-2024 Anion gap [Moles/Vol] 15.0 [facility] Urine culture routineOrdered By: Shantel Steven on 07-17-2024 Bacteria identified Cx Nom (U) Proteus mirabilis Abnormal [facility] Erythrocyte distribution wid th Auto (RBC) [Ratio]on 07-15-2024 Erythrocyte distribution width (RBC) [Ratio] 13.3 % 11.0-15.0 [facility] Estimated glomerular filtrat ion rate (GFR) non- Americanon 07-15-2024 GFR/1.73 sq M.predicted among non-blacks MDRD (S/P/Bld) [Vol rate/Area] 47 mL/min/{1.73_m2} Low >=60 [facility] Globulin Calc (S) [Mass/Vol] on 07-15-2024 Globulin (S) [Mass/Vol] 4.2 g/dL [facility] Hematocrit Auto (Bld) [Volum e fraction]on 07-15-2024 Hematocrit (Bld) [Volume fraction] 34.9 % Low 36.0-48.0 [facility] Hemoglobin [Mass/volume] in Bloodon 07-15-2024 Hemoglobin (Bld) [Mass/Vol] 11.6 g/dL Low 12.0-16.0 [facility] Laboratory - Chemistry and C hemistry - challengeon 07-15-2024 Bilirubin Ql (U) Negative NEGATIVE [facility] Glucose (U) [Mass/Vol] Negative NEGATIVE [facility] Ketones Ql (U) Negative NEGATIVE [facility] pH (U) 6.5 [pH] 5.0-9.0 [facility] Specific gravity (U) [Rel density] 1.020 1.005-1.025 [facility] Urobilinogen Qn (U) 0.2 {Meka'U}/dL 0.2-1.0 [facility] Albumin [Mass/Vol] 2.6 g/dL Low 3.4-5.0 [facility] ALP [Catalytic activity/Vol] 87 U/L 46-116 [facility] ALT [Catalytic activity/Vol] 18 U/L 14-59 [facility] AST [Catalytic activity/Vol] 14 U/L Low 15-37 [facility] Bilirubin [Mass/Vol] 0.6 mg/dL 0.2-1.0 [facility] Calcium [Mass/Vol] 8.6 mg/dL 8.5-10.1 [facility] Chloride [Moles/Vol] 101 mmol/L 98-107 [facility] CO2 [Moles/Vol] 31.4 mmol/L 21.0-32.0 [facility] Creatinine [Mass/Vol] 1.12 mg/dL High 0.55-1.02 [facility] GFR/1.73 sq M.predicted MDRD (S/P/Bld) [Vol rate/Area] 57 mL/min/{1.73_m2} Low >=60 [facility] Glucose [Mass/Vol] 153 mg/dL High 74-106 [facility] Natriuretic peptide B (Bld) [Mass/Vol] 3410.0 pg/mL High <=1800.0 [facility] Comment on above: RESULTS CALLED TO Bogdan Robin RN at 0840 Potassium [Moles/Vol] 3.6 mmol/L 3.5-5.1 [facility] Protein [Mass/Vol] 6.8 g/dL 6.4-8.2 [facility] Sodium [Moles/Vol] 141 mmol/L 136-145 [facility] Urea nitrogen [Mass/Vol] 43.0 mg/dL High 7.0-18.0 [facility] Urea nitrogen/Creatinine [Mass ratio] 38.4 mg/mg [facility] Laboratory - Specimen inform ationon 07-15-2024 Appearance (U) CLEAR CLEAR [facility] Color (U) LT. YELLOW YELLOW [facility] Laboratory - Urinalysison Leukocyte esterase Test strip Ql (U) Negative NEGATIVE [facility] Mucus Ql (Urine sed) NONE SEEN NONE SEEN [facility] Nitrite Ql (U) Negative NEGATIVE [facility] Protein Ql (U) 100 mg/dL Abnormal NEG/TRACE [facility] Leukocytes [#/volume] correc gali for nucleated erythrocytes in Blood by Automated counon 07-15-2024 WBC corrected for nucl RBC Auto (Bld) [#/Vol] 8.5 10 3/uL 4.0-11.0 [facility] MCH Auto (RBC) [Entitic mass ]on 07-15-2024 MCH (RBC) [Entitic mass] 29.9 pg 26.7-34.0 [facility] MCHC Auto (RBC) [Mass/Vol]on 07-15-2024 MCHC (RBC) [Mass/Vol] 33.2 g/dL 29.9-35.2 [facility] MCV Auto (RBC) [Entitic vol] on 07-15-2024 MCV (RBC) [Entitic vol] 89.9 fL 81.0-99.0 [facility] No Panel Informationon 07-15 Urine Bacteria NONE SEEN #/HPF NONE SEEN [facility] Urine Occult Blood TRACE-I NEGATIVE [facility] Urine RBC 0-2 #/HPF 0-2 [facility] Urine Squamous Epithelial Cells FEW #/LPF Abnormal NONE/RARE [facility] Urine WBC NONE SEEN #/HPF NONE SEEN [facility] NONE SEEN #/HPF NONE SEEN [facility] Negative NEGATIVE [facility] TRACE-I NEGATIVE [facility] CLEAR CLEAR [facility] LT. YELLOW YELLOW [facility] NONE SEEN NONE SEEN [facility] 6.5 5.0-9.0 [facility] 100 mg/dL Abnormal NEG/TRACE [facility] 0-2 #/HPF 0-2 [facility] 1.020 1.005-1.025 [facility] FEW #/LPF Abnormal NONE/RARE [facility] 0.2 EU/dL 0.2-1.0 [facility] Troponin I High Sensitivity 21.3 pg/mL 4.0-51.3 [facility] Comment on above: CUT-OFF POINTS [...] CLINICAL INFORMATION. 3410.0 pg/mL High <=1800.0 [facility] 21.3 pg/mL 4.0-51.3 [facility] 2.6 g/dL Low 3.4-5.0 [facility] 87 U/L 46-116 [facility] 18 U/L 14-59 [facility] 14 U/L Low 15-37 [facility] 38.4 [facility] 43.0 mg/dL High 7.0-18.0 [facility] 8.6 mg/dL 8.5-10.1 [facility] 101 mmol/L 98-107 [facility] 31.4 mmol/L 21.0-32.0 [facility] 1.12 mg/dL High 0.55-1.02 [facility] 57 Low >=60 [facility] 153 mg/dL High 74-106 [facility] 3.6 mmol/L 3.5-5.1 [facility] 141 mmol/L 136-145 [facility] 0.6 mg/dL 0.2-1.0 [facility] 6.8 g/dL 6.4-8.2 [facility] Platelet mean volume Auto (B ld) [Entitic vol]on 07-15-2024 Platelet mean volume (Bld) [Entitic vol] 11.0 fL 9.5-13.5 [facility] Platelets Auto (Bld) [#/Vol] on 07-15-2024 Platelets (Bld) [#/Vol] 177 10 3/uL 150-450 [facility] RBC Auto (Bld) [#/Vol]on RBC (Bld) [#/Vol] 3.88 10 6/uL Low 4.20-5.40 [facility] Serum or plasma albumin/glob ulin mass ratioon 07-15-2024 Albumin/Globulin [Mass ratio] 0.6 {ratio} [facility] Serum or plasma anion gap de terminationon 07-15-2024 Anion gap [Moles/Vol] 12.2 mmol/L [facility] Basophils Auto (Bld) [#/Vol] on 07-14-2024 Basophils (Bld) [#/Vol] 0.1 10 3/uL 0.0-0.1 [facility] Basophils/100 WBC Auto (Bld) on 07-14-2024 Basophils/100 WBC (Bld) 0.9 % 0.2-2.0 [facility] Eosinophils/100 WBC Auto (Bl d)on 07-14-2024 Eosinophils/100 WBC (Bld) 1.3 % 0.9-7.0 [facility] Erythrocyte distribution wid th Auto (RBC) [Ratio]on 07-14-2024 Erythrocyte distribution width (RBC) [Ratio] 13.5 % 11.0-15.0 [facility] Estimated glomerular filtrat ion rate (GFR) non- Americanon 07-14-2024 GFR/1.73 sq M.predicted among non-blacks MDRD (S/P/Bld) [Vol rate/Area] 30 mL/min/{1.73_m2} Low >=60 [facility] Hematocrit Auto (Bld) [Volum e fraction]on 07-14-2024 Hematocrit (Bld) [Volume fraction] 38.5 % 36.0-48.0 [facility] Hemoglobin [Mass/volume] in Bloodon 07-14-2024 Hemoglobin (Bld) [Mass/Vol] 12.8 g/dL 12.0-16.0 [facility] Laboratory - Chemistry and C hemistry - challengeon 07-14-2024 Calcium [Mass/Vol] 9.0 mg/dL 8.5-10.1 [facility] Chloride [Moles/Vol] 96 mmol/L Low 98-107 [facility] CO2 [Moles/Vol] 35.5 mmol/L High 21.0-32.0 [facility] Creatinine [Mass/Vol] 1.65 mg/dL High 0.55-1.02 [facility] GFR/1.73 sq M.predicted MDRD (S/P/Bld) [Vol rate/Area] 36 mL/min/{1.73_m2} Low >=60 [facility] Glucose [Mass/Vol] 458 mg/dL High 74-106 [facility] Potassium [Moles/Vol] 4.0 mmol/L 3.5-5.1 [facility] Sodium [Moles/Vol] 135 mmol/L Low 136-145 [facility] Urea nitrogen [Mass/Vol] 52.0 mg/dL High 7.0-18.0 [facility] Urea nitrogen/Creatinine [Mass ratio] 31.5 mg/mg [facility] Laboratory - Hematology and Cell countson 07-14-2024 Immature granulocytes/100 WBC (Bld) 0.1 % 0.0-0.5 [facility] Leukocytes [#/volume] correc gali for nucleated erythrocytes in Blood by Automated counon 07-14-2024 WBC corrected for nucl RBC Auto (Bld) [#/Vol] 8.2 10 3/uL 4.0-11.0 [facility] Lymphocytes Auto (Bld) [#/Vo l]on 07-14-2024 Lymphocytes (Bld) [#/Vol] 1.1 10 3/uL Low 1.2-3.8 [facility] Lymphocytes/100 WBC Auto (Bl d)on 07-14-2024 Lymphocytes/100 WBC (Bld) 13.7 % Low 20.5-60.0 [facility] MCH Auto (RBC) [Entitic mass ]on 07-14-2024 MCH (RBC) [Entitic mass] 30.0 pg 26.7-34.0 [facility] MCHC Auto (RBC) [Mass/Vol]on 07-14-2024 MCHC (RBC) [Mass/Vol] 33.2 g/dL 29.9-35.2 [facility] MCV Auto (RBC) [Entitic vol] on 07-14-2024 MCV (RBC) [Entitic vol] 90.2 fL 81.0-99.0 [facility] Monocytes Auto (Bld) [#/Vol] on 07-14-2024 Monocytes (Bld) [#/Vol] 0.5 10 3/uL 0.3-0.8 [facility] Monocytes/100 WBC Auto (Bld) on 07-14-2024 Monocytes/100 WBC (Bld) 6.6 % 1.7-12.0 [facility] Neutrophils Auto (Bld) [#/Vo l]on 07-14-2024 Neutrophils (Bld) [#/Vol] 6.3 10 3/uL 1.4-6.5 [facility] Neutrophils/100 WBC Auto (Bl d)on 07-14-2024 Neutrophils/100 WBC (Bld) 77.4 % High 43.0-75.0 [facility] No Panel Informationon 07-14 Eosinophils # (Auto) 0.1 10 3/uL 0.0-0.7 [facility] Immature Granulocyte # (Auto) 0.01 10 3/uL 0.00-0.03 [facility] Troponin I High Sensitivity 17.9 pg/mL 4.0-51.3 [facility] Comment on above: CUT-OFF POINTS [...] AND CLINICAL INFORMATION. 17.9 pg/mL 4.0-51.3 [facility] 31.5 [facility] 0.1 10 3/uL 0.0-0.7 [facility] 52.0 mg/dL High 7.0-18.0 [facility] 9.0 mg/dL 8.5-10.1 [facility] 96 mmol/L Low 98-107 [facility] 35.5 mmol/L High 21.0-32.0 [facility] 0.01 10 3/uL 0.00-0.03 [facility] 1.65 mg/dL High 0.55-1.02 [facility] 0.1 % 0.0-0.5 [facility] 36 Low >=60 [facility] 458 mg/dL High 74-106 [facility] 4.0 mmol/L 3.5-5.1 [facility] 135 mmol/L Low 136-145 [facility] Platelet mean volume Auto (B ld) [Entitic vol]on 07-14-2024 Platelet mean volume (Bld) [Entitic vol] 11.0 fL 9.5-13.5 [facility] Platelets Auto (Bld) [#/Vol] on 07-14-2024 Platelets (Bld) [#/Vol] 182 10 3/uL 150-450 [facility] RBC Auto (Bld) [#/Vol]on RBC (Bld) [#/Vol] 4.27 10 6/uL 4.20-5.40 [facility] Serum or plasma anion gap de terminationon 07-14-2024 Anion gap [Moles/Vol] 7.5 mmol/L [facility] Estimated glomerular filtrat ion rate (GFR) non- Americanon 06-24-2024 GFR/1.73 sq M.predicted among non-blacks MDRD (S/P/Bld) [Vol rate/Area] 38 mL/min/{1.73_m2} Low >=60 [facility] Laboratory - Chemistry and C hemistry - challengeon 06-24-2024 Calcium [Mass/Vol] 8.4 mg/dL Low 8.5-10.1 [facility] Chloride [Moles/Vol] 100 mmol/L 98-107 [facility] CO2 [Moles/Vol] 31.1 mmol/L 21.0-32.0 [facility] Creatinine [Mass/Vol] 1.34 mg/dL High 0.55-1.02 [facility] GFR/1.73 sq M.predicted MDRD (S/P/Bld) [Vol rate/Area] 46 mL/min/{1.73_m2} Low >=60 [facility] Glucose [Mass/Vol] 222 mg/dL High 74-106 [facility] Potassium [Moles/Vol] 3.6 mmol/L 3.5-5.1 [facility] Sodium [Moles/Vol] 138 mmol/L 136-145 [facility] Urea nitrogen [Mass/Vol] 32.0 mg/dL High 7.0-18.0 [facility] Urea nitrogen/Creatinine [Mass ratio] 23.9 mg/mg [facility] No Panel Informationon 06-24 23.9 [facility] 32.0 mg/dL High 7.0-18.0 [facility] 8.4 mg/dL Low 8.5-10.1 [facility] 100 mmol/L 98-107 [facility] 31.1 mmol/L 21.0-32.0 [facility] 1.34 mg/dL High 0.55-1.02 [facility] 46 Low >=60 [facility] 222 mg/dL High 74-106 [facility] 3.6 mmol/L 3.5-5.1 [facility] 138 mmol/L 136-145 [facility] Serum or plasma anion gap de terminationon 06-24-2024 Anion gap [Moles/Vol] 10.5 mmol/L [facility] Basophils Auto (Bld) [#/Vol] on 06-10-2024 Basophils (Bld) [#/Vol] 0.1 10 3/uL 0.0-0.1 [facility] Basophils/100 WBC Auto (Bld) on 06-10-2024 Basophils/100 WBC (Bld) 1.0 % 0.2-2.0 [facility] Eosinophils/100 WBC Auto (Bl d)on 06-10-2024 Eosinophils/100 WBC (Bld) 1.3 % 0.9-7.0 [facility] Erythrocyte distribution wid th Auto (RBC) [Ratio]on 06-10-2024 Erythrocyte distribution width (RBC) [Ratio] 14.6 % 11.0-15.0 [facility] Estimated glomerular filtrat ion rate (GFR) non- Americanon 06-10-2024 GFR/1.73 sq M.predicted among non-blacks MDRD (S/P/Bld) [Vol rate/Area] 54 mL/min/{1.73_m2} Low >=60 [facility] Globulin Calc (S) [Mass/Vol] on 06-10-2024 Globulin (S) [Mass/Vol] 4.5 g/dL [facility] Hematocrit Auto (Bld) [Volum e fraction]on 06-10-2024 Hematocrit (Bld) [Volume fraction] 36.8 % 36.0-48.0 [facility] Hemoglobin [Mass/volume] in Bloodon 06-10-2024 Hemoglobin (Bld) [Mass/Vol] 12.1 g/dL 12.0-16.0 [facility] Laboratory - Chemistry and C hemistry - challengeon 06-10-2024 Albumin [Mass/Vol] 2.4 g/dL Low 3.4-5.0 [facility] ALP [Catalytic activity/Vol] 94 U/L 46-116 [facility] ALT [Catalytic activity/Vol] 13 U/L Low 14-59 [facility] AST [Catalytic activity/Vol] 13 U/L Low 15-37 [facility] Bilirubin [Mass/Vol] 0.9 mg/dL 0.2-1.0 [facility] Calcium [Mass/Vol] 8.9 mg/dL 8.5-10.1 [facility] Chloride [Moles/Vol] 101 mmol/L 98-107 [facility] CO2 [Moles/Vol] 29.4 mmol/L 21.0-32.0 [facility] Creatinine [Mass/Vol] 1.00 mg/dL 0.55-1.02 [facility] GFR/1.73 sq M.predicted MDRD (S/P/Bld) [Vol rate/Area] mL/min/{1.73_m2} >=60 [facility] Glucose [Mass/Vol] 167 mg/dL High 74-106 [facility] Potassium [Moles/Vol] 3.4 mmol/L Low 3.5-5.1 [facility] Protein [Mass/Vol] 6.9 g/dL 6.4-8.2 [facility] [facility] S[facility] [Moles/Vol] 136 mmol/L 136-145 [facility] Urea nitrogen [Mass/Vol] 24.0 mg/dL High 7.0-18.0 [facility] Urea nitrogen/Creatinine [Mass ratio] 24.0 mg/mg [facility] Laboratory - Hematology and Cell countson 06-10-2024 Immature granulocytes/100 WBC (Bld) 0.3 % 0.0-0.5 [facility] Leukocytes [#/volume] correc gali for nucleated erythrocytes in Blood by Automated counon 06-10-2024 WBC corrected for nucl RBC Auto (Bld) [#/Vol] 7.9 10 3/uL 4.0-11.0 [facility] Lymphocytes Auto (Bld) [#/Vo l]on 06-10-2024 Lymphocytes (Bld) [#/Vol] 1.3 10 3/uL 1.2-3.8 [facility] Lymphocytes/100 WBC Auto (Bl d)on 06-10-2024 Lymphocytes/100 WBC (Bld) 16.8 % Low 20.5-60.0 [facility] MCH Auto (RBC) [Entitic mass ]on 06-10-2024 MCH (RBC) [Entitic mass] 29.8 pg 26.7-34.0 [facility] MCHC Auto (RBC) [Mass/Vol]on 06-10-2024 MCHC (RBC) [Mass/Vol] 32.9 g/dL 29.9-35.2 [facility] MCV Auto (RBC) [Entitic vol] on 06-10-2024 MCV (RBC) [Entitic vol] 90.6 fL 81.0-99.0 [facility] Monocytes Auto (Bld) [#/Vol] on 06-10-2024 Monocytes (Bld) [#/Vol] 0.8 10 3/uL 0.3-0.8 [facility] Monocytes/100 WBC Auto (Bld) on 06-10-2024 Monocytes/100 WBC (Bld) 9.8 % 1.7-12.0 [facility] Neutrophils Auto (Bld) [#/Vo l]on 06-10-2024 Neutrophils (Bld) [#/Vol] 5.6 10 3/uL 1.4-6.5 [facility] Neutrophils/100 WBC Auto (Bl d)on 06-10-2024 Neutrophils/100 WBC (Bld) 70.8 % 43.0-75.0 [facility] No Panel Informationon 06-10 Eosinophils # (Auto) 0.1 10 3/uL 0.0-0.7 [facility] Immature Granulocyte # (Auto) 0.02 10 3/uL 0.00-0.03 [facility] 2.4 g/dL Low 3.4-5.0 [facility] 0.1 10 3/uL 0.0-0.7 [facility] 94 U/L 46-116 [facility] 13 U/L Low 15-37 [facility] 24.0 [facility] 0.02 10 3/uL 0.00-0.03 [facility] 24.0 mg/dL High 7.0-18.0 [facility] 0.3 % 0.0-0.5 [facility] 8.9 mg/dL 8.5-10.1 [facility] 101 mmol/L 98-107 [facility] 29.4 mmol/L 21.0-32.0 [facility] 1.00 mg/dL 0.55-1.02 [facility] >60 >=60 [facility] 167 mg/dL High 74-106 [facility] 3.4 mmol/L Low 3.5-5.1 [facility] 136 mmol/L 136-145 [facility] 0.9 mg/dL 0.2-1.0 [facility] 6.9 g/dL 6.4-8.2 [facility] Platelet mean volume Auto (B ld) [Entitic vol]on 06-10-2024 Platelet mean volume (Bld) [Entitic vol] 11.2 fL 9.5-13.5 [facility] Platelets Auto (Bld) [#/Vol] on 06-10-2024 Platelets (Bld) [#/Vol] 189 10 3/uL 150-450 [facility] RBC Auto (Bld) [#/Vol]on RBC (Bld) [#/Vol] 4.06 10 6/uL Low 4.20-5.40 [facility] Serum or plasma albumin/glob ulin mass ratioon 06-10-2024 Albumin/Globulin [Mass ratio] 0.5 {ratio} [facility] Serum or plasma anion gap de terminationon 06-10-2024 Anion gap [Moles/Vol] 9.0 mmol/L [facility] Basophils Auto (Bld) [#/Vol] on 06-09-2024 Basophils (Bld) [#/Vol] 0.1 10 3/uL 0.0-0.1 [facility] Basophils/100 WBC Auto (Bld) on 06-09-2024 Basophils/100 WBC (Bld) 1.0 % 0.2-2.0 [facility] Eosinophils/100 WBC Auto (Bl d)on 06-09-2024 Eosinophils/100 WBC (Bld) 1.5 % 0.9-7.0 [facility] Erythrocyte distribution wid th Auto (RBC) [Ratio]on 06-09-2024 Erythrocyte distribution width (RBC) [Ratio] 14.8 % 11.0-15.0 [facility] Estimated glomerular filtrat ion rate (GFR) non- Americanon 06-09-2024 GFR/1.73 sq M.predicted among non-blacks MDRD (S/P/Bld) [Vol rate/Area] mL/min/{1.73_m2} >=60 [facility] Fibrin D-dimer [Presence] in Platelet poor plasma by Latex agglutinationon 06-09-2024 Fibrin D-dimer LA Ql (PPP) 0.39 mg/L FEU <=0.59 [facility] Comment on above: Increases in D-Dimer [...] 06-09-2024 Globulin (S) [Mass/Vol] 4.8 g/dL [facility] Hematocrit Auto (Bld) [Volum e fraction]on 06-09-2024 Hematocrit (Bld) [Volume fraction] 37.7 % 36.0-48.0 [facility] Hemoglobin [Mass/volume] in Bloodon 06-09-2024 Hemoglobin (Bld) [Mass/Vol] 12.5 g/dL 12.0-16.0 [facility] Laboratory - Chemistry and C hemistry - challengeon 06-09-2024 Albumin [Mass/Vol] 2.5 g/dL Low 3.4-5.0 [facility] ALP [Catalytic activity/Vol] 86 U/L 46-116 [facility] ALT [Catalytic activity/Vol] 18 U/L 14-59 [facility] AST [Catalytic activity/Vol] 34 U/L 15-37 [facility] Bilirubin [Mass/Vol] 0.8 mg/dL 0.2-1.0 [facility] Calcium [Mass/Vol] 8.6 mg/dL 8.5-10.1 [facility] Chloride [Moles/Vol] 103 mmol/L 98-107 [facility] CO2 [Moles/Vol] 27.1 mmol/L 21.0-32.0 [facility] Creatinine [Mass/Vol] 0.88 mg/dL 0.55-1.02 [facility] GFR/1.73 sq M.predicted MDRD (S/P/Bld) [Vol rate/Area] mL/min/{1.73_m2} >=60 [facility] Glucose [Mass/Vol] 142 mg/dL High 74-106 [facility] Lipase [Catalytic activity/Vol] 45.0 U/L 16.0-77.0 [facility] Natriuretic peptide B (Bld) [Mass/Vol] 3488.0 pg/mL High <=1800.0 [facility] Comment on above: RESULTS CALLED TO MAIDA MCGOWAN RN @BY Alla Kevin [phone] Potassium [Moles/Vol] 5.0 mmol/L 3.5-5.1 [facility] Protein [Mass/Vol] 7.3 g/dL 6.4-8.2 [facility] Sodium [Moles/Vol] 135 mmol/L Low 136-145 [facility] Urea nitrogen [Mass/Vol] 28.0 mg/dL High 7.0-18.0 [facility] Urea nitrogen/Creatinine [Mass ratio] 31.8 mg/mg [facility] Laboratory - Hematology and Cell countson 06-09-2024 Immature granulocytes/100 WBC (Bld) 0.3 % 0.0-0.5 [facility] Laboratory - Microbiology an d Antimicrobial susceptibilityon 06-09-2024 SARS-CoV-2 (COVID-19) RNA FERN+probe Ql (Unsp spec) Negative NEGATIVE [facility] Comment on above: This test has [...] (Bld) [#/Vol] 8.9 10 3/uL 4.0-11.0 [facility] Lymphocytes Auto (Bld) [#/Vo l]on 06-09-2024 Lymphocytes (Bld) [#/Vol] 1.3 10 3/uL 1.2-3.8 [facility] Lymphocytes/100 WBC Auto (Bl d)on 06-09-2024 Lymphocytes/100 WBC (Bld) 15.1 % Low 20.5-60.0 [facility] MCH Auto (RBC) [Entitic mass ]on 06-09-2024 MCH (RBC) [Entitic mass] 30.3 pg 26.7-34.0 [facility] MCHC Auto (RBC) [Mass/Vol]on 06-09-2024 MCHC (RBC) [Mass/Vol] 33.2 g/dL 29.9-35.2 [facility] MCV Auto (RBC) [Entitic vol] on 06-09-2024 MCV (RBC) [Entitic vol] 91.5 fL 81.0-99.0 [facility] Monocytes Auto (Bld) [#/Vol] on 06-09-2024 Monocytes (Bld) [#/Vol] 0.7 10 3/uL 0.3-0.8 [facility] Monocytes/100 WBC Auto (Bld) on 06-09-2024 Monocytes/100 WBC (Bld) 7.9 % 1.7-12.0 [facility] Neutrophils Auto (Bld) [#/Vo l]on 06-09-2024 Neutrophils (Bld) [#/Vol] 6.6 10 3/uL High 1.4-6.5 [facility] Neutrophils/100 WBC Auto (Bl d)on 06-09-2024 Neutrophils/100 WBC (Bld) 74.2 % 43.0-75.0 [facility] No Panel Informationon 06-09 Negative NEGATIVE [facility] Eosinophils # (Auto) 0.1 10 3/uL 0.0-0.7 [facility] Immature Granulocyte # (Auto) 0.03 10 3/uL 0.00-0.03 [facility] Troponin I High Sensitivity 17.0 pg/mL 4.0-51.3 [facility] Comment on above: CUT-OFF POINTS [...] CLINICAL INFORMATION. 3488.0 pg/mL High <=1800.0 [facility] 45.0 U/L 16.0-77.0 [facility] 17.0 pg/mL 4.0-51.3 [facility] 2.5 g/dL Low 3.4-5.0 [facility] 0.1 10 3/uL 0.0-0.7 [facility] 86 U/L 46-116 [facility] 18 U/L 14-59 [facility] 34 U/L 15-37 [facility] 31.8 [facility] 0.03 10 3/uL 0.00-0.03 [facility] 28.0 mg/dL High 7.0-18.0 [facility] 0.3 % 0.0-0.5 [facility] 8.6 mg/dL 8.5-10.1 [facility] 103 mmol/L 98-107 [facility] 27.1 mmol/L 21.0-32.0 [facility] 0.88 mg/dL 0.55-1.02 [facility] >60 >=60 [facility] 142 mg/dL High 74-106 [facility] 5.0 mmol/L 3.5-5.1 [facility] 135 mmol/L Low 136-145 [facility] 0.8 mg/dL 0.2-1.0 [facility] 7.3 g/dL 6.4-8.2 [facility] Platelet mean volume Auto (B ld) [Entitic vol]on 06-09-2024 Platelet mean volume (Bld) [Entitic vol] 12.4 fL 9.5-13.5 [facility] Platelets Auto (Bld) [#/Vol] on 06-09-2024 Platelets (Bld) [#/Vol] 205 10 3/uL 150-450 [facility] RBC Auto (Bld) [#/Vol]on RBC (Bld) [#/Vol] 4.12 10 6/uL Low 4.20-5.40 [facility] Serum or plasma albumin/glob ulin mass ratioon 06-09-2024 Albumin/Globulin [Mass ratio] 0.5 {ratio} [facility] Serum or plasma anion gap de terminationon 06-09-2024 Anion gap [Moles/Vol] 9.9 mmol/L [facility] Basophils Auto (Bld) [#/Vol] on 06-01-2024 Basophils (Bld) [#/Vol] 0.1 10 3/uL 0.0-0.1 [facility] Basophils/100 WBC Auto (Bld) on 06-01-2024 Basophils/100 WBC (Bld) 0.9 % 0.2-2.0 [facility] Eosinophils/100 WBC Auto (Bl d)on 06-01-2024 Eosinophils/100 WBC (Bld) 1.2 % 0.9-7.0 [facility] Erythrocyte distribution wid th Auto (RBC) [Ratio]on 06-01-2024 Erythrocyte distribution width (RBC) [Ratio] 14.1 % 11.0-15.0 [facility] Estimated glomerular filtrat ion rate (GFR) non- Americanon 06-01-2024 GFR/1.73 sq M.predicted among non-blacks MDRD (S/P/Bld) [Vol rate/Area] 47 mL/min/{1.73_m2} Low >=60 [facility] Globulin Calc (S) [Mass/Vol] on 06-01-2024 Globulin (S) [Mass/Vol] 4.4 g/dL [facility] Hematocrit Auto (Bld) [Volum e fraction]on 06-01-2024 Hematocrit (Bld) [Volume fraction] 37.6 % 36.0-48.0 [facility] Hemoglobin [Mass/volume] in Bloodon 06-01-2024 Hemoglobin (Bld) [Mass/Vol] 12.5 g/dL 12.0-16.0 [facility] Laboratory - Chemistry and C hemistry - challengeon 06-01-2024 Albumin [Mass/Vol] 2.7 g/dL Low 3.4-5.0 [facility] ALP [Catalytic activity/Vol] 87 U/L 46-116 [facility] ALT [Catalytic activity/Vol] 18 U/L 14-59 [facility] AST [Catalytic activity/Vol] 16 U/L 15-37 [facility] Bilirubin [Mass/Vol] 0.5 mg/dL 0.2-1.0 [facility] Calcium [Mass/Vol] 8.7 mg/dL 8.5-10.1 [facility] Chloride [Moles/Vol] 101 mmol/L 98-107 [facility] CO2 [Moles/Vol] 28.9 mmol/L 21.0-32.0 [facility] Creatinine [Mass/Vol] 1.12 mg/dL High 0.55-1.02 [facility] GFR/1.73 sq M.predicted MDRD (S/P/Bld) [Vol rate/Area] 57 mL/min/{1.73_m2} Low >=60 [facility] Glucose [Mass/Vol] 232 mg/dL High 74-106 [facility] Potassium [Moles/Vol] 4.1 mmol/L 3.5-5.1 [facility] Protein [Mass/Vol] 7.1 g/dL 6.4-8.2 [facility] Sodium [Moles/Vol] 137 mmol/L 136-145 [facility] Urea nitrogen [Mass/Vol] 23.0 mg/dL High 7.0-18.0 [facility] Urea nitrogen/Creatinine [Mass ratio] 20.5 mg/mg [facility] Laboratory - Hematology and Cell countson 06-01-2024 Immature granulocytes/100 WBC (Bld) 0.2 % 0.0-0.5 [facility] Leukocytes [#/volume] correc gali for nucleated erythrocytes in Blood by Automated counon 06-01-2024 WBC corrected for nucl RBC Auto (Bld) [#/Vol] 9.0 10 3/uL 4.0-11.0 [facility] Lymphocytes Auto (Bld) [#/Vo l]on 06-01-2024 Lymphocytes (Bld) [#/Vol] 1.4 10 3/uL 1.2-3.8 [facility] Lymphocytes/100 WBC Auto (Bl d)on 06-01-2024 Lymphocytes/100 WBC (Bld) 15.9 % Low 20.5-60.0 [facility] MCH Auto (RBC) [Entitic mass ]on 06-01-2024 MCH (RBC) [Entitic mass] 29.5 pg 26.7-34.0 [facility] MCHC Auto (RBC) [Mass/Vol]on 06-01-2024 MCHC (RBC) [Mass/Vol] 33.2 g/dL 29.9-35.2 [facility] MCV Auto (RBC) [Entitic vol] on 06-01-2024 MCV (RBC) [Entitic vol] 88.7 fL 81.0-99.0 [facility] Monocytes Auto (Bld) [#/Vol] on 06-01-2024 Monocytes (Bld) [#/Vol] 0.8 10 3/uL 0.3-0.8 [facility] Monocytes/100 WBC Auto (Bld) on 06-01-2024 Monocytes/100 WBC (Bld) 8.5 % 1.7-12.0 [facility] Neutrophils Auto (Bld) [#/Vo l]on 06-01-2024 Neutrophils (Bld) [#/Vol] 6.6 10 3/uL High 1.4-6.5 [facility] Neutrophils/100 WBC Auto (Bl d)on 06-01-2024 Neutrophils/100 WBC (Bld) 73.3 % 43.0-75.0 [facility] No Panel Informationon 06-01 Eosinophils # (Auto) 0.1 10 3/uL 0.0-0.7 [facility] Immature Granulocyte # (Auto) 0.02 10 3/uL 0.00-0.03 [facility] 2.7 g/dL Low 3.4-5.0 [facility] 0.1 10 3/uL 0.0-0.7 [facility] 87 U/L 46-116 [facility] 18 U/L 14-59 [facility] 16 U/L 15-37 [facility] 20.5 [facility] 0.02 10 3/uL 0.00-0.03 [facility] 23.0 mg/dL High 7.0-18.0 [facility] 0.2 % 0.0-0.5 [facility] 8.7 mg/dL 8.5-10.1 [facility] 101 mmol/L 98-107 [facility] 28.9 mmol/L 21.0-32.0 [facility] 1.12 mg/dL High 0.55-1.02 [facility] 57 Low >=60 [facility] 232 mg/dL High 74-106 [facility] 4.1 mmol/L 3.5-5.1 [facility] 137 mmol/L 136-145 [facility] 0.5 mg/dL 0.2-1.0 [facility] 7.1 g/dL 6.4-8.2 [facility] Platelet mean volume Auto (B ld) [Entitic vol]on 06-01-2024 Platelet mean volume (Bld) [Entitic vol] 11.1 fL 9.5-13.5 [facility] Platelets Auto (Bld) [#/Vol] on 06-01-2024 Platelets (Bld) [#/Vol] 162 10 3/uL 150-450 [facility] RBC Auto (Bld) [#/Vol]on RBC (Bld) [#/Vol] 4.24 10 6/uL 4.20-5.40 [facility] Serum or plasma albumin/glob ulin mass ratioon 06-01-2024 Albumin/Globulin [Mass ratio] 0.6 {ratio} [facility] Serum or plasma anion gap de terminationon 06-01-2024 Anion gap [Moles/Vol] [facility]2 [facility] Bas[facility] Auto (Bld) [#/Vol] on 05-26-2024 Basophils (Bld) [#/Vol] 0.1 10 3/uL 0.0-0.1 [facility] Basophils/100 WBC Auto (Bld) on 05-26-2024 Basophils/100 WBC (Bld) 1.1 % 0.2-2.0 [facility] Eosinophils/100 WBC Auto (Bl d)on 05-26-2024 Eosinophils/100 WBC (Bld) 2.1 % 0.9-7.0 [facility] Erythrocyte distribution wid th Auto (RBC) [Ratio]on 05-26-2024 Erythrocyte distribution width (RBC) [Ratio] 14.0 % 11.0-15.0 [facility] Estimated glomerular filtrat ion rate (GFR) non- Americanon 05-26-2024 GFR/1.73 sq M.predicted among non-blacks MDRD (S/P/Bld) [Vol rate/Area] 40 mL/min/{1.73_m2} Low >=60 [facility] Globulin Calc (S) [Mass/Vol] on 05-26-2024 Globulin (S) [Mass/Vol] 4.4 g/dL [facility] Hematocrit Auto (Bld) [Volum e fraction]on 05-26-2024 Hematocrit (Bld) [Volume fraction] 35.9 % Low 36.0-48.0 [facility] Hemoglobin [Mass/volume] in Bloodon 05-26-2024 Hemoglobin (Bld) [Mass/Vol] 12.0 g/dL 12.0-16.0 [facility] Laboratory - Chemistry and C hemistry - challengeon 05-26-2024 Albumin [Mass/Vol] 2.7 g/dL Low 3.4-5.0 [facility] ALP [Catalytic activity/Vol] 88 U/L 46-116 [facility] ALT [Catalytic activity/Vol] 20 U/L 14-59 [facility] AST [Catalytic activity/Vol] 12 U/L Low 15-37 [facility] Bilirubin [Mass/Vol] 0.5 mg/dL 0.2-1.0 [facility] Calcium [Mass/Vol] 8.9 mg/dL 8.5-10.1 [facility] Chloride [Moles/Vol] 104 mmol/L 98-107 [facility] CO2 [Moles/Vol] 26.7 mmol/L 21.0-32.0 [facility] Creatinine [Mass/Vol] 1.29 mg/dL High 0.55-1.02 [facility] Free T4 [Mass/Vol] 1.19 ng/dL 0.76-1.46 [facility] GFR/1.73 sq M.predicted MDRD (S/P/Bld) [Vol rate/Area] 49 mL/min/{1.73_m2} Low >=60 [facility] Glucose [Mass/Vol] 233 mg/dL High 74-106 [facility] Natriuretic peptide B (Bld) [Mass/Vol] 2687.0 pg/mL High <=1800.0 [facility] Comment on above: RESULTS CALLED TO DR Miranda ALVAREZ IN ER BY Mira Edwards [phone] Potassium [Moles/Vol] 4.0 mmol/L 3.5-5.1 [facility] Protein [Mass/Vol] 7.1 g/dL 6.4-8.2 [facility] Sodium [Moles/Vol] 140 mmol/L 136-145 [facility] TSH Qn 4.487 m[IU]/L High 0.358-3.740 [facility] Urea nitrogen [Mass/Vol] 33.0 mg/dL High 7.0-18.0 [facility] Urea nitrogen/Creatinine [Mass ratio] 25.6 mg/mg [facility] Laboratory - Hematology and Cell countson 05-26-2024 Immature granulocytes/100 WBC (Bld) 0.1 % 0.0-0.5 [facility] Laboratory - Microbiology an d Antimicrobial susceptibilityon 05-26-2024 S. pyogenes Ag Ql (Unsp spec) Negative [facility] SARS-CoV-2 (COVID-19) RNA FERN+probe Ql (Unsp spec) Not detected NOT DETECTE [facility] Comment on above: THIS TEST IS NOT PEREZ ROVDED BY THE FDA. It has beenauthorized for use under an Emergency Use Authorization. SARS-CoV-2 (COVID-19) RNA FERN+probe Ql (Unsp spec) See comment NOT DETECTE [facility] Comment on above: COVID AG PERFORMED-- - 06/06/24 1120 ---SARS-CoV-2 FERN previously reported as: NOT DETECTEDTHIS TEST IS NOT APPROVDED BY THE FDA. It has beenauthorized for use under an Emergency Use Authorization. SARS-CoV-2 (COVID-19) RNA FERN+probe Ql (Unsp spec) Negative NEGATIVE [facility] Comment on above: This test has [...] (Bld) [#/Vol] 7.3 10 3/uL 4.0-11.0 [facility] Lymphocytes Auto (Bld) [#/Vo l]on 05-26-2024 Lymphocytes (Bld) [#/Vol] 1.3 10 3/uL 1.2-3.8 [facility] Lymphocytes/100 WBC Auto (Bl d)on 05-26-2024 Lymphocytes/100 WBC (Bld) 18.4 % Low 20.5-60.0 [facility] MCH Auto (RBC) [Entitic mass ]on 05-26-2024 MCH (RBC) [Entitic mass] 30.4 pg 26.7-34.0 [facility] MCHC Auto (RBC) [Mass/Vol]on 05-26-2024 MCHC (RBC) [Mass/Vol] 33.4 g/dL 29.9-35.2 [facility] MCV Auto (RBC) [Entitic vol] on 05-26-2024 MCV (RBC) [Entitic vol] 90.9 fL 81.0-99.0 [facility] Monocytes Auto (Bld) [#/Vol] on 05-26-2024 Monocytes (Bld) [#/Vol] 0.7 10 3/uL 0.3-0.8 [facility] Monocytes/100 WBC Auto (Bld) on 05-26-2024 Monocytes/100 WBC (Bld) 9.5 % 1.7-12.0 [facility] Neutrophils Auto (Bld) [#/Vo l]on 05-26-2024 Neutrophils (Bld) [#/Vol] 5.0 10 3/uL 1.4-6.5 [facility] Neutrophils/100 WBC Auto (Bl d)on 05-26-2024 Neutrophils/100 WBC (Bld) 68.8 % 43.0-75.0 [facility] No Panel Informationon 05-26 See comment NOT DETECTE [facility] Negative [facility] Eosinophils # (Auto) 0.2 10 3/uL 0.0-0.7 [facility] Immature Granulocyte # (Auto) 0.01 10 3/uL 0.00-0.03 [facility] Monoscreen Negative NEGATIVE [facility] Troponin I High Sensitivity 14.9 pg/mL 4.0-51.3 [facility] Comment on above: CUT-OFF POINTS [...] AND CLINICAL INFORMATION. 1.19 ng/dL 0.76-1.46 [facility] 2687.0 pg/mL High <=1800.0 [facility] 14.9 pg/mL 4.0-51.3 [facility] 4.487 u[iU]/mL High 0.358-3.740 [facility] Negative NEGATIVE [facility] 2.7 g/dL Low 3.4-5.0 [facility] 0.2 10 3/uL 0.0-0.7 [facility] 88 U/L 46-116 [facility] 20 U/L 14-59 [facility] 12 U/L Low 15-37 [facility] 25.6 [facility] 0.01 10 3/uL 0.00-0.03 [facility] 33.0 mg/dL High 7.0-18.0 [facility] 0.1 % 0.0-0.5 [facility] 8.9 mg/dL 8.5-10.1 [facility] 104 mmol/L 98-107 [facility] 26.7 mmol/L 21.0-32.0 [facility] 1.29 mg/dL High 0.55-1.02 [facility] 49 Low >=60 [facility] 233 mg/dL High 74-106 [facility] 4.0 mmol/L 3.5-5.1 [facility] 140 mmol/L 136-145 [facility] 0.5 mg/dL 0.2-1.0 [facility] 7.1 g/dL 6.4-8.2 [facility] Platelet mean volume Auto (B ld) [Entitic vol]on 05-26-2024 Platelet mean volume (Bld) [Entitic vol] 10.6 fL 9.5-13.5 [facility] Platelets Auto (Bld) [#/Vol] on 05-26-2024 Platelets (Bld) [#/Vol] 215 10 3/uL 150-450 [facility] RBC Auto (Bld) [#/Vol]on RBC (Bld) [#/Vol] 3.95 10 6/uL Low 4.20-5.40 [facility] Serum or plasma albumin/glob ulin mass ratioon 05-26-2024 Albumin/Globulin [Mass ratio] 0.6 {ratio} [facility] Serum or plasma anion gap de terminationon 05-26-2024 Anion gap [Moles/Vol] 13.3 mmol/L [facility] Estimated glomerular filtrat ion rate (GFR) non- Americanon 05-20-2024 GFR/1.73 sq M.predicted among non-blacks MDRD (S/P/Bld) [Vol rate/Area] 39 mL/min/{1.73_m2} Low >=60 [facility] Laboratory - Chemistry and C hemistry - challengeon 05-20-2024 Calcium [Mass/Vol] 8.8 mg/dL 8.5-10.1 [facility] Chloride [Moles/Vol] 103 mmol/L 98-107 [facility] CO2 [Moles/Vol] 24.3 mmol/L 21.0-32.0 [facility] Creatinine [Mass/Vol] 1.32 mg/dL High 0.55-1.02 [facility] GFR/1.73 sq M.predicted MDRD (S/P/Bld) [Vol rate/Area] 47 mL/min/{1.73_m2} Low >=60 [facility] Glucose [Mass/Vol] 243 mg/dL High 74-106 [facility] Potassium [Moles/Vol] 5.0 mmol/L 3.5-5.1 [facility] Sodium [Moles/Vol] 138 mmol/L 136-145 [facility] Urea nitrogen [Mass/Vol] 35.0 mg/dL High 7.0-18.0 [facility] Urea nitrogen/Creatinine [Mass ratio] 26.5 mg/mg [facility] No Panel Informationon 05-20 26.5 [facility] 35.0 mg/dL High 7.0-18.0 [facility] 8.8 mg/dL 8.5-10.1 [facility] 103 mmol/L 98-107 [facility] 24.3 mmol/L 21.0-32.0 [facility] 1.32 mg/dL High 0.55-1.02 [facility] 47 Low >=60 [facility] 243 mg/dL High 74-106 [facility] 5.0 mmol/L 3.5-5.1 [facility] 138 mmol/L 136-145 [facility] Serum or plasma anion gap de terminationon 05-20-2024 Anion gap [Moles/Vol] 15.7 mmol/L [facility] Basophils Auto (Bld) [#/Vol] on 05-06-2024 Basophils (Bld) [#/Vol] 0.1 10 3/uL 0.0-0.1 [facility] Basophils/100 WBC Auto (Bld) on 05-06-2024 Basophils/100 WBC (Bld) 0.9 % 0.2-2.0 [facility] Eosinophils/100 WBC Auto (Bl d)on 05-06-2024 Eosinophils/100 WBC (Bld) 2.7 % 0.9-7.0 [facility] Erythrocyte distribution wid th Auto (RBC) [Ratio]on 05-06-2024 Erythrocyte distribution width (RBC) [Ratio] 13.5 % 11.0-15.0 [facility] Estimated glomerular filtrat ion rate (GFR) non- Americanon 05-06-2024 GFR/1.73 sq M.predicted among non-blacks MDRD (S/P/Bld) [Vol rate/Area] 32 mL/min/{1.73_m2} Low >=60 [facility] Globulin Calc (S) [Mass/Vol] on 05-06-2024 Globulin (S) [Mass/Vol] 4.3 g/dL [facility] Hematocrit Auto (Bld) [Volum e fraction]on 05-06-2024 Hematocrit (Bld) [Volume fraction] 34.6 % Low 36.0-48.0 [facility] Hemoglobin [Mass/volume] in Bloodon 05-06-2024 Hemoglobin (Bld) [Mass/Vol] 11.1 g/dL Low 12.0-16.0 [facility] Laboratory - Chemistry and C hemistry - challengeon 05-06-2024 Albumin [Mass/Vol] 2.5 g/dL Low 3.4-5.0 [facility] ALP [Catalytic activity/Vol] 75 U/L 46-116 [facility] ALT [Catalytic activity/Vol] 16 U/L 14-59 [facility] AST [Catalytic activity/Vol] 11 U/L Low 15-37 [facility] Bilirubin [Mass/Vol] 0.4 mg/dL 0.2-1.0 [facility] Calcium [Mass/Vol] 8.4 mg/dL Low 8.5-10.1 [facility] Chloride [Moles/Vol] 107 mmol/L 98-107 [facility] CO2 [Moles/Vol] 25.7 mmol/L 21.0-32.0 [facility] Creatinine [Mass/Vol] 1.58 mg/dL High 0.55-1.02 [facility] GFR/1.73 sq M.predicted MDRD (S/P/Bld) [Vol rate/Area] 38 mL/min/{1.73_m2} Low >=60 [facility] Glucose [Mass/Vol] 146 mg/dL High 74-106 [facility] Magnesium [Mass/Vol] 1.6 mg/dL Low 1.8-2.4 [facility] Natriuretic peptide B (Bld) [Mass/Vol] 2762.0 pg/mL High <=1800.0 [facility] Comment on above: RESULTS CALLED TO CLARITZA SELLERS RN @BY Alla Venegas at [phone] Potassium [Moles/Vol] 4.1 mmol/L 3.5-5.1 [facility] Protein [Mass/Vol] 6.8 g/dL 6.4-8.2 [facility] Sodium [Moles/Vol] 141 mmol/L 136-145 [facility] Urea nitrogen [Mass/Vol] 49.0 mg/dL High 7.0-18.0 [facility] Urea nitrogen/Creatinine [Mass ratio] 31.0 mg/mg [facility] Laboratory - Hematology and Cell countson 05-06-2024 Immature granulocytes/100 WBC (Bld) 0.1 % 0.0-0.5 [facility] Leukocytes [#/volume] correc gali for nucleated erythrocytes in Blood by Automated counon 05-06-2024 WBC corrected for nucl RBC Auto (Bld) [#/Vol] 6.7 10 3/uL 4.0-11.0 [facility] Lymphocytes Auto (Bld) [#/Vo l]on 05-06-2024 Lymphocytes (Bld) [#/Vol] 1.5 10 3/uL 1.2-3.8 [facility] Lymphocytes/100 WBC Auto (Bl d)on 05-06-2024 Lymphocytes/100 WBC (Bld) 21.8 % 20.5-60.0 [facility] MCH Auto (RBC) [Entitic mass ]on 05-06-2024 MCH (RBC) [Entitic mass] 29.0 pg 26.7-34.0 [facility] MCHC Auto (RBC) [Mass/Vol]on 05-06-2024 MCHC (RBC) [Mass/Vol] 32.1 g/dL 29.9-35.2 [facility] MCV Auto (RBC) [Entitic vol] on 05-06-2024 MCV (RBC) [Entitic vol] 90.3 fL 81.0-99.0 [facility] Monocytes Auto (Bld) [#/Vol] on 05-06-2024 Monocytes (Bld) [#/Vol] 0.7 10 3/uL 0.3-0.8 [facility] Monocytes/100 WBC Auto (Bld) on 05-06-2024 Monocytes/100 WBC (Bld) 10.6 % 1.7-12.0 [facility] Neutrophils Auto (Bld) [#/Vo l]on 05-06-2024 Neutrophils (Bld) [#/Vol] 4.3 10 3/uL 1.4-6.5 [facility] Neutrophils/100 WBC Auto (Bl d)on 05-06-2024 Neutrophils/100 WBC (Bld) 63.9 % 43.0-75.0 [facility] No Panel Informationon 05-06 Eosinophils # (Auto) 0.2 10 3/uL 0.0-0.7 [facility] Immature Granulocyte # (Auto) 0.01 10 3/uL 0.00-0.03 [facility] Troponin I High Sensitivity 13.2 pg/mL 4.0-51.3 [facility] Comment on above: CUT-OFF POINTS [...] CLINICAL INFORMATION. 2762.0 pg/mL High <=1800.0 [facility] 13.2 pg/mL 4.0-51.3 [facility] 1.6 mg/dL Low 1.8-2.4 [facility] 2.5 g/dL Low 3.4-5.0 [facility] 0.2 10 3/uL 0.0-0.7 [facility] 75 U/L 46-116 [facility] 16 U/L 14-59 [facility] 11 U/L Low 15-37 [facility] 31.0 [facility] 0.01 10 3/uL 0.00-0.03 [facility] 49.0 mg/dL High 7.0-18.0 [facility] 0.1 % 0.0-0.5 [facility] 8.4 mg/dL Low 8.5-10.1 [facility] 107 mmol/L 98-107 [facility] 25.7 mmol/L 21.0-32.0 [facility] 1.58 mg/dL High 0.55-1.02 [facility] 38 Low >=60 [facility] 146 mg/dL High 74-106 [facility] 4.1 mmol/L 3.5-5.1 [facility] 141 mmol/L 136-145 [facility] 0.4 mg/dL 0.2-1.0 [facility] 6.8 g/dL 6.4-8.2 [facility] Platelet mean volume Auto (B ld) [Entitic vol]on 05-06-2024 Platelet mean volume (Bld) [Entitic vol] 11.3 fL 9.5-13.5 [facility] Platelets Auto (Bld) [#/Vol] on 05-06-2024 Platelets (Bld) [#/Vol] 146 10 3/uL Low 150-450 [facility] RBC Auto (Bld) [#/Vol]on RBC (Bld) [#/Vol] 3.83 10 6/uL Low 4.20-5.40 [facility] Serum or plasma albumin/glob ulin mass ratioon 05-06-2024 Albumin/Globulin [Mass ratio] 0.6 {ratio} [facility] Serum or plasma anion gap de terminationon 05-06-2024 Anion gap [Moles/Vol] 12.4 mmol/L [facility] Basophils Auto (Bld) [#/Vol] on 05-05-2024 Basophils (Bld) [#/Vol] 0.1 10 3/uL 0.0-0.1 [facility] Basophils/100 WBC Auto (Bld) on 05-05-2024 Basophils/100 WBC (Bld) 0.9 % 0.2-2.0 [facility] Eosinophils/100 WBC Auto (Bl d)on 05-05-2024 Eosinophils/100 WBC (Bld) 1.9 % 0.9-7.0 [facility] Erythrocyte distribution wid th Auto (RBC) [Ratio]on 05-05-2024 Erythrocyte distribution width (RBC) [Ratio] 13.4 % 11.0-15.0 [facility] Estimated glomerular filtrat ion rate (GFR) non- Americanon 05-05-2024 GFR/1.73 sq M.predicted among non-blacks MDRD (S/P/Bld) [Vol rate/Area] 29 mL/min/{1.73_m2} Low >=60 [facility] Globulin Calc (S) [Mass/Vol] on 05-05-2024 Globulin (S) [Mass/Vol] 4.4 g/dL [facility] Hematocrit Auto (Bld) [Volum e fraction]on 05-05-2024 Hematocrit (Bld) [Volume fraction] 33.8 % Low 36.0-48.0 [facility] Hemoglobin [Mass/volume] in Bloodon 05-05-2024 Hemoglobin (Bld) [Mass/Vol] 11.1 g/dL Low 12.0-16.0 [facility] Laboratory - Chemistry and C hemistry - challengeon 05-05-2024 Albumin [Mass/Vol] 2.6 g/dL Low 3.4-5.0 [facility] ALP [Catalytic activity/Vol] 74 U/L 46-116 [facility] ALT [Catalytic activity/Vol] 17 U/L 14-59 [facility] AST [Catalytic activity/Vol] 12 U/L Low 15-37 [facility] Bilirubin [Mass/Vol] 0.4 mg/dL 0.2-1.0 [facility] Calcium [Mass/Vol] 6.1 mg/dL Low 8.5-10.1 [facility] Chloride [Moles/Vol] 105 mmol/L 98-107 [facility] CO2 [Moles/Vol] 24.1 mmol/L 21.0-32.0 [facility] Creatinine [Mass/Vol] 1.71 mg/dL High 0.55-1.02 [facility] GFR/1.73 sq M.predicted MDRD (S/P/Bld) [Vol rate/Area] 35 mL/min/{1.73_m2} Low >=60 [facility] Glucose [Mass/Vol] 202 mg/dL High 74-106 [facility] Magnesium [Mass/Vol] 1.5 mg/dL Low 1.8-2.4 [facility] Natriuretic peptide B (Bld) [Mass/Vol] 2725.0 pg/mL High <=1800.0 [facility] Comment on above: RESULTS CALLED TO Frances Bryant (Austyn)@BY Franchesca Huynh MLT at 0547 Potassium [Moles/Vol] 5.9 mmol/L High 3.5-5.1 [facility] Protein [Mass/Vol] 7.0 g/dL 6.4-8.2 [facility] Sodium [Moles/Vol] 139 mmol/L 136-145 [facility] Urea nitrogen [Mass/Vol] 69.0 mg/dL High 7.0-18.0 [facility] Urea nitrogen/Creatinine [Mass ratio] 40.4 mg/mg [facility] Laboratory - Hematology and Cell countson 05-05-2024 Immature granulocytes/100 WBC (Bld) 0.3 % 0.0-0.5 [facility] Leukocytes [#/volume] correc gali for nucleated erythrocytes in Blood by Automated counon 05-05-2024 WBC corrected for nucl RBC Auto (Bld) [#/Vol] 6.9 10 3/uL 4.0-11.0 [facility] Lymphocytes Auto (Bld) [#/Vo l]on 05-05-2024 Lymphocytes (Bld) [#/Vol] 1.2 10 3/uL 1.2-3.8 [facility] Lymphocytes/100 WBC Auto (Bl d)on 05-05-2024 Lymphocytes/100 WBC (Bld) 18.0 % Low 20.5-60.0 [facility] MCH Auto (RBC) [Entitic mass ]on 05-05-2024 MCH (RBC) [Entitic mass] 29.3 pg 26.7-34.0 [facility] MCHC Auto (RBC) [Mass/Vol]on 05-05-2024 MCHC (RBC) [Mass/Vol] 32.8 g/dL 29.9-35.2 [facility] MCV Auto (RBC) [Entitic vol] on 05-05-2024 MCV (RBC) [Entitic vol] 89.2 fL 81.0-99.0 [facility] Monocytes Auto (Bld) [#/Vol] on 05-05-2024 Monocytes (Bld) [#/Vol] 0.6 10 3/uL 0.3-0.8 [facility] Monocytes/100 WBC Auto (Bld) on 05-05-2024 Monocytes/100 WBC (Bld) 8.7 % 1.7-12.0 [facility] Neutrophils Auto (Bld) [#/Vo l]on 05-05-2024 Neutrophils (Bld) [#/Vol] 4.8 10 3/uL 1.4-6.5 [facility] Neutrophils/100 WBC Auto (Bl d)on 05-05-2024 Neutrophils/100 WBC (Bld) 70.2 % 43.0-75.0 [facility] No Panel Informationon 05-05 Eosinophils # (Auto) 0.1 10 3/uL 0.0-0.7 [facility] Immature Granulocyte # (Auto) 0.02 10 3/uL 0.00-0.03 [facility] Troponin I High Sensitivity 14.0 pg/mL 4.0-51.3 [facility] Comment on above: CUT-OFF POINTS [...] CLINICAL INFORMATION. 2725.0 pg/mL High <=1800.0 [facility] 14.0 pg/mL 4.0-51.3 [facility] 1.5 mg/dL Low 1.8-2.4 [facility] 2.6 g/dL Low 3.4-5.0 [facility] 0.1 10 3/uL 0.0-0.7 [facility] 74 U/L 46-116 [facility] 17 U/L 14-59 [facility] 12 U/L Low 15-37 [facility] 40.4 [facility] 0.02 10 3/uL 0.00-0.03 [facility] 69.0 mg/dL High 7.0-18.0 [facility] 0.3 % 0.0-0.5 [facility] 6.1 mg/dL Low 8.5-10.1 [facility] 105 mmol/L 98-107 [facility] 24.1 mmol/L 21.0-32.0 [facility] 1.71 mg/dL High 0.55-1.02 [facility] 35 Low >=60 [facility] 202 mg/dL High 74-106 [facility] 5.9 mmol/L High 3.5-5.1 [facility] 139 mmol/L 136-145 [facility] 0.4 mg/dL 0.2-1.0 [facility] 7.0 g/dL 6.4-8.2 [facility] Platelet mean volume Auto (B ld) [Entitic vol]on 05-05-2024 Platelet mean volume (Bld) [Entitic vol] 11.8 fL 9.5-13.5 [facility] Platelets Auto (Bld) [#/Vol] on 05-05-2024 Platelets (Bld) [#/Vol] 173 10 3/uL 150-450 [facility] RBC Auto (Bld) [#/Vol]on RBC (Bld) [#/Vol] 3.79 10 6/uL Low 4.20-5.40 [facility] Serum or plasma albumin/glob ulin mass ratioon 05-05-2024 Albumin/Globulin [Mass ratio] 0.6 {ratio} [facility] Serum or plasma anion gap de terminationon 05-05-2024 Anion gap [Moles/Vol] 15.8 [facility] Basophils Auto (Bld) [#/Vol] on 05-04-2024 Basophils (Bld) [#/Vol] 0.1 10 3/uL 0.0-0.1 [facility] Basophils/100 WBC Auto (Bld) on 05-04-2024 Basophils/100 WBC (Bld) 0.9 % 0.2-2.0 [facility] Eosinophils/100 WBC Auto (Bl d)on 05-04-2024 Eosinophils/100 WBC (Bld) 1.7 % 0.9-7.0 [facility] Erythrocyte distribution wid th Auto (RBC) [Ratio]on 05-04-2024 Erythrocyte distribution width (RBC) [Ratio] 13.6 % 11.0-15.0 [facility] Estimated glomerular filtrat ion rate (GFR) non- Americanon 05-04-2024 GFR/1.73 sq M.predicted among non-blacks MDRD (S/P/Bld) [Vol rate/Area] 21 mL/min/{1.73_m2} Low >=60 [facility] Globulin Calc (S) [Mass/Vol] on 05-04-2024 Globulin (S) [Mass/Vol] 4.9 g/dL [facility] Hematocrit Auto (Bld) [Volum e fraction]on 05-04-2024 Hematocrit (Bld) [Volume fraction] 37.6 % 36.0-48.0 [facility] Hemoglobin [Mass/volume] in Bloodon 05-04-2024 Hemoglobin (Bld) [Mass/Vol] 12.0 g/dL 12.0-16.0 [facility] Laboratory - Chemistry and C hemistry - challengeon 05-04-2024 Bilirubin Ql (U) Negative NEGATIVE [facility] Glucose (U) [Mass/Vol] 250 mg/dL Abnormal NEGATIVE [facility] Ketones Ql (U) Negative NEGATIVE [facility] pH (U) 6.0 [pH] 5.0-9.0 [facility] Specific gravity (U) [Rel density] 1.015 1.005-1.025 [facility] Urobilinogen Qn (U) 0.2 {Meka'U}/dL 0.2-1.0 [facility] Albumin [Mass/Vol] 2.8 g/dL Low 3.4-5.0 [facility] ALP [Catalytic activity/Vol] 86 U/L 46-116 [facility] ALT [Catalytic activity/Vol] 16 U/L 14-59 [facility] Ammonia (P) [Moles/Vol] 12 umol/L 11-32 [facility] AST [Catalytic activity/Vol] 8 U/L Low 15-37 [facility] Bilirubin [Mass/Vol] 0.4 mg/dL 0.2-1.0 [facility] Calcium [Mass/Vol] 8.8 mg/dL 8.5-10.1 [facility] Chloride [Moles/Vol] 101 mmol/L 98-107 [facility] CO2 [Moles/Vol] 22.4 mmol/L 21.0-32.0 [facility] Creatinine [Mass/Vol] 2.24 mg/dL High 0.55-1.02 [facility] GFR/1.73 sq M.predicted MDRD (S/P/Bld) [Vol rate/Area] 26 mL/min/{1.73_m2} Low >=60 [facility] Glucose [Mass/Vol] 369 mg/dL High 74-106 [facility] Lactate [Moles/Vol] 1.2 mmol/L 0.4-2.0 [facility] Magnesium [Mass/Vol] 1.7 mg/dL Low 1.8-2.4 [facility] Natriuretic peptide B (Bld) [Mass/Vol] 2342.0 pg/mL High <=1800.0 [facility] Comment on above: RESULTS CALLED TO RENETTA Renteria RN @BY Andrea Long MLTat 1126 Potassium [Moles/Vol] 5.6 mmol/L High 3.5-5.1 [facility] Protein [Mass/Vol] 7.7 g/dL 6.4-8.2 [facility] Sodium [Moles/Vol] 134 mmol/L Low 136-145 [facility] T4 [Mass/Vol] 11.80 ug/dL 4.80-13.90 [facility] TSH Qn 0.933 m[IU]/L 0.358-3.740 [facility] Urea nitrogen [Mass/Vol] 86.0 mg/dL High 7.0-18.0 [facility] Comment on above: RESULTS CALLED TO RENETTA Renteria RN @BY Andrea Long MLTat 1126 Urea nitrogen/Creatinine [Mass ratio] 38.4 mg/mg [facility] Laboratory - Hematology and Cell countson 06-23-2024 Immature granulocytes/100 WBC (Bld) 0.3 % 0.0-0.5 [facility] - Microbiology an d Antimicrobial susceptibilityOrdered By: Carl Morales on 05-04-2024 Bacteria identified Cx Nom (U) [facility] - Specimen inform ationon 05-04-2024 Appearance (U) SLIGHTLY CLOUDY Abnormal CLEAR [facility] Color (U) YELLOW YELLOW [facility] Laboratory - Urinalysison Hyaline casts LM Ql (Urine sed) RARE [facility] Leukocyte esterase Test strip Ql (U) Negative NEGATIVE [facility] Mucus Ql (Urine sed) NONE SEEN NONE SEEN [facility] Nitrite Ql (U) Negative NEGATIVE [facility] Protein Ql (U) 100 mg/dL Abnormal NEG/TRACE [facility] Leukocytes [#/volume] correc gali for nucleated erythrocytes in Blood by Automated counon 05-04-2024 WBC corrected for nucl RBC Auto (Bld) [#/Vol] 6.9 10 3/uL 4.0-11.0 [facility] Lymphocytes Auto (Bld) [#/Vo l]on 05-04-2024 Lymphocytes (Bld) [#/Vol] 1.2 10 3/uL 1.2-3.8 [facility] Lymphocytes/100 WBC Auto (Bl d)on 05-04-2024 Lymphocytes/100 WBC (Bld) 17.8 % Low 20.5-60.0 [facility] MCH Auto (RBC) [Entitic mass ]on 05-04-2024 MCH (RBC) [Entitic mass] 29.3 pg 26.7-34.0 [facility] MCHC Auto (RBC) [Mass/Vol]on 05-04-2024 MCHC (RBC) [Mass/Vol] 31.9 g/dL 29.9-35.2 [facility] MCV Auto (RBC) [Entitic vol] on 05-04-2024 MCV (RBC) [Entitic vol] 91.9 fL 81.0-99.0 [facility] Monocytes Auto (Bld) [#/Vol] on 05-04-2024 Monocytes (Bld) [#/Vol] 0.7 10 3/uL 0.3-0.8 [facility] Monocytes/100 WBC Auto (Bld) on 05-04-2024 Monocytes/100 WBC (Bld) 10.4 % 1.7-12.0 [facility] Neutrophils Auto (Bld) [#/Vo l]on 05-04-2024 Neutrophils (Bld) [#/Vol] 4.8 10 3/uL 1.4-6.5 [facility] Neutrophils/100 WBC Auto (Bl d)on 05-04-2024 Neutrophils/100 WBC (Bld) 68.9 % 43.0-75.0 [facility] No Panel Informationon 05-04 Acetone Level Negative NEGATIVE [facility] Negative NEGATIVE [facility] Urine Bacteria MODERATE #/HPF Abnormal NONE SEEN [facility] Urine Culture Reflexed ALREADY ORDERED [facility] Urine Microscopic Review YES [facility] Urine Occult Blood MODERATE Abnormal NEGATIVE [facility] Urine Other Casts SEEN #/LPF Abnormal NONE SEEN [facility] Urine Other Crystals None Seen #/HPF None Seen [facility] Urine RBC 2-5 #/HPF Abnormal 0-2 [facility] Urine Squamous Epithelial Cells FEW #/LPF Abnormal NONE/RARE [facility] Urine WBC 2-5 #/HPF Abnormal NONE SEEN [facility] ALREADY ORDERED [facility] YES [facility] SEEN #/LPF Abnormal NONE SEEN [facility] Negative NEGATIVE [facility] None Seen #/HPF None Seen [facility] MODERATE Abnormal NEGATIVE [facility] MODERATE #/HPF Abnormal NONE SEEN [facility] SLIGHTLY CLOUDY Abnormal CLEAR [facility] RARE [facility] YELLOW YELLOW [facility] NONE SEEN NONE SEEN [facility] 250 mg/dL Abnormal NEGATIVE [facility] 2-5 #/HPF Abnormal NONE SEEN [facility] FEW #/LPF Abnormal NONE/[facility] 6.0 5.0-9.0 [facility] 100 mg/dL Abnormal NEG/TRACE [facility] 1.015 1.005-1.025 [facility] 0.2 EU/dL 0.2-1.0 [facility] Eosinophils # (Auto) 0.1 10 3/uL 0.0-0.7 [facility] Immature Granulocyte # (Auto) 0.02 10 3/uL 0.00-0.03 [facility] Troponin I High Sensitivity 10.5 pg/mL 4.0-51.3 [facility] Comment on above: CUT-OFF POINTS [...] Pressure CO2 38.5 mm[Hg] Low 40.0-52.0 [facility] Venous Blood pH 7.353 7.330-7.430 [facility] 0.933 u[iU]/mL 0.358-3.740 [facility] 11.80 ug/dL 4.80-13.90 [facility] 1.7 mg/dL Low 1.8-2.4 [facility] 2342.0 pg/mL High <=1800.0 [facility] 1.2 mmol/L 0.4-2.0 [facility] 10.5 pg/mL 4.0-51.3 [facility] 12 umol/L 11-32 [facility] 38.5 mm[Hg] Low 40.0-52.0 [facility] 7.353 7.330-7.430 [facility] 2.8 g/dL Low 3.4-5.0 [facility] 0.1 10 3/uL 0.0-0.7 [facility] 86 U/L 46-116 [facility] 16 U/L 14-59 [facility] 8 U/L Low 15-37 [facility] 38.4 [facility] 0.02 10 3/uL 0.00-0.03 [facility] 86.0 mg/dL High 7.0-18.0 [facility] 0.3 % 0.0-0.5 [facility] 8.8 mg/dL 8.5-10.1 [facility] 101 mmol/L 98-107 [facility] 22.4 mmol/L 21.0-32.0 [facility] 2.24 mg/dL High 0.55-1.02 [facility] 26 Low >=60 [facility] 369 mg/dL High 74-106 [facility] 5.6 mmol/L High 3.5-5.1 [facility] 134 mmol/L Low 136-145 [facility] 0.4 mg/dL 0.2-1.0 [facility] 7.7 g/dL 6.4-8.2 [facility] No Panel InformationOrdered By: LAMINE SINGH on 05-04-2024 Blood Culture 1 [facility] Platelet mean volume Auto (B ld) [Entitic vol]on 05-04-2024 Platelet mean volume (Bld) [Entitic vol] 11.4 fL 9.5-13.5 [facility] Platelets Auto (Bld) [#/Vol] on 05-04-2024 Platelets (Bld) [#/Vol] 160 10 3/uL 150-450 [facility] RBC Auto (Bld) [#/Vol]on RBC (Bld) [#/Vol] 4.09 10 6/uL Low 4.20-5.40 [facility] Serum or plasma albumin/glob ulin mass ratioon 05-04-2024 Albumin/Globulin [Mass ratio] 0.6 {ratio} [facility] Serum or plasma anion gap de terminationon 05-04-2024 Anion gap [Moles/Vol] 16.2 mmol/L [facility] Basophils Auto (Bld) [#/Vol] on 05-01-2024 Basophils (Bld) [#/Vol] 0.1 10 3/uL 0.0-0.1 [facility] Basophils/100 WBC Auto (Bld) on 05-01-2024 Basophils/100 WBC (Bld) 0.7 % 0.2-2.0 [facility] Eosinophils/100 WBC Auto (Bl d)on 05-01-2024 Eosinophils/100 WBC (Bld) 2.3 % 0.9-7.0 [facility] Erythrocyte distribution wid th Auto (RBC) [Ratio]on 05-01-2024 Erythrocyte distribution width (RBC) [Ratio] 13.6 % 11.0-15.0 [facility] Estimated glomerular filtrat ion rate (GFR) non- Americanon 05-01-2024 GFR/1.73 sq M.predicted among non-blacks MDRD (S/P/Bld) [Vol rate/Area] 22 mL/min/{1.73_m2} Low >=60 [facility] Globulin Calc (S) [Mass/Vol] on 05-01-2024 Globulin (S) [Mass/Vol] 4.4 g/dL [facility] Hematocrit Auto (Bld) [Volum e fraction]on 05-01-2024 Hematocrit (Bld) [Volume fraction] 37.5 % 36.0-48.0 [facility] Hemoglobin [Mass/volume] in Bloodon 05-01-2024 Hemoglobin (Bld) [Mass/Vol] 12.1 g/dL 12.0-16.0 [facility] Laboratory - Chemistry and C hemistry - challengeon 05-01-2024 Calcium [Mass/Vol] 9.2 mg/dL 8.5-10.1 [facility] Chloride [Moles/Vol] 104 mmol/L 98-107 [facility] CO2 [Moles/Vol] 23.2 mmol/L 21.0-32.0 [facility] Creatinine [Mass/Vol] 2.14 mg/dL High 0.55-1.02 [facility] GFR/1.73 sq M.predicted MDRD (S/P/Bld) [Vol rate/Area] 27 mL/min/{1.73_m2} Low >=60 [facility] Glucose [Mass/Vol] 220 mg/dL High 74-106 [facility] Potassium [Moles/Vol] 5.3 mmol/L High 3.5-5.1 [facility] Sodium [Moles/Vol] 134 mmol/L Low 136-145 [facility] Urea nitrogen [Mass/Vol] 87.0 mg/dL High 7.0-18.0 [facility] Comment on above: RESULTS CALLED TO Klaus Michaels RN @BY Sury Jayalison [id number] Urea nitrogen/Creatinine [Mass ratio] 40.7 mg/mg [facility] Albumin [Mass/Vol] 2.8 g/dL Low 3.4-5.0 [facility] ALP [Catalytic activity/Vol] 80 U/L 46-116 [facility] ALT [Catalytic activity/Vol] 16 U/L 14-59 [facility] AST [Catalytic activity/Vol] 11 U/L Low 15-37 [facility] Bilirubin [Mass/Vol] 0.4 mg/dL 0.2-1.0 [facility] Natriuretic peptide B (Bld) [Mass/Vol] 1624.0 pg/mL <=1800.0 [facility] Protein [Mass/Vol] 7.2 g/dL 6.4-8.2 [facility] Laboratory - Hematology and Cell countson 05-01-2024 Immature granulocytes/100 WBC (Bld) 0.1 % 0.0-0.5 [facility] Leukocytes [#/volume] correc gali for nucleated erythrocytes in Blood by Automated counon 05-01-2024 WBC corrected for nucl RBC Auto (Bld) [#/Vol] 7.4 10 3/uL 4.0-11.0 [facility] Lymphocytes Auto (Bld) [#/Vo l]on 05-01-2024 Lymphocytes (Bld) [#/Vol] 2.2 10 3/uL 1.2-3.8 [facility] Lymphocytes/100 WBC Auto (Bl d)on 05-01-2024 Lymphocytes/100 WBC (Bld) 29.4 % 20.5-60.0 [facility] MCH Auto (RBC) [Entitic mass ]on 05-01-2024 MCH (RBC) [Entitic mass] 29.2 pg 26.7-34.0 [facility] MCHC Auto (RBC) [Mass/Vol]on 05-01-2024 MCHC (RBC) [Mass/Vol] 32.3 g/dL 29.9-35.2 [facility] MCV Auto (RBC) [Entitic vol] on 05-01-2024 MCV (RBC) [Entitic vol] 90.4 fL 81.0-99.0 [facility] Monocytes Auto (Bld) [#/Vol] on 05-01-2024 Monocytes (Bld) [#/Vol] 0.9 10 3/uL High 0.3-0.8 [facility] Monocytes/100 WBC Auto (Bld) on 05-01-2024 Monocytes/100 WBC (Bld) 11.5 % 1.7-12.0 [facility] Neutrophils Auto (Bld) [#/Vo l]on 05-01-2024 Neutrophils (Bld) [#/Vol] 4.1 10 3/uL 1.4-6.5 [facility] Neutrophils/100 WBC Auto (Bl d)on 05-01-2024 Neutrophils/100 WBC (Bld) 56.0 % 43.0-75.0 [facility] No Panel Informationon 05-01 40.7 [facility] 87.0 mg/dL High 7.0-18.0 [facility] 9.2 mg/dL 8.5-10.1 [facility] 104 mmol/L 98-107 [facility] 23.2 mmol/L 21.0-32.0 [facility] 2.14 mg/dL High 0.55-1.02 [facility] 27 Low >=60 [facility] 220 mg/dL High 74-106 [facility] 5.3 mmol/L High 3.5-5.1 [facility] 134 mmol/L Low 136-145 [facility] Eosinophils # (Auto) 0.2 10 3/uL 0.0-0.7 [facility] Immature Granulocyte # (Auto) 0.01 10 3/uL 0.00-0.03 [facility] 1624.0 pg/mL <=1800.0 [facility] 2.8 g/dL Low 3.4-5.0 [facility] 0.2 10 3/uL 0.0-0.7 [facility] 80 U/L 46-116 [facility] 16 U/L 14-59 [facility] 11 U/L Low 15-37 [facility] 0.01 10 3/uL 0.00-0.03 [facility] 0.1 % 0.0-0.5 [facility] 0.4 mg/dL 0.2-1.0 [facility] 7.2 g/dL 6.4-8.2 [facility] Platelet mean volume Auto (B ld) [Entitic vol]on 05-01-2024 Platelet mean volume (Bld) [Entitic vol] 11.6 fL 9.5-13.5 [facility] Platelets Auto (Bld) [#/Vol] on 05-01-2024 Platelets (Bld) [#/Vol] 151 10 3/uL 150-450 [facility] RBC Auto (Bld) [#/Vol]on RBC (Bld) [#/Vol] 4.15 10 6/uL Low 4.20-5.40 [facility] Serum or plasma albumin/glob ulin mass ratioon 05-01-2024 Albumin/Globulin [Mass ratio] 0.6 {ratio} [facility] Serum or plasma anion gap de terminationon 05-01-2024 Anion gap [Moles/Vol] 12.1 mmol/L [facility] Basophils Auto (Bld) [#/Vol] on 04-30-2024 Basophils (Bld) [#/Vol] 0.1 10 3/uL 0.0-0.1 [facility] Basophils/100 WBC Auto (Bld) on 04-30-2024 Basophils/100 WBC (Bld) 0.9 % 0.2-2.0 [facility] Eosinophils/100 WBC Auto (Bl d)on 04-30-2024 Eosinophils/100 WBC (Bld) 2.4 % 0.9-7.0 [facility] Erythrocyte distribution wid th Auto (RBC) [Ratio]on 04-30-2024 Erythrocyte distribution width (RBC) [Ratio] 13.5 % 11.0-15.0 [facility] Estimated glomerular filtrat ion rate (GFR) non- Americanon 04-30-2024 GFR/1.73 sq M.predicted among non-blacks MDRD (S/P/Bld) [Vol rate/Area] 15 mL/min/{1.73_m2} Low >=60 [facility] Fibrin D-dimer [Presence] in Platelet poor plasma by Latex agglutinationon 04-30-2024 Fibrin D-dimer LA Ql (PPP) 0.24 mg/L FEU <=0.59 [facility] Comment on above: Increases in D-Dimer [...] (Bld) [Volume fraction] 38.6 % 36.0-48.0 [facility] Hemoglobin [Mass/volume] in Bloodon 04-30-2024 Hemoglobin (Bld) [Mass/Vol] 12.5 g/dL 12.0-16.0 [facility] Laboratory - Chemistry and C hemistry - challengeon 04-30-2024 Calcium [Mass/Vol] 9.0 mg/dL 8.5-10.1 [facility] Chloride [Moles/Vol] 100 mmol/L 98-107 [facility] CO2 [Moles/Vol] 24.4 mmol/L 21.0-32.0 [facility] Creatinine [Mass/Vol] 3.02 mg/dL High 0.55-1.02 [facility] GFR/1.73 sq M.predicted MDRD (S/P/Bld) [Vol rate/Area] 18 mL/min/{1.73_m2} Low >=60 [facility] Glucose [Mass/Vol] 271 mg/dL High 74-106 [facility] Magnesium [Mass/Vol] 1.8 mg/dL 1.8-2.4 [facility] Natriuretic peptide B (Bld) [Mass/Vol] 1485.0 pg/mL <=1800.0 [facility] Potassium [Moles/Vol] 5.3 mmol/L High 3.5-5.1 [facility] Sodium [Moles/Vol] 133 mmol/L Low 136-145 [facility] Urea nitrogen [Mass/Vol] 99.0 mg/dL High 7.0-18.0 [facility] Comment on above: RESULTS CALLED TO Yoel WADE)@BY Franchesca Huynh MLT at [phone] Urea nitrogen/Creatinine [Mass ratio] 32.8 mg/mg [facility] Laboratory - Hematology and Cell countson 04-30-2024 Immature granulocytes/100 WBC (Bld) 0.1 % 0.0-0.5 [facility] Leukocytes [#/volume] correc gail for nucleated erythrocytes in Blood by Automated counon 04-30-2024 WBC corrected for nucl RBC Auto (Bld) [#/Vol] 7.5 10 3/uL 4.0-11.0 [facility] Lymphocytes Auto (Bld) [#/Vo l]on 04-30-2024 Lymphocytes (Bld) [#/Vol] 2.1 10 3/uL 1.2-3.8 [facility] Lymphocytes/100 WBC Auto (Bl d)on 04-30-2024 Lymphocytes/100 WBC (Bld) 27.8 % 20.5-60.0 [facility] MCH Auto (RBC) [Entitic mass ]on 04-30-2024 MCH (RBC) [Entitic mass] 29.6 pg 26.7-34.0 [facility] MCHC Auto (RBC) [Mass/Vol]on 04-30-2024 MCHC (RBC) [Mass/Vol] 32.4 g/dL 29.9-35.2 [facility] MCV Auto (RBC) [Entitic vol] on 04-30-2024 MCV (RBC) [Entitic vol] 91.5 fL 81.0-99.0 [facility] Monocytes Auto (Bld) [#/Vol] on 04-30-2024 Monocytes (Bld) [#/Vol] 0.8 10 3/uL 0.3-0.8 [facility] Monocytes/100 WBC Auto (Bld) on 04-30-2024 Monocytes/100 WBC (Bld) 10.0 % 1.7-12.0 [facility] Neutrophils Auto (Bld) [#/Vo l]on 04-30-2024 Neutrophils (Bld) [#/Vol] 4.4 10 3/uL 1.4-6.5 [facility] Neutrophils/100 WBC Auto (Bl d)on 04-30-2024 Neutrophils/100 WBC (Bld) 58.8 % 43.0-75.0 [facility] No Panel Informationon 04-30 Troponin I High Sensitivity 12.6 pg/mL 4.0-51.3 [facility] Comment on above: CUT-OFF POINTS [...] AND CLINICAL INFORMATION. 1.8 mg/dL 1.8-2.4 [facility] 1485.0 pg/mL <=1800.0 [facility] 12.6 pg/mL 4.0-51.3 [facility] 32.8 [facility] 99.0 mg/dL High 7.0-18.0 [facility] 9.0 mg/dL 8.5-10.1 [facility] 100 mmol/L 98-107 [facility] 24.4 mmol/L 21.0-32.0 [facility] 3.02 mg/dL High 0.55-1.02 [facility] 18 Low >=60 [facility] 271 mg/dL High 74-106 [facility] 5.3 mmol/L High 3.5-5.1 [facility] 133 mmol/L Low 136-145 [facility] Eosinophils # (Auto) 0.2 10 3/uL 0.0-0.7 [facility] Immature Granulocyte # (Auto) 0.01 10 3/uL 0.00-0.03 [facility] 0.2 10 3/uL 0.0-0.7 [facility] 0.01 10 3/uL 0.00-0.03 [facility] 0.1 % 0.0-0.5 [facility] Platelet mean volume Auto (B ld) [Entitic vol]on 04-30-2024 Platelet mean volume (Bld) [Entitic vol] 12.2 fL 9.5-13.5 [facility] Platelets Auto (Bld) [#/Vol] on 04-30-2024 Platelets (Bld) [#/Vol] 221 10 3/uL 150-450 [facility] RBC Auto (Bld) [#/Vol]on RBC (Bld) [#/Vol] 4.22 10 6/uL 4.20-5.40 [facility] Serum or plasma anion gap de terminationon 04-30-2024 Anion gap [Moles/Vol] 13.9 mmol/L [facility] Basophils Auto (Bld) [#/Vol] on 03-28-2024 Basophils (Bld) [#/Vol] 0.1 10 3/uL 0.0-0.1 [facility] Basophils/100 WBC Auto (Bld) on 03-28-2024 Basophils/100 WBC (Bld) 0.9 % 0.2-2.0 [facility] Eosinophils/100 WBC Auto (Bl d)on 03-28-2024 Eosinophils/100 WBC (Bld) 1.7 % 0.9-7.0 [facility] Erythrocyte distribution wid th Auto (RBC) [Ratio]on 03-28-2024 Erythrocyte distribution width (RBC) [Ratio] 14.2 % 11.0-15.0 [facility] Estimated glomerular filtrat ion rate (GFR) non- Americanon 03-28-2024 GFR/1.73 sq M.predicted among non-blacks MDRD (S/P/Bld) [Vol rate/Area] 39 mL/min/{1.73_m2} Low >=60 [facility] Globulin Calc (S) [Mass/Vol] on 03-28-2024 Globulin (S) [Mass/Vol] 4.8 g/dL [facility] Hematocrit Auto (Bld) [Volum e fraction]on 03-28-2024 Hematocrit (Bld) [Volume fraction] 40.0 % 36.0-48.0 [facility] Hemoglobin [Mass/volume] in Bloodon 03-28-2024 Hemoglobin (Bld) [Mass/Vol] 12.6 g/dL 12.0-16.0 [facility] Laboratory - Chemistry and C hemistry - challengeon 03-28-2024 Albumin [Mass/Vol] 2.5 g/dL Low 3.4-5.0 [facility] ALP [Catalytic activity/Vol] 93 U/L 46-116 [facility] ALT [Catalytic activity/Vol] 9 U/L Low 14-59 [facility] AST [Catalytic activity/Vol] 10 U/L Low 15-37 [facility] Bilirubin [Mass/Vol] 0.9 mg/dL 0.2-1.0 [facility] Calcium [Mass/Vol] 8.5 mg/dL 8.5-10.1 [facility] Chloride [Moles/Vol] 96 mmol/L Low 98-107 [facility] CO2 [Moles/Vol] 27.1 mmol/L 21.0-32.0 [facility] Creatinine [Mass/Vol] 1.33 mg/dL High 0.55-1.02 [facility] GFR/1.73 sq M.predicted MDRD (S/P/Bld) [Vol rate/Area] 47 mL/min/{1.73_m2} Low >=60 [facility] Glucose [Mass/Vol] 261 mg/dL High 74-106 [facility] Magnesium [Mass/Vol] 1.8 mg/dL 1.8-2.4 [facility] Natriuretic peptide B (Bld) [Mass/Vol] 3338.0 pg/mL High <=1800.0 [facility] Comment on above: RESULTS CALLED TO Claritza WADE)@BY Franchesca Huynh MLT at 0554 Potassium [Moles/Vol] 3.8 mmol/L 3.5-5.1 [facility] Protein [Mass/Vol] 7.3 g/dL 6.4-8.2 [facility] Sodium [Moles/Vol] 133 mmol/L Low 136-145 [facility] Urea nitrogen [Mass/Vol] 36.0 mg/dL High 7.0-18.0 [facility] Urea nitrogen/Creatinine [Mass ratio] 27.1 mg/mg [facility] Laboratory - Hematology and Cell countson 03-28-2024 Immature granulocytes/100 WBC (Bld) 0.4 % 0.0-0.5 [facility] Leukocytes [#/volume] correc gali for nucleated erythrocytes in Blood by Automated counon 03-28-2024 WBC corrected for nucl RBC Auto (Bld) [#/Vol] 8.4 10 3/uL 4.0-11.0 [facility] Lymphocytes Auto (Bld) [#/Vo l]on 03-28-2024 Lymphocytes (Bld) [#/Vol] 1.8 10 3/uL 1.2-3.8 [facility] Lymphocytes/100 WBC Auto (Bl d)on 03-28-2024 Lymphocytes/100 WBC (Bld) 21.4 % 20.5-60.0 [facility] MCH Auto (RBC) [Entitic mass ]on 03-28-2024 MCH (RBC) [Entitic mass] 29.0 pg 26.7-34.0 [facility] MCHC Auto (RBC) [Mass/Vol]on 03-28-2024 MCHC (RBC) [Mass/Vol] 31.5 g/dL 29.9-35.2 [facility] MCV Auto (RBC) [Entitic vol] on 03-28-2024 MCV (RBC) [Entitic vol] 92.0 fL 81.0-99.0 [facility] Monocytes Auto (Bld) [#/Vol] on 03-28-2024 Monocytes (Bld) [#/Vol] 0.8 10 3/uL 0.3-0.8 [facility] Monocytes/100 WBC Auto (Bld) on 03-28-2024 Monocytes/100 WBC (Bld) 9.7 % 1.7-12.0 [facility] Neutrophils Auto (Bld) [#/Vo l]on 03-28-2024 Neutrophils (Bld) [#/Vol] 5.6 10 3/uL 1.4-6.5 [facility] Neutrophils/100 WBC Auto (Bl d)on 03-28-2024 Neutrophils/100 WBC (Bld) 65.9 % 43.0-75.0 [facility] No Panel Informationon 03-28 Eosinophils # (Auto) 0.1 10 3/uL 0.0-0.7 [facility] Immature Granulocyte # (Auto) 0.03 10 3/uL 0.00-0.03 [facility] 3338.0 pg/mL High <=1800.0 [facility] 1.8 mg/dL 1.8-2.4 [facility] 2.5 g/dL Low 3.4-5.0 [facility] 0.1 10 3/uL 0.0-0.7 [facility] 93 U/L 46-116 [facility] 9 U/L Low 14-59 [facility] 10 U/L Low 15-37 [facility] 27.1 [facility] 0.03 10 3/uL 0.00-0.03 [facility] 36.0 mg/dL High 7.0-18.0 [facility] 0.4 % 0.0-0.5 [facility] 8.5 mg/dL 8.5-10.1 [facility] 96 mmol/L Low 98-107 [facility] 27.1 mmol/L 21.0-32.0 [facility] 1.33 mg/dL High 0.55-1.02 [facility] 47 Low >=60 [facility] 261 mg/dL High 74-106 [facility] 3.8 mmol/L 3.5-5.1 [facility] 133 mmol/L Low 136-145 [facility] 0.9 mg/dL 0.2-1.0 [facility] 7.3 g/dL 6.4-8.2 [facility] Platelet mean volume Auto (B ld) [Entitic vol]on 03-28-2024 Platelet mean volume (Bld) [Entitic vol] 10.5 fL 9.5-13.5 [facility] Platelets Auto (Bld) [#/Vol] on 03-28-2024 Platelets (Bld) [#/Vol] 197 10 3/uL 150-450 [facility] RBC Auto (Bld) [#/Vol]on RBC (Bld) [#/Vol] 4.35 10 6/uL 4.20-5.40 [facility] Serum or plasma albumin/glob ulin mass ratioon 03-28-2024 Albumin/Globulin [Mass ratio] 0.5 {ratio} [facility] Serum or plasma anion gap de terminationon 03-28-2024 Anion gap [Moles/Vol] 13.7 mmol/L [facility] Basophils Auto (Bld) [#/Vol] on 03-27-2024 Basophils (Bld) [#/Vol] 0.1 10 3/uL 0.0-0.1 [facility] Basophils/100 WBC Auto (Bld) on 03-27-2024 Basophils/100 WBC (Bld) 0.8 % 0.2-2.0 [facility] Eosinophils/100 WBC Auto (Bl d)on 03-27-2024 Eosinophils/100 WBC (Bld) 1.1 % 0.9-7.0 [facility] Erythrocyte distribution wid th Auto (RBC) [Ratio]on 03-27-2024 Erythrocyte distribution width (RBC) [Ratio] 14.2 % 11.0-15.0 [facility] Estimated glomerular filtrat ion rate (GFR) non- Americanon 03-27-2024 GFR/1.73 sq M.predicted among non-blacks MDRD (S/P/Bld) [Vol rate/Area] 44 mL/min/{1.73_m2} Low >=60 [facility] Globulin Calc (S) [Mass/Vol] on 03-27-2024 Globulin (S) [Mass/Vol] 4.6 g/dL [facility] Glucose mean value [Mass/vol ume] in Blood Estimated from glycated hemoglobinon 03-27-2024 Average glucose Estimated from glycated hemoglobin (Bld) [Mass/Vol] 275 mg/dL [facility] Hematocrit Auto (Bld) [Volum e fraction]on 03-27-2024 Hematocrit (Bld) [Volume fraction] 37.4 % 36.0-48.0 [facility] Hemoglobin [Mass/volume] in Bloodon 03-27-2024 Hemoglobin (Bld) [Mass/Vol] 12.1 g/dL 12.0-16.0 [facility] Laboratory - Chemistry and C hemistry - challengeon 03-27-2024 Albumin [Mass/Vol] 2.6 g/dL Low 3.4-5.0 [facility] ALP [Catalytic activity/Vol] 89 U/L 46-116 [facility] ALT [Catalytic activity/Vol] 12 U/L Low 14-59 [facility] AST [Catalytic activity/Vol] 9 U/L Low 15-37 [facility] Bilirubin [Mass/Vol] 0.9 mg/dL 0.2-1.0 [facility] Calcium [Mass/Vol] 9.1 mg/dL 8.5-10.1 [facility] Chloride [Moles/Vol] 99 mmol/L 98-107 [facility] CO2 [Moles/Vol] 28.8 mmol/L 21.0-32.0 [facility] Creatinine [Mass/Vol] 1.19 mg/dL High 0.55-1.02 [facility] GFR/1.73 sq M.predicted MDRD (S/P/Bld) [Vol rate/Area] 53 mL/min/{1.73_m2} Low >=60 [facility] Glucose [Mass/Vol] 273 mg/dL High 74-106 [facility] Magnesium [Mass/Vol] 1.7 mg/dL Low 1.8-2.4 [facility] Natriuretic peptide B (Bld) [Mass/Vol] 4572.0 pg/mL High <=1800.0 [facility] Comment on above: RESULTS CALLED TO SA RA MIGUEL RN @BY Alla Kevin [id number] Potassium [Moles/Vol] 3.6 mmol/L 3.5-5.1 [facility] Protein [Mass/Vol] 7.2 g/dL 6.4-8.2 [facility] Sodium [Moles/Vol] 135 mmol/L Low 136-145 [facility] Urea nitrogen [Mass/Vol] 34.0 mg/dL High 7.0-18.0 [facility] Urea nitrogen/Creatinine [Mass ratio] 28.6 mg/mg [facility] Laboratory - Hematology and Cell countson 03-27-2024 HbA1c (Bld) [Mass fraction] 11.2 % High 4.5-6.2 [facility] Comment on above: ADA RECOMMENDED LIMI T 4.0 - 6.0ADA THERAPEUTIC TARGET < 7.0ACTION SUGGESTED> 7.0 Immature granulocytes/100 WBC (Bld) 0.3 % 0.0-0.5 [facility] Leukocytes [#/volume] correc gali for nucleated erythrocytes in Blood by Automated counon 03-27-2024 WBC corrected for nucl RBC Auto (Bld) [#/Vol] 9.7 10 3/uL 4.0-11.0 [facility] Lymphocytes Auto (Bld) [#/Vo l]on 03-27-2024 Lymphocytes (Bld) [#/Vol] 1.3 10 3/uL 1.2-3.8 [facility] Lymphocytes/100 WBC Auto (Bl d)on 03-27-2024 Lymphocytes/100 WBC (Bld) 13.3 % Low 20.5-60.0 [facility] MCH Auto (RBC) [Entitic mass ]on 03-27-2024 MCH (RBC) [Entitic mass] 29.2 pg 26.7-34.0 [facility] MCHC Auto (RBC) [Mass/Vol]on 03-27-2024 MCHC (RBC) [Mass/Vol] 32.4 g/dL 29.9-35.2 [facility] MCV Auto (RBC) [Entitic vol] on 03-27-2024 MCV (RBC) [Entitic vol] 90.3 fL 81.0-99.0 [facility] Monocytes Auto (Bld) [#/Vol] on 03-27-2024 Monocytes (Bld) [#/Vol] 0.8 10 3/uL 0.3-0.8 [facility] Monocytes/100 WBC Auto (Bld) on 03-27-2024 Monocytes/100 WBC (Bld) 8.4 % 1.7-12.0 [facility] Neutrophils Auto (Bld) [#/Vo l]on 03-27-2024 Neutrophils (Bld) [#/Vol] 7.4 10 3/uL High 1.4-6.5 [facility] Neutrophils/100 WBC Auto (Bl d)on 03-27-2024 Neutrophils/100 WBC (Bld) 76.1 % High 43.0-75.0 [facility] No Panel Informationon 03-27 Eosinophils # (Auto) 0.1 10 3/uL 0.0-0.7 [facility] Immature Granulocyte # (Auto) 0.03 10 3/uL 0.00-0.03 [facility] 4572.0 pg/mL High <=1800.0 [facility] 1.7 mg/dL Low 1.8-2.4 [facility] 11.2 % High 4.5-6.2 [facility] 2.6 g/dL Low 3.4-5.0 [facility] 0.1 10 3/uL 0.0-0.7 [facility] 89 U/L 46-116 [facility] 12 U/L Low 14-59 [facility] 9 U/L Low 15-37 [facility] 28.6 [facility] 0.03 10 3/uL 0.00-0.03 [facility] 34.0 mg/dL High 7.0-18.0 [facility] 0.3 % 0.0-0.5 [facility] 9.1 mg/dL 8.5-10.1 [facility] 99 mmol/L 98-107 [facility] 28.8 mmol/L 21.0-32.0 [facility] 1.19 mg/dL High 0.55-1.02 [facility] 53 Low >=60 [facility] 273 mg/dL High 74-106 [facility] 3.6 mmol/L 3.5-5.1 [facility] 135 mmol/L Low 136-145 [facility] 0.9 mg/dL 0.2-1.0 [facility] 7.2 g/dL 6.4-8.2 [facility] Platelet mean volume Auto (B ld) [Entitic vol]on 03-27-2024 Platelet mean volume (Bld) [Entitic vol] 10.6 fL 9.5-13.5 [facility] Platelets Auto (Bld) [#/Vol] on 03-27-2024 Platelets (Bld) [#/Vol] 204 10 3/uL 150-450 [facility] RBC Auto (Bld) [#/Vol]on RBC (Bld) [#/Vol] 4.14 10 6/uL Low 4.20-5.40 [facility] Serum or plasma albumin/glob ulin mass ratioon 03-27-2024 Albumin/Globulin [Mass ratio] 0.6 {ratio} [facility] Serum or plasma anion gap de terminationon 03-27-2024 Anion gap [Moles/Vol] 10.8 mmol/L [facility] Basophils Auto (Bld) [#/Vol] on 03-26-2024 Basophils (Bld) [#/Vol] 0.1 10 3/uL 0.0-0.1 [facility] Basophils/100 WBC Auto (Bld) on 03-26-2024 Basophils/100 WBC (Bld) 0.8 % 0.2-2.0 [facility] Eosinophils/100 WBC Auto (Bl d)on 03-26-2024 Eosinophils/100 WBC (Bld) 1.2 % 0.9-7.0 [facility] Erythrocyte distribution wid th Auto (RBC) [Ratio]on 03-26-2024 Erythrocyte distribution width (RBC) [Ratio] 14.5 % 11.0-15.0 [facility] Estimated glomerular filtrat ion rate (GFR) non- Americanon 03-26-2024 GFR/1.73 sq M.predicted among non-blacks MDRD (S/P/Bld) [Vol rate/Area] 46 mL/min/{1.73_m2} Low >=60 [facility] Glucose mean value [Mass/vol ume] in Blood Estimated from glycated hemoglobinon 03-26-2024 Average glucose Estimated from glycated hemoglobin (Bld) [Mass/Vol] 275 mg/dL [facility] Hematocrit Auto (Bld) [Volum e fraction]on 03-26-2024 Hematocrit (Bld) [Volume fraction] 40.1 % 36.0-48.0 [facility] Hemoglobin [Mass/volume] in Bloodon 03-26-2024 Hemoglobin (Bld) [Mass/Vol] 12.7 g/dL 12.0-16.0 [facility] Laboratory - Chemistry and C hemistry - challengeon 03-26-2024 Calcium [Mass/Vol] 9.1 mg/dL 8.5-10.1 [facility] Chloride [Moles/Vol] 102 mmol/L 98-107 [facility] CO2 [Moles/Vol] 28.5 mmol/L 21.0-32.0 [facility] Creatinine [Mass/Vol] 1.14 mg/dL High 0.55-1.02 [facility] Free T4 [Mass/Vol] 1.29 ng/dL 0.76-1.46 [facility] GFR/1.73 sq M.predicted MDRD (S/P/Bld) [Vol rate/Area] 56 mL/min/{1.73_m2} Low >=60 [facility] Glucose [Mass/Vol] 246 mg/dL High 74-106 [facility] Natriuretic peptide B (Bld) [Mass/Vol] 2890.0 pg/mL High <=1800.0 [facility] Comment on above: RESULTS CALLED TO YOEL ROBIN RN @BY Alla Kunz 0556 Potassium [Moles/Vol] 4.3 mmol/L 3.5-5.1 [facility] Sodium [Moles/Vol] 136 mmol/L 136-145 [facility] TSH Qn 6.001 m[IU]/L High 0.358-3.740 [facility] Urea nitrogen [Mass/Vol] 35.0 mg/dL High 7.0-18.0 [facility] Urea nitrogen/Creatinine [Mass ratio] 30.7 mg/mg [facility] Laboratory - Hematology and Cell countson 03-26-2024 HbA1c (Bld) [Mass fraction] 11.2 % High 4.5-6.2 [facility] Comment on above: ADA RECOMMENDED LIMI T 4.0 - 6.0ADA THERAPEUTIC TARGET < 7.0ACTION SUGGESTED> 7.0 Immature granulocytes/100 WBC (Bld) 0.2 % 0.0-0.5 [facility] Leukocytes [#/volume] correc gali for nucleated erythrocytes in Blood by Automated counon 03-26-2024 WBC corrected for nucl RBC Auto (Bld) [#/Vol] 8.3 10 3/uL 4.0-11.0 [facility] Lymphocytes Auto (Bld) [#/Vo l]on 03-26-2024 Lymphocytes (Bld) [#/Vol] 1.4 10 3/uL 1.2-3.8 [facility] Lymphocytes/100 WBC Auto (Bl d)on 03-26-2024 Lymphocytes/100 WBC (Bld) 16.5 % Low 20.5-60.0 [facility] MCH Auto (RBC) [Entitic mass ]on 03-26-2024 MCH (RBC) [Entitic mass] 29.1 pg 26.7-34.0 [facility] MCHC Auto (RBC) [Mass/Vol]on 03-26-2024 MCHC (RBC) [Mass/Vol] 31.7 g/dL 29.9-35.2 [facility] MCV Auto (RBC) [Entitic vol] on 03-26-2024 MCV (RBC) [Entitic vol] 92.0 fL 81.0-99.0 [facility] Monocytes Auto (Bld) [#/Vol] on 03-26-2024 Monocytes (Bld) [#/Vol] 0.7 10 3/uL 0.3-0.8 [facility] Monocytes/100 WBC Auto (Bld) on 03-26-2024 Monocytes/100 WBC (Bld) 7.9 % 1.7-12.0 [facility] Neutrophils Auto (Bld) [#/Vo l]on 03-26-2024 Neutrophils (Bld) [#/Vol] 6.1 10 3/uL 1.4-6.5 [facility] Neutrophils/100 WBC Auto (Bl d)on 03-26-2024 Neutrophils/100 WBC (Bld) 73.4 % 43.0-75.0 [facility] No Panel Informationon 03-26 Eosinophils # (Auto) 0.1 10 3/uL 0.0-0.7 [facility] Immature Granulocyte # (Auto) 0.02 10 3/uL 0.00-0.03 [facility] Troponin I High Sensitivity 12.4 pg/mL 4.0-51.3 [facility] Comment on above: CUT-OFF POINTS [...] AND CLINICAL INFORMATION. 1.29 ng/dL 0.76-1.46 [facility] 6.001 u[iU]/mL High 0.358-3.740 [facility] 2890.0 pg/mL High <=1800.0 [facility] 12.4 pg/mL 4.0-51.3 [facility] 11.2 % High 4.5-6.2 [facility] 30.7 [facility] 35.0 mg/dL High 7.0-18.0 [facility] 0.1 10 3/uL 0.0-0.7 [facility] 9.1 mg/dL 8.5-10.1 [facility] 102 mmol/L 98-107 [facility] 28.5 mmol/L 21.0-32.0 [facility] 1.14 mg/dL High 0.55-1.02 [facility] 0.02 10 3/uL 0.00-0.03 [facility] 56 Low >=60 [facility] 0.2 % 0.0-0.5 [facility] 246 mg/dL High 74-106 [facility] 4.3 mmol/L 3.5-5.1 [facility] 136 mmol/L 136-145 [facility] Platelet mean volume Auto (B ld) [Entitic vol]on 03-26-2024 Platelet mean volume (Bld) [Entitic vol] 10.8 fL 9.5-13.5 [facility] Platelets Auto (Bld) [#/Vol] on 03-26-2024 Platelets (Bld) [#/Vol] 225 10 3/uL 150-450 [facility] RBC Auto (Bld) [#/Vol]on RBC (Bld) [#/Vol] 4.36 10 6/uL 4.20-5.40 [facility] Serum or plasma anion gap de terminationon 03-26-2024 Anion gap [Moles/Vol] 9.8 mmol/L [facility] GI PANEL (PCR)on 03-06-2023 Adenovirus F 40/41 Not detected Normal NOT DETECTED [facility] Comment on above: Performed By: #### P OCGLUC #### [facility] [address] [address] [address] Kasia Nath Astrovirus Not detected Normal NOT DETECTED [facility] Comment on above: Performed By: #### P OCGLUC #### [facility] [address] [address] [address] Kasia Nath C. Diff toxin A/B Detected Critically abnormal NOT DETECTED [facility] Comment on above: Performed By: #### P OCGLUC #### [facility] [address] [address] [address] Kaisa Nath Campylobacter Detected Critically abnormal NOT DETECTED [facility] Comment on above: Performed By: #### P OCGLUC #### [facility] [address] [address] [address] Kasia Nath Cryptosporidium Not detected Normal NOT DETECTED [facility] Comment on above: Performed By: #### P OCGLUC #### [facility] [address] [address] [address] Kasia Nath Cyclos. Cayetanensis Not detected Normal NOT DETECTED [facility] Comment on above: Performed By: #### P OCGLUC #### [facility] [address] [place] [address] Dr. Kasia Nath E. Coli O157 Not Applicable Normal Not Applicable [facility] Comment on above: Performed By: #### P OCGLUC #### [facility] [address] [place] [address] Dr. Kasia Nath E. histolytica Not detected Normal NOT DETECTED [facility] Comment on above: Performed By: #### P OCGLUC #### [facility] [address] [place] [address] Dr. Kasia Nath EAEC Not detected Normal NOT DETECTED [facility] Comment on above: Performed By: #### P OCGLUC #### [facility] [address] [place] [address] Dr. Kasia Nath EIEC Not detected Normal NOT DETECTED [facility] Comment on above: Performed By: #### P OCGLUC #### [facility] [address] [place] [address] Dr. Kasia Nath EPEC Not detected Normal NOT DETECTED [facility] Comment on above: Performed By: #### P OCGLUC #### [facility] [address] [place] [address] Dr. Kasia Nath ETEC Not detected Normal NOT DETECTED [facility] Comment on above: Performed By: #### P OCGLUC #### [facility] [address] [place] [address] Dr. Kasia Nath G. Lamblia Not detected Normal NOT DETECTED [facility] Comment on above: Performed By: #### P OCGLUC #### [facility] [address] [place] [address] Dr. Kasia MOYERANEL CONTROLS PASSED Normal [facility] Comment on above: Performed By: #### P OCGLUC #### [facility] [address] [place] [address] Dr. Kasia Nath GIPNL JUNO HEADER GI PANEL BACTERIA Normal [facility] Comment on above: Performed By: #### P OCGLUC #### [facility] [address] [address] [address] Kasia GE ECOLI GI PANEL DIARRHEAGEN IC E.COLI / SHIGELLA Normal [facility] Comment on above: Performed By: #### P OCGLUC #### [facility] [address] [address] [address] Kasia GE INFO SEE BELOW Normal [facility] Comment on above: Result Comment: EAEC - Enteroaggregative E. Coli EPEC- Enteropathogenic E. Coli ETEC- Enterotoxigenic E. Coli lt/st STEC- Shigella-like toxin-producing E. Coli stx1/stx2 EIEC- Shigella/Enteroinvasive E. Coli Performed By: #### P OCGLUC #### [facility] [address] [address] [address] Kasia GE PARASITES GI PANEL PARASITES Normal [facility] Comment on above: Performed By: #### P OCGLUC #### [facility] [address] [address] [address] Kasia GE VIRUS GI PANEL VIRUSES Normal [facility] Comment on above: Performed By: #### P OCGLUC #### [facility] [address] [place] [address] Dr. Kasia Nath Norovirus GI/GII Not detected Normal NOT DETECTED [facility] Comment on above: Performed By: #### P OCGLUC #### [facility] [address] [address] [address] Kasia Nath P. Shigelloides Not detected Normal NOT DETECTED [facility] Comment on above: Performed By: #### P OCGLUC #### [facility] [address] [place] [address] Dr. Kasia Nath Rotavirus A Not detected Normal NOT DETECTED [facility] Comment on above: Performed By: #### P OCGLUC #### [facility] [address] [place] [address] Dr. Kasia Nath Salmonella Not detected Normal NOT DETECTED [facility] Comment on above: Performed By: #### P OCGLUC #### [facility] [address] [place] [address] Dr. Kasia Nath Sapovirus Not detected Normal NOT DETECTED [facility] Comment on above: Performed By: #### P OCGLUC #### [facility] [address] [place] [address] Dr. Kasia Nath STEC Not detected Normal NOT DETECTED [facility] Comment on above: Performed By: #### P OCGLUC #### [facility] [address] [place] [address] Dr. Kasia Nath Vibrio Not detected Normal NOT DETECTED [facility] Comment on above: Performed By: #### P OCGLUC #### [facility] [address] [place] [address] Dr. Kasia Nath Vibrio Cholera Not detected Normal NOT DETECTED [facility] Comment on above: Performed By: #### P OCGLUC #### [facility] [address] [place] [address] Dr. Kasia Nath Y. Enterocolitica Not detected Normal NOT DETECTED [facility] Comment on above: Performed By: #### P OCGLUC #### [facility] [address] [place] [address] Dr. Kasia Nath CBC AUTO DIFFon 02-14-2023 BASO # 0.0 103/ul Normal 0.0-0.1 [facility] Comment on above: Performed By: #### P OCGLUC #### [facility] [address] [place] [address] Dr. Kasia Nath Basophils/100 WBC (Bld) 0.5 % Normal 0.2-2.0 [facility] Comment on above: Performed By: #### P OCGLUC #### [facility] [address] [place] [address] Dr. Kasia Nath EO # 0.2 103/ul Normal 0.0-0.7 [facility] Comment on above: Performed By: #### P OCGLUC #### [facility] [address] [place] [address] Dr. Kasia Nath Eosinophils/100 WBC (Bld) 2.7 % Normal 0.9-7.0 [facility] Comment on above: Performed By: #### P OCGLUC #### [facility] [address] [place] [address] Dr. Kasia Nath Erythrocyte distribution width (RBC) [Ratio] 13.0 % Normal 11.0-15.0 [facility] Comment on above: Performed By: #### P OCGLUC #### [facility] [address] [place] [address] Dr. Kasia Nath Hematocrit (Bld) [Volume fraction] 35.9 % Critically low 36.0-48.0 [facility] Comment on above: Performed By: #### P OCGLUC #### [facility] [address] [place] [address] Dr. Kasia Nath Hemoglobin (Bld) [Mass/Vol] 12.0 g/dL Normal 12.0-16.0 [facility] Comment on above: Performed By: #### P OCGLUC #### [facility] [address] [place] [address] Dr. Kasia Nath IG # 0.02 10e3/ul Normal 0.00-0.03 [facility] Comment on above: Performed By: #### P OCGLUC #### [facility] [address] [place] [address] Dr. Kasia Nath IG % 0.3 % Normal 0.0-0.5 [facility] Comment on above: Performed By: #### P OCGLUC #### [facility] [address] [place] [address] Dr. Kasia Nath LYMPH # 1.8 103/ul Normal 1.2-3.8 [facility] Comment on above: Performed By: #### P OCGLUC #### [facility] [address] [place] [address] Dr. Kasia Nath Lymphocytes/100 WBC (Bld) 22.8 % Normal 20.5-60.0 [facility] Comment on above: Performed By: #### P OCGLUC #### [facility] [address] [place] [address] Dr. Kasia Nath MANUAL DIFF REQ NO Normal [facility] Comment on above: Performed By: #### P OCGLUC #### [facility] [address] [address] [address] Kasia Nath MCH (RBC) [Entitic mass] 29.4 pg Normal 26.7-34.0 [facility] Comment on above: Performed By: #### P OCGLUC #### [facility] [address] [place] [address] Dr. Kasia Nath MCHC (RBC) [Mass/Vol] 33.4 g/dL Normal 29.9-35.2 [facility] Comment on above: Performed By: #### P OCGLUC #### [facility] [address] [place] [address] Dr. Kasia Nath MCV (RBC) [Entitic vol] 88.0 fL Normal 81.0-99.0 [facility] Comment on above: Performed By: #### P OCGLUC #### [facility] [address] [place] [address] Dr. Kasia Nath MONO # 0.7 103/ul Normal 0.3-0.8 [facility] Comment on above: Performed By: #### P OCGLUC #### [facility] [address] [place] [address] Dr. Kasia Nath Monocytes/100 WBC (Bld) 9.3 % Normal 1.7-12.0 [facility] Comment on above: Performed By: #### P OCGLUC #### [facility] [address] [place] [address] Dr. Kasia Nath NEUT # 5.1 103/ul Normal 1.4-6.5 [facility] Comment on above: Performed By: #### P OCGLUC #### [facility] [address] [place] [address] Dr. Kasia Nath Neutrophils/100 WBC (Bld) 64.4 % Normal 43.0-75.0 [facility] Comment on above: Performed By: #### P OCGLUC #### [facility] [address] [place] [address] Dr. Kasia Nath Platelet mean volume (Bld) [Entitic vol] 11.7 fL Normal 9.5-13.5 [facility] Comment on above: Performed By: #### P OCGLUC #### [facility] [address] [address] [address] Kasia Nath PLT 175 103/ul Normal 150-450 [facility] Comment on above: Performed By: #### P OCGLUC #### [facility] [address] [address] [address] Kasia Nath RBC 4.08 106/ul Critically low 4.20-5.40 [facility] Comment on above: Performed By: #### P OCGLUC #### [facility] [address] [address] [address] Kasia Nath WBC 7.9 103/ul Normal 4.0-11.0 [facility] Comment on above: Performed By: #### P OCGLUC #### [facility] [address] [address] [address] Kasia Nath LIPASEon 02-14-2023 Lipase [Catalytic activity/Vol] 51.0 U/L Critically low 73.0-393.0 [facility] Comment on above: Performed By: #### L IPA, CMP ####[facility] [address] [address]DrDoreen Nath PROF 14(COMP METB)on 023 Albumin [Mass/Vol] 2.8 g/dL Critically low 3.4-5.0 [facility] Comment on above: Performed By: #### L IPA, CMP ####[facility] [address] [address]DrDoreen Nath Albumin/Globulin [Mass ratio] 0.7 {ratio} Normal [facility] Comment on above: Performed By: #### L IPA, CMP ####[facility] [address] [address]DrDoreen Nath ALP [Catalytic activity/Vol] 90 U/L Normal 46-116 [facility] Comment on above: Performed By: #### L IPA, CMP ####[facility] [address] [address]DrDoreen Nath ALT [Catalytic activity/Vol] 15 U/L Normal 14-59 [facility] Comment on above: Performed By: #### L IPA, CMP ####[facility] [address] [address]Dr. Kasia Nath Anion gap [Moles/Vol] 15.6 mmol/L Normal [facility] Comment on above: Performed By: #### L IPA, CMP ####[facility] [address] [address]Dr. Kasia Nath AST [Catalytic activity/Vol] 9 U/L Critically low 15-37 [facility] Comment on above: Performed By: #### L IPA, CMP ####[facility] [address] [place], [place] [address]Dr. Kasia Nath Bilirubin [Mass/Vol] 0.4 mg/dL Normal 0.2-1.0 [facility] Comment on above: Performed By: #### L IPA, CMP ####[facility] [address] [place], [place] [address]Dr. Kasia Nath Calcium [Mass/Vol] 9.1 mg/dL Normal 8.5-10.1 [facility] Comment on above: Performed By: #### L IPA, CMP ####[facility] [address] [place], [place] [address]Dr. Fartuncristy Nath Chloride [Moles/Vol] 104 mmol/L Normal 98-107 [facility] Comment on above: Performed By: #### L IPA, CMP ####[facility] [address] [place], [place] [address]Dr. Kasia Nath CO2 [Moles/Vol] 17.0 mmol/L Critically low 21.0-32.0 [facility] Comment on above: Performed By: #### L IPA, CMP ####[facility] [address] [place], [place] [address]Dr. Kasia Portillo Creatinine [Mass/Vol] 1.78 mg/dL Critically high 0.55-1.02 [facility] Comment on above: Performed By: #### L IPA, CMP ####[facility] [address] [place], [place] [address]Dr. Kasia Portillo EGFR-AF ARMENIAN 34 mL/min/1.73m2 Critically low >=60 [facility] Comment on above: Performed By: #### L IPA, CMP ####[facility] [address] [place], [place] [address]Dr. Kasia Nath EGFR-NON AF ARMENIAN 28 mL/min/1.73m2 Critically low >=60 [facility] Comment on above: Performed By: #### L IPA, CMP ####[facility] [address] [place], [place] [address]Dr. Kasia Nath Globulin (S) [Mass/Vol] 4.3 g/dL Normal [facility] Comment on above: Performed By: #### L IPA, CMP ####[facility] [address] [place], [place] [address]Dr. Kasia Nath Glucose [Mass/Vol] 248 mg/dL Critically high 74-106 [facility] Comment on above: Performed By: #### L IPA, CMP ####[facility] [address] [place], [place] [address]Dr. Kasia Portillo Potassium [Moles/Vol] 4.6 mmol/L Normal 3.5-5.1 [facility] Comment on above: Performed By: #### L IPA, CMP ####[facility] [address] [place], [place] [address]Dr. Kasia Nath Protein [Mass/Vol] 7.1 g/dL Normal 6.4-8.2 [facility] Comment on above: Performed By: #### L IPA, CMP ####[facility] [address] [place], [place] [address]Dr. Kasia Nath Sodium [Moles/Vol] 132 mmol/L Critically low 136-145 [facility] Comment on above: Performed By: #### L IPA, CMP ####[facility] [address] [place], [place] [address]Dr. Kasia Nath Urea nitrogen [Mass/Vol] 78.0 mg/dL Critically high 7.0-18.0 [facility] Comment on above: Performed By: #### L IPA, CMP ####[facility] [address] [address]Dr. Kasia Nath Urea nitrogen/Creatinine [Mass ratio] 43.8 mg/mg Normal [facility] Comment on above: Performed By: #### L IPA, CMP ####[facility] [address] [id number][address] aKsia Nath CBC AUTO DIFFon 02-13-2023 BASO # 0.0 103/ul Normal 0.0-0.1 [facility] Comment on above: Performed By: #### C BC ####[facility] [address] [place], [place] [id number]. Kasia Nath Basophils/100 WBC (Bld) 0.5 % Normal 0.2-2.0 [facility] Comment on above: Performed By: #### C BC ####[facility] [address] [place], [place] [address]Dr. Kasia Nath EO # 0.1 103/ul Normal 0.0-0.7 [facility] Comment on above: Performed By: #### C BC ####[facility] [address] [place], [place] [address]Dr. Kasia Nath Eosinophils/100 WBC (Bld) 1.0 % Normal 0.9-7.0 [facility] Comment on above: Performed By: #### C BC ####[facility] We[address] [place], [place] [id number]. Kasia Nath Erythrocyte distribution width (RBC) [Ratio] 12.8 % Normal 11.0-15.0 [facility] Comment on above: Performed By: #### C BC ####[facility] Giert[address] [place], [place] [id number]. Kasia Nath Hematocrit (Bld) [Volume fraction] 38.5 % Normal 36.0-48.0 [facility] Comment on above: Performed By: #### C BC ####[facility] [address] [place], [place] [address]Dr. Kasia Nath Hemoglobin (Bld) [Mass/Vol] 13.0 g/dL Normal 12.0-16.0 [facility] Comment on above: Performed By: #### C BC ####[facility] [address] [place] [id number]. Kasia Nath IG # 0.02 10e3/ul Normal 0.00-0.03 [facility] Comment on above: Performed By: #### C BC ####[facility] [address] [place] [id number]. Kasia Nath IG % 0.2 % Normal 0.0-0.5 [facility] Comment on above: Performed By: #### C BC ####[facility] [address] [place] [address]Dr. Kasia Nath LYMPH # 0.9 103/ul Critically low 1.2-3.8 [facility] Comment on above: Performed By: #### C BC ####[facility] Ionpx[address] [place], [place] [address]Dr. Kasia Nath Lymphocytes/100 WBC (Bld) 10.0 % Critically low 20.5-60.0 [facility] Comment on above: Performed By: #### C BC ####[facility] [address] [place] [address]Dr. Kasia Nath MANUAL DIFF REQ NO Normal [facility] Comment on above: Performed By: #### C BC ####[facility] Pr[address] [place], [place] [address]Dr. Kasia Nath MCH (RBC) [Entitic mass] 29.5 pg Normal 26.7-34.0 [facility] Comment on above: Performed By: #### C BC ####[facility] Ph[address]fcksoph[address] [place], [place] [address]Dr. Kasia Nath MCHC (RBC) [Mass/Vol] 33.8 g/dL Normal 29.9-35.2 [facility] Comment on above: Performed By: #### C BC ####[facility] [address] [place] [address]Dr. Kasia Portillo MCV (RBC) [Entitic vol] 87.5 fL Normal 81.0-99.0 [facility] Comment on above: Performed By: #### C BC ####[facility] [address] [place] [id number]. Kasia Nath MONO # 0.5 103/ul Normal 0.3-0.8 [facility] Comment on above: Performed By: #### C BC ####[facility] [address] [place] [id number]. Kasia Nath Monocytes/100 WBC (Bld) 5.7 % Normal 1.7-12.0 [facility] Comment on above: Performed By: #### C BC ####[facility] [address] [place] [id number]. Kasia Nath NEUT # 7.2 103/ul Critically high 1.4-6.5 [facility] Comment on above: Performed By: #### C BC ####[facility] [address] [place] [address]Dr. Kasia Nath Neutrophils/100 WBC (Bld) 82.6 % Critically high 43.0-75.0 [facility] Comment on above: Performed By: #### C BC ####[facility] [address] [place] [id number]. Kasia Nath Platelet mean volume (Bld) [Entitic vol] 11.8 fL Normal 9.5-13.5 [facility] Comment on above: Performed By: #### C BC ####[facility] [address] [place] [id number]. Kasia Nath PLT 187 103/ul Normal 150-450 [facility] Comment on above: Performed By: #### C BC ####[facility] [address] [place], [place] [address]Dr. Kasia Nath RBC 4.40 106/ul Normal 4.20-5.40 [facility] Comment on above: Performed By: #### C BC ####[facility] [address] [place] [address]Dr. Kasia Nath WBC 8.8 103/ul Normal 4.0-11.0 [facility] Comment on above: Performed By: #### C BC ####[facility] [address] [place], [place] [address] ABD/PELVIS WO CONon 02-13 CT [...] JACOB MCCURDY Date: 2023-02-13 14:40 Normal [facility] CULTURE URINEon 02-13-2023 CULTURE URINE Culture Observations : LIGHT GROWTH OF MIXED GENITAL VON. NO POTENTIAL PATHOGENS SEEN. Normal [facility] Comment on above: Performed By: #### U RCX ####[facility] [address] [place], [place] [address]KpDoreen Nath [facility]on SARS-CoV-2 (COVID-19) RNA FERN+probe Ql (Unsp spec) Not detected Normal NOT DETECTED [facility] Comment on above: Result [...] for this test is supported by the Ground Support Agent of Health and Human Service's declaration that [...] used). Performed By: #### P OCGLUC #### [facility] [address] [place] [address] Dr. Kasia Nath GI PANEL (PCR)on 02-13-2023 Adenovirus F 40/41 Not detected Normal NOT DETECTED [facility] Comment on above: Performed By: #### C BC #### [facility] [address] [place] [address] Dr. Kasia Nath Astrovirus Not detected Normal NOT DETECTED [facility] Comment on above: Performed By: #### C BC #### [facility] [address] [place] [address] Dr. Kasia Del Real. Diff toxin A/B Not detected Normal NOT DETECTED [facility] Comment on above: Performed By: #### C BC #### [facility] [address] [place] [address] Dr. Kasia Nath Campylobacter Not detected Normal NOT DETECTED [facility] Comment on above: Performed By: #### C BC #### [facility] [address] [place] [address] Dr. Kasia Nath Cryptosporidium Not detected Normal NOT DETECTED [facility] Comment on above: Performed By: #### C BC #### [facility] [address] [place] [address] Dr. Kasia Nath Cyclos. Cayetanensis Not detected Normal NOT DETECTED [facility] Comment on above: Performed By: #### C BC #### [facility] [address] [place] [address] Dr. Kasia Nath E. Coli O157 Not Applicable Normal Not Applicable [facility] Comment on above: Performed By: #### C BC #### [facility] [address] [place] [address] Dr. Kasia Nath E. histolytica Not detected Normal NOT DETECTED [facility] Comment on above: Performed By: #### C BC #### [facility] [address] [place] [address] Dr. Kasia Nath EAEC Not detected Normal NOT DETECTED [facility] Comment on above: Performed By: #### C BC #### [facility] [address] [place] [address] Dr. Kasia Nath EIEC Not detected Normal NOT DETECTED [facility] Comment on above: Performed By: #### C BC #### [facility] [address] [place] [address] Dr. Kasia Nath EPEC Not detected Normal NOT DETECTED [facility] Comment on above: Performed By: #### C BC #### [facility] [address] [place] [address] Dr. Kasia Nath ETEC Not detected Normal NOT DETECTED [facility] Comment on above: Performed By: #### C BC #### [facility] [address] [place] [address] Dr. Kasia Nath G. Lamblia Not detected Normal NOT DETECTED [facility] Comment on above: Performed By: #### C BC #### [facility] [address] [place] [address] Dr. Kasia MOYERANEL CONTROLS PASSED Normal [facility] Comment on above: Performed By: #### C BC #### [facility] [address] [place] [address] Dr. Kasia THOMPSON JUNO HEADER GI PANEL BACTERIA Normal [facility] Comment on above: Performed By: #### C BC #### [facility] [address] [place] [address] Dr. Kasia THOMPSONHD ECOLI GI PANEL DIARRHEAGEN IC E.COLI / SHIGELLA Normal [facility] Comment on above: Performed By: #### C BC #### [facility] [address] [place] [address] Dr. Kasia GE INFO SEE BELOW Normal [facility] Comment on above: Result Comment: EAEC - Enteroaggregative E. Coli EPEC- Enteropathogenic E. Coli ETEC- Enterotoxigenic E. Coli lt/st STEC- Shigella-like toxin-producing E. Coli stx1/stx2 EIEC- Shigella/Enteroinvasive E. Coli Performed By: #### C BC #### [facility] [address] [place] [address] Dr. Kasia GE PARASITES GI PANEL PARASITES Normal [facility] Comment on above: Performed By: #### C BC #### [facility] [address] [place] [address] Dr. Kasia GE VIRUS GI PANEL VIRUSES Normal [facility] Comment on above: Performed By: #### C BC #### [facility] [address] [place] [address] Dr. Kasia Nath Norovirus GI/GII Not detected Normal NOT DETECTED [facility] Comment on above: Performed By: #### C BC #### [facility] [address] [place] [address] Dr. Kasia Nath P. Shigelloides Not detected Normal NOT DETECTED [facility] Comment on above: Performed By: #### C BC #### [facility] [address] [place] [address] Dr. Kasia Nath Rotavirus A Not detected Normal NOT DETECTED [facility] Comment on above: Performed By: #### C BC #### [facility] [address] [place] [address] Dr. Kasia Nath Salmonella Not detected Normal NOT DETECTED [facility] Comment on above: Performed By: #### C BC #### [facility] [address] [place] [address] Dr. Kasia Nath Sapovirus Not detected Normal NOT DETECTED [facility] Comment on above: Performed By: #### C BC #### [facility] [address] [place] [address] Dr. Kasia Nath STEC Not detected Normal NOT DETECTED [facility] Comment on above: Performed By: #### C BC #### [facility] [address] [place] [address] Dr. Kasia Nath Vibrio Not detected Normal NOT DETECTED [facility] Comment on above: Performed By: #### C BC #### [facility] [address] [place] [address] Dr. Kasia Nath Vibrio Cholera Not detected Normal NOT DETECTED [facility] Comment on above: Performed By: #### C BC #### [facility] [address] [place] [address] Dr. Kasia Nath Y. Enterocolitica Not detected Normal NOT DETECTED [facility] Comment on above: Performed By: #### C BC #### [facility] [address] [place] [address] Dr. Kasia Nath LACTATE/LACTIC ACIDon 2022 Lactate [Moles/Vol] 1.7 mmol/L Normal 0.4-2.0 [facility] Comment on above: Performed By: #### L ACT ####[facility] [address] [place], [place] [address]Dr. Kasia Nath LIPASEon 02-13-2023 Lipase [Catalytic activity/Vol] 82.0 U/L Normal 73.0-393.0 [facility] Comment on above: Performed By: #### L IPA, CMP #### [facility] [address] [place] [address] Dr. Kasia Nath POINT OF CARE GLUCOSEon Glucose [Mass/Vol] 229 mg/dL Critically high [facility]106 [facility] Comment on above: Performed By: #### P OCGLUC #### [facility] [address] [place] [address] Dr. Kasia Nath Glucose [Mass/Vol] 474 mg/dL Critically high -106 [facility] Comment on above: Performed By: #### P OCGLUC #### [facility] [address] [address] [address] Kasia Nath PROF 14(COMP METB)on 023 Albumin [Mass/Vol] 3.4 g/dL Normal 3.4-5.0 [facility] Comment on above: Performed By: #### L IPA, CMP #### [facility] [address] [place] [address] Dr. Kasia Nath Albumin/Globulin [Mass ratio] 0.7 {ratio} Normal [facility] Comment on above: Performed By: #### L IPA, CMP #### [facility] [address] [place] [address] Dr. Kasia Nath ALP [Catalytic activity/Vol] 106 U/L Normal 46-116 [facility] Comment on above: Performed By: #### L IPA, CMP #### [facility] [address] [place] [address] Dr. Kasia Nath ALT [Catalytic activity/Vol] 21 U/L Normal 14-59 [facility] Comment on above: Performed By: #### L IPA, CMP #### [facility] [address] [place] [address] Dr. Kasia Nath Anion gap [Moles/Vol] 17.7 mmol/L Normal [facility] Comment on above: Performed By: #### L IPA, CMP #### [facility] [address] [place] [address] Dr. Kasia Nath AST [Catalytic activity/Vol] 11 U/L Critically low 15-37 [facility] Comment on above: Performed By: #### L IPA, CMP #### [facility] [address] [place] [address] Dr. Kasia Nath Bilirubin [Mass/Vol] 0.5 mg/dL Normal 0.2-1.0 [facility] Comment on above: Performed By: #### L IPA, CMP #### [facility] [address] [place] [address] Dr. Kasia Nath Calcium [Mass/Vol] 9.6 mg/dL Normal 8.5-10.1 [facility] Comment on above: Performed By: #### L IPA, CMP #### [facility] [address] [address] [address] Kasia Nath Chloride [Moles/Vol] 99 mmol/L Normal 98-107 [facility] Comment on above: Performed By: #### L IPA, CMP #### [facility] [address] [address] [address] Kasia Nath CO2 [Moles/Vol] 20.6 mmol/L Critically low 21.0-32.0 [facility] Comment on above: Performed By: #### L IPA, CMP #### [facility] [address] [address] [address] Kasia Nath Creatinine [Mass/Vol] 2.14 mg/dL Critically high 0.55-1.02 [facility] Comment on above: Performed By: #### L IPA, CMP #### [facility] [address] [place] [address] Dr. Kasia Nath EGFR-AF ARMENIAN 27 mL/min/1.73m2 Critically low >=60 [facility] Comment on above: Performed By: #### L IPA, CMP #### [facility] [address] [place] [address] Dr. Kasia aNth EGFR-NON AF ARMENIAN 22 mL/min/1.73m2 Critically low >=60 [facility] Comment on above: Performed By: #### L IPA, CMP #### [facility] [address] [address] [address] Kasia Nath Globulin (S) [Mass/Vol] 4.8 g/dL Normal [facility] Comment on above: Performed By: #### L IPA, CMP #### [facility] [address] [address] [address] Kasia Nath Glucose [Mass/Vol] 498 mg/dL Critically high 74-106 [facility] Comment on above: Performed By: #### L IPA, CMP #### [facility] [address] [address] [address] Kasai Nath Potassium [Moles/Vol] 5.3 mmol/L Critically high 3.5-5.1 [facility] Comment on above: Performed By: #### L IPA, CMP #### [facility] [address] [address] [address] Kasia Nath Protein [Mass/Vol] 8.2 g/dL Normal 6.4-8.2 [facility] Comment on above: Performed By: #### L IPA, CMP #### [facility] [address] [address] [address] Kasia Nath Sodium [Moles/Vol] 132 mmol/L Critically low 136-145 Th [facility] Comment on above: Performed By: #### L IPA, CMP #### [facility] [address] [address] [address] Kasia Nath Urea nitrogen [Mass/Vol] 86.0 mg/dL Critically high 7.0-18.0 [facility] Comment on above: Performed By: #### L IPA, CMP #### [facility] [address] [address] [address] Kasia Nath Urea nitrogen/Creatinine [Mass ratio] 40.2 mg/mg Normal [facility] Comment on above: Performed By: #### L IPA, CMP #### [facility] [address] [address] [address] Kasia Nath UA RANDOM W/MICROSCOPICon BACTERIA TRACE Abnormal NONE SEEN [facility] Comment on above: Performed By: #### U AMIC ####[facility] [address] [place] [address]Dr. Kasia Nath Bilirubin Ql (U) Negative Normal NEGATIVE [facility] Comment on above: Performed By: #### U AMIC ####[facility] [address] [place] [address]DrDoreen Nath CAST SEEN Abnormal NONE SEEN [facility] Comment on above: Performed By: #### U AMIC ####[facility] [address] [place] [address]DrDoreen Nath Clarity (U) CLEAR Normal CLEAR [facility] Comment on above: Performed By: #### U AMIC ####[facility] [address] [place] [address]Dr. Kasia Nath Color (U) LT. YELLOW Normal YELLOW [facility] Comment on above: Performed By: #### U AMIC ####[facility] [address] [place] [address]Dr. Kasia Nath Crystals LM Nom (Urine sed) NONE SEEN Normal NONE SEEN [facility] Comment on above: Performed By: #### U AMIC ####[facility] [address] [place] [address]Dr. Kasia Nath Epithelial cells LM Ql (Urine sed) FEW Abnormal NONE SEEN /RARE [facility] Comment on above: Performed By: #### U AMIC ####[facility] [address] [place], [place] [address]Dr. Kasia Nath Glucose Ql (U) >1000 Abnormal NEGATIVE The [facility] Comment on above: Performed By: #### U AMIC ####[facility] [address] [place], [place] [address]Dr. Kasia Nath Hemoglobin Ql (U) Negative Normal NEGATIVE The [facility] Comment on above: Performed By: #### U AMIC ####[facility] [address] [place], [place] [address]Dr. Kasia Nath HYALINE CAST RARE Normal [facility] Comment on above: Performed By: #### U AMIC ####[facility] [address] [place], [place] [address]Dr. Kasia Nath Ketones Ql (U) Negative Normal NEGATIVE [facility] Comment on above: Performed By: #### U AMIC ####[facility] [address] [place], [place] [address]Dr. Kasia Nath LEUKOCYTES Negative Normal NEGATIVE [facility] Comment on above: Performed By: #### U AMIC ####[facility] [address] [place], [place] [address]Dr. Kasia Nath MUCOUS NONE SEEN Normal NONE SEEN [facility] Comment on above: Performed By: #### U AMIC ####[facility] [address] [place], [place] [address]Dr. Kasia Nath Nitrite Ql (U) Negative Normal NEGATIVE [facility] Comment on above: Performed By: #### U AMIC ####[facility] [address] [place] [address]Dr. Kasia Nath pH (U) 5.5 [pH] Normal 5-9 [facility] Comment on above: Performed By: #### U AMIC ####[facility] [address] [place] [address]Dr. Kasia Nath RBC 0-2 Normal 0-2 [facility] Comment on above: Performed By: #### U AMIC ####[facility] [address] [place] [address]Dr. Kasia Nath SPEC GRAVITY 1.015 Normal 1.005-<=1.0 25 [facility] Comment on above: Performed By: #### U AMIC ####[facility] [address] [place], [place] [address]Dr. Kasia Nath UA PROTEIN TRACE Normal NEGATIVE/ TRACE [facility] Comment on above: Performed By: #### U AMIC ####[facility] [address] [place], [place] [address]Dr. Kasia Nath Urobilinogen Qn (U) 0.2 {Meka'U}/dL Normal 0.2 - 1. 0 [facility] Comment on above: Performed By: #### U AMIC ####[facility] [address] [place], [place] [address]Dr. Kasia Nath WBC 0-2 Abnormal NONE SEEN [facility] Comment on above: Performed By: #### U AMIC ####[facility] [address] [place], [place] [address]Dr. Kasia Nath BNPon 01-16-2023 Natriuretic peptide B (Bld) [Mass/Vol] 1675.0 pg/mL Normal <=1,800.0 [facility] Comment on above: Performed By: #### B MAINTENANCE TEAM MEMBER, CMP ####[facility] [address] [place], [place] [address]Dr. Kasia Nath PROF 14(COMP METB)on 023 Albumin [Mass/Vol] 3.4 g/dL Normal 3.4-5.0 [facility] Comment on above: Performed By: #### B MAINTENANCE TEAM MEMBER, CMP ####[facility] [address] [place] [address]Dr. Kasia Nath Albumin/Globulin [Mass ratio] 0.8 {ratio} Normal [facility] Comment on above: Performed By: #### B MAINTENANCE TEAM MEMBER, CMP ####[facility] [address] [place] [address]Dr. Kasia Nath ALP [Catalytic activity/Vol] 99 U/L Normal 46-116 [facility] Comment on above: Performed By: #### B MAINTENANCE TEAM MEMBER, CMP ####[facility] [address] [place] [address]Dr. Kasia Nath ALT [Catalytic activity/Vol] 18 U/L Normal 14-59 [facility] Comment on above: Performed By: #### B MAINTENANCE TEAM MEMBER, CMP ####[facility] [address] [place] [address]Dr. Kasia Nath Anion gap [Moles/Vol] 10.6 mmol/L Normal [facility] Comment on above: Performed By: #### B MAINTENANCE TEAM MEMBER, CMP ####[facility] [address] [place], [place] [address]Dr. Kasia Nath AST [Catalytic activity/Vol] 15 U/L Normal 15-37 [facility] Comment on above: Performed By: #### B MAINTENANCE TEAM MEMBER, CMP ####[facility] [address] [place] [address]Dr. Kasia Nath Bilirubin [Mass/Vol] 0.5 mg/dL Normal 0.2-1.0 [facility] Comment on above: Performed By: #### B MAINTENANCE TEAM MEMBER, CMP ####[facility] [address] [place] [address]Dr. Kasia Nath Calcium [Mass/Vol] 9.1 mg/dL Normal 8.5-10.1 [facility] Comment on above: Performed By: #### B MAINTENANCE TEAM MEMBER, CMP ####[facility] [address] [place] [address]Dr. Kasia Nath Chloride [Moles/Vol] 98 mmol/L Normal 98-107 [facility] Comment on above: Performed By: #### B MAINTENANCE TEAM MEMBER, CMP ####[facility] [address] [place], [place] [address]Dr. Fartuncristy Portillo CO2 [Moles/Vol] 30.4 mmol/L Normal 21.0-32.[address] [facility] Comment on above: Performed By: #### B MAINTENANCE TEAM MEMBER, CMP ####[facility] [address] [place], [place] [address]Dr. Kasia Nath Creatinine [Mass/Vol] 1.44 mg/dL Critically high 0.55-1.02 [facility] Comment on above: Performed By: #### B MAINTENANCE TEAM MEMBER, CMP ####[facility] [address] [place], [place] [address]Dr. Kasia Nath EGFR-AF ARMENIAN 43 mL/min/1.73m2 Critically low >=60 [facility] Comment on above: Performed By: #### B MAINTENANCE TEAM MEMBER, CMP ####[facility] [address] [place], [place] [address]Dr. Kasia Nath EGFR-NON AF ARMENIAN 35 mL/min/1.73m2 Critically low >=60 [facility] Comment on above: Performed By: #### B MAINTENANCE TEAM MEMBER, CMP ####[facility] [address] [place], [place] [address]Dr. Kasia Nath Globulin (S) [Mass/Vol] 4.4 g/dL Normal [facility] Comment on above: Performed By: #### B MAINTENANCE TEAM MEMBER, CMP ####[facility] [address] [address] [place], [place] [address]Dr. Kasia Nath Glucose [Mass/Vol] 401 mg/dL Critically high 74-106 [facility] Comment on above: Performed By: #### B MAINTENANCE TEAM MEMBER, CMP ####[facility] [address] [place], [place] [address]Dr. Kasia Nath Potassium [Moles/Vol] 5.0 mmol/L Normal 3.5-5.1 [facility] Comment on above: Performed By: #### B MAINTENANCE TEAM MEMBER, CMP ####[facility] [address] [place], [place] [address]Dr. Fartuncristy Nath Protein [Mass/Vol] 7.8 g/dL Normal 6.4-8.2 [facility] Comment on above: Performed By: #### B MAINTENANCE TEAM MEMBER, CMP ####[facility] [address] [place] [address]Dr. Kasia Nath Sodium [Moles/Vol] 134 mmol/L Critically low 136-145 [facility] Comment on above: Performed By: #### B MAINTENANCE TEAM MEMBER, CMP ####[facility] [address] [place] [address]Dr. Kasia Nath Urea nitrogen [Mass/Vol] 46.0 mg/dL Critically high 7.0-18.0 [facility] Comment on above: Performed By: #### B MAINTENANCE TEAM MEMBER, CMP ####[facility] [address] [place], [place] [address]Dr. Kasia Nath Urea nitrogen/Creatinine [Mass ratio] 31.9 mg/mg Normal [facility] Comment on above: Performed By: #### B MAINTENANCE TEAM MEMBER, CMP ####[facility] [address] [place], [place] [address]Dr. Kasia Nath BNPon 01-05-2023 Natriuretic peptide B (Bld) [Mass/Vol] 1389.0 pg/mL Normal <=1,800.0 [facility] Comment on above: Performed By: #### B MAINTENANCE TEAM MEMBER, CMADM, CMP ####[facility] [address] [place], [place] [address]Dr. Kasia Nath CARDIAC EMERY ADMITon 023 CK [Catalytic activity/Vol] 138 U/L Normal 26-192 [facility] Comment on above: Performed By: #### B MAINTENANCE TEAM MEMBER, CMADM, CMP ####[facility] [address] [place] [address]Dr. Kasia Nath CK.MB [Mass/Vol] 2.22 ng/mL Normal <=3.[address] [facility] Comment on above: Performed By: #### B MAINTENANCE TEAM MEMBER, CMADM, CMP ####[facility] [address] [place] [address]Dr. Kasia Nath HSTROP 15.9 pg/mL Normal 4.0-51.3 [facility] Comment on above: Result Comment: CUT- OFF POINTS HAVE BEEN ESTABLISHED BASED ON THE FOURTH UNIVERSAL DEFINITIONS OF MYOCARDIAL INFARCTION. THE UPPER REFERENCE LIMIT (URL) OF TROPONIN, DEFINED THE 99TH PERCENTILE OF cTnI DISTRIBUTION IN A REFERENCE POPULATION, HAS BEEN CONFIRMED THE DECISION THRESHOLD FOR [place] DIAGNOSIS. Performed By: #### B MAINTENANCE TEAM MEMBER, CMADM, CMP ####[facility] [address] [address]Dr. Kasia Nath GRETTA 178 ng/mL Critically high 9-82 [facility] Comment on above: Performed By: #### B MAINTENANCE TEAM MEMBER, CMADM, CMP ####[facility] [address] [place] [address]Dr. Kasia Nath CBC AUTO DIFFon 01-05-2023 BASO # 0.1 103/ul Normal 0.0-0.1 [facility] Comment on above: Performed By: #### C BC #### [facility] [address] [address] [address] Kasia Nath Basophils/100 WBC (Bld) 0.7 % Normal 0.2-2.0 [facility] Comment on above: Performed By: #### C BC #### [facility] [address] [address] [address] Kasia Nath EO # 0.3 103/ul Normal 0.0-0.7 [facility] Comment on above: Performed By: #### C BC #### [facility] [address] [address] [address] Kasia Nath Eosinophils/100 WBC (Bld) 2.9 % Normal 0.9-7.0 [facility] Comment on above: Performed By: #### C BC #### [facility] [address] [place] [address] Dr. Kasia Nath Erythrocyte distribution width (RBC) [Ratio] 13.5 % Normal 11.0-15.0 [facility] Comment on above: Performed By: #### C BC #### [facility] [address] [address] [address] Kasia Nath Hematocrit (Bld) [Volume fraction] 39.8 % Normal 36.0-48.0 [facility] Comment on above: Performed By: #### C BC #### [facility] [address] [place] [address] Dr. Kasia Nath Hemoglobin (Bld) [Mass/Vol] 13.5 g/dL Normal 12.0-16.0 [facility] Comment on above: Performed By: #### C BC #### [facility] [address] [place] [address] Dr. Kasia Nath IG # 0.02 10e3/ul Normal 0.00-0.03 [facility] Comment on above: Performed By: #### C BC #### [facility] [address] [place] [address] Dr. Kasia Nath IG % 0.2 % Normal 0.0-0.5 [facility] Comment on above: Performed By: #### C BC #### [facility] [address] [place] [address] Dr. Kasia Nath LYMPH # 1.9 103/ul Normal 1.2-3.8 [facility] Comment on above: Performed By: #### C BC #### [facility] [address] [place] [address] Dr. Kasia Nath Lymphocytes/100 WBC (Bld) 22.0 % Normal 20.5-60.0 [facility] Comment on above: Performed By: #### C BC #### [facility] [address] [place] [address] Dr. Kasia Nath MANUAL DIFF REQ NO Normal [facility] Comment on above: Performed By: #### C BC #### [facility] [address] [place] [address] Dr. Kasia Nath MCH (RBC) [Entitic mass] 29.8 pg Normal 26.7-34.0 [facility] Comment on above: Performed By: #### C BC #### [facility] [address] [place] [address] Dr. Kasia Nath MCHC (RBC) [Mass/Vol] 33.9 g/dL Normal 29.9-35.2 [facility] Comment on above: Performed By: #### C BC #### [facility] [address] [address] [address] Kasia Nath MCV (RBC) [Entitic vol] 87.9 fL Normal 81.0-99.0 [facility] Comment on above: Performed By: #### C BC #### [facility] [address] [address] [address] Kasia Nath MONO # 0.8 103/ul Normal 0.3-0.8 [facility] Comment on above: Performed By: #### C BC #### [facility] [address] [place] [address] Dr. Kasia Nath Monocytes/100 WBC (Bld) 8.8 % Normal 1.7-12.0 [facility] Comment on above: Performed By: #### C BC #### [facility] [address] [place] [address] Dr. Kasia Nath NEUT # 5.6 103/ul Normal 1.4-6.5 [facility] Comment on above: Performed By: #### C BC #### [facility] [address] [place] [address] Dr. Kasia Nath Neutrophils/100 WBC (Bld) 65.4 % Normal 43.0-75.0 [facility] Comment on above: Performed By: #### C BC #### [facility] [address] [place] [address] Dr. Kasia Nath Platelet mean volume (Bld) [Entitic vol] 10.6 fL Normal 9.5-13.5 [facility] Comment on above: Performed By: #### C BC #### [facility] [address] [place] [address] Dr. Kasia Nath PLT 222 103/ul Normal 150-450 [facility] Comment on above: Performed By: #### C BC #### [facility] [address] [place] [address] Dr. Kasia Nath RBC 4.53 106/ul Normal 4.20-5.40 [facility] Comment on above: Performed By: #### C BC #### [facility] [address] [address] [address] Kasia Nath WBC 8.6 103/ul Normal 4.0-11.0 [facility] Comment on above: Performed By: #### C BC #### [facility] [address] [address] [address] Kasia Nath PROF 14(COMP METB)on 023 Albumin [Mass/Vol] 3.3 g/dL Critically low 3.4-5.0 [facility] Comment on above: Performed By: #### B MAINTENANCE TEAM MEMBER, CMADM, CMP #### [facility] [address] [place] [address] Dr. Kasia Nath Albumin/Globulin [Mass ratio] 0.7 {ratio} Normal [facility] Comment on above: Performed By: #### B MAINTENANCE TEAM MEMBER, CMADM, CMP #### [facility] [address] [place] [address] Dr. Kasia Nath ALP [Catalytic activity/Vol] 106 U/L Normal 46-116 [facility] Comment on above: Performed By: #### B MAINTENANCE TEAM MEMBER, CMADM, CMP #### [facility] [address] [place] [address] Dr. Kasia Nath ALT [Catalytic activity/Vol] 22 U/L Normal 14-59 [facility] Comment on above: Performed By: #### B MAINTENANCE TEAM MEMBER, CMADM, CMP #### [facility] [address] [address] [address] Kasia Nath Anion gap [Moles/Vol] 12.0 mmol/L Normal [facility] Comment on above: Performed By: #### B MAINTENANCE TEAM MEMBER, CMADM, CMP #### [facility] [address] [place] [address] Dr. Kasia Nath AST [Catalytic activity/Vol] 23 U/L Normal 15-37 [facility] Comment on above: Performed By: #### B MAINTENANCE TEAM MEMBER, CMADM, CMP #### [facility] [address] [place] [address] Dr. Kasia Nath Bilirubin [Mass/Vol] 0.7 mg/dL Normal 0.2-1.0 [facility] Comment on above: Performed By: #### B MAINTENANCE TEAM MEMBER, CMADM, CMP #### [facility] [address] [address] [address] Kasia Nath Calcium [Mass/Vol] 8.8 mg/dL Normal 8.5-10.1 [facility] Comment on above: Performed By: #### B MAINTENANCE TEAM MEMBER, CMADM, CMP #### [facility] [address] [address] [address] Kasia Nath Chloride [Moles/Vol] 98 mmol/L Normal 98-107 [facility] Comment on above: Performed By: #### B MAINTENANCE TEAM MEMBER, CMADM, CMP #### [facility] [address] [address] [address] Kasia Nath CO2 [Moles/Vol] 30.2 mmol/L Normal 21.0-32.[address] [facility] Comment on above: Performed By: #### B MAINTENANCE TEAM MEMBER, CMADM, CMP #### [facility] [address] [place] [address] Dr. Kasia Nath Creatinine [Mass/Vol] 1.19 mg/dL Critically high 0.55-1.02 [facility] Comment on above: Performed By: #### B MAINTENANCE TEAM MEMBER, CMADM, CMP #### [facility] [address] [place] [address] Dr. Kasia Nath EGFR-AF ARMENIAN 53 mL/min/1.73m2 Critically low >=60 [facility] Comment on above: Performed By: #### B MAINTENANCE TEAM MEMBER, CMADM, CMP #### [facility] [address] [place] [address] Dr. Kasia Nath EGFR-NON AF ARMENIAN 44 mL/min/1.73m2 Critically low >=60 [facility] Comment on above: Performed By: #### B MAINTENANCE TEAM MEMBER, CMADM, CMP #### [facility] [address] [place] [address] Dr. Kasia Nath Globulin (S) [Mass/Vol] 4.7 g/dL Normal [facility] Comment on above: Performed By: #### B MAINTENANCE TEAM MEMBER, CMADM, CMP #### [facility] [address] [address] [address] Kasia Nath Glucose [Mass/Vol] 124 mg/dL Critically high 74-106 [facility] Comment on above: Performed By: #### B MAINTENANCE TEAM MEMBER, CMADM, CMP #### [facility] [address] [address] [address] Kasia Nath Potassium [Moles/Vol] 3.2 mmol/L Critically low 3.5-5.1 [facility] Comment on above: Performed By: #### B MAINTENANCE TEAM MEMBER, CMADM, CMP #### [facility] [address] [address] [address] Kasia Nath Protein [Mass/Vol] 8.0 g/dL Normal 6.4-8.2 [facility] Comment on above: Performed By: #### B MAINTENANCE TEAM MEMBER, CMADM, CMP #### [facility] [address] [address] [address] Kasia Nath Sodium [Moles/Vol] 137 mmol/L Normal 136-145 [facility] Comment on above: Performed By: #### B MAINTENANCE TEAM MEMBER, CMADM, CMP #### [facility] [address] [address] [address] Kasia Nath Urea nitrogen [Mass/Vol] 29.0 mg/dL Critically high 7.0-18.0 [facility] Comment on above: Performed By: #### B MAINTENANCE TEAM MEMBER, CMADM, CMP #### [facility] [address] [address] [address] Kasia Nath Urea nitrogen/Creatinine [Mass ratio] 24.4 mg/mg Normal [facility] Comment on above: Performed By: #### B MAINTENANCE TEAM MEMBER, CMADM, CMP #### [facility] [address] [address] [address] Kasia Nath TROPONIN, HIGH SENSITIVITYon 01-05-2023 HSTROP 18.4 pg/mL Normal 4.0-51.3 [facility] Comment on above: Result Comment: CUT- OFF POINTS HAVE BEEN ESTABLISHED BASED ON THE FOURTH UNIVERSAL DEFINITIONS OF MYOCARDIAL INFARCTION. THE UPPER REFERENCE LIMIT (URL) OF TROPONIN, DEFINED THE 99TH PERCENTILE OF cTnI DISTRIBUTION IN A REFERENCE POPULATION, HAS BEEN CONFIRMED THE DECISION THRESHOLD FOR [place] DIAGNOSIS. Performed By: #### H STROPN ####[facility] [address] [place] [address]Dr. Kasia Nath XR CHEST 1 Von 01-05-2023 [...] BIN ROJAS Date: 2023-01-05 04:39 Normal [facility] BNPon 01-02-2023 Natriuretic peptide B (Bld) [Mass/Vol] 2583.0 pg/mL Critically high <=1,800.0 [facility] Comment on above: Performed By: #### B MAINTENANCE TEAM MEMBER, CMP ####[facility] [address] [place] [address]Dr. Kasia Nath CBC AUTO DIFFon 01-02-2023 BASO # 0.1 103/ul Normal 0.0-0.1 [facility] Comment on above: Performed By: #### P OCGLUC #### [facility] [address] [address] [address] Kasia Nath Basophils/100 WBC (Bld) 0.9 % Normal 0.2-2.0 [facility] Comment on above: Performed By: #### P OCGLUC #### [facility] [address] [address] [address] Kasia Nath EO # 0.2 103/ul Normal 0.0-0.7 [facility] Comment on above: Performed By: #### P OCGLUC #### [facility] [address] [address] [address] Kasia Nath Eosinophils/100 WBC (Bld) 2.3 % Normal 0.9-7.0 [facility] Comment on above: Performed By: #### P OCGLUC #### [facility] [address] [place] [address] Dr. Kasia Nath Erythrocyte distribution width (RBC) [Ratio] 13.8 % Normal 11.0-15.0 [facility] Comment on above: Performed By: #### P OCGLUC #### [facility] [address] [place] [address] Dr. Kasia Nath Hematocrit (Bld) [Volume fraction] 35.5 % Critically low 36.0-48.0 [facility] Comment on above: Performed By: #### P OCGLUC #### [facility] [address] [place] [address] Dr. Kasia Nath Hemoglobin (Bld) [Mass/Vol] 11.6 g/dL Critically low 12.0-16.0 [facility] Comment on above: Performed By: #### P OCGLUC #### [facility] [address] [place] [address] Dr. Kasia Nath IG # 0.02 10e3/ul Normal 0.00-0.03 [facility] Comment on above: Performed By: #### P OCGLUC #### [facility] [address] [place] [address] Dr. Kasia Nath IG % 0.3 % Normal 0.0-0.5 [facility] Comment on above: Performed By: #### P OCGLUC #### [facility] [address] [address] [address] Kasia Nath LYMPH # 2.0 103/ul Normal 1.2-3.8 [facility] Comment on above: Performed By: #### P OCGLUC #### [facility] [address] [place] [address] Dr. Kasia Nath Lymphocytes/100 WBC (Bld) 24.8 % Normal 20.5-60.0 [facility] Comment on above: Performed By: #### P OCGLUC #### [facility] [address] [address] [address] Kasia Nath MANUAL DIFF REQ NO Normal [facility] Comment on above: Performed By: #### P OCGLUC #### [facility] [address] [address] [address] Kasia Nath MCH (RBC) [Entitic mass] 28.7 pg Normal 26.7-34.0 [facility] Comment on above: Performed By: #### P OCGLUC #### [facility] [address] [address] [address] Kasia Nath MCHC (RBC) [Mass/Vol] 32.7 g/dL Normal 29.9-35.2 [facility] Comment on above: Performed By: #### P OCGLUC #### [facility] [address] [place] [address] Dr. Kasia Nath MCV (RBC) [Entitic vol] 87.9 fL Normal 81.0-99.0 [facility] Comment on above: Performed By: #### P OCGLUC #### [facility] [address] [place] [address] Dr. Kasia Nath MONO # 0.8 103/ul Normal 0.3-0.8 [facility] Comment on above: Performed By: #### P OCGLUC #### [facility] [address] [address] [address] Kasia Nath Monocytes/100 WBC (Bld) 9.6 % Normal 1.7-12.0 [facility] Comment on above: Performed By: #### P OCGLUC #### [facility] [address] [address] [address] Kasia Nath NEUT # 5.0 103/ul Normal 1.4-6.5 [facility] Comment on above: Performed By: #### P OCGLUC #### [facility] [address] [place] [address] Dr. Kasia Nath Neutrophils/100 WBC (Bld) 62.1 % Normal 43.0-75.0 [facility] Comment on above: Performed By: #### P OCGLUC #### [facility] [address] [address] [address] Kasia Nath Platelet mean volume (Bld) [Entitic vol] 10.7 fL Normal 9.5-13.5 [facility] Comment on above: Performed By: #### P OCGLUC #### [facility] [address] [address] [address] Kasia Nath PLT 204 103/ul Normal 150-450 [facility] Comment on above: Performed By: #### P OCGLUC #### [facility] [address] [address] [address] Kasia Nath RBC 4.04 106/ul Critically low 4.20-5.40 [facility] Comment on above: Performed By: #### P OCGLUC #### [facility] [address] [address] [address] Kasia Nath WBC 8.0 103/ul Normal 4.0-11.0 [facility] Comment on above: Performed By: #### P OCGLUC #### [facility] [address] [address] [address] Kasia Nath GLYCOHEMOGLOBIN A1Con 2022 ADA RECOMMENDATION SEE BELOW Normal [facility] Comment on above: Result Comment: ADA RECOMMENDED LIMIT 4.0 - 6.0 ADA THERAPEUTIC TARGET < 7.0 ACTION SUGGESTED > 7.0 Performed By: #### A 1C ####[facility] [address] [place] [address]Dr. Kasia Nath Glucose [Mass/Vol] 298 mg/dL Normal [facility] Comment on above: Performed By: #### A 1C ####[facility] [address] [id number]. Kasia Nath HbA1c (Bld) [Mass fraction] 12.0 % Critically high 4.5-6.2 [facility] Comment on above: Performed By: #### A 1C ####[facility] [address] [place] [address]Dr. Kasia Nath POINT OF CARE GLUCOSEon 12-14 Glucose [Mass/Vol] 227 mg/dL Critically high 74-106 [facility] Comment on above: Performed By: #### C BC #### [facility] [address] [address] [address] Kasia Nath Glucose [Mass/Vol] 214 mg/dL Critically high 74-106 [facility] Comment on above: Performed By: #### C BC #### [facility] [address] [address] [address] Kasia Nath PROF 14(COMP METB)on 023 Albumin [Mass/Vol] 2.6 g/dL Critically low 3.4-5.0 [facility] Comment on above: Performed By: #### B MAINTENANCE TEAM MEMBER, CMP ####[facility] [address] [place] [address]Dr. Kasia Nath Albumin/Globulin [Mass ratio] 0.6 {ratio} Normal [facility] Comment on above: Performed By: #### B MAINTENANCE TEAM MEMBER, CMP ####[facility] [address] [place] [address]Dr. Kasia Nath ALP [Catalytic activity/Vol] 94 U/L Normal 46-116 [facility] Comment on above: Performed By: #### B MAINTENANCE TEAM MEMBER, CMP ####[facility] [address] [place] [address]Dr. Kasia Nath ALT [Catalytic activity/Vol] 16 U/L Normal 14-59 [facility] Comment on above: Performed By: #### B MAINTENANCE TEAM MEMBER, CMP ####[facility] [address] [place] [address]Dr. Kasia Nath Anion gap [Moles/Vol] 10.6 mmol/L Normal [facility] Comment on above: Performed By: #### B MAINTENANCE TEAM MEMBER, CMP ####[facility] [address] [place] [address]Dr. Kasia Nath AST [Catalytic activity/Vol] 15 U/L Normal 15-37 [facility] Comment on above: Performed By: #### B MAINTENANCE TEAM MEMBER, CMP ####[facility] [address] [place] [address]Dr. Kasia Nath Bilirubin [Mass/Vol] 0.8 mg/dL Normal 0.2-1.0 [facility] Comment on above: Performed By: #### B MAINTENANCE TEAM MEMBER, CMP ####[facility] [address] [place], [place] [address]Dr. Kasia Nath Calcium [Mass/Vol] 8.5 mg/dL Normal 8.5-10.1 [facility] Comment on above: Performed By: #### B MAINTENANCE TEAM MEMBER, CMP ####[facility] [address] [place], [place] [address]Dr. Kasia Nath Chloride [Moles/Vol] 102 mmol/L Normal 98-107 [facility] Comment on above: Performed By: #### B MAINTENANCE TEAM MEMBER, CMP ####[facility] [address] [place], [place] [address]Dr. Kasia Nath CO2 [Moles/Vol] 30.2 mmol/L Normal 21.0-32.0 [facility] Comment on above: Performed By: #### B MAINTENANCE TEAM MEMBER, CMP ####[facility] [address] [place], [place] [address]Dr. Kasia Nath Creatinine [Mass/Vol] 0.94 mg/dL Normal 0.55-1.02 [facility] Comment on above: Performed By: #### B MAINTENANCE TEAM MEMBER, CMP ####[facility] [address] [place], [place] [address]Dr. Kasia Nath EGFR-AF ARMENIAN >60 Normal >=60 [facility] Comment on above: Performed By: #### B MAINTENANCE TEAM MEMBER, CMP ####[facility] [address] [place], [place] [address]Dr. Kasia Nath EGFR-NON AF ARMENIAN 58 mL/min/1.73m2 Critically low >=60 [facility] Comment on above: Performed By: #### B MAINTENANCE TEAM MEMBER, CMP ####[facility] [address] [place], [place] [address]Dr. Kasia Nath Globulin (S) [Mass/Vol] 4.0 g/dL Normal [facility] Comment on above: Performed By: #### B MAINTENANCE TEAM MEMBER, CMP ####[facility] [address] [place] [address]Dr. Kasia Nath Glucose [Mass/Vol] 150 mg/dL Critically high 74-106 [facility] Comment on above: Performed By: #### B MAINTENANCE TEAM MEMBER, CMP ####[facility] [address] [place] [address]Dr. Kasia Nath Potassium [Moles/Vol] 3.8 mmol/L Normal 3.5-5.1 [facility] Comment on above: Performed By: #### B MAINTENANCE TEAM MEMBER, CMP ####[facility] [address] [place] [address]Dr. Kasia Nath Protein [Mass/Vol] 6.6 g/dL Normal 6.4-8.2 [facility] Comment on above: Performed By: #### B MAINTENANCE TEAM MEMBER, CMP ####[facility] [address] [place] [address]Dr. Kasia Nath Sodium [Moles/Vol] 139 mmol/L Normal 136-145 [facility] Comment on above: Performed By: #### B MAINTENANCE TEAM MEMBER, CMP ####[facility] [address] [place] [address]Dr. Kasia Nath Urea nitrogen [Mass/Vol] 24.0 mg/dL Critically high 7.0-18.0 [facility] Comment on above: Performed By: #### B MAINTENANCE TEAM MEMBER, CMP ####[facility] [address] [place] [address]Dr. Kasia Nath Urea nitrogen/Creatinine [Mass ratio] 25.5 mg/mg Normal [facility] Comment on above: Performed By: #### B MAINTENANCE TEAM MEMBER, CMP ####[facility] [address] [place] [address]Dr. Kasia Nath BNPon 01-01-2023 Natriuretic peptide B (Bld) [Mass/Vol] 1419.0 pg/mL Normal <=1,800.0 [facility] Center Comment on above: Performed By: #### B MAINTENANCE TEAM MEMBER #### [facility] [address] [address] [address] Kasia Nath CARDIAC EMERY 3-6on 3 CK [Catalytic activity/Vol] 80 U/L Normal 26-192 [facility] Comment on above: Performed By: #### P OCGLUC #### [facility] [address] [place] [address] Dr. Kasia Nath CK.MB [Mass/Vol] 1.85 ng/mL Normal <=3.60 [facility] Comment on above: Performed By: #### P OCGLUC #### [facility] [address] [address] [address] Kasia Nath HSTROP 13.2 pg/mL Normal 4.0-51.3 [facility] Comment on above: Result Comment: CUT- OFF POINTS HAVE BEEN ESTABLISHED BASED ON THE FOURTH UNIVERSAL DEFINITIONS OF MYOCARDIAL INFARCTION. THE UPPER REFERENCE LIMIT (URL) OF TROPONIN, DEFINED THE 99TH PERCENTILE OF cTnI DISTRIBUTION IN A REFERENCE POPULATION, HAS BEEN CONFIRMED THE DECISION THRESHOLD FOR TN DIAGNOSIS. Performed By: #### P OCGLUC #### [facility] [address] [place] [address] Dr. Kasia Nath CK [Catalytic activity/Vol] 73 U/L Normal 26-192 [facility] Comment on above: Performed By: #### P OCGLUC #### [facility] [address] [place] [address] Dr. Kasia Nath CK.MB [Mass/Vol] 1.71 ng/mL Normal <=3.60 [facility] Comment on above: Performed By: #### P OCGLUC #### [facility] [address] [place] [address] Dr. Kasia Nath HSTROP 13.6 pg/mL Normal 4.0-51.3 [facility] Comment on above: Result Comment: CUT- OFF POINTS HAVE BEEN ESTABLISHED BASED ON THE FOURTH UNIVERSAL DEFINITIONS OF MYOCARDIAL INFARCTION. THE UPPER REFERENCE LIMIT (URL) OF TROPONIN, DEFINED THE 99TH PERCENTILE OF cTnI DISTRIBUTION IN A REFERENCE POPULATION, HAS BEEN CONFIRMED THE DECISION THRESHOLD FOR TN DIAGNOSIS. Performed By: #### P OCGLUC #### [facility] [address] [place] [address] Dr. Kasia Nath CARDIAC EMERY ADMITon 023 CK [Catalytic activity/Vol] 71 U/L Normal 26-192 [facility] Comment on above: Performed By: #### C BC #### [facility] [address] [place] [address] Dr. Kasia Nath CK.MB [Mass/Vol] 1.69 ng/mL Normal <=3.60 [facility] Comment on above: Performed By: #### C BC #### [facility] [address] [place] [address] Dr. Kasia Nath HSTROP 13.0 pg/mL Normal 4.0-51.3 [facility] Comment on above: Result Comment: CUT- OFF POINTS HAVE BEEN ESTABLISHED BASED ON THE FOURTH UNIVERSAL DEFINITIONS OF MYOCARDIAL INFARCTION. THE UPPER REFERENCE LIMIT (URL) OF TROPONIN, DEFINED THE 99TH PERCENTILE OF cTnI DISTRIBUTION IN A REFERENCE POPULATION, HAS BEEN CONFIRMED THE DECISION THRESHOLD FOR TN DIAGNOSIS. Performed By: #### C BC #### [facility] [address] [place] [address] Dr. Kasia Nath GRETTA 75 ng/mL Normal 9-82 [facility] Comment on above: Performed By: #### C BC #### [facility] [address] [place] [address] Dr. Kasia Nath CBC AUTO DIFFon 01-01-2023 BASO # 0.1 103/ul Normal 0.0-0.1 [facility] Comment on above: Performed By: #### C BC #### [facility] [address] [place] [address] Dr. Kasia Nath Basophils/100 WBC (Bld) 1.1 % Normal 0.2-2.0 [facility] Comment on above: Performed By: #### C BC #### [facility] [address] [place] [address] Dr. Kasia Nath EO # 0.2 103/ul Normal 0.0-0.7 [facility] Comment on above: Performed By: #### C BC #### [facility] [address] [place] [address] Dr. Kasia Nath Eosinophils/100 WBC (Bld) 2.9 % Normal 0.9-7.0 [facility] Comment on above: Performed By: #### C BC #### [facility] [address] [place] [address] Dr. Kasia Nath Erythrocyte distribution width (RBC) [Ratio] 13.8 % Normal 11.0-15.0 [facility] Comment on above: Performed By: #### C BC #### [facility] [address] [place] [address] Dr. Kasia Nath Hematocrit (Bld) [Volume fraction] 36.2 % Normal 36.0-48.0 [facility] Comment on above: Performed By: #### C BC #### [facility] [address] [place] [address] Dr. Kasia Nath Hemoglobin (Bld) [Mass/Vol] 12.1 g/dL Normal 12.0-16.0 [facility] Comment on above: Performed By: #### C BC #### [facility] [address] [place] [address] Dr. Kasia Nath IG # 0.02 10e3/ul Normal 0.00-0.03 [facility] Comment on above: Performed By: #### C BC #### [facility] [address] [place] [address] Dr. Kasia Nath IG % 0.3 % Normal 0.0-0.5 [facility] Comment on above: Performed By: #### C BC #### [facility] [address] [place] [address] Dr. Kasia Nath LYMPH # 1.5 103/ul Normal 1.2-3.8 [facility] Comment on above: Performed By: #### C BC #### [facility] [address] [place] [address] Dr. Kasia Naht Lymphocytes/100 WBC (Bld) 19.9 % Critically low 20.5-60.0 [facility] Comment on above: Performed By: #### C BC #### [facility] [address] [place] [address] Dr. Kasia Nath MANUAL DIFF REQ NO Normal [facility] Comment on above: Performed By: #### C BC #### [facility] [address] [place] [address] Dr. Kasia Nath MCH (RBC) [Entitic mass] 29.7 pg Normal 26.7-34.0 [facility] Comment on above: Performed By: #### C BC #### [facility] [address] [place] [address] Dr. Kasia Nath MCHC (RBC) [Mass/Vol] 33.4 g/dL Normal 29.9-35.2 [facility] Comment on above: Performed By: #### C BC #### [facility] [address] [place] [address] Dr. Kasia Nath MCV (RBC) [Entitic vol] 88.9 fL Normal 81.0-99.0 [facility] Comment on above: Performed By: #### C BC #### [facility] [address] [place] [address] Dr. Kasia Nath MONO # 0.6 103/ul Normal 0.3-0.8 [facility] Comment on above: Performed By: #### C BC #### [facility] [address] [place] [address] Dr. Kasia Nath Monocytes/100 WBC (Bld) 8.0 % Normal 1.7-12.0 [facility] Comment on above: Performed By: #### C BC #### [facility] [address] [place] [address] Dr. Kasia Nath NEUT # 5.1 103/ul Normal 1.4-6.5 [facility] Comment on above: Performed By: #### C BC #### [facility] [address] [place] [address] Dr. Kasia Nath Neutrophils/100 WBC (Bld) 67.8 % Normal 43.0-75.0 [facility] Comment on above: Performed By: #### C BC #### [facility] [address] [place] [address] Dr. Kasia Nath Platelet mean volume (Bld) [Entitic vol] 10.4 fL Normal 9.5-13.5 [facility] Comment on above: Performed By: #### C BC #### [facility] [address] [place], [place] [address] Dr. Kasia Nath PLT 200 103/ul Normal 150-450 [facility] Comment on above: Performed By: #### C BC #### [facility] [address] [address] [address] Kasia Nath RBC 4.07 106/ul Critically low 4.20-5.40 [facility] Comment on above: Performed By: #### C BC #### [facility] [address] [id number] Kasia Nath WBC 7.5 103/ul Normal 4.0-11.0 [facility] Comment on above: Performed By: #### C BC #### [facility] [address] [address] [address] CHEST WO CONon [...] two extremes (Agatston score 101-1000). https://pubs.rsna.org/do i/abs/10.1148/radiol.[email or web address] [address] Electronically authenticated by: RENETTA MICHAELS Date: 2023-01-01 14:55 Normal [facility] Covid-19 PCR (CVDTBH)on 12-14 SARS-CoV-2 (COVID-19) RNA FERN+probe Ql (Unsp spec) Not detected Normal NOT DETECTED [facility] Comment on above: Result [...] for this test is supported by the Ground Support Agent of Health and Human Service's declaration that [...] longer be used). Performed By: #### [facility] #### [facility] [address] [address] [address] Kasia Nath ECHO LIMITED STUDYon 023 ECHO LIMITED STUDY Patient: SAIMA CALL Exam Date: 01/01/2023 : 1945 Gender:F Ordering : MARTINE GUERRERO . Admission #: [id number] Family : Order #: [id number] CLICK HERE TO VIEW EXAM ECHOCARDIOGRAM REPORT [...] Kaplan M.D. on 01/01/2023 at 13:19 Normal [facility] GLYCOHEMOGLOBIN A1Con 2022 ADA RECOMMENDATION SEE BELOW Normal [facility] Comment on above: Result Comment: ADA RECOMMENDED LIMIT 4.0 - 6.0 ADA THERAPEUTIC TARGET < 7.0 ACTION SUGGESTED > 7.0 Performed By: #### P OCGLUC #### [facility] [address] [address] [address] Kasia Nath Glucose [Mass/Vol] 318 mg/dL Normal [facility] Comment on above: Performed By: #### P OCGLUC #### [facility] [address] [place], [place] [address] Dr. Kasia Nath HbA1c (Bld) [Mass fraction] 12.7 % Critically high 4.5-6.2 [facility] Comment on above: Performed By: #### P OCGLUC #### [facility] [address] [address] [address] Kasia Nath POINT OF CARE GLUCOSEon 12-14 Glucose [Mass/Vol] 162 mg/dL Critically high 74-106 [facility] Comment on above: Performed By: #### P OCGLUC ####[facility] [id number] [address]Dr[address] Kasia Nath Glucose [Mass/Vol] 213 mg/dL Critically high 74-106 [facility] Comment on above: Performed By: #### P OCGLUC ####[facility] [address] [address]Dr. Kasia Nath Glucose [Mass/Vol] 248 mg/dL Critically high 74-106 [facility] Comment on above: Performed By: #### P OCGLUC #### [facility] [address] [place] [address] Dr. Kasia Nath PROF CHEM 8 (BAS METB)on Anion gap [Moles/Vol] 11.8 mmol/L Normal [facility] Comment on above: Performed By: #### C BC #### [facility] [address] [place] [address] Dr. Kasia Nath Calcium [Mass/Vol] 8.4 mg/dL Critically low 8.5-10.1 [facility] Comment on above: Performed By: #### C BC #### [facility] [address] [place] [address] Dr. Kasia Nath Chloride [Moles/Vol] 102 mmol/L Normal 98-107 [facility] Comment on above: Performed By: #### C BC #### [facility] [address] [place] [address] Dr. Kasia Nath CO2 [Moles/Vol] 28.4 mmol/L Normal 21.0-32.[address] [facility] Comment on above: Performed By: #### C BC #### [facility] [address] [place] [address] Dr. Kasia Nath Creatinine [Mass/Vol] 1.09 mg/dL Critically high 0.55-1.02 [facility] Comment on above: Performed By: #### C BC #### [facility] [address] [address] [address] Kasia Nath EGFR-AF ARMENIAN 59 mL/min/1.73m2 Critically low >=60 [facility] Comment on above: Performed By: #### C BC #### [facility] [address] [address] [address] Kasia Nath EGFR-NON AF ARMENIAN 49 mL/min/1.73m2 Critically low >=60 [facility] Comment on above: Performed By: #### C BC #### [facility] [address] [address] [address] Kasia Nath Glucose [Mass/Vol] 247 mg/dL Critically high 74-106 [facility] Comment on above: Performed By: #### C BC #### [facility] [address] [address] [address] Kasia Nath Potassium [Moles/Vol] 4.2 mmol/L Normal 3.5-5.1 [facility] Comment on above: Performed By: #### C BC #### [facility] [address] [address] [address] Kasia Nath Sodium [Moles/Vol] 138 mmol/L Normal 136-145 [facility] Comment on above: Performed By: #### C BC #### [facility] [address] [address] [address] Kasia Nath Urea nitrogen [Mass/Vol] 28.0 mg/dL Critically high 7.0-18.0 [facility] Comment on above: Performed By: #### C BC #### [facility] [address] [address] [address] Kasia Nath Urea nitrogen/Creatinine [Mass ratio] 25.7 mg/mg Normal [facility] Comment on above: Performed By: #### C BC #### [facility] [address] [address] [address] Kasia Nath XR CHEST 1 Von [...] by: Miranda ALVAREZ Date: 2023-01-01 05:38 Normal [facility] ECHOCARDIO M/2D COMPLETEon 1 11-15-2021 ECHOCARDIO M/2D COMPLETE Patient: JOE CALL Exam Date: 09/15/2022 : 1945 Gender:F Ordering : YAMEL PANDYA [facility] Admission #: [id number] Family : DR SHANTEL STEVEN M.D. Order #: [id number] CLICK HERE TO VIEW EXAM ECHOCARDIOGRAM REPORT [...] M.D. on 09/15/2022 at 18:17 Normal [facility] GI PANEL (PCR)on 05-02-2022 Adenovirus F 40/41 Not detected Normal NOT DETECTED [facility] Comment on above: Performed By: #### P OCGLUC #### [facility] [address] [place] [address] Dr. Kasia Nath Astrovirus Not detected Normal NOT DETECTED [facility] Comment on above: Performed By: #### P OCGLUC #### [facility] [address] [place] [address] Dr. Kasia Nath C. Diff toxin A/B Not detected Normal NOT DETECTED [facility] Comment on above: Performed By: #### P OCGLUC #### [facility] [address] [place] [address] Dr. Kasia Nath Campylobacter Not detected Normal NOT DETECTED [facility] Comment on above: Performed By: #### P OCGLUC #### [facility] [address] [place] [address] Dr. Kasia Nath Cryptosporidium Not detected Normal NOT DETECTED [facility] Comment on above: Performed By: #### P OCGLUC #### [facility] [address] [place] [address] Dr. Kasia Nath Cyclos. Cayetanensis Not detected Normal NOT DETECTED [facility] Comment on above: Performed By: #### P OCGLUC #### [facility] [address] [place] [address] Dr. Kasia Nath E. Coli O157 Not Applicable Normal Not Applicable [facility] Comment on above: Performed By: #### P OCGLUC #### [facility] [address] [place] [address] Dr. Kasia Nath E. histolytica Not detected Normal NOT DETECTED [facility] Comment on above: Performed By: #### P OCGLUC #### [facility] [address] [place] [address] Dr. Kasia Nath EAEC Not detected Normal NOT DETECTED [facility] Comment on above: Performed By: #### P OCGLUC #### [facility] [address] [address] [address] Kasia Nath EIEC Not detected Normal NOT DETECTED [facility] Comment on above: Performed By: #### P OCGLUC #### [facility] [address] [address] [address] Kasia Nath EPEC Detected Abnormal NOT DETECTED [facility] Comment on above: Performed By: #### P OCGLUC #### [facility] [address] [address] [address] Kasia Nath ETEC Not detected Normal NOT DETECTED [facility] Comment on above: Performed By: #### P OCGLUC #### [facility] [address] [address] [address] Kasia Nath G. Lamblia Not detected Normal NOT DETECTED [facility] Comment on above: Performed By: #### P OCGLUC #### [facility] [address] [place] [address] Dr. Kasia KHAN CONTROLS PASSED Normal [facility] Comment on above: Performed By: #### P OCGLUC #### [facility] [address] [address] [address] Kasia [facility] HEADER GI PANEL BACTERIA Normal [facility] Comment on above: Performed By: #### P OCGLUC #### [facility] [address] [place] [address] Dr. Kasia GE ECOLI GI PANEL DIARRHEAGEN IC E.COLI / SHIGELLA Normal [facility] Comment on above: Performed By: #### P OCGLUC #### [facility] [address] [address] [address] Kasia GE INFO SEE BELOW [facility] Comment on above: Result Comment: EAEC - Enteroaggregative E. Coli EPEC- Enteropathogenic E. Coli ETEC- Enterotoxigenic E. Coli lt/st STEC- Shigella-like toxin-producing E. Coli stx1/stx2 EIEC- Shigella/Enteroinvasive E. Coli Performed By: #### P OCGLUC #### [facility] [address] [place] [address] Dr. Kasia GE PARASITES GI PANEL PARASITES Normal [facility] Comment on above: Performed By: #### P OCGLUC #### [facility] [address] [address] [address] Kasia GE VIRUS GI PANEL VIRUSES Normal [facility] Comment on above: Performed By: #### P OCGLUC #### [facility] [address] [place] [address] Dr. Kasia Nath Norovirus GI/GII Not detected Normal NOT DETECTED [facility] Comment on above: Performed By: #### P OCGLUC #### [facility] [address] [place] [address] Dr. Kasia Garland. Shigelloides Not detected Normal NOT DETECTED [facility] Comment on above: Performed By: #### P OCGLUC #### [facility] [address] [place] [address] Dr. Kasia Nath Rotavirus A Not detected Normal NOT DETECTED [facility] Comment on above: Performed By: #### P OCGLUC #### [facility] [address] [place] [address] Dr. Kasia Nath Salmonella Not detected Normal NOT DETECTED [facility] Comment on above: Performed By: #### P OCGLUC #### [facility] [address] [place] [address] Dr. Kasia Nath Sapovirus Not detected Normal NOT DETECTED [facility] Comment on above: Performed By: #### P OCGLUC #### [facility] [address] [place] [address] Dr. Kasia Nath STEC Not detected Normal NOT DETECTED [facility] Comment on above: Performed By: #### P OCGLUC #### [facility] [address] [place] [address] Dr. Kasia Nath Vibrio Not detected Normal NOT DETECTED [facility] Comment on above: Performed By: #### P OCGLUC #### [facility] [address] [place] [address] Dr. Kasia Nath Vibrio Cholera Not detected Normal NOT DETECTED [facility] Comment on above: Performed By: #### P OCGLUC #### [facility] [address] [address] [address] Kasia Nath YDoreen Enterocolitica Not detected Normal NOT DETECTED [facility] Comment on above: Performed By: #### P OCGLUC #### [facility] [address] [place], [place] [address] Dr. Kasia Nath OCC BLD IMMUNO SCREENon 04-13 OCCULT BLOOD Negative Normal NEGATIVE [facility] Comment on above: Performed By: #### C BC #### [facility] [address] [place], [place] [address] Dr. Kasia Nath XR knee BI 4Von 08-25-2021 XR knee BI 4V [facility] [employer] Other XR knee BI 4V [facility] [employer] Other XR knee BI 4V [address] [place] [address] [employer] Other XR knee BI 4V [address] [employer] Other XR knee BI 4V XRay Report [employer] Other XR knee BI 4V Signed [employer] Other XR knee BI 4V Patient: Joe Call MR#: [id number] Renick [employer] Other XR knee BI 4V 0 [employer] Other XR knee BI 4V : 1945 Acct:[id number] [employer] Other XR knee BI 4V Age/Sex: 76 / F ADM Date: 08/25/21 [employer] Other XR knee BI 4V Loc: [facility] Room: Type : [facility] [employer] Other XR knee BI 4V Attending Dr: Akbar Cui II, MD [employer] Other XR knee BI 4V Ordering Provider: Akbar Cui MD [employer] Other XR knee BI 4V Date of Service: 08/25/21 [employer] Other XR knee BI 4V XR/XR knee BI 4V: Pain in right knee;Pain in left knee [employer] Other XR knee BI 4V Copies to: Akbar Cui MD [employer] Other XR knee BI 4V XR knee BI 4V 2020 1:32 PM [employer] Other XR knee BI 4V SIGNS AND SYMPTOMS: Bilateral knee pain with decreased range of motion, weakness [employer] Other XR knee BI 4V PROTOCOL: Frontal, lateral, and sunrise views of the bilateral knees [employer] Other XR knee BI 4V COMPARISON: None [employer] Other XR knee BI 4V FINDINGS: [employer] Other XR knee BI 4V There is mild narrow ing of the medial weightbearing joint spaces. There is mild patellofemoral [employer] Other XR knee BI 4V joint space loss. Th ere is spurring of the poles of the patella bilaterally. There is mild lateral [employer] Other XR knee BI 4V patellar subluxation bilaterally. There is no evidence of acute displaced fracture. Well-corticated [employer] Other XR knee BI 4V ossific structures o r separate from the right medial weightbearing joint space. This may represent a [employer] Other XR knee BI 4V calcified loose bodies. [employer] Other XR knee BI 4V X R/XR knee BI 4V [employer] Other XR knee BI 4V IMPRESSION: [employer] [facility] [employer] Other XR knee BI 4V Degenerative changes are noted are noted bilaterally, as above. [employer] Other XR knee BI 4V Well-corticated ossi fic structures or separate from the right medial weightbearing joint space. This [employer] Other XR knee BI 4V may represent a calcified loose bodies. [employer] Other XR knee BI 4V No acute displaced fracture. [employer] Other XR knee BI 4V There is mild latera l subluxation of the patella within the patellofemoral joint space bilaterally. [employer] Other XR knee BI 4V Impression dictated by: Emery Lobo M.D.08/25/2021 2:51 PM [employer] Other XR knee BI 4V Dictation Location: [place] [address] [employer] Other XR knee BI 4V Transcribed By: [facility] 08/25/21 [facility] [employer] Other XR knee BI 4V Dictated By: Emery Lobo II, MD 08/25/21 [facility] [employer] Other XR knee BI 4V Signed By: [employer] Other XR knee BI 4V 08/25/21 [facility] [employer] Other XR pelvis 1-2Von 08-25-2021 XR pelvis 1-2V XR/XR pelvis 1-2V: Pain in right knee;Pain in left knee [employer] Other XR pelvis 1-2V XR pelvis 1-2V 08/25/2021 1:32 PM [employer] Other XR pelvis 1-2V SIGNS AND SYMPTOMS: Bilateral generalized knee pain, limited range of motion with weakness [employer] Other XR pelvis 1-2V PROTOCOL: Frontal radiograph of the pelvis [employer] Other XR pelvis 1-2V There is mild narrow ing of the weightbearing joint spaces. Mild degenerative changes are noted in [employer] Other XR pelvis 1-2V the symphysis pubis. There is no evidence of fracture or dislocation. Vascular calcifications are [employer] Other XR pelvis 1-2V present in the pelvis. [employer] Other XR pelvis 1-2V X R/XR pelvis 1-2V [employer] Other XR pelvis 1-2V No fracture or dislocation. [employer] Other XR pelvis 1-2V Mild degenerative changes are noted in the joint space of the hips. [employer] Other XR pelvis 1-2V Impression dictated by: Emery Lobo M.D.08/25/2021 2:54 PM [employer] Other XR pelvis 1-2V Transcribed By: P[facility] 08/25/21 [facility] [employer] Other XR pelvis 1-2V Dictated By: Emery Lobo II, MD 08/25/21 [facility] [employer] Other XR pelvis 1-2V 08/25/21 [facility] [employer] Other Vital Signs Date Time Vital Sign Value Performing Clinician Facility 08-17-2025 13:20-0400 Diastolic blood pressure 65 mm[Hg] Shantel Steven MD Work Phone: [facility] 08-17-2025 13:20-0400 Heart rate 61 /min Shantel Steven MD Work Phone: [facility] 08-17-2025 13:20-0400 Systolic blood pressure 144 mm[Hg] Shantel Steven MD Work Phone: [facility] 08-05-2025 09:49-0400 Diastolic blood pressure 90 mm[Hg] Shantel Steven MD Work Phone: [facility] 08-05-2025 09:49-0400 Heart rate 67 /min Shantel Steven MD Work Phone: [facility] 08-05-2025 09:49-0400 Systolic blood pressure 176 mm[Hg] Shantel Steven MD Work Phone: [facility] 08-05-2025 09:39-0400 Body height 165.1 cm Shantel Steven MD Work Phone: [facility] 08-05-2025 09:39-0400 Body mass index (BMI) [Ratio] 42.7 kg/m2 Shantel Steven MD Work Phone: [facility] 08-05-2025 09:39-0400 Body weight 116.57 kg Shantel Steven MD Work Phone: [facility] 08-01-2025 08:56-0400 Body temperature 97.6 [degF] Shantel Steven MD Work Phone: [facility] 08-01-2025 08:56-0400 Diastolic blood pressure 84 mm[Hg] Shantel Steven MD Work Phone: [facility] 08-01-2025 08:56-0400 Heart rate 79 /min Shantel Steven MD Work Phone: [facility] 08-01-2025 08:56-0400 Inhaled oxygen flow rate 2 L/min Shantel Steven MD Work Phone: [facility] 08-01-2025 08:56-0400 Respiratory rate 16 /min Shantel Steven MD Work Phone: [facility] 08-01-2025 08:56-0400 SaO2% (BldA) [Mass fraction] 96 % Shantel Steven MD Work Phone: [facility] 08-01-2025 08:56-0400 Systolic blood pressure 162 mm[Hg] Shantel Steven MD Work Phone: [facility] 08-01-2025 08:54-0400 Body weight 118.3 kg Shantel Steven MD Work Phone: [facility] 07-30-2025 12:56-0400 Body height 165.1 cm Shantel Steven MD Work Phone: [facility] 07-30-2025 08:00-0400 Inhaled oxygen concentration 2 % Shantel Steven MD Work Phone: [facility] 07-29-2025 17:00-0400 Diastolic blood pressure 70 mm[Hg] Shantel Steven MD Work Phone: [facility] 07-29-2025 17:00-0400 Heart rate 61 /min Shantel Steven MD Work Phone: [facility] 07-29-2025 17:00-0400 Inhaled oxygen flow rate 2 L/min Shantel Steven MD Work Phone: [facility] 07-29-2025 17:00-0400 Respiratory rate 22 /min Shantel Steven MD Work Phone: [facility] 07-29-2025 17:00-0400 SaO2% (BldA) [Mass fraction] 98 % Shantel Steven MD Work Phone: [facility] 07-29-2025 17:00-0400 Systolic blood pressure 162 mm[Hg] Shantel Steven MD Work Phone: [facility] 07-29-2025 10:02-0400 Body height 165.1 cm Shantel Steven MD Work Phone: [facility] 07-29-2025 10:02-0400 Body weight 115.21 kg Shantel Steven MD Work Phone: [facility] 07-20-2025 14:19-0400 Body height 165.1 cm Shantel Steven MD Work Phone: [facility] 07-20-2025 14:19-0400 Body mass index (BMI) [Ratio] 42.3 kg/m2 Shantel Steven MD Work Phone: [facility] 07-20-2025 14:19-0400 Body temperature 97.3 [degF] Shantel Steven MD Work Phone: [facility] 07-20-2025 14:19-0400 Body weight 115.21 kg Shantel Steven MD Work Phone: [facility] 07-20-2025 14:19-0400 Diastolic blood pressure 73 mm[Hg] Shantel Steven MD Work Phone: [facility] 07-20-2025 14:19-0400 Heart rate 72 /min Shantel Steven MD Work Phone: [facility] 07-20-2025 14:190400 SaO2% (BldA) [Mass fraction] 98 % Shantel Steven MD Work Phone: [facility] 07-20-2025 14:19-0400 Systolic blood pressure 170 mm[Hg] Shantel Steven MD Work Phone: [facility] 06-04-2025 10:170400 Body height 165.1 cm Shantel Steven MD Work Phone: [facility] 06-04-2025 10:17-0400 Body mass index (BMI) [Ratio] 43.9 kg/m2 Shantel Steven MD Work Phone: [facility] 06-04-2025 10:170400 Body weight 119.74 kg Shantel Steven MD Work Phone: [facility] 06-04-2025 10:17-0400 Diastolic blood pressure 71 mm[Hg] Shantel Steven MD Work Phone: [facility] 06-04-2025 10:17-0400 Heart rate 57 /min Shantel Steven MD Work Phone: [facility] 06-04-2025 10:17-0400 Systolic blood pressure 161 mm[Hg] Shantel Steven MD Work Phone: [facility] 05-21-2025 11:08-0400 Body height 165.1 cm Shantel Steven MD Work Phone: [facility] 05-21-2025 11:08-0400 Body mass index (BMI) [Ratio] 44.7 kg/m2 Shantel Steven MD Work Phone: [facility] 05-21-2025 11:08-0400 Body weight 122.07 kg Shantel Steven MD Work Phone: [facility] 05-21-2025 11:08-0400 Diastolic blood pressure 93 mm[Hg] Shantel Steven MD Work Phone: [facility] 05-21-2025 11:08-0400 Heart rate 70 /min Shantel Steven MD Work Phone: [facility] 05-21-2025 11:08-0400 Respiratory rate 14 /min Shantel Steven MD Work Phone: [facility] 05-21-2025 11:08-0400 SaO2% (BldA) [Mass fraction] 95 % Shantel Steven MD Work Phone: [facility] 05-21-2025 11:08-0400 Systolic blood pressure 180 mm[Hg] Shantel Steven MD Work Phone: [facility] 04-21-2025 14:20-0400 Body height 165.1 cm Shantel Steven MD Work Phone: [facility] 04-21-2025 14:20-0400 Body mass index (BMI) [Ratio] 42.4 kg/m2 Shantel Steven MD Work Phone: [facility] 04-21-2025 14:20-0400 Body weight 115.66 kg Shantel Steven MD Work Phone: [facility] 04-21-2025 14:20-0400 Diastolic blood pressure 80 mm[Hg] Shantel Steven MD Work Phone: [facility] 04-21-2025 14:20-0400 Heart rate 63 /min Shantel Steven MD Work Phone: [facility] 04-21-2025 14:20-0400 Systolic blood pressure 165 mm[Hg] Shantel Steven MD Work Phone: [facility] 04-16-2025 10:20-0400 Body height 165.1 cm Shantel Steven MD Work Phone: [facility] 04-16-2025 10:20-0400 Body mass index (BMI) [Ratio] 42.4 kg/m2 Shantel Steven MD Work Phone: [facility] 04-16-2025 10:20-0400 Body weight 115.66 kg Shantel Steven MD Work Phone: [facility] 04-16-2025 10:20-0400 Diastolic blood pressure 77 mm[Hg] Shantel Steven MD Work Phone: [facility] 04-16-2025 10:20-0400 Heart rate 63 /min Shantel Steven MD Work Phone: [facility] 04-16-2025 10:20-0400 Respiratory rate 12 /min Shantel Steven MD Work Phone: [facility] 04-16-2025 10:20-0400 SaO2% (BldA) [Mass fraction] 96 % Shantel Steven MD Work Phone: [facility] 04-16-2025 10:20-0400 Systolic blood pressure 137 mm[Hg] Shantel Steven MD Work Phone: [facility] 03-24-2025 13:57-0400 Body height 165.1 cm Shantel Steven MD Work Phone: [facility] 03-24-2025 13:57-0400 Body mass index (BMI) [Ratio] 42.3 kg/m2 Shantel Steven MD Work Phone: [facility] 03-24-2025 13:57-0400 Body weight 115.21 kg Shantel Steven MD Work Phone: [facility] 03-24-2025 13:57-0400 Diastolic blood pressure 76 mm[Hg] Shantel Steven MD Work Phone: [facility] 03-24-2025 13:57-0400 Heart rate 56 /min Shantel Steven MD Work Phone: [facility] 03-24-2025 13:57-0400 Systolic blood pressure 179 mm[Hg] Shantel Steven MD Work Phone: [facility] 03-12-2025 19:10-0400 Diastolic blood pressure 69 mm[Hg] Shantel Steven MD Work Phone: [facility] 03-12-2025 19:10-0400 Heart rate 57 /min Shantel Steven MD Work Phone: [facility] 03-12-2025 19:10-0400 Respiratory rate 18 /min Shantel Steven MD Work Phone: [facility] 03-12-2025 19:10-0400 SaO2% (BldA) [Mass fraction] 99 % Shantel Steven MD Work Phone: [facility] 03-12-2025 19:10-0400 Systolic blood pressure 164 mm[Hg] Shantel Steven MD Work Phone: [facility] 03-12-2025 13:45-0400 Body height 165.1 cm Shantel Steven MD Work Phone: [facility] 03-12-2025 13:45-0400 Body weight 114.7 kg Shantel Steven MD Work Phone: [facility] 03-12-2025 13:44-0400 Body temperature 97.6 [degF] Shantel Steven MD Work Phone: [facility] 03-10-2025 11:05-0400 Body height 165.1 cm [facility] 03-10-2025 11:05-0400 Body mass index (BMI) [Ratio] 41.1 kg/m2 [facility] 03-10-2025 11:05-0400 Body weight 112.1 kg [facility] 03-10-2025 11:05-0400 Diastolic blood pressure 70 mm[Hg] [facility] 03-10-2025 11:05-0400 Systolic blood pressure 145 mm[Hg] [facility] 02-19-2025 08:58-0400 Body height 165.1 cm [facility] 02-19-2025 08:58-0400 Body mass index (BMI) [Ratio] 41.1 kg/m2 [facility] 02-19-2025 08:58-0400 Body temperature 97.3 [degF] [facility] 02-19-2025 08:58-0400 Body weight 112.09 kg [facility] 02-19-2025 08:58-0400 Diastolic blood pressure 58 mm[Hg] [facility] 02-19-2025 08:58-0400 Heart rate 68 /min [facility] 02-19-2025 08:58-0400 Respiratory rate 18 /min [facility] 02-19-2025 08:58-0400 SaO2% (BldA) [Mass fraction] 96 % [facility] 02-19-2025 08:58-0400 Systolic blood pressure 147 mm[Hg] [facility] 02-09-2025 14:03-0400 Body height 165.1 cm [facility] 02-09-2025 14:03-0400 Body mass index (BMI) [Ratio] 42.5 kg/m2 [facility] 02-09-2025 14:03-0400 Body weight 116.11 kg [facility] 02-09-2025 14:03-0400 Diastolic blood pressure 78 mm[Hg] [facility] 02-09-2025 14:03-0400 Heart rate 79 /min [facility] 02-09-2025 14:03-0400 Respiratory rate 12 /min [facility] 02-09-2025 14:03-0400 Systolic blood pressure 185 mm[Hg] [facility] 01-14-2025 10:00-0500 Body height 165.1 cm Shantel Steven MD Work Phone: [facility] 01-14-2025 10:00-0500 Body mass index (BMI) [Ratio] 44.3 kg/m2 Shantel Steven MD Work Phone: [facility] 01-14-2025 10:00-0500 Body weight 120.88 kg Shantel Steven MD Work Phone: [facility] 01-14-2025 10:00-0500 Diastolic blood pressure 80 mm[Hg] Shantel Steven MD Work Phone: [facility] 01-14-2025 10:00-0500 Heart rate 66 /min Shantel Steven MD Work Phone: [facility] 01-14-2025 10:00-0500 SaO2% (BldA) [Mass fraction] 93 % Shantel Steven MD Work Phone: [facility] 01-14-2025 10:00-0500 Systolic blood pressure 176 mm[Hg] Shantel Steven MD Work Phone: [facility] 01-06-2025 15:22-0500 Body height 165.1 cm Shantel Steven MD Work Phone: [facility] 01-06-2025 15:22-0500 Body mass index (BMI) [Ratio] 44.7 kg/m2 Shantel Steven MD Work Phone: [facility] 01-06-2025 15:22-0500 Body weight 122.01 kg Shantel Steven MD Work Phone: [facility] 01-06-2025 15:22-0500 Diastolic blood pressure 83 mm[Hg] Shantel Steven MD Work Phone: [facility] 01-06-2025 15:22-0500 Heart rate 66 /min Shantel Steven MD Work Phone: [facility] 01-06-2025 15:22-0500 Systolic blood pressure 155 mm[Hg] Shantel Steven MD Work Phone: [facility] 12-26-2024 12:58-0500 Body height 165.1 cm Jorge Luis Tupa DO Work Phone: [facility] 12-26-2024 12:58-0500 Body mass index (BMI) [Ratio] 43.6 kg/m2 Jorge Luis Tupa DO Work Phone: [facility] 12-26-2024 12:58-0500 Body weight 118.84 kg Jorge Luis Tupa DO Work Phone: [facility] 12-26-2024 12:58-0500 Diastolic blood pressure 79 mm[Hg] Jorge Luis Tupa DO Work Phone: [facility] 12-26-2024 12:58-0500 Heart rate 92 /min Jorge Luis Tupa DO Work Phone: [facility] 12-26-2024 12:58-0500 SaO2% (BldA) [Mass fraction] 97 % Jorge Luis Tupa DO Work Phone: [facility] 12-26-2024 12:58-0500 Systolic blood pressure 175 mm[Hg] Jorge Luis Tupa DO Work Phone: [facility] 12-09-2024 13:33-0500 Body height 165.1 cm Jorge Luis Tupa DO Work Phone: [facility] 12-09-2024 13:33-0500 Body mass index (BMI) [Ratio] 43.4 kg/m2 Jorge Luis Tupa DO Work Phone: [facility] 12-09-2024 13:33-0500 Body weight 118.55 kg Jorge Luis Tupa DO Work Phone: [facility] 12-09-2024 13:33-0500 Diastolic blood pressure 83 mm[Hg] Jorge Luis Tupa DO Work Phone: [facility] 12-09-2024 13:33-0500 Heart rate 81 /min Jorge Luis Tupa DO Work Phone: [facility] 12-09-2024 13:33-0500 Respiratory rate 14 /min Jorge Luis Tupa DO Work Phone: [facility] 12-09-2024 13:33-0500 Systolic blood pressure 156 mm[Hg] Jorge Luis Tupa DO Work Phone: [facility] 11-11-2024 13:46-0500 Body height 165.1 cm Jorge Luis Tupa DO Work Phone: [facility] 11-11-2024 13:46-0500 Body mass index (BMI) [Ratio] 41.1 kg/m2 Jorge Luis Tupa DO Work Phone: [facility] 11-11-2024 13:46-0500 Body temperature 97.3 [degF] Jorge Luis Tupa DO Work Phone: [facility] 11-11-2024 13:46-0500 Body weight 112.03 kg Jorge Luis Tupa DO Work Phone: [facility] 11-11-2024 13:46-0500 Diastolic blood pressure 84 mm[Hg] Jorge Luis Tupa DO Work Phone: [facility] 11-11-2024 13:46-0500 Heart rate 95 /min Jorge Luis Tupa DO Work Phone: [facility] 11-11-2024 13:46-0500 Respiratory rate 16 /min Jorge Luis Tupa DO Work Phone: [facility] 11-11-2024 13:46-0500 SaO2% (BldA) [Mass fraction] 96 % Jorge Luis Tupa DO Work Phone: [facility] 11-11-2024 13:46-0500 Systolic blood pressure 145 mm[Hg] Jorge Luis Tupa DO Work Phone: [facility] 11-03-2024 11:43-0500 Body height 165.1 cm Jorge Luis Tupa DO Work Phone: [facility] 11-03-2024 11:43-0500 Body mass index (BMI) [Ratio] 41.1 kg/m2 Jorge Luis Tupa DO Work Phone: [facility] 11-03-2024 11:43-0500 Body weight 112.03 kg Jorge Luis Tupa DO Work Phone: [facility] 11-03-2024 11:43-0500 Diastolic blood pressure 70 mm[Hg] Jorge Luis Tupa DO Work Phone: [facility] 11-03-2024 11:43-0500 Heart rate 78 /min Jorge Luis Tupa DO Work Phone: [facility] 11-03-2024 11:43-0500 SaO2% (BldA) [Mass fraction] 97 % Jorge Luis Tupa DO Work Phone: [facility] 11-03-2024 11:43-0500 Systolic blood pressure 138 mm[Hg] Jorge Luis Tupa DO Work Phone: [facility] 10-25-2024 07:49-0500 Diastolic blood pressure 73 mm[Hg] Jorge Luis Tupa DO Work Phone: [facility] 10-25-2024 07:49-0500 Heart rate 85 /min Jorge Luis Tupa DO Work Phone: [facility] 10-25-2024 07:49-0500 Respiratory rate 18 /min Jorge Luis Tupa DO Work Phone: [facility] 10-25-2024 07:49-0500 SaO2% (BldA) [Mass fraction] 98 % Jorge Luis Tupa DO Work Phone: [facility] 10-25-2024 07:49-0500 Systolic blood pressure 135 mm[Hg] Jorge Luis Tupa DO Work Phone: [facility] 10-25-2024 05:58-0500 Body height 165.1 cm Jorge Luis Tupa DO Work Phone: [facility] 10-25-2024 05:58-0500 Body temperature 98 [degF] Jorge Luis Tupa DO Work Phone: [facility] 10-25-2024 05:58-0500 Body weight 122.92 kg Jorge Luis Tupa DO Work Phone: [facility] 10-22-2024 04:48-0500 Body height 165.1 cm Jorge Luis Tupa DO Work Phone: [facility] 10-22-2024 04:48-0500 Body temperature 98.5 [degF] Jorge Luis Tupa DO Work Phone: [facility] 10-22-2024 04:48-0500 Body weight 114.8 kg Jorge Luis Tupa DO Work Phone: [facility] 10-22-2024 04:48-0500 Diastolic blood pressure 68 mm[Hg] Jorge Luis Tupa DO Work Phone: [facility] 10-22-2024 04:48-0500 Heart rate 100 /min Jorge Luis Tupa DO Work Phone: [facility] 10-22-2024 04:48-0500 Respiratory rate 18 /min Jorge Luis Tupa DO Work Phone: [facility] 10-22-2024 04:48-0500 SaO2% (BldA) [Mass fraction] 97 % Jorge Luis Tupa DO Work Phone: [facility] 10-22-2024 04:48-0500 Systolic blood pressure 132 mm[Hg] Jorge Luis Tupa DO Work Phone: [facility] 10-20-2024 12:00-0500 Body temperature 97.4 [degF] Jorge Luis Tupa DO Work Phone: [facility] 10-20-2024 12:00-0500 Diastolic blood pressure 73 mm[Hg] Jorge Luis Tupa DO Work Phone: [facility] 10-20-2024 12:00-0500 Heart rate 98 /min Jorge Luis Tupa DO Work Phone: [facility] 10-20-2024 12:00-0500 Respiratory rate 20 /min Jorge Luis Tupa DO Work Phone: [facility] 10-20-2024 12:00-0500 SaO2% (BldA) [Mass fraction] 98 % Jorge Luis Tupa DO Work Phone: [facility] 10-20-2024 12:00-0500 Systolic blood pressure 116 mm[Hg] Jorge Luis Tupa DO Work Phone: [facility] 10-20-2024 05:57-0500 Body weight 110.9 kg Jorge Luis Tupa DO Work Phone: [facility] 10-17-2024 14:18-0500 Body height 165.1 cm Jorge Luis Tupa DO Work Phone: [facility] 10-01-2024 09:51-0500 Body height 165.1 cm Christel Chacon MD Work Phone: [facility] 10-01-2024 09:51-0500 Body mass index (BMI) [Ratio] 42.27 kg/m2 Christel Chacon MD Work Phone: [facility] 10-01-2024 09:51-0500 Body weight 115.21 kg Christel Chacon MD Work Phone: [facility] 10-01-2024 09:51-0500 Diastolic blood pressure 110 mm[Hg] Christel Chacon MD Work Phone: [facility] 10-01-2024 09:51-0500 Systolic blood pressure 138 mm[Hg] Christel Chacon MD Work Phone: [facility] 08-07-2024 10:04-0400 Body height 165.1 cm MD Shantel Steven Work Phone: [facility] 08-07-2024 10:04-0400 Body mass index (BMI) [Ratio] 43.1 kg/m2 MD Shantel Steven Work Phone: [facility] 08-07-2024 10:04-0400 Body weight 117.48 kg MD Shantel Steven Work Phone: [facility] 08-07-2024 10:04-0400 Diastolic blood pressure 69 mm[Hg] MD Shantel Steven Work Phone: [facility] 08-07-2024 10:04-0400 Heart rate 52 /min MD Shantel Steven Work Phone: [facility] 08-07-2024 10:04-0400 SaO2% (BldA) [Mass fraction] 93 % MD Shantel Steven Work Phone: [facility] 08-07-2024 10:04-0400 Systolic blood pressure 117 mm[Hg] MD Shantel Steven Work Phone: [facility] 07-22-2024 13:15-0400 Body height 165.1 cm Christel Chacon MD Work Phone: [facility] 07-22-2024 13:15-0400 Body mass index (BMI) [Ratio] 42.6 kg/m2 Christel Chacon MD Work Phone: [facility] 07-22-2024 13:15-0400 Body weight 116.12 kg Christel Chacon MD Work Phone: [facility] 07-22-2024 13:15-0400 Diastolic blood pressure 82 mm[Hg] Christel Chacon MD Work Phone: [facility] 07-22-2024 13:15-0400 Systolic blood pressure 130 mm[Hg] Christel Chacon MD Work Phone: [facility] 07-16-2024 10:20-0400 Body height 165.1 cm MD Shantel Steven Work Phone: [facility] 07-16-2024 10:20-0400 Body mass index (BMI) [Ratio] 43.1 kg/m2 MD Shantel Steven Work Phone: [facility] 07-16-2024 10:20-0400 Body weight 117.48 kg MD Shantel Steven Work Phone: [facility] 07-16-2024 10:20-0400 Diastolic blood pressure 80 mm[Hg] MD Shantel Steven Work Phone: [facility] 07-16-2024 10:20-0400 Heart rate 60 /min MD Shantel Steven Work Phone: [facility] 07-16-2024 10:20-0400 Systolic blood pressure 151 mm[Hg] MD Shantel Steven Work Phone: [facility] 07-10-2024 13:40-0400 Body height 165.1 cm Lizett Gillmor [employer]TE[employer] Work Phone: [facility] 07-10-2024 13:40-0400 Body mass index (BMI) [Ratio] 42.43 kg/m2 Lizett Gillmor [employer]TENA[employer] Work Phone: [facility] 07-10-2024 13:40-0400 Body weight 115.67 kg Lizett Gillmor MA[employer]TENA[employer]CE [employer]BER Work Phone: [facility] 07-10-2024 13:40-0400 Diastolic blood pressure 86 mm[Hg] Lizett Gillmor MA[employer]TENA[employer]CE TE[employer]BER Work Phone: [facility] 07-10-2024 13:40-0400 Systolic blood pressure 132 mm[Hg] Lizett Gillmor MAINTENA[employer]CE TE[employer]BER Work Phone: [facility] 07-07-2024 11:41-0400 Body height 165.1 cm MD Shantel Steven Work Phone: [facility] 07-07-2024 11:41-0400 Body mass index (BMI) [Ratio] 42.4 kg/m2 MD Shantel Steven Work Phone: [facility] 07-07-2024 11:41-0400 Body weight 115.66 kg MD Shantel Steven Work Phone: [facility] 07-07-2024 11:41-0400 Diastolic blood pressure 79 mm[Hg] MD Shantel Steven Work Phone: [facility] 07-07-2024 11:41-0400 Heart rate 66 /min MD Shantel Steven Work Phone: [facility] 07-07-2024 11:41-0400 Systolic blood pressure 132 mm[Hg] MD Shantel Steven Work Phone: [facility] 06-16-2024 13:08-0400 Body height 165.1 cm MD Shantel Steven Work Phone: [facility] 06-16-2024 13:08-0400 Body mass index (BMI) [Ratio] 41.9 kg/m2 MD Shantel Steven Work Phone: [facility] 06-16-2024 13:08-0400 Body weight 114.3 kg MD Shantel Steven Work Phone: [facility] 06-16-2024 13:08-0400 Diastolic blood pressure 73 mm[Hg] MD Shantel Steven Work Phone: [facility] 06-16-2024 13:08-0400 Heart rate 55 /min MD Shantel Steven Work Phone: [facility] 06-16-2024 13:08-0400 Systolic blood pressure 137 mm[Hg] MD Shantel Steven Work Phone: [facility] 06-05-2024 11:51-0400 Body height 165.1 cm MD Shantel Steven Work Phone: [facility] 06-05-2024 11:51-0400 Body mass index (BMI) [Ratio] 43.2 kg/m2 MD Shantel Steven Work Phone: [facility] 06-05-2024 11:51-0400 Body temperature 96.6 [degF] MD Shantel Steven Work Phone: [facility] 06-05-2024 11:51-0400 Body weight 117.7 kg MD Shantel Steven Work Phone: [facility] 06-05-2024 11:51-0400 Diastolic blood pressure 74 mm[Hg] MD Shantel Steven Work Phone: [facility] 06-05-2024 11:51-0400 Heart rate 63 /min MD Shantel Steven Work Phone: [facility] 06-05-2024 11:51-0400 Respiratory rate 18 /min MD Shantel Steven Work Phone: [facility] 06-05-2024 11:51-0400 SaO2% (BldA) [Mass fraction] 97 % MD Shantel Steven Work Phone: [facility] 06-05-2024 11:51-0400 Systolic blood pressure 138 mm[Hg] MD Shantel Steven Work Phone: [facility] 05-22-2024 09:18-0400 Heart rate 55 /min MD Shantel Steven Work Phone: [facility] 05-22-2024 09:09-0400 Body temperature 97.8 [degF] MD Shantel Steven Work Phone: [facility] 05-22-2024 09:09-0400 Diastolic blood pressure 64 mm[Hg] MD Shantel Steven Work Phone: [facility] 05-22-2024 09:09-0400 Respiratory rate 22 /min MD Shantel Steven Work Phone: [facility] 05-22-2024 09:09-0400 SaO2% (BldA) [Mass fraction] 94 % MD Shantel Steven Work Phone: [facility] 05-22-2024 09:09-0400 Systolic blood pressure 140 mm[Hg] MD Shantel Steven Work Phone: [facility] 05-22-2024 09:08-0400 Body height 165.1 cm MD Shantel Steven Work Phone: [facility] 05-22-2024 09:08-0400 Body weight 117.48 kg MD Shantel Steven Work Phone: [facility] 05-19-2024 14:16-0400 Body height 165.1 cm MD Shantel Steven Work Phone: [facility] 05-19-2024 14:16-0400 Body mass index (BMI) [Ratio] 43.1 kg/m2 MD Shantel Steven Work Phone: [facility] 05-19-2024 14:16-0400 Body weight 117.48 kg MD Shantel Steven Work Phone: [facility] 05-19-2024 14:16-0400 Diastolic blood pressure 72 mm[Hg] MD Shantel Steven Work Phone: [facility] 05-19-2024 14:16-0400 Heart rate 56 /min MD Shantel Steven Work Phone: [facility] 05-19-2024 14:16-0400 Systolic blood pressure 133 mm[Hg] MD Shantel Steven Work Phone: [facility] 05-07-2024 11:52-0400 Body height 165.1 cm MD Shantel Steven Work Phone: [facility] 05-07-2024 11:52-0400 Body mass index (BMI) [Ratio] 41.5 kg/m2 MD Shantel Steven Work Phone: [facility] 05-07-2024 11:52-0400 Body temperature 98.5 [degF] MD Shantel Steven Work Phone: [facility] 05-07-2024 11:52-0400 Body weight 113.39 kg MD Shantel Steven Work Phone: [facility] 05-07-2024 11:52-0400 Diastolic blood pressure 81 mm[Hg] MD Shantel Steven Work Phone: [facility] 05-07-2024 11:52-0400 Heart rate 91 /min MD Shantel Steven Work Phone: [facility] 05-07-2024 11:52-0400 Systolic blood pressure 141 mm[Hg] MD Shantel Steven Work Phone: [facility] 04-29-2024 12:54-0400 Body height 165.1 cm MD Shantel Steven Work Phone: [facility] 04-29-2024 12:54-0400 Body mass index (BMI) [Ratio] 41.5 kg/m2 MD Shantel Steven Work Phone: [facility] 04-29-2024 12:54-0400 Body weight 113.39 kg MD Shantel Steven Work Phone: [facility] 04-29-2024 12:54-0400 Diastolic blood pressure 58 mm[Hg] MD Shantel Steven Work Phone: [facility] 04-29-2024 12:54-0400 Heart rate 54 /min MD Shantel Steven Work Phone: [facility] 04-29-2024 12:54-0400 Systolic blood pressure 90 mm[Hg] MD Shantel Steven Work Phone: [facility] 04-03-2024 11:29-0400 Body height 165.1 cm MD Shantel Steven Work Phone: [facility] 04-03-2024 11:29-0400 Body mass index (BMI) [Ratio] 43.7 kg/m2 MD Shantel Steven Work Phone: [facility] 04-03-2024 11:29-0400 Body weight 119.29 kg MD Shantel Steven Work Phone: [facility] 04-03-2024 11:29-0400 Diastolic blood pressure 71 mm[Hg] MD Shantel Steven Work Phone: [facility] 04-03-2024 11:29-0400 Heart rate 56 /min MD Shantel Steven Work Phone: [facility] 04-03-2024 11:29-0400 Systolic blood pressure 116 mm[Hg] MD Shantel Steven Work Phone: [facility] 03-25-2024 15:15-0400 Body height 165.1 cm MD Shantel Steven Work Phone: [facility] 03-25-2024 15:15-0400 Body mass index (BMI) [Ratio] 43.9 kg/m2 MD Shantel Steven Work Phone: [facility] 03-25-2024 15:15-0400 Body weight 119.74 kg MD Shantel Steven Work Phone: [facility] 03-25-2024 15:15-0400 Diastolic blood pressure 87 mm[Hg] MD Shantel Steven Work Phone: [facility] 03-25-2024 15:15-0400 Heart rate 66 /min MD Shantel Steven Work Phone: [facility] 03-25-2024 15:15-0400 Systolic blood pressure 125 mm[Hg] MD Shantel Steven Work Phone: [facility] 02-15-2024 14:18-0400 Body height 165.1 cm [facility] 02-15-2024 14:18-0400 Body mass index (BMI) [Ratio] 38.6 kg/m2 [facility] 02-15-2024 14:18-0400 Body weight 105.23 kg [facility] 02-15-2024 14:18-0400 Diastolic blood pressure 66 mm[Hg] [facility] 02-15-2024 14:18-0400 Heart rate 55 /min [facility] 02-15-2024 14:18-0400 Systolic blood pressure 114 mm[Hg] [facility] 01-18-2024 10:23-0500 Body height 165.1 cm [facility] 01-18-2024 10:23-0500 Body mass index (BMI) [Ratio] 43.2 kg/m2 [facility] 01-18-2024 10:23-0500 Body weight 117.93 kg [facility] 01-18-2024 10:23-0500 Diastolic blood pressure 70 mm[Hg] [facility] 01-18-2024 10:23-0500 Heart rate 98 /min [facility] 01-18-2024 10:23-0500 SaO2% (BldA) [Mass fraction] 65 % [facility] 01-18-2024 10:23-0500 Systolic blood pressure 110 mm[Hg] [facility] 10-23-2023 16:00-0500 Body height 165.1 cm Azghassan Kochs Other [facility] [employer] Other 10-23-2023 16:00-0500 Body mass index (BMI) [Ratio] 44.63 kg/m2 Azghassan Bakhous Other [employer] Other 10-23-2023 16:00-0500 Body temperature 96.8 [degF] Aziz Bakhous Other [employer] Other 10-23-2023 16:00-0500 Body weight 121.66 kg Aziz Bakhous Other [employer] Other 10-23-2023 16:00-0500 Diastolic blood pressure 60 mm[Hg] Aziz Bakhous Other [employer] Other 10-23-2023 16:00-0500 Respiratory rate 18 /min Aziz Bakhous Other [employer] Other 10-23-2023 16:00-0500 SaO2% (BldA) [Mass fraction] 99 % Aziz Bakhous Other [employer] Other 10-23-2023 16:00-0500 Systolic blood pressure 124 mm[Hg] Jaleesa Vanessa Other [employer] Other 10-18-2023 13:45-0500 Body height 165.1 cm Shantel Steven Other [employer] Other 10-18-2023 13:45-0500 Body mass index (BMI) [Ratio] 44.86 kg/m2 Shantel Steven Other [employer] Other 10-18-2023 13:45-0500 Body temperature 97.3 [degF] Shantel Steven Other [employer] Other 10-18-2023 13:45-0500 Body weight 122.29 kg Shantel Steven Other [employer] Other 10-18-2023 13:45-0500 Diastolic blood pressure 84 mm[Hg] Shantel Steven Other [employer] Other 10-18-2023 13:45-0500 SaO2% (BldA) [Mass fraction] 97 % Shantel Steven Other [employer] Other 10-18-2023 13:45-0500 Systolic blood pressure 132 mm[Hg] Shantel Steven Other [employer] Other 09-04-2023 14:00-0400 Body height 165.1 cm Shantel Steven Other [employer] Other 09-04-2023 14:00-0400 Body mass index (BMI) [Ratio] 43.06 kg/m2 Shantel Steven Other [employer] Other 09-04-2023 14:00-0400 Body weight 117.39 kg Shantel Steven Other [employer] Other 09-04-2023 14:00-0400 Diastolic blood pressure 69 mm[Hg] Shantel Steven Other [employer] Other 09-04-2023 14:00-0400 Systolic blood pressure 127 mm[Hg] Shantel Steven Other [employer] Other 07-17-2023 10:00-0400 Body height 165.1 cm Shantel Steven Other [employer] Other 07-17-2023 10:00-0400 Body mass index (BMI) [Ratio] 43.03 kg/m2 Shantel Steven Other [employer] Other 07-17-2023 10:00-0400 Body weight 117.3 kg Shantel Steven Other [employer] Other 07-17-2023 10:00-0400 Diastolic blood pressure 76 mm[Hg] Shantel Steven Other [employer] Other 07-17-2023 10:00-0400 Systolic blood pressure 164 mm[Hg] Shantel Steven Other [employer] Other 04-30-2023 14:30-0400 Body height 165.1 cm Shantel Steven Other [employer] Other 04-30-2023 14:30-0400 Body mass index (BMI) [Ratio] 43.43 kg/m2 Shantel Steven Other [employer] Other 04-30-2023 14:30-0400 Body weight 118.39 kg Shantel Steven Other [employer] Other 04-30-2023 14:30-0400 Diastolic blood pressure 75 mm[Hg] Shantel Steven Other [employer] Other 04-30-2023 14:30-0400 Systolic blood pressure 135 mm[Hg] Shantel Steven Other [employer] Other 03-09-2023 12:15-0400 Body height 165.1 cm Shantel Steven Other [employer] Other 03-09-2023 12:15-0400 Body mass index (BMI) [Ratio] 43.59 kg/m2 Shantel Steven Other [employer] Other 03-09-2023 12:15-0400 Body weight 118.84 kg Shantel Steven Other [employer] Other 03-09-2023 12:15-0400 Diastolic blood pressure 82 mm[Hg] Shantel Steven Other [employer] Other 03-09-2023 12:15-0400 SaO2% (BldA) [Mass fraction] 97 % Shantel Steven Other [employer] Other 03-09-2023 12:15-0400 Systolic blood pressure 130 mm[Hg] Shantel Steven Other [employer] Other 02-20-2023 10:00-0400 Body height 165.1 cm Shantel Steven Other [employer] Other 02-20-2023 10:00-0400 Body mass index (BMI) [Ratio] 41.93 kg/m2 Shantel Steven Other [employer] Other 02-20-2023 10:00-0400 Body weight 114.31 kg Shantel Steven Other [employer] Other 02-20-2023 10:00-0400 Diastolic blood pressure 84 mm[Hg] Shantel Steven Other [employer] Other 02-20-2023 10:00-0400 Systolic blood pressure 132 mm[Hg] Shantel Steven Other [employer] Other 08-04-2022 13:33-0400 Blood Pressure Location [facility] 08-04-2022 13:33-0400 Diastolic blood pressure 88 mm[Hg] [facility] 08-04-2022 13:33-0400 Heart rate 76 /min [facility] 08-04-2022 13:33-0400 Respiratory rate 16 /min [facility] 08-04-2022 13:33-0400 Systolic blood pressure 130 mm[Hg] [facility] 08-25-2021 14:30-0400 Body height 165.1 cm Akbar Cui II Other [employer] Other 08-25-2021 14:30-0400 Body mass index (BMI) [Ratio] 43.26 kg/m2 Akbar Bladen II Other [employer] Other 08-25-2021 14:30-0400 Body weight 117.94 kg Akbar Bladen II Other [employer] Other Encounters Encounter Date Encounter Type Care Provider Facility Start: 08-20-2025 End: 08-20-2025 ambulatory Shantel Steven MD Work Phone: [facility] Work Phone: Start: 08-20-2025 End: 08-20-2025 Castillo Ross DO -[facility] Start: 08-17-2025 End: 08-17-2025 ambulatory Shantel Steven MD Work Phone: [facility] Work Phone: Start: 08-17-2025 End: 08-17-2025 Lizett Ross MANAGER BEAUTY -[facility] Work Phone: Start: 08-05-2025 End: 08-05-2025 ambulatory Shantel Steven MD Work Phone: [facility] Work Phone: Start: 08-05-2025 End: 08-05-2025 Shantel Steven MD -[facility] Work Phone: Start: 08-03-2025 Wandy Alvarez CMA -[facility] Work Phone: Start: 07-29-2025 End: 08-01-2025 Evaluation and management of inpatient Shantel Steven MD Work Phone: [facility] Work Phone: Start: 07-29-2025 End: 08-01-2025 Chasity Castro MD -[facility] Work Phone: Start: 07-24-2025 Wandy Alvarez CMA -[facility] Work Phone: Start: 07-23-2025 Monica Stewart MD -[facility] Work Phone: Start: 07-22-2025 Shantel Steven MD -[facility] Work Phone: Start: 07-20-2025 End: 07-20-2025 ambulatory Shantel Steven MD Work Phone: [facility] Work Phone: Start: 07-20-2025 End: 07-20-2025 Shantel Steven MD -[facility] Work Phone: Start: 07-01-2025 Wandy Alvarez MANAGER BUSINESS INFORMATION -[facility] Work Phone: Start: 07-01-2025 Wandy Alvarez MANAGER BUSINESS INFORMATION -[facility] Work Phone: Start: 06-30-2025 Monica Stewart MD -[facility] Work Phone: Start: 06-29-2025 Monica Stewart MD -[facility] Work Phone: Start: 06-28-20[facility] Start: 06-22-2025 Wandy Alvarez CMA -[facility] Work Phone: Start: 06-19-2025 Outside Provider -[facility] Work Phone: Start: 06-15-2025 End: 06-15-2025 ambulatory Shantel Steven MD Work Phone: [facility] Work Phone: Start: 06-15-2025 End: 06-15-2025 Shantel Setven MD -[facility] Work Phone: Start: 06-10-2025 Wandy Alvarez CMA -[facility] Work Phone: Start: 06-10-2025 Osbaldo Marlow MD -[facility] Work Phone: Start: 06-09-2025 Osbaldo Marlow MD -[facility] Work Phone: Start: 06-08-2025 [facility] Work [facility]: Start: 06-04-2025 End: 06-04-2025 ambulatory Shantel Steven MD Work Phone: [facility] Work Phone: Start: 06-04-2025 End: 06-04-2025 Shantel Steven MD -[facility] Work Phone: Start: 06-02-2025 End: 06-02-2025 ambulatory Shantel Steven MD Work Phone: [facility] Work Phone: Start: 06-02-2025 End: 06-02-2025 Shantel Steven MD -[facility] Work Phone: Start: 05-31-2025 Monica Stewart MD -[facility] Work Phone: Start: 05-30-2025 Monica Stewart MD -[facility] Work Phone: Start: 05-29-2025 Monica Stewart MD -[facility] Work Phone: Start: 05-28-2025 Analisa Bryant MD [facility] Work Phone: Start: 05-21-2025 End: 05-21-2025 ambulatory Shantel Steven MD Work Phone: [facility] Work Phone: Start: 05-21-2025 End: 05-21-2025 Patient encounter procedure Shantel Steven MD -[facility] Work Phone: Start: 05-21-2025 End: 05-21-2025 Shantel Steven MD -[facility] Work Phone: Start: 05-13-2025 Non-patient / Non-visit Wandy Bowen MANAGER BUSINESS INFORMATION -[facility] Work Phone: Start: 05-13-2025 Wandy Alvarez MANAGER BUSINESS INFORMATION -[facility] Work Phone: Start: 05-11-2025 Non-patient / Non-visit Cheng Ross [facility] Work Phone: Start: 05-11-2025 Cheng Ross MANAGER BEAUTY [facility] Work Phone: Start: 04-22-2025 End: 04-22-2025 ambulatory [facility] Start: 04-21-2025 End: 04-21-2025 ambulatory Shantel Steven MD Work Phone: [facility] Work Phone: Start: 04-21-2025 End: 04-21-2025 Patient encounter procedure Cheng Ross APRN -[facility] Work Phone: Start: 04-21-2025 End: 04-21-2025 Shantel Steven MD Work Phone: [facility] Physician [facility] Work Phone: Start: 04-16-2025 End: 04-16-2025 ambulatory Shantel Steven MD Work Phone: [facility] Work Phone: Start: 04-16-2025 End: 04-16-2025 Patient encounter procedure Shantel Steven MD -[facility] Work Phone: Start: 04-16-2025 End: 04-16-2025 Shantel Steven MD Work Phone: [facility] Physician [facility] Work Phone: Start: 03-24-2025 End: 03-24-2025 ambulatory Shantel Steven MD Work Phone: [facility] Work Phone: Start: 03-24-2025 End: 03-24-2025 Patient encounter procedure Sahntel Steven MD -[facility] Work Phone: Start: 03-24-2025 End: 03-24-2025 Shantel Steven MD Work Phone: [facility] Physician [facility] Work Phone: Start: 03-13-2025 Non-patient / Non-visit Wandy Bowen CMA -[facility] Work Phone: Start: 03-13-2025 Shantel Cardona Work Phone: [facility] Physician [facility] Work Phone: Start: 03-12-2025 End: 03-12-2025 Shantel Steven MD Work Phone: [facility] Work Phone: Start: 03-12-2025 End: 03-12-2025 Emergency department patient visit Shantel Steven MD Work Phone: [facility] Work Phone: Start: 03-10-2025 End: 03-10-2025 ambulatory [facility] Work Phone: Start: 03-10-2025 End: 03-10-2025 Patient encounter procedure [facility] Physician [facility] Work Phone: Start: 03-10-2025 End: 03-10-2025 Shantel Steven MD Work Phone: [facility] Physician [facility] Work Phone: Start: 03-02-2025 End: 03-02-2025 ambulatory [facility] Start: 03-02-2025 Non-patient / Non-visit [facility] Physician [facility] Work Phone: Start: 03-02-2025 Shantel Cardona Work Phone: [facility] Physician [facility] Work Phone: Start: 02-19-2025 End: 02-19-2025 ambulatory [facility] Work Phone: Start: 02-19-2025 End: 02-19-2025 Patient encounter procedure [facility] Physician [facility] Work Phone: Start: 02-19-2025 End: 02-19-2025 Shantel Steven MD Work Phone: [facility] Physician [facility] Work Phone: Start: 02-09-2025 End: 02-09-2025 ambulatory [facility] Work Phone: Start: 02-09-2025 End: 02-09-2025 Patient encounter procedure [facility] Physician [facility] Work Phone: Start: 02-09-2025 End: 02-09-2025 Shantel Steven MD Work Phone: [facility] Physician [facility] Work Phone: Start: 01-28-2025 End: 01-28-2025 ambulatory [facility] Start: 01-28-2025 Non-patient / Non-visit [facility] Physician [facility] Work Phone: Start: 01-28-2025 Shantel Cardona Work Phone: [facility] Work Phone: Start: 01-27-2025 Non-patient / Non-visit [facility] Work Phone: Start: 01-27-2025 Shantel Cardona Work Phone: [facility] Work Phone: Start: 01-26-2025 Non-patient / Non-visit [facility] Work Phone: Start: 01-26-2025 Shantel Cardona Work Phone: [facility] Work Phone: Start: 01-25-2025 Non-patient / Non-visit [facility] Physician [facility] Work Phone: Start: 01-25-2025 Shantel Cardona Work Phone: [facility] Work Phone: Start: 01-21-2025 End: 01-21-2025 ambulatory Shantel Steven MD Work Phone: [facility] Work Phone: Start: 01-21-2025 End: 01-21-2025 Patient encounter procedure Shantel Steven MD Work Phone: [facility] Physician [facility] Work Phone: Start: 01-21-2025 End: 01-21-2025 Shantel Steven MD Work Phone: [facility] Physician [facility] Work Phone: Start: 01-14-2025 End: 01-14-2025 ambulatory Shantel Steven MD Work Phone: [facility] Work Phone: Start: 01-14-2025 End: 01-14-2025 Patient encounter procedure Shantel Steven MD Work Phone: [facility] Work Phone: Start: 01-14-2025 End: 01-14-2025 Shantel Steven MD Work Phone: [facility] Work Phone: Start: 01-07-2025 End: 01-07-2025 Telephone encounter Christel Chacon MD Work Phone: [facility] Comment on above: referral to Dr Estrada baer Start: 01-06-2025 End: 01-06-2025 Patient encounter procedure Shantel Steven MD Work Phone: [facility] Physician [facility] Work Phone: Start: 01-06-2025 End: 01-06-2025 Shantel Steven MD Work Phone: [facility] Physician [facility] Work Phone: Start: 01-06-2025 End: 01-06-2025 Telephone encounter Christel Chacon MD Work Phone: [facility] Comment on above: sleep study appt Start: 12-26-2024 End: 12-26-2024 ambulatory Jorge Luis Zavala DO Work Phone: [facility] Work Phone: Start: 12-26-2024 End: 12-26-2024 Patient encounter procedure Jorge Luis Zavala DO Work Phone: [facility] Work Phone: Start: 12-26-2024 End: 12-26-2024 Shantel Steven MD Work Phone: [facility] Work Phone: Start: 12-18-2024 End: 12-18-2024 ambulatory FRANCHESCA PERAZA Facility:[facility] Start: 12-18-2024 End: 12-18-2024 Patient encounter procedure FRANCHESCA PERAZA [facility] Start: 12-09-2024 End: 12-09-2024 Patient encounter procedure Jorge Luis Zavala DO Work Phone: [facility] Work Phone: Start: 12-08-2024 Non-patient / Non-visit Oni k Ramanpa DO Work Phone: [facility] Work Phone: Start: 12-08-2024 End: 12-08-2024 ambulatory FRANCHESCA E STU Facility:[facility] Start: 12-08-2024 End: 12-08-2024 Patient encounter procedure FRANCHESCA CUELLARRY [facility] Start: 12-04-2024 Non-patient / Non-visit Oni miranda Ramanpa DO Work Phone: [facility] Work Phone: Start: 12-04-2024 Non-patient / Non-visit Oni k Tupa DO Work Phone: [facility] Work Phone: Start: 12-02-2024 End: 12-02-2024 ambulatory [facility] Start: 11-13-2024 End: 11-13-2024 ambulatory FRANCHESCA E STU Facility:[facility] Start: 11-13-2024 End: 11-13-2024 Patient encounter procedure FRANCHESCA E STU [facility] Start: 11-11-2024 End: 11-11-2024 Patient encounter procedure Jorge Luis Tupa DO Work Phone: [facility] Work Phone: Start: 11-10-2024 Non-patient / Non-visit Oni k Tupa DO Work Phone: [facility] Work Phone: Start: 11-06-2024 ambulatory FRANCHESCA E STU Facili ty:[facility] Start: 11-04-2024 End: 11-04-2024 ambulatory FRANCHESCA E STU Facility:[facility] [place] Start: 11-04-2024 End: 11-04-2024 Patient encounter procedure [facility] Start: 11-03-2024 End: 11-03-2024 Patient encounter procedure Jorge Luis Tupa DO Work Phone: [facility] Work Phone: Start: 10-31-2024 ambulatory [facility] Start: 10-25-2024 End: 10-25-2024 Emergency department patient visit Jorge Luis Tupa DO Work Phone: [facility] Work Phone: Start: 10-24-2024 Non-patient / Non-visit Oni k Tupa DO Work Phone: [facility] Work Phone: Start: 10-22-2024 End: 10-22-2024 Emergency department patient visit Jorge Luis Tupa DO Work Phone: [facility] Work Phone: Start: 10-21-2024 Non-patient / Non-visit Oni k Tupa DO Work Phone: [facility]ician [facility] Work Phone: Start: 10-17-2024 Non-patient / Non-visit Oni k Tupa DO Work Phone: [facility] Physician [facility] Cardiology Work Phone: Start: 10-17-2024 Non-patient / Non-visit Oni k Tupa DO Work Phone: [facility] Physician [facility] Pulmonary Work Phone: Start: 10-16-2024 Non-patient / Non-visit Oni k Tupa DO Work Phone: [facility] Physician [facility] Work Phone: Start: 10-16-2024 End: 10-20-2024 Evaluation and management of inpatient Jorge Luis Tupa DO Work Phone: [facility] [place] [facility] Work Phone: Start: 10-08-2024 End: 10-08-2024 ambulatory [facility] Start: 10-01-2024 End: 10-01-2024 Bamboo flowsheet [...] / Non-visit Oni Zavala DO Work Phone: [facility] Work Phone: Start: 09-26-2024 End: 09-30-2024 Telephone encounter Christel Chacon MD Work Phone: [facility] Start: 09-03-2024 ambulatory [facility] Start: 08-20-2024 End: 08-20-2024 ambulatory [facility] Start: 08-07-2024 End: 08-07-2024 ambulatory MD Shantel Steven Work Phone: [facility] Work Phone: Start: 08-07-2024 End: 08-07-2024 Patient encounter procedure MD Shantel Steven Work Phone: [facility] Work Phone: Start: 07-30-2024 Non-patient / Non-visit MD Alessia Steven Work Phone: [facility] Work Phone: Start: 07-25-2024 Non-patient / Non-visit MD Alessia Steven Work Phone: [facility] Work Phone: Start: 07-24-2024 Non-patient / Non-visit MD Alessia Steven Work Phone: [facility] Work Phone: Start: 07-22-2024 End: [...] 07-17-2024 ambulatory MD Shantel Steven Work Phone: [facility] Work Phone: Start: 07-17-2024 End: 07-17-2024 Departed Referred MD Shantel Steven Work Phone: [facility] [place] Work Phone: Start: 07-17-2024 End: 07-17-2024 MD Shantel Steven Work Phone: [facility] Work Phone: Start: 07-16-2024 End: 07-16-2024 ambulatory MD Shantel Steven Work Phone: [facility] Work Phone: Start: 07-16-2024 End: 07-16-2024 Patient encounter procedure MD Shantel Steven Work Phone: [facility] Work Phone: Start: 07-16-2024 End: 07-16-2024 MD Shantel Steven Work Phone: [facility] Work Phone: Start: 07-15-2024 End: 07-15-2024 Non-patient / Non-visit MD Shantel Steven Work Phone: [facility] Work Phone: Start: 07-15-2024 Non-patient / Non-visit MD Alessia Steven Work Phone: [facility] Work Phone: Start: 07-15-2024 MD Shantel painting Work Phone: [facility] Work Phone: Start: 07-14-2024 Non-patient / Non-visit MD Alessia Steven Work Phone: [facility] Work Phone: Start: 07-14-2024 MD Shantel painting Work Phone: [facility] Work Phone: Start: 07-10-2024 End: 07-10-2024 Bamboo flowsheet Lizett aJcinto MAINTENANCE TEAM MEMBER Work Phone: [facility] [place] [facility] Start: 07-10-2024 End: 07-10-2024 Bamboo flowsheet Lizett Jacinto MAINTENANCE TEAM MEMBER Work Phone: [facility] [facility] Start: 07-10-2024 End: 07-10-2024 Office outpatient visit 25 minutes Lizett Jacinto MAINTENANCE TEAM MEMBER Work Phone: [facility] [place] [facility] Comment on above: Essential tremor (Pr imary Dx); Diabetic polyneuropathy associated with type 2 diabetes mellitus ([facility]); Balance disorder; Sensory ataxia; Debility; Weakness; Paresthesias Start: 07-10-2024 End: 07-10-2024 ambulatory LIZETT JACINTO Not Available Start: 07-07-2024 End: 07-07-2024 ambulatory MD Shantel Steven Work Phone: [facility] Work Phone: Start: 07-07-2024 End: 07-07-2024 Patient encounter procedure MD Shantel Steven Work Phone: [facility] Work Phone: Start: 07-07-2024 End: 07-07-2024 MD Shantel Steven Work Phone: [facility] Work Phone: Start: 06-25-2024 ambulatory MD Shantel gray Work Phone: [facility] Work Phone: Start: 06-25-2024 Non-patient / Non-visit MD Alessia Steven Work Phone: [facility] Work Phone: Start: 06-25-2024 MD Shantel painting Work Phone: [facility] Work Phone: Start: 06-24-2024 Non-patient / Non-visit MD Alessia Steven Work Phone: [facility] Work Phone: Start: 06-24-2024 MD Shantel painting Work Phone: [facility] Work Phone: Start: 06-16-2024 End: 06-16-2024 ambulatory MD Shantel Steven Work Phone: [facility] Work Phone: Start: 06-16-2024 End: 06-16-2024 Patient encounter procedure MD Shantel Steven Work Phone: [facility] Work Phone: Start: 06-16-2024 End: 06-16-2024 MD Shantel Steven Work Phone: [facility] Physician [facility] Work Phone: Start: 06-10-2024 Non-patient / Non-visit MD Alessia Steven Work Phone: [facility] Work Phone: Start: 06-10-2024 MD Shantel painting Work Phone: [facility] Work Phone: Start: 06-09-2024 Non-patient / Non-visit MD Alessia Steven Work Phone: [facility] Work Phone: Start: 06-09-2024 MD Shantel painting Work Phone: [facility] Work Phone: Start: 06-05-2024 End: 06-05-2024 ambulatory MD Shantel Steven Work Phone: [facility] Work Phone: Start: 06-05-2024 End: 06-05-2024 Patient encounter procedure MD Shantel Steven Work Phone: [facility] Physician [facility] [place] Work Phone: Start: 06-05-2024 End: 06-05-2024 MD Shantel Steven Work Phone: [facility] Physician [facility] [place] Work Phone: Start: 06-01-2024 Non-patient / Non-visit MD Alessia Steven Work Phone: [facility] Work Phone: Start: 06-01-2024 MD Shantel painting Work Phone: [facility] Work Phone: Start: 05-26-2024 Non-patient / Non-visit MD Alessia Steven Work Phone: [facility] Work Phone: Start: 05-26-2024 MD Shantel painting Work Phone: [facility] Work Phone: Start: 05-22-2024 End: 05-22-2024 Emergency department patient visit MD Shantel Steven Work Phone: [facility] Work Phone: Start: 05-22-2024 End: 05-22-2024 MD Shantel Steven Work Phone: [facility] Work Phone: Start: 05-20-2024 Non-patient / Non-visit MD Alessia Steven Work Phone: [facility] Work Phone: Start: 05-20-2024 MD Shantel painting Work Phone: [facility] Work Phone: Start: 05-19-2024 End: 05-19-2024 ambulatory MD Shantel Steven Work Phone: [facility] Work Phone: Start: 05-19-2024 End: 05-19-2024 Patient encounter procedure MD Shantel Steven Work Phone: [facility] Work Phone: Start: 05-19-2024 End: 05-19-2024 MD Shantel Steven Work Phone: [facility] Work Phone: Start: 05-07-2024 End: 05-07-2024 ambulatory MD Shantel Steven Work Phone: [facility] Work Phone: Start: 05-07-2024 End: 05-07-2024 Patient encounter procedure MD Shantel Steven Work Phone: [facility] Work Phone: Start: 05-07-2024 End: 05-07-2024 MD Shantel Steven Work Phone: [facility] Work Phone: Start: 05-06-2024 Non-patient / Non-visit MD Alessia Steven Work Phone: [facility] Work Phone: Start: 05-06-2024 MD Shantel painting Work Phone: [facility] Work Phone: Start: 05-05-2024 Non-patient / Non-visit MD Alessia Steven Work Phone: [facility] Work Phone: Start: 05-05-2024 MD Shantel painting Work Phone: [facility] Work Phone: Start: 05-04-2024 End: 05-06-2024 Non-patient / Non-visit MD Shantel Steven Work Phone: [facility] Work Phone: Start: 05-04-2024 End: 05-06-2024 MD Shantel Steven Work Phone: [facility] Work Phone: Start: 05-04-2024 Non-patient / Non-visit MD Alessia Steven Work Phone: [facility] Work Phone: Start: 05-04-2024 MD Shantel painting Work Phone: [facility] Work Phone: Start: 05-02-2024 Non-patient / Non-visit MD Alessia Steven Work Phone: [facility] Work Phone: Start: 05-02-2024 MD Shantel painting Work Phone: [facility] Work Phone: Start: 05-01-2024 Non-patient / Non-visit MD Alessia Steven Work Phone: [facility] Work Phone: Start: 05-01-2024 MD Shantel painting Work Phone: [facility] Work Phone: Start: 04-30-2024 Non-patient / Non-visit MD Alessia Steven Work Phone: [facility] Work Phone: Start: 04-30-2024 MD Shantel painting Work Phone: [facility] Work Phone: Start: 04-30-2024 Non-patient / Non-visit MD Alessia Steven Work Phone: [facility] Work Phone: Start: 04-30-2024 MD Shantle painting Work Phone: [facility] Work Phone: Start: 04-29-2024 End: 04-29-2024 Patient encounter procedure MD Shantel Steven Work Phone: [facility] Work Phone: Start: 04-29-2024 End: 04-29-2024 MD Shantel Steven Work Phone: [facility] Work Phone: Start: 04-03-2024 End: 04-03-2024 ambulatory MD Shantel Steven Work Phone: [facility] Work Phone: Start: 04-03-2024 End: 04-03-2024 Patient encounter procedure MD Shantel Steven Work Phone: [facility] Work Phone: Start: 04-03-2024 End: 04-03-2024 MD Shantel Steven Work Phone: [facility] Work Phone: Start: 04-01-2024 Non-patient / Non-visit MD Alessia Steven Work Phone: [facility] Work Phone: Start: 04-01-2024 MD Shantel painting Work Phone: [facility] Work Phone: Start: 03-31-2024 Non-patient / Non-visit MD Alessia Steven Work Phone: [facility] Work Phone: Start: 03-31-2024 MD Shantel painting Work Phone: [facility] Work Phone: Start: 03-28-2024 Non-patient / Non-visit MD Alessia Steven Work Phone: [facility] Work Phone: Start: 03-28-2024 MD Shantel painting Work Phone: [facility] Work Phone: Start: 03-27-2024 Non-patient / Non-visit MD Alessia Steven Work Phone: [facility] Work Phone: Start: 03-27-2024 MD Shantel painting Work Phone: [facility] Work Phone: Start: 03-26-2024 Non-patient / Non-visit MD Alessia Steven Work Phone: [facility] Work Phone: Start: 03-26-2024 MD Shantel painting Work Phone: [facility] Work Phone: Start: 03-25-2024 End: 03-25-2024 Patient encounter procedure MD Shantel Steven Work Phone: [facility] Work Phone: Start: 03-25-2024 End: 03-25-2024 MD Shantel Steven Work Phone: [facility] Work Phone: Start: 03-13-2024 End: 03-13-2024 ambulatory MD Shantel Steven Work Phone: [facility] Work Phone: Start: 03-13-2024 End: 03-13-2024 Patient encounter procedure MD Shantel Steven Work Phone: [facility] [address] Work Phone: Start: 02-19-2024 ambulatory FRANCHESCA PERAZA Facility : [place] Start: 02-15-2024 End: 02-15-2024 ambulatory [facility] Work Phone: Start: 02-15-2024 End: 02-15-2024 Patient encounter procedure [facility] Work Phone: Start: 01-29-2024 Non-patient / Non-visit [facility] Work Phone: Start: 01-24-2024 Non-patient / Non-visit [facility] Work Phone: Start: 01-22-2024 Non-patient / Non-visit [facility] Work Phone: Start: 01-18-2024 End: 01-18-2024 Patient encounter procedure [facility] Work Phone: Start: 01-15-2024 Non-patient / Non-visit [facility] Work Phone: Start: 01-04-2024 Non-patient / Non-visit [facility] Work Phone: Start: 12-18-2023 End: 12-18-2023 ambulatory Shantel Steven Other [employer] Other Start: 12-18-2023 Telephone encounter Shantel Steven [facility] Start: 11-19-2023 End: 11-19-2023 ambulatory Shantel Steven Other [employer] Other Start: 11-19-2023 Telephone encounter Shantel Tenisha [facility] Start: 10-23-2023 End: 10-23-2023 ambulatory Jaleesa Vanessa Other [employer] Other Start: 10-23-2023 Office outpatient ne w 30 minutes Azghassan Kochs [facility] [place] Start: 10-22-2023 End: 10-22-2023 ambulatory Shantel Steven Other [employer] Other Start: 10-22-2023 Telephone encounter Shantel Tenisha [facility] Start: 10-18-2023 End: 10-18-2023 ambulatory Shantel Steven Other [employer] Other Start: 10-18-2023 Office outpatient vi sit 15 minutes Shantel Tenisha [facility] Start: 09-07-2023 End: 09-07-2023 ambulatory Shantel Tenisha Other [employer] Other Start: 09-07-2023 Telephone encounter Shantel Steven [facility] Start: 09-04-2023 End: 09-04-2023 ambulatory Shantel Tenisha Other [employer] Other Start: 09-04-2023 Office outpatient vi sit 25 minutes Shantel Tenisha [facility] Start: 08-23-2023 End: 08-23-2023 ambulatory Shantel Tenisha Other [employer] Other Start: 08-23-2023 Telephone encounter Shantel Tenisha [facility] Start: 07-23-2023 End: 07-23-2023 ambulatory Shantel Tenisha Other [employer] Other Start: 07-23-2023 Telephone encounter Shantel Steven [facility] Start: 07-17-2023 End: 07-17-2023 ambulatory Shantel Steven Other [employer] Other Start: 07-17-2023 Office outpatient vi sit 25 minutes Shantel Tenisha [facility] Start: 05-30-2023 End: 05-30-2023 ambulatory Shantel Tenisha Other [employer] Other Start: 05-30-2023 Telephone encounter Shantel Steven [facility] Start: 05-22-2023 End: 05-22-2023 ambulatory Shantel Tenisha Other [employer] Other Start: 05-22-2023 Telephone encounter Shantel Steven [facility] Start: 05-16-2023 End: 05-16-2023 ambulatory Shantel Tenisha Other [employer] Other Start: 05-16-2023 Telephone encounter Shantel Steven [facility] Start: 05-07-2023 End: 05-07-2023 ambulatory Shantel Steven Other [employer] Other Start: 05-07-2023 Telephone encounter Shantel Steven [facility] Start: 04-30-2023 End: 04-30-2023 ambulatory Shantel Steven Other [employer] Other Start: 04-30-2023 Office outpatient vi sit 25 minutes Shantel Steven [facility] Start: 04-25-2023 End: 04-25-2023 ambulatory Shantel Steven Other [employer] Other Start: 04-25-2023 Telephone encounter Shantel Steven [facility] Start: 04-12-2023 End: 04-12-2023 ambulatory Shantel Steven Other [employer] Other Start: 04-12-2023 Telephone encounter Shantel Steven [facility] Start: 03-09-2023 End: 03-09-2023 ambulatory Shantel Steven Other [employer] Other Start: 03-09-2023 Office outpatient vi sit 15 minutes Shantel Steven [facility] Start: 03-07-2023 End: 03-07-2023 ambulatory Shantel Steven Other [employer] Other Start: 03-07-2023 Telephone encounter Shantel Steven [facility] Start: 03-06-2023 End: 03-06-[address] SHANTEL STEVEN Facility: Start: 03-05-2023 End: 03-05-2023 ambulatory Shantel Steven Other [employer] Other Start: 03-05-2023 Telephone encounter Shantel Steven [facility] Start: 02-26-2023 End: 02-26-2023 ambulatory Shantel Steven Other [employer] Other Start: 02-26-2023 Telephone encounter Shantel Steven [facility] Start: 02-24-2023 End: 02-24-[address] SHANTEL STEVEN Facility:[facility] Start: 02-23-2023 End: 02-23-2023 ambulatory Shantel Steven Other [employer] Other Start: 02-23-2023 Telephone encounter Shantel Steven [facility] Start: 02-20-2023 End: 02-20-2023 ambulatory Shantel Steven Other [employer] Other Start: 02-20-2023 Transitional care [facility] 14 day discharge Shantel Steven [facility] Start: 02-16-2023 End: 02-16-2023 ambulatory Shantel Steven Other [employer] Other Start: 02-16-2023 Telephone encounter Shantel Steven [facility] Start: 02-13-2023 End: 02-14-[address] SHANTEL STEVEN Facility:[facility] Start: 02-02-2023 End: 02-02-2023 ambulatory Shantel Steven Other [employer] Other Start: 02-02-2023 Telephone encounter Shantel Steven [facility] Start: 01-16-2023 End: 01-17-[address] DOCTOR ACRMONA Facility:[facility] Start: 01-05-2023 End: 01-05-2023 ambulatory BIN ROJAS Facility:[facility] Start: 01-01-2023 End: 01-02-2023 ambulatory ANALISA BRYANT Facility:[facility] Start: 11-29-2022 End: 11-29-2022 ambulatory Shantel Steven Other [employer] Other Start: 11-29-2022 Telephone encounter Shantel Steven [facility] Start: 11-27-2022 End: 11-27-2022 ambulatory Shantel Steven Other [employer] Other Start: 11-27-2022 Telephone encounter Shantel Steven [facility] Start: 11-24-2022 End: 11-24-2022 ambulatory Shantel Steven Other [employer] Other Start: 11-24-2022 Telephone encounter Shantel Steven [facility] Start: 11-06-2022 ambulatory YAMEL PANDYA Facility :[facility] Start: 09-15-2022 End: 09-16-[address] SHANTEL STEVEN Facility:[facility] Start: 08-04-2022 End: 08-04-2022 Patient encounter procedure Bin R [facility] [place] Start: 05-02-2022 End: 05-02-[address] SHANTEL STEVEN Facility: Start: 08-25-2021 Office outpatient ne w 45 minutes Akbar Cui II [facility] Start: 08-09-2017 End: 08-12-2017 Ambulatory PROVIDER UNKNOWN Facility:[facility] Procedures Date Procedure Procedure Detail Performing [...] Treatment Date Care Activity Detail Author Start: 08-20-2025 [facility] Start: 08-20-2025 Urine culture [facility] Start: 08-05-2025 Patient referral [facility] Work Phone: Start: 08-01-2025 End: 08-01-2025 [facility] Start: 07-30-2025 [facility] Start: 07-29-2025 Physical therapy procedure [facility] Start: 07-29-2025 Referral to occupati onal therapist [facility] Start: 07-29-2025 [facility] Start: 07-29-2025 Hospital admission [facility] Start: 06-08-2025 [facility] Start: 06-02-2025 [facility] Start: 06-02-2025 Urine culture [facility] Start: 03-24-2025 Patient referral [facility] Work Phone: Start: 12-10-2024 Patient referral [facility] Work Phone: Start: 10-20-2024 [facility] Start: 10-16-2024 Consultation [facility] Start: 10-16-2024 Hospital admission [facility] Start: 10-16-2024 Referral to lean manufacturing engineer [facility] Start: 10-16-2024 Drainage of Bladder with Drainage Device, Via Natural or Artificial Opening Drainage of Bladder with Drainage Device, Via Natural or Artificial Opening [facility] Start: 10-16-2024 Performance of Cardi ac Pacing, Continuous Performance of Cardiac Pacing, Continuous [facility] Start: 10-01-2024 End: 10-01-2024 Patient encounter procedure [facility] Comment on above: Arrived Start: 09-30-2024 End: 09-30-2024 Patient encounter procedure 09/30/2024 1:00 PM EST Office Visit [facility] [address] [place] [id number] Wanda Patel DO [address] [place] [address] [facility] [place] [address] Start: 09-04-2024 End: 09-04-2024 Patient encounter procedure 09/04/2024 1:20 PM EDT Office Visit [facility] [place] [address] [place] [id number] Lizett Jacinto NP [address] [place], [place] [facility] [place] [facility] Start: 07-22-2024 End: 07-22-2024 Patient encounter procedure 07/22/2024 1:10 PM EDT Office Visit [facility] [address] [place] [id number] Christel Chacon MD [address] [place] [address] Arrived [facility] Comment on above: Arrived Start: 07-17-2024 Bacteria identified in Urine by Culture [facility] Start: 07-17-2024 [facility] Start: 07-15-2024 End: 07-15-2024 Patient encounter procedure 07/15/2024 1:10 PM EDT Office Visit [facility] [address] [place] [address] Christel Chacon MD [address] [place] [address] [facility] Start: 2024 Influenza vaccination Influenza Vacc ine (#1) [facility] Start: 07-10-2024 End: 07-10-2024 Patient encounter procedure 07/10/2024 1:40 PM EDT Office Visit [facility] [place] [address] [place] [address] Lizett Jacinto NP [address] [place], [place] Arrived [facility] [place] [address] [facility] Comment on above: Arrived Start: 06-25-2024 Patient referral [facility] Work Phone: Start: 06-16-2024 Patient referral [facility] Work Phone: Start: 05-07-2024 [facility] [facility] Work Phone: Start: 05-04-2024 Blood Culture 1 Blood Culture 1 [facility] Start: 02-15-2024 Patient referral [facility] Work Phone: Basophils [#/volume] in Blood by Automated count [facility] Basophils/100 leukoc ytes in Blood by Automated count [facility] Comprehensive metabo lic 1999 panel - Serum or Plasma [facility] Comprehensive metabo lic 1999 panel - Serum or Plasma [facility] CT Abdomen and Pelvi s WO contrast [facility] Eosinophils/100 leukocytes in Blood by Automated count [facility] Erythrocyte distribu tion width [Ratio] by Automated count [facility] Erythrocytes [#/volu me] in Blood [facility] Hematocrit [Volume Fraction] of Blood [facility] Hemoglobin [Mass/vol ume] in Blood [facility] Leukocytes [#/volume ] corrected for nucleated erythrocytes in Blood by Automated coun [facility] Leukocytes [#/volume ] in Blood [facility] Lymphocytes [#/volum e] in Blood by Automated count [facility] Lymphocytes/100 leukocytes in Blood by Automated count [facility] MCH [Entitic mass] b y Automated count [facility] MCHC [Mass/volume] b y Automated count [facility] MCV [Entitic volume] by Automated count [facility] Microalbumin [Mass/volume] in Urine [facility] Monocytes [#/volume] in Blood by Automated count [facility] Monocytes/100 leukoc ytes in Blood by Automated count [facility] Neutrophils [#/volum e] in Blood by Automated count [facility] Neutrophils/100 leukocytes in Blood by Automated count [facility] Nucleated erythrocyt es [Presence] in Blood by Automated count [facility] Patient Education [facility] Work Phone: Patient referral [facility] Work Phone: Platelet mean volume [Entitic volume] in Blood by Automated count [facility] Platelets [#/volume] in Blood [facility] Renal function 1999 panel - Serum or Plasma [facility] Renal function 1999 panel - Serum or Plasma [facility] Renal function 1999 panel - Serum or [facility] Immunizations Immunization Date Immunization Notes Care Provider Fa cility 01-18-2024 Pneumococcal Conjugate Vaccine, 20 valent [facility] 09-04-2023 influenza, high dose seasonal, preservative-free Shantel Steven Other [employer] [facility] [employer] Other 09-04-2023 influenza virus vaccine, unspecified formulation [facility] 02-04-2021 COVID-19 mRNA, Comirnaty (Pfizer) [facility] 01-21-2021 COVID-19 mRNA, Comirnaty (Pfizer) [facility] 10-09-2018 influenza virus vaccine, split virus (incl. purified surface antigen) Shantel Steven Other [employer] Other 10-09-2018 influenza virus vaccine, unspecified formulation [facility] NEGATED: Highlighted row has not occurred!10-17-2024 influenza, high dose seasonal, preservative-free Jorge Luis Zavala DO Work Phone: [facility] NEGATED: Highlighted row has not occurred!08-21-2019 influenza virus vaccine, split virus (incl. purified surface antigen) Shantel Steven Other [employer] Other Payers Date Payer Category Payer Medicare [id number] 2024 Self-pay [id number] 2023 Medicare HUMANA MEDICARE ADVANTAGE HUMANA MEDICARE [id number] 2023-Present [address] [address] [place] [address] [id number] 2023 Medicare (Managed Care) [facility] ADV[facility] [id number] 1959 Medicare [id number] 1959 Self-pay [id number] 1945 Unknown [id number] 2.16.840.1.186616.3.579. 2.593 1945 Unknown [id number] 2.16.840.1.255045.3.579. 2.593 1945 Unknown [id number] 2.16.840.1.285474.3.579. 2.59 1945 Unknown [id number] 2.16.840.1.683182.3.579. 2.593 1946 Unknown [id number] 2.16.840.1.622825.3.579. 2.593 1946 Unknown [id number] 2.16.840.1.418559.3.579. 2.593 1946 Unknown [id number] 2.16.840.1.441254.3.579. 2.593 1946 Unknown [id number] 2.16.840.1.850387.3.579. 2.593 1946 Unknown [id number] 2.16.840.1.586487.3.579. 2.593 1946 Unknown [id number] 2.16.840.1.287083.3.579. 2.1259 1946 Unknown [id number] 2.16.840.1.606372.3.579. 2.1259 1946 Unknown [id number] 2.16.840.1.592145.3.579. 2.1259 1946 Unknown [id number] 2.16.840.1.112359.3.579. 2.727 1946 Unknown [id number] 2.16.840.1.535455.3.579. 2.727 1946 Unknown [id number] 2.16.840.1.234131.3.579. 2.727 1945 Unknown [id number] 2.16.840.1.787590.3.579. 2.727 1945 Unknown [id number] 2.16.840.1.765482.3.579. 2.727 Unknown Unknown [id number] 2.16.840.1.425904.3.579. 2.531 Unknown [id number] 2.16.840.1.622580.3.579. 2.531 Unknown [id number] 2.16.840.1.922289.3.579. 2.531 Unknown [id number] 2.16.840.1.872285.3.579. 2.531 Unknown [id number] 2.16.840.1.251323.3.579. 2.531 Unknown [id number] 2.16.840.1.213092.3.579. 2.531 Unknown [id number] 2.16.840.1.854991.3.579. 2.531 Unknown [id number] 2.16.840.1.220444.3.579. 2.531 Social History Date Type Detail Facility Start: 07-22-2024 End: 10-01-2024 Sex Assigned At [facility] [employer] Other Start: 08-04-2022 End: 07-29-2025 Tobacco smoking status Ex-smoker (finding) [facility] Tobacco smoking status Never [facility] Start: 1945 Sex Assigned At Female F [facility] History of tobacco use Current smoker [facility] History of tobacco use Cigarette Smoker N [facility] Start: 07-03-2024 Tobacco use and exposure Smokeless tobacco non-user [facility] Start: 07-22-2024 End: 10-01-2024 Alcoholic beverage intake Lifetime non-drinker (finding) [facility] Start: 07-22-2024 End: 10-01-2024 History of Social function [facility] Start: 07-08-2024 Alcohol Comment caffeine: 1-2 cups per day [facility] Start: 1945 Sex assigned at Not on file N [facility] Start: 12-26-2024 End: 04-21-2025 Sex Female (finding) [facility] Start: 03-12-2025 End: 06-10-2025 Tobacco smoking status NHIS Never smoked tobacco (finding) [facility] Start: 07-30-2025 [facility] Work Phone: Medical Equipment Procedure Code Equipment Code Equipment Origin al Text Equipment Identifier Dates Blood Sugar Diagnostic (True Metrix Glucose Test Strip) strip Start: 03-31-2024 Pen Needle, Diab etic (Comfort Ez Pen Orovada) 33 gauge x 5/32 needle Start: 03-25-2024 Blood Sugar Diagnostic (True Metrix Glucose Test Strip) strip Start: 03-31-2024 End: 03-31-2024 Blood Sugar Diagnostic (True Metrix Glucose Test Strip) strip Start: 03-31-2024 Pen Needle, Diab etic (Comfort Ez Pen Orovada) 33 gauge x 5/32 needle Start: 03-25-2024 Blood Sugar Diagnostic (True Metrix Glucose Test Strip) strip Start: 03-31-2024 End: 03-31-2024 Blood Sugar Diagnostic (True Metrix Glucose Test Strip) strip Start: 03-31-2024 Pen Needle, Diab etic (Comfort Ez Pen Orovada) 33 gauge x 5/32 needle Start: 03-25-2024 Blood Sugar Diagnostic (True Metrix Glucose Test Strip) strip Start: 03-31-2024 End: 03-31-2024 Blood Sugar Diagnostic (True Metrix Glucose Test Strip) strip Start: 03-31-2024 Pen Needle, Diab etic (Comfort Ez Pen Orovada) 33 gauge x 5/32 needle Start: 03-25-2024 Blood Sugar Diagnostic (True Metrix Glucose Test Strip) strip Start: 03-31-2024 End: 03-31-2024 Blood Sugar Diagnostic (True Metrix Glucose Test Strip) strip Start: 03-31-2024 Pen Needle, Diab etic (Comfort Ez Pen Orovada) 33 gauge x 5/32 needle Start: 03-25-2024 Blood Sugar Diagnostic (True Metrix Glucose Test Strip) strip Start: 03-31-2024 End: 03-31-2024 Blood Sugar Diagnostic (True Metrix Glucose Test Strip) strip Start: 03-31-2024 Pen Needle, Diab etic (Comfort Ez Pen Orovada) 33 gauge x 5/32 needle Start: 03-25-2024 Blood Sugar Diagnostic (True Metrix Glucose Test Strip) strip Start: 03-31-2024 End: 03-31-2024 Blood Sugar Diagnostic (True Metrix Glucose Test Strip) strip Start: 03-31-2024 Pen Needle, Diab etic (Comfort Ez Pen Orovada) 33 gauge x 5/32 needle Start: 03-25-2024 Blood Sugar Diagnostic (True Metrix Glucose Test Strip) strip Start: 03-31-2024 End: 03-31-2024 Blood Sugar Diagnostic (True Metrix Glucose Test Strip) strip Start: 03-31-2024 Pen Needle, Diab etic (Comfort Ez Pen Orovada) 33 gauge x 5/32 needle Start: 03-25-2024 Blood Sugar Diagnostic (True Metrix Glucose Test Strip) strip Start: 03-31-2024 End: 03-31-2024 Blood Sugar Diagnostic (True Metrix Glucose Test Strip) strip Start: 03-31-2024 Pen Needle, Diab etic (Comfort Ez Pen Orovada) 33 gauge x 5/32 needle Start: 03-25-2024 Blood Sugar Diagnostic (True Metrix Glucose Test Strip) strip Start: 03-31-2024 End: 03-31-2024 Pen Needle, Diab etic (Comfort Ez Pen Orovada) 33 gauge x 5/32 needle Start: 03-25-2024 Blood Sugar Diagnostic (True Metrix Glucose Test Strip) strip Start: 03-31-2024 End: 10-16-2024 Blood Sugar Diagnostic (True Metrix Glucose Test Strip) strip Start: 03-31-2024 End: 03-31-2024 Pen Needle, Diab etic (Comfort Ez Pen Orovada) 33 gauge x 5/32 needle Start: 03-25-2024 Blood Sugar Diagnostic (True Metrix Glucose Test Strip) strip Start: 03-31-2024 End: 10-16-2024 Blood Sugar Diagnostic (True Metrix Glucose Test Strip) strip Start: 03-31-2024 End: 03-31-2024 Pen Needle, Diab etic (Comfort Ez Pen Orovada) 33 gauge x 5/32 needle Start: 03-25-2024 Blood Sugar Diagnostic (True Metrix Glucose Test Strip) strip Start: 03-31-2024 End: 10-16-2024 Blood Sugar Diagnostic (True Metrix Glucose Test Strip) strip Start: 03-31-2024 End: 03-31-2024 Pen Needle, Diab etic (Comfort Ez Pen Orovada) 33 gauge x 5/32 needle Start: 03-25-2024 Blood Sugar Diagnostic (True Metrix Glucose Test Strip) strip Start: 03-31-2024 End: 10-16-2024 Blood Sugar Diagnostic (True Metrix Glucose Test Strip) strip Start: 03-31-2024 End: 03-31-2024 Pen Needle, Diab etic (Comfort Ez Pen Orovada) 33 gauge x 5/32 needle Start: 03-25-2024 Blood Sugar Diagnostic (True Metrix Glucose Test Strip) strip Start: 03-31-2024 End: 10-16-2024 Blood Sugar Diagnostic (True Metrix Glucose Test Strip) strip Start: 03-31-2024 End: 03-31-2024 Pen Needle, Diab etic (Comfort Ez Pen Orovada) 33 gauge x 5/32 needle Start: 03-25-2024 Blood Sugar Diagnostic (True Metrix Glucose Test Strip) strip Start: 03-31-2024 End: 10-16-2024 Blood Sugar Diagnostic (True Metrix Glucose Test Strip) strip Start: 03-31-2024 End: 03-31-2024 Pen Needle, Diab etic (Comfort Ez Pen Orovada) 33 gauge x 5/32 needle Start: 03-25-2024 Blood Sugar Diagnostic (True Metrix Glucose Test Strip) strip Start: 03-31-2024 End: 10-16-2024 Blood Sugar Diagnostic (True Metrix Glucose Test Strip) strip Start: 03-31-2024 End: 03-31-2024 Pen Needle, Diab etic (Comfort Ez Pen Orovada) 33 gauge x 5/32 needle Start: 03-25-2024 Blood Sugar Diagnostic (True Metrix Glucose Test Strip) strip Start: 03-31-2024 End: 10-16-2024 Blood Sugar Diagnostic (True Metrix Glucose Test Strip) strip Start: 03-31-2024 End: 03-31-2024 Goals Date Patient Goal Desired Activity /State Functional Status Date Assessment Result Facility 08-01-2025 Functional status Patient at Baseline [facility] Work Phone: 07-29-2025 Functional status Patient Not at Baseline [facility] Work Phone: 11-04-2024 Functional Status N/A [facility] 10-20-2024 Functional status Patient at Baseline [facility] Work Phone: 08-04-2022 Functional Status N/A [facility] Mental Status Date Assessment Result Facility 08-01-2025 Cognitive function Patient at Baseline [facility] Work Phone: 07-29-2025 Cognitive function Patient at Baseline [facility] Work Phone: 10-20-2024 Cognitive function Cognitive Sta tus Patient at Baseline [facility] Work Phone: Clinical Notes 08-25-2021 to 07-31-2025 Note Date & Type Note Facility 07-31-2025 Progress note Note Date/Time July 31, 2025 12:14pm [facility] [address] [place] [address] Hospitalist Progress Note Signed Patient: Joe Call MR#: [id number] : 1945 Acct:[id number] Age/Sex: 80 / F Adm Date: 5 Loc: 3T Room: [address] [place] [address] Type: ADM IN Attending Dr: Chasity Castro [...] Laboratory work up and Imaging studies reviewed surveillance system monitor - reviewed, normal sinus rhythm noted, [...] Dose Route Start Last Admin Trade Name Freq PRN Reason Stop Dose Admin Acetaminophen 650 [...] cannula continuously Documented By: Chasity Castro MD 07/31/25 1210 Signed By: <Electronically signed by Chasity Castro MD> 07/31/25 1214 [facility] Work Phone: 1(305) 152-484909-18-2025 Progress note Author Chasity Castro [facility] Note Date/Time July 30, 2025 1:28pm [facility] [address] [place] [address] Hospitalist Progress Note Signed with Addenda Patient: Joe Call MR#: [id number] : 1945 Acct:[id number] Age/Sex: 80 / F Adm Date: 5 Loc: Room: [address] [place] [address] Type: ADM IN Attending Dr: Chasity Castro MD Copies to: ~ ADDENDUM1 Severe pulmonary hypertension Addendum Documented By: Chasity Castro MD 07/30/25 1328 Addendum Signed By: <Electronically signed by Chasity Castro MD> 07/30/25 1328 Date of Service: 07/30/2025 Subjective Subjective Narrative: [...] Laboratory work up and Imaging studies reviewed surveillance system monitor - reviewed, normal sinus rhythm noted, [...] Dose Route Start Last Admin Trade Name Freq PRN Reason Stop Dose Admin Acetaminophen 650 [...] 07/30/25 09:00 07/30/25 08:20 Duloxetine 20 Mg Capsule. PO 07/30/26 08:59 [...] 07/30/25 09:00 07/30/25 08:20 Pantoprazole 40 Mg Tablet. PO 07/30/26 08:59 [...] signed by Chasity Castro MD> 07/30/25 1059 [facility] Work Phone: 1(363) 900-305609-18-2025 History and physical note Author Chasity Castro [facility] Note Date/Time July 30, 2025 10:49am [facility] [address] [place] [address] Hospitalist H&P Signed Patient: Joe Call MR#: [id number] : 1945 Acct:[id number] Age/Sex: 80 / F Adm Date: 5 Loc: Room: [address] [place] [address] Type: ADM IN Attending Dr: Chasity Castro [...] few weeks and sought care at [facility] for diuresis but left AMA [...] bicarb 28.8, BUN of 51, creat 1.84 , calcium 8.1, troponin is 13, BNP is [...] note that she has been scheduled at [facility] to receive a Watchman devicefor her a-fib [...] HTN vs Afib vs CKD. TTE from [facility] 03/26/24 with 55-60% EF, severe elevated right-sided [...] chest pain. Scheduled for Watchman placement at [facility] -Continue home Xarelto 20mg QD -Hold BB for bradycardia -Check TSH, Mg 5. Hypertension with long standing JED; unable to tolerate CPAP use. Previously left [facility] AMA prior to full workup for secondary causes to include pheochromocytoma and Aldosterone/Renin ratio for possible hyperaldosteronism. A Renal artery US was completed and ruled out renal artery stenosis at [facility]. -Hydralazine PRN for SBP >185 6. DM2 with recently decreased appetite and low blood sugars. Typically takes 8 units at home recently per and still borderline low BG levels. 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 Hypothyroidism Hypertension GERD [...] Family/Other Family history of other condition Legacy FamHx Problem: Family history of DM:No Family History [...] Verified 07/29/25 10:04) diarrhea Home Medications vitamins A,C,H-qadd-psqqsu 4,296 mcg-226 mg-90 mg capsule (PreserVision AREDS) 1cap PO BID 01/17/24 [History Confirmed 07/29/25] pen needle, diabetic 33 gauge x 5/32 (Comfort EZ Pen Orovada) #100 ea 03/25/24 [Rx Confirmed 07/20/25] flash glucose scanning reader ([facility] Una) #1 ea 09/10/24 [Rx Confirmed 07/29/25] alprazolam [...] 07/20/25 [Rx Confirmed 07/29/25] flash glucose sensor ([facility] Sensor kit) #1 kit 07/20/25 [Rx Confirmed 07/29/25] furosemide 40 mg tablet (Lasix) 40 mg PO BID #180 tabs 07/20/25 [Rx Confirmed 07/29/25] jpzqviar-nwndbvnvdg-mcqo-HC 3.5 mg-400-10,000 unit/g-1 % eye ointment 1 [...] % (Auto) 13.6 % (.) 07/29/25 11:04 [facility] % (Auto) 7.4 % (.) 07/29/25 11:04 Eos % (Auto) 1.7 % (.) 07/29/25 11:04 Baso % (Auto) 1.3 % (.) 07/29/25 11:04 Nucleat RBC Rel Count 0.1 /100 WBC (0-0.5) 07/29/25 11:04 Neut # (Auto) 4.5 x10E3/uL (1.8-7.7) 07/29/25 11:04 Lymph # (Auto) 0.8 x10E3/uL (1.00-4.8) L 07/29/25 11:04 [facility] # (Auto) 0.4 x10E3/uL (0.0-0.8) 07/29/25 11:04 [...] has been seen and examined together with rn medical inpatient services Dr. Alex Betts. I personally obtained the [...] <Electronically signed by DO DE Betts> 07/29/25 172 [facility] Work Phone: 1(987) 588-308109-03-2025 NoteWe called and spoke to spouse regarding [...] she is ready to proceed. Yamel Pandya, [employer]IMEE[employer]OR EQUIPMENT COMMANDING OFFICER [facility] Evaluation note* Diagnosis Onset Date Resolution Status [...] wit h diabetic chronic kidney disease acute Dina 8th, 2 025 1:56pm Type 2 diabetes mellitus wit h hyperglycemia, with long-term current use of acute July 20 2 025 1:56pm Vitreous hemorrhage of right eye acute July 20 025 1:56pm Acute exacerbation of CHF (congestive heart failure) resolved mb2024 12:56pm CKD (chronic kidney disease) stage 3, GFR 30-59 ml/min resolved 2024 12:56pm Diarrhea resolved July 12:56pm IBS (irritable bowel syndrome) resol ramesh July 29, 2025 12:56pm Longstanding persistent atri al fibrillation resolved July 29, 2025 12:56pm Oxygen dependent acute Julembe r 2024 9:32am Tremor acute July 9:32am Vitreous hemorrhage of right eye acute August 05, 2025 9:32am Acute exacerbation of CHF (congestive heart failure) resolved 2024 9:32am CKD (chronic kidney disease) stage 3, GFR 30-59 ml/min resolved 2024 9:32am IBS (irritable bowel syndrome) resol ramesh August 05, 2025 9:32am Longstanding persistent atri al fibrillation resolved August 05, 2025 9:32am Balance disorder acute August 17, 2025 1:16pm Debility acute August 17, 025 1:16pm Diabetic polyneuropathy acute O ctober 2024 1:16pm Hallucination acute August 1:16pm Memory changes acute August 1:16pm Tremor acute August 17, 2 025 1:16pm Weakness acute August 17 025 1:16pm [facility] Work Phone: 1([phone]) 805-535607-10-2025 Evaluation note* Diagnosis Onset Date Resolution Status [...] 20 1:56pm Vitreous hemorrhage of right eye July 20 1:56pm Acute exacerbation of CHF (congestive heart failure) acute 2024 12:56pm CKD (chronic kidney disease) stage 3, GFR 30-59 ml/min acute 2024 12:56pm Diarrhea acute July 12:56pm IBS (irritable bowel syndrome) acute July 29, 2025 12:56pm Longstanding persistent atri al fibrillation acute July 29, 2025 12:56pm [facility] Work Phone: 1(239) 218-322807-10-2025 Evaluation note* Diagnosis Onset Date Resolution Status [...] wit h diabetic chronic kidney disease July 20 1:56pm Type 2 diabetes mellitus wit h hyperglycemia, with long-term current use of acute July 20 1:56pm Vitreous hemorrhage of right eye acute July 20 025 1:56pm Acute exacerbation of CHF (congestive heart failure) resolved 2024 12:56pm CKD (chronic kidney disease) stage 3, GFR 30-59 ml/min resolved Sept2024 12:56pm Diarrhea resolved July 12:56pm IBS (irritable bowel syndrome) resolved July 29, 2025 12:56pm Longstanding persistent atrial fibrillation resolved July 292024 12:56pm Oxygen dependent acute Septembe r 2024 9:32am Tremor acute July 9:32am Vitreous hemorrhage of right eye acute August 05, 2025 9:32am Acute exacerbation of CHF (congestive heart failure) resolved Septe mber 2024 9:32am CKD (chronic kidney disease) stage 3, GFR 30-59 ml/min resolved Julem 2024 9:32am IBS (irritable bowel syndrome) resolved August 05, 2025 9:32am Longstanding persistent atrial fibrillation resolved August 052024 9:32am [facility] Work Phone: 1([phone]) 553-697006-11-2025 NoteUT Cardiology - [facility] Subjective Joe Call is a 79 [...] Hordeolum externum (stye) Immunization due Lactose intolerance half-way (current) use of insulin (CMS/HCC) Lumbar degenerative disc disease Lumbar spondylosis Lymph edema Macular degeneration Memory changes Osteoarthritis Secondary hyperparathyroidism Stress incontinence of urine Thrush of mouth and esophagus (CMS/HCC) Urinary incontinence UTI (urinary tract infection) Yeast cystitis CARMELO (acute kidney injury) Tremor Acquired hammer toe of right foot Ataxia Balance disorder CHF (congestive heart failure) ([facility]/HCC) Dehydration Diabetic foot ([facility]/HCC) Diabetic peripheral neuropathy associated with type 2 diabetes mellitus ([facility]) Disability of walking Essential tremor LPRD (laryngopharyngeal reflux disease) Mass of right axilla Paresthesia Throat tightness Type 2 diabetes mellitus with hyperglycemia, with long-term current use of insulin ([facility]) Venous insufficiency (chronic) (peripheral) Debility Arthrodesis status BMI 40.0-44.9, adult ([facility]) Epigastric pain Urine retention Family [...] prior cardiac catheterizations. She has history of TN in the past and underwent balloon angioplasty (many years ago, prior to the stent era). 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 In December 2022 she was admitted to the [facility] with decompensated diastolic heart failure, she was treated with diuretic therapy. In February 2023 she was admitted to [facility] with dehydration secondary to acute gastroenteritis. She also had acute kidney injury in that setting. She has history of breast cancer more than 25 years ago s/p mastectomy, chemo and radiation therapy. She has lymphedema in the left arm. In the past she saw a foundry worker for bleeding behind the eye . [...] April 2024 she was admitted to the [facility] with increasing weakness and altered mental status. She also had acute renal insufficiency. She had UTI secondary to E. coli. She previously was admitted to the [facility] several times due to heart failure. She was readmitted in January 2025 to the [facility] with shortness of breath and [...] Respiratory: Positive for shortness (more content not included)...[facility]06-10-2025 Evaluation note* Diagnosis Onset Date Resolution [...] failure) acute July 20, 2 025 1:56pm [facility] Work Phone: 1(812) 813-897305-13-2025 Evaluation note* Diagnosis Onset Date Resolution Status [...] use of acute June 04, 2025 9:49am [facility] Work Phone: 1(276) 988-286505-13-2025 Hospital Discharge instructionsAmbulatory Orders* Referral to Diabetes Management Time Frame: 03/24/25, Location: None Selected [facility] Work Phone: 1(420) 285-704004-29-2025 Evaluation note* Diagnosis Onset Date Resolution Status [...] bowel syndrome) acute April 21, 2025 2:10pm [facility] Work Phone: 1(553) 787-643504-29-2025 Evaluation note* Diagnosis Onset Date Resolution Status [...] x disease) acute May 21, 2025 10:52am [facility] Work Phone: 1(684) 950-873804-29-2025 Evaluation note* Diagnosis Onset Date Resolution Status [...] 2025 10:52am Dysuria acute June 02 12:10pm [facility] Work Phone: 1(688) 277-771004-21-2025 NoteCardiovascular Medicine [facility] SUBJECTIVE Patient is here today for follow-up after [facility] admission HPI 03/02/2025 Patient is [...] intake. 01/28/2025 She presented yesterday to the [facility] room with worsening shortness of breath [...] better. She is going to see a lean manufacturing engineer next week. Also she reports symptoms of [...] postchemotherapy and radiation She was recently in [facility] 10/16/2024, she presented with fatigue, lightheadedness [...] her lisinopril due to (more content not included)...[facility]03-31-2025 Evaluation note* Diagnosis Onset Date Resolution [...] tract infection) acute March 24, 2025 1:51pm [facility] Work Phone: 1([phone]) 276-684803-31-2025 Evaluation note* Diagnosis Onset Date Resolution Status [...] bowel syndrome) acute April 21, 2025 2:10pm [facility] Work Phone: 1(814) 626-506703-19-2025 NoteCardiovascular Medicine [facility] SUBJECTIVE Patient is here today for follow-up after [facility] admission HPI 01/28/2025 She presented yesterday to the [facility] room with worsening shortness of breath [...] better. She is going to see a lean manufacturing engineer next week. Also she reports symptoms of [...] postchemotherapy and radiation She was recently in [facility] 10/16/2024, she presented with fatigue, lightheadedness [...] confusion regarding her d (more content not included)...[facility]02-26-2025 Telephone encounter Note* Telephone Encounter - Christel Chacon MD - 01/07/2025 12:08 PM EST prn [facility] [id number] Miscellaneous Notes* Telephone Encounter - Christel Chacon MD - 01/07/2025 12:08 PM EST prn * Telephone Encounter - Jeanne Chacon - 01/07/2025 11:26 AM EST Called pt/spoke with spouse/he said she does not want to schedule with Dr Hurd/if she changes hermind she will call us back. documented in this encounterNOSaint Louis University [id number] Telephone encounter Note* Telephone Encounter - Jeanne Chacon - 01/07/2025 11:26 AM EST Called pt/spoke with spouse/he said she does not want to schedule with Dr Hurd/if she changes hermind she will call us back. [facility] [id number] Evaluation note* Diagnosis Onset Date Resolution Status [...] of acute March 24, 2025 1 :51pm [facility] Work Phone: [phone] 242-451802-25-2025 Telephone encounter Note* Telephone Encounter - Jeanne Chacon - 01/06/2025 11:21 AM EST Left a message for pt to call Dr Chacon's office back to see if pt is planning on scheduling with Dr Hurd for sleep study. [id number] Miscellaneous Notes* Telephone Encounter - Jeanne Chacon - 01/06/2025 11:21 AM EST Left a message for pt to call Dr Chacon's office back to see if pt is planning on scheduling with Dr Hurd for sleep study. documented in this encounterDoctors [facility] of [id number] Evaluation note* Diagnosis Onset Date Resolution Status [...] C HF (congestive heart failure) acute Febru hcele2024 3:21pm CKD (chronic kidney disease) , stage [...] x disease) acute March 10, 2025 11:03am [facility] Work Phone: 1([phone]) 712-281502-14-2025 Evaluation note* Diagnosis Onset Date Resolution Status [...] bowel syndrome) acute March 10, 2025 11:03am [facility] Work Phone: [phone] Evaluation note* Diagnosis Onset Date Resolution Status [...] kidney disease acute February 19, 2025 8:32am [facility] Work Phone: 1(644) 332-904301-21-2025 NoteCardiovascular Medicine [facility] SUBJECTIVE Patient is here today [...] postchemotherapy and radiation She was recently in [facility] 10/16/2024, she presented with fatigue, lightheadedness [...] few months. Patient here for follow up [facility]. Her diuretic was switched again back [...] Oz of fluid a day per the lean manufacturing engineer. Her most recent discharge on 07/25/24 she [...] has noticed occasional horsen (more content not included)...[facility]12-31-2024 Evaluation note* Diagnosis Onset Date Resolution [...] 2025 10:00am Diarrhea acute February 09 1:58pm [facility] Work Phone: 1([phone] 608-741612-24-2024 Hospital Discharge instructions Patient Education 11/04/2024 11:01:25 [...] Follow these instructions at home: Medicines Take rygv-rfl-rprdkcg and prescription medicines only as told by [...] provider. Document Revised: 07/20/2021 Document Reviewed: 07/20/2021 [employer] Patient Education 2023 [employer]. Follow Up Care 10/20/2024 13:37:01 With:FRANCHESCA PERAZA, URL Address: [address] [facility] [place] [address] Business (1) When:6 weeks [facility] 12-24-2024 NotePatient Education Obstetrics and Gynecology Acute [...] these instructions at home: Medicines ??? Take vcir-dev-zofklph and prescription medicines only as told by [...] provider. Document Revised: 07/20/2021 Document Reviewed: 07/20/2021 [employer] Patient Education ? 2023 [employer].[facility] 11-03-2024 Evaluation note* Diagnosis Onset Date Resolution [...] of acute January 06, 2 025 3:21pm [facility] Work Phone: 1(713) 762-947012-23-2024 Evaluation note* Diagnosis Onset Date Resolution Status [...] use of acute January 14, 2025 10:00am [facility] Work Phone: 1(903) 942-990312-20-2024 NoteCardiovascular Medicine [facility] SUBJECTIVE Patient is here today for hospital follow-up. She was in [facility] with bradycardia. HPI 10/31/2024 Joe Call is a 79 y.o. female here for follow-up. Patient has history of HFpEF, paroxysmal atrial fibrillation, hypertension, diabetes mellitus type 2, chronic kidney disease, remote history of breast cancer status postchemotherapy and radiation She was recently in [facility] 10/16/2024, she presented with fatigue, lightheadedness [...] few months. Patient here for follow up [facility]. Her diuretic was switched again back [...] Oz of fluid a day per the lean manufacturing engineer. Her most recent discharge on 07/25/24 she [...] pain Depressive disorder Diabe (more content not included)...[facility] 10-16-2024 Evaluation note* Diagnosis Onset Date [...] 03, 2 024 11:24am Lumbar spondylosis acute [facility] 2023 11:24am Type 2 diabetes mellitus wit h diabetic chronic kidney disease acute November 03, 2024 11:24am CKD (chronic kidney disease) stage 3, GFR 30-59 ml/min acute [facility] er 2023 1:26pm Hyperlipidemia acute [...] disease acu te December 09, 2024 1:24pm [facility] Work Phone: [phone] 100-563511-27-2024 NoteCardiovascular Medicine [facility] SUBJECTIVE Chief Complaint Patient presents with Congestive Heart Failure Hypertension Atrial Fibrillation Joe aCll is a 79 y.o. female here for follow-up. HPI PMHx: HFpEF, PAF, DMII, CKD III, HTN, hypothyroidism, mild carotid stenosis, breast CA s/p chemo/radiation +25years ago There is some confusion regarding her diuretic as there has been a lot of changes between lasix and bumex in the past few months. Patient here for follow up [facility]. Her diuretic was switched again back [...] Oz of fluid a day per the lean manufacturing engineer. Her most recent discharge on 07/25/24 she [...] Hypomagnesemia Hypothyroidism Stage 3 chronic kidney disease ([facility]/HCC) Hyperlipidemia Atrial fibrillation ([facility]/HCC) Paroxysmal atrial fibrillation ([facility]/HCC) Abdominal swelling, generalized Acute on chronic diastolic CHF (congestive heart failure) ([facility]) Anxiety Back pain with history of spinal surgery Cervical disc disease Chalazion of right eye Dyspnea Hordeolum externum (stye) Immunization due Lactose intolerance half-way (current) use of insulin ([facility]/HCC) Lumbar degenerative disc disease Lumbar spondylosis Lymph edema Macular degeneration Memory changes Osteoarthritis Secondary hyperparathyroidism ([facility]/HCC) Stress incontinence of urine Thrush of mouth and esophagus ([facility]/HCC) Urinary incontinence UTI (urinary tract infection) Yeast cystitis CARMELO (acute kidney injury) ([facility]) Tremor Acquired hammer toe of right foot Ataxia Balance disorder CHF (congestive heart failure) ([facility]) Dehydration Diabetic foot ([facility]) Diabetic peripheral neuropathy associated with type 2 diabetes mellitus ([facility]) Disability of walking Essential tremor LPRD (laryngopharyngeal reflux disease) Mass of right axilla Paresthesia Throat tightness Type 2 diabetes mellitus with hyperglycemia, with long-term current use of insulin ([facility]) Venous insufficiency (chronic) (peripheral) Debility Past Medical History: Diagnosis Date Atrial fibrillation ([facility]/HCC) Cancer ([facility]) Carotid artery stenosis Coronary (more content not included)...[facility] 10-08-2024 NotePatient here for 1 mo [...] tremors. All other systems reviewed and are negative.[facility] 10-01-2024 History of Present illness Narrative* [...] on chronic diastolic CHF (congestive heart failure) ([facility]) 05/20/2024 CARMELO (acute kidney injury) ([facility]) 05/20/2024 Anxiety 05/20/2024 Aortic valve disorder 08/20/2012 Back pain with history of spinal surgery 05/20/2024 Benign essential hypertension ([facility]) 04/02/2012 Carotid artery stenosis 07/20/2022 Carotid bruit 01/16/2023 Cervical disc disease 05/20/2024 Chalazion of right eye 05/20/2024 Chronic diarrhea 01/16/2023 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 Chronic low back pain 01/16/2023 Coronary atherosclerosis ([facility]) 03/20/2012 Depressive disorder ([facility]) 01/16/2023 Diabetes mellitus ([facility]) 07/03/2024 Diabetic foot ([facility]) 07/03/2024 Diabetic neuropathy ([facility]) 01/16/2023 Diabetic peripheral neuropathy associated with type 2 diabetes mellitus ([facility]) 07/03/2024 Diastolic dysfunction 09/05/2022 Disability of walking 07/03/2024 Diverticulitis of colon 03/20/2012 Dyspnea 05/20/2024 Exocrine pancreatic insufficiency ([facility]) 01/16/2023 Gastroesophageal reflux disease 01/16/2023 History of malignant neoplasm of breast 03/20/2012 Hordeolum externum (stye) 05/20/2024 Hyperlipidemia ([facility]) 07/03/2024 Hypertension ([facility]) 01/16/2023 Near syncope 07/03/2024 Hypomagnesemia 01/16/2023 Hypothyroidism ([facility]) 01/16/2023 Lumbar degenerative disc disease 05/20/2024 Lumbar spondylosis 05/20/2024 Lymph edema 05/20/2024 Lymphedema of left arm 03/20/2012 Macular degeneration 05/20/2024 Memory changes 05/20/2024 Morbid obesity (CMS/[facility]) 07/20/2022 Obstructive sleep apnea syndrome 03/20/2012 Paroxysmal atrial fibrillation ([facility]) 03/20/2012 Paroxysmal supraventricular tachycardia ([facility]) 03/26/2012 Psoriasis ([facility]) 03/20/2012 Secondary hyperparathyroidism ([facility]) 05/20/2024 Stage 3 chronic kidney disease (HCC) ([facility]) 01/16/2023 Hypertensive chronic kidney disease with stage 1 through stage 4 chronic kidney disease, or unspecified chronic kidney disease ([facility]) 07/03/2024 Thrush of mouth and esophagus ([facility]) 05/20/2024 Tremor 06/18/2024 Type 2 diabetes mellitus [...] of left shoulder 07/03/2024 Lactose intolerance 05/20/2024 half-way (current) use of insulin ([facility]) 05/20/2024 Pharyngitis 07/03/2024 CKD (chronic kidney disease), stage IV ([facility]) 07/03/2024 Stress incontinence of urine 05/20/2024 Urinary incontinence 05/20/2024 UTI (urinary tract infection) 05/20/2024 Yeast cystitis 05/20/2024 Past Medical History: Diagnosis Date Anemia Breast cancer ([facility]) Coronary heart disease ([facility]) Diverticulosis GERD (gastroesophageal reflux disease) TN (myocardial infarction) ([facility]) Myocardial [...] I will call pt. documented in this [facility]11-19-2024 Telephone encounter Note* Telephone Encounter - Jeanne Chacon - 09/30/2024 11:01 AM EST Pt is scheduled with Dr Chacon 10/01/2024. [id number] Miscellaneous Notes* Telephone Encounter - Jeanne Chacon - 09/30/2024 11:01 AM EST Pt is scheduled with Dr Chacon 10/01/2024. * Telephone Encounter - Jeanne Chacon - 09/26/2024 8:50 AM EST Tried to call pt to schedule a follow up appt for labs, unable to leave a message. documented in this [facility]11-15-2024 Telephone encounter Note* Telephone Encounter - Jeanne Chacon - 09/26/2024 8:50 AM EST Tried to call pt to schedule a follow up appt for labs, unable to leave a message. [facility] [id number] NoteCardiovascular Medicine [facility] SUBJECTIVE Chief Complaint Patient presents [...] few months. Patient here for follow up [facility]. Her diuretic was switched again back [...] Oz of fluid a day per the lean manufacturing engineer. Her most recent discharge on 07/25/24 she [...] deficiency Lymphedema of left arm Morbid obesity ([facility]) Obstructive sleep apnea syndrome Paroxysmal supraventricular tachycardia ([facility]) Psoriasis Type 2 diabetes mellitus without complication ([facility]) Mixed hyperlipidemia Diastolic dysfunction Carotid bruit Chronic diarrhea Chronic low back pain Depressive disorder Diabetes mellitus ([facility]/HCC) Diabetic neuropathy ([facility]) Exocrine pancreatic insufficiency Gastroesophageal reflux disease Hypertension Hypomagnesemia Hypothyroidism Stage 3 chronic kidney disease ([facility]/HCC) Hyperlipidemia Atrial fibrillation ([facility]/HCC) Paroxysmal atrial fibrillation ([facility]/HCC) Abdominal swelling, generalized Acute on chronic diastolic CHF (congestive heart failure) ([facility]) Anxiety Back pain with history of spinal surgery Cervical disc disease Chalazion of right eye Dyspnea Hordeolum externum (stye) Immunization due Lactose intolerance exterminator 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) use of insulin ([facility]/HCC) Lumbar degenerative disc disease Lumbar spondylosis Lymph edema Macular degeneration Memory changes Osteoarthritis Secondary hyperparathyroidism ([facility]/HCC) Stress incontinence of urine Thrush of mouth and esophagus (CMS/HCC) Urinary incontinence UTI (urinary tract infection) Yeast cystitis CARMELO (acute kidney injury) (CMS/HCC) Tremor Acquired hammer toe of right foot Ataxia Balance disorder CHF (congestive heart failure) (CMS/HCC) Dehydration Diabetic foot (CMS/HCC) Diabetic peripheral neuropathy associated with type 2 diabetes mellitus ([facility]/HCC) Disability of walking Essential tremor LPRD [...] status: Former Types: Ci (more content not included)...[facility] 09-03-2024 NotePatient here for 2 week follow up. Had echo last week and labs drawn this afternoon. Says she's feeling better. Still denies chest pain, palpitations, and bleeding on Xarelto. Review of Systems Cardiovascular: Positive for leg swelling (feet). Respiratory: Positive for shortness of breath. Musculoskeletal: Positive for muscle weakness. Neurological: Positive for tremors. All other systems reviewed and are negative.[facility] 08-20-2024 NotePatient here for follow up [facility]. Her diuretic was switched again back [...] tremors. All other systems reviewed and are negative.[facility] 08-20-2024 NoteCardiovascular Medicine [facility] SUBJECTIVE Chief Complaint Patient presents with [...] few months. Patient here for follow up [facility]. Her diuretic was switched again back [...] Oz of fluid a day per the lean manufacturing engineer. 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 insulin ([facility]/HCC) Lumbar degenerative disc disease Lumbar spondylosis Lymph edema Macular degeneration Memory changes Osteoarthritis Secondary hyperparathyroidism (CMS/HCC) Stress incontinence of urine Thrush of mouth and esophagus ([facility]/HCC) Urinary incontinence UTI (urinary tract infection) Yeast cystitis CARMELO (acute kidney injury) (CMS/HCC) Tremor Acquired hammer toe of right foot Ataxia Balance disorder CHF (congestive heart failure) ([facility]/HCC) Dehydration Diabetic foot ([facility]) Diabetic peripheral neuropathy associated with type 2 diabetes mellitus ([facility]) Disability of walking Essential tremor LPRD (laryngopharyngeal reflux disease) Mass of right axilla Paresthesia Throat tightness Type 2 diabetes mellitus with hyperglycemia, with long-term current use of insulin ([facility]) Venous insufficiency (chronic) (peripheral) Debility Past Medical History: Diagnosis Date Atrial fibrillation ([facility]/HCC) Cancer ([facility]) Carotid artery stenosis Coronary artery disease Diabetes mellitus ([facility]) GERD (gastroesophageal reflux disease) [...] All other systems reviewed (more content not included)...[facility]09-10-[facility] History of Present illness Narrative* Christel [...] on chronic diastolic CHF (congestive heart failure) ([facility]) 05/20/2024 CARMELO (acute kidney injury) ([facility]) 05/20/2024 Anxiety 05/20/2024 Aortic valve disorder 08/20/2012 Back pain with history of spinal surgery 05/20/2024 Benign essential hypertension ([facility]) 04/02/2012 Carotid artery stenosis 07/20/2022 Carotid bruit 01/16/2023 Cervical disc disease 05/20/2024 Chalazion of right eye 05/20/2024 Chronic diarrhea 01/16/2023 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 Chronic low back pain 01/16/2023 Coronary atherosclerosis ([facility]) 03/20/2012 Depressive disorder ([facility]) 01/16/2023 Diabetes mellitus ([facility]) 07/03/2024 Diabetic foot ([facility]) 07/03/2024 Diabetic neuropathy ([facility]) 01/16/2023 Diabetic peripheral neuropathy associated with type 2 diabetes mellitus ([facility]) 07/03/2024 Diastolic dysfunction 09/05/2022 Disability of walking 07/03/2024 Diverticulitis of colon 03/20/2012 Dyspnea 05/20/2024 Exocrine pancreatic insufficiency ([facility]) 01/16/2023 Gastroesophageal reflux disease 01/16/2023 History of malignant neoplasm of breast 03/20/2012 Hordeolum externum (stye) 05/20/2024 Hyperlipidemia ([facility]) 07/03/2024 Hypertension ([facility]) 01/16/2023 Near syncope 07/03/2024 Hypomagnesemia 01/16/2023 Hypothyroidism ([facility]) 01/16/2023 Lumbar degenerative disc disease 05/20/2024 Lumbar spondylosis 05/20/2024 Lymph edema 05/20/2024 Lymphedema of left arm 03/20/2012 Macular degeneration 05/20/2024 Memory changes 05/20/2024 Morbid obesity ([facility]) 07/20/2022 Obstructive sleep apnea syndrome 03/20/2012 Paroxysmal atrial fibrillation ([facility]) 03/20/2012 Paroxysmal supraventricular tachycardia ([facility]) 03/26/2012 Psoriasis ([facility]) 03/20/2012 Secondary hyperparathyroidism ([facility]) 05/20/2024 Stage 3 chronic kidney disease (HCC) ([facility] 01/16/2023 Hypertensive chronic kidney disease with stage 1 through stage 4 chronic kidney disease, or unspecified chronic kidney disease ([facility]) 07/03/2024 Thrush of mouth and esophagus ([facility]) 05/20/2024 Tremor 06/18/2024 Type 2 diabetes mellitus with hyperglycemia, with long-term current use of insulin ([facility]) 07/03/2024 Venous insufficiency (chronic) (peripheral) 07/03/2024 Essential tremor 07/08/2024 Balance disorder 07/08/2024 Ataxia 07/08/2024 Diabetic peripheral neuropathy ([facility]) 07/08/2024 Paresthesia 07/08/2024 Sensory ataxia 07/10/2024 Debility 07/10/2024 Weakness 07/10/2024 Paresthesias 07/10/2024 Resolved Ambulatory Problems Diagnosis Date Noted Acute pain of left shoulder 07/03/2024 Lactose intolerance 05/20/2024 exterminator 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) use of insulin ([facility]) 05/20/2024 Pharyngitis 07/03/2024 CKD (chronic kidney disease), stage IV ([facility]) 07/03/2024 Stress incontinence of urine 05/20/2024 Urinary incontinence 05/20/2024 UTI (urinary tract infection) 05/20/2024 Yeast cystitis 05/20/2024 Past Medical History: Diagnosis Date Anemia Breast cancer ([facility]) Coronary heart disease ([facility]) Diverticulosis GERD (gastroesophageal reflux disease) [place] (myocardial infarction) (CMS/HCC) Myocardial infarction (CMS/HCC) Type [...] contribute to throat fullness documented in this encounterDoctors Hospital of [id number] History of Present illness Narrative* Lizett Jacinto, [...] HOSP F/U after being seen IP at [facility] for worsening SOB along with lower extremity edema and lower abdominal wall edema after being taken off of Lasix. Was discharged with instructions to f/u with PCP, Cardiologies, Stem Roller Or Crusher Operator. States that she was dx with [...] of left shoulder 07/03/2024 Anemia Breast cancer ([facility]) CKD (chronic kidney disease), stage IV ([facility]) 07/03/2024 Coronary heart disease ([facility] Diverticulosis GERD (gastroesophageal reflux disease) Lactose intolerance 05/20/2024 half-way (current) use of insulin ([facility]) 05/20/2024 [place] (myocardial infarction) ([facility]) Myocardial infarction ([facility]) Pharyngitis 07/03/2024 Type II diabetes mellitus ([facility]) Urinary incontinence 05/20/2024 Yeast cystitis 05/20/2024 Past [...] [facility] Dr. [...] would need to be done through the cotton farmworker. The patient does have benzodiazepines which are [...] modifying techniques such as weighted silverware, utensil dramatic coach and/or cups with lids on them. . [...] and the medication options Weighted silverware Utensil dramatic coach to aid with writing and putting on [...] to clinic: 2 months documented in this encounterDoctors Hospital of [id number] Hospital Discharge instructionsAmbulatory Orders* Referral to Urology Time Frame: 02/15/24, Location: None [facility] Work Phone: [phone]) 798-260301-08-2024 Evaluation note* Encounter Date Diagnosis Assessment Notes Treatment Notes Treatment Clinical Notes Nov, Lumbar degenerative disc disease (ICD-10 - M51.36) [employer] Other 12-12-2023 Evaluation note* Encounter Date Diagnosis [...] will check vitamin B12 level next visit [employer] Other 12-11-2023 Evaluation note* Encounter Date Diagnosis Assessment Notes Treatment Notes Treatment Clinical Notes Oct, Lumbar degenerative disc disease (ICD-10 - M51.36) [employer] Other 12-07-2023 Evaluation note* Encounter Date Diagnosis Assessment Notes Treatment Notes Treatment Clinical Notes Oct, Bronchitis (ICD-10 - J40) Finish meds. No acute need for antibiotic at this time Oct, Diabetes mellitus with chronic kidney disease (ICD-10 - E11.22) Due for labs, followup w Dr. Mcconnell Oct, Lumbar degenerative disc disease (ICD-10 - M51.36) Pt will contact neurosurgery. [employer] Other 10-27-2023 Evaluation note* Encounter Date Diagnosis Assessment Notes Treatment Notes Treatment Clinical Notes Aug, Chronic kidney disease, stage 4 (severe) (ICD-10 - N18.4) [employer] Other 10-24-2023 Evaluation note* Encounter Date Diagnosis [...] (ICD-10 - M51.36) Pt requests referral to [facility]. Reviewed OARRS report. Aug, Stress incontinence of urine (ICD-10 - N39.3) R/o infection. Discussed could be related to her diabetes med as well. [employer] Other 10-12-2023 Evaluation note* Encounter Date Diagnosis Assessment Notes Treatment Notes Treatment Clinical Notes Aug, Lumbar degenerative disc disease (ICD-10 - M51.36) [employer] Other 09-11-2023 Evaluation note* Encounter Date Diagnosis Assessment Notes Treatment Notes Treatment Clinical Notes Jul, Lumbar degenerative disc disease (ICD-10 - M51.36) [employer] Other 09-05-2023 Evaluation note* Encounter Date Diagnosis [...] refill. Oarrs reviewed. No med changes needed. [employer] Other 07-05-2023 Evaluation note* Encounter Date Diagnosis Assessment Notes Treatment Notes Treatment Clinical Notes May, C. difficile colitis (ICD-10 - A04.72) [employer] Other 06-19-2023 Evaluation note* Encounter Date Diagnosis Assessment Notes Treatment Notes Treatment Clinical Notes Apr, Skin candidiasis (ICD-10 - B37.2) Discussed this is related to her hyperglycemia. Will treat w nystatin, but needs improvement in diet and glucose readings. Apr, Type 2 diabetes mellitus with hyperglycemia, unspecified whether buttermaker continuous churn insulin use (ICD-10 - E11.65) Pt agrees to see Dr Mcconnell again. Recently sent to ER for glucose of 608. 19 Apr, 2023 Tremor of both hands (ICD-10 - R25.1) Referral to Dr. Lopez Apr, Memory changes (ICD- 10 - R41.3) Referral to Dr. Lopez Apr, Gastroesophageal reflux disease without esophagitis (ICD-10 - K21.9) Improved on carafate w PPI. [employer] Other 06-01-2023 Evaluation note* Encounter Date Diagnosis Assessment Notes Treatment Notes Treatment Clinical Notes Apr, Gastroesophageal ref lux disease without esophagitis (ICD-10 - K21.9) [employer] Other 04-28-2023 Evaluation note* Encounter Date Diagnosis [...] get lab ordered on 02/20 today Feb, half-way (current) use of insulin (ICD-10 - Z79.4) [employer] Other 04-26-2023 Evaluation note* Encounter Date Diagnosis Assessment Notes Treatment Notes Treatment Clinical Notes Feb, C. difficile colitis (ICD-10 - A04.72) [employer] Other 04-17-2023 Evaluation note* Encounter Date Diagnosis Assessment Notes Treatment Notes Treatment Clinical Notes Feb, Gastroesophageal ref lux disease without esophagitis (ICD-10 - K21.9) [employer] Other 04-14-2023 Evaluation note* Encounter Date Diagnosis Assessment Notes Treatment Notes Treatment Clinical Notes Feb, Chronic diarrhea (ICD-10 - K52.9) [employer] Other 04-11-2023 Evaluation note* Encounter Date Diagnosis [...] it really overall has not been helpful. [employer] Other 01-13-2023 Evaluation note* Encounter Date Diagnosis Assessment Notes Treatment Notes Treatment Clinical Notes Nov, Type 2 diabetes mellitus with hyperglycemia, unspecified whether penitentiary insulin use (ICD-10 - E11.65) [employer] Other 10-14-2021 Evaluation note* Encounter Date Diagnosis [...] training 6. Follow up in 3 months. [employer] Other Evaluation + Plan note No data available for this section [facility] [place] Evaluation + Plan note Future Appointments Appointment Date:11/06/2024 11:00:00 AM Scheduled Provider: Location:[facility] Appointment Type:URO Nurse Visit Appointment Date:12/08/2024 11:40:00 AM Scheduled Provider:FRANCHESCA PERAZA PA-C Location:[facility] Appointment Type:URO Office Visit Diagnostic Tests Pending * Renal Function Panel 11/04/24 [facility] evaluation + Plan note Future Appointments Appointment Date:12/08/2024 11:40:00 AM Scheduled Provider:FRANCHESCA PERAZA PA-C Location:[facility] Appointment Type:URO Office Visit Appointment Date:12/18/2024 11:20:00 AM Scheduled Provider:FRANCHESCA PERAZA PA-C Location:[facility] Appointment Type:URO Complex Office Visit [facility] evaluation + Plan note Future Appointments Appointment Date:12/18/2024 11:20:00 AM Scheduled Provider:FRANCHESCA PERAZA PA-C Location:[facility] Appointment Type:URO Complex Office Visit [facility] evaluation noteNo InformationNort [employer] Other evaluyukys noteNosaint [facility] [employer] Other evaluqeqxg noteNort [employer] Other evaluation note* Diagnosis Onset Date Resolution Status Chalazion of right eye acute Immunization due acute Urinary incontinence acute [facility] Work Phone: Evaluation note* Diagnosis Onset Date Resolution Status Chalazion of right eye acute Immunization due acute Urinary incontinence acute Diabetes mellitus with hyperglycemia acute Hypertension acute Hypothyroidism acute Lumbar spondylosis acute Secondary hyperparathyroidism acute [facility] Work Phone: Evaluation note* Diagnosis Onset [...] acute Thrush of mouth and esophagus acute [facility] Work Phone: evaluation note* Diagnosis Onset [...] IV acute UTI (urinary tract infection) acute [facility] Work Phone: evaluation note* Diagnosis Onset [...] acute Thrush of mouth and esophagus acute [id number] acute Secondary hyperparathyroidism acute [facility] Work Phone: evaluation note* Diagnosis Onset [...] acute Thrush of mouth and esophagus acute [id number] acute CKD (chronic kidney disease) stage 3, GFR 30-59 ml/min acute Hyperlipidemia acute [id number] acute Secondary hyperparathyroidism acute Type 2 diabetes mellitus wit h diabetic chronic kidney disease acute Tremor acute [facility] Work Phone: Evaluation note* Diagnosis Onset [...] acute Thrush of mouth and esophagus acute [id number] acute CKD (chronic kidney disease) stage 3, GFR 30-59 ml/min acute Hyperlipidemia acute [id number] acute Secondary hyperparathyroidism acute Type 2 diabetes mellitus wit h diabetic chronic kidney disease acute Acute on chronic diastolic C HF (congestive heart failure) acute [id number] acute Tremor acute [id number] acute [facility] Work Phone: Evaluation note* Diagnosis Onset [...] acute Thrush of mouth and esophagus acute [id number] acute CKD (chronic kidney disease) stage 3, GFR 30-59 ml/min acute Hyperlipidemia acute [id number] acute Secondary hyperparathyroidism acute Type 2 diabetes mellitus wit h diabetic chronic kidney disease acute Acute on chronic diastolic C HF (congestive heart failure) acute [id number] acute Tremor acute [id number] acute Mass of right axilla acute [facility] Work Phone: Evaluation note* Diagnosis Onset [...] acute Thrush of mouth and esophagus acute [id number] acute CKD (chronic kidney disease) stage 3, GFR 30-59 ml/min acute Hyperlipidemia acute [id number] acute Secondary hyperparathyroidism acute Type 2 diabetes mellitus wit h diabetic chronic kidney disease acute Acute on chronic diastolic C HF (congestive heart failure) acute [id number] acute Tremor acute [id number] acute Mass of right axilla acute CHF (congestive heart failure) acute Dehydration acute [id number] acute [id number] acute [facility] Work Phone: Evaluation note* Diagnosis Onset [...] acute Thrush of mouth and esophagus acute [id number] acute CKD (chronic kidney disease) stage 3, GFR 30-59 ml/min acute Hyperlipidemia acute [id number] acute Secondary hyperparathyroidism acute Type 2 diabetes mellitus wit h diabetic chronic kidney disease acute Acute on chronic diastolic C HF (congestive heart failure) acute [id number] acute Tremor acute [id number]-[id number] acute Back pain with history of spinal surgery acute Cervical disc disease acute CKD (chronic kidney disease), stage IV acute Mass of right axilla acute CHF (congestive heart failure) acute Dehydration acute [id number] acute [id number] acute Dysuria acute [facility] Work Phone: Evaluation note* Diagnosis Onset Date Resolution Status Lumbar degenerative disc disease acute Thrush of mouth and esophagus acute [id number] acute CKD (chronic kidney disease) stage 3, GFR 30-59 ml/min acute Hyperlipidemia acute [id number] acute Secondary hyperparathyroidism acute Type 2 diabetes mellitus wit h diabetic chronic kidney disease acute Acute on chronic diastolic C HF (congestive heart failure) acute [id number] acute Tremor acute QWD-[id number] acute Back pain with history of spinal surgery acute Cervical disc disease acute CKD (chronic kidney disease), stage IV acute Mass of right axilla acute CHF (congestive heart failure) acute Dehydration acute [id number] acute [id number] acute Dysuria acute [facility] Work Phone: Evaluation note* Diagnosis JED (obstructive sleep apnea)- Primary Obstructive sleep apnea (adult) (pediatric) Hypothyroidism (acquired) ([facility]) Unspecified hypothyroidism documented [facility]* Diagnosis Essential tremor- Primary Diabetic polyneuropathy associated with type 2 diabetes mellitus ([facility]) Balance disorder Sensory ataxia Lack of coordination Debility Unspecified debility Weakness Other malaise and fatigue Paresthesias Disturbance of skin sensation documented in this [facility]* Diagnosis JED (obstructive sleep apnea)- Primary Obstructive sleep apnea (adult) (pediatric) LPRD (laryngopharyngeal reflux disease) Acute laryngitis, without mention of obstruction Throat tightness documented in this encounter [facility] HealthcareHistory general Narrative - Reported* Type Description [...] History COLONOSCOPY 04/10/2019 Hospitalization History See above [employer] Other Hisfqul general Narrative - Reported* Type Description Date [...] 2003 Surgical History Removal of sigmoid colon 2005 Surgical History Heart cath Surgical History back surgery 2014 Surgical History CARDIAC CATH X2 Surgical History SHOULDER PROCEDURE 2015 Surgical History COLONOSCOPY 08/2017 Surgical History COLONOSCOPY 04/10/2019 Hospitalization History See above [facility] [employer] Other [facility] general Narrative - [facility] Other [facility] general Narrative - [facility]ortedPro[facility] Other [facility] general Narrative - Reported* Type Description Date [...] GERD 2022 Hospitalization History DIABETES ISSUES 2022 [employer] Other Hospital Discharge instructions No data available for this section [facility] Discharge instructionsAmbulatory Orders* Referral to Neurology Time Frame: 06/16/24, Location: None Selected [facility] Work Phone: Hospital Discharge instructionsAmbulatory Orders* Referral to ENT Time Frame: 06/25/24, Location: None Selected [facility] Work Phone: Hospital Discharge instructions Additional Instructions Follow-up with your primary care doctor as you might need medication adjustments to manage your high blood sugar Return to ED if develop worsening symptoms [facility] Work [facility]: Hospital Discharge instructionsAmbulatory Orders* Initiate [...] gluteal cleft only 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 for further treatment of your blood pressure, and congestive [facility] Work Phone: Progress note No data available for this section [facility] [place] Reason for referral (narrative)No reason for referral information availablePromedica [facility] Work Phone: Retgdp for visit Narrative* Consultation (Routine) - Closed Specialty Diagnoses / Procedures Referred By Contac t Referred To Contact Neurology Diagnoses Tremor, unspecified Procedures [place] OFFICE/OUTPATIENT NEW LOW MDM 30 MINUTES Shantel Steven MD [address] [place] [address] Gio Choe MD [address] [place] [address] Referral ID Status Reason Start Date Expiration Date V isits Requested Visits Authorized [id number] Closed Consult and Treat 06/27/2024 12/24/2024 1 [...] se, stage 4 (severe) (N18.4) Referral Organization [facility] helene Referring Provider First Name Shantel Referring Provider Last Name Tenisha Referring Provider [facility] Referred Organization [facility] Nephrology Referred Provider Cherie Rapp Referred Address [address] [place], [place],[address] Referred Provider Specialty Nephrology Referral Priority Routine General Notes Mariela Kingston 11:35:41 AM >received today, sent P2P Reason *FU 09/13 lumbar p ain Diagnosis 1 Lumbar degenerative disc disease (M51.36) Referral Organization [facility] helene Referring Provider First Name Shantel Referring Provider Last Name Tenisha Referring Provider [facility] Referred Organization [facility] Referred Provider Terell Soliz Referred Address [address] [facility],[place], [place],[address] Referred Provider Specialty Pain Medicin e Referral Priority Routine General Notes Gamalrenetta Mariela 03:09:25 PM >received today, waiting for notes to be locked Mariela Kingston 09/06/2023 10:08:29 AM >notes locked, referral faxed Clinical Notes F: [id number] Reason Poorly controlled di abetes Diagnosis 1 Type 2 diabetes maranda itus with hyperglycemia, unspecified whether buttermaker continuous churn insulin use (E11.65) Referral Organization [facility] Referring Provider First Name Shantel Referring Provider Last Name Tenisha Referring Provider Specialty Family [facility] [employer] Referred Organization Unknown Facility Referred Provider Joshua Mcconnell Referred Provider Specialty Internal Med icine Referral Priority Routine Reason tremor and memory lo ss - family history of dementia Diagnosis 1 Tremor of both hands (R25.1) Referral Organization [facility] [employer] helene Referring Provider First Name Shantel Referring Provider Last Name Tenisha Referring Provider Specialty [facility] [employer] Referred Organization Unknown Facility Referred Provider Emery [...] disc disease Thrush of mouth and esophagus [id number] Secondary hyperparathyroidism Chief Complaint medication review Amb [...] disc disease Thrush of mouth and esophagus [id number] CKD (chronic kidney disease) stage 3, GFR 30-59 ml/min Hyperlipidemia [id number] Secondary hyperparathyroidism Type 2 diabetes mellitus with [...] disc disease Thrush of mouth and esophagus [id number]-[id number] CKD (chronic kidney disease) stage 3, GFR 30-59 ml/min Hyperlipidemia [id number] 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 Acute on chronic diastolic CHF (congestive heart failure) [id number] Tremor [id number] Chief Complaint difficulty swallowin g Amb Documentation [...] disc disease Thrush of mouth and esophagus [id number] CKD (chronic kidney disease) stage 3, GFR 30-59 ml/min Hyperlipidemia [id number]-[id number] 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 Acute on chronic diastolic CHF (congestive heart failure) [id number] Tremor [id number] Mass of right axilla Chief Complaint difficulty [...] disc disease Thrush of mouth and esophagus [id number] CKD (chronic kidney disease) stage 3, GFR 30-59 ml/min Hyperlipidemia [id number] 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 Acute on chronic diastolic CHF (congestive heart failure) [id number] Tremor [id number] Mass of right axilla Chief Complaint difficulty [...] disc disease Thrush of mouth and esophagus [id number]-[id number] CKD (chronic kidney disease) stage 3, GFR 30-59 ml/min Hyperlipidemia [id number]-IQCN-[id number] 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 Acute on chronic diastolic CHF (congestive heart failure) [id number] Tremor [id number] Mass of right axilla CHF (congestive heart failure) Dehydration [id number] [id number] Chief Complaint difficulty swallowin g Amb Documentation [...] disc disease Thrush of mouth and esophagus [id number] CKD (chronic kidney disease) stage 3, GFR 30-59 ml/min Hyperlipidemia [id number] 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 Acute on chronic diastolic CHF (congestive heart failure) VRF-[id number] Tremor [id number] Back pain with history of spinal surgery Cervical disc disease CKD (chronic kidney disease), stage IV Mass of right axilla CHF (congestive heart failure) Dehydration [id number]-[id number]-[id number]-[id number] Dysuria Chief Complaint throat problem SOB RENAL CKD 4 [facility] follow up 3 month f/u Kidney injury, high BP R30.0 UA Amb Documentation [facility] f/u:Pulmonary Adema Reason for Visit Lumbar degenerative disc disease Thrush of mouth and esophagus [id number] CKD (chronic kidney disease) stage 3, GFR 30-59 ml/min Hyperlipidemia [id number]-[id number] 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 Acute on chronic diastolic CHF (congestive heart failure) [id number]-[id number] Tremor [id number] Back pain with history of spinal surgery Cervical disc disease CKD (chronic kidney disease), stage IV Mass of right axilla CHF (congestive heart failure) Dehydration QKQ-[id number] TVL-[id number] Dysuria Chief Complaint Admit Date gen weakness [...] Gastroesophageal reflux disease (GERD) F [facility] 2024 3:21pm [facility] ER:Abd Pain/Chronic Pain January 14, 2025 [...] GERD (gastroesophageal reflux disease) F [facility] 2024 12:52pm Lumbar degenerative disc disease Februar y 2024 12:52pm Seborrhea capitis in adult December 12:52pm Type 2 diabetes mellitus wit h diabetic chronic kidney disease December 26, 2024 12:52pm Acute on chronic diastolic CHF (congesti ve heart failure) January 06, 2025 3:21pm CKD (chronic kidney disease), [facility] GERD (gastroesophageal reflux disease) F [facility] 2024 3:21pm Lumbar degenerative disc disease [...] Gastroesophageal reflux disease (GERD) F [facility] 2024 3:21pm TB ER:Abd Pain/Chronic Pain [...] GERD (gastroesophageal reflux disease) F [facility] 2024 12:52pm Lumbar degenerative disc disease Februar y 2024 12:52pm Seborrhea capitis in adult December 12:52pm Type 2 diabetes mellitus wit h diabetic chronic kidney disease December 26, 2024 12:52pm Acute on chronic diastolic CHF (congesti ve heart failure) January 06, 2025 3:21pm CKD (chronic kidney disease), stage IV F [facility] 2024 3:21pm GERD (gastroesophageal reflux disease) F [facility] 2024 3:21pm Lumbar degenerative disc disease 2024 3:21pm Type 2 diabetes mellitus wit h hyperglycemia, with long-term current use of January 06, 2025 3:21pm Acute on chronic diastolic CHF (congesti ve heart failure) January 14, 2025 10:00am C. difficile diarrhea January 14, 2025 10 :00am GERD (gastroesophageal reflux disease) M [facility] 2024 10:00am Type 2 diabetes mellitus wit h hyperglycemia, with long-term current use of January 14, 2025 10:00am Chief Complaint Admit Date RENAL HOSP F/U November 11, 2024 1:26pm Amb Documentation December 08, 2024 2 :07pm 3 month f/u-HIGH RISK December 09, 2024 1:24pm Gerd/Diabetes-HIGH RISK December 26, 025 12:52pm Gastroesophageal reflux disease (GERD) F [facility] 2024 3:21pm TBH ER:Abd Pain/Chronic Pain [...] kidney disease), stage IV F [facility] 2024 3:21pm GERD (gastroesophageal reflux disease) F [facility] 2024 3:21pm Lumbar degenerative disc disease [...] Gastroesophageal reflux disease (GERD) F [facility] 2024 3:21pm TBH ER:Abd Pain/Chronic Pain [...] kidney disease), stage IV F [facility] 2024 3:21pm GERD (gastroesophageal reflux disease) F [facility] 2024 3:21pm Lumbar degenerative disc disease uar 2024 3:21pm Type 2 diabetes mellitus wit h hyperglycemia, with long-term current use of January 06, 2025 3:21pm Acute on chronic diastolic CHF (congesti ve heart failure) January 14, 2025 10:00am C. difficile diarrhea January 14, 2025 10 :00am GERD (gastroesophageal reflux disease) [facility] 2024 10:00am Type 2 diabetes mellitus wit h hyperglycemia, with long-term current use of January 14, 2025 10:00am Acute on chronic diastolic CHF (congesti ve heart failure) February 09, 2025 1:58pm CKD (chronic kidney disease), stage IV [facility] 2024 1:58pm Diarrhea February 09, 2025 1:5 8pm GERD (gastroesophageal reflux disease) [facility] 2024 1:58pm Lumbar degenerative disc disease [...] Gastroesophageal reflux disease (GERD) F [facility] 2024 3:21pm TBH ER:Abd Pain/Chronic Pain [...] 2024 12:52pm Benign essential tremor December 26 12:52pm Bloated abdomen December 26, 2024 12:52pm GERD (gastroesophageal reflux disease) F [facility] 2024 12:52pm Lumbar degenerative disc disease Februar y 2024 12:52pm Seborrhea capitis in adult December 12:52pm Type 2 diabetes mellitus wit h diabetic chronic kidney disease December 26, 2024 12:52pm Acute on chronic diastolic CHF (congesti ve heart failure) January 06, 2025 3:21pm CKD (chronic kidney disease), stage IV F [facility] 2024 3:21pm GERD (gastroesophageal reflux disease) F [facility] 2024 3:21pm Lumbar degenerative disc disease [...] 2024 3:21pm GERD (gastroesophageal reflux disease) F [facility]20[facility] 3:21pm Lumbar degenerative disc disease Februar y 2024 3:21pm Type 2 diabetes mellitus wit h hyperglycemia, with long-term current use of January 06, 2025 3:21pm Acute on chronic diastolic CHF (congesti ve heart failure) January 14, 2025 10:00am C. difficile diarrhea January 14, 2025 10 :00am GERD (gastroesophageal reflux disease) [facility] 2024 10:00am Type 2 diabetes mellitus wit h hyperglycemia, with long-term current use of January 14, 2025 10:00am Acute on chronic diastolic CHF (congesti ve heart failure) February 09, 2025 1:58pm CKD (chronic kidney disease), stage IV [facility] 2024 1:58pm Diarrhea February 09, 2025 1:5 8pm GERD (gastroesophageal reflux disease) [facility] 2024 1:58pm Lumbar degenerative disc disease [...] Admit Date Gastroesophageal reflux disease (GERD) F [facility]20[facility] 3:21pm TB ER:Abd Pain/Chronic Pain January 14, [...] kidney disease), stage IV F [facility] 2024 3:21pm GERD (gastroesophageal reflux disease) F [facility] 2024 3:21pm Lumbar degenerative disc disease Februar y 2024 3:21pm Type 2 diabetes mellitus wit h hyperglycemia, with long-term current use of January 06, 2025 3:21pm Acute on chronic diastolic CHF (congesti ve heart failure) January 14, 2025 10:00am C. difficile diarrhea January 14, 2025 10 :00am GERD (gastroesophageal reflux disease) [facility] 2024 10:00am Type 2 diabetes mellitus wit h hyperglycemia, with long-term current use of January 14, 2025 10:00am Acute on chronic diastolic CHF (congesti ve heart failure) February 09, 2025 1:58pm CKD (chronic kidney disease), stage IV [facility] 2024 1:58pm Diarrhea February 09, 2025 1:5 8pm GERD (gastroesophageal reflux disease) [facility] 2024 1:58pm Lumbar degenerative disc disease January [...] 12:10pm R30.0 June 02, 2025 12:3 0pm [facility] F/U June 04, 2025 9:49 am [...] 12:10pm R30.0 June 02, 2025 12:3 0pm [facility] F/U June 04, 2025 9:49 am [...] 12:10pm R30.0 June 02, 2025 12:3 0pm [facility] F/U June 04, 2025 9:49 am [...] 12:10pm R30.0 June 02, 2025 12:3 0pm [facility] F/U June 04, 2025 9:49 am [...] atrial fibrillat ion August 05, 2025 9:32am Chief Complaint Admit Date UA, confusion, hallucination June 02, 2025 12:10pm R30.0 June 02, 2025 12:3 0pm [facility] F/U June 04, 2025 9:49 am [...] 16pm Weakness August 17, 2025 1: 16pm Additional Source Comments INFORMATION SOURCE (unrecogn ized section and content) DATE CREATED AUTHOR 05/10/2018 [facility] DATE CREATED AUTHOR AUTHOR'S ORGANIZ ATION 03/10/2023 [facility] DATE CREATED AUTHOR AUTHOR'S ORGANIZ ATION 10/04/2024 [facility] EPIC DATE CREATED AUTHOR AUTHOR'S ORGANIZ ATION 12/21/2024 [place] [facility] DATE CREATED AUTHOR AUTHOR'S ORGANIZ ATION 07/17/2025 [facility] DATE CREATED AUTHOR AUTHOR'S ORGANIZ ATION 08/22/2025 [facility] REASON FOR VISIT [...] Active Start: May 13, 2025 Team Status: Active Member Role Status [...] 2025 Martine Guerrero Attending Provider Active Start: [facility] 2024 Team Status: Active Member Role [...] January 18, 2024 Franchesca Sullivan APRN MAINTENANCE TEAM MEMBER-C Attending Provider Act chiqui Start: January 18, [...] August 07, 2024 End: August 07, 2024 Hvac R Instructor Relationship Specialty Start Date End Date Shantel Steven MD [address] [place] [address] PCP - General Family Medicine 06/25/24 Hvac R Instructor Relationship Specialty Start Date End Date Shantel Steven MD [address] [place] [id number] PCP - General Family Medicine 06/25/24 Hvac R Instructor Relationship Specialty Start Date End Date Shantel Steven MD [address] [place] [phone] PCP - General Family Medicine 06/25/24 Hvac R Instructor Relationship Specialty Start Date End Date Shantel Steven MD [address] [facility] [id number] PCP - General Family Medicine 06/25/24 Hvac R Instructor Relationship Specialty Start Date End Date Shantel Steven MD [address] [facility] [place] [phone] PCP - General Family Medicine 06/25/24 Hvac R Instructor Relationship Specialty Start Date End Date Shantel Steven MD [address] [facility] [phone] PCP - General Family Medicine 06/25/24 Hvac R Instructor Relationship Specialty Start Date End Date Shantel Steven MD [address] [facility] [phone] PCP - General Family Medicine 06/25/24 Hvac R Instructor Relationship Specialty Start Date End Date Shantel Steven MD [address] [facility] [place] [phone] PCP - General Family Medicine 06/25/24 Team [...] Provider Active Sta rt: August 20, 2025 Team Status: Inactive Member Role Status Dates [place] DO Attending Provider Active Sta rt: August 20, 2025 End: August 20, 2025 Goals (unrecognized section and content) [...] BE BASED ON THE PRIMARY CLINICAL RECORDS. [employer] [facility]. provides no warranty or guarantee of the accuracy or completeness of information in this document.
== END 2025-08-24 17:23 | disposition hospice, inpatient (51) | DRG 291 ==
LOC: ER 10:51 → MS 08-24 14:51
PROVIDERS: Admitting Provider Internal Medicine; Emergency Provider Student in an Organized Health Care Education/Training Program; PCP Family Medicine; Visit Provider Internal Medicine
DX: I13.0 Hypertensive heart and chronic kidney disease with heart failure and stage 1 through stage 4 chronic kidney disease, or unspecified chronic kidney disease (principal); I50.33 Acute on chronic diastolic (congestive) heart failure; J96.21 Acute and chronic respiratory failure with hypoxia; J96.22 Acute and chronic respiratory failure with hypercapnia; N18.4 Chronic kidney disease, stage 4 (severe); N17.9 Acute kidney failure, unspecified; N39.0 Urinary tract infection, site not specified; I48.20 Chronic atrial fibrillation, unspecified; F05 Delirium due to known physiological condition; Z68.41 Body mass index [BMI] 40.0-44.9, adult; E11.22 Type 2 diabetes mellitus with diabetic chronic kidney disease; Z79.4 Long term (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 insulin; E66.01 Morbid (severe) obesity due to excess calories; Z79.01 Long term (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 anticoagulants; R68.0 Hypothermia, not associated with low environmental temperature; D64.9 Anemia, unspecified; Z91.199 Patient's noncompliance with other medical treatment and regimen due to unspecified reason; Z99.81 Dependence on supplemental oxygen; B96.20 Unspecified Escherichia coli [E. coli] as the cause of diseases classified elsewhere; E03.9 Hypothyroidism, unspecified; K21.9 Gastro-esophageal reflux disease without esophagitis; Z90.49 Acquired absence of other specified parts of digestive tract; Z90.710 Acquired absence of both cervix and uterus; Z90.13 Acquired absence of bilateral breasts and nipples; Z85.3 Personal history of malignant neoplasm of breast; Z79.899 Other long term (current) drug therapy; Z79.890 Hormone replacement therapy; R45.1 Restlessness and agitation; Z66 Do not resuscitate; J98.4 Other disorders of lung
CPT/HCPCS: 36415; 36600; 51702; 71045; 71250; 80048; 80053; 80076; 81001; 82800; 82805; 82948; 83605; 83735; 83880; 84484; 85025; 85027; 87040; 87086; 87088; 87186; 93005; 94660; 94761; 96365; 96367; 96375; 99285; J0696; J1335; J1938; J2270; J3486